=== PATIENT | female | born 1990 | race Caucasian/White ===

== ENCOUNTER 2021-06-17 15:57 | Emergency (ER) | payer MEDICAID, SELFPAY ==
[2021-06-17 15:58] VITALS: BP 136/87; PULSE 117; RESP 18; TEMP 36.1; O2SAT 97; BMI 37.1
--- NOTE | 2021-06-17 20:01 | RAD_ITS ---
EXAM: XR RIGHT FOOT COMPLETE, 3 OR MORE VIEWS CLINICAL INDICATION: Injury/Pain TECHNIQUE: Frontal, lateral and oblique views of the right foot. This report was created using [employer] report generation technology. COMPARISON: None. FINDINGS: BONES/JOINTS: Prominent plantar calcaneal enthesophyte. No significant degenerative joint effusion. No acute fracture. No subluxation. Normal alignment. No sclerotic or destructive changes observed. SOFT TISSUES: Soft tissue fullness along the lateral aspect of the forefoot centered at the metatarsophalangeal joint. No soft tissue gas identified. Soft tissue swelling is seen about the dorsal aspect of the forefoot. No radiopaque foreign body. RAD/Foot min 3 Views IMPRESSION: Soft tissue swelling along the lateral aspect of the forefoot. Differential includes cellulitis, phlegmon, abscess, swelling, and hematoma in the appropriate setting. Electronically Signed: Perico Olguin MD at 21:18 EST Tel , Service support ,
--- NOTE | 2021-06-17 20:02 | ED.VIS.LOWEX ---
HPI History of Present Illness HPI Narrative: Patient presents with redness and swelling to her right foot that began yesterday. Patient states it is getting worse. Patient states she's had an infection over this area in the past. Patient admits to some drainage coming from the area. Patient states the pain is constant. Patient describes it as burning. Patient states it is worse with ambulation and better with elevation and rest. Patient denies any trauma or injury. Patient denies any paresthesias or weakness. Chief Complaint: Wound Informant: patient Onset/Context/Timing Onset: Yesterday Context: Gradual Onset Timing: Continuous Quality of Pain: Burning Location: Right foot Worsened by: Ambulation Relieved by: Rest Associated Symptoms Associated Symptoms: Negative for Parasthesia, Weakness and Loss of Funtion PFSH PFSH Medical History Asthma Diabetes Home Medications albuterol sulfate 90 mcg/actuation aerosol inhaler 2 puff INHALATION Q6H PRN #8.5 g 04/15/21 [Rx Last Taken Unknown] amoxicillin-pot clavulanate 875 mg PO Q12H #20 tablet 06/17/21 [Rx Last Taken Unknown] sulfamethoxazole-trimethoprim 1 tab PO BID #20 tablet 06/17/21 [Rx Last Taken Unknown] Allergy/AdvReac Type Severity Reaction Status Date / Time No Known Allergies Allergy Unverified 06/17/21 16:00 Surgical History no surgical history Social History Smoking Status: Current some day smoker tobacco type: cigarettes ROS ROS ED Constitutional Constitutional ED: Denies chills or fever(s) Eyes Eyes: Denies blurry vision or change in vision ENT ENT ED: Denies rhinorrhea or sore throat Cardiovascular Cardiovascular: Denies chest pain or palpitations Respiratory/Chest Respiratory/Chest: Denies cough or dyspnea Gastrointestinal Gastrointestinal: Denies nausea or vomiting Genitourinary Genitourinary ED: Denies dysuria or hematuria Musculoskeletal Musculoskeletal: Denies back pain or neck pain Integumentary Denies abscess or rash Neurologic Neurologic: Denies headache(s) or weakness Allergic/Immunologic Allergic/Immunologic ED: Denies mouth swelling or urticaria EXAM Physical Exam Const Vital Signs: 06/17/21 15:58 06/17/21 20:52 06/17/21 20:53 Temperature 96.9 F L 96.9 F L Temperature Source Temporal Temporal Pulse Rate 117 H 89 89 Respiratory Rate 18 18 18 Blood Pressure 136/87 H 134/84 H 134/84 H Blood Pressure Mean 103 100 100 Pulse Ox 97 97 97 Oxygen Delivery Method Room Air Room Air Room Air Positive well nourished and well developed General Appearance ED: well developed HEENT Reports moist mucous membranes Neck supple and no JVD GI normal to inspection, nondistended, normoactive bowel sounds Extremity normal to inspection Extremity Narrative: There is edema, erythema, warmth over the lateral aspect of the right forefoot. There is some mild extension of the erythema over the anterior aspect of the ankle. There is an open blister formation noted over the lateral aspect of the right foot. There is some serous drainage noted. There is no purulent discharge or drainage. Sensation was intact to light touch in all digits. Capillary refill was less than 2 seconds in all digits. Pedal pulses were equal bilaterally. General Extremety ED: Yes edema; Negative for tenderness General Extremity: edema Neuro oriented x3, CN's II-XII intact bilaterally and no sensory deficits noted Sensorium / Orientation: alert Motor Exam: strength 5/5 throughout Psych mental status grossly normal Skin no rashes or lesions noted MDM MDM MDM Narrative Medical decision making narrative: Patient was given a dose of Unasyn here. CBC shows a leukocytosis of 18.9. Comprehensive metabolic profile was essentially within normal limits with the exception of an elevated glucose of 319. Lactate was normal at 1.4. X-rays of the right foot were obtained. There are 3 views. On my interpretation, there is no acute fracture. There is no evidence of osteomyelitis. There is soft tissue swelling noted. Radiologist also interpreted the x-rays and agrees. Lab Data Attestation: I reviewed the patient's lab results. Labs: Laboratory Results - last 24 hr 06/17/21 06/17/21 06/17/21 20:30 20:30 20:30 WBC 18.9 H RBC 5.07 Hgb 13.9 Hct 42.2 MCV 83.2 MCH 27.4 MCHC 32.9 RDW Std Deviation 38.6 RDW Coeff of John 12.8 Plt Count 329 MPV 9.9 Immature Gran % (Auto) 0.600 Neut % (Auto) 70.1 H Lymph % (Auto) 22.3 [place] % (Auto) 6.6 Eos % (Auto) 0.1 Baso % (Auto) 0.3 Absolute Neuts (auto) 13.3 H Absolute Lymphs (auto) 4.22 Nucleated RBC % 0 Sodium 134 L Potassium 3.4 L Chloride 96 L Carbon Dioxide 28.0 Anion Gap 10 BUN 9 Creatinine 0.78 Estim Creat Clear Calc 99.63 Est GFR (MDRD) Af Amer 113 Est GFR (MDRD) Non-Af 93 BUN/Creatinine Ratio 11.6 Glucose 319 H Lactic Acid 1.4 Calcium 9.3 Total Bilirubin 0.70 AST 7 L ALT 14 Alkaline Phosphatase 77 Total Protein 8.4 H Albumin 3.3 Globulin 5.1 H Albumin/Globulin Ratio 0.6 L Radiography Diagnostic Testing: Clinical Impression(s) from Imaging Studies Foot X-Ray 06/17/21 20:01 IMPRESSION: Soft tissue swelling along the lateral aspect of the forefoot. Differential includes cellulitis, phlegmon, abscess, swelling, and hematoma in the appropriate setting. Electronically Signed: Perico Olguin MD at 21:18 EST Tel , Service support , Discharge Plan Triage Chief Complaint: Wound ED Provider: Rickey Shepard Dx/Rx/DC Orders Clinical Impression: Unspecified open wound, right foot, initial encounter, Cellulitis of foot, right Instructions: ED Cellulitis Prescriptions: New sulfamethoxazole-trimethoprim [sulfamethoxazole-trimethoprim] 1 TABLET tablet 1 tab PO BID Qty: 20 RF: 0 amoxicillin-pot clavulanate [amoxicillin-pot clavulanate] 875 MG tablet 875 mg PO Q12H Qty: 20 RF: 0 No Action albuterol sulfate [ProAir HFA] 90 mcg/actuation HFA aerosol inhaler 2 puff inhalation Q6H PRN (Reason: shortness of breath or wheezing) Qty: 8.5 RF: 0 Primary Care Provider: Care Physician,No Primary Referrals: Lester Elliott MD [STAFF PHYSICIAN] - 3-5 Days Care Physician,No Primary [Primary Care Provider] - Disposition Disposition: Home, Self Care
[2021-06-17 20:44] LABS: Absolute Lymphocyte Count 4.22 X10^3/uL (0.83-4.51); Absolute Neutrophil Count 13.3 X10^3/uL (2.0-7.7); Basophil# 0.05 X10^3/uL; Basophil% 0.3 % (0-1); Eosinophil# 0.02 X10^3/uL; Eosinophils% 0.1 % (0-5); Hematocrit 42.2 % (37-47); Hemoglobin 13.9 g/dL (12.0-15.0); Lymphocyte # 4.22 X10^3/ul (0.83-4.51); Lymphocyte % 22.3 % (19-41); Mean Corp Hgb Conc 32.9 g/dL (32-36); Mean Corpuscular Hgb 27.4 pg (27.0-32.0); Mean Corpuscular Volume 83.2 fL (81-99); Mean Platelet Vol. 9.9 fl (6.2-12.0); Monocyte# 1.25 X10^3/uL; Monocyte% 6.6 % (0-10); NRBC Flagged by Analyzer 0 % (0-5); Neutrophil # 13.28 X10^3/uL (2.7-7.7); Neutrophil % 70.1 % (47-70); Platelet Count 329 K/mm3 (150-450); RBC Distribution Width CV 12.8 % (11.6-14.6); RBC Distribution Width SD 38.6 fl (35.1-43.9); Red Blood Count 5.07 M/mm3 (4.2-5.4); White Blood Count 18.9 K/mm3 (4.4-11.0)
[2021-06-17 20:52] VITALS: BP 134/84; PULSE 89; RESP 18; O2SAT 97
[2021-06-17 20:53] VITALS: BP 134/84; PULSE 89; RESP 18; TEMP 36.1; O2SAT 97
[2021-06-17 21:08] LABS: ALB/GLOB Ratio 0.6 RATIO (0.9-2.4); AST(SGOT) 7 U/L (15-37); Alanine Aminotransfer ALT/SGPT 14 U/L (13-56); Albumin, Serum 3.3 g/dL (3.2-5.0); Alkaline Phosphatase 77 U/L (45-117); Anion Gap 10 (5-15); BUN 9 mg/dL (7-18); BUN/Creat Ratio 11.6 RATIO (10-20); Calcium,Total 9.3 mg/dL (8.5-10.1); Chloride 96 mmol/L (98-107); Creatinine, Serum 0.78 mg/dL (0.55-1.02); EST Glomerular Filtration Rate 93 mL/min (>60); Est Glom Filt Rate - Afr Amer 113 mL/min (>60); Estimated Creatinine Clearance 99.63 ml/min; Globulin 5.1 g/dL (2.2-4.2); Glucose 319 mg/dL (74-106); Potassium 3.4 mmol/L (3.5-5.1); Protein, Total 8.4 g/dL (6.4-8.2); Sodium Level 134 mmol/L (136-145)
[2021-06-17 21:09] LABS: Lactic Acid 1.4 mmol/L (0.4-1.9)
[2021-06-17 23:11] VITALS: BP 130/80; PULSE 82; RESP 16; O2SAT 99
== END 2021-06-17 23:11 | disposition home or self-care (01) ==
PROVIDERS: Emergency Provider Emergency Medicine
DX: L03.115 Cellulitis of right lower limb (principal); J45.909 Unspecified asthma, uncomplicated; E11.9 Type 2 diabetes mellitus without complications; F17.210 Nicotine dependence, cigarettes, uncomplicated; Z79.51 Long term (current) use of inhaled steroids
CPT/HCPCS: 36415; 73630; 80053; 83605; 85025; 87040; 96365; 96366; 99283; A4216; J0295

== ENCOUNTER 2021-06-19 09:00 | Emergency (ER) | payer MEDICAID, SELFPAY ==
[2021-06-19 09:02] VITALS: BP 127/91; PULSE 103; RESP 16; TEMP 36.3; O2SAT 98; BMI 37.7
--- NOTE | 2021-06-19 09:38 | RAD_ITS ---
STUDY: X-RAY - RIGHT FOOT CLINICAL: Female, 31 years old. Swelling and possible infection along the lateral aspect of the foot. TECHNIQUE: 3 view(s) of the foot. COMPARISON: None. FINDINGS: There is a plantar calcaneal spur. Normal visualized subtalar, talonavicular, calcaneocuboid, tarsal and tarsometatarsal articulations. Normal metatarsi. Normal metatarsophalangeal joint of the great toe. Normal tibial and fibular sesamoid bones. Normal interphalangeal joint of the great toe. Normal phalanges of the great toe. Normal second through fifth metatarsophalangeal joints. Normal interphalangeal joints and phalanges of the lesser toes. Soft tissue swelling overlying the fifth metatarsophalangeal joint. Dorsal soft tissue swelling. RAD/Foot min 3 Views IMPRESSION: Soft tissue swelling overlying the fifth metatarsophalangeal joint. A small plantar spur. Electronically Signed: Bernard Sadler MD at 10:44 EST , Service support ,
[2021-06-19 10:44] LABS: Absolute Lymphocyte Count 3.52 X10^3/uL (0.83-4.51); Absolute Neutrophil Count 7.6 X10^3/uL (2.0-7.7); Basophil# 0.06 X10^3/uL; Basophil% 0.5 % (0-1); Eosinophil# 0.05 X10^3/uL; Eosinophils% 0.4 % (0-5); Hemoglobin 13.4 g/dL (12.0-15.0); Lymphocyte # 3.52 X10^3/ul (0.83-4.51); Lymphocyte % 29.4 % (19-41); Mean Corp Hgb Conc 33.5 g/dL (32-36); Mean Corpuscular Hgb 28.2 pg (27.0-32.0); Mean Platelet Vol. 9.6 fl (6.2-12.0); Monocyte# 0.69 X10^3/uL; Monocyte% 5.8 % (0-10); NRBC Flagged by Analyzer 0 % (0-5); Neutrophil # 7.56 X10^3/uL (2.7-7.7); Neutrophil % 63.1 % (47-70); Platelet Count 342 K/mm3 (150-450); RBC Distribution Width CV 12.8 % (11.6-14.6); RBC Distribution Width SD 39.2 fl (35.1-43.9); Red Blood Count 4.76 M/mm3 (4.2-5.4)
[2021-06-19 10:55] LABS: ALB/GLOB Ratio 0.5 RATIO (0.9-2.4); AST(SGOT) 7 U/L (15-37); Alanine Aminotransfer ALT/SGPT 14 U/L (13-56); Albumin, Serum 2.9 g/dL (3.2-5.0); Alkaline Phosphatase 84 U/L (45-117); Anion Gap 6 (5-15); BUN 6 mg/dL (7-18); BUN/Creat Ratio 7.7 RATIO (10-20); Calcium,Total 9.2 mg/dL (8.5-10.1); Chloride 101 mmol/L (98-107); Creatinine, Serum 0.78 mg/dL (0.55-1.02); EST Glomerular Filtration Rate 93 mL/min (>60); Est Glom Filt Rate - Afr Amer 113 mL/min (>60); Estimated Creatinine Clearance 99.63 ml/min; Globulin 5.4 g/dL (2.2-4.2); Glucose 326 mg/dL (74-106); Potassium 4.2 mmol/L (3.5-5.1); Protein, Total 8.3 g/dL (6.4-8.2); Sodium Level 134 mmol/L (136-145)
--- NOTE | 2021-06-19 11:39 | ED.VIS.LOWEX ---
HPI History of Present Illness HPI Narrative: Patient presents with increased redness and swelling to her right foot over the past 4 days. Patient was seen here 2 days ago and her erythema was localized to the foot. Patient states that she has since noted some redness going up her leg to her knee. Patient admits to subjective fevers and chills but states her temperature was only 99-100 at home. Patient describes her pain is dull. Patient admits to some persistent serous drainage from the wound. Patient states her pain is worse with palpation. Chief Complaint: Wound Check Informant: patient Onset/Context/Timing Onset: Days (4) Context: Gradual Onset Timing: Continuous Quality of Pain: Dull Worsened by: Palpation Relieved by: Nothing Associated Symptoms Associated Symptoms: Negative for Parasthesia, Weakness and Loss of Funtion PFSH PFS Medical History Asthma Diabetes Home Medications albuterol sulfate 90 mcg/actuation aerosol inhaler 2 puff INHALATION Q6H PRN #8.5 g 04/15/21 [Rx Last Taken Unknown] amoxicillin-pot clavulanate 875 mg PO Q12H #20 tablet 06/17/21 [Rx Last Taken Unknown] sulfamethoxazole-trimethoprim 1 tab PO BID #20 tablet 06/17/21 [Rx Last Taken Unknown] Allergy/AdvReac Type Severity Reaction Status Date / Time No Known Allergies Allergy Verified 06/19/21 09:03 Social History Smoking Status: Current some day smoker tobacco type: cigarettes ROS ROS ED Constitutional Constitutional ED: Reports chills, fever(s) and subjective Eyes Eyes: Denies blurry vision or change in vision ENT ENT ED: Denies rhinorrhea or sore throat Cardiovascular Cardiovascular: Denies chest pain or palpitations Respiratory/Chest Respiratory/Chest: Reports cough; Denies dyspnea Gastrointestinal Gastrointestinal: Reports nausea and vomiting Genitourinary Genitourinary ED: Denies dysuria or hematuria Musculoskeletal Musculoskeletal: Denies back pain or neck pain Integumentary Reports rash; Denies abscess Neurologic Neurologic: Denies headache(s) or weakness Allergic/Immunologic Allergic/Immunologic ED: Denies mouth swelling or urticaria EXAM Physical Exam Const Vital Signs: 06/19/21 09:02 Temperature 97.4 F L Temperature Source Temporal Pulse Rate 103 H Respiratory Rate 16 Blood Pressure 127/91 H Blood Pressure Mean 103 Pulse Ox 98 Oxygen Delivery Method Room Air Positive well nourished, well developed and obese General Appearance ED: well developed Nutritional Appearance: obese HEENT Reports moist mucous membranes Neck full ROM Resp normal respiratory effort and clear to auscultation bilaterally Cardio regular rate and regular rhythm GI non-tender Palpation: soft Extremity Extremity Narrative: There is large blister formation over the lateral aspect of the right foot over the distal fifth metatarsal area. There is some mild serous drainage from the area. There is erythema and warmth over the dorsum and lateral aspect of the right foot. There is erythematous streaking up the left lower leg to the distal thigh. There is no calf tenderness. There is good range of motion. Sensation was intact to light touch in all digits. Capillary refill was less than 2 seconds in all digits Neuro oriented x3, CN's II-XII intact bilaterally, moves all extremities and no sensory deficits noted Sensorium / Orientation: alert Motor Exam: strength 5/5 throughout Psych mental status grossly normal MDM MDM MDM Narrative Medical decision making narrative: Patient was given a dose of Unasyn here. CBC shows a slight leukocytosis of 12.0. This is actually improved from 2 days ago. Comprehensive metabolic profile was obtained. Glucose was 326. CO2 and anion gap are normal. X-rays of the right foot were repeated today. There are 3 views. On my interpretation, there is some soft tissue swelling. There is no fracture or evidence of osteomyelitis. Radiologist also interpreted the x-rays and agrees. Given the lymphangitic streaking, I recommended admission to the hospital. Patient states she does not want to stay in the hospital and needs to go out of town tonight. I advised the patient that her lymphangitic streaking may get worse and spread systemically. Patient was instructed to continue her antibiotics as previously prescribed. Patient was instructed to return if worse in any way. Patient understood and was agreeable with the plan. All questions were answered. Lab Data Attestation: I reviewed the patient's lab results. Labs: Laboratory Results - last 24 hr 06/19/21 06/19/21 10:30 10:30 WBC 12.0 H RBC 4.76 Hgb 13.4 Hct 40.0 MCV 84.0 MCH 28.2 MCHC 33.5 RDW Std Deviation 39.2 RDW Coeff of John 12.8 Plt Count 342 MPV 9.6 Immature Gran % (Auto) 0.800 Neut % (Auto) 63.1 Lymph % (Auto) 29.4 [place] % (Auto) 5.8 Eos % (Auto) 0.4 Baso % (Auto) 0.5 Absolute Neuts (auto) 7.6 Absolute Lymphs (auto) 3.52 Nucleated RBC % 0 Sodium 134 L Potassium 4.2 Chloride 101 Carbon Dioxide 27.0 Anion Gap 6 BUN 6 L Creatinine 0.78 Estim Creat Clear Calc 99.63 Est GFR (MDRD) Af Amer 113 Est GFR (MDRD) Non-Af 93 BUN/Creatinine Ratio 7.7 L Glucose 326 H Calcium 9.2 Total Bilirubin 0.50 AST 7 L ALT 14 Alkaline Phosphatase 84 Total Protein 8.3 H Albumin 2.9 L Globulin 5.4 H Albumin/Globulin Ratio 0.5 L Radiography Diagnostic Testing: Clinical Impression(s) from Imaging Studies Foot X-Ray 06/19/21 09:38 IMPRESSION: Soft tissue swelling overlying the fifth metatarsophalangeal joint. A small plantar spur. Electronically Signed: Bernard Sadler MD at 10:44 EST , Service support , Discharge Plan Triage Chief Complaint: Wound Check ED Provider: Rickey Shepard Dx/Rx/DC Orders Clinical Impression: Cellulitis of foot, right, Acute lymphangitis of right lower extremity Instructions: ED Cellulitis, ED Lymphangitis Prescriptions: No Action albuterol sulfate [ProAir HFA] 90 mcg/actuation HFA aerosol inhaler 2 puff inhalation Q6H PRN (Reason: shortness of breath or wheezing) Qty: 8.5 RF: 0 sulfamethoxazole-trimethoprim [sulfamethoxazole-trimethoprim] 1 TABLET tablet 1 tab PO BID Qty: 20 RF: 0 amoxicillin-pot clavulanate [amoxicillin-pot clavulanate] 875 MG tablet 875 mg PO Q12H Qty: 20 RF: 0 Primary Care Provider: Care Physician,No Primary Referrals: Care Physician,No Primary [Primary Care Provider] - Disposition Disposition: Against Medical Advice
--- NOTE | 2021-06-19 12:33 | ED.RN ---
Patient refusing admission to hospital, wanting to leave AMA.
[2021-06-19 12:37] VITALS: BP 129/85; PULSE 71; RESP 15; O2SAT 98
== END 2021-06-19 12:43 | disposition left against medical advice (07) ==
PROVIDERS: Emergency Provider Emergency Medicine
DX: L03.115 Cellulitis of right lower limb (principal); L03.125 Acute lymphangitis of right lower limb; J45.909 Unspecified asthma, uncomplicated; E11.9 Type 2 diabetes mellitus without complications; F17.210 Nicotine dependence, cigarettes, uncomplicated; E66.9 Obesity, unspecified; Z79.51 Long term (current) use of inhaled steroids
CPT/HCPCS: 73630; 80053; 85025; 96365; 99284; J7050; A4216; J0295

== ENCOUNTER 2021-08-10 22:31 | Emergency (ER) | payer MEDICAID, SELFPAY ==
[2021-08-10 22:32] VITALS: BP 121/92; PULSE 127; RESP 16; TEMP 36.4; O2SAT 98; BMI 35.5
[2021-08-10 23:04] LABS: Absolute Lymphocyte Count 0.86 X10^3/uL (0.83-4.51); Absolute Neutrophil Count 12.4 X10^3/uL (2.0-7.7); Basophil# 0.03 X10^3/uL; Basophil% 0.2 % (0-1); Eosinophil# 0.04 X10^3/uL; Eosinophils% 0.3 % (0-5); Hemoglobin 14.7 g/dL (12.0-15.0); Lymphocyte # 0.86 X10^3/ul (0.83-4.51); Lymphocyte % 6.1 % (19-41); Mean Corp Hgb Conc 33.4 g/dL (32-36); Mean Corpuscular Hgb 27.5 pg (27.0-32.0); Mean Corpuscular Volume 82.4 fL (81-99); Mean Platelet Vol. 9.6 fl (6.2-12.0); Monocyte# 0.56 X10^3/uL; NRBC Flagged by Analyzer 0 % (0-5); Neutrophil # 12.44 X10^3/uL (2.7-7.7); Platelet Count 343 K/mm3 (150-450); RBC Distribution Width CV 13.1 % (11.6-14.6); Red Blood Count 5.34 M/mm3 (4.2-5.4)
[2021-08-10] MEDS: 0.9% Normal Saline 1,000 ML 1000 ML IV (23:08)
[2021-08-10] MEDS: Dicyclomine 20 MG/2 ML Vial IM (23:09)
[2021-08-10] MEDS: Ondansetron 4 MG/2 ML Vial IV (23:09)
[2021-08-10 23:13] LABS: Mucous, Urine 0 SEEN /hpf (<or=2+)
[2021-08-10 23:14] LABS: Internal QC Validated? YES +Cl - CLEAR BKGD; Pregnancy, Serum, hCG Quali. NEGATIVE Negative
[2021-08-10 23:17] LABS: Anion Gap 11 (5-15); BUN 16 mg/dL (7-18); BUN/Creat Ratio 18.6 RATIO (10-20); Calcium,Total 8.8 mg/dL (8.5-10.1); Chloride 100 mmol/L (98-107); Creatinine, Serum 0.86 mg/dL (0.55-1.02); EST Glomerular Filtration Rate 83 mL/min (>60); Est Glom Filt Rate - Afr Amer 100 mL/min (>60); Estimated Creatinine Clearance 90.36 ml/min; Glucose 406 mg/dL (74-106); Potassium 4.2 mmol/L (3.5-5.1); Sodium Level 134 mmol/L (136-145)
[2021-08-10 23:23] LABS: Color, Urine Yellow (Yellow); Glucose, Dipstick 1000 mg/dl (Normal); Leukocyte Esterase-Dipstick 25 /ul (Negative); Nitrite-Dipstick Negative (Negative); Occult Blood-Urine 250 /ul (Negative); Protein-Dipstick 30 mg/dl (Negative); Specific Gravity, Urine 1.005 (1.002-1.030); Urine Bilirubin Dipstick Negative (Negative); Urine Clarity Cloudy (Clear); Urine Urobilinogen 1 mg/dl (Normal)
[2021-08-10 23:36] LABS: Ketone-Dipstick 150 mg/dl (Negative)
[2021-08-10 23:37] LABS: White Blood Cells 5-10 SEEN /hpf (0-5)
[2021-08-10 23:38] LABS: Bacteria 1+ /hpf (None Seen); Red Blood Cells-Urine > 100 SEEN /hpf (0-5); Squamous Epithelial Cells - UA 0-5 SEEN /hpf (5-10)
--- NOTE | 2021-08-10 23:44 | EDS_ITS ---
HPI History of Present Illness Chief Complaint: Nausea/Vomiting/Diarrhea Informant: patient Onset/Context/Timing Onset: Today Context: Gradual Onset Current Severity: Moderate Maximum Severity: Moderate Narrative Narrative: Patient presents secondary to nausea, vomiting, and diarrhea. Symptoms started earlier today and progressed. She denies URI symptoms. No fever or chills. 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 She is tested for Covid daily and had a negative rapid test today. [facility] Medical History Asthma Diabetes Home Medications dicyclomine 20 mg PO TID PRN #14 tab 08/10/21 [Rx Last Taken Unknown] ondansetron 4 mg PO Q8H PRN #10 tab 08/10/21 [Rx Last Taken Unknown] Allergy/AdvReac Type Severity Reaction Status Date / Time No Known Allergies Allergy Verified 08/10/21 22:33 Social History Smoking Status: Current some day smoker tobacco type: cigarettes ROS ROS ED Constitutional Constitutional ED: Denies chills or fever(s) Eyes Eyes: Denies change in vision ENT ENT ED: Denies sore throat Cardiovascular Cardiovascular: Denies chest pain Respiratory/Chest Respiratory/Chest: Denies cough or dyspnea Gastrointestinal Gastrointestinal: Reports abdominal pain, diarrhea, nausea and vomiting Genitourinary Genitourinary ED: Denies dysuria Musculoskeletal Musculoskeletal: Denies back pain Integumentary Denies rash Neurologic Neurologic: Denies headache(s) or weakness Allergic/Immunologic Allergic/Immunologic ED: Denies urticaria EXAM Physical Exam Const Vital Signs: 08/10/21 22:32 08/10/21 23:57 Temperature 97.6 F L Temperature Source Temporal Pulse Rate 127 H 109 H Respiratory Rate 16 16 Blood Pressure 121/92 H 125/88 H Blood Pressure Mean 101 100 Pulse Ox 98 97 Oxygen Delivery Method Room Air Room Air Positive well nourished and well developed General Appearance ED: well developed HEENT Reports moist mucous membranes Eyes PERRL and EOMs intact bilaterally Neck supple Chest Wall inspection of chest normal and palpation of chest normal Resp normal respiratory effort and clear to auscultation bilaterally Cardio regular rhythm Rate: tachycardic GI non-tender Auscultation: hypoactive bowel sounds Palpation: soft Neuro oriented x3 Sensorium / Orientation: alert Psych mental status grossly normal Skin no rashes or lesions noted MDM MDM MDM Narrative Medical decision making narrative: Patient was given IV fluids along with Zofran and Bentyl. Lab work obtained. Lab Data Attestation: I reviewed the patient's lab results. Labs: Laboratory Results - last 24 hr 08/10/21 08/10/21 08/10/21 22:45 22:45 22:45 WBC 14.0 H RBC 5.34 Hgb 14.7 Hct 44.0 MCV 82.4 MCH 27.5 MCHC 33.4 RDW Std Deviation 39.0 RDW Coeff of John 13.1 Plt Count 343 MPV 9.6 Immature Gran % (Auto) 0.400 Neut % (Auto) 89.0 H Lymph % (Auto) 6.1 L [place] % (Auto) 4.0 Eos % (Auto) 0.3 Baso % (Auto) 0.2 Absolute Neuts (auto) 12.4 H Absolute Lymphs (auto) 0.86 Nucleated RBC % 0 Sodium 134 L Potassium 4.2 Chloride 100 Carbon Dioxide 23.0 Anion Gap 11 BUN 16 Creatinine 0.86 Estim Creat Clear Calc 90.36 Est GFR (MDRD) Af Amer 100 Est GFR (MDRD) Non-Af 83 BUN/Creatinine Ratio 18.6 Glucose 406 H Calcium 8.8 Serum , Qual NEGATIVE Urine Color Urine Clarity Urine pH Ur Specific [place] Urine Protein Urine Glucose (UA) Urine Ketones Urine Occult Blood Urine Nitrite Urine Bilirubin Urine Urobilinogen Ur Leukocyte Esterase Urine RBC Urine WBC Ur Squamous Epith Cells Urine Bacteria Urine Mucus POC Glucose 08/10/21 08/10/21 23:07 23:47 WBC RBC Hgb Hct MCV MCH MCHC RDW Std Deviation RDW Coeff of John Plt Count MPV Immature Gran % (Auto) Neut % (Auto) Lymph % (Auto) [place] % (Auto) Eos % (Auto) Baso % (Auto) Absolute Neuts (auto) Absolute Lymphs (auto) Nucleated RBC % Sodium Potassium Chloride Carbon Dioxide Anion Gap BUN Creatinine Estim Creat Clear Calc Est GFR (MDRD) Af Amer Est GFR (MDRD) Non-Af BUN/Creatinine Ratio Glucose Calcium Serum , Qual Urine Color Yellow Urine Clarity Cloudy Urine pH 7.0 Ur Specific [place] 1.005 Urine Protein 30 H Urine Glucose (UA) 1000 H Urine Ketones 150 A* Urine Occult Blood 250 H Urine Nitrite Negative Urine Bilirubin Negative Urine Urobilinogen 1 H Ur Leukocyte Esterase 25 H Urine RBC > 100 SEEN Urine WBC 5-10 SEEN Ur Squamous Epith Cells 0-5 SEEN Urine Bacteria 1+ Urine Mucus 0 SEEN POC Glucose 377 H Treatment and Re-Evaluation Comments:: Repeat evaluation patient does feel significantly improved. Lab work reviewed. White count does reveal elevated white count at 14 with a left shift. I believe this is likely demargination from vomiting. Chemistry studies unremarkable other than a glucose of 406. test negative. Urinalysis shows significant glucose in the urine along with 150 ketones. Patient's anion gap and bicarb are normal. Heart rate is still 105 and blood sugar still 370. She will receive a second liter of IV fluid. After second liter of IV fluid heart rate is in the 90s. She currently denies being on any medication for diabetes and states she has not been for the past couple of years. I will give her the healthcare provider directory to help her find a local primary care physician and we discussed the importance of controlling her blood sugar. Discharge Plan Triage Chief Complaint: Nausea/Vomiting/Diarrhea ED Provider: Deann Guerrero Dx/Rx/DC Orders Clinical Impression: Viral gastroenteritis Instructions: ED Gastroenteritis, Viral (Adult) Prescriptions: New ondansetron 4 mg tablet,disintegrating 4 mg PO Q8H PRN (Reason: nausea and vomiting) Qty: 10 RF: 0 dicyclomine 20 mg tablet 20 mg PO TID PRN (Reason: abdominal cramping) Qty: 14 RF: 0 Primary Care Provider: Care Physician,No Primary Referrals: Barbara Choudhury MD [STAFF PHYSICIAN] - As soon as possible Care Physician,No Primary [Primary Care Provider] - Disposition Disposition: Home, Self Care
[2021-08-10] MEDS: 0.9% Normal Saline 1,000 ML 150 ML IV (23:48)
[2021-08-10] MEDS: 0.9% Normal Saline 1,000 ML 999 ML IV (23:56)
[2021-08-10 23:57] VITALS: BP 125/88; PULSE 109; RESP 16; O2SAT 97
[2021-08-11 00:06] LABS: Bedside Glucose 377 mg/dL (70-110)
[2021-08-11 00:58] VITALS: PULSE 107; RESP 18; O2SAT 100
--- NOTE | 2021-08-12 10:10 | CASEMGMT ---
RYNE LUJAN ED follow-up: RYNE LUJAN placed call to patient's telephone number listed on demographics, no answer. Voicemail has not been set up, unable to leave message. RYNE Morales CM
== END 2021-08-11 00:59 | disposition home or self-care (01) ==
PROVIDERS: Emergency Provider Emergency Medicine; Visit Provider Emergency Medicine
DX: A08.4 Viral intestinal infection, unspecified (principal); E11.9 Type 2 diabetes mellitus without complications; F17.210 Nicotine dependence, cigarettes, uncomplicated; J45.909 Unspecified asthma, uncomplicated; Z79.899 Other long term (current) drug therapy
CPT/HCPCS: 80048; 81001; 82962; 84703; 85025; 96361; 96372; 96374; 99284; J7030; A4216; J2405

== ENCOUNTER 2021-10-24 08:17 | Emergency (ER) | payer MEDICAID, SELFPAY ==
[2021-10-24 08:18] VITALS: BP 148/92; PULSE 98; RESP 16; TEMP 36.3; O2SAT 100; BMI 33.7
[2021-10-24 08:30] VITALS: BP 148/92; PULSE 98; RESP 16; TEMP 36.3; O2SAT 100
--- NOTE | 2021-10-24 08:37 | EX.ED.DYSGE1 ---
HPI History of Present Illness Chief Complaint: Abscess Informant: patient Narrative Narrative: 31-year-old female states that she believes she was bit by something on Wednesday. She began to have some itching in the left upper quadrant of her abdomen on Wednesday and noticed a infectious looking spot. She states it is progressively swollen and is now more painful. She has had a prior occurrence of this on her neck. She denies any fevers. No current antibiotics. She has noted some clear drainage from the wound when she squeezes it [facility] Medical History Asthma Diabetes Home Medications cephalexin 500 mg PO Q6 #40 capsule 10/24/21 [Rx Last Taken Unknown] hydrocodone-acetaminophen 1 tab PO Q6H PRN PRN 3 Days #10 tablet 10/24/21 [Rx Last Taken Unknown] sulfamethoxazole-trimethoprim 1 tab PO BID #20 tablet 10/24/21 [Rx Last Taken Unknown] Allergy/AdvReac Type Severity Reaction Status Date / Time No Known Allergies Allergy Verified 10/24/21 08:19 Social History Smoking Status: Current some day smoker tobacco type: cigarettes ROS ROS ED Constitutional Constitutional ED: Denies chills, fever(s) or weight loss Eyes Eyes: Denies change in vision or diplopia ENT ENT ED: Denies ear pain, rhinorrhea or sore throat Cardiovascular Cardiovascular: Denies chest pain, orthopnea, palpitations or racing heartbeat Respiratory/Chest Respiratory/Chest: Denies cough, dyspnea or orthopnea Gastrointestinal Gastrointestinal: Denies abdominal pain, diarrhea, nausea or vomiting Genitourinary Genitourinary ED: Denies dysuria, hematuria or urinary frequency Musculoskeletal Musculoskeletal: Denies arthralgias or myalgias Integumentary Reports abscess; Denies rash Neurologic Neurologic: Denies headache(s) or weakness Psychiatric Psychiatric: Denies anxiety, depression, suicidal ideation or suicidal thoughts Endocrine Endocrinology: Denies polydipsia, polyphagia or polyuria Allergic/Immunologic Allergic/Immunologic ED: Denies mouth swelling, tongue swelling or urticaria EXAM Physical Exam Const Vital Signs: 10/24/21 08:18 10/24/21 08:30 Temperature 97.3 F L 97.3 F L Temperature Source Temporal Temporal Pulse Rate 98 98 Respiratory Rate 16 16 Blood Pressure 148/92 H 148/92 H Blood Pressure Mean 110 110 Pulse Ox 100 100 Oxygen Delivery Method Room Air Room Air Positive well nourished, well developed and obese General Appearance ED: well developed Nutritional Appearance: obese HEENT Reports normocephalic, head/scalp atraumatic, TM's clear and moist mucous membranes Negative for trauma Tympanic Membrane ED: Yes TM's clear Eyes PERRL and EOMs intact bilaterally Neck no lymphadenopathy, supple and no JVD Resp normal respiratory effort and clear to auscultation bilaterally Cardio regular rate, regular rhythm and no murmurs GI normal to inspection, nondistended, normoactive bowel sounds and non-tender Palpation: soft Back/Spine no CVA tenderness and normal ROM Extremity normal to inspection General Extremety ED: Negative for edema General Extremity: Negative for edema Neuro oriented x3 and CN's II-XII intact bilaterally Sensorium / Orientation: alert Motor Exam: strength 5/5 throughout Psych mental status grossly normal Mood & Affect: Negative for depressed or tearful Skin Skin Narrative: Left upper quadrant the patient's abdomen shows a area of faint erythema of about 5 cm in circumference. The center of this is a hardened pustule with a black center. There is no fluctuance. MDM MDM MDM Narrative Medical decision making narrative: Clinically there is not appear to be anything to be drained from this wound at this time. She will be started on antibiotics and pain medication. Instructed on warm compresses. She was advised this may change clinically to require drainage but at this time I do not believe it would be of benefit. Patient is comfortable with this plan Discharge Plan Triage Chief Complaint: Abscess ED Provider: Tesfaye Mitchell Dx/Rx/DC Orders Clinical Impression: Cutaneous abscess of abdominal wall Instructions: ED Abscess Antibiotic Treatment Only Prescriptions: New hydrocodone-acetaminophen [hydrocodone-acetaminophen] 1 TABLET tablet 1 tab PO Q6H PRN PRN (Reason: Pain) 3 Days Qty: 10 RF: 0 sulfamethoxazole-trimethoprim [sulfamethoxazole-trimethoprim] 1 TABLET tablet 1 tab PO BID Qty: 20 RF: 0 cephalexin [cephalexin] 500 MG capsule 500 mg PO Q6 Qty: 40 RF: 0 Primary Care Provider: Care Physician,No Primary Referrals: Carlos Lopez MD [STAFF PHYSICIAN] - As Needed Care Physician,No Primary [Primary Care Provider] - Disposition Disposition: Home, Self Care
== END 2021-10-24 08:53 | disposition home or self-care (01) ==
LOC: ED 08:45
PROVIDERS: Emergency Provider Emergency Medicine; Visit Provider Emergency Medicine
DX: L02.211 Cutaneous abscess of abdominal wall (principal); E11.9 Type 2 diabetes mellitus without complications; F17.210 Nicotine dependence, cigarettes, uncomplicated; J45.909 Unspecified asthma, uncomplicated
CPT/HCPCS: 99282

== ENCOUNTER 2021-10-29 08:58 | Emergency (ER) | payer MEDICAID, SELFPAY ==
[2021-10-29 08:59] VITALS: BP 140/89; PULSE 105; RESP 17; TEMP 36.1; O2SAT 98; BMI 34.6
--- NOTE | 2021-10-29 09:13 | ED.VIS.GI ---
HPI HPI - GI History of Present Illness Chief Complaint: Constipation Informant: patient Abdominal Pain/Flank Pain Onset: Weeks (1) Context: Gradual Onset Timing: Continuous Quality: Aching Location: RLQ and LLQ Worsened by: Nothing Relieved by: Nothing Nausea/Vomiting/Emesis GI Symptom: Positive for Nausea and Vomiting Diarrhea/Melena/Hematochezia GI Symptom: Negative for Melena and Hematochezia Associated Symptoms Associated Symptoms: Negative for Dysuria, Frequency and Hematuria Narrative Narrative: Patient presents with abdominal pain and constipation that has been getting worse over the past week. Patient states it is gradually gotten worse. Patient states she has some aching pain over her lower abdomen. Patient states nothing makes it better nothing makes it worse. Patient states she has been using [id number] laxatives over the last week. Patient states that now she has liquid stool. Patient denies any melena or hematochezia. Patient admits to some nausea and vomiting today. Patient denies any urinary complaints. Patient denies any fevers or chills. PFSH PFS Medical History Asthma Diabetes Home Medications cephalexin 500 mg PO Q6 #40 capsule 10/24/21 [Rx Last Taken Unknown] sulfamethoxazole-trimethoprim 1 tab PO BID #20 tablet 10/24/21 [Rx Last Taken Unknown] docusate sodium [Colace] 100 mg PO DAILY #20 cap 10/29/21 [Rx Last Taken Unknown] Allergy/AdvReac Type Severity Reaction Status Date / Time No Known Allergies Allergy Verified 10/29/21 08:58 Social History Smoking Status: Current some day smoker tobacco type: cigarettes ROS ROS ED Constitutional Constitutional ED: Denies chills or fever(s) Eyes Eyes: Denies blurry vision or change in vision ENT ENT ED: Denies rhinorrhea or sore throat Cardiovascular Cardiovascular: Denies chest pain or palpitations Respiratory/Chest Respiratory/Chest: Denies cough or dyspnea Gastrointestinal Gastrointestinal: Reports abdominal pain, constipation, nausea and vomiting; Denies melena Genitourinary Genitourinary ED: Denies dysuria or hematuria Musculoskeletal Musculoskeletal: Denies back pain or neck pain Integumentary Denies abscess or rash Neurologic Neurologic: Denies headache(s) or weakness Allergic/Immunologic Allergic/Immunologic ED: Denies mouth swelling or urticaria EXAM Physical Exam Const Vital Signs: 10/29/21 08:59 Temperature 96.9 F L Temperature Source Temporal Pulse Rate 105 H Respiratory Rate 17 Blood Pressure 140/89 H Blood Pressure Mean 106 Pulse Ox 98 Oxygen Delivery Method Room Air Positive well nourished, well developed and obese General Appearance ED: well developed and NAD Nutritional Appearance: obese HEENT Reports moist mucous membranes normocephalic Neck supple and no JVD Resp normal respiratory effort and clear to auscultation bilaterally Cardio regular rate and regular rhythm GI non-distended Palpation: soft and tender LLQ, RLQ, LUQ, periumbilical and suprapubic; Negative for guarding or rebound tenderness present Neuro CN's II-XII intact bilaterally, moves all extremities and no sensory deficits noted Sensorium / Orientation: alert, oriented to person, oriented to place and oriented to time Motor Exam: strength 5/5 throughout Psych mental status grossly normal MDM MDM MDM Narrative Medical decision making narrative: Acute abdominal x-rays were obtained. There are 5 views. On my interpretation, there is no evidence of perforation or obstruction. There is nonspecific bowel gas pattern. There is stool throughout the colon. Radiologist also interpreted the x-rays and agrees. CBC shows a mild leukocytosis of 13.0. This is consistent with prior results. Comprehensive metabolic profile showed an elevated glucose of 387 and a sodium of 130. These are also consistent with prior results. Serum hCG was negative. Patient states she was able to move her bowels here in the emergency department prior to obtaining an enema. Patient does not want an enema at this time. Patient was given a prescription for Colace. Patient was instructed to drink plenty of fluids. Patient was instructed to follow-up with her primary care physician in 5 to 7 days. Patient understood and was agreeable with the plan. All questions were answered. Lab Data Attestation: I reviewed the patient's lab results. Labs: Laboratory Results - last 24 hr 10/29/21 10/29/21 10/29/21 09:35 09:35 09:35 WBC 13.0 H RBC 4.95 Hgb 13.3 Hct 39.6 MCV 80.0 L MCH 26.9 L MCHC 33.6 RDW Std Deviation 37.2 RDW Coeff of John 13.1 Plt Count 460 H MPV 9.0 Immature Gran % (Auto) 0.800 Neut % (Auto) 70.3 H Lymph % (Auto) 22.9 [place] % (Auto) 5.3 Eos % (Auto) 0.2 Baso % (Auto) 0.5 Absolute Neuts (auto) 9.2 H Absolute Lymphs (auto) 2.98 Nucleated RBC % 0 Sodium 130 L Potassium 4.4 Chloride 99 Carbon Dioxide 25.0 Anion Gap 6 BUN 12 Creatinine 0.87 Estim Creat Clear Calc 89.32 Est GFR (MDRD) Af Amer 99 Est GFR (MDRD) Non-Af 82 BUN/Creatinine Ratio 13.8 Glucose 387 H Calcium 9.0 Total Bilirubin 0.30 AST 13 L ALT 23 Alkaline Phosphatase 156 H Total Protein 9.0 H Albumin 3.1 L Globulin 5.9 H Albumin/Globulin Ratio 0.5 L HCG, Quant < 1 Radiography Diagnostic Testing: Clinical Impression(s) from Imaging Studies Acute Abdomen Series 10/29/21 09:17 IMPRESSION: Normal x-ray examination of the chest, abdomen, and pelvis. Electronically Signed: Paulo Smalls MD at 10:09 EDT , Discharge Plan Triage Chief Complaint: Constipation ED Provider: Rickey Shepard Dx/Rx/DC Orders Clinical Impression: Constipation, Abdominal pain in female Instructions: ED Constipation (Adult) Prescriptions: New docusate sodium [Colace] 100 mg capsule 100 mg PO DAILY Qty: 20 RF: 0 No Action sulfamethoxazole-trimethoprim [sulfamethoxazole-trimethoprim] 1 TABLET tablet 1 tab PO BID Qty: 20 RF: 0 cephalexin [cephalexin] 500 MG capsule 500 mg PO Q6 Qty: 40 RF: 0 Primary Care Provider: Care Physician,No Primary Referrals: Rosetta Hancock DO [STAFF PHYSICIAN] - 5-7 Days Care Physician,No Primary [Primary Care Provider] - Disposition Disposition: Home, Self Care
--- NOTE | 2021-10-29 09:17 | RAD_ITS ---
STUDY: X-RAY - ACUTE ABDOMINAL SERIES REASON FOR EXAM: Female, 31 years old. Abdominal pain TECHNIQUE: Single view of the chest. Supine, and erect view(s) of the abdomen were obtained. COMPARISON: None. FINDINGS: The lungs are clear and expanded. Normal size heart. Normal mediastinum and chey. Normal visualized pulmonary arteries. Normal visualized aortic arch and descending thoracic aorta. There is a non-specific bowel gas pattern. The soft tissue structures of the abdomen and pelvis are unremarkable. Normal visualized osseous structures. RAD/Acute Abdomen Inc Chest IMPRESSION: Normal x-ray examination of the chest, abdomen, and pelvis. Electronically Signed: Paulo Smalls MD at 10:09 EDT ,
[2021-10-29] MEDS: 0.9% Normal Saline 1,000 ML 1000 ML IV (09:36)
[2021-10-29] MEDS: Ondansetron 4 MG/2 ML Vial IV (09:36)
[2021-10-29 09:43] LABS: Absolute Lymphocyte Count 2.98 X10^3/uL (0.83-4.51); Absolute Neutrophil Count 9.2 X10^3/uL (2.0-7.7); Basophil# 0.06 X10^3/uL; Basophil% 0.5 % (0-1); Eosinophil# 0.03 X10^3/uL; Eosinophils% 0.2 % (0-5); Hematocrit 39.6 % (37-47); Hemoglobin 13.3 g/dL (12.0-15.0); Lymphocyte # 2.98 X10^3/ul (0.83-4.51); Lymphocyte % 22.9 % (19-41); Mean Corp Hgb Conc 33.6 g/dL (32-36); Mean Corpuscular Hgb 26.9 pg (27.0-32.0); Monocyte# 0.69 X10^3/uL; Monocyte% 5.3 % (0-10); NRBC Flagged by Analyzer 0 % (0-5); Neutrophil # 9.17 X10^3/uL (2.7-7.7); Neutrophil % 70.3 % (47-70); Platelet Count 460 K/mm3 (150-450); RBC Distribution Width CV 13.1 % (11.6-14.6); RBC Distribution Width SD 37.2 fl (35.1-43.9); Red Blood Count 4.95 M/mm3 (4.2-5.4)
[2021-10-29 09:57] LABS: ALB/GLOB Ratio 0.5 RATIO (0.9-2.4); AST(SGOT) 13 U/L (15-37); Alanine Aminotransfer ALT/SGPT 23 U/L (13-56); Albumin, Serum 3.1 g/dL (3.2-5.0); Alkaline Phosphatase 156 U/L (45-117); Anion Gap 6 (5-15); BUN 12 mg/dL (7-18); BUN/Creat Ratio 13.8 RATIO (10-20); Chloride 99 mmol/L (98-107); Creatinine, Serum 0.87 mg/dL (0.55-1.02); EST Glomerular Filtration Rate 82 mL/min (>60); Est Glom Filt Rate - Afr Amer 99 mL/min (>60); Estimated Creatinine Clearance 89.32 ml/min; Globulin 5.9 g/dL (2.2-4.2); Glucose 387 mg/dL (74-106); Potassium 4.4 mmol/L (3.5-5.1); Sodium Level 130 mmol/L (136-145)
[2021-10-29 10:32] LABS: hCG Titer Quant., Serum < 1 mIU/mL (1-3)
--- NOTE | 2021-10-29 11:24 | CM.ED ---
Social Work Consult: No PCP Referral source: Self-referral. Met with patient in room. Introduced self and nursing home social worker role. Patient agreeable to speak with this nursing home social worker. This nursing home social worker broached topic of no PCP. Patient confirms to not have a PCP. This nursing home social worker educated patient on importance of having a PCP. Patient voiced understanding and able to engage in conversation with this nursing home social worker about importance of having a PCP. Patient open to this nursing home social worker providing patient with list of in-network PCP's that are local to patient geographical region, this nursing home social worker provided list to patient. Patient denies any further needs/concerns. No further services requested or indicated. Sophy COLINDRES, NIA-S
--- NOTE | 2021-10-29 11:54 | ED.RN ---
PT. AWARE OF NEED FOR URINE. NURSE OFFERED STRAIGHT CATH. PT. REFUSED. ATTEMPTED TO URINATE BUT WAS UNABLE TO OBTAIN SPECIMEN.
[2021-10-29 12:09] VITALS: BP 124/69; PULSE 71; RESP 15; O2SAT 98
== END 2021-10-29 12:09 | disposition home or self-care (01) ==
PROVIDERS: Emergency Provider Emergency Medicine; Visit Provider Emergency Medicine
DX: K59.00 Constipation, unspecified (principal); E11.9 Type 2 diabetes mellitus without complications; J45.909 Unspecified asthma, uncomplicated; F17.210 Nicotine dependence, cigarettes, uncomplicated; E66.9 Obesity, unspecified; Z68.34 Body mass index [BMI] 34.0-34.9, adult
CPT/HCPCS: 74022; 80053; 84702; 85025; 96361; 96374; 99283; J7030; A4216; J2405

== ENCOUNTER 2021-11-16 08:37 | Emergency (ER) | payer MEDICAID, SELFPAY ==
[2021-11-16 08:39] VITALS: BP 139/94; PULSE 102; RESP 16; TEMP 35.9; O2SAT 96; BMI 34.9
--- NOTE | 2021-11-16 08:45 | EDS_ITS ---
HPI History of Present Illness HPI Narrative: Patient presents with redness and swelling to the right foot that has been getting worse over the past 3 days. Patient states it is gradually getting worse. Patient states it is constant. Patient states she has sharp pain in her right foot when ambulating. Patient states it goes away with rest. Patient denies any paresthesias or weakness. Patient denies any trauma or injury. Patient states she has a chronic open wound on the plantar aspect of the right foot over the fifth MTP joint. Patient states this has been open for the last 2 years. Chief Complaint: Lower Extremity Injury Informant: patient Onset/Context/Timing Onset: Days (3) Context: Gradual Onset Timing: Continuous Quality of Pain: Sharp Location: Right foot Worsened by: Ambulation Relieved by: Rest Associated Symptoms Associated Symptoms: Negative for Parasthesia, Weakness and Loss of Funtion PFSH PFS Medical History Asthma Diabetes Home Medications sulfamethoxazole-trimethoprim 1 tab PO BID #20 tablet 10/24/21 [Rx Last Taken Unknown] docusate sodium [Colace] 100 mg PO DAILY #20 cap 10/29/21 [Rx Last Taken Unknown] cephalexin 500 mg PO Q6 #40 capsule 11/16/21 [Rx Last Taken Unknown] Allergy/AdvReac Type Severity Reaction Status Date / Time No Known Allergies Allergy Verified 11/16/21 08:39 Surgical History no surgical history no surgical history Social History Smoking Status: Current some day smoker tobacco type: cigarettes ROS ROS ED Constitutional Constitutional ED: Denies chills or fever(s) Eyes Eyes: Denies blurry vision or change in vision ENT ENT ED: Denies rhinorrhea or sore throat Cardiovascular Cardiovascular: Denies chest pain or palpitations Respiratory/Chest Respiratory/Chest: Denies cough or dyspnea Gastrointestinal Gastrointestinal: Reports nausea; Denies vomiting Genitourinary Genitourinary ED: Denies dysuria or hematuria Musculoskeletal Musculoskeletal: Denies back pain or neck pain Integumentary Denies abscess or rash Neurologic Neurologic: Denies headache(s) or weakness Allergic/Immunologic Allergic/Immunologic ED: Denies mouth swelling or urticaria EXAM Physical Exam Const Vital Signs: 11/16/21 08:39 Temperature 96.6 F L Temperature Source Temporal Pulse Rate 102 H Respiratory Rate 16 Blood Pressure 139/94 H Blood Pressure Mean 109 Pulse Ox 96 Oxygen Delivery Method Room Air Positive well nourished, well developed and obese General Appearance ED: well developed and NAD Nutritional Appearance: obese HEENT Reports moist mucous membranes Extremity Extremity Narrative: There is mild tenderness over the dorsum of the right foot. There is erythema and warmth noted. There is an open wound over the plantar aspect of the right foot over the fifth MTP joint. There is no active discharge or drainage. The erythema does not extend past the ankle or into the toes. There are no petechia noted. Pedal pulses are equal bilaterally. Sensation was intact to light touch in all digits. Capillary refill was less than 2 seconds in all digits. Neuro oriented x3, CN's II-XII intact bilaterally, moves all extremities and no sensory deficits noted Sensorium / Orientation: alert Motor Exam: strength 5/5 throughout Psych mental status grossly normal MDM MDM MDM Narrative Medical decision making narrative: X-ray of the right foot was obtained. There are 3 views. On my interpretation, there is no acute fracture or dislocation. There is no evidence of osteomyelitis. Radiologist also interpreted the x-rays and agrees. CBC was within normal limits. Comprehensive metabolic profile was essentially within normal limits except for an elevated glucose of 331. Anion gap was normal. Patient was given a dose of Ancef here in the emergency department. Patient was given a prescription for Keflex. Patient was given a referral for primary care physician to follow-up with in 3 to 5 days. Patient was instructed to establish care with a primary care physician for further management of her sugars. Patient was instructed to return if worse in any way. Patient understood and was agreeable with the plan. All questions were answered. Lab Data Attestation: I reviewed the patient's lab results. Labs: Laboratory Results - last 24 hr 11/16/21 11/16/21 09:05 09:05 WBC 10.9 RBC 4.48 Hgb 11.9 L Hct 36.7 L MCV 81.9 MCH 26.6 L MCHC 32.4 RDW Std Deviation 38.0 RDW Coeff of John 12.7 Plt Count 471 H MPV 9.2 Immature Gran % (Auto) 0.800 Neut % (Auto) 68.0 Lymph % (Auto) 23.5 [place] % (Auto) 6.7 Eos % (Auto) 0.6 Baso % (Auto) 0.4 Absolute Neuts (auto) 7.4 Absolute Lymphs (auto) 2.57 Nucleated RBC % 0 Sodium 133 L Potassium 4.1 Chloride 99 Carbon Dioxide 27.0 Anion Gap 7 BUN 8 Creatinine 0.75 Estim Creat Clear Calc 103.61 Est GFR (MDRD) Af Amer 117 Est GFR (MDRD) Non-Af 96 BUN/Creatinine Ratio 10.7 Glucose 331 H Calcium 8.9 Total Bilirubin 0.50 AST 6 L ALT 12 L Alkaline Phosphatase 130 H Total Protein 8.7 H Albumin 2.7 L Globulin 6.0 H Albumin/Globulin Ratio 0.4 L Radiography Diagnostic Testing: Clinical Impression(s) from Imaging Studies Foot X-Ray 11/16/21 09:10 IMPRESSION: Suspect ulcer plantar to the fifth metatarsophalangeal joint. No radiographic evidence of osteomyelitis. Electronically Signed: Paulo Smalls MD at 9:27 EDT , Discharge Plan Triage Chief Complaint: Lower Extremity Injury ED Provider: Rickey Shepard Dx/Rx/DC Orders Clinical Impression: Cellulitis of right foot, Open wound of right foot Instructions: ED Cellulitis Prescriptions: Continued cephalexin 500 MG capsule 500 mg PO Q6 Qty: 40 RF: 0 No Action sulfamethoxazole-trimethoprim [sulfamethoxazole-trimethoprim] 1 TABLET tablet 1 tab PO BID Qty: 20 RF: 0 docusate sodium [Colace] 100 mg capsule 100 mg PO DAILY Qty: 20 RF: 0 Primary Care Provider: Care Physician,No Primary Referrals: Rosetta Hancock DO [STAFF PHYSICIAN] - 3-5 Days Care Physician,No Primary [Primary Care Provider] - Disposition Disposition: Home, Self Care
[2021-11-16] MEDS: Cefazolin 1 GM/50 ML BAG IV (09:10)
--- NOTE | 2021-11-16 09:10 | RAD_ITS ---
STUDY: X-RAY - RIGHT FOOT CLINICAL: Female, 31 years old. Injury/Pain TECHNIQUE: 3 view(s) of the foot. COMPARISON: 06/19/2021 FINDINGS: Normal talus, calcaneus, and tarsal bones. Small plantar calcaneal enthesophyte. Normal visualized subtalar, talonavicular, calcaneocuboid, tarsal and tarsometatarsal articulations. Normal metatarsi. Normal metatarsophalangeal joint of the great toe. Normal tibial and fibular sesamoid bones. Normal interphalangeal joint of the great toe. Normal phalanges of the great toe. Normal second through fifth metatarsophalangeal joints. Normal interphalangeal joints and phalanges of the lesser toes. Focal radiolucency plantar to the fifth metatarsophalangeal joint consistent with an air-filled ulcer. No bone destruction or periosteal reaction to suggest osteomyelitis. RAD/Foot min 3 Views IMPRESSION: Suspect ulcer plantar to the fifth metatarsophalangeal joint. No radiographic evidence of osteomyelitis. Electronically Signed: Paulo Smalls MD at 9:27 EDT ,
[2021-11-16 09:19] LABS: Absolute Lymphocyte Count 2.57 X10^3/uL (0.83-4.51); Absolute Neutrophil Count 7.4 X10^3/uL (2.0-7.7); Basophil# 0.04 X10^3/uL; Basophil% 0.4 % (0-1); Eosinophil# 0.07 X10^3/uL; Eosinophils% 0.6 % (0-5); Hematocrit 36.7 % (37-47); Hemoglobin 11.9 g/dL (12.0-15.0); Lymphocyte # 2.57 X10^3/ul (0.83-4.51); Lymphocyte % 23.5 % (19-41); Mean Corp Hgb Conc 32.4 g/dL (32-36); Mean Corpuscular Hgb 26.6 pg (27.0-32.0); Mean Corpuscular Volume 81.9 fL (81-99); Mean Platelet Vol. 9.2 fl (6.2-12.0); Monocyte# 0.73 X10^3/uL; Monocyte% 6.7 % (0-10); NRBC Flagged by Analyzer 0 % (0-5); Neutrophil # 7.42 X10^3/uL (2.7-7.7); Platelet Count 471 K/mm3 (150-450); RBC Distribution Width CV 12.7 % (11.6-14.6); Red Blood Count 4.48 M/mm3 (4.2-5.4); White Blood Count 10.9 K/mm3 (4.4-11.0)
[2021-11-16 09:31] LABS: ALB/GLOB Ratio 0.4 RATIO (0.9-2.4); AST(SGOT) 6 U/L (15-37); Alanine Aminotransfer ALT/SGPT 12 U/L (13-56); Albumin, Serum 2.7 g/dL (3.2-5.0); Alkaline Phosphatase 130 U/L (45-117); Anion Gap 7 (5-15); BUN 8 mg/dL (7-18); BUN/Creat Ratio 10.7 RATIO (10-20); Calcium,Total 8.9 mg/dL (8.5-10.1); Chloride 99 mmol/L (98-107); Creatinine, Serum 0.75 mg/dL (0.55-1.02); EST Glomerular Filtration Rate 96 mL/min (>60); Est Glom Filt Rate - Afr Amer 117 mL/min (>60); Estimated Creatinine Clearance 103.61 ml/min; Glucose 331 mg/dL (74-106); Potassium 4.1 mmol/L (3.5-5.1); Protein, Total 8.7 g/dL (6.4-8.2); Sodium Level 133 mmol/L (136-145)
[2021-11-16 10:09] VITALS: BP 138/82; PULSE 98; TEMP 36.8
== END 2021-11-16 10:10 | disposition home or self-care (01) ==
PROVIDERS: Emergency Provider Emergency Medicine; Visit Provider Emergency Medicine
DX: L03.115 Cellulitis of right lower limb (principal); E11.65 Type 2 diabetes mellitus with hyperglycemia; S91.301A Unspecified open wound, right foot, initial encounter; F17.210 Nicotine dependence, cigarettes, uncomplicated; J45.909 Unspecified asthma, uncomplicated; X58.XXXA Exposure to other specified factors, initial encounter; Y93.9 Activity, unspecified; Y99.9 Unspecified external cause status; Y92.9 Unspecified place or not applicable
CPT/HCPCS: 73630; 80053; 85025; 96365; 99283; J7030

== ENCOUNTER 2022-01-16 14:11 | Emergency (ER) | payer MEDICAID, SELFPAY ==
[2022-01-16 14:12] VITALS: BP 126/93; PULSE 130; RESP 18; TEMP 35.9; O2SAT 98; BMI 33.9
--- NOTE | 2022-01-16 14:48 | ED.RN ---
PT REPORTS TAKES METFORMIN BUT HAS NOT HAD PCP SO HAS BEEN OFF. HAS HAD INCREASED URINATION. KNOWS SUGAR IS HIGH.
--- NOTE | 2022-01-16 14:56 | EX.ED.DYSGE1 ---
HPI History of Present Illness Chief Complaint: Other, Pain/Inj Informant: patient Narrative Narrative: Patient states that she had what was either a bug bite or pimple on the right side of her face on Wednesday. She now has some erythema and swelling. It is sore. She has no dental pain. No drainage. No fevers or chills. She does have some polyuria and polydipsia and she knows her blood sugar is high. She has a history of diabetes and was on what she thinks was metformin 500 twice daily. She has been off of it for several months. When she has checked her sugar it runs about 250-350. She has no abdominal pain nausea vomiting. Nothing makes this better or worse but nothing is yet been tried. [facility] Medical History Asthma Diabetes Home Medications cephalexin 500 mg capsule 500 mg PO Q6 #40 caps 01/16/22 [Rx Last Taken Unknown] metformin 500 mg tablet 500 mg PO BID #60 tabs 01/16/22 [Rx Last Taken Unknown] sulfamethoxazole 800 mg-trimethoprim 160 mg tablet (Bactrim DS) 1 tab PO BID #20 tabs 01/16/22 [Rx Last Taken Unknown] Allergy/AdvReac Type Severity Reaction Status Date / Time No Known Allergies Allergy Verified 01/16/22 14:14 Social History Smoking Status: Current some day smoker tobacco type: cigarettes ROS ROS ED Constitutional Constitutional ED: Denies chills, fever(s) or subjective Eyes Eyes: Reports other Details: No pain with moving eyes. ; Denies blurry vision or change in vision ENT ENT ED: Reports other; Denies rhinorrhea or sore throat Cardiovascular Cardiovascular: Reports other Details: Patient's heart rate was recorded When she came in. However she does not feel that. ; Denies chest pain, palpitations or racing heartbeat Respiratory/Chest Respiratory/Chest: Denies cough or dyspnea Gastrointestinal Gastrointestinal: Denies nausea or vomiting Genitourinary Genitourinary ED: Reports urinary frequency; Denies dysuria or hematuria Musculoskeletal Musculoskeletal: Denies arthralgias or myalgias Integumentary Reports rash Endocrine Endocrinology: Reports polydipsia and polyuria Hematologic/Lymphatic Hematologic/Lymphatic: Denies easy bleeding or easy bruising EXAM Physical Exam Const Vital Signs: 01/16/22 14:12 Temperature 96.7 F L Temperature Source Temporal Pulse Rate 130 H Respiratory Rate 18 Blood Pressure 126/93 H Blood Pressure Mean 104 Pulse Ox 98 Oxygen Delivery Method Room Air Positive well nourished and well developed General Appearance ED: well developed and NAD HEENT HEENT Narrative: Patient does have erythema along the side of her nose cheek and lower lid. There is a crusted area on the face lateral to the nose. But there is no fluctuance. There is no sign of infection in the nose. No tenderness with motion of the nose. Teeth are nontender and I see no abscess in the mouth. Eyes EOMs intact bilaterally Eyes Narrative: Mild swelling of the lower lid with erythema but no pain of motion of the eyes. No injection. Neck no lymphadenopathy and no JVD Resp normal respiratory effort and clear to auscultation bilaterally Cardio regular rate and regular rhythm Rate: other Other Details: Heart rate is currently about 95-100. GI normal to inspection, nondistended, normoactive bowel sounds Back/Spine no CVA tenderness Extremity normal to inspection Neuro oriented x3 Skin Skin Narrative: Right-sided facial rash as above. MDM MDM MDM Narrative Medical decision making narrative: I discussed options with the patient. I stated she needs to be on antibiotics. We discussed unroofing of crust or making incision most area. She does not want this done. I think that is reasonable as I do not feel any fluctuant area. I was able to convince her to at least get the BG T checked today. This is pending. Patient's glucose is 440. I went to talk with the patient. She states she just had honey barbecue chicken and sweet and raspberry tea before she walked in. I talked with her about getting this down here. We discussed the options of IV fluids and subcu insulin. She does not want this done. I offered just subcu insulin. She states when she is off her meds it will oftentimes run 600. For her 440s in bed. I will write for metformin. I will write for antibiotics. Discussed reasons to return. Lab Data Labs: Laboratory Results - last 24 hr 01/16/22 15:17 POC Glucose 440 H Discharge Plan Triage Chief Complaint: Other, Pain/Inj ED Provider: Willie Dhillon Dx/Rx/DC Orders Clinical Impression: Cellulitis of face, Hyperglycemia Instructions: ED Cellulitis, Facial, ED Diabetic Hyperglycemia Prescriptions: New cephalexin [cephalexin] 500 mg capsule 500 mg PO Q6 Qty: 40 0RF sulfamethoxazole-trimethoprim [Bactrim DS] 800-160 mg tablet 1 tab PO BID Qty: 20 0RF metformin 500 mg tablet 500 mg PO BID Qty: 60 1RF Primary Care Provider: Care Physician,No Primary Referrals: Abhinav Andrade MD [STAFF PHYSICIAN] - 3-5 Days Care Physician,No Primary [Primary Care Provider] - Disposition Disposition: Home, Self Care
[2022-01-16 15:36] LABS: Bedside Glucose 440 mg/dL (74-106)
[2022-01-16] MEDS: Smz/Tmp Ds Tablet 1 TABLET PO (15:58)
[2022-01-16] MEDS: Cephalexin 250 MG Capsule 500 MG PO (15:58)
== END 2022-01-16 16:02 | disposition home or self-care (01) ==
PROVIDERS: Emergency Provider Emergency Medicine; Visit Provider Emergency Medicine
DX: L03.211 Cellulitis of face (principal); R73.9 Hyperglycemia, unspecified; F17.210 Nicotine dependence, cigarettes, uncomplicated
CPT/HCPCS: 82962; 99283

== ENCOUNTER 2022-01-22 21:25 | Emergency (ER) | payer MEDICAID, SELFPAY ==
[2022-01-22 21:26] VITALS: BP 140/97; PULSE 132; RESP 16; TEMP 36.6; O2SAT 100; BMI 33.9
--- NOTE | 2022-01-22 22:02 | RAD_ITS ---
INDICATION: constipation EXAMINATION/TECHNIQUE: X-RAY - supine, AP XR Abdomen 1 View COMPARISON: 10/29/2021 abdominal x-rays FINDINGS: BOWEL GAS PATTERN: No abnormally distended, air-filled small bowel or stool filled colon. No air-fluid levels. FREE AIR: Not assessed on a single supine view. ORGANOMEGALY: Not seen. CALCIFICATIONS: No abnormal calcifications observed. LOWER CHEST: No acute pathology. BONES AND SOFT TISSUES: No acute pathology. RAD/Abdomen Single View IMPRESSION: Stool load is within normal limits. Electronically Signed: Yordan Chaudhry DO at 22:45 EDT ,
--- NOTE | 2022-01-22 23:39 | ED.VIS.GI ---
HPI HPI - GI History of Present Illness Chief Complaint: Constipation Informant: patient Abdominal Pain/Flank Pain Onset: Days Context: Gradual Onset Timing: Continuous Current Severity: Mild Maximum Severity: Mild Nausea/Vomiting/Emesis GI Symptom: Positive for Nausea and Vomiting Severity: Mild Diarrhea/Melena/Hematochezia GI Symptom: Negative for Diarrhea, Melena or Hematochezia Associated Symptoms Associated Symptoms: Negative for Dysuria, Frequency, Hematuria or Urgency Narrative Narrative: 31-year-old female history of asthma and diabetes currently on metformin. Currently has no primary care physician. States she has had constipation for the last 9 days. Last significant bowel movement was January 13. She has had small bowel movements since that time. No dysuria. No fever. Feels full but denies significant abdominal pain. She has had episodes of constipation before. She denies any prior abdominal surgeries. Last menstrual period was about 2 weeks ago. Prior similar symptoms: Yes Recent Illness/Hospitalization: No PFSH PFSH Medical History Asthma Diabetes Home Medications cephalexin 500 mg capsule 500 mg PO Q6 #40 caps 01/16/22 [Rx Last Taken Unknown] metformin 500 mg tablet 500 mg PO BID #60 tabs 01/16/22 [Rx Last Taken Unknown] sulfamethoxazole 800 mg-trimethoprim 160 mg tablet (Bactrim DS) 1 tab PO BID #20 tabs 01/16/22 [Rx Last Taken Unknown] Allergy/AdvReac Type Severity Reaction Status Date / Time No Known Allergies Allergy Verified 01/22/22 21:29 Social History Smoking Status: Current some day smoker tobacco type: cigarettes ROS ROS ED ROS Narrative Constipation. Review of Systems ROS Unobtainable: Denies due to encephalopathy Constitutional Constitutional ED: Denies chills ENT ENT ED: Denies ear pain Cardiovascular Cardiovascular: Denies chest pain Respiratory/Chest Respiratory/Chest: Denies cough Gastrointestinal Gastrointestinal: Reports constipation, nausea and vomiting; Denies abdominal pain, diarrhea or melena Genitourinary Genitourinary ED: Denies dysuria Musculoskeletal Musculoskeletal: Denies arthralgias Integumentary Denies abscess Neurologic Neurologic: Denies headache(s) Psychiatric Psychiatric: Denies anxiety Endocrine Endocrinology: Denies polydipsia Hematologic/Lymphatic Hematologic/Lymphatic: Denies easy bleeding Allergic/Immunologic Allergic/Immunologic ED: Denies mouth swelling EXAM Physical Exam Narrative Exam Narrative: 31-year-old female no acute distress. Vital signs stable afebrile. H EENT exam unremarkable. Moist with membranes. Lungs clear to auscultation. Heart regular rhythm rate about 100 no murmur. Abdomen soft nondistended normal bowel sounds no peritoneal signs. Really no significant tenderness. No hernia or mass. No signs of obstruction. Soft. Moving all 4 extremities. Back nontender. Neurologically awake alert. Const Vital Signs: 01/22/22 21:26 Temperature 97.8 F Temperature Source Temporal Pulse Rate 132 H Respiratory Rate 16 Blood Pressure 140/97 H Blood Pressure Mean 111 Pulse Ox 100 Oxygen Delivery Method Room Air Positive well nourished, well developed and obese; Negative for cachectic, contractures or unkempt General Appearance ED: well developed; Negative for unkempt, cachectic, contractures or pallor Nutritional Appearance: obese; Negative for cachectic HEENT Reports moist mucous membranes normocephalic and atraumatic; Negative for trauma or tenderness Eyes PERRL and EOMs intact bilaterally General Eye ED: Negative for pale conjunctiva or scleral icterus Neck no lymphadenopathy, supple and no JVD General: Negative for tenderness Carotids: Negative for other Lymph Lymphatic: Negative for other Resp normal respiratory effort and clear to auscultation bilaterally Effort and Inspection: Negative for respiratory distress or retractions Auscultation: Negative for rales, rhonchi or wheezes Cardio regular rate, regular rhythm, S1 normal heart sound, S2 normal heart sound and no murmurs Rate: Negative for bradycardia Rhythm: Negative for abnormal rhythm GI non-tender, non-distended and no masses Inspection: Negative for abdominal distention Auscultation: normoactive bowel sounds; Negative for hyperactive bowel sounds or hypoactive bowel sounds Palpation: soft; Negative for tender, guarding, rigid, hernia or mass Back/Spine no CVA tenderness General Back: Negative for CVA tenderness Cervical Spine: Negative for cervical spine tenderness Thoracic Spine / Upper Back: Negative for thoracic spinal tenderness Lumbar Spine / Lower Back: Negative for lumbar spinal tenderness Extremity full ROM General Extremety ED: Negative for edema or tenderness General Extremity: Negative for edema Neuro moves all extremities Sensorium / Orientation: alert, oriented to person, oriented to place and oriented to time; Negative for orientation impaired, confused, lethargic or stuporous Motor Exam: strength 5/5 throughout Psych mental status grossly normal and thought process normal Appearance: Negative for unkempt Attitude: No agitated Mood & Affect: Negative for depressed Skin no wounds General Skin Exam: Negative for pallor Lesions: no lesions Rashes: no rashes Trauma: Negative for abrasion Nails: Negative for discolored MDM MDM MDM Narrative Medical decision making narrative: Diabetic female with constipation. KUB was obtained shows constipation but no obstruction. Clinically there is no signs of obstruction. Blood sugar was obtained was elevated at 320. Discussed with patient she will be discharged home with magnesium citrate. Watch her blood sugars closely. Follow-up with a local primary care physician. Return if feeling worse. Lab Data Attestation: I reviewed the patient's lab results. Lab results narrative: Blood sugar 320 per nursing. Radiography Diagnostic Testing: Clinical Impression(s) from Imaging Studies KUB X-Ray 01/22/22 22:02 IMPRESSION: Stool load is within normal limits. Electronically Signed: Yordan Chaudhry DO at 22:45 EDT , KUB single view abdomen showed increased stool in the ascending, transverse and descending colon and rectum. Consistent with constipation. No signs of obstruction. Interpreted by myself and the radiologist. Discharge Plan Triage Chief Complaint: Constipation ED Provider: Fabricio Guevara Dx/Rx/DC Orders Clinical Impression: Constipation, Diabetes mellitus with hyperglycemia Instructions: ED Constipation (Adult) Prescriptions: No Action cephalexin [cephalexin] 500 mg capsule 500 mg PO Q6 Qty: 40 0RF sulfamethoxazole-trimethoprim [Bactrim DS] 800-160 mg tablet 1 tab PO BID Qty: 20 0RF metformin 500 mg tablet 500 mg PO BID Qty: 60 1RF Primary Care Provider: Care Physician,No Primary Referrals: Kerry Horn MD [STAFF PHYSICIAN] - Lester Moya MD [STAFF PHYSICIAN] - 3-5 Days if not improving Care Physician,No Primary [Primary Care Provider] - Activity Restrictions/Additional Instructions: Plenty of fluids and fruits, vegetables and fiber to prevent constipation. Tomorrow morning drink the first entire bottle of magnesium citrate. Wait 4 hours if no bowel movement then drink the second. Follow-up if not improving. Return if feeling a lot worse. Your blood sugar tonight was 320 make sure you are taking your diabetic medications and watch your blood sugar closely. Disposition Disposition: Home, Self Care
[2022-01-22 23:41] LABS: Bedside Glucose 320 mg/dL (74-106)
[2022-01-22] MEDS: Magnesium Citrate 300 ML PO (23:42)
[2022-01-22 23:45] VITALS: PULSE 91; RESP 16; O2SAT 98
== END 2022-01-22 23:46 | disposition home or self-care (01) ==
PROVIDERS: Emergency Provider Emergency Medicine; Visit Provider Emergency Medicine
DX: K59.00 Constipation, unspecified (principal); E11.65 Type 2 diabetes mellitus with hyperglycemia; F17.210 Nicotine dependence, cigarettes, uncomplicated; E66.9 Obesity, unspecified; Z79.84 Long term (current) use of oral hypoglycemic drugs
CPT/HCPCS: 74018; 82962; 99282

== ENCOUNTER 2022-01-23 16:01 | Emergency (ER) | payer MEDICAID, SELFPAY ==
[2022-01-23 16:02] VITALS: BP 140/110; PULSE 99; RESP 20; TEMP 36.4; O2SAT 100; BMI 33.9
--- NOTE | 2022-01-23 16:21 | EDS_ITS ---
HPI <MIGUEL A Ward - Last Filed: 01/23/22 18:04> History of Present Illness Chief Complaint: Abd Pain Narrative Narrative: 31-year-old female with past medical history of type 2 diabetes presents with abdominal pain and constipation. She states she has not had any full bowel movement since January 12. She took occasional MiraLAX and tried a fleets enema but only watery stool came out. Yesterday she developed vomiting abdominal pain. She was seen here yesterday and had a KUB showing constipation but no obstructive findings. She was prescribed mag citrate. She took 1/2 of the bottle this morning but then vomited. She took the other half and thinks she kept some of it down. No history of obstruction or abdominal surgeries. PFSH <MIGUEL A Ward - Last Filed: 01/23/22 18:04> [facility] Medical History Asthma Diabetes Home Medications cephalexin 500 mg capsule 500 mg PO Q6 #40 caps 01/16/22 [Rx Last Taken Unknown] metformin 500 mg tablet 500 mg PO BID #60 tabs 01/16/22 [Rx Last Taken Unknown] sulfamethoxazole 800 mg-trimethoprim 160 mg tablet (Bactrim DS) 1 tab PO BID #20 tabs 01/16/22 [Rx Last Taken Unknown] ondansetron 4 mg disintegrating tablet 4 mg PO Q6H PRN nausea and vomiting #15 tabs 01/23/22 [Rx Last Taken Unknown] Allergy/AdvReac Type Severity Reaction Status Date / Time No Known Allergies Allergy Verified 01/22/22 21:29 Social History Smoking Status: Current some day smoker tobacco type: cigarettes ROS <MIGUEL A Ward - Last Filed: 01/23/22 18:04> ROS ED ROS Narrative Constitutional: Negative for fever, chills, malaise. Eyes: Negative for visual change. ENT: Negative for sore throat, ear pain, rhinorrhea. CVS: Negative for palpitations, chest pain, syncope. Respiratory: Negative for shortness of breath, cough, orthopnea. GI: Positive for abdominal pain, nausea, vomiting, constipation. Negative for diarrhea, melena, hematochezia. : Negative for dysuria, hematuria or frequency. Neuro: Negative for headache, motor/sensory dysfunction. Skin: Negative for rash, abscess, or wound. Musc: Negative for joint pain, swelling, trauma. Heme: Negative for easy bruising, bleeding, lymphadenopathy. EXAM <MIGUEL A Ward - Last Filed: 01/23/22 18:04> Physical Exam Narrative Exam Narrative: CONST: Patient sitting in no acute distress. EYES: Normal inspection. ENT: Normal inspection, moist mucous membranes. NECK: Normal inspection. RESP: No respiratory distress, CTAB. CVS: Regular rate and rhythm, no murmur, no gallop. ABD: Soft with minimal diffuse tenderness, no guarding or rebound, nondistended, normal bowel sounds x4. DEMETRICE: No stool in the rectal vault, no masses or tenderness. SKIN: Color normal, no rash, warm, dry, intact. EXTREMITIES: Normal appearance, no pedal edema. NEURO: Oriented x4. PSYCH: Normal affect. Const Vital Signs: 01/23/22 16:02 01/23/22 18:18 Temperature 97.6 F L Temperature Source Temporal Pulse Rate 99 Respiratory Rate 20 H 18 Blood Pressure 140/110 H 122/74 H Blood Pressure Mean 120 Pulse Ox 100 Oxygen Delivery Method Room Air <Drew Hinson MD - Last Filed: 01/24/22 00:25> Physical Exam Const Vital Signs: 01/23/22 16:02 01/23/22 18:18 Temperature 97.6 F L Temperature Source Temporal Pulse Rate 99 Respiratory Rate 20 H 18 Blood Pressure 140/110 H 122/74 H Blood Pressure Mean 120 Pulse Ox 100 Oxygen Delivery Method Room Air MDM <MIGUEL A Ward - Last Filed: 01/23/22 18:04> [facility] Narrative Medical decision making narrative: Patient presents with constipation and since yesterday vomiting abdominal pain. She appears uncomfortable but nontoxic. Her abdomen is soft with minimal diffuse tenderness and no peritoneal signs. Normal bowel signs. Rectum has no stool. CBC is within normal limits. Glucose is 362 consistent with her history of diabetes, sodium 131, no other abnormalities. She has a normal anion gap. Since she had a KUB yesterday, labs and CT will be obtained to rule out obstruction. CT shows moderate stool but no obstruction and no other abnormalities. I discussed treatment with her. She does not want GoLytely because it causes abdominal cramping. She is comfortable increasing her MiraLAX use and I will provide a prescription for Zofran. She was discharged in stable condition. 1. Abdominal pain 2. Constipation Lab Data Attestation: I reviewed the patient's lab results. Labs: Laboratory Results - last 24 hr 01/23/22 01/23/22 16:26 16:26 WBC 9.8 RBC 5.18 Hgb 13.4 Hct 40.5 MCV 78.2 L MCH 25.9 L MCHC 33.1 RDW Std Deviation 38.2 RDW Coeff of John 13.5 Plt Count 470 H MPV 9.2 Immature Gran % (Auto) 0.800 Neut % (Auto) 53.8 Lymph % (Auto) 38.3 [place] % (Auto) 6.3 Eos % (Auto) 0.4 Baso % (Auto) 0.4 Absolute Neuts (auto) 5.3 Absolute Lymphs (auto) 3.74 Nucleated RBC % 0 Sodium 131 L Potassium 4.0 Chloride 97 L Carbon Dioxide 24.0 Anion Gap 10 BUN 17 Creatinine 0.98 Estim Creat Clear Calc 79.29 Est GFR (MDRD) Af Amer 85 Est GFR (MDRD) Non-Af 70 BUN/Creatinine Ratio 17.3 Glucose 362 H Calcium 9.6 Radiography Diagnostic Testing: Clinical Impression(s) from Imaging Studies Abdomen/Pelvis CT 01/23/22 17:06 IMPRESSION: 1. No evidence of acute intra-abdominal process or focal inflammation. Normal appendix. No evidence of significant stool load or obstruction. 2. Chronic appearing nodular opacities overlie the bilateral lower lobes likely sequela of previous infection given appearance, clinically correlate. Electronically Signed: Missael Moran DO at 17:30 EDT , <Drew Hinson MD - Last Filed: 01/24/22 00:25> [facility] Narrative Medical decision making narrative: Patient presents with constipation and since yesterday vomiting abdominal pain. She appears uncomfortable but nontoxic. Her abdomen is soft with minimal diffuse tenderness and no peritoneal signs. Normal bowel signs. Rectum has no stool. CBC is within normal limits. Glucose is 362 consistent with her history of diabetes, sodium 131, no other abnormalities. She has a normal anion gap. Since she had a KUB yesterday, labs and CT will be obtained to rule out obstruction. CT shows moderate stool but no obstruction and no other abnormalities. I discussed treatment with her. She does not want GoLytely because it causes abdominal cramping. She is comfortable increasing her MiraLAX use and I will provide a prescription for Zofran. She was discharged in stable condition. 1. Abdominal pain 2. Constipation ATTENDING NOTE: Dr. Hinson: The patient was seen in conjunction with the PA-C/nurse practitioner. I performed a history and physical, and agree with the management of this patient. I agree with noted documentation and plan. I discussed the plan of care and final disposition with the physician associate/nurse practitioner. Constipation. Abdominal cramping. Seen in emergency department yesterday. Afebrile. Vital signs noted. Abdomen soft. Check labs. Check CT scan. Patient states she did not want any medication that would cause more cramping. She will continue her MiraLAX. Zofran for continued nausea. As there is no obstruction, I feel she can be discharged safely home with follow-up. I do feel it would be counterintuitive to give her Bentyl for her cramping which would cause more constipation. Lab Data Labs: Laboratory Results - last 24 hr 01/23/22 01/23/22 16:26 16:26 WBC 9.8 RBC 5.18 Hgb 13.4 Hct 40.5 MCV 78.2 L MCH 25.9 L MCHC 33.1 RDW Std Deviation 38.2 RDW Coeff of John 13.5 Plt Count 470 H MPV 9.2 Immature Gran % (Auto) 0.800 Neut % (Auto) 53.8 Lymph % (Auto) 38.3 [place] % (Auto) 6.3 Eos % (Auto) 0.4 Baso % (Auto) 0.4 Absolute Neuts (auto) 5.3 Absolute Lymphs (auto) 3.74 Nucleated RBC % 0 Sodium 131 L Potassium 4.0 Chloride 97 L Carbon Dioxide 24.0 Anion Gap 10 BUN 17 Creatinine 0.98 Estim Creat Clear Calc 79.29 Est GFR (MDRD) Af Amer 85 Est GFR (MDRD) Non-Af 70 BUN/Creatinine Ratio 17.3 Glucose 362 H Calcium 9.6 Radiography Diagnostic Testing: Clinical Impression(s) from Imaging Studies Abdomen/Pelvis CT 01/23/22 17:06 IMPRESSION: 1. No evidence of acute intra-abdominal process or focal inflammation. Normal appendix. No evidence of significant stool load or obstruction. 2. Chronic appearing nodular opacities overlie the bilateral lower lobes likely sequela of previous infection given appearance, clinically correlate. Electronically Signed: Missael MoranDO at 17:30 EDT , Discharge Plan Triage Chief Complaint: Abd Pain ED Midlevel Provider: Rosetta Amaya ED Provider: Drew Hinson Dx/Rx/DC Orders Clinical Impression: Constipation Instructions: ED Constipation (Adult) Prescriptions: New ondansetron 4 mg tablet,disintegrating 4 mg PO Q6H PRN (Reason: nausea and vomiting) Qty: 15 0RF No Action cephalexin [cephalexin] 500 mg capsule 500 mg PO Q6 Qty: 40 0RF sulfamethoxazole-trimethoprim [Bactrim DS] 800-160 mg tablet 1 tab PO BID Qty: 20 0RF metformin 500 mg tablet 500 mg PO BID Qty: 60 1RF Primary Care Provider: Care Physician,No Primary Referrals: Care Physician,No Primary [Primary Care Provider] - Activity Restrictions/Additional Instructions: Take 1-2 caps of miralax per day until you are having regular bowel movements. If 2 a day is not enough you can increase even higher. Follow up with your PCP. Disposition Disposition: Home, Self Care Discharge Date/Time: 01/23/22 18:20
[2022-01-23 16:44] LABS: Absolute Lymphocyte Count 3.74 X10^3/uL (0.83-4.51); Absolute Neutrophil Count 5.3 X10^3/uL (2.0-7.7); Basophil# 0.04 X10^3/uL; Basophil% 0.4 % (0-1); Eosinophil# 0.04 X10^3/uL; Eosinophils% 0.4 % (0-5); Hematocrit 40.5 % (37-47); Hemoglobin 13.4 g/dL (12.0-15.0); Lymphocyte # 3.74 X10^3/ul (0.83-4.51); Lymphocyte % 38.3 % (19-41); Mean Corp Hgb Conc 33.1 g/dL (32-36); Mean Corpuscular Hgb 25.9 pg (27.0-32.0); Mean Corpuscular Volume 78.2 fL (81-99); Mean Platelet Vol. 9.2 fl (6.2-12.0); Monocyte# 0.62 X10^3/uL; Monocyte% 6.3 % (0-10); NRBC Flagged by Analyzer 0 % (0-5); Neutrophil # 5.25 X10^3/uL (2.7-7.7); Neutrophil % 53.8 % (47-70); Platelet Count 470 K/mm3 (150-450); RBC Distribution Width CV 13.5 % (11.6-14.6); RBC Distribution Width SD 38.2 fl (35.1-43.9); Red Blood Count 5.18 M/mm3 (4.2-5.4); White Blood Count 9.8 K/mm3 (4.4-11.0)
[2022-01-23 16:56] LABS: Anion Gap 10 (5-15); BUN 17 mg/dL (7-18); BUN/Creat Ratio 17.3 RATIO (10-20); Calcium,Total 9.6 mg/dL (8.5-10.1); Chloride 97 mmol/L (98-107); Creatinine, Serum 0.98 mg/dL (0.55-1.02); EST Glomerular Filtration Rate 70 mL/min (>60); Est Glom Filt Rate - Afr Amer 85 mL/min (>60); Estimated Creatinine Clearance 79.29 ml/min; Glucose 362 mg/dL (74-106); Sodium Level 131 mmol/L (136-145)
--- NOTE | 2022-01-23 17:06 | CT_ITS ---
STUDY: CT ABDOMEN AND PELVIS WITH CONTRAST REASON FOR EXAM: Female, 31 years old. abdominal pain, constipation RADIATION DOSAGE (If Supplied By Facility): CTDIvol = ( 14.07 ) mGy, DLP = ( 1037.54 ) mGycm TECHNIQUE: Transaxial images were obtained from the dome of the diaphragm to the symphysis pubis without oral contrast. IV 100mL [id number]-300 was administered. Sagittal and coronal images were reconstructed. Individualized dose optimization techniques were used for this CT. COMPARISON: None. FINDINGS: Mild bilateral nodular airspace disease which appears chronic within the lower segments is noted. The visualized portions of the heart are within normal limits. Normal liver. Normal gallbladder and extrahepatic biliary system. Normal spleen. Normal pancreas. Normal bilateral adrenal glands. Normal right kidney. Normal left kidney. Normal visualized stomach. Normal small intestine. Normal colon. The appendix is visualized and appears normal. Normal abdominal aorta. Normal inferior vena cava. Normal retroperitoneum. Normal urinary bladder. Normal abdominal wall. Normal osseous structures. CT/Abdomen/Pelvis W IV Cont ONLY IMPRESSION: 1. No evidence of acute intra-abdominal process or focal inflammation. Normal appendix. No evidence of significant stool load or obstruction. 2. Chronic appearing nodular opacities overlie the bilateral lower lobes likely sequela of previous infection given appearance, clinically correlate. Electronically Signed: Missael Moran DO at 17:30 EDT ,
[2022-01-23] MEDS: Morphine 4 MG/ML Syringe IV (17:36)
[2022-01-23] MEDS: Ondansetron 4 MG/2 ML Vial IV (17:36)
[2022-01-23] MEDS: 0.9% Normal Saline 1,000 ML 999 ML IV (17:38)
[2022-01-23 18:18] VITALS: BP 122/74; RESP 18
== END 2022-01-23 18:20 | disposition home or self-care (01) ==
PROVIDERS: Physician Assistant; Emergency Provider Emergency Medicine; Visit Provider Emergency Medicine
DX: K59.00 Constipation, unspecified (principal); E11.9 Type 2 diabetes mellitus without complications; F17.210 Nicotine dependence, cigarettes, uncomplicated; Z79.84 Long term (current) use of oral hypoglycemic drugs
CPT/HCPCS: 74177; 80048; 85025; 96361; 96374; 96375; 99282; J7030; Q9967; A4216; J2405

== ENCOUNTER 2022-01-26 12:29 | Emergency (ER) | payer MEDICAID, SELFPAY ==
[2022-01-26 12:31] VITALS: BP 154/108; PULSE 94; RESP 22; TEMP 36.9; O2SAT 99; BMI 32.6
[2022-01-26] MEDS: DiphenhydrAMINE 50 MG/ML Syringe 25 MG IV (12:59)
[2022-01-26] MEDS: Ketorolac 15 MG/ML Vial IV (12:59)
[2022-01-26] MEDS: Metoclopramide 10 MG/2 ML Vial IV (13:00)
[2022-01-26] MEDS: 0.9% Normal Saline 1,000 ML 1000 ML IV (13:04)
[2022-01-26 13:10] LABS: Absolute Neutrophil Count 5.6 X10^3/uL (2.0-7.7); Basophil# 0.04 X10^3/uL; Basophil% 0.4 % (0-1); Eosinophil# 0.02 X10^3/uL; Eosinophils% 0.2 % (0-5); Hematocrit 38.8 % (37-47); Hemoglobin 12.9 g/dL (12.0-15.0); Lymphocyte % 42.2 % (19-41); Mean Corp Hgb Conc 33.2 g/dL (32-36); Mean Corpuscular Hgb 25.9 pg (27.0-32.0); Mean Corpuscular Volume 77.8 fL (81-99); Mean Platelet Vol. 9.5 fl (6.2-12.0); Monocyte# 0.66 X10^3/uL; Monocyte% 5.9 % (0-10); NRBC Flagged by Analyzer 0 % (0-5); Neutrophil # 5.64 X10^3/uL (2.7-7.7); Neutrophil % 50.6 % (47-70); Platelet Count 474 K/mm3 (150-450); RBC Distribution Width CV 13.8 % (11.6-14.6); RBC Distribution Width SD 37.9 fl (35.1-43.9); Red Blood Count 4.99 M/mm3 (4.2-5.4); White Blood Count 11.1 K/mm3 (4.4-11.0)
--- NOTE | 2022-01-26 13:10 | ED.VIS.GI ---
HPI HPI - GI History of Present Illness Chief Complaint: Abd Pain Narrative Narrative: 31-year-old female with history of diabetes and constipation presenting with constipation. Patient was seen 01/22/2022 and 01/23/2022 for similar constipation. She states has been constipated for about 6 days. She had a KUB which showed constipation and she had a CT scan which shows constipation. She states that she still has nausea and vomiting and cannot hold on her food or fluids and is having trouble taking medication for constipation. She states she was admitted to [facility] the day before yesterday and was discharged yesterday. She states that they gave her nausea medication and enemas as well as oral laxatives. She had a small bowel movement and was discharged. Not had fever, chills. No urinary complaints. Patient denies abdominal surgical history. Patient states that she has Grad[employer] and its not working. [facility] Medical History Asthma Diabetes Home Medications cephalexin 500 mg capsule 500 mg PO Q6 #40 caps 01/16/22 [Rx Last Taken Unknown] metformin 500 mg tablet 500 mg PO BID #60 tabs 01/16/22 [Rx Last Taken Unknown] sulfamethoxazole 800 mg-trimethoprim 160 mg tablet (Bactrim DS) 1 tab PO BID #20 tabs 01/16/22 [Rx Last Taken Unknown] ondansetron 4 mg disintegrating tablet 4 mg PO Q6H PRN nausea and vomiting #15 tabs 01/23/22 [Rx Last Taken Unknown] metoclopramide HCl 10 mg tablet (Reglan) 10 mg PO Q6H PRN nausea and vomiting #20 tabs 01/26/22 [Rx Last Taken Unknown] peg 3350-electrolytes 236 gram-22.74 gram-6.74 gram-5.86 gram solution (Golytely) 240 ml PO Q10M PRN #4,000 mL 01/26/22 [Rx Last Taken Unknown] Allergy/AdvReac Type Severity Reaction Status Date / Time No Known Allergies Allergy Verified 01/26/22 12:31 Social History Smoking Status: Current some day smoker tobacco type: cigarettes ROS ROS ED Constitutional Constitutional ED: Denies chills or fever(s) ENT ENT ED: Denies rhinorrhea or sore throat Cardiovascular Cardiovascular: Denies chest pain Respiratory/Chest Respiratory/Chest: Denies cough or dyspnea Gastrointestinal Gastrointestinal: Reports abdominal pain, constipation, nausea and vomiting; Denies diarrhea Genitourinary Genitourinary ED: Denies dysuria or hematuria Musculoskeletal Musculoskeletal: Denies arthralgias or back pain Integumentary Denies abscess Neurologic Neurologic: Denies headache(s) or paresthesias Psychiatric Psychiatric: Denies anxiety or depression Endocrine Endocrinology: Denies polydipsia or polyphagia EXAM Physical Exam Const Vital Signs: 01/26/22 12:31 Temperature 98.4 F Temperature Source Oral Pulse Rate 94 Respiratory Rate 22 H Blood Pressure 154/108 H Blood Pressure Mean 123 Pulse Ox 99 Oxygen Delivery Method Room Air Positive well nourished General Appearance ED: NAD; Negative for pallor HEENT Reports moist mucous membranes normocephalic and atraumatic Eyes PERRL and EOMs intact bilaterally General Eye ED: Negative for pale conjunctiva or scleral icterus Resp normal respiratory effort and clear to auscultation bilaterally Cardio regular rate and regular rhythm GI GI Narrative: Generalized abdominal tenderness. Abdomen nonperitoneal. Back/Spine no CVA tenderness Neuro CN's II-XII intact bilaterally Sensorium / Orientation: alert Motor Exam: strength 5/5 throughout Psych mental status grossly normal Skin no wounds General Skin Exam: Negative for jaundice or pallor MDM MDM MDM Narrative Medical decision making narrative: IV line was established. Patient given Reglan, Benadryl, Toradol. She had 2 CAT scans in the last week which were both indicated constipation. She had blood work done as well. I will order her a soapsuds enema and try to get her bowels moving. I did hold off on narcotics as this will make her constipation worse. Patient feeling improved. She was given a soapsuds enema and had a small bowel movement. She is resting comfortably on reevaluation. CBC is unremarkable. Renal function electrolytes are normal. Glucose slightly elevated 320 without anion gap. Patient will be given Reglan for nausea which may help her bowels move and also she will be given a prescription for GoLytely. She was given follow-up with Dr. Torres. Impression: 1. constipation 2. Nausea/vomiting Lab Data Attestation: I reviewed the patient's lab results. Labs: Laboratory Results - last 24 hr 01/26/22 01/26/22 13:05 13:05 WBC 11.1 H RBC 4.99 Hgb 12.9 Hct 38.8 MCV 77.8 L MCH 25.9 L MCHC 33.2 RDW Std Deviation 37.9 RDW Coeff of John 13.8 Plt Count 474 H MPV 9.5 Immature Gran % (Auto) 0.700 Neut % (Auto) 50.6 Lymph % (Auto) 42.2 H [place] % (Auto) 5.9 Eos % (Auto) 0.2 Baso % (Auto) 0.4 Absolute Neuts (auto) 5.6 Absolute Lymphs (auto) 4.70 H Nucleated RBC % 0 Sodium 136 Potassium 3.6 Chloride 101 Carbon Dioxide 26.0 Anion Gap 9 BUN 12 Creatinine 0.92 Estim Creat Clear Calc 84.46 Est GFR (MDRD) Af Amer 92 Est GFR (MDRD) Non-Af 76 BUN/Creatinine Ratio 13.1 Glucose 320 H Calcium 9.3 Total Bilirubin 0.40 AST 7 L ALT 14 Alkaline Phosphatase 85 Total Protein 8.5 H Albumin 3.2 Globulin 5.3 H Albumin/Globulin Ratio 0.6 L Lipase 179 Discharge Plan Triage Chief Complaint: Abd Pain ED Provider: Alex Christiansen Dx/Rx/DC Orders Clinical Impression: Constipation Instructions: ED Constipation (Adult) Prescriptions: New peg 3350-electrolytes [Golytely] 236-22.74-6.74 -5.86 gram recon soln 240 ml PO Q10M PRN Qty: 4000 0RF Rx Instructions: until fecal effluent is clear metoclopramide HCl [Reglan] 10 mg tablet 10 mg PO Q6H PRN (Reason: nausea and vomiting) Qty: 20 0RF No Action cephalexin [cephalexin] 500 mg capsule 500 mg PO Q6 Qty: 40 0RF sulfamethoxazole-trimethoprim [Bactrim DS] 800-160 mg tablet 1 tab PO BID Qty: 20 0RF metformin 500 mg tablet 500 mg PO BID Qty: 60 1RF ondansetron 4 mg tablet,disintegrating 4 mg PO Q6H PRN (Reason: nausea and vomiting) Qty: 15 0RF Primary Care Provider: Care Physician,No Primary Referrals: Friend,Venkatesh, DO [STAFF PHYSICIAN] - As soon as possible Care Physician,No Primary [Primary Care Provider] - Disposition Disposition: Home, Self Care
[2022-01-26 13:26] LABS: ALB/GLOB Ratio 0.6 RATIO (0.9-2.4); AST(SGOT) 7 U/L (15-37); Alanine Aminotransfer ALT/SGPT 14 U/L (13-56); Albumin, Serum 3.2 g/dL (3.2-5.0); Alkaline Phosphatase 85 U/L (45-117); Anion Gap 9 (5-15); BUN 12 mg/dL (7-18); BUN/Creat Ratio 13.1 RATIO (10-20); Calcium,Total 9.3 mg/dL (8.5-10.1); Chloride 101 mmol/L (98-107); Creatinine, Serum 0.92 mg/dL (0.55-1.02); EST Glomerular Filtration Rate 76 mL/min (>60); Est Glom Filt Rate - Afr Amer 92 mL/min (>60); Estimated Creatinine Clearance 84.46 ml/min; Globulin 5.3 g/dL (2.2-4.2); Glucose 320 mg/dL (74-106); Lipase 179 U/L (73-393); Potassium 3.6 mmol/L (3.5-5.1); Protein, Total 8.5 g/dL (6.4-8.2); Sodium Level 136 mmol/L (136-145)
[2022-01-26] MEDS: Ondansetron 4 MG/2 ML Vial IV (16:20)
== END 2022-01-26 16:31 | disposition home or self-care (01) ==
PROVIDERS: Emergency Provider Student in an Organized Health Care Education/Training Program; Visit Provider Student in an Organized Health Care Education/Training Program
DX: K59.00 Constipation, unspecified (principal); E11.9 Type 2 diabetes mellitus without complications; F17.210 Nicotine dependence, cigarettes, uncomplicated; J45.909 Unspecified asthma, uncomplicated; Z79.899 Other long term (current) drug therapy; Z79.84 Long term (current) use of oral hypoglycemic drugs
CPT/HCPCS: 80053; 83690; 85025; 96361; 96374; 96375; 99285; J7030; A4216; J2405

== ENCOUNTER → 2022-01-30 | Outpatient (CLI) | payer MEDICAID, SELFPAY ==
[2022-01-30 15:54] LABS: Absolute Lymphocyte Count 5.16 X10^3/uL (0.83-4.51); Absolute Neutrophil Count 8.8 X10^3/uL (2.0-7.7); Basophil# 0.05 X10^3/uL; Basophil% 0.3 % (0-1); Eosinophil# 0.07 X10^3/uL; Eosinophils% 0.5 % (0-5); Hematocrit 42.8 % (37-47); Hemoglobin 13.9 g/dL (12.0-15.0); Lymphocyte # 5.16 X10^3/ul (0.83-4.51); Lymphocyte % 33.7 % (19-41); Mean Corp Hgb Conc 32.5 g/dL (32-36); Mean Corpuscular Hgb 26.1 pg (27.0-32.0); Mean Corpuscular Volume 80.3 fL (81-99); Mean Platelet Vol. 9.5 fl (6.2-12.0); Monocyte% 7.2 % (0-10); NRBC Flagged by Analyzer 0 % (0-5); Neutrophil # 8.79 X10^3/uL (2.7-7.7); Neutrophil % 57.5 % (47-70); POSITIVE DIFFERENTIAL YES; Platelet Count 484 K/mm3 (150-450); Red Blood Count 5.33 M/mm3 (4.2-5.4); White Blood Count 15.3 K/mm3 (4.4-11.0)
[2022-01-30 16:05] LABS: Differential Indicated SCAN CRITERIA MET
[2022-01-30 16:46] LABS: Amylase 19 U/L (25-115); LDH 153 U/L (84-246); Lipase 150 U/L (73-393); Thyroid Stim Hormone (TSH) 2.21 uIU/mL (0.358-3.74)
[2022-01-30 16:48] LABS: Hemoglobin A1c 11.4 % (3.8-5.6)
[2022-01-30 16:49] LABS: Differential Comment SCANNED; Erythrocyte Sedimentation Rate 81 mm/hr (0-30)
[2022-02-02 08:06] LABS: Vitamin B12 318 pg/mL (211-911)
[2022-02-02 13:07] LABS: Anti-Centromere B Ab <0.2 AI (0.0-0.9); Anti-Chromatin <0.2 AI (0.0-0.9); Anti-Jo <0.2 AI (0.0-0.9); Anti-Scleroderma-70 AB <0.2 AI (0.0-0.9); RNP Ab <0.2 AI (0.0-0.9); SJOGREN'S Anti-SS-A test < 0.2 AI (0.0-0.9); SJOGREN'S Anti-SS-B test < 0.2 AI (0.0-0.9); Smith Ab <0.2 AI (0.0-0.9)
[2022-02-02 16:07] LABS: Anti-dsDNA Ab <1 IU/mL (0-9)
[2022-02-02 16:09] LABS: Endomysial Antibody IgA Negative (Negative)
[2022-02-02 16:25] LABS: Immunoglobulin A 467 mg/dL (87-352); t-Transglutaminase IgA <2 U/mL (0-3)
[2022-02-04 16:08] LABS: Albumin 3.6 g/dL (2.9-4.4); Alpha-1-Globulins 0.2 g/dL (0.0-0.4); Alpha-2-Globulins 1.6 g/dL (0.4-1.0); Gamma Globulin 1.9 g/dL (0.4-1.8); Immunoglobulin A 478 mg/dL (87-352); Immunoglobulin E 119 IU/mL (6-495); Immunoglobulin G 1630 mg/dL (586-1602); Immunoglobulin M 294 mg/dL (26-217); PROEL- TOTAL PROTEIN 8.4 g/dL (6.0-8.5)
[2022-02-04 17:36] LABS: Perinuclear Ab (P-ANCA) <1:20 titer (Neg:<1:20)
== END | disposition home or self-care (01) ==
LOC: LAB 14:39
PROVIDERS: Visit Provider Internal Medicine Gastroenterology
DX: K59.00 Constipation, unspecified (principal); R10.9 Unspecified abdominal pain
CPT/HCPCS: 36415; 82150; 82607; 82746; 82784; 82785; 83036; 83516; 83615; 83690; 84165; 84443; 85025; 85652; 86140; 86225; 86235; 86255; 86256; 86334

== ENCOUNTER 2022-02-01 12:41 | Emergency (ER) | payer MEDICAID, SELFPAY ==
[2022-02-01 12:42] VITALS: BP 124/79; PULSE 88; RESP 15; TEMP 35.7; O2SAT 98; BMI 32.3
--- NOTE | 2022-02-01 13:10 | ED.VIS.GI ---
HPI HPI - GI History of Present Illness Chief Complaint: Abd Pain Detail of Chief Complaint: Nausea vomiting x10 days Informant: patient Narrative Narrative: Patient presents to the emergency department complaint of nausea and vomiting for last 10 days. Patient states anytime she tries to eat or drink she throws up. Patient states that she is lost about 12 pounds in the last 2 weeks. Patient describes intermittent abdominal cramping. Patient states that she is also had constipation issues and has been seen in the ER for this several times. Patient denies any fevers. She denies urinary symptoms. She is a diabetic and is on metformin. No prior abdominal surgeries. Prior similar symptoms: Yes PFSH PFSH Medical History (Updated 02/01/22 @ 17:[address] Javy Doss, ) Asthma Constipation Diabetes Hypertension Home Medications metformin 500 mg tablet 500 mg PO BID #60 tabs 01/16/22 [Rx Last Taken Unknown] docusate sodium 100 mg capsule (Dulcolax Stool Softener (docusate)) 100 mg PO BID #60 caps 01/30/22 [Rx Last Taken Unknown] hyoscyamine sulfate 0.125 mg sublingual tablet 0.125 mg PO TID PRN dyspepsia 30 days #90 tabs 01/30/22 [Rx Last Taken Unknown] pantoprazole 40 mg tablet,delayed release 40 mg PO BID #60 tabs 01/30/22 [Rx Last Taken Unknown] pioglitazone 30 mg tablet 30 mg PO DAILY #30 tabs 01/30/22 [Rx Last Taken Unknown] prochlorperazine 25 mg rectal suppository 25 mg MS HS 1 month #30 ea 01/30/22 [Rx Last Taken Unknown] prochlorperazine maleate 10 mg tablet 10 mg PO TID PRN nausea and vomiting 30 days #90 tabs 01/30/22 [Rx Last Taken Unknown] scopolamine base 1 mg over 3 days transdermal patch 1 patch transdermal Q72H 1 month #10 ea 01/30/22 [Rx Last Taken Unknown] metoclopramide HCl 10 mg tablet (Reglan) 10 mg PO Q6H PRN nausea and vomiting #10 tabs 02/01/22 [Rx Last Taken Unknown] ondansetron 4 mg disintegrating tablet tab 02/01/22 [History Last Taken Unknown] ondansetron HCl 4 mg tablet tab 02/01/22 [History Last Taken Unknown] peg 3350-electrolytes 236 gram-22.74 gram-6.74 gram-5.86 gram solution (GaviLyte-G) ml 02/01/22 [History Last Taken Unknown] polyethylene glycol 3350 17 gram oral powder packet ea 02/01/22 [History Last Taken Unknown] Allergy/AdvReac Type Severity Reaction Status Date / Time No Known Allergies Allergy Verified 02/01/22 12:42 Family History (Updated 01/30/22 @ 13:47 by Radha Maradiaga) Other Bleeding disorder Cancer Hypertension Social History (Updated 01/30/22 @ 13:47 by Radha Maradiaga) Smoking Status: Current some day smoker tobacco type: cigarettes alcohol intake: never substance use type: does not use what type of physical activity do you participate in: none ROS ROS ED Review of Systems ROS Unobtainable: other Constitutional Constitutional ED: Reports lethargy; Denies chills, fever(s), sweats or weight loss Eyes Eyes: Denies blurry vision, change in vision or diplopia ENT ENT ED: Denies rhinorrhea or sore throat Cardiovascular Cardiovascular: Reports chest pain and racing heartbeat; Denies orthopnea Respiratory/Chest Respiratory/Chest: Reports dyspnea and dyspnea on exertion; Denies cough, orthopnea or sputum Gastrointestinal Gastrointestinal: Reports abdominal pain, constipation, nausea and vomiting; Denies diarrhea Genitourinary Genitourinary ED: Denies dysuria, hematuria or urinary frequency Musculoskeletal Musculoskeletal: Denies arthralgias, back pain, myalgias or neck pain Integumentary Denies abscess, Abrasions or rash Neurologic Neurologic: Denies headache(s) or weakness Psychiatric Psychiatric: Denies anxiety, depression or suicidal thoughts Endocrine Endocrinology: Denies polydipsia, polyphagia or polyuria Hematologic/Lymphatic Hematologic/Lymphatic: Denies easy bleeding, easy bruising or lymphadenopathy Allergic/Immunologic Allergic/Immunologic ED: Denies mouth swelling, tongue swelling or urticaria EXAM Physical Exam Const Vital Signs: 02/01/22 12:42 02/01/22 15:00 Temperature 96.3 F L Temperature Source Temporal Pulse Rate 88 76 Respiratory Rate 15 Blood Pressure 124/79 H 120/70 Blood Pressure Mean 94 86 Pulse Ox 98 Oxygen Delivery Method Room Air Positive well nourished and well developed General Appearance ED: well developed and NAD HEENT Reports TM's clear and moist mucous membranes normocephalic and atraumatic; Negative for trauma or tenderness Tympanic Membrane ED: Yes TM's clear Eyes PERRL and EOMs intact bilaterally General Eye ED: Negative for pale conjunctiva or scleral icterus Neck no lymphadenopathy, supple and no JVD General: Negative for tenderness Chest Wall inspection of chest normal and palpation of chest normal Chest: Negative for tenderness Resp normal respiratory effort and clear to auscultation bilaterally Effort and Inspection: Negative for respiratory distress or pain with movement Auscultation: Negative for rhonchi, wheezes or diminished lung sounds Cardio regular rate, regular rhythm, S1 normal heart sound, S2 normal heart sound and no murmurs Peripheral Pulses: pulses 2+ throughout GI normal to inspection, nondistended, normoactive bowel sounds, soft to palpation, non-distended and no masses GI Narrative: Abdomen is soft. She has diffuse tenderness on palpation. There is no rebound, rigidity, or peritoneal signs. Back/Spine no CVA tenderness and no thoracic nor lumbar tenderness Extremity normal to inspection General Extremety ED: Negative for edema General Extremity: Negative for edema Neuro oriented x3, CN's II-XII intact bilaterally, no sensory deficits noted and gait normal Sensorium / Orientation: awake, alert, oriented to person, oriented to place and oriented to time Motor Exam: strength 5/5 throughout and strength abnormal Psych mental status grossly normal Skin no rashes or lesions noted and no wounds MDM MDM MDM Narrative Medical decision making narrative: IV line established on arrival. Patient was given Zofran initially for nausea. Patient continued to complain of pain and was given Bentyl IM and she continued to have pain so she received a milligram of hydromorphone IV. Patient was given a second dose of Zofran. Lab work-up was normal. She did have a slight elevated lactate of 2.5. CT scan of the abdomen pelvis with IV and p.o. contrast was essentially unremarkable other than she had some findings in the lungs that could be consistent with pneumonitis versus pneumonia. Patient denies cough however or fever or pneumonialike symptoms. Patient has seen GI and was there 2 days ago. Plan is to have patient have an upper scope in April. At this point etiology of her abdominal pain is unclear. There are no surgical or emergent findings noted. 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 She is to return if fever, persistent vomiting, dehydration, or condition worsen anyway. Lab Data Attestation: I reviewed the patient's lab results. Labs: Laboratory Results - last 24 hr 02/01/22 02/01/22 02/01/22 13:05 13:05 13:05 WBC 10.1 RBC 4.45 Hgb 11.7 L Hct 35.7 L MCV 80.2 L MCH 26.3 L MCHC 32.8 RDW Std Deviation 39.5 RDW Coeff of John 13.7 Plt Count 368 MPV 9.7 Immature Gran % (Auto) 0.900 Neut % (Auto) 54.6 Lymph % (Auto) 35.9 [place] % (Auto) 7.8 Eos % (Auto) 0.5 Baso % (Auto) 0.3 Absolute Neuts (auto) 5.5 Absolute Lymphs (auto) 3.62 Nucleated RBC % 0 Sodium 131 L Potassium 3.2 L Chloride 98 Carbon Dioxide 24.0 Anion Gap 9 BUN 7 Creatinine 1.02 Estim Creat Clear Calc 75.50 Est GFR (MDRD) Af Amer 82 Est GFR (MDRD) Non-Af 68 BUN/Creatinine Ratio 6.9 L Glucose 334 H Lactic Acid 2.5 H* Calcium 8.7 Total Bilirubin 0.40 AST 8 L ALT 12 L Alkaline Phosphatase 79 Total Protein 7.2 Albumin 2.7 L Globulin 4.5 H Albumin/Globulin Ratio 0.6 L Lipase 154 Serum , Qual Urine Color Urine Clarity Urine pH Ur Specific [place] Urine Protein Urine Glucose (UA) Urine Ketones Urine Occult Blood Urine Nitrite Urine Bilirubin Urine Urobilinogen Ur Leukocyte Esterase Urine RBC Urine WBC Ur Squamous Epith Cells Urine Bacteria Urine Mucus 02/01/22 02/01/22 13:05 13:50 WBC RBC Hgb Hct MCV MCH MCHC RDW Std Deviation RDW Coeff of John Plt Count MPV Immature Gran % (Auto) Neut % (Auto) Lymph % (Auto) [place] % (Auto) Eos % (Auto) Baso % (Auto) Absolute Neuts (auto) Absolute Lymphs (auto) Nucleated RBC % Sodium Potassium Chloride Carbon Dioxide Anion Gap BUN Creatinine Estim Creat Clear Calc Est GFR (MDRD) Af Amer Est GFR (MDRD) Non-Af BUN/Creatinine Ratio Glucose Lactic Acid Calcium Total Bilirubin AST ALT Alkaline Phosphatase Total Protein Albumin Globulin Albumin/Globulin Ratio Lipase Serum , Qual NEGATIVE Urine Color Yellow Urine Clarity Clear Urine pH 5.0 Ur Specific [place] 1.020 Urine Protein 15 H Urine Glucose (UA) 1000 H Urine Ketones Negative Urine Occult Blood 50 H Urine Nitrite Negative Urine Bilirubin Negative Urine Urobilinogen Normal Ur Leukocyte Esterase 25 H Urine RBC 0-5 SEEN Urine WBC 0-5 SEEN Ur Squamous Epith Cells 0-5 SEEN Urine Bacteria 0 SEEN Urine Mucus 0 SEEN Radiography Diagnostic Testing: Clinical Impression(s) from Imaging Studies Abdomen/Pelvis CT 02/01/22 13:53 IMPRESSION: (NOT LISTED IN ORDER OF SIGNIFICANCE) There are bilateral tree in bud infiltrates in the periphery of the lung. This may suggest a pneumonia, pneumoconioses, or pneumonitis. Other findings as above. Electronically Signed: Jamshid Pruitt MD at 16:48 EDT Reading Location ID and State: [facility] / [place] , Service support , Discharge Plan Triage Chief Complaint: Abd Pain ED Provider: Javy Doss Dx/Rx/DC Orders Clinical Impression: Abdominal pain Instructions: ED Abdominal Pain Unkn Cause Fem Prescriptions: New metoclopramide HCl [Reglan] 10 mg tablet 10 mg PO Q6H PRN (Reason: nausea and vomiting) Qty: 10 0RF No Action scopolamine base 1 mg over 3 days patch 3 day 1 patch transdermal Q72H 30 Days Qty: 10 0RF prochlorperazine 25 mg suppository 25 mg MS HS 30 Days Qty: 30 0RF pioglitazone 30 mg tablet 30 mg PO DAILY Qty: 30 1RF prochlorperazine maleate 10 mg tablet 10 mg PO TID PRN (Reason: nausea and vomiting) 30 Days Qty: 90 0RF pantoprazole 40 mg tablet,delayed release (DR/EC) 40 mg PO BID Qty: 60 1RF docusate sodium [Dulcolax Stool Softener (dss)] 100 mg capsule 100 mg PO BID Qty: 60 0RF hyoscyamine sulfate 0.125 mg tablet, sublingual 0.125 mg PO TID PRN (Reason: dyspepsia) 30 Days Qty: 90 1RF metformin 500 mg tablet 500 mg PO BID Qty: 60 1RF polyethylene glycol 3350 17 gram powder in packet Label Comments: USE 1 PACKET BY MOUTH EVERY DAY NEEDED DAILY FOR CONSTIPATION ondansetron HCl 4 mg tablet Label Comments: TAKE 1 TABLET BY MOUTH EVERY 8 HOURS NEEDED FOR NAUSEA AND VOMITING ondansetron 4 mg tablet,disintegrating Label Comments: TAKE 1 TABLET BY MOUTH EVERY 6 HOURS NEEDED FOR NAUSEA AND VOMITING peg 3350-electrolytes [GaviLyte-G] 236-22.74-6.74 -5.86 gram recon soln Label Comments: TAKE 240 ML EVERY TEN MINUTES NEEDED UNTIL FECAL EFFLUENT IS BRANT R Primary Care Provider: Care Physician,No Primary Referrals: Friend,Venkatesh, [STAFF PHYSICIAN] - 3-5 Days Care Physician,No Primary [Primary Care Provider] - Disposition Disposition: Home, Self Care
[2022-02-01] MEDS: Ondansetron 4 MG/2 ML Vial IV ×3 (13:14→16:55)
[2022-02-01 13:22] LABS: Absolute Lymphocyte Count 3.62 X10^3/uL (0.83-4.51); Absolute Neutrophil Count 5.5 X10^3/uL (2.0-7.7); Basophil# 0.03 X10^3/uL; Basophil% 0.3 % (0-1); Eosinophil# 0.05 X10^3/uL; Eosinophils% 0.5 % (0-5); Hematocrit 35.7 % (37-47); Hemoglobin 11.7 g/dL (12.0-15.0); Lymphocyte # 3.62 X10^3/ul (0.83-4.51); Lymphocyte % 35.9 % (19-41); Mean Corp Hgb Conc 32.8 g/dL (32-36); Mean Corpuscular Hgb 26.3 pg (27.0-32.0); Mean Corpuscular Volume 80.2 fL (81-99); Mean Platelet Vol. 9.7 fl (6.2-12.0); Monocyte# 0.79 X10^3/uL; Monocyte% 7.8 % (0-10); NRBC Flagged by Analyzer 0 % (0-5); Neutrophil # 5.49 X10^3/uL (2.7-7.7); Neutrophil % 54.6 % (47-70); Platelet Count 368 K/mm3 (150-450); RBC Distribution Width CV 13.7 % (11.6-14.6); RBC Distribution Width SD 39.5 fl (35.1-43.9); Red Blood Count 4.45 M/mm3 (4.2-5.4); White Blood Count 10.1 K/mm3 (4.4-11.0)
[2022-02-01] MEDS: Dicyclomine 20 MG/2 ML Vial IM (13:22)
[2022-02-01] MEDS: 0.9% Normal Saline 1,000 ML 125 ML IV (13:22)
[2022-02-01 13:31] LABS: Internal QC Validated? YES +Cl - CLEAR BKGD; Pregnancy, Serum, hCG Quali. NEGATIVE Negative
[2022-02-01 13:38] LABS: ALB/GLOB Ratio 0.6 RATIO (0.9-2.4); AST(SGOT) 8 U/L (15-37); Alanine Aminotransfer ALT/SGPT 12 U/L (13-56); Albumin, Serum 2.7 g/dL (3.2-5.0); Alkaline Phosphatase 79 U/L (45-117); Anion Gap 9 (5-15); BUN 7 mg/dL (7-18); BUN/Creat Ratio 6.9 RATIO (10-20); Calcium,Total 8.7 mg/dL (8.5-10.1); Chloride 98 mmol/L (98-107); Creatinine, Serum 1.02 mg/dL (0.55-1.02); EST Glomerular Filtration Rate 68 mL/min (>60); Est Glom Filt Rate - Afr Amer 82 mL/min (>60); Globulin 4.5 g/dL (2.2-4.2); Glucose 334 mg/dL (74-106); Lipase 154 U/L (73-393); Potassium 3.2 mmol/L (3.5-5.1); Protein, Total 7.2 g/dL (6.4-8.2); Sodium Level 131 mmol/L (136-145)
[2022-02-01 13:47] LABS: Lactic Acid 2.5 mmol/L (0.4-1.9)
--- NOTE | 2022-02-01 13:53 | CT_ITS ---
STUDY: CT Abdomen And Pelvis W/ Contrast Injection 02/01/2022 4:45 PM REASON FOR EXAM: Female, 32 years old. ABDOMINAL PAIN Technologist Notes N/V X 1 WK, ABD PAIN, ELEV BS, ASTHMA, DB, HTN TECHNIQUE: Transaxial images were obtained with oral contrast, and with Oral and amp; IV Gastrografin and amp; 100mL Isovue-300 intravenous contrast. Individualized dose optimization techniques were used for this CT. COMPARISON: None. FINDINGS: There are bilateral tree in bud infiltrates in the periphery of the lung. This may suggest a pneumonia, pneumoconioses, or pneumonitis. The visualized portions of the heart are within normal limits. Unremarkable liver. Unremarkable gallbladder and extrahepatic biliary system. Unremarkable spleen. Unremarkable pancreas. Unremarkable bilateral adrenal glands. No acute findings of the right kidney. No acute findings of the left kidney. Unremarkable visualized stomach. Unremarkable small intestine. Unremarkable colon. The appendix is visualized and appears unremarkable. There are no acute findings of the abdominal aorta. Unremarkable inferior vena cava. Subcentimeter mesenteric lymph nodes. Unremarkable urinary bladder. There are physiologic follicles of both ovaries. This appears stable. Unremarkable abdominal wall. Unremarkable osseous structures. CT/Abdomen/Pelvis WITH Contrast IMPRESSION: (NOT LISTED IN ORDER OF SIGNIFICANCE) There are bilateral tree in bud infiltrates in the periphery of the lung. This may suggest a pneumonia, pneumoconioses, or pneumonitis. Other findings as above. Electronically Signed: Jamshid Pruitt MD at 16:48 EDT ,
[2022-02-01 13:58] LABS: Bacteria 0 SEEN /hpf (None Seen); Color, Urine Yellow (Yellow); Glucose, Dipstick 1000 mg/dl (Normal); Ketone-Dipstick Negative (Negative); Leukocyte Esterase-Dipstick 25 /ul (Negative); Mucous, Urine 0 SEEN /hpf (<or=2+); Nitrite-Dipstick Negative (Negative); Occult Blood-Urine 50 /ul (Negative); Protein-Dipstick 15 mg/dl (Negative); Urine Bilirubin Dipstick Negative (Negative); Urine Clarity Clear (Clear); Urine Urobilinogen Normal (Normal)
[2022-02-01] MEDS: HYDROmorphone 1 MG/ML Syringe IV (13:59)
[2022-02-01 14:04] LABS: Red Blood Cells-Urine 0-5 SEEN /hpf (0-5); Squamous Epithelial Cells - UA 0-5 SEEN /hpf (5-10); White Blood Cells 0-5 SEEN /hpf (0-5)
[2022-02-01 15:00] VITALS: BP 120/70; PULSE 76
[2022-02-01 17:17] LABS: Reflex Lactate? Y
[2022-02-01 17:18] VITALS: BP 145/100; PULSE 66; RESP 18; O2SAT 97
== END 2022-02-01 17:20 | disposition home or self-care (01) ==
PROVIDERS: Emergency Provider Emergency Medicine; Visit Provider Emergency Medicine
DX: R10.9 Unspecified abdominal pain (principal); E11.9 Type 2 diabetes mellitus without complications; R11.2 Nausea with vomiting, unspecified; I10 Essential (primary) hypertension; Z79.84 Long term (current) use of oral hypoglycemic drugs; Z79.899 Other long term (current) drug therapy
CPT/HCPCS: 74177; 80053; 81001; 83605; 83690; 84703; 85025; 96361; 96372; 96374; 96375; 99285; J7030; Q9967; A4216; J2405

== ENCOUNTER 2022-04-05 11:49 | Emergency (ER) | payer MEDICAID, SELFPAY ==
[2022-04-05 11:50] VITALS: BP 133/82; PULSE 124; RESP 17; TEMP 36.7; O2SAT 97; BMI 34.4
[2022-04-05 11:53] VITALS: BP 133/82; PULSE 124; RESP 17; TEMP 36.7; O2SAT 97
--- NOTE | 2022-04-05 12:01 | EDS_ITS ---
HPI History of Present Illness Chief Complaint: Cellulitis Detail of Chief Complaint: Redness and swelling to the right foot Informant: patient Narrative Narrative: Patient presents emergency department complaint of redness and swelling to the right foot. 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 Patient states sometimes her foot will get infected and it does typically respond to antibiotics. Patient denies any fevers. The swelling really seem to worsen yesterday. She is noticed increased redness. Patient denies any trauma to the foot. She does not see the wound center or a cradle placer. Prior similar symptoms: Yes [facility] Medical History (Updated 04/05/22 @ 13:[address] Javy Doss, DO) Asthma Constipation Diabetes Hypertension Home Medications metformin 500 mg tablet 500 mg PO BID #60 tabs 01/16/22 [Rx Last Taken Unknown] docusate sodium 100 mg capsule (Dulcolax Stool Softener (docusate)) 100 mg PO BID #60 caps 01/30/22 [Rx Last Taken Unknown] hyoscyamine sulfate 0.125 mg sublingual tablet 0.125 mg PO TID PRN dyspepsia 30 days #90 tabs 01/30/22 [Rx Last Taken Unknown] pantoprazole 40 mg tablet,delayed release 40 mg PO BID #60 tabs 01/30/22 [Rx Last Taken Unknown] pioglitazone 30 mg tablet 30 mg PO DAILY #30 tabs 01/30/22 [Rx Last Taken Unknown] metoclopramide HCl 10 mg tablet (Reglan) 10 mg PO Q6H PRN nausea and vomiting #10 tabs 02/01/22 [Rx Last Taken Unknown] ondansetron 4 mg disintegrating tablet tab 02/01/22 [History Last Taken Unknown] ondansetron HCl 4 mg tablet tab 02/01/22 [History Last Taken Unknown] peg 3350-electrolytes 236 gram-22.74 gram-6.74 gram-5.86 gram solution (GaviLyte-G) ml 02/01/22 [History Last Taken Unknown] polyethylene glycol 3350 17 gram oral powder packet ea 02/01/22 [History Last Taken Unknown] cephalexin 500 mg capsule 500 mg PO Q6 #40 CAPSULES 04/05/22 [Rx Last Taken Unknown] sulfamethoxazole 800 mg-trimethoprim 160 mg tablet 1 tab PO BID #20 TABLETS 04/05/22 [Rx Last Taken Unknown] Allergy/AdvReac Type Severity Reaction Status Date / Time No Known Allergies Allergy Verified 04/05/22 11:49 Family History Other Bleeding disorder Cancer Hypertension Social History (Updated 01/30/22 @ 13:47 by Radha Maradiaga) Smoking Status: Current some day smoker tobacco type: cigarettes alcohol intake: never substance use type: does not use what type of physical activity do you participate in: none ROS ROS ED Review of Systems ROS Unobtainable: other Constitutional Constitutional ED: Reports lethargy; Denies chills, fever(s), sweats or weight loss Eyes Eyes: Denies blurry vision, change in vision or diplopia ENT ENT ED: Denies rhinorrhea or sore throat Cardiovascular Cardiovascular: Denies chest pain, orthopnea or racing heartbeat Respiratory/Chest Respiratory/Chest: Denies cough, dyspnea, dyspnea on exertion, orthopnea or sputum Gastrointestinal Gastrointestinal: Denies abdominal pain, diarrhea, nausea or vomiting Genitourinary Genitourinary ED: Denies dysuria, hematuria or urinary frequency Musculoskeletal Musculoskeletal: Reports other Details: Right foot redness and swelling ; Denies arthralgias, back pain, myalgias or neck pain Integumentary Denies abscess, Abrasions or rash Neurologic Neurologic: Denies headache(s) or weakness Psychiatric Psychiatric: Denies anxiety, depression or suicidal thoughts Endocrine Endocrinology: Denies polydipsia, polyphagia or polyuria Hematologic/Lymphatic Hematologic/Lymphatic: Denies easy bleeding, easy bruising or lymphadenopathy Allergic/Immunologic Allergic/Immunologic ED: Denies mouth swelling, tongue swelling or urticaria EXAM Physical Exam Const Vital Signs: 04/05/22 11:50 04/05/22 11:53 Temperature 98.0 F 98.0 F Temperature Source Temporal Temporal Pulse Rate 124 H 124 H Respiratory Rate 17 17 Blood Pressure 133/82 H 133/82 H Blood Pressure Mean 99 99 Pulse Ox 97 97 Oxygen Delivery Method Room Air Room Air Positive well nourished and well developed General Appearance ED: well developed and NAD HEENT Reports TM's clear and moist mucous membranes normocephalic and atraumatic; Negative for trauma or tenderness Tympanic Membrane ED: Yes TM's clear Eyes PERRL and EOMs intact bilaterally General Eye ED: Negative for pale conjunctiva or scleral icterus Neck no lymphadenopathy, supple and no JVD General: Negative for tenderness Chest Wall inspection of chest normal and palpation of chest normal Chest: Negative for tenderness Resp normal respiratory effort and clear to auscultation bilaterally Effort and Inspection: Negative for respiratory distress or pain with movement Auscultation: Negative for rhonchi, wheezes or diminished lung sounds Cardio regular rate, regular rhythm, S1 normal heart sound, S2 normal heart sound and no murmurs Peripheral Pulses: pulses 2+ throughout GI normal to inspection, nondistended, normoactive bowel sounds, soft to palpation, non-tender, non-distended and no masses Back/Spine no CVA tenderness and no thoracic nor lumbar tenderness Extremity Extremity Narrative: Right foot-patient has diffuse edema especially to the distal portion of the foot. Over the area of the plantar aspect of the fifth MTP joint there is a chronic appearing wound with excoriation. There is no drainage noted. There are some crepitus palpated in the foot with some mild diffuse tenderness on exam. She is neurovascular intact. Patient has some faint erythema to the dorsum of the foot and the plantar aspect of the foot. General Extremety ED: Negative for edema General Extremity: Negative for edema Neuro oriented x3, CN's II-XII intact bilaterally, no sensory deficits noted and gait normal Sensorium / Orientation: awake, alert, oriented to person, oriented to place and oriented to time Motor Exam: strength 5/5 throughout and strength abnormal Psych mental status grossly normal Skin no rashes or lesions noted and no wounds MDM MDM MDM Narrative Medical decision making narrative: IV line established on arrival. Patient was treated with Unasyn as well as vancomycin IV. She has an elevated white count of 17.5. Chemistries were unremarkable. Her lactate was elevated 2.5. Blood cultures also were ordered. Patient had x-rays of her right foot which was essentially unremarkable. There is no evidence of osteomyelitis. At this point I am concerned about a deep space foot infection and a diabetic patient. I recommended admission for IV antibiotics and podiatry consult. Patient is refusing admission and states that she normally gets better with p.o. antibiotics. She understands that she risks severe infection and loss of her foot and possibly sepsis and . Patient has capacity and understands my concerns but states that she has an appointment tomorrow that if she does not go to it she is worried that her electricity will be turned off. Patient will return with worsening symptoms. Patient will sign out AGAINST MEDICAL ADVICE. Lab Data Attestation: I reviewed the patient's lab results. Labs: Laboratory Results - last 24 hr 04/05/22 04/05/22 04/05/22 12:45 12:45 12:45 WBC 17.5 H RBC 4.50 Hgb 12.7 Hct 37.0 MCV 82.2 MCH 28.2 MCHC 34.3 RDW Std Deviation 40.1 RDW Coeff of John 13.5 Plt Count 444 MPV 9.7 Immature Gran % (Auto) 0.800 Neut % (Auto) 78.3 H Lymph % (Auto) 14.2 L [place] % (Auto) 6.3 Eos % (Auto) 0.2 Baso % (Auto) 0.2 Absolute Neuts (auto) 13.7 H Absolute Lymphs (auto) 2.49 Nucleated RBC % 0 Sodium 132 L Potassium 4.0 Chloride 93 L Carbon Dioxide 28.0 Anion Gap 11 BUN 7 Creatinine 0.83 Estim Creat Clear Calc 92.78 Est GFR (MDRD) Af Amer 104 Est GFR (MDRD) Non-Af 86 BUN/Creatinine Ratio 8.5 L Glucose 389 H Lactic Acid 2.5 H* Calcium 9.2 Radiography Diagnostic Testing: Clinical Impression(s) from Imaging Studies Foot X-Ray 04/05/22 13:05 IMPRESSION: Calcaneal spur, otherwise unremarkable right foot Electronically Signed: Demarcus Walker MD at 13:35 EDT Reading Location ID and State: [address] [place] [address] , Service support , Three-view x-rays of the right foot obtained interpreted by myself as no acute fractures or evidence of osteomyelitis or gas gangrene. Radiology in agreement. Discharge Plan Triage Chief Complaint: Cellulitis ED Provider: Javy Doss Dx/Rx/DC Orders Clinical Impression: Cellulitis of foot, right, Diabetic foot infection Instructions: Diabetes Foot Infections Tx, ED Cellulitis Prescriptions: New sulfamethoxazole-trimethoprim [sulfamethoxazole-trimethoprim] 1 TABLET tablet 1 tab PO BID Qty: 20 0RF cephalexin [cephalexin] 500 MG capsule 500 mg PO Q6 Qty: 40 0RF No Action pioglitazone 30 mg tablet 30 mg PO DAILY Qty: 30 1RF pantoprazole 40 mg tablet,delayed release (DR/EC) 40 mg PO BID Qty: 60 1RF docusate sodium [Dulcolax Stool Softener (dss)] 100 mg capsule 100 mg PO BID Qty: 60 0RF hyoscyamine sulfate 0.125 mg tablet, sublingual 0.125 mg PO TID PRN (Reason: dyspepsia) 30 Days Qty: 90 1RF metformin 500 mg tablet 500 mg PO BID Qty: 60 1RF polyethylene glycol 3350 17 gram powder in packet Label Comments: USE 1 PACKET BY MOUTH EVERY DAY NEEDED DAILY FOR CONSTIPATION ondansetron HCl 4 mg tablet Label Comments: TAKE 1 TABLET BY MOUTH EVERY 8 HOURS NEEDED FOR NAUSEA AND VOMITING ondansetron 4 mg tablet,disintegrating Label Comments: TAKE 1 TABLET BY MOUTH EVERY 6 HOURS NEEDED FOR NAUSEA AND VOMITING peg 3350-electrolytes [GaviLyte-G] 236-22.74-6.74 -5.86 gram recon soln Label Comments: TAKE 240 ML EVERY TEN MINUTES NEEDED UNTIL FECAL EFFLUENT IS BARNT R metoclopramide HCl [Reglan] 10 mg tablet 10 mg PO Q6H PRN (Reason: nausea and vomiting) Qty: 10 0RF Primary Care Provider: Care Physician,No Primary Referrals: Andres Matias DPM [Med Staff - Active Staff] - 1 Day for another exam Care Physician,No Primary [Primary Care Provider] - Disposition Disposition: Against Medical Advice
[2022-04-05 13:00] LABS: Absolute Lymphocyte Count 2.49 X10^3/uL (0.83-4.51); Absolute Neutrophil Count 13.7 X10^3/uL (2.0-7.7); Basophil# 0.04 X10^3/uL; Basophil% 0.2 % (0-1); Eosinophil# 0.04 X10^3/uL; Eosinophils% 0.2 % (0-5); Hemoglobin 12.7 g/dL (12.0-15.0); Lymphocyte # 2.49 X10^3/ul (0.83-4.51); Lymphocyte % 14.2 % (19-41); Mean Corp Hgb Conc 34.3 g/dL (32-36); Mean Corpuscular Hgb 28.2 pg (27.0-32.0); Mean Corpuscular Volume 82.2 fL (81-99); Mean Platelet Vol. 9.7 fl (6.2-12.0); Monocyte% 6.3 % (0-10); NRBC Flagged by Analyzer 0 % (0-5); Neutrophil # 13.72 X10^3/uL (2.7-7.7); Neutrophil % 78.3 % (47-70); Platelet Count 444 K/mm3 (150-450); RBC Distribution Width CV 13.5 % (11.6-14.6); RBC Distribution Width SD 40.1 fl (35.1-43.9); White Blood Count 17.5 K/mm3 (4.4-11.0)
--- NOTE | 2022-04-05 13:05 | RAD_ITS ---
STUDY: X-RAY - RIGHT FOOT CLINICAL: Female, 32 years old. Infection, swelling TECHNIQUE: 3 view(s) of the foot. COMPARISON: None. FINDINGS: Normal talus and tarsal bones. Calcaneal spur Normal visualized subtalar, talonavicular, calcaneocuboid, tarsal and tarsometatarsal articulations. Normal metatarsi. Normal metatarsophalangeal joint of the great toe. Normal tibial and fibular sesamoid bones. Normal interphalangeal joint of the great toe. Normal phalanges of the great toe. Normal second through fifth metatarsophalangeal joints. Normal interphalangeal joints and phalanges of the lesser toes. The soft tissue structures are unremarkable. RAD/Foot min 3 Views IMPRESSION: Calcaneal spur, otherwise unremarkable right foot Electronically Signed: Demarcus Walker MD at 13:35 EDT ,
[2022-04-05 13:13] LABS: Anion Gap 11 (5-15); BUN 7 mg/dL (7-18); BUN/Creat Ratio 8.5 RATIO (10-20); Calcium,Total 9.2 mg/dL (8.5-10.1); Chloride 93 mmol/L (98-107); Creatinine, Serum 0.83 mg/dL (0.55-1.02); EST Glomerular Filtration Rate 86 mL/min (>60); Est Glom Filt Rate - Afr Amer 104 mL/min (>60); Estimated Creatinine Clearance 92.78 ml/min; Glucose 389 mg/dL (74-106); Sodium Level 132 mmol/L (136-145)
[2022-04-05 13:27] LABS: Lactic Acid 2.5 mmol/L (0.4-1.9)
[2022-04-05 16:06] VITALS: BP 127/95; PULSE 103; RESP 16; O2SAT 98
[2022-04-05 16:56] LABS: Reflex Lactate? Y
== END 2022-04-05 17:28 | disposition left against medical advice (07) ==
PROVIDERS: Emergency Provider Emergency Medicine; Visit Provider Emergency Medicine
DX: E11.628 Type 2 diabetes mellitus with other skin complications (principal); L03.115 Cellulitis of right lower limb; I10 Essential (primary) hypertension; J45.909 Unspecified asthma, uncomplicated; F17.210 Nicotine dependence, cigarettes, uncomplicated; M79.89 Other specified soft tissue disorders; Z79.84 Long term (current) use of oral hypoglycemic drugs
CPT/HCPCS: 73630; 80048; 83605; 85025; 87040; 96365; 96366; 96367; 99283; J0295; J7040; J7050; A4216

== ENCOUNTER 2022-04-06 12:44 | Inpatient (IN) | payer MEDICAID, SELFPAY ==
[2022-04-06] VITALS (15 sets, daily range): BP systolic 105–144; BP diastolic 54–92; PULSE 104–129; RESP 16–24; TEMP 36.9–38.7; O2SAT 92–100; BMI 34.7; BMI 34.3
--- NOTE | 2022-04-06 14:00 | ED.VIS.LOWEX ---
HPI History of Present Illness HPI Narrative: Right foot diabetic foot infection. Seen yesterday in emergency department left AMA. Chief Complaint: Wound Informant: patient Onset/Context/Timing Onset: Days Context: Gradual Onset Timing: Continuous Quality of Pain: Aching Current Severity: Mild Maximum Severity: Moderate Narrative Narrative: 32-year-old female history of diabetes and chronic right foot wound that gets intermittently infected she has had this in the last 4 years. She is actually seen in the emergency department yesterday they want admit her but she could not stay so they wrote her for antibiotics but she has been unable to get those filled as of yet. They did give her IV antibiotics yesterday and reportedly did blood cultures. Says today she feels worse its more red and swollen. She has had chills with nausea and vomiting. No documented fever. Prior similar symptoms: Yes Recent Illness/Hospitalization: No PFSH PFSH Medical History Asthma Constipation Diabetes Hypertension Home Medications metformin 500 mg tablet 500 mg PO BID #60 tabs 01/16/22 [Rx Last Taken 04/05/22] ondansetron HCl 4 mg tablet 4 mg PO Q8H PRN PRN Nausea 02/01/22 [History Last Taken 3 Months Ago ~01/04/22] cephalexin 500 mg capsule 500 mg PO Q6 #40 CAPSULES 04/05/22 [Rx Last Taken 04/06/22] sulfamethoxazole 800 mg-trimethoprim 160 mg tablet 1 tab PO BID #20 TABLETS 04/05/22 [Rx Last Taken 04/06/22] albuterol sulfate 90 mcg/actuation aerosol inhaler (Ventolin HFA) inh inhalation Q4H 04/06/22 [History Last Taken 04/06/22] docusate sodium 100 mg capsule (Dulcolax Stool Softener (docusate)) 100 mg PO BID PRN stool 04/06/22 [History Last Taken 3 Months Ago ~01/04/22] polyethylene glycol 3350 17 gram oral powder packet 17 g PO DAILY PRN stool 04/06/22 [History Last Taken 2 Months Ago ~02/03/22] sennosides 8.6 mg-docusate sodium 50 mg tablet (Stimulant Laxative Plus) 1 - 2 tab PO DAILY PRN stool 04/06/22 [History Last Taken 1 Month Ago ~03/06/22] Allergy/AdvReac Type Severity Reaction Status Date / Time No Known Allergies Allergy Verified 04/06/22 12:45 Family History Other Bleeding disorder Cancer Hypertension Social History Smoking Status: Current some day smoker tobacco type: cigarettes alcohol intake: never substance use type: does not use what type of physical activity do you participate in: none ROS ROS ED ROS Narrative Chills. Right foot redness and swelling. Nausea and vomiting. Review of Systems ROS Unobtainable: Denies due to encephalopathy Constitutional Constitutional ED: Reports chills; Denies fever(s) Eyes Eyes: Denies blurry vision ENT ENT ED: Denies ear pain Cardiovascular Cardiovascular: Denies chest pain or palpitations Respiratory/Chest Respiratory/Chest: Denies cough or dyspnea Gastrointestinal Gastrointestinal: Denies abdominal pain Genitourinary Genitourinary ED: Denies dysuria or hematuria Musculoskeletal Musculoskeletal: Denies arthralgias Integumentary Denies abscess or Abrasions Neurologic Neurologic: Denies headache(s) Psychiatric Psychiatric: Denies anxiety or depression Endocrine Endocrinology: Denies polydipsia Hematologic/Lymphatic Hematologic/Lymphatic: Denies easy bleeding Allergic/Immunologic Allergic/Immunologic ED: Denies mouth swelling or tongue swelling EXAM Physical Exam Narrative Exam Narrative: 32-year-old female vital signs stable afebrile. She is tachycardic at 129. H EENT exam unremarkable. Neck nontender. Lungs good auscultation bilaterally. Heart tachycardic rate about 130 no murmur. Chest wall nontender. Abdomen soft nontender. Moving all 4 extremities. Her right foot is red and significantly swollen consistent with a cellulitis. There is a wound on the bottom of her right foot on the pad of the fifth or small toe metatarsal. There is no pus or crepitance. She does have some redness in her right calf. There is no inguinal lymphadenopathy. Dorsi plantarflexion intact. Neurologically she is awake and alert with no focal motor deficits. Const Vital Signs: 04/06/22 12:45 04/06/22 13:04 04/06/22 14:17 Temperature 98.9 F 98.9 F Temperature Source Oral Oral Pulse Rate 129 H 129 H 118 H Respiratory Rate 16 16 21 H Blood Pressure 144/92 H 144/92 H 134/82 H Blood Pressure Mean 109 109 99 Pulse Ox 100 100 100 Oxygen Delivery Method Room Air Room Air Room Air 04/06/22 14:30 Temperature 99.9 F H Temperature Source Oral Pulse Rate 118 H Respiratory Rate 24 H Blood Pressure 134/82 H Blood Pressure Mean 99 Pulse Ox 98 Oxygen Delivery Method Room Air Positive well nourished, well developed and obese; Negative for cachectic, contractures or unkempt General Appearance ED: well developed and NAD; Negative for unkempt, cachectic or contractures Nutritional Appearance: obese; Negative for cachectic HEENT Reports moist mucous membranes; Denies other normocephalic and atraumatic; Negative for trauma, tenderness or other Eyes PERRL General Eye ED: Negative for other Neck full ROM and supple Thyroid: Negative for tender Chest Wall inspection of chest normal and palpation of chest normal Chest: Negative for other Resp normal respiratory effort, no retractions and clear to auscultation bilaterally Effort and Inspection: Negative for pain with movement Auscultation: Negative for rales Percussion: Negative for other Cardio regular rhythm, S1 normal heart sound, S2 normal heart sound and no murmurs; Negative for regular rate Rate: tachycardic GI non-tender, non-distended and no masses Inspection: Negative for abdominal distention Auscultation: normoactive bowel sounds Palpation: soft; Negative for tender Back/Spine no CVA tenderness General Back: Negative for CVA tenderness or swelling Cervical Spine: Negative for cervical spine tenderness Thoracic Spine / Upper Back: Negative for thoracic spinal tenderness Lumbar Spine / Lower Back: Negative for lumbar spinal tenderness Extremity normal to inspection and full ROM Extremity Narrative: Except right calcine furnace tender, swollen and cellulitic. There is a wound on the bottom of the right foot. Appears to be some redness in the right lower leg. There is no inguinal lymphadenopathy or tenderness. Dorsi and plantar flexion intact. No tender or swollen ankle or knee or hip joint. This appears to be an obvious infection of her right foot. General Extremety ED: Yes edema; Negative for cyanosis General Extremity: edema; Negative for cyanosis Neuro oriented x3 and moves all extremities Sensorium / Orientation: alert, oriented to person, oriented to place and oriented to time; Negative for orientation impaired or confused Motor Exam: strength 5/5 throughout Psych mental status grossly normal Appearance: Negative for unkempt Speech: No other Mood & Affect: Negative for anxious Skin no wounds Lesions: no lesions Rashes: no rashes Trauma: Negative for abrasion MDM MDM MDM Narrative Medical decision making narrative: Diabetic foot infection. Labs to be obtained. X-ray of the right foot to rule out tear. Started on IV Unasyn. Zofran for nausea. Repeat exam unchanged. Patient standing up in the hallway. I spoke to the hospitalist Mar evaluated for admission. Lab Data Attestation: I reviewed the patient's lab results. Lab results narrative: CBC shows a white count 22.4. H&H 12 and 36. Platelets 495. Electrolytes show sodium 130 gap 11. BUN and creatinine of 6 and 1. Glucose 396. C-reactive protein elevated 321. Acetone negative. X-ray shows soft tissue swelling with a small amount of gas that may be from the wound versus the infection. Sed rate elevated at 118. Labs: Laboratory Results - last 24 hr 04/06/22 04/06/22 04/06/22 13:55 13:55 13:55 WBC 22.4 H RBC 4.48 Hgb 12.0 Hct 36.8 L MCV 82.1 MCH 26.8 L MCHC 32.6 RDW Std Deviation 39.4 RDW Coeff of John 13.2 Plt Count 495 H MPV 9.5 Immature Gran % (Auto) 1.200 H Neut % (Auto) 80.1 H Lymph % (Auto) 11.4 L [place] % (Auto) 7.1 Eos % (Auto) 0.0 Baso % (Auto) 0.2 Absolute Neuts (auto) 18.0 H Absolute Lymphs (auto) 2.55 Nucleated RBC % 0 Diff Path Review November foll ESR 118 H Sodium 130 L Potassium 3.8 Chloride 94 L Carbon Dioxide 25.0 Anion Gap 11 BUN 6 L Creatinine 1.01 Estim Creat Clear Calc 76.25 Est GFR (MDRD) Af Amer 83 Est GFR (MDRD) Non-Af 68 BUN/Creatinine Ratio 5.9 L Glucose 396 H Calcium 9.7 C-React Prot Ext Range 321.00 H Acetone Level NEGATIVE Radiography Diagnostic Testing: Clinical Impression(s) from Imaging Studies Foot X-Ray 04/06/22 14:05 IMPRESSION: Soft tissue swelling. Small amount of gas is seen in the soft tissues along the plantar surface. Electronically Signed: Bernard Sadler MD at 14:21 EDT , Right foot x-ray, 3 views, interpreted by myself shows Discharge Plan Triage Chief Complaint: Wound ED Provider: Fabricio Guevara Dx/Rx/DC Orders Clinical Impression: Diabetic foot infection, Cellulitis of foot, right, Leukocytosis Prescriptions: No Action metformin 500 mg tablet 500 mg PO BID Qty: 60 1RF ondansetron HCl 4 mg tablet 4 mg PO Q8H PRN PRN (Reason: Nausea) Label Comments: TAKE 1 TABLET BY MOUTH EVERY 8 HOURS NEEDED FOR NAUSEA AND VOMITING sulfamethoxazole-trimethoprim [sulfamethoxazole-trimethoprim] 1 TABLET tablet 1 tab PO BID Qty: 20 0RF cephalexin [cephalexin] 500 MG capsule 500 mg PO Q6 Qty: 40 0RF polyethylene glycol 3350 17 gram powder in packet 17 g PO DAILY PRN (Reason: stool) Label Comments: USE 1 PACKET BY MOUTH EVERY DAY NEEDED DAILY FOR CONSTIPATION sennosides-docusate sodium [Stimulant Laxative Plus] 8.6-50 mg tablet 1 - 2 tab PO DAILY PRN (Reason: stool) Label Comments: TAKE 1 TO 2 TABLETS BY MOUTH EVERY 12 HOURS albuterol sulfate [Ventolin HFA] 90 mcg/actuation HFA aerosol inhaler INHALATION Q4H docusate sodium [Dulcolax Stool Softener (dss)] 100 mg capsule 100 mg PO BID PRN (Reason: stool) Primary Care Provider: Care Physician,No Primary Referrals: Care Physician,No Primary [Primary Care Provider] - Disposition Disposition: Acute Care Hospital [facility]
--- NOTE | 2022-04-06 14:05 | RAD_ITS ---
STUDY: X-RAY - RIGHT FOOT CLINICAL: Female, 32 years old. Diabetic foot infection TECHNIQUE: 3 view(s) of the foot. COMPARISON: Comparison is made with prior study dated 04/05/2022. FINDINGS: There is a plantar calcaneal spur. Normal visualized subtalar, talonavicular, calcaneocuboid, tarsal and tarsometatarsal articulations. Normal metatarsi. Normal metatarsophalangeal joint of the great toe. Normal tibial and fibular sesamoid bones. Normal interphalangeal joint of the great toe. Normal phalanges of the great toe. Normal second through fifth metatarsophalangeal joints. Normal interphalangeal joints and phalanges of the lesser toes. Diffuse soft tissue swelling. Small amount of gas is seen along the plantar surface. No bony destruction is seen. RAD/Foot min 3 Views IMPRESSION: Soft tissue swelling. Small amount of gas is seen in the soft tissues along the plantar surface. Electronically Signed: Bernard Sadler MD at 14:21 EDT ,
[2022-04-06 14:15] LABS: Absolute Lymphocyte Count 2.55 X10^3/uL (0.83-4.51); Basophil# 0.05 X10^3/uL; Basophil% 0.2 % (0-1); Hematocrit 36.8 % (37-47); Lymphocyte # 2.55 X10^3/ul (0.83-4.51); Lymphocyte % 11.4 % (19-41); Mean Corp Hgb Conc 32.6 g/dL (32-36); Mean Corpuscular Hgb 26.8 pg (27.0-32.0); Mean Corpuscular Volume 82.1 fL (81-99); Mean Platelet Vol. 9.5 fl (6.2-12.0); Monocyte# 1.59 X10^3/uL; Monocyte% 7.1 % (0-10); NRBC Flagged by Analyzer 0 % (0-5); Neutrophil # 17.98 X10^3/uL (2.7-7.7); Neutrophil % 80.1 % (47-70); POSITIVE DIFFERENTIAL YES; Platelet Count 495 K/mm3 (150-450); RBC Distribution Width CV 13.2 % (11.6-14.6); RBC Distribution Width SD 39.4 fl (35.1-43.9); Red Blood Count 4.48 M/mm3 (4.2-5.4); White Blood Count 22.4 K/mm3 (4.4-11.0)
[2022-04-06 14:17] LABS: Differential Indicated SCAN CRITERIA MET
[2022-04-06] MEDS: 0.9% Normal Saline 1,000 ML 999 ML IV (14:22)
[2022-04-06 14:27] LABS: Erythrocyte Sedimentation Rate 118 mm/hr (0-30)
[2022-04-06 15:01] LABS: Anion Gap 11 (5-15); BUN 6 mg/dL (7-18); BUN/Creat Ratio 5.9 RATIO (10-20); Calcium,Total 9.7 mg/dL (8.5-10.1); Chloride 94 mmol/L (98-107); Creatinine, Serum 1.01 mg/dL (0.55-1.02); EST Glomerular Filtration Rate 68 mL/min (>60); Est Glom Filt Rate - Afr Amer 83 mL/min (>60); Estimated Creatinine Clearance 76.25 ml/min; Glucose 396 mg/dL (74-106); Potassium 3.8 mmol/L (3.5-5.1); Sodium Level 130 mmol/L (136-145)
--- NOTE | 2022-04-06 15:53 | PCM.HP.STD ---
HPI - General General Date of Service: 04/06/22 Chief Complaint: Right foot cellulitis HPI Narrative SHOLA PATTON, is a 32 F who presents presents with infection of her right foot over the past couple days. Patient has a chronic ulcer over her fifth MTP that is been present there for years. Patient is a known type II diabetic, takes only metformin and does not check her blood sugar presents with worsening redness over her right foot and swelling. Was seen in the emergency room on the and had an x-ray that was unremarkable. Today, her foot got more swollen. Patient had an x-ray today that showed some small mount of air on the plantar aspect of her foot. Patient received Unasyn in the emergency room and the hospital service was contacted for admission. [facility] Medical History (Updated 04/06/22 @ 15:[address] Rickey Gifofrd, ) Asthma Constipation Diabetes Hypertension Home Medications metformin 500 mg tablet 500 mg PO BID #60 tabs 01/16/22 [Rx Last Taken 04/05/22] ondansetron HCl 4 mg tablet 4 mg PO Q8H PRN PRN Nausea 02/01/22 [History Last Taken 3 Months Ago ~01/04/22] cephalexin 500 mg capsule 500 mg PO Q6 #40 CAPSULES 04/05/22 [Rx Last Taken 04/06/22] sulfamethoxazole 800 mg-trimethoprim 160 mg tablet 1 tab PO BID #20 TABLETS 04/05/22 [Rx Last Taken 04/06/22] albuterol sulfate 90 mcg/actuation aerosol inhaler (Ventolin HFA) inh inhalation Q4H 04/06/22 [History Last Taken 04/06/22] docusate sodium 100 mg capsule (Dulcolax Stool Softener (docusate)) 100 mg PO BID PRN stool 04/06/22 [History Last Taken 3 Months Ago ~01/04/22] polyethylene glycol 3350 17 gram oral powder packet 17 g PO DAILY PRN stool 04/06/22 [History Last Taken 2 Months Ago ~02/03/22] sennosides 8.6 mg-docusate sodium 50 mg tablet (Stimulant Laxative Plus) 1 - 2 tab PO DAILY PRN stool 04/06/22 [History Last Taken 1 Month Ago ~03/06/22] Allergy/AdvReac Type Severity Reaction Status Date / Time No Known Allergies Allergy Verified 04/06/22 12:45 Family History (Updated 04/06/22 @ 15:[address] Rickey Gifford DO) Other Bleeding disorder Cancer Diabetes Hypertension Social History Smoking Status: Current some day smoker tobacco type: cigarettes alcohol intake: never substance use type: does not use what type of physical activity do you participate in: none ROS ROS Narrative Chronic dyspnea on exertion. Has not eaten over the past couple days. Nauseated. All review of systems were negative except as mentioned above in the history of present illness and the other review of systems. Vital Signs Vital Signs Vital Signs: 04/06/22 12:45 04/06/22 13:04 04/06/22 14:17 Temperature 37.2 C 37.2 C Temperature Source Oral Oral Pulse Rate 129 H 129 H 118 H Respiratory Rate 16 16 21 H Blood Pressure 144/92 H 144/92 H 134/82 H Blood Pressure Mean 109 109 99 Pulse Ox 100 100 100 Oxygen Delivery Method Room Air Room Air Room Air 04/06/22 14:30 04/06/22 15:39 Temperature 37.7 C H 37.8 C H Temperature Source Oral Oral Pulse Rate 118 H 114 H Respiratory Rate 24 H 20 H Blood Pressure 134/82 H 136/79 H Blood Pressure Mean 99 98 Pulse Ox 98 98 Oxygen Delivery Method Room Air Room Air Weight Weight: 97.5 kg Body Mass Index (BMI) 34.7 Physical Exam Const alert and no apparent distress HEENT normocephalic, head/scalp atraumatic, hearing grossly normal bilaterally and moist oral mucous membranes Resp normal respiratory effort, no retractions, no use of accessory muscles and clear to auscultation bilaterally Cardio regular rate, regular rhythm, S1 normal heart sound and S2 normal heart sound GI normal to inspection, nondistended, normoactive bowel sounds, soft to palpation, non-tender and non-distended Extremity Extremity Narrative: Swelling of the right foot. Ulceration over the fifth MTP on the right foot without any surrounding erythema. Fluctuance the the dorsum of her right foot with some slight tender to palpation. Does have a patch of erythema on her right han that is not confluent with the other erythema on her foot. Neuro oriented x3 Psych affect normal Results Lab / Micro Data Attestation: I reviewed the patient's lab results. Result Diagrams: 04/06/22 13:55 04/06/22 13:55 Labs: Laboratory Results - last 24 hr 04/06/22 13:55: WBC 22.4 H, RBC 4.48, Hgb 12.0, Hct 36.8 L, MCV 82.1, MCH 26.8 L, MCHC 32.6, RDW Std Deviation 39.4, RDW Coeff of John 13.2, Plt Count 495 H, MPV 9.5, Immature Gran % (Auto) 1.200 H, Neut % (Auto) 80.1 H, Lymph % (Auto) 11.4 L, [place] % (Auto) 7.1, Eos % (Auto) 0.0, Baso % (Auto) 0.2, Absolute Neuts (auto) 18.0 H, Absolute Lymphs (auto) 2.55, Nucleated RBC % 0, Diff Path Review November, ESR 118 H 04/06/22 13:55: Sodium 130 L, Potassium 3.8, Chloride 94 L, Carbon Dioxide 25.0, Anion Gap 11, BUN 6 L, Creatinine 1.01, Estim Creat Clear Calc 76.25, Est GFR (MDRD) Af Amer 83, Est GFR (MDRD) Non-Af 68, BUN/Creatinine Ratio 5.9 L, Glucose 396 H, Calcium 9.7, C-React Prot Ext Range 321.00 H 04/06/22 13:55: Acetone Level NEGATIVE Radiology Impression Foot X-Ray 04/06/22 14:05 IMPRESSION: Soft tissue swelling. Small amount of gas is seen in the soft tissues along the plantar surface. Electronically Signed: Bernard Sadler MD at 14:21 EDT , Assessment & Plan Assessment/Plan (1) Diabetic foot infection: PLAN: Very concerning for a deeper infection rather than a superficial cellulitis. No clinical evidence of necrotizing fasciitis. Some air was noted on the plantar aspect of her right foot. But the more worrisome is on the dorsal aspect of the foot. Is very concerned the patient may have osteomyelitis with her ESR being 118 and her CRP being 312. Plan: Antibiotics with vancomycin and piperacillin/tazobactam MRI of the foot Consult podiatry as I do anticipate the patient requiring surgical intervention. 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 Her current blood sugar is 396 Plan: Start insulin glargine at 20 and adjust accordingly Sliding scale insulin Check an A1c which I do expect to be very elevated May benefit from outpatient endocrinology follow-up PLAN: Plan VTE prophylaxis: High risk. Enoxaparin. Disposition: To be determined. Really depends on what needs to be done for her while she is in the hospital. Patient will need a primary care provider upon discharge. Charges/Coding Visit Charges Inpatient E&M: 20218 Init Hosp L3
--- NOTE | 2022-04-06 16:10 | DEB_PTH ---
PATIENT: SHOLA PATTON LOC: [facility]3 U#:[id number] AGE/SX: 32/F ROOM: [facility]314 RE04/06/[address]: Dr. Marc Nick MD : 1990 BED: 1 DIS: 04/09/2022 SPEC #: [id number] RECD: 04/07/22 11:52 STATUS: LISA BLACKMON #: [id number] NEISHA: 04/06/22 16:[address]: Andres Matias DEPT: SURGICAL PATHOLOGY RECD BY: Sierra Melchor ENTERED: 04/07/22 12:30 SP TYPE: OLEG TISS OTHR DR: DO Dr. Andres Hubbard, DPM MD Dr. Charles Garcia MD No Primary Care Phys Tissues: Soft tissues, NOS Procedures: Surgery Specimen Level IV Comments: @ Ordering doctor for SUIII edited from to @ by EZ at 04/07/22 1403 @ Submitting doctor edited from to @ by RGOOD at 04/07/22 1403 HEADER OPERATION: Incision, drainage abscess PRE-OP DIAGNOSIS: Right foot cellulitis TISSUE SUBMITTED: Debrided ulcer of right foot MICROSCOPIC DIAGNOSIS Skin and tissue of right foot ulcer, biopsy: Ulceration with acute and chronic inflammation and abscess formation. LAWANDA:enoc 04/08/2022 MICROSCOPIC DESCRIPTION Slides are reviewed. GROSS DESCRIPTION Received in fixative is one container labeled with the patient's name and designated debrided ulcer of right foot. The specimen consists of multiple pieces of skin with underlying tissue that in aggregate measure 7 x 4.5 x 2 cm. [employer] sections are submitted in two cassettes. / TERESITA:enoc 04/07/2022 TC:2 CPT: 67192
[2022-04-06 17:10] LABS: Bedside Glucose 379 mg/dL (74-106)
[2022-04-06] MEDS: Insulin Lispro 100 UNIT/ML INSULN.PEN SC (17:21)
[2022-04-06] MEDS: 0.9% Saline Lock 10 ML Syringe IV (17:23)
--- NOTE | 2022-04-06 17:23 | RAD_ITS ---
INDICATION: infection EXAMINATION/TECHNIQUE: X-RAY - RIGHT XR Tibia/Fibula 2 Views COMPARISON: None. FINDINGS: SOFT TISSUES: Right ankle and lower leg soft tissue swelling. No radiopaque foreign body or soft tissue gas detected. BONES/JOINTS: No acute fracture or subluxation. Normal alignment. Preservation of the joint space(s). No suspicious osseous lesion observed. RAD/Tibia & Fibula 2 Views IMPRESSION: Soft tissue swelling right lower leg and ankle. No radiographic evidence of osteomyelitis. Electronically Signed: Pranay Vega MD at 0:37 EDT ,
--- NOTE | 2022-04-06 17:24 | CON.PCM_ITS ---
Assessment & Plan Assessment/Plan (1) Diabetic foot infection: (2) Type 2 diabetes mellitus with foot ulcer: (3) Cellulitis and abscess of right lower extremity: (4) Non-pressure chronic ulcer of other part of right foot with necrosis of muscle: (5) Diabetes mellitus with diabetic polyneuropathy: PLAN: Plan Evaluation performed. Reviewed diagnostic data. WBC, ESR and CRP significantly elevated. Right foot xrays with concern for gas. There is visible abscess to the plantar right foot which from history is worsening. Discussed the options with patient. She has been started on IV antibiotics, but also discussed Incision, drainage and debridement of the right foot at this time. Reviewed the rationale of this with her in detail. Given the findings the I+D and debridement was recommended, she agreed. We will plan to proceed with this. Will obtained cultures. HPI Consult Data Date of Consult: 04/06/22 HPI Narrative Reason for Consultation: Right foot infection HPI Narrative: SHOLA PATTON, is a 32 F who presents with significant right foot infection. She relates she has had a wound on the bottom of her right foot since 2018, she relates it has not healed. She relates she has had bad infections in the past and aways healed with antibiotics. She relates she was seen in [place] and was told she would likely need an amputation. She relates at the time the foot did get better. However she relates the wound never healed and over the past couple of days her foot has become very painful, red and swollen. There is also redness and swelling patch to the right leg which she relates is also painful and about double the size compared to yesterday. She was in the ER yesterday and she refused being admitted. She returned today due to worsening of the foot. She has elevated WBC, ESR, and CRP. She has a fever. She relates she has not eaten in 2 days. She relates she tried to eat a popsicle but threw it up today. She has hx of diabetes. PFSH Medical History Anxiety Asthma Constipation Depression Diabetes Hypertension Smoker Home Medications metformin 500 mg tablet 500 mg PO BID #60 tabs 01/16/22 [Rx Last Taken 04/05/22] ondansetron HCl 4 mg tablet 4 mg PO Q8H PRN PRN Nausea 02/01/22 [History Last Taken 3 Months Ago ~01/04/22] cephalexin 500 mg capsule 500 mg PO Q6 #40 CAPSULES 04/05/22 [Rx Last Taken 04/06/22] sulfamethoxazole 800 mg-trimethoprim 160 mg tablet 1 tab PO BID #20 TABLETS 04/05/22 [Rx Last Taken 04/06/22] albuterol sulfate 90 mcg/actuation aerosol inhaler (Ventolin HFA) inh inhalation Q4H 04/06/22 [History Last Taken 04/06/22] docusate sodium 100 mg capsule (Dulcolax Stool Softener (docusate)) 100 mg PO BID PRN stool 04/06/22 [History Last Taken 3 Months Ago ~01/04/22] polyethylene glycol 3350 17 gram oral powder packet 17 g PO DAILY PRN stool 04/06/22 [History Last Taken 2 Months Ago ~02/03/22] sennosides 8.6 mg-docusate sodium 50 mg tablet (Stimulant Laxative Plus) 1 - 2 tab PO DAILY PRN stool 04/06/22 [History Last Taken 1 Month Ago ~03/06/22] Allergy/AdvReac Type Severity Reaction Status Date / Time No Known Allergies Allergy Verified 04/06/22 12:45 Family History (Updated 04/06/22 @ 15:[address] Rickey Gifford DO) Other Bleeding disorder Cancer Diabetes Hypertension Social History Smoking Status: Current some day smoker tobacco type: cigarettes alcohol intake: never substance use type: does not use what type of physical activity do you participate in: none Physical Exam Const alert, oriented x3 and no apparent distress Skin Skin Narrative: Right foot - The is dry necrotic ulceration to the plantar 5th metatarsal head, there is significant edema, erythema and increased temperature to the right foot c/w infection, there is visible abscess to the plantar forefoot, there is no drainage present, no maloder, there is noted to be circular patch of erythema, edema, and abscess c/w infection to the distal anterior leg with infection, CFT < 2 seconds to all toes, there is POP to the abscess sites. Patient relates she is able to feel light touch to the right foot. Pedal pulses intact. No open lesions to the left foot, ankle or leg. CFT < 2 seconds to the left foot toes. Lab / Micro Data Result Diagrams: 04/06/22 13:55 04/06/22 13:55 Labs: Laboratory Results - last 24 hr 04/06/22 13:55: WBC 22.4 H, RBC 4.48, Hgb 12.0, Hct 36.8 L, MCV 82.1, MCH 26.8 L , MCHC 32.6, RDW Std Deviation 39.4, RDW Coeff of John 13.2, Plt Count 495 H, MPV 9.5, Immature Gran % (Auto) 1.200 H, Neut % (Auto) 80.1 H, Lymph % (Auto) 11.4 L , [place] % (Auto) 7.1, Eos % (Auto) 0.0, Baso % (Auto) 0.2, Absolute Neuts (auto) 18.0 H, Absolute Lymphs (auto) 2.55, Nucleated RBC % 0, Diff Path Review November, ESR 118 H 04/06/22 13:55: Sodium 130 L, Potassium 3.8, Chloride 94 L, Carbon Dioxide 25.0, Anion Gap 11, BUN 6 L, Creatinine 1.01, Estim Creat Clear Calc 76.25, Est GFR (MDRD) Af Amer 83, Est GFR (MDRD) Non-Af 68, BUN/Creatinine Ratio 5.9 L, Glucose 396 H, Calcium 9.7, C-React Prot Ext Range 321.00 H 04/06/22 13:55: Acetone Level NEGATIVE 04/06/22 13:55: Hemoglobin A1c 10.0 H 04/06/22 16:46: POC Glucose 379 H Radiology Impression Foot X-Ray 04/06/22 14:05 IMPRESSION: Soft tissue swelling. Small amount of gas is seen in the soft tissues along the plantar surface. Electronically Signed: Bernard Sadler MD at 14:21 EDT ,
--- NOTE | 2022-04-06 17:33 | EKG12_ITS ---
Test Reason : PRE OP Blood Pressure : / mmHG Vent. Rate : 116 BPM Atrial Rate : 116 BPM P-R Int : 136 ms QRS Dur : 086 ms QT Int : 328 ms P-R-T Axes : 063 009 037 degrees QTc Int : 455 ms Sinus tachycardia Confirmed by CELSO BOYCE, ALLAN ([id number]), fan mail editor KAYLA PRATHER ([id number]) on 04/08/2022 9:13:06 AM Referred By: KASEY Confirmed By:ALLAN HOUSTON MD
--- NOTE | 2022-04-06 17:39 | RAD_ITS ---
STUDY: X-RAY - RIGHT ANKLE REASON FOR EXAM: Female, 32 years old. infection TECHNIQUE: 3 view(s) of the ankle. COMPARISON: None. FINDINGS: Normal visualized distal tibia and fibula. Normal medial and lateral malleoli. Normal tibiotalar articulation and ankle mortise. Normal visualized talus and calcaneus small plantar calcaneal spur. The visualized subtalar, talonavicular, calcaneocuboid and tarsal articulations are normal. Soft tissue swelling along the malleoli and inframalleolar low soft tissue. RAD/Ankle min 3 Views IMPRESSION: There is soft tissue swelling. No signs of advanced osteomyelitis detected. There is high clinical suspicion level follow-up examination three-phase bone scan or MRI recommended. Electronically Signed: Aura Sampson MD at 18:43 EDT Reading Location ID and State: , Service support ,
[2022-04-06 18:17] LABS: Internal QC Validated? YES +Cl - CLEAR BKGD; Pregnancy, Serum, hCG Quali. NEGATIVE Negative
--- NOTE | 2022-04-06 18:20 | PCM.OPRPT ---
Report of Operation Date of Procedure: 04/06/22 Pre-Operative Diagnosis: Abscess right foot Necrotic ulceration right foot down to fascia/muscle layer Abscess right leg Post-Operative Diagnosis: Same Surgery/Procedure Performed:: Incision and drainage right foot and leg abscess with debridement of all nonviable, necrotic and infected soft tissue right foot ulcer and abscess right foot Surgeon: Andres Matias avionics electronics technician: None Type of Anesthesia: General and Local Specimen's removed: 1. Deep wound/abscess culture right foot - sent to microbiology 2. Abscess culture right leg - sent to microbiology 3. Debrided ulceration/abcess right foot - sent to pathology Estimated Blood Loss (mL): 15mL Description of Procedure: Indications: This is a 32 year old female with history of diabetes who presents for significant right foot ulceration and infection, and abscess, and also right leg abscess. Discussed with patient the options - antibiotics, wound care, as well as incision and drainage and debridement of the abscess, ulceration and infections sites. This was discussed with her in detail, reviewed rationale of this, as well as the possible benefits vs risks, goals, expectations and estimated course. Alternative options discussed and reviewed - antibiotics with no surgery, wound care. Reviewed possible benefits vs risks of each. She elected to proceed with the procedure of incision and drainage with debridement of all nonviable, infected and necrotic tissue from the right foot and leg. Advised the patient the risks include but not limited to pain, need for further procedures, swelling, delayed healing, nonhealing, worsening infection, blood clots, deformity, weakness, loss of limb, loss of life. She is at high risk of limb loss. The consent form was reviewed with her and she freely signed it. Also of note patient relates she is suppose to start a new job in about 1 week - I advised patient it will likely taken months for her foot to heal - could be longer. I advised she will not be able to start a new job in which she will need to use her foot. No weightbearing until foot is healed. No guarantees were given nor implied. No warranties were given. Operative Procedure: The patient was brought back to the operating room and was placed on the operating room table in the supine position. A timeout was preformed and the patient was properly identified and the surgical plan was confirmed. The patient was secured to the operating room table with a safety belt around her waist as well. The patient was already on IV antibiotics. The patient received general anesthesia per the anesthesia team. A well padded right thigh pneumatic tourniquet was applied around the right thigh. A local anesthesia block consisting of 20mL of 0.25% Bupivacaine plain was given around the right foot and abscess site of the right leg after the overlying skin was cleanse with 70% Isopropyl alcohol. The patient's right foot/ankle and leg were scrubbed, prepped, and draped in the usual aseptic fashion. Further attention was directed to the patient's right foot, ankle and leg - where there was significant cellulitis, there was visible abscess to the plantar forefoot, there was necrotic ulceration sub 5th metatarsal head down to fascia and muscle layer, there was cellulitis to the leg with abscess as well. The right foot was elevated for 3 minutes and the right thigh pneumatic tourniquet was inflated to 300mmHg. Using a 15 blade the abscess sites were incised and there was purulence noted - this was cultured and sent to microbiology, there was significant purulence to the plantar forefoot and the infection was deep extending to the dorsal forefoot where another longitudinal linear skin incision was made to allow for further drainage. There was nonviable and necrotic infected soft tissue down to muscle layer plantar forefoot which was debrided and excised using a 15 blade, the necrotic ulceration sub 5th metatarsal head was debrided in excisional fashion down to muscle/fascia layer using a 15 blade, this was debrided down to healthy viable bleeding tissue. The debrided tissue was sent to pathology. The leg abscess was incised as noted above, there was some purulence localized to the area, this was cultured and sent to microbiology, the abscess was broken up using a hemostat, the abscess was localized to the site and to the subcutaneous tissues with tissue planes intact. The sites were flushed out with copious amounts of normal saline solution. There was no exposed bone and probe to bone. The remaining tissues appeared healthy and viable. Total area debrided was 13cm x 5.6cm and down to muscle/fascia layer. A betadine gauze wet to dry dressing was applied with overlying kerlix and shawna dressing. The pneumatic tourniquet was deflated- there was immediate return of perfusion to the right foot with CFT < 2 seconds to all toes. Total tourniquet time was 21 minutes. The patient was transported from the operating room to the recovery room with vital signs stable and in good condition. Post op orders placed. The patient will be followed as an inpatient. Grafts/Implants Used: None Complications None
[2022-04-06 19:46] LABS: Bedside Glucose 287 mg/dL (74-106)
--- NOTE | 2022-04-06 20:42 | PCM.RX.CS ---
Consult Pharmacy has been consulted to manage selected antiobiotic: Vancomycin Type of Consult: New start Suspected Infection: Skin/Soft tissue Prior Doses of Antibiotics Received/Current Regimen: Received 2000mg iv x 1 on 04.06.22. Labs: Sodium 130 mmol/L (136-145) L 04/06/22 13:55 Potassium 3.8 mmol/L (3.5-5.1) 04/06/22 13:55 Chloride 94 mmol/L (98-107) L 04/06/22 13:55 Carbon Dioxide 25.0 mmol/L (21.0-32.0) 04/06/22 13:55 Anion Gap 11 (5-15) 04/06/22 13:55 BUN 6 mg/dL (7-18) L 04/06/22 13:55 Creatinine 1.01 mg/dL (0.55-1.02) 04/06/22 13:55 Est GFR (MDRD) Af Amer 83 mL/min (>60) 04/06/22 13:55 Est GFR (MDRD) Non-Af 68 mL/min (>60) 04/06/22 13:55 BUN/Creatinine Ratio 5.9 RATIO (10-20) L 04/06/22 13:55 Glucose 396 mg/dL (74-106) H 04/06/22 13:55 Weight used for dosin.6 kg Estimated Creatinine Clearance: 76 ml/min Goal Trough: 15-20 mcg/mL Pharmacy Plan for Drug Dosing: Will begin 1500mg iv q12h per protocol. Trough level ordered before 4th cumulative dose. Pharmacy Service will continue to monitor and adjust dosing as required. Follow-Up Labs: Trough Vancomycin - 04.08.22 @0430 before 0500 dose
[2022-04-06] MEDS: Insulin Glargine-YFGN 100 UNIT/ML Pen 20 UNIT SC (22:14)
[2022-04-06 22:46] LABS: Bedside Glucose 271 mg/dL (74-106)
[2022-04-07] VITALS (7 sets, daily range): BP systolic 126–136; BP diastolic 63–88; PULSE 88–103; RESP 16–18; TEMP 36.4–37.3; O2SAT 97–99
[2022-04-07 04:58] LABS: Absolute Lymphocyte Count 3.15 X10^3/uL (0.83-4.51); Absolute Neutrophil Count 9.1 X10^3/uL (2.0-7.7); Basophil# 0.06 X10^3/uL; Basophil% 0.4 % (0-1); Eosinophil# 0.22 X10^3/uL; Eosinophils% 1.6 % (0-5); Hematocrit 32.2 % (37-47); Hemoglobin 10.6 g/dL (12.0-15.0); Lymphocyte # 3.15 X10^3/ul (0.83-4.51); Mean Corp Hgb Conc 32.9 g/dL (32-36); Mean Corpuscular Hgb 27.3 pg (27.0-32.0); Mean Platelet Vol. 9.3 fl (6.2-12.0); Monocyte# 1.02 X10^3/uL; Monocyte% 7.4 % (0-10); NRBC Flagged by Analyzer 0 % (0-5); Neutrophil # 9.14 X10^3/uL (2.7-7.7); Neutrophil % 66.7 % (47-70); Platelet Count 422 K/mm3 (150-450); RBC Distribution Width CV 13.2 % (11.6-14.6); RBC Distribution Width SD 40.1 fl (35.1-43.9); Red Blood Count 3.88 M/mm3 (4.2-5.4); White Blood Count 13.7 K/mm3 (4.4-11.0)
[2022-04-07 05:40] LABS: ALB/GLOB Ratio 0.4 RATIO (0.9-2.4); AST(SGOT) 6 U/L (15-37); Alanine Aminotransfer ALT/SGPT 9 U/L (13-56); Albumin, Serum 2.3 g/dL (3.2-5.0); Alkaline Phosphatase 121 U/L (45-117); Anion Gap 11 (5-15); BUN 5 mg/dL (7-18); BUN/Creat Ratio 5.7 RATIO (10-20); Calcium,Total 8.7 mg/dL (8.5-10.1); Chloride 100 mmol/L (98-107); Creatinine, Serum 0.87 mg/dL (0.55-1.02); EST Glomerular Filtration Rate 81 mL/min (>60); Est Glom Filt Rate - Afr Amer 98 mL/min (>60); Estimated Creatinine Clearance 88.51 ml/min; Globulin 5.4 g/dL (2.2-4.2); Glucose 258 mg/dL (74-106); Potassium 3.5 mmol/L (3.5-5.1); Protein, Total 7.7 g/dL (6.4-8.2); Sodium Level 135 mmol/L (136-145)
[2022-04-07] MEDS: Insulin Lispro 100 UNIT/ML INSULN.PEN SC ×3 (06:38→16:44)
--- NOTE | 2022-04-07 06:53 | PN_ITS ---
Subjective Subjective Patient was seen this morning for follow up on right foot and leg. She relates pain is not to bad. She is resting in bed. WBC trending down. She has no new complaints. Patient is afebrile at this time. Objective Data Objective Data Vital Signs: Vital Signs Temp Pulse Resp BP Pulse Ox O2 Del Method 97.6 F L 95 16 126/83 H 98 Room Air 04/07/22 06:30 04/07/22 06:30 04/07/22 06:30 04/07/22 06:30 04/07/22 06:30 04/07/22 06:30 Oxygen Delivery Method Room Air Weight: 96.6 kg Body Mass Index (BMI) 34.3 Intake & Output: Intake and Output for Last 24 Hours 04/05/22 04/06/22 04/07/22 23:59 23:59 23:59 Intake Total 2184 / 2184 50 / 50 Balance 2184 / 2184 50 / 50 Lab / Micro Data Result Diagrams: 04/07/22 04:25 04/07/22 04:25 Labs: Laboratory Results - last 24 hr 04/06/22 13:55: WBC 22.4 H, RBC 4.48, Hgb 12.0, Hct 36.8 L, MCV 82.1, MCH 26.8 L , MCHC 32.6, RDW Std Deviation 39.4, RDW Coeff of John 13.2, Plt Count 495 H, MPV 9.5, Immature Gran % (Auto) 1.200 H, Neut % (Auto) 80.1 H, Lymph % (Auto) 11.4 L , [place] % (Auto) 7.1, Eos % (Auto) 0.0, Baso % (Auto) 0.2, Absolute Neuts (auto) 18.0 H, Absolute Lymphs (auto) 2.55, Nucleated RBC % 0, Diff Path Review November, ESR 118 H 04/06/22 13:55: Sodium 130 L, Potassium 3.8, Chloride 94 L, Carbon Dioxide 25.0, Anion Gap 11, BUN 6 L, Creatinine 1.01, Estim Creat Clear Calc 76.25, Est GFR (MDRD) Af Amer 83, Est GFR (MDRD) Non-Af 68, BUN/Creatinine Ratio 5.9 L, Glucose 396 H, Calcium 9.7, C-React Prot Ext Range 321.00 H 04/06/22 13:55: Acetone Level NEGATIVE 04/06/22 13:55: Hemoglobin A1c 10.0 H 04/06/22 13:55: Serum , Qual NEGATIVE 04/06/22 16:46: POC Glucose 379 H 04/06/22 19:24: POC Glucose 287 H 04/06/22 22:13: POC Glucose 271 H 04/07/22 04:25: WBC 13.7 H, RBC 3.88 L, Hgb 10.6 L, Hct 32.2 L, MCV 83.0, MCH 27.3, MCHC 32.9, RDW Std Deviation 40.1, RDW Coeff of John 13.2, Plt Count 422, MPV 9.3, Immature Gran % (Auto) 0.900, Neut % (Auto) 66.7, Lymph % (Auto) 23.0, Cloud % (Auto) 7.4, Eos % (Auto) 1.6, Baso % (Auto) 0.4, Absolute Neuts (auto) 9.1 H, Absolute Lymphs (auto) 3.15, Nucleated RBC % 0 04/07/22 04:25: Sodium 135 L, Potassium 3.5, Chloride 100, Carbon Dioxide 24.0, Anion Gap 11, BUN 5 L, Creatinine 0.87, Estim Creat Clear Calc 88.51, Est GFR (MDRD) Af Amer 98, Est GFR (MDRD) Non-Af 81, BUN/Creatinine Ratio 5.7 L, Glucose 258 H, Calcium 8.7, Total Bilirubin 0.70, AST 6 L, ALT 9 L, Alkaline Phosphatase 121 H, Total Protein 7.7, Albumin 2.3 L, Globulin 5.4 H, Albumin/Globulin Ratio 0.4 L Radiography Diagnostic Testing: Radiology Impression Foot X-Ray 04/06/22 14:05 IMPRESSION: Soft tissue swelling. Small amount of gas is seen in the soft tissues along the plantar surface. Electronically Signed: Bernard Sadler MD at 14:21 EDT , Tibia/Fibula X-Ray 04/06/22 17:23 IMPRESSION: Soft tissue swelling right lower leg and ankle. No radiographic evidence of osteomyelitis. Electronically Signed: Pranay Vega MD at 0:37 EDT , Ankle X-Ray 04/06/22 17:39 IMPRESSION: There is soft tissue swelling. No signs of advanced osteomyelitis detected. There is high clinical suspicion level follow-up examination three-phase bone scan or MRI recommended. Electronically Signed: Aura Sampson MD at 18:43 EDT Reading Location ID and State: 9 / , Service support , Physical Exam Const alert, oriented x3 and no apparent distress Skin Skin Narrative: Right foot - s/p I+D and debridement - down to fascia/muscle layer, tissues healthy and viable, there is some serous drainage, erythema much improved, I+D anterior leg down to subcutaneous tissue with tissues healthy and viable and some serous drainage - tissues healthy and viable. Cellulitis much improved, less edema. Calf is soft and supple with no edema, right. No evidence of DVT l eft either. CFT < 2 seconds to all toes on the right foot with no necrosis, no maloder present. Assessment & Plan Assessment/Plan (1) Diabetic foot infection: (2) Type 2 diabetes mellitus with foot ulcer: (3) Cellulitis and abscess of right lower extremity: (4) Non-pressure chronic ulcer of other part of right foot with necrosis of muscle: (5) Diabetes mellitus with diabetic polyneuropathy: PLAN: Plan Re-evaluation performed. s/p I+D and debridement right foot on 04/06/2020. Reviewed diagnostic data. WBC trending down. Patient is afebrile at this time. Clinically foot and leg improved today. Patient is on IV antibiotic - Vanc/Zosyn - cultures have been obtained and results pending. Wound care: Dakin's gauze wet to dry BID. Likely wound vac in future. Reviewed pre op right foot, ankel and tib/fib xrays - no evidence of osseous involvement, also there did not appear to be evidence of osseous invovlement in the I+D / debridement procedure, however MRI has been ordered for further evaluation. No weightbearing right foot. Keep right foot elevated. Patient would benefit from nursing facility placement as patient relates she lives alone. Podiatry will continue to follow.
[2022-04-07 07:05] LABS: Bedside Glucose 297 mg/dL (74-106)
--- NOTE | 2022-04-07 07:25 | CPS ---
Pt takes asthma meds prn and would like the Albuterol aerosol prn also. R.T. will contact
--- NOTE | 2022-04-07 07:56 | WOUNDNOTE ---
wound photo: right plantar foot
--- NOTE | 2022-04-07 07:56 | WOUNDNOTE ---
wound photo: right dorsal foot
--- NOTE | 2022-04-07 07:58 | WOUNDNOTE ---
wound photo: right lower leg
[2022-04-07] MEDS: Juven (unflavored) Packet 1 PACKET PO ×2 (08:39→16:45)
[2022-04-07] MEDS: Enoxaparin 40 MG/0.4 ML Syringe SC (09:11)
[2022-04-07] MEDS: LORazepam 0.5 MG Tablet PO (09:20)
--- NOTE | 2022-04-07 09:30 | MRI_ITS ---
STUDY: MRI RIGHT MIDFOOT REASON FOR EXAM: Chronic infection of the right foot for 4 years, debridement 04/06/2022. TECHNIQUE: Standardized fat and water weighted pulse sequences were obtained in all 3 orthogonal planes. COMPARISON: Radiographs 04/06/2022. FINDINGS: Normal talonavicular articulation. Normal calcaneocuboid articulation. Normal navicular-cuneiform articulations. Normal intercuneiform articulations. Normal first tarsometatarsal articulation. Normal Lisfranc ligament. Normal second and third tarsometatarsal articulations. Normal cuboid fourth and cuboid fifth tarsometatarsal articulation. There is bone edema of the head of the fifth metatarsal and base of the fifth proximal phalanx (inversion recovery sagittal images 28, 29) with corresponding decreased T1 bone marrow signal (T1 sagittal images 28, 29) suggestive of osteomyelitis. There is no bone edema of the first through fifth metatarsals for visualized phalanges of the first and fourth toes. Normal tibialis anterior tendon. Normal extensor hallucis longus tendon. Normal extensor digitorum longus tendons. Normal peroneus longus tendon and distal insertion. Normal peroneus brevis tendon and distal insertion. There is atrophy with partial fat replacement of the intrinsic muscles of the foot (T1 sagittal images 14-26). There is edema in the subcutis adipose space and a wound at the plantar aspect of the forefoot. There is no focal fluid collection to indicate soft tissue abscess. MRI/Lower Ext/No Jt/w/o IMPRESSION: Bone edema of the head of the fifth metatarsal and base of the fifth proximal phalanx suggestive of osteomyelitis. Edema in the subcutis adipose space without demonstrated soft tissue abscess. Atrophy of the intrinsic muscles of the foot. Electronically Signed: Feroz Mcpherson MD at 11:33 EDT ,
--- NOTE | 2022-04-07 09:44 | PCM.PN.HOSP ---
Subjective Subjective Doing well, no issues overnight. She did have her wound debrided by podiatry yesterday. We will plan for an MRI today Objective Data Objective Data Vital Signs: Vital Signs Temp Pulse Resp BP Pulse Ox O2 Del Method 97.6 F L 95 16 126/83 H 98 Room Air 04/07/22 06:30 04/07/22 06:30 04/07/22 06:30 04/07/22 06:30 04/07/22 06:30 04/07/22 06:30 Oxygen Delivery Method Room Air Weight: 212 lb 15.465 oz Body Mass Index (BMI) 34.3 Intake & Output: Intake and Output for Last 24 Hours 04/06/22 04/07/22 04/08/22 03:59 03:59 03:59 Intake Total 2234 / 2234 530 / 530 Balance 2234 / 2234 530 / 530 Lab / Micro Data Result Diagrams: 04/07/22 04:25 04/07/22 04:25 Labs: Laboratory Results - last 24 hr 04/06/22 13:55: WBC 22.4 H, RBC 4.48, Hgb 12.0, Hct 36.8 L, MCV 82.1, MCH 26.8 L, MCHC 32.6, RDW Std Deviation 39.4, RDW Coeff of John 13.2, Plt Count 495 H, MPV 9.5, Immature Gran % (Auto) 1.200 H, Neut % (Auto) 80.1 H, Lymph % (Auto) 11.4 L, [place] % (Auto) 7.1, Eos % (Auto) 0.0, Baso % (Auto) 0.2, Absolute Neuts (auto) 18.0 H, Absolute Lymphs (auto) 2.55, Nucleated RBC % 0, Diff Path Review November, ESR 118 H 04/06/22 13:55: Sodium 130 L, Potassium 3.8, Chloride 94 L, Carbon Dioxide 25.0, Anion Gap 11, BUN 6 L, Creatinine 1.01, Estim Creat Clear Calc 76.25, Est GFR (MDRD) Af Amer 83, Est GFR (MDRD) Non-Af 68, BUN/Creatinine Ratio 5.9 L, Glucose 396 H, Calcium 9.7, C-React Prot Ext Range 321.00 H 04/06/22 13:55: Acetone Level NEGATIVE 04/06/22 13:55: Hemoglobin A1c 10.0 H 04/06/22 13:55: Serum , Qual NEGATIVE 04/06/22 16:46: POC Glucose 379 H 04/06/22 19:24: POC Glucose 287 H 04/06/22 22:13: POC Glucose 271 H 04/07/22 04:25: WBC 13.7 H, RBC 3.88 L, Hgb 10.6 L, Hct 32.2 L, MCV 83.0, MCH 27.3, MCHC 32.9, RDW Std Deviation 40.1, RDW Coeff of John 13.2, Plt Count 422, MPV 9.3, Immature Gran % (Auto) 0.900, Neut % (Auto) 66.7, Lymph % (Auto) 23.0, [place] % (Auto) 7.4, Eos % (Auto) 1.6, Baso % (Auto) 0.4, Absolute Neuts (auto) 9.1 H, Absolute Lymphs (auto) 3.15, Nucleated RBC % 0 04/07/22 04:25: Sodium 135 L, Potassium 3.5, Chloride 100, Carbon Dioxide 24.0, Anion Gap 11, BUN 5 L, Creatinine 0.87, Estim Creat Clear Calc 88.51, Est GFR (MDRD) Af Amer 98, Est GFR (MDRD) Non-Af 81, BUN/Creatinine Ratio 5.7 L, Glucose 258 H, Calcium 8.7, Total Bilirubin 0.70, AST 6 L, ALT 9 L, Alkaline Phosphatase 121 H, Total Protein 7.7, Albumin 2.3 L, Globulin 5.4 H, Albumin/Globulin Ratio 0.4 L 04/07/22 06:37: POC Glucose 297 H Radiography Diagnostic Testing: Radiology Impression Foot X-Ray 04/06/22 14:05 IMPRESSION: Soft tissue swelling. Small amount of gas is seen in the soft tissues along the plantar surface. Electronically Signed: Bernard Sadler MD at 14:21 EDT , Tibia/Fibula X-Ray 04/06/22 17:23 IMPRESSION: Soft tissue swelling right lower leg and ankle. No radiographic evidence of osteomyelitis. Electronically Signed: Pranay Vega MD at 0:37 EDT , Ankle X-Ray 04/06/22 17:39 IMPRESSION: There is soft tissue swelling. No signs of advanced osteomyelitis detected. There is high clinical suspicion level follow-up examination three-phase bone scan or MRI recommended. Electronically Signed: Aura Sampson MD at 18:43 EDT , Physical Exam Narrative General: Alert, Oriented x3, Cooperative, No apparent distress HEENT: Atraumatic, PERRLA, EOMI, Normocephalic Oral: Moist Mucosa Neck: Supple, No JVD Lungs: Clear to auscultation, Normal air movement, No rhonchi, No wheeze, No rales Cardiovascular: Regular rate, Regular Rhythm, Normal S1, Normal S2, No murmurs Abdomen: Soft, Non Tender, Non-Distended, No Hepato-splenomegaly Extremities: No edema, Capillary Refill Less than 3 Seconds Skin: Right foot is swollen and there is an ulceration over her fifth MTP on the right foot without any surrounding erythema and there is some fluctuance in the dorsal aspect of her foot. Currently wrapped and dressed Musculoskeletal: No Tenderness to Palpation of Joints or Extremities Neurological: Cranial nerves II-XII grossly intact, Motor Exam 5/5 strength throughout, Sensory exam intact to light touch and pain Psych/Mental Status: Normal Affect, Appropriate Assessment & Plan Assessment/Plan (1) Diabetic foot infection: PLAN: Very concerning for a deeper infection rather than a superficial cellulitis. No clinical evidence of necrotizing fasciitis. Some air was noted on the plantar aspect of her right foot. But the more worrisome is on the dorsal aspect of the foot. Is very concerned the patient may have osteomyelitis with her ESR being 118 and her CRP being 312. Plan: Antibiotics with vancomycin and piperacillin/tazobactam MRI of the foot today with further recommendations depending on results Consult podiatry as I do anticipate the patient requiring surgical intervention. (2) Diabetes: QUALIFIERS: Diabetes mellitus complication status: with neurologic complications Diabetes mellitus long distance billing operator insulin use: without long distance billing operator use Diabetes mellitus type: type 2 PLAN: Type II Patient only takes metformin and does not check her blood sugars so is unclear what her blood sugars are been. Her current blood sugar is 396 Plan: Start insulin glargine at 20 and adjust accordingly Sliding scale insulin Check an A1c which I do expect to be very elevated PLAN: Plan DVT: Lovenox Charges/Coding Visit Charges Inpatient E&M: 31421 Subs Hosp L2
[2022-04-07] MEDS: DAKIN'S SOL HALF STRENGTH (=0.25%) 1 APPLIC TOPICAL ×2 (11:04→23:20)
--- NOTE | 2022-04-07 11:43 | CASEMGMT ---
RYNE LUJAN Assessment: Face to Face with pt for initial transition planning/care coordination assessment. RYNE LUJAN introduced self and role at [facility], pt voices understanding and consents to assessment. Pt is A/O x4 and answers all questions appropriately at this time. Pt lying in bed in no distress. Care providers, pharmacy, and demographics verified/updated. Pt does not have any contacts listed and prefers not to. Admitting Dx: DM foot infection PCP:Pt denies. Provided pt with a local healthcare directory list. Also noted on directory chicken vaccinator. Instructed pt on importance of having a PCP. Specialists:Pt denies. Preferred Pharmacy: [facility] [place] Insurance: [employer] Prescription Benefit: yes LW/HPOA: Pt denies having a LW/DPOA and denies need for info regarding AD. LNOK: None listed although pt mentions a grandmother and a cousin. Living Arrangements: Pt lives alone in a upstairs apt with 15 steps to enter with a rail on one side. Pt reports she is I in ADL's and denies concerns at home. Transportation: Pt has a license but does not have a car. DME/HHC/SNF: Pt denies having any DME in the home. Pt denies having a BGM. She states she is supposed to check her blood sugar but has not gotten at BGM. Pt denies any HHC or SNF stays. Pt states that she has a grandmother who is caring for her cousin who just had foot surgery but there is not enough room in the home for the 3 of them. Pt states she has no other family/friends who can perform any wound care. Pt states she may need to go to a SNF. Discussed with C that she would need an able and willing cg to perform dressing changes even though a nurse would come see her. Due to the fact that pt does not have this nor is able to get into her home, she is agreeable to SNF. Stressed importance to pt when she leaves SNF to make sure she has a PCP appt set up as well as a BGM and importance of monitoring blood sugars. Updated SW on the above and these needs upon dc of SNF. Discussed with patient to watch what she is being served for meals for a diabetic diet and how her glucose is monitored. Pt verbalizes understanding. Pt states no further concerns/needs. CM to follow. Advised pt to ask CM if any further question/concerns/needs arise, voices understanding. Pt Goal: SNF Plan: SNF
--- NOTE | 2022-04-07 12:11 | CASEMGMT ---
Social Work Per RNCM Jazlyn, pt will need SNF. SW in to meet [facility] pt and introduced self and role at hospital. Pt agreeable to discussing discharge plan. A printed list of SNF providers including quality and resources use date that is consistent with patient's preferred geographical region, medical needs, and insurances network were provided via the [employer] Guide Link.? Pt reviewed list and gave first choice as [facility]. SW informed d/c personal injury legal assistant, Ana Maria Ly, of pt choice. Ana Maria to send referral to [facility]. Once pt has accepting facility SW will update SNF to inform that pt will need assistance to establish care with PCP as pt has not completed this task on own. PLAN: [facility], pending acceptance and precert ILDEFONSO Garcia
[2022-04-07 12:20] LABS: Bedside Glucose 280 mg/dL (74-106)
[2022-04-07 13:03] LABS: Pathologist Review Reviewed
--- NOTE | 2022-04-07 13:04 | CASEMGMT ---
Discharge Gear Cutting Machine Set Up Operator This specifications writer was at patients bedside. Ana Maria explained to patient that [facility] can not accept due to the facility age limit is 55+ and over. 2nd choice is [facility], 3rd [facility]. This specifications writer sent referral to [facility] via [employer]. Will follow up. Plan: [facility], Waiting Acceptance Ana Maria Ly Discharge Gear Cutting Machine Set Up Operator
--- NOTE | 2022-04-07 14:47 | CASEMGMT ---
Discharge Associate Chief Nurse Luzma from [facility] reached out. Patient has been accepted at [facility]. This sba underwriter told Luzma to hold off on pre-cert. Ana Maria spoke to LE Hobson and we are waiting for ID to see patient. Will follow up. Plan: [facility] Ana Maria Ly Discharge Associate Chief Nurse
[2022-04-07 17:11] LABS: Bedside Glucose 208 mg/dL (74-106)
--- NOTE | 2022-04-07 17:19 | NURSING ---
back to room per pt 2nd request for another iv site in my left arm current iv site in Right AC without redness/leaking/tenderness around site or above site towards axilla. pt states 'it just bothers me when i move it pointing to distal area just around the insertion site (without any signs/symptoms of redness/infiltration, + blood return). Vein finder utilized, looked at left arm first and then moved over to right arm, pt raises her voice to nurse and says i don't want it in this fucking arm, put it in my left arm on the inside. education/teachback on IV site assessment/preparation/procedure and pt yells again at nurse and says i just want to get the fuck out of here. just leave it alone in my right arm. I just want to leave and go smoke. inquired as to amount pt smokes- pt states 4-5 cigarettes a day. offered to notify Md for possible nicotine patch or gum to help with pt craving and pt states neither of those help i don't want anything reinforced smoking policy. pt again tells nurse my IV will be just fine then how it is.
[2022-04-07] MEDS: Insulin Glargine-YFGN 100 UNIT/ML Pen 20 UNIT SC (23:20)
[2022-04-07 23:55] LABS: Bedside Glucose 305 mg/dL (74-106)
[2022-04-08] VITALS: BP 132/88; PULSE 88; RESP 18; TEMP 36.7; O2SAT 99
[2022-04-08 05:49] LABS: Absolute Lymphocyte Count 2.74 X10^3/uL (0.83-4.51); Absolute Neutrophil Count 3.9 X10^3/uL (2.0-7.7); Basophil# 0.07 X10^3/uL; Basophil% 0.9 % (0-1); Eosinophils% 3.9 % (0-5); Hematocrit 33.7 % (37-47); Hemoglobin 10.7 g/dL (12.0-15.0); Lymphocyte # 2.74 X10^3/ul (0.83-4.51); Lymphocyte % 35.5 % (19-41); Mean Corp Hgb Conc 31.8 g/dL (32-36); Mean Corpuscular Hgb 26.4 pg (27.0-32.0); Mean Platelet Vol. 9.3 fl (6.2-12.0); Monocyte# 0.61 X10^3/uL; Monocyte% 7.9 % (0-10); NRBC Flagged by Analyzer 0 % (0-5); Neutrophil # 3.91 X10^3/uL (2.7-7.7); Neutrophil % 50.8 % (47-70); POSITIVE COUNT YES; Platelet Count 426 K/mm3 (150-450); RBC Distribution Width CV 13.2 % (11.6-14.6); RBC Distribution Width SD 39.9 fl (35.1-43.9); Red Blood Count 4.06 M/mm3 (4.2-5.4); White Blood Count 7.7 K/mm3 (4.4-11.0)
[2022-04-08 06:00] VITALS: BP 137/89; PULSE 86; RESP 18; TEMP 36.6; O2SAT 96
[2022-04-08 06:00] LABS: Differential Indicated SCAN CRITERIA MET
[2022-04-08 06:24] LABS: Vancomycin, Trough Level 10.2 ug/mL (5.0-15.0)
[2022-04-08 06:28] LABS: Anion Gap 11 (5-15); BUN 12 mg/dL (7-18); BUN/Creat Ratio 19.6 RATIO (10-20); Calcium,Total 8.4 mg/dL (8.5-10.1); Chloride 104 mmol/L (98-107); Creatinine, Serum 0.61 mg/dL (0.55-1.02); EST Glomerular Filtration Rate 122 mL/min (>60); Est Glom Filt Rate - Afr Amer 147 mL/min (>60); Estimated Creatinine Clearance 126.24 ml/min; Glucose 297 mg/dL (74-106); Potassium 4.4 mmol/L (3.5-5.1); Sodium Level 136 mmol/L (136-145)
[2022-04-08] MEDS: Insulin Lispro 100 UNIT/ML INSULN.PEN SC ×4 (06:33→23:22)
[2022-04-08 06:45] LABS: Differential Comment SCANNED; Platelet Estimate ADEQUATE (ADEQ)
--- NOTE | 2022-04-08 06:56 | PN_ITS ---
Subjective Subjective Patient was seen this morning for follow up on right foot and leg. Patient with no fever, and is afebrile, WBC now normal. Objective Data Objective Data Vital Signs: Vital Signs Temp Pulse Resp BP Pulse Ox O2 Del Method 97.9 F 86 18 137/89 H 96 Room Air 04/08/22 06:00 04/08/22 06:00 04/08/22 06:00 04/08/22 06:00 04/08/22 06:00 04/08/22 06:00 Oxygen Delivery Method Room Air Weight: 96.6 kg Body Mass Index (BMI) 34.3 Intake & Output: Intake and Output for Last 24 Hours 04/06/22 04/07/22 04/08/22 23:59 23:59 23:59 Intake Total 2184 / 2184 1202.92 / 1202.92 50 / 50 Balance 2184 / 2184 1202.92 / 1202.92 50 / 50 Lab / Micro Data Result Diagrams: 04/08/22 05:35 04/08/22 05:35 Labs: Laboratory Results - last 24 hr 04/06/22 13:55: Diff Path Review Reviewed 04/07/22 06:37: POC Glucose 297 H 04/07/22 11:58: POC Glucose 280 H 04/07/22 16:43: POC Glucose 208 H 04/07/22 23:15: POC Glucose 305 H 04/08/22 05:35: WBC 7.7, RBC 4.06 L, Hgb 10.7 L, Hct 33.7 L, MCV 83.0, MCH 26.4 L, MCHC 31.8 L, RDW Std Deviation 39.9, RDW Coeff of John 13.2, Plt Count 426, MPV 9.3, Immature Gran % (Auto) 1.000 H, Neut % (Auto) 50.8, Lymph % (Auto) 35.5, [place] % (Auto) 7.9, Eos % (Auto) 3.9, Baso % (Auto) 0.9, Absolute Neuts (auto) 3.9, Absolute Lymphs (auto) 2.74, Nucleated RBC % 0, Differential Comment SCANNED, Platelet Estimate ADEQUATE 04/08/22 05:35: Sodium 136, Potassium 4.4, Chloride 104, Carbon Dioxide 21.0, Anion Gap 11, BUN 12, Creatinine 0.61, Estim Creat Clear Calc 126.24, Est GFR (MDRD) Af Amer 147, Est GFR (MDRD) Non-Af 122, BUN/Creatinine Ratio 19.6, Glucose 297 H, Calcium 8.4 L 04/08/22 05:35: Vancomycin Trough 10.2 Micro: Microbiology 04/06/22 Unknown Incision/Surgical Site Gram Stain - Final 04/06/22 Unknown Incision/Surgical Site Wound Culture - Preliminary No growth-Final to follow 04/06/22 Unknown Incision/Surgical Site Gram Stain - Final 04/06/22 Unknown Incision/Surgical Site Wound Culture - Preliminary Staphylococcus species Radiography Diagnostic Testing: Radiology Impression Lower Extremity MRI 04/07/22 09:30 IMPRESSION: Bone edema of the head of the fifth metatarsal and base of the fifth proximal phalanx suggestive of osteomyelitis. Edema in the subcutis adipose space without demonstrated soft tissue abscess. Atrophy of the intrinsic muscles of the foot. Electronically Signed: Feroz Mcpherson MD at 11:33 EDT , Physical Exam Const alert, oriented x3 and no apparent distress Skin Skin Narrative: Right foot - s/p I+D and debridement - down to fascia/muscle layer, tissues healthy and viable, there is some serous drainage, erythema continues to improve, I+D anterior leg down to subcutaneous tissue with tissues healthy and viable and some serous drainage - tissues healthy and viable and erythema significantly improved. There is less edema. Calf is soft and supple with no edema, right. No evidence of DVT left either. CFT < 2 seconds to all toes on the right foot with no necrosis, no maloder present. Assessment & Plan Assessment/Plan (1) Diabetic foot infection: (2) Type 2 diabetes mellitus with foot ulcer: (3) Cellulitis and abscess of right lower extremity: (4) Non-pressure chronic ulcer of other part of right foot with necrosis of muscle: (5) Diabetes mellitus with diabetic polyneuropathy: PLAN: Plan Re-evaluation performed. s/p I+D and debridement right foot on 04/06/2020. Reviewed diagnostic data. WBC now normal. Patient is afebrile at this time. Clinically foot and leg again improved today. Patient is on IV antibiotic - Vanc/Zosyn - cultures have been obtained and results pending. So far growing staph. Wound care: Dakin's gauze wet to dry BID. Likely wound vac in future. Reviewed pre op right foot, ankel and tib/fib xrays - no evidence of osseous involvement, also there did not appear to be evidence of osseous involvement in the I+D / debridement procedure, however MRI has been ordered and obtained for further evaluation. It was noted there were osseous changes to the 5th metatarsal head and base of the proximal phalanx of the 5th toe c/w osteomyelitis. Recommend Infectious Disease consultation. No weightbearing right foot. Keep right foot elevated. Patient would benefit from nursing facility placement as patient relates she lives alone. Podiatry will continue to follow.
[2022-04-08 07:20] LABS: Bedside Glucose 293 mg/dL (74-106)
[2022-04-08] MEDS: DAKIN'S SOL HALF STRENGTH (=0.25%) 1 APPLIC TOPICAL ×2 (08:00→23:24)
[2022-04-08] MEDS: Juven (unflavored) Packet 1 PACKET PO ×2 (08:31→16:39)
[2022-04-08] MEDS: Enoxaparin 40 MG/0.4 ML Syringe SC (08:32)
--- NOTE | 2022-04-08 09:05 | PHA.PHARE_ITS ---
Consult Pharmacy has been consulted to manage selected antiobiotic: Vancomycin Type of Consult: Follow-up Suspected Infection: Skin/Soft tissue Prior Doses of Antibiotics Received/Current Regimen: current dose is vanc 1500mg IV q12h Labs: Sodium 136 mmol/L (136-145) 04/08/22 05:35 Potassium 4.4 mmol/L (3.5-5.1) 04/08/22 05:35 Chloride 104 mmol/L (98-107) 04/08/22 05:35 Carbon Dioxide 21.0 mmol/L (21.0-32.0) 04/08/22 05:35 Anion Gap 11 (5-15) 04/08/22 05:35 BUN 12 mg/dL (7-18) 04/08/22 05:35 Creatinine 0.61 mg/dL (0.55-1.02) 04/08/22 05:35 Est GFR (MDRD) Af Amer 147 mL/min (>60) 04/08/22 05:35 Est GFR (MDRD) Non-Af 122 mL/min (>60) 04/08/22 05:35 BUN/Creatinine Ratio 19.6 RATIO (10-20) 04/08/22 05:35 Glucose 297 mg/dL (74-106) H 04/08/22 05:35 Vancomycin Trough 10.2 ug/mL (5.0-15.0) 04/08/22 05:35 Microbiology: Microbiology 04/06/22 Unknown Incision/Surgical Site Gram Stain - Final 04/06/22 Unknown Incision/Surgical Site Wound Culture - Final Meth. resistant Staph. aureus 04/06/22 Unknown Incision/Surgical Site Gram Stain - Final 04/06/22 Unknown Incision/Surgical Site Wound Culture - Preliminary No growth-Final to follow Weight used for dosin.6 kg Estimated Creatinine Clearance: >100ml/min Goal Trough: 15-20 mcg/mL Pharmacy Plan for Drug Dosing: The vanc trough drawn at 05:35 today (approx 11 hours after the previous dose) was 10.2. This is below goal so will increase dose to 1750mg IV q12h, starting this morning since this morning's dose has not been given yet. Will check a nother trough before the 4th new dose tomorrow. Pharmacy Service will continue to monitor and adjust dosing as required. Follow-Up Labs: Trough Vancomycin Labs to be done on [date and time ordered]: 04/09/22 19:30
--- NOTE | 2022-04-08 10:18 | PN.HOSP_ITS ---
Subjective Subjective Doing well, no issues overnight. Seems little bit uninterested in her health care Objective Data Objective Data Vital Signs: Vital Signs Temp Pulse Resp BP Pulse Ox O2 Del Method 97.9 F 86 18 137/89 H 96 Room Air 04/08/22 06:00 04/08/22 06:00 04/08/22 06:00 04/08/22 06:00 04/08/22 06:00 04/08/22 06:00 Oxygen Delivery Method Room Air Weight: 212 lb 15.465 oz Body Mass Index (BMI) 34.3 Intake & Output: Intake and Output for Last 24 Hours 04/07/22 04/08/22 04/09/22 03:59 03:59 03:59 Intake Total 2234 / 2234 1202.92 / 1202.92 50 / 50 Balance 2234 / 2234 1202.92 / 1202.92 50 / 50 Lab / Micro Data Result Diagrams: 04/08/22 05:35 04/08/22 05:35 Labs: Laboratory Results - last 24 hr 04/06/22 13:55: Diff Path Review Reviewed 04/07/22 11:58: POC Glucose 280 H 04/07/22 16:43: POC Glucose 208 H 04/07/22 23:15: POC Glucose 305 H 04/08/22 05:35: WBC 7.7, RBC 4.06 L, Hgb 10.7 L, Hct 33.7 L, MCV 83.0, MCH 26.4 L, MCHC 31.8 L, RDW Std Deviation 39.9, RDW Coeff of John 13.2, Plt Count 426, MPV 9.3, Immature Gran % (Auto) 1.000 H, Neut % (Auto) 50.8, Lymph % (Auto) 35.5, [place] % (Auto) 7.9, Eos % (Auto) 3.9, Baso % (Auto) 0.9, Absolute Neuts (auto) 3.9, Absolute Lymphs (auto) 2.74, Nucleated RBC % 0, Differential Comment SCANNED, Platelet Estimate ADEQUATE 04/08/22 05:35: Sodium 136, Potassium 4.4, Chloride 104, Carbon Dioxide 21.0, Anion Gap 11, BUN 12, Creatinine 0.61, Estim Creat Clear Calc 126.24, Est GFR (MDRD) Af Amer 147, Est GFR (MDRD) Non-Af 122, BUN/Creatinine Ratio 19.6, G lucose 297 H, Calcium 8.4 L 04/08/22 05:35: Vancomycin Trough 10.2 04/08/22 06:32: POC Glucose 293 H Micro: Microbiology 04/06/22 Unknown Incision/Surgical Site Gram Stain - Final 04/06/22 Unknown Incision/Surgical Site Wound Culture - Final Meth. resistant Staph. aureus 04/06/22 Unknown Incision/Surgical Site Gram Stain - Final 04/06/22 Unknown Incision/Surgical Site Wound Culture - Preliminary No growth-Final to follow Radiography Diagnostic Testing: Radiology Impression Lower Extremity MRI 04/07/22 09:30 IMPRESSION: Bone edema of the head of the fifth metatarsal and base of the fifth proximal phalanx suggestive of osteomyelitis. Edema in the subcutis adipose space without demonstrated soft tissue abscess. Atrophy of the intrinsic muscles of the foot. Electronically Signed: Feroz Mcpherson MD at 11:33 EDT Reading Location ID and State: [address] [place] [address] Tel , Service support , Physical Exam Narrative General: Alert, Oriented x3, Cooperative, No apparent distress HEENT: Atraumatic, PERRLA, EOMI, Normocephalic Oral: Moist Mucosa Neck: Supple, No JVD Lungs: Clear to auscultation, Normal air movement, No rhonchi, No wheeze, No rales Cardiovascular: Regular rate, Regular Rhythm, Normal S1, Normal S2, No murmurs Abdomen: Soft, Non Tender, Non-Distended, No Hepato-splenomegaly Extremities: No edema, Capillary Refill Less than 3 Seconds Skin: Right foot is swollen and there is an ulceration over her fifth MTP on the right foot without any surrounding erythema and there is some fluctuance in the dorsal aspect of her foot. Currently wrapped and dressed Musculoskeletal: No Tenderness to Palpation of Joints or Extremities Neurological: Cranial nerves II-XII grossly intact, Motor Exam 5/5 strength throughout, Sensory exam intact to light touch and pain Psych/Mental Status: Normal Affect, Appropriate Assessment & Plan Assessment/Plan (1) Diabetic foot infection: PLAN: Very concerning for a deeper infection rather than a superficial cellulitis. No clinical evidence of necrotizing fasciitis. Some air was noted on the plantar aspect of her right foot. But the more worrisome is on the dorsal aspect of the foot. Is very concerned the patient may have osteomyelitis with her ESR being 118 and her CRP being 312. Plan: * Antibiotics with vancomycin and piperacillin/tazobactam * Given osseous changes in the fifth MTP on MRI, will consult infectious disease for antibiotic recommendations. 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 Her current blood sugar is 396 Plan: * Continue with long-acting and will make adjustments as necessary * Sliding scale insulin * A1c of 10 PLAN: Plan DVT: Lovenox Charges/Coding Visit Charges Inpatient E&M: 24508 Subs Hosp L2
[2022-04-08 11:25] LABS: Bedside Glucose 301 mg/dL (74-106)
[2022-04-08 11:26] VITALS: BP 135/77; PULSE 98; RESP 16; TEMP 36.7; O2SAT 97
[2022-04-08 12:00] VITALS: BP 135/77; PULSE 100; RESP 18; TEMP 36.8; O2SAT 99
--- NOTE | 2022-04-08 12:51 | PCM.CONS.GEN ---
Assessment & Plan Assessment/Plan (1) Diabetes mellitus with diabetic polyneuropathy: (2) Osteomyelitis: PLAN: Mrsa R foot osteo - now s/p I&D 04/06/[address] Matias. No bone involvement seen in OR. Surg cx with MRSA. Will order picc and 6 weeks iv vanc, stop date 05/18/22 with weekly labs. ID followup in 2 weeks. Will follow, thank you, d/w Dr. Nick and case coordinator. Wrote rx. HPI Consult Data Date of Consult: 04/08/22 HPI Narrative Reason for Consultation: osteo HPI Narrative: SHOLA PATTON, is a 32 F with uncontrolled T2DM, denies neuropathy, presented 04/06 with about a week of worsening R foot ulcer, c/o pain, redness, swelling, and warmth. Some associated chills. No drainage. No inciting event. Has had wound on R foot since 2018 with intermittent healing/worsening. No new joint pain/back pain. Came to ED, admitted on vanc/zosyn, seen by podiatry, taken to OR for I&D of abscess on 04/06. Surg cx with MRSA. Feeling better. Full ROS performed and neg except as noted above. PFSH Medical History Anxiety Asthma Constipation Depression Diabetes Hypertension Smoker Home Medications metformin 500 mg tablet 500 mg PO BID #60 tabs 01/16/22 [Rx Last Taken 04/05/22] ondansetron HCl 4 mg tablet 4 mg PO Q8H PRN PRN Nausea 02/01/22 [History Last Taken 3 Months Ago ~01/04/22] albuterol sulfate 90 mcg/actuation aerosol inhaler (Ventolin HFA) inh inhalation Q4H 04/06/22 [History Last Taken 04/06/22] docusate sodium 100 mg capsule (Dulcolax Stool Softener (docusate)) 100 mg PO BID PRN stool 04/06/22 [History Last Taken 3 Months Ago ~01/04/22] polyethylene glycol 3350 17 gram oral powder packet 17 g PO DAILY PRN stool 04/06/22 [History Last Taken 2 Months Ago ~02/03/22] sennosides 8.6 mg-docusate sodium 50 mg tablet (Stimulant Laxative Plus) 1 - 2 tab PO DAILY PRN stool 04/06/22 [History Last Taken 1 Month Ago ~03/06/22] vancomycin 1.75 gram/500 mL in 0.9 % sodium chloride intravenous 1.75 g (500 mL) IV Q12H 40 days #40,000 mL 04/08/22 [Rx Last Taken Unknown] Allergy/AdvReac Type Severity Reaction Status Date / Time No Known Allergies Allergy Verified 04/06/22 12:45 Family History (Updated 04/06/22 @ 15:[address] Rickey Gifford DO) Other Bleeding disorder Cancer Diabetes Hypertension Social History Smoking Status: Current some day smoker tobacco type: cigarettes alcohol intake: never substance use type: does not use what type of physical activity do you participate in: none Physical Exam Const alert, oriented x3 and no apparent distress HEENT normocephalic and head/scalp atraumatic Eyes PERRL and EOMs intact bilaterally Neck supple and No nodes Resp normal air movement and clear to auscultation bilaterally Cardio regular rate and regular rhythm GI soft to palpation, non-tender and non-distended Extremity General Extremity: Negative for edema Skin Skin Narrative: Reviewed photos RLE Neuro CN's II-XII intact bilaterally Lab / Micro Data Attestation: I reviewed the patient's lab results. Result Diagrams: 04/08/22 05:35 04/08/22 05:35 Labs: Laboratory Results - last 24 hr 04/06/22 13:55: Diff Path Review Reviewed 04/07/22 16:43: POC Glucose 208 H 04/07/22 23:15: POC Glucose 305 H 04/08/22 05:35: WBC 7.7, RBC 4.06 L, Hgb 10.7 L, Hct 33.7 L, MCV 83.0, MCH 26.4 L, MCHC 31.8 L, RDW Std Deviation 39.9, RDW Coeff of John 13.2, Plt Count 426, MPV 9.3, Immature Gran % (Auto) 1.000 H, Neut % (Auto) 50.8, Lymph % (Auto) 35.5, [place] % (Auto) 7.9, Eos % (Auto) 3.9, Baso % (Auto) 0.9, Absolute Neuts (auto) 3.9, Absolute Lymphs (auto) 2.74, Nucleated RBC % 0, Differential Comment SCANNED, Platelet Estimate ADEQUATE 04/08/22 05:35: Sodium 136, Potassium 4.4, Chloride 104, Carbon Dioxide 21.0, Anion Gap 11, BUN 12, Creatinine 0.61, Estim Creat Clear Calc 126.24, Est GFR (MDRD) Af Amer 147, Est GFR (MDRD) Non-Af 122, BUN/Creatinine Ratio 19.6, Glucose 297 H, Calcium 8.4 L 04/08/22 05:35: Vancomycin Trough 10.2 04/08/22 06:32: POC Glucose 293 H 04/08/22 11:06: POC Glucose 301 H Micro: Microbiology 04/06/22 Unknown Incision/Surgical Site Gram Stain - Final 04/06/22 Unknown Incision/Surgical Site Wound Culture - Final Meth. resistant Staph. aureus 04/06/22 Unknown Incision/Surgical Site Gram Stain - Final 04/06/22 Unknown Incision/Surgical Site Wound Culture - Preliminary No growth-Final to follow
--- NOTE | 2022-04-08 14:26 | CASEMGMT ---
Social Work SW faxed PT evaluation to [facility] via [employer]. Updated [facility] through this communication that pt will now be getting PICC line. ILDEFONSO Garcia
--- NOTE | 2022-04-08 14:50 | NURSING ---
Upon attempting to start IV ATB for 1400 dose, patient asked this nurse to please move IV. Patient states, It Fing hurts, they tried yesterday but could not get another IV. This nurse told patient that if they couldnt find one yesterday that we wouldnt have much luck today to find new spot. This nurse asked patient if she could tolerate current IV for 1/2 hr more to receive dose of ATB while we wait on PICC line to be placed. Patient became very angry and stated, I am not waiting another 1/2 hour, everyone always says 1/2 hour and its not. I will leave if you cannot move this IV. This nurse went and told charge nurse patient was stating she wanted to leave AMA. Charge nurse went and talked with patient and patient eventually agreed to wait a while for PICC line to be placed but still refused ATB at this time.
--- NOTE | 2022-04-08 14:50 | CASEMGMT ---
Social Work SW informed by Dr Nick that pt is upset and wanting to leave AMA. SW in to pt room to provide emotional support. Pt crying, visibly upset. SW attempted to speak with pt. Pt declined, stated I don't need to talk to anyone. SW informed pt SW can come back to room at anytime and encouraged pt to ask for SW if wants to talk. Pt then covered head under blanket. SW to follow and check on pt later. ILDEFONSO Garcia
--- NOTE | 2022-04-08 15:09 | CASEMGMT ---
Social Work SW faxed Infectious Disease consult and wound care notes from today. Requested precert be started. ILDEFONSO Garcia
[2022-04-08] MEDS: LORazepam 2 MG/ML Syringe 0.5 MG IV (15:11)
[2022-04-08 17:05] LABS: Bedside Glucose 265 mg/dL (74-106)
[2022-04-08 18:00] VITALS: BP 126/82; BP 128/86; PULSE 91; PULSE 94; RESP 16; TEMP 36.6; TEMP 36.7; O2SAT 100; O2SAT 99
[2022-04-08] MEDS: 0.9% Saline Lock 10 ML Syringe IV ×2 (20:55→23:58)
[2022-04-08] MEDS: Insulin Glargine-YFGN 100 UNIT/ML Pen 35 UNIT SC (23:23)
[2022-04-08 23:59] VITALS: BP 115/75; PULSE 86; RESP 18; TEMP 36.4; O2SAT 99
[2022-04-09] VITALS: BP 115/75; PULSE 86; RESP 18; TEMP 36.4; O2SAT 99
[2022-04-09] MEDS: Docusate Sodium 100 MG Capsule PO (00:05)
[2022-04-09 00:31] LABS: Bedside Glucose 276 mg/dL (74-106)
[2022-04-09 05:16] VITALS: BP 110/75; PULSE 92; RESP 18; TEMP 36.6; O2SAT 97
[2022-04-09 05:19] VITALS: BP 110/75; PULSE 92; RESP 18; TEMP 36.6; O2SAT 97
[2022-04-09] MEDS: 0.9% Saline Lock 10 ML Syringe IV ×2 (06:29→17:14)
[2022-04-09] MEDS: Insulin Lispro 100 UNIT/ML INSULN.PEN SC ×2 (06:36→11:14)
[2022-04-09 06:50] LABS: Absolute Lymphocyte Count 2.68 X10^3/uL (0.83-4.51); Absolute Neutrophil Count 3.7 X10^3/uL (2.0-7.7); Basophil# 0.06 X10^3/uL; Basophil% 0.8 % (0-1); Eosinophil# 0.24 X10^3/uL; Eosinophils% 3.2 % (0-5); Hematocrit 30.5 % (37-47); Hemoglobin 9.8 g/dL (12.0-15.0); Lymphocyte # 2.68 X10^3/ul (0.83-4.51); Lymphocyte % 35.8 % (19-41); Mean Corp Hgb Conc 32.1 g/dL (32-36); Mean Corpuscular Hgb 26.3 pg (27.0-32.0); Mean Corpuscular Volume 81.8 fL (81-99); Mean Platelet Vol. 8.8 fl (6.2-12.0); Monocyte# 0.69 X10^3/uL; Monocyte% 9.2 % (0-10); NRBC Flagged by Analyzer 0 % (0-5); Neutrophil # 3.68 X10^3/uL (2.7-7.7); Neutrophil % 49.3 % (47-70); Platelet Count 478 K/mm3 (150-450); RBC Distribution Width SD 38.9 fl (35.1-43.9); Red Blood Count 3.73 M/mm3 (4.2-5.4); White Blood Count 7.5 K/mm3 (4.4-11.0)
[2022-04-09 07:01] LABS: Bedside Glucose 185 mg/dL (74-106)
[2022-04-09 07:09] LABS: Anion Gap 8 (5-15); BUN 11 mg/dL (7-18); BUN/Creat Ratio 17.2 RATIO (10-20); Calcium,Total 8.7 mg/dL (8.5-10.1); Chloride 102 mmol/L (98-107); Creatinine, Serum 0.64 mg/dL (0.55-1.02); EST Glomerular Filtration Rate 116 mL/min (>60); Est Glom Filt Rate - Afr Amer 140 mL/min (>60); Estimated Creatinine Clearance 120.32 ml/min; Glucose 190 mg/dL (74-106); Potassium 3.6 mmol/L (3.5-5.1); Sodium Level 138 mmol/L (136-145)
[2022-04-09] MEDS: DAKIN'S SOL HALF STRENGTH (=0.25%) 1 APPLIC TOPICAL (07:59)
--- NOTE | 2022-04-09 08:02 | WOUNDNOTE ---
wound photo: right lower leg
--- NOTE | 2022-04-09 08:03 | WOUNDNOTE ---
wound photo: right dorsal foot
--- NOTE | 2022-04-09 08:03 | WOUNDNOTE ---
wound photo: right plantar foot
[2022-04-09] MEDS: Juven (unflavored) Packet 1 PACKET PO ×2 (08:15→16:36)
[2022-04-09] MEDS: Enoxaparin 40 MG/0.4 ML Syringe SC (08:15)
[2022-04-09] MEDS: Senna/Docusate Sodium 1 Tablet PO (08:32)
--- NOTE | 2022-04-09 09:45 | PN.ID_ITS ---
Physical Exam Narrative Feeling ok, picc in place, no fever, no n/v/d. Const alert and no apparent distress Resp normal air movement and clear to auscultation bilaterally Cardio regular rate and regular rhythm GI soft to palpation, non-tender and non-distended Skin Skin Narrative: foot wrapped ID ID: Route of nutrition/ use of supplements: [] Nutritional Intake: [] IV Site: [] [place] Catheter: [] Assessment & Plan Assessment/Plan (1) Diabetes mellitus with diabetic polyneuropathy: (2) Osteomyelitis: PLAN: Mrsa R foot osteo - now s/p I&D 04/06/[address] Matias. No bone involvement seen in OR. Surg cx with MRSA. Picc in place, plan is for 6 weeks iv vanc, stop date 05/18/22 with weekly labs. ID followup in 2 weeks. Will follow, d/w disease case manager rn
--- NOTE | 2022-04-09 10:21 | CASEMGMT ---
Social Work Phone call placed to Luzma at [facility]. Precert has been started and is pending. Luzma to notify when preauthorization determination has been made. Plan: [facility], pending precert ILDEFONSO Walker
--- NOTE | 2022-04-09 11:00 | PCM.PN.HOSP ---
Subjective Subjective Doing well today, she did have the PICC line placed yesterday and currently awaiting pre-CERT Objective Data Objective Data Vital Signs: Vital Signs Temp Pulse Resp BP Pulse Ox O2 Del Method 97.9 F 92 18 110/75 97 Room Air 04/09/22 05:19 04/09/22 05:19 04/09/22 05:19 04/09/22 05:19 04/09/22 05:19 04/09/22 05:19 Oxygen Delivery Method Room Air Weight: 212 lb 15.465 oz Body Mass Index (BMI) 34.3 Intake & Output: Intake and Output for Last 24 Hours 04/08/22 04/09/22 04/10/22 03:59 03:59 03:59 Intake Total 1202.92 / 1202.92 3270 / 3270 Balance 1202.92 / 1202.92 3270 / 3270 Lab / Micro Data Result Diagrams: 04/09/22 06:25 04/09/22 06:25 Labs: Laboratory Results - last 24 hr 04/08/22 11:06: POC Glucose 301 H 04/08/22 16:34: POC Glucose 265 H 04/08/22 23:19: POC Glucose 276 H 04/09/22 06:25: WBC 7.5, RBC 3.73 L, Hgb 9.8 L, Hct 30.5 L, MCV 81.8, MCH 26.3 L, MCHC 32.1, RDW Std Deviation 38.9, RDW Coeff of John 13.0, Plt Count 478 H, MPV 8.8, Immature Gran % (Auto) 1.700 H, Neut % (Auto) 49.3, Lymph % (Auto) 35.8, [place] % (Auto) 9.2, Eos % (Auto) 3.2, Baso % (Auto) 0.8, Absolute Neuts (auto) 3.7, Absolute Lymphs (auto) 2.68, Nucleated RBC % 0 04/09/22 06:25: Sodium 138, Potassium 3.6, Chloride 102, Carbon Dioxide 28.0, Anion Gap 8, BUN 11, Creatinine 0.64, Estim Creat Clear Calc 120.32, Est GFR (MDRD) Af Amer 140, Est GFR (MDRD) Non-Af 116, BUN/Creatinine Ratio 17.2, Glucose 190 H, Calcium 8.7 04/09/22 06:35: POC Glucose 185 H Micro: Microbiology 04/06/22 Unknown Incision/Surgical Site Gram Stain - Final 04/06/22 Unknown Incision/Surgical Site Wound Culture - Final Meth. resistant Staph. aureus 04/06/22 Unknown Incision/Surgical Site Anaerobic Culture - Final No anaerobic bacteria isolated. 04/06/22 Unknown Incision/Surgical Site Gram Stain - Final 04/06/22 Unknown Incision/Surgical Site Wound Culture - Preliminary No growth-Final to follow Physical Exam Narrative General: Alert, Oriented x3, Cooperative, No apparent distress HEENT: Atraumatic, PERRLA, EOMI, Normocephalic Oral: Moist Mucosa Neck: Supple, No JVD Lungs: Clear to auscultation, Normal air movement, No rhonchi, No wheeze, No rales Cardiovascular: Regular rate, Regular Rhythm, Normal S1, Normal S2, No murmurs Abdomen: Soft, Non Tender, Non-Distended, No Hepato-splenomegaly Extremities: No edema, Capillary Refill Less than 3 Seconds Skin: Right foot is swollen and there is an ulceration over her fifth MTP on the right foot without any surrounding erythema and there is some fluctuance in the dorsal aspect of her foot. Currently wrapped and dressed Musculoskeletal: No Tenderness to Palpation of Joints or Extremities Neurological: Cranial nerves II-XII grossly intact, Motor Exam 5/5 strength throughout, Sensory exam intact to light touch and pain Psych/Mental Status: Normal Affect, Appropriate Assessment & Plan Assessment/Plan (1) Diabetic foot infection: PLAN: Diabetic foot infection with osteomyelitis Plan: Antibiotics with vancomycin and piperacillin/tazobactam Given osseous changes in the fifth MTP on MRI, will consult infectious disease for antibiotic recommendations. 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 Her current blood sugar is 396 Plan: Continue with long-acting and will make adjustments as necessary Sliding scale insulin A1c of 10 PLAN: Plan DVT: Lovenox Charges/Coding Visit Charges Inpatient E&M: 07411 Subs Hosp L2
[2022-04-09 11:15] VITALS: BP 132/87; PULSE 92; RESP 18; TEMP 36.6; O2SAT 100
[2022-04-09 11:56] LABS: Bedside Glucose 281 mg/dL (74-106)
[2022-04-09 12:00] VITALS: BP 132/87; PULSE 92; RESP 18; TEMP 36.6; O2SAT 100
[2022-04-09] MEDS: DiphenhydrAMINE 25 MG Capsule PO (12:42)
--- NOTE | 2022-04-09 13:10 | CASEMGMT ---
Discharge Beet Worker Luzma reached out from [facility]. Pre-cert has been obtained. Sheila notified. Plan: [facility] Ana Maria Ly Discharge Beet Worker
--- NOTE | 2022-04-09 13:15 | TREXTCAR_ITS ---
Diet Diet Order/Speech Therapy: 04/08/22 11:40 Diet: Consistent Carb - Calorie Controlled Food consistency:: Regular Liquid Consistency:: Regular/Thin Is pt able to select menu?: Yes How many daily calories?: 1600 calorie Wound(s) right foot: Wound Type: Neuropathic/Diabetic Foot Ulcer Dressing Change: Dakins moistened gauze right dorsal foot: Wound Type: Open Surgical Wound Dressing Change: Dakins moistened gauze right lower leg: Wound Type: Open Surgical Wound Dressing Change: Dakins moistened gauze Therapies Weight Bearing: Non weight bearing Physical Therapy: Eval and Treat Occupational Therapy: Eval and Treat Problem/Diagnosis (1) Diabetic foot infection: Status: Acute Code(s): E11.628 - Type 2 diabetes mellitus with other skin complications; L08.9 - Local infection of the skin and subcutaneous tissue, unspecified Plan: Diabetic foot infection with osteomyelitis Plan: * Antibiotics with vancomycin and piperacillin/tazobactam * Given osseous changes in the fifth MTP on MRI, will consult infectious disease for antibiotic recommendations. * Wound culture so far within MRSA, blood cultures are negative * Consult podiatry, appreciate assistance * Consulted infectious disease, they will will recommend 6 weeks of IV vancomycin * Currently awaiting pre-CERT for placement secondary to poor support and needing IV antibiotics through PICC line as well as continued wound care and needing to be nonweightbearing (2) Diabetes: Status: Acute Code(s): E11.9 - Type 2 diabetes mellitus without complications Plan: Type II Patient only takes metformin and does not check her blood sugars so is unclear what her blood sugars are been. Her current blood sugar is 396 Plan: * Continue with long-acting and will make adjustments as necessary * Sliding scale insulin * A1c of 10 Plan DVT: Lovenox Allergies/Procedures Done in Hospital Allergies No Known Allergies Allergy (Verified 04/06/22 12:45) Type of Care/Length of Stay Estimated LOS: Convalescent Care Less Than 30 days Type of Care Needed: Skilled Rehab Potential: Good Prognosis: Good Additional Orders/Day of Discharge Day of Discharge: 04/09/22 Dietary and Speech Recommendations Dietitian Recommendations/Changes: Will change diet to 1600 calorie/consistent carbohydrate diet. Continue Yusuf BID for wound healing. Strongly encourage referral to [facility] for glycemic control/diabetes education and ongoing diet education/weight loss when patient ready for lifestyle change. Discharge Plan Admission Admit Date/Time: 04/06/22 15:40 Attending Provider: Marc Nick Primary Care Provider: Care Physician,No Primary Consulting Providers: Andres Matias ; Rickey Gifford ; Charles Green Instructions Patient Instructions: Journaling for Mental Health, Diabetic Retinopathy Risk Factors, Using a Blood Sugar Log, Long-Term Complications of Diabetes, High Blood Sugar (Hyperglycemia), Resources for People with Diabetes, Managing Type 2 Diabetes, How to Check Your Blood Sugar, Diabetes Foot Infections Tx, Diabetes Foot Injury Tx, Insulin How To Use Where Inject, Healthy Meals for Diabetes, Diabetes: Keeping Feet Healthy, Diabetes: Inspecting Your Feet, Diabetes: Caring for Your Body, Your Body's Response to Anxiety, Wound Infection Tx, Diabetes Manage Stress Discharge Orders/Prescriptions Prescriptions: New vancomycin in 0.9 % sodium chl 1.75 gram/500 mL solution 1.75 g IV Q12H 40 Days Qty: 42014 0RF Rx Instructions: stop date 05/18/22 dx: MRSA osteo weekly bmp, cbc, vanc trough, and esr. Fax to [phone] routine picc care per protocol HySept 0.25 % Solution 1 applic topical BID Qty: 0 0RF Protocol: *Topical Application Instructions APPLICATION INSTRUCTIONS: right foot/leg wounds insulin lispro [Humalog KwikPen Insulin] 100 unit/mL Insulin Pen See Protocol subcut ACHS Qty: 0 0RF Protocol: 5. Sliding Scale Insulin High Dosing Condition: 150-209 mg/dl = 3 units Condition: 210-259 mg/dl = 6 units Condition: 260-324 mg/dl = 9 units Condition: 325-374 mg/dl = 12 units Condition: 375-409 mg/dl = 14 units Condition: 410-449 mg/dl = 16 units Condition: Greater than 449 call physician Protocol Text: - Use for Total Daily Dose of Insulin 81-120 units - Very insulin resistant or septic patients HIGH DOSING ALGORITHM insulin glargine-yfgn 100 unit/mL (3 mL) Insulin Pen 35 unit subcut QHS Qty: 0 0RF Continued metformin 500 mg tablet 500 mg PO BID Qty: 60 1RF ondansetron HCl 4 mg tablet 4 mg PO Q8H PRN PRN (Reason: Nausea) Label Comments: TAKE 1 TABLET BY MOUTH EVERY 8 HOURS NEEDED FOR NAUSEA AND VOMITING polyethylene glycol 3350 17 gram powder in packet 17 g PO DAILY PRN (Reason: stool) Label Comments: USE 1 PACKET BY MOUTH EVERY DAY NEEDED DAILY FOR CONSTIPATION sennosides-docusate sodium [Stimulant Laxative Plus] 8.6-50 mg tablet 1 - 2 tab PO DAILY PRN (Reason: stool) Label Comments: TAKE 1 TO 2 TABLETS BY MOUTH EVERY 12 HOURS albuterol sulfate [Ventolin HFA] 90 mcg/actuation HFA aerosol inhaler INHALATION Q4H docusate sodium [Dulcolax Stool Softener (dss)] 100 mg capsule 100 mg PO BID PRN (Reason: stool) Discontinued sulfamethoxazole-trimethoprim [sulfamethoxazole-trimethoprim] 1 TABLET tablet 1 tab PO BID Qty: 20 0RF cephalexin [cephalexin] 500 MG capsule 500 mg PO Q6 Qty: 40 0RF Referrals / Follow Up: Care Physician,No Primary [Primary Care Provider] - Disposition Disposition (needs filled in before D/C Order can be placed): [facility] ([facility]) Diabetes Qualifiers: Diabetes mellitus type: type 2 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
--- NOTE | 2022-04-09 13:45 | CASEMGMT ---
Social Work SW in to notify pt of insurance authorization. Pt appreciative, asking about if family can transport to SNF vs. pt going by Ambulance so pt can smoke before arriving at SNF. It helps keep me calm. SW informed pt Dr. Nick would be consulted on this and SW will let pt know what recommends. SW also spoke to pt about follow up care and working with the SNF to find a PCP that pt likes and will feel comfortable with. Pt agreeable to have this discussion with SNF staff. SW provided emotional support for pt and checked with pt on experience from yesterday when pt was feeling high anxiety. Pt reports feels better today but is concerned about getting anxious upon discharge and transfer to SNF. SW validated pt feelings. Pt discussed getting medicine that helped yesterday and talking with Dr. Nick about pt anxiety to see if can help in anxiety management. Sheila Leiva, ILDEFONSO
--- NOTE | 2022-04-09 14:31 | CASEMGMT ---
Addendum entered by Sheila Leiva 04/09/22 15:12: ABIGAIL provided charge Nurse, Jonelle with transportation papers if pt family should not be able to transport. ABIGAIL explained only thing that would need done is a pc to physicians ambulance to set up the transportation, if needed. ABIGAIL informed Luzma at [facility] of plan for family to transport via [facility] and Luzma responded with understanding. ILDEFONSO Garcia Original Note: Social Work SW spoke to Dr. Nick to determine if pt able to be transported by family vs. ambulance. Dr. Nick stated pt is adult who makes her own decisions. Pt is aware of the risk. We cannot force her to go via ambulance although it is the best option. ABIGAIL spoke to pt, inform pt of Dr. Nick recomendation and pt stated would still be going home with grandma rather than ambulance. Pt stated wants to go to own apartment to gather clothing and hygiene supplies before going to SNF. SW discussed concern with pt ambulating 15 steps to enter apartment. Pt stated would use her arms to lift rather than put weight on foot. SW continued to encourage pt to go to SNF via Ambulance and have family gather belongings but pt adamant that would not work. ABIGAIL completed [facility] Convalescent form in [facility] system. Faxed discharge orders including script, signed med list, transfer to extended care form and negative covid result to [facility] via [facility]. Pt stated would call grandmother to set up time for transport as grandmother would be busy until later this afternoon. ABIGAIL update pt nurse of transportation plan. Disposition: [facility] for skilled, convalescent level of care ILDEFONSO Garcia
--- NOTE | 2022-04-09 14:50 | DS.PCM_ITS ---
Providers Date of Admission: 04/06/22 Primary Care Physician: Almita Primary Care Phys Consultations 04/06/22 16:18 Consult: Onc/Wound/security lead Routine Comment: Consult: Podiatry Routine Consulting Provider: Andres Matias Reason for Consult: diabetic foot infection EMERGENT Consult: No Notified: Yes Date Notified: 04/06/22 Time Notified: 15:50 Method of Notification: Text 04/07/22 12:02 Consult: Infectious Disease Routine Consulting Provider: Charles Green Reason for Consult: possilbe right foot/toe osteo EMERGENT Consult: No Notified: Yes Date Notified: 04/07/22 Time Notified: 12:02 Method of Notification: Text Reason For Visit: DIABETIC FOOT INFECTION Diagnosis Discharge Diagnosis (1) Diabetic foot infection: Status: Acute Code(s): E11.628 - Type 2 diabetes mellitus with other skin complications; L08.9 - Local infection of the skin and subcutaneous tissue, unspecified Plan: Diabetic foot infection with osteomyelitis Plan: * Antibiotics with vancomycin and piperacillin/tazobactam * Given osseous changes in the fifth MTP on MRI, will consult infectious disease for antibiotic recommendations. * Wound culture so far within MRSA, blood cultures are negative * Consult podiatry, appreciate assistance * Consulted infectious disease, they will will recommend 6 weeks of IV vancomycin * Currently awaiting pre-CERT for placement secondary to poor support and needing IV antibiotics through PICC line as well as continued wound care and needing to be nonweightbearing (2) Diabetes: Status: Acute Code(s): E11.9 - Type 2 diabetes mellitus without complications Qualifiers: Diabetes mellitus type: type 2 Diabetes mellitus fashion editor insulin use: without fashion editor use Diabetes mellitus complication status: with neurologic complications Plan: Type II Patient only takes metformin and does not check her blood sugars so is unclear what her blood sugars are been. Her current blood sugar is 396 Plan: * Continue with long-acting and will make adjustments as necessary * Sliding scale insulin * A1c of 10 Plan DVT: Lovenox Medications at Discharge Home Medications metformin 500 mg tablet 500 mg PO BID #60 tabs 01/16/22 ondansetron HCl 4 mg tablet 4 mg PO Q8H PRN PRN Nausea 02/01/22 albuterol sulfate 90 mcg/actuation aerosol inhaler (Ventolin HFA) inh inhalation Q4H 04/06/22 docusate sodium 100 mg capsule (Dulcolax Stool Softener (docusate)) 100 mg PO BID PRN stool 04/06/22 polyethylene glycol 3350 17 gram oral powder packet 17 g PO DAILY PRN stool 04/06/22 sennosides 8.6 mg-docusate sodium 50 mg tablet (Stimulant Laxative Plus) 1 - 2 tab PO DAILY PRN stool 04/06/22 vancomycin 1.75 gram/500 mL in 0.9 % sodium chloride intravenous 1.75 g (500 mL) IV Q12H 40 days #40,000 mL 04/08/22 insulin glargine-yfgn 100 unit/mL (3 mL) subcutaneous pen 35 unit (0.35 mL) subcut QHS #0 mL 04/09/22 insulin lispro 100 unit/mL subcutaneous pen (Humalog KwikPen (U-100) Insulin) See Protocol subcut ACHS #0 mL 04/09/22 sodium hypochlorite 0.25 % solution (HySept) 1 applic topical BID #0 mL 04/09/22 Hospital Course Operations - (I&D of right foot and leg abscess) Procedures PICC line placement Summary of Care Provided Minutes Spent on Discharge: 40 Hospital Course: Per HPI: SHOLA PATTON, is a 32 F who presents presents with infection of her right foot over the past couple days.? Patient has a chronic ulcer over her fifth MTP that is been present there for years.? Patient is a known type II diabetic, takes only metformin and does not check her blood sugar presents with worsening redness over her right foot and swelling.? Was seen in the emergency room on the and had an x-ray that was unremarkable.? Today, her foot got more swollen.? Patient had an x-ray today that showed some small mount of air on the plantar aspect of her foot.? Patient received Unasyn in the emergency room and the hospital service was contacted for admission. Hospital Course: 1. Diabetic neuropathy with a diabetic foot infection and osteomyelitis? 32-year-old female who does not seem to be very compliant with her health care present at all with the wound anatomy going on there is. She was taken to the OR and had a wound debridement and a washout. Wound cultures grew MRSA and so infectious disease was consulted. They recommended 6 weeks of IV vancomycin given that the MRI demonstrated an osteo-. Would recommend continuing her metformin however her blood sugars while in the hospital were also significantly elevated into the 2-300 range therefore we also discharged her on insulin. I do recommend aggressive monitoring and titration as I would expect that the blood sugar would improve as the infection improves. I discussed with her the plan for discharge today she expressed understanding of the risk and benefits of going to the skilled nursing and is okay with going today. I did remind her that she has nonweightbearing on her right foot. Weight / BMI Weight Weight: 212 lb 15.465 oz Body Mass Index (BMI) 34.3 ABG / Lab / Microbiology Data Result Diagrams: 04/09/22 06:25 04/09/22 06:25 Laboratory: Laboratory Results - last 24 hr 04/08/22 16:34: POC Glucose 265 H 04/08/22 23:19: POC Glucose 276 H 04/09/22 06:25: WBC 7.5, RBC 3.73 L, Hgb 9.8 L, Hct 30.5 L, MCV 81.8, MCH 26.3 L , MCHC 32.1, RDW Std Deviation 38.9, RDW Coeff of John 13.0, Plt Count 478 H, MPV 8.8, Immature Gran % (Auto) 1.700 H, Neut % (Auto) 49.3, Lymph % (Auto) 35.8, [place] % (Auto) 9.2, Eos % (Auto) 3.2, Baso % (Auto) 0.8, Absolute Neuts (auto) 3.7, Absolute Lymphs (auto) 2.68, Nucleated RBC % 0 04/09/22 06:25: Sodium 138, Potassium 3.6, Chloride 102, Carbon Dioxide 28.0, Anion Gap 8, BUN 11, Creatinine 0.64, Estim Creat Clear Calc 120.32, Est GFR (MDRD) Af Amer 140, Est GFR (MDRD) Non-Af 116, BUN/Creatinine Ratio 17.2, Glucose 190 H, Calcium 8.7 04/09/22 06:35: POC Glucose 185 H 04/09/22 11:13: POC Glucose 281 H Microbiology: Microbiology 04/09/22 13:55 Nasal Secretion SARS-CoV-2 Antigen (Rapid) - Final 04/06/22 Unknown Incision/Surgical Site Gram Stain - Final 04/06/22 Unknown Incision/Surgical Site Wound Culture - Final Meth. resistant Staph. aureus 04/06/22 Unknown Incision/Surgical Site Anaerobic Culture - Final No anaerobic bacteria isolated. 04/06/22 Unknown Incision/Surgical Site Gram Stain - Final 04/06/22 Unknown Incision/Surgical Site Wound Culture - Preliminary No growth-Final to follow Meaningful Use Info Meaningful Use Diagnoses (Choose all that apply): None applicable Discharge Plan Admission Admit Date/Time: 04/06/22 15:40 Attending Provider: Marc Nick Primary Care Provider: Care Physician,No Primary Consulting Providers: Andres Matias ; Rickey Gifford ; Charles Green Instructions Patient Instructions: Journaling for Mental Health, Diabetic Retinopathy Risk Factors, Using a Blood Sugar Log, Long-Term Complications of Diabetes, High Blood Sugar (Hyperglycemia), Resources for People with Diabetes, Managing Type 2 Diabetes, How to Check Your Blood Sugar, Diabetes Foot Infections Tx, Diabetes Foot Injury Tx, Insulin How To Use Where Inject, Healthy Meals for Diabetes, Diabetes: Keeping Feet Healthy, Diabetes: Inspecting Your Feet, Diabetes: Caring for Your Body, Your Body's Response to Anxiety, Wound Infection Tx, Diabetes Manage Stress Discharge Orders/Prescriptions Prescriptions: New vancomycin in 0.9 % sodium chl 1.75 gram/500 mL solution 1.75 g IV Q12H 40 Days Qty: 77951 0RF Rx Instructions: stop date 05/18/22 dx: MRSA osteo weekly bmp, cbc, vanc trough, and esr. Fax to [phone] routine picc care per protocol HySept 0.25 % Solution 1 applic topical BID Qty: 0 0RF Protocol: *Topical Application Instructions APPLICATION INSTRUCTIONS: right foot/leg wounds insulin lispro [Humalog KwikPen Insulin] 100 unit/mL Insulin Pen See Protocol subcut ACHS Qty: 0 0RF Protocol: 5. Sliding Scale Insulin High Dosing Condition: 150-209 mg/dl = 3 units Condition: 210-259 mg/dl = 6 units Condition: 260-324 mg/dl = 9 units Condition: 325-374 mg/dl = 12 units Condition: 375-409 mg/dl = 14 units Condition: 410-449 mg/dl = 16 units Condition: Greater than 449 call physician Protocol Text: - Use for Total Daily Dose of Insulin 81-120 units - Very insulin resistant or septic patients HIGH DOSING ALGORITHM insulin glargine-yfgn 100 unit/mL (3 mL) Insulin Pen 35 unit subcut QHS Qty: 0 0RF Continued metformin 500 mg tablet 500 mg PO BID Qty: 60 1RF ondansetron HCl 4 mg tablet 4 mg PO Q8H PRN PRN (Reason: Nausea) Label Comments: TAKE 1 TABLET BY MOUTH EVERY 8 HOURS NEEDED FOR NAUSEA AND VOMITING polyethylene glycol 3350 17 gram powder in packet 17 g PO DAILY PRN (Reason: stool) Label Comments: USE 1 PACKET BY MOUTH EVERY DAY NEEDED DAILY FOR CONSTIPATION sennosides-docusate sodium [Stimulant Laxative Plus] 8.6-50 mg tablet 1 - 2 tab PO DAILY PRN (Reason: stool) Label Comments: TAKE 1 TO 2 TABLETS BY MOUTH EVERY 12 HOURS albuterol sulfate [Ventolin HFA] 90 mcg/actuation HFA aerosol inhaler INHALATION Q4H docusate sodium [Dulcolax Stool Softener (dss)] 100 mg capsule 100 mg PO BID PRN (Reason: stool) Discontinued sulfamethoxazole-trimethoprim [sulfamethoxazole-trimethoprim] 1 TABLET tablet 1 tab PO BID Qty: 20 0RF cephalexin [cephalexin] 500 MG capsule 500 mg PO Q6 Qty: 40 0RF Referrals / Follow Up: Care Physician,No Primary [Primary Care Provider] - Disposition Disposition (needs filled in before D/C Order can be placed): [facility]way Facility Charges/Coding Visit Charges Inpatient E&M: 26288 Disch Hosp
--- NOTE | 2022-04-09 14:52 | PN_ITS ---
Subjective Subjective Patient was seen today for follow up on right foot and leg. She is planning to go to nursing facility today. WBC normal. She is afebrile. She relates very minimal to no pain. No complaints. Objective Data Objective Data Vital Signs: Vital Signs Temp Pulse Resp BP Pulse Ox O2 Del Method 98 F 92 18 132/87 H 100 Room Air 04/09/22 12:00 04/09/22 12:00 04/09/22 12:00 04/09/22 12:00 04/09/22 12:00 04/09/22 12:00 Oxygen Delivery Method Room Air Weight: 96.6 kg Body Mass Index (BMI) 34.3 Intake & Output: Intake and Output for Last 24 Hours 04/07/22 04/08/22 04/09/22 23:59 23:59 23:59 Intake Total 1202.92 / 1202.92 2470 / 3270 850 / 850 Balance 1202.92 / 1202.92 2470 / 3270 850 / 850 Lab / Micro Data Result Diagrams: 04/09/22 06:25 04/09/22 06:25 Labs: Laboratory Results - last 24 hr 04/08/22 16:34: POC Glucose 265 H 04/08/22 23:19: POC Glucose 276 H 04/09/22 06:25: WBC 7.5, RBC 3.73 L, Hgb 9.8 L, Hct 30.5 L, MCV 81.8, MCH 26.3 L , MCHC 32.1, RDW Std Deviation 38.9, RDW Coeff of John 13.0, Plt Count 478 H, MPV 8.8, Immature Gran % (Auto) 1.700 H, Neut % (Auto) 49.3, Lymph % (Auto) 35.8, [place] % (Auto) 9.2, Eos % (Auto) 3.2, Baso % (Auto) 0.8, Absolute Neuts (auto) 3.7, Absolute Lymphs (auto) 2.68, Nucleated RBC % 0 04/09/22 06:25: Sodium 138, Potassium 3.6, Chloride 102, Carbon Dioxide 28.0, Anion Gap 8, BUN 11, Creatinine 0.64, Estim Creat Clear Calc 120.32, Est GFR (MDRD) Af Amer 140, Est GFR (MDRD) Non-Af 116, BUN/Creatinine Ratio 17.2, Glucose 190 H, Calcium 8.7 04/09/22 06:35: POC Glucose 185 H 04/09/22 11:13: POC Glucose 281 H Micro: Microbiology 04/09/22 13:55 Nasal Secretion SARS-CoV-2 Antigen (Rapid) - Final 04/06/22 Unknown Incision/Surgical Site Gram Stain - Final 04/06/22 Unknown Incision/Surgical Site Wound Culture - Final Meth. resistant Staph. aureus 04/06/22 Unknown Incision/Surgical Site Anaerobic Culture - Final No anaerobic bacteria isolated. 04/06/22 Unknown Incision/Surgical Site Gram Stain - Final 04/06/22 Unknown Incision/Surgical Site Wound Culture - Preliminary No growth-Final to follow Physical Exam Const alert, oriented x3 and no apparent distress Skin Skin Narrative: Right foot - reviewed today's photos - s/p I+D and debridement - down to fascia/muscle layer, tissues healthy and viable, there is some serous drainage, erythema continues to improve, I+D anterior leg down to subcutaneous tissue with tissues healthy and viable and some serous drainage - tissues healthy and viable and erythema significantly improved. There is less edema. Assessment & Plan Assessment/Plan (1) Diabetic foot infection: (2) Type 2 diabetes mellitus with foot ulcer: (3) Cellulitis and abscess of right lower extremity: (4) Non-pressure chronic ulcer of other part of right foot with necrosis of muscle: (5) Diabetes mellitus with diabetic polyneuropathy: PLAN: Plan Re-evaluation performed. s/p I+D and debridement right foot on 04/06/2020. Reviewed diagnostic data. WBC normal. Patient is afebrile at this time. Clinically foot and leg again improved today. Patient is on IV antibiotic - cultures + for MRSA - patient on Vancomycin - Dr. Green on consult. Wound care: Dakin's gauze wet to dry BID. Likely wound vac in future. Reviewed pre op right foot, ankle and tib/fib xrays - no evidence of osseous involvement, also there did not appear to be evidence of osseous involvement in the I+D / debridement procedure, however MRI has been ordered and obtained for further evaluation. It was noted there were osseous changes to the 5th metatarsal head and base of the proximal phalanx of the 5th toe c/w osteomyelitis. No weightbearing right foot. Keep right foot elevated. Patient planning to go to nursing facility. Podiatry will continue to follow.
--- NOTE | 2022-04-09 16:03 | NURSING ---
aware pt verbalized unable to establish self transport, [facility] ambulance called and arranged transport with wheelchair to be picked up at 1700
[2022-04-09 16:15] VITALS: BP 136/87; PULSE 89; RESP 18; TEMP 36.8; O2SAT 99
[2022-04-09 18:00] LABS: Bedside Glucose 251 mg/dL (74-106)
== END 2022-04-09 17:52 | disposition skilled nursing facility (03) | DRG 317 ==
LOC: ED 15:31 → MS3 16:11
PROVIDERS: Anesthesiology; Podiatrist; Emergency Provider Emergency Medicine; Visit Provider Family Medicine
PROC: 0J9Q0ZZ Drainage of Right Foot Subcutaneous Tissue and Fascia, Open Approach (ICD-10-PCS; principal; 2022-04-06 16:00)
DX: E11.621 Type 2 diabetes mellitus with foot ulcer (principal); M86.171 Other acute osteomyelitis, right ankle and foot; L02.415 Cutaneous abscess of right lower limb; L97.513 Non-pressure chronic ulcer of other part of right foot with necrosis of muscle; E11.42 Type 2 diabetes mellitus with diabetic polyneuropathy; B95.62 Methicillin resistant Staphylococcus aureus infection as the cause of diseases classified elsewhere; Z79.4 Long term (current) use of insulin; E11.65 Type 2 diabetes mellitus with hyperglycemia; E11.69 Type 2 diabetes mellitus with other specified complication; I10 Essential (primary) hypertension; F17.210 Nicotine dependence, cigarettes, uncomplicated; L03.115 Cellulitis of right lower limb; Z91.19 Patient's noncompliance with other medical treatment and regimen; Z79.84 Long term (current) use of oral hypoglycemic drugs; Z79.899 Other long term (current) drug therapy
CPT/HCPCS: 36415; 36569; 73590; 73610; 73630; 73718; 80048; 80053; 80202; 82009; 82962; 83036; 83605; 84703; 85025; 85652; 86140; 87040; 87070; 87075; 87077; 87186; 87205; 87426; 88304; 88305; 93005; 96365; 96366; 96367; 97162; 97802; 97803; 99283; 99284; J7030; J7040; J7050; J7120; A4216; J0295; J2405

== ENCOUNTER → 2022-04-10 | Outpatient (REF) | payer MEDICAID, SELFPAY ==
[2022-04-10 08:15] LABS: Anion Gap 5 (5-15); BUN 14 mg/dL (7-18); BUN/Creat Ratio 22.7 RATIO (10-20); Calcium,Total 8.9 mg/dL (8.5-10.1); Chloride 100 mmol/L (98-107); Cholesterol 143 mg/dL (200); Creatinine, Serum 0.62 mg/dL (0.55-1.02); EST Glomerular Filtration Rate 120 mL/min (>60); Est Glom Filt Rate - Afr Amer 146 mL/min (>60); Glucose 217 mg/dL (74-106); High Density Lipoprotein 23 mg/dL; Potassium 3.7 mmol/L (3.5-5.1); Prealbumin 11.5 mg/dL (20.0-40.0); Sodium Level 137 mmol/L (136-145); Triglycerides 170 mg/dL; Very Low Density Lipoprotein 34 mg/dL (5-40)
[2022-04-10 08:16] LABS: Erythrocyte Sedimentation Rate 58 mm/hr (0-30)
[2022-04-10 08:17] LABS: Hematocrit 31.8 % (37-47); Hemoglobin 10.2 g/dL (12.0-15.0); Mean Corp Hgb Conc 32.1 g/dL (32-36); Mean Corpuscular Hgb 26.5 pg (27.0-32.0); Mean Corpuscular Volume 82.6 fL (81-99); Mean Platelet Vol. 9.1 fl (6.2-12.0); Platelet Count 540 K/mm3 (150-450); RBC Distribution Width CV 13.2 % (11.6-14.6); RBC Distribution Width SD 39.7 fl (35.1-43.9); Red Blood Count 3.85 M/mm3 (4.2-5.4); White Blood Count 9.1 K/mm3 (4.4-11.0)
[2022-04-10 08:18] LABS: Vitamin B12 216 pg/mL (211-911); Vitamin D,25 Hydroxy 18.5 ng/mL
== END | disposition home or self-care (01) ==
LOC: OLS.SW1020 06:20
PROVIDERS: Visit Provider Internal Medicine
DX: E11.9 Type 2 diabetes mellitus without complications (principal)
CPT/HCPCS: 80048; 80061; 82306; 82607; 84134; 85027; 85652

== ENCOUNTER → 2022-04-13 | Outpatient (REF) | payer MEDICAID, SELFPAY ==
[2022-04-13 10:19] LABS: Erythrocyte Sedimentation Rate 90 mm/hr (0-30)
[2022-04-13 10:21] LABS: Hematocrit 36.6 % (37-47); Hemoglobin 11.5 g/dL (12.0-15.0); Mean Corp Hgb Conc 31.4 g/dL (32-36); Mean Corpuscular Hgb 26.6 pg (27.0-32.0); Mean Corpuscular Volume 84.7 fL (81-99); Mean Platelet Vol. 9.2 fl (6.2-12.0); Platelet Count 609 K/mm3 (150-450); RBC Distribution Width CV 13.4 % (11.6-14.6); RBC Distribution Width SD 41.8 fl (35.1-43.9); Red Blood Count 4.32 M/mm3 (4.2-5.4)
[2022-04-13 11:14] LABS: Anion Gap 9 (5-15); BUN 13 mg/dL (7-18); BUN/Creat Ratio 18.8 RATIO (10-20); Calcium,Total 9.4 mg/dL (8.5-10.1); Chloride 103 mmol/L (98-107); Creatinine, Serum 0.69 mg/dL (0.55-1.02); EST Glomerular Filtration Rate 106 mL/min (>60); Est Glom Filt Rate - Afr Amer 128 mL/min (>60); Glucose 188 mg/dL (74-106); Potassium 4.3 mmol/L (3.5-5.1); Sodium Level 137 mmol/L (136-145)
[2022-04-13 11:18] LABS: Vancomycin, Trough Level 19.3 ug/mL (5.0-15.0)
== END | disposition home or self-care (01) ==
LOC: OLS.SW1020 04:00
PROVIDERS: Referring Provider Internal Medicine; Visit Provider Internal Medicine
DX: I10 Essential (primary) hypertension (principal); E11.628 Type 2 diabetes mellitus with other skin complications; M86.171 Other acute osteomyelitis, right ankle and foot; Z79.899 Other long term (current) drug therapy
CPT/HCPCS: 36415; 80048; 80202; 85027; 85652

== ENCOUNTER → 2022-04-20 | Outpatient (REF) | payer MEDICAID, SELFPAY ==
[2022-04-20 11:41] LABS: Erythrocyte Sedimentation Rate 60 mm/hr (0-30)
[2022-04-20 11:48] LABS: Hematocrit 32.9 % (37-47); Hemoglobin 10.4 g/dL (12.0-15.0); Mean Corp Hgb Conc 31.6 g/dL (32-36); Mean Corpuscular Hgb 26.5 pg (27.0-32.0); Mean Corpuscular Volume 83.7 fL (81-99); Mean Platelet Vol. 9.6 fl (6.2-12.0); Platelet Count 509 K/mm3 (150-450); RBC Distribution Width CV 13.5 % (11.6-14.6); RBC Distribution Width SD 41.4 fl (35.1-43.9); Red Blood Count 3.93 M/mm3 (4.2-5.4); White Blood Count 9.3 K/mm3 (4.4-11.0)
[2022-04-20 12:33] LABS: Anion Gap 7 (5-15); BUN 10 mg/dL (7-18); BUN/Creat Ratio 16.3 RATIO (10-20); Calcium,Total 8.5 mg/dL (8.5-10.1); Chloride 104 mmol/L (98-107); Creatinine, Serum 0.61 mg/dL (0.55-1.02); EST Glomerular Filtration Rate 122 mL/min (>60); Est Glom Filt Rate - Afr Amer 147 mL/min (>60); Glucose 224 mg/dL (74-106); Potassium 3.7 mmol/L (3.5-5.1); Sodium Level 139 mmol/L (136-145)
[2022-04-20 12:42] LABS: Vancomycin, Trough Level 7.2 ug/mL (5.0-15.0)
== END | disposition home or self-care (01) ==
LOC: OLS.SW1020 05:00
PROVIDERS: Visit Provider Internal Medicine
DX: Z79.899 Other long term (current) drug therapy (principal)
CPT/HCPCS: 80048; 80202; 85027; 85652

== ENCOUNTER 2022-05-07 12:43 | Outpatient (CLI) | payer MEDICAID, SELFPAY ==
[2022-05-07 13:36] LABS: Basophil# 0.07 X10^3/uL; Eosinophil# 0.41 X10^3/uL; Hematocrit 39.1 % (37-47); Mean Corp Hgb Conc 33.2 g/dL (32-36); Mean Corpuscular Volume 81.3 fL (81-99); Monocyte# 0.58 X10^3/uL; NRBC Flagged by Analyzer 0 % (0-5); POSITIVE DIFFERENTIAL YES; Platelet Count 369 K/mm3 (150-450); RBC Distribution Width SD 41.1 fl (35.1-43.9); Red Blood Count 4.81 M/mm3 (4.2-5.4); White Blood Count 11.1 K/mm3 (4.4-11.0)
[2022-05-07 13:42] LABS: Differential Indicated SCAN CRITERIA MET
[2022-05-07 13:51] LABS: ALB/GLOB Ratio 0.7 RATIO (0.9-2.4); AST(SGOT) 10 U/L (15-37); Alanine Aminotransfer ALT/SGPT 23 U/L (13-56); Albumin, Serum 3.4 g/dL (3.2-5.0); Alkaline Phosphatase 76 U/L (45-117); Anion Gap 8 (5-15); BUN 15 mg/dL (7-18); BUN/Creat Ratio 17.4 RATIO (10-20); Calcium,Total 8.7 mg/dL (8.5-10.1); Chloride 101 mmol/L (98-107); Creatinine, Serum 0.86 mg/dL (0.55-1.02); EST Glomerular Filtration Rate 82 mL/min (>60); Est Glom Filt Rate - Afr Amer 99 mL/min (>60); Glucose 207 mg/dL (74-106); Protein, Total 8.4 g/dL (6.4-8.2); Sodium Level 134 mmol/L (136-145)
[2022-05-07 14:30] LABS: Scan Smear per Review Criteria MANUAL DIFF
[2022-05-07 14:31] LABS: Lymphocyte 9 % (19-41); Monocyte 12 % (0-10); Neutrophil-Band 6 % (0-5); Neutrophil-Segmented 73 % (47-70)
[2022-05-07 14:32] LABS: Atypical Lymphocyte RARE %
[2022-05-07 14:33] LABS: Platelet Morphology LARGE; Red Cell Morphology NORM C+C NORMAL (NORM C&C)
[2022-05-07 14:36] LABS: Absolute Neutrophil Count 8.8 X10^3/uL (2.0-7.7); Neutrophil # 8.76 X10^3/uL (2.7-7.7)
[2022-05-07 14:37] LABS: Absolute Lymphocyte Count 0.99 X10^3/uL (0.83-4.51); Lymphocyte # 0.99 X10^3/ul (0.83-4.51)
[2022-05-08 15:53] LABS: Pathologist Review Reviewed
== END 2022-05-07 23:59 | disposition home or self-care (01) ==
LOC: LAB 12:46
PROVIDERS: Referring Provider Podiatrist; Visit Provider Podiatrist
DX: E11.621 Type 2 diabetes mellitus with foot ulcer (principal); L97.513 Non-pressure chronic ulcer of other part of right foot with necrosis of muscle; M86.171 Other acute osteomyelitis, right ankle and foot; E11.69 Type 2 diabetes mellitus with other specified complication; L03.115 Cellulitis of right lower limb
CPT/HCPCS: 36415; 80053; 85025

== ENCOUNTER → 2022-06-23 | Outpatient (CLI) | payer MEDICAID, SELFPAY ==
[2022-06-23 19:47] LABS: M R Staph aureus DNA By PCR POSITIVE (Negative); Probe Check PASS; Staph aureus DNA By PCR POSITIVE (Negative)
== END | disposition home or self-care (01) ==
PROVIDERS: Visit Provider Podiatrist
DX: L03.115 Cellulitis of right lower limb (principal)
CPT/HCPCS: 87640; 87205; 87077; 87070

== ENCOUNTER 2022-06-24 11:11 | Inpatient (IN) | payer MEDICAID, SELFPAY ==
[2022-06-24] VITALS (8 sets, daily range): BP systolic 137–160; BP diastolic 91–100; PULSE 90–118; RESP 15–26; TEMP 36.4–37.2; O2SAT 96–100; BMI 35.5; BMI 38.0
--- NOTE | 2022-06-24 12:11 | EKG12_ITS ---
Test Reason : SOB Blood Pressure : / mmHG Vent. Rate : 099 BPM Atrial Rate : 099 BPM P-R Int : 142 ms QRS Dur : 076 ms QT Int : 338 ms P-R-T Axes : 063 010 024 degrees QTc Int : 433 ms Normal sinus rhythm Normal ECG Confirmed by JUDSON BOYCE, VARSHA ([id number]), online editor KAYLA PRATHER ([id number]) on 06/26/2022 10:43:44 AM Referred By: Confirmed By:JUNI ROPER MD
[2022-06-24 12:49] LABS: Absolute Lymphocyte Count 3.15 X10^3/uL (0.83-4.51); Absolute Neutrophil Count 5.1 X10^3/uL (2.0-7.7); Basophil# 0.05 X10^3/uL; Basophil% 0.5 % (0-1); Eosinophil# 0.06 X10^3/uL; Eosinophils% 0.7 % (0-5); Hematocrit 38.4 % (37-47); Hemoglobin 12.8 g/dL (12.0-15.0); Lymphocyte # 3.15 X10^3/ul (0.83-4.51); Lymphocyte % 34.6 % (19-41); Mean Corp Hgb Conc 33.3 g/dL (32-36); Mean Corpuscular Hgb 27.1 pg (27.0-32.0); Mean Corpuscular Volume 81.2 fL (81-99); Mean Platelet Vol. 9.3 fl (6.2-12.0); Monocyte# 0.62 X10^3/uL; Monocyte% 6.8 % (0-10); NRBC Flagged by Analyzer 0 % (0-5); Neutrophil # 5.12 X10^3/uL (2.7-7.7); Neutrophil % 56.2 % (47-70); Platelet Count 345 K/mm3 (150-450); RBC Distribution Width CV 14.2 % (11.6-14.6); RBC Distribution Width SD 41.3 fl (35.1-43.9); Red Blood Count 4.73 M/mm3 (4.2-5.4); White Blood Count 9.1 K/mm3 (4.4-11.0)
[2022-06-24 13:04] LABS: ALB/GLOB Ratio 0.5 RATIO (0.9-2.4); AST(SGOT) 10 U/L (15-37); Alanine Aminotransfer ALT/SGPT 22 U/L (13-56); Albumin, Serum 2.8 g/dL (3.2-5.0); Alkaline Phosphatase 76 U/L (45-117); Anion Gap 6 (5-15); BUN 11 mg/dL (7-18); BUN/Creat Ratio 13.8 RATIO (10-20); Calcium,Total 9.1 mg/dL (8.5-10.1); Chloride 104 mmol/L (98-107); EST Glomerular Filtration Rate 90 mL/min (>60); Est Glom Filt Rate - Afr Amer 109 mL/min (>60); Estimated Creatinine Clearance 96.26 ml/min; Globulin 5.2 g/dL (2.2-4.2); Glucose 318 mg/dL (74-106); Potassium 3.9 mmol/L (3.5-5.1); Sodium Level 138 mmol/L (136-145)
--- NOTE | 2022-06-24 13:04 | RAD_ITS ---
STUDY: X-RAY - RIGHT FOOT CLINICAL: Female, 32 years old. Pain, ulcer TECHNIQUE: 3 view(s) of the foot. COMPARISON: None. FINDINGS: There is a plantar calcaneal spur. Normal visualized subtalar, talonavicular, calcaneocuboid, tarsal and tarsometatarsal articulations. Normal metatarsi. Normal metatarsophalangeal joint of the great toe. Normal tibial and fibular sesamoid bones. Normal interphalangeal joint of the great toe. Normal phalanges of the great toe. Normal second through fifth metatarsophalangeal joints. Normal interphalangeal joints and phalanges of the lesser toes. Soft tissue ulceration overlying the lateral aspect of the head of the fifth metatarsal. RAD/Foot min 3 Views IMPRESSION: Soft tissue ulceration overlying the lateral aspect of the distal head of the fifth metatarsal. Electronically Signed: Bernard Sadler MD at 13:29 EST ,
[2022-06-24 13:05] LABS: Lactic Acid 4.8 mmol/L (0.4-1.9)
--- NOTE | 2022-06-24 13:50 | EDS_ITS ---
HPI History of Present Illness Chief Complaint: Wound Narrative Narrative: 32-year-old female past medical history of diabetes, had surgery performed by Dr. Matias with podiatry where she states he opened up the plantar aspect of her midfoot because of infection. She has had an ulceration on the right side of her foot for years. She states that she had been admitted before and treated for her foot infection with vancomycin. She presents to the emergency department today at his advice. He had seen her in the office yesterday and was concerned about pain, swelling and redness on the lateral aspect of her right foot near the fifth metatarsal. He would like her to have x-rays and blood work performed and admitted to the hospital for possible surgery because of a diabetic foot ulcer and infection. He states that she was treated for 6 weeks for osteomyelitis additionally. She denies any fevers or chills. No nausea or vomiting. She does not have a large amount of pain as she has a diabetic foot neuropathy and has been walking on her right foot. PFSH PFSH Medical History Anxiety Asthma Constipation Depression Diabetes Hypertension Smoker Home Medications albuterol sulfate 90 mcg/actuation aerosol inhaler (Ventolin HFA) 1 inh inhalation Q4H 04/06/22 [History Last Taken 04/06/22] docusate sodium 100 mg capsule (Dulcolax Stool Softener (docusate)) 100 mg PO BID PRN stool 04/06/22 [History Last Taken 3 Months Ago ~01/04/22] sennosides 8.6 mg-docusate sodium 50 mg tablet (Stimulant Laxative Plus) 1 - 2 tab PO DAILY PRN stool 04/06/22 [History Last Taken 1 Month Ago ~03/06/22] insulin glargine-yfgn 100 unit/mL (3 mL) subcutaneous pen 35 unit (0.35 mL) subcut QHS #0 mL 04/09/22 [Rx Last Taken Unknown] insulin lispro 100 unit/mL subcutaneous pen (Humalog KwikPen (U-100) Insulin) See Protocol subcut ACHS #0 mL 04/09/22 [Rx Last Taken Unknown] metformin 500 mg tablet 1,000 mg PO BID 06/24/22 [History Last Taken Unknown] Allergy/AdvReac Type Severity Reaction Status Date / Time No Known Allergies Allergy Verified 06/24/22 11:13 Family History Other Bleeding disorder Cancer Diabetes Hypertension Social History Smoking Status: Current some day smoker tobacco type: cigarettes alcohol intake: never substance use type: does not use what type of physical activity do you participate in: none ROS ROS ED ROS Narrative Constitutional: No fever, no chills. HEENT: No sore throat. No neck pain. No loss of vision. No rhinorrhea. Cardiovascular: No chest pain. No palpitations. No pedal edema. Respiratory: No cough, no shortness of breath. Abdominal: No abdominal pain. No nausea. No vomiting. Genitourinary: No dysuria. No hematuria. Musculoskeletal: No myalgias. No arthralgias. Neurologic: No headaches. No dizziness. No lightheadedness. Skin: No rash. Positive diabetic foot ulceration right foot. Psychiatric: No depression. No anxiety. EXAM Physical Exam Narrative Exam Narrative: Afebrile. Vital signs noted. Nontoxic-appearing. HEENT: Normocephalic. Atraumatic. PERRL, EOMI. Neck soft and supple. No point tenderness or step off. Cardiovascular: Regular rate and rhythm. No murmurs, rubs, or gallops appreciated. Respiratory: No tachypnea. Lungs clear to auscultation bilaterally. Gastrointestinal: Abdomen soft, nontender, with normoactive bowel sounds. No rebound or guarding. Neurological: Awake. Alert. Nonfocal, nonlateralizing. Skin: No rash. Inspection of the right foot reveals mild swelling with erythema over the fifth metatarsal. There is a ulceration at the head of the fifth metatarsal noted without fluctuance or purulent drainage. Musculoskeletal: No pedal edema. Full range of motion extremities. Const Vital Signs: 06/24/22 11:12 06/24/22 13:26 06/24/22 13:27 Temperature 97.6 F L Temperature Source Temporal Pulse Rate 118 H 97 Respiratory Rate 16 26 H Blood Pressure 160/100 H 137/91 H Blood Pressure Mean 120 106 Pulse Ox 100 98 97 Oxygen Delivery Method Room Air Room Air Room Air 06/24/22 13:55 Temperature 98 F Temperature Source Temporal Pulse Rate 105 H Respiratory Rate 17 Blood Pressure 144/95 H Blood Pressure Mean 111 Pulse Ox 96 Oxygen Delivery Method Room Air MDM MDM MDM Narrative Medical decision making narrative: Sepsis work-up was pursued. She has normal white count at 9.1, hemoglobin normal at 12.8 with platelet count of 345. Electrolyte panel is grossly unremarkable with a normal BUN and creatinine. Glucose elevated at 318 consistent with her diabetes but she has a normal anion gap of 6. Lactic acid is elevated at 4.8. She will be bolused normal saline. Foot x-ray interpreted by myself does not reveal any evidence of bony destruction consistent with osteomyelitis. There is a noted foot ulceration/skin ulceration. No air in the tissue. At this point in time, she was started on vancomycin and Zosyn as requested by podiatry as she has a history of MRSA. Patient will be discussed with the hospitalist for admission. I discussed the patient with Dr. Rao. Patient is in stable condition. Lab Data Attestation: I reviewed the patient's lab results. Labs: Laboratory Results - last 24 hr 06/24/22 06/24/22 06/24/22 12:20 12:20 12:20 WBC 9.1 RBC 4.73 Hgb 12.8 Hct 38.4 MCV 81.2 MCH 27.1 MCHC 33.3 RDW Std Deviation 41.3 RDW Coeff of John 14.2 Plt Count 345 MPV 9.3 Immature Gran % (Auto) 1.200 H Neut % (Auto) 56.2 Lymph % (Auto) 34.6 [place] % (Auto) 6.8 Eos % (Auto) 0.7 Baso % (Auto) 0.5 Absolute Neuts (auto) 5.1 Absolute Lymphs (auto) 3.15 Nucleated RBC % 0 Sodium 138 Potassium 3.9 Chloride 104 Carbon Dioxide 28.0 Anion Gap 6 BUN 11 Creatinine 0.80 Estim Creat Clear Calc 96.26 Est GFR (MDRD) Af Amer 109 Est GFR (MDRD) Non-Af 90 BUN/Creatinine Ratio 13.8 Glucose 318 H Lactic Acid 4.8 H* Calcium 9.1 Total Bilirubin 0.30 AST 10 L ALT 22 Alkaline Phosphatase 76 Total Protein 8.0 Albumin 2.8 L Globulin 5.2 H Albumin/Globulin Ratio 0.5 L Radiography Diagnostic Testing: Clinical Impression(s) from Imaging Studies Foot X-Ray 06/24/22 13:04 IMPRESSION: Soft tissue ulceration overlying the lateral aspect of the distal head of the fifth metatarsal. Electronically Signed: Bernard Sadler MD at 13:29 EST , Discharge Plan Dx/Rx/DC Orders Clinical Impression: Diabetes mellitus with diabetic polyneuropathy, Diabetic foot infection, Osteomyelitis, Lactic acidosis Disposition Disposition: Acute Care Hospital [facility]
--- NOTE | 2022-06-24 14:02 | HP.PCM.HOS_ITS ---
HPI - General General Date of Admission: 06/24/22 Date of Service: 06/24/22 Chief Complaint: diabetic foot infection HPI Narrative SHOLA PATTON, is a 32 F with a PMH as outlined who presents via the ED with a complaint of wound on her right foot. She saw her mechatronics technician in the office one day before admission and he was concerned about the pain, redness and swelling on the lateral aspect of her right foot. She had surgery done on the right foot done recently and was placed on vancomycin. He reviewed her in the office the day before this presentation and recommended she comes to the ED for evaluation. She denied any fever, chills, cough, chest pain, palpitations, dizziness, nausea, vomiting or diarrhea. Review of systems is otherwise negative. Vitals in the ED were BP of 144/95, MD of 105, RR of 17 and temp of 98F, saturating at 96% on room air. CBC showed wbc of 9.1 but was otherwise unremarkable. CHemistry was also unremarkable; lactic acid was 4.8 and glucose was 318. Foot xray showed soft tissue ulceration overlying the lateral aspect of the distal head of the 5th metatarsal. She is being admitted to be managed for right diabetic foot ulceration, with concern for osteomyelitis. PFSH Medical History Anxiety Asthma Constipation Depression Diabetes Hypertension Smoker Home Medications albuterol sulfate 90 mcg/actuation aerosol inhaler (Ventolin HFA) 1 inh inhalation Q4H SOB 04/06/22 [History Last Taken 06/24/22] docusate sodium 100 mg capsule (Dulcolax Stool Softener (docusate)) 100 mg PO BID PRN stool 04/06/22 [History Last Taken 06/24/22] metformin 500 mg tablet 1,000 mg PO BID DM 06/24/22 [History Last Taken 06/11 10/31] Allergy/AdvReac Type Severity Reaction Status Date / Time No Known Allergies Allergy Verified 06/24/22 11:13 Family History Other Bleeding disorder Cancer Diabetes Hypertension Surgical History (Updated 06/24/22 @ 14:34 by Mindy Cuellar) Hx of foot surgery Social History Smoking Status: Current some day smoker tobacco type: cigarettes alcohol intake: never substance use type: does not use what type of physical activity do you participate in: none ROS Constitutional Constitutional: Denies anorexia, chills, fatigue, fever(s), malaise or weakness Eyes Eyes: Denies change in vision ENT HEENT: Denies dysphagia, headache(s) or sore throat Cardiovascular Cardiovascular: Denies chest pain, dyspnea on exertion, edema, lightheadedness, orthopnea or syncope Respiratory/Chest Respiratory/Chest: Denies cough, dyspnea, shortness of breath at rest or shortness of breath with exertion Gastrointestinal Gastrointestinal: Denies constipation, diarrhea, nausea or vomiting Genitourinary Genitourinary: Denies burning urination or dysuria Musculoskeletal Musculoskeletal: Denies arthralgias Neurologic Neurologic: Denies confusion, dizziness, focal weakness, headache(s) or syncope Psychiatric Psychiatric: Denies anxiety Endocrine Endocrinology: Denies change in body appearance Hematologic/Lymphatic Hematologic/Lymphatic: Denies anemia Vital Signs Vital Signs Vital Signs: 06/24/22 11:12 06/24/22 13:26 06/24/22 13:27 Temperature 97.6 F L Temperature Source Temporal Pulse Rate 118 H 97 Respiratory Rate 16 26 H Blood Pressure 160/100 H 137/91 H Blood Pressure Mean 120 106 Pulse Ox 100 98 97 Oxygen Delivery Method Room Air Room Air Room Air 06/24/22 13:55 Temperature 98 F Temperature Source Temporal Pulse Rate 105 H Respiratory Rate 17 Blood Pressure 144/95 H Blood Pressure Mean 111 Pulse Ox 96 Oxygen Delivery Method Room Air Weight Weight: 220 lb Body Mass Index (BMI) 35.5 Physical Exam Const alert, oriented x3 and no apparent distress General Appearance: cooperative HEENT normocephalic, head/scalp atraumatic, hearing grossly normal bilaterally and moist oral mucous membranes Mouth: oral and palatal mucosa normal Eyes PERRL, EOMs intact bilaterally and conjunctivae normal Neck no lymphadenopathy, supple and no JVD Resp normal respiratory effort, no retractions and clear to auscultation bilaterally Cardio regular rate, regular rhythm, S1 normal heart sound, S2 normal heart sound and no murmurs GI normal to inspection, nondistended, normoactive bowel sounds, soft to palpation, non-tender and non-distended Extremity Extremity Narrative: right foot wrapped in bandage Neuro oriented x3, CN's II-XII intact bilaterally, moves all extremities and no focal motor deficits Sensorium / Orientation: awake and alert Motor Exam: strength 5/5 throughout Psych affect normal Results Lab / Micro Data Result Diagrams: 06/24/22 12:20 06/24/22 12:20 Labs: Laboratory Results - last 24 hr 06/24/22 12:20: WBC 9.1, RBC 4.73, Hgb 12.8, Hct 38.4, MCV 81.2, MCH 27.1, MCHC 33.3, RDW Std Deviation 41.3, RDW Coeff of John 14.2, Plt Count 345, MPV 9.3, Immature Gran % (Auto) 1.200 H, Neut % (Auto) 56.2, Lymph % (Auto) 34.6, [place] % (Auto) 6.8, Eos % (Auto) 0.7, Baso % (Auto) 0.5, Absolute Neuts (auto) 5.1, Absolute Lymphs (auto) 3.15, Nucleated RBC % 0 06/24/22 12:20: Sodium 138, Potassium 3.9, Chloride 104, Carbon Dioxide 28.0, Anion Gap 6, BUN 11, Creatinine 0.80, Estim Creat Clear Calc 96.26, Est GFR (MDRD) Af Amer 109, Est GFR (MDRD) Non-Af 90, BUN/Creatinine Ratio 13.8, Glucose 318 H, Calcium 9.1, Total Bilirubin 0.30, AST 10 L, ALT 22, Alkaline Phosphatase 76, Total Protein 8.0, Albumin 2.8 L, Globulin 5.2 H, Albumin/Globulin Ratio 0.5 L 06/24/22 12:20: Lactic Acid 4.8 H* Radiology Impression Foot X-Ray 06/24/22 13:04 IMPRESSION: Soft tissue ulceration overlying the lateral aspect of the distal head of the fifth metatarsal. Electronically Signed: Bernard Sadler MD at 13:29 EST , Assessment & Plan Assessment/Plan (1) Lactic acidosis: (2) Cellulitis and abscess of right lower extremity: (3) Diabetes mellitus with diabetic polyneuropathy: PLAN: Plan #RIght diabetic foot ulcer * admit to med surg * had previously had surgery on right foot, and was on vancomycin. However, had worsening redness and pain, so there is concern for osteomyelitis * admit and start on IV vancomycin and zosyn * get MRI of the right foot to evaluate for osteomyelitis * consult podiatry * PT/OT consult * wound care consult * #TYpe 2 diabetes mellitus with peripheral neuropathy * on lantus 35 units; says she has not been taking it, and has only been taking her metformin. She says she was on it when she was in the assisted, but she didnt know she was supposed to continue using it. She has only been taking her metformin. * last A1C was 10 in March 2022 * A1C today is 10.6 * ISS. Accuchecks ACHS * hold metformin * DVT prophylaxis: lovenox Charges/Coding Visit Charges Inpatient E&M: 36635 Init Hosp L3
[2022-06-24] MEDS: 0.9% Normal Saline 1,000 ML 999 ML IV (14:04)
--- NOTE | 2022-06-24 14:07 | ED.RN ---
sepsis alert activated. ed dr feel this isn't sepsis. sepsis checklist canceled as ordered by ed dr. ana russo, rn [id number]
[2022-06-24 15:23] LABS: Mucous, Urine 0 SEEN /hpf (<or=2+); White Blood Cells 0 SEEN /hpf (0-5)
[2022-06-24 15:29] LABS: Color, Urine Yellow (Yellow); Glucose, Dipstick 1000 mg/dl (Normal); Ketone-Dipstick 15 mg/dl (Negative); Leukocyte Esterase-Dipstick Negative /ul (Negative); Nitrite-Dipstick Negative (Negative); Occult Blood-Urine 25 /ul (Negative); Protein-Dipstick 15 mg/dl (Negative); Specific Gravity, Urine 1.025 (1.002-1.030); Urine Bilirubin Dipstick Negative (Negative); Urine Clarity Sl. Cloudy (Clear); Urine Urobilinogen Normal (Normal)
[2022-06-24 15:44] LABS: Hemoglobin A1c 10.6 % (3.8-5.6)
[2022-06-24 16:32] LABS: Reflex Lactate? Y
[2022-06-24 17:14] LABS: Red Blood Cells-Urine 10-25 SEEN /hpf (0-5)
[2022-06-24 17:15] LABS: Bacteria RARE /hpf (None Seen); Squamous Epithelial Cells - UA 5-10 SEEN /hpf (5-10)
--- NOTE | 2022-06-24 17:29 | PCM.RX.CS ---
Consult Pharmacy has been consulted to manage selected antiobiotic: Vancomycin Type of Consult: New start Suspected Infection: Other - DIABETIC FOOT ULCER Labs: Sodium 138 mmol/L (136-145) 06/24/22 12:20 Potassium 3.9 mmol/L (3.5-5.1) 06/24/22 12:20 Chloride 104 mmol/L (98-107) 06/24/22 12:20 Carbon Dioxide 28.0 mmol/L (21.0-32.0) 06/24/22 12:20 Anion Gap 6 (5-15) 06/24/22 12:20 BUN 11 mg/dL (7-18) 06/24/22 12:20 Creatinine 0.80 mg/dL (0.55-1.02) 06/24/22 12:20 Est GFR (MDRD) Af Amer 109 mL/min (>60) 06/24/22 12:20 Est GFR (MDRD) Non-Af 90 mL/min (>60) 06/24/22 12:20 BUN/Creatinine Ratio 13.8 RATIO (10-20) 06/24/22 12:20 Glucose 318 mg/dL (74-106) H 06/24/22 12:20 Pharmacy Plan for Drug Dosing: NEW START IV VANCOMYCIN Consulting Physician: AARTI Indication: DIABETIC FOOT ULCER Goal Trough: 15-20 MG/DL SrCr: 0.8 MG/DL (06/24) CrCl: 96 ML/MIN Comments: PATIENT RECEIVED LOADING DOSE IN ER OF 2000MG @ 1507 Vancomycin Dose: WILL START 2000MG Q12H (STARTING 06/25 @ 0300) AND GET A TROUGH PRIOR TO 4TH DOSE OF REGIMEN PER POLICY. Pending Level: 06/26 @ 0230 Pharmacy Service will continue to monitor and adjust dosing as required.
[2022-06-24] MEDS: Insulin Lispro 100 UNIT/ML INSULN.PEN SC ×2 (17:31→21:59)
[2022-06-24 17:40] LABS: Bedside Glucose 200 mg/dL (74-106)
--- NOTE | 2022-06-24 17:45 | PCM.CONS.GEN ---
Assessment & Plan Assessment/Plan (1) Type 2 diabetes mellitus with foot ulcer: (2) Diabetic foot infection: (3) Cellulitis of foot, right: (4) Osteomyelitis: PLAN: Plan Evaluation performed. Reviewed diagnostic data. There is ulceration and concern for residual osteomyelitis of the right 5th metatarsal and to the toe. We discussed the options. Given findings with history of recurrent infections we will plan to proceed with right foot debridement with removal of 5th metatarsal head and possible 5th toe as well. New MRI was ordered for further evaluation. The OR was called and we were able to add this surgery on for Wednesday morning for 715am. A culture was obtained yesterday and it is positive for MRSA on PCR. Patient is on IV antibiotics - Vanc and Zosyn. Wound care for now: betadine, gauze, kerlix and shawna dressing. 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 Podiatry will continue to follow. Thank you for consultation. HPI Consult Data Date of Consult: 06/24/22 HPI Narrative Reason for Consultation: Right foot infection HPI Narrative: SHOLA PATTON, is a 32 F who presents with right foot infection. Patient had I+D debridement right foot Mar 2022, had MRSA, and was treated for osteomyelitis of the right 5th toe and 5th metatarsal head. site was healing well but she has been walking on foot and developed a new wound to the lateral right 5th metatarsal head, and now it is red, swollen, drainage with positive MRSA. Patient has uncontrolled diabetes - ha1c is 10.6. Patient has no pain as she has diabetic neuropathy. Patient presented for further management. She has been started on Vanc and Zosyn. [facility] Medical History Anxiety Asthma Constipation Depression Diabetes Hypertension Smoker Home Medications albuterol sulfate 90 mcg/actuation aerosol inhaler (Ventolin HFA) 1 inh inhalation Q4H SOB 04/06/22 [History Last Taken 06/24/22] docusate sodium 100 mg capsule (Dulcolax Stool Softener (docusate)) 100 mg PO BID PRN stool 04/06/22 [History Last Taken 06/24/22] metformin 500 mg tablet 1,000 mg PO BID DM 06/24/22 [History Last Taken 06/24/22] Allergy/AdvReac Type Severity Reaction Status Date / Time No Known Allergies Allergy Verified 06/24/22 11:13 Family History Other Bleeding disorder Cancer Diabetes Hypertension Surgical History (Updated 06/24/22 @ 14:34 by Mindy Cuellar) Hx of foot surgery Social History Smoking Status: Current some day smoker tobacco type: cigarettes alcohol intake: never substance use type: does not use what type of physical activity do you participate in: none Physical Exam Narrative Right foot with large ulceration to the lateral 5th metatarsal head/5th MTPJ probes close to bone and joint, there is combination of granular and nonviable tissue to the wound, there is some serosanguineous drainage, there is some localized erythema, and edema present, no visible abscess, no crepitus, no streaking, no maloder present. No other open lesions noted to the right foot. Sensation diminished c/w chronic peripheral neuropathy. CFT < 2 seconds to all toes on the right foot, and no evidence of ischemia to the foot. Const alert, oriented x3 and no apparent distress Lab / Micro Data Result Diagrams: 06/24/22 12:20 06/24/22 12:20 Labs: Laboratory Results - last 24 hr 06/24/22 12:20: WBC 9.1, RBC 4.73, Hgb 12.8, Hct 38.4, MCV 81.2, MCH 27.1, MCHC 33.3, RDW Std Deviation 41.3, RDW Coeff of John 14.2, Plt Count 345, MPV 9.3, Immature Gran % (Auto) 1.200 H, Neut % (Auto) 56.2, Lymph % (Auto) 34.6, [place] % (Auto) 6.8, Eos % (Auto) 0.7, Baso % (Auto) 0.5, Absolute Neuts (auto) 5.1, Absolute Lymphs (auto) 3.15, Nucleated RBC % 0 06/24/22 12:20: Sodium 138, Potassium 3.9, Chloride 104, Carbon Dioxide 28.0, Anion Gap 6, BUN 11, Creatinine 0.80, Estim Creat Clear Calc 96.26, Est GFR (MDRD) Af Amer 109, Est GFR (MDRD) Non-Af 90, BUN/Creatinine Ratio 13.8, Glucose 318 H, Calcium 9.1, Total Bilirubin 0.30, AST 10 L, ALT 22, Alkaline Phosphatase 76, Total Protein 8.0, Albumin 2.8 L, Globulin 5.2 H, Albumin/Globulin Ratio 0.5 L 06/24/22 12:20: Lactic Acid 4.8 H* 06/24/22 12:20: Hemoglobin A1c 10.6 H 06/24/22 15:15: Urine Color Yellow, Urine Clarity Sl. Cloudy, Urine pH 5.0, Ur Specific [place] 1.025, Urine Protein 15 H, Urine Glucose (UA) 1000 H, Urine Ketones 15 H, Urine Occult Blood 25 H, Urine Nitrite Negative, Urine Bilirubin Negative, Urine Urobilinogen Normal, Ur Leukocyte Esterase Negative, Urine RBC 10-25 SEEN, Urine WBC 0 SEEN, Ur Squamous Epith Cells 5-10 SEEN, Urine Bacteria RARE, Urine Mucus 0 SEEN 06/24/22 17:08: POC Glucose 200 H Radiology Impression Foot X-Ray 06/24/22 13:04 IMPRESSION: Soft tissue ulceration overlying the lateral aspect of the distal head of the fifth metatarsal. Electronically Signed: Bernard Sadler MD at 13:29 EST ,
--- NOTE | 2022-06-24 19:14 | MRI_ITS ---
EXAM: MR RIGHT LOWER EXTREMITY WITHOUT INTRAVENOUS CONTRAST, FOOT CLINICAL INDICATION: osteomyelitis TECHNIQUE: Multiplanar and multisequence MR images of the right foot without intravenous contrast. This report was created using FTBpro report generation technology. COMPARISON: X-ray 06/24/2022. FINDINGS: FLUID: Small effusion in the first metatarsophalangeal joint. BONES/JOINTS: Marrow edema in the fifth metatarsal head. Mild cortical thinning of the fifth metatarsal head. This is concerning for early osteomyelitis. Marrow signal is otherwise unremarkable. No fracture or dislocation. Soft tissue defect along the lateral aspect of the fifth metatarsal head consistent with ulceration. Moderate intermediate signal around the fifth metatarsal head consistent with inflammatory change. No joint effusion. OTHER SOFT TISSUES: Marked intermediate soft tissue signal in the plantar soft tissues at the level of the distal third metatarsal. Mild dorsal soft tissue edema. No organized collection. MRI/Lower Ext/No Jt/w/o IMPRESSION: 1. Findings concerning for osteomyelitis of the fifth metatarsal head. 2. Soft tissue abnormality at the fifth metatarsal head and plantar soft tissues at the third metatarsal. No obvious soft tissue collection. Postcontrast sequences may be helpful for increased specificity. Electronically Signed: Romana Lerma MD at 20:49 EST Reading Location ID and State: [id number] / Tel , Service support ,
[2022-06-24] MEDS: Insulin Glargine-YFGN 100 UNIT/ML Pen 35 UNIT SC (22:00)
[2022-06-24 23:35] LABS: Bedside Glucose 281 mg/dL (74-106)
[2022-06-25 03:57] VITALS: BP 134/99; PULSE 96; RESP 18; TEMP 36.7; O2SAT 97
[2022-06-25] MEDS: Insulin Lispro 100 UNIT/ML INSULN.PEN SC ×4 (06:37→21:26)
[2022-06-25 07:00] LABS: Bedside Glucose 263 mg/dL (74-106)
[2022-06-25 07:20] LABS: Absolute Lymphocyte Count 3.27 X10^3/uL (0.83-4.51); Absolute Neutrophil Count 4.8 X10^3/uL (2.0-7.7); Basophil# 0.06 X10^3/uL; Basophil% 0.7 % (0-1); Eosinophil# 0.11 X10^3/uL; Eosinophils% 1.2 % (0-5); Hematocrit 37.9 % (37-47); Hemoglobin 12.1 g/dL (12.0-15.0); Lymphocyte # 3.27 X10^3/ul (0.83-4.51); Lymphocyte % 36.4 % (19-41); Mean Corp Hgb Conc 31.9 g/dL (32-36); Mean Corpuscular Hgb 26.2 pg (27.0-32.0); Mean Platelet Vol. 9.5 fl (6.2-12.0); Monocyte# 0.63 X10^3/uL; NRBC Flagged by Analyzer 0 % (0-5); Neutrophil # 4.77 X10^3/uL (2.7-7.7); Neutrophil % 53.1 % (47-70); Platelet Count 353 K/mm3 (150-450); RBC Distribution Width CV 14.1 % (11.6-14.6); RBC Distribution Width SD 41.4 fl (35.1-43.9); Red Blood Count 4.62 M/mm3 (4.2-5.4)
[2022-06-25 07:42] LABS: Anion Gap 7 (5-15); BUN 10 mg/dL (7-18); BUN/Creat Ratio 13.1 RATIO (10-20); Calcium,Total 8.6 mg/dL (8.5-10.1); Chloride 104 mmol/L (98-107); Creatinine, Serum 0.76 mg/dL (0.55-1.02); EST Glomerular Filtration Rate 95 mL/min (>60); Est Glom Filt Rate - Afr Amer 114 mL/min (>60); Estimated Creatinine Clearance 101.33 ml/min; Glucose 261 mg/dL (74-106); Potassium 4.3 mmol/L (3.5-5.1); Sodium Level 135 mmol/L (136-145)
[2022-06-25] MEDS: Enoxaparin 40 MG/0.4 ML Syringe SC (07:56)
[2022-06-25 09:37] VITALS: BP 130/98; PULSE 83; RESP 16; TEMP 36.9; O2SAT 100
--- NOTE | 2022-06-25 09:49 | WOUNDNOTE ---
wound photo: right foot
--- NOTE | 2022-06-25 09:49 | WOUNDNOTE ---
wound photo: right foot
--- NOTE | 2022-06-25 09:50 | WOUNDNOTE ---
wound photo: right foot
--- NOTE | 2022-06-25 10:05 | CASEMGMT ---
RYNE LUJAN COMMUNITY HEALTH DIRECTOR CM to room to meet with patient for initial transition planning/care coordination assessment. RYNE LUJAN introduced self and role at [facility]. Pt voices understanding and consents to assessment at this time. Pt sitting up in bed in no distress at this time. Pt is A/O at this time and answers all questions appropriately. Care providers, pharmacy, and demographics verified/updated at this time. PCP: Sophy Chi Specialists: Dr Matias Preferred Pharmacy: [facility] Retail Insurance: [employer] Prescription Benefit: yes LW/HPOA: Pt denies having a LW/DPOA and denies need for info regarding AD. She is aware, if she would like to complete in the future that appt can be made as an OP w/SW and has been given rac card. LNOK: Grandmother, Rhona Givens. Living Arrangements: Pt lives alone in a upstairs apt with 15 steps to enter with a rail on one side. Pt reports she is I in ADL's and denies concerns at home. Pt states she has been doing her own wound care/dressing changes/packing and feels comfortable w/doing them when she returns home. Pt states she has also been able to navigate up the stairs well, but she has been able to bear weight. Pt aware that she may be NWB status when she discharges home. She states she still feels she will be able to navigate the stairs even w/being NWB. Transportation: Pt has a license but does not have a car. Pt's grandma will take her home @ d/c or she can take the public bus, which will drop her off right by her apt. DME: Pt has a walker and functioning glucometer w/supplies. She denies need for further DME. HHC/SNF: [facility] Mar 2022. Pt states she does not wish to return to [facility] or another SNF. She would like to return home. She is aware she may need IV atb's @ discharge and she is willing to learn/administer them @ home. She is interested in HHC. Jazlyn, MS3 RYNE LUJAN, made aware. Pt takes oral diabetic medication. She is not on insulin. Pt states the hospitalist informed her that she needs to be on insulin. She was made aware [facility] nurses would provide education on insulin administration and HHC can provide ongoing diabetic/insulin education once she returns home. RYNE Pierre, made aware of need of education. Pt states no further concerns/needs. CM to follow. Advised pt to ask CM if any further question/concerns/needs arise, voices understanding. Plan: Home w/HHC for diabetic/insulin education, wound care, and possible IV atb's Nikole ANTONIO RN CM
--- NOTE | 2022-06-25 11:26 | CASEMGMT ---
Addendum entered by Jazlyn Lo 06/25/22 13:10: Faxed referral to [facility] at this time as well. Addendum entered by Jazlyn Lo 06/25/22 12:59: RN LE back into pt room, pt has chosen [facility] as first choice and states if they cannot accept she has no further preference. Referral sent to [facility] via [facility] at this time. Original Note: RN CM in to pt room and provided a list of [facility] providers including quality and resource use data and consistent with the patient?s preferred geographic region, medical needs, and insurance network were [facility]. Pt to review and RYNE LUJAN to check back for choices.
[2022-06-25 12:06] LABS: Bedside Glucose 253 mg/dL (74-106)
--- NOTE | 2022-06-25 12:35 | PN.HOSP_ITS ---
Subjective Subjective Patient seen and examined. She has no complaints this morning. Pain in her foot is well controlled. Review of systems otherwise negative. Past made hemodynamically stable. Objective Data Objective Data Vital Signs: Vital Signs Temp Pulse Resp BP Pulse Ox O2 Del Method 98.5 F 83 16 130/98 H 100 Room Air 06/25/22 09:37 06/25/22 09:37 06/25/22 09:37 06/25/22 09:37 06/25/22 09:37 06/25/22 09:37 Oxygen Delivery Method Room Air Weight: 236 lb Body Mass Index (BMI) 38.0 Intake & Output: Intake and Output for Last 24 Hours 06/23/22 06/24/22 06/25/22 23:59 23:59 23:59 Intake Total 1640 / 1640 640 / 640 Balance 1640 / 1640 640 / 640 Lab / Micro Data Result Diagrams: 06/25/22 06:45 06/25/22 06:45 Labs: Laboratory Results - last 24 hr 06/24/22 12:20: WBC 9.1, RBC 4.73, Hgb 12.8, Hct 38.4, MCV 81.2, MCH 27.1, MCHC 33.3, RDW Std Deviation 41.3, RDW Coeff of John 14.2, Plt Count 345, MPV 9.3, Immature Gran % (Auto) 1.200 H, Neut % (Auto) 56.2, Lymph % (Auto) 34.6, [place] % (Auto) 6.8, Eos % (Auto) 0.7, Baso % (Auto) 0.5, Absolute Neuts (auto) 5.1, Absolute Lymphs (auto) 3.15, Nucleated RBC % 0 06/24/22 12:20: Sodium 138, Potassium 3.9, Chloride 104, Carbon Dioxide 28.0, Anion Gap 6, BUN 11, Creatinine 0.80, Estim Creat Clear Calc 96.26, Est GFR (MDRD) Af Amer 109, Est GFR (MDRD) Non-Af 90, BUN/Creatinine Ratio 13.8, Glucose 318 H, Calcium 9.1, Total Bilirubin 0.30, AST 10 L, ALT 22, Alkaline Phosphatase 76, Total Protein 8.0, Albumin 2.8 L, Globulin 5.2 H, Albumin/Globulin Ratio 0.5 L 06/24/22 12:20: Lactic Acid 4.8 H* 06/24/22 12:20: Hemoglobin A1c 10.6 H 06/24/22 15:15: Urine Color Yellow, Urine Clarity Sl. Cloudy, Urine pH 5.0, Ur Specific [place] 1.025, Urine Protein 15 H, Urine Glucose (UA) 1000 H, Urine Ketones 15 H, Urine Occult Blood 25 H, Urine Nitrite Negative, Urine Bilirubin Negative, Urine Urobilinogen Normal, Ur Leukocyte Esterase Negative, Urine RBC 10-25 SEEN, Urine WBC 0 SEEN, Ur Squamous Epith Cells 5-10 SEEN, Urine Bacteria RARE, Urine Mucus 0 SEEN 06/24/22 17:06: Lactic Acid 3.0 H* 06/24/22 17:08: POC Glucose 200 H 06/24/22 21:58: POC Glucose 281 H 06/25/22 06:36: POC Glucose 263 H 06/25/22 06:45: WBC 9.0, RBC 4.62, Hgb 12.1, Hct 37.9, MCV 82.0, MCH 26.2 L, MCHC 31.9 L, RDW Std Deviation 41.4, RDW Coeff of John 14.1, Plt Count 353, MPV 9.5, Immature Gran % (Auto) 1.600 H, Neut % (Auto) 53.1, Lymph % (Auto) 36.4, [place] % (Auto) 7.0, Eos % (Auto) 1.2, Baso % (Auto) 0.7, Absolute Neuts (auto) 4.8, Absolute Lymphs (auto) 3.27, Nucleated RBC % 0 06/25/22 06:45: Sodium 135 L, Potassium 4.3, Chloride 104, Carbon Dioxide 24.0, Anion Gap 7, BUN 10, Creatinine 0.76, Estim Creat Clear Calc 101.33, Est GFR (MDRD) Af Amer 114, Est GFR (MDRD) Non-Af 95, BUN/Creatinine Ratio 13.1, Glucose 261 H, Calcium 8.6 06/25/22 11:33: POC Glucose 253 H Radiography Diagnostic Testing: Radiology Impression Foot X-Ray 06/24/22 13:04 IMPRESSION: Soft tissue ulceration overlying the lateral aspect of the distal head of the fifth metatarsal. Electronically Signed: Bernard Sadler MD at 13:29 EST , Lower Extremity MRI 06/24/22 19:14 IMPRESSION: 1. Findings concerning for osteomyelitis of the fifth metatarsal head. 2. Soft tissue abnormality at the fifth metatarsal head and plantar soft tissues at the third metatarsal. No obvious soft tissue collection. Postcontrast sequences may be helpful for increased specificity. Electronically Signed: Romana Lerma MD at 20:49 EST Reading Location ID and State: [id number] / Tel , Service support , Physical Exam Const alert, oriented x3 and no apparent distress General Appearance: cooperative HEENT normocephalic, head/scalp atraumatic, hearing grossly normal bilaterally and moist oral mucous membranes Head and Scalp: normocephalic Mouth: oral and palatal mucosa normal Eyes PERRL, EOMs intact bilaterally and conjunctivae normal Neck no lymphadenopathy, supple and no JVD Resp normal respiratory effort, no retractions, no use of accessory muscles and clear to auscultation bilaterally Cardio regular rate, regular rhythm, S1 normal heart sound, S2 normal heart sound and no murmurs GI normal to inspection, nondistended, normoactive bowel sounds, soft to palpation, non-tender and non-distended Extremity Extremity Narrative: right foot wrapped in bandage Neuro oriented x3, CN's II-XII intact bilaterally, moves all extremities and no focal motor deficits Sensorium / Orientation: awake and alert Motor Exam: strength 5/5 throughout Psych affect normal Assessment & Plan Assessment/Plan (1) Lactic acidosis: (2) Cellulitis and abscess of right lower extremity: (3) Diabetes mellitus with diabetic polyneuropathy: PLAN: Plan #RIght diabetic foot ulcer * had previously had surgery on right foot, and was on vancomycin. However, had worsening redness and pain, so there is concern for osteomyelitis * on IV vancomycin and zosyn * Podiatry on board and concerned about residual osteomyelitis of the right fifth metatarsal and to the toe. * MRI of the foot ordered and pending. * For right foot debridement with removal of the fifth metatarsal head and possible fifth toe as well on [place], 06/26/2022. * Culture done on outpatient basis was positive for MRSA on PCR. * Wound care on board. * PT/OT on board * * #TYpe 2 diabetes mellitus with peripheral neuropathy * on lantus 35 units but had not been compliant with it. * A1C today is 10.6 * ISS. Accuchecks ACHS * hold metformin * will refer to endocrinology on outpatient basis * will benefit from endocrinology referral upon discharge * DVT prophylaxis: lovenox Charges/Coding Visit Charges Inpatient E&M: 40282 Subs Hosp L2
--- NOTE | 2022-06-25 13:46 | PCM.PROGNOTE ---
Subjective Subjective Patient was seen today for follow up on right foot. Pain is controlled. No f/c/n/v. No new complaints. Objective Data Objective Data Vital Signs: Vital Signs Temp Pulse Resp BP Pulse Ox O2 Del Method 98.5 F 83 16 130/98 H 100 Room Air 06/25/22 09:37 06/25/22 09:37 06/25/22 09:37 06/25/22 09:37 06/25/22 09:37 06/25/22 09:37 Oxygen Delivery Method Room Air Weight: 107.1 kg Body Mass Index (BMI) 38.0 Intake & Output: Intake and Output for Last 24 Hours 06/23/22 06/24/22 06/25/22 23:59 23:59 23:59 Intake Total 1640 / 1640 640 / 640 Balance 1640 / 1640 640 / 640 Lab / Micro Data Result Diagrams: 06/25/22 06:45 06/25/22 06:45 Labs: Laboratory Results - last 24 hr 06/24/22 12:20: Hemoglobin A1c 10.6 H 06/24/22 15:15: Urine Color Yellow, Urine Clarity Sl. Cloudy, Urine pH 5.0, Ur Specific [place] 1.025, Urine Protein 15 H, Urine Glucose (UA) 1000 H, Urine Ketones 15 H, Urine Occult Blood 25 H, Urine Nitrite Negative, Urine Bilirubin Negative, Urine Urobilinogen Normal, Ur Leukocyte Esterase Negative, Urine RBC 10-25 SEEN, Urine WBC 0 SEEN, Ur Squamous Epith Cells 5-10 SEEN, Urine Bacteria RARE, Urine Mucus 0 SEEN 06/24/22 17:06: Lactic Acid 3.0 H* 06/24/22 17:08: POC Glucose 200 H 06/24/22 21:58: POC Glucose 281 H 06/25/22 06:36: POC Glucose 263 H 06/25/22 06:45: WBC 9.0, RBC 4.62, Hgb 12.1, Hct 37.9, MCV 82.0, MCH 26.2 L, MCHC 31.9 L, RDW Std Deviation 41.4, RDW Coeff of John 14.1, Plt Count 353, MPV 9.5, Immature Gran % (Auto) 1.600 H, Neut % (Auto) 53.1, Lymph % (Auto) 36.4, [place] % (Auto) 7.0, Eos % (Auto) 1.2, Baso % (Auto) 0.7, Absolute Neuts (auto) 4.8, Absolute Lymphs (auto) 3.27, Nucleated RBC % 0 06/25/22 06:45: Sodium 135 L, Potassium 4.3, Chloride 104, Carbon Dioxide 24.0, Anion Gap 7, BUN 10, Creatinine 0.76, Estim Creat Clear Calc 101.33, Est GFR (MDRD) Af Amer 114, Est GFR (MDRD) Non-Af 95, BUN/Creatinine Ratio 13.1, Glucose 261 H, Calcium 8.6 06/25/22 11:33: POC Glucose 253 H Radiography Diagnostic Testing: Radiology Impression Lower Extremity MRI 06/24/22 19:14 IMPRESSION: 1. Findings concerning for osteomyelitis of the fifth metatarsal head. 2. Soft tissue abnormality at the fifth metatarsal head and plantar soft tissues at the third metatarsal. No obvious soft tissue collection. Postcontrast sequences may be helpful for increased specificity. Electronically Signed: Romana Lerma MD at 20:49 EST Reading Location ID and State: [id number] / Tel , Service support , Physical Exam Narrative Right foot with large ulceration to the lateral 5th metatarsal head/5th MTPJ probes close to bone and joint, there is combination of granular and nonviable tissue to the wound, there is some serosanguineous drainage, there is some localized erythema which is improved, and edema present, no visible abscess, no crepitus, no streaking, no maloder present. Healing plantar incision with no evidence of infection (central forefoot) - No other open lesions noted to the right foot. Sensation diminished c/w chronic peripheral neuropathy. CFT < 2 seconds to all toes on the right foot, and no evidence of ischemia to the foot. Const alert, oriented x3 and no apparent distress Assessment & Plan Assessment/Plan (1) Type 2 diabetes mellitus with foot ulcer: (2) Diabetic foot infection: (3) Cellulitis of foot, right: (4) Osteomyelitis: PLAN: Plan Evaluation performed. Reviewed diagnostic data. There is ulceration and evidence of osteomyelitis to the 5th ray. We discussed the options. Given findings with history of recurrent infections we will plan to proceed with right foot debridement with removal of 5th metatarsal head and possible 5th toe as well. MRI has been reviewed and discussed findings with patient. The OR was called and we were able to add this surgery on for Wednesday morning for 715am. A culture was obtained yesterday and it is positive for MRSA on PCR. Patient is on IV antibiotics - Vanc and Zosyn. Wound care for now: betadine, gauze, kerlix and shawna dressing. Reviewed with patient the importance of proper blood sugar control to cotton ginner helper healing and optimize foot/ankle health. No weightbearing right foot. Podiatry will continue to follow..
--- NOTE | 2022-06-25 14:09 | NURSING ---
in to attempt 2nd iv line d/t antibiotics. pt initially won't answer nurse, doesn't make eye contact. updated on rationale and acknowledged pt frustration/anger. pt states she is refusing another IV and i don't want a picc line either. will notify .
[2022-06-25 14:13] VITALS: BP 134/95; PULSE 88; RESP 18; TEMP 37.2; O2SAT 99
--- NOTE | 2022-06-25 14:52 | NURSING ---
Pharmacy called and asid that they would make the zoysn a 30min infusion and I could change this 1400 dose now to be a 30 min infusion so she will still be ok for her 1500 vanc dose.
[2022-06-25 16:51] LABS: Bedside Glucose 266 mg/dL (74-106)
[2022-06-25 21:00] VITALS: BP 136/96; PULSE 105; RESP 18; TEMP 36.6; O2SAT 98
[2022-06-25] MEDS: Insulin Glargine-YFGN 100 UNIT/ML Pen 35 UNIT SC (21:26)
[2022-06-25 23:00] LABS: Bedside Glucose 302 mg/dL (74-106)
[2022-06-26] VITALS (10 sets, daily range): BP systolic 114–140; BP diastolic 79–93; PULSE 80–93; RESP 16–18; TEMP 36.2–37.2; O2SAT 94–98; BMI 38.1
[2022-06-26 02:19] LABS: Absolute Lymphocyte Count 3.28 X10^3/uL (0.83-4.51); Absolute Neutrophil Count 4.3 X10^3/uL (2.0-7.7); Basophil# 0.05 X10^3/uL; Basophil% 0.6 % (0-1); Eosinophil# 0.09 X10^3/uL; Eosinophils% 1.1 % (0-5); Hemoglobin 11.9 g/dL (12.0-15.0); Lymphocyte # 3.28 X10^3/ul (0.83-4.51); Mean Corp Hgb Conc 32.2 g/dL (32-36); Mean Corpuscular Hgb 26.4 pg (27.0-32.0); Mean Corpuscular Volume 82.2 fL (81-99); Mean Platelet Vol. 9.2 fl (6.2-12.0); Monocyte% 7.1 % (0-10); NRBC Flagged by Analyzer 0 % (0-5); Neutrophil # 4.27 X10^3/uL (2.7-7.7); Neutrophil % 50.8 % (47-70); Platelet Count 330 K/mm3 (150-450); RBC Distribution Width CV 14.1 % (11.6-14.6); RBC Distribution Width SD 41.4 fl (35.1-43.9); White Blood Count 8.4 K/mm3 (4.4-11.0)
[2022-06-26 02:57] LABS: Anion Gap 4 (5-15); BUN 13 mg/dL (7-18); BUN/Creat Ratio 16.9 RATIO (10-20); Calcium,Total 8.7 mg/dL (8.5-10.1); Chloride 104 mmol/L (98-107); Creatinine, Serum 0.77 mg/dL (0.55-1.02); EST Glomerular Filtration Rate 93 mL/min (>60); Est Glom Filt Rate - Afr Amer 113 mL/min (>60); Estimated Creatinine Clearance 100.01 ml/min; Glucose 273 mg/dL (74-106); Potassium 3.8 mmol/L (3.5-5.1); Sodium Level 135 mmol/L (136-145)
[2022-06-26 02:58] LABS: Vancomycin, Trough Level 14.3 ug/mL (5.0-15.0)
--- NOTE | 2022-06-26 04:55 | PCM.RX.CS ---
Consult Pharmacy has been consulted to manage selected antiobiotic: Vancomycin Type of Consult: Follow-up Labs: Sodium 135 mmol/L (136-145) L 06/26/22 02:10 Potassium 3.8 mmol/L (3.5-5.1) 06/26/22 02:10 Chloride 104 mmol/L (98-107) 06/26/22 02:10 Carbon Dioxide 27.0 mmol/L (21.0-32.0) 06/26/22 02:10 Anion Gap 4 (5-15) L 06/26/22 02:10 BUN 13 mg/dL (7-18) 06/26/22 02:10 Creatinine 0.77 mg/dL (0.55-1.02) 06/26/22 02:10 Est GFR (MDRD) Af Amer 113 mL/min (>60) 06/26/22 02:10 Est GFR (MDRD) Non-Af 93 mL/min (>60) 06/26/22 02:10 BUN/Creatinine Ratio 16.9 RATIO (10-20) 06/26/22 02:10 Glucose 273 mg/dL (74-106) H 06/26/22 02:10 Vancomycin Trough 14.3 ug/mL (5.0-15.0) 06/26/22 02:10 Goal Trough: 15-20 mcg/mL Pharmacy Plan for Drug Dosing: Pharmacy Service will continue to monitor and adjust dosing as required. TROUGH 14.3 @ 11.5 HRS. NO CHANGES, FOLLOW UP TROUGH IN 2 DAYS Follow-Up Labs: Trough Vancomycin Labs to be done on [date and time ordered]: 06/28 @ 9391
[2022-06-26 06:35] LABS: Bedside Glucose 275 mg/dL (74-106)
--- NOTE | 2022-06-26 06:55 | WOUNDNOTE ---
Pt off unit at this time for surgery.
[2022-06-26] MEDS: Insulin Lispro 100 UNIT/ML INSULN.PEN SC ×4 (07:05→22:36)
--- NOTE | 2022-06-26 07:15 | BON_PTH ---
PATIENT: SHOLA PATTON LOC: [facility] U#:[id number] AGE/SX: 32/F ROOM: GA321 RE06/24/[address]: Dr. Gale Lr DO : 1990 BED: 1 DIS: 06/29/2022 SPEC #: [id number] RECD: 06/26/22 10:34 STATUS: LISA REQ #: [id number] NEISHA: 06/26/22 07:[address]: Andres Matias DEPT: SURGICAL PATHOLOGY RECD BY: Sierra Melchor ENTERED: 06/26/22 13:15 SP TYPE: Bone OTHR DR: Dr. Andres Matias, DPM MD Dr. Charles Patterson MD Dr. Viola Startzman Tissues: A - Toe, NOS B - Toe, NOS Procedures: Decalcification bone/plaque Surgery Specimen Level III Surgery Specimen Level IV Comments: @ Ordering doctor for DEC edited from to DR.[email or web address] Crystal HUI at 06/26/22 153 @ Ordering doctor for SUIV edited from to @ zachery HUI at 06/26/22 153 @ Submitting doctor edited from to @ zachery HUI at 06/26/22 1537 HEADER OPERATION: Bone debridement foot PRE-OP DIAGNOSIS: Diabetic foot infection, cellulitis, osteomyelitis TISSUE SUBMITTED: A ? Fifth metatarsal right, B ? Clearance fragment of fifth metatarsal right MICROSCOPIC DIAGNOSIS A. Fifth metatarsal right, amputation: Soft tissue with acute and chronic inflammation. Underlying bone with acute osteomyelitis. B. Clearance fragment fifth metatarsal right: Pieces of bone, negative for acute osteomyelitis. SJ:enoc 07/01/2022 MICROSCOPIC DESCRIPTION Slides are reviewed. GROSS DESCRIPTION A - Received in fixative is one container labeled with the patient's name and designated fifth metatarsal right foot. The specimen consists of two fragments. One fragment consists of a toe with attached skin, soft tissue and bone. The second fragment consists entirely of bone. The fragment consistent toe contains a nail that is grossly unremarkable. This fragment measures 7 cm in length and 2 cm in diameter. No gross lesions are identified. The fragment of bone without skin measures 3 cm in length and 1.5 cm in average dimeter. Banquet Server longitudinal sections are submitted from both fragments in two cassettes after decalcification. B - Received in fixative is one container labeled with the patient's name and designated clearance fragment. The specimen consists of two irregular fragments of arevalo bone measuring 0.8 x 0.3 x 0.2 cm. The specimen is totally submitted in one cassette after decalcification. / LAWANDA:enoc 06/26/2022 TC:2 CPT: 62109, 53551, 99299 x2
[2022-06-26 07:25] LABS: Internal QC Validated? YES +Cl - CLEAR BKGD; Pregnancy, Urine Negative Negative
[2022-06-26] MEDS: Bupivacaine 0.25% 30 ML Vial (07:37)
--- NOTE | 2022-06-26 08:18 | OP.PCM_ITS ---
Report of Operation Date of Procedure: 06/26/22 Pre-Operative Diagnosis: Ulceration down to necrotic bone right foot, osteomyel itis right 5th toe and 5th metatarsal Ulceration down to subcutaneous tissue right foot Post-Operative Diagnosis: Same Surgery/Procedure Performed:: Debridement of all nonviable, infected, and necrotic soft tissue and bone right foot with 5th toe and partial 5th metatarsal amputation Surgeon: Andres Matias health informatics instructor: Darlyn Type of Anesthesia: Local and MAC Specimen's removed: 1. Debrided lateral 5th metatarsal and 5th toe - soft tissue and bone - right foot - sent to pathology 2. Right 5th metatarsal head bone sent to microbiology 3. Clearance fragment of 5th metatarsal, right - sent to pathology and microbiology Estimated Blood Loss (mL): 15mL Description of Procedure: Indications: This is a 32 year old female with history of uncontrolled diabetes, as well as peripheral neuropathy with chronic on and off ulceration and infections to her right foot. She underwent OR debridement I+D of the right foot due to significant infection to the right foot in Mar 2022, and she was treated with IV antibiotics as well. She was doing well, but she has been nonadherent and walking on foot and also her diabetes has not been controlled. She developed another infection to the right foot - with deep wound to the lateral 5th metatarsal head. She was admitted for further management. MRI obtained this admission and there is continued evidence of osteomyelitis to the 5th metatarsal head and also appears there is some bone marrow edema to the 5th toe proximal phalanx. The ulceration has necrosis. Due to the findings we discussed the options and she elected to proceed with OR debridement and amputation of the 5th toe and 5th metatarsal. The procedures were discussed with her and the rationale of this was discussed with her in great detail, reviewed the possible benefits vs risks, goals, expectations and estimated healing time associated with this. She agreed to proceed with the procedure as noted above. We discussed alternative options - antibiotics, wound care, monitoring, or even no treatment. The consent form was reviewed with her, and she freely signed it. The risks were discussed with her and advised these include but not limited to pain, continued infected, need for further procedures/surgery, nonhealing, delayed healing, nerve damage, CRPS, charcot foot/ankle, blood clot, deformity, weakness, disability, loss of limb, loss of life. Patient expressed understanding and agreement. No guarantees were given nor implied. No warranties were given. Operative Procedure: The patient was brought back into the operating room and was placed on the operating room table in the supine position. He was secured to the operating room table with a safety belt around her waist. The patient was already on IV antibiotics Vancomycin and Zosyn. The patient received MAC ane sthesia per the anesthesia team. A total of 20mL of 0.25% Bupivacaine plain was given as a local block around the 5th ray of the right foot after the overlying skin was cleansed with 70% Isopropyl alcohol. A well padded right ankle pneumatic tourniquet was applied. The right foot was scrubbed, prepped, and draped using aseptic technique. Further attention was directed to the right foot and there is a over quarter sized ulceration down to bone, there is noted nonviable and some necrotic tissue present to the site. There is edema to the foot and some erythema around the ulceration site. There is some drainage as well consistent with infection. The right foot was elevated and the right ankle pneumatic tourniquet was inflated to 250mmHg. Using a 15 blade an incision was made around the ulceration and 5th toe and 5th metatarsal. The infection and nonviable/abscess tissue was down to the fascia and bone layer, and the site was debrided down to fascia and bone layer. The 5th metatarsal head and also the base of the 5th toe proximal phalanx were camacho, soft, and nonviable consistent with osteomyelitis. The total area debrided in excisional fashion measured: 9cm x 2.5cm and down to fascia and bone layer. Using a powered sagittal saw the distal 5th metatarsal was resected back to healthy viable hard white bone. The site was flushed out with copious amounts of normal saline solution. A deep culture was obtained of the 5th metatarsal head and sent to microbiology. The debrided tissue was sent to pathology. Using a bone cutting rongeur a piece of bone was obtained from the residual 5th metatarsal as a clearance fragment and sent to microbiology and pathology. The bone at this clearance fragment level was hard, white, and appeared infection free. The site was flushed out with copious amounts of normal saline solution. The skin was reapproximated but left open centrally to drain. There was also noted to be residual healing wound (from previous I+D debridement) to the plantar central forefoot down to subcutaneous tissue, measuring 2cm x 0.5cm and down to subcutaneous tissue. There was nonviable tissue present to the site. All nonviable tissue was debrided from this site in excisional fashion using a 15 blade. This was debrided down to healthy viable base and margins. Post debridement it measured cm x cm and down to subcutaneous tissue. A dressing of Betadine wet to dry gauze packing was applied with overlying Kerlix, abd pad and shawna bandage. The pneumatic tourniquet was deflated (total time of inflation was 15 minutes) - there was immediate return of CFT to the toes on right foot. Hemostasis was achieved. The patient tolerated the above procedure well and anesthesia well with no complications. She was transported from the operating room to the recovery room with vital signs stable and in good condition. Post operative orders were placed. No weightbearing right foot, keep right foot elevated. She will be continued to be followed as an inpatient. Grafts/Implants Used: None Complications None
--- NOTE | 2022-06-26 08:50 | RAD_ITS ---
STUDY: X-RAY - RIGHT FOOT CLINICAL: Female, 32 years old. Post op TECHNIQUE: 3 view(s) of the foot. COMPARISON: Comparison is made with prior examination dated 06/24/2020. FINDINGS: There is a plantar calcaneal spur. Normal visualized subtalar, talonavicular, calcaneocuboid, tarsal and tarsometatarsal articulations. The patient is status post amputation of the distal midportion of the fifth metatarsal as well as the fifth toe. Postoperative soft tissue changes are seen. Normal metatarsophalangeal joint of the great toe. Normal tibial and fibular sesamoid bones. Normal interphalangeal joint of the great toe. Normal phalanges of the great toe. Normal second through fifth metatarsophalangeal joints. Amputation of the fifth toe. RAD/Foot min 3 Views IMPRESSION: The patient is status post amputation of the distal half of the fifth metatarsal and fifth toe. Postoperative soft tissue changes are seen. Electronically Signed: Bernard Sadler MD at 15:13 EST ,
[2022-06-26 09:30] LABS: Bedside Glucose 225 mg/dL (74-106)
--- NOTE | 2022-06-26 10:54 | CASEMGMT ---
Addendum entered by Jazlyn Lo 06/26/22 13:48: Discussed pt status and non wt bearing with wound nurse. RN CM into pt room to see if going to her grandmother's home is still an option. Pt was talking to her on the phone. She states her grandma was just caring for pt cousin for 4 mos and she isn't going to bombard her with her being there. She states, Im not going to my grandmas, I'm not going to a detention and I'm not staying here. Pt states she is going home. She states knows her well enough to know she won't listen anyway. Encouraged pt to follow orders for wound healing. Pt states she will go home and then stay at home with having meals, groceries delivered. Spoke to Annie at [facility] regarding pt nursing needs. Addendum entered by Jazlyn Lo 06/26/22 11:40: Noted pt is to be non wt bearing to right foot and pt has 15 steps to enter the home. Pt states she can put weight on her heal and not at surgical site to get up the steps. She is aware that this is not technically non weightbearing, will discuss with wound nurse. Noted in ID note, pt refuses to leave the hospital with a picc line. Original Note: Received confirmation via vm from [facility] that pt was accepted for services. Pt aware.
--- NOTE | 2022-06-26 11:12 | CON.PCM.ID_ITS ---
Assessment & Plan Assessment/Plan (1) Diabetes mellitus with diabetic polyneuropathy: (2) Osteomyelitis: PLAN: R foot osteo - wound cx with GBS. 03/2022 had MRSA foot osteo. Taken to OR 06/26/[address] Matias for I&D. Surg cx pending. Cont empiric vanc/zosyn. Pt refuses to leave hospital with picc. Will follow, thank you HPI Consult Data Date of Consult: 06/26/22 HPI Narrative Reason for Consultation: osteo HPI Narrative: SHOLA PATTON, is a 32 F with DM neuropathy, admit 03/2022 with MRSA foot osteo, treated with 6 weeks iv vanc. Now back with 5-6 days of R lateral foot pain, redness, swelling, and drainage. Started after a shoe was rubbing. No fever or chills, no recent abx. Came to ED, admitted on vanc/zosyn, taken to OR this AM for I&D and partial resection of 5th metatarsal. Feeling ok, pain controlled. Full ROS performed and neg except as noted above. PFSH Medical History Anxiety Asthma Constipation Depression Diabetes Hypertension Smoker Home Medications albuterol sulfate 90 mcg/actuation aerosol inhaler (Ventolin HFA) 1 inh inhalat ion Q4H SOB 04/06/22 [History Last Taken 06/24/22] docusate sodium 100 mg capsule (Dulcolax Stool Softener (docusate)) 100 mg PO BID PRN stool 04/06/22 [History Last Taken 06/24/22] metformin 500 mg tablet 1,000 mg PO BID DM 06/24/22 [History Last Taken 06/24/22] Allergy/AdvReac Type Severity Reaction Status Date / Time No Known Allergies Allergy Verified 06/24/22 11:13 Family History Other Bleeding disorder Cancer Diabetes Hypertension Surgical History Hx of foot surgery Social History Smoking Status: Current some day smoker tobacco type: cigarettes alcohol intake: never substance use type: does not use what type of physical activity do you participate in: none Physical Exam Const alert, oriented x3 and no apparent distress General Appearance: cooperative HEENT normocephalic and head/scalp atraumatic Eyes PERRL and EOMs intact bilaterally Neck supple and No nodes Resp normal air movement and clear to auscultation bilaterally Cardio regular rate and regular rhythm Heart Sounds: Negative for murmur GI soft to palpation, non-tender and non-distended Extremity General Extremity: Negative for edema Skin Skin Narrative: R foot wrapped Neuro CN's II-XII intact bilaterally Lab / Micro Data Attestation: I reviewed the patient's lab results. Result Diagrams: 06/26/22 02:10 06/26/22 02:10 Labs: Laboratory Results - last 24 hr 06/25/22 11:33: POC Glucose 253 H 06/25/22 16:26: POC Glucose 266 H 06/25/22 21:25: POC Glucose 302 H 06/26/22 02:10: WBC 8.4, RBC 4.50, Hgb 11.9 L, Hct 37.0, MCV 82.2, MCH 26.4 L, MCHC 32.2, RDW Std Deviation 41.4, RDW Coeff of John 14.1, Plt Count 330, MPV 9.2, Immature Gran % (Auto) 1.400 H, Neut % (Auto) 50.8, Lymph % (Auto) 39.0, [place] % (Auto) 7.1, Eos % (Auto) 1.1, Baso % (Auto) 0.6, Absolute Neuts (auto) 4.3, Absolute Lymphs (auto) 3.28, Nucleated RBC % 0 06/26/22 02:10: Sodium 135 L, Potassium 3.8, Chloride 104, Carbon Dioxide 27.0, Anion Gap 4 L, BUN 13, Creatinine 0.77, Estim Creat Clear Calc 100.01, Est GFR (MDRD) Af Amer 113, Est GFR (MDRD) Non-Af 93, BUN/Creatinine Ratio 16.9, Glucose 273 H, Calcium 8.7 06/26/22 02:10: Vancomycin Trough 14.3 06/26/22 06:06: POC Glucose 275 H 06/26/22 07:00: Urine Test Negative 06/26/22 09:10: POC Glucose 225 H Micro: Microbiology 06/24/22 15:15 Urine, Clean Catch Urine Culture - Preliminary Culture exhibits no growth.
[2022-06-26 11:55] LABS: Bedside Glucose 365 mg/dL (74-106)
--- NOTE | 2022-06-26 13:32 | PN.HOSP_ITS ---
Subjective Subjective Patient seen and examined. Today POD 0 for surgery for osteomyelitis of right foot. She has remained hemodynamically stable. Objective Data Objective Data Vital Signs: Vital Signs Temp Pulse Resp BP Pulse Ox O2 Del Method 98.5 F 80 16 134/88 H 95 Room Air 06/26/22 09:55 06/26/22 09:57 06/26/22 09:55 06/26/22 09:55 06/26/22 09:55 06/26/22 09:55 Oxygen Delivery Method Room Air Weight: 236 lb 1.841 oz Body Mass Index (BMI) 38.1 Intake & Output: Intake and Output for Last 24 Hours 06/24/22 06/25/22 06/26/22 23:59 23:59 23:59 Intake Total 1640 / 1640 1280.00 / 1280.00 1590 / 1590 Balance 1640 / 1640 1280.00 / 1280.00 1590 / 1590 Lab / Micro Data Result Diagrams: 06/26/22 02:10 06/26/22 02:10 Labs: Laboratory Results - last 24 hr 06/25/22 16:26: POC Glucose 266 H 06/25/22 21:25: POC Glucose 302 H 06/26/22 02:10: WBC 8.4, RBC 4.50, Hgb 11.9 L, Hct 37.0, MCV 82.2, MCH 26.4 L, MCHC 32.2, RDW Std Deviation 41.4, RDW Coeff of John 14.1, Plt Count 330, MPV 9.2, Immature Gran % (Auto) 1.400 H, Neut % (Auto) 50.8, Lymph % (Auto) 39.0, [place] % (Auto) 7.1, Eos % (Auto) 1.1, Baso % (Auto) 0.6, Absolute Neuts (auto) 4.3, Absolute Lymphs (auto) 3.28, Nucleated RBC % 0 06/26/22 02:10: Sodium 135 L, Potassium 3.8, Chloride 104, Carbon Dioxide 27.0, Anion Gap 4 L, BUN 13, Creatinine 0.77, Estim Creat Clear Calc 100.01, Est GFR (MDRD) Af Amer 113, Est GFR (MDRD) Non-Af 93, BUN/Creatinine Ratio 16.9, Glucose 273 H, Calcium 8.7 06/26/22 02:10: Vancomycin Trough 14.3 06/26/22 06:06: POC Glucose 275 H 06/26/22 07:00: Urine Test Negative 06/26/22 09:10: POC Glucose 225 H 06/26/22 11:36: POC Glucose 365 H Micro: Microbiology 06/24/22 15:15 Urine, Clean Catch Urine Culture - Preliminary Culture exhibits no growth. Physical Exam Const alert, oriented x3 and no apparent distress HEENT head/scalp atraumatic, moist oral mucous membranes and oropharynx normal Head and Scalp: normocephalic Mouth: oral and palatal mucosa normal Eyes PERRL and EOMs intact bilaterally Neck no lymphadenopathy, supple and no JVD Resp normal respiratory effort, no retractions, no use of accessory muscles and clear to auscultation bilaterally Cardio regular rate, regular rhythm, S1 normal heart sound, S2 normal heart sound and no murmurs GI normal to inspection, nondistended, normoactive bowel sounds, soft to palpation, non-tender and non-distended Extremity Extremity Narrative: right foot wrapped in bandage Neuro oriented x3, CN's II-XII intact bilaterally, moves all extremities and no focal motor deficits Sensorium / Orientation: awake Motor Exam: strength 5/5 throughout Psych affect normal Assessment & Plan Assessment/Plan (1) Lactic acidosis: (2) Cellulitis and abscess of right lower extremity: (3) Diabetes mellitus with diabetic polyneuropathy: PLAN: Plan #RIght diabetic foot ulcer * had previously had surgery on right foot, and was on vancomycin. However, had worsening redness and pain, so there is concern for osteomyelitis * ?on IV vancomycin and zosyn * Podiatry on board and concerned about residual osteomyelitis of the right fifth metatarsal and to the toe. * MRI of the foot ordered and pending. * For right foot debridement with removal of the fifth metatarsal head and possible fifth toe as well on 06/26/2022. * Culture done on outpatient basis was positive for MRSA on PCR. * Wound care on board. * had debridement of the lateral 5th metatarsal and 5th toe. today is POD 0 * PT/OT on board * #TYpe 2 diabetes mellitus with peripheral neuropathy * on lantus 35 units but had not been compliant with it. * A1C today is 10.6 * ISS. Accuchecks ACHS * hold metformin * will refer to endocrinology on outpatient basis * will benefit from endocrinology referral upon discharge * DVT prophylaxis: lovenox Charges/Coding Visit Charges Inpatient E&M: 32465 Subs Hosp L2
[2022-06-26] MEDS: 0.9% Saline Lock 10 ML Syringe IV (13:59)
[2022-06-26 16:26] LABS: Bedside Glucose 360 mg/dL (74-106)
[2022-06-26] MEDS: Insulin Glargine-YFGN 100 UNIT/ML Pen 35 UNIT SC (22:35)
[2022-06-26 23:51] LABS: Bedside Glucose 249 mg/dL (74-106)
[2022-06-27 03:24] VITALS: BP 125/92; PULSE 78; RESP 18; TEMP 36.9; O2SAT 98
[2022-06-27] MEDS: Insulin Lispro 100 UNIT/ML INSULN.PEN SC ×4 (06:23→21:23)
[2022-06-27 06:26] LABS: Bedside Glucose 191 mg/dL (74-106)
[2022-06-27 07:48] LABS: Absolute Lymphocyte Count 4.06 X10^3/uL (0.83-4.51); Absolute Neutrophil Count 5.5 X10^3/uL (2.0-7.7); Basophil# 0.03 X10^3/uL; Basophil% 0.3 % (0-1); Eosinophil# 0.06 X10^3/uL; Eosinophils% 0.6 % (0-5); Hematocrit 33.5 % (37-47); Hemoglobin 10.7 g/dL (12.0-15.0); Lymphocyte # 4.06 X10^3/ul (0.83-4.51); Lymphocyte % 39.2 % (19-41); Mean Corp Hgb Conc 31.9 g/dL (32-36); Mean Corpuscular Hgb 26.2 pg (27.0-32.0); Mean Corpuscular Volume 82.1 fL (81-99); Mean Platelet Vol. 9.1 fl (6.2-12.0); Monocyte# 0.56 X10^3/uL; Monocyte% 5.4 % (0-10); NRBC Flagged by Analyzer 0 % (0-5); Neutrophil # 5.52 X10^3/uL (2.7-7.7); Neutrophil % 53.3 % (47-70); Platelet Count 337 K/mm3 (150-450); RBC Distribution Width CV 14.1 % (11.6-14.6); RBC Distribution Width SD 41.4 fl (35.1-43.9); Red Blood Count 4.08 M/mm3 (4.2-5.4); White Blood Count 10.4 K/mm3 (4.4-11.0)
[2022-06-27 08:06] LABS: Anion Gap 8 (5-15); BUN 14 mg/dL (7-18); BUN/Creat Ratio 21.5 RATIO (10-20); Calcium,Total 8.2 mg/dL (8.5-10.1); Chloride 106 mmol/L (98-107); Creatinine, Serum 0.65 mg/dL (0.55-1.02); EST Glomerular Filtration Rate 113 mL/min (>60); Est Glom Filt Rate - Afr Amer 137 mL/min (>60); Estimated Creatinine Clearance 118.47 ml/min; Glucose 169 mg/dL (74-106); Potassium 3.5 mmol/L (3.5-5.1); Sodium Level 139 mmol/L (136-145)
[2022-06-27 09:02] VITALS: BP 123/84; PULSE 94; RESP 18; TEMP 36.4; O2SAT 99
[2022-06-27] MEDS: Enoxaparin 40 MG/0.4 ML Syringe SC (09:06)
--- NOTE | 2022-06-27 09:19 | PCM.PROGNOTE ---
Subjective Subjective Patient was seen this morning for follow up on right foot. She relates there is no pain at this time. She is resting in bed comfortably, no complaints. No fever, chills, nausea or vomiting. Objective Data Objective Data Vital Signs: Vital Signs Temp Pulse Resp BP Pulse Ox O2 Del Method 97.6 F L 94 18 123/84 H 99 Room Air 06/27/22 09:02 06/27/22 09:02 06/27/22 09:02 06/27/22 09:02 06/27/22 09:02 06/27/22 09:02 Oxygen Delivery Method Room Air Weight: 107.1 kg Body Mass Index (BMI) 38.1 Intake & Output: Intake and Output for Last 24 Hours 06/25/22 06/26/22 06/27/22 23:59 23:59 23:59 Intake Total 1280.00 / 1280.00 2230 / 2230 590 / 590 Balance 1280.00 / 1280.00 2230 / 2230 590 / 590 Lab / Micro Data Result Diagrams: 06/27/22 07:20 06/27/22 07:20 Labs: Laboratory Results - last 24 hr 06/26/22 09:10: POC Glucose 225 H 06/26/22 11:36: POC Glucose 365 H 06/26/22 16:04: POC Glucose 360 H 06/26/22 22:35: POC Glucose 249 H 06/27/22 05:47: POC Glucose 191 H 06/27/22 07:20: Sodium 139, Potassium 3.5, Chloride 106, Carbon Dioxide 25.0, Anion Gap 8, BUN 14, Creatinine 0.65, Estim Creat Clear Calc 118.47, Est GFR (MDRD) Af Amer 137, Est GFR (MDRD) Non-Af 113, BUN/Creatinine Ratio 21.5 H, Glucose 169 H, Calcium 8.2 L 06/27/22 07:20: WBC 10.4, RBC 4.08 L, Hgb 10.7 L, Hct 33.5 L, MCV 82.1, MCH 26.2 L, MCHC 31.9 L, RDW Std Deviation 41.4, RDW Coeff of John 14.1, Plt Count 337, MPV 9.1, Immature Gran % (Auto) 1.200 H, Neut % (Auto) 53.3, Lymph % (Auto) 39.2, [place] % (Auto) 5.4, Eos % (Auto) 0.6, Baso % (Auto) 0.3, Absolute Neuts (auto) 5.5, Absolute Lymphs (auto) 4.06, Nucleated RBC % 0 Micro: Microbiology 06/26/22 08:50 Bone - 5th Toe Gram Stain - Final 06/26/22 08:50 Bone - 5th Toe Gram Stain - Final 06/24/22 15:15 Urine, Clean Catch Urine Culture - Final Culture exhibits no growth. Radiography Diagnostic Testing: Radiology Impression Foot X-Ray 06/26/22 08:50 IMPRESSION: The patient is status post amputation of the distal half of the fifth metatarsal and fifth toe. Postoperative soft tissue changes are seen. Electronically Signed: Bernard Sadler MD at 15:13 EST , Physical Exam Narrative Right foot s/p debridement partial 5th ray resection with wound with granular tissue and viable margins, healing well, no purulence, no visible abscess, no crepitus, no streaking, no maloder present. Healing plantar incision with no evidence of infection (central forefoot) with healthy viable base and margins down to subcutaneous tissue - No other open lesions noted to the right foot. Sensation diminished c/w chronic peripheral neuropathy. CFT < 2 seconds to all toes on the right foot, and no evidence of ischemia to the foot. Const alert, oriented x3 and no apparent distress Assessment & Plan Assessment/Plan (1) Type 2 diabetes mellitus with foot ulcer: (2) Diabetic foot infection: (3) Cellulitis of foot, right: (4) Osteomyelitis: PLAN: Plan Evaluation performed. Reviewed diagnostic data. s/p right foot debridement (5th toe/ray resection). Site is healthy and viable. Surgical culture results pending. Culture prior to surgery positive for MRSA on PCR, and growing strep. Patient is on IV antibiotics - Vanc and Zosyn. Wound care for now: dakins wet to dry gauze dressing with overlying kerlix and shawna dressing. Change daily. Patient is refusing wound vac. 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 No weightbearing right foot. Keep foot elevated. Podiatry will continue to follow.
[2022-06-27] MEDS: DAKIN'S SOL HALF STRENGTH (=0.25%) 1 APPLIC TOPICAL (11:35)
[2022-06-27 12:11] LABS: Bedside Glucose 236 mg/dL (74-106)
--- NOTE | 2022-06-27 12:35 | PN.HOSP_ITS ---
Subjective Subjective Patient seen and examined. She had no complaints and had an uneventful night. Review of systems is otherwise negative. She has remained hemodynamically stable. Pain is well controlled. Objective Data Objective Data Vital Signs: Vital Signs Temp Pulse Resp BP Pulse Ox O2 Del Method 97.6 F L 94 18 123/84 H 99 Room Air 06/27/22 09:02 06/27/22 09:02 06/27/22 09:02 06/27/22 09:02 06/27/22 09:02 06/27/22 09:02 Oxygen Delivery Method Room Air Weight: 236 lb 1.841 oz Body Mass Index (BMI) 38.1 Intake & Output: Intake and Output for Last 24 Hours 06/25/22 06/26/22 06/27/22 23:59 23:59 23:59 Intake Total 1280.00 / 1280.00 2230 / 2230 590 / 590 Balance 1280.00 / 1280.00 2230 / 2230 590 / 590 Lab / Micro Data Result Diagrams: 06/27/22 07:20 06/27/22 07:20 Labs: Laboratory Results - last 24 hr 06/26/22 16:04: POC Glucose 360 H 06/26/22 22:35: POC Glucose 249 H 06/27/22 05:47: POC Glucose 191 H 06/27/22 07:20: Sodium 139, Potassium 3.5, Chloride 106, Carbon Dioxide 25.0, Anion Gap 8, BUN 14, Creatinine 0.65, Estim Creat Clear Calc 118.47, Est GFR (MDRD) Af Amer 137, Est GFR (MDRD) Non-Af 113, BUN/Creatinine Ratio 21.5 H, Glucose 169 H, Calcium 8.2 L 06/27/22 07:20: WBC 10.4, RBC 4.08 L, Hgb 10.7 L, Hct 33.5 L, MCV 82.1, MCH 26.2 L, MCHC 31.9 L, RDW Std Deviation 41.4, RDW Coeff of John 14.1, Plt Count 337, MPV 9.1, Immature Gran % (Auto) 1.200 H, Neut % (Auto) 53.3, Lymph % (Auto) 39.2, [place] % (Auto) 5.4, Eos % (Auto) 0.6, Baso % (Auto) 0.3, Absolute Neuts (auto) 5.5, Absolute Lymphs (auto) 4.06, Nucleated RBC % 0 06/27/22 11:33: POC Glucose 236 H Micro: Microbiology 06/26/22 08:50 Bone - 5th Toe Gram Stain - Final 06/26/22 08:50 Bone - 5th Toe Wound Culture - Preliminary No growth-Final to follow 06/26/22 08:50 Bone - 5th Toe Gram Stain - Final 06/26/22 08:50 Bone - 5th Toe Wound Culture - Preliminary No growth-Final to follow 06/24/22 15:15 Urine, Clean Catch Urine Culture - Final Culture exhibits no growth. Radiography Diagnostic Testing: Radiology Impression Foot X-Ray 06/26/22 08:50 IMPRESSION: The patient is status post amputation of the distal half of the fifth metatarsal and fifth toe. Postoperative soft tissue changes are seen. Electronically Signed: Bernard Sadler MD at 15:13 EST , Physical Exam Const alert, oriented x3 and no apparent distress HEENT head/scalp atraumatic, moist oral mucous membranes and oropharynx normal Head and Scalp: normocephalic Mouth: oral and palatal mucosa normal Eyes PERRL and EOMs intact bilaterally Neck no lymphadenopathy, supple and no JVD Resp normal respiratory effort, no retractions, no use of accessory muscles and clear to auscultation bilaterally Cardio regular rate, regular rhythm, S1 normal heart sound, S2 normal heart sound and no murmurs GI normal to inspection, nondistended, normoactive bowel sounds, soft to palpation, non-tender and non-distended Extremity Extremity Narrative: right foot wrapped in bandage Neuro oriented x3, CN's II-XII intact bilaterally, moves all extremities and no focal motor deficits Sensorium / Orientation: awake Motor Exam: strength 5/5 throughout Psych affect normal Assessment & Plan Assessment/Plan (1) Lactic acidosis: (2) Cellulitis and abscess of right lower extremity: (3) Diabetes mellitus with diabetic polyneuropathy: PLAN: Plan #RIght diabetic foot ulcer with osteomyelitis of the right fifth toe * had previously had surgery on right foot, and was on vancomycin. However, had worsening redness and pain, so there is concern for osteomyelitis * ?on IV vancomycin and zosyn * Podiatry on board and concerned about residual osteomyelitis of the right fi fth metatarsal and to the toe. * MRI of the foot showed osteomyelitis of the right fifth toe * For right foot debridement with removal of the fifth metatarsal head and possible fifth toe as well on 06/26/2022. * Culture done on outpatient basis was positive for MRSA on PCR. * Wound care on board. * had debridement of the lateral 5th metatarsal and 5th toe. today is POD 1 * PT/OT on board * patient refusing PICC line at [facility] and wants to be discharged on oral antibiotics. Wound cultures from surgery pending #TYpe 2 diabetes mellitus with peripheral neuropathy * on lantus 35 units but had not been compliant with it. * A1C today is 10.6 * ISS. Accuchecks ACHS * hold metformin * will refer to endocrinology on outpatient basis * will benefit from endocrinology referral upon discharge * DVT prophylaxis: lovenox Charges/Coding Visit Charges Inpatient E&M: 15296 Subs Hosp L2
[2022-06-27 14:19] VITALS: BP 129/94; PULSE 85; RESP 18; TEMP 36.2; O2SAT 98
[2022-06-27 17:31] LABS: Bedside Glucose 238 mg/dL (74-106)
[2022-06-27 21:17] VITALS: BP 132/85; PULSE 80; RESP 18; TEMP 36.8; O2SAT 97
[2022-06-27] MEDS: Insulin Glargine-YFGN 100 UNIT/ML Pen 35 UNIT SC (21:22)
[2022-06-27 21:45] LABS: Bedside Glucose 272 mg/dL (74-106)
[2022-06-28 02:57] LABS: Absolute Neutrophil Count 4.1 X10^3/uL (2.0-7.7); Basophil# 0.05 X10^3/uL; Basophil% 0.6 % (0-1); Eosinophil# 0.11 X10^3/uL; Eosinophils% 1.2 % (0-5); Hematocrit 33.2 % (37-47); Lymphocyte % 44.1 % (19-41); Mean Corp Hgb Conc 33.1 g/dL (32-36); Mean Corpuscular Volume 81.6 fL (81-99); Mean Platelet Vol. 8.9 fl (6.2-12.0); Monocyte# 0.73 X10^3/uL; NRBC Flagged by Analyzer 0 % (0-5); Neutrophil # 4.05 X10^3/uL (2.7-7.7); Neutrophil % 44.6 % (47-70); Platelet Count 327 K/mm3 (150-450); RBC Distribution Width CV 14.1 % (11.6-14.6); RBC Distribution Width SD 41.3 fl (35.1-43.9); Red Blood Count 4.07 M/mm3 (4.2-5.4); White Blood Count 9.1 K/mm3 (4.4-11.0)
[2022-06-28 03:10] VITALS: BP 121/79; PULSE 77; RESP 18; TEMP 37.1; O2SAT 98
[2022-06-28 03:19] LABS: Anion Gap 8 (5-15); BUN 15 mg/dL (7-18); BUN/Creat Ratio 22.7 RATIO (10-20); Calcium,Total 8.3 mg/dL (8.5-10.1); Chloride 105 mmol/L (98-107); Creatinine, Serum 0.66 mg/dL (0.55-1.02); EST Glomerular Filtration Rate 112 mL/min (>60); Est Glom Filt Rate - Afr Amer 135 mL/min (>60); Estimated Creatinine Clearance 116.68 ml/min; Glucose 138 mg/dL (74-106); Potassium 3.6 mmol/L (3.5-5.1); Sodium Level 138 mmol/L (136-145)
[2022-06-28 03:21] LABS: Vancomycin, Trough Level 15.6 ug/mL (5.0-15.0)
--- NOTE | 2022-06-28 04:08 | PCM.RX.CS ---
Consult Pharmacy has been consulted to manage selected antiobiotic: Vancomycin Type of Consult: Follow-up Suspected Infection: Skin/Soft tissue Labs: Sodium 138 mmol/L (136-145) 06/28/22 02:39 Potassium 3.6 mmol/L (3.5-5.1) 06/28/22 02:39 Chloride 105 mmol/L (98-107) 06/28/22 02:39 Carbon Dioxide 25.0 mmol/L (21.0-32.0) 06/28/22 02:39 Anion Gap 8 (5-15) 06/28/22 02:39 BUN 15 mg/dL (7-18) 06/28/22 02:39 Creatinine 0.66 mg/dL (0.55-1.02) 06/28/22 02:39 Est GFR (MDRD) Af Amer 135 mL/min (>60) 06/28/22 02:39 Est GFR (MDRD) Non-Af 112 mL/min (>60) 06/28/22 02:39 BUN/Creatinine Ratio 22.7 RATIO (10-20) H 06/28/22 02:39 Glucose 138 mg/dL (74-106) H 06/28/22 02:39 Vancomycin Trough 15.6 ug/mL (5.0-15.0) H 06/28/22 02:39 Microbiology: Microbiology 06/26/22 08:50 Bone - 5th Toe Gram Stain - Final 06/26/22 08:50 Bone - 5th Toe Wound Culture - Preliminary No growth-Final to follow 06/26/22 08:50 Bone - 5th Toe Gram Stain - Final 06/26/22 08:50 Bone - 5th Toe Wound Culture - Preliminary No growth-Final to follow 06/24/22 15:15 Urine, Clean Catch Urine Culture - Final Culture exhibits no growth. Goal Trough: 15-20 mcg/mL Pharmacy Plan for Drug Dosing: Pharmacy Service will continue to monitor and adjust dosing as required. TROUGH 15.6 @ 11.5 HRS. NO CHANGES, FOLLOW UP TROUGH IN 2 DAYS Follow-Up Labs: Trough Vancomycin Labs to be done on [date and time ordered]: 06/30 @ 0902
[2022-06-28] MEDS: Insulin Lispro 100 UNIT/ML INSULN.PEN SC ×4 (06:23→21:24)
[2022-06-28 06:46] LABS: Bedside Glucose 165 mg/dL (74-106)
[2022-06-28 08:07] VITALS: BP 134/81; PULSE 81; RESP 16; TEMP 36.8; O2SAT 100
[2022-06-28] MEDS: Enoxaparin 40 MG/0.4 ML Syringe SC (10:15)
[2022-06-28] MEDS: DAKIN'S SOL HALF STRENGTH (=0.25%) 1 APPLIC TOPICAL (10:17)
--- NOTE | 2022-06-28 10:54 | PN_ITS ---
Subjective Subjective Patient is a 32-year-old female who is seen s/p fifth metatarsal bone debridement to treat underlying osteomyelitis. Patient is seen today resting comfortably in bed this a.m. with no complaints. She denies any nausea, vomiting, fever, chills, shortness of breath, calf pain. She cites minimal complaint of pain about the surgical site. States she has remained nonweightbearing to the right lower extremity as instructed. Objective Data Objective Data Vital Signs: Vital Signs Temp Pulse Resp BP Pulse Ox O2 Del Method 98.2 F 81 16 134/81 H 100 Room Air 06/28/22 08:07 06/28/22 08:07 06/28/22 08:07 06/28/22 08:07 06/28/22 08:07 06/28/22 08:07 Oxygen Delivery Method Room Air Weight: 107.1 kg Body Mass Index (BMI) 38.1 Intake & Output: Intake and Output for Last 24 Hours 06/26/22 06/27/22 06/28/22 23:59 23:59 23:59 Intake Total 2230 / 2230 1230 / 1230 590 / 590 Balance 2230 / 2230 1230 / 1230 590 / 590 Lab / Micro Data Result Diagrams: 06/28/22 02:39 06/28/22 02:39 Labs: Laboratory Results - last 24 hr 06/27/22 11:33: POC Glucose 236 H 06/27/22 17:07: POC Glucose 238 H 06/27/22 21:19: POC Glucose 272 H 06/28/22 02:39: Sodium 138, Potassium 3.6, Chloride 105, Carbon Dioxide 25.0, Anion Gap 8, BUN 15, Creatinine 0.66, Estim Creat Clear Calc 116.68, Est GFR (MDRD) Af Amer 135, Est GFR (MDRD) Non-Af 112, BUN/Creatinine Ratio 22.7 H, Glucose 138 H, Calcium 8.3 L 06/28/22 02:39: WBC 9.1, RBC 4.07 L, Hgb 11.0 L, Hct 33.2 L, MCV 81.6, MCH 27.0, MCHC 33.1, RDW Std Deviation 41.3, RDW Coeff of John 14.1, Plt Count 327, MPV 8.9, Immature Gran % (Auto) 1.500 H, Neut % (Auto) 44.6 L, Lymph % (Auto) 44.1 H , [place] % (Auto) 8.0, Eos % (Auto) 1.2, Baso % (Auto) 0.6, Absolute Neuts (auto) 4.1, Absolute Lymphs (auto) 4.00, Nucleated RBC % 0 06/28/22 02:39: Vancomycin Trough 15.6 H 06/28/22 06:19: POC Glucose 165 H Micro: Microbiology 06/26/22 08:50 Bone - 5th Toe Gram Stain - Final 06/26/22 08:50 Bone - 5th Toe Wound Culture - Final No growth aerobically. 06/26/22 08:50 Bone - 5th Toe Gram Stain - Final 06/26/22 08:50 Bone - 5th Toe Wound Culture - Preliminary No growth-Final to follow 06/24/22 15:15 Urine, Clean Catch Urine Culture - Final Culture exhibits no growth. Physical Exam Narrative Right foot s/p debridement partial 5th ray resection with wound with granular tissue and viable margins, healing well, no purulence, no visible abscess, no crepitus, no streaking, no maloder present. Healing plantar incision with no evidence of infection (central forefoot) with healthy viable base and margins down to subcutaneous tissue - No other open lesions noted to the right foot. Sensation diminished c/w chronic peripheral neuropathy. CFT < 2 seconds to all toes on the right foot, and no evidence of ischemia to the foot. Const alert, oriented x3 and no apparent distress Lymph Lymphatic: no lymphadenopathy noted and no lymphedema noted Skin no rashes or lesions noted, skin turgor normal and no jaundice Wound Narrative: Sutures intact to the lateral aspect of the right foot with fifth digit amputation noted. There is a small portion of the incision open with packing in place to the surgical site. Underlying tissue appears healthy and granular in nature with moderate serosanguineous drainage postsurgical intervention. There is no palpable fluctuance, no bogginess/abscess formation, no purulent drainage, no erythema, no malodor. There is moderate edema about the lateral foot consistent with postsurgical status. Assessment & Plan Assessment/Plan (1) Type 2 diabetes mellitus with foot ulcer: (2) Diabetic foot infection: (3) Cellulitis of foot, right: (4) Osteomyelitis: PLAN: Plan I personally saw the patient and evaluated patient Reviewed her diagnostic data. S/p debridement of right foot with partial fifth ray resection, DOS: 06/26/22, POD# 2. Site is healthy with granular viable tissue. No signs of infection. Packing noted to be in place to surgical site with sutures intact to the right foot. Dressings changed today consisting of Dakin's wet-to-dry packing to the surgical site with overlying Kerlix and Selvin wrap. Wound care/dressings: Dressing changes to consist of Dakin's wet to dry gauze dressing with overlying Kerlix and Selvin wrap. Nursing to change dressing daily. Patient continues to refuse wound VAC, discussed how this will continue to aid her healing and speed recovery. Patient states she will change dressings twice daily consisting of the Dakin's wet-to-dry once discharged home. I discussed expected healing time of her wound postsurgical intervention. All of her questions were answered to her satisfaction. WBC currently 9.1 and stable Cultures prior to surgery demonstrating positive MRSA on PCR and growing strep. Patient on IV antibiotics Vanco/Zosyn. Surgical cultures: Cultures from 06/26/2022 currently demonstrate no growth, final results pending. She is being followed by infectious disease for antibiotic management, their input is greatly appreciated. At this time patient continues to refuse discharge with PICC line placement. Likely will be discharged home on oral antibiotics with follow by ID. Edema: She was instructed to continue elevation of her right lower extremity at all times of rest She is to remain nonweightbearing to the right foot. I discussed the importance of her nonweightbearing status and compliance with her postoperative instructions. I reviewed the importance of proper blood sugar control to aid in healing. Encourage lifestyle changes to aid in management of weight and tight glucose control. Medicine team following for medical management, this is greatly appreciated. Podiatry will continue to follow while in house. Pending her discharge home she is to follow-up with Dr. Matias in office in 1 week. Please do not hesitate to call with any questions or concerns Jr. Candy Kessler.P.M. [facility] [phone] Note: [employer] speech recognition elementary special education teacher software was used to create portions of this document. Sound-alike and misspelled words, as well as other elementary special education teacher errors may be contained in the documentation.
[2022-06-28 12:06] LABS: Bedside Glucose 220 mg/dL (74-106)
[2022-06-28 14:00] VITALS: BP 132/92; PULSE 85; RESP 12; TEMP 37.3; O2SAT 96
--- NOTE | 2022-06-28 14:59 | PN.HOSP_ITS ---
Subjective Subjective Patient seen and examined. She has no complaints today. She had an uneventful night. Review of systems otherwise negative. Objective Data Objective Data Vital Signs: Vital Signs Temp Pulse Resp BP Pulse Ox O2 Del Method 98.2 F 81 16 134/81 H 100 Room Air 06/28/22 08:07 06/28/22 08:07 06/28/22 08:07 06/28/22 08:07 06/28/22 08:07 06/28/22 08:07 Oxygen Delivery Method Room Air Weight: 236 lb 1.841 oz Body Mass Index (BMI) 38.1 Intake & Output: Intake and Output for Last 24 Hours 06/26/22 06/27/22 06/28/22 23:59 23:59 23:59 Intake Total 2230 / 2230 1230 / 1230 1590 / 1590 Balance 2230 / 2230 1230 / 1230 1590 / 1590 Lab / Micro Data Result Diagrams: 06/28/22 02:39 06/28/22 02:39 Labs: Laboratory Results - last 24 hr 06/27/22 17:07: POC Glucose 238 H 06/27/22 21:19: POC Glucose 272 H 06/28/22 02:39: Sodium 138, Potassium 3.6, Chloride 105, Carbon Dioxide 25.0, Anion Gap 8, BUN 15, Creatinine 0.66, Estim Creat Clear Calc 116.68, Est GFR (MDRD) Af Amer 135, Est GFR (MDRD) Non-Af 112, BUN/Creatinine Ratio 22.7 H, Glucose 138 H, Calcium 8.3 L 06/28/22 02:39: WBC 9.1, RBC 4.07 L, Hgb 11.0 L, Hct 33.2 L, MCV 81.6, MCH 27.0, MCHC 33.1, RDW Std Deviation 41.3, RDW Coeff of John 14.1, Plt Count 327, MPV 8.9, Immature Gran % (Auto) 1.500 H, Neut % (Auto) 44.6 L, Lymph % (Auto) 44.1 H , [place] % (Auto) 8.0, Eos % (Auto) 1.2, Baso % (Auto) 0.6, Absolute Neuts (auto) 4.1, Absolute Lymphs (auto) 4.00, Nucleated RBC % 0 06/28/22 02:39: Vancomycin Trough 15.6 H 06/28/22 06:19: POC Glucose 165 H 06/28/22 11:32: POC Glucose 220 H Micro: Microbiology 06/26/22 08:50 Bone - 5th Toe Gram Stain - Final 06/26/22 08:50 Bone - 5th Toe Wound Culture - Final No growth aerobically. 06/26/22 08:50 Bone - 5th Toe Gram Stain - Final 06/26/22 08:50 Bone - 5th Toe Wound Culture - Final No growth aerobically. 06/24/22 15:15 Urine, Clean Catch Urine Culture - Final Culture exhibits no growth. Physical Exam Const alert, oriented x3 and no apparent distress HEENT head/scalp atraumatic, moist oral mucous membranes and oropharynx normal Head and Scalp: normocephalic Mouth: oral and palatal mucosa normal Eyes PERRL and EOMs intact bilaterally Neck no lymphadenopathy, supple and no JVD Resp normal respiratory effort, no retractions, no use of accessory muscles and clear to auscultation bilaterally Cardio regular rate, regular rhythm, S1 normal heart sound, S2 normal heart sound and no murmurs GI normal to inspection, nondistended, normoactive bowel sounds, soft to palpation, non-tender and non-distended Extremity Extremity Narrative: right foot wrapped in bandage Neuro oriented x3, CN's II-XII intact bilaterally, moves all extremities and no focal motor deficits Sensorium / Orientation: awake Motor Exam: strength 5/5 throughout Psych affect normal Assessment & Plan Assessment/Plan (1) Lactic acidosis: (2) Cellulitis and abscess of right lower extremity: (3) Diabetes mellitus with diabetic polyneuropathy: PLAN: Plan #RIght diabetic foot ulcer with osteomyelitis of the right fifth toe * had previously had surgery on right foot, and was on vancomycin. However, had worsening redness and pain * ?on IV vancomycin and zosyn * Podiatry on board and concerned about residual osteomyelitis of the right fifth metatarsal and to the toe. * MRI of the foot showed osteomyelitis of the right fifth toe * For right foot debridement with removal of the fifth metatarsal head and possible fifth toe as well on 06/26/2022. * Culture done on outpatient basis was positive for MRSA on PCR. * Wound care on board. * had debridement of the lateral 5th metatarsal and 5th toe. t * PT/OT on board * patient refusing PICC line at [facility] and wants to be discharged on oral an tibiotics. Wound cultures from surgery still pending #TYpe 2 diabetes mellitus with peripheral neuropathy * on lantus 35 units but had not been compliant with it. * A1C today is 10.6 * ISS. Accuchecks ACHS * hold metformin * will refer to endocrinology on outpatient basis * will benefit from endocrinology referral upon discharge * DVT prophylaxis: lovenox Disposition: * anticipate discharge over next 24-48 hours, once cultures result and ID can help determine oral antibiotic regimen and duration. Charges/Coding Visit Charges Inpatient E&M: 32872 Subs Hosp L2
[2022-06-28 16:46] LABS: Bedside Glucose 222 mg/dL (74-106)
[2022-06-28 21:18] VITALS: BP 126/87; PULSE 91; RESP 18; TEMP 36.6; O2SAT 98
[2022-06-28] MEDS: Insulin Glargine-YFGN 100 UNIT/ML Pen 35 UNIT SC (21:23)
[2022-06-28 23:10] LABS: Bedside Glucose 262 mg/dL (74-106)
[2022-06-29 04:15] VITALS: BP 130/96; PULSE 87; RESP 18; TEMP 36.8; O2SAT 100
[2022-06-29] MEDS: Insulin Lispro 100 UNIT/ML INSULN.PEN SC ×2 (05:29→11:32)
[2022-06-29 06:19] LABS: Absolute Lymphocyte Count 2.81 X10^3/uL (0.83-4.51); Absolute Neutrophil Count 4.2 X10^3/uL (2.0-7.7); Basophil# 0.06 X10^3/uL; Basophil% 0.7 % (0-1); Eosinophil# 0.11 X10^3/uL; Eosinophils% 1.3 % (0-5); Hematocrit 36.5 % (37-47); Hemoglobin 11.7 g/dL (12.0-15.0); Lymphocyte # 2.81 X10^3/ul (0.83-4.51); Lymphocyte % 34.3 % (19-41); Mean Corp Hgb Conc 32.1 g/dL (32-36); Mean Corpuscular Hgb 26.2 pg (27.0-32.0); Mean Corpuscular Volume 81.8 fL (81-99); Mean Platelet Vol. 9.1 fl (6.2-12.0); Monocyte# 0.81 X10^3/uL; Monocyte% 9.9 % (0-10); NRBC Flagged by Analyzer 0.2 % (0-5); Neutrophil # 4.19 X10^3/uL (2.7-7.7); Neutrophil % 51.1 % (47-70); Platelet Count 363 K/mm3 (150-450); RBC Distribution Width CV 14.1 % (11.6-14.6); RBC Distribution Width SD 41.2 fl (35.1-43.9); Red Blood Count 4.46 M/mm3 (4.2-5.4); White Blood Count 8.2 K/mm3 (4.4-11.0)
[2022-06-29 06:44] LABS: Anion Gap 7 (5-15); BUN 13 mg/dL (7-18); BUN/Creat Ratio 18.4 RATIO (10-20); Calcium,Total 8.4 mg/dL (8.5-10.1); Chloride 105 mmol/L (98-107); Creatinine, Serum 0.71 mg/dL (0.55-1.02); EST Glomerular Filtration Rate 103 mL/min (>60); Est Glom Filt Rate - Afr Amer 125 mL/min (>60); Estimated Creatinine Clearance 108.46 ml/min; Glucose 192 mg/dL (74-106); Potassium 3.9 mmol/L (3.5-5.1); Sodium Level 136 mmol/L (136-145)
[2022-06-29 06:45] LABS: Bedside Glucose 174 mg/dL (74-106)
[2022-06-29] MEDS: DAKIN'S SOL HALF STRENGTH (=0.25%) 1 APPLIC TOPICAL (07:43)
--- NOTE | 2022-06-29 08:13 | WOUNDNOTE ---
wound photo: right foot
--- NOTE | 2022-06-29 08:14 | WOUNDNOTE ---
wound photo: right foot
[2022-06-29 08:39] VITALS: BP 130/90; PULSE 81; RESP 16; TEMP 36.4; O2SAT 99
[2022-06-29] MEDS: Enoxaparin 40 MG/0.4 ML Syringe SC (08:45)
[2022-06-29 12:05] LABS: Bedside Glucose 251 mg/dL (74-106)
--- NOTE | 2022-06-29 12:39 | PCM.DC.SUM ---
Providers Date of Admission: 06/24/22 Date of Discharge: 06/29/22 Primary Care Physician: Dr. Sophy Chi Consultations 06/24/22 16:55 Consult: Onc/Wound/air director Routine Comment: Consult: Podiatry Routine Consulting Provider: Andres Matias Reason for Consult: right diabetic foot ulcer EMERGENT Consult: No Notified: Yes Date Notified: 06/24/22 Time Notified: 14:33 Method of Notification: Text 06/25/22 09:15 Consult: Infectious Disease Routine Consulting Provider: Charles Green Reason for Consult: antibiotic/PICC line recommendations, possible osteomylitis EMERGENT Consult: No MD Notified: Yes Date Notified: 06/25/22 Time Notified: 09:15 Method of Notification: Text Reason For Visit: DIABETIC FOOT ULCER Diagnosis Discharge Diagnosis (1) Lactic acidosis: Status: Acute Code(s): E87.20 - Acidosis, unspecified (2) Cellulitis and abscess of right lower extremity: Status: Acute Code(s): L03.115 - Cellulitis of right lower limb; L02.415 - Cutaneous abscess of right lower limb (3) Diabetes mellitus with diabetic polyneuropathy: Status: Acute Code(s): E11.42 - Type 2 diabetes mellitus with diabetic polyneuropathy Medications at Discharge Home Medications albuterol sulfate 90 mcg/actuation aerosol inhaler (Ventolin HFA) 1 inh inhalation Q4H SOB 04/06/22 docusate sodium 100 mg capsule (Dulcolax Stool Softener (docusate)) 100 mg PO BID PRN stool 04/06/22 metformin 500 mg tablet 1,000 mg PO BID DM 06/24/22 amoxicillin 875 mg-potassium clavulanate 125 mg tablet 1 tab PO BID #20 tabs 06/29/22 doxycycline hyclate 100 mg capsule 100 mg PO BID 10 days #20 caps 06/29/22 Hospital Course Operations - (Debridement of all nonviable, infected, and necrotic soft tissue and bone right foot with 5th toe and partial 5th metatarsal amputation) Procedures None Summary of Care Provided Minutes Spent on Discharge: 37 Hospital Course: Ms. Givens is a 32-year-old white female who presented to the emergency department was [facility] on 06/24/2022 secondary to a wound on her right foot. She evidently had seen the occupational therapy director in the office today prior to admission and he was concerned about the pain, redness, and swelling on the lateral aspect of her right foot. She evidently had recent right foot surgery done and was placed on vancomycin at that time. Her occupational therapy director from recommended at that time she present to the emergency department however she waited a day. Vitals in the ED were BP of 144/95, NV of 105, RR of 17 and temp of 98F, saturating at 96% on room air. CBC showed wbc of 9.1 but was otherwise unremarkable. Chemistry was also unremarkable; lactic acid was 4.8 and glucose was 318. Foot xray showed soft tissue ulceration overlying the lateral aspect of the distal head of the 5th metatarsal. She is being admitted to be managed for right diabetic foot ulceration, with concern for osteomyelitis. She was seen in consultation by podiatry and infectious disease during her hospital course. An MRI of her right lower extremities demonstrated findings consistent with osteomyelitis of the fifth metatarsal head and soft tissue abnormality of the fifth metatarsal head and plantar soft tissues at the third metatarsal space. Culture obtained on admission showed MRSA on PCR and she was maintained on vancomycin and Zosyn with antibiotics initially. She maintained nonweightbearing status throughout her hospital course and was taken the operating room on 06/26/2022 at which time debridement of all nonviable, infected, and necrotic soft tissue and bone of the right foot with 1/5 toe and partial fifth metatarsal amputation was performed. ID did see the patient as noted and recommended a PICC line be placed for IV outpatient antibiotics however the patient refused to leave the hospital with a PICC line and indicated she would only go on oral therapy. We did get a hemoglobin A1c during her hospital course and it was 10.6. We did advise her on the importance of good blood sugar control and she voiced understanding. Finalized cultures were pending at the time of discharge however per ID recommendations as the patient was demanding to be discharged on 06/29/2022 she was sent on oral doxycycline and Augmentin to complete 1 more week of therapy. She is to follow-up with podiatry in 1 week and to maintain nonweightbearing status until she is notified otherwise by Dr. Matias. She was informed that there is increased risk without IV antibiotics that this infection could get worse and she indicated she was willing to take that risk. Discharge diagnoses: Right foot osteomyelitis/cellulitis/soft tissue infection DM-2 uncontrolled Diabetic neuropathy Lactic acidosis-resolved Physical Exam Const alert, oriented x3 and no apparent distress Constitutional Narrative: Obese, younger middle-aged white female, extremely agitated, sitting up in bed, angry demanding she be discharged later today, nontoxic-appearing General Appearance: cooperative, comfortable, well kempt and well developed Orientation / Consciousness: awake, oriented to person, oriented to place and oriented to time Exam Limitations: no limitations Nutritional Appearance: obese HEENT normocephalic, head/scalp atraumatic, hearing grossly normal bilaterally and moist oral mucous membranes HEENT Narrative: Mallampati 3, no thrush Eyes PERRL, EOMs intact bilaterally and conjunctivae normal Eyes Narrative: No scleral icterus Neck supple Neck Narrative: Trachea midline, no thyroid enlargement, neck is short and thick Resp normal respiratory effort, no retractions, no use of accessory muscles and clear to auscultation bilaterally Auscultation: Negative for crackles, rales, rhonchi or wheezes Cardio regular rate, regular rhythm, S1 normal heart sound, S2 normal heart sound, no murmurs, no rub, no gallops and no clicks GI normal to inspection, nondistended, normoactive bowel sounds, soft to palpation, non-tender and non-distended Extremity no clubbing, cyanosis or edema Extremity Narrative: 2+ pedal pulses, right lower extremity dressing in place and wound was not able to be visualized Skin no jaundice Skin Narrative: Wound as noted above Neuro oriented x3, CN's II-XII intact bilaterally, moves all extremities and no focal motor deficits Neuro Narrative: Bilateral lower extremity neuropathy Speech: speech normal Psych Psych Narrative: Patient is very agitated and angry Weight / BMI Weight Weight: 107.1 kg Body Mass Index (BMI) 38.1 ABG / Lab / Microbiology Data Result Diagrams: 06/29/22 05:45 06/29/22 05:45 Laboratory: Laboratory Results - last 24 hr 06/28/22 16:18: POC Glucose 222 H 06/28/22 21:22: POC Glucose 262 H 06/29/22 05:29: POC Glucose 174 H 06/29/22 05:45: Sodium 136, Potassium 3.9, Chloride 105, Carbon Dioxide 24.0, Anion Gap 7, BUN 13, Creatinine 0.71, Estim Creat Clear Calc 108.46, Est GFR (MDRD) Af Amer 125, Est GFR (MDRD) Non-Af 103, BUN/Creatinine Ratio 18.4, Glucose 192 H, Calcium 8.4 L 06/29/22 05:45: WBC 8.2, RBC 4.46, Hgb 11.7 L, Hct 36.5 L, MCV 81.8, MCH 26.2 L, MCHC 32.1, RDW Std Deviation 41.2, RDW Coeff of John 14.1, Plt Count 363, MPV 9.1, Immature Gran % (Auto) 2.700 H, Neut % (Auto) 51.1, Lymph % (Auto) 34.3, [place] % (Auto) 9.9, Eos % (Auto) 1.3, Baso % (Auto) 0.7, Absolute Neuts (auto) 4.2, Absolute Lymphs (auto) 2.81, Nucleated RBC % 0.2 06/29/22 11:31: POC Glucose 251 H Microbiology: Microbiology 06/26/22 08:50 Bone - 5th Toe Gram Stain - Final 06/26/22 08:50 Bone - 5th Toe Wound Culture - Final No growth aerobically. 06/26/22 08:50 Bone - 5th Toe Anaerobic Culture - Final No anaerobic bacteria isolated. 06/26/22 08:50 Bone - 5th Toe Gram Stain - Final 06/26/22 08:50 Bone - 5th Toe Wound Culture - Final No growth aerobically. 06/26/22 08:50 Bone - 5th Toe Anaerobic Culture - Preliminary No growth in 48 hours. 06/24/22 15:15 Urine, Clean Catch Urine Culture - Final Culture exhibits no growth. D/C Instructions Discharge Diet: 1800 Calorie Control Diet Weight Bearing Status: No weight bearing (Right lower extremity until Dr. Matias otherwise notifies you) Change Dressing in: 1 day Additional Dressing/Incision Instructions: Dakin's wet to dry gauze dressing with overlying Curlex and Selvin bandage with daily dressing changes Additional Instructions: Keep foot elevated while not upright Meaningful Use Info Meaningful Use Diagnoses (Choose all that apply): None applicable Discharge Plan Admission Admit Date/Time: 06/24/22 14:19 Primary Reason for Your Visit: Right foot wound Attending Provider: Gale Lr Primary Care Provider: Sophy Chi Consulting Providers: Andres Matias ; Charles Green ; Brenda Rao Discharge Orders/Prescriptions Prescriptions: New doxycycline hyclate 100 mg capsule 100 mg PO BID 10 Days Qty: 20 0RF amoxicillin-pot clavulanate 875-125 mg tablet 1 tab PO BID Qty: 20 0RF Continued albuterol sulfate [Ventolin HFA] 90 mcg/actuation HFA aerosol inhaler 1 inh INHALATION Q4H docusate sodium [Dulcolax Stool Softener (dss)] 100 mg capsule 100 mg PO BID PRN (Reason: stool) metformin 500 mg tablet 1,000 mg PO BID Referrals / Follow Up: Andres Matias DPM [Med Staff - Active Staff] - In 1 Week (Call later today or tomorrow to make an appointment to be seen) Sophy Chi [Primary Care Provider] - Within 2 Weeks Disposition Disposition (needs filled in before D/C Order can be placed): Home, Self Care Charges/Coding Visit Charges Inpatient E&M: 74306 Disch Hosp
--- NOTE | 2022-06-29 13:00 | CASEMGMT ---
Addendum entered by Addie Santos 06/29/22 16:11: Call received from Drew @ [facility]. She states they were able to contact pt, but that she informed them she is at her grandmothers and she is not going home. Drew states she informed pt that [facility] could not see her @ her grandmothers location and pt stated she did not need them to come. Addendum entered by Addie Santos 06/29/22 14:32: Annie, nurse from [facility], called to inquire if pt going home to her house or to her grandmothers. Annie made aware pt will be @ her own home for [facility]. Addendum entered by Addie Santos 06/29/22 13:13: RYNE LUJAN to room. Pt resting in bed. She was made aware [facility] notified of her being discharged today. She declines wanting therapy. She inquired when [facility] would be. RYNE LUJAN informed her they would contact her to make arrangements for appt, but they usually try to see pt's w/in 24-48 hrs of discharge. RYNE LUJAN advised her, if she has not heard from them by tomorrow, to call them. [facility] contact information has been provided. Pt voices understanding and denies having further discharge concerns/needs. Original Note: RYNE LUJAN NOTE: TC to Drew @ [facility]. No answer. VM left for her to inform her pt is discharging home today on PO atb's. Discharge packet/instructions and summary sent to [facility] via [facility] at this time. Nikole ANTONIO RN, CM
--- NOTE | 2022-06-29 14:14 | PCM.PN.ID ---
Physical Exam Narrative Feeling better, no fever, no n/v/d. Const no apparent distress Resp normal air movement and clear to auscultation bilaterally Cardio regular rate and regular rhythm GI soft to palpation, non-tender and non-distended Skin Skin Narrative: reviewed photos ID ID: Route of nutrition/ use of supplements: [] Nutritional Intake: [] IV Site: [] [place] Catheter: [] Assessment & Plan Assessment/Plan (1) Diabetes mellitus with diabetic polyneuropathy: (2) Osteomyelitis: PLAN: R foot osteo - wound cx with GBS, pcr with mrsa. 03/2022 had MRSA foot osteo. Taken to OR 06/26/[address] Matias for I&D. Surg cx neg. On empiric vanc/zosyn. Pt refuses to leave hospital with picc. With clearance cxs neg so far, ok for d/c home with 10 days po doxy/augmentin. ID followup as needed. Will follow, d/w primary team
== END 2022-06-29 13:23 | disposition home health service (06) | DRG 314 ==
LOC: ED 14:42 → MS3 14:57
PROVIDERS: Anesthesiology; Podiatrist; Admitting Provider Student in an Organized Health Care Education/Training Program; Emergency Provider Emergency Medicine; Visit Provider Internal Medicine
PROC: 0Y6X0Z3 Detachment at Right 5th Toe, Low, Open Approach (ICD-10-PCS; principal; 2022-06-26 07:00)
DX: E11.628 Type 2 diabetes mellitus with other skin complications (principal); E87.20 Acidosis, unspecified; L02.415 Cutaneous abscess of right lower limb; L97.514 Non-pressure chronic ulcer of other part of right foot with necrosis of bone; L03.115 Cellulitis of right lower limb; E11.69 Type 2 diabetes mellitus with other specified complication; E11.621 Type 2 diabetes mellitus with foot ulcer; E11.65 Type 2 diabetes mellitus with hyperglycemia; E11.42 Type 2 diabetes mellitus with diabetic polyneuropathy; Z79.4 Long term (current) use of insulin; M86.8X7 Other osteomyelitis, ankle and foot; I10 Essential (primary) hypertension; F17.210 Nicotine dependence, cigarettes, uncomplicated; B95.62 Methicillin resistant Staphylococcus aureus infection as the cause of diseases classified elsewhere; Z79.84 Long term (current) use of oral hypoglycemic drugs; Z79.899 Other long term (current) drug therapy
CPT/HCPCS: 36415; 73630; 73718; 80048; 80053; 80202; 81001; 81025; 82962; 83036; 83605; 85025; 87015; 87040; 87070; 87075; 87077; 87086; 87102; 87116; 87176; 87186; 87205; 87206; 87640; 88304; 88305; 88311; 93005; 97161; 97165; 97530; 97802; 99285; 99406; J7030; J7040; A4216; J2405

== ENCOUNTER 2022-08-12 15:26 | Inpatient (IN) | payer MEDICAID, SELFPAY ==
[2022-08-12 15:27] VITALS: BP 129/86; PULSE 137; RESP 16; TEMP 36.4; O2SAT 98; BMI 37.9
--- NOTE | 2022-08-12 15:41 | EX.ED.DYSGE1 ---
HPI History of Present Illness Chief Complaint: Hyperglycemia Narrative Narrative: 32-year-old female presenting with hyperglycemia. She states that she was at [facility] and they were unable to check her blood sugar because they could not find a glucometer because she was tachycardic and sent her to the emergency room for fear that she might be hypoglycemic. Patient does report that she has had some elevated blood sugars in the 200s range in the last couple of days. He does feel little bit lightheaded and a little bit dizzy at times. She has had some abdominal cramping and nausea. She does not state this is on typical for her because she has a little bit of gastroparesis. Patient had a fever that she knows of. She states that previously she had cellulitis on her right foot which is completely healing and doing well. [facility] Medical History (Updated 08/12/22 @ 21:[address] Valencia Urbina MD) Anxiety Asthma Constipation Depression Diabetes Diabetes mellitus with diabetic polyneuropathy Hypertension Type 2 diabetes mellitus with foot ulcer Home Medications albuterol sulfate 90 mcg/actuation aerosol inhaler (Ventolin HFA) 1 inh inhalation Q4H SOB 04/06/22 [History Last Taken 06/24/22] docusate sodium 100 mg capsule (Dulcolax Stool Softener (docusate)) 100 mg PO BID PRN stool 04/06/22 [History Last Taken 06/24/22] metformin 500 mg tablet 1,000 mg PO BID DM 06/24/22 [History Last Taken 06/24/22] insulin glargine 100 unit/mL (3 mL) subcutaneous pen (Lantus Solostar U-100 Insulin) 15 unit subcut BID 08/12/22 [History Last Taken Unknown] Allergy/AdvReac Type Severity Reaction Status Date / Time No Known Allergies Allergy Verified 08/12/22 15:27 Family History Other Bleeding disorder Cancer Diabetes Hypertension Surgical History Hx of foot surgery Social History Smoking Status: Current some day smoker tobacco type: cigarettes alcohol intake: never substance use type: does not use what type of physical activity do you participate in: none ROS ROS ED Constitutional Constitutional ED: Denies chills or fever(s) Eyes Eyes: Denies change in vision or diplopia ENT ENT ED: Denies rhinorrhea or sore throat Cardiovascular Cardiovascular: Denies chest pain or palpitations Respiratory/Chest Respiratory/Chest: Denies cough or dyspnea Gastrointestinal Gastrointestinal: Reports abdominal pain, nausea and vomiting Genitourinary Genitourinary ED: Denies dysuria or hematuria Musculoskeletal Musculoskeletal: Denies arthralgias or back pain Integumentary Denies abscess or Abrasions Neurologic Neurologic: Denies headache(s) or paresthesias Psychiatric Psychiatric: Denies anxiety or depression Endocrine Endocrinology: Denies cold intolerance or heat intolerance EXAM Physical Exam Const Vital Signs: 08/12/22 15:27 08/12/22 17:34 Temperature 97.5 F L Temperature Source Temporal Pulse Rate 137 H Respiratory Rate 16 Respiratory Pattern Normal Blood Pressure 129/86 H Blood Pressure Mean 100 Pulse Ox 98 Oxygen Delivery Method Room Air Positive well nourished General Appearance ED: NAD HEENT Reports moist mucous membranes and dry mucous membranes trauma Mouth ED: Yes dry mucous membranes Mouth: dry mucous membranes Eyes PERRL and EOMs intact bilaterally Chest Wall inspection of chest normal and palpation of chest normal Resp normal respiratory effort and clear to auscultation bilaterally Auscultation: Negative for rales, rhonchi or wheezes Cardio regular rhythm Rate: tachycardic GI non-distended Palpation: tender LUQ and periumbilical Back/Spine no CVA tenderness Neuro oriented x3 and CN's II-XII intact bilaterally Sensorium / Orientation: alert Motor Exam: strength 5/5 throughout Psych mental status grossly normal Skin no rashes or lesions noted and no wounds General Skin Exam: Negative for jaundice MDM MDM MDM Narrative Medical decision making narrative: 32-year-old female presenting with hyperglycemia. She is significantly tachycardic when she arrives. This reason patient was given 2 L of IV fluids. I did obtain a CBC which shows a leukocytosis of 18.9. Hemoglobin 11 point platelets 453. CMP to assess liver enzymes, renal function, electrolytes. Sodium slightly low at 130 however patient is hyperglycemic at 230. Sodium slightly low at 95. Creatinine elevated 1.11. Again patient was given 2 L of IV fluids. Acetone level was negative patient does not have an anion gap so I do not believe she is in DKA. She was assessed due to tachycardia and on my interpretation this is sinus tachycardia with a ventricular rate of 113 bpm. Chest x-ray on my interpretation showed no acute cardiopulmonary process. Radiologist are present and agrees. Patient significant leukocytosis as well as nausea and abdominal pain I did obtain a CT of the abdomen pelvis with IV contrast which showed findings suggestive of inflammatory multifocal lobar nephronia of the right kidney. Multiple subcentimeter retroperitoneal nodes of uncertain etiology but stable since previous study most likely inflammatory. Case was discussed with Dr. Bronson and he did think the patient needed medical admission. He recommended treating it like pyelonephritis. I spoke with the hospitalist. Patient was given Rocephin IV. Her vital signs have normalized. Urine culture was sent. Impression: 1. Leukocytosis 2. Nausea 3. Abdominal pain 4. Right-sided nephronia Lab Data Attestation: I reviewed the patient's lab results. Labs: Laboratory Results - last 24 hr 08/12/22 08/12/22 08/12/22 16:22 16:22 16:22 WBC 18.9 H RBC 4.35 Hgb 11.4 L Hct 34.0 L MCV 78.2 L MCH 26.2 L MCHC 33.5 RDW Std Deviation 36.9 RDW Coeff of John 12.9 Plt Count 453 H MPV 9.3 Immature Gran % (Auto) 1.000 H Neut % (Auto) 69.8 Lymph % (Auto) 20.1 [place] % (Auto) 8.7 Eos % (Auto) 0.1 Baso % (Auto) 0.3 Absolute Neuts (auto) 13.2 H Absolute Lymphs (auto) 3.81 Nucleated RBC % 0 Differential Comment SCANNED Diff Path Review May foll Sodium 130 L Potassium 3.9 Chloride 95 L Carbon Dioxide 23.0 Anion Gap 12 BUN 8 Creatinine 1.11 H Estim Creat Clear Calc 69.38 Est GFR (MDRD) Af Amer 74 Est GFR (MDRD) Non-Af 61 BUN/Creatinine Ratio 7.2 L Glucose 230 H Calcium 9.6 Magnesium 1.6 Total Bilirubin 0.50 AST 20 ALT 13 Alkaline Phosphatase 136 H Troponin I High Sens 6 Total Protein 9.2 H Albumin 2.9 L Globulin 6.3 H Albumin/Globulin Ratio 0.5 L Urine Color Urine Clarity Urine pH Ur Specific [place] Urine Protein Urine Glucose (UA) Urine Ketones Urine Occult Blood Urine Nitrite Urine Bilirubin Urine Urobilinogen Ur Leukocyte Esterase Urine RBC Urine WBC Ur Squamous Epith Cells Urine Bacteria Urine Mucus Acetone Level NEGATIVE POC Glucose 08/12/22 08/12/22 08/12/22 16:22 16:30 17:32 WBC RBC Hgb Hct MCV MCH MCHC RDW Std Deviation RDW Coeff of John Plt Count MPV Immature Gran % (Auto) Neut % (Auto) Lymph % (Auto) [place] % (Auto) Eos % (Auto) Baso % (Auto) Absolute Neuts (auto) Absolute Lymphs (auto) Nucleated RBC % Differential Comment Diff Path Review Sodium Potassium Chloride Carbon Dioxide Anion Gap BUN Creatinine Estim Creat Clear Calc Est GFR (MDRD) Af Amer Est GFR (MDRD) Non-Af BUN/Creatinine Ratio Glucose Calcium Magnesium Total Bilirubin AST ALT Alkaline Phosphatase Troponin I High Sens Total Protein Albumin Globulin Albumin/Globulin Ratio Urine Color Yellow Urine Clarity Clear Urine pH 6.0 Ur Specific [place] 1.010 Urine Protein 100 H Urine Glucose (UA) 50 H Urine Ketones 15 H Urine Occult Blood 150 H Urine Nitrite Negative Urine Bilirubin Negative Urine Urobilinogen Normal Ur Leukocyte Esterase 100 H Urine RBC 0 SEEN Urine WBC 10-25 SEEN Ur Squamous Epith Cells 0-5 SEEN Urine Bacteria 0 SEEN Urine Mucus 0 SEEN Acetone Level POC Glucose 238 H 207 H 08/12/22 18:50 WBC RBC Hgb Hct MCV MCH MCHC RDW Std Deviation RDW Coeff of John Plt Count MPV Immature Gran % (Auto) Neut % (Auto) Lymph % (Auto) [place] % (Auto) Eos % (Auto) Baso % (Auto) Absolute Neuts (auto) Absolute Lymphs (auto) Nucleated RBC % Differential Comment Diff Path Review Sodium Potassium Chloride Carbon Dioxide Anion Gap BUN Creatinine Estim Creat Clear Calc Est GFR (MDRD) Af Amer Est GFR (MDRD) Non-Af BUN/Creatinine Ratio Glucose Calcium Magnesium Total Bilirubin AST ALT Alkaline Phosphatase Troponin I High Sens Total Protein Albumin Globulin Albumin/Globulin Ratio Urine Color Urine Clarity Urine pH Ur Specific [place] Urine Protein Urine Glucose (UA) Urine Ketones Urine Occult Blood Urine Nitrite Urine Bilirubin Urine Urobilinogen Ur Leukocyte Esterase Urine RBC Urine WBC Ur Squamous Epith Cells Urine Bacteria Urine Mucus Acetone Level POC Glucose 203 H Radiography Diagnostic Testing: Clinical Impression(s) from Imaging Studies Chest X-Ray 08/12/22 17:18 IMPRESSION: Normal x-ray examination of the chest. 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 Multiple subcentimeter retroperitoneal nodes of uncertain etiology but stable since previous study most likely inflammatory Electronically Signed: Andres Ramos MD at 18:42 EST , Discharge Plan Disposition Disposition: Acute Care Hospital [facility] Discharge Date/Time: 08/12/22 22:03
--- NOTE | 2022-08-12 15:47 | EKG12_ITS ---
Test Reason : HYPERGLYCEMIA Blood Pressure : / mmHG Vent. Rate : 113 BPM Atrial Rate : 113 BPM P-R Int : 132 ms QRS Dur : 078 ms QT Int : 316 ms P-R-T Axes : 036 000 030 degrees QTc Int : 433 ms Sinus tachycardia Minimal voltage criteria for LVH, may be normal variant ( R in aVL ) Borderline ECG Confirmed by JUDSON BOYCE, VARSHA ([id number]), metropolitan editor KAYLA PRATHER ([id number]) on 08/14/2022 8:58:12 AM Referred By: Confirmed By:JUNI ROPER MD
[2022-08-12] MEDS: 0.9% Normal Saline 1,000 ML 999 ML IV ×3 (16:33→22:00)
[2022-08-12 16:35] LABS: Bacteria 0 SEEN /hpf (None Seen); Mucous, Urine 0 SEEN /hpf (<or=2+); Red Blood Cells-Urine 0 SEEN /hpf (0-5)
[2022-08-12 16:40] LABS: Absolute Lymphocyte Count 3.81 X10^3/uL (0.83-4.51); Absolute Neutrophil Count 13.2 X10^3/uL (2.0-7.7); Basophil# 0.05 X10^3/uL; Basophil% 0.3 % (0-1); Eosinophil# 0.01 X10^3/uL; Eosinophils% 0.1 % (0-5); Hemoglobin 11.4 g/dL (12.0-15.0); Lymphocyte # 3.81 X10^3/ul (0.83-4.51); Lymphocyte % 20.1 % (19-41); Mean Corp Hgb Conc 33.5 g/dL (32-36); Mean Corpuscular Hgb 26.2 pg (27.0-32.0); Mean Corpuscular Volume 78.2 fL (81-99); Mean Platelet Vol. 9.3 fl (6.2-12.0); Monocyte# 1.65 X10^3/uL; Monocyte% 8.7 % (0-10); NRBC Flagged by Analyzer 0 % (0-5); Neutrophil # 13.23 X10^3/uL (2.7-7.7); Neutrophil % 69.8 % (47-70); POSITIVE DIFFERENTIAL YES; Platelet Count 453 K/mm3 (150-450); RBC Distribution Width CV 12.9 % (11.6-14.6); RBC Distribution Width SD 36.9 fl (35.1-43.9); Red Blood Count 4.35 M/mm3 (4.2-5.4); White Blood Count 18.9 K/mm3 (4.4-11.0)
[2022-08-12 16:43] LABS: Color, Urine Yellow (Yellow); Glucose, Dipstick 50 mg/dl (Normal); Ketone-Dipstick 15 mg/dl (Negative); Leukocyte Esterase-Dipstick 100 /ul (Negative); Nitrite-Dipstick Negative (Negative); Occult Blood-Urine 150 /ul (Negative); Protein-Dipstick 100 mg/dl (Negative); Urine Bilirubin Dipstick Negative (Negative); Urine Clarity Clear (Clear); Urine Urobilinogen Normal (Normal)
[2022-08-12 16:55] LABS: Bedside Glucose 238 mg/dL (74-106)
[2022-08-12 16:58] LABS: White Blood Cells 10-25 SEEN /hpf (0-5)
[2022-08-12 16:59] LABS: Squamous Epithelial Cells - UA 0-5 SEEN /hpf (5-10)
[2022-08-12 17:04] LABS: ALB/GLOB Ratio 0.5 RATIO (0.9-2.4); AST(SGOT) 20 U/L (15-37); Alanine Aminotransfer ALT/SGPT 13 U/L (13-56); Albumin, Serum 2.9 g/dL (3.2-5.0); Alkaline Phosphatase 136 U/L (45-117); Anion Gap 12 (5-15); BUN 8 mg/dL (7-18); BUN/Creat Ratio 7.2 RATIO (10-20); Calcium,Total 9.6 mg/dL (8.5-10.1); Chloride 95 mmol/L (98-107); Creatinine, Serum 1.11 mg/dL (0.55-1.02); EST Glomerular Filtration Rate 61 mL/min (>60); Est Glom Filt Rate - Afr Amer 74 mL/min (>60); Estimated Creatinine Clearance 69.38 ml/min; Globulin 6.3 g/dL (2.2-4.2); Glucose 230 mg/dL (74-106); Magnesium 1.6 mg/dL (1.6-2.6); Potassium 3.9 mmol/L (3.5-5.1); Protein, Total 9.2 g/dL (6.4-8.2); Sodium Level 130 mmol/L (136-145); Troponin-I HS 6 pg/mL (3.0-54.0)
--- NOTE | 2022-08-12 17:18 | RAD_ITS ---
STUDY: X-RAY CHEST REASON FOR EXAM: Female, 32 years old. tshcycardia TECHNIQUE: AP portable COMPARISON: None. FINDINGS: The lungs are clear and expanded. There is no demonstrated pleural abnormality. Normal size heart. Normal mediastinum and chey. Normal visualized pulmonary arteries. Normal visualized aortic arch and descending thoracic aorta. Normal visualized thoracic spine. Normal visualized ribs, clavicles, and shoulders. There is no demonstrated abnormality of the visualized soft tissue structures of the upper abdomen. RAD/Chest 1 View (Portable) IMPRESSION: Normal x-ray examination of the chest. Electronically Signed: Andres Raoms MD at 17:39 EST ,
[2022-08-12 17:19] LABS: Differential Indicated SCAN CRITERIA MET
[2022-08-12 17:24] LABS: Differential Comment SCANNED
--- NOTE | 2022-08-12 17:27 | CT_ITS ---
STUDY: CT ABDOMEN AND PELVIS WITH CONTRAST REASON FOR EXAM: Female, 32 years old. abdominal pain RADIATION DOSAGE (If Supplied By Facility): CTDIvol = ( 16.31 ) mGy, DLP = ( 1770.38 ) mGycm TECHNIQUE: Transaxial images were obtained from the dome of the diaphragm to the symphysis pubis without oral contrast. IV 100mL Isovue-370 was administered. Sagittal and coronal images were reconstructed. Individualized dose optimization techniques were used for this CT. COMPARISON: February 01, 2022 FINDINGS: The visualized lung bases are unremarkable. The visualized portions of the heart are within normal limits. Normal liver. Normal gallbladder and extrahepatic biliary system. Mild nonspecific elongation of the spleen.. Normal pancreas. Normal bilateral adrenal glands. No evidence for renal obstruction or focal mass however there is scarring of the right kidney as well as focal areas of diminished attenuation in the cortex with associated stranding in the fat possibly representing inflammatory lobar nephronia. Normal visualized stomach. Normal small intestine. Diffuse fecal retention noted within the colon.. No evidence for acute appendicitis. Normal abdominal aorta. Normal inferior vena cava. There are multiple small subcentimeter nodules in the retroperitoneal fat of uncertain etiology possibly representing benign zach enlargement.. Incompletely distended thick walled bladder of uncertain significance.. Small left adnexal cyst measuring approximately 1.8 x 2 cm likely ovarian and smaller cyst in the right ovary. Normal abdominal wall. Lumbar spine demonstrates mild degenerative change The changes of the right kidney are new since previous exam. The multiple nodular densities no acute appearing are not significantly changed.. 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 Multiple subcentimeter retroperitoneal nodes of uncertain etiology but stable since previous study most likely inflammatory Electronically Signed: Andres Ramos MD at 18:42 EST ,
[2022-08-12 17:56] LABS: Bedside Glucose 207 mg/dL (74-106)
[2022-08-12 19:11] LABS: Bedside Glucose 203 mg/dL (74-106)
[2022-08-12] MEDS: Ceftriaxone 1 GM/50 ML BAG IV (20:09)
--- NOTE | 2022-08-12 20:09 | PCM.HP.STD ---
HPI - General General Date of Admission: 08/12/22 Date of Service: 08/12/22 Chief Complaint: Hyperglycemia, tachycardia HPI Narrative SHOLA PATTON, is a 32 F who presents with the above. Patient has past medical history of type II DM, recent discharge from the hospital on 06/29/22 for right diabetic foot infection status post right toe amputation. Patient was referred to the emergency room from [facility] for hyperglycemia and tachycardia. Patient denies any fever or chills. Her wound in the right foot is healed. She stated that at home, her blood sugar was 240 in the morning. She denied any dizziness or palpitations or chest pain or shortness of breath. She admits to epigastric discomfort, nausea and an episode of vomiting in the emergency room. She denied any flank pain or dysuria or lower abdominal discomfort Vital in the ED showed blood pressure 129/86, heart rate 137, respiratory rate 16, temperature 97.5 F, oxygen sat 98% on room air. WBC 18.9, with neutrophilia, hemoglobin 11.4, platelet count 453, sodium 130 potassium 3.9, chloride 95, bicarbonate 23, BUN 8, creatinine 1.11, previous creatinine 0.71, blood sugar is 230, magnesium is 1.6. UA is clear, ketones positive, glucose positive, nitrate negative, leukocyte esterase 100, bacteria 0, WBC count 10-25. Acetone negative. Admitting chest x-ray is unremarkable. CT of the abdomen pelvis showed scarring in the right kidney, focal areas of diminished attenuation in the cortex associated with stranding in the fat possible represent inflammatory lobar nephronia [facility] Medical History (Updated 08/12/22 @ 21:[address] Valencia Urbina MD) Anxiety Asthma Constipation Depression Diabetes Diabetes mellitus with diabetic polyneuropathy Hypertension Type 2 diabetes mellitus with foot ulcer Home Medications albuterol sulfate 90 mcg/actuation aerosol inhaler (Ventolin HFA) 1 inh inhalation Q4H SOB 04/06/22 [History Last Taken 06/24/22] docusate sodium 100 mg capsule (Dulcolax Stool Softener (docusate)) 100 mg PO BID PRN stool 04/06/22 [History Last Taken 06/24/22] metformin 500 mg tablet 1,000 mg PO BID DM 06/24/22 [History Last Taken 06/24/22] insulin glargine 100 unit/mL (3 mL) subcutaneous pen (Lantus Solostar U-100 Insulin) 15 unit subcut BID 08/12/22 [History Last Taken Unknown] Allergy/AdvReac Type Severity Reaction Status Date / Time No Known Allergies Allergy Verified 08/12/22 15:27 Family History Other Bleeding disorder Cancer Diabetes Hypertension Surgical History Hx of foot surgery Social History Smoking Status: Current some day smoker tobacco type: cigarettes alcohol intake: never substance use type: does not use what type of physical activity do you participate in: none ROS ROS Narrative Constitutional:Denies: Anorexia, Chills, Fever, Night Sweats, Weight Change Eyes: Denies: Blurred vision, Cataracts, Conjunctivae Inflammation, Pain, Redness, Vision Change HEENT: Denies: Difficulty Hearing, Difficulty Swallowing, Head Aches, Hearing Changes, Sinus Congestion, Sinus Drainage Cardiovascular: Denies: Chest Pain, Orthopnea, Palpitations Respiratory: Denies: Cough, Shortness of breath at rest, Sputum production Gastrointestinal: See HPI Genitourinary: Denies: Dysuria Musculoskeletal: Denies: Joint Pain, Joint stiffness, Joint swelling, Joint Tenderness Skin: Denies: Rash, Wounds Neurological: Denies: Numbness, Tingling, Focal weakness Vital Signs Vital Signs Vital Signs: 08/12/22 15:27 08/12/22 17:34 Temperature 97.5 F L Temperature Source Temporal Pulse Rate 137 H Respiratory Rate 16 Respiratory Pattern Normal Blood Pressure 129/86 H Blood Pressure Mean 100 Pulse Ox 98 Oxygen Delivery Method Room Air Weight Weight: 106.594 kg Body Mass Index (BMI) 37.9 Physical Exam Narrative General: Alert, Oriented x3, Cooperative, No apparent distress HEENT: Atraumatic, PERRLA, EOMI, Normocephalic Oral: Moist Mucosa Neck: Supple Lungs: Normal air movement, Diminished Cardiovascular: Regular rate, Regular Rhythm, Normal S1, Normal S2, No murmurs Abdomen: Bowel Sounds Present, Soft, Non Tender, Non-Distended, No Hepato-splenomegaly Extremities: No edema Skin: No rashes Neurological: Cranial nerves II-XII grossly intact, Neuro grossly intact Psych/Mental Status: Normal Affect, Appropriate Results Lab / Micro Data Result Diagrams: 08/12/22 16:22 08/12/22 16:22 Labs: Laboratory Results - last 24 hr 08/12/22 16:22: WBC 18.9 H, RBC 4.35, Hgb 11.4 L, Hct 34.0 L, MCV 78.2 L, MCH 26.2 L, MCHC 33.5, RDW Std Deviation 36.9, RDW Coeff of John 12.9, Plt Count 453 H, MPV 9.3, Immature Gran % (Auto) 1.000 H, Neut % (Auto) 69.8, Lymph % (Auto) 20.1, [place] % (Auto) 8.7, Eos % (Auto) 0.1, Baso % (Auto) 0.3, Absolute Neuts (auto) 13.2 H, Absolute Lymphs (auto) 3.81, Nucleated RBC % 0, Differential Comment SCANNED, Diff Path Review November foll 08/12/22 16:22: Sodium 130 L, Potassium 3.9, Chloride 95 L, Carbon Dioxide 23.0, Anion Gap 12, BUN 8, Creatinine 1.11 H, Estim Creat Clear Calc 69.38, Est GFR (MDRD) Af Amer 74, Est GFR (MDRD) Non-Af 61, BUN/Creatinine Ratio 7.2 L, Glucose 230 H, Calcium 9.6, Magnesium 1.6, Total Bilirubin 0.50, AST 20, ALT 13, Alkaline Phosphatase 136 H, Troponin I High Sens 6, Total Protein 9.2 H, Albumin 2.9 L, Globulin 6.3 H, Albumin/Globulin Ratio 0.5 L 08/12/22 16:22: Acetone Level NEGATIVE 08/12/22 16:22: Urine Color Yellow, Urine Clarity Clear, Urine pH 6.0, Ur Specific [place] 1.010, Urine Protein 100 H, Urine Glucose (UA) 50 H, Urine Ketones 15 H, Urine Occult Blood 150 H, Urine Nitrite Negative, Urine Bilirubin Negative, Urine Urobilinogen Normal, Ur Leukocyte Esterase 100 H, Urine RBC 0 SEEN, Urine WBC 10-25 SEEN, Ur Squamous Epith Cells 0-5 SEEN, Urine Bacteria 0 SEEN, Urine Mucus 0 SEEN 08/12/22 16:30: POC Glucose 238 H 08/12/22 17:32: POC Glucose 207 H 08/12/22 18:50: POC Glucose 203 H Radiology Impression Chest X-Ray 08/12/22 17:18 IMPRESSION: Normal x-ray examination of the chest. 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 Multiple subcentimeter retroperitoneal nodes of uncertain etiology but stable since previous study most likely inflammatory Electronically Signed: Andres Ramos MD at 18:42 EST , Assessment & Plan Assessment/Plan (1) Acute pyelonephritis: PLAN: Plan 1. Sepsis secondary to Acute right pyelonephritis, Patient presented with tachycardia, heart rate in the 130s, leukocytosis, WBC count more than 18 Multilobular nephronia of the right kidney seen on CT of the abdomen and pelvis UA however is not too impressive for acute UTI and patient is asymptomatic Started on IV ceftriaxone, urine culture sent from the ED Admits to PCU, continue on IV fluids, IV ceftriaxone Will obtain kidney, bladder ultrasound 2. Hypomagnesemia, magnesium is 1.6, replace, recheck in a.m. 3. Type II DM, last HbA1c in June 2022 was 10.6, insulin-dependent Continue on Lantus, blood glucose checks with insulin sliding scale 4. Dehydration, admitting creatinine is 1.11, previous creatinine 0.71 Continue on IV fluids, recheck blood work in a.m. 5. Hyponatremia, likely related to dehydration, will recheck labs in a.m. 6. DVT PPx -low risk, early ambulation recommended Total time spent: 55 minutes of which a greater time was spent in reviewing patient's chart,laboratory investigations, imaging, taking of history and physical examining patient as well as discussing with emergency room physician. Charges/Coding Visit Charges Inpatient E&M: 05994 Init Hosp L2
[2022-08-12 20:10] VITALS: BP 124/81; PULSE 96; RESP 18; TEMP 37.3; O2SAT 99
[2022-08-12 20:36] LABS: Bedside Glucose 212 mg/dL (74-106)
[2022-08-12 22:03] VITALS: BP 118/74; PULSE 82; RESP 15; TEMP 36.7; O2SAT 99
[2022-08-12 22:05] LABS: Bedside Glucose 238 mg/dL (74-106)
--- NOTE | 2022-08-12 22:29 | US_ITS ---
EXAM: US renal. HISTORY: Right kidney nephronia TECHNIQUE: US Kidney(s) complete (eg, kidneys and bladder) COMPARISON: CT abdomen and pelvis from the same day. LIMITATIONS: None. RIGHT KIDNEY Size: 12.8 cm in length Echogenicity: Normal. Parenchymal thickness: Normal. Hydronephrosis: None. Calculi: None. Cysts/masses: None. LEFT KIDNEY Size: 12.3 cm in length Echogenicity: Normal. Parenchymal thickness: Normal. Hydronephrosis: None. Calculi: None. Cysts/masses: None. BLADDER: Normal. OTHER: None. CONCLUSION: Normal sonographic appearance of the kidneys. Pyelonephritis is identified on the prior CT. This is not well demonstrated under ultrasound which is a less sensitive modality. Electronically Signed: Dedrick Diana MD at 23:58 EST , US/Kidney and Bladder IMPRESSION: undefined
[2022-08-12 22:34] VITALS: BMI 37.9
[2022-08-12] MEDS: Acetaminophen 325 MG Tablet 650 MG PO (22:51)
[2022-08-12] MEDS: Ondansetron 4 MG/2 ML Vial IV (22:52)
[2022-08-12 22:56] VITALS: BP 125/85; PULSE 108; RESP 18; TEMP 36.5; O2SAT 100
[2022-08-12] MEDS: 0.9% Normal Saline 1,000 ML 150 ML IV (23:08)
[2022-08-12] MEDS: Insulin Lispro 100 UNIT/ML INSULN.PEN SC (23:15)
[2022-08-12] MEDS: Insulin Glargine-YFGN 100 UNIT/ML Pen 15 UNIT SC (23:15)
[2022-08-12] MEDS: oxyCODONE 5 MG Tablet PO (23:18)
[2022-08-12 23:55] LABS: Bedside Glucose 205 mg/dL (74-106)
[2022-08-13] VITALS (10 sets, daily range): BP systolic 116–146; BP diastolic 78–90; PULSE 78–120; RESP 16–20; TEMP 36.7–38.3; O2SAT 98–100
[2022-08-13] MEDS: Acetaminophen 325 MG Tablet 650 MG PO ×3 (06:32→21:01)
[2022-08-13] MEDS: oxyCODONE 5 MG Tablet PO ×2 (06:32→21:04)
[2022-08-13] MEDS: Insulin Lispro 100 UNIT/ML INSULN.PEN SC ×4 (06:33→21:01)
[2022-08-13 06:34] LABS: Absolute Lymphocyte Count 2.59 X10^3/uL (0.83-4.51); Absolute Neutrophil Count 10.6 X10^3/uL (2.0-7.7); Basophil# 0.07 X10^3/uL; Basophil% 0.5 % (0-1); Eosinophil# 0.03 X10^3/uL; Eosinophils% 0.2 % (0-5); Hematocrit 31.8 % (37-47); Hemoglobin 10.1 g/dL (12.0-15.0); Lymphocyte # 2.59 X10^3/ul (0.83-4.51); Lymphocyte % 17.3 % (19-41); Mean Corp Hgb Conc 31.8 g/dL (32-36); Mean Corpuscular Hgb 25.7 pg (27.0-32.0); Mean Corpuscular Volume 80.9 fL (81-99); Mean Platelet Vol. 9.1 fl (6.2-12.0); Monocyte# 1.45 X10^3/uL; Monocyte% 9.7 % (0-10); NRBC Flagged by Analyzer 0 % (0-5); Neutrophil # 10.64 X10^3/uL (2.7-7.7); Platelet Count 404 K/mm3 (150-450); RBC Distribution Width CV 12.9 % (11.6-14.6); RBC Distribution Width SD 37.9 fl (35.1-43.9); Red Blood Count 3.93 M/mm3 (4.2-5.4)
[2022-08-13 07:05] LABS: Bedside Glucose 205 mg/dL (74-106)
[2022-08-13 07:05] LABS: Bedside Glucose 237 mg/dL (74-106)
[2022-08-13 07:23] LABS: ALB/GLOB Ratio 0.4 RATIO (0.9-2.4); AST(SGOT) 8 U/L (15-37); Alanine Aminotransfer ALT/SGPT 11 U/L (13-56); Albumin, Serum 2.5 g/dL (3.2-5.0); Alkaline Phosphatase 99 U/L (45-117); Anion Gap 10 (5-15); BUN 7 mg/dL (7-18); BUN/Creat Ratio 8.1 RATIO (10-20); Calcium,Total 8.6 mg/dL (8.5-10.1); Chloride 102 mmol/L (98-107); Creatinine, Serum 0.86 mg/dL (0.55-1.02); EST Glomerular Filtration Rate 82 mL/min (>60); Est Glom Filt Rate - Afr Amer 99 mL/min (>60); Estimated Creatinine Clearance 89.54 ml/min; Globulin 5.6 g/dL (2.2-4.2); Glucose 224 mg/dL (74-106); Magnesium 2.2 mg/dL (1.6-2.6); Potassium 4.1 mmol/L (3.5-5.1); Protein, Total 8.1 g/dL (6.4-8.2); Sodium Level 134 mmol/L (136-145)
--- NOTE | 2022-08-13 08:32 | PN.HOSP_ITS ---
Subjective Subjective Reports slight cough which she thinks is her asthma, abdomen somewhat sore but she is feeling much better than she did on presentation Objective Data Objective Data Vital Signs: Vital Signs Temp Pulse Resp BP Pulse Ox O2 Del Method 98.3 F 106 H 18 141/86 H 100 Room Air 08/13/22 05:26 08/13/22 05:26 08/13/22 05:26 08/13/22 05:26 08/13/22 05:26 08/13/22 05:26 Oxygen Delivery Method Room Air Weight: 106.7 kg Body Mass Index (BMI) 37.9 Intake & Output: Intake and Output for Last 24 Hours 08/11/22 08/12/22 08/13/22 23:59 23:59 23:59 Intake Total 3057.5 / 3057.5 216.5 / 216.5 Output Total Balance 3037.5 / 3037.5 216.5 / 216.5 Lab / Micro Data Result Diagrams: 08/13/22 05:17 08/13/22 05:17 Labs: Laboratory Results - last 24 hr 08/12/22 16:22: WBC 18.9 H, RBC 4.35, Hgb 11.4 L, Hct 34.0 L, MCV 78.2 L, MCH 26.2 L, MCHC 33.5, RDW Std Deviation 36.9, RDW Coeff of John 12.9, Plt Count 453 H, MPV 9.3, Immature Gran % (Auto) 1.000 H, Neut % (Auto) 69.8, Lymph % (Auto) 20.1, [place] % (Auto) 8.7, Eos % (Auto) 0.1, Baso % (Auto) 0.3, Absolute Neuts (auto) 13.2 H, Absolute Lymphs (auto) 3.81, Nucleated RBC % 0, Differential Comment SCANNED, Diff Path Review November08/12/22 16:22: Sodium 130 L, Potassium 3.9, Chloride 95 L, Carbon Dioxide 23.0, Anion Gap 12, BUN 8, Creatinine 1.11 H, Estim Creat Clear Calc 69.38, Est GFR (MDRD) Af Amer 74, Est GFR (MDRD) Non-Af 61, BUN/Creatinine Ratio 7.2 L, Glucose 230 H, Calcium 9.6, Magnesium 1.6, Total Bilirubin 0.50, AST 20, ALT 13, Alkaline Phosphatase 136 H, Troponin I High Sens 6, Total Protein 9.2 H, Albumin 2.9 L, Globulin 6.3 H, Albumin/Globulin Ratio 0.5 L 08/12/22 16:22: Acetone Level NEGATIVE 08/12/22 16:22: Urine Color Yellow, Urine Clarity Clear, Urine pH 6.0, Ur Specific [place] 1.010, Urine Protein 100 H, Urine Glucose (UA) 50 H, Urine Ketones 15 H, Urine Occult Blood 150 H, Urine Nitrite Negative, Urine Bilirubin Negative, Urine Urobilinogen Normal, Ur Leukocyte Esterase 100 H, Urine RBC 0 SEEN, Urine WBC 10-25 SEEN, Ur Squamous Epith Cells 0-5 SEEN, Urine Bacteria 0 SEEN, Urine Mucus 0 SEEN 08/12/22 16:30: POC Glucose 238 H 08/12/22 17:32: POC Glucose 207 H 08/12/22 18:50: POC Glucose 203 H 08/12/22 20:13: POC Glucose 212 H 08/12/22 21:44: POC Glucose 238 H 08/12/22 22:33: POC Glucose 205 H 08/13/22 05:17: WBC 15.0 H, RBC 3.93 L, Hgb 10.1 L, Hct 31.8 L, MCV 80.9 L, MCH 25.7 L, MCHC 31.8 L D, RDW Std Deviation 37.9, RDW Coeff of John 12.9, Plt Count 404, MPV 9.1, Immature Gran % (Auto) 1.300 H, Neut % (Auto) 71.0 H, Lymph % (Auto) 17.3 L, [place] % (Auto) 9.7, Eos % (Auto) 0.2, Baso % (Auto) 0.5, Absolute Neuts (auto) 10.6 H, Absolute Lymphs (auto) 2.59, Nucleated RBC % 0 08/13/22 05:17: Sodium 134 L, Potassium 4.1, Chloride 102, Carbon Dioxide 22.0, Anion Gap 10, BUN 7, Creatinine 0.86, Estim Creat Clear Calc 89.54, Est GFR ( MDRD) Af Amer 99, Est GFR (MDRD) Non-Af 82, BUN/Creatinine Ratio 8.1 L, Glucose 224 H, Calcium 8.6, Magnesium 2.2, Total Bilirubin 0.50, AST 8 L, ALT 11 L, Alkaline Phosphatase 99, Total Protein 8.1, Albumin 2.5 L, Globulin 5.6 H, Albumin/Globulin Ratio 0.4 L 08/13/22 05:31: POC Glucose 205 H 08/13/22 06:29: POC Glucose 237 H Radiography Diagnostic Testing: Radiology Impression Chest X-Ray 08/12/22 17:18 IMPRESSION: Normal x-ray examination of the chest. 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 Multiple subcentimeter retroperitoneal nodes of uncertain etiology but stable since previous study most likely inflammatory Electronically Signed: Andres Ramos MD at 18:42 EST , Renal Ultrasound 08/12/22 22:29 IMPRESSION: undefined Physical Exam Narrative General: Alert, oriented, no apparent distress HEENT: Atraumatic, normocephalic Eyes: Anicteric, normal conjunctiva, extraocular movements grossly intact Neck: Supple Respiratory: Clear to auscultation bilaterally, normal respiratory effort Cardiovascular: Regular rate and rhythm GI: Soft, nontender, nondistended Extremities: No edema Musculoskeletal: Moving all extremities Neuro: No overt focal neurological deficits Skin: Slight rash on right lower extremity with erythematous small spots over do rsum of foot which she reports has been there since she took the dressing off after amputation Psych: Cooperative Assessment & Plan Assessment/Plan (1) Acute pyelonephritis: PLAN: Plan 32-year-old female with history of type 2 diabetes mellitus, hypertension, depression who presents to [facility] 08/12 with hyperglycemia and tachycardia. She was recently admitted on 06/29/2022 for right diabetic foot infection and is status post right toe amputation. Wound on the right foot is healed however blood sugar started elevating and morning of admission was 240. Did have some epigastric discomfort and nausea as well as an episode of emesis in the emergency room. In ED heart rate was 131 with a white count of 18.9, creatinine 1.11 with previous being 0.71. UA had positive ketones and glucose, leuk esterase 100, white count 10-25, nitrite negative and bacteria 0. Acetone negative. Chest x-ray unremarkable, CT of the abdomen and pelvis showed scarring of the right kidney, focal areas of diminished attenuation in the cortex associated with stranding in the fat possible representing inflammatory process in the kidney. #Acute right pyelonephritis Sepsis ruled out, had elevated white blood cell count and tachycardia which would meet SIRS criteria however did not have organ dysfunction noted but otherwise does not meet criteria Tachycardic, elevated blood blood cell count CT abdomen pelvis suggestive of right kidney Dieudonne UA not overly impressive for infection however Urine culture was sent from ED Started on IV Rocephin and fluids Kidney ultrasound 08/13: White blood cell count downtrending. Renal ultrasound reported normal appearance of the kidneys but did note that Dieudonne had been identified on prior CT and that it is not well demonstrated on her ultrasound as it is less sensitive. Urine is growing gram-negative rods and she has become tachycardic again and fe brile. We will get blood cultures, check ESR and CRP, and broaden to Zosyn. CT did not show perinephric abscess but if slow to respond can consider rescan to evaluate for development of perinephric abscess #Type 2 diabetes mellitus Insulin-dependent, continue Lantus as well as blood glucose checks and sliding scale insulin A1c June 2022 was 10.6 #Dehydration Admitting creatinine 1.11 from previous creatinine of 0.71 IV fluids 2/2: Creatinine improved to 0.86 with fluids #DVT ppx: Low risk early ambulation recommended Lexus Villatoro MD Time spent in the patient's overall evaluation,decision-making process, review of diagnostic data, adjustment of management, discussion with other providers, nursing nursing and ancillary staff involved in patient's care documentation, 40 Minutes Charges/Coding Visit Charges Inpatient E&M: 75778 Subs Hosp L2
--- NOTE | 2022-08-13 10:10 | CASEMGMT ---
RYNE LUJAN Face to Face with patient for initial transition planning/care coordination assessment. RN CM introduced self and role at [facility]. Patient lying in bed, alert and oriented. Patient willing to participate in assessment and is able to answer all questions appropriately. Care providers, pharmacy, and demographics verified. Patient wishes to discharge home, denies need for home health at this time. Patient states she has no further needs or concerns at this time. CM to follow for discharge planning needs that may arise. PCP: Arti Specialists: kojo Matias[facility]; [facility] Preferred Pharmacy: [facility] Insurance: [employer] Prescription Benefit: yes Living Will/HPOA: none LNOK: grandmother Living Arrangements: Patient lives alone in a 2nd floor apartment with 15 steps and railing to enter the home. Patient states she is independent at home and ambulate stairs. Transportation: grandmother, public DME/HHC: Patient has walker and glucometer at home. Patient states she has previously gone to [facility]. No previous [facility] Disposition Plan: Patient to discharge home with family support and follow-up plans in place. Saima ANTONIO, RN, CM
[2022-08-13] MEDS: Insulin Glargine-YFGN 100 UNIT/ML Pen 15 UNIT SC ×2 (10:24→21:00)
[2022-08-13 10:45] LABS: Bedside Glucose 239 mg/dL (74-106)
[2022-08-13] MEDS: Albuterol 2.5 MG/3 ML VIAL.NEB. INHALATION ×2 (13:09→20:34)
[2022-08-13] MEDS: 0.9% Normal Saline 1,000 ML 75 ML IV (13:58)
--- NOTE | 2022-08-13 14:22 | NURSING ---
co flower t 100.9 medicated as per order with tylenol
[2022-08-13 16:21] LABS: Bedside Glucose 277 mg/dL (74-106)
[2022-08-13 17:00] LABS: Erythrocyte Sedimentation Rate 43 mm/hr (0-30)
[2022-08-13] MEDS: Ondansetron 4 MG/2 ML Vial IV (19:39)
[2022-08-13] MEDS: BENZOCAINE/MENTHOL 1 LOZENGE MUCOUS MEM (21:02)
[2022-08-13] MEDS: Senna/Docusate Sodium 1 Tablet 2 TABLET PO (21:05)
[2022-08-14 01:31] LABS: Bedside Glucose 286 mg/dL (74-106)
[2022-08-14 03:15] VITALS: BP 99/69; PULSE 85; RESP 18; TEMP 36.6; O2SAT 100
[2022-08-14] MEDS: Ondansetron 4 MG/2 ML Vial IV ×2 (05:47→13:31)
[2022-08-14 05:57] LABS: Absolute Lymphocyte Count 2.84 X10^3/uL (0.83-4.51); Absolute Neutrophil Count 8.4 X10^3/uL (2.0-7.7); Basophil# 0.07 X10^3/uL; Basophil% 0.6 % (0-1); Eosinophil# 0.07 X10^3/uL; Eosinophils% 0.6 % (0-5); Hematocrit 28.9 % (37-47); Hemoglobin 9.1 g/dL (12.0-15.0); Lymphocyte # 2.84 X10^3/ul (0.83-4.51); Lymphocyte % 22.3 % (19-41); Mean Corp Hgb Conc 31.5 g/dL (32-36); Mean Corpuscular Hgb 25.9 pg (27.0-32.0); Mean Corpuscular Volume 82.1 fL (81-99); Monocyte# 1.09 X10^3/uL; Monocyte% 8.6 % (0-10); NRBC Flagged by Analyzer 0.2 % (0-5); Neutrophil # 8.37 X10^3/uL (2.7-7.7); Neutrophil % 65.7 % (47-70); Platelet Count 395 K/mm3 (150-450); RBC Distribution Width CV 12.9 % (11.6-14.6); RBC Distribution Width SD 38.6 fl (35.1-43.9); Red Blood Count 3.52 M/mm3 (4.2-5.4); White Blood Count 12.7 K/mm3 (4.4-11.0)
[2022-08-14 06:27] LABS: Anion Gap 8 (5-15); BUN 5 mg/dL (7-18); BUN/Creat Ratio 6.6 RATIO (10-20); Calcium,Total 8.4 mg/dL (8.5-10.1); Chloride 104 mmol/L (98-107); Creatinine, Serum 0.76 mg/dL (0.55-1.02); EST Glomerular Filtration Rate 95 mL/min (>60); Est Glom Filt Rate - Afr Amer 115 mL/min (>60); Estimated Creatinine Clearance 101.33 ml/min; Glucose 218 mg/dL (74-106); Potassium 3.9 mmol/L (3.5-5.1); Sodium Level 136 mmol/L (136-145)
[2022-08-14] MEDS: Insulin Lispro 100 UNIT/ML INSULN.PEN SC ×4 (06:31→21:20)
[2022-08-14 06:50] LABS: Bedside Glucose 250 mg/dL (74-106)
[2022-08-14 07:40] VITALS: PULSE 87; RESP 21; O2SAT 98
[2022-08-14] MEDS: Albuterol 2.5 MG/3 ML VIAL.NEB. INHALATION (07:40)
[2022-08-14] MEDS: oxyCODONE 5 MG Tablet PO ×2 (08:21→21:25)
[2022-08-14] MEDS: Acetaminophen 325 MG Tablet 650 MG PO ×2 (08:21→15:55)
--- NOTE | 2022-08-14 08:46 | PN.HOSP_ITS ---
Subjective Subjective Irritable this morning, reports her abdomen hurts all over, has not had a bowel movement since Wednesday, denies nausea. Reports she wants to leave today and then if she is not discharged tomorrow she will sign out AMA. Objective Data Objective Data Vital Signs: Vital Signs Temp Pulse Resp BP Pulse Ox O2 Del Method 97.8 F 87 21 H 99/69 98 Room Air 08/14/22 03:15 08/14/22 07:40 08/14/22 07:40 08/14/22 03:15 08/14/22 07:40 08/14/22 07:40 Oxygen Delivery Method Room Air Weight: 105.5 kg Body Mass Index (BMI) 37.9 Intake & Output: Intake and Output for Last 24 Hours 08/12/22 08/13/22 08/14/22 23:59 23:59 23:59 Intake Total 3057.5 / 3057.5 2124.0 / 2524.0 1375 / 1375 Output Total 20 / 20 Balance 3037.5 / 3037.5 2124.0 / 2524.0 1375 / 1375 Lab / Micro Data Result Diagrams: 08/14/22 05:01 08/14/22 05:01 Labs: Laboratory Results - last 24 hr 08/13/22 05:17: ESR 43 H 08/13/22 05:17: C-React Prot Ext Range 188.00 H 08/13/22 10:22: POC Glucose 239 H 08/13/22 15:51: POC Glucose 277 H 08/13/22 20:59: POC Glucose 286 H 08/14/22 05:01: WBC 12.7 H, RBC 3.52 L, Hgb 9.1 L, Hct 28.9 L, MCV 82.1, MCH 25.9 L, MCHC 31.5 L, RDW Std Deviation 38.6, RDW Coeff of John 12.9, Plt Count 395, MPV 9.0, Immature Gran % (Auto) 2.200 H, Neut % (Auto) 65.7, Lymph % (Auto) 22.3, [place] % (Auto) 8.6, Eos % (Auto) 0.6, Baso % (Auto) 0.6, Absolute Neuts (auto) 8.4 H, Absolute Lymphs (auto) 2.84, Nucleated RBC % 0.2 08/14/22 05:01: Sodium 136, Potassium 3.9, Chloride 104, Carbon Dioxide 24.0, Anion Gap 8, BUN 5 L, Creatinine 0.76, Estim Creat Clear Calc 101.33, Est GFR (MDRD) Af Amer 115, Est GFR (MDRD) Non-Af 95, BUN/Creatinine Ratio 6.6 L, Glucose 218 H, Calcium 8.4 L 08/14/22 06:30: POC Glucose 250 H Micro: Microbiology 08/12/22 16:22 Urine, Clean Catch Urine Culture - Final Escherichia coli Physical Exam Narrative General: Alert, oriented, standing up, irritable HEENT: Atraumatic, normocephalic Eyes: Anicteric, normal conjunctiva, extraocular movements grossly intact Neck: Supple Respiratory: Clear to auscultation bilaterally, normal respiratory effort Cardiovascular: Regular rate and rhythm GI: Soft, very minimal tenderness diffusely, no rebound, no guarding, no rigidity, nondistended Extremities: No edema Musculoskeletal: Moving all extremities Neuro: No overt focal neurological deficits Skin: Faint rash on foot appears to be improving Psych: Irritable Assessment & Plan Assessment/Plan (1) Acute pyelonephritis: PLAN: Plan 32-year-old female with history of type 2 diabetes mellitus, hypertension, depression who presents to [facility] 08/12 with hyperglycemia and tachycardia. She was recently admitted on 06/29/2022 for right diabetic foot infection and is status post right toe amputation. Wound on the right foot is healed however blood sugar started elevating and morning of admission was 240. Did have some epigastric discomfort and nausea as well as an episode of emesis in the emergency room. In ED heart rate was 131 with a white count of 18.9, creatinine 1.11 with previous being 0.71. UA had positive ketones and glucose, leuk esterase 100, white count 10-25, nitrite negative and bacteria 0. Acetone negative. Chest x-ray unremarkable, CT of the abdomen and pelvis showed scarring of the right kidney, focal areas of diminished attenuation in the cortex associated with stranding in the fat possible representing inflammatory process in the kidney. #Acute right pyelonephritis Sepsis ruled out, had elevated white blood cell count and tachycardia which would meet SIRS criteria however did not have organ dysfunction noted but otherwise does not meet criteria Tachycardic, elevated blood blood cell count CT abdomen pelvis suggestive of right kidney Dieudonne UA not overly impressive for infection however Urine culture was sent from ED Started on IV Rocephin and fluids Kidney ultrasound 2/2: White blood cell count downtrending. Renal ultrasound reported normal appearance of the kidneys but did note that Dieudonne had been identified on prior CT and that it is not well demonstrated on her ultrasound as it is less sensitive. Urine is growing gram-negative rods and she has become tachycardic again and febrile. We will get blood cultures, check ESR and CRP, and broaden to Zosyn. CT did not show perinephric abscess but if slow to respond can consider rescan to evaluate for development of perinephric abscess 2/3: White blood cell count is improving urine culture growing E. coli with resistance to Bactrim and ampicillin with intermediate sensitivity to Unasyn, is sensitive to Zosyn. We will continue that at this time pending blood cultures. Fever and tachycardia improving #Type 2 diabetes mellitus Insulin-dependent, continue Lantus as well as blood glucose checks and sliding scale insulin A1c June 2022 was 10.6 #Dehydration Admitting creatinine 1.11 from previous creatinine of 0.71 IV fluids 2/2: Creatinine improved to 0.86 with fluids #DVT ppx: Low risk early ambulation recommended Lexus Villatoro MD Time spent in the patient's overall evaluation,decision-making process, review of diagnostic data, adjustment of management, discussion with other providers, nursing nursing and ancillary staff involved in patient's care documentation, 30 Minutes Charges/Coding Visit Charges Inpatient E&M: 93994 [facility] Hosp L2
[2022-08-14 09:15] VITALS: BP 141/103; PULSE 97; RESP 20; TEMP 36.3; O2SAT 100
[2022-08-14 09:49] LABS: Pathologist Review Reviewed
[2022-08-14] MEDS: Polyethylene Glycol 3350 17 GM PACKET 34 GM PO (11:30)
[2022-08-14] MEDS: Insulin Glargine-YFGN 100 UNIT/ML Pen 15 UNIT SC ×2 (11:30→21:19)
[2022-08-14 11:51] LABS: Bedside Glucose 343 mg/dL (74-106)
[2022-08-14] MEDS: 0.9% Saline Lock 10 ML Syringe IV ×2 (13:32→21:20)
[2022-08-14 13:46] LABS: Bedside Glucose 202 mg/dL (74-106)
[2022-08-14 15:10] VITALS: BP 146/103; PULSE 116; RESP 20; TEMP 37.3; O2SAT 98
[2022-08-14 15:27] VITALS: BP 125/87; PULSE 105; RESP 20; TEMP 37.6; O2SAT 97
[2022-08-14 16:30] LABS: Bedside Glucose 238 mg/dL (74-106)
[2022-08-14 21:13] VITALS: BP 121/79; BP 125/87; PULSE 105; PULSE 97; RESP 18; RESP 20; TEMP 37.2; O2SAT 97; O2SAT 98
[2022-08-15 00:36] LABS: Bedside Glucose 295 mg/dL (74-106)
[2022-08-15 03:15] VITALS: BP 116/73; PULSE 88; RESP 16; TEMP 36.9; O2SAT 97
[2022-08-15] MEDS: 0.9% Saline Lock 10 ML Syringe IV (06:08)
[2022-08-15] MEDS: Ondansetron 4 MG/2 ML Vial IV (06:08)
[2022-08-15] MEDS: oxyCODONE 5 MG Tablet PO (06:11)
[2022-08-15] MEDS: Insulin Lispro 100 UNIT/ML INSULN.PEN SC ×2 (06:13→11:08)
[2022-08-15 06:35] LABS: Bedside Glucose 208 mg/dL (74-106)
[2022-08-15 06:50] LABS: Anion Gap 9 (5-15); BUN 5 mg/dL (7-18); BUN/Creat Ratio 7.1 RATIO (10-20); Calcium,Total 8.4 mg/dL (8.5-10.1); Chloride 104 mmol/L (98-107); EST Glomerular Filtration Rate 104 mL/min (>60); Est Glom Filt Rate - Afr Amer 125 mL/min (>60); Estimated Creatinine Clearance 110.01 ml/min; Glucose 215 mg/dL (74-106); Sodium Level 137 mmol/L (136-145)
[2022-08-15 09:31] VITALS: BP 141/96; PULSE 95; RESP 16; TEMP 36.8; O2SAT 99
[2022-08-15] MEDS: Insulin Glargine-YFGN 100 UNIT/ML Pen 15 UNIT SC (09:32)
[2022-08-15] MEDS: Polyethylene Glycol 3350 17 GM PACKET 34 GM PO (09:33)
--- NOTE | 2022-08-15 11:32 | DCINST_ITS ---
Discharge Instructions Diet Discharge Diet: - (Consistent carbohydrate diet) Activity Discharge Activity: Return to Normal Activity Follow Up Care Test Results: Test results from this visit will be discussed in further detail at your follow- up appointment, if applicable. Discharge Plan Admission Admit Date/Time: 08/12/22 20:05 Primary Reason for Your Visit: High heart rate and high blood glucose Attending Provider: Lexus Villatoro Primary Care Provider: Sophy Chi Consulting Providers: Valencia Urbina Instructions Patient Instructions: ED Pyelonephritis, Female (Adult) Additional Instructions / Restrictions: DISCHARGE INSTRUCTIONS PLEASE READ *Please take this with you to your next doctors appointment* ?You have an infection in your kidney and will need to continue a course of antibiotics. You will take ciprofloxacin 500 mg twice daily for 5 more days. This will be sent to your preferred pharmacy, [facility] ?Please continue all other home medications -Please call your primary care provider's office upon discharge to schedule a hospital follow up within 1 week. -For any concerning signs or symptoms please call 911 or proceed to the nearest emergency department Discharge Orders/Prescriptions Prescriptions: New ciprofloxacin HCl 500 mg tablet 500 mg PO Q12H 5 Days Qty: 10 0RF Continued albuterol sulfate [Ventolin HFA] 90 mcg/actuation HFA aerosol inhaler 1 inh INHALATION Q4H docusate sodium [Dulcolax Stool Softener (dss)] 100 mg capsule 100 mg PO BID PRN (Reason: stool) metformin 500 mg tablet 1,000 mg PO BID insulin glargine [Lantus Solostar U-100 Insulin] 100 unit/mL (3 mL) insulin pen 15 unit SUBCUT BID Label Comments: inject 10 units subcutaneous twice daily Referrals / Follow Up: Sophy Chi [Primary Care Provider] - Within 1 Week Disposition Disposition (needs filled in before D/C Order can be placed): Home, Self Care
[2022-08-15 11:35] LABS: Bedside Glucose 290 mg/dL (74-106)
--- NOTE | 2022-08-15 11:44 | DS.PCM_ITS ---
Providers Date of Admission: 08/12/22 Date of Discharge: 08/15/22 Primary Care Physician: Dr. Sophy Chi Reason For Visit: ACUTE PYELONEPHRITIS Diagnosis Discharge Diagnosis (1) Acute pyelonephritis: Status: Acute Code(s): N10 - Acute pyelonephritis Plan #Acute right pyelonephritis 2/2 ecoli #Type 2 diabetes mellitus #Dehydration Medications at Discharge Home Medications albuterol sulfate 90 mcg/actuation aerosol inhaler (Ventolin HFA) 1 inh inhalation Q4H SOB 04/06/22 docusate sodium 100 mg capsule (Dulcolax Stool Softener (docusate)) 100 mg PO BID PRN stool 04/06/22 metformin 500 mg tablet 1,000 mg PO BID DM 06/24/22 insulin glargine 100 unit/mL (3 mL) subcutaneous pen (Lantus Solostar U-100 Insulin) 15 unit subcut BID diabetes 08/12/22 ciprofloxacin HCl 500 mg tablet 500 mg PO Q12H 5 days #10 tabs 08/15/22 Hospital Course Summary of Care Provided Minutes Spent on Discharge: 31 Hospital Course: 32-year-old female with history of type 2 diabetes mellitus, hypertension, depression who presents to [facility] 08/12 with hyperglycemia and tachycardia. She was recently admitted on 06/29/2022 for right diabetic foot infection and is status post right toe amputation. Wound on the right foot is healed however blood sugar started elevating and morning of admission was 240. Did have some epigastric discomfort and nausea as well as an episode of emesis in the emergency room. In ED heart rate was 131 with a white count of 18.9, creatinine 1.11 with previous being 0.71. UA had positive ketones and glucose, leuk esterase 100, white count 10-25, nitrite negative and bacteria 0. Acetone negative. Chest x-ray unremarkable, CT of the abdomen and pelvis showed scarring of the right kidney, focal areas of diminished attenuation in the cortex associated with stranding in the fat possible representing inflammatory process in the kidney. Hospitalist consulted for admission. Patient diagnosed with acute pyelonephritis this and was on Zosyn IV fluids and improved. Urine grew gram-negative rods that resulted as E. coli. Blood cultures were no growth to date. She had a slightly elevated creatinine from baseline of 1.11 on admission but it down trended with fluids. On day of discharge she had no complaints aside from some constipation which she reported was chronic and that she had laxatives at home that helped. Discharge instructions as followed: ?You have an infection in your kidney and will need to continue a course of antibiotics.? You will take ciprofloxacin 500 mg twice daily for 5 more days.? This will be sent to your preferred pharmacy, [facility] ?Please continue all other home medications -Please call your primary care provider's office upon discharge to schedule a hospital follow up within 1 week. -For any concerning signs or symptoms please call 911 or proceed to the nearest emergency department Physical Exam Narrative General: Alert, oriented, no apparent distress HEENT: Atraumatic, normocephalic Eyes: Anicteric, normal conjunctiva, extraocular movements grossly intact Neck: Supple Respiratory: Clear to auscultation bilaterally, normal respiratory effort Cardiovascular: Regular rate and rhythm GI: Soft, nontender, nondistended Extremities: No edema Musculoskeletal: Moving all extremities Neuro: No overt focal neurological deficits Skin: Foot rash improving Psych: Cooperative Weight / BMI Weight Weight: 107.3 kg Body Mass Index (BMI) 37.9 ABG / Lab / Microbiology Data Result Diagrams: 08/15/22 06:03 08/15/22 06:03 Laboratory: Laboratory Results - last 24 hr 08/14/22 11:28: POC Glucose 343 H 08/14/22 13:26: POC Glucose 202 H 08/14/22 15:58: POC Glucose 238 H 08/14/22 21:18: POC Glucose 295 H 08/15/22 06:03: WBC 9.2, RBC 3.60 L, Hgb 9.2 L, Hct 29.3 L, MCV 81.4, MCH 25.6 L , MCHC 31.4 L, RDW Std Deviation 38.4, RDW Coeff of John 12.9, Plt Count 458 H, MPV 9.0, Immature Gran % (Auto) 1.100 H, Neut % (Auto) 62.3, Lymph % (Auto) 27.1, [place] % (Auto) 8.2, Eos % (Auto) 0.9, Baso % (Auto) 0.4, Absolute Neuts (auto) 5.7, Absolute Lymphs (auto) 2.49, Nucleated RBC % 0 08/15/22 06:03: Sodium 137, Potassium 4.0, Chloride 104, Carbon Dioxide 24.0, Anion Gap 9, BUN 5 L, Creatinine 0.70, Estim Creat Clear Calc 110.01, Est GFR (MDRD) Af Amer 125, Est GFR (MDRD) Non-Af 104, BUN/Creatinine Ratio 7.1 L, Glucose 215 H, Calcium 8.4 L, C-React Prot Ext Range 119.00 H 08/15/22 06:13: POC Glucose 208 H 08/15/22 11:07: POC Glucose 290 H Microbiology: Microbiology 08/12/22 16:22 Urine, Clean Catch Urine Culture - Final Escherichia coli D/C Instructions Discharge Diet: - (Consistent carbohydrate diet) Meaningful Use Info Meaningful Use Diagnoses (Choose all that apply): None applicable Discharge Plan Admission Admit Date/Time: 08/12/22 20:05 Primary Reason for Your Visit: High heart rate and high blood glucose Attending Provider: Lexus Villatoro Primary Care Provider: Sophy Chi Consulting Providers: Valencia Urbina Instructions Patient Instructions: ED Pyelonephritis, Female (Adult) Additional Instructions / Restrictions: DISCHARGE INSTRUCTIONS PLEASE READ *Please take this with you to your next doctors appointment* ?You have an infection in your kidney and will need to continue a course of antibiotics. You will take ciprofloxacin 500 mg twice daily for 5 more days. This will be sent to your preferred pharmacy, [facility] ?Please continue all other home medications -Please call your primary care provider's office upon discharge to schedule a hospital follow up within 1 week. -For any concerning signs or symptoms please call 911 or proceed to the nearest emergency department Discharge Orders/Prescriptions Prescriptions: New ciprofloxacin HCl 500 mg tablet 500 mg PO Q12H 5 Days Qty: 10 0RF Continued albuterol sulfate [Ventolin HFA] 90 mcg/actuation HFA aerosol inhaler 1 inh INHALATION Q4H docusate sodium [Dulcolax Stool Softener (dss)] 100 mg capsule 100 mg PO BID PRN (Reason: stool) metformin 500 mg tablet 1,000 mg PO BID insulin glargine [Lantus Solostar U-100 Insulin] 100 unit/mL (3 mL) insulin pen 15 unit SUBCUT BID Label Comments: inject 10 units subcutaneous twice daily Referrals / Follow Up: Sophy Chi [Primary Care Provider] - Within 1 Week Disposition Disposition (needs filled in before D/C Order can be placed): Home, Self Care Charges/Coding Visit Charges Inpatient E&M: 23023 Disch Hosp >30min
[2022-08-15 13:46] VITALS: BP 130/95; PULSE 87; RESP 16; TEMP 37; O2SAT 99
== END 2022-08-15 14:14 | disposition home or self-care (01) | DRG 463 ==
LOC: ED 16:07 → PCU 20:19
PROVIDERS: Admitting Provider Internal Medicine; Emergency Provider Student in an Organized Health Care Education/Training Program; Visit Provider Internal Medicine
DX: N10 Acute pyelonephritis (principal); E87.1 Hypo-osmolality and hyponatremia; E11.42 Type 2 diabetes mellitus with diabetic polyneuropathy; E11.65 Type 2 diabetes mellitus with hyperglycemia; E86.0 Dehydration; B96.20 Unspecified Escherichia coli [E. coli] as the cause of diseases classified elsewhere; Z79.4 Long term (current) use of insulin; Z89.421 Acquired absence of other right toe(s); I10 Essential (primary) hypertension; R11.0 Nausea; F17.210 Nicotine dependence, cigarettes, uncomplicated; R00.0 Tachycardia, unspecified; Z79.899 Other long term (current) drug therapy
CPT/HCPCS: 36415; 71045; 74177; 76770; 80048; 80053; 81001; 82009; 82962; 83735; 84484; 85025; 85652; 86140; 87040; 87077; 87086; 87088; 87186; 93005; 94640; 97802; 99285; 99406; J7030; Q9967; A4216; J2405

== ENCOUNTER 2022-11-19 09:23 | Emergency (ER) | payer MEDICAID, SELFPAY ==
[2022-11-19 09:24] VITALS: BP 131/81; PULSE 101; RESP 14; TEMP 37.1; O2SAT 99; BMI 39.3
[2022-11-19 09:26] VITALS: BP 131/81; PULSE 101; RESP 14; TEMP 37.1; O2SAT 99
--- NOTE | 2022-11-19 10:08 | EX.ED.DYSGE1 ---
HPI History of Present Illness Chief Complaint: Cellulitis [facility] Medical History (Updated 11/19/22 @ 10:[address] Tim Vidal DO) Anxiety Asthma Constipation Depression Diabetes Diabetes mellitus with diabetic polyneuropathy Hypertension Type 2 diabetes mellitus with foot ulcer Home Medications albuterol sulfate 90 mcg/actuation aerosol inhaler (Ventolin HFA) 1 inh inhalation Q4H SOB 04/06/22 [History Last Taken 06/24/22] metformin 500 mg tablet 1,000 mg PO BID DM 06/24/22 [History Last Taken 06/24/22] insulin glargine 100 unit/mL (3 mL) subcutaneous pen (Lantus Solostar U-100 Insulin) 15 unit subcut BID diabetes 08/12/22 [History Last Taken Unknown] cephalexin 500 mg capsule 500 mg PO TID 7 days #21 caps 11/19/22 [Rx Last Taken Unknown] sulfamethoxazole 800 mg-trimethoprim 160 mg tablet 1 tab PO BID 11/19/22 [History Last Taken Unknown] sulfamethoxazole 800 mg-trimethoprim 160 mg tablet (Bactrim DS) 1 tab PO BID 2 days #4 tabs 11/19/22 [Rx Last Taken Unknown] Allergy/AdvReac Type Severity Reaction Status Date / Time No Known Allergies Allergy Verified 11/19/22 09:24 Family History Other Bleeding disorder Cancer Diabetes Hypertension Surgical History Hx of foot surgery Social History Smoking Status: Current some day smoker tobacco type: cigarettes alcohol intake: never substance use type: does not use what type of physical activity do you participate in: none EXAM Physical Exam Const Vital Signs: 11/19/22 09:24 11/19/22 09:26 Temperature 98.7 F 98.7 F Temperature Source Temporal Temporal Pulse Rate 101 H 101 H Respiratory Rate 14 14 Blood Pressure 131/81 H 131/81 H Blood Pressure Mean 97 97 Pulse Ox 99 99 Oxygen Delivery Method Room Air Room Air MDM MDM MDM Narrative Medical decision making narrative: HISTORY OF PRESENT ILLNESS: 32-year-old female here with concern for facial infection. States she was evaluated by urgent care 2 days ago. She started antibiotics at that time. She is continue antibiotics for last 2 days and states she saw urgent care again today. They instructed patient to come to the emergency department for evaluation. The patient states she had several days of redness to her face. She notes this is gotten worse since starting antibiotics. She notes 3 doses of Bactrim. She denies any nausea fever double vision slurred speech or other cranial nerve deficit REVIEW OF SYSTEMS: Pertinent positives: Facial rash Pertinent negatives: Numbness, tingling, double vision PHYSICAL EXAM: Nursing triage notes reviewed, Vital signs reviewed Constitutional: please see mdm HENT: MMM, erythema noted with mild swelling to the forehead. No fluctuance, induration, crepitus or bullae. Small punctate lesion draining yellow fluid noted at the center of redness. Erythema is not raised. Eyes: Pupils equal round and reactive to light, Extraocular muscles intact, visual joy intact Neck: No stridor, no JVD, full neck ROM Skin: Cellulitic changes noted to facial skin MEDICAL DECISION MAKING: Chief Complaint: Facial infection External records reviewed: Last ED visit in August 2022 for pyelonephritis Seen for cellulitis and June and March 2022 [facility] Narrative: Exam consistent with facial cellulitis, no evidence of erysipelas. No cranial nerve deficits to suggest cavernous sinus thrombosis. Patient is only on day 2 of antibiotics. Encouraged to continue antibiotics for broader coverage with Keflex. Bactrim and Keflex should cover strep and staph species. There is no sign of facial abscess that would require incision and drainage. In fact the patient's site of redness was already draining. Strict return precautions were discussed. Factors affecting care: Type 2 diabetes on metformin and insulin Social determinants of health: Poor health literacy History obtained from others: None Shared decision making: I will have a discussion with the patient and or visitors regarding risk/benefits of further testing or admission. They will be made aware of of the risk/benefits inherent in this decision they will be given the opportunity to voice understanding. Consults: None Discharge Plan Triage Chief Complaint: Cellulitis ED Provider: Tim Vidal Dx/Rx/DC Orders Clinical Impression: Cellulitis of face, History of diabetes mellitus, type II Instructions: Cellulitis Dc Prescriptions: New sulfamethoxazole-trimethoprim [Bactrim DS] 800-160 mg tablet 1 tab PO BID 2 Days Qty: 4 0RF cephalexin 500 mg capsule 500 mg PO TID 7 Days Qty: 21 0RF No Action albuterol sulfate [Ventolin HFA] 90 mcg/actuation HFA aerosol inhaler 1 inh INHALATION Q4H metformin 500 mg tablet 1,000 mg PO BID insulin glargine [Lantus Solostar U-100 Insulin] 100 unit/mL (3 mL) insulin pen 15 unit SUBCUT BID Label Comments: inject 10 units subcutaneous twice daily sulfamethoxazole-trimethoprim 800-160 mg tablet 1 tab PO BID Stand Alone Forms: ED Work / School Excuse Primary Care Provider: Sophy Chi Referrals: Sophy Chi [Primary Care Provider] - Activity Restrictions/Additional Instructions: Thank you for trusting us with your care today! Please take Tylenol (2 pills, 650 mg), ibuprofen (2 pills, 400 mg) every 6 hours as needed for pain and fever control. Please take antibiotics until course is complete. Please return to the emergency department if your symptoms change or worsen. Specifically if develop nausea and vomiting and unable to tolerate your antibiotics. If you develop double vision, slurred speech, facial drooping, any neurologic complaints please return immediately. Please follow with your primary care physician for further outpatient evaluation and management. Disposition Disposition: Home, Self Care
[2022-11-19] MEDS: Cephalexin 250 MG Capsule 500 MG PO (11:32)
== END 2022-11-19 11:37 | disposition home or self-care (01) ==
PROVIDERS: Emergency Provider Emergency Medicine; Visit Provider Emergency Medicine
DX: L03.211 Cellulitis of face (principal); E11.40 Type 2 diabetes mellitus with diabetic neuropathy, unspecified; Z79.4 Long term (current) use of insulin; Z79.84 Long term (current) use of oral hypoglycemic drugs; I10 Essential (primary) hypertension; F17.210 Nicotine dependence, cigarettes, uncomplicated
CPT/HCPCS: 99283

== ENCOUNTER → 2022-11-25 | Outpatient (CLI) | payer MEDICAID, SELFPAY ==
[2022-11-25 10:27] LABS: Hemoglobin 12.5 g/dL (12.0-15.0); Mean Corp Hgb Conc 32.9 g/dL (32-36); Mean Corpuscular Hgb 26.4 pg (27.0-32.0); Mean Corpuscular Volume 80.2 fL (81-99); Mean Platelet Vol. 9.5 fl (6.2-12.0); Platelet Count 375 K/mm3 (150-450); RBC Distribution Width CV 13.9 % (11.6-14.6); RBC Distribution Width SD 40.1 fl (35.1-43.9); Red Blood Count 4.74 M/mm3 (4.2-5.4); White Blood Count 8.2 K/mm3 (4.4-11.0)
[2022-11-25 11:37] LABS: Microalbumin,Random Urine 6.1 mg/L (NO RANGE EST.)
[2022-11-25 11:39] LABS: ALB/GLOB Ratio 0.6 RATIO (0.9-2.4); AST(SGOT) 15 U/L (15-37); Alanine Aminotransfer ALT/SGPT 26 U/L (13-56); Alkaline Phosphatase 110 U/L (45-117); Anion Gap 12 (5-15); BUN 13 mg/dL (7-18); BUN/Creat Ratio 11.3 RATIO (10-20); Calcium,Total 8.2 mg/dL (8.5-10.1); Chloride 99 mmol/L (98-107); Creatinine, Serum 1.15 mg/dL (0.55-1.02); EST Glomerular Filtration Rate 59 mL/min (>60); Est Glom Filt Rate - Afr Amer 71 mL/min (>60); Glucose 493 mg/dL (74-106); Potassium 4.3 mmol/L (3.5-5.1); Sodium Level 130 mmol/L (136-145)
[2022-11-25 11:59] LABS: Hemoglobin A1c 12.1 % (3.8-5.6)
== END | disposition home or self-care (01) ==
LOC: LAB 09:13
PROVIDERS: Referring Provider Nurse Practitioner Family; Visit Provider Nurse Practitioner Family
DX: E11.8 Type 2 diabetes mellitus with unspecified complications (principal)
CPT/HCPCS: 36415; 80053; 82043; 83036; 85027

== ENCOUNTER 2023-01-07 08:37 | Emergency (ER) | payer MEDICAID, SELFPAY ==
[2023-01-07 08:38] VITALS: BP 161/105; PULSE 82; RESP 16; TEMP 37.1; O2SAT 99; BMI 34.5
--- NOTE | 2023-01-07 08:54 | ED.VIS.GI ---
HPI HPI - GI History of Present Illness Chief Complaint: Abd Pain Informant: patient and spouse/S.O. Narrative Narrative: Nausea vomiting since yesterday afternoon after smoking marijuana. Dry heaving. No diarrhea. No hematemesis. Reports does not typically use marijuana. Last menstrual period a week ago. No urinary symptoms. No abdominal surgeries. Denies any allergies. History of diabetes states sugars usually 250. She is on insulin. Prior similar symptoms: No PFSH PFSH Medical History Anxiety Asthma Constipation Depression Diabetes Diabetes mellitus with diabetic polyneuropathy Hypertension Type 2 diabetes mellitus with foot ulcer Home Medications albuterol sulfate 90 mcg/actuation aerosol inhaler (Ventolin HFA) 1 inh inhalation Q4H SOB 04/06/22 [History Last Taken 06/24/22] metformin 500 mg tablet 1,000 mg PO BID DM 06/24/22 [History Last Taken 06/24/22] insulin glargine 100 unit/mL (3 mL) subcutaneous pen (Lantus Solostar U-100 Insulin) 15 unit subcut BID diabetes 08/12/22 [History Last Taken Unknown] cephalexin 500 mg capsule 500 mg PO TID 7 days #21 caps 11/19/22 [Rx Last Taken Unknown] sulfamethoxazole 800 mg-trimethoprim 160 mg tablet 1 tab PO BID 11/19/22 [History Last Taken Unknown] sulfamethoxazole 800 mg-trimethoprim 160 mg tablet (Bactrim DS) 1 tab PO BID 2 days #4 tabs 11/19/22 [Rx Last Taken Unknown] hyoscyamine sulfate 0.125 mg sublingual tablet (Levsin/SL) 0.125 mg PO TID PRN abdominal pain #10 tabs 01/07/23 [Rx Last Taken Unknown] ondansetron 4 mg disintegrating tablet 4 mg PO Q8H PRN PRN Nausea #10 tabs 01/07/23 [Rx Last Taken Unknown] Allergy/AdvReac Type Severity Reaction Status Date / Time No Known Allergies Allergy Verified 11/19/22 09:24 Family History Other Bleeding disorder Cancer Diabetes Hypertension Surgical History Hx of foot surgery Social History Smoking Status: Current some day smoker tobacco type: cigarettes alcohol intake: never substance use type: does not use what type of physical activity do you participate in: none ROS ROS ED Constitutional Constitutional ED: Denies chills, fever(s) or sweats Eyes Eyes: Denies change in vision ENT ENT ED: Denies dysphagia or sore throat Cardiovascular Cardiovascular: Denies chest pain, leg edema, palpitations or racing heartbeat Respiratory/Chest Respiratory/Chest: Denies cough, dyspnea or dyspnea on exertion Gastrointestinal Gastrointestinal: Reports nausea and vomiting; Denies abdominal pain or diarrhea Genitourinary Genitourinary ED: Denies dysuria, hematuria or urinary frequency Musculoskeletal Musculoskeletal: Denies back pain, extremity pain or neck pain Integumentary Denies rash or wounds Neurologic Neurologic: Denies headache(s), paresthesias or weakness EXAM Physical Exam Const Vital Signs: 01/07/23 08:38 01/07/23 12:01 Temperature 98.7 F Temperature Source Temporal Pulse Rate 82 Respiratory Rate 16 18 Blood Pressure 161/105 H 154/99 H Blood Pressure Mean 123 117 Pulse Ox 99 Oxygen Delivery Method Room Air Positive well nourished and well developed Constitutional Narrative: Dry heaving in the room. Nontoxic no respiratory distress General Appearance ED: well developed HEENT Reports moist mucous membranes normocephalic and atraumatic Eyes PERRL, EOMs intact bilaterally and conjunctivae normal General Eye ED: Yes normal appearance of both eyes Neck no lymphadenopathy and supple General: Negative for tenderness Chest Wall Chest: Negative for tenderness Resp normal respiratory effort and normal air movement Effort and Inspection: symmetric chest movement; Negative for respiratory distress Cardio regular rate, regular rhythm and no murmurs Peripheral Pulses: pulses 2+ throughout GI normal to inspection, nondistended, normoactive bowel sounds and non-tender GI Narrative: Negative Morris's or McBurney's tenderness. Palpation: Negative for guarding or rebound tenderness present Back/Spine no CVA tenderness and no thoracic nor lumbar tenderness Extremity normal to inspection General Extremety ED: Negative for edema or tenderness General Extremity: Negative for edema Neuro oriented x3 and no sensory deficits noted Sensorium / Orientation: awake and alert Skin no rashes or lesions noted and no wounds MDM MDM MDM Narrative Medical decision making narrative: Interventions / MDM: Differential diagnosis: Cannabis hyperemesis syndrome, nausea and vomiting,DKA Diagnosis considered but do not suspect: No clinical bowel obstruction My EKG interpretation: N/A Imaging independently reviewed and interpreted by myself: N/A External documents reviewed: N/A Test considered but not ordered:N/A ED course: Patient reports THC use yesterday increasing vomiting today with retching. IV established, blood glucose was 206. Initially given Pepcid, Levsin and Zofran along with IV fluids. Labs are all stable her creatinine 1.12 BUN 10. Glucose is 202 gap is 9. No DKA on lab. hCG negative. Talk screen noted THC and ecstasy. Re-evaluation: Recurrent vomiting symptoms, she is treated with Haldol IV, additional IV fluids. Further discussion with significant other she uses THC on more occasions as long as he is known her. She denies having this episode in the past. Additional IV Reglan and capsaicin cream provided with improving symptoms. Consider admission for intractable vomiting, discussed p.o. challenge however patient declines this. She does not want to be admitted. She is provided prescription of Levsin, Zofran and sent home with a capsaicin cream. Outpatient follow-up with return precautions. Disposition discussed with patient/family/significant other: Patient and significant other Case discussed with consulting clinician: N/A This note was generated with e-[employer]ass[employer] dictation software. It may contain incorrect words, spelling, and punctuation that were not noted in checking the note before signing. Lab Data Attestation: I reviewed the patient's lab results. Labs: Laboratory Results - last 24 hr 01/07/23 01/07/23 01/07/23 09:10 09:16 10:35 WBC 9.0 RBC 4.92 Hgb 12.7 Hct 39.2 MCV 79.7 L MCH 25.8 L MCHC 32.4 RDW Std Deviation 38.9 RDW Coeff of John 13.5 Plt Count 380 MPV 9.1 Immature Gran % (Auto) 1.000 H Neut % (Auto) 53.2 Lymph % (Auto) 38.5 [place] % (Auto) 5.9 Eos % (Auto) 1.0 Baso % (Auto) 0.4 Absolute Neuts (auto) 4.8 Absolute Lymphs (auto) 3.48 Nucleated RBC % 0 Sodium 135 L Potassium 3.8 Chloride 102 Carbon Dioxide 24.0 Anion Gap 9 BUN 10 Creatinine 1.12 H Estim Creat Clear Calc 68.76 Est GFR (MDRD) Af Amer 73 Est GFR (MDRD) Non-Af 60 BUN/Creatinine Ratio 8.9 L Glucose 202 H Calcium 9.0 Urine Test Negative Urine Opiates Screen NEGATIVE Urine Methadone Screen NEGATIVE Ur Barbiturates Screen NEGATIVE Ur Phencyclidine Scrn NEGATIVE Ur Amphetamines Screen NEGATIVE MDMA (Ecstasy) Screen POSITIVE H U Benzodiazepines Scrn NEGATIVE Urine Cocaine Screen NEGATIVE U Cannabinoids Screen POSITIVE H Ur Drug Screen Comment POC Glucose 206 H Discharge Plan Triage Chief Complaint: Abd Pain ED Provider: Poli Barfield Dx/Rx/DC Orders Clinical Impression: Cannabis hyperemesis syndrome concurrent with and due to cannabis abuse, Diabetes, Nausea and vomiting Instructions: Cannabinoid Hyperemesis Syndrome, Diabetes: Caring for Your Body Prescriptions: New hyoscyamine sulfate [Levsin/SL] 0.125 mg tablet, sublingual 0.125 mg PO TID PRN (Reason: abdominal pain) Qty: 10 0RF ondansetron [ondansetron] 4 mg tablet,disintegrating 4 mg PO Q8H PRN PRN (Reason: Nausea) Qty: 10 0RF No Action albuterol sulfate [Ventolin HFA] 90 mcg/actuation HFA aerosol inhaler 1 inh INHALATION Q4H metformin 500 mg tablet 1,000 mg PO BID insulin glargine [Lantus Solostar U-100 Insulin] 100 unit/mL (3 mL) insulin pen 15 unit SUBCUT BID Patient Comments: inject 10 units subcutaneous twice daily sulfamethoxazole-trimethoprim 800-160 mg tablet 1 tab PO BID sulfamethoxazole-trimethoprim [Bactrim DS] 800-160 mg tablet 1 tab PO BID 2 Days Qty: 4 0RF cephalexin 500 mg capsule 500 mg PO TID 7 Days Qty: 21 0RF Primary Care Provider: [facility] Sophy Santiago Referrals: [facility] Sophy Santiago [Primary Care Provider] - 3-5 Days Activity Restrictions/Additional Instructions: Avoid marijuana use. Use the capsaicin cream every 6 hours as needed. Medication prescribed to use as needed. Continue oral fluids at home for hydration. Follow-up with your doctor. Disposition Disposition: Home, Self Care
[2023-01-07 09:14] LABS: Absolute Lymphocyte Count 3.48 X10^3/uL (0.83-4.51); Absolute Neutrophil Count 4.8 X10^3/uL (2.0-7.7); Basophil# 0.04 X10^3/uL; Basophil% 0.4 % (0-1); Eosinophil# 0.09 X10^3/uL; Hematocrit 39.2 % (37-47); Hemoglobin 12.7 g/dL (12.0-15.0); Lymphocyte # 3.48 X10^3/ul (0.83-4.51); Lymphocyte % 38.5 % (19-41); Mean Corp Hgb Conc 32.4 g/dL (32-36); Mean Corpuscular Hgb 25.8 pg (27.0-32.0); Mean Corpuscular Volume 79.7 fL (81-99); Mean Platelet Vol. 9.1 fl (6.2-12.0); Monocyte# 0.53 X10^3/uL; Monocyte% 5.9 % (0-10); NRBC Flagged by Analyzer 0 % (0-5); Neutrophil % 53.2 % (47-70); Platelet Count 380 K/mm3 (150-450); RBC Distribution Width CV 13.5 % (11.6-14.6); RBC Distribution Width SD 38.9 fl (35.1-43.9); Red Blood Count 4.92 M/mm3 (4.2-5.4)
[2023-01-07] MEDS: Ondansetron 4 MG/2 ML Vial IV (09:20)
[2023-01-07] MEDS: 0.9% Normal Saline 1,000 ML 1000 ML IV (09:20)
[2023-01-07] MEDS: Famotidine 200 MG/20 ML MDV 20 MG in 0.9% Normal Saline (Pres. free 8 ML 300 MG IV (09:20)
[2023-01-07 09:34] LABS: Bedside Glucose 206 mg/dL (74-106)
[2023-01-07 09:49] LABS: Anion Gap 9 (5-15); BUN 10 mg/dL (7-18); BUN/Creat Ratio 8.9 RATIO (10-20); Chloride 102 mmol/L (98-107); Creatinine, Serum 1.12 mg/dL (0.55-1.02); EST Glomerular Filtration Rate 60 mL/min (>60); Est Glom Filt Rate - Afr Amer 73 mL/min (>60); Estimated Creatinine Clearance 68.76 ml/min; Glucose 202 mg/dL (74-106); Potassium 3.8 mmol/L (3.5-5.1); Sodium Level 135 mmol/L (136-145)
[2023-01-07] MEDS: Hyoscyamine Sulfate 0.125 MG Tablet 0.25 MG SL (09:57)
[2023-01-07] MEDS: 0.9% Normal Saline 1,000 ML 999 ML IV (10:32)
[2023-01-07] MEDS: Haloperidol Lactate 5 MG/ML Vial 2 MG IV (10:33)
[2023-01-07 10:51] LABS: Internal QC Validated? YES +Cl - CLEAR BKGD; Pregnancy, Urine Negative Negative
[2023-01-07 11:04] LABS: Amphetamine Urine VISTA NEGATIVE (<1000 ng/mL); Barbiturate Urine VISTA NEGATIVE (< 200 ng/mL); Benzodiazepine Urine VISTA NEGATIVE (< 200 ng/mL); Cocaine Urine VISTA NEGATIVE (< 300 ng/mL); Ecstacy Urine VISTA POSITIVE (< 500 ng/mL); Methadone Urine VISTA NEGATIVE (< 300 ng/mL); PCP Urine VISTA NEGATIVE (< 25 ng/mL); THC Urine VISTA POSITIVE (< 50 ng/mL); Vista UDS pH Range 7
[2023-01-07 12:01] VITALS: BP 154/99; RESP 18
[2023-01-07] MEDS: Acetaminophen 500 MG Tablet 1000 MG PO (12:27)
[2023-01-07] MEDS: Metoclopramide 10 MG/2 ML Vial 5 MG IV (12:27)
[2023-01-07] MEDS: Capsaicin 0.025% 1 APPLIC Tube TOPICAL (13:11)
[2023-01-07 14:18] VITALS: RESP 14
== END 2023-01-07 14:19 | disposition home or self-care (01) ==
PROVIDERS: Emergency Provider Emergency Medicine; Visit Provider Emergency Medicine
DX: F12.188 Cannabis abuse with other cannabis-induced disorder (principal); E11.9 Type 2 diabetes mellitus without complications; R11.2 Nausea with vomiting, unspecified; I10 Essential (primary) hypertension; J45.909 Unspecified asthma, uncomplicated; F17.210 Nicotine dependence, cigarettes, uncomplicated
CPT/HCPCS: 80048; 80307; 81025; 82962; 85025; 96361; 96365; 96375; 99284; J7030; A4216; J2405; J3490

== ENCOUNTER 2023-01-09 11:52 | Emergency (ER) | payer MEDICAID, SELFPAY ==
[2023-01-09 11:53] VITALS: BP 160/94; PULSE 72; RESP 28; TEMP 36.8; O2SAT 99; BMI 41.1
[2023-01-09] MEDS: Dicyclomine 20 MG/2 ML Vial IM (12:18)
[2023-01-09] MEDS: Ketorolac 15 MG/ML Vial IV (12:18)
[2023-01-09] MEDS: Haloperidol Lactate 5 MG/ML Vial 2 MG IV (12:18)
[2023-01-09] MEDS: 0.9% Normal Saline 1,000 ML 1000 ML IV (12:18)
--- NOTE | 2023-01-09 12:30 | EDS_ITS ---
<Statement entered by Deann Guerrero MD - 01/09/23 17:31> Pt seen & evaluated w/ANGELES. I personally interviewed & exam the pt. I was involved in all aspects of pt's orders, interpretation of results & treatment Patient presents secondary to nausea and dry heaves. Patient was seen in the emergency room 2 days ago with similar symptoms secondary to marijuana use. She states she felt well yesterday but today has had dry heaves again. She complains of generalized abdominal pain. Patient sitting upright in bed no acute distress. I saw her after she was medicated and she is resting comfortably at this time. Heart is regular rate and rhythm. Lung sounds are clear. Abdomen is soft with mild diffuse tenderness to palpation. No guarding or rebound. CBC and chemistry studies largely unremarkable. At this time patient is able to tolerate p.o. She will be discharged home to continue her medications previously prescribed. HPI History of Present Illness Chief Complaint: Nausea/Vomiting Narrative Narrative: 32-year-old female with history of type 2 diabetes, on insulin, obesity, cannabis emesis who presents to the emergency department for ongoing nausea and vomiting. Patient was seen here on 06 January which was 3 days ago, she was seen for similar symptoms. At that time, she states that she did not smoke marijuana however her talk screen revealed marijuana as well as ecstasy. Patient states that she started developing the generalized abdominal pain as well as nausea and vomiting today. She was brought in by EMS, she did take a Zofran ODT prior to arrival has not helped. She denies any fever or chills. States she did not smoke marijuana yesterday. [facility] Medical History Anxiety Asthma Constipation Depression Diabetes Diabetes mellitus with diabetic polyneuropathy Hypertension Type 2 diabetes mellitus with foot ulcer Home Medications albuterol sulfate 90 mcg/actuation aerosol inhaler (Ventolin HFA) 1 inh inhalation Q4H SOB 04/06/22 [History Last Taken 06/24/22] metformin 500 mg tablet 1,000 mg PO BID DM 06/24/22 [History Last Taken 06/24/22] insulin glargine 100 unit/mL (3 mL) subcutaneous pen (Lantus Solostar U-100 Insulin) 15 unit subcut BID diabetes 08/12/22 [History Last Taken Unknown] cephalexin 500 mg capsule 500 mg PO TID 7 days #21 caps 11/19/22 [Rx Last Taken Unknown] sulfamethoxazole 800 mg-trimethoprim 160 mg tablet 1 tab PO BID 11/19/22 [History Last Taken Unknown] sulfamethoxazole 800 mg-trimethoprim 160 mg tablet (Bactrim DS) 1 tab PO BID 2 days #4 tabs 11/19/22 [Rx Last Taken Unknown] hyoscyamine sulfate 0.125 mg sublingual tablet (Levsin/SL) 0.125 mg PO TID PRN abdominal pain #10 tabs 01/07/23 [Rx Last Taken Unknown] ondansetron 4 mg disintegrating tablet 4 mg PO Q8H PRN PRN Nausea #10 tabs 01/07/23 [Rx Last Taken Unknown] dicyclomine 20 mg tablet 20 mg PO TID #14 tabs 01/09/23 [Rx Last Taken Unknown] promethazine 25 mg tablet 25 mg PO TID PRN nausea and vomiting #20 tabs 01/09/23 [Rx Last Taken Unknown] Allergy/AdvReac Type Severity Reaction Status Date / Time No Known Allergies Allergy Verified 01/09/23 12:02 Family History Other Bleeding disorder Cancer Diabetes Hypertension Surgical History Hx of foot surgery Social History Smoking Status: Current some day smoker tobacco type: cigarettes alcohol intake: never substance use type: does not use what type of physical activity do you participate in: none ROS ROS ED ROS Narrative Constitutional: Negative for fever, chills, weight loss, weakness Eyes: Negative for vision loss, vision change, double vision ENT: Negative for any sore throat, ear pain, congestion Cardiovascular: Negative for any chest pain, tightness, palpitations Respiratory: Negative for any cough, sputum production, hemoptysis, dyspnea, dyspnea on exertion, orthopnea Gastrointestinal: Negative for any diarrhea, constipation, blood in stool, blood in vomit. Positive for abdominal pain, nausea and vomiting : Negative for any urinary frequency, dysuria, retention, blood in urine Muscle skeletal: Negative for any muscle joint pain, stiffness, myalgias, arthralgias, neck pain, back pain Neurological: Negative for any headache, syncope, numbness or tingling, dizziness Skin: Negative for any rashes, lumps, itching, abrasions, lacerations Psychiatric: Negative for any depression, anxiety, stress, suicidal ideation, homicidal ideation Hematologic: Negative for any easy bruising, excessive bruising, easy bleeding Allergies: Negative for any eczema, hives, rash EXAM Physical Exam Narrative Exam Narrative: Vital signs reviewed. On initial arrival, patient was dry heaving. Patient complains of generalized abdominal pain and nonstop vomiting HEET: Head normocephalic atraumatic, TMs clear bilaterally. Posterior pharynx is clear, moist mucous membranes. Nares clear bilaterally. Neck: Supple with no lymphadenopathy or tenderness. No signs of meningismus, negative jolt sign. Cardiac: Regular rate and rhythm no murmurs gallops or rubs, equal peripheral pulses bilaterally. Respiratory: Lungs clear to auscultation bilaterally. No chest tenderness. Abdomen: Soft, nondistended. No abdominal bruit or pulsatile masses. No hepatosplenomegaly. Patient tenderness throughout the entire abdominal exam, some pain was out of proportion when barely touching the patient's abdomen. Extremities: No peripheral edema, no signs of gross trauma or deformity. Active full range of motion of all extremities. Neuro: Cranial nerves II through XII intact, no focal neurological deficits. Skin: Clean dry and intact with no rash, purpura, petechiae, vesicles or pustules. Backs/flank: No CVA tenderness, no midline spinal tenderness, no deformity. Psych: Normal mood and affect. No SI, HI or acute psychosis. Const Vital Signs: 01/09/23 11:53 Temperature 98.2 F Temperature Source Oral Pulse Rate 72 Respiratory Rate 28 H Blood Pressure 160/94 H Blood Pressure Mean 116 Pulse Ox 99 Oxygen Delivery Method Room Air Positive well nourished and well developed General Appearance ED: well developed MDM MDM Lab Data Labs: Laboratory Results - last 24 hr 01/09/23 01/09/23 01/09/23 12:10 12:26 12:40 WBC 10.7 RBC 5.01 Hgb 13.0 Hct 40.0 MCV 79.8 L MCH 25.9 L MCHC 32.5 RDW Std Deviation 38.3 RDW Coeff of John 13.4 Plt Count 397 MPV 9.5 Immature Gran % (Auto) 0.900 Neut % (Auto) 70.5 H Lymph % (Auto) 23.0 Rogers % (Auto) 4.9 Eos % (Auto) 0.2 Baso % (Auto) 0.5 Absolute Neuts (auto) 7.6 Absolute Lymphs (auto) 2.47 Nucleated RBC % 0 Sodium 134 L Potassium 4.0 Chloride 101 Carbon Dioxide 21.0 Anion Gap 12 BUN 9 Creatinine 1.14 H Estim Creat Clear Calc 67.55 Est GFR (MDRD) Af Amer 72 Est GFR (MDRD) Non-Af 59 L BUN/Creatinine Ratio 7.9 L Glucose 247 H Calcium 9.5 Total Bilirubin 0.60 AST 19 ALT 20 Alkaline Phosphatase 85 Total Protein 8.7 H Albumin 3.5 Globulin 5.2 H Albumin/Globulin Ratio 0.7 L Lipase 38 Urine Color Yellow Urine Clarity Clear Urine pH 8.0 Ur Specific [place] 1.015 Urine Protein 15 H Urine Glucose (UA) 1000 H Urine Ketones 50 H Urine Occult Blood 10 H Urine Nitrite Negative Urine Bilirubin Negative Urine Urobilinogen Normal Ur Leukocyte Esterase 25 H Urine RBC 0 SEEN Urine WBC 0 SEEN Ur Squamous Epith Cells 5-10 SEEN Urine Bacteria 0 SEEN Urine Mucus 0 SEEN Urine Test Negative POC Glucose 254 H Treatment and Re-Evaluation :: Patient arrives with nausea and vomiting, similar appearance from January 06, 2023. At that time, she was treated for hyperemesis cannabis. This is on the differential, as well as viral gastroenteritis, gastroparesis, DKA. Patient will receive basic laboratory values, she will be given IV fluids, Haldol, Toradol as well as IM Bentyl. On reevaluation, the patient was feeling much better, the patient states that she felt slightly sleepy was able to get some rest. Patient's laboratory values show old a normal CBC, patient's chemistries showed a creatinine of 1.14, this is baseline for the patient. Glucose was 247 however patient is usually in the 200s. BUN was normal patient showed no signs or symptoms of DKA, acute infection. Patient's labs are similar to when she was here 2 days ago. Patient's urinalysis was negative for any infection, patient is . On r eevaluation, patient was feeling better, she did request something for pain, she will receive an oral tramadol. She will be diagnosed with hyperemesis cannabinoid ism, possible gastroparesis. She will follow-up with GI. Instructed to maintain hydration, to take her medications as prescribed. All questions were answered, at this time, there is no evidence of any acute abdominal process. Patient will follow-up outpatient, all questions answered, patient stable for discharge Discharge Plan Triage Chief Complaint: Nausea/Vomiting Other Complaint: Abd Pain ED Midlevel Provider: Carlos Calvo ED Provider: Deann Guerrero Dx/Rx/DC Orders Clinical Impression: Cannabinoid hyperemesis syndrome, Nausea & vomiting Instructions: Self-Care for Vomiting and Diarrhea, ED Vomiting (Adult) Prescriptions: New promethazine 25 mg tablet 25 mg PO TID PRN (Reason: nausea and vomiting) Qty: 20 0RF dicyclomine 20 mg tablet 20 mg PO TID Qty: 14 0RF No Action albuterol sulfate [Ventolin HFA] 90 mcg/actuation HFA aerosol inhaler 1 inh INHALATION Q4H metformin 500 mg tablet 1,000 mg PO BID insulin glargine [Lantus Solostar U-100 Insulin] 100 unit/mL (3 mL) insulin pen 15 unit SUBCUT BID Patient Comments: inject 10 units subcutaneous twice daily sulfamethoxazole-trimethoprim 800-160 mg tablet 1 tab PO BID sulfamethoxazole-trimethoprim [Bactrim DS] 800-160 mg tablet 1 tab PO BID 2 Days Qty: 4 0RF cephalexin 500 mg capsule 500 mg PO TID 7 Days Qty: 21 0RF hyoscyamine sulfate [Levsin/SL] 0.125 mg tablet, sublingual 0.125 mg PO TID PRN (Reason: abdominal pain) Qty: 10 0RF ondansetron [ondansetron] 4 mg tablet,disintegrating 4 mg PO Q8H PRN PRN (Reason: Nausea) Qty: 10 0RF Primary Care Provider: [facility] Sophy Santiago Referrals: FriendVenkatesh DO [Med Staff - Active Staff] - [facility] [place] [Primary Care Provider] - Activity Restrictions/Additional Instructions: Please decrease your marijuana use. Please maintain hydration, use antinausea medicine as needed. Disposition Disposition: Home, Self Care
[2023-01-09 12:31] LABS: Absolute Lymphocyte Count 2.47 X10^3/uL (0.83-4.51); Absolute Neutrophil Count 7.6 X10^3/uL (2.0-7.7); Basophil# 0.05 X10^3/uL; Basophil% 0.5 % (0-1); Eosinophil# 0.02 X10^3/uL; Eosinophils% 0.2 % (0-5); Lymphocyte # 2.47 X10^3/ul (0.83-4.51); Mean Corp Hgb Conc 32.5 g/dL (32-36); Mean Corpuscular Hgb 25.9 pg (27.0-32.0); Mean Corpuscular Volume 79.8 fL (81-99); Mean Platelet Vol. 9.5 fl (6.2-12.0); Monocyte# 0.52 X10^3/uL; Monocyte% 4.9 % (0-10); NRBC Flagged by Analyzer 0 % (0-5); Neutrophil # 7.56 X10^3/uL (2.7-7.7); Neutrophil % 70.5 % (47-70); Platelet Count 397 K/mm3 (150-450); RBC Distribution Width CV 13.4 % (11.6-14.6); RBC Distribution Width SD 38.3 fl (35.1-43.9); Red Blood Count 5.01 M/mm3 (4.2-5.4); White Blood Count 10.7 K/mm3 (4.4-11.0)
[2023-01-09 12:45] LABS: ALB/GLOB Ratio 0.7 RATIO (0.9-2.4); AST(SGOT) 19 U/L (15-37); Alanine Aminotransfer ALT/SGPT 20 U/L (13-56); Albumin, Serum 3.5 g/dL (3.2-5.0); Alkaline Phosphatase 85 U/L (45-117); Anion Gap 12 (5-15); BUN 9 mg/dL (7-18); BUN/Creat Ratio 7.9 RATIO (10-20); Calcium,Total 9.5 mg/dL (8.5-10.1); Chloride 101 mmol/L (98-107); Creatinine, Serum 1.14 mg/dL (0.55-1.02); EST Glomerular Filtration Rate 59 mL/min (>60); Est Glom Filt Rate - Afr Amer 72 mL/min (>60); Estimated Creatinine Clearance 67.55 ml/min; Globulin 5.2 g/dL (2.2-4.2); Glucose 247 mg/dL (74-106); Lipase 38 U/L (13-75); Protein, Total 8.7 g/dL (6.4-8.2); Sodium Level 134 mmol/L (136-145)
[2023-01-09 12:45] LABS: Bedside Glucose 254 mg/dL (74-106)
[2023-01-09 12:46] LABS: Bacteria 0 SEEN /hpf (None Seen); Mucous, Urine 0 SEEN /hpf (<or=2+); Red Blood Cells-Urine 0 SEEN /hpf (0-5); White Blood Cells 0 SEEN /hpf (0-5)
[2023-01-09 13:03] LABS: Color, Urine Yellow (Yellow); Glucose, Dipstick 1000 mg/dl (Normal); Ketone-Dipstick 50 mg/dl (Negative); Leukocyte Esterase-Dipstick 25 /ul (Negative); Nitrite-Dipstick Negative (Negative); Occult Blood-Urine 10 /ul (Negative); Protein-Dipstick 15 mg/dl (Negative); Specific Gravity, Urine 1.015 (1.002-1.030); Urine Bilirubin Dipstick Negative (Negative); Urine Clarity Clear (Clear); Urine Urobilinogen Normal (Normal)
[2023-01-09 13:15] LABS: Internal QC Validated? YES +Cl - CLEAR BKGD; Pregnancy, Urine Negative Negative; Squamous Epithelial Cells - UA 5-10 SEEN /hpf (5-10)
[2023-01-09 15:21] VITALS: BP 139/70; PULSE 84; RESP 16; O2SAT 97
[2023-01-09] MEDS: traMADol 50 MG Tablet PO (15:30)
== END 2023-01-09 16:09 | disposition home or self-care (01) ==
PROVIDERS: Nurse Practitioner; Emergency Provider Emergency Medicine; Visit Provider Emergency Medicine
DX: O99.320 Drug use complicating pregnancy, unspecified trimester (principal); E11.42 Type 2 diabetes mellitus with diabetic polyneuropathy; Z79.4 Long term (current) use of insulin; R11.2 Nausea with vomiting, unspecified; E66.9 Obesity, unspecified; I10 Essential (primary) hypertension; F17.210 Nicotine dependence, cigarettes, uncomplicated; F12.90 Cannabis use, unspecified, uncomplicated; O99.280 Endocrine, nutritional and metabolic diseases complicating pregnancy, unspecified trimester; O99.210 Obesity complicating pregnancy, unspecified trimester; O99.330 Smoking (tobacco) complicating pregnancy, unspecified trimester; Z3A.00 Weeks of gestation of pregnancy not specified
CPT/HCPCS: 80053; 81001; 81025; 82962; 83690; 85025; 96361; 96372; 96374; 96375; 99285; J7030; A4216

== ENCOUNTER 2023-01-11 22:58 | Emergency (ER) | payer MEDICAID, SELFPAY ==
[2023-01-11 22:58] VITALS: BP 185/121; PULSE 86; RESP 18; TEMP 36; O2SAT 99; BMI 33.0
[2023-01-12] MEDS: Haloperidol Lactate 5 MG/ML Vial IV (00:37)
[2023-01-12] MEDS: 0.9% Normal Saline 1,000 ML 999 ML IV (00:37)
[2023-01-12 00:49] LABS: Absolute Neutrophil Count 9.9 X10^3/uL (2.0-7.7); Basophil# 0.04 X10^3/uL; Basophil% 0.3 % (0-1); Hematocrit 37.4 % (37-47); Hemoglobin 12.1 g/dL (12.0-15.0); Lymphocyte % 14.5 % (19-41); Mean Corp Hgb Conc 32.4 g/dL (32-36); Mean Corpuscular Hgb 26.2 pg (27.0-32.0); Monocyte# 0.62 X10^3/uL; NRBC Flagged by Analyzer 0 % (0-5); Neutrophil # 9.87 X10^3/uL (2.7-7.7); Neutrophil % 79.6 % (47-70); Platelet Count 352 K/mm3 (150-450); RBC Distribution Width CV 13.7 % (11.6-14.6); RBC Distribution Width SD 38.9 fl (35.1-43.9); Red Blood Count 4.62 M/mm3 (4.2-5.4); White Blood Count 12.4 K/mm3 (4.4-11.0)
[2023-01-12 01:05] LABS: AST(SGOT) 12 U/L (15-37); Alanine Aminotransfer ALT/SGPT 14 U/L (13-56); Albumin, Serum 3.3 g/dL (3.2-5.0); Alkaline Phosphatase 68 U/L (45-117); Anion Gap 9 (5-15); BUN 11 mg/dL (7-18); BUN/Creat Ratio 9.7 RATIO (10-20); Bilirubin, Direct 0.14 mg/dL (0.00-0.30); Chloride 101 mmol/L (98-107); Creatinine, Serum 1.13 mg/dL (0.55-1.02); EST Glomerular Filtration Rate 60 mL/min (>60); Est Glom Filt Rate - Afr Amer 72 mL/min (>60); Estimated Creatinine Clearance 68.15 ml/min; Globulin 4.5 g/dL (2.2-4.2); Glucose 267 mg/dL (74-106); Lipase 37 U/L (13-75); Potassium 3.4 mmol/L (3.5-5.1); Protein, Total 7.8 g/dL (6.4-8.2); Sodium Level 134 mmol/L (136-145)
[2023-01-12 01:55] VITALS: RESP 16
--- NOTE | 2023-01-12 01:56 | EX.ED.DYSGE1 ---
HPI History of Present Illness Chief Complaint: Nausea/Vomiting Informant: patient Narrative Narrative: Patient is a 32-year-old female who presents with nausea and vomiting. She has a past medical history of diabetes as well as marijuana use. She was seen recently in our ER secondary to cannabis hyperemesis syndrome. She was seen at an outside hospital yesterday where she had blood work and a CT scan obtained as well. She states she was prescribed medication for symptoms but she was not able to pick them up. She returns today for generalized abdominal discomfort with bouts of nausea and vomiting. She states she has not used marijuana since nor has she been around it but with her persistent symptoms and her inability to obtain her outpatient prescription she presents for evaluation [facility] Medical History Anxiety Asthma Constipation Depression Diabetes Diabetes mellitus with diabetic polyneuropathy Hypertension Type 2 diabetes mellitus with foot ulcer Home Medications albuterol sulfate 90 mcg/actuation aerosol inhaler (Ventolin HFA) 1 inh inhalation Q4H SOB 04/06/22 [History Last Taken 06/24/22] metformin 500 mg tablet 1,000 mg PO BID DM 06/24/22 [History Last Taken 06/24/22] insulin glargine 100 unit/mL (3 mL) subcutaneous pen (Lantus Solostar U-100 Insulin) 15 unit subcut BID diabetes 08/12/22 [History Last Taken Unknown] cephalexin 500 mg capsule 500 mg PO TID 7 days #21 caps 11/19/22 [Rx Last Taken Unknown] sulfamethoxazole 800 mg-trimethoprim 160 mg tablet 1 tab PO BID 11/19/22 [History Last Taken Unknown] sulfamethoxazole 800 mg-trimethoprim 160 mg tablet (Bactrim DS) 1 tab PO BID 2 days #4 tabs 11/19/22 [Rx Last Taken Unknown] hyoscyamine sulfate 0.125 mg sublingual tablet (Levsin/SL) 0.125 mg PO TID PRN abdominal pain #10 tabs 01/07/23 [Rx Last Taken Unknown] ondansetron 4 mg disintegrating tablet 4 mg PO Q8H PRN PRN Nausea #10 tabs 01/07/23 [Rx Last Taken Unknown] dicyclomine 20 mg tablet 20 mg PO TID #14 tabs 01/09/23 [Rx Last Taken Unknown] promethazine 25 mg tablet 25 mg PO TID PRN nausea and vomiting #20 tabs 01/09/23 [Rx Last Taken Unknown] trazodone 300 mg tablet 300 mg PO QHS 01/12/23 [History Last Taken Unknown] Allergy/AdvReac Type Severity Reaction Status Date / Time No Known Allergies Allergy Verified 01/11/23 23:00 Family History Other Bleeding disorder Cancer Diabetes Hypertension Surgical History Hx of foot surgery Social History Smoking Status: Current every day smoker tobacco type: cigarettes alcohol intake: never substance use type: does not use what type of physical activity do you participate in: none ROS ROS ED Constitutional Constitutional ED: Denies chills or fever(s) ENT ENT ED: Denies sore throat Cardiovascular Cardiovascular: Denies chest pain Respiratory/Chest Respiratory/Chest: Denies cough or dyspnea Gastrointestinal Gastrointestinal: Reports abdominal pain, nausea and vomiting; Denies diarrhea Genitourinary Genitourinary ED: Denies dysuria or hematuria Musculoskeletal Musculoskeletal: Denies myalgias Integumentary Denies rash Neurologic Neurologic: Denies headache(s) Hematologic/Lymphatic Hematologic/Lymphatic: Denies easy bleeding or easy bruising EXAM Physical Exam Const Vital Signs: 01/11/23 22:58 01/12/23 01:55 01/12/23 02:13 Temperature 96.8 F L Temperature Source Temporal Pulse Rate 86 84 Respiratory Rate 18 16 18 Blood Pressure 185/121 H 141/87 H Blood Pressure Mean 142 Pulse Ox 99 99 Oxygen Delivery Method Room Air Positive well nourished, well developed and obese General Appearance ED: well developed Nutritional Appearance: obese HEENT Reports moist mucous membranes Eyes PERRL and EOMs intact bilaterally General Eye ED: Negative for scleral icterus Neck supple Neck Narrative: No nuchal rigidity or meningeal signs present Resp normal respiratory effort and clear to auscultation bilaterally Cardio regular rate and regular rhythm Rate: other Other Details: Radial pulses are plus 2 out of 4 bilaterally are equal and symmetric GI non-distended GI Narrative: Abdomen is obese soft and nondistended with hyperactive bowel sounds. Patient has diffuse pain on palpation without voluntary guarding or rigidity. No pulsatile mass or fluid wave Auscultation: hyperactive bowel sounds Palpation: soft Back/Spine no CVA tenderness Extremity normal to inspection Neuro oriented x3 and CN's II-XII intact bilaterally Sensorium / Orientation: alert Psych mental status grossly normal Skin no rashes or lesions noted and skin turgor normal General Skin Exam: Negative for jaundice MDM MDM MDM Narrative Medical decision making narrative: Patient presented to the ER mildly hypertensive otherwise with stable vitals. Abdomen is soft and nonsurgical and she was just seen 24 hours ago at an outside hospital and had blood work and a CT scan obtained. Therefore I felt no need for repeat imaging studies. Differential diagnosis includes pancreatitis versus biliary colic versus gastritis versus cannabis hyperemesis syndrome versus viral gastroenteritis. Blood work showed mild leukocytosis but this is actually improved from the chart review of the previous day. Otherwise labs show no clinically significant finding. The outpatient records from the previous hospital visit were obtained and did show changes concerning for possible gallbladder dysfunction or swelling of the left fallopian tube. However based on the patient's generalized location of pain and not localized to the right upper quadrant or left lower quadrant I do not feel these clinically correlate with her presentation. After IV hydration and IV Haldol she had resolution of symptoms. Therefore at this time I feel she is safe for discharge but she will be given outpatient order form for ultrasounds of her gallbladder and pelvis secondary to the abnormal CT findings from the previous day. History & Record Review Discussion w/independent historian: Patient Lab Data Attestation: I reviewed the patient's lab results. Labs: Laboratory Results - last 24 hr 01/12/23 00:37 WBC 12.4 H RBC 4.62 Hgb 12.1 Hct 37.4 MCV 81.0 MCH 26.2 L MCHC 32.4 RDW Std Deviation 38.9 RDW Coeff of John 13.7 Plt Count 352 MPV 9.0 Immature Gran % (Auto) 0.600 Neut % (Auto) 79.6 H Lymph % (Auto) 14.5 L Gilmer % (Auto) 5.0 Eos % (Auto) 0.0 Baso % (Auto) 0.3 Absolute Neuts (auto) 9.9 H Absolute Lymphs (auto) 1.80 Nucleated RBC % 0 Sodium 134 L Potassium 3.4 L Chloride 101 Carbon Dioxide 24.0 Anion Gap 9 BUN 11 Creatinine 1.13 H Estim Creat Clear Calc 68.15 Est GFR (MDRD) Af Amer 72 Est GFR (MDRD) Non-Af 60 BUN/Creatinine Ratio 9.7 L Glucose 267 H Calcium 9.0 Total Bilirubin 0.40 Direct Bilirubin 0.14 AST 12 L ALT 14 Alkaline Phosphatase 68 Total Protein 7.8 Albumin 3.3 Globulin 4.5 H Lipase 37 Discharge Plan Triage Chief Complaint: Nausea/Vomiting ED Provider: Perico Norman Dx/Rx/DC Orders Clinical Impression: Nausea and vomiting, Diabetes, Cannabinoid hyperemesis syndrome Instructions: ED Vomiting (Adult) Prescriptions: No Action albuterol sulfate [Ventolin HFA] 90 mcg/actuation HFA aerosol inhaler 1 inh INHALATION Q4H metformin 500 mg tablet 1,000 mg PO BID insulin glargine [Lantus Solostar U-100 Insulin] 100 unit/mL (3 mL) insulin pen 15 unit SUBCUT BID Patient Comments: inject 10 units subcutaneous twice daily sulfamethoxazole-trimethoprim 800-160 mg tablet 1 tab PO BID sulfamethoxazole-trimethoprim [Bactrim DS] 800-160 mg tablet 1 tab PO BID 2 Days Qty: 4 0RF cephalexin 500 mg capsule 500 mg PO TID 7 Days Qty: 21 0RF hyoscyamine sulfate [Levsin/SL] 0.125 mg tablet, sublingual 0.125 mg PO TID PRN (Reason: abdominal pain) Qty: 10 0RF ondansetron [ondansetron] 4 mg tablet,disintegrating 4 mg PO Q8H PRN PRN (Reason: Nausea) Qty: 10 0RF promethazine 25 mg tablet 25 mg PO TID PRN (Reason: nausea and vomiting) Qty: 20 0RF dicyclomine 20 mg tablet 20 mg PO TID Qty: 14 0RF trazodone 300 mg tablet 300 mg PO QHS Patient Comments: take 1 tablets 30 minutes before bedtime Other Ambulatory Orders: Gallbladder (Routine) Facility: [facility] - Location: [facility] Ordered By: Dr. Perico Norman Transvaginal Non- (Routine) Facility: [facility] - Location: [facility] Ordered By: Dr. Perico Norman Primary Care Provider: [facility] Sophy Santiago Referrals: [facility] Sophy Santiago [Primary Care Provider] - Activity Restrictions/Additional Instructions: Please fill the prescriptions that were prescribed to you from [facility] to help control your nausea and vomiting. Based on their CAT scan showing potential gallbladder or fallopian tube issues please have the ultrasounds obtained that were ordered on an outpatient basis this evening. If you have any further concerns return to the ER for repeat evaluation Disposition Disposition: Home, Self Care Discharge Date/Time: 01/12/23 02:14
[2023-01-12 02:13] VITALS: BP 141/87; PULSE 84; RESP 18; O2SAT 99
== END 2023-01-12 02:14 | disposition home or self-care (01) ==
PROVIDERS: Emergency Provider Emergency Medicine; Visit Provider Emergency Medicine
DX: F12.988 Cannabis use, unspecified with other cannabis-induced disorder (principal); E11.42 Type 2 diabetes mellitus with diabetic polyneuropathy; I10 Essential (primary) hypertension; F17.210 Nicotine dependence, cigarettes, uncomplicated; J45.909 Unspecified asthma, uncomplicated; E66.9 Obesity, unspecified
CPT/HCPCS: 80048; 80076; 83690; 85025; 96361; 96374; 99283; J7030; A4216

== ENCOUNTER 2023-01-12 10:44 | Emergency (ER) | payer MEDICAID, SELFPAY ==
[2023-01-12 10:45] VITALS: BP 162/05; PULSE 85; RESP 16; TEMP 35.1; O2SAT 99; BMI 37.6
--- NOTE | 2023-01-12 10:54 | ED.VIS.GI ---
HPI HPI - GI History of Present Illness Chief Complaint: Nausea/Vomiting Informant: patient Nausea/Vomiting/Emesis GI Symptom: Positive for Nausea and Vomiting Onset: Days Severity: Moderate Diarrhea/Melena/Hematochezia GI Symptom: Negative for Diarrhea, Melena or Hematochezia Associated Symptoms Associated Symptoms: Negative for Dysuria, Frequency, Hematuria or Urgency Narrative Narrative: 32-year-old female history of marijuana use. History of hyperemesis syndrome. Had nausea and vomiting for 6 days. She has been seen here and other local emergency departments. States she has had continued nausea and vomiting. Denies any fever or chills. No diarrhea. No dysuria. Prior similar symptoms: Yes Recent Illness/Hospitalization: No PFSH PFSH Medical History Anxiety Asthma Constipation Depression Diabetes Diabetes mellitus with diabetic polyneuropathy Hypertension Type 2 diabetes mellitus with foot ulcer Home Medications albuterol sulfate 90 mcg/actuation aerosol inhaler (Ventolin HFA) 1 inh inhalation Q4H SOB 04/06/22 [History Last Taken 06/24/22] metformin 500 mg tablet 1,000 mg PO BID DM 06/24/22 [History Last Taken 06/24/22] insulin glargine 100 unit/mL (3 mL) subcutaneous pen (Lantus Solostar U-100 Insulin) 15 unit subcut BID diabetes 08/12/22 [History Last Taken Unknown] cephalexin 500 mg capsule 500 mg PO TID 7 days #21 caps 11/19/22 [Rx Last Taken Unknown] sulfamethoxazole 800 mg-trimethoprim 160 mg tablet 1 tab PO BID 11/19/22 [History Last Taken Unknown] sulfamethoxazole 800 mg-trimethoprim 160 mg tablet (Bactrim DS) 1 tab PO BID 2 days #4 tabs 11/19/22 [Rx Last Taken Unknown] hyoscyamine sulfate 0.125 mg sublingual tablet (Levsin/SL) 0.125 mg PO TID PRN abdominal pain #10 tabs 01/07/23 [Rx Last Taken Unknown] ondansetron 4 mg disintegrating tablet 4 mg PO Q8H PRN PRN Nausea #10 tabs 01/07/23 [Rx Last Taken Unknown] dicyclomine 20 mg tablet 20 mg PO TID #14 tabs 01/09/23 [Rx Last Taken Unknown] promethazine 25 mg tablet 25 mg PO TID PRN nausea and vomiting #20 tabs 01/09/23 [Rx Last Taken Unknown] ondansetron 4 mg disintegrating tablet 4 mg PO Q6H PRN nausea and vomiting #7 tabs 01/12/23 [Rx Last Taken Unknown] trazodone 300 mg tablet 300 mg PO QHS 01/12/23 [History Last Taken Unknown] Allergy/AdvReac Type Severity Reaction Status Date / Time No Known Allergies Allergy Verified 01/11/23 23:00 Family History Other Bleeding disorder Cancer Diabetes Hypertension Surgical History Hx of foot surgery Social History Smoking Status: Current every day smoker tobacco type: cigarettes alcohol intake: never substance use type: does not use what type of physical activity do you participate in: none ROS ROS ED ROS Narrative Nausea and vomiting. Review of Systems ROS Unobtainable: Denies due to encephalopathy Constitutional Constitutional ED: Denies chills or fever(s) ENT ENT ED: Denies ear pain Cardiovascular Cardiovascular: Denies chest pain Respiratory/Chest Respiratory/Chest: Denies cough or dyspnea Gastrointestinal Gastrointestinal: Reports nausea and vomiting; Denies constipation or diarrhea Genitourinary Genitourinary ED: Denies dysuria or hematuria Musculoskeletal Musculoskeletal: Denies arthralgias Integumentary Denies abscess Neurologic Neurologic: Denies headache(s) Psychiatric Psychiatric: Denies anxiety or depression Endocrine Endocrinology: Denies polydipsia Hematologic/Lymphatic Hematologic/Lymphatic: Denies easy bleeding Allergic/Immunologic Allergic/Immunologic ED: Denies mouth swelling or tongue swelling EXAM Physical Exam Narrative Exam Narrative: 32-year-old female retching. Vital signs stable afebrile. She does not look septic or toxic. H EENT exam dry mucous membranes. Neck nontender. Lungs clear to auscultation bilaterally. Heart regular rhythm rate about 85 no murmur. Abdomen soft nondistended normal bowel sounds no peritoneal signs. No localizing tenderness. No hernia or mass. No obstruction. Moving all 4 extremities. Nontender no edema. She is awake and alert. Answering questions following commands. Const Vital Signs: 01/12/23 10:45 Temperature 95.2 F L Temperature Source Temporal Pulse Rate 85 Respiratory Rate 16 Blood Pressure 162/05 H Blood Pressure Mean 57 Pulse Ox 99 Oxygen Delivery Method Room Air Positive well nourished and well developed; Negative for cachectic, contractures or unkempt General Appearance ED: well developed and NAD; Negative for unkempt, cachectic, contractures or pallor Nutritional Appearance: Negative for cachectic HEENT Reports dry mucous membranes; Denies moist mucous membranes normocephalic and atraumatic; Negative for trauma or tenderness Mouth ED: Yes dry mucous membranes Mouth: dry mucous membranes Eyes PERRL and EOMs intact bilaterally General Eye ED: Negative for pale conjunctiva or scleral icterus Neck no lymphadenopathy, supple and no JVD General: Negative for tenderness Carotids: Negative for other Lymph Lymphatic: Negative for other Resp normal respiratory effort and clear to auscultation bilaterally Effort and Inspection: Negative for respiratory distress Auscultation: Negative for rales, rhonchi or wheezes Cardio regular rate, regular rhythm, S1 normal heart sound, S2 normal heart sound and no murmurs Rate: Negative for bradycardia or tachycardic Rhythm: Negative for abnormal rhythm GI non-tender, non-distended and no masses Inspection: Negative for abdominal distention Auscultation: normoactive bowel sounds Palpation: soft; Negative for tender, guarding, rigid, hepatomegaly, splenomegaly, hernia, mass, pulsatile mass or rebound tenderness present Back/Spine no CVA tenderness General Back: Negative for CVA tenderness Cervical Spine: Negative for cervical spine tenderness Thoracic Spine / Upper Back: Negative for thoracic spinal tenderness Lumbar Spine / Lower Back: Negative for lumbar spinal tenderness Coccyx: Negative for other Extremity full ROM General Extremety ED: Negative for edema or tenderness General Extremity: Negative for edema Neuro CN's II-XII intact bilaterally and moves all extremities Sensorium / Orientation: alert, oriented to person, oriented to place and oriented to time; Negative for orientation impaired, confused, lethargic or stuporous Motor Exam: strength 5/5 throughout Psych mental status grossly normal and thought process normal Appearance: Negative for unkempt Attitude: No agitated Mood & Affect: Negative for depressed, anxious or tearful Skin no wounds General Skin Exam: Negative for jaundice or pallor Lesions: no lesions Rashes: no rashes Trauma: Negative for abrasion Nails: Negative for discolored MDM MDM MDM Narrative Medical decision making narrative: 32-year-old with nausea and vomiting history of hyperemesis syndrome from cannabis use. Her last cannabis use was within the last week. She denies any fever, chills or diarrhea. She will be treated with IV fluids, Zofran, Ativan and Benadryl. A liter normal saline. I am checking a chemistry panel because of her history of diabetes. Repeat exam patient is doing well at 1:15 PM. Abdomen is benign. Her nausea and vomiting is resolved. She will be discharged home with Zofran. Fluids and rest. I urged her to stop using smoking marijuana that her symptoms would continue as long as she continues to use it. History & Record Review Discussion w/independent historian: Patient Lab Data Attestation: I reviewed the patient's lab results. Lab results narrative: Chemistry shows a potassium of 3.0. Gap is 6. Normal BUN and creatinine of 7 and 1. Glucose is 208 she is diabetic. Labs: Laboratory Results - last 24 hr 01/12/23 11:20 Sodium 137 Potassium 3.0 L Chloride 105 Carbon Dioxide 26.0 Anion Gap 6 BUN 7 Creatinine 1.00 Estim Creat Clear Calc 77.01 Est GFR (MDRD) Af Amer 84 Est GFR (MDRD) Non-Af 69 BUN/Creatinine Ratio 7.0 L Glucose 208 H Calcium 8.7 Discharge Plan Triage Chief Complaint: Nausea/Vomiting ED Provider: Fabricio Gueavra Dx/Rx/DC Orders Clinical Impression: Cannabis hyperemesis syndrome concurrent with and due to cannabis abuse, Diabetes Instructions: ED Drug Abuse, ED Vomiting (Adult) Prescriptions: New ondansetron 4 mg tablet,disintegrating 4 mg PO Q6H PRN (Reason: nausea and vomiting) Qty: 7 0RF No Action albuterol sulfate [Ventolin HFA] 90 mcg/actuation HFA aerosol inhaler 1 inh INHALATION Q4H metformin 500 mg tablet 1,000 mg PO BID insulin glargine [Lantus Solostar U-100 Insulin] 100 unit/mL (3 mL) insulin pen 15 unit SUBCUT BID Patient Comments: inject 10 units subcutaneous twice daily sulfamethoxazole-trimethoprim 800-160 mg tablet 1 tab PO BID sulfamethoxazole-trimethoprim [Bactrim DS] 800-160 mg tablet 1 tab PO BID 2 Days Qty: 4 0RF cephalexin 500 mg capsule 500 mg PO TID 7 Days Qty: 21 0RF hyoscyamine sulfate [Levsin/SL] 0.125 mg tablet, sublingual 0.125 mg PO TID PRN (Reason: abdominal pain) Qty: 10 0RF ondansetron [ondansetron] 4 mg tablet,disintegrating 4 mg PO Q8H PRN PRN (Reason: Nausea) Qty: 10 0RF promethazine 25 mg tablet 25 mg PO TID PRN (Reason: nausea and vomiting) Qty: 20 0RF dicyclomine 20 mg tablet 20 mg PO TID Qty: 14 0RF trazodone 300 mg tablet 300 mg PO QHS Patient Comments: take 1 tablets 30 minutes before bedtime Primary Care Provider: [facility] Sophy Santiago Referrals: [facility] Sophy Santiago [Primary Care Provider] - 3-5 Days if not improving Activity Restrictions/Additional Instructions: Zofran as needed for nausea. Follow-up with your doctor as needed. Stop using marijuana. Disposition Disposition: Home, Self Care
[2023-01-12] MEDS: Famotidine 200 MG/20 ML MDV 20 MG in 0.9% Normal Saline (Pres. free 8 ML 300 MG IV (11:41)
[2023-01-12] MEDS: 0.9% Normal Saline 1,000 ML 999 ML IV (11:41)
[2023-01-12] MEDS: Ondansetron 4 MG/2 ML Vial IV (11:41)
[2023-01-12] MEDS: Capsaicin 0.025% 1 APPLIC Tube TOPICAL (11:42)
[2023-01-12 11:43] LABS: Anion Gap 6 (5-15); BUN 7 mg/dL (7-18); Calcium,Total 8.7 mg/dL (8.5-10.1); Chloride 105 mmol/L (98-107); EST Glomerular Filtration Rate 69 mL/min (>60); Est Glom Filt Rate - Afr Amer 84 mL/min (>60); Estimated Creatinine Clearance 77.01 ml/min; Glucose 208 mg/dL (74-106); Sodium Level 137 mmol/L (136-145)
[2023-01-12 13:20] VITALS: BP 143/101; PULSE 70; RESP 14; O2SAT 98
== END 2023-01-12 13:27 | disposition home or self-care (01) ==
PROVIDERS: Emergency Provider Emergency Medicine; Visit Provider Emergency Medicine
DX: F12.188 Cannabis abuse with other cannabis-induced disorder (principal); E11.9 Type 2 diabetes mellitus without complications; I10 Essential (primary) hypertension; J45.909 Unspecified asthma, uncomplicated; F17.210 Nicotine dependence, cigarettes, uncomplicated
CPT/HCPCS: 80048; 96365; 96375; 99283; J7030; J2405; J3490

== ENCOUNTER 2023-01-13 06:20 | Emergency (ER) | payer MEDICAID, SELFPAY ==
[2023-01-13 06:21] VITALS: BP 169/106; PULSE 99; RESP 18; TEMP 36.1; O2SAT 99; BMI 37.6
--- NOTE | 2023-01-13 07:12 | EDS_ITS ---
HPI History of Present Illness Chief Complaint: Nausea/Vomiting Informant: patient Onset/Context/Timing Onset: Days Context: Gradual Onset Timing: Intermittent Narrative Narrative: Patient presents with nearly 1 week history of nausea, vomiting, abdominal cramping. She states she is been told that she had hyperemesis from marijuana use. She is been seen in this ER multiple times as well as other area ERs. Patient states she tried Zofran ODT at 5:00 this morning but could not control her vomiting so presents via EMS. She has not noted a fever. [facility] Medical History Anxiety Asthma Constipation Depression Diabetes mellitus with diabetic polyneuropathy Hypertension Type 2 diabetes mellitus with foot ulcer Home Medications albuterol sulfate 90 mcg/actuation aerosol inhaler (Ventolin HFA) 1 inh inhalation Q4H SOB 04/06/22 [History Last Taken 06/24/22] metformin 500 mg tablet 1,000 mg PO BID DM 06/24/22 [History Last Taken 06/24/22] insulin glargine 100 unit/mL (3 mL) subcutaneous pen (Lantus Solostar U-100 Insulin) 15 unit subcut BID diabetes 08/12/22 [History Last Taken Unknown] cephalexin 500 mg capsule 500 mg PO TID 7 days #21 caps 11/19/22 [Rx Last Taken Unknown] sulfamethoxazole 800 mg-trimethoprim 160 mg tablet 1 tab PO BID 11/19/22 [History Last Taken Unknown] sulfamethoxazole 800 mg-trimethoprim 160 mg tablet (Bactrim DS) 1 tab PO BID 2 days #4 tabs 11/19/22 [Rx Last Taken Unknown] hyoscyamine sulfate 0.125 mg sublingual tablet (Levsin/SL) 0.125 mg PO TID PRN abdominal pain #10 tabs 01/07/23 [Rx Last Taken Unknown] ondansetron 4 mg disintegrating tablet 4 mg PO Q8H PRN PRN Nausea #10 tabs 01/07/23 [Rx Last Taken Unknown] dicyclomine 20 mg tablet 20 mg PO TID #14 tabs 01/09/23 [Rx Last Taken Unknown] promethazine 25 mg tablet 25 mg PO TID PRN nausea and vomiting #20 tabs 01/09/23 [Rx Last Taken Unknown] ondansetron 4 mg disintegrating tablet 4 mg PO Q6H PRN nausea and vomiting #7 tabs 01/12/23 [Rx Last Taken Unknown] trazodone 300 mg tablet 300 mg PO QHS 01/12/23 [History Last Taken Unknown] Allergy/AdvReac Type Severity Reaction Status Date / Time No Known Allergies Allergy Verified 01/13/23 06:21 Family History Other Bleeding disorder Cancer Diabetes Hypertension Surgical History Hx of foot surgery Social History Smoking Status: Current every day smoker tobacco type: cigarettes alcohol intake: never substance use type: does not use what type of physical activity do you participate in: none ROS ROS ED Constitutional Constitutional ED: Denies chills or fever(s) Eyes Eyes: Denies discharge from eye(s) ENT ENT ED: Denies discharge from eye(s), rhinorrhea or sore throat Cardiovascular Cardiovascular: Denies chest pain Respiratory/Chest Respiratory/Chest: Denies cough or dyspnea Gastrointestinal Gastrointestinal: Reports abdominal pain, nausea and vomiting Genitourinary Genitourinary ED: Denies dysuria Musculoskeletal Musculoskeletal: Denies back pain or extremity pain Integumentary Denies Abrasions or rash Neurologic Neurologic: Denies headache(s) or weakness Psychiatric Psychiatric: Denies anxiety or depression Allergic/Immunologic Allergic/Immunologic ED: Denies lip swelling or urticaria EXAM Physical Exam Const Vital Signs: 01/13/23 06:21 Temperature 97 F L Temperature Source Temporal Pulse Rate 99 Respiratory Rate 18 Blood Pressure 169/106 H Blood Pressure Mean 127 Pulse Ox 99 Positive well nourished and well developed General Appearance ED: well developed HEENT Reports normocephalic and head/scalp atraumatic Eyes PERRL and EOMs intact bilaterally Neck supple Chest Wall inspection of chest normal and palpation of chest normal Resp normal respiratory effort and clear to auscultation bilaterally Cardio regular rate and regular rhythm GI GI Narrative: Abdomen soft with mild diffuse tenderness. No guarding or rebound. Hypoactive but present bowel sounds are noted. Palpation: soft Extremity normal to inspection Neuro oriented x3 and no sensory deficits noted Sensorium / Orientation: alert Motor Exam: strength 5/5 throughout Psych mental status grossly normal Skin no rashes or lesions noted MDM MDM MDM Narrative Medical decision making narrative: Patient was in the ER twice yesterday. Those visit notes are reviewed. Patient is ordered a liter of IV fluids along with IM Phenergan and IM Bentyl. Chemistry studies obtained to evaluate for electrolyte status and her blood sugar given her diabetes history. Urinalysis and test obtained. Lab Data Attestation: I reviewed the patient's lab results. Labs: Laboratory Results - last 24 hr 01/13/23 06:40 Sodium 137 Potassium 3.2 L Chloride 107 Carbon Dioxide 23.0 Anion Gap 7 BUN 8 Creatinine 1.05 H Estim Creat Clear Calc 73.34 Est GFR (MDRD) Af Amer 79 Est GFR (MDRD) Non-Af 65 BUN/Creatinine Ratio 7.6 L Glucose 235 H Calcium 8.5 Serum , Qual NEGATIVE Urine Color Yellow Urine Clarity Sl. Cloudy Urine pH 6.0 Ur Specific [place] 1.020 Urine Protein 30 H Urine Glucose (UA) 250 H Urine Ketones 15 H Urine Occult Blood 10 H Urine Nitrite Negative Urine Bilirubin Negative Urine Urobilinogen 1 H Ur Leukocyte Esterase 500 H Urine RBC 0-5 SEEN Urine WBC 25-50 SEEN Ur Squamous Epith Cells 5-10 SEEN Urine Bacteria 1+ Urine Mucus 1+ Treatment and Re-Evaluation :: Chemistry studies reveal slightly low potassium at 3.2. This is actually imp roved when compared to yesterday's values. Creatinine 1.05. Urinalysis reveals glucose with 15 ketones. Nitrites are negative. Sample is not clean with 5-10 epithelial cells noted. On repeat evaluation patient has not had further vomiting in the emergency room. She is able to get up and go to the bathroom. She complains of continued abdominal pain, however I explained to her that with 6 days of vomiting there is nothing I can give her to make her completely pain-free. She voices understanding. She has prescriptions for Levsin, Phenergan, and Zofran at home. Addendum: As nursing staff went to discharge the patient she began retching again. She was given 2 mg of IV Haldol. At this time she is sleeping comfortably. When she awakens she will be discharged home to continue her medic ation regimen. Discharge Plan Triage Chief Complaint: Nausea/Vomiting ED Provider: Deann Guerrero Dx/Rx/DC Orders Clinical Impression: Nausea and vomiting Instructions: ED Vomiting (Adult) Prescriptions: No Action albuterol sulfate [Ventolin HFA] 90 mcg/actuation HFA aerosol inhaler 1 inh INHALATION Q4H metformin 500 mg tablet 1,000 mg PO BID insulin glargine [Lantus Solostar U-100 Insulin] 100 unit/mL (3 mL) insulin pen 15 unit SUBCUT BID Patient Comments: inject 10 units subcutaneous twice daily sulfamethoxazole-trimethoprim 800-160 mg tablet 1 tab PO BID sulfamethoxazole-trimethoprim [Bactrim DS] 800-160 mg tablet 1 tab PO BID 2 Days Qty: 4 0RF cephalexin 500 mg capsule 500 mg PO TID 7 Days Qty: 21 0RF hyoscyamine sulfate [Levsin/SL] 0.125 mg tablet, sublingual 0.125 mg PO TID PRN (Reason: abdominal pain) Qty: 10 0RF ondansetron [ondansetron] 4 mg tablet,disintegrating 4 mg PO Q8H PRN PRN (Reason: Nausea) Qty: 10 0RF promethazine 25 mg tablet 25 mg PO TID PRN (Reason: nausea and vomiting) Qty: 20 0RF dicyclomine 20 mg tablet 20 mg PO TID Qty: 14 0RF trazodone 300 mg tablet 300 mg PO QHS Patient Comments: take 1 tablets 30 minutes before bedtime ondansetron 4 mg tablet,disintegrating 4 mg PO Q6H PRN (Reason: nausea and vomiting) Qty: 7 0RF Primary Care Provider: Sophy Lam Referrals: [facility] Sophy Santiago [Primary Care Provider] - As Needed Disposition Disposition: Home, Self Care
[2023-01-13 07:18] LABS: Color, Urine Yellow (Yellow); Glucose, Dipstick 250 mg/dl (Normal); Ketone-Dipstick 15 mg/dl (Negative); Leukocyte Esterase-Dipstick 500 /ul (Negative); Nitrite-Dipstick Negative (Negative); Occult Blood-Urine 10 /ul (Negative); Protein-Dipstick 30 mg/dl (Negative); Urine Bilirubin Dipstick Negative (Negative); Urine Clarity Sl. Cloudy (Clear); Urine Urobilinogen 1 mg/dl (Normal)
[2023-01-13 07:29] LABS: Bacteria 1+ /hpf (None Seen); Mucous, Urine 1+ /hpf (<or=2+); Red Blood Cells-Urine 0-5 SEEN /hpf (0-5); Squamous Epithelial Cells - UA 5-10 SEEN /hpf (5-10); White Blood Cells 25-50 SEEN /hpf (0-5)
[2023-01-13 07:30] LABS: Anion Gap 7 (5-15); BUN 8 mg/dL (7-18); BUN/Creat Ratio 7.6 RATIO (10-20); Calcium,Total 8.5 mg/dL (8.5-10.1); Chloride 107 mmol/L (98-107); Creatinine, Serum 1.05 mg/dL (0.55-1.02); EST Glomerular Filtration Rate 65 mL/min (>60); Est Glom Filt Rate - Afr Amer 79 mL/min (>60); Estimated Creatinine Clearance 73.34 ml/min; Glucose 235 mg/dL (74-106); Potassium 3.2 mmol/L (3.5-5.1); Sodium Level 137 mmol/L (136-145)
[2023-01-13] MEDS: Dicyclomine 20 MG/2 ML Vial IM (07:38)
[2023-01-13] MEDS: 0.9% Normal Saline 1,000 ML 1000 ML IV (07:38)
[2023-01-13] MEDS: proMETHazine 25 MG/ML Syringe 12.5 MG IM (07:39)
[2023-01-13 07:45] LABS: Internal QC Validated? YES +Cl - CLEAR BKGD; Pregnancy, Serum, hCG Quali. NEGATIVE Negative
[2023-01-13 08:20] VITALS: RESP 14
[2023-01-13] MEDS: Haloperidol Lactate 5 MG/ML Vial 2 MG IV (09:01)
[2023-01-13 10:20] VITALS: RESP 16
== END 2023-01-13 10:38 | disposition home or self-care (01) ==
PROVIDERS: Emergency Provider Emergency Medicine; Visit Provider Emergency Medicine
DX: R11.2 Nausea with vomiting, unspecified (principal); E11.42 Type 2 diabetes mellitus with diabetic polyneuropathy; I10 Essential (primary) hypertension; J45.909 Unspecified asthma, uncomplicated; F17.210 Nicotine dependence, cigarettes, uncomplicated
CPT/HCPCS: 80048; 81001; 84703; 96361; 96372; 96374; 99285; J7030; A4216

== ENCOUNTER 2023-01-14 11:39 | Observation (INO) | payer MEDICAID, SELFPAY ==
[2023-01-14 11:39] VITALS: BP 157/97; PULSE 98; RESP 18; TEMP 36.7; O2SAT 99; BMI 37.1
--- NOTE | 2023-01-14 12:03 | CT_ITS ---
STUDY: CT ABDOMEN AND PELVIS WITH CONTRAST REASON FOR EXAM: Female, 32 years old. Painful nausea and vomiting. History of diabetes. RADIATION DOSAGE (If Supplied By Facility): CTDIvol = ( 32.52 ) mGy, DLP = ( 1193.79 ) mGycm TECHNIQUE: Transaxial images were obtained from the dome of the diaphragm to the symphysis pubis without oral contrast. IV 100mL Isovue-300 was administered. Sagittal and coronal images were reconstructed. Individualized dose optimization techniques were used for this CT. COMPARISON: Comparison is made with prior study dated August 12, 2022. FINDINGS: The visualized lung bases are unremarkable. The visualized portions of the heart are within normal limits. Normal liver. Normal gallbladder and extrahepatic biliary system. Normal spleen. Normal pancreas. Normal bilateral adrenal glands. Normal right kidney. Normal left kidney. There is a small hiatal hernia. Normal small intestine. Normal colon. The appendix is visualized and appears normal. Normal abdominal aorta. Normal inferior vena cava. Normal retroperitoneum. Normal urinary bladder. 2.1 cm left ovarian cyst. Normal abdominal wall. Normal osseous structures. CT/Abdomen/Pelvis W IV Cont ONLY IMPRESSION: 2.1 cm left ovarian cyst. Electronically Signed: Bernard Sadler MD at 13:57 EDT ,
--- NOTE | 2023-01-14 12:04 | EDS_ITS ---
HPI History of Present Illness Chief Complaint: Nausea/Vomiting Narrative Narrative: Patient represents with nausea vomiting abdominal cramping. Patient's had multiple visits here for the same. She initially got relief from Zofran and that stopped working. It sounds like she is also been prescribed Phenergan. She has been on Bentyl. I do not see Reglan. She denies any known history of gastroparesis but she has been diagnosed with diabetic neuropathy in the past. She was smoking marijuana but stopped about a week ago. She states she was not a heavy smoker prior to that. She does have a history of the same issue about a year ago but states that was due to constipation. She has not moved her bowels in almost a week but she also has not been eating. She is still taking some of her insulin and diabetic meds. She has not had fevers. She has allover abdominal soreness. She vomited a little blood last Wednesday but none since. Nothing seems to be helping. The last time she used the capsaicin cream was last evening. The last time she used Zofran was last evening. It sounds like she did try a Phenergan suppository right before she came in but prior to that she had not had any for a day or so. [facility] Medical History Anxiety Asthma Constipation Depression Diabetes mellitus with diabetic polyneuropathy Hypertension Type 2 diabetes mellitus with foot ulcer Home Medications albuterol sulfate 90 mcg/actuation aerosol inhaler (Ventolin HFA) 1 inh inhalation Q4H SOB 04/06/22 [History Last Taken 06/24/22] metformin 500 mg tablet 1,000 mg PO BID DM 06/24/22 [History Last Taken 06/24/22] insulin glargine 100 unit/mL (3 mL) subcutaneous pen (Lantus Solostar U-100 Insulin) 15 unit subcut BID diabetes 08/12/22 [History Last Taken Unknown] cephalexin 500 mg capsule 500 mg PO TID 7 days #21 caps 11/19/22 [Rx Last Taken Unknown] sulfamethoxazole 800 mg-trimethoprim 160 mg tablet 1 tab PO BID 11/19/22 [History Last Taken Unknown] sulfamethoxazole 800 mg-trimethoprim 160 mg tablet (Bactrim DS) 1 tab PO BID 2 days #4 tabs 11/19/22 [Rx Last Taken Unknown] hyoscyamine sulfate 0.125 mg sublingual tablet (Levsin/SL) 0.125 mg PO TID PRN abdominal pain #10 tabs 01/07/23 [Rx Last Taken Unknown] ondansetron 4 mg disintegrating tablet 4 mg PO Q8H PRN PRN Nausea #10 tabs 01/07/23 [Rx Last Taken Unknown] dicyclomine 20 mg tablet 20 mg PO TID #14 tabs 01/09/23 [Rx Last Taken Unknown] promethazine 25 mg tablet 25 mg PO TID PRN nausea and vomiting #20 tabs 01/09/23 [Rx Last Taken Unknown] ondansetron 4 mg disintegrating tablet 4 mg PO Q6H PRN nausea and vomiting #7 tabs 01/12/23 [Rx Last Taken Unknown] trazodone 300 mg tablet 300 mg PO QHS 01/12/23 [History Last Taken Unknown] Allergy/AdvReac Type Severity Reaction Status Date / Time No Known Allergies Allergy Verified 01/13/23 06:21 Family History Other Bleeding disorder Cancer Diabetes Hypertension Surgical History Hx of foot surgery Social History Smoking Status: Current every day smoker tobacco type: cigarettes alcohol intake: never substance use type: does not use what type of physical activity do you participate in: none ROS ROS ED ROS Narrative A complete review of systems was performed and is negative except as documented in the history of present illness. Some specific details below. Constitutional: No recent fevers or chills. EYE: No visual complaints or pain. No change in eye color ENT: No difficulty swallowing. No swelling. No pain. She does admit to acid taste but she has been vomiting frequently. CV: No chest pain or palpitations. Respiratory: No dyspnea. No hemoptysis. No difficulty taking breaths. GI: Please see history of present illness. : No frequency dysuria or hematuria. Last menstrual cycle was about 2 weeks ago and normal timing no discharge. Musculoskeletal: No recent trauma. No pains. Skin: No rash. Nondiaphoretic. Neuro: No weakness or numbness. Endocrine: No polyuria or polydipsia. EXAM Physical Exam Narrative Exam Narrative: CONSTITUTIONAL: Patient is nontoxic in appearance. She is holding an emesis bag. She occasionally will have some retching but no actual productivity of liquid or material at this time. HEENT: No notable trauma. Mucous membranes do still look moist. No sinus tenderness. No indication of pain with swallowing. EYES: No conjunctival injection. No icterus. CARDIOVASCULAR: Regular rate. Regular rhythm. No notable murmur. No JVD. RESPIRATORY: No respiratory distress. Breathing is unlabored. No wheezes. No rhonchi. No rales. No pain with a deep breath. GASTROINTESTINAL: Not distended. Bowel sounds are normal. When I first touched her abdomen she moves. But then I am able to firmly press in most quadrants and I am really not getting any notable tenderness. I feel no mass. Overall relatively benign abdomen. GENITOURINARY: No tenderness over the bladder. No CVA tenderness. MUSCULOSKELETAL: Atraumatic. No peripheral edema. No cord. No tenderness along the deep venous system. No asymmetry. NEUROLOGICAL: Patient is alert and appropriate. No focal deficit noted. SKIN: No noted rashes. No diaphoresis. PSYCHIATRIC: Patient is calm. Mood is appropriate. Const Vital Signs: 01/14/23 11:39 01/14/23 13:35 Temperature 98.1 F Temperature Source Temporal Pulse Rate 98 78 Respiratory Rate 18 16 Blood Pressure 157/97 H 168/111 H Blood Pressure Mean 117 130 Pulse Ox 99 98 Oxygen Delivery Method Room Air Room Air MDM MDM MDM Narrative Medical decision making narrative: Patient CBC shows no acute abnormalities. White count hemoglobin and platelets are normal. Patient's electrolytes does show a progressively worsening and lowering of her potassium is now down to 2.8. This is replaced with some IV potassium as she really cannot take oral. She also shows a progressively increasing creatinine at 1.2. Glucose is a bit high at 241 but her bicarb and gap are normal. I do not think this is DKA. Patient's lactate is mildly elevated. But this is likely due to to some dehydr ation and being on metformin. This should correct with IV fluids. Liver function test showed no acute process. Serum is negative. My independent interpretation of her CT scan of the abdomen pelvis with IV contrast shows no acute process. I do not see signs of constipation obstruction free air ileus or mass. Final reading was negative other than a 2.1 cm left ovarian cyst. But this does not justify her symptoms. Patient has been seen here multiple times recently. She has been tried on dicyclomine, Zofran, Phenergan as an outpatient. She has also been using capsaicin cream. She has progressively rising creatinine and progressively decreasing potassium. I think at this point we have failed outpatient therapy. She has intractable nausea and vomiting. I do not think we can get her potassium up as an outpatient as she is really not going to tolerate that orally. I discussed the case with hospitalist and we will keep her in the hospital. Although this patient has never been diagnosed with gastroparesis this may be a part of her illness as she does have a history of some diabetic neuropathy. Lab Data Attestation: I reviewed the patient's lab results. Labs: Laboratory Results - last 24 hr 01/14/23 01/14/23 12:20 13:32 WBC 10.4 RBC 4.70 Hgb 12.4 Hct 37.9 MCV 80.6 L MCH 26.4 L MCHC 32.7 RDW Std Deviation 39.6 RDW Coeff of John 13.7 Plt Count 409 MPV 9.3 Immature Gran % (Auto) 0.800 Neut % (Auto) 59.7 Lymph % (Auto) 31.2 Keith % (Auto) 7.7 Eos % (Auto) 0.2 Baso % (Auto) 0.4 Absolute Neuts (auto) 6.2 Absolute Lymphs (auto) 3.24 Nucleated RBC % 0 Sodium 135 L Potassium 2.8 L Chloride 101 Carbon Dioxide 25.0 Anion Gap 9 BUN 8 Creatinine 1.20 H Estim Creat Clear Calc 64.17 Est GFR (MDRD) Af Amer 67 Est GFR (MDRD) Non-Af 56 L BUN/Creatinine Ratio 6.7 L Glucose 241 H Lactic Acid 2.1 H* Calcium 9.3 Total Bilirubin 0.60 AST 12 L ALT 17 Alkaline Phosphatase 63 Total Protein 8.1 Albumin 3.4 Globulin 4.7 H Albumin/Globulin Ratio 0.7 L Serum , Qual NEGATIVE Urine Color Yellow Urine Clarity Clear Urine pH 8.0 Ur Specific [place] 1.015 Urine Protein 15 H Urine Glucose (UA) 250 H Urine Ketones 5 H Urine Occult Blood 10 H Urine Nitrite Negative Urine Bilirubin Negative Urine Urobilinogen Normal Ur Leukocyte Esterase 25 H Urine RBC 0-5 SEEN Urine WBC 0-5 SEEN Ur Squamous Epith Cells 0-5 SEEN Urine Bacteria RARE Urine Mucus 0 SEEN Radiography Diagnostic Testing: Clinical Impression(s) from Imaging Studies Abdomen/Pelvis CT 01/14/23 12:03 IMPRESSION: 2.1 cm left ovarian cyst. Electronically Signed: Bernard Sadler MD at 13:57 EDT , Discharge Plan Dx/Rx/DC Orders Clinical Impression: Failure of outpatient treatment, Elevated serum creatinine, Intractable nausea and vomiting, Acute hypokalemia Disposition Disposition: Acute Care Hospital [facility]
[2023-01-14] MEDS: 0.9% Normal Saline 1,000 ML 1000 ML IV (12:24)
[2023-01-14] MEDS: DiphenhydrAMINE 50 MG/ML Syringe 25 MG IV (12:25)
[2023-01-14] MEDS: Ondansetron 4 MG/2 ML Vial IV ×2 (12:25→20:06)
[2023-01-14] MEDS: Metoclopramide 10 MG/2 ML Vial 5 MG IV (12:25)
[2023-01-14 12:44] LABS: Absolute Lymphocyte Count 3.24 X10^3/uL (0.83-4.51); Absolute Neutrophil Count 6.2 X10^3/uL (2.0-7.7); Basophil# 0.04 X10^3/uL; Basophil% 0.4 % (0-1); Eosinophil# 0.02 X10^3/uL; Eosinophils% 0.2 % (0-5); Hematocrit 37.9 % (37-47); Hemoglobin 12.4 g/dL (12.0-15.0); Lymphocyte # 3.24 X10^3/ul (0.83-4.51); Lymphocyte % 31.2 % (19-41); Mean Corp Hgb Conc 32.7 g/dL (32-36); Mean Corpuscular Hgb 26.4 pg (27.0-32.0); Mean Corpuscular Volume 80.6 fL (81-99); Mean Platelet Vol. 9.3 fl (6.2-12.0); Monocyte% 7.7 % (0-10); NRBC Flagged by Analyzer 0 % (0-5); Neutrophil # 6.22 X10^3/uL (2.7-7.7); Neutrophil % 59.7 % (47-70); Platelet Count 409 K/mm3 (150-450); RBC Distribution Width CV 13.7 % (11.6-14.6); RBC Distribution Width SD 39.6 fl (35.1-43.9); White Blood Count 10.4 K/mm3 (4.4-11.0)
[2023-01-14 13:00] LABS: ALB/GLOB Ratio 0.7 RATIO (0.9-2.4); AST(SGOT) 12 U/L (15-37); Alanine Aminotransfer ALT/SGPT 17 U/L (13-56); Albumin, Serum 3.4 g/dL (3.2-5.0); Alkaline Phosphatase 63 U/L (45-117); Anion Gap 9 (5-15); BUN 8 mg/dL (7-18); BUN/Creat Ratio 6.7 RATIO (10-20); Calcium,Total 9.3 mg/dL (8.5-10.1); Chloride 101 mmol/L (98-107); EST Glomerular Filtration Rate 56 mL/min (>60); Est Glom Filt Rate - Afr Amer 67 mL/min (>60); Estimated Creatinine Clearance 64.17 ml/min; Globulin 4.7 g/dL (2.2-4.2); Glucose 241 mg/dL (74-106); Potassium 2.8 mmol/L (3.5-5.1); Protein, Total 8.1 g/dL (6.4-8.2); Sodium Level 135 mmol/L (136-145)
[2023-01-14 13:12] LABS: Lactic Acid 2.1 mmol/L (0.4-1.9)
[2023-01-14 13:29] LABS: Internal QC Validated? YES +Cl - CLEAR BKGD; Pregnancy, Serum, hCG Quali. NEGATIVE Negative
[2023-01-14 13:35] VITALS: BP 168/111; PULSE 78; RESP 16; O2SAT 98
[2023-01-14 13:50] LABS: Mucous, Urine 0 SEEN /hpf (<or=2+)
[2023-01-14 13:55] LABS: Color, Urine Yellow (Yellow); Glucose, Dipstick 250 mg/dl (Normal); Ketone-Dipstick 5 mg/dl (Negative); Leukocyte Esterase-Dipstick 25 /ul (Negative); Nitrite-Dipstick Negative (Negative); Occult Blood-Urine 10 /ul (Negative); Protein-Dipstick 15 mg/dl (Negative); Specific Gravity, Urine 1.015 (1.002-1.030); Urine Bilirubin Dipstick Negative (Negative); Urine Clarity Clear (Clear); Urine Urobilinogen Normal (Normal)
[2023-01-14 14:12] LABS: Bacteria RARE /hpf (None Seen); Red Blood Cells-Urine 0-5 SEEN /hpf (0-5); Squamous Epithelial Cells - UA 0-5 SEEN /hpf (5-10); White Blood Cells 0-5 SEEN /hpf (0-5)
--- NOTE | 2023-01-14 14:24 | ED.RN ---
Patient ambulatory to bathroom, gait steady. Requesting ice from TITO Mcneal instructed patient to refrain until nausea is under control. Patient returned to bed.
[2023-01-14] MEDS: proMETHazine 25 MG/ML Syringe 12.5 MG IM (14:35)
--- NOTE | 2023-01-14 15:21 | NURSING ---
DR DHARA SIMON
[2023-01-14] MEDS: Potassium Chloride 10mEq/100mL 10 MEQ/100 ML IV.SOLN. 100 MEQ IV BOLUS ×2 (15:27→16:50)
--- NOTE | 2023-01-14 15:37 | NURSING ---
MED SURG OBS JULES INTRACTABLE NAUSEA,VOMITING, HYPOKALEMIA, CREATININE ELEVATION
[2023-01-14 15:45] VITALS: BP 168/117; PULSE 79; RESP 16; RESP 23; TEMP 36.2; O2SAT 100
--- NOTE | 2023-01-14 15:52 | PCM.HP.STD ---
HPI - General General Date of Admission: 01/14/23 Date of Service: 01/14/23 Chief Complaint: Nausea HPI Narrative SHOLA PATTON, is a 32-year-old female with history of type 2 diabetes mellitus, hypertension, depression who presents to [facility] 01/14/2023 with 1 week of nausea, vomiting, difficulty tolerating p.o. Was initially thought that maybe she had cannabis hyperemesis syndrome as this is happened to her in the past reportedly but she reported she only smoked once a week ago and has not since. In the ED this visit she had presented to the ED several times over several days with the same symptoms with no underlying etiology identified and due to creatinine trending up, potassium low and intractable symptoms hospitalist consulted for admission. CT abdomen in ED overall unremarkable with only small hiatal hernia, normal urinary bladder and a 2.1 cm left ovarian cyst with no other acute abnormalities. Patient evaluated at bedside and reported that she has been nauseous and unable to keep anything down for a week and she does not remember the last time she had a bowel movement and notes that usually if she has not had a bowel movement in a while she will get symptoms like this. Has some general abdominal pain and cannot localize it at all. Reports urinating regularly. Denies any other specific complaints [facility] Medical History Anxiety Asthma Constipation Depression Diabetes mellitus with diabetic polyneuropathy Hypertension Type 2 diabetes mellitus with foot ulcer Home Medications albuterol sulfate 90 mcg/actuation aerosol inhaler (Ventolin HFA) 1 inh inhalation Q4H SOB 04/06/22 [History Last Taken 06/24/22] metformin 500 mg tablet 1,000 mg PO BID DM 06/24/22 [History Last Taken 06/24/22] insulin glargine 100 unit/mL (3 mL) subcutaneous pen (Lantus Solostar U-100 Insulin) 15 unit subcut BID diabetes 08/12/22 [History Last Taken Unknown] cephalexin 500 mg capsule 500 mg PO TID 7 days #21 caps 11/19/22 [Rx Last Taken Unknown] sulfamethoxazole 800 mg-trimethoprim 160 mg tablet 1 tab PO BID 11/19/22 [History Last Taken Unknown] sulfamethoxazole 800 mg-trimethoprim 160 mg tablet (Bactrim DS) 1 tab PO BID 2 days #4 tabs 11/19/22 [Rx Last Taken Unknown] hyoscyamine sulfate 0.125 mg sublingual tablet (Levsin/SL) 0.125 mg PO TID PRN abdominal pain #10 tabs 01/07/23 [Rx Last Taken Unknown] ondansetron 4 mg disintegrating tablet 4 mg PO Q8H PRN PRN Nausea #10 tabs 01/07/23 [Rx Last Taken Unknown] dicyclomine 20 mg tablet 20 mg PO TID #14 tabs 01/09/23 [Rx Last Taken Unknown] promethazine 25 mg tablet 25 mg PO TID PRN nausea and vomiting #20 tabs 01/09/23 [Rx Last Taken Unknown] ondansetron 4 mg disintegrating tablet 4 mg PO Q6H PRN nausea and vomiting #7 tabs 01/12/23 [Rx Last Taken Unknown] trazodone 300 mg tablet 300 mg PO QHS 01/12/23 [History Last Taken Unknown] Allergy/AdvReac Type Severity Reaction Status Date / Time No Known Allergies Allergy Verified 01/13/23 06:21 Family History Other Bleeding disorder Cancer Diabetes Hypertension Surgical History Hx of foot surgery Social History Smoking Status: Current every day smoker tobacco type: cigarettes alcohol intake: never substance use type: does not use what type of physical activity do you participate in: none ROS ROS Narrative General: Denies fever/chills HENT: Denies headache, denies stuffy nose, denies sore throat EYES: Denies changes in vision Resp: Denies cough, denies shortness of breath Cardiac: Denies chest pain GI: No BM in a couple weeks, generalized abdominal pain, nausea : Denies changes in urination Extremity: Denies swelling MSK: Denies weakness Neuro: Denies any numbness/tingling Heme: Denies any bleeding or bruising Skin: Denies rashes Psychiatric: Patient distressed over nausea Vital Signs Vital Signs Vital Signs: 01/14/23 11:39 01/14/23 13:35 01/14/23 15:45 Temperature 98.1 F Temperature Source Temporal Pulse Rate 98 78 79 Respiratory Rate 18 16 23 H Blood Pressure 157/97 H 168/111 H 168/117 H Blood Pressure Mean 117 130 134 Pulse Ox 99 98 100 Oxygen Delivery Method Room Air Room Air Room Air 01/14/23 15:45 Temperature 97.2 F L Temperature Source Oral Pulse Rate 79 Respiratory Rate 16 Blood Pressure 168/117 H Blood Pressure Mean 134 Pulse Ox 100 Oxygen Delivery Method Room Air Weight Weight: 104.326 kg Body Mass Index (BMI) 37.1 Physical Exam Narrative General: Alert, oriented, appears acutely distressed HEENT: Atraumatic, normocephalic Eyes: Anicteric, normal conjunctiva, extraocular movements grossly intact Neck: Supple Respiratory: Clear to auscultation bilaterally, normal respiratory effort Cardiovascular: Regular rate and rhythm GI: Soft, nondistended, patient reports pain on palpation but no rebound, guarding, rigidity, no localizing factors Extremities: No edema Musculoskeletal: Moving all extremities Neuro: No overt focal neurological deficits Skin: No rashes appreciated Psych: Tearful Results Lab / Micro Data 01/14/23 12:20 01/14/23 12:20 Labs: Laboratory Results - last 24 hr 01/14/23 12:20: WBC 10.4, RBC 4.70, Hgb 12.4, Hct 37.9, MCV 80.6 L, MCH 26.4 L, MCHC 32.7, RDW Std Deviation 39.6, RDW Coeff of John 13.7, Plt Count 409, MPV 9.3, Immature Gran % (Auto) 0.800, Neut % (Auto) 59.7, Lymph % (Auto) 31.2, [place] % (Auto) 7.7, Eos % (Auto) 0.2, Baso % (Auto) 0.4, Absolute Neuts (auto) 6.2, Absolute Lymphs (auto) 3.24, Nucleated RBC % 0, Sodium 135 L, Potassium 2.8 L, Chloride 101, Carbon Dioxide 25.0, Anion Gap 9, BUN 8, Creatinine 1.20 H, Estim Creat Clear Calc 64.17, Est GFR (MDRD) Af Amer 67, Est GFR (MDRD) Non-Af 56 L, BUN/Creatinine Ratio 6.7 L, Glucose 241 H, Lactic Acid 2.1 H*, Calcium 9.3, Total Bilirubin 0.60, AST 12 L, ALT 17, Alkaline Phosphatase 63, Total Protein 8.1, Albumin 3.4, Globulin 4.7 H, Albumin/Globulin Ratio 0.7 L, Serum , Qual NEGATIVE 01/14/23 13:32: Urine Color Yellow, Urine Clarity Clear, Urine pH 8.0, Ur Specific [place] 1.015, Urine Protein 15 H, Urine Glucose (UA) 250 H, Urine Ketones 5 H, Urine Occult Blood 10 H, Urine Nitrite Negative, Urine Bilirubin Negative, Urine Urobilinogen Normal, Ur Leukocyte Esterase 25 H, Urine RBC 0-5 SEEN, Urine WBC 0-5 SEEN, Ur Squamous Epith Cells 0-5 SEEN, Urine Bacteria RARE, Urine Mucus 0 SEEN Radiology Impression Abdomen/Pelvis CT 01/14/23 12:03 IMPRESSION: 2.1 cm left ovarian cyst. Electronically Signed: Bernard Sadler MD at 13:57 EDT Reading Location ID and State: [address] [place] [address] , Service support , Assessment & Plan Assessment/Plan (1) Intractable nausea and vomiting: (2) Elevated serum creatinine: (3) Acute hypokalemia: (4) Failure of outpatient treatment: PLAN: Plan #Intractable nausea vomiting associated with constipation -CT abdomen in ED largely unrevealing -Labs do not point to specific cause -Given her significant constipation with no bowel movement in a couple weeks with history of nausea and vomiting when this happens to her we will add suppository as she does not think she can take any oral medications to help with bowel movements -Has history of cannabis use, will obtain UA though denies use for 1 week -i's and O's -Daily weights -IVF -Clear liquids -If no improvement after bowel movement may need evaluation for gastroparesis or evaluated by GI for potential endoscopies -We will start PPI -Nausea control #CKDIIIb -Waxes and wanes, appears to be close to baseline, will receive IVF #Hypokalemia -Replace #Type 2 diabetes mellitus, on insulin, uncontrolled -A1c 12.1 in November, uncontrolled -Glucose checks and sliding scale insulin -Continue long-acting #Left ovarian cyst -2.1 cm left ovarian cyst seen on CT -Last CT demonstrated the left ovarian cyst at roughly 1.8 x 2 cm and a smaller cyst in the right ovary #DVT ppx: Lovenox subcu Lexus Villatoro MD Time spent in the patient's overall evaluation,decision-making process, review of diagnostic data, adjustment of management, discussion with other providers, nursing nursing and ancillary staff involved in patient's care documentation, 58 minutes Charges/Coding Visit Charges Inpatient E&M: 73974 Init Hosp L2
[2023-01-14 16:21] VITALS: BMI 37.0
[2023-01-14 16:39] LABS: Reflex Lactate? Y
[2023-01-14 16:42] VITALS: BP 158/93; PULSE 68; RESP 16; TEMP 36.9; O2SAT 100
[2023-01-14] MEDS: Bisacodyl 10 MG Suppository RC (17:25)
[2023-01-14] MEDS: Lactated Ringers 1,000 ML 100 ML IV (17:30)
[2023-01-14 17:31] LABS: Lactic Acid 1.3 mmol/L (0.4-1.9)
[2023-01-14] MEDS: Insulin Lispro 100 UNIT/ML INSULN.PEN SC (17:40)
[2023-01-14 17:53] LABS: Bedside Glucose 189 mg/dL (74-106)
[2023-01-14 18:47] LABS: Amphetamine Urine VISTA NEGATIVE (<1000 ng/mL); Barbiturate Urine VISTA NEGATIVE (< 200 ng/mL); Benzodiazepine Urine VISTA NEGATIVE (< 200 ng/mL); Cocaine Urine VISTA NEGATIVE (< 300 ng/mL); Ecstacy Urine VISTA NEGATIVE (< 500 ng/mL); Methadone Urine VISTA NEGATIVE (< 300 ng/mL); PCP Urine VISTA NEGATIVE (< 25 ng/mL); THC Urine VISTA POSITIVE (< 50 ng/mL); Vista UDS pH Range 6
[2023-01-14] MEDS: 0.9% Saline Lock 10 ML Syringe IV ×2 (20:06→22:46)
[2023-01-14] MEDS: Capsaicin 0.025% 1 APPLIC Tube TOPICAL (20:18)
[2023-01-14 20:31] VITALS: BP 169/99; PULSE 69; RESP 18; TEMP 36.7; O2SAT 100
[2023-01-14 22:00] VITALS: BP 128/78; PULSE 68; RESP 16; TEMP 36.7; O2SAT 100
[2023-01-14] MEDS: Insulin Glargine-YFGN 100 UNIT/ML Pen 10 UNIT SC (22:06)
[2023-01-14 22:38] LABS: Bedside Glucose 174 mg/dL (74-106)
[2023-01-14] MEDS: proCHLORPERazine 10 MG/2 ML Vial 5 MG IV (22:46)
[2023-01-15] MEDS: Ondansetron 4 MG/2 ML Vial IV (03:46)
[2023-01-15] MEDS: Lactated Ringers 1,000 ML 100 ML IV (03:46)
[2023-01-15] MEDS: 0.9% Saline Lock 10 ML Syringe IV (03:46)
[2023-01-15 04:25] VITALS: BP 155/76; PULSE 82; RESP 18; TEMP 36.6; O2SAT 100
[2023-01-15] MEDS: Insulin Lispro 100 UNIT/ML INSULN.PEN SC ×2 (06:13→11:54)
[2023-01-15 06:34] LABS: Bedside Glucose 182 mg/dL (74-106)
[2023-01-15 06:49] LABS: Absolute Neutrophil Count 5.3 X10^3/uL (2.0-7.7); Basophil# 0.03 X10^3/uL; Basophil% 0.3 % (0-1); Eosinophil# 0.03 X10^3/uL; Eosinophils% 0.3 % (0-5); Hematocrit 35.6 % (37-47); Hemoglobin 11.7 g/dL (12.0-15.0); Lymphocyte % 34.2 % (19-41); Mean Corp Hgb Conc 32.9 g/dL (32-36); Mean Corpuscular Hgb 26.4 pg (27.0-32.0); Mean Corpuscular Volume 80.4 fL (81-99); Mean Platelet Vol. 9.3 fl (6.2-12.0); Monocyte# 0.77 X10^3/uL; Monocyte% 8.2 % (0-10); NRBC Flagged by Analyzer 0 % (0-5); Neutrophil # 5.28 X10^3/uL (2.7-7.7); Neutrophil % 56.4 % (47-70); Platelet Count 361 K/mm3 (150-450); RBC Distribution Width CV 13.8 % (11.6-14.6); RBC Distribution Width SD 40.1 fl (35.1-43.9); Red Blood Count 4.43 M/mm3 (4.2-5.4); White Blood Count 9.4 K/mm3 (4.4-11.0)
--- NOTE | 2023-01-15 07:34 | PN.HOSP_ITS ---
Reason for Visit Reason for Visit: Diagnoses Hypokalemia (01/14/23) Nausea with vomiting, unspecified (01/14/23) Other specified abnormal findings of blood chemistry (01/14/23) Other specified health status (01/14/23) Objective Data Objective Data Vital Signs: Vital Signs Temp Pulse Resp BP Pulse Ox O2 Del Method 97.8 F 82 18 155/76 H 100 Room Air 01/15/23 04:25 01/15/23 04:25 01/15/23 04:25 01/15/23 04:25 01/15/23 04:25 01/15/23 04:25 Oxygen Delivery Method Room Air Weight: 104 kg Body Mass Index (BMI) 37.0 Intake & Output: Intake and Output for Last 24 Hours 01/13/23 01/14/23 01/15/23 23:59 23:59 23:59 Intake Total 1571.67 / 1571.67 1071.67 / 1071.67 Balance 1571.67 / 1571.67 1071.67 / 1071.67 Lab / Micro Data 01/15/23 05:40 01/14/23 12:20 Labs: Laboratory Results - last 24 hr 01/14/23 12:20: WBC 10.4, RBC 4.70, Hgb 12.4, Hct 37.9, MCV 80.6 L, MCH 26.4 L, MCHC 32.7, RDW Std Deviation 39.6, RDW Coeff of John 13.7, Plt Count 409, MPV 9.3, Immature Gran % (Auto) 0.800, Neut % (Auto) 59.7, Lymph % (Auto) 31.2, [place] % (Auto) 7.7, Eos % (Auto) 0.2, Baso % (Auto) 0.4, Absolute Neuts (auto) 6.2, Absolute Lymphs (auto) 3.24, Nucleated RBC % 0, Sodium 135 L, Potassium 2.8 L, Chloride 101, Carbon Dioxide 25.0, Anion Gap 9, BUN 8, Creatinine 1.20 H, Estim Creat Clear Calc 64.17, Est GFR (MDRD) Af Amer 67, Est GFR (MDRD) Non-Af 56 L, BUN/Creatinine Ratio 6.7 L, Glucose 241 H, Lactic Acid 2.1 H*, Calcium 9.3, Total Bilirubin 0.60, AST 12 L, ALT 17, Alkaline Phosphatase 63, Total Protein 8.1, Albumin 3.4, Globulin 4.7 H, Albumin/Globulin Ratio 0.7 L, Serum , Qual NEGATIVE 01/14/23 13:32: Urine Color Yellow, Urine Clarity Clear, Urine pH 8.0, Ur Specific [place] 1.015, Urine Protein 15 H, Urine Glucose (UA) 250 H, Urine Ketones 5 H, Urine Occult Blood 10 H, Urine Nitrite Negative, Urine Bilirubin Negative, Urine Urobilinogen Normal, Ur Leukocyte Esterase 25 H, Urine RBC 0-5 SEEN, Urine WBC 0-5 SEEN, Ur Squamous Epith Cells 0-5 SEEN, Urine Bacteria RARE, Urine Mucus 0 SEEN 01/14/23 13:33: Urine Opiates Screen NEGATIVE, Urine Methadone Screen NEGATIVE, Ur Barbiturates Screen NEGATIVE, Ur Phencyclidine Scrn NEGATIVE, Ur Amphetamines Screen NEGATIVE, MDMA (Ecstasy) Screen NEGATIVE, U Benzodiazepines Scrn NEGATIVE, Urine Cocaine Screen NEGATIVE, U Cannabinoids Screen POSITIVE H, Ur Drug Screen Comment 01/14/23 16:55: Lactic Acid 1.3 01/14/23 17:34: POC Glucose 189 H 01/14/23 22:04: POC Glucose 174 H 01/15/23 05:40: WBC 9.4, RBC 4.43, Hgb 11.7 L, Hct 35.6 L, MCV 80.4 L, MCH 26.4 L, MCHC 32.9, RDW Std Deviation 40.1, RDW Coeff of John 13.8, Plt Count 361, MPV 9.3, Immature Gran % (Auto) 0.600, Neut % (Auto) 56.4, Lymph % (Auto) 34.2, [place] % (Auto) 8.2, Eos % (Auto) 0.3, Baso % (Auto) 0.3, Absolute Neuts (auto) 5.3, Absolute Lymphs (auto) 3.20, Nucleated RBC % 0 01/15/23 06:11: POC Glucose 182 H Radiography Diagnostic Testing: Radiology Impression Abdomen/Pelvis CT 01/14/23 12:03 IMPRESSION: 2.1 cm left ovarian cyst. Electronically Signed: Bernard Sadler MD at 13:57 EDT , Assessment & Plan Assessment/Plan (1) Intractable nausea and vomiting: (2) Elevated serum creatinine: (3) Acute hypokalemia: (4) Failure of outpatient treatment: PLAN: Plan #Intractable nausea vomiting associated with constipation -CT abdomen in ED largely unrevealing -Labs do not point to specific cause -Given her significant constipation with no bowel movement in a couple weeks with history of nausea and vomiting when this happens to her we will add suppository as she does not think she can take any oral medications to help with bowel movements -Has history of cannabis use, will obtain UA though denies use for 1 week -i's and O's -Daily weights -IVF -Clear liquids -If no improvement after bowel movement may need evaluation for gastroparesis or evaluated by GI for potential endoscopies -We will start PPI -Nausea control -01/15: UDS positive for cannabinoids, continue Dulcolax suppositories and can administer enema if no improvement throughout the day, advance diet as tolerated, nausea control #CKDIIIb -Waxes and wanes, appears to be close to baseline, will receive IVF -01/15: #Hypokalemia -Replace #Type 2 diabetes mellitus, on insulin, uncontrolled -A1c 12.1 in November, uncontrolled -Glucose checks and sliding scale insulin -Continue long-acting -01/15: Continue present regimen, will continue to adjust as patient may need high er doses once p.o. intake improves #Left ovarian cyst -2.1 cm left ovarian cyst seen on CT -Last CT demonstrated the left ovarian cyst at roughly 1.8 x 2 cm and a smaller cyst in the right ovary #DVT ppx: Lovenox subcu Lexus Villatoro MD Time spent in the patient's overall evaluation,decision-making process, review of diagnostic data, adjustment of management, discussion with other providers, n angelicaing nursing and ancillary staff involved in patient's care documentation, 36 minutes
[2023-01-15 07:50] LABS: ALB/GLOB Ratio 0.7 RATIO (0.9-2.4); AST(SGOT) 13 U/L (15-37); Alanine Aminotransfer ALT/SGPT 14 U/L (13-56); Alkaline Phosphatase 54 U/L (45-117); Anion Gap 5 (5-15); BUN 6 mg/dL (7-18); BUN/Creat Ratio 6.6 RATIO (10-20); Calcium,Total 8.2 mg/dL (8.5-10.1); Chloride 105 mmol/L (98-107); Creatinine, Serum 0.91 mg/dL (0.55-1.02); EST Glomerular Filtration Rate 77 mL/min (>60); Est Glom Filt Rate - Afr Amer 93 mL/min (>60); Estimated Creatinine Clearance 84.62 ml/min; Globulin 4.1 g/dL (2.2-4.2); Glucose 154 mg/dL (74-106); Potassium 3.1 mmol/L (3.5-5.1); Protein, Total 7.1 g/dL (6.4-8.2); Sodium Level 136 mmol/L (136-145)
[2023-01-15 09:44] VITALS: BP 146/103; PULSE 80; RESP 16; TEMP 36.6; O2SAT 98
[2023-01-15] MEDS: Enoxaparin 40 MG/0.4 ML Syringe SC (09:58)
[2023-01-15] MEDS: Insulin Glargine-YFGN 100 UNIT/ML Pen 10 UNIT SC (09:58)
[2023-01-15] MEDS: Potassium Chloride Oral Tablet 20 MEQ 60 MEQ PO (11:54)
[2023-01-15 12:01] LABS: Bedside Glucose 247 mg/dL (74-106)
--- NOTE | 2023-01-15 14:11 | PCM.DC.SUM ---
Providers Date of Admission: 01/14/23 Date of Discharge: 01/15/23 Primary Care Physician: [facility] Reason For Visit: INTRACTABLE NAUSEA VOMITING, HYPOKALEMIA Diagnosis Discharge Diagnosis (1) Intractable nausea and vomiting: Status: Acute Code(s): R11.2 - Nausea with vomiting, unspecified (2) Elevated serum creatinine: Status: Acute Code(s): R79.89 - Other specified abnormal findings of blood chemistry (3) Acute hypokalemia: Status: Acute Code(s): E87.6 - Hypokalemia (4) Failure of outpatient treatment: Status: Acute Code(s): Z78.9 - Other specified health status (5) Cannabis abuse: Status: Acute Code(s): F12.10 - Cannabis abuse, uncomplicated (6) Diabetes: Status: Acute Code(s): E11.9 - Type 2 diabetes mellitus without complications Qualifiers: Diabetes mellitus complication status: with neurologic complications Diabetes mellitus continuous churn buttermaker insulin use: without continuous churn buttermaker use Diabetes mellitus type: type 2 Plan #Intractable nausea vomiting associated with constipation #Cannabis use #CKDIIIb #Hypokalemia #Type 2 diabetes mellitus, on insulin, uncontrolled #Left ovarian cyst Medications at Discharge Home Medications albuterol sulfate 90 mcg/actuation aerosol inhaler (Ventolin HFA) 1 inh inhalation Q4H SOB 04/06/22 metformin 500 mg tablet 1,000 mg PO BID DM 06/24/22 insulin glargine 100 unit/mL (3 mL) subcutaneous pen (Lantus Solostar U-100 Insulin) 15 unit subcut BID diabetes 08/12/22 hyoscyamine sulfate 0.125 mg sublingual tablet (Levsin/SL) 0.125 mg PO TID PRN abdominal pain #10 tabs 01/07/23 ondansetron 4 mg disintegrating tablet 4 mg PO Q8H PRN PRN Nausea #10 tabs 01/07/23 promethazine 25 mg tablet 25 mg PO TID PRN nausea and vomiting #20 tabs 01/09/23 trazodone 300 mg tablet 300 mg PO QHS 01/12/23 bisacodyl 10 mg rectal suppository (Dulcolax (bisacodyl)) 10 mg CA DAILY 3 days #12 ea 01/15/23 scopolamine base 1 mg over 3 days transdermal patch 1 patch transdermal Q3D PRN nausea and vomiting #4 ea 01/15/23 Hospital Course Summary of Care Provided Minutes Spent on Discharge: 31 Hospital Course: SHOLA PATTON, is a 32-year-old female with history of type 2 diabetes mellitus, hypertension, depression who presents to [facility] 01/14/2023 with 1 week of nausea, vomiting, difficulty tolerating p.o. Was initially thought that maybe she had cannabis hyperemesis syndrome as this is happened to her in the past reportedly but she reported she only smoked once a week ago and has not since. In the ED this visit she had presented to the ED several times over several days with the same symptoms with no underlying etiology identified and due to creatinine trending up, potassium low and intractable symptoms hospitalist consulted for admission. CT abdomen in ED overall unremarkable with only small hiatal hernia, normal urinary bladder and a 2.1 cm left ovarian cyst with no other acute abnormalities. Patient admitted and hypokalemia treated and she was given IV fluids and medications for nausea as well as suppository. In the a.m. patient reports she wants to go home, has not had a bowel movement and refused her Dulcolax suppository in the morning and said that her abdominal pain and nausea are slightly better. Discussed that she still has the constipation in about her hypokalemia and potential for dehydration and she verbalized her understanding and still would like to leave and manage this on an outpatient basis. She reports in past scopolamine patches have helped her and she is willing to do suppositories at home and drink liquids with electrolytes and slowly advance her diet. Patient has capacity make this decision. I suspect this is multifactorial with constipation being contributing factor but additionally think that cannabis may play a role as she said the capsaicin helps and she said the most helpful thing for her are showers which is consistent with cannabis induced. Patient verbalized her understanding of rationale for the recommendation that she stay and has capacity make this decision at this time. She is also informed of the low potassium and she reports she will try to adjust her diet for this, strongly recommend lab work as below. D/c instructions as follows: -Would recommend lab work (BMP) to check your potassium in 2 to 3 days through your primary care physician's office. Please call their office upon discharge to obtain order for lab work. -You will be sent in prescription for scopolamine patch for nausea and suppository, it is very important that you begin a bowel regimen and that you keep your bowel movements regular -Recommend holding your metformin until your oral intake improves and you are able to tolerate liquids and have improved eating -It is highly advised you refrain from any cannabis use -You were noted to have a small ovarian cyst, this was seen previous on a scan of your abdomen as well. Please follow up with your PCP or ob/remedial teacher for further management and monitoring -Please call your primary care provider's office upon discharge to schedule a hospital follow up within 1 week. -For any concerning signs or symptoms please call 911 or proceed to the nearest emergency department Physical Exam Narrative General: Alert, oriented, appears upset HEENT: Atraumatic, normocephalic Eyes: Anicteric, normal conjunctiva, extraocular movements grossly intact Neck: Supple Respiratory: Clear to auscultation bilaterally, normal respiratory effort Cardiovascular: Regular rate and rhythm GI: Soft, nondistended, diffusely complains of not feeling well with no localizing symptoms Extremities: No edema Musculoskeletal: Moving all extremities Neuro: No overt focal neurological deficits Skin: No rashes appreciated Psych: Tearful Weight / BMI Weight Weight: 104 kg Body Mass Index (BMI) 37.0 ABG / Lab / Microbiology Data 01/15/23 05:40 01/15/23 05:40 Laboratory: Laboratory Results - last 24 hr 01/14/23 13:32: Urine RBC 0-5 SEEN, Urine WBC 0-5 SEEN, Ur Squamous Epith Cells 0-5 SEEN, Urine Bacteria RARE, Urine Mucus 0 SEEN 01/14/23 13:33: Urine Opiates Screen NEGATIVE, Urine Methadone Screen NEGATIVE, Ur Barbiturates Screen NEGATIVE, Ur Phencyclidine Scrn NEGATIVE, Ur Amphetamines Screen NEGATIVE, MDMA (Ecstasy) Screen NEGATIVE, U Benzodiazepines Scrn NEGATIVE, Urine Cocaine Screen NEGATIVE, U Cannabinoids Screen POSITIVE H, Ur Drug Screen Comment 01/14/23 16:55: Lactic Acid 1.3 01/14/23 17:34: POC Glucose 189 H 01/14/23 22:04: POC Glucose 174 H 01/15/23 05:40: WBC 9.4, RBC 4.43, Hgb 11.7 L, Hct 35.6 L, MCV 80.4 L, MCH 26.4 L, MCHC 32.9, RDW Std Deviation 40.1, RDW Coeff of John 13.8, Plt Count 361, MPV 9.3, Immature Gran % (Auto) 0.600, Neut % (Auto) 56.4, Lymph % (Auto) 34.2, [place] % (Auto) 8.2, Eos % (Auto) 0.3, Baso % (Auto) 0.3, Absolute Neuts (auto) 5.3, Absolute Lymphs (auto) 3.20, Nucleated RBC % 0, Sodium 136, Potassium 3.1 L, Chloride 105, Carbon Dioxide 26.0, Anion Gap 5, BUN 6 L, Creatinine 0.91, Estim Creat Clear Calc 84.62, Est GFR (MDRD) Af Amer 93, Est GFR (MDRD) Non-Af 77, BUN/Creatinine Ratio 6.6 L, Glucose 154 H, Calcium 8.2 L, Magnesium 2.0, Total Bilirubin 0.60, AST 13 L, ALT 14, Alkaline Phosphatase 54, Total Protein 7.1, Albumin 3.0 L, Globulin 4.1, Albumin/Globulin Ratio 0.7 L, TSH 2.30 01/15/23 06:11: POC Glucose 182 H 01/15/23 11:20: POC Glucose 247 H Microbiology: Microbiology 01/14/23 13:32 Urine, Clean Catch Urine Culture - Final Mixed Gram Positive Organisms D/C Instructions Discharge Diet: Light diet - advance as tolerated Meaningful Use Info Meaningful Use Diagnoses (Choose all that apply): None applicable Discharge Plan Admission Admit Date/Time: 01/14/23 15:52 Primary Reason for Your Visit: Nausea and abdominal pain Attending Provider: Lexus Villatoro [facility] Inst[facility] Patient Instructions: Cannabinoid Hyperemesis Syndrome, ED Constipation (Adult), ED Diet Vomiting Diarrhea, ED Vomiting (Adult) Additional Instructions / Restrictions: DISCHARGE INSTRUCTIONS PLEASE READ *Please take this with you to your next doctors appointment* -Would recommend lab work (BMP) to check your potassium in 2 to 3 days through your primary care physician's office. Please call their office upon discharge to obtain order for lab work. -You will be sent in prescription for scopolamine patch for nausea and suppository, it is very important that you begin a bowel regimen and that you keep your bowel movements regular -Recommend holding your metformin until your oral intake improves and you are able to tolerate liquids and have improved eating -It is highly advised you refrain from any cannabis use -You were noted to have a small ovarian cyst, this was seen previous on a scan of your abdomen as well. Please follow up with your PCP or ob/remedial teacher for further management and monitoring -Please call your primary care provider's office upon discharge to schedule a hospital follow up within 1 week. -For any concerning signs or symptoms please call 911 or proceed to the nearest emergency department Discharge Orders/Prescriptions Prescriptions: New scopolamine base 1 mg over 3 days patch 3 day 1 patch transdermal Q3D PRN (Reason: nausea and vomiting) Qty: 4 0RF bisacodyl [Dulcolax (bisacodyl)] 10 mg suppository 10 mg CA DAILY 3 Days Qty: 12 0RF Rx Instructions: Hold for diarrhea Continued albuterol sulfate [Ventolin HFA] 90 mcg/actuation HFA aerosol inhaler 1 inh INHALATION Q4H insulin glargine [Lantus Solostar U-100 Insulin] 100 unit/mL (3 mL) insulin pen 15 unit SUBCUT BID Patient Comments: inject 20 units subcutaneous twice daily hyoscyamine sulfate [Levsin/SL] 0.125 mg tablet, sublingual 0.125 mg PO TID PRN (Reason: abdominal pain) Qty: 10 0RF ondansetron 4 mg tablet,disintegrating 4 mg PO Q8H PRN PRN (Reason: Nausea) Qty: 10 0RF promethazine 25 mg tablet 25 mg PO TID PRN (Reason: nausea and vomiting) Qty: 20 0RF trazodone 300 mg tablet 300 mg PO QHS Patient Comments: take 1 tablets 30 minutes before bedtime Held metformin 500 mg tablet 1,000 mg PO BID Hold Instructions: Resume on 01/20/23. Hold until nausea, vomiting, oral intake improve Discontinued sulfamethoxazole-trimethoprim 800-160 mg tablet 1 tab PO BID sulfamethoxazole-trimethoprim [Bactrim DS] 800-160 mg tablet 1 tab PO BID 2 Days Qty: 4 0RF cephalexin 500 mg capsule 500 mg PO TID 7 Days Qty: 21 0RF dicyclomine 20 mg tablet 20 mg PO TID Qty: 14 0RF ondansetron 4 mg tablet,disintegrating 4 mg PO Q6H PRN (Reason: nausea and vomiting) Qty: 7 0RF Referrals [facility]Primary [facility] - Within 1 Week Disposition Disposition (needs filled in before D/C Order can be placed): Home, Self Care Charges/Coding Visit Charges Inpatient E&M: 52839 Disch Hosp >30min
[2023-01-15 15:08] VITALS: BP 168/102; PULSE 73; RESP 16; TEMP 36.6; O2SAT 97
== END 2023-01-15 16:19 | disposition home or self-care (01) ==
LOC: ED 15:33 → MS3 16:05
PROVIDERS: Admitting Provider Internal Medicine; Emergency Provider Emergency Medicine; Visit Provider Internal Medicine
DX: R11.2 Nausea with vomiting, unspecified (principal); E11.22 Type 2 diabetes mellitus with diabetic chronic kidney disease; E11.42 Type 2 diabetes mellitus with diabetic polyneuropathy; Z79.4 Long term (current) use of insulin; N18.32 Chronic kidney disease, stage 3b; E87.6 Hypokalemia; F12.10 Cannabis abuse, uncomplicated; K44.9 Diaphragmatic hernia without obstruction or gangrene; I10 Essential (primary) hypertension; J45.909 Unspecified asthma, uncomplicated; Z79.899 Other long term (current) drug therapy; Z79.84 Long term (current) use of oral hypoglycemic drugs; F17.210 Nicotine dependence, cigarettes, uncomplicated; N83.201 Unspecified ovarian cyst, right side; N83.202 Unspecified ovarian cyst, left side
CPT/HCPCS: 36415; 74177; 80053; 80307; 81001; 82962; 83605; 83735; 84443; 84703; 85025; 87086; 87088; 96361; 96365; 96366; 96367; 96372; 96375; 96376; 97802; 99221; 99285; 99406; J7030; J7120; Q9967; A4216; G0378; J2405

== ENCOUNTER 2023-01-25 11:33 | Emergency (ER) | payer MEDICAID, SELFPAY ==
[2023-01-25 11:35] VITALS: BP 123/87; PULSE 86; RESP 14; TEMP 35.5; O2SAT 100; BMI 35.2
--- NOTE | 2023-01-25 12:06 | EDS_ITS ---
HPI History of Present Illness Chief Complaint: Nausea/Vomiting Informant: patient and PCP Narrative Narrative: Patient presents secondary to continued nausea, vomiting, weakness. Patient has been seen in this emergency room several times as well as other local ERs over the past 3 weeks with nausea and vomiting. She was admitted to the hospital a week ago but left the following day. She reportedly has had constipation. Most recent CT scan showed some thickening of the bowel in the sigmoid region. She went to see the nurse practitioner at [facility] today. She called me seeing the patient did not look well and per her documentation the patient has lost 19 pounds. [facility] Medical History Anxiety Asthma Constipation Depression Diabetes mellitus with diabetic polyneuropathy Elevated serum creatinine Failure of outpatient treatment Hypertension Type 2 diabetes mellitus with foot ulcer Home Medications albuterol sulfate 90 mcg/actuation aerosol inhaler (Ventolin HFA) 1 inh inhalation Q4H SOB 04/06/22 [History Last Taken 06/24/22] metformin 500 mg tablet 1,000 mg PO BID DM 06/24/22 [History Last Taken 06/24/22] insulin glargine 100 unit/mL (3 mL) subcutaneous pen (Lantus Solostar U-100 Insulin) 15 unit subcut BID diabetes 08/12/22 [History Last Taken Unknown] hyoscyamine sulfate 0.125 mg sublingual tablet (Levsin/SL) 0.125 mg PO TID PRN abdominal pain #10 tabs 01/07/23 [Rx Last Taken Unknown] ondansetron 4 mg disintegrating tablet 4 mg PO Q8H PRN PRN Nausea #10 tabs 01/07/23 [Rx Last Taken Unknown] promethazine 25 mg tablet 25 mg PO TID PRN nausea and vomiting #20 tabs 01/09/23 [Rx Last Taken Unknown] trazodone 300 mg tablet 300 mg PO QHS 01/12/23 [History Last Taken Unknown] bisacodyl 10 mg rectal suppository (Dulcolax (bisacodyl)) 10 mg MA DAILY 3 days #12 ea 01/15/23 [Rx Last Taken Unknown] scopolamine base 1 mg over 3 days transdermal patch 1 patch transdermal Q3D PRN nausea and vomiting #4 ea 01/15/23 [Rx Last Taken Unknown] omeprazole 40 mg capsule,delayed release 40 mg PO BID #60 caps 01/19/23 [Rx Last Taken Unknown] Allergy/AdvReac Type Severity Reaction Status Date / Time No Known Allergies Allergy Verified 01/25/23 11:35 Family History Other Bleeding disorder Cancer Diabetes Hypertension Surgical History Hx of foot surgery Social History Smoking Status: Current every day smoker tobacco type: cigarettes alcohol intake: never substance use type: does not use what type of physical activity do you participate in: none ROS ROS ED Constitutional Constitutional ED: Denies chills or fever(s) Eyes Eyes: Denies change in vision or discharge from eye(s) ENT ENT ED: Denies discharge from eye(s), rhinorrhea or sore throat Cardiovascular Cardiovascular: Denies chest pain or palpitations Respiratory/Chest Respiratory/Chest: Denies cough or dyspnea Gastrointestinal Gastrointestinal: Reports abdominal pain, constipation, nausea and vomiting; Denies diarrhea Genitourinary Genitourinary ED: Denies difficulty urinating or dysuria Musculoskeletal Musculoskeletal: Denies back pain or extremity pain Integumentary Denies Abrasions or rash Neurologic Neurologic: Reports weakness; Denies headache(s) Psychiatric Psychiatric: Denies anxiety or depression Allergic/Immunologic Allergic/Immunologic ED: Denies lip swelling or urticaria EXAM Physical Exam Const Vital Signs: 01/25/23 11:35 Temperature 96 F L Temperature Source Temporal Pulse Rate 86 Respiratory Rate 14 Blood Pressure 123/87 H Blood Pressure Mean 99 Pulse Ox 100 Oxygen Delivery Method Room Air Positive well nourished and well developed General Appearance ED: well developed HEENT Reports normocephalic and head/scalp atraumatic HEENT Narrative: Ill-appearing, but nontoxic. Eyes PERRL and EOMs intact bilaterally Neck supple Chest Wall inspection of chest normal and palpation of chest normal Resp normal respiratory effort and clear to auscultation bilaterally Cardio regular rate and regular rhythm GI GI Narrative: Abdomen soft with mild diffuse tenderness. No guarding or rebound. Hypoactive bowel sounds. Palpation: soft Extremity normal to inspection Neuro oriented x3 and no sensory deficits noted Sensorium / Orientation: alert Motor Exam: strength 5/5 throughout Psych mental status grossly normal Skin no rashes or lesions noted MDM MDM MDM Narrative Medical decision making narrative: Labwork obtained to evaluate for leukocytosis, anemia, and electrolyte derangement. EKG obtained to evaluate for cardiac arrhythmia/ischemia. IV fluids ordered. I wanted to evaluate her QTc prior to initiating antiemetics. EKG Initial EKG: Attestation: I personally reviewed and interpreted this EKG as follows: Interpretation: Sinus Rhythm (Sinus 83 with no acute ischemia. QTc is 42 3.) Treatment and Re-Evaluation :: Nursing staff had difficulty getting an IV line. Patient refused any further IV attempts and eloped from the emergency department. She stated that she had antiemetics at home to use I did not want any further work-up in the ER at this time. Discharge Plan Triage Chief Complaint: Nausea/Vomiting ED Provider: Deann Guerrero Dx/Rx/DC Orders Clinical Impression: Vomiting Prescriptions: No Action albuterol sulfate [Ventolin HFA] 90 mcg/actuation HFA aerosol inhaler 1 inh INHALATION Q4H metformin 500 mg tablet 1,000 mg PO BID Hold Instructions: Resume on 01/20/23. Hold until nausea, vomiting, oral intake improve insulin glargine [Lantus Solostar U-100 Insulin] 100 unit/mL (3 mL) insulin pen 15 unit SUBCUT BID Patient Comments: inject 20 units subcutaneous twice daily scopolamine base 1 mg over 3 days patch 3 day 1 patch transdermal Q3D PRN (Reason: nausea and vomiting) Qty: 4 0RF bisacodyl [Dulcolax (bisacodyl)] 10 mg suppository 10 mg MA DAILY 3 Days Qty: 12 0RF Rx Instructions: Hold for diarrhea hyoscyamine sulfate [Levsin/SL] 0.125 mg tablet, sublingual 0.125 mg PO TID PRN (Reason: abdominal pain) Qty: 10 0RF ondansetron 4 mg tablet,disintegrating 4 mg PO Q8H PRN PRN (Reason: Nausea) Qty: 10 0RF promethazine 25 mg tablet 25 mg PO TID PRN (Reason: nausea and vomiting) Qty: 20 0RF trazodone 300 mg tablet 300 mg PO QHS Patient Comments: take 1 tablets 30 minutes before bedtime omeprazole 40 mg capsule,delayed release(DR/EC) 40 mg PO BID Qty: 60 2RF Rx Instructions: take two times a day for 8 weeks then once a day Primary Care Provider: [facility] Sophy Santiago Referrals: [facility] Sophy Santiago [Primary Care Provider] - Disposition Disposition: Elopement
== END 2023-01-25 12:35 | disposition left against medical advice (07) ==
PROVIDERS: Emergency Provider Emergency Medicine; Visit Provider Emergency Medicine
DX: R11.2 Nausea with vomiting, unspecified (principal); E11.42 Type 2 diabetes mellitus with diabetic polyneuropathy; I10 Essential (primary) hypertension; F17.210 Nicotine dependence, cigarettes, uncomplicated; Z53.29 Procedure and treatment not carried out because of patient's decision for other reasons
CPT/HCPCS: 36415; 93005; 96361; 96374; 96375; 99284; J7030; A4216

== ENCOUNTER 2023-02-04 02:30 | Emergency (ER) | payer MEDICAID, SELFPAY ==
--- NOTE | 2023-02-04 06:09 | EDS_ITS ---
HPI HPI - GI History of Present Illness Chief Complaint: Nausea/Vomiting Detail of Chief Complaint: Nausea and vomiting Informant: patient Abdominal Pain/Flank Pain Onset: Weeks Context: Gradual Onset Timing: Intermittent Quality: Cramping Location: Diffuse Current Severity: Mild Maximum Severity: Mild Worsened by: Nothing Relieved by: Nothing Nausea/Vomiting/Emesis GI Symptom: Positive for Nausea and Vomiting Onset: Weeks Quality: Negative for Blood streaks, Coffee ground or Hematemesis Severity: Moderate Diarrhea/Melena/Hematochezia GI Symptom: Negative for Diarrhea, Melena or Hematochezia Narrative Narrative: 33-year-old female past medical history of insulin dependent diabetes. Complaining of 1 month history of recurrent nausea and vomiting. States she used to use marijuana but has quit. She denies any fever. She denies any hematemesis. No black or bloody stools. Last menstrual period was 2 weeks ago. She has been seen and evaluated for this before. Prior work-ups have been neg ative. Was thought to potentially be cannabis induced hyperemesis. Patient is emotionally upset and tearful. Prior similar symptoms: Yes Recent Illness/Hospitalization: No PFSH PFSH Medical History Anxiety Asthma Constipation Depression Diabetes mellitus with diabetic polyneuropathy Elevated serum creatinine Failure of outpatient treatment Hypertension Type 2 diabetes mellitus with foot ulcer Home Medications albuterol sulfate 90 mcg/actuation aerosol inhaler (Ventolin HFA) 1 inh inhalation Q4H SOB 04/06/22 [History Last Taken 06/24/22] metformin 500 mg tablet 1,000 mg PO BID DM 06/24/22 [History Last Taken 06/24/22] insulin glargine 100 unit/mL (3 mL) subcutaneous pen (Lantus Solostar U-100 Insulin) 15 unit subcut BID diabetes 08/12/22 [History Last Taken Unknown] hyoscyamine sulfate 0.125 mg sublingual tablet (Levsin/SL) 0.125 mg PO TID PRN abdominal pain #10 tabs 01/07/23 [Rx Last Taken Unknown] ondansetron 4 mg disintegrating tablet 4 mg PO Q8H PRN PRN Nausea #10 tabs 01/07/23 [Rx Last Taken Unknown] promethazine 25 mg tablet 25 mg PO TID PRN nausea and vomiting #20 tabs 01/09/23 [Rx Last Taken Unknown] trazodone 300 mg tablet 300 mg PO QHS 01/12/23 [History Last Taken Unknown] bisacodyl 10 mg rectal suppository (Dulcolax (bisacodyl)) 10 mg GA DAILY 3 days #12 ea 01/15/23 [Rx Last Taken Unknown] scopolamine base 1 mg over 3 days transdermal patch 1 patch transdermal Q3D PRN nausea and vomiting #4 ea 01/15/23 [Rx Last Taken Unknown] omeprazole 40 mg capsule,delayed release 40 mg PO BID #60 caps 01/19/23 [Rx Last Taken Unknown] Allergy/AdvReac Type Severity Reaction Status Date / Time No Known Allergies Allergy Verified 01/25/23 11:35 Family History Other Bleeding disorder Cancer Diabetes Hypertension Surgical History Hx of foot surgery Social History Smoking Status: Current every day smoker tobacco type: cigarettes alcohol intake: never substance use type: does not use what type of physical activity do you participate in: none ROS ROS ED ROS Narrative Nausea and vomiting. Abdominal cramping. Review of Systems ROS Unobtainable: Denies due to encephalopathy Constitutional Constitutional ED: Denies chills or fever(s) ENT ENT ED: Denies ear pain Cardiovascular Cardiovascular: Denies chest pain Respiratory/Chest Respiratory/Chest: Denies cough or dyspnea Gastrointestinal Gastrointestinal: Reports abdominal pain, nausea and vomiting; Denies constipation, diarrhea or melena Genitourinary Genitourinary ED: Denies dysuria or hematuria Musculoskeletal Musculoskeletal: Denies arthralgias Integumentary Denies abscess Neurologic Neurologic: Denies headache(s) Psychiatric Psychiatric: Denies anxiety Endocrine Endocrinology: Denies polydipsia Hematologic/Lymphatic Hematologic/Lymphatic: Denies easy bleeding Allergic/Immunologic Allergic/Immunologic ED: Denies mouth swelling EXAM Physical Exam Narrative Exam Narrative: 33-year-old female emotionally upset tearful. Actively nausea and vomiting into an emesis bag. Vital signs are stable and afebrile. She does not look septic or toxic. H EENT exam unremarkable. Neck nontender. Lungs clear to auscultation bilaterally. Heart regular rhythm rate about 80 no murmur. Abdomen soft nondistended normal bowel sounds no peritoneal signs. No signs of obstruction. No localizing right upper or right lower quadrant tenderness. No hernia or mass. Positive bowel sounds. Moving all 4 extremities. Nontender. No edema. Neurologically she is awake and alert with no focal motor deficits. Const Positive well nourished and well developed; Negative for cachectic, contractures or unkempt General Appearance ED: well developed and NAD; Negative for unkempt, cachectic, contractures or pallor Nutritional Appearance: Negative for cachectic HEENT Reports moist mucous membranes normocephalic and atraumatic; Negative for trauma or tenderness Eyes PERRL and EOMs intact bilaterally General Eye ED: Negative for pale conjunctiva or scleral icterus Neck no lymphadenopathy, supple and no JVD General: Negative for tenderness Lymph Lymphatic: Negative for other Resp normal respiratory effort and clear to auscultation bilaterally Effort and Inspection: Negative for respiratory distress Auscultation: Negative for rales, rhonchi or wheezes Cardio regular rate, regular rhythm, S1 normal heart sound, S2 normal heart sound and no murmurs GI non-tender, non-distended and no masses Inspection: Negative for abdominal distention Auscultation: normoactive bowel sounds Palpation: soft; Negative for tender, guarding, rigid, hernia, mass, pulsatile mass or rebound tenderness present Back/Spine no CVA tenderness General Back: Negative for CVA tenderness Cervical Spine: Negative for cervical spine tenderness Thoracic Spine / Upper Back: Negative for thoracic spinal tenderness Lumbar Spine / Lower Back: Negative for lumbar spinal tenderness Coccyx: Negative for other Extremity full ROM General Extremety ED: Negative for edema or tenderness General Extremity: Negative for edema Neuro CN's II-XII intact bilaterally and moves all extremities Sensorium / Orientation: alert, oriented to person, oriented to place and oriented to time; Negative for orientation impaired, confused or lethargic Motor Exam: strength 5/5 throughout Psych mental status grossly normal and thought process normal Appearance: Negative for unkempt Attitude: No agitated Mood & Affect: anxious and tearful; Negative for depressed Skin no wounds General Skin Exam: Negative for jaundice or pallor Lesions: no lesions Rashes: no rashes Trauma: Negative for abrasion Nails: Negative for discolored MDM MDM MDM Narrative Medical decision making narrative: 33-year-old female with nausea vomiting. Benign exam. I do not think she needs any imaging. This may be cannabis induced hyperemesis. Screening labs to be obtained. She will be treated with IV fluids Toradol and Zofran. Reassessed. Multiple repeat exams. Patient was given a second dose of Zofran due to her nausea. She and I went over her test results. There is no reason for additional studies. She and I talked that this may be cannabis induced hyperemesis. She will be discharged home with a prescription for Zofran. We were on computer downtime. Orders and prescription were handwritten. History & Record Review Discussion w/independent historian: Patient Lab Data Attestation: I reviewed the patient's lab results. Lab results narrative: CBC was unremarkable. White count 8. H&H 12 and 37. Platelets 358. CMP showed anion gap of 8. Glucose of 259 she is diabetic. Liver enzymes unremarkable. Lipase normal at 51. Discharge Plan Triage Chief Complaint: Nausea/Vomiting ED Provider: Fabricio Guevara Dx/Rx/DC Orders Clinical Impression: Diabetes, Cannabis abuse, Nausea and vomiting Instructions: ED Vomiting (Adult) Prescriptions: No Action albuterol sulfate [Ventolin HFA] 90 mcg/actuation HFA aerosol inhaler 1 inh INHALATION Q4H metformin 500 mg tablet 1,000 mg PO BID Hold Instructions: Resume on 01/20/23. Hold until nausea, vomiting, oral intake improve insulin glargine [Lantus Solostar U-100 Insulin] 100 unit/mL (3 mL) insulin pen 15 unit SUBCUT BID Patient Comments: inject 20 units subcutaneous twice daily scopolamine base 1 mg over 3 days patch 3 day 1 patch transdermal Q3D PRN (Reason: nausea and vomiting) Qty: 4 0RF bisacodyl [Dulcolax (bisacodyl)] 10 mg suppository 10 mg GA DAILY 3 Days Qty: 12 0RF Rx Instructions: Hold for diarrhea hyoscyamine sulfate [Levsin/SL] 0.125 mg tablet, sublingual 0.125 mg PO TID PRN (Reason: abdominal pain) Qty: 10 0RF ondansetron 4 mg tablet,disintegrating 4 mg PO Q8H PRN PRN (Reason: Nausea) Qty: 10 0RF promethazine 25 mg tablet 25 mg PO TID PRN (Reason: nausea and vomiting) Qty: 20 0RF trazodone 300 mg tablet 300 mg PO QHS Patient Comments: take 1 tablets 30 minutes before bedtime omeprazole 40 mg capsule,delayed release(DR/EC) 40 mg PO BID Qty: 60 2RF Rx Instructions: take two times a day for 8 weeks then once a day [facility] Restrictions/Additional Instructions: Plenty of fluids and rest. Slowly increase your diet as tolerated. Follow-up if not improving. Zofran as needed for nausea. Disposition Disposition: Home, Self Care Discharge Date/Time: 02/04/23 04:00
[2023-02-04 07:33] LABS: ALB/GLOB Ratio 0.7 RATIO (0.9-2.4); AST(SGOT) 18 U/L (15-37); Alanine Aminotransfer ALT/SGPT 29 U/L (13-56); Albumin, Serum 3.4 g/dL (3.2-5.0); Alkaline Phosphatase 94 U/L (45-117); Anion Gap 10 (5-15); BUN 7 mg/dL (7-18); Calcium,Total 9.2 mg/dL (8.5-10.1); Chloride 103 mmol/L (98-107); EST Glomerular Filtration Rate 69 mL/min (>60); Est Glom Filt Rate - Afr Amer 84 mL/min (>60); Globulin 4.7 g/dL (2.2-4.2); Glucose 259 mg/dL (74-106); Lipase 51 U/L (13-75); Potassium 3.5 mmol/L (3.5-5.1); Protein, Total 8.1 g/dL (6.4-8.2); Sodium Level 138 mmol/L (136-145)
[2023-02-04 07:55] LABS: Absolute Lymphocyte Count 3.25 X10^3/uL (0.83-4.51); Absolute Neutrophil Count 4.9 X10^3/uL (2.0-7.7); Basophil# 0.03 X10^3/uL; Basophil% 0.3 % (0-1); Eosinophil# 0.04 X10^3/uL; Eosinophils% 0.5 % (0-5); Hematocrit 37.2 % (37-47); Hemoglobin 12.5 g/dL (12.0-15.0); Lymphocyte # 3.25 X10^3/ul (0.83-4.51); Mean Corp Hgb Conc 33.6 g/dL (32-36); Mean Corpuscular Hgb 26.9 pg (27.0-32.0); Mean Platelet Vol. 9.4 fl (6.2-12.0); Monocyte# 0.51 X10^3/uL; Monocyte% 5.8 % (0-10); NRBC Flagged by Analyzer 0 % (0-5); Neutrophil % 55.7 % (47-70); Platelet Count 358 K/mm3 (150-450); RBC Distribution Width CV 13.6 % (11.6-14.6); RBC Distribution Width SD 39.2 fl (35.1-43.9); Red Blood Count 4.65 M/mm3 (4.2-5.4); White Blood Count 8.8 K/mm3 (4.4-11.0)
== END 2023-02-04 04:00 | disposition home or self-care (01) ==
LOC: ED 05:54
PROVIDERS: Emergency Provider Emergency Medicine; Visit Provider Emergency Medicine
DX: E11.9 Type 2 diabetes mellitus without complications (principal); R11.2 Nausea with vomiting, unspecified; I10 Essential (primary) hypertension; F12.10 Cannabis abuse, uncomplicated; F17.210 Nicotine dependence, cigarettes, uncomplicated
CPT/HCPCS: 36415; 80053; 83690; 85025; 96374; 96375; 99285; J7030; A4216; J2405

== ENCOUNTER 2023-02-08 11:05 | Emergency (ER) | payer MEDICAID, SELFPAY ==
[2023-02-08 11:06] VITALS: BP 149/90; PULSE 83; RESP 20; TEMP 35.5; O2SAT 100; BMI 34.0
--- NOTE | 2023-02-08 11:09 | EKG12_ITS ---
Test Reason : CP Blood Pressure : / mmHG Vent. Rate : 076 BPM Atrial Rate : 076 BPM P-R Int : 126 ms QRS Dur : 080 ms QT Int : 392 ms P-R-T Axes : 019 008 037 degrees QTc Int : 441 ms Normal sinus rhythm Normal ECG Confirmed by KIYA BOYCE, DESTINY ([id number]), editor & co founder KAYLA PRATHER ([id number]) on 02/09/2023 11:01:15 AM Referred By: MARCOS/SHANE Confirmed By:DESTINY HUERTAS MD
--- NOTE | 2023-02-08 12:16 | CT_ITS ---
STUDY: CT ABDOMEN AND PELVIS WITH CONTRAST REASON FOR EXAM: Female, 33 years old. Epigastric pain with nausea. RADIATION DOSAGE (If Supplied By Facility): CTDIvol = ( 15.89 ) mGy, DLP = ( 1228.47 ) mGycm TECHNIQUE: Transaxial images were obtained from the dome of the diaphragm to the symphysis pubis with oral contrast. Oral and amp; IV Gastrografin and amp; 100mL Isovue-300 was administered. Sagittal and coronal images were reconstructed. Individualized dose optimization techniques were used for this CT. COMPARISON: Comparison is made with prior study dated January 14, 2023. FINDINGS: The visualized lung bases are unremarkable. The visualized portions of the heart are within normal limits. Normal liver. Normal gallbladder and extrahepatic biliary system. Normal spleen. Normal pancreas. Normal bilateral adrenal glands. Normal right kidney. Normal left kidney. Normal visualized stomach. Normal small intestine. There are scattered colonic diverticula consistent with diverticulosis. The appendix is visualized and appears normal. Normal abdominal aorta. Normal inferior vena cava. Normal retroperitoneum. Normal urinary bladder. Previously seen left ovarian cyst is essentially unchanged. Normal abdominal wall. Normal osseous structures. CT/Abdomen/Pelvis WITH Contrast IMPRESSION: Small left ovarian cyst. Sigmoid diverticulosis. Electronically Signed: Bernard Sadler MD at 14:47 EDT ,
--- NOTE | 2023-02-08 12:18 | EDS_ITS ---
HPI HPI - GI History of Present Illness Chief Complaint: Abd Pain Detail of Chief Complaint: Abdominal pain Informant: patient Narrative Narrative: Patient presents to the emergency department with complaint of abdominal pain and vomiting that she has had for 1 month. Patient has been seen for this recently in the emergency department and was thought some of her symptoms may be due to hyperemesis due to THC abuse. Patient tells me she has not smoked marijuana in over a month. Patient started having discomfort into her upper chest today. Patient tells me that she passed out in the shower today. Patient does not think she is . I am told by family welfare social work professor that patient has multiple frequent visits to the emergency department is currently in the process of having a care plan for possible narcotic seeking behavior. Patient denies urinary symptoms. She denies fever. She has had no blood in her stool or black tarry stool. PFSH [facility] Medical History Anxiety Asthma Constipation Depression Diabetes mellitus with diabetic polyneuropathy Elevated serum creatinine Failure of outpatient treatment Hypertension Type 2 diabetes mellitus with foot ulcer Home Medications albuterol sulfate 90 mcg/actuation aerosol inhaler (Ventolin HFA) 1 inh inhalation Q4H SOB 04/06/22 [History Last Taken 06/24/22] metformin 500 mg tablet 1,000 mg PO BID DM 06/24/22 [History Last Taken 06/24/22] insulin glargine 100 unit/mL (3 mL) subcutaneous pen (Lantus Solostar U-100 Insulin) 15 unit subcut BID diabetes 08/12/22 [History Last Taken Unknown] hyoscyamine sulfate 0.125 mg sublingual tablet (Levsin/SL) 0.125 mg PO TID PRN abdominal pain #10 tabs 01/07/23 [Rx Last Taken Unknown] ondansetron 4 mg disintegrating tablet 4 mg PO Q8H PRN PRN Nausea #10 tabs 01/07/23 [Rx Last Taken Unknown] promethazine 25 mg tablet 25 mg PO TID PRN nausea and vomiting #20 tabs 01/09/23 [Rx Last Taken Unknown] trazodone 300 mg tablet 300 mg PO QHS 01/12/23 [History Last Taken Unknown] bisacodyl 10 mg rectal suppository (Dulcolax (bisacodyl)) 10 mg NE DAILY 3 days #12 ea 01/15/23 [Rx Last Taken Unknown] scopolamine base 1 mg over 3 days transdermal patch 1 patch transdermal Q3D PRN nausea and vomiting #4 ea 01/15/23 [Rx Last Taken Unknown] omeprazole 40 mg capsule,delayed release 40 mg PO BID #60 caps 01/19/23 [Rx Last Taken Unknown] dicyclomine 10 mg capsule 20 mg (2 x 10 mg) PO TIDAC #20 CAPSULES 02/08/23 [Rx Last Taken Unknown] lansoprazole 30 mg capsule,delayed release (Prevacid) 30 mg PO DAILY #14 caps 02/08/23 [Rx Last Taken Unknown] ondansetron 4 mg disintegrating tablet 4 mg PO Q8H PRN PRN Nausea #10 tabs 02/08/23 [Rx Last Taken Unknown] Allergy/AdvReac Type Severity Reaction Status Date / Time No Known Allergies Allergy Verified 02/08/23 11:05 Family History Other Bleeding disorder Cancer Diabetes Hypertension Surgical History Hx of foot surgery Social History Smoking Status: Current every day smoker tobacco type: cigarettes alcohol intake: never substance use type: does not use what type of physical activity do you participate in: none ROS ROS ED Review of Systems ROS Unobtainable: other Constitutional Constitutional ED: Reports lethargy; Denies chills, fever(s), sweats or weight loss Eyes Eyes: Denies blurry vision, change in vision or diplopia ENT ENT ED: Denies rhinorrhea or sore throat Cardiovascular Cardiovascular: Reports chest pain; Denies orthopnea or racing heartbeat Respiratory/Chest Respiratory/Chest: Denies cough, dyspnea, dyspnea on exertion, orthopnea or sputum Gastrointestinal Gastrointestinal: Reports abdominal pain and nausea; Denies diarrhea or vomiting Genitourinary Genitourinary ED: Denies dysuria, hematuria or urinary frequency Musculoskeletal Musculoskeletal: Denies arthralgias, back pain, myalgias or neck pain Integumentary Denies abscess, Abrasions or rash Neurologic Neurologic: Denies headache(s) or weakness Psychiatric Psychiatric: Denies anxiety, depression or suicidal thoughts Endocrine Endocrinology: Denies polydipsia, polyphagia or polyuria Hematologic/Lymphatic Hematologic/Lymphatic: Denies easy bleeding, easy bruising or lymphadenopathy Allergic/Immunologic Allergic/Immunologic ED: Denies mouth swelling, tongue swelling or urticaria EXAM Physical Exam Const Vital Signs: 02/08/23 11:06 Temperature 96 F L Temperature Source Temporal Pulse Rate 83 Respiratory Rate 20 H Blood Pressure 149/90 H Blood Pressure Mean 109 Pulse Ox 100 Oxygen Delivery Method Room Air Positive well nourished and well developed General Appearance ED: well developed and NAD HEENT Reports TM's clear and moist mucous membranes normocephalic and atraumatic; Negative for trauma or tenderness Tympanic Membrane ED: Yes TM's clear Eyes PERRL and EOMs intact bilaterally General Eye ED: Negative for pale conjunctiva or scleral icterus Neck no lymphadenopathy, supple and no JVD General: Negative for tenderness Chest Wall inspection of chest normal and palpation of chest normal Chest: Negative for tenderness Resp normal respiratory effort and clear to auscultation bilaterally Effort and Inspection: Negative for respiratory distress or pain with movement Auscultation: Negative for rhonchi, wheezes or diminished lung sounds Cardio regular rate, regular rhythm, S1 normal heart sound, S2 normal heart sound and no murmurs Peripheral Pulses: pulses 2+ throughout GI normal to inspection, nondistended, normoactive bowel sounds, soft to palpation, non-distended and no masses GI Narrative: Patient with diffuse tenderness to the abdomen. There is guarding. She really does not allow deep palpation of the abdomen. Patient exam difficult due to body habitus. No masses palpated. Back/Spine no CVA tenderness and no thoracic nor lumbar tenderness Extremity normal to inspection General Extremety ED: Negative for edema General Extremity: Negative for edema Neuro oriented x3, CN's II-XII intact bilaterally, no sensory deficits noted and gait normal Sensorium / Orientation: awake, alert, oriented to person, oriented to place and oriented to time Motor Exam: strength 5/5 throughout and strength abnormal Psych mental status grossly normal Skin no rashes or lesions noted and no wounds MDM MDM MDM Narrative Medical decision making narrative: Patient presents with vomiting and abdominal pain for over a month. Patient's had prior evaluation in the emergency department for this. Apparently had a CT scan of the abdomen pelvis 3 weeks ago that was essentially unremarkable. IV line will be established. Patient will be medicated with Zofran and Bentyl and I did explain that I would not be giving her narcotics for an unverifiable pain. BC with differential that was normal. Chemistries unremarkable. LFTs were normal. Lipase normal. Urinalysis normal. hCG was negative. Patient was given initially Zofran and Bentyl. She continued to complain of nausea and was given Reglan and Pepcid. At this point etiology of her abdominal pain and nausea and vomiting unclear. Patient will be referred to gastroenterology for follow-up. She wanted something for constipation for home and I advised her to take MiraLAX. CT scan of her abdomen pelvis was essentially unremarkable. Lab Data Attestation: I reviewed the patient's lab results. Labs: Laboratory Results - last 24 hr 02/08/23 02/08/23 12:30 14:35 WBC 9.1 RBC 5.27 Hgb 13.9 Hct 42.8 MCV 81.2 MCH 26.4 L MCHC 32.5 RDW Std Deviation 39.1 RDW Coeff of John 13.3 Plt Count 394 MPV 9.3 Immature Gran % (Auto) 0.800 Neut % (Auto) 77.0 H Lymph % (Auto) 18.[address] % (Auto) 3.6 Eos % (Auto) 0.0 Baso % (Auto) 0.2 Absolute Neuts (auto) 7.0 Absolute Lymphs (auto) 1.67 Nucleated RBC % 0 Sodium 134 L Potassium 3.7 Chloride 96 L Carbon Dioxide 30.0 Anion Gap 8 BUN 9 Creatinine 1.22 H Estim Creat Clear Calc 62.55 Est GFR (MDRD) Af Amer 66 Est GFR (MDRD) Non-Af 55 L BUN/Creatinine Ratio 7.4 L Glucose 325 H Calcium 9.7 Total Bilirubin 0.70 AST 15 ALT 24 Alkaline Phosphatase 105 Total Protein 9.2 H Albumin 3.8 Globulin 5.4 H Albumin/Globulin Ratio 0.7 L Lipase 38 Serum , Qual NEGATIVE Urine Color Yellow Urine Clarity Sl. Cloudy Urine pH 8.0 Ur Specific [place] 1.010 Urine Protein 30 H Urine Glucose (UA) 1000 H Urine Ketones 50 H Urine Occult Blood Negative Urine Nitrite Negative Urine Bilirubin Negative Urine Urobilinogen Normal Ur Leukocyte Esterase 25 H Urine RBC 0 SEEN Urine WBC 0-5 SEEN Ur Squamous Epith Cells 0-5 SEEN Amorphous Sediment 3+ PHOS Urine Bacteria 0 SEEN Urine Mucus 0 SEEN Radiography Diagnostic Testing: Clinical Impression(s) from Imaging Studies Abdomen/Pelvis CT 02/08/23 12:16 IMPRESSION: Small left ovarian cyst. Sigmoid diverticulosis. Electronically Signed: Bernard Sadler MD at 14:47 EDT , EKG Initial EKG: Attestation: I personally reviewed and interpreted this EKG as follows: Comments: Sinus rhythm with a rate of 76 bpm with no acute ST segment changes Discharge Plan Triage Chief Complaint: Abd Pain ED Provider: Javy Doss Dx/Rx/DC Orders Clinical Impression: Abdominal pain, Vomiting Instructions: ED Abdominal Pain Unkn Cause Fem, ED Vomiting (Adult) Prescriptions: New lansoprazole [Prevacid] 30 mg capsule,delayed release(DR/EC) 30 mg PO DAILY Qty: 14 0RF ondansetron 4 mg tablet,disintegrating 4 mg PO Q8H PRN PRN (Reason: Nausea) Qty: 10 0RF dicyclomine 10 mg capsule 20 mg PO TIDAC Qty: 20 0RF No Action albuterol sulfate [Ventolin HFA] 90 mcg/actuation HFA aerosol inhaler 1 inh INHALATION Q4H metformin 500 mg tablet 1,000 mg PO BID Hold Instructions: Resume on 01/20/23. Hold until nausea, vomiting, oral intake improve insulin glargine [Lantus Solostar U-100 Insulin] 100 unit/mL (3 mL) insulin pen 15 unit SUBCUT BID Patient Comments: inject 20 units subcutaneous twice daily scopolamine base 1 mg over 3 days patch 3 day 1 patch transdermal Q3D PRN (Reason: nausea and vomiting) Qty: 4 0RF bisacodyl [Dulcolax (bisacodyl)] 10 mg suppository 10 mg NE DAILY 3 Days Qty: 12 0RF Rx Instructions: Hold for diarrhea hyoscyamine sulfate [Levsin/SL] 0.125 mg tablet, sublingual 0.125 mg PO TID PRN (Reason: abdominal pain) Qty: 10 0RF ondansetron 4 mg tablet,disintegrating 4 mg PO Q8H PRN PRN (Reason: Nausea) Qty: 10 0RF promethazine 25 mg tablet 25 mg PO TID PRN (Reason: nausea and vomiting) Qty: 20 0RF trazodone 300 mg tablet 300 mg PO QHS Patient Comments: take 1 tablets 30 minutes before bedtime omeprazole 40 mg capsule,delayed release(DR/EC) 40 mg PO BID Qty: 60 2RF Rx Instructions: take two times a day for 8 weeks then once a day [facility] Referrals: Venkatesh Torres DO [Med Staff - Active Staff] - 3-5 Days [facility] [Primary Care Provider] - Disposition Disposition: Home, Self Care
[2023-02-08] MEDS: 0.9% Normal Saline 1,000 ML 1000 ML IV (12:31)
[2023-02-08] MEDS: Ondansetron 4 MG/2 ML Vial IV (12:31)
[2023-02-08] MEDS: Dicyclomine 20 MG/2 ML Vial IM (12:32)
[2023-02-08 12:43] LABS: Absolute Lymphocyte Count 1.67 X10^3/uL (0.83-4.51); Basophil# 0.02 X10^3/uL; Basophil% 0.2 % (0-1); Hematocrit 42.8 % (37-47); Hemoglobin 13.9 g/dL (12.0-15.0); Lymphocyte # 1.67 X10^3/ul (0.83-4.51); Lymphocyte % 18.4 % (19-41); Mean Corp Hgb Conc 32.5 g/dL (32-36); Mean Corpuscular Hgb 26.4 pg (27.0-32.0); Mean Corpuscular Volume 81.2 fL (81-99); Mean Platelet Vol. 9.3 fl (6.2-12.0); Monocyte# 0.33 X10^3/uL; Monocyte% 3.6 % (0-10); NRBC Flagged by Analyzer 0 % (0-5); Neutrophil # 7.01 X10^3/uL (2.7-7.7); Platelet Count 394 K/mm3 (150-450); RBC Distribution Width CV 13.3 % (11.6-14.6); RBC Distribution Width SD 39.1 fl (35.1-43.9); Red Blood Count 5.27 M/mm3 (4.2-5.4); White Blood Count 9.1 K/mm3 (4.4-11.0)
[2023-02-08 13:01] LABS: Internal QC Validated? YES +Cl - CLEAR BKGD; Pregnancy, Serum, hCG Quali. NEGATIVE Negative
[2023-02-08 13:14] LABS: ALB/GLOB Ratio 0.7 RATIO (0.9-2.4); AST(SGOT) 15 U/L (15-37); Alanine Aminotransfer ALT/SGPT 24 U/L (13-56); Albumin, Serum 3.8 g/dL (3.2-5.0); Alkaline Phosphatase 105 U/L (45-117); Anion Gap 8 (5-15); BUN 9 mg/dL (7-18); BUN/Creat Ratio 7.4 RATIO (10-20); Calcium,Total 9.7 mg/dL (8.5-10.1); Chloride 96 mmol/L (98-107); Creatinine, Serum 1.22 mg/dL (0.55-1.02); EST Glomerular Filtration Rate 55 mL/min (>60); Est Glom Filt Rate - Afr Amer 66 mL/min (>60); Estimated Creatinine Clearance 62.55 ml/min; Globulin 5.4 g/dL (2.2-4.2); Glucose 325 mg/dL (74-106); Lipase 38 U/L (13-75); Potassium 3.7 mmol/L (3.5-5.1); Protein, Total 9.2 g/dL (6.4-8.2); Sodium Level 134 mmol/L (136-145)
[2023-02-08 14:50] LABS: Bacteria 0 SEEN /hpf (None Seen); Mucous, Urine 0 SEEN /hpf (<or=2+); Red Blood Cells-Urine 0 SEEN /hpf (0-5)
[2023-02-08 15:05] LABS: Color, Urine Yellow (Yellow); Glucose, Dipstick 1000 mg/dl (Normal); Ketone-Dipstick 50 mg/dl (Negative); Leukocyte Esterase-Dipstick 25 /ul (Negative); Nitrite-Dipstick Negative (Negative); Occult Blood-Urine Negative /ul (Negative); Protein-Dipstick 30 mg/dl (Negative); Urine Bilirubin Dipstick Negative (Negative); Urine Clarity Sl. Cloudy (Clear); Urine Urobilinogen Normal (Normal)
[2023-02-08 15:22] LABS: Amorphous Sediment 3+ PHOS; Squamous Epithelial Cells - UA 0-5 SEEN /hpf (5-10); White Blood Cells 0-5 SEEN /hpf (0-5)
[2023-02-08] MEDS: Metoclopramide 10 MG/2 ML Vial IV (15:40)
[2023-02-08] MEDS: Famotidine 200 MG/20 ML MDV 20 MG in 0.9% Normal Saline (Pres. free 8 ML 300 MG IV (15:41)
[2023-02-08 15:46] VITALS: PULSE 97; RESP 21; O2SAT 96
== END 2023-02-08 15:48 | disposition home or self-care (01) ==
PROVIDERS: Emergency Provider Emergency Medicine; Visit Provider Emergency Medicine
DX: R10.9 Unspecified abdominal pain (principal); E11.42 Type 2 diabetes mellitus with diabetic polyneuropathy; Z79.4 Long term (current) use of insulin; R11.2 Nausea with vomiting, unspecified; I10 Essential (primary) hypertension; J45.909 Unspecified asthma, uncomplicated; Z79.899 Other long term (current) drug therapy; Z79.84 Long term (current) use of oral hypoglycemic drugs; F17.210 Nicotine dependence, cigarettes, uncomplicated
CPT/HCPCS: 74177; 80053; 81001; 83690; 84703; 85025; 93005; 96361; 96374; 96375; 99283; J7030; Q9967; A4216; J2405; J3490

== ENCOUNTER 2023-02-24 11:31 | Emergency (ER) | payer MEDICAID, SELFPAY ==
[2023-02-24 11:32] VITALS: BP 140/98; PULSE 117; RESP 18; TEMP 36.6; O2SAT 100; BMI 32.4
--- NOTE | 2023-02-24 11:41 | EDS_ITS ---
HPI History of Present Illness Chief Complaint: Abscess [facility] Medical History Anxiety Asthma Constipation Depression Diabetes mellitus with diabetic polyneuropathy Elevated serum creatinine Failure of outpatient treatment Hypertension Type 2 diabetes mellitus with foot ulcer Home Medications albuterol sulfate 90 mcg/actuation aerosol inhaler (Ventolin HFA) 1 inh inhalation Q4H SOB 04/06/22 [History Last Taken 06/24/22] metformin 500 mg tablet 1,000 mg PO BID DM 06/24/22 [History Last Taken 06/24/22] insulin glargine 100 unit/mL (3 mL) subcutaneous pen (Lantus Solostar U-100 Insulin) 15 unit subcut BID diabetes 08/12/22 [History Last Taken Unknown] hyoscyamine sulfate 0.125 mg sublingual tablet (Levsin/SL) 0.125 mg PO TID PRN abdominal pain #10 tabs 01/07/23 [Rx Last Taken Unknown] ondansetron 4 mg disintegrating tablet 4 mg PO Q8H PRN PRN Nausea #10 tabs 01/07/23 [Rx Last Taken Unknown] promethazine 25 mg tablet 25 mg PO TID PRN nausea and vomiting #20 tabs 01/09/23 [Rx Last Taken Unknown] trazodone 300 mg tablet 300 mg PO QHS 01/12/23 [History Last Taken Unknown] bisacodyl 10 mg rectal suppository (Dulcolax (bisacodyl)) 10 mg [place] DAILY 3 days #12 ea 01/15/23 [Rx Last Taken Unknown] scopolamine base 1 mg over 3 days transdermal patch 1 patch transdermal Q3D PRN nausea and vomiting #4 ea 01/15/23 [Rx Last Taken Unknown] omeprazole 40 mg capsule,delayed release 40 mg PO BID #60 caps 01/19/23 [Rx Last Taken Unknown] dicyclomine 10 mg capsule 20 mg (2 x 10 mg) PO TIDAC #20 CAPSULES 02/08/23 [Rx Last Taken Unknown] lansoprazole 30 mg capsule,delayed release (Prevacid) 30 mg PO DAILY #14 caps 02/08/23 [Rx Last Taken Unknown] ondansetron 4 mg disintegrating tablet 4 mg PO Q8H PRN PRN Nausea #10 tabs 02/08/23 [Rx Last Taken Unknown] sulfamethoxazole 800 mg-trimethoprim 160 mg tablet (Bactrim DS) 1 tab PO BID 7 days #14 tabs 02/24/23 [Rx Last Taken Unknown] Allergy/AdvReac Type Severity Reaction Status Date / Time No Known Allergies Allergy Verified 02/24/23 11:34 Family History Other Bleeding disorder Cancer Diabetes Hypertension Surgical History Hx of foot surgery Social History Smoking Status: Current every day smoker tobacco type: cigarettes alcohol intake: never substance use type: does not use what type of physical activity do you participate in: none EXAM Physical Exam Const Vital Signs: 02/24/23 11:32 02/24/23 12:55 Temperature 97.8 F Temperature Source Temporal Pulse Rate 117 H 85 Respiratory Rate 18 18 Blood Pressure 140/98 H 124/93 H Blood Pressure Mean 112 103 Pulse Ox 100 96 Oxygen Delivery Method Room Air Room Air MDM MDM MDM Narrative Medical decision making narrative: HISTORY OF PRESENT ILLNESS: 33-year-old female here with concern for foot infection. Notes she has a history of diabetes. Notes history of amputation. States she has severe pain. NOtes no trauma. no fever. notes chronic nausea/vomiting. Patient notes she was recent prescribed Bactrim for similar issues however she is been having nausea vomiting cannot tolerate antibiotics by mouth. REVIEW OF SYSTEMS: Pertinent positives: Toe pain, nausea vomiting Pertinent negatives: Fever, decreased sensation PHYSICAL EXAM: Nursing triage notes reviewed, Vital signs reviewed Constitutional: please see mdm HENT: MMM Eyes: Pupils equal round and reactive to light, Extraocular muscles intact Neck: No stridor, no JVD, full neck ROM Lungs: Clear to auscultation, No wheezing or rales. No increased work of breathing, no conversational dyspnea, no accessory muscle use, no nasal flaring. No respiratory distress noted Heart: Regular rate and rhythm, No murmurs, No rubs and No gallops, 2+ distal pulses (radial, femoral, posterior tibial) in all extremities : No CVAT Extremities: No edema Neuro: Intact sensation L1-S1 dermatomal distributions. Intact 5/5 strength in hip flexion (T12-L3). Knee extension (L2-L4). Ankle dorsiflexion (L4-L5). Ankle plantar flexion (S1). Great toe extension (L5). 2+ patellar and Achilles DTRs. Skin: Erythema noted over the distal fourth digit of the right foot, no crepitus or bullae, toenail is intact is not ingrown, MEDICAL DECISION MAKING: Chief Complaint: Toe pain, toe infection External records reviewed: Prior ED record reviewed: Seen for abdominal pain on 02/08/2023 Factors affecting care: Type 2 diabetes Social determinants of health: Current everyday smoker History obtained from others: none Consults: none ALL IMAGES (IF OBTAINED) HAVE BEEN PERSONALLY REVIEWED AND INTERPRETED BY MYSELF. Please see below MDM Narrative: Patient was initially tachycardic otherwise hemodynamically stable afebrile and nontoxic-appearing. I considered the following differential diagnosis: Osteomyelitis, arterial occlusion, fracture dislocation, paronychia, ingrown toenail, cellulitis, necrotizing fasciitis Patient was initially tachycardic otherwise hemodynamically stable afebrile and nontoxic-appearing. Exam without crepitus bullae or signs of necrotizing fasciitis. No evidence of paronychia. Exam with redness over the distal tip of the right fourth digit, prior amputation site was clean dry intact no crepitus bullae fluctuance or induration. Toe nail was intact and not signs of an ingrown toenail. There is no obvious paronychia noted. Obtain an x-ray to rule out any bony abnormality such as fracture dislocation or signs of osteomyelitic changes. Gave IM Phenergan, IM Toradol and attempt control her nausea vomiting so she could tolerate p.o. antibiotics. Gave p.o. antibiotics here. X-ray without evidence of osteomyelitis. X-ray was negative. Patient is able to tolerate p.o.'s appropriate for discharge home. The patient and/or family, caregivers express understanding. The patient and/or family, caregivers agrees with the plan. Shared decision making: I will have a discussion with the patient and or visitors regarding risk/benefits of further testing or admission. They will be made aware of of the risk/benefits inherent in this decision they will be given the opportunity to voice understanding. Total critical care time today provided was at least 0 minutes. This excludes separately billable procedures. Critical care time (if documented) is secondary to the patient having high probability of clinically significant/life threatening deterioration in the patient's condition which required my urgent intervention. Radiography Chest X-Ray - ED: Read by ED Physician Diagnostic Testing: Clinical Impression(s) from Imaging Studies Toe X-Ray 02/24/23 12:11 IMPRESSION: Soft tissue swelling and air seen within the soft tissues as described. No bony destruction is seen. 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 Electronically Signed: Bernard Sadler MD at 12:39 EDT , X-ray was read interpreted by myself. No obvious evidence of bony abnormalities noted. No fracture, no dislocation no signs of bony destruction suggestive of osteomyelitis by my read. Discharge Plan Triage Chief Complaint: Abscess ED Provider: Tim Vidal Dx/Rx/DC Orders Clinical Impression: History of diabetes mellitus, type II, Cellulitis of fourth toe of right foot Instructions: Cellulitis Dc Prescriptions: New sulfamethoxazole-trimethoprim [Bactrim DS] 800-160 mg tablet 1 tab PO BID 7 Days Qty: 14 0RF No Action albuterol sulfate [Ventolin HFA] 90 mcg/actuation HFA aerosol inhaler 1 inh INHALATION Q4H metformin 500 mg tablet 1,000 mg PO BID Hold Instructions: Resume on 01/20/23. Hold until nausea, vomiting, oral intake improve insulin glargine [Lantus Solostar U-100 Insulin] 100 unit/mL (3 mL) insulin pen 15 unit SUBCUT BID Patient Comments: inject 20 units subcutaneous twice daily scopolamine base 1 mg over 3 days patch 3 day 1 patch transdermal Q3D PRN (Reason: nausea and vomiting) Qty: 4 0RF bisacodyl [Dulcolax (bisacodyl)] 10 mg suppository 10 mg [place] DAILY 3 Days Qty: 12 0RF Rx Instructions: Hold for diarrhea hyoscyamine sulfate [Levsin/SL] 0.125 mg tablet, sublingual 0.125 mg PO TID PRN (Reason: abdominal pain) Qty: 10 0RF ondansetron 4 mg tablet,disintegrating 4 mg PO Q8H PRN PRN (Reason: Nausea) Qty: 10 0RF promethazine 25 mg tablet 25 mg PO TID PRN (Reason: nausea and vomiting) Qty: 20 0RF trazodone 300 mg tablet 300 mg PO QHS Patient Comments: take 1 tablets 30 minutes before bedtime lansoprazole [Prevacid] 30 mg capsule,delayed release(DR/EC) 30 mg PO DAILY Qty: 14 0RF ondansetron 4 mg tablet,disintegrating 4 mg PO Q8H PRN PRN (Reason: Nausea) Qty: 10 0RF dicyclomine 10 mg capsule 20 mg PO TIDAC Qty: 20 0RF omeprazole 40 mg capsule,delayed release(DR/EC) 40 mg PO BID Qty: 60 2RF Rx Instructions: take two times a day for 8 weeks then once a day Primary Care Provider: [facility] Referrals: Yordan Meadows DPM [Med Staff - Active Staff] - [facility] [Primary Care Provider] - Activity Restrictions/Additional Instructions: Thank you for trusting us with your care today! Please take Tylenol (2 pills, 650 mg), ibuprofen (2 pills, 400 mg) every 6 hours as needed for pain and fever control. Please take antibiotics as prescribed. Please complete entire course. Please return to the emergency department if your symptoms change or worsen. Specifically develop vomiting antibiotics by mouth. Develop worsening redness, pain, blisters. If you develop fever chills or feel more ill in any way. Please follow with your primary care physician, podiatry for further outpatient evaluation and management. Disposition Disposition: Home, Self Care Discharge Date/Time: 02/24/23 13:23
[2023-02-24] MEDS: proMETHazine 25 MG/ML Syringe IM (12:04)
[2023-02-24] MEDS: Ketorolac 15 MG/ML Vial IM (12:04)
--- NOTE | 2023-02-24 12:11 | RAD_ITS ---
STUDY: X-RAY RIGHT FOOT, FOURTH TOE REASON FOR EXAM: Female, 33 years old. 4th digit infection r/o osteomyelitis TECHNIQUE: 3 view(s) of the toe were obtained. COMPARISON: Comparison is made with prior study dated June 26, 2022. FINDINGS: The patient is status post partial amputation of the fifth metatarsal and fifth toe. Normal metatarsophalangeal (M.T.P) joint. Normal interphalangeal joints. Normal phalanges and interphalangeal joints. Soft tissue swelling. Small amount of gas is seen within the plantar soft tissues overlying the distal portion of the second metatarsal as well as between the third and fourth proximal phalanges. RAD/Toe(s) Min 2 Views IMPRESSION: Soft tissue swelling and air seen within the soft tissues as described. No bony destruction is seen. 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 Electronically Signed: Bernard Sadler MD at 12:39 EDT ,
[2023-02-24 12:55] VITALS: BP 124/93; PULSE 85; RESP 18; O2SAT 96
[2023-02-24] MEDS: Smz/Tmp Ds Tablet 1 TABLET PO (13:19)
== END 2023-02-24 13:23 | disposition home or self-care (01) ==
PROVIDERS: Emergency Provider Emergency Medicine; Visit Provider Emergency Medicine
DX: L03.031 Cellulitis of right toe (principal); E11.40 Type 2 diabetes mellitus with diabetic neuropathy, unspecified; F17.210 Nicotine dependence, cigarettes, uncomplicated; I10 Essential (primary) hypertension; R11.2 Nausea with vomiting, unspecified; J45.909 Unspecified asthma, uncomplicated
CPT/HCPCS: 73660; 96372; 99283

== ENCOUNTER 2023-02-25 23:58 | Emergency (ER) | payer MEDICAID, SELFPAY ==
[2023-02-25 23:59] VITALS: BP 124/101; PULSE 118; RESP 22; TEMP 36.6; O2SAT 97; BMI 31.8
[2023-02-26] MEDS: Morphine 4 MG/ML Syringe IV (01:10)
[2023-02-26] MEDS: 0.9% Normal Saline 1,000 ML 999 ML IV (01:10)
[2023-02-26] MEDS: Ondansetron 4 MG/2 ML Vial IV (01:10)
[2023-02-26 01:16] LABS: Absolute Lymphocyte Count 2.45 X10^3/uL (0.83-4.51); Absolute Neutrophil Count 12.3 X10^3/uL (2.0-7.7); Basophil# 0.06 X10^3/uL; Basophil% 0.4 % (0-1); Eosinophil# 0.02 X10^3/uL; Eosinophils% 0.1 % (0-5); Hematocrit 40.2 % (37-47); Hemoglobin 13.3 g/dL (12.0-15.0); Lymphocyte # 2.45 X10^3/ul (0.83-4.51); Lymphocyte % 15.1 % (19-41); Mean Corp Hgb Conc 33.1 g/dL (32-36); Mean Corpuscular Hgb 26.8 pg (27.0-32.0); Mean Corpuscular Volume 80.9 fL (81-99); Mean Platelet Vol. 9.1 fl (6.2-12.0); NRBC Flagged by Analyzer 0 % (0-5); Neutrophil # 12.32 X10^3/uL (2.7-7.7); Neutrophil % 75.8 % (47-70); Platelet Count 483 K/mm3 (150-450); RBC Distribution Width CV 13.2 % (11.6-14.6); RBC Distribution Width SD 38.7 fl (35.1-43.9); Red Blood Count 4.97 M/mm3 (4.2-5.4); White Blood Count 16.2 K/mm3 (4.4-11.0)
[2023-02-26 01:27] LABS: Internal QC Validated? YES +Cl - CLEAR BKGD; Pregnancy, Serum, hCG Quali. NEGATIVE Negative
--- NOTE | 2023-02-26 01:31 | CT_ITS ---
EXAM: CT ABDOMEN AND PELVIS WITH INTRAVENOUS CONTRAST CLINICAL INDICATION: abd pain TECHNIQUE: Helically acquired images were obtained of the abdomen and pelvis with intravenous contrast. This CT exam was performed using one or more of the following dose reduction techniques: automated exposure control, adjustment of the mA and/or kV according to patient size, and/or use of iterative reconstruction technique. CONTRAST: IV 100mL Isovue-300 RADIATION DOSE: CTDIvol = 14.99 mGy, DLP = 1126.53 mGy-cm COMPARISON: CT abdomen pelvis 02/08/2023 and 01/23/2022 FINDINGS: LOWER THORAX: Unremarkable. Lung bases are clear. No cardiomegaly. No significant pericardial effusion. ABDOMEN: LIVER: Unremarkable. Homogeneous. No focal mass. GALLBLADDER AND BILE DUCTS: Unremarkable. No calcified gallstones. No gallbladder distention or wall edema. No intra- or extrahepatic biliary ductal dilation. PANCREAS: Unremarkable. No focal cystic or solid mass. SPLEEN: Unremarkable. Normal size without focal cystic or solid mass. ADRENALS: Unremarkable. No nodules. KIDNEYS AND URETERS: Unremarkable. Normal renal size and position. No hydronephrosis. STOMACH AND BOWEL: Some mild wall thickening and inflammation of the rectum with a moderate amount of stool in the distal sigmoid colon. No stomach or bowel distention. PELVIS: APPENDIX: The appendix is normal. BLADDER: Unremarkable. REPRODUCTIVE: Tubular fluid containing structure in the left adnexa consistent with hydrosalpinx, unchanged compared with multiple prior exams. ABDOMEN and PELVIS: INTRAPERITONEAL SPACE: Unremarkable. No ascites or other fluid collection. No free air. BONES/JOINTS: Unremarkable. No suspicious lytic or blastic abnormality. SOFT TISSUES: Unremarkable. No discrete abdominal or pelvic wall hernia. VASCULATURE: Unremarkable. Abdominal aorta is non-dilated. LYMPH NODES: Unremarkable. No enlarged lymph nodes. CT/Abdomen/Pelvis W IV Cont ONLY IMPRESSION: Some mild wall thickening and inflammation of the rectum with a moderate amount of stool in the distal sigmoid colon. Findings may indicate an infectious or inflammatory proctitis. Follow-up is recommended to ensure resolution. Electronically Signed: Jamshid Mccormick MD at 2:42 EDT ,
[2023-02-26 01:34] LABS: AST(SGOT) 12 U/L (15-37); Alanine Aminotransfer ALT/SGPT 17 U/L (13-56); Albumin, Serum 3.6 g/dL (3.2-5.0); Alkaline Phosphatase 108 U/L (45-117); Anion Gap 11 (5-15); BUN 20 mg/dL (7-18); BUN/Creat Ratio 13.2 RATIO (10-20); Bilirubin, Direct 0.22 mg/dL (0.00-0.30); Calcium,Total 9.8 mg/dL (8.5-10.1); Chloride 98 mmol/L (98-107); Creatinine, Serum 1.52 mg/dL (0.55-1.02); EST Glomerular Filtration Rate 42 mL/min (>60); Est Glom Filt Rate - Afr Amer 51 mL/min (>60); Globulin 5.7 g/dL (2.2-4.2); Glucose 271 mg/dL (74-106); Lipase 64 U/L (13-75); Potassium 3.4 mmol/L (3.5-5.1); Protein, Total 9.3 g/dL (6.4-8.2); Sodium Level 131 mmol/L (136-145)
[2023-02-26 02:00] VITALS: BP 139/8; PULSE 85; RESP 16; O2SAT 100
[2023-02-26 02:38] LABS: Mucous, Urine 0 SEEN /hpf (<or=2+); Red Blood Cells-Urine 0 SEEN /hpf (0-5)
[2023-02-26 02:41] LABS: Color, Urine Yellow (Yellow); Glucose, Dipstick 100 mg/dl (Normal); Ketone-Dipstick 15 mg/dl (Negative); Leukocyte Esterase-Dipstick 25 /ul (Negative); Nitrite-Dipstick Negative (Negative); Occult Blood-Urine 10 /ul (Negative); Protein-Dipstick 30 mg/dl (Negative); Urine Bilirubin Dipstick Negative (Negative); Urine Clarity Clear (Clear); Urine Urobilinogen Normal (Normal)
[2023-02-26 02:48] LABS: Bacteria RARE /hpf (None Seen); Squamous Epithelial Cells - UA 0-5 SEEN /hpf (5-10); Transitional Epithelial - Ur 0-5 SEEN /hpf (0-5); White Blood Cells 0-5 SEEN /hpf (0-5)
[2023-02-26] MEDS: Haloperidol Lactate 5 MG/ML Vial IV (02:52)
--- NOTE | 2023-02-26 03:20 | EDS_ITS ---
HPI History of Present Illness Chief Complaint: Abd Pain Informant: patient and spouse/S.O. Narrative Narrative: Patient is a 33-year-old female who has been seen in the ER multiple times secondary to chronic abdominal pain. Her most recent visit was approximately 2 weeks ago where she had a CT scan of her abdomen pelvis which revealed no acute findings. Patient states that her pain has been chronic for approximately 3 months and has persisted despite stopping marijuana use. She states in the last 1 to 2 days the pain is worsened and she has developed bouts of nausea with vomiting and secondary to the worsening pain comes in for evaluation. [facility] Medical History Anxiety Asthma Constipation Depression Diabetes mellitus with diabetic polyneuropathy Elevated serum creatinine Failure of outpatient treatment Hypertension Type 2 diabetes mellitus with foot ulcer Home Medications albuterol sulfate 90 mcg/actuation aerosol inhaler (Ventolin HFA) 1 inh inhalation Q4H SOB 04/06/22 [History Last Taken 06/24/22] metformin 500 mg tablet 1,000 mg PO BID DM 06/24/22 [History Last Taken 06/24/22] insulin glargine 100 unit/mL (3 mL) subcutaneous pen (Lantus Solostar U-100 Insulin) 15 unit subcut BID diabetes 08/12/22 [History Last Taken Unknown] hyoscyamine sulfate 0.125 mg sublingual tablet (Levsin/SL) 0.125 mg PO TID PRN abdominal pain #10 tabs 01/07/23 [Rx Last Taken Unknown] ondansetron 4 mg disintegrating tablet 4 mg PO Q8H PRN PRN Nausea #10 tabs 01/07/23 [Rx Last Taken Unknown] promethazine 25 mg tablet 25 mg PO TID PRN nausea and vomiting #20 tabs 01/09/23 [Rx Last Taken Unknown] trazodone 300 mg tablet 300 mg PO QHS 01/12/23 [History Last Taken Unknown] bisacodyl 10 mg rectal suppository (Dulcolax (bisacodyl)) 10 mg VA DAILY 3 days #12 ea 01/15/23 [Rx Last Taken Unknown] scopolamine base 1 mg over 3 days transdermal patch 1 patch transdermal Q3D PRN nausea and vomiting #4 ea 01/15/23 [Rx Last Taken Unknown] omeprazole 40 mg capsule,delayed release 40 mg PO BID #60 caps 01/19/23 [Rx Last Taken Unknown] dicyclomine 10 mg capsule 20 mg (2 x 10 mg) PO TIDAC #20 CAPSULES 02/08/23 [Rx Last Taken Unknown] lansoprazole 30 mg capsule,delayed release (Prevacid) 30 mg PO DAILY #14 caps 02/08/23 [Rx Last Taken Unknown] ondansetron 4 mg disintegrating tablet 4 mg PO Q8H PRN PRN Nausea #10 tabs 02/08/23 [Rx Last Taken Unknown] sulfamethoxazole 800 mg-trimethoprim 160 mg tablet (Bactrim DS) 1 tab PO BID 7 days #14 tabs 02/24/23 [Rx Last Taken Unknown] amoxicillin 875 mg-potassium clavulanate 125 mg tablet 1 tab PO BID 7 days #14 tabs 02/26/23 [Rx Last Taken Unknown] hydrocodone-acetaminophen 5-325mg 5mg-325mg 1 tab PO Q6H PRN PRN Pain 3 days #12 TABLETS 02/26/23 [Rx Last Taken Unknown] ondansetron 4 mg disintegrating tablet 4 mg PO TID PRN nausea and vomiting #21 tabs 02/26/23 [Rx Last Taken Unknown] polyethylene glycol 3350 17 gram/dose oral powder (Miralax) 17 g PO DAILY PRN constipation #510 grams 02/26/23 [Rx Last Taken Unknown] Allergy/AdvReac Type Severity Reaction Status Date / Time No Known Allergies Allergy Verified 02/25/23 23:58 Family History Other Bleeding disorder Cancer Diabetes Hypertension Surgical History Hx of foot surgery Social History Smoking Status: Current every day smoker tobacco type: cigarettes alcohol intake: never substance use type: does not use what type of physical activity do you participate in: none ROS ROS ED Constitutional Constitutional ED: Denies chills or fever(s) Eyes Eyes: Denies change in vision ENT ENT ED: Denies sore throat Cardiovascular Cardiovascular: Denies chest pain Respiratory/Chest Respiratory/Chest: Denies cough or dyspnea Gastrointestinal Gastrointestinal: Reports abdominal pain, constipation, nausea and vomiting; Denies diarrhea Genitourinary Genitourinary ED: Denies dysuria or hematuria Musculoskeletal Musculoskeletal: Denies back pain or myalgias Integumentary Denies rash Neurologic Neurologic: Denies headache(s) Hematologic/Lymphatic Hematologic/Lymphatic: Denies easy bleeding or easy bruising EXAM Physical Exam Const Vital Signs: 02/25/23 23:59 02/26/23 02:00 02/26/23 03:54 Temperature 98 F Temperature Source Temporal Pulse Rate 118 H 85 68 Respiratory Rate 22 H 16 15 Blood Pressure 124/101 H 139/8 H 107/63 Blood Pressure Mean 108 51 Pulse Ox 97 100 97 Oxygen Delivery Method Room Air Room Air Positive well nourished, well developed and obese General Appearance ED: well developed Nutritional Appearance: obese HEENT Reports moist mucous membranes HEENT Narrative: No signs of infection noted in the posterior pharynx Eyes PERRL and EOMs intact bilaterally General Eye ED: Negative for scleral icterus Neck supple Neck Narrative: No nuchal rigidity or meningeal signs Resp normal respiratory effort and clear to auscultation bilaterally Cardio regular rate and regular rhythm Rate: other Other Details: Radial and carotid pulses are equal and symmetric GI non-distended GI Narrative: Abdomen is soft and nondistended with hypoactive bowel sounds. There is mild diffuse pain with palpation. No voluntary guarding or rigidity. No pulsatile mass Auscultation: hypoactive bowel sounds Palpation: soft Extremity normal to inspection Neuro oriented x3, CN's II-XII intact bilaterally and no sensory deficits noted Sensorium / Orientation: alert Motor Exam: strength 5/5 throughout Psych Psych Narrative: Patient has a nervous/anxious affect Skin no rashes or lesions noted General Skin Exam: Negative for jaundice MDM MDM MDM Narrative Medical decision making narrative: Patient presented to the ER afebrile with a soft nonsurgical abdomen. Chart review revealed that her CT scan from approximately 2 weeks ago revealed diverticulosis without diverticulitis and a small ovarian cyst but otherwise no clinically significant change. Differential diagnosis is acute exacerbation of chronic abdominal pain versus pancreatitis versus biliary colic versus colitis or urinary tract infection. Patient blood work was obtained as well as urine sample. Urine showed no sign of infection and lab work revealed hyperglycemia consistent with diabetes but no signs of DKA. Her white count is elevated however at 16.2 and while I feel this is most likely stress response from her bouts of vomiting at her last visit roughly 2 weeks ago her white count was normal. Therefore I did elect to repeat a CT scan of her abdomen pelvis. This showed constipation which she reports but also proctitis. As this could be infectious or inflammatory and the patient is a diabetic I do feel this is infection until proven otherwise and therefore I will start the patient on antibiotic. However if she does not have signs of DKA or septicemia or acute kidney injury she can be discharged home. History & Record Review Discussion w/independent historian: Patient and Significant other Lab Data Attestation: I reviewed the patient's lab results. Labs: Laboratory Results - last 24 hr 02/26/23 02/26/23 01:11 02:33 WBC 16.2 H RBC 4.97 Hgb 13.3 Hct 40.2 MCV 80.9 L MCH 26.8 L MCHC 33.1 RDW Std Deviation 38.7 RDW Coeff of John 13.2 Plt Count 483 H MPV 9.1 Immature Gran % (Auto) 0.600 Neut % (Auto) 75.8 H Lymph % (Auto) 15.1 L [place] % (Auto) 8.0 Eos % (Auto) 0.1 Baso % (Auto) 0.4 Absolute Neuts (auto) 12.3 H Absolute Lymphs (auto) 2.45 Nucleated RBC % 0 Sodium 131 L Potassium 3.4 L Chloride 98 Carbon Dioxide 22.0 Anion Gap 11 BUN 20 H Creatinine 1.52 H Estim Creat Clear Calc 50.20 Est GFR (MDRD) Af Amer 51 L Est GFR (MDRD) Non-Af 42 L BUN/Creatinine Ratio 13.2 Glucose 271 H Calcium 9.8 Magnesium 2.0 Total Bilirubin 0.80 Direct Bilirubin 0.22 AST 12 L ALT 17 Alkaline Phosphatase 108 Total Protein 9.3 H Albumin 3.6 Globulin 5.7 H Lipase 64 Serum , Qual NEGATIVE Urine Color Yellow Urine Clarity Clear Urine pH 5.0 Ur Specific [place] 1.020 Urine Protein 30 H Urine Glucose (UA) 100 H Urine Ketones 15 H Urine Occult Blood 10 H Urine Nitrite Negative Urine Bilirubin Negative Urine Urobilinogen Normal Ur Leukocyte Esterase 25 H Urine RBC 0 SEEN Urine WBC 0-5 SEEN Ur Squamous Epith Cells 0-5 SEEN Ur Transition Epith Cell 0-5 SEEN Urine Bacteria RARE Urine Mucus 0 SEEN Radiography Diagnostic Testing: Clinical Impression(s) from Imaging Studies Abdomen/Pelvis CT 02/26/23 01:31 IMPRESSION: Some mild wall thickening and inflammation of the rectum with a moderate amount of stool in the distal sigmoid colon. Findings may indicate an infectious or inflammatory proctitis. Follow-up is recommended to ensure resolution. Electronically Signed: Jamshid Mccormick MD at 2:42 EDT , Discharge Plan Triage Chief Complaint: Abd Pain ED Provider: Perico Norman Dx/Rx/DC Orders Clinical Impression: Acute proctitis, Constipation, Insulin dependent diabetes mellitus Instructions: Anatomy of the Digestive System, ED Constipation (Adult) Prescriptions: New amoxicillin-pot clavulanate 875-125 mg tablet 1 tab PO BID 7 Days Qty: 14 0RF hydrocodone-acetaminophen 5-325 mg tablet 1 tab PO Q6H PRN PRN (Reason: Pain) 3 Days Qty: 12 0RF ondansetron 4 mg tablet,disintegrating 4 mg PO TID PRN (Reason: nausea and vomiting) Qty: 21 0RF polyethylene glycol 3350 [Miralax] 17 gram/dose powder 17 g PO DAILY PRN (Reason: constipation) Qty: 510 0RF No Action albuterol sulfate [Ventolin HFA] 90 mcg/actuation HFA aerosol inhaler 1 inh INHALATION Q4H metformin 500 mg tablet 1,000 mg PO BID Hold Instructions: Resume on 01/20/23. Hold until nausea, vomiting, oral intake improve insulin glargine [Lantus Solostar U-100 Insulin] 100 unit/mL (3 mL) insulin pen 15 unit SUBCUT BID Patient Comments: inject 20 units subcutaneous twice daily scopolamine base 1 mg over 3 days patch 3 day 1 patch transdermal Q3D PRN (Reason: nausea and vomiting) Qty: 4 0RF bisacodyl [Dulcolax (bisacodyl)] 10 mg suppository 10 mg VA DAILY 3 Days Qty: 12 0RF Rx Instructions: Hold for diarrhea hyoscyamine sulfate [Levsin/SL] 0.125 mg tablet, sublingual 0.125 mg PO TID PRN (Reason: abdominal pain) Qty: 10 0RF ondansetron 4 mg tablet,disintegrating 4 mg PO Q8H PRN PRN (Reason: Nausea) Qty: 10 0RF promethazine 25 mg tablet 25 mg PO TID PRN (Reason: nausea and vomiting) Qty: 20 0RF trazodone 300 mg tablet 300 mg PO QHS Patient Comments: take 1 tablets 30 minutes before bedtime lansoprazole [Prevacid] 30 mg capsule,delayed release(DR/EC) 30 mg PO DAILY Qty: 14 0RF ondansetron 4 mg tablet,disintegrating 4 mg PO Q8H PRN PRN (Reason: Nausea) Qty: 10 0RF dicyclomine 10 mg capsule 20 mg PO TIDAC Qty: 20 0RF sulfamethoxazole-trimethoprim [Bactrim DS] 800-160 mg tablet 1 tab PO BID 7 Days Qty: 14 0RF omeprazole 40 mg capsule,delayed release(DR/EC) 40 mg PO BID Qty: 60 2RF Rx Instructions: take two times a day for 8 weeks then once a day Primary Care Provider: [facility] Sophy Santiago Referrals: [facility] Sophy Santiago [Primary Care Provider] - Activity Restrictions/Additional Instructions: Your CT scan showed inflammation of the rectum consistent with acute proctitis. This can be secondary to infection or just inflammation but because of your diabetes and elevation of your white count take the antibiotic to resolve an infectious cause. If you have any further concerns please return for repeat evaluation Disposition Disposition: Home, Self Care Discharge Date/Time: 02/26/23 03:55
[2023-02-26] MEDS: Amox/Clavulanate 875 MG Tablet PO (03:50)
[2023-02-26 03:54] VITALS: BP 107/63; PULSE 68; RESP 15; O2SAT 97
== END 2023-02-26 03:55 | disposition home or self-care (01) ==
PROVIDERS: Emergency Provider Emergency Medicine; Visit Provider Emergency Medicine
DX: K62.89 Other specified diseases of anus and rectum (principal); E11.65 Type 2 diabetes mellitus with hyperglycemia; I10 Essential (primary) hypertension; K59.00 Constipation, unspecified; R11.2 Nausea with vomiting, unspecified; J45.909 Unspecified asthma, uncomplicated; F17.210 Nicotine dependence, cigarettes, uncomplicated
CPT/HCPCS: 74177; 80048; 80076; 81001; 83690; 83735; 84703; 85025; 96361; 96374; 96375; 99283; J7030; Q9967; A4216; J2405

== ENCOUNTER 2023-03-06 08:15 | Emergency (ER) | payer MEDICAID, SELFPAY ==
[2023-03-06 08:15] VITALS: BP 153/113; PULSE 100; RESP 14; TEMP 36.1; O2SAT 100; BMI 32.5
--- NOTE | 2023-03-06 08:41 | ED.VIS.GI ---
HPI HPI - GI History of Present Illness Chief Complaint: Abd Pain Informant: patient Abdominal Pain/Flank Pain Onset: Month(s) Context: Gradual Onset Timing: Continuous Quality: Cramping and Stabbing Location: Diffuse Worsened by: Nothing Relieved by: Nothing Nausea/Vomiting/Emesis GI Symptom: Positive for Nausea and Vomiting Quality: Positive for Nonbilious; Negative for Blood streaks, Coffee ground or Hematemesis Diarrhea/Melena/Hematochezia GI Symptom: Negative for Diarrhea, Melena or Hematochezia Associated Symptoms Associated Symptoms: Positive for Frequency; Negative for Dysuria or Hematuria Narrative Narrative: Patient presents with abdominal pain, nausea, and vomiting that has been constant for the past few months. Patient states that she is not vomiting anything that looks like blood or coffee grounds. Patient states her pain is diffuse across her abdomen. Patient describes it as cramping and stabbing. Patient states nothing makes it better nothing makes it worse. Patient states she was admitted to hospital in [place] recently for nausea and vomiting. Patient states she is on an antibiotic for a foot infection. Patient states she is unable to keep any of her antibiotics down. Patient does not know what the name of her antibiotic is however. [facility] Medical History Anxiety Asthma Constipation Depression Diabetes mellitus with diabetic polyneuropathy Elevated serum creatinine Failure of outpatient treatment Hypertension Type 2 diabetes mellitus with foot ulcer Home Medications albuterol sulfate 90 mcg/actuation aerosol inhaler (Ventolin HFA) 1 inh inhalation Q4H SOB 04/06/22 [History Last Taken 06/24/22] metformin 500 mg tablet 1,000 mg PO BID DM 06/24/22 [History Last Taken 06/24/22] insulin glargine 100 unit/mL (3 mL) subcutaneous pen (Lantus Solostar U-100 Insulin) 15 unit subcut BID diabetes 08/12/22 [History Last Taken Unknown] hyoscyamine sulfate 0.125 mg sublingual tablet (Levsin/SL) 0.125 mg PO TID PRN abdominal pain #10 tabs 01/07/23 [Rx Last Taken Unknown] ondansetron 4 mg disintegrating tablet 4 mg PO Q8H PRN PRN Nausea #10 tabs 01/07/23 [Rx Last Taken Unknown] promethazine 25 mg tablet 25 mg PO TID PRN nausea and vomiting #20 tabs 01/09/23 [Rx Last Taken Unknown] trazodone 300 mg tablet 300 mg PO QHS 01/12/23 [History Last Taken Unknown] bisacodyl 10 mg rectal suppository (Dulcolax (bisacodyl)) 10 mg FL DAILY 3 days #12 ea 01/15/23 [Rx Last Taken Unknown] scopolamine base 1 mg over 3 days transdermal patch 1 patch transdermal Q3D PRN nausea and vomiting #4 ea 01/15/23 [Rx Last Taken Unknown] omeprazole 40 mg capsule,delayed release 40 mg PO BID #60 caps 01/19/23 [Rx Last Taken Unknown] dicyclomine 10 mg capsule 20 mg (2 x 10 mg) PO TIDAC #20 CAPSULES 02/08/23 [Rx Last Taken Unknown] lansoprazole 30 mg capsule,delayed release (Prevacid) 30 mg PO DAILY #14 caps 02/08/23 [Rx Last Taken Unknown] ondansetron 4 mg disintegrating tablet 4 mg PO Q8H PRN PRN Nausea #10 tabs 02/08/23 [Rx Last Taken Unknown] sulfamethoxazole 800 mg-trimethoprim 160 mg tablet (Bactrim DS) 1 tab PO BID 7 days #14 tabs 02/24/23 [Rx Last Taken Unknown] amoxicillin 875 mg-potassium clavulanate 125 mg tablet 1 tab PO BID 7 days #14 tabs 02/26/23 [Rx Last Taken Unknown] hydrocodone-acetaminophen 5-325mg 5mg-325mg 1 tab PO Q6H PRN PRN Pain 3 days #12 TABLETS 02/26/23 [Rx Last Taken Unknown] ondansetron 4 mg disintegrating tablet 4 mg PO TID PRN nausea and vomiting #21 tabs 02/26/23 [Rx Last Taken Unknown] polyethylene glycol 3350 17 gram/dose oral powder (Miralax) 17 g PO DAILY PRN constipation #510 grams 02/26/23 [Rx Last Taken Unknown] Allergy/AdvReac Type Severity Reaction Status Date / Time No Known Allergies Allergy Verified 03/06/23 08:17 Family History Other Bleeding disorder Cancer Diabetes Hypertension Surgical History Hx of foot surgery Social History Smoking Status: Former smoker alcohol intake: never substance use type: does not use what type of physical activity do you participate in: none ROS ROS ED Constitutional Constitutional ED: Denies chills or fever(s) Eyes Eyes: Denies blurry vision or change in vision ENT ENT ED: Denies rhinorrhea or sore throat Cardiovascular Cardiovascular: Denies chest pain or palpitations Respiratory/Chest Respiratory/Chest: Denies cough or dyspnea Gastrointestinal Gastrointestinal: Reports abdominal pain, nausea and vomiting; Denies diarrhea or melena Genitourinary Genitourinary ED: Reports urinary frequency; Denies dysuria or hematuria Musculoskeletal Musculoskeletal: Denies back pain or neck pain Integumentary Reports rash; Denies abscess Neurologic Neurologic: Denies headache(s) or weakness Allergic/Immunologic Allergic/Immunologic ED: Denies mouth swelling or urticaria EXAM Physical Exam Const Vital Signs: 03/06/23 08:15 Temperature 97 F L Temperature Source Temporal Pulse Rate 100 Respiratory Rate 14 Blood Pressure 153/113 H Blood Pressure Mean 126 Pulse Ox 100 Oxygen Delivery Method Room Air Positive well nourished, well developed and obese General Appearance ED: well developed and NAD Nutritional Appearance: obese HEENT Reports moist mucous membranes Neck supple and no JVD Resp normal respiratory effort and clear to auscultation bilaterally Cardio regular rate and regular rhythm GI non-distended Auscultation: normoactive bowel sounds Palpation: soft and tender epigastric, LLQ, RLQ, LUQ, RUQ, periumbilical and suprapubic; Negative for guarding or rebound tenderness present Extremity Extremity Narrative: There is erythema and warmth over the dorsal aspect of the right foot extending into the fourth toe. There is no fluctuance. There is no discharge or drainage noted. Pedal pulses are equal bilaterally. Sensation was intact to light touch in all digits. Capillary refill was less than 2 seconds in all digits. Neuro CN's II-XII intact bilaterally, moves all extremities, no sensory deficits noted and gait normal Sensorium / Orientation: alert Motor Exam: strength 5/5 throughout Psych mental status grossly normal MDM MDM MDM Narrative Medical decision making narrative: Differential diagnosis includes bowel obstruction, gastroenteritis, pancreatitis, peptic ulcer disease, duodenal ulcer, pyelonephritis, ureteral calculus, urinary tract infection, sepsis, right foot cellulitis, right foot osteomyelitis, diabetic ketoacidosis. CBC will be obtained to assess for leukocytosis and anemia. Comprehensive metabolic profile will be obtained to assess for hepatic function, renal function, and electrolyte abnormality. Lipase will be obtained to assess for pancreatitis. Serum lactate will be obtained to assess for sepsis. Serum acetone level will be obtained to assess for diabetic ketoacidosis. Urinalysis will be obtained to assess for urinary tract infection, hematuria, and glycosuria. CT scan of the abdomen pelvis will be obtained to assess for bowel obstruction, perforation, ureteral calculus. X-rays of the right foot will be obtained to assess for osteomyelitis. Lab Data Attestation: I reviewed the patient's lab results. Lab results narrative: CBC was reviewed. There is a mild anemia with a hemoglobin of 11.5 and hematocrit 35.8. This is stable compared to previous results. Comprehensive metabolic profile was reviewed. Glucose was slightly elevated at 215. Anion gap was normal. Potassium was slightly low at 3.1. The remainder was within normal limits. Lipase was reviewed and was normal at 59. Lactate was reviewed and was slightly elevated at 2.2. Urinalysis was reviewed. There is no evidence of urinary tract infection or hematuria. Serum acetone level was reviewed and was negative. Labs: Laboratory Results - last 24 hr 03/06/23 03/06/23 08:30 09:10 WBC 10.9 RBC 4.33 Hgb 11.5 L Hct 35.8 L MCV 82.7 MCH 26.6 L MCHC 32.1 RDW Std Deviation 41.1 RDW Coeff of John 13.6 Plt Count 412 MPV 9.2 Immature Gran % (Auto) 0.600 Neut % (Auto) 62.8 Lymph % (Auto) 28.8 Winn % (Auto) 7.2 Eos % (Auto) 0.2 Baso % (Auto) 0.4 Absolute Neuts (auto) 6.9 Absolute Lymphs (auto) 3.14 Nucleated RBC % 0 PT 14.8 INR 1.2 APTT 28.8 Sodium 134 L Potassium 3.1 L Chloride 101 Carbon Dioxide 25.0 Anion Gap 8 BUN 4 L Creatinine 1.01 Estim Creat Clear Calc 75.55 Est GFR (MDRD) Af Amer 82 Est GFR (MDRD) Non-Af 68 BUN/Creatinine Ratio 4.0 L Glucose 215 H Lactic Acid 2.2 H* Calcium 9.3 Total Bilirubin 0.50 AST 7 L ALT 13 Alkaline Phosphatase 109 Total Protein 8.4 H Albumin 3.2 Globulin 5.2 H Albumin/Globulin Ratio 0.6 L Lipase 59 Urine Color Yellow Urine Clarity Clear Urine pH 7.0 Ur Specific Wendell 1.010 Urine Protein 30 H Urine Glucose (UA) 100 H Urine Ketones Negative Urine Occult Blood 10 H Urine Nitrite Negative Urine Bilirubin Negative Urine Urobilinogen Normal Ur Leukocyte Esterase 25 H Urine RBC 0 SEEN Urine WBC 0 SEEN Ur Squamous Epith Cells 0-5 SEEN Urine Bacteria RARE Urine Mucus 0 SEEN Acetone Level NEGATIVE Radiography Diagnostic Testing: Clinical Impression(s) from Imaging Studies Abdomen/Pelvis CT 03/06/23 08:52 IMPRESSION: Enlarged right external iliac and prominent right inguinal lymph nodes, may be reactive. Electronically Signed: Ellen Kevin MD at 12:07 EDT , Foot X-Ray 03/06/23 08:52 IMPRESSION: No acute fracture. Persistent plantar soft tissue swelling within the forefoot with an interval partial resolution of air within the soft tissues since prior examination. Electronically Signed: Ellen Kevin MD at 11:10 EDT , CT scan of the abdomen pelvis was obtained. There is no evidence of bowel obstruction or perforation. There is enlarged right iliac and right inguinal lymph nodes. These are likely reactive to the cellulitis in her right foot. This was interpreted by the radiologist was also independently reviewed by myself. X-rays of the right foot were obtained. There are 3 views. On my independent interpretation, there is no acute fracture. There is no dislocation. There is some soft tissue swelling. There is soft tissue air which is improved from previous result. There is previous resection of the distal fifth metatarsal and phalanges. Radiologist also interpreted the x-rays and agrees. Treatment and Re-Evaluation :: Patient was given IV fluids. Patient was given morphine and Zofran initially. Patient was given a dose of Zosyn. Patient had persistent abdominal pain and nausea. Patient was given a dose of Bentyl and Reglan. Patient was also given a dose of potassium for her hypokalemia. Patient was advised of her findings. Patient was instructed to drink plenty of fluids. Patient was instructed to continue her antibiotics as previously prescribed. 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 Patient understood and was agreeable with the plan. All questions were answered. Discharge Plan Triage Chief Complaint: Abd Pain ED Provider: Rickey Shepard Dx/Rx/DC Orders Clinical Impression: Nausea and vomiting, Abdominal pain, Cellulitis of foot, right Instructions: ED Cellulitis, ED Vomiting (Adult) Prescriptions: No Action albuterol sulfate [Ventolin HFA] 90 mcg/actuation HFA aerosol inhaler 1 inh INHALATION Q4H metformin 500 mg tablet 1,000 mg PO BID Hold Instructions: Resume on 01/20/23. Hold until nausea, vomiting, oral intake improve insulin glargine [Lantus Solostar U-100 Insulin] 100 unit/mL (3 mL) insulin pen 15 unit SUBCUT BID Patient Comments: inject 20 units subcutaneous twice daily scopolamine base 1 mg over 3 days patch 3 day 1 patch transdermal Q3D PRN (Reason: nausea and vomiting) Qty: 4 0RF bisacodyl [Dulcolax (bisacodyl)] 10 mg suppository 10 mg FL DAILY 3 Days Qty: 12 0RF Rx Instructions: Hold for diarrhea hyoscyamine sulfate [Levsin/SL] 0.125 mg tablet, sublingual 0.125 mg PO TID PRN (Reason: abdominal pain) Qty: 10 0RF ondansetron 4 mg tablet,disintegrating 4 mg PO Q8H PRN PRN (Reason: Nausea) Qty: 10 0RF promethazine 25 mg tablet 25 mg PO TID PRN (Reason: nausea and vomiting) Qty: 20 0RF trazodone 300 mg tablet 300 mg PO QHS Patient Comments: take 1 tablets 30 minutes before bedtime lansoprazole [Prevacid] 30 mg capsule,delayed release(DR/EC) 30 mg PO DAILY Qty: 14 0RF ondansetron 4 mg tablet,disintegrating 4 mg PO Q8H PRN PRN (Reason: Nausea) Qty: 10 0RF dicyclomine 10 mg capsule 20 mg PO TIDAC Qty: 20 0RF sulfamethoxazole-trimethoprim [Bactrim DS] 800-160 mg tablet 1 tab PO BID 7 Days Qty: 14 0RF amoxicillin-pot clavulanate 875-125 mg tablet 1 tab PO BID 7 Days Qty: 14 0RF hydrocodone-acetaminophen 5-325 mg tablet 1 tab PO Q6H PRN PRN (Reason: Pain) 3 Days Qty: 12 0RF ondansetron 4 mg tablet,disintegrating 4 mg PO TID PRN (Reason: nausea and vomiting) Qty: 21 0RF polyethylene glycol 3350 [Miralax] 17 gram/dose powder 17 g PO DAILY PRN (Reason: constipation) Qty: 510 0RF omeprazole 40 mg capsule,delayed release(DR/EC) 40 mg PO BID Qty: 60 2RF Rx Instructions: take two times a day for 8 weeks then once a day Primary Care Provider: Sophy Lam Referrals: [facility] Sophy Santiago [Primary Care Provider] - 3-5 Days Disposition Disposition: Home, Self Care
--- NOTE | 2023-03-06 08:52 | CT_ITS ---
STUDY: CT ABDOMEN AND PELVIS WITH CONTRAST - URINARY TRACT REASON FOR EXAM: Female, 33 years old. Abdominal pain -- IV PO Contrast RADIATION DOSAGE (If Supplied By Facility): CTDIvol = ( 15.97 ) mGy, DLP = ( 1387.72 ) mGycm TECHNIQUE: Oral Gastrografin and intravenous 100mL Isovue-300 were administered. Transaxial images were obtained from the dome of the diaphragm to the symphysis pubis subsequent to intravenous contrast administration. Multiplanar coronal and sagittal images were reformatted. Individualized Dose Optimization Techniques Were Used For This CT. COMPARISON: Prior study dated: February 26, 2023 FINDINGS: The visualized lung bases are unremarkable. The visualized portions of the heart are within normal limits. There is a stable low-attenuation focus within the left hepatic lobe adjacent to the falciform ligament consistent with focal fat. Normal gallbladder and extrahepatic biliary system. Normal spleen. Normal pancreas. Normal bilateral adrenal glands. Normal visualized stomach. Normal small intestine. Normal colon. The appendix is visualized and appears normal. Normal abdominal aorta. No retroperitoneal adenopathy. Normal right kidney. Normal left kidney. Normal urinary bladder. There are enlarged right external iliac lymph nodes associated with prominent right inguinal lymph nodes. There are degenerative changes of the visualized thoracic and lumbar spine. CT/Abdomen/Pelvis WITH Contrast IMPRESSION: Enlarged right external iliac and prominent right inguinal lymph nodes, may be reactive. Electronically Signed: Ellen Kevin MD at 12:07 EDT ,
--- NOTE | 2023-03-06 08:52 | RAD_ITS ---
INDICATION: Injury/Pain EXAMINATION/TECHNIQUE: X-RAY - RIGHT XR Foot Min 3 Views 3 VIEWS COMPARISON: Prior study dated: February 24, 2023 FINDINGS: SOFT TISSUES: There is persistent diffuse soft tissue swelling of the forefoot most pronounced along the plantar aspect of the foot. There are foci of air within the plantar soft tissues between the third and fourth proximal phalanges, less pronounced than the prior examination. No radiopaque foreign body. 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 Normal alignment. Preservation of the joint space.. No sclerotic or destructive changes observed. RAD/Foot min 3 Views IMPRESSION: No acute fracture. Persistent plantar soft tissue swelling within the forefoot with an interval partial resolution of air within the soft tissues since prior examination. Electronically Signed: Ellen Kevin MD at 11:10 EDT ,
[2023-03-06 09:01] LABS: Mucous, Urine 0 SEEN /hpf (<or=2+); Red Blood Cells-Urine 0 SEEN /hpf (0-5); White Blood Cells 0 SEEN /hpf (0-5)
[2023-03-06 09:10] LABS: Color, Urine Yellow (Yellow); Glucose, Dipstick 100 mg/dl (Normal); Ketone-Dipstick Negative (Negative); Leukocyte Esterase-Dipstick 25 /ul (Negative); Nitrite-Dipstick Negative (Negative); Occult Blood-Urine 10 /ul (Negative); Protein-Dipstick 30 mg/dl (Negative); Urine Bilirubin Dipstick Negative (Negative); Urine Clarity Clear (Clear); Urine Urobilinogen Normal (Normal)
[2023-03-06] MEDS: Morphine 4 MG/ML Syringe IV (09:17)
[2023-03-06] MEDS: 0.9% Normal Saline 1,000 ML 1000 ML IV ×2 (09:17→12:01)
[2023-03-06] MEDS: Ondansetron 4 MG/2 ML Vial IV (09:17)
[2023-03-06 09:56] LABS: Absolute Lymphocyte Count 3.14 X10^3/uL (0.83-4.51); Absolute Neutrophil Count 6.9 X10^3/uL (2.0-7.7); Basophil# 0.04 X10^3/uL; Basophil% 0.4 % (0-1); Eosinophil# 0.02 X10^3/uL; Eosinophils% 0.2 % (0-5); Hematocrit 35.8 % (37-47); Hemoglobin 11.5 g/dL (12.0-15.0); Lymphocyte # 3.14 X10^3/ul (0.83-4.51); Lymphocyte % 28.8 % (19-41); Mean Corp Hgb Conc 32.1 g/dL (32-36); Mean Corpuscular Hgb 26.6 pg (27.0-32.0); Mean Corpuscular Volume 82.7 fL (81-99); Mean Platelet Vol. 9.2 fl (6.2-12.0); Monocyte# 0.78 X10^3/uL; Monocyte% 7.2 % (0-10); NRBC Flagged by Analyzer 0 % (0-5); Neutrophil # 6.85 X10^3/uL (2.7-7.7); Neutrophil % 62.8 % (47-70); Platelet Count 412 K/mm3 (150-450); RBC Distribution Width CV 13.6 % (11.6-14.6); RBC Distribution Width SD 41.1 fl (35.1-43.9); Red Blood Count 4.33 M/mm3 (4.2-5.4); White Blood Count 10.9 K/mm3 (4.4-11.0)
[2023-03-06 09:59] LABS: Lactic Acid 2.2 mmol/L (0.4-1.9)
[2023-03-06 10:03] LABS: ALB/GLOB Ratio 0.6 RATIO (0.9-2.4); AST(SGOT) 7 U/L (15-37); Alanine Aminotransfer ALT/SGPT 13 U/L (13-56); Albumin, Serum 3.2 g/dL (3.2-5.0); Alkaline Phosphatase 109 U/L (45-117); Anion Gap 8 (5-15); BUN 4 mg/dL (7-18); Calcium,Total 9.3 mg/dL (8.5-10.1); Chloride 101 mmol/L (98-107); Creatinine, Serum 1.01 mg/dL (0.55-1.02); EST Glomerular Filtration Rate 68 mL/min (>60); Est Glom Filt Rate - Afr Amer 82 mL/min (>60); Estimated Creatinine Clearance 75.55 ml/min; Globulin 5.2 g/dL (2.2-4.2); Glucose 215 mg/dL (74-106); Lipase 59 U/L (13-75); Potassium 3.1 mmol/L (3.5-5.1); Protein, Total 8.4 g/dL (6.4-8.2); Sodium Level 134 mmol/L (136-145)
[2023-03-06 10:22] LABS: International Normalized Ratio 1.2; Partial Thromboplast Time 28.8 Seconds (24.1-36.2); Prothrombin Time (Protime)PT. 14.8 SECONDS (11.7-14.9)
[2023-03-06 10:31] LABS: Bacteria RARE /hpf (None Seen); Squamous Epithelial Cells - UA 0-5 SEEN /hpf (5-10)
[2023-03-06] MEDS: Metoclopramide 10 MG/2 ML Vial IV (10:58)
[2023-03-06] MEDS: Dicyclomine 20 MG/2 ML Vial IM (11:15)
[2023-03-06] MEDS: Potassium Chloride Oral Tablet 20 MEQ 40 MEQ PO (11:16)
[2023-03-06 13:28] LABS: Reflex Lactate? Y
== END 2023-03-06 13:37 | disposition home or self-care (01) ==
PROVIDERS: Emergency Provider Emergency Medicine; Visit Provider Emergency Medicine
DX: L03.115 Cellulitis of right lower limb (principal); E11.42 Type 2 diabetes mellitus with diabetic polyneuropathy; R11.2 Nausea with vomiting, unspecified; I10 Essential (primary) hypertension; Z87.891 Personal history of nicotine dependence; J45.909 Unspecified asthma, uncomplicated; R35.0 Frequency of micturition; E66.9 Obesity, unspecified; R10.9 Unspecified abdominal pain
CPT/HCPCS: 73630; 74177; 80053; 81001; 82009; 83605; 83690; 85025; 85610; 85730; 96361; 96365; 96375; 99285; J7030; Q9967; A4216; J2405

== ENCOUNTER 2023-04-13 08:58 | Emergency (ER) | payer MEDICAID, SELFPAY ==
[2023-04-13 08:59] VITALS: BP 115/87; PULSE 113; RESP 24; TEMP 35.5; O2SAT 100; BMI 32.3
--- NOTE | 2023-04-13 09:09 | EX.ED.DYSGE1 ---
HPI History of Present Illness Chief Complaint: Abd Pain Informant: patient Narrative Narrative: Reports generalized abdominal pain for past few days with vomiting. States pain causes vomiting. Denies any diarrhea. No abdominal surgeries. Cannot recall her last menstrual period this time. Denies any allergies. History of similar stating last time cannabis hyperemesis syndrome. Discussed usage, she states she is around secondhand. Last time was less than a week ago. No urinary symptoms. No fevers. She states has no hot water at home, therefore has not tried hot showers. Denies alcohol use. Prior similar symptoms: Yes PFSH PFSH Medical History Anxiety Asthma Constipation Depression Diabetes mellitus with diabetic polyneuropathy Elevated serum creatinine Failure of outpatient treatment Hypertension Type 2 diabetes mellitus with foot ulcer Home Medications albuterol sulfate 90 mcg/actuation aerosol inhaler (Ventolin HFA) 1 inh inhalation Q4H SOB 04/06/22 [History Last Taken 06/24/22] metformin 500 mg tablet 1,000 mg PO BID DM 06/24/22 [History Last Taken 06/24/22] insulin glargine 100 unit/mL (3 mL) subcutaneous pen (Lantus Solostar U-100 Insulin) 15 unit subcut BID diabetes 08/12/22 [History Last Taken Unknown] hyoscyamine sulfate 0.125 mg sublingual tablet (Levsin/SL) 0.125 mg PO TID PRN abdominal pain #10 tabs 01/07/23 [Rx Last Taken Unknown] ondansetron 4 mg disintegrating tablet 4 mg PO Q8H PRN PRN Nausea #10 tabs 01/07/23 [Rx Last Taken Unknown] promethazine 25 mg tablet 25 mg PO TID PRN nausea and vomiting #20 tabs 01/09/23 [Rx Last Taken Unknown] trazodone 300 mg tablet 300 mg PO QHS 01/12/23 [History Last Taken Unknown] bisacodyl 10 mg rectal suppository (Dulcolax (bisacodyl)) 10 mg MD DAILY 3 days #12 ea 01/15/23 [Rx Last Taken Unknown] scopolamine base 1 mg over 3 days transdermal patch 1 patch transdermal Q3D PRN nausea and vomiting #4 ea 01/15/23 [Rx Last Taken Unknown] omeprazole 40 mg capsule,delayed release 40 mg PO BID #60 caps 01/19/23 [Rx Last Taken Unknown] dicyclomine 10 mg capsule 20 mg (2 x 10 mg) PO TIDAC #20 CAPSULES 02/08/23 [Rx Last Taken Unknown] lansoprazole 30 mg capsule,delayed release (Prevacid) 30 mg PO DAILY #14 caps 02/08/23 [Rx Last Taken Unknown] sulfamethoxazole 800 mg-trimethoprim 160 mg tablet (Bactrim DS) 1 tab PO BID 7 days #14 tabs 02/24/23 [Rx Last Taken Unknown] amoxicillin 875 mg-potassium clavulanate 125 mg tablet 1 tab PO BID 7 days #14 tabs 02/26/23 [Rx Last Taken Unknown] hydrocodone-acetaminophen 5-325mg 5mg-325mg 1 tab PO Q6H PRN PRN Pain 3 days #12 TABLETS 02/26/23 [Rx Last Taken Unknown] ondansetron 4 mg disintegrating tablet 4 mg PO TID PRN nausea and vomiting #21 tabs 02/26/23 [Rx Last Taken Unknown] polyethylene glycol 3350 17 gram/dose oral powder (Miralax) 17 g PO DAILY PRN constipation #510 grams 02/26/23 [Rx Last Taken Unknown] ondansetron 4 mg disintegrating tablet 4 mg PO Q8H PRN PRN Nausea #10 tabs 03/06/23 [Rx Last Taken Unknown] promethazine 25 mg rectal suppository (Promethegan) 25 mg MD Q6H PRN PRN Nausea #6 supp 04/13/23 [Rx Last Taken Unknown] promethazine 25 mg tablet 25 mg PO Q6H PRN PRN Nausea #10 TABLETS 04/13/23 [Rx Last Taken Unknown] Allergy/AdvReac Type Severity Reaction Status Date / Time No Known Allergies Allergy Verified 04/13/23 08:59 Family History Other Bleeding disorder Cancer Diabetes Hypertension Surgical History Hx of foot surgery Social History Smoking Status: Former smoker alcohol intake: never substance use type: does not use what type of physical activity do you participate in: none ROS ROS ED Constitutional Constitutional ED: Denies chills, fever(s) or sweats Eyes Eyes: Denies change in vision ENT ENT ED: Denies dysphagia or sore throat Cardiovascular Cardiovascular: Denies chest pain, leg edema, palpitations or racing heartbeat Respiratory/Chest Respiratory/Chest: Denies cough, dyspnea or dyspnea on exertion Gastrointestinal Gastrointestinal: Reports abdominal pain, nausea and vomiting; Denies diarrhea Genitourinary Genitourinary ED: Denies dysuria, hematuria or urinary frequency Musculoskeletal Musculoskeletal: Denies back pain, extremity pain or neck pain Integumentary Denies rash or wounds Neurologic Neurologic: Denies headache(s), paresthesias or weakness EXAM Physical Exam Const Vital Signs: 04/13/23 08:59 04/13/23 10:36 Temperature 95.9 F L Temperature Source Temporal Pulse Rate 113 H 64 Respiratory Rate 24 H 14 Blood Pressure 115/87 H 108/78 Blood Pressure Mean 96 88 Pulse Ox 100 98 Oxygen Delivery Method Room Air Room Air Positive well nourished and well developed Constitutional Narrative: Nontoxic, tearful during exam General Appearance ED: well developed HEENT HEENT Narrative: Mild dry mucosal membranes normocephalic and atraumatic Eyes PERRL, EOMs intact bilaterally and conjunctivae normal General Eye ED: Yes normal appearance of both eyes Neck no lymphadenopathy and supple General: Negative for tenderness Chest Wall Chest: Negative for tenderness Resp normal respiratory effort and normal air movement Effort and Inspection: symmetric chest movement; Negative for respiratory distress Cardio regular rhythm and no murmurs Rate: tachycardic Peripheral Pulses: pulses 2+ throughout GI normal to inspection, nondistended, normoactive bowel sounds GI Narrative: Soft abdomen, mild mid abdominal tenderness. No guarding or rebound. Negative Morris's or McBurney's 10. Palpation: Negative for guarding or rebound tenderness present Back/Spine no CVA tenderness and no thoracic nor lumbar tenderness Extremity normal to inspection General Extremety ED: Negative for edema or tenderness General Extremity: Negative for edema Neuro oriented x3 and no sensory deficits noted Sensorium / Orientation: awake and alert Skin no rashes or lesions noted and no wounds MDM MDM MDM Narrative Medical decision making narrative: Interventions / MDM: Differential diagnosis: Cannabis hyperemesis syndrome, gastroparesis, electrolyte abnormalities, dehydration Diagnosis considered but do not suspect: Nonsurgical abdomen, no clear concerns for cholecystitis or appendicitis. Pancreatitis, slightly elevated lipase secondary to vomiting, My EKG interpretation: N/A Imaging independently reviewed and interpreted by myself: N/A External documents reviewed: GI evaluation in the office January 2022, recommended upper endoscopy with her diabetes discussion with possible gastroparesis. No noted marijuana use from the note at that time. Multiple ED visits evaluated including one for myself with confirmed marijuana intake. Test considered but not ordered:N/A ED course: Patient clinically hydrated tachycardia. Nonsurgical abdomen. History of marijuana exposure similar symptoms in the past. She has diabetes history, abdominal labs ordered, fluids Zofran and capsaicin topical which helped her in the past. Labs with glucose 280 anion gap was normal 8. Therefore no objective DKA. Creatinine 1.28 she was given a liter of fluids. Lipase slightly up at 98 not 2 or 3 times normal concern for pancreatitis likely secondary to her vomiting. Reevaluation she states symptoms are improving. Abdomen remains soft. P.o. challenged able to keep it down reporting slight queasiness. However there is no emesis. Patient discharged with a capsaicin cream, she states Phenergan works better for her at home. Oral and suppositories were written and sent to her pharmacy. Discussed her evaluation from GI last year she reported upper endoscopy at outside hospital she cannot recall where since then reported normal. Discussed with her diabetes, she has not had ruled out gastroparesis. She is referred back to GI. Return precautions. All questions were answered. Re-evaluation: stable Disposition discussed with patient/family/significant other: Patient Case discussed with consulting clinician: N/A This note was generated with Recorded Future dictation software. It may contain incorrect words, spelling, and punctuation that were not noted in checking the note before signing. Lab Data Attestation: I reviewed the patient's lab results. Labs: Laboratory Results - last 24 hr 04/13/23 09:21 WBC 8.7 RBC 4.42 Hgb 12.6 Hct 38.6 MCV 87.3 MCH 28.5 MCHC 32.6 RDW Std Deviation 47.7 H RDW Coeff of John 16.6 H Plt Count 542 H MPV 8.3 Immature Gran % (Auto) 0.800 Neut % (Auto) 58.8 Lymph % (Auto) 35.1 [place] % (Auto) 4.6 Eos % (Auto) 0.1 Baso % (Auto) 0.6 Absolute Neuts (auto) 5.1 Absolute Lymphs (auto) 3.04 Nucleated RBC % 0 Sodium 132 L Potassium 4.0 Chloride 100 Carbon Dioxide 24.0 Anion Gap 8 BUN 12 Creatinine 1.28 H Estim Creat Clear Calc 59.62 Est GFR (MDRD) Af Amer 63 Est GFR (MDRD) Non-Af 52 L BUN/Creatinine Ratio 9.4 L Glucose 280 H Calcium 9.5 Total Bilirubin 0.60 AST 17 ALT 23 Alkaline Phosphatase 114 Total Protein 7.8 Albumin 3.0 L Globulin 4.8 H Albumin/Globulin Ratio 0.6 L Lipase 98 H Serum , Qual NEGATIVE Discharge Plan Triage Chief Complaint: Abd Pain Other Complaint: Nausea/Vomiting ED Provider: Poli Barfield Dx/Rx/DC Orders Clinical Impression: Diabetes, Nausea & vomiting, Cannabis hyperemesis syndrome concurrent with and due to cannabis dependence, Dehydration Instructions: Cannabinoid Hyperemesis Syndrome, Dehydration Prescriptions: New promethazine 25 mg tablet 25 mg PO Q6H PRN PRN (Reason: Nausea) Qty: 10 0RF promethazine [Promethegan] 25 mg suppository 25 mg MD Q6H PRN PRN (Reason: Nausea) Qty: 6 0RF No Action albuterol sulfate [Ventolin HFA] 90 mcg/actuation HFA aerosol inhaler 1 inh INHALATION Q4H metformin 500 mg tablet 1,000 mg PO BID Hold Instructions: Resume on 01/20/23. Hold until nausea, vomiting, oral intake improve insulin glargine [Lantus Solostar U-100 Insulin] 100 unit/mL (3 mL) insulin pen 15 unit SUBCUT BID Patient Comments: inject 20 units subcutaneous twice daily scopolamine base 1 mg over 3 days patch 3 day 1 patch transdermal Q3D PRN (Reason: nausea and vomiting) Qty: 4 0RF bisacodyl [Dulcolax (bisacodyl)] 10 mg suppository 10 mg MD DAILY 3 Days Qty: 12 0RF Rx Instructions: Hold for diarrhea hyoscyamine sulfate [Levsin/SL] 0.125 mg tablet, sublingual 0.125 mg PO TID PRN (Reason: abdominal pain) Qty: 10 0RF ondansetron 4 mg tablet,disintegrating 4 mg PO Q8H PRN PRN (Reason: Nausea) Qty: 10 0RF promethazine 25 mg tablet 25 mg PO TID PRN (Reason: nausea and vomiting) Qty: 20 0RF trazodone 300 mg tablet 300 mg PO QHS Patient Comments: take 1 tablets 30 minutes before bedtime lansoprazole [Prevacid] 30 mg capsule,delayed release(DR/EC) 30 mg PO DAILY Qty: 14 0RF dicyclomine 10 mg capsule 20 mg PO TIDAC Qty: 20 0RF sulfamethoxazole-trimethoprim [Bactrim DS] 800-160 mg tablet 1 tab PO BID 7 Days Qty: 14 0RF amoxicillin-pot clavulanate 875-125 mg tablet 1 tab PO BID 7 Days Qty: 14 0RF hydrocodone-acetaminophen 5-325 mg tablet 1 tab PO Q6H PRN PRN (Reason: Pain) 3 Days Qty: 12 0RF ondansetron 4 mg tablet,disintegrating 4 mg PO TID PRN (Reason: nausea and vomiting) Qty: 21 0RF polyethylene glycol 3350 [Miralax] 17 gram/dose powder 17 g PO DAILY PRN (Reason: constipation) Qty: 510 0RF ondansetron 4 mg tablet,disintegrating 4 mg PO Q8H PRN PRN (Reason: Nausea) Qty: 10 0RF omeprazole 40 mg capsule,delayed release(DR/EC) 40 mg PO BID Qty: 60 2RF Rx Instructions: take two times a day for 8 weeks then once a day Primary Care Provider: Care Physician,No Primary Referrals: Venkatesh Torres DO [Med Staff - Active Staff] - 1-2 Weeks Medical [place],Sophy Chi [Non-Staff] - Activity Restrictions/Additional Instructions: You have seen Dr. Torres a year ago. Reported upper endoscopy in outside hospital. Avoid marijuana use. Follow-up with Dr. Torres. Disposition Disposition: Home, Self Care
[2023-04-13] MEDS: 0.9% Normal Saline (1000mL) 1,000 ML 1000 ML IV (09:19)
[2023-04-13] MEDS: Ondansetron 4 MG/2 ML Vial IV (09:19)
[2023-04-13 09:33] LABS: Absolute Lymphocyte Count 3.04 X10^3/uL (0.83-4.51); Absolute Neutrophil Count 5.1 X10^3/uL (2.0-7.7); Basophil# 0.05 X10^3/uL; Basophil% 0.6 % (0-1); Eosinophil# 0.01 X10^3/uL; Eosinophils% 0.1 % (0-5); Hematocrit 38.6 % (37-47); Hemoglobin 12.6 g/dL (12.0-15.0); Lymphocyte # 3.04 X10^3/ul (0.83-4.51); Lymphocyte % 35.1 % (19-41); Mean Corp Hgb Conc 32.6 g/dL (32-36); Mean Corpuscular Hgb 28.5 pg (27.0-32.0); Mean Corpuscular Volume 87.3 fL (81-99); Mean Platelet Vol. 8.3 fl (6.2-12.0); Monocyte% 4.6 % (0-10); NRBC Flagged by Analyzer 0 % (0-5); Neutrophil % 58.8 % (47-70); Platelet Count 542 K/mm3 (150-450); RBC Distribution Width CV 16.6 % (11.6-14.6); RBC Distribution Width SD 47.7 fl (35.1-43.9); Red Blood Count 4.42 M/mm3 (4.2-5.4); White Blood Count 8.7 K/mm3 (4.4-11.0)
[2023-04-13] MEDS: Capsaicin 0.025% 1 APPLIC Tube TOPICAL (09:43)
[2023-04-13 09:45] LABS: Internal QC Validated? YES +Cl - CLEAR BKGD; Pregnancy, Serum, hCG Quali. NEGATIVE Negative
[2023-04-13 09:51] LABS: ALB/GLOB Ratio 0.6 RATIO (0.9-2.4); AST(SGOT) 17 U/L (15-37); Alanine Aminotransfer ALT/SGPT 23 U/L (13-56); Alkaline Phosphatase 114 U/L (45-117); Anion Gap 8 (5-15); BUN 12 mg/dL (7-18); BUN/Creat Ratio 9.4 RATIO (10-20); Calcium,Total 9.5 mg/dL (8.5-10.1); Chloride 100 mmol/L (98-107); Creatinine, Serum 1.28 mg/dL (0.55-1.02); EST Glomerular Filtration Rate 52 mL/min (>60); Est Glom Filt Rate - Afr Amer 63 mL/min (>60); Estimated Creatinine Clearance 59.62 ml/min; Globulin 4.8 g/dL (2.2-4.2); Glucose 280 mg/dL (74-106); Lipase 98 U/L (13-75); Protein, Total 7.8 g/dL (6.4-8.2); Sodium Level 132 mmol/L (136-145)
[2023-04-13 10:36] VITALS: BP 108/78; PULSE 64; RESP 14; O2SAT 98
== END 2023-04-13 10:51 | disposition home or self-care (01) ==
PROVIDERS: Emergency Provider Emergency Medicine; Visit Provider Emergency Medicine
DX: R11.2 Nausea with vomiting, unspecified (principal); F12.20 Cannabis dependence, uncomplicated; E11.9 Type 2 diabetes mellitus without complications; Z87.891 Personal history of nicotine dependence; E86.0 Dehydration; I10 Essential (primary) hypertension; J45.909 Unspecified asthma, uncomplicated
CPT/HCPCS: 80053; 83690; 84703; 85025; 96361; 96374; 99284; J7030; A4216; J2405

== ENCOUNTER 2023-04-14 11:50 | Emergency (ER) | payer MEDICAID, SELFPAY ==
[2023-04-14 11:51] VITALS: BP 131/92; PULSE 102; RESP 24; TEMP 36.2; O2SAT 100; BMI 32.3
--- NOTE | 2023-04-14 12:26 | EX.ED.DYSGE1 ---
HPI History of Present Illness Chief Complaint: Abd Pain Informant: patient Narrative Narrative: To the emergency room secondary to abdominal pain. She was seen in the emergency room yesterday and discharged with a prescription for Phenergan. Work-up was unremarkable. Patient states that she has pain today and is unable to stand up straight. Her nausea and vomiting do seem to be somewhat improved. She picked up her Phenergan from the pharmacy but cannot remember if she took it this morning. [facility] Medical History Anxiety Asthma Constipation Depression Diabetes mellitus with diabetic polyneuropathy Elevated serum creatinine Failure of outpatient treatment Hypertension Type 2 diabetes mellitus with foot ulcer Home Medications albuterol sulfate 90 mcg/actuation aerosol inhaler (Ventolin HFA) 1 inh inhalation Q4H SOB 04/06/22 [History Last Taken 06/24/22] metformin 500 mg tablet 1,000 mg PO BID DM 06/24/22 [History Last Taken 06/24/22] insulin glargine 100 unit/mL (3 mL) subcutaneous pen (Lantus Solostar U-100 Insulin) 15 unit subcut BID diabetes 08/12/22 [History Last Taken Unknown] hyoscyamine sulfate 0.125 mg sublingual tablet (Levsin/SL) 0.125 mg PO TID PRN abdominal pain #10 tabs 01/07/23 [Rx Last Taken Unknown] ondansetron 4 mg disintegrating tablet 4 mg PO Q8H PRN PRN Nausea #10 tabs 01/07/23 [Rx Last Taken Unknown] promethazine 25 mg tablet 25 mg PO TID PRN nausea and vomiting #20 tabs 01/09/23 [Rx Last Taken Unknown] trazodone 300 mg tablet 300 mg PO QHS 01/12/23 [History Last Taken Unknown] bisacodyl 10 mg rectal suppository (Dulcolax (bisacodyl)) 10 mg DC DAILY 3 days #12 ea 01/15/23 [Rx Last Taken Unknown] scopolamine base 1 mg over 3 days transdermal patch 1 patch transdermal Q3D PRN nausea and vomiting #4 ea 01/15/23 [Rx Last Taken Unknown] omeprazole 40 mg capsule,delayed release 40 mg PO BID #60 caps 01/19/23 [Rx Last Taken Unknown] dicyclomine 10 mg capsule 20 mg (2 x 10 mg) PO TIDAC #20 CAPSULES 02/08/23 [Rx Last Taken Unknown] lansoprazole 30 mg capsule,delayed release (Prevacid) 30 mg PO DAILY #14 caps 02/08/23 [Rx Last Taken Unknown] sulfamethoxazole 800 mg-trimethoprim 160 mg tablet (Bactrim DS) 1 tab PO BID 7 days #14 tabs 02/24/23 [Rx Last Taken Unknown] amoxicillin 875 mg-potassium clavulanate 125 mg tablet 1 tab PO BID 7 days #14 tabs 02/26/23 [Rx Last Taken Unknown] hydrocodone-acetaminophen 5-325mg 5mg-325mg 1 tab PO Q6H PRN PRN Pain 3 days #12 TABLETS 02/26/23 [Rx Last Taken Unknown] ondansetron 4 mg disintegrating tablet 4 mg PO TID PRN nausea and vomiting #21 tabs 02/26/23 [Rx Last Taken Unknown] polyethylene glycol 3350 17 gram/dose oral powder (Miralax) 17 g PO DAILY PRN constipation #510 grams 02/26/23 [Rx Last Taken Unknown] ondansetron 4 mg disintegrating tablet 4 mg PO Q8H PRN PRN Nausea #10 tabs 03/06/23 [Rx Last Taken Unknown] promethazine 25 mg rectal suppository (Promethegan) 25 mg DC Q6H PRN PRN Nausea #6 supp 04/13/23 [Rx Last Taken Unknown] promethazine 25 mg tablet 25 mg PO Q6H PRN PRN Nausea #10 TABLETS 04/13/23 [Rx Last Taken Unknown] dicyclomine 20 mg tablet 20 mg PO TID PRN abdominal pain #30 tabs 04/14/23 [Rx Last Taken Unknown] Allergy/AdvReac Type Severity Reaction Status Date / Time No Known Allergies Allergy Verified 04/13/23 08:59 Family History Other Bleeding disorder Cancer Diabetes Hypertension Surgical History Hx of foot surgery Social History Smoking Status: Former smoker alcohol intake: never substance use type: does not use what type of physical activity do you participate in: none ROS ROS ED Constitutional Constitutional ED: Denies chills or fever(s) Eyes Eyes: Denies discharge from eye(s) ENT ENT ED: Denies discharge from eye(s), rhinorrhea or sore throat Cardiovascular Cardiovascular: Denies chest pain or palpitations Respiratory/Chest Respiratory/Chest: Denies cough or dyspnea Gastrointestinal Gastrointestinal: Reports abdominal pain and nausea; Denies diarrhea or vomiting Genitourinary Genitourinary ED: Denies dysuria Musculoskeletal Musculoskeletal: Denies back pain or extremity pain Integumentary Denies Abrasions or rash Neurologic Neurologic: Denies headache(s) or weakness Psychiatric Psychiatric: Denies anxiety or depression Allergic/Immunologic Allergic/Immunologic ED: Denies lip swelling or urticaria EXAM Physical Exam Const Vital Signs: 04/14/23 11:51 Temperature 97.2 F L Temperature Source Temporal Pulse Rate 102 H Respiratory Rate 24 H Blood Pressure 131/92 H Blood Pressure Mean 105 Pulse Ox 100 Oxygen Delivery Method Room Air Positive well nourished and well developed General Appearance ED: well developed HEENT Reports normocephalic and head/scalp atraumatic Eyes PERRL and EOMs intact bilaterally Neck supple Chest Wall inspection of chest normal and palpation of chest normal Resp normal respiratory effort and clear to auscultation bilaterally Cardio regular rate and regular rhythm GI GI Narrative: Soft with diffuse tenderness elevation. No guarding or rebound. Hypoactive bowel sounds. Palpation: soft Back/Spine no CVA tenderness Extremity normal to inspection Neuro oriented x3 and no sensory deficits noted Sensorium / Orientation: alert Motor Exam: strength 5/5 throughout Psych mental status grossly normal Skin no rashes or lesions noted MDM MDM MDM Narrative Medical decision making narrative: Patient's work-up yesterday was reviewed. IV line established. Patient given IV Toradol along with Bentyl and Phenergan for pain and nausea. Labwork obtained to evaluate for leukocytosis, anemia, and electrolyte derangement. Lab Data Attestation: I reviewed the patient's lab results. Labs: Laboratory Results - last 24 hr 04/14/23 12:45 WBC 7.8 RBC 4.57 Hgb 12.8 Hct 40.1 MCV 87.7 MCH 28.0 MCHC 31.9 L RDW Std Deviation 48.6 H RDW Coeff of John 16.4 H Plt Count 565 H MPV 8.3 Immature Gran % (Auto) 1.000 H Neut % (Auto) 52.8 Lymph % (Auto) 39.3 [place] % (Auto) 6.1 Eos % (Auto) 0.3 Baso % (Auto) 0.5 Absolute Neuts (auto) 4.1 Absolute Lymphs (auto) 3.05 Nucleated RBC % 0 Sodium 135 L Potassium 3.6 Chloride 103 Carbon Dioxide 25.0 Anion Gap 7 BUN 10 Creatinine 1.04 H Estim Creat Clear Calc 73.37 Est GFR (MDRD) Af Amer 79 Est GFR (MDRD) Non-Af 66 BUN/Creatinine Ratio 9.6 L Glucose 179 H Calcium 9.5 Total Bilirubin 0.60 Direct Bilirubin 0.16 AST 13 L ALT 23 Alkaline Phosphatase 111 Total Protein 8.2 Albumin 3.2 Globulin 5.0 H Lipase 80 H Treatment and Re-Evaluation :: [place], white count 7.8 with a hemoglobin of 12.8. Normal differential. Chemistry studies significant only for sodium of 135. Creatinine is 1.04. LFTs are unremarkable. Lipase is today is 88 yesterday was 95. On repeat evaluation patient resting much more comfortably. She is lying prone on her stomach and states that she does feel improved. I will write her prescription for Bentyl and she just picked up Phenergan at the pharmacy last night. Return instructions given. Discharge Plan Triage Chief Complaint: Abd Pain ED Provider: Deann Guerrero Dx/Rx/DC Orders Clinical Impression: Abdominal pain Instructions: ED Abdominal Pain Unkn Cause Fem Prescriptions: New dicyclomine 20 mg tablet 20 mg PO TID PRN (Reason: abdominal pain) Qty: 30 0RF No Action albuterol sulfate [Ventolin HFA] 90 mcg/actuation HFA aerosol inhaler 1 inh INHALATION Q4H metformin 500 mg tablet 1,000 mg PO BID Hold Instructions: Resume on 01/20/23. Hold until nausea, vomiting, oral intake improve insulin glargine [Lantus Solostar U-100 Insulin] 100 unit/mL (3 mL) insulin pen 15 unit SUBCUT BID Patient Comments: inject 20 units subcutaneous twice daily scopolamine base 1 mg over 3 days patch 3 day 1 patch transdermal Q3D PRN (Reason: nausea and vomiting) Qty: 4 0RF bisacodyl [Dulcolax (bisacodyl)] 10 mg suppository 10 mg DC DAILY 3 Days Qty: 12 0RF Rx Instructions: Hold for diarrhea hyoscyamine sulfate [Levsin/SL] 0.125 mg tablet, sublingual 0.125 mg PO TID PRN (Reason: abdominal pain) Qty: 10 0RF ondansetron 4 mg tablet,disintegrating 4 mg PO Q8H PRN PRN (Reason: Nausea) Qty: 10 0RF promethazine 25 mg tablet 25 mg PO TID PRN (Reason: nausea and vomiting) Qty: 20 0RF trazodone 300 mg tablet 300 mg PO QHS Patient Comments: take 1 tablets 30 minutes before bedtime lansoprazole [Prevacid] 30 mg capsule,delayed release(DR/EC) 30 mg PO DAILY Qty: 14 0RF dicyclomine 10 mg capsule 20 mg PO TIDAC Qty: 20 0RF sulfamethoxazole-trimethoprim [Bactrim DS] 800-160 mg tablet 1 tab PO BID 7 Days Qty: 14 0RF amoxicillin-pot clavulanate 875-125 mg tablet 1 tab PO BID 7 Days Qty: 14 0RF hydrocodone-acetaminophen 5-325 mg tablet 1 tab PO Q6H PRN PRN (Reason: Pain) 3 Days Qty: 12 0RF ondansetron 4 mg tablet,disintegrating 4 mg PO TID PRN (Reason: nausea and vomiting) Qty: 21 0RF polyethylene glycol 3350 [Miralax] 17 gram/dose powder 17 g PO DAILY PRN (Reason: constipation) Qty: 510 0RF ondansetron 4 mg tablet,disintegrating 4 mg PO Q8H PRN PRN (Reason: Nausea) Qty: 10 0RF promethazine 25 mg tablet 25 mg PO Q6H PRN PRN (Reason: Nausea) Qty: 10 0RF promethazine [Promethegan] 25 mg suppository 25 mg DC Q6H PRN PRN (Reason: Nausea) Qty: 6 0RF omeprazole 40 mg capsule,delayed release(DR/EC) 40 mg PO BID Qty: 60 2RF Rx Instructions: take two times a day for 8 weeks then once a day Primary Care Provider: Care Physician,No Primary Referrals: Sophy Chi [Non-Staff] - 1-2 Weeks Care Physician,No Primary [Primary Care Provider] - Disposition Disposition: Home, Self Care
[2023-04-14 13:00] LABS: Absolute Lymphocyte Count 3.05 X10^3/uL (0.83-4.51); Absolute Neutrophil Count 4.1 X10^3/uL (2.0-7.7); Basophil# 0.04 X10^3/uL; Basophil% 0.5 % (0-1); Eosinophil# 0.02 X10^3/uL; Eosinophils% 0.3 % (0-5); Hematocrit 40.1 % (37-47); Hemoglobin 12.8 g/dL (12.0-15.0); Lymphocyte # 3.05 X10^3/ul (0.83-4.51); Lymphocyte % 39.3 % (19-41); Mean Corp Hgb Conc 31.9 g/dL (32-36); Mean Corpuscular Volume 87.7 fL (81-99); Mean Platelet Vol. 8.3 fl (6.2-12.0); Monocyte# 0.47 X10^3/uL; Monocyte% 6.1 % (0-10); NRBC Flagged by Analyzer 0 % (0-5); Neutrophil % 52.8 % (47-70); Platelet Count 565 K/mm3 (150-450); RBC Distribution Width CV 16.4 % (11.6-14.6); RBC Distribution Width SD 48.6 fl (35.1-43.9); Red Blood Count 4.57 M/mm3 (4.2-5.4); White Blood Count 7.8 K/mm3 (4.4-11.0)
[2023-04-14] MEDS: 0.9% Normal Saline (1000mL) 1,000 ML 150 ML IV (13:00)
[2023-04-14] MEDS: Dicyclomine 20 MG/2 ML Vial IM (13:01)
[2023-04-14] MEDS: proMETHazine 25 MG/ML Syringe IM (13:02)
[2023-04-14] MEDS: Ketorolac 30 MG/ML Syringe IV (13:02)
[2023-04-14 13:11] LABS: AST(SGOT) 13 U/L (15-37); Alanine Aminotransfer ALT/SGPT 23 U/L (13-56); Albumin, Serum 3.2 g/dL (3.2-5.0); Alkaline Phosphatase 111 U/L (45-117); Anion Gap 7 (5-15); BUN 10 mg/dL (7-18); BUN/Creat Ratio 9.6 RATIO (10-20); Bilirubin, Direct 0.16 mg/dL (0.00-0.30); Calcium,Total 9.5 mg/dL (8.5-10.1); Chloride 103 mmol/L (98-107); Creatinine, Serum 1.04 mg/dL (0.55-1.02); EST Glomerular Filtration Rate 66 mL/min (>60); Est Glom Filt Rate - Afr Amer 79 mL/min (>60); Estimated Creatinine Clearance 73.37 ml/min; Glucose 179 mg/dL (74-106); Lipase 80 U/L (13-75); Potassium 3.6 mmol/L (3.5-5.1); Protein, Total 8.2 g/dL (6.4-8.2); Sodium Level 135 mmol/L (136-145)
== END 2023-04-14 13:55 | disposition home or self-care (01) ==
PROVIDERS: Emergency Provider Emergency Medicine; Visit Provider Emergency Medicine
DX: R10.9 Unspecified abdominal pain (principal); E11.42 Type 2 diabetes mellitus with diabetic polyneuropathy; R11.2 Nausea with vomiting, unspecified; Z87.891 Personal history of nicotine dependence; I10 Essential (primary) hypertension
CPT/HCPCS: 80048; 80076; 83690; 85025; 96361; 96372; 99284; J7030

== ENCOUNTER 2023-04-15 11:16 | Emergency (ER) | payer MEDICAID, SELFPAY ==
[2023-04-15 11:17] VITALS: BP 123/93; PULSE 105; RESP 16; TEMP 36.1; O2SAT 100; BMI 29.3
[2023-04-15 11:33] VITALS: BP 128/99; PULSE 95; RESP 16; O2SAT 99
--- NOTE | 2023-04-15 12:03 | EDS_ITS ---
HPI History of Present Illness Chief Complaint: Shortness of Breath Detail of Chief Complaint: History of anxiety. Informant: patient Onset/Context/Timing Onset: Today Context: sudden Timing: Continuous Current Severity: Moderate Maximum Severity: Moderate Worsened by: Nothing Relieved by: Nothing Associated Symptoms Negative for cough Chest Pain: Positive for None Narrative Narrative: 33-year-old female history of anxiety, diabetes and asthma. Says she feels short of breath. This is her third visit in the last 3 days. She denies any chest pain. No fever. No cough. Her recent work-ups have been negative. She is very anxious and tearful. She also has chronic abdominal pain. Patient's had 2 CAT scans of her abdomen in February that were basically unremarkable. PE Risk Factors: Negative for Cancer, OCP + Smoking + > 35, Prior DVT or PE, Recent immobilization, Recent surgery or Recent travel Prior similar symptoms: Yes Recent Illness/Hospitalization: No PFSH PFSH Medical History Anxiety Asthma Constipation Depression Diabetes mellitus with diabetic polyneuropathy Elevated serum creatinine Failure of outpatient treatment Hypertension Type 2 diabetes mellitus with foot ulcer Home Medications albuterol sulfate 90 mcg/actuation aerosol inhaler (Ventolin HFA) 1 inh inhalation Q4H SOB 04/06/22 [History Last Taken 06/24/22] metformin 500 mg tablet 1,000 mg PO BID DM 06/24/22 [History Last Taken 06/24/22] insulin glargine 100 unit/mL (3 mL) subcutaneous pen (Lantus Solostar U-100 Insulin) 15 unit subcut BID diabetes 08/12/22 [History Last Taken Unknown] hyoscyamine sulfate 0.125 mg sublingual tablet (Levsin/SL) 0.125 mg PO TID PRN abdominal pain #10 tabs 01/07/23 [Rx Last Taken Unknown] ondansetron 4 mg disintegrating tablet 4 mg PO Q8H PRN PRN Nausea #10 tabs 01/07/23 [Rx Last Taken Unknown] promethazine 25 mg tablet 25 mg PO TID PRN nausea and vomiting #20 tabs 01/09/23 [Rx Last Taken Unknown] trazodone 300 mg tablet 300 mg PO QHS 01/12/23 [History Last Taken Unknown] bisacodyl 10 mg rectal suppository (Dulcolax (bisacodyl)) 10 mg WA DAILY 3 days #12 ea 01/15/23 [Rx Last Taken Unknown] scopolamine base 1 mg over 3 days transdermal patch 1 patch transdermal Q3D PRN nausea and vomiting #4 ea 01/15/23 [Rx Last Taken Unknown] omeprazole 40 mg capsule,delayed release 40 mg PO BID #60 caps 01/19/23 [Rx Last Taken Unknown] dicyclomine 10 mg capsule 20 mg (2 x 10 mg) PO TIDAC #20 CAPSULES 02/08/23 [Rx Last Taken Unknown] lansoprazole 30 mg capsule,delayed release (Prevacid) 30 mg PO DAILY #14 caps 02/08/23 [Rx Last Taken Unknown] sulfamethoxazole 800 mg-trimethoprim 160 mg tablet (Bactrim DS) 1 tab PO BID 7 days #14 tabs 02/24/23 [Rx Last Taken Unknown] amoxicillin 875 mg-potassium clavulanate 125 mg tablet 1 tab PO BID 7 days #14 tabs 02/26/23 [Rx Last Taken Unknown] hydrocodone-acetaminophen 5-325mg 5mg-325mg 1 tab PO Q6H PRN PRN Pain 3 days #12 TABLETS 02/26/23 [Rx Last Taken Unknown] ondansetron 4 mg disintegrating tablet 4 mg PO TID PRN nausea and vomiting #21 tabs 02/26/23 [Rx Last Taken Unknown] polyethylene glycol 3350 17 gram/dose oral powder (Miralax) 17 g PO DAILY PRN constipation #510 grams 02/26/23 [Rx Last Taken Unknown] ondansetron 4 mg disintegrating tablet 4 mg PO Q8H PRN PRN Nausea #10 tabs 03/06/23 [Rx Last Taken Unknown] promethazine 25 mg rectal suppository (Promethegan) 25 mg WA Q6H PRN PRN Nausea #6 supp 04/13/23 [Rx Last Taken Unknown] promethazine 25 mg tablet 25 mg PO Q6H PRN PRN Nausea #10 TABLETS 04/13/23 [Rx Last Taken Unknown] dicyclomine 20 mg tablet 20 mg PO TID PRN abdominal pain #30 tabs 04/14/23 [Rx Last Taken Unknown] Allergy/AdvReac Type Severity Reaction Status Date / Time No Known Allergies Allergy Verified 04/15/23 11:16 Family History Other Bleeding disorder Cancer Diabetes Hypertension Surgical History Hx of foot surgery Social History Smoking Status: Current every day smoker tobacco type: cigarettes alcohol intake: never substance use type: does not use what type of physical activity do you participate in: none ROS ROS ED ROS Narrative Shortness of breath. Anxious. Review of Systems ROS Unobtainable: Denies due to encephalopathy Constitutional Constitutional ED: Denies chills or fever(s) Eyes Eyes: Denies blurry vision ENT ENT ED: Denies ear pain Cardiovascular Cardiovascular: Denies chest pain or palpitations Respiratory/Chest Respiratory/Chest: Reports dyspnea Gastrointestinal Gastrointestinal: Denies abdominal pain Genitourinary Genitourinary ED: Denies dysuria or hematuria Integumentary Denies abscess Neurologic Neurologic: Denies headache(s) Psychiatric Psychiatric: Reports anxiety Endocrine Endocrinology: Denies cold intolerance Hematologic/Lymphatic Hematologic/Lymphatic: Denies easy bleeding, easy bruising or lymphadenopathy Allergic/Immunologic Allergic/Immunologic ED: Denies mouth swelling, tongue swelling or urticaria EXAM Physical Exam Narrative Exam Narrative: 33-year-old female tearful and anxious. Vital signs stable afebrile. Pulse ox 9% on room air no signs hypoxia. No one else present in room. H EENT exam unremarkable. Neck nontender no JVD. No lymphadenopathy. No meningismus. Lungs clear to auscultation bilaterally. Heart regular rhythm rate about 95 no murmur. Chest wall nontender. Abdomen soft nondistended normal bowel sounds no peritoneal signs. She is complains of abdominal pain but has no reproducible abdominal pain. There is no hernia or mass. Moving all 4 extremities. Calves are nontender that edema or cords. Neurologically she is awake and alert with no focal motor deficits. Benign exam other than her anxiety. Const Vital Signs: 04/15/23 11:17 04/15/23 11:33 04/15/23 11:33 Temperature 97 F L Temperature Source Temporal Pulse Rate 105 H 95 Respiratory Rate 16 16 Respiratory Effort Short of Breath Respiratory Depth Shallow Respiratory Pattern Irregular Blood Pressure 123/93 H 128/99 H Blood Pressure Mean 103 108 Pulse Ox 100 99 Oxygen Delivery Method Room Air Room Air Room Air Positive well nourished and well developed; Negative for cachectic, contractures or unkempt General Appearance ED: well developed and NAD; Negative for unkempt, cachectic, contractures or pallor Nutritional Appearance: Negative for cachectic HEENT Reports moist mucous membranes atraumatic; Negative for trauma or tenderness Eyes PERRL and EOMs intact bilaterally General Eye ED: Negative for pale conjunctiva or scleral icterus Neck no lymphadenopathy, supple, no meningeal signs and no JVD General: Negative for tenderness Lymph Lymphatic: Negative for other Chest Wall Chest: Negative for other Resp normal respiratory effort Effort and Inspection: Negative for pain with movement Auscultation: Negative for rales, rhonchi or wheezes Cardio regular rate, regular rhythm, S1 normal heart sound, S2 normal heart sound and no murmurs Rate: Negative for bradycardia or tachycardic GI non-tender, non-distended and no masses Inspection: Negative for other Auscultation: normoactive bowel sounds Palpation: soft; Negative for tender or guarding Bladder / Kidney Exam: No other Back/Spine no CVA tenderness and normal to inspection General Back: Negative for CVA tenderness Extremity normal to inspection General Extremety ED: Negative for edema or tenderness General Extremity: Negative for edema Neuro oriented x3 and CN's II-XII intact bilaterally Sensorium / Orientation: alert, oriented to person, oriented to place and oriented to time; Negative for orientation impaired, confused, lethargic or stuporous Speech: speech normal Motor Exam: strength 5/5 throughout Psych mental status grossly normal Appearance: Negative for unkempt Attitude: No agitated Mood & Affect: anxious Thought Process: normal thought process Skin no wounds General Skin Exam: Negative for jaundice or pallor Lesions: no lesions Rashes: no rashes Trauma: Negative for abrasion MDM MDM MDM Narrative Medical decision making narrative: 33-year-old short of breath. Clinically benign exam. She has had recent work- ups even in the last several days are unremarkable. I think this is all from anxiety. She will be given a milligram of Ativan and reassessed. Repeat exam patient is doing well. Much more calm and relaxed at 1:35 PM. I do not think she needs any further evaluation. She has had prior work-ups for this numerous times. I do think this was all secondary to anxiety. She will be discharged home. Discharge Plan Triage Chief Complaint: Shortness of Breath ED Provider: Fabricio Guevara Dx/Rx/DC Orders Clinical Impression: History of asthma, Anxiety attack, History of diabetes mellitus Instructions: ED Panic Attack Prescriptions: No Action albuterol sulfate [Ventolin HFA] 90 mcg/actuation HFA aerosol inhaler 1 inh INHALATION Q4H metformin 500 mg tablet 1,000 mg PO BID Hold Instructions: Resume on 01/20/23. Hold until nausea, vomiting, oral intake improve insulin glargine [Lantus Solostar U-100 Insulin] 100 unit/mL (3 mL) insulin pen 15 unit SUBCUT BID Patient Comments: inject 20 units subcutaneous twice daily scopolamine base 1 mg over 3 days patch 3 day 1 patch transdermal Q3D PRN (Reason: nausea and vomiting) Qty: 4 0RF bisacodyl [Dulcolax (bisacodyl)] 10 mg suppository 10 mg WA DAILY 3 Days Qty: 12 0RF Rx Instructions: Hold for diarrhea dicyclomine 20 mg tablet 20 mg PO TID PRN (Reason: abdominal pain) Qty: 30 0RF hyoscyamine sulfate [Levsin/SL] 0.125 mg tablet, sublingual 0.125 mg PO TID PRN (Reason: abdominal pain) Qty: 10 0RF ondansetron 4 mg tablet,disintegrating 4 mg PO Q8H PRN PRN (Reason: Nausea) Qty: 10 0RF promethazine 25 mg tablet 25 mg PO TID PRN (Reason: nausea and vomiting) Qty: 20 0RF trazodone 300 mg tablet 300 mg PO QHS Patient Comments: take 1 tablets 30 minutes before bedtime lansoprazole [Prevacid] 30 mg capsule,delayed release(DR/EC) 30 mg PO DAILY Qty: 14 0RF dicyclomine 10 mg capsule 20 mg PO TIDAC Qty: 20 0RF sulfamethoxazole-trimethoprim [Bactrim DS] 800-160 mg tablet 1 tab PO BID 7 Days Qty: 14 0RF amoxicillin-pot clavulanate 875-125 mg tablet 1 tab PO BID 7 Days Qty: 14 0RF hydrocodone-acetaminophen 5-325 mg tablet 1 tab PO Q6H PRN PRN (Reason: Pain) 3 Days Qty: 12 0RF ondansetron 4 mg tablet,disintegrating 4 mg PO TID PRN (Reason: nausea and vomiting) Qty: 21 0RF polyethylene glycol 3350 [Miralax] 17 gram/dose powder 17 g PO DAILY PRN (Reason: constipation) Qty: 510 0RF ondansetron 4 mg tablet,disintegrating 4 mg PO Q8H PRN PRN (Reason: Nausea) Qty: 10 0RF promethazine 25 mg tablet 25 mg PO Q6H PRN PRN (Reason: Nausea) Qty: 10 0RF promethazine [Promethegan] 25 mg suppository 25 mg WA Q6H PRN PRN (Reason: Nausea) Qty: 6 0RF omeprazole 40 mg capsule,delayed release(DR/EC) 40 mg PO BID Qty: 60 2RF Rx Instructions: take two times a day for 8 weeks then once a day Primary Care Provider: Care Physician,No Primary Referrals: Counseling,Center [Group of Physicians] - As soon as possible Care Physician,No Primary [Primary Care Provider] - Activity Restrictions/Additional Instructions: I think this was all secondary to anxiety. Call and follow-up with the counseling center soon as possible. They can get you on medications to help you with anxiety. Disposition Disposition: Home, Self Care
[2023-04-15] MEDS: LORazepam 1 MG Tablet PO (12:07)
[2023-04-15 13:43] VITALS: BP 122/58; PULSE 72; RESP 16; O2SAT 99
== END 2023-04-15 13:51 | disposition home or self-care (01) ==
PROVIDERS: Emergency Provider Emergency Medicine; Visit Provider Emergency Medicine
DX: F41.9 Anxiety disorder, unspecified (principal); E11.42 Type 2 diabetes mellitus with diabetic polyneuropathy; I10 Essential (primary) hypertension; J45.909 Unspecified asthma, uncomplicated; F17.210 Nicotine dependence, cigarettes, uncomplicated
CPT/HCPCS: 99282

== ENCOUNTER 2023-05-04 09:58 | Inpatient (IN) | payer MEDICAID, SELFPAY ==
[2023-05-04] VITALS (11 sets, daily range): BP systolic 82–136; BP diastolic 57–89; PULSE 72–123; RESP 14–18; TEMP 36.3–37.2; O2SAT 95–100; BMI 33.5
--- NOTE | 2023-05-04 10:54 | EDS_ITS ---
HPI History of Present Illness Chief Complaint: Wound Detail of Chief Complaint: Redness and swelling to right foot with chronic wound Informant: patient Narrative Narrative: Patient presents with redness and swelling to the right foot. She states she noticed the redness and swelling last evening. Patient states that about a year ago she had a debridement of her foot by Dr. Matias whom she has not been able to see recently because he owes them money. Patient states that she has a chronic wound to the bottom of her foot that never has healed. She started having some drainage from the wound last evening. She had sweats last night but she denies any fever. Patient is a diabetic. [facility] Medical History (Updated 05/04/23 @ 13:[address] Rickey Gifford, DO) Anxiety Asthma Constipation Depression Diabetes mellitus with diabetic polyneuropathy Elevated serum creatinine Failure of outpatient treatment Hypertension Neuropathy, diabetic Type 2 diabetes mellitus with foot ulcer Home Medications albuterol sulfate 90 mcg/actuation aerosol inhaler (Ventolin HFA) 1 inh inhalation Q4H SOB 04/06/22 [History Last Taken 06/24/22] metformin 500 mg tablet 1,000 mg PO BID DM 06/24/22 [History Last Taken 06/24/22] insulin glargine 100 unit/mL (3 mL) subcutaneous pen (Lantus Solostar U-100 Insulin) 15 unit subcut BID diabetes 08/12/22 [History Last Taken Unknown] hyoscyamine sulfate 0.125 mg sublingual tablet (Levsin/SL) 0.125 mg PO TID PRN abdominal pain #10 tabs 01/07/23 [Rx Last Taken Unknown] ondansetron 4 mg disintegrating tablet 4 mg PO Q8H PRN PRN Nausea #10 tabs 01/07/23 [Rx Last Taken Unknown] promethazine 25 mg tablet 25 mg PO TID PRN nausea and vomiting #20 tabs 01/09/23 [Rx Last Taken Unknown] trazodone 300 mg tablet 300 mg PO QHS 01/12/23 [History Last Taken Unknown] bisacodyl 10 mg rectal suppository (Dulcolax (bisacodyl)) 10 mg OR DAILY 3 days #12 ea 01/15/23 [Rx Last Taken Unknown] scopolamine base 1 mg over 3 days transdermal patch 1 patch transdermal Q3D PRN nausea and vomiting #4 ea 01/15/23 [Rx Last Taken Unknown] omeprazole 40 mg capsule,delayed release 40 mg PO BID #60 caps 01/19/23 [Rx Last Taken Unknown] lansoprazole 30 mg capsule,delayed release (Prevacid) 30 mg PO DAILY #14 caps 02/08/23 [Rx Last Taken Unknown] sulfamethoxazole 800 mg-trimethoprim 160 mg tablet (Bactrim DS) 1 tab PO BID 7 days #14 tabs 02/24/23 [Rx Last Taken Unknown] ondansetron 4 mg disintegrating tablet 4 mg PO TID PRN nausea and vomiting #21 tabs 02/26/23 [Rx Last Taken Unknown] polyethylene glycol 3350 17 gram/dose oral powder (Miralax) 17 g PO DAILY PRN constipation #510 grams 02/26/23 [Rx Last Taken Unknown] ondansetron 4 mg disintegrating tablet 4 mg PO Q8H PRN PRN Nausea #10 tabs 03/06/23 [Rx Last Taken Unknown] promethazine 25 mg rectal suppository (Promethegan) 25 mg OR Q6H PRN PRN Nausea #6 supp 04/13/23 [Rx Last Taken Unknown] promethazine 25 mg tablet 25 mg PO Q6H PRN PRN Nausea #10 TABLETS 04/13/23 [Rx Last Taken Unknown] dicyclomine 20 mg tablet 20 mg PO TID PRN abdominal pain #30 tabs 04/14/23 [Rx Last Taken Unknown] Allergy/AdvReac Type Severity Reaction Status Date / Time No Known Allergies Allergy Verified 05/04/23 10:01 Family History Other Bleeding disorder Cancer Diabetes Hypertension Surgical History Hx of foot surgery Social History Smoking Status: Current every day smoker tobacco type: cigarettes alcohol intake: never substance use type: does not use what type of physical activity do you participate in: none ROS ROS ED Review of Systems ROS Unobtainable: other Constitutional Constitutional ED: Reports lethargy; Denies chills, fever(s), sweats or weight loss Eyes Eyes: Denies blurry vision, change in vision or diplopia ENT ENT ED: Denies rhinorrhea or sore throat Cardiovascular Cardiovascular: Denies chest pain, orthopnea or racing heartbeat Respiratory/Chest Respiratory/Chest: Denies cough, dyspnea, dyspnea on exertion, orthopnea or sputum Gastrointestinal Gastrointestinal: Denies abdominal pain, diarrhea, nausea or vomiting Genitourinary Genitourinary ED: Denies dysuria, hematuria or urinary frequency Musculoskeletal Musculoskeletal: Reports other Details: Redness and swelling to the right foot with chronic wound ; Denies arthralgias, back pain, myalgias or neck pain Integumentary Denies abscess, Abrasions or rash Neurologic Neurologic: Denies headache(s) or weakness Psychiatric Psychiatric: Denies anxiety, depression or suicidal thoughts Endocrine Endocrinology: Denies polydipsia, polyphagia or polyuria Hematologic/Lymphatic Hematologic/Lymphatic: Denies easy bleeding, easy bruising or lymphadenopathy Allergic/Immunologic Allergic/Immunologic ED: Denies mouth swelling, tongue swelling or urticaria EXAM Physical Exam Const Vital Signs: 05/04/23 09:59 05/04/23 12:21 05/04/23 13:28 Temperature 98 F 98.9 F 98.9 F Temperature Source Temporal Oral Temporal Pulse Rate 123 H 116 H 106 H Respiratory Rate 18 18 14 Blood Pressure 122/66 H 122/66 H 129/89 H Blood Pressure Mean 84 84 102 Blood Pressure Source Blood Pressure Position Blood Pressure Location Pulse Ox 100 96 100 Oxygen Delivery Method Room Air Room Air Room Air Oxygen Flow Rate (L/min) 05/04/23 13:28 05/04/23 14:51 05/04/23 15:23 Temperature 97.4 F L 97.4 F L Temperature Source Oral Oral Pulse Rate 106 H 72 84 Respiratory Rate 14 16 16 Blood Pressure 129/89 H 136/71 H 134/69 H Blood Pressure Mean 102 92 90 Blood Pressure Source Monitor Blood Pressure Position Supine Blood Pressure Location Right Arm Pulse Ox 100 97 Oxygen Delivery Method Room Air Room Air Room Air Oxygen Flow Rate (L/min) 96 Positive well nourished and well developed General Appearance ED: well developed and NAD HEENT Reports TM's clear and moist mucous membranes normocephalic and atraumatic; Negative for trauma or tenderness Tympanic Membrane ED: Yes TM's clear Eyes PERRL and EOMs intact bilaterally General Eye ED: Negative for pale conjunctiva or scleral icterus Neck no lymphadenopathy, supple and no JVD General: Negative for tenderness Chest Wall inspection of chest normal and palpation of chest normal Chest: Negative for tenderness Resp normal respiratory effort and clear to auscultation bilaterally Effort and Inspection: Negative for respiratory distress or pain with movement Auscultation: Negative for rhonchi, wheezes or diminished lung sounds Cardio regular rate, regular rhythm, S1 normal heart sound, S2 normal heart sound and no murmurs Peripheral Pulses: pulses 2+ throughout GI normal to inspection, nondistended, normoactive bowel sounds, soft to palpation, non-tender, non-distended and no masses Back/Spine no CVA tenderness and no thoracic nor lumbar tenderness Extremity Extremity Narrative: Right foot-patient has diffuse soft tissue swelling of the foot. There is erythema and cellulitic changes noted. Patient has a wound to the plantar aspect over the area of the fourth M TP joint that has small amount of purulent drainage from it. General Extremety ED: Negative for edema General Extremity: Negative for edema Neuro oriented x3, CN's II-XII intact bilaterally, no sensory deficits noted and gait normal Sensorium / Orientation: awake, alert, oriented to person, oriented to place and oriented to time Motor Exam: strength 5/5 throughout and strength abnormal Psych mental status grossly normal Skin no rashes or lesions noted and no wounds MDM MDM MDM Narrative Medical decision making narrative: Patient presents with a diabetic foot infection. IV line established. Patient started on Unasyn and vancomycin IV. CBC with differential showed an elevated white count 11.1 with unremarkable chemistries. Lactate was normal. Blood cultures ordered. I ordered a wound culture. X-ray of the foot shows gas with in the soft tissues with no evidence of osteomyelitis. Discussed case with podiatry on-call Dr. Forrest who presented to the emergency department to evaluate patient. Discussed case with hospitalist will evaluate patient for admission. Lab Data Attestation: I reviewed the patient's lab results. Labs: Laboratory Results - last 24 hr 05/04/23 11:40 WBC 11.1 H RBC 3.68 L Hgb 10.5 L Hct 32.8 L MCV 89.1 MCH 28.5 MCHC 32.0 RDW Std Deviation 52.3 H RDW Coeff of John 15.9 H Plt Count 333 MPV 9.2 Immature Gran % (Auto) 1.300 H Neut % (Auto) 73.2 H Lymph % (Auto) 14.9 L [place] % (Auto) 10.2 H Eos % (Auto) 0.0 Baso % (Auto) 0.4 Absolute Neuts (auto) 8.1 H Absolute Lymphs (auto) 1.65 Nucleated RBC % 0 Sodium 133 L Potassium 3.8 Chloride 102 Carbon Dioxide 27.0 Anion Gap 4 L BUN 9 Creatinine 0.72 Estim Creat Clear Calc 105.98 Est GFR (MDRD) Af Amer 121 Est GFR (MDRD) Non-Af 100 BUN/Creatinine Ratio 12.5 Glucose 207 H Lactic Acid 1.9 Calcium 8.7 Radiography Diagnostic Testing: Clinical Impression(s) from Imaging Studies Foot X-Ray 05/04/23 11:34 IMPRESSION: 1. Small amounts of soft tissue air is present between the fourth and fifth proximal phalanges and in the amputation bed of the fifth digit with diffuse swelling and increased density of the soft tissues in this region. Soft tissue ulcer/open wound is suspected in these regions. Gas gangrene can also present in this manner. There is no demonstrated evidence of osteomyelitis. Electronically Signed: Sam Hendrickson MD at 11:59 EDT Reading Location ID and State: [facility] / [place] , Service support , Three-view x-rays of the right foot obtained interpreted by myself as soft tissue swelling with gas in the soft tissues. Radiology in agreement. There is no evidence of osteomyelitis. Discharge Plan Dx/Rx/DC Orders Clinical Impression: Diabetic foot infection, Diabetes, Leukocytosis Disposition Disposition: Acute Care Hospital [facility] Discharge Date/Time: 05/04/23 15:25
--- NOTE | 2023-05-04 11:34 | RAD_ITS ---
STUDY: X-RAY - RIGHT FOOT CLINICAL: Female, 33 years old. infection TECHNIQUE: 3 view(s) of the foot. 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 Small amounts of soft tissue air is present between the fourth and fifth proximal phalanges and in the amputation bed of the fifth digit with diffuse swelling and increased density of the soft tissues in this region. Soft tissue ulcer/open wound is suspected in these regions. Gas gangrene can also present in this manner. There is no demonstrated evidence of osteomyelitis. Normal talus, calcaneus, and tarsal bones. Normal visualized subtalar, talonavicular, calcaneocuboid, tarsal and tarsometatarsal articulations. Normal remaining metatarsi. Normal first through fourth phalanges. RAD/Foot min 3 Views IMPRESSION: 1. Small amounts of soft tissue air is present between the fourth and fifth proximal phalanges and in the amputation bed of the fifth digit with diffuse swelling and increased density of the soft tissues in this region. Soft tissue ulcer/open wound is suspected in these regions. Gas gangrene can also present in this manner. There is no demonstrated evidence of osteomyelitis. Electronically Signed: Sam Hendrickson MD at 11:59 EDT ,
[2023-05-04 12:03] LABS: Absolute Lymphocyte Count 1.65 X10^3/uL (0.83-4.51); Absolute Neutrophil Count 8.1 X10^3/uL (2.0-7.7); Basophil# 0.04 X10^3/uL; Basophil% 0.4 % (0-1); Hematocrit 32.8 % (37-47); Hemoglobin 10.5 g/dL (12.0-15.0); Lymphocyte # 1.65 X10^3/ul (0.83-4.51); Lymphocyte % 14.9 % (19-41); Mean Corpuscular Hgb 28.5 pg (27.0-32.0); Mean Corpuscular Volume 89.1 fL (81-99); Mean Platelet Vol. 9.2 fl (6.2-12.0); Monocyte# 1.13 X10^3/uL; Monocyte% 10.2 % (0-10); NRBC Flagged by Analyzer 0 % (0-5); Neutrophil # 8.09 X10^3/uL (2.7-7.7); Neutrophil % 73.2 % (47-70); Platelet Count 333 K/mm3 (150-450); RBC Distribution Width CV 15.9 % (11.6-14.6); RBC Distribution Width SD 52.3 fl (35.1-43.9); Red Blood Count 3.68 M/mm3 (4.2-5.4); White Blood Count 11.1 K/mm3 (4.4-11.0)
[2023-05-04] MEDS: Ampicillin/Sulbactam 3 GM in 0.9% Normal Saline (100mL MB+) 100 ML IV (12:13)
[2023-05-04 12:16] LABS: Anion Gap 4 (5-15); BUN 9 mg/dL (7-18); BUN/Creat Ratio 12.5 RATIO (10-20); Calcium,Total 8.7 mg/dL (8.5-10.1); Chloride 102 mmol/L (98-107); Creatinine, Serum 0.72 mg/dL (0.55-1.02); EST Glomerular Filtration Rate 100 mL/min (>60); Est Glom Filt Rate - Afr Amer 121 mL/min (>60); Estimated Creatinine Clearance 105.98 ml/min; Glucose 207 mg/dL (74-106); Potassium 3.8 mmol/L (3.5-5.1); Sodium Level 133 mmol/L (136-145)
[2023-05-04 12:22] LABS: Lactic Acid 1.9 mmol/L (0.4-1.9)
--- NOTE | 2023-05-04 13:09 | HP.PCM.HOS_ITS ---
[facility] - General General Date of Service: 05/04/23 Chief Complaint: right foot infection. [facility] Narrative SHOLA PATTON, is a 33 F who presents with worsening redness and pain in her right foot. Patient has had a chronic wound of her right foot that has waxed and waned but last night, became much more red, warm associated with fever and chills. She was concerned and presented to the emergency room. Patient had an x-ray of her foot that show small amounts of soft tissue air between the fourth and fifth toes. Patient was seen in consultation by Dr. Forrest, podiatry, explained to take the patient to surgery today. Patient received vancomycin in the emergency room. [facility] Medical History (Updated 05/04/23 @ 13:[address] Rickey Gifford, ) Anxiety Asthma Constipation Depression Diabetes mellitus with diabetic polyneuropathy Elevated serum creatinine Failure of outpatient treatment Hypertension Neuropathy, diabetic Type 2 diabetes mellitus with foot ulcer Home Medications albuterol sulfate 90 mcg/actuation aerosol inhaler (Ventolin HFA) 1 inh inhalation Q4H SOB 04/06/22 [History Last Taken 06/24/22] metformin 500 mg tablet 1,000 mg PO BID DM 06/24/22 [History Last Taken 06/24/22] insulin glargine 100 unit/mL (3 mL) subcutaneous pen (Lantus Solostar U-100 Insulin) 15 unit subcut BID diabetes 08/12/22 [History Last Taken Unknown] hyoscyamine sulfate 0.125 mg sublingual tablet (Levsin/SL) 0.125 mg PO TID PRN abdominal pain #10 tabs 01/07/23 [Rx Last Taken Unknown] ondansetron 4 mg disintegrating tablet 4 mg PO Q8H PRN PRN Nausea #10 tabs 01/07/23 [Rx Last Taken Unknown] promethazine 25 mg tablet 25 mg PO TID PRN nausea and vomiting #20 tabs 01/09/23 [Rx Last Taken Unknown] trazodone 300 mg tablet 300 mg PO QHS 01/12/23 [History Last Taken Unknown] bisacodyl 10 mg rectal suppository (Dulcolax (bisacodyl)) 10 mg UT DAILY 3 days #12 ea 01/15/23 [Rx Last Taken Unknown] scopolamine base 1 mg over 3 days transdermal patch 1 patch transdermal Q3D PRN nausea and vomiting #4 ea 01/15/23 [Rx Last Taken Unknown] omeprazole 40 mg capsule,delayed release 40 mg PO BID #60 caps 01/19/23 [Rx Last Taken Unknown] dicyclomine 10 mg capsule 20 mg (2 x 10 mg) PO TIDAC #20 CAPSULES 02/08/23 [Rx Last Taken Unknown] lansoprazole 30 mg capsule,delayed release (Prevacid) 30 mg PO DAILY #14 caps 02/08/23 [Rx Last Taken Unknown] sulfamethoxazole 800 mg-trimethoprim 160 mg tablet (Bactrim DS) 1 tab PO BID 7 days #14 tabs 02/24/23 [Rx Last Taken Unknown] amoxicillin 875 mg-potassium clavulanate 125 mg tablet 1 tab PO BID 7 days #14 tabs 02/26/23 [Rx Last Taken Unknown] hydrocodone-acetaminophen 5-325mg 5mg-325mg 1 tab PO Q6H PRN PRN Pain 3 days #12 TABLETS 02/26/23 [Rx Last Taken Unknown] ondansetron 4 mg disintegrating tablet 4 mg PO TID PRN nausea and vomiting #21 tabs 02/26/23 [Rx Last Taken Unknown] polyethylene glycol 3350 17 gram/dose oral powder (Miralax) 17 g PO DAILY PRN constipation #510 grams 02/26/23 [Rx Last Taken Unknown] ondansetron 4 mg disintegrating tablet 4 mg PO Q8H PRN PRN Nausea #10 tabs 03/06/23 [Rx Last Taken Unknown] promethazine 25 mg rectal suppository (Promethegan) 25 mg UT Q6H PRN PRN Nausea #6 supp 04/13/23 [Rx Last Taken Unknown] promethazine 25 mg tablet 25 mg PO Q6H PRN PRN Nausea #10 TABLETS 04/13/23 [Rx Last Taken Unknown] dicyclomine 20 mg tablet 20 mg PO TID PRN abdominal pain #30 tabs 04/14/23 [Rx Last Taken Unknown] Allergy/AdvReac Type Severity Reaction Status Date / Time No Known Allergies Allergy Verified 05/04/23 10:01 Family History Other Bleeding disorder Cancer Diabetes Hypertension Surgical History Hx of foot surgery Social History Smoking Status: Current every day smoker tobacco type: cigarettes alcohol intake: never substance use type: does not use what type of physical activity do you participate in: none ROS ROS Narrative All review of systems were negative except as mentioned above in the history of present illness and the other review of systems. Vital Signs Vital Signs Vital Signs: 05/04/23 09:59 05/04/23 12:21 Temperature 36.6 C 37.2 C Temperature Source Temporal Oral Pulse Rate 123 H 116 H Respiratory Rate 18 18 Blood Pressure 122/66 H 122/66 H Blood Pressure Mean 84 84 Pulse Ox 100 96 Oxygen Delivery Method Room Air Room Air Weight Weight: 94.2 kg Body Mass Index (BMI) 33.5 Physical Exam Const alert and no apparent distress HEENT normocephalic and head/scalp atraumatic Resp normal respiratory effort, no retractions, no use of accessory muscles and clear to auscultation bilaterally Cardio regular rate, regular rhythm, S1 normal heart sound and S2 normal heart sound GI normal to inspection, nondistended, normoactive bowel sounds, soft to palpation, non-tender and non-distended Extremity full ROM Extremity Narrative: Swelling on the dorsum of her right foot. Absent the fourth toe on the right foot. Neuro oriented x3 and CN's II-XII intact bilaterally Results Lab / Micro Data 05/04/23 11:40 05/04/23 11:40 Labs: Laboratory Results - last 24 hr 05/04/23 11:40: WBC 11.1 H, RBC 3.68 L, Hgb 10.5 L, Hct 32.8 L, MCV 89.1, MCH 28.5, MCHC 32.0, RDW Std Deviation 52.3 H, RDW Coeff of John 15.9 H, Plt Count 333, MPV 9.2, Immature Gran % (Auto) 1.300 H, Neut % (Auto) 73.2 H, Lymph % (Auto) 14.9 L, [place] % (Auto) 10.2 H, Eos % (Auto) 0.0, Baso % (Auto) 0.4, Absolute Neuts (auto) 8.1 H, Absolute Lymphs (auto) 1.65, Nucleated RBC % 0, Sodium 133 L, Potassium 3.8, Chloride 102, Carbon Dioxide 27.0, Anion Gap 4 L, BUN 9, Creatinine 0.72, Estim Creat Clear Calc 105.98, Est GFR (MDRD) Af Amer 121, Est GFR (MDRD) Non-Af 100, BUN/Creatinine Ratio 12.5, Glucose 207 H, Lactic Acid 1.9, Calcium 8.7 Radiology Impression Foot X-Ray 05/04/23 11:34 IMPRESSION: 1. Small amounts of soft tissue air is present between the fourth and fifth proximal phalanges and in the amputation bed of the fifth digit with diffuse swelling and increased density of the soft tissues in this region. Soft tissue ulcer/open wound is suspected in these regions. Gas gangrene can also present in this manner. There is no demonstrated evidence of osteomyelitis. Electronically Signed: Sam Hendrickson MD at 11:59 EDT Reading Location ID and State: [address] [place] [address] , Service support , Assessment & Plan Assessment/Plan (1) Diabetic foot infection: PLAN: With what appears to be gas on the x-ray. Patient has been medically cleared to proceed with surgery. Patient seen by Dr. Forrest of podiatry and plan taken the patient to surgery today. We will continue with antibiotics with vancomycin and also add piperacillin /tazobactam Follow-up cultures Nonweightbearing on right lower extremity until okayed by podiatry. PLAN: Plan Chronic conditions * Diabetes mellitus type 2: Continue with glargine. Hold metformin for the time being. Add sliding scale insulin. * Diabetic neuropathy VTE prophylaxis with enoxaparin. Charges/Coding Visit Charges Inpatient E&M: 58042 Init Hosp L2
[2023-05-04] MEDS: Vancomycin HCl 2,000 MG in 0.9% Normal Saline (500mL Bag) 500 ML 250 MG IV (13:15)
--- NOTE | 2023-05-04 13:23 | NURSING ---
MED SURG KASEY DIABETIC FOOT INFECTION, LEUKOCYTOSIS
[2023-05-04] MEDS: Ondansetron 4 MG/2 ML Vial IV (15:15)
[2023-05-04] MEDS: Morphine 4 MG/ML Syringe IV (15:15)
[2023-05-04 16:32] LABS: Bedside Glucose 140 mg/dL (74-106)
--- NOTE | 2023-05-04 16:42 | CON.PCM_ITS ---
Assessment & Plan Assessment/Plan (1) Type 2 diabetes mellitus with peripheral neuropathy: PLAN: Patient was examined evaluated. All findings were discussed with the patient. All questions were answered to the patient's satisfaction. Patient shows evidence of worsening diabetic foot infection to the right foot. There is concern for gas gangrene which is confirmed on plain film radiographs. Will take the patient to the operating room to perform incision and drainage of the right foot get deep cultures and leave the wound open with packing to plan the more definitive procedure in the next 48 to 72 hours. We will get an MRI to rule out osteomyelitis of the right foot after surgery today. Recommend for the patient to have strict glycemic control while on the floor. Educated the patient in great detail that she is at risk for transmetatarsal amputation due to the nature of her current status. Again the patient was understanding. Patient will be admitted under medicine and Dr. Forrest will follow with podiatry service. HbA1c: Pending CRP: Pending ESR: Pending Wound cultures: Pending Blood cultures: Pending Medicine: On board, medical management Podiatry will continue to follow with dressing changes with the patient is in house. Please reach out to Dr. Forrest with any questions or concerns. Thank you for the consultation! (2) Non-pressure chronic ulcer of other part of right foot with fat layer e xposed: (3) Gas gangrene: HPI Consult Data Date of Consult: 05/04/23 HPI Narrative Reason for Consultation: Gas gangrene right foot HPI Narrative: SHOLA PATTON, is a 33 F who presented to [facility] emergency department for concerns for worsening redness, pain and drainage to the right foot. Patient is a diabetic who admits to having a chronic ulceration to the plantar aspect of her right foot. The pain to the right foot is what initially brought the patient to the emergency department. Radiographs showed evidence of emphysema and concern for gas infection. Podiatry was ultimately consulted for concern of a diabetic infection as well as the need for surgical intervention. The patient denies any trauma. Denies constitutional symptoms. No other pedal complaints at this time. [facility] Medical History Anxiety Asthma Constipation Depression Diabetes mellitus with diabetic polyneuropathy Elevated serum creatinine Failure of outpatient treatment Hypertension Neuropathy, diabetic Type 2 diabetes mellitus with foot ulcer Home Medications albuterol sulfate 90 mcg/actuation aerosol inhaler (Ventolin HFA) 1 inh inhalation Q4H SOB 04/06/22 [History Last Taken 06/24/22] metformin 500 mg tablet 1,000 mg PO BID DM 06/24/22 [History Last Taken 06/24/22] insulin glargine 100 unit/mL (3 mL) subcutaneous pen (Lantus Solostar U-100 Insulin) 15 unit subcut BID diabetes 08/12/22 [History Last Taken Unknown] hyoscyamine sulfate 0.125 mg sublingual tablet (Levsin/SL) 0.125 mg PO TID PRN abdominal pain #10 tabs 01/07/23 [Rx Last Taken Unknown] ondansetron 4 mg disintegrating tablet 4 mg PO Q8H PRN PRN Nausea #10 tabs 01/07/23 [Rx Last Taken Unknown] promethazine 25 mg tablet 25 mg PO TID PRN nausea and vomiting #20 tabs 01/09/23 [Rx Last Taken Unknown] trazodone 300 mg tablet 300 mg PO QHS 01/12/23 [History Last Taken Unknown] bisacodyl 10 mg rectal suppository (Dulcolax (bisacodyl)) 10 mg MI DAILY 3 days #12 ea 01/15/23 [Rx Last Taken Unknown] scopolamine base 1 mg over 3 days transdermal patch 1 patch transdermal Q3D PRN nausea and vomiting #4 ea 01/15/23 [Rx Last Taken Unknown] omeprazole 40 mg capsule,delayed release 40 mg PO BID #60 caps 01/19/23 [Rx Last Taken Unknown] lansoprazole 30 mg capsule,delayed release (Prevacid) 30 mg PO DAILY #14 caps 02/08/23 [Rx Last Taken Unknown] sulfamethoxazole 800 mg-trimethoprim 160 mg tablet (Bactrim DS) 1 tab PO BID 7 days #14 tabs 02/24/23 [Rx Last Taken Unknown] ondansetron 4 mg disintegrating tablet 4 mg PO TID PRN nausea and vomiting #21 tabs 02/26/23 [Rx Last Taken Unknown] polyethylene glycol 3350 17 gram/dose oral powder (Miralax) 17 g PO DAILY PRN constipation #510 grams 02/26/23 [Rx Last Taken Unknown] ondansetron 4 mg disintegrating tablet 4 mg PO Q8H PRN PRN Nausea #10 tabs 02/10 01/01 [Rx Last Taken Unknown] promethazine 25 mg rectal suppository (Promethegan) 25 mg MI Q6H PRN PRN Nausea #6 supp 04/13/23 [Rx Last Taken Unknown] promethazine 25 mg tablet 25 mg PO Q6H PRN PRN Nausea #10 TABLETS 04/13/23 [Rx Last Taken Unknown] dicyclomine 20 mg tablet 20 mg PO TID PRN abdominal pain #30 tabs 04/14/23 [Rx Last Taken Unknown] Allergy/AdvReac Type Severity Reaction Status Date / Time No Known Allergies Allergy Verified 05/04/23 10:01 Family History Other Bleeding disorder Cancer Diabetes Hypertension Surgical History Hx of foot surgery Social History Smoking Status: Current every day smoker tobacco type: cigarettes alcohol intake: never substance use type: does not use what type of physical activity do you participate in: none Physical Exam Narrative Vascular: DP and PT pulses are palpable. CFT is brisk. Skin temperature gradient is warm to warm from proximal ankle to distal digits to right lower extremity. Evidence of erythema with proximal streaking. Nonpitting edema is also appreciated to the right foot. Neurological: Light touch intact. Protective sensation is absent. Patient does not respond to painful stimuli. Dermatological: Evidence of full-thickness ulceration with draining purulence to the plantar aspect of the right foot. No dorsal wounds are appreciated. Musculoskeletal: Muscle strength is 5 out of 5 in all quadrants bilateral. Palpable bogginess and flocculence. No evidence of palpable crepitus. No pain on palpation to the full-thickness ulceration of the plantar aspect of the right foot. Evidence of right fifth digit amputation. No pain with calf compression. Const alert, oriented x3 and no apparent distress Lab / Micro Data 05/04/23 11:40 05/04/23 11:40 Labs: Laboratory Results - last 24 hr 05/04/23 11:40: WBC 11.1 H, RBC 3.68 L, Hgb 10.5 L, Hct 32.8 L, MCV 89.1, MCH 28.5, MCHC 32.0, RDW Std Deviation 52.3 H, RDW Coeff of John 15.9 H, Plt Count 333, MPV 9.2, Immature Gran % (Auto) 1.300 H, Neut % (Auto) 73.2 H, Lymph % (Auto) 14.9 L, [place] % (Auto) 10.2 H, Eos % (Auto) 0.0, Baso % (Auto) 0.4, Absolute Neuts (auto) 8.1 H, Absolute Lymphs (auto) 1.65, Nucleated RBC % 0, Sodium 133 L, Potassium 3.8, Chloride 102, Carbon Dioxide 27.0, Anion Gap 4 L, BUN 9, Creatinine 0.72, Estim Creat Clear Calc 105.98, Est GFR (MDRD) Af Amer 121, Est GFR (MDRD) Non-Af 100, BUN/Creatinine Ratio 12.5, Glucose 207 H, Lactic Acid 1.9, Calcium 8.7 05/04/23 16:14: POC Glucose 140 H Radiology Impression Foot X-Ray 05/04/23 11:34 IMPRESSION: 1. Small amounts of soft tissue air is present between the fourth and fifth proximal phalanges and in the amputation bed of the fifth digit with diffuse swelling and increased density of the soft tissues in this region. Soft tissue ulcer/open wound is suspected in these regions. Gas gangrene can also present in this manner. There is no demonstrated evidence of osteomyelitis. Electronically Signed: Sam Hendrickson MD at 11:59 EDT ,
[2023-05-04 16:54] LABS: Internal QC Validated? YES +Cl - CLEAR BKGD; Pregnancy, Urine Negative Negative
--- NOTE | 2023-05-04 17:00 | MRI_ITS ---
STUDY: MRI RIGHT FOOT REASON FOR EXAM: Female, 33 years old. Rule out osteomyelitis, right foot, worsening diabetic infection, plantar ulcer, I and D 05/04/23, previous amputation 5th digit. TECHNIQUE: Standardized fat and water weighted pulse sequences were obtained in all 3 orthogonal planes. COMPARISON: Right foot radiographs dated 05/04/2023. FINDINGS: There is amputation of the fifth digit through the midshaft of the fifth metatarsal. There is an ulcer at the plantar aspect of the forefoot with suspected adjacent abscess in the plantar subcutaneous fat extending into the third intermetatarsal space, with tiny air bubbles (axial STIR series 9 image 30). Preserved T1 bone marrow signal of the metatarsals, phalanges and visualized distal tarsal row, without osteomyelitis, fracture, periostitis, erosions or reactive bone edema. Normal sesamoids without sesamoiditis, fracture or avascular necrosis. Normal joint spaces, without effusions. Normal visualized Chopart and Lisfranc joints and normal Lisfranc ligament. Normal visualized flexor and extensor tendons. Normal visualized plantar fascia without fasciitis, fibromatosis or tear. There is atrophy, fatty infiltration, and edema of the intrinsic muscles of the foot. There is moderate subcutaneous soft tissue edema along the dorsum of the foot. MRI/Lower Ext/No Jt/w/o IMPRESSION: Amputation of the fifth digit through the midshaft of the fifth metatarsal. Ulcer at the plantar aspect of the forefoot with suspected adjacent abscess in the plantar subcutaneous fat extending into the third intermetatarsal space, with tiny air bubbles. No osteomyelitis. Atrophy, fatty infiltration, and edema of the intrinsic muscles of the foot. Moderate subcutaneous soft tissue edema along the dorsum of the foot. Electronically Signed: Naga Lr MD at 11:07 EDT ,
[2023-05-04] MEDS: Bupivacaine 0.5% PF 10 ML VIAL (17:48)
--- NOTE | 2023-05-04 18:00 | OP.PCM_ITS ---
Problems Associated Problem List Diagnoses (1) Gas gangrene: (2) Non-pressure chronic ulcer of other part of right foot with fat layer exposed: (3) Type 2 diabetes mellitus with peripheral neuropathy: Report of Operation Date of Procedure: 05/04/23 Pre-Operative Diagnosis: 1. Abscess, right foot 2. Gas gangrene, right foot 3. Full-thickness ulceration with fat exposed, right foot 4. Diabetes mellitus type 2 with peripheral neuropathy history of amputation, right foot Post-Operative Diagnosis: 1. Abscess, right foot 2. Gas gangrene, right foot 3. Full-thickness ulceration with fat exposed, right foot 4. Diabetes mellitus type 2 with peripheral neuropathy history of amputation, right foot Surgery/Procedure Performed:: 1. Incision and drainage, right foot Description of Surgical Findings:: 1. 5 to 10 cc of purulent drainage noted prior to incision. 2. After 9000 mL of pulse lavage showed evidence of healthy granular tissue to the dorsal and plantar incision of the right foot. Surgeon: Stephan Forrest web applications programmer: None Type of Anesthesia: Local and MAC Anesthesiologist: Abdirahman Morton Special Medications: None Specimen's removed: 1. Soft tissue, right foot to be sent off to microbiology culture and sensitivity 2. Prelavage cultures, right foot 3. Post lavage cultures, right foot Drains: None Estimated Blood Loss (mL): 20 mL Fluids Replaced: Per anesthesia Description of Procedure: Indications For Operation: Ms. Givens is a 33-year-old diabetic female who was admitted to [facility] for worsening infection to the right foot. Patient originally presented to the emergency department [facility] for increased swelling, redness and drainage to the right foot. Ultimately the pain to the right foot brought the patient to the emergency department for evaluation. Patient is a diabetic and has peripheral neuropathy. She admits that the increase in swelling as well as drainage has gotten worse over the past week. Plain film radiographs show concern for emphysema to the right plantar vault. Due to concern for gas gangrene, worsening infection as well as proximal streaking it had deemed necessary at this time to take the patient to the operating room to perform incision and drainage of the right foot with deep cultures and washout with pulse lavage.. The nature of the problem, anticipated procedures, postop recovery/convalences and risk/complications include but not limited to infection, wound healing complications, hypertrophic scarring, numbness, tingling, chronic pain, CRPS, over and under correction, recurrence of deformity, DVT and or PE and the need for further surgery have been discussed in great detail with the patient. All questions have been answered to the patient's satisfaction. There are no guarantees given as to the outcome of the procedure. Description of Procedure: Under mild sedation, the patient was brought into the operating room and placed on the operating table in supine position. Once the patient was under monitored anesthesia care anesthesia, the right lower extremity was blocked using approximately 20 cc 0.5% Marcaine plain. No tourniquet was used. The right lower extremity was prepped and draped in normal aseptic manner. Next, a timeout was then undertaken verifying the correct patient, extremity, visibility of preoperative markings, availability of the equipment. Next, attention was directed to the plantar aspect of the right foot full- thickness ulceration. Using a #15 blade a full-thickness incision down to subcutaneous tissue was performed. Expression of approximately 5 to 10 cc of purulence were noted. Continued blunt dissection was carried down to the plantar vault to the medial lateral aspect of the fourth metatarsal ray. Next attention was directed to the dorsal aspect of the right foot. Using a #15 blade a full-thickness incision down to bone along the fourth metatarsal was performed. Blunt dissection was carried down to the medial lateral aspects of the fourth metatarsal of the right foot. It was noted that there was tunneling and connecting of both incisions. Next, prelavage cultures were taken from both incisions, passed the back table to be sent off for microbiology culture and sensitivity. Next, deep soft tissue cultures were taken via rongeur and passed the back table to be sent off to microbiology for culture and sensitivity. Next, using the pulse lavage 3000 mL mechanically debrided was performed in the plantar incision. Next, attention was directed to the dorsal incision where an additional 3000 mL were mechanically debridement was performed in the dorsal incision. Next, using a combo combination of 1500 mL (x2) the dorsal and plantar incisions were further flushed out via pulse lavage for mechanical debridement. After completion of the pulse lavage there showed evidence of healthy granular tissue to the dorsal and plantar incision. Next, post lavage cultures were taken from both incisions, passed to the back table to be sent off for microbiology culture and sensitivity. The right lower extremity was wiped clean and patted dry. Both incisions were packed with quarter inch iodoform, 4 x 4's, Kerlix wrap and a double layer Eldridge compression bandage was applied to the right lower extremity. The patient tolerated the procedure and anesthesia well and apparent satisfactory condition and was transported to the PACU for further monitoring prior to discharge [home / back to the floor]. Vital signs stable and vascular status intact to all digits bilateral. Post Operative Plan: Weightbearing: Partial weightbearing to heel only to the right foot. Full weightbearing to left lower extremity Antibiotics: IV antibiotics consisting of vancomycin and Unasyn in the emergency department DVT Prophylaxis: Per medicine [place]: None Dressing: Iodoform, dry sterile dressing and a double layer Eldridge compression bandage. X-Rays: None Pain Medication: Percocet 5/325, 1 mg morphine Grafts/Implants Used: None Complications None Admit VTE Documentation VTE Present on Admission: Yes VTE Mechan Device Prophylaxis: SCD's VTE Pharm Prophylaxis ordered?: No
[2023-05-04 18:14] LABS: Erythrocyte Sedimentation Rate 88 mm/hr (0-30)
[2023-05-04 20:04] LABS: Hemoglobin A1c 7.2 % (3.8-5.6)
--- NOTE | 2023-05-04 20:27 | PHA.PHARE_ITS ---
Consult Antibiotic Management Pharmacy has been consulted to manage selected antiobiotic: Vancomycin Type of Intervention Type of Consult: New start Suspected Infection Suspected Infection: Skin/Soft tissue Prior Doses of Antibiotics Prior Doses of Antibiotics Received/Current Regimen: received vanc 2000mg IV x1 in E.R. starting at 13:15 today Labs Labs: Sodium 133 mmol/L (136-145) L 05/04/23 11:40 Potassium 3.8 mmol/L (3.5-5.1) 05/04/23 11:40 Chloride 102 mmol/L (98-107) 05/04/23 11:40 Carbon Dioxide 27.0 mmol/L (21.0-32.0) 05/04/23 11:40 Anion Gap 4 (5-15) L 05/04/23 11:40 BUN 9 mg/dL (7-18) 05/04/23 11:40 Creatinine 0.72 mg/dL (0.55-1.02) 05/04/23 11:40 Est GFR (MDRD) Af Amer 121 mL/min (>60) 05/04/23 11:40 Est GFR (MDRD) Non-Af 100 mL/min (>60) 05/04/23 11:40 BUN/Creatinine Ratio 12.5 RATIO (10-20) 05/04/23 11:40 Glucose 207 mg/dL (74-106) H 05/04/23 11:40 Dosing Weight Weight used for dosin.2 kg Estimated Creatinine Clearance Estimated Creatinine Clearance: >100ml/min Goal Trough Goal Trough: 15-20 mcg/mL Pharmacy Plan for Drug Dosing Pharmacy Plan for Drug Dosing: Starting 8 hours after the E.R. dose, will continue with 1000mg IV q8h per [facility] dosing protocol. Will check a trough before the 4th total dose tomorrow. Pharmacy Service will continue to monitor and adjust dosing as required. Follow-Up Labs Follow-Up Labs: Trough: Vancomycin Date/Time Labs Ordered Labs to be done on [date and time ordered]: 05/05/23 12:30
[2023-05-04] MEDS: Piperacil/Tazobactam 3.375 GM in 0.9% Normal Saline (50mL MB+) 50 ML IV (20:35)
[2023-05-04] MEDS: Morphine 2 MG/ML Syringe 1 MG IV (20:38)
[2023-05-04] MEDS: 0.9% Normal Saline (1000mL) 1,000 ML 125 ML IV (20:38)
[2023-05-04] MEDS: 0.9% Saline Lock 10 ML Syringe IV (20:39)
[2023-05-04 20:44] LABS: Bedside Glucose 127 mg/dL (74-106)
[2023-05-04] MEDS: Vancomycin IV 1,000 MG/200 ML BAG 200 MG IV (22:42)
[2023-05-04] MEDS: Insulin Glargine-YFGN 100 UNIT/ML Pen 15 UNIT SC (23:12)
[2023-05-05 02:54] LABS: Bedside Glucose 183 mg/dL (74-106)
[2023-05-05 03:00] VITALS: BP 132/92; PULSE 102; RESP 16; TEMP 37.9; O2SAT 100
[2023-05-05] MEDS: 0.9% Saline Lock 10 ML Syringe IV ×2 (03:34→13:06)
[2023-05-05] MEDS: Morphine 2 MG/ML Syringe 1 MG IV (03:34)
[2023-05-05] MEDS: Vancomycin IV 1,000 MG/200 ML BAG 200 MG IV ×3 (04:43→20:48)
[2023-05-05] MEDS: Piperacil/Tazobactam 3.375 GM in 0.9% Normal Saline (50mL MB+) 50 ML IV ×3 (06:13→22:28)
[2023-05-05] MEDS: 0.9% Normal Saline (250mL Bag) 250 ML 15 ML IV (06:16)
[2023-05-05 06:35] LABS: Bedside Glucose 148 mg/dL (74-106)
[2023-05-05 07:03] LABS: Absolute Lymphocyte Count 2.73 X10^3/uL (0.83-4.51); Basophil# 0.04 X10^3/uL; Basophil% 0.5 % (0-1); Hemoglobin 9.6 g/dL (12.0-15.0); Lymphocyte # 2.73 X10^3/ul (0.83-4.51); Lymphocyte % 30.9 % (19-41); Mean Corpuscular Hgb 28.3 pg (27.0-32.0); Mean Corpuscular Volume 91.4 fL (81-99); Mean Platelet Vol. 9.4 fl (6.2-12.0); Monocyte# 0.98 X10^3/uL; Monocyte% 11.1 % (0-10); NRBC Flagged by Analyzer 0 % (0-5); Neutrophil # 5.04 X10^3/uL (2.7-7.7); Neutrophil % 56.9 % (47-70); Platelet Count 305 K/mm3 (150-450); RBC Distribution Width CV 15.9 % (11.6-14.6); RBC Distribution Width SD 53.1 fl (35.1-43.9); Red Blood Count 3.39 M/mm3 (4.2-5.4); White Blood Count 8.8 K/mm3 (4.4-11.0)
[2023-05-05 07:24] LABS: Anion Gap 6 (5-15); BUN 9 mg/dL (7-18); BUN/Creat Ratio 13.4 RATIO (10-20); Calcium,Total 8.2 mg/dL (8.5-10.1); Chloride 105 mmol/L (98-107); Creatinine, Serum 0.67 mg/dL (0.55-1.02); EST Glomerular Filtration Rate 109 mL/min (>60); Est Glom Filt Rate - Afr Amer 131 mL/min (>60); Estimated Creatinine Clearance 113.89 ml/min; Glucose 157 mg/dL (74-106); Sodium Level 132 mmol/L (136-145)
--- NOTE | 2023-05-05 07:45 | PN.HOSP_ITS ---
Reason for Visit Reason for Visit: Diagnoses Gas gangrene (05/04/23) Type 2 diabetes mellitus with diabetic polyneuropathy (05/04/23) Type 2 diabetes mellitus with other skin complications (05/04/23) Local infection of the skin and subcutaneous tissue, unspecified (05/04/23) Non-pressure chronic ulcer of other part of right foot with fat layer exposed (05/04/23) Subjective Subjective No events overnight. Objective Data Objective Data Vital Signs: Vital Signs Temp Pulse Resp BP Pulse Ox O2 Del Method O2 Flow Rate 37.9 C H 102 H 16 132/92 H 100 Room Air 96 05/05/23 03:00 05/05/23 03:00 05/05/23 03:00 05/05/23 03:00 05/05/23 03:00 05/05/23 03:30 05/04/23 15:23 Oxygen Flow Rate (L/min) 96 Oxygen Delivery Method Room Air Weight: 94.2 kg Body Mass Index (BMI) 33.5 Intake & Output: Intake and Output for Last 24 Hours 05/03/23 05/04/23 05/05/23 23:59 23:59 23:59 Intake Total 1182 / 1182 1450.25 / 1450.25 Balance 1182 / 1182 1450.25 / 1450.25 Lab / Micro Data 05/05/23 06:20 05/05/23 06:20 Labs: Laboratory Results - last 24 hr 05/04/23 11:40: WBC 11.1 H, RBC 3.68 L, Hgb 10.5 L, Hct 32.8 L, MCV 89.1, MCH 28.5, MCHC 32.0, RDW Std Deviation 52.3 H, RDW Coeff of John 15.9 H, Plt Count 333, MPV 9.2, Immature Gran % (Auto) 1.300 H, Neut % (Auto) 73.2 H, Lymph % (Auto) 14.9 L, [place] % (Auto) 10.2 H, Eos % (Auto) 0.0, Baso % (Auto) 0.4, Absolute Neuts (auto) 8.1 H, Absolute Lymphs (auto) 1.65, Nucleated RBC % 0, ESR 88 H, Sodium 133 L, Potassium 3.8, Chloride 102, Carbon Dioxide 27.0, Anion Gap 4 L, BUN 9, Creatinine 0.72, Estim Creat Clear Calc 105.98, Est GFR (MDRD) Af Amer 121, Est GFR (MDRD) Non-Af 100, BUN/Creatinine Ratio 12.5, Glucose 207 H, Hemoglobin A1c 7.2 H, Lactic Acid 1.9, Calcium 8.7, C-React Prot Ext Range 117.00 H 05/04/23 16:14: POC Glucose 140 H 05/04/23 16:35: Urine Test Negative 05/04/23 20:05: POC Glucose 127 H 05/04/23 23:11: POC Glucose 183 H 05/05/23 06:15: POC Glucose 148 H 05/05/23 06:20: WBC 8.8, RBC 3.39 L, Hgb 9.6 L, Hct 31.0 L, MCV 91.4, MCH 28.3, MCHC 31.0 L, RDW Std Deviation 53.1 H, RDW Coeff of John 15.9 H, Plt Count 305, MPV 9.4, Immature Gran % (Auto) 0.600, Neut % (Auto) 56.9, Lymph % (Auto) 30.9, [place] % (Auto) 11.1 H, Eos % (Auto) 0.0, Baso % (Auto) 0.5, Absolute Neuts (auto) 5.0, Absolute Lymphs (auto) 2.73, Nucleated RBC % 0, Sodium 132 L, Potassium 4.0, Chloride 105, Carbon Dioxide 21.0, Anion Gap 6, BUN 9, Creatinine 0.67, Estim Creat Clear Calc 113.89, Est GFR (MDRD) Af Amer 131, Est GFR (MDRD) Non-Af 109, BUN/Creatinine Ratio 13.4, Glucose 157 H, Calcium 8.2 L Radiography Diagnostic Testing: Radiology Impression Foot X-Ray 05/04/23 11:34 IMPRESSION: 1. Small amounts of soft tissue air is present between the fourth and fifth proximal phalanges and in the amputation bed of the fifth digit with diffuse swelling and increased density of the soft tissues in this region. Soft tissue ulcer/open wound is suspected in these regions. Gas gangrene can also present in this manner. There is no demonstrated evidence of osteomyelitis. Electronically Signed: Sam Hendrickson MD at 11:59 EDT , Physical Exam Const alert and no apparent distress HEENT head/scalp atraumatic and moist oral mucous membranes Resp normal respiratory effort, no retractions, no use of accessory muscles and clear to auscultation bilaterally Cardio regular rate, regular rhythm, S1 normal heart sound and S2 normal heart sound GI normal to inspection, nondistended, normoactive bowel sounds Assessment & Plan Assessment/Plan (1) Diabetic foot infection: PLAN: With gas gangrene, abscess, ful thickness ulceration with fat exposed. Pt underwent incision and drainage right foot on 05/04. Antibiotics with vancomycin and also add piperacillin/tazobactam Follow-up cultures Nonweightbearing on right lower extremity until okayed by podiatry. MRI showed ulcer at the plantar aspect of the forefoot with suspected adjacent abscess Further mgmt per podiatry. PLAN: Plan Chronic conditions * Diabetes mellitus type 2: Continue with glargine. Hold metformin for the time being. Add sliding scale insulin. * Diabetic neuropathy VTE prophylaxis with enoxaparin. Charges/Coding Visit Charges Inpatient E&M: 58165 Subs Hosp L2
[2023-05-05 08:23] VITALS: BP 121/81; PULSE 106; RESP 18; TEMP 36.9; O2SAT 98
--- NOTE | 2023-05-05 08:29 | PCM.PN.SRG ---
Subjective Subjective Ms. Givens is a 33-year-old diabetic female status post emergent incision and drainage secondary to gas gangrene to the right foot. Date of surgery was 05/04/2023. Patient has kept her postoperative dressing clean dry and intact. There was some evidence of strikethrough appreciated to the plantar incision. Patient is denying any pain at the time of interview today. Her blood sugar has been controlled while in the hospital. Will perform dressing change today at bedside. Plan for MRI to rule out osteomyelitis to the right foot to be performed today. She denies trauma. Denies constitutional symptoms. No other pedal complaints at this time. Objective Data Objective Data Vital Signs: Vital Signs Temp Pulse Resp BP Pulse Ox O2 Del Method O2 Flow Rate 98.5 F 106 H 18 121/81 H 98 Room Air 96 05/05/23 08:23 05/05/23 08:23 05/05/23 08:23 05/05/23 08:23 05/05/23 08:23 05/05/23 08:24 05/04/23 15:23 Oxygen Flow Rate (L/min) 96 Oxygen Delivery Method Room Air Weight: 94.2 kg Body Mass Index (BMI) 33.5 Intake & Output: Intake and Output for Last 24 Hours 05/03/23 05/04/23 05/05/23 23:59 23:59 23:59 Intake Total 1182 / 1182 1450.25 / 1450.25 Balance 1182 / 1182 1450.25 / 1450.25 Lab / Micro Data Attestation: I reviewed the patient's lab results. 05/05/23 06:20 05/05/23 06:20 Labs: Laboratory Results - last 24 hr 05/04/23 11:40: WBC 11.1 H, RBC 3.68 L, Hgb 10.5 L, Hct 32.8 L, MCV 89.1, MCH 28.5, MCHC 32.0, RDW Std Deviation 52.3 H, RDW Coeff of John 15.9 H, Plt Count 333, MPV 9.2, Immature Gran % (Auto) 1.300 H, Neut % (Auto) 73.2 H, Lymph % (Auto) 14.9 L, [place] % (Auto) 10.2 H, Eos % (Auto) 0.0, Baso % (Auto) 0.4, Absolute Neuts (auto) 8.1 H, Absolute Lymphs (auto) 1.65, Nucleated RBC % 0, ESR 88 H, Sodium 133 L, Potassium 3.8, Chloride 102, Carbon Dioxide 27.0, Anion Gap 4 L, BUN 9, Creatinine 0.72, Estim Creat Clear Calc 105.98, Est GFR (MDRD) Af Amer 121, Est GFR (MDRD) Non-Af 100, BUN/Creatinine Ratio 12.5, Glucose 207 H, Hemoglobin A1c 7.2 H, Lactic Acid 1.9, Calcium 8.7, C-React Prot Ext Range 117.00 H 05/04/23 16:14: POC Glucose 140 H 05/04/23 16:35: Urine Test Negative 05/04/23 20:05: POC Glucose 127 H 05/04/23 23:11: POC Glucose 183 H 05/05/23 06:15: POC Glucose 148 H 05/05/23 06:20: WBC 8.8, RBC 3.39 L, Hgb 9.6 L, Hct 31.0 L, MCV 91.4, MCH 28.3, MCHC 31.0 L, RDW Std Deviation 53.1 H, RDW Coeff of John 15.9 H, Plt Count 305, MPV 9.4, Immature Gran % (Auto) 0.600, Neut % (Auto) 56.9, Lymph % (Auto) 30.9, [place] % (Auto) 11.1 H, Eos % (Auto) 0.0, Baso % (Auto) 0.5, Absolute Neuts (auto) 5.0, Absolute Lymphs (auto) 2.73, Nucleated RBC % 0, Sodium 132 L, Potassium 4.0, Chloride 105, Carbon Dioxide 21.0, Anion Gap 6, BUN 9, Creatinine 0.67, Estim Creat Clear Calc 113.89, Est GFR (MDRD) Af Amer 131, Est GFR (MDRD) Non-Af 109, BUN/Creatinine Ratio 13.4, Glucose 157 H, Calcium 8.2 L Radiography Diagnostic Testing: Radiology Impression Foot X-Ray 05/04/23 11:34 IMPRESSION: 1. Small amounts of soft tissue air is present between the fourth and fifth proximal phalanges and in the amputation bed of the fifth digit with diffuse swelling and increased density of the soft tissues in this region. Soft tissue ulcer/open wound is suspected in these regions. Gas gangrene can also present in this manner. There is no demonstrated evidence of osteomyelitis. Electronically Signed: Sam Hendrickson MD at 11:59 EDT , Physical Exam Narrative Neurovascular is unchanged. Nonpitting edema appreciated the plantar aspect of the right foot. 2 incisions are appreciated dorsal and plantarly with 100% granular tissue. No evidence of drainage at this time. No malodor. Evidence of probe to bone secondary to surgical incisions. No pain on palpation to both incisions. No pain with calf compression. Const oriented x3 and no apparent distress Assessment & Plan Assessment/Plan (1) Gas gangrene: PLAN: Patient was examined evaluated. All findings were discussed with the patient. All questions were answered to the patient satisfaction. The patient's right lower extremity dressing was changed today packing was removed. The patient's incisions are healthy with no evidence of purulence or drainage at the time of dressing change. The packing will not be replaced secondary to MRI today of the right foot. Both incision were dressed with Betadine soaked gauze, dry sterile dressing and a double layer Eldridge compression bandage was applied. Patient is to continue nonweightbearing to right lower extremity. She can be full weightbearing to the left lower extremity. Based on the MRI results we will plan for definitive procedure either incision of bone cortex of the fourth ray, delayed primary closure and advancement flap versus washout and delayed primary closure with advancement flap of the right foot. WBC: 11.1 -> 8.8 ESR: 88 CRP: 117 HbA1c: 7.2 Medicine: On board, medical management, IV antibiotics vancomycin and Zosyn Podiatry will continue to follow with the patient his house. Please reach out to Dr. Forrest with any questions or concerns. (2) Non-pressure chronic ulcer of other part of right foot with fat layer exposed: (3) Type 2 diabetes mellitus with peripheral neuropathy:
[2023-05-05] MEDS: Insulin Glargine-YFGN 100 UNIT/ML Pen 15 UNIT SC ×2 (08:30→22:30)
--- NOTE | 2023-05-05 08:53 | WOUNDNOTE ---
Dr Forrest in to change dressing this am to the R foot.
[2023-05-05] MEDS: Insulin Lispro 100 UNIT/ML INSULN.PEN SC ×2 (11:32→16:18)
[2023-05-05 12:01] LABS: Bedside Glucose 183 mg/dL (74-106)
[2023-05-05] MEDS: oxyCODONE 5 MG Tablet PO ×2 (13:22→22:29)
[2023-05-05] MEDS: Acetaminophen 325 MG Tablet 650 MG PO ×2 (13:23→22:30)
[2023-05-05 13:58] LABS: Vancomycin, Trough Level 15.1 ug/mL (5.0-15.0)
[2023-05-05 14:00] VITALS: BP 128/83; PULSE 101; RESP 18; TEMP 36.8; O2SAT 100
--- NOTE | 2023-05-05 14:04 | PCM.RX.CS ---
Consult Antibiotic Management Pharmacy has been consulted to manage selected antiobiotic: Vancomycin Type of Intervention Type of Consult: Follow-up Suspected Infection Suspected Infection: Skin/Soft tissue Prior Doses of Antibiotics Prior Doses of Antibiotics Received/Current Regimen: Vancomycin 1000 mg given 05/04 @ 2032, and 05/05 @ 8413 Labs Labs: Sodium 132 mmol/L (136-145) L 05/05/23 06:20 Potassium 4.0 mmol/L (3.5-5.1) 05/05/23 06:20 Chloride 105 mmol/L (98-107) 05/05/23 06:20 Carbon Dioxide 21.0 mmol/L (21.0-32.0) 05/05/23 06:20 Anion Gap 6 (5-15) 05/05/23 06:20 BUN 9 mg/dL (7-18) 05/05/23 06:20 Creatinine 0.67 mg/dL (0.55-1.02) 05/05/23 06:20 Est GFR (MDRD) Af Amer 131 mL/min (>60) 05/05/23 06:20 Est GFR (MDRD) Non-Af 109 mL/min (>60) 05/05/23 06:20 BUN/Creatinine Ratio 13.4 RATIO (10-20) 05/05/23 06:20 Glucose 157 mg/dL (74-106) H 05/05/23 06:20 Vancomycin Trough 15.1 ug/mL (5.0-15.0) H 05/05/23 12:50 Microbiology Microbiology: Microbiology 05/04/23 17:40 Tissue - Right Foot Wound Culture - Preliminary Streptococcus group C 05/04/23 12:10 Wound - Right Foot Wound Culture - Preliminary Streptococcus group C Dosing Weight Weight used for dosin.2 kg Estimated Creatinine Clearance Estimated Creatinine Clearance: 114 Goal Trough Goal Trough: 15-20 mcg/mL Pharmacy Plan for Drug Dosing Pharmacy Plan for Drug Dosing: Vancomycin trough came back at 15.1. Continue vancomycin 1000 mg Q8H with a trough in 2 days. Pharmacy Service will continue to monitor and adjust dosing as required. Follow-Up Labs Follow-Up Labs: Trough: Vancomycin Date/Time Labs Ordered Labs to be done on [date and time ordered]: 05/07/23 @ 1230
--- NOTE | 2023-05-05 16:32 | CASEMGMT ---
Addendum entered by Corrie Campos 05/05/23 16:48: Living Will/HCPOA: Pt. states she does not have either a LW or HCPOA and declines to receive information about ADs. Pt. informed she can schedule an appt. with [facility] to establish these if desired. Original Note: RYNE LUJAN Assessment: Face to Face with pt for initial transition planning/care coordination assessment. RYNE LUJAN introduced self and role at [facility], pt voices understanding and consents to assessment. Pt is A&O x4 and answers all questions appropriately at this time. Care providers, pharmacy, and demographics verified/updated. Admitting Dx: Diabetic Foot Infection PCP: States she does not have one. RYNE LUJAN will follow up tomorrow with providing list of PCPs to pt. 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 unsure of who it is) Preferred Pharmacy: [facility] ([place]) Insurance: [employer] Prescription Benefit: yes LNOK: Rhona Givens (Grandmother) Living Arrangements: Pt lives with her boyfriend and a few friends in a 2 story home, not [facility]. 3 steps w/railing to enter and 12 steps w/railing to second floor. States prior t this admisison, she had been sick and felt weak so she had to take the stairs slowly. States she is I in all ADLs and IADLs. Transportation: Pt states she can drive but does not have a car. States her boyfriend drives. DME: None. Denies need for DME at this time. HHC/SNF: [facility] in 2021. Denies previous HHC. Pt states no concerns with going home at time of dc. Pt states no further concerns/needs. CM to follow. Advised pt to ask CM if any further question/concerns/needs arise, voices understanding. Pt Goal: Home with support of boyfriend who was a former EMT. Pt. states last time she had this procedure, she took care of her own surgical wounds and plans to do the same this time. Plan: Home with no needs. Will follow cultures.
[2023-05-05 16:38] LABS: Bedside Glucose 160 mg/dL (74-106)
[2023-05-05 20:40] VITALS: BP 126/79; PULSE 99; RESP 16; TEMP 36.8; O2SAT 98
[2023-05-05] MEDS: traZODone 100 MG Tablet 300 MG PO (22:29)
[2023-05-06 00:18] LABS: Bedside Glucose 205 mg/dL (74-106)
[2023-05-06 02:46] VITALS: BP 95/64; PULSE 72; RESP 16; TEMP 36.6; O2SAT 98
[2023-05-06] MEDS: 0.9% Saline Lock 10 ML Syringe IV (05:31)
[2023-05-06] MEDS: Vancomycin IV 1,000 MG/200 ML BAG 200 MG IV ×2 (05:31→12:46)
[2023-05-06] MEDS: Piperacil/Tazobactam 3.375 GM in 0.9% Normal Saline (50mL MB+) 50 ML IV ×3 (06:59→21:46)
[2023-05-06] MEDS: oxyCODONE 5 MG Tablet PO ×2 (07:00→13:03)
[2023-05-06] MEDS: Acetaminophen 325 MG Tablet 650 MG PO (07:00)
[2023-05-06] MEDS: Insulin Lispro 100 UNIT/ML INSULN.PEN SC ×3 (07:01→16:14)
[2023-05-06 07:02] LABS: Absolute Lymphocyte Count 2.89 X10^3/uL (0.83-4.51); Absolute Neutrophil Count 2.4 X10^3/uL (2.0-7.7); Basophil# 0.03 X10^3/uL; Basophil% 0.5 % (0-1); Eosinophil# 0.02 X10^3/uL; Eosinophils% 0.3 % (0-5); Hematocrit 32.8 % (37-47); Hemoglobin 10.1 g/dL (12.0-15.0); Lymphocyte # 2.89 X10^3/ul (0.83-4.51); Lymphocyte % 49.6 % (19-41); Mean Corp Hgb Conc 30.8 g/dL (32-36); Mean Corpuscular Hgb 28.5 pg (27.0-32.0); Mean Corpuscular Volume 92.7 fL (81-99); Mean Platelet Vol. 9.4 fl (6.2-12.0); Monocyte# 0.49 X10^3/uL; Monocyte% 8.4 % (0-10); NRBC Flagged by Analyzer 0 % (0-5); Neutrophil # 2.36 X10^3/uL (2.7-7.7); Neutrophil % 40.5 % (47-70); Platelet Count 317 K/mm3 (150-450); RBC Distribution Width CV 15.9 % (11.6-14.6); RBC Distribution Width SD 54.6 fl (35.1-43.9); Red Blood Count 3.54 M/mm3 (4.2-5.4); White Blood Count 5.8 K/mm3 (4.4-11.0)
[2023-05-06 07:30] LABS: Anion Gap 7 (5-15); BUN 13 mg/dL (7-18); BUN/Creat Ratio 18.9 RATIO (10-20); Calcium,Total 8.7 mg/dL (8.5-10.1); Chloride 108 mmol/L (98-107); Creatinine, Serum 0.69 mg/dL (0.55-1.02); EST Glomerular Filtration Rate 106 mL/min (>60); Est Glom Filt Rate - Afr Amer 128 mL/min (>60); Estimated Creatinine Clearance 110.59 ml/min; Glucose 207 mg/dL (74-106); Sodium Level 139 mmol/L (136-145)
--- NOTE | 2023-05-06 08:02 | PN.SURG_ITS ---
Subjective Subjective Ms. Givens is a 33-year-old diabetic female seen at bedside today for dressing changes to the right lower extremity. Patient is status post incision and drainage to the right foot with concerns of gas gangrene. Patient denies any pain to the right lower extremity. MRI was taken with concerns of abscess to the third interspace of the right foot. Area of concern was explored today with bedside I&D. There was evidence of 5 cc of scant purulent sanguinous drainage appreciated. The area was flushed with 20 cc of sterile normal saline. Area was packed with sterile gauze. A single layer Eldridge compression bandage was donned. We will plan for a excisional debridement of both incision and washout with a CRISTY to the right lower extremity this Wednesday. She denies constitutional symptoms. No other pedal complaints at this time. Objective Data Objective Data Vital Signs: Vital Signs Temp Pulse Resp BP Pulse Ox O2 Del Method O2 Flow Rate 98 F 72 16 95/64 98 Room Air 96 05/06/23 02:46 05/06/23 02:46 05/06/23 02:46 05/06/23 02:46 05/06/23 02:46 05/06/23 02:46 05/04/23 15:23 Oxygen Flow Rate (L/min) 96 Oxygen Delivery Method Room Air Weight: 94.2 kg Body Mass Index (BMI) 33.5 Intake & Output: Intake and Output for Last 24 Hours 05/04/23 05/05/23 05/06/23 23:59 23:59 23:59 Intake Total 1182 / 1182 1150 / 1150 Balance 1182 / 1182 1150 / 1150 Lab / Micro Data Attestation: I reviewed the patient's lab results. 05/06/23 06:05 05/06/23 06:05 Labs: Laboratory Results - last 24 hr 05/05/23 11:27: POC Glucose 183 H 05/05/23 12:50: Vancomycin Trough 15.1 H 05/05/23 16:17: POC Glucose 160 H 05/05/23 22:28: POC Glucose 205 H 05/06/23 06:05: WBC 5.8, RBC 3.54 L, Hgb 10.1 L, Hct 32.8 L, MCV 92.7, MCH 28.5, MCHC 30.8 L, RDW Std Deviation 54.6 H, RDW Coeff of John 15.9 H, Plt Count 317, MPV 9.4, Immature Gran % (Auto) 0.700, Neut % (Auto) 40.5 L, Lymph % (Auto) 49.6 H, [place] % (Auto) 8.4, Eos % (Auto) 0.3, Baso % (Auto) 0.5, Absolute Neuts (auto) 2.4, Absolute Lymphs (auto) 2.89, Nucleated RBC % 0, Sodium 139, Potassium 4.0, Chloride 108 H, Carbon Dioxide 24.0, Anion Gap 7, BUN 13, Creatinine 0.69, Estim Creat Clear Calc 110.59, Est GFR (MDRD) Af Amer 128, Est GFR (MDRD) Non-Af 106, BUN/Creatinine Ratio 18.9, Glucose 207 H, Calcium 8.7 Micro: Microbiology 05/04/23 12:00 Blood Culture (Wb) - Anticubital Left Blood Culture - Preliminary No growth in 48 hours. 05/04/23 11:40 Blood Culture (Wb) - Anticubital Left Blood Culture - Preliminary No growth in 48 hours. 05/04/23 17:40 Wound - Right Foot Gram Stain - Final 05/04/23 17:40 Tissue - Right Foot Gram Stain - Final 05/04/23 17:40 Tissue - Right Foot Wound Culture - Preliminary Streptococcus group C 05/04/23 17:40 Wound - Right Foot Gram Stain - Final 05/04/23 12:10 Wound - Right Foot Gram Stain - Final 05/04/23 12:10 Wound - Right Foot Wound Culture - Preliminary Streptococcus group C Radiography Diagnostic Testing: Radiology Impression Lower Extremity MRI 05/04/23 17:00 IMPRESSION: Amputation of the fifth digit through the midshaft of the fifth metatarsal. Ulcer at the plantar aspect of the forefoot with suspected adjacent abscess in the plantar subcutaneous fat extending into the third intermetatarsal space, with tiny air bubbles. No osteomyelitis. Atrophy, fatty infiltration, and edema of the intrinsic muscles of the foot. Moderate subcutaneous soft tissue edema along the dorsum of the foot. Electronically Signed: Naga Lr MD at 11:07 EDT , Physical Exam Narrative Neurovascular status unchanged. Nonpitting edema appreciated to the right foot. No active drainage. Erythema has improved. Wound base is granular nature with no active drainage. No pain with calf compression. Bedside I&D was performed to the right foot. The right foot was prepped and draped in normal aseptic manner. Using a sterile hemostat, dilation of the deep plantar follow-up was continued into the third interspace of the right foot. There was noted to be 5 cc of scant purulent sanguinous drainage which was appreciated. The plantar incision was flushed with 20 cc of normal saline. The right foot was white clean and patted dry. The area was packed with sterile gauze to allow for additional drainage. The right foot was dressed with dry sterile dressing and a single layer Eldridge compression bandage. Const alert, oriented x3 and no apparent distress Assessment & Plan Assessment/Plan (1) Gas gangrene: PLAN: Patient was examined and evaluated. All findings were discussed with the patient. All questions were answered to the patient's satisfaction. Bedside I&D was performed to the right foot. The right foot was prepped and draped in normal aseptic manner. Using a sterile hemostat, dilation of the deep plantar follow-up was continued into the third interspace of the right foot. There was noted to be 5 cc of scant purulent sanguinous drainage which was appreciated. The plantar incision was flushed with 20 cc of normal saline. The right foot was white clean and patted dry. The area was packed with sterile gauze to allow for additional drainage. The right foot was dressed with dry sterile dressing and a single layer Eldridge compression bandage. Surgical cultures: Streptococcus group C WBC: 11.1 -> 8.8 -> 5.8 Glu: 207 Medicine: On board, medical management, IV antibiotics Podiatry will continue to follow while the patient is in house. We will plan for definitive procedure on Wednesday, excisional debridement with washout, delayed primary closure with CRISTY all of the right lower extremity. Reach out to Dr. Forrest with any questions or concerns. (2) Non-pressure chronic ulcer of other part of right foot with fat layer exposed: (3) Type 2 diabetes mellitus with peripheral neuropathy: PLAN: Alejandrina strict glycemic control while the patient is in house to optimize h ealing.
--- NOTE | 2023-05-06 08:18 | WOUNDNOTE ---
wound photo: right foot
--- NOTE | 2023-05-06 08:19 | WOUNDNOTE ---
wound photo: right foot
[2023-05-06] MEDS: 0.9% Normal Saline (250mL Bag) 250 ML 15 ML IV (08:37)
[2023-05-06 08:40] VITALS: BP 108/79; PULSE 74; RESP 16; TEMP 36.8; O2SAT 94
--- NOTE | 2023-05-06 08:44 | PCM.PN.HOSP ---
Reason for Visit Reason for Visit: Diagnoses Gas gangrene (05/04/23) Type 2 diabetes mellitus with diabetic polyneuropathy (05/04/23) Type 2 diabetes mellitus with other skin complications (05/04/23) Local infection of the skin and subcutaneous tissue, unspecified (05/04/23) Non-pressure chronic ulcer of other part of right foot with fat layer exposed (05/04/23) Subjective Subjective No new events. Objective Data Objective Data Vital Signs: Vital Signs Temp Pulse Resp BP Pulse Ox O2 Del Method O2 Flow Rate 36.8 C 74 16 108/79 94 Room Air 96 05/06/23 08:40 05/06/23 08:40 05/06/23 08:40 05/06/23 08:40 05/06/23 08:40 05/06/23 08:40 05/04/23 15:23 Oxygen Flow Rate (L/min) 96 Oxygen Delivery Method Room Air Weight: 94.2 kg Body Mass Index (BMI) 33.5 Intake & Output: Intake and Output for Last 24 Hours 05/04/23 05/05/23 05/06/23 23:59 23:59 23:59 Intake Total 1182 / 1182 1361.75 / 1361.75 Balance 1182 / 1182 1361.75 / 1361.75 Lab / Micro Data 05/06/23 06:05 05/06/23 06:05 Labs: Laboratory Results - last 24 hr 05/05/23 11:27: POC Glucose 183 H 05/05/23 12:50: Vancomycin Trough 15.1 H 05/05/23 16:17: POC Glucose 160 H 05/05/23 22:28: POC Glucose 205 H 05/06/23 06:05: WBC 5.8, RBC 3.54 L, Hgb 10.1 L, Hct 32.8 L, MCV 92.7, MCH 28.5, MCHC 30.8 L, RDW Std Deviation 54.6 H, RDW Coeff of John 15.9 H, Plt Count 317, MPV 9.4, Immature Gran % (Auto) 0.700, Neut % (Auto) 40.5 L, Lymph % (Auto) 49.6 H, [place] % (Auto) 8.4, Eos % (Auto) 0.3, Baso % (Auto) 0.5, Absolute Neuts (auto) 2.4, Absolute Lymphs (auto) 2.89, Nucleated RBC % 0, Sodium 139, Potassium 4.0, Chloride 108 H, Carbon Dioxide 24.0, Anion Gap 7, BUN 13, Creatinine 0.69, Estim Creat Clear Calc 110.59, Est GFR (MDRD) Af Amer 128, Est GFR (MDRD) Non-Af 106, BUN/Creatinine Ratio 18.9, Glucose 207 H, Calcium 8.7 Micro: Microbiology 05/04/23 12:00 Blood Culture (Wb) - Anticubital Left Blood Culture - Preliminary No growth in 48 hours. 05/04/23 11:40 Blood Culture (Wb) - Anticubital Left Blood Culture - Preliminary No growth in 48 hours. 05/04/23 17:40 Wound - Right Foot Gram Stain - Final 05/04/23 17:40 Tissue - Right Foot Gram Stain - Final 05/04/23 17:40 Tissue - Right Foot Wound Culture - Preliminary Streptococcus group C 05/04/23 17:40 Wound - Right Foot Gram Stain - Final 05/04/23 12:10 Wound - Right Foot Gram Stain - Final 05/04/23 12:10 Wound - Right Foot Wound Culture - Preliminary Streptococcus group C Radiography Diagnostic Testing: Radiology Impression Lower Extremity MRI 05/04/23 17:00 IMPRESSION: Amputation of the fifth digit through the midshaft of the fifth metatarsal. Ulcer at the plantar aspect of the forefoot with suspected adjacent abscess in the plantar subcutaneous fat extending into the third intermetatarsal space, with tiny air bubbles. No osteomyelitis. Atrophy, fatty infiltration, and edema of the intrinsic muscles of the foot. Moderate subcutaneous soft tissue edema along the dorsum of the foot. Electronically Signed: Naga Lr MD at 11:07 EDT , Physical Exam Const alert and no apparent distress HEENT head/scalp atraumatic and moist oral mucous membranes Neuro Sensorium / Orientation: awake and alert Psych affect normal Assessment & Plan Assessment/Plan (1) Diabetic foot infection: PLAN: With gas gangrene, abscess, full thickness ulceration with fat exposed. Pt underwent incision and drainage right foot on 05/04. Antibiotics with vancomycin and also add piperacillin/tazobactam. Follow-up cultures. Thus far showing Group C Strep, will vancomycin for now. Nonweightbearing on right lower extremity until okayed by podiatry. MRI showed ulcer at the plantar aspect of the forefoot with suspected adjacent abscess Further mgmt per podiatry. Pt had bedside I+D that showed scant purulent drainage. Definite procedure planned for 05/07 with excisional debridement w washout, delay primary closure. PLAN: Plan Chronic conditions Diabetes mellitus type 2: fair control. Continue with glargine. Hold metformin for the time being. Add sliding scale insulin. Diabetic neuropathy VTE prophylaxis with enoxaparin. Charges/Coding Visit Charges Inpatient E&M: [address] [facility] Hosp L1
--- NOTE | 2023-05-06 09:30 | CASEMGMT ---
RN CM in to pt. room and provided pt. with list of PCPs for her to call to see if they are accepting patients. Pt. denies having any additional questions or concerns at this time.
[2023-05-06] MEDS: Insulin Glargine-YFGN 100 UNIT/ML Pen 15 UNIT SC ×2 (10:50→21:46)
[2023-05-06 11:03] LABS: Bedside Glucose 208 mg/dL (74-106)
[2023-05-06 11:09] LABS: Bedside Glucose 197 mg/dL (74-106)
--- NOTE | 2023-05-06 14:41 | CASEMGMT ---
RYNE CM in to pt. room to verify if she has a glucometer/supplies. Pt. states she is a diabetic and does have a glucometer and all of the supplies she needs to check her blood glucose and administer her insulin except for lancets. Pt. states because she does not have a PCP, she has been reusing the pen needle to prick her finger in order to check her BG. I informed pt. that we will get a script for her for lancets. Pt. also states she is interested in an insulin pump. I encouraged pt. to establish with a PCP from the list we provided to her today and then to ave this conversation with her PCP for further information on an insulin pump. Pt. voices understanding and denies having further questions/concerns.
[2023-05-06 14:50] VITALS: BP 126/88; PULSE 83; RESP 18; TEMP 36.7; O2SAT 69
[2023-05-06 16:33] LABS: Bedside Glucose 203 mg/dL (74-106)
[2023-05-06] MEDS: Ondansetron 4 MG/2 ML Vial IV (17:28)
[2023-05-06 21:36] VITALS: BP 108/74; PULSE 84; RESP 16; TEMP 36.3; O2SAT 97
[2023-05-06] MEDS: traZODone 100 MG Tablet 300 MG PO (21:47)
[2023-05-06 23:57] LABS: Bedside Glucose 179 mg/dL (74-106)
[2023-05-07] VITALS (10 sets, daily range): BP systolic 97–136; BP diastolic 67–95; PULSE 78–85; RESP 16–20; TEMP 36.3–36.8; O2SAT 97–100; BMI 33.5
[2023-05-07] MEDS: Piperacil/Tazobactam 3.375 GM in 0.9% Normal Saline (50mL MB+) 50 ML IV ×3 (05:52→22:36)
[2023-05-07] MEDS: Insulin Lispro 100 UNIT/ML INSULN.PEN SC (06:05)
[2023-05-07] MEDS: Morphine 2 MG/ML Syringe 1 MG IV ×2 (06:34→17:18)
[2023-05-07 07:01] LABS: Anion Gap 4 (5-15); BUN 10 mg/dL (7-18); BUN/Creat Ratio 17.1 RATIO (10-20); Calcium,Total 8.4 mg/dL (8.5-10.1); Chloride 108 mmol/L (98-107); Creatinine, Serum 0.58 mg/dL (0.55-1.02); EST Glomerular Filtration Rate 127 mL/min (>60); Est Glom Filt Rate - Afr Amer 154 mL/min (>60); Estimated Creatinine Clearance 131.56 ml/min; Glucose 161 mg/dL (74-106); Sodium Level 138 mmol/L (136-145)
[2023-05-07 07:41] LABS: Bedside Glucose 160 mg/dL (74-106)
--- NOTE | 2023-05-07 08:39 | WOUNDNOTE ---
Pt going down for surgery this am. will leave dressing in place.
[2023-05-07 11:33] LABS: Bedside Glucose 125 mg/dL (74-106)
--- NOTE | 2023-05-07 12:29 | PN.HOSP_ITS ---
Reason for Visit Reason for Visit: Diagnoses Gas gangrene (05/04/23) Type 2 diabetes mellitus with diabetic polyneuropathy (05/04/23) Type 2 diabetes mellitus with other skin complications (05/04/23) Local infection of the skin and subcutaneous tissue, unspecified (05/04/23) Non-pressure chronic ulcer of other part of right foot with fat layer exposed (05/04/23) Subjective Subjective Still with nausea that has been going on for months. Objective Data Objective Data Vital Signs: Vital Signs Temp Pulse Resp BP Pulse Ox O2 Del Method O2 Flow Rate 36.3 C L 85 18 110/80 100 Room Air 96 05/07/23 11:35 05/07/23 11:35 05/07/23 11:35 05/07/23 11:35 05/07/23 11:35 05/07/23 11:35 05/04/23 15:23 Oxygen Flow Rate (L/min) 96 Oxygen Delivery Method Room Air Weight: 94.2 kg Body Mass Index (BMI) 33.5 Intake & Output: Intake and Output for Last 24 Hours 05/05/23 05/06/23 05/07/23 23:59 23:59 23:59 Intake Total 2659.00 / 2859.00 250 / 250 Output Total 1300 / 1300 Balance 1359.00 / 1559.00 250 / 250 Lab / Micro Data 05/06/23 06:05 05/07/23 06:00 Labs: Laboratory Results - last 24 hr 05/06/23 16:13: POC Glucose 203 H 05/06/23 21:45: POC Glucose 179 H 05/07/23 06:00: Sodium 138, Potassium 4.0, Chloride 108 H, Carbon Dioxide 26.0, Anion Gap 4 L, BUN 10, Creatinine 0.58, Estim Creat Clear Calc 131.56, Est GFR (MDRD) Af Amer 154, Est GFR (MDRD) Non-Af 127, BUN/Creatinine Ratio 17.1, Glucose 161 H, Calcium 8.4 L 05/07/23 06:03: POC Glucose 160 H 05/07/23 11:16: POC Glucose 125 H Micro: Microbiology 05/04/23 17:40 Wound - Right Foot Gram Stain - Final 05/04/23 17:40 Wound - Right Foot Wound Culture - Preliminary Beta streptococcus Gram positive organism 05/04/23 17:40 Tissue - Right Foot Gram Stain - Final 05/04/23 17:40 Tissue - Right Foot Wound Culture - Preliminary Streptococcus group C Gram positive organism Gram positive organism#2 05/04/23 12:10 Wound - Right Foot Gram Stain - Final 05/04/23 12:10 Wound - Right Foot Wound Culture - Preliminary Beta streptococcus Coag Negative Staph Gram positive organism 05/04/23 17:40 Wound - Right Foot Gram Stain - Final 05/04/23 17:40 Wound - Right Foot Wound Culture - Preliminary Streptococcus dysgalactiae equ Staphylococcus species 05/04/23 17:40 Wound - Right Foot Anaerobic Culture - Preliminary 05/04/23 12:00 Blood Culture (Wb) - Anticubital Left Blood Culture - Preliminary No growth in 48 hours. 05/04/23 11:40 Blood Culture (Wb) - Anticubital Left Blood Culture - Preliminary No growth in 48 hours. Physical Exam Const alert and no apparent distress HEENT head/scalp atraumatic and moist oral mucous membranes Psych affect normal Assessment & Plan Assessment/Plan (1) Diabetic foot infection: PLAN: With gas gangrene, abscess, full thickness ulceration with fat exposed. Pt underwent incision and drainage right foot on 05/04. Antibiotics with vancomycin and also add piperacillin/tazobactam. Follow-up cultures. Thus far showing Group C Strep, will vancomycin for now. Nonweightbearing on right lower extremity until okayed by podiatry. MRI showed ulcer at the plantar aspect of the forefoot with suspected adjacent abscess Further mgmt per podiatry. Pt had bedside I+D that showed scant purulent drainage. Definite procedure planned for 05/07 with excisional debridement w washout, delay primary closure. Cx showing Strep dysgalactiae and staph sp. Follow up cultures. (2) Nausea and vomiting: PLAN: Chronic Has had a GES that was reportedly negative. I told he and her significant other that it is unclear what it could be. It could be gastroparesis v other. It may be reasonable to be on a gluten-free diet to see that would help. The significant other is aware of the diet because he has family members who are on a gluten-free diet. PLAN: Plan Chronic conditions * Diabetes mellitus type 2: fair control. Continue with glargine. Hold metformin for the time being. Add sliding scale insulin. * Diabetic neuropathy VTE prophylaxis with enoxaparin. Greater than 35 minutes of which greater than 50% of the time was discussing with the patient and her about the potential for discharge today pending surgery but also cultures and also addressing her chronic nausea vomiting as to what that could be. Did discuss with him about following gluten-free diet to see if that may help her symptoms. Told him that it may not be celiac disease b ut it may be reasonable to try that to see if that seems to help her symptoms. Charges/Coding Visit Charges Inpatient E&M: 78364 Subs Hosp L2
--- NOTE | 2023-05-07 14:21 | PCM.OPRPT ---
Problems Associated Problem List Diagnoses (1) Gas gangrene: (2) Non-pressure chronic ulcer of other part of right foot with fat layer exposed: (3) Type 2 diabetes mellitus with peripheral neuropathy: Report of Operation Date of Procedure: 05/07/23 Pre-Operative Diagnosis: 1. Gas gangrene, resolved, right foot 2. Abscess, resolved, right foot 3. Equinus, right lower extremity Post-Operative Diagnosis: 1. Gas gangrene, resolved, right foot 2. Abscess, resolved, right foot 3. Equinus, right lower extremity Surgery/Procedure Performed:: 1. Tendo Achillis lengthening, right lower extremity 2. Delayed primary closure, right foot Description of Surgical Findings:: 1. Dorsiflexion greater than 90 degrees after CRISTY to the right lower extremity 2. Complete closure of the dorsal and plantar wound, right foot Surgeon: Stephan Forrest music researcher: None Type of Anesthesia: Local and MAC Anesthesiologist: David José Special Medications: None Specimen's removed: None Drains: None Estimated Blood Loss (mL): 10 mL Fluids Replaced: 800 mL Description of Procedure: Indications For Operation: Ms. Givens is a 33-year-old diabetic female who was admitted to [facility] for gas gangrene to the right foot. Due to the nature of the gas gangrene to the right lower extremity the patient was taken emergently for incision and drainage and deep cultures the right lower extremity. Date of surgery 05/04/2023. Since then the patient has been getting IV antibiotics and dressing changes on the floor. The patient's redness and erythema has resolved. Due to resolution of the deep tissue infection to the right foot at the [facility] at this time to perform tendo Achilles lengthening secondary to equinus as well as delayed primary closure of the both dorsal and plantar incisions. The nature of the problem, anticipated procedures, postop recovery/convalences and risk/complications include but not limited to infection, wound healing complications, hypertrophic scarring, numbness, tingling, chronic pain, CRPS, over and under correction, recurrence of deformity, DVT and or PE and the need for further surgery have been discussed in great detail with the patient. All questions have been answered to the patient's satisfaction. There are no guarantees given as to the outcome of the procedure. Description of Procedure: Under mild sedation, the patient was brought into the operating room and placed on the operating table in supine position. Once the patient was under monitored anesthesia care, the right lower extremity was blocked using approximately 20 cc 0.5% Marcaine plain. No tourniquet was used at this time. Next, the right lower extremity was prepped and draped in normal septic manner. Next, a timeout was then undertaken verifying the correct patient, extremity, visibility of preoperative markings, availability of the equipment. Next, attention was directed to the right lower extremity at the level of the Achilles tendon. Using a skin marker and ruler percutaneous tendo Achilles lengthening incision were marked out of the 5 cm, 8 cm and 11 cm stoddard. Using a #11 blade, percutaneous incisions were made in the medial direction of the 5 cm naya, lateral direction at the 8 cm naya and medial direction at the 11 cm naya. Light dorsiflexion was applied to the right foot which showed release/lengthening of the Achilles tendon. The right ankle was put through range of motion and the patient was able to get greater than 90 degrees on the operating table. All 3 incisions were flushed with copious normal saline. The percutaneous skin incisions were closed with 3-0 nylon in simple interrupted suture technique. Next, attention was directed to the incisions, dorsal and plantarly of the right foot. Using a rongeur, excisional debridement was carried down to the level of subcutaneous tissue to remove any extra tissue that looked nonviable. After debridement of both incision the wound base was 100% granular in nature. Both incisions were flushed with copious months normal saline. The plantar incision was reapproximated and closed using 2-0 nylon in vertical and horizontal mattress suture technique. Next, attention was directed to the dorsal incision, the deep layer was closed with 3-0 Vicryl in running suture technique. The skin was reapproximated and closed with 2-0 nylon in horizontal mattress suture technique. The right lower extremity was wiped clean and patted dry. All incisions were dressed with Betadine soaked Adaptic, dry sterile dressing and a 2 layer Eldridge AO splint was applied to the right lower extremity to allow and keep the ankle at 90 degrees. The patient tolerated the procedure and anesthesia well and apparent satisfactory condition and was transported to the PACU for further monitoring prior to discharge back to the floor. Vital signs stable and vascular status intact to all digits bilateral. Post Operative Plan: Weightbearing: Nonweightbearing to the right lower extremity, full weightbearing to the left lower extremity Antibiotics: Vancomycin DVT Prophylaxis: Enoxaparin. [place]: None Dressing: Betadine soaked Adaptic, dry sterile dressing, 2 layer Eldridge compression AO splint X-Rays: None Pain Medication: Per medicine team Follow-up: Patient is to follow-up 1 week postop at the wound care center [facility]. Please call the wound care center for appointment and time. Grafts/Implants Used: None Complications None Admit VTE Documentation VTE Present on Admission: Yes VTE Mechan Device Prophylaxis: SCD's VTE Pharm Prophylaxis ordered?: Yes
[2023-05-07] MEDS: Bupivacaine Mpf 0.5% 30 ML VIAL (15:10)
[2023-05-07 16:15] LABS: Bedside Glucose 102 mg/dL (74-106)
[2023-05-07] MEDS: Pantoprazole Sodium 40 MG Tablet PO (16:51)
[2023-05-07 17:09] LABS: Bedside Glucose 102 mg/dL (74-106)
[2023-05-07] MEDS: Ondansetron ODT 4 MG Tablet PO (17:18)
[2023-05-07] MEDS: 0.9% Saline Lock 10 ML Syringe IV (20:36)
[2023-05-07] MEDS: Insulin Glargine-YFGN 100 UNIT/ML Pen 15 UNIT SC (20:36)
[2023-05-07 21:11] LABS: Bedside Glucose 189 mg/dL (74-106)
[2023-05-07] MEDS: Ondansetron 4 MG/2 ML Vial IV (22:11)
[2023-05-07] MEDS: traZODone 100 MG Tablet 300 MG PO (22:35)
[2023-05-07] MEDS: Acetaminophen 325 MG Tablet 650 MG PO (22:36)
[2023-05-07] MEDS: oxyCODONE 5 MG Tablet PO (22:36)
[2023-05-08 03:49] VITALS: BP 140/102; PULSE 83; RESP 20; TEMP 36.7; O2SAT 99
[2023-05-08] MEDS: Bisacodyl 10 MG Suppository RC ×2 (04:02→15:01)
[2023-05-08] MEDS: oxyCODONE 5 MG Tablet PO (05:07)
[2023-05-08] MEDS: Dicyclomine 10 MG Capsule 20 MG PO (05:07)
[2023-05-08] MEDS: Piperacil/Tazobactam 3.375 GM in 0.9% Normal Saline (50mL MB+) 50 ML IV ×2 (05:17→13:33)
[2023-05-08] MEDS: 0.9% Normal Saline (250mL Bag) 250 ML 15 ML IV (05:20)
[2023-05-08] MEDS: Insulin Lispro 100 UNIT/ML INSULN.PEN SC (05:21)
[2023-05-08 06:16] LABS: Bedside Glucose 158 mg/dL (74-106)
--- NOTE | 2023-05-08 07:49 | PN.HOSP_ITS ---
Reason for Visit Reason for Visit: Diagnoses Gas gangrene (05/04/23) Type 2 diabetes mellitus with diabetic polyneuropathy (05/04/23) Type 2 diabetes mellitus with other skin complications (05/04/23) Local infection of the skin and subcutaneous tissue, unspecified (05/04/23) Non-pressure chronic ulcer of other part of right foot with fat layer exposed (05/04/23) Nausea with vomiting, unspecified (05/04/23) Subjective Subjective Complains of severe abdominal pain and retching. Objective Data Objective Data Vital Signs: Vital Signs Temp Pulse Resp BP Pulse Ox O2 Del Method O2 Flow Rate 36.7 C 83 20 H 140/102 H 99 Room Air 96 05/08/23 03:49 05/08/23 03:49 05/08/23 03:49 05/08/23 03:49 05/08/23 03:49 05/08/23 03:49 05/04/23 15:23 Oxygen Flow Rate (L/min) 96 Oxygen Delivery Method Room Air Weight: 94.2 kg Body Mass Index (BMI) 33.5 Intake & Output: Intake and Output for Last 24 Hours 05/06/23 05/07/23 05/08/23 23:59 23:59 23:59 Intake Total 2659.00 / 2859.00 950 / 950 50 / 50 Output Total 1300 / 1300 400 / 400 Balance 1359.00 / 1559.00 950 / 750 -350 / -350 Lab / Micro Data 05/06/23 06:05 05/07/23 06:00 Labs: Laboratory Results - last 24 hr 05/07/23 11:16: POC Glucose 125 H 05/07/23 15:57: POC Glucose 102 05/07/23 16:38: POC Glucose 102 05/07/23 20:30: POC Glucose 189 H 05/08/23 05:18: POC Glucose 158 H Micro: Microbiology 05/04/23 12:10 Wound - Right Foot Gram Stain - Final 05/04/23 12:10 Wound - Right Foot Wound Culture - Preliminary Beta streptococcus Coag Negative Staph Gram positive organism 05/04/23 17:40 Tissue - Right Foot Gram Stain - Final 05/04/23 17:40 Tissue - Right Foot Wound Culture - Preliminary Beta streptococcus Coag Negative Staph Coag Negative Staph#2 05/04/23 17:40 Wound - Right Foot Gram Stain - Final 05/04/23 17:40 Wound - Right Foot Wound Culture - Preliminary Beta streptococcus Gram positive organism 05/04/23 17:40 Wound - Right Foot Gram Stain - Final 05/04/23 17:40 Wound - Right Foot Wound Culture - Preliminary Streptococcus dysgalactiae equ Staphylococcus species 05/04/23 17:40 Wound - Right Foot Anaerobic Culture - Preliminary 05/04/23 12:00 Blood Culture (Wb) - Anticubital Left Blood Culture - Preliminary No growth in 48 hours. 05/04/23 11:40 Blood Culture (Wb) - Anticubital Left Blood Culture - Preliminary No growth in 48 hours. Physical Exam Const Constitutional Narrative: Crying. Was able to turn on her back. Resp normal respiratory effort, no retractions, no use of accessory muscles and clear to auscultation bilaterally Cardio regular rate, regular rhythm, S1 normal heart sound and S2 normal heart sound GI normal to inspection, nondistended, normoactive bowel sounds, soft to palpation and non-distended GI Narrative: Abdomen is soft but exquisitely tender just to the mild palpation of her skin. Neuro Sensorium / Orientation: awake and alert Psych Mood & Affect: anxious Assessment & Plan Assessment/Plan (1) Diabetic foot infection: PLAN: With gas gangrene, abscess, full thickness ulceration with fat exposed. Pt underwent incision and drainage right foot on 05/04. Antibiotics with vancomycin and also add piperacillin/tazobactam. Follow-up cult ures. Thus far showing Group C Strep, will vancomycin for now. Nonweightbearing on right lower extremity until okayed by podiatry. MRI showed ulcer at the plantar aspect of the forefoot with suspected adjacent abscess Further mgmt per podiatry. Pt had bedside I+D that showed scant purulent drainage. Definite procedure planned for 05/07 with excisional debridement w washout, delay primary closure. Cx showing Strep dysgalactiae and staph sp. Follow up cultures. (2) Nausea and vomiting: PLAN: Chronic Has had a GES that was reportedly negative. I told he and her significant other that it is unclear what it could be. It could be gastroparesis v other. It may be reasonable to be on a gluten-free diet to see that would help. The significant other is aware of the diet because he has family members who are on a gluten-free diet. 05/08: Abdominal pain is worse. Exam is pretty unremarkable. Will check an abdominal x-ray. Patient reportedly has had an extensive work-up. We will see how she does if this can improve or not. PLAN: Plan Chronic conditions * Diabetes mellitus type 2: fair control. Continue with glargine. Hold metformin for the time being. Add sliding scale insulin. * Diabetic neuropathy VTE prophylaxis with enoxaparin. Charges/Coding Visit Charges Inpatient E&M: 94406 Subs Hosp L2
[2023-05-08] MEDS: Ondansetron ODT 4 MG Tablet PO (08:43)
[2023-05-08 08:48] VITALS: BP 134/100; PULSE 78; RESP 20; TEMP 37.2; O2SAT 98
--- NOTE | 2023-05-08 09:17 | PCM.PN.SRG ---
Subjective Subjective Mrs. Givens is a 33-year-old diabetic female seen at bedside in a for day 1 postop. Patient is status post delayed primary closure with tendo Achilles lengthening and application of AO splint to the right lower extremity. Patient is to having some pain to the posterior aspect of her right ankle. This is most likely from the tendo Achilles lengthening. Patient does admit to having some discomfort to her stomach and has vomited since surgery. She relates this to a past illness that she was dealing with the same symptoms that lasted for approximately 3 to 5 months. She was never fully diagnosed for the condition and is unable to give details except for she is having the same feeling as she did last time. She denies any constitutional symptoms except for nausea and vomiting. She has kept her AO splint clean dry and intact. No other pedal complaints at this time. Objective Data Objective Data Vital Signs: Vital Signs Temp Pulse Resp BP Pulse Ox O2 Del Method O2 Flow Rate 98.9 F 78 20 H 134/100 H 98 Room Air 96 05/08/23 08:48 05/08/23 08:48 05/08/23 08:48 05/08/23 08:48 05/08/23 08:48 05/08/23 08:53 05/04/23 15:23 Oxygen Flow Rate (L/min) 96 Oxygen Delivery Method Room Air Weight: 94.2 kg Body Mass Index (BMI) 33.5 Intake & Output: Intake and Output for Last 24 Hours 05/06/23 05/07/23 05/08/23 23:59 23:59 23:59 Intake Total 2659.00 / 2859.00 950 / 950 50 / 50 Output Total 1300 / 1300 400 / 400 Balance 1359.00 / 1559.00 950 / 750 -350 / -350 Lab / Micro Data Attestation: I reviewed the patient's lab results. 05/06/23 06:05 05/07/23 06:00 Labs: Laboratory Results - last 24 hr 05/07/23 11:16: POC Glucose 125 H 05/07/23 15:57: POC Glucose 102 05/07/23 16:38: POC Glucose 102 05/07/23 20:30: POC Glucose 189 H 05/08/23 05:18: POC Glucose 158 H Micro: Microbiology 05/04/23 17:40 Wound - Right Foot Gram Stain - Final 05/04/23 17:40 Wound - Right Foot Wound Culture - Final Streptococcus dysgalactiae dys 05/04/23 17:40 Tissue - Right Foot Gram Stain - Final 05/04/23 17:40 Tissue - Right Foot Wound Culture - Final Streptococcus dysgalactiae equ Staphylococcus epidermidis Staphylococcus hominis hominis 05/04/23 17:40 Wound - Right Foot Gram Stain - Final 05/04/23 17:40 Wound - Right Foot Wound Culture - Final Streptococcus dysgalactiae equ Staphylococcus warneri 05/04/23 12:10 Wound - Right Foot Gram Stain - Final 05/04/23 12:10 Wound - Right Foot Wound Culture - Final Streptococcus dysgalactiae equ Coag Negative Staph Staphylococcus simulans 05/04/23 12:00 Blood Culture (Wb) - Anticubital Left Blood Culture - Preliminary No growth in 48 hours. 05/04/23 11:40 Blood Culture (Wb) - Anticubital Left Blood Culture - Preliminary No growth in 48 hours. Physical Exam Narrative Neurovascular is unchanged. Nonpitting edema appreciated to the distal and proximal aspect of the right AO splint. The AO splint to the right lower extremity. Active and passive range of motion to the digits is pain-free. No pain with calf compression. He stated to the subfifth metatarsal of the left foot. Elongated toenails 1 through 5 bilateral. Assessment & Plan Assessment/Plan (1) Gas gangrene: PLAN: Patient was examined and evaluated. All findings were discussed with the patient. All questions were answered to the patient satisfaction. Right lower extremity AO splint was left clean dry and intact. Patient is to be nonweightbearing to the right foot. Full weightbearing to left lower extremity with assistance of walker or crutches. Sx Cx: Pre-Lavage Cx: S. dygalactiae, S epidermidis, S hominis mominis Post-Lavage Cx: S. dygalactiae Medicine: On board, medical management, IV antibiotics Vancomycin and Zosyn. Patient is cleared from a podiatry perspective for discharge once cleared by medicine team. Recommend 2 weeks of oral antibiotics based on final cultures and sensitivity. Patient is to follow-up with Dr. Forrest as an outpatient 1 week postdischarge in private office. Thank you for letting me be involved in the patient's care. (2) Non-pressure chronic ulcer of other part of right foot with fat layer exposed: (3) Tightness of right heel cord: (4) Type 2 diabetes mellitus with peripheral neuropathy:
[2023-05-08] MEDS: proCHLORPERazine 10 MG/2 ML Vial 5 MG IV (09:38)
--- NOTE | 2023-05-08 10:50 | RAD_ITS ---
INDICATION: abdominal pain EXAMINATION/TECHNIQUE: X-RAY - XR Abdomen 1 View COMPARISON: FINDINGS: BOWEL GAS PATTERN: Moderate stool throughout the colon. Main of bowel gas pattern normal. FREE AIR: Not assessed on a single supine view. ORGANOMEGALY: Not seen. CALCIFICATIONS: No abnormal calcifications observed. LOWER CHEST: No acute pathology. BONES AND SOFT TISSUES: No acute pathology. RAD/Abdomen Single View (Portable) IMPRESSION: Fecal stasis. Electronically Signed: Pranay Maynard MD at 11:22 EDT ,
[2023-05-08] MEDS: Insulin Glargine-YFGN 100 UNIT/ML Pen 15 UNIT SC ×2 (11:05→22:54)
[2023-05-08] MEDS: Enoxaparin 40 MG/0.4 ML Syringe SC (11:05)
[2023-05-08] MEDS: Pantoprazole Sodium 40 MG Tablet PO (11:05)
[2023-05-08 11:58] LABS: Bedside Glucose 164 mg/dL (74-106)
[2023-05-08] MEDS: Dicyclomine 20 MG/2 ML Vial IM ×3 (13:34→22:45)
[2023-05-08] MEDS: Polyethylene Glycol 3350 17 GM PACKET PO (14:49)
[2023-05-08 16:15] VITALS: BP 112/77; PULSE 70; RESP 18; TEMP 36.7; O2SAT 98
[2023-05-08 16:23] LABS: Bedside Glucose 148 mg/dL (74-106)
[2023-05-08] MEDS: Ampicillin 2 GM in 0.9% Normal Saline (100mL MB+) 100 ML IV ×2 (18:19→23:05)
[2023-05-08 22:44] VITALS: BP 138/85; PULSE 92; RESP 16; TEMP 36.4; O2SAT 100
[2023-05-08] MEDS: traZODone 100 MG Tablet 300 MG PO (22:48)
[2023-05-08] MEDS: Ondansetron 4 MG/2 ML Vial IV (22:50)
[2023-05-08 23:19] LABS: Bedside Glucose 135 mg/dL (74-106)
[2023-05-09] MEDS: Metoclopramide 10 MG/2 ML Vial 5 MG IV (03:38)
[2023-05-09 03:43] VITALS: BP 138/106; PULSE 95; RESP 18; TEMP 36.5; O2SAT 98
[2023-05-09] MEDS: Ampicillin 2 GM in 0.9% Normal Saline (100mL MB+) 100 ML IV ×2 (06:30→13:06)
[2023-05-09] MEDS: Insulin Lispro 100 UNIT/ML INSULN.PEN SC ×2 (06:35→10:54)
[2023-05-09 06:54] LABS: Bedside Glucose 162 mg/dL (74-106)
[2023-05-09 07:37] VITALS: BP 149/107; PULSE 77; RESP 18; TEMP 36.7; O2SAT 100
[2023-05-09] MEDS: Dicyclomine 20 MG/2 ML Vial IM (07:41)
[2023-05-09] MEDS: Bisacodyl 10 MG Suppository RC (07:47)
--- NOTE | 2023-05-09 07:52 | PN.HOSP_ITS ---
Reason for Visit Reason for Visit: Diagnoses Gas gangrene (05/04/23) Type 2 diabetes mellitus with diabetic polyneuropathy (05/04/23) Type 2 diabetes mellitus with other skin complications (05/04/23) Local infection of the skin and subcutaneous tissue, unspecified (05/04/23) Non-pressure chronic ulcer of other part of right foot with fat layer exposed (05/04/23) Short Achilles tendon (acquired), right ankle (05/04/23) Nausea with vomiting, unspecified (05/04/23) Subjective Subjective Still with severe abdominal pain. Objective Data Objective Data Vital Signs: Vital Signs Temp Pulse Resp BP Pulse Ox O2 Del Method O2 Flow Rate 36.7 C 77 18 149/107 H 100 Room Air 96 05/09/23 07:37 05/09/23 07:37 05/09/23 07:37 05/09/23 07:37 05/09/23 07:37 05/09/23 07:37 05/04/23 15:23 Oxygen Flow Rate (L/min) 96 Oxygen Delivery Method Room Air Weight: 94.2 kg Body Mass Index (BMI) 33.5 Intake & Output: Intake and Output for Last 24 Hours 05/07/23 05/08/23 05/09/23 23:59 23:59 23:59 Intake Total 950 / 950 1517.29 / 1717.29 400 / 400 Output Total 600 / 600 Balance 950 / 750 917.29 / 1117.29 400 / 400 Lab / Micro Data 05/06/23 06:05 05/07/23 06:00 Labs: Laboratory Results - last 24 hr 05/08/23 11:40: POC Glucose 164 H 05/08/23 16:04: POC Glucose 148 H 05/08/23 22:54: POC Glucose 135 H 05/09/23 06:34: POC Glucose 162 H Micro: Microbiology 05/04/23 17:40 Wound - Right Foot Gram Stain - Final 05/04/23 17:40 Wound - Right Foot Wound Culture - Final Streptococcus dysgalactiae dys 05/04/23 17:40 Tissue - Right Foot Gram Stain - Final 05/04/23 17:40 Tissue - Right Foot Wound Culture - Final Streptococcus dysgalactiae equ Staphylococcus epidermidis Staphylococcus hominis hominis 05/04/23 17:40 Wound - Right Foot Gram Stain - Final 05/04/23 17:40 Wound - Right Foot Wound Culture - Final Streptococcus dysgalactiae equ Staphylococcus warneri 05/04/23 12:10 Wound - Right Foot Gram Stain - Final 05/04/23 12:10 Wound - Right Foot Wound Culture - Final Streptococcus dysgalactiae equ Coag Negative Staph Staphylococcus simulans 05/04/23 12:00 Blood Culture (Wb) - Anticubital Left Blood Culture - Preliminary No growth in 48 hours. 05/04/23 11:40 Blood Culture (Wb) - Anticubital Left Blood Culture - Preliminary No growth in 48 hours. Radiography Diagnostic Testing: Radiology Impression KUB X-Ray 05/08/23 10:50 IMPRESSION: Fecal stasis. Electronically Signed: Pranay Maynard MD at 11:22 EDT , Physical Exam Const alert Constitutional Narrative: tearful. sitting up in bed. HEENT head/scalp atraumatic and moist oral mucous membranes GI GI Narrative: soft, ND, no masses. exquisitely TTP even with distraction. Assessment & Plan Assessment/Plan (1) Diabetic foot infection: PLAN: With gas gangrene, abscess, full thickness ulceration with fat exposed. Pt underwent incision and drainage right foot on 05/04. Antibiotics with vancomycin and also add piperacillin/tazobactam. Follow-up cultures. Thus far showing Group C Strep, will vancomycin for now. Nonweightbearing on right lower extremity until okayed by podiatry. MRI showed ulcer at the plantar aspect of the forefoot with suspected adjacent abscess Further mgmt per podiatry. Pt had bedside I+D that showed scant purulent drainage. Definite procedure planned for 05/07 with excisional debridement w washout, delay primary closure. Cx showing Strep dysgalactiae, S. epi, Staph hominis. Can discharge with amoxicillin/CA and levofloxacin. (2) Nausea and vomiting: PLAN: Chronic Has had a GES that was reportedly negative. I told he and her significant other that it is unclear what it could be. It could be gastroparesis v other. It may be reasonable to be on a gluten-free diet to see that would help. The significant other is aware of the diet because he has family members who are on a gluten-free diet. 05/08: Abdominal pain is worse. Exam is pretty unremarkable. Patient reportedly has had an extensive work-up. We will see how she does if this can improve or not. Abdominal xray showed constipation. Pt had Miralax and dulcolax already ordered, but was not taking. 05/09: exam benign except for the pain. Data for OSH review through [facility]: * CT A/P on 03/03/23: Unremarkable. * Abdominal Xray 03/02/23: No acute findings. * EGD 02/19/23: esophageal ulcer. mild gastritis. normal duodenum. * Pelvic US 02/11/23: Normal * Abdominal US 02/11/23: fatty liver. No acute findings. * Gastric emptying study 02/11/23: Initially rapid gastric emptying, but remainder of ananya examination is normal w/o evidence of gastroparesis. * CT A/P 01/10/23: left hydrosalpinx. Mildly dilated CBD. PLAN: Plan Chronic conditions * Diabetes mellitus type 2: fair control. Continue with glargine. Hold metformin for the time being. Add sliding scale insulin. * Diabetic neuropathy VTE prophylaxis with enoxaparin. Greater than 55 minutes of which greater than for present time was discussing case with the patient at bedside in regards to her benign exam and negative work-up here but also that she does have constipation. Also reviewing records through [facility]. Charges/Coding Visit Charges Inpatient E&M: 24347 Subs Hosp L3
--- NOTE | 2023-05-09 10:18 | PCM.PN.SRG ---
Subjective Subjective Ms. Givens is a 33-year-old diabetic female seen at bedside today for postop evaluation. Patient admits she is having no pain to the right lower extremity to the level of the Achilles tendon. She has kept her AO splint clean dry and intact. She is nonweightbearing to the right lower extremity with walker. She denies trauma. Denies constitutional symptoms. No other pedal complaints at this time. Objective Data Objective Data Vital Signs: Vital Signs Temp Pulse Resp BP Pulse Ox O2 Del Method O2 Flow Rate 98.1 F 77 18 149/107 H 100 Room Air 96 05/09/23 07:37 05/09/23 07:37 05/09/23 07:37 05/09/23 07:37 05/09/23 07:37 05/09/23 07:37 05/04/23 15:23 Oxygen Flow Rate (L/min) 96 Oxygen Delivery Method Room Air Weight: 94.2 kg Body Mass Index (BMI) 33.5 Intake & Output: Intake and Output for Last 24 Hours 05/07/23 05/08/23 05/09/23 23:59 23:59 23:59 Intake Total 950 / 950 1517.29 / 1717.29 400 / 400 Output Total 600 / 600 Balance 950 / 750 917.29 / 1117.29 400 / 400 Lab / Micro Data Attestation: I reviewed the patient's lab results. 05/06/23 06:05 05/07/23 06:00 Labs: Laboratory Results - last 24 hr 05/08/23 11:40: POC Glucose 164 H 05/08/23 16:04: POC Glucose 148 H 05/08/23 22:54: POC Glucose 135 H 05/09/23 06:34: POC Glucose 162 H Micro: Microbiology 05/04/23 17:40 Wound - Right Foot Gram Stain - Final 05/04/23 17:40 Wound - Right Foot Wound Culture - Final Streptococcus dysgalactiae dys 05/04/23 17:40 Tissue - Right Foot Gram Stain - Final 05/04/23 17:40 Tissue - Right Foot Wound Culture - Final Streptococcus dysgalactiae equ Staphylococcus epidermidis Staphylococcus hominis hominis 05/04/23 17:40 Wound - Right Foot Gram Stain - Final 05/04/23 17:40 Wound - Right Foot Wound Culture - Final Streptococcus dysgalactiae equ Staphylococcus warneri 05/04/23 12:10 Wound - Right Foot Gram Stain - Final 05/04/23 12:10 Wound - Right Foot Wound Culture - Final Streptococcus dysgalactiae equ Coag Negative Staph Staphylococcus simulans 05/04/23 12:00 Blood Culture (Wb) - Anticubital Left Blood Culture - Preliminary No growth in 48 hours. 05/04/23 11:40 Blood Culture (Wb) - Anticubital Left Blood Culture - Preliminary No growth in 48 hours. Radiography Diagnostic Testing: Radiology Impression KUB X-Ray 05/08/23 10:50 IMPRESSION: Fecal stasis. Electronically Signed: Pranay Maynard MD at 11:22 EDT , Physical Exam Narrative Neurovascular is unchanged. Nonpitting edema appreciated to the distal and proximal aspect of the right AO splint. The AO splint to the right lower extremity. Active and passive range of motion to the digits is pain-free. No pain with calf compression. He stated to the subfifth metatarsal of the left foot. Elongated toenails 1 through 5 bilateral. Assessment & Plan Assessment/Plan (1) Gas gangrene: PLAN: Patient was examined and evaluated. All findings were discussed with the patient. All questions were answered to the patient satisfaction. Right lower extremity AO splint was left clean dry and intact. Patient is to be nonweightbearing to the right foot. Full weightbearing to left lower extremity with assistance of walker or crutches. Sx Cx: Pre-Lavage Cx: S. dygalactiae, S epidermidis, S hominis mominis Post-Lavage Cx: S. dygalactiae Medicine: On board, medical management, IV antibiotics Vancomycin and Zosyn. Patient is cleared from a podiatry perspective for discharge once cleared by medicine team. Recommend 2 weeks of oral antibiotics based on final cultures and sensitivity. Podiatry to sign off and follow from a distance. Please reconsult with any questions or concerns. Patient will follow-up 1 week postdischarge in private office. Thank you for letting me be involved in the patient's care! (2) Non-pressure chronic ulcer of other part of right foot with fat layer exposed: (3) Tightness of right heel cord: (4) Type 2 diabetes mellitus with peripheral neuropathy:
[2023-05-09] MEDS: levoFLOXacin IV 750 MG/150 ML BAG 100 MG IV (10:46)
[2023-05-09] MEDS: Polyethylene Glycol 3350 17 GM PACKET PO (10:46)
[2023-05-09] MEDS: Magnesium Citrate 300 ML 150 ML PO (10:49)
[2023-05-09] MEDS: Insulin Glargine-YFGN 100 UNIT/ML Pen 15 UNIT SC (10:54)
[2023-05-09] MEDS: Enoxaparin 40 MG/0.4 ML Syringe SC (10:56)
[2023-05-09] MEDS: Pantoprazole Sodium 40 MG Tablet PO (10:57)
[2023-05-09 11:20] LABS: Bedside Glucose 157 mg/dL (74-106)
[2023-05-09 13:32] VITALS: BP 177/121; PULSE 74; RESP 18; TEMP 36.9; O2SAT 100
--- NOTE | 2023-05-09 13:54 | DS.PCM_ITS ---
Providers Date of Admission: 05/04/23 Primary Care Physician: No Primary Care Phys Consultations 05/04/23 19:30 Consult: Onc/Wound/wire roller Routine Comment: Reason For Visit: RIGHT FOOT WOUND Diagnosis Discharge Diagnosis (1) Diabetic foot infection: Status: Acute Code(s): E11.628 - Type 2 diabetes mellitus with other skin complications; L08.9 - Local infection of the skin and subcutaneous tissue, unspecified Plan: With gas gangrene, abscess, full thickness ulceration with fat exposed. Pt underwent incision and drainage right foot on 05/04. Antibiotics with vancomycin and also add piperacillin/tazobactam. Follow-up cultures. Thus far showing Group C Strep, will vancomycin for now. Nonweightbearing on right lower extremity until okayed by podiatry. MRI showed ulcer at the plantar aspect of the forefoot with suspected adjacent abscess Further mgmt per podiatry. Pt had bedside I+D that showed scant purulent drainage. Definite procedure planned for 05/07 with excisional debridement w washout, delay primary closure. Cx showing Strep dysgalactiae, S. epi, Staph hominis. Can discharge with amoxicillin/CA and levofloxacin. (2) Nausea and vomiting: Status: Acute Code(s): R11.2 - Nausea with vomiting, unspecified Plan: Chronic Has had a GES that was reportedly negative. I told he and her significant other that it is unclear what it could be. It could be gastroparesis v other. It may be reasonable to be on a gluten-free diet to see that would help. The significant other is aware of the diet because he has family members who are on a gluten-free diet. 05/08: Abdominal pain is worse. Exam is pretty unremarkable. Patient reportedly has had an extensive work-up. We will see how she does if this can improve or not. Abdominal xray showed constipation. Pt had Miralax and dulcolax already ordered, but was not taking. 05/09: exam benign except for the pain. Data for OSH review through [facility]: * CT A/P on 03/03/23: Unremarkable. * Abdominal Xray 03/02/23: No acute findings. * EGD 02/19/23: esophageal ulcer. mild gastritis. normal duodenum. * Pelvic US 02/11/23: Normal * Abdominal US 02/11/23: fatty liver. No acute findings. * Gastric emptying study 02/11/23: Initially rapid gastric emptying, but remainder of ananya examination is normal w/o evidence of gastroparesis. * CT A/P 01/10/23: left hydrosalpinx. Mildly dilated CBD. Plan Chronic conditions * Diabetes mellitus type 2: fair control. Continue with glargine. Hold metformin for the time being. Add sliding scale insulin. * Diabetic neuropathy VTE prophylaxis with enoxaparin. Greater than 55 minutes of which greater than for present time was discussing case with the patient at bedside in regards to her benign exam and negative work-up here but also that she does have constipation. Also reviewing records through [facility]. Medications at Discharge Home Medications albuterol sulfate 90 mcg/actuation aerosol inhaler (Ventolin HFA) 1 inh inhalation Q4H SOB 04/06/22 insulin glargine 100 unit/mL (3 mL) subcutaneous pen (Lantus Solostar U-100 Insulin) 15 unit subcut BID diabetes 08/12/22 hyoscyamine sulfate 0.125 mg sublingual tablet (Levsin/SL) 0.125 mg PO TID PRN abdominal pain #10 tabs 01/07/23 bisacodyl 10 mg rectal suppository (Dulcolax (bisacodyl)) 10 mg MA DAILY 3 days #12 ea 01/15/23 acetaminophen 325 mg tablet 650 mg (2 x 325 mg) PO Q6H PRN PRN Pain 1-10 Or Fever >100.7 #0 tabs 05/09/23 amoxicillin 875 mg-potassium clavulanate 125 mg tablet 1 tab PO Q12H #24 tabs 05/09/23 dicyclomine 20 mg tablet 20 mg PO TID PRN abdominal pain #30 tabs 05/09/23 levofloxacin 750 mg tablet 750 mg PO DAILY #12 tabs 05/09/23 metoclopramide HCl 5 mg tablet (Reglan) 5 mg PO Q6H PRN nausea and vomiting 3 days #20 tabs 05/09/23 ondansetron HCl 8 mg tablet 8 mg PO Q8H 5 days #15 tabs 05/09/23 Hospital Course Operations - (1. Incision and drainage, right foot then 1. Tendo Achillis lengthening, right lower extremity 2. 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 Patient underwent an I&D of her right foot on the that showed abscess and gas gangrene. Patient had bedside I&D because the MRI was concerning for abscess but did show just a pos toperative hematoma. Patient went back on the and she underwent tendo Achilles lengthening, right lower extremity delayed primary closure. Patient's course was rather uncomplicated as we are just waiting on culture results come back. Patient had noted, when she was comfortable, that she had some issues regards to nausea and vomiting. Explained that she has had extensive work-up for this including gastric emptying study EGD and so forth. Later on that evening, patient started having intractable abdominal pain as well as nausea and vomiting. Went and saw the patient the next day and she was actually laying on her abdomen I had her turn onto her back and then as I was just not even having the chance to actually palpate but just grazed her skin she was screaming out in pain. We did do an x-ray that showed constipation. But no other acute process. I was able to review data from outside hospitals including [facility] in [place] as well as [facility] and [place], [place]. Patient has had CAT scans, EGDs, ultrasounds. Also was able to review some notes and the work-up has been unremarkable. Patient had previously been seen by psychiatry one of the institutions. It seems that this is more psychosomatic whether or not this may be conversion disorder, malingering, is unclear. Patient was able to shows that she had a bag full of liquid emesis. It was clear liquid and patient just explained that she is having pain when she was sitting up and that she was able to lay herself down. Stated the pain was so intense that she could not bear it. Likely unbeknownst to her, patient was observed via camera shortly afterwards and as she was sitting upright on her phone in no distress. Patient was able to turn to her bedside table on her left and with her right hand was able to get what appeared to be either a Kleenex or towel to wipe her face. I did discuss case with the patient's primary care provider, Amy Dasilva, and she notes concern for some drug-seeking behavior as patient has been to numerous hospitals in the past. I have reviewed patient's prior drug screens and that they have been negative for cannabinoids. Patient has been consistent in saying that she is not smoking any marijuana. This does appear to be psychiatric. That has been a concern in some the other institutions as well. Reassurance was provided to the patient and you the patient has not had a direct fluid challenge her inconsistent exam and the fact that she will go from 1 extreme to an being completely comfortable within mere moments indicates to me that there needs not be any additional work-up done while she was here. Patient will be discharged with Augmentin as well as Levaquin. Patient to complete a 2-week course of antibiotics. Patient to follow-up with podiatry. Weight / BMI Weight Weight: 94.2 kg Body Mass Index (BMI) 33.5 ABG / Lab / Microbiology Data 05/06/23 06:05 05/07/23 06:00 Laboratory: Laboratory Results - last 24 hr 05/08/23 16:04: POC Glucose 148 H 05/08/23 22:54: POC Glucose 135 H 05/09/23 06:34: POC Glucose 162 H 05/09/23 10:53: POC Glucose 157 H Microbiology: Microbiology 05/04/23 12:00 Blood Culture (Wb) - Anticubital Left Blood Culture - Final No growth in 5 days. 05/04/23 11:40 Blood Culture (Wb) - Anticubital Left Blood Culture - Final No growth in 5 days. 05/04/23 17:40 Wound - Right Foot Gram Stain - Final 05/04/23 17:40 Wound - Right Foot Wound Culture - Final Streptococcus dysgalactiae dys 05/04/23 17:40 Tissue - Right Foot Gram Stain - Final 05/04/23 17:40 Tissue - Right Foot Wound Culture - Final Streptococcus dysgalactiae equ Staphylococcus epidermidis Staphylococcus hominis hominis 05/04/23 17:40 Wound - Right Foot Gram Stain - Final 05/04/23 17:40 Wound - Right Foot Wound Culture - Final Streptococcus dysgalactiae equ Staphylococcus warneri 05/04/23 12:10 Wound - Right Foot Gram Stain - Final 05/04/23 12:10 Wound - Right Foot Wound Culture - Final Streptococcus dysgalactiae equ Coag Negative Staph Staphylococcus simulans D/C Instructions Discharge Diet: 2000 Calorie Control Diet and - (try to avoid gluten free foods for 2weeks to see if that helps your symptoms. ) Meaningful Use Info Meaningful Use Diagnoses (Choose all that apply): None applicable Discharge Plan Admission Admit Date/Time: 05/04/23 17:57 Primary Reason for Your Visit: gas gangrene right foot. Attending Provider: Rickey Gifford Primary Care Provider: Care Physician,No Primary Consulting Providers: Stephan Forrest Instructions Additional Instructions / Restrictions: Non-weight bearing Right leg. Follow-up with podiatry. Given extensive work-up for your abdominal pain. The work-up included CAT scans, ultrasound, EGDs, gastric emptying studies. These have all been unremarkable. It is my feeling as well as other providers that is [facility] is that this is certainly exacerbated by some anxiety. Do recommend follow-up with your primary care provider. To be beneficial for you to see psychiatry as you have seen psychiatry at other institutions. No marijuana. No narcotics. Discharge Orders/Prescriptions Prescriptions: New acetaminophen 325 mg Tablet 650 mg PO Q6H PRN PRN (Reason: Pain 1-10 Or Fever >100.7) Qty: 0 0RF ondansetron HCl 8 mg tablet 8 mg PO Q8H 5 Days Qty: 15 0RF Rx Instructions: 1st dose 1-2 hr before radiation metoclopramide HCl [Reglan] 5 mg tablet 5 mg PO Q6H PRN (Reason: nausea and vomiting) 3 Days Qty: 20 0RF levofloxacin 750 mg tablet 750 mg PO DAILY Qty: 12 0RF amoxicillin-pot clavulanate 875-125 mg tablet 1 tab PO Q12H Qty: 24 0RF Continued albuterol sulfate [Ventolin HFA] 90 mcg/actuation HFA aerosol inhaler 1 inh INHALATION Q4H insulin glargine [Lantus Solostar U-100 Insulin] 100 unit/mL (3 mL) insulin pen 15 unit SUBCUT BID Patient Comments: inject 20 units subcutaneous twice daily bisacodyl [Dulcolax (bisacodyl)] 10 mg suppository 10 mg MA DAILY 3 Days Qty: 12 0RF Rx Instructions: Hold for diarrhea dicyclomine 20 mg tablet 20 mg PO TID PRN (Reason: abdominal pain) Qty: 30 0RF hyoscyamine sulfate [Levsin/SL] 0.125 mg tablet, sublingual 0.125 mg PO TID PRN (Reason: abdominal pain) Qty: 10 0RF Discontinued omeprazole 40 mg capsule,delayed release(DR/EC) 40 mg PO BID Qty: 60 2RF Rx Instructions: take two times a day for 8 weeks then once a day Referrals / Follow Up: Stephan Forrest DPM [Med Staff - Active Staff] - (Follow-up with Dr. Forrest in private office 1 week postdischarge. Call office for appointment date and time.) Care Physician,No Primary [Primary Care Provider] - Amy Dasilva [employer], [employer] [Non-Staff -Ordering Privileges] - Within 2 Weeks Disposition Disposition (needs filled in before D/C Order can be placed): Home, Self Care Charges/Coding Visit Charges Inpatient E&M: 63431 Disch Hosp >30min
[2023-05-09 14:02] VITALS: BP 177/102; PULSE 74; RESP 18; TEMP 36.9; O2SAT 100
== END 2023-05-09 14:29 | disposition home or self-care (01) | DRG 951 ==
LOC: ED 13:04 → SDC 15:12 → ACINP 15:13 → MS3 21:11 → SDC 21:24 → MS3 21:24
PROVIDERS: Anesthesiology; Podiatrist Foot & Ankle Surgery; Emergency Provider Emergency Medicine
PROC: 0L8N3ZZ Division of Right Lower Leg Tendon, Percutaneous Approach (ICD-10-PCS; principal; 2023-05-07 13:20)
DX: E11.628 Type 2 diabetes mellitus with other skin complications (principal); L97.512 Non-pressure chronic ulcer of other part of right foot with fat layer exposed; A48.0 Gas gangrene; E11.52 Type 2 diabetes mellitus with diabetic peripheral angiopathy with gangrene; K22.10 Ulcer of esophagus without bleeding; E11.42 Type 2 diabetes mellitus with diabetic polyneuropathy; L02.611 Cutaneous abscess of right foot; E11.621 Type 2 diabetes mellitus with foot ulcer; Z79.4 Long term (current) use of insulin; K76.0 Fatty (change of) liver, not elsewhere classified; J45.909 Unspecified asthma, uncomplicated; I10 Essential (primary) hypertension; K83.8 Other specified diseases of biliary tract; K29.70 Gastritis, unspecified, without bleeding; F17.210 Nicotine dependence, cigarettes, uncomplicated; M21.6X1 Other acquired deformities of right foot; Z79.84 Long term (current) use of oral hypoglycemic drugs; Z79.899 Other long term (current) drug therapy
CPT/HCPCS: 36415; 73630; 73718; 74018; 80048; 80202; 81025; 82962; 83036; 83605; 85025; 85652; 86140; 87040; 87070; 87075; 87077; 87102; 87186; 87205; 87206; 97802; 99285; 99406; J7030; J7040; J7050; J7120; A4216; J0295; J2405

== ENCOUNTER → 2023-05-18 | Outpatient (CLI) | payer MEDICAID, SELFPAY | END | disposition home or self-care (01) | PROVIDERS: Visit Provider Podiatrist Foot & Ankle Surgery | DX: L02.611 Cutaneous abscess of right foot (principal) | CPT/HCPCS: 87070; 87075; 87077; 87101; 87186; 87205 ==

== ENCOUNTER 2023-06-25 09:26 | Emergency (ER) | payer MEDICAID, SELFPAY ==
[2023-06-25 09:27] VITALS: BP 158/104; PULSE 100; RESP 16; TEMP 35.8; O2SAT 96; BMI 32.1
--- NOTE | 2023-06-25 09:55 | EDS_ITS ---
HPI History of Present Illness Chief Complaint: Nausea/Vomiting Informant: patient Narrative Narrative: 33-year-old female presenting to the emergency room with abdominal pain and vomiting. Patient states this is a recurrent issue. She had an appointment to see gastroenterology but canceled it because she was going to have a surgery on her foot. She missed her presurgical clearance appointment and had to cancel the surgery and is now waiting to see gastroenterology again. She has a history of type 2 diabetes and takes insulin. She sees [facility] for primary care. She notes constipation for 5 days. She is having flatus. She states that since yesterday she has not been able to keep anything down. She denies abdominal distention. Describes the pain as unrelenting and generalized cramping. No reported fevers. Prior visits have suggested cannabis hyperemesis syndrome. [facility] Medical History Anxiety Asthma Constipation Depression Diabetes Diabetes mellitus with diabetic polyneuropathy Elevated serum creatinine Failure of outpatient treatment Hypertension Nausea and vomiting Neuropathy, diabetic Type 2 diabetes mellitus with foot ulcer Type 2 diabetes mellitus with peripheral neuropathy Home Medications albuterol sulfate 90 mcg/actuation aerosol inhaler (Ventolin HFA) 1 inh inhalation Q4H SOB 04/06/22 [History Last Taken 06/24/22] insulin glargine 100 unit/mL (3 mL) subcutaneous pen (Lantus Solostar U-100 Insulin) 15 unit subcut BID diabetes 08/12/22 [History Last Taken 06/25/23] hyoscyamine sulfate 0.125 mg sublingual tablet (Levsin/SL) 0.125 mg PO TID PRN abdominal pain #10 tabs 01/07/23 [Rx Last Taken Unknown] bisacodyl 10 mg rectal suppository (Dulcolax (bisacodyl)) 10 mg ID DAILY 3 days #12 ea 01/15/23 [Rx Last Taken Unknown] acetaminophen 325 mg tablet 650 mg (2 x 325 mg) PO Q6H PRN PRN Pain 1-10 Or Fever >100.7 #0 tabs 05/09/23 [Rx Last Taken Unknown] dicyclomine 20 mg tablet 20 mg PO TID PRN abdominal pain #30 tabs 05/09/23 [Rx Last Taken Unknown] levofloxacin 750 mg tablet 750 mg PO DAILY #12 tabs 05/09/23 [Rx Last Taken Unknown] metoclopramide HCl 5 mg tablet (Reglan) 5 mg PO Q6H PRN nausea and vomiting 3 days #20 tabs 05/09/23 [Rx Last Taken Unknown] ondansetron HCl 8 mg tablet 8 mg PO Q8H 5 days #15 tabs 05/09/23 [Rx Last Taken Unknown] promethazine 25 mg tablet 25 mg PO TID PRN nausea and vomiting #15 tabs 06/25/23 [Rx Last Taken Unknown] Allergy/AdvReac Type Severity Reaction Status Date / Time No Known Allergies Allergy Verified 06/25/23 09:35 Family History Other Bleeding disorder Cancer Diabetes Hypertension Surgical History Hx of foot surgery Social History Smoking Status: Current every day smoker tobacco type: cigarettes alcohol intake: never substance use type: does not use what type of physical activity do you participate in: none ROS ROS ED Constitutional Constitutional ED: Reports sweats; Denies chills, fever(s) or weight loss Eyes Eyes: Denies change in vision or diplopia ENT ENT ED: Denies ear pain, rhinorrhea or sore throat Cardiovascular Cardiovascular: Denies chest pain, orthopnea, palpitations or racing heartbeat Respiratory/Chest Respiratory/Chest: Denies cough, dyspnea or orthopnea Gastrointestinal Gastrointestinal: Reports abdominal pain, constipation, nausea and vomiting; Denies diarrhea Genitourinary Genitourinary ED: Denies dysuria, hematuria or urinary frequency Musculoskeletal Musculoskeletal: Denies arthralgias or myalgias Integumentary Denies abscess or rash Neurologic Neurologic: Denies headache(s) or weakness Psychiatric Psychiatric: Denies anxiety, depression, suicidal ideation or suicidal thoughts Endocrine Endocrinology: Denies polydipsia, polyphagia or polyuria Allergic/Immunologic Allergic/Immunologic ED: Denies mouth swelling, tongue swelling or urticaria EXAM Physical Exam Narrative Exam Narrative: Patient is hyperventilating pacing around the room. Const Vital Signs: 06/25/23 09:27 Temperature 96.5 F L Temperature Source Temporal Pulse Rate 100 Respiratory Rate 16 Blood Pressure 158/104 H Blood Pressure Mean 122 Pulse Ox 96 Oxygen Delivery Method Room Air Positive well nourished, well developed and obese General Appearance ED: well developed Nutritional Appearance: obese HEENT Reports normocephalic, head/scalp atraumatic and moist mucous membranes Eyes PERRL and EOMs intact bilaterally Neck no lymphadenopathy, supple and no JVD Resp normal respiratory effort and clear to auscultation bilaterally Cardio regular rate, regular rhythm and no murmurs Rate: tachycardic GI GI Narrative: Diffusely tender to palpation Inspection: Negative for abdominal distention Auscultation: normoactive bowel sounds Palpation: soft; Negative for guarding or rebound tenderness present Back/Spine no CVA tenderness and normal ROM Extremity normal to inspection General Extremety ED: Negative for edema General Extremity: Negative for edema Neuro oriented x3 and CN's II-XII intact bilaterally Sensorium / Orientation: alert Motor Exam: strength 5/5 throughout Psych mental status grossly normal Mood & Affect: Negative for depressed or tearful Skin no rashes or lesions noted and no wounds MDM MDM MDM Narrative Medical decision making narrative: Basic blood work shows a nonspecific leukocytosis 11.7. Normal hemoglobin at 12 and platelet count of 497 BMP showed a creatinine 0.83 BUN of 13. Normal anion gap at 10 and a CO2 of 24. Sodium potassium within normal limits. Lipase is normal. Alk phos 156. No obstructive pattern noted. Urinalysis shows no overt infection. No cannabis noted on urine toxicology. Patient received Ativan and Zofran Pepcid and a liter of fluids. She has been resting comfortably laying on her abdomen. No further vomiting. I will write for Phenergan. Would encourage her to follow up as previously directed History & Record Review Discussion w/independent historian: Patient Additional record(s) reviewed:: Prior ED visit and Prior labs Lab Data Attestation: I reviewed the patient's lab results. Labs: Laboratory Results - last 24 hr 06/25/23 06/25/23 09:51 10:01 WBC 11.7 H RBC 4.53 Hgb 12.0 Hct 38.2 MCV 84.3 MCH 26.5 L MCHC 31.4 L RDW Std Deviation 42.4 RDW Coeff of John 13.7 Plt Count 497 H MPV 9.1 Immature Gran % (Auto) 0.600 Neut % (Auto) 72.6 H Lymph % (Auto) 23.5 [place] % (Auto) 2.9 Eos % (Auto) 0.0 Baso % (Auto) 0.4 Absolute Neuts (auto) 8.5 H Absolute Lymphs (auto) 2.74 Nucleated RBC % 0 Sodium 137 Potassium 4.0 Chloride 103 Carbon Dioxide 24.0 Anion Gap 10 BUN 13 Creatinine 0.83 Estim Creat Clear Calc 91.94 Est GFR (MDRD) Af Amer 103 Est GFR (MDRD) Non-Af 85 BUN/Creatinine Ratio 15.7 Glucose 259 H Calcium 9.6 Total Bilirubin 0.40 AST 14 L ALT 15 Alkaline Phosphatase 156 H Total Protein 8.7 H Albumin 3.3 Globulin 5.4 H Albumin/Globulin Ratio 0.6 L Lipase 32 Urine Color Yellow Urine Clarity Sl. Cloudy Urine pH 7.0 Ur Specific [place] 1.010 Urine Protein 30 H Urine Glucose (UA) 250 H Urine Ketones 15 H Urine Occult Blood 250 H Urine Nitrite Negative Urine Bilirubin Negative Urine Urobilinogen Normal Ur Leukocyte Esterase 25 H Urine RBC > 100 SEEN Urine WBC 0-5 SEEN Ur Squamous Epith Cells 5-10 SEEN Urine Bacteria 0 SEEN Urine Mucus 0 SEEN Urine Opiates Screen NEGATIVE Urine Methadone Screen NEGATIVE Ur Barbiturates Screen NEGATIVE Ur Phencyclidine Scrn NEGATIVE Ur Amphetamines Screen NEGATIVE MDMA (Ecstasy) Screen POSITIVE H U Benzodiazepines Scrn NEGATIVE Urine Cocaine Screen NEGATIVE U Cannabinoids Screen NEGATIVE Ur Drug Screen Comment Discharge Plan Triage Chief Complaint: Nausea/Vomiting ED Provider: Tesfaye Mitchell Dx/Rx/DC Orders Clinical Impression: Type 2 diabetes mellitus, Abdominal pain, Vomiting Instructions: ED Vomiting (Adult) Prescriptions: New promethazine 25 mg tablet 25 mg PO TID PRN (Reason: nausea and vomiting) Qty: 15 0RF No Action albuterol sulfate [Ventolin HFA] 90 mcg/actuation HFA aerosol inhaler 1 inh INHALATION Q4H insulin glargine [Lantus Solostar U-100 Insulin] 100 unit/mL (3 mL) insulin pen 15 unit SUBCUT BID Patient Comments: inject 20 units subcutaneous twice daily bisacodyl [Dulcolax (bisacodyl)] 10 mg suppository 10 mg ID DAILY 3 Days Qty: 12 0RF Rx Instructions: Hold for diarrhea acetaminophen 325 mg Tablet 650 mg PO Q6H PRN PRN (Reason: Pain 1-10 Or Fever >100.7) Qty: 0 0RF ondansetron HCl 8 mg tablet 8 mg PO Q8H 5 Days Qty: 15 0RF Rx Instructions: 1st dose 1-2 hr before radiation metoclopramide HCl [Reglan] 5 mg tablet 5 mg PO Q6H PRN (Reason: nausea and vomiting) 3 Days Qty: 20 0RF dicyclomine 20 mg tablet 20 mg PO TID PRN (Reason: abdominal pain) Qty: 30 0RF levofloxacin 750 mg tablet 750 mg PO DAILY Qty: 12 0RF hyoscyamine sulfate [Levsin/SL] 0.125 mg tablet, sublingual 0.125 mg PO TID PRN (Reason: abdominal pain) Qty: 10 0RF Primary Care Provider: Sophy Chi Referrals: Amy Dasilva [employer] WRAPPING MACHINE TENDER, TOBAC[employer] WRAPPING MACHINE TENDER-C [Non-Staff -Ordering Privileges] - As soon as possible Disposition Disposition: Home, Self Care
[2023-06-25 10:00] LABS: Bacteria 0 SEEN /hpf (None Seen); Mucous, Urine 0 SEEN /hpf (<or=2+)
[2023-06-25] MEDS: 0.9% Normal Saline (1000mL) 1,000 ML 1000 ML IV (10:04)
[2023-06-25] MEDS: LORazepam 2 MG/ML Syringe 1 MG IV (10:05)
[2023-06-25] MEDS: Ondansetron 4 MG/2 ML Vial IV (10:05)
[2023-06-25 10:06] LABS: Color, Urine Yellow (Yellow); Glucose, Dipstick 250 mg/dl (Normal); Ketone-Dipstick 15 mg/dl (Negative); Leukocyte Esterase-Dipstick 25 /ul (Negative); Nitrite-Dipstick Negative (Negative); Occult Blood-Urine 250 /ul (Negative); Protein-Dipstick 30 mg/dl (Negative); Urine Bilirubin Dipstick Negative (Negative); Urine Clarity Sl. Cloudy (Clear); Urine Urobilinogen Normal (Normal)
[2023-06-25 10:20] LABS: Absolute Lymphocyte Count 2.74 X10^3/uL (0.83-4.51); Absolute Neutrophil Count 8.5 X10^3/uL (2.0-7.7); Basophil# 0.05 X10^3/uL; Basophil% 0.4 % (0-1); Hematocrit 38.2 % (37-47); Lymphocyte # 2.74 X10^3/ul (0.83-4.51); Lymphocyte % 23.5 % (19-41); Mean Corp Hgb Conc 31.4 g/dL (32-36); Mean Corpuscular Hgb 26.5 pg (27.0-32.0); Mean Corpuscular Volume 84.3 fL (81-99); Mean Platelet Vol. 9.1 fl (6.2-12.0); Monocyte# 0.34 X10^3/uL; Monocyte% 2.9 % (0-10); NRBC Flagged by Analyzer 0 % (0-5); Neutrophil # 8.45 X10^3/uL (2.7-7.7); Neutrophil % 72.6 % (47-70); Platelet Count 497 K/mm3 (150-450); RBC Distribution Width CV 13.7 % (11.6-14.6); RBC Distribution Width SD 42.4 fl (35.1-43.9); Red Blood Count 4.53 M/mm3 (4.2-5.4); White Blood Count 11.7 K/mm3 (4.4-11.0)
[2023-06-25 10:21] LABS: Red Blood Cells-Urine > 100 SEEN /hpf (0-5); Squamous Epithelial Cells - UA 5-10 SEEN /hpf (5-10)
[2023-06-25 10:22] LABS: White Blood Cells 0-5 SEEN /hpf (0-5)
[2023-06-25 10:25] LABS: Amphetamine Urine VISTA NEGATIVE (<1000 ng/mL); Barbiturate Urine VISTA NEGATIVE (< 200 ng/mL); Benzodiazepine Urine VISTA NEGATIVE (< 200 ng/mL); Cocaine Urine VISTA NEGATIVE (< 300 ng/mL); Ecstacy Urine VISTA POSITIVE (< 500 ng/mL); Methadone Urine VISTA NEGATIVE (< 300 ng/mL); PCP Urine VISTA NEGATIVE (< 25 ng/mL); THC Urine VISTA NEGATIVE (< 50 ng/mL); Vista UDS pH Range 7
[2023-06-25 10:28] LABS: ALB/GLOB Ratio 0.6 RATIO (0.9-2.4); AST(SGOT) 14 U/L (15-37); Alanine Aminotransfer ALT/SGPT 15 U/L (13-56); Albumin, Serum 3.3 g/dL (3.2-5.0); Alkaline Phosphatase 156 U/L (45-117); Anion Gap 10 (5-15); BUN 13 mg/dL (7-18); BUN/Creat Ratio 15.7 RATIO (10-20); Calcium,Total 9.6 mg/dL (8.5-10.1); Chloride 103 mmol/L (98-107); Creatinine, Serum 0.83 mg/dL (0.55-1.02); EST Glomerular Filtration Rate 85 mL/min (>60); Est Glom Filt Rate - Afr Amer 103 mL/min (>60); Estimated Creatinine Clearance 91.94 ml/min; Globulin 5.4 g/dL (2.2-4.2); Glucose 259 mg/dL (74-106); Lipase 32 U/L (13-75); Protein, Total 8.7 g/dL (6.4-8.2); Sodium Level 137 mmol/L (136-145)
[2023-06-25] MEDS: Famotidine 200 MG/20 ML MDV 20 MG in 0.9% Normal Saline (Pres. free 8 ML 300 MG IV (10:40)
[2023-06-25 12:33] VITALS: BP 124/69; PULSE 82; RESP 16; O2SAT 100
== END 2023-06-25 12:35 | disposition home or self-care (01) ==
PROVIDERS: Emergency Provider Emergency Medicine; Visit Provider Emergency Medicine
DX: R11.2 Nausea with vomiting, unspecified (principal); E11.40 Type 2 diabetes mellitus with diabetic neuropathy, unspecified; Z79.4 Long term (current) use of insulin; I10 Essential (primary) hypertension; J45.909 Unspecified asthma, uncomplicated; F17.210 Nicotine dependence, cigarettes, uncomplicated; E66.9 Obesity, unspecified; R10.9 Unspecified abdominal pain
CPT/HCPCS: 80053; 80307; 81001; 83690; 85025; 90471; 96361; 96374; 96375; 99283; J7030; J2405; J3490

== ENCOUNTER 2023-06-26 11:28 | Emergency (ER) | payer MEDICAID, SELFPAY ==
[2023-06-26 11:30] VITALS: BP 135/120; PULSE 95; RESP 20; TEMP 36.1; O2SAT 99; BMI 34.1
--- NOTE | 2023-06-26 12:01 | CT_ITS ---
STUDY: CT ABDOMEN AND PELVIS WITH CONTRAST - URINARY TRACT REASON FOR EXAM: Female, 33 years old. Diffuse pain, intractable vomiting RADIATION DOSAGE (If Supplied By Facility): CTDIvol = ( 18.14 ) mGy, DLP = ( 1141.16 ) mGycm TECHNIQUE: IV 100mL Isovue-370 was administered. Transaxial images were obtained from the dome of the diaphragm to the symphysis pubis subsequent to intravenous contrast administration. Multiplanar coronal and sagittal images were reformatted. Individualized Dose Optimization Techniques Were Used For This CT. COMPARISON: March 06, 2023 FINDINGS: The visualized lung bases are unremarkable. There are some stable tree-in-bud opacities within the lower lobes Normal liver. Normal gallbladder and extrahepatic biliary system. There is stable borderline splenomegaly. Normal pancreas. Normal bilateral adrenal glands. Normal visualized stomach. Normal small intestine. Normal colon. The appendix is visualized and appears normal. Normal abdominal aorta. No retroperitoneal adenopathy. Normal right kidney. There is a stable too small to characterize low-attenuation focus within the left kidney. Normal urinary bladder. Normal abdominal wall. Normal osseous structures. CT/Abdomen/Pelvis W IV Cont ONLY IMPRESSION: No acute intra-abdominal process. Electronically Signed: Ellen Kevin MD at 13:36 EST ,
--- NOTE | 2023-06-26 12:03 | ED.VIS.GI ---
HPI HPI - GI History of Present Illness Chief Complaint: Abd Pain Informant: patient Abdominal Pain/Flank Pain Onset: Days (Several) Context: Gradual Onset Timing: Continuous Quality: Aching Location: Diffuse Current Severity: Severe Maximum Severity: Severe Worsened by: Nothing Relieved by: Nothing Nausea/Vomiting/Emesis GI Symptom: Positive for Nausea and Vomiting Onset: Days (Several) Quality: Positive for Nonbilious and Blood streaks; Negative for Coffee ground Severity: Severe Diarrhea/Melena/Hematochezia GI Symptom: Negative for Diarrhea, Melena or Hematochezia Associated Symptoms Associated Symptoms: Negative for Dysuria, Frequency, Hematuria or Urgency Narrative Narrative: Patient presents 24 hours after her last visit here for the same thing, diffuse abdominal pain and intractable vomiting. Now, with bits of blood. She states I hope I do not have to deal with this for months like I did last time. Was trying to get in to see gastroenterology, but has not been seen yet. She states the pain started everywhere and continues to be everywhere. She was doing better apparently at discharge from the ER yesterday but states since being at home she has continued to vomit and have severe pain despite the prescription for oral promethazine, which she admits she did not attempt to obtain from the pharmacy. She denies any other new symptoms. [facility] Medical History Anxiety Asthma Constipation Depression Diabetes Diabetes mellitus with diabetic polyneuropathy Elevated serum creatinine Failure of outpatient treatment Hypertension Nausea and vomiting Neuropathy, diabetic Type 2 diabetes mellitus with foot ulcer Type 2 diabetes mellitus with peripheral neuropathy Home Medications albuterol sulfate 90 mcg/actuation aerosol inhaler (Ventolin HFA) 1 inh inhalation Q4H SOB 04/06/22 [History Last Taken 06/24/22] insulin glargine 100 unit/mL (3 mL) subcutaneous pen (Lantus Solostar U-100 Insulin) 15 unit subcut BID diabetes 08/12/22 [History Last Taken 06/25/23] hyoscyamine sulfate 0.125 mg sublingual tablet (Levsin/SL) 0.125 mg PO TID PRN abdominal pain #10 tabs 01/07/23 [Rx Last Taken Unknown] bisacodyl 10 mg rectal suppository (Dulcolax (bisacodyl)) 10 mg [place] DAILY 3 days #12 ea 01/15/23 [Rx Last Taken Unknown] acetaminophen 325 mg tablet 650 mg (2 x 325 mg) PO Q6H PRN PRN Pain 1-10 Or Fever >100.7 #0 tabs 05/09/23 [Rx Last Taken Unknown] dicyclomine 20 mg tablet 20 mg PO TID PRN abdominal pain #30 tabs 05/09/23 [Rx Last Taken Unknown] levofloxacin 750 mg tablet 750 mg PO DAILY #12 tabs 05/09/23 [Rx Last Taken Unknown] metoclopramide HCl 5 mg tablet (Reglan) 5 mg PO Q6H PRN nausea and vomiting 3 days #20 tabs 05/09/23 [Rx Last Taken Unknown] ondansetron HCl 8 mg tablet 8 mg PO Q8H 5 days #15 tabs 05/09/23 [Rx Last Taken Unknown] promethazine 25 mg tablet 25 mg PO TID PRN nausea and vomiting #15 tabs 06/25/23 [Rx Last Taken Unknown] Allergy/AdvReac Type Severity Reaction Status Date / Time No Known Allergies Allergy Verified 06/26/23 11:33 Family History Other Bleeding disorder Cancer Diabetes Hypertension Surgical History Hx of foot surgery Social History Smoking Status: Current every day smoker tobacco type: cigarettes alcohol intake: never substance use type: does not use what type of physical activity do you participate in: none ROS ROS ED Constitutional Constitutional ED: Denies chills or fever(s) Eyes Eyes: Denies change in vision or diplopia ENT ENT ED: Denies rhinorrhea or sore throat Cardiovascular Cardiovascular: Denies chest pain or palpitations Respiratory/Chest Respiratory/Chest: Denies cough or dyspnea Gastrointestinal Gastrointestinal: Reports abdominal pain, constipation, hematemesis, nausea and vomiting; Denies diarrhea or hematochezia Genitourinary Genitourinary ED: Denies dysuria or hematuria Musculoskeletal Musculoskeletal: Denies back pain or neck pain Integumentary Denies abscess or rash Neurologic Neurologic: Denies headache(s), paresthesias or weakness Psychiatric Psychiatric: Reports anxiety; Denies suicidal thoughts EXAM Physical Exam Const Vital Signs: 06/26/23 11:30 06/26/23 15:48 Temperature 97 F L Temperature Source Temporal Pulse Rate 95 Respiratory Rate 20 H 18 Blood Pressure 135/120 H Blood Pressure Mean 125 Pulse Ox 99 Oxygen Delivery Method Room Air Room Air Positive well nourished, well developed and obese General Appearance ED: well developed and NAD Nutritional Appearance: obese HEENT Reports moist mucous membranes normocephalic and atraumatic Eyes PERRL and EOMs intact bilaterally Neck full ROM and supple Resp normal respiratory effort and clear to auscultation bilaterally Cardio regular rate, regular rhythm and no murmurs GI non-distended GI Narrative: Diffuse tenderness and voluntary guarding no rebound tenderness Auscultation: hypoactive bowel sounds Palpation: soft Back/Spine no CVA tenderness General Back: other FROM Extremity normal to inspection General Extremety ED: Negative for edema, pulses abnormal or tenderness General Extremity: Negative for edema or pulses abnormal Neuro oriented x3, CN's II-XII intact bilaterally and no sensory deficits noted Sensorium / Orientation: awake and alert Motor Exam: strength 5/5 throughout Psych Attitude: agitated Mood & Affect: anxious Skin no rashes or lesions noted and no wounds MDM MDM MDM Narrative Medical decision making narrative: I did review the patient's ER visit from yesterday. I repeated some of his labs which look good, there is no leukocytosis, and obtained a CT which is completely normal I reviewed the images and the interpretation which I agree with. Despite giving the patient Zofran and morphine for her pain, she was still rolling around nauseated and very agitated. It is thought that Thorazine may help all of this including the nausea so she was given that next, in addition to alternative analgesics since morphine did not appear to help. I discussed with the patient that her workup is negative, but that does not mean that nothing is wrong and she may have some type of functional GI disorder, it is also possible this could be psychogenic or cyclic vomiting syndrome although I am not able to rule any of this in or out here in the emergency department. In looking at old records it seems that she has had this while in the hospital before, had a gastric emptying study that was unremarkable. Yesterday urine drug screen was obtained and was negative for cannabis (although positive for MDMA), given her history of use and other physicians that have discussed cannabis hyperemesis syndrome being in the differential diagnosis for her at prior encounters, so that does not need to be repeated at this time. Before getting the Thorazine, she was still continuing to vomit profusely, although most of it was dry heaving. After the Thorazine infusion was completed she was reevaluated, she is sleeping and difficult to arouse. Therefore at this time she will continue to be observed until she is alert enough to perform a p.o. challenge and to reevaluate. Checked out to the oncoming ED physician at shift change for reevaluation. History & Record Review Additional record(s) reviewed:: Prior inpatient record and Prior ED visit Lab Data Attestation: I reviewed the patient's lab results. Labs: Laboratory Results - last 24 hr 06/26/23 12:15 WBC 8.6 RBC 4.31 Hgb 11.6 L Hct 36.5 L MCV 84.7 MCH 26.9 L MCHC 31.8 L RDW Std Deviation 42.7 RDW Coeff of John 13.7 Plt Count 464 H MPV 9.3 Immature Gran % (Auto) 0.700 Neut % (Auto) 63.6 Lymph % (Auto) 30.6 [place] % (Auto) 4.3 Eos % (Auto) 0.2 Baso % (Auto) 0.6 Absolute Neuts (auto) 5.5 Absolute Lymphs (auto) 2.63 Nucleated RBC % 0 Sodium 136 Potassium 3.8 Chloride 102 Carbon Dioxide 26.0 Anion Gap 8 BUN 10 Creatinine 0.88 Estim Creat Clear Calc 86.71 Est GFR (MDRD) Af Amer 97 Est GFR (MDRD) Non-Af 80 BUN/Creatinine Ratio 11.4 Glucose 228 H Calcium 9.5 Total Bilirubin 0.30 AST 8 L ALT 15 Alkaline Phosphatase 135 H Total Protein 8.4 H Albumin 3.4 Globulin 5.0 H Albumin/Globulin Ratio 0.7 L Radiography Diagnostic Testing: Clinical Impression(s) from Imaging Studies Abdomen/Pelvis CT 06/26/23 12:01 IMPRESSION: No acute intra-abdominal process. Electronically Signed: Ellen Kevin MD at 13:36 EST , Discharge Plan Triage Chief Complaint: Abd Pain ED Provider: Taiwo Chen Dx/Rx/DC Orders Clinical Impression: Diffuse abdominal pain, Intractable nausea and vomiting Instructions: ED Vomiting (Adult) Prescriptions: No Action albuterol sulfate [Ventolin HFA] 90 mcg/actuation HFA aerosol inhaler 1 inh INHALATION Q4H insulin glargine [Lantus Solostar U-100 Insulin] 100 unit/mL (3 mL) insulin pen 15 unit SUBCUT BID Patient Comments: inject 20 units subcutaneous twice daily bisacodyl [Dulcolax (bisacodyl)] 10 mg suppository 10 mg [place] DAILY 3 Days Qty: 12 0RF Rx Instructions: Hold for diarrhea acetaminophen 325 mg Tablet 650 mg PO Q6H PRN PRN (Reason: Pain 1-10 Or Fever >100.7) Qty: 0 0RF ondansetron HCl 8 mg tablet 8 mg PO Q8H 5 Days Qty: 15 0RF Rx Instructions: 1st dose 1-2 hr before radiation metoclopramide HCl [Reglan] 5 mg tablet 5 mg PO Q6H PRN (Reason: nausea and vomiting) 3 Days Qty: 20 0RF dicyclomine 20 mg tablet 20 mg PO TID PRN (Reason: abdominal pain) Qty: 30 0RF levofloxacin 750 mg tablet 750 mg PO DAILY Qty: 12 0RF hyoscyamine sulfate [Levsin/SL] 0.125 mg tablet, sublingual 0.125 mg PO TID PRN (Reason: abdominal pain) Qty: 10 0RF promethazine 25 mg tablet 25 mg PO TID PRN (Reason: nausea and vomiting) Qty: 15 0RF Primary Care Provider: Sophy Chi Referrals: Sophy Chi [Primary Care Provider] -
[2023-06-26] MEDS: 0.9% Normal Saline (1000mL) 1,000 ML 1000 ML IV (12:14)
[2023-06-26] MEDS: Ondansetron 4 MG/2 ML Vial IV (12:15)
[2023-06-26] MEDS: Morphine 4 MG/ML Syringe IV (12:15)
[2023-06-26 12:42] LABS: Absolute Lymphocyte Count 2.63 X10^3/uL (0.83-4.51); Absolute Neutrophil Count 5.5 X10^3/uL (2.0-7.7); Basophil# 0.05 X10^3/uL; Basophil% 0.6 % (0-1); Eosinophil# 0.02 X10^3/uL; Eosinophils% 0.2 % (0-5); Hematocrit 36.5 % (37-47); Hemoglobin 11.6 g/dL (12.0-15.0); Lymphocyte # 2.63 X10^3/ul (0.83-4.51); Lymphocyte % 30.6 % (19-41); Mean Corp Hgb Conc 31.8 g/dL (32-36); Mean Corpuscular Hgb 26.9 pg (27.0-32.0); Mean Corpuscular Volume 84.7 fL (81-99); Mean Platelet Vol. 9.3 fl (6.2-12.0); Monocyte# 0.37 X10^3/uL; Monocyte% 4.3 % (0-10); NRBC Flagged by Analyzer 0 % (0-5); Neutrophil # 5.47 X10^3/uL (2.7-7.7); Neutrophil % 63.6 % (47-70); Platelet Count 464 K/mm3 (150-450); RBC Distribution Width CV 13.7 % (11.6-14.6); RBC Distribution Width SD 42.7 fl (35.1-43.9); Red Blood Count 4.31 M/mm3 (4.2-5.4); White Blood Count 8.6 K/mm3 (4.4-11.0)
[2023-06-26 12:45] LABS: ALB/GLOB Ratio 0.7 RATIO (0.9-2.4); AST(SGOT) 8 U/L (15-37); Alanine Aminotransfer ALT/SGPT 15 U/L (13-56); Albumin, Serum 3.4 g/dL (3.2-5.0); Alkaline Phosphatase 135 U/L (45-117); Anion Gap 8 (5-15); BUN 10 mg/dL (7-18); BUN/Creat Ratio 11.4 RATIO (10-20); Calcium,Total 9.5 mg/dL (8.5-10.1); Chloride 102 mmol/L (98-107); Creatinine, Serum 0.88 mg/dL (0.55-1.02); EST Glomerular Filtration Rate 80 mL/min (>60); Est Glom Filt Rate - Afr Amer 97 mL/min (>60); Estimated Creatinine Clearance 86.71 ml/min; Glucose 228 mg/dL (74-106); Potassium 3.8 mmol/L (3.5-5.1); Protein, Total 8.4 g/dL (6.4-8.2); Sodium Level 136 mmol/L (136-145)
[2023-06-26] MEDS: Pantoprazole Sodium 40 MG in 0.9% Normal Saline (100mL MB+) 100 ML 330 MG IV (13:00)
[2023-06-26] MEDS: Dicyclomine 20 MG/2 ML Vial IM (14:09)
[2023-06-26] MEDS: Ketorolac 30 MG/ML Syringe IV (14:09)
[2023-06-26] MEDS: NORMAL SALINE 0.9% IV (15:25)
[2023-06-26] MEDS: CHLORPROMAZINE IV (15:25)
[2023-06-26 15:48] VITALS: RESP 18
[2023-06-26 17:04] VITALS: PULSE 74; RESP 18; O2SAT 97
== END 2023-06-26 18:46 | disposition home or self-care (01) ==
PROVIDERS: Emergency Medicine; Emergency Provider Student in an Organized Health Care Education/Training Program; Visit Provider Student in an Organized Health Care Education/Training Program
DX: R10.84 Generalized abdominal pain (principal); E11.42 Type 2 diabetes mellitus with diabetic polyneuropathy; R11.2 Nausea with vomiting, unspecified; I10 Essential (primary) hypertension; F17.210 Nicotine dependence, cigarettes, uncomplicated; F41.9 Anxiety disorder, unspecified; E66.9 Obesity, unspecified
CPT/HCPCS: 74177; 80053; 85025; 96361; 96365; 96367; 96372; 96375; 99285; J7030; Q9967; A4216; J2405; J3490

== ENCOUNTER 2023-06-27 05:48 | Emergency (ER) | payer MEDICAID, SELFPAY ==
[2023-06-27 05:50] VITALS: BP 163/98; PULSE 85; RESP 16; TEMP 37; O2SAT 99; BMI 34.0
--- NOTE | 2023-06-27 06:41 | ED.RN ---
While in room, staff observed pt sticking fingers down her throat. Physician alerted staff that she has history of gulping large amounts of water and making self vomit. Curtain opened to monitor pt for same. Pt continuously looking up at staff and attempting to stick fingers down throat without staff seeing. While waiting for orders to be entered, pt ambulated out of department on her own without difficulty.
--- NOTE | 2023-06-27 06:42 | EDS_ITS ---
HPI History of Present Illness Chief Complaint: Nausea/Vomiting Informant: patient and EMS Narrative Narrative: 33-year-old female arriving to the emergency department by EMS for with her third ED visit in 3 days. Patient was seen by this physician on Wednesday and again yesterday and now this morning. Patient has a history of what sounds like cyclic vomiting. On Wednesday she had blood work and received medications which improved her symptoms while here. She states that she was unable to get her Phenergan from the pharmacy and returned here yesterday. Yesterday she had a repeat of her white count which was normal and a CT of the pelvis which was normal. Patient again received medications and her symptoms improved and she was discharged home. She states that since arriving at home her symptoms are back. She states that she cannot keep going on with the pain in her abdomen and the vomiting. She has not developed any fever. The pain is unchanged and she describes it as generalized. The prior to ED visits were reviewed. [facility] Medical History Anxiety Asthma Constipation Depression Diabetes Diabetes mellitus with diabetic polyneuropathy Elevated serum creatinine Failure of outpatient treatment Hypertension Nausea and vomiting Neuropathy, diabetic Type 2 diabetes mellitus with foot ulcer Type 2 diabetes mellitus with peripheral neuropathy Home Medications insulin glargine 100 unit/mL (3 mL) subcutaneous pen (Lantus Solostar U-100 Insulin) 15 unit subcut BID diabetes 08/12/22 [History Last Taken 06/25/23] promethazine 25 mg tablet 25 mg PO TID PRN nausea and vomiting #15 tabs 06/25/23 [Rx Last Taken Unknown] Allergy/AdvReac Type Severity Reaction Status Date / Time No Known Allergies Allergy Verified 06/27/23 05:51 Family History Other Bleeding disorder Cancer Diabetes Hypertension Surgical History Hx of foot surgery Social History Smoking Status: Current every day smoker tobacco type: cigarettes alcohol intake: never substance use type: does not use what type of physical activity do you participate in: none ROS ROS ED Constitutional Constitutional ED: Denies chills, fever(s) or weight loss Eyes Eyes: Denies change in vision or diplopia ENT ENT ED: Denies ear pain, rhinorrhea or sore throat Cardiovascular Cardiovascular: Denies chest pain, orthopnea, palpitations or racing heartbeat Respiratory/Chest Respiratory/Chest: Denies cough, dyspnea or orthopnea Gastrointestinal Gastrointestinal: Reports abdominal pain, nausea and vomiting; Denies diarrhea Genitourinary Genitourinary ED: Denies dysuria, hematuria or urinary frequency Musculoskeletal Musculoskeletal: Denies arthralgias or myalgias Integumentary Denies abscess or rash Neurologic Neurologic: Denies headache(s) or weakness Psychiatric Psychiatric: Denies anxiety, depression, suicidal ideation or suicidal thoughts Endocrine Endocrinology: Denies polydipsia, polyphagia or polyuria Allergic/Immunologic Allergic/Immunologic ED: Denies mouth swelling, tongue swelling or urticaria EXAM Physical Exam Const Vital Signs: 06/27/23 05:50 Temperature 98.6 F Temperature Source Oral Pulse Rate 85 Respiratory Rate 16 Blood Pressure 163/98 H Blood Pressure Mean 119 Pulse Ox 99 Positive well nourished, well developed and obese General Appearance ED: well developed Nutritional Appearance: obese HEENT Reports normocephalic, head/scalp atraumatic and moist mucous membranes Eyes PERRL and EOMs intact bilaterally Neck no lymphadenopathy, supple and no JVD Resp normal respiratory effort and clear to auscultation bilaterally Cardio regular rate, regular rhythm and no murmurs GI normal to inspection, nondistended, normoactive bowel sounds and non-tender Palpation: soft Back/Spine no CVA tenderness and normal ROM Extremity normal to inspection General Extremety ED: Negative for edema General Extremity: Negative for edema Neuro oriented x3 and CN's II-XII intact bilaterally Sensorium / Orientation: alert Motor Exam: strength 5/5 throughout Psych mental status grossly normal Mood & Affect: Negative for depressed or tearful Skin no rashes or lesions noted and no wounds MDM MDM MDM Narrative Medical decision making narrative: I personally observed the patient with her finger in her throat attempting to make herself vomit. She states that she was doing this in an effort to help relieve the nausea. We were going to repeat her BMP and white count. I ordered fluids Ativan and Zofran which seemed to help her on Wednesday. Patient has decided that she does not wish to be here in the emergency department. She subsequently eloped. Discharge Plan Triage Chief Complaint: Nausea/Vomiting ED Provider: Tesfaye Mitchell Dx/Rx/DC Orders Clinical Impression: Abdominal pain, Vomiting Prescriptions: No Action insulin glargine [Lantus Solostar U-100 Insulin] 100 unit/mL (3 mL) insulin pen 15 unit SUBCUT BID Patient Comments: inject 20 units subcutaneous twice daily promethazine 25 mg tablet 25 mg PO TID PRN (Reason: nausea and vomiting) Qty: 15 0RF Primary Care Provider: Sophy Chi Referrals: Sophy Chi [Primary Care Provider] - Disposition Disposition: Elopement
== END 2023-06-27 06:53 | disposition left against medical advice (07) ==
LOC: ED 06:49
PROVIDERS: Emergency Provider Emergency Medicine; Visit Provider Emergency Medicine
DX: R11.2 Nausea with vomiting, unspecified (principal); E11.42 Type 2 diabetes mellitus with diabetic polyneuropathy; Z79.4 Long term (current) use of insulin; I10 Essential (primary) hypertension; F17.210 Nicotine dependence, cigarettes, uncomplicated; R10.9 Unspecified abdominal pain
CPT/HCPCS: 99282

== ENCOUNTER 2023-06-28 09:15 | Emergency (ER) | payer MEDICAID, SELFPAY ==
[2023-06-28 09:17] VITALS: BP 154/105; PULSE 82; RESP 14; TEMP 36.8; O2SAT 99; BMI 33.6
[2023-06-28 09:49] LABS: Absolute Lymphocyte Count 2.31 X10^3/uL (0.83-4.51); Absolute Neutrophil Count 6.4 X10^3/uL (2.0-7.7); Basophil# 0.05 X10^3/uL; Basophil% 0.5 % (0-1); Eosinophil# 0.01 X10^3/uL; Eosinophils% 0.1 % (0-5); Hematocrit 40.6 % (37-47); Lymphocyte # 2.31 X10^3/ul (0.83-4.51); Lymphocyte % 25.1 % (19-41); Mean Corpuscular Hgb 26.8 pg (27.0-32.0); Mean Corpuscular Volume 83.7 fL (81-99); Mean Platelet Vol. 8.9 fl (6.2-12.0); Monocyte# 0.44 X10^3/uL; Monocyte% 4.8 % (0-10); NRBC Flagged by Analyzer 0 % (0-5); Neutrophil # 6.35 X10^3/uL (2.7-7.7); Neutrophil % 69.1 % (47-70); Platelet Count 491 K/mm3 (150-450); RBC Distribution Width CV 13.6 % (11.6-14.6); RBC Distribution Width SD 41.7 fl (35.1-43.9); Red Blood Count 4.85 M/mm3 (4.2-5.4); White Blood Count 9.2 K/mm3 (4.4-11.0)
--- NOTE | 2023-06-28 09:52 | EDS_ITS ---
HPI HPI - GI History of Present Illness Chief Complaint: Abd Pain Nausea/Vomiting/Emesis GI Symptom: Positive for Nausea and Vomiting Onset: Days (5) Narrative Narrative: 33-year-old female presents with nausea and vomiting that she has had for the last 5 days. She has past medical history of diabetes, but states that she has been checking her sugars because she is unable to function. She has been seen in the emergency department a few times over the last few days. She denies any fevers or chills, but states that she had multiple episodes of nonbloody emesis with diffuse abdominal cramping. No exacerbating or alleviating factors. PFSH PFS Medical History Anxiety Asthma Constipation Depression Diabetes Diabetes mellitus with diabetic polyneuropathy Elevated serum creatinine Failure of outpatient treatment Hypertension Nausea and vomiting Neuropathy, diabetic Type 2 diabetes mellitus with foot ulcer Type 2 diabetes mellitus with peripheral neuropathy Home Medications insulin glargine 100 unit/mL (3 mL) subcutaneous pen (Lantus Solostar U-100 Insulin) 15 unit subcut BID diabetes 08/12/22 [History Last Taken 06/25/23] promethazine 25 mg tablet 25 mg PO TID PRN nausea and vomiting #15 tabs 06/25/23 [Rx Last Taken Unknown] metoclopramide HCl 10 mg tablet (Reglan) 10 mg PO Q6H PRN nausea and vomiting #15 tabs 06/28/23 [Rx Last Taken Unknown] Allergy/AdvReac Type Severity Reaction Status Date / Time No Known Allergies Allergy Verified 06/28/23 09:16 Family History Other Bleeding disorder Cancer Diabetes Hypertension Surgical History Hx of foot surgery Social History Smoking Status: Current every day smoker tobacco type: cigarettes alcohol intake: never substance use type: does not use what type of physical activity do you participate in: none ROS ROS ED ROS Narrative Constitutional: No fever, no chills. HEENT: No sore throat. No neck pain. No loss of vision. No rhinorrhea. Cardiovascular: No chest pain. No palpitations. No pedal edema. Respiratory: No cough, no shortness of breath. Abdominal: Fuhs, crampy abdominal pain. Positive nausea and vomiting. Genitourinary: No dysuria. No hematuria. Musculoskeletal: No myalgias. No arthralgias. Neurologic: No headaches. No dizziness. No lightheadedness. Skin: No rash. No change in color. Psychiatric: No depression. No anxiety. EXAM Physical Exam Narrative Exam Narrative: Afebrile. Vital signs noted. HEENT: Normocephalic. Atraumatic. PERRL, EOMI. Neck soft and supple. No point tenderness or step off. Cardiovascular: Regular rate and rhythm. No murmurs, rubs, or gallops appreciated. Respiratory: No tachypnea. Lungs clear to auscultation bilaterally. Gastrointestinal: Abdomen soft, nontender, with normoactive bowel sounds. No rebound or guarding. Neurological: Awake. Alert. Nonfocal, nonlateralizing. Skin: No rash. Normal color. No pallor. Musculoskeletal: No pedal edema. Full range of motion extremities. Nikolas: Tearful on examination. Const Vital Signs: 06/28/23 09:17 Temperature 98.2 F Temperature Source Temporal Pulse Rate 82 Respiratory Rate 14 Blood Pressure 154/105 H Blood Pressure Mean 121 Pulse Ox 99 Oxygen Delivery Method Room Air MDM MDM MDM Narrative Medical decision making narrative: The patient's prior records. It is reported that she has had problems with cyclic vomiting and cannabis abuse in the past. Given her history of diabetes, concern would be for diabetic ketoacidosis as she states he takes insulin, versus gastroenteritis versus cyclic vomiting syndrome. I reviewed her prior records. Yesterday, she was seen in the emergency department but eloped. When asked about this, she had stated that she just wanted to leave yesterday. She states that while she is followed up in the [facility] clinic, they can never find anything acute with her abdominal pain and vomiting. Additionally, she has had CT imaging recently. Check her laboratory work today and give her symptomatic treatment for cyclic vomiting. Yesterday, she was going to receive Ativan which has helped her in the past, but she eloped prior to this. I did order Ativan 0.5 mg along with Pepcid and Zofran as the initial part of the cyclic vomiting protocol. She will be bolused normal saline 1 L intravenously. Her laboratory work from today and she has a normal white count of 9.2, hemoglobin 13.0, hematocrit 40.6, platelet count slightly elevated at 491 which may be more of an acute phase reactant. Her potassium is low at 3.2, she was given 20 mill equivalents orally which she reportedly tolerated. Glucose is elevated at 221 but she has a normal anion gap of 9. I have low suspicion for diabetic ketoacidosis. BUN is normal at 11 with creatinine 0.94. Lipase is normal, AST slightly low at 11 with ALT 13. Analysis is negative for infection and is a contaminated specimen anyway with 5-10 squamous epithelial cells. She did have ketones in her urine indicative more of dehydration, I do not feel serum acetone is needed as she has a normal anion gap. Upon repeat examination, she states she is feeling improved and is laying on her stomach. I discussed with her antiemetics for her at home, she states Zofran usually does not work. She states that she think she has been on Reglan previously. I wrote her a prescription for Reglan. She was also given an IM shot of Bentyl prior to discharge. At this point in time, I feel she can be discharged safely home with follow-up. She will start a clear liquid diet and advance as tolerated. Return instructions to the emergency department were reviewed. Disposition is discharged home in stable condition. History & Record Review Discussion w/independent historian: Patient Additional record(s) reviewed:: Prior ED visit and Prior labs Lab Data Attestation: I reviewed the patient's lab results. Labs: Laboratory Results - last 24 hr 06/28/23 06/28/23 09:35 09:52 WBC 9.2 RBC 4.85 Hgb 13.0 Hct 40.6 MCV 83.7 MCH 26.8 L MCHC 32.0 RDW Std Deviation 41.7 RDW Coeff of John 13.6 Plt Count 491 H MPV 8.9 Immature Gran % (Auto) 0.400 Neut % (Auto) 69.1 Lymph % (Auto) 25.1 [place] % (Auto) 4.8 Eos % (Auto) 0.1 Baso % (Auto) 0.5 Absolute Neuts (auto) 6.4 Absolute Lymphs (auto) 2.31 Nucleated RBC % 0 Sodium 136 Potassium 3.2 L Chloride 102 Carbon Dioxide 25.0 Anion Gap 9 BUN 11 Creatinine 0.94 Estim Creat Clear Calc 81.18 Est GFR (MDRD) Af Amer 89 Est GFR (MDRD) Non-Af 74 BUN/Creatinine Ratio 11.7 Glucose 221 H Calcium 9.6 Total Bilirubin 0.60 AST 11 L ALT 13 Alkaline Phosphatase 128 H Total Protein 9.3 H Albumin 3.9 Globulin 5.4 H Albumin/Globulin Ratio 0.7 L Lipase 28 Urine Color Yellow Urine Clarity Cloudy Urine pH 6.0 Ur Specific [place] 1.020 Urine Protein 30 H Urine Glucose (UA) 50 H Urine Ketones 50 H Urine Occult Blood 25 H Urine Nitrite Negative Urine Bilirubin 1 H Urine Urobilinogen 1 H Ur Leukocyte Esterase 25 H Urine RBC 0-5 SEEN Urine WBC 0-5 SEEN Ur Squamous Epith Cells 5-10 SEEN Urine Bacteria 2+ Urine Mucus 1+ Discharge Plan Triage Chief Complaint: Abd Pain ED Provider: Drew Hinson Dx/Rx/DC Orders Clinical Impression: Nausea and vomiting, Abdominal pain Instructions: ED Abdominal Pain Unkn Cause Fem, ED Vomiting (Adult) Prescriptions: New metoclopramide HCl [Reglan] 10 mg tablet 10 mg PO Q6H PRN (Reason: nausea and vomiting) Qty: 15 0RF No Action insulin glargine [Lantus Solostar U-100 Insulin] 100 unit/mL (3 mL) insulin pen 15 unit SUBCUT BID Patient Comments: inject 20 units subcutaneous twice daily promethazine 25 mg tablet 25 mg PO TID PRN (Reason: nausea and vomiting) Qty: 15 0RF Primary Care Provider: Sophy Chi Referrals: Sophy Chi [Primary Care Provider] - 3-5 Days if not improving Disposition Disposition: Home, Self Care Discharge Date/Time: 06/28/23 10:54
[2023-06-28] MEDS: Ondansetron 4 MG/2 ML Vial IV (09:56)
[2023-06-28] MEDS: 0.9% Normal Saline (1000mL) 1,000 ML 1000 ML IV (09:56)
[2023-06-28] MEDS: LORazepam 2 MG/ML Syringe 0.5 MG IV (09:56)
[2023-06-28 10:02] LABS: Color, Urine Yellow (Yellow); Glucose, Dipstick 50 mg/dl (Normal); Ketone-Dipstick 50 mg/dl (Negative); Leukocyte Esterase-Dipstick 25 /ul (Negative); Nitrite-Dipstick Negative (Negative); Occult Blood-Urine 25 /ul (Negative); Protein-Dipstick 30 mg/dl (Negative); Urine Clarity Cloudy (Clear); Urine Urobilinogen 1 mg/dl (Normal)
[2023-06-28 10:08] LABS: Bacteria 2+ /hpf (None Seen); Mucous, Urine 1+ /hpf (<or=2+); Red Blood Cells-Urine 0-5 SEEN /hpf (0-5); Squamous Epithelial Cells - UA 5-10 SEEN /hpf (5-10); Urine Bilirubin Dipstick 1 mg/dL (Negative); White Blood Cells 0-5 SEEN /hpf (0-5)
[2023-06-28 10:12] LABS: ALB/GLOB Ratio 0.7 RATIO (0.9-2.4); AST(SGOT) 11 U/L (15-37); Alanine Aminotransfer ALT/SGPT 13 U/L (13-56); Albumin, Serum 3.9 g/dL (3.2-5.0); Alkaline Phosphatase 128 U/L (45-117); Anion Gap 9 (5-15); BUN 11 mg/dL (7-18); BUN/Creat Ratio 11.7 RATIO (10-20); Calcium,Total 9.6 mg/dL (8.5-10.1); Chloride 102 mmol/L (98-107); Creatinine, Serum 0.94 mg/dL (0.55-1.02); EST Glomerular Filtration Rate 74 mL/min (>60); Est Glom Filt Rate - Afr Amer 89 mL/min (>60); Estimated Creatinine Clearance 81.18 ml/min; Globulin 5.4 g/dL (2.2-4.2); Glucose 221 mg/dL (74-106); Lipase 28 U/L (13-75); Potassium 3.2 mmol/L (3.5-5.1); Protein, Total 9.3 g/dL (6.4-8.2); Sodium Level 136 mmol/L (136-145)
[2023-06-28] MEDS: Famotidine 200 MG/20 ML MDV 20 MG in 0.9% Normal Saline (Pres. free 8 ML 300 MG IV (10:19)
== END 2023-06-28 10:54 | disposition home or self-care (01) ==
PROVIDERS: Emergency Provider Emergency Medicine; Visit Provider Emergency Medicine
DX: R11.2 Nausea with vomiting, unspecified (principal); E11.42 Type 2 diabetes mellitus with diabetic polyneuropathy; Z79.4 Long term (current) use of insulin; I10 Essential (primary) hypertension; E86.0 Dehydration; F17.210 Nicotine dependence, cigarettes, uncomplicated; E87.6 Hypokalemia; R10.9 Unspecified abdominal pain
CPT/HCPCS: 80053; 81001; 83690; 85025; 96365; 96375; 99283; J7030; A4216; J2405; J3490

== ENCOUNTER 2023-06-30 08:21 | Emergency (ER) | payer MEDICAID, SELFPAY ==
[2023-06-30 08:22] VITALS: BP 170/110; PULSE 98; RESP 14; TEMP 36.6; O2SAT 100
[2023-06-30 09:24] VITALS: BMI 34.0
--- NOTE | 2023-06-30 09:31 | EDS_ITS ---
HPI HPI - GI History of Present Illness Chief Complaint: Abd Pain Narrative Narrative: 33-year-old female with history of chronic abdominal pain, type 2 diabetes, cannabis use, UTIs, pyelonephritis presenting with abdominal pain. She states he been constipated for about a week and a half. She states she tried MiraLAX without relief. I inquired about her diet she is eating high-fiber foods and she states I am eating what ever. Patient states she does not have any money right now to buy any kind of other laxative. She states she has had magnesium citrate in the past which did not work. She states she has tried GoLytely and this did not work. Patient had a follow-up previously with Dr. Torres but missed the appointment for surgery on her foot apparently. She has not been able to establish. She has chronic abdominal pain which is no different today. No fevers or chills. She does have nausea. Patient states that her last visit she had significant relief of her nausea. Patient denies any abdominal surgery history. [facility] Medical History Anxiety Asthma Constipation Depression Diabetes Diabetes mellitus with diabetic polyneuropathy Elevated serum creatinine Failure of outpatient treatment Hypertension Nausea and vomiting Neuropathy, diabetic Type 2 diabetes mellitus with foot ulcer Type 2 diabetes mellitus with peripheral neuropathy Home Medications insulin glargine 100 unit/mL (3 mL) subcutaneous pen (Lantus Solostar U-100 Insulin) 15 unit subcut BID diabetes 08/12/22 [History Last Taken 06/25/23] promethazine 25 mg tablet 25 mg PO TID PRN nausea and vomiting #15 tabs 06/25/23 [Rx Last Taken Unknown] metoclopramide HCl 10 mg tablet (Reglan) 10 mg PO Q6H PRN nausea and vomiting #15 tabs 06/28/23 [Rx Last Taken Unknown] lactulose 20 gram/30 mL oral solution 20 g (30 mL) PO DAILY constipation #1,200 mL 06/30/23 [Rx Last Taken Unknown] metoclopramide HCl 10 mg tablet (Reglan) 10 mg PO Q6H PRN nausea and vomiting #14 tabs 06/30/23 [Rx Last Taken Unknown] promethazine 25 mg tablet 25 mg PO TID PRN nausea and vomiting #14 tabs 06/30/23 [Rx Last Taken Unknown] Allergy/AdvReac Type Severity Reaction Status Date / Time No Known Allergies Allergy Verified 06/30/23 08:22 Family History Other Bleeding disorder Cancer Diabetes Hypertension Surgical History Hx of foot surgery Social History Smoking Status: Current every day smoker tobacco type: cigarettes alcohol intake: never substance use type: does not use what type of physical activity do you participate in: none ROS ROS ED Constitutional Constitutional ED: Denies chills or fever(s) ENT ENT ED: Denies rhinorrhea or sore throat Cardiovascular Cardiovascular: Denies chest pain or palpitations Respiratory/Chest Respiratory/Chest: Denies cough or dyspnea Gastrointestinal Gastrointestinal: Reports abdominal pain, constipation and nausea Genitourinary Genitourinary ED: Denies dysuria or hematuria Musculoskeletal Musculoskeletal: Denies arthralgias Integumentary Denies abscess Neurologic Neurologic: Denies headache(s) or paresthesias Psychiatric Psychiatric: Denies anxiety or depression Endocrine Endocrinology: Denies polydipsia or polyphagia EXAM Physical Exam Const Vital Signs: 06/30/23 08:22 06/30/23 13:41 Temperature 98 F Temperature Source Temporal Pulse Rate 98 72 Respiratory Rate 14 16 Blood Pressure 170/110 H Blood Pressure Mean 130 Pulse Ox 100 98 Oxygen Delivery Method Room Air Positive well nourished General Appearance ED: NAD HEENT Reports moist mucous membranes and dry mucous membranes normocephalic Mouth ED: Yes dry mucous membranes Mouth: dry mucous membranes Eyes PERRL and EOMs intact bilaterally Resp normal respiratory effort Cardio regular rate and regular rhythm GI Palpation: soft; Negative for guarding, rigid, hepatomegaly or hernia Back/Spine no CVA tenderness Neuro CN's II-XII intact bilaterally Sensorium / Orientation: alert Psych mental status grossly normal and thought process normal MDM MDM MDM Narrative Medical decision making narrative: Patient with chronic pain presenting with constipation. Differential includes constipation, dehydration, electro abnormalities, cannabis hyperemesis syndrome as the patient does use marijuana. Denies urinary symptoms or flank pain. She states that she tried multiple things in the past without relief of her constipation. She states that she was treated as cyclic vomiting syndrome last time and her nausea was well-controlled. We will give her this today and see if she can tolerate p.o. Since she is never tried lactulose we will try this for constipation if she can tolerate p.o. Patient amenable to this plan. She was ordered to assess white blood cell count, hemoglobin, platelets. CMP to assess liver function, renal function, electrolytes, glucose. CBC shows normal white blood cell count 9.9. Hemoglobin stable at 12.2. Platelets normal at 437. Renal function, electrolytes all within normal limits. LFTs are normal. Lipase is normal. On reevaluation the patient is feeling improved she is resting comfortably. She was given a dose of lactulose and tolerated this. I will give her some of this for home to use for constipation. She was given refills of Phenergan and Reglan. Return precautions were discussed. Impression: 1. Abdominal pain 2. Nausea 3. Constipation Lab Data Attestation: I reviewed the patient's lab results. Labs: Laboratory Results - last 24 hr 06/30/23 10:01 WBC 9.9 RBC 4.56 Hgb 12.2 Hct 38.3 MCV 84.0 MCH 26.8 L MCHC 31.9 L RDW Std Deviation 41.9 RDW Coeff of John 13.6 Plt Count 437 MPV 9.0 Immature Gran % (Auto) 0.400 Neut % (Auto) 62.9 Lymph % (Auto) 30.0 [place] % (Auto) 6.1 Eos % (Auto) 0.1 Baso % (Auto) 0.5 Absolute Neuts (auto) 6.2 Absolute Lymphs (auto) 2.97 Nucleated RBC % 0 Sodium 137 Potassium 3.3 L Chloride 103 Carbon Dioxide 26.0 Anion Gap 8 BUN 9 Creatinine 0.86 Estim Creat Clear Calc 88.73 Est GFR (MDRD) Af Amer 98 Est GFR (MDRD) Non-Af 81 BUN/Creatinine Ratio 10.4 Glucose 201 H Calcium 9.4 Total Bilirubin 0.50 AST 7 L ALT 11 L Alkaline Phosphatase 114 Total Protein 8.0 Albumin 3.4 Globulin 4.6 H Albumin/Globulin Ratio 0.7 L Lipase 22 Discharge Plan Triage Chief Complaint: Abd Pain ED Provider: Alex Christiansen Dx/Rx/DC Orders Instructions: ED Abdominal Pain Unkn Cause Fem, ED Constipation (Adult) Prescriptions: New lactulose 20 gram/30 mL solution 20 g PO DAILY Qty: 1200 0RF metoclopramide HCl [Reglan] 10 mg tablet 10 mg PO Q6H PRN (Reason: nausea and vomiting) Qty: 14 0RF promethazine 25 mg tablet 25 mg PO TID PRN (Reason: nausea and vomiting) Qty: 14 0RF No Action insulin glargine [Lantus Solostar U-100 Insulin] 100 unit/mL (3 mL) insulin pen 15 unit SUBCUT BID Patient Comments: inject 20 units subcutaneous twice daily metoclopramide HCl [Reglan] 10 mg tablet 10 mg PO Q6H PRN (Reason: nausea and vomiting) Qty: 15 0RF promethazine 25 mg tablet 25 mg PO TID PRN (Reason: nausea and vomiting) Qty: 15 0RF Primary Care Provider: Sophy Chi Referrals: Sophy Chi [Primary Care Provider] - Disposition Disposition: Home, Self Care Discharge Date/Time: 06/30/23 13:42
[2023-06-30 10:07] LABS: Absolute Lymphocyte Count 2.97 X10^3/uL (0.83-4.51); Absolute Neutrophil Count 6.2 X10^3/uL (2.0-7.7); Basophil# 0.05 X10^3/uL; Basophil% 0.5 % (0-1); Eosinophil# 0.01 X10^3/uL; Eosinophils% 0.1 % (0-5); Hematocrit 38.3 % (37-47); Hemoglobin 12.2 g/dL (12.0-15.0); Lymphocyte # 2.97 X10^3/ul (0.83-4.51); Mean Corp Hgb Conc 31.9 g/dL (32-36); Mean Corpuscular Hgb 26.8 pg (27.0-32.0); Monocyte% 6.1 % (0-10); NRBC Flagged by Analyzer 0 % (0-5); Neutrophil # 6.24 X10^3/uL (2.7-7.7); Neutrophil % 62.9 % (47-70); Platelet Count 437 K/mm3 (150-450); RBC Distribution Width CV 13.6 % (11.6-14.6); RBC Distribution Width SD 41.9 fl (35.1-43.9); Red Blood Count 4.56 M/mm3 (4.2-5.4); White Blood Count 9.9 K/mm3 (4.4-11.0)
[2023-06-30 10:23] LABS: ALB/GLOB Ratio 0.7 RATIO (0.9-2.4); AST(SGOT) 7 U/L (15-37); Alanine Aminotransfer ALT/SGPT 11 U/L (13-56); Albumin, Serum 3.4 g/dL (3.2-5.0); Alkaline Phosphatase 114 U/L (45-117); Anion Gap 8 (5-15); BUN 9 mg/dL (7-18); BUN/Creat Ratio 10.4 RATIO (10-20); Calcium,Total 9.4 mg/dL (8.5-10.1); Chloride 103 mmol/L (98-107); Creatinine, Serum 0.86 mg/dL (0.55-1.02); EST Glomerular Filtration Rate 81 mL/min (>60); Est Glom Filt Rate - Afr Amer 98 mL/min (>60); Estimated Creatinine Clearance 88.73 ml/min; Globulin 4.6 g/dL (2.2-4.2); Glucose 201 mg/dL (74-106); Lipase 22 U/L (13-75); Potassium 3.3 mmol/L (3.5-5.1); Sodium Level 137 mmol/L (136-145)
[2023-06-30] MEDS: DiphenhydrAMINE 25 MG, ChlorproMAZINE IM 50 MG in 0.9% Normal Saline (250mL Bag) 250 ML 252.5 MG IV (10:25)
[2023-06-30] MEDS: 0.9% Normal Saline (1000mL) 1,000 ML 999 ML IV (10:25)
[2023-06-30] MEDS: Famotidine 200 MG/20 ML MDV 20 MG in 0.9% Normal Saline (Pres. free 8 ML 300 MG IV (10:25)
[2023-06-30] MEDS: LORazepam 2 MG/ML Syringe 0.5 MG IV (10:25)
[2023-06-30] MEDS: Ondansetron 4 MG/2 ML Vial IV (10:25)
[2023-06-30] MEDS: Morphine 4 MG/ML Syringe IV (10:26)
[2023-06-30] MEDS: Lactulose 20 GM/30 ML UDC PO (12:46)
[2023-06-30 13:41] VITALS: PULSE 72; RESP 16; O2SAT 98
== END 2023-06-30 13:42 | disposition home or self-care (01) ==
PROVIDERS: Emergency Provider Student in an Organized Health Care Education/Training Program; Visit Provider Student in an Organized Health Care Education/Training Program
DX: R10.9 Unspecified abdominal pain (principal); E11.42 Type 2 diabetes mellitus with diabetic polyneuropathy; K59.00 Constipation, unspecified; I10 Essential (primary) hypertension; R11.0 Nausea; G89.29 Other chronic pain; J45.909 Unspecified asthma, uncomplicated; F17.210 Nicotine dependence, cigarettes, uncomplicated
CPT/HCPCS: 36415; 80053; 83690; 85025; 96365; 96366; 96368; 96375; 99283; J7030; J7050; A4216; J2405; J3490

== ENCOUNTER 2023-07-02 09:14 | Emergency (ER) | payer MEDICAID, SELFPAY ==
[2023-07-02 09:14] VITALS: PULSE 100; RESP 16; TEMP 35.8; O2SAT 100
[2023-07-02 09:17] VITALS: BP 142/94
--- NOTE | 2023-07-02 09:28 | EX.ED.VIS.EY ---
HPI History of Present Illness Chief Complaint: Eye Problem Informant: patient Narrative Narrative: 33-year-old female who is a diabetic presenting to the emergency department with right periorbital redness and eye tearing. Patient states that several days ago she began to have a bump over the medial inferior aspect of the eyelid. She states subsequently she developed hearing and redness over the inferior part of the eye. She went to urgent care yesterday and was referred to ophthalmology. She could not go to that appointment. Patient denies any fevers. She has had multiple emergency departments recently for vomiting. She states that this is not the first time this is happened with her eye. No significant visual changes. She does not wear contacts. [facility] Medical History Anxiety Asthma Constipation Depression Diabetes Diabetes mellitus with diabetic polyneuropathy Elevated serum creatinine Failure of outpatient treatment Hypertension Nausea and vomiting Neuropathy, diabetic Type 2 diabetes mellitus with foot ulcer Type 2 diabetes mellitus with peripheral neuropathy Home Medications insulin glargine 100 unit/mL (3 mL) subcutaneous pen (Lantus Solostar U-100 Insulin) 15 unit subcut BID diabetes 08/12/22 [History Last Taken 06/25/23] promethazine 25 mg tablet 25 mg PO TID PRN nausea and vomiting #15 tabs 06/25/23 [Rx Last Taken Unknown] metoclopramide HCl 10 mg tablet (Reglan) 10 mg PO Q6H PRN nausea and vomiting #15 tabs 06/28/23 [Rx Last Taken Unknown] lactulose 20 gram/30 mL oral solution 20 g (30 mL) PO DAILY constipation #1,200 mL 06/30/23 [Rx Last Taken Unknown] metoclopramide HCl 10 mg tablet (Reglan) 10 mg PO Q6H PRN nausea and vomiting #14 tabs 06/30/23 [Rx Last Taken Unknown] promethazine 25 mg tablet 25 mg PO TID PRN nausea and vomiting #14 tabs 06/30/23 [Rx Last Taken Unknown] amoxicillin 875 mg-potassium clavulanate 125 mg tablet 875 mg (0.875 x 875-125 mg) PO Q12H #14 TABLETS 07/02/23 [Rx Last Taken Unknown] bacitracin-polymyxin B 500 unit-10,000 unit/gram eye ointment 1 applic RIGHT EYE Q6H 7 days #3.5 grams 07/02/23 [Rx Last Taken Unknown] clindamycin HCl 300 mg capsule (Cleocin HCl) 300 mg PO Q6H #28 CAPSULES 07/02/23 [Rx Last Taken Unknown] Allergy/AdvReac Type Severity Reaction Status Date / Time No Known Allergies Allergy Verified 06/30/23 08:22 Family History Other Bleeding disorder Cancer Diabetes Hypertension Surgical History Hx of foot surgery Social History Smoking Status: Current every day smoker tobacco type: cigarettes alcohol intake: never substance use type: does not use what type of physical activity do you participate in: none ROS ROS ED Constitutional Constitutional ED: Denies chills, fever(s) or weight loss Eyes Eyes: Reports other Details: Periorbital redness. Eye tearing. Eyelid bump. ; Denies blurry vision, change in vision or diplopia ENT ENT ED: Denies ear pain, rhinorrhea or sore throat Cardiovascular Cardiovascular: Denies chest pain, orthopnea, palpitations or racing heartbeat Respiratory/Chest Respiratory/Chest: Denies cough, dyspnea or orthopnea Gastrointestinal Gastrointestinal: Reports nausea and vomiting; Denies abdominal pain or diarrhea Genitourinary Genitourinary ED: Denies dysuria, hematuria or urinary frequency Musculoskeletal Musculoskeletal: Denies arthralgias or myalgias Integumentary Denies abscess or rash Neurologic Neurologic: Denies headache(s) or weakness Psychiatric Psychiatric: Denies anxiety, depression, suicidal ideation or suicidal thoughts Endocrine Endocrinology: Denies polydipsia, polyphagia or polyuria Allergic/Immunologic Allergic/Immunologic ED: Denies mouth swelling, tongue swelling or urticaria EXAM Physical Exam Const Vital Signs: 07/02/23 09:14 07/02/23 09:17 Temperature 96.4 F L Temperature Source Temporal Pulse Rate 100 Respiratory Rate 16 Blood Pressure 142/94 H Blood Pressure Mean 110 Pulse Ox 100 Oxygen Delivery Method Room Air Positive well nourished and well developed General Appearance ED: well developed HEENT Reports normocephalic, head/scalp atraumatic and moist mucous membranes Eyes PERRL and EOMs intact bilaterally Eyes Narrative: No conjunctival or scleral redness. On fluorescein staining there is no dye uptake of the cornea. Anterior chambers deep and quiet. Inferiorly on the periorbital skin is erythema. Located medially at the level of the tear duct is some localized swelling and yellowish crusting. There is no significant swelling. That precludes opening the eye. There is no ptosis. Neck no lymphadenopathy, supple and no JVD Resp normal respiratory effort and clear to auscultation bilaterally Cardio regular rate, regular rhythm and no murmurs GI normal to inspection, nondistended, normoactive bowel sounds and non-tender Palpation: soft Back/Spine no CVA tenderness and normal ROM Extremity normal to inspection General Extremety ED: Negative for edema General Extremity: Negative for edema Neuro oriented x3 and CN's II-XII intact bilaterally Sensorium / Orientation: alert Motor Exam: strength 5/5 throughout Psych mental status grossly normal Mood & Affect: Negative for depressed or tearful Skin no rashes or lesions noted and no wounds MDM MDM MDM Narrative Medical decision making narrative: The bump seems to be away from any eyelash. It is at the level of the tear duct which may represent a acutely occluded tear ducts. There is erythema of the inferior skin. Concerned about a periorbital cellulitis will treat with oral antibiotics. Will also write for a topical eye ointment. Do gentle massage and warm compresses. Would recommend ophthalmologic follow-up early next week or return if worsening. Given the holiday weekend I would not expect the patient to be able to have follow-up within 24 to 48 hours. She is also uncertain if she would be able to make a follow-up appointment tomorrow. Discharge Plan Triage Chief Complaint: Eye Problem ED Provider: Tesfaye Mitchell Dx/Rx/DC Orders Clinical Impression: Blocked tear duct, Periorbital cellulitis of right eye Instructions: ED Periorbital Cellulitis Prescriptions: New clindamycin HCl [Cleocin HCl] 300 mg capsule 300 mg PO Q6H Qty: 28 0RF amoxicillin-pot clavulanate [amoxicillin-pot clavulanate] 875-125 mg tablet 875 mg PO Q12H Qty: 14 0RF bacitracin-polymyxin B 500-10,000 unit/gram ointment 1 applic RIGHT EYE Q6H 7 Days Qty: 3.5 0RF No Action insulin glargine [Lantus Solostar U-100 Insulin] 100 unit/mL (3 mL) insulin pen 15 unit SUBCUT BID Patient Comments: inject 20 units subcutaneous twice daily metoclopramide HCl [Reglan] 10 mg tablet 10 mg PO Q6H PRN (Reason: nausea and vomiting) Qty: 15 0RF promethazine 25 mg tablet 25 mg PO TID PRN (Reason: nausea and vomiting) Qty: 15 0RF lactulose 20 gram/30 mL solution 20 g PO DAILY Qty: 1200 0RF metoclopramide HCl [Reglan] 10 mg tablet 10 mg PO Q6H PRN (Reason: nausea and vomiting) Qty: 14 0RF promethazine 25 mg tablet 25 mg PO TID PRN (Reason: nausea and vomiting) Qty: 14 0RF [facility]: Otto Collier MD [Med Staff - Active Staff] - 3-5 Days Sophy Chi [Non-Staff] - Activity Restrictions/Additional Instructions: I would recommend gentle massage of the tear duct. Warm compresses as discussed. I would highly encourage ophthalmologic follow-up. Monitor for worsening symptoms return if needed. Disposition Disposition: Home, Self Care
[2023-07-02] MEDS: Tetracaine 0.5% Ophthalmic Bottle 1 DRP EACH EYE (09:34)
== END 2023-07-02 09:43 | disposition home or self-care (01) ==
PROVIDERS: Emergency Provider Emergency Medicine; Visit Provider Emergency Medicine
DX: L03.213 Periorbital cellulitis (principal); E11.42 Type 2 diabetes mellitus with diabetic polyneuropathy; Z79.4 Long term (current) use of insulin; I10 Essential (primary) hypertension
CPT/HCPCS: 99282

== ENCOUNTER 2023-07-12 10:08 | Emergency (ER) | payer MEDICAID, SELFPAY ==
[2023-07-12 10:13] VITALS: BP 124/90; PULSE 98; RESP 14; TEMP 36.8; O2SAT 100; BMI 32.1
--- NOTE | 2023-07-12 10:29 | EDS_ITS ---
HPI HPI - GI History of Present Illness Chief Complaint: Abd Pain Informant: patient and EMS Narrative Narrative: Patient presents by EMS with nausea vomiting and abdominal pain. She states she has been having this problem for a year. She has symptoms almost every single day of her life. She has seen director phone but it is not helping. She is trying to get into see Dr. Torres but ointments are 6 months out. She has been seen here. She has had multiple scans and workup. There have been some questions of hyperemesis from cannabis. But she states she does not smoke marijuana at all anymore. Her last screen was negative. She does smoke cigarettes and was counseled to quit. She has diabetes type 2 but does use insulin. But she states her sugars have been running about 150. She oftentimes has problems with constipation but states she is moving her bowels pretty normally now. She cannot think of anything that caused at this time. No blood in the stool or vomitus. No fevers or chills. She states the abdomen hu rts kind of all over and it moves to different spots all the time. She tried some Zofran at home and it did not help. [facility] Medical History Anxiety Asthma Constipation Depression Diabetes Diabetes mellitus with diabetic polyneuropathy Elevated serum creatinine Failure of outpatient treatment Hypertension Nausea and vomiting Neuropathy, diabetic Type 2 diabetes mellitus with foot ulcer Type 2 diabetes mellitus with peripheral neuropathy Home Medications insulin glargine 100 unit/mL (3 mL) subcutaneous pen (Lantus Solostar U-100 Insulin) 15 unit subcut BID diabetes 08/12/22 [History Last Taken 06/25/23] promethazine 25 mg tablet 25 mg PO TID PRN nausea and vomiting #15 tabs 06/25/23 [Rx Last Taken Unknown] metoclopramide HCl 10 mg tablet (Reglan) 10 mg PO Q6H PRN nausea and vomiting #15 tabs 06/28/23 [Rx Last Taken Unknown] lactulose 20 gram/30 mL oral solution 20 g (30 mL) PO DAILY constipation #1,200 mL 06/30/23 [Rx Last Taken Unknown] metoclopramide HCl 10 mg tablet (Reglan) 10 mg PO Q6H PRN nausea and vomiting #14 tabs 06/30/23 [Rx Last Taken Unknown] promethazine 25 mg tablet 25 mg PO TID PRN nausea and vomiting #14 tabs 06/30/23 [Rx Last Taken Unknown] amoxicillin 875 mg-potassium clavulanate 125 mg tablet 875 mg (0.875 x 875-125 mg) PO Q12H #14 TABLETS 07/02/23 [Rx Last Taken Unknown] bacitracin-polymyxin B 500 unit-10,000 unit/gram eye ointment 1 applic RIGHT EYE Q6H 7 days #3.5 grams 07/02/23 [Rx Last Taken Unknown] clindamycin HCl 300 mg capsule (Cleocin HCl) 300 mg PO Q6H #28 CAPSULES 07/02/23 [Rx Last Taken Unknown] metoclopramide HCl 10 mg tablet 10 mg PO 4X/DAY PRN nausea and vomiting #20 tabs 07/12/23 [Rx Last Taken Unknown] promethazine 25 mg tablet 25 mg PO Q6H PRN PRN Nausea #10 TABLETS 07/12/23 [Rx Last Taken Unknown] Allergy/AdvReac Type Severity Reaction Status Date / Time No Known Allergies Allergy Verified 06/30/23 08:22 Family History Other Bleeding disorder Cancer Diabetes Hypertension Surgical History Hx of foot surgery Social History Smoking Status: Current every day smoker tobacco type: cigarettes alcohol intake: never substance use type: does not use what type of physical activity do you participate in: none ROS ROS ED Constitutional Constitutional ED: Denies chills, fever(s) or subjective ENT ENT ED: Denies rhinorrhea or sore throat Cardiovascular Cardiovascular: Denies chest pain or palpitations Respiratory/Chest Respiratory/Chest: Denies cough or dyspnea Gastrointestinal Gastrointestinal: Reports abdominal pain, nausea and vomiting; Denies constipation, diarrhea or melena Genitourinary Genitourinary ED: Denies dysuria, hematuria or urinary frequency Musculoskeletal Musculoskeletal: Denies myalgias Integumentary Denies rash Neurologic Neurologic: Denies headache(s) Psychiatric Psychiatric: Reports anxiety Endocrine Endocrinology: Denies polydipsia or polyuria Hematologic/Lymphatic Hematologic/Lymphatic: Denies easy bleeding or easy bruising Allergic/Immunologic Allergic/Immunologic ED: Denies urticaria EXAM Physical Exam Narrative Exam Narrative: CONSTITUTIONAL: Patient is crying while we talk. She does look somewhat uncomfortable. HEENT: No notable trauma. Mucous membranes are still moist. No sinus tenderness. No indication of pain with swallowing. No erythema or exudate. EYES: No conjunctival injection. No icterus. CARDIOVASCULAR: Regular rate. Regular rhythm. No notable murmur. No JVD. RESPIRATORY: No respiratory distress. Breathing is unlabored. No wheezes. No rhonchi. No rales. No pain with a deep breath. Saturations are normal at 100% on room air showing no hypoxia. GASTROINTESTINAL: Not distended. Bowel sounds are normal. She has some mild left upper quadrant tenderness but not significant. No guarding or rebound. GENITOURINARY: No tenderness over the bladder. No CVA tenderness. MUSCULOSKELETAL: Atraumatic. No peripheral edema. No cord. No tenderness along the deep venous system. No asymmetry. She does have surgical removal of the single toe from prior diabetic infection. But no sign of infection now NEUROLOGICAL: Patient is alert and appropriate. No focal deficit noted. SKIN: No noted rashes. No diaphoresis. PSYCHIATRIC: Patient is calm. Mood is appropriate. Const Vital Signs: 07/12/23 10:13 Temperature 98.2 F Temperature Source Temporal Pulse Rate 98 Respiratory Rate 14 Blood Pressure 124/90 H Blood Pressure Mean 101 Pulse Ox 100 Oxygen Delivery Method Room Air MDM MDM MDM Narrative Medical decision making narrative: Patient CBC is normal. Platelets are just minimally high. Patient's lecture lites show no marked abnormalities. Glucose is reasonably well-controlled at 177 and close to what she said it has been doing. Patient's liver function test show no marked abnormalities. Patient's lipase is normal at 30. Patient's urine is not indicative of a UTI and is not a clean-catch and she has no symptoms of UTI Patient's urine toxicology screen is positive for MDMA again. But there are multiple meds that can cross-react with this. Cannabis is negative. Patient's recheck. She is actually feeling better. Nausea is almost completely gone. She has not vomited here. She has Zofran ODT's at home. She does not have Reglan and Phenergan. She thinks Reglan actually helped the most. She may have a component of gastroparesis also. She has had 2 negative urine test for cannabinoids and still having symptoms of this is decreasing the likelihood of cannabis hyperemesis as her primary issue. We discussed reasons to return. Since she is improving, has a relatively benign abdomen, and has had 6 CAT scans in the last year I do not think it is appropriate to redo this at this time. Lab Data Attestation: I reviewed the patient's lab results. Labs: Laboratory Results - last 24 hr 07/12/23 11:10 WBC 10.5 RBC 5.20 Hgb 13.6 Hct 43.0 MCV 82.7 MCH 26.2 L MCHC 31.6 L RDW Std Deviation 39.8 RDW Coeff of John 13.3 Plt Count 459 H MPV 9.2 Immature Gran % (Auto) 0.200 Neut % (Auto) 51.3 Lymph % (Auto) 42.6 H [place] % (Auto) 5.2 Eos % (Auto) 0.3 Baso % (Auto) 0.4 Absolute Neuts (auto) 5.4 Absolute Lymphs (auto) 4.46 Nucleated RBC % 0 Sodium 136 Potassium 4.2 Chloride 100 Carbon Dioxide 28.0 Anion Gap 8 BUN 13 Creatinine 1.01 Estim Creat Clear Calc 75.55 Est GFR (MDRD) Af Amer 82 Est GFR (MDRD) Non-Af 68 BUN/Creatinine Ratio 12.9 Glucose 177 H Calcium 9.3 Total Bilirubin 0.60 AST 21 ALT 12 L Alkaline Phosphatase 112 Total Protein 9.0 H Albumin 3.6 Globulin 5.4 H Albumin/Globulin Ratio 0.7 L Lipase 30 Serum , Qual NEGATIVE Urine Color Yellow Urine Clarity Cloudy Urine pH 7.0 Ur Specific [place] 1.010 Urine Protein 30 H Urine Glucose (UA) Normal Urine Ketones 5 H Urine Occult Blood 10 H Urine Nitrite Negative Urine Bilirubin 1 H Urine Urobilinogen 1 H Ur Leukocyte Esterase 100 H Urine RBC 0-5 SEEN Urine WBC 5-10 SEEN Ur Squamous Epith Cells 10-25 SEEN Urine Bacteria 2+ Urine Mucus 0 SEEN Urine Opiates Screen NEGATIVE Urine Methadone Screen NEGATIVE Ur Barbiturates Screen NEGATIVE Ur Phencyclidine Scrn NEGATIVE Ur Amphetamines Screen NEGATIVE MDMA (Ecstasy) Screen POSITIVE H U Benzodiazepines Scrn NEGATIVE Urine Cocaine Screen NEGATIVE U Cannabinoids Screen NEGATIVE Ur Drug Screen Comment Discharge Plan Triage Chief Complaint: Abd Pain ED Provider: Willie Dhillon Dx/Rx/DC Orders Clinical Impression: History of diabetes mellitus, type II, Nausea & vomiting Instructions: ED Vomiting (Adult) Prescriptions: New metoclopramide HCl [metoclopramide HCl] 10 mg tablet 10 mg PO 4X/DAY PRN (Reason: nausea and vomiting) Qty: 20 0RF promethazine [promethazine] 25 mg tablet 25 mg PO Q6H PRN PRN (Reason: Nausea) Qty: 10 0RF No Action insulin glargine [Lantus Solostar U-100 Insulin] 100 unit/mL (3 mL) insulin pen 15 unit SUBCUT BID Patient Comments: inject 20 units subcutaneous twice daily metoclopramide HCl [Reglan] 10 mg tablet 10 mg PO Q6H PRN (Reason: nausea and vomiting) Qty: 15 0RF promethazine 25 mg tablet 25 mg PO TID PRN (Reason: nausea and vomiting) Qty: 15 0RF lactulose 20 gram/30 mL solution 20 g PO DAILY Qty: 1200 0RF metoclopramide HCl [Reglan] 10 mg tablet 10 mg PO Q6H PRN (Reason: nausea and vomiting) Qty: 14 0RF promethazine 25 mg tablet 25 mg PO TID PRN (Reason: nausea and vomiting) Qty: 14 0RF clindamycin HCl [Cleocin HCl] 300 mg capsule 300 mg PO Q6H Qty: 28 0RF amoxicillin-pot clavulanate [amoxicillin-pot clavulanate] 875-125 mg tablet 875 mg PO Q12H Qty: 14 0RF bacitracin-polymyxin B 500-10,000 unit/gram ointment 1 applic RIGHT EYE Q6H 7 Days Qty: 3.5 0RF Primary Care Provider: [facility] Santiago [facility] - As soon as possible Disposition Disposition: Home, Self Care
[2023-07-12] MEDS: Ondansetron 4 MG/2 ML Vial IV (11:12)
[2023-07-12] MEDS: 0.9% Normal Saline (1000mL) 1,000 ML 1000 ML IV (11:12)
[2023-07-12] MEDS: Dicyclomine 20 MG/2 ML Vial IM (11:13)
[2023-07-12 11:22] LABS: Mucous, Urine 0 SEEN /hpf (<or=2+)
[2023-07-12 11:25] LABS: Color, Urine Yellow (Yellow); Glucose, Dipstick Normal (Normal); Ketone-Dipstick 5 mg/dl (Negative); Leukocyte Esterase-Dipstick 100 /ul (Negative); Nitrite-Dipstick Negative (Negative); Occult Blood-Urine 10 /ul (Negative); Protein-Dipstick 30 mg/dl (Negative); Urine Bilirubin Dipstick 1 mg/dL (Negative); Urine Clarity Cloudy (Clear); Urine Urobilinogen 1 mg/dl (Normal)
[2023-07-12 11:26] LABS: Absolute Lymphocyte Count 4.46 X10^3/uL (0.83-4.51); Absolute Neutrophil Count 5.4 X10^3/uL (2.0-7.7); Basophil# 0.04 X10^3/uL; Basophil% 0.4 % (0-1); Eosinophil# 0.03 X10^3/uL; Eosinophils% 0.3 % (0-5); Hemoglobin 13.6 g/dL (12.0-15.0); Lymphocyte # 4.46 X10^3/ul (0.83-4.51); Lymphocyte % 42.6 % (19-41); Mean Corp Hgb Conc 31.6 g/dL (32-36); Mean Corpuscular Hgb 26.2 pg (27.0-32.0); Mean Corpuscular Volume 82.7 fL (81-99); Mean Platelet Vol. 9.2 fl (6.2-12.0); Monocyte# 0.54 X10^3/uL; Monocyte% 5.2 % (0-10); NRBC Flagged by Analyzer 0 % (0-5); Neutrophil # 5.37 X10^3/uL (2.7-7.7); Neutrophil % 51.3 % (47-70); Platelet Count 459 K/mm3 (150-450); RBC Distribution Width CV 13.3 % (11.6-14.6); RBC Distribution Width SD 39.8 fl (35.1-43.9); White Blood Count 10.5 K/mm3 (4.4-11.0)
[2023-07-12 11:30] LABS: Bacteria 2+ /hpf (None Seen); Red Blood Cells-Urine 0-5 SEEN /hpf (0-5); Squamous Epithelial Cells - UA 10-25 SEEN /hpf (5-10); White Blood Cells 5-10 SEEN /hpf (0-5)
[2023-07-12 11:37] LABS: Internal QC Validated? YES +Cl - CLEAR BKGD; Pregnancy, Serum, hCG Quali. NEGATIVE Negative
[2023-07-12 11:41] LABS: Amphetamine Urine VISTA NEGATIVE (<1000 ng/mL); Barbiturate Urine VISTA NEGATIVE (< 200 ng/mL); Benzodiazepine Urine VISTA NEGATIVE (< 200 ng/mL); Cocaine Urine VISTA NEGATIVE (< 300 ng/mL); Ecstacy Urine VISTA POSITIVE (< 500 ng/mL); Methadone Urine VISTA NEGATIVE (< 300 ng/mL); PCP Urine VISTA NEGATIVE (< 25 ng/mL); THC Urine VISTA NEGATIVE (< 50 ng/mL); Vista UDS pH Range 7
[2023-07-12 11:42] LABS: ALB/GLOB Ratio 0.7 RATIO (0.9-2.4); AST(SGOT) 21 U/L (15-37); Alanine Aminotransfer ALT/SGPT 12 U/L (13-56); Albumin, Serum 3.6 g/dL (3.2-5.0); Alkaline Phosphatase 112 U/L (45-117); Anion Gap 8 (5-15); BUN 13 mg/dL (7-18); BUN/Creat Ratio 12.9 RATIO (10-20); Calcium,Total 9.3 mg/dL (8.5-10.1); Chloride 100 mmol/L (98-107); Creatinine, Serum 1.01 mg/dL (0.55-1.02); EST Glomerular Filtration Rate 68 mL/min (>60); Est Glom Filt Rate - Afr Amer 82 mL/min (>60); Estimated Creatinine Clearance 75.55 ml/min; Globulin 5.4 g/dL (2.2-4.2); Glucose 177 mg/dL (74-106); Lipase 30 U/L (13-75); Potassium 4.2 mmol/L (3.5-5.1); Sodium Level 136 mmol/L (136-145)
== END 2023-07-12 12:36 | disposition home or self-care (01) ==
PROVIDERS: Emergency Provider Emergency Medicine; Visit Provider Emergency Medicine
DX: R11.2 Nausea with vomiting, unspecified (principal); E11.40 Type 2 diabetes mellitus with diabetic neuropathy, unspecified; Z79.4 Long term (current) use of insulin; F17.210 Nicotine dependence, cigarettes, uncomplicated; J45.909 Unspecified asthma, uncomplicated; F41.9 Anxiety disorder, unspecified
CPT/HCPCS: 80053; 80307; 81001; 83690; 84703; 85025; 96361; 96372; 96374; 99283; J7030; A4216; J2405

== ENCOUNTER 2023-07-23 08:12 | Day surgery (SDC) | payer MEDICAID, SELFPAY ==
--- NOTE | 2023-07-23 08:00 | RAD_ITS ---
STUDY: X-RAY - RIGHT FOOT CLINICAL: Female, 33 years old. FOOT TRASNMETATARSAL AMPUTATION TECHNIQUE: 2 C-arm view(s) of the foot. 14 seconds fluoroscopy time. COMPARISON: 05/04/2023. 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 Correlate with procedure note. Electronically Signed: Olu Baker MD at 21:23 EST , RAD/Foot min 3 Views IMPRESSION: undefined
[2023-07-23 08:34] VITALS: BP 116/87; PULSE 88; RESP 18; TEMP 36.1; O2SAT 100; BMI 32.5
[2023-07-23] MEDS: Acetaminophen 500 MG Tablet 1000 MG PO (08:43)
[2023-07-23] MEDS: Lactated Ringers 1,000 ML 15 ML IV (08:43)
[2023-07-23 08:44] LABS: Internal QC Validated? YES +Cl - CLEAR BKGD; Pregnancy, Urine Negative Negative; Record Kit Lot#,Urine Preg HCG0000667200
[2023-07-23] MEDS: Magnesium 1 GM over 15 mins IV (08:44)
[2023-07-23] MEDS: Gabapentin 600 MG Tablet PO (08:44)
--- NOTE | 2023-07-23 08:51 | PCM.OPRPT ---
Problems Associated Problem List Diagnoses (1) Non-pressure chronic ulcer of other part of right foot with fat layer exposed: (2) Acute painful diabetic polyneuropathy: (3) Other acute osteomyelitis, right ankle and foot: Report of Operation Date of Procedure: 07/23/23 Pre-Operative Diagnosis: 1. Full-thickness ulceration plantar aspect right foot 2. Chronic osteomyelitis, right foot 3. Diabetes mellitus type 2 with peripheral neuropathy Post-Operative Diagnosis: 1. Full-thickness ulceration plantar aspect right foot 2. Chronic osteomyelitis, right foot 3. Diabetes mellitus type 2 with peripheral neuropathy Surgery/Procedure Performed:: 1. Transmetatarsal amputation, right foot 2. Musculocutaneous flap closure, right foot Description of Surgical Findings:: 1. Successful removal of metatarsals for transmetatarsal amputation, right foot 2. Closure via musculocutaneous flap, right foot 3. Evidence of soft remaining fifth metatarsal which was removed, half sent to microbiology and have sent to pathology. 4. Application of antibiotic cement, vancomycin, metatarsals, right foot 5. Application of vancomycin powder, right foot Surgeon: Stephan Forrest mechanical engineering officer: Fabricio Gonzalez Type of Anesthesia: General and Local Anesthesiologist: Charity Gan Special Medications: None Specimen's removed: Fifth metatarsal, right foot, half to pathology half to microbiology Drains: None Estimated Blood Loss (mL): 80 mL Fluids Replaced: Per anesthesia Description of Procedure: Indications For Operation: Ms. Givens is a 33-year-old diabetic female who was admitted to [facility] for for elective transmetatarsal amputation with musculocutaneous flap closure. Patient is well-known to my office and had surgical consultation regarding the procedure that will be done today. Patient has a past history of gas gangrene, osteomyelitis to the fifth metatarsal, reoccurrence of gas gangrene with incision and drainage and delayed primary closure to the right foot. Due to chronicity of the patient's full-thickness ulceration which has healed to the bottom of the right foot the patient elected to move forward with transmetatarsal amputation since she has a history of recurrent infection to the distal foot. Patient has already undergone delayed primary closure from a previous wound with tendo Achilles lengthening to the right lower extremity. Again, due to the nature of her recurrent infection as well as gas gangrene she would like to electively move forward with transmetatarsal amputation and musculocutaneous flap closure of the right lower extremity to help prevent any further breakdown of her right foot. The nature of the problem, anticipated procedures, postop recovery/convalences and risk/complications include but not limited to infection, wound healing complications, hypertrophic scarring, numbness, tingling, chronic pain, CRPS, over and under correction, recurrence of deformity, DVT and or PE and the need for further surgery have been discussed in great detail with the patient. All questions have been answered to the patient's satisfaction. There are no guarantees given as to the outcome of the procedure. Description of Procedure: Under mild sedation, the patient was brought into the operating room and placed on the operating table in supine position. Once the patient was under general anesthesia with laryngeal mask airway, the right lower extremity was blocked using approximately 20 cc 0.5% Marcaine plain. Next, a well-padded thigh tourniquet was applied to the right lower extremity. Next, the right lower extremity was prepped and draped in normal aseptic manner. Next, a timeout was then undertaken verifying the correct patient, extremity, visibility of preoperative markings, availability of the equipment. Next, using a 4 inch Esmarch the right lower extremity was exsanguinated and elevated to 60 degrees for approximately 1 minute with inflation of the thigh tourniquet to the right lower extremity to 275 mmHg. Procedure #1, transmetatarsal amputation, right foot Next, using a mini C arm fluoroscopy, attention was directed to the right foot for incision placement. Using the mini C-arm fluoroscopy and a Bentley the incisions were marked out at approximately mid diaphysis to the first metatarsal and remaining diaphysis of the fifth metatarsal of the right foot. Using a sterile skin marker a trapdoor type incision was marked out. Next, using a 10 blade, a full-thickness incision down to bone via trapdoor type incision was carried out from lateral to medial dorsally, and down and around the plantar aspect of the remaining digits. Continue sharp dissection was carried down distally across the metatarsals until the metatarsophalangeal joints were identified. Next, using a 15 blade continued dissection was carried down through the metatarsals until the remaining digits were all removed in 1 piece. The specimen was sent to the back table to be sent off for pathology for gross identification. Using a saucedo elevator, blunt dissection was carried along the remaining metatarsals to free up the periosteum. Using a sagittal saw and #111 blade, the metatarsal parabola was reconstructed. The length of the metatarsals were fine-tuned using careful clinical judgment as well as mini C arm fluoroscopy. After removal of some of the remaining fifth metatarsal there showed evidence of possible periosteal reaction, which the fifth metatarsal bone was removed and half was sent to pathology and half was sent to microbiology for culture and sensitivity. Next, the medullary canals of the metatarsals were cored out using a small curette. Next, all remaining tendons were identified stretched and removed and passed the back table to be discarded. Undermining was done dorsally across the metatarsals to allow for advancement closure of this tissue. The trapdoor type incision/transmetatarsal amputation was flushed with copious sabina of warm saline. The right thigh tourniquet was deflated and reperfusion was noted to the right lower extremity. All bleeders were ligated, cauterized and hand tied as needed. Using PinkelStar vancomycin cement, the medullary canals of metatarsals 1 through 5 were backfilled. Once the cement dried, the incision was flushed with copious amount of warm normal saline. The remaining vancomycin powder was sprinkled throughout the musculocutaneous flap and remaining metatarsals. Procedure #2, musculocutaneous advancement flap, right foot Once the musculocutaneous flap was meticulously prepared with removal of all exposed tendons and subcutaneous tissue, the inferior aspect of the metatarsals was bluntly dissected to allow for further advancement of the musculotendinous flap. The right lower extremity musculotendinous flap was advanced from inferior to superior, and showed to be coapting well with the dorsal skin. The subcutaneous layer on the flap and dorsal subcutaneous tissue was reapproximated using 2-0 Vicryl in buried suture technique. The dermis of the musculotendinous flap and dorsal skin was reapproximated using 2-0 Vicryl in buried suture technique. The skin was advanced and reapproximated and closed using jessica. The right lower extremity was wiped clean and patted dry. Skin-Prep was applied to the dorsum and plantar skin, followed by half-inch Steri-Strips to allow for a more robust closure across the skin. The incision was dressed with Betadine soaked Adaptic, 4 x 4's, Kerlix and a single layer Eldridge posterior splint was applied at 90 degrees to the right lower extremity. The patient tolerated the procedure and anesthesia well and apparent satisfactory condition and was transported to the PACU for further monitoring prior to discharge home. Vital signs stable and vascular status intact to all digits bilateral. Post Operative Plan: Weightbearing: Nonweightbearing right lower extremity. Full weightbearing left lower extremity. Antibiotics: 2 g Ancef through the IV DVT Prophylaxis: Aspirin 81 mg twice daily [place]: None Dressing: Half-inch Steri-Strips, Betadine soaked Adaptic, dry sterile dressing single layer Eldridge compression splint at 90 degrees. X-Rays: Post-operative films taken on the operating room. Pain Medication: Percocet 5/325. Flexeril 10 mg 3 times daily Follow-up: Follow-up with Dr. Forrest 1 week postop in private office. Grafts/Implants Used: Vancomycin antibiotic cement Complications None Admit VTE Documentation VTE Present on Admission: No VTE Mechan Device Prophylaxis: SCD's VTE Pharm Prophylaxis ordered?: No
[2023-07-23] MEDS: Cefazolin 2 GM in 0.9% Normal Saline (100mL Bag) 100 ML IV (09:06)
[2023-07-23] MEDS: Bupivacaine Mpf 0.5% 30 ML VIAL (09:24)
[2023-07-23 09:43] LABS: Bedside Glucose 174 mg/dL (74-106)
[2023-07-23] MEDS: Vancomycin IV 1,000 MG/20 ML Vial 1000 MG OPERA.SITE (09:43)
[2023-07-23 10:57] VITALS: BP 116/87; BP 122/86; PULSE 82; RESP 18; TEMP 36.2; O2SAT 100
[2023-07-23 11:00] VITALS: BP 116/87; BP 122/86; PULSE 80; RESP 14; O2SAT 99
[2023-07-23 11:05] VITALS: BP 116/87; BP 120/82; PULSE 82; RESP 12; O2SAT 99
[2023-07-23] MEDS: Insulin Lispro 100 UNIT/ML INSULN.PEN SC (11:15)
[2023-07-23 11:20] LABS: Bedside Glucose 204 mg/dL (74-106)
[2023-07-23 11:30] VITALS: BP 116/87; BP 117/82; PULSE 80; RESP 16; TEMP 36.1; O2SAT 99
[2023-07-23 12:14] VITALS: BP 116/87
== END 2023-07-23 13:27 | disposition home or self-care (01) ==
LOC: SDC 08:13 → AC 08:14
PROVIDERS: Anesthesiology; Referring Provider Podiatrist Foot & Ankle Surgery; Visit Provider Podiatrist Foot & Ankle Surgery
PROC: (CPT 28805; principal; 2023-07-23 08:45)
DX: E11.69 Type 2 diabetes mellitus with other specified complication (principal); E11.621 Type 2 diabetes mellitus with foot ulcer; L97.412 Non-pressure chronic ulcer of right heel and midfoot with fat layer exposed; M86.171 Other acute osteomyelitis, right ankle and foot; M86.671 Other chronic osteomyelitis, right ankle and foot; E11.42 Type 2 diabetes mellitus with diabetic polyneuropathy; F17.200 Nicotine dependence, unspecified, uncomplicated; E55.9 Vitamin D deficiency, unspecified; J45.909 Unspecified asthma, uncomplicated
CPT/HCPCS: 28805; 15738; 64445; 01480; 87205; 36415; 73630; 76000; 81025; 82962; 83735; 87015; 87070; 87075; 87077; 87081; 87102; 87116; 87206; 88305; 88307; 88311; C1713; J7120; J2405; J3475

== ENCOUNTER → 2023-11-08 | Outpatient (CLI) | payer MEDICAID, SELFPAY ==
--- NOTE | 2023-11-08 12:30 | MRI_ITS ---
EXAM: MR RIGHT LOWER EXTREMITY WITHOUT INTRAVENOUS CONTRAST, ANKLE CLINICAL INDICATION: ACHILLES TENDON TEAR TECHNIQUE: Multiplanar and multisequence MR images of the right ankle without intravenous contrast. COMPARISON: No relevant prior studies available. FINDINGS: LIGAMENTS: ANTERIOR TALOFIBULAR: Not seen and therefore is probably a chronically disrupted. POSTERIOR TALOFIBULAR: Unremarkable. Intact. ANTERIOR TIBIOFIBULAR: Unremarkable. Intact. POSTERIOR TIBIOFIBULAR: Unremarkable. Intact. CALCANEOFIBULAR: Unremarkable. Intact. DELTOID: Unremarkable. Intact. SPRING: Unremarkable. Intact. LISFRANC: Unremarkable. Intact. TENDONS: ACHILLES: Disrupted Achilles tendon with retraction of the proximal aspect resulting in a gap of approximately 5 cm with failure occurring approximately 5.9 cm proximal to the most distal calcaneal attachment of Achilles tendon. The distal and proximal ends are of the torn tendon are thickened. FLEXOR: Unremarkable. Intact. EXTENSOR: Unremarkable. Intact. PERONEAL: Unremarkable. Intact. TIBIALIS ANTERIOR: Unremarkable. Intact. TIBIALIS POSTERIOR: Unremarkable. Intact. MUSCLES: Unremarkable. Normal bulk and signal. FLUID: Small posterior subtalar joint effusion. SINUS TARSI: Unremarkable. Normal fat in the sinus tarsi. TARSAL TUNNEL: Unremarkable. PLANTAR FASCIA: Thickened central cord of the plantar aponeurosis with areas of adjacent fluid signal, potentially representing active plantar fasciitis. Correlate for clinical significance. CARTILAGE: Unremarkable. No osteochondral lesion. Articular cartilage intact. BONES/JOINTS: Evidence of prior amputation at the level of the metatarsal bases. Nonfused os trigonum. Several tarsometatarsal articulations show up to moderate degenerative changes. Talar dome intact. No fracture or marrow edema. OTHER SOFT TISSUES: Unremarkable. MRI/Lower Ext Joint Only (Routine) IMPRESSION: 1. Disruption of the Achilles tendon. 2. Possible plantar fasciitis involving the central cord. 3. 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 Electronically Signed: Perico Olguin MD at 22:18 EDT ,
== END | disposition home or self-care (01) ==
LOC: MRI 11:57
PROVIDERS: Referring Provider Podiatrist Foot & Ankle Surgery; Visit Provider Podiatrist Foot & Ankle Surgery
DX: S86.001A Unspecified injury of right Achilles tendon, initial encounter (principal); X58.XXXA Exposure to other specified factors, initial encounter
CPT/HCPCS: 73721

== ENCOUNTER → 2023-12-16 | Outpatient (CLI) | payer MEDICAID, SELFPAY ==
[2023-12-16 17:21] LABS: Absolute Lymphocyte Count 4.16 X10^3/uL (0.83-4.51); Absolute Neutrophil Count 6.6 X10^3/uL (2.0-7.7); Basophil# 0.09 X10^3/uL; Basophil% 0.8 % (0-1); Eosinophil# 0.11 X10^3/uL; Eosinophils% 0.9 % (0-5); Hematocrit 41.4 % (37-47); Hemoglobin 13.1 g/dL (12.0-15.0); Lymphocyte # 4.16 X10^3/ul (0.83-4.51); Lymphocyte % 35.7 % (19-41); Mean Corp Hgb Conc 31.6 g/dL (32-36); Mean Corpuscular Hgb 25.9 pg (27.0-32.0); Mean Platelet Vol. 9.9 fl (6.2-12.0); Monocyte# 0.62 X10^3/uL; Monocyte% 5.3 % (0-10); NRBC Flagged by Analyzer 0 % (0-5); Neutrophil # 6.56 X10^3/uL (2.7-7.7); Neutrophil % 56.4 % (47-70); Platelet Count 392 K/mm3 (150-450); RBC Distribution Width CV 14.3 % (11.6-14.6); RBC Distribution Width SD 41.8 fl (35.1-43.9); Red Blood Count 5.05 M/mm3 (4.2-5.4); White Blood Count 11.7 K/mm3 (4.4-11.0)
[2023-12-16 17:26] LABS: Vitamin D,25 Hydroxy 8.5 ng/mL
[2023-12-16 17:27] LABS: ALB/GLOB Ratio 0.7 RATIO (0.9-2.4); AST(SGOT) 17 U/L (15-37); Alanine Aminotransfer ALT/SGPT 21 U/L (13-56); Albumin, Serum 3.5 g/dL (3.2-5.0); Alkaline Phosphatase 93 U/L (45-117); Anion Gap 7 (5-15); BUN 11 mg/dL (7-18); BUN/Creat Ratio 12.1 RATIO (10-20); Calcium,Total 9.2 mg/dL (8.5-10.1); Chloride 106 mmol/L (98-107); Creatinine, Serum 0.91 mg/dL (0.55-1.02); EST Glomerular Filtration Rate 76 mL/min (>60); Est Glom Filt Rate - Afr Amer 92 mL/min (>60); Glucose 131 mg/dL (74-106); Potassium 4.2 mmol/L (3.5-5.1); Protein, Total 8.5 g/dL (6.4-8.2); Sodium Level 135 mmol/L (136-145)
[2023-12-17 16:39] LABS: Hemoglobin A1c 8.3 % (3.8-5.6)
[2023-12-23 01:07] LABS: Cotinine Screen Blood 41.2 ng/mL (.); Nicotine Blood <1.0 ng/mL (.)
== END | disposition home or self-care (01) ==
LOC: LABSPEC 13:57
PROVIDERS: Podiatrist Foot & Ankle Surgery; Visit Provider Nurse Practitioner Family
DX: E11.8 Type 2 diabetes mellitus with unspecified complications (principal); E55.9 Vitamin D deficiency, unspecified; F17.210 Nicotine dependence, cigarettes, uncomplicated
CPT/HCPCS: 80323; 36415; 80053; 82306; 83036; 85025; G0480

== ENCOUNTER 2023-12-24 05:45 | Day surgery (SDC) | payer MEDICAID, SELFPAY ==
[2023-12-24] VITALS (8 sets, daily range): BP systolic 94–129; BP diastolic 63–83; PULSE 87–105; RESP 16; TEMP 36.4–36.6; O2SAT 94–100; BMI 39.1
[2023-12-24 06:23] LABS: Internal QC Validated? YES +Cl - CLEAR BKGD; Pregnancy, Urine Negative Negative
[2023-12-24] MEDS: Lactated Ringers 1,000 ML 15 ML IV (06:36)
[2023-12-24 06:55] LABS: Bedside Glucose 167 mg/dL (74-106)
--- NOTE | 2023-12-24 07:21 | PRE.ANES_ITS ---
ASA Classification* ASA Classification ASA Classification: 3 Assessment & Plan Anesthesia* Anesthesia Assessment Anesthesia Assessment: Discussed sedation and/or anesthesia options, risks, benefits, and alternatives with patient/parents/legal guardian/POA. Questions invited. The patient/parents/legal guardian/POA seems to understand and agrees to proceed with anesthesia plan. Reviewed the physical assessment, medical history, allergy history and patient home medications list prior to surgery/procedure/anesthetic and documented any changes. Performed airway and anesthesia risk assessments. 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 When Was Last Pacemaker Check QUESTION #4 FULL TEXT: You/Your Family Experience fever (hyperthermia) with Anesthesia Last Oral Intake Last Oral intake: Last Oral Intake NPO since 19:00 12/24/23 06:14 Meds taken in AM with sips of No 12/24/23 06:14 water? Meds patient instructed to take am of surgery PONV PONV - metal building assembler: PONV - metal building assembler Female Yes 12/20/23 14:07 HX of Motion Sickness No 12/20/23 14:07 HX of N/V After Surgery No 12/20/23 14:07 Non-Smoker No 12/20/23 14:07 Duration of Surgery greater Yes 12/20/23 14:07 than 60 minutes Number of Risk Factors 2 12/20/23 14:07 PONV Score Moderate Risk 12/20/23 14:07 Height & Weight Height & Weight: Anesthesia: Height & Weight Height 5 ft 6 in 12/24/23 06:14 Weight: 109.951 kg 12/24/23 06:14 Body Mass Index (BMI) 39.1 12/24/23 06:14 Respiratory Assessment Respiratory Assessment - metal building assembler: Respiratory Tract Infection Hx - metal building assembler Hx Respiratory Tract Infection No 12/20/23 14:07 STOP Sleep Apnea STOP Sleep Apnea - metal building assembler: STOP Sleep Apnea - metal building assembler Hx Hypertension No 12/20/23 14:07 Hx Sleep Apnea No 12/20/23 14:07 CPAP BIPAP Do you snore loudly (louder No 12/20/23 14:07 than talking or can be heard Do you often feel tired/ No 12/20/23 14:07 fatigued/ sleepy during daytime? Has anyone observed you stop No 12/20/23 14:07 breathing during sleep? STOP Results Negative 12/20/23 14:07 QUESTION #5 FULL TEXT : Do you snore loudly (louder than talking or can be heard through closed doors)? Tobacco Use History Tobacco Use History - metal building assembler: Tobacco Use History - metal building assembler Tobacco Use Smoking Status Current every day smoker 12/20/23 14:07 Hx Tobacco Use Yes 12/20/23 14:07 Years Smoking Packs Smoked per Day Smoking Cessation Date was within the last 15 years Hx Smoking Cessation Date Hx Smoking Cessation No 12/20/23 14:07 Counseling Hematologic Medial History Hematologic Hx - metal building assembler: Hematologic Medical Hx - imaging system administrator Hx of Blood Transfusion No 12/20/23 14:07 Hx of Transfusion in last 3 No 12/20/23 14:07 Months Date of Last Transfusion (if within last 3 months) Ever experience any problems No 12/20/23 14:07 with transfusion(s)? Specify any problems Hx of Preganancy in last 3 No 12/20/23 14:07 Months Nurse Filling Out Transfusion MGRIFFITH 12/20/23 14:07 & Questions: Date: 12/20/23 12/20/23 14:07 Time: 14:09 12/20/23 14:07 Patient unable to answer at this time (ie. confused, unrespo /Reproduction History /Reproductive History - metal building assembler: /Reproductive Hx- metal building assembler Hx Now No 12/20/23 14:07 Gestational Age (in weeks): EDC: Hx Hx Para Hx Section SAB No 12/20/23 14:07 Active Medications Active Medications: Current Medications Generic Name Dose Route Start Last Admin Trade Name Freq PRN Reason Stop Dose Admin Cefazolin Sodium 2 gm/ Sodium 110 mls @ 150 mls/hr 12/24/23 07:30 Chloride IV 12/24/23 08:13 PREOP ONE Lactated Ringer's 1,000 mls @ 15 mls/hr 12/24/23 06:15 12/24/23 06:36 IV 15 mls/hr .Q48H SKYLER Administration Anesthesia Focused Assessment* Temperature: 97.5 F Pulse Rate: 105 Blood Pressure: 129/83 Respiratory Rate: 16 Pulse Ox: 100 Airway Assessment Mouth opens: >3 cm Mallampati Score: III Focused Labs Anesthesia Preop lab: CBC WBC 11.7 K/mm3 (4.4-11.0) H 12/16/23 13:59 RBC 5.05 M/mm3 (4.2-5.4) 12/16/23 13:59 Hgb 13.1 g/dL (12.0-15.0) 12/16/23 13:59 Hct 41.4 % (37-47) 12/16/23 13:59 Plt Count 392 K/mm3 (150-450) 12/16/23 13:59 CHEMISTRY Potassium 4.2 mmol/L (3.5-5.1) 12/16/23 13:59 Sodium 135 mmol/L (136-145) L 12/16/23 13:59 Magnesium 2.0 mg/dL (1.6-2.6) 07/16/23 09:35 BUN 11 mg/dL (7-18) 12/16/23 13:59 Creatinine 0.91 mg/dL (0.55-1.02) 12/16/23 13:59 Glucose 131 mg/dL (74-106) H 12/16/23 13:59 TSH 2.30 uIU/mL (0.358-3.74) 01/15/23 05:40 COAG PT 14.8 SECONDS (11.7-14.9) 03/06/23 09:10 HCG, Quant < 1 mIU/mL (1-3) 10/29/21 09:35 Urine Test Negative Negative 12/24/23 06:10 Review of Systems (Anesthesia) ROS Narrative System reviewed and no additional complaints, except as documented. [facility] Medical History Wears glasses History of MRSA infection Borderline personality disorder Alcohol use Insulin dependent diabetes mellitus Dietary restriction Heartburn Smoker Shortness of breath on exertion Leg cramps Type 2 diabetes mellitus with peripheral neuropathy Neuropathy, diabetic Elevated serum creatinine Failure of outpatient treatment Nausea and vomiting Diabetes mellitus with diabetic polyneuropathy Type 2 diabetes mellitus with foot ulcer Anxiety Depression Constipation Asthma Diabetes Home Medications ?Medication ?Instructions ?Recorded ?Last Taken ?Type insulin glargine 100 unit/mL (3 20 unit subcut BID diabetes 08/12/22 06/25/23 History mL) subcutaneous pen (Lantus Solostar U-100 Insulin) fiber 1 tab PO DAILY 07/16/23 Unknown History trazodone 300 mg tablet 200 mg PO QHS PRN insomnia 07/16/23 Unknown History ascorbic acid (vitamin C) 1,000 mg 1 g PO DAILY 90 days #90 tabs 07/23/23 Unknown Rx tablet (Vitamin C) calcium carbonate 500 mg-vitamin 1 tab PO DAILY 90 days #90 tabs 07/23/23 Unkn own Rx D3 15 mcg (600 unit) tablet (Os-[place] 500 + D3) cyclobenzaprine 10 mg tablet 10 mg PO TID 7 days #21 tabs 07/23/23 Unknown Rx aspirin 81 mg tablet,delayed 81 mg PO DAILY PRN 12/20/23 Unknown History release docusate sodium 100 mg capsule 100 mg PO DAILY PRN constipation 12/20/23 Unknown History (Colace) dulaglutide 1.5 mg/0.5 mL 1.5 mg subcut WE DIABETES 12/20/23 Unknown History subcutaneous pen injector (Trulicity) Allergy/AdvReac Type Severity Reaction Status Date / Time No Known Allergies Allergy Verified 12/20/23 14:00 Family History Other Bleeding disorder Cancer Diabetes Hypertension Surgical History Hx of foot surgery Hx of foot surgery Social History Smoking Status: Current every day smoker tobacco type: cigarettes alcohol intake: never substance use type: does not use what type of physical activity do you participate in: none
--- NOTE | 2023-12-24 07:23 | PCM.OPRPT ---
Problems Associated Problem List Diagnoses (1) Injury of right Achilles tendon: (2) Non-pressure chronic ulcer of other part of right foot with fat layer exposed: (3) Acute painful diabetic polyneuropathy: Report of Operation Date of Procedure: 12/24/23 Pre-Operative Diagnosis: 1. Achilles tendon rupture, right lower extremity 2. Nonpressure ulcer, right foot 3. Diabetes type 2 with peripheral neuropathy Post-Operative Diagnosis: 1. Achilles tendon rupture, right lower extremity 2. Nonpressure ulcer, right foot 3. Diabetes type 2 with peripheral neuropathy Surgery/Procedure Performed:: 1. Acute Achilles tendon debridement and repair, right lower extremity 2. Flexor hallucis longus tendon transfer, right lower extremity 3. Surgical skin graft site prep, right foot 4. Application of skin graft substitute, right foot Description of Surgical Findings:: 1. Evidence of 5 cm rupture along the right Achilles tendon 2. Successful flexor hallucis longus tendon transfer 3. End-to-end anastomosis of ruptured Achilles tendon right lower extremity. 4. Prior to surgical case positive Carl test. After repair of Achilles tendon negative Carl test. Surgeon: Stephan Forrest mid level game designer: Orlando Muñoz Type of Anesthesia: Block,Regional and General Anesthesiologist: Rickey Mo Special Medications: Per anesthesia Specimen's removed: 1. Drains: None Estimated Blood Loss (mL): 30 mL Fluids Replaced: Per anesthesia Description of Procedure: Indications For Operation: Ms. Givens is a 33-year-old diabetic female who was admitted to [facility] for repair of Achilles tendon rupture of the right lower extremity. Patient was seen in the office for surgical consultation with chart review and consent signed. All risk and benefits were discussed with the patient great detail. Patient did have an MRI prior to the procedure that showed evidence of a 5 cm Achilles tendon tear of the right lower extremity. Due to the nature of the rupture it was educated with the patient that she will need either conservative versus surgical repair, patient elected for surgical repair of her right lower extremity. Due to size of the rupture and the need for surgery it had been deemed necessary at this time to take the patient to the operating room to perform the above procedure to help heal her rupture tendon and help heal her wound to the plantar aspect of her right calcaneus 2/2 calcaneal git. The nature of the problem, anticipated procedures, postop recovery/convalences and risk/complications include but not limited to infection, wound healing complications, digital amputation, hypertrophic scarring, numbness, tingling, chronic pain, CRPS, over and under correction, recurrence of deformity, DVT and or PE and the need for further surgery have been discussed in great detail with the patient. All questions have been answered to the patient's satisfaction. There are no guarantees given as to the outcome of the procedure. Description of Procedure: Under mild sedation, the patient was brought into the operating room and placed on the operating table in supine position. Once the patient was under general anesthesia with laryngeal mask airway, the right lower extremity was blocked via popliteal block per anesthesia followed by 10 cc of 0.5% Marcaine plain to the saphenous nerve, right lower extremity. Next, a well-padded thigh tourniquet was applied to the right lower extremity. Next, the right lower extremity was prepped and draped in normal aseptic manner. Next, a timeout was then undertaken verifying the correct patient, extremity, visibility of preoperative markings, availability of the equipment. Next, attention was directed to the right lower extremity. Using a 6 inch Esmarch, right lower extremity was exsanguinated and elevated to 60 degrees for 1 minute. Procedure #1: Acute Achilles tendon debridement and repair, right lower extremity (CPT code: 29784) Next, attention was directed to the posterior aspect of the right lower extremity at the level of the Achilles tendon. There was evidence of a palpable dell as well as a positive Carl test on the operating room table. Using a sterile skin marker a posterior medial incision was marked out encompassing the palpable dell. Next, using a #15 blade, a full-thickness incision down to subcutaneous tissue was performed. Continued blunt dissection was carried down to the peritenon. The peritenon was identified and incised and marked for later for closure. Continued blunt dissection was carried down and around the Achilles tendon as well as around the rupture. There showed evidence of approximately 5 cm rupture proximal to the Achilles tendon insertion. A section of the Achilles tendon was taken and passed the back table to be sent off for pathology for identification. The rupture was identified and debrided. Using Arthrex fiber tape a modified Bennell stitch was applied to the proximal and distal ends of the Achilles tendon and will be saved for later for repair after the FHL tendon transfer. The area was flushed with copious amounts normal saline. Procedure #2: Flexor hallucis longus tendon transfer, right lower extremity (CPT code: 36379) Next, continue blunt dissection was carried down through Kagers triangle to the posterior ankle. The FHL tendon was identified and transected with the foot in a plantarflexion fashion. The tendon was whipstitched and sized for a 6.0 x 15 mm citrelock anchor. The guidewire was placed from the superior to inferior aspect of the calcaneus. The depth of the anchor was reamed to approximately 20 to 25 mm. Using the guide hole on the guidewire the FHL tendon was passed through the guide hole through the calcaneus. The FHL was tensioned and held in place with Gabby hemostat. Range of motion of the ankle was performed and there showed to be good tension. Using a mallet with the anchor the anchor was malleted in place and fixated per the special services coordinator's recommendation. Next the 2 portions of the Achilles tendon were reapproximated and hand tied in place. There showed evidence of plantarflexion of the right lower extremity on the operating room table with great tension with range of motion of the ankle. The area was flushed with copious sabina normal saline. The tendon was repaired with additional fiber wire. Two 3.5 x 15.5 mm citrelock anchors were placed on the medial and lateral sides of the posterior calcaneus and placed per the special services coordinator's recommendation. Using a free needle the free ends of the bookshelf Achilles tendon were secured with fiber tape and anchors. The free ends of the Achilles tendon were then hand tied and held in place over the 2 citrelock anchors. The area was flushed with copious amounts of normal saline. At this time the tourniquet was deflated and reperfusion was noted to the right lower extremity. All bleeders were ligated and cauterized as necessary. The peritenon was reapproximated and closed with 4-0 Monocryl and running locking suture technique. The subcutaneous layer was reapproximated and closed with 3-0 Monocryl in running suture technique. The skin was reapproximated and closed with 4-0 Stravix suture in running suture technique. The incision was wiped clean and patted dry. Quarter inch Steri-Strips were applied for additional skin closure. Procedure #3: Surgical skin graft site prep, right foot (CPT code: 24642) Next, attention was directed to the full-thickness ulceration to the plantar heel. Surgical skin graft site prep via excisional debridement down to and including subcutaneous tissue with a rongeur was done without incident. Predebridement measurement was callus. Postdebridement measurement was 0.5 x 0.5 x 0.3 cm. After debridement the wound base was 100% granular in nature. The full-thickness ulceration was wiped clean and patted dry. Procedure #4: Application of skin graft substitute, right foot (CPT code: 46984) Next, application of 2 x 4 cm BioSkin skin graft substitute was applied to the full-thickness ulceration to the plantar heel. The right lower extremity was wiped clean and patted dry. The skin graft substitute was held in place with Adaptic Steri-Strips and dry sterile dressing. A 2 layer Eldridge AO splint was applied to the right lower extremity in plantarflexion fashion. The patient tolerated the procedure and anesthesia well and apparent satisfactory condition and was transported to the PACU for further monitoring prior to discharge home. Vital signs stable and vascular status intact to all digits bilateral. Post Operative Plan: Weightbearing: No weightbearing to right lower extremity. Full weightbearing to left lower extremity. Antibiotics: 2 g Ancef through the IV DVT Prophylaxis: 81 mg aspirin daily De La Rosa: None Dressing: Adaptic, Steri-Strips, Betadine soaked Adaptic to the incision, dry sterile dressing 2 layer AO splint right lower extremity in plantarflexion. X-Rays: Post-operative films taken on the operating room. Pain Medication: 5/325 Percocet Follow-up: Patient will follow-up in [address] Forrest in private office for evaluation. Grafts/Implants Used: 1. 6 x 15 mm citrelock anchor, 2. (x2) 3.5 x 15.5 mm citrelock anchor Complications None Admit VTE Documentation VTE Present on Admission: No VTE Mechan Device Prophylaxis: SCD's VTE Pharm Prophylaxis ordered?: Yes
--- NOTE | 2023-12-24 07:30 | TESH_PTH ---
PATIENT: SHOLA PATTON LOC: [facility] U#:[id number] AGE/SX: 33/F ROOM: RE12/24/[address]: Dr. Stephan Forrest DPM : 1990 BED: DIS: 12/24/2023 SPEC #: [id number] RECD: 12/24/23 10:50 STATUS: LISA LORRI #: [id number] NEISHA: 12/24/23 07:[address]: Stephan Forrest DEPT: SURGICAL PATHOLOGY RECD BY: Romanie Calvillo ENTERED: 12/24/23 12:34 SP TYPE: TENDON OTHR DR: Sophy [facility] Tissues: Tendon and tendon sheath, NOS Procedures: Surgery Specimen Level III HEADER OPERATION: Achilles tendon debridment/repair with flexor hallucis PRE-OP DIAGNOSIS: Injury of right achilles tendon, osteomyelitis of right foot and ankle TISSUE SUBMITTED: Tenosynovitis right achilles MICROSCOPIC DIAGNOSIS Right Achilles tendon, excison: Fibrotendionis and fibrofatty tissue with chronic inflammation. LAWANDA/ 12/27/2023 MICROSCOPIC DESCRIPTION Slides are reviewed. GROSS DESCRIPTION Received in fixative is one container labeled with the patient's name and designated tenosynovitis right achilles. The specimen consists of multiple fragments of arevalo indurated tendinous tissue mixed with soft tissue measuring in aggregate 5.5 x 2.5 x 1.0cm. No mass lesion is identified. Shake Maker sections are submitted in one cassette. TERESITA/ 12/24/2023 TC:3 CPT:26928
[2023-12-24] MEDS: Cefazolin 2 GM in 0.9% Normal Saline (100mL Bag) 100 ML IV (07:32)
--- NOTE | 2023-12-24 07:53 | RAD_ITS ---
STUDY: X-RAY - RIGHT ANKLE REASON FOR EXAM: Female, 33 years old. Intraoperative Achilles tendon debridement and repair. TECHNIQUE: 1 view(s) of the ankle. COMPARISON: None. FINDINGS: Intraoperative imaging provided for debridement and repair of the Achilles tendon. RAD/Ankle 2 Views IMPRESSION: Intraoperative imaging provided for debridement and repair of the Achilles tendon. Electronically Signed: Bernard Sadler MD at 13:44 EDT ,
[2023-12-24] MEDS: Bupivacaine Mpf 0.5% 30 ML VIAL (09:38)
--- NOTE | 2023-12-24 09:57 | PCM.POST.ANE ---
Anesthesia: Postop Eval I Current Vital Signs Temperature: 97.6 F Pulse Rate: 97 Blood Pressure: 102/78 Respiratory Rate: 16 Pulse Ox: 94 Oxygen Delivery Method: Room Air Assessment Airway patent: Yes Spontaneous unlabored respirations: Yes Mental status: Awake and Calm nausea: No Vomiting: No Anesthesia Complication: No Fluid Hydration Crystalloid volume administer (ml): 800 Total IV fluid infused: 800 Progress Note Anesthesia document: Postop Eval 1 completed: Yes
--- NOTE | 2023-12-24 10:29 | POSTOPAN2_ITS ---
Anesthesia Postop Eval I Sum Postop Eval Completion status Anesthesia document: Postop Eval 1 completed: Yes Anesthesia Postop Eval I Summary Anesthesia Postop Eval I Summary: Anesthesia Postop Eval I: Assessment Summary Airway patent Yes 12/24/23 09:58 FLOAT OPERATOR.[email or web address] Spontaneous unlabored Yes 12/24/23 09:58 FLOAT OPERATOR.VERAU respirations Mental status Awake,Calm 12/24/23 09:58 FLOAT OPERATOR.GALDINOLOU nausea No 12/24/23 09:58 FLOAT OPERATOR.GALDINOLOU Vomiting No 12/24/23 09:58 FLOAT OPERATOR.GALDINOLOU Anesthesia Postop Eval I: Fluid Summary Crystalloid volume administer 800 12/24/23 09:58 FLOAT OPERATOR.[email or web address] (ml) Colloids volume administered ( ml) Blood Product volume administered (ml) Total IV fluid infused 800 12/24/23 09:58 FLOAT OPERATOR.GALDINOLOU Anesthesia Postop Eval I: Summary Notes Anesthesia Complication No 12/24/23 09:58 FLOAT OPERATOR.KAROLINA Anesthesia Complication Comment: Post-operative progress note Anesthesia: Postop Eval II Evaluation Mental status: Awake Pain Level: 0 nausea: No Vomiting: No Complications Anesthesia Complication: No
--- NOTE | 2023-12-24 10:29 | PCM.POSTANE2 ---
Anesthesia Postop Eval I Sum Postop Eval Completion status Anesthesia document: Postop Eval 1 completed: Yes Anesthesia Postop Eval I Summary Anesthesia Postop Eval I Summary: Anesthesia Postop Eval I: Assessment Summary Airway patent Yes 12/24/23 09:58 BIOMETRICS SPECIALIST.[email or web address] Spontaneous unlabored Yes 12/24/23 09:58 BIOMETRICS SPECIALIST.VERAU respirations Mental status Awake,Calm 12/24/23 09:58 BIOMETRICS SPECIALIST.GALDINOLOU nausea No 12/24/23 09:58 BIOMETRICS SPECIALIST.GALDINOLOU Vomiting No 12/24/23 09:58 BIOMETRICS SPECIALIST.GALDINOLOU Anesthesia Postop Eval I: Fluid Summary Crystalloid volume administer 800 12/24/23 09:58 BIOMETRICS SPECIALIST.JBLOU (ml) Colloids volume administered ( ml) Blood Product volume administered (ml) Total IV fluid infused 800 12/24/23 09:58 BIOMETRICS SPECIALIST.GALDINOLOU Anesthesia Postop Eval I: Summary Notes Anesthesia Complication No 12/24/23 09:58 BIOMETRICS SPECIALIST.KAROLINA Anesthesia Complication Comment: Post-operative progress note Anesthesia: Postop Eval II Evaluation Mental status: Awake Pain Level: 0 nausea: No Vomiting: No Complications Anesthesia Complication: No
== END 2023-12-24 10:59 | disposition home or self-care (01) ==
LOC: SDC 05:45 → AC 05:46
PROVIDERS: Anesthesiology; Referring Provider Podiatrist Foot & Ankle Surgery; Visit Provider Podiatrist Foot & Ankle Surgery
PROC: (CPT 27650; principal; 2023-12-24 07:15)
DX: S86.011A Strain of right Achilles tendon, initial encounter (principal); E11.621 Type 2 diabetes mellitus with foot ulcer; L97.412 Non-pressure chronic ulcer of right heel and midfoot with fat layer exposed; E11.42 Type 2 diabetes mellitus with diabetic polyneuropathy; Z79.4 Long term (current) use of insulin; X58.XXXA Exposure to other specified factors, initial encounter; E55.9 Vitamin D deficiency, unspecified; F17.210 Nicotine dependence, cigarettes, uncomplicated; Z79.85 Long-term (current) use of injectable non-insulin antidiabetic drugs; Z79.82 Long term (current) use of aspirin
CPT/HCPCS: 27652; 27691; 15271; 15002; 01472; 73600; 76000; 81025; 82962; 88304; C1713; J7120; J2405

== ENCOUNTER → 2024-04-25 | Outpatient (CLI) | payer MEDICAID, SELFPAY ==
[2024-04-25 17:11] LABS: Absolute Lymphocyte Count 4.36 X10^3/uL (0.83-4.51); Absolute Neutrophil Count 7.1 X10^3/uL (2.0-7.7); Basophil# 0.07 X10^3/uL; Basophil% 0.6 % (0-1); Eosinophil# 0.16 X10^3/uL; Eosinophils% 1.3 % (0-5); Hematocrit 41.6 % (37-47); Hemoglobin 13.1 g/dL (12.0-15.0); Lymphocyte # 4.36 X10^3/ul (0.83-4.51); Lymphocyte % 34.7 % (19-41); Mean Corp Hgb Conc 31.5 g/dL (32-36); Mean Corpuscular Hgb 26.3 pg (27.0-32.0); Mean Corpuscular Volume 83.5 fL (81-99); Mean Platelet Vol. 9.4 fl (6.2-12.0); Monocyte# 0.68 X10^3/uL; Monocyte% 5.4 % (0-10); NRBC Flagged by Analyzer 0 % (0-5); Neutrophil # 7.13 X10^3/uL (2.7-7.7); Neutrophil % 56.7 % (47-70); Platelet Count 368 K/mm3 (150-450); RBC Distribution Width CV 13.6 % (11.6-14.6); RBC Distribution Width SD 41.3 fl (35.1-43.9); Red Blood Count 4.98 M/mm3 (4.2-5.4); White Blood Count 12.6 K/mm3 (4.4-11.0)
[2024-04-25 17:35] LABS: ALB/GLOB Ratio 0.6 RATIO (0.9-2.4); AST(SGOT) 9 U/L (15-37); Alanine Aminotransfer ALT/SGPT 24 U/L (13-56); Albumin, Serum 3.3 g/dL (3.2-5.0); Alkaline Phosphatase 89 U/L (45-117); Anion Gap 7 (5-15); BUN 12 mg/dL (7-18); BUN/Creat Ratio 13.5 RATIO (10-20); Calcium,Total 9.1 mg/dL (8.5-10.1); Chloride 108 mmol/L (98-107); Cholesterol 209 mg/dL (200); Creatinine, Serum 0.89 mg/dL (0.55-1.02); EST Glomerular Filtration Rate 78 mL/min (>60); Est Glom Filt Rate - Afr Amer 95 mL/min (>60); Globulin 5.2 g/dL (2.2-4.2); Glucose 177 mg/dL (74-106); High Density Lipoprotein 37 mg/dL; Potassium 4.2 mmol/L (3.5-5.1); Protein, Total 8.5 g/dL (6.4-8.2); Sodium Level 137 mmol/L (136-145); Thyroid Stim Hormone (TSH) 0.825 uIU/mL (0.358-3.740); Triglycerides 227 mg/dL; Very Low Density Lipoprotein 45 mg/dL (5-40)
== END | disposition home or self-care (01) ==
PROVIDERS: PCP Nurse Practitioner Family; Visit Provider Nurse Practitioner Family
DX: E11.8 Type 2 diabetes mellitus with unspecified complications (principal)
CPT/HCPCS: 36415; 80053; 80061; 82043; 84443; 85025

== ENCOUNTER → 2024-10-17 | Outpatient (CLI) | payer MEDICAID, SELFPAY ==
[2024-10-17 12:59] LABS: Absolute Lymphocyte Count 3.16 X10^3/uL (0.83-4.51); Absolute Neutrophil Count 6.6 X10^3/uL (2.0-7.7); Basophil# 0.04 X10^3/uL; Basophil% 0.4 % (0-1); Eosinophil# 0.07 X10^3/uL; Eosinophils% 0.7 % (0-5); Hematocrit 39.5 % (37-47); Hemoglobin 12.8 g/dL (12.0-15.0); Lymphocyte # 3.16 X10^3/ul (0.83-4.51); Lymphocyte % 29.7 % (19-41); Mean Corp Hgb Conc 32.4 g/dL (32-36); Mean Corpuscular Hgb 26.6 pg (27.0-32.0); Mean Corpuscular Volume 82.1 fL (81-99); Mean Platelet Vol. 9.7 fl (6.2-12.0); Monocyte# 0.64 X10^3/uL; NRBC Flagged by Analyzer 0 % (0-5); Neutrophil # 6.62 X10^3/uL (2.7-7.7); Neutrophil % 62.2 % (47-70); Platelet Count 332 K/mm3 (150-450); RBC Distribution Width CV 14.1 % (11.6-14.6); RBC Distribution Width SD 41.9 fl (35.1-43.9); Red Blood Count 4.81 M/mm3 (4.2-5.4); White Blood Count 10.6 K/mm3 (4.4-11.0)
[2024-10-17 13:11] LABS: Microalbumin,Random Urine < 12.0 mg/L (NO RANGE EST.)
[2024-10-17 13:45] LABS: ALB/GLOB Ratio 0.9 RATIO (0.9-2.4); AST(SGOT) 18 U/L (<=31); Alanine Aminotransfer ALT/SGPT 12 U/L (<=34); Albumin, Serum 3.7 g/dL (3.5-5.0); Alkaline Phosphatase 93 U/L (35-104); Anion Gap 14 (5-15); BUN 12 mg/dL (4-19); BUN/Creat Ratio 14.4 RATIO (10-20); Calcium,Total 9.2 mg/dL (7.6-11.0); Carbon Dioxide 21.8 mmol/L (21.0-32.0); Chloride 99 mmol/L (98-108); Cholesterol 164 mg/dL (<=200); Creatinine, Serum 0.84 mg/dL (0.70-1.20); EST Glomerular Filtration Rate 95 (>60); Globulin 3.9 g/dL (2.2-4.2); Glucose 233 mg/dL (70-99); High Density Lipoprotein 37 mg/dL; Low Density Lipoprotein Calc. 70 mg/dL; Potassium 4.6 mmol/L (3.3-5.1); Protein, Total 7.5 g/dL (5.9-8.4); Sodium Level 135 mmol/L (133-145); Total Bilirubin 0.21 mg/dL (0.00-1.30); Triglycerides 287 mg/dL; Very Low Density Lipoprotein 57 mg/dL (5-40); Vitamin D,25 Hydroxy 10.7 ng/mL (30-100); cholesterol:hdl ratio screen 4.44
== END | disposition home or self-care (01) ==
LOC: VSLAB 09:11
PROVIDERS: PCP Nurse Practitioner Family; Visit Provider Nurse Practitioner Family
DX: E11.8 Type 2 diabetes mellitus with unspecified complications (principal); E55.9 Vitamin D deficiency, unspecified
CPT/HCPCS: 36415; 80053; 80061; 82043; 82306; 84443; 85025

== ENCOUNTER → 2024-10-25 | Outpatient (CLI) | payer MEDICAID, SELFPAY ==
--- NOTE | 2024-10-25 07:41 | VDLE_ITS ---
Reason For Study Reason For Study: Pain in legs RIGHT LEFT CFV is compressible, spontaneous, phasic, competent CFV is compressible, spontaneous, phasic, competent, and demonstrates normal augmentation. and demonstrates normal augmentation. FV is compressible, spontaneous, phasic, competent FV is compressible, spontaneous, phasic, competent and demonstrates normal augmentation. and demonstrates normal augmentation. POP V is compressible, spontaneous, phasic, competent POP V is compressible, spontaneous, phasic, competent and demonstrates normal augmentation. and demonstrates normal augmentation. T/P Trunk is compressible. T/P Trunk is compressible. PTV is compressible. PTV is compressible. RT PerV is compressible. LT PerV is compressible. SFJ is competent and measures 0.58 cm. SFJ is INCOMPETENT and measures 0.70 cm. GSV proximal thigh measures 0.49 x 0.48 cm. GSV proximal thigh measures 0.63 x 0.59 cm. GSV above knee is competent. GSV at knee measures 0.65 x 0.65 cm. GSV at knee measures 0.71 x 0.71 cm. GSV INCOMPETENT throughout for greater than 0.5 GSV below knee is INCOMPETENT for greater than 0.5 seconds. seconds. SSV mid calf is competent and measures 0.21 x 0.23 INCOMPETENT health safety specialist noted 8 cm above medial cm. maleolus. ASV proximal calf is INCOMPETENT for greater than 0.5 seconds and measures 0.34 x 0.30 cm. SSV mid calf is competent and measures 0.35 x 0.35 cm. Procedure This is a venous duplex using B-mode, color flow and spectral Doppler. Exam performed in department. Patient was scanned in reverse Trendelenburg position during reflux assessment. VL/Venous Duplex US - Tayo Extrem Interpretation Summary Deep veins of the lower extremities are bilaterally patent and compressible seg mentally. There is no evidence of deep vein thrombosis on either side. Valvular competence appears intact within the p roximal deep venous systems bilaterally. The great saphenous veins appear bilaterally patent and compressible segmentall y. The right sapheno-femoral junction is competent . The left sapheno-femoral junction is incompetent . The right great saphenous vein appears competent above the knee. The right great saphenous vein appears incompetent below the knee. Th e left great saphenous vein appears segmentally incompetent. Small saphenous veins are patent and competent bilater ally. The accessory saphenous vein in the right proximal calf is incompetent. An incompetent health safety specialist vein is noted in the right calf, located 8 centimeters proximal to the right medial malleolus. Ordering Physician: Stephan Forrest Referring Physician: Amy Dasilva Performed By: Saima De La Torre RVT
--- NOTE | 2024-10-25 08:46 | ART_ITS ---
Reason For Study Reason For Study: Carotid stenosis Procedure A bilateral lower extremity continuous wave Doppler with analog waveform analysis,segmental pressures,and ankle brachial indexes without exercise. Left Segmental Pressures Left brachial= 137mmHg. Left posterior tibial artery = 172mmHg. Left dorsalis pedis artery = 153mmHg. Left digit = 156 mmHg. The left dorsalis pedis waveforms are triphasic. The left posterior tibial artery waveforms are triphasic. Right Segmental Pressures Right brachial= 134mmHg. Right posterior tibial artery = 144mmHg. Right dorsalis pedis artery = 156mmHg. The right dorsalis pedis waveforms are triphasic. The right posterior tibial artery waveforms are triphasic. Indices The right ankle brachial index by the dorsalis pedis is 1.14. The right ankle brachial index by the posterior tibial artery is 1.05. The left ankle brachial index by the dorsalis pedis is 1.12. The left ankle brachial index by the posterior tibial artery is 1.26. The left digital-brachial index is 1.14. VL/Lower Ext Art Exam w/o Exercis Interpretation Summary Triphasic Doppler waveforms are noted at ankle level bilaterally. Pulse-volume recordings appear satisfactory at all levels bilaterally. Resting ankle-brachial indices are normal bilaterally. The left digital-brachial index is normal. Arterial status at digital level on the right was not assessed due to a partial foot amputation. There is no evidence of significant arterial occlusive disease in the lower ext remities bilaterally. Ordering Physician: Stephan Forrest Referring Physician: Amy Dasilva Performed By: Saima De La Torre RVT
== END | disposition home or self-care (01) ==
LOC: CVS 07:37
PROVIDERS: PCP Nurse Practitioner Family; Referring Provider Podiatrist Foot & Ankle Surgery; Visit Provider Podiatrist Foot & Ankle Surgery
DX: I73.89 Other specified peripheral vascular diseases (principal); M79.604 Pain in right leg; M79.605 Pain in left leg
CPT/HCPCS: 93923; 93970

== ENCOUNTER 2024-11-25 08:47 | Inpatient (IN) | payer MEDICAID, SELFPAY ==
[2024-11-25] VITALS (8 sets, daily range): BP systolic 109–130; BP diastolic 69–91; PULSE 85–112; RESP 16–20; TEMP 36–36.7; O2SAT 92–99; BMI 40.9; BMI 39.4
--- NOTE | 2024-11-25 09:27 | ED.VIS.GI ---
HPI HPI - GI History of Present Illness Chief Complaint: Constipation Narrative Narrative: 34-year-old female past medical history of diabetes states that she gets constipation frequently for years presents with abdominal pain and cramping as well as constipation that she has had for the last few days. She relates history that 3 days prior to her taking a laxative, she was having problems with not having a bowel movement. It was , 2 days ago when she took 4 Ex-Lax in the morning, and then that evening began having abdominal cramping. She states that she still feels like there is stool stuck but she is having multiple episodes of diarrhea and watery stool. She states that when she gets cramping, it still feels like she may have a fecal impaction. She is experienced nausea and vomiting over the last 24 hours multiple times but no hematemesis. Currently, she is only dry heaving. She did not take her insulin today because she took her blood sugar and it was only 190. Additionally, she has not been able to eat today because of the dry heaving. Her cramping in the abdomen is intermittent. She denies any previous abdominal surgeries, no reason to be obstructed. While she thinks she may have IBS-see, she has been unable to see gastroenterology to confirm this diagnosis. No exacerbating or alleviating factors. [facility] Medical History Wears glasses History of MRSA infection Borderline personality disorder Alcohol use Insulin dependent diabetes mellitus Dietary restriction Heartburn Smoker Shortness of breath on exertion Leg cramps Type 2 diabetes mellitus with peripheral neuropathy Neuropathy, diabetic Elevated serum creatinine Failure of outpatient treatment Nausea and vomiting Diabetes mellitus with diabetic polyneuropathy Type 2 diabetes mellitus with foot ulcer Anxiety Depression Constipation Asthma Diabetes Home Medications ?Medication ?Instructions ?Recorded ?Last Taken ?Type insulin glargine 100 unit/mL (3 20 unit subcut BID diabetes 08/12/22 11/25/24 History mL) subcutaneous pen (Lantus Solostar U-100 Insulin) trazodone 300 mg tablet 200 mg PO QHS PRN insomnia 07/16/23 Unknown History albuterol sulfate 90 mcg/actuation 2 puff inhalation Q4H PRN 11/25/24 Unknown History aerosol inhaler shortness of breath or wheezing dulaglutide 4.5 mg/0.5 mL 4.5 mg subcut SA 11/25/24 11/18/24 History subcutaneous pen injector (Trulicity) Allergy/AdvReac Type Severity Reaction Status Date / Time No Known Allergies Allergy Verified 11/25/24 08:58 Family History Other Bleeding disorder Cancer Diabetes Hypertension Surgical History Hx of foot surgery Hx of foot surgery Social History Smoking Status: Current every day smoker tobacco type: cigarettes alcohol intake: never substance use type: does not use what type of physical activity do you participate in: none ROS ROS ED ROS Narrative Review of systems positive for diffuse, crampy abdominal pain, constipation with no bowel movement for the last 5 to 6 days although she is having diarrhea from taking a laxative. Positive nausea and vomiting, and dry heaving. No fevers or chills. No exacerbating or alleviating factors. EXAM Physical Exam Narrative Exam Narrative: Afebrile. Vital signs noted. Nontoxic-appearing. Cardiovascular examination reveals mild tachycardia. Lungs are clear to auscultation bilaterally. The abdomen is soft, nontender, without guarding or rebound. Positive bowel sounds. Neurological examination is nonfocal and nonlateralizing. Patient was previously tearful prior to examination. Const Vital Signs: 11/25/24 08:48 11/25/24 09:50 11/25/24 10:00 Temperature 96.8 F L 98.0 F 97.9 F Temperature Source Temporal Oral Temporal Pulse Rate 112 H 103 H 94 Respiratory Rate 20 H 19 H 17 Blood Pressure 121/91 H 130/91 H 122/91 H Blood Pressure Mean 101 104 101 Pulse Ox 99 96 92 Oxygen Delivery Method Room Air Room Air Room Air 11/25/24 11:00 11/25/24 12:00 Temperature 97.6 F L Temperature Source Temporal Pulse Rate 85 91 Respiratory Rate 16 Blood Pressure 124/90 H 123/85 H Blood Pressure Mean 101 97 Pulse Ox 94 95 Oxygen Delivery Method Room Air MDM MDM MDM Narrative Medical decision making narrative: The differential diagnosis includes but not limited to diabetic gastroparesis versus nonspecific abdominal pain versus obstruction versus constipation versus undiagnosed irritable bowel syndrome with constipation. Comprehensive workup was pursued. Patient states her last menstrual period was approximately a week ago. I will obtain basic laboratory work including CBC and BMP to look for dehydration or other electrolyte imbalance given her stooling. I reviewed her prior ED visits and outpatient record and she has had multiple CTs in the past. I will obtain abdominal x-rays. She was given a bolus of normal saline and ondansetron. Regarding her abdominal pain and cramping, I discussed with her the use of an antispasmodic which could cause more constipation however. We will wait until further workup is pursued before administering any further analgesics. I do not feel narcotics are indicated currently which can cause constipation as well. I reviewed her laboratory work and she has a leukocytosis of 27,000. When compared to other laboratories, she has been elevated just above 11 in the past, but not this high. Hemoglobin 14.1, hematocrit 42.3, platelet count 400. Her electrolyte panel shows a BUN of 19 with creatinine 1.2, glucose is slightly elevated 203. Given her leukocytosis, I added blood cultures and a lactic acid. Lactic acid is normal at 1.5. Urinalysis negative for infection with WBC count of 0-5. 0 bacteria. I do not feel she has a urinary tract infection. On my interpretation of the x-rays of the abdomen, she has a large fecal burden with air dilation. I reviewed the radiology report which confirms my independent interpretation and comments on constipation and the fecal burden/retention. Given her leukocytosis and continued pain, she was administered morphine, and CT was obtained. I reviewed the radiology report of the CT of the abdomen and pelvis and she does have a fecal impaction with inflammation and thickening of the colon wall consistent with proctitis and colitis. At this point in time, I did perform digital rectal exam but was not going to perform fecal disimpaction as patient did not tolerated and I did not want to risk perforation. She was started on IV antibiotics in the form of Zosyn for her colitis and proctitis, and patient discussed with the hospitalist for admission. I discussed patient with Dr. Garrett who requested that I discussed patient with Dr. Welch with general surgery. She requested that the patient be started on enemas and agrees with admission to medicine. Patient is in stable condition. History & Record Review Discussion w/independent historian: Patient Lab Data Attestation: I reviewed the patient's lab results. Labs: Laboratory Results - last 24 hr 11/25/24 11/25/24 11/25/24 09:40 11:20 12:16 WBC 27.0 H RBC 5.21 Hgb 14.1 Hct 42.3 MCV 81.2 MCH 27.1 MCHC 33.3 RDW Std Deviation 41.1 RDW Coeff of John 14.2 Plt Count 400 MPV 9.4 Immature Gran % (Auto) 0.700 Neut % (Auto) 79.5 H Lymph % (Auto) 11.4 L [place] % (Auto) 8.0 Eos % (Auto) 0.1 Baso % (Auto) 0.3 Absolute Neuts (auto) 21.5 H Absolute Lymphs (auto) 3.09 Nucleated RBC % 0 Platelet Estimate A Sodium 135 Potassium 4.0 Chloride 97 L Carbon Dioxide 21.3 Anion Gap 17 H BUN 19 Creatinine 1.20 Estim Creat Clear Calc 86.69 Est GFR (MDRD) Non-Af 62 BUN/Creatinine Ratio 15.9 Glucose 203 H Lactic Acid 1.5 Calcium 9.6 Serum , Qual NEGATIVE Urine Color Yellow Urine Clarity Cloudy Urine pH 6.0 Ur Specific [place] 1.025 Urine Protein 30 H Urine Glucose (UA) Normal Urine Ketones 5 H Urine Occult Blood 25 H Urine Nitrite Negative Urine Bilirubin 1 H Urine Urobilinogen 1 H Ur Leukocyte Esterase Negative Urine RBC 0-5 SEEN Urine WBC 0-5 SEEN Ur Squamous Epith Cells 0-5 SEEN Amorphous Sediment 2+ URATE Urine Bacteria 0 SEEN Hyaline Casts 0-5 SEEN Urine Mucus 0 SEEN Radiography X-Ray: Read by ED Physician, Read by Radiologist and - (Constipation, large amount of stool in colon) Diagnostic Testing: Clinical Impression(s) from Imaging Studies Acute Abdomen Series 11/25/24 09:55 IMPRESSION: Fecal retention in the colon consistent with constipation. Reading Location: [facility] Abdomen/Pelvis CT 11/25/24 11:32 IMPRESSION: 1. Fecal impaction with apparent wall thickening of the distal colon and rectum suggesting proctitis and colitis. Clinical correlation is recommended. 2. Hepatomegaly with fatty infiltration. Reading Location: [facility] Management Discussion w/another healthcare provider: Hospitalist (Dr. Rao) and [employer] (Dr. Welch) Discharge Plan Dx/Rx/DC Orders Clinical Impression: Fecal impaction, Acute proctitis, Colitis Disposition Disposition: Acute Care Hospital [facility]
[2024-11-25] MEDS: Ondansetron 4 MG/2 ML Vial IV ×2 (09:43→21:18)
[2024-11-25] MEDS: 0.9% Normal Saline (1000mL) 1,000 ML 999 ML IV (09:43)
[2024-11-25 09:52] LABS: Absolute Lymphocyte Count 3.09 X10^3/uL (0.83-4.51); Absolute Neutrophil Count 21.5 X10^3/uL (2.0-7.7); Basophil# 0.09 X10^3/uL; Basophil% 0.3 % (0-1); Eosinophil# 0.02 X10^3/uL; Eosinophils% 0.1 % (0-5); Hematocrit 42.3 % (37-47); Hemoglobin 14.1 g/dL (12.0-15.0); Lymphocyte # 3.09 X10^3/ul (0.83-4.51); Lymphocyte % 11.4 % (19-41); Mean Corp Hgb Conc 33.3 g/dL (32-36); Mean Corpuscular Hgb 27.1 pg (27.0-32.0); Mean Corpuscular Volume 81.2 fL (81-99); Mean Platelet Vol. 9.4 fl (6.2-12.0); Monocyte# 2.16 X10^3/uL; NRBC Flagged by Analyzer 0 % (0-5); Neutrophil # 21.47 X10^3/uL (2.7-7.7); Neutrophil % 79.5 % (47-70); POSITIVE DIFFERENTIAL YES; Platelet Count 400 K/mm3 (150-450); RBC Distribution Width CV 14.2 % (11.6-14.6); RBC Distribution Width SD 41.1 fl (35.1-43.9); Red Blood Count 5.21 M/mm3 (4.2-5.4)
--- NOTE | 2024-11-25 09:55 | RAD_ITS ---
EXAM: XR Abdomen, 2 Views and XR Chest, 1 View CLINICAL INDICATION: PAIN TECHNIQUE: Frontal view of the chest, frontal view of the abdomen/pelvis and upright or decubitus view of the abdomen. COMPARISON: No relevant prior studies available. FINDINGS: LUNGS AND PLEURAL SPACES: Unremarkable. No consolidation. No pneumothorax. HEART: Unremarkable. No cardiomegaly. MEDIASTINUM: Unremarkable. Normal mediastinal contour. INTRAPERITONEAL SPACE: No free air. GASTROINTESTINAL TRACT: Fecal retention in the colon consistent with constipation. No dilation. BONES/JOINTS: Unremarkable. No acute fracture. RAD/Acute Abdomen Inc Chest IMPRESSION: Fecal retention in the colon consistent with constipation. Reading Location: [id number]
[2024-11-25 09:58] LABS: Differential Indicated SCAN CRITERIA MET
[2024-11-25 10:21] LABS: Anion Gap 17 (5-15); BUN 19 mg/dL (4-19); BUN/Creat Ratio 15.9 RATIO (10-20); Calcium,Total 9.6 mg/dL (7.6-11.0); Carbon Dioxide 21.3 mmol/L (21.0-32.0); Chloride 97 mmol/L (98-108); EST Glomerular Filtration Rate 62 (>60); Estimated Creatinine Clearance 86.69 ml/min (50-250); Glucose 203 mg/dL (70-99); Sodium Level 135 mmol/L (133-145)
[2024-11-25 10:28] LABS: Internal QC Validated? YES +Cl - CLEAR BKGD; Pregnancy, Serum, hCG Quali. NEGATIVE Negative
[2024-11-25 10:36] LABS: Platelet Estimate A (ADEQ)
[2024-11-25 11:23] LABS: Bacteria 0 SEEN /hpf (None Seen); Mucous, Urine 0 SEEN /hpf (<or=2+)
[2024-11-25 11:30] LABS: Color, Urine Yellow (Yellow); Glucose, Dipstick Normal (Normal); Ketone-Dipstick 5 mg/dl (Negative); Leukocyte Esterase-Dipstick Negative /ul (Negative); Nitrite-Dipstick Negative (Negative); Occult Blood-Urine 25 /ul (Negative); Protein-Dipstick 30 mg/dl (Negative); Specific Gravity, Urine 1.025 (1.002-1.030); Urine Bilirubin Dipstick 1 mg/dL (Negative); Urine Clarity Cloudy (Clear); Urine Urobilinogen 1 mg/dl (Normal)
[2024-11-25 11:32] LABS: Amorphous Sediment 2+ URATE; Red Blood Cells-Urine 0-5 SEEN /hpf (0-5); Squamous Epithelial Cells - UA 0-5 SEEN /hpf (5-10); White Blood Cells 0-5 SEEN /hpf (0-5)
--- NOTE | 2024-11-25 11:32 | CT_ITS ---
EXAM: CT Abdomen and Pelvis With Intravenous Contrast CLINICAL INDICATION: DIARRHEA, PAIN TECHNIQUE: Axial computed tomography images of the abdomen and pelvis with intravenous contrast. This CT exam was performed using one or more of the following dose reduction techniques: automated exposure control, adjustment of the mA and/or kV according to patient size, and/or use of iterative reconstruction technique. COMPARISON: CT Abdomen Pelvis dated 06/26/2023 FINDINGS: LUNG BASES: Unremarkable. No mass. No consolidation. ABDOMEN: LIVER: Hepatomegaly with fatty infiltration. GALLBLADDER AND BILE DUCTS: Unremarkable. No calcified stones. No ductal dilation. PANCREAS: Unremarkable. No mass. No ductal dilation. SPLEEN: Unremarkable. No splenomegaly. ADRENALS: Unremarkable. No mass. KIDNEYS AND URETERS: Unremarkable. No solid mass. No hydronephrosis. STOMACH AND BOWEL: Fecal impaction with apparent wall thickening of the distal colon and rectum suggesting proctitis and colitis. Clinical correlation is recommended. No obstruction. PELVIS: APPENDIX: No findings to suggest acute appendicitis. BLADDER: Unremarkable. No mass. REPRODUCTIVE: Unremarkable as visualized. ABDOMEN and PELVIS: INTRAPERITONEAL SPACE: Unremarkable. No free air. No significant fluid collection. BONES/JOINTS: No acute fracture. No dislocation. SOFT TISSUES: Unremarkable. VASCULATURE: Unremarkable. No abdominal aortic aneurysm. LYMPH NODES: Unremarkable. No enlarged lymph nodes. CT/Abdomen/Pelvis W IV Cont ONLY IMPRESSION: 1. Fecal impaction with apparent wall thickening of the distal colon and rectu m suggesting proctitis and colitis. Clinical correlation is recommended. 2. Hepatomegaly with fatty infiltration. Reading Location: [id number]
[2024-11-25 11:33] LABS: Hyaline Cast 0-5 SEEN /lpf (0-5)
[2024-11-25] MEDS: Morphine 4 MG/ML Syringe IV (12:50)
[2024-11-25 13:05] LABS: Lactic Acid 1.5 mmol/L (0.0-2.0)
--- NOTE | 2024-11-25 13:24 | HP.PCM.HOS_ITS ---
HPI - General General Date of Admission: 11/25/24 Date of Service: 11/25/24 Chief Complaint: abdominal pain, constipation HPI Narrative SHOLA PATTON, is a 34 F with a PMH as outlined including diabetes who presents via the ED on 11/25/2024 with a complaint of constipation. She has struggled with constipation over the years and takes laxatives. She says 3 days prior to admission, she took her laxative due to constipation. She subsequently started having diarrhea. She also had cramping and was worried that she may have fecal impaction. SHe also complained of nausea and vomiting. She had no other complaints. Review of symptoms otherwise negative. Vitals in the ED were blood pressure of 123/85, pulse rate of 91 and respiratory rate of 16. Pulse ox was 95% on room air. CBC showed hemoglobin of 14.1 with WBC of 27 and platelets of 400. Chemistry was largely unremarkable. Lactic acid was 1.5. Urinalysis showed 0 bacteria and negative leukocyte esterase. She initially had an abdominal series x-ray which showed fecal retention in the colon consistent with constipation. She then had CT of the abdomen and pelvis which showed fecal impaction with apparent wall thickening of the distal colon and rectum suggesting proctitis and colitis as well as hepatomegaly with fatty infiltration. She has been admitted to be managed for proctocolitis, likely stercoral colitis in the setting of severe constipation with likely overflow diarrhea. [facility] Medical History (Updated 11/25/24 @ 15:05 by Alejandrina Mayorga) GERD (gastroesophageal reflux disease) Wears glasses History of MRSA infection Borderline personality disorder Alcohol use Insulin dependent diabetes mellitus Dietary restriction Heartburn Smoker Shortness of breath on exertion Leg cramps Type 2 diabetes mellitus with peripheral neuropathy Neuropathy, diabetic Elevated serum creatinine Failure of outpatient treatment Nausea and vomiting Diabetes mellitus with diabetic polyneuropathy Type 2 diabetes mellitus with foot ulcer Anxiety Depression Constipation Asthma Diabetes Home Medications ?Medication ?Instructions ?Recorded ?Last Taken ?Type insulin glargine 100 unit/mL (3 20 unit subcut BID doreen betes 08/12/22 11/25/24 History mL) subcutaneous pen (Lantus Solostar U-100 Insulin) trazodone 300 mg tablet 200 mg PO QHS PRN insomnia 0 07/16/23 Unknown History albuterol sulfate 90 mcg/actuation 2 puff inhalation Q 4H PRN 11/25/24 Unknown History aerosol inhaler shortness of breath or [place] ing dulaglutide 4.5 mg/0.5 mL 4.5 mg subcut SA 11/25/24 History subcutaneous pen injector (Trulicity) Allergy/AdvReac Type Severity Reaction Status Date / Time No Known Allergies Allergy Verified 11/25/24 08:58 Family History Other Bleeding disorder Cancer Diabetes Hypertension Surgical History Hx of foot surgery Hx of foot surgery Social History Smoking Status: Current every day smoker tobacco type: cigarettes alcohol intake: never substance use type: does not use what type of physical activity do you participate in: none ROS Constitutional Constitutional: Reports fatigue, malaise and weakness; Denies anorexia, chills or fever(s) Eyes Eyes: Denies change in vision ENT HEENT: Denies dysphagia, headache(s) or sore throat Cardiovascular Cardiovascular: Denies chest pain, dyspnea on exertion, edema, lightheadedness, orthopnea or palpitations Respiratory/Chest Respiratory/Chest: Denies cough, dyspnea, productive cough, shortness of breath at rest or shortness of breath with exertion Gastrointestinal Gastrointestinal: Reports abdominal pain, constipation, diarrhea, nausea and vomiting; Denies dyspepsia, hematemesis, hematochezia, loose stools or melena Genitourinary Genitourinary: Denies burning urination or dysuria Musculoskeletal Musculoskeletal: Denies arthralgias Neurologic Neurologic: Denies confusion, dizziness, focal weakness or headache(s) Psychiatric Psychiatric: Denies anxiety or depression Vital Signs Vital Signs Vital Signs: 11/25/24 08:48 11/25/24 09:50 11/25/24 10:00 Temperature 96.8 F L 98.0 F 97.9 F Temperature Source Temporal Oral Temporal Pulse Rate 112 H 103 H 94 Respiratory Rate 20 H 19 H 17 Blood Pressure 121/91 H 130/91 H 122/91 H Blood Pressure Mean 101 104 101 Pulse Ox 99 96 92 Oxygen Delivery Method Room Air Room Air Room Air 11/25/24 11:00 11/25/24 12:00 Temperature 97.6 F L Temperature Source Temporal Pulse Rate 85 91 Respiratory Rate 16 Blood Pressure 124/90 H 123/85 H Blood Pressure Mean 101 97 Pulse Ox 94 95 Oxygen Delivery Method Room Air Weight Weight: 253 lb 9.6 oz Body Mass Index (BMI) 40.9 Physical Exam Const alert, oriented x3 and no apparent distress Constitutional Narrative: Class III obesity General Appearance: cooperative HEENT normocephalic, head/scalp atraumatic, hearing grossly normal bilaterally, moist oral mucous membranes and oropharynx normal Mouth: oral and palatal mucosa normal Eyes PERRL, EOMs intact bilaterally and conjunctivae normal Neck no lymphadenopathy, supple and no JVD Resp normal respiratory effort, no retractions, no use of accessory muscles and clear to auscultation bilaterally Cardio regular rate, regular rhythm, S1 normal heart sound, S2 normal heart sound and no murmurs GI normal to inspection, nondistended, normoactive bowel sounds GI Narrative: Moderate generalized abdominal tenderness with no guarding or rebound tenderness. Extremity normal to inspection, full ROM and no clubbing, cyanosis or edema Neuro oriented x3, CN's II-XII intact bilaterally, moves all extremities and no focal motor deficits Sensorium / Orientation: awake and alert Motor Exam: strength 5/5 throughout Psych affect normal Results Lab / Micro Data 11/26/24 04:24 11/26/24 04:24 Labs: Laboratory Results - last 24 hr 11/25/24 09:40: WBC 27.0 H, RBC 5.21, Hgb 14.1, Hct 42.3, MCV 81.2, MCH 27.1, MCHC 33.3, RDW Std Deviation 41.1, RDW Coeff of John 14.2, Plt Count 400, MPV 9.4, Immature Gran % (Auto) 0.700, Neut % (Auto) 79.5 H, Lymph % (Auto) 11.4 L, [place] % (Auto) 8.0, Eos % (Auto) 0.1, Baso % (Auto) 0.3, Absolute Neuts (auto) 21.5 H, Absolute Lymphs (auto) 3.09, Nucleated RBC % 0, Platelet Estimate A, Sodium 135, Potassium 4.0, Chloride 97 L, Carbon Dioxide 21.3, Anion Gap 17 H, BUN 19, Creatinine 1.20, Estim Creat Clear Calc 86.69, Est GFR (MDRD) Non-Af 62, BUN/Creatinine Ratio 15.9, Glucose 203 H, Calcium 9.6, Serum , Qual NEGATIVE 11/25/24 11:20: Urine Color Yellow, Urine Clarity Cloudy, Urine pH 6.0, Ur Specific [place] 1.025, Urine Protein 30 H, Urine Glucose (UA) Normal, Urine Ketones 5 H, Urine Occult Blood 25 H, Urine Nitrite Negative, Urine Bilirubin 1 H, Urine Urobilinogen 1 H, Ur Leukocyte Esterase Negative, Urine RBC 0-5 SEEN, Urine WBC 0-5 SEEN, Ur Squamous Epith Cells 0-5 SEEN, Amorphous Sediment 2+ URATE, Urine Bacteria 0 SEEN, Hyaline Casts 0-5 SEEN, Urine Mucus 0 SEEN 11/25/24 12:16: Lactic Acid 1.5 Imaging Radiology Impression Acute Abdomen Series 11/25/24 09:55 IMPRESSION: Fecal retention in the colon consistent with constipation. Reading Location: [facility] Abdomen/Pelvis CT 11/25/24 11:32 IMPRESSION: 1. Fecal impaction with apparent wall thickening of the distal colon and rectum suggesting proctitis and colitis. Clinical correlation is recommended. 2. Hepatomegaly with fatty infiltration. Reading Location: [facility] Assessment & Plan Assessment/Plan (1) Colitis: (2) Acute proctitis: (3) Fecal impaction: PLAN: Plan # Stercoral proctocolitis with overflow diarrhea in the setting of severe constipation with fecal impaction * Admit to [facility]. Admitted with a complaint of abdominal pain. She does have a history of severe constipation. She took her laxatives but subsequently started having diarrhea. * Abdominal series x-ray showed fecal retention in the colon consistent with constipation. * CT of the abdomen and pelvis showed fecal impaction with apparent wall thickening of the distal colon and rectum suggesting proctitis and colitis. It also showed hepatomegaly with fatty infiltration * Keep n.p.o. for now. Consult general surgery * Placed on lactulose and Dulcolax to help with constipation. May also need enema if all these do not work. * #Type 2 diabetes mellitus * On dulaglutide and Lantus 20 units twice daily. Hold Lantus and dulaglutide. Insulin sliding scale. Accu-Cheks ACHS. * #Class II obesity: BMi is 39.4. Complicates acute care, expected recovery and prognosis. DVT prophylaxis: Lovenox CODE STATUS: Full code Charges/Coding Visit Charges Inpatient E&M: 70259 Init Hosp L2
[2024-11-25] MEDS: Piperacil/Tazobactam 3.375 GM in 0.9% Normal Saline (50mL MB+) 50 ML IV ×2 (13:52→21:37)
[2024-11-25] MEDS: 0.9% Normal Saline (1000mL) 1,000 ML 125 ML IV (15:24)
[2024-11-25] MEDS: Ketorolac 30 MG/ML Syringe IV (15:24)
[2024-11-25 18:10] LABS: Bedside Glucose 139 mg/dL (74-106)
--- NOTE | 2024-11-25 20:51 | CON.PCM.SX_ITS ---
Assessment & Plan Assessment/Plan (1) Fecal impaction: (2) Acute proctitis: PLAN: Plan Discussed with patient would recommend additional enema to help soften the bowel of stool in the rectum. Along with additional ones after that. Continue IV Zosyn Discussed with patient plan to DC with laxatives. Annalise Welch M.D. Pager: [phone] [facility] [address] [place] [address], Outpatient [facility]ilion, [address] [place] [address] Office: [phone] HPI Consult Data Date of Consult: 11/26/24 HPI Narrative Reason for Consultation: Fecal impaction, acute proctitis HPI Narrative: SHOLA PATTON, is a 34 F who presents to the ER due to constipation. Patient has had issues with constipation for years. Patient states that she did take her laxative for constipation 3 days prior to coming in however she was only having diarrhea and felt that there were some harder stool she was unable to get out. Also complained of some nausea and vomiting. CT abdomen pelvis showed fecal impaction with wall thickening of the distal colon and rectum suggesting proctitis/colitis. Patient white blood count was 27 patient was started on Zosyn IV. Patient did have an enema in the ER and did have some results with it. ON LICENSE OF [facility] Medical History (Updated 11/25/24 @ 15:05 by Alejandrina Mayorga) GERD (gastroesophageal reflux disease) Wears glasses History of MRSA infection Borderline personality disorder Alcohol use Insulin dependent diabetes mellitus Dietary restriction Heartburn Smoker Shortness of breath on exertion Leg cramps Type 2 diabetes mellitus with peripheral neuropathy Neuropathy, diabetic Elevated serum creatinine Failure of outpatient treatment Nausea and vomiting Diabetes mellitus with diabetic polyneuropathy Type 2 diabetes mellitus with foot ulcer Anxiety Depression Constipation Asthma Diabetes Home Medications ?Medication ?Instructions ?Recorded ?Last Taken ?Type insulin glargine 100 unit/mL (3 20 unit subcut BID doreen betes 08/12/22 11/25/24 History mL) subcutaneous pen (Lantus Solostar U-100 Insulin) trazodone 300 mg tablet 200 mg PO QHS PRN insomnia 0 07/16/23 Unknown History albuterol sulfate 90 mcg/actuation 2 puff inhalation Q 4H PRN 11/25/24 Unknown History aerosol inhaler shortness of breath or wheez ing dulaglutide 4.5 mg/0.5 mL 4.5 mg subcut SA 11/25/24 History subcutaneous pen injector (Trulicity) Allergy/AdvReac Type Severity Reaction Status Date / Time No Known Allergies Allergy Verified 11/25/24 08:58 Family History Other Bleeding disorder Cancer Diabetes Hypertension Surgical History Hx of foot surgery Hx of foot surgery Social History Smoking Status: Current every day smoker tobacco type: cigarettes alcohol intake: never substance use type: does not use what type of physical activity do you participate in: none ROS Constitutional Constitutional: Denies fever(s) Eyes Eyes: Reports blurry vision ENT HEENT: Denies dysphagia Cardiovascular Cardiovascular: Denies chest pain Respiratory/Chest Respiratory/Chest: Denies cough Gastrointestinal Gastrointestinal: Reports constipation, diarrhea, nausea and vomiting; Denies abdominal pain or hematochezia Genitourinary Genitourinary: Denies dysuria Musculoskeletal Musculoskeletal: Denies joint swelling Integumentary Integumentary: Denies jaundice Neurologic Neurologic: Denies focal weakness Hematologic/Lymphatic Hematologic/Lymphatic: Denies easy bleeding Physical Exam Const alert, oriented x3 and no apparent distress HEENT normocephalic and head/scalp atraumatic Resp normal respiratory effort Cardio regular rate GI soft to palpation, non-tender and non-distended GI Narrative: DEMETRICE hard stool with tip finger, no gross blood Palpation: Negative for guarding Extremity no clubbing, cyanosis or edema Neuro CN's II-XII intact bilaterally Psych mental status grossly normal Lab / Micro Data 11/26/24 04:24 11/26/24 04:24 Labs: Laboratory Results - last 24 hr 11/25/24 09:40: WBC 27.0 H, RBC 5.21, Hgb 14.1, Hct 42.3, MCV 81.2, MCH 27.1, MCHC 33.3, RDW Std Deviation 41.1, RDW Coeff of John 14.2, Plt Count 400, MPV 9.4, Immature Gran % (Auto) 0.700, Neut % (Auto) 79.5 H, Lymph % (Auto) 11.4 L, [place] % (Auto) 8.0, Eos % (Auto) 0.1, Baso % (Auto) 0.3, Absolute Neuts (auto) 21.5 H, Absolute Lymphs (auto) 3.09, Nucleated RBC % 0, Platelet Estimate A, Sodium 135, Potassium 4.0, Chloride 97 L, Carbon Dioxide 21.3, Anion Gap 17 H, BUN 19, Creatinine 1.20, Estim Creat Clear Calc 86.69, Est GFR (MDRD) Non-Af 62, BUN/Creatinine Ratio 15.9, Glucose 203 H, Calcium 9.6, Serum , Qual NEGATIVE 11/25/24 11:20: Urine Color Yellow, Urine Clarity Cloudy, Urine pH 6.0, Ur Specific [place] 1.025, Urine Protein 30 H, Urine Glucose (UA) Normal, Urine Ketones 5 H, Urine Occult Blood 25 H, Urine Nitrite Negative, Urine Bilirubin 1 H, Urine Urobilinogen 1 H, Ur Leukocyte Esterase Negative, Urine RBC 0-5 SEEN, Urine WBC 0-5 SEEN, Ur Squamous Epith Cells 0-5 SEEN, Amorphous Sediment 2+ URATE, Urine Bacteria 0 SEEN, Hyaline Casts 0-5 SEEN, Urine Mucus 0 SEEN 11/25/24 12:16: Lactic Acid 1.5 11/25/24 17:53: POC Glucose 139 H Imaging Radiology Impression Acute Abdomen Series 11/25/24 09:55 IMPRESSION: Fecal retention in the colon consistent with constipation. Reading Location: [facility] Abdomen/Pelvis CT 11/25/24 11:32 IMPRESSION: 1. Fecal impaction with apparent wall thickening of the distal colon and rectum suggesting proctitis and colitis. Clinical correlation is recommended. 2. Hepatomegaly with fatty infiltration. Reading Location: [facility] Charges/Coding Visit Charges Inpatient E&M: 34656 Init Hosp L3
[2024-11-26] MEDS: Metoclopramide 10 MG/2 ML Vial 5 MG IV (00:06)
[2024-11-26] MEDS: 0.9% Normal Saline (1000mL) 1,000 ML 125 ML IV (00:07)
[2024-11-26 00:24] LABS: Bedside Glucose 166 mg/dL (74-106)
[2024-11-26 03:48] VITALS: BP 106/73; PULSE 72; RESP 18; TEMP 36.4; O2SAT 99
[2024-11-26 05:37] LABS: Absolute Lymphocyte Count 3.42 X10^3/uL (0.83-4.51); Absolute Neutrophil Count 12.9 X10^3/uL (2.0-7.7); Basophil# 0.04 X10^3/uL; Basophil% 0.2 % (0-1); Eosinophil# 0.03 X10^3/uL; Eosinophils% 0.2 % (0-5); Hematocrit 34.2 % (37-47); Lymphocyte # 3.42 X10^3/ul (0.83-4.51); Lymphocyte % 19.4 % (19-41); Mean Corp Hgb Conc 32.2 g/dL (32-36); Mean Corpuscular Volume 83.8 fL (81-99); Mean Platelet Vol. 9.8 fl (6.2-12.0); Monocyte# 1.09 X10^3/uL; Monocyte% 6.2 % (0-10); NRBC Flagged by Analyzer 0 % (0-5); Neutrophil # 12.93 X10^3/uL (2.7-7.7); Neutrophil % 73.4 % (47-70); Platelet Count 308 K/mm3 (150-450); RBC Distribution Width CV 13.9 % (11.6-14.6); Red Blood Count 4.08 M/mm3 (4.2-5.4); White Blood Count 17.6 K/mm3 (4.4-11.0)
[2024-11-26] MEDS: Piperacil/Tazobactam 3.375 GM in 0.9% Normal Saline (50mL MB+) 50 ML IV ×3 (06:05→21:31)
[2024-11-26 06:16] LABS: Anion Gap 11 (5-15); BUN 17 mg/dL (4-19); Calcium,Total 7.8 mg/dL (7.6-11.0); Carbon Dioxide 22.6 mmol/L (21.0-32.0); Chloride 104 mmol/L (98-108); Creatinine, Serum 1.16 mg/dL (0.70-1.20); EST Glomerular Filtration Rate 64 (>60); Estimated Creatinine Clearance 87.78 ml/min (50-250); Glucose 148 mg/dL (70-99); Sodium Level 137 mmol/L (133-145)
[2024-11-26 06:23] LABS: Bedside Glucose 160 mg/dL (74-106)
--- NOTE | 2024-11-26 07:41 | PCM.PN.SRG ---
Subjective Subjective Patient states she did have results with the enema did refuse additional enemas last night. Patient does states she has some bleeding with her stool. Patient white blood count is down to 17 from 27 Objective Data Objective Data Vital Signs: Vital Signs Temp Pulse Resp BP Pulse Ox O2 Del Method 97.6 F L 72 18 106/73 99 Room Air 11/26/24 03:48 11/26/24 03:48 11/26/24 03:48 11/26/24 03:48 11/26/24 03:48 11/26/24 03:48 Oxygen Delivery Method Room Air Weight: 244 lb 1 oz Body Mass Index (BMI) 39.4 Intake & Output: Intake and Output for Last 24 Hours 11/24/24 11/25/24 11/26/24 23:59 23:59 23:59 Intake Total 2049 50 / 50 Balance 2049 50 / 50 Lab / Micro Data 11/26/24 04:24 11/26/24 04:24 Labs: Laboratory Results - last 24 hr 11/25/24 09:40: WBC 27.0 H, RBC 5.21, Hgb 14.1, Hct 42.3, MCV 81.2, MCH 27.1, MCHC 33.3, RDW Std Deviation 41.1, RDW Coeff of John 14.2, Plt Count 400, MPV 9.4, Immature Gran % (Auto) 0.700, Neut % (Auto) 79.5 H, Lymph % (Auto) 11.4 L, [place] % (Auto) 8.0, Eos % (Auto) 0.1, Baso % (Auto) 0.3, Absolute Neuts (auto) 21.5 H, Absolute Lymphs (auto) 3.09, Nucleated RBC % 0, Platelet Estimate A, Sodium 135, Potassium 4.0, Chloride 97 L, Carbon Dioxide 21.3, Anion Gap 17 H, BUN 19, Creatinine 1.20, Estim Creat Clear Calc 86.69, Est GFR (MDRD) Non-Af 62, BUN/Creatinine Ratio 15.9, Glucose 203 H, Calcium 9.6, Serum , Qual NEGATIVE 11/25/24 11:20: Urine Color Yellow, Urine Clarity Cloudy, Urine pH 6.0, Ur Specific [place] 1.025, Urine Protein 30 H, Urine Glucose (UA) Normal, Urine Ketones 5 H, Urine Occult Blood 25 H, Urine Nitrite Negative, Urine Bilirubin 1 H, Urine Urobilinogen 1 H, Ur Leukocyte Esterase Negative, Urine RBC 0-5 SEEN, Urine WBC 0-5 SEEN, Ur Squamous Epith Cells 0-5 SEEN, Amorphous Sediment 2+ URATE, Urine Bacteria 0 SEEN, Hyaline Casts 0-5 SEEN, Urine Mucus 0 SEEN 11/25/24 12:16: Lactic Acid 1.5 11/25/24 17:53: POC Glucose 139 H 11/26/24 00:02: POC Glucose 166 H 11/26/24 04:24: WBC 17.6 H, RBC 4.08 L, Hgb 11.0 L, Hct 34.2 L, MCV 83.8, MCH 27.0, MCHC 32.2, RDW Std Deviation 43.0, RDW Coeff of John 13.9, Plt Count 308, MPV 9.8, Immature Gran % (Auto) 0.600, Neut % (Auto) 73.4 H, Lymph % (Auto) 19.4, [place] % (Auto) 6.2, Eos % (Auto) 0.2, Baso % (Auto) 0.2, Absolute Neuts (auto) 12.9 H, Absolute Lymphs (auto) 3.42, Nucleated RBC % 0, Sodium 137, Potassium 4.0, Chloride 104, Carbon Dioxide 22.6, Anion Gap 11, BUN 17, Creatinine 1.16, Estim Creat Clear Calc 87.78, Est GFR (MDRD) Non-Af 64, BUN/Creatinine Ratio 15.0, Glucose 148 H, Calcium 7.8 11/26/24 06:02: POC Glucose 160 H Radiography Diagnostic Testing: Radiology Impression Acute Abdomen Series 11/25/24 09:55 IMPRESSION: Fecal retention in the colon consistent with constipation. Reading Location: [facility] Abdomen/Pelvis CT 11/25/24 11:32 IMPRESSION: 1. Fecal impaction with apparent wall thickening of the distal colon and rectum suggesting proctitis and colitis. Clinical correlation is recommended. 2. Hepatomegaly with fatty infiltration. Reading Location: [facility] Physical Exam Const oriented x3 and no apparent distress Resp normal respiratory effort Cardio regular rate GI soft to palpation and non-tender GI Narrative: DEMETRICE no obvious stool felt on exam, no gross blood. Assessment & Plan Assessment/Plan (1) Acute proctitis: (2) Fecal impaction: PLAN: Plan Will plan to check KUB unable to feel any stool this morning on DMEETRICE. Oral laxatives ordered. If stool seen on KUB will plan for additional enema. Continue IV Zosyn white blood count improved from 27-17. Annalise Welch M.D. Pager: [phone] [facility] [address] [place] [address], [facility], [address] [place] [address] Office: [phone] Charges/Coding Multi Select Codes Visit Charges Visit Charges: 13352 Subs Hosp L2
--- NOTE | 2024-11-26 08:10 | RAD_ITS ---
EXAM: XR Abdomen, 1 View CLINICAL INDICATION: FECAL IMPACTION-RECTUM TECHNIQUE: Frontal supine view of the abdomen/pelvis. COMPARISON: No relevant prior studies available. FINDINGS: GASTROINTESTINAL TRACT: Constipation with suggestion of fecal impaction of the rectum. No dilation. BONES/JOINTS: Unremarkable. No acute fracture. RAD/Abdomen Single View IMPRESSION: Constipation with suggestion of fecal impaction of the rectum. Reading Location: [facility]
[2024-11-26 09:00] VITALS: BP 138/81; PULSE 94; RESP 18; TEMP 36.8; O2SAT 98
--- NOTE | 2024-11-26 09:09 | PN_ITS ---
Subjective Subjective Patient seen and examined. She still complains of nausea and vomiting. She had several bowel movements overnight. Review of systems otherwise negative. She has remained hemodynamically stable. Objective Data Objective Data Vital Signs: Vital Signs Temp Pulse Resp BP Pulse Ox O2 Del Method 97.6 F L 72 18 106/73 99 Room Air 11/26/24 03:48 11/26/24 03:48 11/26/24 03:48 11/26/24 03:48 11/26/24 03:48 11/26/24 03:48 Oxygen Delivery Method Room Air Weight: 244 lb 1 oz Body Mass Index (BMI) 39.4 Intake & Output: Intake and Output for Last 24 Hours 11/24/24 11/25/24 11/26/24 23:59 23:59 23:59 Intake Total 2049 1050 / 1050 Balance 2049 1050 / 1050 Lab / Micro Data 11/26/24 04:24 11/26/24 04:24 Labs: Laboratory Results - last 24 hr 11/25/24 09:40: WBC 27.0 H, RBC 5.21, Hgb 14.1, Hct 42.3, MCV 81.2, MCH 27.1, MCHC 33.3, RDW Std Deviation 41.1, RDW Coeff of John 14.2, Plt Count 400, MPV 9.4, Immature Gran % (Auto) 0.700, Neut % (Auto) 79.5 H, Lymph % (Auto) 11.4 L, [place] % (Auto) 8.0, Eos % (Auto) 0.1, Baso % (Auto) 0.3, Absolute Neuts (auto) 21.5 H, Absolute Lymphs (auto) 3.09, Nucleated RBC % 0, Platelet Estimate A, Sodium 135, Potassium 4.0, Chloride 97 L, Carbon Dioxide 21.3, Anion Gap 17 H, BUN 19, Creatinine 1.20, Estim Creat Clear Calc 86.69, Est GFR (MDRD) Non-Af 62, BUN/Creatinine Ratio 15.9, Glucose 203 H, Calcium 9.6, Serum , Qual NEGATIVE 11/25/24 11:20: Urine Color Yellow, Urine Clarity Cloudy, Urine pH 6.0, Ur Specific [place] 1.025, Urine Protein 30 H, Urine Glucose (UA) Normal, Urine Ketones 5 H, Urine Occult Blood 25 H, Urine Nitrite Negative, Urine Bilirubin 1 H, Urine Urobilinogen 1 H, Ur Leukocyte Esterase Negative, Urine RBC 0-5 SEEN, Urine WBC 0-5 SEEN, Ur Squamous Epith Cells 0-5 SEEN, Amorphous Sediment 2+ URATE, Urine Bacteria 0 SEEN, Hyaline Casts 0-5 SEEN, Urine Mucus 0 SEEN 11/25/24 12:16: Lactic Acid 1.5 11/25/24 17:53: POC Glucose 139 H 11/26/24 00:02: POC Glucose 166 H 11/26/24 04:24: WBC 17.6 H, RBC 4.08 L, Hgb 11.0 L, Hct 34.2 L, MCV 83.8, MCH 27.0, MCHC 32.2, RDW Std Deviation 43.0, RDW Coeff of John 13.9, Plt Count 308, MPV 9.8, Immature Gran % (Auto) 0.600, Neut % (Auto) 73.4 H, Lymph % (Auto) 19.4, [place] % (Auto) 6.2, Eos % (Auto) 0.2, Baso % (Auto) 0.2, Absolute Neuts (auto) 12.9 H, Absolute Lymphs (auto) 3.42, Nucleated RBC % 0, Sodium 137, Potassium 4.0, Chloride 104, Carbon Dioxide 22.6, Anion Gap 11, BUN 17, Creatinine 1.16, Estim Creat Clear Calc 87.78, Est GFR (MDRD) Non-Af 64, BUN/Creatinine Ratio 15.0, Glucose 148 H, Calcium 7.8 11/26/24 06:02: POC Glucose 160 H Radiography Diagnostic Testing: Radiology Impression Acute Abdomen Series 11/25/24 09:55 IMPRESSION: Fecal retention in the colon consistent with constipation. Reading Location: [facility] Abdomen/Pelvis CT 11/25/24 11:32 IMPRESSION: 1. Fecal impaction with apparent wall thickening of the distal colon and rectum suggesting proctitis and colitis. Clinical correlation is recommended. 2. Hepatomegaly with fatty infiltration. Reading Location: [facility] KUB X-Ray 11/26/24 08:10 IMPRESSION: Constipation with suggestion of fecal impaction of the rectum. Reading Location: [facility] Physical Exam Const alert and oriented x3 Constitutional Narrative: Class II obesity. Uncomfortable due to the nausea and vomiting General Appearance: cooperative HEENT normocephalic, head/scalp atraumatic, hearing grossly normal bilaterally, moist oral mucous membranes and oropharynx normal Eyes PERRL, EOMs intact bilaterally and conjunctivae normal Neck no lymphadenopathy, supple and no JVD Resp normal respiratory effort, normal air movement, no retractions, no use of accessory muscles and clear to auscultation bilaterally Cardio regular rate, regular rhythm, S1 normal heart sound, S2 normal heart sound and no murmurs GI normal to inspection, nondistended, normoactive bowel sounds, soft to palpation and non-tender Extremity normal to inspection, full ROM and no clubbing, cyanosis or edema Neuro oriented x3, CN's II-XII intact bilaterally, moves all extremities and no focal motor deficits Sensorium / Orientation: awake and alert Motor Exam: strength 5/5 throughout Psych thought process normal, cooperative and affect normal Appearance: appropriate Assessment & Plan Assessment/Plan (1) Colitis: (2) Acute proctitis: (3) Fecal impaction: PLAN: Plan # Stercoral proctocolitis with overflow diarrhea in the setting of severe constipation with fecal impaction * Had enemas with laxative yesterday. She had several bowel movements. * Complaining of nausea and vomiting today. At time of my review patient was having incessant retching. * General surgery on board. Had KUB this morning which showed constipation with suggestion of fecal impaction of the rectum. * Continue keeping n.p.o. perform ice chips. * On IV Zosyn for the colitis. General surgery on board. * WBC today 17.6 down from 27 yesterday. * #Type 2 diabetes mellitus * On dulaglutide and Lantus 20 units twice daily. Hold Lantus and dulaglutide. Insulin sliding scale. * Accu-Cheks every 6 hourly as patient is NPO. * #Class II obesity: BMi is 39.4. Complicates acute care, expected recovery and prognosis. DVT prophylaxis: Lovenox CODE STATUS: Full code Charges/Coding Visit Charges Inpatient E&M: 10620 Subs Hosp L2
[2024-11-26] MEDS: Enoxaparin 40 MG/0.4 ML Syringe SC (09:47)
[2024-11-26] MEDS: Ondansetron 4 MG/2 ML Vial IV ×2 (09:48→20:49)
[2024-11-26] MEDS: Ketorolac 30 MG/ML Syringe IV ×2 (09:52→18:49)
[2024-11-26 12:11] LABS: Bedside Glucose 202 mg/dL (74-106)
[2024-11-26 15:12] VITALS: BP 124/82; PULSE 96; RESP 18; TEMP 36.8; O2SAT 100
[2024-11-26 17:13] VITALS: PULSE 95; RESP 20
[2024-11-26] MEDS: Albuterol 2.5 MG/3 ML VIAL.NEB. INHALATION (17:13)
[2024-11-26] MEDS: Insulin Lispro 100 UNIT/ML INSULN.PEN SC (18:01)
[2024-11-26 18:08] LABS: Bedside Glucose 218 mg/dL (74-106)
[2024-11-26] MEDS: 0.9% Saline Lock 10 ML Syringe IV (20:49)
[2024-11-26 21:28] VITALS: BP 123/94; PULSE 78; RESP 18; TEMP 36.4; O2SAT 98
[2024-11-26] MEDS: traZODone 100 MG Tablet 200 MG PO (21:32)
[2024-11-26] MEDS: Pantoprazole Sodium 40 MG in 0.9% Normal Saline (100mL MB+) 100 ML 330 MG IV (22:16)
[2024-11-26 22:30] LABS: Bedside Glucose 185 mg/dL (74-106)
[2024-11-26] MEDS: proMETHazine 25 MG/ML Syringe IM (23:44)
[2024-11-27 05:00] VITALS: BP 134/86; PULSE 98; RESP 14; TEMP 36.4; O2SAT 100
[2024-11-27 05:17] LABS: Absolute Lymphocyte Count 2.31 X10^3/uL (0.83-4.51); Absolute Neutrophil Count 9.7 X10^3/uL (2.0-7.7); Basophil# 0.03 X10^3/uL; Basophil% 0.2 % (0-1); Hematocrit 34.7 % (37-47); Hemoglobin 11.3 g/dL (12.0-15.0); Lymphocyte # 2.31 X10^3/ul (0.83-4.51); Lymphocyte % 18.1 % (19-41); Mean Corp Hgb Conc 32.6 g/dL (32-36); Mean Platelet Vol. 9.6 fl (6.2-12.0); Monocyte# 0.66 X10^3/uL; Monocyte% 5.2 % (0-10); NRBC Flagged by Analyzer 0 % (0-5); Neutrophil # 9.71 X10^3/uL (2.7-7.7); Neutrophil % 75.9 % (47-70); Platelet Count 354 K/mm3 (150-450); RBC Distribution Width CV 13.8 % (11.6-14.6); RBC Distribution Width SD 42.2 fl (35.1-43.9); Red Blood Count 4.18 M/mm3 (4.2-5.4); White Blood Count 12.8 K/mm3 (4.4-11.0)
[2024-11-27 05:36] LABS: Anion Gap 13 (5-15); BUN 16 mg/dL (4-19); Calcium,Total 7.9 mg/dL (7.6-11.0); Carbon Dioxide 24.2 mmol/L (21.0-32.0); Chloride 102 mmol/L (98-108); Creatinine, Serum 1.07 mg/dL (0.70-1.20); EST Glomerular Filtration Rate 71 (>60); Estimated Creatinine Clearance 95.16 ml/min (50-250); Glucose 217 mg/dL (70-99); Potassium 4.1 mmol/L (3.3-5.1); Sodium Level 139 mmol/L (133-145)
[2024-11-27] MEDS: Piperacil/Tazobactam 3.375 GM in 0.9% Normal Saline (50mL MB+) 50 ML IV ×3 (06:45→22:37)
[2024-11-27] MEDS: Insulin Lispro 100 UNIT/ML INSULN.PEN SC ×2 (06:47→12:28)
[2024-11-27 07:09] LABS: Bedside Glucose 185 mg/dL (74-106)
--- NOTE | 2024-11-27 07:59 | PCM.PN.HOSP ---
Reason for Visit Reason for Visit: Abdominal pain/constipation Subjective Subjective Patient reports she is having terrible abdominal pain today. States she had it yesterday. States she feels better in the shower. Does admit to marijuana use but states her last use was last Wednesday. She has had 2 CAT scans now. They both show proctitis. Repeat CAT scan today shows mild improvement and no further fecal impaction. Given this and the need to avoid recurrent constipation will discontinue morphine. Patient also with significant anxiety and has been on something for anxiety previously but unable to remember what this might be. Will start scheduled hydroxyzine. Recommend outpatient psychiatry follow-up after discharge. Objective Data Objective Data Vital Signs: Vital Signs Temp Pulse Resp BP Pulse Ox O2 Del Method 97.5 F L 98 14 134/86 H 100 Room Air 11/27/24 05:00 11/27/24 05:00 11/27/24 05:00 11/27/24 05:00 11/27/24 05:00 11/27/24 05:00 Oxygen Delivery Method Room Air Weight: 110.705 kg Body Mass Index (BMI) 39.4 Intake & Output: Intake and Output for Last 24 Hours 11/25/24 11/26/24 11/27/24 23:59 23:59 23:59 Intake Total 2049 1810 / 1950 330 / 330 Output Total 100 / 100 Balance 2049 1710 / 1850 330 / 330 Lab / Micro Data 11/27/24 04:16 11/27/24 04:16 Labs: Laboratory Results - last 24 hr 11/26/24 11:51: POC Glucose 202 H 11/26/24 17:49: POC Glucose 218 H 11/26/24 21:33: POC Glucose 185 H 11/27/24 04:16: WBC 12.8 H, RBC 4.18 L, Hgb 11.3 L, Hct 34.7 L, MCV 83.0, MCH 27.0, MCHC 32.6, RDW Std Deviation 42.2, RDW Coeff of John 13.8, Plt Count 354, MPV 9.6, Immature Gran % (Auto) 0.600, Neut % (Auto) 75.9 H, Lymph % (Auto) 18.1 L, [place] % (Auto) 5.2, Eos % (Auto) 0.0, Baso % (Auto) 0.2, Absolute Neuts (auto) 9.7 H, Absolute Lymphs (auto) 2.31, Nucleated RBC % 0, Sodium 139, Potassium 4.1, Chloride 102, Carbon Dioxide 24.2, Anion Gap 13, BUN 16, Creatinine 1.07, Estim Creat Clear Calc 95.16, Est GFR (MDRD) Non-Af 71, BUN/Creatinine Ratio 15.0, Glucose 217 H, Calcium 7.9 11/27/24 06:47: POC Glucose 185 H Radiography Diagnostic Testing: Radiology Impression KUB X-Ray 11/26/24 08:10 IMPRESSION: Constipation with suggestion of fecal impaction of the rectum. Reading Location: [facility] Physical Exam Const alert, oriented x3 and well nourished; Negative for no apparent distress, average body habitus or healthy appearing Constitutional Narrative: Obese, young middle-aged, white female, lying in bed appears markedly uncomfortable but not toxic HEENT head/scalp atraumatic and moist oral mucous membranes Head and Scalp: normocephalic Resp normal respiratory effort, no retractions, no use of accessory muscles and clear to auscultation bilaterally Auscultation: Negative for rales, rhonchi or wheezes Cardio regular rate, regular rhythm, S1 normal heart sound, S2 normal heart sound, no murmurs, no rub, no gallops and no clicks GI normal to inspection, nondistended, normoactive bowel sounds and soft to palpation GI Narrative: Diffusely tender Extremity no clubbing, cyanosis or edema Extremity Narrative: 2+ pedal and radial pulses Neuro oriented x3, moves all extremities and no focal motor deficits Psych Psych Narrative: Affect is flat, markedly anxious Assessment & Plan Assessment/Plan (1) Colitis: (2) Acute proctitis: (3) Fecal impaction: (4) Nausea & vomiting: PLAN: Plan Abdominal pain/nausea vomiting - Given severe abdominal pain repeat CT was performed today and is unremarkable compared to previous - Start scopolamine patch - Continue as needed Zofran and Phenergan - Discontinue IV morphine and Toradol - Continue oxycodone but would like to avoid to avoid further constipation - General Surgery is following-appreciate assistance - Patient does report marijuana use and that her symptoms get better when she is in a hot shower -may have cyclic vomiting syndrome related to marijuana use--> highly recommend cessation discussed with patient Acute proctitis/colitis - [place] to be stercoral colitis from severe constipation - Fecal impaction has been resolved - Continue Zosyn - Repeat CT shows improvement in colitis but not resolution - Will need total 14-day antibiotic regimen Fecal impaction - Resolved Leukocytosis - Trending down nicely - 27,000 on admission and now down to 12.8 - Continue IV antibiotics as ordered - Complete total 14-day antibiotic course as noted above DM-2 with hyperglycemia - Her home insulin was held - patient is on basal insulin 20 units twice daily - Restart basal insulin 20 units daily -Reduced dosing due to the fact that it is unclear whether or not she will tolerate p.o. diet much - Continue to hold Trulicity - Continue SSI - Carb controlled diet as ordered and patient tolerates Anxiety - I do feel it may be contributing some to her symptoms then her for her need of self-medicating with THC - Start scheduled hydroxyzine Insomnia - Continue home trazodone Asthma - Continue on as needed albuterol Obesity - BMI 39.4 - Recommend weight loss - Complicates treatment, prognosis, outcomes DVT prophylaxis - Continue home enoxaparin CODE STATUS - Full code Charges/Coding Visit Charges Inpatient E&M: 26357 Subs Hosp L2
--- NOTE | 2024-11-27 08:08 | CT_ITS ---
PROCEDURE: ABDOMEN/PELVIS WITH CONTRAST 11/27/2024 REASON FOR EXAM: ABDOMINAL PAIN Constipation TECHNIQUE: Abdomen and pelvis CT with intravenous contrast. Coronal and Sagittal reconstruction series were provided. PATIENT PREPARATION: Per protocol ORAL CONTRAST TYPE: Given AMOUNT: 200 mL CONTRAST: Isovue-300 VOLUME: 100 mL One or more dose reduction techniques were used (e.g., Automated exposure control, adjustment of the mA and/or kV according to patient size, use of iterative reconstruction technique. RADIATION DOSE SUMMARY: CTDlvol: 12 mGy DLP: 1384.33 mGycm COMPARISON: Prior study dated November 25, 2024.1 FINDINGS: Lung bases: Unremarkable Liver: Diffuse fatty infiltration. Borderline hepatomegaly. Gallbladder: Density seen within the gallbladder suggestive of possible sludge versus tiny gallstones. Spleen: Normal size. Pancreas: Normal size without evidence of mass surrounding inflammation or ductal dilation. Adrenals: Unremarkable Kidneys: Normal renal sizes. No hydronephrosis. Bladder: The bladder is empty. Reproductive Organs: Normal uterine size and contour. Ovaries are unremarkable. Small follicle is seen in the left ovary. Bowel: There is evidence of circumferential wall thickening and pericolonic inflammatory change in the rectosigmoid colon suggestive of colitis. Increased markings in the surrounding perirectal fat. Appendix: Unremarkable Lymph nodes: Unremarkable. Vasculature: The abdominal aorta and IVC are normal. Peritoneum / Retroperitoneum: Unremarkable Bones: Unremarkable CT/Abdomen/Pelvis WITH Contrast IMPRESSION: Fatty infiltration of the liver. Sludge is seen in the gallbladder lumen. Findings suggestive of colitis involving the rectosigmoid colon. There has bee n mild improvement as compared to prior study. Reading Location: [place] [id number]
[2024-11-27 08:45] LABS: AST(SGOT) 21 U/L (<=31); Alanine Aminotransfer ALT/SGPT 12 U/L (<=34); Albumin, Serum 3.5 g/dL (3.5-5.0); Alkaline Phosphatase 88 U/L (35-104); Bilirubin, Direct 0.14 mg/dL (0.00-0.30); Globulin 3.6 g/dL (2.2-4.2); Protein, Total 7.1 g/dL (5.9-8.4); Total Bilirubin 0.35 mg/dL (0.00-1.30)
--- NOTE | 2024-11-27 08:45 | PCM.PN.SRG ---
Subjective Subjective Patient evaluated rolling restlessly in the bed with abdominal pain. She notes increased abdominal pain over night. She states every time she is awake she is nasueated. She notes spitting up clear fluid. She notes small amount of loose stools over night. Objective Data Objective Data Vital Signs: Vital Signs Temp Pulse Resp BP Pulse Ox O2 Del Method 97.5 F L 98 14 134/86 H 100 Room Air 11/27/24 05:00 11/27/24 05:00 11/27/24 05:00 11/27/24 05:00 11/27/24 05:00 11/27/24 05:00 Oxygen Delivery Method Room Air Weight: 244 lb 1 oz Body Mass Index (BMI) 39.4 Intake & Output: Intake and Output for Last 24 Hours 11/25/24 11/26/24 11/27/24 23:59 23:59 23:59 Intake Total 2049 1810 / 1950 330 / 330 Output Total 100 / 100 Balance 2049 1710 / 1850 330 / 330 Lab / Micro Data 11/27/24 04:16 11/27/24 04:16 Labs: Laboratory Results - last 24 hr 11/26/24 11:51: POC Glucose 202 H 11/26/24 17:49: POC Glucose 218 H 11/26/24 21:33: POC Glucose 185 H 11/27/24 04:16: WBC 12.8 H, RBC 4.18 L, Hgb 11.3 L, Hct 34.7 L, MCV 83.0, MCH 27.0, MCHC 32.6, RDW Std Deviation 42.2, RDW Coeff of John 13.8, Plt Count 354, MPV 9.6, Immature Gran % (Auto) 0.600, Neut % (Auto) 75.9 H, Lymph % (Auto) 18.1 L, [place] % (Auto) 5.2, Eos % (Auto) 0.0, Baso % (Auto) 0.2, Absolute Neuts (auto) 9.7 H, Absolute Lymphs (auto) 2.31, Nucleated RBC % 0, Sodium 139, Potassium 4.1, Chloride 102, Carbon Dioxide 24.2, Anion Gap 13, BUN 16, Creatinine 1.07, Estim Creat Clear Calc 95.16, Est GFR (MDRD) Non-Af 71, BUN/Creatinine Ratio 15.0, Glucose 217 H, Calcium 7.9 11/27/24 06:47: POC Glucose 185 H Physical Exam GI GI Narrative: Abdomen- soft, generalized abdominal pain with palpation. Patient unable to stay still long enough to obtain bowel sounds Assessment & Plan Assessment/Plan (1) Acute proctitis: (2) Fecal impaction: (3) Abdominal pain: PLAN: Plan I am following this patient in conjunction with Dr. Welch. She will independently evaluate this patient. Labs reviewed. WBC is trending down. Today 12.8 Continue IV antibiotics Order urgent CT scan of ab/pel Keep patient NPO until after review Increase Protonix to IV BID We will continue to monitor this patient Charges/Coding Visit Charges Inpatient E&M: 94209 Subs Hosp L2
[2024-11-27] MEDS: Ketorolac 30 MG/ML Syringe IV (08:47)
[2024-11-27] MEDS: proMETHazine 25 MG/ML Syringe IM ×2 (08:47→14:31)
[2024-11-27] MEDS: 0.9% Saline Lock 10 ML Syringe IV ×3 (08:47→22:10)
[2024-11-27 08:52] VITALS: BP 126/78; PULSE 80; RESP 20; TEMP 36.1; O2SAT 100
[2024-11-27] MEDS: Insulin Glargine-YFGN 100 UNIT/ML Pen 20 UNIT SC (10:23)
--- NOTE | 2024-11-27 10:42 | NURSING ---
Addendum entered by Jonelle Rodriguez 11/27/24 11:20: CT staff also aware of need for IV placment by spike machine operator Original Note: talked with Amy mental health aides teacher about having Ankita RN placing powerglide IV. aware Doreen RN to call w/ time available. Primary RN and fish house worker aWaRe. Aware per Fernanda MICHELE if unable to place may place midline per Dr. Lr
[2024-11-27] MEDS: Scopolamine 1mg/72hr Patch 1 PATCH TD (10:45)
--- NOTE | 2024-11-27 11:18 | NURSING ---
talked with director sterile processing about IV placement, pt leaving unit for CT now, primary RN and director sterile processing aware- they will do IV placement in radiology department while down there
--- NOTE | 2024-11-27 12:30 | NURSING ---
pt resting in bed, laying on her stomach. male at bedside states he is pt significant other. pt calm, no grimmacing or wincing. pt states what about morphine, the Md said i could have it for pain. informed pt that she said she wasn't having any pain pt states yes, but i will when he leaves informed pt that said nurse is not going to medicate pt just in case and because her significant other leaves, it is for when she is having pain as per md ordered. pt nods head and significant other nods head in agreeance with medication safety.
[2024-11-27 12:56] LABS: Bedside Glucose 197 mg/dL (74-106)
[2024-11-27 13:58] VITALS: BP 120/90; PULSE 90; RESP 18; TEMP 36.7; O2SAT 100
[2024-11-27] MEDS: Pantoprazole Sodium 40 MG in 0.9% Normal Saline (100mL MB+) 100 ML 330 MG IV ×2 (14:00→22:11)
--- NOTE | 2024-11-27 14:27 | CASEMGMT ---
RYNE LUJNA into pt room for assessment, pt crying out stating she is in pain. She declines assessment at this time. Updated pt nurse of pain. RYNE LUJAN to check back.
[2024-11-27] MEDS: Morphine 4 MG/ML Syringe IV (14:31)
[2024-11-27] MEDS: Acetaminophen 325 MG Tablet 650 MG PO (16:08)
[2024-11-27] MEDS: hydrOXYzine PAM 25 MG Capsule PO ×2 (16:08→23:05)
[2024-11-27] MEDS: Dicyclomine 20 MG/2 ML Vial IM ×2 (16:09→23:05)
[2024-11-27 18:06] LABS: Bedside Glucose 147 mg/dL (74-106)
[2024-11-27 19:50] VITALS: BP 133/84; PULSE 74; RESP 16; TEMP 36.6; O2SAT 98
[2024-11-27 23:28] LABS: Bedside Glucose 175 mg/dL (74-106)
[2024-11-28 02:05] VITALS: BP 133/94; PULSE 83; RESP 16; TEMP 36.6; O2SAT 100
[2024-11-28] MEDS: proMETHazine 25 MG/ML Syringe IM (05:03)
[2024-11-28] MEDS: hydrOXYzine PAM 25 MG Capsule PO (05:03)
[2024-11-28 05:06] LABS: Absolute Lymphocyte Count 5.24 X10^3/uL (0.83-4.51); Absolute Neutrophil Count 6.1 X10^3/uL (2.0-7.7); Basophil# 0.07 X10^3/uL; Basophil% 0.6 % (0-1); Eosinophil# 0.06 X10^3/uL; Eosinophils% 0.5 % (0-5); Hemoglobin 12.1 g/dL (12.0-15.0); Lymphocyte # 5.24 X10^3/ul (0.83-4.51); Mean Corp Hgb Conc 32.7 g/dL (32-36); Mean Corpuscular Hgb 27.3 pg (27.0-32.0); Mean Corpuscular Volume 83.3 fL (81-99); Mean Platelet Vol. 9.3 fl (6.2-12.0); Monocyte# 0.65 X10^3/uL; Monocyte% 5.3 % (0-10); NRBC Flagged by Analyzer 0 % (0-5); Neutrophil # 6.08 X10^3/uL (2.7-7.7); Neutrophil % 49.8 % (47-70); POSITIVE DIFFERENTIAL YES; Platelet Count 400 K/mm3 (150-450); RBC Distribution Width CV 13.7 % (11.6-14.6); RBC Distribution Width SD 41.8 fl (35.1-43.9); Red Blood Count 4.44 M/mm3 (4.2-5.4); White Blood Count 12.2 K/mm3 (4.4-11.0)
[2024-11-28] MEDS: oxyCODONE 5 MG Tablet PO ×2 (05:06→09:58)
[2024-11-28] MEDS: Piperacil/Tazobactam 3.375 GM in 0.9% Normal Saline (50mL MB+) 50 ML IV (05:07)
[2024-11-28 05:29] LABS: Bedside Glucose 127 mg/dL (74-106)
[2024-11-28 05:47] LABS: Anion Gap 12 (5-15); BUN 12 mg/dL (4-19); BUN/Creat Ratio 12.2 RATIO (10-20); Calcium,Total 7.9 mg/dL (7.6-11.0); Carbon Dioxide 24.7 mmol/L (21.0-32.0); Chloride 104 mmol/L (98-108); Creatinine, Serum 1.02 mg/dL (0.70-1.20); EST Glomerular Filtration Rate 75 (>60); Estimated Creatinine Clearance 99.83 ml/min (50-250); Glucose 134 mg/dL (70-99); Potassium 3.5 mmol/L (3.3-5.1); Sodium Level 141 mmol/L (133-145)
--- NOTE | 2024-11-28 07:57 | PCM.PN.SRG ---
Subjective Subjective Patient was walking the hallway this morning. She started to cry and complain of abdominal pain in the epigastric region once I approached her. Once we returned to patient room, she notes that her pain is all over and unable to describe the type of pain she is having. She notes not eating because of nausea. She states she has not had a bowel movement since 11/26. Objective Data Objective Data Vital Signs: Vital Signs Temp Pulse Resp BP Pulse Ox O2 Del Method 98 F 83 16 133/94 H 100 Room Air 11/28/24 02:05 11/28/24 02:05 11/28/24 02:05 11/28/24 02:05 11/28/24 02:05 11/28/24 02:05 Oxygen Delivery Method Room Air Weight: 244 lb 1 oz Body Mass Index (BMI) 39.4 Intake & Output: Intake and Output for Last 24 Hours 11/26/24 11/27/24 11/28/24 23:59 23:59 23:59 Intake Total 1810 / 1950 647.51 / 647.51 50 / 50 Output Total 100 / 100 Balance 1710 / 1850 647.51 / 647.51 50 / 50 Lab / Micro Data 11/28/24 04:50 11/28/24 04:50 Labs: Laboratory Results - last 24 hr 11/27/24 04:16: Total Bilirubin 0.35, Direct Bilirubin 0.14, AST 21, ALT 12, Alkaline Phosphatase 88, Total Protein 7.1, Albumin 3.5, Globulin 3.6 11/27/24 12:22: POC Glucose 197 H 11/27/24 16:50: POC Glucose 147 H 11/27/24 23:02: POC Glucose 175 H 11/28/24 04:50: WBC 12.2 H, RBC 4.44, Hgb 12.1, Hct 37.0, MCV 83.3, MCH 27.3, MCHC 32.7, RDW Std Deviation 41.8, RDW Coeff of John 13.7, Plt Count 400, MPV 9.3, Immature Gran % (Auto) 0.800, Neut % (Auto) 49.8, Lymph % (Auto) 43.0 H, [place] % (Auto) 5.3, Eos % (Auto) 0.5, Baso % (Auto) 0.6, Absolute Neuts (auto) 6.1, Absolute Lymphs (auto) 5.24 H, Nucleated RBC % 0, Sodium 141, Potassium 3.5, Chloride 104, Carbon Dioxide 24.7, Anion Gap 12, BUN 12, Creatinine 1.02, Estim Creat Clear Calc 99.83, Est GFR (MDRD) Non-Af 75, BUN/Creatinine Ratio 12.2, Glucose 134 H, Calcium 7.9 11/28/24 05:10: POC Glucose 127 H Micro: Microbiology 11/25/24 13:15 Blood Culture (Wb) - Anticubital Left Blood Culture - Preliminary No growth in 48 hours. 11/25/24 12:16 Blood Culture (Wb) - Anticubital Left Blood Culture - Preliminary No growth in 48 hours. Radiography Diagnostic Testing: Radiology Impression Abdomen/Pelvis CT 11/27/24 08:08 IMPRESSION: Fatty infiltration of the liver. Sludge is seen in the gallbladder lumen. Findings suggestive of colitis involving the rectosigmoid colon. There has been mild improvement as compared to prior study. Reading Location: [facility] Physical Exam GI GI Narrative: Abdomen- soft, nondistended. Pain out of proportion with palpation of abdomen Assessment & Plan Assessment/Plan (1) Colitis: (2) Acute proctitis: (3) Fecal impaction: PLAN: Plan I am following this patient in conjunction with Dr. Welch. Labs reviewed. Recommend daily Miralax Continue oral antibiotics for 7 more days No surgical intervention being recommended Fecal impaction has resolved Most recent CT ab/pel on 11/27 showed rectosigmoid colitis Recommend follow-up with PCP as an outpatient in 1 week Charges/Coding Visit Charges Inpatient E&M: 40199 Subs Hosp L2
[2024-11-28 08:25] VITALS: BP 154/84; PULSE 75; RESP 18; TEMP 36.7; O2SAT 97
--- NOTE | 2024-11-28 09:20 | CASEMGMT ---
RYNE LUJAN Assessment: Face to Face with pt for initial transition planning/care coordination assessment. RN LE introduced self and role at [facility], pt voices understanding and consents to assessment. Pt is A&O x4 and answers all questions appropriately at this time. Pt sitting up in bed moaning in pain. Pt states her nurse is aware. Care providers, pharmacy, and demographics verified/updated. Admitting Dx: stercoral proctocolitis due to severe constipation Strata Score: 3 PCP:Amy Dasilva Specialists:Denies Preferred Pharmacy:[facility] Insurance: [employer] Prescription Benefit: yes LNOK: Manuel Gutierrez, sig other; Rhona Givens, grandmother Living Arrangements: Pt lives with sig other in a single story apt with no steps to enter. Pt reports she is I in ADL/ IADLs and denies concerns at home. Transportation: Pt drives self and denies concerns with transportation. DME:[facility] with sufficient supplies and insulin as well as needles HHC/SNF: Denies hx of HHC, has been to [facility] in the past. Pt states no concerns with going home at time of dc. Pt states no further concerns/needs. CM to follow. Advised pt to ask CM if any further questions/concerns/needs arise, voices understanding. Pt Goal: Home Plan: Home Naima MICHELE CM
[2024-11-28] MEDS: Dicyclomine 20 MG/2 ML Vial IM (09:57)
[2024-11-28] MEDS: 0.9% Saline Lock 10 ML Syringe IV (09:57)
[2024-11-28] MEDS: Acetaminophen 325 MG Tablet 650 MG PO (09:58)
--- NOTE | 2024-11-28 12:03 | PCM.DC.SUM ---
Providers Date of Admission: 11/25/24 Date of Discharge: 11/28/24 Primary Care Physician: BROOKLYN Warren, [employer]-C Consultations 11/25/24 15:14 Consult: General Surgery Routine Consulting Provider: Annalise Welch Reason for Consult: severe constipation, stercoral colitis EMERGENT Consult: No MD Notified: Yes Date Notified: 11/25/24 Time Notified: 13:41 Method of Notification: Text Reason For Visit: STERCORAL PROCTOCOLITIS DUE TO SEVERE CONSTIPATION Diagnosis Discharge Diagnosis (1) Colitis: Status: Acute Code(s): K52.9 - Noninfective gastroenteritis and colitis, unspecified (2) Acute proctitis: Status: Acute Code(s): K62.89 - Other specified diseases of anus and rectum (3) Fecal impaction: Status: Acute Code(s): K56.41 - Fecal impaction Medications at Discharge Home Medications insulin glargine 100 unit/mL (3 mL) subcutaneous pen (Lantus Solostar U-100 Insulin) 20 unit subcut BID diabetes 08/12/22 trazodone 300 mg tablet 200 mg PO QHS PRN insomnia 07/16/23 albuterol sulfate 90 mcg/actuation aerosol inhaler 2 puff inhalation Q4H PRN shortness of breath or wheezing 11/25/24 dulaglutide 4.5 mg/0.5 mL subcutaneous pen injector (Trulicity) 4.5 mg subcut SA 11/25/24 amoxicillin 875 mg-potassium clavulanate 125 mg tablet 1 tab PO BIDCM 7 days #14 tabs 11/28/24 dicyclomine 10 mg/mL intramuscular solution 20 mg (2 mL) IM 4X/DAY #0 mL 11/28/24 polyethylene glycol 3350 17 gram/dose oral powder (ClearLax) 17 g PO DAILY #119 grams 11/28/24 scopolamine base 1 mg over 3 days transdermal patch 1 patch transdermal Q3D #4 ea 11/28/24 tramadol 50 mg tablet 50 mg PO Q8H PRN pain #9 tabs 11/28/24 Hospital Course Operations None Procedures - (CT scan abdomen pelvis x 2) Summary of Care Provided Minutes Spent on Discharge: 37 Hospital Course: Patient is a 34-year-old white female who presented to the emergency department at [facility] on 11/25/2024 with a chief complaint of abdominal pain and constipation. Patient does have a history of diabetes. She stated that she had struggled with constipation over the years and takes laxatives. 3 days prior to presentation she took a laxative due to constipation and subsequently started having diarrhea. She also complained of cramping and was worried that she may have fecal impaction. She also complained of nausea and vomiting. She reported that her abdominal pain was helped by taking walks and getting in the hot shower. She did admit to a history of cannabis use and reported that her last use was probably on Wednesday however she would not 100% certain. Vital signs on presentation showed temperature 96.8, heart rate 112, respiratory 20, blood pressure is 121/91 pulse ox was 99% room air. She had leukocytosis white count of 17.6 hemoglobin was 11 platelets were normal. Chemistry panel was overall unremarkable. UA was not consistent with infection. Acute abdominal series was performed and was consistent with fecal retention in the colon consistent with constipation and CT of the abdomen pelvis showed fecal impaction with wall thickening of the distal colon and rectum suggestive of colitis as well as hepatomegaly with fatty infiltration. The patient was admitted to the medical floor with stercoral proctocolitis and overflow diarrhea in the setting of severe constipation. General surgery was consulted. She was placed on antibiotics with Zosyn and maintained on this course through the hospitalization. She was also placed on laxative and stool softeners, made n.p.o. and given IV fluids. She had several bowel movements with utilization of the stool softener and laxative overnight from 11/26/2024 through 11/27/2024 but was still complaining of nausea and vomiting. This is when I questioned her more about her marijuana use and she admitted the above. She was still complaining of severe abdominal pain so a repeat CT of the abdomen pelvis was performed. 48 hours after admission on 11/27/2024 and showed slight interval improvement in her colitis and fatty infiltration liver with sludge in the gallbladder. No real acute abnormality was noted and her constipation had resolved. Patient took frequent showers when she was hospitalized and walked the hallways without difficulty. On 11/28/2024 I went in to reevaluate her and she appeared comfortable and sleeping when I walked in the room however when she realized I was there she seemed more uncomfortable started writhing around in bed complaining of severe abdominal pain. We discussed the overall plan of care with antibiotics, as needed pain medication and as needed scopolamine patch for discharge and general surgery follow-up to close she should be able to be discharged home with the patient reports she was not able to take p.o. I left the room and the monitor was observed. The patient was then identified sticking her fingers down her throat making herself vomit. She was confronted about this and denied it. When we told her we can see her on the monitor she said I will just fucking leave then. We have advised her to stop smoking marijuana as there is probably a component of cyclic vomiting syndrome. She is to take MiraLAX daily and was written a prescription for antibiotics and all were sent to the pharmacy prior to discharge. She was also given a scopolamine patch to use as needed for nausea and vomiting. She is to call Dr. Torres's office to get outpatient evaluation due to her history of constipation but there is no acute need for colonoscopy while hospitalized. Patient did report some rectal bleeding. Hemoglobin was stable throughout her entire hospital stay and this was never witnessed by nursing. She is also to follow-up with her primary care physician and prior to discharge I was able to discuss the case with her primary nurse practitioner Amy Dasilva. Discharge diagnoses: Acute stercoral colitis Self-induced nausea and vomiting Abdominal pain Fecal impaction-resolved Marijuana induced cyclic vomiting syndrome Leukocytosis DM-2 with hyperglycemia Anxiety Insomnia Asthma Obesity Physical Exam Const alert, oriented x3, no limitations and well nourished; Negative for no apparent distress, average body habitus or healthy appearing Constitutional Narrative: Obese, young middle-aged, white female, lying in bed sleeping when I walk in however after my arrival starts rolling around in bed complaining of severe abdominal pain. Appeared to be comfortable until she realized I was in the room General Appearance: cooperative, comfortable, well kempt and well developed HEENT normocephalic, head/scalp atraumatic, hearing grossly normal bilaterally and moist oral mucous membranes Neck supple Neck Narrative: Neck is short and thick, trachea midline Resp normal respiratory effort, normal air movement, no retractions, no use of accessory muscles and clear to auscultation bilaterally Auscultation: Negative for rales, rhonchi or wheezes Cardio regular rate, regular rhythm, S1 normal heart sound, S2 normal heart sound, no murmurs, no rub, no gallops and no clicks GI normal to inspection, nondistended, normoactive bowel sounds and soft to palpation GI Narrative: Diffusely tender, pain seems out of proportion to clinical exam Extremity no clubbing, cyanosis or edema Extremity Narrative: 2+ pedal and radial pulses Neuro oriented x3, moves all extremities and no focal motor deficits Psych Psych Narrative: Affect is flat, markedly anxious Weight / BMI Weight Weight: 110.705 kg Body Mass Index (BMI) 39.4 ABG / Lab / Microbiology Data 11/28/24 04:50 11/28/24 04:50 Laboratory: Laboratory Results - last 24 hr 11/27/24 12:22: POC Glucose 197 H 11/27/24 16:50: POC Glucose 147 H 11/27/24 23:02: POC Glucose 175 H 11/28/24 04:50: WBC 12.2 H, RBC 4.44, Hgb 12.1, Hct 37.0, MCV 83.3, MCH 27.3, MCHC 32.7, RDW Std Deviation 41.8, RDW Coeff of John 13.7, Plt Count 400, MPV 9.3, Immature Gran % (Auto) 0.800, Neut % (Auto) 49.8, Lymph % (Auto) 43.0 H, [place] % (Auto) 5.3, Eos % (Auto) 0.5, Baso % (Auto) 0.6, Absolute Neuts (auto) 6.1, Absolute Lymphs (auto) 5.24 H, Nucleated RBC % 0, Sodium 141, Potassium 3.5, Chloride 104, Carbon Dioxide 24.7, Anion Gap 12, BUN 12, Creatinine 1.02, Estim Creat Clear Calc 99.83, Est GFR (MDRD) Non-Af 75, BUN/Creatinine Ratio 12.2, Glucose 134 H, Calcium 7.9 11/28/24 05:10: POC Glucose 127 H Microbiology: Microbiology 11/25/24 13:15 Blood Culture (Wb) - Anticubital Left Blood Culture - Preliminary No growth in 48 hours. 11/25/24 12:16 Blood Culture (Wb) - Anticubital Left Blood Culture - Preliminary No growth in 48 hours. Radiography Diagnostic Testing: Radiology Impression Abdomen/Pelvis CT 11/27/24 08:08 IMPRESSION: Fatty infiltration of the liver. Sludge is seen in the gallbladder lumen. Findings suggestive of colitis involving the rectosigmoid colon. There has been mild improvement as compared to prior study. Reading Location: [place] [address] D/C Instructions Discharge Diet: 1800 Calorie Control Diet Discharge Activity: Return to Normal Activity Return to work on: 11/29/24 DC O2, CPAP, BIPAP Needs Home O2 Discharge instructions: No Meaningful Use Info Meaningful Use Meaningful Use Diagnoses (Choose all that apply): None applicable Ischemic Stroke Statin Dosing Therapy Reference: STATIN DOSE THERAPY REFERENCE: * Patients > 75 years receive moderate or high dose statin therapy. * Patients 75 years or YOUNGER should receive HIGH intensity statin dose unless contraindicated. You will be required to document reason for non-treatment if statin daily dose does not meet guidelines. HIGH DOSE STATIN THERAPY DAILY Atorvastatin > than or = to 40 mg Rosuvastatin > than or = to 20 mg Amlodipine + Atorvastatin > than or = to 2.5/40 mg Ezetimibe + Simvastatin 10/80 mg Simvastatin 80mg Discharge Plan Admission Admit Date/Time: 11/25/24 13:38 Primary Reason for Your Visit: Abdominal pain/nausea Attending Provider: Gale Lr Primary Care Provider: Amy Dasilva [facility] Consulting Providers: Annalise Welch; Brenda Rao Instructions Additional Instructions / Restrictions: 1. Recommend complete abstinence from marijuana 2. Complete entire course of antibiotics as prescribed 3. Call Dr. Torres's office and get an appointment to be seen as directed Discharge Orders/Prescriptions Prescriptions: New amoxicillin-pot clavulanate 875-125 mg Tablet 1 tab PO BIDCM 7 Days Qty: 14 0RF scopolamine base 1 mg over 3 days Patch 3 Day 1 patch transdermal Q3D Qty: 4 0RF dicyclomine 10 mg/mL Solution 20 mg IM 4X/DAY Qty: 0 0RF polyethylene glycol 3350 [ClearLax] 17 gram/dose powder 17 g PO DAILY Qty: 119 0RF tramadol 50 mg tablet 50 mg PO Q8H PRN (Reason: pain) Qty: 9 0RF Continued insulin glargine [Lantus Solostar U-100 Insulin] 100 unit/mL (3 mL) insulin pen 20 unit SUBCUT BID Patient Comments: PT HAS BEEN TAKING 35-40 UNITS TWICE DAILY trazodone 300 mg tablet 200 mg PO QHS PRN (Reason: insomnia) albuterol sulfate 90 mcg/actuation HFA aerosol inhaler 2 puff INHALATION Q4H PRN (Reason: shortness of breath or wheezing) Trulicity 4.5 mg/0.5 mL pen injector 4.5 mg subcut SA Referrals / Follow Up: Venkatesh Torres DO [Med Staff - Active Staff] - Within 2 Weeks (Please call today or tomorrow to set up appointment) Amy Dasilva, ST[employer] MARKER-C [Primary Care Provider] - In 1 Week Disposition Disposition (needs filled in before D/C Order can be placed): Home, Self Care Charges/Coding Visit Charges Inpatient E&M: 82948 Disch Hosp >30min
[2024-11-28 13:00] VITALS: BP 156/96; PULSE 60; RESP 18; TEMP 36.6; O2SAT 99
--- NOTE | 2024-11-28 13:05 | NURSING ---
Pt reports that her ride will not be able to pick her up until 190 on 11/28/24
== END 2024-11-28 13:32 | disposition home or self-care (01) | DRG 249 ==
LOC: ED 13:21 → MS3 14:04
PROVIDERS: Admitting Provider Student in an Organized Health Care Education/Training Program; Emergency Provider Emergency Medicine; PCP Nurse Practitioner Family; Visit Provider Internal Medicine
DX: K52.89 Other specified noninfective gastroenteritis and colitis (principal); D72.829 Elevated white blood cell count, unspecified; E11.42 Type 2 diabetes mellitus with diabetic polyneuropathy; E66.812 Obesity, class 2; E11.65 Type 2 diabetes mellitus with hyperglycemia; F12.288 Cannabis dependence with other cannabis-induced disorder; J45.909 Unspecified asthma, uncomplicated; K76.0 Fatty (change of) liver, not elsewhere classified; F60.3 Borderline personality disorder; K56.41 Fecal impaction; Z79.4 Long term (current) use of insulin; K62.89 Other specified diseases of anus and rectum; F41.9 Anxiety disorder, unspecified; R11.15 Cyclical vomiting syndrome unrelated to migraine; K82.8 Other specified diseases of gallbladder; Z68.39 Body mass index [BMI] 39.0-39.9, adult; Z83.3 Family history of diabetes mellitus; G47.00 Insomnia, unspecified
CPT/HCPCS: 36415; 74018; 74022; 74177; 80048; 80076; 81001; 82962; 83605; 84703; 85025; 87040; 94640; 99285; Q9967; A4216; J2405

== ENCOUNTER → 2024-12-13 | Outpatient (CLI) | payer MEDICAID, SELFPAY ==
[2024-12-13 10:05] LABS: Absolute Lymphocyte Count 3.52 X10^3/uL (0.83-4.51); Basophil# 0.08 X10^3/uL; Basophil% 0.8 % (0-1); Eosinophil# 0.19 X10^3/uL; Hematocrit 40.5 % (37-47); Hemoglobin 13.2 g/dL (12.0-15.0); Lymphocyte # 3.52 X10^3/ul (0.83-4.51); Lymphocyte % 36.7 % (19-41); Mean Corp Hgb Conc 32.6 g/dL (32-36); Mean Corpuscular Hgb 27.1 pg (27.0-32.0); Mean Corpuscular Volume 83.2 fL (81-99); Mean Platelet Vol. 10.1 fl (6.2-12.0); Monocyte# 0.72 X10^3/uL; Monocyte% 7.5 % (0-10); NRBC Flagged by Analyzer 0 % (0-5); Neutrophil # 5.01 X10^3/uL (2.7-7.7); Neutrophil % 52.2 % (47-70); Platelet Count 367 K/mm3 (150-450); RBC Distribution Width SD 42.3 fl (35.1-43.9); Red Blood Count 4.87 M/mm3 (4.2-5.4); White Blood Count 9.6 K/mm3 (4.4-11.0)
[2024-12-13 10:36] LABS: ALB/GLOB Ratio 1.2 RATIO (0.9-2.4); AST(SGOT) 37 U/L (<=31); Alanine Aminotransfer ALT/SGPT 36 U/L (<=34); Albumin, Serum 3.8 g/dL (3.5-5.0); Alkaline Phosphatase 100 U/L (35-104); Anion Gap 13 (5-15); BUN 5 mg/dL (4-19); BUN/Creat Ratio 6.2 RATIO (10-20); Calcium,Total 8.8 mg/dL (7.6-11.0); Carbon Dioxide 26.2 mmol/L (21.0-32.0); Chloride 99 mmol/L (98-108); Creatinine, Serum 0.86 mg/dL (0.70-1.20); EST Glomerular Filtration Rate 92 (>60); Globulin 3.3 g/dL (2.2-4.2); Glucose 251 mg/dL (70-99); Protein, Total 7.2 g/dL (5.9-8.4); Sodium Level 139 mmol/L (133-145)
== END | disposition home or self-care (01) ==
LOC: LAB 09:12
PROVIDERS: PCP Nurse Practitioner Family; Referring Provider Student in an Organized Health Care Education/Training Program; Visit Provider Student in an Organized Health Care Education/Training Program
DX: K52.9 Noninfective gastroenteritis and colitis, unspecified (principal); R11.2 Nausea with vomiting, unspecified
CPT/HCPCS: 36415; 80053; 85025

== ENCOUNTER → 2024-12-25 | Outpatient (CLI) | payer MEDICAID, SELFPAY ==
--- NOTE | 2024-12-25 07:26 | US_ITS ---
PROCEDURE: ABDOMEN LIMITED 12/25/2024 REASON FOR EXAM: ELEVATED LFTS TECHNIQUE: Complete abdominal ultrasound garcia-scale images with color doppler. PATIENT PREPARATION: Per protocol COMPARISON: CT scan on 11/27/2024. FINDINGS: The liver measures 16.1 cm. Increased hepatic echogenicity suggestive of hepatic steatosis. Mildly heterogeneous hepatic echotexture. Unremarkable flow in the main portal vein. Mildly distended gallbladder measuring 10.3 cm. No evidence of pericholecystic free fluid. Negative sonographic Morris. No evidence of cholelithiasis. Normal gallbladder wall thickness measuring 3 mm. Nondilated common bile duct measuring 6 mm. Unremarkable visualized pancreas. Unremarkable right kidney measuring 12.5 x 6.5 x 5 cm. Normal right renal cortical thickness measuring 1.5 cm. No evidence of hydronephrosis or calculi. US/Abdomen Limited IMPRESSION: Hepatic steatosis. Mildly heterogeneous hepatic echotexture. No evidence of cholelithiasis or acute cholecystitis. Reading [facility]
== END | disposition home or self-care (01) ==
LOC: US 07:24
PROVIDERS: PCP Nurse Practitioner Family; Visit Provider Student in an Organized Health Care Education/Training Program
DX: R79.89 Other specified abnormal findings of blood chemistry (principal)
CPT/HCPCS: 76705

== ENCOUNTER 2024-12-30 10:22 | Inpatient (IN) | payer MEDICAID, SELFPAY ==
[2024-12-30] VITALS (16 sets, daily range): BP systolic 95–157; BP diastolic 32–111; PULSE 78–97; RESP 15–23; TEMP 36.3–36.7; O2SAT 95–100; BMI 37.7; BMI 38.4
--- NOTE | 2024-12-30 10:39 | EDS_ITS ---
HPI History of Present Illness Chief Complaint: Nausea/Vomiting Informant: patient Narrative Narrative: Presents recurrent vomiting last 2 days. Yesterday states mild dark blood. Today none. History of cyclic vomiting. History of marijuana use however states last use was a month ago. 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 She has follow-up with GI couple weeks ago upper and lower endoscopy next month along with repeat gastric emptying test. She is a diabetic. She is put on the Linzess due to constipation. She has been having bowel movements up 2 days ago states started using some chocolate Ex-Lax and had some loose stools today. She started hot showers with no relief. She is currently not on a PPI, denies any allergies. Large emesis in the emergency department of 600 cc per nursing that was clear. Prior similar symptoms: Yes PFSH PFSH Medical History Diabetes GERD (gastroesophageal reflux disease) Wears glasses History of MRSA infection Borderline personality disorder Alcohol use Insulin dependent diabetes mellitus Dietary restriction Heartburn Smoker Shortness of breath on exertion Leg cramps Type 2 diabetes mellitus with peripheral neuropathy Neuropathy, diabetic Elevated serum creatinine Failure of outpatient treatment Nausea and vomiting Diabetes mellitus with diabetic polyneuropathy Type 2 diabetes mellitus with foot ulcer Anxiety Depression Constipation Asthma Diabetes Home Medications ?Medication ?Instructions ?Recorded ?Last Taken ?Type insulin glargine 100 unit/mL (3 20 unit subcut BID doreen betes 08/12/22 12/29/24 History mL) subcutaneous pen (Lantus Solostar U-100 Insulin) albuterol sulfate 90 mcg/actuation 2 puff inhalation Q 4H PRN 11/25/24 Unknown History aerosol inhaler shortness of breath or wheez ing dulaglutide 4.5 mg/0.5 mL 4.5 mg subcut SA 11/25/24 History subcutaneous pen injector (Trulicity) linaclotide 145 mcg capsule 145 mcg PO QAM #30 caps 12/29/24 Rx (Linzess) Allergy/AdvReac Type Severity Reaction Status Date / Time No Known Allergies Allergy Verified 12/30/24 10:23 Family History Other Bleeding disorder Cancer Diabetes Hypertension Surgical History Hx of foot surgery Hx of foot surgery Social History Smoking Status: Former smoker alcohol intake: never substance use type: does not use what type of physical activity do you participate in: none ROS ROS ED Constitutional Constitutional ED: Denies chills, fever(s) or sweats ENT ENT ED: Denies sore throat Cardiovascular Cardiovascular: Denies chest pain, leg edema, palpitations or racing heartbeat Respiratory/Chest Respiratory/Chest: Denies cough, dyspnea or dyspnea on exertion Gastrointestinal Gastrointestinal: Reports nausea and vomiting; Denies abdominal pain or diarrhea Genitourinary Genitourinary ED: Denies dysuria, hematuria or urinary frequency Musculoskeletal Musculoskeletal: Denies back pain, extremity pain or neck pain Integumentary Denies rash or wounds Neurologic Neurologic: Denies headache(s), paresthesias or weakness EXAM Physical Exam Const Vital Signs: 12/30/24 10:25 12/30/24 12:26 Temperature 97.4 F L Temperature Source Oral Pulse Rate 97 94 Respiratory Rate 18 Blood Pressure 133/96 H 126/93 H Blood Pressure Mean 108 104 Pulse Ox 96 Oxygen Delivery Method Room Air Positive well nourished and well developed General Appearance ED: well developed and NAD HEENT Reports moist mucous membranes normocephalic and atraumatic Eyes General Eye ED: Yes normal appearance of both eyes Neck full ROM Chest Wall Chest: Negative for tenderness Resp normal respiratory effort and normal air movement Effort and Inspection: symmetric chest movement; Negative for respiratory distress Cardio regular rate, regular rhythm and no murmurs Peripheral Pulses: pulses 2+ throughout GI normal to inspection, nondistended, normoactive bowel sounds and non-tender Palpation: Negative for guarding or rebound tenderness present Extremity normal to inspection General Extremety ED: Negative for edema or tenderness General Extremity: Negative for edema Neuro oriented x3 and no sensory deficits noted Sensorium / Orientation: awake and alert Skin no rashes or lesions noted and no wounds MDM MDM MDM Narrative Medical decision making narrative: Interventions / MDM: Differential diagnosis: Cyclic vomiting, diabetic ketoacidosis Diagnosis considered but do not suspect: Nonsurgical abdomen. My EKG interpretation: N/A Imaging independently reviewed and interpreted by myself: N/A External documents reviewed: N/A Test considered but not ordered:N/A ED course: History of cyclic vomiting reported last use of marijuana a month ago. Will check abdominal labs, check toxicology screen. Nonsurgical abdomen at this time. Reported bowel movement today with Ex-Lax. Denies bloody stools. No bloody emesis per nursing today. IV fluids cyclic vomiting orders use with Ativan Zofran and Pepcid. Patient did agree to try capsaicin topical. 1155: Labs white count 13.3 creatinine 1.22. Creatinine 17 days ago 0.86. Glucose 359 in the lab with gap acidosis of 20. Beta hydroxybutyrate added. Lipase normal. Clinically feeling better with the cocktail. She has no urine symptoms no cough or concerns for infectious causes. She states since her last admission she was taken off Trulicity only on Lantus therefore likely suboptimal treatment with her glucose at home. Ordered for additional fluids for concerns for DKA, insulin drip started. Abdomen remains soft, I do not feel images are necessary. I will speak to hospitalist service for admission. 1228: I spoke with hospitalist Dr. Bain for admission to ICU. 1230: Nursing reporting requesting nausea and pain medicines. Will order for Levsin and Reglan. Re-evaluation: stable Disposition discussed with patient/family/significant other: Patient Case discussed with consulting clinician: Hospitalist This note was generated with [employer] dictation software. It may contain incorrect words, spelling, and punctuation that were not noted in checking the note before signing. Lab Data Attestation: I reviewed the patient's lab results. Labs: Laboratory Results - last 24 hr 12/30/24 12/30/24 10:50 11:32 WBC 13.3 H RBC 4.79 Hgb 13.2 Hct 39.2 MCV 81.8 MCH 27.6 MCHC 33.7 RDW Std Deviation 41.4 RDW Coeff of John 14.3 Plt Count 430 MPV 9.7 Immature Gran % (Auto) 0.600 Neut % (Auto) 70.7 H Lymph % (Auto) 23.6 [place] % (Auto) 4.8 Eos % (Auto) 0.0 Baso % (Auto) 0.3 Absolute Neuts (auto) 9.4 H Absolute Lymphs (auto) 3.14 Nucleated RBC % 0 Sodium 137 Potassium 3.4 Chloride 97 L Carbon Dioxide 19.2 L Anion Gap 20 H BUN 14 Creatinine 1.22 H Estim Creat Clear Calc 81.50 Est GFR (MDRD) Non-Af 60 BUN/Creatinine Ratio 11.1 Glucose 359 H Serum Osmolality 302 H Calcium 9.7 Phosphorus 1.5 L Magnesium 1.8 Total Bilirubin 0.65 AST 16 ALT 12 Alkaline Phosphatase 91 Total Protein 8.6 H Albumin 4.2 Globulin 4.4 H Albumin/Globulin Ratio 0.9 Lipase 25 b-Hydroxybutyric mmol/L 0.3 Serum , Qual NEGATIVE Urine Color Yellow Urine Clarity Sl. Cloudy Urine pH 5.0 Ur Specific [place] 1.025 Urine Protein 30 H Urine Glucose (UA) 1000 H Urine Ketones 50 H Urine Occult Blood 10 H Urine Nitrite Negative Urine Bilirubin 3 H Urine Urobilinogen 1 H Ur Leukocyte Esterase 500 H Urine RBC 0 SEEN Urine WBC 5-10 SEEN Ur Squamous Epith Cells 10-25 SEEN Urine Bacteria 0 SEEN Urine Mucus 0 SEEN Urine Opiates Screen NEGATIVE U Buprenorphine Qual NEGATIVE Ur Oxycodone Screen NEGATIVE Urine Methadone Screen NEGATIVE Urine Fentanyl Screen NEGATIVE Ur Barbiturates Screen NEGATIVE Ur Phencyclidine Scrn NEGATIVE Ur Amphetamines Screen NEGATIVE U Benzodiazepines Scrn NEGATIVE Urine Cocaine Screen NEGATIVE U Cannabinoids Screen PRESUMPTIVE POSITIVE Critical Care Time Critical Care Time: Yes Critical care time (excluding procedures): 30-74 minutes, Discussing w/Patient &/or Family/Personal Injury Specialist, Arranging Admission or Transfer, Performing Direct Patient Care at Bedside and - (35 minutes) Discharge Plan Dx/Rx/DC Orders Clinical Impression: Diabetic ketoacidosis, Cyclic vomiting syndrome, History of diabetes mellitus, NAI (acute kidney injury) Disposition Disposition: Acute Care Hospital [facility] Discharge Date/Time: 12/30/24 13:08
[2024-12-30] MEDS: 0.9% Normal Saline (1000mL) 1,000 ML 1000 ML IV (10:50)
[2024-12-30] MEDS: Lorazepam 2 MG/ML WCH Syringe 0.5 MG IV (10:50)
[2024-12-30] MEDS: Ondansetron 4 MG/2 ML Vial IV (10:50)
[2024-12-30] MEDS: Famotidine 200 MG/20 ML MDV 20 MG in 0.9% Normal Saline (Pres. free 8 ML 300 MG IV (10:56)
[2024-12-30] MEDS: Capsaicin 0.025% 1 APPLIC Tube TOPICAL (10:56)
[2024-12-30 10:59] LABS: Absolute Lymphocyte Count 3.14 X10^3/uL (0.83-4.51); Absolute Neutrophil Count 9.4 X10^3/uL (2.0-7.7); Basophil# 0.04 X10^3/uL; Basophil% 0.3 % (0-1); Hematocrit 39.2 % (37-47); Hemoglobin 13.2 g/dL (12.0-15.0); Lymphocyte # 3.14 X10^3/ul (0.83-4.51); Lymphocyte % 23.6 % (19-41); Mean Corp Hgb Conc 33.7 g/dL (32-36); Mean Corpuscular Hgb 27.6 pg (27.0-32.0); Mean Corpuscular Volume 81.8 fL (81-99); Mean Platelet Vol. 9.7 fl (6.2-12.0); Monocyte# 0.64 X10^3/uL; Monocyte% 4.8 % (0-10); NRBC Flagged by Analyzer 0 % (0-5); Neutrophil # 9.42 X10^3/uL (2.7-7.7); Neutrophil % 70.7 % (47-70); Platelet Count 430 K/mm3 (150-450); RBC Distribution Width CV 14.3 % (11.6-14.6); RBC Distribution Width SD 41.4 fl (35.1-43.9); Red Blood Count 4.79 M/mm3 (4.2-5.4); White Blood Count 13.3 K/mm3 (4.4-11.0)
--- OUTSIDE RECORDS SUMMARY | 2024-12-30 11:02 | XMS RPT_ITS | CCD ---
Author Organization [facility] Care Team Providers Care Home Manager Name Role Phone Care Physician, No Primary Primary Care Provider Unavailable Care Physician, No Primary Referring Provider Un available Friend, Dr. Riddle Attending Provider Unavailable Primary Care Provider MIGUEL A Kraus Attending Provider Dr. Fabricio Guevara Emergency Provider Dr. Rickey Gifford Attending Provider Dr. Rickey Gifford Admit Provider Dr. Rickey Gifford Other Provider Dr. Andres Matias Other Provider Dr. Marc Nick Attending Provider Dr. Marc Nick Other Provider Dr. Charles Green Other Provider Care Physician, No Primary Primary Care Provider Unavailable Dr. Fabricio Guevara Emergency Provider Dr. Rickey Gifford Attending Provider Dr. Rickey Gifford Admit Provider Dr. Rickey Gifford Other Provider Dr. Andres Matias Other Provider Dr. Marc Nick Attending Provider Dr. Marc Nick Other Provider Dr. Charles Green Other Provider [phone] Dr. Sophy Gibbons Primary Care Provider MD Drew Hinson Emergency Provider Maira, Dr. Brenda Ng Admit Provider Maira, Dr. Brenda Ng Attending Provider Maira, Dr. Brenda Ng Other Provider Dr. Gale Lr Attending Provider Dr. Gale Lr Other Provider Dr. Andres Matias Other Provider Norma, Dr. Soto Other Provider Dr. Alex Christiansen Emergency Provider Trishhaysjuventino, Dr. [place] Admit Provider Trishhaysjuventino, Dr. [place] Attending Provider Carlitos, Dr. [place] Other Provider Dr. Lexus Villatoro Attending Provider Dr. Lexus Villatoro Other Provider Unavailable Primary Care Provider Unavailarpita e Rashad SHIPFITTERS SUPERVISOR, Amy Primary Care Provider [facility] Pro vider Dr. Willie Dhillon Emergency Provider Dr. Lexus Villatoro Admit Provider Dr. Lexus Villatoro Attending Provider Dr. Lexus Villatoro Other Provider ABDIRIZAK RAMIREZ Attending Unavailable RASHAD AMY Primary Care Unavailable Rashad Amy Primary Care Provider RASHAD DIAMOND SORTER-AVIONIC TECHNICIAN, [facility] Primary Care Physicia n DEWAYNE CHACON DO Attending Unavailable DEWAYNE CHACON DO Primary Care Unavailable DEWAYNE CHACON DO Admitting Unavailable ASUNCIONGERALDINE Admitting Unavailable ASUNCIONGERALDINE PENN Attending Unavailable ASUNCIONGERALDINE MAURICE Primary Care Unavailable [facility] Care Pro vider Dr. Willie Dhillon Emergency Provider Dr. Lexus Villatoro Admit Provider Dr. Lexus Villatoro Attending Provider Dr. Lexus Villatoro Other Provider BUCKYTed ESSIE Attending Unavailable RICARDO GERALDINE Referring Unavailable RASHAD DIAMOND SORTER-AVIONIC TECHNICIAN, AMY Primary Care Unava fanny WEBB DIAMOND SORTER-AVIONIC TECHNICIAN, MARTI Matthews Attending HELENA Villa Admitting Unavailable Care Physician, No Primary Primary Care Provider Unavailable Dr. Javy Doss Emergency Provider Dr. Rickey Gifford Attending Provider Dr. Abdirizak Forrest Other Provider Dr. Rickey Gifford Admit Provider Dr. Rickey Gifford Other Provider Dr. Rickey Gifford Referring Provider Care Physician, No Primary Primary Care Provider Unavailable Dr. Javy Doss Emergency Provider Dr. Rickey Gifford Attending Provider Dr. Abdirizak Forrest Other Provider Dr. Rickey Gifford Admit Provider Dr. Rickey Gifford Other Provider Rashad SHIPFITTERS SUPERVISOR, Amy Primary Care Provider Care Physician, No Primary Primary Care Provider Unavailable Dr. Javy Doss Emergency Provider Dr. Rickey Gifford Attending Provider Dr. Abdirizak Forrest Other Provider Dr. Rickey Gifford Admit Provider Dr. Rickey Gifford Other Provider Rashad SHIPFITTERS SUPERVISOR, [facility] Primary Care Provider SRIRAM KAMKATIA Admitting Unavailable KELLEY LOPEZ Attending Unavailable AMY SOLORZANO Primary Care Unavailable CAYETANO TAI Unavailable Unavailable Primary Care Provider Unavailabl e RASHAD, AMY Primary Care Unavailable IRAIS HANNA Referring Unavailable RASHAD, AMY Primary Care Unavailable RASHAD, AMY Primary Care Unavailable Rashad SHIPFITTERS SUPERVISOR-C, Amy Primary Care Provider Rashad SHIPFITTERS SUPERVISOR-C, Amy Attending Provider Lon DPM, Dr. Rothman Attending Provider Lon DPM, Dr. Rothman Referring Provider Sravan BOYCE, Drew Emergency Provider Maira BOYCE, Dr. Brenda Ng Admit Provider Maira BOYCE, Dr. Brenda Ng Attending Provider Maira BOYCE, Dr. Brenda Ng Other Provider Yuri BOYCE, Dr. Woody Other Provider Be KIM, Dr. Beasley Attending Provider Yuri BOYCE, Dr. Woody Attending Provider Maira BOYCE, Dr. Brenda Ng Attending Provider Be KIM, Dr. Beasley Other Provider Clare Loo PA-C Attending Provider [phone] Yuliya BOYCE, Dr. Tony Peterson Attending Provider [phone] Be KIM, Dr. Beasley Referring Provider Clare Loo PA-C Attending Provider Rashad SHIPFITTERS SUPERVISOR-C, Amy Referring Provider Nayana Grigsby Attending Provider Nayana Grigsby Referring Provider Kalee Peter Referring Provider Unavailable [facility], Amy Referring Unavailabl e Nayana Peter Attending Unavailable Rashad [facility], Amy Primary Care Unavailabl e Maira, Brenda Berenice Admitting Unavailable Annalise Welch Consulting Unavailable Gale Lr Attending Unavailable [facility], Amy Primary Care Unavailabl e Maira, Brenda Berenice Consulting Unavailable Gale Lr Consulting Unavailable Annalise Welch Attending Unavailable Gale Lr Referring Unavailable Clare Steve Attending Unavailable Brenda Rao Attending Unavailable [facility], [facility] Unavailabl Nayana Dangelo Attending Unavailable Kalee Peter Referring Unavailable [facility] Unavailabl e [facility], Amy Attending UnavailAbdirizak Ayala Referring Unavailable Abdirizak Forrest Attending Unavailable [facility] Unavailabl e [facility] Unavailabl e [facility], Amy Attending Unavailabl e Maira Brenda Berenice Admitting Unavailable RobotAnnalise stone Consulting Unavailable Gale Lr Attending Unavailable [facility] Unavailabl e Maira, Brenda Berenice Consulting Unavailable [facility] Unavailarpita e Nayana Peter Attending Unavailable Nayana Peter Referring Unavailable Abdirizak Forrest Referring Unavailable Abdirizak Forrest Attending Unavailable [facility] Unavailabl e [facility] Unavailabl e Venkatesh Torres Attending Unavailable Nayana Peter Attending Unavailable Nayana Peter Referring Unavailable [facility] Unavailabl e Allergies Allergy Classification Reported Allergen(s) Allergy Type Date of Onset Reaction(s) Facility (2 sources) Cephalexin Drug Allergy 10-31-2013 Other: See Comments [facility] Work Phone: Medications Current Medications Medication Drug Class(es) Dates Sig (Normalized) Sig (Original) [id number] 200 actuat albuterol 0.09 mg/actuat metered dose inhaler (20 sources) beta2-Adrenergic Agonist Start: 11-25-2024 Albuterol Sulfate 90 mcg/actuation HFA aerosol inhaler Active 2 NMA INHALATION Q4H as needed for shortness of breath or wheezing November 25, 2024 12:00am Start: 04-06-2022 End: 06-27-2023 Albuterol Sulfate (Ventolin Hfa) 90 mcg/actuation HFA aerosol inhaler Discontinued 1 NMA INHALATION Q4H April 06, 2022 12:00am June 27, 2023 6:51am Start: 04-06-2022 End: 06-27-2023 Albuterol Sulfate (Ventolin Hfa) 90 mcg/actuation HFA aerosol inhaler Discontinued 1 INH INHALATION Q4H April 06, 2022 12:00am June 27, 2023 6:51am Start: 04-06-2022 End: 06-27-2023 Start: 03-23-2022 End: 02-20-2023 take 2 puff(s) by inhalation every four hours as needed albuterol HFA (PROAIR HFA) 90 mcg/actuation inhaler Indications: Mild intermittent asthmatic bronchitis without complication Inhale 2 Puffs as instructed every 4 hours as needed. 18 g 02/20/2023 Active Start: 03-10-2019 End: 03-23-2022 take 2 puff(s) by inhalation every four hours as needed albuterol HFA (PROAIR HFA) 90 mcg/actuation inhaler Indications: Mild intermittent asthmatic bronchitis without complication Inhale 2 Puffs as instructed every 4 hours as needed. 1 Inhaler 03/10/2019 03/23/2022 Discontinued Comment on above: Inhale 2 Puffs as in structed every 4 hours as needed. amoxicillin 875 mg / clavulanate 125 mg oral tablet (20 sources) Penicillin-class Antibacterial Start: 11-28-2024 Amoxicillin-Pot Clavulanate 875-125 mg Tablet Active 1 {tbl} PO TWICE DAILY WITH MEALS 22 01November 28, 2024 12:00am Start: 07-02-2023 Start: 05-09-2023 End: 06-25-2023 Amoxicillin-Pot Clavulanate 875-125 mg tablet Discontinued 1 {tbl} PO Q12H May 09, 2023 12:00am June 25, 2023 10:35am Start: 05-09-2023 End: 06-25-2023 take 1 tablet by mouth every twelve hours Amoxicillin-Pot Clavulanate Discontinued 1 TABLET PO Q12H May 09, 2023 12:00am June 25, 2023 10:35am Start: 05-09-2023 End: 06-25-2023 Start: 02-26-2023 End: 05-04-2023 Amoxicillin-Pot Clavulanate 875-125 mg tablet Discontinued 1 {tbl} PO TWICE A DAY 22 01February 26, 2023 12:00am May 04, 2023 1:23pm Start: 02-26-2023 End: 05-04-2023 take 1 tablet by mouth twice daily Amoxicillin-Pot Clavulanate Discontinued 1 TABLET PO TWICE A DAY 14 February 26, 2023 12:00am May 04, 2023 1:23pm Start: 02-26-2023 End: 05-04-2023 Start: 06-29-2022 take 1 tablet by balbir twice daily Amoxicillin-Pot Clavulanate Active 1 TABLET PO TWICE A DAY June 29, 2022 12:00am azithromycin 250 mg oral tablet (3 sources) Macrolide Antimicrobial Start: 06-26-2024 azithromycin (ZITHRO MAX Z-QUITA) 250 mg tablet Indications: Bronchopneumonia Take 2 tablets (500 mg) by mouth on day 1, then take 1 tablet (250 mg) by mouth for 4 days. 6 tablet 06/26/2024 Active bacitracin 0.5 unt/mg topical ointment (13 sources) Start: 02-20-2023 bacitracin 500 unit/gram ointment Apply to affected area twice daily. 02/20/2023 Active Comment on above: Apply to affected ar ea twice daily. bacitracin 0.5 unt/mg / polymyxin b 10 unt/mg ophthalmic ointment (1 source) Polymyxin-class Antibacterial Start: 07-02-2023 cephalexin 500 mg oral capsule (20 sources) Cephalosporin Antibacterial Start: 02-11-2023 End: 02-18-2023 cephalexin 500 mg oral capsule Dose : 500 mg = 1 cap(s), Oral, QID, X 7 day(s), # 28 cap(s), 0 Refill(s), 02/18/23 5:07:00 PM EDT, Pharmacy: [id number], 169.9, cm, 02/11/23 1:49:00 EDT, Height, 94.4, kg, 02/11/23 1:49:00 EDT, Dosing Weight Start Date: 02/11/23 Stop Date: 02/18/23 Status: Ordered Start: 01-24-2023 End: 2023 take 1 capsule by mouth twice daily cephalexin (Keflex) 500 MG capsule Take 1 capsule (500 mg) by mouth 2 times daily for 5 days. 10 capsule 0 01/24/2023 2023 Active Start: 11-19-2022 End: 01-15-2023 take 1 capsule by mouth three times daily Cephalexin 500 mg capsule Discontinued 500 mg PO THREE TIMES A DAY 21 November 19, 2022 12:00am January 15, 2023 2:08pm Start: 11-19-2022 End: 01-15-2023 Start: 10-08-2022 End: 10-15-2022 take 1 capsule by mouth three times daily cephALEXin (KEFLEX) 500 mg capsule Take 1 capsule by mouth three times daily for 7 days. 21 capsule 0 10/08/2022 10/15/2022 Active Start: 04-05-2022 End: 04-08-2022 take 1 capsule by mouth every six hours Cephalexin 500 MG capsule Discontinued 500 mg PO EVERY 6 HOURS 40 April 05, 2022 12:00am April 08, 2022 12:26pm Start: 04-05-2022 End: 04-08-2022 Start: 01-16-2022 End: 01-30-2022 take 1 capsule by mouth every six hours Cephalexin 500 mg capsule Discontinued 500 mg PO EVERY 6 HOURS 40 January 16, 2022 12:00am January 30, 2022 1:44pm Start: 01-16-2022 End: 01-30-2022 Start: 10-24-2021 End: 11-16-2021 take 1 capsule by mouth every six hours Cephalexin 500 MG capsule Discontinued 500 mg PO EVERY 6 HOURS 40 October 24, 2021 12:00am November 16, 2021 9:58am Start: 10-24-2021 End: 11-16-2021 Comment on above: Take 1 capsule by mo [facility] three times daily for 7 days. ciprofloxacin 500 mg oral tablet (1 source) Quinolone Antimicrobial Start: 2022 take 500 mg by mouth every twelve hours Ciprofloxacin Hcl Active 500 MG PO Q12H 10 5 August 15, 2022 12:00am clindamycin 300 mg oral capsule (1 source) Lincosamide Antibacterial Start: 2022 12 hr dextromethorphan hydrobromide 30 mg / guaiFENesin 600 mg extended release oral tablet (1 source) Uncompetitive B-npgiiv-J-aspartate Receptor Antagonist, Sigma-1 Agonist Start: 2023 End: 2023 take 1 tablet by mouth every twelve hours as needed dextromethorphan-g uaiFENesin (MUCINEX DM) 30-600 mg per tablet Take 1 tablet by mouth two times a day as needed for cough for up to 7 days. 14 tablet 07/03/2024 07/10/2024 Active 2 ml dicyclomine hydrochloride 10 mg/ml injection (20 sources) Anticholinergic Start: 2024 inject 20 mg by intramuscular injection four times daily Dicyclomine 10 mg/mL Solution Active 20 mg IM 4 TIMES DAILY November 28, 2024 12:00am Start: 04-14-2023 End: 06-27-2023 take 1 tablet by mouth three times daily as needed for pain Dicyclomine 20 mg tablet Discontinued 20 mg PO THREE TIMES A DAY as needed for abdominal pain May 09, 2023 1:38pm June 27, 2023 6:52am Start: 02-08-2023 End: 05-04-2023 take 2 capsules by mouth three times daily before mealtime Dicyclomine 10 mg capsule Discontinued 20 mg PO THREE TIMES DAILY BEFORE MEALS February 08, 2023 12:00am May 04, 2023 1:23pm Start: 02-08-2023 End: 05-04-2023 take 20 mg by mouth three times daily before mealtime Dicyclomine Discontinued 20 MG PO THREE TIMES DAILY BEFORE MEALS February 08, 2023 12:00am May 04, 2023 1:23pm Start: 01-24-2023 End: 01-24-2023 dicyclomine (Bentyl) injecti on 20 mg Start: 01-09-2023 End: 01-15-2023 take 1 tablet by mouth three times daily Dicyclomine 20 mg tablet Discontinued 20 mg PO THREE TIMES A DAY January 09, 2023 12:00am January 15, 2023 2:07pm docusate sodium 50 mg / sennosides, [facility] 8.6 mg oral tablet (6 sources) Start: 04-06-2022 take 1 tablet by mouth once daily Sennosides-Docusate Sodium (Stimulant Laxative Plus) 8.6-50 mg tablet Active 1 - 2 TABLET PO DAILY April 06, 2022 12:00am Dulaglutide (12 sources) GLP-1 Receptor Agonist Start: 11-25-2024 Dulaglutide (Trulicity) 4.5 mg/0.5 mL pen injector Active 4.5 mg SC SA November 25, 2024 12:00am Start: 12-20-2023 End: 11-25-2024 Dulaglutide (Trulicity) 1.5 mg/0.5 mL pen injector Discontinued 1.5 mg SC WE December 20, 2023 12:00am November 25, 2024 1:31pm sodium hypochlorite 2.5 mg/ml topical solution (5 sources) Start: 04-09-2022 Sodium Hypochlorite (Hysept) 0.25 % Solution Active 1 APPLIC TOPICAL TWICE A DAY 0 April 09, 2022 12:00am 3 ml insulin glargine 100 unt/ml pen injector (20 sources) Insulin Analog Start: 02-20-2023 inject 10 [IU] by subcutaneous injection twice daily insulin glargine 100 unit/mL (3 mL) Inject 10 Units subcutaneously twice daily. 1 Each 3 02/20/2023 Active Start: 11-15-2022 LANTUS SOLOSTA R U-100 INSULIN 100 unit/mL (3 mL) Start: 08-12-2022 Insulin Glargi ne (Lantus Solostar U-100 Insulin) 100 unit/mL (3 mL) insulin pen Active 20 U SC TWICE A DAY August 12, 2022 1:00am Start: 08-12-2022 inject 10 [IU] by miller bcutaneous injection twice daily insulin glargine 100 unit/mL (3 mL) Inject 10 Units subcutaneously twice daily. 1 Each 3 02/20/2023 Active Start: 08-12-2022 Insulin Glargi ne (Lantus Solostar U-100 Insulin) 100 unit/mL (3 mL) insulin pen Active 15 UNIT SC TWICE A DAY August 12, 2022 1:00am Comment on above: Inject 10 Units subc utaneously twice daily. Insulin Glargine-Yfgn (5 sources) Start: 04-09-20 Insulin Glargine-Yfgn Active 35 UNIT SC AT BEDTIME 0 April 09, 2022 12:00am 3 ml insulin lispro 100 unt/ml pen injector (5 sources) Insulin Analog Start: 04-09-20 Insulin Lispro (Humalog Kwikpen Insulin) 100 unit/mL Insulin Pen Active 0 UNIT SC BEFORE MEALS AND AT BEDTIME April 09, 2022 12:00am lactulose 667 mg/ml oral solution (1 source) Osmotic Laxative Start: 06-30-20 linaclotide 0.145 mg oral capsule (3 sources) Guanylate Cyclase-C Agonist Start: 12-14-19 take 1 capsule by mouth once daily in the morning Linaclotide (Linzess) 145 mcg capsule Active 145 ug PO EVERY MORNING December 13, 2024 12:00am losartan potassium 50 mg oral tablet (10 sources) Angiotensin 2 Receptor Keisha Start: 03-05-20 take 1 tablet by mouth once daily losartan (COZAAR) 50 mg tablet Take 1 tablet by mouth once daily. 30 tablet 03/05/2023 Active Comment on above: Take 1 tablet by balbir th once daily. metoclopramide 10 mg oral tablet (20 sources) Dopamine-2 Receptor Antagonist Start: 06-28-20 Start: 05-09-2023 End: 06-27-2023 take 1 tablet by mouth every six hours as needed for nausea and vomiting Metoclopramide Hcl (Reglan) 5 mg tablet Discontinued 5 mg PO EVERY 6 HOURS as needed for nausea and vomiting 28 09May 09, 2023 1:37pm June 27, 2023 6:52am Start: 01-24-2023 End: 01-31-2023 take 1 tablet by mouth every six hours metoclopramide (Reglan) 10 MG tablet Take 1 tablet (10 mg) by mouth in the morning and 1 tablet (10 mg) at noon and 1 tablet (10 mg) in the evening and 1 tablet (10 mg) before bedtime. Do all this for 7 days. 28 tablet 0 01/24/2023 01/31/2023 Active Start: 01-24-2023 metoclopramide (Reglan) injection 10 mg Start: 02-01-2022 take 1 tablet by balbir th every six hours Metoclopramide Hcl (Reglan) 10 mg tablet Active 10 MG PO EVERY 6 HOURS February 01, 2022 12:00am Start: 01-26-2022 End: 01-30-2022 take 1 tablet by mouth every six hours as needed for nausea and vomiting Metoclopramide Hcl (Reglan) 10 mg tablet Discontinued 10 mg PO EVERY 6 HOURS as needed for nausea and vomiting January 26, 2022 12:00am January 30, 2022 1:45pm mupirocin 0.02 mg/mg topical ointment (1 source) RNA Synthetase Inhibitor Antibacterial Start: 11-17-2022 End: 11-22-2022 mupirocin (BACTROBAN) 2 % ointment Apply to affected area twice daily for 5 days. 30 g 0 11/17/2022 11/22/2022 Active Comment on above: Apply to affected ar ea twice daily for 5 days. pantoprazole 40 mg delayed release oral tablet (18 sources) Proton Pump Inhibitor Start: 02-20-2023 End: 03-22-2023 take 1 tablet by mouth twice daily before mealtime pantoprazole DR (PROTONIX) 40 mg tablet Take 1 tablet by mouth twice daily before meals (0600/1600). 60 tablet 3 02/20/2023 Active Start: 01-30-2022 End: 03-23-2022 take 40 mg by mouth twice daily Pantoprazole Active 40 MG PO TWICE A DAY 60 January 30, 2022 12:00am Comment on above: Take 40 mg by mouth twice daily. Take 1 tablet by balbir th twice daily before meals (0600/1600). pioglitazone 30 mg oral tablet (3 sources) Peroxisome Proliferator Receptor alpha Agonist, Peroxisome Proliferator Receptor gamma Agonist, Thiazolidinedione Start: 01-31-20 take 30 mg by mouth once daily Pioglitazone Active 30 MG PO DAILY January 30, 2022 12:00am polyethylene glycol 3350 04920 mg powder for oral solution (20 sources) Osmotic Laxative Start: 11-29-19 Polyethylene Glycol 3350 (Clearlax) 17 gram/dose powder Active 17 g PO DAILY November 28, 2024 12:00am Start: 04-06-2022 End: 05-04-2023 Polyethylene Glycol 3350 (Mi ralax) 17 gram/dose powder Discontinued 17 g PO DAILY as needed for constipation February 26, 2023 3:22am May 04, 2023 6:58pm Start: 06-06-2021 End: 02-18-2023 polyethylene glycol 3350 (ID RALAX, GLYCOLAX) 17 gram/dose powder Take 17 g by mouth once daily. Dissolve dose in 4 - 8 ounces of liquid and take as directed. 116 g 06/06/2021 02/18/2023 Discontinued Comment on above: Take 17 g by mouth o nce daily. Dissolve dose in 4 - 8 ounces of liquid and take as directed. Take 17 g by mouth o nce daily. Dissolve dose in 4 - 8 ounces of liquid and take as directed. Patient not started yet. polyethylene glycol 3350 769490 mg / potassium chloride 2970 mg / sodium bicarbonate 6740 mg / sodium chloride 5860 mg / sodium sulfate 56227 mg powder for oral solution (20 sources) Osmotic Laxative Start: 02-01-2022 Peg 3350-Electrolytes (Gavilyte-G) 236-22.74-6.74 -5.86 gram recon soln Active ML February 01, 2022 12:00am Start: 01-26-2022 End: 01-30-2022 Peg 3350-Electrolytes (Golyt susan) 236-22.74-6.74 -5.86 gram recon soln Discontinued 240 mL PO EVERY 10 MINUTES NEEDED 3999January 26, 2022 12:00am January 30, 2022 1:45pm until fecal effluent is clear Start: 01-26-2022 End: 01-30-2022 Peg 3350-Electrolytes (Golyt susan) 236-22.74-6.74 -5.86 gram recon soln Discontinued 240 ML PO EVERY 10 MINUTES NEEDED 3999January 26, 2022 12:00am January 30, 2022 1:45pm until fecal effluent is clear Start: 01-26-2022 End: 01-30-2022 prochlorperazine 5 mg oral tablet (20 sources) Phenothiazine Start: 03-04-2023 take 2 tablets by mouth every six hours as needed prochlorperazine (COMPAZINE) 5 mg tablet Take 2 tablets by mouth every 6 hours as needed. 15 tablet 03/04/2023 Active Start: 01-10-2023 End: 01-13-2023 take 1 capsule by mouth three times daily Compazine use prochlorperazine Dose : 10 mg =, Oral, TID, # 12 cap(s), 0 Refill(s), Cannabis hyperemesis syndrome co-occurrent and due to cannabis abuse Start Date: 01/10/23 Stop Date: 01/13/23 Status: Ordered Start: 01-30-2022 End: 03-01-2022 Prochlorperazine 25 mg suppo sitory Discontinued 25 mg RC BEDTIME January 30, 2022 12:00am February 28, 2022 12:00am March 01, 2022 12:03am Start: 01-30-2022 End: 03-01-2022 take 1 tablet by mouth three times daily as needed for nausea and vomiting Prochlorperazine Maleate 10 mg tablet Discontinued 10 mg PO THREE TIMES A DAY as needed for nausea and vomiting January 30, 2022 12:00am February 28, 2022 12:00am March 01, 2022 12:03am Start: 01-30-2022 End: 03-01-2022 Prochlorperazine Discontinue d 25 MG RC BEDTIME January 30, 2022 12:00am March 01, 2022 12:03am Start: 01-30-2022 End: 03-01-2022 Comment on above: Take 2 tablets by mo uth every 6 hours as needed. 72 hr scopolamine 0.0139 mg/hr transdermal system (20 sources) Anticholinergic Start: 11-28-2024 Scopolamine Base 1 mg over 3 days Patch 3 Day Active 1 NMA TD Every 3 Days November 28, 2024 12:00am Start: 01-15-2023 End: 05-04-2023 Scopolamine Base 1 mg over 3 days patch 3 day Discontinued 1 NMA TD Every 3 Days as needed for nausea and vomiting January 15, 2023 12:00am May 04, 2023 6:58pm Start: 01-15-2023 End: 05-04-2023 Scopolamine Base Discontinue d 1 PATCH TD Every 3 Days January 15, 2023 12:00am May 04, 2023 6:58pm Start: 01-15-2023 End: 05-04-2023 Start: 01-30-2022 End: 03-01-2022 Scopolamine Base 1 mg over 3 days patch 3 day Discontinued 1 NMA TD Q72H 10 January 30, 2022 12:00am February 28, 2022 12:00am March 01, 2022 12:03am Start: 01-30-2022 End: 03-01-2022 Scopolamine Base Discontinue d 1 PATCH TD Q72H 10 January 30, 2022 12:00am March 01, 2022 12:03am Start: 01-30-2022 End: 03-01-2022 traMADol hydrochloride 50 mg oral tablet (4 sources) Opioid Agonist Start: 11-28-2024 take 1 tablet by mouth every eight hours as needed for pain Tramadol 50 mg tablet Active 50 mg PO Q8H as needed for pain November 28, 2024 12:00am traZODone hydrochloride 300 mg oral tablet (20 sources) Serotonin Reuptake Inhibitor Start: 07-16-2023 Trazodone 300 mg tablet Active 200 mg PO AT BEDTIME as needed for insomnia July 16, 2023 1:00am Start: 07-16-2023 take 200 mg by mouth at bedtim e Trazodone Active 200 MG PO AT BEDTIME July 16, 2023 1:00am Start: 01-12-2023 End: 05-04-2023 take 1 tablet by mouth at bedtime Trazodone 300 mg tablet Discontinued 300 mg PO AT BEDTIME January 12, 2023 12:00am May 04, 2023 6:58pm Comment on above: Take 300 mg by mouth daily at bedtime. Vancomycin In 0.9 % Sodium Chl (5 sources) Start: 04-08-2022 Vancomycin In 0.9 % Sodium Chl Active 1.75 GM IV Q12H 49424 40 April 08, 2022 12:00am stop date 05/18/22 dx: MRSA osteo weekly bmp, cbc, vanc trough, and esr. Fax to [phone] routine picc care per protocol (2 sources) Start: 07-23-2023 Start: 07-16-2023 Completed/Discontinued Medications Medication Drug Class(es) Dates Sig (Normalized) Sig (Original) acetaminophen 325 mg oral tablet (20 sources) Start: 05-09-2023 End: 06-27-2023 Acetaminophen 325 mg Tablet Discontinued 650 mg PO EVERY 6 HOURS NEEDED as needed for Pain 1-10 Or Fever >100.7 0 May 09, 2023 12:00am June 27, 2023 6:51am Start: 05-09-2023 End: 06-27-2023 take 650 mg by mouth every six hours as needed Acetaminophen Discontinued 650 MG PO EVERY 6 HOURS NEEDED 0 May 09, 2023 12:00am June 27, 2023 6:51am Start: 03-04-2023 take 2 tablets by mo [facility] every six hours as needed acetaminophen (TYLENOL EXTRA STRENGTH) 500 mg tablet Take 2 tablets by mouth every 6 hours as needed for pain. 30 tablet 03/04/2023 Active Comment on above: Take 2 tablets by mo [facility] every 6 hours as needed for pain. acetaminophen 325 mg / HYDROcodone bitartrate 5 mg oral tablet (20 sources) Opioid Agonist Start: 02-26-2023 End: 05-04-2023 Hydrocodone-Acetaminophe n 5-325 mg tablet Discontinued 1 {tbl} PO EVERY 6 HOURS NEEDED as needed for Pain 12 February 26, 2023 May 04, 2023 1:24pm Start: 02-26-2023 End: 05-04-2023 take 1 tablet by mouth every six hours as needed Hydrocodone-Acetaminophen Discontinued 1 TABLET PO EVERY 6 HOURS NEEDED 12 February 26, 2023 May 04, 2023 1:24pm Start: 02-26-2023 End: 05-04-2023 Start: 10-24-2021 take 1 tablet by [facility] every six hours as needed Hydrocodone-Acetaminophen Active 1 TABLE T PO EVERY 6 HOURS NEEDED 04 13October 24, 2021 8:40am acetaminophen 325 mg / oxyCODONE hydrochloride 5 mg oral tablet (20 sources) Opioid Agonist Start: 12-24-2023 End: 11-25-2024 Oxycodone-Acetaminophen (Percocet) 5-325 mg tablet Discontinued 1 {tbl} PO EVERY 6 HOURS as needed for pain 05 02December 24, 2023 November 25, 2024 1:29pm Start: 07-23-2023 End: 12-20-2023 Oxycodone-Acetaminophen (Per cocet) 5-325 mg tablet Discontinued 1 {tbl} PO EVERY 6 HOURS as needed for pain 05 02July 29, 2023 December 20, 2023 2:03pm Start: 07-23-2023 ascorbic acid 1000 mg oral tablet (15 sources) Vitamin C Start: 07-23-2023 End: 11-25-2024 take 1 g by mouth once daily Ascorbic Acid (Vitamin C) (Vitamin C) 1,000 mg tablet Discontinued 1 g PO DAILY 90 90 December 24, 2023 12:00November 25, 2024 1:28pm aspirin 81 mg delayed release oral tablet (20 sources) Platelet Aggregation Inhibitor, Nonsteroidal Anti-inflammatory Drug Start: 12-20-2023 End: 11-25-2024 take 1 tablet by mouth once daily Aspirin 81 mg tablet,delayed release (DR/EC) Discontinued 81 mg PO DAILY 30 December 24, 2023 12:00am November 25, 2024 1:28pm Start: 07-23-2023 End: 12-20-2023 take 1 tablet by mouth twice daily Aspirin 81 mg tablet,delayed release (DR/EC) Discontinued 81 mg PO TWICE A DAY 60 30 July 23, 2023 1:00am December 20, 2023 2:06pm benzonatate 100 mg oral capsule (5 sources) Non-narcotic Antitussive Start: 06-26-2024 End: 07-03-2024 take 1 capsule by mouth three times daily as needed for cough benzonatate (TESSALON PERLE) 100 mg capsule Indications: Bronchopneumonia Take 1 capsule by mouth three times a day as needed for cough for up to 7 days. 21 capsule 06/26/2024 07/03/2024 Start: 05-15-2021 End: 03-23-2022 take 1 capsule by mouth every eight hours as needed benzonatate (TESSALON PERLES) 100 mg capsule Take 1 capsule by mouth three times daily as needed for cough. 12 capsule 0 05/15/2021 03/23/2022 Discontinued Comment on above: Take 1 capsule by [facility] three times daily as needed for cough. betamethasone 0.5 mg/ml / clotrimazole 10 mg/ml topical cream (3 sources) Azole Antifungal, Corticosteroid Start: 03-15-2019 End: 03-23-2022 clotrimazole-betametha sone (LOTRISONE) cream Apply 1 application to affected area twice daily. 15 g 03/15/2019 03/23/2022 Discontinued Comment on above: Apply 1 application to affected area twice daily. bisacodyl 10 mg rectal suppository (20 sources) Stimulant Laxative Start: 01-15-2023 End: 06-27-2023 Bisacodyl (Dulcolax (Bisacodyl)) 10 mg suppository Discontinued 10 mg RC DAILY 12 January 15, 2023 12:00am June 27, 2023 6:51am Hold for diarrhea calcium carbonate 1250 mg / cholecalciferol 600 unt oral tablet (16 sources) Vitamin D Start: 07-23-2023 End: 11-25-2024 Calcium Carbonate-Vitamin D3 (Os-[place] 500 + D3) 500 mg-15 mcg (600 unit) tablet Discontinued 1 {tbl} PO DAILY 90 90 December 24, 2023 12:00am November 25, 2024 1:28pm Start: 07-23-2023 Calcium Carbonate / vitamin D3 (3 sources) End: 03-23-2022 CALCIUM CARBONATE/VITAMIN D3 (CALCIUM + D ORAL) Take by mouth. 03/23/2022 Discontinued End: 03-23-2022 CALCIUM CARBONATE/VITAMIN D3 (CALCIUM + D ORAL) Take by mouth. 0 03/23/2022 Discontinued CALCIUM CARBONAT E/VITAMIN D3 (CALCIUM + D ORAL) Take by mouth. 0 Active Comment on above: Take by mouth. cefTRIAXone (Rocephin) 1,000 mg in sodium chloride 0.9 % 50 mL IVPB Mini-Bag Plus (2 sources) Start: 01-25-20 End: 01-25-20 cefTRIAXone (Rocephin) 1,000 mg in sodium chloride 0.9 % 50 mL IVPB Mini-Bag Plus cyclobenzaprine hydrochloride 10 mg oral tablet (16 sources) Muscle Relaxant Start: 07-23-19 End: 11-26-19 take 1 tablet by mouth three times daily Cyclobenzaprine 10 mg tablet Discontinued 10 mg PO THREE TIMES A DAY 29 01December 24, 2023 12:00am November 25, 2024 1:28pm 1 ml diphenhydrAMINE hydrochloride 50 mg/ml cartridge (2 sources) Histamine-1 Receptor Antagonist Start: 01-25-20 End: 01-25-20 diphenhydrAMINE (BENADryl) injection 25 mg docusate sodium 100 mg oral capsule (20 sources) Start: 07-23-19 End: 11-26-19 take 1 capsule by mouth once daily Docusate Sodium (Colace) 100 mg capsule Discontinued 100 mg PO DAILY 04 20December 24, 2023 12:00am November 25, 2024 1:28pm Start: 01-30-2022 End: 04-06-2022 take 1 capsule by mouth twice daily Docusate Sodium (Dulcolax Stool Softener (Dss)) 100 mg capsule Discontinued 100 mg PO TWICE A DAY January 30, 2022 12:00am April 06, 2022 3:13pm Start: 10-29-2021 take 1 capsule by mo [facility] once daily Docusate Sodium (Colace) 100 mg capsule Active 100 MG PO DAILY October 29, 2021 12:01pm doxycycline hyclate 100 mg oral capsule (11 sources) Tetracycline-class Drug Start: 07-29-2023 End: 12-20-2023 take 1 capsule by mouth twice daily Doxycycline Hyclate 100 mg capsule Discontinued 100 mg PO TWICE A DAY July 29, 2023 1:00am December 20, 2023 2:02pm Start: 10-08-2022 End: 10-15-2022 take 1 tablet by mouth twice daily doxycycline (VIBRA-TABS) 100 mg tablet Take 1 tablet by mouth twice daily for 7 days. 14 tablet 0 10/08/2022 10/15/2022 Active Start: 06-29-2022 take 100 mg by mouth twice daily Doxycycline Hyclate Active 100 MG PO TWICE A DAY 30 04June 29, 2022 12:00am Comment on above: Take 1 tablet [facility] twice daily for 7 days. Fiber (8 sources) Start: 07-16-2023 End: 11-25-2024 take 1 tablet by mouth once daily Fiber tablet,chewable Discontinued 1 {tbl} PO DAILY July 16, 2023 1:00am November 25, 2024 1:29pm Start: 07-16-2023 take 1 tablet by bal[facility] once daily Fiber tablet,chewable Active 1 {tbl} PO DAILY July 16, 2023 1:00am Start: 07-16-2023 take 1 tablet by [facility] once daily Fiber Active 1 TABLET PO DAILY July 16, 2023 1:00am glimepiride 2 mg oral tablet (3 sources) Sulfonylurea Start: 03-10-2019 End: 03-23-2022 take 1 tablet by mouth once daily at breakfast glimepiride (AMARYL) 2 mg tablet Indications: Type II or unspecified type diabetes mellitus without mention of complication, uncontrolled Take 1 tablet by mouth daily with breakfast. 30 tablet 3 03/10/2019 03/23/2022 Discontinued Comment on above: Take 1 tablet by balbir th daily with breakfast. hyoscyamine sulfate 0.125 mg sublingual tablet (20 sources) Start: 01-07-2023 End: 06-27-2023 take 1 tablet by mouth three times daily as needed for pain Hyoscyamine Sulfate (Levsin/Sl) 0.125 mg tablet, sublingual Discontinued 0.125 mg PO THREE TIMES A DAY as needed for abdominal pain January 07, 2023 12:00am June 27, 2023 6:52am Start: 01-30-2022 take 0.125 mg by balbir th three times daily Hyoscyamine Sulfate Active 0.125 MG PO THREE TIMES A DAY 90 January 30, 2022 12:00am lansoprazole 30 mg delayed release oral capsule (20 sources) Proton Pump Inhibitor Start: 02-08-2023 End: 05-04-2023 take 1 capsule by mouth once daily Lansoprazole (Prevacid) 30 mg capsule,delayed release(DR/EC) Discontinued 30 mg PO DAILY February 08, 2023 12:00am May 04, 2023 6:57pm levoFLOXacin 750 mg oral tablet (16 sources) Quinolone Antimicrobial Start: 05-09-2023 End: 06-27-2023 take 1 tablet by mouth once daily Levofloxacin 750 mg tablet Discontinued 750 mg PO DAILY May 09, 2023 12:00am June 27, 2023 6:52am metFORMIN hydrochloride 500 mg oral tablet (20 sources) Biguanide Start: 06-24-2022 End: 05-04-2023 take 2 tablets by mouth twice daily Metformin 500 mg tablet Discontinued 1000 mg PO TWICE A DAY June 24, 2022 12:45pm May 04, 2023 6:57pm On Hold: Resume on 01/20/23. Hold until nausea, vomiting, oral intake improve Start: 01-16-2022 End: 10-24-2023 take 1 tablet by mouth twice daily Metformin 500 mg tablet Discontinued 500 mg PO TWICE A DAY 60 January 16, 2022 12:00am June 24, 2022 12:45pm Start: 01-16-2022 End: 05-04-2023 take 1000 mg by mouth twice daily Metformin Discontinued 1000 MG PO TWICE A DAY June 24, 2022 11:45am May 04, 2023 5:57pm Start: 03-10-2019 End: 02-20-2023 metFORMIN (GLUCOPHAGE) 500 m g tablet Indications: Type II or unspecified type diabetes mellitus without mention of complication, uncontrolled One pill by mouth daily w/ breakfast X 1 week; then increase to twice daily w/ meals. 60 tablet 3 03/10/2019 02/20/2023 Discontinued Comment on above: One pill by mouth da heather w/ breakfast X 1 week; then increase to twice daily w/ meals. Take 1 tablet by bal[facility] twice daily with meals. MULTIVITAMIN ORAL (3 sources) End: 03-23-2022 MULTIVITAMIN ORAL Take by mouth. 03/23/2022 Discontinued End: 03-23-2022 MULTIVITAMIN ORAL Take by mo [facility]. 0 03/23/2022 Discontinued MULTIVITAMIN ORA L Take by mouth. 0 Active Comment on above: Take by mouth. omeprazole 40 mg delayed release oral capsule (20 sources) Proton Pump Inhibitor Start: 3 End: 3 Omeprazole 40 mg capsule,delayed release(DR/EC) Discontinued 40 mg PO TWICE A DAY 60 January 19, 2023 12:00am May 09, 2023 1:35pm take two times a day for 8 weeks then once a day ondansetron 8 mg oral tablet (20 sources) Serotonin-3 Receptor Antagonist Start: 3 End: 3 take 1 tablet by mouth every eight hours Ondansetron Hcl 8 mg tablet Discontinued 8 mg PO Q8H 15 5 May 09, 2023 12:00am June 27, 2023 6:52am 1st dose 1-2 hr before radiation Start: 01-24-2023 End: 01-24-2023 ondansetron (Zofran) injecti on 4 mg Start: 01-07-2023 End: 05-04-2023 take 1 tablet by mouth every eight hours as needed for nausea Ondansetron 4 mg tablet,disintegrating Discontinued 4 mg PO EVERY 8 HOURS NEEDED as needed for Nausea March 06, 2023 1:17pm May 04, 2023 6:58pm Start: 01-07-2023 End: 05-04-2023 take 1 tablet by mouth three times daily as needed for nausea and vomiting Ondansetron 4 mg tablet,disintegrating Discontinued 4 mg PO THREE TIMES A DAY as needed for nausea and vomiting February 26, 2023 3:21am May 04, 2023 6:58pm Start: 02-01-2022 take 4 mg by mouth e very eight hours as needed Ondansetron Hcl Active 4 MG PO EVERY 8 HOURS NEEDED February 01, 2022 12:00am Start: 01-23-2022 End: 02-18-2023 take 1 tablet by mouth every six hours as needed for nausea and vomiting Ondansetron 4 mg tablet,disintegrating Discontinued 4 mg PO EVERY 6 HOURS as needed for nausea and vomiting January 12, 2023 12:00am January 15, 2023 2:08pm Start: 01-23-2022 End: 01-30-2022 Comment on above: Take 4 mg by mouth e very 6 hours as needed. promethazine hydrochloride 25 mg oral tablet (20 sources) Phenothiazine Start: 07-12-19 End: 12-20-19 take 1 tablet by mouth every six hours as needed for nausea Promethazine 25 mg tablet Discontinued 25 mg PO EVERY 6 HOURS NEEDED as needed for Nausea July 12, 2023 1:00am December 20, 2023 2:03pm Start: 06-25-2023 Start: 04-13-2023 End: 05-04-2023 take 1 tablet by mouth every six hours as needed for nausea Promethazine 25 mg tablet Discontinued 25 mg PO EVERY 6 HOURS NEEDED as needed for Nausea April 13, 2023 12:00am May 04, 2023 6:58pm Start: 04-13-2023 End: 05-04-2023 Promethazine (Promethegan) 2 5 mg suppository Discontinued 25 mg RC EVERY 6 HOURS NEEDED as needed for Nausea April 13, 2023 12:00am May 04, 2023 6:58pm Start: 01-10-2023 promethazine 2 5 mg rectal suppository Dose : 25 mg = 1 supp, Rectal, q6h, PRN for nausea/vomiting, # 10 supp, 0 Refill(s), Cannabis hyperemesis syndrome co-occurrent and due to cannabis abuse Start Date: 01/10/23 Status: Ordered Start: 01-09-2023 End: 05-04-2023 take 1 tablet by mouth three times daily as needed for nausea and vomiting Promethazine 25 mg tablet Discontinued 25 mg PO THREE TIMES A DAY as needed for nausea and vomiting January 09, 2023 12:00am May 04, 2023 6:58pm psyllium husk (METAMUCIL ORA L) (2 sources) End: 03-23-2022 psyllium husk (METAMUCIL ORA L) Take by mouth. 0 03/23/2022 Discontinued psyllium husk (M ETAMUCIL ORAL) Take by mouth. 0 Active Comment on above: Take by mouth. 50 ml sodium chloride 9 mg/ml injection (2 sources) Start: 01-24-2023 End: 01-24-2023 sodium chloride 0.9 % bolus 1,000 mL sulfamethoxazole 800 mg / trimethoprim 160 mg oral tablet (20 sources) Dihydrofolate Reductase Inhibitor Antibacterial, Sulfonamide Antimicrobial Start: 02-24-2023 End: 05-04-2023 Sulfamethoxazole-Trime thoprim (Bactrim Ds) 800-160 mg tablet Discontinued 1 {tbl} PO TWICE A DAY 14 February 24, 2023 12:00am May 04, 2023 6:58pm Start: 02-24-2023 End: 05-04-2023 Start: 11-19-2022 End: 01-15-2023 take 1 tablet by mouth twice daily Sulfamethoxazole-Trimethoprim Discontinued 1 TABLET PO TWICE A DAY November 19, 2022 12:00am January 15, 2023 2:08pm Start: 11-19-2022 End: 01-15-2023 Start: 11-17-2022 End: 01-15-2023 Sulfamethoxazole-Trimethopri m (Bactrim Ds) 800-160 mg tablet Discontinued 1 {tbl} PO TWICE A DAY 4 November 19, 2022 12:00am January 15, 2023 2:08pm Start: 04-05-2022 End: 04-08-2022 Sulfamethoxazole-Trimethopri m 1 TABLET tablet Discontinued 1 {tbl} PO TWICE A DAY April 05, 2022 12:00am April 08, 2022 12:26pm Start: 04-05-2022 End: 04-08-2022 take 1 tablet by mouth twice daily Sulfamethoxazole-Trimethoprim Discontinued 1 TABLET PO TWICE A DAY April 05, 2022 12:00am April 08, 2022 12:26pm Start: 04-05-2022 End: 04-08-2022 Start: 01-16-2022 End: 01-30-2022 Sulfamethoxazole-Trimethopri m (Bactrim Ds) 800-160 mg tablet Discontinued 1 {tbl} PO TWICE A DAY January 16, 2022 12:00am January 30, 2022 1:45pm Start: 01-16-2022 End: 01-30-2022 Start: 10-24-2021 take 1 tablet by bal[facility] th twice daily Sulfamethoxazole-Trimethoprim Active 1 TABLET PO TWICE A DAY October 24, 2021 8:40am Comment on above: Take 1 tablet by bal[facility] th twice daily for 5 days. Problems Active Problems Problem Classification Problem Date Documented Da te Episodic/Chronic Abdominal pain (20 sources) Abdominal pain; Translations: [Unspecified abdominal pain] Onset: 02-11-2023 Episodic Administrative/social admission (20 sources) Patient encounter status; Translations: [Encounter for pre-employment examination] Episodic Anal and rectal conditions (20 sources) Acute proctitis; Translations: [Other specified diseases of anus and rectum] Onset: 12-14-2024 02-26-2023 Episodic Anxiety disorders (20 sources) Mixed anxiety and depressive disorder; Translations: [Anxiety disorder, unspecified] Onset: 03-02-2023 03-02-2023 Chronic Asthma (20 sources) Asthma; Translations: [Unspecified asthma, uncomplicated] Chronic Bacterial infection; unspecified site (20 sources) History of methicillin resistant Staphylococcus aureus infection; Translations: [Personal history of Methicillin resistant Staphylococcus aureus infection] Episodic Chronic ulcer of skin (20 sources) Chronic ulcer of foot; Translations: [Non-pressure chronic ulcer of other part of right foot with necrosis of muscle] Chronic Diabetes mellitus with complications (20 sources) Diabetes mellitus; Translations: [Type 2 diabetes mellitus with hyperglycemia] Onset: 03-16-2013 06-13-2013 Chronic Diabetes mellitus without complication (20 sources) Type 2 diabetes mellitus without complications; Translations: [Diabetes mellitus without mention of complication, type II or unspecified type, not stated as uncontrolled] Onset: 03-16-2013 Chronic Diabetes mellitus without complication (20 sources) Hyperglycemia; Translations: [Hyperglycemia, unspecified] 01-24-2022 Episodic Diseases of white blood cells (20 sources) Leukocytosis; Translations: [Elevated white blood cell count, unspecified] Chronic Disorders of lipid metabolism (20 sources) Hyperlipidemia; Translations: [Hyperlipidemia, unspecified] Onset: 11-27-2013 11-27-2013 Chronic Fluid and electrolyte disorders (20 sources) Lactic acidosis; Translations: [Lactic acidosis] Onset: 02-11-2023 Episodic Infective arthritis and osteomyelitis (except that caused by tuberculosis or sexually transmitted disease) (20 sources) Osteomyelitis; Translations: [Osteomyelitis, unspecified] Chronic Intestinal infection (20 sources) Viral gastroenteritis; Translations: [Viral intestinal infection, unspecified] 08-19-2021 Episodic Intestinal obstruction without hernia (11 sources) Fecal impaction; Translations: [Fecal impaction] Onset: 12-14-2024 11-25-2024 Episodic Malaise and fatigue (1 source) Asthenia; Translations: [Weakness] Onset: 02-11-2023 Episodic Nausea and vomiting (20 sources) Nausea and vomiting; Translations: [Nausea with vomiting, unspecified] Onset: 01-24-2023 Episodic Noninfectious gastroenteritis (15 sources) Colitis; Translations: [Noninfective gastroenteritis and colitis, unspecified] Onset: 12-14-2024 11-25-2024 Episodic Nutritional deficiencies (13 sources) Deficiency of macronutrients; Translations: [Unspecified severe protein-calorie malnutrition] Onset: 02-19-2023 02-20-2023 Chronic Open wounds of extremities (20 sources) Open wound of right foot; Translations: [Unspecified open wound, right foot, initial encounter] 11-24-2021 Episodic Other circulatory disease (2 sources) Other specified peripheral vascular diseases; Translations: [Other specified peripheral vascular diseases] Onset: 10-25-2024 Chronic Other connective tissue disease (16 sources) Contracture of Achilles tendon; Translations: [Short Achilles tendon (acquired), right ankle] 05-08-2023 Episodic Other connective tissue disease (8 sources) Short Achilles tendon (acquired), right ankle; Translations: [Contracture of tendon (sheath)] 05-09-2023 Episodic Other eye disorders (1 source) Pain of right eye; Translations: [Ocular pain, right eye] 07-01-2023 Episodic Other eye disorders (10 sources) Complete obstruction of lacrimal canaliculus ; Translations: [Blocked tear duct] 07-02-2023 Episodic Other gastrointestinal disorders (20 sources) Constipation; Translations: [Constipation, unspecified] Onset: 03-02-2023 11-06-2021 Episodic Other gastrointestinal disorders (2 sources) Constipation, unspecified; Translations: [Constipation, unspecified] Onset: 02-11-2023 Episodic Other injuries and conditions due to external causes (7 sources) Unspecified injury of right Achilles tendon, initial encounter; Translations: [Injury of right Achilles tendon] 12-24-2023 Episodic Other liver diseases (2 sources) Elevated liver enzymes level; Translations: [Abnormal levels of other serum enzymes] 12-13-2024 Episodic Other lower respiratory disease (2 sources) Cough; Translations: [Acute cough] Episodic Other lower respiratory disease (1 source) Dyspnea; Translations: [Shortness of breath] 04-15-2023 Episodic Other lower respiratory disease (17 sources) H/O: asthma; Translations: [Personal history of other diseases of the respiratory system] 04-23-2023 Episodic Other lower respiratory disease (3 sources) Cough; Translations: [Acute cough] 03-23-2022 Episodic Other nervous system disorders (1 source) Other chronic pain; Translations: [Chronic abdominal pain] Onset: 03-01-2023 Chronic Other nervous system disorders (9 sources) Acute postoperative pain; Translations: [Other acute postprocedural pain] 07-23-2023 Episodic Other nutritional; endocrine; and metabolic disorders (8 sources) Body mass index 40+ - severely obese; Translations: [Morbid (severe) obesity due to excess calories] Onset: 06-13-2013 06-13-2013 Chronic Other nutritional; endocrine; and metabolic disorders (13 sources) Obese class I; Translations: [Obesity, unspecified] Onset: 02-18-2023 02-20-2023 Chronic Other nutritional; endocrine; and metabolic disorders (20 sources) History of diabetes mellitus type 2; Translations: [Personal history of other endocrine, nutritional and metabolic disease] 11-27-2022 Episodic Other nutritional; endocrine; and metabolic disorders (17 sources) H/O: diabetes mellitus; Translations: [Personal history of other endocrine, nutritional and metabolic disease] 04-23-2023 Episodic Other screening for suspected conditions (not mental disorders or infectious disease) (20 sources) Imaging of lung abnormal ; Translations: [Abnormal results of pulmonary function studies] Onset: 12-28-2024 Episodic Personality disorders (11 sources) Borderline personality disorder; Translations: [Borderline personality disorder] Onset: 03-02-2023 03-02-2023 Chronic Pneumonia (except that caused by tuberculosis or sexually transmitted disease) (1 source) Bronchopneumonia; Translations: [Bronchopneumonia, unspecified organism] 06-26-2024 Episodic Residual codes; unclassified (20 sources) Other specified health status; Translations: [Failure of outpatient treatment] 01-14-2023 Episodic Skin and subcutaneous tissue infections (20 sources) Abscess of abdominal wall; Translations: [Cutaneous abscess of abdominal wall] Onset: 02-11-2023 Episodic Substance-related disorders (20 sources) Tobacco user; Translations: [Nicotine dependence, unspecified, uncomplicated] Onset: 11-27-2013 11-27-2013 Chronic Syncope (4 sources) Syncope and collapse; Translations: [Syncope and collapse] Onset: 01-24-2023 Episodic Unclassified (1 source) Acute cough; Translations: [Acute cough] Onset: 07-03-2024 Unclassified (4 sources) Please call today or tomorrow to set up appointment. physician office secretary called to schedule appointment. I had to leave a message so Dr. Martinez office should be calling the patient within 48 hours. Urinary tract infections (20 sources) Acute pyelonephritis; Translations: [Acute pyelonephritis] 08-12-2022 Episodic Past or Other Problems Problem Classification Problem Date Documented Da te Episodic/Chronic Other disorders of stomach and duodenum (1 source) Gastroparesis; Translations: [Gastroparesis] Onset: 03-01-2023 Episodic Unclassified (6 sources) Elevated blood pressure; Translations: [Elevated BP] Onset: 04-28-2013 Resolved: 11-27-2013 11-27-2013 Results Test Name Value Interpretation Reference Range Facility Abdomen Limitedon 12-25-2024 Abdomen Limited [facility] [address] [place], [place] [address] Abdomen Limited MR#: [id number] Acct: [id number] Name: GHISLAINE GIVENS Rep #: [id number] : 1990 F 34 From: Amy merrill MD PCP: Amy Solorzano 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 PATIENT PREPARATION: Per protocol COMPARISON: CT scan on 11/27/2024. FINDINGS: The liver measures 16.1 cm. Increased hepatic echogenicity suggestive of hepatic steatosis. Mildly heterogeneous hepatic echotexture. Unremarkable flow in the main portal vein. Mildly distended gallbladder measuring 10.3 cm. No evidence of pericholecystic free fluid. Negative sonographic Morris. No evidence of cholelithiasis. Normal gallbladder wall thickness measuring 3 mm. Nondilated common bile duct measuring 6 mm. Unremarkable visualized pancreas. Unremarkable right kidney measuring 12.5 x 6.5 x 5 cm. Normal right renal cortical thickness measuring 1.5 cm. No evidence of hydronephrosis or calculi. US/Abdomen Limited IMPRESSION: Hepatic steatosis. Mildly heterogeneous hepatic echotexture. No evidence of cholelithiasis or acute cholecystitis. [facility] CC: [facility] [employer] SUPERVISOR-C Amy Solorzano; MIGUEL A [place] [facility] Assistant: Signed Normal [facility] Absolute lymphocyte countOrd ered By: Nayana Peter on 12-13-2024 Lymphocytes Auto (Unsp spec) [#/Vol] 3.52 10*3/uL 0.83-4.51 [facility] Absolute neutrophil countOrd ered By: Nayana Peter on 12-13-2024 Neutrophils (Bld) [#/Vol] 5.0 10*3/uL 2.0-7.7 [facility] Anion gap in Serum or Plasma Ordered By: Nayana Peter on 12-13-2024 Anion gap [Moles/Vol] 13 mmol/L 5-15 [facility] Automated lymphocyte count a s percentage of total leukocytesOrdered By: Nayana Peter on 12-13-2024 Lymphocytes/100 WBC Auto (Unsp spec) 36.7 % 19-41 [facility] BUN/creatinine ratioOrdered By: Nayana Peter on 12-13-2024 Urea nitrogen/Creatinine [Mass ratio] 6.2 mg/mg Low 10-20 [facility] Basophil percentageOrdered B y: Nayana Peter on 12-13-2024 Basophils/100 WBC (Bld) 0.8 % 0-1 [facility] Bilirubin, totalOrdered By: Nayana Peter on 12-13-2024 Bilirubin [Mass/Vol] 0.30 mg/dL 0.00-1.30 [facility] CBC W/Diff, Automatedon Absolute Lymph 3.52 X10 3/uL Normal 0.83-4.51 [facility] Comment on above: Performed By: #### L 700.6800, L100.0100, L500.2500 #### [facility] [address] [place], [address] Absolute Neut 5.0 X10 3/uL Normal 2.0-7.7 [facility] Comment on above: Performed By: #### L 700.6800, L100.0100, L500.2500 #### [facility] [address] [place], [address] Basophils/100 WBC (Bld) 0.8 % Normal 0-1 [facility] Comment on above: Performed By: #### L 700.6800, L100.0100, L500.2500 #### [facility] [address] [place], [address] Eosinophils/100 WBC (Bld) 2.0 % Normal 0-5 [facility] Comment on above: Performed By: #### L 700.6800, L100.0100, L500.2500 #### [facility] [address] [place], [address] Erythrocyte distribution width (RBC) [Ratio] 14.0 % Normal 11.6-14.6 [facility] Comment on above: Performed By: #### L 700.6800, L100.0100, L500.2500 #### [facility] [address] [place], [address] Hematocrit (Bld) [Volume fraction] 40.5 % Normal 37-47 [facility] Comment on above: Performed By: #### L 700.6800, L100.0100, L500.2500 #### [facility] [address] [place], [address] Hemoglobin (Bld) [Mass/Vol] 13.2 g/dL Normal 12.0-15.0 [facility] Comment on above: Performed By: #### L 700.6800, L100.0100, L500.2500 #### [facility] [address] [place], [address] IG% 0.800 Normal 0.0-0.9 [facility] Comment on above: Result Comment: IG% - Immature Granulocytes (promyelocytes, myelocytes and metamyelocytes) > 1% indicates that a LEFT SHIFT is Present. Performed By: #### L 700.6800, L100.0100, L500.2500 #### [facility] [address] [place], [address] Lymphocytes/100 WBC (Bld) 36.7 % Normal 19-41 [facility] Comment on above: Performed By: #### L 700.6800, L100.0100, L500.2500 #### [facility] [address] [place], [address] MCH (RBC) [Entitic mass] 27.1 pg Normal 27.0-32.0 [facility] Comment on above: Performed By: #### L 700.6800, L100.0100, L500.2500 #### [facility] [address] [place], [address] MCHC (RBC) [Mass/Vol] 32.6 g/dL Normal 32-36 [facility] Comment on above: Performed By: #### L 700.6800, L100.0100, L500.2500 #### [facility] [address] [place], [address] MCV (RBC) [Entitic vol] 83.2 fL Normal 81-99 [facility] Comment on above: Performed By: #### L 700.6800, L100.0100, L500.2500 #### [facility] [address] [place], [address] Monocytes/100 WBC (Bld) 7.5 % Normal 0-10 [facility] Comment on above: Performed By: #### L 700.6800, L100.0100, L500.2500 #### [facility] [address] [place], [address] Neutrophils/100 WBC (Bld) 52.2 % Normal 47-70 [facility] Comment on above: Performed By: #### L 700.6800, L100.0100, L500.2500 #### [facility] [address] [place], [address] Nucleated RBC (Bld) [#/Vol] 0 10*3/uL Normal 0-5 [facility] Comment on above: Performed By: #### L 700.6800, L100.0100, L500.2500 #### [facility] [address] [place], [address] Platelet mean volume (Bld) [Entitic vol] 10.1 fL Normal 6.2-12.0 [facility] Comment on above: Performed By: #### L 700.6800, L100.0100, L500.2500 #### [facility] [address] [place], [address] Platelets (Bld) [#/Vol] 367 10*3/uL Normal 150-450 [facility] Comment on above: Performed By: #### L 700.6800, L100.0100, L500.2500 #### [facility] [address] [place], [address] RBC (Bld) [#/Vol] 4.87 10*6/uL Normal 4.2-5.4 [facility] Comment on above: Performed By: #### L 700.6800, L100.0100, L500.2500 #### [facility] [address] [place], [address] RDW SD 42.3 fl Normal 35.1-43.9 [facility] Comment on above: Performed By: #### L 700.6800, L100.0100, L500.2500 #### [facility] [address] [place], [address] WBC (Bld) [#/Vol] 9.6 10*3/uL Normal 4.4-11.0 [facility] Comment on above: Performed By: #### L 700.6800, L100.0100, L500.2500 #### [facility] [address] [place], [address] Carbon dioxide, total [Moles /volume] in Central venous bloodOrdered By: Nayana Peter on 12-13-2024 CO2 [Moles/Vol] 26.2 mmol/L 21.0-32.0 [facility] Chloride assayOrdered By: Tiffanie Peter on 12-13-2024 Chloride [Moles/Vol] 99 mmol/L 98-108 [facility] Comprehensive Metabolic Prof ilon 12-13-2024 Albumin [Mass/Vol] 3.8 g/dL Normal 3.5-5.0 [facility] Comment on above: Performed By: #### L 700.6800, L100.0100, L500.2500 #### [facility] [address] [place], [address] Albumin/Globulin [Mass ratio] 1.2 {ratio} Normal 0.9-2.4 [facility] Comment on above: Performed By: #### L 700.6800, L100.0100, L500.2500 #### [facility] [address] [place], [address] ALK PHOS 100 U/L Normal 35-104 [facility] Comment on above: Performed By: #### L 700.6800, L100.0100, L500.2500 #### [facility] [address] [place], [address] ALT [Catalytic activity/Vol] 36 U/L High <=34 [facility] Comment on above: Performed By: #### L 700.6800, L100.0100, L500.2500 #### [facility] [address] [place], [address] AST [Catalytic activity/Vol] 37 U/L High <=31 [facility] Comment on above: Performed By: #### L 700.6800, L100.0100, L500.2500 #### [facility] [address] [place], [address] Bilirubin [Mass/Vol] 0.30 mg/dL Normal 0.00-1.30 [facility] Comment on above: Performed By: #### L 700.6800, L100.0100, L500.2500 #### [facility] [address] [place], [address] BUN/CRE 6.2 RATIO Low 10-20 [facility] Comment on above: Performed By: #### L 700.6800, L100.0100, L500.2500 #### [facility] [address] [place], [address] Calcium [Mass/Vol] 8.8 mg/dL Normal 7.6-11.0 [facility] Comment on above: Performed By: #### L 700.6800, L100.0100, L500.2500 #### [facility] [address] [place], [address] Chloride [Moles/Vol] 99 mmol/L Normal 98-108 [facility] Comment on above: Performed By: #### L 700.6800, L100.0100, L500.2500 #### [facility] [address] [place], [address] CO2 [Moles/Vol] 26.2 mmol/L Normal 21.0-32.0 [facility] Comment on above: Performed By: #### L 700.6800, L100.0100, L500.2500 #### [facility] [address] [place], [address] Creatinine [Mass/Vol] 0.86 mg/dL Normal 0.70-1.20 [facility] Comment on above: Performed By: #### L 700.6800, L100.0100, L500.2500 #### [facility] [address] [place], [address] GAP 13 Normal 5-15 [facility] Comment on above: Performed By: #### L 700.6800, L100.0100, L500.2500 #### [facility] [address] [place], [address] GFR/1.73 sq M.predicted among non-blacks MDRD (S/P/Bld) [Vol rate/Area] 92 mL/min/{1.73_m2} Normal >60 [facility] Comment on above: Result Comment: mL/m in/1.73m2 CKD-EPI Creatinine Equation (2020) Performed By: #### L 700.6800, L100.0100, L500.2500 #### [facility] [address] [place], [address] Globulin (S) [Mass/Vol] 3.3 g/dL Normal 2.2-4.2 [facility] Comment on above: Performed By: #### L 700.6800, L100.0100, L500.2500 #### [facility] [address] [place], [address] Glucose [Mass/Vol] 251 mg/dL High 70-99 [facility] Comment on above: Performed By: #### L 700.6800, L100.0100, L500.2500 #### [facility] [address] [place], [address] Potassium [Moles/Vol] 4.0 mmol/L Normal 3.3-5.1 [facility] Comment on above: Performed By: #### L 700.6800, L100.0100, L500.2500 #### [facility] [address] [place], [address] Sodium [Moles/Vol] 139 mmol/L Normal 133-145 [facility] Comment on above: Performed By: #### L 700.6800, L100.0100, L500.2500 #### [facility] [address] [place], [address] T PROT 7.2 g/dL Normal 5.9-8.4 [facility] Comment on above: Performed By: #### L 700.6800, L100.0100, L500.2500 #### [facility] [address] [place], [address] Urea nitrogen [Mass/Vol] 5 mg/dL Normal 4-19 [facility] Comment on above: Performed By: #### L 700.6800, L100.0100, L500.2500 #### [facility] [address] [place], [address] Eosinophil percentageOrdered By: Nayana Peter on 12-13-2024 Eosinophils/100 WBC (Bld) 2.0 % 0-5 [facility] Erythrocyte distribution wid th ratioOrdered By: Nayana Peter on 12-13-2024 Erythrocyte distribution width (RBC) [Ratio] 14.0 % 11.6-14.6 [facility] Erythrocyte distribution wid th standard deviationOrdered By: Nayanamarco Peter on 12-13-2024 Erythrocyte distribution width (RBC) [Ratio] 42.3 fl 35.1-43.9 [facility] Gastroenterology Visit Repor ton 12-13-2024 Gastroenterology Visit Report [facility] Gastroenterology [address] [place] [address] OFFICE VISIT Date of Service: 12/13/24 MR#: [id number] Acct: [id number] Name: GHISLAINE GIVENS Rep #: [id number] : 1990 Provider: MIGUEL A South Age/Sex: 34/F Location: [facility] [place].[facility] Status: Signed Intake Vital Signs 11/27/24 13:47 12/13/24 08:30 Height 5 ft 6 in 5 ft 6 in Weight: 243 lb BMI 39.2 BP 138/97 H Blood Pressure Location Lt brachial Position Sitting Respiration 19 H Pulse 93 Pulse Source Monitor Pulse Oximetry (%) 97 Oxygen Delivery Method room air Intake Visit Reasons: Constipation Chief Complaint: n/v Accompanied by: Significant Other Is patient in pain?: Yes Allergies No Known Allergies Allergy (Verified 11/25/24 08:58) Patient : No Nurse's Note: OV 12/13/24 Pt here for hospital f/u and reports n/v/c/d, abdominal pain, gas and bloating. Pt states she has been experiencing constipation and loose stools. Pt reports prior hx of EGD in 2022 and no prior hx of colonoscopy. [facility] Medical History (Updated 12/06/24 @ 00:00 by Background Daemon) Diabetes GERD (gastroesophageal reflux disease) Wears glasses History of MRSA infection Borderline personality disorder Alcohol use Insulin dependent diabetes mellitus Dietary restriction Heartburn Smoker Shortness of breath on exertion Leg cramps Type 2 diabetes mellitus with peripheral neuropathy Neuropathy, diabetic Elevated serum creatinine Failure of outpatient treatment Nausea and vomiting Diabetes mellitus with diabetic polyneuropathy Type 2 diabetes mellitus with foot ulcer Anxiety Depression Constipation Asthma Diabetes Surgical History Hx of foot surgery Hx of foot surgery Family History Other Bleeding disorder Cancer Diabetes Hypertension Social History Smoking Status: Current every day smoker tobacco type: cigarettes alcohol intake: never substance use type: does not use what type of physical activity do you participate in: none HPI HPI Chief Complaint: n/v Details: GHISLAINE GIVENS, is a 34 F who presents to the office today for establishment with [facility] with constipation and abd pain for a few days. Pt took laxative and has watery loose stool but felt she still had stool stuck. Biochemical work up significant for leukocytosis 27, hgb 14.1, lactic acid 1.5. X ray showing large fecal burden with air dilation. CT showing fecal impaction with inflammation and thickening of the colon wall consistent with proctitis and colitis. Started on IV atb and admitted. Pt had enemas and laxatives which produced BM. She endorses marijuana use and n/v. She was caught in her room inducing vomiting. Pt here today for continued issues with n/v and constipation. She does feel the nausea has improved since the hospital. She is able to eat foods but cannot keep water down. She was unable to finish course of antibiotics due to vomiting them up. Sopalamine patch does not help much. She endorses having nausea for some time. She has been on Trulicity for about a month for her diabetes. She has not smoked marijuana in 2-3 weeks. Prior to starting marijuana use a few years ago she endorses having GI issues. She has never had a colonoscopy but did have an EGD in 2022. She also notes having a GES at another facility a few years back. ROS Const Constitutional: Positive for fatigue and fever(s); No weight change ENT ENT: No difficulty swallowing Gastro GI: Positive for abdominal pain, bloating, change in bowel habits, constipation, diarrhea, heartburn, excessive flatus, loose stools, nausea/dyspepsia and vomiting; No belching, change in stool character, coffee ground emesis, cramping, difficulty swallowing, feeling full early, incontinent of stools, Vomiting blood/hematemesis, Blood in stool, Black,tarry stools, pain with swallowing or other Musc Musculoskeletal: No joint pain Skin Skin: No yellowing of the eye or itchy eyes Psych Psychiatric: Positive for anxiety and Positive for depression Endo Endocrine: Positive for fatigue; No weight change Aller/Imm Allergy/Immunologic: No itchy eyes Rodrick/Lymp Hematologic/Lymphatic: No easy bleeding or easy bruising Exam Const General: cooperative and anxious Resp Effort Inspection: normal respiratory effort Cardio Rate: regular rate Rhythm: regular rhythm GI Inspection: normal to inspection Auscultation: normal bowel sounds Palpation: soft and nontender Assessment and Plan Assessment and Plan (1) Constipation: Plan: Ghislaine is a 34 yo female pt here today for f/u after [facility] admission. Pt was hospitalize (more content not included)... Normal [facility] Glomerular filtration rate ( GFR) estimation/1.73 sq m using serum, plasma, or whole bOrdered By: Nayana Peter on 12-13-2024 GFR/1.73 sq M.predicted among non-blacks MDRD (S/P/Bld) [Vol rate/Area] 92 mL/min/{1.73_m2} >60 [facility] Comment on above: mL/min/1.73m2 CKD-EP I Creatinine Equation (2020) Hematocrit Auto (Bld) [Volum e fraction]Ordered By: Nayana Peter on 12-13-2024 Hematocrit (Bld) [Volume fraction] 40.5 % 37-47 [facility] Hemoglobin measurementOrdere d By: Nayana Peter on 12-13-2024 Hemoglobin (Bld) [Mass/Vol] 13.2 g/dL 12.0-15.0 [facility] Immature granulocytes/100 WB C Auto (Bld)Ordered By: Nayana Peter on 12-13-2024 Immature granulocytes/100 WBC (Bld) 0.800 % 0.0-0.9 [facility] Comment on above: IG% - Immature Granu locytes (promyelocytes, myelocytes and metamyelocytes) > 1% indicates that a LEFT SHIFT is Present. Laboratory - Chemistry and C hemistry - challengeOrdered By: Nayana Peter on 12-13-2024 AST [Catalytic activity/Vol] 37 U/L High <32 [facility] MCV (mean corpuscular volume ) determinationOrdered By: Nayana Peter on 12-13-2024 MCV (RBC) [Entitic vol] 83.2 fL 81-99 [facility] Mean corpuscular hemoglobin (MCH) determinationOrdered By: Nayana Peter on 12-13-2024 MCH (RBC) [Entitic mass] 27.1 pg 27.0-32.0 [facility] Mean corpuscular hemoglobin concentration (MCHC) determinationOrdered By: Nayana Peter on 12-13-2024 MCHC (RBC) [Mass/Vol] 32.6 g/dL 32-36 [facility] Mean platelet volume determi nationOrdered By: Nayana Peter on 12-13-2024 Platelet mean volume (Bld) [Entitic vol] 10.1 fL 6.2-12.0 [facility] Monocyte percentageOrdered B y: Nayana Peter on 12-13-2024 Monocytes/100 WBC (Bld) 7.5 % 0-10 [facility] Neutrophil percentageOrdered By: Nayana Peter on 12-13-2024 Neutrophils/100 WBC (Bld) 52.2 % 47-70 [facility] Nucleated red blood cell per centageOrdered By: Nayana Peter on 12-13-2024 Nucleated RBC/100 WBC (Bld) [Ratio] 0 % 0-5 [facility] Platelet countOrdered By: Tiffanie Peter on 12-13-2024 Platelets (Bld) [#/Vol] 367 10*3/uL 150-450 [facility] Potassium measurement (mass/ volume)Ordered By: Nayana Peter on 12-13-2024 Potassium (Unsp spec) [Mass/Vol] 4.0 mmol/L 3.3-5.1 [facility] RBC Auto (Bld) [#/Vol]Ordere d By: Nayana Peter on 12-13-2024 RBC (Bld) [#/Vol] 4.87 10*6/uL 4.2-5.4 [facility] Serum creatinine measurement (mass/volume)Ordered By: Nayana Peter on 12-13-2024 Creatinine [Mass/Vol] 0.86 mg/dL 0.70-1.20 [facility] Serum globulin measurementOr dered By: Nayana Peter on 12-13-2024 Globulin (S) [Mass/Vol] 3.3 g/dL 2.2-4.2 [facility] Serum glucose measurement (m ass/volume)Ordered By: Nayana Peter on 12-13-2024 Glucose [Mass/Vol] 251 mg/dL High 70-99 [facility] Serum or plasma alanine jordan otransferase (ALT) measurementOrdered By: Nayana Peter on 12-13-2024 ALT [Catalytic activity/Vol] 36 U/L High <35 [facility] Serum or plasma albumin hussein urement (mass/volume)Ordered By: Nayana Peter on 12-13-2024 Albumin [Mass/Vol] 3.8 g/dL 3.5-5.0 [facility] Serum or plasma albumin/glob ulin mass ratioOrdered By: Nayana Peter on 12-13-2024 Albumin/Globulin [Mass ratio] 1.2 {ratio} 0.9-2.4 [facility] Serum or plasma alkaline bradley sphatase measurementOrdered By: Nayana Peter on 12-13-2024 ALP [Catalytic activity/Vol] 100 U/L 35-104 [facility] Serum or plasma calcium hussein urement (mass/volume)Ordered By: Nayana Peter on 12-13-2024 Calcium [Mass/Vol] 8.8 mg/dL 7.6-11.0 [facility] Serum or plasma urea nitroge n measurement (mass/volume)Ordered By: Nayana Peter on 12-13-2024 Urea nitrogen [Mass/Vol] 5 mg/dL 4-19 [facility] Sodium levelOrdered By: Oh Peter on 12-13-2024 Sodium [Moles/Vol] 139 mmol/L 133-145 [facility] Total proteinOrdered By: Candie Peter on 12-13-2024 Protein [Mass/Vol] 7.2 g/dL 5.9-8.4 [facility] White blood cell (WBC) count Ordered By: Nayana Peter on 12-13-2024 WBC (Bld) [#/Vol] 9.6 10*3/uL 4.4-11.0 [facility] Culture, Blood (WB)on 2024 CUB Blood cultures x2, f rom two different sites No growth in [address] [facility] Comment on above: Performed By: #### M 200.1000, L503.6005 #### [facility] [address] [place], [address] CUB Blood cultures x2, f rom two different sites No growth in [address] [facility] Comment on above: Performed By: #### L 700.6800, L100.0100, L500.2500 #### [facility] [address] [place], [address] Absolute lymphocyte countOrd ered By: Gale Lr on 11-28-2024 Lymphocytes Auto (Unsp spec) [#/Vol] 5.24 10*3/uL High 0.83-4.51 [facility] Absolute neutrophil countOrd ered By: Gale Lr on 11-28-2024 Neutrophils (Bld) [#/Vol] 6.1 10*3/uL 2.0-7.7 [facility] Anion gap in Serum or Plasma Ordered By: Gale Lr on 11-28-2024 Anion gap [Moles/Vol] 12 mmol/L - [facility] Automated lymphocyte count a s percentage of total leukocytesOrdered By: Gale Lr on 11-28-2024 Lymphocytes/100 WBC Auto (Unsp spec) 43.0 % High - [facility] BUN/creatinine ratioOrdered By: Gale Lr on 11-28-2024 Urea nitrogen/Creatinine [Mass ratio] 12.2 mg/mg 10- [facility] Basic Metabolic Profile (BMP )on 11-28-2024 BUN Normal 4- [facility] Comment on above: Result Comment: DUPL ICATE Performed By: #### L 500.2500, L100.0100 #### [facility] [address] [place], [address] BUN/CRE Normal 10-20 [facility] Comment on above: Result Comment: DUPL ICATE Performed By: #### L 500.2500, L100.0100 #### [facility] [address] [place], [address] Calcium Normal 7.6-11.0 [facility] Comment on above: Result Comment: DUPL ICATE Performed By: #### L 500.2500, L100.0100 #### [facility] [address] [place], [address] CL Normal 98-108 [facility] Comment on above: Result Comment: DUPL ICATE Performed By: #### L 500.2500, L100.0100 #### [facility] [address] [place], [address] CO2 Normal 21.0-32.0 [facility] Comment on above: Result Comment: DUPL ICATE Performed By: #### L 500.2500, L100.0100 #### [facility] [address] [place], [address] CREAT,SERUM Normal 0.70-1.20 [facility] Comment on above: Result Comment: DUPL ICATE Performed By: #### L 500.2500, L100.0100 #### [facility] [address] [place], [address] eGFR Normal >60 [facility] Comment on above: Result Comment: DUPL ICATE Performed By: #### L 500.2500, L100.0100 #### [facility] [address] [place], [address] GAP Normal 5-15 [facility] Comment on above: Result Comment: DUPL ICATE Performed By: #### L 500.2500, L100.0100 #### [facility] [address] [place], [address] GLU Normal 70-99 [facility] Comment on above: Result Comment: DUPL ICATE Performed By: #### L 500.2500, L100.0100 #### [facility] [address] [place], [address] Potassium Normal 3.3-5.1 [facility] Comment on above: Result Comment: DUPL ICATE Performed By: #### L 500.2500, L100.0100 #### [facility] [address] [place], [address] Basic Metabolic Profile (BMP) Normal 133-145 [facility] Comment on above: Result Comment: DUPL ICATE Performed By: #### L 500.2500, L100.0100 #### [facility] [address] [place], [address] BUN/CRE 12.2 RATIO Normal 10-20 [facility] Comment on above: Performed By: #### L 700.6800, L100.0100, L500.2500 #### [facility] [address] [place], [address] Calcium [Mass/Vol] 7.9 mg/dL Normal 7.6-11.0 [facility] Comment on above: Performed By: #### L 700.6800, L100.0100, L500.2500 #### [facility] [address] [place], [address] Chloride [Moles/Vol] 104 mmol/L Normal 98-108 [facility] Comment on above: Performed By: #### L 700.6800, L100.0100, L500.2500 #### [facility] [address] [place], [address] CO2 [Moles/Vol] 24.7 mmol/L Normal 21.0-32.0 [facility] Comment on above: Performed By: #### L 700.6800, L100.0100, L500.2500 #### [facility] [address] [place], [address] Creatinine [Mass/Vol] 1.02 mg/dL Normal 0.70-1.20 [facility] Comment on above: Performed By: #### L 700.6800, L100.0100, L500.2500 #### [facility] [address] [place], [address] ECRCL 99.83 ml/min Normal 50-250 [facility] Comment on above: Performed By: #### L 700.6800, L100.0100, L500.2500 #### [facility] [address] [place], [address] GAP 12 Normal 5-15 [facility] Comment on above: Performed By: #### L 700.6800, L100.0100, L500.2500 #### [facility] [address] [place], [address] GFR/1.73 sq M.predicted among non-blacks MDRD (S/P/Bld) [Vol rate/Area] 75 mL/min/{1.73_m2} Normal >60 [facility] Comment on above: Result Comment: mL/m in/1.73m2 CKD-EPI Creatinine Equation (2020) Performed By: #### L 700.6800, L100.0100, L500.2500 #### [facility] [address] [place], [address] Glucose [Mass/Vol] 134 mg/dL High 70-99 [facility] Comment on above: Performed By: #### L 700.6800, L100.0100, L500.2500 #### [facility] [address] [place], [address] Potassium [Moles/Vol] 3.5 mmol/L Normal 3.3-5.1 [facility] Comment on above: Performed By: #### L 700.6800, L100.0100, L500.2500 #### [facility] [address] [place], [address] Sodium [Moles/Vol] 141 mmol/L Normal 133-145 [facility] Comment on above: Performed By: #### L 700.6800, L100.0100, L500.2500 #### [facility] [address] [place], [address] Urea nitrogen [Mass/Vol] 12 mg/dL Normal 4-19 [facility] Comment on above: Performed By: #### L 700.6800, L100.0100, L500.2500 #### [facility] [address] [place], [address] Basophil percentageOrdered B y: Gale Be on 11-28-2024 Basophils/100 WBC (Bld) 0.6 % 0-1 [facility] Bedside Glucoseon 11-28-2024 FINGERSTICK GLU 127 mg/dL High 74-106 [facility] Comment on above: Result Comment: BULL SAMAYOA OF PATIENT CARE PER NURSING PROTOCOL Performed By: #### L 501.080 #### [facility] [address] [place], [address] CBC W/Diff, Automatedon 11-10 Absolute Neut Normal 2.0-7.7 [facility] Comment on above: Result Comment: DUPL ICATE Performed By: #### L 500.2500, L100.0100 #### [facility] [address] [place], [address] HCT Normal 37-47 [facility] Comment on above: Result Comment: DUPL ICATE Performed By: #### L 500.2500, L100.0100 #### [facility] [address] [place], [address] HGB Normal 12.0-15.0 [facility] Comment on above: Result Comment: DUPL ICATE Performed By: #### L 500.2500, L100.0100 #### [facility] [address] [place], [address] MCH Normal 27.0-32.0 [facility] Comment on above: Result Comment: DUPL ICATE Performed By: #### L 500.2500, L100.0100 #### [facility] [address] [place], [address] MCHC Normal 32-36 [facility] Comment on above: Result Comment: DUPL ICATE Performed By: #### L 500.2500, L100.0100 #### [facility] [address] [place], [address] MCV Normal 81-99 [facility] Comment on above: Result Comment: DUPL ICATE Performed By: #### L 500.2500, L100.0100 #### [facility] [address] [place], [address] NEUT% Normal 47-70 [facility] Comment on above: Result Comment: DUPL ICATE Performed By: #### L 500.2500, L100.0100 #### [facility] [address] [place], [address] PLT Normal 150-450 [facility] Comment on above: Result Comment: DUPL ICATE Performed By: #### L 500.2500, L100.0100 #### [facility] [address] [place], [address] RBC Normal 4.2-5.4 [facility] Comment on above: Result Comment: DUPL ICATE Performed By: #### L 500.2500, L100.0100 #### [facility] [address] [place], [address] RDW CV Normal 11.6-14.6 [facility] Comment on above: Result Comment: DUPL ICATE Performed By: #### L 500.2500, L100.0100 #### [facility] [address] [place], [address] RDW SD Normal 35.1-43.9 [facility] Comment on above: Result Comment: DUPL ICATE Performed By: #### L 500.2500, L100.0100 #### [facility] [address] [place], [address] WBC Normal 4.4-11.0 [facility] Comment on above: Result Comment: DUPL ICATE Performed By: #### L 500.2500, L100.0100 #### [facility] [address] [place], [address] Absolute Lymph 5.24 X10 3/uL High 0.83-4.51 [facility] Comment on above: Performed By: #### L 700.6800, L100.0100, L500.2500 #### [facility] [address] [place], [address] Absolute Neut 6.1 X10 3/uL Normal 2.0-7.7 [facility] Comment on above: Performed By: #### L 700.6800, L100.0100, L500.2500 #### [facility] [address] [place], [address] Basophils/100 WBC (Bld) 0.6 % Normal 0-1 [facility] Comment on above: Performed By: #### L 700.6800, L100.0100, L500.2500 #### [facility] [address] [place], [address] Eosinophils/100 WBC (Bld) 0.5 % Normal 0-5 [facility] Comment on above: Performed By: #### L 700.6800, L100.0100, L500.2500 #### [facility] [address] [place], [address] Erythrocyte distribution width (RBC) [Ratio] 13.7 % Normal 11.6-14.6 [facility] Comment on above: Performed By: #### L 700.6800, L100.0100, L500.2500 #### [facility] [address] [place], [address] Hematocrit (Bld) [Volume fraction] 37.0 % Normal 37-47 [facility] Comment on above: Performed By: #### L 700.6800, L100.0100, L500.2500 #### [facility] [address] [place], [address] Hemoglobin (Bld) [Mass/Vol] 12.1 g/dL Normal 12.0-15.0 [facility] Comment on above: Performed By: #### L 700.6800, L100.0100, L500.2500 #### [facility] [address] [place], [address] IG% 0.800 Normal 0.0-0.9 [facility] Comment on above: Result Comment: IG% - Immature Granulocytes (promyelocytes, myelocytes and metamyelocytes) > 1% indicates that a LEFT SHIFT is Present. Performed By: #### L 700.6800, L100.0100, L500.2500 #### [facility] [address] [place], [address] Lymphocytes/100 WBC (Bld) 43.0 % High 19-41 [facility] Comment on above: Performed By: #### L 700.6800, L100.0100, L500.2500 #### [facility] [address] [place], [address] MCH (RBC) [Entitic mass] 27.3 pg Normal 27.0-32.0 [facility] Comment on above: Performed By: #### L 700.6800, L100.0100, L500.2500 #### [facility] [address] [place], [address] MCHC (RBC) [Mass/Vol] 32.7 g/dL Normal 32-36 [facility] Comment on above: Performed By: #### L 700.6800, L100.0100, L500.2500 #### [facility] [address] [place], [address] MCV (RBC) [Entitic vol] 83.3 fL Normal 81-99 [facility] Comment on above: Performed By: #### L 700.6800, L100.0100, L500.2500 #### [facility] [address] [place], [address] Monocytes/100 WBC (Bld) 5.3 % Normal 0-10 [facility] Comment on above: Performed By: #### L 700.6800, L100.0100, L500.2500 #### [facility] [address] [place], [address] Neutrophils/100 WBC (Bld) 49.8 % Normal 47-70 [facility] Comment on above: Performed By: #### L 700.6800, L100.0100, L500.2500 #### [facility] [address] [place], [address] Nucleated RBC (Bld) [#/Vol] 0 10*3/uL Normal 0-5 [facility] Comment on above: Performed By: #### L 700.6800, L100.0100, L500.2500 #### [facility] [address] [place], [address] Platelet mean volume (Bld) [Entitic vol] 9.3 fL Normal 6.2-12.0 [facility] Comment on above: Performed By: #### L 700.6800, L100.0100, L500.2500 #### [facility] [address] [place], [address] Platelets (Bld) [#/Vol] 400 10*3/uL Normal 150-450 [facility] Comment on above: Performed By: #### L 700.6800, L100.0100, L500.2500 #### [facility] [address] [place], [address] RBC (Bld) [#/Vol] 4.44 10*6/uL Normal 4.2-5.4 [facility] Comment on above: Performed By: #### L 700.6800, L100.0100, L500.2500 #### [facility] [address] [place], [address] RDW SD 41.8 fl Normal 35.1-43.9 [facility] Comment on above: Performed By: #### L 700.6800, L100.0100, L500.2500 #### [facility] [address] [place], [address] WBC (Bld) [#/Vol] 12.2 10*3/uL High 4.4-11.0 [facility] Comment on above: Performed By: #### L 700.6800, L100.0100, L500.2500 #### [facility] [address] [place], [address] Carbon dioxide, total [Moles /volume] in Central venous bloodOrdered By: Gale Lr on 11-28-2024 CO2 [Moles/Vol] 24.7 mmol/L 21.0-32.0 [facility] Chloride assayOrdered By: Sun Lr on 11-28-2024 Chloride [Moles/Vol] 104 mmol/L 98-108 [facility] Eosinophil percentageOrdered By: Gale Lr on 11-28-2024 Eosinophils/100 WBC (Bld) 0.5 % 0-5 [facility] Erythrocyte distribution wid th ratioOrdered By: Gale Lr on 11-28-2024 Erythrocyte distribution width (RBC) [Ratio] 13.7 % 11.6-14.6 [facility] Erythrocyte distribution wid th standard deviationOrdered By: Gale Lr on 11-28-2024 Erythrocyte distribution width (RBC) [Ratio] 41.8 fl 35.1-43.9 [facility] Glomerular filtration rate ( GFR) estimation/1.73 sq m using serum, plasma, or whole bOrdered By: Gale Lr on 11-28-2024 GFR/1.73 sq M.predicted among non-blacks MDRD (S/P/Bld) [Vol rate/Area] 75 mL/min/{1.73_m2} >60 [facility] Comment on above: mL/min/1.73m2 CKD-EP I Creatinine Equation (2020) [facility] at [facility] deOrdered By: Gale Lr on 11-28-2024 Glucose [Mass/Vol] 127 mg/dL High 74-106 [facility] Comment on above: MANAGEMENT OF PATIEN T CARE PER NURSING PROTOCOL Hematocrit Auto (Bld) [Volum e fraction]Ordered By: Gale Lr on 11-28-2024 Hematocrit (Bld) [Volume fraction] 37.0 % 37-47 [facility] Hemoglobin measurementOrdere d By: Gale Lr on 11-28-2024 Hemoglobin (Bld) [Mass/Vol] 12.1 g/dL 12.0-15.0 [facility] Immature granulocytes/100 WB C Auto (Bld)Ordered By: Gale Lr on 11-28-2024 Immature granulocytes/100 WBC (Bld) 0.800 % 0.0-0.9 [facility] Comment on above: IG% - Immature Granu locytes (promyelocytes, myelocytes and metamyelocytes) > 1% indicates that a LEFT SHIFT is Present. MCV (mean corpuscular volume ) determinationOrdered By: Gale Lr on 11-28-2024 MCV (RBC) [Entitic vol] 83.3 fL 81-99 [facility] Mean corpuscular hemoglobin (MCH) determinationOrdered By: Gale Lr on 11-28-2024 MCH (RBC) [Entitic mass] 27.3 pg 27.0-32.0 [facility] Mean corpuscular hemoglobin concentration (MCHC) determinationOrdered By: Gale Lr on 11-28-2024 MCHC (RBC) [Mass/Vol] 32.7 g/dL 32-36 [facility] Mean platelet volume determi nationOrdered By: Gale Lr on 11-28-2024 Platelet mean volume (Bld) [Entitic vol] 9.3 fL 6.2-12.0 [facility] Monocyte percentageOrdered B y: Gale Lr on 11-28-2024 Monocytes/100 WBC (Bld) 5.3 % 0-10 [facility] Neutrophil percentageOrdered By: Gale Lr on 11-28-2024 Neutrophils/100 WBC (Bld) 49.8 % 47-70 [facility] Nucleated red blood cell per centageOrdered By: Gale Lr on 11-28-2024 Nucleated RBC/100 WBC (Bld) [Ratio] 0 % 0-5 [facility] Platelet countOrdered By: Sun Lr on 11-28-2024 Platelets (Bld) [#/Vol] 400 10*3/uL 150-450 [facility] Potassium measurement (mass/ volume)Ordered By: Gale Lr on 11-28-2024 Potassium (Unsp spec) [Mass/Vol] 3.5 mmol/L 3.3-5.1 [facility] RBC Auto (Bld) [#/Vol]Ordere d By: Gale Lr on 11-28-2024 RBC (Bld) [#/Vol] 4.44 10*6/uL 4.2-5.4 [facility] Serum creatinine measurement (mass/volume)Ordered By: Gale Lr on 11-28-2024 Creatinine [Mass/Vol] 1.02 mg/dL 0.70-1.20 [facility] Serum glucose measurement (m ass/volume)Ordered By: Gale Lr on 11-28-2024 Glucose [Mass/Vol] 134 mg/dL High 70-99 [facility] Serum or plasma calcium hussein urement (mass/volume)Ordered By: Gale Lr on 11-28-2024 Calcium [Mass/Vol] 7.9 mg/dL 7.6-11.0 [facility] Serum or plasma urea nitroge n measurement (mass/volume)Ordered By: Gale Lr on 11-28-2024 Urea nitrogen [Mass/Vol] 12 mg/dL 4-19 [facility] Sodium levelOrdered By: Argelia Lr on 11-28-2024 Sodium [Moles/Vol] 141 mmol/L 133-145 [facility] White blood cell (WBC) count Ordered By: Gale Lr on 11-28-2024 WBC (Bld) [#/Vol] 12.2 10*3/uL High 4.4-11.0 [facility] Abdomen/Pelvis WITH Contrast on 11-27-2024 Abdomen/Pelvis WITH Contrast [facility] [address] [place], [place] [address] Abdomen/Pelvis WITH Contrast MR#: [id number] Acct: [id number] Name: GHISLAINE GIVENS Rep #: [id number] : 1990 F 34 From: Bernard ruelas MD PCP: BROOKLYN Warren, [employer] SUPERVISOR-C Status: ADM IN Study: Abdomen/Pelvis WITH Contrast Date of Exam: Exam# [id number] Ordering Dr: Clare Loo A-C PROCEDURE: ABDOMEN/PELVIS WITH CONTRAST 11/27/2024 REASON FOR EXAM: ABDOMINAL PAIN Constipation TECHNIQUE: Abdomen and pelvis CT with intravenous contrast. Coronal and Sagittal reconstruction series were provided. PATIENT PREPARATION: Per protocol ORAL CONTRAST TYPE: Given AMOUNT: 200 mL CONTRAST: Isovue-300 VOLUME: 100 mL One or more dose reduction techniques were used (e.g., Automated exposure control, adjustment of the mA and/or kV according to patient size, use of iterative reconstruction technique. RADIATION DOSE SUMMARY: CTDlvol: 12 mGy DLP: 1384.33 mGycm COMPARISON: Prior study dated November 25, 2024.1 FINDINGS: Lung bases: Unremarkable Liver: Diffuse fatty infiltration. Borderline hepatomegaly. Gallbladder: Density seen within the gallbladder suggestive of possible sludge versus tiny gallstones. Spleen: Normal size. Pancreas: Normal size without evidence of mass surrounding inflammation or ductal dilation. Adrenals: Unremarkable Kidneys: Normal renal sizes. No hydronephrosis. Bladder: The bladder is empty. Reproductive Organs: Normal uterine size and contour. Ovaries are unremarkable. Small follicle is seen in the left ovary. Bowel: There is evidence of circumferential wall thickening and pericolonic inflammatory change in the rectosigmoid colon suggestive of colitis. Increased markings in the surrounding perirectal fat. Appendix: Unremarkable Lymph nodes: Unremarkable. Vasculature: The abdominal aorta and IVC are normal. Peritoneum / Retroperitoneum: Unremarkable Bones: Unremarkable CT/Abdomen/Pelvis WITH Contrast IMPRESSION: Fatty infiltration of the liver. Sludge is seen in the gallbladder lumen. Findings suggestive of colitis involving the rectosigmoid colon. There has been mild improvement as compared to prior study. Reading Location: [place] [address] CC: ESCOBAR Loo; [facility] PATRICE Solorzano Hearing Aid Assistant: Signed Normal [facility] Basic Metabolic Profile (BMP )on 11-27-2024 BUN/CRE 15.0 RATIO Normal 10-20 [facility] Comment on above: Performed By: #### L 500.2500, L100.0100 #### [facility] [address] [place], [address] Calcium [Mass/Vol] 7.9 mg/dL Normal 7.6-11.0 [facility] Comment on above: Performed By: #### L 500.2500, L100.0100 #### [facility] [address] [place], [address] Chloride [Moles/Vol] 102 mmol/L Normal 98-108 [facility] Comment on above: Performed By: #### L 500.2500, L100.0100 #### [facility] [address] [place], [address] CO2 [Moles/Vol] 24.2 mmol/L Normal 21.0-32.0 [facility] Comment on above: Performed By: #### L 500.2500, L100.0100 #### [facility] [address] [place], [address] Creatinine [Mass/Vol] 1.07 mg/dL Normal 0.70-1.20 [facility] Comment on above: Performed By: #### L 500.2500, L100.0100 #### [facility] [address] [place], [address] ECRCL 95.16 ml/min Normal 50-250 [facility] Comment on above: Performed By: #### L 500.2500, L100.0100 #### [facility] [address] [place], [address] GAP 13 Normal 5-15 [facility] Comment on above: Performed By: #### L 500.2500, L100.0100 #### [facility] [address] [place], [address] GFR/1.73 sq M.predicted among non-blacks MDRD (S/P/Bld) [Vol rate/Area] 71 mL/min/{1.73_m2} Normal >60 [facility] Comment on above: Result Comment: mL/m in/1.73m2 CKD-EPI Creatinine Equation (2020) Performed By: #### L 500.2500, L100.0100 #### [facility] [address] [place], [address] Glucose [Mass/Vol] 217 mg/dL High 70-99 [facility] Comment on above: Performed By: #### L 500.2500, L100.0100 #### [facility] [address] [place], [address] Potassium [Moles/Vol] 4.1 mmol/L Normal 3.3-5.1 [facility] Comment on above: Performed By: #### L 500.2500, L100.0100 #### [facility] [address] [place], [address] Sodium [Moles/Vol] 139 mmol/L Normal 133-145 [facility] Comment on above: Performed By: #### L 500.2500, L100.0100 #### [facility] [address] [place], [address] Urea nitrogen [Mass/Vol] 16 mg/dL Normal 4-19 [facility] Comment on above: Performed By: #### L 500.2500, L100.0100 #### [facility] [address] [place], [address] Bedside Glucoseon 11-27-2024 FINGERSTICK GLU 175 mg/dL High -106 [facility] Comment on above: Result Comment: BULL GEMENT OF PATIENT CARE PER NURSING PROTOCOL Performed By: #### L 500.2500, L100.0100 #### [facility] [address] [place], [address] FINGERSTICK GLU 147 mg/dL High 74-106 [facility] Comment on above: Result Comment: BULL GEMENT OF PATIENT CARE PER NURSING PROTOCOL Performed By: #### L 500.2500, L100.0100 #### [facility] [address] [place], [address] FINGERSTICK GLU 197 mg/dL High -106 [facility] Comment on above: Result Comment: BULL GEMENT OF PATIENT CARE PER NURSING PROTOCOL Performed By: #### L 500.2500, L100.0100 #### [facility] [address] [place], [address] FINGERSTICK GLU 185 mg/dL High -106 [facility] Comment on above: Result Comment: BULL GEMENT OF PATIENT CARE PER NURSING PROTOCOL Performed By: #### L 500.2500, L100.0100 #### [facility] [address] [place], [address] Bilirubin directOrdered By: Gale Lr on 11-27-2024 Bilirubin.direct [Mass/Vol] 0.14 mg/dL 0.00-0.30 [facility] Bilirubin, totalOrdered By: Gale Lr on 11-27-2024 Bilirubin [Mass/Vol] 0.35 mg/dL 0.00-1.30 [facility] CBC W/Diff, Automatedon 11-09 Absolute Lymph 2.31 X10 3/uL Normal 0.83-4.51 [facility] Comment on above: Performed By: #### L 500.2500, L100.0100 #### [facility] [address] [place], [address] Absolute Neut 9.7 X10 3/uL High 2.0-7.7 [facility] Comment on above: Performed By: #### L 500.2500, L100.0100 #### [facility] [address] [place], [address] Basophils/100 WBC (Bld) 0.2 % Normal 0-1 [facility] Comment on above: Performed By: #### L 500.2500, L100.0100 #### [facility] [address] [place], [address] Eosinophils/100 WBC (Bld) 0.0 % Normal 0-5 [facility] Comment on above: Performed By: #### L 500.2500, L100.0100 #### [facility] [address] [place], [address] Erythrocyte distribution width (RBC) [Ratio] 13.8 % Normal 11.6-14.6 [facility] Comment on above: Performed By: #### L 500.2500, L100.0100 #### [facility] [address] [place], [address] Hematocrit (Bld) [Volume fraction] 34.7 % Low 37-47 [facility] Comment on above: Performed By: #### L 500.2500, L100.0100 #### [facility] [address] [place], [address] Hemoglobin (Bld) [Mass/Vol] 11.3 g/dL Low 12.0-15.0 [facility] Comment on above: Performed By: #### L 500.2500, L100.0100 #### [facility] [address] [place], [address] IG% 0.600 Normal 0.0-0.9 [facility] Comment on above: Result Comment: IG% - Immature Granulocytes (promyelocytes, myelocytes and metamyelocytes) > 1% indicates that a LEFT SHIFT is Present. Performed By: #### L 500.2500, L100.0100 #### [facility] [address] [place], [address] Lymphocytes/100 WBC (Bld) 18.1 % Low 19-41 [facility] Comment on above: Performed By: #### L 500.2500, L100.0100 #### [facility] [address] [place], [address] MCH (RBC) [Entitic mass] 27.0 pg Normal 27.0-32.0 [facility] Comment on above: Performed By: #### L 500.2500, L100.0100 #### [facility] [address] [place], [address] MCHC (RBC) [Mass/Vol] 32.6 g/dL Normal 32-36 [facility] Comment on above: Performed By: #### L 500.2500, L100.0100 #### [facility] [address] [place], [address] MCV (RBC) [Entitic vol] 83.0 fL Normal 81-99 [facility] Comment on above: Performed By: #### L 500.2500, L100.0100 #### [facility] [address] [place], [address] Monocytes/100 WBC (Bld) 5.2 % Normal 0-10 [facility] Comment on above: Performed By: #### L 500.2500, L100.0100 #### [facility] [address] [place], [address] Neutrophils/100 WBC (Bld) 75.9 % High 47-70 [facility] Comment on above: Performed By: #### L 500.2500, L100.0100 #### [facility] [address] [place], [address] Nucleated RBC (Bld) [#/Vol] 0 10*3/uL Normal 0-5 [facility] Comment on above: Performed By: #### L 500.2500, L100.0100 #### [facility] [address] [place], [address] Platelet mean volume (Bld) [Entitic vol] 9.6 fL Normal 6.2-12.0 [facility] Comment on above: Performed By: #### L 500.2500, L100.0100 #### [facility] [address] [place], [address] Platelets (Bld) [#/Vol] 354 10*3/uL Normal 150-450 [facility] Comment on above: Performed By: #### L 500.2500, L100.0100 #### [facility] [address] [place], [address] RBC (Bld) [#/Vol] 4.18 10*6/uL Low 4.2-5.4 [facility] Comment on above: Performed By: #### L 500.2500, L100.0100 #### [facility] [address] [place], [address] RDW SD 42.2 fl Normal 35.1-43.9 [facility] Comment on above: Performed By: #### L 500.2500, L100.0100 #### [facility] [address] [place], [address] WBC (Bld) [#/Vol] 12.8 10*3/uL High 4.4-11.0 [facility] Comment on above: Performed By: #### L 500.2500, L100.0100 #### [facility] [address] [place], [address] Laboratory - Chemistry and C hemistry - challengeOrdered By: Gale Lr on 11-27-2024 AST [Catalytic activity/Vol] 21 U/L <32 [facility] Liver Profileon 11-27-2024 Albumin [Mass/Vol] 3.5 g/dL Normal 3.5-5.0 [facility] Comment on above: Performed By: #### L 500.3400 #### [facility] [address] [place], [address] ALK PHOS 88 U/L Normal 35-104 [facility] Comment on above: Performed By: #### L 500.3400 #### [facility] [address] [place], [address] ALT [Catalytic activity/Vol] 12 U/L Normal <=34 [facility] Comment on above: Performed By: #### L 500.3400 #### [facility] [address] [place], [address] AST [Catalytic activity/Vol] 21 U/L Normal <=31 [facility] Comment on above: Performed By: #### L 500.3400 #### [facility] [address] [place], [address] Bilirubin [Mass/Vol] 0.35 mg/dL Normal 0.00-1.30 [facility] Comment on above: Performed By: #### L 500.3400 #### [facility] [address] [place], [place], [address] Bilirubin.direct [Mass/Vol] 0.14 mg/dL Normal 0.00-0.30 [facility] Comment on above: Performed By: #### L 500.3400 #### [facility] [address] [place], [place], [address] Globulin (S) [Mass/Vol] 3.6 g/dL Normal 2.2-4.2 [facility] Comment on above: Performed By: #### L 500.3400 #### [facility] [address] [place], [place], [id number] (474) T PROT 7.1 g/dL Normal 5.9-8.4 [facility] Comment on above: Performed By: #### L 500.3400 #### [facility] [address] [place], [place], [id number] Serum globulin measurementOr dered By: Gale Lr on 11-27-2024 Globulin (S) [Mass/Vol] 3.6 g/dL 2.2-4.2 [facility] Serum or plasma alanine jordan otransferase (ALT) measurementOrdered By: Gale Lr on 11-27-2024 ALT [Catalytic activity/Vol] 12 U/L <35 [facility] Serum or plasma albumin hussein urement (mass/volume)Ordered By: Gale Lr on 11-27-2024 Albumin [Mass/Vol] 3.5 g/dL 3.5-5.0 [facility] Serum or plasma alkaline bradley sphatase measurementOrdered By: Gale Lr on 11-27-2024 ALP [Catalytic activity/Vol] 88 U/L 35-104 [facility] Total proteinOrdered By: Sugar Lr on 11-27-2024 Protein [Mass/Vol] 7.1 g/dL 5.9-8.4 [facility] Abdomen Single Viewon 2024 Abdomen Single View [facility] Imaging Services [address] [place], [place] [address] [phone] Abdomen Single View MR#: [id number] Acct: [id number] Name: GHISLAINE GIVENS Rep #: [id number] : 1990 F 34 From: Frantz Barfield MD PCP: Amy Solorzano, [facility], [employer] SUPERVISOR-C Status: ADM IN Study: Abdomen Single View Date of Exam: 11/26/24 Exam# [id number] Ordering Dr: Annalise Welch MD EXAM: XR Abdomen, 1 View CLINICAL INDICATION: FECAL IMPACTION-RECTUM TECHNIQUE: Frontal supine view of the abdomen/pelvis. COMPARISON: No relevant prior studies available. FINDINGS: GASTROINTESTINAL TRACT: Constipation with suggestion of fecal impaction of the rectum. No dilation. BONES/JOINTS: Unremarkable. No acute fracture. RAD/Abdomen Single View IMPRESSION: Constipation with suggestion of fecal impaction of the rectum. Reading Location: [id number] CC: [facility] SH[employer]ITTERS SUPERVISOR-C Amy Solorzano; Dr. Annalise Welch MD Hearing Aid Assistant: Signed Normal [facility] Basic Metabolic Profile (BMP )on 11-26-2024 BUN/CRE 15.0 RATIO Normal 10-20 [facility] Comment on above: Performed By: #### L 500.3400 #### [facility] [address] [place], [address] Calcium [Mass/Vol] 7.8 mg/dL Normal 7.6-11.0 [facility] Comment on above: Performed By: #### L 500.3400 #### [facility] [address] [place], [address] Chloride [Moles/Vol] 104 mmol/L Normal 98-108 [facility] Comment on above: Performed By: #### L 500.3400 #### [facility] [address] [facility] [address] CO2 [Moles/Vol] 22.6 mmol/L Normal 21.0-32.0 [facility] Comment on above: Performed By: #### L 500.3400 #### [facility] [address] [place], [address] Creatinine [Mass/Vol] 1.16 mg/dL Normal 0.70-1.20 [facility] Comment on above: Performed By: #### L 500.3400 #### [facility] [address] [place], [address] ECRCL 87.78 ml/min Normal 50-250 [facility] Comment on above: Performed By: #### L 500.3400 #### [facility] [address] [place], [address] GAP 11 Normal 5-15 [facility] Comment on above: Performed By: #### L 500.3400 #### [facility] [address] [place], [address] GFR/1.73 sq M.predicted among non-blacks MDRD (S/P/Bld) [Vol rate/Area] 64 mL/min/{1.73_m2} Normal >60 [facility] Comment on above: Result Comment: mL/m in/1.73m2 CKD-EPI Creatinine Equation (2020) Performed By: #### L 500.3400 #### [facility] [address] [place], [address] Glucose [Mass/Vol] 148 mg/dL High 70-99 [facility] Comment on above: Performed By: #### L 500.3400 #### [facility] [address] [place], [address] Potassium [Moles/Vol] 4.0 mmol/L Normal 3.3-5.1 [facility] Comment on above: Performed By: #### L 500.3400 #### [facility] [address] [place], [address] Sodium [Moles/Vol] 137 mmol/L Normal 133-145 [facility] Comment on above: Performed By: #### L 500.3400 #### [facility] [address] [place], [address] Urea nitrogen [Mass/Vol] 17 mg/dL Normal 4-19 [facility] Comment on above: Performed By: #### L 500.3400 #### [facility] [address] [place], [address] Bedside Glucoseon 11-26-2024 FINGERSTICK GLU 185 mg/dL High 74-106 [facility] Comment on above: Result Comment: BULL GEMENT OF PATIENT CARE PER NURSING PROTOCOL Performed By: #### L 501.080 #### [facility] [address] [place], [address] FINGERSTICK GLU 218 mg/dL High 74-106 [facility] Comment on above: Result Comment: BULL GEMENT OF PATIENT CARE PER NURSING PROTOCOL Performed By: #### L 700.6800, L100.0100, L500.2500 #### [facility] [address] [place], [address] FINGERSTICK GLU 202 mg/dL High -106 [facility] Comment on above: Result Comment: BULL GEMENT OF PATIENT CARE PER NURSING PROTOCOL Performed By: #### L 500.2500, L100.0100 #### [facility] [address] [place], [address] FINGERSTICK GLU 160 mg/dL High 74-106 [facility] Comment on above: Result Comment: BULL GEMENT OF PATIENT CARE PER NURSING PROTOCOL Performed By: #### L 700.6800, L100.0100, L500.2500 #### [facility] [address] [place], [address] FINGERSTICK GLU 166 mg/dL High -106 [facility] Comment on above: Result Comment: BULL GEMENT OF PATIENT CARE PER NURSING PROTOCOL Performed By: #### L 500.2500, L100.0100 #### [facility] [address] [place], [address] CBC W/Diff, Automatedon 05-1 -2024 Absolute Lymph 3.42 X10 3/uL Normal 0.83-4.51 [facility] Comment on above: Performed By: #### L 500.2500, L100.0100 #### [facility] [address] [place], [address] Absolute Neut 12.9 X10 3/uL High 2.0-7.7 [facility] Comment on above: Performed By: #### L 500.2500, L100.0100 #### [facility] [address] [place], [address] Basophils/100 WBC (Bld) 0.2 % Normal 0-1 [facility] Comment on above: Performed By: #### L 500.2500, L100.0100 #### [facility] [address] [place], [address] Eosinophils/100 WBC (Bld) 0.2 % Normal 0-5 [facility] Comment on above: Performed By: #### L 500.2500, L100.0100 #### [facility] [address] [place], [address] Erythrocyte distribution width (RBC) [Ratio] 13.9 % Normal 11.6-14.6 [facility] Comment on above: Performed By: #### L 500.2500, L100.0100 #### [facility] [address] [place], [address] Hematocrit (Bld) [Volume fraction] 34.2 % Low 37-47 [facility] Comment on above: Performed By: #### L 500.2500, L100.0100 #### [facility] [address] [place], [address] Hemoglobin (Bld) [Mass/Vol] 11.0 g/dL Low 12.0-15.0 [facility] Comment on above: Performed By: #### L 500.2500, L100.0100 #### [facility] [address] [place], [address] IG% 0.600 Normal 0.0-0.9 [facility] Comment on above: Result Comment: IG% - Immature Granulocytes (promyelocytes, myelocytes and metamyelocytes) > 1% indicates that a LEFT SHIFT is Present. Performed By: #### L 500.2500, L100.0100 #### [facility] [address] [place], [address] Lymphocytes/100 WBC (Bld) 19.4 % Normal 19-41 [facility] Comment on above: Performed By: #### L 500.2500, L100.0100 #### [facility] [address] [place], [address] MCH (RBC) [Entitic mass] 27.0 pg Normal 27.0-32.0 [facility] Comment on above: Performed By: #### L 500.2500, L100.0100 #### [facility] [address] [place], [address] MCHC (RBC) [Mass/Vol] 32.2 g/dL Normal 32-36 [facility] Comment on above: Performed By: #### L 500.2500, L100.0100 #### [facility] [address] [place], [address] MCV (RBC) [Entitic vol] 83.8 fL Normal 81-99 [facility] Comment on above: Performed By: #### L 500.2500, L100.0100 #### [facility] [address] [place], [address] Monocytes/100 WBC (Bld) 6.2 % Normal 0-10 [facility] Comment on above: Performed By: #### L 500.2500, L100.0100 #### [facility] [address] [place], [address] Neutrophils/100 WBC (Bld) 73.4 % High 47-70 [facility] Comment on above: Performed By: #### L 500.2500, L100.0100 #### [facility] [address] [place], [address] Nucleated RBC (Bld) [#/Vol] 0 10*3/uL Normal 0-5 [facility] Comment on above: Performed By: #### L 500.2500, L100.0100 #### [facility] [address] [place], [address] Platelet mean volume (Bld) [Entitic vol] 9.8 fL Normal 6.2-12.0 [facility] Comment on above: Performed By: #### L 500.2500, L100.0100 #### [facility] [address] [place], [address] Platelets (Bld) [#/Vol] 308 10*3/uL Normal 150-450 [facility] Comment on above: Performed By: #### L 500.2500, L100.0100 #### [facility] [address] [place], [address] RBC (Bld) [#/Vol] 4.08 10*6/uL Low 4.2-5.4 [facility] Comment on above: Performed By: #### L 500.2500, L100.0100 #### [facility] [address] [place], [address] RDW SD 43.0 fl Normal 35.1-43.9 [facility] Comment on above: Performed By: #### L 500.2500, L100.0100 #### [facility] [address] [place], [address] WBC (Bld) [#/Vol] 17.6 10*3/uL High 4.4-11.0 [facility] Comment on above: Performed By: #### L 500.2500, L100.0100 #### [facility] [address] [place], [place], [address] Abdomen/Pelvis W IV Cont ONL Yon 11-25-2024 Abdomen/Pelvis W IV Cont ONLY [facility] Imaging Services [address] [place] [address] Abdomen/Pelvis W IV Cont ONLY MR#: [id number] Acct: [id number] Name: GHISLAINE GIVENS Rep #: [id number] : 1990 F 34 From: Frantz Barfield MD PCP: BROOKLYN Warren, [employer] SUPERVISOR-C Status: [facility] ER Study: Abdomen/Pelvis W IV Cont ONLY Date of Exam: Exam# [id number] Ordering Dr: Drew Hinson MD EXAM: CT Abdomen and Pelvis With Intravenous Contrast CLINICAL INDICATION: DIARRHEA, PAIN TECHNIQUE: Axial computed tomography images of the abdomen and pelvis with intravenous contrast. This CT exam was performed using one or more of the following dose reduction techniques: automated exposure control, adjustment of the mA and/or kV according to patient size, and/or use of iterative reconstruction technique. COMPARISON: CT Abdomen Pelvis dated 06/26/2023 FINDINGS: LUNG BASES: Unremarkable. No mass. No consolidation. ABDOMEN: LIVER: Hepatomegaly with fatty infiltration. GALLBLADDER AND BILE DUCTS: Unremarkable. No calcified stones. No ductal dilation. PANCREAS: Unremarkable. No mass. No ductal dilation. SPLEEN: Unremarkable. No splenomegaly. ADRENALS: Unremarkable. No mass. KIDNEYS AND URETERS: Unremarkable. No solid mass. No hydronephrosis. STOMACH AND BOWEL: Fecal impaction with apparent wall thickening of the distal colon and rectum suggesting proctitis and colitis. Clinical correlation is recommended. No obstruction. PELVIS: APPENDIX: No findings to suggest acute appendicitis. BLADDER: Unremarkable. No mass. REPRODUCTIVE: Unremarkable as visualized. ABDOMEN and PELVIS: INTRAPERITONEAL SPACE: Unremarkable. No free air. No significant fluid collection. BONES/JOINTS: No acute fracture. No dislocation. SOFT TISSUES: Unremarkable. VASCULATURE: Unremarkable. No abdominal aortic aneurysm. LYMPH NODES: Unremarkable. No enlarged lymph nodes. CT/Abdomen/Pelvis W IV Cont ONLY IMPRESSION: 1. Fecal impaction with apparent wall thickening of the distal colon and rectum suggesting proctitis and colitis. Clinical correlation is recommended. 2. Hepatomegaly with fatty infiltration. Reading Location: [facility] CC: [facility] SH[employer]TERS SUPERVISOR-C Amy Solorzano; Dr. Drew Hinson MD Hearing Aid Assistant: Signed Normal [facility] Absolute lymphocyte countOrd ered By: Drew Hinson on 11-25-2024 Lymphocytes Auto (Unsp spec) [#/Vol] 3.09 10*3/uL 0.83-4.51 [facility] Absolute neutrophil countOrd ered By: Drew Hinson on 11-25-2024 Neutrophils (Bld) [#/Vol] 21.5 10*3/uL High 2.0-7.7 [facility] Acute Abdomen Inc Cheston Acute Abdomen Inc Chest [facility] Imaging Services [address] [place], [place] [id number] Acute Abdomen Inc Chest MR#: [id number] Acct: [id number] Name: GHISLAINE GIVENS Rep #: [id number] : 1990 F 34 From: Frantz Barfield MD PCP: Amy Solorzano [facility], [employer] SUPERVISOR-C Status: REG ER Study: Acute Abdomen Inc Chest Date of Exam: 11/25/24 Exam# [id number] Ordering Dr: Drew Hinson MD EXAM: XR Abdomen, 2 Views and XR Chest, 1 View CLINICAL INDICATION: PAIN TECHNIQUE: Frontal view of the chest, frontal view of the abdomen/pelvis and upright or decubitus view of the abdomen. COMPARISON: No relevant prior studies available. FINDINGS: LUNGS AND PLEURAL SPACES: Unremarkable. No consolidation. No pneumothorax. HEART: Unremarkable. No cardiomegaly. MEDIASTINUM: Unremarkable. Normal mediastinal contour. INTRAPERITONEAL SPACE: No free air. GASTROINTESTINAL TRACT: Fecal retention in the colon consistent with constipation. No dilation. BONES/JOINTS: Unremarkable. No acute fracture. RAD/Acute Abdomen Inc Chest IMPRESSION: Fecal retention in the colon consistent with constipation. Reading Location: [facility] CC: [facility] SH[employer]TERS SUPERVISORPanC Amy Solorzano; Dr. Drew Hinson MD Hearing Aid Assistant: Signed Normal [facility] Amorphous sediment detection in urine sediment by light microscopyOrdered By: Drew Hinson on 11-25-2024 Amorphous sediment LM Ql (Urine sed) 2+ URATE [facility] Anion gap in Serum or Plasma Ordered By: Drew Hinson on 11-25-2024 Anion gap [Moles/Vol] 17 mmol/L High 5-15 [facility] Automated lymphocyte count a s percentage of total leukocytesOrdered By: Drew Hinson on 11-25-2024 Lymphocytes/100 WBC Auto (Unsp spec) 11.4 % Low 19-41 [facility] BUN/creatinine ratioOrdered By: Drew Hinson on 11-25-2024 Urea nitrogen/Creatinine [Mass ratio] 15.9 mg/mg 04-30 [facility] Basic Metabolic Profile (BMP )on 11-25-2024 BUN/CRE 15.9 RATIO Normal 04-30 [facility] Comment on above: Performed By: #### L 700.6800, L100.0100, L500.2500 #### [facility] [address] [place], [address] Calcium [Mass/Vol] 9.6 mg/dL Normal 7.6-11.0 [facility] Comment on above: Performed By: #### L 700.6800, L100.0100, L500.2500 #### [facility] [address] [place], [address] Chloride [Moles/Vol] 97 mmol/L Low 98-108 [facility] Comment on above: Performed By: #### L 700.6800, L100.0100, L500.2500 #### [facility] [address] [place], [address] CO2 [Moles/Vol] 21.3 mmol/L Normal 21.0-32.0 [facility] Comment on above: Performed By: #### L 700.6800, L100.0100, L500.2500 #### [facility] [address] [place], [address] Creatinine [Mass/Vol] 1.20 mg/dL Normal 0.70-1.20 [facility] Comment on above: Performed By: #### L 700.6800, L100.0100, L500.2500 #### [facility] [address] [place], [address] ECRCL 86.69 ml/min Normal 50-250 [facility] Comment on above: Performed By: #### L 700.6800, L100.0100, L500.2500 #### [facility] [address] [place], [address] GAP 17 High 5-15 [facility] Comment on above: Performed By: #### L 700.6800, L100.0100, L500.2500 #### [facility] [address] [place], [address] GFR/1.73 sq M.predicted among non-blacks MDRD (S/P/Bld) [Vol rate/Area] 62 mL/min/{1.73_m2} Normal >60 [facility] Comment on above: Result Comment: mL/m in/1.73m2 CKD-EPI Creatinine Equation (2020) Performed By: #### L 700.6800, L100.0100, L500.2500 #### [facility] [address] [place], [address] Glucose [Mass/Vol] 203 mg/dL High 70-99 [facility] Comment on above: Performed By: #### L 700.6800, L100.0100, L500.2500 #### [facility] [address] [place], [address] Potassium [Moles/Vol] 4.0 mmol/L Normal 3.3-5.1 [facility] Comment on above: Performed By: #### L 700.6800, L100.0100, L500.2500 #### [facility] [address] [place], [address] Sodium [Moles/Vol] 135 mmol/L Normal 133-145 [facility] Comment on above: Performed By: #### L 700.6800, L100.0100, L500.2500 #### [facility] [address] [place], [address] Urea nitrogen [Mass/Vol] 19 mg/dL Normal 4-19 [facility] Comment on above: Performed By: #### L 700.6800, L100.0100, L500.2500 #### [facility] [address] [place], [address] Basophil percentageOrdered B y: Drew Hinson on 11-25-2024 Basophils/100 WBC (Bld) 0.3 % 0-1 [facility] Bedside Glucoseon 11-25-2024 FINGERSTICK GLU 139 mg/dL High 74-106 [facility] Comment on above: Result Comment: BULL [place]AYOA OF PATIENT CARE PER NURSING PROTOCOL Performed By: #### L 500.3400 #### [facility] [address] [place], [address] Bilirubin Test strip Ql (U)O rdered By: Drew Hinson on 11-25-2024 Bilirubin Ql (U) 1 mg/dL High Negative [facility] Comment on above: COLOR OF URINE MAY A FFECT DIPSTICK RESULTS. Blood cultureOrdered By: Dwight Hinson on 11-25-2024 Bacteria identified Cx Nom (Bld) No growth in [address] [facility] Bacteria identified Cx Nom (Bld) No growth in [address] [facility] CBC W/Diff, Automatedon 11-09 PLT EST A Normal ADEQ [facility] Comment on above: Performed By: #### L 700.6800, L100.0100, L500.2500 #### [facility] [address] [place], [address] Carbon dioxide, total [Moles /volume] in Central venous bloodOrdered By: Drew Sravan on 11-25-2024 CO2 [Moles/Vol] 21.3 mmol/L 21.0-32.0 [facility] Chloride assayOrdered By: Katia Hinson on 11-25-2024 Chloride [Moles/Vol] 97 mmol/L Low 98-108 [facility] Consultation - Surgicalon Consultation - Surgical [facility] Medical Records Department [address] [place] [address] Consultation - Surgical 11/25/242050 MR#: [id number] Acct: [id number] Name: GHISLAINE GIVENS Rep #: [id number] : 1990 34 From: Annalise Welch MD PCP: BROOKLYN Warren, [employer] SUPERVISOR-C Status:ADM IN Location: [place] [address]-1 Assessment Plan Assessment/Plan (1) Fecal impaction: (2) Acute proctitis: PLAN: Plan Discussed with patient would recommend additional enema to help soften the bowel of stool in the rectum. Along with additional ones after that. Continue IV Zosyn Discussed with patient plan to DC with laxatives. Annalise Welch M.D. Pager: [phone] [facility] [address] [place] [address], [facility], [address] [place] [address] Office: [phone] HPI Consult Data Date of Consult: 11/26/24 HPI Narrative Reason for Consultation: Fecal impaction, acute proctitis HPI Narrative: GHISLAINE GIVENS, is a 34 F who presents to the ER due to constipation. Patient has had issues with constipation for years. Patient states that she did take her laxative for constipation 3 days prior to coming in however she was only having diarrhea and felt that there were some harder stool she was unable to get out. Also complained of some nausea and vomiting. CT abdomen pelvis showed fecal impaction with wall thickening of the distal colon and rectum suggesting proctitis/colitis. Patient white blood count was 27 patient was started on Zosyn IV. Patient did have an enema in the ER and did have some results with it. [facility] Medical History (Updated 11/25/24 @ 15:05 by Alejandrina Mayorga) GERD (gastroesophageal reflux disease) Wears glasses History of MRSA infection Borderline personality disorder Alcohol use Insulin dependent diabetes mellitus Dietary restriction Heartburn Smoker Shortness of breath on exertion Leg cramps Type 2 diabetes mellitus with peripheral neuropathy Neuropathy, diabetic Elevated serum creatinine Failure of outpatient treatment Nausea and vomiting Diabetes mellitus with diabetic polyneuropathy Type 2 diabetes mellitus with foot ulcer Anxiety Depression Constipation Asthma Diabetes Home Medications ???Medication ???Instructions ???Recorded ???Last Taken ???Type insulin glargine 100 unit/mL (3 20 unit subcut BID diabetes 11/25/24 History mL) subcutaneous pen (Lantus Solostar U-100 Insulin) trazodone 300 mg tablet 200 mg PO QHS PRN insomnia 4 Unknown History albuterol sulfate 90 mcg/actuation 2 puff inhalation Q4H PRN Unknown History aerosol inhaler shortness of breath or wheezing dulaglutide 4.5 mg/0.5 mL 4.5 mg subcut SA 11/25/24 11/18/24 History subcutaneous pen injector (Trulicity) Allergy/AdvReac Type Severity Reaction Status Date / Time No Known Allergies Allergy Verified 11/25/24 08:58 Family History Other Bleeding disorder Cancer Diabetes Hypertension Surgical History Hx of foot surgery Hx of foot surgery Social History Smoking Status: Current every day smoker tobacco type: cigarettes alcohol intake: never substance use type: does not use what type of physical activity do you participate in: none ROS Constitutional Constitutional: Denies fever(s) Eyes Eyes: Reports blurry vision ENT HEENT: Denies dysphagia Cardiovascular Cardiovascular: Denies chest pain Respiratory/Chest Respiratory/Chest: Denies cough Gastrointestinal Gastrointestinal: Reports constipation, diarrhea, nausea and vomiting; Denies abdominal pain or hematochezia Genitourinary Genitourinary: Denies dysuria Musculoskeletal Musculoskeletal: Denies joint swelling Integumentary Integumentary: Denies jaundice Neurologic Neurologic: Denies focal weakness Hematologic/Lymphatic Hematologic/Lymphatic: Denies easy bleeding Physical Exam Const alert, oriented x3 and no apparent distress HEENT normocephalic and head/scalp atraumatic Resp normal respiratory effort Cardio regular rate GI soft to palpation, non-tender and non-distended GI Narrative: DEMETRICE hard stool with tip finger, no gross blood Palpation: Negative for guarding Extremity no clubbing, cyanosis or edema Neuro CN's II-XII intact bilaterally Psych mental status grossly normal Lab / Micro Data 11/26/24 04:24 11/26/24 04:24 Labs: Laboratory Results - last 24 hr 11/25/24 09:40: WBC 27.0 H, RBC 5.21, Hgb 14.1, Hct 42.3, MCV 81.2, MCH 27.1, MCHC 33.3, RDW Std Deviation 41.1, RDW Coeff of John 14.2, Plt Count 400, MPV 9.4, Immature Gran % (Auto) 0.700, Neut % (Auto) 79.5 H, Lymph % (Auto) 11.4 L, Bacon (more content not included)... Normal [facility] Emergency Department Summary on 11-25-2024 Emergency Department Summary [facility] Medical Records Department [address] [place] [address] Emergency Department Summary 11/25/24 MR#: [id number] Acct: [id number] Name: GHISLAINE GIVENS Rep #: [id number] : 1990 34 From: Drew Hinson MD PCP: Amy Solorzano [facility], [employer] SUPERVISOR-C Status:REG ER Location: ED HPI HPI - GI History of Present Illness Chief Complaint: Constipation Narrative Narrative: 34-year-old female past medical history of diabetes states that she gets constipation frequently for years presents with abdominal pain and cramping as well as constipation that she has had for the last few days. She relates history that 3 days prior to her taking a laxative, she was having problems with not having a bowel movement. It was , 2 days ago when she took 4 Ex-Lax in the morning, and then that evening began having abdominal cramping. She states that she still feels like there is stool stuck but she is having multiple episodes of diarrhea and watery stool. She states that when she gets cramping, it still feels like she may have a fecal impaction. She is experienced nausea and vomiting over the last 24 hours multiple times but no hematemesis. Currently, she is only dry heaving. She did not take her insulin today because she took her blood sugar and it was only 190. Additionally, she has not been able to eat today because of the dry heaving. Her cramping in the abdomen is intermittent. She denies any previous abdominal surgeries, no reason to be obstructed. While she thinks she may have IBS-see, she has been unable to see gastroenterology to confirm this diagnosis. No exacerbating or alleviating factors. [facility] Medical History Wears glasses History of MRSA infection Borderline personality disorder Alcohol use Insulin dependent diabetes mellitus Dietary restriction Heartburn Smoker Shortness of breath on exertion Leg cramps Type 2 diabetes mellitus with peripheral neuropathy Neuropathy, diabetic Elevated serum creatinine Failure of outpatient treatment Nausea and vomiting Diabetes mellitus with diabetic polyneuropathy Type 2 diabetes mellitus with foot ulcer Anxiety Depression Constipation Asthma Diabetes Home Medications ???Medication ???Instructions ???Recorded ???Last Taken ???Type insulin glargine 100 unit/mL (3 20 unit subcut BID diabetes 11/25/24 History mL) subcutaneous pen (Lantus Solostar U-100 Insulin) trazodone 300 mg tablet 200 mg PO QHS PRN insomnia 4 Unknown History albuterol sulfate 90 mcg/actuation 2 puff inhalation Q4H PRN Unknown History aerosol inhaler shortness of breath or wheezing dulaglutide 4.5 mg/0.5 mL 4.5 mg subcut SA 11/25/24 11/18/24 History subcutaneous pen injector (Trulicity) Allergy/AdvReac Type Severity Reaction Status Date / Time No Known Allergies Allergy Verified 11/25/24 08:58 Family History Other Bleeding disorder Cancer Diabetes Hypertension Surgical History Hx of foot surgery Hx of foot surgery Social History Smoking Status: Current every day smoker tobacco type: cigarettes alcohol intake: never substance use type: does not use what type of physical activity do you participate in: none ROS ROS ED ROS Narrative Review of systems positive for diffuse, crampy abdominal pain, constipation with no bowel movement for the last 5 to 6 days although she is having diarrhea from taking a laxative. Positive nausea and vomiting, and dry heaving. No fevers or chills. No exacerbating or alleviating factors. EXAM Physical Exam Narrative Exam Narrative: Afebrile. Vital signs noted. Nontoxic-appearing. Cardiovascular examination reveals mild tachycardia. Lungs are clear to auscultation bilaterally. The abdomen is soft, nontender, without guarding or rebound. Positive bowel sounds. Neurological examination is nonfocal and nonlateralizing. Patient was previously tearful prior to examination. Const Vital Signs: 11/25/24 08:48 11/25/24 09:50 11/25/24 10:00 Temperature 96.8 F L 98.0 F 97.9 F Temperature Source Temporal Oral Temporal Pulse Rate 112 H 103 H 94 Respiratory Rate 20 H 19 H 17 Blood Pressure 121/91 H 130/91 H 122/91 H Blood Pressure Mean 101 104 101 Pulse Ox 99 96 92 Oxygen Delivery Method Room Air Room Air Room Air 11/25/24 11:00 11/25/24 12:00 Temperature 97.6 F L Temperature Source Temporal Pulse Rate 85 91 Respiratory Rate 16 Blood Pressure 124/90 H 123/85 H Blood Pressure Mean 101 97 Pulse Ox 94 95 Oxygen Delivery Method Room Air MDM MDM MDM N (more content not included)... Normal [facility] Eosinophil percentageOrdered By: Drew Hinson on 11-25-2024 Eosinophils/100 WBC (Bld) 0.1 % 0-5 [facility] Erythrocyte distribution wid th ratioOrdered By: Drew Hinson on 11-25-2024 Erythrocyte distribution width (RBC) [Ratio] 14.2 % 11.6-14.6 [facility] Erythrocyte distribution wid th standard deviationOrdered By: Drew Hinson on 11-25-2024 Erythrocyte distribution width (RBC) [Ratio] 41.1 fl 35.1-43.9 [facility] Glomerular filtration rate ( GFR) estimation/1.73 sq m using serum, plasma, or whole bOrdered By: Drew Hinson on 11-25-2024 GFR/1.73 sq M.predicted among non-blacks MDRD (S/P/Bld) [Vol rate/Area] 62 mL/min/{1.73_m2} >60 [facility] Comment on above: mL/min/1.73m2 CKD-EP I Creatinine Equation (2020) H AND P Exam - [facility] 11-25-2024 H&P Exam - Hospitalist [facility] Medical Records Department [address] [place] [address] H P Exam - Hospitalist 11/25/24 1324 MR#: [id number] Acct: [id number] Name: GHISLAINE GIVENS Rep #: [id number] : 1990 34 From: Brenda Rao MD PCP: BROOKLYN Warren, [employer] SUPERVISOR-C Status:ADM IN Location: [facility] NA150-6 HPI - General General Date of Admission: 11/25/24 Date of Service: 11/25/24 Chief Complaint: abdominal pain, constipation HPI Narrative GHISLAINE GIVENS, is a 34 F with a PMH as outlined including diabetes who presents via the ED on 11/25/2024 with a complaint of constipation. She has struggled with constipation over the years and takes laxatives. She says 3 days prior to admission, she took her laxative due to constipation. She subsequently started having diarrhea. She also had cramping and was worried that she may have fecal impaction. SHe also complained of nausea and vomiting. She had no other complaints. Review of symptoms otherwise negative. Vitals in the ED were blood pressure of 123/85, pulse rate of 91 and respiratory rate of 16. Pulse ox was 95% on room air. CBC showed hemoglobin of 14.1 with WBC of 27 and platelets of 400. Chemistry was largely unremarkable. Lactic acid was 1.5. Urinalysis showed 0 bacteria and negative leukocyte esterase. She initially had an abdominal series x-ray which showed fecal retention in the colon consistent with constipation. She then had CT of the abdomen and pelvis which showed fecal impaction with apparent wall thickening of the distal colon and rectum suggesting proctitis and colitis as well as hepatomegaly with fatty infiltration. She has been admitted to be managed for proctocolitis, likely stercoral colitis in the setting of severe constipation with likely overflow diarrhea. [facility] Medical History (Updated 11/25/24 @ 15:05 by Alejandrina Mayorga) GERD (gastroesophageal reflux disease) Wears glasses History of MRSA infection Borderline personality disorder Alcohol use Insulin dependent diabetes mellitus Dietary restriction Heartburn Smoker Shortness of breath on exertion Leg cramps Type 2 diabetes mellitus with peripheral neuropathy Neuropathy, diabetic Elevated serum creatinine Failure of outpatient treatment Nausea and vomiting Diabetes mellitus with diabetic polyneuropathy Type 2 diabetes mellitus with foot ulcer Anxiety Depression Constipation Asthma Diabetes Home Medications ???Medication ???Instructions ???Recorded ???Last Taken ???Type insulin glargine 100 unit/mL (3 20 unit subcut BID diabetes 11/25/24 History mL) subcutaneous pen (Lantus Solostar U-100 Insulin) trazodone 300 mg tablet 200 mg PO QHS PRN insomnia 4 Unknown History albuterol sulfate 90 mcg/actuation 2 puff inhalation Q4H PRN Unknown History aerosol inhaler shortness of breath or wheezing dulaglutide 4.5 mg/0.5 mL 4.5 mg subcut SA 11/25/24 11/18/24 History subcutaneous pen injector (Trulicity) Allergy/AdvReac Type Severity Reaction Status Date / Time No Known Allergies Allergy Verified 11/25/24 08:58 Family History Other Bleeding disorder Cancer Diabetes Hypertension Surgical History Hx of foot surgery Hx of foot surgery Social History Smoking Status: Current every day smoker tobacco type: cigarettes alcohol intake: never substance use type: does not use what type of physical activity do you participate in: none ROS Constitutional Constitutional: Reports fatigue, malaise and weakness; Denies anorexia, chills or fever(s) Eyes Eyes: Denies change in vision ENT HEENT: Denies dysphagia, headache(s) or sore throat Cardiovascular Cardiovascular: Denies chest pain, dyspnea on exertion, edema, lightheadedness, orthopnea or palpitations Respiratory/Chest Respiratory/Chest: Denies cough, dyspnea, productive cough, shortness of breath at rest or shortness of breath with exertion Gastrointestinal Gastrointestinal: Reports abdominal pain, constipation, diarrhea, nausea and vomiting; Denies dyspepsia, hematemesis, hematochezia, loose stools or melena Genitourinary Genitourinary: Denies burning urination or dysuria Musculoskeletal Musculoskeletal: Denies arthralgias Neurologic Neurologic: Denies confusion, dizziness, focal weakness or headache(s) Psychiatric Psychiatric: Denies anxiety or depression Vital Signs Vital Signs Vital Signs: 11/25/24 08:48 11/25/24 09:50 11/25/24 10:00 Temperature 96.8 F L 98.0 F 97.9 F Temperature Source Temporal Oral Temporal Pulse Rate 112 H 103 H 94 Respiratory Rate 20 H 19 H 17 Blood Pressure 121/91 H 130/91 H 122/91 H Blood Pressure Hina (more content not included)... Normal [facility] Hematocrit Auto (Bld) [Volum e fraction]Ordered By: Drew Hinson on 11-25-2024 Hematocrit (Bld) [Volume fraction] 42.3 % 37-47 [facility] Hemoglobin measurementOrdere d By: Drew Hinson on 11-25-2024 Hemoglobin (Bld) [Mass/Vol] 14.1 g/dL 12.0-15.0 [facility] Hyaline casts LM.LPF (Urine sed) [#/Area]Ordered By: Drew Hinson on 11-25-2024 Hyaline casts (Urine sed) [#/Area] 0 /[LPF] 0-5 [facility] Immature granulocytes/100 WB C Auto (Bld)Ordered By: Drew Hinson on 11-25-2024 Immature granulocytes/100 WBC (Bld) 0.700 % 0.0-0.9 [facility] Comment on above: IG% - Immature Granu locytes (promyelocytes, myelocytes and metamyelocytes) > 1% indicates that a LEFT SHIFT is Present. Ketones Test strip Ql (U)Ord ered By: Drew Hinson on 11-25-2024 Ketones Ql (U) 5 mg/dl High Negative [facility] Lactic Acidon 11-25-2024 Lactate [Moles/Vol] 1.5 mmol/L Normal 0.0-2.0 [facility] Comment on above: Order Comment: Y Performed By: #### M 200.1000, L503.6005 #### [facility] [address] [place], [address] Lactic acid measurementOrder ed By: Drew Hinson on 11-25-2024 Lactate [Moles/Vol] 1.5 mmol/L 0.0-2.0 [facility] MCV (mean corpuscular volume ) determinationOrdered By: Drew Hinson on 11-25-2024 MCV (RBC) [Entitic vol] 81.2 fL 81-99 [facility] Mean corpuscular hemoglobin (MCH) determinationOrdered By: Drew Hinson on 11-25-2024 MCH (RBC) [Entitic mass] 27.1 pg 27.0-32.0 [facility] Mean corpuscular hemoglobin concentration (MCHC) determinationOrdered By: Drew Hinson on 11-25-2024 MCHC (RBC) [Mass/Vol] 33.3 g/dL 32-36 [facility] Mean platelet volume determi nationOrdered By: Drew Hinson on 11-25-2024 Platelet mean volume (Bld) [Entitic vol] 9.4 fL 6.2-12.0 [facility] Microscopic analysis of urin e for red blood cells (RBC)Ordered By: Drew Hinson on 11-25-2024 Microscopic analysis of urine for red blood cells (RBC) 0-5 SEEN /hpf 0-5 [facility] Monocyte percentageOrdered B y: Drew Hinson on 11-25-2024 Monocytes/100 WBC (Bld) 8.0 % 0-10 [facility] Mucus LM Ql (Urine sed)Order ed By: Drew Hinson on 11-25-2024 Mucus Ql (Urine sed) 0 SEEN /hpf [facility] Neutrophil percentageOrdered By: Drew Hinson on 11-25-2024 Neutrophils/100 WBC (Bld) 79.5 % High 47-70 [facility] Nitrite Test strip Ql (U)Ord ered By: Drew Hinson on 11-25-2024 Nitrite Ql (U) Negative Negative [facility] Nucleated red blood cell per centageOrdered By: Drew Hinson on 11-25-2024 Nucleated RBC/100 WBC (Bld) [Ratio] 0 % 0-5 [facility] Platelet countOrdered By: Katia Hinson on 11-25-2024 Platelets (Bld) [#/Vol] 400 10*3/uL 150-450 [facility] Platelet estimateOrdered By: Drew Hinson on 11-25-2024 Platelets LM Ql (Bld) A ADEQ [facility] Potassium measurement (mass/ volume)Ordered By: Drew Hinson on 11-25-2024 Potassium (Unsp spec) [Mass/Vol] 4.0 mmol/L 3.3-5.1 [facility] ,Serum,hCG Quali.on 11-25-2024 HCG, SERUM QUAL Negative Normal [facility] Comment on above: Performed By: #### L 700.6800, L100.0100, L500.2500 #### [facility] [address] [place] [address], [address] Protein Test strip Ql (U)Ord ered By: Drew Hinson on 11-25-2024 Protein Ql (U) 30 mg/dl High Negative [facility] RBC Auto (Bld) [#/Vol]Ordere d By: Drew Hinson on 11-25-2024 RBC (Bld) [#/Vol] 5.21 10*6/uL 4.2-5.4 [facility] Serum beta-hCG test, qualita tiveOrdered By: Drew Hinson on 11-25-2024 Beta HCG ( test) Ql Negative [facility] Serum creatinine measurement (mass/volume)Ordered By: Drew Hinson on 11-25-2024 Creatinine [Mass/Vol] 1.20 mg/dL 0.70-1.20 [facility] Serum glucose measurement (m ass/volume)Ordered By: Drew Hinson on 11-25-2024 Glucose [Mass/Vol] 203 mg/dL High 70-99 [facility] Serum or plasma calcium hussein urement (mass/volume)Ordered By: Drew Hinson on 11-25-2024 Calcium [Mass/Vol] 9.6 mg/dL 7.6-11.0 [facility] Serum or plasma urea nitroge n measurement (mass/volume)Ordered By: Drew Hinson on 11-25-2024 Urea nitrogen [Mass/Vol] 19 mg/dL 4-19 [facility] Sodium levelOrdered By: Drew Hinson on 11-25-2024 Sodium [Moles/Vol] 135 mmol/L 133-145 [facility] Squamous epithelial cells de tection in urine sediment by light microscopyOrdered By: Drew Hinson on 11-25-2024 Epithelial cells.squamous LM Ql (Urine sed) 0-5 SEEN /hpf 5-10 [facility] Urinalysis, Completeon 11-25 CAST,HYALINE 0-5 SEEN Normal 0-5 [facility] Comment on above: Order Comment: CLEAN CATCH Performed By: #### L 500.2500, L100.0100 #### [facility] [address] [place], [address] AMORPHOUS 2+ URATE Normal [facility] Comment on above: Order Comment: CLEAN CATCH Performed By: #### L 500.2500, L100.0100 #### [facility] [address] [place], [address] EPI,SQUAMOUS 0-5 SEEN Normal 5-10 [facility] Comment on above: Order Comment: CLEAN CATCH Performed By: #### L 500.2500, L100.0100 #### [facility] [address] [place], [address] RBC 0-5 SEEN Normal 0-5 [facility] Comment on above: Order Comment: CLEAN CATCH Performed By: #### L 500.2500, L100.0100 #### [facility] [address] [place], [address] WBC 0-5 SEEN Normal 0-5 [facility] Comment on above: Order Comment: CLEAN CATCH Performed By: #### L 500.2500, L100.0100 #### [facility] [address] [place], [address] BACTERIA 0 SEEN Normal None Seen [facility] Comment on above: Order Comment: CLEAN CATCH Performed By: #### L 500.2500, L100.0100 #### [facility] [address] [place], [address] Mucus Ql (Urine sed) 0 SEEN Normal [facility] Comment on above: Order Comment: CLEAN CATCH Performed By: #### L 500.2500, L100.0100 #### [facility] [address] [place], [address] Urine clarityOrdered By: Dwight Hinson on 11-25-2024 Clarity (U) Cloudy Clear [facility] Urine color determinationOrd ered By: Drew Hinson on 11-25-2024 Color (U) Yellow Yellow [facility] Urine glucose detectionOrder ed By: Drew Hinson on 11-25-2024 Glucose Ql (U) Normal mg/dl Normal [facility] Urine leukocyte esterase det ection by dipstickOrdered By: Drew Hinson on 11-25-2024 Leukocyte esterase Test strip Ql (U) Negative Negative [facility] Urine pHOrdered By: Drew castellanos on 11-25-2024 pH (U) 6.0 [pH] 5.0 - 8.0 [facility] Urine sediment bacteria coun t by microscopy (number/high power field)Ordered By: Drew Hinson on 11-25-2024 Bacteria LM.HPF (Urine sed) [#/Area] 0 /[HPF] None Seen [facility] Urine specific gravity measu rementOrdered By: Drew Hinson on 11-25-2024 Specific gravity (U) [Rel density] 1.025 1.002-1.030 [facility] Urine urobilinogen measureme ntOrdered By: Drew Hinson on 11-25-2024 Urobilinogen Ql (U) 1 mg/dl High Normal [facility] White blood cell (WBC) count Ordered By: Drew Hinson on 11-25-2024 WBC (Bld) [#/Vol] 27.0 10*3/uL High 4.4-11.0 [facility] White blood cell countOrdere d By: Drew Hinson on 11-25-2024 White blood cell count 0-5 SEEN /hpf 0-5 [facility] Arterial study reportOrdered By: Tony Dwyer on 10-25-2024 Noninvasive arteriosclerosis study report [facility] Cardiovascular Services [address] [place] [address] Lower Ext Art Exam w/o Exercis 10/25/24 0847 MR#: [id number] Acct: [id number] Name: GHISLAINE GIVENS Rep #:[id number] : 1990 34 From: Tony Dwyer MD Attending Dr: Dr. Abdirizak Forrest, DPM Status: REG CLI Ordering Dr: Abdirizak Forrest DPPrisca Date: 10/25/24 Location: [facility] Sex: F C Admitted: Reason For Study Reason For Study: Carotid stenosis Procedure A bilateral lower extremity continuous wave Doppler with analog waveform analysis,segmental pressures,and ankle brachial indexes without exercise. Left Segmental Pressures Left brachial= 137mmHg. Left posterior tibial artery = 172mmHg. Left dorsalis pedis artery = 153mmHg. Left digit = 156 mmHg. The left dorsalis pedis waveforms are triphasic. The left posterior tibialartery waveforms are triphasic. Right Segmental Pressures Right brachial= 134mmHg. Right posterior tibial artery = 144mmHg. Right dorsalispedis artery = 156mmHg. The right dorsalis pedis waveforms are triphasic. The right posterior tibial artery waveforms are triphasic. Indices The right ankle brachial index by the dorsalis pedis is 1.14. The right ankle brachial index by the posterior tibial artery is 1.05. The left ankle brachial index by the dorsalis pedis is 1.12. Theleft ankle brachial index by the posterior tibial artery is 1.26. The left digital-brachial index is 1.14. VL/Lower Ext Art Exam w/o Exercis Interpretation Summary Triphasic Doppler waveforms are noted at ankle level bilaterally. Pulse-volume recordings appear satisfactory at all levels bilaterally. Resting ankle-brachial indices are normal bilaterally. The left digital-brachial index is normal. Arterial status at digital level on the right was not assessed due to a partial foot amputation. There is no evidence of significant arterial occlusive disease in the lower extremities bilaterally. Ordering Physician: Abdirizak Forrest Referring Physician: Amy Solorzano Performed By: Saima De La Torre T 10/25/242211 Date _ Tony Dwyer MD CC: DPM Dr. Abdirizak Forrest; [facility] [employer]PER[employer] Amy Solorzano ~ Date Dictated: 10/25/24846 Date Transcribed: 10/25/242211 Hearing Aid Assistant: Signed [facility] Other Phone: Lower Ext Art Exam w/o Exerc rudy 10-25-2024 Lower Ext Art Exam w/o Exercis [facility] Cardiovascular Services [address] [place] [address] Lower Ext Art Exam w/o Exercis 10/25/2447 MR#: [id number] Acct: [id number] Name: GHISLAINE GIVENS Rep #: [id number] : 1990 34 From: Tony Dwyer MD Attending Dr: Dr. Abdirizak Forrest DPM Status: RE G CLI Ordering Dr: Abdirizak Forrest DPM Date: 10/25/24 Location: [facility] Sex: F C Admitted: Reason For Study Reason For Study: Carotid stenosis Procedure A bilateral lower extremity continuous wave Doppler with analog waveform analysis,segmental pressures,and ankle brachial indexes without exercise. Left Segmental Pressures Left brachial= 137mmHg. Left posterior tibial artery = 172mmHg. Left dorsalis pedis artery = 153mmHg. Left digit = 156 mmHg. The left dorsalis pedis waveforms are triphasic. The left posterior tibial artery waveforms are triphasic. Right Segmental Pressures Right brachial= 134mmHg. Right posterior tibial artery = 144mmHg. Right dorsalis pedis artery = 156mmHg. The right dorsalis pedis waveforms are triphasic. The right posterior tibial artery waveforms are triphasic. Indices The right ankle brachial index by the dorsalis pedis is 1.14. The right ankle brachial index by the posterior tibial artery is 1.05. The left ankle brachial index by the dorsalis pedis is 1.12. The left ankle brachial index by the posterior tibial artery is 1.26. The left digital-brachial index is 1.14. VL/Lower Ext Art Exam w/o Exercis Interpretation Summary Triphasic Doppler waveforms are noted at ankle level bilaterally. Pulse-volume recordings appear satisfactory at all levels bilaterally. Resting ankle-brachial indices are normal bilaterally. The left digital-brachial index is normal. Arterial status at digital level on the right was not assessed due to a partial foot amputation. There is no evidence of significant arterial occlusive disease in the lower extremities bilaterally. Ordering Physician: Abdirizak Forrest Referring Physician: Amy Solorzano Performed By: Saima De La Torre RVT 10/25/242211 Date Tony Dwyer MD CC: DPPrisca Forrest; [facility] [employer] SU[employer] Amy Solorzano Date Dictated: 10/25/24 0847 Date Transcribed: 10/25/242211 Hearing Aid Assistant: Signed Normal [facility] Venous Duplex US - Tayo Extre [facility] 10-25-2024 Venous Duplex US - Tayo Extrem [facility] Cardiovascular Services [address] [place] [address] Venous Duplex US - Tayo Extrem 10/25/24 0806 MR#: [id number] Acct: [id number] Name: GHISLAINE GIVENS Rep #: [id number] : 1990 34 From: Tony Dwyer MD Attending Dr: Dr. Abdirizak Forrest, DPM Status: RE G CLI Ordering Dr: Abdirizak Forrest DPM Date: 10/25/24 Location: [facility] Sex: F C Admitted: Reason For Study Reason For Study: Pain in legs RIGHT LEFT CFV is compressible, spontaneous, phasic, competent CFV is compressible, spontaneous, phasic, competent, and demonstrates normal augmentation. and demonstrates normal augmentation. FV is compressible, spontaneous, phasic, competent FV is compressible, spontaneous, phasic, competent and demonstrates normal augmentation. and demonstrates normal augmentation. POP V is compressible, spontaneous, phasic, competent POP V is compressible, spontaneous, phasic, competent and demonstrates normal augmentation. and demonstrates normal augmentation. T/P Trunk is compressible. T/P Trunk is compressible. PTV is compressible. PTV is compressible. RT PerV is compressible. LT PerV is compressible. SFJ is competent and measures 0.58 cm. SFJ is INCOMPETENT and measures 0.70 cm. GSV proximal thigh measures 0.49 x 0.48 cm. GSV proximal thigh measures 0.63 x 0.59 cm. GSV above knee is competent. GSV at knee measures 0.65 x 0.65 cm. GSV at knee measures 0.71 x 0.71 cm. GSV INCOMPETENT throughout for greater than 0.5 GSV below knee is INCOMPETENT for greater than 0.5 seconds. seconds. SSV mid calf is competent and measures 0.21 x 0.23 INCOMPETENT chairman emeritus noted 8 cm above medial cm. maleolus. ASV proximal calf is INCOMPETENT for greater than 0.5 seconds and measures 0.34 x 0.30 cm. SSV mid calf is competent and measures 0.35 x 0.35 cm. Procedure This is a venous duplex using B-mode, color flow and spectral Doppler. Exam performed in department. Patient was scanned in reverse Trendelenburg position during reflux assessment. VL/Venous Duplex US - Tayo Extrem Interpretation Summary Deep veins of the lower extremities are bilaterally patent and compressible segmentally. There is no evidence of deep vein thrombosis on either side. Valvular competence appears intact within the proximal deep venous systems bilaterally. The great saphenous veins appear bilaterally patent and compressible segmentally. The right sapheno- femoral junction is competent . The left sapheno-femoral junction is incompetent . The right great saphenous vein appears competent above the knee. The right great saphenous vein appears incompetent below the knee. The left great saphenous vein appears segmentally incompetent. Small saphenous veins are patent and competent bilaterally. The accessory saphenous vein in the right proximal calf is incompetent. An incompetent chairman emeritus vein is noted in the right calf, located 8 centimeters proximal to the right medial malleolus. Ordering Physician: Abdirizak Forrest Referring Physician: Amy Solorzano Performed By: Saima De La Torre, RVTed 10/25/242200 Date Tony Dwyer MD CC: DPM Dr. Abdirizak Forrest; [facility] [employer] SUPERVISOR-C Amy Solorzano Date Dictated: 10/25/24805 Date Transcribed: 10/25/242200 Hearing Aid Assistant: Signed Normal [facility] Venous duplex ultrasound rep ortOrdered By: Tony Dwyer on 10-25-2024 US Vein [facility] [address] [place] [address] Venous Duplex US - Tayo Extrem 10/25/24805 MR#: [id number] Acct: [id number] Name: GHISLAINE GIVENS Rep #:[id number] 1990 34 From: Tony Dwyer MD Attending Dr: Dr. Abdirizak Forrest, DPM Status: REG CLI Ordering Dr: Abdirizak Forrest DPM Date: 10/25/24 Location: [facility]S Sex: F C Admitted: Reason For Study Reason For Study: Pain in legs RIGHT LEFT CFV is compressible, spontaneous, phasic, competent CFV is compressible, spontaneous, phasic, competent, and demonstrates normal augmentation. and demonstrates normal augmentation. FV is compressible, spontaneous, phasic, competent FV is compressible, spontaneous, phasic, competent and demonstrates normal augmentation. and demonstrates normal augmentation. POP V is compressible, spontaneous, phasic, competent POP V is compressible, spontaneous, phasic, competent and demonstrates normal augmentation. and demonstrates normal augmentation. T/P Trunk is compressible. T/P Trunk is compressible. PTV is compressible. PTV is compressible. RT PerV is compressible. LT PerV is compressible. SFJ is competent and measures 0.58 cm. SFJ is INCOMPETENT and measures 0.70 cm. GSV proximal thigh measures 0.49 x 0.48 cm. GSV proximal thigh measures 0.63 x 0.59 cm. GSV above knee is competent. GSV at knee measures 0.65 x 0.65 cm. GSV at knee measures 0.71 x 0.71 cm. GSV INCOMPETENT throughout for greater than 0.5 GSV below knee is INCOMPETENT for greater than 0.5 seconds. seconds. SSV mid calf is competent and measures 0.21 x 0.23 INCOMPETENT chairman emeritus noted 8 cm above medial cm. maleolus. ASV proximal calf is INCOMPETENT for greater than 0.5 seconds and measures 0.34 x 0.30 cm. SSV mid calf is competent and measures 0.35 x 0.35 cm. Procedure This is a venous duplex using B-mode, color flow and spectral Doppler. Exam performed in department. Patient was scanned in reverse Trendelenburg position during reflux assessment. VL/Venous Duplex US - Tayo Extrem Interpretation Summary Deep veins of the lower extremities are bilaterally patent and compressible segmentally. There is no evidence of deep vein thrombosis on either side. Valvular competence appears intact within the proximal deep venous systems bilaterally. The great saphenous veins appear bilaterally patent and compressible segmentally. The right sapheno-femoral junction is competent . The left sapheno-femoral junction is incompetent . The right great saphenous vein appears competent above the knee. The right great saphenous vein appears incompetent below the knee. Theleft great saphenous vein appears segmentally incompetent. Small saphenous veins are patent and competent bilaterally. The accessory saphenous vein in the right proximal calf is incompetent. An incompetent chairman emeritus vein is noted in the right calf, located 8 centimeters proximal to the right medial malleolus. Ordering Physician: Abdirizak Forrest Referring Physician: Amy Solorzano Performed By: Saima De La Torre RVT 10/25/242200 Date _ Tony Dwyer MD CC: DPPrisca Forrest; [facility] [employer] SUPERVISOR-[employer] Amy Solorzano ~ Date Dictated: 10/25/24805 Date Transcribed: 10/25/242200 Hearing Aid Assistant: Signed [facility] Other Phone: Absolute lymphocyte countOrd ered By: [facility] Amy Solorzano on 10-17-2024 Lymphocytes Auto (Unsp spec) [#/Vol] 3.16 10*3/uL 0.83-4.51 [facility] Absolute neutrophil countOrd ered By: [facility] Amy Solorzano on 10-17-2024 Neutrophils (Bld) [#/Vol] 6.6 10*3/uL 2.0-7.7 [facility] Albumin DL <= 20 mg/L (U) [M ass/Vol]Ordered By: [facility] Amy Solorzano on 10-17-2024 Urine Random Microalbumin < 12.0 mg/L NO RANGE EST. [facility] Anion gap in Serum or Plasma Ordered By: [facility] Amy Solorzano on 04-08-2025 Anion gap [Moles/Vol] 14 mmol/L 5-15 [facility] Automated lymphocyte count a s percentage of total leukocytesOrdered By: [facility] Amy Solorzano on 10-17-2024 Lymphocytes/100 WBC Auto (Unsp spec) 29.7 % 19- [facility] BUN/creatinine ratioOrdered By: [facility] Amy Solorzano on 10-17-2024 Urea nitrogen/Creatinine [Mass ratio] 14.4 mg/mg 10- [facility] Basophil percentageOrdered B y: [facility] Amy Solorzano on 10-17-2024 Basophils/100 WBC (Bld) 0.4 % 0-1 [facility] Bilirubin, totalOrdered By: [facility] Amy Solorzano on 10-17-2024 Bilirubin [Mass/Vol] 0.21 mg/dL 0.00-1.30 [facility] CBC W/Diff, Automatedon 04- Absolute Lymph 3.16 X10 3/uL Normal 0.83-4.51 [facility] Comment on above: Performed By: #### L 700.6800, L100.0100, L500.2500 #### [facility] [address] [place], [address] Absolute Neut 6.6 X10 3/uL Normal 2.0-7.7 [facility] Comment on above: Performed By: #### L 700.6800, L100.0100, L500.2500 #### [facility] [address] [place], [address] Basophils/100 WBC (Bld) 0.4 % Normal 0-1 [facility] Comment on above: Performed By: #### L 700.6800, L100.0100, L500.2500 #### [facility] [address] [place], [address] Eosinophils/100 WBC (Bld) 0.7 % Normal 0-5 [facility] Comment on above: Performed By: #### L 700.6800, L100.0100, L500.2500 #### [facility] [address] [place], [address] Erythrocyte distribution width (RBC) [Ratio] 14.1 % Normal 11.6-14.6 [facility] Comment on above: Performed By: #### L 700.6800, L100.0100, L500.2500 #### [facility] [address] [place], [address] Hematocrit (Bld) [Volume fraction] 39.5 % Normal 37-47 [facility] Comment on above: Performed By: #### L 700.6800, L100.0100, L500.2500 #### [facility] [address] [facility] [place], [address] Hemoglobin (Bld) [Mass/Vol] 12.8 g/dL Normal 12.0-15.0 [facility] Comment on above: Performed By: #### L 700.6800, L100.0100, L500.2500 #### [facility] [address] [place], [address] IG% 1.000 High 0.0-0.9 [facility] Comment on above: Result Comment: IG% - Immature Granulocytes (promyelocytes, myelocytes and metamyelocytes) > 1% indicates that a LEFT SHIFT is Present. Performed By: #### L 700.6800, L100.0100, L500.2500 #### [facility] [address] [place], [address] Lymphocytes/100 WBC (Bld) 29.7 % Normal 19-41 [facility] Comment on above: Performed By: #### L 700.6800, L100.0100, L500.2500 #### [facility] [address] [place], [address] MCH (RBC) [Entitic mass] 26.6 pg Low 27.0-32.0 [facility] Comment on above: Performed By: #### L 700.6800, L100.0100, L500.2500 #### [facility] [address] [place], [address] MCHC (RBC) [Mass/Vol] 32.4 g/dL Normal 32-36 [facility] Comment on above: Performed By: #### L 700.6800, L100.0100, L500.2500 #### [facility] [address] [place], [address] MCV (RBC) [Entitic vol] 82.1 fL Normal 81-99 [facility] Comment on above: Performed By: #### L 700.6800, L100.0100, L500.2500 #### [facility] [address] [place], [address] Monocytes/100 WBC (Bld) 6.0 % Normal 0-10 [facility] Comment on above: Performed By: #### L 700.6800, L100.0100, L500.2500 #### [facility] [address] [place], [address] Neutrophils/100 WBC (Bld) 62.2 % Normal 47-70 [facility] Comment on above: Performed By: #### L 700.6800, L100.0100, L500.2500 #### [facility] [address] [place], [address] Nucleated RBC (Bld) [#/Vol] 0 10*3/uL Normal 0-5 [facility] Comment on above: Performed By: #### L 700.6800, L100.0100, L500.2500 #### [facility] [address] [place], [address] Platelet mean volume (Bld) [Entitic vol] 9.7 fL Normal 6.2-12.0 [facility] Comment on above: Performed By: #### L 700.6800, L100.0100, L500.2500 #### [facility] [address] [place], [address] Platelets (Bld) [#/Vol] 332 10*3/uL Normal 150-450 [facility] Comment on above: Performed By: #### L 700.6800, L100.0100, L500.2500 #### [facility] [address] [place], [address] RBC (Bld) [#/Vol] 4.81 10*6/uL Normal 4.2-5.4 [facility] Comment on above: Performed By: #### L 700.6800, L100.0100, L500.2500 #### [facility] [address] [place], [address] RDW SD 41.9 fl Normal 35.1-43.9 [facility] Comment on above: Performed By: #### L 700.6800, L100.0100, L500.2500 #### [facility] [address] [place], [address] WBC (Bld) [#/Vol] 10.6 10*3/uL Normal 4.4-11.0 [facility] Comment on above: Performed By: #### L 700.6800, L100.0100, L500.2500 #### [facility] [address] [place], [address] Calculated very low density lipoprotein (VLDL) cholesterol measurementOrdered By: [facility] Amy Solorzaon on 10-17-2024 Calculated very low density lipoprotein (VLDL) cholesterol measurement 57 mg/dL High 5-40 [facility] VLDL Cholesterol 57 mg/dL [facility] 5-40 [facility] Carbon dioxide, total [Moles /volume] in Central venous bloodOrdered By: [facility] Amy Solorzano on 10-17-2024 CO2 [Moles/Vol] 21.8 mmol/L 21.0-32.0 [facility] Chloride assayOrdered By: [facility] Amy Solorzano on 10-17-2024 Chloride [Moles/Vol] 99 mmol/L 98-108 [facility] Comprehensive Metabolic Prof ilon 10-17-2024 Albumin [Mass/Vol] 3.7 g/dL Normal 3.5-5.0 [facility] Comment on above: Performed By: #### L 700.6800, L100.0100, L500.2500 #### [facility] [address] [place], [address] Albumin/Globulin [Mass ratio] 0.9 {ratio} Normal 0.9-2.4 [facility] Comment on above: Performed By: #### L 700.6800, L100.0100, L500.2500 #### [facility] [address] [place], [address] ALK PHOS 93 U/L Normal 35-104 [facility] Comment on above: Performed By: #### L 700.6800, L100.0100, L500.2500 #### [facility] [address] [place], [address] ALT [Catalytic activity/Vol] 12 U/L Normal <=34 [facility] Comment on above: Performed By: #### L 700.6800, L100.0100, L500.2500 #### [facility] [address] [place], [address] AST [Catalytic activity/Vol] 18 U/L Normal <=31 [facility] Comment on above: Performed By: #### L 700.6800, L100.0100, L500.2500 #### [facility] [address] [place], [address] Bilirubin [Mass/Vol] 0.21 mg/dL Normal 0.00-1.30 [facility] Comment on above: Performed By: #### L 700.6800, L100.0100, L500.2500 #### [facility] [address] [place], [address] BUN/CRE 14.4 RATIO Normal 10-20 [facility] Comment on above: Performed By: #### L 700.6800, L100.0100, L500.2500 #### [facility] [address] [place], [address] Calcium [Mass/Vol] 9.2 mg/dL Normal 7.6-11.0 [facility] Comment on above: Performed By: #### L 700.6800, L100.0100, L500.2500 #### [facility] [address] [place], [address] Chloride [Moles/Vol] 99 mmol/L Normal 98-108 [facility] Comment on above: Performed By: #### L 700.6800, L100.0100, L500.2500 #### [facility] [address] [place], [address] CO2 [Moles/Vol] 21.8 mmol/L Normal 21.0-32.0 [facility] Comment on above: Performed By: #### L 700.6800, L100.0100, L500.2500 #### [facility] [address] [place], [address] Creatinine [Mass/Vol] 0.84 mg/dL Normal 0.70-1.20 [facility] Comment on above: Performed By: #### L 700.6800, L100.0100, L500.2500 #### [facility] [address] [place], [address] GAP 14 Normal 5-15 [facility] Comment on above: Performed By: #### L 700.6800, L100.0100, L500.2500 #### [facility] [address] [place], [address] GFR/1.73 sq M.predicted among non-blacks MDRD (S/P/Bld) [Vol rate/Area] 95 mL/min/{1.73_m2} Normal >60 [facility] Comment on above: Result Comment: mL/m in/1.73m2 CKD-EPI Creatinine Equation (2020) Performed By: #### L 700.6800, L100.0100, L500.2500 #### [facility] [address] [place], [address] Globulin (S) [Mass/Vol] 3.9 g/dL Normal 2.2-4.2 [facility] Comment on above: Performed By: #### L 700.6800, L100.0100, L500.2500 #### [facility] [address] [place], [address] Glucose [Mass/Vol] 233 mg/dL High 70-99 [facility] Comment on above: Performed By: #### L 700.6800, L100.0100, L500.2500 #### [facility] [address] [place], [address] Potassium [Moles/Vol] 4.6 mmol/L Normal 3.3-5.1 [facility] Comment on above: Performed By: #### L 700.6800, L100.0100, L500.2500 #### [facility] [address] [place], [address] Sodium [Moles/Vol] 135 mmol/L Normal 133-145 [facility] Comment on above: Performed By: #### L 700.6800, L100.0100, L500.2500 #### [facility] [address] [place], [address] T PROT 7.5 g/dL Normal 5.9-8.4 [facility] Comment on above: Performed By: #### L 700.6800, L100.0100, L500.2500 #### [facility] [address] [place], [address] Urea nitrogen [Mass/Vol] 12 mg/dL Normal 4-19 [facility] Comment on above: Performed By: #### L 700.6800, L100.0100, L500.2500 #### [facility] [address] [place], [address] Eosinophil percentageOrdered By: [facility] Amy Solorzano on 10-17-2024 Eosinophils/100 WBC (Bld) 0.7 % 0-5 [facility] Erythrocyte distribution wid th (RBC) [Ratio]Ordered By: [facility] Amy Solorzano on 10-17-2024 Erythrocyte distribution width (RBC) [Entitic vol] 41.9 fL 35.1-43.9 [facility] Erythrocyte distribution wid th ratioOrdered By: [facility] Amy Solorzano on 10-17-2024 Erythrocyte distribution width (RBC) [Ratio] 14.1 % 11.6-14.6 [facility] Erythrocyte distribution wid th standard deviationOrdered By: [facility] Amy Solorzano on 10-17-2024 Erythrocyte distribution width (RBC) [Ratio] 41.9 fl 35.1-43.9 [facility] GFR/1.73 sq M.predicted taryn g non-blacks MDRD (S/P/Bld) [Vol rate/Area]Ordered By: [facility] Amy Solorzano on 10-17-2024 Estimated GFR (MDRD) Non-Af Amer [address] [facility] Comment on above: mL/min/1.73m2 CKD-EP I Creatinine Equation (2020) Glomerular filtration rate ( GFR) estimation/1.73 sq m using serum, plasma, or whole bOrdered By: [facility] Amy Solorzano on 10-17-2024 GFR/1.73 sq M.predicted among non-blacks MDRD (S/P/Bld) [Vol rate/Area] 95 mL/min/{1.73_m2} >60 [facility] Comment on above: mL/min/1.73m2 CKD-EP I Creatinine Equation (2020) Hematocrit Auto (Bld) [Volum e fraction]Ordered By: [facility] Amy Solorzano on 10-17-2024 Hematocrit (Bld) [Volume fraction] 39.5 % 37-47 [facility] Hemoglobin measurementOrdere d By: [facility] Amy Rashad on 10-17-2024 Hemoglobin (Bld) [Mass/Vol] 12.8 g/dL 12.0-15.0 [facility] Immature granulocytes/100 WB C Auto (Bld)Ordered By: [facility] Amy Rashad on 10-17-2024 Immature granulocytes/100 WBC (Bld) 1.000 % High 0.0-0.9 [facility] Comment on above: IG% - Immature Granu locytes (promyelocytes, myelocytes and metamyelocytes) > 1% indicates that a LEFT SHIFT is Present. LDL calc ser/plasOrdered By: [facility] Amy Rashad on 10-17-2024 Cholesterol in LDL [Mass/Vol] 70 mg/dL [facility] Comment on above: Tykmubvxzt=302-764 m g/dL & Higher Hdok=371 mg/dL or greater LDL Cholesterol, Calculated 70 mg/dL [facility] Comment on above: Mgbnsizeth=711-926 m g/dL & Higher Sbsu=564 mg/dL or greater Laboratory - Chemistry and C hemistry - challengeOrdered By: [facility] Amy Rashad on 10-17-2024 AST [Catalytic activity/Vol] 18 U/L <32 [facility] Lipid Profileon 10-17-2024 CHOL:HDL 4.[address] [facility] Comment on above: Performed By: #### L 700.6800, L100.0100, L500.2500 #### [facility] [address] [place], [address] Cholesterol [Mass/Vol] 164 mg/dL Normal <=[address] [facility] Comment on above: Result Comment: Chol esterol level, Desirable <200 mg/dL Borderline high cholesterol 200-239 mg/dL High cholesterol >=240 mg/dL Recommendations of the NCEP Adult Treatment Panel for the following risk-cutoff thresholds for the [place] population. Performed By: #### L 700.6800, L100.0100, L500.2500 #### [facility] [address] [place], [address] Cholesterol in HDL [Mass/Vol] 37 mg/dL Low [facility] Comment on above: Result Comment: Lupe onal Cholesterol Education Program (NCEP) guidelines: <40 mg/dL: Low HDL-cholesterol (major risk factor for CHD) >= 60 mg/dL: High HDL-cholesterol (negative risk factor for CHD) HDL-cholesterol is affected by a number of factors, e.g. smoking, exercise, hormones, sex and age. Performed By: #### L 700.6800, L100.0100, L500.2500 #### [facility] [address] [place], [address] Cholesterol in LDL [Mass/Vol] 70 mg/dL Normal [facility] Comment on above: Result Comment: Bord dghnqh=815-183 mg/dL Higher Fbrk=886 mg/dL or greater Performed By: #### L 700.6800, L100.0100, L500.2500 #### [facility] [address] [place], [address] Cholesterol in VLDL [Mass/Vol] 57 mg/dL High 5-40 [facility] Comment on above: Performed By: #### L 700.6800, L100.0100, L500.2500 #### [facility] [address] [place], [address] Triglyceride [Mass/Vol] 287 mg/dL High [facility] Comment on above: Result Comment: The drugs N-Acetylcysteine and Metamizole may falsely depress this assay. Normal range: <150 mg/dL Borderline High: 150-199 mg/dL High: 200-499 mg/dL Very High: >500 mg/dL Performed By: #### L 700.6800, L100.0100, L500.2500 #### [facility] [address] [place], [address] Lymphocytes Auto (Unsp spec) [#/Vol]Ordered By: [facility] Amy Solorzano on 10-17-2024 Lymphocytes (Bld) [#/Vol] 3.16 10*3/uL 0.83-4.51 [facility] Lymphocytes/100 WBC Auto (Un sp spec)Ordered By: [facility] Amykeiko Solorzano on 10-17-2024 Lymphocytes/100 WBC (Bld) 29.7 % 19-41 [facility] MCV (mean corpuscular volume ) determinationOrdered By: [facility] Amy Solorzano on 10-17-2024 MCV (RBC) [Entitic vol] 82.1 fL 81-99 [facility] Mean corpuscular hemoglobin (MCH) determinationOrdered By: [facility] on 10-17-2024 MCH (RBC) [Entitic mass] 26.6 pg Low 27.0-32.0 [facility] Mean corpuscular hemoglobin concentration (MCHC) determinationOrdered By: [facility] Amy Solorzano on 10-17-2024 MCHC (RBC) [Mass/Vol] 32.4 g/dL 32-36 [facility] Mean platelet volume determi nationOrdered By: [facility] Sol[facility] on 10-17-2024 Platelet mean volume (Bld) [Entitic vol] 9.7 fL 6.2-12.0 [facility] Microalbumin,Random Urineon 10-17-2024 MICROALBUMIN,UR < 12.0 Normal NO RANGE EST. [facility] Comment on above: Performed By: #### L 700.6800, L100.0100, L500.2500 #### [facility] [address] [facility] [place], [address] Monocyte percentageOrdered B y: [facility] Amy Solorzano on 10-17-2024 Monocytes/100 WBC (Bld) 6.0 % 0-10 [facility] Neutrophil percentageOrdered By: [facility] Amy Solorzano on 10-17-2024 Neutrophils/100 WBC (Bld) 62.2 % 47-70 [facility] Nucleated red blood cell per centageOrdered By: [facility] Amy Solorzano on 10-17-2024 Nucleated RBC/100 WBC (Bld) [Ratio] 0 % 0-5 [facility] Platelet countOrdered By: [facility] Amy Solorzano on 10-17-2024 Platelets (Bld) [#/Vol] 332 10*3/uL 150-450 [facility] Potassium (Unsp spec) [Mass/ Vol]Ordered By: [facility] Amy Solorzano on 10-17-2024 Potassium [Moles/Vol] 4.6 mmol/L 3.3-5.1 [facility] Potassium measurement (mass/ volume)Ordered By: [facility] Amy Solorzano on 10-17-2024 Potassium (Unsp spec) [Mass/Vol] 4.6 mmol/L 3.3-5.1 [facility] RBC Auto (Bld) [#/Vol]Ordere d By: [facility] Amy Solorzano on 10-17-2024 RBC (Bld) [#/Vol] 4.81 10*6/uL 4.2-5.4 [facility] Screening total cholesterol/ high density lipoprotein (HDL) cholesterol ratioOrdered By: [facility] Amy Solorzano on 10-17-2024 Cholesterol.total/Breonna sterol in HDL [Mass ratio] 4.44 {ratio} [facility] Serum creatinine measurement (mass/volume)Ordered By: [facility] Amy Solorzaon on 10-17-2024 Creatinine [Mass/Vol] 0.84 mg/dL 0.70-1.20 [facility] Serum globulin measurementOr dered By: [facility] Amy Solorzano on 10-17-2024 Globulin (S) [Mass/Vol] 3.9 g/dL 2.2-4.2 [facility] Serum glucose measurement (m ass/volume)Ordered By: [facility] Amy Solorzano on 10-17-2024 Glucose [Mass/Vol] 233 mg/dL High 70-99 [facility] Serum or plasma alanine jordan otransferase (ALT) measurementOrdered By: [facility] Amy Solorzano on 10-17-2024 ALT [Catalytic activity/Vol] 12 U/L <35 [facility] Serum or plasma albumin hussein urement (mass/volume)Ordered By: [facility] Amy Solorzano on 10-17-2024 Albumin [Mass/Vol] 3.7 g/dL 3.5-5.0 [facility] Serum or plasma albumin/glob ulin mass ratioOrdered By: [facility] Amy Solorzano on 10-17-2024 Albumin/Globulin [Mass ratio] 0.9 {ratio} 0.9-2.4 [facility] Serum or plasma alkaline bradley sphatase measurementOrdered By: [facility] on 10-17-2024 ALP [Catalytic activity/Vol] 93 U/L 35-104 [facility] Serum or plasma calcium hussein urement (mass/volume)Ordered By: [facility] on 10-17-2024 Calcium [Mass/Vol] 9.2 mg/dL 7.6-11.0 [facility] Serum or plasma cholesterol in HDL measurement (mass/volume)Ordered By: [facility] on 10-17-2024 Cholesterol in HDL [Mass/Vol] 37 mg/dL Low >40 [facility] Comment on above: National Cholesterol Education Program (NCEP) guidelines:<40 mg/dL: Low HDL-cholesterol (major risk factor for CHD)>= 60 mg/dL: High HDL-cholesterol (negative risk factor for CHD)HDL-cholesterol is affected by a number of factors, e.g. smoking, exercise, hormones, sex and age. Serum or plasma cholesterol measurement (mass/volume)[facility] Rashad on 10-17-2024 Cholesterol [Mass/Vol] 164 mg/dL <[address] [facility] Comment on above: Cholesterol level, D esirable <200 mg/dLBorderline high cholesterol 200-239 mg/dLHigh cholesterol >=240 mg/dLRecommendations of the NCEP Adult Treatment Panel for the following risk-cutoff thresholds for the [place] population. Serum or plasma urea nitroge n measurement (mass/volume)Ordered By: [facility]sAmypalma Solorzano on 10-17-2024 Urea nitrogen [Mass/Vol] 12 mg/dL 4-19 [facility] Sodium levelOrdered By: [facility] Rashad on 10-17-2024 Sodium [Moles/Vol] 135 mmol/L 133-145 [facility] TSH DL <= 0.005 mIU/L QnOrde red By: [facility]mypalma Solorzano on 10-17-2024 Thyroid Stimulating Hormone (TSH) 1.180 uIU/mL 0.300-4.200 [facility] TSH Qn 1.180 uIU/mL 0.300-4.200 [facility] Thyroid Stim Hormone (TSH)on 10-17-2024 TSH 1.180 uIU/mL Normal 0.300-4.200 [facility] Comment on above: Performed By: #### L 700.6800, L100.0100, L500.2500 #### [facility] [address] [place], [address] Total proteinOrdered By: [facility] Amy Solorzano on 10-17-2024 Protein [Mass/Vol] 7.5 g/dL 5.9-8.4 [facility] Triglycerides measurementOrd ered By: [facility] Amy Solorzano on 10-17-2024 Triglyceride [Mass/Vol] 287 mg/dL High <[address] [facility] Comment on above: The drugs N-Acetylcy steine and Metamizole may falsely depress this assay. Normal range: <150 mg/dLBorderline High: 150-199 mg/dLHigh: 200-499 mg/dLVery High: >500 mg/dL Urine albumin measurement [facility] detection limit of 20 mg/L or less (mass/volume)Ordered By: [facility] Amy Solorzano on 10-17-2024 Albumin DL <= 20 mg/L (U) [Mass/Vol] < 12.0 mg/L NO RANGE EST. [facility] Vitamin D, 25-hydroxyOrdered By: [facility] Amy Solorzano on 10-17-2024 Vitamin D 25-Hydroxy 10.7 ng/mL Low 30-100 [facility] Comment on above: Vitamin D StatusDefi ciency: <20 ng/mL (50nmol/L)Insufficiency: 20-30 ng/mL (50-75 nmol/L)Sufficiency: 30-100 ng/mL (75-250 nmol/L)Toxicity: >100 ng/mL (>250 nmol/L) Vitamin D,25 Hydroxyon 10-17 Vitamin D 25-OH 10.7 ng/mL Low 30-100 [facility] Comment on above: Result Comment: Claudia min D Status Deficiency: <20 ng/mL (50nmol/L) Insufficiency: 20-30 ng/mL (50-75 nmol/L) Sufficiency: 30-100 ng/mL (75-250 nmol/L) Toxicity: >100 ng/mL (>250 nmol/L) Performed By: #### L 700.6800, L100.0100, L500.2500 #### [facility] [place], [address] White blood cell (WBC) count Ordered By: [facility] Amy Rashad on 10-17-2024 WBC (Bld) [#/Vol] 10.6 10*3/uL 4.4-11.0 [facility] 07-03-2024 [facility] Office Visit (UCWSTR ) GHISLAINE GIVENS ([id number]) 1990 F UPA Date Time Provider Department 07/03/24 1:[address] [facility] During your visit today, we recorded the following information about you: Temperature Pulse Respiration Blood pressure 97 degrees 104/minute 16/minute 122/90 Weight Last Period 115.9 kg 06/20/24 Irais Hanna PA 07/03/2024 1:13 PM Signed This note was created using [employer]. Subjective Ghislaine Givens is a 34 year old female. HPI 34-year-old female presents for cough. Patient states she has had a cough for about a week. She was seen here a week ago and diagnosed with bronchopneumonia based on exam. Patient was treated with azithromycin and Tessalon Perles. Patient states cough resolved and then yesterday returned again. She denies any chest pain or shortness of breath. She does not really feel like she is wheezing. She does have history of asthma and has been using her inhaler. She states she has not had increase inhaler use. No vomiting or diarrhea. She denies any fevers. No nasal congestion. No other complaint. 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 MEDICATIONS benzonatate (TESSALON PERLE) 100 mg capsule Take 1 capsule by mouth three times a day as needed for cough for up to 7 days. acetaminophen (TYLENOL EXTRA STRENGTH) 500 mg tablet Take 2 tablets by mouth every 6 hours as needed for pain. metFORMIN (GLUCOPHAGE) 500 mg tablet Take 1 tablet by mouth twice daily with meals. losartan (COZAAR) 50 mg tablet Take 1 tablet by mouth once daily. prochlorperazine (COMPAZINE) 5 mg tablet Take 2 tablets by mouth every 6 hours as needed. polyethylene glycol 3350 (MIRALAX) 17 gram/dose powder Take 17 g by mouth once daily. Dissolve dose in 4 - 8 ounces of liquid and take as directed. Patient not started yet. traZODone HCl (DESYREL) 300 mg tablet Take 300 mg by mouth daily at bedtime. albuterol HFA (PROAIR HFA) 90 mcg/actuation inhaler Inhale 2 Puffs as instructed every 4 hours as needed. insulin glargine 100 unit/mL (3 mL) Inject 10 Units subcutaneously twice daily. bacitracin 500 unit/gram ointment Apply to affected area twice daily. dextromethorphan-guaiFE Nesin (MUCINEX DM) 30-600 mg per tablet Take 1 tablet by mouth two times a day as needed for cough for up to 7 days. azithromycin (ZITHROMAX Z-QUITA) 250 mg tablet Take 2 tablets (500 mg) by mouth on day 1, then take 1 tablet (250 mg) by mouth for 4 days. (Patient not taking: Reported on 07/03/2024) pantoprazole DR (PROTONIX) 40 mg tablet Take 1 tablet by mouth twice daily before meals (0600/1600). FAMILY HISTORY Problem Relation Age of Onset Diabetes Mother Hypertension Mother Heart Maternal Grandmother Heart Maternal Grandfather other (bipolar [Other]) Mother Heart Paternal Grandmother Hypertension Paternal Grandmother Diabetes Paternal Grandmother Diabetes Paternal Aunt Cancer Mother Lung Arthritis Paternal Aunt Social History Tobacco Use Smoking status: Every Day Current packs/day: 1.50 Average packs/day: 1.5 packs/day for 3.0 years (4.5 ttl pk-yrs) Types: Cigarettes Smokeless tobacco: Never Substance Use Topics Alcohol use: Not Currently Comment: rare Drug use: Not Currently Types: Marijuana Comment: Last 2 months ago Review of Systems Constitutional: Negative for chills and fever. HENT: Negative for congestion, ear pain and sore throat. Respiratory: Positive for cough. Negative for shortness of breath. Cardiovascular: Negative for chest pain. Gastrointestinal: Negative for diarrhea and vomiting. Objective BP 122/90 Pulse 104 Temp 36.1 ?C (97 ?F) (Left Tympanic) Resp 16 Wt 115.9 kg (255 lb 8.2 oz) LMP 06/20/2024 (Approximate) SpO2 100% BMI 40.02 kg/m? Physical Exam Vitals and nursing note reviewed. Constitutional: General: She is not in acute distress. Appearance: Normal appearance. She is not toxic-appearing. HENT: Right Ear: Tympanic membrane and ear canal normal. Left Ear: Tympanic membrane and ear canal normal. Nose: Nose normal. Mouth/Throat: Mouth: Mucous membranes are moist. Eyes: Conjunctiva/sclera: Conjunctivae normal. Cardiovascular: Rate and Rhythm: Normal rate and regular rhythm. Pulmonary: Effort: Pulmonary effort is normal. Breath sounds: Normal breath sounds. No wheezing, rhonchi or rales. Skin: General: Skin is warm and dry. Neurological: Mental Status: She is alert. Assessment and Plan ASSESSMENT/PLAN: 1. Acute cough - ICD9: 786.2, ICD10: R05.1 - XR CHEST 2V FRONTAL/LAT-low lung volumes. No acute radiographic abnormality. -Patient is a diabeti (more content not included)... Normal [facility] XR CHEST 2V FRONTAL/LATon XR CHEST 2V FRONTAL/LAT * * *Final Repor t* * * DATE OF EXAM: Jul 03 2024 1:04PM WOX [id number] - XR CHEST 2V FRONTAL/LAT / PROCEDURE REASON: Acute cough * * * * Physician Interpretation * * * * EXAMINATION: CHEST RADIOGRAPH (2 VIEW FRONTAL and LATERAL) PATIENT/TECHNOLOGIST PROVIDED HISTORY: was seen last week and given zpak and cough became worse yesterday CLINICAL HISTORY: 34 years old Female with Acute cough MQ: XC2_6 EXAM DATE/TIME: 07/03/2024 1:04 PM COMPARISON: Chest radiograph(s) dated 03/23/2022 RESULT: Lines, tubes, and devices: None. Lungs and pleura: Low lung volumes with crowding of the bronchovascular markings. No consolidation. No pleural effusion or pneumothorax. Cardiomediastinal silhouette: Normal cardiomediastinal silhouette. Bones and soft tissues: Unremarkable. IMPRESSION: Low lung volumes. No acute radiographic abnormality. Hearing Aid Assistant: OLGA Transcribe Date/Time: Jul 03 2024 1:07P Dictated by : THANIA ROSS DO This examination was interpreted and the report reviewed and electronically signed by: THANIA ROSS DO on Jul 03 2024 1:08PM EST [id number] Normal [facility] XR Chest PA and Lateralon IMPRESSION: Low lung volumes. No acute radiographic abnormality. Hearing Aid Assistant: OLGA Transcribe Date/Time: Jul 03 2024 1:07P Dictated by : THANIA ROSS DO This examination was interpreted and the report reviewed and electronically signed by: THANIA ROSS DO on Jul 03 2024 1:08PM EST DIVISION OF RADIOLOGY * * *Final Report* * * DATE OF EXAM: Jul 03 2024 1:04PM WOX [id number] - XR CHEST 2V FRONTAL/LAT / PROCEDURE REASON: Acute cough * * * * Physician Interpretation * * * * EXAMINATION: CHEST RADIOGRAPH (2 VIEW FRONTAL & LATERAL) PATIENT/TECHNOLOGIST PROVIDED HISTORY: was seen last week and given zpak and cough became worse yesterday CLINICAL HISTORY: 34 years old Female with Acute cough MQ: XC2_6 EXAM DATE/TIME: 07/03/2024 1:04 PM COMPARISON: Chest radiograph(s) dated 03/23/2022 RESULT: Lines, tubes, and devices: None. Lungs and pleura: Low lung volumes with crowding of the bronchovascular markings. No consolidation. No pleural effusion or pneumothorax. Cardiomediastinal silhouette: Normal cardiomediastinal silhouette. Bones and soft tissues: Unremarkable. DIVISION OF RADIOLOGY Provider, [facility] - 07/03/2024 * * *Final Report* * * DATE OF EXAM: Jul 03 2024 1:04PM WOX [id number] - XR CHEST 2V FRONTAL/LAT / PROCEDURE REASON: Acute cough * * * * Physician Interpretation * * * * EXAMINATION: CHEST RADIOGRAPH (2 VIEW FRONTAL & LATERAL) PATIENT/TECHNOLOGIST PROVIDED HISTORY: was seen last week and given zpak and cough became worse yesterday CLINICAL HISTORY: 34 years old Female with Acute cough MQ: XC2_6 EXAM DATE/TIME: 07/03/2024 1:04 PM COMPARISON: Chest radiograph(s) dated 03/23/2022 RESULT: Lines, tubes, and devices: None. Lungs and pleura: Low lung volumes with crowding of the bronchovascular markings. No consolidation. No pleural effusion or pneumothorax. Cardiomediastinal silhouette: Normal cardiomediastinal silhouette. Bones and soft tissues: Unremarkable. IMPRESSION IMPRESSION: Low lung volumes. No acute radiographic abnormality. Hearing Aid Assistant: PSCTarik Transcribe Date/Time: Jul 03 2024 1:07P Dictated by : THANIA ROSS DO This examination was interpreted and the report reviewed and electronically signed by: THANIA ROSS DO on Jul 03 2024 1:08PM [facility] Radiology Study observation (narrative) Melissa gupta [facility] XR Chest PA and LateralOrder ed By: [facility] Provider on 07-03-2024 [facility] CNOVon 06-26-2024 CNOV Office Visit (UCWSTR ) GHISLAINE GIVENS ([id number]) 1990 F U[place] Date Time Provider Department 06/26/24 10:[address] [facility] During your visit today, we recorded the following information about you: Temperature Pulse Respiration Blood pressure 97.4 degrees 117/minute 18/minute 122/78 Weight 115.7 kg Frantz Arevalo PA-C 06/26/2024 11:03 AM Signed This note was created using [employer]. Subjective Ghislaine Givens is a 34 year old female. Patient is a 34-year-old female who complains of worsening loose, productive cough that she has been experiencing for the past 10 days. Patient states that her symptoms initially presented with congestion, sinus pressure and sore throat, but she reports that the symptoms have largely resolved. Patient states that she has subsequently developed a worsening coarse cough. Patient does have asthma and states she is using her albuterol MDI as directed. Patient reports that her albuterol MDI is current and she does not require a refill of same. Patient reports no increased episodes of wheezing and denies dyspnea or shortness of breath. Patient has no history of COPD and does not smoke. Cough Review of Systems Respiratory: Positive for cough. All other systems reviewed and are negative. Objective BP 122/78 Pulse 117 Temp 36.3 ?C (97.4 ?F) (Tympanic) Resp 18 Wt 115.7 kg (255 lb 1.2 oz) LMP 06/14/2023 (Approximate) SpO2 97% BMI 39.95 kg/m? Physical Exam Vitals and nursing note reviewed. Constitutional: Appearance: Normal appearance. She is normal weight. HENT: Head: Normocephalic and atraumatic. Right Ear: Tympanic membrane, ear canal and external ear normal. Left Ear: Tympanic membrane, ear canal and external ear normal. Nose: Nose normal. Mouth/Throat: Mouth: Mucous membranes are moist. Pharynx: Oropharynx is clear. Eyes: Extraocular Movements: Extraocular movements intact. Conjunctiva/sclera: Conjunctivae normal. Pupils: Pupils are equal, round, and reactive to light. Cardiovascular: Rate and Rhythm: Normal rate and regular rhythm. Pulses: Normal pulses. Heart sounds: Normal heart sounds. Pulmonary: Effort: Pulmonary effort is normal. No respiratory distress. Breath sounds: No stridor. Rhonchi present. No wheezing or rales. Chest: Chest wall: No tenderness. Musculoskeletal: Cervical back: Normal range of motion and neck supple. Skin: General: Skin is warm and dry. Capillary Refill: Capillary refill takes less than 2 seconds. Neurological: General: No focal deficit present. Mental Status: She is alert and oriented to person, place, and time. Psychiatric: Mood and Affect: Mood normal. Behavior: Behavior normal. Thought Content: Thought content normal. Judgment: Judgment normal. Assessment and Plan Physical exam findings as noted above. Patient was provided with prescriptions for Zithromax 250 mg and Tessalon 100 mg. Patient is an insulin-dependent diabetic and a prescription for prednisone was withheld. Patient was very clearly instructed to report to an emergency department if she notes any acute worsening of her symptoms. Patient verbalizes excellent understanding of the instructions. CLINICAL IMPRESSION: Bronchopneumonia; Asthma ASSESSMENT/PLAN: 1. Bronchopneumonia - ICD9: 485, ICD10: J18.0 (primary diagnosis) - AZITHROMYCIN 250 MG TABLET - BENZONATATE 100 MG CAPSULE 2. Mild intermittent asthma, uncomplicated - ICD9: 493.90, ICD10: J45.20 Frantz Arevalo PA-C Allergies As of Date: 06/26/2024 (No Known Allergies) Date Reviewed: 06/26/2024 Reviewed by: Ara Lopez LPN - Fully Assessed Reason for Visit: Cough [28] Cmt: Cough x 1 week Primary Visit Diagnosis:Bronchopneumo sharlene [J18.0] Other Visit Diagnosis:Mild intermittent asthma, uncomplicated [J45.20] Order(s):azithromycin (ZITHROMAX Z-QUITA) 250 mg tabletTake 2 tablets (500 mg) by mouth on day 1, then take 1 tablet (250 mg) by mouth for 4 days.Disp: 6 tabletRfl: 0 benzonatate (TESSALON PERLE) 100 mg capsuleTake 1 capsule by mouth three times a day as needed for cough for up to 7 days.Disp: 21 capsuleRfl: 0 Prescriptions as of 06/26/2024 - azithromycin (ZITHROMAX Z-QUITA) 250 mg tablet Take 2 tablets (500 mg) by mouth on day 1, then take 1 tablet (250 mg) by mouth for 4 days. - benzonatate (TESSALON PERLE) 100 mg capsule Take 1 capsule by mouth three times a day as needed for cough for up to 7 days. - acetaminophen (TYLENOL EXTRA STRENGTH) 500 mg tablet Take 2 tablets by mouth every 6 hours as needed for pain. - metFORMIN (GLUCOPHAGE) 500 mg tablet Take 1 tablet by mouth twice daily with meals. - losartan (COZAAR) 50 mg tablet Take 1 tablet by mouth once daily. - prochlorperazine (COMPAZINE) 5 mg tablet Take 2 tablets by mouth every 6 hours as needed. - polyethylene glycol 3350 (MIRALAX) 17 gram/dose powder T (more content not included)... Normal [facility] CBC W/Diff, Automatedon 10-1 5-2024 Absolute Lymph 4.36 X10 3/uL Normal 0.83-4.51 [facility] Comment on above: Performed By: #### L 500.2500, L100.0100 #### [facility] [address] [place], [address] Absolute Neut 7.1 X10 3/uL Normal 2.0-7.7 [facility] Comment on above: Performed By: #### L 500.2500, L100.0100 #### [facility] [address] [place], [address] Basophils/100 WBC (Bld) 0.6 % Normal 0-1 [facility] Comment on above: Performed By: #### L 500.2500, L100.0100 #### [facility] [address] [place], [address] Eosinophils/100 WBC (Bld) 1.3 % Normal 0-5 [facility] Comment on above: Performed By: #### L 500.2500, L100.0100 #### [facility] [address] [place], [address] Erythrocyte distribution width (RBC) [Ratio] 13.6 % Normal 11.6-14.6 [facility] Comment on above: Performed By: #### L 500.2500, L100.0100 #### [facility] [address] [place], [address] Hematocrit (Bld) [Volume fraction] 41.6 % Normal 37-47 [facility] Comment on above: Performed By: #### L 500.2500, L100.0100 #### [facility] [address] [place], [address] Hemoglobin (Bld) [Mass/Vol] 13.1 g/dL Normal 12.0-15.0 [facility] Comment on above: Performed By: #### L 500.2500, L100.0100 #### [facility] [address] [place], [address] IG% 1.300 High 0.0-0.9 [facility] Comment on above: Result Comment: IG% - Immature Granulocytes (promyelocytes, myelocytes and metamyelocytes) > 1% indicates that a LEFT SHIFT is Present. Performed By: #### L 500.2500, L100.0100 #### [facility] [address] [place], [address] Lymphocytes/100 WBC (Bld) 34.7 % Normal 19-41 [facility] Comment on above: Performed By: #### L 500.2500, L100.0100 #### [facility] [address] [place], [address] MCH (RBC) [Entitic mass] 26.3 pg Low 27.0-32.0 [facility] Comment on above: Performed By: #### L 500.2500, L100.0100 #### [facility] [address] [place], [address] MCHC (RBC) [Mass/Vol] 31.5 g/dL Low 32-36 [facility] Comment on above: Performed By: #### L 500.2500, L100.0100 #### [facility] [address] [place], [address] MCV (RBC) [Entitic vol] 83.5 fL Normal 81-99 [facility] Comment on above: Performed By: #### L 500.2500, L100.0100 #### [facility] [address] [place], [address] Monocytes/100 WBC (Bld) 5.4 % Normal 0-10 [facility] Comment on above: Performed By: #### L 500.2500, L100.0100 #### [facility] [address] [place], [address] Neutrophils/100 WBC (Bld) 56.7 % Normal 47-70 [facility] Comment on above: Performed By: #### L 500.2500, L100.0100 #### [facility] [address] [place], [address] Nucleated RBC (Bld) [#/Vol] 0 10*3/uL Normal 0-5 [facility] Comment on above: Performed By: #### L 500.2500, L100.0100 #### [facility] [address] [place], [address] Platelet mean volume (Bld) [Entitic vol] 9.4 fL Normal 6.2-12.0 [facility] Comment on above: Performed By: #### L 500.2500, L100.0100 #### [facility] [address] [place], [address] Platelets (Bld) [#/Vol] 368 10*3/uL Normal 150-450 [facility] Comment on above: Performed By: #### L 500.2500, L100.0100 #### [facility] [address] [place], [address] RBC (Bld) [#/Vol] 4.98 10*6/uL Normal 4.2-5.4 [facility] Comment on above: Performed By: #### L 500.2500, L100.0100 #### [facility] [address] [place], [address] RDW SD 41.3 fl Normal 35.1-43.9 [facility] Comment on above: Performed By: #### L 500.2500, L100.0100 #### [facility] [address] [place], [address] WBC (Bld) [#/Vol] 12.6 10*3/uL High 4.4-11.0 [facility] Comment on above: Performed By: #### L 500.2500, L100.0100 #### [facility] [address] [place], [address] Comprehensive Metabolic Prof ilon 04-25-2024 Albumin [Mass/Vol] 3.3 g/dL Normal 3.2-5.0 [facility] Comment on above: Performed By: #### L 500.2500, L100.0100 #### [facility] [address] [place], [address] Albumin/Globulin [Mass ratio] 0.6 {ratio} Low 0.9-2.4 [facility] Comment on above: Performed By: #### L 500.2500, L100.0100 #### [facility] [address] [place], [address] ALK P 89 U/L Normal 45-117 [facility] Comment on above: Performed By: #### L 500.2500, L100.0100 #### [facility] [address] [place], [address] ALT [Catalytic activity/Vol] 24 U/L Normal 13-56 [facility] Comment on above: Performed By: #### L 500.2500, L100.0100 #### [facility] [address] [place], [address] AST [Catalytic activity/Vol] 9 U/L Low 15-37 [facility] Comment on above: Performed By: #### L 500.2500, L100.0100 #### [facility] [address] [place], [address] Bilirubin [Mass/Vol] 0.30 mg/dL Normal 0.20-1.00 [facility] Comment on above: Result Comment: For patients on eltrombopag therapy, use of [facility] TBIL is not recommended. Performed By: #### L 500.2500, L100.0100 #### [facility] [address] [place], [address] BUN/CRE 13.5 RATIO Normal 10-20 [facility] Comment on above: Performed By: #### L 500.2500, L100.0100 #### [facility] [address] [place], [address] CA,Total 9.1 mg/dL Normal 8.5-10.1 [facility] Comment on above: Performed By: #### L 500.2500, L100.0100 #### [facility] [address] [place], [address] Chloride [Moles/Vol] 108 mmol/L High 98-107 [facility] Comment on above: Performed By: #### L 500.2500, L100.0100 #### [facility] [address] [place], [address] CO2 [Moles/Vol] 23.0 mmol/L Normal 21.0-32.0 [facility] Comment on above: Performed By: #### L 500.2500, L100.0100 #### [facility] [address] [place], [address] Creatinine [Mass/Vol] 0.89 mg/dL Normal 0.55-1.02 [facility] Comment on above: Result Comment: The validity of the calculated GFR GFRAA in patients over 70 years has not been determined. Clinical correlation is essential. Performed By: #### L 500.2500, L100.0100 #### [facility] [address] [place], [address] EST GFR - AA 95 mL/min Normal >60 [facility] Comment on above: Result Comment: Afri can [place] GFR Calc Performed By: #### L 500.2500, L100.0100 #### [facility] [address] [place], [address] GAP 7 Normal 5-15 [facility] Comment on above: Performed By: #### L 500.2500, L100.0100 #### [facility] [address] [place], [address] GFR/1.73 sq M.predicted among non-blacks MDRD (S/P/Bld) [Vol rate/Area] 78 mL/min/{1.73_m2} Normal >60 [facility] Comment on above: Result Comment: Non- GFR Calc Performed By: #### L 500.2500, L100.0100 #### [facility] [address] [place], [address] Globulin (S) [Mass/Vol] 5.2 g/dL High 2.2-4.2 [facility] Comment on above: Performed By: #### L 500.2500, L100.0100 #### [facility] [address] [place], [address] Glucose [Mass/Vol] 177 mg/dL High 74-106 [facility] Comment on above: Result Comment: Fast ing Glucose result greater than or equal to 126 mg/dL suggests DIABETES MELLITUS per A.D.A. criteria. Performed By: #### L 500.2500, L100.0100 #### [facility] [address] [place], [address] Potassium [Moles/Vol] 4.2 mmol/L Normal 3.5-5.1 [facility] Comment on above: Performed By: #### L 500.2500, L100.0100 #### [facility] [address] [place], [address] Sodium [Moles/Vol] 137 mmol/L Normal 136-145 [facility] Comment on above: Performed By: #### L 500.2500, L100.0100 #### [facility] [address] [place], [address] T PROT 8.5 g/dL High 6.4-8.2 [facility] Comment on above: Performed By: #### L 500.2500, L100.0100 #### [facility] [address] [place], [address] Urea nitrogen [Mass/Vol] 12 mg/dL Normal 7-18 [facility] Comment on above: Performed By: #### L 500.2500, L100.0100 #### [facility] [address] [place], [address] Lipid Profileon 04-25-2024 Cholesterol [Mass/Vol] 209 mg/dL High [address] [facility] Comment on above: Result Comment: <200 mg/dL Desirable 200-240 mg/dL Borderline >240 mg/dL High Risk Performed By: #### L 500.2500, L100.0100 #### [facility] [address] [place], [address] Cholesterol in HDL [Mass/Vol] 37 mg/dL Low [facility] Comment on above: Result Comment: The drugs N-Acetylcysteine and Metamizole may falsely depress this assay. Reference Range HDL <40 mg/dL Low HDL Cholesterol HDL >or= 60 mg/dL High HDL Cholesterol Performed By: #### L 500.2500, L100.0100 #### [facility] [address] [place], [address] Cholesterol in LDL [Mass/Vol] 127 mg/dL Normal 0-130 [facility] Comment on above: Performed By: #### L 500.2500, L100.0100 #### [facility] [address] [place], [address] Cholesterol in VLDL [Mass/Vol] 45 mg/dL High 5-40 [facility] Comment on above: Performed By: #### L 500.2500, L100.0100 #### [facility] [address] [place], [address] Triglyceride [Mass/Vol] 227 mg/dL High [facility] Comment on above: Result Comment: The drugs N-Acetylcysteine and Metamizole may falsely depress this assay. Serum Triglycerides Reference Interval Normal <150 mg/dL Borderline high 150 - 199 mg/dL High 200 - 499 mg/dL Very High > or = 500 mg/dL Performed By: #### L 500.2500, L100.0100 #### [facility] [address] [place], [address] Microalbumin,Random Urineon 04-25-2024 MICROALBUMIN,UR 147.0 mg/L Normal NO RANGE EST. [facility] Comment on above: Performed By: #### L 500.2500, L100.0100 #### [facility] [address] [place], [address] Thyroid Stim Hormone (TSH)on 04-25-2024 TSH 0.825 uIU/mL Normal 0.358-3.740 [facility] Comment on above: Performed By: #### L 500.2500, L100.0100 #### [facility] [address] [place], [address] Fungus cultureOrdered By: Neav Forrest on 07-23-2023 Fungus identified Cx Nom (Unsp spec) [facility] Fungus stainOrdered By: Jonas Forrest on 07-23-2023 Fungus identified Fungus stain Nom (Unsp spec) [facility] Glucose Glucometer (BldC) [M ass/Vol]Ordered By: Abdirizak Forrest on 07-23-2023 Glucose [Mass/Vol] 204 mg/dL 74-106 [facility] Comment on above: MANAGEMENT OF PATIEN T CARE PER NURSING PROTOCOL Laboratory - Chemistry and C hemistry - challengeOrdered By: Abdirahman Morton on 07-23-2023 HCG ( test) Ql (U) Negative [facility] Comment on above: Very dilute urine sp ecimens, as indicated by a low specificgravity, may not contain business representative levels of hCG. If is still suspected, a first morning urinespecimen should be collected 48 hours later and tested. No Panel InformationOrdered By: Abdirahman Morton on 07-23-[address] [facility] - Chemistry and C hemistry - challengeOrdered By: Abdirahman Morton on 07-16-2023 Magnesium [Mass/Vol] 2.0 mg/dL 1.6-2.6 [facility] No Panel InformationOrdered By: Abdirahman Morton on 07-16-2023 2.0 mg/dL 1.6-2.6 [facility] 25(OH)D3 SerPl-mCncon 2023 25-hydroxyvitamin D3 [Mass/Vol] 9.5 ng/mL Low 31.0-80.0 [facility] Comment on above: Order Comment: Speci men Type: BLOOD SPECIMEN Ordering Facility: [facility] Address: [address] [place] [address], [place] [address] Result Comment: Clas sification of 25 [place] Vitamin D status: Deficiency/Insufficiency: < or = 30 ng/ml. Sufficiency/Optimal Levels: 31-80 ng/mL Toxicity: > 100 ng/mL. Test performed by chemiluminescent immunoassay. Performed By: #### 1 989-3 #### [facility] CLIA [id number] [address] [place] [address] [place] CBC panel Auto (Bld)on 07-14 Erythrocyte distribution width (RBC) [Ratio] 13.2 % Normal 11.5-15.0 [facility] Comment on above: Order Comment: Speci men Type: BLOOD SPECIMEN Ordering Facility: [facility] Address: [address] [place] [address], [place] [address] Performed By: #### 5 8410-2 #### [facility] CLIA [id number] [address] [place] [address] [place] Hematocrit (Bld) [Volume fraction] 41.9 % Normal 36.0-46.0 [facility] Comment on above: Order Comment: Timuri men Type: BLOOD SPECIMEN Ordering Facility: [facility] Address: [address] [place] [address] Performed By: #### 5 8410-2 #### [facility] CLIA [id number] [address] [place] [address] [place] Hemoglobin (Bld) [Mass/Vol] 12.8 g/dL Normal 11.5-15.5 [facility] Comment on above: Order Comment: Speci men Type: BLOOD SPECIMEN Ordering Facility: [facility] Address: [address] [place] [address] Performed By: #### 5 8410-2 #### [facility] CLIA [id number] [address] [place] [address] [place] MCH (RBC) [Entitic mass] 26.1 pg Normal 26.0-34.0 [facility] Comment on above: Order Comment: Speci men Type: BLOOD SPECIMEN Ordering Facility: [facility] Address: [address] [place] [address] Performed By: #### 5 8410-2 #### [facility] CLIA [id number] [address] [place] [address] [place] MCHC (RBC) [Mass/Vol] 30.5 g/dL Normal 30.5-36.0 [facility] Comment on above: Order Comment: Speci men Type: BLOOD SPECIMEN Ordering Facility: [facility] Address: [address] [place] [address] Performed By: #### 5 8410-2 #### [facility] CLIA [id number] [address] [place] [address] [place] MCV (RBC) [Entitic vol] 85.3 fL Normal 80.0-100.0 [facility] Comment on above: Order Comment: Speci men Type: BLOOD SPECIMEN Ordering Facility: [facility] Address: [address] [place] [address] Performed By: #### 5 8410-2 #### [facility] CLIA [id number] [address] [place] [address] [place] Nucleated RBC (Bld) [#/Vol] 10*3/uL Normal <0.01 [facility] Comment on above: Order Comment: Speci men Type: BLOOD SPECIMEN Ordering Facility: [facility] Address: [address] [place] [address] Performed By: #### 5 8410-2 #### [facility] CLIA [id number] [address] [place] [address] [place] Platelet mean volume (Bld) [Entitic vol] 10.0 fL Normal 9.0-12.7 [facility] Comment on above: Order Comment: Speci men Type: BLOOD SPECIMEN Ordering Facility: [facility] Address: [address] [place] [address] Performed By: #### 5 8410-2 #### [facility] CLIA [id number] [address] [place] [address] [place] Platelets (Bld) [#/Vol] 417 10*3/uL High 150-400 [facility] Comment on above: Order Comment: Speci men Type: BLOOD SPECIMEN Ordering Facility: [facility] Address: [address] [place] [address] Performed By: #### 5 8410-2 #### [facility] CLIA [id number] [address] [place] [address] [place] RBC (Bld) [#/Vol] 4.91 10*6/uL Normal 3.90-5.[address] [facility] Comment on above: Order Comment: Speci men Type: BLOOD SPECIMEN Ordering Facility: [facility] Address: [address] [place] [address] Performed By: #### 5 8410-2 #### [facility] CLIA [id number] [address] [place] [address] [place] WBC (Bld) [#/Vol] 7.59 10*3/uL Normal 3.70-11.[address] [facility] Comment on above: Order Comment: Speci men Type: BLOOD SPECIMEN Ordering Facility: [facility] Address: [address], [place] [address] Performed By: #### 5 8410-2 #### [facility] CLIA [id number] [address] [place] [address] [place] Comprehensive metabolic 2000 panelon 07-14-2023 Albumin [Mass/Vol] 4.0 g/dL Normal 3.9-4.9 [facility] Comment on above: Order Comment: Speci men Type: BLOOD SPECIMEN Ordering Facility: [facility] Address: [address] [place] [address], [place] [address] Performed By: #### 3 016-3, 96438-3 #### [facility] CLIA [id number] [address] [place] [address] [place] ALP [Catalytic activity/Vol] 106 U/L Normal 34-123 [facility] Comment on above: Order Comment: Speci men Type: BLOOD SPECIMEN Ordering Facility: [facility] Address: [address] [place] [address], [place] [address] Performed By: #### 3 016-3, 58294-2 #### [facility] CLIA [id number] [address] [place] [address] [place] ALT [Catalytic activity/Vol] 11 U/L Normal 7-38 [facility] Comment on above: Order Comment: Speci men Type: BLOOD SPECIMEN Ordering Facility: [facility] Address: [address], [place] [address] Performed By: #### 3 016-3, 04211-9 #### [facility] CLIA [id number] [address] [place], [place] [address] [place] Anion gap [Moles/Vol] 14 mmol/L Normal 9-18 [facility] Comment on above: Order Comment: Speci men Type: BLOOD SPECIMEN Ordering Facility: [facility] Address: [address] [place] [address] RD, [place] [address] Performed By: #### 3 -3, #### [facility] CLIA [id number] [address] [place] [address] [place] AST [Catalytic activity/Vol] 13 U/L Normal 13-35 [facility] Comment on above: Order Comment: Speci men Type: BLOOD SPECIMEN Ordering Facility: [facility] Address: [address] [place] [address], [place] [address] Performed By: #### 3 -3, #### [facility] CLIA [id number] [address] [place] [address] [place] Bilirubin [Mass/Vol] 0.3 mg/dL Normal 0.2-1.3 [facility] Comment on above: Order Comment: Speci men Type: BLOOD SPECIMEN Ordering Facility: [facility] Address: [address] [place] [address], [place] [address] Performed By: #### 3 , #### [facility] CLIA [id number] [address] [place] [address] [place] Calcium [Mass/Vol] 9.6 mg/dL Normal 8.5-10.2 [facility] Comment on above: Order Comment: Speci men Type: BLOOD SPECIMEN Ordering Facility: [facility] Address: [address] [place] [address], [place] [address] Performed By: #### 3 3, #### [facility] CLIA [id number] [address] [place] [address] [place] Chloride [Moles/Vol] 101 mmol/L Normal 97-105 [facility] Comment on above: Order Comment: Speci men Type: BLOOD SPECIMEN Ordering Facility: [facility] Address: [address] [place] [address], [place] [address] Performed By: #### 3 016-3, 32396-0 #### [facility] CLIA [id number] [address] [place] [address] [place] CO2 [Moles/Vol] 23 mmol/L Normal 22-30 [facility] Comment on above: Order Comment: Speci men Type: BLOOD SPECIMEN Ordering Facility: [facility] Address: [address] [place] [address] Performed By: #### 3 016-3, 64828-7 #### [facility] CLIA [id number] [address] [place] [address] [place] Creatinine [Mass/Vol] 0.69 mg/dL Normal 0.58-0.96 [facility] Comment on above: Order Comment: Speci men Type: BLOOD SPECIMEN Ordering Facility: [facility] Address: [address] [place] [address] Performed By: #### 3 016-3, 79653-9 #### [facility] CLIA [id number] [address] [place] [address] [place] Creatinine and Glomerular filtration rate.predicted panel (S/P/Bld) 119 mL/min/1.73m??? Normal >=60 [facility] Comment on above: Order Comment: Mahogany vargas Type: BLOOD SPECIMEN Ordering Facility: [facility] Address: [address] [place] [address] Result Comment: Samreen mated Glomerular Filtration Rate (eGFR) is calculated using the 2020 CKD-EPI creatinine equation. This equation utilizes serum creatinine, sex, and age as parameters. The creatinine assay has traceable calibration to isotope dilution-mass spectrometry. Refer to KDIGO guidelines for clinical interpretation. In patients with unstable renal function, e.g. those with acute kidney injury, the eGFR may not accurately reflect actual GFR. Performed By: #### 3 016-3, 93130-2 #### [facility] CLIA [id number] [address] [place] [address] [place] Glucose [Mass/Vol] 158 mg/dL High 74-99 [facility] Comment on above: Order Comment: Speci men Type: BLOOD SPECIMEN Ordering Facility: [facility] Address: [address] [place] [address], [place] [address] Result Comment: The [place] Diabetes Association (ADA) provides guidance for cutoff values for fasting glucose and random glucose. The ADA defines fasting as no caloric intake for at least 8 hours. Fasting plasma glucose results between 100 to 125 mg/dL indicate increased risk for diabetes (prediabetes). Fasting plasma glucose results greater than or equal to 126 mg/dL meet the criteria for diagnosis of diabetes. In the absence of unequivocal hyperglycemia, results should be confirmed by repeat testing. In a patient with classic symptoms of hyperglycemia or hyperglycemic crisis, random plasma glucose results greater than or equal to 200 mg/dL meet the criteria for diagnosis of diabetes. Reference: Standards of Medical Care in Diabetes 2016, [place] [employer] Association. Diabetes Care. 2016.39(Suppl 1). Performed By: #### 3 016-3, 90437-2 #### [facility] CLIA [id number] [address] [place] [address] [place] Potassium [Moles/Vol] 4.4 mmol/L Normal 3.7-5.1 [facility] Comment on above: Order Comment: Mahogany alicia Type: BLOOD SPECIMEN Ordering Facility: [facility] Address: [address] [place] [address] Performed By: #### 3 016-3, 19619-9 #### [facility] CLIA [id number] [address] [place] [address] [place] Protein [Mass/Vol] 7.5 g/dL Normal 6.3-8.0 [facility] Comment on above: Order Comment: Speci men Type: BLOOD SPECIMEN Ordering Facility: [facility] Address: [address] [place] [address] Performed By: #### 3 016-3, 05018-7 #### [facility] CLIA [id number] [address] [place] [id number] [place] Sodium [Moles/Vol] 138 mmol/L Normal 136-144 [facility] Comment on above: Order Comment: Speci men Type: BLOOD SPECIMEN Ordering Facility: [facility] Address: [address] [place] [address], [place] [address] Performed By: #### 3 016-3, 38574-1 #### [facility] CLIA [id number] [address] [place] [address] [place] Urea nitrogen [Mass/Vol] 9 mg/dL Normal 7-21 [facility] Comment on above: Order Comment: Speci men Type: BLOOD SPECIMEN Ordering Facility: [facility] Address: [address] [place] [address], [place] [address] Performed By: #### 3 016-3, 67836-6 #### [facility] CLIA [id number] [address] [place] [address] [place] HbA1c (Bld)on 07-14-2023 Average glucose Estimated from glycated hemoglobin (Bld) [Mass/Vol] 163 mg/dL Normal [facility] Comment on above: Order Comment: [facility] Type: BLOOD SPECIMEN Ordering Facility: [facility] Address: [address] [place] [address] Result Comment: eAG: (Estimated average glucose) is a calculated value from HgbA1c and is business representative of the average blood glucose level in the last 2-3 month period. Performed By: #### 5 5454-3 #### [facility] CLIA [id number] [address] [place] [address] [place] HbA1c (Bld) [Mass fraction] 7.3 % High 4.3-5.6 [facility] Comment on above: Order Comment: [facility] Type: BLOOD SPECIMEN Ordering Facility: [facility] Address: [address] [place] [address] Result Comment: [place] Diabetes Association guidelines indicate that patients with HgbA1c in the range 5.7-6.4% are at increased risk for development of diabetes, and intervention by lifestyle modification may be beneficial. HgbA1c greater or equal to 6.5% is considered diagnostic of diabetes. Performed By: #### 5 5454-3 #### [facility] CLIA [id number] [facility] [place] [address] [place] TSH SerPl-aCncon 07-14-2023 TSH Qn 0.660 m[IU]/L Normal 0.270-4.200 [facility] Comment on above: Order Comment: Speci men Type: BLOOD SPECIMEN Ordering Facility: [facility] Address: [address] [facility], [place] [address] Result Comment: If t he patient is , TSH reference range varies by gestational period: First Trimester (weeks 9-12): 0.180-2.990 mIU/L Second Trimester: 0.110-3.980 mIU/L Third Trimester: 0.480-4.710 mIU/L Francois Matthews et al. A Practical Approach for the Verifications and Determination of Site- and Trimester-Specific Reference Intervals for Thyroid Function tests in . Thyroid, 2019:29:3:412-420. Emeka Farrar, et al. 2017 Guidelines of the [place] Thyroid Association for the Diagnosis and Management of Thyroid Disease during and the . Thyroid, 2017:27:3:315-389. Performed By: #### 3 016-3, 51172-3 #### [facility] CLIA [id number] [address] [place] [address] [place] Absolute lymphocyte countOrd ered By: Willie Dhillon on 07-12-2023 Lymphocytes Auto (Unsp spec) [#/Vol] 4.46 10*3/uL 0.83-4.51 [facility] Basophil percentageOrdered B y: Willie Dhillon on 07-12-2023 Basophil percentage 5-10 SEEN /hpf 0-5 [facility] Basophil percentage 177 mg/dL 74-106 [facility] Basophil percentage 9.0 g/dL 6.4-8.2 [facility] Basophil percentage 0.60 mg/dL 0.20-1.00 [facility] Basophil percentage 136 mmol/L 136-145 [facility] Basophil percentage 4.2 mmol/L 3.5-5.1 [facility] Basophil percentage 100 mmol/L 98-107 [facility] Basophils (Bld) [#/Vol] 10.5 10*3/uL 4.4-11.0 [facility] Basophils (Bld) [#/Vol] 5.4 10*3/uL 2.0-7.7 [facility] Basophils/100 WBC (Bld) 51.3 % 47-70 [facility] Basophils/100 WBC (Bld) 0.3 % 0-5 [facility] Basophils/100 WBC (Bld) 0.4 % 0-1 [facility] Beta hCG serum qualOrdered B y: Willie Dhillon on 07-12-2023 Beta HCG ( test) Ql Negative [facility] Bilirubin Test strip Ql (U)O rdered By: Willie Dhillon on 07-12-2023 Bilirubin Ql (U) 1 mg/dL Negative [facility] Blood erythrocytes count (nu mber/volume)Ordered By: Willie Dhillon on 07-12-2023 RBC (Bld) [#/Vol] 5.20 10*6/uL 4.2-5.4 [facility] Blood hemoglobin measurement (mass/volume)Ordered By: Willie Dhillon on 07-12-2023 Hemoglobin (Bld) [Mass/Vol] 13.6 g/dL 12.0-15.0 [facility] Blood lymphocytes/100 leukoc ytesOrdered By: Willie Dhillon on 07-12-2023 Lymphocytes/100 WBC (Bld) 42.6 % 19-41 [facility] Blood monocytes/100 leukocyt esOrdered By: Willie Dhillon on 07-12-2023 Monocytes/100 WBC (Bld) 5.2 % 0-10 [facility] Blood platelet mean volumeOr dered By: Willie Dhillon on 07-12-2023 Platelet mean volume (Bld) [Entitic vol] 9.2 fL 6.2-12.0 [facility] Determination of erythrocyte mean corpuscular volume (MCV)Ordered By: Willie Dhillon on 07-12-2023 MCV (RBC) [Entitic vol] 82.7 fL 81-99 [facility] Hematocrit Auto (Bld) [Volum e fraction]Ordered By: Willie Dhillon on 07-12-2023 Hematocrit (Bld) [Volume fraction] 43.0 % 37-47 [facility] Ketones Test strip Ql (U)Ord ered By: Willie Dhillon on 07-12-2023 Ketones Ql (U) 5 mg/dl Negative [facility] MCHC Auto (RBC) [Mass/Vol]Or dered By: Willie Dhillon on 07-12-2023 MCHC (RBC) [Mass/Vol] 31.6 g/dL 32-36 [facility] Mucus LM Ql (Urine sed)Order ed By: Willie Dhillon on 07-12-2023 Mucus Ql (Urine sed) 0 SEEN /hpf [facility] Nitrite Test strip Ql (U)Ord ered By: Willie Dhillon on 07-12-2023 Nitrite Ql (U) Negative Negative [facility] No Panel InformationOrdered By: Willie Dhillon on 07-12-2023 26.2 pg 27.0-32.0 [facility] 13.3 % 11.6-14.6 [facility] 39.8 fl 35.1-43.9 [facility] 0.200 % 0.0-0.9 [facility] 0 % 0-5 [facility] 68 mL/min >60 [facility] 82 mL/min >60 [facility] 75.55 ml/min [facility] 12.9 RATIO 10-20 [facility] 5.4 g/dL 2.2-4.2 [facility] 30 U/L 13-75 [facility] 112 U/L 45-117 [facility] 12 U/L 13-56 [facility] 28.0 mmol/L 21.0-32.[facility] Negative < 50 ng/mL [facility] Positive < 500 ng/mL [facility] Platelets bldOrdered By: Heath Dhillon on 07-12-2023 Platelets (Bld) [#/Vol] 459 10*3/uL 150-450 [facility] Protein Test strip Ql (U)Ord ered By: Willie Dhillon on 07-12-2023 Protein Ql (U) 30 mg/dl Negative [facility] Serum or plasma albumin hussein urement (mass/volume)Ordered By: Willie Dhillon on 07-12-2023 Albumin [Mass/Vol] 3.6 g/dL 3.2-5.0 [facility] Serum or plasma albumin/glob ulin mass ratioOrdered By: Willie Dhillon on 07-12-2023 Albumin/Globulin [Mass ratio] 0.7 {ratio} 0.9-2.4 [facility] Serum or plasma calcium hussein urement (mass/volume)Ordered By: Willie Dhillon on 07-12-2023 Calcium [Mass/Vol] 9.3 mg/dL 8.5-10.1 [facility] Serum or plasma creatinine m easurement (mass/volume)Ordered By: Willie Dhillon on 07-12-2023 Creatinine [Mass/Vol] 1.01 mg/dL 0.55-1.02 [facility] Serum or plasma urea nitroge n measurement (mass/volume)Ordered By: Willie Dhillon on 07-12-2023 Urea nitrogen [Mass/Vol] 13 mg/dL 7-18 [facility] Squamous epithelial cells de tection in urine sediment by light microscopyOrdered By: Willie Dhillon on 07-12-2023 Epithelial cells.squamous LM Ql (Urine sed) 10-25 SEEN /hpf 5-10 [facility] Thin prep Papanicolaou smear with manual screeningOrdered By: Willie Dhillon on 07-12-2023 Thin prep Papanicolaou smear with manual screening 21 U/L 15-37 [facility] Thin prep Papanicolaou smear with manual screening 8 5-15 [facility] Urine blood detectionOrdered By: Willie Dhillon on 07-12-2023 RBC Ql (U) 10 /ul Negative [facility] RBC Ql (U) 0-5 SEEN /hpf 0-5 [facility] Urine clarityOrdered By: Heath Dhillon on 07-12-2023 Clarity (U) Cloudy Clear [facility] Urine color determinationOrd ered By: Willie Dhillon on 07-12-2023 Color (U) Yellow Yellow [facility] Urine glucose detectionOrder ed By: Willie Dhillon on 07-12-2023 Glucose Ql (U) Normal mg/dl Normal [facility] Urine leukocyte esterase det ection by dipstickOrdered By: Willie Dhillon on 07-12-2023 Leukocyte esterase Test strip Ql (U) 100 /ul Negative [facility] Urine pHOrdered By: Willie mo on 07-12-2023 pH (U) 7.0 [pH] 5.0 - 8.0 [facility] Urine phencyclidine (PCP) de tectionOrdered By: Willie Dhillon on 07-12-2023 Phencyclidine Ql (U) Negative < 25 ng/mL [facility] Urine sediment bacteria coun t by microscopy (number/high power field)Ordered By: Willie Dhillon on 07-12-2023 Bacteria LM.HPF (Urine sed) [#/Area] 2 /[HPF] None Seen [facility] Urine specific gravity measu rementOrdered By: Willie Dhillon on 07-12-2023 Specific gravity (U) [Rel density] 1.010 1.002-1.030 [facility] Urobilinogen Auto test strip Ql (U)Ordered By: Willie Dhillon on 07-12-2023 Urobilinogen Ql (U) 1 mg/dl Normal [facility] Absolute lymphocyte countOrd ered By: Alex Christiansen on 06-30-2023 Lymphocytes Auto (Unsp spec) [#/Vol] 2.97 10*3/uL 0.83-4.51 [facility] Basophil percentageOrdered B y: Alex Christiansen on 06-30-2023 Basophil percentage 201 mg/dL 74-106 [facility] Basophil percentage 8.0 g/dL 6.4-8.2 [facility] Basophil percentage 0.50 mg/dL 0.20-1.00 [facility] Basophil percentage 137 mmol/L 136-145 [facility] Basophil percentage 3.3 mmol/L 3.5-5.1 [facility] Basophil percentage 103 mmol/L 98-107 [facility] Basophils (Bld) [#/Vol] 9.9 10*3/uL 4.4-11.0 [facility] Basophils (Bld) [#/Vol] 6.2 10*3/uL 2.0-7.7 [facility] Basophils/100 WBC (Bld) 62.9 % 47-70 [facility] Basophils/100 WBC (Bld) 0.1 % 0-5 [facility] Basophils/100 WBC (Bld) 0.5 % 0-1 [facility] Blood erythrocytes count (nu mber/volume)Ordered By: Alex Christiansen on 06-30-2023 RBC (Bld) [#/Vol] 4.56 10*6/uL 4.2-5.4 [facility] Blood hemoglobin measurement (mass/volume)Ordered By: Alex Christiansen on 06-30-2023 Hemoglobin (Bld) [Mass/Vol] 12.2 g/dL 12.0-15.0 [facility] Blood lymphocytes/100 leukoc ytesOrdered By: Alex Christiansen on 06-30-2023 Lymphocytes/100 WBC (Bld) 30.0 % 19-41 [facility] Blood monocytes/100 leukocyt esOrdered By: Alex Christiansen on 06-30-2023 Monocytes/100 WBC (Bld) 6.1 % 0-10 [facility] Blood platelet mean volumeOr dered By: Alex Christiansen on 06-30-2023 Platelet mean volume (Bld) [Entitic vol] 9.0 fL 6.2-12.0 [facility] Determination of erythrocyte mean corpuscular volume (MCV)Ordered By: Alex Christiansen on 06-30-2023 MCV (RBC) [Entitic vol] 84.0 fL 81-99 [facility] Hematocrit Auto (Bld) [Volum e fraction]Ordered By: Alex Christiansen on 06-30-2023 Hematocrit (Bld) [Volume fraction] 38.3 % 37-47 [facility] MCHC Auto (RBC) [Mass/Vol]Or dered By: Alex Christiansen on 06-30-2023 MCHC (RBC) [Mass/Vol] 31.9 g/dL 32-36 [facility] No Panel InformationOrdered By: Alex Christiansen on 06-30-2023 26.8 pg 27.0-32.0 [facility] 13.6 % 11.6-14.6 [facility] 41.9 fl 35.1-43.9 [facility] 0.400 % 0.0-0.9 [facility] 0 % 0-5 [facility] 81 mL/min >60 [facility] 98 mL/min >60 [facility] 88.73 ml/min [facility] 10.4 RATIO 10-20 [facility] 4.6 g/dL 2.2-4.2 [facility] 22 U/L 13-75 [facility] 114 U/L 45-117 [facility] 11 U/L 13-56 [facility] 26.0 mmol/L 21.0-32.0 [facility] Platelets bldOrdered By: Milton Christiansen on 06-30-2023 Platelets (Bld) [#/Vol] 437 10*3/uL 150-450 [facility] Serum or plasma albumin hussein urement (mass/volume)Ordered By: Alex Christiansen on 06-30-2023 Albumin [Mass/Vol] 3.4 g/dL 3.2-5.0 [facility] Serum or plasma albumin/glob ulin mass ratioOrdered By: Alex Christiansen on 06-30-2023 Albumin/Globulin [Mass ratio] 0.7 {ratio} 0.9-2.4 [facility] Serum or plasma calcium hussein urement (mass/volume)Ordered By: Alex Christiansen on 06-30-2023 Calcium [Mass/Vol] 9.4 mg/dL 8.5-10.1 [facility] Serum or plasma creatinine m easurement (mass/volume)Ordered By: Alex Christiansen on 06-30-2023 Creatinine [Mass/Vol] 0.86 mg/dL 0.55-1.02 [facility] Serum or plasma urea nitroge n measurement (mass/volume)Ordered By: Alex Christiansen on 06-30-2023 Urea nitrogen [Mass/Vol] 9 mg/dL 7-18 [facility] Thin prep Papanicolaou smear with manual screeningOrdered By: Alex Christiansen on 06-30-2023 Thin prep Papanicolaou smear with manual screening 7 U/L 15-37 [facility] Thin prep Papanicolaou smear with manual screening 8 5-15 [facility] Absolute lymphocyte countOrd ered By: Drew Hinson on 06-28-2023 Lymphocytes Auto (Unsp spec) [#/Vol] 2.31 10*3/uL 0.83-4.51 [facility] Basophil percentageOrdered B y: Drew Hinson on 06-28-2023 Basophil percentage 0-5 SEEN /hpf 0-[address] [facility] Basophil percentage 221 mg/dL 74-106 [facility] Basophil percentage 9.3 g/dL 6.4-8.2 [facility] Basophil percentage 0.60 mg/dL 0.20-1.00 [facility] Basophil percentage 136 mmol/L 136-145 [facility] Basophil percentage 3.2 mmol/L 3.5-5.1 [facility] Basophil percentage 102 mmol/L 98-107 [facility] Basophils (Bld) [#/Vol] 9.2 10*3/uL 4.4-11.0 [facility] Basophils (Bld) [#/Vol] 6.4 10*3/uL 2.0-7.7 [facility] Basophils/100 WBC (Bld) 0.5 % 0-1 [facility] Basophils/100 WBC (Bld) 69.1 % 47-70 [facility] Basophils/100 WBC (Bld) 0.1 % 0-5 [facility] Bilirubin [Mass/Vol] 0.60 mg/dL 0.20-1.00 [facility] Comment on above: For patients on eltr ombopag therapy, use of [employer] TBIL is not recommended. Chloride [Moles/Vol] 102 mmol/L 98-107 [facility] Eosinophils/100 WBC (Bld) 0.1 % 0-5 [facility] Glucose [Mass/Vol] 221 mg/dL 74-106 [facility] Comment on above: Glucose result great er than or equal to 200 mg/dLsuggests DIABETES MELLITUS per A.D.A. criteria. Neutrophils (Bld) [#/Vol] 6.4 10*3/uL 2.0-7.7 [facility] Neutrophils/100 WBC (Bld) 69.1 % 47-70 [facility] Potassium [Moles/Vol] 3.2 mmol/L 3.5-5.1 [facility] Protein [Mass/Vol] 9.3 g/dL 6.4-8.2 [facility] Sodium [Moles/Vol] 136 mmol/L 136-145 [facility] WBC (Bld) [#/Vol] 9.2 10*3/uL 4.4-11.0 [facility] Bilirubin Test strip Ql (U)O rdered By: Drew Hinson on 06-28-2023 Bilirubin Ql (U) 1 mg/dL Negative [facility] Comment on above: COLOR OF URINE MAY A FFECT DIPSTICK RESULTS. Blood erythrocytes count (nu mber/volume)Ordered By: Drew Hinson on 06-28-2023 RBC (Bld) [#/Vol] 4.85 10*6/uL 4.2-5.4 [facility] Blood hemoglobin measurement (mass/volume)Ordered By: Drew Hinson on 06-28-2023 Hemoglobin (Bld) [Mass/Vol] 13.0 g/dL 12.0-15.0 [facility] Blood lymphocytes/100 leukoc ytesOrdered By: Drew Hinson on 06-28-2023 Lymphocytes/100 WBC (Bld) 25.1 % 19-41 [facility] Blood monocytes/100 leukocyt esOrdered By: Drew Hinson on 06-28-2023 Monocytes/100 WBC (Bld) 4.8 % 0-10 [facility] Blood platelet mean volumeOr dered By: Drew Hinson on 06-28-2023 Platelet mean volume (Bld) [Entitic vol] 8.9 fL 6.2-12.0 [facility] Determination of erythrocyte mean corpuscular volume (MCV)Ordered By: Drew Hinson on 06-28-2023 MCV (RBC) [Entitic vol] 83.7 fL 81-99 [facility] Hematocrit Auto (Bld) [Volum e fraction]Ordered By: Drew Hinson on 06-28-2023 Hematocrit (Bld) [Volume fraction] 40.6 % 37-47 [facility] Ketones Test strip Ql (U)Ord ered By: Drew Hinson on 06-28-2023 Ketones Ql (U) 50 mg/dl Negative [facility] Laboratory - Chemistry and C hemistry - challengeOrdered By: Drew Hinson on 06-28-2023 ALP [Catalytic activity/Vol] 128 U/L 45-117 [facility] ALT [Catalytic activity/Vol] 13 U/L 13-56 [facility] CO2 [Moles/Vol] 25.0 mmol/L 21.0-32.0 [facility] Globulin (S) [Mass/Vol] 5.4 g/dL 2.2-4.2 [facility] Lipase [Catalytic activity/Vol] 28 U/L 13-75 [facility] Comment on above: Please note:LIPASE r evised reference range effective 22. New Lipase methodology. Expected to produce lower values than the previous assay method. NEW Reference Range: 13 - 75 U/L Urea nitrogen/Creatinine [Mass ratio] 11.7 mg/mg 10-20 [facility] Laboratory - Hematology and Cell countsOrdered By: Drew Hinson on 06-28-2023 Erythrocyte distribution width (RBC) [Entitic vol] 41.7 fL 35.1-43.9 [facility] Erythrocyte distribution width (RBC) [Ratio] 13.6 % 11.6-14.6 [facility] Immature granulocytes/100 WBC (Bld) 0.400 % 0.0-0.9 [facility] Comment on above: IG% - Immature Granu locytes (promyelocytes, myelocytes and metamyelocytes) > 1% indicates that a LEFT SHIFT is Present. MCH (RBC) [Entitic mass] 26.8 pg 27.0-32.0 [facility] Nucleated RBC/100 WBC (Bld) [Ratio] 0 % 0-5 [facility] MCHC Auto (RBC) [Mass/Vol]Or dered By: Drew Hinson on 06-28-2023 MCHC (RBC) [Mass/Vol] 32.0 g/dL 32-36 [facility] Mucus LM Ql (Urine sed)Order ed By: Drew Hinson on 06-28-2023 Mucus Ql (Urine sed) 1+ /hpf [facility] Nitrite Test strip Ql (U)Ord ered By: Drew Hinson on 06-28-2023 Nitrite Ql (U) Negative Negative [facility] No Panel InformationOrdered By: Drew Hinson on 06-28-2023 Estimated Creatinine Clearance Calc 81.18 ml/min [facility] Estimated GFR (MDRD) Amer 89 mL/min >60 [facility] Comment on above: GFR Calc Estimated GFR (MDRD) Non-Af Amer 74 mL/min >60 [facility] Comment on above: Non- GFR Calc 26.8 pg 27.0-32.0 [facility] 13.6 % 11.6-14.6 [facility] 41.7 fl 35.1-43.9 [facility] 0.400 % 0.0-0.9 [facility] 0 % 0-5 [facility] 74 mL/min >60 [facility] 89 mL/min >60 [facility] 81.18 ml/min [facility] 11.7 RATIO 10-20 [facility] 5.4 g/dL 2.2-4.2 [facility] 28 U/L 13-75 [facility] 128 U/L 45-117 [facility] 13 U/L 13-56 [facility] 25.0 mmol/L 21.0-32.0 [facility] Platelets bldOrdered By: Dwight Hinson on 06-28-2023 Platelets (Bld) [#/Vol] 491 10*3/uL 150-450 [facility] Protein Test strip Ql (U)Ord ered By: Drew Hinson on 06-28-2023 Protein Ql (U) 30 mg/dl Negative [facility] Serum or plasma albumin hussein urement (mass/volume)Ordered By: Drew Hinson on 06-28-2023 Albumin [Mass/Vol] 3.9 g/dL 3.2-5.0 [facility] Serum or plasma albumin/glob ulin mass ratioOrdered By: Drew Hinson on 06-28-2023 Albumin/Globulin [Mass ratio] 0.7 {ratio} 0.9-2.4 [facility] Serum or plasma calcium hussein urement (mass/volume)Ordered By: Drew Hinson on 06-28-2023 Calcium [Mass/Vol] 9.6 mg/dL 8.5-10.1 [facility] Serum or plasma creatinine m easurement (mass/volume)Ordered By: Drew Hinson on 06-28-2023 Creatinine [Mass/Vol] 0.94 mg/dL 0.55-1.02 [facility] Comment on above: The validity of the calculated GFR & GFRAA in patients over 70 years has not been determined. Clinical correlation is essential. Serum or plasma urea nitroge n measurement (mass/volume)Ordered By: Drew Hinson on 06-28-2023 Urea nitrogen [Mass/Vol] 11 mg/dL 7-18 [facility] Squamous epithelial cells de tection in urine sediment by light microscopyOrdered By: Drew Hinson on 06-28-2023 Epithelial cells.squamous LM Ql (Urine sed) 5-10 SEEN /hpf 5-10 [facility] Thin prep Papanicolaou smear with manual screeningOrdered By: Drew Hinson on 06-28-2023 Thin prep Papanicolaou smear with manual screening 11 U/L 15-37 [facility] Thin prep Papanicolaou smear with manual screening 9 5-15 [facility] Urine blood detectionOrdered By: Drew Hinson on 06-28-2023 RBC Ql (U) 25 /ul Negative [facility] RBC Ql (U) 0-5 SEEN /hpf 0-5 [facility] Urine clarityOrdered By: Dwight Hinson on 06-28-2023 Clarity (U) Cloudy Clear [facility] Urine color determinationOrd ered By: Drew Hinson on 06-28-2023 Color (U) Yellow Yellow [facility] Urine glucose detectionOrder ed By: Drew Hinson on 06-28-2023 Glucose Ql (U) 50 mg/dl Normal [facility] Urine leukocyte esterase det ection by dipstickOrdered By: Drew Hinson on 06-28-2023 Leukocyte esterase Test strip Ql (U) 25 /ul Negative [facility] Urine pHOrdered By: Drew castellanos on 06-28-2023 pH (U) 6.0 [pH] 5.0 - 8.0 [facility] Urine sediment bacteria coun t by microscopy (number/high power field)Ordered By: Drew Hinson on 06-28-2023 Bacteria LM.HPF (Urine sed) [#/Area] 2 /[HPF] None Seen [facility] Urine specific gravity measu rementOrdered By: Drew Hinson on 06-28-2023 Specific gravity (U) [Rel density] 1.020 1.002-1.030 [facility] Urobilinogen Auto test strip Ql (U)Ordered By: Drew Hinson on 06-28-2023 Urobilinogen Ql (U) 1 mg/dl Normal [facility] Absolute lymphocyte countOrd ered By: Taiwo Chen on 06-26-2023 Lymphocytes Auto (Unsp spec) [#/Vol] 2.63 10*3/uL 0.83-4.51 [facility] Basophil percentageOrdered B y: Taiwo Chen on 06-26-2023 Basophil percentage 228 mg/dL 74-106 [facility] Basophil percentage 8.4 g/dL 6.4-8.2 [facility] Basophil percentage 0.30 mg/dL 0.20-1.00 [facility] Basophil percentage 136 mmol/L 136-145 [facility] Basophil percentage 3.8 mmol/L 3.5-5.1 [facility] Basophil percentage 102 mmol/L 98-107 [facility] Basophils (Bld) [#/Vol] 8.6 10*3/uL 4.4-11.0 [facility] Basophils (Bld) [#/Vol] 5.5 10*3/uL 2.0-7.7 [facility] Basophils/100 WBC (Bld) 0.6 % 0-1 [facility] Basophils/100 WBC (Bld) 63.6 % 47-70 [facility] Basophils/100 WBC (Bld) 0.2 % 0-5 [facility] Bilirubin [Mass/Vol] 0.30 mg/dL 0.20-1.00 [facility] Comment on above: For patients on eltr ombopag therapy, use of [employer] TBIL is not recommended. Chloride [Moles/Vol] 102 mmol/L 98-107 [facility] Eosinophils/100 WBC (Bld) 0.2 % 0-5 [facility] Glucose [Mass/Vol] 228 mg/dL 74-106 [facility] Comment on above: Glucose result great er than or equal to 200 mg/dLsuggests DIABETES MELLITUS per A.D.A. criteria. Neutrophils (Bld) [#/Vol] 5.5 10*3/uL 2.0-7.7 [facility] Neutrophils/100 WBC (Bld) 63.6 % 47-70 [facility] Potassium [Moles/Vol] 3.8 mmol/L 3.5-5.1 [facility] Protein [Mass/Vol] 8.4 g/dL 6.4-8.2 [facility] Sodium [Moles/Vol] 136 mmol/L 136-145 [facility] WBC (Bld) [#/Vol] 8.6 10*3/uL 4.4-11.0 [facility] Blood erythrocytes count (nu mber/volume)Ordered By: Taiwo Chen on 06-26-2023 RBC (Bld) [#/Vol] 4.31 10*6/uL 4.2-5.4 [facility] Blood hemoglobin measurement (mass/volume)Ordered By: Taiwo Chen on 06-26-2023 Hemoglobin (Bld) [Mass/Vol] 11.6 g/dL 12.0-15.0 [facility] Blood lymphocytes/100 leukoc ytesOrdered By: Taiwo Chen on 06-26-2023 Lymphocytes/100 WBC (Bld) 30.6 % 19-41 [facility] Blood monocytes/100 leukocyt esOrdered By: Taiwo Chen on 06-26-2023 Monocytes/100 WBC (Bld) 4.3 % 0-10 [facility] Blood platelet mean volumeOr dered By: Taiwo Chen on 06-26-2023 Platelet mean volume (Bld) [Entitic vol] 9.3 fL 6.2-12.0 [facility] Determination of erythrocyte mean corpuscular volume (MCV)Ordered By: Taiwo Chen on 06-26-2023 MCV (RBC) [Entitic vol] 84.7 fL 81-99 [facility] Hematocrit Auto (Bld) [Volum e fraction]Ordered By: Taiwo Chen on 06-26-2023 Hematocrit (Bld) [Volume fraction] 36.5 % 37-47 [facility] Laboratory - Chemistry and C hemistry - challengeOrdered By: Taiwo Chen on 06-26-2023 ALP [Catalytic activity/Vol] 135 U/L 45-117 [facility] ALT [Catalytic activity/Vol] 15 U/L 13-56 [facility] CO2 [Moles/Vol] 26.0 mmol/L 21.0-32.0 [facility] Globulin (S) [Mass/Vol] 5.0 g/dL 2.2-4.2 [facility] Urea nitrogen/Creatinine [Mass ratio] 11.4 mg/mg 10- [facility] - Hematology and Cell countsOrdered By: Taiwo Chen on 06-26-2023 Erythrocyte distribution width (RBC) [Entitic vol] 42.7 fL 35.1-43.9 [facility] Erythrocyte distribution width (RBC) [Ratio] 13.7 % 11.6-14.6 [facility] Immature granulocytes/100 WBC (Bld) 0.700 % 0.0-0.9 [facility] Comment on above: IG% - Immature Granu locytes (promyelocytes, myelocytes and metamyelocytes) > 1% indicates that a LEFT SHIFT is Present. MCH (RBC) [Entitic mass] 26.9 pg 27.0-32.0 [facility] Nucleated RBC/100 WBC (Bld) [Ratio] 0 % 0-5 [facility] MCHC Auto (RBC) [Mass/Vol]Or dered By: Taiwo Chen on 06-26-2023 MCHC (RBC) [Mass/Vol] 31.8 g/dL 32-36 [facility] No Panel InformationOrdered By: Taiwo Chen on 06-26-2023 Estimated Creatinine Clearance Calc 86.71 ml/min [facility] Estimated GFR (MDRD) Amer 97 mL/min >60 [facility] Comment on above: GFR Calc Estimated GFR (MDRD) Non-Af Amer 80 mL/min >60 [facility] Comment on above: Non- GFR Calc 26.9 pg 27.0-32.0 [facility] 13.7 % 11.6-14.6 [facility] 42.7 fl 35.1-43.9 [facility] 0.700 % 0.0-0.9 [facility] 0 % 0-5 [facility] 80 mL/min >60 [facility] 97 mL/min >60 [facility] 86.71 ml/min [facility] 11.4 RATIO 10- [facility] 5.0 g/dL 2.2-4.2 [facility] 135 U/L 45-117 [facility] 15 U/L 13-56 [facility] 26.0 mmol/L 21.0-32.0 [facility] Platelets bldOrdered By: Liss goldberg April on 06-26-2023 Platelets (Bld) [#/Vol] 464 10*3/uL 150-450 [facility] Serum or plasma albumin hussein urement (mass/volume)Ordered By: Taiwo Chen on 06-26-2023 Albumin [Mass/Vol] 3.4 g/dL 3.2-5.0 [facility] Serum or plasma albumin/glob ulin mass ratioOrdered By: Taiwo Chen on 06-26-2023 Albumin/Globulin [Mass ratio] 0.7 {ratio} 0.9-2.4 [facility] Serum or plasma calcium hussein urement (mass/volume)Ordered By: Taiwo Chen on 06-26-2023 Calcium [Mass/Vol] 9.5 mg/dL 8.5-10.1 [facility] Serum or plasma creatinine m easurement (mass/volume)Ordered By: Taiwo Chen on 06-26-2023 Creatinine [Mass/Vol] 0.88 mg/dL 0.55-1.02 [facility] Comment on above: The validity of the calculated GFR & GFRAA in patients over 70 years has not been determined. Clinical correlation is essential. Serum or plasma urea nitroge n measurement (mass/volume)Ordered By: Taiwo Chen on 06-26-2023 Urea nitrogen [Mass/Vol] 10 mg/dL 7-18 [facility] Thin prep Papanicolaou smear with manual screeningOrdered By: Taiwo Chen on 06-26-2023 Thin prep Papanicolaou smear with manual screening 8 U/L 15-37 [facility] Thin prep Papanicolaou smear with manual screening 8 5-15 [facility] Absolute lymphocyte countOrd ered By: Tesfaye Mitchell on 06-25-2023 Lymphocytes Auto (Unsp spec) [#/Vol] 2.74 10*3/uL 0.83-4.51 [facility] Basophil percentageOrdered B y: Tesafye Mitchell on 06-25-2023 Basophil percentage 259 mg/dL 74-106 [facility] Basophil percentage 8.7 g/dL 6.4-8.2 [facility] Basophil percentage 0.40 mg/dL 0.20-1.00 [facility] Basophil percentage 137 mmol/L 136-145 [facility] Basophil percentage 4.0 mmol/L 3.5-5.1 [facility] Basophil percentage 103 mmol/L 98-107 [facility] Basophils (Bld) [#/Vol] 11.7 10*3/uL 4.4-11.0 [facility] Basophils (Bld) [#/Vol] 8.5 10*3/uL 2.0-7.7 [facility] Basophils/100 WBC (Bld) 0.4 % 0-1 [facility] Basophils/100 WBC (Bld) 72.6 % 47-70 [facility] Basophils/100 WBC (Bld) 0.0 % 0-5 [facility] Bilirubin [Mass/Vol] 0.40 mg/dL 0.20-1.00 [facility] Comment on above: For patients on eltr ombopag therapy, use of [employer] TBIL is not recommended. Chloride [Moles/Vol] 103 mmol/L 98-107 [facility] Eosinophils/100 WBC (Bld) 0.0 % 0-5 [facility] Glucose [Mass/Vol] 259 mg/dL 74-106 [facility] Comment on above: Glucose result great er than or equal to 200 mg/dLsuggests DIABETES MELLITUS per A.D.A. criteria. Neutrophils (Bld) [#/Vol] 8.5 10*3/uL 2.0-7.7 [facility] Neutrophils/100 WBC (Bld) 72.6 % 47-70 [facility] Potassium [Moles/Vol] 4.0 mmol/L 3.5-5.1 [facility] Protein [Mass/Vol] 8.7 g/dL 6.4-8.2 [facility] Sodium [Moles/Vol] 137 mmol/L 136-145 [facility] WBC (Bld) [#/Vol] 11.7 10*3/uL 4.4-11.0 [facility] Basophil percentage 0-5 SEEN /hpf 0-[address] [facility] Bilirubin Test strip Ql (U)O rdered By: Tesfaye Mitchell on 06-25-2023 Bilirubin Ql (U) Negative Negative [facility] Blood erythrocytes count (nu mber/volume)Ordered By: Tesfaye Mitchell on 06-25-2023 RBC (Bld) [#/Vol] 4.53 10*6/uL 4.2-5.4 [facility] Blood hemoglobin measurement (mass/volume)Ordered By: Tesfaye Mitchell on 06-25-2023 Hemoglobin (Bld) [Mass/Vol] 12.0 g/dL 12.0-15.0 [facility] Blood lymphocytes/100 leukoc ytesOrdered By: Tesfaye Mitchell on 06-25-2023 Lymphocytes/100 WBC (Bld) 23.5 % 19-41 [facility] Blood monocytes/100 leukocyt esOrdered By: Tesfaye Mitchell on 06-25-2023 Monocytes/100 WBC (Bld) 2.9 % 0-10 [facility] Blood platelet mean volumeOr dered By: Tesfaye Mitchell on 06-25-2023 Platelet mean volume (Bld) [Entitic vol] 9.1 fL 6.2-12.0 [facility] Determination of erythrocyte mean corpuscular volume (MCV)Ordered By: Tesfaye Mitchell on 06-25-2023 MCV (RBC) [Entitic vol] 84.3 fL 81-99 [facility] Hematocrit Auto (Bld) [Volum e fraction]Ordered By: Tesfaye Mitchell on 06-25-2023 Hematocrit (Bld) [Volume fraction] 38.2 % 37-47 [facility] Ketones Test strip Ql (U)Ord ered By: Tesfaye Mitchell on 06-25-2023 Ketones Ql (U) 15 mg/dl Negative [facility] Laboratory - Chemistry and C hemistry - challengeOrdered By: Tesfaye Mitchell on 06-25-2023 ALP [Catalytic activity/Vol] 156 U/L 45-117 [facility] ALT [Catalytic activity/Vol] 15 U/L -56 [facility] CO2 [Moles/Vol] 24.0 mmol/L 21.0-32.0 [facility] Globulin (S) [Mass/Vol] 5.4 g/dL 2.2-4.2 [facility] Lipase [Catalytic activity/Vol] 32 U/L -75 [facility] Comment on above: Please note:LIPASE r evised reference range effective 22. New Lipase methodology. Expected to produce lower values than the previous assay method. NEW Reference Range: 13 - 75 U/L Urea nitrogen/Creatinine [Mass ratio] 15.7 mg/mg 10-20 [facility] Laboratory - Drug toxicology Ordered By: Tesfaye Mitchell on 06-25-2023 Amphetamines Ql (U) Negative <1000 ng/mL [facility] Benzodiazepines Ql (U) Negative < 200 ng/mL [facility] Cannabinoids Screen Ql (U) Negative < 50 ng/mL [facility] Cocaine Ql (U) Negative < 300 ng/mL [facility] Opiates Ql (U) Negative < 300 ng/mL [facility] [facility] - Hematology and Cell countsOrdered By: Tesfaye Mitchell on 06-25-2023 Erythrocyte distribution width (RBC) [Entitic vol] 42.4 fL 35.1-43.9 [facility] Erythrocyte distribution width (RBC) [Ratio] 13.7 % 11.6-14.6 [facility] Immature granulocytes/100 WBC (Bld) 0.600 % 0.0-0.9 [facility] Comment on above: IG% - Immature Granu locytes (promyelocytes, myelocytes and metamyelocytes) > 1% indicates that a LEFT SHIFT is Present. MCH (RBC) [Entitic mass] 26.5 pg 27.0-32.0 [facility] Nucleated RBC/100 WBC (Bld) [Ratio] 0 % 0-5 [facility] MCHC Auto (RBC) [Mass/Vol]Or dered By: Tesfaye Mitchell on 06-25-2023 MCHC (RBC) [Mass/Vol] 31.4 g/dL 32-36 [facility] Mucus LM Ql (Urine sed)Order ed By: Tesfaye Mitchell on 06-25-2023 Mucus Ql (Urine sed) 0 SEEN /hpf [facility] Nitrite Test strip Ql (U)Ord ered By: Tesfaye Mitchell on 06-25-2023 Nitrite Ql (U) Negative Negative [facility] No Panel InformationOrdered By: Tesfaye Mitchell on 06-25-2023 Estimated Creatinine Clearance Calc 91.94 ml/min [facility] Estimated GFR (MDRD) Amer 103 mL/min >60 [facility] Comment on above: GFR Calc Estimated GFR (MDRD) Non-Af Amer 85 mL/min >60 [facility] Comment on above: Non- GFR Calc 26.5 pg 27.0-32.0 [facility] 13.7 % 11.6-14.6 [facility] 42.4 fl 35.1-43.9 [facility] 0.600 % 0.0-0.9 [facility] 0 % 0-5 [facility] 85 mL/min >60 [facility] 103 mL/min >60 [facility] 91.94 ml/min [facility] 15.7 RATIO 10-20 [facility] 5.4 g/dL 2.2-4.2 [facility] 32 U/L 13-75 [facility] 156 U/L 45-117 [facility] 15 U/L 13-56 [facility] 24.0 mmol/L 21.0-32.0 [facility] MDMA (Ecstasy) Screen Positive < 500 ng/mL [facility] Urine Barbiturates Screen Negative < 200 ng/mL [facility] Urine Drug Screen Comment [facility] Comment on above: CONFIRMATORY TESTING FOR ALL POSITIVE URINE DRUG SCREENRESULTS WILL ONLY BE SENT OUT UPON PHYSICIAN ORDER. VISTA Urine Drug Screen methods provide only preliminaryanalytical test results. A more specific alternate chemicalmethod must be used in order to obtain a confirmedanalytical result. Gas chromatography/mass spectrometery(GC/MS) is the preferred confirmatory method. Clinicalconsideration and professional judgement should be appliedto any drug of abuse test result, particularly whenpreliminary positive results are used. URINE TCA TESTING MUST BE ORDERED SEPARATELY. USE TESTMNEMONIC: [facility] Urine Methadone Screen Negative < 300 ng/mL [facility] Negative < 50 ng/mL [facility] Positive < 500 ng/mL [facility] Platelets bldOrdered By: Mauro Mitchell on 06-25-2023 Platelets (Bld) [#/Vol] 497 10*3/uL 150-450 [facility] Protein Test strip Ql (U)Ord ered By: Tesfaye Mitchell on 06-25-2023 Protein Ql (U) 30 mg/dl Negative [facility] Serum or plasma albumin hussein urement (mass/volume)Ordered By: Tesfaye Mitchell on 06-25-2023 Albumin [Mass/Vol] 3.3 g/dL 3.2-5.0 [facility] Serum or plasma albumin/glob ulin mass ratioOrdered By: Tesfaye Mitchell on 06-25-2023 Albumin/Globulin [Mass ratio] 0.6 {ratio} 0.9-2.4 [facility] Serum or plasma calcium hussein urement (mass/volume)Ordered By: Tesfaye Mitchell on 06-25-2023 Calcium [Mass/Vol] 9.6 mg/dL 8.5-10.1 [facility] Serum or plasma creatinine m easurement (mass/volume)Ordered By: Tesfaye Mitchell on 06-25-2023 Creatinine [Mass/Vol] 0.83 mg/dL 0.55-1.02 [facility] Comment on above: The validity of the calculated GFR & GFRAA in patients over 70 years has not been determined. Clinical correlation is essential. Serum or plasma urea nitroge n measurement (mass/volume)Ordered By: Tesfaye Mitchell on 06-25-2023 Urea nitrogen [Mass/Vol] 13 mg/dL 7-18 [facility] Squamous epithelial cells de tection in urine sediment by light microscopyOrdered By: Tesfaye Mitchell on 06-25-2023 Epithelial cells.squamous LM Ql (Urine sed) 5-10 SEEN /hpf 5-10 [facility] Thin prep Papanicolaou smear with manual screeningOrdered By: Tesfaye Mitchell on 06-25-2023 Thin prep Papanicolaou smear with manual screening 14 U/L 15-37 [facility] Thin prep Papanicolaou smear with manual screening 10 5-15 [facility] Urine blood detectionOrdered By: Tesfaye Mitchell on 06-25-2023 RBC Ql (U) 250 /ul Negative [facility] RBC Ql (U) > 100 SEEN /hpf 0-5 [facility] Urine clarityOrdered By: Mauro Mitchell on 06-25-2023 Clarity (U) Sl. Cloudy Clear [facility] Urine color determinationOrd ered By: Tesfaye Mitchell on 06-25-2023 Color (U) Yellow Yellow [facility] Urine glucose detectionOrder ed By: Tesfaye Mitchell on 06-25-2023 Glucose Ql (U) 250 mg/dl Normal [facility] Urine leukocyte esterase det ection by dipstickOrdered By: Tesfaye Mitchell on 06-25-2023 Leukocyte esterase Test strip Ql (U) 25 /ul Negative [facility] Urine pHOrdered By: Tesfaye figueroa on 06-25-2023 pH (U) 7.0 [pH] 5.0 - 8.0 [facility] Urine phencyclidine (PCP) de tectionOrdered By: Tesfaye Mitchell on 06-25-2023 Phencyclidine Ql (U) Negative < 25 ng/mL [facility] Urine sediment bacteria coun t by microscopy (number/high power field)Ordered By: Tesfaye Mitchell on 06-25-2023 Bacteria LM.HPF (Urine sed) [#/Area] 0 /[HPF] None Seen [facility] Urine specific gravity measu rementOrdered By: Tesfaye Mitchell on 06-25-2023 Specific gravity (U) [Rel density] 1.010 1.002-1.030 [facility] Urobilinogen Auto test strip Ql (U)Ordered By: Tesfaye Mitchell on 06-25-2023 Urobilinogen Ql (U) Normal mg/dl Normal [facility] Anaerobic cultureOrdered By: Abdirizak Forrest on 05-18-2023 Bacteria identified Anaer cx Nom (Unsp spec) No anaerobic bacteria isolated. [facility] Bacteria identified Cx Nom ( Wound)Ordered By: Abdirizak Forrest on 05-18-2023 Wound Culture Meth. resistant Stap h. aureus [facility] Routine wound culture Meth. resistant St aph. aureus [facility] Fungus cultureOrdered By: Neva [facility] on 05-18-2023 Fungus identified Cx Nom (Unsp spec) [facility] Gram stain for investigation of transfusion reactionOrdered By: Abdirizak Forrest on 05-18-2023 Microscopic observation Gram stain Nom (Unsp spec) [facility] Glucose Glucometer (BldC) [M ass/Vol]Ordered By: Rickey Gifford on 05-09-2023 Glucose [Mass/Vol] 157 mg/dL 74-106 [facility] Comment on above: MANAGEMENT OF PATIEN T CARE PER NURSING PROTOCOL Basophil percentageOrdered B y: Rickey Gifford on 05-07-2023 Basophil percentage 161 mg/dL 74-106 [facility] Basophil percentage 138 mmol/L 136-145 [facility] Basophil percentage 4.0 mmol/L 3.5-5.1 [facility] Basophil percentage 108 mmol/L 98-107 [facility] Chloride [Moles/Vol] 108 mmol/L 98-107 [facility] Glucose [Mass/Vol] 161 mg/dL 74-106 [facility] Comment on above: Fasting Glucose resu lt greater than or equal to 126 mg/dL suggests DIABETES MELLITUS per A.D.A. criteria. Potassium [Moles/Vol] 4.0 mmol/L 3.5-5.1 [facility] Sodium [Moles/Vol] 138 mmol/L 136-145 [facility] - Chemistry and C hemistry - challengeOrdered By: Rickey Gifford on 05-07-2023 CO2 [Moles/Vol] 26.0 mmol/L 21.0-32.0 [facility] Urea nitrogen/Creatinine [Mass ratio] 17.1 mg/mg 04-30 [facility] No Panel InformationOrdered By: Rickey Gifford on 05-07-2023 Estimated Creatinine Clearance Calc 131.56 ml/min [facility] Estimated GFR (MDRD) Amer 154 mL/min >60 [facility] Comment on above: GFR Calc Estimated GFR (MDRD) Non-Af Amer 127 mL/min >60 [facility] Comment on above: Non- GFR Calc 127 mL/min >60 [facility] 154 mL/min >60 [facility] 131.56 ml/min [facility] 17.1 RATIO 04-30 [facility] 26.0 mmol/L 21.0-32.0 [facility] Serum or plasma calcium hussein urement (mass/volume)Ordered By: Rickey Gifford on 05-07-2023 Calcium [Mass/Vol] 8.4 mg/dL 8.5-10.1 [facility] Serum or plasma creatinine m easurement (mass/volume)Ordered By: Rickey Gifford on 05-07-2023 Creatinine [Mass/Vol] 0.58 mg/dL 0.55-1.02 [facility] Comment on above: The validity of the calculated GFR & GFRAA in patients over 70 years has not been determined. Clinical correlation is essential. Serum or plasma urea nitroge n measurement (mass/volume)Ordered By: Rickey Gifford on 05-07-2023 Urea nitrogen [Mass/Vol] 10 mg/dL 7-18 [facility] Thin prep Papanicolaou smear with manual screeningOrdered By: Rickeyronal Gifford on 05-07-2023 Thin prep Papanicolaou smear with manual screening 4 5-15 [facility] Absolute lymphocyte countOrd ered By: Rickey Gifford on 05-06-2023 Lymphocytes Auto (Unsp spec) [#/Vol] 2.89 10*3/uL 0.83-4.51 [facility] Basophil percentageOrdered B y: Rickey Gifford on 05-06-2023 Basophils (Bld) [#/Vol] 5.8 10*3/uL 4.4-11.0 [facility] Basophils (Bld) [#/Vol] 2.4 10*3/uL 2.0-7.7 [facility] Basophils/100 WBC (Bld) 40.5 % 47-70 [facility] Basophils/100 WBC (Bld) 0.3 % 0-5 [facility] Basophils/100 WBC (Bld) 0.5 % 0-1 [facility] Eosinophils/100 WBC (Bld) 0.3 % 0-5 [facility] Neutrophils (Bld) [#/Vol] 2.4 10*3/uL 2.0-7.7 [facility] Neutrophils/100 WBC (Bld) 40.5 % 47-70 [facility] WBC (Bld) [#/Vol] 5.8 10*3/uL 4.4-11.0 [facility] Blood erythrocytes count (nu mber/volume)Ordered By: Rickey Gifford on 05-06-2023 RBC (Bld) [#/Vol] 3.54 10*6/uL 4.2-5.4 [facility] Blood hemoglobin measurement (mass/volume)Ordered By: Rickey Gifford on 05-06-2023 Hemoglobin (Bld) [Mass/Vol] 10.1 g/dL 12.0-15.0 [facility] Blood lymphocytes/100 leukoc ytesOrdered By: Rickey Gifford on 05-06-2023 Lymphocytes/100 WBC (Bld) 49.6 % 19-41 [facility] Blood monocytes/100 leukocyt esOrdered By: Rickey Gifford on 05-06-2023 Monocytes/100 WBC (Bld) 8.4 % 0-10 [facility] Blood platelet mean volumeOr dered By: Rickey Gifford on 05-06-2023 Platelet mean volume (Bld) [Entitic vol] 9.4 fL 6.2-12.0 [facility] Determination of erythrocyte mean corpuscular volume (MCV)Ordered By: Rickey Gifford on 05-06-2023 MCV (RBC) [Entitic vol] 92.7 fL 81-99 [facility] Hematocrit Auto (Bld) [Volum e fraction]Ordered By: Rickey Gifford on 05-06-2023 Hematocrit (Bld) [Volume fraction] 32.8 % 37-47 [facility] - Hematology and Cell countsOrdered By: Rickey Gifford on 05-06-2023 Erythrocyte distribution width (RBC) [Entitic vol] 54.6 fL 35.1-43.9 [facility] Erythrocyte distribution width (RBC) [Ratio] 15.9 % 11.6-14.6 [facility] Immature granulocytes/100 WBC (Bld) 0.700 % 0.0-0.9 [facility] Comment on above: IG% - Immature Granu locytes (promyelocytes, myelocytes and metamyelocytes) > 1% indicates that a LEFT SHIFT is Present. MCH (RBC) [Entitic mass] 28.5 pg 27.0-32.0 [facility] Nucleated RBC/100 WBC (Bld) [Ratio] 0 % 0-5 [facility] MCHC Auto (RBC) [Mass/Vol]Or dered By: Rickey Gifford on 05-06-2023 MCHC (RBC) [Mass/Vol] 30.8 g/dL 32-36 [facility] No Panel InformationOrdered By: Rickey Gifford on 05-06-2023 28.5 pg 27.0-32.0 [facility] 15.9 % 11.6-14.6 [facility] 54.6 fl 35.1-43.9 [facility] 0.700 % 0.0-0.9 [facility] 0 % 0-5 [facility] Platelets bldOrdered By: Ivy Gifford on 05-06-2023 Platelets (Bld) [#/Vol] 317 10*3/uL 150-450 [facility] Serum or plasma trough vanco mycin levelOrdered By: Rickey Gifford on 05-05-2023 Vancomycin trough [Mass/Vol] 15.1 ug/mL 5.0-15.0 [facility] Comment on above: VANCOMYCIN STANDARED DRUG THERAPY TROUGH LEVEL: 5.0 - 15.0 mg/L VANCOMYCIN HIGH INTENSITY THERAPY TROUGH LEVEL: 15.0 - 20.0 mg/L High Intensity therapy recommended for serious lifethreatening infections include:- Eliftorzoc-Khrmbdnmmcib-Rytfhpayd (Ventilator/Healtcare Associated)-Sepsis PLEASE CONTACT PHARMACY SERVICES (#5301) FOR INTERPRETATIONOF RESULTS. Absolute lymphocyte countOrd ered By: Javy Doss on 05-04-2023 Lymphocytes Auto (Unsp spec) [#/Vol] 1.65 10*3/uL 0.83-4.51 [facility] Bacteria identified Anaer cx Nom (Unsp spec)Ordered By: Abdirizak Forrest on 05-04-2023 Anaerobic Culture Bacteroides fragilis [facility] Bacteria identified Cx Nom ( Wound)Ordered By: Abdirizak Forrest on 05-04-2023 Wound Culture Streptococcus dysgalactiae dys [facility] Routine wound culture Streptococcus dysgalactiae dys [facility] Basophil percentageOrdered B y: Javy Doss on 05-04-2023 Basophil percentage 207 mg/dL 74-106 [facility] Basophil percentage 133 mmol/L 136-145 [facility] Basophil percentage 3.8 mmol/L 3.5-5.1 [facility] Basophil percentage 102 mmol/L 98-107 [facility] Basophil percentage 1.9 mmol/L 0.4-2.0 [facility] Basophils (Bld) [#/Vol] 11.1 10*3/uL 4.4-11.0 [facility] Basophils (Bld) [#/Vol] 8.1 10*3/uL 2.0-7.7 [facility] Basophils/100 WBC (Bld) 73.2 % 47-70 [facility] Basophils/100 WBC (Bld) 0.0 % 0-5 [facility] Basophils/100 WBC (Bld) 0.4 % 0-1 [facility] Lactate [Moles/Vol] 1.9 mmol/L 0.4-2.0 [facility] Blood erythrocytes count (nu mber/volume)Ordered By: Javy Doss on 05-04-2023 RBC (Bld) [#/Vol] 3.68 10*6/uL 4.2-5.4 [facility] Blood hemoglobin measurement (mass/volume)Ordered By: Javy Doss on 05-04-2023 Hemoglobin (Bld) [Mass/Vol] 10.5 g/dL 12.0-15.0 [facility] Blood lymphocytes/100 leukoc ytesOrdered By: Javy Doss on 05-04-2023 Lymphocytes/100 WBC (Bld) 14.9 % 19-41 [facility] Blood monocytes/100 leukocyt esOrdered By: Javy Doss on 05-04-2023 Monocytes/100 WBC (Bld) 10.2 % 0-10 [facility] Blood platelet mean volumeOr dered By: Javy Doss on 05-04-2023 Platelet mean volume (Bld) [Entitic vol] 9.2 fL 6.2-12.0 [facility] Determination of erythrocyte mean corpuscular volume (MCV)Ordered By: Javy Doss on 05-04-2023 MCV (RBC) [Entitic vol] 89.1 fL 81-99 [facility] Erythrocyte sedimentation ra teOrdered By: Abdirizak Forrest on 05-04-2023 ESR (Bld) [Velocity] 88 mm/h 0-30 [facility] Fungus cultureOrdered By: Neva Forrest on 05-04-2023 Fungus identified Cx Nom (Unsp spec) [facility] Fungus stainOrdered By: Jonas Forrest on 05-04-2023 Fungus identified Fungus stain Nom (Unsp spec) [facility] Gram stain for investigation of transfusion reactionOrdered By: Abdirizak Forrest on 05-04-2023 Microscopic observation Gram stain Nom (Unsp spec) [facility] Microscopic observation Gram stain Nom (Unsp spec) [facility] Hematocrit Auto (Bld) [Volum e fraction]Ordered By: Javy Doss on 05-04-2023 Hematocrit (Bld) [Volume fraction] 32.8 % 37-47 [facility] - Chemistry and C hemistry - challengeOrdered By: Ronald Hilario on 05-04-2023 HCG ( test) Ql (U) Negative [facility] Comment on above: Very dilute urine sp ecimens, as indicated by a low specificgravity, may not contain business representative levels of hCG. If is still suspected, a first morning urinespecimen should be collected 48 hours later and tested. Laboratory - Microbiology an d Antimicrobial susceptibilityOrdered By: Javy Doss on 05-04-2023 Bacteria identified Cx Nom (Bld) No growth in [address] [facility] MCHC Auto (RBC) [Mass/Vol]Or dered By: Javy Doss on 05-04-2023 MCHC (RBC) [Mass/Vol] 32.0 g/dL 32-36 [facility] No Panel InformationOrdered By: Ronald Hilario on 05-04-[address] [facility] No Panel InformationOrdered By: Javy Doss on 05-04-2023 No growth in 5 days. [facility] 28.5 pg 27.0-32.0 [facility] 15.9 % 11.6-14.6 [facility] 52.3 fl 35.1-43.9 [facility] 1.300 % 0.0-0.9 [facility] 0 % 0-5 [facility] 100 mL/min >60 [facility] 121 mL/min >60 [facility] 105.98 ml/min [facility] 12.5 RATIO 10-20 [facility] 27.0 mmol/L 21.0-32.0 [facility] Platelets bldOrdered By: Haylee Doss on 05-04-2023 Platelets (Bld) [#/Vol] 333 10*3/uL 150-450 [facility] Serum or plasma C reactive p rotein measurement (mass/volume)Ordered By: Abdirizak Forrest on 05-04-2023 CRP [Mass/Vol] 117.00 mg/L 0.0-3.0 [facility] Comment on above: C-Reactive Protein ( CRP) provides useful information for thediagnosis, therapy and monitoring of inflammatory processesand associated diseases. For the evaluation of Relative Riskfor Cardiovascular Disease, a High Sensitivity CRP (HSCRP)should be ordered. Serum or plasma calcium hussein urement (mass/volume)Ordered By: Javy Romario on 05-04-2023 Calcium [Mass/Vol] 8.7 mg/dL 8.5-10.1 [facility] Serum or plasma creatinine m easurement (mass/volume)Ordered By: [facility] Romario on 05-04-2023 Creatinine [Mass/Vol] 0.72 mg/dL 0.55-1.02 [facility] Serum or plasma urea nitroge n measurement (mass/volume)Ordered By: Javy Zamudiomeño on 05-04-2023 Urea nitrogen [Mass/Vol] 9 mg/dL 7-18 [facility] Thin prep Papanicolaou smear with manual screeningOrdered By: Javy Zamudiomeño on 05-04-2023 Thin prep Papanicolaou smear with manual screening 4 5-15 [facility] Whole blood hemoglobin A1c/t otal hemoglobin ratio (mass fraction)Ordered By: Abdirizak Forrest on 05-04-2023 HbA1c (Bld) [Mass fraction] 7.2 % 3.8-5.6 [facility] Comment on above: Normal < 5.7 % Predi abetic 5.7 - 6.4 % Diabetic >or= 6.5 % Please note range changes. Absolute lymphocyte countOrd ered By: Deann Guerrero on 04-14-2023 Lymphocytes Auto (Unsp spec) [#/Vol] 3.05 10*3/uL 0.83-4.51 [facility] Basophil percentageOrdered B y: Deann Guerrero on 04-14-2023 Basophil percentage 179 mg/dL 74-106 [facility] Basophil percentage 8.2 g/dL 6.4-8.2 [facility] Basophil percentage 0.60 mg/dL 0.20-1.00 [facility] Basophil percentage 135 mmol/L 136-145 [facility] Basophil percentage 3.6 mmol/L 3.5-5.1 [facility] Basophil percentage 103 mmol/L 98-107 [facility] Basophils (Bld) [#/Vol] 7.8 10*3/uL 4.4-11.0 [facility] Basophils (Bld) [#/Vol] 4.1 10*3/uL 2.0-7.7 [facility] Basophils/100 WBC (Bld) 52.8 % 47-70 [facility] Basophils/100 WBC (Bld) 0.3 % 0-5 [facility] Basophils/100 WBC (Bld) 0.5 % 0-1 [facility] Bilirubin [Mass/Vol] 0.60 mg/dL 0.20-1.00 [facility] Comment on above: For patients on eltr ombopag therapy, use of [employer] TBIL is not recommended. Chloride [Moles/Vol] 103 mmol/L 98-107 [facility] Eosinophils/100 WBC (Bld) 0.3 % 0-5 [facility] Glucose [Mass/Vol] 179 mg/dL 74-106 [facility] Comment on above: Fasting Glucose resu lt greater than or equal to 126 mg/dL suggests DIABETES MELLITUS per A.D.A. criteria. Neutrophils (Bld) [#/Vol] 4.1 10*3/uL 2.0-7.7 [facility] Neutrophils/100 WBC (Bld) 52.8 % 47-70 [facility] Potassium [Moles/Vol] 3.6 mmol/L 3.5-5.1 [facility] Protein [Mass/Vol] 8.2 g/dL 6.4-8.2 [facility] Sodium [Moles/Vol] 135 mmol/L 136-145 [facility] WBC (Bld) [#/Vol] 7.8 10*3/uL 4.4-11.0 [facility] Blood erythrocytes count (nu mber/volume)Ordered By: Deann Guerrero on 04-14-2023 RBC (Bld) [#/Vol] 4.57 10*6/uL 4.2-5.4 [facility] Blood hemoglobin measurement (mass/volume)Ordered By: Deann Guerrero on 04-14-2023 Hemoglobin (Bld) [Mass/Vol] 12.8 g/dL 12.0-15.0 [facility] Blood lymphocytes/100 leukoc ytesOrdered By: Deann Guerrero on 04-14-2023 Lymphocytes/100 WBC (Bld) 39.3 % 19-41 [facility] Blood monocytes/100 leukocyt esOrdered By: Deann Guerrero on 04-14-2023 Monocytes/100 WBC (Bld) 6.1 % 0-10 [facility] Blood platelet mean volumeOr dered By: Deann Guerrero on 04-14-2023 Platelet mean volume (Bld) [Entitic vol] 8.3 fL 6.2-12.0 [facility] Determination of erythrocyte mean corpuscular volume (MCV)Ordered By: Deann Guerrero on 04-14-2023 MCV (RBC) [Entitic vol] 87.7 fL 81-99 [facility] Direct bilirubinOrdered By: Deann Guerrero on 04-14-2023 Bilirubin.direct [Mass/Vol] 0.16 mg/dL 0.00-0.30 [facility] Hematocrit Auto (Bld) [Volum e fraction]Ordered By: Deann Guerrero on 04-14-2023 Hematocrit (Bld) [Volume fraction] 40.1 % 37-47 [facility] - Chemistry and C hemistry - challengeOrdered By: Deann Guerrero on 04-14-2023 ALP [Catalytic activity/Vol] 111 U/L 45-117 [facility] ALT [Catalytic activity/Vol] 23 U/L 13-56 [facility] CO2 [Moles/Vol] 25.0 mmol/L 21.0-32.0 [facility] Globulin (S) [Mass/Vol] 5.0 g/dL 2.2-4.2 [facility] Lipase [Catalytic activity/Vol] 80 U/L 13-75 [facility] Comment on above: Please note:LIPASE r evised reference range effective 22. New Lipase methodology. Expected to produce lower values than the previous assay method. NEW Reference Range: 13 - 75 U/L Urea nitrogen/Creatinine [Mass ratio] 9.6 mg/mg - [facility] - Hematology and Cell countsOrdered By: Deann Guerrero on 04-14-2023 Erythrocyte distribution width (RBC) [Entitic vol] 48.6 fL 35.1-43.9 [facility] Erythrocyte distribution width (RBC) [Ratio] 16.4 % 11.6-14.6 [facility] Immature granulocytes/100 WBC (Bld) 1.000 % 0.0-0.9 [facility] Comment on above: IG% - Immature Granu locytes (promyelocytes, myelocytes and metamyelocytes) > 1% indicates that a LEFT SHIFT is Present. MCH (RBC) [Entitic mass] 28.0 pg 27.0-32.0 [facility] Nucleated RBC/100 WBC (Bld) [Ratio] 0 % 0-5 [facility] MCHC Auto (RBC) [Mass/Vol]Or dered By: Deann Guerrero on 04-14-2023 MCHC (RBC) [Mass/Vol] 31.9 g/dL 32-36 [facility] No Panel InformationOrdered By: Deann Guerrero on 04-14-2023 Estimated Creatinine Clearance Calc 73.37 ml/min [facility] Estimated GFR (MDRD) Amer 79 mL/min >60 [facility] Comment on above: GFR Calc Estimated GFR (MDRD) Non-Af Amer 66 mL/min >60 [facility] Comment on above: Non- GFR Calc 28.0 pg 27.0-32.0 [facility] 16.4 % 11.6-14.6 [facility] 48.6 fl 35.1-43.9 [facility] 1.000 % 0.0-0.9 [facility] 0 % 0-5 [facility] 66 mL/min >60 [facility] 79 mL/min >60 [facility] 73.37 ml/min [facility] 9.6 RATIO - [facility] 5.0 g/dL 2.2-4.2 [facility] 80 U/L 13-75 [facility] 111 U/L 45-117 [facility] 23 U/L 13-56 [facility] 25.0 mmol/L 21.0-32.0 [facility] Platelets bldOrdered By: Sulema Guerreor on 04-14-2023 Platelets (Bld) [#/Vol] 565 10*3/uL 150-450 [facility] Serum or plasma albumin hussein urement (mass/volume)Ordered By: Deann Guerrero on 04-14-2023 Albumin [Mass/Vol] 3.2 g/dL 3.2-5.0 [facility] Serum or plasma calcium hussein urement (mass/volume)Ordered By: Deann Guerrero on 04-14-2023 Calcium [Mass/Vol] 9.5 mg/dL 8.5-10.1 [facility] Serum or plasma creatinine m easurement (mass/volume)Ordered By: Deann Guerrero on 04-14-2023 Creatinine [Mass/Vol] 1.04 mg/dL 0.55-1.02 [facility] Comment on above: The validity of the calculated GFR & GFRAA in patients over 70 years has not been determined. Clinical correlation is essential. Serum or plasma urea nitroge n measurement (mass/volume)Ordered By: Deann Guerrero on 04-14-2023 Urea nitrogen [Mass/Vol] 10 mg/dL 7-18 [facility] Thin prep Papanicolaou smear with manual screeningOrdered By: Deann Guerrero on 04-14-2023 Thin prep Papanicolaou smear with manual screening 13 U/L 15-37 [facility] Thin prep Papanicolaou smear with manual screening 7 5-15 [facility] Absolute lymphocyte countOrd ered By: Poli Barfield on 04-13-2023 Lymphocytes Auto (Unsp spec) [#/Vol] 3.04 10*3/uL 0.83-4.51 [facility] Basophil percentageOrdered B y: Poli Barfield on 04-13-2023 Basophil percentage 280 mg/dL 74-106 [facility] Basophil percentage 7.8 g/dL 6.4-8.2 [facility] Basophil percentage 0.60 mg/dL 0.20-1.00 [facility] Basophil percentage 132 mmol/L 136-145 [facility] Basophil percentage 4.0 mmol/L 3.5-5.1 [facility] Basophil percentage 100 mmol/L 98-107 [facility] Basophils (Bld) [#/Vol] 8.7 10*3/uL 4.4-11.0 [facility] Basophils (Bld) [#/Vol] 5.1 10*3/uL 2.0-7.7 [facility] Basophils/100 WBC (Bld) 58.8 % 47-70 [facility] Basophils/100 WBC (Bld) 0.1 % 0-5 [facility] Basophils/100 WBC (Bld) 0.6 % 0-1 [facility] Bilirubin [Mass/Vol] 0.60 mg/dL 0.20-1.00 [facility] Comment on above: For patients on eltr ombopag therapy, use of [employer] TBIL is not recommended. Chloride [Moles/Vol] 100 mmol/L 98-107 [facility] Eosinophils/100 WBC (Bld) 0.1 % 0-5 [facility] Glucose [Mass/Vol] 280 mg/dL 74-106 [facility] Comment on above: Glucose result great er than or equal to 200 mg/dLsuggests DIABETES MELLITUS per A.D.A. criteria. Neutrophils (Bld) [#/Vol] 5.1 10*3/uL 2.0-7.7 [facility] Neutrophils/100 WBC (Bld) 58.8 % 47-70 [facility] Potassium [Moles/Vol] 4.0 mmol/L 3.5-5.1 [facility] Protein [Mass/Vol] 7.8 g/dL 6.4-8.2 [facility] Sodium [Moles/Vol] 132 mmol/L 136-145 [facility] WBC (Bld) [#/Vol] 8.7 10*3/uL 4.4-11.0 [facility] Beta hCG serum qualOrdered B y: Poli Barfield on 04-13-2023 Beta HCG ( test) Ql Negative [facility] Blood erythrocytes count (nu mber/volume)Ordered By: Poli Barfield on 04-13-2023 RBC (Bld) [#/Vol] 4.42 10*6/uL 4.2-5.4 [facility] Blood hemoglobin measurement (mass/volume)Ordered By: Poli Barfield on 04-13-2023 Hemoglobin (Bld) [Mass/Vol] 12.6 g/dL 12.0-15.0 [facility] Blood lymphocytes/100 leukoc ytesOrdered By: Poli Barfield on 04-13-2023 Lymphocytes/100 WBC (Bld) 35.1 % 19-41 [facility] Blood monocytes/100 leukocyt esOrdered By: Poli Barfield on 04-13-2023 Monocytes/100 WBC (Bld) 4.6 % 0-10 [facility] Blood platelet mean volumeOr dered By: Poli Barfield on 04-13-2023 Platelet mean volume (Bld) [Entitic vol] 8.3 fL 6.2-12.0 [facility] Determination of erythrocyte mean corpuscular volume (MCV)Ordered By: Poli Barfield on 04-13-2023 MCV (RBC) [Entitic vol] 87.3 fL 81-99 [facility] Hematocrit Auto (Bld) [Volum e fraction]Ordered By: Poli Barfield on 04-13-2023 Hematocrit (Bld) [Volume fraction] 38.6 % 37-47 [facility] Laboratory - Chemistry and C hemistry - challengeOrdered By: Poli Barfield on 04-13-2023 ALP [Catalytic activity/Vol] 114 U/L 45-117 [facility] ALT [Catalytic activity/Vol] 23 U/L 13-56 [facility] CO2 [Moles/Vol] 24.0 mmol/L 21.0-32.0 [facility] Globulin (S) [Mass/Vol] 4.8 g/dL 2.2-4.2 [facility] Lipase [Catalytic activity/Vol] 98 U/L 13-75 [facility] Comment on above: Please note:LIPASE r evised reference range effective 22. New Lipase methodology. Expected to produce lower values than the previous assay method. NEW Reference Range: 13 - 75 U/L Urea nitrogen/Creatinine [Mass ratio] 9.4 mg/mg 10-20 [facility] Laboratory - Hematology and Cell countsOrdered By: Poli Barfield on 04-13-2023 Erythrocyte distribution width (RBC) [Entitic vol] 47.7 fL 35.1-43.9 [facility] Erythrocyte distribution width (RBC) [Ratio] 16.6 % 11.6-14.6 [facility] Immature granulocytes/100 WBC (Bld) 0.800 % 0.0-0.9 [facility] Comment on above: IG% - Immature Granu locytes (promyelocytes, myelocytes and metamyelocytes) > 1% indicates that a LEFT SHIFT is Present. MCH (RBC) [Entitic mass] 28.5 pg 27.0-32.0 [facility] Nucleated RBC/100 WBC (Bld) [Ratio] 0 % 0-5 [facility] MCHC Auto (RBC) [Mass/Vol]Or dered By: Poli Barfield on 04-13-2023 MCHC (RBC) [Mass/Vol] 32.6 g/dL 32-36 [facility] No Panel InformationOrdered By: Poli Barfield on 04-13-2023 Estimated Creatinine Clearance Calc 59.62 ml/min [facility] Estimated GFR (MDRD) Amer 63 mL/min >60 [facility] Comment on above: GFR Calc Estimated GFR (MDRD) Non-Af Amer 52 mL/min >60 [facility] Comment on above: Non- GFR Calc 28.5 pg 27.0-32.0 [facility] 16.6 % 11.6-14.6 [facility] 47.7 fl 35.1-43.9 [facility] 0.800 % 0.0-0.9 [facility] 0 % 0-5 [facility] 52 mL/min >60 [facility] 63 mL/min >60 [facility] 59.62 ml/min [facility] 9.4 RATIO 10-20 [facility] 4.8 g/dL 2.2-4.2 [facility] 98 U/L 13-75 [facility] 114 U/L 45-117 [facility] 23 U/L 13-56 [facility] 24.0 mmol/L 21.0-32.0 [facility] Platelets bldOrdered By: Devon Barfield on 04-13-2023 Platelets (Bld) [#/Vol] 542 10*3/uL 150-450 [facility] Serum or plasma albumin hussein urement (mass/volume)Ordered By: Poli Barfield on 04-13-2023 Albumin [Mass/Vol] 3.0 g/dL 3.2-5.0 [facility] Serum or plasma albumin/glob ulin mass ratioOrdered By: Poli Barfield on 04-13-2023 Albumin/Globulin [Mass ratio] 0.6 {ratio} 0.9-2.4 [facility] Serum or plasma calcium hussein urement (mass/volume)Ordered By: Poli Barfield on 04-13-2023 Calcium [Mass/Vol] 9.5 mg/dL 8.5-10.1 [facility] Serum or plasma creatinine m easurement (mass/volume)Ordered By: Poli Barfield on 04-13-2023 Creatinine [Mass/Vol] 1.28 mg/dL 0.55-1.02 [facility] Comment on above: The validity of the calculated GFR & GFRAA in patients over 70 years has not been determined. Clinical correlation is essential. Serum or plasma urea nitroge n measurement (mass/volume)Ordered By: Poli Barfield on 04-13-2023 Urea nitrogen [Mass/Vol] 12 mg/dL 7-18 [facility] Thin prep Papanicolaou smear with manual screeningOrdered By: Poli Barfield on 04-13-2023 Thin prep Papanicolaou smear with manual screening 17 U/L 15-37 [facility] Thin prep Papanicolaou smear with manual screening 8 5-15 [facility] Absolute lymphocyte countOrd ered By: Rickey Shepard on 03-06-2023 Lymphocytes Auto (Unsp spec) [#/Vol] 3.14 10*3/uL 0.83-4.51 [facility] Basophil percentageOrdered B y: Rickey Shepard on 03-06-2023 Basophil percentage 215 mg/dL 74-106 [facility] Basophil percentage 8.4 g/dL 6.4-8.2 [facility] Basophil percentage 0.50 mg/dL 0.20-1.00 [facility] Basophil percentage 134 mmol/L 136-145 [facility] Basophil percentage 3.1 mmol/L 3.5-5.1 [facility] Basophil percentage 101 mmol/L 98-107 [facility] Basophil percentage 2.2 mmol/L 0.4-2.0 [facility] Basophils (Bld) [#/Vol] 10.9 10*3/uL 4.4-11.0 [facility] Basophils (Bld) [#/Vol] 6.9 10*3/uL 2.0-7.7 [facility] Basophils/100 WBC (Bld) 62.8 % 47-70 [facility] Basophils/100 WBC (Bld) 0.2 % 0-5 [facility] Basophils/100 WBC (Bld) 0.4 % 0-1 [facility] Bilirubin [Mass/Vol] 0.50 mg/dL 0.20-1.00 [facility] Comment on above: For patients on eltr ombopag therapy, use of [employer] TBIL is not recommended. Chloride [Moles/Vol] 101 mmol/L 98-107 [facility] Eosinophils/100 WBC (Bld) 0.2 % 0-5 [facility] Glucose [Mass/Vol] 215 mg/dL 74-106 [facility] Comment on above: Glucose result great er than or equal to 200 mg/dLsuggests DIABETES MELLITUS per A.D.A. criteria. Lactate [Moles/Vol] 2.2 mmol/L 0.4-2.0 [facility] Comment on above: Critical Result(s) C alled at: 09:58:40 03/06/2023 by: Gayathri Wilhelm. Results read back by same. Neutrophils (Bld) [#/Vol] 6.9 10*3/uL 2.0-7.7 [facility] Neutrophils/100 WBC (Bld) 62.8 % 47-70 [facility] Potassium [Moles/Vol] 3.1 mmol/L 3.5-5.1 [facility] Protein [Mass/Vol] 8.4 g/dL 6.4-8.2 [facility] Sodium [Moles/Vol] 134 mmol/L 136-145 [facility] WBC (Bld) [#/Vol] 10.9 10*3/uL 4.4-11.0 [facility] Basophil percentage 0 SEEN /hpf 0-5 [facility] Bilirubin Test strip Ql (U)O rdered By: Rickey Shepard on 03-06-2023 Bilirubin Ql (U) Negative Negative [facility] Blood erythrocytes count (nu mber/volume)Ordered By: Rickey Shepard on 03-06-2023 RBC (Bld) [#/Vol] 4.33 10*6/uL 4.2-5.4 [facility] Blood hemoglobin measurement (mass/volume)Ordered By: Rickey Shepard on 03-06-2023 Hemoglobin (Bld) [Mass/Vol] 11.5 g/dL 12.0-15.0 [facility] Blood lymphocytes/100 leukoc ytesOrdered By: Rickey Shepard on 03-06-2023 Lymphocytes/100 WBC (Bld) 28.8 % 19-41 [facility] Blood monocytes/100 leukocyt esOrdered By: Rickey Shepard on 03-06-2023 Monocytes/100 WBC (Bld) 7.2 % 0-10 [facility] Blood platelet mean volumeOr dered By: Rickey Shepard on 03-06-2023 Platelet mean volume (Bld) [Entitic vol] 9.2 fL 6.2-12.0 [facility] Determination of erythrocyte mean corpuscular volume (MCV)Ordered By: Rickey Shepard on 03-06-2023 MCV (RBC) [Entitic vol] 82.7 fL 81-99 [facility] Hematocrit Auto (Bld) [Volum e fraction]Ordered By: Rickey Shepard on 03-06-2023 Hematocrit (Bld) [Volume fraction] 35.8 % 37-47 [facility] INR in Blood by Coagulation assayOrdered By: Rickey Shepard on 03-06-2023 INR Coag (Bld) [Relative time] 1.2 {INR} [facility] Ketones Test strip Ql (U)Ord ered By: Rickey Shepard on 03-06-2023 Ketones Ql (U) Negative Negative [facility] Laboratory - Chemistry and C hemistry - challengeOrdered By: Rickey Shepard on 03-06-2023 ALP [Catalytic activity/Vol] 109 U/L 45-117 [facility] ALT [Catalytic activity/Vol] 13 U/L 13-56 [facility] CO2 [Moles/Vol] 25.0 mmol/L 21.0-32.0 [facility] Globulin (S) [Mass/Vol] 5.2 g/dL 2.2-4.2 [facility] Lipase [Catalytic activity/Vol] 59 U/L 13-75 [facility] Comment on above: Please note:LIPASE r evised reference range effective 22. New Lipase methodology. Expected to produce lower values than the previous assay method. NEW Reference Range: 13 - 75 U/L Urea nitrogen/Creatinine [Mass ratio] 4.0 mg/mg 10-20 [facility] Laboratory - CoagulationOrde red By: Rickey Shepard on 03-06-2023 aPTT Coag (Bld) [Time] 28.8 s 24.1-36.[address] [facility] PT Coag (PPP) [Time] 14.8 s 11.7-14.9 [facility] Laboratory - Hematology and Cell countsOrdered By: Rickey Shepard on 03-06-2023 Erythrocyte distribution width (RBC) [Entitic vol] 41.1 fL 35.1-43.9 [facility] Erythrocyte distribution width (RBC) [Ratio] 13.6 % 11.6-14.6 [facility] Immature granulocytes/100 WBC (Bld) 0.600 % 0.0-0.9 [facility] Comment on above: IG% - Immature Granu locytes (promyelocytes, myelocytes and metamyelocytes) > 1% indicates that a LEFT SHIFT is Present. MCH (RBC) [Entitic mass] 26.6 pg 27.0-32.0 [facility] Nucleated RBC/100 WBC (Bld) [Ratio] 0 % 0-5 [facility] MCHC Auto (RBC) [Mass/Vol]Or dered By: Rickey Shepard on 03-06-2023 MCHC (RBC) [Mass/Vol] 32.1 g/dL 32-36 [facility] Mucus LM Ql (Urine sed)Order ed By: Rickey Shepard on 03-06-2023 Mucus Ql (Urine sed) 0 SEEN /hpf [facility] Nitrite Test strip Ql (U)Ord ered By: Rickey Shepard on 03-06-2023 Nitrite Ql (U) Negative Negative [facility] No Panel InformationOrdered By: Rickey Shepard on 03-06-2023 Estimated Creatinine Clearance Calc 75.55 ml/min [facility] Estimated GFR (MDRD) Amer 82 mL/min >60 [facility] Comment on above: GFR Calc Estimated GFR (MDRD) Non-Af Amer 68 mL/min >60 [facility] Comment on above: Non- GFR Calc 26.6 pg 27.0-32.0 [facility] 13.6 % 11.6-14.6 [facility] 41.1 fl 35.1-43.9 [facility] 0.600 % 0.0-0.9 [facility] 0 % 0-5 [facility] 14.8 SECONDS 11.7-14.9 [facility] 28.8 Seconds 24.1-36.2 [facility] 68 mL/min >60 [facility] 82 mL/min >60 [facility] 75.55 ml/min [facility] 4.0 RATIO 10-20 [facility] 5.2 g/dL 2.2-4.2 [facility] 59 U/L 13-75 [facility] 109 U/L 45-117 [facility] 13 U/L 13-56 [facility] 25.0 mmol/L 21.0-32.0 [facility] Platelets bldOrdered By: Ivy Shepard on 03-06-2023 Platelets (Bld) [#/Vol] 412 10*3/uL 150-450 [facility] Protein Test strip Ql (U)Ord ered By: Rickey Shepard on 03-06-2023 Protein Ql (U) 30 mg/dl Negative [facility] Serum or plasma acetone hussein urement (mass/volume)Ordered By: Rickey Shepard on 03-06-2023 Acetone [Mass/Vol] Negative NEG [facility] Serum or plasma albumin hussein urement (mass/volume)Ordered By: Rickey Shepard on 03-06-2023 Albumin [Mass/Vol] 3.2 g/dL 3.2-5.0 [facility] Serum or plasma albumin/glob ulin mass ratioOrdered By: Rickey Shepard on 03-06-2023 Albumin/Globulin [Mass ratio] 0.6 {ratio} 0.9-2.4 [facility] Serum or plasma calcium hussein urement (mass/volume)Ordered By: Rickey Shepard on 03-06-2023 Calcium [Mass/Vol] 9.3 mg/dL 8.5-10.1 [facility] Serum or plasma creatinine m easurement (mass/volume)Ordered By: Rickey Shepard on 03-06-2023 Creatinine [Mass/Vol] 1.01 mg/dL 0.55-1.02 [facility] Comment on above: The validity of the calculated GFR & GFRAA in patients over 70 years has not been determined. Clinical correlation is essential. Serum or plasma urea nitroge n measurement (mass/volume)Ordered By: Rickey Shepard on 03-06-2023 Urea nitrogen [Mass/Vol] 4 mg/dL 7-18 [facility] Squamous epithelial cells de tection in urine sediment by light microscopyOrdered By: Rickey Shepard on 03-06-2023 Epithelial cells.squamous LM Ql (Urine sed) 0-5 SEEN /hpf 5-10 [facility] Thin prep Papanicolaou smear with manual screeningOrdered By: Rickey Shepard on 03-06-2023 Thin prep Papanicolaou smear with manual screening 7 U/L 15-37 [facility] Thin prep Papanicolaou smear with manual screening 8 5-15 [facility] Urine blood detectionOrdered By: Rickey Shepard on 03-06-2023 RBC Ql (U) 10 /ul Negative [facility] RBC Ql (U) 0 SEEN /hpf 0-5 [facility] Urine clarityOrdered By: Ivy Shepard on 03-06-2023 Clarity (U) Clear Clear [facility] Urine color determinationOrd ered By: Rickey Shepard on 03-06-2023 Color (U) Yellow Yellow [facility] Urine glucose detectionOrder ed By: Rickey Shepard on 03-06-2023 Glucose Ql (U) 100 mg/dl Normal [facility] Urine leukocyte esterase det ection by dipstickOrdered By: Rickey Shepard on 03-06-2023 Leukocyte esterase Test strip Ql (U) 25 /ul Negative [facility] Urine pHOrdered By: Rickey webb on 03-06-2023 pH (U) 7.0 [pH] 5.0 - 8.0 [facility] Urine sediment bacteria coun t by microscopy (number/high power field)Ordered By: Rickey Shepard on 03-06-2023 Bacteria LM.HPF (Urine sed) [#/Area] RARE /hpf None Seen [facility] Urine specific gravity measu rementOrdered By: Rickey Shepard on 03-06-2023 Specific gravity (U) [Rel density] 1.010 1.002-1.030 [facility] Urobilinogen Auto test strip Ql (U)Ordered By: Rickey Shepard on 03-06-2023 Urobilinogen Ql (U) Normal mg/dl Normal [facility] Basic metabolic 2000 panelon 03-04-2023 Anion gap [Moles/Vol] 14 mmol/L Normal 9-18 [facility] Comment on above: Order Comment: Speci men Type: BLOOD SPECIMENOrdering Facility: [facility] Address: [address] [address] Performed By: #### 2 4321-2 ####[facility] LABORATORYCLIA [id number] [place] [address] [place] Calcium [Mass/Vol] 8.9 mg/dL Normal 8.5-10.2 [facility] Comment on above: Order Comment: Speci men Type: BLOOD SPECIMENOrdering Facility: [facility] Address: [address] [place] [address] Performed By: #### 2 4321-2 ####[facility] LABORATORYCLIA [id number] [place] [address] [place] Chloride [Moles/Vol] 102 mmol/L Normal 97-105 [facility] Comment on above: Order Comment: Speci men Type: BLOOD SPECIMENOrdering Facility: [facility] Address: [address] [address] Performed By: #### 2 4321-2 ####[facility] LABORATORYCLIA [id number] [place] [address] [place] CO2 [Moles/Vol] 21 mmol/L Low 22-30 [facility] Comment on above: Order Comment: Mahogany vargas Type: BLOOD SPECIMENOrdering Facility: [facility] Address: [address] [address] Performed By: #### 2 4321-2 ####[facility] LABORATORYCLIA [id number] [place] [address] [place] Creatinine [Mass/Vol] 0.78 mg/dL Normal 0.58-0.96 [facility] Comment on above: Order Comment: Mahogany men Type: BLOOD SPECIMENOrdering Facility: [facility] Address: [address] [address] Performed By: #### 2 4321-2 ####[facility] LABORATORYCLIA [id number] [place] [address] [place] Creatinine and Glomerular filtration rate.predicted panel (S/P/Bld) 104 mL/min/1.73m??? Normal >=60 [facility] Comment on above: Order Comment: Mahogany vargas Type: BLOOD SPECIMENOrdering Facility: [facility] Address: [address] [place] [address] Result Comment: Samreen mated Glomerular Filtration Rate (eGFR) is calculated using the 2020 CKD-EPI creatinine equation. This equation utilizes serum creatinine, sex, and age as parameters. The creatinine assay has traceable calibration to isotope dilution-mass spectrometry. Refer to KDIGO guidelines for clinical interpretation. In patients with unstable renal function, e.g. those with acute kidney injury, the eGFR may not accurately reflect actual GFR. Performed By: #### 2 4321-2 ####[facility] LABORATORYCLIA [id number] [place] [address] [place] Glucose [Mass/Vol] 158 mg/dL High 74-99 [facility] Comment on above: Order Comment: Mahogany vargas Type: BLOOD SPECIMENOrdering Facility: [facility] Address: [address] [address] Result Comment: The [place] [employer] (ADA) provides guidance for cutoff values for fasting glucose and random glucose. The ADA defines fasting as no caloric intake for at least 8 hours. Fasting plasma glucose results between 100 to 125 mg/dL indicate increased risk for diabetes (prediabetes). Fasting plasma glucose results greater than or equal to 126 mg/dL meet the criteria for diagnosis of diabetes. In the absence of unequivocal hyperglycemia, results should be confirmed by repeat testing. In a patient with classic symptoms of hyperglycemia or hyperglycemic crisis, random plasma glucose results greater than or equal to 200 mg/dL meet the criteria for diagnosis of diabetes. Reference: Standards of Medical Care in Diabetes 2016, [place] [employer]. Diabetes Care. 2016.39(Suppl 1). Performed By: #### 2 4321-2 ####[facility] LABORATORYCLIA [id number] [place] [address] [place] Potassium [Moles/Vol] 3.3 mmol/L Low 3.7-5.1 [facility] Comment on above: Order Comment: Timuri alicia Type: BLOOD SPECIMENOrdering Facility: [facility] Address: [address] [address] Performed By: #### 2 4321-2 ####[facility] LABORATORYCLIA [id number] [place] [address] [place] Sodium [Moles/Vol] 137 mmol/L Normal 136-144 [facility] Comment on above: Order Comment: Mahogany vargas Type: BLOOD SPECIMENOrdering Facility: [facility] Address: [address] [address] Performed By: #### 2 4321-2 ####[facility]ORATORYCLIA [id number] [place] [address] [place] Urea nitrogen [Mass/Vol] 4 mg/dL Low 7-21 [facility] Comment on above: Order Comment: Mahogany vargas Type: BLOOD SPECIMENOrdering Facility: [facility] Address: [address] [address] Performed By: #### 2 4321-2 ####[facility] LABORATORYCLIA [id number] [place] [address] [place] CBC panel Auto (Bld)on 03-04 Erythrocyte distribution width (RBC) [Ratio] 13.5 % Normal 11.5-15.0 [facility] Comment on above: Order Comment: Speci men Type: BLOOD SPECIMENOrdering Facility: [facility] Address: [address] [place] [address] Performed By: #### 5 8410-2 ####[facility] LABORATORYCLIA [id number] [place] [address] [place] Hematocrit (Bld) [Volume fraction] 34.2 % Low 36.0-46.0 [facility] Comment on above: Order Comment: Speci men Type: BLOOD SPECIMENOrdering Facility: [facility] Address: [address] [place] [address] Performed By: #### 5 8410-2 ####[facility] LABORATORYCLIA [id number] [place] [address] [place] Hemoglobin (Bld) [Mass/Vol] 11.5 g/dL Normal 11.5-15.5 [facility] Comment on above: Order Comment: Speci men Type: BLOOD SPECIMENOrdering Facility: [facility] Address: [address] [place] [address] Performed By: #### 5 8410-2 ####[facility] LABORATORYCLIA [id number] [place] [address] [place] MCH (RBC) [Entitic mass] 27.4 pg Normal 26.0-34.0 [facility] Comment on above: Order Comment: Speci men Type: BLOOD SPECIMENOrdering Facility: [facility] Address: [address] [place] [address] Performed By: #### 5 8410-2 ####[facility] LABORATORYCLIA [id number] [place] [address] [place] MCHC (RBC) [Mass/Vol] 33.6 g/dL Normal 30.5-36.0 [facility] Comment on above: Order Comment: Speci men Type: BLOOD SPECIMENOrdering Facility: [facility] Address: [address] [place] [address] Performed By: #### 5 8410-2 ####[facility] LABORATORYCLIA [id number] [place] [address] [place] MCV (RBC) [Entitic vol] 81.6 fL Normal 80.0-100.0 [facility] Comment on above: Order Comment: Speci men Type: BLOOD SPECIMENOrdering Facility: [facility] Address: [address] [place] [address] Performed By: #### 5 8410-2 ####[facility] LABORATORYCLIA [id number] [place] [address] [place] Nucleated RBC (Bld) [#/Vol] 10*3/uL Normal <0.01 [facility] Comment on above: Order Comment: Speci men Type: BLOOD SPECIMENOrdering Facility: [facility] Address: [address] [place] [address] Performed By: #### 5 8410-2 ####[facility] LABORATORYCLIA [id number] [place] [address] [place] Platelet mean volume (Bld) [Entitic vol] 9.3 fL Normal 9.0-12.7 [facility] Comment on above: Order Comment: Speci men Type: BLOOD SPECIMENOrdering Facility: [facility] Address: [address] [place] [address] Performed By: #### 5 8410-2 ####[facility] LABORATORYCLIA [id number] [place] [address] [place] Platelets (Bld) [#/Vol] 362 10*3/uL Normal 150-400 [facility] Comment on above: Order Comment: Speci men Type: BLOOD SPECIMENOrdering Facility: [facility] Address: [address] [place] [address] Performed By: #### 5 8410-2 ####[facility] LABORATORYCLIA [id number] [place] [address] [place] RBC (Bld) [#/Vol] 4.19 10*6/uL Normal 3.90-5.20 [facility] Comment on above: Order Comment: Speci men Type: BLOOD SPECIMENOrdering Facility: [facility] Address: [place] [id number] Performed By: #### 5 8410-2 ####[facility] LABORATORYCLIA [id number] [place] [id number] [facility] WBC (Bld) [#/Vol] 10.19 10*3/uL Normal 3.70-11.00 [facility] Comment on above: Order Comment: Speci men Type: BLOOD SPECIMENOrdering Facility: [facility] Address: [place] [address] Performed By: #### 5 8410-2 ####[facility] LABORATORYCLIA [id number] [place] [id number] [facility] CNDSon 03-04-2023 CNDS HNO ID: [id number] Author: Kelley Lopez MD Service: ? Author Type: Physician Type: Discharge Summary Filed: 03/05/2023 12:41 PM Note Text: DISCHARGE SUMMARY PATIENT NAME: Ghislaine Givens Code Status: Prior Admission Information Admission Information ADMIT DATE: 03/01/2023 DISCHARGE DATE: 03/04/2023 MY DOCTORS AND MEDICAL TEAM: [facility] Doctor: Kelley Lopez MD Primary Care Provider: Amy Solorzano NP My Medical Team Members: Treatment Team: Attending Provider: Kelley Lopez MD Consulting: Cayetano Tai MD MY CONDITION AT DISCHARGE: Stable REASON I WAS IN THE HOSPITAL: Nausea, Vomiting, Abdominal Pain SUMMARY OF WHAT HAPPENED WHILE I WAS IN THE HOSPITAL: Patient was admitted for Nausea, Vomiting, Abdominal Pain. 33-year-old female with past medical history of intractable nausea and vomiting, uncontrolled insulin-dependent diabetes mellitus, previous marijuana and tobacco abuse, depression and anxiety, severe protein calorie malnutrition presents with complaint of 3 months of nausea, vomiting and abdominal pain. Patient was at gastroenterology appointment this morning, but was tearful and persistently vomiting so directed to come down to emergency department instead of office evaluation. 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 Vomiting too frequent to count and constant for 3 months. 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 She complaints of abdominal pain which is generalized and unchanged for 3 months. No fever or chills, hematemesis, diarrhea, melena, BRBPR, urinary symptoms. She does endorse constipation for 2 weeks. She is passing gas without problem. She states she was prescribed stool softeners and laxatives during [facility] stay however she refuses to take them because she feels they worsen abdominal pain. She was also prescribed narcotic pain medication for home which she states she has been taking. Plan 03/02/23: Patient Active Hospital Problem List: 1. Intractable nausea and vomiting GI was consulted. Gastric emptying studies as outpatient. Symptom control. Continue with IVF. Monitor weights and IANDO. Monitor electrolytes and correct as needed. 2. Abdominal pain POA: Yes No narcotics. Physical examination is benign. 3. Obesity, Class I, BMI 30-34.9 POA: Yes Management as outpatient. 4. DM2 (diabetes mellitus, type 2) (HCC) POA: Yes Monitor blood sugars closely. Use ISS as needed. Continue with diabetic medications. Continue with carb-controlled diet. 5. HLD (hyperlipidemia) POA: Yes Continue with the same medications. 6. Constipation POA: Yes Laxatives. GI on case. 7. Anxiety and depression POA: Yes Psychiatry consult. 8. Borderline personality disorder (HCC) POA: Yes Psychiatry consult. 9. History of THC use 10. History of gastritis with recent EGD: PPI BID. PLAN 03/03/24: GI has signed off. CT abdomen is OK. Physical examination is benign. Soft and non tender. Seen by psychiatrist too. Signed off. Patient clearly has psychiatric problems. She told me has seen psychiatrist in the past and was told has depression, anxiety, bipolar and borderline personality disorder. She told psychiatrist totally different history, that she has never seen a psychiatrist in the past. Hemodynamically is stable. Medically not much more can be done. Plan to discharge in AM. Discussed with manager social services/case operator. Advance diet. PLAN 03/04/23: Hemodynamically is stable. Has been walking a lot. Gets anxious. Seen by psych and GI. Discussed with manager social services/case operator. OK to discharge the patient. Rest of management as outpatient. I personally spent more than 30 minutes for discharge of this patient. Discussed with unit PA/AVIONIC TECHNICIAN about care plans. Recommended to see her psychiatrist as outpatient. Has had high BP readings. Will add Losartan. Is diabetic too.. Vitals and labs were closely monitored and evaluated while hospitalized. Electrolytes were replaced as needed. Patient is stable for discharge home today. Patient should follow up with primary care physician (Amy Solorzano: [phone]) in 7-10 days for hospital follow up. Attending physician to follow up with full discharge summary. OTHER PROBLEMS/DIAGNOSIS: Principal Problem: Intractable nausea and vomiting Active Problems: DM2 (diabetes mellitus, type 2) ([facility]) HLD (hyperlipidemia) Obesity, Class I, BMI 30-34.9 Abdominal pain Constipation Anxiety and depression Borderline personality disorder ([facility]) Resolved Problems: * No resolved hospital problems. * OPERATIONS PERFORMED WHILE IN THE HOSPITAL: None IMPORTANT TEST/PROCEDURES: CT Scan EKG Xray, Gastric Emptying Study TEST RESULTS NOT AVAILABLE AT THIS TIME: No pending results Discharge Disposition Home/Self Care A (more content not included)... [facility] NURSING PROGon 03-04-2023 NURSING PROG HNO ID: [id number] Author: Shiloh Carl RN Service: Nursing Author Type: Registered Nurse Type: Nursing Progress Note Filed: 03/04/2023 9:09 PM Note Text: Received pt in obvious distress crying for pain states that she wants to be left alone nothing works for her . Pt refuse medication and vital signs check. She was educated on the importance of having these done. But still refuse. Pt for discharge left accompanied by transport via a wheelchair. DC documents given IV access removed. Education given. Pt left stable. Due care given. [facility] NURSING PROG HNO ID: [id number] Author: Hilda Dunlap RN Service: ? Author Type: Registered Nurse Type: Nursing Progress Note Filed: 03/04/2023 3:31 PM Note Text: 0725: Assumed patient care at this time. Safety maintained. 1600: Discharge instructions completed at this time. IV removed. Safety maintained. Belongings with patient. Patient has no needs at this time. [facility] Basic metabolic 2000 panelon 03-03-2023 Anion gap [Moles/Vol] 12 mmol/L Normal 9-18 [facility] Comment on above: Order Comment: Speci men Type: BLOOD SPECIMENOrdering Facility: [facility] Address: [address] [place] [address] Performed By: #### 2 4321-2 ####[facility] LABORATORYCLIA [id number] [place] [address] [place] Calcium [Mass/Vol] 9.3 mg/dL Normal 8.5-10.2 [facility] Comment on above: Order Comment: Speci men Type: BLOOD SPECIMENOrdering Facility: [facility] Address: [address] [place] [address] Performed By: #### 2 4321-2 ####[facility] LABORATORYCLIA [id number] [place] [address] [place] Chloride [Moles/Vol] 103 mmol/L Normal 97-105 [facility] Comment on above: Order Comment: Speci men Type: BLOOD SPECIMENOrdering Facility: [facility] Address: [address] [place] [address] Performed By: #### 2 4321-2 ####[facility] LABORATORYCLIA [id number] [place] [address] [place] CO2 [Moles/Vol] 24 mmol/L Normal 22-30 [facility] Comment on above: Order Comment: Speci men Type: BLOOD SPECIMENOrdering Facility: [facility] Address: [address] [place] [address] Performed By: #### 2 4321-2 ####[facility] LABORATORYCLIA [id number] [place] [address] [place] Creatinine [Mass/Vol] 0.87 mg/dL Normal 0.58-0.96 [facility] Comment on above: Order Comment: Speci men Type: BLOOD SPECIMENOrdering Facility: [facility] Address: [address] [place] [address] Performed By: #### 2 4321-2 ####[facility] LABORATORYCLIA [id number] [place] [address] [place] Creatinine and Glomerular filtration rate.predicted panel (S/P/Bld) 91 mL/min/1.73m??? Normal >=60 [facility] Comment on above: Order Comment: Mahogany vargas Type: BLOOD SPECIMENOrdering Facility: [facility] Address: [address] [place] [address] Result Comment: Samreen mated Glomerular Filtration Rate (eGFR) is calculated using the 2020 CKD-EPI creatinine equation. This equation utilizes serum creatinine, sex, and age as parameters. The creatinine assay has traceable calibration to isotope dilution-mass spectrometry. Refer to KDIGO guidelines for clinical interpretation. In patients with unstable renal function, e.g. those with acute kidney injury, the eGFR may not accurately reflect actual GFR. Performed By: #### 2 4321-2 ####[facility] LABORATORYCLIA [id number] [place] [address] [place] Glucose [Mass/Vol] 137 mg/dL High 74-99 [facility] Comment on above: Order Comment: Mahogany vargas Type: BLOOD SPECIMENOrdering Facility: [facility] Address: [address] [place] [address] Result Comment: The [place] [employer] Association (ADA) provides guidance for cutoff values for fasting glucose and random glucose. The ADA defines fasting as no caloric intake for at least 8 hours. Fasting plasma glucose results between 100 to 125 mg/dL indicate increased risk for diabetes (prediabetes). Fasting plasma glucose results greater than or equal to 126 mg/dL meet the criteria for diagnosis of diabetes. In the absence of unequivocal hyperglycemia, results should be confirmed by repeat testing. In a patient with classic symptoms of hyperglycemia or hyperglycemic crisis, random plasma glucose results greater than or equal to 200 mg/dL meet the criteria for diagnosis of diabetes. Reference: Standards of Medical Care in Diabetes 2016, [place] [employer]. Diabetes Care. 2016.39(Suppl 1). Performed By: #### 2 4321-2 ####[facility] LABORATORYCLIA [id number] [place] [id number] [place] Potassium [Moles/Vol] 3.5 mmol/L Low 3.7-5.1 [facility] Comment on above: Order Comment: Speci men Type: BLOOD SPECIMENOrdering Facility: [facility] Address: [address] [place] [address] Performed By: #### 2 4321-2 ####[facility] LABORATORYCLIA [id number] [place] [address] [place] Sodium [Moles/Vol] 139 mmol/L Normal 136-144 [facility] Comment on above: Order Comment: Speci men Type: BLOOD SPECIMENOrdering Facility: [facility] Address: [address] [place] [address] Performed By: #### 2 4321-2 ####[facility] LABORATORYCLIA [id number] [place] [address] [place] Urea nitrogen [Mass/Vol] 6 mg/dL Low 7-21 [facility] Comment on above: Order Comment: Speci men Type: BLOOD SPECIMENOrdering Facility: [facility] Address: [address] [place] [address] Performed By: #### 2 4321-2 ####[facility] LABORATORYCLIA [id number] [place] [address] [place] CBC panel Auto (Bld)on 03-03 Erythrocyte distribution width (RBC) [Ratio] 13.2 % Normal 11.5-15.0 [facility] Comment on above: Order Comment: Speci men Type: BLOOD SPECIMENOrdering Facility: [facility] Address: [address] [place] [address] Performed By: #### 5 8410-2 ####[facility] LABORATORYCLIA [id number] [place] [address] [place] Hematocrit (Bld) [Volume fraction] 36.1 % Normal 36.0-46.0 [facility] Comment on above: Order Comment: Speci men Type: BLOOD SPECIMENOrdering Facility: [facility] Address: [address] [place] [address] Performed By: #### 5 8410-2 ####[facility] LABORATORYCLIA [id number] [place] [address] [place] Hemoglobin (Bld) [Mass/Vol] 12.2 g/dL Normal 11.5-15.5 [facility] Comment on above: Order Comment: Speci men Type: BLOOD SPECIMENOrdering Facility: [facility] Address: [address] [place] [address] Performed By: #### 5 8410-2 ####[facility] LABORATORYCLIA [id number] [place] [address] [place] MCH (RBC) [Entitic mass] 27.4 pg Normal 26.0-34.0 [facility] Comment on above: Order Comment: Speci men Type: BLOOD SPECIMENOrdering Facility: [facility] Address: [address] [place] [address] Performed By: #### 5 8410-2 ####[facility] LABORATORYCLIA [id number] [address] [place] MCHC (RBC) [Mass/Vol] 33.8 g/dL Normal 30.5-36.0 [facility] Comment on above: Order Comment: Speci men Type: BLOOD SPECIMENOrdering Facility: [facility] Address: [address] [place] [address] Performed By: #### 5 8410-2 ####[facility] LABORATORYCLIA [id number] [place] [address] [place] MCV (RBC) [Entitic vol] 81.1 fL Normal 80.0-100.0 [facility] Comment on above: Order Comment: Speci men Type: BLOOD SPECIMENOrdering Facility: [facility] Address: [address] [place] [address] Performed By: #### 5 8410-2 ####[facility] LABORATORYCLIA [id number] [place] [address] [place] Nucleated RBC (Bld) [#/Vol] 10*3/uL Normal <0.01 [facility] Comment on above: Order Comment: Speci men Type: BLOOD SPECIMENOrdering Facility: [facility] Address: [address] [place] [address] Performed By: #### 5 8410-2 ####[facility] LABORATORYCLIA [id number] [place] [address] [place] Platelet mean volume (Bld) [Entitic vol] 9.0 fL Normal 9.0-12.7 [facility] Comment on above: Order Comment: Speci men Type: BLOOD SPECIMENOrdering Facility: [facility] Address: [address] [place] [address] Performed By: #### 5 8410-2 ####[facility] LABORATORYCLIA [id number] [place] [address] [place] Platelets (Bld) [#/Vol] 397 10*3/uL Normal 150-400 [facility] Comment on above: Order Comment: Speci men Type: BLOOD SPECIMENOrdering Facility: [facility] Address: [address] [place] [address] Performed By: #### 5 8410-2 ####[facility] LABORATORYCLIA [id number] [place] [address] [place] RBC (Bld) [#/Vol] 4.45 10*6/uL Normal 3.90-5.20 [facility] Comment on above: Order Comment: Speci men Type: BLOOD SPECIMENOrdering Facility: [facility] Address: [address] [place] [address] Performed By: #### 5 8410-2 ####[facility] LABORATORYCLIA [id number] [place] [id number] [place] WBC (Bld) [#/Vol] 13.15 10*3/uL High 3.70-11.00 [facility] Comment on above: Order Comment: Speci men Type: BLOOD SPECIMENOrdering Facility: [facility] Address: [address] [place] [address] Performed By: #### 5 8410-2 ####[facility] [id number] [address] [place] CONSULTon 03-03-2023 CONSULT HNO ID: [id number] Author: Caeytano Tai MD Service: Psychiatry Author Type: Physician Type: Consults Filed: 03/03/2023 3:12 PM Note Text: CONSULT PROGRESS NOTES PATIENT NAME: Ghislaine Givens SERVICE DATE: 03/03/2023 SERVICE TIME: 3:03 PM CONSULTING SERVICE: Psychiatry ASSESSMENT AND PLAN Principal Problem: Active Problems: Anxiety and depression (POA: Yes) Assessment AND Plan: has never seen a psychiatrist that she knows. Primary upset is her medical condition. Resolved Problems: * No resolved hospital problems. * SUBJECTIVE INTERVAL HPI: Consulted to see this 33 year old female for depression after she was admitted with intractable vomiting. She is from [place], [place] and was in [place] for a GI appointment and was sent to the ED from there because she was in such distress. She says she has not smoked marijuana for 3 moths but still has vomiting. She says GI does not help as they tell her there is nothing wrong with her. She does not believe she has ever seen a psychiatrist but gets medication from someone in my doctor's office, she is prescribed trazodone 300 mg at bedtime. I do not feel that any acute psychiatric intervention is going to help this patient as she is focused on her GI symptoms and as long as these are unresolved she will be depressed. She is psychiatrically clear for discharge. ---- Patient is alert O x 3 ---- Grooming and hygiene are good ---- Affect is constricted ---- Mood is dysphoric ---- Denies hallucinations ---- Denies delusions ---- Thought processes are disorganized ---- Cognition is intact ---- Memory is intact ---- Denies suicide ideation or intent ---- Denies homicide ideation or intent ---- Concentration is impaired ---- Speech is clear and distinct with an irregular rate and rhythm ---- Judgment and insight are limited MEDICATIONS: Current Facility-Administered Medications Medication Dose Route Frequency NaCl 0.9% iv flush bag 20 mL INTRAVENOUS PRN albuterol 2.5 mg /3 mL (0.083 %) 2.5 mg (PROVENTIL) 2.5 mg INHALATION q 4 H PRN insulin glargine 10 Units pen (long acting) 10 Units SUBCUTANEOUS BID 8A/BEDTIME bacitracin 500 unit/gram topical ointment TOPICAL BID pantoprazole DR 40 mg tab(s) (PROTONIX) 40 mg ORAL BID AC (0600/1600) polyethylene glycol 3350 17 g packet 17 g ORAL DAILY insulin lispro injection (rapid acting) (HumaLOG) SUBCUTANEOUS AT BEDTIME dextrose 40 % 15 g 15 g ORAL PRN Or glucagon 1 mg injection 1 mg INTRAMUSCULAR PRN Or dextrose 10% iv bolus 12.5 g INTRAVENOUS PRN heparin 5,000 Units injection 5,000 Units SUBCUTANEOUS q 12 H NaCl 0.9% iv infusion 100 mL/hr INTRAVENOUS CONTINUOUS ondansetron 4 mg tab(s) (ZOFRAN) 4 mg ORAL q 6 H PRN Or ondansetron (PF) 4 mg injection (ZOFRAN) 4 mg INTRAVENOUS q 6 H PRN prochlorperazine 5 mg injection (COMPAZINE) 5 mg INTRAVENOUS q 6 H PRN acetaminophen 650 mg tab(s) (TYLENOL) 650 mg ORAL q 6 H PRN insulin lispro injection (rapid acting) (HumaLOG) SUBCUTANEOUS w MEALS metFORMIN 500 mg tab(s) (GLUCOPHAGE) 500 mg ORAL BID w MEALS iv contrast (radiology procedure) INTRAVENOUS DIRECTED PRN enteric contrast (radiology procedure) ORAL DIRECTED PRN OBJECTIVE PHYSICAL EXAM: Patient Vitals for the past 24 hrs: BP Temp Temp src Pulse Resp SpO2 03/03/23 0825 131/85 36.6 ?C (97.9 ?F) Oral 72 16 98 % 03/03/23 0506 135/82 -- -- 67 -- -- 03/03/23 0454 135/109 36.4 ?C (97.5 ?F) Axillary 87 18 99 % 03/03/23 0056 143/92 36.7 ?C (98.1 ?F) Oral 74 20 99 % 03/02/23 1942 124/72 36.9 ?C (98.4 ?F) Oral 72 18 97 % 03/02/23 1703 145/113 36.5 ?C (97.7 ?F) Oral 91 18 100 % Body mass index is 31.32 kg/m?. DATA: Diagnostic tests reviewed for today's visit: Most recent labs SIGNATURE: Cayetano Tai MD DATE: March 03, 2023 TIME: 3:03 PM Normal [facility] CT ABD/PEL W IVCONon 023 CT ABD/PEL W IVCON * * *Final Report* * * DATE OF EXAM: Mar 03 2023 11:01AM [facility] 0530 - CT ABD/PEL W IVCON / PROCEDURE REASON: Nausea/vomiting * * * * Physician Interpretation * * * * RESULT: EXAMINATION: CT ABDOMEN AND PELVIS WITH IV CONTRAST CLINICAL HISTORY: Nausea and vomiting TECHNIQUE: CT of the abdomen and pelvis was performed using standard technique, scanning from just above the dome of the diaphragm to the symphysis pubis. MQ: CTAP_3 Contrast: IV: 100 ml of Omnipaque 300 Oral: None CT Radiation dose: Integrated Dose-length product (DLP) for this visit = 1052 mGy*cm. CT Dose Reduction Employed: Automated exposure control(AEC) and iterative recon RESULT: Liver: The liver is of low-density, when compared to the spleen, suggesting fatty infiltration of liver. More focal fatty change is seen within the liver, adjacent to the falciform ligament. Biliary: There is no biliary dilation. The gallbladder is grossly unremarkable. Spleen: No mass. No splenomegaly. Pancreas: There is no obvious focal discrete pancreatic mass or pancreatic ductal dilation. Adrenals: No mass. Kidneys: There is no hydronephrosis or perinephric fluid collection. There is a subcentimeter, low-attenuation lesion seen within left kidney, which is too small to characterize but statistically relates to a subcentimeter cyst (series 201, image #80). GI tract: There are no dilated loops of bowel to suggest obstruction. The appendix is seen in the right lower quadrant and is within normal limits. Lymph nodes: There is nonspecific abdominal lymphadenopathy. For example, a periportal lymph node measures approximately 1.1 cm in short axis dimension (series 201, image #44). There is also pelvic lymphadenopathy. For example, a right external iliac lymph node measures approximately 1 cm in short axis dimension (series 201, image #129). A second right external iliac lymph node measures approximately 1.4 cm in short axis dimension (series 201, image #132). Mesentery/Peritoneum: No abdominal ascites. Retroperitoneum: No mass. Vasculature: No abdominal aortic aneurysm. Pelvis: Pelvic lymphadenopathy. Phleboliths are seen within the right pelvis. There is no pelvic mass or pelvic ascites. Bones/Soft Tissues: A few presumed bone islands are seen within the osseous structures. There is sclerosis involving the sacroiliac joint spaces, bilaterally. No destructive bony lesion. Lower thorax: Tree-in-bud type pulmonary nodules are seen within the lower lobes, bilaterally, likely infectious or inflammatory in etiology. Consider prior aspiration is a diagnostic possibility. IMPRESSION: No acute abdominal or pelvic process is identified. No evidence for bowel obstruction. Normal appendix. Nonspecific abdominal and pelvic lymphadenopathy. Tree-in-bud type nodular opacities within the lower lobes, bilaterally, likely infectious or inflammatory in etiology. Consider prior aspiration as a diagnostic possibility. Transcribed Using Voice Recognition Transcribe Date/Time: Mar 03 2023 11:03A Dictated by: NEL THOMAS MD This examination was interpreted and the report reviewed and electronically signed by: NEL THOMAS MD on Mar 03 2023 11:11AM EST [id number] [facility] NURSING PROGon 03-03-2023 NURSING PROG HNO ID: [id number] Author: Anayeli Blue RN Service: PICC Team Author Type: Registered Nurse Type: Nursing Progress Note Filed: 03/03/2023 10:47 AM Note Text: PICC/VASCULAR ACCESS PROGRESS NOTE SERVICE DATE: 03/03/2023 SERVICE TIME: 10:45 10:46 AM Requested to see patient who has had unsuccessful IV attempts, needs new IV. Using ultrasound guidance, A peripheral IV was started in the Right forearm with a Angio cath: 20 gauge. 2 inches in length, on first attempt. Brisk blood return and flushed without difficulty with 10 mL saline. No symptoms of complications. SIGNATURE: Anayeli Blue RN PATIENT NAME: Ghislaine Givens DATE: March 03, 2023 TIME: 10:46 AM PAGER/CONTACT #: [phone] [facility] NURSING PROG HNO ID: [id number] Author: Hilda Dunlap RN Service: ? Author Type: Registered Nurse Type: Nursing Progress Note Filed: 03/03/2023 11:24 AM Note Text: 0750: Assumed patient care at this time. Safety maintained. 0925: K+ = 3.5. Text page to SUZANNE Rosales. 0938: CT called regarding contrast. Text page to SUZANNE Rosales if okay for CT to give the PRN IV contrast order. Awaiting orders and will call CT with response. 0943: Ok for IV contrast per Dr. Lopez. Updated CT. 1015: Patient transport to CT at this time. 1120: Updated GI patient refusing IVF and miralax. CT results avail. GI to come assess patient at bedside. [facility] ALLIED HEALTHon 03-02-2023 ALLIED HEALTH HNO ID: [id number] Author: Omari Juan RT(R) Service: Radiology Author Type: Technologist Type: Allied Health Filed: 03/02/2023 5:13 PM Note Text: Radiology Service Progress Note PATIENT NAME: Ghislaine Givens DATE OF SERVICE: March 02, 2023 TIME: 5:12 PM PATIENT IDENTITY VERIFICATION COMPLETED USING TWO (2) IDENTIFIERS: Name and Date of confirmed by patient verbally and Name and Date of confirmed by identification band. FALL SCREENING: Has the patient had 2 falls in the last year or 1 fall with injury or currently using an Ambulatory Assistive Device (Walker, Cane, Wheelchair, Crutches, etc.)? No PATIENT GENDER DATA: Female. status: : No status: N/A PATIENT RELEVANT IMPLANT DATA REVIEWED: Not Applicable RADIOLOGY DEPARTMENT: General X-ray: Exam(s) Completed: Abdomen X-Ray: Abdomen PERIPHERAL IV DATA: Not applicable SIGNED BY: RT Marleni(R) March 02, 2023 5:12 PM [facility] Basic metabolic 2000 panelon 03-02-2023 Anion gap [Moles/Vol] 12 mmol/L Normal 9-18 [facility] Comment on above: Order Comment: Speci men Type: BLOOD SPECIMENOrdering Facility: [facility] Address: [address] [place] [id number] Performed By: #### 2 4321-2 ####[facility] LABORATORYCLIA [id number] [place] [address] [place] Calcium [Mass/Vol] 8.9 mg/dL Normal 8.5-10.2 [facility] Comment on above: Order Comment: Speci men Type: BLOOD SPECIMENOrdering Facility: [facility] Address: [address] [address] Performed By: #### 2 4321-2 ####[facility] LABORATORYCLIA [id number] [place] [address] [place] Chloride [Moles/Vol] 102 mmol/L Normal 97-105 [facility] Comment on above: Order Comment: Speci men Type: BLOOD SPECIMENOrdering Facility: [facility] Address: [address] [address] Performed By: #### 2 4321-2 ####[facility] LABORATORYCLIA [id number] [place] [address] [place] CO2 [Moles/Vol] 26 mmol/L Normal 22-30 [facility] Comment on above: Order Comment: Speci men Type: BLOOD SPECIMENOrdering Facility: [facility] Address: [address] [place] [address] Performed By: #### 2 4321-2 ####[facility] LABORATORYCLIA [id number] [place] [address] [place] Creatinine [Mass/Vol] 0.92 mg/dL Normal 0.58-0.96 [facility] Comment on above: Order Comment: Speci men Type: BLOOD SPECIMENOrdering Facility: [facility] Address: [address] [place] [address] Performed By: #### 2 4321-2 ####[facility] LABORATORYCLIA [id number] [place] [address] [place] Creatinine and Glomerular filtration rate.predicted panel (S/P/Bld) 86 mL/min/1.73m??? Normal >=60 [facility] Comment on above: Order Comment: Speci men Type: BLOOD SPECIMENOrdering Facility: [facility] Address: [address] [place] [address] Result Comment: Samreen mated Glomerular Filtration Rate (eGFR) is calculated using the 2021 CKD-EPI creatinine equation. This equation utilizes serum creatinine, sex, and age as parameters. The creatinine assay has traceable calibration to isotope dilution-mass spectrometry. Refer to KDIGO guidelines for clinical interpretation. In patients with unstable renal function, e.g. those with acute kidney injury, the eGFR may not accurately reflect actual GFR. Performed By: #### 2 4321-2 ####[facility] LABORATORYCLIA [id number] [place] [address] [place] Glucose [Mass/Vol] 162 mg/dL High 74-99 [facility] Comment on above: Order Comment: Mahogany vargas Type: BLOOD SPECIMENOrdering Facility: [facility] Address: [address] [place] [address] Result Comment: The [place] [employer] (ADA) provides guidance for cutoff values for fasting glucose and random glucose. The ADA defines fasting as no caloric intake for at least 8 hours. Fasting plasma glucose results between 100 to 125 mg/dL indicate increased risk for diabetes (prediabetes). Fasting plasma glucose results greater than or equal to 126 mg/dL meet the criteria for diagnosis of diabetes. In the absence of unequivocal hyperglycemia, results should be confirmed by repeat testing. In a patient with classic symptoms of hyperglycemia or hyperglycemic crisis, random plasma glucose results greater than or equal to 200 mg/dL meet the criteria for diagnosis of diabetes. Reference: Standards of Medical Care in Diabetes 2016, [place] [employer]. Diabetes Care. 2016.39(Suppl 1). Performed By: #### 2 4321-2 ####[facility] LABORATORYCLIA [id number] [place] [id number] [place] Potassium [Moles/Vol] 3.7 mmol/L Normal 3.7-5.1 [facility] Comment on above: Order Comment: Mahogany vargas Type: BLOOD SPECIMENOrdering Facility: [facility] Address: [address] [id number] Performed By: #### 2 4321-2 ####[facility] LABORATORYCLIA [id number] [place] [address] [place] Sodium [Moles/Vol] 140 mmol/L Normal 136-144 [facility] Comment on above: Order Comment: Speci men Type: BLOOD SPECIMENOrdering Facility: [facility] Address: [address] [place] [address] Performed By: #### 2 4321-2 ####[facility] LABORATORYCLIA [id number] [place] [address] [place] Urea nitrogen [Mass/Vol] 8 mg/dL Normal 7-21 [facility] Comment on above: Order Comment: Speci men Type: BLOOD SPECIMENOrdering Facility: [facility] Address: [address] [address] Performed By: #### 2 4321-2 ####[facility] LABORATORYCLIA [id number] [place] [address] [place] CBC panel Auto (Bld)on 03-02 Erythrocyte distribution width (RBC) [Ratio] 13.4 % Normal 11.5-15.0 [facility] Comment on above: Order Comment: Speci men Type: BLOOD SPECIMENOrdering Facility: [facility] Address: [address] [address] Performed By: #### 5 8410-2 ####[facility] LABORATORYCLIA [id number] [place] [address] [place] Hematocrit (Bld) [Volume fraction] 34.1 % Low 36.0-46.0 [facility] Comment on above: Order Comment: Speci men Type: BLOOD SPECIMENOrdering Facility: [facility] Address: [address] [place] [address] Performed By: #### 5 8410-2 ####[facility] LABORATORYCLIA [id number] [place] [address] [place] Hemoglobin (Bld) [Mass/Vol] 11.3 g/dL Low 11.5-15.5 [facility] Comment on above: Order Comment: Speci men Type: BLOOD SPECIMENOrdering Facility: [facility] Address: [address] [address] Performed By: #### 5 8410-2 ####[facility] LABORATORYCLIA [id number] [address] [place] MCH (RBC) [Entitic mass] 27.2 pg Normal 26.0-34.0 [facility] Comment on above: Order Comment: Speci men Type: BLOOD SPECIMENOrdering Facility: [facility] Address: [address] [place] [address] Performed By: #### 5 8410-2 ####[facility] LABORATORYCLIA [id number] [address] [place] MCHC (RBC) [Mass/Vol] 33.1 g/dL Normal 30.5-36.0 [facility] Comment on above: Order Comment: Speci men Type: BLOOD SPECIMENOrdering Facility: [facility] Address: [address] [place] [address] Performed By: #### 5 8410-2 ####[facility] LABORATORYCLIA [id number] [address] MCV (RBC) [Entitic vol] 82.2 fL Normal 80.0-100.0 [facility] Comment on above: Order Comment: Speci men Type: BLOOD SPECIMENOrdering Facility: [facility] Address: [address] [place] [address] Performed By: #### 5 8410-2 ####[facility] LABORATORYCLIA [id number] [place] [address] [place] Nucleated RBC (Bld) [#/Vol] 10*3/uL Normal <0.01 [facility] Comment on above: Order Comment: Speci men Type: BLOOD SPECIMENOrdering Facility: [facility] Address: [address] [place] [address] Performed By: #### 5 8410-2 ####[facility] LABORATORYCLIA [id number] [address] [place] Platelet mean volume (Bld) [Entitic vol] 9.4 fL Normal 9.0-12.7 [facility] Comment on above: Order Comment: Speci men Type: BLOOD SPECIMENOrdering Facility: [facility] Address: [address] [place] [place] [address] Performed By: #### 5 8410-2 ####[facility] LABORATORYCLIA [id number] [place] [id number] [facility] [place] Platelets (Bld) [#/Vol] 374 10*3/uL Normal 150-400 [facility] Comment on above: Order Comment: Speci men Type: BLOOD SPECIMENOrdering Facility: [facility] Address: [address] [place] [place] [address] Performed By: #### 5 8410-2 ####[facility] LABORATORYCLIA [id number] [place] [address] [place] [facility] RBC (Bld) [#/Vol] 4.15 10*6/uL Normal 3.90-5.20 [facility] Comment on above: Order Comment: Speci men Type: BLOOD SPECIMENOrdering Facility: [facility] Address: [address] [place] [place] [address] Performed By: #### 5 8410-2 ####[facility] LABORATORYCLIA [id number] [address] [place] WBC (Bld) [#/Vol] 9.29 10*3/uL Normal 3.70-11.00 [facility] Comment on above: Order Comment: Speci men Type: BLOOD SPECIMENOrdering Facility: [facility] Address: [address] [place] [address] Performed By: #### 5 8410-2 ####[facility] LABORATORYCLIA [id number] [place] [id number] [facility] Neha 03-02-2023 HELGA Telephone (GARRY) GHISLAINE GIVENS ([id number]) 1990 F [place] Date Time Provider Department 03/02/23 ALMITA KELLY During your visit today, we recorded the following information about you: Almita Kelly PA-C 03/02/2023 2:33 PM Signed Hi, The patient needs outpatient GES for persistent nausea and vomiting once optimized. Orders placed. The patient is a Dr. Doran patient and should follow-up with him. Thanks! Almita Kelly PA-C Gastroenterology and Hepatology Allergies As of Date: 03/02/2023 (No Known Allergies) Date Reviewed: 03/02/2023 Reviewed by: Ghislaine Mancilla RN - Fully Assessed Reason for Visit: Appointment [186] Primary Visit Diagnosis:Nausea [R11.0] Order(s):NM GASTRIC EMPTYING SOLID [[id number]] Order #: [id number] FUTURE Prescriptions as of 01/31/2024 - acetaminophen (TYLENOL EXTRA STRENGTH) 500 mg tablet Take 2 tablets by mouth every 6 hours as needed for pain. - metFORMIN (GLUCOPHAGE) 500 mg tablet Take 1 tablet by mouth twice daily with meals. - losartan (COZAAR) 50 mg tablet Take 1 tablet by mouth once daily. - prochlorperazine (COMPAZINE) 5 mg tablet Take 2 tablets by mouth every 6 hours as needed. - polyethylene glycol 3350 (MIRALAX) 17 gram/dose powder Take 17 g by mouth once daily. Dissolve dose in 4 - 8 ounces of liquid and take as directed. Patient not started yet. - traZODone HCl (DESYREL) 300 mg tablet Take 300 mg by mouth daily at bedtime. - albuterol HFA (PROAIR HFA) 90 mcg/actuation inhaler Inhale 2 Puffs as instructed every 4 hours as needed. - insulin glargine 100 unit/mL (3 mL) Inject 10 Units subcutaneously twice daily. - pantoprazole DR (PROTONIX) 40 mg tablet Take 1 tablet by mouth twice daily before meals (0600/1600). - bacitracin 500 unit/gram ointment Apply to affected area twice daily. Problem List As Of Date 03/02/2023 Noted Resolved DM2 (diabetes mellitus, type 2) (HCC) [E11.9] 03/16/2013 Elevated BP [KDZ8743] 04/28/2013 11/27/2013 HLD (hyperlipidemia) [E78.5] 11/27/2013 Tobacco use disorder [F17.200] 11/27/2013 Obesity, Class I, BMI 30-34.9 [E66.9] 02/18/2023 Intractable nausea and vomiting [R11.2] 02/18/2023 Severe protein-calorie malnutrition (HCC) [E43] 02/19/2023 Abdominal pain [R10.9] 03/01/2023 Constipation [K59.00] 03/02/2023 Anxiety and depression [F41.9, F32.A] 03/02/2023 Borderline personality disorder (HCC) [F60.3] 03/02/2023 Encounter Status:Closed by ALMITA KELLY on 01/31/24 [facility] CONSULTon 03-02-2023 CONSULT HNO ID: [id number] Author: Gen Bradford MD Service: Gastroenterology Author Type: Physician Type: Consults Filed: 03/02/2023 5:20 PM Note Text: [facility] STAFF PHYSICIAN NOTE OF PERSONAL INVOLVEMENT IN CARE I have reviewed the history and physical obtained and documented by my colleague and personally interviewed, examined and reviewed records/data/labs/radio graphs. I personally participated in the saucedo components and I agree with the history/physical examination, data assessment, diagnosis and plan as outlined except where differences are stated below. I have discussed the case and management of the patient's care. IMPRESSION: # Chronic N/V # Chronic Constipation # Hyperglycemia Likely multifactorial N/V due to constipation and hyperglycemia. Possible GP, although GES not recommended acutely given active reglan and probable obstipation. Recent EGD showed gastritis and esophagitis. No abdominal imaging performed. --KUB --Bowel cleanse --Supportive measures as noted Updated KUB changed to CTAP given worsening abdominal pain, and persistent NV. Gen Bradford MD Staff, Gastroenterology Gastroenterology Consult Service Date of Service March 02, 2023 Patient: Ghislaine Givens Medical Record: [id number] Reason for Consult: Abdominal pain, vomiting Requesting Service: GIM Consultation requested by Dr. Kelley Lopez for an opinion regarding abdominal pain, vomiting. My final recommendations will be communicated back to the requesting physician by way of shared medical record. CC: Abdominal pain, vomiting History of Present Illness: Ghislaine Givens is a 33 year old with a past medical history of bipolar 1 disorder, depression, diabetes mellitus, insomnia and chronic abdominal pain/nausea/vomiting who presents for long standing history of nausea, vomiting and abdominal pain. She had recent EGD on 02/19/2023 showing mild gastritis and an esophageal ulcer at [facility]. She was escorted down from Dr. Doran's office by nursing staff due to appearing in acute distress while vomiting. She states too many episodes to count for vomiting and maybe a little when asked about hematemesis by ED staff. Per ED nursing note, the patient has not smoked in the last 3 months. GI was consulted for abdominal pain, vomiting. The patient was very tearful throughout history and exam. She notes symptoms started about 3 months ago and during this time she quit marijuana use. She states nausea with vomiting daily worse with PO intake with the colors ranging from green to yellow to intermittent blood. She states nausea and vomiting improves with pain meds and hot showers. She notes generalized abdominal pain improves with pain meds. The pain is 8-10/10 normally and unable to describe the pain. She notes the pain is constant. Other associated symptoms are heart burn, regurgitation, loss of appetite, early satiety and intermittent chest pain with shortness of breath. She notes tums does not relieve her reflux symptom. She states last bowel movement was 2 weeks ago and is constipated. She is passing flatus. She is unable to state how often she had a bowel movement at this time. She notes unintentional weight loss, however unable to say how much she has lost. She denies dysphagia, odynophagia, fevers, chills, night sweats, diarrhea, melena or hematochezia. She quit tobacco several weeks ago. Last use of marijuana was 3 months prior and denies other illicit drug use. She denies ETOH use. She denies any family history of GI cancers. She denies blood thinners or NSAIDs. She had prior EGD but never had a colonoscopy. She is willing for scopes if recommended. 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 Family History: FAMILY HISTORY Problem Relation Age of Onset Diabetes Mother Hypertension Mother Heart Maternal Grandmother Heart Maternal Grandfather other (bipolar [Other]) Mother Heart Paternal Grandmother Hypertension Paternal Grandmother Diabetes Paternal Grandmother Diabetes Paternal Aunt Cancer Mother Lung Arthritis Paternal Aunt Social History: Social History Tobacco Use Smoking status: Every Day Packs/day: 1.50 Years: 3.00 Additional pack years: 0.00 Total pack years: 4.50 Types: Cigarettes Smokeless tobacco: Never Substance Use Topics Alcohol use: Not Currently Comment: rare Drug use: Not Currently Types: Marijuana Comment: Last 2 months ago Allergies: ALLERGIES No Known Allergies Medications: Prior to Admission Medications: polyethylene glycol 3350 (MIRALAX) 17 gram/dose powderTake 17 g by mouth once daily. Dissolve dose in 4 - 8 ounces of liquid and take as directed. Patient (more content not included)... [facility] HISTORY PHYSICALon HISTORY PHYSICAL HNO ID: [id number] Author: Kelley Lopez MD Service: ? Author Type: Physician Type: HANDP Filed: 03/02/2023 4:08 PM Note Text: HISTORY AND PHYSICAL EXAMINATION SERVICE DATE: 03/02/2023 SERVICE TIME: 4:03 PM PRIMARY CARE PHYSICIAN: Amy Solorzano NP ASSESSMENT AND PLAN Patient Active Hospital Problem List: Intractable nausea and vomiting (02/18/2023) DM2 (diabetes mellitus, type 2) (HCC) (03/16/2013) HLD (hyperlipidemia) (11/27/2013) Obesity, Class I, BMI 30-34.9 (02/18/2023) Abdominal pain (03/01/2023) Constipation (03/02/2023) Anxiety and depression (03/02/2023) Borderline personality disorder (HCC) (03/02/2023) Plan: Patient Active Hospital Problem List: 1. Intractable nausea and vomiting GI was consulted. Gastric emptying studies as outpatient. Symptom control. Continue with IVF. Monitor weights and IANDO. Monitor electrolytes and correct as needed. 2. Abdominal pain POA: Yes No narcotics. Physical examination is benign. 3. Obesity, Class I, BMI 30-34.9 POA: Yes Management as outpatient. 4. DM2 (diabetes mellitus, type 2) ([facility]) POA: Yes Monitor blood sugars closely. Use ISS as needed. Continue with diabetic medications. Continue with carb-controlled diet. 5. HLD (hyperlipidemia) POA: Yes Continue with the same medications. 6. Constipation POA: Yes Laxatives. GI on case. 7. Anxiety and depression POA: Yes Psychiatry consult. 8. Borderline personality disorder (HCC) POA: Yes Psychiatry consult. 9. History of THC use 10. History of gastritis with recent EGD: PPI BID. Discussed with ER physician in details. SUBJECTIVE CHIEF COMPLAINT: Nausea and vomiting. HPI: 33-year-old female with past medical history of intractable nausea and vomiting, uncontrolled insulin-dependent diabetes mellitus, previous marijuana and tobacco abuse, depression and anxiety, severe protein calorie malnutrition presents with complaint of 3 months of nausea, vomiting and abdominal pain. Patient was at gastroenterology appointment this morning, but was tearful and persistently vomiting so directed to come down to emergency department instead of office evaluation. 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 Vomiting too frequent to count and constant for 3 months. 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 She complaints of abdominal pain which is generalized and unchanged for 3 months. No fever or chills, hematemesis, diarrhea, melena, BRBPR, urinary symptoms. She does endorse constipation for 2 weeks. She is passing gas without problem. She states she was prescribed stool softeners and laxatives during [facility] stay however she refuses to take them because she feels they worsen abdominal pain. She was also prescribed narcotic pain medication for home which she states she has been taking. PAST MEDICAL HISTORY: PAST MEDICAL HISTORY Diagnosis Date Bipolar 1 disorder ([facility]) 2007 Depression Diabetes mellitus (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 FAMILY HISTORY: FAMILY HISTORY Problem Relation Age of Onset Diabetes Mother Hypertension Mother Heart Maternal Grandmother Heart Maternal Grandfather other (bipolar [Other]) Mother Heart Paternal Grandmother Hypertension Paternal Grandmother Diabetes Paternal Grandmother Diabetes Paternal Aunt Cancer Mother Lung Arthritis Paternal Aunt SOCIAL HISTORY: Social History Tobacco Use Smoking status: Every Day Packs/day: 1.50 Years: 3.00 Additional pack years: 0.00 Total pack years: 4.50 Types: Cigarettes Smokeless tobacco: Never Substance Use Topics Alcohol use: Not Currently Comment: rare Drug use: Not Currently Types: Marijuana Comment: Last 2 months ago MEDICATIONS: Prior to Admission Medications polyethylene glycol 3350 (MIRALAX) 17 gram/dose powder, Take 17 g by mouth once daily. Dissolve dose in 4 - 8 ounces of liquid and take as directed. Patient not started yet., Disp: , Rfl: , Unknown traZODone HCl (DESYREL) 300 mg tablet, Take 300 mg by mouth daily at bedtime., Disp: , Rfl: metFORMIN (GLUCOPHAGE) 500 mg tablet, One pill by mouth daily w/ breakfast X 1 week; then increase to twice daily w/ meals. (Patient taking differently: Take 500 mg by mouth twice daily with meals.), Disp: 60 tablet, Rfl: 3, Unknown albuterol HFA (PROAIR HFA) 90 mcg/actuation inhaler, Inhale 2 Puffs as instructed every 4 hours as needed., Disp: 18 g, Rfl: 0, Unknown insulin glargine 100 unit/mL (3 mL), Inject 10 Units subcutaneously twice daily., Disp: 1 Each, Rfl: 3, Unknown pantoprazole DR (PROTONIX) 40 mg tablet, Take 1 tablet by mouth twice daily before meals (0600/1600). (Patient taking differently: Take 40 mg by mouth twice daily bef (more content not included)... Normal [facility] XR ABDOMEN 1V SUPINEon 03-02 XR ABDOMEN 1V SUPINE * * *Final Report* * * DATE OF EXAM: Mar 02 2023 5:16PM SPX [id number] - XR ABDOMEN 1V SUPINE / PROCEDURE REASON: Nausea/vomiting * * * * Physician Interpretation * * * * RESULT: XR ABDOMEN 1V SUPINE HISTORY: Nausea/vomiting COMPARISON: No FINDINGS: Scattered intraluminal gas and stool within nondistended colon No small bowel dilatation, fluid levels or extraluminal gas. Osseous structures are unremarkable. _ IMPRESSION: Normal intestinal gas pattern. No acute findings. Transcribed Using Voice Recognition Transcribe Date/Time: Mar 02 2023 5:24P Dictated by: JAY AGUERO MD This examination was interpreted and the report reviewed and electronically signed by: JAY AGUERO MD on Mar 02 2023 5:24PM EST [id number] Normal [facility] CBC W Auto Differential pane l (Bld)on 03-01-2023 Basophils (Bld) [#/Vol] 0.04 10*3/uL Normal <0.11 [facility] Comment on above: Order Comment: Speci men Type: BLOOD SPECIMENOrdering Facility: [facility] Address: [address] [place] [address] Performed By: #### 5 7021-8 ####[facility] LABORATORYCLIA [id number] [place] [address] [place] Basophils/100 WBC (Bld) 0.3 % Normal [facility] Comment on above: Order Comment: Speci men Type: BLOOD SPECIMENOrdering Facility: [facility] Address: [address] [place] [address] Performed By: #### 5 7021-8 ####[facility] LABORATORYCLIA [id number] [place] [address] [place] Differential cell count method Nom (Bld) Auto Normal [facility] Comment on above: Order Comment: Speci men Type: BLOOD SPECIMENOrdering Facility: [facility] Address: [address] [place] [address] Performed By: #### 5 7021-8 ####[facility] LABORATORYCLIA [id number] [place] [address] [place] Eosinophils (Bld) [#/Vol] 0.03 10*3/uL Normal <0.46 [facility] Comment on above: Order Comment: Speci men Type: BLOOD SPECIMENOrdering Facility: [facility] Address: [address] [place] [address] Performed By: #### 5 7021-8 ####[facility] LABORATORYCLIA [id number] [place] [address] [place] Eosinophils/100 WBC (Bld) 0.2 % Normal [facility] Comment on above: Order Comment: Speci men Type: BLOOD SPECIMENOrdering Facility: [facility] Address: [address] [address] Performed By: #### 5 7021-8 ####[facility] LABORATORYCLIA [id number] [place] [address] [place] Erythrocyte distribution width (RBC) [Ratio] 13.6 % Normal 11.5-15.0 [facility] Comment on above: Order Comment: Speci men Type: BLOOD SPECIMENOrdering Facility: [facility] Address: [address] [address] Performed By: #### 5 7021-8 ####[facility] LABORATORYCLIA [id number] [place] [address] [place] Hematocrit (Bld) [Volume fraction] 41.4 % Normal 36.0-46.0 [facility] Comment on above: Order Comment: Speci men Type: BLOOD SPECIMENOrdering Facility: [facility] Address: [address] [place] [address] Performed By: #### 5 7021-8 ####[facility] LABORATORYCLIA [id number] [place] [address] [place] Hemoglobin (Bld) [Mass/Vol] 13.6 g/dL Normal 11.5-15.5 [facility] Comment on above: Order Comment: Speci men Type: BLOOD SPECIMENOrdering Facility: [facility] Address: [address] [place] [address] Performed By: #### 5 7021-8 ####[facility] LABORATORYCLIA [id number] [place] [address] [place] Immature granulocytes (Bld) [#/Vol] 0.08 10*3/uL Normal <0.10 [facility] Comment on above: Order Comment: Speci men Type: BLOOD SPECIMENOrdering Facility: [facility] Address: [address] [place] [address] Performed By: #### 5 7021-8 ####[facility] LABORATORYCLIA [id number] [place] [address] [place] Immature granulocytes/100 WBC (Bld) 0.6 % Normal [facility] Comment on above: Order Comment: Speci men Type: BLOOD SPECIMENOrdering Facility: [facility] Address: [address] [place] [address] Performed By: #### 5 7021-8 ####[facility] LABORATORYCLIA [id number] [place] [address] [place] Lymphocytes (Bld) [#/Vol] 3.86 10*3/uL Normal 1.00-4.00 [facility] Comment on above: Order Comment: Speci men Type: BLOOD SPECIMENOrdering Facility: [facility] Address: [address] [address] Performed By: #### 5 7021-8 ####[facility] LABORATORYCLIA [id number] [address] [place] Lymphocytes/100 WBC (Bld) 28.3 % Normal [facility] Comment on above: Order Comment: Speci men Type: BLOOD SPECIMENOrdering Facility: [facility] Address: [address] [place] [address] Performed By: #### 5 7021-8 ####[facility] LABORATORYCLIA [id number] [place] [address] [place] MCH (RBC) [Entitic mass] 26.8 pg Normal 26.0-34.0 [facility] Comment on above: Order Comment: Speci men Type: BLOOD SPECIMENOrdering Facility: [facility] Address: [address] [place] [address] Performed By: #### 5 7021-8 ####[facility] LABORATORYCLIA [id number] [place] [address] [place] MCHC (RBC) [Mass/Vol] 32.9 g/dL Normal 30.5-36.0 [facility] Comment on above: Order Comment: Speci men Type: BLOOD SPECIMENOrdering Facility: [facility] Address: [address] [place] [address] Performed By: #### 5 7021-8 ####[facility] LABORATORYCLIA [id number] [place] [address] [place] MCV (RBC) [Entitic vol] 81.7 fL Normal 80.0-100.0 [facility] Comment on above: Order Comment: Speci men Type: BLOOD SPECIMENOrdering Facility: [facility] Address: [address] [place] [address] Performed By: #### 5 7021-8 ####[facility] LABORATORYCLIA [id number] [place] [address] [place] Monocytes (Bld) [#/Vol] 0.80 10*3/uL Normal <0.87 [facility] Comment on above: Order Comment: Speci men Type: BLOOD SPECIMENOrdering Facility: [facility] Address: [address] [place] [address] Performed By: #### 5 7021-8 ####[facility] LABORATORYCLIA [id number] [place] [address] [place] Monocytes/100 WBC (Bld) 5.9 % Normal [facility] Comment on above: Order Comment: Speci men Type: BLOOD SPECIMENOrdering Facility: [facility] Address: [address] [place] [address] Performed By: #### 5 7021-8 ####[facility] LABORATORYCLIA [id number] [place] [address] [place] Neutrophils (Bld) [#/Vol] 8.85 10*3/uL High 1.45-7.50 [facility] Comment on above: Order Comment: Speci men Type: BLOOD SPECIMENOrdering Facility: [facility] Address: [address] [place] [address] Performed By: #### 5 7021-8 ####[facility] LABORATORYCLIA [id number] [address] [place] Neutrophils/100 WBC (Bld) 64.7 % Normal [facility] Comment on above: Order Comment: Speci men Type: BLOOD SPECIMENOrdering Facility: [facility] Address: [address] [address] Performed By: #### 5 7021-8 ####[facility] LABORATORYCLIA [id number] [place] [address] [place] Nucleated RBC (Bld) [#/Vol] 10*3/uL Normal <0.01 [facility] Comment on above: Order Comment: Speci men Type: BLOOD SPECIMENOrdering Facility: [facility] Address: [address] [address] Performed By: #### 5 7021-8 ####[facility] LABORATORYCLIA [id number] [place] [address] [place] Nucleated RBC/100 WBC (Bld) [Ratio] 0.0 /100 WBC Normal [facility] Comment on above: Order Comment: Speci men Type: BLOOD SPECIMENOrdering Facility: [facility] Address: [address] [address] Performed By: #### 5 7021-8 ####[facility] LABORATORYCLIA [id number] [place] [address] [place] Platelet mean volume (Bld) [Entitic vol] 9.3 fL Normal 9.0-12.7 [facility] Comment on above: Order Comment: Speci men Type: BLOOD SPECIMENOrdering Facility: [facility] Address: [address] [place] [address] Performed By: #### 5 7021-8 ####[facility] LABORATORYCLIA [id number] [place] [address] [place] Platelets (Bld) [#/Vol] 495 10*3/uL High 150-400 [facility] Comment on above: Order Comment: Speci men Type: BLOOD SPECIMENOrdering Facility: [facility] Address: [address] [place] [address] Performed By: #### 5 7021-8 ####[facility] LABORATORYCLIA [id number] [place] [address] [place] RBC (Bld) [#/Vol] 5.07 10*6/uL Normal 3.90-5.20 [facility] Comment on above: Order Comment: Speci men Type: BLOOD SPECIMENOrdering Facility: [facility] Address: [address] [place] [address] Performed By: #### 5 7021-8 ####[facility] LABORATORYCLIA [id number] [place] [id number] [place] [facility] WBC (Bld) [#/Vol] 13.66 10*3/uL High 3.70-11.00 [facility] Comment on above: Order Comment: Speci men Type: BLOOD SPECIMENOrdering Facility: [facility] Address: [address] [place] [address] Performed By: #### 5 7021-8 ####[facility] LABORATORYCLIA [id number] [place] [id number] [place] [facility] Comprehensive metabolic 2000 panelon 03-01-2023 Albumin [Mass/Vol] 4.1 g/dL Normal 3.9-4.9 [facility] Comment on above: Order Comment: Speci men Type: BLOOD SPECIMENOrdering Facility: [facility] Address: [address] [place] [address] Performed By: #### B HB, 35137-1, 3040-3, 58794-3 ####[facility] LABORATORYCLIA [id number] [place] [address] [place] ALP [Catalytic activity/Vol] 102 U/L Normal 34-123 [facility] Comment on above: Order Comment: Speci men Type: BLOOD SPECIMENOrdering Facility: [facility] Address: [address] [place] [address] Performed By: #### B HB, 26993-5, 3040-3, 77814-4 ####[facility] LABORATORYCLIA [id number] [address] ALT [Catalytic activity/Vol] 10 U/L Normal 7-38 [facility] Comment on above: Order Comment: Speci men Type: BLOOD SPECIMENOrdering Facility: [facility] Address: [address] [address] Performed By: #### [place], 80327-3, 0-3, 67507-1 ####[facility] LABORATORYCLIA [id number] [place] [id number] [place] Anion gap [Moles/Vol] 15 mmol/L Normal 9-18 [facility] Comment on above: Order Comment: Speci men Type: BLOOD SPECIMENOrdering Facility: [facility] Address: [address] [place] [address] Performed By: #### B HB, 67366-1, 0-3, 97794-5 ####[facility] LABORATORYCLIA [id number] [place] [address] [place] AST [Catalytic activity/Vol] 12 U/L Low 13-35 [facility] Comment on above: Order Comment: Speci men Type: BLOOD SPECIMENOrdering Facility: [facility] Address: [address] [place] [address] Performed By: #### B HB, , 3039-3, 15768-6 ####[facility] LABORATORYCLIA [id number] [place] [address] [place] Bilirubin [Mass/Vol] 0.4 mg/dL Normal 0.2-1.3 [facility] Comment on above: Order Comment: Speci men Type: BLOOD SPECIMENOrdering Facility: [facility] Address: [address] [place] [address] Performed By: #### B HB, 42983-9, 0-3, 71479-1 ####[facility] TIFFANYCharan LABORATORYCLIA [id number] [place] [address] [place] Calcium [Mass/Vol] 9.8 mg/dL Normal 8.5-10.2 [facility] Comment on above: Order Comment: Speci men Type: BLOOD SPECIMENOrdering Facility: [facility] Address: [address] [place] [address] Performed By: #### B HB, 52146-2, 3040-3, 62247-8 ####[facility] LABORATORYCLIA [id number] [place] [address] [place] Chloride [Moles/Vol] 95 mmol/L Low 97-105 [facility] Comment on above: Order Comment: Speci men Type: BLOOD SPECIMENOrdering Facility: [facility] Address: [address] [place] [address] Performed By: #### B HB, 30540-4, 3040-3, 65069-1 ####[facility] LABORATORYCLIA [id number] [place] [address] [place] CO2 [Moles/Vol] 23 mmol/L Normal 22-30 [facility] Comment on above: Order Comment: Speci men Type: BLOOD SPECIMENOrdering Facility: [facility] Address: [address] [place] [address] Performed By: #### B HB, 66332-7, 3040-3, 13003-4 ####[facility] LABORATORYCLIA [id number] [place] [address] [place] Creatinine [Mass/Vol] 1.02 mg/dL High 0.58-0.96 [facility] Comment on above: Order Comment: Speci men Type: BLOOD SPECIMENOrdering Facility: [facility] Address: [address] [place] [address] Performed By: #### B HB, 92981-7, 3040-3, 92502-2 ####[facility] LABORATORYCLIA [id number] [place] [address] [place] Creatinine and Glomerular filtration rate.predicted panel (S/P/Bld) 76 mL/min/1.73m??? Normal >=60 [facility] Comment on above: Order Comment: Speci men Type: BLOOD SPECIMENOrdering Facility: [facility] Address: [address] [place] [address] Result Comment: Samreen mated Glomerular Filtration Rate (eGFR) is calculated using the 2021 CKD-EPI creatinine equation. This equation utilizes serum creatinine, sex, and age as parameters. The creatinine assay has traceable calibration to isotope dilution-mass spectrometry. Refer to KDIGO guidelines for clinical interpretation. In patients with unstable renal function, e.g. those with acute kidney injury, the eGFR may not accurately reflect actual GFR. Performed By: #### B HB, , 0-3, 32178-6 ####[facility] LABORATORYCLIA [id number] [place] [address] [place] Glucose [Mass/Vol] 258 mg/dL High 74-99 [facility] Comment on above: Order Comment: Mahogany vargas Type: BLOOD SPECIMENOrdering Facility: [facility] Address: [address] [place] [address] Result Comment: The [place] [employer] (ADA) provides guidance for cutoff values for fasting glucose and random glucose. The ADA defines fasting as no caloric intake for at least 8 hours. Fasting plasma glucose results between 100 to 125 mg/dL indicate increased risk for diabetes (prediabetes). Fasting plasma glucose results greater than or equal to 126 mg/dL meet the criteria for diagnosis of diabetes. In the absence of unequivocal hyperglycemia, results should be confirmed by repeat testing. In a patient with classic symptoms of hyperglycemia or hyperglycemic crisis, random plasma glucose results greater than or equal to 200 mg/dL meet the criteria for diagnosis of diabetes. Reference: Standards of Medical Care in Diabetes 2016, [place] [employer]. Diabetes Care. 2016.39(Suppl 1). Performed By: #### B HB, , 3039-09, ####[facility] LABORATORYCLIA [id number] [place] [address] [place] Potassium [Moles/Vol] 3.5 mmol/L Low 3.7-5.1 [facility] Comment on above: Order Comment: Mahogany vargas Type: BLOOD SPECIMENOrdering Facility: [facility] Address: [address] [place], [place] [id number] Performed By: #### B HB, , 3039-3, 07964-4 ####[facility] LABORATORYCLIA [id number] [place] [address] [place] Protein [Mass/Vol] 8.5 g/dL High 6.3-8.0 [facility] Comment on above: Order Comment: Speci men Type: BLOOD SPECIMENOrdering Facility: [facility] Address: [address] [place] [address] Performed By: #### B HB, 98176-1, 3040-3, 97581-2 ####[facility] LABORATORYCLIA [id number] [address] [place] [facility] Sodium [Moles/Vol] 133 mmol/L Low 136-144 [facility] Comment on above: Order Comment: Speci men Type: BLOOD SPECIMENOrdering Facility: [facility] Address: [address] [place] [address] Performed By: #### B HB, 63268-7, 3040-3, 24756-4 ####[facility] LABORATORYCLIA [id number] [place] [address] [place] Urea nitrogen [Mass/Vol] 11 mg/dL Normal - [facility] Comment on above: Order Comment: Speci men Type: BLOOD SPECIMENOrdering Facility: [facility] Address: [address] [place] [address] Performed By: #### B HB, 42877-9, 3040-3, 48720-7 ####[facility] LABORATORYCLIA [id number] [place] [address] [place] ECG COMPLETEon 03-01-2023 ECG COMPLETE Ventricular Rate : 8 3 BPM Atrial Rate : 83 BPM P-R Interval : 126 ms QRS Duration : 90 ms Q-T Interval : 358 ms QTC Calculation(Bazett) : 420 ms Calculated P Ruso : 5 degrees Calculated R Ruso : 1 degrees Calculated T Ruso : 13 degrees NORMAL SINUS RHYTHM MINIMAL VOLTAGE CRITERIA FOR LVH, MAY BE NORMAL VARIANT ( R in aVL ) NONSPECIFIC T WAVE ABNORMALITY ABNORMAL ECG NO PREVIOUS ECGS AVAILABLE Confirmed by ARABELLA SARMIENTO DO ([id number]), primer expeditor and drier RAFIQ GARVEY ([id number]) on 03/02/2023 7:20:55 AM NAME : GHISLAINE GIVENS PID : [id number] : 1990 Gender : Female Race : ORD : [id number] Procedure Date : Mar 01 2023 11:58:01 Edit Date : Mar 02 2023 07:20:56 Diagnosis: NORMAL SINUS RHYTHM MINIMAL VOLTAGE CRITERIA FOR LVH, MAY BE NORMAL VARIANT ( R in aVL ) NONSPECIFIC T WAVE ABNORMALITY ABNORMAL ECG NO PREVIOUS ECGS AVAILABLE Confirmed by ARABELLA SARMIENTO DO ([id number]), primer expeditor and drier RAFIQ GARVEY ([id number]) on 03/02/2023 7:20:55 AM Test Reason : Chest Pain Location : 1 : 1 ED Overread By : ARABELLA SARMIENTO DO Edited By : RAFIQ GARVEY Referred By : , Acquired by : , [facility] ED NOTEon 03-01-2023 ED NOTE HNO ID: [id number] Author: Gayathri Bruno RN Service: ? Author Type: Registered Nurse Type: ED Notes Filed: 03/01/2023 5:12 PM Note Text: NG tube removed without complications. [facility] ED NOTE HNO ID: [id number] Author: Luzma Sen RN Service: Emergency Medicine Author Type: Registered Nurse Type: ED Notes Filed: 03/01/2023 5:05 PM Note Text: Patient crying and yelling in room to take out her NG tube. Provider aware. [facility] ED NOTE HNO ID: [id number] Author: Dewayne Gallagher RN Service: ? Author Type: Registered Nurse Type: ED Notes Filed: 03/01/2023 11:20 AM Note Text: Pt has longstanding pmh abd pain with n/v, had upper gi scope done at [facility] 02/19/23 that showed mild gastritis. Pt was in [facility] office for first visit, escorted down here by nursing staff. Pt denies diarrhea, sts too many episodes of vomiting to count, sts maybe a little when asked about hematemesis. Pt sts she hasnt smoked thc in 3 mos since all this started, sts ongoing issue for past 3 mos. [facility] ED PROV NOTEon 03-01-2023 ED PROV NOTE HNO ID: [id number] Author: Arabella Sarmiento DO Service: Emergency Medicine Author Type: Physician Type: ED Provider Notes Filed: 03/03/2023 3:15 PM Note Text: ED Provider Note Patient Name: Ghislaine Givens : 1990 SERVICE DATE: 03/01/23 History Patient presents with: abd pain with n/v 33-year-old female with past medical history of intractable nausea and vomiting, uncontrolled insulin-dependent diabetes mellitus, previous marijuana and tobacco abuse, depression and anxiety, severe protein calorie malnutrition presents with complaint of 3 months of nausea, vomiting and abdominal pain. Patient was at gastroenterology appointment this morning, but was tearful and persistently vomiting so directed to come down to emergency department instead of office evaluation. 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 Vomiting too frequent to count and constant for 3 months. 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 She complaints of abdominal pain which is generalized and unchanged for 3 months. No fever or chills, hematemesis, diarrhea, melena, BRBPR, urinary symptoms. She does endorse constipation for 2 weeks. She is passing gas without problem. She states she was prescribed stool softeners and laxatives during [facility] stay however she refuses to take them because she feels they worsen abdominal pain. She was also prescribed narcotic pain medication for home which she states she has been taking. 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 FAMILY HISTORY Problem Relation Age of Onset Diabetes Mother Hypertension Mother Heart Maternal Grandmother Heart Maternal Grandfather other (bipolar [Other]) Mother Heart Paternal Grandmother Hypertension Paternal Grandmother Diabetes Paternal Grandmother Diabetes Paternal Aunt Cancer Mother Lung Arthritis Paternal Aunt Social History Tobacco Use Smoking status: Every Day Packs/day: 1.50 Years: 3.00 Additional pack years: 0.00 Total pack years: 4.50 Types: Cigarettes Smokeless tobacco: Never Substance and Sexual Activity Alcohol use: Not Currently Comment: rare Drug use: Not Currently Types: Marijuana Comment: Last 2 months ago Sexual activity: Not Currently Partners: Male ALLERGIES No Known Allergies Review of Systems Constitutional: Negative for chills, fatigue and fever. HENT: Negative for congestion, ear pain, rhinorrhea, sneezing, sore throat and voice change. Eyes: Negative for discharge and redness. Respiratory: Negative for cough, chest tightness, shortness of breath, wheezing and stridor. Cardiovascular: Negative for chest pain, palpitations and leg swelling. Gastrointestinal: Positive for abdominal pain, constipation and nausea. Negative for abdominal distention, anal bleeding, blood in stool, diarrhea, rectal pain and vomiting. Endocrine: Negative. Negative for polydipsia, polyphagia and polyuria. Genitourinary: Negative for difficulty urinating, dysuria, flank pain, frequency, hematuria and urgency. Musculoskeletal: Negative for arthralgias, back pain and myalgias. Skin: Negative for rash. Neurological: Negative for dizziness, syncope, light-headedness, numbness and headaches. Psychiatric/Behavioral: Negative for agitation, behavioral problems and confusion. Physical Exam Vitals [03/01/23 1117] BP Pulse Temp Temp src Resp SpO2 Weight Height 126/72 (!) 97 36.4 ?C (97.5 ?F) Temporal 18 100 % 90.7 kg (200 lb) 1.702 m (5' 7) Physical Exam Vitals and nursing note reviewed. Constitutional: General: She is not in acute distress. Appearance: Normal appearance. She is obese. She is not ill-appearing, toxic-appearing or diaphoretic. Comments: Vomiting on arrival, non toxic. Tearful. HENT: Head: Normocephalic and atraumatic. Mouth/Throat: Mouth: Mucous membranes are moist. Eyes: General: No scleral icterus. Right eye: No discharge. Left eye: No discharge. Extraocular Movements: Extraocular movements intact. Conjunctiva/sclera: Conjunctivae normal. Pupils: Pupils are equal, round, and reactive to light. Cardiovascular: Rate and Rhythm: Normal rate and regular rhythm. Pulses: Normal pulses. Heart sounds: Normal heart sounds. No murmur heard. No friction rub. No gallop. Pulmonary: Effort: Pulmonary effort is normal. No respiratory distress. Breath sounds: Normal breath sounds. No stridor. No wheezing, rhonchi or rales. Abdominal: General: There is no distension. Palpations: Abdomen is soft. There is no mass. Tenderness: There is no abdomin (more content not included)... Normal [facility] KETONES/ACETONE/BHBon 2022 Beta hydroxybutyrate [Moles/Vol] 0.70 mmol/L High <0.28 [facility] Comment on above: Order Comment: Speci men Type: BLOOD SPECIMENOrdering Facility: [facility] Address: [address] [place] [address] Performed By: #### B [place], 90106-7, 3040-3, 88298-0 ####[facility] LABORATORYCLIA [id number] [place] [id number] [place] Lipase SerPl-cCncon 03-01-20 23 Lipase [Catalytic activity/Vol] 57 U/L Normal 16-61 [facility] Comment on above: Order Comment: Speci men Type: BLOOD SPECIMENOrdering Facility: [facility] Address: [address] [place] [address] Performed By: #### B GARDENIA, 75624-6, 0-3, 14873-1 ####[facility] LABORATORYCLIA [id number] [place] [address] [place] Magnesium SerPl-mCncon 03-01 Magnesium [Mass/Vol] 1.7 mg/dL Normal 1.7-2.3 [facility] Comment on above: Order Comment: Speci men Type: BLOOD SPECIMENOrdering Facility: [facility] Address: [address] [place] [address] Performed By: #### B HB, 97676-2, 0-3, 84914-6 ####[facility] LABORATORYCLIA [id number] [place] [address] [place] TOX SCREEN ROUT URon 023 Amphetamines Confirm (U) [Mass/Vol] Negative Normal Negative [facility] Comment on above: Order Comment: Speci men Type: URINE SPECIMENOrdering Facility: [facility] Address: [address] [place] [address] Result Comment: Cuto ff threshold at 1000 ng/mL. Performed By: #### U TOX2 ####[facility] LABORATORYCLIA [id number] [place] [address] [place] BARBITURATES, URINE Negative Normal Negative [facility] Comment on above: Order Comment: Speci men Type: URINE SPECIMENOrdering Facility: [facility] Address: [address] [place] [address] Result Comment: Cuto ff threshold at 200 ng/mL. Performed By: #### U TOX2 ####[facility] LABORATORYCLIA [id number] [place] [address] [place] BENZODIAZEPINES, UR Negative Normal Negative [facility] Comment on above: Order Comment: Speci men Type: URINE SPECIMENOrdering Facility: [facility] Address: [address] [place] [address] Result Comment: Cuto ff threshold at 200 ng/mL. Performed By: #### U TOX2 ####[facility] LABORATORYCLIA [id number] [place] [address] [place] Cannabinoids Screen Ql (U) Negative Normal Negative [facility] Comment on above: Order Comment: Speci men Type: URINE SPECIMENOrdering Facility: [facility] Address: [address] [place] [address] Result Comment: Cuto ff threshold at 50 ng/mL. Performed By: #### U TOX2 ####[facility] LABORATORYCLIA [id number] [place] [address] [place] Cocaine Ql (U) Negative Normal Negative [facility] Comment on above: Order Comment: Speci men Type: URINE SPECIMENOrdering Facility: [facility] Address: [address] [place] [address] Result Comment: Cuto ff threshold at 300 ng/mL. Performed By: #### U TOX2 ####[facility] LABORATORYCLIA [id number] [place] [address] [place] Ethanol (U) [Mass/Vol] <11 Normal <[address] [facility] Comment on above: Order Comment: Speci men Type: URINE SPECIMENOrdering Facility: [facility] Address: [address] [place] [address] Performed By: #### U TOX2 ####[facility] LABORATORYCLIA [id number] [address] [place] Opiates Screen Ql (U) Positive Abnormal Negative [facility] Comment on above: Order Comment: Speci men Type: URINE SPECIMENOrdering Facility: [facility] Address: [address] [place] [address] Result Comment: Cuto ff threshold at 300 ng/mL. Performed By: #### U TOX2 ####[facility] LABORATORYCLIA [id number] [address] [place] oxyCODONE cutoff Screen (U) [Mass/Vol] Negative Normal Negative [facility] Comment on above: Order Comment: Speci men Type: URINE SPECIMENOrdering Facility: [facility] Address: [address] [place] [address] Result Comment: Cuto ff threshold at 100 ng/mL. Performed By: #### U TOX2 ####[facility] LABORATORYCLIA [id number] [address] STATES [facility] Phencyclidine Ql (U) Negative Normal Negative [facility] Comment on above: Order Comment: Speci men Type: URINE SPECIMENOrdering Facility: [facility] Address: [address] [place] [address] Result Comment: Cuto ff threshold at 25 ng/mL. Performed By: #### U TOX2 ####[facility] LABORATORYCLIA [id number] [address] [place] Urinalysis complete panel (U )on 03-01-2023 Bacteria LM.HPF (Urine sed) [#/Area] Moderate Abnormal None Seen [facility] Comment on above: Order Comment: Speci men Type: URINE SPECIMENOrdering Facility: [facility] Address: [address] [place] [address] Performed By: #### 2 4356-8 ####[facility] LABORATORYCLIA [id number] [place] [address] [place] Bilirubin Ql (U) 1+ Abnormal Negative [facility] Comment on above: Order Comment: Speci men Type: URINE SPECIMENOrdering Facility: [facility] Address: [address] [place] [address] Result Comment: Sugg est correlation with clinical findings and serum bilirubin if clinically indicated. Performed By: #### 2 4356-8 ####[facility] LABORATORYCLIA [id number] [place] [address] [place] Clarity (Unsp spec) Cloudy Abnormal Clear [facility] Comment on above: Order Comment: Speci men Type: URINE SPECIMENOrdering Facility: [facility] Address: [address] [place] [address] Performed By: #### 2 4356-8 ####[facility] LABORATORYCLIA [id number] [address] [place] Color (U) Yellow Normal Yellow [facility] Comment on above: Order Comment: Speci men Type: URINE SPECIMENOrdering Facility: [facility] Address: [address] [place] [address] Performed By: #### 2 4356-8 ####[facility] LABORATORYCLIA [id number] [place] [address] [place] Epithelial cells LM.HPF (Urine sed) [#/Area] Many Normal [facility] Comment on above: Order Comment: Speci men Type: URINE SPECIMENOrdering Facility: [facility] Address: [address] [place] [address] Result Comment: Few Performed By: #### 2 4356-8 ####[facility] LABORATORYCLIA [id number] [place] [address] [place] Glucose Test strip (U) [Mass/Vol] Trace Abnormal Negative [facility] Comment on above: Order Comment: Speci men Type: URINE SPECIMENOrdering Facility: [facility] Address: [address] [place] [address] Performed By: #### 2 4356-8 ####[facility] LABORATORYCLIA [id number] [address] [place] Hemoglobin Ql (U) Negative Normal Negative, Trace [facility] Comment on above: Order Comment: Speci men Type: URINE SPECIMENOrdering Facility: [facility] Address: [address] [place] [address] Performed By: #### 2 4356-8 ####[facility] LABORATORYCLIA [id number] [place] [address] [place] Hyaline casts (Urine sed) [#/Area] 1-3 /LPF Abnormal 0 /LPF [facility] Comment on above: Order Comment: Speci men Type: URINE SPECIMENOrdering Facility: [facility] Address: [address] [place] [address] Performed By: #### 2 4356-8 ####[facility] LABORATORYCLIA [id number] [address] [place] Ketones Ql (U) Trace Abnormal Negative [facility] Comment on above: Order Comment: Speci men Type: URINE SPECIMENOrdering Facility: [facility] Address: [address] [place] [address] Performed By: #### 2 4356-8 ####[facility] LABORATORYCLIA [id number] [address] Leukocyte esterase Test strip Ql (U) Negative Normal Negative [facility] Comment on above: Order Comment: Speci men Type: URINE SPECIMENOrdering Facility: [facility] Address: [address] [place] [address] Performed By: #### 2 4356-8 ####[facility] LABORATORYCLIA [id number] [place] [address] [place] Nitrite Ql (U) Negative Normal Negative [facility] Comment on above: Order Comment: Speci men Type: URINE SPECIMENOrdering Facility: [facility] Address: [address] [place] [address] Performed By: #### 2 4356-8 ####[facility] LABORATORYCLIA [id number] [address] [place] pH (U) 5.5 [pH] Normal 5.0-8.0 [facility] Comment on above: Order Comment: Speci men Type: URINE SPECIMENOrdering Facility: [facility] Address: [address] [place] [address] Performed By: #### 2 4356-8 ####[facility] LABORATORYCLIA [id number] [place] [address] [place] Protein (U) [Mass/Vol] 2+ Abnormal Negative So [facility] Comment on above: Order Comment: Speci men Type: URINE SPECIMENOrdering Facility: [facility] Address: [address] [place] [address] Performed By: #### 2 4356-8 ####[facility] LABORATORYCLIA [id number] [place] [address] [place] RBC LM.HPF (Urine sed) [#/Area] 0-3 /HPF Normal 0-3 /HPF [facility] Comment on above: Order Comment: Speci men Type: URINE SPECIMENOrdering Facility: [facility] Address: [address] [place] [address] Performed By: #### 2 4356-8 ####[facility] LABORATORYCLIA [id number] [address] [place] Specific gravity (U) [Rel density] >=1.030 High 1.005-1.030 [facility] Comment on above: Order Comment: Speci men Type: URINE SPECIMENOrdering Facility: [facility] Address: [address] [place] [address] Performed By: #### 2 4356-8 ####[facility] LABORATORYCLIA [id number] [address] [place] Urobilinogen Ql (U) 1.0 EU/dL Normal 0.2-1.0 EU/dL [facility] Comment on above: Order Comment: Speci men Type: URINE SPECIMENOrdering Facility: [facility] Address: [address] [place] [address] Performed By: #### 2 4356-8 ####[facility] LABORATORYCLIA [id number] [place] [address] [place] WBC LM.HPF (Urine sed) [#/Area] 0-5 /HPF Normal 0-5 /HPF [facility] Comment on above: Order Comment: Speci men Type: URINE SPECIMENOrdering Facility: [facility] Address: [place] [address] Performed By: #### 2 4356-8 ####[facility] LABORATORYCLIA [id number] [address] [place] Absolute lymphocyte countOrd ered By: Perico Norman on 02-26-2023 Lymphocytes Auto (Unsp spec) [#/Vol] 2.45 10*3/uL 0.83-4.51 [facility] Basophil percentageOrdered B y: Perico Norman on 02-26-2023 Basophil percentage 0-5 SEEN /hpf 0-[address] [facility] Basophil percentage 271 mg/dL 74-106 [facility] Basophil percentage 9.3 g/dL 6.4-8.2 [facility] Basophil percentage 0.80 mg/dL 0.20-1.00 [facility] Basophil percentage 131 mmol/L 136-145 [facility] Basophil percentage 3.4 mmol/L 3.5-5.1 [facility] Basophil percentage 98 mmol/L 98-107 [facility] Basophils (Bld) [#/Vol] 16.2 10*3/uL 4.4-11.0 [facility] Basophils (Bld) [#/Vol] 12.3 10*3/uL 2.0-7.7 [facility] Basophils/100 WBC (Bld) 75.8 % 47-70 [facility] Basophils/100 WBC (Bld) 0.1 % 0-5 [facility] Basophils/100 WBC (Bld) 0.4 % 0-1 [facility] Bilirubin [Mass/Vol] 0.80 mg/dL 0.20-1.00 [facility] Comment on above: For patients on eltr ombopag therapy, use of [facility] TBIL is not recommended. Chloride [Moles/Vol] 98 mmol/L 98-107 [facility] Eosinophils/100 WBC (Bld) 0.1 % 0-5 [facility] Glucose [Mass/Vol] 271 mg/dL 74-106 [facility] Comment on above: Glucose result great er than or equal to 200 mg/dLsuggests DIABETES MELLITUS per A.D.A. criteria. Neutrophils (Bld) [#/Vol] 12.3 10*3/uL 2.0-7.7 [facility] Neutrophils/100 WBC (Bld) 75.8 % 47-70 [facility] Potassium [Moles/Vol] 3.4 mmol/L 3.5-5.1 [facility] Protein [Mass/Vol] 9.3 g/dL 6.4-8.2 [facility] Sodium [Moles/Vol] 131 mmol/L 136-145 [facility] WBC (Bld) [#/Vol] 16.2 10*3/uL 4.4-11.0 [facility] Beta hCG serum qualOrdered B y: Perico Norman on 02-26-2023 Beta HCG ( test) Ql Negative [facility] Bilirubin Test strip Ql (U)O rdered By: Perico Norman on 02-26-2023 Bilirubin Ql (U) Negative Negative [facility] Blood erythrocytes count (nu mber/volume)Ordered By: Perico Norman on 02-26-2023 RBC (Bld) [#/Vol] 4.97 10*6/uL 4.2-5.4 [facility] Blood hemoglobin measurement (mass/volume)Ordered By: Perico Norman on 02-26-2023 Hemoglobin (Bld) [Mass/Vol] 13.3 g/dL 12.0-15.0 [facility] Blood lymphocytes/100 leukoc ytesOrdered By: Perico Norman on 02-26-2023 Lymphocytes/100 WBC (Bld) 15.1 % 19-41 [facility] Blood monocytes/100 leukocyt esOrdered By: Perico Norman on 02-26-2023 Monocytes/100 WBC (Bld) 8.0 % 0-10 [facility] Blood platelet mean volumeOr dered By: Perico Norman on 02-26-2023 Platelet mean volume (Bld) [Entitic vol] 9.1 fL 6.2-12.0 [facility] Determination of erythrocyte mean corpuscular volume (MCV)Ordered By: Perico Norman on 02-26-2023 MCV (RBC) [Entitic vol] 80.9 fL 81-99 [facility] Direct bilirubinOrdered By: Perico Norman on 02-26-2023 Bilirubin.direct [Mass/Vol] 0.22 mg/dL 0.00-0.30 [facility] Hematocrit Auto (Bld) [Volum e fraction]Ordered By: Perico Norman on 02-26-2023 Hematocrit (Bld) [Volume fraction] 40.2 % 37-47 [facility] Ketones Test strip Ql (U)Ord ered By: Perico Norman on 02-26-2023 Ketones Ql (U) 15 mg/dl Negative [facility] Laboratory - Chemistry and C hemistry - challengeOrdered By: Perico Norman on 02-26-2023 ALP [Catalytic activity/Vol] 108 U/L 45-117 [facility] ALT [Catalytic activity/Vol] 17 U/L 13-56 [facility] CO2 [Moles/Vol] 22.0 mmol/L 21.0-32.0 [facility] Globulin (S) [Mass/Vol] 5.7 g/dL 2.2-4.2 [facility] Lipase [Catalytic activity/Vol] 64 U/L 13-75 [facility] Comment on above: Please note:LIPASE r evised reference range effective 22. New Lipase methodology. Expected to produce lower values than the previous assay method. NEW Reference Range: 13 - 75 U/L Magnesium [Mass/Vol] 2.0 mg/dL 1.6-2.6 [facility] Urea nitrogen/Creatinine [Mass ratio] 13.2 mg/mg 10-20 [facility] Laboratory - Hematology and Cell countsOrdered By: Perico Norman on 02-26-2023 Erythrocyte distribution width (RBC) [Entitic vol] 38.7 fL 35.1-43.9 [facility] Erythrocyte distribution width (RBC) [Ratio] 13.2 % 11.6-14.6 [facility] Immature granulocytes/100 WBC (Bld) 0.600 % 0.0-0.9 [facility] Comment on above: IG% - Immature Granu locytes (promyelocytes, myelocytes and metamyelocytes) > 1% indicates that a LEFT SHIFT is Present. MCH (RBC) [Entitic mass] 26.8 pg 27.0-32.0 [facility] Nucleated RBC/100 WBC (Bld) [Ratio] 0 % 0-5 [facility] MCHC Auto (RBC) [Mass/Vol]Or dered By: Perico Norman on 02-26-2023 MCHC (RBC) [Mass/Vol] 33.1 g/dL 32-36 [facility] Mucus LM Ql (Urine sed)Order ed By: Perico Norman on 02-26-2023 Mucus Ql (Urine sed) 0 SEEN /hpf [facility] Nitrite Test strip Ql (U)Ord ered By: Perico Norman on 02-26-2023 Nitrite Ql (U) Negative Negative [facility] No Panel InformationOrdered By: Perico Norman on 02-26-2023 Urine Transitional Epithelial Cells 0-5 SEEN /hpf 0-5 [facility] 0-5 SEEN /hpf 0-5 [facility] Estimated Creatinine Clearance Calc 50.20 ml/min [facility] Estimated GFR (MDRD) Amer 51 mL/min >60 [facility] Comment on above: GFR Calc Estimated GFR (MDRD) Non-Af Amer 42 mL/min >60 [facility] Comment on above: Non- GFR Calc 26.8 pg 27.0-32.0 [facility] 13.2 % 11.6-14.6 [facility] 38.7 fl 35.1-43.9 [facility] 0.600 % 0.0-0.9 [facility] 0 % 0-5 [facility] 42 mL/min >60 [facility] 51 mL/min >60 [facility] 50.20 ml/min [facility] 13.2 RATIO 10-20 [facility] 5.7 g/dL 2.2-4.2 [facility] 64 U/L 13-75 [facility] 108 U/L 45-117 [facility] 17 U/L 13-56 [facility] 2.0 mg/dL 1.6-2.6 [facility] 22.0 mmol/L 21.0-32.0 [facility] Platelets bldOrdered By: Bakari Norman on 02-26-2023 Platelets (Bld) [#/Vol] 483 10*3/uL 150-450 [facility] Protein Test strip Ql (U)Ord ered By: Perico Norman on 02-26-2023 Protein Ql (U) 30 mg/dl Negative [facility] Serum or plasma albumin hussein urement (mass/volume)Ordered By: Perico Norman on 02-26-2023 Albumin [Mass/Vol] 3.6 g/dL 3.2-5.0 [facility] Serum or plasma calcium hussein urement (mass/volume)Ordered By: Perico Norman on 02-26-2023 Calcium [Mass/Vol] 9.8 mg/dL 8.5-10.1 [facility] Serum or plasma creatinine m easurement (mass/volume)Ordered By: Perico Norman on 02-26-2023 Creatinine [Mass/Vol] 1.52 mg/dL 0.55-1.02 [facility] Comment on above: The validity of the calculated GFR & GFRAA in patients over 70 years has not been determined. Clinical correlation is essential. Serum or plasma urea nitroge n measurement (mass/volume)Ordered By: Perico Norman on 02-26-2023 Urea nitrogen [Mass/Vol] 20 mg/dL 7-18 [facility] Squamous epithelial cells de tection in urine sediment by light microscopyOrdered By: Perico Norman on 02-26-2023 Epithelial cells.squamous LM Ql (Urine sed) 0-5 SEEN /hpf 5-10 [facility] Thin prep Papanicolaou smear with manual screeningOrdered By: Perico Norman on 02-26-2023 Thin prep Papanicolaou smear with manual screening 12 U/L 15-37 [facility] Thin prep Papanicolaou smear with manual screening 11 5-15 [facility] Urine blood detectionOrdered By: Perico Norman on 02-26-2023 RBC Ql (U) 10 /ul Negative [facility] RBC Ql (U) 0 SEEN /hpf 0-5 [facility] Urine clarityOrdered By: Bakari Norman on 02-26-2023 Clarity (U) Clear Clear [facility] Urine color determinationOrd ered By: Perico Norman on 02-26-2023 Color (U) Yellow Yellow [facility] Urine glucose detectionOrder ed By: Perico Norman on 02-26-2023 Glucose Ql (U) 100 mg/dl Normal [facility] Urine leukocyte esterase det ection by dipstickOrdered By: Perico Norman on 02-26-2023 Leukocyte esterase Test strip Ql (U) 25 /ul Negative [facility] Urine pHOrdered By: Perico hernandez on 02-26-2023 pH (U) 5.0 [pH] 5.0 - 8.0 [facility] Urine sediment bacteria coun t by microscopy (number/high power field)Ordered By: Perico Norman on 02-26-2023 Bacteria LM.HPF (Urine sed) [#/Area] RARE /hpf None Seen [facility] Urine specific gravity measu rementOrdered By: Perico Norman on 02-26-2023 Specific gravity (U) [Rel density] 1.020 1.002-1.030 [facility] Urobilinogen Auto test strip Ql (U)Ordered By: Perico Norman on 02-26-2023 Urobilinogen Ql (U) Normal mg/dl Normal [facility] CBC + DIFFon 02-17-2023 Baso # 0.00 x10EE3/UL Normal 0.00 - 0.10 [facility] Comment on above: Performed By: #### 2 [id number] #### [facility],[address] [place] [address] Basophils/100 WBC (Bld) 0.4 % Normal 0.0 - 2.0 [facility] Comment on above: Performed By: #### 2 68161 #### [facility],[address] [place] [address] CBC + DIFF Normal [facility] Comment on above: Result Comment: CBC- COMPLETE BLOOD COUNT Performed By: #### 2 51190 #### [facility],[address] [place] [address] EO # 0.00 x10EE3/UL Normal 0.00 - 0.50 [facility] Comment on above: Performed By: #### 2 [id number] #### [facility],[address] [place] [address] Eosinophils/100 WBC (Bld) 0.2 % Normal 0.0 - 7.0 [facility] Comment on above: Performed By: #### 2 19534 #### [facility],[address] [place] [address] Erythrocyte distribution width (RBC) [Ratio] 15.1 % Normal 12.0 - 15.6 [facility] Comment on above: Performed By: #### 2 10168 #### [facility],[address] [place] [address] Hematocrit (Bld) [Volume fraction] 39.7 % Normal 34.0 - 46.0 [facility] Comment on above: Performed By: #### 2 99809 #### [facility] [facility] [place],[address] [place] [address] Hemoglobin (Bld) [Mass/Vol] 13.3 g/dL Normal 12.0 - 16.0 [facility] [place] Comment on above: Performed By: #### 2 40282 #### [facility] [place],[address] [place] [address] 71599 Lymph # 3.30 x10EE3/UL High 0.80 - 2.80 [facility] [place] Comment on above: Performed By: #### 2 03005 #### [facility] [place],[address] [place] [address] 93657 Lymphocytes/100 WBC (Bld) 30.5 % Normal 20.0 - 45.0 [facility] [place] Comment on above: Performed By: #### 2 22996 #### [facility] [place],[address] [place], [place] [id number] MANUAL DIFF N/A Normal [facility] [place] Comment on above: Performed By: #### 2 14461 #### [facility] [place],[address] [place] [address] MCH (RBC) [Entitic mass] 27 pg Normal 27 - 33 [facility] [place] Comment on above: Performed By: #### 2 94631 #### [facility] [place],[address] [place] [address] MCHC 33 X10 3 Normal 32 - 36 [facility] [place] Comment on above: Performed By: #### 2 31387 #### [facility] [place],[address] [place] [address] MCV (RBC) [Entitic vol] 80 fL Normal 80 - 99 [facility] Comment on above: Performed By: #### 2 13337 #### [facility] [place],[address] [place] [address] Bacon # 0.60 x10EE3/UL Normal 0.20 - 1.00 [facility] [place] Comment on above: Performed By: #### 2 62018 #### [facility] [place],[address] [place] [address] MONOS % 5.9 % Normal 0.0 - 10.0 [facility] [place] Comment on above: Performed By: #### 2 75301 #### [facility] [place],[address] [place] [address] Morphology Franky (Bld) [Interp] N/A Normal [facility] [place] Comment on above: Result Comment: {CD] Performed By: #### 2 87316 #### [facility] [place],[address] [place] [address] Neut # 6.90 x10EE3/UL Normal 1.50 - 7.10 [facility] [place] Comment on above: Performed By: #### 2 92710 #### [facility] [place],[address] [place] [address] Neutrophils/100 WBC (Bld) 63.0 % Normal 46.0 - 76.0 [facility] [place] Comment on above: Performed By: #### 2 36234 #### [facility] [place],[address] [place] [address] 03434 PLATELET 561 x10EE3/UL High 150 - 450 [facility] [place] Comment on above: Performed By: #### 2 94715 #### [facility] [place],[address] [place] [address] 66685 Platelet mean volume (Bld) [Entitic vol] 7.6 fL Normal 6.6 - 10.5 [facility] [place] Comment on above: Result Comment: AUTO MATED DIFFERENTIAL Performed By: #### 2 99524 #### [facility] [place],[address] [place] [address] 64562 RBC 4.95 x 10EE6/UL Normal 4.10 - 5.30 [facility] [place] Comment on above: Performed By: #### 2 16503 #### [facility] [place],[address] [place] [address] 04760 WBC 10.9 x 10EE3/UL High 4.5 - 10.8 [facility] [place] Comment on above: Performed By: #### 2 73369 #### [facility] [place],[address] [place] [address] 73777 CMP with eGFRon 02-17-2023 AGE 33 years Normal [facility] [place] Comment on above: Performed By: #### 2 98812 #### [facility] [place],[address] [place] [address] 51156 Albumin [Mass/Vol] 3.5 g/dL Normal 3.4 - 5.0 [facility] [place] Comment on above: Performed By: #### 2 14308 #### [facility] [place],[address] [place] [address] 29807 Albumin/Globulin [Mass ratio] 0.6 {ratio} Low 0.9 - 1.6 [facility] [place] Comment on above: Performed By: #### 2 78130 #### [facility] [place],[address] [place] [address] 24288 ALK PHOS 112 U/L Normal 46 - 116 [facility] [place] Comment on above: Performed By: #### 2 48119 #### [facility] [place],[address] [place] [address] 59390 ALT [Catalytic activity/Vol] 28 U/L Normal 14 - 59 [facility] [place] Comment on above: Performed By: #### 2 16270 #### [facility] [place],[address] [place] [address] 52634 Anion gap [Moles/Vol] 21 mmol/L High 10 - 20 [facility] Comment on above: Performed By: #### 2 90365 #### [facility] [place],[address] [place] [address] 54473 AST [Catalytic activity/Vol] 13 U/L Normal 13 - 39 [facility] [place] Comment on above: Performed By: #### 2 20608 #### [facility] [place],[address] [place] [address] 13879 B/C RATIO 12 ratio Normal 0 - 30 [facility] [place] Comment on above: Performed By: #### 2 18988 #### [facility] [place],[address] [place] [address] 39236 Bilirubin [Mass/Vol] 0.6 mg/dL Normal 0.2 - 1.0 [facility] [place] Comment on above: Performed By: #### 2 11492 #### [facility] [place],[address] [place] [address] 75825 Calcium [Mass/Vol] 9.6 mg/dL Normal 8.5 - 10.1 [facility] [place] Comment on above: Performed By: #### 2 38608 #### [facility] [place],[address] [place] [address] 62836 Chloride [Moles/Vol] 94 mmol/L Low 98 - 107 [facility] [place] Comment on above: Performed By: #### 2 83720 #### [facility] [place],[address] [place] [address] 88699 CMP with eGFR Normal [facility] [place] Comment on above: Result Comment: COMP REHENSIVE METABOLIC PANEL Performed By: #### 2 83087 #### [facility] [place],[address] [place] [address] 23393 CO2 [Moles/Vol] 23.7 mmol/L Normal 21.0 - 32.0 [facility] [place] Comment on above: Performed By: #### 2 08414 #### [facility] [place],[address] [place] [address] 94623 Creatinine [Mass/Vol] 1.18 mg/dL High 0.55 - 1.02 [facility] Comment on above: Performed By: #### 2 68315 #### [facility] [place],[address] [place] [address] 21662 eGFR 53 ML/MINUTE Low 60 - 999 [facility] [place] Comment on above: Performed By: #### 2 91694 #### [facility] [place],[address] [place] [address] 04831 GFR/1.73 sq M.predicted among non-blacks MDRD (S/P/Bld) [Vol rate/Area] mL/min/{1.73_m2} Normal 60 - 999 [facility] [place] Comment on above: Result Comment: ACCO RDING TO THE NATIONAL KIDNEY DISEASE EDUCATION PROGRAM(NKDE), A NORMAL eGFR IS A VALUE GREATER THAN OR EQUAL TO 60 ML/MIN/1.73 SQ METERS. CHRONIC KIDNEY DISEASE: <60mL/MIN/1.73 SQ METERS KIDNEY FAILURE: <15mL/MIN/1.73 SQ METERS THIS TEST SHOULD ONLY BE USED FOR PATIENTS 18 YEARS OF AGE AND OLDER. Performed By: #### 2 49686 #### [facility] [place],[address] [place] [address] 95918 Globulin (S) [Mass/Vol] 5.4 g/dL High 1.5 - 3.8 [facility] Comment on above: Performed By: #### 2 67113 #### [facility] [place],[address] [place] [address] 94567 Glucose [Mass/Vol] 306 mg/dL High 74 - 106 [facility] [place] Comment on above: Performed By: #### 2 99114 #### [facility] [place],[address] [place] [address] 42325 Potassium [Moles/Vol] 3.9 mmol/L Normal 3.5 - 5.1 [facility] Comment on above: Performed By: #### 2 99755 #### [facility] [place],[address] [place] [address] 38487 Protein [Mass/Vol] 8.9 g/dL High 6.4 - 8.2 [facility] [place] Comment on above: Performed By: #### 2 21312 #### [facility] [place],[address] [place] [address] 83352 Sodium [Moles/Vol] 135 mmol/L Low 136 - 145 [facility] [place] Comment on above: Performed By: #### 2 92523 #### [facility] [place],[address] [place] [address] 34527 Urea nitrogen [Mass/Vol] 14 mg/dL Normal 7 - 18 [facility] [place] Comment on above: Performed By: #### 2 69166 #### [facility] [place],[address] [place] [address] 87604 DRUG SCREEN URINE MEDICon AMPHETAMINES Negative Normal [facility] [place] Comment on above: Performed By: #### 2 00633 #### [facility] [place],[address] [place] [address] 19461 B-DIAZEPINES Negative Normal [facility] [place] Comment on above: Performed By: #### 2 86235 #### [facility] [place],[address] [place] [address] 57223 BARBITURATES Negative Normal [facility] [place] Comment on above: Performed By: #### 2 55770 #### [facility] [place],[address] [place] [address] 04082 COCAINE Negative Normal [facility] [place] Comment on above: Performed By: #### 2 36436 #### [facility] [place],[address] [place] [address] 27218 DRUG SCREEN URINE MEDIC Normal [facility] Comment on above: Result Comment: DRUG SCREEN - URINE Performed By: #### 2 00528 #### [facility] [place],[address] [place] [address] METHADONE Negative Normal [facility] [place] Comment on above: Performed By: #### 2 97660 #### [facility] [place],[address] [place] [address] OPIATES Negative Normal [facility] [place] Comment on above: Performed By: #### 2 01703 #### [facility] [place],[address] [place] [address] PCP Negative Normal [facility] [place] Comment on above: Performed By: #### 2 71588 #### [facility] [place],[address] [place] [address] THC Negative Normal [facility] [place] Comment on above: Result Comment: ERASTO ENTS RECEIVING PROTON PUMP INHIBITORS MAY DEMONSTRATE FALSE POSITIVE THC/CANNABINOID RESULTS. AN ALTERNATIVE CONFIRMATORY METHOD SHOULD BE CONSIDERED TO VERIFY POSITIVE RESULTS. Performed By: #### 2 71025 #### [facility] [place],[address] [place] [address] LIPASEon 02-17-2023 Lipase [Catalytic activity/Vol] 103.0 U/L Normal 73.0 - 393 [facility] [place] Comment on above: Performed By: #### 2 52841 #### [facility] [place],[address] [place] [address] URINEon 02-17-2023 Beta HCG ( test) Ql (U) Negative Normal NEGATIVE [facility] [place] Comment on above: Performed By: #### 2 77074 #### [facility] [place],[address] [place] [address] EXTERNAL QC DONE? YES Normal [facility] [place] Comment on above: Performed By: #### 2 38578 #### [facility] [place],[address] [place] [address] INTERNAL QC PASS Normal [facility] [place] Comment on above: Performed By: #### 2 70962 #### [facility] [place],[address] [place] [address] 10735 URINALYSISon 02-17-2023 Amorphous NONE Normal [facility] [place] Comment on above: Performed By: #### 2 02396 #### [facility] [place],[address] [place] [address] 62248 Bacteria TRACE Normal [facility] [place] Comment on above: Performed By: #### 2 63556 #### [facility] [place],[address] [place] [address] 25992 Bilirubin Ql (U) Negative Normal NORMAL: NEGATIVE [facility] [place] Comment on above: Performed By: #### 2 95767 #### [facility] [place],[address] [place] [address] 64308 Casts NONE Normal [facility] [place] Comment on above: Performed By: #### 2 78822 #### [facility] [place],[address] [place], [place] [id number] Clarity (U) sl.cloudy Normal NORMAL: CLEAR [facility] [place] Comment on above: Performed By: #### 2 79813 #### [facility] [place],[address] [place] [address] 83113 Color (U) jaqui Normal NORMAL: YELLOW [facility] [place] Comment on above: Performed By: #### 2 96550 #### [facility] [place],[address] [place] [address] 24381 Crystals LM Nom (Urine sed) NONE Normal [facility] [place] Comment on above: Performed By: #### 2 60458 #### [facility] [place],[address] [place] [address] 51465 Epi Cells FEW Normal [facility] [place] Comment on above: Performed By: #### 2 13974 #### [facility] [place],[address] [place] [address] 13115 Glucose Ql (U) 250 Abnormal NORMAL: NORMAL [facility] [place] Comment on above: Performed By: #### 2 38526 #### [facility] [place],[address] [place] [address] 13244 Hemoglobin Ql (U) Negative Normal NORMAL: NEGATIVE [facility] [place] Comment on above: Performed By: #### 2 58899 #### [facility] [place],[address] [place] [address] 09779 Ketone 150 Abnormal NORMAL: NEGATIVE [facility] [place] Comment on above: Performed By: #### 2 58355 #### [facility] [place],[address] [place] [address] 85400 Leukocytes 25 Abnormal NORMAL: NEGATIVE [facility] [place] Comment on above: Performed By: #### 2 80389 #### [facility] [place],[address] [place] [address] 86497 Mucous NONE Normal [facility] [place] Comment on above: Performed By: #### 2 12231 #### [facility] [place],[address] [place] [address] 87390 Nitrite Ql (U) Negative Normal NORMAL: NEGATIVE [facility] [place] Comment on above: Performed By: #### 2 64861 #### [facility] [place],[address] [place] [address] 69506 pH (U) 8 [pH] Normal NORMAL: 5.0-8.0 [facility] [place] Comment on above: Performed By: #### 2 85531 #### [facility] [place],[address] [place] [address] 84121 Protein Ql (U) 30 Abnormal NORMAL: NEGATIVE [facility] [place] Comment on above: Performed By: #### 2 80239 #### [facility] [place],[address] [place] [address] 29328 Rbc NONE Normal 0-3/hpf [facility] [place] Comment on above: Performed By: #### 2 93306 #### [facility] [place],[address] [place] [address] 61127 Sp [place] 1.010 Normal NORMAL: 1.010-1.030 [facility] [place] Comment on above: Performed By: #### 2 79650 #### [facility] [place],[address] [place] [address] Specimen Type UNSPECIFIED Normal [facility] [place] Comment on above: Performed By: #### 2 08999 #### [facility] [place],[address] [place] [address] Urinalysis dipstick W Reflex Microscopic panel (U) SEE BELOW Normal [facility] [place] Comment on above: Result Comment: MICR OSCOPIC Performed By: #### 2 17988 #### [facility] [place],[address] [place] [address] Urobilinog NORM Normal NORMAL: NORMAL [facility] [place] Comment on above: Performed By: #### 2 30447 #### [facility] [place],[address] [place] [address] Wbc 1-5 Normal 0-5/hpf [facility] [place] Comment on above: Performed By: #### 2 85387 #### [facility] [place],[address] [place] [address] Yeast NONE Normal [facility] [place] Comment on above: Performed By: #### 2 75906 #### [facility] [place],[address] [place] [address] .Auto Diffon 02-11-2023 Basophil, Absolute 0.1 10 3/mcL Normal 0.0-0.2 [facility] ([place]) Comment on above: Performed By: #### A DIFF, GFR, MDW, CMP, ANEU, CBC, LIP #### [address] [address] Basophils/100 WBC (Bld) 0.5 % Normal 0.0-2.5 A [facility] ([place]) Comment on above: Performed By: #### A DIFF, GFR, MDW, CMP, ANEU, CBC, LIP #### [address] [address] Eosinophil, Absolute 0.0 10 3/mcL Normal 0.0-0.4 [facility] ([place]) Comment on above: Performed By: #### A DIFF, GFR, MDW, CMP, ANEU, CBC, LIP #### [address] [address] Eosinophils/100 WBC (Bld) 0.2 % Normal 0.0-7.0 [facility] ([place]) Comment on above: Performed By: #### A DIFF, GFR, MDW, CMP, ANEU, CBC, LIP #### [address] [address] Lymphocyte, Absolute 4.2 10 3/mcL High 0.8-3.9 [facility] ([place]) Comment on above: Performed By: #### A DIFF, GFR, MDW, CMP, ANEU, CBC, LIP #### [address] [address] Lymphocytes/100 WBC (Bld) 32.7 % Normal 10.0-50.0 [facility] ([place]) Comment on above: Performed By: #### A DIFF, GFR, MDW, CMP, ANEU, CBC, LIP #### [address] [address] Monocyte, Absolute 0.9 10 3/mcL Normal 0.2-1.0 [facility] ([place]) Comment on above: Performed By: #### A DIFF, GFR, MDW, CMP, ANEU, CBC, LIP #### [address] [address] Monocytes/100 WBC (Bld) 7.0 % Normal 1.7-13.0 [facility] ([place]) Comment on above: Performed By: #### A DIFF, GFR, MDW, CMP, ANEU, CBC, LIP #### [address] [address] Neutrophils/100 WBC (Bld) 59.6 % Normal 37.0-80.0 [facility] ([place]) Comment on above: Performed By: #### A DIFF, GFR, MDW, CMP, ANEU, CBC, LIP #### [address] [address] Basophil, Absolute 0.1 10 3/mcL Normal 0.0-0.2 [facility] ([place]) Comment on above: Performed By: #### C MP, GFR, CBC, LIP, ADIFF, ANEUMDW #### [address] [address] Basophils/100 WBC (Bld) 0.6 % Normal 0.0-2.5 A [facility] ([place]) Comment on above: Performed By: #### C MP, GFR, CBC, LIP, ADIFF, ANEU, W #### [address] [address] Eosinophil, Absolute 0.0 10 3/mcL Normal 0.0-0.4 [facility] ([place]) Comment on above: Performed By: #### C MP, GFR, CBC, LIP, ADIFF, ANEUMDW #### [address] [address] Eosinophils/100 WBC (Bld) 0.1 % Normal 0.0-7.0 [facility] ([place]) Comment on above: Performed By: #### C MP, GFR, CBC, LIP, ADIFF, ANEUALDAIR #### [address] [address] Lymphocyte, Absolute 4.2 10 3/mcL High 0.8-3.9 [facility] ([place]) Comment on above: Performed By: #### C MP, GFR, CBC, LIP, ADIFF, ANEU, W #### [address] [address] Lymphocytes/100 WBC (Bld) 26.5 % Normal 10.0-50.0 [facility] ([place]) Comment on above: Performed By: #### C MP, GFR, CBC, LIP, ADIFF, ANEUMDW #### [address] [address] Monocyte, Absolute 1.0 10 3/mcL Normal 0.2-1.0 [facility] ([place]) Comment on above: Performed By: #### C MP, GFR, CBC, LIP, ADIFF, ANEUMDW #### [address] [address] Monocytes/100 WBC (Bld) 6.1 % Normal 1.7-13.0 A [facility] ([place]) Comment on above: Performed By: #### C MP, GFR, CBC, LIP, DESIRAE TORRES MDW #### [address] [address] Neutrophils/100 WBC (Bld) 66.7 % Normal 37.0-80.0 [facility] ([place]) Comment on above: Performed By: #### C MP, GFR, CBC, LIP, DESIRAE TORRES MDW #### [address] [address] .GFRon 02-11-2023 GFR 63 ml/min/1.73sqm Normal [facility] ([place]) Comment on above: Result Comment: GFR Population mean for , Non- Americans Ages 20-29 = 116 mL/min/1.73 sq.m. Ages 30-39 = 107 mL/min/1.73 sq.m. Ages 40-49 = 99 mL/min/1.73 sq.m. Ages 50-59 = 93 mL/min/1.73 sq.m. Ages 60-69 = 85 mL/min/1.73 sq.m. Ages 70+ = 75 mL/min/1.73 sq.m. Chronic Kidney Disease: Less than 60 mL/min/1.73 square meters End Stage Renal Disease: Less than 15 mL/min/1.73 square meters Performed By: #### A DIFF, GFR, MDW, CMP, ANEU, CBC, LIP #### [place] [id number] [place], [place] [address] GFR Non- 52 ml/min/1.73sqm Normal [facility] ([place]) Comment on above: Result Comment: GFR Population mean for , Non- Americans Ages 20-29 = 116 mL/min/1.73 sq.m. Ages 30-39 = 107 mL/min/1.73 sq.m. Ages 40-49 = 99 mL/min/1.73 sq.m. Ages 50-59 = 93 mL/min/1.73 sq.m. Ages 60-69 = 85 mL/min/1.73 sq.m. Ages 70+ = 75 mL/min/1.73 sq.m. Chronic Kidney Disease: Less than 60 mL/min/1.73 square meters End Stage Renal Disease: Less than 15 mL/min/1.73 square meters Performed By: #### A DIFF, GFR, MDW, CMP, ANEU, CBC, LIP #### [address] [address] GFR Non- 42 ml/min/1.73sqm Normal [facility] ([place]) Comment on above: Result Comment: GFR Population mean for , Non- Americans Ages 20-29 = 116 mL/min/1.73 sq.m. Ages 30-39 = 107 mL/min/1.73 sq.m. Ages 40-49 = 99 mL/min/1.73 sq.m. Ages 50-59 = 93 mL/min/1.73 sq.m. Ages 60-69 = 85 mL/min/1.73 sq.m. Ages 70+ = 75 mL/min/1.73 sq.m. Chronic Kidney Disease: Less than 60 mL/min/1.73 square meters End Stage Renal Disease: Less than 15 mL/min/1.73 square meters Performed By: #### A DIFF, GFR, MDW, CMP, ANEU, CBC, LIP #### [address] [address] GFR 51 ml/min/1.73sqm Normal [facility] ([place]) Comment on above: Result Comment: GFR Population mean for , Non- Americans Ages 20-29 = 116 mL/min/1.73 sq.m. Ages 30-39 = 107 mL/min/1.73 sq.m. Ages 40-49 = 99 mL/min/1.73 sq.m. Ages 50-59 = 93 mL/min/1.73 sq.m. Ages 60-69 = 85 mL/min/1.73 sq.m. Ages 70+ = 75 mL/min/1.73 sq.m. Chronic Kidney Disease: Less than 60 mL/min/1.73 square meters End Stage Renal Disease: Less than 15 mL/min/1.73 square meters Performed By: #### A DIFF, GFR, MDW, CMP, ANEU, CBC, LIP #### [place] [address] .MDWon 02-11-2023 Monocyte Distribution Width 19.69 Normal 0.00-20.00 [facility] ([place]) Comment on above: Result Comment: For ED adult patients suspected of sepsis, MDW<=20.0 does not rule out sepsis or risk of sepsis Performed By: #### A DIFF, GFR, MDW, CMP, ANEU, CBC, LIP #### [place] [address] .NEUABSon 02-11-2023 Neutrophil, Absolute 7.6 10 3/mcL High 2.9-6.2 [facility] ([place]) Comment on above: Performed By: #### A DIFF, GFR, MDW, CMP, ANEU, CBC, LIP #### [place] [address] Neutrophil, Absolute 10.5 10 3/mcL High 2.9-6.2 [facility] ([place]) Comment on above: Performed By: #### C MP, GFR, CBC, LIP, ADIFF, ANEU, MDW #### [place] [address] .Urinalysis Microscopic (AO) on 02-11-2023 UA Bacteria Trace Abnormal [facility] ([place]) Comment on above: Performed By: #### A DIFF, GFR, MDW, CMP, ANEU, CBC, LIP #### [place] [address] UA RBC None Seen Normal None Seen [facility] ([place] Comment on above: Performed By: #### A DIFF, GFR, MDW, CMP, ANEU, CBC, LIP #### [place] [address] UA Squam Epithelial 0-5 Abnormal None Seen [facility] ([place]) Comment on above: Performed By: #### A DIFF, GFR, MDW, CMP, ANEU, CBC, LIP #### [place] [id number] UA WBC 0-5 Abnormal None Seen [facility] ([place]) Comment on above: Performed By: #### A DIFF, GFR, MDW, CMP, ANEU, CBC, LIP #### [address] [address] A1Con 02-11-2023 HbA1c (Bld) [Mass fraction] 9.0 % High 4.3-6.4 [facility] ([place]) Comment on above: Performed By: #### A DIFF, GFR, MDW, CMP, ANEU, CBC, LIP #### [place] [address] CBCon 02-11-2023 Erythrocyte distribution width (RBC) [Ratio] 14.8 % High 11.5-14.5 [facility] ([place] Comment on above: Performed By: #### A DIFF, GFR, MDW, CMP, ANEU, CBC, LIP #### [place] [address] Hematocrit (Bld) [Volume fraction] 34.6 % Low 37.0-47.0 [facility] ([place] Comment on above: Performed By: #### A DIFF, GFR, MDW, CMP, ANEU, CBC, LIP #### [address] [address] Hgb 11.5 G/dL Low 12.0-16.0 [facility] ([place] Comment on above: Performed By: #### A DIFF, GFR, MDW, CMP, ANEU, CBC, LIP #### [address] [address] MCH (RBC) [Entitic mass] 26.6 pg Low 27.0-31.2 [facility] ([place] Comment on above: Performed By: #### A DIFF, GFR, MDW, CMP, ANEU, CBC, LIP #### [address] [address] MCHC 33.3 G/dL Normal 33.0-37.0 [facility] ([place] Comment on above: Performed By: #### A DIFF, GFR, MDW, CMP, ANEU, CBC, LIP #### [address] [address] MCV (RBC) [Entitic vol] 80.0 fL Normal 80.0-94.0 A [facility] ([place]) Comment on above: Performed By: #### A DIFF, GFR, MDW, CMP, ANEU, CBC, LIP #### [address] [address] Platelet 332 10 3/mcL Normal 130-400 [facility] ([place]) Comment on above: Performed By: #### A DIFF, GFR, MDW, CMP, ANEU, CBC, LIP #### [address] [address] Platelet mean volume (Bld) [Entitic vol] 7.5 fL Normal 7.4-10.4 [facility] ([place] Comment on above: Performed By: #### A DIFF, GFR, MDW, CMP, ANEU, CBC, LIP #### [address] [address] RBC 4.33 10 6/mcL Normal 4.20-5.40 [facility] ([place] Comment on above: Performed By: #### A DIFF, GFR, MDW, CMP, ANEU, CBC, LIP #### [address] [address] WBC 12.7 10 3/mcL High 4.6-10.8 [facility] ([place] Comment on above: Performed By: #### A DIFF, GFR, MDW, CMP, ANEU, CBC, LIP #### [address] [address] Erythrocyte distribution width (RBC) [Ratio] 14.9 % High 11.5-14.5 [facility] ([place]) Comment on above: Performed By: #### C MP, GFR, CBC, LIP, ADIFF, ANEU, MDW #### [address] [address] Hematocrit (Bld) [Volume fraction] 38.8 % Normal 37.0-47.0 [facility] ([place] Comment on above: Performed By: #### C MP, GFR, CBC, LIP, ADIFF, ANEU, MDW #### [address] [address] Hgb 12.7 G/dL Normal 12.0-16.0 [facility] ([place] Comment on above: Performed By: #### C MP, GFR, CBC, LIP, ADIFF, ANEU, MDW #### [address] [address] MCH (RBC) [Entitic mass] 26.6 pg Low 27.0-31.2 [facility] ([place] Comment on above: Performed By: #### C MP, GFR, CBC, LIP, ADIFF, ANEU, MDW #### [address] [address] MCHC 32.8 G/dL Low 33.0-37.0 [facility] ([place] Comment on above: Performed By: #### C MP, GFR, CBC, LIP, ADIFF, ANEU, MDW #### [address] [address] MCV (RBC) [Entitic vol] 81.2 fL Normal 80.0-94.0 A [facility] ([place]) Comment on above: Performed By: #### C MP, GFR, CBC, LIP, ADIFF, ANEU, MDW #### [address] [address] Platelet 385 10 3/mcL Normal 130-400 [facility] ([place] Comment on above: Performed By: #### C MP, GFR, CBC, LIP, ADIFF, ANEU, MDW #### [address] [address] Platelet mean volume (Bld) [Entitic vol] 7.6 fL Normal 7.4-10.4 [facility] ([place]) Comment on above: Performed By: #### C MP, GFR, CBC, LIP, ADIFF, ANEU, MDW #### [address] [address] RBC 4.78 10 6/mcL Normal 4.20-5.40 [facility] ([place]) Comment on above: Performed By: #### C MP, GFR, CBC, LIP, ADIFF, ANEU, MDW #### [address] [address] WBC 15.8 10 3/mcL High 4.6-10.8 [facility] ([place] Comment on above: Performed By: #### C MP, GFR, CBC, LIP, ADIFF, ANEU, MDW #### [address] [address] CMPon 02-11-2023 ALT [Catalytic activity/Vol] 15 U/L Normal 14-59 [facility] ([place]) Comment on above: Performed By: #### A DIFF, GFR, MDW, CMP, ANEU, CBC, LIP #### [address] [address] Albumin Level 3.0 G/dL Low 3.5-5.0 [facility] ([place]) Comment on above: Performed By: #### A DIFF, GFR, MDW, CMP, ANEU, CBC, LIP #### [address] [address] Albumin/Globulin [Mass ratio] 0.8 {ratio} Low 1.1-2.5 [facility] ([place]) Comment on above: Performed By: #### A DIFF, GFR, MDW, CMP, ANEU, CBC, LIP #### [address] [address] ALP [Catalytic activity/Vol] 78 U/L Normal 40-135 [facility] ([place]) Comment on above: Performed By: #### A DIFF, GFR, MDW, CMP, ANEU, CBC, LIP #### [address] [address] AST [Catalytic activity/Vol] 17 U/L Normal 10-40 [facility] ([place]) Comment on above: Performed By: #### A DIFF, GFR, MDW, CMP, ANEU, CBC, LIP #### [address] [address] Bili Total 0.6 mg/dL Normal 0.2-1.0 [facility] ([place]) Comment on above: Result Comment: Use of this assay is not recommended for patients undergoing treatment with eltrombopag due to the potential for falsely elevated results. Performed By: #### A DIFF, GFR, MDW, CMP, ANEU, CBC, LIP #### [address] [address] BUN/Creatinine Ratio 6 ratio Low 7-27 [facility] ([place]) Comment on above: Performed By: #### A DIFF, GFR, MDW, CMP, ANEU, CBC, LIP #### [address] [address] Calcium [Mass/Vol] 8.5 mg/dL Normal 8.4-10.2 [facility] ([place] Comment on above: Performed By: #### A DIFF, GFR, MDW, CMP, ANEU, CBC, LIP #### [address] [address] Chloride [Moles/Vol] 96 mmol/L Low 98-107 [facility] ([place]) Comment on above: Performed By: #### A DIFF, GFR, MDW, CMP, ANEU, CBC, LIP #### [address] [address] CO2 [Moles/Vol] 29 mmol/L Normal 22-29 [facility] ([place]) Comment on above: Performed By: #### A DIFF, GFR, MDW, CMP, ANEU, CBC, LIP #### [address] [address] Creatinine [Mass/Vol] 1.21 mg/dL High 0.55-1.02 [facility] ([place] Comment on above: Performed By: #### A DIFF, GFR, MDW, CMP, ANEU, CBC, LIP #### [address] [address] Electrolyte Balance 11.0 mEq/L Normal 4.0-15.0 [facility] ([place] Comment on above: Performed By: #### A DIFF, GFR, MDW, CMP, ANEU, CBC, LIP #### [address] [address] Globulin 3.7 G/dL Normal [facility] ([place]) Comment on above: Performed By: #### A DIFF, GFR, MDW, CMP, ANEU, CBC, LIP #### [address] [address] Glucose [Mass/Vol] 246 mg/dL High 70-105 [facility] ([place] Comment on above: Performed By: #### A DIFF, GFR, MDW, CMP, ANEU, CBC, LIP #### [address] [address] Potassium [Moles/Vol] 3.5 mmol/L Normal 3.5-5.1 [facility] ([place]) Comment on above: Performed By: #### A DIFF, GFR, MDW, CMP, ANEU, CBC, LIP #### [address] [address] Sodium [Moles/Vol] 136 mmol/L Normal 136-145 [facility] ([place] Comment on above: Performed By: #### A DIFF, GFR, MDW, CMP, ANEU, CBC, LIP #### [address] [address] Total Protein 6.7 G/dL Normal 6.4-8.2 [facility] ([place] Comment on above: Performed By: #### A DIFF, GFR, MDW, CMP, ANEU, CBC, LIP #### [address] [address] Urea nitrogen [Mass/Vol] 7 mg/dL Normal 7-18 [facility] ([place] Comment on above: Performed By: #### A DIFF, GFR, MDW, CMP, ANEU, CBC, LIP #### [address] [address] Albumin Level 3.7 G/dL Normal 3.5-5.0 [facility] ([place] Comment on above: Performed By: #### A DIFF, GFR, MDW, CMP, ANEU, CBC, LIP #### [address] [address] Albumin/Globulin [Mass ratio] 0.8 {ratio} Low 1.1-2.5 [facility] ([place] Comment on above: Performed By: #### A DIFF, GFR, MDW, CMP, ANEU, CBC, LIP #### [place] [address] [place], [place] [address] ALP [Catalytic activity/Vol] 88 U/L Normal 40-135 [facility] ([place]) Comment on above: Performed By: #### A DIFF, GFR, MDW, CMP, ANEU, CBC, LIP #### [address] [address] ALT [Catalytic activity/Vol] 16 U/L Normal 14-59 [facility] ([place] Comment on above: Performed By: #### A DIFF, GFR, MDW, CMP, ANEU, CBC, LIP #### [address] [address] AST [Catalytic activity/Vol] 10 U/L Normal 10-40 [facility] ([place] Comment on above: Performed By: #### A DIFF, GFR, MDW, CMP, ANEU, CBC, LIP #### [address] [address] Bili Total 0.9 mg/dL Normal 0.2-1.0 [facility] ([place]) Comment on above: Result Comment: Use of this assay is not recommended for patients undergoing treatment with eltrombopag due to the potential for falsely elevated results. Performed By: #### A DIFF, GFR, MDW, CMP, ANEU, CBC, LIP #### [address] [address] BUN/Creatinine Ratio 6 ratio Low 7-27 [facility] ([place] Comment on above: Performed By: #### A DIFF, GFR, MDW, CMP, ANEU, CBC, LIP #### [address] [address] Calcium [Mass/Vol] 9.4 mg/dL Normal 8.4-10.2 [facility] ([place] Comment on above: Performed By: #### A DIFF, GFR, MDW, CMP, ANEU, CBC, LIP #### [address] [address] Chloride [Moles/Vol] 90 mmol/L Low 98-107 [facility] ([place] Comment on above: Performed By: #### A DIFF, GFR, MDW, CMP, ANEU, CBC, LIP #### [address] [address] CO2 [Moles/Vol] 30 mmol/L High 22-29 [facility] ([place] Comment on above: Performed By: #### A DIFF, GFR, MDW, CMP, ANEU, CBC, LIP #### [address] [address] Creatinine [Mass/Vol] 1.45 mg/dL High 0.55-1.02 [facility] ([place] Comment on above: Performed By: #### A DIFF, GFR, MDW, CMP, ANEU, CBC, LIP #### [address] [address] Electrolyte Balance 7.0 mEq/L Normal 4.0-15.0 [facility] ([place] Comment on above: Performed By: #### A DIFF, GFR, MDW, CMP, ANEU, CBC, LIP #### [address] [address] Globulin 4.4 G/dL Normal [facility] ([place] Comment on above: Performed By: #### A DIFF, GFR, MDW, CMP, ANEU, CBC, LIP #### [address] [address] Glucose [Mass/Vol] 307 mg/dL High 70-105 [facility] ([place] Comment on above: Performed By: #### A DIFF, GFR, MDW, CMP, ANEU, CBC, LIP #### [address] [address] Potassium [Moles/Vol] 3.5 mmol/L Normal 3.5-5.1 [facility] ([place] Comment on above: Performed By: #### A DIFF, GFR, MDW, CMP, ANEU, CBC, LIP #### [place] [address] [place], [place] [address] Sodium [Moles/Vol] 127 mmol/L Low 136-145 [facility] ([place] Comment on above: Performed By: #### A DIFF, GFR, MDW, CMP, ANEU, CBC, LIP #### [place] [address] [place], [place] [address] Total Protein 8.1 G/dL Normal 6.4-8.2 [facility] ([place] Comment on above: Performed By: #### A DIFF, GFR, MDW, CMP, ANEU, CBC, LIP #### [place] [address] [place], [place] [address] Urea nitrogen [Mass/Vol] 8 mg/dL Normal 7-18 [facility] ([place] Comment on above: Performed By: #### A DIFF, GFR, MDW, CMP, ANEU, CBC, LIP #### [place] [address] [place], [place] [address] LABORATORYOrdered By: Harriet logan on 02-11-2023 Blood Glucose Testing Reason Routine (02/11/23 4:15 PM) [facility] Work Phone: Glucose [Mass/Vol] 203 mg/dL Invalid Interpretation Code 70 - 110 mg/dL [facility] Work Phone: Blood Glucose Testing Reason Routine (02/11/23 7:15 AM) [facility] Work Phone: Glucose [Mass/Vol] 237 mg/dL Invalid Interpretation Code 70 - 110 mg/dL [facility] Work Phone: LABORATORYOrdered By: Manjinder Boogie on 02-11-2023 Blood Glucose Testing Reason Routine (02/11/23 12:04 PM) [facility] Work Phone: Glucose [Mass/Vol] 220 mg/dL Invalid Interpretation Code 70 - 110 mg/dL [facility] Work Phone: LABORATORYOrdered By: SYSTEM SYSTEM on 02-11-2023 HbA1c (Bld) [Mass fraction] 9.0 % Invalid Interpretation Code 4.3 - 6.4 % AO ADM SS Albumin BCP dye [Mass/Vol] 3.0 G/dL Invalid Interpretation Code 3.5 - 5.0 G/dL AO ADM SS Albumin/Globulin [Mass ratio] 0.8 {ratio} Invalid Interpretation Code 1.1 - 2.5 ratio AO ADM SS ALP [Catalytic activity/Vol] 78 U/L Invalid Interpretation Code 40 - 135 U/L AO ADM SS ALT With P-5'-P [Catalytic activity/Vol] 15 U/L Invalid Interpretation Code 14 - 59 U/L AO Chemistry S AST With P-5'-P [Catalytic activity/Vol] 17 U/L Invalid Interpretation Code 10 - 40 U/L AO ADM SS Basophil, Absolute 0.1 103/mcL Invalid Interpretation Code 0.0 - 0.2 10^3/mcL AO Workflow SS Basophils/100 WBC (Bld) 0.5 % Invalid Interpretation Code 0.0 - 2.5 % AO Workflow SS Bilirubin [Mass/Vol] 0.6 mg/dL Invalid Interpretation Code 0.2 - 1.0 mg/dL AO ADM SS Comment on above: Interpretive Data: U se of this assay is not recommended for patients undergoing treatment with eltrombopag due to the potential for falsely elevated results. Calcium [Mass/Vol] 8.5 mg/dL Invalid Interpretation Code 8.4 - 10.2 mg/dL AO ADM SS Chloride [Moles/Vol] 96 mmol/L Invalid Interpretation Code 98 - 107 mmol/L AO ADM SS CO2 [Moles/Vol] 29 mmol/L Invalid Interpretation Code 22 - 29 mmol/L AO ADM SS Creatinine [Mass/Vol] 1.21 mg/dL Invalid Interpretation Code 0.55 - 1.02 mg/dL AO ADM SS Electrolyte Balance 11.0 mEq/L Invalid Interpretation Code 4.0 - 15.0 mEq/L AO ADM SS Eosinophil, Absolute 0.0 103/mcL Invalid Interpretation Code 0.0 - 0.4 10^3/mcL AO Workflow SS Eosinophils/100 WBC (Bld) 0.2 % Invalid Interpretation Code 0.0 - 7.0 % AO Workflow SS Erythrocyte distribution width (RBC) [Ratio] 14.8 % Invalid Interpretation Code 11.5 - 14.5 % AO Workflow SS GFR/1.73 sq M.predicted among blacks MDRD (S/P/Bld) [Vol rate/Area] 63 ml/min/1.73sqm Invalid Interpretation Code AO Chemistry S Comment on above: Interpretive Data: GFR Population mean for , Non- Americans Ages 20-29 = 116 mL/min/1.73 sq.m. Ages 30-39 = 107 mL/min/1.73 sq.m. Ages 40-49 = 99 mL/min/1.73 sq.m. Ages 50-59 = 93 mL/min/1.73 sq.m. Ages 60-69 = 85 mL/min/1.73 sq.m. Ages 70+ = 75 mL/min/1.73 sq.m. Chronic Kidney Disease: Less than 60 mL/min/1.73 square meters End Stage Renal Disease: Less than 15 mL/min/1.73 square meters GFR/1.73 sq M.predicted among non-blacks MDRD (S/P/Bld) [Vol rate/Area] 52 ml/min/1.73sqm Invalid Interpretation Code AO Chemistry S Comment on above: Interpretive Data: GFR Population mean for , Non- Americans Ages 20-29 = 116 mL/min/1.73 sq.m. Ages 30-39 = 107 mL/min/1.73 sq.m. Ages 40-49 = 99 mL/min/1.73 sq.m. Ages 50-59 = 93 mL/min/1.73 sq.m. Ages 60-69 = 85 mL/min/1.73 sq.m. Ages 70+ = 75 mL/min/1.73 sq.m. Chronic Kidney Disease: Less than 60 mL/min/1.73 square meters End Stage Renal Disease: Less than 15 mL/min/1.73 square meters Globulin 3.7 G/dL Invalid Interpretation Code AO ADM SS Glucose [Mass/Vol] 246 mg/dL Invalid Interpretation Code 70 - 105 mg/dL AO ADM SS Hematocrit (Bld) [Volume fraction] 34.6 % Invalid Interpretation Code 37.0 - 47.0 % AO Workflow SS Hemoglobin (Bld) [Mass/Vol] 11.5 G/dL Invalid Interpretation Code 12.0 - 16.0 G/dL AO Workflow SS Lactate [Moles/Vol] 1.7 mmol/L Invalid Interpretation Code 0.4 - 2.0 mmol/L AO ADM SS Lymphocyte, Absolute 4.2 103/mcL Invalid Interpretation Code 0.8 - 3.9 10^3/mcL AO Workflow SS Lymphocytes/100 WBC (Bld) 32.7 % Invalid Interpretation Code 10.0 - 50.0 % AO Workflow SS Magnesium [Mass/Vol] 2.1 mg/dL Invalid Interpretation Code 1.8 - 2.4 mg/dL AO ADM SS MCH (RBC) [Entitic mass] 26.6 pg Invalid Interpretation Code 27.0 - 31.2 pg AO Workflow SS MCHC 33.3 G/dL Invalid Interpretation Code 33.0 - 37.0 G/dL AO Workflow SS MCV (RBC) [Entitic vol] 80.0 fL Invalid Interpretation Code 80.0 - 94.0 fL AO Workflow SS Monocyte, Absolute 0.9 103/mcL Invalid Interpretation Code 0.2 - 1.0 10^3/mcL AO Workflow SS Monocytes/100 WBC (Bld) 7.0 % Invalid Interpretation Code 1.7 - 13.0 % AO Workflow SS Neutrophil, Absolute 7.6 103/mcL Invalid Interpretation Code 2.9 - 6.2 10^3/mcL AO Workflow SS Neutrophils/100 WBC (Bld) 59.6 % Invalid Interpretation Code 37.0 - 80.0 % AO Workflow SS Platelet mean volume (Bld) [Entitic vol] 7.5 fL Invalid Interpretation Code 7.4 - 10.4 fL AO Workflow SS Platelets (Bld) [#/Vol] 332 103/mcL Invalid Interpretation Code 130 - 400 10^3/mcL AO Workflow SS Potassium [Moles/Vol] 3.5 mmol/L Invalid Interpretation Code 3.5 - 5.1 mmol/L AO ADM SS Protein [Mass/Vol] 6.7 G/dL Invalid Interpretation Code 6.4 - 8.2 G/dL AO ADM SS RBC (Bld) [#/Vol] 4.33 106/mcL Invalid Interpretation Code 4.20 - 5.40 10^6/mcL AO Workflow SS Sodium [Moles/Vol] 136 mmol/L Invalid Interpretation Code 136 - 145 mmol/L AO ADM SS Urea nitrogen [Mass/Vol] 7 mg/dL Invalid Interpretation Code 7 - 18 mg/dL AO ADM SS Urea nitrogen/Creatinine [Mass ratio] 6 ratio Invalid Interpretation Code 7 - 27 ratio AO ADM SS WBC (Bld) [#/Vol] 12.7 103/mcL Invalid Interpretation Code 4.6 - 10.8 10^3/mcL AO Workflow SS LABORATORYOrdered By: Laura Hodge on 02-11-2023 Amphetamines Screen Ql (U) Negative (02/11/23 3:43 AM) Invalid Interpretation Code AO Manual Urine SS Barbiturates Screen Ql (U) Negative (02/11/23 3:43 AM) Invalid Interpretation Code AO Manual Urine SS Benzodiazepines Ql (U) Negative (02/11/23 3:43 AM) Invalid Interpretation Code AO Manual Urine SS Benzoylecgonine Screen Ql (U) Negative (02/11/23 3:43 AM) Invalid Interpretation Code AO Manual Urine SS Cannabinoids tested Screen Nom (U) Positive (02/11/23 3:43 AM) Invalid Interpretation Code AO Manual Urine SS Methadone Screen Ql (U) Negative (02/11/23 3:43 AM) Invalid Interpretation Code AO Manual Urine SS Opiates Screen Ql (U) Positive (02/11/23 3:43 AM) Invalid Interpretation Code AO Manual Urine SS Phencyclidine Ql (U) Negative (02/11/23 3:43 AM) Invalid Interpretation Code AO Manual Urine SS Tricyclic antidepressants Screen Ql (U) Negative (02/11/23 3:43 AM) Invalid Interpretation Code AO Manual Urine SS LABORATORYOrdered By: Mary Toney on 02-11-2023 Appearance (U) Clear (02/11/23 3:43 AM) Invalid Interpretation Code Clear AO Auto Urine SS Bilirubin Ql (U) Negative (02/11/23 3:43 AM) Invalid Interpretation Code Negative AO Auto Urine SS Color (U) Yellow (02/11/23 3:43 AM) Invalid Interpretation Code AO Auto Urine SS Glucose Test strip (U) [Mass/Vol] 100 mg/dL Invalid Interpretation Code Negative AO Auto Urine SS Hemoglobin Auto test strip (U) [Mass/Vol] Trace *ABN* (02/11/23 3:43 AM) Invalid Interpretation Code Negative AO Auto Urine SS Ketones Ql (U) Negative Invalid Interpretation Code Negative AO Auto Urine SS UA Leuk Est Negative (02/11/23 3:43 AM) Invalid Interpretation Code Negative AO Auto Urine SS UA Nitrite Negative (02/11/23 3:43 AM) Invalid Interpretation Code Negative AO Auto Urine SS UA pH 7.0 (02/11/23 3:43 AM) Invalid Interpretation Code 5.0 - 8.0 AO Auto Urine SS UA Protein Negative Invalid Interpretation Code Negative AO Auto Urine SS UA Spec Grav 1.015 (02/11/23 3:43 AM) Invalid Interpretation Code 1.015-1.025 AO Auto Urine SS UA Specimen Type Void (02/11/23 3:43 AM) Invalid Interpretation Code AO Auto Urine SS UA Urobilinogen 0.2 E.U./dL Invalid Interpretation Code 0.2-1.0 AO Auto Urine SS LACon 02-11-2023 Lactic Acid Lvl 1.7 mmol/L Normal 0.4-2.0 [facility] ([place]) Comment on above: Performed By: #### A DIFF, GFR, MDW, CMP, ANEU, CBC, LIP #### [address] [address] LIPon 02-11-2023 Lipase Level 39 U/L Normal 16-77 [facility] ([place]) Comment on above: Performed By: #### A DIFF, GFR, MDW, CMP, ANEU, CBC, LIP #### [address] [address] MGon 02-11-2023 Magnesium [Mass/Vol] 2.1 mg/dL Normal 1.8-2.4 [facility]) Comment on above: Performed By: #### A DIFF, GFR, MDW, CMP, ANEU, CBC, LIP #### [address] [address] NM GASTRIC EMPTYING STUDYon 02-11-2023 NM GASTRIC EMPTYING STUDY ORIGINAL EXAMINATION: GASTRIC EMPTYING STUDY02/11/2023 2:37 pm TECHNIQUE: The patient received an oral radiolabeled solid-phase meal utilizing 2.0 mCi of Tc-99m sulfur colloid in cooked egg. Sequential anterior and posterior images of the abdomen were then acquired over the next 3 hours. Computer quantification of gastric emptying (using geometric mean activity) was performed. COMPARISON: 02/11/2023. 01/10/2023. HISTORY: ORDERING SYSTEM PROVIDED HISTORY: Reason for Exam: persistant N/V, DM FINDINGS: Sequential static images demonstrates radiotracer within the gastric lumen, progressively emptying into small bowel. Computer quantification demonstrates gastric retention as follows: 57 % at 0.5 hr (normal min 70%) 49 % at 1 hr (normal 30%-90%) 11 % at 2 hr (normal max 60%) 2 % at 3 hr (normal max 30%) IMPRESSION: Initially rapid gastric emptying, but remainder of the examination is normal without evidence of gastroparesis. I have personally reviewed the images of this examination and agree with the resident's findings and interpretation. Interpreted by: Rose Mary Preciado Preliminary Report By: Say Zelaya Electronically signed By Rose Mary Preciado Dictated Date: 02/11/2023 2:45:02 PM Prelim Date: 02/11/2023 3:41:00 PM Sign Date: 02/11/2023 3:41:00 PM Ordering Provider: MARTI WEBB [facility] ([place]) No Panel Informationon 02-11 Microscopic examination of blood, culture Culture has been received in lab and is no growth to date. Routine cultures are held for 5 days. [facility] Work Phone: PREGUon 02-11-2023 HCG ( test) Ql (U) Negative Normal [facility] ([place]) Comment on above: Performed By: #### A DIFF, GFR, MDW, CMP, ANEU, CBC, LIP #### [address] [address] test (u) int Not detected Invalid Interpretation Code [facility] ([place]) Comment on above: Performed By: #### A DIFF, GFR, MDW, CMP, ANEU, CBC, LIP #### [address] [address] TOXSCon 02-11-2023 U Ampheta (AO) Negative Normal [facility] ([place]) Comment on above: Performed By: #### A DIFF, GFR, MDW, CMP, ANEU, CBC, LIP #### [place] [id number] [place], [place] [address] U Marifer (AO) Negative Normal [facility] ([place] Comment on above: Performed By: #### A DIFF, GFR, MDW, CMP, ANEU, CBC, LIP #### [address] [address] U Ayan (AO) Negative [facility] ([place]) Comment on above: Performed By: #### A DIFF, GFR, MDW, CMP, ANEU, CBC, LIP #### [address] [address] U Cannab (AO) Positive [facility] ([place] Comment on above: Performed By: #### A DIFF, GFR, MDW, CMP, ANEU, CBC, LIP #### [address] [address] U Cocaine (AO) Negative [facility] ([place] Comment on above: Performed By: #### A DIFF, GFR, MDW, CMP, ANEU, CBC, LIP #### [address] [address] U Methadone (AO) Negative [facility] ([place] Comment on above: Performed By: #### A DIFF, GFR, MDW, CMP, ANEU, CBC, LIP #### [address] [address] U PCP (AO) Negative [facility] ([place] Comment on above: Performed By: #### A DIFF, GFR, MDW, CMP, ANEU, CBC, LIP #### [address] [address] U TCA (AO) Negative [facility] ([place] Comment on above: Performed By: #### A DIFF, GFR, MDW, CMP, ANEU, CBC, LIP #### [address] [address] Urine Opiates (AO) Positive [facility] ([place]) Comment on above: Performed By: #### A DIFF, GFR, MDW, CMP, ANEU, CBC, LIP #### [address] [address] UAon 02-11-2023 Color (U) Yellow [facility] ([place] Comment on above: Performed By: #### A DIFF, GFR, MDW, CMP, ANEU, CBC, LIP #### [address] [address] Glucose (U) [Mass/Vol] 100 mg/dL Abnormal Negative [facility] ([place]) Comment on above: Performed By: #### A DIFF, GFR, MDW, CMP, ANEU, CBC, LIP #### [address] [address] Ketones Ql (U) Negative Normal Negative [facility] ([place] Comment on above: Performed By: #### A DIFF, GFR, MDW, CMP, ANEU, CBC, LIP #### [address] [address] UA Appear Clear Normal Clear [facility] ([place] Comment on above: Performed By: #### A DIFF, GFR, MDW, CMP, ANEU, CBC, LIP #### [address] [address] UA Blood Trace Abnormal Negative [facility] ([place] Comment on above: Performed By: #### A DIFF, GFR, MDW, CMP, ANEU, CBC, LIP #### [address] [address] UA Leuk Est Negative Normal Negative [facility] ([place] Comment on above: Performed By: #### A DIFF, GFR, MDW, CMP, ANEU, CBC, LIP #### [address] [address] UA Nitrite Negative Normal Negative [facility] ([place] Comment on above: Performed By: #### A DIFF, GFR, MDW, CMP, ANEU, CBC, LIP #### [address] [address] UA pH 7.0 Normal 5.0 - 8.0 [facility] ([place] Comment on above: Performed By: #### A DIFF, GFR, MDW, CMP, ANEU, CBC, LIP #### [address] [address] UA Protein Negative Normal Negative [facility] ([place] Comment on above: Performed By: #### A DIFF, GFR, MDW, CMP, ANEU, CBC, LIP #### [address] [address] UA Spec Grav 1.015 Normal 1.015-1.025 [facility] ([place]) Comment on above: Performed By: #### A DIFF, GFR, MDW, CMP, ANEU, CBC, LIP #### [place] [address] UA Specimen Type Void Normal [facility] ([place] Comment on above: Performed By: #### A DIFF, GFR, MDW, CMP, ANEU, CBC, LIP #### [place] [address] UA Urobilinogen 0.2 E.U./dL Normal 0.2-1.0 [facility] ([place]) Comment on above: Performed By: #### A DIFF, GFR, MDW, CMP, ANEU, CBC, LIP #### [place] [address] Urobilinogen (U) [Mass/Vol] Negative Normal Negative [facility] ([place] Comment on above: Performed By: #### A DIFF, GFR, MDW, CMP, ANEU, CBC, LIP #### [address] [address] Color (U) Yellow Normal [facility] ([place] Comment on above: Performed By: #### A DIFF, GFR, MDW, CMP, ANEU, CBC, LIP #### [address] [address] Glucose (U) [Mass/Vol] 100 mg/dL Abnormal Negative [facility] ([place]) Comment on above: Performed By: #### A DIFF, GFR, MDW, CMP, ANEU, CBC, LIP #### [place] [address] Ketones Ql (U) 15 mg/dL Abnormal Negative [facility] ([place] Comment on above: Performed By: #### A DIFF, GFR, MDW, CMP, ANEU, CBC, LIP #### [address] [address] UA Appear Clear Normal Clear [facility] ([place] Comment on above: Performed By: #### A DIFF, GFR, MDW, CMP, ANEU, CBC, LIP #### [address] [address] UA Blood Trace Abnormal Negative [facility] ([place] Comment on above: Performed By: #### A DIFF, GFR, MDW, CMP, ANEU, CBC, LIP #### [address] [address] UA Leuk Est Trace Abnormal Negative [facility] ([place] Comment on above: Performed By: #### A DIFF, GFR, MDW, CMP, ANEU, CBC, LIP #### [address] [address] UA Nitrite Negative Normal Negative [facility] ([place] Comment on above: Performed By: #### A DIFF, GFR, MDW, CMP, ANEU, CBC, LIP #### [address] [address] UA pH 5.5 Normal 5.0 - 8.0 [facility] ([place] Comment on above: Performed By: #### A DIFF, GFR, MDW, CMP, ANEU, CBC, LIP #### [address] [address] UA Protein Negative Normal Negative [facility] ([place] Comment on above: Performed By: #### A DIFF, GFR, MDW, CMP, ANEU, CBC, LIP #### [address] [address] UA Spec Grav <=1.005 Abnormal 1.015-1.025 [facility] ([place] Comment on above: Performed By: #### A DIFF, GFR, MDW, CMP, ANEU, CBC, LIP #### [address] [address] UA Specimen Type Clean Catch Normal [facility] ([place] Comment on above: Performed By: #### A DIFF, GFR, MDW, CMP, ANEU, CBC, LIP #### [facility] [address] [place], [place] [address] UA Urobilinogen 0.2 E.U./dL Normal 0.2-1.0 [facility] ([place] Comment on above: Performed By: #### A DIFF, GFR, MDW, CMP, ANEU, CBC, LIP #### [facility] [address] [place], [place] [address] Urobilinogen (U) [Mass/Vol] Negative Normal Negative [facility] ([place]) Comment on above: Performed By: #### A DIFF, GFR, MDW, CMP, ANEU, CBC, LIP #### [facility] [address] [place], [place] [address] US ABDOMEN COMPLETEon 2022 US ABDOMEN COMPLETE ORIGINAL EXAMINATION: COMPLETE ABDOMINAL ULTRASOUND 02/11/2023 8:58 am COMPARISON: CT abdomen pelvis dated January 10, 2023. HISTORY: ORDERING SYSTEM PROVIDED HISTORY: Reason for Exam: Abd pain, hydrosalpinx, mild CBD dilation FINDINGS: LIVER: The liver measures 16.4 cm in craniocaudal span, demonstrates diffusely increased hepatic echogenicity but periportal and diaphragmatic echogenicity is still appreciable without evidence of intrahepatic biliary ductal dilatation. No obvious focal lesions seen BILIARY SYSTEM: Gallbladder is unremarkable without evidence of pericholecystic fluid, wall thickening or stones. Negative sonographic Morris's sign. Common bile duct is within normal limits measuring 2.1 mm. KIDNEYS: The kidneys are unremarkable in appearance without evidence of hydronephrosis. PANCREAS: Visualized portions of the pancreas are unremarkable. SPLEEN: The spleen is unremarkable in appearance. Spleen is within normal limits in size. IVC: The visualized IVC is patent. AORTA: Visualized aorta is patent without aneurysm. OTHER: No evidence of ascites. IMPRESSION: Fatty liver or other diffuse hepatocellular disease. No acute findings. I have personally reviewed the images of this examination and agree with the resident's findings and interpretation. Interpreted by: Kermit Morris MD Preliminary Report By: Tigre Espinal Electronically signed By Kermit Morris MD Dictated Date: 02/11/2023 9:15:59 AM Prelim Date: 02/11/2023 1:29:01 PM Sign Date: 02/11/2023 1:29:01 PM Ordering Provider: MARTI Maldonado [facility] ([place]) US PELVIS NON-OB W/TRANSVAGI NALon 02-11-2023 US PELVIS NON-OB W/TRANSVAGINAL ORIGINAL EXAMINATION: TRANSVAGINAL PELVIC ULTRASOUND02/11/2023 11:49 am Ultrasound Pelvis: Transabdominal and transvaginal study COMPARISON: CT 01/10/2023 HISTORY: ORDERING SYSTEM PROVIDED HISTORY: Reason for Exam: ABd pain, hydrosalpinx, left lower quadrant pain FINDINGS: The uterus is 6.6 x 3.1 x 3.8 cms. There is mild nonspecific heterogeneity of the myometrium. No myometrial mass lesion is seen. The endometrial double wall thickness is 4.1 mm. Right ovary: Only seen transabdominally 3.3 x 2.1 x 1.9 cm.. Left ovary: Less than optimally visualized due to bowel gas artifacts in the pelvis and adnexa. It is 2.3 x 1.7 x 2.0 cm. No suspicious ovarian lesion is seen.. There is a tubular structure of 5-6 mm diameter in the left adnexal region without blood flow corresponding to the hydrosalpinx seen on CT. This is less than optimally visualized due to bowel gas artifacts, better seen transabdominally.. No concerning ovarian cyst or mass is seen. There is blood flow to both ovaries. No other pelvic or adnexal masses or significant free fluid is seen. IMPRESSION: Normal uterus and ovaries. There is again demonstration of a left-sided hydrosalpinx although this was better seen on CT due to bowel gas artifacts on the ultrasound. Interpreted by: Kermit Morris MD Preliminary Report By: Kerimt Morris MD Electronically signed By Kermit Morris MD Dictated Date: 02/11/2023 12:07:34 PM Prelim Date: 02/11/2023 12:11:13 PM Sign Date: 02/11/2023 12:11:13 PM Ordering Provider: MARTI WEBB [facility] ([place]) XR ABDOMEN APon 02-11-2023 XR ABDOMEN AP ORIGINAL EXAMINATION: ONE SUPINE XRAY VIEW(S) OF THE ABDOMEN02/11/2023 9:05 am COMPARISON: None HISTORY: ORDERING SYSTEM PROVIDED HISTORY: Reason for Exam: abd pain, constipation FINDINGS: Bowel gas pattern is nonobstructive and unremarkable. No dilated small bowel loops. No significant fecal loading of the colon. No visible calculi. No supine evidence of free air. The included lung bases are clear. No acute skeletal abnormality. IMPRESSION: Negative abdominal radiograph. Interpreted by: Kermit Morris MD Preliminary Report By: Kermit Morris MD Electronically signed By Kermit Morris MD Dictated Date: 02/11/2023 9:28:23 AM Prelim Date: 02/11/2023 9:28:54 AM Sign Date: 02/11/2023 9:28:54 AM Ordering Provider: MARTI WEBB [facility] ([place]) LABORATORYOrdered By: SYSTEM SYSTEM on 02-10-2023 Albumin BCP dye [Mass/Vol] 3.7 G/dL Invalid Interpretation Code 3.5 - 5.0 G/dL AO ADM SS Albumin/Globulin [Mass ratio] 0.8 {ratio} Invalid Interpretation Code 1.1 - 2.5 ratio AO ADM SS ALP [Catalytic activity/Vol] 88 U/L Invalid Interpretation Code 40 - 135 U/L AO ADM SS ALT With P-5'-P [Catalytic activity/Vol] 16 U/L Invalid Interpretation Code 14 - 59 U/L AO ADM SS AST With P-5'-P [Catalytic activity/Vol] 10 U/L Invalid Interpretation Code 10 - 40 U/L AO ADM SS Basophil, Absolute 0.1 103/mcL Invalid Interpretation Code 0.0 - 0.2 10^3/mcL AO Workflow SS Basophils/100 WBC (Bld) 0.6 % Invalid Interpretation Code 0.0 - 2.5 % AO Workflow SS Bilirubin [Mass/Vol] 0.9 mg/dL Invalid Interpretation Code 0.2 - 1.0 mg/dL AO ADM SS Comment on above: Interpretive Data: U se of this assay is not recommended for patients undergoing treatment with eltrombopag due to the potential for falsely elevated results. Calcium [Mass/Vol] 9.4 mg/dL Invalid Interpretation Code 8.4 - 10.2 mg/dL AO ADM SS Chloride [Moles/Vol] 90 mmol/L Invalid Interpretation Code 98 - 107 mmol/L AO ADM SS CO2 [Moles/Vol] 30 mmol/L Invalid Interpretation Code 22 - 29 mmol/L AO ADM SS Creatinine [Mass/Vol] 1.45 mg/dL Invalid Interpretation Code 0.55 - 1.02 mg/dL AO ADM SS Electrolyte Balance 7.0 mEq/L Invalid Interpretation Code 4.0 - 15.0 mEq/L AO ADM SS Eosinophil, Absolute 0.0 103/mcL Invalid Interpretation Code 0.0 - 0.4 10^3/mcL AO Workflow SS Eosinophils/100 WBC (Bld) 0.1 % Invalid Interpretation Code 0.0 - 7.0 % AO Workflow SS Erythrocyte distribution width (RBC) [Ratio] 14.9 % Invalid Interpretation Code 11.5 - 14.5 % AO Workflow SS GFR/1.73 sq M.predicted among blacks MDRD (S/P/Bld) [Vol rate/Area] 51 ml/min/1.73sqm Invalid Interpretation Code AO Chemistry S Comment on above: Interpretive Data: GFR Population mean for , Non- Americans Ages 20-29 = 116 mL/min/1.73 sq.m. Ages 30-39 = 107 mL/min/1.73 sq.m. Ages 40-49 = 99 mL/min/1.73 sq.m. Ages 50-59 = 93 mL/min/1.73 sq.m. Ages 60-69 = 85 mL/min/1.73 sq.m. Ages 70+ = 75 mL/min/1.73 sq.m. Chronic Kidney Disease: Less than 60 mL/min/1.73 square meters End Stage Renal Disease: Less than 15 mL/min/1.73 square meters GFR/1.73 sq M.predicted among non-blacks MDRD (S/P/Bld) [Vol rate/Area] 42 ml/min/1.73sqm Invalid Interpretation Code AO Chemistry S Comment on above: Interpretive Data: GFR Population mean for , Non- Americans Ages 20-29 = 116 mL/min/1.73 sq.m. Ages 30-39 = 107 mL/min/1.73 sq.m. Ages 40-49 = 99 mL/min/1.73 sq.m. Ages 50-59 = 93 mL/min/1.73 sq.m. Ages 60-69 = 85 mL/min/1.73 sq.m. Ages 70+ = 75 mL/min/1.73 sq.m. Chronic Kidney Disease: Less than 60 mL/min/1.73 square meters End Stage Renal Disease: Less than 15 mL/min/1.73 square meters Globulin 4.4 G/dL Invalid Interpretation Code AO ADM SS Glucose [Mass/Vol] 307 mg/dL Invalid Interpretation Code 70 - 105 mg/dL AO ADM SS Hematocrit (Bld) [Volume fraction] 38.8 % Invalid Interpretation Code 37.0 - 47.0 % AO Workflow SS Hemoglobin (Bld) [Mass/Vol] 12.7 G/dL Invalid Interpretation Code 12.0 - 16.0 G/dL AO Workflow SS Lipase [Catalytic activity/Vol] 39 U/L Invalid Interpretation Code 16 - 77 U/L AO ADM SS Lymphocyte, Absolute 4.2 103/mcL Invalid Interpretation Code 0.8 - 3.9 10^3/mcL AO Workflow SS Lymphocytes/100 WBC (Bld) 26.5 % Invalid Interpretation Code 10.0 - 50.0 % AO Workflow SS MCH (RBC) [Entitic mass] 26.6 pg Invalid Interpretation Code 27.0 - 31.2 pg AO Workflow SS MCHC 32.8 G/dL Invalid Interpretation Code 33.0 - 37.0 G/dL AO Workflow SS MCV (RBC) [Entitic vol] 81.2 fL Invalid Interpretation Code 80.0 - 94.0 fL AO Workflow SS Monocyte distribution width Auto (Bld) [Entitic vol] 19.69 1 Invalid Interpretation Code 0.00 - 20.00 AO Workflow SS Comment on above: Result Comment: For ED adult patients suspected of sepsis, MDW<=20.0 does not rule out sepsis or risk of sepsis Monocyte, Absolute 1.0 103/mcL Invalid Interpretation Code 0.2 - 1.0 10^3/mcL AO Workflow SS Monocytes/100 WBC (Bld) 6.1 % Invalid Interpretation Code 1.7 - 13.0 % AO Workflow SS Neutrophil, Absolute 10.5 103/mcL Invalid Interpretation Code 2.9 - 6.2 10^3/mcL AO Workflow SS Neutrophils/100 WBC (Bld) 66.7 % Invalid Interpretation Code 37.0 - 80.0 % AO Workflow SS Platelet mean volume (Bld) [Entitic vol] 7.6 fL Invalid Interpretation Code 7.4 - 10.4 fL AO Workflow SS Platelets (Bld) [#/Vol] 385 103/mcL Invalid Interpretation Code 130 - 400 10^3/mcL AO Workflow SS Potassium [Moles/Vol] 3.5 mmol/L Invalid Interpretation Code 3.5 - 5.1 mmol/L AO ADM SS Protein [Mass/Vol] 8.1 G/dL Invalid Interpretation Code 6.4 - 8.2 G/dL AO ADM SS RBC (Bld) [#/Vol] 4.78 106/mcL Invalid Interpretation Code 4.20 - 5.40 10^6/mcL AO Workflow SS Sodium [Moles/Vol] 127 mmol/L Invalid Interpretation Code 136 - 145 mmol/L AO ADM SS Urea nitrogen [Mass/Vol] 8 mg/dL Invalid Interpretation Code 7 - 18 mg/dL AO ADM SS Urea nitrogen/Creatinine [Mass ratio] 6 ratio Invalid Interpretation Code 7 - 27 ratio AO ADM SS WBC (Bld) [#/Vol] 15.8 103/mcL Invalid Interpretation Code 4.6 - 10.8 10^3/mcL AO Workflow SS LABORATORYOrdered By: Mary Toney on 02-10-2023 Appearance (U) Clear (02/10/23 11:45 PM) Invalid Interpretation Code Clear AO Auto Urine SS Bacteria LM.HPF (Urine sed) [#/Area] Trace /HPF Invalid Interpretation Code AO Auto Urine SS Bilirubin Ql (U) Negative (02/10/23 11:45 PM) Invalid Interpretation Code Negative AO Auto Urine SS Color (U) Yellow (02/10/23 11:45 PM) Invalid Interpretation Code AO Auto Urine SS Glucose Test strip (U) [Mass/Vol] 100 mg/dL Invalid Interpretation Code Negative AO Auto Urine SS HCG ( test) Ql Negative (02/10/23 11:45 PM) Invalid Interpretation Code AO Manual Urine SS Hemoglobin Auto test strip (U) [Mass/Vol] Trace *ABN* (02/10/23 11:45 PM) Invalid Interpretation Code Negative AO Auto Urine SS Ketones Ql (U) 15 mg/dL Invalid Interpretation Code Negative AO Auto Urine SS test (u) int Not detected Invalid Interpretation Code AO Manual Urine SS UA Leuk Est Trace *ABN* (02/10/23 11:45 PM) Invalid Interpretation Code Negative AO Auto Urine SS UA Nitrite Negative (02/10/23 11:45 PM) Invalid Interpretation Code Negative AO Auto Urine SS UA pH 5.5 (02/10/23 11:45 PM) Invalid Interpretation Code 5.0 - 8.0 AO Auto Urine SS UA Protein Negative Invalid Interpretation Code Negative AO Auto Urine SS UA RBC None Seen /HPF Invalid Interpretation Code None Seen AO Auto Urine SS UA Spec Grav <=1.005 *ABN* (02/10/23 11:45 PM) Invalid Interpretation Code 1.015-1.025 AO Auto Urine SS UA Specimen Type Clean Catch (02/10/23 11:45 PM) Invalid Interpretation Code AO Auto Urine SS UA Squam Epithelial 0-5 /HPF Invalid Interpretation Code None Seen AO Auto Urine SS UA Urobilinogen 0.2 E.U./dL Invalid Interpretation Code 0.2-1.0 AO Auto Urine SS WBC LM.HPF (Urine sed) [#/Area] 0-5 /HPF Invalid Interpretation Code None Seen AO Auto Urine SS Absolute lymphocyte countOrd ered By: Javy Doss on 02-08-2023 Lymphocytes Auto (Unsp spec) [#/Vol] 1.67 10*3/uL 0.83-4.51 [facility] Amorphous sediment detection in urine sediment by light microscopyOrdered By: Javy Doss on 02-08-2023 Amorphous sediment LM Ql (Urine sed) 3+ PHOS [facility] Basophil percentageOrdered B y: Javy Doss on 02-08-2023 Basophil percentage 0-5 SEEN /hpf 0-[address] [facility] Basophil percentage 325 mg/dL 74-106 [facility] Basophil percentage 9.2 g/dL 6.4-8.2 [facility] Basophil percentage 0.70 mg/dL 0.20-1.00 [facility] Basophil percentage 134 mmol/L 136-145 [facility] Basophil percentage 3.7 mmol/L 3.5-5.1 [facility] Basophil percentage 96 mmol/L 98-107 [facility] Basophils (Bld) [#/Vol] 9.1 10*3/uL 4.4-11.0 [facility] Basophils (Bld) [#/Vol] 7.0 10*3/uL 2.0-7.7 [facility] Basophils/100 WBC (Bld) 0.2 % 0-1 [facility] Basophils/100 WBC (Bld) 77.0 % 47-70 [facility] Basophils/100 WBC (Bld) 0.0 % 0-5 [facility] Bilirubin [Mass/Vol] 0.70 mg/dL 0.20-1.00 [facility] Comment on above: For patients on eltr ombopag therapy, use of [facility] TBIL is not recommended. Chloride [Moles/Vol] 96 mmol/L 98-107 [facility] Eosinophils/100 WBC (Bld) 0.0 % 0-5 [facility] Glucose [Mass/Vol] 325 mg/dL 74-106 [facility] Comment on above: Glucose result great er than or equal to 200 mg/dLsuggests DIABETES MELLITUS per A.D.A. criteria. Neutrophils (Bld) [#/Vol] 7.0 10*3/uL 2.0-7.7 [facility] Neutrophils/100 WBC (Bld) 77.0 % 47-70 [facility] Potassium [Moles/Vol] 3.7 mmol/L 3.5-5.1 [facility] Protein [Mass/Vol] 9.2 g/dL 6.4-8.2 [facility] Sodium [Moles/Vol] 134 mmol/L 136-145 [facility] WBC (Bld) [#/Vol] 9.1 10*3/uL 4.4-11.0 [facility] Beta hCG serum qualOrdered B y: Javy Doss on 02-08-2023 Beta HCG ( test) Ql Negative [facility] Bilirubin Test strip Ql (U)O rdered By: Javy Doss on 02-08-2023 Bilirubin Ql (U) Negative Negative [facility] Blood erythrocytes count (nu mber/volume)Ordered By: Javy Doss on 02-08-2023 RBC (Bld) [#/Vol] 5.27 10*6/uL 4.2-5.4 [facility] Blood hemoglobin measurement (mass/volume)Ordered By: Javy Doss on 02-08-2023 Hemoglobin (Bld) [Mass/Vol] 13.9 g/dL 12.0-15.0 [facility] Blood lymphocytes/100 leukoc ytesOrdered By: Javy Doss on 02-08-2023 Lymphocytes/100 WBC (Bld) 18.4 % 19-41 [facility] Blood monocytes/100 leukocyt esOrdered By: Javy Doss on 02-08-2023 Monocytes/100 WBC (Bld) 3.6 % 0-10 [facility] Blood platelet mean volumeOr dered By: Javy Doss on 02-08-2023 Platelet mean volume (Bld) [Entitic vol] 9.3 fL 6.2-12.0 [facility] Determination of erythrocyte mean corpuscular volume (MCV)Ordered By: Javy Doss on 02-08-2023 MCV (RBC) [Entitic vol] 81.2 fL 81-99 [facility] Hematocrit Auto (Bld) [Volum e fraction]Ordered By: Javy Doss on 02-08-2023 Hematocrit (Bld) [Volume fraction] 42.8 % 37-47 [facility] Ketones Test strip Ql (U)Ord ered By: [facility] Doss on 02-08-2023 Ketones Ql (U) 50 mg/dl Negative [facility] Laboratory - Chemistry and C hemistry - challengeOrdered By: [facility]-08[facility]2023 ALP [Catalytic activity/Vol] 105 U/L 45-117 [facility] ALT [Catalytic activity/Vol] 24 U/L 13-56 [facility] CO2 [Moles/Vol] 30.0 mmol/L 21.0-32.0 [facility] Globulin (S) [Mass/Vol] 5.4 g/dL 2.2-4.2 [facility] Lipase [Catalytic activity/Vol] 38 U/L 13-75 [facility] Comment on above: Please note:LIPASE r evised reference range effective 22. New Lipase methodology. Expected to produce lower values than the previous assay method. NEW Reference Range: 13 - 75 U/L Urea nitrogen/Creatinine [Mass ratio] 7.4 mg/mg 10-20 [facility] Laboratory - Hematology and Cell countsOrdered By: Schertz Romario on 02-08-2023 Erythrocyte distribution width (RBC) [Entitic vol] 39.1 fL 35.1-43.9 [facility] Erythrocyte distribution width (RBC) [Ratio] 13.3 % 11.6-14.6 [facility] Immature granulocytes/100 WBC (Bld) 0.800 % 0.0-0.9 [facility] Comment on above: IG% - Immature Granu locytes (promyelocytes, myelocytes and metamyelocytes) > 1% indicates that a LEFT SHIFT is Present. MCH (RBC) [Entitic mass] 26.4 pg 27.0-32.0 [facility] Nucleated RBC/100 WBC (Bld) [Ratio] 0 % 0-5 [facility] MCHC Auto (RBC) [Mass/Vol]Or dered By: Javy Doss on 02-08-2023 MCHC (RBC) [Mass/Vol] 32.5 g/dL 32-36 [facility] Mucus LM Ql (Urine sed)Order ed By: Javy Doss on 02-08-2023 Mucus Ql (Urine sed) 0 SEEN /hpf [facility] Nitrite Test strip Ql (U)Ord ered By: Javy Doss on 02-08-2023 Nitrite Ql (U) Negative Negative [facility] No Panel InformationOrdered By: Javy Doss on 02-08-2023 Estimated Creatinine Clearance Calc 62.55 ml/min [facility] Estimated GFR (MDRD) Amer 66 mL/min >60 [facility] Comment on above: GFR Calc Estimated GFR (MDRD) Non-Af Amer 55 mL/min >60 [facility] Comment on above: Non- GFR Calc 26.4 pg 27.0-32.0 [facility] 13.3 % 11.6-14.6 [facility] 39.1 fl 35.1-43.9 [facility] 0.800 % 0.0-0.9 [facility] 0 % 0-5 [facility] 55 mL/min >60 [facility] 66 mL/min >60 [facility] 62.55 ml/min [facility] 7.4 RATIO 10-20 [facility] 5.4 g/dL 2.2-4.2 [facility] 38 U/L 13-75 [facility] 105 U/L 45-117 [facility] 24 U/L 13-56 [facility] 30.0 mmol/L 21.0-32.0 [facility] Platelets bldOrdered By: Haylee Doss on 02-08-2023 Platelets (Bld) [#/Vol] 394 10*3/uL 150-450 [facility] Protein Test strip Ql (U)Ord ered By: Remus Doss on 02-08-2023 Protein Ql (U) 30 mg/dl Negative [facility] Serum or plasma albumin hussein urement (mass/volume)Ordered By: Remus Doss on 02-08-2023 Albumin [Mass/Vol] 3.8 g/dL 3.2-5.0 [facility] Serum or plasma albumin/glob ulin mass ratioOrdered By: Rem Ungmeño on 02-08-2023 Albumin/Globulin [Mass ratio] 0.7 {ratio} 0.9-2.4 [facility] Serum or plasma calcium hussein urement (mass/volume)Ordered By: Rem Ungmeño on 02-08-2023 Calcium [Mass/Vol] 9.7 mg/dL 8.5-10.1 [facility] Serum or plasma creatinine m easurement (mass/volume)Ordered By: Remus Doss on 02-08-2023 Creatinine [Mass/Vol] 1.22 mg/dL 0.55-1.02 [facility] Comment on above: The validity of the calculated GFR & GFRAA in patients over 70 years has not been determined. Clinical correlation is essential. Serum or plasma urea nitroge n measurement (mass/volume)Ordered By: Remus Doss on 02-08-2023 Urea nitrogen [Mass/Vol] 9 mg/dL 7-18 [facility] Squamous epithelial cells de tection in urine sediment by light microscopyOrdered By: Javy Doss on 02-08-2023 Epithelial cells.squamous LM Ql (Urine sed) 0-5 SEEN /hpf 5-10 [facility] Thin prep Papanicolaou smear with manual screeningOrdered By: Remus Doss on 02-08-2023 Thin prep Papanicolaou smear with manual screening 15 U/L 15-37 [facility] Thin prep Papanicolaou smear with manual screening 8 5-15 [facility] Urine blood detectionOrdered By: Rem Ungmeño on 02-08-2023 RBC Ql (U) Negative Negative [facility] RBC Ql (U) 0 SEEN /hpf 0-5 [facility] Urine clarityOrdered By: Rem us Doss on 02-08-2023 Clarity (U) Sl. Cloudy Clear [facility] Urine color determinationOrd ered By: Remus Doss on 02-08-2023 Color (U) Yellow Yellow [facility] Urine glucose detectionOrder ed By: Javy Doss on 02-08-2023 Glucose Ql (U) 1000 mg/dl Normal [facility] Urine leukocyte esterase det ection by dipstickOrdered By: Javy Doss on 02-08-2023 Leukocyte esterase Test strip Ql (U) 25 /ul Negative [facility] Urine pHOrdered By: Javy Tee gur on 02-08-2023 pH (U) 8.0 [pH] 5.0 - 8.0 [facility] Urine sediment bacteria coun t by microscopy (number/high power field)Ordered By: Javy Doss on 02-08-2023 Bacteria LM.HPF (Urine sed) [#/Area] 0 /[HPF] None Seen [facility] Urine specific gravity measu rementOrdered By: Javy Doss on 02-08-2023 Specific gravity (U) [Rel density] 1.010 1.002-1.030 [facility] Urobilinogen Auto test strip Ql (U)Ordered By: Javy Doss on 02-08-2023 Urobilinogen Ql (U) Normal mg/dl Normal [facility] Absolute lymphocyte countOrd ered By: Fabricio Guevara on 02-04-2023 Lymphocytes Auto (Unsp spec) [#/Vol] 3.25 10*3/uL 0.83-4.51 [facility] Basophil percentageOrdered B y: Fabricio Guevara on 02-04-2023 Basophil percentage 259 mg/dL 74-106 [facility] Basophil percentage 8.1 g/dL 6.4-8.2 [facility] Basophil percentage 0.40 mg/dL 0.20-1.00 [facility] Basophil percentage 138 mmol/L 136-145 [facility] Basophil percentage 3.5 mmol/L 3.5-5.1 [facility] Basophil percentage 103 mmol/L 98-107 [facility] Basophils (Bld) [#/Vol] 8.8 10*3/uL 4.4-11.0 [facility] Basophils (Bld) [#/Vol] 4.9 10*3/uL 2.0-7.7 [facility] Basophils/100 WBC (Bld) 0.3 % 0-1 [facility] Basophils/100 WBC (Bld) 55.7 % 47-70 [facility] Basophils/100 WBC (Bld) 0.5 % 0-5 [facility] Bilirubin [Mass/Vol] 0.40 mg/dL 0.20-1.00 [facility] Comment on above: For patients on eltr ombopag therapy, use of [facility] [facility] TBIL is not recommended. Chloride [Moles/Vol] 103 mmol/L 98-107 [facility] Eosinophils/100 WBC (Bld) 0.5 % 0-5 [facility] Glucose [Mass/Vol] 259 mg/dL 74-106 [facility] Comment on above: Glucose result great er than or equal to 200 mg/dLsuggests DIABETES MELLITUS per A.D.A. criteria. Neutrophils (Bld) [#/Vol] 4.9 10*3/uL 2.0-7.7 [facility] Neutrophils/100 WBC (Bld) 55.7 % 47-70 [facility] Potassium [Moles/Vol] 3.5 mmol/L 3.5-5.1 [facility] Protein [Mass/Vol] 8.1 g/dL 6.4-8.2 [facility] Sodium [Moles/Vol] 138 mmol/L 136-145 [facility] WBC (Bld) [#/Vol] 8.8 10*3/uL 4.4-11.0 [facility] Blood erythrocytes count (nu mber/volume)Ordered By: Fabricio Guevara on 02-04-2023 RBC (Bld) [#/Vol] 4.65 10*6/uL 4.2-5.4 [facility] Blood hemoglobin measurement (mass/volume)Ordered By: Fabricio Guevara on 02-04-2023 Hemoglobin (Bld) [Mass/Vol] 12.5 g/dL 12.0-15.0 [facility] Blood lymphocytes/100 leukoc ytesOrdered By: Fabricio Guevara on 02-04-2023 Lymphocytes/100 WBC (Bld) 37.0 % 19-41 [facility] Blood monocytes/100 leukocyt esOrdered By: Fabricio Guevara on 07-27-2023 Monocytes/100 WBC (Bld) 5.8 % 0-10 [facility] Blood platelet mean volumeOr dered By: Fabricio Guevara on 02-04-2023 Platelet mean volume (Bld) [Entitic vol] 9.4 fL 6.2-12.0 [facility] Determination of erythrocyte mean corpuscular volume (MCV)Ordered By: Fabricio Guevara on 02-04-2023 MCV (RBC) [Entitic vol] 80.0 fL 81-99 [facility] Hematocrit Auto (Bld) [Volum e fraction]Ordered By: Fabricio Guevara on 02-04-2023 Hematocrit (Bld) [Volume fraction] 37.2 % 37-47 [facility] Laboratory - Chemistry and C hemistry - challengeOrdered By: Fabricio Guevara on 02-04-2023 ALP [Catalytic activity/Vol] 94 U/L 45-117 [facility] ALT [Catalytic activity/Vol] 29 U/L 13-56 [facility] CO2 [Moles/Vol] 25.0 mmol/L 21.0-32.0 [facility] Globulin (S) [Mass/Vol] 4.7 g/dL 2.2-4.2 [facility] Lipase [Catalytic activity/Vol] 51 U/L 13-75 [facility] Comment on above: Please note:LIPASE r evised reference range effective 22. New Lipase methodology. Expected to produce lower values than the previous assay method. NEW Reference Range: 13 - 75 U/L Urea nitrogen/Creatinine [Mass ratio] 7.0 mg/mg 10-20 [facility] Laboratory - Hematology and Cell countsOrdered By: Fabricio Guevara on 02-04-2023 Erythrocyte distribution width (RBC) [Entitic vol] 39.2 fL 35.1-43.9 [facility] Erythrocyte distribution width (RBC) [Ratio] 13.6 % 11.6-14.6 [facility] Immature granulocytes/100 WBC (Bld) 0.700 % 0.0-0.9 [facility] Comment on above: IG% - Immature Granu locytes (promyelocytes, myelocytes and metamyelocytes) > 1% indicates that a LEFT SHIFT is Present. MCH (RBC) [Entitic mass] 26.9 pg 27.0-32.0 [facility] Nucleated RBC/100 WBC (Bld) [Ratio] 0 % 0-5 [facility] MCHC Auto (RBC) [Mass/Vol]Or dered By: Fabricio Guevara on 02-04-2023 MCHC (RBC) [Mass/Vol] 33.6 g/dL 32-36 [facility] No Panel InformationOrdered By: Fabricio Guevara on 02-04-2023 Estimated GFR (MDRD) Amer 84 mL/min >60 [facility] Estimated GFR (MDRD) Non-Af Amer 69 mL/min >60 [facility] 26.9 pg 27.0-32.0 [facility] 13.6 % 11.6-14.6 [facility] 39.2 fl 35.1-43.9 [facility] 0.700 % 0.0-0.9 [facility] 0 % 0-5 [facility] 69 mL/min >60 [facility] 84 mL/min >60 [facility] 7.0 RATIO 10-20 [facility] 4.7 g/dL 2.2-4.2 [facility] 51 U/L 13-75 [facility] 94 U/L 45-117 [facility] 29 U/L 13-56 [facility] 25.0 mmol/L 21.0-32.0 [facility] Platelets bldOrdered By: Chidi Guevara on 02-04-2023 Platelets (Bld) [#/Vol] 358 10*3/uL 150-450 [facility] Serum or plasma albumin hussein urement (mass/volume)Ordered By: Fabricio Guevara on 02-04-2023 Albumin [Mass/Vol] 3.4 g/dL 3.2-5.0 [facility] Serum or plasma albumin/glob ulin mass ratioOrdered By: Fabricio Guevara on 02-04-2023 Albumin/Globulin [Mass ratio] 0.7 {ratio} 0.9-2.4 [facility] Serum or plasma calcium hussein urement (mass/volume)Ordered By: Fabricio Guevara on 02-04-2023 Calcium [Mass/Vol] 9.2 mg/dL 8.5-10.1 [facility] Serum or plasma creatinine m easurement (mass/volume)Ordered By: Fabricio Guevara on 07-27-2023 Creatinine [Mass/Vol] 1.00 mg/dL 0.55-1.02 [facility] Comment on above: The validity of the calculated GFR & GFRAA in patients over 70 years has not been determined. Clinical correlation is essential. Serum or plasma urea nitroge n measurement (mass/volume)Ordered By: Fabricio Guevara on 02-04-2023 Urea nitrogen [Mass/Vol] 7 mg/dL 7-18 [facility] Thin prep Papanicolaou smear with manual screeningOrdered By: Fabricio Guevara on 02-04-2023 Thin prep Papanicolaou smear with manual screening 18 U/L 15-37 [facility] Thin prep Papanicolaou smear with manual screening 10 5-15 [facility] CBC W Auto Differential pane l (Bld)Ordered By: Yashira Cleaning on 01-24-2023 Basophils (Bld) [#/Vol] 0.0 10*3/uL 0.0 - 0.2 10*3/uL [facility] [employer] Basophils/100 WBC (Bld) 0.3 % 0.0 - 2.0 % [facility] [employer] Eosinophils (Bld) [#/Vol] 0.0 10*3/uL 0.0 - 0.5 10*3/uL [facility] [employer] Eosinophils/100 WBC (Bld) 0.3 % Low 1.0 - 6.0 % [employer] Erythrocyte distribution width (RBC) [Ratio] 13.9 % 11.5 - 14.5 % [employer] Hematocrit (Bld) [Volume fraction] 37.2 % 35.0 - 47.0 % [employer] Hemoglobin (Bld) [Mass/Vol] 12.4 g/dL 11.7 - 16.0 g/dL [facility] [employer] Immature granulocytes (Bld) [#/Vol] 0.1 10*3/uL High NINF - 0.0 10*3/uL [employer] Immature granulocytes/100 WBC (Bld) 0.6 % High NINF - 0.0 % [employer] Interpretation and review of laboratory results Abnormal [facility] [employer] Lymphocytes (Bld) [#/Vol] 2.6 10*3/uL 1.0 - 4.3 10*3/uL [facility] Lymphocytes/100 WBC (Bld) 33.6 % 20.0 - 40.0 % [employer] MCH (RBC) [Entitic mass] 26.3 pg 26.0 - 34.0 pg [facility] MCHC (RBC) [Mass/Vol] 33.3 % 32.0 - 36.0 % [facility] MCV (RBC) [Entitic vol] 79.0 fL Low 80.0 - 98.0 fL [facility] Monocytes (Bld) [#/Vol] 0.5 10*3/uL 0.0 - 0.8 10*3/uL [facility] Monocytes/100 WBC (Bld) 5.9 % 2.0 - 10.0 % [facility] Neutrophils (Bld) [#/Vol] 4.6 10*3/uL 1.8 - 7.0 10*3/uL [facility] Neutrophils/100 WBC (Bld) 59.3 % 40.0 - 80.0 % [facility] Platelet mean volume (Bld) [Entitic vol] 9.1 fL 7.4 - 12.4 fL [facility] Comment on above: MPV is a calculated measurement using platelet volume ratio Platelets (Bld) [#/Vol] 342 10*3/uL 140 - 440 10*3/uL [facility] RBC (Bld) [#/Vol] 4.71 10*6/uL 3.8 - 5.20 10*6/uL [facility] WBC (Bld) [#/Vol] 7.8 10*3/uL 3.6 - 10.7 10*3/uL [facility] Comprehensive metabolic 1998 panelon 01-24-2023 Albumin [Mass/Vol] 4.2 g/dL 3.5 - 5.0 g/dL [facility] ALP [Catalytic activity/Vol] 74 U/L 38 - 126 U/L [facility] ALT [Catalytic activity/Vol] 20 U/L 0 - 34 U/L [facility] Anion gap [Moles/Vol] 10 mmol/L 3 - 13 mmol/L [facility] AST [Catalytic activity/Vol] 28 U/L 15 - 46 U/L [facility] Bilirubin [Mass/Vol] 0.7 mg/dL 0.2 - 1 .3 mg/dL [facility] Calcium [Mass/Vol] 9.4 mg/dL 8.4 - 10. 4 mg/dL [facility] Chloride [Moles/Vol] 100 mmol/L 98 - 10 7 mmol/L [facility] CO2 [Moles/Vol] 25 mmol/L 22 - 30 mmol/L [facility] Creatinine [Mass/Vol] 0.78 mg/dL 0.52 - 1.04 mg/dL [facility] GFR/1.73 sq M.predicted MDRD (S/P/Bld) [Vol rate/Area] - PINF [facility] Comment on above: Calculation based on the Chronic Kidney Disease Epidemiology Collaboration (CKD-EPI) equation refit without adjustment for race Glucose [Mass/Vol] 220 mg/dL High 70 - 100 mg/dL [facility] Interpretation and review of laboratory results Abnormal [facility] Potassium [Moles/Vol] 3.6 mmol/L 3.5 - 5.1 mmol/L [facility] Protein [Mass/Vol] 8.1 g/dL 6.3 - 8.2 g/dL [facility] Sodium [Moles/Vol] 135 mmol/L 135 - 145 mmol/L [facility] Urea nitrogen [Mass/Vol] 9 mg/dL 7 - 17 mg/dL [facility] ECG 12-LEADon 01-24-2023 ECG 12-LEAD IMPRESSION: SINUS RHYTHM VENTRICULAR PREMATURE COMPLEX CONSIDER LEFT VENTRICULAR HYPERTROPHY No previous ECG available for comparison Electronically Signed On 01-24-2023 11:21:48 EDT by Abdirizak Ramirez [facility] ED Nursing Noteon 01-24-2023 ED Nursing Note Patient to room 15 w ith c/o vomiting for 3 weeks. Patient reports being at [facility] and being told it was [facility], and there was nothing more they could do for her. Patient reports having Zofran at home that she doesn't take, because it has not relieved her symptoms. V/S obtained, call light within reach. Normal [facility] ED Provider Noteon ED Provider Note [facility] ED EMERGENCY DEPARTMENT ENCOUNTER Pt Name: Ghislaine Givens Birthdate 1990 Date of evaluation: 01/24/2023 Provider: Abdirizak Ramirez MD CHIEF COMPLAINT Chief Complaint Patient presents with Vomiting Syncope HISTORY OF PRESENT ILLNESS I wore proper PPE for the entirety of this encounter. Ghislaine Givens is a 32 y.o. female who presents to the emergency department with nausea, vomiting, diffuse abdominal pain and also syncopal episode 3 days ago while in the shower. Patient notes her symptoms have been present for 3 weeks. She has been seen at an outside ER and been prescribed stomach acid medications. She has a history of diabetes on insulin. She denies prior surgical history. Nursing Notes were reviewed. Limitations to history: None Outside historians: Significant other REVIEW OF SYSTEMS (2+ for level 4; 10+ for level 5) Constitutional: as noted in HPI, and negative for fever/chills Eyes: as noted in HPI, and negative for vision changes ENT: as noted in HPI, and negative for cough CV: as noted in HPI, and negative for chest pain, negative for palpitations Resp: as noted in HPI, and negative for shortness of breath GI: as noted in HPI : as noted in HPI, and negative for urinary symptoms MSK: as noted in HPI, and negative for muscle pain Skin: as noted in HPI, and negative for rash Neuro: as noted in HPI, and negative for headaches, negative for acute focal weakness/numbness PAST MEDICAL HISTORY Past Medical History: Diagnosis Date Cannabinoid hyperemesis syndrome Cannabis abuse SURGICAL HISTORY History reviewed. No pertinent surgical history. CURRENT MEDICATIONS Previous Medications BISACODYL (DULCOLAX) 10 MG SUPPOSITORY 10 mg. INSULIN GLARGINE (LANTUS) 100 UNIT/ML PEN Insulin Glargine (Lantus Solostar U-100 Insulin) 100 unit/mL (3 mL) insulin pen Active 15 UNIT SC TWICE A DAY August 12, 2022 1:00am OMEPRAZOLE (PRILOSEC) [address] CAPSULE Take 40 mg by mouth. TRAZODONE (DESYREL) 300 MG TABLET Take 300 mg by mouth. ALLERGIES Patient has no known allergies. FAMILY HISTORY No family history on file. SOCIAL HISTORY Social History Socioeconomic History Marital status: Tobacco Use Smoking status: Every Day Packs/day: 0.50 Types: Cigarettes Substance and Sexual Activity Alcohol use: Yes Comment: occ. Drug use: Yes Types: Marijuana Comment: +cannabinoid hyperemesis SCREENINGS PHYSICAL EXAM (up to 7 for level 4, 8 or more for level 5) ED Triage Vitals [01/24/23 1028] Temp Heart Rate Resp BP 36.3 ?C (97.3 ?F) 87 16 (!) 141/102 SpO2 Temp Source Heart Rate Source Patient Position 96 % Oral Monitor -- BP Location FiO2 (%) -- -- Constitutional: No acute distress HEENT:Head: Atraumatic/normocephali c Eyes: Conjunctivae normal. ENT: Mucous membranes moist. CV: RRR RESP: CTAB, good respiratory effort, no increased wob GI: Abdomen soft, mild diffuse tenderness, non-distended, +BS, no guarding or rebound tenderness MSK: Normal bulk and tone, no gross deformity EXTR: Warm and well perfused, no edema SKIN: No rash/bruising/erythema PSYCH: Appropriate affect, cooperative behavior NEURO: Alert and oriented x 3, face symmetric, no slurred speech DIAGNOSTIC RESULTS Procedures/EKG: EKG was reviewed by myself. Physician EKG interpretation can be found in [employer] RADIOLOGY (Per Emergency Physician): Interpretation per the Radiologist below, if available at the time of this note: No orders to display LABS: Labs Reviewed CBC WITH AUTO DIFFERENTIAL - Abnormal Result Value Auto WBC 7.8 RBC 4.71 Hemoglobin 12.4 Hematocrit 37.2 MCV 79.0 (*) MCH 26.3 MCHC 33.3 RDW 13.9 Platelets 342 MPV 9.1 Neutrophils Relative 59.3 Lymphocytes Relative 33.6 Monocytes Relative 5.9 Eosinophils Relative 0.3 (*) Basophils Relative 0.3 Immature Grans % 0.6 (*) Neutrophils Absolute 4.6 Lymphocytes Absolute 2.6 Monocytes Absolute 0.5 Eosinophils Absolute 0.0 Basophils Absolute 0.0 Immature Grans Absolute 0.1 (*) COMPREHENSIVE METABOLIC PANEL - Abnormal SODIUM 135 POTASSIUM 3.6 CHLORIDE 100 CARBON DIOXIDE 25 ANION GAP 10 UREA NITROGEN 9 CREATININE 0.78 GLUCOSE 220 (*) CALCIUM 9.4 AST (SGOT) 28 ALT 20 ALKALINE PHOSPHATASE 74 ALBUMIN 4.2 BILIRUBIN, TOTAL 0.7 TOTAL PROTEIN 8.1 eGFR >90.0 COMPLETE URINALYSIS - Abnormal Color, Urine Yellow Clarity, Urine Turbid (*) pH, Urine 6.5 Leukocytes, Urine 250 (*) Nitrite, Urine Negative Protein, Urine 20 (*) Glucose, Urine 500 (*) Bilirubin, Urine Negative Ketones, Urine 20 (*) Urobilinogen, Urine Normal Blood, Urine Negative Volume, Urine 12 mL RBC, Urine 0-2 WBC, Urine 6-10 (*) Squamous Epithelial, Urine 11-25 (*) Bacteria, Urine Few (*) Mucus, Urine Few Amorphous Crystals, Urine Few (*) SPECIFIC GRAVITY OF URINE (NUMERIC) 1.016 LIPASE - Normal LIPASE 130 MAGNESIUM - Normal (more content not included)... Normal [facility] Laboratory - Chemistry and C hemistry - challengeon 01-24-2023 Troponin I.cardiac [Mass/Vol] ng/mL 0.000 - 0.034 ng/mL [facility] Lipase [Catalytic activity/Vol] 130 U/L 23 - 300 U/L [facility] Magnesium [Mass/Vol] 1.8 mg/dL 1.6 - 2 .3 mg/dL [facility] Beta HCG ( test) Ql Negative Negative [facility] Comment on above: Please note: Very di lute urine specimens, as indicated by a low specific gravity, may not contain business representative levels of hCG. If is still suspected, a first morning urine specimen should be collected 48 hours later and tested. Beta HCG ( test) Ql (U) is the most common reason for HCG in urine, although choriocarcinoma, hydatidiform mole, and certain nontrophoblastic malignancies also result in detectable urinary HCG levels. Sensitivity = 20mIU/mL. [facility] No Panel Informationon 01-24 P Ruso -3 degrees [facility] [place] Interval 128 ms [facility] QRS Ruso -11 degrees [facility] QRSD [facility]val [facility] Inter[facility] 396 ms [facility] QTC Interval 425 ms [facility] T Wave Ruso 8 degrees [facility] SINUS RHYTHM VENTRICULAR PREMATURE COMPLEX CONSIDER LEFT VENTRICULAR HYPERTROPHY No previous ECG available for comparison Electronically Signed On 01-24-2023 11:21:48 EDT by Abdirizak Ramirez CV Abdirizak Camacho MD - 01/24/2023 IMPRESSION: SINUS RHYTHM VENTRICULAR PREMATURE COMPLEX CONSIDER LEFT VENTRICULAR HYPERTROPHY No previous ECG available for comparison Electronically Signed On 01-24-2023 11:21:48 EDT by Abdirizak Ramirez [facility] Interpretation and review of laboratory results Normal [facility] Troponin I.cardiac [Mass/Vol ]on 01-24-2023 Interpretation and review of laboratory results Normal [facility] Patients with high levels of Biotin oral intake (ie >5 mg/day) may have falsely decreased Troponin levels. [facility] Urinalysis complete panel (U )on 01-24-2023 Amorphous Crystals, Urine Few Abnormal Negative /HPF [facility] Bacteria LM.HPF (Urine sed) [#/Area] Few Abnormal Negative /HPF [facility] Bilirubin Ql (U) Negative Negative mg/dL [facility] Clarity (U) Turbid Abnormal Clear [facility] Color (U) Yellow Lt. Yellow [facility] Epithelial cells.squamous LM.HPF (Urine sed) [#/Area] 11-25 [facility] Glucose Ql (U) 500 mg/dL Abnormal Normal (<70) [facility] Hemoglobin Ql (U) Negative Negative mg/dL [facility] Interpretation and review of laboratory results Abnormal [facility] Ketones (U) [Mass/Vol] 20 mg/dL Abnormal Negative [facility] Leukocyte esterase Test strip Ql (U) 250 Abnormal Negative [place]/uL [facility] Mucus LM.HPF (Urine sed) [#/Area] Few Negative /LPF [facility] Nitrite Ql (U) Negative Negative [facility] th pH (U) 6.5 [pH] 5.0 - 8.0 pH [facility] Protein (U) [Mass/Vol] 20 mg/dL Abnormal Negative [facility] RBC LM.HPF (Urine sed) [#/Area] 0-2 [facility] Specific gravity (U) [Rel density] 1.016 1.005 - 1.030 [facility] Urobilinogen (U) [Mass/Vol] Normal Normal (0-1) mg/dL [facility] Volume, Urine 12 mL [facility] WBC LM.HPF (Urine sed) [#/Area] 6-10 Abnormal [facility] Vital signson 01-24-2023 Heart rate 69 /min bpm [facility] CBC + DIFFon 01-17-2023 Baso # 0.00 x10EE3/UL Normal 0.00 - 0.10 [facility] Comment on above: Performed By: #### [id number] #### [address] [address] Basophils/100 WBC (Bld) 0.4 % Normal 0.0 - 2.0 J oel [facility] Comment on above: Performed By: #### [id number] #### [facility],[address] [place] [address] CBC + DIFF Normal [facility] Comment on above: Result Comment: CBC- COMPLETE BLOOD COUNT Performed By: #### [id number] #### [facility],[address] [place] [address] EO # 0.00 x10EE3/UL Normal 0.00 - 0.50 [facility] Comment on above: Performed By: #### 2 [id number] #### [facility],[address] [place] [address] Eosinophils/100 WBC (Bld) 0.3 % Normal 0.0 - 7.0 [facility] Comment on above: Performed By: #### [id number] #### [facility],[address] [place] [address] Erythrocyte distribution width (RBC) [Ratio] 15.2 % Normal 12.0 - 15.6 [facility] Comment on above: Performed By: #### [id number] #### [facility],[address] [place] [address] Hematocrit (Bld) [Volume fraction] 40.9 % Normal 34.0 - 46.0 [facility] [place] Comment on above: Performed By: #### 2 [id number] #### [facility] [place],[address] [place] [address] Hemoglobin (Bld) [Mass/Vol] 13.6 g/dL Normal 12.0 - 16.0 [facility] [place] Comment on above: Performed By: #### 2 10462 #### [facility] [place],[address] [place] [address] 19451 Lymph # 3.30 x10EE3/UL High 0.80 - 2.80 [facility] [place] Comment on above: Performed By: #### 2 41528 #### [facility] [place],[address] [place], [place] [id number] Lymphocytes/100 WBC (Bld) 30.0 % Normal 20.0 - 45.0 [facility] [place] Comment on above: Performed By: #### 2 30440 #### [facility] [place],[address] [place] [address] MANUAL DIFF N/A Normal [facility] [place] Comment on above: Performed By: #### 2 12570 #### [facility] [place],[address] [place] [address] MCH (RBC) [Entitic mass] 27 pg Normal 27 - 33 [facility] [place] Comment on above: Performed By: #### 2 55744 #### [facility] [place],[address] [place] [address] MCHC 33 X10 3 Normal 32 - 36 [facility] [place] Comment on above: Performed By: #### 2 18571 #### [facility] [place],[address] [place] [address] MCV (RBC) [Entitic vol] 80 fL Normal 80 - 99 [facility] Comment on above: Performed By: #### 2 72663 #### [facility] [place],[address] [place] [address] Bacon # 0.80 x10EE3/UL Normal 0.20 - 1.00 [facility] [place] Comment on above: Performed By: #### 2 64044 #### [facility] [place],[address] [place] [address] MONOS % 7.6 % Normal 0.0 - 10.0 [facility] [place] Comment on above: Performed By: #### 2 30354 #### [facility] [place],[address] [place] [address] Morphology Franky (Bld) [Interp] N/A Normal [facility] [place] Comment on above: Performed By: #### 2 64784 #### [facility] [place],[address] [place] [address] Neut # 6.80 x10EE3/UL Normal 1.50 - 7.10 [facility] [place] Comment on above: Performed By: #### 2 75829 #### [facility] [place],[address] [place] [address] 71969 Neutrophils/100 WBC (Bld) 61.7 % Normal 46.0 - 76.0 [facility] [place] Comment on above: Performed By: #### 2 11352 #### [facility] [place],[address] [place] [address] 11742 PLATELET 504 x10EE3/UL High 150 - 450 [facility] [place] Comment on above: Performed By: #### 2 89855 #### [facility] [place],[address] [place] [address] 04416 Platelet mean volume (Bld) [Entitic vol] 7.2 fL Normal 6.6 - 10.5 [facility] [place] Comment on above: Result Comment: AUTO MATED DIFFERENTIAL Performed By: #### 2 73708 #### [facility] [place],[address] [place] [address] 56265 RBC 5.14 x 10EE6/UL Normal 4.10 - 5.30 [facility] [place] Comment on above: Performed By: #### 2 22321 #### [facility] [place],[address] [place] [address] 46722 WBC 11.1 x 10EE3/UL High 4.5 - 10.8 [facility] [place] Comment on above: Performed By: #### 2 81444 #### [facility] [place],[address] [place] [address] 12170 CMP with eGFRon 01-17-2023 AGE 32 years Normal [facility] [place] Comment on above: Performed By: #### 2 33278 #### [facility] [place],[address] [place] [address] 00391 Albumin [Mass/Vol] 3.6 g/dL Normal 3.4 - 5.0 [facility] [place] Comment on above: Performed By: #### 2 42672 #### [facility] [place],[address] [place] [address] 03859 Albumin/Globulin [Mass ratio] 0.7 {ratio} Low 0.9 - 1.6 [facility] [place] Comment on above: Performed By: #### 2 52933 #### [facility] [place],[address] [place] [address] 09390 ALK PHOS 73 U/L Normal 46 - 116 [facility] [place] Comment on above: Performed By: #### 2 20787 #### [facility] [place],[address] [place] [address] 55256 ALT [Catalytic activity/Vol] 21 U/L Normal 14 - 59 [facility] [place] Comment on above: Performed By: #### 2 12583 #### [facility] [place],[address] [place] [address] 19588 Anion gap [Moles/Vol] 17 mmol/L Normal 10 - 20 [facility] Comment on above: Performed By: #### 2 41086 #### [facility] [place],[address] [place] [address] 65651 AST [Catalytic activity/Vol] 12 U/L Low 13 - 39 [facility] [place] Comment on above: Performed By: #### 2 05707 #### [facility] [place],[address] [place] [address] 13859 B/C RATIO 9 ratio Normal 0 - 30 [facility] [place] Comment on above: Performed By: #### 2 92321 #### [facility] [place],[address] [place] [address] 23335 Bilirubin [Mass/Vol] 0.7 mg/dL Normal 0.2 - 1.0 [facility] [place] Comment on above: Performed By: #### 2 15733 #### [facility] [place],[address] [place] [address] 35870 Calcium [Mass/Vol] 9.1 mg/dL Normal 8.5 - 10.1 [facility] [place] Comment on above: Performed By: #### 2 99064 #### [facility] [place],[address] [place] [address] 01278 Chloride [Moles/Vol] 98 mmol/L Normal 98 - 107 [facility] [place] Comment on above: Performed By: #### 2 03407 #### [facility] [place],[address] [place] [address] 41788 CMP with eGFR Normal [facility] [place] Comment on above: Result Comment: COMP REHENSIVE METABOLIC PANEL Performed By: #### 2 18027 #### [facility] [place],[address] [place] [address] 22723 CO2 [Moles/Vol] 23.6 mmol/L Normal 21.0 - 32.0 [facility] [place] Comment on above: Performed By: #### 2 91187 #### [facility] [place],[address] [place] [address] 94078 Creatinine [Mass/Vol] 1.10 mg/dL High 0.55 - 1.02 [facility] Comment on above: Performed By: #### 2 62031 #### [facility] [place],[address] [place] [address] 22169 eGFR 58 ML/MINUTE Low 60 - 999 [facility] [place] Comment on above: Performed By: #### 2 67066 #### [facility] [place],[address] [place] [address] 78460 GFR/1.73 sq M.predicted among non-blacks MDRD (S/P/Bld) [Vol rate/Area] mL/min/{1.73_m2} Normal 60 - 999 [facility] [place] Comment on above: Result Comment: ACCO RDING TO THE NATIONAL KIDNEY DISEASE EDUCATION PROGRAM(NKDE), A NORMAL eGFR IS A VALUE GREATER THAN OR EQUAL TO 60 ML/MIN/1.73 SQ METERS. CHRONIC KIDNEY DISEASE: <60mL/MIN/1.73 SQ METERS KIDNEY FAILURE: <15mL/MIN/1.73 SQ METERS THIS TEST SHOULD ONLY BE USED FOR PATIENTS 18 YEARS OF AGE AND OLDER. Performed By: #### 2 94900 #### [facility] [place],[address] [place] [address] 21620 Globulin (S) [Mass/Vol] 5.1 g/dL High 1.5 - 3.8 [facility] Comment on above: Performed By: #### 2 99469 #### [facility] [place],[address] [place] [address] 19523 Glucose [Mass/Vol] 191 mg/dL High 74 - 106 [facility] [place] Comment on above: Performed By: #### 2 91537 #### [facility] [place],[address] [place] [address] 87040 Potassium [Moles/Vol] 3.7 mmol/L Normal 3.5 - 5.1 [facility] Comment on above: Performed By: #### 2 98597 #### [facility] [place],[address] [place] [address] 22540 Protein [Mass/Vol] 8.7 g/dL High 6.4 - 8.2 [facility] [place] Comment on above: Performed By: #### 2 59508 #### [facility] [place],[address] [place] [address] 99443 Sodium [Moles/Vol] 135 mmol/L Low 136 - 145 [facility] [place] Comment on above: Performed By: #### 2 68015 #### [facility] [place],[address] [place] [address] 39301 Urea nitrogen [Mass/Vol] 10 mg/dL Normal 7 - 18 [facility] [place] Comment on above: Performed By: #### 2 00085 #### [facility] [place],[address] [place] [address] ABDOMEN/PELVIS [facility] 2022 CT ABDOMEN/PELVIS [place] [address] Patient: GHISLAINE GIVENS Phone#: : 1990 Age: 32 Gender: F Pt. Type: ER Account: [id number] Location: [facility] Ordering: GERALDINE ROLAND Exam Date: 01/17/2023/8:31 Family Phys: Charge Code: [id number] Physician: [place] Order #: [id number] Dose#: PROCEDURE: CT ABDOMEN/PELVIS WITH CONTRAST COMPARISON: [facility], CT, ABDOMEN/PELVIS W CON, 01/24/2022, 18:58. INDICATIONS: Abdominal pain. TECHNIQUE: After obtaining the patient's consent, CT images were created with non-ionic intravenous contrast material. All CT scans at this facility use dose modulation, iterative reconstruction, and/or weight based dosing when appropriate to reduce radiation dose to as low as reasonably achievable. IV CONTRAST: Omnipaque 350,80ml TOTAL DOSE: 27.10 CTDIvol(mGy) FINDINGS: LIVER: Normal. No enlargement, atrophy, abnormal density, or significant focal lesion. BILIARY: Normal. No visible dilatation or calcification. PANCREAS: Normal. No lesion, fluid collection, ductal dilatation, or atrophy. SPLEEN: Normal. No enlargement or focal lesion. KIDNEYS: Normal. No mass, obstruction, or calcification. ADRENALS: Normal. No mass or enlargement. AORTA/VASCULAR: Normal. No aneurysm or dissection. RETROPERITONEUM: Normal. No mass or adenopathy. BOWEL/MESENTERY: THERE IS UNDERFILLING VERSUS MUCOSAL EDEMA AT THE RECTOSIGMOID COLON. THERE IS MODERATE STOOL RETENTION PROXIMALLY. ABDOMINAL WALL: Normal. No mass or hernia. URINARY BLADDER: Normal. No visible focal wall thickening, lesion, or calculus. PELVIC NODES: Normal. No adenopathy. PELVIC ORGANS: Normal. No visible mass. Pelvic organs appropriate for patient age. BONES: Normal. No bony lesion or fracture. LUNG BASES: Normal. No visible pulmonary or pleural disease. Continued Report - Page 2 of 2 Patient: GHISLAINE GIVENS Phone#: : 1990 Age: 32 Gender: F Pt. Type: ER Account: [id number] Location: 052 Ordering: GERALDINE ROLAND Exam Date: 01/17/2023/8:31 Family Phys: Charge Code: [id number] Physician: [place] Order #: [id number] Dose#: OTHER: Negative. CONCLUSION: 1. UNDER FILLING VERSUS MUCOSAL THICKENING AT THE RECTOSIGMOID COLON. Dictated by: Cristy Penaloza MD on 01/17/2023 at 9:14 Approved by: Cristy Penaloza MD on 01/17/2023 at 9:19 Normal [facility] [place] DRUG SCREEN URINE MEDICon AMPHETAMINES Negative Normal [facility] [place] Comment on above: Performed By: #### 2 41854 #### [facility] [place],[address] [place] [address],[facility] [address] B-DIAZEPINES Negative Normal [facility] [place] Comment on above: Performed By: #### 2 18121 #### [facility] [place],[address] [place] [address],[place] [facility] [address] BARBITURATES Negative Normal [facility] [place] Comment on above: Performed By: #### 2 90646 #### [facility] [place],[address] [place] [address],[place] [facility] [address] COCAINE Negative Normal [facility] [place] Comment on above: Performed By: #### 2 55576 #### [facility] [place],[address] [place] [address] 80586 DRUG SCREEN URINE MEDIC Normal [facility] Comment on above: Result Comment: DRUG SCREEN - URINE Performed By: #### 2 31566 #### [facility] [place],[address] [facility] [address] METHADONE Negative Normal [facility] [place] Comment on above: Performed By: #### 2 38325 #### [facility] [place],[address] [place] [address] 44334 OPIATES Negative Normal [facility] [place] Comment on above: Performed By: #### 2 41648 #### [facility] [place],[address] [place] [address] 13190 PCP Negative Normal [facility] [place] Comment on above: Performed By: #### 2 98568 #### [facility] [place],[address] [place] [address] 64009 THC Positive Normal [facility] [place] Comment on above: Result Comment: ERASTO ENTS RECEIVING PROTON PUMP INHIBITORS MAY DEMONSTRATE FALSE POSITIVE THC/CANNABINOID RESULTS. AN ALTERNATIVE CONFIRMATORY METHOD SHOULD BE CONSIDERED TO VERIFY POSITIVE RESULTS. Performed By: #### 2 08500 #### [facility] [place],[address] [place], [place] [address] [id number] LIPASEon 01-17-2023 Lipase [Catalytic activity/Vol] 143.0 U/L Normal 73.0 - 393 [facility] [place] Comment on above: Performed By: #### 2 76401 #### [facility] [place],[address] [place], [place] [phone] SERUM QUALon 01-17 EXTERNAL QC DONE? YES Normal [facility] [place] Comment on above: Performed By: #### 2 68290 #### [facility] [place],[address] [place] [address] INTERNAL QC PASS Normal [facility] [place] Comment on above: Performed By: #### 2 48053 #### [facility] [place],[address] [place] [address] SER Negative Normal NEGATIVE [facility] [place] Comment on above: Performed By: #### 2 49684 #### [facility] [place],[address] [place], [place] [phone] URINALYSISon 01-17-2023 Amorphous NONE Normal [facility] [place] Comment on above: Performed By: #### 2 55323 #### [facility] [place],[address] [place] [address] Bacteria 1+ Normal [facility] [place] Comment on above: Performed By: #### 2 25380 #### [facility] [place],[address] [place] [address] 53019 Bilirubin Ql (U) Negative Normal NORMAL: NEGATIVE [facility] [place] Comment on above: Performed By: #### 2 25031 #### [facility] [place],[address] [place], [place] [phone] Casts NONE Normal [facility] [place] Comment on above: Performed By: #### 2 64579 #### [facility] [place],[address] [place], [place] [phone] Clarity (U) clear Normal NORMAL: CLEAR [facility] [place] Comment on above: Performed By: #### 2 51191 #### [facility] [place],[address] [place] [address] Color (U) p.yel Normal NORMAL: YELLOW [facility] [place] Comment on above: Performed By: #### 2 59122 #### [facility] [place],[address] [place] [address] Crystals LM Nom (Urine sed) NONE Normal [facility] [place] Comment on above: Performed By: #### 2 14978 #### [facility] [place],[address] [place], [place] [phone] Epi Cells MODERATE Normal [facility] [place] Comment on above: Performed By: #### 2 54863 #### [facility] [place],[address] [place] [address] Glucose Ql (U) 50 Abnormal NORMAL: NORMAL [facility] [place] Comment on above: Performed By: #### 2 04043 #### [facility] [place],[address] [place] [address] Hemoglobin Ql (U) Negative Normal NORMAL: NEGATIVE [facility] [place] Comment on above: Performed By: #### 2 73459 #### [facility] [place],[address] [place] [address] Ketone 15 Abnormal NORMAL: NEGATIVE [facility] [place] Comment on above: Performed By: #### 2 53049 #### [facility] [place],[address] [place] [address] 46125 Leukocytes 100 Abnormal NORMAL: NEGATIVE [facility] [place] Comment on above: Performed By: #### 2 82928 #### [facility] [place],[address] [place] [address] Mucous NONE Normal [facility] [place] Comment on above: Performed By: #### 2 51156 #### [facility] [place],[address] [place] [address] 28779 Nitrite Ql (U) Negative Normal NORMAL: NEGATIVE [facility] [place] Comment on above: Performed By: #### 2 41641 #### [facility] [place],[address] [place] [address] pH (U) 7 [pH] Normal NORMAL: 5.0-8.0 [facility] [place] Comment on above: Performed By: #### 2 19285 #### [facility] [place],[address] [place] [address] Protein Ql (U) Negative Normal NORMAL: NEGATIVE [facility] [place] Comment on above: Performed By: #### 2 02344 #### [facility] [place],[address] [place] [address] Rbc NONE Normal 0-3/hpf [facility] [place] Comment on above: Performed By: #### 2 34444 #### [facility] [place],[address] [place] [address] Sp [place] 1.005 Low NORMAL: 1.010-1.030 [facility] [place] Comment on above: Performed By: #### 2 00951 #### [facility] [place],[address] [place] [address] Specimen Type UNSPECIFIED Normal [facility] [place] Comment on above: Performed By: #### 2 55764 #### [facility] [place],[address] [place] [address] Urinalysis dipstick W Reflex Microscopic panel (U) SEE BELOW Normal [facility] [place] Comment on above: Result Comment: MICR OSCOPIC Performed By: #### 2 75409 #### [facility] [place],[address] [place] [address] Urobilinog NORM Normal NORMAL: NORMAL [facility] [place] Comment on above: Performed By: #### 2 17967 #### [facility] [place],[address] [place] [address] Wbc 1-5 Normal 0-5/hpf [facility] [place] Comment on above: Performed By: #### 2 61671 #### [facility] [place],[address] [place] [address] Yeast NONE Normal [facility] [place] Comment on above: Performed By: #### 2 58044 #### [facility] [place],[address] [place] [address] 08874 Absolute lymphocyte countOrd ered By: Lexus Villatoro on 01-15-2023 Lymphocytes Auto (Unsp spec) [#/Vol] 3.20 10*3/uL 0.83-4.51 [facility] Basophil percentageOrdered B y: Lexus Villatoro on 01-15-2023 Basophil percentage 154 mg/dL 74-106 [facility] Basophil percentage 7.1 g/dL 6.4-8.2 [facility] Basophil percentage 0.60 mg/dL 0.20-1.00 [facility] Basophil percentage 136 mmol/L 136-145 [facility] Basophil percentage 3.1 mmol/L 3.5-5.1 [facility] Basophil percentage 105 mmol/L 98-107 [facility] Basophils (Bld) [#/Vol] 9.4 10*3/uL 4.4-11.0 [facility] Basophils (Bld) [#/Vol] 5.3 10*3/uL 2.0-7.7 [facility] Basophils/100 WBC (Bld) 0.3 % 0-1 [facility] Basophils/100 WBC (Bld) 56.4 % 47-70 [facility] Bilirubin [Mass/Vol] 0.60 mg/dL 0.20-1.00 [facility] Comment on above: For patients on eltr ombopag therapy, use of [facility] TBIL is not recommended. Chloride [Moles/Vol] 105 mmol/L 98-107 [facility] Eosinophils/100 WBC (Bld) 0.3 % 0-5 [facility] Glucose [Mass/Vol] 154 mg/dL 74-106 [facility] Comment on above: Fasting Glucose resu lt greater than or equal to 126 mg/dL suggests DIABETES MELLITUS per A.D.A. criteria. Neutrophils (Bld) [#/Vol] 5.3 10*3/uL 2.0-7.7 [facility] Neutrophils/100 WBC (Bld) 56.4 % 47-70 [facility] Potassium [Moles/Vol] 3.1 mmol/L 3.5-5.1 [facility] Protein [Mass/Vol] 7.1 g/dL 6.4-8.2 [facility] Sodium [Moles/Vol] 136 mmol/L 136-145 [facility] WBC (Bld) [#/Vol] 9.4 10*3/uL 4.4-11.0 [facility] Blood erythrocytes count (nu mber/volume)Ordered By: Lexus Villatoro on 01-15-2023 RBC (Bld) [#/Vol] 4.43 10*6/uL 4.2-5.4 [facility] Blood hemoglobin measurement (mass/volume)Ordered By: Lexus Villatoro on 01-15-2023 Hemoglobin (Bld) [Mass/Vol] 11.7 g/dL 12.0-15.0 [facility] Blood lymphocytes/100 leukoc ytesOrdered By: Lexus Villatoro on 01-15-2023 Lymphocytes/100 WBC (Bld) 34.2 % 19-41 [facility] Blood monocytes/100 leukocyt esOrdered By: Lexus Villatoro on 01-15-2023 Monocytes/100 WBC (Bld) 8.2 % 0-10 [facility] Blood platelet mean volumeOr dered By: Lexus Villatoro on 01-15-2023 Platelet mean volume (Bld) [Entitic vol] 9.3 fL 6.2-12.0 [facility] Determination of erythrocyte mean corpuscular volume (MCV)Ordered By: Lexus Villatoro on 01-15-2023 MCV (RBC) [Entitic vol] 80.4 fL 81-99 [facility] Glucose Glucometer (BldC) [M ass/Vol]Ordered By: Lexus Villatoro on 01-15-2023 Glucose [Mass/Vol] 247 mg/dL 74-106 [facility] Comment on above: MANAGEMENT OF PATIEN T CARE PER NURSING PROTOCOL Hematocrit Auto (Bld) [Volum e fraction]Ordered By: Lexus Villatoro on 01-15-2023 Hematocrit (Bld) [Volume fraction] 35.6 % 37-47 [facility] Laboratory - Chemistry and C hemistry - challengeOrdered By: Lexus Villatoro on 01-15-2023 ALP [Catalytic activity/Vol] 54 U/L 45-117 [facility] ALT [Catalytic activity/Vol] 14 U/L 13-56 [facility] CO2 [Moles/Vol] 26.0 mmol/L 21.0-32.0 [facility] Globulin (S) [Mass/Vol] 4.1 g/dL 2.2-4.2 [facility] Magnesium [Mass/Vol] 2.0 mg/dL 1.6-2.6 [facility] Urea nitrogen/Creatinine [Mass ratio] 6.6 mg/mg 10-20 [facility] Laboratory - Hematology and Cell countsOrdered By: Lexus Villatoro on 01-15-2023 Erythrocyte distribution width (RBC) [Entitic vol] 40.1 fL 35.1-43.9 [facility] Erythrocyte distribution width (RBC) [Ratio] 13.8 % 11.6-14.6 [facility] Immature granulocytes/100 WBC (Bld) 0.600 % 0.0-0.9 [facility] Comment on above: IG% - Immature Granu locytes (promyelocytes, myelocytes and metamyelocytes) > 1% indicates that a LEFT SHIFT is Present. MCH (RBC) [Entitic mass] 26.4 pg 27.0-32.0 [facility] Nucleated RBC/100 WBC (Bld) [Ratio] 0 % 0-5 [facility] MCHC Auto (RBC) [Mass/Vol]Or dered By: Lexus Villatoro on 01-15-2023 MCHC (RBC) [Mass/Vol] 32.9 g/dL 32-36 [facility] No Panel InformationOrdered By: Lexus Villatoro on 01-15-2023 Estimated Creatinine Clearance Calc 84.62 ml/min [facility] Estimated GFR (MDRD) Amer 93 mL/min >60 [facility] Comment on above: GFR Calc Estimated GFR (MDRD) Non-Af Amer 77 mL/min >60 [facility] Comment on above: Non- GFR Calc Thyroid Stimulating Hormone (TSH) 2.30 uIU/mL 0.358-3.74 [facility] 26.4 pg 27.0-32.0 [facility] 13.8 % 11.6-14.6 [facility] 40.1 fl 35.1-43.9 [facility] 0.600 % 0.0-0.9 [facility] 0 % 0-5 [facility] 77 mL/min >60 [facility] 93 mL/min >60 [facility] 84.62 ml/min [facility] 6.6 RATIO 10-20 [facility] 4.1 g/dL 2.2-4.2 [facility] 54 U/L 45-117 [facility] 14 U/L 13-56 [facility] 2.0 mg/dL 1.6-2.6 [facility] 26.0 mmol/L 21.0-32.0 [facility] 2.30 uIU/mL 0.358-3.74 [facility] Platelets bldOrdered By: Porsche Villatoro on 01-15-2023 Platelets (Bld) [#/Vol] 361 10*3/uL 150-450 [facility] Serum or plasma albumin hussein urement (mass/volume)Ordered By: Lexus Villatoro on 01-15-2023 Albumin [Mass/Vol] 3.0 g/dL 3.2-5.0 [facility] Serum or plasma albumin/glob ulin mass ratioOrdered By: Lexus Villatoro on 01-15-2023 Albumin/Globulin [Mass ratio] 0.7 {ratio} 0.9-2.4 [facility] Serum or plasma calcium hussein urement (mass/volume)Ordered By: Lexus Villatoro on 01-15-2023 Calcium [Mass/Vol] 8.2 mg/dL 8.5-10.1 [facility] Serum or plasma creatinine m easurement (mass/volume)Ordered By: Lexus Villatoro on 01-15-2023 Creatinine [Mass/Vol] 0.91 mg/dL 0.55-1.02 [facility] Comment on above: The validity of the calculated GFR & GFRAA in patients over 70 years has not been determined. Clinical correlation is essential. Serum or plasma urea nitroge n measurement (mass/volume)Ordered By: Lexus Villatoro on 01-15-2023 Urea nitrogen [Mass/Vol] 6 mg/dL 7-18 [facility] Thin prep Papanicolaou smear with manual screeningOrdered By: Lexus Villatoro on 01-15-2023 Thin prep Papanicolaou smear with manual screening 13 U/L 15-37 [facility] Thin prep Papanicolaou smear with manual screening 5 5-15 [facility] Bacteria identified Cx Nom ( U)Ordered By: Willie Dhillon on 01-14-2023 Culture, urine Positive [facility] Basophil percentageOrdered B y: Willie Dhillon on 01-14-2023 Basophil percentage 1.3 mmol/L 0.4-2.0 [facility] Lactate [Moles/Vol] 1.3 mmol/L 0.4-2.0 [facility] Basophil percentage 0-5 SEEN /hpf 0-[address] [facility] Beta hCG serum qualOrdered B y: Willie Dhillon on 01-14-2023 Beta HCG ( test) Ql Negative [facility] Bilirubin Test strip Ql (U)O rdered By: Willie Dhillon on 01-14-2023 Bilirubin Ql (U) Negative Negative [facility] Culture, urineOrdered By: Reji March on 01-14-2023 Bacteria identified Cx Nom (U) Positive [facility] Ketones Test strip Ql (U)Ord ered By: Willie Dhillon on 01-14-2023 Ketones Ql (U) 5 mg/dl Negative [facility] Laboratory - Drug toxicology Ordered By: Lexus Villatoro on 01-14-2023 Amphetamines Ql (U) Negative <1000 ng/mL [facility] Benzodiazepines Ql (U) Negative < 200 ng/mL [facility] Cannabinoids Screen Ql (U) Positive < 50 ng/mL [facility] Cocaine Ql (U) Negative < 300 ng/mL [facility] Opiates Ql (U) Negative < 300 ng/mL [facility] Mucus LM Ql (Urine sed)Order ed By: Willie Dhillon on 01-14-2023 Mucus Ql (Urine sed) 0 SEEN /hpf [facility] Nitrite Test strip Ql (U)Ord ered By: Willie Dhillon on 01-14-2023 Nitrite Ql (U) Negative Negative [facility] No Panel InformationOrdered By: Lexus Villatoro on 01-14-2023 MDMA (Ecstasy) Screen Negative < 500 ng/mL [facility] Urine Barbiturates Screen Negative < 200 ng/mL [facility] Urine Drug Screen Comment [facility] Comment on above: CONFIRMATORY TESTING FOR ALL POSITIVE URINE DRUG SCREENRESULTS WILL ONLY BE SENT OUT UPON PHYSICIAN ORDER. VISTA Urine Drug Screen methods provide only preliminaryanalytical test results. A more specific alternate chemicalmethod must be used in order to obtain a confirmedanalytical result. Gas chromatography/mass spectrometery(GC/MS) is the preferred confirmatory method. Clinicalconsideration and professional judgement should be appliedto any drug of abuse test result, particularly whenpreliminary positive results are used. URINE TCA TESTING MUST BE ORDERED SEPARATELY. USE TESTMNEMONIC: [facility] Urine Methadone Screen Negative < 300 ng/mL [facility] Negative < 300 ng/mL [facility] Positive < 50 ng/mL [facility] Protein Test strip Ql (U)Ord ered By: Willie Dhillon on 01-14-2023 Protein Ql (U) 15 mg/dl Negative [facility] Squamous epithelial cells de tection in urine sediment by light microscopyOrdered By: Willie Dhillon on 01-14-2023 Epithelial cells.squamous LM Ql (Urine sed) 0-5 SEEN /hpf 5-10 [facility] Urine blood detectionOrdered By: Willie Dhillon on 01-14-2023 RBC Ql (U) 10 /ul Negative [facility] RBC Ql (U) 0-5 SEEN /hpf 0-5 [facility] Urine clarityOrdered By: Heath Dhillon on 01-14-2023 Clarity (U) Clear Clear [facility] Urine color determinationOrd ered By: Willie Dhillon on 01-14-2023 Color (U) Yellow Yellow [facility] Urine glucose detectionOrder ed By: Willie Dhillon on 01-14-2023 Glucose Ql (U) 250 mg/dl Normal [facility] Urine leukocyte esterase det ection by dipstickOrdered By: Willie Dhillon on 01-14-2023 Leukocyte esterase Test strip Ql (U) 25 /ul Negative [facility] Urine pHOrdered By: Willie mo on 01-14-2023 pH (U) 8.0 [pH] 5.0 - 8.0 [facility] Urine phencyclidine (PCP) de tectionOrdered By: Lexus Villatoro on 01-14-2023 Phencyclidine Ql (U) Negative < 25 ng/mL [facility] Urine sediment bacteria coun t by microscopy (number/high power field)Ordered By: Willie Dhillon on 01-14-2023 Bacteria LM.HPF (Urine sed) [#/Area] RARE /hpf None Seen [facility] Urine specific gravity measu rementOrdered By: Willie Dhillon on 01-14-2023 Specific gravity (U) [Rel density] 1.015 1.002-1.030 [facility] Urobilinogen Auto test strip Ql (U)Ordered By: Willie Dhillon on 01-14-2023 Urobilinogen Ql (U) Normal mg/dl Normal [facility] Basophil percentageOrdered B y: Deann Guerrero on 01-13-2023 Basophil percentage 25-50 SEEN /hpf 0-5 [facility] Basophil percentage 235 mg/dL 74-106 [facility] Basophil percentage 137 mmol/L 136-145 [facility] Basophil percentage 3.2 mmol/L 3.5-5.1 [facility] Basophil percentage 107 mmol/L 98-107 [facility] Chloride [Moles/Vol] 107 mmol/L 98-107 [facility] Glucose [Mass/Vol] 235 mg/dL 74-106 [facility] Comment on above: Glucose result great er than or equal to 200 mg/dLsuggests DIABETES MELLITUS per A.D.A. criteria. Potassium [Moles/Vol] 3.2 mmol/L 3.5-5.1 [facility] Sodium [Moles/Vol] 137 mmol/L 136-145 [facility] Beta hCG serum qualOrdered B y: Deann Guerrero on 01-13-2023 Beta HCG ( test) Ql Negative [facility] Bilirubin Test strip Ql (U)O rdered By: Deann Guerrero on 01-13-2023 Bilirubin Ql (U) Negative Negative [facility] Ketones Test strip Ql (U)Ord ered By: Deann Guerrero on 01-13-2023 Ketones Ql (U) 15 mg/dl Negative [facility] Laboratory - Chemistry and C hemistry - challengeOrdered By: Deann Guerrero on 01-13-2023 CO2 [Moles/Vol] 23.0 mmol/L 21.0-32.0 [facility] Urea nitrogen/Creatinine [Mass ratio] 7.6 mg/mg 10-20 [facility] Mucus LM Ql (Urine sed)Order ed By: Deann Guerrero on 01-13-2023 Mucus Ql (Urine sed) 1+ /hpf [facility] Nitrite Test strip Ql (U)Ord ered By: Deann Guerrero on 01-13-2023 Nitrite Ql (U) Negative Negative [facility] No Panel InformationOrdered By: Deann Guerrero on 01-13-2023 Estimated Creatinine Clearance Calc 73.34 ml/min [facility] Estimated GFR (MDRD) Amer 79 mL/min >60 [facility] Comment on above: GFR Calc Estimated GFR (MDRD) Non-Af Amer 65 mL/min >60 [facility] Comment on above: Non- GFR Calc 65 mL/min >60 [facility] 79 mL/min >60 [facility] 73.34 ml/min [facility] 7.6 RATIO 10-20 [facility] 23.0 mmol/L 21.0-32.0 [facility] Protein Test strip Ql (U)Ord ered By: Deann Guerrero on 01-13-2023 Protein Ql (U) 30 mg/dl Negative [facility] Serum or plasma calcium hussein urement (mass/volume)Ordered By: Deann Guerrero on 01-13-2023 Calcium [Mass/Vol] 8.5 mg/dL 8.5-10.1 [facility] Serum or plasma creatinine m easurement (mass/volume)Ordered By: Deann Guerrero on 01-13-2023 Creatinine [Mass/Vol] 1.05 mg/dL 0.55-1.02 [facility] Comment on above: The validity of the calculated GFR & GFRAA in patients over 70 years has not been determined. Clinical correlation is essential. Serum or plasma urea nitroge n measurement (mass/volume)Ordered By: Deann Guerrero on 01-13-2023 Urea nitrogen [Mass/Vol] 8 mg/dL 7-18 [facility] Squamous epithelial cells de tection in urine sediment by light microscopyOrdered By: Deann Guerrero on 01-13-2023 Epithelial cells.squamous LM Ql (Urine sed) 5-10 SEEN /hpf 5-10 [facility] Thin prep Papanicolaou smear with manual screeningOrdered By: Deann Guerrero on 07-05-2023 Thin prep Papanicolaou smear with manual screening 7 5-15 [facility] Urine blood detectionOrdered By: Deann Guerrero on 01-13-2023 RBC Ql (U) 10 /ul Negative [facility] RBC Ql (U) 0-5 SEEN /hpf 0-5 [facility] Urine clarityOrdered By: Sulema Guerrero on 01-13-2023 Clarity (U) Sl. Cloudy Clear [facility] Urine color determinationOrd ered By: Deann Guerrero on 01-13-2023 Color (U) Yellow Yellow [facility] Urine glucose detectionOrder ed By: Deann Guerrero on 01-13-2023 Glucose Ql (U) 250 mg/dl Normal [facility] Urine leukocyte esterase det ection by dipstickOrdered By: Deann Guerrero on 01-13-2023 Leukocyte esterase Test strip Ql (U) 500 /ul Negative [facility] Urine pHOrdered By: Deann Guerrero on 01-13-2023 pH (U) 6.0 [pH] 5.0 - 8.0 [facility] Urine sediment bacteria coun t by microscopy (number/high power field)Ordered By: Deann Guerrero on 01-13-2023 Bacteria LM.HPF (Urine sed) [#/Area] 1 /[HPF] None Seen [facility] Urine specific gravity measu rementOrdered By: Deann Guerrero on 01-13-2023 Specific gravity (U) [Rel density] 1.020 1.002-1.030 [facility] Urobilinogen Auto test strip Ql (U)Ordered By: Deann Guerrero on 01-13-2023 Urobilinogen Ql (U) 1 mg/dl Normal [facility] Absolute lymphocyte countOrd ered By: Perico Norman on 01-12-2023 Lymphocytes Auto (Unsp spec) [#/Vol] 1.80 10*3/uL 0.83-4.51 [facility] Basophil percentageOrdered B y: Fabricio Guevara on 01-12-2023 Basophil percentage 208 mg/dL 74-106 [facility] Basophil percentage 137 mmol/L 136-145 [facility] Basophil percentage 3.0 mmol/L 3.5-5.1 [facility] Basophil percentage 105 mmol/L 98-107 [facility] Chloride [Moles/Vol] 105 mmol/L 98-107 [facility] Glucose [Mass/Vol] 208 mg/dL 74-106 [facility] Comment on above: Glucose result great er than or equal to 200 mg/dLsuggests DIABETES MELLITUS per A.D.A. criteria. Potassium [Moles/Vol] 3.0 mmol/L 3.5-5.1 [facility] Sodium [Moles/Vol] 137 mmol/L 136-145 [facility] Basophil percentageOrdered B y: Perico Norman on 01-12-2023 Basophil percentage 267 mg/dL 74-106 [facility] Basophil percentage 7.8 g/dL 6.4-8.2 [facility] Basophil percentage 0.40 mg/dL 0.20-1.00 [facility] Basophil percentage 134 mmol/L 136-145 [facility] Basophil percentage 3.4 mmol/L 3.5-5.1 [facility] Basophil percentage 101 mmol/L 98-107 [facility] Basophils (Bld) [#/Vol] 12.4 10*3/uL 4.4-11.0 [facility] Basophils (Bld) [#/Vol] 9.9 10*3/uL 2.0-7.7 [facility] Basophils/100 WBC (Bld) 0.3 % 0-1 [facility] Basophils/100 WBC (Bld) 79.6 % 47-70 [facility] Basophils/100 WBC (Bld) 0.0 % 0-5 [facility] Bilirubin [Mass/Vol] 0.40 mg/dL 0.20-1.00 [facility] Comment on above: For patients on eltr ombopag therapy, use of [employer] [facility] TBIL is not recommended. Chloride [Moles/Vol] 101 mmol/L 98-107 [facility] Eosinophils/100 WBC (Bld) 0.0 % 0-5 [facility] Glucose [Mass/Vol] 267 mg/dL 74-106 [facility] Comment on above: Glucose result great er than or equal to 200 mg/dLsuggests DIABETES MELLITUS per A.D.A. criteria. Neutrophils (Bld) [#/Vol] 9.9 10*3/uL 2.0-7.7 [facility] Neutrophils/100 WBC (Bld) 79.6 % 47-70 [facility] Potassium [Moles/Vol] 3.4 mmol/L 3.5-5.1 [facility] Protein [Mass/Vol] 7.8 g/dL 6.4-8.2 [facility] Sodium [Moles/Vol] 134 mmol/L 136-145 [facility] WBC (Bld) [#/Vol] 12.4 10*3/uL 4.4-11.0 [facility] Blood erythrocytes count (nu mber/volume)Ordered By: Perico Norman on 01-12-2023 RBC (Bld) [#/Vol] 4.62 10*6/uL 4.2-5.4 [facility] Blood hemoglobin measurement (mass/volume)Ordered By: Perico Norman on 01-12-2023 Hemoglobin (Bld) [Mass/Vol] 12.1 g/dL 12.0-15.0 [facility] Blood lymphocytes/100 leukoc ytesOrdered By: Perico Norman on 01-12-2023 Lymphocytes/100 WBC (Bld) 14.5 % 19-41 [facility] Blood monocytes/100 leukocyt esOrdered By: Perico Norman on 01-12-2023 Monocytes/100 WBC (Bld) 5.0 % 0-10 [facility] Blood platelet mean volumeOr dered By: Perico Norman on 01-12-2023 Platelet mean volume (Bld) [Entitic vol] 9.0 fL 6.2-12.0 [facility] Determination of erythrocyte mean corpuscular volume (MCV)Ordered By: Perico Norman on 01-12-2023 MCV (RBC) [Entitic vol] 81.0 fL 81-99 [facility] Direct bilirubinOrdered By: Perico Norman on 01-12-2023 Bilirubin.direct [Mass/Vol] 0.14 mg/dL 0.00-0.30 [facility] Hematocrit Auto (Bld) [Volum e fraction]Ordered By: Perico Norman on 01-12-2023 Hematocrit (Bld) [Volume fraction] 37.4 % 37-47 [facility] Laboratory - Chemistry and C hemistry - challengeOrdered By: Fabricio Guevara on 01-12-2023 CO2 [Moles/Vol] 26.0 mmol/L 21.0-32.0 [facility] Urea nitrogen/Creatinine [Mass ratio] 7.0 mg/mg 10- [facility] Laboratory - Chemistry and C hemistry - challengeOrdered By: Perico Norman on 01-12-2023 ALP [Catalytic activity/Vol] 68 U/L 45-117 [facility] ALT [Catalytic activity/Vol] 14 U/L 13-56 [facility] CO2 [Moles/Vol] 24.0 mmol/L 21.0-32.0 [facility] Globulin (S) [Mass/Vol] 4.5 g/dL 2.2-4.2 [facility] Lipase [Catalytic activity/Vol] 37 U/L 13-75 [facility] Comment on above: Please note:LIPASE r evised reference range effective 22. New Lipase methodology. Expected to produce lower values than the previous assay method. NEW Reference Range: 13 - 75 U/L Urea nitrogen/Creatinine [Mass ratio] 9.7 mg/mg 10-20 [facility] Laboratory - Hematology and Cell countsOrdered By: Perico Norman on 01-12-2023 Erythrocyte distribution width (RBC) [Entitic vol] 38.9 fL 35.1-43.9 [facility] Erythrocyte distribution width (RBC) [Ratio] 13.7 % 11.6-14.6 [facility] Immature granulocytes/100 WBC (Bld) 0.600 % 0.0-0.9 [facility] Comment on above: IG% - Immature Granu locytes (promyelocytes, myelocytes and metamyelocytes) > 1% indicates that a LEFT SHIFT is Present. MCH (RBC) [Entitic mass] 26.2 pg 27.0-32.0 [facility] Nucleated RBC/100 WBC (Bld) [Ratio] 0 % 0-5 [facility] MCHC Auto (RBC) [Mass/Vol]Or dered By: Perico Norman on 01-12-2023 MCHC (RBC) [Mass/Vol] 32.4 g/dL 32-36 [facility] No Panel InformationOrdered By: Fabricio Guevara on 01-12-2023 Estimated Creatinine Clearance Calc 77.01 ml/min [facility] Estimated GFR (MDRD) Amer 84 mL/min >60 [facility] Comment on above: GFR Calc Estimated GFR (MDRD) Non-Af Amer 69 mL/min >60 [facility] Comment on above: Non- GFR Calc 69 mL/min >60 [facility] 84 mL/min >60 [facility] 77.01 ml/min [facility] 7.0 RATIO 10-20 [facility] 26.0 mmol/L 21.0-32.0 [facility] No Panel InformationOrdered By: Perico Norman on 01-12-2023 Estimated Creatinine Clearance Calc 68.15 ml/min [facility] Estimated GFR (MDRD) Amer 72 mL/min >60 [facility] Comment on above: GFR Calc Estimated GFR (MDRD) Non-Af Amer 60 mL/min >60 [facility] Comment on above: Non- GFR Calc 26.2 pg 27.0-32.0 [facility] 13.7 % 11.6-14.6 [facility] 38.9 fl 35.1-43.9 [facility] 0.600 % 0.0-0.9 [facility] 0 % 0-5 [facility] 60 mL/min >60 [facility] 72 mL/min >60 [facility] 68.15 ml/min [facility] 9.7 RATIO 10-20 [facility] 4.5 g/dL 2.2-4.2 [facility] 37 U/L 13-75 [facility] 68 U/L 45-117 [facility] 14 U/L 13-56 [facility] 24.0 mmol/L 21.0-32.0 [facility] Platelets bldOrdered By: Bakari Norman on 01-12-2023 Platelets (Bld) [#/Vol] 352 10*3/uL 150-450 [facility] Serum or plasma albumin hussein urement (mass/volume)Ordered By: Perico Norman on 01-12-2023 Albumin [Mass/Vol] 3.3 g/dL 3.2-5.0 [facility] Serum or plasma calcium hussein urement (mass/volume)Ordered By: Fabricio Guevara on 01-12-2023 Calcium [Mass/Vol] 8.7 mg/dL 8.5-10.1 [facility] Serum or plasma calcium hussein urement (mass/volume)Ordered By: Perico Norman on 01-12-2023 Calcium [Mass/Vol] 9.0 mg/dL 8.5-10.1 [facility] Serum or plasma creatinine m easurement (mass/volume)Ordered By: Fabricio Guevara on 01-12-2023 Creatinine [Mass/Vol] 1.00 mg/dL 0.55-1.02 [facility] Comment on above: The validity of the calculated GFR & GFRAA in patients over 70 years has not been determined. Clinical correlation is essential. Serum or plasma creatinine m easurement (mass/volume)Ordered By: Perico Norman on 01-12-2023 Creatinine [Mass/Vol] 1.13 mg/dL 0.55-1.02 [facility] Comment on above: The validity of the calculated GFR & GFRAA in patients over 70 years has not been determined. Clinical correlation is essential. Serum or plasma urea nitroge n measurement (mass/volume)Ordered By: Fabricio Guevara on 01-12-2023 Urea nitrogen [Mass/Vol] 7 mg/dL 01-26 [facility] Serum or plasma urea nitroge n measurement (mass/volume)Ordered By: Perico Norman on 01-12-2023 Urea nitrogen [Mass/Vol] 11 mg/dL 01-26 [facility] Thin prep Papanicolaou smear with manual screeningOrdered By: Fabricio Guevara on 01-12-2023 Thin prep Papanicolaou smear with manual screening 6 11-23 [facility] Thin prep Papanicolaou smear with manual screeningOrdered By: Perico Norman on 01-12-2023 Thin prep Papanicolaou smear with manual screening 12 U/L 15-37 [facility] Thin prep Papanicolaou smear with manual screening 9 - [facility] .Auto Diffon 01-10-2023 Basophil, Absolute 0.0 10 3/mcL Normal 0.0-0.2 [facility] [place] ([place]) Comment on above: Performed By: #### A DIFF, GFR, MDW, CMP, ANEU, CBC, LIP #### [address] [address] Basophils/100 WBC (Bld) 0.2 % Normal 0.0-2.5 A [facility] ([place]) Comment on above: Performed By: #### A DIFF, GFR, MDW, CMP, ANEU, CBC, LIP #### [address] [address] Eosinophil, Absolute 0.0 10 3/mcL Normal 0.0-0.4 [facility] ([place]) Comment on above: Performed By: #### A DIFF, GFR, MDW, CMP, ANEU, CBC, LIP #### [address] [address] Eosinophils/100 WBC (Bld) 0.1 % Normal 0.0-7.0 [facility] ([place]) Comment on above: Performed By: #### A DIFF, GFR, MDW, CMP, ANEU, CBC, LIP #### [address] [address] Lymphocyte, Absolute 2.7 10 3/mcL Normal 0.8-3.9 [facility] ([place]) Comment on above: Performed By: #### A DIFF, GFR, MDW, CMP, ANEU, CBC, LIP #### [address] [address] Lymphocytes/100 WBC (Bld) 17.3 % Normal 10.0-50.0 [facility] ([place]) Comment on above: Performed By: #### A DIFF, GFR, MDW, CMP, ANEU, CBC, LIP #### [address] [address] Monocyte, Absolute 0.9 10 3/mcL Normal 0.2-1.0 [facility] ([place]) Comment on above: Performed By: #### A DIFF, GFR, MDW, CMP, ANEU, CBC, LIP #### [address] [address] Monocytes/100 WBC (Bld) 5.7 % Normal 1.7-13.0 A [facility] ([place]) Comment on above: Performed By: #### A DIFF, GFR, MDW, CMP, ANEU, CBC, LIP #### [address] [address] Neutrophils/100 WBC (Bld) 76.7 % Normal 37.0-80.0 [facility] ([place]) Comment on above: Performed By: #### A DIFF, GFR, MDW, CMP, ANEU, CBC, LIP #### [address] [address] .GFRon 01-10-2023 GFR 64 ml/min/1.73sqm Normal [facility] ([place]) Comment on above: Result Comment: GFR Population mean for , Non- Americans Ages 20-29 = 116 mL/min/1.73 sq.m. Ages 30-39 = 107 mL/min/1.73 sq.m. Ages 40-49 = 99 mL/min/1.73 sq.m. Ages 50-59 = 93 mL/min/1.73 sq.m. Ages 60-69 = 85 mL/min/1.73 sq.m. Ages 70+ = 75 mL/min/1.73 sq.m. Chronic Kidney Disease: Less than 60 mL/min/1.73 square meters End Stage Renal Disease: Less than 15 mL/min/1.73 square meters Performed By: #### A DIFF, GFR, MDW, CMP, ANEU, CBC, LIP #### [address] [address] GFR Non- 53 ml/min/1.73sqm Normal [facility] ([place]) Comment on above: Result Comment: GFR Population mean for , Non- Americans Ages 20-29 = 116 mL/min/1.73 sq.m. Ages 30-39 = 107 mL/min/1.73 sq.m. Ages 40-49 = 99 mL/min/1.73 sq.m. Ages 50-59 = 93 mL/min/1.73 sq.m. Ages 60-69 = 85 mL/min/1.73 sq.m. Ages 70+ = 75 mL/min/1.73 sq.m. Chronic Kidney Disease: Less than 60 mL/min/1.73 square meters End Stage Renal Disease: Less than 15 mL/min/1.73 square meters Performed By: #### A DIFF, GFR, MDW, CMP, ANEU, CBC, LIP #### [place] [address] .MDWon 01-10-2023 Monocyte Distribution Width 14.44 Normal 0.00-20.00 [facility] ([place]) Comment on above: Result Comment: For ED adult patients suspected of sepsis, MDW<=20.0 does not rule out sepsis or risk of sepsis Performed By: #### A DIFF, GFR, MDW, CMP, ANEU, CBC, LIP #### [place] [address] .NEUABSon 01-10-2023 Neutrophil, Absolute 11.9 10 3/mcL High 2.9-6.2 A [facility] ([place]) Comment on above: Performed By: #### A DIFF, GFR, MDW, CMP, ANEU, CBC, LIP #### [place] [address] .Urinalysis Microscopic (AO) on 01-10-2023 UA Bacteria Trace Abnormal [facility] ([place]) Comment on above: Performed By: #### A DIFF, GFR, MDW, CMP, ANEU, CBC, LIP #### [place] [address] UA RBC 0-5 Abnormal None Seen [facility] ([place]) Comment on above: Performed By: #### A DIFF, GFR, MDW, CMP, ANEU, CBC, LIP #### [address] [address] UA Squam Epithelial LOADED Abnormal None Seen [facility] ([place]) Comment on above: Performed By: #### A DIFF, GFR, MDW, CMP, ANEU, CBC, LIP #### [place] [address] UA WBC 0-5 Abnormal None Seen [facility] ([place] Comment on above: Performed By: #### A DIFF, GFR, MDW, CMP, ANEU, CBC, LIP #### [address] [address] UA Yeast Trace Abnormal [facility] ([place]) Comment on above: Performed By: #### A DIFF, GFR, MDW, CMP, ANEU, CBC, LIP #### [address] [address] CBCon 01-10-2023 Erythrocyte distribution width (RBC) [Ratio] 14.7 % High 11.5-14.5 [facility] ([place]) Comment on above: Performed By: #### A DIFF, GFR, MDW, CMP, ANEU, CBC, LIP #### [place] [address] Hematocrit (Bld) [Volume fraction] 38.7 % Normal 37.0-47.0 [facility] ([place]) Comment on above: Performed By: #### A DIFF, GFR, MDW, CMP, ANEU, CBC, LIP #### [place] [address] Hgb 12.9 G/dL Normal 12.0-16.0 [facility] ([place] Comment on above: Performed By: #### A DIFF, GFR, MDW, CMP, ANEU, CBC, LIP #### [address] [address] MCH (RBC) [Entitic mass] 25.7 pg Low 27.0-31.2 [facility] ([place] Comment on above: Performed By: #### A DIFF, GFR, MDW, CMP, ANEU, CBC, LIP #### [address] [address] MCHC 33.3 G/dL Normal 33.0-37.0 [facility] ([place] Comment on above: Performed By: #### A DIFF, GFR, MDW, CMP, ANEU, CBC, LIP #### [address] [address] MCV (RBC) [Entitic vol] 77.4 fL Low 80.0-94.0 A [facility] ([place]) Comment on above: Performed By: #### A DIFF, GFR, MDW, CMP, ANEU, CBC, LIP #### [address] [address] Platelet 438 10 3/mcL High 130-400 [facility] ([place]) Comment on above: Performed By: #### A DIFF, GFR, MDW, CMP, ANEU, CBC, LIP #### [address] [address] Platelet mean volume (Bld) [Entitic vol] 7.2 fL Low 7.4-10.4 [facility] ([place] Comment on above: Performed By: #### A DIFF, GFR, MDW, CMP, ANEU, CBC, LIP #### [address] [address] RBC 5.01 10 6/mcL Normal 4.20-5.40 [facility] ([place]) Comment on above: Performed By: #### A DIFF, GFR, MDW, CMP, ANEU, CBC, LIP #### [address] [address] WBC 15.5 10 3/mcL High 4.6-10.8 [facility] ([place]) Comment on above: Performed By: #### A DIFF, GFR, MDW, CMP, ANEU, CBC, LIP #### [address] [address] CMPon 01-10-2023 Albumin Level 3.9 G/dL Normal 3.5-5.0 [facility] ([place]) Comment on above: Performed By: #### A DIFF, GFR, MDW, CMP, ANEU, CBC, LIP #### [address] [address] Albumin/Globulin [Mass ratio] 0.9 {ratio} Low 1.1-2.5 [facility] ([place]) Comment on above: Performed By: #### A DIFF, GFR, MDW, CMP, ANEU, CBC, LIP #### [address] [address] ALP [Catalytic activity/Vol] 84 U/L Normal 40-135 [facility] ([place]) Comment on above: Performed By: #### A DIFF, GFR, MDW, CMP, ANEU, CBC, LIP #### [address] [address] ALT [Catalytic activity/Vol] 17 U/L Normal 14-59 [facility] ([place]) Comment on above: Performed By: #### A DIFF, GFR, MDW, CMP, ANEU, CBC, LIP #### [address] [address] AST [Catalytic activity/Vol] 13 U/L Normal 10-40 [facility] ([place]) Comment on above: Performed By: #### A DIFF, GFR, MDW, CMP, ANEU, CBC, LIP #### [address] [address] Bili Total 0.6 mg/dL Normal 0.2-1.0 [facility] ([place]) Comment on above: Result Comment: Use of this assay is not recommended for patients undergoing treatment with eltrombopag due to the potential for falsely elevated results. Performed By: #### A DIFF, GFR, MDW, CMP, ANEU, CBC, LIP #### [address] [address] BUN/Creatinine Ratio 11 ratio Normal 7-27 [facility] ([place]) Comment on above: Performed By: #### A DIFF, GFR, MDW, CMP, ANEU, CBC, LIP #### [address] [address] Calcium [Mass/Vol] 9.4 mg/dL Normal 8.4-10.2 [facility] ([place]) Comment on above: Performed By: #### A DIFF, GFR, MDW, CMP, ANEU, CBC, LIP #### [address] [address] Chloride [Moles/Vol] 99 mmol/L Normal 98-107 [facility] ([place]) Comment on above: Performed By: #### A DIFF, GFR, MDW, CMP, ANEU, CBC, LIP #### [address] [address] CO2 [Moles/Vol] 22 mmol/L Normal 22-29 [facility] ([place]) Comment on above: Performed By: #### A DIFF, GFR, MDW, CMP, ANEU, CBC, LIP #### [address] [address] Creatinine [Mass/Vol] 1.20 mg/dL High 0.55-1.02 [facility] ([place]) Comment on above: Performed By: #### A DIFF, GFR, MDW, CMP, ANEU, CBC, LIP #### [address] [address] Electrolyte Balance 17.0 mEq/L High 4.0-15.0 [facility] ([place]) Comment on above: Performed By: #### A DIFF, GFR, MDW, CMP, ANEU, CBC, LIP #### [address] [address] Globulin 4.4 G/dL Normal [facility] ([place]) Comment on above: Performed By: #### A DIFF, GFR, MDW, CMP, ANEU, CBC, LIP #### [address] [address] Glucose [Mass/Vol] 270 mg/dL High 70-105 [facility] ([place]) Comment on above: Performed By: #### A DIFF, GFR, MDW, CMP, ANEU, CBC, LIP #### [address] [address] Potassium [Moles/Vol] 3.4 mmol/L Low 3.5-5.1 [facility] ([place]) Comment on above: Performed By: #### A DIFF, GFR, MDW, CMP, ANEU, CBC, LIP #### [address] [address] Sodium [Moles/Vol] 138 mmol/L Normal 136-145 [facility] ([place]) Comment on above: Performed By: #### A DIFF, GFR, MDW, CMP, ANEU, CBC, LIP #### [address] [address] Total Protein 8.3 G/dL High 6.4-8.2 [facility] ([place]) Comment on above: Performed By: #### A DIFF, GFR, MDW, CMP, ANEU, CBC, LIP #### [place] [address] [place], [place] [address] Urea nitrogen [Mass/Vol] 13 mg/dL Normal 7-18 [facility] ([place]) Comment on above: Performed By: #### A DIFF, GFR, MDW, CMP, ANEU, CBC, LIP #### [place] [address] [place], [place] [address] CT ABD/PELVIS W/ IV CONTRAST ONLYon 01-10-2023 CT ABD/PELVIS W/ IV CONTRAST ONLY ORIGINAL EXAMINATION: CT OF THE ABDOMEN AND PELVIS WITH CONTRAST 01/10/2023 3:43 pm TECHNIQUE: CT of the abdomen and pelvis was performed with the administration of intravenous contrast. Multiplanar reformatted images are provided for review. Automated exposure control, iterative reconstruction, and/or weight based adjustment of the mA/kV was utilized to reduce the radiation dose to as low as reasonably achievable. COMPARISON: None. HISTORY: ORDERING SYSTEM PROVIDED HISTORY: Reason for Exam: abdominal pain FINDINGS: The heart is normal in size. No pericardial thickening or effusion. Scattered atelectasis. The aorta is nonaneurysmal. More than expected khurram hepatis, aortocaval and duodenum caval adenopathy. Prominent iliac chain adenopathy, greater on the right. These are nonspecific. The gallbladder, spleen, pancreas, and bilateral adrenal glands are unremarkable. The liver is borderline enlarged. The common bile duct appears to be mildly dilated. The kidneys are symmetric in size and attenuation. No hydronephrosis or renal calculi. The bladder is unremarkable. The uterus is unremarkable. Hydrosalpinx is noted on the left. Simple appearing left adnexal cysts measuring approximately 2.5 cm. No pneumoperitoneum or free fluid. The large and small bowel are normal in caliber. The appendix is unremarkable. Small sclerotic foci in the right iliac bone and left femoral proximal shaft, likely bone islands. No acute osseous abnormalities. IMPRESSION: Left hydrosalpinx and could possibly represent an infectious etiology. Follow-up ultrasound is advised. Mildly dilated common bile duct with adjacent more than expected khurram hepatis adenopathy which may be reactive. Follow-up right upper quadrant ultrasound is advised for further evaluation. I have personally reviewed the images of this examination and agree with the resident's findings and interpretation. Interpreted by: Krishna Ramírez MD Preliminary Report By: Josh West Electronically signed By Krishna Ramírez MD Dictated Date: 01/10/2023 4:35:53 PM Prelim Date: 01/10/2023 4:57:49 PM Sign Date: 01/10/2023 4:59:31 PM Ordering Provider: ESSIE DOWNS [facility] ([place]) LABORATORYOrdered By: SYSTEM SYSTEM on 01-10-2023 Albumin BCP dye [Mass/Vol] 3.9 G/dL Invalid Interpretation Code 3.5 - 5.0 G/dL AO ADM SS Albumin/Globulin [Mass ratio] 0.9 {ratio} Invalid Interpretation Code 1.1 - 2.5 ratio AO ADM SS ALP [Catalytic activity/Vol] 84 U/L Invalid Interpretation Code 40 - 135 U/L AO ADM SS ALT With P-5'-P [Catalytic activity/Vol] 17 U/L Invalid Interpretation Code 14 - 59 U/L AO ADM SS AST With P-5'-P [Catalytic activity/Vol] 13 U/L Invalid Interpretation Code 10 - 40 U/L AO ADM SS Basophil, Absolute 0.0 103/mcL Invalid Interpretation Code 0.0 - 0.2 10^3/mcL AO Workflow SS Basophils/100 WBC (Bld) 0.2 % Invalid Interpretation Code 0.0 - 2.5 % AO Workflow SS Bilirubin [Mass/Vol] 0.6 mg/dL Invalid Interpretation Code 0.2 - 1.0 mg/dL AO ADM SS Calcium [Mass/Vol] 9.4 mg/dL Invalid Interpretation Code 8.4 - 10.2 mg/dL AO ADM SS Chloride [Moles/Vol] 99 mmol/L Invalid Interpretation Code 98 - 107 mmol/L AO ADM SS CO2 [Moles/Vol] 22 mmol/L Invalid Interpretation Code 22 - 29 mmol/L AO ADM SS Creatinine [Mass/Vol] 1.20 mg/dL Invalid Interpretation Code 0.55 - 1.02 mg/dL AO ADM SS Electrolyte Balance 17.0 mEq/L Invalid Interpretation Code 4.0 - 15.0 mEq/L AO ADM SS Eosinophil, Absolute 0.0 103/mcL Invalid Interpretation Code 0.0 - 0.4 10^3/mcL AO Workflow SS Eosinophils/100 WBC (Bld) 0.1 % Invalid Interpretation Code 0.0 - 7.0 % AO Workflow SS Erythrocyte distribution width (RBC) [Ratio] 14.7 % Invalid Interpretation Code 11.5 - 14.5 % AO Workflow SS GFR/1.73 sq M.predicted among blacks MDRD (S/P/Bld) [Vol rate/Area] 64 ml/min/1.73sqm Invalid Interpretation Code AO Chemistry S GFR/1.73 sq M.predicted among non-blacks MDRD (S/P/Bld) [Vol rate/Area] 53 ml/min/1.73sqm Invalid Interpretation Code AO Chemistry S Globulin 4.4 G/dL Invalid Interpretation Code AO ADM SS Glucose [Mass/Vol] 270 mg/dL Invalid Interpretation Code 70 - 105 mg/dL AO ADM SS Hematocrit (Bld) [Volume fraction] 38.7 % Invalid Interpretation Code 37.0 - 47.0 % AO Workflow SS Hemoglobin (Bld) [Mass/Vol] 12.9 G/dL Invalid Interpretation Code 12.0 - 16.0 G/dL AO Workflow SS Lipase [Catalytic activity/Vol] 39 U/L Invalid Interpretation Code 16 - 77 U/L AO ADM SS Lymphocyte, Absolute 2.7 103/mcL Invalid Interpretation Code 0.8 - 3.9 10^3/mcL AO Workflow SS Lymphocytes/100 WBC (Bld) 17.3 % Invalid Interpretation Code 10.0 - 50.0 % AO Workflow SS MCH (RBC) [Entitic mass] 25.7 pg Invalid Interpretation Code 27.0 - 31.2 pg AO Workflow SS MCHC 33.3 G/dL Invalid Interpretation Code 33.0 - 37.0 G/dL AO Workflow SS MCV (RBC) [Entitic vol] 77.4 fL Invalid Interpretation Code 80.0 - 94.0 fL AO Workflow SS Monocyte distribution width Auto (Bld) [Entitic vol] 14.44 Invalid Interpretation Code 0.00 - 20.00 AO Workflow SS Comment on above: Result Comment: For ED adult patients suspected of sepsis, MDW<=20.0 does not rule out sepsis or risk of sepsis Monocyte, Absolute 0.9 103/mcL Invalid Interpretation Code 0.2 - 1.0 10^3/mcL AO Workflow SS Monocytes/100 WBC (Bld) 5.7 % Invalid Interpretation Code 1.7 - 13.0 % AO Workflow SS Neutrophil, Absolute 11.9 103/mcL Invalid Interpretation Code 2.9 - 6.2 10^3/mcL AO Workflow SS Neutrophils/100 WBC (Bld) 76.7 % Invalid Interpretation Code 37.0 - 80.0 % AO Workflow SS Platelet mean volume (Bld) [Entitic vol] 7.2 fL Invalid Interpretation Code 7.4 - 10.4 fL AO Workflow SS Platelets (Bld) [#/Vol] 438 103/mcL Invalid Interpretation Code 130 - 400 10^3/mcL AO Workflow SS Potassium [Moles/Vol] 3.4 mmol/L Invalid Interpretation Code 3.5 - 5.1 mmol/L AO ADM SS Protein [Mass/Vol] 8.3 G/dL Invalid Interpretation Code 6.4 - 8.2 G/dL AO ADM SS RBC (Bld) [#/Vol] 5.01 106/mcL Invalid Interpretation Code 4.20 - 5.40 10^6/mcL AO Workflow SS Sodium [Moles/Vol] 138 mmol/L Invalid Interpretation Code 136 - 145 mmol/L AO ADM SS Urea nitrogen [Mass/Vol] 13 mg/dL Invalid Interpretation Code 7 - 18 mg/dL AO ADM SS Urea nitrogen/Creatinine [Mass ratio] 11 ratio Invalid Interpretation Code 7 - 27 ratio AO ADM SS WBC (Bld) [#/Vol] 15.5 103/mcL Invalid Interpretation Code 4.6 - 10.8 10^3/mcL AO Workflow SS LABORATORYOrdered By: Eric Ordaz on 01-10-2023 Appearance (U) Slightly Cloudy *ABN* (01/10/23 2:11 PM) Invalid Interpretation Code Clear AO Auto Urine SS Bacteria LM.HPF (Urine sed) [#/Area] Trace /HPF Invalid Interpretation Code AO Auto Urine SS Bilirubin Ql (U) Negative (01/10/23 2:11 PM) Invalid Interpretation Code Negative AO Auto Urine SS Color (U) Yellow (01/10/23 2:11 PM) Invalid Interpretation Code AO Auto Urine SS Glucose Test strip (U) [Mass/Vol] 500 mg/dL Invalid Interpretation Code Negativemg/ dL AO Auto Urine SS HCG ( test) Ql Negative (01/10/23 2:11 PM) Invalid Interpretation Code AO Manual Urine SS Hemoglobin Auto test strip (U) [Mass/Vol] Negative (01/10/23 2:11 PM) Invalid Interpretation Code Negative AO Auto Urine SS Ketones Ql (U) >=160 mg/dL Invalid Interpretation Code Negativemg/ dL AO Auto Urine SS test (u) int Not detected Invalid Interpretation Code AO Manual Urine SS UA Leuk Est Negative (01/10/23 2:11 PM) Invalid Interpretation Code Negative AO Auto Urine SS UA Nitrite Negative (01/10/23 2:11 PM) Invalid Interpretation Code Negative AO Auto Urine SS UA pH 8.5 *ABN* (01/10/23 2:11 PM) Invalid Interpretation Code 5.0 - 8.0 AO Auto Urine SS UA Protein 100 mg/dL Invalid Interpretation Code Negativemg/ dL AO Auto Urine SS UA RBC 0-5 /HPF Invalid Interpretation Code None Seen/HPF AO Auto Urine SS UA Spec Grav 1.020 (01/10/23 2:11 PM) Invalid Interpretation Code 1.015-1.025 AO Auto Urine SS UA Specimen Type Clean Catch (01/10/23 2:11 PM) Invalid Interpretation Code AO Auto Urine SS UA Squam Epithelial LOADED /HPF Invalid Interpretation Code None Seen/HPF AO Auto Urine SS UA Urobilinogen 0.2 E.U./dL Invalid Interpretation Code 0.2-1.0E.U. /dL AO Auto Urine SS WBC LM.HPF (Urine sed) [#/Area] 0-5 /HPF Invalid Interpretation Code None Seen/HPF AO Auto Urine SS Yeast LM.HPF (Urine sed) [#/Area] Trace /HPF Invalid Interpretation Code AO Auto Urine SS LIPon 01-10-2023 Lipase Level 39 U/L Normal 16-77 [facility] ([place]) Comment on above: Performed By: #### A DIFF, GFR, MDW, CMP, ANEU, CBC, LIP #### [address] [address] PREGUon 01-10-2023 HCG ( test) Ql (U) Negative Normal [facility] ([place]) Comment on above: Performed By: #### A DIFF, GFR, MDW, CMP, ANEU, CBC, LIP #### [place] [address] [place], [place] [address] test (u) int Not detected Invalid Interpretation Code [facility] ([place]) Comment on above: Performed By: #### A DIFF, GFR, MDW, CMP, ANEU, CBC, LIP #### [address] [address] UAon 01-10-2023 Color (U) Yellow Normal [facility] ([place]) Comment on above: Performed By: #### A DIFF, GFR, MDW, CMP, ANEU, CBC, LIP #### [place] [address] Glucose (U) [Mass/Vol] 500 mg/dL Abnormal Negative [facility] ([place]) Comment on above: Performed By: #### A DIFF, GFR, MDW, CMP, ANEU, CBC, LIP #### [address] [address] Ketones Ql (U) >=160 Abnormal Negative [facility] ([place]) Comment on above: Performed By: #### A DIFF, GFR, MDW, CMP, ANEU, CBC, LIP #### [address] [address] UA Appear Slightly Cloudy Abnormal Clear [facility] ([place]) Comment on above: Performed By: #### A DIFF, GFR, MDW, CMP, ANEU, CBC, LIP #### [address] [address] UA Blood Negative Normal Negative [facility] ([place]) Comment on above: Performed By: #### A DIFF, GFR, MDW, CMP, ANEU, CBC, LIP #### [address] [address] UA Leuk Est Negative Normal Negative [facility] ([place]) Comment on above: Performed By: #### A DIFF, GFR, MDW, CMP, ANEU, CBC, LIP #### [address] [address] UA Nitrite Negative Normal Negative [facility] ([place]) Comment on above: Performed By: #### A DIFF, GFR, MDW, CMP, ANEU, CBC, LIP #### [address] [address] UA pH 8.5 Abnormal 5.0 - 8.0 [facility] ([place]) Comment on above: Performed By: #### A DIFF, GFR, MDW, CMP, ANEU, CBC, LIP #### [place] [address] [place], [place] [address] UA Protein 100 mg/dL Abnormal Negative [facility] ([place]) Comment on above: Performed By: #### A DIFF, GFR, MDW, CMP, ANEU, CBC, LIP #### [address] [address] UA Spec Grav 1.020 Normal 1.015-1.025 [facility] ([place]) Comment on above: Performed By: #### A DIFF, GFR, MDW, CMP, ANEU, CBC, LIP #### [place] [address] [place], [place] [address] UA Specimen Type Clean Catch Normal [facility] ([place]) Comment on above: Performed By: #### A DIFF, GFR, MDW, CMP, ANEU, CBC, LIP #### [address] [address] UA Urobilinogen 0.2 E.U./dL Normal 0.2-1.0 [facility] ([place]) Comment on above: Performed By: #### A DIFF, GFR, MDW, CMP, ANEU, CBC, LIP #### [address] [address] Urobilinogen (U) [Mass/Vol] Negative Normal Negative [facility] ([place]) Comment on above: Performed By: #### A DIFF, GFR, MDW, CMP, ANEU, CBC, LIP #### [address] [address] Absolute lymphocyte countOrd ered By: Carlos Calvo on 01-09-2023 Lymphocytes Auto (Unsp spec) [#/Vol] 2.47 10*3/uL 0.83-4.51 [facility] Basophil percentageOrdered B y: Carlos Calvo on 01-09-2023 Basophil percentage 0 SEEN /hpf 0-5 [facility] Basophil percentage 247 mg/dL 74-106 [facility] Basophil percentage 8.7 g/dL 6.4-8.2 [facility] Basophil percentage 0.60 mg/dL 0.20-1.00 [facility] Basophil percentage 134 mmol/L 136-145 [facility] Basophil percentage 4.0 mmol/L 3.5-5.1 [facility] Basophil percentage 101 mmol/L 98-107 [facility] Basophils (Bld) [#/Vol] 10.7 10*3/uL 4.4-11.0 [facility] Basophils (Bld) [#/Vol] 7.6 10*3/uL 2.0-7.7 [facility] Basophils/100 WBC (Bld) 0.5 % 0-1 [facility] Basophils/100 WBC (Bld) 70.5 % 47-70 [facility] Basophils/100 WBC (Bld) 0.2 % 0-5 [facility] Bilirubin [Mass/Vol] 0.60 mg/dL 0.20-1.00 [facility] Comment on above: For patients on eltr ombopag therapy, use of [employer] [facility] TBIL is not recommended. Chloride [Moles/Vol] 101 mmol/L 98-107 [facility] Eosinophils/100 WBC (Bld) 0.2 % 0-5 [facility] Glucose [Mass/Vol] 247 mg/dL 74-106 [facility] Comment on above: Glucose result great er than or equal to 200 mg/dLsuggests DIABETES MELLITUS per A.D.A. criteria. Neutrophils (Bld) [#/Vol] 7.6 10*3/uL 2.0-7.7 [facility] Neutrophils/100 WBC (Bld) 70.5 % 47-70 [facility] Potassium [Moles/Vol] 4.0 mmol/L 3.5-5.1 [facility] Comment on above: Slight Hemolysis, Re sult may be falsely increased. Protein [Mass/Vol] 8.7 g/dL 6.4-8.2 [facility] Sodium [Moles/Vol] 134 mmol/L 136-145 [facility] WBC (Bld) [#/Vol] 10.7 10*3/uL 4.4-11.0 [facility] Bilirubin Test strip Ql (U)O rdered By: Carlos Calvo on 01-09-2023 Bilirubin Ql (U) Negative Negative [facility] Blood erythrocytes count (nu mber/volume)Ordered By: Carlos Calvo on 01-09-2023 RBC (Bld) [#/Vol] 5.01 10*6/uL 4.2-5.4 [facility] Blood hemoglobin measurement (mass/volume)Ordered By: Carlos Calvo on 01-09-2023 Hemoglobin (Bld) [Mass/Vol] 13.0 g/dL 12.0-15.0 [facility] Blood lymphocytes/100 leukoc ytesOrdered By: Carlos Calvo on 01-09-2023 Lymphocytes/100 WBC (Bld) 23.0 % 19-41 [facility] Blood monocytes/100 leukocyt esOrdered By: Carlos Cavlo on 01-09-2023 Monocytes/100 WBC (Bld) 4.9 % 0-10 [facility] Blood platelet mean volumeOr dered By: Carlos Calvo on 01-09-2023 Platelet mean volume (Bld) [Entitic vol] 9.5 fL 6.2-12.0 [facility] Determination of erythrocyte mean corpuscular volume (MCV)Ordered By: Carlos Calvo on 01-09-2023 MCV (RBC) [Entitic vol] 79.8 fL 81-99 [facility] Glucose Glucometer (BldC) [M ass/Vol]Ordered By: Deann Guerrero on 01-09-2023 Glucose [Mass/Vol] 254 mg/dL 74-106 [facility] Comment on above: MANAGEMENT OF PATIEN T CARE PER NURSING PROTOCOL Hematocrit Auto (Bld) [Volum e fraction]Ordered By: Carlos Calvo on 01-09-2023 Hematocrit (Bld) [Volume fraction] 40.0 % 37-47 [facility] Ketones Test strip Ql (U)Ord ered By: Carlos Calvo on 01-09-2023 Ketones Ql (U) 50 mg/dl Negative [facility] Laboratory - Chemistry and C hemistry - challengeOrdered By: Carlos Calvo on 01-09-2023 HCG ( test) Ql (U) Negative [facility] Comment on above: Very dilute urine sp ecimens, as indicated by a low specificgravity, may not contain business representative levels of hCG. If is still suspected, a first morning urinespecimen should be collected 48 hours later and tested. ALP [Catalytic activity/Vol] 85 U/L 45-117 [facility] ALT [Catalytic activity/Vol] 20 U/L 13-56 [facility] CO2 [Moles/Vol] 21.0 mmol/L 21.0-32.0 [facility] Globulin (S) [Mass/Vol] 5.2 g/dL 2.2-4.2 [facility] Lipase [Catalytic activity/Vol] 38 U/L 13-75 [facility] Comment on above: Please note:LIPASE r evised reference range effective 22. New Lipase methodology. Expected to produce lower values than the previous assay method. NEW Reference Range: 13 - 75 U/L Urea nitrogen/Creatinine [Mass ratio] 7.9 mg/mg 10-20 [facility] Laboratory - Hematology and Cell countsOrdered By: Carlos Calvo on 01-09-2023 Erythrocyte distribution width (RBC) [Entitic vol] 38.3 fL 35.1-43.9 [facility] Erythrocyte distribution width (RBC) [Ratio] 13.4 % 11.6-14.6 [facility] Immature granulocytes/100 WBC (Bld) 0.900 % 0.0-0.9 [facility] Comment on above: IG% - Immature Granu locytes (promyelocytes, myelocytes and metamyelocytes) > 1% indicates that a LEFT SHIFT is Present. MCH (RBC) [Entitic mass] 25.9 pg 27.0-32.0 [facility] Nucleated RBC/100 WBC (Bld) [Ratio] 0 % 0-5 [facility] MCHC Auto (RBC) [Mass/Vol]Or dered By: Carlos Calvo on 01-09-2023 MCHC (RBC) [Mass/Vol] 32.5 g/dL 32-36 [facility] Mucus LM Ql (Urine sed)Order ed By: Carlos Calvo on 01-09-2023 Mucus Ql (Urine sed) 0 SEEN /hpf [facility] Nitrite Test strip Ql (U)Ord ered By: Carlos Calvo on 01-09-2023 Nitrite Ql (U) Negative Negative [facility] No Panel InformationOrdered By: Carlos Calvo on 01-09-[address] [facility] Estimated Creatinine Clearance Calc 67.55 ml/min [facility] Estimated GFR (MDRD) Amer 72 mL/min >60 [facility] Comment on above: GFR Calc Estimated GFR (MDRD) Non-Af Amer 59 mL/min >60 [facility] Comment on above: Non- GFR Calc 25.9 pg 27.0-32.0 [facility] 13.4 % 11.6-14.6 [facility] 38.3 fl 35.1-43.9 [facility] 0.900 % 0.0-0.9 [facility] 0 % 0-5 [facility] 59 mL/min >60 [facility] 72 mL/min >60 [facility] 67.55 ml/min [facility] 7.9 RATIO 10-20 [facility] 5.2 g/dL 2.2-4.2 [facility] 38 U/L 13-75 [facility] 85 U/L 45-117 [facility] 20 U/L 13-56 [facility] 21.0 mmol/L 21.0-32.0 [facility] Platelets bldOrdered By: Analia Calvo on 01-09-2023 Platelets (Bld) [#/Vol] 397 10*3/uL 150-450 [facility] Protein Test strip Ql (U)Ord ered By: Carlos Calvo on 01-09-2023 Protein Ql (U) 15 mg/dl Negative [facility] Serum or plasma albumin hussein urement (mass/volume)Ordered By: Carlos Calvo on 01-09-2023 Albumin [Mass/Vol] 3.5 g/dL 3.2-5.0 [facility] Serum or plasma albumin/glob ulin mass ratioOrdered By: Carlos Calvo on 01-09-2023 Albumin/Globulin [Mass ratio] 0.7 {ratio} 0.9-2.4 [facility] Serum or plasma calcium hussein urement (mass/volume)Ordered By: Carlos Calvo on 01-09-2023 Calcium [Mass/Vol] 9.5 mg/dL 8.5-10.1 [facility] Serum or plasma creatinine m easurement (mass/volume)Ordered By: Carlos Calvo on 01-09-2023 Creatinine [Mass/Vol] 1.14 mg/dL 0.55-1.02 [facility] Comment on above: The validity of the calculated GFR & GFRAA in patients over 70 years has not been determined. Clinical correlation is essential. Serum or plasma urea nitroge n measurement (mass/volume)Ordered By: Carlos Calvo on 01-09-2023 Urea nitrogen [Mass/Vol] 9 mg/dL 7-18 [facility] Squamous epithelial cells de tection in urine sediment by light microscopyOrdered By: Carlos Calvo on 01-09-2023 Epithelial cells.squamous LM Ql (Urine sed) 5-10 SEEN /hpf 5-10 [facility] Thin prep Papanicolaou smear with manual screeningOrdered By: Carlos Calvo on 01-09-2023 Thin prep Papanicolaou smear with manual screening 19 U/L 15-37 [facility] Comment on above: Slight Hemolysis, Re sult may be falsely increased. Thin prep Papanicolaou smear with manual screening 12 5-15 [facility] Urine blood detectionOrdered By: Carlos Calvo on 01-09-2023 RBC Ql (U) 10 /ul Negative [facility] RBC Ql (U) 0 SEEN /hpf 0-5 [facility] Urine clarityOrdered By: Analia Calvo on 01-09-2023 Clarity (U) Clear Clear [facility] Urine color determinationOrd ered By: Carlos Calvo on 01-09-2023 Color (U) Yellow Yellow [facility] Urine glucose detectionOrder ed By: Carlos Calvo on 01-09-2023 Glucose Ql (U) 1000 mg/dl Normal [facility] Urine leukocyte esterase det ection by dipstickOrdered By: Carlos Calvo on 01-09-2023 Leukocyte esterase Test strip Ql (U) 25 /ul Negative [facility] Urine pHOrdered By: Carlos mclain on 01-09-2023 pH (U) 8.0 [pH] 5.0 - 8.0 [facility] Urine sediment bacteria coun t by microscopy (number/high power field)Ordered By: Carlos Calvo on 01-09-2023 Bacteria LM.HPF (Urine sed) [#/Area] 0 /[HPF] None Seen [facility] Urine specific gravity measu rementOrdered By: Carlos Calvo on 01-09-2023 Specific gravity (U) [Rel density] 1.015 1.002-1.030 [facility] Urobilinogen Auto test strip Ql (U)Ordered By: Carlos Calvo on 01-09-2023 Urobilinogen Ql (U) Normal mg/dl Normal [facility] Absolute lymphocyte countOrd ered By: Poli Barfield on 01-07-2023 Lymphocytes Auto (Unsp spec) [#/Vol] 3.48 10*3/uL 0.83-4.51 [facility] Basophil percentageOrdered B y: Poli Barfield on 01-07-2023 Basophil percentage 202 mg/dL 74-106 [facility] Basophil percentage 135 mmol/L 136-145 [facility] Basophil percentage 3.8 mmol/L 3.5-5.1 [facility] Basophil percentage 102 mmol/L 98-107 [facility] Basophils (Bld) [#/Vol] 9.0 10*3/uL 4.4-11.0 [facility] Basophils (Bld) [#/Vol] 4.8 10*3/uL 2.0-7.7 [facility] Basophils/100 WBC (Bld) 0.4 % 0-1 [facility] Basophils/100 WBC (Bld) 53.2 % 47-70 [facility] Basophils/100 WBC (Bld) 1.0 % 0-5 [facility] Chloride [Moles/Vol] 102 mmol/L 98-107 [facility] Eosinophils/100 WBC (Bld) 1.0 % 0-5 [facility] Glucose [Mass/Vol] 202 mg/dL 74-106 [facility] Comment on above: Glucose result great er than or equal to 200 mg/dLsuggests DIABETES MELLITUS per A.D.A. criteria. Neutrophils (Bld) [#/Vol] 4.8 10*3/uL 2.0-7.7 [facility] Neutrophils/100 WBC (Bld) 53.2 % 47-70 [facility] Potassium [Moles/Vol] 3.8 mmol/L 3.5-5.1 [facility] Sodium [Moles/Vol] 135 mmol/L 136-145 [facility] WBC (Bld) [#/Vol] 9.0 10*3/uL 4.4-11.0 [facility] Blood erythrocytes count (nu mber/volume)Ordered By: Poli Barfield on 01-07-2023 RBC (Bld) [#/Vol] 4.92 10*6/uL 4.2-5.4 [facility] Blood hemoglobin measurement (mass/volume)Ordered By: Poli Barfield on 01-07-2023 Hemoglobin (Bld) [Mass/Vol] 12.7 g/dL 12.0-15.0 [facility] Blood lymphocytes/100 leukoc ytesOrdered By: Poli Barfield on 01-07-2023 Lymphocytes/100 WBC (Bld) 38.5 % 19-41 [facility] Blood monocytes/100 leukocyt esOrdered By: Poli Barfield on 01-07-2023 Monocytes/100 WBC (Bld) 5.9 % 0-10 [facility] Blood platelet mean volumeOr dered By: Poli Barfield on 01-07-2023 Platelet mean volume (Bld) [Entitic vol] 9.1 fL 6.2-12.0 [facility] Determination of erythrocyte mean corpuscular volume (MCV)Ordered By: Poli Barfield on 01-07-2023 MCV (RBC) [Entitic vol] 79.7 fL 81-99 [facility] Glucose Glucometer (dC) [M ass/Vol]Ordered By: Poli Barfield on 01-07-2023 Glucose [Mass/Vol] 206 mg/dL 74-106 [facility] Comment on above: MANAGEMENT OF PATIEN T CARE PER NURSING PROTOCOL Hematocrit Auto (Bld) [Volum e fraction]Ordered By: Poli Barfield on 01-07-2023 Hematocrit (Bld) [Volume fraction] 39.2 % 37-47 [facility] Laboratory - Chemistry and C hemistry - challengeOrdered By: Poli Barfield on 01-07-2023 HCG ( test) Ql (U) Negative [facility] Comment on above: Very dilute urine sp ecimens, as indicated by a low specificgravity, may not contain business representative levels of hCG. If is still suspected, a first morning urinespecimen should be collected 48 hours later and tested. CO2 [Moles/Vol] 24.0 mmol/L 21.0-32.0 [facility] Urea nitrogen/Creatinine [Mass ratio] 8.9 mg/mg 10-20 [facility] Laboratory - Drug toxicology Ordered By: Poli Barfield on 01-07-2023 Amphetamines Ql (U) Negative <1000 ng/mL [facility] Benzodiazepines Ql (U) Negative < 200 ng/mL [facility] Cannabinoids Screen Ql (U) Positive < 50 ng/mL [facility] Cocaine Ql (U) Negative < 300 ng/mL [facility] Opiates Ql (U) Negative < 300 ng/mL [facility] Laboratory - Hematology and Cell countsOrdered By: Poli Barfield on 01-07-2023 Erythrocyte distribution width (RBC) [Entitic vol] 38.9 fL 35.1-43.9 [facility] Erythrocyte distribution width (RBC) [Ratio] 13.5 % 11.6-14.6 [facility] Immature granulocytes/100 WBC (Bld) 1.000 % 0.0-0.9 [facility] Comment on above: IG% - Immature Granu locytes (promyelocytes, myelocytes and metamyelocytes) > 1% indicates that a LEFT SHIFT is Present. MCH (RBC) [Entitic mass] 25.8 pg 27.0-32.0 [facility] Nucleated RBC/100 WBC (Bld) [Ratio] 0 % 0-5 [facility] MCHC Auto (RBC) [Mass/Vol]Or dered By: Poli Barfield on 01-07-2023 MCHC (RBC) [Mass/Vol] 32.4 g/dL 32-36 [facility] No Panel InformationOrdered By: Poli Barfield on 01-07-2023 MDMA (Ecstasy) Screen Positive < 500 ng/mL [facility] Urine Barbiturates Screen Negative < 200 ng/mL [facility] Urine Drug Screen Comment [facility] Comment on above: CONFIRMATORY TESTING FOR ALL POSITIVE URINE DRUG SCREENRESULTS WILL ONLY BE SENT OUT UPON PHYSICIAN ORDER. VISTA Urine Drug Screen methods provide only preliminaryanalytical test results. A more specific alternate chemicalmethod must be used in order to obtain a confirmedanalytical result. Gas chromatography/mass spectrometery(GC/MS) is the preferred confirmatory method. Clinicalconsideration and professional judgement should be appliedto any drug of abuse test result, particularly whenpreliminary positive results are used. URINE TCA TESTING MUST BE ORDERED SEPARATELY. USE TESTMNEMONIC: [facility] Urine Methadone Screen Negative < 300 ng/mL [facility] Negative < 300 ng/mL [facility] Positive < 50 ng/mL [facility] Estimated Creatinine Clearance Calc 68.76 ml/min [facility] Estimated GFR (MDRD) Amer 73 mL/min >60 [facility] Comment on above: GFR Calc Estimated GFR (MDRD) Non-Af Amer 60 mL/min >60 [facility] Comment on above: Non- GFR Calc 25.8 pg 27.0-32.0 [facility] 13.5 % 11.6-14.6 [facility] 38.9 fl 35.1-43.9 [facility] 1.000 % 0.0-0.9 [facility] 0 % 0-5 [facility] 60 mL/min >60 [facility] 73 mL/min >60 [facility] 68.76 ml/min [facility] 8.9 RATIO 10-20 [facility] 24.0 mmol/L 21.0-32.0 [facility] Platelets bldOrdered By: Devon Barfield on 01-07-2023 Platelets (Bld) [#/Vol] 380 10*3/uL 150-450 [facility] Serum or plasma calcium hussein urement (mass/volume)Ordered By: Poli Barfield on 01-07-2023 Calcium [Mass/Vol] 9.0 mg/dL 8.5-10.1 [facility] Serum or plasma creatinine m easurement (mass/volume)Ordered By: Poli Barfield on 01-07-2023 Creatinine [Mass/Vol] 1.12 mg/dL 0.55-1.02 [facility] Comment on above: The validity of the calculated GFR & GFRAA in patients over 70 years has not been determined. Clinical correlation is essential. Serum or plasma urea nitroge n measurement (mass/volume)Ordered By: Poli Barfield on 01-07-2023 Urea nitrogen [Mass/Vol] 10 mg/dL 7-18 [facility] Thin prep Papanicolaou smear with manual screeningOrdered By: Poli Barfield on 01-07-2023 Thin prep Papanicolaou smear with manual screening 9 5-15 [facility] Urine phencyclidine (PCP) de tectionOrdered By: Poli Barfield on 01-07-2023 Phencyclidine Ql (U) Negative < 25 ng/mL [facility] Basophil percentageOrdered B y: Amy Solorzano on 11-25-2022 Basophil percentage 493 mg/dL 74-106 [facility] Basophil percentage 8.0 g/dL 6.4-8.2 [facility] Basophil percentage 0.20 mg/dL 0.20-1.00 [facility] Basophil percentage 130 mmol/L 136-145 [facility] Basophil percentage 4.3 mmol/L 3.5-5.1 [facility] Basophil percentage 99 mmol/L 98-107 [facility] Basophils (Bld) [#/Vol] 8.2 10*3/uL 4.4-11.0 [facility] Bilirubin [Mass/Vol] 0.20 mg/dL 0.20-1.00 [facility] Comment on above: For patients on eltr ombopag therapy, use of [employer] TBIL is not recommended. Chloride [Moles/Vol] 99 mmol/L 98-107 [facility] Glucose [Mass/Vol] 493 mg/dL 74-106 [facility] Comment on above: Critical Result(s) C alled at: 11:44:33 11/25/2022 by: NICOLE PATE TO GHISLAINE MCQUEEN. Results read back by same.Glucose result greater than or equal to 200 mg/dLsuggests DIABETES MELLITUS per A.D.A. criteria. Potassium [Moles/Vol] 4.3 mmol/L 3.5-5.1 [facility] Protein [Mass/Vol] 8.0 g/dL 6.4-8.2 [facility] Sodium [Moles/Vol] 130 mmol/L 136-145 [facility] WBC (Bld) [#/Vol] 8.2 10*3/uL 4.4-11.0 [facility] Blood erythrocytes count (nu mber/volume)Ordered By: Amy Solorzano on 11-25-2022 RBC (Bld) [#/Vol] 4.74 10*6/uL 4.2-5.4 [facility] Blood hemoglobin measurement (mass/volume)Ordered By: Amy Solorzano on 11-25-2022 Hemoglobin (Bld) [Mass/Vol] 12.5 g/dL 12.0-15.0 [facility] Blood platelet mean volumeOr dered By: Amy Solorzano on 11-25-2022 Platelet mean volume (Bld) [Entitic vol] 9.5 fL 6.2-12.0 [facility] Determination of erythrocyte mean corpuscular volume (MCV)Ordered By: Amy Solorzano on 11-25-2022 MCV (RBC) [Entitic vol] 80.2 fL 81-99 [facility] Hematocrit Auto (Bld) [Volum e fraction]Ordered By: Amy Solorzano on 11-25-2022 Hematocrit (Bld) [Volume fraction] 38.0 % 37-47 [facility] Laboratory - Chemistry and C hemistry - challengeOrdered By: Amy Solorzano on 11-25-2022 ALP [Catalytic activity/Vol] 110 U/L 45-117 [facility] ALT [Catalytic activity/Vol] 26 U/L 13-56 [facility] CO2 [Moles/Vol] 19.0 mmol/L 21.0-32.0 [facility] Globulin (S) [Mass/Vol] 5.0 g/dL 2.2-4.2 [facility] Urea nitrogen/Creatinine [Mass ratio] 11.3 mg/mg 10-20 [facility] Laboratory - Hematology and Cell countsOrdered By: Amy Solorzano on 11-25-2022 Erythrocyte distribution width (RBC) [Entitic vol] 40.1 fL 35.1-43.9 [facility] Erythrocyte distribution width (RBC) [Ratio] 13.9 % 11.6-14.6 [facility] MCH (RBC) [Entitic mass] 26.4 pg 27.0-32.0 [facility] Auto (RBC) [Mass/Vol]Or dered By: Amy Solorzano on 11-25-2022 MCHC (RBC) [Mass/Vol] 32.9 g/dL 32-36 [facility] No Panel InformationOrdered By: Amy Solorzano on 11-25-2022 Estimated GFR (MDRD) Amer 71 mL/min >60 [facility] Comment on above: GFR Calc Estimated GFR (MDRD) Non-Af Amer 59 mL/min >60 [facility] Comment on above: Non- GFR Calc 26.4 pg 27.0-32.0 [facility] 13.9 % 11.6-14.6 [facility] 40.1 fl 35.1-43.9 [facility] 59 mL/min >60 [facility] 71 mL/min >60 [facility] 11.3 RATIO 10-20 [facility] 5.0 g/dL 2.2-4.2 [facility] 110 U/L 45-117 [facility] 26 U/L 13-56 [facility] 19.0 mmol/L 21.0-32.0 [facility] Platelets bldOrdered By: Glendy Solorzano on 11-25-2022 Platelets (Bld) [#/Vol] 375 10*3/uL 150-450 [facility] Serum or plasma albumin hussein urement (mass/volume)Ordered By: Amy Solorzano on 11-25-2022 Albumin [Mass/Vol] 3.0 g/dL 3.2-5.0 [facility] Serum or plasma albumin/glob ulin mass ratioOrdered By: Amy Solorzano on 11-25-2022 Albumin/Globulin [Mass ratio] 0.6 {ratio} 0.9-2.4 [facility] Serum or plasma calcium hussein urement (mass/volume)Ordered By: Amy Solorzano on 11-25-2022 Calcium [Mass/Vol] 8.2 mg/dL 8.5-10.1 [facility] Serum or plasma creatinine m easurement (mass/volume)Ordered By: Amy Solorzano on 11-25-2022 Creatinine [Mass/Vol] 1.15 mg/dL 0.55-1.02 [facility] Comment on above: The validity of the calculated GFR & GFRAA in patients over 70 years has not been determined. Clinical correlation is essential. Serum or plasma urea nitroge n measurement (mass/volume)Ordered By: Amy Solorzano on 11-25-2022 Urea nitrogen [Mass/Vol] 13 mg/dL 7-18 [facility] Thin prep Papanicolaou smear with manual screeningOrdered By: Amy Solorzano on 11-25-2022 Thin prep Papanicolaou smear with manual screening 15 U/L 15-37 [facility] Thin prep Papanicolaou smear with manual screening 12 5-15 [facility] Thin prep Papanicolaou smear with manual screening 6.1 mg/L NO RANGE EST. [facility] Whole blood hemoglobin A1c/t otal hemoglobin ratio (mass fraction)Ordered By: Amy Solorzano on 11-25-2022 HbA1c (Bld) [Mass fraction] 12.1 % 3.8-5.6 [facility] Comment on above: Normal < 5.7 % Predi abetic 5.7 - 6.4 % Diabetic >or= 6.5 % Please note range changes. Absolute lymphocyte countOrd ered By: Dr. Villatoro on 08-15-2022 Lymphocytes Auto (Unsp spec) [#/Vol] 2.49 10*3/uL 0.83-4.51 [facility] Basophil percentageOrdered B y: Dr. Villatoro on 08-15-2022 Basophils/100 WBC (Bld) 0.4 % 0-1 [facility] Chloride [Moles/Vol] 104 mmol/L 98-107 [facility] Eosinophils/100 WBC (Bld) 0.9 % 0-5 [facility] Glucose [Mass/Vol] 215 mg/dL 74-106 [facility] Comment on above: Glucose result great er than or equal to 200 mg/dLsuggests DIABETES MELLITUS per A.D.A. criteria. Neutrophils (Bld) [#/Vol] 5.7 10*3/uL 2.0-7.7 [facility] Neutrophils/100 WBC (Bld) 62.3 % 47-70 [facility] Potassium [Moles/Vol] 4.0 mmol/L 3.5-5.1 [facility] Sodium [Moles/Vol] 137 mmol/L 136-145 [facility] WBC (Bld) [#/Vol] 9.2 10*3/uL 4.4-11.0 [facility] Blood erythrocytes count (nu mber/volume)Ordered By: Dr. Villatoro on 08-15-2022 RBC (Bld) [#/Vol] 3.60 10*6/uL 4.2-5.4 [facility] Blood hemoglobin measurement (mass/volume)Ordered By: Dr. Villatoro on 08-15-2022 Hemoglobin (Bld) [Mass/Vol] 9.2 g/dL 12.0-15.0 [facility] Blood lymphocytes/100 leukoc ytesOrdered By: Dr. Villatoro on 08-15-2022 Lymphocytes/100 WBC (Bld) 27.1 % 19-41 [facility] Blood monocytes/100 leukocyt esOrdered By: Dr. Villatoro on 08-15-2022 Monocytes/100 WBC (Bld) 8.2 % 0-10 [facility] Blood platelet mean volumeOr dered By: Dr. Villatoro on 08-15-2022 Platelet mean volume (Bld) [Entitic vol] 9.0 fL 6.2-12.0 [facility] Determination of erythrocyte mean corpuscular volume (MCV)Ordered By: Dr. Villatoro on 08-15-2022 MCV (RBC) [Entitic vol] 81.4 fL 81-99 [facility] Glucose Glucometer (BldC) [M ass/Vol]Ordered By: Dr. Villatoro on 08-15-2022 Glucose [Mass/Vol] 290 mg/dL 74-106 [facility] Comment on above: MANAGEMENT OF PATIEN T CARE PER NURSING PROTOCOL Hematocrit Auto (Bld) [Volum e fraction]Ordered By: Dr. Villatoro on 08-15-2022 Hematocrit (Bld) [Volume fraction] 29.3 % 37-47 [facility] Laboratory - Chemistry and C hemistry - challengeOrdered By: Dr. Villatoro on 08-15-2022 CO2 [Moles/Vol] 24.0 mmol/L 21.0-32.0 [facility] Urea nitrogen/Creatinine [Mass ratio] 7.1 mg/mg 10-20 [facility] Laboratory - Hematology and Cell countsOrdered By: Dr. Villatoro on 08-15-2022 Erythrocyte distribution width (RBC) [Entitic vol] 38.4 fL 35.1-43.9 [facility] Erythrocyte distribution width (RBC) [Ratio] 12.9 % 11.6-14.6 [facility] Immature granulocytes/100 WBC (Bld) 1.100 % 0.0-0.9 [facility] Comment on above: IG% - Immature Granu locytes (promyelocytes, myelocytes and metamyelocytes) > 1% indicates that a LEFT SHIFT is Present. MCH (RBC) [Entitic mass] 25.6 pg 27.0-32.0 [facility] Nucleated RBC/100 WBC (Bld) [Ratio] 0 % 0-5 [facility] MCHC Auto (RBC) [Mass/Vol]Or dered By: Dr. Villatoro on 08-15-2022 MCHC (RBC) [Mass/Vol] 31.4 g/dL 32-36 [facility] No Panel InformationOrdered By: Dr. Villatoro on 08-15-2022 Estimated Creatinine Clearance Calc 110.01 ml/min [facility] Estimated GFR (MDRD) Amer 125 mL/min >60 [facility] Comment on above: GFR Calc Estimated GFR (MDRD) Non-Af Amer 104 mL/min >60 [facility] Comment on above: Non- GFR Calc Platelets bldOrdered By: Dr. Villatoro on 08-15-2022 Platelets (Bld) [#/Vol] 458 10*3/uL 150-450 [facility] Serum or plasma C reactive p rotein measurement (mass/volume)Ordered By: Dr. Villatoro on 08-15-2022 CRP [Mass/Vol] 119.00 mg/L 0.0-3.0 [facility] Comment on above: C-Reactive Protein ( CRP) provides useful information for thediagnosis, therapy and monitoring of inflammatory processesand associated diseases. For the evaluation of Relative Riskfor Cardiovascular Disease, a High Sensitivity CRP (HSCRP)should be ordered. Serum or plasma calcium hussein urement (mass/volume)Ordered By: Dr. Villatoro on 08-15-2022 Calcium [Mass/Vol] 8.4 mg/dL 8.5-10.1 [facility] Serum or plasma creatinine m easurement (mass/volume)Ordered By: Dr. Villatoro on 08-15-2022 Creatinine [Mass/Vol] 0.70 mg/dL 0.55-1.02 [facility] Comment on above: The validity of the calculated GFR & GFRAA in patients over 70 years has not been determined. Clinical correlation is essential. Serum or plasma urea nitroge n measurement (mass/volume)Ordered By: Dr. Villatoro on 08-15-2022 Urea nitrogen [Mass/Vol] 5 mg/dL 7-18 [facility] Thin prep Papanicolaou smear with manual screeningOrdered By: Dr. Villatoro on 08-15-2022 Thin prep Papanicolaou smear with manual screening 9 5-15 [facility] Culture, urineOrdered By: Dr Marine Christiansen on 08-14-2022 Bacteria identified Cx Nom (U) Escherichia coli [facility] Basophil percentageOrdered B y: Dr. Urbina on 08-13-2022 Bilirubin [Mass/Vol] 0.50 mg/dL 0.20-1.00 [facility] Comment on above: For patients on eltr ombopag therapy, use of [employer] TBIL is not recommended. Protein [Mass/Vol] 8.1 g/dL 6.4-8.2 [facility] Erythrocyte sedimentation ra teOrdered By: Dr. Villatoro on 08-13-2022 ESR (Bld) [Velocity] 43 mm/h 0-30 [facility] Laboratory - Chemistry and C hemistry - challengeOrdered By: Dr. Urbina on 08-13-2022 ALP [Catalytic activity/Vol] 99 U/L 45-117 [facility] ALT [Catalytic activity/Vol] 11 U/L 13-56 [facility] Globulin (S) [Mass/Vol] 5.6 g/dL 2.2-4.2 [facility] Magnesium [Mass/Vol] 2.2 mg/dL 1.6-2.6 [facility] Serum or plasma albumin hussein urement (mass/volume)Ordered By: Dr. Urbina on 08-13-2022 Albumin [Mass/Vol] 2.5 g/dL 3.2-5.0 [facility] Serum or plasma albumin/glob ulin mass ratioOrdered By: Dr. Urbina on 08-13-2022 Albumin/Globulin [Mass ratio] 0.4 {ratio} 0.9-2.4 [facility] Thin prep Papanicolaou smear with manual screeningOrdered By: Dr. Urbina on 08-13-2022 Thin prep Papanicolaou smear with manual screening 8 U/L 15-37 [facility] Absolute lymphocyte countOrd ered By: Dr. Christiansen on 08-12-2022 Lymphocytes Auto (Unsp spec) [#/Vol] 3.81 10*3/uL 0.83-4.51 [facility] Basophil percentageOrdered B y: Dr. Christiansen on 08-12-2022 Basophil percentage 10-25 SEEN /hpf 0-5 [facility] Basophils/100 WBC (Bld) 0.3 % 0-1 [facility] Bilirubin [Mass/Vol] 0.50 mg/dL 0.20-1.00 [facility] Comment on above: For patients on eltr ombopag therapy, use of [employer] TBIL is not recommended. Chloride [Moles/Vol] 95 mmol/L 98-107 [facility] Eosinophils/100 WBC (Bld) 0.1 % 0-5 [facility] Glucose [Mass/Vol] 230 mg/dL 74-106 [facility] Comment on above: Glucose result great er than or equal to 200 mg/dLsuggests DIABETES MELLITUS per A.D.A. criteria. Neutrophils (Bld) [#/Vol] 13.2 10*3/uL 2.0-7.7 [facility] Neutrophils/100 WBC (Bld) 69.8 % 47-70 [facility] Potassium [Moles/Vol] 3.9 mmol/L 3.5-5.1 [facility] Comment on above: Slight Hemolysis, Re sult may be falsely increased. Protein [Mass/Vol] 9.2 g/dL 6.4-8.2 [facility] Sodium [Moles/Vol] 130 mmol/L 136-145 [facility] WBC (Bld) [#/Vol] 18.9 10*3/uL 4.4-11.0 [facility] Bilirubin Test strip Ql (U)O rdered By: Dr. Christiansen on 08-12-2022 Bilirubin Ql (U) Negative Negative [facility] Blood erythrocytes count (nu mber/volume)Ordered By: Dr. Christiansen on 08-12-2022 RBC (Bld) [#/Vol] 4.35 10*6/uL 4.2-5.4 [facility] Blood hemoglobin measurement (mass/volume)Ordered By: Dr. Christiansen on 08-12-2022 Hemoglobin (Bld) [Mass/Vol] 11.4 g/dL 12.0-15.0 [facility] Blood lymphocytes/100 leukoc ytesOrdered By: Dr. Christiansen on 08-12-2022 Lymphocytes/100 WBC (Bld) 20.1 % 19-41 [facility] Blood manual differential co mment interpretation (narrative result)Ordered By: Dr. Christiansen on 08-12-2022 Manual differential comment Franky (Bld) [Interp] SCANNED [facility] Comment on above: MONOCYTOSIS NOTED Blood monocytes/100 leukocyt esOrdered By: Dr. Christiansen on 08-12-2022 Monocytes/100 WBC (Bld) 8.7 % 0-10 [facility] Blood platelet mean volumeOr dered By: Dr. Christiansen on 08-12-2022 Platelet mean volume (Bld) [Entitic vol] 9.3 fL 6.2-12.0 [facility] Determination of erythrocyte mean corpuscular volume (MCV)Ordered By: Dr. Christiansen on 08-12-2022 MCV (RBC) [Entitic vol] 78.2 fL 81-99 [facility] Glucose Glucometer (BldC) [M ass/Vol]Ordered By: Dr. Urbina on 08-12-2022 Glucose [Mass/Vol] 212 mg/dL 74-106 [facility] Comment on above: MANAGEMENT OF PATIEN T CARE PER NURSING PROTOCOL Hematocrit Auto (Bld) [Volum e fraction]Ordered By: Dr. Christiansen on 08-12-2022 Hematocrit (Bld) [Volume fraction] 34.0 % 37-47 [facility] Ketones Test strip Ql (U)Ord ered By: Dr. Christiansen on 08-12-2022 Ketones Ql (U) 15 mg/dl Negative [facility] Laboratory - Chemistry and C hemistry - challengeOrdered By: Dr. Christiansen on 08-12-2022 ALP [Catalytic activity/Vol] 136 U/L 45-117 [facility] ALT [Catalytic activity/Vol] 13 U/L 13-56 [facility] CO2 [Moles/Vol] 23.0 mmol/L 21.0-32.0 [facility] Globulin (S) [Mass/Vol] 6.3 g/dL 2.2-4.2 [facility] Magnesium [Mass/Vol] 1.6 mg/dL 1.6-2.6 [facility] Comment on above: Slight Hemolysis, Re sult may be falsely increased. Urea nitrogen/Creatinine [Mass ratio] 7.2 mg/mg 10-20 [facility] Laboratory - Hematology and Cell countsOrdered By: Dr. Christiansen on 08-12-2022 Erythrocyte distribution width (RBC) [Entitic vol] 36.9 fL 35.1-43.9 [facility] Erythrocyte distribution width (RBC) [Ratio] 12.9 % 11.6-14.6 [facility] Immature granulocytes/100 WBC (Bld) 1.000 % 0.0-0.9 [facility] Comment on above: IG% - Immature Granu locytes (promyelocytes, myelocytes and metamyelocytes) > 1% indicates that a LEFT SHIFT is Present. MCH (RBC) [Entitic mass] 26.2 pg 27.0-32.0 [facility] Nucleated RBC/100 WBC (Bld) [Ratio] 0 % 0-5 [facility] MCHC Auto (RBC) [Mass/Vol]Or dered By: Dr. Christiansen on 08-12-2022 MCHC (RBC) [Mass/Vol] 33.5 g/dL 32-36 [facility] Mucus LM Ql (Urine sed)Order ed By: Dr. Christiansen on 08-12-2022 Mucus Ql (Urine sed) 0 SEEN /hpf [facility] Nitrite Test strip Ql (U)Ord ered By: Dr. Christiansen on 08-12-2022 Nitrite Ql (U) Negative Negative [facility] No Panel InformationOrdered By: Dr. Christiansen on 08-12-2022 Estimated Creatinine Clearance Calc 69.38 ml/min [facility] Estimated GFR (MDRD) Amer 74 mL/min >60 [facility] Comment on above: GFR Calc Estimated GFR (MDRD) Non-Af Amer 61 mL/min >60 [facility] Comment on above: Non- GFR Calc Troponin I High Sensitivity 6 pg/mL 3.0-54.0 [facility] Comment on above: Please Note: New Catherine t Units and Gender Specific Reference Ranges. For more information see Policy [employer] [facility] High Sensitivity Troponin (TNIH) and attachments. Platelets bldOrdered By: Dr. Christiansen on 08-12-2022 Platelets (Bld) [#/Vol] 453 10*3/uL 150-450 [facility] Protein Test strip Ql (U)Ord ered By: Dr. Christiansen on 08-12-2022 Protein Ql (U) 100 mg/dl Negative [facility] Review by pathologistOrdered By: Dr. Christiansen on 08-12-2022 Pathologist review Franky (Unsp spec) [Interp] Zahraa waite [facility] Pathologist review Franky (Unsp spec) [Interp] Reviewed [facility] Comment on above: Previous reported re sult: Zahraa waite Edited by: RGOHEIDI on 08/14/22:0949Neutrophilic leukocytosis.Microcytic RBCs.Clinical correlation suggested.Franki Glez D.O. 08/14/22 AMENDED REPORT 08/14/22 0949 PATH REV previously reported as: Zahraa waite Serum or plasma acetone hussein urement (mass/volume)Ordered By: Dr. Christiansen on 08-12-2022 Acetone [Mass/Vol] Negative NEG [facility] Serum or plasma albumin hussein urement (mass/volume)Ordered By: Dr. Christiansen on 08-12-2022 Albumin [Mass/Vol] 2.9 g/dL 3.2-5.0 [facility] Serum or plasma albumin/glob ulin mass ratioOrdered By: Dr. Christiansen on 08-12-2022 Albumin/Globulin [Mass ratio] 0.5 {ratio} 0.9-2.4 [facility] Serum or plasma calcium hussein urement (mass/volume)Ordered By: Dr. Christiansen on 08-12-2022 Calcium [Mass/Vol] 9.6 mg/dL 8.5-10.1 [facility] Serum or plasma creatinine m easurement (mass/volume)Ordered By: Dr. Christiansen on 08-12-2022 Creatinine [Mass/Vol] 1.11 mg/dL 0.55-1.02 [facility] Comment on above: The validity of the calculated GFR & GFRAA in patients over 70 years has not been determined. Clinical correlation is essential. Serum or plasma urea nitroge n measurement (mass/volume)Ordered By: Dr. Christiansen on 08-12-2022 Urea nitrogen [Mass/Vol] 8 mg/dL 7-18 [facility] Squamous epithelial cells de tection in urine sediment by light microscopyOrdered By: Dr. Christiansen on 08-12-2022 Epithelial cells.squamous LM Ql (Urine sed) 0-5 SEEN /hpf 5-10 [facility] Thin prep Papanicolaou smear with manual screeningOrdered By: Dr. Christiansen on 08-12-2022 Thin prep Papanicolaou smear with manual screening 20 U/L 15-37 [facility] Comment on above: Slight Hemolysis, Re sult may be falsely increased. Thin prep Papanicolaou smear with manual screening 12 5-15 [facility] Urine blood detectionOrdered By: Dr. Christiansen on 08-12-2022 RBC Ql (U) 150 /ul Negative [facility] RBC Ql (U) 0 SEEN /hpf 0-5 [facility] Urine clarityOrdered By: Dr. Christiansen on 08-12-2022 Clarity (U) Clear Clear [facility] Urine color determinationOrd ered By: Dr. Christiansen on 08-12-2022 Color (U) Yellow Yellow [facility] Urine glucose detectionOrder ed By: Dr. Christiansen on 08-12-2022 Glucose Ql (U) 50 mg/dl Normal [facility] Urine leukocyte esterase det ection by dipstickOrdered By: Dr. Christiansen on 08-12-2022 Leukocyte esterase Test strip Ql (U) 100 /ul Negative [facility] Urine pHOrdered By: Dr. Ethan arriola on 08-12-2022 pH (U) 6.0 [pH] 5.0 - 8.0 [facility] Urine sediment bacteria coun t by microscopy (number/high power field)Ordered By: Dr. Christiansen on 08-12-2022 Bacteria LM.HPF (Urine sed) [#/Area] 0 /[HPF] None Seen [facility] Urine specific gravity measu rementOrdered By: Dr. Christiansen on 08-12-2022 Specific gravity (U) [Rel density] 1.010 1.002-1.030 [facility] Urobilinogen Auto test strip Ql (U)Ordered By: Dr. Christiansen on 08-12-2022 Urobilinogen Ql (U) Normal mg/dl Normal [facility] Acid fast bacilli (AFB) cult ureOrdered By: Dr. Matias on 08-09-2022 Mycobacterium sp identified Org specific cx Nom (Unsp spec) [facility] Thin prep Papanicolaou smear with manual screeningOrdered By: Dr. Matias on 08-09-2022 Thin prep Papanicolaou smear with manual screening [facility] Absolute lymphocyte countOrd ered By: Dr. Rao on 06-29-2022 Lymphocytes Auto (Unsp spec) [#/Vol] 2.81 10*3/uL 0.83-4.51 [facility] Basophil percentageOrdered B y: Dr. Rao on 06-29-2022 Basophils/100 WBC (Bld) 0.7 % 0-1 [facility] Chloride [Moles/Vol] 105 mmol/L 98-107 [facility] Eosinophils/100 WBC (Bld) 1.3 % 0-5 [facility] Glucose [Mass/Vol] 192 mg/dL 74-106 [facility] Comment on above: Fasting Glucose resu lt greater than or equal to 126 mg/dL suggests DIABETES MELLITUS per A.D.A. criteria. Neutrophils (Bld) [#/Vol] 4.2 10*3/uL 2.0-7.7 [facility] Neutrophils/100 WBC (Bld) 51.1 % 47-70 [facility] Potassium [Moles/Vol] 3.9 mmol/L 3.5-5.1 [facility] Sodium [Moles/Vol] 136 mmol/L 136-145 [facility] WBC (Bld) [#/Vol] 8.2 10*3/uL 4.4-11.0 [facility] Blood erythrocytes count (nu mber/volume)Ordered By: Dr. Rao on 06-29-2022 RBC (Bld) [#/Vol] 4.46 10*6/uL 4.2-5.4 [facility] Blood hemoglobin measurement (mass/volume)Ordered By: Dr. Rao on 06-29-2022 Hemoglobin (Bld) [Mass/Vol] 11.7 g/dL 12.0-15.0 [facility] Blood lymphocytes/100 leukoc ytesOrdered By: Dr. Rao on 06-29-2022 Lymphocytes/100 WBC (Bld) 34.3 % 19-41 [facility] Blood monocytes/100 leukocyt esOrdered By: Dr. Rao on 06-29-2022 Monocytes/100 WBC (Bld) 9.9 % 0-10 [facility] Blood platelet mean volumeOr dered By: Dr. Rao on 06-29-2022 Platelet mean volume (Bld) [Entitic vol] 9.1 fL 6.2-12.0 [facility] Determination of erythrocyte mean corpuscular volume (MCV)Ordered By: Dr. Rao on 06-29-2022 MCV (RBC) [Entitic vol] 81.8 fL 81-99 [facility] Glucose Glucometer (BldC) [M ass/Vol]Ordered By: Dr. Lr on 06-29-2022 Glucose [Mass/Vol] 251 mg/dL 74-106 [facility] Comment on above: MANAGEMENT OF PATIEN T CARE PER NURSING PROTOCOL Hematocrit Auto (Bld) [Volum e fraction]Ordered By: Dr. Rao on 06-29-2022 Hematocrit (Bld) [Volume fraction] 36.5 % 37-47 [facility] Laboratory - Chemistry and C hemistry - challengeOrdered By: Dr. Rao on 06-29-2022 CO2 [Moles/Vol] 24.0 mmol/L 21.0-32.0 [facility] Urea nitrogen/Creatinine [Mass ratio] 18.4 mg/mg 10-20 [facility] Laboratory - Hematology and Cell countsOrdered By: Dr. Rao on 06-29-2022 Erythrocyte distribution width (RBC) [Entitic vol] 41.2 fL 35.1-43.9 [facility] Erythrocyte distribution width (RBC) [Ratio] 14.1 % 11.6-14.6 [facility] Immature granulocytes/100 WBC (Bld) 2.700 % 0.0-0.9 [facility] Comment on above: IG% - Immature Granu locytes (promyelocytes, myelocytes and metamyelocytes) > 1% indicates that a LEFT SHIFT is Present. MCH (RBC) [Entitic mass] 26.2 pg 27.0-32.0 [facility] Nucleated RBC/100 WBC (Bld) [Ratio] 0.2 % 0-5 [facility] Laboratory - Microbiology an d Antimicrobial susceptibilityOrdered By: Dr. Hinson on 06-29-2022 Bacteria identified Cx Nom (Bld) No growth in [address] [facility] MCHC Auto (RBC) [Mass/Vol]Or dered By: Dr. Rao on 06-29-2022 MCHC (RBC) [Mass/Vol] 32.1 g/dL 32-36 [facility] No Panel InformationOrdered By: Dr. Rao on 06-29-2022 Estimated Creatinine Clearance Calc 108.46 ml/min [facility] Estimated GFR (MDRD) Amer 125 mL/min >60 [facility] Comment on above: GFR Calc Estimated GFR (MDRD) Non-Af Amer 103 mL/min >60 [facility] Comment on above: Non- GFR Calc Platelets bldOrdered By: Dr. Rao on 06-29-2022 Platelets (Bld) [#/Vol] 363 10*3/uL 150-450 [facility] Serum or plasma calcium hussein urement (mass/volume)Ordered By: Dr. Rao on 06-29-2022 Calcium [Mass/Vol] 8.4 mg/dL 8.5-10.1 [facility] Serum or plasma creatinine m easurement (mass/volume)Ordered By: Dr. Rao on 06-29-2022 Creatinine [Mass/Vol] 0.71 mg/dL 0.55-1.02 [facility] Comment on above: The validity of the calculated GFR & GFRAA in patients over 70 years has not been determined. Clinical correlation is essential. Serum or plasma urea nitroge n measurement (mass/volume)Ordered By: Dr. Rao on 06-29-2022 Urea nitrogen [Mass/Vol] 13 mg/dL 7-18 [facility] Thin prep Papanicolaou smear with manual screeningOrdered By: Dr. Rao on 06-29-2022 Thin prep Papanicolaou smear with manual screening 7 5-15 [facility] Vancomycin troughOrdered By: Dr. Rao on 06-28-2022 Vancomycin trough [Mass/Vol] 15.6 ug/mL 5.0-15.0 [facility] Comment on above: VANCOMYCIN STANDARED DRUG THERAPY TROUGH LEVEL: 5.0 - 15.0 mg/L VANCOMYCIN HIGH INTENSITY THERAPY TROUGH LEVEL: 15.0 - 20.0 mg/L High Intensity therapy recommended for serious lifethreatening infections include:- Fxjrlkufkq-Cbadvjfhgcwx-Brkdzyhhk (Ventilator/Healtcare Associated)-Sepsis PLEASE CONTACT PHARMACY SERVICES (#[id number]) FOR INTERPRETATIONOF RESULTS. Bacteria identified Cx Nom ( Wound)Ordered By: Dr. Matias on 06-26-2022 Wound Culture Streptococcus agalactiae (B) [facility] Culture, urineOrdered By: Dr Marine Hinson on 06-26-2022 Bacteria identified Cx Nom (U) Culture exhibits no growth. [facility] Laboratory - Chemistry and C hemistry - challengeOrdered By: Dr. Morton on 06-26-2022 HCG ( test) Ql (U) Negative [facility] Comment on above: Very dilute urine sp ecimens, as indicated by a low specificgravity, may not contain business representative levels of hCG. If is still suspected, a first morning urinespecimen should be collected 48 hours later and tested. Absolute lymphocyte counton 06-25-2022 Lymphocytes Auto (Unsp spec) [#/Vol] 3.27 10*3/uL 0.83-4.51 [facility] Work Phone: Basophil percentageon 2021 Basophils/100 WBC (Bld) 0.7 % 0-1 [facility] Work Phone: Chloride [Moles/Vol] 104 mmol/L 98-107 [facility] Work Phone: Eosinophils/100 WBC (Bld) 1.2 % 0-5 [facility] Work Phone: Glucose [Mass/Vol] 261 mg/dL 74-106 [facility] Work Phone: Comment on above: Glucose result great er than or equal to 200 mg/dLsuggests DIABETES MELLITUS per A.D.A. criteria. Neutrophils (Bld) [#/Vol] 4.8 10*3/uL 2.0-7.7 [facility] Work Phone: Neutrophils/100 WBC (Bld) 53.1 % 47-70 [facility] Work Phone: Potassium [Moles/Vol] 4.3 mmol/L 3.5-5.1 [facility] Work Phone: [phone] Sodium [Moles/Vol] 135 mmol/L 136-145 [facility] Work Phone: WBC (Bld) [#/Vol] 9.0 10*3/uL 4.4-11.0 [facility] Work Phone: Blood erythrocytes count (nu mber/volume)on 06-25-2022 RBC (Bld) [#/Vol] 4.62 10*6/uL 4.2-5.4 [facility]: Blood hemoglobin measurement (mass/volume)on 06-25-2022 Hemoglobin (Bld) [Mass/Vol] 12.1 g/dL 12.0-15.0 [facility] Work Phone: Blood lymphocytes/100 leukoc yteson 06-25-2022 Lymphocytes/100 WBC (Bld) 36.4 % 19-41 [facility] Work Phone: Blood monocytes/100 leukocyt eson 06-25-2022 Monocytes/100 WBC (Bld) 7.0 % 0-10 [facility] Work Phone: Blood platelet mean volumeon 06-25-2022 Platelet mean volume (Bld) [Entitic vol] 9.5 fL 6.2-12.0 [facility] Work Phone: Determination of erythrocyte mean corpuscular volume (MCV)on 06-25-2022 MCV (RBC) [Entitic vol] 82.0 fL 81-99 [facility] Work Phone: Glucose Glucometer (BldC) [M ass/Vol]on 06-25-2022 Glucose [Mass/Vol] 263 mg/dL 74-106 [facility] Work Phone: [phone] Comment on above: MANAGEMENT OF PATIEN T CARE PER NURSING PROTOCOL Hematocrit Auto (Bld) [Volum e fraction]on 06-25-2022 Hematocrit (Bld) [Volume fraction] 37.9 % 37-47 [facility] Work Phone: [phone] Laboratory - Chemistry and C hemistry - challengeon 06-25-2022 CO2 [Moles/Vol] 24.0 mmol/L 21.0-32.0 [facility] Work Phone: [phone] Urea nitrogen/Creatinine [Mass ratio] 13.1 mg/mg 10-20 [facility] Work Phone: [phone] Laboratory - Hematology and Cell countson 06-25-2022 Erythrocyte distribution width (RBC) [Entitic vol] 41.4 fL 35.1-43.9 [facility] Work Phone: [phone] Erythrocyte distribution width (RBC) [Ratio] 14.1 % 11.6-14.6 [facility] Work Phone: [phone] Immature granulocytes/100 WBC (Bld) 1.600 % 0.0-0.9 [facility] Work Phone: [phone] Comment on above: IG% - Immature Granu locytes (promyelocytes, myelocytes and metamyelocytes) > 1% indicates that a LEFT SHIFT is Present. MCH (RBC) [Entitic mass] 26.2 pg 27.0-32.0 [facility] Work Phone: [phone] Nucleated RBC/100 WBC (Bld) [Ratio] 0 % 0-5 [facility] Work Phone: [phone] MCHC Auto (RBC) [Mass/Vol]on 06-25-2022 MCHC (RBC) [Mass/Vol] 31.9 g/dL 32-36 [facility] Work Phone: [phone] No Panel Informationon 06-25 Estimated Creatinine Clearance Calc 101.33 ml/min [facility] Work Phone: [phone] Estimated GFR (MDRD) Amer 114 mL/min >60 [facility] Work Phone: Comment on above: GFR Calc Estimated GFR (MDRD) Non-Af Amer 95 mL/min >60 [facility] Work Phone: Comment on above: Non- GFR Calc Platelets bldon 06-25-2022 Platelets (Bld) [#/Vol] 353 10*3/uL 150-450 [facility] Work Phone: Serum or plasma calcium hussein urement (mass/volume)on 06-25-2022 Calcium [Mass/Vol] 8.6 mg/dL 8.5-10.1 [facility] Work Phone: Serum or plasma creatinine m easurement (mass/volume)on 06-25-2022 Creatinine [Mass/Vol] 0.76 mg/dL 0.55-1.02 [facility] Work Phone: Comment on above: The validity of the calculated GFR & GFRAA in patients over 70 years has not been determined. Clinical correlation is essential. Serum or plasma urea nitroge n measurement (mass/volume)on 06-25-2022 Urea nitrogen [Mass/Vol] 10 mg/dL 7-18 [facility] Work Phone: Thin prep Papanicolaou smear with manual screeningon 06-25-2022 Thin prep Papanicolaou smear with manual screening 7 -15 [facility] Work Phone: Absolute lymphocyte counton 06-24-2022 Lymphocytes Auto (Unsp spec) [#/Vol] 3.15 10*3/uL 0.83-4.51 [facility] Work Phone: Basophil percentageOrdered B y: Dr. Hinson on 06-24-2022 Lactate [Moles/Vol] 3.0 mmol/L 0.4-2.0 [facility] Comment on above: Critical Result(s) C alled at: 18:06:09 06/24/2022 by: LUIS E VALENZUELA.TO SIVA JANG4 RN MS-3 Results read back by same. Basophil percentage 0 SEEN /hpf 0-5 [facility] Bilirubin [Mass/Vol] 0.30 mg/dL 0.20-1.00 [facility] Comment on above: For patients on eltr ombopag therapy, use of [employer] TBIL is not recommended. Protein [Mass/Vol] 8.0 g/dL 6.4-8.2 [facility] Basophil percentageon 2021 Basophils/100 WBC (Bld) 0.5 % 0-1 [facility] Work Phone: Chloride [Moles/Vol] 104 mmol/L 98-107 [facility] Work Phone: [phone] Eosinophils/100 WBC (Bld) 0.7 % 0-5 [facility] Work Phone: Glucose [Mass/Vol] 318 mg/dL 74-106 [facility] Work Phone: Comment on above: Glucose result great er than or equal to 200 mg/dLsuggests DIABETES MELLITUS per A.D.A. criteria. Lactate [Moles/Vol] 4.8 mmol/L 0.4-2.0 [facility] Work Phone: Comment on above: Critical Result(s) C alled at: 13:11:31 06/24/2022 by: Gayathri Edmond. Results read back by same. Neutrophils (Bld) [#/Vol] 5.1 10*3/uL 2.0-7.7 [facility] Work Phone: Neutrophils/100 WBC (Bld) 56.2 % 47-70 [facility] Work Phone: Potassium [Moles/Vol] 3.9 mmol/L 3.5-5.1 [facility] Work Phone: Sodium [Moles/Vol] 138 mmol/L 136-145 [facility] Work Phone: [phone] WBC (Bld) [#/Vol] 9.1 10*3/uL 4.4-11.0 [facility] Work Phone: Bilirubin Test strip Ql (U)O rdered By: Dr. Hinson on 06-24-2022 Bilirubin Ql (U) Negative Negative [facility] Blood erythrocytes count (nu mber/volume)on 06-24-2022 RBC (Bld) [#/Vol] 4.73 10*6/uL 4.2-5.4 [facility] Work Phone: Blood hemoglobin measurement (mass/volume)on 06-24-2022 Hemoglobin (Bld) [Mass/Vol] 12.8 g/dL 12.0-15.0 [facility] Work Phone: Blood lymphocytes/100 leukoc yteson 06-24-2022 Lymphocytes/100 WBC (Bld) 34.6 % 19-41 [facility] Work Phone: Blood monocytes/100 leukocyt eson 06-24-2022 Monocytes/100 WBC (Bld) 6.8 % 0-10 [facility] Work Phone: Blood platelet mean volumeon 06-24-2022 Platelet mean volume (Bld) [Entitic vol] 9.3 fL 6.2-12.0 [facility] Work Phone: Determination of erythrocyte mean corpuscular volume (MCV)on 06-24-2022 MCV (RBC) [Entitic vol] 81.2 fL 81-99 [facility] Work Phone: Gram stain for investigation of transfusion reactionOrdered By: Dr. Matias on 06-24-2022 Microscopic observation Gram stain Nom (Unsp spec) [facility] Hematocrit Auto (Bld) [Volum e fraction]on 06-24-2022 Hematocrit (Bld) [Volume fraction] 38.4 % 37-47 [facility] Work Phone: Ketones Test strip Ql (U)Ord ered By: Dr. Hinson on 06-24-2022 Ketones Ql (U) 15 mg/dl Negative [facility] Laboratory - Chemistry and C hemistry - challengeOrdered By: Dr. Hinson on 06-24-2022 ALP [Catalytic activity/Vol] 76 U/L 45-117 [facility] ALT [Catalytic activity/Vol] 22 U/L 13-56 [facility] Globulin (S) [Mass/Vol] 5.2 g/dL 2.2-4.2 [facility] Laboratory - Chemistry and C hemistry - challengeon 06-24-2022 CO2 [Moles/Vol] 28.0 mmol/L 21.0-32.0 [facility] Work Phone: Urea nitrogen/Creatinine [Mass ratio] 13.8 mg/mg 10-20 [facility] Work Phone: Laboratory - Hematology and Cell countson 06-24-2022 Erythrocyte distribution width (RBC) [Entitic vol] 41.3 fL 35.1-43.9 [facility] Work Phone: Erythrocyte distribution width (RBC) [Ratio] 14.2 % 11.6-14.6 [facility] Work Phone: Immature granulocytes/100 WBC (Bld) 1.200 % 0.0-0.9 [facility] Work Phone: Comment on above: IG% - Immature Granu locytes (promyelocytes, myelocytes and metamyelocytes) > 1% indicates that a LEFT SHIFT is Present. MCH (RBC) [Entitic mass] 27.1 pg 27.0-32.0 [facility] Work Phone: Nucleated RBC/100 WBC (Bld) [Ratio] 0 % 0-5 [facility] Work Phone: MCHC Auto (RBC) [Mass/Vol]on 06-24-2022 MCHC (RBC) [Mass/Vol] 33.3 g/dL 32-36 [facility] Work Phone: Mucus LM Ql (Urine sed)Order ed By: Dr. Hinson on 06-24-2022 Mucus Ql (Urine sed) 0 SEEN /hpf [facility] Nitrite Test strip Ql (U)Ord ered By: Dr. Hinson on 06-24-2022 Nitrite Ql (U) Negative Negative [facility] No Panel Informationon 06-24 Estimated Creatinine Clearance Calc 96.26 ml/min [facility] Work Phone: Estimated GFR (MDRD) Amer 109 mL/min >60 [facility] Work Phone: Comment on above: GFR Calc Estimated GFR (MDRD) Non-Af Amer 90 mL/min >60 [facility] Work Phone: Comment on above: Non- GFR Calc Platelets bldon 06-24-2022 Platelets (Bld) [#/Vol] 345 10*3/uL 150-450 [facility] Work Phone: Protein Test strip Ql (U)Ord ered By: Dr. Hinson on 06-24-2022 Protein Ql (U) 15 mg/dl Negative [facility] Serum or plasma albumin hussein urement (mass/volume)Ordered By: Dr. Hinson on 06-24-2022 Albumin [Mass/Vol] 2.8 g/dL 3.2-5.0 [facility] Serum or plasma albumin/glob ulin mass ratioOrdered By: Dr. Hinson on 06-24-2022 Albumin/Globulin [Mass ratio] 0.5 {ratio} 0.9-2.4 [facility] Serum or plasma calcium hussein urement (mass/volume)on 06-24-2022 Calcium [Mass/Vol] 9.1 mg/dL 8.5-10.1 [facility] Work Phone: Serum or plasma creatinine m easurement (mass/volume)on 06-24-2022 Creatinine [Mass/Vol] 0.80 mg/dL 0.55-1.02 [facility] Work Phone: Comment on above: The validity of the calculated GFR & GFRAA in patients over 72 years has not been determined. Clinical correlation is essential. Serum or plasma urea nitroge n measurement (mass/volume)on 06-24-2022 Urea nitrogen [Mass/Vol] 11 mg/dL 7-18 [facility] Work Phone: Squamous epithelial cells de tection in urine sediment by light microscopyOrdered By: Dr. Hinson on 06-24-2022 Epithelial cells.squamous LM Ql (Urine sed) 5-10 SEEN /hpf 5-10 [facility] Thin prep Papanicolaou smear with manual screeningOrdered By: Dr. Hinson on 06-24-2022 Thin prep Papanicolaou smear with manual screening 10 U/L 15-37 [facility] Thin prep Papanicolaou smear with manual screeningon 06-24-2022 Thin prep Papanicolaou smear with manual screening 6 5-15 [facility] Work Phone: Urine blood detectionOrdered By: Dr. Hinson on 06-24-2022 RBC Ql (U) 25 /ul Negative [facility] RBC Ql (U) 10-25 SEEN /hpf 0-5 [facility] Urine clarityOrdered By: Dr. Hinson on 06-24-2022 Clarity (U) Sl. Cloudy Clear [facility] Urine color determinationOrd ered By: Dr. Hinson on 06-24-2022 Color (U) Yellow Yellow [facility] Urine glucose detectionOrder ed By: Dr. Hinson on 06-24-2022 Glucose Ql (U) 1000 mg/dl Normal [facility] Urine leukocyte esterase det ection by dipstickOrdered By: Dr. Hinson on 06-24-2022 Leukocyte esterase Test strip Ql (U) Negative Negative [facility] Urine pHOrdered By: Dr. Vonda aden on 06-24-2022 pH (U) 5.0 [pH] 5.0 - 8.0 [facility] Urine sediment bacteria coun t by microscopy (number/high power field)Ordered By: Dr. Hinson on 06-24-2022 Bacteria LM.HPF (Urine sed) [#/Area] RARE /hpf None Seen [facility] Urine specific gravity measu rementOrdered By: Dr. Hinson on 06-24-2022 Specific gravity (U) [Rel density] 1.025 1.002-1.030 [facility] Urobilinogen Auto test strip Ql (U)Ordered By: Dr. Hinson on 06-24-2022 Urobilinogen Ql (U) Normal mg/dl Normal [facility] Whole blood hemoglobin A1c/t otal hemoglobin ratio (mass fraction)Ordered By: Dr. Rao on 06-24-2022 HbA1c (Bld) [Mass fraction] 10.6 % 3.8-5.6 [facility] Comment on above: Normal < 5.7 % Predi abetic 5.7 - 6.4 % Diabetic >or= 6.5 % Please note range changes. No Panel InformationOrdered By: Dr. Matias on 06-23-2022 Methicillin-Resist S.aureus DNA PCR Positive Negative [facility] Staphylococcus aureus DNA de tection by probe and target amplification methodOrdered By: Dr. Matias on 06-23-2022 S. aureus DNA REBECCA+probe Ql (Unsp spec) Positive Negative [facility] Absolute lymphocyte countOrd ered By: Dr. Matias on 05-07-2022 Lymphocytes Auto (Unsp spec) [#/Vol] 0.99 10*3/uL 0.83-4.51 [facility] Comment on above: Previous reported re sult: 5.07 X10^3/uLEdited by: BHUPINDER on 05/07/22:1437 AMENDED REPORT 05/07/221436 Absolute Lymph previously reported as: 5.07 H X10^3/uL Basophil percentageOrdered B y: Dr. Matias on 05-07-2022 Basophil percentage [employer] [facility] Comment on above: Previous reported re sult: 43.3 %Edited by: BHUPINDER on 05/07/22:1430 AMENDED REPORT 05/07/221429 NEUT% previously reported as: 43.3 L % Previous reported re sult: 3.7 %Edited by: BHUPINDER on 05/07/22:1430 AMENDED REPORT 05/07/22 143 EO% previously reported as: 3.7 % Previous reported re sult: 0.6 %Edited by: BHUPINDER on 05/07/22:1430 AMENDED REPORT 05/07/221429 BASO% previously reported as: 0.6 % Bilirubin [Mass/Vol] 0.20 mg/dL 0.20-1.00 [facility] Comment on above: For patients on eltr ombopag therapy, use of [employer] TBIL is not recommended. Chloride [Moles/Vol] 101 mmol/L 98-107 [facility] Glucose [Mass/Vol] 207 mg/dL 74-106 [facility] Comment on above: Glucose result great er than or equal to 200 mg/dLsuggests DIABETES MELLITUS per A.D.A. criteria. Neutrophils (Bld) [#/Vol] 8.8 10*3/uL 2.0-7.7 [facility] Comment on above: Previous reported re sult: 4.8 X10^3/uLEdited by: BHUPINDER on 05/07/22:1436 AMENDED REPORT 05/07/22 143 Absolute Neut previously reported as: 4.8 X10^3/uL Potassium [Moles/Vol] 4.0 mmol/L 3.5-5.1 [facility] Protein [Mass/Vol] 8.4 g/dL 6.4-8.2 [facility] Sodium [Moles/Vol] 134 mmol/L 136-145 [facility] WBC (Bld) [#/Vol] 11.1 10*3/uL 4.4-11.0 [facility] Blood band neutrophil count as percentage of total leukocytesOrdered By: Dr. Matisa on 05-07-2022 Band form neutrophils/100 WBC (Bld) 6 % 0-5 [facility] Blood erythrocytes count (nu mber/volume)Ordered By: Dr. Matias on 05-07-2022 RBC (Bld) [#/Vol] 4.81 10*6/uL 4.2-5.4 [facility] Blood hemoglobin measurement (mass/volume)Ordered By: Dr. Matias on 05-07-2022 Hemoglobin (Bld) [Mass/Vol] 13.0 g/dL 12.0-15.0 [facility] Blood lymphocytes/100 leukoc ytesOrdered By: Dr. Matias on 05-07-2022 Lymphocytes/100 WBC (Bld) [employer] [facility] Comment on above: Previous reported re sult: 45.7 %Edited by: BHUPINDER on 05/07/22:1430 AMENDED REPORT 05/07/221429 LY% previously reported as: 45.7 H % Lymphocytes/100 WBC (Bld) 9 % 19-41 [facility] Blood monocytes/100 leukocyt esOrdered By: Dr. Matias on 05-07-2022 Monocytes/100 WBC (Bld) [employer] [facility] Comment on above: Previous reported re sult: 5.2 %Edited by: BHUPINDER on 05/07/22:1430 AMENDED REPORT 05/07/22 1430 MONO% previously reported as: 5.2 % Monocytes/100 WBC (Bld) 12 % 0-10 [facility] Blood platelet mean volumeOr dered By: Dr. Matias on 05-07-2022 Platelet mean volume (Bld) [Entitic vol] 9.0 fL 6.2-12.0 [facility] Blood platelet morphology de termination (nominal result)Ordered By: Dr. Matias on 05-07-2022 Platelet morphology finding Nom (Bld) LARGE [facility] Blood segmented neutrophils/ [address]: [address] Matias on 05-07-2022 Segmented neutrophils/100 WBC (Bld) 73 % 47-70 [facility] Determination of erythrocyte mean corpuscular volume (MCV)Ordered By: Dr. Matias on 05-07-2022 MCV (RBC) [Entitic vol] 81.3 fL 81-99 [facility] Hematocrit Auto (Bld) [Volum e fraction]Ordered By: Dr. Mtaias on 05-07-2022 Hematocrit (Bld) [Volume fraction] 39.1 % 37-47 [facility] Laboratory - Chemistry and C hemistry - challengeOrdered By: Dr. Matias on 05-07-2022 ALP [Catalytic activity/Vol] 76 U/L 45-117 [facility] ALT [Catalytic activity/Vol] 23 U/L 13-56 [facility] CO2 [Moles/Vol] 25.0 mmol/L 21.0-32.0 [facility] Globulin (S) [Mass/Vol] 5.0 g/dL 2.2-4.2 [facility] Urea nitrogen/Creatinine [Mass ratio] 17.4 mg/mg 10-20 [facility] Laboratory - Hematology and Cell countsOrdered By: Dr. Matias on 05-07-2022 Erythrocyte distribution width (RBC) [Entitic vol] 41.1 fL 35.1-43.9 [facility] Erythrocyte distribution width (RBC) [Ratio] 14.0 % 11.6-14.6 [facility] MCH (RBC) [Entitic mass] 27.0 pg 27.0-32.0 [facility] Nucleated RBC/100 WBC (Bld) [Ratio] 0 % 0-5 [facility] MCHC Auto (RBC) [Mass/Vol]Or dered By: Dr. Matias on 05-07-2022 MCHC (RBC) [Mass/Vol] 33.2 g/dL 32-36 [facility] No Panel InformationOrdered By: Dr. Matias on 05-07-2022 Atypical Lymphocytes RARE % [facility] Estimated GFR (MDRD) Amer 99 mL/min >60 [facility] Comment on above: GFR Calc Estimated GFR (MDRD) Non-Af Amer 82 mL/min >60 [facility] Comment on above: Non- GFR Calc Immature Granulocyte % (Auto) [employer] [facility] Comment on above: Previous reported re sult: 1.500 %Edited by: BHUPINDER on 05/07/22:1431 AMENDED REPORT 05/07/22 1431 IM GRAN % previously reported as: 1.500 H % IG% - Immature Granulocytes (promyelocytes, myelocytes and metamyelocytes) > 1% indicates that a LEFT SHIFT is Present. Platelets bldOrdered By: Dr. Matias on 05-07-2022 Platelets (Bld) [#/Vol] 369 10*3/uL 150-450 [facility] RBC morphologyOrdered By: Dr Marine Matias on 05-07-2022 RBC morphology finding Nom (Bld) NORM C+C NORMAL NORM C&C [facility] Review by pathologiston 04-12 Pathologist review Franky (Unsp spec) [Interp] Zahraa waite [facility] Work Phone: Review by pathologistOrdered By: Dr. Matias on 05-07-2022 Pathologist review Franky (Unsp spec) [Interp] Reviewed [facility] Comment on above: Previous reported re sult: Zahraa waite Edited by: EZ on 05/08/22:1553Neutrophilic leukocytosis.Clinical correlation suggested.Franki Glez D.O. 05/08/22 AMENDED REPORT 05/08/22 1553 PATH REV previously reported as: November foll Serum or plasma albumin hussein urement (mass/volume)Ordered By: Dr. Matias on 05-07-2022 Albumin [Mass/Vol] 3.4 g/dL 3.2-5.0 [facility] Serum or plasma albumin/glob ulin mass ratioOrdered By: Dr. Matias on 05-07-2022 Albumin/Globulin [Mass ratio] 0.7 {ratio} 0.9-2.4 [facility] Serum or plasma calcium hussein urement (mass/volume)Ordered By: Dr. Matias on 05-07-2022 Calcium [Mass/Vol] 8.7 mg/dL 8.5-10.1 [facility] Serum or plasma creatinine m easurement (mass/volume)Ordered By: Dr. Matias on 05-07-2022 Creatinine [Mass/Vol] 0.86 mg/dL 0.55-1.02 [facility] Comment on above: The validity of the calculated GFR & GFRAA in patients over 70 years has not been determined. Clinical correlation is essential. Serum or plasma urea nitroge n measurement (mass/volume)Ordered By: Dr. Matias on 05-07-2022 Urea nitrogen [Mass/Vol] 15 mg/dL 7-18 [facility] Thin prep Papanicolaou smear with manual screeningOrdered By: Dr. Matias on 05-07-2022 Thin prep Papanicolaou smear with manual screening 10 U/L 15-37 [facility] Thin prep Papanicolaou smear with manual screening 8 5-15 [facility] Basophil percentageOrdered B y: [facility] on 04-20-2022 Chloride [Moles/Vol] 104 mmol/L 98-107 [facility] Glucose [Mass/Vol] 224 mg/dL 74-106 [facility] Comment on above: Glucose result great er than or equal to 200 mg/dLsuggests DIABETES MELLITUS per A.D.A. criteria. Potassium [Moles/Vol] 3.7 mmol/L 3.5-5.1 [facility] Sodium [Moles/Vol] 139 mmol/L 136-145 [facility] WBC (Bld) [#/Vol] 9.3 10*3/uL 4.4-11.0 [facility] Blood erythrocytes count (nu mber/volume)Ordered By: [facility] on 04-20-2022 RBC (Bld) [#/Vol] 3.93 10*6/uL 4.2-5.4 [facility] Blood hemoglobin measurement (mass/volume)Ordered By: [facility] on 04-20-2022 Hemoglobin (Bld) [Mass/Vol] 10.4 g/dL 12.0-15.0 [facility] Blood platelet mean volumeOr dered By: [facility] on 04-20-2022 Platelet mean volume (Bld) [Entitic vol] 9.6 fL 6.2-12.0 [facility] Determination of erythrocyte mean corpuscular volume (MCV)Ordered By: [facility] on 04-20-2022 MCV (RBC) [Entitic vol] 83.7 fL 81-99 [facility] Erythrocyte sedimentation ra teOrdered By: [facility] on 04-20-2022 ESR (Bld) [Velocity] 60 mm/h 0-30 [facility] Hematocrit Auto (Bld) [Volum e fraction]Ordered By: [facility] on 04-20-2022 Hematocrit (Bld) [Volume fraction] 32.9 % 37-47 [facility] Laboratory - Chemistry and C hemistry - challengeOrdered By: [facility] on 04-20-2022 CO2 [Moles/Vol] 28.0 mmol/L 21.0-32.0 [facility] Urea nitrogen/Creatinine [Mass ratio] 16.3 mg/mg 10-20 [facility] Laboratory - Hematology and Cell countsOrdered By: [facility] on 04-20-2022 Erythrocyte distribution width (RBC) [Entitic vol] 41.4 fL 35.1-43.9 [facility] Erythrocyte distribution width (RBC) [Ratio] 13.5 % 11.6-14.6 [facility] MCH (RBC) [Entitic mass] 26.5 pg 27.0-32.0 [facility] MCHC Auto (RBC) [Mass/Vol]Or dered By: [facility] on 04-20-2022 MCHC (RBC) [Mass/Vol] 31.6 g/dL 32-36 [facility] No Panel InformationOrdered By: [facility] on 04-20-2022 Estimated GFR (MDRD) Amer 147 mL/min >60 [facility] Comment on above: GFR Calc Estimated GFR (MDRD) Non-Af Amer 122 mL/min >60 [facility] Comment on above: Non- GFR Calc Platelets bldOrdered By: [facility] on 04-20-2022 Platelets (Bld) [#/Vol] 509 10*3/uL 150-450 [facility] Serum or plasma calcium hussein urement (mass/volume)Ordered By: [facility] on 04-20-2022 Calcium [Mass/Vol] 8.5 mg/dL 8.5-10.1 [facility] Serum or plasma creatinine m easurement (mass/volume)Ordered By: [facility] on 04-20-2022 Creatinine [Mass/Vol] 0.61 mg/dL 0.55-1.02 [facility] Comment on above: The validity of the calculated GFR & GFRAA in patients over 70 years has not been determined. Clinical correlation is essential. Serum or plasma urea nitroge n measurement (mass/volume)Ordered By: [facility] on 04-20-2022 Urea nitrogen [Mass/Vol] 10 mg/dL 7-18 [facility] Thin prep Papanicolaou smear with manual screeningOrdered By: [facility] on 04-20-2022 Thin prep Papanicolaou smear with manual screening 7 5-15 [facility] Vancomycin troughOrdered By: [facility] on 04-20-2022 Vancomycin trough [Mass/Vol] 7.2 ug/mL 5.0-15.0 [facility] Comment on above: VANCOMYCIN STANDARED DRUG THERAPY TROUGH LEVEL: 5.0 - 15.0 mg/L VANCOMYCIN HIGH INTENSITY THERAPY TROUGH LEVEL: 15.0 - 20.0 mg/L High Intensity therapy recommended for serious lifethreatening infections include:- Anlwsfugae-Mmsrmwupawjq-Seyrwexjv (Ventilator/Healtcare Associated)-Sepsis PLEASE CONTACT PHARMACY SERVICES (#[id number]) FOR INTERPRETATIONOF RESULTS. Basophil percentageon 2021 Chloride [Moles/Vol] 103 mmol/L 98-107 [facility] Work Phone: [phone] Glucose [Mass/Vol] 188 mg/dL 74-106 [facility] Work Phone: [phone] Comment on above: Fasting Glucose resu lt greater than or equal to 126 mg/dL suggests DIABETES MELLITUS per A.D.A. criteria. Potassium [Moles/Vol] 4.3 mmol/L 3.5-5.1 [facility] Work Phone: [phone] Sodium [Moles/Vol] 137 mmol/L 136-145 [facility] Work Phone: [phone] WBC (Bld) [#/Vol] 10.0 10*3/uL 4.4-11.0 [facility] Work Phone: [phone] Blood erythrocytes count (nu mber/volume)on 04-13-2022 RBC (Bld) [#/Vol] 4.32 10*6/uL 4.2-5.4 [facility] Work Phone: [phone] Blood hemoglobin measurement (mass/volume)on 04-13-2022 Hemoglobin (Bld) [Mass/Vol] 11.5 g/dL 12.0-15.0 [facility] Work Phone: [phone] Blood platelet mean volumeon 04-13-2022 Platelet mean volume (Bld) [Entitic vol] 9.2 fL 6.2-12.0 [facility] Work Phone: [phone] Determination of erythrocyte mean corpuscular volume (MCV)on 04-13-2022 MCV (RBC) [Entitic vol] 84.7 fL 81-99 [facility] Work Phone: [phone] Erythrocyte sedimentation ra abeba 04-13-2022 ESR (Bld) [Velocity] 90 mm/h 0-30 [facility] Work Phone: [phone] Hematocrit Auto (Bld) [Volum e fraction]on 04-13-2022 Hematocrit (Bld) [Volume fraction] 36.6 % 37-47 [facility] Work Phone: [phone] Laboratory - Chemistry and C hemistry - challengeon 04-13-2022 CO2 [Moles/Vol] 25.0 mmol/L 21.0-32.0 [facility] Work Phone: [phone] Urea nitrogen/Creatinine [Mass ratio] 18.8 mg/mg 10-20 [facility] Work Phone: [phone] Laboratory - Hematology and Cell countson 04-13-2022 Erythrocyte distribution width (RBC) [Entitic vol] 41.8 fL 35.1-43.9 [facility] Work Phone: [phone] Erythrocyte distribution width (RBC) [Ratio] 13.4 % 11.6-14.6 [facility] Work Phone: [phone] MCH (RBC) [Entitic mass] 26.6 pg 27.0-32.0 [facility] Work Phone: [phone] MCHC Auto (RBC) [Mass/Vol]on 04-13-2022 MCHC (RBC) [Mass/Vol] 31.4 g/dL 32-36 [facility] Work Phone: No Panel Informationon 04-13 Estimated GFR (MDRD) Amer 128 mL/min >60 [facility] Work Phone: Comment on above: GFR Calc Estimated GFR (MDRD) Non-Af Amer 106 mL/min >60 [facility] Work Phone: Comment on above: Non- GFR Calc Platelets bldon 04-13-2022 Platelets (Bld) [#/Vol] 609 10*3/uL 150-450 [facility] Work Phone: [phone] Serum or plasma calcium hussein urement (mass/volume)on 04-13-2022 Calcium [Mass/Vol] 9.4 mg/dL 8.5-10.1 [facility] Work Phone: [phone] Serum or plasma creatinine m easurement (mass/volume)on 04-13-2022 Creatinine [Mass/Vol] 0.69 mg/dL 0.55-1.02 [facility] Work Phone: [phone] Comment on above: The validity of the calculated GFR & GFRAA in patients over 70 years has not been determined. Clinical correlation is essential. Serum or plasma urea nitroge n measurement (mass/volume)on 04-13-2022 Urea nitrogen [Mass/Vol] 13 mg/dL 7-18 [facility] Work Phone: [phone] Thin prep Papanicolaou smear with manual screeningon 04-13-2022 Thin prep Papanicolaou smear with manual screening 9 5-15 [facility] Work Phone: [phone] Vancomycin troughon 04-13-20 Vancomycin trough [Mass/Vol] 19.3 ug/mL 5.0-15.0 [facility] Work Phone: Comment on above: VANCOMYCIN STANDARED DRUG THERAPY TROUGH LEVEL: 5.0 - 15.0 mg/L VANCOMYCIN HIGH INTENSITY THERAPY TROUGH LEVEL: 15.0 - 20.0 mg/L High Intensity therapy recommended for serious lifethreatening infections include:- Bsaqtsmxuq-Dfjrpfmqfihs-Cyostqegb (Ventilator/Healtcare Associated)-Sepsis PLEASE CONTACT PHARMACY SERVICES (#[id number]) FOR INTERPRETATIONOF RESULTS. Basophil percentageon 2021 Chloride [Moles/Vol] 100 mmol/L 98-107 [facility] Work Phone: Cholesterol [Mass/Vol] 143 mg/dL <200 [facility] Work Phone: Comment on above: <200 mg/dL Desirable 200-240 mg/dL Borderline >240 mg/dL High Risk Glucose [Mass/Vol] 217 mg/dL 74-106 [facility] Work Phone: Comment on above: Glucose result great er than or equal to 200 mg/dLsuggests DIABETES MELLITUS per A.D.A. criteria. Potassium [Moles/Vol] 3.7 mmol/L 3.5-5.1 [facility] Work Phone: [phone] Sodium [Moles/Vol] 137 mmol/L 136-145 [facility] Work Phone: [phone] Triglyceride [Mass/Vol] 170 mg/dL <199 [facility] Work Phone: [phone] Comment on above: The drugs N-Acetylcy steine and Metamizole may falsely depress this assay.Serum Triglycerides Reference Interval Normal <150 mg/dL Borderline high 150 - 199 mg/dL High 200 - 499 mg/dL Very High > or = 500 mg/dL WBC (Bld) [#/Vol] 9.1 10*3/uL 4.4-11.0 [facility] Work Phone: [phone] Blood erythrocytes count (nu mber/volume)on 04-10-2022 RBC (Bld) [#/Vol] 3.85 10*6/uL 4.2-5.4 [facility] Work Phone: [phone] Blood hemoglobin measurement (mass/volume)on 04-10-2022 Hemoglobin (Bld) [Mass/Vol] 10.2 g/dL 12.0-15.0 [facility] Work Phone: [phone] Blood platelet mean volumeon 04-10-2022 Platelet mean volume (Bld) [Entitic vol] 9.1 fL 6.2-12.0 [facility] Work Phone: [phone] Determination of erythrocyte mean corpuscular volume (MCV)on 04-10-2022 MCV (RBC) [Entitic vol] 82.6 fL 81-99 [facility] Work Phone: [phone] Erythrocyte sedimentation ra abeba 04-10-2022 ESR (Bld) [Velocity] 58 mm/h 0-30 [facility] Work Phone: [phone] Hematocrit Auto (Bld) [Volum e fraction]on 04-10-2022 Hematocrit (Bld) [Volume fraction] 31.8 % 37-47 [facility] Work Phone: [phone] Laboratory - Chemistry and C hemistry - challengeon 04-10-2022 CO2 [Moles/Vol] 32.0 mmol/L 21.0-32.0 [facility] Work Phone: [phone] Cobalamin (Vitamin B12) [Mass/Vol] 216 pg/mL 211-911 [facility] Work Phone: [phone] Urea nitrogen/Creatinine [Mass ratio] 22.7 mg/mg 10-20 [facility] Work Phone: [phone] Laboratory - Hematology and Cell countson 04-10-2022 Erythrocyte distribution width (RBC) [Entitic vol] 39.7 fL 35.1-43.9 [facility] Work Phone: [phone] Erythrocyte distribution width (RBC) [Ratio] 13.2 % 11.6-14.6 [facility] Work Phone: [phone] MCH (RBC) [Entitic mass] 26.5 pg 27.0-32.0 [facility] Work Phone: [phone] MCHC Auto (RBC) [Mass/Vol]on 04-10-2022 MCHC (RBC) [Mass/Vol] 32.1 g/dL 32-36 [facility] Work Phone: [phone] No Panel Informationon 04-10 Estimated GFR (MDRD) Amer 146 mL/min >60 [facility] Work Phone: [phone] Comment on above: GFR Calc Estimated GFR (MDRD) Non-Af Amer 120 mL/min >60 [facility] Work Phone: [phone] Comment on above: Non- GFR Calc Vitamin D 25-Hydroxy 18.5 ng/mL [facility] Work Phone: Comment on above: Vitamin D 25(OH) Sta tus Range Deficiency <20 ng/mL (50nmol/L) Insufficiency 20 - 30 ng/mL (50 - 75 nmol/L) Sufficiency 30 - 100 ng/mL (75 - 250 nmol/L) Toxicity >100 ng/mL (>250 nmol/L) Platelets bldon 04-10-2022 Platelets (Bld) [#/Vol] 540 10*3/uL 150-450 [facility] Work Phone: [phone] Serum or plasma calcium hussein urement (mass/volume)on 04-10-2022 Calcium [Mass/Vol] 8.9 mg/dL 8.5-10.1 [facility] Work Phone: [phone] Serum or plasma cholesterol in HDL measurement (mass/volume)on 04-10-2022 Cholesterol in HDL [Mass/Vol] 23 mg/dL >40 [facility] Work Phone: Comment on above: The drugs N-Acetylcy steine and Metamizole may falsely depress this assay. Reference Range HDL <40 mg/dL Low HDL Cholesterol HDL >or= 60 mg/dL High HDL Cholesterol Serum or plasma cholesterol in VLDL measurement (mass/volume)on 04-10-2022 Cholesterol in VLDL [Mass/Vol] 34 mg/dL 5-40 [facility] Work Phone: Serum or plasma creatinine m easurement (mass/volume)on 04-10-2022 Creatinine [Mass/Vol] 0.62 mg/dL 0.55-1.02 [facility] Work Phone: Comment on above: The validity of the calculated GFR & GFRAA in patients over 70 years has not been determined. Clinical correlation is essential. Serum or plasma low density lipoprotein (LDL) cholesterol measurement (mass/volume)on 04-10-2022 Cholesterol in LDL [Mass/Vol] 86 mg/dL 0-130 [facility] Work Phone: Serum or plasma transthyreti n measurement (mass/volume)on 04-10-2022 Prealbumin [Mass/Vol] 11.5 mg/dL 20.0-40.0 [facility] Work Phone: Serum or plasma urea nitroge n measurement (mass/volume)on 04-10-2022 Urea nitrogen [Mass/Vol] 14 mg/dL 7-18 [facility] Work Phone: Thin prep Papanicolaou smear with manual screeningon 04-10-2022 Thin prep Papanicolaou smear with manual screening 5 5-15 [facility] Work Phone: [phone] Absolute lymphocyte counton 04-09-2022 Lymphocytes Auto (Unsp spec) [#/Vol] 2.68 10*3/uL 0.83-4.51 [facility] Work Phone: [phone] Basophil percentageon 2021 Basophils/100 WBC (Bld) 0.8 % 0-1 [facility] Work Phone: Chloride [Moles/Vol] 102 mmol/L 98-107 [facility] Work Phone: Eosinophils/100 WBC (Bld) 3.2 % 0-5 [facility] Work Phone: Glucose [Mass/Vol] 190 mg/dL 74-106 [facility] Work Phone: Comment on above: Fasting Glucose resu lt greater than or equal to 126 mg/dL suggests DIABETES MELLITUS per A.D.A. criteria. Neutrophils (Bld) [#/Vol] 3.7 10*3/uL 2.0-7.7 [facility] Work Phone: Neutrophils/100 WBC (Bld) 49.3 % 47-70 [facility] Work Phone: Potassium [Moles/Vol] 3.6 mmol/L 3.5-5.1 [facility] Work Phone: Sodium [Moles/Vol] 138 mmol/L 136-145 [facility] Work Phone: WBC (Bld) [#/Vol] 7.5 10*3/uL 4.4-11.0 [facility] Work Phone: Blood erythrocytes count (nu mber/volume)on 04-09-2022 RBC (Bld) [#/Vol] 3.73 10*6/uL 4.2-5.4 [facility] Work Phone: Blood hemoglobin measurement (mass/volume)on 04-09-2022 Hemoglobin (Bld) [Mass/Vol] 9.8 g/dL 12.0-15.0 [facility] Work Phone: Blood lymphocytes/100 leukoc yteson 04-09-2022 Lymphocytes/100 WBC (Bld) 35.8 % 19-41 [facility] Work Phone: Blood monocytes/100 leukocyt eson 04-09-2022 Monocytes/100 WBC (Bld) 9.2 % 0-10 [facility] Work Phone: Blood platelet mean volumeon 04-09-2022 Platelet mean volume (Bld) [Entitic vol] 8.8 fL 6.2-12.0 [facility] Work Phone: [phone] Determination of erythrocyte mean corpuscular volume (MCV)on 04-09-2022 MCV (RBC) [Entitic vol] 81.8 fL 81-99 [facility] Work Phone: [phone] Glucose Glucometer (BldC) [M ass/Vol]on 04-09-2022 Glucose [Mass/Vol] 251 mg/dL 74-106 [facility] Work Phone: [phone] Comment on above: MANAGEMENT OF PATIEN T CARE PER NURSING PROTOCOL Glucose [Mass/Vol] 281 mg/dL 74-106 [facility] Work Phone: [phone] Comment on above: MANAGEMENT OF PATIEN T CARE PER NURSING PROTOCOL Hematocrit Auto (Bld) [Volum e fraction]on 04-09-2022 Hematocrit (Bld) [Volume fraction] 30.5 % 37-47 [facility] Work Phone: [phone] Laboratory - Chemistry and C hemistry - challengeon 04-09-2022 CO2 [Moles/Vol] 28.0 mmol/L 21.0-32.0 [facility] Work Phone: [phone] Urea nitrogen/Creatinine [Mass ratio] 17.2 mg/mg 10-20 [facility] Work Phone: [phone] Laboratory - Hematology and Cell countson 04-09-2022 Erythrocyte distribution width (RBC) [Entitic vol] 38.9 fL 35.1-43.9 [facility] Work Phone: [phone] Erythrocyte distribution width (RBC) [Ratio] 13.0 % 11.6-14.6 [facility] Work Phone: [phone] Immature granulocytes/100 WBC (Bld) 1.700 % 0.0-0.9 [facility] Work Phone: [phone] Comment on above: IG% - Immature Granu locytes (promyelocytes, myelocytes and metamyelocytes) > 1% indicates that a LEFT SHIFT is Present. MCH (RBC) [Entitic mass] 26.3 pg 27.0-32.0 [facility] Work Phone: Nucleated RBC/100 WBC (Bld) [Ratio] 0 % 0-5 [facility] Work Phone: MCHC Auto (RBC) [Mass/Vol]on 04-09-2022 MCHC (RBC) [Mass/Vol] 32.1 g/dL 32-36 [facility] Work Phone: No Panel Informationon 04-09 Estimated Creatinine Clearance Calc 120.32 ml/min [facility] Work Phone: [phone] Estimated GFR (MDRD) Amer 140 mL/min >60 [facility] Work Phone: [phone] Comment on above: GFR Calc Estimated GFR (MDRD) Non-Af Amer 116 mL/min >60 [facility] Work Phone: Comment on above: Non- GFR Calc Platelets bldon 04-09-2022 Platelets (Bld) [#/Vol] 478 10*3/uL 150-450 [facility] Work Phone: Serum or plasma calcium hussein urement (mass/volume)on 04-09-2022 Calcium [Mass/Vol] 8.7 mg/dL 8.5-10.1 [facility] Work Phone: Serum or plasma creatinine m easurement (mass/volume)on 04-09-2022 Creatinine [Mass/Vol] 0.64 mg/dL 0.55-1.02 [facility] Work Phone: Comment on above: The validity of the calculated GFR & GFRAA in patients over 70 years has not been determined. Clinical correlation is essential. Serum or plasma urea nitroge n measurement (mass/volume)on 04-09-2022 Urea nitrogen [Mass/Vol] 11 mg/dL 7-18 [facility] Work Phone: [phone] Thin prep Papanicolaou smear with manual screeningon 04-09-2022 Thin prep Papanicolaou smear with manual screening 8 5-15 [facility] Work Phone: [phone] Blood manual differential co mment interpretation (narrative result)on 04-08-2022 Manual differential comment Franky (Bld) [Interp] SCANNED [facility] Work Phone: Blood platelet adequacy dete ction by light microscopyon 04-08-2022 Platelets LM Ql (Bld) ADEQUATE ADEQ [facility] Work Phone: Vancomycin troughon 04-08-20 Vancomycin trough [Mass/Vol] 10.2 ug/mL 5.0-15.0 [facility] Work Phone: Comment on above: VANCOMYCIN STANDARED DRUG THERAPY TROUGH LEVEL: 5.0 - 15.0 mg/L VANCOMYCIN HIGH INTENSITY THERAPY TROUGH LEVEL: 15.0 - 20.0 mg/L High Intensity therapy recommended for serious lifethreatening infections include:- Pgylijhcls-Lotujyqehybx-Yzxtdmzab (Ventilator/Healtcare Associated)-Sepsis PLEASE CONTACT PHARMACY SERVICES (#[id number]) FOR INTERPRETATIONOF RESULTS. Basophil percentageon 2021 Bilirubin [Mass/Vol] 0.70 mg/dL 0.20-1.00 [facility] Work Phone: Comment on above: For patients on eltr ombopag therapy, use of [employer] TBIL is not recommended. Protein [Mass/Vol] 7.7 g/dL 6.4-8.2 [facility] Work Phone: [phone] Laboratory - Chemistry and C hemistry - challengeon 04-07-2022 ALP [Catalytic activity/Vol] 121 U/L 45-117 [facility] Work Phone: [phone] ALT [Catalytic activity/Vol] 9 U/L 13-56 [facility] Work Phone: [phone] Globulin (S) [Mass/Vol] 5.4 g/dL 2.2-4.2 [facility] Work Phone: [phone] Serum or plasma albumin hussein urement (mass/volume)on 04-07-2022 Albumin [Mass/Vol] 2.3 g/dL 3.2-5.0 [facility] Work Phone: [phone] Serum or plasma albumin/glob ulin mass ratioon 04-07-2022 Albumin/Globulin [Mass ratio] 0.4 {ratio} 0.9-2.4 [facility] Work Phone: Thin prep Papanicolaou smear with manual screeningon 04-07-2022 Thin prep Papanicolaou smear with manual screening 6 U/L 15-37 [facility] Work Phone: Absolute lymphocyte counton 04-06-2022 Lymphocytes Auto (Unsp spec) [#/Vol] 2.55 10*3/uL 0.83-4.51 [facility] Work Phone: Basophil percentageon 2021 Basophils/100 WBC (Bld) 0.2 % 0-1 [facility] Work Phone: Chloride [Moles/Vol] 94 mmol/L 98-107 [facility] Work Phone: Eosinophils/100 WBC (Bld) 0.0 % 0-5 [facility] Work Phone: Glucose [Mass/Vol] 396 mg/dL 74-106 [facility] Work Phone: Comment on above: Glucose result great er than or equal to 200 mg/dLsuggests DIABETES MELLITUS per A.D.A. criteria. Neutrophils (Bld) [#/Vol] 18.0 10*3/uL 2.0-7.7 [facility] Work Phone: Neutrophils/100 WBC (Bld) 80.1 % 47-70 [facility] Work Phone: Potassium [Moles/Vol] 3.8 mmol/L 3.5-5.1 [facility] Work Phone: Sodium [Moles/Vol] 130 mmol/L 136-145 [facility] Work Phone: WBC (Bld) [#/Vol] 22.4 10*3/uL 4.4-11.0 [facility] Work Phone: Beta hCG serum qualon 2021 Beta HCG ( test) Ql Negative [facility] Work Phone: Blood erythrocytes count (nu mber/volume)on 04-06-2022 RBC (Bld) [#/Vol] 4.48 10*6/uL 4.2-5.4 [facility] Work Phone: Blood hemoglobin measurement (mass/volume)on 04-06-2022 Hemoglobin (Bld) [Mass/Vol] 12.0 g/dL 12.0-15.0 [facility] Work Phone: Blood lymphocytes/100 leukoc yteson 04-06-2022 Lymphocytes/100 WBC (Bld) 11.4 % 19-41 [facility] Work Phone: Blood monocytes/100 leukocyt eson 04-06-2022 Monocytes/100 WBC (Bld) 7.1 % 0-10 [facility] Work Phone: Blood platelet mean volumeon 04-06-2022 Platelet mean volume (Bld) [Entitic vol] 9.5 fL 6.2-12.0 [facility] Work Phone: Determination of erythrocyte mean corpuscular volume (MCV)on 04-06-2022 MCV (RBC) [Entitic vol] 82.1 fL 81-99 [facility] Work Phone: Erythrocyte sedimentation ra abeba 04-06-2022 ESR (Bld) [Velocity] 118 mm[facility]h 0-30 [facility]: Hematocrit Auto (Bld) [Volum e fraction]on 04-06-2022 Hematocrit (Bld) [Volume fraction] 36.8 % 37-47 [facility] Work Phone: Laboratory - Chemistry and C hemistry - challengeon 04-06-2022 CO2 [Moles/Vol] 25.0 mmol/L 21.0-32.0 [facility] Work Phone: Urea nitrogen/Creatinine [Mass ratio] 5.9 mg/mg 10-20 [facility] Work Phone: Laboratory - Hematology and Cell countson 04-06-2022 Erythrocyte distribution width (RBC) [Entitic vol] 39.4 fL 35.1-43.9 [facility] Work Phone: Erythrocyte distribution width (RBC) [Ratio] 13.2 % 11.6-14.6 [facility] Work Phone: [phone] Immature granulocytes/100 WBC (Bld) 1.200 % 0.0-0.9 [facility] Work Phone: Comment on above: IG% - Immature Granu locytes (promyelocytes, myelocytes and metamyelocytes) > 1% indicates that a LEFT SHIFT is Present. MCH (RBC) [Entitic mass] 26.8 pg 27.0-32.0 [facility] Work Phone: Nucleated RBC/100 WBC (Bld) [Ratio] 0 % 0-5 [facility] Work Phone: MCHC Auto (RBC) [Mass/Vol]on 04-06-2022 MCHC (RBC) [Mass/Vol] 32.6 g/dL 32-36 [facility] Work Phone: No Panel Informationon 04-06 Estimated Creatinine Clearance Calc 76.25 ml/min [facility] Work Phone: Estimated GFR (MDRD) Amer 83 mL/min >60 [facility] Work Phone: Comment on above: GFR Calc Estimated GFR (MDRD) Non-Af Amer 68 mL/min >60 [facility] Work Phone: Comment on above: Non- GFR Calc Platelets bldon 04-06-2022 Platelets (Bld) [#/Vol] 495 10*3/uL 150-450 [facility] Work Phone: Review by pathologiston 03-13 Pathologist review Franky (Unsp spec) [Interp] November ravindra [facility] Work Phone: Pathologist review Franky (Unsp spec) [Interp] Reviewed [facility] Work Phone: Comment on above: Previous reported re sult: November ravindra Edited by: CALEOD on 04/07/22:1303Neutrophilic leukocytosis with left shift. Thrombocytosis.Clinical correlation necessary.Patrick Castellon M.D. 04/07/22 AMENDED REPORT 04/07/22 1303 PATH REV previously reported as: November Serum or plasma C reactive p rotein measurement (mass/volume)on 04-06-2022 CRP [Mass/Vol] 321.00 mg/L 0.0-3.0 [facility] Work Phone: Comment on above: C-Reactive Protein ( CRP) provides useful information for thediagnosis, therapy and monitoring of inflammatory processesand associated diseases. For the evaluation of Relative Riskfor Cardiovascular Disease, a High Sensitivity CRP (HSCRP)should be ordered. Serum or plasma acetone hussein urement (mass/volume)on 04-06-2022 Acetone [Mass/Vol] Negative NEG [facility] Work Phone: Serum or plasma calcium hussein urement (mass/volume)on 04-06-2022 Calcium [Mass/Vol] 9.7 mg/dL 8.5-10.1 [facility] Work Phone: Serum or plasma creatinine m easurement (mass/volume)on 04-06-2022 Creatinine [Mass/Vol] 1.01 mg/dL 0.55-1.02 [facility] Work Phone: Comment on above: The validity of the calculated GFR & GFRAA in patients over 70 years has not been determined. Clinical correlation is essential. Serum or plasma urea nitroge n measurement (mass/volume)on 04-06-2022 Urea nitrogen [Mass/Vol] 6 mg/dL 7-18 [facility] Work Phone: Thin prep Papanicolaou smear with manual screeningon 04-06-2022 Thin prep Papanicolaou smear with manual screening 11 5-15 [facility] Work Phone: Whole blood hemoglobin A1c/t otal hemoglobin ratio (mass fraction)on 04-06-2022 HbA1c (Bld) [Mass fraction] 10.0 % 3.8-5.6 [facility] Work Phone: Comment on above: Normal < 5.7 % Predi abetic 5.7 - 6.4 % Diabetic >or= 6.5 % Please note range changes. Absolute lymphocyte counton 04-05-2022 Lymphocytes Auto (Unsp spec) [#/Vol] 2.49 10*3/uL 0.83-4.51 [facility] Work Phone: Basophil percentageon 2021 Basophils/100 WBC (Bld) 0.2 % 0-1 [facility] Work Phone: Chloride [Moles/Vol] 93 mmol/L 98-107 [facility] Work [facility]: Eosinophils/100 WBC (Bld) 0.2 % 0-5 [facility] Work Phone: [phone] Glucose [Mass/Vol] 389 mg/dL 74-106 [facility] Work Phone: [phone] Comment on above: Glucose result great er than or equal to 200 mg/dLsuggests DIABETES MELLITUS per A.D.A. criteria. Lactate [Moles/Vol] 2.5 mmol/L 0.4-2.0 [facility] Work [facility]: [phone] Comment on above: Critical Result(s) C alled at: 13:33:37 04/05/2022 by: Gayathri Torres. Results read back by same. Neutrophils (Bld) [#/Vol] 13.7 10*3/uL 2.0-7.7 [facility] Work Phone: [phone] Neutrophils/100 WBC (Bld) 78.3 % 47-70 [facility] Work Phone: Potassium [Moles/Vol] 4.0 mmol/L 3.5-5.1 [facility] Work [facility]: Sodium [Moles/Vol] 132 mmol/L 136-145 [facility] Work Phone: WBC (Bld) [#/Vol] 17.5 10*3/uL 4.4-11.0 [facility] Work Phone: [phone] Blood erythrocytes count (nu mber/volume)on 04-05-2022 RBC (Bld) [#/Vol] 4.50 10*6/uL 4.2-5.4 [facility] Work Phone: Blood hemoglobin measurement (mass/volume)on 04-05-2022 Hemoglobin (Bld) [Mass/Vol] 12.7 g/dL 12.0-15.0 [facility] Work Phone: [phone] Blood lymphocytes/100 leukoc yteson 04-05-2022 Lymphocytes/100 WBC (Bld) 14.2 % 19-41 [facility] Work Phone: [phone] Blood monocytes/100 leukocyt eson 04-05-2022 Monocytes/100 WBC (Bld) 6.3 % 0-10 [facility] Work Phone: Blood platelet mean volumeon 04-05-2022 Platelet mean volume (Bld) [Entitic vol] 9.7 fL 6.2-12.0 [facility] Work Phone: Determination of erythrocyte mean corpuscular volume (MCV)on 04-05-2022 MCV (RBC) [Entitic vol] 82.2 fL 81-99 [facility] Work Phone: Hematocrit Auto (Bld) [Volum e fraction]on 04-05-2022 Hematocrit (Bld) [Volume fraction] 37.0 % 37-47 [facility] Work Phone: Laboratory - Chemistry and C hemistry - challengeon 04-05-2022 CO2 [Moles/Vol] 28.0 mmol/L 21.0-32.0 [facility] Work Phone: Urea nitrogen/Creatinine [Mass ratio] 8.5 mg/mg 10-20 [facility] Work Phone: [phone] Laboratory - Hematology and Cell countson 04-05-2022 Erythrocyte distribution width (RBC) [Entitic vol] 40.1 fL 35.1-43.9 [facility] Work Phone: [phone] Erythrocyte distribution width (RBC) [Ratio] 13.5 % 11.6-14.6 [facility] Work Phone: Immature granulocytes/100 WBC (Bld) 0.800 % 0.0-0.9 [facility] Work Phone: [phone] Comment on above: IG% - Immature Granu locytes (promyelocytes, myelocytes and metamyelocytes) > 1% indicates that a LEFT SHIFT is Present. MCH (RBC) [Entitic mass] 28.2 pg 27.0-32.0 [facility] Work Phone: [phone] Nucleated RBC/100 WBC (Bld) [Ratio] 0 % 0-5 [facility] Work Phone: [phone] MCHC Auto (RBC) [Mass/Vol]on 04-05-2022 MCHC (RBC) [Mass/Vol] 34.3 g/dL 32-36 [facility] Work Phone: No Panel Informationon 04-05 Estimated Creatinine Clearance Calc 92.78 ml/min [facility] Work Phone: [phone] Estimated GFR (MDRD) Amer 104 mL/min >60 [facility] Work Phone: [phone] Comment on above: GFR Calc Estimated GFR (MDRD) Non-Af Amer 86 mL/min >60 [facility] Work Phone: [phone] Comment on above: Non- GFR Calc Platelets bldon 04-05-2022 Platelets (Bld) [#/Vol] 444 10*3/uL 150-450 [facility] Work Phone: [phone] Serum or plasma calcium hussein urement (mass/volume)on 04-05-2022 Calcium [Mass/Vol] 9.2 mg/dL 8.5-10.1 [facility] Work Phone: [phone] Serum or plasma creatinine m easurement (mass/volume)on 04-05-2022 Creatinine [Mass/Vol] 0.83 mg/dL 0.55-1.02 [facility] Work Phone: [phone] Comment on above: The validity of the calculated GFR & GFRAA in patients over 70 years has not been determined. Clinical correlation is essential. Serum or plasma urea nitroge n measurement (mass/volume)on 04-05-2022 Urea nitrogen [Mass/Vol] 7 mg/dL 7-18 [facility] Work Phone: Thin prep Papanicolaou smear with manual screeningon 04-05-2022 Thin prep Papanicolaou smear with manual screening 11 5-15 [facility] Work Phone: XR CHEST 2V FRONTAL/LATon [facility] XR Chest PA and Lateralon IMPRESSION: Within normal limits. No acute radiographic abnormality. Hearing Aid Assistant: PSCB Transcribe Date/Time: Mar 23 2022 1:11P Dictated by : CINDY OBRIEN MD This examination was interpreted and the report reviewed and electronically signed by: CINDY OBRIEN MD on Mar 23 2022 1:14PM [facility] DIVISION OF RADIOLOGY * * *Final Report* * * DATE OF EXAM: Mar 23 2022 1:09PM WOX 5291 - XR CHEST 2V FRONTAL/LAT / PROCEDURE REASON: multiple diagnoses * * * * Physician Interpretation * * * * EXAMINATION: CHEST RADIOGRAPH (2 VIEW FRONTAL & LATERAL), 03/23/2022 CLINICAL HISTORY: Acute cough Mild intermittent asthmatic bronchitis without complication MQ: XC2_6 EXAM DATE/TIME: 03/23/2022 1:09 PM COMPARISON: 05/15/2021 RESULT: Lines, tubes, and devices: None. Lungs and pleura: The lungs are clear. No pleural effusion. No pneumothorax. Cardiomediastinal silhouette: Normal cardiomediastinal silhouette. Bones and soft tissues: Unremarkable. DIVISION OF RADIOLOGY [facility] * * *Final Report* * * DATE OF EXAM: Mar 23 2022 1:09PM WOX 5291 - XR CHEST 2V FRONTAL/LAT / PROCEDURE REASON: multiple diagnoses * * * * Physician Interpretation * * * * EXAMINATION: CHEST RADIOGRAPH (2 VIEW FRONTAL & LATERAL), 03/23/2022 CLINICAL HISTORY: Acute cough Mild intermittent asthmatic bronchitis without complication MQ: XC2_6 EXAM DATE/TIME: 03/23/2022 1:09 PM COMPARISON: 05/15/2021 RESULT: Lines, tubes, and devices: None. Lungs and pleura: The lungs are clear. No pleural effusion. No pneumothorax. Cardiomediastinal silhouette: Normal cardiomediastinal silhouette. Bones and soft tissues: Unremarkable. IMPRESSION IMPRESSION: Within normal limits. No acute radiographic abnormality. Hearing Aid Assistant: OLGA Transcribe Date/Time: Mar 23 2022 1:11P Dictated by : CINDY OBRIEN MD This examination was interpreted and the report reviewed and electronically signed by: CINDY OBRIEN MD on Mar 23 2022 1:14PM EST [facility] Radiology Study observation (narrative) Melissa gupta [facility] XR Chest PA and LateralOrder ed By: Ccf Provider on 03-23-2022 [facility] Absolute lymphocyte counton 02-01-2022 Lymphocytes Auto (Unsp spec) [#/Vol] 3.62 10*3/uL 0.83-4.51 [facility] Work Phone: Basophil percentageon 2021 Basophil percentage 0-5 SEEN /hpf 0-5 [facility] Work Phone: Basophils/100 WBC (Bld) 0.3 % 0-1 [facility] Work Phone: Bilirubin [Mass/Vol] 0.40 mg/dL 0.20-1.00 [facility] Work Phone: Comment on above: For patients on eltr ombopag therapy, use of [employer] TBIL is not recommended. Chloride [Moles/Vol] 98 mmol/L 98-107 [facility] Work Phone: Eosinophils/100 WBC (Bld) 0.5 % 0-5 [facility] Work Phone: Glucose [Mass/Vol] 334 mg/dL 74-106 [facility] Work Phone: Comment on above: Glucose result great er than or equal to 200 mg/dLsuggests DIABETES MELLITUS per A.D.A. criteria. Lactate [Moles/Vol] 2.5 mmol/L 0.4-2.0 [facility] Work Phone: Comment on above: Critical Result(s) C alled at: 13:53:33 02/01/2022 by: Gayathri wayne Sabine. Results read back by same. Neutrophils (Bld) [#/Vol] 5.5 10*3/uL 2.0-7.7 [facility] Work Phone: Neutrophils/100 WBC (Bld) 54.6 % 47-70 [facility] Work Phone: Potassium [Moles/Vol] 3.2 mmol/L 3.5-5.1 [facility] Work Phone: Protein [Mass/Vol] 7.2 g/dL 6.4-8.2 [facility] Work Phone: Sodium [Moles/Vol] 131 mmol/L 136-145 [facility] Work Phone: WBC (Bld) [#/Vol] 10.1 10*3/uL 4.4-11.0 [facility] Work Phone: Beta hCG serum qualon 2021 Beta HCG ( test) Ql Negative [facility] Work Phone: Bilirubin Test strip Ql (U)o n 02-01-2022 Bilirubin Ql (U) Negative Negative [facility] Work Phone: Blood erythrocytes count (nu mber/volume)on 02-01-2022 RBC (Bld) [#/Vol] 4.45 10*6/uL 4.2-5.4 [facility] Work Phone: Blood hemoglobin measurement (mass/volume)on 02-01-2022 Hemoglobin (Bld) [Mass/Vol] 11.7 g/dL 12.0-15.0 [facility] Work Phone: Blood lymphocytes/100 leukoc yteson 02-01-2022 Lymphocytes/100 WBC (Bld) 35.9 % 19-41 [facility] Work Phone: Blood monocytes/100 leukocyt eson 02-01-2022 Monocytes/100 WBC (Bld) 7.8 % 0-10 [facility] Work Phone: Blood platelet mean volumeon 02-01-2022 Platelet mean volume (Bld) [Entitic vol] 9.7 fL 6.2-12.0 [facility] Work Phone: [phone] Determination of erythrocyte mean corpuscular volume (MCV)on 02-01-2022 MCV (RBC) [Entitic vol] 80.2 fL 81-99 [facility] Work Phone: [phone] Hematocrit Auto (Bld) [Volum e fraction]on 02-01-2022 Hematocrit (Bld) [Volume fraction] 35.7 % 37-47 [facility] Work Phone: [phone] Ketones Test strip Ql (U)on 02-01-2022 Ketones Ql (U) Negative Negative [facility] Work Phone: [phone] Laboratory - Chemistry and C hemistry - challengeon 02-01-2022 ALP [Catalytic activity/Vol] 79 U/L 45-117 [facility] Work Phone: [phone] ALT [Catalytic activity/Vol] 12 U/L 13-56 [facility] Work Phone: [phone] CO2 [Moles/Vol] 24.0 mmol/L 21.0-32.0 [facility] Work Phone: [phone] Globulin (S) [Mass/Vol] 4.5 g/dL 2.2-4.2 [facility] Work Phone: [phone] Lipase [Catalytic activity/Vol] 154 U/L 73-393 [facility] Work Phone: [phone] Urea nitrogen/Creatinine [Mass ratio] 6.9 mg/mg 10-20 [facility] Work Phone: [phone] Laboratory - Hematology and Cell countson 02-01-2022 Erythrocyte distribution width (RBC) [Entitic vol] 39.5 fL 35.1-43.9 [facility] Work Phone: [phone] Erythrocyte distribution width (RBC) [Ratio] 13.7 % 11.6-14.6 [facility] Work Phone: [phone] Immature granulocytes/100 WBC (Bld) 0.900 % 0.0-0.9 [facility] Work Phone: Comment on above: IG% - Immature Granu locytes (promyelocytes, myelocytes and metamyelocytes) > 1% indicates that a LEFT SHIFT is Present. MCH (RBC) [Entitic mass] 26.3 pg 27.0-32.0 [facility] Work Phone: Nucleated RBC/100 WBC (Bld) [Ratio] 0 % 0-5 [facility] Work Phone: [phone] MCHC Auto (RBC) [Mass/Vol]on 02-01-2022 MCHC (RBC) [Mass/Vol] 32.8 g/dL 32-36 [facility] Work Phone: Mucus LM Ql (Urine sed)on Mucus Ql (Urine sed) 0 SEEN /hpf [facility] Work Phone: [phone] Nitrite Test strip Ql (U)on 02-01-2022 Nitrite Ql (U) Negative Negative [facility] Work Phone: No Panel Informationon 02-01 Estimated Creatinine Clearance Calc 75.50 ml/min [facility] Work Phone: [phone] Estimated GFR (MDRD) Amer 82 mL/min >60 [facility] Work Phone: Comment on above: GFR Calc Estimated GFR (MDRD) Non-Af Amer 68 mL/min >60 [facility] Work Phone: Comment on above: Non- GFR Calc Platelets bldon 02-01-2022 Platelets (Bld) [#/Vol] 368 10*3/uL 150-450 [facility] Work Phone: [phone] Protein Test strip Ql (U)on 02-01-2022 Protein Ql (U) 15 mg/dl Negative [facility] Work Phone: [phone] Serum or plasma albumin hussein urement (mass/volume)on 02-01-2022 Albumin [Mass/Vol] 2.7 g/dL 3.2-5.0 [facility] Work Phone: [phone] Serum or plasma albumin/glob ulin mass ratioon 02-01-2022 Albumin/Globulin [Mass ratio] 0.6 {ratio} 0.9-2.4 [facility] Work Phone: Serum or plasma calcium hussein urement (mass/volume)on 02-01-2022 Calcium [Mass/Vol] 8.7 mg/dL 8.5-10.1 [facility] Work Phone: [phone] Serum or plasma creatinine m easurement (mass/volume)on 02-01-2022 Creatinine [Mass/Vol] 1.02 mg/dL 0.55-1.02 [facility] Work Phone: Comment on above: The validity of the calculated GFR & GFRAA in patients over 70 years has not been determined. Clinical correlation is essential. Serum or plasma urea nitroge n measurement (mass/volume)on 02-01-2022 Urea nitrogen [Mass/Vol] 7 mg/dL 7-18 [facility] Work Phone: Squamous epithelial cells de tection in urine sediment by light microscopyon 02-01-2022 Epithelial cells.squamous LM Ql (Urine sed) 0-5 SEEN /hpf 5-10 [facility] Work Phone: Thin prep Papanicolaou smear with manual screeningon 02-01-2022 Thin prep Papanicolaou smear with manual screening 8 U/L 15-37 [facility] Work Phone: Thin prep Papanicolaou smear with manual screening 9 5-15 [facility] Work Phone: Urine blood detectionon 01-10 RBC Ql (U) 50 /ul Negative [facility] Work Phone: RBC Ql (U) 0-5 SEEN /hpf 0-5 [facility] Work Phone: [phone] Urine clarityon 02-01-2022 Clarity (U) Clear Clear [facility] Work Phone: Urine color determinationon 02-01-2022 Color (U) Yellow Yellow [facility] Work Phone: [phone] Urine glucose detectionon Glucose Ql (U) 1000 mg/dl Normal [facility] Work Phone: Urine leukocyte esterase det ection by dipstickon 02-01-2022 Leukocyte esterase Test strip Ql (U) 25 /ul Negative [facility] Work Phone: Urine pHon 02-01-2022 pH (U) 5.0 [pH] 5.0 - 8.0 [facility] Work Phone: Urine sediment bacteria coun t by microscopy (number/high power field)on 02-01-2022 Bacteria LM.HPF (Urine sed) [#/Area] 0 /[HPF] None Seen [facility] Work Phone: Urine specific gravity measu rementon 02-01-2022 Specific gravity (U) [Rel density] 1.020 1.002-1.030 [facility] Work Phone: Urobilinogen Auto test strip Ql (U)on 02-01-2022 Urobilinogen Ql (U) Normal mg/dl Normal [facility] Work Phone: Absolute lymphocyte counton 01-30-2022 Lymphocytes Auto (Unsp spec) [#/Vol] 5.16 10*3/uL 0.83-4.51 [facility] Work Phone: Albumin Elph [Mass/Vol]on Albumin [Mass/Vol] 3.6 g/dL 2.9-4.4 [facility] Work Phone: Atypical perinuclear antineu trophil cytoplasmic antibodies measurementon 01-30-2022 Neutrophil cytoplasmic Ab.perinuclear.atypical IF (S) [Titer] <1:20 titer Neg:<1:20 [facility] Work Phone: Comment on above: The atypical pANCA p attern has been observed in asignificant percentage of patients with ulcerative colitis,primary sclerosing cholangitis and autoimmune hepatitis.Performed at: [address] [id number] Director: Wade Lazo PhD, Phone: [phone] at: [id number] [place], [place] [id number] Director: Philip Robles MD, Phone: [phone] Basophil percentageon 2021 Amylase [Catalytic activity/Vol] 19 U/L 25-115 [facility] Work Phone: Basophil percentage < 0.2 AI 0.0-0.9 [facility] Work Phone: [phone] Basophils/100 WBC (Bld) 0.3 % 0-1 [facility] Work Phone: [phone] Eosinophils/100 WBC (Bld) 0.5 % 0-5 [facility] Work Phone: [phone] Neutrophils (Bld) [#/Vol] 8.8 10*3/uL 2.0-7.7 [facility] Work Phone: [phone] Neutrophils/100 WBC (Bld) 57.5 % 47-70 [facility] Work Phone: [phone] WBC (Bld) [#/Vol] 15.3 10*3/uL 4.4-11.0 [facility] Work Phone: [phone] Blood erythrocytes count (nu mber/volume)on 01-30-2022 RBC (Bld) [#/Vol] 5.33 10*6/uL 4.2-5.4 [facility] Work Phone: [phone] Blood hemoglobin measurement (mass/volume)on 01-30-2022 Hemoglobin (Bld) [Mass/Vol] 13.9 g/dL 12.0-15.0 [facility] Work Phone: [phone] Blood lymphocytes/100 leukoc yteson 01-30-2022 Lymphocytes/100 WBC (Bld) 33.7 % 19-41 [facility] Work Phone: [phone] Blood manual differential co mment interpretation (narrative result)on 01-30-2022 Manual differential comment Franky (Bld) [Interp] SCANNED [facility] Work Phone: Comment on above: LYMPHOCYTOSIS NOTED Blood monocytes/100 leukocyt eson 01-30-2022 Monocytes/100 WBC (Bld) 7.2 % 0-10 [facility] Work Phone: Blood platelet mean volumeon 01-30-2022 Platelet mean volume (Bld) [Entitic vol] 9.5 fL 6.2-12.0 [facility] Work Phone: Determination of erythrocyte mean corpuscular volume (MCV)on 01-30-2022 MCV (RBC) [Entitic vol] 80.3 fL 81-99 [facility] Work Phone: Erythrocyte sedimentation ra abeba 01-30-2022 ESR (Bld) [Velocity] 81 mm/h 0-30 [facility]: [phone] Hematocrit Auto (Bld) [Volum e fraction]on 01-30-2022 Hematocrit (Bld) [Volume fraction] 42.8 % 37-47 [facility] Work Phone: Interpretation of serum or p lasma protein pattern by immunofixation (narrative resulton 01-30-2022 Protein Fractions Immunofixation Franky [Interp] See comment [facility] Work Phone: Comment on above: NOT OBSERVED Laboratory - Chemistry and C hemistry - challengeon 01-30-2022 Cobalamin (Vitamin B12) [Mass/Vol] 318 pg/mL 211-911 [facility] Work Phone: Lipase [Catalytic activity/Vol] 150 U/L 73-393 [facility] Work Phone: Laboratory - Hematology and Cell countson 01-30-2022 Erythrocyte distribution width (RBC) [Entitic vol] 40.0 fL 35.1-43.9 [facility] Work Phone: [phone] Erythrocyte distribution width (RBC) [Ratio] 14.0 % 11.6-14.6 [facility] Work Phone: Immature granulocytes/100 WBC (Bld) 0.800 % 0.0-0.9 [facility] Work Phone: [phone] Comment on above: IG% - Immature Granu locytes (promyelocytes, myelocytes and metamyelocytes) > 1% indicates that a LEFT SHIFT is Present. MCH (RBC) [Entitic mass] 26.1 pg 27.0-32.0 [facility] Work Phone: Nucleated RBC/100 WBC (Bld) [Ratio] 0 % 0-5 [facility] Work Phone: [phone] MCHC Auto (RBC) [Mass/Vol]on 01-30-2022 MCHC (RBC) [Mass/Vol] 32.5 g/dL 32-36 [facility] Work Phone: [phone] Panel Informationon 01-30 Addendum Document Comment . [facility] Work Phone: [phone] Comment on above: Protein electrophore sis scan will follow via computer,mail, or kapok machine operator delivery. Centromere B Antibody <0.2 AI 0.0-0.9 [facility] Work Phone: [phone] Endomysial IgA Antibody Negative Negative [facility] Work Phone: Immunoglobulin E 119 IU/mL 6-495 [facility] Work Phone: [phone] WASH TUB MACHINE OPERATOR Antibody <0.2 AI 0.0-0.9 [facility] Work Phone: [phone] Thyroid Stimulating Hormone (TSH) 2.21 uIU/mL 0.358-3.74 [facility] Work Phone: [phone] Platelets bldon 01-30-2022 Platelets (Bld) [#/Vol] 484 10*3/uL 150-450 [facility] Work Phone: [phone] Serum DNA double strand anti body assay (units/volume)on 01-30-2022 DNA double strand Ab Qn (S) [IU]/mL 0-9 [facility] Work Phone: [phone] Comment on above: Negative <5 Equivoca l 5 - 9 Positive >9 Serum Neva-1 antibody assay (u nits/volume)on 01-30-2022 Neva-1 extractable nuclear Ab Qn (S) <0.2 AI 0.0-0.9 [facility] Work Phone: Serum Scl-70 extractable nuc lear antibody assay (units/volume)on 01-30-2022 SCL-70 extractable nuclear Ab Qn (S) <0.2 AI 0.0-0.9 [facility] Work Phone: Serum Jang extractable nucl ear antibody detectionon 01-30-2022 Jang extractable nuclear Ab Ql (S) <0.2 AI 0.0-0.9 [facility] Work Phone: Serum agvzu-0-febgfcog measu rement by electrophoresison 01-30-2022 Alpha 1 globulin Elph [Mass/Vol] 0.2 g/dL 0.0-0.4 [facility] Work Phone: Alpha 1 globulin Elph [Mass/Vol] 1.6 g/dL 0.4-1.0 [facility] Work Phone: Serum classic neutrophil cyt oplasmic antibody assay (units/volume)on 01-30-2022 Neutrophil cytoplasmic Ab.classic Qn (S) 1:80 titer Neg:<1:20 [facility] Work Phone: Serum globulin measurement ( mass/volume)on 01-30-2022 Globulin (S) [Mass/Vol] 4.8 g/dL 2.2-3.9 [facility] Work Phone: Serum or plasma C reactive p rotein measurement (mass/volume)on 01-30-2022 CRP [Mass/Vol] 53.10 mg/L 0.0-3.0 [facility] Work Phone: Comment on above: C-Reactive Protein ( CRP) provides useful information for thediagnosis, therapy and monitoring of inflammatory processesand associated diseases. For the evaluation of Relative Riskfor Cardiovascular Disease, a High Sensitivity CRP (HSCRP)should be ordered. Serum or plasma IgA measurem ent (mass/volume)on 01-30-2022 IgA [Mass/Vol] 478 mg/dL 87-352 [facility] Work Phone: Serum or plasma IgG measurem ent (mass/volume)on 01-30-2022 IgG [Mass/Vol] 1630 mg/dL [phone] [facility] Work Phone: Serum or plasma IgM measurem ent (mass/volume)on 01-30-2022 IgM [Mass/Vol] 294 mg/dL 26-217 [facility] Work Phone: Serum or plasma beta globuli n measurement by electrophoresis (mass/volume)on 01-30-2022 Beta globulin Elph [Mass/Vol] 1.0 g/dL 0.7-1.3 [facility] Work Phone: Serum or plasma folate measu rement (mass/volume)on 01-30-2022 Folate [Mass/Vol] 13.50 ng/mL 3.1-55.4 [facility] Work Phone: Serum or plasma gamma globul in measurement by electrophoresis (mass/volume)on 01-30-2022 Gamma globulin Elph [Mass/Vol] 1.9 g/dL 0.4-1.8 [facility] Work Phone: Serum or plasma immunoelectr ophoresis interpretation (nominal result)on 01-30-2022 Interpretation IEP [Interp] Comment . [facility] Work Phone: Comment on above: No monoclonality det ected. Serum perinuclear neutrophil cytoplasmic antibody titer by immunofluorescenceon 01-30-2022 Neutrophil cytoplasmic Ab.perinuclear IF (S) [Titer] <1:20 titer Neg:<1:20 [facility] Work Phone: Comment on above: The presence of posi tive fluorescence exhibiting P-ANCA orC-ANCA patterns alone is not specific for the diagnosis ofWegener's Granulomatosis (WG) or microscopic polyangiitis.Decisions about treatment should not be based solely onANCA IFA results. The [employer] ANCA [employer] Consensusrecommends follow up testing of positive sera with both AZ-3 and MPO-ANCA enzyme immunoassays. As many as 5% serumsamples are positive only by EIA. Ref. AM J Clin [place]z2670;111:507-513. Serum tissue transglutaminas e IgA antibody assay (units/volume)on 01-30-2022 tTG IgA Qn (S) <2 U/mL 0-3 [facility] Work Phone: Comment on above: Negative 0 - 3 Weak Positive 4 - 10 Positive >10 Tissue Transglutaminase (tTG) has been identified as the endomysial antigen. Studies have demonstr- ated that endomysial IgA antibodies have over 99% specificity for gluten sensitive enteropathy. Thin prep Papanicolaou smear with manual screeningon 01-30-2022 Thin prep Papanicolaou smear with manual screening 153 U/L 84-246 [facility] Work Phone: Thin prep Papanicolaou smear with manual screening 0.8 0.7-1.7 [facility] Work Phone: [phone] Total protein bloodon 2021 Protein [Mass/Vol] 8.4 g/dL 6.0-8.5 [facility] Work Phone: [phone] Whole blood hemoglobin A1c/t otal hemoglobin ratio (mass fraction)on 01-30-2022 HbA1c (Bld) [Mass fraction] 11.4 % 3.8-5.6 [facility] Work Phone: Comment on above: Normal < 5.7 % Predi abetic 5.7 - 6.4 % Diabetic >or= 6.5 % Please note range changes. Absolute lymphocyte counton 01-26-2022 Lymphocytes Auto (Unsp spec) [#/Vol] 4.70 10*3/uL 0.83-4.51 [facility] Work Phone: Basophil percentageon 2021 Basophils/100 WBC (Bld) 0.4 % 0-1 [facility] Work Phone: Bilirubin [Mass/Vol] 0.40 mg/dL 0.20-1.00 [facility] Work Phone: [phone] Comment on above: For patients on eltr ombopag therapy, use of [employer] TBIL is not recommended. Chloride [Moles/Vol] 101 mmol/L 98-107 [facility] Work Phone: Eosinophils/100 WBC (Bld) 0.2 % 0-5 [facility] Work Phone: Glucose [Mass/Vol] 320 mg/dL 74-106 [facility] Work Phone: Comment on above: Glucose result great er than or equal to 200 mg/dLsuggests DIABETES MELLITUS per A.D.A. criteria. Neutrophils (Bld) [#/Vol] 5.6 10*3/uL 2.0-7.7 [facility] Work Phone: Neutrophils/100 WBC (Bld) 50.6 % 47-70 [facility] Work Phone: Potassium [Moles/Vol] 3.6 mmol/L 3.5-5.1 [facility]: Protein [Mass/Vol] 8.5 g/dL 6.4-8.2 [facility] Work Phone: Sodium [Moles/Vol] 136 mmol/L 136-145 [facility] Work Phone: WBC (Bld) [#/Vol] 11.1 10*3/uL 4.4-11.0 [facility]: Blood erythrocytes count (nu mber/volume)on 01-26-2022 RBC (Bld) [#/Vol] 4.99 10*6/uL 4.2-5.4 [facility] Work Phone: Blood hemoglobin measurement (mass/volume)on 01-26-2022 Hemoglobin (Bld) [Mass/Vol] 12.9 g/dL 12.0-15.0 [facility] Work Phone: Blood lymphocytes/100 leukoc yteson 01-26-2022 Lymphocytes/100 WBC (Bld) 42.2 % 19-41 [facility] Work Phone: Blood monocytes/100 leukocyt eson 01-26-2022 Monocytes/100 WBC (Bld) 5.9 % 0-10 [facility] Work Phone: Blood platelet mean volumeon 01-26-2022 Platelet mean volume (Bld) [Entitic vol] 9.5 fL 6.2-12.0 [facility] Work Phone: [phone] Determination of erythrocyte mean corpuscular volume (MCV)on 01-26-2022 MCV (RBC) [Entitic vol] 77.8 fL 81-99 [facility] Work Phone: [phone] Hematocrit Auto (Bld) [Volum e fraction]on 01-26-2022 Hematocrit (Bld) [Volume fraction] 38.8 % 37-47 [facility] Work Phone: [phone] Laboratory - Chemistry and C hemistry - challengeon 01-26-2022 ALP [Catalytic activity/Vol] 85 U/L 45-117 [facility] Work Phone: [phone] ALT [Catalytic activity/Vol] 14 U/L 13-56 [facility] Work Phone: [phone] CO2 [Moles/Vol] 26.0 mmol/L 21.0-32.0 [facility] Work Phone: [phone] Globulin (S) [Mass/Vol] 5.3 g/dL 2.2-4.2 [facility] Work Phone: [phone] Lipase [Catalytic activity/Vol] 179 U/L 73-393 [facility] Work Phone: [phone] Urea nitrogen/Creatinine [Mass ratio] 13.1 mg/mg 10-20 [facility] Work Phone: [phone] Laboratory - Hematology and Cell countson 01-26-2022 Erythrocyte distribution width (RBC) [Entitic vol] 37.9 fL 35.1-43.9 [facility] Work Phone: [phone] Erythrocyte distribution width (RBC) [Ratio] 13.8 % 11.6-14.6 [facility] Work Phone: [phone] Immature granulocytes/100 WBC (Bld) 0.700 % 0.0-0.9 [facility] Work Phone: [phone] Comment on above: IG% - Immature Granu locytes (promyelocytes, myelocytes and metamyelocytes) > 1% indicates that a LEFT SHIFT is Present. MCH (RBC) [Entitic mass] 25.9 pg 27.0-32.0 [facility] Work Phone: [phone] Nucleated RBC/100 WBC (Bld) [Ratio] 0 % 0-5 [facility] Work Phone: [phone] MCHC Auto (RBC) [Mass/Vol]on 01-26-2022 MCHC (RBC) [Mass/Vol] 33.2 g/dL 32-36 [facility] Work Phone: No Panel Informationon 01-26 Estimated Creatinine Clearance Calc 84.46 ml/min [facility] Work Phone: [phone] Estimated GFR (MDRD) Amer 92 mL/min >60 [facility] Work Phone: [phone] Comment on above: GFR Calc Estimated GFR (MDRD) Non-Af Amer 76 mL/min >60 [facility] Work Phone: Comment on above: Non- GFR Calc Platelets bldon 01-26-2022 Platelets (Bld) [#/Vol] 474 10*3/uL 150-450 [facility] Work Phone: Serum or plasma albumin hussein urement (mass/volume)on 01-26-2022 Albumin [Mass/Vol] 3.2 g/dL 3.2-5.0 [facility] Work Phone: Serum or plasma albumin/glob ulin mass ratioon 01-26-2022 Albumin/Globulin [Mass ratio] 0.6 {ratio} 0.9-2.4 [facility] Work Phone: [phone] Serum or plasma calcium hussein urement (mass/volume)on 01-26-2022 Calcium [Mass/Vol] 9.3 mg/dL 8.5-10.1 [facility] Work Phone: [phone] Serum or plasma creatinine m easurement (mass/volume)on 01-26-2022 Creatinine [Mass/Vol] 0.92 mg/dL 0.55-1.02 [facility] Work Phone: [phone] Comment on above: The validity of the calculated GFR & GFRAA in patients over 70 years has not been determined. Clinical correlation is essential. Serum or plasma urea nitroge n measurement (mass/volume)on 01-26-2022 Urea nitrogen [Mass/Vol] 12 mg/dL 7-18 [facility] Work Phone: Thin prep Papanicolaou smear with manual screeningon 01-26-2022 Thin prep Papanicolaou smear with manual screening 7 U/L 15-37 [facility] Work Phone: Thin prep Papanicolaou smear with manual screening 9 5-15 [facility] Work Phone: Absolute lymphocyte counton 01-23-2022 Lymphocytes Auto (Unsp spec) [#/Vol] 3.74 10*3/uL 0.83-4.51 [facility] Work Phone: Basophil percentageon 2021 Basophils/100 WBC (Bld) 0.4 % 0-1 [facility] Work Phone: Chloride [Moles/Vol] 97 mmol/L 98-107 [facility] Work Phone: Eosinophils/100 WBC (Bld) 0.4 % 0-5 [facility] Work Phone: Glucose [Mass/Vol] 362 mg/dL 74-106 [facility] Work Phone: Comment on above: Glucose result great er than or equal to 200 mg/dLsuggests DIABETES MELLITUS per A.D.A. criteria. Neutrophils (Bld) [#/Vol] 5.3 10*3/uL 2.0-7.7 [facility] Work Phone: Neutrophils/100 WBC (Bld) 53.8 % 47-70 [facility] Work Phone: Potassium [Moles/Vol] 4.0 mmol/L 3.5-5.1 [facility] Work Phone: Sodium [Moles/Vol] 131 mmol/L 136-145 [facility] Work Phone: WBC (Bld) [#/Vol] 9.8 10*3/uL 4.4-11.0 [facility] Work [facility]: Blood erythrocytes count (nu mber/volume)on 01-23-2022 RBC (Bld) [#/Vol] 5.18 10*6/uL 4.2-5.4 [facility] Work Phone: Blood hemoglobin measurement (mass/volume)on 01-23-2022 Hemoglobin (Bld) [Mass/Vol] 13.4 g/dL 12.0-15.0 [facility] Work Phone: Blood lymphocytes/100 leukoc yteson 01-23-2022 Lymphocytes/100 WBC (Bld) 38.3 % 19-41 [facility] Work Phone: Blood monocytes/100 leukocyt eson 01-23-2022 Monocytes/100 WBC (Bld) 6.3 % 0-10 [facility] Work Phone: Blood platelet mean volumeon 01-23-2022 Platelet mean volume (Bld) [Entitic vol] 9.2 fL 6.2-12.0 [facility] Work Phone: Determination of erythrocyte mean corpuscular volume (MCV)on 01-23-2022 MCV (RBC) [Entitic vol] 78.2 fL 81-99 [facility] Work Phone: Hematocrit Auto (Bld) [Volum e fraction]on 01-23-2022 Hematocrit (Bld) [Volume fraction] 40.5 % 37-47 [facility] Work Phone: Laboratory - Chemistry and C hemistry - challengeon 01-23-2022 CO2 [Moles/Vol] 24.0 mmol/L 21.0-32.0 [facility] Work Phone: Urea nitrogen/Creatinine [Mass ratio] 17.3 mg/mg 10-20 [facility] Work Phone: Laboratory - Hematology and Cell countson 01-23-2022 Erythrocyte distribution width (RBC) [Entitic vol] 38.2 fL 35.1-43.9 [facility] Work Phone: [phone] Erythrocyte distribution width (RBC) [Ratio] 13.5 % 11.6-14.6 [facility] Work Phone: [phone] Immature granulocytes/100 WBC (Bld) 0.800 % 0.0-0.9 [facility] Work Phone: [phone] Comment on above: IG% - Immature Granu locytes (promyelocytes, myelocytes and metamyelocytes) > 1% indicates that a LEFT SHIFT is Present. MCH (RBC) [Entitic mass] 25.9 pg 27.0-32.0 [facility] Work Phone: [phone] Nucleated RBC/100 WBC (Bld) [Ratio] 0 % 0-5 [facility] Work Phone: [phone] MCHC Auto (RBC) [Mass/Vol]on 01-23-2022 MCHC (RBC) [Mass/Vol] 33.1 g/dL 32-36 [facility] Work Phone: No Panel Informationon 01-23 Estimated Creatinine Clearance Calc 79.29 ml/min [facility] Work Phone: [phone] Estimated GFR (MDRD) Amer 85 mL/min >60 [facility] Work Phone: [phone] Comment on above: GFR Calc Estimated GFR (MDRD) Non-Af Amer 70 mL/min >60 [facility] Work Phone: [phone] Comment on above: Non- GFR Calc Platelets bldon 01-23-2022 Platelets (Bld) [#/Vol] 470 10*3/uL 150-450 [facility] Work Phone: [phone] Serum or plasma calcium hussein urement (mass/volume)on 01-23-2022 Calcium [Mass/Vol] 9.6 mg/dL 8.5-10.1 [facility] Work Phone: [phone] Serum or plasma creatinine m easurement (mass/volume)on 01-23-2022 Creatinine [Mass/Vol] 0.98 mg/dL 0.55-1.02 [facility] Work Phone: [phone] Comment on above: The validity of the calculated GFR & GFRAA in patients over 70 years has not been determined. Clinical correlation is essential. Serum or plasma urea nitroge n measurement (mass/volume)on 01-23-2022 Urea nitrogen [Mass/Vol] 17 mg/dL 7-18 [facility] Work Phone: [phone] Thin prep Papanicolaou smear with manual screeningon 01-23-2022 Thin prep Papanicolaou smear with manual screening 10 -15 [facility] Work Phone: [phone] Glucose Glucometer (BldC) [M ass/Vol]on 01-22-2022 Glucose [Mass/Vol] 320 mg/dL 74-106 [facility] Work Phone: Comment on above: MANAGEMENT OF PATIEN T CARE PER NURSING PROTOCOL Glucose Glucometer (BldC) [M ass/Vol]on 01-16-2022 Glucose [Mass/Vol] 440 mg/dL 74-106 [facility] Work Phone: [phone] Comment on above: MANAGEMENT OF PATIEN T CARE PER NURSING PROTOCOL Absolute lymphocyte counton 11-16-2021 Lymphocytes Auto (Unsp spec) [#/Vol] 2.57 10*3/uL 0.83-4.51 [facility] Work Phone: Basophil percentageon 2021 Basophils/100 WBC (Bld) 0.4 % 0-1 [facility] Work Phone: [phone] Bilirubin [Mass/Vol] 0.50 mg/dL 0.20-1.00 [facility] Work Phone: [phone] Comment on above: For patients on eltr ombopag therapy, use of [employer] TBIL is not recommended. Chloride [Moles/Vol] 99 mmol/L 98-107 [facility] Work Phone: [phone] Eosinophils/100 WBC (Bld) 0.6 % 0-5 [facility] Work Phone: [phone] Glucose [Mass/Vol] 331 mg/dL 74-106 [facility] Work Phone: [phone] Comment on above: Glucose result great er than or equal to 200 mg/dLsuggests DIABETES MELLITUS per A.D.A. criteria. Neutrophils (Bld) [#/Vol] 7.4 10*3/uL 2.0-7.7 [facility] Work Phone: [phone] Neutrophils/100 WBC (Bld) 68.0 % 47-70 [facility] Work Phone: [phone] Potassium [Moles/Vol] 4.1 mmol/L 3.5-5.1 [facility] Work Phone: [phone] Protein [Mass/Vol] 8.7 g/dL 6.4-8.2 [facility] Work Phone: [phone] Sodium [Moles/Vol] 133 mmol/L 136-145 [facility] Work Phone: [phone] WBC (Bld) [#/Vol] 10.9 10*3/uL 4.4-11.0 [facility] Work Phone: [phone] Blood erythrocytes count (nu mber/volume)on 11-16-2021 RBC (Bld) [#/Vol] 4.48 10*6/uL 4.2-5.4 [facility] Work Phone: [phone] Blood hemoglobin measurement (mass/volume)on 11-16-2021 Hemoglobin (Bld) [Mass/Vol] 11.9 g/dL 12.0-15.0 [facility] Work Phone: Blood lymphocytes/100 leukoc yteson 11-16-2021 Lymphocytes/100 WBC (Bld) 23.5 % 19-41 [facility] Work Phone: Blood monocytes/100 leukocyt eson 11-16-2021 Monocytes/100 WBC (Bld) 6.7 % 0-10 [facility] Work Phone: Blood platelet mean volumeon 11-16-2021 Platelet mean volume (Bld) [Entitic vol] 9.2 fL 6.2-12.0 [facility] Work Phone: [phone] Determination of erythrocyte mean corpuscular volume (MCV)on 11-16-2021 MCV (RBC) [Entitic vol] 81.9 fL 81-99 [facility] Work Phone: [phone] Hematocrit Auto (Bld) [Volum e fraction]on 11-16-2021 Hematocrit (Bld) [Volume fraction] 36.7 % 37-47 [facility] Work Phone: [phone] Laboratory - Chemistry and C hemistry - challengeon 11-16-2021 ALP [Catalytic activity/Vol] 130 U/L 45-117 [facility] Work Phone: [phone] ALT [Catalytic activity/Vol] 12 U/L 13-56 [facility] Work Phone: [phone] CO2 [Moles/Vol] 27.0 mmol/L 21.0-32.0 [facility] Work Phone: [phone] Globulin (S) [Mass/Vol] 6.0 g/dL 2.2-4.2 [facility] Work Phone: [phone] Urea nitrogen/Creatinine [Mass ratio] 10.7 mg/mg 10-20 [facility] Work Phone: [phone] Laboratory - Hematology and Cell countson 11-16-2021 Erythrocyte distribution width (RBC) [Entitic vol] 38.0 fL 35.1-43.9 [facility] Work Phone: [phone] Erythrocyte distribution width (RBC) [Ratio] 12.7 % 11.6-14.6 [facility] Work Phone: [phone] Immature granulocytes/100 WBC (Bld) 0.800 % 0.0-0.9 [facility] Work Phone: [phone] Comment on above: IG% - Immature Granu locytes (promyelocytes, myelocytes and metamyelocytes) > 1% indicates that a LEFT SHIFT is Present. MCH (RBC) [Entitic mass] 26.6 pg 27.0-32.0 [facility] Work Phone: [phone] Nucleated RBC/100 WBC (Bld) [Ratio] 0 % 0-5 [facility] Work Phone: [phone] MCHC Auto (RBC) [Mass/Vol]on 11-16-2021 MCHC (RBC) [Mass/Vol] 32.4 g/dL 32-36 [facility] Work Phone: No Panel Informationon 11-16 Estimated Creatinine Clearance Calc 103.61 ml/min [facility] Work Phone: Estimated GFR (MDRD) Amer 117 mL/min >60 [facility] Work Phone: Comment on above: GFR Calc Estimated GFR (MDRD) Non-Af Amer 96 mL/min >60 [facility] Work Phone: Comment on above: Non- GFR Calc Platelets bldon 11-16-2021 Platelets (Bld) [#/Vol] 471 10*3/uL 150-450 [facility] Work Phone: Serum or plasma albumin hussein urement (mass/volume)on 11-16-2021 Albumin [Mass/Vol] 2.7 g/dL 3.2-5.0 [facility] Work Phone: Serum or plasma albumin/glob ulin mass ratioon 11-16-2021 Albumin/Globulin [Mass ratio] 0.4 {ratio} 0.9-2.4 [facility] Work Phone: Serum or plasma calcium hussein urement (mass/volume)on 11-16-2021 Calcium [Mass/Vol] 8.9 mg/dL 8.5-10.1 [facility] Work Phone: [phone] Serum or plasma creatinine m easurement (mass/volume)on 11-16-2021 Creatinine [Mass/Vol] 0.75 mg/dL 0.55-1.02 [facility] Work Phone: Comment on above: The validity of the calculated GFR & GFRAA in patients over 70 years has not been determined. Clinical correlation is essential. Serum or plasma urea nitroge n measurement (mass/volume)on 11-16-2021 Urea nitrogen [Mass/Vol] 8 mg/dL 7-18 [facility] Work Phone: Thin prep Papanicolaou smear with manual screeningon 11-16-2021 Thin prep Papanicolaou smear with manual screening 6 U/L 15-37 [facility] Work Phone: Thin prep Papanicolaou smear with manual screening 7 5-15 [facility] Work Phone: Absolute lymphocyte counton 10-29-2021 Lymphocytes Auto (Unsp spec) [#/Vol] 2.98 10*3/uL 0.83-4.51 [facility] Work Phone: Basophil percentageon 2021 Basophils/100 WBC (Bld) 0.5 % 0-1 [facility] Work Phone: Bilirubin [Mass/Vol] 0.30 mg/dL 0.20-1.00 [facility] Work Phone: Comment on above: For patients on eltr ombopag therapy, use of [facility] TBIL is not recommended. Chloride [Moles/Vol] 99 mmol/L 98-107 [facility] Work Phone: Eosinophils/100 WBC (Bld) 0.2 % 0-5 [facility] Work Phone: [phone] Glucose [Mass/Vol] 387 mg/dL 74-106 [facility] Work Phone: Comment on above: Glucose result great er than or equal to 200 mg/dLsuggests DIABETES MELLITUS per A.D.A. criteria. Neutrophils (Bld) [#/Vol] 9.2 10*3/uL 2.0-7.7 [facility] Work Phone: Neutrophils/100 WBC (Bld) 70.3 % 47-70 [facility] Work Phone: Potassium [Moles/Vol] 4.4 mmol/L 3.5-5.1 [facility] Work Phone: Protein [Mass/Vol] 9.0 g/dL 6.4-8.2 [facility] Work Phone: [phone] Sodium [Moles/Vol] 130 mmol/L 136-145 [facility] Work Phone: WBC (Bld) [#/Vol] 13.0 10*3/uL 4.4-11.0 [facility] Work Phone: Blood erythrocytes count (nu mber/volume)on 10-29-2021 RBC (Bld) [#/Vol] 4.95 10*6/uL 4.2-5.4 [facility] Work Phone: [phone] Blood hemoglobin measurement (mass/volume)on 10-29-2021 Hemoglobin (Bld) [Mass/Vol] 13.3 g/dL 12.0-15.0 [facility] Work Phone: [phone] Blood lymphocytes/100 leukoc yteson 10-29-2021 Lymphocytes/100 WBC (Bld) 22.9 % 19-41 [facility] Work Phone: [phone] Blood monocytes/100 leukocyt eson 10-29-2021 Monocytes/100 WBC (Bld) 5.3 % 0-10 [facility] Work Phone: Blood platelet mean volumeon 10-29-2021 Platelet mean volume (Bld) [Entitic vol] 9.0 fL 6.2-12.0 [facility] Work Phone: Determination of erythrocyte mean corpuscular volume (MCV)on 10-29-2021 MCV (RBC) [Entitic vol] 80.0 fL 81-99 [facility] Work Phone: Hematocrit Auto (Bld) [Volum e fraction]on 10-29-2021 Hematocrit (Bld) [Volume fraction] 39.6 % 37-47 [facility] Work Phone: [phone] Laboratory - Chemistry and C hemistry - challengeon 10-29-2021 ALP [Catalytic activity/Vol] 156 U/L 45-117 [facility] Work Phone: [phone] ALT [Catalytic activity/Vol] 23 U/L 13-56 [facility] Work Phone: [phone] CO2 [Moles/Vol] 25.0 mmol/L 21.0-32.0 [facility] Work Phone: [phone] Globulin (S) [Mass/Vol] 5.9 g/dL 2.2-4.2 [facility] Work Phone: [phone] Urea nitrogen/Creatinine [Mass ratio] 13.8 mg/mg 10-20 [facility] Work Phone: [phone] Laboratory - Hematology and Cell countson 10-29-2021 Erythrocyte distribution width (RBC) [Entitic vol] 37.2 fL 35.1-43.9 [facility] Work Phone: [phone] Erythrocyte distribution width (RBC) [Ratio] 13.1 % 11.6-14.6 [facility] Work Phone: [phone] Immature granulocytes/100 WBC (Bld) 0.800 % 0.0-0.9 [facility] Work Phone: [phone] Comment on above: IG% - Immature Granu locytes (promyelocytes, myelocytes and metamyelocytes) > 1% indicates that a LEFT SHIFT is Present. MCH (RBC) [Entitic mass] 26.9 pg 27.0-32.0 [facility] Work Phone: [phone] Nucleated RBC/100 WBC (Bld) [Ratio] 0 % 0-5 [facility] Work Phone: [phone] MCHC Auto (RBC) [Mass/Vol]on 10-29-2021 MCHC (RBC) [Mass/Vol] 33.6 g/dL 32-36 [facility] Work Phone: [phone] Panel Informationon 10-29 Estimated Creatinine Clearance Calc 89.32 ml/min [facility] Work Phone: [phone] Estimated GFR (MDRD) Amer 99 mL/min >60 [facility] Work Phone: [phone] Comment on above: GFR Calc Estimated GFR (MDRD) Non-Af Amer 82 mL/min >60 [facility] Work Phone: [phone] Comment on above: Non- GFR Calc Platelets bldon 10-29-2021 Platelets (Bld) [#/Vol] 460 10*3/uL 150-450 [facility] Work Phone: Serum or plasma albumin hussein urement (mass/volume)on 10-29-2021 Albumin [Mass/Vol] 3.1 g/dL 3.2-5.0 [facility] Work Phone: Serum or plasma albumin/glob ulin mass ratioon 10-29-2021 Albumin/Globulin [Mass ratio] 0.5 {ratio} 0.9-2.4 [facility] Work Phone: Serum or plasma calcium hussein urement (mass/volume)on 10-29-2021 Calcium [Mass/Vol] 9.0 mg/dL 8.5-10.1 [facility] Work Phone: Serum or plasma choriogonado tropin detectionon 10-29-2021 HCG ( test) Ql < 1 mIU/mL <4 [facility] Work Phone: Comment on above: hCG levels with Gest ational AgeGestational Age hCG mIU/mL (IU/L)0.2 - 1 week 5 - 501-2 weeks 50 - 5002-3 weeks 100 - 83820-6 weeks 500 - 052705-7 weeks 1000 - 029795-2 weeks 10458 - 100,0006-8 weeks 66715 - 200,0002-3 months 10493 - 100,000 Serum or plasma creatinine m easurement (mass/volume)on 10-29-2021 Creatinine [Mass/Vol] 0.87 mg/dL 0.55-1.02 [facility] Work Phone: Comment on above: The validity of the calculated GFR & GFRAA in patients over 70 years has not been determined. Clinical correlation is essential. Serum or plasma urea nitroge n measurement (mass/volume)on 10-29-2021 Urea nitrogen [Mass/Vol] 12 mg/dL 7-18 [facility] Work Phone: Thin prep Papanicolaou smear with manual screeningon 10-29-2021 Thin prep Papanicolaou smear with manual screening 13 U/L 15-37 [facility] Work Phone: [phone] Thin prep Papanicolaou smear with manual screening 6 5-15 [facility] Work Phone: Absolute lymphocyte counton 08-10-2021 Lymphocytes Auto (Unsp spec) [#/Vol] 0.86 10*3/uL 0.83-4.51 [facility] Work Phone: Basophil percentageon 2021 Basophil percentage 5-10 SEEN /hpf [facility] Work Phone: Basophils/100 WBC (Bld) 0.2 % 0-1 [facility] Work Phone: Chloride [Moles/Vol] 100 mmol/L 98-107 [facility]: Eosinophils/100 WBC (Bld) 0.3 % 0-5 [facility] Work Phone: Glucose [Mass/Vol] 406 mg/dL 74-106 [facility] Work Phone: Comment on above: Glucose result great er than or equal to 200 mg/dLsuggests DIABETES MELLITUS per A.D.A. criteria. Neutrophils (Bld) [#/Vol] 12.4 10*3/uL 2.0-7.7 [facility] Work Phone: Neutrophils/100 WBC (Bld) 89.0 % 47-70 [facility] Work Phone: Potassium [Moles/Vol] 4.2 mmol/L 3.5-5.1 [facility] Work Phone: Sodium [Moles/Vol] 134 mmol/L 136-145 [facility] Work Phone: WBC (Bld) [#/Vol] 14.0 10*3/uL 4.4-11.0 [facility]: Beta hCG serum qualon 2021 Beta HCG ( test) Ql Negative [facility] Work Phone: Bilirubin Test strip Ql (U)o n 08-10-2021 Bilirubin Ql (U) Negative Negative [facility] Work Phone: Blood erythrocytes count (nu mber/volume)on 08-10-2021 RBC (Bld) [#/Vol] 5.34 10*6/uL 4.2-5.4 [facility] Work Phone: Blood hemoglobin measurement (mass/volume)on 08-10-2021 Hemoglobin (Bld) [Mass/Vol] 14.7 g/dL 12.0-15.0 [facility] Work Phone: [phone] Blood lymphocytes/100 leukoc yteson 08-10-2021 Lymphocytes/100 WBC (Bld) 6.1 % 19-41 [facility] Work Phone: [phone] Blood monocytes/100 leukocyt eson 08-10-2021 Monocytes/100 WBC (Bld) 4.0 % 0-10 [facility] Work Phone: [phone] Blood platelet mean volumeon 08-10-2021 Platelet mean volume (Bld) [Entitic vol] 9.6 fL 6.2-12.0 [facility] Work Phone: Determination of erythrocyte mean corpuscular volume (MCV)on 08-10-2021 MCV (RBC) [Entitic vol] 82.4 fL 81-99 [facility] Work Phone: Glucose Glucometer (BldC) [M ass/Vol]on 08-10-2021 Glucose [Mass/Vol] 377 mg/dL 70-110 [facility] Work Phone: Comment on above: MANAGEMENT OF PATIEN T CARE PER NURSING PROTOCOL Hematocrit Auto (Bld) [Volum e fraction]on 08-10-2021 Hematocrit (Bld) [Volume fraction] 44.0 % 37-47 [facility] Work Phone: [phone] Ketones Test strip Ql (U)on 08-10-2021 Ketones Ql (U) 150 mg/dl Negative [facility] Work Phone: Comment on above: CRITICAL VALUE *HCRI TICAL VALUE VERIFIED. CALLED TO Rafa PERAZA RN (ED)08/10/21 Manas Rebolledo.RESULTS READ BACK BY SAME . Laboratory - Chemistry and C hemistry - challengeon 08-10-2021 CO2 [Moles/Vol] 23.0 mmol/L 21.0-32.0 [facility] Work Phone: [phone] Urea nitrogen/Creatinine [Mass ratio] 18.6 mg/mg 10-20 [facility] Work Phone: [phone] Laboratory - Hematology and Cell countson 08-10-2021 Erythrocyte distribution width (RBC) [Entitic vol] 39.0 fL 35.1-43.9 [facility] Work Phone: [phone] Erythrocyte distribution width (RBC) [Ratio] 13.1 % 11.6-14.6 [facility] Work Phone: [phone] Immature granulocytes/100 WBC (Bld) 0.400 % 0.0-0.9 [facility] Work Phone: [phone] Comment on above: IG% - Immature Granu locytes (promyelocytes, myelocytes and metamyelocytes) > 1% indicates that a LEFT SHIFT is Present. MCH (RBC) [Entitic mass] 27.5 pg 27.0-32.0 [facility] Work Phone: [phone] Nucleated RBC/100 WBC (Bld) [Ratio] 0 % 0-5 [facility] Work Phone: [phone] MCHC Auto (RBC) [Mass/Vol]on 08-10-2021 MCHC (RBC) [Mass/Vol] 33.4 g/dL 32-36 [facility] Work Phone: [phone] Mucus LM Ql (Urine sed)on Mucus Ql (Urine sed) 0 SEEN /hpf [facility] Work Phone: [phone] Nitrite Test strip Ql (U)on 08-10-2021 Nitrite Ql (U) Negative Negative [facility] Work Phone: [phone] Panel Informationon 08-10 Estimated Creatinine Clearance Calc 90.36 ml/min [facility] Work Phone: [phone] Estimated GFR (MDRD) Amer 100 mL/min >60 [facility] Work Phone: [phone] Comment on above: GFR Calc Estimated GFR (MDRD) Non-Af Amer 83 mL/min >60 [facility] Work Phone: Comment on above: Non- GFR Calc Platelets bldon 08-10-2021 Platelets (Bld) [#/Vol] 343 10*3/uL 150-450 [facility] Work Phone: Protein Test strip Ql (U)on 08-10-2021 Protein Ql (U) 30 mg/dl Negative [facility] Work Phone: Serum or plasma calcium hussein urement (mass/volume)on 08-10-2021 Calcium [Mass/Vol] 8.8 mg/dL 8.5-10.1 [facility] Work Phone: Serum or plasma creatinine m easurement (mass/volume)on 08-10-2021 Creatinine [Mass/Vol] 0.86 mg/dL 0.55-1.02 [facility] Work Phone: Comment on above: The validity of the calculated GFR & GFRAA in patients over 70 years has not been determined. Clinical correlation is essential. Serum or plasma urea nitroge n measurement (mass/volume)on 08-10-2021 Urea nitrogen [Mass/Vol] 16 mg/dL 7-18 [facility] Work Phone: Squamous epithelial cells de tection in urine sediment by light microscopyon 08-10-2021 Epithelial cells.squamous LM Ql (Urine sed) 0-5 SEEN /hpf [facility] Work Phone: Thin prep Papanicolaou smear with manual screeningon 08-10-2021 Thin prep Papanicolaou smear with manual screening 11 5-15 [facility] Work Phone: Urine blood detectionon 07-14 0 RBC Ql (U) 250 /ul Negative [facility] Work Phone: RBC Ql (U) > 100 SEEN /hpf [facility] Work Phone: Urine clarityon 08-10-2021 Clarity (U) Cloudy Clear [facility] Work Phone: [phone] Urine color determinationon 08-10-2021 Color (U) Yellow Yellow [facility] Work Phone: Urine glucose detectionon Glucose Ql (U) 1000 mg/dl Normal [facility] Work Phone: Urine leukocyte esterase det ection by dipstickon 08-10-2021 Leukocyte esterase Test strip Ql (U) 25 /ul Negative [facility] Work Phone: Urine pHon 08-10-2021 pH (U) 7.0 [pH] [facility] Work Phone: Urine sediment bacteria coun t by microscopy (number/high power field)on 08-10-2021 Bacteria LM.HPF (Urine sed) [#/Area] 1 /[HPF] None Seen [facility] Work Phone: Urine specific gravity measu rementon 08-10-2021 Specific gravity (U) [Rel density] 1.005 [facility] Work Phone: Urobilinogen Auto test strip Ql (U)on 08-10-2021 Urobilinogen Ql (U) 1 mg/dl Normal [facility] Work Phone: XR Chest PA and Lateralon IMPRESSION: No acute radiographic abnormality. Hearing Aid Assistant: OLGA Transcribe Date/Time: May 15 2021 10:07A Dictated by : ELISEO LYON MD This examination was interpreted and the report reviewed and electronically signed by: ELISEO LYON MD on May 15 2021 10:08AM [facility] DIVISION OF RADIOLOGY * * *Final Report* * * DATE OF EXAM: May 15 2021 10:05AM WOX 5291 - XR CHEST 2V FRONTAL/LAT / PROCEDURE REASON: Cough * * * * Physician Interpretation * * * * EXAMINATION: CHEST RADIOGRAPH (2 VIEW FRONTAL & LATERAL) CLINICAL HISTORY: Cough MQ: XC2_6 EXAM DATE/TIME: 05/15/2021 10:05 AM COMPARISON: November 2018 RESULT: Lines, tubes, and devices: None. Lungs and pleura: No consolidation. No lung mass. No pleural effusion. No pneumothorax. Cardiomediastinal silhouette: Normal cardiomediastinal silhouette. Bones and soft tissues: Unremarkable. DIVISION OF RADIOLOGY Provider, Susana enamorado Brandon - 05/15/2021 * * *Final Report* * * DATE OF EXAM: May 15 2021 10:05AM WOX 5291 - XR CHEST 2V FRONTAL/LAT / PROCEDURE REASON: Cough * * * * Physician Interpretation * * * * EXAMINATION: CHEST RADIOGRAPH (2 VIEW FRONTAL & LATERAL) CLINICAL HISTORY: Cough MQ: XC2_6 EXAM DATE/TIME: 05/15/2021 10:05 AM COMPARISON: November 2018 RESULT: Lines, tubes, and devices: None. Lungs and pleura: No consolidation. No lung mass. No pleural effusion. No pneumothorax. Cardiomediastinal silhouette: Normal cardiomediastinal silhouette. Bones and soft tissues: Unremarkable. IMPRESSION IMPRESSION: No acute radiographic abnormality. Hearing Aid Assistant: PSCB Transcribe Date/Time: May 15 2021 10:07A Dictated by : ELISEO LYON MD This examination was interpreted and the report reviewed and electronically signed by: ELISEO LYON MD on May 15 2021 10:08AM EST [facility] Radiology Study observation (narrative) [facility] XR Chest PA and LateralOrder ed By: [facility] Provider on 05-15-2021 [facility] Anaerobic culture Bacteria identified Anaer cx Nom (Unsp spec) No anaerobic bacteria isolated. [facility] Work Phone: [phone] Bacteria identified Anaer cx Nom (Unsp spec) Anaerobic microbial culture No anaerobic bacteria isolated. [facility] Work Phone: Bacteria identified Cx Nom ( Wound) Wound Culture Meth. resistant Stap h. aureus [facility] Work Phone: Wound Culture Streptococcus agalactiae (B) [facility] Work Phone: COVID-19 virus antigen assay SARS-CoV-2 (COVID-19) Ag IA.rapid Ql (Resp) [facility] Work Phone: Culture, urine Bacteria identified Cx Nom (U) Culture exhibits no growth. [facility] Work Phone: [phone] Gram stain for investigation of transfusion reaction Microscopic observation Gram stain Nom (Unsp spec) [facility] Work Phone: Laboratory - Microbiology an d Antimicrobial susceptibility Bacteria identified Cx Nom (Bld) No growth in [address] [facility] Work Phone: Routine wound culture Bacteria identified Cx Nom (Wound) No growth aerobically. [facility] Work Phone: Vital Signs Date Time Vital Sign Value Performing Clinician Facility 12-13-2024 08:30-0400 Body height 167.64 cm Amy Solorzano [employer] Work Phone: [facility] 12-13-2024 08:30-0400 Body mass index (BMI) [Ratio] 39.2 kg/m2 Amy Solorzano [employer] Work Phone: [phone] [place] [address] 12-13-2024 08:30-0400 Body weight 110.22 kg Amy Solorzano [employer] Work Phone: [phone] [place] [address] 12-13-2024 08:30-0400 Diastolic blood pressure 97 mm[Hg] Amy Solorzano [employer] Work Phone: [phone] [place] [address] 12-13-2024 08:30-0400 Heart rate 93 /min Amy Solorzano [employer] Work Phone: [phone] [place] [address] 12-13-2024 08:30-0400 Respiratory rate 19 /min Amy Solorzano [employer] Work Phone: [phone] [place] [address] 12-13-2024 08:30-0400 SaO2% (BldA) [Mass fraction] 97 % Amy Solorzano [employer] Work Phone: [facility] 12-13-2024 08:30-0400 Systolic blood pressure 138 mm[Hg] Amy Solorzano [employer] Work Phone: [facility] 11-28-2024 13:00-0400 Body temperature 98 [degF] Amy Solorzano [employer] Work Phone: [facility] 11-28-2024 13:00-0400 Diastolic blood pressure 96 mm[Hg] Amy Solorzano [employer] Work Phone: [phone] [place] [address] 11-28-2024 13:00-0400 Heart rate 60 /min Amy Solorzano [employer] Work Phone: [phone] [place] [address] 11-28-2024 13:00-0400 SaO2% (BldA) [Mass fraction] 99 % Amy Solorzano [employer] Work Phone: [phone] [place] [address] 11-28-2024 13:00-0400 Systolic blood pressure 156 mm[Hg] Amy Solorzano [employer] SU[employer] Work Phone: [phone] [place] [address] 11-28-2024 08:25-0400 Body temperature 98.1 [degF] Amy Solorzano [employer] SUPER[employer] Work Phone: [phone] [place] [address] 11-28-2024 08:25-0400 Diastolic blood pressure 84 mm[Hg] Amy Solorzano [employer] SUPER[employer] Work Phone: [phone] [place] [address] 11-28-2024 08:25-0400 Heart rate 75 /min Amy Solorzano [employer] Work Phone: [phone] [place] [address] 11-28-2024 08:25-0400 Respiratory rate 18 /min Amy Solorzano [employer] Work Phone: [phone] [place] [address] 11-28-2024 08:25-0400 SaO2% (BldA) [Mass fraction] 97 % Amy Solorzano [employer] Work Phone: [phone] [place] [address] 11-28-2024 08:25-0400 Systolic blood pressure 154 mm[Hg] Amy Solorzano [employer] SUPER[employer] Work Phone: [phone] [place] [address] 11-27-2024 13:47-0400 Body height 167.64 cm Amy Solorzano [employer]PER[employer] Work Phone: [phone] [place] [address] 11-27-2024 13:47-0400 Body weight 110.7 kg Amy Solorzano [employer] Work Phone: [phone] [place] [address] 11-25-2024 14:54-0400 Body mass index (BMI) [Ratio] 39.4 kg/m2 Amy Solorzano [employer] Work Phone: [phone] [place] [address] 11-25-2024 14:00-0400 Diastolic blood pressure 91 mm[Hg] Amykeiko Solorzano [employer] SUPER[employer]C Work Phone: [facility] 11-25-2024 14:00-0400 Heart rate 91 /min Amy Rashad [employer] Work Phone: [facility] 11-25-2024 14:00-0400 Respiratory rate 18 /min Amykeiko Solorzano [employer] SUPER[employer] Work Phone: [facility] 11-25-2024 14:00-0400 SaO2% (BldA) [Mass fraction] 95 % Amy Rashad [employer] SUPER[employer] Work Phone: [phone] [place] [address] 11-25-2024 14:00-0400 Systolic blood pressure 129 mm[Hg] Amykeiko Solorzano [employer] SUPER[employer]C Work Phone: [facility] 11-25-2024 11:00-0400 Body temperature 97.6 [degF] Amy Solorzano [employer] SUPER[employer] Work Phone: [phone] [place] [address] 11-25-2024 08:48-0400 Body height 167.64 cm Amykeiko Solorzano [employer] SUPER[employer] Work Phone: [phone] [place] [address] 11-25-2024 08:48-0400 Body mass index (BMI) [Ratio] 40.9 kg/m2 Amykeiko Solorzano [employer] SUPER[employer] Work Phone: [phone] [place] [address] 11-25-2024 08:48-0400 Body weight 115.03 kg Amy Solorzano [employer] SUPER[employer] Work Phone: [phone] [place] [address] 07-03-2024 12:26-0500 Body mass index (BMI) [Ratio] 40.02 kg/m2 Vinnielydesirae Aberegg PA Work Phone: [facility] 07-03-2024 12:26-0500 Body temperature 97 [degF] Krislyn Aberegg PA Work Phone: [facility] 07-03-2024 12:26-0500 Body weight 115.9 kg Krislyn Aberegg PA Work Phone: [facility] 07-03-2024 12:26-0500 Diastolic blood pressure 90 mm[Hg] Krislyn Aberegg PA Work Phone: [facility] 07-03-2024 12:26-0500 Heart rate 104 /min Krislyn Aberegg PA Work Phone: [facility] 07-03-2024 12:26-0500 Respiratory rate 16 /min Krislyn Aberegg PA Work Phone: [facility] 07-03-2024 12:26-0500 SaO2% (BldA) [Mass fraction] 100 % Krislyn Aberegg PA Work Phone: [facility] 07-03-2024 12:26-0500 Systolic blood pressure 122 mm[Hg] Krislyn Aberegg PA Work Phone: [facility] 06-26-2024 10:36-0500 Body mass index (BMI) [Ratio] 39.95 kg/m2 Frantz Clutter PA-C Work Phone: [facility] 06-26-2024 10:36-0500 Body temperature 97.39 [degF] Frantz Clutter PA-C Work Phone: [facility] 06-26-2024 10:36-0500 Body weight 115.7 kg Frantz Clutter PA-C Work Phone: [facility] 06-26-2024 10:36-0500 Diastolic blood pressure 78 mm[Hg] Frantz Clutter PA-C Work Phone: [facility] 06-26-2024 10:36-0500 Heart rate 117 /min Frantz Clutter PA-C Work Phone: [facility] 06-26-2024 10:36-0500 Respiratory rate 18 /min Frantz Clutter PA-C Work Phone: [facility] 06-26-2024 10:36-0500 SaO2% (BldA) [Mass fraction] 97 % Frantz Clutter PA-C Work Phone: [facility] 06-26-2024 10:36-0500 Systolic blood pressure 122 mm[Hg] Frantz Arevalo PA-C Work Phone: [facility] 07-23-2023 11:30-0500 Body temperature 96.9 [degF] No Primary Care Physician [facility] 07-23-2023 11:30-0500 Diastolic blood pressure 82 mm[Hg] No Primary Care Physician [facility] 07-23-2023 11:30-0500 Heart rate 80 /min No Primary Care Physician [facility] 07-23-2023 11:30-0500 Respiratory rate 16 /min No Primary Care Physician [facility] 07-23-2023 11:30-0500 SaO2% (BldA) [Mass fraction] 99 % No Primary Care Physician [facility] 07-23-2023 11:30-0500 Systolic blood pressure 117 mm[Hg] No Primary Care Physician [facility] [facility] 07-23-2023 11:05-0500 Inhaled oxygen flow rate 4 L/min No Primary Care Physician [facility] 07-23-2023 08:34-0500 Body height 167.64 cm No Primary Care Physician [facility] 07-23-2023 08:34-0500 Body mass index (BMI) [Ratio] 32.5 kg/m2 No Primary Care Physician [facility] 07-23-2023 08:34-0500 Body weight 91.62 kg No Primary Care Physician [facility] 07-12-2023 10:13-0500 Body mass index (BMI) [Ratio] 32.1 kg/m2 No Primary Care Physician [facility] 07-12-2023 10:13-0500 Body temperature 98.2 [degF] No Primary Care Physician [facility] 07-12-2023 10:13-0500 Body weight 90.4 kg No Primary Care Physician [facility] 07-12-2023 10:13-0500 Diastolic blood pressure 90 mm[Hg] No Primary Care Physician [facility] 07-12-2023 10:13-0500 Heart rate 98 /min No Primary Care Physician [facility] 07-12-2023 10:13-0500 Respiratory rate 14 /min No Primary Care Physician [facility] 07-12-2023 10:13-0500 SaO2% (BldA) [Mass fraction] 100 % No Primary Care Physician [facility] 07-12-2023 10:13-0500 Systolic blood pressure 124 mm[Hg] No Primary Care Physician [facility] 07-02-2023 09:17-0500 Diastolic blood pressure 94 mm[Hg] No Primary Care Physician [facility] 07-02-2023 09:17-0500 Systolic blood pressure 142 mm[Hg] No Primary Care Physician [facility] 07-02-2023 09:14-0500 Body height 167.64 cm No Primary Care Physician [facility] 07-02-2023 09:14-0500 Body temperature 96.4 [degF] No Primary Care Physician [facility] 07-02-2023 09:14-0500 Heart rate 100 /min No Primary Care Physician [facility] 07-02-2023 09:14-0500 Respiratory rate 16 /min No Primary Care Physician [facility] 07-02-2023 09:14-0500 SaO2% (BldA) [Mass fraction] 100 % No Primary Care Physician [facility] 07-01-2023 10:07-0500 Body temperature 97 [degF] Andres Galaviz DIAMOND SORTER.AVIONIC TECHNICIAN Work Phone: [facility] 07-01-2023 10:07-0500 Body weight 93.44 kg Andres Galaviz DIAMOND SORTER.AVIONIC TECHNICIAN Work Phone: [facility] 07-01-2023 10:07-0500 Diastolic blood pressure 82 mm[Hg] Andres Galaviz DIAMOND SORTER.AVIONIC TECHNICIAN Work Phone: [facility] 07-01-2023 10:07-0500 Heart rate 91 /min Andres Galaviz DIAMOND SORTER.AVIONIC TECHNICIAN Work Phone: [facility] 07-01-2023 10:07-0500 Respiratory rate 18 /min Andres Galaviz DIAMOND SORTER.AVIONIC TECHNICIAN Work Phone: [facility] 07-01-2023 10:07-0500 SaO2% (BldA) [Mass fraction] 100 % Andres Galaviz DIAMOND SORTER.AVIONIC TECHNICIAN Work Phone: [facility] 07-01-2023 10:07-0500 Systolic blood pressure 117 mm[Hg] Andres Lopezjosé luis MARTINEZAVIONIC TECHNICIAN Work Phone: [facility] 06-30-2023 13:41-0500 Heart rate 72 /min No Primary Care Physician [facility] 06-30-2023 13:41-0500 Respiratory rate 16 /min No Primary Care Physician [facility] 06-30-2023 13:41-0500 SaO2% (BldA) [Mass fraction] 98 % No Primary Care Physician [facility] 06-30-2023 09:24-0500 Body mass index (BMI) [Ratio] 34 kg/m2 No Primary Care Physician [facility] 06-30-2023 09:24-0500 Body weight 95.7 kg No Primary Care Physician [facility] 06-30-2023 08:22-0500 Body temperature 98 [degF] No Primary Care Physician [facility] 06-30-2023 08:22-0500 Diastolic blood pressure 110 mm[Hg] No Primary Care Physician [facility] 06-30-2023 08:22-0500 Systolic blood pressure 170 mm[Hg] No Primary Care Physician [facility] 06-28-2023 09:17-0500 Body height 167.64 cm No Primary Care Physician [facility] 06-28-2023 09:17-0500 Body mass index (BMI) [Ratio] 33.6 kg/m2 No Primary Care Physician [facility] 06-28-2023 09:17-0500 Body temperature 98.2 [degF] No Primary Care Physician [facility] 06-28-2023 09:17-0500 Body weight 94.5 kg No Primary Care Physician [facility] 06-28-2023 09:17-0500 Diastolic blood pressure 105 mm[Hg] No Primary Care Physician [facility] 06-28-2023 09:17-0500 Heart rate 82 /min No Primary Care Physician [facility] 06-28-2023 09:17-0500 Respiratory rate 14 /min No Primary Care Physician [facility] 06-28-2023 09:17-0500 SaO2% (BldA) [Mass fraction] 99 % No Primary Care Physician [facility] 06-28-2023 09:17-0500 Systolic blood pressure 154 mm[Hg] No Primary Care Physician [facility] 06-27-2023 05:50-0500 Body height 167.64 cm No Primary Care Physician [facility] 06-27-2023 05:50-0500 Body mass index (BMI) [Ratio] 34 kg/m2 No Primary Care Physician [facility] 06-27-2023 05:50-0500 Body temperature 98.6 [degF] No Primary Care Physician [facility] 06-27-2023 05:50-0500 Body weight 95.7 kg No Primary Care Physician [facility] 06-27-2023 05:50-0500 Diastolic blood pressure 98 mm[Hg] No Primary Care Physician [facility] 06-27-2023 05:50-0500 Heart rate 85 /min No Primary Care Physician [facility] 06-27-2023 05:50-0500 Respiratory rate 16 /min No Primary Care Physician [facility] 06-27-2023 05:50-0500 SaO2% (BldA) [Mass fraction] 99 % No Primary Care Physician [facility] 06-27-2023 05:50-0500 Systolic blood pressure 163 mm[Hg] No Primary Care Physician [facility] 06-26-2023 17:04-0500 Heart rate 74 /min No Primary Care Physician [facility] 06-26-2023 17:04-0500 Respiratory rate 18 /min No Primary Care Physician [facility] 06-26-2023 17:04-0500 SaO2% (BldA) [Mass fraction] 97 % No Primary Care Physician [facility] 06-26-2023 11:30-0500 Body height 167.64 cm No Primary Care Physician [facility] 06-26-2023 11:30-0500 Body mass index (BMI) [Ratio] 34.1 kg/m2 No Primary Care Physician [facility] 06-26-2023 11:30-0500 Body temperature 97 [degF] No Primary Care Physician [facility] 06-26-2023 11:30-0500 Body weight 95.98 kg No Primary Care Physician [facility] 06-26-2023 11:30-0500 Diastolic blood pressure 120 mm[Hg] No Primary Care Physician [facility] 06-26-2023 11:30-0500 Systolic blood pressure 135 mm[Hg] No Primary Care Physician [facility] 06-25-2023 12:33-0500 Diastolic blood pressure 69 mm[Hg] No Primary Care Physician [facility] 06-25-2023 12:33-0500 Heart rate 82 /min No Primary Care Physician [facility] 06-25-2023 12:33-0500 Respiratory rate 16 /min No Primary Care Physician [facility] 06-25-2023 12:33-0500 SaO2% (BldA) [Mass fraction] 100 % No Primary Care Physician [facility] 06-25-2023 12:33-0500 Systolic blood pressure 124 mm[Hg] No Primary Care Physician [facility] 06-25-2023 09:27-0500 Body height 168 cm No Primary Care Physician [facility] 06-25-2023 09:27-0500 Body mass index (BMI) [Ratio] 32.1 kg/m2 No Primary Care Physician [facility] 06-25-2023 09:27-0500 Body temperature 96.5 [degF] No Primary Care Physician [facility] 06-25-2023 09:27-0500 Body weight 90.71 kg No Primary Care Physician [facility] 05-09-2023 14:02-0400 Body temperature 98.4 [degF] No Primary Care Physician [facility] 05-09-2023 14:02-0400 Diastolic blood pressure 102 mm[Hg] No Primary Care Physician [facility] 05-09-2023 14:02-0400 Heart rate 74 /min No Primary Care Physician [facility] 05-09-2023 14:02-0400 Respiratory rate 18 /min No Primary Care Physician [facility] 05-09-2023 14:02-0400 SaO2% (BldA) [Mass fraction] 100 % No Primary Care Physician [facility] 05-09-2023 14:02-0400 Systolic blood pressure 177 mm[Hg] No Primary Care Physician [facility] 05-09-2023 13:32-0400 Body temperature 98.4 [degF] [facility] Work Phone: [facility] 05-09-2023 13:32-0400 Diastolic blood pressure 121 mm[Hg] [facility] Work Phone: 2(547)313-578248 [place] [address] 05-09-2023 13:32-0400 Heart rate 74 /min [facility] Work Phone: 2(774)552-539848 [place] [address] 05-09-2023 13:32-0400 Respiratory rate 18 /min [facility] Work Phone: 9(637)333-312348 [place] [address] 05-09-2023 13:32-0400 SaO2% (BldA) [Mass fraction] 100 % [facility] Work Phone: 1(566)824-735348 [place] [address] 05-09-2023 13:32-0400 Systolic blood pressure 177 mm[Hg] [facility] Work Phone: 3(716)289-137948 [place] [address] 05-07-2023 11:35-0400 Body height 167.64 cm [facility] Work Phone: 0(511)986-050748 [place] [address] 05-07-2023 11:35-0400 Body mass index (BMI) [Ratio] 33.5 kg/m2 [facility] Work Phone: 5(862)209-269348 [place] [address] 05-07-2023 11:35-0400 Body weight 94.2 kg [facility] Work Phone: 9(497)229-107348 [place] [address] 05-04-2023 15:23-0400 Body height 167.64 cm [facility] Work Phone: 9(751)173-099448 [place] [address] 05-04-2023 15:23-0400 Body mass index (BMI) [Ratio] 33.5 kg/m2 [facility] Work Phone: 8(660)508-177548 [place] [address] 05-04-2023 15:23-0400 Body temperature 97.4 [degF] [facility] Work Phone: 2(086)777-736048 [place] [address] 05-04-2023 15:23-0400 Body weight 94.2 kg [facility] Work Phone: 2(757)523-793448 [place] [address] 05-04-2023 15:23-0400 Diastolic blood pressure 69 mm[Hg] [facility] Work Phone: 2(715)234-688048 [place] [address] 05-04-2023 15:23-0400 Heart rate 84 /min [facility] Work Phone: 6(677)259-756948 [place] [address] 05-04-2023 15:23-0400 Inhaled oxygen flow rate 96 L/min [facility] Work Phone: 7(995)471-993348 [place] [address] 05-04-2023 15:23-0400 Respiratory rate 16 /min [facility] Work Phone: 3(599)087-552848 [place] [address] 05-04-2023 15:23-0400 Systolic blood pressure 134 mm[Hg] [facility] Work Phone: 9(758)798-041448 [place] [address] 05-04-2023 14:51-0400 SaO2% (BldA) [Mass fraction] 97 % [facility] Work Phone: 1(498)621-535548 [place] [address] 04-15-2023 13:43-0400 Diastolic blood pressure 58 mm[Hg] [facility] Work Phone: 5(042)191-974348 [place] [address] 04-15-2023 13:43-0400 Heart rate 72 /min [facility] Work Phone: 7(945)508-835248 [place] [address] 04-15-2023 13:43-0400 Respiratory rate 16 /min [facility] Work Phone: 3(060)135-961848 [place] [address] 04-15-2023 13:43-0400 SaO2% (BldA) [Mass fraction] 99 % [facility] Work Phone: 7(725)927-461448 [place] [address] 04-15-2023 13:43-0400 Systolic blood pressure 122 mm[Hg] [facility] Work Phone: 4(467)555-391848 [place] [address] 04-15-2023 11:17-0400 Body mass index (BMI) [Ratio] 29.3 kg/m2 [facility] Work Phone: 8(417)812-132148 [place] [address] 04-15-2023 11:17-0400 Body temperature 97 [degF] [facility] Work Phone: 1(057)930-318248 [place] [address] 04-15-2023 11:17-0400 Body weight 82.4 kg [facility] Work Phone: 2(667)432-547148 [place] [address] 04-14-2023 11:51-0400 Body mass index (BMI) [Ratio] 32.3 kg/m2 [facility] Work Phone: 4(743)493-482648 [place] [address] 04-14-2023 11:51-0400 Body temperature 97.2 [degF] [facility] Work Phone: 6(459)796-765348 [place] [address] 04-14-2023 11:51-0400 Body weight 90.71 kg [facility] Work Phone: 6(632)172-946448 [place] [address] 04-14-2023 11:51-0400 Diastolic blood pressure 92 mm[Hg] [facility] Work Phone: 3(299)710-154048 [place] [address] 04-14-2023 11:51-0400 Heart rate 102 /min [facility] Work Phone: 0(174)364-330448 [place] [address] 04-14-2023 11:51-0400 Respiratory rate 24 /min [facility] Work Phone: 5(260)314-936048 [place] [address] 04-14-2023 11:51-0400 SaO2% (BldA) [Mass fraction] 100 % [facility] Work Phone: 6(207)544-107348 [place] [address] 04-14-2023 11:51-0400 Systolic blood pressure 131 mm[Hg] [facility] Work Phone: 8(426)398-075748 [place] [address] 04-13-2023 10:36-0400 Diastolic blood pressure 78 mm[Hg] [facility] Work Phone: 6(678)110-783348 [place] [address] 04-13-2023 10:36-0400 Heart rate 64 /min [facility] Work Phone: 3(259)448-854848 [place] [address] 04-13-2023 10:36-0400 Respiratory rate 14 /min [facility] Work Phone: 0(869)280-285848 [place] [address] 04-13-2023 10:36-0400 SaO2% (BldA) [Mass fraction] 98 % [facility] Work Phone: 3(543)898-717748 [place] [address] 04-13-2023 10:36-0400 Systolic blood pressure 108 mm[Hg] [facility] Work Phone: 3(766)642-696448 [place] [address] 04-13-2023 08:59-0400 Body mass index (BMI) [Ratio] 32.3 kg/m2 [facility] Work Phone: 5(388)346-259948 [place] [address] 04-13-2023 08:59-0400 Body temperature 95.9 [degF] [facility] Work Phone: 5(194)540-992948 [place] [address] 04-13-2023 08:59-0400 Body weight 90.71 kg [facility] Work Phone: 6(763)440-823648 [place] [address] 03-06-2023 08:15-0400 Body height 167.64 cm [facility] Work Phone: 5(109)079-785948 [place] [address] 03-06-2023 08:15-0400 Body mass index (BMI) [Ratio] 32.5 kg/m2 [facility] Work Phone: 4(468)499-243648 [place] [address] 03-06-2023 08:15-0400 Body temperature 97 [degF] [facility] Work Phone: 9(939)371-726748 [place] [address] 03-06-2023 08:15-0400 Body weight 91.3 kg [facility] Work Phone: 3(717)570-689048 [place] [address] 03-06-2023 08:15-0400 Diastolic blood pressure 113 mm[Hg] [facility] Work Phone: 1(307)843-795548 [place] [address] 03-06-2023 08:15-0400 Heart rate 100 /min [facility] Work Phone: 8(205)360-664748 [place] [address] 03-06-2023 08:15-0400 Respiratory rate 14 /min [facility] Work Phone: 2(235)853-844048 [place] [address] 03-06-2023 08:15-0400 SaO2% (BldA) [Mass fraction] 100 % [facility] Work Phone: 0(033)788-107248 [place] [address] 03-06-2023 08:15-0400 Systolic blood pressure 153 mm[Hg] [facility] Work Phone: 3(302)548-920248 [place] [address] 03-01-2023 10:40-0400 Body height 170.2 cm Dewayne Doran MD Work Phone: [facility] 03-01-2023 10:40-0400 Body temperature 98.2 [degF] Dewayne Doran MD Work Phone: [facility] 03-01-2023 10:40-0400 Body weight 90.1 kg Dewayne Doran MD Work Phone: [facility] 03-01-2023 10:40-0400 Diastolic blood pressure 87 mm[Hg] Dewayne Doran MD Work Phone: [facility] 03-01-2023 10:40-0400 Heart rate 109 /min Dewayne Doran MD Work Phone: [facility] 03-01-2023 10:40-0400 SaO2% (BldA) [Mass fraction] 97 % Dewayne Doran MD Work Phone: [facility] 03-01-2023 10:40-0400 Systolic blood pressure 119 mm[Hg] Dewayne Doran MD Work Phone: [facility] 02-26-2023 03:54-0400 Diastolic blood pressure 63 mm[Hg] [facility] Work Phone: 1(909)227-314048 [place] [address] 02-26-2023 03:54-0400 Heart rate 68 /min [facility] Work Phone: 9(975)271-661303 [address] 02-26-2023 03:54-0400 Respiratory rate 15 /min [facility] Work Phone: 2(570)973-533848 [place] [address] 02-26-2023 03:54-0400 SaO2% (BldA) [Mass fraction] 97 % [facility] Work Phone: 6(424)443-406148 [place] [address] 02-26-2023 03:54-0400 Systolic blood pressure 107 mm[Hg] [facility] Work Phone: 5(897)233-212448 [place] [address] 02-25-2023 23:59-0400 Body height 167.64 cm [facility] Work Phone: 1(415)414-824703 [address] 02-25-2023 23:59-0400 Body mass index (BMI) [Ratio] 31.8 kg/m2 [facility] Work Phone: 9(255)967-476848 [place] [address] 02-25-2023 23:59-0400 Body temperature 98 [degF] [facility] Work Phone: 5(513)341-026648 [place] [address] 02-25-2023 23:59-0400 Body weight 89.44 kg [facility] Work Phone: 9(614)011-574048 [place] [address] 02-24-2023 12:55-0400 Diastolic blood pressure 93 mm[Hg] [facility] Work Phone: 3(891)378-200248 [place] [address] 02-24-2023 12:55-0400 Heart rate 85 /min [facility] Work Phone: 8(628)245-479648 [place] [address] 02-24-2023 12:55-0400 Respiratory rate 18 /min [facility] Work Phone: 7(033)805-550748 [place] [address] 02-24-2023 12:55-0400 SaO2% (BldA) [Mass fraction] 96 % [facility] Work Phone: 5(089)530-596248 [place] [address] 02-24-2023 12:55-0400 Systolic blood pressure 124 mm[Hg] [facility] Work Phone: 2(601)803-186048 [place] [address] 02-24-2023 11:32-0400 Body mass index (BMI) [Ratio] 32.4 kg/m2 [facility] Work Phone: 8(078)005-626348 [place] [address] 02-24-2023 11:32-0400 Body temperature 97.8 [degF] [facility] Work Phone: 8(855)708-352448 [place] [address] 02-24-2023 11:32-0400 Body weight 91.22 kg [facility] Work Phone: 0(597)001-235348 [place] [address] 02-23-2023 09:59-0400 Body temperature 97.11 [degF] Pilar Magdaleno APRN.AVIONIC TECHNICIAN Work Phone: [facility] 02-23-2023 09:59-0400 Body weight 91.17 kg Pilar Magdaleno APRN.AVIONIC TECHNICIAN Work Phone: [facility] 02-23-2023 09:59-0400 Diastolic blood pressure 74 mm[Hg] Pilar Magdaleno APRN.CNP Work Phone: [facility] 02-23-2023 09:59-0400 Heart rate 88 /min Pilar Magdaleno APRN.AVIONIC TECHNICIAN Work Phone: [facility] 02-23-2023 09:59-0400 Respiratory rate 16 /min Pilar Rasta DIAMOND SORTER.AVIONIC TECHNICIAN Work Phone: [facility] 02-23-2023 09:59-0400 Systolic blood pressure 118 mm[Hg] Pilar Rasta ADRLINGN.AVIONIC TECHNICIAN Work Phone: [facility] 02-11-2023 15:17-0400 Body temperature 97.88 [degF] HELENA SILVERMAN DIAMOND SORTER-AVIONIC TECHNICIAN [facility] 02-11-2023 15:17-0400 Diastolic Blood Pressure Non-Invasive 86 1 HELENA SILVERMAN DIAMOND SORTER-AVIONIC TECHNICIAN [facility] 02-11-2023 15:17-0400 Heart rate 67 /min HELENA SILVERMAN DIAMOND SORTER-AVIONIC TECHNICIAN [facility] 02-11-2023 15:17-0400 Reason For Taking VItal Signs HELENA SILVERMAN DIAMOND SORTER-AVIONIC TECHNICIAN [facility] 02-11-2023 15:17-0400 Systolic Blood Pressure Non-Invasive 137 1 HELENA SILVERMAN DIAMOND SORTER-AVIONIC TECHNICIAN [facility] 02-11-2023 11:58-0400 Body temperature 97.7 [degF] HELENA SILVERMAN DIAMOND SORTER-AVIONIC TECHNICIAN [facility] 02-11-2023 11:58-0400 Diastolic Blood Pressure Non-Invasive 94 1 HELENA SILVERMAN DIAMOND SORTER-AVIONIC TECHNICIAN [facility] 02-11-2023 11:58-0400 Heart rate 68 /min HELENA SILVERMAN DIAMOND SORTER-AVIONIC TECHNICIAN [facility] 02-11-2023 11:58-0400 Reason For Taking VItal Signs HELENA FOITH DIAMOND SORTER-AVIONIC TECHNICIAN [facility] 02-11-2023 11:58-0400 Respiratory rate 18 /min HELENA SILVERMAN DIAMOND SORTER-AVIONIC TECHNICIAN [facility] 02-11-2023 11:58-0400 Systolic Blood Pressure Non-Invasive 138 1 HELENA SILVERMAN DIAMOND SORTER-AVIONIC TECHNICIAN [facility] 02-11-2023 07:52-0400 Body temperature 98.06 [degF] HELENA HERRERA DIAMOND SORTER-AVIONIC TECHNICIAN [facility] 02-11-2023 07:52-0400 Diastolic Blood Pressure Non-Invasive 82 1 HELENA SILVERMAN DIAMOND SORTER-AVIONIC TECHNICIAN [facility] 02-11-2023 07:52-0400 Heart rate 75 /min HELENA SILVERMAN DIAMOND SORTER-AVIONIC TECHNICIAN [facility] 02-11-2023 07:52-0400 Reason For Taking VItal Signs HELENA SILVERMAN DIAMOND SORTER-AVIONIC TECHNICIAN [facility] 02-11-2023 07:52-0400 Respiratory rate 18 /min HELENA SILVERMAN DIAMOND SORTER-AVIONIC TECHNICIAN [facility] 02-11-2023 07:52-0400 Systolic Blood Pressure Non-Invasive 127 1 HELENA HERRERA DIAMOND SORTER-AVIONIC TECHNICIAN [facility] 02-11-2023 05:25-0400 Respiratory rate 18 /min HELENA SILVERMAN DIAMOND SORTER-AVIONIC TECHNICIAN [facility] 02-11-2023 01:49-0400 Body height 169.9 cm HELENA SILVERMAN DIAMOND SORTER-AVIONIC TECHNICIAN [facility] 08-03-2023 01:49-0400 Body weight 94.4 kg HELENA HERRERA DIAMOND SORTER-AVIONIC TECHNICIAN [facility] 02-11-2023 01:49-0400 Body weight 32.7 kg/m2 HELENA HERRERA DIAMOND SORTER-AVIONIC TECHNICIAN [facility] 02-10-2023 23:34-0400 Blood Pressure Cuff Size HELENA HERRERA DARLINGN-AVIONIC TECHNICIAN [facility] 02-10-2023 23:34-0400 Blood Pressure Location HELENA HERRERA DIAMOND SORTER-AVIONIC TECHNICIAN [facility] 02-10-2023 23:34-0400 Blood Pressure Method HELENA HERRERA DARLINGN-AVIONIC TECHNICIAN [facility] 02-10-2023 23:34-0400 Body height 167.6 cm HELENA HERRERA DIAMOND SORTER-AVIONIC TECHNICIAN [facility] 02-10-2023 23:34-0400 Body temperature 98.24 [degF] HELENA HERRERA DIAMOND SORTER-AVIONIC TECHNICIAN [facility] 02-10-2023 23:34-0400 Body weight 97.7 kg HELENA HERRERA DIAMOND SORTER-AVIONIC TECHNICIAN [facility] 02-10-2023 23:34-0400 Heart rate 90 /min HELENA HERRERA DIAMOND SORTER-AVIONIC TECHNICIAN [facility] 02-08-2023 15:46-0400 Heart rate 97 /min [facility] Work Phone: [facility] 02-08-2023 15:46-0400 Respiratory rate 21 /min [facility] Work Phone: [facility] 02-08-2023 15:46-0400 SaO2% (BldA) [Mass fraction] 96 % [facility] Work Phone: 7(357)155-402848 [place] [address] 02-08-2023 11:06-0400 Body height 167.64 cm [facility] Work Phone: 2(934)432-418348 [place] [address] 02-08-2023 11:06-0400 Body mass index (BMI) [Ratio] 34 kg/m2 [facility] Work Phone: 7(709)372-205548 [place] [address] 02-08-2023 11:06-0400 Body temperature 96 [degF] [facility] Work Phone: 2(713)776-982148 [place] [address] 02-08-2023 11:06-0400 Body weight 95.52 kg [facility] Work Phone: 5(001)739-630748 [place] [address] 02-08-2023 11:06-0400 Diastolic blood pressure 90 mm[Hg] [facility] Work Phone: 7(264)195-440448 [place] [address] 02-08-2023 11:06-0400 Systolic blood pressure 149 mm[Hg] [facility] Work Phone: 2(249)629-417748 [place] [address] 01-25-2023 11:35-0400 Body height 167.64 cm [facility] Work Phone: 6(939)825-009948 [place] [address] 01-25-2023 11:35-0400 Body mass index (BMI) [Ratio] 35.2 kg/m2 [facility] Work Phone: 7(300)413-500248 [place] [address] 01-25-2023 11:35-0400 Body temperature 96 [degF] [facility] Work Phone: 9(240)869-082148 [place] [address] 01-25-2023 11:35-0400 Body weight 98.8 kg [facility] Work Phone: 8(740)669-549748 [place] [address] 01-25-2023 11:35-0400 Diastolic blood pressure 87 mm[Hg] [facility] Work Phone: 4(634)189-563148 [place] [address] 01-25-2023 11:35-0400 Heart rate 86 /min [facility] Work Phone: 4(705)[phone] [place] [address] 01-25-2023 11:35-0400 Respiratory rate 14 /min [facility] Work Phone: 3(097)381-823448 [place] [address] 01-25-2023 11:35-0400 SaO2% (BldA) [Mass fraction] 100 % [facility] Work Phone: [facility] 01-25-2023 11:35-0400 Systolic blood pressure 123 mm[Hg] [facility] Work Phone: [facility] 01-24-2023 12:38-0400 Diastolic blood pressure 74 mm[Hg] Abdirizak Ramirez MD Work Phone: [facility] 01-24-2023 12:38-0400 Heart rate 70 /min Abdirizak Ramirez MD Work Phone: [facility] 01-24-2023 12:38-0400 SaO2% (BldA) [Mass fraction] 98 % Abdirizak Ramirez MD Work Phone: [facility] 01-24-2023 12:38-0400 Systolic blood pressure 129 mm[Hg] Abdirizak Ramirez MD Work Phone: [facility] 01-24-2023 12:09-0400 Respiratory rate 15 /min Abdirizak Ramirez MD Work Phone: [facility] 01-24-2023 10:28-0400 Body height 167.6 cm Abdirizak Ramirez MD Work Phone: [facility] 01-24-2023 10:28-0400 Body mass index (BMI) [Ratio] 37.12 kg/m2 Abdirizak Ramirez MD Work Phone: [facility] 01-24-2023 10:28-0400 Body temperature 97.3 [degF] Abdirizak Ramirez MD Work Phone: [facility] 01-24-2023 10:28-0400 Body weight 104.33 kg Abdirizak Ramirez MD Work Phone: [facility] 01-15-2023 15:08-0400 Body temperature 97.9 [degF] [facility] Work Phone: 8(813)747-306248 [place] [address] 01-15-2023 15:08-0400 Diastolic blood pressure 102 mm[Hg] [facility] Work Phone: 8(618)287-768348 [place] [address] 01-15-2023 15:08-0400 Heart rate 73 /min [facility] Work Phone: 5(667)450-503348 [place] [address] 01-15-2023 15:08-0400 Respiratory rate 16 /min [facility] Work Phone: 8(528)[phone] [place] [address] 01-15-2023 15:08-0400 SaO2% (BldA) [Mass fraction] 97 % [facility] Work Phone: 9(009)876-732148 [place] [address] 01-15-2023 15:08-0400 Systolic blood pressure 168 mm[Hg] [facility] Work Phone: 4(029)656-994748 [place] [address] 01-15-2023 12:58-0400 Body height 167.64 cm [facility] Work Phone: 5(524)499-233548 [place] [address] 01-15-2023 12:58-0400 Body weight 104 kg [facility] Work Phone: 3(247)377-039848 [place] [address] 01-14-2023 16:21-0400 Body mass index (BMI) [Ratio] 37 kg/m2 [facility] Work Phone: 9(988)391-944848 [place] [address] 01-13-2023 10:20-0400 Respiratory rate 16 /min [facility] Work Phone: 0(266)039-776148 [place] [address] 01-13-2023 06:21-0400 Body mass index (BMI) [Ratio] 37.6 kg/m2 [facility] Work Phone: 4(461)239-507948 [place] [address] 01-13-2023 06:21-0400 Body temperature 97 [degF] [facility] Work Phone: 0(972)457-394648 [place] [address] 01-13-2023 06:21-0400 Body weight 105.9 kg [facility] Work Phone: 2(883)587-864248 [place] [address] 01-13-2023 06:21-0400 Diastolic blood pressure 106 mm[Hg] [facility] Work Phone: 4(036)200-001448 [place] [address] 01-13-2023 06:21-0400 Heart rate 99 /min [facility] Work Phone: [facility] 01-13-2023 06:21-0400 SaO2% (BldA) [Mass fraction] 99 % [facility] Work Phone: [facility] 01-13-2023 06:21-0400 Systolic blood pressure 169 mm[Hg] [facility] Work Phone: [facility] 01-12-2023 13:20-0400 Diastolic blood pressure 101 mm[Hg] [facility] 01-12-2023 13:20-0400 Heart rate 70 /min [facility] 01-12-2023 13:20-0400 Respiratory rate 14 /min [facility] 01-12-2023 13:20-0400 SaO2% (BldA) [Mass fraction] 98 % [facility] 01-12-2023 13:20-0400 Systolic blood pressure 143 mm[Hg] [facility] 01-12-2023 10:45-0400 Body height 167.64 cm [facility] 01-12-2023 10:45-0400 Body mass index (BMI) [Ratio] 37.6 kg/m2 [facility] 01-12-2023 10:45-0400 Body temperature 95.2 [degF] [facility] 01-12-2023 10:45-0400 Body weight 105.8 kg [facility] 01-12-2023 02:13-0400 Diastolic blood pressure 87 mm[Hg] [facility] 01-12-2023 02:13-0400 Heart rate 84 /min [facility] 01-12-2023 02:13-0400 Respiratory rate 18 /min [facility] 01-12-2023 02:13-0400 SaO2% (BldA) [Mass fraction] 99 % [facility] 01-12-2023 02:13-0400 Systolic blood pressure 141 mm[Hg] [facility] 01-11-2023 22:58-0400 Body height 167.64 cm [facility] 01-11-2023 22:58-0400 Body mass index (BMI) [Ratio] 33 kg/m2 [facility] 01-11-2023 22:58-0400 Body temperature 96.8 [degF] [facility] 01-11-2023 22:58-0400 Body weight 92.98 kg [facility] 01-10-2023 17:27-0400 Body temperature 98.78 [degF] ESSIE [facility] DO [facility] 01-10-2023 17:27-0400 Diastolic Blood Pressure Non-Invasive 80 1 [facility]SSIE [facility] 01-10-2023 17:27-0400 Heart rate 78 /min ESSIE FROMMELT DO [facility] 01-10-2023 17:27-0400 Respiratory rate 16 /min [facility]IE [facility] 01-10-2023 17:27-0400 Systolic Blood Pressure Non-Invasive 148 1 ESSIE WASHINGTONMELT DO [facility] 01-10-2023 16:16-0400 Body temperature 98.78 [degF] ESSIE FROMMELT DO [facility] 01-10-2023 15:43-0400 Diastolic Blood Pressure Non-Invasive 89 1 [facility]SSIE [facility] 01-10-2023 15:43-0400 Heart rate 77 /min [facility] 01-10-2023 15:43-0400 Respiratory rate 16 /min [facility]IE [facility] 01-10-2023 15:43-0400 Systolic Blood Pressure Non-Invasive 144 1 [facility]SSIE [facility] 01-10-2023 15:09-0400 Heart rate 74 /min ESSIE LAWLERADMETA [facility] 01-10-2023 14:32-0400 Respiratory rate 12 /min ESSIE LAWLERADMETA [facility] 01-10-2023 13:47-0400 Body temperature 98.78 [degF] [facility] 01-10-2023 13:47-0400 Diastolic Blood Pressure Non-Invasive 92 1 [facility] 01-10-2023 13:47-0400 Systolic Blood Pressure Non-Invasive 158 1 [facility] 01-09-2023 15:21-0400 Diastolic blood pressure 70 mm[Hg] [facility] 01-09-2023 15:21-0400 Heart rate 84 /min [facility] 01-09-2023 15:21-0400 Respiratory rate 16 /min [facility] 01-09-2023 15:21-0400 SaO2% (BldA) [Mass fraction] 97 % [facility] 01-09-2023 15:21-0400 Systolic blood pressure 139 mm[Hg] [facility] 01-09-2023 11:53-0400 Body height 167.64 cm [facility] 01-09-2023 11:53-0400 Body mass index (BMI) [Ratio] 41.1 kg/m2 [facility] 01-09-2023 11:53-0400 Body temperature 98.2 [degF] [facility] 01-09-2023 11:53-0400 Body weight 115.4 kg [facility] 01-07-2023 14:18-0400 Respiratory rate 14 /min [facility] 01-07-2023 12:01-0400 Diastolic blood pressure 99 mm[Hg] [facility] 01-07-2023 12:01-0400 Systolic blood pressure 154 mm[Hg] [facility] 01-07-2023 08:38-0400 Body height 167.64 cm [facility] 01-07-2023 08:38-0400 Body mass index (BMI) [Ratio] 34.5 kg/m2 [facility] 01-07-2023 08:38-0400 Body temperature 98.7 [degF] [facility] 01-07-2023 08:38-0400 Body weight 97.06 kg [facility] 01-07-2023 08:38-0400 Heart rate 82 /min [facility] 01-07-2023 08:38-0400 SaO2% (BldA) [Mass fraction] 99 % [facility] 11-19-2022 09:26-0400 Body temperature 98.7 [degF] [facility] 11-19-2022 09:26-0400 Diastolic blood pressure 81 mm[Hg] [facility] 11-19-2022 09:26-0400 Heart rate 101 /min [facility] 11-19-2022 09:26-0400 Respiratory rate 14 /min [facility] 11-19-2022 09:26-0400 SaO2% (BldA) [Mass fraction] 99 % [facility] 11-19-2022 09:26-0400 Systolic blood pressure 131 mm[Hg] [facility] 11-19-2022 09:24-0400 Body mass index (BMI) [Ratio] 39.3 kg/m2 [facility] 11-19-2022 09:24-0400 Body weight 110.5 kg [facility] 11-17-2022 08:43-0400 Body temperature 97.5 [degF] Andres Galaviz APRN.AVIONIC TECHNICIAN Work Phone: [facility] 11-17-2022 08:43-0400 Body weight 110.22 kg Andres Galaviz APRN.AVIONIC TECHNICIAN Work Phone: [facility] 11-17-2022 08:43-0400 Diastolic blood pressure 72 mm[Hg] Andres Galaviz APRN.AVIONIC TECHNICIAN Work Phone: [facility] 11-17-2022 08:43-0400 Heart rate 108 /min [facility] DIAMOND SORTER.AVIONIC TECHNICIAN Work Phone: [facility] 11-17-2022 08:43-0400 Respiratory rate 16 /min [facility] DIAMOND SORTER.AVIONIC TECHNICIAN Work Phone: [facility] 11-17-2022 08:43-0400 SaO2% (BldA) [Mass fraction] 97 % [facility] DIAMOND SORTER.AVIONIC TECHNICIAN Work Phone: [facility] 11-17-2022 08:43-0400 Systolic blood pressure 120 mm[Hg] [facility] DIAMOND SORTER.AVIONIC TECHNICIAN Work Phone: [facility] 10-08-2022 08:44-0400 Body temperature 97 [degF] Shamika Athy PA-C Work Phone: [facility] 10-08-2022 08:44-0400 Body weight 109.14 kg Shamika Athy PA-C Work Phone: [facility] 10-08-2022 08:44-0400 Diastolic blood pressure 82 mm[Hg] Shamika Athy PA-C Work Phone: [facility] 10-08-2022 08:44-0400 Heart rate 94 /min Shamika Athy PA-C Work Phone: [facility] 10-08-2022 08:44-0400 Respiratory rate 16 /min Shamika Athy PA-C Work Phone: [facility] 10-08-2022 08:44-0400 SaO2% (BldA) [Mass fraction] 100 % Shamika Athy PA-C Work Phone: [facility] 10-08-2022 08:44-0400 Systolic blood pressure 112 mm[Hg] Shamika Athy PA-C Work Phone: [facility] 08-15-2022 13:46-0500 Body temperature 98.6 [degF] Dr. Sophy Gibbons Work Phone: 1(881)502-867303 [address] 08-15-2022 13:46-0500 Diastolic blood pressure 95 mm[Hg] Dr. Sophy Gibbons Work Phone: 7(016)133-927548 [place] [address] 08-15-2022 13:46-0500 Heart rate 87 /min Dr. Sophy Gibbons Work Phone: 1(209)396-041048 [place] [address] 08-15-2022 13:46-0500 Respiratory rate 16 /min Dr. Sophy Gibbons Work Phone: 1(338)958-034648 [place] [address] 08-15-2022 13:46-0500 SaO2% (BldA) [Mass fraction] 99 % Dr. Sophy Gibbons Work Phone: 7(049)824-595148 [place] [address] 08-15-2022 13:46-0500 Systolic blood pressure 130 mm[Hg] Dr. Sophy Gibbons Work Phone: 4(771)863-588748 [place] [address] 08-15-2022 05:43-0500 Body weight 107.[address] Sophy Gibbons Work Phone: 3(633)704-279348 [place] [address] 08-13-2022 10:58-0500 Body height 167.[address] Sophy Gibbons Work Phone: 4(646)743-269748 [place] [address] 08-12-2022 22:34-0500 Body mass index (BMI) [Ratio] 37.9 kg/m2 Dr. Sophy Gibbons Work Phone: 4(803)190-693648 [place] [address] 08-12-2022 22:03-0500 Body temperature 98 [degF] Dr. Sophy Gibbons Work Phone: 1(839)116-574648 [place] [address] 08-12-2022 22:03-0500 Diastolic blood pressure 74 mm[Hg] Dr. Sophy Gibbons Work Phone: 2(307)348-952048 [place] [address] 08-12-2022 22:03-0500 Heart rate 82 /min Dr. Sophy Gibbons Work Phone: 9(182)961-011748 [place] [address] 08-12-2022 22:03-0500 Respiratory rate 15 /min Dr. Sophy Gibbons Work Phone: 1(178)974-672348 [place] [address] 08-12-2022 22:03-0500 SaO2% (BldA) [Mass fraction] 99 % Dr. Sophy Gibbons Work Phone: [facility] 08-12-2022 22:03-0500 Systolic blood pressure 118 mm[Hg] Dr. Sophy Gibbons Work Phone: [facility] 08-12-2022 15:27-0500 Body height 167.[address] Sophy Gibbons Work Phone: [facility] 08-12-2022 15:27-0500 Body mass index (BMI) [Ratio] 37.9 kg/m2 Dr. Sophy Gibbons Work Phone: [facility] 08-12-2022 15:27-0500 Body weight 106.[address] Sophy Gibbons Work Phone: [facility] 06-29-2022 08:39-0500 Body temperature 97.6 [degF] No Primary Care Physician [facility] 06-29-2022 08:39-0500 Diastolic blood pressure 90 mm[Hg] No Primary Care Physician [facility] 06-29-2022 08:39-0500 Heart rate 81 /min No Primary Care Physician [facility] 06-29-2022 08:39-0500 Respiratory rate 16 /min No Primary Care Physician [facility] 06-29-2022 08:39-0500 SaO2% (BldA) [Mass fraction] 99 % No Primary Care Physician [facility] 06-29-2022 08:39-0500 Systolic blood pressure 130 mm[Hg] No Primary Care Physician [facility] 06-26-2022 06:09-0500 Body height 167.64 cm No Primary Care Physician [facility] Work Phone: 06-26-2022 06:09-0500 Body mass index (BMI) [Ratio] 38.1 kg/m2 No Primary Care Physician [facility] 06-26-2022 06:09-0500 Body weight 107.1 kg No Primary Care Physician [facility] 06-25-2022 03:57-0500 Body temperature 98.1 [degF] No Primary Care Physician [facility] Work Phone: 06-25-2022 03:57-0500 Diastolic blood pressure 99 mm[Hg] No Primary Care Physician [facility] Work Phone: 06-25-2022 03:57-0500 Heart rate 96 /min No Primary Care Physician [facility] Work Phone: 06-25-2022 03:57-0500 Respiratory rate 18 /min No Primary Care Physician [facility] Work Phone: 06-25-2022 03:57-0500 SaO2% (BldA) [Mass fraction] 97 % No Primary Care Physician [facility] Work Phone: 06-25-2022 03:57-0500 Systolic blood pressure 134 mm[Hg] No Primary Care Physician [facility] Work Phone: 06-24-2022 16:48-0500 Body height 167.64 cm No Primary Care Physician [facility] Work Phone: 06-24-2022 16:48-0500 Body mass index (BMI) [Ratio] 38 kg/m2 No Primary Care Physician [facility] Work Phone: 06-24-2022 16:48-0500 Body weight 107.04 kg No Primary Care Physician [facility] Work Phone: 06-24-2022 15:30-0500 Body temperature 98.9 [degF] No Primary Care Physician [facility] Work Phone: 06-24-2022 15:30-0500 Diastolic blood pressure 99 mm[Hg] No Primary Care Physician [facility] Work Phone: 06-24-2022 15:30-0500 Heart rate 97 /min No Primary Care Physician [facility] Work Phone: 06-24-2022 15:30-0500 Respiratory rate 15 /min No Primary Care Physician [facility] Work Phone: 06-24-2022 15:30-0500 SaO2% (BldA) [Mass fraction] 100 % No Primary Care Physician [facility] Work Phone: 06-24-2022 15:30-0500 Systolic blood pressure 137 mm[Hg] No Primary Care Physician [facility] Work Phone: 06-24-2022 11:12-0500 Body height 167.64 cm No Primary Care Physician [facility] Work Phone: 06-24-2022 11:12-0500 Body mass index (BMI) [Ratio] 35.5 kg/m2 No Primary Care Physician [facility] Work Phone: 06-24-2022 11:12-0500 Body weight 99.79 kg No Primary Care Physician [facility] Work Phone: 04-09-2022 16:15-0400 Body temperature 98.2 [degF] No Primary Care Physician [facility] Work Phone: 04-09-2022 16:15-0400 Diastolic blood pressure 87 mm[Hg] No Primary Care Physician [facility] Work Phone: 04-09-2022 16:15-0400 Heart rate 89 /min No Primary Care Physician [facility] Work Phone: 04-09-2022 16:15-0400 Respiratory rate 18 /min No Primary Care Physician [facility] Work Phone: 04-09-2022 16:15-0400 SaO2% (BldA) [Mass fraction] 99 % No Primary Care Physician [facility] Work Phone: 04-09-2022 16:15-0400 Systolic blood pressure 136 mm[Hg] No Primary Care Physician [facility] Work Phone: 04-08-2022 11:30-0400 Body height 167.64 cm No Primary Care Physician [facility] Work Phone: 04-08-2022 11:30-0400 Body weight 96.6 kg No Primary Care Physician [facility] Work Phone: 04-06-2022 17:48-0400 Body mass index (BMI) [Ratio] 34.3 kg/m2 No Primary Care Physician [facility] Work Phone: 04-06-2022 15:39-0400 Body temperature 100.1 [degF] No Primary Care Physician [facility] Work Phone: 04-06-2022 15:39-0400 Diastolic blood pressure 79 mm[Hg] No Primary Care Physician [facility] Work Phone: 04-06-2022 15:39-0400 Heart rate 114 /min No Primary Care Physician [facility] Work Phone: 04-06-2022 15:39-0400 Respiratory rate 20 /min No Primary Care Physician [facility] Work Phone: 04-06-2022 15:39-0400 SaO2% (BldA) [Mass fraction] 98 % No Primary Care Physician [facility] Work Phone: 04-06-2022 15:39-0400 Systolic blood pressure 136 mm[Hg] No Primary Care Physician [facility] Work Phone: 04-06-2022 12:45-0400 Body height 167.64 cm No Primary Care Physician [facility] Work Phone: 04-06-2022 12:45-0400 Body mass index (BMI) [Ratio] 34.7 kg/m2 No Primary Care Physician [facility] Work Phone: 04-06-2022 12:45-0400 Body weight 97.5 kg No Primary Care Physician [facility] Work Phone: 04-05-2022 16:06-0400 Diastolic blood pressure 95 mm[Hg] No Primary Care Physician [facility] Work Phone: 04-05-2022 16:06-0400 Heart rate 103 /min No Primary Care Physician [facility] Work Phone: 04-05-2022 16:06-0400 Respiratory rate 16 /min No Primary Care Physician [facility] Work Phone: 04-05-2022 16:06-0400 SaO2% (BldA) [Mass fraction] 98 % No Primary Care Physician [facility] Work Phone: 04-05-2022 16:06-0400 Systolic blood pressure 127 mm[Hg] No Primary Care Physician [facility] Work Phone: 04-05-2022 11:53-0400 Body temperature 98 [degF] No Primary Care Physician [facility] Work Phone: 04-05-2022 11:50-0400 Body height 167.64 cm No Primary Care Physician [facility] Work Phone: 04-05-2022 11:50-0400 Body mass index (BMI) [Ratio] 34.4 kg/m2 No Primary Care Physician [facility] Work Phone: 04-05-2022 11:50-0400 Body weight 96.8 kg No Primary Care Physician [facility] Work Phone: 03-23-2022 12:28-0400 Body temperature 97 [degF] Sid Bravo MD Work Phone: [facility] 03-23-2022 12:28-0400 Body weight 97.07 kg Sid Bravo MD Work Phone: [facility] 03-23-2022 12:28-0400 Diastolic blood pressure 98 mm[Hg] Sid Bravo MD Work Phone: [facility] 03-23-2022 12:28-0400 Heart rate 105 /min Sid Bravo MD Work Phone: [facility] 03-23-2022 12:28-0400 Respiratory rate 20 /min Sid Bravo MD Work Phone: [facility] 03-23-2022 12:28-0400 SaO2% (BldA) [Mass fraction] 93 % Sid Bravo MD Work Phone: [facility] 03-23-2022 12:28-0400 Systolic blood pressure 130 mm[Hg] Sid Bravo MD Work Phone: [facility] 02-02-2022 09:33-0400 Body temperature 97.2 [degF] Alyssa Yeni DIAMOND SORTER.AVIONIC TECHNICIAN Work Phone: [facility] 02-02-2022 09:33-0400 Body weight 92.53 kg Alyssa Yeni DIAMOND SORTER.AVIONIC TECHNICIAN Work Phone: [facility] 02-02-2022 09:33-0400 Diastolic blood pressure 72 mm[Hg] Alyssa Yeni DIAMOND SORTER.AVIONIC TECHNICIAN Work Phone: [facility] 02-02-2022 09:33-0400 Heart rate 74 /min Alyssa Yeni DIAMOND SORTER.AVIONIC TECHNICIAN Work Phone: [facility] 02-02-2022 09:33-0400 Respiratory rate 16 /min Alyssa Yeni DIAMOND SORTER.AVIONIC TECHNICIAN Work Phone: [facility] 02-02-2022 09:33-0400 SaO2% (BldA) [Mass fraction] 99 % Alyssa Yeni DIAMOND SORTER.AVIONIC TECHNICIAN Work Phone: [facility] 02-02-2022 09:33-0400 Systolic blood pressure 120 mm[Hg] Alyssa Yeni DIAMOND SORTER.AVIONIC TECHNICIAN Work Phone: [facility] 02-01-2022 17:18-0400 Diastolic blood pressure 100 mm[Hg] No Primary Care Physician [facility] Work Phone: 02-01-2022 17:18-0400 Heart rate 66 /min No Primary Care Physician [facility] Work Phone: 02-01-2022 17:18-0400 Respiratory rate 18 /min No Primary Care Physician [facility] Work Phone: 02-01-2022 17:18-0400 SaO2% (BldA) [Mass fraction] 97 % No Primary Care Physician [facility] Work Phone: 02-01-2022 17:18-0400 Systolic blood pressure 145 mm[Hg] No Primary Care Physician [facility] Work Phone: 02-01-2022 12:42-0400 Body height 167.64 cm No Primary Care Physician [facility] Work Phone: 02-01-2022 12:42-0400 Body mass index (BMI) [Ratio] 32.3 kg/m2 No Primary Care Physician [facility] Work Phone: 02-01-2022 12:42-0400 Body temperature 96.3 [degF] No Primary Care Physician [facility] Work Phone: 02-01-2022 12:42-0400 Body weight 90.71 kg No Primary Care Physician [facility] Work Phone: 01-26-2022 12:31-0400 Body height 167.64 cm [facility] Work Phone: 01-26-2022 12:31-0400 Body mass index (BMI) [Ratio] 32.6 kg/m2 [facility] Work Phone: 01-26-2022 12:31-0400 Body temperature 98.4 [degF] [facility] Work Phone: 01-26-2022 12:31-0400 Body weight 91.71 kg [facility] Work Phone: 01-26-2022 12:31-0400 Diastolic blood pressure 108 mm[Hg] [facility] Work Phone: 01-26-2022 12:31-0400 Heart rate 94 /min [facility] Work Phone: 01-26-2022 12:31-0400 Respiratory rate 22 /min [facility] Work Phone: 01-26-2022 12:31-0400 SaO2% (BldA) [Mass fraction] 99 % [facility] Work Phone: 01-26-2022 12:31-0400 Systolic blood pressure 154 mm[Hg] [facility] Work Phone: 01-23-2022 18:18-0400 Diastolic blood pressure 74 mm[Hg] [facility] Work Phone: 01-23-2022 18:18-0400 Respiratory rate 18 /min [facility] Work Phone: 01-23-2022 18:18-0400 Systolic blood pressure 122 mm[Hg] [facility] Work Phone: 01-23-2022 16:02-0400 Body height 167.64 cm [facility] Work Phone: 01-23-2022 16:02-0400 Body mass index (BMI) [Ratio] 33.9 kg/m2 [facility] Work Phone: 01-23-2022 16:02-0400 Body temperature 97.6 [degF] [facility] Work Phone: 01-23-2022 16:02-0400 Body weight 95.25 kg [facility] Work Phone: 01-23-2022 16:02-0400 Heart rate 99 /min [facility] Work Phone: 01-23-2022 16:02-0400 SaO2% (BldA) [Mass fraction] 100 % [facility] Work Phone: 01-22-2022 23:45-0400 Heart rate 91 /min [facility] Work Phone: 01-22-2022 23:45-0400 Respiratory rate 16 /min [facility] Work Phone: 01-22-2022 23:45-0400 SaO2% (BldA) [Mass fraction] 98 % [facility] Work Phone: 01-22-2022 21:26-0400 Body height 167.64 cm [facility] Work Phone: 01-22-2022 21:26-0400 Body mass index (BMI) [Ratio] 33.9 kg/m2 [facility] Work Phone: 01-22-2022 21:26-0400 Body temperature 97.8 [degF] [facility] Work Phone: 01-22-2022 21:26-0400 Body weight 95.25 kg [facility] Work Phone: 01-22-2022 21:26-0400 Diastolic blood pressure 97 mm[Hg] [facility] Work Phone: 01-22-2022 21:26-0400 Systolic blood pressure 140 mm[Hg] [facility] Work Phone: 01-16-2022 14:12-0400 Body height 167.64 cm [facility] Work Phone: 01-16-2022 14:12-0400 Body mass index (BMI) [Ratio] 33.9 kg/m2 [facility] Work Phone: 01-16-2022 14:12-0400 Body temperature 96.7 [degF] [facility] Work Phone: 01-16-2022 14:12-0400 Body weight 95.3 kg [facility] Work Phone: 01-16-2022 14:12-0400 Diastolic blood pressure 93 mm[Hg] [facility] Work Phone: 01-16-2022 14:12-0400 Heart rate 130 /min [facility] Work Phone: 01-16-2022 14:12-0400 Respiratory rate 18 /min [facility] Work Phone: 01-16-2022 14:12-0400 SaO2% (BldA) [Mass fraction] 98 % [facility] Work Phone: 01-16-2022 14:12-0400 Systolic blood pressure 126 mm[Hg] [facility] Work Phone: 11-16-2021 10:09-0400 Body temperature 98.3 [degF] [facility] Work Phone: 11-16-2021 10:09-0400 Diastolic blood pressure 82 mm[Hg] [facility] Work Phone: 11-16-2021 10:09-0400 Heart rate 98 /min [facility] Work Phone: 11-16-2021 10:09-0400 Systolic blood pressure 138 mm[Hg] [facility] Work Phone: 11-16-2021 08:39-0400 Body height 167.64 cm [facility] Work Phone: 11-16-2021 08:39-0400 Body mass index (BMI) [Ratio] 34.9 kg/m2 [facility] Work Phone: 11-16-2021 08:39-0400 Body weight 98.33 kg [facility] Work Phone: 11-16-2021 08:39-0400 Respiratory rate 16 /min [facility] Work Phone: 11-16-2021 08:39-0400 SaO2% (BldA) [Mass fraction] 96 % [facility] Work Phone: 10-29-2021 12:09-0400 Diastolic blood pressure 69 mm[Hg] [facility] Work Phone: 10-29-2021 12:09-0400 Heart rate 71 /min [facility] Work Phone: 10-29-2021 12:09-0400 Respiratory rate 15 /min [facility] Work Phone: 10-29-2021 12:09-0400 SaO2% (BldA) [Mass fraction] 98 % [facility] Work Phone: 10-29-2021 12:09-0400 Systolic blood pressure 124 mm[Hg] [facility] Work Phone: 10-29-2021 08:59-0400 Body height 167.64 cm [facility] Work Phone: 10-29-2021 08:59-0400 Body mass index (BMI) [Ratio] 34.6 kg/m2 [facility] Work Phone: 10-29-2021 08:59-0400 Body temperature 96.9 [degF] [facility] Work Phone: 10-29-2021 08:59-0400 Body weight 97.4 kg [facility] Work Phone: 10-24-2021 08:30-0400 Body temperature 97.3 [degF] [facility] Work Phone: 10-24-2021 08:30-0400 Diastolic blood pressure 92 mm[Hg] [facility] Work Phone: 10-24-2021 08:30-0400 Heart rate 98 /min [facility] Work Phone: 10-24-2021 08:30-0400 Respiratory rate 16 /min [facility] Work Phone: 10-24-2021 08:30-0400 SaO2% (BldA) [Mass fraction] 100 % [facility] Work Phone: 10-24-2021 08:30-0400 Systolic blood pressure 148 mm[Hg] [facility] Work Phone: 10-24-2021 08:18-0400 Body height 167.64 cm [facility] Work Phone: 10-24-2021 08:18-0400 Body mass index (BMI) [Ratio] 33.7 kg/m2 [facility] Work Phone: 10-24-2021 08:18-0400 Body weight 95 kg [facility] Work Phone: 08-10-2021 23:58-0500 Heart rate 107 /min [facility] Work Phone: 08-10-2021 23:58-0500 Respiratory rate 18 /min [facility] Work Phone: 08-10-2021 23:58-0500 SaO2% (BldA) [Mass fraction] 100 % [facility] Work Phone: 08-10-2021 22:57-0500 Diastolic blood pressure 88 mm[Hg] [facility] Work Phone: 08-10-2021 22:57-0500 Systolic blood pressure 125 mm[Hg] [facility] Work Phone: 08-10-2021 21:32-0500 Body mass index (BMI) [Ratio] 35.5 kg/m2 [facility] Work Phone: 08-10-2021 21:32-0500 Body temperature 97.6 [degF] [facility] Work Phone: 08-10-2021 21:32-0500 Body weight 99.79 kg [facility] Work Phone: Encounters Encounter Date Encounter Type Care Provider Facility Start: 02-15-2025 ambulatory [address] Radford in [facility] Facility:[facility] Start: 01-11-2025 ambulatory Amy Radford in [facility] Facility:[facility] Start: 12-25-2024 End: 12-25-2024 ambulatory Amy Solorzano [employer]PER[employer]-C Work Phone: [facility] Work Phone: Start: 12-25-2024 End: 12-25-2024 Patient encounter procedure Nayana GRADY -Ultrasound [facility] Work Phone: Start: 12-25-2024 End: 12-25-[address] [facility] Facility:[facility] Start: 12-13-2024 End: 12-13-2024 ambulatory Amy Solorzano [employer] SUPERVISOR-C Work Phone: [facility] Work Phone: Start: 12-13-2024 End: 12-13-2024 Patient encounter procedure Nayana GRADY -Laboratory Work Phone: Start: 12-13-2024 End: 12-13-2024 Patient encounter procedure Nayana GRADY [facility] Work Phone: Start: 12-13-2024 End: 12-13-2024 ambulatory Amy Solorzano [employer] SUPERVISOR-C Work Phone: [facility] Work Phone: Start: 12-13-2024 End: 12-13-2024 ambulatory Nayana Peter Facility:[facility] Start: 11-28-2024 Non-patient / Non-visit Dr. Gale Lr DO -[facility] Work Phone: Start: 11-28-2024 Non-patient / Non-visit Clare Loo PA-C [facility] Start: 11-27-2024 Non-patient / Non-visit Clare Loo PA-C [facility] Start: 11-26-2024 Non-patient / Non-visit Dr. Clair Rao MD -[facility] Work Phone: Start: 11-26-2024 Non-patient / Non-visit Dr. Fahad Welch MD -[facility] Start: 11-25-2024 Non-patient / Non-visit Dr. Fahad Welch MD -[facility] Start: 11-25-2024 ambulatory Brenda Rao Facility :[facility] Start: 11-25-2024 End: 11-28-2024 Evaluation and management of inpatient Dr. Brenda Rao MD -Medical Surgical 3 Work Phone: Start: 10-26-2024 ambulatory Abdirizak B[place]en Facility: [facility] Start: 10-25-2024 End: 10-25-2024 ambulatory Amy Solorzano [employer] SUPERVISOR-C Work Phone: [facility] Work Phone: Start: 10-25-2024 End: 10-25-[address] Abdirizak Forrest DPM -Cardiovascular Services Work Phone: Start: 10-25-2024 End: 10-25-2024 ambulatory [facility] Start: 10-17-2024 End: 10-17-2024 ambulatory Amy Scio [employer]FITTERS SUPERVISOR-C Work Phone: [facility] Work Phone: Start: 10-17-2024 End: 10-17-[address] [facility] Amy Rashad [employer]FITTERS SUPERVISOR-C -Singh, Sophy Gibbons Start: 10-17-2024 End: 10-17-2024 ambulatory [facility] Facility:[facility] Start: 07-03-2024 End: 07-03-2024 Patient encounter procedure Irais GRADY Work Phone: [facility] Comment on above: Acute cough (Primary Dx) Start: 07-03-2024 End: 07-03-2024 ambulatory [facility] Facility:[facility] Start: 07-03-2024 End: 07-03-2024 Subsequent hospital visit by physician Santiago [facility] Work Phone: Radiology Comment on above: Acute cough [R05.1] Start: 06-26-2024 End: 06-26-2024 ambulatory [facility] Facility:[facility] Start: 06-26-2024 End: 06-26-2024 Office outpatient visit 25 minutes Frantz Arevalo PA-C Work Phone: [facility] Comment on above: Bronchopneumonia (Pr imary Dx); Mild intermittent asthma, uncomplicated Start: 04-25-2024 End: 04-25-2024 ambulatory [facility] Facility:[facility] Start: 11-08-2023 End: 11-08-[address] [facility] Work Phone: Start: 11-08-2023 End: 11-08-[address] [facility] Work Phone: Start: 07-23-2023 End: 07-23-2023 Admission to same day surgery center [facility] Start: 07-23-2023 End: 07-23-2023 ambulatory No Primary Care Physician [facility] Work Phone: Start: 07-23-2023 End: 07-23-2023 No Primary Care Physician [facility] Start: 07-12-2023 End: 07-12-2023 No Primary Care Physician [facility]Emergency Department Work Phone: Start: 07-02-2023 End: 07-02-2023 Emergency department patient visit No Primary Care Physician [facility] Work Phone: Start: 07-02-2023 End: 07-02-2023 No Primary Care Physician [facility] Work Phone: Start: 07-01-2023 End: 07-01-2023 Office outpatient visit 15 minutes Andres Galaviz APRN.[facility] Work Phone: [facility] Comment on above: Pain of right eye (P rimary Dx) Start: 06-30-2023 End: 06-30-2023 No Primary Care Physician [facility] Work Phone: Start: 06-28-2023 End: 06-28-2023 Emergency department patient visit No Primary Care Physician [facility] Work Phone: Start: 06-28-2023 End: 06-28-2023 No Primary Care Physician [facility] Work Phone: Start: 06-27-2023 End: 06-27-2023 Emergency department patient visit No Primary Care Physician [facility] Work Phone: Start: 06-27-2023 End: 06-27-2023 No Primary Care Physician [facility] Work Phone: Start: 06-26-2023 End: 06-26-2023 Emergency department patient visit No Primary Care Physician [facility] Work Phone: Start: 06-26-2023 End: 06-26-2023 No Primary Care Physician [facility] Work Phone: Start: 06-25-2023 End: 06-25-2023 Emergency department patient visit No Primary Care Physician [facility]Emer[facility] Work Phone: Start: 06-25-2023 End: 06-25-2023 No Primary Care Physician [facility] Work Phone: Start: 05-18-2023 End: 05-18-2023 ambulatory No Primary Care Physician [facility] Work Phone: Start: 05-18-2023 End: 05-18-2023 Patient encounter procedure No Primary Care Physician [facility]-Laboratory, Specimen Work Phone: Start: 05-18-2023 End: 05-18-2023 No Primary Care Physician [facility]Laboratory, Specimen Work Phone: Start: 05-09-2023 Non-patient / Non-visit No Kristina cormier Care Physician [facility] Work Phone: Start: 05-09-2023 [facility] Work Phone: [facility] Work Phone: Start: 05-08-2023 Non-patient / Non-visit No Kristina cormier Care Physician [facility] Work Phone: Start: 05-08-2023 [facility] Work Phone: [facility] Work Phone: Start: 05-07-2023 Non-patient / Non-visit No Kristina cormier Care Physician [facility] Work Phone: Start: 05-07-2023 [facility] Work Phone: [facility] Work Phone: Start: 05-06-2023 Non-patient / Non-visit No Kristina cormier Care Physician [facility] Work Phone: Start: 05-06-2023 [facility] Work Phone: [facility] Work Phone: Start: 05-05-2023 Non-patient / Non-visit No Kristina cormier Care Physician [facility] Work Phone: Start: 05-05-2023 [facility] Work Phone: [facility] Work Phone: Start: 05-04-2023 End: 05-09-2023 Evaluation and management of inpatient [facility] Work Phone: [facility] Work Phone: Start: 05-04-2023 End: 05-09-2023 [facility] Work Phone: [facility]-Medical Surgical 3 Work Phone: Start: 05-04-2023 ambulatory [facility] Work Phone: [facility] Work Phone: Start: 05-04-2023 [facility] Work Phone: [facility]-Medical Technologist Generalist Inpatients Work Phone: Start: 05-04-2023 Non-patient / Non-visit No Kristina Woo Physician [facility] Work Phone: Start: 05-04-2023 [facility] Work Phone: [facility] Work Phone: Start: 04-15-2023 End: 04-15-2023 Emergency department patient visit No Primary Care Physician [facility] Work Phone: Start: 04-15-2023 End: 04-15-2023 [facility] Work Phone: [facility]Emergency Department Work Phone: Start: 04-15-2023 End: 04-15-2023 Patient encounter procedure Abdirizak Peña APRN.AVIONIC TECHNICIAN Work Phone: [facility] Comment on above: SOB (shortness of br eath) (Primary Dx); Abdominal pain, unspecified abdominal location Start: 04-14-2023 End: 04-14-2023 Emergency department patient visit No Primary Care Physician [facility]Emer[facility] Work Phone: Start: 04-14-2023 End: 04-14-2023 [facility] Work Phone: [facility]Emergency [facility] Work Phone: Start: 04-13-2023 End: 04-13-2023 Emergency department [facility] Start: 04-13-2023 End: 04-13-2023 [facility] Work Phone: [facility]Emergency Department Work Phone: Start: 03-26-2023 ambulatory No Pcp DIAMOND SORTER [id number] Start: 03-12-2023 Orders Only Pilar farrar APRN.AVIONIC TECHNICIAN Work Phone: [facility] Comment on above: Chronic abdominal pa in (Primary Dx) Start: 03-10-2023 Telephone encounter Amy redding NP Work Phone: NOC Comment on above: Follow Up (Post Disc harge F/U - 1st attempt made. No answer./) Start: 03-09-2023 Telephone encounter Pilar barrios APRN.AVIONIC TECHNICIAN Work Phone: [facility] Comment on above: Consult Start: 03-06-2023 End: 03-06-2023 Emergency department patient visit [facility] Work Phone: [facility] Work Phone: Start: 03-06-2023 End: 03-06-2023 [facility] Work Phone: [facility]-Emergency Department Work Phone: Start: 03-02-2023 ambulatory No Pcp DIAMOND SORTER [employer] Start: 03-02-2023 Telephone encounter Almita lara PA-C Work Phone: [facility] Provider Adult Comment on above: Appointment Start: 03-01-2023 End: 03-04-2023 Evaluation and management of inpatient [facility] Start: 03-01-2023 End: 03-01-2023 Patient encounter procedure Dewayne Doran MD Work Phone: Gastroenterology Comment on above: Vomiting, unspecifie d vomiting type, unspecified whether nausea present (Primary Dx); Chronic nausea Start: 02-25-2023 End: 02-26-2023 Emergency department patient visit [facility] Work Phone: [facility] Work Phone: Start: 02-25-2023 End: 02-26-2023 [facility] Start: 02-24-2023 End: 02-24-2023 Emergency department patient visit No [facility] Start: 02-24-2023 End: 02-24-2023 [facility] Work Phone: [facility]Emergency Department Work Phone: Start: 02-23-2023 End: 02-23-2023 Patient encounter procedure Pilar Magdaleno APRN.AVIONIC TECHNICIAN Work Phone: [facility] [place] Comment on above: Chronic nausea (Prim crystal Dx); Chronic abdominal pain Start: 02-17-2023 End: 02-18-2023 Emergency department patient visit DEWAYNE BRAGA [facility] Start: 02-11-2023 End: 02-11-2023 ambulatory GERALDINE SILVA DO Facility:B Start: 02-10-2023 End: 02-11-2023 Observation HELENA SILVERMAN APRN-AVIONIC TECHNICIAN [facility] Start: 02-08-2023 End: 02-08-2023 Emergency department patient visit [facility] Work Phone: [facility]Emergency Department Work Phone: Start: 02-08-2023 End: 02-08-2023 [facility] Work Phone: [facility]Emergency [facility] Work Phone: Start: 02-04-2023 End: 02-04-2023 Patient encounter procedure Irais GRADY Work Phone: [facility] Comment on above: Generalized abdomina l pain (Primary Dx) Start: 02-04-2023 End: 02-04-2023 Emergency department patient visit [facility] Work Phone: [facility]Emergency Department Work Phone: Start: 02-04-2023 End: 02-04-2023 [facility] Work Phone: [facility]Emer[facility] Work Phone: Start: 01-25-2023 End: 01-25-2023 Emergency department [facility] Start: 01-25-2023 End: 01-25-2023 [facility] Work Phone: [facility]Emergency Department Work Phone: Start: 01-24-2023 End: 01-24-2023 Emergency department patient visit ABDIRIZAK RAMIREZ [facility] Start: 01-24-2023 End: 01-24-2023 Emergency department patient visit Abdirizak Ramirez MD Work Phone: [facility] Comment on above: Nausea and vomiting, unspecified vomiting type (Primary Dx); Syncope and collapse Start: 01-17-2023 End: 01-17-2023 Emergency department patient visit GERALDINE ROLAND [facility] Start: 01-15-2023 Non-patient / Non-visit [facility] Work Phone: [facility] Work Phone: Start: 01-15-2023 [facility] Work Phone: [facility] Work Phone: Start: 01-14-2023 End: 01-15-2023 Evaluation and management of inpatient [facility] Work Phone: [facility] Surgical 3 Work Phone: Start: 01-14-2023 End: 01-15-2023 observation encounter [facility] Work Phone: [facility] Work Phone: Start: 01-14-2023 End: 01-15-2023 [facility] Work Phone: [facility] Surgical 3 Work Phone: Start: 01-13-2023 End: 01-13-2023 Emergency department patient visit [facility] Work Phone: [facility]-Emergency Department Work Phone: Start: 01-13-2023 End: 01-13-2023 [facility] Work Phone: [facility]Emergency [facility] Work Phone: Start: 01-12-2023 End: 01-12-2023 Emergency department patient visit [facility] Work Phone: Start: 01-12-2023 End: 01-12-2023 [facility] Work Phone: [facility]Emergency [facility] Work Phone: Start: 01-11-2023 End: 01-12-2023 Emergency department patient visit [facility] Work Phone: Start: 01-11-2023 End: 01-12-2023 [facility] Work Phone: [facility]Emergency [facility] Work Phone: Start: 01-10-2023 End: 01-10-2023 Emergency department patient visit ESSIE DOWNS DO Facility:B Start: 01-10-2023 End: 01-10-2023 Emergency department patient visit ESSIE DOWNS DO [facility] Start: 01-09-2023 End: 01-09-2023 Emergency department patient visit [facility] Work Phone: Start: 01-09-2023 End: 01-09-2023 [facility] Work Phone: [facility] Work Phone: Start: 01-07-2023 End: 01-07-2023 Emergency department patient visit [facility] Work Phone: Start: 01-07-2023 End: 01-07-2023 [facility] Work Phone: [facility]Emergency [facility] Work Phone: Start: 11-25-2022 End: 11-25-2022 ambulatory [facility] Work Phone: [facility] Work Phone: Start: 11-25-2022 End: 11-25-[address] [facility]Labor[facility] Work Phone: Start: 11-25-2022 End: 11-25-2022 [facility] Start: 11-19-2022 End: 11-19-2022 Emergency department patient visit [facility] Work Phone: Start: 11-19-2022 End: 11-19-2022 [facility] Work Phone: [facility]Emer[facility] Work Phone: Start: 11-17-2022 End: 11-17-2022 Office outpatient visit 25 minutes Andres Galaviz APRN.AVIONIC TECHNICIAN Work Phone: [facility] Comment on above: Facial infection (Pr imary Dx) Start: 10-11-2022 Telephone encounter Irais GRADY Work Phone: [facility] Comment on above: Results Start: 10-08-2022 End: 10-08-2022 Patient encounter procedure Shamika Goins PA-C Work Phone: [facility] Comment on above: Toe infection (Prima ry Dx); Facial infection; History of MRSA infection Start: 08-14-2022 Non-patient / Non-visit Dr. Jessica Gibbons Work Phone: [facility] Start: 08-13-2022 Non-patient / Non-visit Dr. Jessica Gibbons Work Phone: [facility] Start: 08-12-2022 Non-patient / Non-visit Dr. Jessica Gibbons Work Phone: [facility] Start: 08-12-2022 End: 08-15-2022 Evaluation and management of inpatient Dr. Sophy Gibbons Work Phone: [facility]-Progressive Care Unit Start: 06-29-2022 Non-patient / Non-visit No Kristina cormier Care Physician [facility] Start: 06-28-2022 Non-patient / Non-visit No Kristina casa Care Physician [facility] Start: 06-27-2022 Non-patient / Non-visit No Kristina cormier Care Physician [facility] Start: 06-26-2022 Non-patient / Non-visit No Kristina casa Care Physician [facility] Start: 06-25-2022 Non-patient / Non-visit No Kristina casa Care Physician [facility] Start: 06-24-2022 End: 06-29-2022 Evaluation and management of inpatient No Primary Care Physician [facility]-Medical Surgical 3 Start: 06-23-2022 End: 06-23-2022 ambulatory No Primary Care Physician [facility] Work Phone: Start: 06-23-2022 End: 06-23-2022 Patient encounter procedure No Primary Care Physician [facility]Laboratory, Specimen Start: 05-07-2022 End: 05-07-2022 ambulatory No Primary Care Physician [facility] Work Phone: Start: 05-07-2022 End: 05-07-2022 Patient encounter procedure No Primary Care Physician [facility]Labor[facility] Start: 04-20-2022 End: 04-20-2022 ambulatory No Primary Care Physician [facility] Work Phone: Start: 04-20-2022 End: 04-20-2022 Departed Referred No Primary Care Physician [facility] 100/200 Start: 04-20-2022 Registered Referred No Primary Care Physician [facility] 100/200 Start: 04-13-2022 End: 04-13-2022 ambulatory No Primary Care Physician [facility] Work Phone: Start: 04-13-2022 End: 04-13-2022 Departed Referred No Primary Care Physician [facility] 100/200 Start: 04-13-2022 Registered Referred No Primary Care Physician [facility] 100/200 Start: 04-10-2022 End: 04-10-2022 ambulatory No Primary Care Physician [facility] Work Phone: Start: 04-10-2022 End: 04-10-2022 Departed Referred No Primary Care Physician [facility] 100/200 Start: 04-09-2022 Non-patient / Non-visit No Kristina cormier Care Physician [facility] Start: 04-08-2022 Non-patient / Non-visit No Kristina casa Care Physician [facility] Start: 04-07-2022 Non-patient / Non-visit No Kristina casa Care Physician [facility] Start: 04-06-2022 Non-patient / Non-visit No Kristina casa Care Physician [facility] Start: 04-06-2022 End: 04-09-2022 Evaluation and management of inpatient No Primary Care Physician [facility] Surgical 3 Start: 04-05-2022 End: 04-05-2022 Emergency department patient visit No Primary Care Physician [facility]Emergency [facility] Start: 03-23-2022 End: 03-23-2022 Subsequent hospital visit by physician Santiago [facility] [place] Work Phone: Radiology Comment on above: Acute cough [R05.1] Start: 03-23-2022 End: 03-23-2022 Patient encounter procedure Sid Bravo MD Work Phone: [facility] Comment on above: Acute cough (Primary Dx); Mild intermittent asthmatic bronchitis without complication Start: 02-16-2022 End: 02-16-2022 Patient encounter procedure No Primary Care Physician [facility] Start: 02-02-2022 End: 02-02-2022 Patient encounter procedure Alyssa Yeni JANG Work Phone: [facility] Comment on above: Abnormal lung scan ( Primary Dx); Nausea and vomiting, unspecified vomiting type Start: 02-01-2022 End: 02-01-2022 Emergency department patient visit No Primary Care Physician [facility] Start: 01-30-2022 End: 01-30-2022 Patient encounter procedure No Primary Care Physician [facility] Start: 01-30-2022 End: 01-30-2022 Patient encounter procedure No Primary Care Physician [facility] Start: 01-26-2022 End: 01-26-2022 Emergency department patient visit [facility] Start: 01-23-2022 End: 01-23-2022 Emergency department patient visit [facility] Start: 01-22-2022 End: 01-22-2022 Emergency department patient visit [facility] Start: 01-16-2022 End: 01-16-2022 Emergency department patient visit [facility] Start: 11-16-2021 End: 11-16-2021 Emergency department patient visit [facility] Start: 10-29-2021 End: 10-29-2021 Emergency department patient visit [facility] Start: 10-24-2021 End: 10-24-2021 Emergency department patient visit [facility] Start: 08-10-2021 End: 08-11-2021 Emergency department patient visit [facility] Start: 05-15-2021 End: 05-15-2021 Subsequent hospital visit by physician [facility] Work Phone: Radiology Comment on above: Cough [R05.9] Procedures Date Procedure Procedure Detail Performing Clinician Start: 12-25-2024 Ultrasonography of abdomen Amy Solorzano [employer] Work Phone: Start: 11-28-2024 Estimated creatinine clearance Amy Solorzano [employer] Work Phone: Start: 11-27-2024 Computed tomography of abdomen and pelvis with contrast Amy Solorzano [employer] Work Phone: Start: 11-26-2024 Plain X-ray abdomen Glendy Solorzano [employer]PER[employer] Work Phone: Start: 11-25-2024 Blood culture Amy kim [employer] Work Phone: Start: 11-25-2024 Computed tomography of abdomen and pelvis with intravenous contrast Amy Solorzano [employer] Work Phone: Start: 11-25-2024 Urnls dip stick/tabl et reagent auto microscopy Amy Solorzano [employer]PER[employer] Work Phone: Start: 11-25-2024 Plain X-ray abdomen Glendy Solorzano [employer] Work Phone: Start: 11-25-2024 Estimated creatinine clearance Amy Solorzano [employer]PER[employer] Work Phone: Start: 10-17-2024 Vitamin D, 25-hydrox y measurement Amy Solorzano [employer] Work Phone: Comment on above: Vitamin D StatusDefi ciency: <20 ng/mL (50nmol/L)Insufficiency: 20-30 ng/mL (50-75 nmol/L)Sufficiency: 30-100 ng/mL (75-250 nmol/L)Toxicity: >100 ng/mL (>250 nmol/L) Start: 07-03-2024 Radiologic exam ches t 2 views Irais GRADY Work Phone: Start: 11-08-2023 MRI of joint of lowe r extremity Start: 07-23-2023 Fungus stain method Start: 07-23-2023 Mycology culture Start: 07-23-2023 Incision and drainag e of abscess No Primary Care Physician Start: 07-23-2023 Fluoroscopic guidance N o Primary Care Physician Start: 07-23-2023 X-ray of both feet Start: 06-26-2023 Computed tomography of abdomen and pelvis with intravenous contrast No Primary Care Physician Start: 05-18-2023 Anaerobic microbial culture No Primary Care Physician Start: 05-18-2023 Investigation of tra nsfusion reaction No Primary Care Physician Start: 05-18-2023 Microbial culture, routine No Primary Care Physician Start: 05-18-2023 Mycology culture No [facility] Physician Start: 05-08-2023 Plain X-ray abdomen [facility] Work Phone: Start: 05-07-2023 Incision and drainag e of abscess [facility] Work Phone: Start: 05-04-2023 MRI of lower extremity [facility] Work Phone: Start: 05-04-2023 Incision and drainag e of abscess [facility] Work Phone: Start: 05-04-2023 Anaerobic microbial culture No Primary Care Physician Start: 05-04-2023 Bacteria identified in Blood by Culture No Primary Care Physician Start: 05-04-2023 Fungus stain method No Primary Care Physician Start: 05-04-2023 Investigation of tra nsfusion reaction [facility] Work Phone: Start: 05-04-2023 Microbial culture, routine [facility] Work Phone: Start: 05-04-2023 Mycology culture No [facility] Physician Start: 05-04-2023 [facility] Work Phone: Start: 05-04-2023 X-ray of both feet [facility] Work Phone: Start: 03-06-2023 Computed tomography of abdomen and pelvis with contrast [facility] Work Phone: Start: 03-06-2023 X-ray of both feet [facility] Work Phone: Start: 02-26-2023 Computed tomography of abdomen and pelvis with intravenous contrast [facility] Work Phone: Start: 02-24-2023 Plain X-ray of toe [facility] Work Phone: Start: 02-17-2023 Urinalysis DEWAYNE Mendoza Comment on above: Result Comment: URIN ALYSIS Performed By: #### [id number] #### [facility] [place],[address] [place] [id number] Start: 02-08-2023 Computed tomography of abdomen and pelvis with contrast [facility] Work Phone: Start: 01-24-2023 Ecg routine ecg w/le ast 12 lds trcg only w/o i&r Abdirizak Ramirez MD Work Phone: Start: 01-24-2023 Comprehensive metabo lic panel Abdirizak Ramirez MD Work Phone: Start: 01-24-2023 Urinalysis complete panel - Urine Abdirizak Ramirez MD Work Phone: Start: 01-24-2023 Urine test visual color cmprsn meths Abdirizak Ramirez MD Work Phone: Start: 01-24-2023 Urnls dip stick/tabl et reagent auto microscopy Abdirizak Ramirez MD Work Phone: Start: 01-17-2023 Urinalysis DEWAYNE Mendoza Comment on above: Result Comment: URIN ALYSIS Performed By: #### [id number] #### [facility] [place],[address] [place] [id number] Start: 01-14-2023 Urine culture [facility] Work Phone: Start: 01-14-2023 Computed tomography of abdomen and pelvis with intravenous contrast [facility] Work Phone: Start: 08-12-[address] Jessica Gibbons Work Phone: Start: 08-12-2022 Computed tomography of abdomen and pelvis with intravenous contrast Dr. Sophy Gibbons Work Phone: Start: 08-12-2022 Plain chest X-ray Dr. Sandi Gibbons Work Phone: Start: 06-26-2022 X-ray of both feet No P rimary Care Physician Start: 06-26-2022 Debridement No Primary Care Physician Start: 06-24-2022 MRI of lower extremity No Primary Care Physician Start: 06-24-2022 X-ray of both feet No P rimary Care Physician Start: 04-07-2022 MRI of lower extremity No Primary Care Physician Start: 04-06-2022 Radiography of ankle No Primary Care Physician Start: 04-06-2022 Plain X-ray of tibia and fibula No Primary Care Physician Start: 04-06-2022 Incision and drainag e of abscess No Primary Care Physician Start: 04-06-2022 X-ray of both feet No P rimary Care Physician Start: 04-05-2022 X-ray of both feet No P rimary Care Physician Start: 03-23-2022 Radiologic exam ches t 2 views Sid Bravo MD Work Phone: Start: 02-01-2022 Computed tomography of abdomen and pelvis with contrast No Primary Care Physician Start: 01-23-2022 Computed tomography of abdomen and pelvis with intravenous contrast Start: 01-22-2022 Diagnostic radiograp hy of abdomen Start: 11-16-2021 X-ray of both feet Start: 10-29-2021 Diagnostic radiograp hy of abdomen Start: 05-15-2021 Radiologic exam ches t 2 views Andres Galaviz APRN.[facility] Work Phone: Acid fast bacilli culture Dr Marine Gibbons Work Phone: Anaerobic microbial culture No Primary Care Physician Bacteria identified in Blood by Culture No Primary Care Physician Bacteria identified in Blood by Culture Dr. Sophy Gibbons Work Phone: Cytopathology proced ure, preparation of smear, genital source Dr. Sophy Gibbons Work Phone: Investigation of tra nsfusion reaction No Primary Care Physician Investigation of tra nsfusion reaction Dr. Sophy Gibbons Work Phone: Microbial culture, routine N o Primary Care Physician Microbial culture, routine D yaneth Gibbons Work Phone: Urine culture No Primary Car e Physician Urine culture Dr. Sophy leyva Work Phone: Urine culture Dr. Sophy leyva Work Phone: Viral antigen assay No Prima ry Care Physician Plan of Treatment Date Care Activity Detail Author Start: 01-28-2042 Zoster Vaccines (1 of 2) Zoster Vaccines (1 of 2) [facility] Start: 11-28-[address] [facility] Start: 11-28-2024 [facility] Start: 11-26-2024 End: 11-27-2024 [facility] Start: 11-26-2024 Inhalation therapy procedure [facility] Start: 11-25-2024 Following clinical pathway protocol [facility] Start: 11-25-2024 Assessment of risk of venous thromboembolism [facility] Start: 11-25-2024 Care regimes management [facility] Start: 11-25-2024 Insertion of catheter into peripheral vein [facility] Start: 11-25-2024 Notification of physician [facility] Start: 11-25-2024 Providing care according to standard [facility] Start: 11-25-2024 Provision of activity privileges [facility] Start: 11-25-2024 Referral to general surgeon [facility] Start: 11-25-2024 Referral to occupational therapist [facility] Start: 11-25-[address] [facility] Start: 11-25-2024 End: 11-25-2024 [facility] Start: 11-25-2024 Hospital admission, emergency, from emergency room, medical nature [facility] Start: 11-25-2024 Bacteria identified in Blood by Culture Blood Culture [facility] Start: 11-25-2024 Blood culture Blood Culture [facility] Start: 11-25-[address] [facility] Start: 11-25-[address] [facility] Start: 11-25-2024 [facility] Start: 03-12-2024 Covid-19 Vaccine ( season) Covid-19 Vaccine ( season) [facility] Start: 03-12-2024 Influenza vaccination Influenza Vaccine (#1) [facility] Start: 02-24-2024 ANNUAL PCP TEAM CHRONIC DISEASE VISIT ANNUAL PCP TEAM CHRONIC DISEASE VISIT [facility] Start: 01-12-2024 Hemoglobin A1c measurement HbA1C [facility] Start: 07-23-2023 Amputation foot transmetarsal AMPUTATION THRU METATARSAL [facility] Start: 07-23-2023 Anes open proc bones lower leg/ankle/foot nos ANESTH LOWER LEG BONE SURG [facility] Start: 07-23-2023 Injection aa&/strd sciatic nerve NJX AA&/STRD SCIATIC NRV IMG [facility] Start: 07-23-2023 Musc myocutaneous/fasciocutaneous flap lxtr MUSCLE-SKIN GRAFT LEG [facility] Start: 07-23-2023 Smr prim src gram/giemsa stain bct fungi/cell SMEAR GRAM STAIN [facility] Start: 07-23-2023 [facility] Start: 07-23-[address] [facility] Start: 07-23-2023 X-ray of both feet [facility] Start: 07-23-2023 XR Foot GE [address] [facility] Start: 07-12-2023 [facility] Start: 06-28-2023 [facility] Start: 06-27-2023 [facility] Start: 06-27-[address] [facility] Start: 06-26-2023 [facility] Start: 06-25-2023 [facility] Start: 05-21-2023 Hemoglobin A1c measurement HbA1C [facility] Start: 05-21-2023 Hemoglobin A1c/Hemoglobin.total in Blood HBA1C [facility] Start: 05-18-2023 Anaerobic microbial culture Anaerobic Culture [facility] Start: 05-18-2023 [facility] Start: 05-09-[address] [facility] Start: 05-08-2023 Inhalation therapy procedure [facility] Start: 05-07-2023 [facility] Start: 05-04-2023 [facility] Start: 05-04-2023 Ambulation without limitation [facility] Start: 05-04-2023 Assessment of risk of venous thromboembolism [facility] Start: 05-04-2023 Care regimes management [facility] Start: 05-04-2023 Consultation for treatment [facility] Start: 05-04-2023 Insertion of catheter into peripheral vein [facility] Start: 05-04-2023 Notification of physician [facility] Start: 05-04-2023 Patient referral to dietitian [facility] Start: 05-04-2023 Providing care according to standard [facility] Start: 05-04-2023 [facility] Start: 05-04-2023 Following clinical pathway protocol [facility] Start: 05-04-2023 Incision and drainage of abscess [facility] Start: 05-04-[address] [facility] Start: 05-04-2023 Hospital admission, emergency, from emergency room, medical nature [facility] Start: 05-04-2023 End: 05-04-[address] [facility] Start: 05-04-2023 End: 05-04-2023 [facility] Start: 05-04-2023 [facility] Start: 04-15-2023 [facility] Start: 03-12-2023 Covid-19 Vaccine ( season) Covid-19 Vaccine ( season) [facility] Start: 03-12-2023 Influenza vaccination [facility] Start: 01-25-[address] [facility] Start: 01-25-2023 Computed tomography of abdomen and pelvis with intravenous contrast Abdomen/Pelvis W IV Cont ONLY [facility] Start: 01-25-[address] [facility] Start: 01-25-[address] [facility] Start: 01-25-2023 [facility] Start: 01-19-2023 [facility] Start: 01-18-2023 [facility] Start: 01-17-2023 [facility] Start: 01-16-2023 [facility] Start: 01-15-[address] [facility] Start: 01-14-[address] [facility] Start: 01-14-2023 Assessment of risk of venous thromboembolism [facility] Start: 01-14-2023 Care regimes management [facility] Start: 01-14-2023 Insertion of catheter into peripheral vein [facility] Start: 01-14-2023 Measuring intake and output [facility] Start: 01-14-2023 Patient referral to dietitian [facility] Start: 01-14-2023 Providing care according to standard [facility] Start: 01-14-2023 Provision of activity privileges [facility] Start: 01-14-2023 [facility] Start: 01-14-2023 Following clinical pathway protocol [facility] Start: 01-14-[address] [facility] Start: 01-14-[address] [facility] Start: 01-12-[address] [facility] Start: 01-12-[address] [facility] Start: 10-08-2022 End: 12-08-2022 Bacteria identified in Wound by Culture ABSCESS AND WOUND CULTURE WITH GRAM STAIN Microbiology Routine Toe infection Expected: 10/08/2022, Expires: 12/08/2022 [facility] Work Phone: Comment on above: Expected: 10/08/2022, Expires: Start: 08-15-[address] [facility] Start: 08-14-2022 Provision of activity privileges [facility] Start: 08-13-2022 End: 08-13-[address] [facility] Start: 08-13-2022 [facility] Start: 08-13-2022 Inhalation therapy procedure [facility] Start: 08-12-2022 Following clinical pathway protocol [facility] Start: 08-12-2022 Assessment of risk of venous thromboembolism [facility] Start: 08-12-2022 Care regimes management [facility] Start: 08-12-2022 Insertion of catheter into peripheral vein [facility] Start: 08-12-2022 Measuring intake and output [facility] Start: 08-12-2022 Notification of physician [facility] Start: 08-12-2022 Providing care according to standard [facility] Start: 08-12-2022 Provision of activity privileges [facility] Start: 08-12-2022 [facility] Start: 08-12-[address] [facility] Start: 08-12-2022 [facility] Start: 08-12-2022 Patient referral to dietitian [facility] Start: 07-12-2022 DEPRESSION ASSESSMENT DEPRESSION ASSESSMENT [facility] Start: 06-30-[address] [facility] Work Phone: Start: 06-29-[address] [facility] Start: 06-29-[address] [facility] Work Phone: Start: 06-28-[address] [facility] Work Phone: Start: 06-27-[address] [facility] Work Phone: Start: 06-26-[address] [facility] Start: 06-26-2022 Elevation of affected extremity [facility] Start: 06-26-2022 [facility] Start: 06-26-2022 Debridement Debridement Wound (Right) [facility] Work Phone: Start: 06-26-[address] [facility] Work Phone: Start: 06-25-[address] [facility] Start: 06-25-[address] [facility] Start: 06-24-2022 Assessment of risk of venous thromboembolism [facility] Start: 06-24-2022 Care regimes management [facility] Start: 06-24-2022 Consultation for treatment [facility] Start: 06-24-2022 Insertion of catheter into peripheral vein [facility] Start: 06-24-2022 Providing care according to standard [facility] Start: 06-24-2022 Provision of activity privileges [facility] Start: 06-24-2022 Referral to occupational therapist [facility] Start: 06-24-2022 Referral to office technology instructor [facility] Start: 06-24-[address] [facility] Start: 06-24-2022 [facility] Start: 06-24-2022 Following clinical pathway protocol [facility] Start: 06-24-2022 End: 06-25-2022 [facility] Start: 06-24-[address] [facility] Work Phone: Start: 06-24-[address] [facility] Start: 06-24-2022 End: 06-24-[address] [facility] Work Phone: Start: 06-24-2022 Patient referral to dietitian [facility] Start: 06-23-2022 Cul bact aerobic addl meths definitive ea isol CULTURE AEROBIC IDENTIFY [facility] Start: 06-23-2022 Cul bact xcpt urine blood/stool aerobic isol CULTURE OTHR SPECIMN AEROBIC [facility] Start: 06-23-2022 Iadna s aureus amplified probe tq STAPH A DNA AMP PROBE [facility] Start: 06-23-2022 Smr prim src gram/giemsa stain bct fungi/cell SMEAR GRAM STAIN [facility] Start: 06-23-2022 [facility] Work Phone: Start: 04-27-2022 Hemoglobin A1c/Hemoglobin.total in Blood HBA1C [facility] Start: 04-09-[address] [facility] Work Phone: Start: 04-07-[address] [facility] Work Phone: Start: 04-07-2022 End: 04-07-[address] [facility] Work Phone: Start: 04-06-2022 Elevation of affected extremity [facility] Work Phone: Start: 04-06-2022 [facility] Work Phone: Start: 04-06-2022 End: 04-06-2022 Following clinical pathway protocol [facility] Work Phone: Start: 04-06-2022 Ambulation without limitation [facility] Work Phone: Start: 04-06-2022 Assessment of risk of venous thromboembolism [facility] Work Phone: Start: 04-06-2022 Care regimes management [facility] Work Phone: Start: 04-06-2022 Consultation for treatment [facility] Work Phone: Start: 04-06-2022 Elevation of affected extremity [facility] Work Phone: Start: 04-06-2022 Insertion of catheter into peripheral vein [facility] Work Phone: Start: 04-06-2022 Notification of physician [facility] Work Phone: Start: 04-06-2022 Patient referral to dietitian [facility] Work Phone: Start: 04-06-2022 Providing care according to standard [facility] Work Phone: Start: 04-06-2022 Referral to office technology instructor [facility] Work Phone: Start: 04-06-[address] [facility] Work Phone: Start: 04-06-2022 [facility] Work Phone: Start: 04-06-[address] [facility] Work Phone: Start: 04-06-[address] [facility] Work Phone: Start: 04-06-2022 End: 04-07-2022 [facility] Work Phone: Start: 04-06-2022 Patient referral to dietitian [facility] Work Phone: Start: 04-05-2022 Assay of lactate ASSAY OF LACTIC ACID [facility] Work Phone: Start: 04-05-2022 Basic metabolic panel calcium total METABOLIC PANEL TOTAL CA [facility] Work Phone: Start: 04-05-2022 Blood count complete auto&auto difrntl wbc COMPLETE CBC W/AUTO DIFF WBC [facility] Work Phone: Start: 04-05-2022 Culture bacterial blood aerobic w/id isolates BLOOD CULTURE FOR BACTERIA [facility] Work Phone: Start: 04-05-2022 Emergency department visit moderate severity EMERGENCY DEPT VISIT [facility] Work Phone: Start: 04-05-2022 Iv infusion ther proph addl sequential to 1 hr TX/PROPH/DG ADDL SEQ IV INF [facility] Work Phone: Start: 04-05-2022 Iv infusion therapy prophylaxis/dx ea hour THER/PROPH/DIAG IV INF ADDON [facility] Work Phone: Start: 04-05-2022 Iv infusion therapy/prophylaxis /dx 1st to 1 hr [facility] Start: 04-05-2022 Radex foot complete minimum 3 views X-RAY EXAM OF FOOT [facility] Work Phone: Start: 04-05-2022 End: 04-05-[address] [facility] Work Phone: Start: 03-23-2022 End: 04-06-2022 SARS-CoV-2 (COVID-19) RNA [Presence] in Respiratory specimen by REBECCA with probe detection 2019 CORONAVIRUS Microbiology Routine Acute cough Mild intermittent asthmatic bronchitis without complication Expected: 03/23/2022, Expires: 04/06/2022 [facility] Work Phone: Comment on above: Expected: 03/23/2022, Expires: Start: 03-12-2022 Influenza vaccination INFLUENZA (#1) [facility] Start: 01-30-[address] [facility] Work Phone: Start: 01-30-2022 Immunoglobulin measurement [facility] Work Phone: Start: 01-30-[address] [facility] Work Phone: Start: 01-30-2022 Vitamin B12 measurement [facility] Work Phone: Start: 01-30-2022 [facility] Work Phone: Start: 01-28-2022 HPV TESTING HPV TESTING [facility] Start: 01-28-2022 Screening for malignant neoplasm of cervix [facility] Start: 08-25-2021 COVID-19 VACCINE (2 - Moderna series) COVID-19 VACCINE (2 - Moderna series) [facility] Start: 03-10-2020 3 comp foot exam completed DIABETIC FOOT EXAM [facility] Start: 03-10-2020 ANNUAL PCP TEAM CHRONIC DISEASE VISIT ANNUAL PCP TEAM CHRONIC DISEASE VISIT [facility] Start: 03-10-2020 Diabetic foot examination Diabetic Foot Exam [facility] Start: 05-03-2018 PAP TESTING PAP TESTING [facility] Start: 05-03-2018 Screening for malignant neoplasm of cervix Pap Testing [facility] Start: 05-03-2016 Screening for malignant neoplasm of cervix Cervical Cancer Screening [facility] Start: 06-07-2014 Hepatitis B surface antibody level LDL CHOLESTEROL [facility] Start: 04-12-2014 Hepatitis B screening URINE ALBUMIN:CREATININE RATIO [facility] Start: 03-31-2014 Glaucoma screening Dilated Retinal Exam [facility] Start: 03-31-2014 Hepatitis C antibody, confirmatory test DILATED RETINAL EXAM [facility] Start: 03-06-2014 PNEUMOCOCCAL (2 - PCV) PNEUMOCOCCAL (2 - PCV) [facility] [facility] Start: 03-06-[address] [facility] Start: 03-06-2014 Pneumococcal Vaccine: Pediatrics (0 to 5 Years) and At-Risk Patients (6 to 64 Years) (2 - PCV) Pneumococcal Vaccine: Pediatrics (0 to 5 Years) and At-Risk Patients (6 to 64 Years) (2 - PCV) [facility] Start: 01-28-2013 Screening for malignant neoplasm of cervix Pap Smear [facility] Start: 01-28-2011 DTaP/Tdap/Td Vaccines (1 - Tdap) DTaP/Tdap/Td Vaccines (1 - Tdap) [facility] Start: 01-28-2011 HEPATITIS B (1 of 3 - Risk 3-dose series) HEPATITIS B (1 of 3 - Risk 3-dose series) [facility] Start: 01-28-2011 Hepatitis B Vaccine (1 of 3 - 19+ 3-dose series) Hepatitis B Vaccine (1 of 3 - 19+ 3-dose series) [facility] Start: 01-28-2011 Urine microalbumin profile [facility] Start: 01-28-2010 HEPATITIS C SCREENING HEPATITIS C SCREENING [facility] Start: 01-28-2010 Hepatitis C screening Hepatitis C Screening [facility] Start: 01-28-2010 HIV SCREENING HIV SCREENING [facility] Start: 01-28-2010 HIV screening HIV Screening [facility] Start: 2004 Adult depression screening assessment DEPRESSION SCREENING [facility] Start: 01-28-2002 Diabetic foot examination Diabetes: Foot Exam [facility] Start: 01-28-2002 Glaucoma screening Diabetes: Retinopathy Screening [facility] Start: 01-28-2002 Preventive dental service Diabetes: Dental Exam [facility] Start: 01-28-1993 MMR Vaccines (1 of 1 - Standard series) MMR Vaccines (1 of 1 - Standard series) [facility] Start: 01-28-1993 Varicella vaccination Varicella Vaccines (1 of 2 - 2-dose childhood series) [facility] Start: 1992 COVID-19 VACCINE (#1) COVID-19 VACCINE (#1) [facility] Start: 1992 Hemoglobin A1c measurement Diabetes: Hemoglobin A1C [facility] Start: 1992 HEPATITIS B (1 of 3 - 3-dose series) HEPATITIS B (1 of 3 - 3-dose series) [facility] Start: 1992 Hepatitis B Vaccine (1 of 3 - 3-dose series) Hepatitis B Vaccine (1 of 3 - 3-dose series) [facility] Start: 1992 Hepatitis B Vaccines (1 of 3 - 3-dose series) Hepatitis B Vaccines (1 of 3 - 3-dose series) [facility] Start: 1992 HIV screening HIV Screening [facility] Start: 1992 Lipid panel Lipid Panel [facility] Acetone [Presence] i n Serum or Plasma [facility] Acid fast bacilli culture [facility] Work Phone: Acid fast bacilli culture [facility] Alanine aminotransfe rase [Enzymatic activity/volume] in Serum or Plasma [facility] Alanine aminotransfe rase [Enzymatic activity/volume] in Serum or Plasma [facility] Alanine aminotransfe rase [Enzymatic activity/volume] in Serum or Plasma [facility] Alanine aminotransfe rase [Enzymatic activity/volume] in Serum or Plasma [facility] Alanine aminotransfe rase [Enzymatic activity/volume] in Serum or Plasma [facility] Albumin [Mass/volume ] in Serum or Plasma [facility] Albumin [Mass/volume ] in Serum or Plasma [facility] Albumin [Mass/volume ] in Serum or Plasma [facility] Albumin [Mass/volume ] in Serum or Plasma [facility] Albumin [Mass/volume ] in Serum or Plasma [facility] Albumin [Moles/volum e] in Serum or Plasma [facility] Work Phone: Albumin/Globulin ratio [facility] Work Phone: Alkaline phosphatase [Enzymatic activity/volume] in Serum or Plasma [facility] Alkaline phosphatase [Enzymatic activity/volume] in Serum or Plasma [facility] Alkaline phosphatase [Enzymatic activity/volume] in Serum or Plasma [facility] Alkaline phosphatase [Enzymatic activity/volume] in Serum or Plasma [facility] Alkaline phosphatase [Enzymatic activity/volume] in Serum or Plasma [facility] Anion gap measurement [facility] Work Phone: Anion gap measurement [facility] Anion gap measurement [facility] Anion gap measurement [facility] Anion gap measurement [facility] Anion gap measurement [facility] Anion gap measurement [facility] Antibody to lupus La protein measurement [facility] Work Phone: Antibody to SS-A measurement [facility] Work Phone: Aspartate aminotrans ferase [Enzymatic activity/volume] in Serum or Plasma [facility] Aspartate aminotrans ferase [Enzymatic activity/volume] in Serum or Plasma [facility] Aspartate aminotrans ferase [Enzymatic activity/volume] in Serum or Plasma [facility] Aspartate aminotrans ferase [Enzymatic activity/volume] in Serum or Plasma [facility] Aspartate aminotrans ferase [Enzymatic activity/volume] in Serum or Plasma [facility] Bacteria identified in Blood by Culture Blood Culture [facility] Bacteria identified in Unspecified specimen by Anaerobe culture [facility] Work Phone: Bacteria identified in Unspecified specimen by Anaerobe culture [facility] Bacteria identified in Urine by Culture Urine Culture [facility] Bilirubin measurement, urine [facility] Bilirubin measurement, urine [facility] Bilirubin, total measurement [facility] Bilirubin, total measurement [facility] Bilirubin, total measurement [facility] Bilirubin, total measurement [facility] Bilirubin, total measurement [facility] Bilirubin.direct [Mass/volume] in Serum or Plasma [facility] Blood culture [facility] Work Phone: BUN/Creatinine ratio [facility] Work Phone: BUN/Creatinine ratio [facility] BUN/Creatinine ratio [facility] BUN/Creatinine ratio [facility] BUN/Creatinine ratio [facility] BUN/Creatinine ratio [facility] BUN/Creatinine ratio [facility] Calcium [Mass/volume ] in Serum or Plasma [facility] Work Phone: Calcium [Mass/volume ] in Serum or Plasma [facility] Calcium [Mass/volume ] in Serum or Plasma [facility] Calcium [Mass/volume ] in Serum or Plasma [facility] Calcium [Mass/volume ] in Serum or Plasma [facility] Calcium [Mass/volume ] in Serum or Plasma [facility] Calcium [Mass/volume ] in Serum or Plasma [facility] Carbon dioxide, tota l [Moles/volume] in Serum or Plasma [facility] Work Phone: Carbon dioxide, tota l [Moles/volume] in Serum or Plasma [facility] Carbon dioxide, tota l [Moles/volume] in Serum or Plasma [facility] Carbon dioxide, tota l [Moles/volume] in Serum or Plasma [facility] Carbon dioxide, tota l [Moles/volume] in Serum or Plasma [facility] Carbon dioxide, tota l [Moles/volume] in Serum or Plasma [facility] Carbon dioxide, tota l [Moles/volume] in Serum or Plasma [facility] CBC W Auto Different ial panel - Blood [facility] Centromere protein B Ab [Units/volume] in Serum [facility] Work Phone: Chloride [Moles/volu me] in Serum or Plasma [facility] Work Phone: Chloride [Moles/volu me] in Serum or Plasma [facility] Chloride [Moles/volu me] in Serum or Plasma [facility] Chloride [Moles/volu me] in Serum or Plasma [facility] Chloride [Moles/volu me] in Serum or Plasma [facility] Chloride [Moles/volu me] in Serum or Plasma [facility] Chloride [Moles/volu me] in Serum or Plasma [facility] Choriogonadotropin.b eta subunit ( test) [Presence] in Serum or Plasma [facility] Chromatin Ab [Units/ volume] in Serum or Plasma [facility] - Serum or Plasma [facility] Creatinine [Moles/vo lume] in Serum or Plasma [facility] Work Phone: Creatinine [Moles/vo lume] in Serum or Plasma [facility] Creatinine [Moles/vo lume] in Serum or Plasma [facility] Creatinine [Moles/vo lume] in Serum or Plasma [facility] Creatinine [Moles/vo lume] in Serum or Plasma [facility] Creatinine [Moles/vo lume] in Serum or Plasma [facility] Creatinine [Moles/vo lume] in Serum or Plasma [facility] DNA double strand Ab [Units/volume] in Serum [facility] Work Phone: Electrophoresis: [id number] [facility] Work Phone: Electrophoresis: gabriella ma globulin [facility] Work Phone: Erythrocyte sediment ation rate [facility] Globulin measurement [facility] Work Phone: Glucose [Mass/volume ] in Serum or Plasma [facility] Work Phone: Glucose [Mass/volume ] in Serum or Plasma [facility] Glucose [Mass/volume ] in Serum or Plasma [facility] Glucose [Mass/volume ] in Serum or Plasma [facility] Glucose [Mass/volume ] in Serum or Plasma [facility] Glucose [Mass/volume ] in Serum or Plasma [facility] Glucose [Mass/volume ] in Serum or Plasma [facility] Hematocrit [Volume F raction] of Blood [facility] Work Phone: Hematocrit [Volume F raction] of Blood [facility] Hematocrit [Volume F raction] of Blood [facility] Hematocrit [Volume F raction] of Blood [facility] Hematocrit [Volume F raction] of Blood [facility] Hematocrit [Volume F raction] of Blood [facility] Hemoglobin [Mass/vol ume] in Blood [facility] Work Phone: Hemoglobin [Mass/vol ume] in Blood [facility] Hemoglobin [Mass/vol ume] in Blood [facility] Hemoglobin [Mass/vol ume] in Blood [facility] Hemoglobin [Mass/vol ume] in Blood [facility] Hemoglobin [Mass/vol ume] in Blood [facility] Hemoglobin [Presence ] in Urine [facility] Hemoglobin [Presence ] in Urine [facility] IgA [Mass/volume] in Serum or Plasma [facility] Work Phone: IgE [Units/volume] i n Serum or Plasma [facility] Work Phone: IgG [Mass/volume] in Serum or Plasma [facility] Work Phone: IgM [Mass/volume] in Serum or Plasma [facility] Work Phone: Neva-1 extractable nuc lear Ab [Units/volume] in Serum [facility] Work Phone: Lactic acid measurement [facility] Work Phone: Leukocytes [#/volume ] in Blood [facility] Work Phone: Leukocytes [#/volume ] in Blood [facility] Leukocytes [#/volume ] in Blood [facility] Leukocytes [#/volume ] in Blood [facility] Leukocytes [#/volume ] in Blood [facility] Leukocytes [#/volume ] in Blood [facility] Mean corpuscular hem oglobin concentration determination [facility] Work Phone: Mean corpuscular hem oglobin concentration determination [facility] Mean corpuscular hem oglobin concentration determination [facility] Mean corpuscular hem oglobin concentration determination [facility] Mean corpuscular hem oglobin concentration determination [facility] Mean corpuscular hem oglobin concentration determination [facility] Mean corpuscular hem oglobin determination [facility] Work Phone: Mean corpuscular hem oglobin determination [facility] Mean corpuscular hem oglobin determination [facility] Mean corpuscular hem oglobin determination [facility] Mean corpuscular hem oglobin determination [facility] Mean corpuscular hem oglobin determination [facility] Measurement of immun oglobulin A in serum specimen [facility] Work Phone: Measurement of keton es in urine using dipstick [facility] Measurement of keton es in urine using dipstick [facility] Measurement of renal function [facility] Work Phone: Measurement of renal function [facility] Measurement of renal function [facility] Measurement of renal function [facility] Measurement of renal function [facility] Measurement of renal function [facility] Measurement of renal function [facility] Microbial culture, routine Wound Culture [facility] Work Phone: Microscopic urinalysis [facility] Work Phone: Microscopic urinalysis [facility] Microscopic urinalysis [facility] Mycobacterium sp marko ntified in Unspecified specimen by Organism specific culture [facility] Work Phone: Mycobacterium sp marko ntified in Unspecified specimen by Organism specific culture [facility] Neutrophil count [facility] Work Phone: Neutrophil count [facility] Neutrophil count [facility] Neutrophil count [facility] Neutrophil count [facility] Neutrophil count [facility] Neutrophil cytoplasm ic Ab.classic [Units/volume] in Serum [facility] Work Phone: Neutrophil percent differential count [facility] Work Phone: Neutrophil percent differential count [facility] Neutrophil percent differential count [facility] Neutrophil percent differential count [facility] Neutrophil percent differential count [facility] Neutrophil percent differential count [facility] End: 03-31-2024 NM Stomach Views for gastric emptying solid phase W radionuclide PO NM GASTRIC EMPTYING SOLID Radiology Routine Nausea 1 Occurrences starting 03/02/2023 until 03/31/2024 [facility] Work Phone: Comment on above: 1 Occurrences starting 03/02/2023 until 03/31/2024 Organism count, micr oscopic method [facility] Work Phone: P-ANCA measurement [facility] Work Phone: Patient Education [facility] Work Phone: Patient referral [facility] Work Phone: pH of Urine [facility] pH of Urine [facility] Platelets [#/volume] in Blood [facility] Work Phone: Platelets [#/volume] in Blood [facility] Platelets [#/volume] in Blood [facility] Platelets [#/volume] in Blood [facility] Platelets [#/volume] in Blood [facility] Platelets [#/volume] in Blood [facility] Potassium [Moles/vol ume] in Serum or Plasma [facility] Work Phone: Potassium [Moles/vol ume] in Serum or Plasma [facility] Potassium [Moles/vol ume] in Serum or Plasma [facility] Potassium [Moles/vol ume] in Serum or Plasma [facility] Potassium [Moles/vol ume] in Serum or Plasma [facility] Potassium [Moles/vol ume] in Serum or Plasma [facility] Potassium [Moles/vol ume] in Serum or Plasma [facility] Protein electrophore sis panel - Serum or Plasma [facility] Work Phone: Radionuclide gastric emptying study [facility] Red blood cell count [facility] Work Phone: Red blood cell count [facility] Red blood cell count [facility] Red blood cell count [facility] Red blood cell count [facility] Red blood cell count [facility] Red cell distributio n width determination [facility] Work Phone: Red cell distributio n width determination [facility] Red cell distributio n width determination [facility] Red cell distributio n width determination [facility] Red cell distributio n width determination [facility] Red cell distributio n width determination [facility] SCL-70 extractable n uclear Ab [Units/volume] in Serum by Immunoassay [facility] Work Phone: Serum protein electrophoresis [facility] Work Phone: Jang extractable nu clear Ab [Presence] in Serum [facility] Work Phone: Sodium [Moles/volume ] in Serum or Plasma [facility] Work Phone: Sodium [Moles/volume ] in Serum or Plasma [facility] Sodium [Moles/volume ] in Serum or Plasma [facility] Sodium [Moles/volume ] in Serum or Plasma [facility] Sodium [Moles/volume ] in Serum or Plasma [facility] Sodium [Moles/volume ] in Serum or Plasma [facility] Sodium [Moles/volume ] in Serum or Plasma [facility] Specific gravity of Urine [facility] Specific gravity of Urine [facility] Tissue transglutamin ase IgA Ab [Units/volume] in Serum [facility] Work Phone: Total protein measurement [facility] Total protein measurement [facility] Total protein measurement [facility] Total protein measurement [facility] Total protein measurement [facility] Urea nitrogen [Mass/ volume] in Serum or Plasma [facility] Work Phone: Urea nitrogen [Mass/ volume] in Serum or Plasma [facility] Urea nitrogen [Mass/ volume] in Serum or Plasma [facility] Urea nitrogen [Mass/ volume] in Serum or Plasma [facility] Urea nitrogen [Mass/ volume] in Serum or Plasma [facility] Urea nitrogen [Mass/ volume] in Serum or Plasma [facility] Urea nitrogen [Mass/ volume] in Serum or [facility] Urinalysis, blood, qualitative [facility] Work Phone: Urinalysis, blood, qualitative [facility] Urinalysis, blood, qualitative [facility] Urine dipstick for glucose [facility] Urine dipstick for glucose [facility] Urine dipstick for l eukocyte esterase [facility] Urine dipstick for l eukocyte esterase [facility] Urine dipstick for nitrite [facility] Urine dipstick for nitrite W [facility] Urine dipstick for protein [facility] Urine dipstick for protein [facility] Urine examination [facility] Urine examination [facility] Urine microscopy: ep ithelial cells [facility] Work Phone: Urine microscopy: ep ithelial cells [facility] Urine microscopy: ep ithelial cells [facility] Urine Microscopy: white cells [facility] Urine Microscopy: white cells [facility] Urobilinogen [Presen ce] in Urine [facility] Urobilinogen [Presen ce] in Urine [facility] Vancomycin [Mass/vol ume] in Serum or Plasma --trough [facility] Work Phone: White blood cell count [facility] Work Phone: [facility] Immunizations Immunization Date Immunization Notes Care Provider Gabi perrin 06-30-2021 Covid (Moderna) [facility] Work Phone: [facility] 04-13-2013 influenza virus vacc ine, unspecified formulation Alyssa Jaime [employer] Work Phone: [facility] 03-06-2013 pneumococcal polysaccharide vaccine, 23 valent Alyssa Jaime [facility]TER[facility] Work Phone: [facility] Work Phone: Payers Date Payer Category Payer Self-pay [id number] 2021 Medicaid [id number] 2021 Medicaid [place] [facility] [place] [id number] 2021-[facility] [phone] [address] [address] [place] [address] Medicaid [id number] 2021 Medicaid [id number] 1992 Unknown [id number] 1992 Unknown [id number] 1992 Unknown [id number] [id number] 1992 Unknown [id number] [id number] Unknown [id number] [id number] Unknown [id number] [id number] Unknown [id number] [id number] Unknown [id number] [id number] Unknown [id number] [id number] Unknown [id number] [id number] Unknown [id number] [id number] Unknown [id number] [id number] Unknown [id number] [id number] Unknown [id number] [id number] Unknown [id number] [id number] Unknown [id number] [id number] Unknown [id number] [id number] Unknown [id number] [id number] Unknown [id number] [id number] Unknown [id number] [id number] Unknown [id number] [id number] Unknown [id number] Social History Date Type Detail Facility [facility] Work Phone: Start: 10-24-2021 End: 06-27-2023 Tobacco smoking status NYIS Unknown if ever smoked [facility] Start: 1990 Sex Assigned At Female W [facility] Start: 03-03-2013 End: 11-25-2024 Tobacco smoking status NHIS Smokes tobacco daily [facility] Work Phone: History of tobacco use Cigarette Smoker [facility] Start: 05-15-2021 End: 02-02-2022 Alcohol intake Current drinker of alcohol (finding) [facility] Start: 05-03-2013 History SDOH Alcohol Comment Seldom [facility] Start: 1990 Sex Assigned At Not on file [facility] Start: 04-15-2021 End: 01-24-2023 Exposure to SARS-CoV-2 (event) Not sure [facility] Work Phone: Start: 03-03-2013 End: 02-10-2023 Cigarettes smoked current (pack per day) - Reported 0.5 [facility] Start: 03-03-2013 End: 06-26-2024 Tobacco use and exposure Smokeless tobacco non-user [facility] Start: 01-10-2023 Tobacco smoking status Smoker (humberto caban) [facility] Start: 01-24-2023 End: 02-10-2023 Alcohol Use Disorder Identification Test - Consumption [AUDIT-C] [facility] How often to you hav e a drink containing alcohol? Monthly or less [facility] How many standard dr inks containing alcohol do you have on a typical day? 1 or 2 [facility] How often do you hav e 6 or more drinks on 1 occasion? Less than monthly [facility] Start: 01-24-2023 Alcohol Comment occ. [facility] National Score (1-10 0), lower number is lower risk 92 [facility] Work Phone: Start: 02-19-2023 End: 07-03-2024 Alcohol intake Ex-drinker (finding) [facility] Start: 02-18-2023 Alcohol Comment rare [facility] (I/We) worried wheana er (my/our) food would run out before (I/we) got money to buy more. Never true [facility] Work Phone: In the past 12 month s, was there a time when you were not able to pay the mortgage or rent on time? No [facility] Work Phone: Start: 10-19-2024 End: 11-01-2024 Sex Female (finding) [facility] NEGATED: Highlighted row [facility] Medical Equipment Procedure Code Equipment Code Equipment Origin al Text Equipment Identifier Dates Repair, tendon, Achilles BIOSKIN, 2 X 4 FDA Start: 12-24-2023 Repair, tendon, Achilles FIBERTAPE FDA Start: 12-24-2023 Repair, tendon, Achilles SUTURETAPE,FIBER LOOP FDA Start: 12-24-2023 Repair, tendon, Achilles Aria Citrefix Xpress System FDA Start: 12-24-2023 Repair, tendon, Achilles Dupont Citrefix Xpress System FDA Start: 12-24-2023 Repair, tendon, Achilles VIAFLOW, 1CC FDA Start: 12-24-2023 Repair, tendon, Achilles Guevara Graft Jacket Now Standard FDA Start: 12-24-2023 Repair, tendon, Achilles [id number] FDA Start: 12-24-2023 Repair, tendon, Achilles BIOSKIN, 2 X 4 FDA Start: 12-24-2023 Repair, tendon, Achilles FIBERTAPE FDA Start: 12-24-2023 Repair, tendon, Achilles SUTURETAPE,FIBER LOOP FDA Start: 12-24-2023 Repair, tendon, Achilles Dupont Citrefix Xpress System FDA Start: 12-24-2023 Repair, tendon, Achilles Aria Citrefix Xpress System FDA Start: 12-24-2023 Repair, tendon, Achilles VIAFLOW, 1CC FDA Start: 12-24-2023 Repair, tendon, Achilles Guevara Graft Jacket Now Standard FDA Start: 12-24-2023 Repair, tendon, Achilles BIOSKIN, 2 X 4 FDA Start: 12-24-2023 Repair, tendon, Achilles FIBERTAPE FDA Start: 12-24-2023 Repair, tendon, Achilles SUTURETAPE,FIBER LOOP FDA Start: 12-24-2023 Repair, tendon, Achilles Dupont Citrefix Xpress System FDA Start: 12-24-2023 Repair, tendon, Achilles Aria Citrefix Xpress System FDA Start: 12-24-2023 Repair, tendon, Achilles VIAFLOW, 1CC FDA Start: 12-24-2023 Repair, tendon, Achilles Guevara Graft Jacket Now Standard FDA Start: 12-24-2023 Repair, tendon, Achilles BIOSKIN, 2 X 4 FDA Start: 12-24-2023 Repair, tendon, Achilles FIBERTAPE FDA Start: 12-24-2023 Repair, tendon, Achilles SUTURETAPE,FIBER LOOP FDA Start: 12-24-2023 Repair, tendon, Achilles Dupont Citrefix Xpress System FDA Start: 12-24-2023 Repair, tendon, Achilles Dupont Citrefix Xpress System FDA Start: 12-24-2023 Repair, tendon, Achilles VIAFLOW, 1CC FDA Start: 12-24-2023 Repair, tendon, Achilles Guevara Graft Jacket Now Standard FDA Start: 12-24-2023 Repair, tendon, Achilles BIOSKIN, 2 X 4 FDA Start: 12-24-2023 Repair, tendon, Achilles FIBERTAPE FDA Start: 12-24-2023 Repair, tendon, Achilles SUTURETAPE,FIBER LOOP FDA Start: 12-24-2023 Repair, tendon, Achilles Aria Citrefix Xpress System FDA Start: 12-24-2023 Repair, tendon, Achilles Aria Citrefix Xpress System FDA Start: 12-24-2023 Repair, tendon, Achilles VIAFLOW, 1CC FDA Start: 12-24-2023 Repair, tendon, Achilles Guevara Graft Jacket Now Standard FDA Start: 12-24-2023 Repair, tendon, Achilles BIOSKIN, 2 X 4 FDA Start: 12-24-2023 Repair, tendon, Achilles FIBERTAPE FDA Start: 12-24-2023 Repair, tendon, Achilles SUTURETAPE,FIBER LOOP FDA Start: 12-24-2023 Repair, tendon, Achilles Aria Citrefix Xpress System FDA Start: 12-24-2023 Repair, tendon, Achilles Dupont Citrefix Xpress System FDA Start: 12-24-2023 Repair, tendon, Achilles VIAFLOW, 1CC FDA Start: 12-24-2023 Repair, tendon, Achilles Guevara Graft Jacket Now Standard FDA Start: 12-24-2023 Repair, tendon, Achilles BIOSKIN, 2 X 4 FDA Start: 12-24-2023 Repair, tendon, Achilles FIBERTAPE FDA Start: 12-24-2023 Repair, tendon, Achilles SUTURETAPE,FIBER LOOP FDA Start: 12-24-2023 Repair, tendon, Achilles Aria Citrefix Xpress System FDA Start: 12-24-2023 Repair, tendon, Achilles Dupont Citrefix Xpress System FDA Start: 12-24-2023 Repair, tendon, Achilles VIAFLOW, 1CC FDA Start: 12-24-2023 Repair, tendon, Achilles Guevara Graft Jacket Now Standard FDA Start: 12-24-2023 Incision and drainage, abscess DRESSING,SURGICEL 4x8 FDA Start: 07-23-2023 Incision and drainage, abscess Bone grafting [facility] [phone] [phone] FDA Start: 07-23-2023 Incision and drainage, abscess DRESSING,SURGICEL 4x8 FDA Start: 07-23-2023 Incision and drainage, abscess DRESSING,SURGICEL 4x8 FDA Start: 07-23-2023 Incision and drainage, abscess DRESSING,SURGICEL 4x8 FDA Start: 07-23-2023 Incision and drainage, abscess DRESSING,SURGICEL 4x8 FDA Start: 07-23-2023 Incision and drainage, abscess DRESSING,SURGICEL 4x8 FDA Start: 07-23-2023 Incision and drainage, abscess DRESSING,SURGICEL 4x8 FDA Start: 07-23-2023 Incision and drainage, abscess DRESSING,SURGICEL 4x8 FDA Start: 07-23-2023 [id number] Start: 11-27-2013 End: 02-18-2023 Comment on above: Test blood sugar(s) 1 times daily. Dx: 250.02. Insulin: No Test blood sugar(s) 1 daily. Dx: 250.02. 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, Laundry, Meal preparation, Personal ADL, Shopping [facility] 02-11-2023 Functional Status Identified as high risk, Fall ID band on, Door open, Room check performed [facility] 02-11-2023 Functional Status [facility] 02-11-2023 Functional Status [facility] 02-11-2023 Functional Status Patient refused [facility] 02-10-2023 Functional Status [facility] 01-15-2023 Functional status Up ad nella [facility] Work Phone: 01-10-2023 Functional Status Independent [facility] 01-10-2023 Functional Status Standard Safet y Call device within reach, Bed in low position, Wheels locked, Safety level maintained [facility] 08-15-2022 Functional status Ambulates [facility] Work Phone: 06-29-2022 Functional status Ambulates;Up a d nella;Bedside Commode [facility] Work Phone: 06-25-2022 Functional status Ambulates;Up a d nella;Bathroom Privilege [facility] Work Phone: 04-09-[address] [facility] Work Phone: Mental Status Date Assessment Result Facility 11-28-2024 Cognitive function Voice/Name [facility] Work Phone: 07-23-2023 Cognitive function Voice/Name [facility] Work Phone: 05-08-2023 Cognitive function Voice/Name [facility] Work Phone: 02-11-2023 Mental Status Oriented x 4 [facility] 02-11-2023 Mental Status [facility] 02-10-2023 Mental Status [facility] 01-14-2023 Cognitive function Appropriate;Cooperativ e [facility] Work Phone: 01-10-2023 Mental Status Orientation Oriented x 4 [facility] 08-15-2022 Cognitive function Voice/Name [facility] Work Phone: 08-12-2022 Cognitive function Level Of Cons ciousness Awake;Alert;Appropriate [facility] Work Phone: 06-29-2022 Cognitive function Voice/Name [facility] Work Phone: 06-25-2022 Cognitive function Voice/Name [facility] Work Phone: 04-09-2022 Cognitive function Voice/Name [facility] Work Phone: Clinical Notes 04-28-2013 to 12-25-2024 Note Date & Type Note Facility 12-25-2024 Radiology Diagnostic study note [facility] Imaging Services [address] [place] [address] Abdomen Limited MR#: [id number] Acct: [id number] Name: GIVENSGHISLAINE Rep #: [id number] : 1990 F 34 From: Yamila Mcginnis MD PCP: BROOKLYN Warren NP-C Status: REG CLI Study:Abdomen Limited Date of Exam: 12/10 01/03 Exam# [id number] Ordering Dr: Nayana Peter PROCEDURE: ABDOMEN LIMITED 12/25/2024 REASON FOR EXAM: ELEVATED LFTS TECHNIQUE: Complete abdominal ultrasound garcia-scale images with color doppler. PATIENT PREPARATION: Per protocol COMPARISON: CT scan on 11/27/2024. FINDINGS: The liver measures 16.1 cm. Increased hepatic echogenicity suggestive of hepatic steatosis. Mildly heterogeneous hepatic echotexture. Unremarkable flow in the main portal vein. Mildly distended gallbladder measuring 10.3 cm. No evidence of pericholecystic free fluid. Negative sonographic Morris. No evidence of cholelithiasis. Normal gallbladder wall thickness measuring 3 mm. Nondilated common bile duct measuring 6 mm. Unremarkable visualized pancreas. Unremarkable right kidney measuring 12.5 x 6.5 x 5 cm. Normal right renal cortical thickness measuring 1.5 cm. No evidence of hydronephrosis or calculi. US/Abdomen Limited IMPRESSION: Hepatic steatosis. Mildly heterogeneous hepatic echotexture. No evidence of cholelithiasis or acute cholecystitis. [facility] CC: BROOKLYN Solorzano; MIGUEL A South ~ Hearing Aid Assistant: Signed [facility] 11-28-[address] [facility] 11-28-2024 Note [facility] Medical Records Department [address] [place] [id number] Discharge Summary 11/28/24 1203 MR#: [id number] Acct: [id number] Name: GHISLAINE GIVENS Rep #: [id number] : 1990 34 From: Gale Lr DO PCP: BROOKLYN Warren NP-C Status:ADM IN Location: CA3 OF514-9 Providers Date of Admission: 11/25/24 Date of Discharge: 11/28/24 Primary Care Physician: BROOKLYN Warren NP-C Consultations 11/25/24 15:14 Consult: General Surgery Routine Consulting Provider: Annalise Welch Reason for Consult: severe constipation, stercoral colitis EMERGENT Consult: No MD Notified: Yes Date Notified: 11/25/24 Time Notified: 13:41 Method of Notification: Text Reason For Visit: STERCORAL PROCTOCOLITIS DUE TO SEVERE CONSTIPATION Diagnosis Discharge Diagnosis (1) Colitis: Status: Acute Code(s): K52.9 - Noninfective gastroenteritis and colitis, unspecified (2) Acute proctitis: Status: Acute Code(s): K62.89 - Other specified diseases of anus and rectum (3) Fecal impaction: Status: Acute Code(s): K56.41 - Fecal impaction Medications at Discharge Home Medications insulin glargine 100 unit/mL (3 mL) subcutaneous pen (Lantus Solostar U-100 Insulin) 20 unit subcut BID diabetes 08/12/22 trazodone 300 mg tablet 200 mg PO QHS PRN insomnia 07/16/23 albuterol sulfate 90 mcg/actuation aerosol inhaler 2 puff inhalation Q4H PRN shortness of breath or wheezing 11/25/24 dulaglutide 4.5 mg/0.5 mL subcutaneous pen injector (Trulicity) 4.5 mg subcut SA 11/25/24 amoxicillin 875 mg-potassium clavulanate 125 mg tablet 1 tab PO BIDCM 7 days #14 tabs 11/28/24 dicyclomine 10 mg/mL intramuscular solution 20 mg (2 mL) IM 4X/DAY #0 mL 11/28/24 polyethylene glycol 3350 17 gram/dose oral powder (ClearLax) 17 g PO DAILY #119 grams 11/28/24 scopolamine base 1 mg over 3 days transdermal patch 1 patch transdermal Q3D #4 ea 11/28/24 tramadol 50 mg tablet 50 mg PO Q8H PRN pain #9 tabs 11/28/24 Hospital Course Operations None Procedures - (CT scan abdomen pelvis x 2) Summary of Care Provided Minutes Spent on Discharge: 37 Hospital Course: Patient is a 34-year-old white female who presented to the emergency department at [facility] on 11/25/2024 with a chief complaint of abdominal pain and constipation. Patient does have a history of diabetes. She stated that she had struggled with constipation over the years and takes laxatives. 3 days prior to presentation she took a laxative due to constipation and subsequently started having diarrhea. She also complained of cramping and was worried that she may have fecal impaction. She also complained of nausea and vomiting. She reported that her abdominal pain was helped by taking walks and getting in the hot shower. She did admit to a history of cannabis use and reported that her last use was probably on Wednesday however she would not 100% certain. Vital signs on presentation showed temperature 96.8, heart rate 112, respiratory 20, blood pressure is 121/91 pulse ox was 99% room air. She had leukocytosis white count of 17.6 hemoglobin was 11 platelets were normal. Chemistry panel was overall unremarkable. UA was not consistent with infection. Acute abdominal series was performed and was consistent with fecal retention in the colon consistent with constipation and CT of the abdomen pelvis showed fecal impaction with wall thickening of the distal colon and rectum suggestive of colitis as well as hepatomegaly with fatty infiltration. The patient was admitted to the medical floor with stercoral proctocolitis and overflow diarrhea in the setting of severe constipation. General surgery was consulted. She was placed on antibiotics with Zosyn and maintained on this course through the hospitalization. She was also placed on laxative and stool softeners, made n.p.o. and given IV fluids. She had several bowel movements with utilization of the stool softener and laxative overnight from 11/26/2024 through 11/27/2024 but was still complaining of nausea and vomiting. This is when I questioned her more about her marijuana use and she admitted the above. She was still complaining of severe abdominal pain so a repeat CT of the abdomen pelvis was performed. 48 hours after admission on 11/27/2024 and showed slight interval improvement in her colitis and fatty infiltration liver with sludge in the gallbladder. No real acute abnormality was noted and her constipation had resolved. Patient took frequent showers when she was hospitalized and walked the hallways without difficulty. On 11/28/2024 I went in to reevaluate her and she appeared comfortable and sleeping when I walked in the room however when she realized I was there she seemed more uncomfortable started writhing around in bed complaining of severe abdominal pain. We discussed the overall plan of care with a (more content not included)... [facility] 11-28-2024 Progress note Note Date/Time November 28, 2024 8:41a [facility] Medical Records Department [address] [place] [address] Progress Note - Surgery 11/28/24756 MR#: [id number] Acct: [id number] Name: GHISLAINE GIVENS Rep #:[id number] : 1990 34 From: Clare SIMONC PCP: BROOKLYN Warren, SHIPFITTERS SUPERVISOR-C Statu s:ADM IN Location: MS3 HS700-4 Subjective Subjective Patient was walking the hallway this morning. She started to cry and complain ofabdominal pain in the epigastric region once I approached her. Once we returned to patient room, she notes that her pain is all over and unable to describe the type of pain she is having. She notes not eating because of nausea. She states she has not had a bowel movement since 11/26. Objective Data Objective Data Vital Signs: Vital Signs Temp Pulse Resp BP Pulse Ox O2 Del Method 98 F 83 16 133/94 H 100 Room Air 11/28/24 02:05 11/28/24 02:05 11/28/24 02:05 11/28/24 02:05 11/28/24 02:05 11/28/24 02:05 Oxygen Delivery Method Room Air Weight: 244 lb 1 oz Body Mass Index (BMI) 39.4 Intake & Output: Intake and Output for Last 24 Hours 11/26/24 11/27/24 11/28/24 23:59 23:59 23:59 Intake Total 1810 / 1950 647.51 / 647.51 50 / 50 Output Total 100 / 100 Balance 1710 / 1850 647.51 / 647.51 50 / 50 Lab / Micro Data 11/28/24 04:50 11/28/24 04:50 Labs: Laboratory Results - last 24 hr 11/27/24 04:16: Total Bilirubin 0.35, Direct Bilirubin 0.14, AST 21, ALT 12, Alkaline Phosphatase 88, Total Protein 7.1, Albumin 3.5, Globulin 3.6 11/27/24 12:22: POC Glucose 197 H 11/27/24 16:50: POC Glucose 147 H 11/27/24 23:02: POC Glucose 175 H 11/28/24 04:50: WBC 12.2 H, RBC 4.44, Hgb 12.1, Hct 37.0, MCV 83.3, MCH 27.3, MCHC 32.7, RDW Std Deviation 41.8, RDW Coeff of John 13.7, Plt Count 400, MPV 9.3, Immature Gran % (Auto) 0.800, Neut % (Auto) 49.8, Lymph % (Auto) 43.0 H, Bacon % (Auto) 5.3, Eos % (Auto) 0.5, Baso % (Auto) 0.6, Absolute Neuts (auto) 6.1, Absolute Lymphs (auto) 5.24 H, Nucleated RBC % 0, Sodium 141, Potassium 3.5, Chloride 104, Carbon Dioxide 24.7, Anion Gap 12, BUN 12, Creatinine 1.02, Estim Creat Clear Calc 99.83, Est GFR (MDRD) Non-Af 75, BUN/Creatinine Ratio 12.2, Glucose 134 H, Calcium 7.9 11/28/24 05:10: POC Glucose 127 H Micro: Microbiology 11/25/24 13:15 Blood Culture (Wb) - Anticubital Left Blood Culture - Preliminary No growth in 48 hours. 11/25/24 12:16 Blood Culture (Wb) - Anticubital Left Blood Culture - Preliminary No growth in 48 hours. Radiography Diagnostic Testing: Radiology Impression Abdomen/Pelvis CT 11/27/24 08:08 IMPRESSION: Fatty infiltration of the liver. Sludge is seen in the gallbladder lumen. Findings suggestive of colitis involving the rectosigmoid colon. There has beenmild improvement as compared to prior study. Reading Location: [facility] Physical Exam GI GI Narrative: Abdomen- soft, nondistended. Pain out of proportion with palpation of abdomen Assessment & Plan Assessment/Plan (1) Colitis: (2) Acute proctitis: (3) Fecal impaction: PLAN: Plan I am following this patient in conjunction with Dr. Welch. Labs reviewed. Recommend daily Miralax Continue oral antibiotics for 7 more days No surgical intervention being recommended Fecal impaction has resolved Most recent CT ab/pel on 11/27 showed rectosigmoid colitis Recommend follow-up with PCP as an outpatient in 1 week Charges/Coding Visit Charges Inpatient E&M: 39804 Subs Hosp L2 11/28/24 0841 <Electronically signed by Clare GRADY PA-C> Cosigner Signature (if applicable): CC: ~ Signed [facility] Work Phone: 1(519) 964-347205-20-2025 Progress note [facility] Medical Records Department [address] [place] [address] Progress Note - Surgery 11/28/24756 MR#: [id number] Acct: [id number] Name: GHISLAINE GIVENS Rep #:[id number] : 1990 34 From: Clare GRADY PA-C PCP: BROOKLYN Warren, SHIPFITTERS SUPERVISOR-C Statu s:ADM IN Location: CA3 [id number] Subjective Subjective Patient was walking the hallway this morning. She started to cry and complain ofabdominal pain in the epigastric region once I approached her. Once we returned to patient room, she notes that her pain is all over and unable to describe the type of pain she is having. She notes not eating because ofnausea. She states she has not had a bowel movement since 11/26. Objective Data Objective Data Vital Signs: Vital Signs Temp Pulse Resp BP Pulse Ox O2 Del Method 98 F 83 16 133/94 H 100 Room Air 11/28/24 02:05 11/28/24 02:05 11/28/24 02:05 11/28/24 02:05 11/28/24 02:05 11/28/24 02:05 Oxygen Delivery Method Room Air Weight: 244 lb 1 oz Body Mass Index (BMI) 39.4 Intake & Output: Intake and Output for Last 24 Hours 11/26/24 11/27/24 11/28/24 23:59 23:59 23:59 Intake Total 1810 / 1950 647.51 / 647.51 50 / 50 Output Total 100 / 100 Balance 1710 / 1850 647.51 / 647.51 50 / 50 Lab / Micro Data 11/28/24 04:50 11/28/24 04:50 Labs: Laboratory Results - last 24 hr 11/27/24 04:16: Total Bilirubin 0.35, Direct Bilirubin 0.14, AST 21, ALT 12, Alkaline Phosphatase 88, Total Protein 7.1, Albumin 3.5, Globulin 3.6 11/27/24 12:22: POC Glucose 197 H 11/27/24 16:50: POC Glucose 147 H 11/27/24 23:02: POC Glucose 175 H 11/28/24 04:50: WBC 12.2 H, RBC 4.44, Hgb 12.1, Hct 37.0, MCV 83.3, MCH 27.3, MCHC 32.7, RDW Std Deviation 41.8, RDW Coeff of John 13.7, Plt Count 400, MPV 9.3, Immature Gran % (Auto) 0.800, Neut % (Auto) 49.8, Lymph % (Auto) 43.0 H, Bacon % (Auto) 5.3, Eos % (Auto) 0.5, Baso % (Auto) 0.6, Absolute Neuts (auto) 6.1, Absolute Lymphs (auto) 5.24 H, Nucleated RBC % 0, Sodium 141, Potassium 3.5, Chloride 104, Carbon Dioxide 24.7, Anion Gap 12, BUN 12, Creatinine 1.02, Estim Creat Clear Calc 99.83, Est GFR (MDRD) Non-Af 75, BUN/Creatinine Ratio 12.2, Glucose 134 H, Calcium 7.9 11/28/24 05:10: POC Glucose 127 H Micro: Microbiology 11/25/24 13:15 Blood Culture (Wb) - Anticubital Left Blood Culture - Preliminary No growth in 48 hours. 11/25/24 12:16 Blood Culture (Wb) - Anticubital Left Blood Culture - Preliminary No growth in 48 hours. Radiography Diagnostic Testing: Radiology Impression Abdomen/Pelvis CT 11/27/24 08:08 IMPRESSION: Fatty infiltration of the liver. Sludge is seen in the gallbladder lumen. Findings suggestive of colitis involving the rectosigmoid colon. There has beenmild improvement as compared to prior study. Reading Location: [facility] Physical Exam GI GI Narrative: Abdomen- soft, nondistended. Pain out of proportion with palpation of abdomen Assessment & Plan Assessment/Plan (1) Colitis: (2) Acute proctitis: (3) Fecal impaction: PLAN: Plan I am following this patient in conjunction with Dr. Welch. Labs reviewed. Recommend daily Miralax Continue oral antibiotics for 7 more days No surgical intervention being recommended Fecal impaction has resolved Most recent CT ab/pel on 11/27 showed rectosigmoid colitis Recommend follow-up with PCP as an outpatient in 1 week Charges/Coding Visit Charges Inpatient E&M: 72755 Subs Hosp L2 11/28/24 0841 Cosigner Signature (if applicable): CC: ~ Signed [facility]05-19-2025 Progress note Author Gale Lr [facility] Note Date/Time November 27, 2024 3:45p m [facility] Medical Records Department [address] [place] [address] Progress Note - Hospitalist 11/27/24 0759 MR#: [id number] Acct: [id number] Name: GHISLAINE GIVENS Rep #:[id number] : 1990 34 From: Gale Lr DO PCP: BROOKLYN Warren, SHIPFITTERS SUPERVISOR-C Statu s:ADM IN Location: [place] [address] Reason for Visit Reason for Visit: Abdominal pain/constipation Subjective Subjective Patient reports she is having terrible abdominal pain today. States she had it yesterday. States she feels better in the shower. Does admit to marijuana use but states her last use was last Wednesday. She has had 2 CAT scans now. They both show proctitis. Repeat CAT scan today shows mild improvement and no further fecal impaction. Given this and the need to avoid recurrent constipation will discontinue morphine. Patient also with significant anxiety and has been on something for anxiety previously but unable to remember what this might be. Will start scheduled hydroxyzine. Recommend outpatient psychiatry follow-up after discharge. Objective Data Objective Data Vital Signs: Vital Signs Temp Pulse Resp BP Pulse Ox O2 Del Method 97.5 F L 98 14 134/86 H 100 Room Air 11/27/24 05:00 11/27/24 05:00 11/27/24 05:00 11/27/24 05:00 11/27/24 05:00 11/27/24 05:00 Oxygen Delivery Method Room Air Weight: 110.705 kg Body Mass Index (BMI) 39.4 Intake & Output: Intake and Output for Last 24 Hours 11/25/24 11/26/24 11/27/24 23:59 23:59 23:59 Intake Total 2052049 330 / 330 Output Total 100 / 100 Balance 2049 1710 / 1850 330 / 330 Lab / Micro Data 11/27/24 04:16 11/27/24 04:16 Labs: Laboratory Results - last 24 hr 11/26/24 11:51: POC Glucose 202 H 11/26/24 17:49: POC Glucose 218 H 11/26/24 21:33: POC Glucose 185 H 11/27/24 04:16: WBC 12.8 H, RBC 4.18 L, Hgb 11.3 L, Hct 34.7 L, MCV 83.0, MCH 27.0, MCHC 32.6, RDW Std Deviation 42.2, RDW Coeff of John 13.8, Plt Count 354, MPV 9.6, Immature Gran % (Auto) 0.600, Neut % (Auto) 75.9 H, Lymph % (Auto) 18.1L, Bacon % (Auto) 5.2, Eos % (Auto) 0.0, Baso % (Auto) 0.2, Absolute Neuts (auto)9.7 H, Absolute Lymphs (auto) 2.31, Nucleated RBC % 0, Sodium 139, Potassium 4.1, Chloride 102, Carbon Dioxide 24.2, Anion Gap 13, BUN 16, Creatinine 1.07, Estim Creat Clear Calc 95.16, Est GFR (MDRD) Non-Af 71, BUN/Creatinine Ratio 15.0, Glucose 217 H, Calcium 7.9 11/27/24 06:47: POC Glucose 185 H Radiography Diagnostic Testing: Radiology Impression KUB X-Ray 11/26/24 08:10 IMPRESSION: Constipation with suggestion of fecal impaction of the rectum. Reading Location: [facility] Physical Exam Const alert, oriented x3 and well nourished; Negative for no apparent distress, average body habitus or healthy appearing Constitutional Narrative: Obese, young middle-aged, white female, lying in bed appears markedly uncomfortable but not toxic HEENT head/scalp atraumatic and moist oral mucous membranes Head and Scalp: normocephalic Resp normal respiratory effort, no retractions, no use of accessory muscles and clearto auscultation bilaterally Auscultation: Negative for rales, rhonchi or wheezes Cardio regular rate, regular rhythm, S1 normal heart sound, S2 normal heart sound, no murmurs, no rub, no gallops and no clicks GI normal to inspection, nondistended, normoactive bowel sounds and soft to palpation GI Narrative: Diffusely tender Extremity no clubbing, cyanosis or edema Extremity Narrative: 2+ pedal and radial pulses Neuro oriented x3, moves all extremities and no focal motor deficits Psych Psych Narrative: Affect is flat, markedly anxious Assessment & Plan Assessment/Plan (1) Colitis: (2) Acute proctitis: (3) Fecal impaction: (4) Nausea & vomiting: PLAN: Plan Abdominal pain/nausea vomiting - Given severe abdominal pain repeat CT was performed today and is unremarkable compared to previous - Start scopolamine patch - Continue as needed Zofran and Phenergan - Discontinue IV morphine and Toradol - Continue oxycodone but would like to avoid to avoid further constipation - General Surgery is following-appreciate assistance - Patient does report marijuana use and that her symptoms get better when she isin a hot shower -may have cyclic vomiting syndrome related to marijuana use--> highly recommend cessation discussed with patient Acute proctitis/colitis - [place] to be stercoral colitis from severe constipation - Fecal impaction has been resolved - Continue Zosyn - Repeat CT shows improvement in colitis but not resolution - Will need total 14-day antibiotic regimen Fecal impaction - Resolved Leukocytosis - Trending down nicely - 27,000 on admission and now down to 12.8 - Continue IV antibiotics as ordered - Complete total 14-day antibiotic course as noted above DM-2 with hyperglycemia - Her home insulin was held - patient is on basal insulin 20 units twice daily - Restart basal insulin 20 units daily -Reduced dosing due to the fact that it is unclear whether or not she will tolerate p.o. diet much - Continue to hold Trulicity - Continue SSI - Carb controlled diet as ordered and patient tolerates Anxiety - I do feel it may be contributing some to her symptoms then her for her need ofself-medicating with THC - Start scheduled hydroxyzine Insomnia - Continue home trazodone Asthma - Continue on as needed albuterol Obesity - BMI 39.4 - Recommend weight loss - Complicates treatment, prognosis, outcomes DVT prophylaxis - Continue home enoxaparin CODE STATUS - Full code Charges/Coding Visit Charges Inpatient E&M: 65404 Subs Hosp L2 11/27/24 1545 <Electronically signed by Gale Lr DO> Cosigner Signature (if applicable): CC: ~ Signed [facility] Work Phone: 1(106) 840-607905-19-2025 Progress note Author Clare Loo [facility] Note Date/Time November 27, 2024 2:35p m [facility] Medical Records Department [address] [place] [address] Progress Note - Surgery 11/27/24 0845 MR#: [id number] Acct: [id number] Name: GHISLAINE GIVENS Rep #:[id number] : 1990 34 From: Clare GRADY PA-C PCP: BROOKLYN Warren, [employer] SUPERVISOR-C Statu s:ADM IN Location: [place] [address] Subjective Subjective Patient evaluated rolling restlessly in the bed with abdominal pain. She notes increased abdominal pain over night. She states every time she is awake she is nasueated. She notes spitting up clear fluid. She notes small amount of loose stools over night. Objective Data Objective Data Vital Signs: Vital Signs Temp Pulse Resp BP Pulse Ox O2 Del Method 97.5 F L 98 14 134/86 H 100 Room Air 11/27/24 05:00 11/27/24 05:00 11/27/24 05:00 11/27/24 05:00 11/27/24 05:00 11/27/24 05:00 Oxygen Delivery Method Room Air Weight: 244 lb 1 oz Body Mass Index (BMI) 39.4 Intake & Output: Intake and Output for Last 24 Hours 11/25/24 11/26/24 11/27/24 23:59 23:59 23:59 Intake Total 2049 1810 / 1950 330 / 330 Output Total 100 / 100 Balance 2049 1710 / 1850 330 / 330 Lab / Micro Data 11/27/24 04:16 11/27/24 04:16 Labs: Laboratory Results - last 24 hr 11/26/24 11:51: POC Glucose 202 H 11/26/24 17:49: POC Glucose 218 H 11/26/24 21:33: POC Glucose 185 H 11/27/24 04:16: WBC 12.8 H, RBC 4.18 L, Hgb 11.3 L, Hct 34.7 L, MCV 83.0, MCH 27.0, MCHC 32.6, RDW Std Deviation 42.2, RDW Coeff of John 13.8, Plt Count 354, MPV 9.6, Immature Gran % (Auto) 0.600, Neut % (Auto) 75.9 H, Lymph % (Auto) 18.1L, Bacon % (Auto) 5.2, Eos % (Auto) 0.0, Baso % (Auto) 0.2, Absolute Neuts (auto)9.7 H, Absolute Lymphs (auto) 2.31, Nucleated RBC % 0, Sodium 139, Potassium 4.1, Chloride 102, Carbon Dioxide 24.2, Anion Gap 13, BUN 16, Creatinine 1.07, Estim Creat Clear Calc 95.16, Est GFR (MDRD) Non-Af 71, BUN/Creatinine Ratio 15.0, Glucose 217 H, Calcium 7.9 11/27/24 06:47: POC Glucose 185 H Physical Exam GI GI Narrative: Abdomen- soft, generalized abdominal pain with palpation. Patient unable to staystill long enough to obtain bowel sounds Assessment & Plan Assessment/Plan (1) Acute proctitis: (2) Fecal impaction: (3) Abdominal pain: PLAN: Plan I am following this patient in conjunction with Dr. Welch. She will independently evaluate this patient. Labs reviewed. WBC is trending down. Today 12.8 Continue IV antibiotics Order urgent CT scan of ab/pel Keep patient NPO until after review Increase Protonix to IV BID We will continue to monitor this patient Charges/Coding Visit Charges Inpatient E&M: 24615 Subs Hosp L2 11/27/24 0853 <Electronically signed by Clare GRADY PA-C> Cosigner Signature (if applicable): CC: ~ Signed ADDENDUM by ESCOBAR Loo on 11/27/24 at [address] scan with Dr. Welch. CT ab/pel demonstrated possible sludge in the gallbladder, fatty liver, and circumferential wall thickening and inflammatory changes of the rectosigmoid suggestive of colitis. No stool burden is noted. Patient was placed back on regular diet. No CT findings to suggest surgical intervention at this time. Would recommend continued Miralax daily to assist with bowel movements. 11/27/24 1435<Electronically signed by Clare GRADY PA-C> Cosigner Signature (if applicable): cc: ~* Signed [facility] Work Phone: 1(739) 853-238605-19-2025 Progress note [facility] Medical Records Department [address] [place] [address] Progress Note - Hospitalist 11/27/24 0759 MR#: [id number] Acct: [id number] Name: GHISLAINE GIVENS Rep #:[id number] : 1990 34 From: Gale Lr DO PCP: Amy Solorzano Sara, [employer] SUPERVISOR-C Statu s:ADM IN Location: MS3 [id number] Reason for Visit Reason for Visit: Abdominal pain/constipation Subjective Subjective Patient reports she is having terrible abdominal pain today. States she had it yesterday. States she feels better in the shower. Does admit to marijuana use but states her last use was last Wednesday. She has had 2 CAT scans now. They both show proctitis. Repeat CAT scan today shows mild improvement and no further fecal impaction. Given this and the need to avoid recurrent constipation will discontinue morphine. Patient also with significant anxiety and has been on something for anxiety previouslybut unable to remember what this might be. Will start scheduled hydroxyzine. Recommend outpatient psychiatry follow-up after discharge. Objective Data Objective Data Vital Signs: Vital Signs Temp Pulse Resp BP Pulse Ox O2 Del Method 97.5 F L 98 14 134/86 H 100 Room Air 11/27/24 05:00 11/27/24 05:00 11/27/24 05:00 11/27/24 05:00 11/27/24 05:00 11/27/24 05:00 Oxygen Delivery Method Room Air Weight: 110.705 kg Body Mass Index (BMI) 39.4 Intake & Output: Intake and Output for Last 24 Hours 11/25/24 11/26/24 11/27/24 23:59 23:59 23:59 Intake Total 2049 1810 / 1950 330 / 330 Output Total 100 / 100 Balance 2049 1710 / 1850 330 / 330 Lab / Micro Data 11/27/24 04:16 11/27/24 04:16 Labs: Laboratory Results - last 24 hr 11/26/24 11:51: POC Glucose 202 H 11/26/24 17:49: POC Glucose 218 H 11/26/24 21:33: POC Glucose 185 H 11/27/24 04:16: WBC 12.8 H, RBC 4.18 L, Hgb 11.3 L, Hct 34.7 L, MCV 83.0, MCH 27.0, MCHC 32.6, RDW Std Deviation 42.2, RDW Coeff of John 13.8, Plt Count 354, MPV 9.6, Immature Gran % (Auto) 0.600, Neut % (Auto) 75.9 H, Lymph % (Auto) 18.1L, Bacon % (Auto) 5.2, Eos % (Auto) 0.0, Baso % (Auto) 0.2, Absolute Neuts (auto)9.7 H, Absolute Lymphs (auto) 2.31, Nucleated RBC % 0, Sodium 139, Potassium 4.1, Chloride 102, Carbon Dioxide 24.2, Anion Gap 13, BUN 16, Creatinine 1.07, Estim Creat Clear Calc 95.16, Est GFR (MDRD) Non-Af 71, BUN/Creatinine Ratio 15.0, Glucose 217 H, Calcium 7.9 11/27/24 06:47: POC Glucose 185 H Radiography Diagnostic Testing: Radiology Impression KUB X-Ray 11/26/24 08:10 IMPRESSION: Constipation with suggestion of fecal impaction of the rectum. Reading Location: [facility] Physical Exam Const alert, oriented x3 and well nourished; Negative for no apparent distress, average body habitus or healthy appearing Constitutional Narrative: Obese, young middle-aged, white female, lying in bed appears markedly uncomfortable but not toxic HEENT head/scalp atraumatic and moist oral mucous membranes Head and Scalp: normocephalic Resp normal respiratory effort, no retractions, no use of accessory muscles and clearto auscultation bilaterally Auscultation: Negative for rales, rhonchi or wheezes Cardio regular rate, regular rhythm, S1 normal heart sound, S2 normal heart sound, no murmurs, no rub, no gallops and no clicks GI normal to inspection, nondistended, normoactive bowel sounds and soft to palpation GI Narrative: Diffusely tender Extremity no clubbing, cyanosis or edema Extremity Narrative: 2+ pedal and radial pulses Neuro oriented x3, moves all extremities and no focal motor deficits Psych Psych Narrative: Affect is flat, markedly anxious Assessment & Plan Assessment/Plan (1) Colitis: (2) Acute proctitis: (3) Fecal impaction: (4) Nausea & vomiting: PLAN: Plan Abdominal pain/nausea vomiting - Given severe abdominal pain repeat CT was performed today and is unremarkable compared to previous - Start scopolamine patch - Continue as needed Zofran and Phenergan - Discontinue IV morphine and Toradol - Continue oxycodone but would like to avoid to avoid further constipation - General Surgery is following-appreciate assistance - Patient does report marijuana use and that her symptoms get better when she isin a hot shower -may have cyclic vomiting syndrome related to marijuana use--> highly recommend cessation discussed with patient Acute proctitis/colitis - [place] to be stercoral colitis from severe constipation - Fecal impaction has been resolved - Continue Zosyn - Repeat CT shows improvement in colitis but not resolution - Will need total 14-day antibiotic regimen Fecal impaction - Resolved Leukocytosis - Trending down nicely - 27,000 on admission and now down to 12.8 - Continue IV antibiotics as ordered - Complete total 14-day antibiotic course as noted above DM-2 with hyperglycemia - Her home insulin was held - patient is on basal insulin 20 units twice daily - Restart basal insulin 20 units daily -Reduced dosing due to the fact that it is unclear whether or not she will tolerate p.o. diet much - Continue to hold Trulicity - Continue SSI - Carb controlled diet as ordered and patient tolerates Anxiety - I do feel it may be contributing some to her symptoms then her for her need ofself-medicating with THC - Start scheduled hydroxyzine Insomnia - Continue home trazodone Asthma - Continue on as needed albuterol Obesity - BMI 39.4 - Recommend weight loss - Complicates treatment, prognosis, outcomes DVT prophylaxis - Continue home enoxaparin CODE STATUS - Full code Charges/Coding Visit Charges Inpatient E&M: 84470 Subs Hosp L2 11/27/24 4219 Cosigner Signature (if applicable): CC: ~ Signed [facility]05-19-2025 Progress note [facility] Medical Records Department [address] [place] [address] Progress Note - Surgery 11/27/24 0845 MR#: [id number] Acct: [id number] Name: GHISLAINE GIVENS Rep #:[id number] : 1990 34 From: Clare GRADY PA-C PCP: BROOKLYN Warren, [employer] SUPERVISOR-C Statu s:ADM IN Location: [facility] [id number] Subjective Subjective Patient evaluated rolling restlessly in the bed with abdominal pain. She notes increased abdominal pain over night. She states every time she is awake she is nasueated. She notes spitting up clear fluid. She notes small amount of loose stools over night. Objective Data Objective Data Vital Signs: Vital Signs Temp Pulse Resp BP Pulse Ox O2 Del Method 97.5 F L 98 14 134/86 H 100 Room Air 11/27/24 05:00 11/27/24 05:00 11/27/24 05:00 11/27/24 05:00 11/27/24 05:00 11/27/24 05:00 Oxygen Delivery Method Room Air Weight: 244 lb 1 oz Body Mass Index (BMI) 39.4 Intake & Output: Intake and Output for Last 24 Hours 11/25/24 11/26/24 11/27/24 23:59 23:59 23:59 Intake Total 2049 1810 / 1950 330 / 330 Output Total 100 / 100 Balance 2049 1710 / 1850 330 / 330 Lab / Micro Data 11/27/24 04:16 11/27/24 04:16 Labs: Laboratory Results - last 24 hr 11/26/24 11:51: POC Glucose 202 H 11/26/24 17:49: POC Glucose 218 H 11/26/24 21:33: POC Glucose 185 H 11/27/24 04:16: WBC 12.8 H, RBC 4.18 L, Hgb 11.3 L, Hct 34.7 L, MCV 83.0, MCH 27.0, MCHC 32.6, RDW Std Deviation 42.2, RDW Coeff of John 13.8, Plt Count 354, MPV 9.6, Immature Gran % (Auto) 0.600, Neut % (Auto) 75.9 H, Lymph % (Auto) 18.1L, Bacon % (Auto) 5.2, Eos % (Auto) 0.0, Baso % (Auto) 0.2, Absolute Neuts (auto)9.7 H, Absolute Lymphs (auto) 2.31, Nucleated RBC % 0, Sodium 139, Potassium 4.1, Chloride 102, Carbon Dioxide 24.2, Anion Gap 13, BUN 16, Creatinine 1.07, Estim Creat Clear Calc 95.16, Est GFR (MDRD) Non-Af 71, BUN/Creatinine Ratio 15.0, Glucose 217 H, Calcium 7.9 11/27/24 06:47: POC Glucose 185 H Physical Exam GI GI Narrative: Abdomen- soft, generalized abdominal pain with palpation. Patient unable to staystill long enough to obtain bowel sounds Assessment & Plan Assessment/Plan (1) Acute proctitis: (2) Fecal impaction: (3) Abdominal pain: PLAN: Plan I am following this patient in conjunction with Dr. Welch. She will independently evaluate this patient. Labs reviewed. WBC is trending down. Today 12.8 Continue IV antibiotics Order urgent CT scan of ab/pel Keep patient NPO until after review Increase Protonix to IV BID We will continue to monitor this patient Charges/Coding Visit Charges Inpatient E&M: 16588 Subs Hosp L2 11/27/24 0853 Cosigner Signature (if applicable): CC: ~ Signed ADDENDUM by ESCOBAR Loo on 11/27/24 at [address] scan with Dr. Welch. CT ab/pel demonstrated possible sludge in the gallbladder, fatty liver, and circumferential wall thickening and inflammatory changes of the rectosigmoid suggestiveof colitis. No stool burden is noted. Patient was placed back on regular diet. No CT findings to suggest surgical intervention at this time. Would recommend continued Miralax daily to assist with bowel movements. 11/27/24 1435 Cosigner Signature (if applicable): cc: ~* Signed [facility]05-19-2025 Radiology Diagnostic study note [facility] Imaging Services [address] [place] [address] Abdomen/Pelvis WITH Contrast MR#: [id number] Acct: [id number] Name: GHISLAINE GIVENS Rep #: [id number] : 1990 F 34 From: Fortino Sadler MD PCP: Amy Solorzano, BROOKLYN, [employer] SUPERVISOR-C Status: ADM IN Study:Abdomen/Pelvis WITH Contrast Date of Ex am: 11/27/24 Exam# [id number] Ordering Dr: Clare Loo PA-C PROCEDURE: ABDOMEN/PELVIS WITH CONTRAST 11/27/2024 REASON FOR EXAM: ABDOMINAL PAIN Constipation TECHNIQUE: Abdomen and pelvis CT with intravenous contrast. Coronal and Sagittal reconstruction series were provided. PATIENT PREPARATION: Per protocol ORAL CONTRAST TYPE: Given AMOUNT: 200 mL CONTRAST: Isovue-300 VOLUME: 100 mL One or more dose reduction techniques were used (e.g., Automated exposure control, adjustment of the mA and/or kV according to patient size, use of iterative reconstruction technique. RADIATION DOSE SUMMARY: CTDlvol: 12 mGy DLP: 1384.33 mGycm COMPARISON: Prior study dated November 25, 2024.1 FINDINGS: Lung bases: Unremarkable Liver: Diffuse fatty infiltration. Borderline hepatomegaly. Gallbladder: Density seen within the gallbladder suggestive of possible sludge versus tiny gallstones. Spleen: Normal size. Pancreas: Normal size without evidence of mass surrounding inflammation or ductal dilation. Adrenals: Unremarkable Kidneys: Normal renal sizes. No hydronephrosis. Bladder: The bladder is empty. Reproductive Organs: Normal uterine size and contour. Ovaries are unremarkable. Small follicle is seen in the left ovary. Bowel: There is evidence of circumferential wall thickening and pericolonic inflammatory change in the rectosigmoid colon suggestive of colitis. Increased markings in the surrounding perirectal fat. Appendix: Unremarkable Lymph nodes: Unremarkable. Vasculature: The abdominal aorta and IVC are normal. Peritoneum / Retroperitoneum: Unremarkable Bones: Unremarkable CT/Abdomen/Pelvis WITH Contrast IMPRESSION: Fatty infiltration of the liver. Sludge is seen in the gallbladder lumen. Findings suggestive of colitis involving the rectosigmoid colon. There has beenmild improvement as compared to prior study. Reading Location: [facility] CC: ESCOBAR Loo; Sara Solorzano ~ Hearing Aid Assistant: Signed [facility]05-18-2025 Progress note Author Brenda Rao [facility] Note Date/Time November 26, 2024 9:20a m [facility] Medical Records Department [address] [place] [address] Progress Note 11/26/24 0909 MR#: [id number] Acct: [id number] Name: GHISLAINE GIVENS Rep #:[id number] : 1990 34 From: Brenda Rao MD PCP: Amy Solorzano, Sara, [employer] SUPERVISOR-C Statu s:ADM IN Location: [facility]3 [id number] Subjective Subjective Patient seen and examined. She still complains of nausea and vomiting. She hadseveral bowel movements overnight. Review of systems otherwise negative. She has remained hemodynamically stable. Objective Data Objective Data Vital Signs: Vital Signs Temp Pulse Resp BP Pulse Ox O2 Del Method 97.6 F L 72 18 106/73 99 Room Air 11/26/24 03:48 11/26/24 03:48 11/26/24 03:48 11/26/24 03:48 11/26/24 03:48 11/26/24 03:48 Oxygen Delivery Method Room Air Weight: 244 lb 1 oz Body Mass Index (BMI) 39.4 Intake & Output: Intake and Output for Last 24 Hours 11/24/24 11/25/24 11/26/24 23:59 23:59 23:59 Intake Total 2049 1050 / 1050 Balance 2049 1050 / 1050 Lab / Micro Data 11/26/24 04:24 11/26/24 04:24 Labs: Laboratory Results - last 24 hr 11/25/24 09:40: WBC 27.0 H, RBC 5.21, Hgb 14.1, Hct 42.3, MCV 81.2, MCH 27.1, MCHC 33.3, RDW Std Deviation 41.1, RDW Coeff of John 14.2, Plt Count 400, MPV 9.4, Immature Gran % (Auto) 0.700, Neut % (Auto) 79.5 H, Lymph % (Auto) 11.4 L, Bacon % (Auto) 8.0, Eos % (Auto) 0.1, Baso % (Auto) 0.3, Absolute Neuts (auto) 21.5 H, Absolute Lymphs (auto) 3.09, Nucleated RBC % 0, Platelet Estimate A, Sodium 135, Potassium 4.0, Chloride 97 L, Carbon Dioxide 21.3, Anion Gap 17 H, BUN 19, Creatinine 1.20, Estim Creat Clear Calc 86.69, Est GFR (MDRD) Non-Af 62,BUN/Creatinine Ratio 15.9, Glucose 203 H, Calcium 9.6, Serum , Qual NEGATIVE 11/25/24 11:20: Urine Color Yellow, Urine Clarity Cloudy, Urine pH 6.0, Ur Specific [place] 1.025, Urine Protein 30 H, Urine Glucose (UA) Normal, Urine Ketones 5 H, Urine Occult Blood 25 H, Urine Nitrite Negative, Urine Bilirubin 1 H, Urine Urobilinogen 1 H, Ur Leukocyte Esterase Negative, Urine RBC 0-5 SEEN, Urine WBC 0-5 SEEN, Ur Squamous Epith Cells 0-5 SEEN, Amorphous Sediment 2+ URATE, Urine Bacteria 0 SEEN, Hyaline Casts 0-5 SEEN, Urine Mucus 0 SEEN 11/25/24 12:16: Lactic Acid 1.5 11/25/24 17:53: POC Glucose 139 H 11/26/24 00:02: POC Glucose 166 H 11/26/24 04:24: WBC 17.6 H, RBC 4.08 L, Hgb 11.0 L, Hct 34.2 L, MCV 83.8, MCH 27.0, MCHC 32.2, RDW Std Deviation 43.0, RDW Coeff of John 13.9, Plt Count 308, MPV 9.8, Immature Gran % (Auto) 0.600, Neut % (Auto) 73.4 H, Lymph % (Auto) 19.4, Bacon % (Auto) 6.2, Eos % (Auto) 0.2, Baso % (Auto) 0.2, Absolute Neuts (auto) 12.9 H, Absolute Lymphs (auto) 3.42, Nucleated RBC % 0, Sodium 137, Potassium 4.0, Chloride 104, Carbon Dioxide 22.6, Anion Gap 11, BUN 17, Creatinine 1.16, Estim Creat Clear Calc 87.78, Est GFR (MDRD) Non-Af 64, BUN/Creatinine Ratio 15.0, Glucose 148 H, Calcium 7.8 11/26/24 06:02: POC Glucose 160 H Radiography Diagnostic Testing: Radiology Impression Acute Abdomen Series 11/25/24 09:55 IMPRESSION: Fecal retention in the colon consistent with constipation. Reading Location: [facility] Abdomen/Pelvis CT 11/25/24 11:32 IMPRESSION: 1. Fecal impaction with apparent wall thickening of the distal colon and rectumsuggesting proctitis and colitis. Clinical correlation is recommended. 2. Hepatomegaly with fatty infiltration. Reading Location: [facility] KUB X-Ray 11/26/24 08:10 IMPRESSION: Constipation with suggestion of fecal impaction of the rectum. Reading Location: [facility] Physical Exam Const alert and oriented x3 Constitutional Narrative: Class II obesity. Uncomfortable due to the nausea and vomiting General Appearance: cooperative HEENT normocephalic, head/scalp atraumatic, hearing grossly normal bilaterally, moist oral mucous membranes and oropharynx normal Eyes PERRL, EOMs intact bilaterally and conjunctivae normal Neck no lymphadenopathy, supple and no JVD Resp normal respiratory effort, normal air movement, no retractions, no use of accessory muscles and clear to auscultation bilaterally Cardio regular rate, regular rhythm, S1 normal heart sound, S2 normal heart sound and no murmurs GI normal to inspection, nondistended, normoactive bowel sounds, soft to palpation and non-tender Extremity normal to inspection, full ROM and no clubbing, cyanosis or edema Neuro oriented x3, CN's II-XII intact bilaterally, moves all extremities and no focal motor deficits Sensorium / Orientation: awake and alert Motor Exam: strength 5/5 throughout Psych thought process normal, cooperative and affect normal Appearance: appropriate Assessment & Plan Assessment/Plan (1) Colitis: (2) Acute proctitis: (3) Fecal impaction: PLAN: Plan # Stercoral proctocolitis with overflow diarrhea in the setting of severe constipation with fecal impaction * Had enemas with laxative yesterday. She had several bowel movements. * Complaining of nausea and vomiting today. At time of my review patient was having incessant retching. * General surgery on board. Had KUB this morning which showed constipation with suggestion of fecal impaction of the rectum. * Continue keeping n.p.o. perform ice chips. * On IV Zosyn for the colitis. General surgery on board. * WBC today 17.6 down from 27 yesterday. * #Type 2 diabetes mellitus * On dulaglutide and Lantus 20 units twice daily. Hold Lantus and dulaglutide. Insulin sliding scale. * Accu-Cheks every 6 hourly as patient is NPO. * #Class II obesity: BMi is 39.4. Complicates acute care, expected recovery and prognosis. DVT prophylaxis: Lovenox CODE STATUS: Full code Charges/Coding Visit Charges Inpatient E&M: 40835 Subs Hosp L2 11/26/24 0920 <Electronically signed by Brenda Rao MD> Brenda Rao MD Cosigner Signature (if applicable): CC: ~ Signed [facility] Work Phone: 1(909) 716-188305-18-2025 History and physical note Author Brenda [facility] Note Date/Time November 26, 2024 7:54a m [facility] Medical Records Department [address] [place] [address] H&P Exam - Hospitalist 11/25/24 1324 MR#: [id number] Acct: [id number] Name: GHISLAINE GIVENS Rep #:[id number] : 1990 34 From: Brenda Rao MD PCP: BROOKLYN Warren, [employer] SUPERVISOR-C Statu s:ADM IN Location: [place] [address] HPI - General General Date of Admission: 11/25/24 Date of Service: 11/25/24 Chief Complaint: abdominal pain, constipation HPI Narrative GHISLAINE GIVENS, is a 34 F with a PMH as outlined including diabetes who presentsvia the ED on 11/25/2024 with a complaint of constipation. She has struggled withconstipation over the years and takes laxatives. She says 3 days prior to admission, she took her laxative due to constipation. She subsequently started having diarrhea. She also had cramping and was worried that she may have fecal impaction. SHe also complained of nausea and vomiting. She had no other complaints. Review of symptoms otherwise negative. Vitals in the ED were blood pressure of 123/85, pulse rate of 91 and respiratoryrate of 16. Pulse ox was 95% on room air. CBC showed hemoglobin of 14.1 with WBC of 27 and platelets of 400. Chemistry was largely unremarkable. Lactic acid was 1.5. Urinalysis showed 0 bacteria and negative leukocyte esterase. She initially had an abdominal series x-ray which showed fecal retention in the colon consistent with constipation. She then had CT of the abdomen and pelvis which showed fecal impaction with apparent wall thickening of the distal colon and rectum suggesting proctitis and colitis as well as hepatomegaly with fatty infiltration. She has been admitted to be managed for proctocolitis, likely stercoral colitis in the setting of severe constipation with likely overflow diarrhea. [facility] Medical History (Updated 11/25/24 @ 15:05 by Alejandrina Mayorga) GERD (gastroesophageal reflux disease) Wears glasses History of MRSA infection Borderline personality disorder Alcohol use Insulin dependent diabetes mellitus Dietary restriction Heartburn Smoker Shortness of breath on exertion Leg cramps Type 2 diabetes mellitus with peripheral neuropathy Neuropathy, diabetic Elevated serum creatinine Failure of outpatient treatment Nausea and vomiting Diabetes mellitus with diabetic polyneuropathy Type 2 diabetes mellitus with foot ulcer Anxiety Depression Constipation Asthma Diabetes Home Medications ?Medication ?Instructions ?Recorded ?Last Taken ?Type insulin glargine 100 unit/mL (3 20 unit subcut BID doreen betes 08/12/22 11/25/24 History mL) subcutaneous pen (Lantus Solostar U-100 Insulin) trazodone 300 mg tablet 200 mg PO QHS PRN insomnia 0 07/16/23 Unknown History albuterol sulfate 90 mcg/actuation 2 puff inhalation Q 4H PRN 11/25/24 Unknown History aerosol inhaler shortness of breath or wheez ing dulaglutide 4.5 mg/0.5 mL 4.5 mg subcut SA 11/25/24 History subcutaneous pen injector (Trulicity) Allergy/AdvReac Type Severity Reaction Status Date / Time No Known Allergies Allergy Verified 11/25/24 08:58 Family History Other Bleeding disorder Cancer Diabetes Hypertension Surgical History Hx of foot surgery Hx of foot surgery Social History Smoking Status: Current every day smoker tobacco type: cigarettes alcohol intake: never substance use type: does not use what type of physical activity do you participate in: none ROS Constitutional Constitutional: Reports fatigue, malaise and weakness; Denies anorexia, chills or fever(s) Eyes Eyes: Denies change in vision ENT HEENT: Denies dysphagia, headache(s) or sore throat Cardiovascular Cardiovascular: Denies chest pain, dyspnea on exertion, edema, lightheadedness, orthopnea or palpitations Respiratory/Chest Respiratory/Chest: Denies cough, dyspnea, productive cough, shortness of breath at rest or shortness of breath with exertion Gastrointestinal Gastrointestinal: Reports abdominal pain, constipation, diarrhea, nausea and vomiting; Denies dyspepsia, hematemesis, hematochezia, loose stools or melena Genitourinary Genitourinary: Denies burning urination or dysuria Musculoskeletal Musculoskeletal: Denies arthralgias Neurologic Neurologic: Denies confusion, dizziness, focal weakness or headache(s) Psychiatric Psychiatric: Denies anxiety or depression Vital Signs Vital Signs Vital Signs: 11/25/24 08:48 11/25/24 09:50 11/25/24 10:00 Temperature 96.8 F L 98.0 F 97.9 F Temperature Source Temporal Oral Temporal Pulse Rate 112 H 103 H 94 Respiratory Rate 20 H 19 H 17 Blood Pressure 121/91 H 130/91 H 122/91 H Blood Pressure Mean 101 104 101 Pulse Ox 99 96 92 Oxygen Delivery Method Room Air Room Air Room Air 11/25/24 11:00 11/25/24 12:00 Temperature 97.6 F L Temperature Source Temporal Pulse Rate 85 91 Respiratory Rate 16 Blood Pressure 124/90 H 123/85 H Blood Pressure Mean 101 97 Pulse Ox 94 95 Oxygen Delivery Method Room Air Weight Weight: 253 lb 9.6 oz Body Mass Index (BMI) 40.9 Physical Exam Const alert, oriented x3 and no apparent distress Constitutional Narrative: Class III obesity General Appearance: cooperative HEENT normocephalic, head/scalp atraumatic, hearing grossly normal bilaterally, moist oral mucous membranes and oropharynx normal Mouth: oral and palatal mucosa normal Eyes PERRL, EOMs intact bilaterally and conjunctivae normal Neck no lymphadenopathy, supple and no JVD Resp normal respiratory effort, no retractions, no use of accessory muscles and clearto auscultation bilaterally Cardio regular rate, regular rhythm, S1 normal heart sound, S2 normal heart sound and no murmurs GI normal to inspection, nondistended, normoactive bowel sounds GI Narrative: Moderate generalized abdominal tenderness with no guarding or rebound tenderness. Extremity normal to inspection, full ROM and no clubbing, cyanosis or edema Neuro oriented x3, CN's II-XII intact bilaterally, moves all extremities and no focal motor deficits Sensorium / Orientation: awake and alert Motor Exam: strength 5/5 throughout Psych affect normal Results Lab / Micro Data 11/26/24 04:24 11/26/24 04:24 Labs: Laboratory Results - last 24 hr 11/25/24 09:40: WBC 27.0 H, RBC 5.21, Hgb 14.1, Hct 42.3, MCV 81.2, MCH 27.1, MCHC 33.3, RDW Std Deviation 41.1, RDW Coeff of John 14.2, Plt Count 400, MPV 9.4, Immature Gran % (Auto) 0.700, Neut % (Auto) 79.5 H, Lymph % (Auto) 11.4 L, Bacon % (Auto) 8.0, Eos % (Auto) 0.1, Baso % (Auto) 0.3, Absolute Neuts (auto) 21.5 H, Absolute Lymphs (auto) 3.09, Nucleated RBC % 0, Platelet Estimate A, Sodium 135, Potassium 4.0, Chloride 97 L, Carbon Dioxide 21.3, Anion Gap 17 H, BUN 19, Creatinine 1.20, Estim Creat Clear Calc 86.69, Est GFR (MDRD) Non-Af 62,BUN/Creatinine Ratio 15.9, Glucose 203 H, Calcium 9.6, Serum , Qual NEGATIVE 11/25/24 11:20: Urine Color Yellow, Urine Clarity Cloudy, Urine pH 6.0, Ur Specific [place] 1.025, Urine Protein 30 H, Urine Glucose (UA) Normal, Urine Ketones 5 H, Urine Occult Blood 25 H, Urine Nitrite Negative, Urine Bilirubin 1 H, Urine Urobilinogen 1 H, Ur Leukocyte Esterase Negative, Urine RBC 0-5 SEEN, Urine WBC 0-5 SEEN, Ur Squamous Epith Cells 0-5 SEEN, Amorphous Sediment 2+ URATE, Urine Bacteria 0 SEEN, Hyaline Casts 0-5 SEEN, Urine Mucus 0 SEEN 11/25/24 12:16: Lactic Acid 1.5 Imaging Radiology Impression Acute Abdomen Series 11/25/24 09:55 IMPRESSION: Fecal retention in the colon consistent with constipation. Reading Location: [facility] Abdomen/Pelvis CT 11/25/24 11:32 IMPRESSION: 1. Fecal impaction with apparent wall thickening of the distal colon and rectumsuggesting proctitis and colitis. Clinical correlation is recommended. 2. Hepatomegaly with fatty infiltration. Reading Location: [facility] Assessment & Plan Assessment/Plan (1) Colitis: (2) Acute proctitis: (3) Fecal impaction: PLAN: Plan # Stercoral proctocolitis with overflow diarrhea in the setting of severe constipation with fecal impaction * Admit to [facility]. Admitted with a complaint of abdominal pain. She does have a history of severe constipation. She took her laxatives but subsequently started having diarrhea. * Abdominal series x-ray showed fecal retention in the colon consistent with constipation. * CT of the abdomen and pelvis showed fecal impaction with apparent wall thickening of the distal colon and rectum suggesting proctitis and colitis. It also showed hepatomegaly with fatty infiltration * Keep n.p.o. for now. Consult general surgery * Placed on lactulose and Dulcolax to help with constipation. May also need enema if all these do not work. * #Type 2 diabetes mellitus * On dulaglutide and Lantus 20 units twice daily. Hold Lantus and dulaglutide. Insulin sliding scale. Accu-Cheks ACHS. * #Class II obesity: BMi is 39.4. Complicates acute care, expected recovery and prognosis. DVT prophylaxis: Lovenox CODE STATUS: Full code Charges/Coding Visit Charges Inpatient E&M: 44509 Init Hosp L2 11/26/24 0754 <Electronically signed by Brenda Rao MD> Cosigner Signature (if applicable): CC: VSSara SHIPFITTERS SUPERVISORKaykay Solorzano; Dr. Brenda Rao MD~ Signed [facility] Work Phone: [phone] Consult note Author Annalise Welch [facility] Note Date/Time November 26, 2024 7:47a m [facility] Medical Records Department [address] [place] [address] Consultation - Surgical 11/25/242050 MR#: [id number] Acct: [id number] Name: GHISLAINE GIVENS Rep #:[id number] : 1990 34 From: Annalise Welch MD PCP: Amy Solorzano, Sara, [employer]TER[employer] SUPERVISOR-C Statu s:ADM IN Location: [place] [id number] Assessment & Plan Assessment/Plan (1) Fecal impaction: (2) Acute proctitis: PLAN: Plan Discussed with patient would recommend additional enema to help soften the bowelof stool in the rectum. Along with additional ones after that. Continue IV Zosyn Discussed with patient plan to DC with laxatives. Annalise Welch M.D. Pager: [phone] [facility] [address] [place] [address], [facility], [address] [place] [address] Office: [phone] HPI Consult Data Date of Consult: 11/26/24 HPI Narrative Reason for Consultation: Fecal impaction, acute proctitis HPI Narrative: GHISLAINE GIVENS, is a 34 F who presents to the ER due to constipation. Patient has had issues with constipation for years. Patient states that she did take her laxative for constipation 3 days prior to coming in however she was only having diarrhea and felt that there were some harder stool she was unable to getout. Also complained of some nausea and vomiting. CT abdomen pelvis showed fecal impaction with wall thickening of the distal colon and rectum suggesting proctitis/colitis. Patient white blood count was 27 patient was started on Zosyn IV. Patient did have an enema in the ER and did have some results with it. [facility] Medical History (Updated 11/25/24 @ 15:05 by Alejandrina Mayorga) GERD (gastroesophageal reflux disease) Wears glasses History of MRSA infection Borderline personality disorder Alcohol use Insulin dependent diabetes mellitus Dietary restriction Heartburn Smoker Shortness of breath on exertion Leg cramps Type 2 diabetes mellitus with peripheral neuropathy Neuropathy, diabetic Elevated serum creatinine Failure of outpatient treatment Nausea and vomiting Diabetes mellitus with diabetic polyneuropathy Type 2 diabetes mellitus with foot ulcer Anxiety Depression Constipation Asthma Diabetes Home Medications ?Medication ?Instructions ?Recorded ?Last Taken ?Type insulin glargine 100 unit/mL (3 20 unit subcut BID doreen betes 08/12/22 11/25/24 History mL) subcutaneous pen (Lantus Solostar U-100 Insulin) trazodone 300 mg tablet 200 mg PO QHS PRN insomnia 0 07/16/23 Unknown History albuterol sulfate 90 mcg/actuation 2 puff inhalation Q 4H PRN 11/25/24 Unknown History aerosol inhaler shortness of breath or wheez ing dulaglutide 4.5 mg/0.5 mL 4.5 mg subcut SA 11/25/24 History subcutaneous pen injector (Trulicity) Allergy/AdvReac Type Severity Reaction Status Date / Time No Known Allergies Allergy Verified 11/25/24 08:58 Family History Other Bleeding disorder Cancer Diabetes Hypertension Surgical History Hx of foot surgery Hx of foot surgery Social History Smoking Status: Current every day smoker tobacco type: cigarettes alcohol intake: never substance use type: does not use what type of physical activity do you participate in: none ROS Constitutional Constitutional: Denies fever(s) Eyes Eyes: Reports blurry vision ENT HEENT: Denies dysphagia Cardiovascular Cardiovascular: Denies chest pain Respiratory/Chest Respiratory/Chest: Denies cough Gastrointestinal Gastrointestinal: Reports constipation, diarrhea, nausea and vomiting; Denies abdominal pain or hematochezia Genitourinary Genitourinary: Denies dysuria Musculoskeletal Musculoskeletal: Denies joint swelling Integumentary Integumentary: Denies jaundice Neurologic Neurologic: Denies focal weakness Hematologic/Lymphatic Hematologic/Lymphatic: Denies easy bleeding Physical Exam Const alert, oriented x3 and no apparent distress HEENT normocephalic and head/scalp atraumatic Resp normal respiratory effort Cardio regular rate GI soft to palpation, non-tender and non-distended GI Narrative: DEMETRICE hard stool with tip finger, no gross blood Palpation: Negative for guarding Extremity no clubbing, cyanosis or edema Neuro CN's II-XII intact bilaterally Psych mental status grossly normal Lab / Micro Data 11/26/24 04:24 11/26/24 04:24 Labs: Laboratory Results - last 24 hr 11/25/24 09:40: WBC 27.0 H, RBC 5.21, Hgb 14.1, Hct 42.3, MCV 81.2, MCH 27.1, MCHC 33.3, RDW Std Deviation 41.1, RDW Coeff of John 14.2, Plt Count 400, MPV 9.4, Immature Gran % (Auto) 0.700, Neut % (Auto) 79.5 H, Lymph % (Auto) 11.4 L, Bacon % (Auto) 8.0, Eos % (Auto) 0.1, Baso % (Auto) 0.3, Absolute Neuts (auto) 21.5 H, Absolute Lymphs (auto) 3.09, Nucleated RBC % 0, Platelet Estimate A, Sodium 135, Potassium 4.0, Chloride 97 L, Carbon Dioxide 21.3, Anion Gap 17 H, BUN 19, Creatinine 1.20, Estim Creat Clear Calc 86.69, Est GFR (MDRD) Non-Af 62,BUN/Creatinine Ratio 15.9, Glucose 203 H, Calcium 9.6, Serum , Qual NEGATIVE 11/25/24 11:20: Urine Color Yellow, Urine Clarity Cloudy, Urine pH 6.0, Ur Specific [place] 1.025, Urine Protein 30 H, Urine Glucose (UA) Normal, Urine Ketones 5 H, Urine Occult Blood 25 H, Urine Nitrite Negative, Urine Bilirubin 1 H, Urine Urobilinogen 1 H, Ur Leukocyte Esterase Negative, Urine RBC 0-5 SEEN, Urine WBC 0-5 SEEN, Ur Squamous Epith Cells 0-5 SEEN, Amorphous Sediment 2+ URATE, Urine Bacteria 0 SEEN, Hyaline Casts 0-5 SEEN, Urine Mucus 0 SEEN 11/25/24 12:16: Lactic Acid 1.5 11/25/24 17:53: POC Glucose 139 H Imaging Radiology Impression Acute Abdomen Series 11/25/24 09:55 IMPRESSION: Fecal retention in the colon consistent with constipation. Reading Location: [facility] Abdomen/Pelvis CT 11/25/24 11:32 IMPRESSION: 1. Fecal impaction with apparent wall thickening of the distal colon and rectumsuggesting proctitis and colitis. Clinical correlation is recommended. 2. Hepatomegaly with fatty infiltration. Reading Location: [facility] Charges/Coding Visit Charges Inpatient E&M: 66203 Init Hosp L3 11/26/24 0747 <Electronically signed by Annalise Welch MD> Cosigner Signature (if applicable): CC: BROOKLYN [employer]FITTER[employer] SUPERVISOR-C Amy Solorzano~ Signed [facility] Work Phone: [phone]) [phone] Progress note Author Annalise [facility] Note Date/Time November 26, 2024 7:47a m [facility] Medical Records Department [address] [facility] [place] [address] Progress Note - Surgery 11/26/24 0741 MR#: [id number] Acct: [id number] Name: GHISLAINE GIVENS Rep #:[id number] : 1990 34 From: Annalise Welch MD PCP: BROOKLYN Warren, SHIPFITTERS SUPERVISORKaykay Statu s:ADM IN Location: MS3 [id number] Subjective Subjective Patient states she did have results with the enema did refuse additional enemas last night. Patient does states she has some bleeding with her stool. Patient white blood count is down to 17 from 27 Objective Data Objective Data Vital Signs: Vital Signs Temp Pulse Resp BP Pulse Ox O2 Del Method 97.6 F L 72 18 106/73 99 Room Air 11/26/24 03:48 11/26/24 03:48 11/26/24 03:48 11/26/24 03:48 11/26/24 03:48 11/26/24 03:48 Oxygen Delivery Method Room Air Weight: 244 lb 1 oz Body Mass Index (BMI) 39.4 Intake & Output: Intake and Output for Last 24 Hours 11/24/24 11/25/24 11/26/24 23:59 23:59 23:59 Intake Total 2049 50 / 50 Balance 2049 50 / 50 Lab / Micro Data 11/26/24 04:24 11/26/24 04:24 Labs: Laboratory Results - last 24 hr 11/25/24 09:40: WBC 27.0 H, RBC 5.21, Hgb 14.1, Hct 42.3, MCV 81.2, MCH 27.1, MCHC 33.3, RDW Std Deviation 41.1, RDW Coeff of John 14.2, Plt Count 400, MPV 9.4, Immature Gran % (Auto) 0.700, Neut % (Auto) 79.5 H, Lymph % (Auto) 11.4 L, Bacon % (Auto) 8.0, Eos % (Auto) 0.1, Baso % (Auto) 0.3, Absolute Neuts (auto) 21.5 H, Absolute Lymphs (auto) 3.09, Nucleated RBC % 0, Platelet Estimate A, Sodium 135, Potassium 4.0, Chloride 97 L, Carbon Dioxide 21.3, Anion Gap 17 H, BUN 19, Creatinine 1.20, Estim Creat Clear Calc 86.69, Est GFR (MDRD) Non-Af 62,BUN/Creatinine Ratio 15.9, Glucose 203 H, Calcium 9.6, Serum , Qual NEGATIVE 11/25/24 11:20: Urine Color Yellow, Urine Clarity Cloudy, Urine pH 6.0, Ur Specific [place] 1.025, Urine Protein 30 H, Urine Glucose (UA) Normal, Urine Ketones 5 H, Urine Occult Blood 25 H, Urine Nitrite Negative, Urine Bilirubin 1 H, Urine Urobilinogen 1 H, Ur Leukocyte Esterase Negative, Urine RBC 0-5 SEEN, Urine WBC 0-5 SEEN, Ur Squamous Epith Cells 0-5 SEEN, Amorphous Sediment 2+ URATE, Urine Bacteria 0 SEEN, Hyaline Casts 0-5 SEEN, Urine Mucus 0 SEEN 11/25/24 12:16: Lactic Acid 1.5 11/25/24 17:53: POC Glucose 139 H 11/26/24 00:02: POC Glucose 166 H 11/26/24 04:24: WBC 17.6 H, RBC 4.08 L, Hgb 11.0 L, Hct 34.2 L, MCV 83.8, MCH 27.0, MCHC 32.2, RDW Std Deviation 43.0, RDW Coeff of John 13.9, Plt Count 308, MPV 9.8, Immature Gran % (Auto) 0.600, Neut % (Auto) 73.4 H, Lymph % (Auto) 19.4, Bacon % (Auto) 6.2, Eos % (Auto) 0.2, Baso % (Auto) 0.2, Absolute Neuts (auto) 12.9 H, Absolute Lymphs (auto) 3.42, Nucleated RBC % 0, Sodium 137, Potassium 4.0, Chloride 104, Carbon Dioxide 22.6, Anion Gap 11, BUN 17, Creatinine 1.16, Estim Creat Clear Calc 87.78, Est GFR (MDRD) Non-Af 64, BUN/Creatinine Ratio 15.0, Glucose 148 H, Calcium 7.8 11/26/24 06:02: POC Glucose 160 H Radiography Diagnostic Testing: Radiology Impression Acute Abdomen Series 11/25/24 09:55 IMPRESSION: Fecal retention in the colon consistent with constipation. Reading Location: [facility] Abdomen/Pelvis CT 11/25/24 11:32 IMPRESSION: 1. Fecal impaction with apparent wall thickening of the distal colon and rectumsuggesting proctitis and colitis. Clinical correlation is recommended. 2. Hepatomegaly with fatty infiltration. Reading Location: [facility] Physical Exam Const oriented x3 and no apparent distress Resp normal respiratory effort Cardio regular rate GI soft to palpation and non-tender GI Narrative: DEMETRICE no obvious stool felt on exam, no gross blood. Assessment & Plan Assessment/Plan (1) Acute proctitis: (2) Fecal impaction: PLAN: Plan Will plan to check KUB unable to feel any stool this morning on DEMETRICE. Oral laxatives ordered. If stool seen on KUB will plan for additional enema. Continue IV Zosyn white blood count improved from 27-17. Annalise Welch M.D. Pager: [phone] [facility] [address] [place] [address], [address] [place] [address] Office: [phone] Charges/Coding Multi Select Codes Visit Charges Visit Charges: 11532 Subs Hosp L2 11/26/24 0720 <Electronically signed by Annalise Welch MD> Cosigner Signature (if applicable): CC: ~ Signed [facility] Work Phone: [phone] Progress note [facility] Medical Records Department [address] [place] [address] Progress Note 11/26/24 0909 MR#: [id number] Acct: [id number] Name: GHISLAINE GIVENS Rep #:[id number] : 1990 34 From: Brenda Rao MD PCP: Amy Solorzano, Sara, SH[employer]FITTER[employer] SUPERVISOR-C Statu s:ADM IN Location: [facility] [id number] Subjective Subjective Patient seen and examined. She still complains of nausea and vomiting. She hadseveral bowel movements overnight. Review of systems otherwise negative. She has remained hemodynamically stable. Objective Data Objective Data Vital Signs: Vital Signs Temp Pulse Resp BP Pulse Ox O2 Del Method 97.6 F L 72 18 106/73 99 Room Air 11/26/24 03:48 11/26/24 03:48 11/26/24 03:48 11/26/24 03:48 11/26/24 03:48 11/26/24 03:48 Oxygen Delivery Method Room Air Weight: 244 lb 1 oz Body Mass Index (BMI) 39.4 Intake & Output: Intake and Output for Last 24 Hours 11/24/24 11/25/24 11/26/24 23:59 23:59 23:59 Intake Total 2049 1050 / 1050 Balance 2049 1050 / 1050 Lab / Micro Data 11/26/24 04:24 11/26/24 04:24 Labs: Laboratory Results - last 24 hr 11/25/24 09:40: WBC 27.0 H, RBC 5.21, Hgb 14.1, Hct 42.3, MCV 81.2, MCH 27.1, MCHC 33.3, RDW Std Deviation 41.1, RDW Coeff of John 14.2, Plt Count 400, MPV 9.4, Immature Gran % (Auto) 0.700, Neut % (Auto) 79.5 H, Lymph % (Auto) 11.4 L, Bacon % (Auto) 8.0, Eos % (Auto) 0.1, Baso % (Auto) 0.3, AbsoluteNeuts (auto) 21.5 H, Absolute Lymphs (auto) 3.09, Nucleated RBC % 0, Platelet Estimate A, Sodium 135, Potassium 4.0, Chloride 97 L, Carbon Dioxide 21.3, Anion Gap 17 H, BUN 19, Creatinine 1.20, EstimCreat Clear Calc 86.69, Est GFR (MDRD) Non-Af 62,BUN/Creatinine Ratio 15.9, Glucose 203 H, Calcium 9.6, Serum , Qual NEGATIVE 11/25/24 11:20: Urine Color Yellow, Urine Clarity Cloudy, Urine pH 6.0, Ur Specific [place] 1.025, Urine Protein 30 H, Urine Glucose (UA) Normal, Urine Ketones 5 H, Urine Occult Blood 25 H, Urine Nitrite Negative, Urine Bilirubin 1 H, Urine Urobilinogen 1 H, Ur Leukocyte Esterase Negative, Urine RBC 0-5 SEEN, Urine WBC 0-5 SEEN, Ur Squamous Epith Cells 0-5 SEEN, Amorphous Sediment 2+ URATE, UrineBacteria 0 SEEN, Hyaline Casts 0-5 SEEN, Urine Mucus 0 SEEN 11/25/24 12:16: Lactic Acid 1.5 11/25/24 17:53: POC Glucose 139 H 11/26/24 00:02: POC Glucose 166 H 11/26/24 04:24: WBC 17.6 H, RBC 4.08 L, Hgb 11.0 L, Hct 34.2 L, MCV 83.8, MCH 27.0, MCHC 32.2, RDW Std Deviation 43.0, RDW Coeff of John 13.9, Plt Count 308, MPV 9.8, Immature Gran % (Auto) 0.600, Neut % (Auto) 73.4 H, Lymph % (Auto) 19.4, Bacon % (Auto) 6.2, Eos % (Auto) 0.2, Baso % (Auto) 0.2, Absolute Neuts (auto) 12.9 H, Absolute Lymphs (auto) 3.42, Nucleated RBC % 0, Sodium 137, Potassium 4.0,Chloride 104, Carbon Dioxide 22.6, Anion Gap 11, BUN 17, Creatinine 1.16, Estim Creat Clear Calc 87.78, Est GFR (MDRD) Non-Af 64, BUN/Creatinine Ratio 15.0, Glucose 148 H, Calcium 7.8 11/26/24 06:02: POC Glucose 160 H Radiography Diagnostic Testing: Radiology Impression Acute Abdomen Series 11/25/24 09:55 IMPRESSION: Fecal retention in the colon consistent with constipation. Reading Location: [facility] Abdomen/Pelvis CT 11/25/24 11:32 IMPRESSION: 1. Fecal impaction with apparent wall thickening of the distal colon and rectumsuggesting proctitisand colitis. Clinical correlation is recommended. 2. Hepatomegaly with fatty infiltration. Reading Location: [facility] KUB X-Ray 11/26/24 08:10 IMPRESSION: Constipation with suggestion of fecal impaction of the rectum. Reading Location: [facility] Physical Exam Const alert and oriented x3 Constitutional Narrative: Class II obesity. Uncomfortable due to the nausea and vomiting General Appearance: cooperative HEENT normocephalic, head/scalp atraumatic, hearing grossly normal bilaterally, moist oral mucous membranes and oropharynx normal Eyes PERRL, EOMs intact bilaterally and conjunctivae normal Neck no lymphadenopathy, supple and no JVD Resp normal respiratory effort, normal air movement, no retractions, no use of accessory muscles and clear to auscultation bilaterally Cardio regular rate, regular rhythm, S1 normal heart sound, S2 normal heart sound and no murmurs GI normal to inspection, nondistended, normoactive bowel sounds, soft to palpation and non-tender Extremity normal to inspection, full ROM and no clubbing, cyanosis or edema Neuro oriented x3, CN's II-XII intact bilaterally, moves all extremities and no focal motor deficits Sensorium / Orientation: awake and alert Motor Exam: strength 5/5 throughout Psych thought process normal, cooperative and affect normal Appearance: appropriate Assessment & Plan Assessment/Plan (1) Colitis: (2) Acute proctitis: (3) Fecal impaction: PLAN: Plan # Stercoral proctocolitis with overflow diarrhea in the setting of severe constipation with fecal impaction * Had enemas with laxative yesterday. She had several bowel movements. * Complaining of nausea and vomiting today. At time of my review patient was having incessant retching. * General surgery on board. Had KUB this morning which showed constipation with suggestion of fecalimpaction of the rectum. * Continue keeping n.p.o. perform ice chips. * On IV Zosyn for the colitis. General surgery on board. * WBC today 17.6 down from 27 yesterday. * #Type 2 diabetes mellitus * On dulaglutide and Lantus 20 units twice daily. Hold Lantus and dulaglutide. Insulin sliding scale. * Accu-Cheks every 6 hourly as patient is NPO. * #Class II obesity: BMi is 39.4. Complicates acute care, expected recovery and prognosis. DVT prophylaxis: Lovenox CODE STATUS: Full code Charges/Coding Visit Charges Inpatient E&M: 15509 Subs Hosp L2 11/26/24 0920 Brenda Rao MD Cosigner Signature (if applicable): CC: ~ Signed [facility]05-18-2025 Radiology Diagnostic study note [facility] Services [address] [place], [place] [id number] Abdomen Single View MR#: [id number] Acct: [id number] Name: GHISLAINE GIVENSREBA Rep #: [id number] : 1990 F 34 From: Alicja Barfield MD PCP: BROOKLYN Warren, [employer]ITTER[employer] SUPERVISOR-C Status: ADM IN Study:Abdomen Single View Date of Exam: 11/26/24 Exam# [id number] Ordering Dr: Annalise Welch MD EXAM: XR Abdomen, 1 View CLINICAL INDICATION: FECAL IMPACTION-RECTUM TECHNIQUE: Frontal supine view of the abdomen/pelvis. COMPARISON: No relevant prior studies available. FINDINGS: GASTROINTESTINAL TRACT: Constipation with suggestion of fecal impaction of the rectum. No dilation. BONES/JOINTS: Unremarkable. No acute fracture. RAD/Abdomen Single View IMPRESSION: Constipation with suggestion of fecal impaction of the rectum. Reading Location: [id number] CC: [facility] [employer]TER[employer] SUPERVISOR-C Amy Solorzano; Dr. Annalise Welch MD ~ Hearing Aid Assistant: Signed [facility]05-18-2025 History and physical note [facility] Medical Records Department [address] [place] [address] H&P Exam - Hospitalist 11/25/24 1324 MR#: [id number] Acct: [id number] Name: GHISLAINE GIVENS VERENICE Rep #:[id number] : 1990 34 From: Brenda Rao MD PCP: Amy Solorzano, [facility], [employer] SUPERVISOR-C Statu s:ADM IN Location: MS3 [id number] HPI - General General Date of Admission: 11/25/24 Date of Service: 11/25/24 Chief Complaint: abdominal pain, constipation HPI Narrative GHISLAINE GIVENS, is a 34 F with a PMH as outlined including diabetes who presentsvia the ED on 11/25/2024 with a complaint of constipation. She has struggled withconstipation over the years and takes laxatives. She says 3 days prior to admission, she took her laxative due to constipation. She subsequently started having diarrhea. She also had cramping and was worried that she may have fecal impaction. SHe also complained of nausea and vomiting. She had no other complaints. Review of symptoms otherwise negative. Vitals in the ED were blood pressure of 123/85, pulse rate of 91 and respiratoryrate of 16. Pulse ox was 95% on room air. CBC showed hemoglobin of 14.1 with WBC of 27 and platelets of 400. Chemistry was largely unremarkable. Lactic acid was 1.5. Urinalysis showed 0 bacteria and negative leukocyte es terase. She initially had an abdominal series x-ray which showed fecal retention in the colon consistent with constipation. She then had CT of the abdomen and pelvis which showed fecal impaction withapparent wall thickening of the distal colon and rectum suggesting proctitis and colitis as well ashepatomegaly with fatty infiltration. She has been admitted to be managed for proctocolitis, likelystercoral colitis in the setting of severe constipation with likely overflow diarrhea. [facility] Medical History (Updated 11/25/24 @ 15:05 by Alejandrina Mayorga) GERD (gastroesophageal reflux disease) Wears glasses History of MRSA infection Borderline personality disorder Alcohol use Insulin dependent diabetes mellitus Dietary restriction Heartburn Smoker Shortness of breath on exertion Leg cramps Type 2 diabetes mellitus with peripheral neuropathy Neuropathy, diabetic Elevated serum creatinine Failure of outpatient treatment Nausea and vomiting Diabetes mellitus with diabetic polyneuropathy Type 2 diabetes mellitus with foot ulcer Anxiety Depression Constipation Asthma Diabetes Home Medications ?Medication ?Instructions ?Recorded ?Last Taken ?Type insulin glargine 100 unit/mL (3 20 unit subcut BID doreen oniel 08/12/22 11/25/24 History mL) subcutaneous pen (Lantus Solostar U-100 Insulin) trazodone 300 mg tablet 200 mg PO QHS PRN insomnia 0 07/16/23 Unknown History albuterol sulfate 90 mcg/actuation 2 puff inhalation Q 4H PRN 11/25/24 Unknown History aerosol inhaler shortness of breath or wheez ing dulaglutide 4.5 mg/0.5 mL 4.5 mg subcut SA 11/25/24 History subcutaneous pen injector (Trulicity) Allergy/AdvReac Type Severity Reaction Status Date / Time No Known Allergies Allergy Verified 11/25/24 08:58 Family History Other Bleeding disorder Cancer Diabetes Hypertension Surgical History Hx of foot surgery Hx of foot surgery Social History Smoking Status: Current every day smoker tobacco type: cigarettes alcohol intake: never substance use type: does not use what type of physical activity do you participate in: none ROS Constitutional Constitutional: Reports fatigue, malaise and weakness; Denies anorexia, chills or fever(s) Eyes Eyes: Denies change in vision ENT HEENT: Denies dysphagia, headache(s) or sore throat Cardiovascular Cardiovascular: Denies chest pain, dyspnea on exertion, edema, lightheadedness, orthopnea or palpitations Respiratory/Chest Respiratory/Chest: Denies cough, dyspnea, productive cough, shortness of breath at rest or shortness of breath with exertion Gastrointestinal Gastrointestinal: Reports abdominal pain, constipation, diarrhea, nausea and vomiting; Denies dyspepsia, hematemesis, hematochezia, loose stools or melena Genitourinary Genitourinary: Denies burning urination or dysuria Musculoskeletal Musculoskeletal: Denies arthralgias Neurologic Neurologic: Denies confusion, dizziness, focal weakness or headache(s) Psychiatric Psychiatric: Denies anxiety or depression Vital Signs Vital Signs Vital Signs: 11/25/24 08:48 11/25/24 09:50 11/25/24 10:00 Temperature 96.8 F L 98.0 F 97.9 F Temperature Source Temporal Oral Temporal Pulse Rate 112 H 103 H 94 Respiratory Rate 20 H 19 H 17 Blood Pressure 121/91 H 130/91 H 122/91 H Blood Pressure Mean 101 104 101 Pulse Ox 99 96 92 Oxygen Delivery Method Room Air Room Air Room Air 11/25/24 11:00 11/25/24 12:00 Temperature 97.6 F L Temperature Source Temporal Pulse Rate 85 91 Respiratory Rate 16 Blood Pressure 124/90 H 123/85 H Blood Pressure Mean 101 97 Pulse Ox 94 95 Oxygen Delivery Method Room Air Weight Weight: 253 lb 9.6 oz Body Mass Index (BMI) 40.9 Physical Exam Const alert, oriented x3 and no apparent distress Constitutional Narrative: Class III obesity General Appearance: cooperative HEENT normocephalic, head/scalp atraumatic, hearing grossly normal bilaterally, moist oral mucous membranes and oropharynx normal Mouth: oral and palatal mucosa normal Eyes PERRL, EOMs intact bilaterally and conjunctivae normal Neck no lymphadenopathy, supple and no JVD Resp normal respiratory effort, no retractions, no use of accessory muscles and clearto auscultation bilaterally Cardio regular rate, regular rhythm, S1 normal heart sound, S2 normal heart sound and no murmurs GI normal to inspection, nondistended, normoactive bowel sounds GI Narrative: Moderate generalized abdominal tenderness with no guarding or rebound tenderness. Extremity normal to inspection, full ROM and no clubbing, cyanosis or edema Neuro oriented x3, CN's II-XII intact bilaterally, moves all extremities and no focal motor deficits Sensorium / Orientation: awake and alert Motor Exam: strength 5/5 throughout Psych affect normal Results Lab / Micro Data 11/26/24 04:24 11/26/24 04:24 Labs: Laboratory Results - last 24 hr 11/25/24 09:40: WBC 27.0 H, RBC 5.21, Hgb 14.1, Hct 42.3, MCV 81.2, MCH 27.1, MCHC 33.3, RDW Std Deviation 41.1, RDW Coeff of John 14.2, Plt Count 400, MPV 9.4, Immature Gran % (Auto) 0.700, Neut % (Auto) 79.5 H, Lymph % (Auto) 11.4 L, Bacon % (Auto) 8.0, Eos % (Auto) 0.1, Baso % (Auto) 0.3, AbsoluteNeuts (auto) 21.5 H, Absolute Lymphs (auto) 3.09, Nucleated RBC % 0, Platelet Estimate A, Sodium 135, Potassium 4.0, Chloride 97 L, Carbon Dioxide 21.3, Anion Gap 17 H, BUN 19, Creatinine 1.20, EstimCreat Clear Calc 86.69, Est GFR (MDRD) Non-Af 62,BUN/Creatinine Ratio 15.9, Glucose 203 H, Calcium 9.6, Serum , Qual NEGATIVE 11/25/24 11:20: Urine Color Yellow, Urine Clarity Cloudy, Urine pH 6.0, Ur Specific [place] 1.025, Urine Protein 30 H, Urine Glucose (UA) Normal, Urine Ketones 5 H, Urine Occult Blood 25 H, Urine Nitrite Negative, Urine Bilirubin 1 H, Urine Urobilinogen 1 H, Ur Leukocyte Esterase Negative, Urine RBC 0-5 SEEN, Urine WBC 0-5 SEEN, Ur Squamous Epith Cells 0-5 SEEN, Amorphous Sediment 2+ URATE, UrineBacteria 0 SEEN, Hyaline Casts 0-5 SEEN, Urine Mucus 0 SEEN 11/25/24 12:16: Lactic Acid 1.5 Imaging Radiology Impression Acute Abdomen Series 11/25/24 09:55 IMPRESSION: Fecal retention in the colon consistent with constipation. Reading Location: [facility] Abdomen/Pelvis CT 11/25/24 11:32 IMPRESSION: 1. Fecal impaction with apparent wall thickening of the distal colon and rectumsuggesting proctitisand colitis. Clinical correlation is recommended. 2. Hepatomegaly with fatty infiltration. Reading Location: [facility] Assessment & Plan Assessment/Plan (1) Colitis: (2) Acute proctitis: (3) Fecal impaction: PLAN: Plan # Stercoral proctocolitis with overflow diarrhea in the setting of severe constipation with fecal impaction * Admit to [facility]. Admitted with a complaint of abdominal pain. She does have a history of severe constipation. She took her laxatives but subsequently started having diarrhea. * Abdominal series x-ray showed fecal retention in the colon consistent with constipation. * CT of the abdomen and pelvis showed fecal impaction with apparent wall thickening of the distal colon and rectum suggesting proctitis and colitis. It also showed hepatomegaly with fatty infiltration * Keep n.p.o. for now. Consult general surgery * Placed on lactulose and Dulcolax to help with constipation. May also need enema if all these do not work. * #Type 2 diabetes mellitus * On dulaglutide and Lantus 20 units twice daily. Hold Lantus and dulaglutide. Insulin sliding scale. Accu-Cheks ACHS. * #Class II obesity: BMi is 39.4. Complicates acute care, expected recovery and prognosis. DVT prophylaxis: Lovenox CODE STATUS: Full code Charges/Coding Visit Charges Inpatient E&M: 08900 Init Hosp L2 11/26/24 5017 Cosigner Signature (if applicable): CC: [facility] [employer] SUPER[employer]OR-[employer] Amy Solorzano; Dr. Brenda Rao MD~ Signed [facility]05-18-2025 Consult note [facility] Medical Records Department [address] [place] [address] Consultation - Surgical 11/25/242050 MR#: [id number] Acct: [id number] Name: GHISLAINE GIVENS Rep #:[id number] : 1990 34 From: Annalise Welch MD PCP: [facility]OOK[place] Warren, [employer] SUPERVISOR-C Statu s:ADM IN Location: [place] [id number] Assessment & Plan Assessment/Plan (1) Fecal impaction: (2) Acute proctitis: PLAN: Plan Discussed with patient would recommend additional enema to help soften the bowelof stool in the rectum. Along with additional ones after that. Continue IV Zosyn Discussed with patient plan to DC with laxatives. Annalise Welch M.D. Pager: [phone] [facility] [address] [place] [address], [facility], [address] [place] [address] Office: [phone] HPI Consult Data Date of Consult: 11/26/24 HPI Narrative Reason for Consultation: Fecal impaction, acute proctitis HPI Narrative: GHISLAINE GIVENS, is a 34 F who presents to the ER due to constipation. Patient has had issues with constipation for years. Patient states that she did take her laxative for constipation 3 days prior to coming in however she was only having diarrhea and felt that there were some harder stool she was unable to getout. Also complained of some nausea and vomiting. CT abdomen pelvis showed fecal impaction with wall thickening of the distal colon and rectum suggesting proctitis/colitis. Patient white blood count was 27 patient was started on Zosyn IV. Patient did have an enema in the ER and did havesome results with it. [facility] Medical History (Updated 11/25/24 @ 15:05 by Alejandrina Mayorga) GERD (gastroesophageal reflux disease) Wears glasses History of MRSA infection Borderline personality disorder Alcohol use Insulin dependent diabetes mellitus Dietary restriction Heartburn Smoker Shortness of breath on exertion Leg cramps Type 2 diabetes mellitus with peripheral neuropathy Neuropathy, diabetic Elevated serum creatinine Failure of outpatient treatment Nausea and vomiting Diabetes mellitus with diabetic polyneuropathy Type 2 diabetes mellitus with foot ulcer Anxiety Depression Constipation Asthma Diabetes Home Medications ?Medication ?Instructions ?Recorded ?Last Taken ?Type insulin glargine 100 unit/mL (3 20 unit subcut BID doreen betes 08/12/22 11/25/24 History mL) subcutaneous pen (Lantus Solostar U-100 Insulin) trazodone 300 mg tablet 200 mg PO QHS PRN insomnia 0 07/16/23 Unknown History albuterol sulfate 90 mcg/actuation 2 puff inhalation Q 4H PRN 11/25/24 Unknown History aerosol inhaler shortness of breath or wheez ing dulaglutide 4.5 mg/0.5 mL 4.5 mg subcut SA 11/25/24 History subcutaneous pen injector (Trulicity) Allergy/AdvReac Type Severity Reaction Status Date / Time No Known Allergies Allergy Verified 11/25/24 08:58 Family History Other Bleeding disorder Cancer Diabetes Hypertension Surgical History Hx of foot surgery Hx of foot surgery Social History Smoking Status: Current every day smoker tobacco type: cigarettes alcohol intake: never substance use type: does not use what type of physical activity do you participate in: none ROS Constitutional Constitutional: Denies fever(s) Eyes Eyes: Reports blurry vision ENT HEENT: Denies dysphagia Cardiovascular Cardiovascular: Denies chest pain Respiratory/Chest Respiratory/Chest: Denies cough Gastrointestinal Gastrointestinal: Reports constipation, diarrhea, nausea and vomiting; Denies abdominal pain or hematochezia Genitourinary Genitourinary: Denies dysuria Musculoskeletal Musculoskeletal: Denies joint swelling Integumentary Integumentary: Denies jaundice Neurologic Neurologic: Denies focal weakness Hematologic/Lymphatic Hematologic/Lymphatic: Denies easy bleeding Physical Exam Const alert, oriented x3 and no apparent distress HEENT normocephalic and head/scalp atraumatic Resp normal respiratory effort Cardio regular rate GI soft to palpation, non-tender and non-distended GI Narrative: DEMETRICE hard stool with tip finger, no gross blood Palpation: Negative for guarding Extremity no clubbing, cyanosis or edema Neuro CN's II-XII intact bilaterally Psych mental status grossly normal Lab / Micro Data 11/26/24 04:24 11/26/24 04:24 Labs: Laboratory Results - last 24 hr 11/25/24 09:40: WBC 27.0 H, RBC 5.21, Hgb 14.1, Hct 42.3, MCV 81.2, MCH 27.1, MCHC 33.3, RDW Std Deviation 41.1, RDW Coeff of John 14.2, Plt Count 400, MPV 9.4, Immature Gran % (Auto) 0.700, Neut % (Auto) 79.5 H, Lymph % (Auto) 11.4 L, Bacon % (Auto) 8.0, Eos % (Auto) 0.1, Baso % (Auto) 0.3, AbsoluteNeuts (auto) 21.5 H, Absolute Lymphs (auto) 3.09, Nucleated RBC % 0, Platelet Estimate A, Sodium 135, Potassium 4.0, Chloride 97 L, Carbon Dioxide 21.3, Anion Gap 17 H, BUN 19, Creatinine 1.20, EstimCreat Clear Calc 86.69, Est GFR (MDRD) Non-Af 62,BUN/Creatinine Ratio 15.9, Glucose 203 H, Calcium 9.6, Serum , Qual NEGATIVE 11/25/24 11:20: Urine Color Yellow, Urine Clarity Cloudy, Urine pH 6.0, Ur Specific [place] 1.025, Urine Protein 30 H, Urine Glucose (UA) Normal, Urine Ketones 5 H, Urine Occult Blood 25 H, Urine Nitrite Negative, Urine Bilirubin 1 H, Urine Urobilinogen 1 H, Ur Leukocyte Esterase Negative, Urine RBC 0-5 SEEN, Urine WBC 0-5 SEEN, Ur Squamous Epith Cells 0-5 SEEN, Amorphous Sediment 2+ URATE, UrineBacteria 0 SEEN, Hyaline Casts 0-5 SEEN, Urine Mucus 0 SEEN 11/25/24 12:16: Lactic Acid 1.5 11/25/24 17:53: POC Glucose 139 H Imaging Radiology Impression Acute Abdomen Series 11/25/24 09:55 IMPRESSION: Fecal retention in the colon consistent with constipation. Reading Location: [facility] Abdomen/Pelvis CT 11/25/24 11:32 IMPRESSION: 1. Fecal impaction with apparent wall thickening of the distal colon and rectumsuggesting proctitisand colitis. Clinical correlation is recommended. 2. Hepatomegaly with fatty infiltration. Reading Location: [facility] Charges/Coding Visit Charges Inpatient E&M: 31309 Init Hosp L3 11/26/24 0747 Cosigner Signature (if applicable): CC: [facility] [employer] SUPER[employer]OR-[employer] Amy Solorzano~ Signed [facility]05-18-2025 Progress note [facility] Medical Records Department [address] [place] [address] Progress Note - Surgery 11/26/24 0741 MR#: [id number] Acct: [id number] Name: GHISLAINE GIVENS Rep #:[id number] : 1990 34 From: Annalise Welch MD PCP: BROOK[place]N Warren, [employer] SUPERVISOR-C Statu s:ADM IN Location: MS3 [id number] Subjective Subjective Patient states she did have results with the enema did refuse additional enemas last night. Patientdoes states she has some bleeding with her stool. Patient white blood count is down to 17 from 27 Objective Data Objective Data Vital Signs: Vital Signs Temp Pulse Resp BP Pulse Ox O2 Del Method 97.6 F L 72 18 106/73 99 Room Air 11/26/24 03:48 11/26/24 03:48 11/26/24 03:48 11/26/24 03:48 11/26/24 03:48 11/26/24 03:48 Oxygen Delivery Method Room Air Weight: 244 lb 1 oz Body Mass Index (BMI) 39.4 Intake & Output: Intake and Output for Last 24 Hours 11/24/24 11/25/24 11/26/24 23:59 23:59 23:59 Intake Total 2049 50 / 50 Balance 2049 50 / 50 Lab / Micro Data 11/26/24 04:24 11/26/24 04:24 Labs: Laboratory Results - last 24 hr 11/25/24 09:40: WBC 27.0 H, RBC 5.21, Hgb 14.1, Hct 42.3, MCV 81.2, MCH 27.1, MCHC 33.3, RDW Std Deviation 41.1, RDW Coeff of John 14.2, Plt Count 400, MPV 9.4, Immature Gran % (Auto) 0.700, Neut % (Auto) 79.5 H, Lymph % (Auto) 11.4 L, Bacon % (Auto) 8.0, Eos % (Auto) 0.1, Baso % (Auto) 0.3, AbsoluteNeuts (auto) 21.5 H, Absolute Lymphs (auto) 3.09, Nucleated RBC % 0, Platelet Estimate A, Sodium 135, Potassium 4.0, Chloride 97 L, Carbon Dioxide 21.3, Anion Gap 17 H, BUN 19, Creatinine 1.20, EstimCreat Clear Calc 86.69, Est GFR (MDRD) Non-Af 62,BUN/Creatinine Ratio 15.9, Glucose 203 H, Calcium 9.6, Serum , Qual NEGATIVE 11/25/24 11:20: Urine Color Yellow, Urine Clarity Cloudy, Urine pH 6.0, Ur Specific [place] 1.025, Urine Protein 30 H, Urine Glucose (UA) Normal, Urine Ketones 5 H, Urine Occult Blood 25 H, Urine Nitrite Negative, Urine Bilirubin 1 H, Urine Urobilinogen 1 H, Ur Leukocyte Esterase Negative, Urine RBC 0-5 SEEN, Urine WBC 0-5 SEEN, Ur Squamous Epith Cells 0-5 SEEN, Amorphous Sediment 2+ URATE, UrineBacteria 0 SEEN, Hyaline Casts 0-5 SEEN, Urine Mucus 0 SEEN 11/25/24 12:16: Lactic Acid 1.5 11/25/24 17:53: POC Glucose 139 H 11/26/24 00:02: POC Glucose 166 H 11/26/24 04:24: WBC 17.6 H, RBC 4.08 L, Hgb 11.0 L, Hct 34.2 L, MCV 83.8, MCH 27.0, MCHC 32.2, RDW Std Deviation 43.0, RDW Coeff of John 13.9, Plt Count 308, MPV 9.8, Immature Gran % (Auto) 0.600, Neut % (Auto) 73.4 H, Lymph % (Auto) 19.4, Bacon % (Auto) 6.2, Eos % (Auto) 0.2, Baso % (Auto) 0.2, Absolute Neuts (auto) 12.9 H, Absolute Lymphs (auto) 3.42, Nucleated RBC % 0, Sodium 137, Potassium 4.0,Chloride 104, Carbon Dioxide 22.6, Anion Gap 11, BUN 17, Creatinine 1.16, Estim Creat Clear Calc 87.78, Est GFR (MDRD) Non-Af 64, BUN/Creatinine Ratio 15.0, Glucose 148 H, Calcium 7.8 11/26/24 06:02: POC Glucose 160 H Radiography Diagnostic Testing: Radiology Impression Acute Abdomen Series 11/25/24 09:55 IMPRESSION: Fecal retention in the colon consistent with constipation. Reading Location: [facility] Abdomen/Pelvis CT 11/25/24 11:32 IMPRESSION: 1. Fecal impaction with apparent wall thickening of the distal colon and rectumsuggesting proctitisand colitis. Clinical correlation is recommended. 2. Hepatomegaly with fatty infiltration. Reading Location: [facility] Physical Exam Const oriented x3 and no apparent distress Resp normal respiratory effort Cardio regular rate GI soft to palpation and non-tender GI Narrative: DEMETRICE no obvious stool felt on exam, no gross blood. Assessment & Plan Assessment/Plan (1) Acute proctitis: (2) Fecal impaction: PLAN: Plan Will plan to check KUB unable to feel any stool this morning on DEMETRICE. Oral laxatives ordered. If stool seen on KUB will plan for additional enema. Continue IV Zosyn white blood count improved from 27-17. Annalise Welch M.D. Pager: [phone] [facility] [address] [place] [address], [facility], [address] [place] [address] Office: [phone] Charges/Coding Multi Select Codes Visit Charges Visit Charges: 60662 Subs Hosp L2 11/26/24 0747 Cosigner Signature (if applicable): CC: ~ Signed [facility]05-17-2025 Discharge summary Author Drew Hinson [facility] Note Date/Time November 25, 2024 1:45p m [facility] Medical Records Department [address] [place] [address] Emergency Department Summary 11/25/24 MR#: [id number] Acct: [id number] Name: GHISLAINE GIVENS Rep #:[id number] : 1990 34 From: Drew Hinson MD PCP: BROOKLYN Warren, [employer] SUPERVISOR-C Statu s:REG ER Location: ED HPI HPI - GI History of Present Illness Chief Complaint: Constipation Narrative Narrative: 34-year-old female past medical history of diabetes states that she gets constipation frequently for years presents with abdominal pain and cramping as well as constipation that she has had for the last few days. She relates history that 3 days prior to her taking a laxative, she was having problems withnot having a bowel movement. It was , 2 days ago when she took 4 Ex-Laxin the morning, and then that evening began having abdominal cramping. She states that she still feels like there is stool stuck but she is having multipleepisodes of diarrhea and watery stool. She states that when she gets cramping, it still feels like she may have a fecal impaction. She is experienced nausea and vomiting over the last 24 hours multiple times but no hematemesis. Currently, she is only dry heaving. She did not take her insulin today because she took her blood sugar and it was only 190. Additionally, she has not been able to eat today because of the dry heaving. Her cramping in the abdomen is intermittent. She denies any previous abdominal surgeries, no reason to be obstructed. While she thinks she may have IBS-see, she has been unable to see gastroenterology to confirm this diagnosis. No exacerbating or alleviating factors. PFSH PFSH Medical History Wears glasses History of MRSA infection Borderline personality disorder Alcohol use Insulin dependent diabetes mellitus Dietary restriction Heartburn Smoker Shortness of breath on exertion Leg cramps Type 2 diabetes mellitus with peripheral neuropathy Neuropathy, diabetic Elevated serum creatinine Failure of outpatient treatment Nausea and vomiting Diabetes mellitus with diabetic polyneuropathy Type 2 diabetes mellitus with foot ulcer Anxiety Depression Constipation Asthma Diabetes Home Medications ?Medication ?Instructions ?Recorded ?Last Taken ?Type insulin glargine 100 unit/mL (3 20 unit subcut BID doreen betes 08/12/22 11/25/24 History mL) subcutaneous pen (Lantus Solostar U-100 Insulin) trazodone 300 mg tablet 200 mg PO QHS PRN insomnia 0 07/16/23 Unknown History albuterol sulfate 90 mcg/actuation 2 puff inhalation Q 4H PRN 11/25/24 Unknown History aerosol inhaler shortness of breath or wheez ing dulaglutide 4.5 mg/0.5 mL 4.5 mg subcut SA 11/25/24 History subcutaneous pen injector (Trulicity) Allergy/AdvReac Type Severity Reaction Status Date / Time No Known Allergies Allergy Verified 11/25/24 08:58 Family History Other Bleeding disorder Cancer Diabetes Hypertension Surgical History Hx of foot surgery Hx of foot surgery Social History Smoking Status: Current every day smoker tobacco type: cigarettes alcohol intake: never substance use type: does not use what type of physical activity do you participate in: none ROS ROS ED ROS Narrative Review of systems positive for diffuse, crampy abdominal pain, constipation withno bowel movement for the last 5 to 6 days although she is having diarrhea from taking a laxative. Positive nausea and vomiting, and dry heaving. No fevers orchills. No exacerbating or alleviating factors. EXAM Physical Exam Narrative Exam Narrative: Afebrile. Vital signs noted. Nontoxic-appearing. Cardiovascular examination reveals mild tachycardia. Lungs are clear to auscultation bilaterally. The abdomen is soft, nontender, without guarding or rebound. Positive bowel sounds. Neurological examination is nonfocal and nonlateralizing. Patient was previously tearful prior to examination. Const Vital Signs: 11/25/24 08:48 11/25/24 09:50 11/25/24 10:00 Temperature 96.8 F L 98.0 F 97.9 F Temperature Source Temporal Oral Temporal Pulse Rate 112 H 103 H 94 Respiratory Rate 20 H 19 H 17 Blood Pressure 121/91 H 130/91 H 122/91 H Blood Pressure Mean 101 104 101 Pulse Ox 99 96 92 Oxygen Delivery Method Room Air Room Air Room Air 11/25/24 11:00 11/25/24 12:00 Temperature 97.6 F L Temperature Source Temporal Pulse Rate 85 91 Respiratory Rate 16 Blood Pressure 124/90 H 123/85 H Blood Pressure Mean 101 97 Pulse Ox 94 95 Oxygen Delivery Method Room Air MDM MDM MDM Narrative Medical decision making narrative: The differential diagnosis includes but not limited to diabetic gastroparesis versus nonspecific abdominal pain versus obstruction versus constipation versus undiagnosed irritable bowel syndrome with constipation. Comprehensive workup was pursued. Patient states her last menstrual period was approximately a week ago. I will obtain basic laboratory work including CBC and BMP to look for dehydration or other electrolyte imbalance given her stooling. I reviewed her prior ED visits and outpatient record and she has had multiple CTs in the past. I will obtain abdominal x-rays. She was given a bolus of normal saline and ondansetron. Regarding her abdominal pain and cramping, I discussed with her the use of an antispasmodic which could cause more constipation however. We will wait until further workup is pursued before administering any further analgesics. I do not feel narcotics are indicated currently which can cause constipation as well. I reviewed her laboratory work and she has a leukocytosis of 27,000. When compared to other laboratories, she has been elevated just above 11 in the past,but not this high. Hemoglobin 14.1, hematocrit 42.3, platelet count 400. Her electrolyte panel shows a BUN of 19 with creatinine 1.2, glucose is slightly elevated 203. Given her leukocytosis, I added blood cultures and a lactic acid. Lactic acid is normal at 1.5. Urinalysis negative for infection with WBC countof 0-5. 0 bacteria. I do not feel she has a urinary tract infection. On my interpretation of the x-rays of the abdomen, she has a large fecal burden with air dilation. I reviewed the radiology report which confirms my independent interpretation and comments on constipation and the fecal burden/retention. Given her leukocytosis and continued pain, she was administered morphine, and CT was obtained. I reviewed the radiology report of the CT of theabdomen and pelvis and she does have a fecal impaction with inflammation and thickening of the colon wall consistent with proctitis and colitis. At this point in time, I did perform digital rectal exam but was not going to perform fecal disimpaction as patient did not tolerated and I did not want to risk perforation. She was started on IV antibiotics in the form of Zosyn for her colitis and proctitis, and patient discussed with the hospitalist for admission. I discussed patient with Dr. Garrett who requested that I discussed patient withDr. Welch with general surgery. She requested that the patient be started onenemas and agrees with admission to medicine. Patient is in stable condition. History & Record Review Discussion w/independent historian: Patient Lab Data Attestation: I reviewed the patient's lab results. Labs: Laboratory Results - last 24 hr 11/25/24 11/25/24 11/25/24 09:40 11:20 12:16 WBC 27.0 H RBC 5.21 Hgb 14.1 Hct 42.3 MCV 81.2 MCH 27.1 MCHC 33.3 RDW Std Deviation 41.1 RDW Coeff of John 14.2 Plt Count 400 MPV 9.4 Immature Gran % (Auto) 0.700 Neut % (Auto) 79.5 H Lymph % (Auto) 11.4 L Bacon % (Auto) 8.0 Eos % (Auto) 0.1 Baso % (Auto) 0.3 Absolute Neuts (auto) 21.5 H Absolute Lymphs (auto) 3.09 Nucleated RBC % 0 Platelet Estimate A Sodium 135 Potassium 4.0 Chloride 97 L Carbon Dioxide 21.3 Anion Gap 17 H BUN 19 Creatinine 1.20 Estim Creat Clear Calc 86.69 Est GFR (MDRD) Non-Af 62 BUN/Creatinine Ratio 15.9 Glucose 203 H Lactic Acid 1.5 Calcium 9.6 Serum , Qual NEGATIVE Urine Color Yellow Urine Clarity Cloudy Urine pH 6.0 Ur Specific [place] 1.025 Urine Protein 30 H Urine Glucose (UA) Normal Urine Ketones 5 H Urine Occult Blood 25 H Urine Nitrite Negative Urine Bilirubin 1 H Urine Urobilinogen 1 H Ur Leukocyte Esterase Negative Urine RBC 0-5 SEEN Urine WBC 0-5 SEEN Ur Squamous Epith Cells 0-5 SEEN Amorphous Sediment 2+ URATE Urine Bacteria 0 SEEN Hyaline Casts 0-5 SEEN Urine Mucus 0 SEEN Radiography X-Ray: Read by ED Physician, Read by Radiologist and - (Constipation, large amount of stool in colon) Diagnostic Testing: Clinical Impression(s) from Imaging Studies Acute Abdomen Series 11/25/24 09:55 IMPRESSION: Fecal retention in the colon consistent with constipation. Reading Location: [facility] Abdomen/Pelvis CT 11/25/24 11:32 IMPRESSION: 1. Fecal impaction with apparent wall thickening of the distal colon and rectumsuggesting proctitis and colitis. Clinical correlation is recommended. 2. Hepatomegaly with fatty infiltration. Reading Location: [facility] Management Discussion w/another healthcare provider: Hospitalist (Dr. Rao) and Zoology Professor(Dr. Welch) Discharge Plan Dx/Rx/DC Orders Clinical Impression: Fecal impaction, Acute proctitis, Colitis Disposition Disposition: Acute Care Hospital [facility] What to do if you have Problems For any increased pain, shortness of breath, bleeding, nausea or vomiting, chestpain, or any unexpected problems, contact your Primary Care Provider. Call [facility] ([phone]) or report to the closest Emergency Room. Call 911 if necessary. 11/25/24 1345 <Electronically signed by Drew Hinson MD> Cosigner Signature (if applicable): CC: BROOKLYN [employer] Amy Solorzano ~ Signed [facility] Work Phone: 1(492) 128-344105-17-2025 Evaluation note* Diagnosis Onset Date Resolution Status Admit Date Abdominal pain acute November 25, 2024 1:38pm Acute proctitis acute November 25, 2024 1:38pm Colitis acute November 25, 2024 1:38pm Diabetes acute November 25, 2024 1:38pm Fecal impaction acute November 25, 2024 1:38pm Nausea & vomiting acute November 1:38pm [facility] Work Phone: 1(408) 441-494705-17-2025 Evaluation note* Diagnosis Onset Date Resolution Status Admit Date Abdominal pain acute November 25, 2024 1:38pm Acute proctitis acute November 25, 2024 1:38pm Colitis acute November 25, 2024 1:38pm Nausea & vomiting acute November 1:38pm Fecal impaction resolved November 25, 2024 1:38pm Diabetes inactive November 25, 2024 1:38pm Colitis acute December 13, 2024 7:52am Nausea & vomiting acute December 7:52am Constipation noneactive December 13 7:52am [employer] Work Phone: 1(582) 574-565805-17-2025 Discharge summary Author Drew Hinson [facility] Note Date/Time November 25, 2024 1:45p m [facility] Medical Records Department [address] [place] [address] Emergency Department Summary 11/25/24 MR#: [id number] Acct: [id number] Name: GHISLAINE GIVENS Rep #:[id number] : 1990 34 From: Drew Hinson MD PCP: BROOKLYN Warren, [employer] Statu s:REG ER Location: ED HPI HPI - GI History of Present Illness Chief Complaint: Constipation Narrative Narrative: 34-year-old female past medical history of diabetes states that she gets constipation frequently for years presents with abdominal pain and cramping as well as constipation that she has had for the last few days. She relates history that 3 days prior to her taking a laxative, she was having problems withnot having a bowel movement. It was , 2 days ago when she took 4 Ex-Laxin the morning, and then that evening began having abdominal cramping. She states that she still feels like there is stool stuck but she is having multipleepisodes of diarrhea and watery stool. She states that when she gets cramping, it still feels like she may have a fecal impaction. She is experienced nausea and vomiting over the last 24 hours multiple times but no hematemesis. Currently, she is only dry heaving. She did not take her insulin today because she took her blood sugar and it was only 190. Additionally, she has not been able to eat today because of the dry heaving. Her cramping in the abdomen is intermittent. She denies any previous abdominal surgeries, no reason to be obstructed. While she thinks she may have IBS-see, she has been unable to see gastroenterology to confirm this diagnosis. No exacerbating or alleviating factors. [facility] Medical History Wears glasses History of MRSA infection Borderline personality disorder Alcohol use Insulin dependent diabetes mellitus Dietary restriction Heartburn Smoker Shortness of breath on exertion Leg cramps Type 2 diabetes mellitus with peripheral neuropathy Neuropathy, diabetic Elevated serum creatinine Failure of outpatient treatment Nausea and vomiting Diabetes mellitus with diabetic polyneuropathy Type 2 diabetes mellitus with foot ulcer Anxiety Depression Constipation Asthma Diabetes Home Medications ?Medication ?Instructions ?Recorded ?Last Taken ?Type insulin glargine 100 unit/mL (3 20 unit subcut BID doreen betes 08/12/22 11/25/24 History mL) subcutaneous pen (Lantus Solostar U-100 Insulin) trazodone 300 mg tablet 200 mg PO QHS PRN insomnia 0 07/16/23 Unknown History albuterol sulfate 90 mcg/actuation 2 puff inhalation Q 4H PRN 11/25/24 Unknown History aerosol inhaler shortness of breath or wheez ing dulaglutide 4.5 mg/0.5 mL 4.5 mg subcut SA 11/25/24 History subcutaneous pen injector (Trulicity) Allergy/AdvReac Type Severity Reaction Status Date / Time No Known Allergies Allergy Verified 11/25/24 08:58 Family History Other Bleeding disorder Cancer Diabetes Hypertension Surgical History Hx of foot surgery Hx of foot surgery Social History Smoking Status: Current every day smoker tobacco type: cigarettes alcohol intake: never substance use type: does not use what type of physical activity do you participate in: none ROS ROS ED ROS Narrative Review of systems positive for diffuse, crampy abdominal pain, constipation withno bowel movement for the last 5 to 6 days although she is having diarrhea from taking a laxative. Positive nausea and vomiting, and dry heaving. No fevers orchills. No exacerbating or alleviating factors. EXAM Physical Exam Narrative Exam Narrative: Afebrile. Vital signs noted. Nontoxic-appearing. Cardiovascular examination reveals mild tachycardia. Lungs are clear to auscultation bilaterally. The abdomen is soft, nontender, without guarding or rebound. Positive bowel sounds. Neurological examination is nonfocal and nonlateralizing. Patient was previously tearful prior to examination. Const Vital Signs: 11/25/24 08:48 11/25/24 09:50 11/25/24 10:00 Temperature 96.8 F L 98.0 F 97.9 F Temperature Source Temporal Oral Temporal Pulse Rate 112 H 103 H 94 Respiratory Rate 20 H 19 H 17 Blood Pressure 121/91 H 130/91 H 122/91 H Blood Pressure Mean 101 104 101 Pulse Ox 99 96 92 Oxygen Delivery Method Room Air Room Air Room Air 11/25/24 11:00 11/25/24 12:00 Temperature 97.6 F L Temperature Source Temporal Pulse Rate 85 91 Respiratory Rate 16 Blood Pressure 124/90 H 123/85 H Blood Pressure Mean 101 97 Pulse Ox 94 95 Oxygen Delivery Method Room Air MDM MDM MDM Narrative Medical decision making narrative: The differential diagnosis includes but not limited to diabetic gastroparesis versus nonspecific abdominal pain versus obstruction versus constipation versus undiagnosed irritable bowel syndrome with constipation. Comprehensive workup was pursued. Patient states her last menstrual period was approximately a week ago. I will obtain basic laboratory work including CBC and BMP to look for dehydration or other electrolyte imbalance given her stooling. I reviewed her prior ED visits and outpatient record and she has had multiple CTs in the past. I will obtain abdominal x-rays. She was given a bolus of normal saline and ondansetron. Regarding her abdominal pain and cramping, I discussed with her the use of an antispasmodic which could cause more constipation however. We will wait until further workup is pursued before administering any further analgesics. I do not feel narcotics are indicated currently which can cause constipation as well. I reviewed her laboratory work and she has a leukocytosis of 27,000. When compared to other laboratories, she has been elevated just above 11 in the past,but not this high. Hemoglobin 14.1, hematocrit 42.3, platelet count 400. Her electrolyte panel shows a BUN of 19 with creatinine 1.2, glucose is slightly elevated 203. Given her leukocytosis, I added blood cultures and a lactic acid. Lactic acid is normal at 1.5. Urinalysis negative for infection with WBC countof 0-5. 0 bacteria. I do not feel she has a urinary tract infection. On my interpretation of the x-rays of the abdomen, she has a large fecal burden with air dilation. I reviewed the radiology report which confirms my independent interpretation and comments on constipation and the fecal burden/retention. Given her leukocytosis and continued pain, she was administered morphine, and CT was obtained. I reviewed the radiology report of the CT of theabdomen and pelvis and she does have a fecal impaction with inflammation and thickening of the colon wall consistent with proctitis and colitis. At this point in time, I did perform digital rectal exam but was not going to perform fecal disimpaction as patient did not tolerated and I did not want to risk perforation. She was started on IV antibiotics in the form of Zosyn for her colitis and proctitis, and patient discussed with the hospitalist for admission. I discussed patient with Dr. Garrett who requested that I discussed patient withDr. Welch with general surgery. She requested that the patient be started onenemas and agrees with admission to medicine. Patient is in stable condition. History & Record Review Discussion w/independent historian: Patient Lab Data Attestation: I reviewed the patient's lab results. Labs: Laboratory Results - last 24 hr 11/25/24 11/25/24 11/25/24 09:40 11:20 12:16 WBC 27.0 H RBC 5.21 Hgb 14.1 Hct 42.3 MCV 81.2 MCH 27.1 MCHC 33.3 RDW Std Deviation 41.1 RDW Coeff of John 14.2 Plt Count 400 MPV 9.4 Immature Gran % (Auto) 0.700 Neut % (Auto) 79.5 H Lymph % (Auto) 11.4 L Bacon % (Auto) 8.0 Eos % (Auto) 0.1 Baso % (Auto) 0.3 Absolute Neuts (auto) 21.5 H Absolute Lymphs (auto) 3.09 Nucleated RBC % 0 Platelet Estimate A Sodium 135 Potassium 4.0 Chloride 97 L Carbon Dioxide 21.3 Anion Gap 17 H BUN 19 Creatinine 1.20 Estim Creat Clear Calc 86.69 Est GFR (MDRD) Non-Af 62 BUN/Creatinine Ratio 15.9 Glucose 203 H Lactic Acid 1.5 Calcium 9.6 Serum , Qual NEGATIVE Urine Color Yellow Urine Clarity Cloudy Urine pH 6.0 Ur Specific [place] 1.025 Urine Protein 30 H Urine Glucose (UA) Normal Urine Ketones 5 H Urine Occult Blood 25 H Urine Nitrite Negative Urine Bilirubin 1 H Urine Urobilinogen 1 H Ur Leukocyte Esterase Negative Urine RBC 0-5 SEEN Urine WBC 0-5 SEEN Ur Squamous Epith Cells 0-5 SEEN Amorphous Sediment 2+ URATE Urine Bacteria 0 SEEN Hyaline Casts 0-5 SEEN Urine Mucus 0 SEEN Radiography X-Ray: Read by ED Physician, Read by Radiologist and - (Constipation, large amount of stool in colon) Diagnostic Testing: Clinical Impression(s) from Imaging Studies Acute Abdomen Series 11/25/24 09:55 IMPRESSION: Fecal retention in the colon consistent with constipation. Reading Location: [facility] Abdomen/Pelvis CT 11/25/24 11:32 IMPRESSION: 1. Fecal impaction with apparent wall thickening of the distal colon and rectumsuggesting proctitis and colitis. Clinical correlation is recommended. 2. Hepatomegaly with fatty infiltration. Reading Location: [facility] Management Discussion w/another healthcare provider: Hospitalist (Dr. Rao) and Zoology Professor(Dr. Welch) Discharge Plan Dx/Rx/DC Orders Clinical Impression: Fecal impaction, Acute proctitis, Colitis Disposition Disposition: Acute Care Hospital [facility] What to do if you have Problems For any increased pain, shortness of breath, bleeding, nausea or vomiting, chestpain, or any unexpected problems, contact your Primary Care Provider. Call [facility] ([phone]) or report to the closest Emergency Room. Call 911 if necessary. 11/25/24 1345 <Electronically signed by Drew Hinson MD> Cosigner Signature (if applicable): CC: BROOKLYN Solorzano ~ Signed [facility] Work Phone: 1(873) 255-324305-17-2025 Discharge summary [facility] Medical Records Department [address] [place] [address] Emergency Department Summary 11/25/24 MR#: [id number] Acct: [id number] Name: GHISLAINE GIVENS Rep #:[id number] : 1990 34 From: Drew Hinson MD PCP: Amy Solorzano, [facility], [employer] SUPER[employer]OR[employer] Statu s:REG ER Location: ED HPI HPI - GI History of Present Illness Chief Complaint: Constipation Narrative Narrative: 34-year-old female past medical history of diabetes states that she gets constipation frequently for years presents with abdominal pain and cramping as well as constipation that she has had for the last few days. She relates history that 3 days prior to her taking a laxative, she was having problems withnot having a bowel movement. It was , 2 days ago when she took 4 Ex-Laxin the morning,and then that evening began having abdominal cramping. She states that she still feels like there is stool stuck but she is having multipleepisodes of diarrhea and watery stool. She states that when she gets cramping, it still feels like she may have a fecal impaction. She is experienced nausea andvomiting over the last 24 hours multiple times but no hematemesis. Currently, she is only dry heaving. She did not take her insulin today because she took her blood sugar and it was only 190. Additionally, she has not been able to eat today because of the dry heaving. Her cramping in the abdomen is intermittent. She denies any previous abdominal surgeries, no reason to be obstructed. While she thinks she may have IBS-see, she has been unable to see gastroenterology to confirm this diagnosis. Noexacerbating or alleviating factors. [facility] Medical History Wears glasses History of MRSA infection Borderline personality disorder Alcohol use Insulin dependent diabetes mellitus Dietary restriction Heartburn Smoker Shortness of breath on exertion Leg cramps Type 2 diabetes mellitus with peripheral neuropathy Neuropathy, diabetic Elevated serum creatinine Failure of outpatient treatment Nausea and vomiting Diabetes mellitus with diabetic polyneuropathy Type 2 diabetes mellitus with foot ulcer Anxiety Depression Constipation Asthma Diabetes Home Medications ?Medication ?Instructions ?Recorded ?Last Taken ?Type insulin glargine 100 unit/mL (3 20 unit subcut BID doreen betes 08/12/22 11/25/24 History mL) subcutaneous pen (Lantus Solostar U-100 Insulin) trazodone 300 mg tablet 200 mg PO QHS PRN insomnia 0 1/05/24 Unknown History albuterol sulfate 90 mcg/actuation 2 puff inhalation Q 4H PRN 11/25/24 Unknown History aerosol inhaler shortness of breath or wheez ing dulaglutide 4.5 mg/0.5 mL 4.5 mg subcut SA 11/25/24 History subcutaneous pen injector (Trulicity) Allergy/AdvReac Type Severity Reaction Status Date / Time No Known Allergies Allergy Verified 11/25/24 08:58 Family History Other Bleeding disorder Cancer Diabetes Hypertension Surgical History Hx of foot surgery Hx of foot surgery Social History Smoking Status: Current every day smoker tobacco type: cigarettes alcohol intake: never substance use type: does not use what type of physical activity do you participate in: none ROS ROS ED ROS Narrative Review of systems positive for diffuse, crampy abdominal pain, constipation withno bowel movement for the last 5 to 6 days although she is having diarrhea from taking a laxative. Positive nausea and vomiting, and dry heaving. No fevers orchills. No exacerbating or alleviating factors. EXAM Physical Exam Narrative Exam Narrative: Afebrile. Vital signs noted. Nontoxic-appearing. Cardiovascular examination reveals mild tachycardia. Lungs are clear to auscultation bilaterally. The abdomen is soft, nontender, without guarding or rebound. Positive bowel sounds. Neurological examination is nonfocal and nonlateralizing. Patient was previously tearful prior to examination. Const Vital Signs: 11/25/24 08:48 11/25/24 09:50 11/25/24 10:00 Temperature 96.8 F L 98.0 F 97.9 F Temperature Source Temporal Oral Temporal Pulse Rate 112 H 103 H 94 Respiratory Rate 20 H 19 H 17 Blood Pressure 121/91 H 130/91 H 122/91 H Blood Pressure Mean 101 104 101 Pulse Ox 99 96 92 Oxygen Delivery Method Room Air Room Air Room Air 11/25/24 11:00 11/25/24 12:00 Temperature 97.6 F L Temperature Source Temporal Pulse Rate 85 91 Respiratory Rate 16 Blood Pressure 124/90 H 123/85 H Blood Pressure Mean 101 97 Pulse Ox 94 95 Oxygen Delivery Method Room Air MDM MDM MDM Narrative Medical decision making narrative: The differential diagnosis includes but not limited to diabetic gastroparesis versus nonspecific abdominal pain versus obstruction versus constipation versus undiagnosed irritable bowel syndrome withconstipation. Comprehensive workup was pursued. Patient states her last menstrual period was approximately a week ago. I will obtain basic laboratory work including CBC and BMP to look for dehydration or other electrolyte imbalance given her stooling. I reviewed her prior ED visits and outpatient record and she has had multiple CTs in the past. I will obtain abdominal x-rays. She was given a bolus of normal saline and ondansetron. Regarding her abdominal pain and cramping, I discussed with her the use of an antispasmodic which could cause more constipation however. We will wait until further workup is pursued before administering any further analgesics. I do not feel narcotics are indicatedcurrently which can cause constipation as well. I reviewed her laboratory work and she has a leukocytosis of 27,000. When compared to other laboratories, she has been elevated just above 11 in the past,but not this high. Hemoglobin 14.1, hematocrit 42.3, platelet count 400. Her electrolyte panel shows a BUN of 19 with creatinine 1.2, glucose is slightly elevated 203. Given her leukocytosis, I added blood cultures and a lactic acid. Lactic acidis normal at 1.5. Urinalysis negative for infection with WBC countof 0-5. 0 bacteria. I do not feelshe has a urinary tract infection. On my interpretation of the x-rays of the abdomen, she has a large fecal burden with air dilation. I reviewed the radiology report which confirms my independent interpretation and comments on constipation and the fecal burden/retention. Given her leukocytosis and continued pain, she was administered morphine, and CT was obtained. I reviewed the radiology report of the CT of theabdomen and pelvis and she does have a fecal impaction with inflammation and thickening of the colon wall consistent with proctitis and colitis. At this point in time, I did perform digital rectal exam but was not goingto perform fecal disimpaction as patient did not tolerated and I did not want to risk perforation. She was started on IV antibiotics in the form of Zosyn for her colitis and proctitis, and patient discussed with the hospitalist for admission. I discussed patient with Dr. Garrett who requested that I discussed patient withDr. Welch with general surgery. She requested that the patient be started onenemas and agrees with admission to medicine. Patient is in stable condition. History & Record Review Discussion w/independent historian: Patient Lab Data Attestation: I reviewed the patient's lab results. Labs: Laboratory Results - last 24 hr 11/25/24 11/25/24 11/25/24 09:40 11:20 12:16 WBC 27.0 H RBC 5.21 Hgb 14.1 Hct 42.3 MCV 81.2 MCH 27.1 MCHC 33.3 RDW Std Deviation 41.1 RDW Coeff of John 14.2 Plt Count 400 MPV 9.4 Immature Gran % (Auto) 0.700 Neut % (Auto) 79.5 H Lymph % (Auto) 11.4 L Bacon % (Auto) 8.0 Eos % (Auto) 0.1 Baso % (Auto) 0.3 Absolute Neuts (auto) 21.5 H Absolute Lymphs (auto) 3.09 Nucleated RBC % 0 Platelet Estimate A Sodium 135 Potassium 4.0 Chloride 97 L Carbon Dioxide 21.3 Anion Gap 17 H BUN 19 Creatinine 1.20 Estim Creat Clear Calc 86.69 Est GFR (MDRD) Non-Af 62 BUN/Creatinine Ratio 15.9 Glucose 203 H Lactic Acid 1.5 Calcium 9.6 Serum , Qual NEGATIVE Urine Color Yellow Urine Clarity Cloudy Urine pH 6.0 Ur Specific [place] 1.025 Urine Protein 30 H Urine Glucose (UA) Normal Urine Ketones 5 H Urine Occult Blood 25 H Urine Nitrite Negative Urine Bilirubin 1 H Urine Urobilinogen 1 H Ur Leukocyte Esterase Negative Urine RBC 0-5 SEEN Urine WBC 0-5 SEEN Ur Squamous Epith Cells 0-5 SEEN Amorphous Sediment 2+ URATE Urine Bacteria 0 SEEN Hyaline Casts 0-5 SEEN Urine Mucus 0 SEEN Radiography X-Ray: Read by ED Physician, Read by Radiologist and - (Constipation, large amount of stool in colon) Diagnostic Testing: Clinical Impression(s) from Imaging Studies Acute Abdomen Series 11/25/24 09:55 IMPRESSION: Fecal retention in the colon consistent with constipation. Reading Location: [facility] Abdomen/Pelvis CT 11/25/24 11:32 IMPRESSION: 1. Fecal impaction with apparent wall thickening of the distal colon and rectumsuggesting proctitisand colitis. Clinical correlation is recommended. 2. Hepatomegaly with fatty infiltration. Reading Location: [facility] Management Discussion w/another healthcare provider: Hospitalist (Dr. Rao) and Zoology Professor(Dr. Welch) Discharge Plan Dx/Rx/DC Orders Clinical Impression: Fecal impaction, Acute proctitis, Colitis Disposition Disposition: Acute Care Hospital [facility] What to do if you have Problems For any increased pain, shortness of breath, bleeding, nausea or vomiting, chestpain, or any unexpected problems, contact your Primary Care Provider. Call [facility] ([phone]) or report tothe closest Emergency Room. Call 911 if necessary. 11/25/24 1345 Cosigner Signature (if applicable): CC: [place] [employer] SUPERVISOR-C Amy Solorzano ~ Signed [facility]05-17-2025 Radiology Diagnostic study note [facility] Imaging Services [address] [place] [address] Abdomen/Pelvis W IV Cont ONLY MR#: [id number] Acct: [id number] Name: GHISLAINE GIVENS Rep #: [id number] : 1990 F 34 From: Alicja Barfield MD PCP: [facility] Warren, SHIPFITTERS SUPERVISOR-C Status: REG ER Study:Abdomen/Pelvis W IV Cont ONLY Date of E xam: 11/25/24 Exam# [id number] Ordering Dr: Drew Hinson MD EXAM: CT Abdomen and Pelvis With Intravenous Contrast CLINICAL INDICATION: DIARRHEA, PAIN TECHNIQUE: Axial computed tomography images of the abdomen and pelvis with intravenous contrast. This CT exam was performed using one or more of the following dose reduction techniques: automated exposure control, adjustment of the mA and/or kV according to patient size, and/or use of iterative reconstruction technique. COMPARISON: CT Abdomen Pelvis dated 06/26/2023 FINDINGS: LUNG BASES: Unremarkable. No mass. No consolidation. ABDOMEN: LIVER: Hepatomegaly with fatty infiltration. GALLBLADDER AND BILE DUCTS: Unremarkable. No calcified stones. No ductal dilation. PANCREAS: Unremarkable. No mass. No ductal dilation. SPLEEN: Unremarkable. No splenomegaly. ADRENALS: Unremarkable. No mass. KIDNEYS AND URETERS: Unremarkable. No solid mass. No hydronephrosis. STOMACH AND BOWEL: Fecal impaction with apparent wall thickening of the distal colon and rectum suggesting proctitis and colitis. Clinical correlation is recommended. No obstruction. PELVIS: APPENDIX: No findings to suggest acute appendicitis. BLADDER: Unremarkable. No mass. REPRODUCTIVE: Unremarkable as visualized. ABDOMEN and PELVIS: INTRAPERITONEAL SPACE: Unremarkable. No free air. No significant fluid collection. BONES/JOINTS: No acute fracture. No dislocation. SOFT TISSUES: Unremarkable. VASCULATURE: Unremarkable. No abdominal aortic aneurysm. LYMPH NODES: Unremarkable. No enlarged lymph nodes. CT/Abdomen/Pelvis W IV Cont ONLY IMPRESSION: 1. Fecal impaction with apparent wall thickening of the distal colon and rectumsuggesting proctitisand colitis. Clinical correlation is recommended. 2. Hepatomegaly with fatty infiltration. Reading Location: [facility] CC: [facility] SH[employer]TER[employer] SUPERVISOR-C Amy Solorzano; Dr. Drew Hinson MD ~ Hearing Aid Assistant: Signed [facility]05-17-2025 Radiology Diagnostic study note [facility] Imaging Services [address], [place] [address] Acute Abdomen Inc Chest MR#: [id number] Acct: [id number] Name: GHISLAINE GIVENS Rep #: [id number] : 1990 F 34 From: Alicja Barfield MD PCP: Amy Solorzano [facility], [employer] SUPERVISOR-C Status: REG ER Study:Acute Abdomen Inc Chest Date of Exam: 11/25/24 Exam# [id number] Ordering Dr: Drew Hinson MD EXAM: XR Abdomen, 2 Views and XR Chest, 1 View CLINICAL INDICATION: PAIN TECHNIQUE: Frontal view of the chest, frontal view of the abdomen/pelvis and upright or decubitus view of the abdomen. COMPARISON: No relevant prior studies available. FINDINGS: LUNGS AND PLEURAL SPACES: Unremarkable. No consolidation. No pneumothorax. HEART: Unremarkable. No cardiomegaly. MEDIASTINUM: Unremarkable. Normal mediastinal contour. INTRAPERITONEAL SPACE: No free air. GASTROINTESTINAL TRACT: Fecal retention in the colon consistent with constipation. No dilation. BONES/JOINTS: Unremarkable. No acute fracture. RAD/Acute Abdomen Inc Chest IMPRESSION: Fecal retention in the colon consistent with constipation. Reading Location: [facility] CC: [facility] PATRICE Solorzano; Dr. Drew Hinson MD ~ Hearing Aid Assistant: Signed [facility]12-23-2024 NoteHNO ID: [id number] Author: IRAIS HANNA PA Service: ? Author Type: Physician Cardiovascular Disease Specialist Type: Progress Notes Filed: 07/03/2024 13:13 Note Text: This note was created using [employer]. Subjective Ghislaine Givens is a 34 year old female. HPI 34-year-old female presents for cough. Patient states she has had a cough for about a week. She was seen here a week ago and diagnosed with bronchopneumonia based on exam. Patient was treated with azithromycin and Tessalon Perles. Patient states cough resolved and then yesterday returned again. She denies any chest pain or shortness of breath. She does not really feel like she is wheezing. She does have history of asthma and has been using her inhaler. She states she has not had increase inhaler use. No vomiting or diarrhea. She denies any fevers. No nasal congestion. No other complaint. 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 MEDICATIONS benzonatate (TESSALON PERLE) 100 mg capsule Take 1 capsule by mouth three times a day as needed for cough for up to 7 days. acetaminophen (TYLENOL EXTRA STRENGTH) 500 mg tablet Take 2 tablets by mouth every 6 hours as needed for pain. metFORMIN (GLUCOPHAGE) 500 mg tablet Take 1 tablet by mouth twice daily with meals. losartan (COZAAR) 50 mg tablet Take 1 tablet by mouth once daily. prochlorperazine (COMPAZINE) 5 mg tablet Take 2 tablets by mouth every 6 hours as needed. polyethylene glycol 3350 (MIRALAX) 17 gram/dose powder Take 17 g by mouth once daily. Dissolve dose in 4 - 8 ounces of liquid and take as directed. Patient not started yet. traZODone HCl (DESYREL) 300 mg tablet Take 300 mg by mouth daily at bedtime. albuterol HFA (PROAIR HFA) 90 mcg/actuation inhaler Inhale 2 Puffs as instructed every 4 hours as needed. insulin glargine 100 unit/mL (3 mL) Inject 10 Units subcutaneously twice daily. bacitracin 500 unit/gram ointment Apply to affected area twice daily. dextromethorphan-guaiFENesin (MUCINEX DM) 30-600 mg per tablet Take 1 tablet by mouth two times a day as needed for cough for up to 7 days. azithromycin (ZITHROMAX Z-QUITA) 250 mg tablet Take 2 tablets (500 mg) by mouth on day 1, then take 1 tablet (250 mg) by mouth for 4 days. (Patient not taking: Reported on 07/03/2024) pantoprazole DR (PROTONIX) 40 mg tablet Take 1 tablet by mouth twice daily before meals (0600/1600). FAMILY HISTORY Problem Relation Age of Onset Diabetes Mother Hypertension Mother Heart Maternal Grandmother Heart Maternal Grandfather other (bipolar [Other]) Mother Heart Paternal Grandmother Hypertension Paternal Grandmother Diabetes Paternal Grandmother Diabetes Paternal Aunt Cancer Mother Lung Arthritis Paternal Aunt Social History Tobacco Use Smoking status: Every Day Current packs/day: 1.50 Average packs/day: 1.5 packs/day for 3.0 years (4.5 ttl pk-yrs) Types: Cigarettes Smokeless tobacco: Never Substance Use Topics Alcohol use: Not Currently Comment: rare Drug use: Not Currently Types: Marijuana Comment: Last 2 months ago Review of Systems Constitutional: Negative for chills and fever. HENT: Negative for congestion, ear pain and sore throat. Respiratory: Positive for cough. Negative for shortness of breath. Cardiovascular: Negative for chest pain. Gastrointestinal: Negative for diarrhea and vomiting. Objective BP 122/90 Pulse 104 Temp 36.1 ?C (97 ?F) (Left Tympanic) Resp 16 Wt 115.9 kg (255 lb 8.2 oz) LMP 06/20/2024 (Approximate) SpO2 100% BMI 40.02 kg/m? Physical Exam Vitals and nursing note reviewed. Constitutional: General: She is not in acute distress. Appearance: Normal appearance. She is not toxic-appearing. HENT: Right Ear: Tympanic membrane and ear canal normal. Left Ear: Tympanic membrane and ear canal normal. Nose: Nose normal. Mouth/Throat: Mouth: Mucous membranes are moist. Eyes: Conjunctiva/sclera: Conjunctivae normal. Cardiovascular: Rate and Rhythm: Normal rate and regular rhythm. Pulmonary: Effort: Pulmonary effort is normal. Breath sounds: Normal breath sounds. No wheezing, rhonchi or rales. Skin: General: Skin is warm and dry. Neurological: Mental Status: She is alert. Assessment and Plan ASSESSMENT/PLAN: 1. Acute cough - ICD9: 786.2, ICD10: R05.1 - XR CHEST 2V FRONTAL/LAT-low lung volumes. No acute radiographic abnormality. -Patient is a diabetic, unsure however sugars have been at home, but does take insulin regularly. No wheezing on exam today. Will hold off on prednisone at this time. -Reports feeling congested in chest. Rx for Mucinex given. -Recently finished azithromycin -Follow-up with PCP if no improvement.' Diagnosis and treatment plan were d (more content not included)...[facility]12-23-2024 History of Present illness Narrative* Irais Hanna PA - 07/03/2024 1:11 PM EST This note was created using [employer]. Subjective Ghislaine Givens is a 34 year old female. HPI 34-year-old female presents for cough. Patient states she has had a cough for about a week. Shewas seen here a week ago and diagnosed with bronchopneumonia based on exam. Patient was treated with azithromycin and Tessalon Perles. Patient states cough resolved and then yesterday returned again.She denies any chest pain or shortness of breath. She does not really feel like she is wheezing. She does have history of asthma and has been using her inhaler. She states she has not had increase inhaler use. No vomiting or diarrhea. She denies any fevers. No nasal congestion. No other complaint. 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 MEDICATIONS benzonatate (TESSALON PERLE) 100 mg capsule Take 1 capsule by mouth three times a day as needed forcough for up to 7 days. acetaminophen (TYLENOL EXTRA STRENGTH) 500 mg tablet Take 2 tablets by mouth every 6 hours as needed for pain. metFORMIN (GLUCOPHAGE) 500 mg tablet Take 1 tablet by mouth twice daily with meals. losartan (COZAAR) 50 mg tablet Take 1 tablet by mouth once daily. prochlorperazine (COMPAZINE) 5 mg tablet Take 2 tablets by mouth every 6 hours as needed. polyethylene glycol 3350 (MIRALAX) 17 gram/dose powder Take 17 g by mouth once daily. Dissolve dosein 4 - 8 ounces of liquid and take as directed. Patient not started yet. traZODone HCl (DESYREL) 300 mg tablet Take 300 mg by mouth daily at bedtime. albuterol HFA (PROAIR HFA) 90 mcg/actuation inhaler Inhale 2 Puffs as instructed every 4 hours as needed. insulin glargine 100 unit/mL (3 mL) Inject 10 Units subcutaneously twice daily. bacitracin 500 unit/gram ointment Apply to affected area twice daily. dextromethorphan-guaiFENesin (MUCINEX DM) 30-600 mg per tablet Take 1 tablet by mouth two times a day as needed for cough for up to 7 days. azithromycin (ZITHROMAX Z-QUITA) 250 mg tablet Take 2 tablets (500 mg) by mouth on day 1, then take 1tablet (250 mg) by mouth for 4 days. (Patient not taking: Reported on 07/03/2024) pantoprazole DR (PROTONIX) 40 mg tablet Take 1 tablet by mouth twice daily before meals (0600/1600). FAMILY HISTORY Problem Relation Age of Onset Diabetes Mother Hypertension Mother Heart Maternal Grandmother Heart Maternal Grandfather other (bipolar [Other]) Mother Heart Paternal Grandmother Hypertension Paternal Grandmother Diabetes Paternal Grandmother Diabetes Paternal Aunt Cancer Mother Lung Arthritis Paternal Aunt Social History Tobacco Use Smoking status: Every Day Current packs/day: 1.50 Average packs/day: 1.5 packs/day for 3.0 years (4.5 ttl pk-yrs) Types: Cigarettes Smokeless tobacco: Never Substance Use Topics Alcohol use: Not Currently Comment: rare Drug use: Not Currently Types: Marijuana Comment: Last 2 months ago Review of Systems Constitutional: Negative for chills and fever. HENT: Negative for congestion, ear pain and sore throat. Respiratory: Positive for cough. Negative for shortness of breath. Cardiovascular: Negative for chest pain. Gastrointestinal: Negative for diarrhea and vomiting. Objective BP 122/90 Pulse 104 Temp 36.1 C (97 F) (Left Tympanic) Resp 16 Wt 115.9 kg (255 lb 8.2 oz) LMP 06/20/2024 (Approximate) SpO2 100% BMI 40.02 kg/m Physical Exam Vitals and nursing note reviewed. Constitutional: General: She is not in acute distress. Appearance: Normal appearance. She is not toxic-appearing. HENT: Right Ear: Tympanic membrane and ear canal normal. Left Ear: Tympanic membrane and ear canal normal. Nose: Nose normal. Mouth/Throat: Mouth: Mucous membranes are moist. Eyes: Conjunctiva/sclera: Conjunctivae normal. Cardiovascular: Rate and Rhythm: Normal rate and regular rhythm. Pulmonary: Effort: Pulmonary effort is normal. Breath sounds: Normal breath sounds. No wheezing, rhonchi or rales. Skin: General: Skin is warm and dry. Neurological: Mental Status: She is alert. Assessment and Plan ASSESSMENT/PLAN: 1. Acute cough - ICD9: 786.2, ICD10: R05.1 - XR CHEST 2V FRONTAL/LAT-low lung volumes. No acute radiographic abnormality. -Patient is a diabetic, unsure however sugars have been at home, but does take insulin regularly. No wheezing on exam today. Will hold off on prednisone at this time. -Reports feeling congested in chest. Rx for Mucinex given. -Recently finished azithromycin -Follow-up with PCP if no improvement.' Diagnosis and treatment plan were discussed and questions were answered to the patient's satisfaction. Pt acknowledged understanding of concepts and follow up plan. Specific signs and symptoms that would indicate the need for higher level of care were discussed in detail warranting prompt ER evaluation. MIGUEL A Goldman documented in this encounterChildren[facility] History of Present illness Narrative* Luis Mayes, RT(R) - 07/03/2024 12:40 PM EST Radiology Service Progress Note PATIENT NAME: Ghislaine Givens DATE OF SERVICE: July 03, 2024 TIME: 12:58 PM PATIENT IDENTITY VERIFICATION COMPLETED USING TWO (2) IDENTIFIERS: Name and Date of confirmedby patient verbally. FALL SCREENING: Has the patient had 2 falls in the last year or 1 fall with injury or currently using an Ambulatory Assistive Device (Walker, Cane, Wheelchair, Crutches, etc.)? No PATIENT GENDER DATA: Female. status: : No status: NO. PATIENT RELEVANT IMPLANT DATA REVIEWED: Not Applicable PATIENT PRESENTS WITH AN IMPLANTABLE OR ATTACHED POLYMER SPECIALIST: No RADIOLOGY DEPARTMENT: General X-ray: Exam(s) Completed: Chest X-Ray PERIPHERAL IV DATA: Not applicable SIGNED BY: RT Los(R) July 03, 2024 12:58 PM documented in this encounterChildren'S [facility]12-23-2024 NoteHNO ID: [id number] Author: LUIS MAYES RT(Reji) Service: Radiology Author Type: Technologist Type: Progress Notes Filed: 07/03/2024 13:05 Note Text: Radiology Service Progress Note PATIENT NAME: Ghislaine Givens DATE OF SERVICE: July 03, 2024 TIME: 12:58 PM PATIENT IDENTITY VERIFICATION COMPLETED USING TWO (2) IDENTIFIERS: Name and Date of confirmed by patient verbally. FALL SCREENING: Has the patient had 2 falls in the last year or 1 fall with injury or currently using an Ambulatory Assistive Device (Walker, Cane, Wheelchair, Crutches, etc.)? No PATIENT GENDER DATA: Female. status: : No status: NO. PATIENT RELEVANT IMPLANT DATA REVIEWED: Not Applicable PATIENT PRESENTS WITH AN IMPLANTABLE OR ATTACHED POLYMER SPECIALIST: No RADIOLOGY DEPARTMENT: General X-ray: Exam(s) Completed: Chest X-Ray PERIPHERAL IV DATA: Not applicable SIGNED BY: RT Los(R) July 03, 2024 12:58 [facility]12-16-2024 NoteHNO ID: [id number] Author: FRANTZ AREVALO PA-C Service: ? Author Type: Physician Cardiovascular Disease Specialist Type: Progress Notes Filed: 06/26/2024 11:03 Note Text: This note was created using [employer]. Subjective Ghislaine Givens is a 34 year old female. Patient is a 34-year-old female who complains of worsening loose, productive cough that she has been experiencing for the past 10 days. Patient states that her symptoms initially presented with congestion, sinus pressure and sore throat, but she reports that the symptoms have largely resolved. Patient states that she has subsequently developed a worsening coarse cough. Patient does have asthma and states she is using her albuterol MDI as directed. Patient reports that her albuterol MDI is current and she does not require a refill of same. Patient reports no increased episodes of wheezing and denies dyspnea or shortness of breath. Patient has no history of COPD and does not smoke. Cough Review of Systems Respiratory: Positive for cough. All other systems reviewed and are negative. Objective BP 122/78 Pulse 117 Temp 36.3 ?C (97.4 ?F) (Tympanic) Resp 18 Wt 115.7 kg (255 lb 1.2 oz) LMP 06/14/2023 (Approximate) SpO2 97% BMI 39.95 kg/m? Physical Exam Vitals and nursing note reviewed. Constitutional: Appearance: Normal appearance. She is normal weight. HENT: Head: Normocephalic and atraumatic. Right Ear: Tympanic membrane, ear canal and external ear normal. Left Ear: Tympanic membrane, ear canal and external ear normal. Nose: Nose normal. Mouth/Throat: Mouth: Mucous membranes are moist. Pharynx: Oropharynx is clear. Eyes: Extraocular Movements: Extraocular movements intact. Conjunctiva/sclera: Conjunctivae normal. Pupils: Pupils are equal, round, and reactive to light. Cardiovascular: Rate and Rhythm: Normal rate and regular rhythm. Pulses: Normal pulses. Heart sounds: Normal heart sounds. Pulmonary: Effort: Pulmonary effort is normal. No respiratory distress. Breath sounds: No stridor. Rhonchi present. No wheezing or rales. Chest: Chest wall: No tenderness. Musculoskeletal: Cervical back: Normal range of motion and neck supple. Skin: General: Skin is warm and dry. Capillary Refill: Capillary refill takes less than 2 seconds. Neurological: General: No focal deficit present. Mental Status: She is alert and oriented to person, place, and time. Psychiatric: Mood and Affect: Mood normal. Behavior: Behavior normal. Thought Content: Thought content normal. Judgment: Judgment normal. Assessment and Plan Physical exam findings as noted above. Patient was provided with prescriptions for Zithromax 250 mg and Tessalon 100 mg. Patient is an insulin-dependent diabetic and a prescription for prednisone was withheld. Patient was very clearly instructed to report to an emergency department if she notes any acute worsening of her symptoms. Patient verbalizes excellent understanding of the instructions. CLINICAL IMPRESSION: Bronchopneumonia; Asthma ASSESSMENT/PLAN: 1. Bronchopneumonia - ICD9: 485, ICD10: J18.0 (primary diagnosis) - AZITHROMYCIN 250 MG TABLET - BENZONATATE 100 MG CAPSULE 2. Mild intermittent asthma, uncomplicated - ICD9: 493.90, ICD10: J45.20 MIGUEL A [facility]12-16-2024 History of Present illness Narrative* Frantz Arevalo PA-C - 06/26/2024 10:55 AM EST This note was created using [employer]. Subjective Ghislaine Givens is a 34 year old female. Patient is a 34-year-old female who complains of worsening loose, productive cough that she has been experiencing for the past 10 days. Patient states that her symptoms initially presented with congestion, sinus pressure and sore throat, but she reports that the symptoms have largely resolved. Patient states that she has subsequently developed a worsening coarse cough. Patient does have asthma and states she is using her albuterol MDI as directed. Patient reports that her albuterol MDI is current and she does not require a refill of same. Patient reports no increased episodes of wheezing and denies dyspnea or shortness of breath. Patient has no history of COPD and does not smoke. Cough Review of Systems Respiratory: Positive for cough. All other systems reviewed and are negative. Objective BP 122/78 Pulse 117 Temp 36.3 C (97.4 F) (Tympanic) Resp 18 Wt 115.7 kg (255 lb 1.2 oz) LMP 06/14/2023 (Approximate) SpO2 97% BMI 39.95 kg/m Physical Exam Vitals and nursing note reviewed. Constitutional: Appearance: Normal appearance. She is normal weight. HENT: Head: Normocephalic and atraumatic. Right Ear: Tympanic membrane, ear canal and external ear normal. Left Ear: Tympanic membrane, ear canal and external ear normal. Nose: Nose normal. Mouth/Throat: Mouth: Mucous membranes are moist. Pharynx: Oropharynx is clear. Eyes: Extraocular Movements: Extraocular movements intact. Conjunctiva/sclera: Conjunctivae normal. Pupils: Pupils are equal, round, and reactive to light. Cardiovascular: Rate and Rhythm: Normal rate and regular rhythm. Pulses: Normal pulses. Heart sounds: Normal heart sounds. Pulmonary: Effort: Pulmonary effort is normal. No respiratory distress. Breath sounds: No stridor. Rhonchi present. No wheezing or rales. Chest: Chest wall: No tenderness. Musculoskeletal: Cervical back: Normal range of motion and neck supple. Skin: General: Skin is warm and dry. Capillary Refill: Capillary refill takes less than 2 seconds. Neurological: General: No focal deficit present. Mental Status: She is alert and oriented to person, place, and time. Psychiatric: Mood and Affect: Mood normal. Behavior: Behavior normal. Thought Content: Thought content normal. Judgment: Judgment normal. Assessment and Plan Physical exam findings as noted above. Patient was provided with prescriptions for Zithromax 250 mgand Tessalon 100 mg. Patient is an insulin-dependent diabetic and a prescription for prednisone waswithheld. Patient was very clearly instructed to report to an emergency department if she notes anyacute worsening of her symptoms. Patient verbalizes excellent understanding of the instructions. CLINICAL IMPRESSION: Bronchopneumonia; Asthma ASSESSMENT/PLAN: 1. Bronchopneumonia - ICD9: 485, ICD10: J18.0 (primary diagnosis) - AZITHROMYCIN 250 MG TABLET - BENZONATATE 100 MG CAPSULE 2. Mild intermittent asthma, uncomplicated - ICD9: 493.90, ICD10: J45.20 Frantz Arevalo PA-C documented in this encounterChildren'S [facility]01-12-2024 Procedure [facility]12-21-2023 History of Present illness Narrative* Andres Galaviz APRN.[facility] - 07/01/2023 10:42 AM EST Images from the original note were not included. Subjective HPI Nontoxic-appearing female presents urgent care chief complaint eye pain. Duration of symptoms 1 day. Associated symptoms right eye pain and swelling redness. States does have some visual issues this morning. Has not use any OTC medications. No trauma. No flashes of light or floaters. Overall feels well. Past medical history prescription medication use allergies reviewed. 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 MEDICATIONS acetaminophen (TYLENOL EXTRA STRENGTH) 500 mg tablet Take 2 tablets by mouth every 6 hours as needed for pain. metFORMIN (GLUCOPHAGE) 500 mg tablet Take 1 tablet by mouth twice daily with meals. losartan (COZAAR) 50 mg tablet Take 1 tablet by mouth once daily. prochlorperazine (COMPAZINE) 5 mg tablet Take 2 tablets by mouth every 6 hours as needed. polyethylene glycol 3350 (MIRALAX) 17 gram/dose powder Take 17 g by mouth once daily. Dissolve dosein 4 - 8 ounces of liquid and take as directed. Patient not started yet. traZODone HCl (DESYREL) 300 mg tablet Take 300 mg by mouth daily at bedtime. albuterol HFA (PROAIR HFA) 90 mcg/actuation inhaler Inhale 2 Puffs as instructed every 4 hours as needed. insulin glargine 100 unit/mL (3 mL) Inject 10 Units subcutaneously twice daily. bacitracin 500 unit/gram ointment Apply to affected area twice daily. pantoprazole DR (PROTONIX) 40 mg tablet Take 1 tablet by mouth twice daily before meals (0600/1600). FAMILY HISTORY Problem Relation Age of Onset Diabetes Mother Hypertension Mother Heart Maternal Grandmother Heart Maternal Grandfather other (bipolar [Other]) Mother Heart Paternal Grandmother Hypertension Paternal Grandmother Diabetes Paternal Grandmother Diabetes Paternal Aunt Cancer Mother Lung Arthritis Paternal Aunt Social History Tobacco Use Smoking status: Every Day Packs/day: 1.50 Years: 3.00 Additional pack years: 0.00 Total pack years: 4.50 Types: Cigarettes Smokeless tobacco: Never Substance Use Topics Alcohol use: Not Currently Comment: rare Drug use: Not Currently Types: Marijuana Comment: Last 2 months ago BP 117/82 Pulse 91 Temp 36.1 C (97 F) Resp 18 Wt 93.4 kg (206 lb) LMP 06/14/2023 (Approximate) SpO2 100% BMI 32.26 kg/m Review of Systems Constitutional: Negative for chills, fever and malaise/fatigue. HENT: Negative for congestion, ear discharge, ear pain, sinus pain and sore throat. Eyes: Positive for pain and redness. Negative for blurred vision, double vision, photophobia and discharge. Respiratory: Negative for cough, hemoptysis, sputum production, shortness of breath, wheezing and stridor. Cardiovascular: Negative for chest pain. Gastrointestinal: Negative for abdominal pain, diarrhea, nausea and vomiting. Musculoskeletal: Negative for myalgias. Skin: Negative for itching and rash. Neurological: Negative for dizziness and headaches. Objective Physical Exam Constitutional: General: She is not in acute distress. Appearance: She is not toxic-appearing. HENT: Head: Normocephalic. Comments: Erythema edema noted highlighted area. Pain with palpation highlighted area. Nose: Nose normal. Eyes: Pupils: Pupils are equal, round, and reactive to light. Cardiovascular: Rate and Rhythm: Normal rate. Pulmonary: Effort: Pulmonary effort is normal. No respiratory distress. Musculoskeletal: Cervical back: Normal range of motion. Skin: General: Skin is warm and dry. Neurological: General: No focal deficit present. Mental Status: She is alert. ASSESSMENT/PLAN: 1. Pain of right eye - ICD9: 379.91, ICD10: H57.11 Risk factors diabetes and MRSA. Suspicious of blocked tear duct. With level of discomfort and visual issues recommended patient be seen by ophthalmology. Appointment scheduled today 115. Andres Galaviz APRN.AVIONIC TECHNICIAN [facility] Discharge summary Author Alex Christiansen [facility] June 26, 2023 6:14pm Note Date/Time June 26, 2023 12:09pm [facility] Medical Records Department [address] [place] [address] Emergency Department Summary 06/26/23 MR#: [id number] Acct: [id number] Name: GHISLAINE GIVENSREBA Rep #:[id number] : 1990 33 From: Taiwo Chen MD PCP: Dr. Sophy Gibbons Status:REG ER Location: ED HPI HPI - GI History of Present Illness Chief Complaint: Abd Pain Informant: patient Abdominal Pain/Flank Pain Onset: Days (Several) Context: Gradual Onset Timing: Continuous Quality: Aching Location: Diffuse Current Severity: Severe Maximum Severity: Severe Worsened by: Nothing Relieved by: Nothing Nausea/Vomiting/Emesis GI Symptom: Positive for Nausea and Vomiting Onset: Days (Several) Quality: Positive for Nonbilious and Blood streaks; Negative for Coffee ground Severity: Severe Diarrhea/Melena/Hematochezia GI Symptom: Negative for Diarrhea, Melena or Hematochezia Associated Symptoms Associated Symptoms: Negative for Dysuria, Frequency, Hematuria or Urgency Narrative Narrative: Patient presents 24 hours after her last visit here for the same thing, diffuse abdominal pain and intractable vomiting. Now, with bits of blood. She states I hope I do not have to deal with this for months like I did last time. Was trying to get in to see gastroenterology, but has not been seen yet. She statesthe pain started everywhere and continues to be everywhere. She was doing better apparently at discharge from the ER yesterday but states since being at home she has continued to vomit and have severe pain despite the prescription for oral promethazine, which she admits she did not attempt to obtain from the pharmacy. She denies any other new symptoms. [facility] Medical History Anxiety Asthma Constipation Depression Diabetes Diabetes mellitus with diabetic polyneuropathy Elevated serum creatinine Failure of outpatient treatment Hypertension Nausea and vomiting Neuropathy, diabetic Type 2 diabetes mellitus with foot ulcer Type 2 diabetes mellitus with peripheral neuropathy Home Medications albuterol sulfate 90 mcg/actuation aerosol inhaler (Ventolin HFA) 1 inh inhalation Q4H SOB 04/06/22 [History Last Taken 06/24/22] insulin glargine 100 unit/mL (3 mL) subcutaneous pen (Lantus Solostar U-100 Insulin) 15 unit subcut BID diabetes 08/12/22 [History Last Taken 06/25/23] hyoscyamine sulfate 0.125 mg sublingual tablet (Levsin/SL) 0.125 mg PO TID PRN abdominal pain #10 tabs 01/07/23 [Rx Last Taken Unknown] bisacodyl 10 mg rectal suppository (Dulcolax (bisacodyl)) 10 mg AZ DAILY 3 days #12 ea 01/15/23 [Rx Last Taken Unknown] acetaminophen 325 mg tablet 650 mg (2 x 325 mg) PO Q6H PRN PRN Pain 1-10 Or Fever >100.7 #0 tabs 05/09/23 [Rx Last Taken Unknown] dicyclomine 20 mg tablet 20 mg PO TID PRN abdominal pain #30 tabs 05/09/23 [Rx Last Taken Unknown] levofloxacin 750 mg tablet 750 mg PO DAILY #12 tabs 05/09/23 [Rx Last Taken Unknown] metoclopramide HCl 5 mg tablet (Reglan) 5 mg PO Q6H PRN nausea and vomiting 3 days #20 tabs 05/09/23 [Rx Last Taken Unknown] ondansetron HCl 8 mg tablet 8 mg PO Q8H 5 days #15 tabs 05/09/23 [Rx Last Taken Unknown] promethazine 25 mg tablet 25 mg PO TID PRN nausea and vomiting #15 tabs 06/25/23[Rx Last Taken Unknown] Allergy/AdvReac Type Severity Reaction Status Date / Time No Known Allergies Allergy Verified 06/26/23 11:33 Family History Other Bleeding disorder Cancer Diabetes Hypertension Surgical History Hx of foot surgery Social History Smoking Status: Current every day smoker tobacco type: cigarettes alcohol intake: never substance use type: does not use what type of physical activity do you participate in: none ROS ROS ED Constitutional Constitutional ED: Denies chills or fever(s) Eyes Eyes: Denies change in vision or diplopia ENT ENT ED: Denies rhinorrhea or sore throat Cardiovascular Cardiovascular: Denies chest pain or palpitations Respiratory/Chest Respiratory/Chest: Denies cough or dyspnea Gastrointestinal Gastrointestinal: Reports abdominal pain, constipation, hematemesis, nausea and vomiting; Denies diarrhea or hematochezia Genitourinary Genitourinary ED: Denies dysuria or hematuria Musculoskeletal Musculoskeletal: Denies back pain or neck pain Integumentary Denies abscess or rash Neurologic Neurologic: Denies headache(s), paresthesias or weakness Psychiatric Psychiatric: Reports anxiety; Denies suicidal thoughts EXAM Physical Exam Const Vital Signs: 06/26/23 11:30 06/26/23 15:48 Temperature 97 F L Temperature Source Temporal Pulse Rate 95 Respiratory Rate 20 H 18 Blood Pressure 135/120 H Blood Pressure Mean 125 Pulse Ox 99 Oxygen Delivery Method Room Air Room Air Positive well nourished, well developed and obese General Appearance ED: well developed and NAD Nutritional Appearance: obese HEENT Reports moist mucous membranes normocephalic and atraumatic Eyes PERRL and EOMs intact bilaterally Neck full ROM and supple Resp normal respiratory effort and clear to auscultation bilaterally Cardio regular rate, regular rhythm and no murmurs GI non-distended GI Narrative: Diffuse tenderness and voluntary guarding no rebound tenderness Auscultation: hypoactive bowel sounds Palpation: soft Back/Spine no CVA tenderness General Back: other FROM Extremity normal to inspection General Extremety ED: Negative for edema, pulses abnormal or tenderness General Extremity: Negative for edema or pulses abnormal Neuro oriented x3, CN's II-XII intact bilaterally and no sensory deficits noted Sensorium / Orientation: awake and alert Motor Exam: strength 5/5 throughout Psych Attitude: agitated Mood & Affect: anxious Skin no rashes or lesions noted and no wounds MDM MDM MDM Narrative Medical decision making narrative: I did review the patient's ER visit from yesterday. I repeated some of his labswhich look good, there is no leukocytosis, and obtained a CT which is completelynormal I reviewed the images and the interpretation which I agree with. Despitegiving the patient Zofran and morphine for her pain, she was still rolling around nauseated and very agitated. It is thought that Thorazine may help all of this including the nausea so she was given that next, in addition to alternative analgesics since morphine did not appear to help. I discussed with the patient that her workup is negative, but that does not meanthat nothing is wrong and she may have some type of functional GI disorder, it is also possible this could be psychogenic or cyclic vomiting syndrome although I am not able to rule any of this in or out here in the emergency department. In looking at old records it seems that she has had this while in the hospital before, had a gastric emptying study that was unremarkable. Yesterday urine drug screen was obtained and was negative for cannabis (although positive for MDMA), given her history of use and other physicians that have discussed cannabis hyperemesis syndrome being in the differential diagnosis for her at prior encounters, so that does not need to be repeated at this time. Before getting the Thorazine, she was still continuing to vomit profusely, although most of it was dry heaving. After the Thorazine infusion was completedshe was reevaluated, she is sleeping and difficult to arouse. Therefore at thistime she will continue to be observed until she is alert enough to perform a p.o. challenge and to reevaluate. Checked out to the oncoming ED physician at shift change for reevaluation. History & Record Review Additional record(s) reviewed:: Prior inpatient record and Prior ED visit Lab Data Attestation: I reviewed the patient's lab results. Labs: Laboratory Results - last 24 hr 06/26/23 12:15 WBC 8.6 RBC 4.31 Hgb 11.6 L Hct 36.5 L MCV 84.7 MCH 26.9 L MCHC 31.8 L RDW Std Deviation 42.7 RDW Coeff of John 13.7 Plt Count 464 H MPV 9.3 Immature Gran % (Auto) 0.700 Neut % (Auto) 63.6 Lymph % (Auto) 30.6 Bacon % (Auto) 4.3 Eos % (Auto) 0.2 Baso % (Auto) 0.6 Absolute Neuts (auto) 5.5 Absolute Lymphs (auto) 2.63 Nucleated RBC % 0 Sodium 136 Potassium 3.8 Chloride 102 Carbon Dioxide 26.0 Anion Gap 8 BUN 10 Creatinine 0.88 Estim Creat Clear Calc 86.71 Est GFR (MDRD) Af Amer 97 Est GFR (MDRD) Non-Af 80 BUN/Creatinine Ratio 11.4 Glucose 228 H Calcium 9.5 Total Bilirubin 0.30 AST 8 L ALT 15 Alkaline Phosphatase 135 H Total Protein 8.4 H Albumin 3.4 Globulin 5.0 H Albumin/Globulin Ratio 0.7 L Radiography Diagnostic Testing: Clinical Impression(s) from Imaging Studies Abdomen/Pelvis CT 06/26/23 12:01 IMPRESSION: No acute intra-abdominal process. Electronically Signed: Ellen Kevin MD at 13:36 EST , Discharge Plan Triage Chief Complaint: Abd Pain ED Provider: Taiwo Chen Dx/Rx/DC Orders Clinical Impression: Diffuse abdominal pain, Intractable nausea and vomiting Instructions: ED Vomiting (Adult) Prescriptions: No Action albuterol sulfate [Ventolin HFA] 90 mcg/actuation HFA aerosol inhaler 1 inh INHALATION Q4H insulin glargine [Lantus Solostar U-100 Insulin] 100 unit/mL (3 mL) insulin pen 15 unit SUBCUT BID Patient Comments: inject 20 units subcutaneous twice daily bisacodyl [Dulcolax (bisacodyl)] 10 mg suppository 10 mg AZ DAILY 3 Days Qty: 12 0RF Rx Instructions: Hold for diarrhea acetaminophen 325 mg Tablet 650 mg PO Q6H PRN PRN (Reason: Pain 1-10 Or Fever >100.7) Qty: 0 0RF ondansetron HCl 8 mg tablet 8 mg PO Q8H 5 Days Qty: 15 0RF Rx Instructions: 1st dose 1-2 hr before radiation metoclopramide HCl [Reglan] 5 mg tablet 5 mg PO Q6H PRN (Reason: nausea and vomiting) 3 Days Qty: 20 0RF dicyclomine 20 mg tablet 20 mg PO TID PRN (Reason: abdominal pain) Qty: 30 0RF levofloxacin 750 mg tablet 750 mg PO DAILY Qty: 12 0RF hyoscyamine sulfate [Levsin/SL] 0.125 mg tablet, sublingual 0.125 mg PO TID PRN (Reason: abdominal pain) Qty: 10 0RF promethazine 25 mg tablet 25 mg PO TID PRN (Reason: nausea and vomiting) Qty: 15 0RF Primary Care Provider: Sophy Gibbons Referrals: Sophy Gibbons [Primary Care Provider] - What to do if you have Problems For any increased pain, shortness of breath, bleeding, nausea or vomiting, chestpain, or any unexpected problems, contact your Primary Care Provider. Call [facility] ([phone]) or report to the closest Emergency Room. Call 911 if necessary. 06/26/23 1641 <Electronically signed by Taiwo Chen MD> Cosigner Signature (if applicable): CC: Dr. Sophy Gibbons ~ Signed ADDENDUM by Dr. Alex Christiansen DO on 06/26/23 at 1814 Patient signed out to me for follow-up. She is here for nausea and vomiting. She was very sleepy after getting treated for this. She was reevaluated at 6:14PM and had tolerated crackers and giuseppe dwight. Since she is doing better she will be discharged home. She is a previous prescription for Phenergan which hasbeen prescribed to her previously. She was instructed to fill this. Patient discharged stable condition. 06/26/231813<Electronically signed by Alex Christiansen DO> Cosigner Signature (if applicable): cc: Dr. Sophy Gibbons ~* Signed [facility] Work Phone: 1(221) 389-831710-29-2023 Progress note Author Rickey Gifford [facility] May 09, 2023 11:46am Note Date/Time May 09, 2023 7 :55am [facility] Medical Records Department [address] [place] [id number] Progress Note - Hospitalist 05/09/23 0752 MR#: [id number] Acct: [id number] Name: GHISLAINE GIVENS Rep #:[id number] : 1990 33 From: Rickey Gifford DO PCP: Care Physician,No Primary Status :ADM IN Location: [place] [address] Reason for Visit Reason for Visit: Diagnoses Gas gangrene (05/04/23) Type 2 diabetes mellitus with diabetic polyneuropathy (05/04/23) Type 2 diabetes mellitus with other skin complications (05/04/23) Local infection of the skin and subcutaneous tissue, unspecified (05/04/23) Non-pressure chronic ulcer of other part of right foot with fat layer exposed (05/04/23) Short Achilles tendon (acquired), right ankle (05/04/23) Nausea with vomiting, unspecified (05/04/23) Subjective Subjective Still with severe abdominal pain. Objective Data Objective Data Vital Signs: Vital Signs Temp Pulse Resp BP Pulse Ox O2 Del Method O2 Flow Rate 36.7 C 77 18 149/107 H 100 Room Air 96 05/09/23 07:37 05/09/23 07:37 05/09/23 07:37 05/09/23 07:37 05/09/23 07:37 05/09/23 07:37 05/04/23 15:23 Oxygen Flow Rate (L/min) 96 Oxygen Delivery Method Room Air Weight: 94.2 kg Body Mass Index (BMI) 33.5 Intake & Output: Intake and Output for Last 24 Hours 05/07/23 05/08/23 05/09/23 23:59 23:59 23:59 Intake Total 950 / 950 1517.29 / 1717.29 400 / 400 Output Total 600 / 600 Balance 950 / 750 917.29 / 1117.29 400 / 400 Lab / Micro Data 05/06/23 06:05 05/07/23 06:00 Labs: Laboratory Results - last 24 hr 05/08/23 11:40: POC Glucose 164 H 05/08/23 16:04: POC Glucose 148 H 05/08/23 22:54: POC Glucose 135 H 05/09/23 06:34: POC Glucose 162 H Micro: Microbiology 05/04/23 17:40 Wound - Right Foot Gram Stain - Final 05/04/23 17:40 Wound - Right Foot Wound Culture - Final Streptococcus dysgalactiae dys 05/04/23 17:40 Tissue - Right Foot Gram Stain - Final 05/04/23 17:40 Tissue - Right Foot Wound Culture - Final Streptococcus dysgalactiae equ Staphylococcus epidermidis Staphylococcus hominis hominis 05/04/23 17:40 Wound - Right Foot Gram Stain - Final 05/04/23 17:40 Wound - Right Foot Wound Culture - Final Streptococcus dysgalactiae equ Staphylococcus warneri 05/04/23 12:10 Wound - Right Foot Gram Stain - Final 05/04/23 12:10 Wound - Right Foot Wound Culture - Final Streptococcus dysgalactiae equ Coag Negative Staph Staphylococcus simulans 05/04/23 12:00 Blood Culture (Wb) - Anticubital Left Blood Culture - Preliminary No growth in 48 hours. 05/04/23 11:40 Blood Culture (Wb) - Anticubital Left Blood Culture - Preliminary No growth in 48 hours. Radiography Diagnostic Testing: Radiology Impression KUB X-Ray 05/08/23 10:50 IMPRESSION: Fecal stasis. Electronically Signed: Frantz Maynard MD at 11:22 EDT , Physical Exam Const alert Constitutional Narrative: tearful. sitting up in bed. HEENT head/scalp atraumatic and moist oral mucous membranes GI GI Narrative: soft, ND, no masses. exquisitely TTP even with distraction. Assessment & Plan Assessment/Plan (1) Diabetic foot infection: PLAN: With gas gangrene, abscess, full thickness ulceration with fat exposed. Pt underwent incision and drainage right foot on 05/04. Antibiotics with vancomycin and also add piperacillin/tazobactam. Follow-up cultures. Thus far showing Group C Strep, will vancomycin for now. Nonweightbearing on right lower extremity until okayed by podiatry. MRI showed ulcer at the plantar aspect of the forefoot with suspected adjacent abscess Further mgmt per podiatry. Pt had bedside I+D that showed scant purulent drainage. Definite procedure planned for 05/07 with excisional debridement w washout, delay primary closure. Cx showing Strep dysgalactiae, S. epi, Staph hominis. Can discharge with amoxicillin/CA and levofloxacin. (2) Nausea and vomiting: PLAN: Chronic Has had a GES that was reportedly negative. I told he and her significant other that it is unclear what it could be. It could be gastroparesis v other. It may be reasonable to be on a gluten-free diet to see that would help. The significant other is aware of the diet because he has family members who are on a gluten-free diet. 05/08: Abdominal pain is worse. Exam is pretty unremarkable. Patient reportedly has had an extensive work-up. We will see how she does if this can improve or not. Abdominal xray showed constipation. Pt had Miralax and dulcolax already ordered, but was not taking. 05/09: exam benign except for the pain. Data for OSH review through [facility]: * CT A/P on 03/03/23: Unremarkable. * Abdominal Xray 03/02/23: No acute findings. * EGD 02/19/23: esophageal ulcer. mild gastritis. normal duodenum. * Pelvic US 02/11/23: Normal * Abdominal US 02/11/23: fatty liver. No acute findings. * Gastric emptying study 02/11/23: Initially rapid gastric emptying, but remainder of ananya examination is normal w/o evidence of gastroparesis. * CT A/P 01/10/23: left hydrosalpinx. Mildly dilated CBD. PLAN: Plan Chronic conditions * Diabetes mellitus type 2: fair control. Continue with glargine. Hold metformin for the time being. Add sliding scale insulin. * Diabetic neuropathy VTE prophylaxis with enoxaparin. Greater than 55 minutes of which greater than for present time was discussing case with the patient at bedside in regards to her benign exam and negative work-up here but also that she does have constipation. Also reviewing records through [employer]. Charges/Coding Visit Charges Inpatient E&M: 47213 Subs Hosp L3 05/09/23 1146 <Electronically signed by Rickey Gifford DO> Cosigner Signature (if applicable): CC: ~ Signed [facility] Work Phone: [phone] 110-182610-29-2023 Progress note Author Abdirizak Forrest [facility] May 09, 2023 10:47am Note Date/Time May 09, 2023 1 0:19am [facility] Medical Records Department [address] [place] [address] Progress Note - Surgery 05/09/23 1018 MR#: [id number] Acct: [id number] Name: GHISLAINE GIVENS Rep #:[id number] : 1990 33 From: Abdirizak Gupta PM PCP: Care Physician,No Primary Status :ADM IN Location: [facility] [id number] Subjective Subjective Ms. Givens is a 33-year-old diabetic female seen at bedside today for postop evaluation. Patient admits she is having no pain to the right lower extremity to the level of the Achilles tendon. She has kept her AO splint clean dry and intact. She is nonweightbearing to the right lower extremity with walker. She denies trauma. Denies constitutional symptoms. No other pedal complaints at this time. Objective Data Objective Data Vital Signs: Vital Signs Temp Pulse Resp BP Pulse Ox O2 Del Method O2 Flow Rate 98.1 F 77 18 149/107 H 100 Room Air 96 05/09/23 07:37 05/09/23 07:37 05/09/23 07:37 05/09/23 07:37 05/09/23 07:37 05/09/23 07:37 05/04/23 15:23 Oxygen Flow Rate (L/min) 96 Oxygen Delivery Method Room Air Weight: 94.2 kg Body Mass Index (BMI) 33.5 Intake & Output: Intake and Output for Last 24 Hours 05/07/23 05/08/23 05/09/23 23:59 23:59 23:59 Intake Total 950 / 950 1517.29 / 1717.29 400 / 400 Output Total 600 / 600 Balance 950 / 750 917.29 / 1117.29 400 / 400 Lab / Micro Data Attestation: I reviewed the patient's lab results. 05/06/23 06:05 05/07/23 06:00 Labs: Laboratory Results - last 24 hr 05/08/23 11:40: POC Glucose 164 H 05/08/23 16:04: POC Glucose 148 H 05/08/23 22:54: POC Glucose 135 H 05/09/23 06:34: POC Glucose 162 H Micro: Microbiology 05/04/23 17:40 Wound - Right Foot Gram Stain - Final 05/04/23 17:40 Wound - Right Foot Wound Culture - Final Streptococcus dysgalactiae dys 05/04/23 17:40 Tissue - Right Foot Gram Stain - Final 05/04/23 17:40 Tissue - Right Foot Wound Culture - Final Streptococcus dysgalactiae equ Staphylococcus epidermidis Staphylococcus hominis hominis 05/04/23 17:40 Wound - Right Foot Gram Stain - Final 05/04/23 17:40 Wound - Right Foot Wound Culture - Final Streptococcus dysgalactiae equ Staphylococcus warneri 05/04/23 12:10 Wound - Right Foot Gram Stain - Final 05/04/23 12:10 Wound - Right Foot Wound Culture - Final Streptococcus dysgalactiae equ Coag Negative Staph Staphylococcus simulans 05/04/23 12:00 Blood Culture (Wb) - Anticubital Left Blood Culture - Preliminary No growth in 48 hours. 05/04/23 11:40 Blood Culture (Wb) - Anticubital Left Blood Culture - Preliminary No growth in 48 hours. Radiography Diagnostic Testing: Radiology Impression KUB X-Ray 05/08/23 10:50 IMPRESSION: Fecal stasis. Electronically Signed: Frantz Maynard MD at 11:22 EDT , Physical Exam Narrative Neurovascular is unchanged. Nonpitting edema appreciated to the distal and proximal aspect of the right AO splint. The AO splint to the right lower extremity. Active and passive range of motion to the digits is pain-free. No pain with calf compression. He stated to the subfifth metatarsal of the left foot. Elongated toenails 1 through 5 bilateral. Assessment & Plan Assessment/Plan (1) Gas gangrene: PLAN: Patient was examined and evaluated. All findings were discussed with the patient. All questions were answered to the patient satisfaction. Right lower extremity AO splint was left clean dry and intact. Patient is to benonweightbearing to the right foot. Full weightbearing to left lower extremity with assistance of walker or crutches. Sx Cx: Pre-Lavage Cx: S. dygalactiae, S epidermidis, S hominis mominis Post-Lavage Cx: S. dygalactiae Medicine: On board, medical management, IV antibiotics Vancomycin and Zosyn. Patient is cleared from a podiatry perspective for discharge once cleared by medicine team. Recommend 2 weeks of oral antibiotics based on final cultures and sensitivity. Podiatry to sign off and follow from a distance. Please reconsult with any questions or concerns. Patient will follow-up 1 week postdischarge in private office. Thank you for letting me be involved in the patient's care! (2) Non-pressure chronic ulcer of other part of right foot with fat layer exposed: (3) Tightness of right heel cord: (4) Type 2 diabetes mellitus with peripheral neuropathy: 05/09/23 1047 <Electronically signed by Abdirizak Forrest DPM> Cosigner Signature (if applicable): CC: ~ Signed [facility] Work Phone: [phone] 149-333910-28-2023 Progress note Author Rickey Gifford [facility] May 08, 2023 10:48am Note Date/Time May 08, 2023 7 :51am [facility] Medical Records Department [address] [place] [address] [place] [address] Progress Note - Hospitalist 05/08/23 0749 MR#: [id number] Acct: [id number] Name: GHISLAINE GIVENS Rep #:[id number] : 1990 33 From: Rickey Gifford DO PCP: Care Physician,No Primary Status :ADM IN Location: [facility] [id number] Reason for Visit Reason for Visit: Diagnoses Gas gangrene (05/04/23) Type 2 diabetes mellitus with diabetic polyneuropathy (05/04/23) Type 2 diabetes mellitus with other skin complications (05/04/23) Local infection of the skin and subcutaneous tissue, unspecified (05/04/23) Non-pressure chronic ulcer of other part of right foot with fat layer exposed (05/04/23) Nausea with vomiting, unspecified (05/04/23) Subjective Subjective Complains of severe abdominal pain and retching. Objective Data Objective Data Vital Signs: Vital Signs Temp Pulse Resp BP Pulse Ox O2 Del Method O2 Flow Rate 36.7 C 83 20 H 140/102 H 99 Room Air 96 05/08/23 03:49 05/08/23 03:49 05/08/23 03:49 05/08/23 03:49 05/08/23 03:49 05/08/23 03:49 05/04/23 15:23 Oxygen Flow Rate (L/min) 96 Oxygen Delivery Method Room Air Weight: 94.2 kg Body Mass Index (BMI) 33.5 Intake & Output: Intake and Output for Last 24 Hours 05/06/23 05/07/23 05/08/23 23:59 23:59 23:59 Intake Total 2659.00 / 2859.00 950 / 950 50 / 50 Output Total 1300 / 1300 400 / 400 Balance 1359.00 / 1559.00 950 / 750 -350 / -350 Lab / Micro Data 05/06/23 06:05 05/07/23 06:00 Labs: Laboratory Results - last 24 hr 05/07/23 11:16: POC Glucose 125 H 05/07/23 15:57: POC Glucose 102 05/07/23 16:38: POC Glucose 102 05/07/23 20:30: POC Glucose 189 H 05/08/23 05:18: POC Glucose 158 H Micro: Microbiology 05/04/23 12:10 Wound - Right Foot Gram Stain - Final 05/04/23 12:10 Wound - Right Foot Wound Culture - Preliminary Beta streptococcus Coag Negative Staph Gram positive organism 05/04/23 17:40 Tissue - Right Foot Gram Stain - Final 05/04/23 17:40 Tissue - Right Foot Wound Culture - Preliminary Beta streptococcus Coag Negative Staph Coag Negative Staph#2 05/04/23 17:40 Wound - Right Foot Gram Stain - Final 05/04/23 17:40 Wound - Right Foot Wound Culture - Preliminary Beta streptococcus Gram positive organism 05/04/23 17:40 Wound - Right Foot Gram Stain - Final 05/04/23 17:40 Wound - Right Foot Wound Culture - Preliminary Streptococcus dysgalactiae equ Staphylococcus species 05/04/23 17:40 Wound - Right Foot Anaerobic Culture - Preliminary 05/04/23 12:00 Blood Culture (Wb) - Anticubital Left Blood Culture - Preliminary No growth in 48 hours. 05/04/23 11:40 Blood Culture (Wb) - Anticubital Left Blood Culture - Preliminary No growth in 48 hours. Physical Exam Const Constitutional Narrative: Crying. Was able to turn on her back. Resp normal respiratory effort, no retractions, no use of accessory muscles and clearto auscultation bilaterally Cardio regular rate, regular rhythm, S1 normal heart sound and S2 normal heart sound GI normal to inspection, nondistended, normoactive bowel sounds, soft to palpation and non-distended GI Narrative: Abdomen is soft but exquisitely tender just to the mild palpation of her skin. Neuro Sensorium / Orientation: awake and alert Psych Mood & Affect: anxious Assessment & Plan Assessment/Plan (1) Diabetic foot infection: PLAN: With gas gangrene, abscess, full thickness ulceration with fat exposed. Pt underwent incision and drainage right foot on 05/04. Antibiotics with vancomycin and also add piperacillin/tazobactam. Follow-up cultures. Thus far showing Group C Strep, will vancomycin for now. Nonweightbearing on right lower extremity until okayed by podiatry. MRI showed ulcer at the plantar aspect of the forefoot with suspected adjacent abscess Further mgmt per podiatry. Pt had bedside I+D that showed scant purulent drainage. Definite procedure planned for 05/07 with excisional debridement w washout, delay primary closure. Cx showing Strep dysgalactiae and staph sp. Follow up cultures. (2) Nausea and vomiting: PLAN: Chronic Has had a GES that was reportedly negative. I told he and her significant other that it is unclear what it could be. It could be gastroparesis v other. It may be reasonable to be on a gluten-free diet to see that would help. The significant other is aware of the diet because he has family members who are on a gluten-free diet. 05/08: Abdominal pain is worse. Exam is pretty unremarkable. Will check an abdominal x-ray. Patient reportedly has had an extensive work-up. We will see how she does if this can improve or not. PLAN: Plan Chronic conditions * Diabetes mellitus type 2: fair control. Continue with glargine. Hold metformin for the time being. Add sliding scale insulin. * Diabetic neuropathy VTE prophylaxis with enoxaparin. Charges/Coding Visit Charges Inpatient E&M: 36801 Subs Hosp L2 05/08/23 1048 <Electronically signed by Rickey Gifford DO> Cosigner Signature (if applicable): CC: ~ Signed [facility] Work Phone: 1([phone]) 349-874710-28-2023 Progress note Author Abdirizak Forrest [facility] May 08, 2023 10:31am Note Date/Time May 08, 2023 9 :18am [facility] Medical Records Department [address] [place] [address] Progress Note - Surgery 05/08/23916 MR#: [id number] Acct: [id number] Name: GHISLAINE GIVENS Rep #:[id number] : 1990 33 From: Abdirizak Gupta PM PCP: Care Physician,No Primary Status :ADM IN Location: MS3 [id number] Subjective Subjective Mrs. Givens is a 33-year-old diabetic female seen at bedside in a for day 1 postop. Patient is status post delayed primary closure with tendo Achilles lengthening and application of AO splint to the right lower extremity. Patient is to having some pain to the posterior aspect of her right ankle. This is mostlikely from the tendo Achilles lengthening. Patient does admit to having some discomfort to her stomach and has vomited since surgery. She relates this to a past illness that she was dealing with the same symptoms that lasted for approximately 3 to 5 months. She was never fully diagnosed for the condition and is unable to give details except for she is having the same feeling as she did last time. She denies any constitutional symptoms except for nausea and vomiting. She has kept her AO splint clean dry and intact. No other pedal complaints at this time. Objective Data Objective Data Vital Signs: Vital Signs Temp Pulse Resp BP Pulse Ox O2 Del Method O2 Flow Rate 98.9 F 78 20 H 134/100 H 98 Room Air 96 05/08/23 08:48 05/08/23 08:48 05/08/23 08:48 05/08/23 08:48 05/08/23 08:48 05/08/23 08:53 05/04/23 15:23 Oxygen Flow Rate (L/min) 96 Oxygen Delivery Method Room Air Weight: 94.2 kg Body Mass Index (BMI) 33.5 Intake & Output: Intake and Output for Last 24 Hours 05/06/23 05/07/23 05/08/23 23:59 23:59 23:59 Intake Total 2659.00 / 2859.00 950 / 950 50 / 50 Output Total 1300 / 1300 400 / 400 Balance 1359.00 / 1559.00 950 / 750 -350 / -350 Lab / Micro Data Attestation: I reviewed the patient's lab results. 05/06/23 06:05 05/07/23 06:00 Labs: Laboratory Results - last 24 hr 05/07/23 11:16: POC Glucose 125 H 05/07/23 15:57: POC Glucose 102 05/07/23 16:38: POC Glucose 102 05/07/23 20:30: POC Glucose 189 H 05/08/23 05:18: POC Glucose 158 H Micro: Microbiology 05/04/23 17:40 Wound - Right Foot Gram Stain - Final 05/04/23 17:40 Wound - Right Foot Wound Culture - Final Streptococcus dysgalactiae dys 05/04/23 17:40 Tissue - Right Foot Gram Stain - Final 05/04/23 17:40 Tissue - Right Foot Wound Culture - Final Streptococcus dysgalactiae equ Staphylococcus epidermidis Staphylococcus hominis hominis 05/04/23 17:40 Wound - Right Foot Gram Stain - Final 05/04/23 17:40 Wound - Right Foot Wound Culture - Final Streptococcus dysgalactiae equ Staphylococcus warneri 05/04/23 12:10 Wound - Right Foot Gram Stain - Final 05/04/23 12:10 Wound - Right Foot Wound Culture - Final Streptococcus dysgalactiae equ Coag Negative Staph Staphylococcus simulans 05/04/23 12:00 Blood Culture (Wb) - Anticubital Left Blood Culture - Preliminary No growth in 48 hours. 05/04/23 11:40 Blood Culture (Wb) - Anticubital Left Blood Culture - Preliminary No growth in 48 hours. Physical Exam Narrative Neurovascular is unchanged. Nonpitting edema appreciated to the distal and proximal aspect of the right AO splint. The AO splint to the right lower extremity. Active and passive range of motion to the digits is pain-free. No pain with calf compression. He stated to the subfifth metatarsal of the left foot. Elongated toenails 1 through 5 bilateral. Assessment & Plan Assessment/Plan (1) Gas gangrene: PLAN: Patient was examined and evaluated. All findings were discussed with the patient. All questions were answered to the patient satisfaction. Right lower extremity AO splint was left clean dry and intact. Patient is to benonweightbearing to the right foot. Full weightbearing to left lower extremity with assistance of walker or crutches. Sx Cx: Pre-Lavage Cx: S. dygalactiae, S epidermidis, S hominis mominis Post-Lavage Cx: S. dygalactiae Medicine: On board, medical management, IV antibiotics Vancomycin and Zosyn. Patient is cleared from a podiatry perspective for discharge once cleared by medicine team. Recommend 2 weeks of oral antibiotics based on final cultures and sensitivity. Patient is to follow-up with Dr. Forrest as an outpatient 1 week postdischarge in private office. Thank you for letting me be involved in the patient's care. (2) Non-pressure chronic ulcer of other part of right foot with fat layer exposed: (3) Tightness of right heel cord: (4) Type 2 diabetes mellitus with peripheral neuropathy: 05/08/23 1031 <Electronically signed by Abdirizak Forrest DPM> Cosigner Signature (if applicable): CC: ~ Signed [facility] Work Phone: 1([phone]) 340-728910-27-2023 Procedure [facility] 05-07-2023 Progress note Author Rickey Gifford [facility] May 07, 2023 12:40pm Note Date/Time May 07, 2023 1 2:36pm [facility] Medical Records Department [address] [place] [address] Progress Note - Hospitalist 05/07/23 1229 MR#: [id number] Acct: [id number] Name: GHISLAINE GIVENS Rep #:[id number] : 1990 33 From: Rickey Gifford DO PCP: Care Physician,No Primary Status :ADM IN Location: [place] [address] Reason for Visit Reason for Visit: Diagnoses Gas gangrene (05/04/23) Type 2 diabetes mellitus with diabetic polyneuropathy (05/04/23) Type 2 diabetes mellitus with other skin complications (05/04/23) Local infection of the skin and subcutaneous tissue, unspecified (05/04/23) Non-pressure chronic ulcer of other part of right foot with fat layer exposed (05/04/23) Subjective Subjective Still with nausea that has been going on for months. Objective Data Objective Data Vital Signs: Vital Signs Temp Pulse Resp BP Pulse Ox O2 Del Method O2 Flow Rate 36.3 C L 85 18 110/80 100 Room Air 96 05/07/23 11:35 05/07/23 11:35 05/07/23 11:35 05/07/23 11:35 05/07/23 11:35 05/07/23 11:35 05/04/23 15:23 Oxygen Flow Rate (L/min) 96 Oxygen Delivery Method Room Air Weight: 94.2 kg Body Mass Index (BMI) 33.5 Intake & Output: Intake and Output for Last 24 Hours 05/05/23 05/06/23 05/07/23 23:59 23:59 23:59 Intake Total 2659.00 / 2859.00 250 / 250 Output Total 1300 / 1300 Balance 1359.00 / 1559.00 250 / 250 Lab / Micro Data 05/06/23 06:05 05/07/23 06:00 Labs: Laboratory Results - last 24 hr 05/06/23 16:13: POC Glucose 203 H 05/06/23 21:45: POC Glucose 179 H 05/07/23 06:00: Sodium 138, Potassium 4.0, Chloride 108 H, Carbon Dioxide 26.0, Anion Gap 4 L, BUN 10, Creatinine 0.58, Estim Creat Clear Calc 131.56, Est GFR (MDRD) Af Amer 154, Est GFR (MDRD) Non-Af 127, BUN/Creatinine Ratio 17.1, Glucose 161 H, Calcium 8.4 L 05/07/23 06:03: POC Glucose 160 H 05/07/23 11:16: POC Glucose 125 H Micro: Microbiology 05/04/23 17:40 Wound - Right Foot Gram Stain - Final 05/04/23 17:40 Wound - Right Foot Wound Culture - Preliminary Beta streptococcus Gram positive organism 05/04/23 17:40 Tissue - Right Foot Gram Stain - Final 05/04/23 17:40 Tissue - Right Foot Wound Culture - Preliminary Streptococcus group C Gram positive organism Gram positive organism#2 05/04/23 12:10 Wound - Right Foot Gram Stain - Final 05/04/23 12:10 Wound - Right Foot Wound Culture - Preliminary Beta streptococcus Coag Negative Staph Gram positive organism 05/04/23 17:40 Wound - Right Foot Gram Stain - Final 05/04/23 17:40 Wound - Right Foot Wound Culture - Preliminary Streptococcus dysgalactiae equ Staphylococcus species 05/04/23 17:40 Wound - Right Foot Anaerobic Culture - Preliminary 05/04/23 12:00 Blood Culture (Wb) - Anticubital Left Blood Culture - Preliminary No growth in 48 hours. 05/04/23 11:40 Blood Culture (Wb) - Anticubital Left Blood Culture - Preliminary No growth in 48 hours. Physical Exam Const alert and no apparent distress HEENT head/scalp atraumatic and moist oral mucous membranes Psych affect normal Assessment & Plan Assessment/Plan (1) Diabetic foot infection: PLAN: With gas gangrene, abscess, full thickness ulceration with fat exposed. Pt underwent incision and drainage right foot on 05/04. Antibiotics with vancomycin and also add piperacillin/tazobactam. Follow-up cultures. Thus far showing Group C Strep, will vancomycin for now. Nonweightbearing on right lower extremity until okayed by podiatry. MRI showed ulcer at the plantar aspect of the forefoot with suspected adjacent abscess Further mgmt per podiatry. Pt had bedside I+D that showed scant purulent drainage. Definite procedure planned for 05/07 with excisional debridement w washout, delay primary closure. Cx showing Strep dysgalactiae and staph sp. Follow up cultures. (2) Nausea and vomiting: PLAN: Chronic Has had a GES that was reportedly negative. I told he and her significant other that it is unclear what it could be. It could be gastroparesis v other. It may be reasonable to be on a gluten-free diet to see that would help. The significant other is aware of the diet because he has family members who are on a gluten-free diet. PLAN: Plan Chronic conditions * Diabetes mellitus type 2: fair control. Continue with glargine. Hold metformin for the time being. Add sliding scale insulin. * Diabetic neuropathy VTE prophylaxis with enoxaparin. Greater than 35 minutes of which greater than 50% of the time was discussing with the patient and her about the potential for discharge today pendingsurgery but also cultures and also addressing her chronic nausea vomiting as to what that could be. Did discuss with him about following gluten-free diet to see if that may help her symptoms. Told him that it may not be celiac disease but it may be reasonable to try that to see if that seems to help her symptoms. Charges/Coding Visit Charges Inpatient E&M: 67549 Subs Hosp L2 05/07/23 1240 <Electronically signed by Rickey Gifford DO> Cosigner Signature (if applicable): CC: ~ Signed [facility] Work Phone: 1(925) 439-480510-26-2023 Consult note Author Rickey Gifford [facility] May 06, 2023 4:46pm Note Date/Time May 04, 2023 8 :30pm [facility] Medical Records Department [address] [place] [address] Pharmacokinetic/Renal -Consult 05/04/232026 MR#: [id number] Acct: [id number] Name: GHISLAINE GIVENS Rep #:[id number] : 1990 33 From: Otto enamorado PCP: Care Physician,No Primary Status :ADM IN Y Location: MS3 YW196-6 Consult Antibiotic Management Pharmacy has been consulted to manage selected antiobiotic: Vancomycin Type of Intervention Type of Consult: New start Suspected Infection Suspected Infection: Skin/Soft tissue Prior Doses of Antibiotics Prior Doses of Antibiotics Received/Current Regimen: received vanc 2000mg IV x1 in E.R. starting at 13:15 today Labs Labs: Sodium 133 mmol/L (136-145) L 05/04/23 11:40 Potassium 3.8 mmol/L (3.5-5.1) 05/04/23 11:40 Chloride 102 mmol/L (98-107) 05/04/23 11:40 Carbon Dioxide 27.0 mmol/L (21.0-32.0) 05/04/23 11:40 Anion Gap 4 (5-15) L 05/04/23 11:40 BUN 9 mg/dL (7-18) 05/04/23 11:40 Creatinine 0.72 mg/dL (0.55-1.02) 05/04/23 11:40 Est GFR (MDRD) Af Amer 121 mL/min (>60) 05/04/23 11:40 Est GFR (MDRD) Non-Af 100 mL/min (>60) 05/04/23 11:40 BUN/Creatinine Ratio 12.5 RATIO (10-20) 05/04/23 11:40 Glucose 207 mg/dL (74-106) H 05/04/23 11:40 Dosing Weight Weight used for dosin.2 kg Estimated Creatinine Clearance Estimated Creatinine Clearance: >100ml/min Goal Trough Goal Trough: 15-20 mcg/mL Pharmacy Plan for Drug Dosing Pharmacy Plan for Drug Dosing: Starting 8 hours after the E.R. dose, will continue with 1000mg IV q8h per [facility] dosing protocol. Will check a trough before the 4th total dose tomorrow. Pharmacy Service will continue to monitor and adjust dosing as required. Follow-Up Labs Follow-Up Labs: Trough: Vancomycin Date/Time Labs Ordered Labs to be done on [date and time ordered]: 05/05/23 12:30 05/04/232030 <Electronically signed by Otto Zapata erg> Date _ Otto Nolan 05/06/236 <Electronically signed by Rickey Gifford DO> Cosigner Signature (if applicable): Date Rickey Gifford DO CC: ~ Signed [facility] Work Phone: 1(349) 200-603010-26-2023 Consult note Author Rickey Gifford [facility] May 06, 2023 4:46pm Note Date/Time May 05, 2023 2 :05pm [facility] Medical Records Department [address] [place] [address] Pharmacokinetic/Renal -Consult 05/05/23 1404 MR#: [id number] Acct: [id number] Name: GHISLAINE GIVENS Rep #:[id number] : 1990 33 From: Gage Trejo PCP: Care Physician,No Primary Status :ADM IN Y Location: [place] [address]-1 Consult Antibiotic Management Pharmacy has been consulted to manage selected antiobiotic: Vancomycin Type of Intervention Type of Consult: Follow-up Suspected Infection Suspected Infection: Skin/Soft tissue Prior Doses of Antibiotics Prior Doses of Antibiotics Received/Current Regimen: Vancomycin 1000 mg given 05/04 @ 2242, and 05/05 @ 4613 Labs Labs: Sodium 132 mmol/L (136-145) L 05/05/23 06:20 Potassium 4.0 mmol/L (3.5-5.1) 05/05/23 06:20 Chloride 105 mmol/L (98-107) 05/05/23 06:20 Carbon Dioxide 21.0 mmol/L (21.0-32.0) 05/05/23 06:20 Anion Gap 6 (5-15) 05/05/23 06:20 BUN 9 mg/dL (7-18) 05/05/23 06:20 Creatinine 0.67 mg/dL (0.55-1.02) 05/05/23 06:20 Est GFR (MDRD) Af Amer 131 mL/min (>60) 05/05/23 06:20 Est GFR (MDRD) Non-Af 109 mL/min (>60) 05/05/23 06:20 BUN/Creatinine Ratio 13.4 RATIO (10-20) 05/05/23 06:20 Glucose 157 mg/dL (74-106) H 05/05/23 06:20 Vancomycin Trough 15.1 ug/mL (5.0-15.0) H 05/05/23 12:50 Microbiology Microbiology: Microbiology 05/04/23 17:40 Tissue - Right Foot Wound Culture - Preliminary Streptococcus group C 05/04/23 12:10 Wound - Right Foot Wound Culture - Preliminary Streptococcus group C Dosing Weight Weight used for dosin.2 kg Estimated Creatinine Clearance Estimated Creatinine Clearance: 114 Goal Trough Goal Trough: 15-20 mcg/mL Pharmacy Plan for Drug Dosing Pharmacy Plan for Drug Dosing: Vancomycin trough came back at 15.1. Continue vancomycin 1000 mg Q8H with a trough in 2 days. Pharmacy Service will continue to monitor and adjust dosing as required. Follow-Up Labs Follow-Up Labs: Trough: Vancomycin Date/Time Labs Ordered Labs to be done on [date and time ordered]: 05/07/23 @ 1230 05/05/23 1406 <Electronically signed by Gage mendoza> Date _ Gage Trejo 05/06/23 1646 <Electronically signed by Rickey Gifford DO> Cosigner Signature (if applicable): Date Rickey Gifford DO CC: ~ Signed [facility] Work Phone: [phone]) 818-381710-26-2023 Progress note Author Rickey Gifford [facility] May 06, 2023 2:03pm Note Date/Time May 06, 2023 8 :47am [facility] Medical Records Department [address] [place] [address] Progress Note - Hospitalist 05/06/23 0844 MR#: [id number] Acct: [id number] Name: GHISLAINE GIVENS Rep #:[id number] : 1990 33 From: Rickey Gifford DO PCP: Care Physician,No Primary Status :ADM IN Location: [place] [address] Reason for Visit Reason for Visit: Diagnoses Gas gangrene (05/04/23) Type 2 diabetes mellitus with diabetic polyneuropathy (05/04/23) Type 2 diabetes mellitus with other skin complications (05/04/23) Local infection of the skin and subcutaneous tissue, unspecified (05/04/23) Non-pressure chronic ulcer of other part of right foot with fat layer exposed (05/04/23) Subjective Subjective No new events. Objective Data Objective Data Vital Signs: Vital Signs Temp Pulse Resp BP Pulse Ox O2 Del Method O2 Flow Rate 36.8 C 74 16 108/79 94 Room Air 96 05/06/23 08:40 05/06/23 08:40 05/06/23 08:40 05/06/23 08:40 05/06/23 08:40 05/06/23 08:40 05/04/23 15:23 Oxygen Flow Rate (L/min) 96 Oxygen Delivery Method Room Air Weight: 94.2 kg Body Mass Index (BMI) 33.5 Intake & Output: Intake and Output for Last 24 Hours 05/04/23 05/05/23 05/06/23 23:59 23:59 23:59 Intake Total 1182 / 1182 1361.75 / 1361.75 Balance 1182 / 1182 1361.75 / 1361.75 Lab / Micro Data 05/06/23 06:05 05/06/23 06:05 Labs: Laboratory Results - last 24 hr 05/05/23 11:27: POC Glucose 183 H 05/05/23 12:50: Vancomycin Trough 15.1 H 05/05/23 16:17: POC Glucose 160 H 05/05/23 22:28: POC Glucose 205 H 05/06/23 06:05: WBC 5.8, RBC 3.54 L, Hgb 10.1 L, Hct 32.8 L, MCV 92.7, MCH 28.5,MCHC 30.8 L, RDW Std Deviation 54.6 H, RDW Coeff of John 15.9 H, Plt Count 317, MPV 9.4, Immature Gran % (Auto) 0.700, Neut % (Auto) 40.5 L, Lymph % (Auto) 49.6H, Bacon % (Auto) 8.4, Eos % (Auto) 0.3, Baso % (Auto) 0.5, Absolute Neuts (auto)2.4, Absolute Lymphs (auto) 2.89, Nucleated RBC % 0, Sodium 139, Potassium 4.0, Chloride 108 H, Carbon Dioxide 24.0, Anion Gap 7, BUN 13, Creatinine 0.69, EstimCreat Clear Calc 110.59, Est GFR (MDRD) Af Amer 128, Est GFR (MDRD) Non-Af 106, BUN/Creatinine Ratio 18.9, Glucose 207 H, Calcium 8.7 Micro: Microbiology 05/04/23 12:00 Blood Culture (Wb) - Anticubital Left Blood Culture - Preliminary No growth in 48 hours. 05/04/23 11:40 Blood Culture (Wb) - Anticubital Left Blood Culture - Preliminary No growth in 48 hours. 05/04/23 17:40 Wound - Right Foot Gram Stain - Final 05/04/23 17:40 Tissue - Right Foot Gram Stain - Final 05/04/23 17:40 Tissue - Right Foot Wound Culture - Preliminary Streptococcus group C 05/04/23 17:40 Wound - Right Foot Gram Stain - Final 05/04/23 12:10 Wound - Right Foot Gram Stain - Final 05/04/23 12:10 Wound - Right Foot Wound Culture - Preliminary Streptococcus group C Radiography Diagnostic Testing: Radiology Impression Lower Extremity MRI 05/04/23 17:00 IMPRESSION: Amputation of the fifth digit through the midshaft of the fifth metatarsal. Ulcer at the plantar aspect of the forefoot with suspected adjacent abscess in the plantar subcutaneous fat extending into the third intermetatarsal space, with tiny air bubbles. No osteomyelitis. Atrophy, fatty infiltration, and edema of the intrinsic muscles of the foot. Moderate subcutaneous soft tissue edema along the dorsum of the foot. Electronically Signed: Naga Lr MD at 11:07 EDT , Physical Exam Const alert and no apparent distress HEENT head/scalp atraumatic and moist oral mucous membranes Neuro Sensorium / Orientation: awake and alert Psych affect normal Assessment & Plan Assessment/Plan (1) Diabetic foot infection: PLAN: With gas gangrene, abscess, full thickness ulceration with fat exposed. Pt underwent incision and drainage right foot on 05/04. Antibiotics with vancomycin and also add piperacillin/tazobactam. Follow-up cultures. Thus far showing Group C Strep, will vancomycin for now. Nonweightbearing on right lower extremity until okayed by podiatry. MRI showed ulcer at the plantar aspect of the forefoot with suspected adjacent abscess Further mgmt per podiatry. Pt had bedside I+D that showed scant purulent drainage. Definite procedure planned for 05/07 with excisional debridement w washout, delay primary closure. PLAN: Plan Chronic conditions * Diabetes mellitus type 2: fair control. Continue with glargine. Hold metformin for the time being. Add sliding scale insulin. * Diabetic neuropathy VTE prophylaxis with enoxaparin. Charges/Coding Visit Charges Inpatient E&M: 68224 Subs Hosp L1 05/06/23 1403 <Electronically signed by Rickey Gifford DO> Cosigner Signature (if applicable): CC: ~ Signed [facility] Work Phone: 1(520) 506-357710-26-2023 Progress note Author Abdirizak Forrest [facility] May 06, 2023 8:10am Note Date/Time May 06, 2023 8 :10am [facility] Medical Records Department [address] [place] [id number] Progress Note - Surgery 05/06/23 0802 MR#: [id number] Acct: [id number] Name: GHISLAINE GIVENS Rep #:[id number] : 1990 33 From: Abdirizak Gupta PM PCP: Care Physician,No Primary Status :ADM IN Location: CA3 [id number] Subjective Subjective Ms. Givens is a 33-year-old diabetic female seen at bedside today for dressing changes to the right lower extremity. Patient is status post incision and drainage to the right foot with concerns of gas gangrene. Patient denies any pain to the right lower extremity. MRI was taken with concerns of abscess to the third interspace of the right foot. Area of concern was explored today withbedside I&D. There was evidence of 5 cc of scant purulent sanguinous drainage appreciated. The area was flushed with 20 cc of sterile normal saline. Area was packed with sterile gauze. A single layer Aguero compression bandage was donned. We will plan for a excisional debridement of both incision and washout with a CRISTY to the right lower extremity this Wednesday. She denies constitutional symptoms. No other pedal complaints at this time. Objective Data Objective Data Vital Signs: Vital Signs Temp Pulse Resp BP Pulse Ox O2 Del Method O2 Flow Rate 98 F 72 16 95/64 98 Room Air 96 05/06/23 02:46 05/06/23 02:46 05/06/23 02:46 05/06/23 02:46 05/06/23 02:46 05/06/23 02:46 05/04/23 15:23 Oxygen Flow Rate (L/min) 96 Oxygen Delivery Method Room Air Weight: 94.2 kg Body Mass Index (BMI) 33.5 Intake & Output: Intake and Output for Last 24 Hours 05/04/23 05/05/23 05/06/23 23:59 23:59 23:59 Intake Total 1182 / 1182 1150 / 1150 Balance 1182 / 1182 1150 / 1150 Lab / Micro Data Attestation: I reviewed the patient's lab results. 05/06/23 06:05 05/06/23 06:05 Labs: Laboratory Results - last 24 hr 05/05/23 11:27: POC Glucose 183 H 05/05/23 12:50: Vancomycin Trough 15.1 H 05/05/23 16:17: POC Glucose 160 H 05/05/23 22:28: POC Glucose 205 H 05/06/23 06:05: WBC 5.8, RBC 3.54 L, Hgb 10.1 L, Hct 32.8 L, MCV 92.7, MCH 28.5,MCHC 30.8 L, RDW Std Deviation 54.6 H, RDW Coeff of John 15.9 H, Plt Count 317, MPV 9.4, Immature Gran % (Auto) 0.700, Neut % (Auto) 40.5 L, Lymph % (Auto) 49.6H, Bacon % (Auto) 8.4, Eos % (Auto) 0.3, Baso % (Auto) 0.5, Absolute Neuts (auto)2.4, Absolute Lymphs (auto) 2.89, Nucleated RBC % 0, Sodium 139, Potassium 4.0, Chloride 108 H, Carbon Dioxide 24.0, Anion Gap 7, BUN 13, Creatinine 0.69, EstimCreat Clear Calc 110.59, Est GFR (MDRD) Af Amer 128, Est GFR (MDRD) Non-Af 106, BUN/Creatinine Ratio 18.9, Glucose 207 H, Calcium 8.7 Micro: Microbiology 05/04/23 12:00 Blood Culture (Wb) - Anticubital Left Blood Culture - Preliminary No growth in 48 hours. 05/04/23 11:40 Blood Culture (Wb) - Anticubital Left Blood Culture - Preliminary No growth in 48 hours. 05/04/23 17:40 Wound - Right Foot Gram Stain - Final 05/04/23 17:40 Tissue - Right Foot Gram Stain - Final 05/04/23 17:40 Tissue - Right Foot Wound Culture - Preliminary Streptococcus group C 05/04/23 17:40 Wound - Right Foot Gram Stain - Final 05/04/23 12:10 Wound - Right Foot Gram Stain - Final 05/04/23 12:10 Wound - Right Foot Wound Culture - Preliminary Streptococcus group C Radiography Diagnostic Testing: Radiology Impression Lower Extremity MRI 05/04/23 17:00 IMPRESSION: Amputation of the fifth digit through the midshaft of the fifth metatarsal. Ulcer at the plantar aspect of the forefoot with suspected adjacent abscess in the plantar subcutaneous fat extending into the third intermetatarsal space, with tiny air bubbles. No osteomyelitis. Atrophy, fatty infiltration, and edema of the intrinsic muscles of the foot. Moderate subcutaneous soft tissue edema along the dorsum of the foot. Electronically Signed: Naga Lr MD at 11:07 EDT Reading Location ID and State: [address] [place] [address] , Service support , Physical Exam Narrative Neurovascular status unchanged. Nonpitting edema appreciated to the right foot. No active drainage. Erythema has improved. Wound base is granular nature withno active drainage. No pain with calf compression. Bedside I&D was performed to the right foot. The right foot was prepped and draped in normal aseptic manner. Using a sterile hemostat, dilation of the deepplantar follow-up was continued into the third interspace of the right foot. There was noted to be 5 cc of scant purulent sanguinous drainage which was appreciated. The plantar incision was flushed with 20 cc of normal saline. Theright foot was white clean and patted dry. The area was packed with sterile gauze to allow for additional drainage. The right foot was dressed with dry sterile dressing and a single layer Aguero compression bandage. Const alert, oriented x3 and no apparent distress Assessment & Plan Assessment/Plan (1) Gas gangrene: PLAN: Patient was examined and evaluated. All findings were discussed with the patient. All questions were answered to the patient's satisfaction. Bedside I&D was performed to the right foot. The right foot was prepped and draped in normal aseptic manner. Using a sterile hemostat, dilation of the deepplantar follow-up was continued into the third interspace of the right foot. There was noted to be 5 cc of scant purulent sanguinous drainage which was appreciated. The plantar incision was flushed with 20 cc of normal saline. Theright foot was white clean and patted dry. The area was packed with sterile gauze to allow for additional drainage. The right foot was dressed with dry sterile dressing and a single layer Aguero compression bandage. Surgical cultures: Streptococcus group C WBC: 11.1 -> 8.8 -> 5.8 Glu: 207 Medicine: On board, medical management, IV antibiotics Podiatry will continue to follow while the patient is in house. We will plan for definitive procedure on Wednesday, excisional debridement with washout, delayedprimary closure with CRISTY all of the right lower extremity. Reach out to Dr. Forrest with any questions or concerns. (2) Non-pressure chronic ulcer of other part of right foot with fat layer exposed: (3) Type 2 diabetes mellitus with peripheral neuropathy: PLAN: Alejandrina strict glycemic control while the patient is in house to optimize healing. 05/06/23 0810 <Electronically signed by Abdirizak Forrest DPM> Cosigner Signature (if applicable): CC: ~ Signed [facility] Work Phone: 1(461) 755-605310-25-2023 Progress note Author Rickey Gifford [facility] May 05, 2023 1:09pm Note Date/Time May 05, 2023 7 :49am [facility] Medical Records Department [address] [place] [address] Progress Note - Hospitalist 05/05/23 0745 MR#: [id number] Acct: [id number] Name: GIVENSGHISLAINE BARBOURREBA Rep #:[id number] : 1990 33 From: Rickey Gifford DO PCP: Care Physician,No Primary Status :ADM IN Location: MS3 [id number] Reason for Visit Reason for Visit: Diagnoses Gas gangrene (05/04/23) Type 2 diabetes mellitus with diabetic polyneuropathy (05/04/23) Type 2 diabetes mellitus with other skin complications (05/04/23) Local infection of the skin and subcutaneous tissue, unspecified (05/04/23) Non-pressure chronic ulcer of other part of right foot with fat layer exposed (05/04/23) Subjective Subjective No events overnight. Objective Data Objective Data Vital Signs: Vital Signs Temp Pulse Resp BP Pulse Ox O2 Del Method O2 Flow Rate 37.9 C H 102 H 16 132/92 H 100 Room Air 96 05/05/23 03:00 05/05/23 03:00 05/05/23 03:00 05/05/23 03:00 05/05/23 03:00 05/05/23 03:30 05/04/23 15:23 Oxygen Flow Rate (L/min) 96 Oxygen Delivery Method Room Air Weight: 94.2 kg Body Mass Index (BMI) 33.5 Intake & Output: Intake and Output for Last 24 Hours 05/03/23 05/04/23 05/05/23 23:59 23:59 23:59 Intake Total 1182 / 1182 1450.25 / 1450.25 Balance 1182 / 1182 1450.25 / 1450.25 Lab / Micro Data 05/05/23 06:20 05/05/23 06:20 Labs: Laboratory Results - last 24 hr 05/04/23 11:40: WBC 11.1 H, RBC 3.68 L, Hgb 10.5 L, Hct 32.8 L, MCV 89.1, MCH 28.5, MCHC 32.0, RDW Std Deviation 52.3 H, RDW Coeff of John 15.9 H, Plt Count 333, MPV 9.2, Immature Gran % (Auto) 1.300 H, Neut % (Auto) 73.2 H, Lymph % (Auto) 14.9 L, Bacon % (Auto) 10.2 H, Eos % (Auto) 0.0, Baso % (Auto) 0.4, Absolute Neuts (auto) 8.1 H, Absolute Lymphs (auto) 1.65, Nucleated RBC % 0, ESR88 H, Sodium 133 L, Potassium 3.8, Chloride 102, Carbon Dioxide 27.0, Anion Gap 4 L, BUN 9, Creatinine 0.72, Estim Creat Clear Calc 105.98, Est GFR (MDRD) Af Amer 121, Est GFR (MDRD) Non-Af 100, BUN/Creatinine Ratio 12.5, Glucose 207 H, Hemoglobin A1c 7.2 H, Lactic Acid 1.9, Calcium 8.7, C-React Prot Ext Range 117.00 H 05/04/23 16:14: POC Glucose 140 H 05/04/23 16:35: Urine Test Negative 05/04/23 20:05: POC Glucose 127 H 05/04/23 23:11: POC Glucose 183 H 05/05/23 06:15: POC Glucose 148 H 05/05/23 06:20: WBC 8.8, RBC 3.39 L, Hgb 9.6 L, Hct 31.0 L, MCV 91.4, MCH 28.3, MCHC 31.0 L, RDW Std Deviation 53.1 H, RDW Coeff of John 15.9 H, Plt Count 305, MPV 9.4, Immature Gran % (Auto) 0.600, Neut % (Auto) 56.9, Lymph % (Auto) 30.9, Bacon % (Auto) 11.1 H, Eos % (Auto) 0.0, Baso % (Auto) 0.5, Absolute Neuts (auto)5.0, Absolute Lymphs (auto) 2.73, Nucleated RBC % 0, Sodium 132 L, Potassium 4.0, Chloride 105, Carbon Dioxide 21.0, Anion Gap 6, BUN 9, Creatinine 0.67, Estim Creat Clear Calc 113.89, Est GFR (MDRD) Af Amer 131, Est GFR (MDRD) Non-Af109, BUN/Creatinine Ratio 13.4, Glucose 157 H, Calcium 8.2 L Radiography Diagnostic Testing: Radiology Impression Foot X-Ray 05/04/23 11:34 IMPRESSION: 1. Small amounts of soft tissue air is present between the fourth and fifth proximal phalanges and in the amputation bed of the fifth digit with diffuse swelling and increased density of the soft tissues in this region. Soft tissue ulcer/open wound is suspected in these regions. Gas gangrene can also present in this manner. There is no demonstrated evidence of osteomyelitis. Electronically Signed: Sam Hendrickson MD at 11:59 EDT Reading Location ID and State: [facility] / [place] , Service support , Physical Exam Const alert and no apparent distress HEENT head/scalp atraumatic and moist oral mucous membranes Resp normal respiratory effort, no retractions, no use of accessory muscles and clearto auscultation bilaterally Cardio regular rate, regular rhythm, S1 normal heart sound and S2 normal heart sound GI normal to inspection, nondistended, normoactive bowel sounds Assessment & Plan Assessment/Plan (1) Diabetic foot infection: PLAN: With gas gangrene, abscess, ful thickness ulceration with fat exposed. Pt underwent incision and drainage right foot on 05/04. Antibiotics with vancomycin and also add piperacillin/tazobactam Follow-up cultures Nonweightbearing on right lower extremity until okayed by podiatry. MRI showed ulcer at the plantar aspect of the forefoot with suspected adjacent abscess Further mgmt per podiatry. PLAN: Plan Chronic conditions * Diabetes mellitus type 2: Continue with glargine. Hold metformin for the time being. Add sliding scale insulin. * Diabetic neuropathy VTE prophylaxis with enoxaparin. Charges/Coding Visit Charges Inpatient E&M: 89086 Subs Hosp L2 05/05/23 1309 <Electronically signed by Rickey Gifford DO> Cosigner Signature (if applicable): CC: ~ Signed [facility] Work Phone: 1([phone]) 129-771810-25-2023 Progress note Author Abdirizak Forrest [facility] May 05, 2023 10:17am Note Date/Time May 05, 2023 8 :29am [facility] Medical Records Department [address] [facility] [place] [address] Progress Note - Surgery 05/05/23828 MR#: [id number] Acct: [id number] Name: GHISLAINE GIVENS Rep #:[id number] : 1990 33 From: Abdirizak Gupta PM PCP: Care Physician,No Primary Status :ADM IN Location: MS3 CU883-0 Subjective Subjective Ms. Givens is a 33-year-old diabetic female status post emergent incision and drainage secondary to gas gangrene to the right foot. Date of surgery was 05/04/2023. Patient has kept her postoperative dressing clean dry and intact. There was some evidence of strikethrough appreciated to the plantar incision. Patient is denying any pain at the time of interview today. Her blood sugar hasbeen controlled while in the hospital. Will perform dressing change today at bedside. Plan for MRI to rule out osteomyelitis to the right foot to be performed today. She denies trauma. Denies constitutional symptoms. No other pedal complaints at this time. Objective Data Objective Data Vital Signs: Vital Signs Temp Pulse Resp BP Pulse Ox O2 Del Method O2 Flow Rate 98.5 F 106 H 18 121/81 H 98 Room Air 96 05/05/23 08:23 05/05/23 08:23 05/05/23 08:23 05/05/23 08:23 05/05/23 08:23 05/05/23 08:24 05/04/23 15:23 Oxygen Flow Rate (L/min) 96 Oxygen Delivery Method Room Air Weight: 94.2 kg Body Mass Index (BMI) 33.5 Intake & Output: Intake and Output for Last 24 Hours 05/03/23 05/04/23 05/05/23 23:59 23:59 23:59 Intake Total 1182 / 1182 1450.25 / 1450.25 Balance 1182 / 1182 1450.25 / 1450.25 Lab / Micro Data Attestation: I reviewed the patient's lab results. 05/05/23 06:20 05/05/23 06:20 Labs: Laboratory Results - last 24 hr 05/04/23 11:40: WBC 11.1 H, RBC 3.68 L, Hgb 10.5 L, Hct 32.8 L, MCV 89.1, MCH 28.5, MCHC 32.0, RDW Std Deviation 52.3 H, RDW Coeff of John 15.9 H, Plt Count 333, MPV 9.2, Immature Gran % (Auto) 1.300 H, Neut % (Auto) 73.2 H, Lymph % (Auto) 14.9 L, Bacon % (Auto) 10.2 H, Eos % (Auto) 0.0, Baso % (Auto) 0.4, Absolute Neuts (auto) 8.1 H, Absolute Lymphs (auto) 1.65, Nucleated RBC % 0, ESR88 H, Sodium 133 L, Potassium 3.8, Chloride 102, Carbon Dioxide 27.0, Anion Gap 4 L, BUN 9, Creatinine 0.72, Estim Creat Clear Calc 105.98, Est GFR (MDRD) Af Amer 121, Est GFR (MDRD) Non-Af 100, BUN/Creatinine Ratio 12.5, Glucose 207 H, Hemoglobin A1c 7.2 H, Lactic Acid 1.9, Calcium 8.7, C-React Prot Ext Range 117.00 H 05/04/23 16:14: POC Glucose 140 H 05/04/23 16:35: Urine Test Negative 05/04/23 20:05: POC Glucose 127 H 05/04/23 23:11: POC Glucose 183 H 05/05/23 06:15: POC Glucose 148 H 05/05/23 06:20: WBC 8.8, RBC 3.39 L, Hgb 9.6 L, Hct 31.0 L, MCV 91.4, MCH 28.3, MCHC 31.0 L, RDW Std Deviation 53.1 H, RDW Coeff of John 15.9 H, Plt Count 305, MPV 9.4, Immature Gran % (Auto) 0.600, Neut % (Auto) 56.9, Lymph % (Auto) 30.9, Bacon % (Auto) 11.1 H, Eos % (Auto) 0.0, Baso % (Auto) 0.5, Absolute Neuts (auto)5.0, Absolute Lymphs (auto) 2.73, Nucleated RBC % 0, Sodium 132 L, Potassium 4.0, Chloride 105, Carbon Dioxide 21.0, Anion Gap 6, BUN 9, Creatinine 0.67, Estim Creat Clear Calc 113.89, Est GFR (MDRD) Af Amer 131, Est GFR (MDRD) Non-Af109, BUN/Creatinine Ratio 13.4, Glucose 157 H, Calcium 8.2 L Radiography Diagnostic Testing: Radiology Impression Foot X-Ray 05/04/23 11:34 IMPRESSION: 1. Small amounts of soft tissue air is present between the fourth and fifth proximal phalanges and in the amputation bed of the fifth digit with diffuse swelling and increased density of the soft tissues in this region. Soft tissue ulcer/open wound is suspected in these regions. Gas gangrene can also present in this manner. There is no demonstrated evidence of osteomyelitis. Electronically Signed: Sam Hendrickson MD at 11:59 EDT , Physical Exam Narrative Neurovascular is unchanged. Nonpitting edema appreciated the plantar aspect of the right foot. 2 incisions are appreciated dorsal and plantarly with 100% granular tissue. No evidence of drainage at this time. No malodor. Evidence of probe to bone secondary to surgical incisions. No pain on palpation to both incisions. No pain with calf compression. Const oriented x3 and no apparent distress Assessment & Plan Assessment/Plan (1) Gas gangrene: PLAN: Patient was examined evaluated. All findings were discussed with the patient. All questions were answered to the patient satisfaction. The patient's right lower extremity dressing was changed today packing was removed. The patient's incisions are healthy with no evidence of purulence or drainage at the time of dressing change. The packing will not be replaced secondary to MRI today of the right foot. Both incision were dressed with Betadine soaked gauze, dry sterile dressing and a double layer Aguero compressionbandage was applied. Patient is to continue nonweightbearing to right lower extremity. She can be full weightbearing to the left lower extremity. Based on the MRI results we will plan for definitive procedure either incision of bone cortex of the fourth ray, delayed primary closure and advancement flap versus washout and delayed primary closure with advancement flap of the right foot. WBC: 11.1 -> 8.8 ESR: 88 CRP: 117 HbA1c: 7.2 Medicine: On board, medical management, IV antibiotics vancomycin and Zosyn Podiatry will continue to follow with the patient his house. Please reach out to Dr. Forrest with any questions or concerns. (2) Non-pressure chronic ulcer of other part of right foot with fat layer exposed: (3) Type 2 diabetes mellitus with peripheral neuropathy: 05/05/23 1017 <Electronically signed by Abdirizak Forrest DPM> Cosigner Signature (if applicable): CC: ~ Signed [facility] Work Phone: 1(770) 790-564110-24-2023 Consult note Author Abdirizak Forrest [facility] May 04, 2023 5:02pm Note Date/Time May 04, 2023 4 :48pm [facility] Medical Records Department [address] [place] [address] Consultation 05/04/23 1642 MR#: [id number] Acct: [id number] Name: GHISLAINE GIVENS Rep #:[id number] : 1990 33 From: Abdirizak Gupta PM PCP: Care Physician,No Primary Status :[facility] Location: [facility] A-1 Assessment & Plan Assessment/Plan (1) Type 2 diabetes mellitus with peripheral neuropathy: PLAN: Patient was examined evaluated. All findings were discussed with the patient. All questions were answered to the patient's satisfaction. Patient shows evidence of worsening diabetic foot infection to the right foot. There is concern for gas gangrene which is confirmed on plain film radiographs. Will take the patient to the operating room to perform incision and drainage of the right foot get deep cultures and leave the wound open with packing to plan the more definitive procedure in the next 48 to 72 hours. We will get an MRI torule out osteomyelitis of the right foot after surgery today. Recommend for thepatient to have strict glycemic control while on the floor. Educated the patient in great detail that she is at risk for transmetatarsal amputation due to the nature of her current status. Again the patient was understanding. Patient will be admitted under medicine and Dr. Forrest will follow with podiatry service. HbA1c: Pending CRP: Pending ESR: Pending Wound cultures: Pending Blood cultures: Pending Medicine: On board, medical management Podiatry will continue to follow with dressing changes with the patient is in house. Please reach out to Dr. Forrest with any questions or concerns. Thank you for the consultation! (2) Non-pressure chronic ulcer of other part of right foot with fat layer exposed: (3) Gas gangrene: HPI Consult Data Date of Consult: 05/04/23 HPI Narrative Reason for Consultation: Gas gangrene right foot HPI Narrative: GHISLAINE GIVENS, is a 33 [address] to [facility] emergency department for concerns for worsening redness, pain and drainage to the right foot. Patient is a diabetic who admits to having a chronic ulceration to the plantar aspect of her right foot. The pain to the right foot is what initially brought the patient to the emergency department. Radiographs showed evidence ofemphysema and concern for gas infection. Podiatry was ultimately consulted for concern of a diabetic infection as well as the need for surgical intervention. The patient denies any trauma. Denies constitutional symptoms. No other pedal complaints at this time. [facility] Medical History Anxiety Asthma Constipation Depression Diabetes mellitus with diabetic polyneuropathy Elevated serum creatinine Failure of outpatient treatment Hypertension Neuropathy, diabetic Type 2 diabetes mellitus with foot ulcer Home Medications albuterol sulfate 90 mcg/actuation aerosol inhaler (Ventolin HFA) 1 inh inhalation Q4H SOB 04/06/22 [History Last Taken 06/24/22] metformin 500 mg tablet 1,000 mg PO BID DM 06/24/22 [History Last Taken 06/24/22] insulin glargine 100 unit/mL (3 mL) subcutaneous pen (Lantus Solostar U-100 Insulin) 15 unit subcut BID diabetes 08/12/22 [History Last Taken Unknown] hyoscyamine sulfate 0.125 mg sublingual tablet (Levsin/SL) 0.125 mg PO TID PRN abdominal pain #10 tabs 01/07/23 [Rx Last Taken Unknown] ondansetron 4 mg disintegrating tablet 4 mg PO Q8H PRN PRN Nausea #10 tabs 01/07/23 [Rx Last Taken Unknown] promethazine 25 mg tablet 25 mg PO TID PRN nausea and vomiting #20 tabs 01/09/23[Rx Last Taken Unknown] trazodone 300 mg tablet 300 mg PO QHS 01/12/23 [History Last Taken Unknown] bisacodyl 10 mg rectal suppository (Dulcolax (bisacodyl)) 10 mg AZ DAILY 3 days #12 ea 01/15/23 [Rx Last Taken Unknown] scopolamine base 1 mg over 3 days transdermal patch 1 patch transdermal Q3D PRN nausea and vomiting #4 ea 01/15/23 [Rx Last Taken Unknown] omeprazole 40 mg capsule,delayed release 40 mg PO BID #60 caps 01/19/23 [Rx Last Taken Unknown] lansoprazole 30 mg capsule,delayed release (Prevacid) 30 mg PO DAILY #14 caps 02/08/23 [Rx Last Taken Unknown] sulfamethoxazole 800 mg-trimethoprim 160 mg tablet (Bactrim DS) 1 tab PO BID 7 days #14 tabs 02/24/23 [Rx Last Taken Unknown] ondansetron 4 mg disintegrating tablet 4 mg PO TID PRN nausea and vomiting #21 tabs 02/26/23 [Rx Last Taken Unknown] polyethylene glycol 3350 17 gram/dose oral powder (Miralax) 17 g PO DAILY PRN constipation #510 grams 02/26/23 [Rx Last Taken Unknown] ondansetron 4 mg disintegrating tablet 4 mg PO Q8H PRN PRN Nausea #10 tabs 03/06/23 [Rx Last Taken Unknown] promethazine 25 mg rectal suppository (Promethegan) 25 mg [place] Q6H PRN PRN Nausea #6 supp 04/13/23 [Rx Last Taken Unknown] promethazine 25 mg tablet 25 mg PO Q6H PRN PRN Nausea #10 TABLETS 04/13/23 [Rx Last Taken Unknown] dicyclomine 20 mg tablet 20 mg PO TID PRN abdominal pain #30 tabs 04/14/23 [Rx Last Taken Unknown] Allergy/AdvReac Type Severity Reaction Status Date / Time No Known Allergies Allergy Verified 05/04/23 10:01 Family History Other Bleeding disorder Cancer Diabetes Hypertension Surgical History Hx of foot surgery Social History Smoking Status: Current every day smoker tobacco type: cigarettes alcohol intake: never substance use type: does not use what type of physical activity do you participate in: none Physical Exam Narrative Vascular: DP and PT pulses are palpable. CFT is brisk. Skin temperature gradient is warm to warm from proximal ankle to distal digits to right lower extremity. Evidence of erythema with proximal streaking. Nonpitting edema is also appreciated to the right foot. Neurological: Light touch intact. Protective sensation is absent. Patient doesnot respond to painful stimuli. Dermatological: Evidence of full-thickness ulceration with draining purulence tothe plantar aspect of the right foot. No dorsal wounds are appreciated. Musculoskeletal: Muscle strength is 5 out of 5 in all quadrants bilateral. Palpable bogginess and flocculence. No evidence of palpable crepitus. No pain on palpation to the full-thickness ulceration of the plantar aspect of the rightfoot. Evidence of right fifth digit amputation. No pain with calf compression. Const alert, oriented x3 and no apparent distress Lab / Micro Data 05/04/23 11:40 05/04/23 11:40 Labs: Laboratory Results - last 24 hr 05/04/23 11:40: WBC 11.1 H, RBC 3.68 L, Hgb 10.5 L, Hct 32.8 L, MCV 89.1, MCH 28.5, MCHC 32.0, RDW Std Deviation 52.3 H, RDW Coeff of John 15.9 H, Plt Count 333, MPV 9.2, Immature Gran % (Auto) 1.300 H, Neut % (Auto) 73.2 H, Lymph % (Auto) 14.9 L, Bacon % (Auto) 10.2 H, Eos % (Auto) 0.0, Baso % (Auto) 0.4, Absolute Neuts (auto) 8.1 H, Absolute Lymphs (auto) 1.65, Nucleated RBC % 0, Sodium 133 L, Potassium 3.8, Chloride 102, Carbon Dioxide 27.0, Anion Gap 4 L, BUN 9, Creatinine 0.72, Estim Creat Clear Calc 105.98, Est GFR (MDRD) Af Amer 121, Est GFR (MDRD) Non-Af 100, BUN/Creatinine Ratio 12.5, Glucose 207 H, LacticAcid 1.9, Calcium 8.7 05/04/23 16:14: POC Glucose 140 H Radiology Impression Foot X-Ray 05/04/23 11:34 IMPRESSION: 1. Small amounts of soft tissue air is present between the fourth and fifth proximal phalanges and in the amputation bed of the fifth digit with diffuse swelling and increased density of the soft tissues in this region. Soft tissue ulcer/open wound is suspected in these regions. Gas gangrene can also present in this manner. There is no demonstrated evidence of osteomyelitis. Electronically Signed: Sam Hendrickson MD at 11:59 EDT , 05/04/23 1702 <Electronically signed by Abdirizak Forrest DPM> Cosigner Signature (if applicable): CC: No Primary Care Physician~ Signed [facility] Work Phone: 1(674) 555-993810-24-2023 Procedure [facility] 05-04-2023 Discharge summary Author Javy Romario [facility] May 04, 2023 3:49pm Note Date/Time May 04, 2023 1 0:56am [facility] Medical Records Department [address] [place] [address] Emergency Department Summary 05/04/23 MR#: [id number] Acct: [id number] Name: GHISLAINE GIVENS Rep #:[id number] : 1990 33 From: Javy Doss DO PCP: Care Physician,No Primary Status :[facility] Location: [facility] A-1 HPI History of Present Illness Chief Complaint: Wound Detail of Chief Complaint: Redness and swelling to right foot with chronic wound Informant: patient Narrative Narrative: Patient presents with redness and swelling to the right foot. She states she noticed the redness and swelling last evening. Patient states that about a yearago she had a debridement of her foot by Dr. Matias whom she has not been able to see recently because he owes them money. Patient states that she has a chronic wound to the bottom of her foot that never has healed. She started having some drainage from the wound last evening. She had sweats last night butshe denies any fever. Patient is a diabetic. [facility] Medical History (Updated 05/04/23 @ 13:[address] Rickey Gifford, ) Anxiety Asthma Constipation Depression Diabetes mellitus with diabetic polyneuropathy Elevated serum creatinine Failure of outpatient treatment Hypertension Neuropathy, diabetic Type 2 diabetes mellitus with foot ulcer Home Medications albuterol sulfate 90 mcg/actuation aerosol inhaler (Ventolin HFA) 1 inh inhalation Q4H SOB 04/06/22 [History Last Taken 06/24/22] metformin 500 mg tablet 1,000 mg PO BID DM 06/24/22 [History Last Taken 06/24/22] insulin glargine 100 unit/mL (3 mL) subcutaneous pen (Lantus Solostar U-100 Insulin) 15 unit subcut BID diabetes 08/12/22 [History Last Taken Unknown] hyoscyamine sulfate 0.125 mg sublingual tablet (Levsin/SL) 0.125 mg PO TID PRN abdominal pain #10 tabs 01/07/23 [Rx Last Taken Unknown] ondansetron 4 mg disintegrating tablet 4 mg PO Q8H PRN PRN Nausea #10 tabs 01/07/23 [Rx Last Taken Unknown] promethazine 25 mg tablet 25 mg PO TID PRN nausea and vomiting #20 tabs 01/09/23[Rx Last Taken Unknown] trazodone 300 mg tablet 300 mg PO QHS 01/12/23 [History Last Taken Unknown] bisacodyl 10 mg rectal suppository (Dulcolax (bisacodyl)) 10 mg AZ DAILY 3 days #12 ea 01/15/23 [Rx Last Taken Unknown] scopolamine base 1 mg over 3 days transdermal patch 1 patch transdermal Q3D PRN nausea and vomiting #4 ea 01/15/23 [Rx Last Taken Unknown] omeprazole 40 mg capsule,delayed release 40 mg PO BID #60 caps 01/19/23 [Rx Last Taken Unknown] lansoprazole 30 mg capsule,delayed release (Prevacid) 30 mg PO DAILY #14 caps 02/08/23 [Rx Last Taken Unknown] sulfamethoxazole 800 mg-trimethoprim 160 mg tablet (Bactrim DS) 1 tab PO BID 7 days #14 tabs 02/24/23 [Rx Last Taken Unknown] ondansetron 4 mg disintegrating tablet 4 mg PO TID PRN nausea and vomiting #21 tabs 02/26/23 [Rx Last Taken Unknown] polyethylene glycol 3350 17 gram/dose oral powder (Miralax) 17 g PO DAILY PRN constipation #510 grams 02/26/23 [Rx Last Taken Unknown] ondansetron 4 mg disintegrating tablet 4 mg PO Q8H PRN PRN Nausea #10 tabs 03/06/23 [Rx Last Taken Unknown] promethazine 25 mg rectal suppository (Promethegan) 25 mg AZ Q6H PRN PRN Nausea #6 supp 04/13/23 [Rx Last Taken Unknown] promethazine 25 mg tablet 25 mg PO Q6H PRN PRN Nausea #10 TABLETS 04/13/23 [Rx Last Taken Unknown] dicyclomine 20 mg tablet 20 mg PO TID PRN abdominal pain #30 tabs 04/14/23 [Rx Last Taken Unknown] Allergy/AdvReac Type Severity Reaction Status Date / Time No Known Allergies Allergy Verified 05/04/23 10:01 Family History Other Bleeding disorder Cancer Diabetes Hypertension Surgical History Hx of foot surgery Social History Smoking Status: Current every day smoker tobacco type: cigarettes alcohol intake: never substance use type: does not use what type of physical activity do you participate in: none ROS ROS ED Review of Systems ROS Unobtainable: other Constitutional Constitutional ED: Reports lethargy; Denies chills, fever(s), sweats or weight loss Eyes Eyes: Denies blurry vision, change in vision or diplopia ENT ENT ED: Denies rhinorrhea or sore throat Cardiovascular Cardiovascular: Denies chest pain, orthopnea or racing heartbeat Respiratory/Chest Respiratory/Chest: Denies cough, dyspnea, dyspnea on exertion, orthopnea or sputum Gastrointestinal Gastrointestinal: Denies abdominal pain, diarrhea, nausea or vomiting Genitourinary Genitourinary ED: Denies dysuria, hematuria or urinary frequency Musculoskeletal Musculoskeletal: Reports other Details: Redness and swelling to the right foot with chronic wound ; Denies arthralgias, back pain, myalgias or neck pain Integumentary Denies abscess, Abrasions or rash Neurologic Neurologic: Denies headache(s) or weakness Psychiatric Psychiatric: Denies anxiety, depression or suicidal thoughts Endocrine Endocrinology: Denies polydipsia, polyphagia or polyuria Hematologic/Lymphatic Hematologic/Lymphatic: Denies easy bleeding, easy bruising or lymphadenopathy Allergic/Immunologic Allergic/Immunologic ED: Denies mouth swelling, tongue swelling or urticaria EXAM Physical Exam Const Vital Signs: 05/04/23 09:59 05/04/23 12:21 05/04/23 13:28 Temperature 98 F 98.9 F 98.9 F Temperature Source Temporal Oral Temporal Pulse Rate 123 H 116 H 106 H Respiratory Rate 18 18 14 Blood Pressure 122/66 H 122/66 H 129/89 H Blood Pressure Mean 84 84 102 Blood Pressure Source Blood Pressure Position Blood Pressure Location Pulse Ox 100 96 100 Oxygen Delivery Method Room Air Room Air Room Air Oxygen Flow Rate (L/min) 05/04/23 13:28 05/04/23 14:51 05/04/23 15:23 Temperature 97.4 F L 97.4 F L Temperature Source Oral Oral Pulse Rate 106 H 72 84 Respiratory Rate 14 16 16 Blood Pressure 129/89 H 136/71 H 134/69 H Blood Pressure Mean 102 92 90 Blood Pressure Source Monitor Blood Pressure Position Supine Blood Pressure Location Right Arm Pulse Ox 100 97 Oxygen Delivery Method Room Air Room Air Room Air Oxygen Flow Rate (L/min) 96 Positive well nourished and well developed General Appearance ED: well developed and NAD HEENT Reports TM's clear and moist mucous membranes normocephalic and atraumatic; Negative for trauma or tenderness Tympanic Membrane ED: Yes TM's clear Eyes PERRL and EOMs intact bilaterally General Eye ED: Negative for pale conjunctiva or scleral icterus Neck no lymphadenopathy, supple and no JVD General: Negative for tenderness Chest Wall inspection of chest normal and palpation of chest normal Chest: Negative for tenderness Resp normal respiratory effort and clear to auscultation bilaterally Effort and Inspection: Negative for respiratory distress or pain with movement Auscultation: Negative for rhonchi, wheezes or diminished lung sounds Cardio regular rate, regular rhythm, S1 normal heart sound, S2 normal heart sound and no murmurs Peripheral Pulses: pulses 2+ throughout GI normal to inspection, nondistended, normoactive bowel sounds, soft to palpation,non-tender, non-distended and no masses Back/Spine no CVA tenderness and no thoracic nor lumbar tenderness Extremity Extremity Narrative: Right foot-patient has diffuse soft tissue swelling of the foot. There is erythema and cellulitic changes noted. Patient has a wound to the plantar aspect over the area of the fourth M TP joint that has small amount of purulent drainage from it. General Extremety ED: Negative for edema General Extremity: Negative for edema Neuro oriented x3, CN's II-XII intact bilaterally, no sensory deficits noted and gait normal Sensorium / Orientation: awake, alert, oriented to person, oriented to place andoriented to time Motor Exam: strength 5/5 throughout and strength abnormal Psych mental status grossly normal Skin no rashes or lesions noted and no wounds MDM MDM MDM Narrative Medical decision making narrative: Patient presents with a diabetic foot infection. IV line established. Patient started on Unasyn and vancomycin IV. CBC with differential showed an elevated white count 11.1 with unremarkable chemistries. Lactate was normal. Blood cultures ordered. I ordered a wound culture. X-ray of the foot shows gas within the soft tissues with no evidence of osteomyelitis. Discussed case with podiatry on-call Dr. Forrest who presented to the emergency department to evaluate patient. Discussed case with hospitalist will evaluate patient for admission. Lab Data Attestation: I reviewed the patient's lab results. Labs: Laboratory Results - last 24 hr 05/04/23 11:40 WBC 11.1 H RBC 3.68 L Hgb 10.5 L Hct 32.8 L MCV 89.1 MCH 28.5 MCHC 32.0 RDW Std Deviation 52.3 H RDW Coeff of John 15.9 H Plt Count 333 MPV 9.2 Immature Gran % (Auto) 1.300 H Neut % (Auto) 73.2 H Lymph % (Auto) 14.9 L Bacon % (Auto) 10.2 H Eos % (Auto) 0.0 Baso % (Auto) 0.4 Absolute Neuts (auto) 8.1 H Absolute Lymphs (auto) 1.65 Nucleated RBC % 0 Sodium 133 L Potassium 3.8 Chloride 102 Carbon Dioxide 27.0 Anion Gap 4 L BUN 9 Creatinine 0.72 Estim Creat Clear Calc 105.98 Est GFR (MDRD) Af Amer 121 Est GFR (MDRD) Non-Af 100 BUN/Creatinine Ratio 12.5 Glucose 207 H Lactic Acid 1.9 Calcium 8.7 Radiography Diagnostic Testing: Clinical Impression(s) from Imaging Studies Foot X-Ray 05/04/23 11:34 IMPRESSION: 1. Small amounts of soft tissue air is present between the fourth and fifth proximal phalanges and in the amputation bed of the fifth digit with diffuse swelling and increased density of the soft tissues in this region. Soft tissue ulcer/open wound is suspected in these regions. Gas gangrene can also present in this manner. There is no demonstrated evidence of osteomyelitis. Electronically Signed: Sam Hendrickson MD at 11:59 EDT , Three-view x-rays of the right foot obtained interpreted by myself as soft tissue swelling with gas in the soft tissues. Radiology in agreement. There isno evidence of osteomyelitis. Discharge Plan Dx/Rx/DC Orders Clinical Impression: Diabetic foot infection, Diabetes, Leukocytosis Disposition Disposition: Acute Care Hospital [facility] Discharge Date/Time: 05/04/23 15:25 What to do if you have Problems For any increased pain, shortness of breath, bleeding, nausea or vomiting, chestpain, or any unexpected problems, contact your Primary Care Provider. Call [facility] ([phone]) or report to the closest Emergency Room. Call 911 if necessary. 05/04/23 1548 <Electronically signed by Javy Doss DO> Cosigner Signature (if applicable): CC: No Primary Care Physician ~ Signed [facility] Work Phone: 1(770) 437-848510-24-2023 History and physical note Author Rickey Giffodr [facility] May 04, 2023 1:14pm Note Date/Time May 04, 2023 1 :13pm [facility] Medical Records Department [address] [place] [id number] H&P Exam - Hospitalist 05/04/23 1309 MR#: [id number] Acct: [id number] Name: GHISLAINE GIVENS Rep #:[id number] : 1990 33 From: Rickey Gifford DO PCP: Care Physician,No Primary Status :REG ER Location: ED HPI - General General Date of Service: 05/04/23 Chief Complaint: right foot infection. HPI Narrative GHISLAINE GIVENS, is a 33 F who presents with worsening redness and pain in her right foot. Patient has had a chronic wound of her right foot that has waxed and waned but last night, became much more red, warm associated with fever and chills. She was concerned and presented to the emergency room. Patient had an x-ray of her foot that show small amounts of soft tissue air between the fourth and fifth toes. Patient was seen in consultation by Dr. Forrest, podiatry, explained to take the patient to surgery today. Patient received vancomycin in the emergency room. [facility] Medical History (Updated 05/04/23 @ 13:[address] Rickey Gifford, DO) Anxiety Asthma Constipation Depression Diabetes mellitus with diabetic polyneuropathy Elevated serum creatinine Failure of outpatient treatment Hypertension Neuropathy, diabetic Type 2 diabetes mellitus with foot ulcer Home Medications albuterol sulfate 90 mcg/actuation aerosol inhaler (Ventolin HFA) 1 inh inhalation Q4H SOB 04/06/22 [History Last Taken 06/24/22] metformin 500 mg tablet 1,000 mg PO BID DM 06/24/22 [History Last Taken 06/24/22] insulin glargine 100 unit/mL (3 mL) subcutaneous pen (Lantus Solostar U-100 Insulin) 15 unit subcut BID diabetes 08/12/22 [History Last Taken Unknown] hyoscyamine sulfate 0.125 mg sublingual tablet (Levsin/SL) 0.125 mg PO TID PRN abdominal pain #10 tabs 01/07/23 [Rx Last Taken Unknown] ondansetron 4 mg disintegrating tablet 4 mg PO Q8H PRN PRN Nausea #10 tabs 01/07/23 [Rx Last Taken Unknown] promethazine 25 mg tablet 25 mg PO TID PRN nausea and vomiting #20 tabs 01/09/23[Rx Last Taken Unknown] trazodone 300 mg tablet 300 mg PO QHS 01/12/23 [History Last Taken Unknown] bisacodyl 10 mg rectal suppository (Dulcolax (bisacodyl)) 10 mg AZ DAILY 3 days #12 ea 01/15/23 [Rx Last Taken Unknown] scopolamine base 1 mg over 3 days transdermal patch 1 patch transdermal Q3D PRN nausea and vomiting #4 ea 01/15/23 [Rx Last Taken Unknown] omeprazole 40 mg capsule,delayed release 40 mg PO BID #60 caps 01/19/23 [Rx Last Taken Unknown] dicyclomine 10 mg capsule 20 mg (2 x 10 mg) PO TIDAC #20 CAPSULES 02/08/23 [Rx Last Taken Unknown] lansoprazole 30 mg capsule,delayed release (Prevacid) 30 mg PO DAILY #14 caps 02/08/23 [Rx Last Taken Unknown] sulfamethoxazole 800 mg-trimethoprim 160 mg tablet (Bactrim DS) 1 tab PO BID 7 days #14 tabs 02/24/23 [Rx Last Taken Unknown] amoxicillin 875 mg-potassium clavulanate 125 mg tablet 1 tab PO BID 7 days #14 tabs 02/26/23 [Rx Last Taken Unknown] hydrocodone-acetaminophen 5-325mg 5mg-325mg 1 tab PO Q6H PRN PRN Pain 3 days #12TABLETS 02/26/23 [Rx Last Taken Unknown] ondansetron 4 mg disintegrating tablet 4 mg PO TID PRN nausea and vomiting #21 tabs 02/26/23 [Rx Last Taken Unknown] polyethylene glycol 3350 17 gram/dose oral powder (Miralax) 17 g PO DAILY PRN constipation #510 grams 02/26/23 [Rx Last Taken Unknown] ondansetron 4 mg disintegrating tablet 4 mg PO Q8H PRN PRN Nausea #10 tabs 03/06/23 [Rx Last Taken Unknown] promethazine 25 mg rectal suppository (Promethegan) 25 mg AZ Q6H PRN PRN Nausea #6 supp 04/13/23 [Rx Last Taken Unknown] promethazine 25 mg tablet 25 mg PO Q6H PRN PRN Nausea #10 TABLETS 04/13/23 [Rx Last Taken Unknown] dicyclomine 20 mg tablet 20 mg PO TID PRN abdominal pain #30 tabs 04/14/23 [Rx Last Taken Unknown] Allergy/AdvReac Type Severity Reaction Status Date / Time No Known Allergies Allergy Verified 05/04/23 10:01 Family History Other Bleeding disorder Cancer Diabetes Hypertension Surgical History Hx of foot surgery Social History Smoking Status: Current every day smoker tobacco type: cigarettes alcohol intake: never substance use type: does not use what type of physical activity do you participate in: none ROS ROS Narrative All review of systems were negative except as mentioned above in the history of present illness and the other review of systems. Vital Signs Vital Signs Vital Signs: 05/04/23 09:59 05/04/23 12:21 Temperature 36.6 C 37.2 C Temperature Source Temporal Oral Pulse Rate 123 H 116 H Respiratory Rate 18 18 Blood Pressure 122/66 H 122/66 H Blood Pressure Mean 84 84 Pulse Ox 100 96 Oxygen Delivery Method Room Air Room Air Weight Weight: 94.2 kg Body Mass Index (BMI) 33.5 Physical Exam Const alert and no apparent distress HEENT normocephalic and head/scalp atraumatic Resp normal respiratory effort, no retractions, no use of accessory muscles and clearto auscultation bilaterally Cardio regular rate, regular rhythm, S1 normal heart sound and S2 normal heart sound GI normal to inspection, nondistended, normoactive bowel sounds, soft to palpation,non-tender and non-distended Extremity full ROM Extremity Narrative: Swelling on the dorsum of her right foot. Absent the fourth toe on the right foot. Neuro oriented x3 and CN's II-XII intact bilaterally Results Lab / Micro Data 05/04/23 11:40 05/04/23 11:40 Labs: Laboratory Results - last 24 hr 05/04/23 11:40: WBC 11.1 H, RBC 3.68 L, Hgb 10.5 L, Hct 32.8 L, MCV 89.1, MCH 28.5, MCHC 32.0, RDW Std Deviation 52.3 H, RDW Coeff of John 15.9 H, Plt Count 333, MPV 9.2, Immature Gran % (Auto) 1.300 H, Neut % (Auto) 73.2 H, Lymph % (Auto) 14.9 L, Bacon % (Auto) 10.2 H, Eos % (Auto) 0.0, Baso % (Auto) 0.4, Absolute Neuts (auto) 8.1 H, Absolute Lymphs (auto) 1.65, Nucleated RBC % 0, Sodium 133 L, Potassium 3.8, Chloride 102, Carbon Dioxide 27.0, Anion Gap 4 L, BUN 9, Creatinine 0.72, Estim Creat Clear Calc 105.98, Est GFR (MDRD) Af Amer 121, Est GFR (MDRD) Non-Af 100, BUN/Creatinine Ratio 12.5, Glucose 207 H, LacticAcid 1.9, Calcium 8.7 Radiology Impression Foot X-Ray 05/04/23 11:34 IMPRESSION: 1. Small amounts of soft tissue air is present between the fourth and fifth proximal phalanges and in the amputation bed of the fifth digit with diffuse swelling and increased density of the soft tissues in this region. Soft tissue ulcer/open wound is suspected in these regions. Gas gangrene can also present in this manner. There is no demonstrated evidence of osteomyelitis. Electronically Signed: Sam Hendrickson MD at 11:59 EDT Reading Location ID and State: [facility] / [place] , Service support , Assessment & Plan Assessment/Plan (1) Diabetic foot infection: PLAN: With what appears to be gas on the x-ray. Patient has been medically cleared to proceed with surgery. Patient seen by Dr. Forrest of podiatry and plan taken the patient to surgery today. We will continue with antibiotics with vancomycin and also add piperacillin/tazobactam Follow-up cultures Nonweightbearing on right lower extremity until okayed by podiatry. PLAN: Plan Chronic conditions * Diabetes mellitus type 2: Continue with glargine. Hold metformin for the time being. Add sliding scale insulin. * Diabetic neuropathy VTE prophylaxis with enoxaparin. Charges/Coding Visit Charges Inpatient E&M: 84259 Init Hosp L2 05/04/23 1314 <Electronically signed by Rickey Gifford DO> Cosigner Signature (if applicable): CC: Dr. Rickey Gifford DO; No Primary Care Physician~ Signed [facility] Work Phone: 1(704) 112-904610-24-2023 History and physical note Author Rickey Gifford [facility] May 04, 2023 1:14pm Note Date/Time May 04, 2023 1 :13pm [facility] Medical Records Department [address] [place] [id number] H&P Exam - Hospitalist 05/04/23 1309 MR#: [id number] Acct: [id number] Name: GHISLAINE GIVENS Rep #:[id number] : 1990 33 From: Rickey Gifford DO PCP: Care Physician,No Primary Status :REG ER Location: ED HPI - General General Date of Service: 05/04/23 Chief Complaint: right foot infection. HPI Narrative GHISLAINE GIVENS, is a 33 F who presents with worsening redness and pain in her right foot. Patient has had a chronic wound of her right foot that has waxed and waned but last night, became much more red, warm associated with fever and chills. She was concerned and presented to the emergency room. Patient had an x-ray of her foot that show small amounts of soft tissue air between the fourth and fifth toes. Patient was seen in consultation by Dr. Forrest, podiatry, explained to take the patient to surgery today. Patient received vancomycin in the emergency room. [facility] Medical History (Updated 05/04/23 @ 13:[address] Rickey Gifford, DO) Anxiety Asthma Constipation Depression Diabetes mellitus with diabetic polyneuropathy Elevated serum creatinine Failure of outpatient treatment Hypertension Neuropathy, diabetic Type 2 diabetes mellitus with foot ulcer Home Medications albuterol sulfate 90 mcg/actuation aerosol inhaler (Ventolin HFA) 1 inh inhalation Q4H SOB 04/06/22 [History Last Taken 06/24/22] metformin 500 mg tablet 1,000 mg PO BID DM 06/24/22 [History Last Taken 06/24/22] insulin glargine 100 unit/mL (3 mL) subcutaneous pen (Lantus Solostar U-100 Insulin) 15 unit subcut BID diabetes 08/12/22 [History Last Taken Unknown] hyoscyamine sulfate 0.125 mg sublingual tablet (Levsin/SL) 0.125 mg PO TID PRN abdominal pain #10 tabs 01/07/23 [Rx Last Taken Unknown] ondansetron 4 mg disintegrating tablet 4 mg PO Q8H PRN PRN Nausea #10 tabs 01/07/23 [Rx Last Taken Unknown] promethazine 25 mg tablet 25 mg PO TID PRN nausea and vomiting #20 tabs 01/09/23[Rx Last Taken Unknown] trazodone 300 mg tablet 300 mg PO QHS 01/12/23 [History Last Taken Unknown] bisacodyl 10 mg rectal suppository (Dulcolax (bisacodyl)) 10 mg AZ DAILY 3 days #12 ea 01/15/23 [Rx Last Taken Unknown] scopolamine base 1 mg over 3 days transdermal patch 1 patch transdermal Q3D PRN nausea and vomiting #4 ea 01/15/23 [Rx Last Taken Unknown] omeprazole 40 mg capsule,delayed release 40 mg PO BID #60 caps 01/19/23 [Rx Last Taken Unknown] dicyclomine 10 mg capsule 20 mg (2 x 10 mg) PO TIDAC #20 CAPSULES 02/08/23 [Rx Last Taken Unknown] lansoprazole 30 mg capsule,delayed release (Prevacid) 30 mg PO DAILY #14 caps 02/08/23 [Rx Last Taken Unknown] sulfamethoxazole 800 mg-trimethoprim 160 mg tablet (Bactrim DS) 1 tab PO BID 7 days #14 tabs 02/24/23 [Rx Last Taken Unknown] amoxicillin 875 mg-potassium clavulanate 125 mg tablet 1 tab PO BID 7 days #14 tabs 02/26/23 [Rx Last Taken Unknown] hydrocodone-acetaminophen 5-325mg 5mg-325mg 1 tab PO Q6H PRN PRN Pain 3 days #12TABLETS 02/26/23 [Rx Last Taken Unknown] ondansetron 4 mg disintegrating tablet 4 mg PO TID PRN nausea and vomiting #21 tabs 02/26/23 [Rx Last Taken Unknown] polyethylene glycol 3350 17 gram/dose oral powder (Miralax) 17 g PO DAILY PRN constipation #510 grams 02/26/23 [Rx Last Taken Unknown] ondansetron 4 mg disintegrating tablet 4 mg PO Q8H PRN PRN Nausea #10 tabs 03/06/23 [Rx Last Taken Unknown] promethazine 25 mg rectal suppository (Promethegan) 25 mg AZ Q6H PRN PRN Nausea #6 supp 04/13/23 [Rx Last Taken Unknown] promethazine 25 mg tablet 25 mg PO Q6H PRN PRN Nausea #10 TABLETS 04/13/23 [Rx Last Taken Unknown] dicyclomine 20 mg tablet 20 mg PO TID PRN abdominal pain #30 tabs 04/14/23 [Rx Last Taken Unknown] Allergy/AdvReac Type Severity Reaction Status Date / Time No Known Allergies Allergy Verified 05/04/23 10:01 Family History Other Bleeding disorder Cancer Diabetes Hypertension Surgical History Hx of foot surgery Social History Smoking Status: Current every day smoker tobacco type: cigarettes alcohol intake: never substance use type: does not use what type of physical activity do you participate in: none ROS ROS Narrative All review of systems were negative except as mentioned above in the history of present illness and the other review of systems. Vital Signs Vital Signs Vital Signs: 05/04/23 09:59 05/04/23 12:21 Temperature 36.6 C 37.2 C Temperature Source Temporal Oral Pulse Rate 123 H 116 H Respiratory Rate 18 18 Blood Pressure 122/66 H 122/66 H Blood Pressure Mean 84 84 Pulse Ox 100 96 Oxygen Delivery Method Room Air Room Air Weight Weight: 94.2 kg Body Mass Index (BMI) 33.5 Physical Exam Const alert and no apparent distress HEENT normocephalic and head/scalp atraumatic Resp normal respiratory effort, no retractions, no use of accessory muscles and clearto auscultation bilaterally Cardio regular rate, regular rhythm, S1 normal heart sound and S2 normal heart sound GI normal to inspection, nondistended, normoactive bowel sounds, soft to palpation,non-tender and non-distended Extremity full ROM Extremity Narrative: Swelling on the dorsum of her right foot. Absent the fourth toe on the right foot. Neuro oriented x3 and CN's II-XII intact bilaterally Results Lab / Micro Data 05/04/23 11:40 05/04/23 11:40 Labs: Laboratory Results - last 24 hr 05/04/23 11:40: WBC 11.1 H, RBC 3.68 L, Hgb 10.5 L, Hct 32.8 L, MCV 89.1, MCH 28.5, MCHC 32.0, RDW Std Deviation 52.3 H, RDW Coeff of John 15.9 H, Plt Count 333, MPV 9.2, Immature Gran % (Auto) 1.300 H, Neut % (Auto) 73.2 H, Lymph % (Auto) 14.9 L, Bacon % (Auto) 10.2 H, Eos % (Auto) 0.0, Baso % (Auto) 0.4, Absolute Neuts (auto) 8.1 H, Absolute Lymphs (auto) 1.65, Nucleated RBC % 0, Sodium 133 L, Potassium 3.8, Chloride 102, Carbon Dioxide 27.0, Anion Gap 4 L, BUN 9, Creatinine 0.72, Estim Creat Clear Calc 105.98, Est GFR (MDRD) Af Amer 121, Est GFR (MDRD) Non-Af 100, BUN/Creatinine Ratio 12.5, Glucose 207 H, LacticAcid 1.9, Calcium 8.7 Radiology Impression Foot X-Ray 05/04/23 11:34 IMPRESSION: 1. Small amounts of soft tissue air is present between the fourth and fifth proximal phalanges and in the amputation bed of the fifth digit with diffuse swelling and increased density of the soft tissues in this region. Soft tissue ulcer/open wound is suspected in these regions. Gas gangrene can also present in this manner. There is no demonstrated evidence of osteomyelitis. Electronically Signed: Sam Hendrickson MD at 11:59 EDT , Assessment & Plan Assessment/Plan (1) Diabetic foot infection: PLAN: With what appears to be gas on the x-ray. Patient has been medically cleared to proceed with surgery. Patient seen by Dr. Forrest of podiatry and plan taken the patient to surgery today. We will continue with antibiotics with vancomycin and also add piperacillin/tazobactam Follow-up cultures Nonweightbearing on right lower extremity until okayed by podiatry. PLAN: Plan Chronic conditions * Diabetes mellitus type 2: Continue with glargine. Hold metformin for the time being. Add sliding scale insulin. * Diabetic neuropathy VTE prophylaxis with enoxaparin. Charges/Coding Visit Charges Inpatient E&M: 07849 Init Hosp L2 05/04/23 1314 <Electronically signed by Rickey Gifford DO> Cosigner Signature (if applicable): CC: Dr. Rickey Gifford DO; No Primary Care Physician~ Signed [facility] Work Phone: 1(236) 744-767810-05-2023 History of Present illness Narrative* Abdirizak Peña APRN.AVIONIC TECHNICIAN - 04/15/2023 11:13 AM EDT Patient triaged at [facility]. Here today with abd pain and sob, patients crying. Breathing easy but appears in pain. O2 100% on RA. Will refer to ER, declines squad, friend to drive to ER. documented in this encounterChildren'S [facility]09-15-2023 History of Present illness Narrative* Claritza Sierra - 03/26/2023 2:21 PM EDT POPULATION HEALTH NAVIGATION OUTREACH Action/[facility] Support: Called pt to schedule an appt in Pain Management. Lvm for pt to call [phone] for scheduling. Patient Identified by Name and : NO Outreach Outcome/Action Unable to reach patient: Left message Did you use a PCP flex slot to schedule this appointment? No Reason for Outreach Care Gap or Scheduling/Wellness visits Payer: Payor: [place] [employer] / Plan: [employer] MEDICAID [facility] / Product Type: Medicaid / Care Gap Reviewed:: Specialty Scheduling Reminder: Reminder note to check Health Maintenance for items below Health Maintenance items due: Hepatitis B Vaccine(1 of 3 - 3-dose series) Never done Hepatitis C Screening Never done HIV Screening Never done DTaP,Tdap,Td Vaccine(1 - Tdap) Never done Pneumococcal Vaccine(2 - PCV) due on 03/06/2014 Dilated Retinal Exam due on 03/31/2014 Urine Albumin:Creatinine Ratio due on 04/12/2014 LDL Cholesterol due on 06/07/2014 Pap Testing due on 05/03/2018 Diabetic Foot Exam due on 03/10/2020 Covid-19 Vaccine(2 - Moderna series) due on 08/25/2021 HPV Testing Never done Influenza Vaccine(1) due on 03/12/2023 Navigation Signature: Claritza Sierra March 26, 2023 2:22 PM documented in this encounterChildren'S [facility]09-01-2023 History of Present illness Narrative* Pilar Magdaleno APRN.CNP - 03/12/2023 12:12 PM EDT Please let patient know Dr. Sun is not in network. I have placed an order for pain management through the [facility]. documented in this encounterChildren'S Hospital For [facility]08-29-2023 Miscellaneous Notes* Telephone Encounter - Milagros Cloud RN - 03/09/2023 12:35 PM EDT Boyfriend calls and not listed on chart. Requested to speak to patient. Patient requesting pain management referral be faxed to Dr. Lr. Faxed per request to [phone]. Milagros Cloud RN documented in this encounterChildren'S Hospital For Rehabilitation08-24-2023 NoteHNO ID: [id number] Author: Kelley Lopez MD Service: ? Author Type: Physician Type: Progress Notes Filed: 03/11/2023 7:18 AM Note Text: Documentation Query Based on your medical judgment of the clinical indicators outlined below, please clarify the condition: (Please type X next to your response and sign) Clinical indicators: 03.03.23 Gastroenterology note AVIONIC TECHNICIAN: Plan: Nausea with vomiting Generalized abdominal pain Constipation Symptoms likely multifactorial including hyperglycemia vs constipation vs gastritis see on EGD on 02/19/2023.Continue PPI 40 mg BID on discharge Continue supportive care with anti-emetics and pain control as needed per primary team. Given recent EGD on 02/19/2023, will hold off on repeat EGD at this time. Diet as tolerated... 03.03.23 Provider Progress note: Plan: GI has signed off. CT abdomen is OK.Physical examination is benign.Soft and non tender... 03.04.23 Discharge summary note: past medical history of intractable nausea and vomiting, uncontrolled insulin-dependent diabetes mellitus, previous marijuana and tobacco abuse, depression and anxiety, severe protein calorie malnutrition presents with complaint of 3 months of nausea, vomiting and abdominal pain....was diagnosed with cannabis cyclical vomiting however ... stopped smoking marijuana 3 months ago ... symptoms persist... Problem List: ...Intractable nausea and vomiting...GI was consulted.Gastric emptying studies as outpatient.Symptom control.,..Abdominal pain POA: Yes No narcotics. Physical examination is benign...has psychiatric problems.... Please clarify the diagnosis associated with the following clinical indicators Abdominal Pain due to DM with Hyperglycemia Abdominal pain due to constipation Abdominal pain due to gastritis Intractable nausea and vomiting X Other, please specify___due to psychiatric problems [facility]08-24-2023 NoteHNO ID: [id number] Author: Kelley Lopez MD Service: ? Author Type: Physician Type: Progress Notes Filed: 03/04/2023 11:59 AM Note Text: PROGRESS NOTE - INTERNAL MEDICINE PATIENT NAME: Ghislaine Givens Patient Active Hospital Problem List: Intractable nausea and vomiting (02/18/2023) DM2 (diabetes mellitus, type 2) (HCC) (03/16/2013) HLD (hyperlipidemia) (11/27/2013) Obesity, Class I, BMI 30-34.9 (02/18/2023) Abdominal pain (03/01/2023) Constipation (03/02/2023) Anxiety and depression (03/02/2023) Borderline personality disorder (HCC) (03/02/2023) HTN PLAN: Hemodynamically is stable. Has been walking a lot. Gets anxious. Seen by psych and GI. Discussed with manager social services/case operator. OK to discharge the patient. Rest of management as outpatient. I personally spent more than 30 minutes for discharge of this patient. Discussed with unit PA/AVIONIC TECHNICIAN about care plans. Recommended to see her psychiatrist as outpatient. Has had high BP readings. Will add Losartan. Is diabetic too.. Physical Examination: GENERAL: alert, no distress, crying non stop. SKIN: See nurse's assessment. NECK: no jugulovenous distention, no carotid bruits, carotid pulse normal contour, supple LUNGS: Lungs clear to auscultation. Good diaphragmatic excursion. CARDIAC: Normal S1 and S2; no rubs, murmurs, or gallops ABDOMEN: Abdomen soft, non-tender. BS normal. No masses or organomegaly. Morbidly obese EXTREMETIES: Extremities normal. No deformities, edema, clubbing or skin discoloration. NEURO: No gross neurological deficit. INTERVAL HISTORY OF PRESENT ILLNESS: Patient does not feel good. Complains of abdominal pain and nausea. No fever or chills. No dysuria,frequency or urgency, no hematuria. Patient Vitals for the past 24 hrs: BP Temp Temp src Pulse Resp SpO2 03/04/23 0902 149/107 36.7 ?C (98.1 ?F) Oral 70 17 98 % 03/04/23 0423 149/110 36.2 ?C (97.2 ?F) Oral 77 14 100 % 03/03/232010 139/101 -- Axillary 90 16 100 % 03/03/23 1711 136/99 36.5 ?C (97.7 ?F) Oral 85 18 100 % Body mass index is 31.32 kg/m?. Last 2 Encounter Wt Readings: Date: Wt: 03/01/2023 90.7 kg (200 lb) 03/01/2023 90.1 kg (198 lb 10.2 oz) DATA: Diagnostic tests reviewed for today's visit: Most recent labs Most recent imaging Current Facility-Administered Medications Medication Dose Route Frequency NaCl 0.9% iv flush bag 20 mL INTRAVENOUS PRN albuterol 2.5 mg /3 mL (0.083 %) 2.5 mg (PROVENTIL) 2.5 mg INHALATION q 4 H PRN insulin glargine 10 Units pen (long acting) 10 Units SUBCUTANEOUS BID 8A/BEDTIME bacitracin 500 unit/gram topical ointment TOPICAL BID pantoprazole DR 40 mg tab(s) (PROTONIX) 40 mg ORAL BID AC (0600/1600) polyethylene glycol 3350 17 g packet 17 g ORAL DAILY insulin lispro injection (rapid acting) (HumaLOG) SUBCUTANEOUS AT BEDTIME dextrose 40 % 15 g 15 g ORAL PRN Or glucagon 1 mg injection 1 mg INTRAMUSCULAR PRN Or dextrose 10% iv bolus 12.5 g INTRAVENOUS PRN heparin 5,000 Units injection 5,000 Units SUBCUTANEOUS q 12 H ondansetron 4 mg tab(s) (ZOFRAN) 4 mg ORAL q 6 H PRN Or ondansetron (PF) 4 mg injection (ZOFRAN) 4 mg INTRAVENOUS q 6 H PRN prochlorperazine 5 mg injection (COMPAZINE) 5 mg INTRAVENOUS q 6 H PRN acetaminophen 650 mg tab(s) (TYLENOL) 650 mg ORAL q 6 H PRN insulin lispro injection (rapid acting) (HumaLOG) SUBCUTANEOUS w MEALS metFORMIN 500 mg tab(s) (GLUCOPHAGE) 500 mg ORAL BID w MEALS iv contrast (radiology procedure) INTRAVENOUS DIRECTED PRN traZODone (DESYREL) tab(s) 150 mg 150 mg ORAL AT BEDTIME NaCl 0.9% with 20 mEq/L KCl iv infusion 75 mL/hr INTRAVENOUS CONTINUOUS potassium chloride ER 40 mEq tab(s) (KLOR-CON) 40 mEq ORAL q 4 H losartan 50 mg tab(s) (COZAAR) 50 mg ORAL DAILY SIGNATURE: Kelley Lopez MD DATE: March 04, 2023 TIME: 11:57 [facility]08-24-2023 NoteHNO ID: [id number] Author: Cary Pino RN Service: Care Management Author Type: Registered Nurse Type: Care Mgt Progress Note Filed: 03/04/2023 11:40 AM Note Text: CARE MANAGEMENT DISCHARGE NOTE SERVICE DATE: March 04, 2023 SERVICE TIME: 11:26 AM Admission Date: 03/01/2023 LOS: 3 days Discharge Arrangement Discharge Arrangement: Home with Self Care Services Arranged Medical Services: Other: See Comment (No skilled needs identfied) Caregiver Assessment Caregiver is ready, willing and able to meet the patient's needs as recommended by the inter-professional team: No Caregiver needed Transportation Arrangements Transportation Arrangements: [employer] Agency and Phone #:: [employer] [phone] Date of Trip: 03/04/23 Time of Trip: 1730 Type of Service: Wheelchair Is Patient Medicaid Pending?: No Was transportation financial coverage discussed with family?: Patient Paper Stripper Location: [facility] Destination: Home Financial Care Management Responsibility: None Handoff Communication: Handoff to: Primary Care Physician Primary Care Physician Name/Phone: Dr. Solorzano Patient stable for discharge to home self-care with outpatient follow-up with PCP. The discharge instructions to be reviewed with the patient prior to discharge by bedside nursing. The discharge plan was discussed with the physician and during our care coordination rounds. Notes summary of care and discharge summary to be routed to next provider. Discharge order and medical clearance needed prior to discharge Discharge Information Row Name ED to Hosp-Admission (Current) from 03/01/2023 in [facility] Observation Unit Medical Follow-Up Appointment Specialty Psychaitry Behavior Health/Jose L cMcarthy Provider Name [facility] Address [address], [place] [address] Additional Instructions Please call for appointment to establish physician for mental health SIGNATURE: Cary Pino RN PATIENT NAME: Ghislaine Givens DATE: March 04, 2023 TIME: 11:26 AM CONTACT #: [phone] NoteHNO ID: [id number] Author: Cary Pino RN Service: Care Management Author Type: Registered Nurse Type: Care Mgt Progress Note Filed: 03/04/2023 11:26 AM Note Text: CARE MANAGEMENT PROGRESS NOTE SERVICE DATE: 03/04/2023 SERVICE TIME: 11:25 AM LOS: 3 days IMM Follow Up Copy Given: No Reason: Other: See Comment ([place] Medicaid) SIGNATURE: Cary Pino RN PATIENT NAME: Ghislaine Givens DATE: March 04, 2023 TIME: 11:25 AM PAGER/CONTACT #: [phone] Note HNO ID: [id number] Author: Kelley Lopez MD Service: ? Author Type: Physician Type: Progress Notes Filed: 03/03/2023 3:19 PM Note Text: PROGRESS NOTE - INTERNAL MEDICINE PATIENT NAME: Ghislaine Givens Patient Active Hospital Problem List: Intractable nausea and vomiting (02/18/2023) DM2 (diabetes mellitus, type 2) (HCC) (03/16/2013) HLD (hyperlipidemia) (11/27/2013) Obesity, Class I, BMI 30-34.9 (02/18/2023) Abdominal pain (03/01/2023) Constipation (03/02/2023) Anxiety and depression (03/02/2023) Borderline personality disorder (HCC) (03/02/2023) PLAN: GI has signed off. CT abdomen is OK. Physical examination is benign. Soft and non tender. Seen by psychiatrist too. Signed off. Patient clearly has psychiatric problems. She told me has seen psychiatrist in the past and was told has depression, anxiety, bipolar and borderline personality disorder. She told psychiatrist totally different history, that she has never seen a psychiatrist in the past. Hemodynamically is stable. Medically not much more can be done. Plan to discharge in AM. Discussed with manager social services/case operator. Advance diet. Physical Examination: GENERAL: alert, no distress, crying non stop. SKIN: See nurse's assessment. NECK: no jugulovenous distention, no carotid bruits, carotid pulse normal contour, supple LUNGS: Lungs clear to auscultation. Good diaphragmatic excursion. CARDIAC: Normal S1 and S2; no rubs, murmurs, or gallops ABDOMEN: Abdomen soft, non-tender. BS normal. No masses or organomegaly. Morbidly obese EXTREMETIES: Extremities normal. No deformities, edema, clubbing or skin discoloration. NEURO: No gross neurological deficit. INTERVAL HISTORY OF PRESENT ILLNESS: Patient does not feel good. Complains of abdominal pain and nausea. No fever or chills. No dysuria,frequency or urgency, no hematuria. Patient Vitals for the past 24 hrs: BP Temp Temp src Pulse Resp SpO2 03/03/23 0825 131/85 36.6 ?C (97.9 ?F) Oral 72 16 98 % 03/03/23 0506 135/82 -- -- 67 -- -- 03/03/23 0454 135/109 36.4 ?C (97.5 ?F) Axillary 87 18 99 % 03/03/23 0056 143/92 36.7 ?C (98.1 ?F) Oral 74 20 99 % 03/02/23 1942 124/72 36.9 ?C (98.4 ?F) Oral 72 18 97 % 03/02/23 1703 145/113 36.5 ?C (97.7 ?F) Oral 91 18 100 % Body mass index is 31.32 kg/m?. Last 2 Encounter Wt Readings: Date: Wt: 03/01/2023 90.7 kg (200 lb) 03/01/2023 90.1 kg (198 lb 10.2 oz) DATA: Diagnostic tests reviewed for today's visit: Most recent labs Most recent imaging Current Facility-Administered Medications Medication Dose Route Frequency NaCl 0.9% iv flush bag 20 mL INTRAVENOUS PRN albuterol 2.5 mg /3 mL (0.083 %) 2.5 mg (PROVENTIL) 2.5 mg INHALATION q 4 H PRN insulin glargine 10 Units pen (long acting) 10 Units SUBCUTANEOUS BID 8A/BEDTIME bacitracin 500 unit/gram topical ointment TOPICAL BID pantoprazole DR 40 mg tab(s) (PROTONIX) 40 mg ORAL BID AC (0600/1600) polyethylene glycol 3350 17 g packet 17 g ORAL DAILY insulin lispro injection (rapid acting) (HumaLOG) SUBCUTANEOUS AT BEDTIME dextrose 40 % 15 g 15 g ORAL PRN Or glucagon 1 mg injection 1 mg INTRAMUSCULAR PRN Or dextrose 10% iv bolus 12.5 g INTRAVENOUS PRN heparin 5,000 Units injection 5,000 Units SUBCUTANEOUS q 12 H ondansetron 4 mg tab(s) (ZOFRAN) 4 mg ORAL q 6 H PRN Or ondansetron (PF) 4 mg injection (ZOFRAN) 4 mg INTRAVENOUS q 6 H PRN prochlorperazine 5 mg injection (COMPAZINE) 5 mg INTRAVENOUS q 6 H PRN acetaminophen 650 mg tab(s) (TYLENOL) 650 mg ORAL q 6 H PRN insulin lispro injection (rapid acting) (HumaLOG) SUBCUTANEOUS w MEALS metFORMIN 500 mg tab(s) (GLUCOPHAGE) 500 mg ORAL BID w MEALS iv contrast (radiology procedure) INTRAVENOUS DIRECTED PRN enteric contrast (radiology procedure) ORAL DIRECTED PRN traZODone (DESYREL) tab(s) 150 mg 150 mg ORAL AT BEDTIME SIGNATURE: Kelley Lopez MD DATE: March 03, 2023 TIME: 3:15 [facility]08-23-2023 NoteHNO ID: [id number] Author: Frida Scott APRN.AVIONIC TECHNICIAN Service: Gastroenterology Author Type: Nurse Practitioner Type: Plan of Care Filed: 03/03/2023 11:30 AM Note Text: DEPARTMENT OF GASTROENTEROLOGY AND HEPATOLOGY [facility] INPATIENT VISIT DATE AND TIME 03/03/23 11:16 AM PLAN OF CARE PATIENT NAME: Ghislaine Givens Interval History: No acute events overnight, patient c/o nausea but ambulating in halls and wants to go home. Patient refusing IVF and miralax per RN CTAP completed: IMPRESSION: No acute abdominal or pelvic process is identified. No evidence for bowel obstruction. Normal appendix. Nonspecific abdominal and pelvic lymphadenopathy. Tree-in-bud type nodular opacities within the lower lobes, bilaterally, likely infectious or inflammatory in etiology. Consider prior aspiration as a diagnostic possibility. (Some elements copied from my colleague's note, dated 03/02, which have been reviewed and updated where appropriate. All reflect current medical decision making from today, 03/03.) Impression: 33 yo female GI consulted for abdominal pain wit nausea and vomiting. Pmhx includes bipolar 1 disorder, depression, DMII, insomnia and chronic abdominal pain/nausea/vomiting. She had recent EGD on 02/19/2023 showing mild gastritis and an esophageal ulcer at [facility]. Patient presented from outpatient GI clinic in apparent acute distress with vomiting to ED. Reported possible blood in emesis and unable to quantify number of times she vomited. Reported 8/10 abdominal pain with concurrent heart burn, intermittent CP with SOB. She denied dysphagia, fevers, chills, night sweats, diarrhea, melena or hematochezia. Plan: Nausea with vomiting Generalized abdominal pain Constipation -Symptoms likely multifactorial including hyperglycemia vs constipation vs gastritis see on EGD on 02/19/2023. -Continue PPI 40 mg BID on discharge -Continue supportive care with anti-emetics and pain control as needed per primary team. -Given recent EGD on 02/19/2023, will hold off on repeat EGD at this time. -Diet as tolerated GI will sign off at this time. Thank you for consult and re-consult as needed. SIGNATURE: Frida Scott APRN.AVIONIC TECHNICIAN PAGER/CONTACT #: For concerns during days 7a-5p, contact SHIPFITTERS SUPERVISOR directly [phone] Please page [phone] for covering attending concernsCedar County [facility]08-22-2023 Telephone encounter Note* Telephone Encounter - Almita Kelly PA-C - 03/02/2023 2:30 PM EDT Hi, The patient needs outpatient GES for persistent nausea and vomiting once optimized. Orders placed. The patient is a Dr. Doran patient and should follow- up with him. Thanks! Almita Kelly PA-C Gastroenterology and Hepatology [facility]08-[facility] Miscellaneous Notes* Telephone Encounter - Almita Kelly PA-C - 03/02/2023 2:30 PM EDT Hi, The patient needs outpatient GES for persistent nausea and vomiting once optimized. Orders placed. The patient is a Dr. Doran patient and should follow- up with him. Thanks! Almita Kelly PA-C Gastroenterology and Hepatology documented in this encounterChildren'S Hospital For Rehabilitation08-22-2023 History of Present illness Narrative* Claritza Sierra - 03/02/2023 1:27 PM EDT POPULATION HEALTH NAVIGATION OUTREACH Action/[place] Support: Called pt to schedule an appt in Pain Management. No voicemail, unable to lvm Patient Identified by Name and : NO Outreach Outcome/Action Unable to reach patient: Phone number not valid / voicemail full Did you use a PCP flex slot to schedule this appointment? No Reason for Outreach Care Gap or Scheduling/Wellness visits Payer: Payor: [place] [employer] / Plan: [employer] MEDICAID [facility] / Product Type: Medicaid / Care Gap Reviewed:: Specialty Scheduling Reminder: Reminder note to check Health Maintenance for items below Health Maintenance items due: HEPATITIS B(1 of 3 - 3-dose series) Never done HEPATITIS C SCREENING Never done HIV SCREENING Never done DTAP,TDAP,TD(1 - Tdap) Never done PNEUMOCOCCAL(2 - PCV) due on 03/06/2014 DILATED RETINAL EXAM due on 03/31/2014 URINE ALBUMIN:CREATININE RATIO due on 04/12/2014 LDL CHOLESTEROL due on 06/07/2014 PAP TESTING due on 05/03/2018 DIABETIC FOOT EXAM due on 03/10/2020 COVID-19 VACCINE(2 - Moderna series) due on 08/25/2021 HPV TESTING Never done DEPRESSION ASSESSMENT Never done Navigation Signature: Claritza Sierra March 02, 2023 1:27 PM documented in this encounterChildren'S Hospital [facility]08-22-2023 NoteHNO ID: [id number] Author: Ghislaine Mancilla RN Service: ? Author Type: Registered Nurse Type: Progress Notes Filed: 03/02/2023 5:47 PM Note Text: IV access lost. X2 RN attempted to get new access with no success. AMET and NOM notified and states will come and attempt soon. SHIPFITTERS SUPERVISOR notified via secure chat. Patient also complains of pain for second time this shift and SHIPFITTERS SUPERVISOR notified for second time as well. States tylenol did not work when given during morning medication rounds. Patient now walking halls as she states movement helps with pain at times. Informed SHIPFITTERS SUPERVISOR of patient calus/wound to right foot as well as toe nail to fourth digit causing pain, swelling, discolored. Asked for podiatry consult. No order placed. Primary at bedside this morning did talk with patient about toe and foot as well. 1400 Patient sitting up at side of bed drinking miralax mixed in powerade as well as coffee and tolerating well. No pain reported at this time and tolerating liquids without emesis. No BM reported. Instructed patient to call when she has a BM so RN is informed and can document. 1645 Patient having large emesis in bed in emesis bag. Emesis brown and bile colored. Patient did recently have two cups of coffee which seems to be what has come back up. Unable to tolerate MOVIPREP at this time due to emesis. Zofran given as compazine was given earlier for nausea. Patient refusing IVF at this time. Walking halls when not having emesis. 1710 Patient having another emesis on while going to with transport. GI doctor made aware and MOVIPREP will be moved to shift commander to attempt at a later time. As patient states she cannot tolerate drinking. 1730 Patient ordered oral contrast dye with CT. field map technician states patient refusing to drink oral contrast. GI made aware via secure chat but no changes to orders made at this time. Patient will be sent to room with contrast dye per field map technician. If pt drinks contrast and can keep in her body CT asked to be called and patient will then have the scan.[facility] 03-02-2023 NoteHNO ID: [id number] Author: Cary Pino, RYNE Service: Care Management Author Type: Registered Nurse Type: Care Mgt Initial Assessment Filed: 03/02/2023 10:24 AM Note Text: CARE MANAGEMENT: ASSESSMENT AND DISCHARGE PLAN SERVICE DATE: March 02, 2023 SERVICE TIME: 8:46 AM PCP: Amy Solorzano NP Primary Contact: Extended Emergency Contact Information Primary Emergency Contact: Jessie Givens Relation: Aunt Secondary Emergency Contact: GivensRhona forbes Relation: Grandparent Admission Status: Inpatient Insurance Provider: [employer] MEDICA[employer] OF [place] Discharge Planning requested by: Per Department Practice Potential Transition Plans Home Advance Directives Current Advance Directive: None 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 Attempted to Assist with AD Completion: Yes Action: Patient Unwilling Current Living Arrangements and Support Lives with: Type of Residence: Private Residence (House) Does the patient have to climb stairs at home?: Yes;stairs outside the home Support: How do you manage to accomplish the following: Independent: Ambulation;Bathe/Shower;Dress;Meals/Meal Prep;Going to the bathroom;Medication Management;Transportation to appointments/community Current Services/Equipment Current Post-Acute Service(s): None Discharge Planning Patient Goal(s): General wellness, Be able to go home [place] of Choice Explained: [place] of Choice Given: No Reason Not Given: No placements necessary Are you interested in bedside delivery of your medications? No Discharge Planning Participant(s): Patient Patient/Family Comments: Caregiver Assessment: Caregiver is ready, willing and able to meet the patient's needs as recommended by the inter-professional team: No Caregiver needed Transport at Discharge: [employer] transport Needs Prior to Discharge: Needs Prior to Discharge: Ready for Discharge;Other: See Comment (medical clearance) Post-Acute Discharge Plan: Home self care with outpatient follow-up with PCp Ms Givens admitted from the ED for complaints of nausea and vomiting. Seen at Dr Reyna's office for 1st visit and sent to ED. Home independent PCP Dr Sophy Gibbons. Patient lives with boyfriend. Uses insurance for transport to appointment. Does not see anyone for mental health. No care management needs identified. This patient has been screened for Care Management Transitional Planning Services. At this time, it does not appear this patient will require transition planning services. Should this change, and the patient require transition planning services during this admission, please contact Case Management. [phone]. [employer] transport will be needed once stable for discharge. HX Depression Bipolar disorder DM SIGNATURE: Cary Pino RN PATIENT NAME: Ghislaine Givens DATE: March 02, 2023 TIME: 8:46 AM CONTACT #: [phone] History of Present illness Narrative* Dewayne Doran MD - 03/01/2023 10:40 AM EDT NAME: Ghislaine Givens AGE: [age] year old Referred by: Pilar Magdaleno [address] [address] Referred for: an opinion regarding nausea and vomitting GENERAL ROS: Colon polyps: No Colon cancer: No Other cancer: No Radiation / Chemotherapy: No Crohn's disease / Ulcerative colitis: No High cholesterol or triglycerides: No Ulcers: patient is unsure Gallstones: No Hepatitis / jaundice: No Heart Disease: No Lung Disease: No Liver problems:No Thyroid disease: No Kidney stones: No Pancreatitis: No Diabetes: Yes Arthritis: No Rheumatic fever:No Gastrointestinal bleeding: No Depression or other mental illness:Yes Other personal illness:No FAMILY HISTORY: Liver problems: No Colitis: No Colon cancer:No Other cancers: Yes, lung PAST SURGICAL HISTORY Procedure Laterality Date AMPUTATION TOE,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 GI SPECIFIC ROS: Difficulty swallowing / foods sticking in throat:No Heartburn:Yes Hoarseness: No Chronic cough: No Regurgitation: No Chest pain: {yes Filling up quickly at meals: patient unable to eat Loss of appetite:Yes Nausea: Yes Vomiting: Yes Abdominal pain:Yes Recent change in bowel movements: No Bloody or black, bowel movements: No Constipation: Yes Diarrhea: {No Loss of control of bowel movements: No Night sweats, fever, chills: No Thought or memory problems: Yes Fluid in abdomen (ascites):No Prominent leg swelling:No Vomiting blood: Yes Recent change in weight: Yes CURRENT MEDICATIONS: Current Outpatient Medications Medication Sig metFORMIN (GLUCOPHAGE) 500 mg tablet One pill by mouth daily w/ breakfast X 1 week; then increase to twice daily w/ meals. albuterol HFA (PROAIR HFA) 90 mcg/actuation inhaler Inhale 2 Puffs as instructed every 4 hours as needed. insulin glargine 100 unit/mL (3 mL) Inject 10 Units subcutaneously twice daily. pantoprazole DR (PROTONIX) 40 mg tablet Take 1 tablet by mouth twice daily before meals (0600/1600). bacitracin 500 unit/gram ointment Apply to affected area twice daily. traZODone HCl (DESYREL) 300 mg tablet Take 300 mg by mouth daily at bedtime. No current facility-administered medications for this visit. ALLERGIES: Patient has no known allergies. PERSONAL HABITS: Tobacco: No patient quit Alcohol: No Coffee: No The above documentation completed by Brissa Acosta LPN I agree with the Chief Complaint, ROS, and Past Histories independently gathered by the clinical system support developer and the remaining scribed note accurately describes my personal service to the patient. Dewayne Doran MD ------ PRESENTING COMPLAINT & HISTORY: Patient presents with: New Patient: Nausea and vomiting History: Patient presents to office with acute nausea vomiting abdominal pain rated least 8/10. When I walked into the exam room she was having an episode of emesis. In view of the fact that she appeared to be in acute distress to be took her to the emergency room for further evaluation. PHYSICAL EXAMINATION: General Appearance: Cooperative, in acute distress, alert. Eyes: Conjunctivas/corneas clear. Extremities: Normal, with no deformities or edema. Joints: No deformity. Good range of motion. IMPRESSION: History of nausea vomiting with acute symptoms of nausea and vomiting and abdominal pain PLAN: Patient referred to ER for further evaluation STAFF PHYSICIAN Dewayne Doran MD documented in this encounterChildren[facility] History of Present illness Narrative* Pilar Magdaleno APRN.[facility] - 02/23/2023 10:11 AM EDT Chief Complaint Patient presents with: [facility] F/U [facility] Ghislaine Givens is a 33 year old female who presents here today for Above Complaints.. Patient presents for ER follow up. Patient has been seen multiple times in multiple ER's for abdominal pain and vomiting. Patient underwent EGD and was shown to have ulcers and started on pantoprazole. Patient reports she continues to have abdominal pain and vomiting and can not keep medications down. Reports zofran, phenergan, and reglan are not effective. Patient is requesting pain medication as that is the only thing that helps. Past medical history, appointments, medications, allergies reviewed. 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 albuterol HFA (PROAIR HFA) 90 mcg/actuation inhaler Inhale 2 Puffs as instructed every 4 hours as needed. insulin glargine 100 unit/mL (3 mL) Inject 10 Units subcutaneously twice daily. pantoprazole DR (PROTONIX) 40 mg tablet Take 1 tablet by mouth twice daily before meals (0600/1600). bacitracin 500 unit/gram ointment Apply to affected area twice daily. traZODone HCl (DESYREL) 300 mg tablet Take 300 mg by mouth daily at bedtime. No current facility-administered medications on file prior to visit. Social History Social History Tobacco Use Smoking status: Every Day Packs/day: 1.50 Years: 3.00 Additional pack years: 0.00 Total pack years: 4.50 Types: Cigarettes Smokeless tobacco: Never Substance Use Topics Alcohol use: Not Currently Comment: rare Drug use: Not Currently Types: Marijuana Comment: Last 2 months ago Review of Symptoms REVIEW OF SYSTEMS SEE HPI EXAM: BP 118/74 Pulse 88 Temp 36.2 C (97.1 F) Resp 16 Wt 91.2 kg (201 lb) LMP 05/18/2021 BMI 32.44 kg/m General Appearance: Patient crying and doubled over. Abdomen: Positive findings: tenderness moderate generalized Health Maintenance List HEPATITIS B(1 of 3 - 3-dose series) Never done HEPATITIS C SCREENING Never done HIV SCREENING Never done DTAP,TDAP,TD(1 - Tdap) Never done PNEUMOCOCCAL(2 - PCV) due on 03/06/2014 DILATED RETINAL EXAM due on 03/31/2014 URINE ALBUMIN:CREATININE RATIO due on 04/12/2014 LDL CHOLESTEROL due on 06/07/2014 PAP TESTING due on 05/03/2018 DIABETIC FOOT EXAM due on 03/10/2020 ANNUAL PCP TEAM CHRONIC DISEASE VISIT due on 03/10/2020 COVID-19 VACCINE(2 - Moderna series) due on 08/25/2021 HPV TESTING Never done DEPRESSION ASSESSMENT Never done INFLUENZA(1) due on 03/12/2023 HBA1C due on 05/21/2023 HPV VACCINE Aged Out ASSESSMENT/PLAN: 1. Chronic nausea - ICD9: 787.02, ICD10: R11.0 (primary diagnosis) - CONSULT TO GASTROENTEROLOGY 2. Chronic abdominal pain - ICD9: 789.00, 338.29, ICD10: R10.9, G89.29 - Referral to Gastroenterology - CONSULT TO PAIN MGT Pilar Magdaleno APRN.AVIONIC TECHNICIAN documented in this encounterChildren'S [facility]08-08-2023 Note. MICRO - Microbiology PROCEDURE: Blood Culture (bacterial) [*1] SOURCE: Blood BODY SITE: COLLECTED DATE/TIME: 02/11/2023 03:43 EDT RECEIVED DATE/TIME: 02/11/2023 14:35 EDT START DATE/TIME: 02/11/2023 14:35 EDT FREE TEXT SOURCE: FINAL REPORTS Final Report [] Verified Date/Time/Personnel: 02/16/2023 14:59 EDT Blood Culture: No Growth at 5 days. PRELIMINARY REPORTS Preliminary Report [] Verified Date/Time/Personnel: 02/11/2023 15:59 EDT Culture has been received in lab and is no growth to date. Routine cultures are held for 5 days. Performing Locations *1: This test was performed at: [facility], [address] [place] [address], [id number] , [facility] hospital ([place])02-16-2023 Note. MICRO - Microbiology PROCEDURE: Blood Culture (bacterial) [*1] SOURCE: Blood BODY SITE: COLLECTED DATE/TIME: 02/11/2023 03:43 EDT RECEIVED DATE/TIME: 02/11/2023 14:35 EDT START DATE/TIME: 02/11/2023 14:35 EDT FREE TEXT SOURCE: FINAL REPORTS Final Report [] Verified Date/Time/Personnel: 02/16/2023 14:59 EDT Blood Culture: No Growth at 5 days. PRELIMINARY REPORTS Preliminary Report [] Verified Date/Time/Personnel: 02/11/2023 15:59 EDT Culture has been received in lab and is no growth to date. Routine cultures are held for 5 days. Performing Locations *1: This test was performed at: [facility], [address] [place] [address], [id number] , [facility] hospital ([place])02-11-2023 Hospital Discharge instructions Patient Education 02/11/2023 17:15:56 Cannabinoid Hyperemesis Syndrome Cannabinoid Hyperemesis Syndrome Cannabinoid hyperemesis syndrome (CHS) is a condition that causes repeated nausea, vomiting, and abdominal pain after long-term (chronic) use of marijuana (cannabis). People with CHS typically use marijuana 3 5 times a day for many years before they have symptoms, although it is possible to developCHS with as little as 1 use per day. Symptoms of CHS may be mild at first but can get worse and more frequent. In some cases, CHS may cause vomiting many times a day, which can lead to weight loss and dehydration. CHS may go away and come back many times (recur). People may not have symptoms or may otherwise be healthy in between CHS attacks. What are the causes? The exact cause of this condition is not known. Long-term use of marijuana may over-stimulate certain proteins in the brain that react with chemicals in marijuana (cannabinoid receptors). This over-stimulation may cause CHS. What are the signs or symptoms? Symptoms of this condition are often mild during the first few attacks, but they can get worse overtime. Symptoms may include: Frequent nausea, especially early in the morning. Vomiting. Abdominal pain. Taking several hot showers throughout the day can also be a sign of this condition. People with CHSmay do this because it relieves symptoms. How is this diagnosed? This condition may be diagnosed based on: Your symptoms and medical history, including any drug use. A physical exam. You may have tests done to rule out other problems. These tests may include: Blood tests. Urine tests. Imaging tests, such as an X-ray or CT scan. How is this treated? Treatment for this condition involves stopping marijuana use. Your health care provider may recommend: A drug rehabilitation program, if you have trouble stopping marijuana use. Medicines for nausea. Hot showers to help relieve symptoms. Certain creams that contain a substance called capsaicin may improve symptoms when applied to the abdomen. Ask your health care provider before starting any medicines or other treatments. Severe nausea and vomiting may require you to stay at the hospital. You may need IV fluids to prevent or treat dehydration. You may also need certain medicines that must be given at the hospital. Follow these instructions at home: During an attack Stay in bed and rest in a dark, quiet room. Take anti-nausea medicine as told by your health care provider. Try taking hot showers to relieve your symptoms. After an attack Drink small amounts of clear fluids slowly. Gradually add more. Once you are able to eat without vomiting, eat soft foods in small amounts every 3 4 hours. General instructions Do not use any products that contain marijuana.If you need help quitting, ask your health care provider for resources and treatment options. Drink enough fluid to keep your urine pale yellow. Avoid drinking fluids that have a lot of sugar or caffeine, such as coffee and soda. Take and apply iiev-rkc-ahcjajr and prescription medicines only as told by your health care provider. Ask your health care provider before starting any new medicines or treatments. Keep all follow-up visits as told by your health care provider. This is important. Contact a health care provider if: Your symptoms get worse. You cannot drink fluids without vomiting. You have pain and trouble swallowing after an attack. Get help right away if: You cannot stop vomiting. You have blood in your vomit or your vomit looks like coffee grounds. You have severe abdominal pain. You have stools that are bloody or black, or stools that look like tar. You have symptoms of dehydration, such as: ?Sunken eyes. ?Inability to make tears. ?Cracked lips. ?Dry mouth. ?Decreased urine production. ?Weakness. ?Sleepiness. ?Fainting. Summary Cannabinoid hyperemesis syndrome (CHS) is a condition that causes repeated nausea, vomiting, and abdominal pain after long-term use of marijuana. People with CHS typically use marijuana 3 5 times a day for many years before they have symptoms, although it is possible to develop CHS with as little as 1 use per day. Treatment for this condition involves stopping marijuana use. Hot showers and capsaicin creams may also help relieve symptoms. Ask your health care provider before starting any medicines or other treatments. Your health care provider may prescribe medicines to help with nausea. Get help right away if you have signs of dehydration, such as dry mouth, decreased urine production, or weakness. This information is not intended to replace advice given to you by your health care provider. Make sure you discuss any questions you have with your health care provider. Document Released: 10/06/2017 Document Revised: 11/04/2018 Document Reviewed: 10/06/2017 [employer] Patient Education 2020 [employer]. 02/11/2023 17:15:45 Nausea, Adult, Bkvl-rp-Lnbg Nausea, Adult Nausea is feeling sick to your stomach or feeling that you are about to throw up (vomit). Feeling sick to your stomach is usually not serious, but it may be an early sign of a more serious medical problem. As you feel sicker to your stomach, you may throw up. If you throw up, or if you are not able to drink enough fluids, there is a risk that you may lose too much water in your body (get dehydrated). If you lose too much water in your body, you may: Feel tired. Feel thirsty. Have a dry mouth. Have cracked lips. Go pee (urinate) less often. Older adults and people who have other diseases or a weak body defense system (immune system) have a higher risk of losing too much water in the body. The main goals of treating this condition are: To relieve your nausea. To ensure your nausea occurs less often. To prevent throwing up and losing too much fluid. Follow these instructions at home: Watch your symptoms for any changes. Tell your doctor about them. Follow these instructions as toldby your doctor. Eating and drinking Take an ORS (oral rehydration solution). This is a drink that is sold at pharmacies and stores. Drink clear fluids in small amounts as you are able. These include: ?Water. ?Ice chips. ?Fruit juice that has water added (diluted fruit juice). ?Low-calorie sports drinks. Eat bland, wnug-el-oewuec foods in small amounts as you are able, such as: ?Bananas. ?Applesauce. ?Rice. ?Low-fat (lean) meats. ?[place]. ?Crackers. Avoid drinking fluids that have a lot of sugar or caffeine in them. This includes energy drinks, sports drinks, and soda. Avoid alcohol. Avoid spicy or fatty foods. General instructions Take rbpw-qmr-dentxig and prescription medicines only as told by your doctor. Rest at home while you get better. Drink enough fluid to keep your pee (urine) pale yellow. Take slow and deep breaths when you feel sick to your stomach. Avoid food or things that have strong smells. Wash your hands often with soap and water. If you cannot use soap and water, use hand film crew member. Make sure that all people in your home wash their hands well and often. Keep all follow-up visits as told by your doctor. This is important. Contact a doctor if: You feel sicker to your stomach. You feel sick to your stomach for more than 2 days. You throw up. You are not able to drink fluids without throwing up. You have new symptoms. You have a fever. You have a headache. You have muscle cramps. You have a rash. You have pain while peeing. You feel light-headed or dizzy. Get help right away if: You have pain in your chest, neck, arm, or jaw. You feel very weak or you pass out (faint). You have throw up that is bright red or looks like coffee grounds. You have bloody or black poop (stools) or poop that looks like tar. You have a very bad headache, a stiff neck, or both. You have very bad pain, cramping, or bloating in your belly (abdomen). You have trouble breathing or you are breathing very quickly. Your heart is beating very quickly. Your skin feels cold and clammy. You feel confused. You have signs of losing too much water in your body, such as: ?Dark pee, very little pee, or no pee. ?Cracked lips. ?Dry mouth. ?Sunken eyes. ?Sleepiness. ?Weakness. These symptoms may be an emergency. Do not wait to see if the symptoms will go away. Get medical help right away. Call your local emergency services (911 in the [place] Do not drive yourself to the hospital. Summary Nausea is feeling sick to your stomach or feeling that you are about to throw up (vomit). If you throw up, or if you are not able to drink enough fluids, there is a risk that you may lose too much water in your body (get dehydrated). Eat and drink what your doctor tells you. Take hart-hre-gmqbnws and prescription medicines only as told by your doctor. Contact a doctor right away if your symptoms get worse or you have new symptoms. Keep all follow-up visits as told by your doctor. This is important. This information is not intended to replace advice given to you by your health care provider. Make sure you discuss any questions you have with your health care provider. Document Released: 06/16/2012 Document Revised: 12/06/2018 Document Reviewed: 12/06/2018 [employer] Patient Education 2020 [employer]. Follow Up Care 02/10/2023 23:24:03 With:AMY SOLORZANO APRN-AVIONIC TECHNICIAN Address: [address] [place] [address] [phone] When:3-5 days Comments:Please call to schedule your post-hospital follow-up appointment. [facility] 08-03-2023 Note Date of Service 02/11/2023 Chief Complaint C/o generalized ABD pain, N/V, multiple recent falls. States she has not been checking her blood sugar either. States she is supposed to be using insulin for DM. History of Present Illness 33-year-old female with past medical history significant for HTN, type 2 diabetes mellitus, neuropathy, depression/anxiety, asthma, cannabis use. Patient presented to [facility] emergency department on 02/10/2023 with a 1 month history of diffuse abdominal pain and vomiting. In the emergency department she was afebrile and hemodynamically stable with adequate oxygen saturations on room air. White blood cell count 15,000. Trace leukocyte e sterase. Glucose elevated to 307. Sodium level 127. Creatinine 1.45 with a GFR of 42. No imaging was done due to recent imaging that has all been essentially the same over the past month. She was treated with IV fluids and antiemetics and subsequently admitted for observation. Patient has had eleven emergency department visits over the past month for THC induced nausea and vomiting. She has had 4 CT's of abdomen and pelvis with contrast. 01/07/2023 and 01/09/2023 [facility] ED visit 01/10/[address] [facility] [address] CT abdomen and pelvis with contrast that showed left hydrosalpinx, mildly dilated CBD with adjacent more than expected khurram hepatis adenopathy which may be reactive. She was treated with IV fluids and antiemetics and discharged. 01/12/2023 and 01/13/2023 [facility] ED visit treated with IV fluids and antiemetics, haldol and discharged. 01/14/2023 [facility] emergency department visit. IV fluids and antiemetics given. Admitted for hypokalemia. CT abdomen and pelvis with bilateral small ovarian cysts. 01/17/2023 [facility] ED visit. CT abdomen and pelvis with contrast showed underfilling versus mucosal thickening at rectosigmoid colon. Otherwise unremarkable. 01/24 [facility] emergency department visit. Discharged with a prescription for Keflex and Reglan. No imaging done. 01/25 [facility] emergency department treated with IV fluids and antiemetics. 727: She was seen in urgent care and advised to go to the emergency department. [facility] ED visit treated with IV fluids and antiemetics and discharged. She was seen at [facility] on 02/08. She had CT of abdomen and pelvis with contrast that showed small left ovarian cyst and sigmoid diverticulosis. Otherwise, nothing acute. She was discharged with lansoprazole, Zofran, dicyclomine. Overnight patient has remained afebrile and hemodynamically stable with adequate oxygen saturationson room air. She is having abdominal pain still. White blood cell count this morning is 12,000. Urinalysis was negative. Urine tox screen positive for cannabis. Pt adamantly refuses cannabis use. States she lives with her boyfriend. She states they smoke alot but I haven't smoked since I first gotsick and it was only 2 hits. Review of Systems See HPI for specific ROS. All other systems reviewed and negative. Physical Exam Vitals and Measurements T: 36.6 C (Oral) TMIN: 36.5 C (Oral) TMAX: 36.8 C (Temporal Artery) HR: 67(Monitored) RR: 18 BP: 137/86 SpO2: 96% HT: 169.9 cm WT: 94.4 kg BMI: 32.7 Weight Dosing Weight: 94.4 kg (02/11/23) Dosing Weight: 97.7 kg (02/10/23) GEN: Appears chronically ill EYES: No conjunctival erythema, drainage. EOMI EARS: Hearing grossly intact. NOSE: No nasal discharge. THROAT: Oral cavity and pharynx pink and moist. CHEST: Normal S1 and S2. Rhythm is regular. Clear to auscultation, without rales, rhonchi, wheezing. ABD: Positive bowel sounds x 4 quads. Soft, nondistended, nontender. EXT: No significant deformity or joint abnormality. No edema. Peripheral pulses intact. NEURO: Sensation grossly intact SKIN: PSYCH: The mental examination revealed the patient was alert and oriented x 4 Lab Results 02/11 03:43 WBC: 12.7 H Hgb: 11.5 L Hct: 34.6 L Platelet: 332 Neutrophil %: 59.6 Glucose Level: 246 H Sodium Level: 136 Potassium Level: 3.5 BUN: 7 Creatinine Lvl (s): 1.21 H 02/10 23:45 WBC: 15.8 H Hgb: 12.7 Hct: 38.8 Platelet: 385 Neutrophil %: 66.7 Glucose Level: 307 H Sodium Level: 127 L Potassium Level: 3.5 BUN: 8 Creatinine Lvl (s): 1.45 H Imaging Results and Diagnostics US Pelvis Non-OB W/Transvaginal Result Date: February 11, 2023 Verified By: KERMIT MORRIS MD CLINICAL STATEMENT: IMPRESSION: Normal uterus and ovaries. There is again demonstration of a left- sidedhydrosalpinx although this was better seen on CT due to bowel gas artifactson the ultrasound. NM Gastric Emptying Study Result Date: February 11, 2023 Verified By: ROSE MARY PRECIADO DO CLINICAL STATEMENT: IMPRESSION: Initially rapid gastric emptying, but remainder of the examination is normalwithout evidence of gastroparesis. I have personally reviewed the images of this examination and agree with theresident's findings and interpretation. XR Abdomen AP Result Date: February 11, 2023 Verified By: KERMIT MORRIS MD CLINICAL STATEMENT: IMPRESSION: Negative abdominal radiograph. US Abdomen Complete Result Date: February 11, 2023 Verified By: KERMIT MORRIS MD CLINICAL STATEMENT: IMPRESSION: Fatty liver or other diffuse hepatocellular disease. No acute findings. I have personally reviewed the images of this examination and agree with theresident's findings and interpretation. Assessment/Plan 1. Abdominal pain 2. Hyponatremia 3. Vomiting 4. Cellulitis 5. Constipation Abdominal pain with vomiting patient has had 12 emergency department visits in the past month with diagnosis of cannabis hyperemesis syndrome. Her urine was positive for cannabis. She adamantly denies smoking since the end of December. States she is surrounded by people who smoke constantly. Abdominal ultrasound was ordered and unremarkable. Transvaginal ultrasound was done and showed similar findings from CT. Gastric emptying study done due to poorly controlled diabetes. This was also negative. Hyponatremia resolved from admission Cellulitis patient was initiated on Unasyn for cellulitis to right foot. Constipation magnesium citrate 1 bottle. DVT prophylaxis: Heparin Labs, diagnostics, and progress notes reviewed as noted in HPI Code Status: Full code Plan of care discussed with patient. All questions answered. Patient verbalizes understanding is agreeable to plan of care. This dictation was performed using voice recognition software and may include grammatical and/or spelling errors. Problem List/Past Medical History Ongoing No qualifying data Historical No qualifying data Procedure/Surgical History No qualifying data available. Medications Home Medications (2) Active cephalexin 500 mg oral capsule 500 mg = 1 cap(s), Oral, QID promethazine 25 mg rectal suppository 25 mg = 1 supp, PRN, Rectal, q6h Allergies NKA Social History Tobacco Nicotine Use: Smoker, current status unknown. Type: Cigarettes., 01/10/2023 Family History Unknown Immunizations No qualifying data available. Code Status Full code Digitally Signed by MARTI WEBB on 02/11/2023 07:14 PM [facility]08-03-2023 Note Discharge Instructions Thank you for allowing [facility] to assist you with your healthcare needs. The following is importantdischarge information regarding your hospital visit. Your Care Team [facility] Your Diagnosis Abdominal pain Hyponatremia Vomiting Weakness What to do next Instructions From Your Doctor You are admitted for electrolyte disturbance. Your electrolytes were corrected. You have had 12 emergency department visits and 2 hospitalizations. You have had 4 CT scans that have been mostly unremarkable with the exception of ovarian cysts that are small. You had a gastric emptying study that was normal. You had an abdominal ultrasound and a vaginal ultrasound that were also unremarkable. You state that your symptoms are improved with a hot shower. This is most consistent with cannabis hyperemesis syndrome. I would recommend changing her living situations. Your urine did test positive for cannabis. You are being discharged with a prescription for cephalexin to be taken 4 times daily for cellulitis of your foot. Please take the complete course of medication. Follow Up Appointments Follow Up with AMY SOLORZANO When Within 3-5 days Why: Please call to schedule your post-hospital follow-up appointment. Where: [address] [place] [phone] The Following Activity and Diet Have Been Ordered for You Discharge Activity - Ordered -- Resume your pre-hospitalization activity, 02/11/23 17:10:00 EDT Discharge Diet - Ordered -- No changes were made to your diet during your hospital stay. Please resume your pre hospitalization diet on discharge., 02/11/23 17:10:00 EDT Allergies NKA Medications Please ask your primary doctor or pharmacist before taking any other medication not listed, including over the counter drugs, herbal medications, vitamins and or supplements as they may interact withyour home medications. What How Much When Why Instructions Last Dose New cephalexin (cephalexin 500 mg oral capsule) 1 cap by mouth Four (4) times a day Duration: 7 Days Pickup at [email or web address] Unchanged promethazine (promethazine 25 mg rectal suppository) 1 suppository(ies) in the rectum Every 6 hours as needed for for nausea/vomiting Cannabis hyperemesis syndrome co-occurrent and due to cannabis abuse Pharmacy Information [email or web address]: [address] [place] [id number] [phone] What How Much When Why Comments Stop Taking prochlorperazine (Compazine use prochlorperazine ) 10 Milligram by mouth Three (3) times a day Cannabis hyperemesis syndrome co-occurrent and due to cannabis abuse Duration: 3 Days Please take this list to your next doctor s visit. Bring all medications you take, including over the counter medications, herbals and other supplements with you to your doctor s visit. Patients and families are reminded to discard old lists and to update any records with all medication providers or retail pharmacies. Education Materials Cannabinoid Hyperemesis Syndrome Cannabinoid hyperemesis syndrome (CHS) is a condition that causes repeated nausea, vomiting, and abdominal pain after long-term (chronic) use of marijuana (cannabis). People with CHS typically use marijuana 3 5 times a day for many years before they have symptoms, although it is possible to developCHS with as little as 1 use per day. Symptoms of CHS may be mild at first but can get worse and more frequent. In some cases, CHS may cause vomiting many times a day, which can lead to weight loss and dehydration. CHS may go away and come back many times (recur). People may not have symptoms or may otherwise be healthy in between CHS attacks. What are the causes? The exact cause of this condition is not known. Long-term use of marijuana may over-stimulate certain proteins in the brain that react with chemicals in marijuana (cannabinoid receptors). This over-stimulation may cause CHS. What are the signs or symptoms? Symptoms of this condition are often mild during the first few attacks, but they can get worse overtime. Symptoms may include: Frequent nausea, especially early in the morning. Vomiting. Abdominal pain. Taking several hot showers throughout the day can also be a sign of this condition. People with CHSmay do this because it relieves symptoms. How is this diagnosed? This condition may be diagnosed based on: Your symptoms and medical history, including any drug use. A physical exam. You may have tests done to rule out other problems. These tests may include: Blood tests. Urine tests. Imaging tests, such as an X-ray or CT scan. How is this treated? Treatment for this condition involves stopping marijuana use. Your health care provider may recommend: A drug rehabilitation program, if you have trouble stopping marijuana use. Medicines for nausea. Hot showers to help relieve symptoms. Certain creams that contain a substance called capsaicin may improve symptoms when applied to the abdomen. Ask your health care provider before starting any medicines or other treatments. Severe nausea and vomiting may require you to stay at the hospital. You may need IV fluids to prevent or treat dehydration. You may also need certain medicines that must be given at the hospital. Follow these instructions at home: During an attack Stay in bed and rest in a dark, quiet room. Take anti-nausea medicine as told by your health care provider. Try taking hot showers to relieve your symptoms. After an attack Drink small amounts of clear fluids slowly. Gradually add more. Once you are able to eat without vomiting, eat soft foods in small amounts every 3 4 hours. General instructions Do not use any products that contain marijuana.If you need help quitting, ask your health care provider for resources and treatment options. Drink enough fluid to keep your urine pale yellow. Avoid drinking fluids that have a lot of sugar or caffeine, such as coffee and soda. Take and apply htya-nce-igmexva and prescription medicines only as told by your health care provider. Ask your health care provider before starting any new medicines or treatments. Keep all follow-up visits as told by your health care provider. This is important. Contact a health care provider if: Your symptoms get worse. You cannot drink fluids without vomiting. You have pain and trouble swallowing after an attack. Get help right away if: You cannot stop vomiting. You have blood in your vomit or your vomit looks like coffee grounds. You have severe abdominal pain. You have stools that are bloody or black, or stools that look like tar. You have symptoms of dehydration, such as: ? Sunken eyes. ? Inability to make tears. ? Cracked lips. ? Dry mouth. ? Decreased urine production. ? Weakness. ? Sleepiness. ? Fainting. Summary Cannabinoid hyperemesis syndrome (CHS) is a condition that causes repeated nausea, vomiting, and abdominal pain after long-term use of marijuana. People with CHS typically use marijuana 3 5 times a day for many years before they have symptoms, although it is possible to develop CHS with as little as 1 use per day. Treatment for this condition involves stopping marijuana use. Hot showers and capsaicin creams may also help relieve symptoms. Ask your health care provider before starting any medicines or other treatments. Your health care provider may prescribe medicines to help with nausea. Get help right away if you have signs of dehydration, such as dry mouth, decreased urine production, or weakness. This information is not intended to replace advice given to you by your health care provider. Make sure you discuss any questions you have with your health care provider. Document Released: 10/06/2017 Document Revised: 11/04/2018 Document Reviewed: 10/06/2017 [employer] Patient Education 2020 [employer] Nausea, Adult Nausea is feeling sick to your stomach or feeling that you are about to throw up (vomit). Feeling sick to your stomach is usually not serious, but it may be an early sign of a more serious medical problem. As you feel sicker to your stomach, you may throw up. If you throw up, or if you are not able to drink enough fluids, there is a risk that you may lose too much water in your body (get dehydrated). If you lose too much water in your body, you may: Feel tired. Feel thirsty. Have a dry mouth. Have cracked lips. Go pee (urinate) less often. Older adults and people who have other diseases or a weak body defense system (immune system) have a higher risk of losing too much water in the body. The main goals of treating this condition are: To relieve your nausea. To ensure your nausea occurs less often. To prevent throwing up and losing too much fluid. Follow these instructions at home: Watch your symptoms for any changes. Tell your doctor about them. Follow these instructions as toldby your doctor. Eating and drinking Take an ORS (oral rehydration solution). This is a drink that is sold at pharmacies and stores. Drink clear fluids in small amounts as you are able. These include: ? Water. ? Ice chips. ? Fruit juice that has water added (diluted fruit juice). ? Low-calorie sports drinks. Eat bland, bipg-dt-rxncdq foods in small amounts as you are able, such as: ? Bananas. ? Applesauce. ? Rice. ? Low-fat (lean) meats. ? [place]. ? Crackers. Avoid drinking fluids that have a lot of sugar or caffeine in them. This includes energy drinks, sports drinks, and soda. Avoid alcohol. Avoid spicy or fatty foods. General instructions Take xhyd-ejj-iwkbftv and prescription medicines only as told by your doctor. Rest at home while you get better. Drink enough fluid to keep your pee (urine) pale yellow. Take slow and deep breaths when you feel sick to your stomach. Avoid food or things that have strong smells. Wash your hands often with soap and water. If you cannot use soap and water, use hand film crew member. Make sure that all people in your home wash their hands well and often. Keep all follow-up visits as told by your doctor. This is important. Contact a doctor if: You feel sicker to your stomach. You feel sick to your stomach for more than 2 days. You throw up. You are not able to drink fluids without throwing up. You have new symptoms. You have a fever. You have a headache. You have muscle cramps. You have a rash. You have pain while peeing. You feel light-headed or dizzy. Get help right away if: You have pain in your chest, neck, arm, or jaw. You feel very weak or you pass out (faint). You have throw up that is bright red or looks like coffee grounds. You have bloody or black poop (stools) or poop that looks like tar. You have a very bad headache, a stiff neck, or both. You have very bad pain, cramping, or bloating in your belly (abdomen). You have trouble breathing or you are breathing very quickly. Your heart is beating very quickly. Your skin feels cold and clammy. You feel confused. You have signs of losing too much water in your body, such as: ? Dark pee, very little pee, or no pee. ? Cracked lips. ? Dry mouth. ? Sunken eyes. ? Sleepiness. ? Weakness. These symptoms may be an emergency. Do not wait to see if the symptoms will go away. Get medical help right away. Call your local emergency services (911 in the [place] Do not drive yourself to the hospital. Summary Nausea is feeling sick to your stomach or feeling that you are about to throw up (vomit). If you throw up, or if you are not able to drink enough fluids, there is a risk that you may lose too much water in your body (get dehydrated). Eat and drink what your doctor tells you. Take uyaw-oux-zpistsg and prescription medicines only as told by your doctor. Contact a doctor right away if your symptoms get worse or you have new symptoms. Keep all follow-up visits as told by your doctor. This is important. This information is not intended to replace advice given to you by your health care provider. Make sure you discuss any questions you have with your health care provider. Document Released: 06/16/2012 Document Revised: 12/06/2018 Document Reviewed: 12/06/2018 [employer] Patient Education 2020 [employer] Additional Information VACCINATE! IT SAVES LIVES! Members of the community who have not yet received the COVID-19 vaccine and would like to receive it can visit one of [facility] vaccine clinics. There are many vaccine clinic locations within the [facility]. For locations and available times, please visit https://[email or web address].[place].gov/. It is important to note that some COVID mobile vaccine clinics are held outdoors and may be canceled in rainy or stormy conditions. To learn more about pediatric vaccinations (ages 5-11), we invite you to visit the [facility] webpage. [email or web address] learn more about the COVID-19 vaccine, we invite you to visit the CDC website for a list of frequently asked questions.https://www.cdc.gov/coronavirus/2019-ncov/vaccines/faq.html [employer] Patient Portal Access Instructions: Stay connected with your healthcare team and access your personal medical information anytime with the [employer] Patient Portal. Please follow the directions below to create your [employer] account: 1.Access the email account you provided upon registration to the hospital/physician office.2.Look for an invitation email from [facility].3.Open the email and access the invitation link: AcceptInvitation to [employer].4.Fill in the required joy to create your account. To access your account, visit [facility]. Click the blue button labeled Access Patient Portal and then log in with the username and password that you created in the steps above. You will be able to view your test results, lab results, a summary of your visits, upcoming appointments and more. There is also a convenient messaging option where you can send secure messages to your p rovider. In addition, you will have the ability to download any documents or summaries to your computer and/or send the information securely to a physician. Remember that your healthcare information is confidential, so carefully consider who you will allowto register on the [employer] Patient Portal for access to your information. You can also access the [facility] Patient Portal on the [employer]. Simply click on Patient Portal and then log into your account. If you would like to receive a full copy of your medical records, please contact the [facility] Medical Records Department by calling [phone], Wednesday through Wednesday between 8 a.m. and 4:30 p.m. HOW TO SAFELY DISPOSE OF PRESCRIPTION MEDICATIONS Please use one of the following methods to safely dispose of your unused medications. 1.Use a drug disposal kit: the drug disposal pouch allows you to safely discard your old and unuseddrugs. Ask your nurse to give you one when you are discharged.2.Visit a local take-back location: Many local pharmacies and police departments have programs that collect old and unwanted prescriptiondrugs. Call your local pharmacy or go to http://GuidePal.[facility]/0Z0Fu6j to find one close to you.3.Make use of household items: Use cat litter or old coffee grounds to dispose medications if other options arenot available. Mix your drugs with these household products, seal them in an airtight container andthrow it into the garbage. Call [facility]: [phone] to be sure your drugs can be disposed of in this way. Some medicines may require a different approach.4.Never flush your medications down the toilet. IF YOU HAVE BEEN PRESCRIBED AN OPIOID FOR PAIN If you have been prescribed an opioid (such as hydrocodone, oxycodone or morphine), it is critical to understand the possible side effects and risks of opioid pain medications. Even when taken as directed, opioids can have several side effects including: Tolerance, meaning you might need to take more of a medication for the same pain relief. Nausea, vomiting and/or constipation. Sleepiness, dizziness, dry mouth, confusion, depression or itching. Physical dependence, meaning you have withdrawal symptoms when a medication is stopped, can develop within a few days. KNOW YOUR RESPONSIBILITIES It is important to know exactly how much and how often to take the opioid pain medications you are prescribed. Never take opioids in higher amounts or more often than prescribed. Do not combine opioids with alcohol or other drugs that cause drowsiness, such as benzodiazepines, also known as benzos, including diazepam and alprazolam, muscle relaxants or sleep aids. Never sell or share prescription opioids. This is illegal. Store opioids in a secure place and out of reach of others (including children, family, friends and visitors). The last page of this document has been signed and retained as a CHART COPY. Signatures Patient Education Materials Cannabinoid Hyperemesis Syndrome Nausea, Adult, [facility] Medication Leaflets My discharge plan and instructions have been reviewed and explained to me and I,GHISLAINE GIVENS understand my current condition and have read and understand these discharge instructions. I have received a written copy of the plan/instructions. If I have questions, I am aware that I should contact my doctor. Patient/Jelly Maker Signature: Date/Time: Relationship to Patient: Witness Name/Signature: Date/Time: [facility]08-03-2023 Note ORIGINAL EXAMINATION: GASTRIC EMPTYING STUDY02/11/2023 2:37 pm TECHNIQUE: The patient received an oral radiolabeled solid-phase meal utilizing 2.0 mCi of Tc-99m sulfur colloid in cooked egg. Sequential anterior and posterior images of the abdomen were then acquired over the next 3 hours. Computer quantification of gastric emptying (using geometric mean activity) was performed. COMPARISON: 02/11/2023. 01/10/2023. HISTORY: ORDERING SYSTEM PROVIDED HISTORY: Reason for Exam: persistant N/V, DM FINDINGS: Sequential static images demonstrates radiotracer within the gastric lumen, progressively emptying into small bowel. Computer quantification demonstrates gastric retention as follows: 57 % at 0.5 hr (normal min 70%) 49 % at 1 hr (normal 30%-90%) 11 % at 2 hr (normal max 60%) 2 % at 3 hr (normal max 30%) IMPRESSION: Initially rapid gastric emptying, but remainder of the examination is normal without evidence of gastroparesis. I have personally reviewed the images of this examination and agree with the resident's findings and interpretation. Interpreted by: Rose Mary Preciado Preliminary Report By: Say Zelaya Electronically signed By Rose Mary Preciado Dictated Date: 02/11/2023 2:45:02 PM Prelim Date: 02/11/2023 3:41:00 PM Sign Date: 02/11/2023 3:41:00 PM [facility] Evaluation + Plan noteExtracted from: Title:History and Physical Author:MARTI WEBB DIAMOND SORTER-AVIONIC TECHNICIAN Date:02/11/23 1. Abdominal pain 2. Hyponatremia 3. Vomiting 4. Cellulitis 5. Constipation Abdominal pain with vomiting patient has had 12 emergency department visits in the past month with diagnosis of cannabis hyperemesis syndrome. Her urine was positive for cannabis. She adamantly denies smoking since the end of December. States she is surrounded by people who smoke constantly. Abdominal ultrasound was ordered and unremarkable. Transvaginal ultrasound was done and showed similar findings from CT. Gastric emptying study done due to poorly controlled diabetes. This was also negative. Hyponatremia resolved from admission Cellulitis patient was initiated on Unasyn for cellulitis to right foot. Constipation magnesium citrate 1 bottle. DVT prophylaxis: Heparin Labs, diagnostics, and progress notes reviewed as noted in HPI Code Status: Full code Plan of care discussed with patient. All questions answered. Patient verbalizes understanding is agreeable to plan of care. This dictation was performed using voice recognition software and may include grammatical and/or spelling errors. [facility] 08-03-2023 Note ORIGINAL EXAMINATION: TRANSVAGINAL PELVIC ULTRASOUND02/11/2023 11:49 am Ultrasound Pelvis: Transabdominal and transvaginal study COMPARISON: CT 01/10/2023 HISTORY: ORDERING SYSTEM PROVIDED HISTORY: Reason for Exam: ABd pain, hydrosalpinx, left lower quadrant pain FINDINGS: The uterus is 6.6 x 3.1 x 3.8 cms. There is mild nonspecific heterogeneity of the myometrium. No myometrial mass lesion is seen. The endometrial double wall thickness is 4.1 mm. Right ovary: Only seen transabdominally 3.3 x 2.1 x 1.9 cm.. Left ovary: Less than optimally visualized due to bowel gas artifacts in the pelvis and adnexa. It is 2.3 x 1.7 x 2.0 cm. No suspicious ovarian lesion is seen.. There is a tubular structure of 5-6 mm diameter in the left adnexal region without blood flow corresponding to the hydrosalpinx seen on CT. This is less than optimally visualized due to bowel gas artifacts, better seen transabdominally.. No concerning ovarian cyst or mass is seen. There is blood flow to both ovaries. No other pelvic or adnexal masses or significant free fluid is seen. IMPRESSION: Normal uterus and ovaries. There is again demonstration of a left-sided hydrosalpinx although this was better seen on CT due to bowel gas artifacts on the ultrasound. Interpreted by: Kermit Morris MD Preliminary Report By: Kermit Morris MD Electronically signed By Kermit Morris MD Dictated Date: 02/11/2023 12:07:34 PM Prelim Date: 02/11/2023 12:11:13 PM Sign Date: 02/11/2023 12:11:13 PM Ordering Provider: [address]03-2023 Note ORIGINAL EXAMINATION: ONE SUPINE XRAY VIEW(S) OF THE ABDOMEN02/11/2023 9:05 am COMPARISON: None HISTORY: ORDERING SYSTEM PROVIDED HISTORY: Reason for Exam: abd pain, constipation FINDINGS: Bowel gas pattern is nonobstructive and unremarkable. No dilated small bowel loops. No significant fecal loading of the colon. No visible calculi. No supine evidence of free air. The included lung bases are clear. No acute skeletal abnormality. IMPRESSION: Negative abdominal radiograph. Interpreted by: Kermit Morris MD Preliminary Report By: Kermit Morris MD Electronically signed By Kermit Morris MD Dictated Date: 02/11/2023 9:28:23 AM Prelim Date: 02/11/2023 9:28:54 AM Sign Date: 02/11/2023 9:28:54 AM Ordering Provider: [place] [id number] Note ORIGINAL EXAMINATION: COMPLETE ABDOMINAL ULTRASOUND 02/11/2023 8:58 am COMPARISON: CT abdomen pelvis dated January 10, 2023. HISTORY: ORDERING SYSTEM PROVIDED HISTORY: Reason for Exam: Abd pain, hydrosalpinx, mild CBD dilation FINDINGS: LIVER: The liver measures 16.4 cm in craniocaudal span, demonstrates diffusely increased hepatic echogenicity but periportal and diaphragmatic echogenicity is still appreciable without evidence of intrahepatic biliary ductal dilatation. No obvious focal lesions seen BILIARY SYSTEM: Gallbladder is unremarkable without evidence of pericholecystic fluid, wall thickening or stones. Negative sonographic Morris's sign. Common bile duct is within normal limits measuring 2.1 mm. KIDNEYS: The kidneys are unremarkable in appearance without evidence of hydronephrosis. PANCREAS: Visualized portions of the pancreas are unremarkable. SPLEEN: The spleen is unremarkable in appearance. Spleen is within normal limits in size. IVC: The visualized IVC is patent. AORTA: Visualized aorta is patent without aneurysm. OTHER: No evidence of ascites. IMPRESSION: Fatty liver or other diffuse hepatocellular disease. No acute findings. I have personally reviewed the images of this examination and agree with the resident's findings and interpretation. Interpreted by: Kermit Morris MD Preliminary Report By: Tigre Espinal Electronically signed By Kermit Morris MD Dictated Date: 02/11/2023 9:15:59 AM Prelim Date: 02/11/2023 1:29:01 PM Sign Date: 02/11/2023 1:29:01 PM Ordering Provider: [facility] operated by [facility]07-27-2023 History of Present illness Narrative* Irais Hanna PA - 02/04/2023 2:18 PM EDT 33-year-old female presents for vomiting and abdominal pain. Patient states she has been having vomiting abdominal pain for a month. She has been seen at the ER multiple times. She states that they give her fluids and sent her home. She has had lab work and CT scans. Today patient presents crying due to pain and inability to keep down fluids. Advised patient that due to limited diagnostic capabilities in [facility], I recommend she go back to the ER since she is having pain and unable to keep down fluids. She understands. She does have a PCP, but would like a new one. I had our operations scheduler help with scheduling a PCP appointment for the future, but still advise she go to the ER today. [facility] Discharge instructions* Discharge Instructions* Abdirizak Ramirez MD - 01/24/2023 12:32 PM EDT You were seen in the ED for vomiting. 1. It is important for you to stay hydrated 2. The best thing for them to drink is either a sportsdrink like gatorade or water or juice 3. Please follow the ORT (oral rehydration therapy) instructions you were given by your nurse in the ER- drinking small sips at a time; avoid dairy or large meals until you are feeling better 4. Remember the general idea is lots of small sips spread out over time until you know that you cantolerate larger amounts 5. Return for inability to keep down liquids, urinating less than 2 times in a day, severe pain, blood in vomit or diarrhea, or other concern. 6. Take reglan for nausea or vomiting; Take tylenol or motrin for body aches Please sign up for MyChart and review all results from your visit today. Please follow up with yourprimary care provider with any questions or concerns about your results today. Thank you for choosing [facility] for your care. Sincerely, Abdirizak Ramirez MD documented in this [facility]07-16-2023 Emergency department Note* Abdirizak Ramirez MD - 01/24/2023 10:[address] [facility] ED EMERGENCY DEPARTMENT ENCOUNTER Pt Name: Ghislaine Givens Birthdate 1990 Date of evaluation: 01/24/2023 Provider: Abdirizak Ramirez MD CHIEF COMPLAINT Chief Complaint Patient presents with Vomiting Syncope HISTORY OF PRESENT ILLNESS I wore proper PPE for the entirety of this encounter. Ghislaine Givens is a 32 y.o. female who presents to the emergency department with nausea, vomiting, diffuse abdominal pain and also syncopal episode 3 days ago while in the shower. Patient notes her symptoms have been present for 3 weeks. She has been seen at an outside ER and been prescribed stomach acid medications. She has a history of diabetes on insulin. She denies prior surgical history. Nursing Notes were reviewed. Limitations to history: None Outside historians: Significant other REVIEW OF SYSTEMS (2+ for level 4; 10+ for level 5) Constitutional: as noted in HPI, and negative for fever/chills Eyes: as noted in HPI, and negative for vision changes ENT: as noted in HPI, and negative for cough CV: as noted in HPI, and negative for chest pain, negative for palpitations Resp: as noted in HPI, and negative for shortness of breath GI: as noted in HPI : as noted in HPI, and negative for urinary symptoms MSK: as noted in HPI, and negative for muscle pain Skin: as noted in HPI, and negative for rash Neuro: as noted in HPI, and negative for headaches, negative for acute focal weakness/numbness PAST MEDICAL HISTORY Past Medical History: Diagnosis Date Cannabinoid hyperemesis syndrome Cannabis abuse SURGICAL HISTORY History reviewed. No pertinent surgical history. CURRENT MEDICATIONS Previous Medications BISACODYL (DULCOLAX) 10 MG SUPPOSITORY 10 mg. INSULIN GLARGINE (LANTUS) 100 UNIT/ML PEN Insulin Glargine (Lantus Solostar U- 100 Insulin) 100 unit/mL (3 mL) insulin pen Active 15 UNIT SC TWICE A DAY August 12, 2022 1:00am OMEPRAZOLE (PRILOSEC) [address] CAPSULE Take 40 mg by mouth. TRAZODONE (DESYREL) 300 MG TABLET Take 300 mg by mouth. ALLERGIES Patient has no known allergies. FAMILY HISTORY No family history on file. SOCIAL HISTORY Social History Socioeconomic History Marital status: Tobacco Use Smoking status: Every Day Packs/day: 0.50 Types: Cigarettes Substance and Sexual Activity Alcohol use: Yes Comment: occ. Drug use: Yes Types: Marijuana Comment: +cannabinoid hyperemesis SCREENINGS PHYSICAL EXAM (up to 7 for level 4, 8 or more for level 5) ED Triage Vitals [01/24/23 1028] Temp Heart Rate Resp BP 36.3 C (97.3 F) 87 16 (!) 141/102 SpO2 Temp Source Heart Rate Source Patient Position 96 % Oral Monitor -- BP Location FiO2 (%) -- -- Constitutional: No acute distress HEENT:Head: Atraumatic/normocephalic Eyes: Conjunctivae normal. ENT: Mucous membranes moist. CV: RRR RESP: CTAB, good respiratory effort, no increased wob GI: Abdomen soft, mild diffuse tenderness, non-distended, +BS, no guarding or rebound tenderness MSK: Normal bulk and tone, no gross deformity EXTR: Warm and well perfused, no edema SKIN: No rash/bruising/erythema PSYCH: Appropriate affect, cooperative behavior NEURO: Alert and oriented x 3, face symmetric, no slurred speech DIAGNOSTIC RESULTS Procedures/EKG: EKG was reviewed by myself. Physician EKG interpretation can be found in [facility] RADIOLOGY (Per Emergency Physician): Interpretation per the Radiologist below, if available at the time of this note: No orders to display LABS: Labs Reviewed CBC WITH AUTO DIFFERENTIAL - Abnormal Result Value Auto WBC 7.8 RBC 4.71 Hemoglobin 12.4 Hematocrit 37.2 MCV 79.0 (*) MCH 26.3 MCHC 33.3 RDW 13.9 Platelets 342 MPV 9.1 Neutrophils Relative 59.3 Lymphocytes Relative 33.6 Monocytes Relative 5.9 Eosinophils Relative 0.3 (*) Basophils Relative 0.3 Immature Grans % 0.6 (*) Neutrophils Absolute 4.6 Lymphocytes Absolute 2.6 Monocytes Absolute 0.5 Eosinophils Absolute 0.0 Basophils Absolute 0.0 Immature Grans Absolute 0.1 (*) COMPREHENSIVE METABOLIC PANEL - Abnormal SODIUM 135 POTASSIUM 3.6 CHLORIDE 100 CARBON DIOXIDE 25 ANION GAP 10 UREA NITROGEN 9 CREATININE 0.78 GLUCOSE 220 (*) CALCIUM 9.4 AST (SGOT) 28 ALT 20 ALKALINE PHOSPHATASE 74 ALBUMIN 4.2 BILIRUBIN, TOTAL 0.7 TOTAL PROTEIN 8.1 eGFR >90.0 COMPLETE URINALYSIS - Abnormal Color, Urine Yellow Clarity, Urine Turbid (*) pH, Urine 6.5 Leukocytes, Urine 250 (*) Nitrite, Urine Negative Protein, Urine 20 (*) Glucose, Urine 500 (*) Bilirubin, Urine Negative Ketones, Urine 20 (*) Urobilinogen, Urine Normal Blood, Urine Negative Volume, Urine 12 mL RBC, Urine 0-2 WBC, Urine 6-10 (*) Squamous Epithelial, Urine 11-25 (*) Bacteria, Urine Few (*) Mucus, Urine Few Amorphous Crystals, Urine Few (*) SPECIFIC GRAVITY OF URINE (NUMERIC) 1.016 LIPASE - Normal LIPASE 130 MAGNESIUM - Normal MAGNESIUM 1.8 TROPONIN I - Normal TROPONIN I <0.012 Narrative: Patients with high levels of Biotin oral intake (ie >5 mg/day) may have falsely decreased Troponin levels. COMPLETE URINALYSIS WITH REFLEX TO CULTURE Narrative: The following orders were created for panel order Urinalysis Complete with reflex to Culture. Procedure Abnormality Status --------- ------ Complete Urinalysis[[id number]] Abnormal Final result Please view results for these tests on the individual orders. HCG QUALITATIVE URINE HCG,URINE QUAL Negative Narrative: is the most common reason for HCG in urine, although choriocarcinoma, hydatidiform mole, and certain nontrophoblastic malignancies also result in detectable urinary HCG levels. Sensitivity = 20mIU/mL. EMERGENCY DEPARTMENT COURSE and DIFFERENTIAL DIAGNOSIS/MDM: Vitals: Vitals: 01/24/23 1109 01/24/23 1138 01/24/23 1209 01/24/23 1238 BP: (!) 146/83 (!) 152/91 126/75 129/74 Pulse: 65 71 71 70 Resp: 20 18 15 Temp: TempSrc: SpO2: 100% 95% 97% 98% Weight: Height: Medications sodium chloride 0.9 % bolus 1,000 mL (0 mL IntraVENous Stopped 01/24/23 1140) ondansetron (Zofran) injection 4 mg (4 mg IntraVENous Given 01/24/23 1051) dicyclomine (Bentyl) injection 20 mg (20 mg IntraMUSCular Given 01/24/23 1054) cefTRIAXone (Rocephin) 1,000 mg in sodium chloride 0.9 % 50 mL IVPB Mini-Bag Plus (0 mg IntraVENousStopped 01/24/23 1209) metoclopramide (Reglan) injection 10 mg (10 mg IntraVENous Given 01/24/23 1135) diphenhydrAMINE (BENADryl) injection 25 mg (25 mg IntraVENous Given 01/24/23 1131) I personally saw the patient and performed a substantive portion of the visit including all aspectsof the medical decision making. Patient appears nontoxic however mildly uncomfortable. She is mildly hypertensive and this is likely secondary to discomfort. Other vital signs are normal. She has mild diffuse abdominal tenderness. I ordered Bentyl IM for pain, Zofran IV for nausea, 1 L of IV fluids for dehydration. Abdominal exam without peritoneal signs. No evidence of acute abdomen at this time. Well appearing.Given work up, low suspicion for acute hepatobiliary disease (including acute cholecystitis or cholangitis), acute pancreatitis (neg lipase), PUD (including gastric perforation), acute infectious processes (pneumonia, hepatitis, pyelonephritis), acute appendicitis, vascular catastrophe, bowel obstruction, viscus perforation, ovarian torsion (pain is diffuse and bilateral), or diverticulitis. Presentation not consistent with other acute, emergent causes of abdominal pain at this time. I completed a structured, evidence-based clinical evaluation to screen for cardiac and other potentially dangerous causes of syncope in this patient. The evidence indicates that the patient is very low risk for a cardiac or other dangerous cause of syncope and this is consistent with my clinical intuition. The risk of further workup or hospitalization for cardiac or other dangerous cause is likely higherthan the risk of the patient having a cardiac or other dangerous cause of syncope. It is, therefore, in the patient s best interest not to do additional emergent testing or hospitalize the patient for syncope at this time. Given history, exam and workup, low suspicion for heart failure, ICH (no trauma, headache), seizure(no witnessed seizure like activity, no postictal period, tongue laceration, bladder incontinence),stroke (no focal neuro deficits), HOCM (no murmur, family history of sudden ), ACS (neg troponin, no anginal pain), aortic dissection (no chest pain), malignant arrhythmia on ekg or any family history of sudden , or GI bleed (stable hgb). Low suspicion for PE given normal vital signs, absence of chest pain or dyspnea, no evidence of DVT, no recent surgery/immobilization. Based on azerbaijani syncope rule (see below), patient is low risk and well appearing here, plan to discharge the patient home with PMD follow up. [place] syncope rule: predisposition to vasovagal symptoms/consistent with vasovagal (-1), heart disease history (+1), SBP <90 or >180 on any reading (+2), elevated troponin (+2), abnormal QRSaxis < 30 or >100 degrees (+1), QRS duration > 130 ms (+1), cQT interval >480 ms (+2), ED dx of vasovagal (-2) or cardiac syncope (+2) --> <2 points = low risk of 30 day serious even (<3%), 2-3 points = medium risk (~5-8%), 4 or more points = high risk (12.9%). Details work-up below. Patient felt improved after she was additionally given Reglan and Benadryl IV. Discharged home with Reglan prescription and Keflex prescription for urinary tract infection. ED Course as of 01/24/23 1303 Sun Jan 24, 2023 1103 CBC auto differential(!) Normal [NEVA] 1103 HCG,URINE QUAL: Negative Negative [NEVA] 1103 EKG showed sinus rhythm, rate 69, no ST elevations or depressions on my interpretation. [NEVA] 1111 Comprehensive metabolic panel(!) Mild hyperglycemia with no evidence of DKA [NEVA] 1119 Urinalysis Complete with reflex to Culture(!) Possible UTI. Ceftriaxone ordered. [NEVA] 1121 TROPONIN I: <0.012 Normal [NEVA] 1121 MAGNESIUM: 1.8 Normal [NEVA] 1140 I reassessed the patient about 20 minutes ago. She said that she was still feeling nauseous soI ordered Reglan and Benadryl IV. [NEVA] 1221 About 10 minutes ago, give the patient some ice water as a p.o. challenge because she said sheis starting to feel better. [NEVA] 1300 Patient is tolerating p.o. Will discharge. [NEVA] ED Course User Index [NEVA] Abdirizak Ramirez MD Diagnoses as of 01/24/23 1303 Nausea and vomiting, unspecified vomiting type Syncope and collapse Diagnostic tests considered but not performed: I considered a CT scan of the head however the patient fell from standing and is not on anticoagulation so it is very low risk for cranial fracture or intracranial bleed. Diagnostics interpreted by me: As above Discussions with other clinicians: As above Chronic conditions impacting care: Diabetes CONSULTS: None CRITICAL CARE TIME I personally saw the patient and independently provided 0 minutes of non- concurrent critical care out of the total shared critical care time provided. PROCEDURES: Unless otherwise noted below, none Procedures Patients symptoms are consistent with sepsis, severe sepsis, or septic shock (If yes use .sepsiscoremeasure): no FINAL IMPRESSION 1. Nausea and vomiting, unspecified vomiting type 2. Syncope and collapse DISPOSITION/PLAN Discharge 01/24/2023 01:00:46 PM PATIENT REFERRED TO: Amy Solorzano [address] [place] [id number] Schedule an appointment as soon as possible for a visit DISCHARGE MEDICATIONS: New Prescriptions CEPHALEXIN (KEFLEX) 500 MG CAPSULE Take 1 capsule (500 mg) by mouth 2 times daily for 5 days. METOCLOPRAMIDE (REGLAN) 10 MG TABLET Take 1 tablet (10 mg) by mouth in the morning and 1 tablet (10mg) at noon and 1 tablet (10 mg) in the evening and 1 tablet (10 mg) before bedtime. Do all this for 7 days. (Please note: Portions of this note were completed with a voice recognition program. Efforts were made to edit the dictations but occasionally words and phrases are mis-transcribed.) Abdirizak Ramirez MD [facility] Emergency Medicine Physician [facility] Abdirizak Ramirez MD 01/24/23 1303 * Tamica Penaloza RN - 01/24/2023 10:03 AM EDT Patient to room 15 with c/o vomiting for 3 weeks. Patient reports being at [facility] and being told it was [facility], and there was nothing more they could do for her. Patient reports having Zofran at home that she doesn't take, because it has not relieved her symptoms. V/S obtained, call light within reach. documented in this encounterSMer[facility] [id number] Emergency department Triage note* Tamica Penaloza RN - 01/24/2023 10:03 AM EDT Patient to room 15 with c/o vomiting for 3 weeks. Patient reports being at [facility] and being told it was [facility], and there was nothing more they could do for her. Patient reports having Zofran at home that she doesn't take, because it has not relieved her symptoms. V/S obtained, call light within reach. [id number] Phys[facility] Emergency department Note* Abdirizak Ramirez MD - 01/24/2023 10:[address] [facility] ED EMERGENCY DEPARTMENT ENCOUNTER Pt Name: Ghislaine Givens Birthdate 1990 Date of evaluation: 01/24/2023 Provider: Abdirizak Ramirez MD CHIEF COMPLAINT Chief Complaint Patient presents with Vomiting Syncope HISTORY OF PRESENT ILLNESS I wore proper PPE for the entirety of this encounter. Ghislaine Givens is a 32 y.o. female who presents to the emergency department with nausea, vomiting, diffuse abdominal pain and also syncopal episode 3 days ago while in the shower. Patient notes her symptoms have been present for 3 weeks. She has been seen at an outside ER and been prescribed stomach acid medications. She has a history of diabetes on insulin. She denies prior surgical history. Nursing Notes were reviewed. Limitations to history: None Outside historians: Significant other REVIEW OF SYSTEMS (2+ for level 4; 10+ for level 5) Constitutional: as noted in HPI, and negative for fever/chills Eyes: as noted in HPI, and negative for vision changes ENT: as noted in HPI, and negative for cough CV: as noted in HPI, and negative for chest pain, negative for palpitations Resp: as noted in HPI, and negative for shortness of breath GI: as noted in HPI : as noted in HPI, and negative for urinary symptoms MSK: as noted in HPI, and negative for muscle pain Skin: as noted in HPI, and negative for rash Neuro: as noted in HPI, and negative for headaches, negative for acute focal weakness/numbness PAST MEDICAL HISTORY Past Medical History: Diagnosis Date Cannabinoid hyperemesis syndrome Cannabis abuse SURGICAL HISTORY History reviewed. No pertinent surgical history. CURRENT MEDICATIONS Previous Medications BISACODYL (DULCOLAX) 10 MG SUPPOSITORY 10 mg. INSULIN GLARGINE (LANTUS) 100 UNIT/ML PEN Insulin Glargine (Lantus Solostar U- 100 Insulin) 100 unit/mL (3 mL) insulin pen Active 15 UNIT SC TWICE A DAY August 12, 2022 1:00am OMEPRAZOLE (PRILOSEC) [address] CAPSULE Take 40 mg by mouth. TRAZODONE (DESYREL) 300 MG TABLET Take 300 mg by mouth. ALLERGIES Patient has no known allergies. FAMILY HISTORY No family history on file. SOCIAL HISTORY Social History Socioeconomic History Marital status: Tobacco Use Smoking status: Every Day Packs/day: 0.50 Types: Cigarettes Substance and Sexual Activity Alcohol use: Yes Comment: occ. Drug use: Yes Types: Marijuana Comment: +cannabinoid hyperemesis SCREENINGS PHYSICAL EXAM (up to 7 for level 4, 8 or more for level 5) ED Triage Vitals [01/24/23 1028] Temp Heart Rate Resp BP 36.3 C (97.3 F) 87 16 (!) 141/102 SpO2 Temp Source Heart Rate Source Patient Position 96 % Oral Monitor -- BP Location FiO2 (%) -- -- Constitutional: No acute distress HEENT:Head: Atraumatic/normocephalic Eyes: Conjunctivae normal. ENT: Mucous membranes moist. CV: RRR RESP: CTAB, good respiratory effort, no increased wob GI: Abdomen soft, mild diffuse tenderness, non-distended, +BS, no guarding or rebound tenderness MSK: Normal bulk and tone, no gross deformity EXTR: Warm and well perfused, no edema SKIN: No rash/bruising/erythema PSYCH: Appropriate affect, cooperative behavior NEURO: Alert and oriented x 3, face symmetric, no slurred speech DIAGNOSTIC RESULTS Procedures/EKG: EKG was reviewed by myself. Physician EKG interpretation can be found in [facility] RADIOLOGY (Per Emergency Physician): Interpretation per the Radiologist below, if available at the time of this note: No orders to display LABS: Labs Reviewed CBC WITH AUTO DIFFERENTIAL - Abnormal Result Value Auto WBC 7.8 RBC 4.71 Hemoglobin 12.4 Hematocrit 37.2 MCV 79.0 (*) MCH 26.3 MCHC 33.3 RDW 13.9 Platelets 342 MPV 9.1 Neutrophils Relative 59.3 Lymphocytes Relative 33.6 Monocytes Relative 5.9 Eosinophils Relative 0.3 (*) Basophils Relative 0.3 Immature Grans % 0.6 (*) Neutrophils Absolute 4.6 Lymphocytes Absolute 2.6 Monocytes Absolute 0.5 Eosinophils Absolute 0.0 Basophils Absolute 0.0 Immature Grans Absolute 0.1 (*) COMPREHENSIVE METABOLIC PANEL - Abnormal SODIUM 135 POTASSIUM 3.6 CHLORIDE 100 CARBON DIOXIDE 25 ANION GAP 10 UREA NITROGEN 9 CREATININE 0.78 GLUCOSE 220 (*) CALCIUM 9.4 AST (SGOT) 28 ALT 20 ALKALINE PHOSPHATASE 74 ALBUMIN 4.2 BILIRUBIN, TOTAL 0.7 TOTAL PROTEIN 8.1 eGFR >90.0 COMPLETE URINALYSIS - Abnormal Color, Urine Yellow Clarity, Urine Turbid (*) pH, Urine 6.5 Leukocytes, Urine 250 (*) Nitrite, Urine Negative Protein, Urine 20 (*) Glucose, Urine 500 (*) Bilirubin, Urine Negative Ketones, Urine 20 (*) Urobilinogen, Urine Normal Blood, Urine Negative Volume, Urine 12 mL RBC, Urine 0-2 WBC, Urine 6-10 (*) Squamous Epithelial, Urine 11-25 (*) Bacteria, Urine Few (*) Mucus, Urine Few Amorphous Crystals, Urine Few (*) SPECIFIC GRAVITY OF URINE (NUMERIC) 1.016 LIPASE - Normal LIPASE 130 MAGNESIUM - Normal MAGNESIUM 1.8 TROPONIN I - Normal TROPONIN I <0.012 Narrative: Patients with high levels of Biotin oral intake (ie >5 mg/day) may have falsely decreased Troponin levels. COMPLETE URINALYSIS WITH REFLEX TO CULTURE Narrative: The following orders were created for panel order Urinalysis Complete with reflex to Culture. Procedure Abnormality Status --------- ------ Complete Urinalysis[[id number]] Abnormal Final result Please view results for these tests on the individual orders. HCG QUALITATIVE URINE HCG,URINE QUAL Negative Narrative: is the most common reason for HCG in urine, although choriocarcinoma, hydatidiform mole, and certain nontrophoblastic malignancies also result in detectable urinary HCG levels. Sensitivity = 20mIU/mL. EMERGENCY DEPARTMENT COURSE and DIFFERENTIAL DIAGNOSIS/MDM: Vitals: Vitals: 01/24/23 1109 01/24/23 1138 01/24/23 1209 01/24/23 1238 BP: (!) 146/83 (!) 152/91 126/75 129/74 Pulse: 65 71 71 70 Resp: 20 18 15 Temp: TempSrc: SpO2: 100% 95% 97% 98% Weight: Height: Medications sodium chloride 0.9 % bolus 1,000 mL (0 mL IntraVENous Stopped 01/24/23 1140) ondansetron (Zofran) injection 4 mg (4 mg IntraVENous Given 01/24/23 1051) dicyclomine (Bentyl) injection 20 mg (20 mg IntraMUSCular Given 01/24/23 1054) cefTRIAXone (Rocephin) 1,000 mg in sodium chloride 0.9 % 50 mL IVPB Mini-Bag Plus (0 mg IntraVENousStopped 01/24/23 1209) metoclopramide (Reglan) injection 10 mg (10 mg IntraVENous Given 01/24/23 1135) diphenhydrAMINE (BENADryl) injection 25 mg (25 mg IntraVENous Given 01/24/23 1131) I personally saw the patient and performed a substantive portion of the visit including all aspectsof the medical decision making. Patient appears nontoxic however mildly uncomfortable. She is mildly hypertensive and this is likely secondary to discomfort. Other vital signs are normal. She has mild diffuse abdominal tenderness. I ordered Bentyl IM for pain, Zofran IV for nausea, 1 L of IV fluids for dehydration. Abdominal exam without peritoneal signs. No evidence of acute abdomen at this time. Well appearing.Given work up, low suspicion for acute hepatobiliary disease (including acute cholecystitis or cholangitis), acute pancreatitis (neg lipase), PUD (including gastric perforation), acute infectious processes (pneumonia, hepatitis, pyelonephritis), acute appendicitis, vascular catastrophe, bowel obstruction, viscus perforation, ovarian torsion (pain is diffuse and bilateral), or diverticulitis. Presentation not consistent with other acute, emergent causes of abdominal pain at this time. I completed a structured, evidence-based clinical evaluation to screen for cardiac and other potentially dangerous causes of syncope in this patient. The evidence indicates that the patient is very low risk for a cardiac or other dangerous cause of syncope and this is consistent with my clinical intuition. The risk of further workup or hospitalization for cardiac or other dangerous cause is likely higherthan the risk of the patient having a cardiac or other dangerous cause of syncope. It is, therefore, in the patient s best interest not to do additional emergent testing or hospitalize the patient for syncope at this time. Given history, exam and workup, low suspicion for heart failure, ICH (no trauma, headache), seizure(no witnessed seizure like activity, no postictal period, tongue laceration, bladder incontinence),stroke (no focal neuro deficits), HOCM (no murmur, family history of sudden ), ACS (neg troponin, no anginal pain), aortic dissection (no chest pain), malignant arrhythmia on ekg or any family history of sudden , or GI bleed (stable hgb). Low suspicion for PE given normal vital signs, absence of chest pain or dyspnea, no evidence of DVT, no recent surgery/immobilization. Based on azerbaijani syncope rule (see below), patient is low risk and well appearing here, plan to discharge the patient home with PMD follow up. [place] syncope rule: predisposition to vasovagal symptoms/consistent with vasovagal (-1), heart disease history (+1), SBP <90 or >180 on any reading (+2), elevated troponin (+2), abnormal QRSaxis < 30 or >100 degrees (+1), QRS duration > 130 ms (+1), cQT interval >480 ms (+2), ED dx of vasovagal (-2) or cardiac syncope (+2) --> <2 points = low risk of 30 day serious even (<3%), 2-3 points = medium risk (~5-8%), 4 or more points = high risk (12.9%). Details work-up below. Patient felt improved after she was additionally given Reglan and Benadryl IV. Discharged home with Reglan prescription and Keflex prescription for urinary tract infection. ED Course as of 01/24/23 1303 Sun Jan 24, 2023 1103 CBC auto differential(!) Normal [NEVA] 1103 HCG,URINE QUAL: Negative Negative [NEVA] 1103 EKG showed sinus rhythm, rate 69, no ST elevations or depressions on my interpretation. [NEVA] 1111 Comprehensive metabolic panel(!) Mild hyperglycemia with no evidence of DKA [NEVA] 1119 Urinalysis Complete with reflex to Culture(!) Possible UTI. Ceftriaxone ordered. [NEVA] 1121 TROPONIN I: <0.012 Normal [NEVA] 1121 MAGNESIUM: 1.8 Normal [NEVA] 1140 I reassessed the patient about 20 minutes ago. She said that she was still feeling nauseous soI ordered Reglan and Benadryl IV. [NEVA] 1221 About 10 minutes ago, give the patient some ice water as a p.o. challenge because she said sheis starting to feel better. [NEVA] 1300 Patient is tolerating p.o. Will discharge. [NEVA] ED Course User Index [NEVA] Abdirizak Ramirez MD Diagnoses as of 01/24/23 1303 Nausea and vomiting, unspecified vomiting type Syncope and collapse Diagnostic tests considered but not performed: I considered a CT scan of the head however the patient fell from standing and is not on anticoagulation so it is very low risk for cranial fracture or intracranial bleed. Diagnostics interpreted by me: As above Discussions with other clinicians: As above Chronic conditions impacting care: Diabetes CONSULTS: None CRITICAL CARE TIME I personally saw the patient and independently provided 0 minutes of non- concurrent critical care out of the total shared critical care time provided. PROCEDURES: Unless otherwise noted below, none Procedures Patients symptoms are consistent with sepsis, severe sepsis, or septic shock (If yes use .sepsiscoremeasure): no FINAL IMPRESSION 1. Nausea and vomiting, unspecified vomiting type 2. Syncope and collapse DISPOSITION/PLAN Discharge 01/24/2023 01:00:46 PM PATIENT REFERRED TO: Amykeiko Solorzano [address] [facility] [id number] Schedule an appointment as soon as possible for a visit DISCHARGE MEDICATIONS: New Prescriptions CEPHALEXIN (KEFLEX) 500 MG CAPSULE Take 1 capsule (500 mg) by mouth 2 times daily for 5 days. METOCLOPRAMIDE (REGLAN) 10 MG TABLET Take 1 tablet (10 mg) by mouth in the morning and 1 tablet (10mg) at noon and 1 tablet (10 mg) in the evening and 1 tablet (10 mg) before bedtime. Do all this for 7 days. (Please note: Portions of this note were completed with a voice recognition program. Efforts were made to edit the dictations but occasionally words and phrases are mis-transcribed.) Abdirizak Ramirez MD [facility] Emergency Medicine Physician [facility] Abdirizak Ramirez MD 01/24/23 1303 [id number] Discharge summary Author Lexus Villatoro [facility] January 15, 2023 2:12pm Note Date/Time January 15, 2023 2:11p m [facility] Medical Records Department [address] [place] [address] Instructions for Home/Discharge Instructions 01/15/23 1411 MR#: [id number] Acct: [id number] Name: GIVENSGHISLAINE VERENICE Rep #:[id number] : 1990 32 From: Lexus Villatoro MD PCP: [facility] St atus:ADM BOB Discharge Instructions Diet Discharge Diet: Light diet - advance as tolerated Activity Discharge Activity: Return to Normal Activity Follow Up Care Test Results: Test results from this visit will be discussed in further detail at your follow- up appointment, if applicable. Discharge Plan Admission Admit Date/Time: 01/14/23 15:52 Primary Reason for Your Visit: Nausea and abdominal pain Attending Provider: Lexus Villatoro [facility] Inst[facility] Patient Instructions: Cannabinoid Hyperemesis Syndrome, ED Constipation (Adult), ED Diet Vomiting Diarrhea, ED Vomiting (Adult) Additional Instructions / Restrictions: DISCHARGE INSTRUCTIONS PLEASE READ *Please take this with you to your next doctors appointment* -Would recommend lab work (BMP) to check your potassium in 2 to 3 days through your primary care physician's office. Please call their office upon discharge to obtain order for lab work. -You will be sent in prescription for scopolamine patch for nausea and suppository, it is very important that you begin a bowel regimen and that you keep your bowel movements regular -Recommend holding your metformin until your oral intake improves and you are able to tolerate liquids and have improved eating -It is highly advised you refrain from any cannabis use -Please call your primary care provider's office upon discharge to schedule a hospital follow up within 1 week. -For any concerning signs or symptoms please call 911 or proceed to the nearest emergency department Discharge Orders/Prescriptions Prescriptions: New scopolamine base 1 mg over 3 days patch 3 day 1 patch transdermal Q3D PRN (Reason: nausea and vomiting) Qty: 4 0RF bisacodyl [Dulcolax (bisacodyl)] 10 mg suppository 10 mg [place] DAILY 3 Days Qty: 12 0RF Rx Instructions: Hold for diarrhea Continued albuterol sulfate [Ventolin HFA] 90 mcg/actuation HFA aerosol inhaler 1 inh INHALATION Q4H insulin glargine [Lantus Solostar U-100 Insulin] 100 unit/mL (3 mL) insulin pen 15 unit SUBCUT BID Patient Comments: inject 20 units subcutaneous twice daily hyoscyamine sulfate [Levsin/SL] 0.125 mg tablet, sublingual 0.125 mg PO TID PRN (Reason: abdominal pain) Qty: 10 0RF ondansetron 4 mg tablet,disintegrating 4 mg PO Q8H PRN PRN (Reason: Nausea) Qty: 10 0RF promethazine 25 mg tablet 25 mg PO TID PRN (Reason: nausea and vomiting) Qty: 20 0RF trazodone 300 mg tablet 300 mg PO QHS Patient Comments: take 1 tablets 30 minutes before bedtime Held metformin 500 mg tablet 1,000 mg PO BID Hold Instructions: Resume on 01/20/23. Hold until nausea, vomiting, oral intake improve Discontinued sulfamethoxazole-trimethoprim 800-160 mg tablet 1 tab PO BID sulfamethoxazole-trimethoprim [Bactrim DS] 800-160 mg tablet 1 tab PO BID 2 Days Qty: 4 0RF cephalexin 500 mg capsule 500 mg PO TID 7 Days Qty: 21 0RF dicyclomine 20 mg tablet 20 mg PO TID Qty: 14 0RF ondansetron 4 mg tablet,disintegrating 4 mg PO Q6H PRN (Reason: nausea and vomiting) Qty: 7 0RF [facility] - Within 1 Week Disposition Disposition (needs filled in before D/C Order can be placed): Home, Self Care 01/15/231410<Electronically signed by Lexus Villatoro MD>Lexus Villatoro MD CC: [facility] ~ Signed ADDENDUM by Dr. Lexus Villatoro MD on 01/15/23 at 1412 You were noted to have a small ovarian cyst, this was seen previous on a scan ofyour abdomen as well. Please follow up with your PCP or ob/sight effects specialist for further management and monitoring 01/15/23 141<Electronically signed by Lexus Villatoro MD>Lexus Villatoro MD cc: [facility] ~* Signed [facility] Work Phone: 1(697) 633-640107-07-2023 Discharge summary Author Lexus Villatoro [facility] January 15, 2023 2:23pm Note Date/Time January 15, 2023 2:12p m [facility] Medical Records Department [address] [place] [address] Discharge Summary 01/15/23 141 MR#: [id number] Acct: [id number] Name: GHISLAINE GIVENS Rep #:[id number] : 1990 32 From: Lexus Villatoro MD PCP: [facility] St atus:ADM BOB Location: [place] [address] Providers Date of Admission: 01/14/23 Date of Discharge: 01/15/23 Primary Care Physician: [facility] Reason For Visit: INTRACTABLE NAUSEA VOMITING, HYPOKALEMIA Diagnosis Discharge Diagnosis (1) Intractable nausea and vomiting: Status: Acute Code(s): R11.2 - Nausea with vomiting, unspecified (2) Elevated serum creatinine: Status: Acute Code(s): R79.89 - Other specified abnormal findings of blood chemistry (3) Acute hypokalemia: Status: Acute Code(s): E87.6 - Hypokalemia (4) Failure of outpatient treatment: Status: Acute Code(s): Z78.9 - Other specified health status (5) Cannabis abuse: Status: Acute Code(s): F12.10 - Cannabis abuse, uncomplicated (6) Diabetes: Status: Acute Code(s): E11.9 - Type 2 diabetes mellitus without complications Qualifiers: Diabetes mellitus complication status: with neurologic complications Diabetes mellitus intermediate insulin use: without intermediate use Diabetes mellitus type: type 2 Plan #Intractable nausea vomiting associated with constipation #Cannabis use #CKDIIIb #Hypokalemia #Type 2 diabetes mellitus, on insulin, uncontrolled #Left ovarian cyst Medications at Discharge Home Medications albuterol sulfate 90 mcg/actuation aerosol inhaler (Ventolin HFA) 1 inh inhalation Q4H SOB 04/06/22 metformin 500 mg tablet 1,000 mg PO BID DM 06/24/22 insulin glargine 100 unit/mL (3 mL) subcutaneous pen (Lantus Solostar U-100 Insulin) 15 unit subcut BID diabetes 08/12/22 hyoscyamine sulfate 0.125 mg sublingual tablet (Levsin/SL) 0.125 mg PO TID PRN abdominal pain #10 tabs 01/07/23 ondansetron 4 mg disintegrating tablet 4 mg PO Q8H PRN PRN Nausea #10 tabs 01/07/23 promethazine 25 mg tablet 25 mg PO TID PRN nausea and vomiting #20 tabs 01/09/23 trazodone 300 mg tablet 300 mg PO QHS 01/12/23 bisacodyl 10 mg rectal suppository (Dulcolax (bisacodyl)) 10 mg AZ DAILY 3 days #12 ea 01/15/23 scopolamine base 1 mg over 3 days transdermal patch 1 patch transdermal Q3D PRN nausea and vomiting #4 ea 01/15/23 Hospital Course Summary of Care Provided Minutes Spent on Discharge: 31 Hospital Course: GHISLAINE GIVENS, is a 32-year-old female with history of type 2 diabetes mellitus, hypertension, depression who presents to [facility] 01/14/2023 with 1 week of nausea, vomiting, difficulty tolerating p.o. Was initially thought that maybe she had cannabis hyperemesis syndrome as this is happened to her in the past reportedly but she reported she only smoked once a week ago and has not since. In the ED this visit she had presented to the ED several times over several days with the same symptoms with no underlying etiology identified and due to creatinine trending up, potassium low and intractable symptoms hospitalist consulted for admission. CT abdomen in ED overall unremarkable with only small hiatal hernia, normal urinary bladder and a2.1 cm left ovarian cyst with no other acute abnormalities. Patient admitted and hypokalemia treated and she was given IV fluids and medications for nausea as well as suppository. In the a.m. patient reports she wants to go home, has not had a bowel movement and refused her Dulcolax suppository in the morning andsaid that her abdominal pain and nausea are slightly better. Discussed that shestill has the constipation in about her hypokalemia and potential for dehydration and she verbalized her understanding and still would like to leave and manage this on an outpatient basis. She reports in past scopolamine patcheshave helped her and she is willing to do suppositories at home and drink liquidswith electrolytes and slowly advance her diet. Patient has capacity make this decision. I suspect this is multifactorial with constipation being contributingfactor but additionally think that cannabis may play a role as she said the capsaicin helps and she said the most helpful thing for her are showers which isconsistent with cannabis induced. Patient verbalized her understanding of rationale for the recommendation that she stay and has capacity make this decision at this time. She is also informed of the low potassium and she reports she will try to adjust her diet for this, strongly recommend lab work asbelow. D/c instructions as follows: -Would recommend lab work (BMP) to check your potassium in 2 to 3 days through your primary care physician's office. Please call their office upon discharge to obtain order for lab work. -You will be sent in prescription for scopolamine patch for nausea and suppository, it is very important that you begin a bowel regimen and that you keep your bowel movements regular -Recommend holding your metformin until your oral intake improves and you are able to tolerate liquids and have improved eating -It is highly advised you refrain from any cannabis use -You were noted to have a small ovarian cyst, this was seen previous on a scan of your abdomen as well. Please follow up with your PCP or ob/sight effects specialist for further management and monitoring -Please call your primary care provider's office upon discharge to schedule a hospital follow up within 1 week. -For any concerning signs or symptoms please call 911 or proceed to the nearest emergency department Physical Exam Narrative General: Alert, oriented, appears upset HEENT: Atraumatic, normocephalic Eyes: Anicteric, normal conjunctiva, extraocular movements grossly intact Neck: Supple Respiratory: Clear to auscultation bilaterally, normal respiratory effort Cardiovascular: Regular rate and rhythm GI: Soft, nondistended, diffusely complains of not feeling well with no localizing symptoms Extremities: No edema Musculoskeletal: Moving all extremities Neuro: No overt focal neurological deficits Skin: No rashes appreciated Psych: Tearful Weight / BMI Weight Weight: 104 kg Body Mass Index (BMI) 37.0 ABG / Lab / Microbiology Data 01/15/23 05:40 01/15/23 05:40 Laboratory: Laboratory Results - last 24 hr 01/14/23 13:32: Urine RBC 0-5 SEEN, Urine WBC 0-5 SEEN, Ur Squamous Epith Cells 0-5 SEEN, Urine Bacteria RARE, Urine Mucus 0 SEEN 01/14/23 13:33: Urine Opiates Screen NEGATIVE, Urine Methadone Screen NEGATIVE, Ur Barbiturates Screen NEGATIVE, Ur Phencyclidine Scrn NEGATIVE, Ur AmphetaminesScreen NEGATIVE, MDMA (Ecstasy) Screen NEGATIVE, U Benzodiazepines Scrn NEGATIVE, Urine Cocaine Screen NEGATIVE, U Cannabinoids Screen POSITIVE H, Ur Drug Screen Comment 01/14/23 16:55: Lactic Acid 1.3 01/14/23 17:34: POC Glucose 189 H 01/14/23 22:04: POC Glucose 174 H 01/15/23 05:40: WBC 9.4, RBC 4.43, Hgb 11.7 L, Hct 35.6 L, MCV 80.4 L, MCH 26.4 L, MCHC 32.9, RDW Std Deviation 40.1, RDW Coeff of John 13.8, Plt Count 361, MPV 9.3, Immature Gran % (Auto) 0.600, Neut % (Auto) 56.4, Lymph % (Auto) 34.2, Bacon% (Auto) 8.2, Eos % (Auto) 0.3, Baso % (Auto) 0.3, Absolute Neuts (auto) 5.3, Absolute Lymphs (auto) 3.20, Nucleated RBC % 0, Sodium 136, Potassium 3.1 L, Chloride 105, Carbon Dioxide 26.0, Anion Gap 5, BUN 6 L, Creatinine 0.91, Estim Creat Clear Calc 84.62, Est GFR (MDRD) Af Amer 93, Est GFR (MDRD) Non-Af 77, BUN/Creatinine Ratio 6.6 L, Glucose 154 H, Calcium 8.2 L, Magnesium 2.0, Total Bilirubin 0.60, AST 13 L, ALT 14, Alkaline Phosphatase 54, Total Protein 7.1, Albumin 3.0 L, Globulin 4.1, Albumin/Globulin Ratio 0.7 L, TSH 2.30 01/15/23 06:11: POC Glucose 182 H 01/15/23 11:20: POC Glucose 247 H Microbiology: Microbiology 01/14/23 13:32 Urine, Clean Catch Urine Culture - Final Mixed Gram Positive Organisms D/C Instructions Discharge Diet: Light diet - advance as tolerated Meaningful Use Info Meaningful Use Diagnoses (Choose all that apply): None applicable Discharge Plan Admission Admit Date/Time: 01/14/23 15:52 Primary Reason for Your Visit: Nausea and abdominal pain Attending Provider: Lexus Villatoro [facility] Inst[facility] Patient Instructions: Cannabinoid Hyperemesis Syndrome, ED Constipation (Adult), ED Diet Vomiting Diarrhea, ED Vomiting (Adult) Additional Instructions / Restrictions: DISCHARGE INSTRUCTIONS PLEASE READ *Please take this with you to your next doctors appointment* -Would recommend lab work (BMP) to check your potassium in 2 to 3 days through your primary care physician's office. Please call their office upon discharge to obtain order for lab work. -You will be sent in prescription for scopolamine patch for nausea and suppository, it is very important that you begin a bowel regimen and that you keep your bowel movements regular -Recommend holding your metformin until your oral intake improves and you are able to tolerate liquids and have improved eating -It is highly advised you refrain from any cannabis use -You were noted to have a small ovarian cyst, this was seen previous on a scan of your abdomen as well. Please follow up with your PCP or ob/sight effects specialist for further management and monitoring -Please call your primary care provider's office upon discharge to schedule a hospital follow up within 1 week. -For any concerning signs or symptoms please call 911 or proceed to the nearest emergency department Discharge Orders/Prescriptions Prescriptions: New scopolamine base 1 mg over 3 days patch 3 day 1 patch transdermal Q3D PRN (Reason: nausea and vomiting) Qty: 4 0RF bisacodyl [Dulcolax (bisacodyl)] 10 mg suppository 10 mg [place] DAILY 3 Days Qty: 12 0RF Rx Instructions: Hold for diarrhea Continued albuterol sulfate [Ventolin HFA] 90 mcg/actuation HFA aerosol inhaler 1 inh INHALATION Q4H insulin glargine [Lantus Solostar U-100 Insulin] 100 unit/mL (3 mL) insulin pen 15 unit SUBCUT BID Patient Comments: inject 20 units subcutaneous twice daily hyoscyamine sulfate [Levsin/SL] 0.125 mg tablet, sublingual 0.125 mg PO TID PRN (Reason: abdominal pain) Qty: 10 0RF ondansetron 4 mg tablet,disintegrating 4 mg PO Q8H PRN PRN (Reason: Nausea) Qty: 10 0RF promethazine 25 mg tablet 25 mg PO TID PRN (Reason: nausea and vomiting) Qty: 20 0RF trazodone 300 mg tablet 300 mg PO QHS Patient Comments: take 1 tablets 30 minutes before bedtime Held metformin 500 mg tablet 1,000 mg PO BID Hold Instructions: Resume on 01/20/23. Hold until nausea, vomiting, oral intake improve Discontinued sulfamethoxazole-trimethoprim 800-160 mg tablet 1 tab PO BID sulfamethoxazole-trimethoprim [Bactrim DS] 800-160 mg tablet 1 tab PO BID 2 Days Qty: 4 0RF cephalexin 500 mg capsule 500 mg PO TID 7 Days Qty: 21 0RF dicyclomine 20 mg tablet 20 mg PO TID Qty: 14 0RF ondansetron 4 mg tablet,disintegrating 4 mg PO Q6H PRN (Reason: nausea and vomiting) Qty: 7 0RF Referrals / Follow Up[facility] [Primary Care Provider] - Within 1 Week Disposition Disposition (needs filled in before D/C Order can be placed): Home, Self Care Charges/Coding Visit Charges Inpatient E&M: 15589 Disch Hosp >30min 01/15/23 1423 <Electronically signed by Lexus Villatoro MD> Cosigner Signature (if applicable): CC: Dr. Lexus Villatoro MD; [facility]~ Signed [facility] Work Phone: 1(540) 693-204207-06-2023 History and physical note Author Lexus Villatoro [facility] January 14, 2023 6:10pm Note Date/Time January 14, 2023 3:59p m [facility] Medical Records Department [address] [place] [address] H&P Exam - Hospitalist 01/14/23 1552 MR#: [id number] Acct: [id number] Name: GHISLAINE GIVENS Rep #:[id number] : 1990 32 From: Lexus Villatoro MD PCP: [facility] St atus:ADM BOB Location: [facility] [id number] HPI - General General Date of Admission: 01/14/23 Date of Service: 01/14/23 Chief Complaint: Nausea HPI Narrative GHISLAINE GIVENS, is a 32-year-old female with history of type 2 diabetes mellitus, hypertension, depression who presents to [facility] 01/14/2023 with 1 week of nausea, vomiting, difficulty tolerating p.o. Was initially thought that maybe she had cannabis hyperemesis syndrome as this is happened to her in the past reportedly but she reported she only smoked once a week ago and has not since. In the ED this visit she had presented to the ED several times over several days with the same symptoms with no underlying etiology identified and due to creatinine trending up, potassium low and intractable symptoms hospitalist consulted for admission. CT abdomen in ED overall unremarkable with only small hiatal hernia, normal urinary bladder and a2.1 cm left ovarian cyst with no other acute abnormalities. Patient evaluated at bedside and reported that she has been nauseous and unable to keep anything down for a week and she does not remember the last time she had a bowel movementand notes that usually if she has not had a bowel movement in a while she will get symptoms like this. Has some general abdominal pain and cannot localize it at all. Reports urinating regularly. Denies any other specific complaints [facility] Medical History Anxiety Asthma Constipation Depression Diabetes mellitus with diabetic polyneuropathy Hypertension Type 2 diabetes mellitus with foot ulcer Home Medications albuterol sulfate 90 mcg/actuation aerosol inhaler (Ventolin HFA) 1 inh inhalation Q4H SOB 04/06/22 [History Last Taken 06/24/22] metformin 500 mg tablet 1,000 mg PO BID DM 06/24/22 [History Last Taken 06/24/22] insulin glargine 100 unit/mL (3 mL) subcutaneous pen (Lantus Solostar U-100 Insulin) 15 unit subcut BID diabetes 08/12/22 [History Last Taken Unknown] cephalexin 500 mg capsule 500 mg PO TID 7 days #21 caps 11/19/22 [Rx Last Taken Unknown] sulfamethoxazole 800 mg-trimethoprim 160 mg tablet 1 tab PO BID 11/19/22 [History Last Taken Unknown] sulfamethoxazole 800 mg-trimethoprim 160 mg tablet (Bactrim DS) 1 tab PO BID 2 days #4 tabs 11/19/22 [Rx Last Taken Unknown] hyoscyamine sulfate 0.125 mg sublingual tablet (Levsin/SL) 0.125 mg PO TID PRN abdominal pain #10 tabs 01/07/23 [Rx Last Taken Unknown] ondansetron 4 mg disintegrating tablet 4 mg PO Q8H PRN PRN Nausea #10 tabs 01/07/23 [Rx Last Taken Unknown] dicyclomine 20 mg tablet 20 mg PO TID #14 tabs 01/09/23 [Rx Last Taken Unknown] promethazine 25 mg tablet 25 mg PO TID PRN nausea and vomiting #20 tabs 01/09/23[Rx Last Taken Unknown] ondansetron 4 mg disintegrating tablet 4 mg PO Q6H PRN nausea and vomiting #7 tabs 01/12/23 [Rx Last Taken Unknown] trazodone 300 mg tablet 300 mg PO QHS 01/12/23 [History Last Taken Unknown] Allergy/AdvReac Type Severity Reaction Status Date / Time No Known Allergies Allergy Verified 01/13/23 06:21 Family History Other Bleeding disorder Cancer Diabetes Hypertension Surgical History Hx of foot surgery Social History Smoking Status: Current every day smoker tobacco type: cigarettes alcohol intake: never substance use type: does not use what type of physical activity do you participate in: none ROS ROS Narrative General: Denies fever/chills HENT: Denies headache, denies stuffy nose, denies sore throat EYES: Denies changes in vision Resp: Denies cough, denies shortness of breath Cardiac: Denies chest pain GI: No BM in a couple weeks, generalized abdominal pain, nausea : Denies changes in urination Extremity: Denies swelling MSK: Denies weakness Neuro: Denies any numbness/tingling Heme: Denies any bleeding or bruising Skin: Denies rashes Psychiatric: Patient distressed over nausea Vital Signs Vital Signs Vital Signs: 01/14/23 11:39 01/14/23 13:35 01/14/23 15:45 Temperature 98.1 F Temperature Source Temporal Pulse Rate 98 78 79 Respiratory Rate 18 16 23 H Blood Pressure 157/97 H 168/111 H 168/117 H Blood Pressure Mean 117 130 134 Pulse Ox 99 98 100 Oxygen Delivery Method Room Air Room Air Room Air 01/14/23 15:45 Temperature 97.2 F L Temperature Source Oral Pulse Rate 79 Respiratory Rate 16 Blood Pressure 168/117 H Blood Pressure Mean 134 Pulse Ox 100 Oxygen Delivery Method Room Air Weight Weight: 104.326 kg Body Mass Index (BMI) 37.1 Physical Exam Narrative General: Alert, oriented, appears acutely distressed HEENT: Atraumatic, normocephalic Eyes: Anicteric, normal conjunctiva, extraocular movements grossly intact Neck: Supple Respiratory: Clear to auscultation bilaterally, normal respiratory effort Cardiovascular: Regular rate and rhythm GI: Soft, nondistended, patient reports pain on palpation but no rebound, guarding, rigidity, no localizing factors Extremities: No edema Musculoskeletal: Moving all extremities Neuro: No overt focal neurological deficits Skin: No rashes appreciated Psych: Tearful Results Lab / Micro Data 01/14/23 12:20 01/14/23 12:20 Labs: Laboratory Results - last 24 hr 01/14/23 12:20: WBC 10.4, RBC 4.70, Hgb 12.4, Hct 37.9, MCV 80.6 L, MCH 26.4 L, MCHC 32.7, RDW Std Deviation 39.6, RDW Coeff of John 13.7, Plt Count 409, MPV 9.3, Immature Gran % (Auto) 0.800, Neut % (Auto) 59.7, Lymph % (Auto) 31.2, Bacon% (Auto) 7.7, Eos % (Auto) 0.2, Baso % (Auto) 0.4, Absolute Neuts (auto) 6.2, Absolute Lymphs (auto) 3.24, Nucleated RBC % 0, Sodium 135 L, Potassium 2.8 L, Chloride 101, Carbon Dioxide 25.0, Anion Gap 9, BUN 8, Creatinine 1.20 H, Estim Creat Clear Calc 64.17, Est GFR (MDRD) Af Amer 67, Est GFR (MDRD) Non-Af 56 L, BUN/Creatinine Ratio 6.7 L, Glucose 241 H, Lactic Acid 2.1 H*, Calcium 9.3, Total Bilirubin 0.60, AST 12 L, ALT 17, Alkaline Phosphatase 63, Total Protein 8.1, Albumin 3.4, Globulin 4.7 H, Albumin/Globulin Ratio 0.7 L, Serum ,Qual NEGATIVE 01/14/23 13:32: Urine Color Yellow, Urine Clarity Clear, Urine pH 8.0, Ur Specific [place] 1.015, Urine Protein 15 H, Urine Glucose (UA) 250 H, Urine Ketones 5 H, Urine Occult Blood 10 H, Urine Nitrite Negative, Urine Bilirubin Negative, Urine Urobilinogen Normal, Ur Leukocyte Esterase 25 H, Urine RBC 0-5 SEEN, Urine WBC 0-5 SEEN, Ur Squamous Epith Cells 0-5 SEEN, Urine Bacteria RARE,Urine Mucus 0 SEEN Radiology Impression Abdomen/Pelvis CT 01/14/23 12:03 IMPRESSION: 2.1 cm left ovarian cyst. Electronically Signed: Bernard Sadler MD at 13:57 EDT , Assessment & Plan Assessment/Plan (1) Intractable nausea and vomiting: (2) Elevated serum creatinine: (3) Acute hypokalemia: (4) Failure of outpatient treatment: PLAN: Plan #Intractable nausea vomiting associated with constipation -CT abdomen in ED largely unrevealing -Labs do not point to specific cause -Given her significant constipation with no bowel movement in a couple weeks with history of nausea and vomiting when this happens to her we will add suppository as she does not think she can take any oral medications to help withbowel movements -Has history of cannabis use, will obtain UA though denies use for 1 week -i's and O's -Daily weights -IVF -Clear liquids -If no improvement after bowel movement may need evaluation for gastroparesis orevaluated by GI for potential endoscopies -We will start PPI -Nausea control #CKDIIIb -Waxes and wanes, appears to be close to baseline, will receive IVF #Hypokalemia -Replace #Type 2 diabetes mellitus, on insulin, uncontrolled -A1c 12.1 in November, uncontrolled -Glucose checks and sliding scale insulin -Continue long-acting #Left ovarian cyst -2.1 cm left ovarian cyst seen on CT -Last CT demonstrated the left ovarian cyst at roughly 1.8 x 2 cm and a smaller cyst in the right ovary #DVT ppx: Lovenox subcu Lexus Villatoro MD Time spent in the patient's overall evaluation,decision-making process, review of diagnostic data, adjustment of management, discussion with other providers, nursing nursing and ancillary staff involved in patient's care documentation, 58minutes Charges/Coding Visit Charges Inpatient E&M: 63391 Init Hosp L2 01/14/23 1810 <Electronically signed by Lexus Villatoro MD> Cosigner Signature (if applicable): CC: Dr. Lexus Villatoro MD; [facility]~ Signed [facility] Work Phone: 1(825) 551-553407-06-2023 Discharge summary Author Willie Dhillon [facility] January 14, 2023 3:33pm Note Date/Time January 14, 2023 12:[address] [facility] Medical Records Department [address] [place] [address] Emergency Department Summary 01/14/23 MR#: [id number] Acct: [id number] Name: GHISLAINE GIVENS Rep #:[id number] : 1990 32 From: Willie Dhillon MD PCP: [facility] at:[facility] Location: ED HPI History of Present Illness Chief Complaint: Nausea/Vomiting Narrative Narrative: Patient represents with nausea vomiting abdominal cramping. Patient's had multiple visits here for the same. She initially got relief from Zofran and that stopped working. It sounds like she is also been prescribed Phenergan. She has been on Bentyl. I do not see Reglan. She denies any known history of gastroparesis but she has been diagnosed with diabetic neuropathy in the past. She was smoking marijuana but stopped about a week ago. She states she was not a heavy smoker prior to that. She does have a history of the same issue about a year ago but states that was due to constipation. She has not moved her bowels in almost a week but she also has not been eating. She is still taking some of her insulin and diabetic meds. She has not had fevers. She has allover abdominal soreness. She vomited a little blood last Wednesday but none since. Nothing seems to be helping. The last time she used the capsaicin cream was last evening. The last time she used Zofran was last evening. It sounds like she did try a Phenergan suppository right before she came in but prior to that she had not had any for a day or so. [facility] Medical History Anxiety Asthma Constipation Depression Diabetes mellitus with diabetic polyneuropathy Hypertension Type 2 diabetes mellitus with foot ulcer Home Medications albuterol sulfate 90 mcg/actuation aerosol inhaler (Ventolin HFA) 1 inh inhalation Q4H SOB 04/06/22 [History Last Taken 06/24/22] metformin 500 mg tablet 1,000 mg PO BID DM 06/24/22 [History Last Taken 06/24/22] insulin glargine 100 unit/mL (3 mL) subcutaneous pen (Lantus Solostar U-100 Insulin) 15 unit subcut BID diabetes 08/12/22 [History Last Taken Unknown] cephalexin 500 mg capsule 500 mg PO TID 7 days #21 caps 11/19/22 [Rx Last Taken Unknown] sulfamethoxazole 800 mg-trimethoprim 160 mg tablet 1 tab PO BID 11/19/22 [History Last Taken Unknown] sulfamethoxazole 800 mg-trimethoprim 160 mg tablet (Bactrim DS) 1 tab PO BID 2 days #4 tabs 11/19/22 [Rx Last Taken Unknown] hyoscyamine sulfate 0.125 mg sublingual tablet (Levsin/SL) 0.125 mg PO TID PRN abdominal pain #10 tabs 01/07/23 [Rx Last Taken Unknown] ondansetron 4 mg disintegrating tablet 4 mg PO Q8H PRN PRN Nausea #10 tabs 01/07/23 [Rx Last Taken Unknown] dicyclomine 20 mg tablet 20 mg PO TID #14 tabs 01/09/23 [Rx Last Taken Unknown] promethazine 25 mg tablet 25 mg PO TID PRN nausea and vomiting #20 tabs 01/09/23[Rx Last Taken Unknown] ondansetron 4 mg disintegrating tablet 4 mg PO Q6H PRN nausea and vomiting #7 tabs 01/12/23 [Rx Last Taken Unknown] trazodone 300 mg tablet 300 mg PO QHS 01/12/23 [History Last Taken Unknown] Allergy/AdvReac Type Severity Reaction Status Date / Time No Known Allergies Allergy Verified 01/13/23 06:21 Family History Other Bleeding disorder Cancer Diabetes Hypertension Surgical History Hx of foot surgery Social History Smoking Status: Current every day smoker tobacco type: cigarettes alcohol intake: never substance use type: does not use what type of physical activity do you participate in: none ROS ROS ED ROS Narrative A complete review of systems was performed and is negative except as documented in the history of present illness. Some specific details below. Constitutional: No recent fevers or chills. EYE: No visual complaints or pain. No change in eye color ENT: No difficulty swallowing. No swelling. No pain. She does admit to acid taste but she has been vomiting frequently. CV: No chest pain or palpitations. Respiratory: No dyspnea. No hemoptysis. No difficulty taking breaths. GI: Please see history of present illness. : No frequency dysuria or hematuria. Last menstrual cycle was about 2 weeks ago and normal timing no discharge. Musculoskeletal: No recent trauma. No pains. Skin: No rash. Nondiaphoretic. Neuro: No weakness or numbness. Endocrine: No polyuria or polydipsia. EXAM Physical Exam Narrative Exam Narrative: CONSTITUTIONAL: Patient is nontoxic in appearance. She is holding an emesis bag. She occasionally will have some retching but no actual productivity of liquid or material at this time. HEENT: No notable trauma. Mucous membranes do still look moist. No sinus tenderness. No indication of pain with swallowing. EYES: No conjunctival injection. No icterus. CARDIOVASCULAR: Regular rate. Regular rhythm. No notable murmur. No JVD. RESPIRATORY: No respiratory distress. Breathing is unlabored. No wheezes. No rhonchi. No rales. No pain with a deep breath. GASTROINTESTINAL: Not distended. Bowel sounds are normal. When I first touched her abdomen she moves. But then I am able to firmly press in most quadrants [place] am really not getting any notable tenderness. I feel no mass. Overall relatively benign abdomen. GENITOURINARY: No tenderness over the bladder. No CVA tenderness. MUSCULOSKELETAL: Atraumatic. No peripheral edema. No cord. No tenderness along the deep venous system. No asymmetry. NEUROLOGICAL: Patient is alert and appropriate. No focal deficit noted. SKIN: No noted rashes. No diaphoresis. PSYCHIATRIC: Patient is calm. Mood is appropriate. Const Vital Signs: 01/14/23 11:39 01/14/23 13:35 Temperature 98.1 F Temperature Source Temporal Pulse Rate 98 78 Respiratory Rate 18 16 Blood Pressure 157/97 H 168/111 H Blood Pressure Mean 117 130 Pulse Ox 99 98 Oxygen Delivery Method Room Air Room Air MDM MDM MDM Narrative Medical decision making narrative: Patient CBC shows no acute abnormalities. White count hemoglobin and platelets are normal. Patient's electrolytes does show a progressively worsening and lowering of her potassium is now down to 2.8. This is replaced with some IV potassium as she really cannot take oral. She also shows a progressively increasing creatinine at 1.2. Glucose is a bit high at 241 but her bicarb and gap are normal. I do not think this is DKA. Patient's lactate is mildly elevated. But this is likely due to to some dehydration and being on metformin. This should correct with IV fluids. Liver function test showed no acute process. Serum is negative. My independent interpretation of her CT scan of the abdomen pelvis with IV contrast shows no acute process. I do not see signs of constipation obstructionfree air ileus or mass. Final reading was negative other than a 2.1 cm left ovarian cyst. But this does not justify her symptoms. Patient has been seen here multiple times recently. She has been tried on dicyclomine, Zofran, Phenergan as an outpatient. She has also been using capsaicin cream. She has progressively rising creatinine and progressively decreasing potassium. I think at this point we have failed outpatient therapy. She has intractable nausea and vomiting. I do not think we can get her potassium up as an outpatient as she is really not going to tolerate that orally. I discussed the case with hospitalist and we will keep her in the hospital. Although this patient has never been diagnosed with gastroparesis this may be a part of her illness as she does have a history of some diabetic neuropathy. Lab Data Attestation: I reviewed the patient's lab results. Labs: Laboratory Results - last 24 hr 01/14/23 01/14/23 12:20 13:32 WBC 10.4 RBC 4.70 Hgb 12.4 Hct 37.9 MCV 80.6 L MCH 26.4 L MCHC 32.7 RDW Std Deviation 39.6 RDW Coeff of John 13.7 Plt Count 409 MPV 9.3 Immature Gran % (Auto) 0.800 Neut % (Auto) 59.7 Lymph % (Auto) 31.2 Bacon % (Auto) 7.7 Eos % (Auto) 0.2 Baso % (Auto) 0.4 Absolute Neuts (auto) 6.2 Absolute Lymphs (auto) 3.24 Nucleated RBC % 0 Sodium 135 L Potassium 2.8 L Chloride 101 Carbon Dioxide 25.0 Anion Gap 9 BUN 8 Creatinine 1.20 H Estim Creat Clear Calc 64.17 Est GFR (MDRD) Af Amer 67 Est GFR (MDRD) Non-Af 56 L BUN/Creatinine Ratio 6.7 L Glucose 241 H Lactic Acid 2.1 H* Calcium 9.3 Total Bilirubin 0.60 AST 12 L ALT 17 Alkaline Phosphatase 63 Total Protein 8.1 Albumin 3.4 Globulin 4.7 H Albumin/Globulin Ratio 0.7 L Serum , Qual NEGATIVE Urine Color Yellow Urine Clarity Clear Urine pH 8.0 Ur Specific [place] 1.015 Urine Protein 15 H Urine Glucose (UA) 250 H Urine Ketones 5 H Urine Occult Blood 10 H Urine Nitrite Negative Urine Bilirubin Negative Urine Urobilinogen Normal Ur Leukocyte Esterase 25 H Urine RBC 0-5 SEEN Urine WBC 0-5 SEEN Ur Squamous Epith Cells 0-5 SEEN Urine Bacteria RARE Urine Mucus 0 SEEN Radiography Diagnostic Testing: Clinical Impression(s) from Imaging Studies Abdomen/Pelvis CT 01/14/23 12:03 IMPRESSION: 2.1 cm left ovarian cyst. Electronically Signed: Bernard Sadler MD at 13:57 EDT , Discharge Plan Dx/Rx/DC Orders Clinical Impression: Failure of outpatient treatment, Elevated serum creatinine, Intractable nausea and vomiting, Acute hypokalemia Disposition Disposition: Acute Care Hospital [facility] What to do if you have Problems For any increased pain, shortness of breath, bleeding, nausea or vomiting, chestpain, or any unexpected problems, contact your Primary Care Provider. Call [facility] ([phone]) or report to the closest Emergency Room. Call 911 if necessary. 01/14/233 <Electronically signed by Willie Dhillon MD> Cosigner Signature (if applicable): CC: [facility] ~ Signed [facility] Work Phone: [phone]) 656-346307-04-2023 Discharge summary Author Fabricio Guevara [facility] January 12, 2023 1:18pm Note Date/Time January 12, 2023 10:[address] [facility] Medical Records Department [address] [place] [address] Emergency Department Summary 01/12/23 MR#: [id number] Acct: [id number] Name: GHISLAINE GIVENS Rep #:[id number] : 1990 32 From: Fabricio Guevara MD PCP: [facility] Location: ED HPI HPI - GI History of Present Illness Chief Complaint: Nausea/Vomiting Informant: patient Nausea/Vomiting/Emesis GI Symptom: Positive for Nausea and Vomiting Onset: Days Severity: Moderate Diarrhea/Melena/Hematochezia GI Symptom: Negative for Diarrhea, Melena or Hematochezia Associated Symptoms Associated Symptoms: Negative for Dysuria, Frequency, Hematuria or Urgency Narrative Narrative: 32-year-old female history of marijuana use. History of hyperemesis syndrome. Had nausea and vomiting for 6 days. She has been seen here and other local emergency departments. States she has had continued nausea and vomiting. Denies any fever or chills. No diarrhea. No dysuria. Prior similar symptoms: Yes Recent Illness/Hospitalization: No [facility] Medical History Anxiety Asthma Constipation Depression Diabetes Diabetes mellitus with diabetic polyneuropathy Hypertension Type 2 diabetes mellitus with foot ulcer Home Medications albuterol sulfate 90 mcg/actuation aerosol inhaler (Ventolin HFA) 1 inh inhalation Q4H SOB 04/06/22 [History Last Taken 06/24/22] metformin 500 mg tablet 1,000 mg PO BID DM 06/24/22 [History Last Taken 06/24/22] insulin glargine 100 unit/mL (3 mL) subcutaneous pen (Lantus Solostar U-100 Insulin) 15 unit subcut BID diabetes 08/12/22 [History Last Taken Unknown] cephalexin 500 mg capsule 500 mg PO TID 7 days #21 caps 11/19/22 [Rx Last Taken Unknown] sulfamethoxazole 800 mg-trimethoprim 160 mg tablet 1 tab PO BID 11/19/22 [History Last Taken Unknown] sulfamethoxazole 800 mg-trimethoprim 160 mg tablet (Bactrim DS) 1 tab PO BID 2 days #4 tabs 11/19/22 [Rx Last Taken Unknown] hyoscyamine sulfate 0.125 mg sublingual tablet (Levsin/SL) 0.125 mg PO TID PRN abdominal pain #10 tabs 01/07/23 [Rx Last Taken Unknown] ondansetron 4 mg disintegrating tablet 4 mg PO Q8H PRN PRN Nausea #10 tabs 01/07/23 [Rx Last Taken Unknown] dicyclomine 20 mg tablet 20 mg PO TID #14 tabs 01/09/23 [Rx Last Taken Unknown] promethazine 25 mg tablet 25 mg PO TID PRN nausea and vomiting #20 tabs 01/09/23[Rx Last Taken Unknown] ondansetron 4 mg disintegrating tablet 4 mg PO Q6H PRN nausea and vomiting #7 tabs 01/12/23 [Rx Last Taken Unknown] trazodone 300 mg tablet 300 mg PO QHS 01/12/23 [History Last Taken Unknown] Allergy/AdvReac Type Severity Reaction Status Date / Time No Known Allergies Allergy Verified 01/11/23 23:00 Family History Other Bleeding disorder Cancer Diabetes Hypertension Surgical History Hx of foot surgery Social History Smoking Status: Current every day smoker tobacco type: cigarettes alcohol intake: never substance use type: does not use what type of physical activity do you participate in: none ROS ROS ED ROS Narrative Nausea and vomiting. Review of Systems ROS Unobtainable: Denies due to encephalopathy Constitutional Constitutional ED: Denies chills or fever(s) ENT ENT ED: Denies ear pain Cardiovascular Cardiovascular: Denies chest pain Respiratory/Chest Respiratory/Chest: Denies cough or dyspnea Gastrointestinal Gastrointestinal: Reports nausea and vomiting; Denies constipation or diarrhea Genitourinary Genitourinary ED: Denies dysuria or hematuria Musculoskeletal Musculoskeletal: Denies arthralgias Integumentary Denies abscess Neurologic Neurologic: Denies headache(s) Psychiatric Psychiatric: Denies anxiety or depression Endocrine Endocrinology: Denies polydipsia Hematologic/Lymphatic Hematologic/Lymphatic: Denies easy bleeding Allergic/Immunologic Allergic/Immunologic ED: Denies mouth swelling or tongue swelling EXAM Physical Exam Narrative Exam Narrative: 32-year-old female retching. Vital signs stable afebrile. She does not look septic or toxic. H EENT exam dry mucous membranes. Neck nontender. Lungs clear to auscultation bilaterally. Heart regular rhythm rate about 85 no murmur. Abdomen soft nondistended normal bowel sounds no peritoneal signs. No localizing tenderness. No hernia or mass. No obstruction. Moving all 4 extremities. Nontender no edema. She is awake and alert. Answering questions following commands. Const Vital Signs: 01/12/23 10:45 Temperature 95.2 F L Temperature Source Temporal Pulse Rate 85 Respiratory Rate 16 Blood Pressure 162/05 H Blood Pressure Mean 57 Pulse Ox 99 Oxygen Delivery Method Room Air Positive well nourished and well developed; Negative for cachectic, contracturesor unkempt General Appearance ED: well developed and NAD; Negative for unkempt, cachectic, contractures or pallor Nutritional Appearance: Negative for cachectic HEENT Reports dry mucous membranes; Denies moist mucous membranes normocephalic and atraumatic; Negative for trauma or tenderness Mouth ED: Yes dry mucous membranes Mouth: dry mucous membranes Eyes PERRL and EOMs intact bilaterally General Eye ED: Negative for pale conjunctiva or scleral icterus Neck no lymphadenopathy, supple and no JVD General: Negative for tenderness Carotids: Negative for other Lymph Lymphatic: Negative for other Resp normal respiratory effort and clear to auscultation bilaterally Effort and Inspection: Negative for respiratory distress Auscultation: Negative for rales, rhonchi or wheezes Cardio regular rate, regular rhythm, S1 normal heart sound, S2 normal heart sound and no murmurs Rate: Negative for bradycardia or tachycardic Rhythm: Negative for abnormal rhythm GI non-tender, non-distended and no masses Inspection: Negative for abdominal distention Auscultation: normoactive bowel sounds Palpation: soft; Negative for tender, guarding, rigid, hepatomegaly, splenomegaly, hernia, mass, pulsatile mass or rebound tenderness present Back/Spine no CVA tenderness General Back: Negative for CVA tenderness Cervical Spine: Negative for cervical spine tenderness Thoracic Spine / Upper Back: Negative for thoracic spinal tenderness Lumbar Spine / Lower Back: Negative for lumbar spinal tenderness Coccyx: Negative for other Extremity full ROM General Extremety ED: Negative for edema or tenderness General Extremity: Negative for edema Neuro CN's II-XII intact bilaterally and moves all extremities Sensorium / Orientation: alert, oriented to person, oriented to place and oriented to time; Negative for orientation impaired, confused, lethargic or stuporous Motor Exam: strength 5/5 throughout Psych mental status grossly normal and thought process normal Appearance: Negative for unkempt Attitude: No agitated Mood & Affect: Negative for depressed, anxious or tearful Skin no wounds General Skin Exam: Negative for jaundice or pallor Lesions: no lesions Rashes: no rashes Trauma: Negative for abrasion Nails: Negative for discolored MDM MDM MDM Narrative Medical decision making narrative: 32-year-old with nausea and vomiting history of hyperemesis syndrome from cannabis use. Her last cannabis use was within the last week. She denies any fever, chills or diarrhea. She will be treated with IV fluids, Zofran, Ativan and Benadryl. A liter normal saline. I am checking a chemistry panel because of her history of diabetes. Repeat exam patient is doing well at 1:15 PM. Abdomen is benign. Her nausea and vomiting is resolved. She will be discharged home with Zofran. Fluids and rest. I urged her to stop using smoking marijuana that her symptoms would continue as long as she continues to use it. History & Record Review Discussion w/independent historian: Patient Lab Data Attestation: I reviewed the patient's lab results. Lab results narrative: Chemistry shows a potassium of 3.0. Gap is 6. Normal BUN and creatinine of 7 and 1. Glucose is 208 she is diabetic. Labs: Laboratory Results - last 24 hr 01/12/23 11:20 Sodium 137 Potassium 3.0 L Chloride 105 Carbon Dioxide 26.0 Anion Gap 6 BUN 7 Creatinine 1.00 Estim Creat Clear Calc 77.01 Est GFR (MDRD) Af Amer 84 Est GFR (MDRD) Non-Af 69 BUN/Creatinine Ratio 7.0 L Glucose 208 H Calcium 8.7 Discharge Plan Triage Chief Complaint: Nausea/Vomiting ED Provider: Fabricio Guevara Dx/Rx/DC Orders Clinical Impression: Cannabis hyperemesis syndrome concurrent with and due to cannabis abuse, Diabetes Instructions: ED Drug Abuse, ED Vomiting (Adult) Prescriptions: New ondansetron 4 mg tablet,disintegrating 4 mg PO Q6H PRN (Reason: nausea and vomiting) Qty: 7 0RF No Action albuterol sulfate [Ventolin HFA] 90 mcg/actuation HFA aerosol inhaler 1 inh INHALATION Q4H metformin 500 mg tablet 1,000 mg PO BID insulin glargine [Lantus Solostar U-100 Insulin] 100 unit/mL (3 mL) insulin pen 15 unit SUBCUT BID Patient Comments: inject 10 units subcutaneous twice daily sulfamethoxazole-trimethoprim 800-160 mg tablet 1 tab PO BID sulfamethoxazole-trimethoprim [Bactrim DS] 800-160 mg tablet 1 tab PO BID 2 Days Qty: 4 0RF cephalexin 500 mg capsule 500 mg PO TID 7 Days Qty: 21 0RF hyoscyamine sulfate [Levsin/SL] 0.125 mg tablet, sublingual 0.125 mg PO TID PRN (Reason: abdominal pain) Qty: 10 0RF ondansetron [ondansetron] 4 mg tablet,disintegrating 4 mg PO Q8H PRN PRN (Reason: Nausea) Qty: 10 0RF promethazine 25 mg tablet 25 mg PO TID PRN (Reason: nausea and vomiting) Qty: 20 0RF dicyclomine 20 mg tablet 20 mg PO TID Qty: 14 0RF trazodone 300 mg tablet 300 mg PO QHS Patient Comments: take 1 tablets 30 minutes before bedtime [facility] [Primary Care Provider] - 3-5 Days if not improving Activity Restrictions/Additional Instructions: Zofran as needed for nausea. Follow-up with your doctor as needed. Stop using marijuana. Disposition Disposition: Home, Self Care What to do if you have Problems For any increased pain, shortness of breath, bleeding, nausea or vomiting, chestpain, or any unexpected problems, contact your Primary Care Provider. Call [facility] ([phone]) or report to the closest Emergency Room. Call 911 if necessary. 01/12/23 1318 <Electronically signed by Fabricio Guevara MD> Cosigner Signature (if applicable): CC: [facility] ~ Signed [facility] Work Phone: [phone] 720-300507-04-2023 Note. MICRO - Microbiology PROCEDURE: Urine Culture [*1] SOURCE: Urine BODY SITE: COLLECTED DATE/TIME: 01/10/2023 14:51 EDT RECEIVED DATE/TIME: 01/10/2023 22:02 EDT START DATE/TIME: 01/10/2023 22:02 EDT FREE TEXT SOURCE: FINAL REPORTS Final Report [] Verified Date/Time/Personnel: 01/12/2023 07:57 EDT 10,000 - 50,000 cfu/ml Multiple bacterial morphotypes present. Probable Contamination. Suggest recollection if clinically indicated. PRELIMINARY REPORTS Preliminary Report [] Verified Date/Time/Personnel: 01/11/2023 15:00 EDT Culture results pending. Performing Locations *1: This test was performed at: [facility], [address] [place] [address], [id number] , [facility] hospital ([place])01-10-2023 Hospital Discharge instructions Patient Education 01/10/2023 17:43:53 Vomiting (Adult) Vomiting (Adult) Vomiting is a common symptom that may be due to different causes. These include gastroenteritis (stomach flu), food poisoning and gastritis. There are other more serious causes of vomiting which may be hard to diagnose early in the illness. Therefore, it is important to watch for the warning signs listed below. The main danger from repeated vomiting is dehydration. This is due to excess loss of water and minerals from the body. When this occurs, your body fluids must be replaced. Home care If symptoms are severe, rest at home for the next 24 hours. Because your symptoms may be from an infection, wash your hands often and well. If soap and water are not available, use alcohol-based film crew member to keep from spreading the infection to others. Wash your hands for at least 20 seconds. Humming the happy birthday song twice while you wash is aneasy way to make sure you've washed for 20 seconds. Wash your hands after using the toilet, before and after preparing food, before eating food, after changing a diaper, cleaning a wound, caring for a sick person, and blowing your nose, coughing, or sneezing. You should also wash your hands after caring for someone who is sick, touching pet food, ortreats, and touching an animal, or animal waste. You may use acetaminophen or NSAID medicines like ibuprofen or naproxen to control fever, unless another medicine was prescribed. If you have chronic liver or kidney disease or ever had a stomach ulcer or gastrointestinal bleeding, talk with your doctor before using these medicines. Aspirin should never be used in anyone under 18 years of age who is ill with a fever. It may cause severe liver damage. Don't use NSAID medicines if you are already taking one for another condition (like arthritis) or are on aspirin (such as for heart disease, or after a stroke) Don't use tobacco and or drink alcohol, which may worsen your symptoms. If medicines for vomiting were prescribed, take as directed. Once vomiting stops, then follow these guidelines: During the first 12 to 24 hours follow the diet below: Fruit juices. Apple, grape juice, clear fruit drinks, and electrolyte replacement drinks. Beverages. Soft drinks without caffeine; mineral water (plain or flavored), decaffeinated tea and coffee. Soups. Clear broth and bouillon Desserts. Plain gelatin, ice pops, and fruit juice bars. As you feel better, you may add 6 to 8 ounces of yogurt per day. During the next 24 hours you may add the following to the above: Hot cereal, plain toast, bread, rolls, crackers Plain noodles, rice, mashed potatoes, chicken noodle or rice soup Unsweetened canned fruit such as applesauce, bananas (avoid pineapple and citrus) Limit caffeine and chocolate. No spices or seasonings except salt. During the next 24 hours: Gradually resume a normal diet, as you feel better and your symptoms lessen. Follow-up care Follow up with your healthcare provider, or as advised. When to seek medical advice Call your healthcare provider right away if any of these occur: Constant right-sided lower belly pain or increasing general belly pain Continued vomiting (unable to keep liquids down) for 24 hours Vomiting blood or coffee grounds Swollen belly Frequent diarrhea (more than 5 times a day); blood (red or black color) or mucus in diarrhea Reduced urine output or extreme thirst Weakness, dizziness or fainting Unusually drowsy or confused Fever of 100.4 F (38 C) oral or higher, or as directed Yellow color of the eyes or skin [id number] [employer]. [address] [place] [address]. All rights reserved. This information is not intended as a substitute for professional medical care. Always follow [facility] professional's instructions. 01/10/2023 17:43:45 Marijuana Abuse Marijuana Abuse Marijuana is the most widely used illegal drug in the [place]. It is called by various names such as pot, weed, blunts, grass, reefer, ganja, hash, or hashish. It is usually smoked but can be mixed with foods, or brewed as a tea. It is sometimes sold with PCP (dylan dust) or amphetamine mixedin it. These drugs can cause other harmful side effects. Marijuana can cause the following effects: Changes in mood (stimulated, happy, drowsy, depressed, paranoid) Hallucinations Increased heart rate and blood pressure Increased appetite Time distortion, difficulty concentrating, impaired memory Lung damage (similar to cigarettes with chronic cough, wheezing, frequent colds, and bronchitis) Decreased sperm count Dizziness, vertigo You can become psychologically dependent on marijuana. That means the craving to use the drug is emotional or psychological rather than due to physical withdrawal. Is marijuana running your life? Here are some of the signs: Relying on marijuana to feel good, forget problems, deal with stress or to relax Wanting to be alone most of the time or only with others who use drugs Losing interest in things that used to be important Changes in school or job performance or attendance Spending a lot of time thinking about how to get marijuana Stealing or selling your things so you can buy marijuana Unable to stop using even though you may want to quit Increasing anxiety, anger, or depression Sleeping too much, changes in eating habits (weight loss or gain) Needing to use more to get the same effect Home care The following suggestions will help you manage marijuana abuse: Once you have become addicted to any drug, quitting is hard to do. Most people find they can't quitwithout help. So, don t try to do this alone. Talk to someone you trust who can support you. Seek professional help. Avoid people and places where drugs are used. That only increases the temptation to use. Follow-up care Follow up with your healthcare provider, or as advised. For more information or a referral to a treatment center in your area, contact: Your local mental health center or the National Alcohol and Substance Abuse Information Center (267)-925-7498 www.addictioncareEduoraions.com National [place] on Alcoholism and Drug Dependence 284-528-5907 www.ncadd.org Marijuana Anonymous 230-305-6575 www.marijuana-anonymous.org When to seek medical advice Call your healthcare provider right away if any of these occur: You feel extreme depression, fear, anxiety, or anger toward yourself or others. You feel out of control. You feel that you may try to harm yourself or another. You experience chest pain or shortness of breath. [phone] [employer]. [address] [place] [address], [place] [id number]. All rights reserved. This information is not intended as a substitute for professional medical care. Always follow yourhealthcare professional's instructions. Follow Up Care 01/10/2023 13:44:57 With:Call Physician Referral Address:Unknown [facility] Discharge Instructions Thank you for allowing [facility] to assist you with your healthcare needs. The following is importantdischarge information regarding your hospital visit. Diagnosis from Today's Visit Cannabis hyperemesis syndrome co-occurrent and due to cannabis abuse Abdominal pain Chest pain Vomiting/Vomiting Blood What to Do Next Instructions from Your Care Team No qualifying data available. Post Acute Orders No qualifying data available. You Need to Schedule the Following Appointments Follow Up with Call Physician Referral When Within 2-4 days Allergies NKA Medications Please ask your primary doctor or pharmacist before taking any other medication not listed, including over the counter drugs, herbal medications, vitamins and or supplements as they may interact withyour home medications. What How Much When Why Instructions Last Dose New prochlorperazine (Compazine use prochlorperazine ) 10 Milligram by mouth Three (3) times a day Cannabis hyperemesis syndrome co-occurrent and due to cannabis abuse Duration: 3 Days Printed Prescription New promethazine (promethazine 25 mg rectal suppository) 1 suppository(ies) in the rectum Every 6 hours as needed for for nausea/vomiting Cannabis hyperemesis syndrome co-occurrent and due to cannabis abuse Printed Prescription Please take this list to your next doctor s visit. Bring all medications you take, including over the counter medications, herbals and other supplements with you to your doctor s visit. Patients and families are reminded to discard old lists and to update any records with all medication providers or retail pharmacies. Medication Leaflets promethazine (oral) (pro METH a zeen) Phenergan What is the most important information I should know about promethazine? Promethazine should not be given to a child younger than 2 years old. Promethazine can cause severebreathing problems or in very young children. What is promethazine? Promethazine is used to treat allergy symptoms such as itching, runny nose, sneezing, itchy or watery eyes, hives, and itchy skin rashes. Promethazine also prevents motion sickness, and treats nausea and vomiting or pain after surgery. It is also used as a sedative or sleep aid. Promethazine is not for use in treating symptoms of asthma, pneumonia, or other lower respiratory tract infections. Promethazine may also be used for purposes not listed in this medication guide. What should I discuss with my healthcare provider before taking promethazine? Promethazine should not be given to a child younger than 2 years old. Promethazine can cause severebreathing problems or in very young children. Carefully follow your doctor's instructions when giving this medicine to a child of any age. You should not take this medicine if you are allergic to promethazine or to similar medicines such as chlorpromazine, fluphenazine, mesoridazine, perphenazine, prochlorperazine, thioridazine, or trifluoperazine. Tell your doctor if you have ever had: asthma, chronic obstructive pulmonary disease (COPD), sleep apnea, or other breathing disorder; a history of seizures; a weak immune system (bone marrow depression); glaucoma; enlarged prostate or problems with urination; stomach ulcer or obstruction; heart disease or high blood pressure; liver disease; or if you have ever had a serious side effect while using promethazine or any other phenothiazine. Tell your doctor if you are or . How should I take promethazine? Follow all directions on your prescription label and read all medication guides or instruction sheets. Your doctor may occasionally change your dose. Use the medicine exactly as directed. Promethazine is often taken at bedtime or before meals. For motion sickness, promethazine is usually started within 1 hour before traveling. When used for surgery, promethazine is usually taken the night before the surgery. How often you take this medicine and the timing of your dose will depend on the condition being treated. Measure liquid medicine with the dosing syringe provided, or with a special dose-measuring spoon ormedicine cup. If you do not have a dose-measuring device, ask your pharmacist for one. If a child is using this medicine, tell your doctor if the child has any changes in weight. Promethazine doses are based on weight in children, and any changes may affect your child's dose. Call your doctor if your symptoms do not improve, or if they get worse while using promethazine. This medicine can cause unusual results with certain medical tests. Tell any doctor who treats you that you are using promethazine. Store at room temperature away from moisture, heat, and light. What happens if I miss a dose? Take the medicine as soon as you can, but skip the missed dose if it is almost time for your next dose. Do not take two doses at one time. What happens if I overdose? Seek emergency medical attention or call the Poison Help line at . Overdose symptoms may include overactive reflexes, loss of coordination, severe drowsiness or weakness, fainting, dilated pupils, weak or shallow breathing, or seizure (convulsions). What should I avoid while taking promethazine? This medicine may impair your thinking or reactions. Be careful if you drive or do anything that requires you to be alert. Avoid getting up too fast from a sitting or lying position, or you may feel dizzy. Get up slowly and steady yourself to prevent a fall. Drinking alcohol can increase certain side effects of promethazine. Avoid exposure to sunlight or tanning beds. Promethazine can make you sunburn more easily. Wear protective clothing and use sunscreen (SPF 30 or higher) when you are outdoors. What are the possible side effects of promethazine? Get emergency medical help if you have signs of an allergic reaction: hives; difficult breathing; swelling of your face, lips, tongue, or throat. Call your doctor at once if you have: severe drowsiness, weak or shallow breathing; a light-headed feeling, like you might pass out; confusion, agitation, hallucinations, nightmares; seizure (convulsions); fast or slow heartbeats; jaundice (yellowing of the skin or eyes); uncontrolled muscle movements in your face (chewing, lip smacking, frowning, tongue movement, blinking or eye movement); easy bruising or bleeding (nosebleeds, bleeding gums); sudden weakness or ill feeling, fever, chills, sore throat, mouth sores, red or swollen gums, trouble swallowing; or severe nervous system reaction--very stiff (rigid) muscles, high fever, sweating, confusion, fast or uneven heartbeats, tremors, feeling like you might pass out. Common side effects may include: drowsiness, dizziness; ringing in your ears; double vision; feeling nervous; dry mouth; or tiredness, sleep problems (insomnia). This is not a complete list of side effects and others may occur. Call your doctor for medical advice about side effects. You may report side effects to FDA at 0-698-ASD-3393. What other drugs will affect promethazine? Using promethazine with other drugs that make you drowsy can worsen this effect. Ask your doctor before using opioid medication, a sleeping pill, a muscle relaxer, or medicine for anxiety or seizures. Other drugs may affect promethazine, including prescription and utfw-ofi-ofasrgc medicines, vitamins, and herbal products. Tell your doctor about all other medicines you use. Where can I get more information? Your doctor or pharmacist can provide more information about promethazine. Remember, keep this and all other medicines out of the reach of children, never share your medicines with others, and use this medication only for the indication prescribed. Every effort has been made to ensure that the information provided by [employer]. ('[employer]') is accurate, up-to-date, and complete, but no guarantee is made to that effect. Drug information contained herein may be time sensitive. [employer] information has been compiled for use by healthcare practitioners and consumers in the [place] and therefore [employer] does not warrant that uses outside of the [place] are appropriate, unless specifically indicated otherwise. [employer] drug information does not endorse drugs, diagnose patients or recommend therapy. [employer] drug information isan informational resource designed to assist licensed healthcare practitioners in caring for their p atients and/or to serve consumers viewing this service as a supplement to, and not a substitute for, the expertise, skill, knowledge and judgment of healthcare practitioners. The absence of a warningfor a given drug or drug combination in no way should be construed to indicate that the drug or drug combination is safe, effective or appropriate for any given patient. [employer] does not assume any responsibility for any aspect of healthcare administered with the aid of information [employer] provides. The information contained herein is not intended to cover all possible uses, directions, precautions, warnings, drug interactions, allergic reactions, or adverse effects. If you have questions about the drugs you are taking, check with your doctor, nurse or pharmacist. Copyright [employer]. Version: 8.01. Revision Date: 08/06/2021. prochlorperazine (oral/injection) (pro klor PER a varsha) What is the most important information I should know about prochlorperazine? You should not use prochlorperazine if you have recently used alcohol, sedatives, tranquilizers, ornarcotic medications. Prochlorperazine is not approved for use by anyone younger than 2 years old or weighing less than 20 pounds. Do not give this medicine to a child before or after a surgery. Prochlorperazine is not approved for use in older adults with dementia-related psychosis. Call your doctor at once if you have uncontrollable movements of your eyes, lips, tongue, face, arms, or legs. These could be early signs of dangerous side effects. What is prochlorperazine? Prochlorperazine is a phenothiazine ([id number]) antipsychotic medicine that is used to treat anxiety or schizophrenia. Prochlorperazine is also used to control severe nausea and vomiting. Prochlorperazine may also be used for purposes not listed in this medication guide. What should I discuss with my healthcare provider before using prochlorperazine? You should not use this medicine if you are allergic to prochlorperazine or other phenothiazines (such as chlorpromazine, fluphenazine, perphenazine, promethazine, thioridazine, or trifluoperazine). Do not use prochlorperazine if you have recently used large amounts of alcohol or medicine that makes you sleepy. Prochlorperazine is not approved for use by anyone younger than 2 years old or weighing less than 20 pounds. Talk with your doctor before giving prochlorperazine to a child or teenager with a fever, flu symptoms, vomiting, or diarrhea. Do not give this medicine to a child before or after a surgery. Prochlorperazine may increase the risk of in older adults with dementia- related psychosis andis not approved for this use. Tell your doctor if you have ever had: heart disease; seizures, or a brain tumor; low white blood cell (WBC) counts; glaucoma; pheochromocytoma (tumor of the adrenal gland); low blood pressure; breast cancer; or chemotherapy. Tell your doctor if you will be exposed to extreme heat or cold, or to insecticide poisons while you are using prochlorperazine. Tell your doctor if you are or you get . Taking antipsychotic medication during the last 3 months of may cause breathing problems, feeding problems, or withdrawal symptoms in the . It may not be safe to breastfeed while using this medicine. Ask your doctor about any risk. How should I use prochlorperazine? Follow all directions on your prescription label and read all medication guides or instruction sheets. Your doctor may occasionally change your dose. Use the medicine exactly as directed. Prochlorperazine oral is taken by mouth. Prochlorperazine doses are based on weight in children. Your child's dose needs may change if the child gains or loses weight. Prochlorperazine injection is injected into a muscle or as an infusion into a vein. A healthcare provider will give you this injection. After receiving a prochlorperazine injection, you may need to remain lying down for at least 30 minutes. You may feel light-headed when you first stand up. If you use prochlorperazine long-term, you may need frequent medical tests. Do not stop using prochlorperazine suddenly after long-term use, or you could have unpleasant symptoms such as nausea, vomiting, dizziness, or tremors. Ask your doctor how to safely stop using this medicine. Store at room temperature away from moisture, heat, and light. What happens if I miss a dose? Use the medicine as soon as you can, but skip the missed dose if it is almost time for your next dose. Do not use two doses at one time. What happens if I overdose? Seek emergency medical attention or call the Poison Help line at . Overdose can cause severe drowsiness, irregular heartbeats, agitation, seizure, or fainting. What should I avoid while using prochlorperazine? Drinking alcohol with this medicine can cause side effects. Avoid driving or hazardous activity until you know how this medicine will affect you. This medicinemay cause dizziness or blurred vision and may impair your reactions. Dizziness can cause falls, accidents, or severe injuries. Avoid getting up too fast from a sitting or lying position, or you may feel dizzy. Prochlorperazine could make you sunburn more easily. Avoid sunlight or tanning beds. Wear protective clothing and use sunscreen (SPF 30 or higher) when you are outdoors. What are the possible side effects of prochlorperazine? Get emergency medical help if you have signs of an allergic reaction: hives; difficult breathing; swelling of your face, lips, tongue, or throat. High doses or long-term use of prochlorperazine can cause a serious movement disorder that may not be reversible. The longer you use prochlorperazine, the more likely you are to develop this disorder, especially if you are a woman or an older adult. Call your doctor at once if you have: uncontrolled muscle movements in your arms and legs, or your face (chewing, lip smacking, frowning,tongue movement, blinking or eye movement); trouble speaking or swallowing, stiffness or muscle spasms in your neck; tremors, or any new or unusual muscle movements you cannot control; extreme drowsiness or light-headed feeling (like you might pass out); little or no urination; agitation, restlessness; severe constipation, stomach pain, bloating; jaundice (yellowing of the skin or eyes); low blood cell counts--fever, chills, sore throat, cough, trouble breathing, mouth sores, skin sores, pale skin, easy bruising or bleeding; lupus-like symptoms--muscle or joint pain, flu symptoms, chest pain, and a rash or patchy skin color that worsens in sunlight; or severe nervous system reaction--very stiff (rigid) muscles, high fever, sweating, confusion, fast or uneven heartbeats. Side effects such as dry mouth, constipation, confusion, and tremors may be more likely in older adults. Common side effects may include: headache, dizziness, drowsiness; dry mouth, stuffy nose; nausea, constipation; increased appetite, weight gain; blurred vision; agitation, feeling jittery, trouble sleeping; skin redness, itching, or rash; missed menstrual periods; or impotence, abnormal ejaculation. This is not a complete list of side effects and others may occur. Call your doctor for medical advice about side effects. You may report side effects to FDA at 4-442-KXB-8874. What other drugs will affect prochlorperazine? Using prochlorperazine with other drugs that make you sleepy or slow your breathing can cause dangerous side effects. Ask your doctor before using opioid medication, a sleeping pill, a muscle relaxer, or medicine for anxiety or seizures. Tell your doctor about all your current medicines. Many drugs can affect prochlorperazine, especially: lithium; propranolol; a diuretic or 'water pill'; a blood thinner (warfarin, Coumadin, Jantoven); or seizure medication. This list is not complete and many other drugs may affect prochlorperazine. This includes prescription and vfys-rlm-wlrqivx medicines, vitamins, and herbal products. Not all possible drug interactions are listed here. Where can I get more information? Your pharmacist can provide more information about oral prochlorperazine. Remember, keep this and all other medicines out of the reach of children, never share your medicines with others, and use this medication only for the indication prescribed. Every effort has been made to ensure that the information provided by [employer]. ('[employer]') is accurate, up-to-date, and complete, but no guarantee is made to that effect. Drug information contained herein may be time sensitive. [employer] information has been compiled for use by healthcare practitioners and consumers in the [place] and therefore [employer] does not warrant that uses outside of the [place] are appropriate, unless specifically indicated otherwise. [employer]'s drug information does not endorse drugs, diagnose patients or recommend therapy. [employer] drug information isan informational resource designed to assist licensed healthcare practitioners in caring for their p atients and/or to serve consumers viewing this service as a supplement to, and not a substitute for, the expertise, skill, knowledge and judgment of healthcare practitioners. The absence of a warningfor a given drug or drug combination in no way should be construed to indicate that the drug or drug combination is safe, effective or appropriate for any given patient. [employer] does not assume any responsibility for any aspect of healthcare administered with the aid of information [employer] provides. The information contained herein is not intended to cover all possible uses, directions, precautions, warnings, drug interactions, allergic reactions, or adverse effects. If you have questions about the drugs you are taking, check with your doctor, nurse or pharmacist. Copyright 4376-7633 [employer]. Version: 12.. Revision Date: 11/03/2019. Education Materials Vomiting (Adult) Vomiting is a common symptom that may be due to different causes. These include gastroenteritis (stomach flu), food poisoning and gastritis. There are other more serious causes of vomiting which may be hard to diagnose early in the illness. Therefore, it is important to watch for the warning signs listed below. The main danger from repeated vomiting is dehydration. This is due to excess loss of water and minerals from the body. When this occurs, your body fluids must be replaced. Home care If symptoms are severe, rest at home for the next 24 hours. Because your symptoms may be from an infection, wash your hands often and well. If soap and water are not available, use alcohol-based film crew member to keep from spreading the infection to others. Wash your hands for at least 20 seconds. Humming the happy birthday song twice while you wash is aneasy way to make sure you've washed for 20 seconds. Wash your hands after using the toilet, before and after preparing food, before eating food, after changing a diaper, cleaning a wound, caring for a sick person, and blowing your nose, coughing, or sneezing. You should also wash your hands after caring for someone who is sick, touching pet food, ortreats, and touching an animal, or animal waste. You may use acetaminophen or NSAID medicines like ibuprofen or naproxen to control fever, unless another medicine was prescribed. If you have chronic liver or kidney disease or ever had a stomach ulcer or gastrointestinal bleeding, talk with your doctor before using these medicines. Aspirin should never be used in anyone under 18 years of age who is ill with a fever. It may cause severe liver damage. Don't use NSAID medicines if you are already taking one for another condition (like arthritis) or are on aspirin (such as for heart disease, or after a stroke) Don't use tobacco and or drink alcohol, which may worsen your symptoms. If medicines for vomiting were prescribed, take as directed. Once vomiting stops, then follow these guidelines: During the first 12 to 24 hours follow the diet below: Fruit juices. Apple, grape juice, clear fruit drinks, and electrolyte replacement drinks. Beverages. Soft drinks without caffeine; mineral water (plain or flavored), decaffeinated tea and coffee. Soups. Clear broth and bouillon Desserts. Plain gelatin, ice pops, and fruit juice bars. As you feel better, you may add 6 to 8 ounces of yogurt per day. During the next 24 hours you may add the following to the above: Hot cereal, plain toast, bread, rolls, crackers Plain noodles, rice, mashed potatoes, chicken noodle or rice soup Unsweetened canned fruit such as applesauce, bananas (avoid pineapple and citrus) Limit caffeine and chocolate. No spices or seasonings except salt. During the next 24 hours: Gradually resume a normal diet, as you feel better and your symptoms lessen. Follow-up care Follow up with your healthcare provider, or as advised. When to seek medical advice Call your healthcare provider right away if any of these occur: Constant right-sided lower belly pain or increasing general belly pain Continued vomiting (unable to keep liquids down) for 24 hours Vomiting blood or coffee grounds Swollen belly Frequent diarrhea (more than 5 times a day); blood (red or black color) or mucus in diarrhea Reduced urine output or extreme thirst Weakness, dizziness or fainting Unusually drowsy or confused Fever of 100.4 F (38 C) oral or higher, or as directed Yellow color of the eyes or skin [id number] [employer]. [address] [place] [address]. All rights reserved. This information is not intended as a substitute for professional medical care. Always follow yourhealthcare professional's instructions. Marijuana Abuse Marijuana is the most widely used illegal drug in the [place]. It is called by various names such as pot, weed, blunts, grass, reefer, ganja, hash, or hashish. It is usually smoked but can be mixed with foods, or brewed as a tea. It is sometimes sold with PCP (dylan dust) or amphetamine mixedin it. These drugs can cause other harmful side effects. Marijuana can cause the following effects: Changes in mood (stimulated, happy, drowsy, depressed, paranoid) Hallucinations Increased heart rate and blood pressure Increased appetite Time distortion, difficulty concentrating, impaired memory Lung damage (similar to cigarettes with chronic cough, wheezing, frequent colds, and bronchitis) Decreased sperm count Dizziness, vertigo You can become psychologically dependent on marijuana. That means the craving to use the drug is emotional or psychological rather than due to physical withdrawal. Is marijuana running your life? Here are some of the signs: Relying on marijuana to feel good, forget problems, deal with stress or to relax Wanting to be alone most of the time or only with others who use drugs Losing interest in things that used to be important Changes in school or job performance or attendance Spending a lot of time thinking about how to get marijuana Stealing or selling your things so you can buy marijuana Unable to stop using even though you may want to quit Increasing anxiety, anger, or depression Sleeping too much, changes in eating habits (weight loss or gain) Needing to use more to get the same effect Home care The following suggestions will help you manage marijuana abuse: Once you have become addicted to any drug, quitting is hard to do. Most people find they can't quitwithout help. So, don t try to do this alone. Talk to someone you trust who can support you. Seek professional help. Avoid people and places where drugs are used. That only increases the temptation to use. Follow-up care Follow up with your healthcare provider, or as advised. For more information or a referral to a treatment center in your area, contact: Your local mental health center or the National Alcohol and Substance Abuse Information Center (459)-422-9789 www.addictioncareoptions.com National [place] on Alcoholism and Drug Dependence 319-104-7582 www.ncadd.org Marijuana Anonymous 149-181-2790 www.marijuana-anonymous.org When to seek medical advice Call your healthcare provider right away if any of these occur: You feel extreme depression, fear, anxiety, or anger toward yourself or others. You feel out of control. You feel that you may try to harm yourself or another. You experience chest pain or shortness of breath. [phone] [employer]. [address] [place] [address], [place] [address]. All rights reserved. This information is not intended as a substitute for professional medical care. Always follow yourhealthcare professional's instructions. Additional Information VACCINATE! IT SAVES LIVES! Members of the community who have not yet received the COVID-19 vaccine and would like to receive it can visit one of [facility] vaccine clinics. There are many vaccine clinic locations within the [facility]. For locations and available times, please visit www.gettheshot.coronavirus.[place].gov/. It is important to note that some COVID mobile vaccine clinics are held outdoors and may be canceled in rainy or stormy conditions. To learn more about pediatric vaccinations (ages 5-11), we invite you to visit the [facility] webpage. https://www.[employer].org/pages/5332-Kiipm-Sokcxflydbo-Wngppitilu-Pubvj-Zrc stions.htmlTo learn more about the COVID-19 vaccine, we invite you to visit the CDC website for a list of frequently asked questions. https://www.cdc.gov/coronavirus/2019-ncov/vaccines/faq.html [employer] Patient Portal Access Instructions: Stay connected with your healthcare team and access your personal medical information anytime with the [facility] Patient Portal. If you would like a full copy of your medical records please contact the [facility] Medical Records Department Wednesday through Wednesday between 8a.m. and 4:30p.m. Please follow the directions below to access the portal: 1.Access the email account you provided upon registration to the hospital.2.Look for an invitation email from [facility].3.Open the email and access the invitation link: Accept Invitation to [facility].Fill in the required joy to create your account. Sign into [email or web address] with your username and password that you created in the above steps to stay up to date. You can then view a summary of results, a summary of your visits, and the ability to download your summaries to your computer or send the information securely to a physician. Remember that your healthcare information is confidential, so carefully consider who you will allow to register on the [facility] Patient Portal for access to your information. You can also access the [employer] Patient Portal on the [employer] della. Simply click on Health Records under [employer] and then click on the [employer] logo. HOW TO SAFELY DISPOSE OF PRESCRIPTION MEDICATIONS Please use one of the following methods to safely dispose of your unused medications. 1.Use a drug disposal kit: the drug disposal pouch allows you to safely discard your old and unuseddrugs. Ask your nurse to give you one when you are discharged.2.Visit a local take-back location: Many local pharmacies and police departments have programs that collect old and unwanted prescriptiondrugs. Call your local pharmacy or go to http://GuidePal.[facility]/4V6Pq9z to find one close to you.3.Make use of household items: Use cat litter or old coffee grounds to dispose medications if other options arenot available. Mix your drugs with these household products, seal them in an airtight container andthrow it into the garbage. Call [facility]: [phone] to be sure your drugs can be disposed of in this way. Some medicines may require a different approach.4.Never flush your medications down the toilet. IF YOU HAVE BEEN PRESCRIBED AN OPIOIDS FOR PAIN If you have been prescribed an opioid (such as hydrocodone, oxycodone or morphine), it is critical to understand the possible side effects and risks of opioid pain medications. Even when taken as directed, opioids can have several side effects including: Tolerance, meaning you might need to take more of a medication for the same pain relief. Nausea, vomiting and/or constipation. Sleepiness, dizziness, dry mouth, confusion, depression or itching. Physical dependence, meaning you have withdrawal symptoms when a medication is stopped ? this can develop within a few days. KNOW YOUR RESPONSIBILITIES It is important to know exactly how much and how often to take the opioid pain medications you are prescribed. Never take opioids in higher amounts or more often than prescribed. Do not combine opioids with alcohol or other drugs that cause drowsiness, such as benzodiazepines, also known as benzos,including diazepam and alprazolam, muscle relaxants or sleep aids. Never sell or share prescriptionopioids. This is illegal. Store opioids in a secure place and out of reach of others (including children, family, friends and visitors). The last page(s) of this document has been signed and retained as a CHART COPY Signatures Patient Education Materials Vomiting (Adult) Marijuana Abuse Medication Leaflets promethazine (oral), prochlorperazine (oral/injection) My discharge plan and instructions have been reviewed and explained to me and I,GHISLAINE GIVENS understand my current condition and have read and understand these discharge instructions. I have received a written copy of the plan/instructions. If I have questions, I am aware that I should contact my doctor. 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 Multiplanar reformatted images are provided for review. Automated exposure control, iterative reconstruction, and/or weight based adjustment of the mA/kV was utilized to reduce the radiation dose to as low as reasonably achievable. COMPARISON: None. HISTORY: ORDERING SYSTEM PROVIDED HISTORY: Reason for Exam: abdominal pain FINDINGS: The heart is normal in size. No pericardial thickening or effusion. Scattered atelectasis. The aorta is nonaneurysmal. More than expected khurram hepatis, aortocaval and duodenum caval adenopathy. Prominent iliac chain adenopathy, greater on the right. These are nonspecific. The gallbladder, spleen, pancreas, and bilateral adrenal glands are unremarkable. The liver is borderline enlarged. The common bile duct appears to be mildly dilated. The kidneys are symmetric in size and attenuation. No hydronephrosis or renal calculi. The bladder is unremarkable. The uterus is unremarkable. Hydrosalpinx is noted on the left. Simple appearing left adnexal cysts measuring approximately 2.5 cm. No pneumoperitoneum or free fluid. The large and small bowel are normal in caliber. The appendix is unremarkable. Small sclerotic foci in the right iliac bone and left femoral proximal shaft, likely bone islands. No acute osseous abnormalities. IMPRESSION: Left hydrosalpinx and could possibly represent an infectious etiology. Follow-up ultrasound is advised. Mildly dilated common bile duct with adjacent more than expected khurram hepatis adenopathy which may be reactive. Follow-up right upper quadrant ultrasound is advised for further evaluation. I have personally reviewed the images of this examination and agree with the resident's findings and interpretation. Interpreted by: Krishna Ramírez MD Preliminary Report By: Josh West Electronically signed By Krishna Ramírez MD Dictated Date: 01/10/2023 4:35:53 PM Prelim Date: 01/10/2023 4:57:49 PM Sign Date: 01/10/2023 4:59:31 PM [facility] Note ORIGINAL EXAMINATION: CT OF THE ABDOMEN AND PELVIS WITH CONTRAST 01/10/2023 3:43 pm TECHNIQUE: CT of the abdomen and pelvis was performed with the administration of intravenous contrast. Multiplanar reformatted images are provided for review. Automated exposure control, iterative reconstruction, and/or weight based adjustment of the mA/kV was utilized to reduce the radiation dose to as low as reasonably achievable. COMPARISON: None. HISTORY: ORDERING SYSTEM PROVIDED HISTORY: Reason for Exam: abdominal pain FINDINGS: The heart is normal in size. No pericardial thickening or effusion. Scattered atelectasis. The aorta is nonaneurysmal. More than expected khurram hepatis, aortocaval and duodenum caval adenopathy. Prominent iliac chain adenopathy, greater on the right. These are nonspecific. The gallbladder, spleen, pancreas, and bilateral adrenal glands are unremarkable. The liver is borderline enlarged. The common bile duct appears to be mildly dilated. The kidneys are symmetric in size and attenuation. No hydronephrosis or renal calculi. The bladder is unremarkable. The uterus is unremarkable. Hydrosalpinx is noted on the left. Simple appearing left adnexal cysts measuring approximately 2.5 cm. No pneumoperitoneum or free fluid. The large and small bowel are normal in caliber. The appendix is unremarkable. Small sclerotic foci in the right iliac bone and left femoral proximal shaft, likely bone islands. No acute osseous abnormalities. IMPRESSION: Left hydrosalpinx and could possibly represent an infectious etiology. Follow-up ultrasound is advised. Mildly dilated common bile duct with adjacent more than expected khurram hepatis adenopathy which may be reactive. Follow-up right upper quadrant ultrasound is advised for further evaluation. I have personally reviewed the images of this examination and agree with the resident's findings and interpretation. Interpreted by: Krishna Ramírez MD Preliminary Report By: Josh eWst Electronically signed By Krishna Ramírez MD Dictated Date: 01/10/2023 4:35:53 PM Prelim Date: 01/10/2023 4:57:49 PM Sign Date: 01/10/2023 4:59:31 PM Ordering Provider: ESSIE [facility]07-02-2023 Evaluation + Plan note Diagnostic Tests Pending * Urine Culture 01/10/23 [facility] 06-29-2023 Discharge summary Author Poli [facility] January 07, 2023 2:08pm Note Date/Time January 07, 2023 8:55 am [facility] Medical Records Department [address] [place] [address] [place] [address] Emergency Department Summary 01/07/23 MR#: [id number] Acct: [id number] Name: GHISLAINE GIVENS Rep #:[id number] : 1990 32 From: Poli Farah PCP: [facility] at[facility]:REG ER Location: ED HPI HPI - GI History of Present Illness Chief Complaint: Abd Pain Informant: patient and spouse/S.O. Narrative Narrative: Nausea vomiting since yesterday afternoon after smoking marijuana. Dry heaving. No diarrhea. No hematemesis. Reports does not typically use marijuana. Last menstrual period a week ago. No urinary symptoms. No abdominal surgeries. Denies any allergies. History of diabetes states sugars usually 250. She is oninsulin. Prior similar symptoms: No PFSH PFSH Medical History Anxiety Asthma Constipation Depression Diabetes Diabetes mellitus with diabetic polyneuropathy Hypertension Type 2 diabetes mellitus with foot ulcer Home Medications albuterol sulfate 90 mcg/actuation aerosol inhaler (Ventolin HFA) 1 inh inhalation Q4H SOB 04/06/22 [History Last Taken 06/24/22] metformin 500 mg tablet 1,000 mg PO BID DM 06/24/22 [History Last Taken 06/24/22] insulin glargine 100 unit/mL (3 mL) subcutaneous pen (Lantus Solostar U-100 Insulin) 15 unit subcut BID diabetes 08/12/22 [History Last Taken Unknown] cephalexin 500 mg capsule 500 mg PO TID 7 days #21 caps 11/19/22 [Rx Last Taken Unknown] sulfamethoxazole 800 mg-trimethoprim 160 mg tablet 1 tab PO BID 11/19/22 [History Last Taken Unknown] sulfamethoxazole 800 mg-trimethoprim 160 mg tablet (Bactrim DS) 1 tab PO BID 2 days #4 tabs 11/19/22 [Rx Last Taken Unknown] hyoscyamine sulfate 0.125 mg sublingual tablet (Levsin/SL) 0.125 mg PO TID PRN abdominal pain #10 tabs 01/07/23 [Rx Last Taken Unknown] ondansetron 4 mg disintegrating tablet 4 mg PO Q8H PRN PRN Nausea #10 tabs 01/07/23 [Rx Last Taken Unknown] Allergy/AdvReac Type Severity Reaction Status Date / Time No Known Allergies Allergy Verified 11/19/22 09:24 Family History Other Bleeding disorder Cancer Diabetes Hypertension Surgical History Hx of foot surgery Social History Smoking Status: Current some day smoker tobacco type: cigarettes alcohol intake: never substance use type: does not use what type of physical activity do you participate in: none ROS ROS ED Constitutional Constitutional ED: Denies chills, fever(s) or sweats Eyes Eyes: Denies change in vision ENT ENT ED: Denies dysphagia or sore throat Cardiovascular Cardiovascular: Denies chest pain, leg edema, palpitations or racing heartbeat Respiratory/Chest Respiratory/Chest: Denies cough, dyspnea or dyspnea on exertion Gastrointestinal Gastrointestinal: Reports nausea and vomiting; Denies abdominal pain or diarrhea Genitourinary Genitourinary ED: Denies dysuria, hematuria or urinary frequency Musculoskeletal Musculoskeletal: Denies back pain, extremity pain or neck pain Integumentary Denies rash or wounds Neurologic Neurologic: Denies headache(s), paresthesias or weakness EXAM Physical Exam Const Vital Signs: 01/07/23 08:38 01/07/23 12:01 Temperature 98.7 F Temperature Source Temporal Pulse Rate 82 Respiratory Rate 16 18 Blood Pressure 161/105 H 154/99 H Blood Pressure Mean 123 117 Pulse Ox 99 Oxygen Delivery Method Room Air Positive well nourished and well developed Constitutional Narrative: Dry heaving in the room. Nontoxic no respiratory distress General Appearance ED: well developed HEENT Reports moist mucous membranes normocephalic and atraumatic Eyes PERRL, EOMs intact bilaterally and conjunctivae normal General Eye ED: Yes normal appearance of both eyes Neck no lymphadenopathy and supple General: Negative for tenderness Chest Wall Chest: Negative for tenderness Resp normal respiratory effort and normal air movement Effort and Inspection: symmetric chest movement; Negative for respiratory distress Cardio regular rate, regular rhythm and no murmurs Peripheral Pulses: pulses 2+ throughout GI normal to inspection, nondistended, normoactive bowel sounds and non-tender GI Narrative: Negative Morris's or McBurney's tenderness. Palpation: Negative for guarding or rebound tenderness present Back/Spine no CVA tenderness and no thoracic nor lumbar tenderness Extremity normal to inspection General Extremety ED: Negative for edema or tenderness General Extremity: Negative for edema Neuro oriented x3 and no sensory deficits noted Sensorium / Orientation: awake and alert Skin no rashes or lesions noted and no wounds MDM MDM MDM Narrative Medical decision making narrative: Interventions / MDM: Differential diagnosis: Cannabis hyperemesis syndrome, nausea and vomiting,DKA Diagnosis considered but do not suspect: No clinical bowel obstruction My EKG interpretation: N/A Imaging independently reviewed and interpreted by myself: N/A External documents reviewed: N/A Test considered but not ordered:N/A ED course: Patient reports THC use yesterday increasing vomiting today with retching. IV established, blood glucose was 206. Initially given Pepcid, Levsin and Zofran along with IV fluids. Labs are all stable her creatinine 1.12BUN 10. Glucose is 202 gap is 9. No DKA on lab. hCG negative. Talk screen noted THC and ecstasy. Re-evaluation: Recurrent vomiting symptoms, she is treated with Haldol IV, additional IV fluids. Further discussion with significant other she uses THC onmore occasions as long as he is known her. She denies having this episode in the past. Additional IV Reglan and capsaicin cream provided with improving symptoms. Consider admission for intractable vomiting, discussed p.o. challengehowever patient declines this. She does not want to be admitted. She is provided prescription of Levsin, Zofran and sent home with a capsaicin cream. Outpatient follow-up with return precautions. Disposition discussed with patient/family/significant other: Patient and significant other Case discussed with consulting clinician: N/A This note was generated with onlinetours dictation software. It may contain incorrectwords, spelling, and punctuation that were not noted in checking the note beforesigning. Lab Data Attestation: I reviewed the patient's lab results. Labs: Laboratory Results - last 24 hr 01/07/23 01/07/23 01/07/23 09:10 09:16 10:35 WBC 9.0 RBC 4.92 Hgb 12.7 Hct 39.2 MCV 79.7 L MCH 25.8 L MCHC 32.4 RDW Std Deviation 38.9 RDW Coeff of John 13.5 Plt Count 380 MPV 9.1 Immature Gran % (Auto) 1.000 H Neut % (Auto) 53.2 Lymph % (Auto) 38.5 Bacon % (Auto) 5.9 Eos % (Auto) 1.0 Baso % (Auto) 0.4 Absolute Neuts (auto) 4.8 Absolute Lymphs (auto) 3.48 Nucleated RBC % 0 Sodium 135 L Potassium 3.8 Chloride 102 Carbon Dioxide 24.0 Anion Gap 9 BUN 10 Creatinine 1.12 H Estim Creat Clear Calc 68.76 Est GFR (MDRD) Af Amer 73 Est GFR (MDRD) Non-Af 60 BUN/Creatinine Ratio 8.9 L Glucose 202 H Calcium 9.0 Urine Test Negative Urine Opiates Screen NEGATIVE Urine Methadone Screen NEGATIVE Ur Barbiturates Screen NEGATIVE Ur Phencyclidine Scrn NEGATIVE Ur Amphetamines Screen NEGATIVE MDMA (Ecstasy) Screen POSITIVE H U Benzodiazepines Scrn NEGATIVE Urine Cocaine Screen NEGATIVE U Cannabinoids Screen POSITIVE H Ur Drug Screen Comment POC Glucose 206 H Discharge Plan Triage Chief Complaint: Abd Pain ED Provider: Poli Barfield Dx/Rx/DC Orders Clinical Impression: Cannabis hyperemesis syndrome concurrent with and due to cannabis abuse, Diabetes, Nausea and vomiting Instructions: Cannabinoid Hyperemesis Syndrome, Diabetes: Caring for Your Body Prescriptions: New hyoscyamine sulfate [Levsin/SL] 0.125 mg tablet, sublingual 0.125 mg PO TID PRN (Reason: abdominal pain) Qty: 10 0RF ondansetron [ondansetron] 4 mg tablet,disintegrating 4 mg PO Q8H PRN PRN (Reason: Nausea) Qty: 10 0RF No Action albuterol sulfate [Ventolin HFA] 90 mcg/actuation HFA aerosol inhaler 1 inh INHALATION Q4H metformin 500 mg tablet 1,000 mg PO BID insulin glargine [Lantus Solostar U-100 Insulin] 100 unit/mL (3 mL) insulin pen 15 unit SUBCUT BID Patient Comments: inject 10 units subcutaneous twice daily sulfamethoxazole-trimethoprim 800-160 mg tablet 1 tab PO BID sulfamethoxazole-trimethoprim [Bactrim DS] 800-160 mg tablet 1 tab PO BID 2 Days Qty: 4 0RF cephalexin 500 mg capsule 500 mg PO TID 7 Days Qty: 21 0RF [facility] - 3-5 Days Activity Restrictions/Additional Instructions: Avoid marijuana use. Use the capsaicin cream every 6 hours as needed. Medication prescribed to use as needed. Continue oral fluids at home for hydration. Follow- up with your doctor. Disposition Disposition: Home, Self Care What to do if you have Problems For any increased pain, shortness of breath, bleeding, nausea or vomiting, chestpain, or any unexpected problems, contact your Primary Care Provider. Call [facility] ([phone]) or report to the closest Emergency Room. Call 911 if necessary. 01/07/23 1408 <Electronically signed by Poli Farah> Cosigner Signature (if applicable): CC: [facility] ~ Signed [facility] Work Phone: [phone]) 258-881405-09-2023 History of Present illness Narrative* Andres Galaviz APRN.AVIONIC TECHNICIAN - 11/17/2022 8:45 AM EDT Images from the original note were not included. Subjective HPI Nontoxic-appearing female presents urgent care chief complaint sore on face. Duration of symptoms 3days. Associated symptoms redness swelling and pain. Patient states history of abscesses on her face this feels similar. Has had MRSA in the past. Has not used any OTC medications. Denies any significant swelling. Denies any visual changes. No eye pain. No pain with EOMs. Denies any fever body aches chills productive cough chest pain shortness of breath pleuritic pain hemoptysis nausea vomiting abdominal pain change in bowel or bladder habits. Past medical history prescription medication use and allergies reviewed. Denies chance of . Is not breast-feeding. .Patient presents with: Derm Problem: sore on bridge of nose x 3 days PAST MEDICAL HISTORY Diagnosis Date Bipolar 1 disorder (HCC) 2007 Depression Elevated BP 04/28/2013 Insomnia PAST SURGICAL HISTORY Procedure Laterality Date NONE ALLERGIES Patient has no known allergies. MEDICATIONS albuterol HFA (PROAIR HFA) 90 mcg/actuation inhaler Inhale 2 Puffs as instructed every 4 hours as needed. metFORMIN (GLUCOPHAGE) 500 mg tablet One pill by mouth daily w/ breakfast X 1 week; then increase to twice daily w/ meals. LANTUS SOLOSTAR U-100 INSULIN 100 unit/mL (3 mL) ondansetron orally disintegrating (ZOFRAN ODT) 4 mg disintegrating tablet Take 4 mg by mouth every 6 hours as needed. (Patient not taking: Reported on 03/23/2022) polyethylene glycol 3350 (MIRALAX, GLYCOLAX) 17 gram/dose powder Take 17 g by mouth once daily. Dissolve dose in 4 - 8 ounces of liquid and take as directed. (Patient not taking: Reported on 03/23/2022) blood sugar diagnostic (FREESTYLE LITE STRIPS) test strip Test blood sugar(s) 1 times daily. Dx: 250.02. Insulin: No (Patient not taking: Reported on 11/16/2018 ) Lancets (FREESTYLE LANCETS) lancets Test blood sugar(s) 1 daily. Dx: 250.02. Insulin: No (Patient not taking: Reported on 11/16/2018 ) FAMILY HISTORY Problem Relation Age of Onset Diabetes Mother Hypertension Mother Heart Maternal Grandmother Heart Maternal Grandfather other (bipolar [Other]) Mother Heart Paternal Grandmother Hypertension Paternal Grandmother Diabetes Paternal Grandmother Diabetes Paternal Aunt Cancer Mother Lung Arthritis Paternal Aunt Social History Tobacco Use Smoking status: Every Day Packs/day: 0.50 Years: 3.00 Pack years: 1.50 Types: Cigarettes Smokeless tobacco: Never Substance Use Topics Alcohol use: Yes Comment: Seldom Drug use: No BP 120/72 Pulse 108 Temp 36.4 C (97.5 F) Resp 16 Wt 110.2 kg (243 lb) [facility] 05/18/2021 SpO2 97% BMI 39.22 kg/m Hr 96 Review of Systems Constitutional: Negative for chills, fever and malaise/fatigue. HENT: Negative for congestion, ear discharge, ear pain, sinus pain and sore throat. Eyes: Negative for blurred vision, double vision, photophobia, pain, discharge and redness. Respiratory: Negative for cough, hemoptysis, sputum production, shortness of breath, wheezing and stridor. Cardiovascular: Negative for chest pain. Gastrointestinal: Negative for abdominal pain, diarrhea, nausea and vomiting. Musculoskeletal: Negative for myalgias. Skin: Negative for itching and rash. Neurological: Negative for dizziness and headaches. Objective Physical Exam Constitutional: General: She is not in acute distress. Appearance: She is not diaphoretic. HENT: Head: Normocephalic. Comments: A 1 cm x 1 cm area of induration noted. Small pustule in center of induration noted. No fluctuance. No preseptal swelling or erythema. No remote redness. No drainage. No pain with EOMs. Mouth/Throat: Mouth: Mucous membranes are moist. Pharynx: Oropharynx is clear. No oropharyngeal exudate or posterior oropharyngeal erythema. Eyes: Conjunctiva/sclera: Conjunctivae normal. Pupils: Pupils are equal, round, and reactive to light. Cardiovascular: Rate and Rhythm: Normal rate and regular rhythm. Heart sounds: Normal heart sounds. Pulmonary: Effort: Pulmonary effort is normal. No tachypnea, accessory muscle usage or respiratory distress. Breath sounds: Normal breath sounds. No stridor. No wheezing, rhonchi or rales. Abdominal: Palpations: Abdomen is soft. Tenderness: There is no abdominal tenderness. There is no guarding or rebound. Musculoskeletal: Cervical back: Normal range of motion and neck supple. No rigidity or tenderness. Lymphadenopathy: Cervical: No cervical adenopathy. Skin: General: Skin is warm and dry. Neurological: Mental Status: She is alert and oriented to person, place, and time. ASSESSMENT/PLAN: 1. Facial infection - ICD9: 136.8, ICD10: L08.9 Diagnosed with facial infection. We will treat with Bactrim due to history of MRSA. Will use mupirocin as prescribed. Follow-up with PCP 2 to 3 days reevaluation. Patient was educated on supportive therapies. Patient was instructed to immediately proceed to emergency room for any new, worsening, or symptoms lasting longer than anticipated. The patient's clinical presentation is otherwise unremarkable at this time. Based on exam and clinical finding, the patient is stable for discharge. Plan of care was discussed with patient. Patient verbalizes understanding and agrees to plan of care. This note was generated using [employer]lin[employer] software. It may contain errors in wording, punctuation, or spelling. Andres Galaviz APRN.SUZANNE documented in this encounterChildren'[facility]04-03-2023 Miscellaneous Notes* Telephone Encounter - Romana Garcia LPN - 10/12/2022 8:06 AM EDT Spoke with pt and information listed below given. Pt verbalizes understanding. Romana Garcia LPN * Telephone Encounter - Brea Guevara LPN - 10/11/2022 12:30 PM EDT Left message to return call * Telephone Encounter - MIGULE A Goldman - 10/11/2022 9:29 AM EDT Please call patient know that wound culture revealed MRSA. She needs to continue doxycycline and Keflex as prescribed. Follow-up with PCP for wound recheck this week. Go to ER if symptoms worsen. documented in this encounterChildren'S [facility]03-30-2023 History of Present illness Narrative* Shamika Goins PA-C - 10/08/2022 9:08 AM EDT Images from the original note were not included. This note was created using [employer]. Subjective Ghislaine Givens is a 32 year old female. HPI Presents with swelling on the right side of her face for 2 days. She states she had a pimple about a month ago that went away but 2 days ago started to swell in the same spot. She has a history of MRSA. 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 She is an uncontrolled diabetic. Last A1c was 12 in our records. No fever. No drainage out of her face. She is alsonoticed she has had a blister on her fourth toe on the right foot for 2 weeks. Its been warm and red the past day. She has had some drainage. She states she does have neuropathy. Review of Systems HENT: Positive for facial swelling. Musculoskeletal: Right fourth toe blister All other systems reviewed and are negative. PAST MEDICAL HISTORY Diagnosis Date Bipolar 1 disorder (HCC) 2007 Depression Elevated BP 04/28/2013 Insomnia Current Outpatient Medications Medication Sig Dispense Refill albuterol HFA (PROAIR HFA) 90 mcg/actuation inhaler Inhale 2 Puffs as instructed every 4 hours as needed. 18 g 0 metFORMIN (GLUCOPHAGE) 500 mg tablet One pill by mouth daily w/ breakfast X 1 week; then increase to twice daily w/ meals. 60 tablet 3 doxycycline (VIBRA-TABS) 100 mg tablet Take 1 tablet by mouth twice daily for 7 days. 14 tablet 0 cephALEXin (KEFLEX) 500 mg capsule Take 1 capsule by mouth three times daily for 7 days. 21 capsule0 ondansetron orally disintegrating (ZOFRAN ODT) 4 mg disintegrating tablet Take 4 mg by mouth every 6 hours as needed. (Patient not taking: Reported on 03/23/2022) polyethylene glycol 3350 (MIRALAX, GLYCOLAX) 17 gram/dose powder Take 17 g by mouth once daily. Dissolve dose in 4 - 8 ounces of liquid and take as directed. (Patient not taking: Reported on 03/23/2022) 116 g 0 blood sugar diagnostic (FREESTYLE LITE STRIPS) test strip Test blood sugar(s) 1 times daily. Dx: 250.02. Insulin: No (Patient not taking: Reported on 11/16/2018 ) 50 Strip 0 Lancets (FREESTYLE LANCETS) lancets Test blood sugar(s) 1 daily. Dx: 250.02. Insulin: No (Patient not taking: Reported on 11/16/2018 ) 100 Each 11 No current facility-administered medications for this visit. PAST SURGICAL HISTORY Procedure Laterality Date NONE FAMILY HISTORY Problem Relation Age of Onset Diabetes Mother Hypertension Mother Heart Maternal Grandmother Heart Maternal Grandfather other (bipolar [Other]) Mother Heart Paternal Grandmother Hypertension Paternal Grandmother Diabetes Paternal Grandmother Diabetes Paternal Aunt Cancer Mother Lung Arthritis Paternal Aunt Social History Tobacco Use Smoking status: Every Day Packs/day: 0.50 Years: 3.00 Pack years: 1.50 Types: Cigarettes Smokeless tobacco: Never Substance Use Topics Alcohol use: Yes Comment: Seldom Drug use: No Objective BP 112/82 Pulse 94 Temp 36.1 C (97 F) (Tympanic) Resp 16 Wt 109.1 kg (240 lb 9.6 oz) LMP 05/18/2021 SpO2 100% BMI 38.83 kg/m Physical Exam Vitals reviewed. Constitutional: Appearance: Normal appearance. HENT: Head: Atraumatic. Comments: Patient has erythema with some mild swelling and induration to the right face next to thenose. No drainage . No fluctuance. Feet: Comments: Right fifth toe surgically absent. The fourth toe has an open wound with drainage and erythema about the distal phalanx. No lymphangitic streaking. Neurological: Mental Status: She is alert. Assessment and Plan ASSESSMENT/PLAN: 1. Toe infection - ICD9: 686.9, ICD10: L08.9 (primary diagnosis) Prescription for doxycycline and Keflex. Patient had Keflex listed as an allergy from 2013 however was prescribed it in 2021 and did not have any reaction, has tolerated it fine. Recommend she call her office technology instructor today to be seen. Likely MRSA with her history, wound culture obtained. - ABSCESS AND WOUND CULTURE WITH GRAM STAIN 2. Facial infection - ICD9: 136.8, ICD10: L08.9 -We will double cover with doxycycline and Keflex. History of MRSA. Discussed red flags to be seen in the hospital. Patient agreeable. 3. History of MRSA infection - ICD9: V12.04, ICD10: Z86.14 Shamika Goins PA-C documented in this encounterChildren'S [facility]02-04-[address] Villatoro [facility] August 15, 2022 11:44am Note Date/Time August 15, 2022 1 1:38am [facility] Medical Records Department [address] [place] [address] Instructions for Home/Discharge Instructions 08/15/22 1132 MR#: [id number] Acct: [id number] Name: GHISLAINE GIVENS Rep #:[id number] : 1990 32 From: Lexus Villatoro MD PCP: Dr. Sophy Gibbons Status:ADM IN Discharge Instructions Diet Discharge Diet: - (Consistent carbohydrate diet) Activity Discharge Activity: Return to Normal Activity Follow Up Care Test Results: Test results from this visit will be discussed in further detail at your follow- up appointment, if applicable. Discharge Plan Admission Admit Date/Time: 08/12/22 20:05 Primary Reason for Your Visit: High heart rate and high blood glucose Attending Provider: Lexus Villatoro Primary Care Provider: Sophy Gibbons Consulting Providers: Valencia Urbina Instructions Patient Instructions: ED Pyelonephritis, Female (Adult) Additional Instructions / Restrictions: DISCHARGE INSTRUCTIONS PLEASE READ *Please take this with you to your next doctors appointment* ?You have an infection in your kidney and will need to continue a course of antibiotics. You will take ciprofloxacin 500 mg twice daily for 5 more days. This will be sent to your preferred pharmacy, [facility] ?Please continue all other home medications -Please call your primary care provider's office upon discharge to schedule a hospital follow up within 1 week. -For any concerning signs or symptoms please call 911 or proceed to the nearest emergency department Discharge Orders/Prescriptions Prescriptions: New ciprofloxacin HCl 500 mg tablet 500 mg PO Q12H 5 Days Qty: 10 0RF Continued albuterol sulfate [Ventolin HFA] 90 mcg/actuation HFA aerosol inhaler 1 inh INHALATION Q4H docusate sodium [Dulcolax Stool Softener (dss)] 100 mg capsule 100 mg PO BID PRN (Reason: stool) metformin 500 mg tablet 1,000 mg PO BID insulin glargine [Lantus Solostar U-100 Insulin] 100 unit/mL (3 mL) insulin pen 15 unit SUBCUT BID Label Comments: inject 10 units subcutaneous twice daily Referrals / Follow Up: Startzman,Magness [Primary Care Provider] - Within 1 Week Disposition Disposition (needs filled in before D/C Order can be placed): Home, Self Care 08/15/22 1144<Electronically signed by Lexus Villatoro MD>Lexus Villatoro MD CC: Dr. Valencia Urbina MD; Dr. Sophy Gibbons ~ Signed [facility] Work Phone: 1(901) 952-488402-03-[address]o [facility] August 14, 2022 8:50am Note Date/Time August 14, 2022 8 :50am [facility] Medical Records Department [address] [place] [address] Progress Note - Hospitalist 08/14/22 0846 MR#: [id number] Acct: [id number] Name: GHISLAINE GIVENS Rep #:[id number] : 1990 32 From: Lexus Villatoro MD PCP: Dr. Sophy Gibbons Status:ADM IN Location: [place] [address] Subjective Subjective Irritable this morning, reports her abdomen hurts all over, has not had a bowel movement since Wednesday, denies nausea. Reports she wants to leave today and then if she is not discharged tomorrow she will sign out AMA. Objective Data Objective Data Vital Signs: Vital Signs Temp Pulse Resp BP Pulse Ox O2 Del Method 97.8 F 87 21 H 99/69 98 Room Air 08/14/22 03:15 08/14/22 07:40 08/14/22 07:40 08/14/22 03:15 08/14/22 07:40 08/14/22 07:40 Oxygen Delivery Method Room Air Weight: 105.5 kg Body Mass Index (BMI) 37.9 Intake & Output: Intake and Output for Last 24 Hours 08/12/22 08/13/22 08/14/22 23:59 23:59 23:59 Intake Total 3057.5 / 3057.5 2124.0 / 2524.0 1375 / 1375 Output Total Balance 3037.5 / 3037.5 2124.0 / 2524.0 1375 / 1375 Lab / Micro Data Result Diagrams: 08/14/22 05:01 08/14/22 05:01 Labs: Laboratory Results - last 24 hr 08/13/22 05:17: ESR 43 H 08/13/22 05:17: C-React Prot Ext Range 188.00 H 08/13/22 10:22: POC Glucose 239 H 08/13/22 15:51: POC Glucose 277 H 08/13/22 20:59: POC Glucose 286 H 08/14/22 05:01: WBC 12.7 H, RBC 3.52 L, Hgb 9.1 L, Hct 28.9 L, MCV 82.1, MCH 25.9 L, MCHC 31.5 L, RDW Std Deviation 38.6, RDW Coeff of John 12.9, Plt Count 395, MPV 9.0, Immature Gran % (Auto) 2.200 H, Neut % (Auto) 65.7, Lymph % (Auto)22.3, Bacon % (Auto) 8.6, Eos % (Auto) 0.6, Baso % (Auto) 0.6, Absolute Neuts (auto) 8.4 H, Absolute Lymphs (auto) 2.84, Nucleated RBC % 0.2 08/14/22 05:01: Sodium 136, Potassium 3.9, Chloride 104, Carbon Dioxide 24.0, Anion Gap 8, BUN 5 L, Creatinine 0.76, Estim Creat Clear Calc 101.33, Est GFR (MDRD) Af Amer 115, Est GFR (MDRD) Non-Af 95, BUN/Creatinine Ratio 6.6 L, Glucose 218 H, Calcium 8.4 L 08/14/22 06:30: POC Glucose 250 H Micro: Microbiology 08/12/22 16:22 Urine, Clean Catch Urine Culture - Final Escherichia coli Physical Exam Narrative General: Alert, oriented, standing up, irritable HEENT: Atraumatic, normocephalic Eyes: Anicteric, normal conjunctiva, extraocular movements grossly intact Neck: Supple Respiratory: Clear to auscultation bilaterally, normal respiratory effort Cardiovascular: Regular rate and rhythm GI: Soft, very minimal tenderness diffusely, no rebound, no guarding, no rigidity, nondistended Extremities: No edema Musculoskeletal: Moving all extremities Neuro: No overt focal neurological deficits Skin: Faint rash on foot appears to be improving Psych: Irritable Assessment & Plan Assessment/Plan (1) Acute pyelonephritis: PLAN: Plan 32-year-old female with history of type 2 diabetes mellitus, hypertension, depression who presents to [facility] 08/12 with hyperglycemia andtachycardia. She was recently admitted on 06/29/2022 for right diabetic foot infection and is status post right toe amputation. Wound on the right foot is healed however blood sugar started elevating and morning of admission was 240. Did have some epigastric discomfort and nausea as well as an episode of emesis in the emergency room. In ED heart rate was 131 with a white count of 18.9, creatinine 1.11 with previous being 0.71. UA had positive ketones and glucose, leuk esterase 100, white count 10-25, nitrite negative and bacteria 0. Acetone negative. Chest x-ray unremarkable, CT of the abdomen and pelvis showed scarring of the right kidney, focal areas of diminished attenuation in the cortex associated with stranding in the fat possible representing inflammatory process in the kidney. #Acute right pyelonephritis Sepsis ruled out, had elevated white blood cell count and tachycardia which would meet SIRS criteria however did not have organ dysfunction noted but otherwise does not meet criteria Tachycardic, elevated blood blood cell count CT abdomen pelvis suggestive of right kidney Dieudonne UA not overly impressive for infection however Urine culture was sent from ED Started on IV Rocephin and fluids Kidney ultrasound 2/2: White blood cell count downtrending. Renal ultrasound reported normal appearance of the kidneys but did note that Dieudonne had been identified on prior CTand that it is not well demonstrated on her ultrasound as it is less sensitive. Urine is growing gram-negative rods and she has become tachycardic again and febrile. We will get blood cultures, check ESR and CRP, and broaden to Zosyn. CT did not show perinephric abscess but if slow to respond can consider rescan to evaluate for development of perinephric abscess 2/3: White blood cell count is improving urine culture growing E. coli with resistance to Bactrim and ampicillin with intermediate sensitivity to Unasyn, issensitive to Zosyn. We will continue that at this time pending blood cultures. Fever and tachycardia improving #Type 2 diabetes mellitus Insulin-dependent, continue Lantus as well as blood glucose checks and sliding scale insulin A1c June 2022 was 10.6 #Dehydration Admitting creatinine 1.11 from previous creatinine of 0.71 IV fluids 2/2: Creatinine improved to 0.86 with fluids #DVT ppx: Low risk early ambulation recommended Lexus Villatoro MD Time spent in the patient's overall evaluation,decision-making process, review of diagnostic data, adjustment of management, discussion with other providers, nursing nursing and ancillary staff involved in patient's care documentation, 30Minutes Charges/Coding Visit Charges Inpatient E&M: 37927 Subs Hosp L2 08/14/22 0850 <Electronically signed by Lexus Villatoro MD> Cosigner Signature (if applicable): CC: ~ Signed [facility] Work Phone: 1(367) 446-558402-02-[address]o [facility] August 13, 2022 4:34pm Note Date/Time August 13, 2022 8 :40am [facility] Medical Records Department [address] [place] [address] Progress Note - Hospitalist 08/13/22831 MR#: [id number] Acct: [id number] Name: GHISLAINE GIVENS Rep #:[id number] : 1990 32 From: Lexus Villatoro MD PCP: Dr. Sophy Gibbons Status:ADM IN Location: [place] [id number] Subjective Subjective Reports slight cough which she thinks is her asthma, abdomen somewhat sore but she is feeling much better than she did on presentation Objective Data Objective Data Vital Signs: Vital Signs Temp Pulse Resp BP Pulse Ox O2 Del Method 98.3 F 106 H 18 141/86 H 100 Room Air 08/13/22 05:26 08/13/22 05:26 08/13/22 05:26 08/13/22 05:26 08/13/22 05:26 08/13/22 05:26 Oxygen Delivery Method Room Air Weight: 106.7 kg Body Mass Index (BMI) 37.9 Intake & Output: Intake and Output for Last 24 Hours 08/11/22 08/12/22 08/13/22 23:59 23:59 23:59 Intake Total 3057.5 / 3057.5 216.5 / 216.5 Output Total Balance 3037.5 / 3037.5 216.5 / 216.5 Lab / Micro Data Result Diagrams: 08/13/22 05:17 08/13/22 05:17 Labs: Laboratory Results - last 24 hr 08/12/22 16:22: WBC 18.9 H, RBC 4.35, Hgb 11.4 L, Hct 34.0 L, MCV 78.2 L, MCH 26.2 L, MCHC 33.5, RDW Std Deviation 36.9, RDW Coeff of John 12.9, Plt Count 453 H, MPV 9.3, Immature Gran % (Auto) 1.000 H, Neut % (Auto) 69.8, Lymph % (Auto) 20.1, Bacon % (Auto) 8.7, Eos % (Auto) 0.1, Baso % (Auto) 0.3, Absolute Neuts (auto) 13.2 H, Absolute Lymphs (auto) 3.81, Nucleated RBC % 0, Differential Comment SCANNED, Diff Path Review November08/12/22 16:22: Sodium 130 L, Potassium 3.9, Chloride 95 L, Carbon Dioxide 23.0,Anion Gap 12, BUN 8, Creatinine 1.11 H, Estim Creat Clear Calc 69.38, Est GFR (MDRD) Af Amer 74, Est GFR (MDRD) Non-Af 61, BUN/Creatinine Ratio 7.2 L, [id number] H, Calcium 9.6, Magnesium 1.6, Total Bilirubin 0.50, AST 20, ALT 13, Alkaline Phosphatase 136 H, Troponin I High Sens 6, Total Protein 9.2 H, Albumin2.9 L, Globulin 6.3 H, Albumin/Globulin Ratio 0.5 L 08/12/22 16:22: Acetone Level NEGATIVE 08/12/22 16:22: Urine Color Yellow, Urine Clarity Clear, Urine pH 6.0, Ur Specific [place] 1.010, Urine Protein 100 H, Urine Glucose (UA) 50 H, Urine Ketones 15 H, Urine Occult Blood 150 H, Urine Nitrite Negative, Urine Bilirubin Negative, Urine Urobilinogen Normal, Ur Leukocyte Esterase 100 H, Urine RBC 0 SEEN, Urine WBC 10-25 SEEN, Ur Squamous Epith Cells 0-5 SEEN, Urine Bacteria 0 SEEN, Urine Mucus 0 SEEN 08/12/22 16:30: POC Glucose 238 H 08/12/22 17:32: POC Glucose 207 H 08/12/22 18:50: POC Glucose 203 H 08/12/22 20:13: POC Glucose 212 H 08/12/22 21:44: POC Glucose 238 H 08/12/22 22:33: POC Glucose 205 H 08/13/22 05:17: WBC 15.0 H, RBC 3.93 L, Hgb 10.1 L, Hct 31.8 L, MCV 80.9 L, MCH 25.7 L, MCHC 31.8 L D, RDW Std Deviation 37.9, RDW Coeff of John 12.9, Plt Count 404, MPV 9.1, Immature Gran % (Auto) 1.300 H, Neut % (Auto) 71.0 H, Lymph % (Auto) 17.3 L, Bacon % (Auto) 9.7, Eos % (Auto) 0.2, Baso % (Auto) 0.5, Absolute Neuts (auto) 10.6 H, Absolute Lymphs (auto) 2.59, Nucleated RBC % 0 08/13/22 05:17: Sodium 134 L, Potassium 4.1, Chloride 102, Carbon Dioxide 22.0, Anion Gap 10, BUN 7, Creatinine 0.86, Estim Creat Clear Calc 89.54, Est GFR (MDRD) Af Amer 99, Est GFR (MDRD) Non-Af 82, BUN/Creatinine Ratio 8.1 L, [id number] H, Calcium 8.6, Magnesium 2.2, Total Bilirubin 0.50, AST 8 L, ALT 11 L, Alkaline Phosphatase 99, Total Protein 8.1, Albumin 2.5 L, Globulin 5.6 H, Albumin/Globulin Ratio 0.4 L 08/13/22 05:31: POC Glucose 205 H 08/13/22 06:29: POC Glucose 237 H Radiography Diagnostic Testing: Radiology Impression Chest X-Ray 08/12/22 17:18 IMPRESSION: Normal x-ray examination of the chest. 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 Multiple subcentimeter retroperitoneal nodes of uncertain etiology but stable since previous study most likely inflammatory Electronically Signed: Andres Ramos MD at 18:42 EST , Renal Ultrasound 08/12/22 22:29 IMPRESSION: undefined Physical Exam Narrative General: Alert, oriented, no apparent distress HEENT: Atraumatic, normocephalic Eyes: Anicteric, normal conjunctiva, extraocular movements grossly intact Neck: Supple Respiratory: Clear to auscultation bilaterally, normal respiratory effort Cardiovascular: Regular rate and rhythm GI: Soft, nontender, nondistended Extremities: No edema Musculoskeletal: Moving all extremities Neuro: No overt focal neurological deficits Skin: Slight rash on right lower extremity with erythematous small spots over dorsum of foot which she reports has been there since she took the dressing off after amputation Psych: Cooperative Assessment & Plan Assessment/Plan (1) Acute pyelonephritis: PLAN: Plan 32-year-old female with history of type 2 diabetes mellitus, hypertension, depression who presents to [facility] 08/12 with hyperglycemia andtachycardia. She was recently admitted on 06/29/2022 for right diabetic foot infection and is status post right toe amputation. Wound on the right foot is healed however blood sugar started elevating and morning of admission was 240. Did have some epigastric discomfort and nausea as well as an episode of emesis in the emergency room. In ED heart rate was 131 with a white count of 18.9, creatinine 1.11 with previous being 0.71. UA had positive ketones and glucose, leuk esterase 100, white count 10-25, nitrite negative and bacteria 0. Acetone negative. Chest x-ray unremarkable, CT of the abdomen and pelvis showed scarring of the right kidney, focal areas of diminished attenuation in the cortex associated with stranding in the fat possible representing inflammatory process in the kidney. #Acute right pyelonephritis Sepsis ruled out, had elevated white blood cell count and tachycardia which would meet SIRS criteria however did not have organ dysfunction noted but otherwise does not meet criteria Tachycardic, elevated blood blood cell count CT abdomen pelvis suggestive of right kidney Dieudonne UA not overly impressive for infection however Urine culture was sent from ED Started on IV Rocephin and fluids Kidney ultrasound 08/13: White blood cell count downtrending. Renal ultrasound reported normal appearance of the kidneys but did note that Dieudonne had been identified on prior CTand that it is not well demonstrated on her ultrasound as it is less sensitive. Urine is growing gram-negative rods and she has become tachycardic again and febrile. We will get blood cultures, check ESR and CRP, and broaden to Zosyn. CT did not show perinephric abscess but if slow to respond can consider rescan to evaluate for development of perinephric abscess #Type 2 diabetes mellitus Insulin-dependent, continue Lantus as well as blood glucose checks and sliding scale insulin A1c June 2022 was 10.6 #Dehydration Admitting creatinine 1.11 from previous creatinine of 0.71 IV fluids 08/13: Creatinine improved to 0.86 with fluids #DVT ppx: Low risk early ambulation recommended Lexus Villatoro MD Time spent in the patient's overall evaluation,decision-making process, review of diagnostic data, adjustment of management, discussion with other providers, nursing nursing and ancillary staff involved in patient's care documentation, 40Minutes Charges/Coding Visit Charges Inpatient E&M: 51127 Subs Hosp L2 08/13/22 1634 <Electronically signed by Lexus Villatoro MD> Cosigner Signature (if applicable): CC: ~ Signed [facility] Work Phone: 1(130) 327-714302-02-[address]en [facility] August 12, 2022 10:42pm Note Date/Time August 12, 2022 3 :41pm [facility] Medical Records Department [address] [place] [address] Emergency Department Summary 08/12/22 MR#: [id number] Acct: [id number] Name: GHISLAINE GIVENS Rep #:[id number] : 1990 32 From: Alex Christiansen DO PCP: Dr. [facility] Status:ADM [id number] History of Present Illness Chief Complaint: Hyperglycemia Narrative Narrative: 32-year-old female presenting with hyperglycemia. She states that [facility] was [facility] and they were unable to check her blood sugar because they could not find a glucometer because she was tachycardic and sent her to theemergency room for fear that she might be hypoglycemic. Patient does report that she has had some elevated blood sugars in the 200s range in the last coupleof days. He does feel little bit lightheaded and a little bit dizzy at times. She has had some abdominal cramping and nausea. She does not state this is on typical for her because she has a little bit of gastroparesis. Patient had a fever that she knows of. She states that previously she had cellulitis on her right foot which is completely healing and doing well. [facility] Medical History (Updated 08/12/22 @ 21:[address] Valencia Urbina MD) Anxiety Asthma Constipation Depression Diabetes Diabetes mellitus with diabetic polyneuropathy Hypertension Type 2 diabetes mellitus with foot ulcer Home Medications albuterol sulfate 90 mcg/actuation aerosol inhaler (Ventolin HFA) 1 inh inhalation Q4H SOB 04/06/22 [History Last Taken 06/24/22] docusate sodium 100 mg capsule (Dulcolax Stool Softener (docusate)) 100 mg PO BID PRN stool 04/06/22 [History Last Taken 06/24/22] metformin 500 mg tablet 1,000 mg PO BID DM 06/24/22 [History Last Taken 06/24/22] insulin glargine 100 unit/mL (3 mL) subcutaneous pen (Lantus Solostar U-100 Insulin) 15 unit subcut BID 08/12/22 [History Last Taken Unknown] Allergy/AdvReac Type Severity Reaction Status Date / Time No Known Allergies Allergy Verified 08/12/22 15:27 Family History Other Bleeding disorder Cancer Diabetes Hypertension Surgical History Hx of foot surgery Social History Smoking Status: Current some day smoker tobacco type: cigarettes alcohol intake: never substance use type: does not use what type of physical activity do you participate in: none ROS ROS ED Constitutional Constitutional ED: Denies chills or fever(s) Eyes Eyes: Denies change in vision or diplopia ENT ENT ED: Denies rhinorrhea or sore throat Cardiovascular Cardiovascular: Denies chest pain or palpitations Respiratory/Chest Respiratory/Chest: Denies cough or dyspnea Gastrointestinal Gastrointestinal: Reports abdominal pain, nausea and vomiting Genitourinary Genitourinary ED: Denies dysuria or hematuria Musculoskeletal Musculoskeletal: Denies arthralgias or back pain Integumentary Denies abscess or Abrasions Neurologic Neurologic: Denies headache(s) or paresthesias Psychiatric Psychiatric: Denies anxiety or depression Endocrine Endocrinology: Denies cold intolerance or heat intolerance EXAM Physical Exam Const Vital Signs: 08/12/22 15:27 08/12/22 17:34 Temperature 97.5 F L Temperature Source Temporal Pulse Rate 137 H Respiratory Rate 16 Respiratory Pattern Normal Blood Pressure 129/86 H Blood Pressure Mean 100 Pulse Ox 98 Oxygen Delivery Method Room Air Positive well nourished General Appearance ED: NAD HEENT Reports moist mucous membranes and dry mucous membranes trauma Mouth ED: Yes dry mucous membranes Mouth: dry mucous membranes Eyes PERRL and EOMs intact bilaterally Chest Wall inspection of chest normal and palpation of chest normal Resp normal respiratory effort and clear to auscultation bilaterally Auscultation: Negative for rales, rhonchi or wheezes Cardio regular rhythm Rate: tachycardic GI non-distended Palpation: tender LUQ and periumbilical Back/Spine no CVA tenderness Neuro oriented x3 and CN's II-XII intact bilaterally Sensorium / Orientation: alert Motor Exam: strength 5/5 throughout Psych mental status grossly normal Skin no rashes or lesions noted and no wounds General Skin Exam: Negative for jaundice MDM MDM MDM Narrative Medical decision making narrative: 32-year-old female presenting with hyperglycemia. She is significantly tachycardic when she arrives. This reason patient was given 2 L of IV fluids. I did obtain a CBC which shows a leukocytosis of 18.9. Hemoglobin 11 point platelets 453. CMP to assess liver enzymes, renal function, electrolytes. Sodium slightly low at 130 however patient is hyperglycemic at 230. Sodium slightly low at 95. Creatinine elevated 1.11. Again patient was given 2 L of IV fluids. Acetone level was negative patient does not have an anion gap so I do not believe she is in DKA. She was assessed due to tachycardia and on my interpretation this is sinus tachycardia with a ventricular rate of 113 bpm. Chest x-ray on my interpretation showed no acute cardiopulmonary process. Radiologist are present and agrees. Patient significant leukocytosis as well asnausea and abdominal pain I did obtain a CT of the abdomen pelvis with IV contrast which showed findings suggestive of inflammatory multifocal lobar nephronia of the right kidney. Multiple subcentimeter retroperitoneal nodes of uncertain etiology but stable since previous study most likely inflammatory. Case was discussed with Dr. Bronson and he did think the patient needed medical admission. He recommended treating it like pyelonephritis. I spoke with the hospitalist. Patient was given Rocephin IV. Her vital signs have normalized. Urine culture was sent. Impression: 1. Leukocytosis 2. Nausea 3. Abdominal pain 4. Right-sided nephronia Lab Data Attestation: I reviewed the patient's lab results. Labs: Laboratory Results - last 24 hr 08/12/22 08/12/22 08/12/22 16:22 16:22 16:22 WBC 18.9 H RBC 4.35 Hgb 11.4 L Hct 34.0 L MCV 78.2 L MCH 26.2 L MCHC 33.5 RDW Std Deviation 36.9 RDW Coeff of John 12.9 Plt Count 453 H MPV 9.3 Immature Gran % (Auto) 1.000 H Neut % (Auto) 69.8 Lymph % (Auto) 20.1 Bacon % (Auto) 8.7 Eos % (Auto) 0.1 Baso % (Auto) 0.3 Absolute Neuts (auto) 13.2 H Absolute Lymphs (auto) 3.81 Nucleated RBC % 0 Differential Comment SCANNED Diff Path Review May foll Sodium 130 L Potassium 3.9 Chloride 95 L Carbon Dioxide 23.0 Anion Gap 12 BUN 8 Creatinine 1.11 H Estim Creat Clear Calc 69.38 Est GFR (MDRD) Af Amer 74 Est GFR (MDRD) Non-Af 61 BUN/Creatinine Ratio 7.2 L Glucose 230 H Calcium 9.6 Magnesium 1.6 Total Bilirubin 0.50 AST 20 ALT 13 Alkaline Phosphatase 136 H Troponin I High Sens 6 Total Protein 9.2 H Albumin 2.9 L Globulin 6.3 H Albumin/Globulin Ratio 0.5 L Urine Color Urine Clarity Urine pH Ur Specific [place] Urine Protein Urine Glucose (UA) Urine Ketones Urine Occult Blood Urine Nitrite Urine Bilirubin Urine Urobilinogen Ur Leukocyte Esterase Urine RBC Urine WBC Ur Squamous Epith Cells Urine Bacteria Urine Mucus Acetone Level NEGATIVE POC Glucose 08/12/22 08/12/22 08/12/22 16:22 16:30 17:32 WBC RBC Hgb Hct MCV MCH MCHC RDW Std Deviation RDW Coeff of John Plt Count MPV Immature Gran % (Auto) Neut % (Auto) Lymph % (Auto) Bacon % (Auto) Eos % (Auto) Baso % (Auto) Absolute Neuts (auto) Absolute Lymphs (auto) Nucleated RBC % Differential Comment Diff Path Review Sodium Potassium Chloride Carbon Dioxide Anion Gap BUN Creatinine Estim Creat Clear Calc Est GFR (MDRD) Af Amer Est GFR (MDRD) Non-Af BUN/Creatinine Ratio Glucose Calcium Magnesium Total Bilirubin AST ALT Alkaline Phosphatase Troponin I High Sens Total Protein Albumin Globulin Albumin/Globulin Ratio Urine Color Yellow Urine Clarity Clear Urine pH 6.0 Ur Specific [place] 1.010 Urine Protein 100 H Urine Glucose (UA) 50 H Urine Ketones 15 H Urine Occult Blood 150 H Urine Nitrite Negative Urine Bilirubin Negative Urine Urobilinogen Normal Ur Leukocyte Esterase 100 H Urine RBC 0 SEEN Urine WBC 10-25 SEEN Ur Squamous Epith Cells 0-5 SEEN Urine Bacteria 0 SEEN Urine Mucus 0 SEEN Acetone Level POC Glucose 238 H 207 H 08/12/22 18:50 WBC RBC Hgb Hct MCV MCH MCHC RDW Std Deviation RDW Coeff of John Plt Count MPV Immature Gran % (Auto) Neut % (Auto) Lymph % (Auto) Bacon % (Auto) Eos % (Auto) Baso % (Auto) Absolute Neuts (auto) Absolute Lymphs (auto) Nucleated RBC % Differential Comment Diff Path Review Sodium Potassium Chloride Carbon Dioxide Anion Gap BUN Creatinine Estim Creat Clear Calc Est GFR (MDRD) Af Amer Est GFR (MDRD) Non-Af BUN/Creatinine Ratio Glucose Calcium Magnesium Total Bilirubin AST ALT Alkaline Phosphatase Troponin I High Sens Total Protein Albumin Globulin Albumin/Globulin Ratio Urine Color Urine Clarity Urine pH Ur Specific [place] Urine Protein Urine Glucose (UA) Urine Ketones Urine Occult Blood Urine Nitrite Urine Bilirubin Urine Urobilinogen Ur Leukocyte Esterase Urine RBC Urine WBC Ur Squamous Epith Cells Urine Bacteria Urine Mucus Acetone Level POC Glucose 203 H Radiography Diagnostic Testing: Clinical Impression(s) from Imaging Studies Chest X-Ray 08/12/22 17:18 IMPRESSION: Normal x-ray examination of the chest. 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 Multiple subcentimeter retroperitoneal nodes of uncertain etiology but stable since previous study most likely inflammatory Electronically Signed: Andres Ramos MD at 18:42 EST Reading Location ID and State: [facility] / [place] , Service support , Discharge Plan Disposition Disposition: Acute Care Hospital [facility] Discharge Date/Time: 08/12/22 22:03 What to do if you have Problems For any increased pain, shortness of breath, bleeding, nausea or vomiting, chestpain, or any unexpected problems, contact your Primary Care Provider. Call [facility] ([phone]) or report to the closest Emergency Room. Call 911 if necessary. 08/12/222241 <Electronically signed by Alex Christiansen DO> Cosigner Signature (if applicable): CC: Dr. Sophy Gibbons ~ Signed [facility] Work Phone: 1(422) 217-437102-01-2023 History and physical note Author Dr. Urbina [facility] August 12, 2022 9:20pm Note Date/Time August 12, 2022 8 :09pm [facility] Medical Records Department [address] [place] [address] H&P Exam - Hospitalist 08/12/222008 MR#: [id number] Acct: [id number] Name: GHISLAINE GIVENS Rep #:[id number] : 1990 32 From: Valencia Urbina MD PCP: Dr. Sophy Gibbons Status:ADM IN Location: [facility] [id number] HPI - General General Date of Admission: 08/12/22 Date of Service: 08/12/22 Chief Complaint: Hyperglycemia, tachycardia HPI Narrative GHISLAINE GIVENS, is a 32 F who presents with the above. Patient has past medicalhistory of type II DM, recent discharge from the hospital on 06/29/22 for right diabetic foot infection status post right toe amputation. Patient was referred to the emergency room from [facility] for hyperglycemia and tachycardia. Patient denies any fever or chills. Her wound in the right foot is healed. She stated that at home, her blood sugar was 240 in the morning. She denied any dizziness or palpitations or chest pain or shortness of breath. She admits to epigastric discomfort, nausea and an episode of vomiting in the emergency room. She denied any flank pain or dysuria or lower abdominal discomfort Vital in the ED showed blood pressure 129/86, heart rate 137, respiratory rate 16, temperature 97.5 F, oxygen sat 98% on room air. WBC 18.9, with neutrophilia, hemoglobin 11.4, platelet count 453, sodium 130 potassium 3.9, chloride 95, bicarbonate 23, BUN 8, creatinine 1.11, previous creatinine 0.71, blood sugar is 230, magnesium is 1.6. UA is clear, ketones positive, glucose positive, nitrate negative, leukocyte esterase 100, bacteria 0, WBC count 10-25.Acetone negative. Admitting chest x-ray is unremarkable. 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 Valencia Urbina MD) Anxiety Asthma Constipation Depression Diabetes Diabetes mellitus with diabetic polyneuropathy Hypertension Type 2 diabetes mellitus with foot ulcer Home Medications albuterol sulfate 90 mcg/actuation aerosol inhaler (Ventolin HFA) 1 inh inhalation Q4H SOB 04/06/22 [History Last Taken 06/24/22] docusate sodium 100 mg capsule (Dulcolax Stool Softener (docusate)) 100 mg PO BID PRN stool 04/06/22 [History Last Taken 06/24/22] metformin 500 mg tablet 1,000 mg PO BID DM 06/24/22 [History Last Taken 06/24/22] insulin glargine 100 unit/mL (3 mL) subcutaneous pen (Lantus Solostar U-100 Insulin) 15 unit subcut BID 08/12/22 [History Last Taken Unknown] Allergy/AdvReac Type Severity Reaction Status Date / Time No Known Allergies Allergy Verified 08/12/22 15:27 Family History Other Bleeding disorder Cancer Diabetes Hypertension Surgical History Hx of foot surgery Social History Smoking Status: Current some day smoker tobacco type: cigarettes alcohol intake: never substance use type: does not use what type of physical activity do you participate in: none ROS ROS Narrative Constitutional:Denies: Anorexia, Chills, Fever, Night Sweats, Weight Change Eyes: Denies: Blurred vision, Cataracts, Conjunctivae Inflammation, Pain, Redness, Vision Change HEENT: Denies: Difficulty Hearing, Difficulty Swallowing, Head Aches, Hearing Changes, Sinus Congestion, Sinus Drainage Cardiovascular: Denies: Chest Pain, Orthopnea, Palpitations Respiratory: Denies: Cough, Shortness of breath at rest, Sputum production Gastrointestinal: See HPI Genitourinary: Denies: Dysuria Musculoskeletal: Denies: Joint Pain, Joint stiffness, Joint swelling, Joint Tenderness Skin: Denies: Rash, Wounds Neurological: Denies: Numbness, Tingling, Focal weakness Vital Signs Vital Signs Vital Signs: 08/12/22 15:27 08/12/22 17:34 Temperature 97.5 F L Temperature Source Temporal Pulse Rate 137 H Respiratory Rate 16 Respiratory Pattern Normal Blood Pressure 129/86 H Blood Pressure Mean 100 Pulse Ox 98 Oxygen Delivery Method Room Air Weight Weight: 106.594 kg Body Mass Index (BMI) 37.9 Physical Exam Narrative General: Alert, Oriented x3, Cooperative, No apparent distress HEENT: Atraumatic, PERRLA, EOMI, Normocephalic Oral: Moist Mucosa Neck: Supple Lungs: Normal air movement, Diminished Cardiovascular: Regular rate, Regular Rhythm, Normal S1, Normal S2, No murmurs Abdomen: Bowel Sounds Present, Soft, Non Tender, Non-Distended, No Hepato-splenomegaly Extremities: No edema Skin: No rashes Neurological: Cranial nerves II-XII grossly intact, Neuro grossly intact Psych/Mental Status: Normal Affect, Appropriate Results Lab / Micro Data Result Diagrams: 08/12/22 16:22 08/12/22 16:22 Labs: Laboratory Results - last 24 hr 08/12/22 16:22: WBC 18.9 H, RBC 4.35, Hgb 11.4 L, Hct 34.0 L, MCV 78.2 L, MCH 26.2 L, MCHC 33.5, RDW Std Deviation 36.9, RDW Coeff of John 12.9, Plt Count 453 H, MPV 9.3, Immature Gran % (Auto) 1.000 H, Neut % (Auto) 69.8, Lymph % (Auto) 20.1, Bacon % (Auto) 8.7, Eos % (Auto) 0.1, Baso % (Auto) 0.3, Absolute Neuts (auto) 13.2 H, Absolute Lymphs (auto) 3.81, Nucleated RBC % 0, Differential Comment SCANNED, Diff Path Review November foll 08/12/22 16:22: Sodium 130 L, Potassium 3.9, Chloride 95 L, Carbon Dioxide 23.0,Anion Gap 12, BUN 8, Creatinine 1.11 H, Estim Creat Clear Calc 69.38, Est GFR (MDRD) Af Amer 74, Est GFR (MDRD) Non-Af 61, BUN/Creatinine Ratio 7.2 L, [id number] H, Calcium 9.6, Magnesium 1.6, Total Bilirubin 0.50, AST 20, ALT 13, Alkaline Phosphatase 136 H, Troponin I High Sens 6, Total Protein 9.2 H, Albumin2.9 L, Globulin 6.3 H, Albumin/Globulin Ratio 0.5 L 08/12/22 16:22: Acetone Level NEGATIVE 08/12/22 16:22: Urine Color Yellow, Urine Clarity Clear, Urine pH 6.0, Ur Specific [place] 1.010, Urine Protein 100 H, Urine Glucose (UA) 50 H, Urine Ketones 15 H, Urine Occult Blood 150 H, Urine Nitrite Negative, Urine Bilirubin Negative, Urine Urobilinogen Normal, Ur Leukocyte Esterase 100 H, Urine RBC 0 SEEN, Urine WBC 10-25 SEEN, Ur Squamous Epith Cells 0-5 SEEN, Urine Bacteria 0 SEEN, Urine Mucus 0 SEEN 08/12/22 16:30: POC Glucose 238 H 08/12/22 17:32: POC Glucose 207 H 08/12/22 18:50: POC Glucose 203 H Radiology Impression Chest X-Ray 08/12/22 17:18 IMPRESSION: Normal x-ray examination of the chest. 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 Multiple subcentimeter retroperitoneal nodes of uncertain etiology but stable since previous study most likely inflammatory Electronically Signed: Andres Ramos MD at 18:42 EST Reading Location ID and State: [facility] / [place] , Service support , Assessment & Plan Assessment/Plan (1) Acute pyelonephritis: PLAN: Plan 1. Sepsis secondary to Acute right pyelonephritis, Patient presented with tachycardia, heart rate in the 130s, leukocytosis, WBC count more than 18 Multilobular nephronia of the right kidney seen on CT of the abdomen and pelvis UA however is not too impressive for acute UTI and patient is asymptomatic Started on IV ceftriaxone, urine culture sent from the ED Admits to PCU, continue on IV fluids, IV ceftriaxone Will obtain kidney, bladder ultrasound 2. Hypomagnesemia, magnesium is 1.6, replace, recheck in a.m. 3. Type II DM, last HbA1c in June 2022 was 10.6, insulin-dependent Continue on Lantus, blood glucose checks with insulin sliding scale 4. Dehydration, admitting creatinine is 1.11, previous creatinine 0.71 Continue on IV fluids, recheck blood work in a.m. 5. Hyponatremia, likely related to dehydration, will recheck labs in a.m. 6. DVT PPx -low risk, early ambulation recommended Total time spent: 55 minutes of which a greater time was spent in reviewing patient's chart,laboratory investigations, imaging, taking of history and physical examining patient as well as discussing with emergency room physician. Charges/Coding Visit Charges Inpatient E&M: 99857 Init Hosp L2 08/12/222119 <Electronically signed by Valencia Urbina MD> Cosigner Signature (if applicable): CC: Dr. Valencia Urbina MD; Dr. Sophy Gibbons~ Signed [facility] Work Phone: [phone]) 474-951509-12-2022 History of Present illness Narrative* Luis Mayes, RT(R) - 03/23/2022 12:50 PM EDT Radiology Service Progress Note PATIENT NAME: Ghislaine Givens DATE OF SERVICE: March 23, 2022 TIME: 1:00 PM PATIENT IDENTITY VERIFICATION COMPLETED USING TWO (2) IDENTIFIERS: Name and Date of confirmedby patient verbally. FALL SCREENING: Has the patient had 2 falls in the last year or 1 fall with injury or currently using an Ambulatory Assistive Device (Walker, Cane, Wheelchair, Crutches, etc.)? No PATIENT GENDER DATA: Female. status: : No status: NO. PATIENT RELEVANT IMPLANT DATA REVIEWED: Not Applicable RADIOLOGY DEPARTMENT: General X-ray: Exam(s) Completed: Chest X-Ray PERIPHERAL IV DATA: Not applicable SIGNED BY: RT Los(R) March 23, 2022 1:00 PM documented in this encounterChildren'[facility]09-12-2022 History of Present illness Narrative* Sid Bravo MD - 03/23/2022 12:37 PM EDT Patient presents with: Cough: Chest congestion x4 days HPI: Coughing for 5 days. Positive symptoms: non-productive cough, slow exhale, improved Nasal Congestion, slight Sore throat, Negative symptoms: Chest pain, Fever, Malaise, Nausea, Vomiting, Diarrhea, OTC: Robitussin, albuterol helps but is missing and needs a refill Has a consult with pulmonology 04/07/[address] in January. Had COVID illness in April. Negative COVID test last week. PAST MEDICAL HISTORY Diagnosis Date Bipolar 1 disorder (HCC) 2007 Depression Elevated BP 04/28/2013 Insomnia MEDICATIONS: Current Outpatient Medications Medication Sig albuterol HFA (PROAIR HFA) 90 mcg/actuation inhaler Inhale 2 Puffs as instructed every 4 hours as needed. metFORMIN (GLUCOPHAGE) 500 mg tablet One pill by mouth daily w/ breakfast X 1 week; then increase to twice daily w/ meals. ondansetron orally disintegrating (ZOFRAN ODT) 4 mg disintegrating tablet Take 4 mg by mouth every 6 hours as needed. (Patient not taking: Reported on 03/23/2022) polyethylene glycol 3350 (MIRALAX, GLYCOLAX) 17 gram/dose powder Take 17 g by mouth once daily. Dissolve dose in 4 - 8 ounces of liquid and take as directed. (Patient not taking: Reported on 03/23/2022) blood sugar diagnostic (FREESTYLE LITE STRIPS) test strip Test blood sugar(s) 1 times daily. Dx: 250.02. Insulin: No (Patient not taking: Reported on 11/16/2018 ) Lancets (FREESTYLE LANCETS) lancets Test blood sugar(s) 1 daily. Dx: 250.02. Insulin: No (Patient not taking: Reported on 11/16/2018 ) No current facility-administered medications for this visit. ALLERGIES: ALLERGIES Allergen Reactions Cephalexin Other: See Comments Spots on hands VITALS: BP 130/98 Pulse 105 Temp 36.1 C (97 F) Resp 20 Wt 97.1 kg (214 lb) LMP 05/18/2021 SpO2 93% BMI 34.54 kg/m PHYSICAL EXAM: GEN: mildly ill appearing HEENT: PERRL, EOMI, conjunctiva clear Ears: canals clear. TMs without erythema, bulge, or effusion Sinuses: non-tender frontal sinus, non-tender maxillary sinuses Throat: moist mucous membranes, no erythema, no exudate Neck: supple, no thyromegaly, no lymphadenopathy HEART: regular rate and rhythm, no murmurs LUNGS: mild right sided wheezes and crackles, no increased WOB; intermittent non-productive cough ASSESSMENT/PLAN: 1. Acute cough - ICD9: 786.2, ICD10: R05.1 (primary diagnosis) 2. Mild intermittent asthmatic bronchitis without complication - ICD9: 493.90, ICD10: J45.20 - suspect viral URI triggering reactive airway disease, differential includes COVID-19. - Discussed supportive care treatment. - Red flags to seek further treatment include chest pain, shortness of breath, and lethargy; in theER if severe. - ALBUTEROL SULFATE HFA 90 MCG/ACTUATION AEROSOL INHALER - XR CHEST 2V FRONTAL/LAT -compared to May 2021, no acute abnormalities. - 2019 CORONAVIRUS Sid Bravo MD documented in this encounterChildren'S [facility]07-25-2022 History of Present illness Narrative* Alyssa Jaime APRN.[facility] - 02/02/2022 9:56 AM EDT Subjective The history is provided by the patient. No english language learner teacher was used. HPI Ghislaine Givens is a 32 year old female who presents today for CC of concerns that she was in ERyeerday and was not treated for a pneumonia seen on CAT scan. Patient over the past month has been seen in ED for vomiting and abdominal pain. She is seeing GI at [facility], was seen on Wednesday and call them this morning. She is scheduled for a scope. Multiple CT scans that are negative, however yesterday's revealed possible pneumonia, pneumonitis. She was concerned she was not treated. She denies fever, chills, back pain or cough. BP 120/72 Pulse 74 Temp 36.2 C (97.2 F) Resp 16 Wt 92.5 kg (204 lb) LMP 05/18/2021 HjV147% BMI 32.93 kg/m Social History Tobacco Use Smoking status: Current Every Day Smoker Packs/day: 0.50 Years: 3.00 Pack years: 1.50 Types: Cigarettes Smokeless tobacco: Never Used Substance Use Topics Alcohol use: Yes Comment: Seldom Drug use: No PAST MEDICAL HISTORY Diagnosis Date Bipolar 1 disorder (HCC) 2008 Depression Elevated BP 04/28/2013 Insomnia I have confirmed and edited as necessary, the [facility] Review of Systems Constitutional: Negative for chills, fever and malaise/fatigue. Respiratory: Negative for cough, sputum production, shortness of breath and wheezing. Gastrointestinal: Positive for abdominal pain and vomiting. Negative for diarrhea and nausea. Genitourinary: Negative for dysuria, flank pain, frequency, hematuria and urgency. Musculoskeletal: Negative for myalgias. Objective Physical Exam Vitals and nursing note reviewed. Constitutional: Appearance: Normal appearance. Cardiovascular: Rate and Rhythm: Normal rate and regular rhythm. Heart sounds: Normal heart sounds. Pulmonary: Effort: Pulmonary effort is normal. Breath sounds: Normal breath sounds. Abdominal: General: Bowel sounds are normal. There is no abdominal bruit. Palpations: Abdomen is not rigid. There is no mass or pulsatile mass. Tenderness: There is no abdominal tenderness. There is no guarding or rebound. Negative signs include Morris's sign and McBurney's sign. Neurological: Mental Status: She is alert and oriented to person, place, and time. Psychiatric: Mood and Affect: Affect normal. ASSESSMENT/PLAN: 1. Abnormal lung scan - ICD9: 794.2, ICD10: R94.2 (primary diagnosis) Scheduled follow up with PCP and pulmonology for further evaluation and treatment Patient is going to try sophy gibbons for primary care, unable to get in [place] until May. - CONSULT TO PULM/CRITICAL CARE 2. Nausea and vomiting, unspecified vomiting type - ICD9: 787.01, ICD10: R11.2 Continue follow up with GI doctor Diagnosis and treatment plan were discussed and questions were answered to the patient's satisfaction. Pt acknowledged understanding of concepts and follow up plan. Specific signs and symptoms that would indicate the need for higher level of care were discussed indetail warranting prompt ER evaluation. Alyssa Jaime APRN.CNP Medical Decision Making: Problems: Moderate: New problem with uncertain prognosis Data: Assessment requiring an independent historian(s) Risk: Low: Low risk from testing/treatment Medical Decision Making Level: 3 - Low documented in this encounterChildren'S [facility]07-25-2022 Instructions* Patient Instructions* Alyssa Jaime APRN.CNP - 02/02/2022 9:52 AM EDT Will set up follow for primary care and pulmonology To ER for worsening symptoms, increased pain, fevers, vomiting, decreased urine output, blood in her urine blood in her stools or dark tarry stools. documented in this encounterChildren'S [facility]11-04-2021 History of Present illness Narrative* Luis Mayes RT(R) - 05/15/2021 10:00 AM EDT Radiology Service Progress Note PATIENT NAME: Ghislaine Givens DATE OF SERVICE: May 15, 2021 TIME: 9:57 AM PATIENT IDENTITY VERIFICATION COMPLETED USING TWO (2) IDENTIFIERS: Name and Date of confirmedby patient verbally. FALL SCREENING: Has the patient had 2 falls in the last year or 1 fall with injury or currently using an Ambulatory Assistive Device (Walker, Cane, Wheelchair, Crutches, etc.)? No PATIENT GENDER DATA: Female. status: : No status: NO. PATIENT RELEVANT IMPLANT DATA REVIEWED: Not Applicable RADIOLOGY DEPARTMENT: General X-ray: Exam(s) Completed: Chest X-Ray PERIPHERAL IV DATA: Not applicable SIGNED BY: RT Los(R) May 15, 2021 9:57 AM documented in this encounterChildren'S [facility] Rehabilitation10-18-2013 History of Past illness Narrative* Problem Noted Date Resolved Date Elevated BP 04/28/2013 11/27/2013 Last Assessment & Plan: She is going to keep a log of her blood pressures and call me with them. I think she might need some medication especially because she is morbidly obese. If she looses weight, she will probably not be hypertensive. documented as of this encounter (statuses as of 02/02/2022) [facility] History of Past illness Narrative* Problem Noted Date Resolved Date Elevated BP 04/28/2013 11/27/2013 Last Assessment & Plan: She is going to keep a log of her blood pressures and call me with them. I think she might need some medication especially because she is morbidly obese. If she looses weight, she will probably not be hypertensive. documented as of this encounter (statuses as of 03/23/2022) [facility] History of Past illness Narrative* Problem Noted Date Resolved Date Elevated BP 04/28/2013 11/27/2013 Last Assessment & Plan: She is going to keep a log of her blood pressures and call me with them. I think she might need some medication especially because she is morbidly obese. If she looses weight, she will probably not be hypertensive. documented as of this encounter (statuses as of 10/08/2022) [facility] History of Past illness Narrative* Problem Noted Date Resolved Date Elevated BP 04/28/2013 11/27/2013 Last Assessment & Plan: She is going to keep a log of her blood pressures and call me with them. I think she might need some medication especially because she is morbidly obese. If she looses weight, she will probably not be hypertensive. documented as of this encounter (statuses as of 10/12/2022) [facility] History of Past illness Narrative* Problem Noted Date Resolved Date Elevated BP 04/28/2013 11/27/2013 Last Assessment & Plan: She is going to keep a log of her blood pressures and call me with them. I think she might need some medication especially because she is morbidly obese. If she looses weight, she will probably not be hypertensive. documented as of this encounter (statuses as of 11/17/2022) [facility] History of Past illness Narrative* Problem Noted Date Diagnosed Date Resolved Date Elevated BP 04/28/2013 11/27/2013 Last Assessment & Plan: She is going to keep a log of her blood pressures and call me with them. I think she might need some medication especially because she is morbidly obese. If she looses weight, she will probably not be hypertensive. documented as of this encounter (statuses as of 02/04/2023) [facility] History of Past illness Narrative* Problem Noted Date Diagnosed Date Resolved Date Elevated BP 04/28/2013 11/27/2013 Last Assessment & Plan: She is going to keep a log of her blood pressures and call me with them. I think she might need some medication especially because she is morbidly obese. If she looses weight, she will probably not be hypertensive. documented as of this encounter (statuses as of 02/24/2023) [facility] History of Past illness Narrative* Problem Noted Date Diagnosed Date Resolved Date Elevated BP 04/28/2013 11/27/2013 Last Assessment & Plan: She is going to keep a log of her blood pressures and call me with them. I think she might need some medication especially because she is morbidly obese. If she looses weight, she will probably not be hypertensive. documented as of this encounter (statuses as of 03/02/2023) [facility] of Past illness Narrative* Problem Noted Date Diagnosed Date Resolved Date Elevated BP 04/28/2013 11/27/2013 Last Assessment & Plan: She is going to keep a log of her blood pressures and call me with them. I think she might need some medication especially because she is morbidly obese. If she looses weight, she will probably not be hypertensive. documented as of this encounter (statuses as of 03/02/2023) [facility] of Past illness Narrative* Problem Noted Date Diagnosed Date Resolved Date Elevated BP 04/28/2013 11/27/2013 Last Assessment & Plan: She is going to keep a log of her blood pressures and call me with them. I think she might need some medication especially because she is morbidly obese. If she looses weight, she will probably not be hypertensive. documented as of this encounter (statuses as of 03/09/2023) [facility] of Past illness Narrative* Problem Noted Date Diagnosed Date Resolved Date Elevated BP 04/28/2013 11/27/2013 Last Assessment & Plan: She is going to keep a log of her blood pressures and call me with them. I think she might need some medication especially because she is morbidly obese. If she looses weight, she will probably not be hypertensive. documented as of this encounter (statuses as of 03/10/2023) [facility] of Past illness Narrative* Problem Noted Date Diagnosed Date Resolved Date Elevated BP 04/28/2013 11/27/2013 Last Assessment & Plan: She is going to keep a log of her blood pressures and call me with them. I think she might need some medication especially because she is morbidly obese. If she looses weight, she will probably not be hypertensive. documented as of this encounter (statuses as of 03/12/2023) [facility] of Past illness Narrative* Problem Noted Date Diagnosed Date Resolved Date Elevated BP 04/28/2013 11/27/2013 Last Assessment & Plan: She is going to keep a log of her blood pressures and call me with them. I think she might need some medication especially because she is morbidly obese. If she looses weight, she will probably not be hypertensive. documented as of this encounter (statuses as of 03/26/2023) [facility] of Past illness Narrative* Problem Noted Date Diagnosed Date Resolved Date Elevated BP 04/28/2013 11/27/2013 Last Assessment & Plan: She is going to keep a log of her blood pressures and call me with them. I think she might need some medication especially because she is morbidly obese. If she looses weight, she will probably not be hypertensive. documented as of this encounter (statuses as of 04/16/2023) [facility] of Past illness Narrative* Problem Noted Date Diagnosed Date Resolved Date Elevated BP 04/28/2013 11/27/2013 Last Assessment & Plan: She is going to keep a log of her blood pressures and call me with them. I think she might need some medication especially because she is morbidly obese. If she looses weight, she will probably not be hypertensive. documented as of this encounter (statuses as of 07/02/2023) [facility] RehabilitationDis[facility] summary Author Rickey Gifford [facility] May 09, 2023 2:02pm Note Date/Time May 09, 2023 2 :02pm [facility] Medical Records Department [address] [place] [id number] Discharge Summary 05/09/23 1354 MR#: [id number] Acct: [id number] Name: GHISLAINE GIVENS Rep #:[id number] : 1990 33 From: Rickey Gifford DO PCP: Care Physician,No Primary Status :ADM IN Location: [facility] SC911-0 Providers Date of Admission: 05/04/23 Primary Care Physician: No Primary Care Phys Consultations 05/04/23 19:30 Consult: Onc/Wound/cloth beamer Routine Comment: Reason For Visit: RIGHT FOOT WOUND Diagnosis Discharge Diagnosis (1) Diabetic foot infection: Status: Acute Code(s): E11.628 - Type 2 diabetes mellitus with other skin complications; L08.9 - Local infection of the skin and subcutaneous tissue, unspecified Plan: With gas gangrene, abscess, full thickness ulceration with fat exposed. Pt underwent incision and drainage right foot on 05/04. Antibiotics with vancomycin and also add piperacillin/tazobactam. Follow-up cultures. Thus far showing Group C Strep, will vancomycin for now. Nonweightbearing on right lower extremity until okayed by podiatry. MRI showed ulcer at the plantar aspect of the forefoot with suspected adjacent abscess Further mgmt per podiatry. Pt had bedside I+D that showed scant purulent drainage. Definite procedure planned for 05/07 with excisional debridement w washout, delay primary closure. Cx showing Strep dysgalactiae, S. epi, Staph hominis. Can discharge with amoxicillin/CA and levofloxacin. (2) Nausea and vomiting: Status: Acute Code(s): R11.2 - Nausea with vomiting, unspecified Plan: Chronic Has had a GES that was reportedly negative. I told he and her significant other that it is unclear what it could be. It could be gastroparesis v other. It may be reasonable to be on a gluten-free diet to see that would help. The significant other is aware of the diet because he has family members who are on a gluten-free diet. 05/08: Abdominal pain is worse. Exam is pretty unremarkable. Patient reportedly has had an extensive work-up. We will see how she does if this can improve or not. Abdominal xray showed constipation. Pt had Miralax and dulcolax already ordered, but was not taking. 05/09: exam benign except for the pain. Data for OSH review through [facility]: * CT A/P on 03/03/23: Unremarkable. * Abdominal Xray 03/02/23: No acute findings. * EGD 02/19/23: esophageal ulcer. mild gastritis. normal duodenum. * Pelvic US 02/11/23: Normal * Abdominal US 02/11/23: fatty liver. No acute findings. * Gastric emptying study 02/11/23: Initially rapid gastric emptying, but remainder of ananya examination is normal w/o evidence of gastroparesis. * CT A/P 7/2/23: left hydrosalpinx. Mildly dilated CBD. Plan Chronic conditions * Diabetes mellitus type 2: fair control. Continue with glargine. Hold metformin for the time being. Add sliding scale insulin. * Diabetic neuropathy VTE prophylaxis with enoxaparin. Greater than 55 minutes of which greater than for present time was discussing case with the patient at bedside in regards to her benign exam and negative work-up here but also that she does have constipation. Also reviewing records through [facility]. Medications at Discharge Home Medications albuterol sulfate 90 mcg/actuation aerosol inhaler (Ventolin HFA) 1 inh inhalation Q4H SOB 04/06/22 insulin glargine 100 unit/mL (3 mL) subcutaneous pen (Lantus Solostar U-100 Insulin) 15 unit subcut BID diabetes 08/12/22 hyoscyamine sulfate 0.125 mg sublingual tablet (Levsin/SL) 0.125 mg PO TID PRN abdominal pain #10 tabs 01/07/23 bisacodyl 10 mg rectal suppository (Dulcolax (bisacodyl)) 10 mg [place] DAILY 3 days #12 ea 01/15/23 acetaminophen 325 mg tablet 650 mg (2 x 325 mg) PO Q6H PRN PRN Pain 1-10 Or Fever >100.7 #0 tabs 05/09/23 amoxicillin 875 mg-potassium clavulanate 125 mg tablet 1 tab PO Q12H #24 tabs 05/09/23 dicyclomine 20 mg tablet 20 mg PO TID PRN abdominal pain #30 tabs 05/09/23 levofloxacin 750 mg tablet 750 mg PO DAILY #12 tabs 05/09/23 metoclopramide HCl 5 mg tablet (Reglan) 5 mg PO Q6H PRN nausea and vomiting 3 days #20 tabs 05/09/23 ondansetron HCl 8 mg tablet 8 mg PO Q8H 5 days #15 tabs 05/09/23 Hospital Course Operations - (1. Incision and drainage, right foot then 1. Tendo Achillis lengthening, right lower extremity 2. 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 Patient underwent an I&D of herright foot on the that showed abscess and gas gangrene. Patient had bedside I&D because the MRI was concerning for abscess but did show just a postoperative hematoma. Patient went back on the and she underwent tendo Achilles lengthening, right lower extremity delayed primary closure. Patient's course was rather uncomplicated as we are just waiting on culture results come back. Patient had noted, when she was comfortable, that she had some issues regards to nausea and vomiting. Explained that she has had extensive work-up for this including gastric emptying study EGD and so forth. Later on that evening, patient started having intractable abdominal pain as well as nausea andvomiting. Went and saw the patient the next day and she was actually laying on her abdomen I had her turn onto her back and then as I was just not even having the chance to actually palpate but just grazed her skin she was screaming out inpain. We did do an x-ray that showed constipation. But no other acute process. I was able to review data from outside hospitals [facility] [facility] as well as [facility] and [place], [place]. Patient has had CAT scans, EGDs, ultrasounds. Also was able to review some notes and the work-up has been unremarkable. Patient had previously been seen by psychiatry one of the institutions. It seems that this is more psychosomatic whether or not this may be conversion disorder, malingering, is unclear. Patient was able to shows that she had a bag full of liquid emesis. It was clear liquid and patient just explained that she is having pain when she was sitting up and that she was able to lay herself down. Stated the pain was so intense that she could not bear it. Likely unbeknownst to her, patient was observed via camera shortly afterwards and as she was sitting upright on her phone in no distress. Patient was able to turn to her bedside table on her leftand with her right hand was able to get what appeared to be either a Kleenex or towel to wipe her face. I did discuss case with the patient's primary care provider, Amy Solorzano, and she notes concern for some drug-seeking behavioras patient has been to numerous hospitals in the past. I have reviewed patient's prior drug screens and that they have been negative for cannabinoids. Patient has been consistent in saying that she is not smoking any marijuana. This does appear to be psychiatric. That has been a concern in some the other institutions as well. Reassurance was provided to the patient and you the patient has not had a direct fluid challenge her inconsistent exam and the fact that she will go from 1 extreme to an being completely comfortable within mere moments indicates to me that there needs not be any additional work-up done while she was here. Patient will be discharged with Augmentin as well as Levaquin. Patient to complete a 2-week course of antibiotics. Patient to follow-up with podiatry. Weight / BMI Weight Weight: 94.2 kg Body Mass Index (BMI) 33.5 ABG / Lab / Microbiology Data 05/06/23 06:05 05/07/23 06:00 Laboratory: Laboratory Results - last 24 hr 05/08/23 16:04: POC Glucose 148 H 05/08/23 22:54: POC Glucose 135 H 05/09/23 06:34: POC Glucose 162 H 05/09/23 10:53: POC Glucose 157 H Microbiology: Microbiology 05/04/23 12:00 Blood Culture (Wb) - Anticubital Left Blood Culture - Final No growth in 5 days. 05/04/23 11:40 Blood Culture (Wb) - Anticubital Left Blood Culture - Final No growth in 5 days. 05/04/23 17:40 Wound - Right Foot Gram Stain - Final 05/04/23 17:40 Wound - Right Foot Wound Culture - Final Streptococcus dysgalactiae dys 05/04/23 17:40 Tissue - Right Foot Gram Stain - Final 05/04/23 17:40 Tissue - Right Foot Wound Culture - Final Streptococcus dysgalactiae equ Staphylococcus epidermidis Staphylococcus hominis hominis 05/04/23 17:40 Wound - Right Foot Gram Stain - Final 05/04/23 17:40 Wound - Right Foot Wound Culture - Final Streptococcus dysgalactiae equ Staphylococcus warneri 05/04/23 12:10 Wound - Right Foot Gram Stain - Final 05/04/23 12:10 Wound - Right Foot Wound Culture - Final Streptococcus dysgalactiae equ Coag Negative Staph Staphylococcus simulans D/C Instructions Discharge Diet: 2000 Calorie Control Diet and - (try to avoid gluten free foods for 2weeks to see if that helps your symptoms. ) Meaningful Use Info Meaningful Use Diagnoses (Choose all that apply): None applicable Discharge Plan Admission Admit Date/Time: 05/04/23 17:57 Primary Reason for Your Visit: gas gangrene right foot. Attending Provider: Rickey Gifford Primary Care Provider: Care Physician,No Primary Consulting Providers: Abdirizak Forrest Instructions Additional Instructions / Restrictions: Non-weight bearing Right leg. Follow-up with podiatry. Given extensive work-up for your abdominal pain. The work-up included CAT scans, ultrasound, EGDs, gastric emptying studies. These have all been unremarkable. It is my feeling as well as other providers that is [facility] is thatthis is certainly exacerbated by some anxiety. [facility] To be beneficial for you to see psychiatry as you have seen psychiatry at other institutions. No marijuana. No narcotics. Discharge Orders/Prescriptions Prescriptions: New acetaminophen 325 mg Tablet 650 mg PO Q6H PRN PRN (Reason: Pain 1-10 Or Fever >100.7) Qty: 0 0RF ondansetron HCl 8 mg tablet 8 mg PO Q8H 5 Days Qty: 15 0RF Rx Instructions: 1st dose 1-2 hr before radiation metoclopramide HCl [Reglan] 5 mg tablet 5 mg PO Q6H PRN (Reason: nausea and vomiting) 3 Days Qty: 20 0RF levofloxacin 750 mg tablet 750 mg PO DAILY Qty: 12 0RF amoxicillin-pot clavulanate 875-125 mg tablet 1 tab PO Q12H Qty: 24 0RF Continued albuterol sulfate [Ventolin HFA] 90 mcg/actuation HFA aerosol inhaler 1 inh INHALATION Q4H insulin glargine [Lantus Solostar U-100 Insulin] 100 unit/mL (3 mL) insulin pen 15 unit SUBCUT BID Patient Comments: inject 20 units subcutaneous twice daily bisacodyl [Dulcolax (bisacodyl)] 10 mg suppository 10 mg [place] DAILY 3 Days Qty: 12 0RF Rx Instructions: Hold for diarrhea dicyclomine 20 mg tablet 20 mg PO TID PRN (Reason: abdominal pain) Qty: 30 0RF hyoscyamine sulfate [Levsin/SL] 0.125 mg tablet, sublingual 0.125 mg PO TID PRN (Reason: abdominal pain) Qty: 10 0RF Discontinued omeprazole 40 mg capsule,delayed release(DR/EC) 40 mg PO BID Qty: 60 2RF Rx Instructions: take two times a day for 8 weeks then once a day Referrals / Follow Up: Abdirizak Forrest DPM [Med Staff - Active Staff] - (Follow-up with Dr. Forrest in private office 1 week postdischarge. Call office for appointment date and time.) Care Physician,No Primary [Primary Care Provider] - Amy Solorzano NP, NP-C [Non-Staff -Ordering Privileges] - Within 2 Weeks Disposition Disposition (needs filled in before D/C Order can be placed): Home, Self Care Charges/Coding Visit Charges Inpatient E&M: 12132 Disch Hosp >30min 05/09/23 1402 <Electronically signed by Rickey Gifford DO> Cosigner Signature (if applicable): CC: YESY Forrest; PATRICE Solorzano; Dr. Rickey Gifford DO; No Primary Care Physician~ Signed [facility] Work Phone: Discharge summary Author Gale Lr [facility] Note Date/Time November 28, 2024 12:31 pm [facility] Medical Records Department [address] [place] [address] Discharge Summary 11/28/24 1203 MR#: [id number] Acct: [id number] Name: GHISLAINE GIVENS Rep #:[id number] : 1990 34 From: Gale Lr DO PCP: BROOKLYN Warren NP-C Statu s:ADM IN Location: [place] [address] Providers Date of Admission: 11/25/24 Date of Discharge: 11/28/24 Primary Care Physician: BROOKLYN Warren NP-C Consultations 11/25/24 15:14 Consult: General Surgery Routine Consulting Provider: Annalise Welch Reason for Consult: severe constipation, stercoral colitis EMERGENT Consult: No MD Notified: Yes Date Notified: 11/25/24 Time Notified: 13:41 Method of Notification: Text Reason For Visit: STERCORAL PROCTOCOLITIS DUE TO SEVERE CONSTIPATION Diagnosis Discharge Diagnosis (1) Colitis: Status: Acute Code(s): K52.9 - Noninfective gastroenteritis and colitis, unspecified (2) Acute proctitis: Status: Acute Code(s): K62.89 - Other specified diseases of anus and rectum (3) Fecal impaction: Status: Acute Code(s): K56.41 - Fecal impaction Medications at Discharge Home Medications insulin glargine 100 unit/mL (3 mL) subcutaneous pen (Lantus Solostar U-100 Insulin) 20 unit subcut BID diabetes 08/12/22 trazodone 300 mg tablet 200 mg PO QHS PRN insomnia 07/16/23 albuterol sulfate 90 mcg/actuation aerosol inhaler 2 puff inhalation Q4H PRN shortness of breath or wheezing 11/25/24 dulaglutide 4.5 mg/0.5 mL subcutaneous pen injector (Trulicity) 4.5 mg subcut SA11/25/24 amoxicillin 875 mg-potassium clavulanate 125 mg tablet 1 tab PO BIDCM 7 days #14tabs 11/28/24 dicyclomine 10 mg/mL intramuscular solution 20 mg (2 mL) IM 4X/DAY #0 mL 11/28/24 polyethylene glycol 3350 17 gram/dose oral powder (ClearLax) 17 g PO DAILY #119 grams 11/28/24 scopolamine base 1 mg over 3 days transdermal patch 1 patch transdermal Q3D #4 ea 11/28/24 tramadol 50 mg tablet 50 mg PO Q8H PRN pain #9 tabs 11/28/24 Hospital Course Operations None Procedures - (CT scan abdomen pelvis x 2) Summary of Care Provided Minutes Spent on Discharge: 37 Hospital Course: Patient is a 34-year-old white female who presented to the emergency department at [facility] on 11/25/2024 with a chief complaint of abdominal pain and constipation. Patient does have a history of diabetes. She stated that she had struggled with constipation over the years and takes laxatives. 3 days prior to presentation she took a laxative due to constipation and subsequently started having diarrhea. She also complained of cramping and was worried that she may have fecal impaction. She also complained of nausea and vomiting. She reported that her abdominal pain was helped by taking walks and getting in the hot shower. She did admit to a history of cannabis use and reported that her last use was probably on Wednesday however she would not 100% certain. Vital signs on presentation showed temperature 96.8, heart rate 112, respiratory 20, blood pressure is 121/91 pulse ox was 99% room air. She had leukocytosis white count of 17.6 hemoglobin was 11 platelets were normal. Chemistry panel was overall unremarkable. UA was not consistent with infection. Acute abdominal series was performed and was consistent with fecal retention inthe colon consistent with constipation and CT of the abdomen pelvis showed fecalimpaction with wall thickening of the distal colon and rectum suggestive of colitis as well as hepatomegaly with fatty infiltration. The patient was admitted to the medical floor with stercoral proctocolitis and overflow diarrheain the setting of severe constipation. General surgery was consulted. She was placed on antibiotics with Zosyn and maintained on this course through the hospitalization. She was also placed on laxative and stool softeners, made n.p.o. and given IV fluids. She had several bowel movements with utilization ofthe stool softener and laxative overnight from 11/26/2024 through 11/27/2024 but was still complaining of nausea and vomiting. This is when I questioned her more about her marijuana use and she admitted the above. She was still complaining of severe abdominal pain so a repeat CT of the abdomen pelvis was performed. 48 hours after admission on 11/27/2024 and showed slight interval improvement in her colitis and fatty infiltration liver with sludge in the gallbladder. No real acute abnormality was noted and her constipation had resolved. Patient took frequent showers when she was hospitalized and walked the hallways without difficulty. On 11/28/2024 I went in to reevaluate her and she appeared comfortable and sleeping when I walked in the room however when sherealized I was there she seemed more uncomfortable started writhing around in bed complaining of severe abdominal pain. We discussed the overall plan of carewith antibiotics, as needed pain medication and as needed scopolamine patch for discharge and general surgery follow-up to close she should be able to be discharged home with the patient reports she was not able to take p.o. I left the room and the monitor was observed. The patient was then identified stickingher fingers down her throat making herself vomit. She was confronted about thisand denied it. When we told her we can see her on the monitor she said I will just fucking leave then. We have advised her to stop smoking marijuana as there is probably a component of cyclic vomiting syndrome. She is to take MiraLAX daily and was written a prescription for antibiotics and all were sent to the pharmacy prior to discharge. She was also given a scopolamine patch to use as needed for nausea and vomiting. She is to call Dr. Torres's office to get outpatient evaluation due to her history of constipation but there is no acute need for colonoscopy while hospitalized. Patient did report some rectal bleeding. Hemoglobin was stable throughout her entire hospital stay and this was never witnessed by nursing. She is also to follow-up with her primary care physician and prior to discharge I was able to discuss the case with her primarynurse practitioner Amy Solorzano. Discharge diagnoses: Acute stercoral colitis Self-induced nausea and vomiting Abdominal pain Fecal impaction-resolved Marijuana induced cyclic vomiting syndrome Leukocytosis DM-2 with hyperglycemia Anxiety Insomnia Asthma Obesity Physical Exam Const alert, oriented x3, no limitations and well nourished; Negative for no apparent distress, average body habitus or healthy appearing Constitutional Narrative: Obese, young middle-aged, white female, lying in bed sleeping when I walk in however after my arrival starts rolling around in bed complaining of severe abdominal pain. Appeared to be comfortable until she realized I was in the room General Appearance: cooperative, comfortable, well kempt and well developed HEENT normocephalic, head/scalp atraumatic, hearing grossly normal bilaterally and moist oral mucous membranes Neck supple Neck Narrative: Neck is short and thick, trachea midline Resp normal respiratory effort, normal air movement, no retractions, no use of accessory muscles and clear to auscultation bilaterally Auscultation: Negative for rales, rhonchi or wheezes Cardio regular rate, regular rhythm, S1 normal heart sound, S2 normal heart sound, no murmurs, no rub, no gallops and no clicks GI normal to inspection, nondistended, normoactive bowel sounds and soft to palpation GI Narrative: Diffusely tender, pain seems out of proportion to clinical exam Extremity no clubbing, cyanosis or edema Extremity Narrative: 2+ pedal and radial pulses Neuro oriented x3, moves all extremities and no focal motor deficits Psych Psych Narrative: Affect is flat, markedly anxious Weight / BMI Weight Weight: 110.705 kg Body Mass Index (BMI) 39.4 ABG / Lab / Microbiology Data 11/28/24 04:50 11/28/24 04:50 Laboratory: Laboratory Results - last 24 hr 11/27/24 12:22: POC Glucose 197 H 11/27/24 16:50: POC Glucose 147 H 11/27/24 23:02: POC Glucose 175 H 11/28/24 04:50: WBC 12.2 H, RBC 4.44, Hgb 12.1, Hct 37.0, MCV 83.3, MCH 27.3, MCHC 32.7, RDW Std Deviation 41.8, RDW Coeff of John 13.7, Plt Count 400, MPV 9.3, Immature Gran % (Auto) 0.800, Neut % (Auto) 49.8, Lymph % (Auto) 43.0 H, Bacon % (Auto) 5.3, Eos % (Auto) 0.5, Baso % (Auto) 0.6, Absolute Neuts (auto) 6.1, Absolute Lymphs (auto) 5.24 H, Nucleated RBC % 0, Sodium 141, Potassium 3.5, Chloride 104, Carbon Dioxide 24.7, Anion Gap 12, BUN 12, Creatinine 1.02, Estim Creat Clear Calc 99.83, Est GFR (MDRD) Non-Af 75, BUN/Creatinine Ratio 12.2, Glucose 134 H, Calcium 7.9 11/28/24 05:10: POC Glucose 127 H Microbiology: Microbiology 11/25/24 13:15 Blood Culture (Wb) - Anticubital Left Blood Culture - Preliminary No growth in 48 hours. 11/25/24 12:16 Blood Culture (Wb) - Anticubital Left Blood Culture - Preliminary No growth in 48 hours. Radiography Diagnostic Testing: Radiology Impression Abdomen/Pelvis CT 11/27/24 08:08 IMPRESSION: Fatty infiltration of the liver. Sludge is seen in the gallbladder lumen. Findings suggestive of colitis involving the rectosigmoid colon. There has beenmild improvement as compared to prior study. Reading Location: [facility] D/C Instructions Discharge Diet: 1800 Calorie Control Diet Discharge Activity: Return to Normal Activity Return to work on: 11/29/24 DC O2, CPAP, BIPAP Needs Home O2 Discharge instructions: No Meaningful Use Info Meaningful Use Meaningful Use Diagnoses (Choose all that apply): None applicable Ischemic Stroke Statin Dosing Therapy Reference: STATIN DOSE THERAPY REFERENCE: * Patients > 75 years receive moderate or high dose statin therapy. * Patients 75 years or YOUNGER should receive HIGH intensity statin dose unless contraindicated. You will be required to document reason for non-treatment if statin daily dose does not meet guidelines. HIGH DOSE STATIN THERAPY DAILY Atorvastatin > than or = to 40 mg Rosuvastatin > than or = to 20 mg Amlodipine + Atorvastatin > than or = to 2.5/40 mg Ezetimibe + Simvastatin 10/80 mg Simvastatin 80mg Discharge Plan Admission Admit Date/Time: 11/25/24 13:38 Primary Reason for Your Visit: Abdominal pain/nausea Attending Provider: Gale Lr Primary Care Provider: Amy Solorzano Consulting Providers: Annalise Welch; Brenda Rao Instructions Additional Instructions / Restrictions: 1. Recommend complete abstinence from marijuana 2. Complete entire course of antibiotics as prescribed 3. Call Dr. Torres's office and get an appointment to be seen as directed Discharge Orders/Prescriptions Prescriptions: New amoxicillin-pot clavulanate 875-125 mg Tablet 1 tab PO BIDCM 7 Days Qty: 14 0RF scopolamine base 1 mg over 3 days Patch 3 Day 1 patch transdermal Q3D Qty: 4 0RF dicyclomine 10 mg/mL Solution 20 mg IM 4X/DAY Qty: 0 0RF polyethylene glycol 3350 [ClearLax] 17 gram/dose powder 17 g PO DAILY Qty: 119 0RF tramadol 50 mg tablet 50 mg PO Q8H PRN (Reason: pain) Qty: 9 0RF Continued insulin glargine [Lantus Solostar U-100 Insulin] 100 unit/mL (3 mL) insulin pen 20 unit SUBCUT BID Patient Comments: PT HAS BEEN TAKING 35-40 UNITS TWICE DAILY trazodone 300 mg tablet 200 mg PO QHS PRN (Reason: insomnia) albuterol sulfate 90 mcg/actuation HFA aerosol inhaler 2 puff INHALATION Q4H PRN (Reason: shortness of breath or wheezing) Trulicity 4.5 mg/0.5 mL pen injector 4.5 mg subcut SA Referrals / Follow Up: Venkatesh Torres DO [Med Staff - Active Staff] - Within 2 Weeks (Please call today or tomorrow to set up appointment) Amy Solorzano, [employer]PER[employer]-C [Primary Care Provider] - In 1 Week Disposition Disposition (needs filled in before D/C Order can be placed): Home, Self Care Charges/Coding Visit Charges Inpatient E&M: 14950 Disch Hosp >30min 11/28/24 1231 <Electronically signed by Gale Lr DO> Cosigner Signature (if applicable): CC: Sara [employer] SUPERVISOR-C Amy Solorzano; Dr. Gale Lr DO~ Signed [facility] Work Phone: evaluation noteNo assessment information available [facility] Work Phone: evaluation note* Diagnosis Onset Date Resolution Status Abdominal pain acute [facility] Work Phone: Evaluation note* Diagnosis Abnormal lung scan- Primary Nonspecific abnormal results of pulmonary system function study Nausea and vomiting, unspecified vomiting type documented in this encounter [facility] note* Diagnosis Acute cough- Primary Mild intermittent asthmatic bronchitis without complication documented in this encounter [facility] note* Diagnosis Onset Date Resolution Status Abdominal pain acute Encounter for pre-employment health screening examination acute [facility] Work Phone: evaluation note* Diagnosis Onset Date Resolution Status Abdominal pain acute Encounter for pre-employment health screening examination acute Cellulitis of foot, right [place] Diabetes acute Diabetic foot infection acut e Leukocytosis acute 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 Work Phone: Evaluation note* Diagnosis Onset Date Resolution Status Cellulitis and abscess of right lower extremity acute Cellulitis of foot, right [place] Diabetic foot infection acut e Osteomyelitis acute Lactic acidosis resolved Acute pyelonephritis acute [facility] Work Phone: Evaluation note* Diagnosis Toe infection- Primary Unspecified local infection of skin and subcutaneous tissue Facial infection Other specified infectious and parasitic diseases History of MRSA infection Personal history of Methicillin resistant Staphylococcus aureus documented in this encounter [facility] note* Diagnosis Facial infection- Primary Other specified infectious and parasitic diseases documented in this encounter [facility] note* Diagnosis Onset Date Resolution Status Acute hypokalemia acute Cannabis abuse acute Diabetes acute Elevated serum creatinine [place] Failure of outpatient treatment acute Intractable nausea and vomiting acute [facility] Work Phone: Evaluation note* Diagnosis Onset Date Resolution Status Acute hypokalemia acute Cannabis abuse acute Diabetes acute Intractable nausea and vomiting acute [facility] Work Phone: Evaluation note* Diagnosis Nausea and vomiting, unspecified vomiting type- Primary Syncope and collapse documented in this encounter [facility] note* Diagnosis Generalized abdominal pain- Primary Abdominal pain, generalized documented in this encounter [facility] note* Diagnosis Chronic nausea- Primary Nausea alone Chronic abdominal pain Abdominal pain, unspecified site documented in this encounter [facility] note* Diagnosis Vomiting, unspecified vomiting type, unspecified whether nausea present- Primary Chronic nausea Nausea alone documented in this encounter [facility] note* Diagnosis Chronic abdominal pain- Primary Abdominal pain, unspecified [facility] SOB (shortness of breath)- Primary Shortness of breath Abdominal pain, unspecified abdominal location [facility] Diagnosis Onset Date Resolution Status Acute hypokalemia acute Cannabis abuse acute Diabetes acute Intractable nausea and vomiting acute Diabetes acute Diabetic foot infection acut e Leukocytosis acute [facility] Work Phone: Evaluation note* Diagnosis Onset Date Resolution Status Acute hypokalemia acute Cannabis abuse acute Diabetes acute Intractable nausea and vomiting acute Diabetes acute Diabetic foot infection acut e Gas gangrene acute Leukocytosis acute Nausea and vomiting acute Tightness of right heel cord acute Type 2 diabetes mellitus with peripheral neuropathy acute Non-pressure chronic ulcer o f other part of right foot with fat layer exposed chronic [facility] Work Phone: Evaluation note* Diagnosis Onset Date Resolution Status Diabetic foot infection reso lved Gas gangrene resolved Leukocytosis resolved Non-pressure chronic ulcer o f other part of right foot with fat layer exposed resolved Tightness of right heel cord resolved [facility] Work Phone: Evaluation note* Diagnosis Pain of right eye- Primary Pain in or around eye [facility] Diagnosis Onset Date Resolution Status Diabetic foot infection reso lved Gas gangrene resolved Leukocytosis resolved Non-pressure chronic ulcer o f other part of right foot with fat layer exposed resolved Tightness of right heel cord resolved Acute painful diabetic polyneuropathy acute Other acute osteomyelitis, right ankle and foot acute Non-pressure chronic ulcer o f other part of right foot with fat layer exposed resolved [facility] Work Phone: Evaluation note* Diagnosis Onset Date Resolution Status Acute painful diabetic polyneuropathy acute Other acute osteomyelitis, right ankle and foot acute Non-pressure chronic ulcer o f other part of right foot with fat layer exposed resolved [facility] Work Phone: Evaluation note* Diagnosis Nausea- Primary Nausea alone documented in this encounter [facility]* Diagnosis Type II or unspecified type diabetes mellitus without mention of complication, uncontrolled- Primary Morbid obesity with BMI of 40.0-44.9, adult (HCC) Morbid obesity Elevated BP Elevated blood pressure reading without diagnosis of hypertension Acute cough Mild intermittent asthmatic bronchitis without complication documented in this encounter [facility] note* Diagnosis Type II or unspecified type diabetes mellitus without mention of complication, uncontrolled- Primary Morbid obesity with BMI of 40.0-44.9, adult (HCC) Morbid obesity Elevated BP Elevated blood pressure reading without diagnosis of hypertension Cough documented in this [facility]* Diagnosis Type II or unspecified type diabetes mellitus without mention of complication, uncontrolled- Primary Morbid obesity with BMI of 40.0-44.9, adult (HCC) Morbid obesity Elevated BP Elevated blood pressure reading without diagnosis of hypertension Bronchopneumonia- Primary Bronchopneumonia, organism unspecified Mild intermittent asthma, uncomplicated Unspecified asthma documented in this encounter [facility] note* Diagnosis Type II or unspecified type diabetes mellitus without mention of complication, uncontrolled- Primary Morbid obesity with BMI of 40.0-44.9, adult (HCC) Morbid obesity Elevated BP Elevated blood pressure reading without diagnosis of hypertension Acute cough- Primary Acute cough documented in this encounter [facility] note* Diagnosis Type II or unspecified type diabetes mellitus without mention of complication, uncontrolled- Primary Morbid obesity with BMI of 40.0-44.9, adult (HCC) Morbid obesity Elevated BP Elevated blood pressure reading without diagnosis of hypertension Acute cough documented in this encounter [facility] note* Diagnosis Onset Date Resolution Status Admit Date Acute proctitis acute November 25, 2024 1:38pm Colitis acute November 25, 2024 1:38pm Fecal impaction acute November 25, 2024 1:38pm [facility] Work Phone: History and physical note Author Dr. Urbina [facility] August 12, 2022 9:20pm Note Date/Time August 12, 2022 8 :09pm [facility] Medical Records Department [address] [place] [address] H&P Exam - Hospitalist 08/12/222008 MR#: [id number] Acct: [id number] Name: GHISLAINE GIVENS Rep #:[id number] : 1990 32 From: Valencia Urbina MD PCP: Dr. Sophy Gibbons Status:ADM IN Location: [facility] [id number] HPI - General General Date of Admission: 08/12/22 Date of Service: 08/12/22 Chief Complaint: Hyperglycemia, tachycardia HPI Narrative GHISLAINE GIVENS, is a 32 F who presents with the above. Patient has past medicalhistory of type II DM, recent discharge from the hospital on 06/29/22 for right diabetic foot infection status post right toe amputation. Patient was referred to the emergency room from [facility] for hyperglycemia and tachycardia. Patient denies any fever or chills. Her wound in the right foot is healed. She stated that at home, her blood sugar was 240 in the morning. She denied any dizziness or palpitations or chest pain or shortness of breath. She admits to epigastric discomfort, nausea and an episode of vomiting in the emergency room. She denied any flank pain or dysuria or lower abdominal discomfort Vital in the ED showed blood pressure 129/86, heart rate 137, respiratory rate 16, temperature 97.5 F, oxygen sat 98% on room air. WBC 18.9, with neutrophilia, hemoglobin 11.4, platelet count 453, sodium 130 potassium 3.9, chloride 95, bicarbonate 23, BUN 8, creatinine 1.11, previous creatinine 0.71, blood sugar is 230, magnesium is 1.6. UA is clear, ketones positive, glucose positive, nitrate negative, leukocyte esterase 100, bacteria 0, WBC count 10-25.Acetone negative. Admitting chest x-ray is unremarkable. 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 Valencia Urbina MD) Anxiety Asthma Constipation Depression Diabetes Diabetes mellitus with diabetic polyneuropathy Hypertension Type 2 diabetes mellitus with foot ulcer Home Medications albuterol sulfate 90 mcg/actuation aerosol inhaler (Ventolin HFA) 1 inh inhalation Q4H SOB 04/06/22 [History Last Taken 06/24/22] docusate sodium 100 mg capsule (Dulcolax Stool Softener (docusate)) 100 mg PO BID PRN stool 04/06/22 [History Last Taken 06/24/22] metformin 500 mg tablet 1,000 mg PO BID DM 06/24/22 [History Last Taken 06/24/22] insulin glargine 100 unit/mL (3 mL) subcutaneous pen (Lantus Solostar U-100 Insulin) 15 unit subcut BID 08/12/22 [History Last Taken Unknown] Allergy/AdvReac Type Severity Reaction Status Date / Time No Known Allergies Allergy Verified 08/12/22 15:27 Family History Other Bleeding disorder Cancer Diabetes Hypertension Surgical History Hx of foot surgery Social History Smoking Status: Current some day smoker tobacco type: cigarettes alcohol intake: never substance use type: does not use what type of physical activity do you participate in: none ROS ROS Narrative Constitutional:Denies: Anorexia, Chills, Fever, Night Sweats, Weight Change Eyes: Denies: Blurred vision, Cataracts, Conjunctivae Inflammation, Pain, Redness, Vision Change HEENT: Denies: Difficulty Hearing, Difficulty Swallowing, Head Aches, Hearing Changes, Sinus Congestion, Sinus Drainage Cardiovascular: Denies: Chest Pain, Orthopnea, Palpitations Respiratory: Denies: Cough, Shortness of breath at rest, Sputum production Gastrointestinal: See HPI Genitourinary: Denies: Dysuria Musculoskeletal: Denies: Joint Pain, Joint stiffness, Joint swelling, Joint Tenderness Skin: Denies: Rash, Wounds Neurological: Denies: Numbness, Tingling, Focal weakness Vital Signs Vital Signs Vital Signs: 08/12/22 15:27 08/12/22 17:34 Temperature 97.5 F L Temperature Source Temporal Pulse Rate 137 H Respiratory Rate 16 Respiratory Pattern Normal Blood Pressure 129/86 H Blood Pressure Mean 100 Pulse Ox 98 Oxygen Delivery Method Room Air Weight Weight: 106.594 kg Body Mass Index (BMI) 37.9 Physical Exam Narrative General: Alert, Oriented x3, Cooperative, No apparent distress HEENT: Atraumatic, PERRLA, EOMI, Normocephalic Oral: Moist Mucosa Neck: Supple Lungs: Normal air movement, Diminished Cardiovascular: Regular rate, Regular Rhythm, Normal S1, Normal S2, No murmurs Abdomen: Bowel Sounds Present, Soft, Non Tender, Non-Distended, No Hepato-splenomegaly Extremities: No edema Skin: No rashes Neurological: Cranial nerves II-XII grossly intact, Neuro grossly intact Psych/Mental Status: Normal Affect, Appropriate Results Lab / Micro Data Result Diagrams: 08/12/22 16:22 08/12/22 16:22 Labs: Laboratory Results - last 24 hr 08/12/22 16:22: WBC 18.9 H, RBC 4.35, Hgb 11.4 L, Hct 34.0 L, MCV 78.2 L, MCH 26.2 L, MCHC 33.5, RDW Std Deviation 36.9, RDW Coeff of John 12.9, Plt Count 453 H, MPV 9.3, Immature Gran % (Auto) 1.000 H, Neut % (Auto) 69.8, Lymph % (Auto) 20.1, Bacon % (Auto) 8.7, Eos % (Auto) 0.1, Baso % (Auto) 0.3, Absolute Neuts (auto) 13.2 H, Absolute Lymphs (auto) 3.81, Nucleated RBC % 0, Differential Comment SCANNED, Diff Path Review November foll 08/12/22 16:22: Sodium 130 L, Potassium 3.9, Chloride 95 L, Carbon Dioxide 23.0,Anion Gap 12, BUN 8, Creatinine 1.11 H, Estim Creat Clear Calc 69.38, Est GFR (MDRD) Af Amer 74, Est GFR (MDRD) Non-Af 61, BUN/Creatinine Ratio 7.2 L, [id number] H, Calcium 9.6, Magnesium 1.6, Total Bilirubin 0.50, AST 20, ALT 13, Alkaline Phosphatase 136 H, Troponin I High Sens 6, Total Protein 9.2 H, Albumin2.9 L, Globulin 6.3 H, Albumin/Globulin Ratio 0.5 L 08/12/22 16:22: Acetone Level NEGATIVE 08/12/22 16:22: Urine Color Yellow, Urine Clarity Clear, Urine pH 6.0, Ur Specific [place] 1.010, Urine Protein 100 H, Urine Glucose (UA) 50 H, Urine Ketones 15 H, Urine Occult Blood 150 H, Urine Nitrite Negative, Urine Bilirubin Negative, Urine Urobilinogen Normal, Ur Leukocyte Esterase 100 H, Urine RBC 0 SEEN, Urine WBC 10-25 SEEN, Ur Squamous Epith Cells 0-5 SEEN, Urine Bacteria 0 SEEN, Urine Mucus 0 SEEN 08/12/22 16:30: POC Glucose 238 H 08/12/22 17:32: POC Glucose 207 H 08/12/22 18:50: POC Glucose 203 H Radiology Impression Chest X-Ray 08/12/22 17:18 IMPRESSION: Normal x-ray examination of the chest. 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 Multiple subcentimeter retroperitoneal nodes of uncertain etiology but stable since previous study most likely inflammatory Electronically Signed: Andres Ramos MD at 18:42 EST , Assessment & Plan Assessment/Plan (1) Acute pyelonephritis: PLAN: Plan 1. Sepsis secondary to Acute right pyelonephritis, Patient presented with tachycardia, heart rate in the 130s, leukocytosis, WBC count more than 18 Multilobular nephronia of the right kidney seen on CT of the abdomen and pelvis UA however is not too impressive for acute UTI and patient is asymptomatic Started on IV ceftriaxone, urine culture sent from the ED Admits to PCU, continue on IV fluids, IV ceftriaxone Will obtain kidney, bladder ultrasound 2. Hypomagnesemia, magnesium is 1.6, replace, recheck in a.m. 3. Type II DM, last HbA1c in June 2022 was 10.6, insulin-dependent Continue on Lantus, blood glucose checks with insulin sliding scale 4. Dehydration, admitting creatinine is 1.11, previous creatinine 0.71 Continue on IV fluids, recheck blood work in a.m. 5. Hyponatremia, likely related to dehydration, will recheck labs in a.m. 6. DVT PPx -low risk, early ambulation recommended Total time spent: 55 minutes of which a greater time was spent in reviewing patient's chart,laboratory investigations, imaging, taking of history and physical examining patient as well as discussing with emergency room physician. Charges/Coding Visit Charges Inpatient E&M: 71217 Init Hosp L2 08/12/222119 <Electronically signed by Valencia Urbina MD> Cosigner Signature (if applicable): CC: Dr. Valencia Urbina MD; Dr. Sophy Gibbons~ Signed [facility] Work Phone: Hospital course Narrative No data available for this section [facility] Hospital Discharge instructions Additional Instructions Avoid marijuana use. Use the capsaicin cream every 6 hours as needed. Medication prescribed to use as needed. Continue oral fluids at home for hydration. Follow-up with your doctor.[facility] Work Phone: Hospital Discharge instructions Additional Instructions Please decrease your marijuana use. Please maintain hydration, use antinausea medicine as needed.[facility] Work Phone: Hospital Discharge instructions Additional Instructions Please fill the prescriptions that were prescribed to you from [facility] to help control your nausea and vomiting. Based on their CAT scan showing potential gallbladder or fallopian tube issues please have the ultrasounds obtained that were ordered on an outpatient basis this evening. If you have any further concerns [facility] Work Phone: Hospital Discharge instructions Additional Instructions Your CT scan showed inflammation of the rectum consistent with acute proctitis. This can be secondary to infection or just inflammation but because of your diabetes and elevation of your white count take the antibiotic to resolve an infectious cause. If you have any further concerns please [facility] Work Phone: Hospital Discharge instructions Additional Instructions I would recommend gentle massage of the tear duct. Warm compresses as discussed. I would highly encourage ophthalmologic follow-up. Monitor for worsening symptoms return if needed.[facility] Work Phone: Hospital Discharge instructions Additional Instructions 1. Please keep your surgical dressing clean dry and intact. Do not remove. Do not get it wet. 2. Continue rest ice and elevate per your postoperative instructions that were given to you at the day of your surgical consultation while in office. 3. Please take all pain medication and prescriptions as written. 4. If you are a diabetic patient please continue tight glucose control while in the postoperative phase. 5. Please continue to follow-up with all your doctors visits prior and after surgery. 6. Please reach out to Dr. Forrest, through the paging system in the hospital or private office with any questions or concerns. 7. Thank you for letting me be involved in your surgical care![facility] Work Phone: Reason for referral (narrative)* Diagnostic Procedure Only (Routine) - New Request Specialty Diagnoses / Procedures Referred By Contac t Referred To Contact MOLECULAR [facility] FUNCTIONAL IMAGING Diagnoses Nausea Procedures NM GASTRIC EMPTYING SOLID GASTRIC EMPTYING STUDY Almita Kelly PA-C [address] [place] [address] Molecular & Functional Imaging [address] [place] [address] Referral ID Status Reason Start Date Expiration Date Visits Requested Visits Authorized [id number] New Request Auto-Generat ed Referral 03/02/2023 03/31/2024 1 1 [facility] for referral (narrative)No reason for referral information availableWMercy [facility] Work Phone: Chief Complaint and Reason for Visit Chief Complaint N/V/D abscess Chief Complaint N/V/D abscess constipation, no bm x1 week Chief Complaint N/V/D abscess constipation, no bm x1 week Rt foot infection Chief Complaint abscess constipation, no bm x1 week Rt foot infection RIGHT FACIAL EDEMA Chief Complaint abscess constipation, no bm x1 week Rt foot infection RIGHT FACIAL EDEMA CONSTIPATION Chief Complaint abscess constipation, no bm x1 week Rt foot infection RIGHT FACIAL EDEMA CONSTIPATION ABD PAIN Chief Complaint abscess constipation, no bm x1 week Rt foot infection RIGHT FACIAL EDEMA CONSTIPATION ABD PAIN abd Chief Complaint abscess constipation, no bm x1 week Rt foot infection RIGHT FACIAL EDEMA CONSTIPATION ABD PAIN abd H FU E ORDER abd pain Reason for Visit Abdominal pain Chief Complaint RIGHT FACIAL EDEMA CONSTIPATION ABD PAIN abd H FU E ORDER abd pain PE PHYSICAL/[place] cellulitis Reason for Visit Abdominal pain Encounter for pre-employment health screening examination Chief Complaint RIGHT FACIAL EDEMA CONSTIPATION ABD PAIN abd H FU E ORDER abd pain PE PHYSICAL/[place] cellulitis Rt foot infection DIABETIC FOOT INFECTION, CELLULITIS Reason for Visit Abdominal pain Encounter for pre-employment health screening examination Cellulitis of foot, right Diabetes Diabetic foot infection Leukocytosis Chief Complaint RIGHT FACIAL EDEMA CONSTIPATION ABD PAIN abd H FU E ORDER abd pain PE PHYSICAL/[place] cellulitis DIABETIC FOOT INFECTION Rt foot infection DIABETIC FOOT INFECTION DIABETIC FOOT INFECTION DIABETIC FOOT INFECTION Reason for Visit Abdominal pain Encounter for pre-employment health screening examination Cellulitis and abscess of right lower extremity Cellulitis of foot, right Diabetes Diabetes mellitus with diabetic polyneuropathy Diabetic foot infection Leukocytosis Osteomyelitis Type 2 diabetes mellitus with foot ulcer Non-pressure chronic ulcer of other part of right foot with necrosis of muscle Chief Complaint RIGHT FACIAL EDEMA CONSTIPATION ABD PAIN abd H FU E ORDER abd pain PE PHYSICAL/[place] cellulitis DIABETIC FOOT INFECTION Rt foot infection DIABETIC FOOT INFECTION DIABETIC FOOT INFECTION DIABETIC FOOT INFECTION HALF-WAY LABWORK Reason for Visit Abdominal pain Encounter for pre-employment health screening examination Cellulitis and abscess of right lower extremity Cellulitis of foot, right Diabetes Diabetes mellitus with diabetic polyneuropathy Diabetic foot infection Leukocytosis Osteomyelitis Type 2 diabetes mellitus with foot ulcer Non-pressure chronic ulcer of other part of right foot with necrosis of muscle Chief Complaint RIGHT FACIAL EDEMA CONSTIPATION ABD PAIN abd H FU E ORDER abd pain PE PHYSICAL/[place] cellulitis DIABETIC FOOT INFECTION Rt foot infection DIABETIC FOOT INFECTION DIABETIC FOOT INFECTION DIABETIC FOOT INFECTION HALF-WAY LABWORK HALF-WAY LAB WORK Reason for Visit Abdominal pain Encounter for pre-employment health screening examination Cellulitis and abscess of right lower extremity Cellulitis of foot, right Diabetes Diabetes mellitus with diabetic polyneuropathy Diabetic foot infection Leukocytosis Osteomyelitis Type 2 diabetes mellitus with foot ulcer Non-pressure chronic ulcer of other part of right foot with necrosis of muscle Chief Complaint RIGHT FACIAL EDEMA CONSTIPATION ABD PAIN abd H FU E ORDER abd pain PE PHYSICAL/[place] cellulitis DIABETIC FOOT INFECTION Rt foot infection DIABETIC FOOT INFECTION DIABETIC FOOT INFECTION DIABETIC FOOT INFECTION HALF-WAY [employer]WORK HALF-WAY LAB WORK HALF-WAY LABWORK CMP/CBC Reason for Visit Abdominal pain Encounter for pre-employment health screening examination Cellulitis and abscess of right lower extremity Cellulitis of foot, right Diabetes Diabetes mellitus with diabetic polyneuropathy Diabetic foot infection Leukocytosis Osteomyelitis Type 2 diabetes mellitus with foot ulcer Non-pressure chronic ulcer of other part of right foot with necrosis of muscle Chief Complaint cellulitis DIABETIC FOOT INFECTION Rt foot infection DIABETIC FOOT INFECTION DIABETIC FOOT INFECTION DIABETIC FOOT INFECTION HALF-WAY [employer]WORK HALF-WAY LAB WORK HALF-WAY LABWORK CMP/CBC DIABETIC FOOT ULCER Reason for Visit Cellulitis and absce ss of right lower extremity Cellulitis of foot, right Diabetes Diabetes mellitus with diabetic polyneuropathy Diabetic foot infection Leukocytosis Osteomyelitis Type 2 diabetes mellitus with foot ulcer Non-pressure chronic ulcer of other part of right foot with necrosis of muscle Cellulitis and abscess of right lower extremity Diabetes mellitus with diabetic polyneuropathy Diabetic foot infection Lactic acidosis Osteomyelitis Chief Complaint cellulitis DIABETIC FOOT INFECTION Rt foot infection DIABETIC FOOT INFECTION DIABETIC FOOT INFECTION DIABETIC FOOT INFECTION HALF-WAY LABWORK HALF-WAY LAB WORK HALF-WAY LABWORK CMP/CBC DIABETIC FOOT ULCER Reason for Visit Cellulitis and absce ss of right lower extremity Cellulitis of foot, right Diabetes Diabetes mellitus with diabetic polyneuropathy Diabetic foot infection Leukocytosis Osteomyelitis Type 2 diabetes mellitus with foot ulcer Non-pressure chronic ulcer of other part of right foot with necrosis of muscle Cellulitis and abscess of right lower extremity Cellulitis of foot, right Diabetes mellitus with diabetic polyneuropathy Diabetic foot infection Lactic acidosis Osteomyelitis Type 2 diabetes mellitus with foot ulcer Chief Complaint cellulitis DIABETIC FOOT INFECTION Rt foot infection DIABETIC FOOT INFECTION DIABETIC FOOT INFECTION DIABETIC FOOT INFECTION HALF-WAY LABWORK HALF-WAY LAB WORK HALF-WAY LABWORK CMP/CBC DIABETIC FOOT ULCER DIAULCER DIAULCER DIAULCER DIAULCER DIAULCER Reason for Visit Cellulitis and absce ss of right lower extremity Cellulitis of foot, right Diabetes Diabetes mellitus with diabetic polyneuropathy Diabetic foot infection Leukocytosis Osteomyelitis Type 2 diabetes mellitus with foot ulcer Non-pressure chronic ulcer of other part of right foot with necrosis of muscle Cellulitis and abscess of right lower extremity Cellulitis of foot, right Diabetes mellitus with diabetic polyneuropathy Diabetic foot infection Lactic acidosis Osteomyelitis Type 2 diabetes mellitus with foot ulcer Chief Complaint HALF-WAY LABWORK CMP/CBC DIABETIC FOOT ULCER DIAULCER DIAULCER DIAULCER DIAULCER DIAULCER ACUTE PYELONEPHRITIS ACUTE PYELONEPHRITIS Reason for Visit Cellulitis and absce ss of right lower extremity Cellulitis of foot, right Diabetic foot infection Osteomyelitis Lactic acidosis Acute pyelonephritis Chief Complaint HALF-WAY LABWORK CMP/CBC DIABETIC FOOT ULCER DIAULCER DIAULCER DIAULCER DIAULCER DIAULCER ACUTE PYELONEPHRITIS ACUTE PYELONEPHRITIS ACUTE PYELONEPHRITIS ACUTE PYELONEPHRITIS Reason for Visit Cellulitis and absce ss of right lower extremity Cellulitis of foot, right Diabetic foot infection Osteomyelitis Lactic acidosis Acute pyelonephritis Chief Complaint INFECTION abd pain Chief Complaint INFECTION abd pain N/V, ABD PAIN Chief Complaint INFECTION abd pain N/V, ABD PAIN NAUSEA/VOMITING Chief Complaint INFECTION abd pain N/V, ABD PAIN NAUSEA/VOMITING N/V Chief Complaint INFECTION abd pain N/V, ABD PAIN NAUSEA/VOMITING N/V NV INTRACTABLE NAUSEA VOMITING, HYPOKALEMIA INTRACTABLE NAUSEA VOMITING, HYPOKALEMIA Reason for Visit Acute hypokalemia Cannabis abuse Diabetes Elevated serum creatinine Failure of outpatient treatment Intractable nausea and vomiting Chief Complaint INFECTION abd pain N/V, ABD PAIN NAUSEA/VOMITING N/V NV INTRACTABLE NAUSEA VOMITING, HYPOKALEMIA INTRACTABLE NAUSEA VOMITING, HYPOKALEMIA Reason for Visit Acute hypokalemia Cannabis abuse Diabetes Intractable nausea and vomiting Chief Complaint INFECTION abd pain N/V, ABD PAIN NAUSEA/VOMITING N/V NV INTRACTABLE NAUSEA VOMITING, HYPOKALEMIA INTRACTABLE NAUSEA VOMITING, HYPOKALEMIA N/V Reason for Visit Acute hypokalemia Cannabis abuse Diabetes Intractable nausea and vomiting Chief Complaint INFECTION abd pain N/V, ABD PAIN NAUSEA/VOMITING N/V NV INTRACTABLE NAUSEA VOMITING, HYPOKALEMIA INTRACTABLE NAUSEA VOMITING, HYPOKALEMIA N/V ABD PAIN Reason for Visit Acute hypokalemia Cannabis abuse Diabetes Intractable nausea and vomiting Chief Complaint INFECTION abd pain N/V, ABD PAIN NAUSEA/VOMITING N/V NV INTRACTABLE NAUSEA VOMITING, HYPOKALEMIA INTRACTABLE NAUSEA VOMITING, HYPOKALEMIA N/V ABD PAIN WOUND Abdominal pain Reason for Visit Acute hypokalemia Cannabis abuse Diabetes Intractable nausea and vomiting Chief Complaint INFECTION abd pain N/V, ABD PAIN NAUSEA/VOMITING N/V NV INTRACTABLE NAUSEA VOMITING, HYPOKALEMIA INTRACTABLE NAUSEA VOMITING, HYPOKALEMIA N/V ABD PAIN WOUND Abdominal pain ABD Reason for Visit Acute hypokalemia Cannabis abuse Diabetes Intractable nausea and vomiting Chief Complaint abd pain N/V, ABD PAIN NAUSEA/VOMITING N/V NV INTRACTABLE NAUSEA VOMITING, HYPOKALEMIA INTRACTABLE NAUSEA VOMITING, HYPOKALEMIA N/V ABD PAIN WOUND Abdominal pain ABD ABD PAIN abd pain SOB WOUND DIABETIC FOOT INFECTION Reason for Visit Acute hypokalemia Cannabis abuse Diabetes Intractable nausea and vomiting Diabetes Diabetic foot infection Leukocytosis Chief Complaint N/V, ABD PAIN NAUSEA/VOMITING N/V NV INTRACTABLE NAUSEA VOMITING, HYPOKALEMIA INTRACTABLE NAUSEA VOMITING, HYPOKALEMIA N/V ABD PAIN WOUND Abdominal pain ABD ABD PAIN abd pain SOB WOUND RIGHT FOOT WOUND RIGHT FOOT WOUND RIGHT FOOT WOUND RIGHT FOOT WOUND RIGHT FOOT WOUND RIGHT FOOT WOUND Reason for Visit Acute hypokalemia Cannabis abuse Diabetes Intractable nausea and vomiting Diabetes Diabetic foot infection Gas gangrene Leukocytosis Nausea and vomiting Tightness of right heel cord Type 2 diabetes mellitus with peripheral neuropathy Non-pressure chronic ulcer of other part of right foot with fat layer exposed Chief Complaint N/V ABD PAIN WOUND Abdominal pain ABD ABD PAIN abd pain SOB WOUND RIGHT FOOT WOUND RIGHT FOOT WOUND RIGHT FOOT WOUND RIGHT FOOT WOUND RIGHT FOOT WOUND RIGHT FOOT WOUND Reason for Visit Diabetic foot infect ion Gas gangrene Leukocytosis Non-pressure chronic ulcer of other part of right foot with fat layer exposed Tightness of right heel cord Chief Complaint ABD ABD PAIN abd pain SOB WOUND RIGHT FOOT WOUND RIGHT FOOT WOUND RIGHT FOOT WOUND RIGHT FOOT WOUND RIGHT FOOT WOUND RIGHT FOOT WOUND NAUSEA/VOMITING ABD PAIN NV ABD Reason for Visit Diabetic foot infect ion Gas gangrene Leukocytosis Non-pressure chronic ulcer of other part of right foot with fat layer exposed Tightness of right heel cord Chief Complaint ABD ABD PAIN abd pain SOB WOUND RIGHT FOOT WOUND RIGHT FOOT WOUND RIGHT FOOT WOUND RIGHT FOOT WOUND RIGHT FOOT WOUND RIGHT FOOT WOUND NAUSEA/VOMITING ABD PAIN NV ABD ABD eye Reason for Visit Diabetic foot infect ion Gas gangrene Leukocytosis Non-pressure chronic ulcer of other part of right foot with fat layer exposed Tightness of right heel cord Chief Complaint ABD PAIN abd pain SOB WOUND RIGHT FOOT WOUND RIGHT FOOT WOUND RIGHT FOOT WOUND RIGHT FOOT WOUND RIGHT FOOT WOUND RIGHT FOOT WOUND NAUSEA/VOMITING ABD PAIN NV ABD ABD eye ABD Right foot transmetatarsal amputati Reason for Visit Diabetic foot infect ion Gas gangrene Leukocytosis Non-pressure chronic ulcer of other part of right foot with fat layer exposed Tightness of right heel cord Acute painful diabetic polyneuropathy Other acute osteomyelitis, right ankle and foot Non-pressure chronic ulcer of other part of right foot with fat layer exposed Chief Complaint Right foot transmeta tarsal amputati Unspecified injury of right Achilles tendon, initi Reason for Visit Acute painful diabet ic polyneuropathy Other acute osteomyelitis, right ankle and foot Non-pressure chronic ulcer of other part of right foot with fat layer exposed Chief Complaint Abdominal pain ABD ABD PAIN abd pain SOB WOUND RIGHT FOOT WOUND RIGHT FOOT WOUND RIGHT FOOT WOUND RIGHT FOOT WOUND RIGHT FOOT WOUND RIGHT FOOT WOUND NAUSEA/VOMITING Reason for Visit Diabetic foot infect ion Gas gangrene Leukocytosis Non-pressure chronic ulcer of other part of right foot with fat layer exposed Tightness of right heel cord Chief Complaint ABD ABD PAIN abd pain SOB WOUND RIGHT FOOT WOUND RIGHT FOOT WOUND RIGHT FOOT WOUND RIGHT FOOT WOUND RIGHT FOOT WOUND RIGHT FOOT WOUND NAUSEA/VOMITING ABD PAIN Reason for Visit Diabetic foot infect ion Gas gangrene Leukocytosis Non-pressure chronic ulcer of other part of right foot with fat layer exposed Tightness of right heel cord Chief Complaint ABD ABD PAIN abd pain SOB WOUND RIGHT FOOT WOUND RIGHT FOOT WOUND RIGHT FOOT WOUND RIGHT FOOT WOUND RIGHT FOOT WOUND RIGHT FOOT WOUND NAUSEA/VOMITING ABD PAIN NV Reason for Visit Diabetic foot infect ion Gas gangrene Leukocytosis Non-pressure chronic ulcer of other part of right foot with fat layer exposed Tightness of right heel cord Chief Complaint Admit Date PVD, BILAT LEG PAIN *WC PROTOCOL* October 25, 2024 7:34am Chief Complaint Admit Date PVD, BILAT LEG PAIN *WC PROTOCOL* October 25, 2024 7:34am STERCORAL PROCTOCOLITIS DUE TO SEVERE CO NSTIPATION November 25, 2024 1:38pm Reason for Visit Admit Date Acute proctitis November 25, 2024 1:38p m Colitis November 25, 2024 1:38p m Fecal impaction November 25, 2024 1:38p m Chief Complaint Admit Date PVD, BILAT LEG PAIN *WC PROTOCOL* October 25, 2024 7:34am STERCORAL PROCTOCOLITIS DUE TO SEVERE CO NSTIPATION November 25, 2024 1:38pm STERCORAL PROCTOCOLITIS DUE TO SEVERE CO NSTIPATION November 25, 2024 8:51pm STERCORAL PROCTOCOLITIS DUE TO SEVERE CO NSTIPATION November 26, 2024 7:41am STERCORAL PROCTOCOLITIS DUE TO SEVERE CO NSTIPATION November 26, 2024 9:09am STERCORAL PROCTOCOLITIS DUE TO SEVERE CO NSTIPATION November 27, 2024 7:59am STERCORAL PROCTOCOLITIS DUE TO SEVERE CO NSTIPATION November 27, 2024 8:45am STERCORAL PROCTOCOLITIS DUE TO SEVERE CO NSTIPATION November 28, 2024 7:57am STERCORAL PROCTOCOLITIS DUE TO SEVERE CO NSTIPATION November 28, 2024 12:03pm Reason for Visit Admit Date Abdominal pain November 25, 2024 1:38p m Acute proctitis November 25, 2024 1:38p m Colitis November 25, 2024 1:38p m Diabetes November 25, 2024 1:38p m Fecal impaction November 25, 2024 1:38p m Nausea & vomiting November 25, 2024 1:38p m Chief Complaint Admit Date PVD, BILAT LEG PAIN *WC PROTOCOL* October 25, 2024 7:34am PAIN IN LEGS October 25, 2024 8:0 6am STERCORAL PROCTOCOLITIS DUE TO SEVERE CO NSTIPATION November 25, 2024 1:38pm STERCORAL PROCTOCOLITIS DUE TO SEVERE CO NSTIPATION November 25, 2024 8:51pm STERCORAL PROCTOCOLITIS DUE TO SEVERE CO NSTIPATION November 26, 2024 7:41am STERCORAL PROCTOCOLITIS DUE TO SEVERE CO NSTIPATION November 26, 2024 9:09am STERCORAL PROCTOCOLITIS DUE TO SEVERE CO NSTIPATION November 27, 2024 7:59am STERCORAL PROCTOCOLITIS DUE TO SEVERE CO NSTIPATION November 27, 2024 8:45am STERCORAL PROCTOCOLITIS DUE TO SEVERE CO NSTIPATION November 28, 2024 7:57am STERCORAL PROCTOCOLITIS DUE TO SEVERE CO NSTIPATION November 28, 2024 12:03pm Constipation December 13, 2024 7:52a m E-ORDER December 13, 2024 9:10a m Reason for Visit Admit Date Abdominal pain November 25, 2024 1:38p m Acute proctitis November 25, 2024 1:38p m Colitis November 25, 2024 1:38p m Nausea & vomiting November 25, 2024 1:38p m Fecal impaction November 25, 2024 1:38p m Diabetes November 25, 2024 1:38p m Colitis December 13, 2024 7:52a m Nausea & vomiting December 13, 2024 7:52a m Constipation December 13, 2024 7:52a m Chief Complaint Admit Date PVD, BILAT LEG PAIN *WC PROTOCOL* October 25, 2024 7:34am PAIN IN LEGS October 25, 2024 8:0 6am STERCORAL PROCTOCOLITIS DUE TO SEVERE CO NSTIPATION November 25, 2024 1:38pm STERCORAL PROCTOCOLITIS DUE TO SEVERE CO NSTIPATION November 25, 2024 8:51pm STERCORAL PROCTOCOLITIS DUE TO SEVERE CO NSTIPATION November 26, 2024 7:41am STERCORAL PROCTOCOLITIS DUE TO SEVERE CO NSTIPATION November 26, 2024 9:09am STERCORAL PROCTOCOLITIS DUE TO SEVERE CO NSTIPATION November 27, 2024 7:59am STERCORAL PROCTOCOLITIS DUE TO SEVERE CO NSTIPATION November 27, 2024 8:45am STERCORAL PROCTOCOLITIS DUE TO SEVERE CO NSTIPATION November 28, 2024 7:57am STERCORAL PROCTOCOLITIS DUE TO SEVERE CO NSTIPATION November 28, 2024 12:03pm Constipation December 13, 2024 7:52a m Chief Complaint Admit Date PVD, BILAT LEG PAIN *WC PROTOCOL* October 25, 2024 7:34am PAIN IN LEGS October 25, 2024 8:0 6am STERCORAL PROCTOCOLITIS DUE TO SEVERE CO NSTIPATION November 25, 2024 1:38pm STERCORAL PROCTOCOLITIS DUE TO SEVERE CO NSTIPATION November 25, 2024 8:51pm STERCORAL PROCTOCOLITIS DUE TO SEVERE CO NSTIPATION November 26, 2024 7:41am STERCORAL PROCTOCOLITIS DUE TO SEVERE CO NSTIPATION November 26, 2024 9:09am STERCORAL PROCTOCOLITIS DUE TO SEVERE CO NSTIPATION November 27, 2024 7:59am STERCORAL PROCTOCOLITIS DUE TO SEVERE CO NSTIPATION November 27, 2024 8:45am STERCORAL PROCTOCOLITIS DUE TO SEVERE CO NSTIPATION November 28, 2024 7:57am STERCORAL PROCTOCOLITIS DUE TO SEVERE CO NSTIPATION November 28, 2024 12:03pm Constipation December 13, 2024 7:52a m E-ORDER December 13, 2024 9:10a m ELEVATED LFT'S December 25, 2024 7:23 am Advance Directives No Advanced Directives Records Found Advance Directive Response Recorded Date/ Time Living Will No October 24, 2021 8:30am Power of Pesticide Chemist No October 24 8:30am Advance Directive Response Recorded Date/ Time Living Will No October 29, 2021 9:39am Power of Pesticide Chemist No October 29 9:39am Advance Directive Response Recorded Date/ Time Living Will No November 16, 2021 8: 50am Power of Pesticide Chemist No November 16, 2021 8:50am Advance Directive Response Recorded Date/ Time Living Will No January 16, 2022 2 :46pm Power of Pesticide Chemist No January 16, 2022 2:46pm Advance Directive Response Recorded Date/ Time Living Will No January 22, 2022 9:41pm Power of Pesticide Chemist No January 22 9:41pm Advance Directive Response Recorded Date/ Time Living Will No January 23, 2022 4:29pm Power of Pesticide Chemist No January 23 4:29pm Advance Directive Response Recorded Date/ Time Living Will No January 26, 2022 12:34pm Power of Pesticide Chemist No January 26 12:34pm Advance Directive Response Recorded Date/ Time Living Will No February 01, 2022 1:07pm Power of Pesticide Chemist No February 01 1:07pm Advance Directive Response Recorded Date/ Time Living Will No April 05, 2022 11:53am Power of Pesticide Chemist No March 11:53am Advance Directive Response Recorded Date/ Time Living Will No April 06, 2022 12:58pm Power of Pesticide Chemist No March 12:58pm Advance Directive Response Recorded Date/ Time Living Will No April 06, 2022 4:07pm Power of Pesticide Chemist No March 4:07pm Advance Directive Response Recorded Date/ Time Living Will No June 24, 2 022 3:40pm Power of Pesticide Chemist No June 24, 2022 3:40pm Advance Directive Response Recorded Date/ Time Living Will No August 12 5:35pm Power of Pesticide Chemist No August 12, 2022 5:35pm Advance Directive Response Recorded Date/ Time Living Will No August 12 10:55pm Power of Pesticide Chemist No August 12, 2022 10:55pm Advance Directive Response Recorded Date/ Time Living Will No January 07, 2023 8:51am Power of Pesticide Chemist No January 07 8:51am Advance Directive Response Recorded Date/ Time Living Will No January 09, 2023 1 2:00pm Power of Pesticide Chemist No January 09, 2023 12:00pm Advance Directive Response Recorded Date/ Time Living Will No January 12, 2023 1 2:39am Power of Pesticide Chemist No January 12, 2023 12:39am Advance Directive Response Recorded Date/ Time Living Will No January 12, 2023 1 2:53pm Power of Pesticide Chemist No January 12, 2023 12:53pm Advance Directive Response Recorded Date/ Time Living Will No January 14, 2023 4 :21pm Power of Pesticide Chemist No January 14, 2023 4:21pm Advance Directive Response Recorded Date/ Time Living Will No January 25, 2023 11:41am Power of Pesticide Chemist No January 25 11:41am Advance Directive Response Recorded Date/ Time Living Will No February 08, 2023 12:35pm Power of Pesticide Chemist No February 08 12:35pm Latest Code Status on File Code Status Date Activated Date Inactivated Comments Full Code 02/18/2023 1:58 AM 02/20/2023 4:13 PM Question Answer Comments Full Code Order Discussed With: Patient Advance Directive Response Recorded Date/ Time Living Will No February 26 12:10am Power of Pesticide Chemist No February 26, 2 023 12:10am Latest Code Status on File Code Status Date Activated Date Inactivated Comments Full Code 02/18/2023 1:58 AM 02/20/2023 4:13 PM Question Answer Comments Full Code Order Discussed With: Patient Latest Code Status on File Code Status Date Activated Date Inactivated Comments Full Code 03/02/2023 4:00 PM Question Answer Comments Full Code Order Discussed With: Patient Code Status History Code Status Date Activated Date Inactivated Comments Full Code 02/18/2023 1:58 AM 02/20/2023 4:13 PM Question Answer Comments Full Code Order Discussed With: Patient Advance Directive Response Recorded Date/ Time Living Will No March 06 8:38am Power of Pesticide Chemist No March 06, 2 023 8:38am Latest Code Status on File Code Status Date Activated Date Inactivated Comments Full Code 03/02/2023 4:00 PM 03/05/2023 12:11 AM Question Answer Comments Full Code Order Discussed With: Patient Latest Code Status on File Code Status Date Activated Date Inactivated Comments Full Code 03/02/2023 4:00 PM 03/05/2023 12:11 AM Question Answer Comments Full Code Order Discussed With: Patient Code Status History Code Status Date Activated Date Inactivated Comments Full Code 02/18/2023 1:58 AM 02/20/2023 4:13 PM Question Answer Comments Full Code Order Discussed With: Patient Advance Directive Response Recorded Date/ Time Living Will No May 04 12:14pm Power of Pesticide Chemist No May 04, 2023 12:14pm Advance Directive Response Recorded Date/ Time Living Will No May 04 6:42pm Power of Pesticide Chemist No May 04, 2023 6:42pm Advance Directive Response Recorded Date/ Time Living Will No May 04 5:42pm Power of Pesticide Chemist No May 04, 2023 5:42pm Advance Directive Response Recorded Date/ Time Living Will No June 28, 2 023 9:27am Power of Pesticide Chemist No June 28, 2023 9:27am Advance Directive Response Recorded Date/ Time Living Will No July 02, 2 023 9:33am Power of Pesticide Chemist No July 02, 2023 9:33am Advance Directive Response Recorded Date/ Time Living Will No July 16 9:15am Power of Pesticide Chemist No July 16 024 9:15am Advance Directive Response Recorded Date/ Time Living Will No July 16 10:15am Power of Pesticide Chemist No July 16, 2 024 10:15am Date Activated Date Inactivated Comments 03/02/2023 4:00 PM 03/05/2023 12:11 AM Question Answer Comments Full Code Order Discussed With: Patient Date Activated Date Inactivated Comments 02/18/2023 1:58 AM 02/20/2023 4:13 PM Question Answer Comments Full Code Order Discussed With: Patient Date Activated Date Inactivated Comments 03/02/2023 4:00 PM 03/05/2023 12:11 AM Question Answer Comments Full Code Order Discussed With: Patient Date Activated Date Inactivated Comments 02/18/2023 1:58 AM 02/20/2023 4:13 PM Question Answer Comments Full Code Order Discussed With: Patient Advance Directive Response Recorded Date/ Time Living Will No June 25, 023 9:33am Power of Pesticide Chemist No June 25, 2023 9:33am Advance Directive Response Recorded Date/ Time Living Will No June 26, 2 023 12:21pm Power of Pesticide Chemist No June 26, 2023 12:21pm Advance Directive Response Recorded Date/ Time Living Will No June 27 023 5:53am Power of Pesticide Chemist No June 27, 2023 5:53am Advance Directive Response Recorded Date/ Time Do you have a Healthcare Power of Pesticide Chemist? No November 25, 2024 8:56am Advance Directive Response Recorded Date/ Time Do you have a Healthcare Power of Pesticide Chemist? No November 25, 2024 2:54pm Family History No Family History Records Found Relationship Condition Age at Onset Recorded Date/T jose Not Specified Hemorrhagic disorder Unknown Malignant neoplasm Unknown Hypertension Unknown Relationship Condition Age at Onset Recorded Date/T jose Not Specified Diabetes mellitus Unknown Hemorrhagic disorder Unknown Malignant neoplasm Unknown Hypertension Unknown Reason for Referral Specialty Diagnoses / Procedures Referred By Contac t Referred To Contact Pulmonary and Critical Care Medicine Diagnoses Abnormal lung scan Procedures CONSULT TO PULM/CRITICAL CARE OFFICE/OUTPATIENT [facility] 60-74 MINUTES Alyssa Jaime, ROSA.AVIONIC TECHNICIAN [id number] [place] [address] Referral ID Status Reason Start Date Expiration Date Visits Requested Visits Authorized [id number] Authorized PCP Requested Referral 02/02/2022 02/02/2023 1 1 Specialty Diagnoses / Procedures Referred By Contac t Referred To Contact Pain Management Diagnoses Chronic abdominal pain Procedures CONSULT TO PAIN MGT OFFICE/OUTPATIENT [facility] 60-74 MINUTES Pilar Magdaleno APRN.AVIONIC TECHNICIAN [address] [place] [address] Referral ID Status Reason Start Date Expiration Date Visits Requested Visits Authorized [id number] Authorized PCP Requested Referral 02/23/2023 02/23/2024 1 1 Specialty Diagnoses / Procedures Referred By Contac t Referred To Contact Gastroenterology Diagnoses Chronic nausea Procedures CONSULT TO GASTROENTEROLOGY OFFICE/OUTPATIENT [facility] 60-74 MINUTES Pilar Magdaleno, ROSA.AVIONIC TECHNICIAN [address] [place] [address] Referral ID Status Reason Start Date Expiration Date Visits Requested Visits Authorized [id number] Authorized PCP Requested Referral 02/23/2023 02/23/2024 1 1 Referral ID Status Reason Start Date Expiration Date Visits Requested Visits Authorized [id number] Authorized PCP Requested Referral 03/12/2023 03/11/2024 1 1 Health Concerns Infection Onset Date Last Indicated Resolved Time COVID-19 Rule-Out 03/23/2022 03/23/2022 Summary Purpose Additional Source Comments Goals (unrecognized section and content) Goals may be documented in a n alternate sectionGoals may be documented in an alternate sectionGoals may be documented in an alternate sectionGoals may be documented in an alternate sectionGoals may be documented in an alternate sectionGoals may be documented in an alternate sectionGoals may be documented in an alternate sectionGoals may be documented in an alternate sectionGoals may be documented in an alternate sectionGoals may be documented in an alternate sectionGoals may be documented in an alternate sectionGoals may be documented in an alternate sectionGoals may be documented in an alternate section No data available for this sectionGoals may be documented in an alternate sectionGoals may be documented in an alternate section No data available for this sectionGoals may be documented in an alternate sectionGoals may be documented in an alternate sectionGoals may be documented in an alternate section Source Comments (unrecognize d section and content) In the event this informatio n is protected by the Federal Confidentiality of Alcohol and Drug Abuse Patient Records regulations: The Federal rules restrict any use of the information to criminally investigate or prosecute any alcohol or drug abuse patient.[facility] RehabilitationIn the event this information is protected by the Federal Confidentiality of Alcohol and Drug Abuse Patient Records regulations: The Federal rules restrict any use of the information to criminally investigate or prosecute any alcohol or drug abuse patient.[facility] RehabilitationIn the event this information is protected by the Federal Confidentiality of Alcohol and Drug Abuse Patient Records regulations: The Federal rules restrict any use of the information to criminally investigate or prosecute any alcohol or drug abuse patient.[facility] RehabilitationIn the event this information is protected by the Federal Confidentiality of Alcohol and Drug Abuse Patient Records regulations: The Federal rules restrict any use of the information to criminally investigate or prosecute any alcohol or drug abuse patient.[facility] RehabilitationIn the event this information is protected by the Federal Confidentiality of Alcohol and Drug Abuse Patient Records regulations: The Federal rules restrict any use of the information to criminally investigate or prosecute any alcohol or drug abuse patient.[facility] RehabilitationIn the event this information is protected by the Federal Confidentiality of Alcohol and Drug Abuse Patient Records regulations: The Federal rules restrict any use of the information to criminally investigate or prosecute any alcohol or drug abuse patient.[facility] RehabilitationIn the event this information is protected by the Federal Confidentiality of Alcohol and Drug Abuse Patient Records regulations: The Federal rules restrict any use of the information to criminally investigate or prosecute any alcohol or drug abuse patient.[facility] RehabilitationIn the event this information is protected by the Federal Confidentiality of Alcohol and Drug Abuse Patient Records regulations: The Federal rules restrict any use of the information to criminally investigate or prosecute any alcohol or drug abuse patient.[facility] RehabilitationIn the event this information is protected by the Federal Confidentiality of Alcohol and Drug Abuse Patient Records regulations: The Federal rules restrict any use of the information to criminally investigate or prosecute any alcohol or drug abuse patient.[facility] RehabilitationIn the event this information is protected by the Federal Confidentiality of Alcohol and Drug Abuse Patient Records regulations: The Federal rules restrict any use of the information to criminally investigate or prosecute any alcohol or drug abuse patient.[facility] RehabilitationIn the event this information is protected by the Federal Confidentiality of Alcohol and Drug Abuse Patient Records regulations: The Federal rules restrict any use of the information to criminally investigate or prosecute any alcohol or drug abuse patient.[facility] RehabilitationIn the event this information is protected by the Federal Confidentiality of Alcohol and Drug Abuse Patient Records regulations: The Federal rules restrict any use of the information to criminally investigate or prosecute any alcohol or drug abuse patient.[facility] RehabilitationIn the event this information is protected by the Federal Confidentiality of Alcohol and Drug Abuse Patient Records regulations: The Federal rules restrict any use of the information to criminally investigate or prosecute any alcohol or drug abuse patient.[facility] RehabilitationIn the event this information is protected by the Federal Confidentiality of Alcohol and Drug Abuse Patient Records regulations: The Federal rules restrict any use of the information to criminally investigate or prosecute any alcohol or drug abuse patient.[facility] RehabilitationIn the event this information is protected by the Federal Confidentiality of Alcohol and Drug Abuse Patient Records regulations: The Federal rules restrict any use of the information to criminally investigate or prosecute any alcohol or drug abuse patient.[facility] RehabilitationIn the event this information is protected by the Federal Confidentiality of Alcohol and Drug Abuse Patient Records regulations: The Federal rules restrict any use of the information to criminally investigate or prosecute any alcohol or drug abuse patient.[facility] RehabilitationIn the event this information is protected by the Federal Confidentiality of Alcohol and Drug Abuse Patient Records regulations: The Federal rules restrict any use of the information to criminally investigate or prosecute any alcohol or drug abuse patient.[facility] RehabilitationIn the event this information is protected by the Federal Confidentiality of Alcohol and Drug Abuse Patient Records regulations: The Federal rules restrict any use of the information to criminally investigate or prosecute any alcohol or drug abuse patient.[facility] RehabilitationIn the event this information is protected by the Federal Confidentiality of Alcohol and Drug Abuse Patient Records regulations: The Federal rules restrict any use of the information to criminally investigate or prosecute any alcohol or drug abuse patient.[facility] RehabilitationIn the event this information is protected by the Federal Confidentiality of Alcohol and Drug Abuse Patient Records regulations: The Federal rules restrict any use of the information to criminally investigate or prosecute any alcohol or drug abuse patient.[facility] RehabilitationIn the event this information is protected by the Federal Confidentiality of Alcohol and Drug Abuse Patient Records regulations: The Federal rules restrict any use of the information to criminally investigate or prosecute any alcohol or drug abuse patient.[facility] Reason for Visit (unrecogniz ed section and content) Reason Comments Abdominal Pain x january 12, seen in ed 4-5 times, stated pneumonia but no meds given Reason Comments Cough Chest congestion x4 days Reason Comments lump on right side of nose X 2 days Reason Comments Results Reason Comments Derm Problem sore on bridge of no se x 3 days Reason Comments Vomiting Syncope Reason Comments Hospital F/U Reason Comments New Patient Nausea and vomiting Specialty Diagnoses / Procedures Referred By Ubaldo t Referred To Contact Gastroenterology Diagnoses Chronic nausea Procedures CONSULT TO GASTROENTEROLOGY OFFICE/OUTPATIENT NEW HIGH MDM 60-74 MINUTES Pilar Magdaleno APRN.AVIONIC TECHNICIAN [address] [place] [address] Referral ID Status Reason Start Date Expiration Date V isits Requested Visits Authorized [id number] Closed PCP Requested Referral 02/23/2023 02/23/2024 1 1 Reason Comments Consult Reason Comments Follow Up Post Discharge F/U - 1st attempt made. No answer. Reason Comments Eye Problem Swelling, pain, righ t eye x day Reason Onset Date Comments Appointment 03/02/2023 Reason Comments Cough Cough x 1 week Reason Comments Cough Persistent & worse x 1 week with intermittent wheeze & SOB; DX Bronchopneumonia 06/26/24 Care Teams (unrecognized sec tion and content) Team Status: Active Member Role Status Dates Dr. Esther Cooney MD Family Provider Active Dr. Sophy Gibbons Primary Care Provider Active Team Status: Active Member Role Status Dates Dr. Sophy Gibbons Primary Care Provider Active Drew Hinson MD Emergency Provider Active Dr. Brenda Rao MD Admit Provider, Attending Provider, Other Provider Active Dr. Andres Matias DPM Other Provider Active Dr. Charles Green MD Other Provider Active Team Status: Active Member Role Status Dates Dr. Sophy Gibbons Primary Care Provider Active Drew Hinson MD Emergency Provider Active Dr. Brenda Rao MD Admit Provider, Other Provider Active Dr. Andres Matias DPM Other Provider Active Dr. Charles Green MD Other Provider Active Dr. Gale Lr DO Attending Provider, Other Provide r Active Team Status: Active Member Role Status Dates Dr. Sophy Gibbons Primary Care Provider Active Dr. Alex Christiansen DO Emergency Provider Active Dr. Valencia Urbina MD Admit Provider, Atte nding Provider, Other Provider Active Team Status: Inactive Member Role Status Dates No Primary Care Physician Primary Care Provider Active Dr. Abril Rhodes MD Attending Provider Active Team Status: Inactive Member Role Status Dates No Primary Care Physician Primary Care Provider Active Dr. Andres Matias DPM Attending Provider, Referrin g Provider Active Team Status: Inactive Member Role Status Dates No Primary Care Physician Primary Care Provider Active Dr. Andres Matias DPM Attending Provider Active Team Status: Inactive Member Role Status Dates Dr. Sophy Gibbons Primary Care Provider Active Drew Hinson MD Emergency Provider Active Dr. Brenda Rao MD Admit Provider, Other Provider Active Dr. Andres Matias DPM Other Provider Active Dr. Charles Green MD Other Provider Active Dr. Gale Lr DO Attending Provider Active Team Status: Active Member Role Status Dates Dr. Sophy Gibbons Primary Care Provider Active Dr. Alex Christiansen DO Emergency Provider Active Dr. Valencia Urbina MD Admit Provider, Attending Provider Active Team Status: Active Member Role Status Dates Dr. Sophy Gibbons Primary Care Provider Active Dr. Alex Christiansen DO Emergency Provider Active Dr. Valencia Urbina MD Admit Provider, Other Provider Act jim Dr. Lexus Villatoro MD Attending Provider, Other Provid er Active Team Status: Inactive Member Role Status Dates Dr. Sophy Gibbons Primary Care Provider Active Dr. Alex Christiansen DO Emergency Provider Active Dr. Valencia Urbina MD Admit Provider, Other Provider Act jim Dr. Lexus Villatoro MD Attending Provider Active Home Manager Relationship Specialty Start Date End Date Amy Solorzano, MARIA G [address] [place] [address] PCP - General Family Medicine 11/17/22 Team Status: Active Member Role Status Dates Dr. Esther Cooney MD Family Provider Active [facility] Primary Care Provider A ctive Team Status: Inactive Member Role Status Dates Dr. Sophy Gibbons Primary Care Provider Active Dr. Tim Vidal DO Attending Provider, Emergency P tala Active Team Status: Active Member Role Status Dates [facility] Primary Care Provider A ctive Amy Solorzano SHIPFITTERS SUPERVISOR, SHIPFITTERS SUPERVISOR-C Attending Provider, Referrin g Provider Active Team Status: Inactive Member Role Status Dates [facility] Primary Care Provider A ctive Dr. Poli Barfield DO Emergency Provider Active Team Status: Inactive Member Role Status Dates [facility] Primary Care Provider A ctive Dr. Deann Guerrero MD Emergency Provider Active Team Status: Inactive Member Role Status Dates [facility] Primary Care Provider A ctive Dr. Perico Norman DO Emergency Provider Active Team Status: Inactive Member Role Status Dates [facility] Primary Care Provider A ctive Dr. Fabricio Guevara MD Emergency Provider Active Team Status: Active Member Role Status Dates [facility] Primary Care Provider A ctive Dr. Willie Dhillon MD Emergency Provider Active Dr. Lexus Villatoro MD Admit Provider, At tending Provider, Other Provider Active Team Status: Inactive Member Role Status Dates [facility] Primary Care Provider A ctive Dr. Willie Dhillon MD Emergency Provider Active Dr. Lexus Villatoro MD Admit Provider, Attending Provid er Active Team Status: Inactive Member Role Status Dates [facility] Primary Care Provider A ctive Dr. Poli Barfield DO Attending Provider, Emergency Provide r Active Team Status: Inactive Member Role Status Dates [facility] Primary Care Provider A ctive Dr. Deann Guerrero MD Attending Provider, Emergency Provider Active Team Status: Inactive Member Role Status Dates [facility] Primary Care Provider A ctive Amy Solorzano SHIPFITTERS SUPERVISOR, SHIPFITTERS SUPERVISOR-C Attending Provider, Referrin g Provider Active Team Status: Inactive Member Role Status [facility] Primary Care Provider A ctive Dr. Perico Norman DO Attending Provider, Emergency Pr ovider Active Team Status: Inactive Member Role Status Dates [facility] Primary Care Provider A ctive Dr. Fabricio Guevara MD Attending Provider, Emergency Pro vider Active Home Manager Relationship Specialty Start Date End Date Amy Solorzano [address] [place] [id number] PCP - General 01/24/23 Home Manager Relationship Specialty Start Date End Date Amy Solorzano NP [address] [place] [address] PCP - General Family Medicine 11/17/22 Team Status: Inactive Member Role Status Dates [facility] Primary Care Provider A ctive Dr. Javy Doss , DO Emergency Provider Active Home Manager Relationship Specialty Start Date End Date Amy Solorzano NP [address] [place] [address] PCP - General Family Medicine 11/17/22 Team Status: Inactive Member Role Status Dates [facility] Primary Care Provider A ctive Dr. Javy Doss , DO Attending Provider, Emergency Pro vider Active Team Status: Inactive Member Role Status Dates [facility] Primary Care Provider A ctive Dr. Tim Vidal , DO Emergency Provider Active Home Manager Relationship Specialty Start Date End Date Amy Solorzano NP [address] [place] [address] PCP - General Family Medicine 11/17/22 Home Manager Relationship Specialty Start Date End Date Amy Solorzano NP [address] [place] [address] PCP - General Family Medicine 11/17/22 Team Status: Inactive Member Role Status Dates [facility] Primary Care Provider A ctive Dr. Tim Vidal , DO Attending Provider, Emergency P rovider Active Team Status: Inactive Member Role Status Dates [facility] Primary Care Provider A ctive Dr. Rickey Shepard , DO Emergency Provider Active Home Manager Relationship Specialty Start Date End Date Amy Solorzano NP [address] [place] [address] PCP - General Family Medicine 11/17/22 Home Manager Relationship Specialty Start Date End Date Amy Solorzano NP [address] [place] [address] PCP - General Family Medicine 11/17/22 Home Manager Relationship Specialty Start Date End Date Amy Solorzano NP [address] [place] [address] PCP - General Family Medicine 11/17/22 Home Manager Relationship Specialty Start Date End Date Amy SolorzanoMARIA G [address] [place] [address] PCP - General Family Medicine 11/17/22 Team Status: Active Member Role Status Dates Dr. Esther Cooney MD Family Provider Active No Primary Care Physician Primary Care Provider Active Team Status: Active Member Role Status Dates No Primary Care Physician Primary Care Provider Active Dr. Javy Doss DO Emergency Provider Active Dr. Rickey Gifford DO Attending Provider Active Team Status: Inactive Member Role Status Dates No Primary Care Physician Primary Care Provider Active Dr. Deann Guerrero MD Attending Provider, Emergency Provider Active Team Status: Inactive Member Role Status Dates No Primary Care Physician Primary Care Provider Active Dr. Fabricio Guevara MD Attending Provider, Emergency Pro vider Active Team Status: Active Member Role Status Dates No Primary Care Physician Primary Care Provider Active Dr. Javy Doss DO Emergency Provider Active Dr. Abdirizak Forrest DPM Attending Provider Active Team Status: Inactive Member Role Status Dates [facility] Primary Care Provider A ctive Dr. Rickey Shepard , DO Attending Provider, Emergency P ropatricia Active Team Status: Inactive Member Role Status Dates Dr. Poli Barfield DO Attending Provider, Emergency Provide r Active No Primary Care Physician Primary Care Provider Active Team Status: Active Member Role Status Dates No Primary Care Physician Primary Care Provider Active Dr. Javy Doss DO Emergency Provider Active Dr. Abdirizak Forrest DPM Other Provider Active Dr. Rickey Gifford DO Admit Provider, At tending Provider, Other Provider Active Team Status: Active Member Role Status Dates No Primary Care Physician Primary Care Provider Active Dr. Javy Doss DO Emergency Provider Active Dr. Abdirizak Forrest DPM Other Provider Active Dr. Rickey Gifford DO Admit Provider, At tending Provider, Referring Provider, Other Provider Active Team Status: Inactive Member Role Status Dates No Primary Care Physician Primary Care Provider Active Dr. Javy Doss DO Emergency Provider Active Dr. Abdirizak Forrest DPM Other Provider Active Dr. Rickey Gifford DO Admit Provider, At tending Provider, Referring Provider Active Team Status: Inactive Member Role Status Dates No Primary Care Physician Primary Care Provider Active Dr. Abdirizak Forrest DPM Attending Provider Active Team Status: Inactive Member Role Status Dates Dr. Sophy Gibbons Primary Care Provider Active Dr. Tesfaye Mitchell DO Emergency Provider Active Team Status: Inactive Member Role Status Dates Dr. Sophy Gibbons Primary Care Provider Active Drew Hinson MD Emergency Provider Active Team Status: Inactive Member Role Status Dates Dr. Tesfaye Mitchell DO Emergency Provider Active Dr. Sophy Gibbons Primary Care Provider Active Team Status: Inactive Member Role Status Dates Dr. Sophy Gibbons Primary Care Provider Active Dr. Alex Christiansen DO Emergency Provider Active Home Manager Relationship Specialty Start Date End Date Amy Solorzano NP [address] [place] [id number] PCP - General Family Medicine 11/17/22 Team Status: Inactive Member Role Status Dates Dr. Sophy Gibbons Primary Care Provider Active Dr. Tesfaye Mitchell DO Attending Provider, Emergency P rovider Active Team Status: Inactive Member Role Status Dates Dr. Tesfaye Mitchell DO Attending Provider, Emergency P rovider Active Dr. Sophy Gibbons Primary Care Provider Active Team Status: Inactive Member Role Status Dates Dr. Sophy Gibbons Primary Care Provider Active Dr. Alex Christiansen DO Attending Provider, Emergency Provider Active Team Status: Inactive Member Role Status Dates Dr. Tesfaye Mitchell DO Emergency Provider Active [facility] Primary Care Provider A ctive Team Status: Inactive Member Role Status Dates Dr. Abdirizak Forrest DPM Attending Provider, Referring Provider Active [facility] Primary Care Provider A ctive Team Status: Inactive Member Role Status Dates Dr. Sophy Gibbons Primary Care Provider Active Drew Hinson MD Attending Provider, Emergency Provid er Active Team Status: Inactive Member Role Status Dates Dr. Tesfaye Mitchell DO Attending Provider, Emergency P rovider Active [facility] Primary Care Provider A ctive Team Status: Inactive Member Role Status Dates [facility] Primary Care Provider A ctive Dr. Willie Dhillon MD Attending Provider, Emergency Provider Active Team Status: Inactive Member Role Status Dates [facility] Primary Care Provider A ctive Dr. Abdirizak Forrest DPM Attending Provider, Referring Provider Active Home Manager Relationship Specialty Start Date End Date Amy Solorzano SHIPFITTERS SUPERVISOR [address] [facility] [place] [phone] PCP - General Family Medicine 11/17/22 Home Manager Relationship Specialty Start Date End Date Amy Solorzano, SHIPFITTERS SUPERVISOR [address] [facility] [place] [phone] PCP - General Family Medicine 11/17/22 Home Manager Relationship Specialty Start Date End Date Amy Solorzano, SHIPFITTERS SUPERVISOR [address] [facility] [place] [phone] PCP - General Family Medicine 11/17/22 Home Manager Relationship Specialty Start Date End Date Amy Solorzano SHIPFITTERS SUPERVISOR [address] [facility] [place] [phone] PCP - General Family Medicine 11/17/22 Team Status: Active Member Role Status Dates Amy Solorzano VSC, SHIPFITTERS SUPERVISOR-C Primary Care Provider Activ e Team Status: Inactive Member Role Status Dates Amy Solorzano VSC, SHIPFITTERS SUPERVISOR-C Primary Care Provider Activ e Start: October 17, 2024 End: October 17, 2024 Amy EDWARDSC, SHIPFITTERS SUPERVISOR-C Attending Provider Active Start: October 17, 2024 End: October 17, 2024 Team Status: Inactive Member Role Status Dates Amy EDWARDSC, SHIPFITTERS SUPERVISOR-C Primary Care Provider Activ e Start: October 25, 2024 End: October 25, 2024 Dr. Abdirizak Forrest DPM Attending Provider Active Start: October 25, 2024 End: October 25, 2024 Dr. Abdirizak Forrest DPM Referring Provider Active Start: October 25, 2024 End: October 25, 2024 Team Status: Active Member Role Status Dates Amy BARAHONA, SHIPFITTERS SUPERVISOR-C Primary Care Provider Activ e Start: November 25, 2024 Drew Hinson MD Emergency Provider Active Star t: November 25, 2024 Dr. Brenda Rao MD Admit Provider Active St art: November 25, 2024 Dr. Brenda Rao MD Attending Provider Active Start: November 25, 2024 Team Status: Inactive Member Role Status Dates Amy BARAHONA, SHIPFITTERS SUPERVISOR-C Primary Care Provider Activ e Start: November 25, 2024 End: November 28, 2024 Drew Hinson MD Emergency Provider Active Star t: November 25, 2024 End: November 28, 2024 Dr. Brenda Rao MD Admit Provider Active St art: November 25, 2024 End: November 28, 2024 Dr. Brenda Rao MD Other Provider Active St art: November 25, 2024 End: November 28, 2024 Dr. Annalise Welch MD Other Provider Active S tart: November 25, 2024 End: November 28, 2024 Dr. Gale Lr DO Attending Provider Active S tart: November 25, 2024 End: November 28, 2024 Team Status: Active Member Role Status Dates Amy BARAHONA, SHIPFITTERS SUPERVISOR-C Primary Care Provider Activ e Start: November 25, 2024 Drew Hinson MD Emergency Provider Active Star t: November 25, 2024 Dr. Brenda Rao MD Admit Provider Active St art: November 25, 2024 Dr. Brenda Rao MD Other Provider Active St art: November 25, 2024 Dr. Annalise Welch MD Attending Provider Active Start: November 25, 2024 Dr. Annalise Welch MD Other Provider Active S tart: November 25, 2024 Team Status: Active Member Role Status Dates Amy BARAHONA, SHIPFITTERS SUPERVISOR-C Primary Care Provider Activ e Start: November 26, 2024 Drew Hinson MD Emergency Provider Active Star t: November 26, 2024 Dr. Brenda Rao MD Admit Provider Active St art: November 26, 2024 Dr. Brenda Rao MD Other Provider Active St art: November 26, 2024 Dr. Annalise Welch MD Attending Provider Active Start: November 26, 2024 Dr. Annalise Welch MD Other Provider Active S tart: November 26, 2024 Team Status: Active Member Role Status Dates Amy BARAHONA, SHIPFITTERS SUPERVISOR-C Primary Care Provider Activ e Start: November 26, 2024 Drew Hinson MD Emergency Provider Active Star t: November 26, 2024 Dr. Brenda Rao MD Admit Provider Active St art: November 26, 2024 Dr. Brenda Rao MD Attending Provider Active Start: November 26, 2024 Dr. Brenda Rao MD Other Provider Active St art: November 26, 2024 Dr. Annalise Welch MD Other Provider Active S tart: November 26, 2024 Team Status: Active Member Role Status Dates Amy BARAHONA, SHIPFITTERS SUPERVISOR-C Primary Care Provider Activ e Start: November 27, 2024 Drew Hinson MD Emergency Provider Active Star t: November 27, 2024 Dr. Brenda Rao MD Admit Provider Active St art: November 27, 2024 Dr. Brenda Rao MD Other Provider Active St art: November 27, 2024 Dr. Annalise Welch MD Other Provider Active S tart: November 27, 2024 Dr. Gale Lr DO Attending Provider Active S tart: November 27, 2024 Dr. Gale Lr DO Other Provider Active Start : November 27, 2024 Team Status: Active Member Role Status Dates Amy BARAHONA, SHIPFITTERS SUPERVISOR-C Primary Care Provider Activ e Start: November 27, 2024 Drew Hinson MD Emergency Provider Active Star t: November 27, 2024 Dr. Brenda Rao MD Admit Provider Active St art: November 27, 2024 Dr. Brenda Rao MD Other Provider Active St art: November 27, 2024 Dr. Annalise Welch MD Other Provider Active S tart: November 27, 2024 Dr. Gale Lr DO Other Provider Active Start : November 27, 2024 Clare GRADY PA-C Attending Provider Active Start: November 27, 2024 Team Status: Active Member Role Status Dates Amy Rashad VSC, SHIPFITTERS SUPERVISOR-C Primary Care Provider Activ e Start: November 28, 2024 Drew Hinson MD Emergency Provider Active Star t: November 28, 2024 Dr. Brenda Rao MD Admit Provider Active St art: November 28, 2024 Dr. Brenda Rao MD Other Provider Active St art: November 28, 2024 Dr. Annalise Welch MD Other Provider Active S tart: November 28, 2024 Dr. Gale Lr , Other Provider Active Start : November 28, 2024 Clare GRADY PA-C Attending Provider Active Start: November 28, 2024 Team Status: Active Member Role Status Dates Amy BARAHONA, SHIPFITTERS SUPERVISOR-C Primary Care Provider Activ e Start: November 28, 2024 Drew Hinson MD Emergency Provider Active Star t: November 28, 2024 Dr. Brenda Rao MD Admit Provider Active St art: November 28, 2024 Dr. Brenda Rao MD Other Provider Active St art: November 28, 2024 Dr. Annalise Welch MD Other Provider Active S tart: November 28, 2024 Dr. Gale Lr DO Attending Provider Active S tart: November 28, 2024 Dr. Gale Lr , Other Provider Active Start : November 28, 2024 Team Status: Active Member Role Status Dates Dr. Tony Dwyer MD Attending Provider Active Start: October 25, 2024 Dr. Abdirizak Forrest DPM Referring Provider Active Start: October 25, 2024 Team Status: Active Member Role Status Dates Amy BARAHONA, SHIPFITTERS SUPERVISOR-C Primary Care Provider Activ e Start: November 25, 2024 Drew Hinson MD Emergency Provider Active Star t: November 25, 2024 Dr. Brenda Rao MD Admit Provider Active St art: November 25, 2024 Dr. Brenda Rao MD Other Provider Active St art: November 25, 2024 Dr. Annalise Welch MD Attending Provider Active Start: November 25, 2024 Dr. Annalise Welch MD Other Provider Active S tart: November 25, 2024 Dr. Gale Lr , Referring Provider Active S tart: November 25, 2024 Team Status: Inactive Member Role Status Dates Amy BARAHONA, SHIPFITTERS SUPERVISOR-C Primary Care Provider Activ e Start: December 13, 2024 End: December 13, 2024 Amykeiko BARAHONA, SHIPFITTERS SUPERVISOR-C Referring Provider Active Start: December 13, 2024 End: December 13, 2024 MIGUEL A South Attending Provider Active Start: December 13, 2024 End: December 13, 2024 Team Status: Inactive Member Role Status Dates Amy Rashad BARAHONA, SHIPFITTERS SUPERVISOR-C Primary Care Provider Activ e Start: December 13, 2024 End: December 13, 2024 MIGUEL A South Attending Provider Active Start: December 13, 2024 End: December 13, 2024 MIGUEL A South Referring Provider Active Start: December 13, 2024 End: December 13, 2024 Team Status: Inactive Member Role Status Dates Amy Rashad BARAHONA, SHIPFITTERS SUPERVISOR-C Primary Care Provider Activ e Start: December 25, 2024 End: December 25, 2024 MIGUEL A South Attending Provider Active Start: December 25, 2024 End: December 25, 2024 Kalee Peter Referring Provider Active Start: December 25, 2024 End: December 25, 2024 INFORMATION SOURCE (unrecogn ized section and content) DATE CREATED AUTHOR 01/24/2023 [facility] DATE CREATED AUTHOR AUTHOR'S ORGANIZ ATION 02/18/2023 [facility] DATE CREATED AUTHOR AUTHOR'S ORGANIZ ATION 04/19/2023 [facility] ([place]) DATE CREATED AUTHOR AUTHOR'S ORGANIZ ATION 02/02/2024 [facility] DATE CREATED AUTHOR AUTHOR'S ORGANIZ ATION 07/05/2024 [facility] DATE CREATED AUTHOR AUTHOR'S ORGANIZ ATION 12/28/2024 [facility] Scheduled Active and Recently Administ ered Medications (unrecognized section and content) Medication Order 01/22/2023 01/23/2023 01/24/2023 cefTRIAXone (Rocephin) 1,000 mg in sodium chloride 0.9 % 50 mL IVPB Mini-Bag Plus (COMPLETED) 1,000 mg, IntraVENous, at 100 mL/hr, Administer over 30 Minutes, Once, On 01/24/23 at 1125, For 1 dose, Mini-Bag Plus bag, Suspected Indication (Select all that apply): Urinary Tract Infection 1139 (New Bag - Prov ider: Tamica Penaloza RN)1209 (Stopped - Provider: Tamica Penaloza RN) dicyclomine (Bentyl) injection 20 mg (COMPLETED) 20 mg, IntraMUSCular, Once, On 01/24/23 at 1035, For 1 dose 1054 (Given - Provid er: Tamica ePnaloza RN) diphenhydrAMINE (BENADryl) injection 25 mg (COMPLETED) 25 mg, IntraVENous, Once, On 01/24/23 at 1130, For 1 dose 1131 (Given - Provid er: Tamica Penaloza RN) metoclopramide (Reglan) injection 10 mg (COMPLETED) 10 mg, IntraVENous, Once, On 01/24/23 at 1130, For 1 dose 1135 (Given - Provid er: Tamica Penaloza RN) ondansetron (Zofran) injection 4 mg (COMPLETED) 4 mg, IntraVENous, Once, On 01/24/23 at 1035, For 1 dose 1051 (Given - Provid er: Tamica Penaloza RN) sodium chloride 0.9 % bolus 1,000 mL (COMPLETED) 1,000 mL, IntraVENous, at 1,000 mL/hr, Administer over 1 Hours, Once, On 01/24/23 at 1035, For 1 dose 1046 (New Bag - Prov ider: Amy Mercado)1140 (Stopped - Provider: Tamica Penaloza RN) FOR RECORDS PERTAINING TO PATIENTS WHO ARE OR HAVE BEEN ENROLLED IN A CHEMICAL DEPENDENCY/SUBSTANCEABUSE PROGRAM, SOME INFORMATION MAY BE OMITTED. This clinical summary was aggregated from multiple sources. Caution should be exercised in using it in the provision of clinical care. This summary normalizes information from multiple sources, and as a consequence, information in this document may materially change the coding, format and clinical context of patient data. In addition, data may be omitted in some cases. CLINICAL DECISIONS SHOULD BE BASED ON THE PRIMARY CLINICAL RECORDS. [facility]. provides no warranty or guarantee of the accuracy or completeness of information in this document.
[2024-12-30 11:38] LABS: Internal QC Validated? YES +Cl - CLEAR BKGD; Pregnancy, Serum, hCG Quali. NEGATIVE Negative
[2024-12-30 11:39] LABS: ALB/GLOB Ratio 0.9 RATIO (0.9-2.4); AST(SGOT) 16 U/L (<=31); Alanine Aminotransfer ALT/SGPT 12 U/L (<=34); Albumin, Serum 4.2 g/dL (3.5-5.0); Alkaline Phosphatase 91 U/L (35-104); Anion Gap 20 (5-15); BUN 14 mg/dL (4-19); BUN/Creat Ratio 11.1 RATIO (10-20); Calcium,Total 9.7 mg/dL (7.6-11.0); Carbon Dioxide 19.2 mmol/L (21.0-32.0); Chloride 97 mmol/L (98-108); Creatinine, Serum 1.22 mg/dL (0.70-1.20); EST Glomerular Filtration Rate 60 (>60); Globulin 4.4 g/dL (2.2-4.2); Glucose 359 mg/dL (70-99); Lipase 25 U/L (13-75); Potassium 3.4 mmol/L (3.3-5.1); Protein, Total 8.6 g/dL (5.9-8.4); Sodium Level 137 mmol/L (133-145); Total Bilirubin 0.65 mg/dL (0.00-1.30)
[2024-12-30 12:08] LABS: Bacteria 0 SEEN /hpf (None Seen); Mucous, Urine 0 SEEN /hpf (<or=2+); Red Blood Cells-Urine 0 SEEN /hpf (0-5)
[2024-12-30] MEDS: 0.9% Normal Saline (1000mL) 1,000 ML 999 ML IV (12:18)
[2024-12-30] MEDS: Insulin Lispro 100 UNIT in 0.9% Normal Saline (100mL Bag) 99 ML 10.6 UNIT CONT INF (12:18)
--- NOTE | 2024-12-30 12:20 | CASEMGMT ---
Care Management Face to Face with patient for initial transition planning/care coordination assessment in the ED.? This software writer introduced self and role at [facility]. Patient alert and oriented. Patient willing to participate in assessment and is able to answer all questions appropriately.? Care providers, pharmacy, and demographics verified. Admitting Diagnosis: Acute Kidney Injury Other diagnosis history: Including but not limited to: Insulin dependent Diabetes Mellitus, Gastroesophageal Reflex Disease (GERD), Type 2 Diabetes with Diabetic Polyneuropathy, and asthma. PCP: Dr. Amy Dasilva Specialists: Denied. Patient likely to benefit from a referral to an Care Nurse Rn and Sewing Machine Adjuster. [facility]acy: [facility] Insurance: Medicaid/[place] Prescription Benefit: Yes Living Will/HPOA: No and not interested. LNOK: ?Patient identified her family member as her grandmother, Rhona Givens, of [place]. ?Patient denied having any children. Living Arrangements: Patient is currently residing in a [id number] with her ex-partner.? Patient stated she is in the middle of a break-up and is in the process of trying to secure her own housing so she can move out. Patient denied any stairs leading in/out of the apartment and denied any current environmental barriers. Transportation: Barriers identified. 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 Patient stated she is in need of resources for transportation which Health Service Worker later provided. DME: Blood Glucose Monitor with all supplies and diabetic shoes with block due to patient giving history of missing right toes due to amputation. C: Denied SNF/Rehab: [facility] in 2021 (patient believes) following a right foot surgery (not involving amputation). Patient stated she was there for a few weeks and then demanded to be discharged. Community Resources: Denied however expressed a desire/need for mental health resources which Health Service Worker later provided. Behavioral Health History: Patient endorsed a history of Depression, Anxiety and Borderline Personality Disorder. Patient stated she used to be treated with medications however denied any current medications or previous/current mental health treatment/therapy. Health Service Worker provided verbal and written resources for mental health treatment. Patient goals: Patient wishes to discharge home when medically ready, denies need for home health care at this time. Patient denied any other needs/concerns at this time. Disposition Plan: Admission to acute; RN CM/SW to follow for discharge planning needs that may arise. Deann Smith, SENIOR MECHANICAL PROJECT ENGINEER, ASSISTANT ATHLETIC TRAINER
[2024-12-30 12:26] LABS: Color, Urine Yellow (Yellow); Glucose, Dipstick 1000 mg/dl (Normal); Ketone-Dipstick 50 mg/dl (Negative); Leukocyte Esterase-Dipstick 500 /ul (Negative); Nitrite-Dipstick Negative (Negative); Occult Blood-Urine 10 /ul (Negative); Protein-Dipstick 30 mg/dl (Negative); Specific Gravity, Urine 1.025 (1.002-1.030); Urine Bilirubin Dipstick 3 mg/dL (Negative); Urine Clarity Sl. Cloudy (Clear); Urine Urobilinogen 1 mg/dl (Normal)
[2024-12-30 12:27] LABS: Squamous Epithelial Cells - UA 10-25 SEEN /hpf (5-10); White Blood Cells 5-10 SEEN /hpf (0-5)
[2024-12-30] MEDS: Metoclopramide 10 MG/2 ML Vial 5 MG IV (12:34)
--- NOTE | 2024-12-30 12:48 | HP.PCM.HOS_ITS ---
HPI - General General Date of Admission: 12/30/24 Date of Service: 12/30/24 Chief Complaint: Patient has been vomiting, nausea and diffuse abdominal pain intermittently going on for 1 month but persistent for last 2 days HPI Narrative SHOLA PATTON, is a 34 F who was recently admitted in November 2024 for stercoral colitis and abdominal pain, nausea vomiting for about a month and was treated with antibiotics and then was seen in GI office on 12/13 came back with worsening of symptoms including nausea vomiting and diffuse abdominal pain for last 2 days. She states she had some bright red streaks of blood in vomiting but was mainly bilious. She has type 2 diabetes mellitus with peripheral neuropathy and right foot ulcer that required transmetatarsal amputation. She she is on insulin and Trulicity but not taking Trulicity for last 2 to 3 weeks She describes her abdominal pain as generalized nonspecific. Denies acute lower urinary tract symptoms. No fever. She is moving her bowel. In ED, labs were consistent with DKA therefore admitted. Vitals in normal limit. [facility] Medical History Diabetes GERD (gastroesophageal reflux disease) Wears glasses History of MRSA infection Borderline personality disorder Alcohol use Insulin dependent diabetes mellitus Dietary restriction Heartburn Smoker Shortness of breath on exertion Leg cramps Type 2 diabetes mellitus with peripheral neuropathy Neuropathy, diabetic Elevated serum creatinine Failure of outpatient treatment Nausea and vomiting Diabetes mellitus with diabetic polyneuropathy Type 2 diabetes mellitus with foot ulcer Anxiety Depression Constipation Asthma Diabetes Home Medications ?Medication ?Instructions ?Recorded ?Last Taken ?Type insulin glargine 100 unit/mL (3 20 unit subcut BID doreen betes 08/12/22 12/29/24 History mL) subcutaneous pen (Lantus Solostar U-100 Insulin) albuterol sulfate 90 mcg/actuation 2 puff inhalation Q 4H PRN 11/25/24 Unknown History aerosol inhaler shortness of breath or wheez ing dulaglutide 4.5 mg/0.5 mL 4.5 mg subcut SA 11/25/24 History subcutaneous pen injector (Trulicity) linaclotide 145 mcg capsule 145 mcg PO QAM #30 caps 12/29/24 Rx (Linzess) Allergy/AdvReac Type Severity Reaction Status Date / Time No Known Allergies Allergy Verified 12/30/24 10:23 Family History Other Bleeding disorder Cancer Diabetes Hypertension Surgical History Hx of foot surgery Hx of foot surgery Social History Smoking Status: Former smoker alcohol intake: never substance use type: does not use what type of physical activity do you participate in: none ROS ROS Narrative Constitutional: Reports acute onset of fatigue and weakness. No fever. HEENT: Reports systems reviewed and no addt'l complaints, except as documented Respiratory/Chest: No acute shortness of breath or respiratory distress or wheezing. CVS: No chest pain/pressure. No history of cardiac disease Gastrointestinal: As described in HPI. History of cyclical vomiting. Genitourinary: Denies burning urination or new urinary tract symptoms Musculoskeletal: Denies acute joint pain or limited range of motion. No acute injury Neurologic: Denies seizure-like symptoms. Psychiatric: Anxiety and depression. History of substance use in the past including marijuana and ecstasy skin: No ulcer. No rash Endocrinology: Reports systems reviewed and no addt'l complaints, except as documented Hematologic/Lymphatic: Reports systems reviewed and no addt'l complaints, except as documented Rest 14 ROS are negative except as mentioned in HPI Vital Signs Vital Signs Vital Signs: 12/30/24 10:25 12/30/24 12:26 12/30/24 12:35 Temperature 97.4 F L 97.4 F L Temperature Source Oral Pulse Rate 97 94 94 Respiratory Rate 18 18 Blood Pressure 133/96 H 126/93 H 126/93 H Blood Pressure Mean 108 104 104 Pulse Ox 96 96 Oxygen Delivery Method Room Air Weight Weight: 233 lb 11.04 oz Body Mass Index (BMI) 37.7 Physical Exam Narrative General: Alert, Oriented x3, Cooperative HEENT: Atraumatic, PERRLA, EOMI, Normocephalic. Oral: Oral mucosa dry. No Gingival or Mucosal Lesions/ Ulcerations Neck: Supple, No JVD, Negative Carotid Bruits Chest wall/Lungs: Air entry equal in bilateral lung bases. No crepitation/rhonchi Cardiovascular: Regular rate and rhythm, Normal S1,S2, No M/G/R Abdomen: Bowel Sounds Present, Soft, mild diffuse tenderness. Non-Distended : No dysuria. No renal angle tenderness. No suprapubic tenderness. Extremities: No edema, Capillary Refill Less than 3 Seconds Skin: No rashes, No breakdown Musculoskeletal: No Tenderness to Palpation of Joints or Extremities. Status post right TMA Neurological: Cranial nerves II-XII grossly intact, DTR 2+/4. No acute focal neurological deficit. Psych/Mental Status: Flat affect, crying Results Lab / Micro Data 12/30/24 10:50 12/30/24 10:50 Labs: Laboratory Results - last 24 hr 12/30/24 10:50: WBC 13.3 H, RBC 4.79, Hgb 13.2, Hct 39.2, MCV 81.8, MCH 27.6, MCHC 33.7, RDW Std Deviation 41.4, RDW Coeff of John 14.3, Plt Count 430, MPV 9.7, Immature Gran % (Auto) 0.600, Neut % (Auto) 70.7 H, Lymph % (Auto) 23.6, Pine % (Auto) 4.8, Eos % (Auto) 0.0, Baso % (Auto) 0.3, Absolute Neuts (auto) 9.4 H, Absolute Lymphs (auto) 3.14, Nucleated RBC % 0, Sodium 137, Potassium 3.4, Chloride 97 L, Carbon Dioxide 19.2 L, Anion Gap 20 H, BUN 14, Creatinine 1.22 H, Estim Creat Clear Calc 81.50, Est GFR (MDRD) Non-Af 60, BUN/Creatinine Ratio 11.1, Glucose 359 H, Calcium 9.7, Total Bilirubin 0.65, AST 16, ALT 12, Alkaline Phosphatase 91, Total Protein 8.6 H, Albumin 4.2, Globulin 4.4 H, Albumin/Globulin Ratio 0.9, Lipase 25, Serum , Qual NEGATIVE 12/30/24 11:32: Urine Color Yellow, Urine Clarity Sl. Cloudy, Urine pH 5.0, Ur Specific [place] 1.025, Urine Protein 30 H, Urine Glucose (UA) 1000 H, Urine Ketones 50 H, Urine Occult Blood 10 H, Urine Nitrite Negative, Urine Bilirubin 3 H, Urine Urobilinogen 1 H, Ur Leukocyte Esterase 500 H, Urine RBC 0 SEEN, Urine WBC 5-10 SEEN, Ur Squamous Epith Cells 10-25 SEEN, Urine Bacteria 0 SEEN, Urine Mucus 0 SEEN Assessment & Plan Assessment/Plan (1) Diabetic ketoacidosis: QUALIFIERS: Diabetes mellitus type: type 2 Diabetes mellitus complication detail: without coma Qualified Code(s): E11.10 - Type 2 diabetes mellitus with ketoacidosis without coma (2) NAI (acute kidney injury): PLAN: Plan This is a 34-year-old female being admitted for nausea vomiting and generalized nonspecific abdominal pain consistent with DKA. 1. DKA with history of DM type II, complicated with peripheral neuropathy, diabetic ulcer in the past right foot status post TMA: Patient is being admitted in ICU. Labs shows bicarb 19, AG 20, K3.4. Serum magnesium and phosphorus and ABG ordered. No ABG. Glucose 359 in BMP. Patient had 2 L of IV fluid normal saline bolus in ED and then started on IV fluid and insulin drip as per DKA protocol. 2. Nausea/vomiting/generalized abdominal pain probably due to DKA: She has history of cyclical vomiting disorder and was admitted for stercoral colitis in December 03. Completed antibiotic. Mild leukocytosis but no fever probably due to DKA. History of constipation but moving her bowels. Continue stool softener 3. Chronic asthma, exact classification unclear probably intermittent asthma: Continue as needed albuterol. Not clinic asthma exacerbation 4. Anxiety, insomnia and depression and history of substance use disorder: Xanax 0.25 mg 3 times daily as needed ordered. Previous U tox was positive of marijuana and ecstasy. U tox is ordered. 5. Obesity grade 3: BMI is 37.7 with comorbidities as mentioned above. Patient not taking Trulicity for 2 weeks. Weight loss counseling done. Laundry Route Driver consult DVT prophylaxis, low risk: Early ambulation encouraged Living will/advanced directive/end of life care: Patient does not have living will or advanced directive. She does not have the year power of instrumentation manager for health. After discussion of benefits/risks procedures involved with full code, DNR CC arrest and DNR CC, the patient opted for full code. Patient does want artificial life support including intubation, tube feed, ventilator and/chest compression, central venous catheter, vasopressor and DC shock if needed Total time spent in [id number] encounter in discussion of advanced directive 17 minutes. Charges/Coding Visit Charges Inpatient E&M: 11494 Init Hosp L3 Procedures Hospitalists Procedures: 85052 Advncd Care Plan 30 Min
[2024-12-30 12:50] LABS: Amphetamine Urine NEGATIVE (<1000 ng/mL); Barbiturate Urine NEGATIVE (< 200 ng/mL); Benzodiazepine Urine NEGATIVE (< 200 ng/mL); Buprenorphine Urine NEGATIVE (< 200 ng/mL); Cocaine Urine NEGATIVE (< 300 ng/mL); Fentanyl, Urine NEGATIVE; Methadone Urine NEGATIVE (< 300 ng/mL); Opiates Urine NEGATIVE (< 300 ng/mL); Oxycodone, Urine NEGATIVE (< 100 ng/mL); PCP Urine NEGATIVE (< 25 ng/mL); THC Urine PRESUMPTIVE POSITIVE (< 50 ng/mL)
--- NOTE | 2024-12-30 13:02 | ED.RN ---
called report to Chidi in ICU
--- OUTSIDE RECORDS SUMMARY | 2024-12-30 13:03 | XMS RPT_ITS | CCD ---
Author Organization [facility] Care Team Providers Care Doctor Of Naprapathic Medicine Name Role Phone Care Physician, No Primary [...] Other Provider Dr. Charles Green Other Provider Dr. Sophy Gibbons Primary Care Provider MD Drew Hinson Emergency Provider Maira, Dr. Brenda Ng Admit Provider Maira, Dr. Brenda Ng Attending Provider Maira, Dr. Brenda Ng Other Provider Dr. Gale Lr Attending Provider Dr. Gale Lr Other Provider Dr. Andres Matias Other Provider Norma, Dr. Soto Other Provider Dr. Alex Christiansen Emergency Provider Trishchapmansborojuventino, Dr. [place] Admit Provider Trish[place]juventino, Dr. [place] Attending Provider Carlitos, Dr. [place] Other Provider Dr. Lexus Villatoro Attending Provider Dr. Lexus Villatoro Other Provider Unavailable Primary Care Provider Unavailarpita e Rashad SURFACE GRINDER TENDER, Amy Primary Care Provider [facility] Pro vider Dr. Willie Dhillon Emergency Provider Dr. Lexus Villatoro Admit Provider Dr. Lexus Villatoro Attending Provider Dr. Lexus Villatoro Other Provider ABDIRIZAK RAMIREZ Attending Unavailable RASHAD AMY Primary Care Unavailable Rashad Amy Primary Care Provider RASHAD RESIDENTIAL GLAZIER-PUBLIC TRANSPORTATION INSPECTOR, [facility] Primary Care Physicia n DEWAYNE CHACON DO Attending Unavailable DEWAYNE CHACON DO Primary Care Unavailable DEWAYNE CHACON DO Admitting Unavailable ASUNCIONGERALDINE Admitting Unavailable ASUNCIONGERALDINE PENN Attending Unavailable ASUNCIONGERALDINE MAURICE Primary Care Unavailable [facility] Primary Care Pro vider Dr. Willie Dhillon Emergency Provider Dr. Lexus Villatoro Admit Provider Dr. Lexus Villatoro Attending Provider Dr. Lexus Villatoro Other Provider BUCKYTed ESSIE Attending Unavailable RICARDO GERALDINE Referring Unavailable RASHAD RESIDENTIAL GLAZIER-PUBLIC TRANSPORTATION INSPECTOR, AMY Primary Care Unava fanny WEBB RESIDENTIAL GLAZIER-PUBLIC TRANSPORTATION INSPECTOR, MARTI Matthews Attending HELENA Villa Admitting Unavailable [...] Provider Dr. Rickey Gifford Other Provider Rashad SURFACE GRINDER TENDER, Amy Primary Care Provider Care Physician, No Primary Primary Care Provider Unavailable Dr. Javy Doss Emergency Provider Dr. Rickey Gifford Attending Provider Dr. Abdirizak Forrest Other Provider Dr. Rickey Gifford Admit Provider Dr. Rickey Gifford Other Provider Rashad SURFACE GRINDER TENDER, [facility] Primary Care Provider SRIRAM KAMKATIA Admitting Unavailable KELLEY LOPEZ Attending Unavailable AMY SOLORZANO Primary Care Unavailable CAYETANO TAI Unavailable Unavailable Primary Care Provider Unavailabl e RASHAD, AMY Primary Care Unavailable IRAIS HANNA Referring Unavailable RASHAD, AMY Primary Care Unavailable RASHAD, AMY Primary Care Unavailable Rashad SURFACE GRINDER TENDER-C, Amy Primary Care Provider Rashad SURFACE GRINDER TENDER-C, Amy Attending Provider Lon DPM, Dr. Rothman Attending Provider Lon DPM, Dr. Rothman Referring Provider Sravan BOYCE, Derw Emergency Provider Maira BOYCE, Dr. Brenda gN Admit Provider Maira BOYCE, Dr. Brenda Ng Attending Provider Maira BOYCE, Dr. Brenda Ng Other Provider Yuri BOYCE, Dr. Woody Other Provider Be KIM, Dr. Beasley Attending Provider Yuri BOYCE, Dr. Woody Attending Provider Maira BOYCE, Dr. Brenda Ng Attending Provider Be KIM, Dr. Beasley Other Provider Clare Loo PA-C Attending Provider [phone] Yuliya BOYCE, Dr. Tony Peterson Attending Provider Be KIM, Dr. Beasley Referring Provider Clare Loo PA-C Attending Provider Rashad SURFACE GRINDER TENDER-C, Amy Referring Provider Nayana Grigsby Attending Provider Nayana Grigsby Referring Provider Kalee Peter Referring Provider Unavailable [facility], Amy Referring Unavailabl e Nayana Peter Attending Unavailable Rashad [facility], Amy Primary Care Unavailabl e Maira, Brenda Berenice Admitting Unavailable Annalise Welch Consulting Unavailable Gale Lr Attending Unavailable [facility], Amy Primary Care Unavailabl e Maira, Brenda Berenice Consulting Unavailable Gale Lr Consulting Unavailable Annalise Welch Attending Unavailable Gale Lr Referring Unavailable Clare Steve Attending Unavailable Brenda Rao Attending Unavailable [facility], [facility] Unavailabl Nayana Dangelo Attending Unavailable Kalee Peter Referring Unavailable [facility], [facility] Unavailabl e [facility], Amy Attending UnavailAbdirizak Ayala Referring Unavailable Abdirizak Forrest Attending Unavailable [facility], [facility] Unavailabl e [facility], [facility] Unavailabl e [facility], Amy Attending Unavailabl e Maira Brenda Berenice Admitting Unavailable RobotAnnalise stone Consulting Unavailable Gale Lr Attending Unavailable [facility], [facility] Unavailabl e Maira, Brenda Berenice Consulting Unavailable [facility], [facility] Unavailarpita e Nayana Peter Attending Unavailable Nayana Peter Referring Unavailable Abdirizak Forrest Referring Unavailable Abdirizak Forrest Attending Unavailable [facility], [facility] Unavailabl e [facility], [facility] Unavailabl e Venkatesh Torres Attending Unavailable Nayana Peter Attending Unavailable Nayana Peter Referring Unavailable [facility], [facility] Unavailabl e Allergies Allergy Classification Reported Allergen(s) Allergy Type Date of Onset Reaction(s) Facility (2 sources) Cephalexin Drug Allergy 10-31-2013 Other: See Comments [facility] Work Phone: Medications Current Medications Medication Drug Class(es) Dates Sig (Normalized) Sig (Original) [id number] 200 actuat albuterol 0.09 mg/actuat metered dose [...] 0 Refill(s), 02/18/23 5:07:00 PM EDT, Pharmacy: [id number], 169.9, cm, 02/11/23 1:49:00 EDT, Height, [...] on above: Take [address] [facility] three times daily for 7 days. ciprofloxacin [...] extended release oral tablet (1 source) Uncompetitive H-ixbyaq-H-aspartate Receptor Antagonist, Sigma-1 Agonist Start: 2023 End: [...] 2:07pm docusate sodium 50 mg / sennosides, custodial 8.6 mg oral tablet (6 sources) Start: [...] January 30, 2022 12:00am polyethylene glycol 3350 49400 mg powder for oral solution (20 sources) Osmotic Laxative Start: 11-29-19 Polyethylene Glycol 3350 (Clearlax) 17 gram/dose powder Active 17 g PO DAILY November 28, 2024 12:00am Start: 04-06-2022 End: 05-04-2023 Polyethylene Glycol 3350 (Mi ralax) 17 gram/dose powder Discontinued 17 g PO DAILY as needed for constipation February 26, 2023 3:22am May 04, 2023 6:58pm Start: 06-06-2021 End: 02-18-2023 polyethylene glycol 3350 (UT RALAX, GLYCOLAX) 17 gram/dose powder Take 17 [...] Patient not started yet. 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 Fax to [phone] routine picc care per protocol (2 sources) [...] Start: 03-04-2023 take [address] [facility] every six hours as needed acetaminophen (TYLENOL EXTRA STRENGTH) 500 mg tablet Take 2 tablets by mouth every 6 hours as needed for pain. 30 tablet 03/04/2023 Active Comment on above: Take [address] [facility] every 6 hours as needed for pain. [...] 05-04-2023 Start: 10-24-2021 take [address] [facility] every six hours as needed Hydrocodone-Acetaminophen Active [...] Comment on above: Take 1 capsule by [facility] three times daily as needed for [...] Start: 10-29-2021 take [address] [facility] once daily Docusate Sodium (Colace) 100 mg [...] Comment on above: [facility]. Fiber (8 [...] End: 03-23-2022 MULTIVITAMIN ORAL Take by mo [facility]. 0 03/23/2022 Discontinued MULTIVITAMIN ORA L Take [...] today or tomorrow to set up appointment. certified legal secretary specialist called to schedule appointment. I had to [...] Range Facility Abdomen Limitedon 12-25-2024 Abdomen Limited [facility] Imaging Services [address] [place], [place] [address] Abdomen Limited MR#: [id number] Acct: [id number] Name: GHISLAINE GIVENS Rep #: [id number] : 1990 F 34 From: Amy merrill MD PCP: Amy Solorzano [facility], SURFACE GRINDER TENDER-C Status: REG CLI Study: Abdomen Limited Date of Exam: 12/25/24 Exam# [id number] Ordering Dr: Nayana Peter PROCEDURE: ABDOMEN LIMITED [...] of cholelithiasis or acute cholecystitis. [id number] CC: [facility] SURFACE GRINDER TENDER-C Amy Solorzano; MIGUEL A [place] Bath Operator: Signed Normal [facility] Absolute lymphocyte countOrd ered By: Nayana Peter on 12-13-2024 Lymphocytes Auto (Unsp spec) [#/Vol] 3.52 10*3/uL 0.83-4.51 [facility] Absolute neutrophil countOrd ered By: Nayana Peter on 12-13-2024 Neutrophils (Bld) [#/Vol] 5.0 10*3/uL 2.0-7.7 [facility] Anion gap in Serum or Plasma Ordered By: Nayana Peter on 12-13-2024 Anion gap [Moles/Vol] 13 mmol/L 5-15 [facility] Automated lymphocyte count a s percentage of total leukocytesOrdered By: Nayana Peter on 12-13-2024 Lymphocytes/100 WBC Auto (Unsp spec) 36.7 % 19-41 [facility] BUN/creatinine ratioOrdered By: Nayana Peter on 12-13-2024 Urea nitrogen/Creatinine [Mass ratio] 6.2 mg/mg Low 10-20 [facility] Basophil percentageOrdered B y: Nayana Peter on 12-13-2024 Basophils/100 WBC (Bld) 0.8 % 0-1 [facility] Bilirubin, totalOrdered By: Nayana Peter on 12-13-2024 Bilirubin [Mass/Vol] 0.30 mg/dL 0.00-1.30 [facility] CBC W/Diff, Automatedon Absolute Lymph 3.52 X10 3/uL Normal 0.83-4.51 [facility] Comment on above: Performed By: #### L 700.6800, L100.0100, L500.2500 #### [facility] [address] [place], [address] Absolute Neut 5.0 X10 3/uL Normal 2.0-7.7 [facility] Comment on above: Performed By: #### L 700.6800, L100.0100, L500.2500 #### [facility] [address] [place], [address] Basophils/100 WBC (Bld) 0.8 % Normal 0-1 [facility] Comment on above: Performed By: #### L 700.6800, L100.0100, L500.2500 #### [facility] [address] [place], [address] Eosinophils/100 WBC (Bld) 2.0 % Normal 0-5 [facility] Comment on above: Performed By: #### L 700.6800, L100.0100, L500.2500 #### [facility] [address] [place], [address] Erythrocyte distribution width (RBC) [Ratio] 14.0 % Normal 11.6-14.6 [facility] Comment on above: Performed By: #### L 700.6800, L100.0100, L500.2500 #### [facility] [address] [place], [address] Hematocrit (Bld) [Volume fraction] 40.5 % Normal 37-47 [facility] Comment on above: Performed By: #### L 700.6800, L100.0100, L500.2500 #### [facility] [address] [place], [address] Hemoglobin (Bld) [Mass/Vol] 13.2 g/dL Normal 12.0-15.0 [facility] Comment on above: Performed By: #### L 700.6800, L100.0100, L500.2500 #### [facility] [address] [place], [address] IG% 0.800 Normal 0.0-0.9 [facility] Comment on above: Result Comment: IG% - Immature Granulocytes (promyelocytes, myelocytes and metamyelocytes) > 1% indicates that a LEFT SHIFT is Present. Performed By: #### L 700.6800, L100.0100, L500.2500 #### [facility] [address] [place], [address] Lymphocytes/100 WBC (Bld) 36.7 % Normal 19-41 [facility] Comment on above: Performed By: #### L 700.6800, L100.0100, L500.2500 #### [facility] [address] [place], [address] MCH (RBC) [Entitic mass] 27.1 pg Normal 27.0-32.0 [facility] Comment on above: Performed By: #### L 700.6800, L100.0100, L500.2500 #### [facility] [address] [place], [address] MCHC (RBC) [Mass/Vol] 32.6 g/dL Normal 32-36 [facility] Comment on above: Performed By: #### L 700.6800, L100.0100, L500.2500 #### [facility] [address] [place], [address] MCV (RBC) [Entitic vol] 83.2 fL Normal 81-99 [facility] Comment on above: Performed By: #### L 700.6800, L100.0100, L500.2500 #### [facility] [address] [place], [address] Monocytes/100 WBC (Bld) 7.5 % Normal 0-10 [facility] Comment on above: Performed By: #### L 700.6800, L100.0100, L500.2500 #### [facility] [address] [place], [address] Neutrophils/100 WBC (Bld) 52.2 % Normal 47-70 [facility] Comment on above: Performed By: #### L 700.6800, L100.0100, L500.2500 #### [facility] [address] [place], [address] Nucleated RBC (Bld) [#/Vol] 0 10*3/uL Normal 0-5 [facility] Comment on above: Performed By: #### L 700.6800, L100.0100, L500.2500 #### [facility] [address] [place], [address] Platelet mean volume (Bld) [Entitic vol] 10.1 fL Normal 6.2-12.0 [facility] Comment on above: Performed By: #### L 700.6800, L100.0100, L500.2500 #### [facility] [address] [place], [address] Platelets (Bld) [#/Vol] 367 10*3/uL Normal 150-450 [facility] Comment on above: Performed By: #### L 700.6800, L100.0100, L500.2500 #### [facility] [address] [place], [address] RBC (Bld) [#/Vol] 4.87 10*6/uL Normal 4.2-5.4 [facility] Comment on above: Performed By: #### L 700.6800, L100.0100, L500.2500 #### [facility] [address] [place], [address] RDW SD 42.3 fl Normal 35.1-43.9 [facility] Comment on above: Performed By: #### L 700.6800, L100.0100, L500.2500 #### [facility] [address] [place], [address] WBC (Bld) [#/Vol] 9.6 10*3/uL Normal 4.4-11.0 [facility] Comment on above: Performed By: #### L 700.6800, L100.0100, L500.2500 #### [facility] [address] [place], [address] Carbon dioxide, total [Moles /volume] in Central venous bloodOrdered By: Nayana Peter on 12-13-2024 CO2 [Moles/Vol] 26.2 mmol/L 21.0-32.0 [facility] Chloride assayOrdered By: Tiffanie Peter on 12-13-2024 Chloride [Moles/Vol] 99 mmol/L 98-108 [facility] Comprehensive Metabolic Prof ilon 12-13-2024 Albumin [Mass/Vol] 3.8 g/dL Normal 3.5-5.0 [facility] Comment on above: Performed By: #### L 700.6800, L100.0100, L500.2500 #### [facility] [address] [place], [address] Albumin/Globulin [Mass ratio] 1.2 {ratio} Normal 0.9-2.4 [facility] Comment on above: Performed By: #### L 700.6800, L100.0100, L500.2500 #### [facility] [address] [place], [address] ALK PHOS 100 U/L Normal 35-104 [facility] Comment on above: Performed By: #### L 700.6800, L100.0100, L500.2500 #### [facility] [address] [place], [address] ALT [Catalytic activity/Vol] 36 U/L High <=34 [facility] Comment on above: Performed By: #### L 700.6800, L100.0100, L500.2500 #### [facility] [address] [place], [address] AST [Catalytic activity/Vol] 37 U/L High <=31 [facility] Comment on above: Performed By: #### L 700.6800, L100.0100, L500.2500 #### [facility] [address] [place], [address] Bilirubin [Mass/Vol] 0.30 mg/dL Normal 0.00-1.30 [facility] Comment on above: Performed By: #### L 700.6800, L100.0100, L500.2500 #### [facility] [address] [place], [address] BUN/CRE 6.2 RATIO Low 10-20 [facility] Comment on above: Performed By: #### L 700.6800, L100.0100, L500.2500 #### [facility] [address] [place], [address] Calcium [Mass/Vol] 8.8 mg/dL Normal 7.6-11.0 [facility] Comment on above: Performed By: #### L 700.6800, L100.0100, L500.2500 #### [facility] [address] [place], [address] Chloride [Moles/Vol] 99 mmol/L Normal 98-108 [facility] Comment on above: Performed By: #### L 700.6800, L100.0100, L500.2500 #### [facility] [address] [place], [address] CO2 [Moles/Vol] 26.2 mmol/L Normal 21.0-32.0 [facility] Comment on above: Performed By: #### L 700.6800, L100.0100, L500.2500 #### [facility] [address] [place], [address] Creatinine [Mass/Vol] 0.86 mg/dL Normal 0.70-1.20 [facility] Comment on above: Performed By: #### L 700.6800, L100.0100, L500.2500 #### [facility] [address] [place], [address] GAP 13 Normal 5-15 [facility] Comment on above: Performed By: #### L 700.6800, L100.0100, L500.2500 #### [facility] [address] [place], [address] GFR/1.73 sq M.predicted among non-blacks MDRD (S/P/Bld) [Vol rate/Area] 92 mL/min/{1.73_m2} Normal >60 [facility] Comment on above: Result Comment: mL/m in/1.73m2 CKD-EPI Creatinine Equation (2020) Performed By: #### L 700.6800, L100.0100, L500.2500 #### [facility] [address] [place], [address] Globulin (S) [Mass/Vol] 3.3 g/dL Normal 2.2-4.2 [facility] Comment on above: Performed By: #### L 700.6800, L100.0100, L500.2500 #### [facility] [address] [place], [address] Glucose [Mass/Vol] 251 mg/dL High 70-99 [facility] Comment on above: Performed By: #### L 700.6800, L100.0100, L500.2500 #### [facility] [address] [place], [address] Potassium [Moles/Vol] 4.0 mmol/L Normal 3.3-5.1 [facility] Comment on above: Performed By: #### L 700.6800, L100.0100, L500.2500 #### [facility] [address] [place], [address] Sodium [Moles/Vol] 139 mmol/L Normal 133-145 [facility] Comment on above: Performed By: #### L 700.6800, L100.0100, L500.2500 #### [facility] [address] [place], [address] T PROT 7.2 g/dL Normal 5.9-8.4 [facility] Comment on above: Performed By: #### L 700.6800, L100.0100, L500.2500 #### [facility] [address] [place], [address] Urea nitrogen [Mass/Vol] 5 mg/dL Normal 4-19 [facility] Comment on above: Performed By: #### L 700.6800, L100.0100, L500.2500 #### [facility] [address] [place], [address] Eosinophil percentageOrdered By: Nayana Peter on 12-13-2024 Eosinophils/100 WBC (Bld) 2.0 % 0-5 [facility] Erythrocyte distribution wid th ratioOrdered By: Nayana Peter on 12-13-2024 Erythrocyte distribution width (RBC) [Ratio] 14.0 % 11.6-14.6 [facility] Erythrocyte distribution wid th standard deviationOrdered By: Nayanamarco Peter on 12-13-2024 Erythrocyte distribution width (RBC) [Ratio] 42.3 fl 35.1-43.9 [facility] Gastroenterology Visit Repor ton 12-13-2024 Gastroenterology Visit Report [facility]astroenterology [address] [place] [address] OFFICE VISIT Date of Service: 12/13/24 MR#: [id number] Acct: [id number] Name: GHISLAINE GIVENS Rep #: [id number] : 1990 Provider: MIGUEL A [place] Age/Sex: 34/F Location: [email or web address] Status: Signed Intake Vital Signs 11/27/24 13:47 [...] 2022 and no prior hx of colonoscopy. [facility] Medical History (Updated 12/06/24 @ 00:00 by [...] to the office today for establishment with [facility] 5 with constipation and abd pain [...] female pt here today for f/u after [facility] admission. Pt was hospitalize (more content not included)... Normal [facility] Glomerular filtration rate ( GFR) estimation/1.73 sq m using serum, plasma, or whole bOrdered By: Nayana Peter on 12-13-2024 GFR/1.73 sq M.predicted among non-blacks MDRD (S/P/Bld) [Vol rate/Area] 92 mL/min/{1.73_m2} >60 [facility] Comment on above: mL/min/1.73m2 CKD-EP I Creatinine Equation (2020) Hematocrit Auto (Bld) [Volum e fraction]Ordered By: Nayana Peter on 12-13-2024 Hematocrit (Bld) [Volume fraction] 40.5 % 37-47 [facility] Hemoglobin measurementOrdere d By: Nayana Peter on 12-13-2024 Hemoglobin (Bld) [Mass/Vol] 13.2 g/dL 12.0-15.0 [facility] Immature granulocytes/100 WB C Auto (Bld)Ordered By: Nayana Peter on 12-13-2024 Immature granulocytes/100 WBC (Bld) 0.800 % 0.0-0.9 [facility] Comment on above: IG% - Immature Granu locytes (promyelocytes, myelocytes and metamyelocytes) > 1% indicates that a LEFT SHIFT is Present. Laboratory - Chemistry and C hemistry - challengeOrdered By: Nayana Peter on 12-13-2024 AST [Catalytic activity/Vol] 37 U/L High <32 [facility] MCV (mean corpuscular volume ) determinationOrdered By: Nayana Peter on 12-13-2024 MCV (RBC) [Entitic vol] 83.2 fL 81-99 [facility] Mean corpuscular hemoglobin (MCH) determinationOrdered By: Nayana Peter on 12-13-2024 MCH (RBC) [Entitic mass] 27.1 pg 27.0-32.0 [facility] Mean corpuscular hemoglobin concentration (MCHC) determinationOrdered By: Nayana Peter on 12-13-2024 MCHC (RBC) [Mass/Vol] 32.6 g/dL 32-36 [facility] Mean platelet volume determi nationOrdered By: Nayana Peter on 12-13-2024 Platelet mean volume (Bld) [Entitic vol] 10.1 fL 6.2-12.0 [facility] Monocyte percentageOrdered B y: Nayana Peter on 12-13-2024 Monocytes/100 WBC (Bld) 7.5 % 0-10 [facility] Neutrophil percentageOrdered By: Nayana Peter on 12-13-2024 Neutrophils/100 WBC (Bld) 52.2 % 47-70 [facility] Nucleated red blood cell per centageOrdered By: Nayana Peter on 12-13-2024 Nucleated RBC/100 WBC (Bld) [Ratio] 0 % 0-5 [facility] Platelet countOrdered By: Tiffanie Peter on 12-13-2024 Platelets (Bld) [#/Vol] 367 10*3/uL 150-450 [facility] Potassium measurement (mass/ volume)Ordered By: Nayana Peter on 12-13-2024 Potassium (Unsp spec) [Mass/Vol] 4.0 mmol/L 3.3-5.1 [facility] RBC Auto (Bld) [#/Vol]Ordere d By: Nayana Peter on 12-13-2024 RBC (Bld) [#/Vol] 4.87 10*6/uL 4.2-5.4 [facility] Serum creatinine measurement (mass/volume)Ordered By: Nayana Peter on 12-13-2024 Creatinine [Mass/Vol] 0.86 mg/dL 0.70-1.20 [facility] Serum globulin measurementOr dered By: Nayana Peter on 12-13-2024 Globulin (S) [Mass/Vol] 3.3 g/dL 2.2-4.2 [facility] Serum glucose measurement (m ass/volume)Ordered By: Nayana Peter on 12-13-2024 Glucose [Mass/Vol] 251 mg/dL High 70-99 [facility] Serum or plasma alanine jordan otransferase (ALT) measurementOrdered By: Nayana Peter on 12-13-2024 ALT [Catalytic activity/Vol] 36 U/L High <35 [facility] Serum or plasma albumin hussein urement (mass/volume)Ordered By: Nayana Peter on 12-13-2024 Albumin [Mass/Vol] 3.8 g/dL 3.5-5.0 [facility] Serum or plasma albumin/glob ulin mass ratioOrdered By: Nayana Peter on 12-13-2024 Albumin/Globulin [Mass ratio] 1.2 {ratio} 0.9-2.4 [facility] Serum or plasma alkaline bradley sphatase measurementOrdered By: Nayana Peter on 12-13-2024 ALP [Catalytic activity/Vol] 100 U/L 35-104 [facility] Serum or plasma calcium hussein urement (mass/volume)Ordered By: Nayana Peter on 12-13-2024 Calcium [Mass/Vol] 8.8 mg/dL 7.6-11.0 [facility] Serum or plasma urea nitroge n measurement (mass/volume)Ordered By: Nayana Peter on 12-13-2024 Urea nitrogen [Mass/Vol] 5 mg/dL 4-19 [facility] Sodium levelOrdered By: Oh Peter on 12-13-2024 Sodium [Moles/Vol] 139 mmol/L 133-145 [facility] Total proteinOrdered By: Candie Peter on 12-13-2024 Protein [Mass/Vol] 7.2 g/dL 5.9-8.4 [facility] White blood cell (WBC) count Ordered By: Nayana Peter on 12-13-2024 WBC (Bld) [#/Vol] 9.6 10*3/uL 4.4-11.0 [facility] Culture, Blood (WB)on 2024 CUB Blood cultures x2, f rom two different sites No growth in 5 days. Normal [facility] Comment on above: Performed By: #### M 200.1000, L503.6005 #### [facility] [address] [place], [address] CUB Blood cultures x2, f rom two different sites No growth in 5 days. Normal [facility] Comment on above: Performed By: #### L 700.6800, L100.0100, L500.2500 #### [facility] [address] [place], [address] Absolute lymphocyte countOrd ered By: Gale Lr on 11-28-2024 Lymphocytes Auto (Unsp spec) [#/Vol] 5.24 10*3/uL High 0.83-4.51 [facility] Absolute neutrophil countOrd ered By: Gale Lr on 11-28-2024 Neutrophils (Bld) [#/Vol] 6.1 10*3/uL 2.0-7.7 [facility] Anion gap in Serum or Plasma Ordered By: Gale rL on 11-28-2024 Anion gap [Moles/Vol] 12 mmol/L - [facility] Automated lymphocyte count a s percentage of total leukocytesOrdered By: Gale Lr on 11-28-2024 Lymphocytes/100 WBC Auto (Unsp spec) 43.0 % High - [facility] BUN/creatinine ratioOrdered By: Gale Lr on 11-28-2024 Urea nitrogen/Creatinine [Mass ratio] 12.2 mg/mg 10- [facility] Basic Metabolic Profile (BMP )on 11-28-2024 BUN Normal 4- [facility] Comment on above: Result Comment: DUPL ICATE Performed By: #### L 500.2500, L100.0100 #### [facility] [address] [place], [address] BUN/CRE Normal 10-20 [facility] Comment on above: Result Comment: DUPL ICATE Performed By: #### L 500.2500, L100.0100 #### [facility] [address] [place], [address] Calcium Normal 7.6-11.0 [facility] Comment on above: Result Comment: DUPL ICATE Performed By: #### L 500.2500, L100.0100 #### [facility] [address] [place], [address] CL Normal 98-108 [facility] Comment on above: Result Comment: DUPL ICATE Performed By: #### L 500.2500, L100.0100 #### [facility] [address] [place], [address] CO2 Normal 21.0-32.0 [facility] Comment on above: Result Comment: DUPL ICATE Performed By: #### L 500.2500, L100.0100 #### [facility] [address] [place], [address] CREAT,SERUM Normal 0.70-1.20 [facility] Comment on above: Result Comment: DUPL ICATE Performed By: #### L 500.2500, L100.0100 #### [facility] [address] [place], [address] eGFR Normal >60 [facility] Comment on above: Result Comment: DUPL ICATE Performed By: #### L 500.2500, L100.0100 #### [facility] [address] [place], [address] GAP Normal 5-15 [facility] Comment on above: Result Comment: DUPL ICATE Performed By: #### L 500.2500, L100.0100 #### [facility] [address] [place], [address] GLU Normal 70-99 [facility] Comment on above: Result Comment: DUPL ICATE Performed By: #### L 500.2500, L100.0100 #### [facility] [address] [place], [address] Potassium Normal 3.3-5.1 [facility] Comment on above: Result Comment: DUPL ICATE Performed By: #### L 500.2500, L100.0100 #### [facility] [address] [place], [address] Basic Metabolic Profile (BMP) Normal 133-145 [facility] Comment on above: Result Comment: DUPL ICATE Performed By: #### L 500.2500, L100.0100 #### [facility] [address] [place], [address] BUN/CRE 12.2 RATIO Normal 10-20 [facility] Comment on above: Performed By: #### L 700.6800, L100.0100, L500.2500 #### [facility] [address] [place], [address] Calcium [Mass/Vol] 7.9 mg/dL Normal 7.6-11.0 [facility] Comment on above: Performed By: #### L 700.6800, L100.0100, L500.2500 #### [facility] [address] [place], [address] Chloride [Moles/Vol] 104 mmol/L Normal 98-108 [facility] Comment on above: Performed By: #### L 700.6800, L100.0100, L500.2500 #### [facility] [address] [place], [address] CO2 [Moles/Vol] 24.7 mmol/L Normal 21.0-32.0 [facility] Comment on above: Performed By: #### L 700.6800, L100.0100, L500.2500 #### [facility] [address] [place], [address] Creatinine [Mass/Vol] 1.02 mg/dL Normal 0.70-1.20 [facility] Comment on above: Performed By: #### L 700.6800, L100.0100, L500.2500 #### [facility] [address] [place], [address] ECRCL 99.83 ml/min Normal 50-250 [facility] Comment on above: Performed By: #### L 700.6800, L100.0100, L500.2500 #### [facility] [address] [place], [address] GAP 12 Normal 5-15 [facility] Comment on above: Performed By: #### L 700.6800, L100.0100, L500.2500 #### [facility] [address] [place], [address] GFR/1.73 sq M.predicted among non-blacks MDRD (S/P/Bld) [Vol rate/Area] 75 mL/min/{1.73_m2} Normal >60 [facility] Comment on above: Result Comment: mL/m in/1.73m2 CKD-EPI Creatinine Equation (2020) Performed By: #### L 700.6800, L100.0100, L500.2500 #### [facility] [address] [place], [address] Glucose [Mass/Vol] 134 mg/dL High 70-99 [facility] Comment on above: Performed By: #### L 700.6800, L100.0100, L500.2500 #### [facility] [address] [place], [address] Potassium [Moles/Vol] 3.5 mmol/L Normal 3.3-5.1 [facility] Comment on above: Performed By: #### L 700.6800, L100.0100, L500.2500 #### [facility] [address] [place], [address] Sodium [Moles/Vol] 141 mmol/L Normal 133-145 [facility] Comment on above: Performed By: #### L 700.6800, L100.0100, L500.2500 #### [facility] [address] [place], [address] Urea nitrogen [Mass/Vol] 12 mg/dL Normal 4-19 [facility] Comment on above: Performed By: #### L 700.6800, L100.0100, L500.2500 #### [facility] [address] [place], [address] Basophil percentageOrdered B y: Gale Be on 11-28-2024 Basophils/100 WBC (Bld) 0.6 % 0-1 [facility] Bedside Glucoseon 11-28-2024 FINGERSTICK GLU 127 mg/dL High 74-106 [facility] Comment on above: Result Comment: BULL [place]AYOA OF PATIENT CARE PER NURSING PROTOCOL Performed By: #### L 501.080 #### [facility] [address] [place], [address] CBC W/Diff, Automatedon 11-10 Absolute Neut Normal 2.0-7.7 [facility] Comment on above: Result Comment: DUPL ICATE Performed By: #### L 500.2500, L100.0100 #### [facility] [address] [place], [address] HCT Normal 37-47 [facility] Comment on above: Result Comment: DUPL ICATE Performed By: #### L 500.2500, L100.0100 #### [facility] [address] [place], [address] HGB Normal 12.0-15.0 [facility] Comment on above: Result Comment: DUPL ICATE Performed By: #### L 500.2500, L100.0100 #### [facility] [address] [place], [address] MCH Normal 27.0-32.0 [facility] Comment on above: Result Comment: DUPL ICATE Performed By: #### L 500.2500, L100.0100 #### [facility] [address] [place], [address] MCHC Normal 32-36 [facility] Comment on above: Result Comment: DUPL ICATE Performed By: #### L 500.2500, L100.0100 #### [facility] [address] [place], [address] MCV Normal 81-99 [facility] Comment on above: Result Comment: DUPL ICATE Performed By: #### L 500.2500, L100.0100 #### [facility] [address] [place], [address] NEUT% Normal 47-70 [facility] Comment on above: Result Comment: DUPL ICATE Performed By: #### L 500.2500, L100.0100 #### [facility] [address] [place], [address] PLT Normal 150-450 [facility] Comment on above: Result Comment: DUPL ICATE Performed By: #### L 500.2500, L100.0100 #### [facility] [address] [place], [address] RBC Normal 4.2-5.4 [facility] Comment on above: Result Comment: DUPL ICATE Performed By: #### L 500.2500, L100.0100 #### [facility] [address] [place], [address] RDW CV Normal 11.6-14.6 [facility] Comment on above: Result Comment: DUPL ICATE Performed By: #### L 500.2500, L100.0100 #### [facility] [address] [place], [address] RDW SD Normal 35.1-43.9 [facility] Comment on above: Result Comment: DUPL ICATE Performed By: #### L 500.2500, L100.0100 #### [facility] [address] [place], [address] WBC Normal 4.4-11.0 [facility] Comment on above: Result Comment: DUPL ICATE Performed By: #### L 500.2500, L100.0100 #### [facility] [address] [place], [address] Absolute Lymph 5.24 X10 3/uL High 0.83-4.51 [facility] Comment on above: Performed By: #### L 700.6800, L100.0100, L500.2500 #### [facility] [address] [place], [address] Absolute Neut 6.1 X10 3/uL Normal 2.0-7.7 [facility] Comment on above: Performed By: #### L 700.6800, L100.0100, L500.2500 #### [facility] [address] [place], [address] Basophils/100 WBC (Bld) 0.6 % Normal 0-1 [facility] Comment on above: Performed By: #### L 700.6800, L100.0100, L500.2500 #### [facility] [address] [place], [address] Eosinophils/100 WBC (Bld) 0.5 % Normal 0-5 [facility] Comment on above: Performed By: #### L 700.6800, L100.0100, L500.2500 #### [facility] [address] [place], [address] Erythrocyte distribution width (RBC) [Ratio] 13.7 % Normal 11.6-14.6 [facility] Comment on above: Performed By: #### L 700.6800, L100.0100, L500.2500 #### [facility] [address] [place], [address] Hematocrit (Bld) [Volume fraction] 37.0 % Normal 37-47 [facility] Comment on above: Performed By: #### L 700.6800, L100.0100, L500.2500 #### [facility] [address] [place], [address] Hemoglobin (Bld) [Mass/Vol] 12.1 g/dL Normal 12.0-15.0 [facility] Comment on above: Performed By: #### L 700.6800, L100.0100, L500.2500 #### [facility] [address] [place], [address] IG% 0.800 Normal 0.0-0.9 [facility] Comment on above: Result Comment: IG% - Immature Granulocytes (promyelocytes, myelocytes and metamyelocytes) > 1% indicates that a LEFT SHIFT is Present. Performed By: #### L 700.6800, L100.0100, L500.2500 #### [facility] [address] [place], [address] Lymphocytes/100 WBC (Bld) 43.0 % High 19-41 [facility] Comment on above: Performed By: #### L 700.6800, L100.0100, L500.2500 #### [facility] [address] [place], [address] MCH (RBC) [Entitic mass] 27.3 pg Normal 27.0-32.0 [facility] Comment on above: Performed By: #### L 700.6800, L100.0100, L500.2500 #### [facility] [address] [place], [address] MCHC (RBC) [Mass/Vol] 32.7 g/dL Normal 32-36 [facility] Comment on above: Performed By: #### L 700.6800, L100.0100, L500.2500 #### [facility] [address] [place], [address] MCV (RBC) [Entitic vol] 83.3 fL Normal 81-99 [facility] Comment on above: Performed By: #### L 700.6800, L100.0100, L500.2500 #### [facility] [address] [place], [address] Monocytes/100 WBC (Bld) 5.3 % Normal 0-10 [facility] Comment on above: Performed By: #### L 700.6800, L100.0100, L500.2500 #### [facility] [address] [place], [address] Neutrophils/100 WBC (Bld) 49.8 % Normal 47-70 [facility] Comment on above: Performed By: #### L 700.6800, L100.0100, L500.2500 #### [facility] [address] [place], [address] Nucleated RBC (Bld) [#/Vol] 0 10*3/uL Normal 0-5 [facility] Comment on above: Performed By: #### L 700.6800, L100.0100, L500.2500 #### [facility] [address] [place], [address] Platelet mean volume (Bld) [Entitic vol] 9.3 fL Normal 6.2-12.0 [facility] Comment on above: Performed By: #### L 700.6800, L100.0100, L500.2500 #### [facility] [address] [place], [address] Platelets (Bld) [#/Vol] 400 10*3/uL Normal 150-450 [facility] Comment on above: Performed By: #### L 700.6800, L100.0100, L500.2500 #### [facility] [address] [place], [address] RBC (Bld) [#/Vol] 4.44 10*6/uL Normal 4.2-5.4 [facility] Comment on above: Performed By: #### L 700.6800, L100.0100, L500.2500 #### [facility] [address] [place], [address] RDW SD 41.8 fl Normal 35.1-43.9 [facility] Comment on above: Performed By: #### L 700.6800, L100.0100, L500.2500 #### [facility] [address] [place], [address] WBC (Bld) [#/Vol] 12.2 10*3/uL High 4.4-11.0 [facility] Comment on above: Performed By: #### L 700.6800, L100.0100, L500.2500 #### [facility] [address] [place], [address] Carbon dioxide, total [Moles /volume] in Central venous bloodOrdered By: Gale Lr on 11-28-2024 CO2 [Moles/Vol] 24.7 mmol/L 21.0-32.0 [facility] Chloride assayOrdered By: Sun Lr on 11-28-2024 Chloride [Moles/Vol] 104 mmol/L 98-108 [facility] Eosinophil percentageOrdered By: Gale Lr on 11-28-2024 Eosinophils/100 WBC (Bld) 0.5 % 0-5 [facility] Erythrocyte distribution wid th ratioOrdered By: Gale Lr on 11-28-2024 Erythrocyte distribution width (RBC) [Ratio] 13.7 % 11.6-14.6 [facility] Erythrocyte distribution wid th standard deviationOrdered By: Gale Lr on 11-28-2024 Erythrocyte distribution width (RBC) [Ratio] 41.8 fl 35.1-43.9 [facility] Glomerular filtration rate ( GFR) estimation/1.73 sq m using serum, plasma, or whole bOrdered By: Gale Lr on 11-28-2024 GFR/1.73 sq M.predicted among non-blacks MDRD (S/P/Bld) [Vol rate/Area] 75 mL/min/{1.73_m2} >60 [facility] Comment on above: mL/min/1.73m2 CKD-EP I Creatinine Equation (2020) [facility] deOrdered By: Gale Lr on 11-28-2024 Glucose [Mass/Vol] 127 mg/dL High 74-106 [facility] Comment on above: MANAGEMENT OF PATIEN T CARE PER NURSING PROTOCOL Hematocrit Auto (Bld) [Volum e fraction]Ordered By: Gale Lr on 11-28-2024 Hematocrit (Bld) [Volume fraction] 37.0 % 37-47 [facility] Hemoglobin measurementOrdere d By: Gale Lr on 11-28-2024 Hemoglobin (Bld) [Mass/Vol] 12.1 g/dL 12.0-15.0 [facility] Immature granulocytes/100 WB C Auto (Bld)Ordered By: Gale Lr on 11-28-2024 Immature granulocytes/100 WBC (Bld) 0.800 % 0.0-0.9 [facility] Comment on above: IG% - Immature Granu locytes (promyelocytes, myelocytes and metamyelocytes) > 1% indicates that a LEFT SHIFT is Present. MCV (mean corpuscular volume ) determinationOrdered By: Gale Lr on 11-28-2024 MCV (RBC) [Entitic vol] 83.3 fL 81-99 [facility] Mean corpuscular hemoglobin (MCH) determinationOrdered By: Gale Lr on 11-28-2024 MCH (RBC) [Entitic mass] 27.3 pg 27.0-32.0 [facility] Mean corpuscular hemoglobin concentration (MCHC) determinationOrdered By: Gale Lr on 11-28-2024 MCHC (RBC) [Mass/Vol] 32.7 g/dL 32-36 [facility] Mean platelet volume determi nationOrdered By: Gale Lr on 11-28-2024 Platelet mean volume (Bld) [Entitic vol] 9.3 fL 6.2-12.0 [facility] Monocyte percentageOrdered B y: Gale Lr on 11-28-2024 Monocytes/100 WBC (Bld) 5.3 % 0-10 [facility] Neutrophil percentageOrdered By: Gale Lr on 11-28-2024 Neutrophils/100 WBC (Bld) 49.8 % 47-70 [facility] Nucleated red blood cell per centageOrdered By: Gale Lr on 11-28-2024 Nucleated RBC/100 WBC (Bld) [Ratio] 0 % 0-5 [facility] Platelet countOrdered By: Sun Lr on 11-28-2024 Platelets (Bld) [#/Vol] 400 10*3/uL 150-450 [facility] Potassium measurement (mass/ volume)Ordered By: Gale Lr on 11-28-2024 Potassium (Unsp spec) [Mass/Vol] 3.5 mmol/L 3.3-5.1 [facility] RBC Auto (Bld) [#/Vol]Ordere d By: Gale Lr on 11-28-2024 RBC (Bld) [#/Vol] 4.44 10*6/uL 4.2-5.4 [facility] Serum creatinine measurement (mass/volume)Ordered By: Gale Lr on 11-28-2024 Creatinine [Mass/Vol] 1.02 mg/dL 0.70-1.20 [facility] Serum glucose measurement (m ass/volume)Ordered By: Gale Lr on 11-28-2024 Glucose [Mass/Vol] 134 mg/dL High 70-99 [facility] Serum or plasma calcium hussein urement (mass/volume)Ordered By: Gale Lr on 11-28-2024 Calcium [Mass/Vol] 7.9 mg/dL 7.6-11.0 [facility] Serum or plasma urea nitroge n measurement (mass/volume)Ordered By: Gale Lr on 11-28-2024 Urea nitrogen [Mass/Vol] 12 mg/dL 4-19 [facility] Sodium levelOrdered By: Argelia Lr on 11-28-2024 Sodium [Moles/Vol] 141 mmol/L 133-145 [facility] White blood cell (WBC) count Ordered By: Gale Lr on 11-28-2024 WBC (Bld) [#/Vol] 12.2 10*3/uL High 4.4-11.0 [facility] Abdomen/Pelvis WITH Contrast on 11-27-2024 Abdomen/Pelvis WITH Contrast [facility] [address] [place], [place] [address] Abdomen/Pelvis WITH Contrast MR#: [id number] Acct: [id number] Name: GHISLAINE GIVENS Rep #: [id number] : 1990 F 34 From: Bernard ruelas MD PCP: BROOKLYN Warren, SURFACE GRINDER TENDER-C Status: ADM IN Study: Abdomen/Pelvis WITH Contrast Date of Exam: Exam# [id number] Ordering Dr: Clare Loo A-C PROCEDURE: ABDOMEN/PELVIS [...] as compared to prior study. Reading Location: [place] [address] CC: ESCOBAR Loo; [facility] PATRICE Solorzano Lye Bath Operator: Signed Normal [facility] Basic Metabolic Profile (BMP )on 11-27-2024 BUN/CRE 15.0 RATIO Normal 10-20 [facility] Comment on above: Performed By: #### L 500.2500, L100.0100 #### [facility] [address] [place], [address] Calcium [Mass/Vol] 7.9 mg/dL Normal 7.6-11.0 [facility] Comment on above: Performed By: #### L 500.2500, L100.0100 #### [facility] [address] [place], [address] Chloride [Moles/Vol] 102 mmol/L Normal 98-108 [facility] Comment on above: Performed By: #### L 500.2500, L100.0100 #### [facility] [address] [place], [address] CO2 [Moles/Vol] 24.2 mmol/L Normal 21.0-32.0 [facility] Comment on above: Performed By: #### L 500.2500, L100.0100 #### [facility] [address] [place], [address] Creatinine [Mass/Vol] 1.07 mg/dL Normal 0.70-1.20 [facility] Comment on above: Performed By: #### L 500.2500, L100.0100 #### [facility] [address] [place], [address] ECRCL 95.16 ml/min Normal 50-250 [facility] Comment on above: Performed By: #### L 500.2500, L100.0100 #### [facility] [address] [place], [address] GAP 13 Normal 5-15 [facility] Comment on above: Performed By: #### L 500.2500, L100.0100 #### [facility] [address] [place], [address] GFR/1.73 sq M.predicted among non-blacks MDRD (S/P/Bld) [Vol rate/Area] 71 mL/min/{1.73_m2} Normal >60 [facility] Comment on above: Result Comment: mL/m in/1.73m2 CKD-EPI Creatinine Equation (2020) Performed By: #### L 500.2500, L100.0100 #### [facility] [address] [place], [address] Glucose [Mass/Vol] 217 mg/dL High 70-99 [facility] Comment on above: Performed By: #### L 500.2500, L100.0100 #### [facility] [address] [place], [address] Potassium [Moles/Vol] 4.1 mmol/L Normal 3.3-5.1 [facility] Comment on above: Performed By: #### L 500.2500, L100.0100 #### [facility] [address] [place], [address] Sodium [Moles/Vol] 139 mmol/L Normal 133-145 [facility] Comment on above: Performed By: #### L 500.2500, L100.0100 #### [facility] [address] [place], [address] Urea nitrogen [Mass/Vol] 16 mg/dL Normal 4-19 [facility] Comment on above: Performed By: #### L 500.2500, L100.0100 #### [facility] [address] [place], [address] Bedside Glucoseon 11-27-2024 FINGERSTICK GLU 175 mg/dL High -106 [facility] Comment on above: Result Comment: BULL GEMENT OF PATIENT CARE PER NURSING PROTOCOL Performed By: #### L 500.2500, L100.0100 #### [facility] [address] [place], [place], [address] FINGERSTICK GLU 147 mg/dL High 74-106 [facility] Comment on above: Result Comment: BULL GEMENT OF PATIENT CARE PER NURSING PROTOCOL Performed By: #### L 500.2500, L100.0100 #### [facility] [address] [place], [address] FINGERSTICK GLU 197 mg/dL High -106 [facility] Comment on above: Result Comment: BULL GEMENT OF PATIENT CARE PER NURSING PROTOCOL Performed By: #### L 500.2500, L100.0100 #### [facility] [address] [place], [address] FINGERSTICK GLU 185 mg/dL High -106 [facility] Comment on above: Result Comment: BULL GEMENT OF PATIENT CARE PER NURSING PROTOCOL Performed By: #### L 500.2500, L100.0100 #### [facility] [address] [place], [address] Bilirubin directOrdered By: Gale Lr on 11-27-2024 Bilirubin.direct [Mass/Vol] 0.14 mg/dL 0.00-0.30 [facility] Bilirubin, totalOrdered By: Gale Lr on 11-27-2024 Bilirubin [Mass/Vol] 0.35 mg/dL 0.00-1.30 [facility] CBC W/Diff, Automatedon 11-09 Absolute Lymph 2.31 X10 3/uL Normal 0.83-4.51 [facility] Comment on above: Performed By: #### L 500.2500, L100.0100 #### [facility] [address] [place], [address] Absolute Neut 9.7 X10 3/uL High 2.0-7.7 [facility] Comment on above: Performed By: #### L 500.2500, L100.0100 #### [facility] [address] [place], [address] Basophils/100 WBC (Bld) 0.2 % Normal 0-1 [facility] Comment on above: Performed By: #### L 500.2500, L100.0100 #### [facility] [address] [place], [address] Eosinophils/100 WBC (Bld) 0.0 % Normal 0-5 [facility] Comment on above: Performed By: #### L 500.2500, L100.0100 #### [facility] [address] [place], [address] Erythrocyte distribution width (RBC) [Ratio] 13.8 % Normal 11.6-14.6 [facility] Comment on above: Performed By: #### L 500.2500, L100.0100 #### [facility] [address] [place], [address] Hematocrit (Bld) [Volume fraction] 34.7 % Low 37-47 [facility] Comment on above: Performed By: #### L 500.2500, L100.0100 #### [facility] [address] [place], [address] Hemoglobin (Bld) [Mass/Vol] 11.3 g/dL Low 12.0-15.0 [facility] Comment on above: Performed By: #### L 500.2500, L100.0100 #### [facility] [address] [place], [address] IG% 0.600 Normal 0.0-0.9 [facility] Comment on above: Result Comment: IG% - Immature Granulocytes (promyelocytes, myelocytes and metamyelocytes) > 1% indicates that a LEFT SHIFT is Present. Performed By: #### L 500.2500, L100.0100 #### [facility] [address] [place], [address] Lymphocytes/100 WBC (Bld) 18.1 % Low 19-41 [facility] Comment on above: Performed By: #### L 500.2500, L100.0100 #### [facility] [address] [place], [address] MCH (RBC) [Entitic mass] 27.0 pg Normal 27.0-32.0 [facility] Comment on above: Performed By: #### L 500.2500, L100.0100 #### [facility] [address] [place], [address] MCHC (RBC) [Mass/Vol] 32.6 g/dL Normal 32-36 [facility] Comment on above: Performed By: #### L 500.2500, L100.0100 #### [facility] [address] [place], [address] MCV (RBC) [Entitic vol] 83.0 fL Normal 81-99 [facility] Comment on above: Performed By: #### L 500.2500, L100.0100 #### [facility] [address] [place], [address] Monocytes/100 WBC (Bld) 5.2 % Normal 0-10 [facility] Comment on above: Performed By: #### L 500.2500, L100.0100 #### [facility] [address] [place], [address] Neutrophils/100 WBC (Bld) 75.9 % High 47-70 [facility] Comment on above: Performed By: #### L 500.2500, L100.0100 #### [facility] [address] [place], [address] Nucleated RBC (Bld) [#/Vol] 0 10*3/uL Normal 0-5 [facility] Comment on above: Performed By: #### L 500.2500, L100.0100 #### [facility] [address] [place], [address] Platelet mean volume (Bld) [Entitic vol] 9.6 fL Normal 6.2-12.0 [facility] Comment on above: Performed By: #### L 500.2500, L100.0100 #### [facility] [address] [place], [address] Platelets (Bld) [#/Vol] 354 10*3/uL Normal 150-450 [facility] Comment on above: Performed By: #### L 500.2500, L100.0100 #### [facility] [address] [place], [address] RBC (Bld) [#/Vol] 4.18 10*6/uL Low 4.2-5.4 [facility] Comment on above: Performed By: #### L 500.2500, L100.0100 #### [facility] [address] [place], [address] RDW SD 42.2 fl Normal 35.1-43.9 [facility] Comment on above: Performed By: #### L 500.2500, L100.0100 #### [facility] [address] [place], [address] WBC (Bld) [#/Vol] 12.8 10*3/uL High 4.4-11.0 [facility] Comment on above: Performed By: #### L 500.2500, L100.0100 #### [facility] [address] [place], [address] Laboratory - Chemistry and C hemistry - challengeOrdered By: Gale Lr on 11-27-2024 AST [Catalytic activity/Vol] 21 U/L <32 [facility] Liver Profileon 11-27-2024 Albumin [Mass/Vol] 3.5 g/dL Normal 3.5-5.0 [facility] Comment on above: Performed By: #### L 500.3400 #### [facility] [address] [place], [address] ALK PHOS 88 U/L Normal 35-104 [facility] Comment on above: Performed By: #### L 500.3400 #### [facility] [address] [place], [address] ALT [Catalytic activity/Vol] 12 U/L Normal <=34 [facility] Comment on above: Performed By: #### L 500.3400 #### [facility] [address] [place], [address] AST [Catalytic activity/Vol] 21 U/L Normal <=31 [facility] Comment on above: Performed By: #### L 500.3400 #### [facility] [address] [place], [address] Bilirubin [Mass/Vol] 0.35 mg/dL Normal 0.00-1.30 [facility] Comment on above: Performed By: #### L 500.3400 #### [facility] [address] [place], [place], [address] Bilirubin.direct [Mass/Vol] 0.14 mg/dL Normal 0.00-0.30 [facility] Comment on above: Performed By: #### L 500.3400 #### [facility] [address] [place], [place], [id number] Globulin (S) [Mass/Vol] 3.6 g/dL Normal 2.2-4.2 [facility] Comment on above: Performed By: #### L 500.3400 #### [facility] [address] [place], [place], [id number] (042) T PROT 7.1 g/dL Normal 5.9-8.4 [facility] Comment on above: Performed By: #### L 500.3400 #### [facility] [address] [place], [place], [id number] Serum globulin measurementOr dered By: Gale Lr on 11-27-2024 Globulin (S) [Mass/Vol] 3.6 g/dL 2.2-4.2 [facility] Serum or plasma alanine jordan otransferase (ALT) measurementOrdered By: Gale Lr on 11-27-2024 ALT [Catalytic activity/Vol] 12 U/L <35 [facility] Serum or plasma albumin hussein urement (mass/volume)Ordered By: Gale Lr on 11-27-2024 Albumin [Mass/Vol] 3.5 g/dL 3.5-5.0 [facility] Serum or plasma alkaline bradley sphatase measurementOrdered By: Gale Lr on 11-27-2024 ALP [Catalytic activity/Vol] 88 U/L 35-104 [facility] Total proteinOrdered By: Sugar Lr on 11-27-2024 Protein [Mass/Vol] 7.1 g/dL 5.9-8.4 [facility] Abdomen Single Viewon 2024 Abdomen Single View [facility] Imaging Services [address] [place], [place] [address] [phone] Abdomen Single View MR#: [id number] Acct: [id number] Name: GHISLAINE GIVENS Rep #: [id number] : 1990 F 34 From: Frantz Barfield MD PCP: Amy Solorzano, [facility], SURFACE GRINDER TENDER-C Status: ADM IN Study: Abdomen Single View Date of Exam: 11/26/24 Exam# [id number] Ordering Dr: Annalise Welch MD EXAM: XR Abdomen, 1 View CLINICAL INDICATION: FECAL IMPACTION-RECTUM TECHNIQUE: Frontal supine view of the abdomen/pelvis. COMPARISON: No relevant prior studies available. FINDINGS: GASTROINTESTINAL TRACT: Constipation with suggestion of fecal impaction of the rectum. No dilation. BONES/JOINTS: Unremarkable. No acute fracture. RAD/Abdomen Single View IMPRESSION: Constipation with suggestion of fecal impaction of the rectum. Reading Location: [id number] CC: [facility] SURFACE GRINDER TENDER-C Amy Solorzano; Dr. Annalise Welch MD Lye Bath Operator: Signed Normal [facility] Basic Metabolic Profile (BMP )on 11-26-2024 BUN/CRE 15.0 RATIO Normal 10-20 [facility] Comment on above: Performed By: #### L 500.3400 #### [facility] [address] [place], [address] Calcium [Mass/Vol] 7.8 mg/dL Normal 7.6-11.0 [facility] Comment on above: Performed By: #### L 500.3400 #### [facility] [address] [place], [address] Chloride [Moles/Vol] 104 mmol/L Normal 98-108 [facility] Comment on above: Performed By: #### L 500.3400 #### [facility] [address] [facility] [address] CO2 [Moles/Vol] 22.6 mmol/L Normal 21.0-32.0 [facility] Comment on above: Performed By: #### L 500.3400 #### [facility] [address] [place], [address] Creatinine [Mass/Vol] 1.16 mg/dL Normal 0.70-1.20 [facility] Comment on above: Performed By: #### L 500.3400 #### [facility] [address] [place], [address] ECRCL 87.78 ml/min Normal 50-250 [facility] Comment on above: Performed By: #### L 500.3400 #### [facility] [address] [place], [address] GAP 11 Normal 5-15 [facility] Comment on above: Performed By: #### L 500.3400 #### [facility] [address] [place], [address] GFR/1.73 sq M.predicted among non-blacks MDRD (S/P/Bld) [Vol rate/Area] 64 mL/min/{1.73_m2} Normal >60 [facility] Comment on above: Result Comment: mL/m in/1.73m2 CKD-EPI Creatinine Equation (2020) Performed By: #### L 500.3400 #### [facility] [address] [place], [address] Glucose [Mass/Vol] 148 mg/dL High 70-99 [facility] Comment on above: Performed By: #### L 500.3400 #### [facility] [address] [place], [address] Potassium [Moles/Vol] 4.0 mmol/L Normal 3.3-5.1 [facility] Comment on above: Performed By: #### L 500.3400 #### [facility] [address] [place], [address] Sodium [Moles/Vol] 137 mmol/L Normal 133-145 [facility] Comment on above: Performed By: #### L 500.3400 #### [facility] [address] [place], [address] Urea nitrogen [Mass/Vol] 17 mg/dL Normal 4-19 [facility] Comment on above: Performed By: #### L 500.3400 #### [facility] [address] [place], [address] Bedside Glucoseon 11-26-2024 FINGERSTICK GLU 185 mg/dL High 74-106 [facility] Comment on above: Result Comment: BULL GEMENT OF PATIENT CARE PER NURSING PROTOCOL Performed By: #### L 501.080 #### [facility] [address] [place], [address] FINGERSTICK GLU 218 mg/dL High 74-106 [facility] Comment on above: Result Comment: BULL GEMENT OF PATIENT CARE PER NURSING PROTOCOL Performed By: #### L 700.6800, L100.0100, L500.2500 #### [facility] [address] [place], [address] FINGERSTICK GLU 202 mg/dL High -106 [facility] Comment on above: Result Comment: BULL GEMENT OF PATIENT CARE PER NURSING PROTOCOL Performed By: #### L 500.2500, L100.0100 #### [facility] [address] [place], [address] FINGERSTICK GLU 160 mg/dL High 74-106 [facility] Comment on above: Result Comment: BULL GEMENT OF PATIENT CARE PER NURSING PROTOCOL Performed By: #### L 700.6800, L100.0100, L500.2500 #### [facility] [address] [place], [address] FINGERSTICK GLU 166 mg/dL High -106 [facility] Comment on above: Result Comment: BULL GEMENT OF PATIENT CARE PER NURSING PROTOCOL Performed By: #### L 500.2500, L100.0100 #### [facility] [address] [place], [address] CBC W/Diff, Automatedon 05-1 -2024 Absolute Lymph 3.42 X10 3/uL Normal 0.83-4.51 [facility] Comment on above: Performed By: #### L 500.2500, L100.0100 #### [facility] [address] [place], [address] Absolute Neut 12.9 X10 3/uL High 2.0-7.7 [facility] Comment on above: Performed By: #### L 500.2500, L100.0100 #### [facility] [address] [place], [address] Basophils/100 WBC (Bld) 0.2 % Normal 0-1 [facility] Comment on above: Performed By: #### L 500.2500, L100.0100 #### [facility] [address] [place], [address] Eosinophils/100 WBC (Bld) 0.2 % Normal 0-5 [facility] Comment on above: Performed By: #### L 500.2500, L100.0100 #### [facility] [address] [place], [address] Erythrocyte distribution width (RBC) [Ratio] 13.9 % Normal 11.6-14.6 [facility] Comment on above: Performed By: #### L 500.2500, L100.0100 #### [facility] [address] [place], [address] Hematocrit (Bld) [Volume fraction] 34.2 % Low 37-47 [facility] Comment on above: Performed By: #### L 500.2500, L100.0100 #### [facility] [address] [place], [address] Hemoglobin (Bld) [Mass/Vol] 11.0 g/dL Low 12.0-15.0 [facility] Comment on above: Performed By: #### L 500.2500, L100.0100 #### [facility] [address] [place], [address] IG% 0.600 Normal 0.0-0.9 [facility] Comment on above: Result Comment: IG% - Immature Granulocytes (promyelocytes, myelocytes and metamyelocytes) > 1% indicates that a LEFT SHIFT is Present. Performed By: #### L 500.2500, L100.0100 #### [facility] [address] [place], [address] Lymphocytes/100 WBC (Bld) 19.4 % Normal 19-41 [facility] Comment on above: Performed By: #### L 500.2500, L100.0100 #### [facility] [address] [place], [address] MCH (RBC) [Entitic mass] 27.0 pg Normal 27.0-32.0 [facility] Comment on above: Performed By: #### L 500.2500, L100.0100 #### [facility] [address] [place], [address] MCHC (RBC) [Mass/Vol] 32.2 g/dL Normal 32-36 [facility] Comment on above: Performed By: #### L 500.2500, L100.0100 #### [facility] [address] [place], [address] MCV (RBC) [Entitic vol] 83.8 fL Normal 81-99 [facility] Comment on above: Performed By: #### L 500.2500, L100.0100 #### [facility] [address] [place], [address] Monocytes/100 WBC (Bld) 6.2 % Normal 0-10 [facility] Comment on above: Performed By: #### L 500.2500, L100.0100 #### [facility] [address] [place], [address] Neutrophils/100 WBC (Bld) 73.4 % High 47-70 [facility] Comment on above: Performed By: #### L 500.2500, L100.0100 #### [facility] [address] [place], [address] Nucleated RBC (Bld) [#/Vol] 0 10*3/uL Normal 0-5 [facility] Comment on above: Performed By: #### L 500.2500, L100.0100 #### [facility] [address] [place], [address] Platelet mean volume (Bld) [Entitic vol] 9.8 fL Normal 6.2-12.0 [facility] Comment on above: Performed By: #### L 500.2500, L100.0100 #### [facility] [address] [place], [address] Platelets (Bld) [#/Vol] 308 10*3/uL Normal 150-450 [facility] Comment on above: Performed By: #### L 500.2500, L100.0100 #### [facility] [address] [place], [address] RBC (Bld) [#/Vol] 4.08 10*6/uL Low 4.2-5.4 [facility] Comment on above: Performed By: #### L 500.2500, L100.0100 #### [facility] [address] [place], [address] RDW SD 43.0 fl Normal 35.1-43.9 [facility] Comment on above: Performed By: #### L 500.2500, L100.0100 #### [facility] [address] [place], [address] WBC (Bld) [#/Vol] 17.6 10*3/uL High 4.4-11.0 [facility] Comment on above: Performed By: #### L 500.2500, L100.0100 #### [facility] [address] [place], [place], [address] Abdomen/Pelvis W IV Cont ONL Yon 11-25-2024 Abdomen/Pelvis W IV Cont ONLY [facility] Imaging Services [address] [place] [address] Abdomen/Pelvis W IV Cont ONLY MR#: [id number] Acct: [id number] Name: GHISLAINE GIVENS Rep #: [id number] : 1990 F 34 From: Frantz Barfield MD PCP: [place], SURFACE GRINDER TENDER-C Status: [facility] ER Study: Abdomen/Pelvis W IV Cont ONLY Date of Exam: Exam# [id number] Ordering Dr: Drew Hinson MD EXAM: CT [...] 2. Hepatomegaly with fatty infiltration. Reading Location: [facility] CC: [facility] SURFACE GRINDER TENDER-C Amy Solorzano; Dr. Drew Hinson MD Lye Bath Operator: Signed Normal [facility] Absolute lymphocyte countOrd ered By: Drew Hinson on 11-25-2024 Lymphocytes Auto (Unsp spec) [#/Vol] 3.09 10*3/uL 0.83-4.51 [facility] Absolute neutrophil countOrd ered By: Drew Hinson on 11-25-2024 Neutrophils (Bld) [#/Vol] 21.5 10*3/uL High 2.0-7.7 [facility] Acute Abdomen Inc Cheston Acute Abdomen Inc Chest [facility] Imaging Services [address] [place], [place] [id number] Acute Abdomen Inc Chest MR#: [id number] Acct: [id number] Name: GHISLAINE GIVENS Rep #: [id number] : 1990 F 34 From: Frantz Barfield MD PCP: Amy Solorzano [facility], SURFACE GRINDER TENDER-C Status: REG ER Study: Acute Abdomen Inc Chest Date of Exam: 11/25/24 Exam# [id number] Ordering Dr: Drew Hinson MD EXAM: XR [...] the colon consistent with constipation. Reading Location: [facility] CC: [facility] SURFACE GRINDER TENDERPanC Amy Solorzano; Dr. Drew Hinson MD Lye Bath Operator: Signed Normal [facility] Amorphous sediment detection in urine sediment by light microscopyOrdered By: Drew Hinson on 11-25-2024 Amorphous sediment LM Ql (Urine sed) 2+ URATE [facility] Anion gap in Serum or Plasma Ordered By: Drew Hinson on 11-25-2024 Anion gap [Moles/Vol] 17 mmol/L High 5-15 [facility] Automated lymphocyte count a s percentage of total leukocytesOrdered By: Drew Hinson on 11-25-2024 Lymphocytes/100 WBC Auto (Unsp spec) 11.4 % Low 19-41 [facility] BUN/creatinine ratioOrdered By: Drew Hinson on 11-25-2024 Urea nitrogen/Creatinine [Mass ratio] 15.9 mg/mg 04-30 [facility] Basic Metabolic Profile (BMP )on 11-25-2024 BUN/CRE 15.9 RATIO Normal 04-30 [facility] Comment on above: Performed By: #### L 700.6800, L100.0100, L500.2500 #### [facility] [address] [place], [address] Calcium [Mass/Vol] 9.6 mg/dL Normal 7.6-11.0 [facility] Comment on above: Performed By: #### L 700.6800, L100.0100, L500.2500 #### [facility] [address] [place], [address] Chloride [Moles/Vol] 97 mmol/L Low 98-108 [facility] Comment on above: Performed By: #### L 700.6800, L100.0100, L500.2500 #### [facility] [address] [place], [address] CO2 [Moles/Vol] 21.3 mmol/L Normal 21.0-32.0 [facility] Comment on above: Performed By: #### L 700.6800, L100.0100, L500.2500 #### [facility] [address] [place], [address] Creatinine [Mass/Vol] 1.20 mg/dL Normal 0.70-1.20 [facility] Comment on above: Performed By: #### L 700.6800, L100.0100, L500.2500 #### [facility] [address] [place], [address] ECRCL 86.69 ml/min Normal 50-250 [facility] Comment on above: Performed By: #### L 700.6800, L100.0100, L500.2500 #### [facility] [address] [place], [address] GAP 17 High 5-15 [facility] Comment on above: Performed By: #### L 700.6800, L100.0100, L500.2500 #### [facility] [address] [place], [address] GFR/1.73 sq M.predicted among non-blacks MDRD (S/P/Bld) [Vol rate/Area] 62 mL/min/{1.73_m2} Normal >60 [facility] Comment on above: Result Comment: mL/m in/1.73m2 CKD-EPI Creatinine Equation (2020) Performed By: #### L 700.6800, L100.0100, L500.2500 #### [facility] [address] [place], [address] Glucose [Mass/Vol] 203 mg/dL High 70-99 [facility] Comment on above: Performed By: #### L 700.6800, L100.0100, L500.2500 #### [facility] [address] [place], [address] Potassium [Moles/Vol] 4.0 mmol/L Normal 3.3-5.1 [facility] Comment on above: Performed By: #### L 700.6800, L100.0100, L500.2500 #### [facility] [address] [place], [address] Sodium [Moles/Vol] 135 mmol/L Normal 133-145 [facility] Comment on above: Performed By: #### L 700.6800, L100.0100, L500.2500 #### [facility] [address] [place], [address] Urea nitrogen [Mass/Vol] 19 mg/dL Normal 4-19 [facility] Comment on above: Performed By: #### L 700.6800, L100.0100, L500.2500 #### [facility] [address] [place], [address] Basophil percentageOrdered B y: Drew Hinson on 11-25-2024 Basophils/100 WBC (Bld) 0.3 % 0-1 [facility] Bedside Glucoseon 11-25-2024 FINGERSTICK GLU 139 mg/dL High 74-106 [facility] Comment on above: Result Comment: BULL [place]AY[place] OF PATIENT CARE PER NURSING PROTOCOL Performed By: #### L 500.3400 #### [facility] [address] [place], [address] Bilirubin Test strip Ql (U)O rdered By: Drew Hinson on 11-25-2024 Bilirubin Ql (U) 1 mg/dL High Negative [facility] Comment on above: COLOR OF URINE MAY A FFECT DIPSTICK RESULTS. Blood cultureOrdered By: Dwight Hinson on 11-25-2024 Bacteria identified Cx Nom (Bld) No growth in 5 days. [facility] Bacteria identified Cx Nom (Bld) No growth in 5 days. [facility] CBC W/Diff, Automatedon 11-09 PLT EST A Normal ADEQ [facility] Comment on above: Performed By: #### L 700.6800, L100.0100, L500.2500 #### [facility] Laboratory [address] [place], [address] Carbon dioxide, total [Moles /volume] in Central venous bloodOrdered By: Drew Sravan on 11-25-2024 CO2 [Moles/Vol] 21.3 mmol/L 21.0-32.0 [facility] Chloride assayOrdered By: Katia Hinson on 11-25-2024 Chloride [Moles/Vol] 97 mmol/L Low 98-108 [facility] Consultation - Surgicalon Consultation - Surgical [facility] Medical Records Department [address] [place] [address] Consultation - Surgical 11/25/242050 MR#: [id number] Acct: [id number] Name: GHISLAINE GIVENS Rep #: [id number] : 1990 34 From: Annalise Welch MD PCP: BROOKLYN Warren, SURFACE GRINDER TENDER-C Status:ADM IN Location: [place] [id number] Assessment Plan Assessment/Plan (1) Fecal impaction: (2) Acute proctitis: PLAN: Plan Discussed with patient would recommend additional enema to help soften the bowel of stool in the rectum. Along with additional ones after that. Continue IV Zosyn Discussed with patient plan to DC with laxatives. Annalise Welch M.D. Pager: [phone] [facility] [address] [place] [address], [facility], [address] [place] [address] Office: [phone] HPI Consult Data Date of Consult: 11/26/24 [...] and did have some results with it. [facility] [place] Medical History (Updated 11/25/24 @ 15:05 by [...] 79.5 H, Lymph % (Auto) 11.4 L, [place] (more content not included)... Normal [facility] Emergency Department Summary on 11-25-2024 Emergency Department Summary [facility] Medical Records Department [address] [place] [address] Emergency Department Summary 11/25/24 MR#: [id number] Acct: [id number] Name: GHISLAINE GIVENS Rep #: [id number] : 1990 34 From: Drew Hinson MD PCP: Amy Solorzano [facility], SURFACE GRINDER TENDER-C Status:REG ER Location: ED HPI HPI - [...] this diagnosis. No exacerbating or alleviating factors. [facility] Medical History Wears glasses History of [...] MDM N (more content not included)... Normal [facility] Eosinophil percentageOrdered By: Drew Hinson on 11-25-2024 Eosinophils/100 WBC (Bld) 0.1 % 0-5 [facility] Erythrocyte distribution wid th ratioOrdered By: Drew Hinson on 11-25-2024 Erythrocyte distribution width (RBC) [Ratio] 14.2 % 11.6-14.6 [facility] Erythrocyte distribution wid th standard deviationOrdered By: Drew Hinson on 11-25-2024 Erythrocyte distribution width (RBC) [Ratio] 41.1 fl 35.1-43.9 [facility] Glomerular filtration rate ( GFR) estimation/1.73 sq m using serum, plasma, or whole bOrdered By: Drew Hinson on 11-25-2024 GFR/1.73 sq M.predicted among non-blacks MDRD (S/P/Bld) [Vol rate/Area] 62 mL/min/{1.73_m2} >60 [facility] Comment on above: mL/min/1.73m2 CKD-EP I Creatinine Equation (2020) H AND P Exam - Hospitaliston 11-25-2024 H&P Exam - Hospitalist [facility] Medical Records Department [address] [place] [address] H P Exam - Hospitalist 11/25/24 1324 MR#: [id number] Acct: [id number] Name: GHISLAINE GIVENS Rep #: [id number] : 1990 34 From: Brenda Rao MD PCP: BROOKLYN Warren, SURFACE GRINDER TENDER-C Status:ADM IN Location: [facility] [id number] HPI - General General Date of Admission: [...] of severe constipation with likely overflow diarrhea. [facility] Medical History (Updated 11/25/24 @ 15:05 by [...] Pressure Hina (more content not included)... Normal [facility] Hematocrit Auto (Bld) [Volum e fraction]Ordered By: Drew Hinson on 11-25-2024 Hematocrit (Bld) [Volume fraction] 42.3 % 37-47 [facility] Hemoglobin measurementOrdere d By: Drew Hinson on 11-25-2024 Hemoglobin (Bld) [Mass/Vol] 14.1 g/dL 12.0-15.0 [facility] Hyaline casts LM.LPF (Urine sed) [#/Area]Ordered By: Drew Hinson on 11-25-2024 Hyaline casts (Urine sed) [#/Area] 0 /[LPF] 0-5 [facility] Immature granulocytes/100 WB C Auto (Bld)Ordered By: Drew Hinson on 11-25-2024 Immature granulocytes/100 WBC (Bld) 0.700 % 0.0-0.9 [facility] Comment on above: IG% - Immature Granu locytes (promyelocytes, myelocytes and metamyelocytes) > 1% indicates that a LEFT SHIFT is Present. Ketones Test strip Ql (U)Ord ered By: Drew Hinson on 11-25-2024 Ketones Ql (U) 5 mg/dl High Negative [facility] Lactic Acidon 11-25-2024 Lactate [Moles/Vol] 1.5 mmol/L Normal 0.0-2.0 [facility] Comment on above: Order Comment: Y Performed By: #### M 200.1000, L503.6005 #### [facility] [address] [place], [address] Lactic acid measurementOrder ed By: Drew Hinson on 11-25-2024 Lactate [Moles/Vol] 1.5 mmol/L 0.0-2.0 [facility] MCV (mean corpuscular volume ) determinationOrdered By: Drew Hinson on 11-25-2024 MCV (RBC) [Entitic vol] 81.2 fL 81-99 [facility] Mean corpuscular hemoglobin (MCH) determinationOrdered By: Drew Hinson on 11-25-2024 MCH (RBC) [Entitic mass] 27.1 pg 27.0-32.0 [facility] Mean corpuscular hemoglobin concentration (MCHC) determinationOrdered By: Drew Hinson on 11-25-2024 MCHC (RBC) [Mass/Vol] 33.3 g/dL 32-36 [facility] Mean platelet volume determi nationOrdered By: Drew Hinson on 11-25-2024 Platelet mean volume (Bld) [Entitic vol] 9.4 fL 6.2-12.0 [facility] Microscopic analysis of urin e for red blood cells (RBC)Ordered By: Drew Hinson on 11-25-2024 Microscopic analysis of urine for red blood cells (RBC) 0-5 SEEN /hpf 0-5 [facility] Monocyte percentageOrdered B y: Drew Hinson on 11-25-2024 Monocytes/100 WBC (Bld) 8.0 % 0-10 [facility] Mucus LM Ql (Urine sed)Order ed By: Drew Hinson on 11-25-2024 Mucus Ql (Urine sed) 0 SEEN /hpf [facility] Neutrophil percentageOrdered By: Drew Hinson on 11-25-2024 Neutrophils/100 WBC (Bld) 79.5 % High 47-70 [facility] Nitrite Test strip Ql (U)Ord ered By: Drew Hinson on 11-25-2024 Nitrite Ql (U) Negative Negative [facility] Nucleated red blood cell per centageOrdered By: Drew Hinson on 11-25-2024 Nucleated RBC/100 WBC (Bld) [Ratio] 0 % 0-5 [facility] Platelet countOrdered By: Katia Hinson on 11-25-2024 Platelets (Bld) [#/Vol] 400 10*3/uL 150-450 [facility] Platelet estimateOrdered By: Drew Hinson on 11-25-2024 Platelets LM Ql (Bld) A ADEQ [facility] Potassium measurement (mass/ volume)Ordered By: Drew Hinson on 11-25-2024 Potassium (Unsp spec) [Mass/Vol] 4.0 mmol/L 3.3-5.1 [facility] ,Serum,hCG Quali.on 11-25-2024 HCG, SERUM QUAL Negative Normal [facility] Comment on above: Performed By: #### L 700.6800, L100.0100, L500.2500 #### [facility] [address] [place] [address], [address] Protein Test strip Ql (U)Ord ered By: Drew Hinson on 11-25-2024 Protein Ql (U) 30 mg/dl High Negative [facility] RBC Auto (Bld) [#/Vol]Ordere d By: Drew Hinson on 11-25-2024 RBC (Bld) [#/Vol] 5.21 10*6/uL 4.2-5.4 [facility] Serum beta-hCG test, qualita tiveOrdered By: Drew Hinson on 11-25-2024 Beta HCG ( test) Ql Negative [facility] Serum creatinine measurement (mass/volume)Ordered By: Drew Hinson on 11-25-2024 Creatinine [Mass/Vol] 1.20 mg/dL 0.70-1.20 [facility] Serum glucose measurement (m ass/volume)Ordered By: Drew Hinson on 11-25-2024 Glucose [Mass/Vol] 203 mg/dL High 70-99 [facility] Serum or plasma calcium hussein urement (mass/volume)Ordered By: Drew Hinson on 11-25-2024 Calcium [Mass/Vol] 9.6 mg/dL 7.6-11.0 [facility] Serum or plasma urea nitroge n measurement (mass/volume)Ordered By: Drew Hinson on 11-25-2024 Urea nitrogen [Mass/Vol] 19 mg/dL 4-19 [facility] Sodium levelOrdered By: Drew Hinson on 11-25-2024 Sodium [Moles/Vol] 135 mmol/L 133-145 [facility] Squamous epithelial cells de tection in urine sediment by light microscopyOrdered By: Drew Hinson on 11-25-2024 Epithelial cells.squamous LM Ql (Urine sed) 0-5 SEEN /hpf 5-10 [facility] Urinalysis, Completeon 11-25 CAST,HYALINE 0-5 SEEN Normal 0-5 [facility] Comment on above: Order Comment: CLEAN CATCH Performed By: #### L 500.2500, L100.0100 #### [facility] [address] [place], [address] AMORPHOUS 2+ URATE Normal [facility] Comment on above: Order Comment: CLEAN CATCH Performed By: #### L 500.2500, L100.0100 #### [facility] [address] [place], [address] EPI,SQUAMOUS 0-5 SEEN Normal 5-10 [facility] Comment on above: Order Comment: CLEAN CATCH Performed By: #### L 500.2500, L100.0100 #### [facility] [address] [place], [address] RBC 0-5 SEEN Normal 0-5 [facility] Comment on above: Order Comment: CLEAN CATCH Performed By: #### L 500.2500, L100.0100 #### [facility] [address] [place], [address] WBC 0-5 SEEN Normal 0-5 [facility] Comment on above: Order Comment: CLEAN CATCH Performed By: #### L 500.2500, L100.0100 #### [facility] [address] [place], [address] BACTERIA 0 SEEN Normal None Seen [facility] Comment on above: Order Comment: CLEAN CATCH Performed By: #### L 500.2500, L100.0100 #### [facility] [address] [place], [address] Mucus Ql (Urine sed) 0 SEEN Normal [facility] Comment on above: Order Comment: CLEAN CATCH Performed By: #### L 500.2500, L100.0100 #### [facility] [address] [place], [address] Urine clarityOrdered By: Dwight Hinson on 11-25-2024 Clarity (U) Cloudy Clear [facility] Urine color determinationOrd ered By: Drew Hinson on 11-25-2024 Color (U) Yellow Yellow [facility] Urine glucose detectionOrder ed By: Drew Hinson on 11-25-2024 Glucose Ql (U) Normal mg/dl Normal [facility] Urine leukocyte esterase det ection by dipstickOrdered By: rDew Hinson on 11-25-2024 Leukocyte esterase Test strip Ql (U) Negative Negative [facility] Urine pHOrdered By: Drew castellanos on 11-25-2024 pH (U) 6.0 [pH] 5.0 - 8.0 [facility] Urine sediment bacteria coun t by microscopy (number/high power field)Ordered By: Drew Hinson on 11-25-2024 Bacteria LM.HPF (Urine sed) [#/Area] 0 /[HPF] None Seen [facility] Urine specific gravity measu rementOrdered By: Drew Hinson on 11-25-2024 Specific gravity (U) [Rel density] 1.025 1.002-1.030 [facility] Urine urobilinogen measureme ntOrdered By: Drew Hinson on 11-25-2024 Urobilinogen Ql (U) 1 mg/dl High Normal [facility] White blood cell (WBC) count Ordered By: Drew Hinson on 11-25-2024 WBC (Bld) [#/Vol] 27.0 10*3/uL High 4.4-11.0 [facility] White blood cell countOrdere d By: Drew Hinson on 11-25-2024 White blood cell count 0-5 SEEN /hpf 0-5 [facility] Arterial study reportOrdered By: Tony Dwyer on 10-25-2024 Noninvasive arteriosclerosis study report [facility] Cardiovascular Services [address] [place] [address] Lower Ext Art Exam w/o Exercis 10/25/24 0847 MR#: [id number] Acct: [id number] Name: GHISLAINE GIVENS Rep #:[id number] : 1990 34 From: Tony Dwyer MD Attending Dr: Dr. Abdirizak Forrest, DPM Status: REG CLI Ordering Dr: Abdirizak Forrest DPPrisca Date: 10/25/24 Location: [facility] Sex: F C Admitted: Reason For Study [...] MD CC: DPM Dr. Abdirizak Forrest; [facility] SURFACE GRINDER TENDER-C Amy Solorzano ~ Date Dictated: 10/25/24846 Date Transcribed: 10/25/242211 Lye Bath Operator: Signed [facility] Other Phone: Lower Ext Art Exam w/o Exerc rudy 10-25-2024 Lower Ext Art Exam w/o Exercis [facility] Cardi[facility] Services [address] [place] [address] Lower Ext Art Exam w/o Exercis 10/25/2447 MR#: [id number] Acct: [id number] Name: GHISLAINE GIVENS Rep #: [id number] : 1990 34 From: Tony Dwyer MD [...] Tony Dwyer MD CC: DPPrisca Forrest; [facility] SURFACE GR[employer]ER TENDER-C Amy Solorzano Date Dictated: 10/25/24 0847 Date Transcribed: 10/25/242211 Lye Bath Operator: Signed Normal [facility] Venous Duplex US - Tayo Extre [facility] 10-25-2024 Venous Duplex US - Tayo Extrem [facility] Cardiovascular Services [address] 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 [...] right proximal calf is incompetent. 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 Ordering Physician: Abdirizak Forrest Referring Physician: Amy Solorzano Performed By: Saima De La Torre, RVTed 10/25/242200 Date Tony Dwyer MD CC: DPM Dr. Abdirizak Forrest; [facility] SURFACE GR[employer] T[employer]ER-[employer] Amy Solorzano Date Dictated: 10/25/24805 Date Transcribed: 10/25/242200 Lye Bath Operator: Signed Normal [facility] Venous duplex ultrasound rep ortOrdered By: Tony Dwyer on 10-25-2024 US Vein [facility] [address] 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 [...] right proximal calf is incompetent. 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 Ordering Physician: Abdirizak Forrest Referring Physician: Amy Solorzano Performed By: Saima De La Torre RVT 10/25/242200 Date _ Tony Dwyer MD CC: DPPrisca Forrest; [facility] SURFACE GR[employer]ER TENDER-C Amy Solorzano ~ Date Dictated: 10/25/24805 Date Transcribed: 10/25/242200 Lye Bath Operator: Signed [facility] Other Phone: Absolute lymphocyte countOrd ered By: [facility] Amy Solorzano on 10-17-2024 Lymphocytes Auto (Unsp spec) [#/Vol] 3.16 10*3/uL 0.83-4.51 [facility] Absolute neutrophil countOrd ered By: [facility] Amy Solorzano on 10-17-2024 Neutrophils (Bld) [#/Vol] 6.6 10*3/uL 2.0-7.7 [facility] Albumin DL <= 20 mg/L (U) [M ass/Vol]Ordered By: [facility] Amy Solorzano on 10-17-2024 Urine Random Microalbumin < 12.0 mg/L NO RANGE EST. [facility] Anion gap in Serum or Plasma Ordered By: [facility] Amy Solorzano on 04-08-2025 Anion gap [Moles/Vol] 14 mmol/L 5-15 [facility] Automated lymphocyte count a s percentage of total leukocytesOrdered By: [facility] Amy Solorzano on 10-17-2024 Lymphocytes/100 WBC Auto (Unsp spec) 29.7 % 19- [facility] BUN/creatinine ratioOrdered By: [facility] Amy Solorzano on 10-17-2024 Urea nitrogen/Creatinine [Mass ratio] 14.4 mg/mg 10- [facility] Basophil percentageOrdered B y: [facility] Amy Solorzano on 10-17-2024 Basophils/100 WBC (Bld) 0.4 % 0-1 [facility] Bilirubin, totalOrdered By: [facility] Amy Solorzano on 10-17-2024 Bilirubin [Mass/Vol] 0.21 mg/dL 0.00-1.30 [facility] CBC W/Diff, Automatedon 04- Absolute Lymph 3.16 X10 3/uL Normal 0.83-4.51 [facility] Comment on above: Performed By: #### L 700.6800, L100.0100, L500.2500 #### [facility] [address] [place], [address] Absolute Neut 6.6 X10 3/uL Normal 2.0-7.7 [facility] Comment on above: Performed By: #### L 700.6800, L100.0100, L500.2500 #### [facility] [address] [place], [address] Basophils/100 WBC (Bld) 0.4 % Normal 0-1 [facility] Comment on above: Performed By: #### L 700.6800, L100.0100, L500.2500 #### [facility] [address] [place], [address] Eosinophils/100 WBC (Bld) 0.7 % Normal 0-5 [facility] Comment on above: Performed By: #### L 700.6800, L100.0100, L500.2500 #### [facility] [address] [place], [address] Erythrocyte distribution width (RBC) [Ratio] 14.1 % Normal 11.6-14.6 [facility] Comment on above: Performed By: #### L 700.6800, L100.0100, L500.2500 #### [facility] [address] [place], [address] Hematocrit (Bld) [Volume fraction] 39.5 % Normal 37-47 [facility] Comment on above: Performed By: #### L 700.6800, L100.0100, L500.2500 #### [facility] [address] [facility] [place], [address] Hemoglobin (Bld) [Mass/Vol] 12.8 g/dL Normal 12.0-15.0 [facility] Comment on above: Performed By: #### L 700.6800, L100.0100, L500.2500 #### [facility] [address] [place], [address] IG% 1.000 High 0.0-0.9 [facility] Comment on above: Result Comment: IG% - Immature Granulocytes (promyelocytes, myelocytes and metamyelocytes) > 1% indicates that a LEFT SHIFT is Present. Performed By: #### L 700.6800, L100.0100, L500.2500 #### [facility] [address] [place], [address] Lymphocytes/100 WBC (Bld) 29.7 % Normal 19-41 [facility] Comment on above: Performed By: #### L 700.6800, L100.0100, L500.2500 #### [facility] [address] [place], [address] MCH (RBC) [Entitic mass] 26.6 pg Low 27.0-32.0 [facility] Comment on above: Performed By: #### L 700.6800, L100.0100, L500.2500 #### [facility] [address] [place], [address] MCHC (RBC) [Mass/Vol] 32.4 g/dL Normal 32-36 [facility] Comment on above: Performed By: #### L 700.6800, L100.0100, L500.2500 #### [facility] [address] [place], [address] MCV (RBC) [Entitic vol] 82.1 fL Normal 81-99 [facility] Comment on above: Performed By: #### L 700.6800, L100.0100, L500.2500 #### [facility] [address] [place], [address] Monocytes/100 WBC (Bld) 6.0 % Normal 0-10 [facility] Comment on above: Performed By: #### L 700.6800, L100.0100, L500.2500 #### [facility] [address] [place], [address] Neutrophils/100 WBC (Bld) 62.2 % Normal 47-70 [facility] Comment on above: Performed By: #### L 700.6800, L100.0100, L500.2500 #### [facility] [address] [place], [address] Nucleated RBC (Bld) [#/Vol] 0 10*3/uL Normal 0-5 [facility] Comment on above: Performed By: #### L 700.6800, L100.0100, L500.2500 #### [facility] [address] [place], [address] Platelet mean volume (Bld) [Entitic vol] 9.7 fL Normal 6.2-12.0 [facility] Comment on above: Performed By: #### L 700.6800, L100.0100, L500.2500 #### [facility] [address] [place], [address] Platelets (Bld) [#/Vol] 332 10*3/uL Normal 150-450 [facility] Comment on above: Performed By: #### L 700.6800, L100.0100, L500.2500 #### [facility] [address] [place], [address] RBC (Bld) [#/Vol] 4.81 10*6/uL Normal 4.2-5.4 [facility] Comment on above: Performed By: #### L 700.6800, L100.0100, L500.2500 #### [facility] [address] [place], [address] RDW SD 41.9 fl Normal 35.1-43.9 [facility] Comment on above: Performed By: #### L 700.6800, L100.0100, L500.2500 #### [facility] [address] [place], [address] WBC (Bld) [#/Vol] 10.6 10*3/uL Normal 4.4-11.0 [facility] Comment on above: Performed By: #### L 700.6800, L100.0100, L500.2500 #### [facility] [address] [place], [address] Calculated very low density lipoprotein (VLDL) cholesterol measurementOrdered By: [facility] Amy Solorzano on 10-17-2024 Calculated very low density lipoprotein (VLDL) cholesterol measurement 57 mg/dL High 5-40 [facility] VLDL Cholesterol 57 mg/dL [facility] 5-40 [facility] Carbon dioxide, total [Moles /volume] in Central venous bloodOrdered By: [facility] Amy Solorzano on 10-17-2024 CO2 [Moles/Vol] 21.8 mmol/L 21.0-32.0 [facility] Chloride assayOrdered By: [facility] Amy Solorzano on 10-17-2024 Chloride [Moles/Vol] 99 mmol/L 98-108 [facility] Comprehensive Metabolic Prof ilon 10-17-2024 Albumin [Mass/Vol] 3.7 g/dL Normal 3.5-5.0 [facility] Comment on above: Performed By: #### L 700.6800, L100.0100, L500.2500 #### [facility] [address] [place], [address] Albumin/Globulin [Mass ratio] 0.9 {ratio} Normal 0.9-2.4 [facility] Comment on above: Performed By: #### L 700.6800, L100.0100, L500.2500 #### [facility] [address] [place], [address] ALK PHOS 93 U/L Normal 35-104 [facility] Comment on above: Performed By: #### L 700.6800, L100.0100, L500.2500 #### [facility] [address] [place], [address] ALT [Catalytic activity/Vol] 12 U/L Normal <=34 [facility] Comment on above: Performed By: #### L 700.6800, L100.0100, L500.2500 #### [facility] [address] [place], [address] AST [Catalytic activity/Vol] 18 U/L Normal <=31 [facility] Comment on above: Performed By: #### L 700.6800, L100.0100, L500.2500 #### [facility] [address] [place], [address] Bilirubin [Mass/Vol] 0.21 mg/dL Normal 0.00-1.30 [facility] Comment on above: Performed By: #### L 700.6800, L100.0100, L500.2500 #### [facility] [address] [place], [address] BUN/CRE 14.4 RATIO Normal 10-20 [facility] Comment on above: Performed By: #### L 700.6800, L100.0100, L500.2500 #### [facility] [address] [place], [address] Calcium [Mass/Vol] 9.2 mg/dL Normal 7.6-11.0 [facility] Comment on above: Performed By: #### L 700.6800, L100.0100, L500.2500 #### [facility] [address] [place], [address] Chloride [Moles/Vol] 99 mmol/L Normal 98-108 [facility] Comment on above: Performed By: #### L 700.6800, L100.0100, L500.2500 #### [facility] [address] [place], [address] CO2 [Moles/Vol] 21.8 mmol/L Normal 21.0-32.0 [facility] Comment on above: Performed By: #### L 700.6800, L100.0100, L500.2500 #### [facility] [address] [place], [address] Creatinine [Mass/Vol] 0.84 mg/dL Normal 0.70-1.20 [facility] Comment on above: Performed By: #### L 700.6800, L100.0100, L500.2500 #### [facility] [address] [place], [address] GAP 14 Normal 5-15 [facility] Comment on above: Performed By: #### L 700.6800, L100.0100, L500.2500 #### [facility] [address] [place], [address] GFR/1.73 sq M.predicted among non-blacks MDRD (S/P/Bld) [Vol rate/Area] 95 mL/min/{1.73_m2} Normal >60 [facility] Comment on above: Result Comment: mL/m in/1.73m2 CKD-EPI Creatinine Equation (2020) Performed By: #### L 700.6800, L100.0100, L500.2500 #### [facility] [address] [place], [address] Globulin (S) [Mass/Vol] 3.9 g/dL Normal 2.2-4.2 [facility] Comment on above: Performed By: #### L 700.6800, L100.0100, L500.2500 #### [facility] [address] [place], [address] Glucose [Mass/Vol] 233 mg/dL High 70-99 [facility] Comment on above: Performed By: #### L 700.6800, L100.0100, L500.2500 #### [facility] [address] [place], [address] Potassium [Moles/Vol] 4.6 mmol/L Normal 3.3-5.1 [facility] Comment on above: Performed By: #### L 700.6800, L100.0100, L500.2500 #### [facility] [address] [place], [address] Sodium [Moles/Vol] 135 mmol/L Normal 133-145 [facility] Comment on above: Performed By: #### L 700.6800, L100.0100, L500.2500 #### [facility] [address] [place], [address] T PROT 7.5 g/dL Normal 5.9-8.4 [facility] Comment on above: Performed By: #### L 700.6800, L100.0100, L500.2500 #### [facility] [address] [place], [address] Urea nitrogen [Mass/Vol] 12 mg/dL Normal 4-19 [facility] Comment on above: Performed By: #### L 700.6800, L100.0100, L500.2500 #### [facility] [address] [place], [address] Eosinophil percentageOrdered By: [facility] Amy Solorzano on 10-17-2024 Eosinophils/100 WBC (Bld) 0.7 % 0-5 [facility] Erythrocyte distribution wid th (RBC) [Ratio]Ordered By: [facility] Amy Solorzano on 10-17-2024 Erythrocyte distribution width (RBC) [Entitic vol] 41.9 fL 35.1-43.9 [facility] Erythrocyte distribution wid th ratioOrdered By: [facility] Amy Solorzano on 10-17-2024 Erythrocyte distribution width (RBC) [Ratio] 14.1 % 11.6-14.6 [facility] Erythrocyte distribution wid th standard deviationOrdered By: [facility] Amy Solorzano on 10-17-2024 Erythrocyte distribution width (RBC) [Ratio] 41.9 fl 35.1-43.9 [facility] GFR/1.73 sq M.predicted taryn g non-blacks MDRD (S/P/Bld) [Vol rate/Area]Ordered By: [facility] Amy Solorzano on 10-17-2024 Estimated GFR (MDRD) Non-Af Amer 95 >60 [facility] Comment on above: mL/min/1.73m2 CKD-EP I Creatinine Equation (2020) Glomerular filtration rate ( GFR) estimation/1.73 sq m using serum, plasma, or whole bOrdered By: [facility] Amy Solorzano on 10-17-2024 GFR/1.73 sq M.predicted among non-blacks MDRD (S/P/Bld) [Vol rate/Area] 95 mL/min/{1.73_m2} >60 [facility] Comment on above: mL/min/1.73m2 CKD-EP I Creatinine Equation (2020) Hematocrit Auto (Bld) [Volum e fraction]Ordered By: [facility] Amy Solorzano on 10-17-2024 Hematocrit (Bld) [Volume fraction] 39.5 % 37-47 [facility] Hemoglobin measurementOrdere d By: [facility] Amy Rashad on 10-17-2024 Hemoglobin (Bld) [Mass/Vol] 12.8 g/dL 12.0-15.0 [facility] Immature granulocytes/100 WB C Auto (Bld)Ordered By: [facility] Amy Rashad on 10-17-2024 Immature granulocytes/100 WBC (Bld) 1.000 % High 0.0-0.9 [facility] Comment on above: IG% - Immature Granu locytes (promyelocytes, myelocytes and metamyelocytes) > 1% indicates that a LEFT SHIFT is Present. LDL calc ser/plasOrdered By: [facility] Amy Rashad on 10-17-2024 Cholesterol in LDL [Mass/Vol] 70 mg/dL [facility] Comment on above: Zwzcquorsm=833-620 m g/dL & Higher Gcza=027 mg/dL or greater LDL Cholesterol, Calculated 70 mg/dL [facility] Comment on above: Shznygfdis=779-629 m g/dL & Higher Udvi=692 mg/dL or greater Laboratory - Chemistry and C hemistry - challengeOrdered By: [facility] Amy Rashad on 10-17-2024 AST [Catalytic activity/Vol] 18 U/L <32 [facility] Lipid Profileon 10-17-2024 CHOL:HDL 4.44 Normal [facility] Comment on above: Performed By: #### L 700.6800, L100.0100, L500.2500 #### [facility] [address] [place], [address] Cholesterol [Mass/Vol] 164 mg/dL Normal <=200 [facility] Comment on above: Result Comment: Chol esterol level, Desirable <200 mg/dL Borderline high cholesterol 200-239 mg/dL High cholesterol >=240 mg/dL Recommendations of the NCEP Adult Treatment Panel for the following risk-cutoff thresholds for the [place] population. Performed By: #### L 700.6800, L100.0100, L500.2500 #### [facility] [address] [place], [address] Cholesterol in HDL [Mass/Vol] 37 mg/dL Low [facility] Comment on above: Result Comment: Lupe onal Cholesterol Education Program (NCEP) guidelines: <40 mg/dL: Low HDL-cholesterol (major risk factor for CHD) >= 60 mg/dL: High HDL-cholesterol (negative risk factor for CHD) HDL-cholesterol is affected by a number of factors, e.g. smoking, exercise, hormones, sex and age. Performed By: #### L 700.6800, L100.0100, L500.2500 #### [facility] [address] [place], [address] Cholesterol in LDL [Mass/Vol] 70 mg/dL Normal [facility] Comment on above: Result Comment: Bord nrbtiy=411-109 mg/dL Higher Iexr=986 mg/dL or greater Performed By: #### L 700.6800, L100.0100, L500.2500 #### [facility] [address] [place], [address] Cholesterol in VLDL [Mass/Vol] 57 mg/dL High 5-40 [facility] Comment on above: Performed By: #### L 700.6800, L100.0100, L500.2500 #### [facility] [address] [place], [address] Triglyceride [Mass/Vol] 287 mg/dL High [facility] Comment on above: Result Comment: The drugs N-Acetylcysteine and Metamizole may falsely depress this assay. Normal range: <150 mg/dL Borderline High: 150-199 mg/dL High: 200-499 mg/dL Very High: >500 mg/dL Performed By: #### L 700.6800, L100.0100, L500.2500 #### [facility] [address] [place], [address] Lymphocytes Auto (Unsp spec) [#/Vol]Ordered By: [facility] Amy Solorzano on 10-17-2024 Lymphocytes (Bld) [#/Vol] 3.16 10*3/uL 0.83-4.51 [facility] Lymphocytes/100 WBC Auto (Un sp spec)Ordered By: [facility] Amykeiko Solorzano on 10-17-2024 Lymphocytes/100 WBC (Bld) 29.7 % 19-41 [facility] MCV (mean corpuscular volume ) determinationOrdered By: [facility] Amy Solorzano on 10-17-2024 MCV (RBC) [Entitic vol] 82.1 fL 81-99 [facility] Mean corpuscular hemoglobin (MCH) determinationOrdered By: [facility] 10-17-2024 MCH (RBC) [Entitic mass] 26.6 pg Low 27.0-32.0 [facility] Mean corpuscular hemoglobin concentration (MCHC) determinationOrdered By: [facility] Amy Solorzano on 10-17-2024 MCHC (RBC) [Mass/Vol] 32.4 g/dL 32-36 [facility] Mean platelet volume determi nationOrdered By: [facility] on 10-17-2024 Platelet mean volume (Bld) [Entitic vol] 9.7 fL 6.2-12.0 [facility] Microalbumin,Random Urineon 10-17-2024 MICROALBUMIN,UR < 12.0 Normal NO RANGE EST. [facility] Comment on above: Performed By: #### L 700.6800, L100.0100, L500.2500 #### [facility] [address] [facility] [place], [address] Monocyte percentageOrdered B y: [facility] Amy Solorzano on 10-17-2024 Monocytes/100 WBC (Bld) 6.0 % 0-10 [facility] Neutrophil percentageOrdered By: [facility] Amy Solorzano on 10-17-2024 Neutrophils/100 WBC (Bld) 62.2 % 47-70 [facility] Nucleated red blood cell per centageOrdered By: [facility] Amy Solorzano on 10-17-2024 Nucleated RBC/100 WBC (Bld) [Ratio] 0 % 0-5 [facility] Platelet countOrdered By: [facility] Amy Solorzano on 10-17-2024 Platelets (Bld) [#/Vol] 332 10*3/uL 150-450 [facility] Potassium (Unsp spec) [Mass/ Vol]Ordered By: [facility] Amy Solorzano on 10-17-2024 Potassium [Moles/Vol] 4.6 mmol/L 3.3-5.1 [facility] Potassium measurement (mass/ volume)Ordered By: [facility] Amy Solorzano on 10-17-2024 Potassium (Unsp spec) [Mass/Vol] 4.6 mmol/L 3.3-5.1 [facility] RBC Auto (Bld) [#/Vol]Ordere d By: [facility] Amy Solorzano on 10-17-2024 RBC (Bld) [#/Vol] 4.81 10*6/uL 4.2-5.4 [facility] Screening total cholesterol/ high density lipoprotein (HDL) cholesterol ratioOrdered By: [facility] Amy Solorzano on 10-17-2024 Cholesterol.total/Breonna sterol in HDL [Mass ratio] 4.44 {ratio} [facility] Serum creatinine measurement (mass/volume)Ordered By: [facility] Amy Solorzano on 10-17-2024 Creatinine [Mass/Vol] 0.84 mg/dL 0.70-1.20 [facility] Serum globulin measurementOr dered By: [facility] Amy Solorzano on 10-17-2024 Globulin (S) [Mass/Vol] 3.9 g/dL 2.2-4.2 [facility] Serum glucose measurement (m ass/volume)Ordered By: [facility] Amy Solorzano on 10-17-2024 Glucose [Mass/Vol] 233 mg/dL High 70-99 [facility] Serum or plasma alanine jordan otransferase (ALT) measurementOrdered By: [facility] Amy Solorzano on 10-17-2024 ALT [Catalytic activity/Vol] 12 U/L <35 [facility] Serum or plasma albumin hussein urement (mass/volume)Ordered By: [facility] Amy Solorzano on 10-17-2024 Albumin [Mass/Vol] 3.7 g/dL 3.5-5.0 [facility] Serum or plasma albumin/glob ulin mass ratioOrdered By: [facility] Amy Solorzano on 10-17-2024 Albumin/Globulin [Mass ratio] 0.9 {ratio} 0.9-2.4 [facility] Serum or plasma alkaline bradley sphatase measurementOrdered By: [facility] on 10-17-2024 ALP [Catalytic activity/Vol] 93 U/L 35-104 [facility] Serum or plasma calcium hussein urement (mass/volume)Ordered By: [facility] on 10-17-2024 Calcium [Mass/Vol] 9.2 mg/dL 7.6-11.0 [facility] Serum or plasma cholesterol in HDL measurement (mass/volume)Ordered By: [facility] on 10-17-2024 Cholesterol in HDL [Mass/Vol] 37 mg/dL Low >40 [facility] Comment on above: National Cholesterol Education Program (NCEP) guidelines:<40 mg/dL: Low HDL-cholesterol (major risk factor for CHD)>= 60 mg/dL: High HDL-cholesterol (negative risk factor for CHD)HDL-cholesterol is affected by a number of factors, e.g. smoking, exercise, hormones, sex and age. Serum or plasma cholesterol measurement (mass/volume)Ordered By: [facility] on 10-17-2024 Cholesterol [Mass/Vol] 164 mg/dL <201 [facility] Comment on above: Cholesterol level, D esirable <200 mg/dLBorderline high cholesterol 200-239 mg/dLHigh cholesterol >=240 mg/dLRecommendations of the NCEP Adult Treatment Panel for the following risk-cutoff thresholds for the [place] population. Serum or plasma urea nitroge n measurement (mass/volume)Ordered By: [facility] on 10-17-2024 Urea nitrogen [Mass/Vol] 12 mg/dL 4-19 [facility] Sodium levelOrdered By: [facility] Rashad on 10-17-2024 Sodium [Moles/Vol] 135 mmol/L 133-145 [facility] TSH DL <= 0.005 mIU/L QnOrde red By: [facility] on 10-17-2024 Thyroid Stimulating Hormone (TSH) 1.180 uIU/mL 0.300-4.200 [facility] TSH Qn 1.180 uIU/mL 0.300-4.200 [facility] Thyroid Stim Hormone (TSH)on 10-17-2024 TSH 1.180 uIU/mL Normal 0.300-4.200 [facility] Comment on above: Performed By: #### L 700.6800, L100.0100, L500.2500 #### [facility] [address] [place], [address] Total proteinOrdered By: [facility] Amy Solorzano on 10-17-2024 Protein [Mass/Vol] 7.5 g/dL 5.9-8.4 [facility] Triglycerides measurementOrd ered By: [facility] Amy Solorzano on 10-17-2024 Triglyceride [Mass/Vol] 287 mg/dL High <199 [facility] Comment on above: The drugs N-Acetylcy steine and Metamizole may falsely depress this assay. Normal range: <150 mg/dLBorderline High: 150-199 mg/dLHigh: 200-499 mg/dLVery High: >500 mg/dL Urine albumin measurement [facility] detection limit of 20 mg/L or less (mass/volume)Ordered By: [facility] Amy Solorzano on 10-17-2024 Albumin DL <= 20 mg/L (U) [Mass/Vol] < 12.0 mg/L NO RANGE EST. [facility] Vitamin D, 25-hydroxyOrdered By: [facility] Amy Solorzano on 10-17-2024 Vitamin D 25-Hydroxy 10.7 ng/mL Low 30-100 [facility] Comment on above: Vitamin D StatusDefi ciency: <20 ng/mL (50nmol/L)Insufficiency: 20-30 ng/mL (50-75 nmol/L)Sufficiency: 30-100 ng/mL (75-250 nmol/L)Toxicity: >100 ng/mL (>250 nmol/L) Vitamin D,25 Hydroxyon 10-17 Vitamin D 25-OH 10.7 ng/mL Low 30-100 [facility] Comment on above: Result Comment: Claudia min D Status Deficiency: <20 ng/mL (50nmol/L) Insufficiency: 20-30 ng/mL (50-75 nmol/L) Sufficiency: 30-100 ng/mL (75-250 nmol/L) Toxicity: >100 ng/mL (>250 nmol/L) Performed By: #### L 700.6800, L100.0100, L500.2500 #### [facility] [place], [address] White blood cell (WBC) count Ordered By: [facility] Amy Rashad on 10-17-2024 WBC (Bld) [#/Vol] 10.6 10*3/uL 4.4-11.0 [facility] 07-03-2024 [facility] Office Visit ([facility] ) GHISLAINE GIVENS ([id number]) 1990 F [place] Date Time Provider Department 07/03/24 1:00 PM IRAIS HANNA [facility] During your visit today, we recorded the following information about you: Temperature Pulse Respiration Blood pressure 97 degrees 104/minute 16/minute 122/90 Weight Last Period 115.9 kg 06/20/24 Irais Hanna PA 07/03/2024 1:13 PM Signed This note was created using [employer]. Subjective Ghislaine Givens is a 34 year [...] a diabeti (more content not included)... Normal [facility] XR CHEST 2V FRONTAL/LATon XR CHEST 2V [...] Low lung volumes. No acute radiographic abnormality. Lye Bath Operator: OLGA Transcribe Date/Time: Jul 03 2024 1:07P Dictated by : THANIA ROSS DO This examination was interpreted and the report reviewed and electronically signed by: THANIA ROSS DO on Jul 03 2024 1:08PM EST [id number] Normal [facility] XR Chest PA and Lateralon IMPRESSION: Low lung volumes. No acute radiographic abnormality. Lye Bath Operator: OLGA Transcribe Date/Time: Jul 03 2024 1:07P [...] soft tissues: Unremarkable. DIVISION OF RADIOLOGY Provider, [facility] Fabienne [facility] - 07/03/2024 * * *Final Report* * [...] Low lung volumes. No acute radiographic abnormality. Lye Bath Operator: [email or web address] Transcribe Date/Time: Jul 03 2024 1:07P Dictated by : THANIA ROSS DO This examination was interpreted and the report reviewed and electronically signed by: THANIA ROSS DO on Jul 03 2024 1:08PM [facility] Radiology Study observation (narrative) Melissa gupta [facility] XR Chest PA and LateralOrder ed By: [facility] Provider on 07-03-2024 [facility] CNOVon 06-26-2024 [facility] Office Visit ([facility]WSTR ) GHISLAINE GIVENS ([id number]) 1990 F [place] Date Time Provider Department 06/26/24 10:30 AM FRANTZ AREVALO [facility] During your visit today, we recorded the following information about you: Temperature Pulse Respiration Blood pressure 97.4 degrees 117/minute 18/minute 122/78 Weight 115.7 kg Frantz Arevalo PA-C 06/26/2024 11:03 AM Signed This note was created using [employer]. Subjective Ghislaine Givens is a 34 year [...] powder T (more content not included)... Normal [facility] CBC W/Diff, Automatedon 10-1 5-2024 Absolute Lymph 4.36 X10 3/uL Normal 0.83-4.51 [facility] Comment on above: Performed By: #### L 500.2500, L100.0100 #### [facility] [address] [place], [address] Absolute Neut 7.1 X10 3/uL Normal 2.0-7.7 [facility] Comment on above: Performed By: #### L 500.2500, L100.0100 #### [facility] [address] [place], [address] Basophils/100 WBC (Bld) 0.6 % Normal 0-1 [facility] Comment on above: Performed By: #### L 500.2500, L100.0100 #### [facility] [address] [place], [address] Eosinophils/100 WBC (Bld) 1.3 % Normal 0-5 [facility] Comment on above: Performed By: #### L 500.2500, L100.0100 #### [facility] [address] [place], [address] Erythrocyte distribution width (RBC) [Ratio] 13.6 % Normal 11.6-14.6 [facility] Comment on above: Performed By: #### L 500.2500, L100.0100 #### [facility] [address] [place], [address] Hematocrit (Bld) [Volume fraction] 41.6 % Normal 37-47 [facility] Comment on above: Performed By: #### L 500.2500, L100.0100 #### [facility] [address] [place], [address] Hemoglobin (Bld) [Mass/Vol] 13.1 g/dL Normal 12.0-15.0 [facility] Comment on above: Performed By: #### L 500.2500, L100.0100 #### [facility] [address], [address] IG% 1.300 High 0.0-0.9 [facility] Comment on above: Result Comment: IG% - Immature Granulocytes (promyelocytes, myelocytes and metamyelocytes) > 1% indicates that a LEFT SHIFT is Present. Performed By: #### L 500.2500, L100.0100 #### [facility] [address] [place], [address] Lymphocytes/100 WBC (Bld) 34.7 % Normal 19-41 [facility] Comment on above: Performed By: #### L 500.2500, L100.0100 #### [facility] [address] [place], [address] MCH (RBC) [Entitic mass] 26.3 pg Low 27.0-32.0 [facility] Comment on above: Performed By: #### L 500.2500, L100.0100 #### [facility] [address] [place], [address] MCHC (RBC) [Mass/Vol] 31.5 g/dL Low 32-36 [facility] Comment on above: Performed By: #### L 500.2500, L100.0100 #### [facility] [address] [place], [address] MCV (RBC) [Entitic vol] 83.5 fL Normal 81-99 [facility] Comment on above: Performed By: #### L 500.2500, L100.0100 #### [facility] [address] [place], [address] Monocytes/100 WBC (Bld) 5.4 % Normal 0-10 [facility] Comment on above: Performed By: #### L 500.2500, L100.0100 #### [facility] [address] [place], [address] Neutrophils/100 WBC (Bld) 56.7 % Normal 47-70 [facility] Comment on above: Performed By: #### L 500.2500, L100.0100 #### [facility] [address] [place], [address] Nucleated RBC (Bld) [#/Vol] 0 10*3/uL Normal 0-5 [facility] Comment on above: Performed By: #### L 500.2500, L100.0100 #### [facility] [address], [address] Platelet mean volume (Bld) [Entitic vol] 9.4 fL Normal 6.2-12.0 [facility] Comment on above: Performed By: #### L 500.2500, L100.0100 #### [facility] [address] [place], [address] Platelets (Bld) [#/Vol] 368 10*3/uL Normal 150-450 [facility] Comment on above: Performed By: #### L 500.2500, L100.0100 #### [facility] [address] [place], [address] RBC (Bld) [#/Vol] 4.98 10*6/uL Normal 4.2-5.4 [facility] Comment on above: Performed By: #### L 500.2500, L100.0100 #### [facility] [address] [place], [address] RDW SD 41.3 fl Normal 35.1-43.9 [facility] Comment on above: Performed By: #### L 500.2500, L100.0100 #### [facility] [address], [address] WBC (Bld) [#/Vol] 12.6 10*3/uL High 4.4-11.0 [facility] Comment on above: Performed By: #### L 500.2500, L100.0100 #### [facility] [address] [place], [address] Comprehensive Metabolic Prof ilon 04-25-2024 Albumin [Mass/Vol] 3.3 g/dL Normal 3.2-5.0 [facility] Comment on above: Performed By: #### L 500.2500, L100.0100 #### [facility] [address] [place], [address] Albumin/Globulin [Mass ratio] 0.6 {ratio} Low 0.9-2.4 [facility] Comment on above: Performed By: #### L 500.2500, L100.0100 #### [facility] [address] [place], [address] ALK P 89 U/L Normal 45-117 [facility] Comment on above: Performed By: #### L 500.2500, L100.0100 #### [facility] [address] [place], [address] ALT [Catalytic activity/Vol] 24 U/L Normal 13-56 [facility] Comment on above: Performed By: #### L 500.2500, L100.0100 #### [facility] [address] [place], [address] AST [Catalytic activity/Vol] 9 U/L Low 15-37 [facility] Comment on above: Performed By: #### L 500.2500, L100.0100 #### [facility] [address] [place], [address] Bilirubin [Mass/Vol] 0.30 mg/dL Normal 0.20-1.00 [facility] Comment on above: Result Comment: For patients on eltrombopag therapy, use of [employer] [place] TBIL is not recommended. Performed By: #### L 500.2500, L100.0100 #### [facility] [address], [address] BUN/CRE 13.5 RATIO Normal 10-20 [facility] Comment on above: Performed By: #### L 500.2500, L100.0100 #### [facility] [address] [place], [address] CA,Total 9.1 mg/dL Normal 8.5-10.1 [facility] [facility] Comment on above: Performed By: #### L 500.2500, L100.0100 #### [facility] [address] [place], [address] Chloride [Moles/Vol] 108 mmol/L High 98-107 [facility] Comment on above: Performed By: #### L 500.2500, L100.0100 #### [facility] [address] [place], [address] CO2 [Moles/Vol] 23.0 mmol/L Normal 21.0-32.0 [facility] Comment on above: Performed By: #### L 500.2500, L100.0100 #### [facility] [address] [place], [address] Creatinine [Mass/Vol] 0.89 mg/dL Normal 0.55-1.02 [facility] Comment on above: Result Comment: The validity of the calculated GFR GFRAA in patients over 70 years has not been determined. Clinical correlation is essential. Performed By: #### L 500.2500, L100.0100 #### [facility] [address] [place], [address] EST GFR - AA 95 mL/min Normal >60 [facility] Comment on above: Result Comment: Afri can Citizen [place] GFR Calc Performed By: #### L 500.2500, L100.0100 #### [facility] [address] [place], [address] GAP 7 Normal 5-15 [facility] Comment on above: Performed By: #### L 500.2500, L100.0100 #### [facility] [address] [place], [address] GFR/1.73 sq M.predicted among non-blacks MDRD (S/P/Bld) [Vol rate/Area] 78 mL/min/{1.73_m2} Normal >60 [facility] Comment on above: Result Comment: Non- GFR Calc Performed By: #### L 500.2500, L100.0100 #### [facility] [address] [place], [address] Globulin (S) [Mass/Vol] 5.2 g/dL High 2.2-4.2 [facility] Comment on above: Performed By: #### L 500.2500, L100.0100 #### [facility] [address] [place], [address] Glucose [Mass/Vol] 177 mg/dL High 74-106 [facility] Comment on above: Result Comment: Fast ing Glucose result greater than or equal to 126 mg/dL suggests DIABETES MELLITUS per A.D.A. criteria. Performed By: #### L 500.2500, L100.0100 #### [facility] [address] [place], [address] Potassium [Moles/Vol] 4.2 mmol/L Normal 3.5-5.1 [facility] Comment on above: Performed By: #### L 500.2500, L100.0100 #### [facility] [address] [place], [address] Sodium [Moles/Vol] 137 mmol/L Normal 136-145 [facility] Comment on above: Performed By: #### L 500.2500, L100.0100 #### [facility] [address] [place], [address] T PROT 8.5 g/dL High 6.4-8.2 [facility] Comment on above: Performed By: #### L 500.2500, L100.0100 #### [facility] [address] [place], [address] Urea nitrogen [Mass/Vol] 12 mg/dL Normal 7-18 [facility] Comment on above: Performed By: #### L 500.2500, L100.0100 #### [facility] [address] [place], [address] Lipid Profileon 04-25-2024 Cholesterol [Mass/Vol] 209 mg/dL High 200 [facility] Comment on above: Result Comment: <200 mg/dL Desirable 200-240 mg/dL Borderline >240 mg/dL High Risk Performed By: #### L 500.2500, L100.0100 #### [facility] [address] [place], [address] Cholesterol in HDL [Mass/Vol] 37 mg/dL Low [facility] Comment on above: Result Comment: The drugs N-Acetylcysteine and Metamizole may falsely depress this assay. Reference Range HDL <40 mg/dL Low HDL Cholesterol HDL >or= 60 mg/dL High HDL Cholesterol Performed By: #### L 500.2500, L100.0100 #### [facility] [address] [place], [address] Cholesterol in LDL [Mass/Vol] 127 mg/dL Normal 0-130 [facility] Comment on above: Performed By: #### L 500.2500, L100.0100 #### [facility] [address] [place], [address] Cholesterol in VLDL [Mass/Vol] 45 mg/dL High 5-40 [facility] Comment on above: Performed By: #### L 500.2500, L100.0100 #### [facility] [address] [place], [address] Triglyceride [Mass/Vol] 227 mg/dL High [facility] Comment on above: Result Comment: The drugs N-Acetylcysteine and Metamizole may falsely depress this assay. Serum Triglycerides Reference Interval Normal <150 mg/dL Borderline high 150 - 199 mg/dL High 200 - 499 mg/dL Very High > or = 500 mg/dL Performed By: #### L 500.2500, L100.0100 #### [facility] [address] [place], [address] Microalbumin,Random Urineon 04-25-2024 MICROALBUMIN,UR 147.0 mg/L Normal NO RANGE EST. [facility] Comment on above: Performed By: #### L 500.2500, L100.0100 #### [facility] [address] [place], [address] Thyroid Stim Hormone (TSH)on 04-25-2024 TSH 0.825 uIU/mL Normal 0.358-3.740 [facility] Comment on above: Performed By: #### L 500.2500, L100.0100 #### [facility] [address] [place], [address] Fungus cultureOrdered By: Neva Forrest on 07-23-2023 Fungus identified Cx Nom (Unsp spec) [facility] Fungus stainOrdered By: Jonas Forrest on 07-23-2023 Fungus identified Fungus stain Nom (Unsp spec) [facility] Glucose Glucometer (BldC) [M ass/Vol]Ordered By: Abdirizak Forrest on 07-23-2023 Glucose [Mass/Vol] 204 mg/dL 74-106 [facility] Comment on above: MANAGEMENT OF PATIEN T CARE PER NURSING PROTOCOL Laboratory - Chemistry and C hemistry - challengeOrdered By: Abdirahman Morton on 07-23-2023 HCG ( test) Ql (U) Negative [facility] Comment on above: Very dilute urine sp ecimens, as indicated by a low specificgravity, may not contain sales representative metals levels of hCG. If is still suspected, a first morning urinespecimen should be collected 48 hours later and tested. No Panel InformationOrdered By: Abdirahman Morton on 07-23-2023 Negative [facility] - Chemistry and C hemistry - challengeOrdered By: Abdirahman Morton on 07-16-2023 Magnesium [Mass/Vol] 2.0 mg/dL 1.6-2.6 [facility] No Panel InformationOrdered By: Abdirahman Morton on 07-16-2023 2.0 mg/dL 1.6-2.6 [facility] 25(OH)D3 SerPl-mCncon 2023 25-hydroxyvitamin D3 [Mass/Vol] 9.5 ng/mL Low 31.0-80.0 [facility] Comment on above: Order Comment: Speci men Type: BLOOD SPECIMEN Ordering Facility: [facility] Address: [address] [place] [address], [place] [address] Result Comment: Clas sification of 25 [place] Vitamin D status: Deficiency/Insufficiency: < or = 30 ng/ml. Sufficiency/Optimal Levels: 31-80 ng/mL Toxicity: > 100 ng/mL. Test performed by chemiluminescent immunoassay. Performed By: #### 1 989-3 #### [facility] CLIA [id number] [address] [place] [address] [place] CBC panel Auto (Bld)on 07-14 Erythrocyte distribution width (RBC) [Ratio] 13.2 % Normal 11.5-15.0 [facility] Comment on above: Order Comment: Speci men Type: BLOOD SPECIMEN Ordering Facility: [facility] Address: [address] [place] [address], [place] [address] Performed By: #### 5 8410-2 #### [facility] CLIA [id number] [address] [place] [address] [place] Hematocrit (Bld) [Volume fraction] 41.9 % Normal 36.0-46.0 [facility] Comment on above: Order Comment: Timuri men Type: BLOOD SPECIMEN Ordering Facility: [facility] Address: [address] [place] [address] Performed By: #### 5 8410-2 #### [facility] CLIA [id number] [address] [place] [address] [place] Hemoglobin (Bld) [Mass/Vol] 12.8 g/dL Normal 11.5-15.5 [facility] Comment on above: Order Comment: Speci men Type: BLOOD SPECIMEN Ordering Facility: [facility] Address: [address] [place] [address] Performed By: #### 5 8410-2 #### [facility] CLIA [id number] [address] [place] [address] [place] MCH (RBC) [Entitic mass] 26.1 pg Normal 26.0-34.0 [facility] Comment on above: Order Comment: Speci men Type: BLOOD SPECIMEN Ordering Facility: [facility] Address: [address] [place] [address] Performed By: #### 5 8410-2 #### [facility] CLIA [id number] [address] [place] [address] [place] MCHC (RBC) [Mass/Vol] 30.5 g/dL Normal 30.5-36.0 [facility] Comment on above: Order Comment: Speci men Type: BLOOD SPECIMEN Ordering Facility: [facility] Address: [address] [place] [address] Performed By: #### 5 8410-2 #### [facility] CLIA [id number] [address] [place] [address] [place] MCV (RBC) [Entitic vol] 85.3 fL Normal 80.0-100.0 [facility] Comment on above: Order Comment: Speci men Type: BLOOD SPECIMEN Ordering Facility: [facility] Address: [address] [place] [address] Performed By: #### 5 8410-2 #### [facility] CLIA [id number] [address] [place] [address] [place] Nucleated RBC (Bld) [#/Vol] 10*3/uL Normal <0.01 [facility] Comment on above: Order Comment: Speci men Type: BLOOD SPECIMEN Ordering Facility: [facility] Address: [address] [place] [address] Performed By: #### 5 8410-2 #### [facility] CLIA [id number] [address] [place] [address] [place] Platelet mean volume (Bld) [Entitic vol] 10.0 fL Normal 9.0-12.7 [facility] Comment on above: Order Comment: Speci men Type: BLOOD SPECIMEN Ordering Facility: [facility] Address: [address] [place] [address] Performed By: #### 5 8410-2 #### [facility] CLIA [id number] [address] [place] [address] [place] Platelets (Bld) [#/Vol] 417 10*3/uL High 150-400 [facility] Comment on above: Order Comment: Speci men Type: BLOOD SPECIMEN Ordering Facility: [facility] Address: [address] [place] [address] Performed By: #### 5 8410-2 #### [facility] CLIA [id number] [address] [place] [address] [place] RBC (Bld) [#/Vol] 4.91 10*6/uL Normal 3.90-5.20 [facility] Comment on above: Order Comment: Speci men Type: BLOOD SPECIMEN Ordering Facility: [facility] Address: [address] [place] [address] Performed By: #### 5 8410-2 #### [facility] CLIA [id number] [address] [place] [address] [place] WBC (Bld) [#/Vol] 7.59 10*3/uL Normal 3.70-11.00 [facility] Comment on above: Order Comment: Speci men Type: BLOOD SPECIMEN Ordering Facility: [facility] Address: [address], [place] [address] Performed By: #### 5 8410-2 #### [facility] CLIA [id number] [address] [place] [address] [place] Comprehensive metabolic 2000 panelon 07-14-2023 Albumin [Mass/Vol] 4.0 g/dL Normal 3.9-4.9 [facility] Comment on above: Order Comment: Speci men Type: BLOOD SPECIMEN Ordering Facility: [facility] Address: [address] [place] [address], [place] [address] Performed By: #### 3 016-3, 03148-2 #### [facility] CLIA [id number] [address] [place] [address] [place] ALP [Catalytic activity/Vol] 106 U/L Normal 34-123 [facility] Comment on above: Order Comment: Speci men Type: BLOOD SPECIMEN Ordering Facility: [facility] Address: [address] [place] [address], [place] [address] Performed By: #### 3 016-3, 17708-0 #### [facility] CLIA [id number] [address] [place] [address] [place] ALT [Catalytic activity/Vol] 11 U/L Normal 7-38 [facility] Comment on above: Order Comment: Speci men Type: BLOOD SPECIMEN Ordering Facility: [facility] Address: [address], [place] [address] Performed By: #### 3 016-3, 82429-3 #### [facility] CLIA [id number] [address] [place], [place] [id number] [place] Anion gap [Moles/Vol] 14 mmol/L Normal 9-18 [facility] Comment on above: Order Comment: Speci men Type: BLOOD SPECIMEN Ordering Facility: [facility] Address: [address] [place] [address] RD, [place] [address] Performed By: #### 3 -3, #### [facility] CLIA [id number] [address] [place] [address] [place] AST [Catalytic activity/Vol] 13 U/L Normal 13-35 [facility] Comment on above: Order Comment: Speci men Type: BLOOD SPECIMEN Ordering Facility: [facility] Address: [address] [place] [address], [place] [address] Performed By: #### 3 -3, #### [facility] CLIA [id number] [address] [place] [address] [place] Bilirubin [Mass/Vol] 0.3 mg/dL Normal 0.2-1.3 [facility] Comment on above: Order Comment: Speci men Type: BLOOD SPECIMEN Ordering Facility: [facility] Address: [address] [place] [address], [place] [address] Performed By: #### 3 , #### [facility] CLIA [id number] [address] [place] [address] [place] Calcium [Mass/Vol] 9.6 mg/dL Normal 8.5-10.2 [facility] Comment on above: Order Comment: Speci men Type: BLOOD SPECIMEN Ordering Facility: [facility] Address: [address] [place] [address], [place] [address] Performed By: #### 3 3, #### [facility] CLIA [id number] [address] [place] [address] [place] Chloride [Moles/Vol] 101 mmol/L Normal 97-105 [facility] Comment on above: Order Comment: Speci men Type: BLOOD SPECIMEN Ordering Facility: [facility] Address: [address] [place] [address], [place] [address] Performed By: #### 3 016-3, 87482-9 #### [facility] CLIA [id number] [address] [place] [address] [place] CO2 [Moles/Vol] 23 mmol/L Normal 22-30 [facility] Comment on above: Order Comment: Speci men Type: BLOOD SPECIMEN Ordering Facility: [facility] Address: [address] [place] [address] Performed By: #### 3 016-3, 55806-4 #### [facility] CLIA [id number] [address] [place] [address] [place] Creatinine [Mass/Vol] 0.69 mg/dL Normal 0.58-0.96 [facility] Comment on above: Order Comment: Speci men Type: BLOOD SPECIMEN Ordering Facility: [facility] Address: [address] [place] [address] Performed By: #### 3 016-3, 82190-8 #### [facility] CLIA [id number] [address] [place] [address] [place] Creatinine and Glomerular filtration rate.predicted panel (S/P/Bld) 119 mL/min/1.73m??? Normal >=60 [facility] Comment on above: Order Comment: Mahogany vargas Type: BLOOD SPECIMEN Ordering Facility: [facility] Address: [address] [place] [address] Result Comment: Samreen mated Glomerular Filtration Rate [...] actual GFR. Performed By: #### 3 016-3, 69676-2 #### [facility] CLIA [id number] [address] [place] [address] [place] Glucose [Mass/Vol] 158 mg/dL High 74-99 [facility] Comment on above: Order Comment: Speci men Type: BLOOD SPECIMEN Ordering Facility: [facility] Address: [address] [place] [address], [place] [address] Result Comment: The [place] Diabetes Association (ADA) provides guidance for cutoff [...] Standards of Medical Care in Diabetes 2016, [place] Diabetes Association. Diabetes Care. 2016.39(Suppl 1). Performed By: #### 3 016-3, 78726-9 #### [facility] CLIA [id number] [address] [place] [address] [place] Potassium [Moles/Vol] 4.4 mmol/L Normal 3.7-5.1 [facility] Comment on above: Order Comment: Mahogany alicia Type: BLOOD SPECIMEN Ordering Facility: [facility] Address: [address] [place] [address] Performed By: #### 3 016-3, 65992-2 #### [facility] CLIA [id number] [address] [place] [address] [place] Protein [Mass/Vol] 7.5 g/dL Normal 6.3-8.0 [facility] Comment on above: Order Comment: Speci men Type: BLOOD SPECIMEN Ordering Facility: [facility] Address: [address] [place] [address] Performed By: #### 3 016-3, 14210-4 #### [facility] CLIA [id number] [address] [place] [id number] [place] Sodium [Moles/Vol] 138 mmol/L Normal 136-144 [facility] Comment on above: Order Comment: Speci men Type: BLOOD SPECIMEN Ordering Facility: [facility] Address: [address] [place] [address], [place] [address] Performed By: #### 3 016-3, 91319-0 #### [facility] CLIA [id number] [address] [place] [address] [place] Urea nitrogen [Mass/Vol] 9 mg/dL Normal 7-21 [facility] Comment on above: Order Comment: Speci men Type: BLOOD SPECIMEN Ordering Facility: [facility] Address: [address] [place] [address], [place] [address] Performed By: #### 3 016-3, 80887-8 #### [facility] CLIA [id number] [address] [place] [address] [place] HbA1c (Bld)on 07-14-2023 Average glucose Estimated from glycated hemoglobin (Bld) [Mass/Vol] 163 mg/dL Normal [facility] Comment on above: Order Comment: [facility] Type: BLOOD SPECIMEN Ordering Facility: [facility] Address: [address] [place] [address] Result Comment: eAG: (Estimated average glucose) is a calculated value from HgbA1c and is sales representative metals of the average blood glucose level in the last 2-3 month period. Performed By: #### 5 5454-3 #### [facility] CLIA [id number] [address] [place] [address] [place] HbA1c (Bld) [Mass fraction] 7.3 % High 4.3-5.6 [facility] Comment on above: Order Comment: [facility] Type: BLOOD SPECIMEN Ordering Facility: [facility] Address: [address] [place] [address] Result Comment: [place] Diabetes Association guidelines indicate that patients with HgbA1c in the range 5.7-6.4% are at increased risk for development of diabetes, and intervention by lifestyle modification may be beneficial. HgbA1c greater or equal to 6.5% is considered diagnostic of diabetes. Performed By: #### 5 5454-3 #### [facility] CLIA [id number] [facility] [place] [address] [place] TSH SerPl-aCncon 07-14-2023 TSH Qn 0.660 m[IU]/L Normal 0.270-4.200 [facility] Comment on above: Order Comment: Speci men Type: BLOOD SPECIMEN Ordering Facility: [facility] Address: [address] [facility], [place] [address] Result Comment: If t he patient is , TSH reference range varies by gestational period: First Trimester (weeks 9-12): 0.180-2.990 mIU/L Second Trimester: 0.110-3.980 mIU/L Third Trimester: 0.480-4.710 mIU/L Francois Matthews et al. A Practical Approach for the Verifications and Determination of Site- and Trimester-Specific Reference Intervals for Thyroid Function tests in . Thyroid, 2019:29:3:412-420. Emeka Farrar, et al. 2017 Guidelines of the [place] Thyroid Association for the Diagnosis and Management of Thyroid Disease during and the . Thyroid, 2017:27:3:315-389. Performed By: #### 3 016-3, 36099-1 #### [facility] CLIA [id number] [address] [place] [address] [place] Absolute lymphocyte countOrd ered By: Willie Dhillon on 07-12-2023 Lymphocytes Auto (Unsp spec) [#/Vol] 4.46 10*3/uL 0.83-4.51 [facility] Basophil percentageOrdered B y: Willie Dhillon on 07-12-2023 Basophil percentage 5-10 SEEN /hpf 0-5 [facility] Basophil percentage 177 mg/dL 74-106 [facility] Basophil percentage 9.0 g/dL 6.4-8.2 [facility] Basophil percentage 0.60 mg/dL 0.20-1.00 [facility] Basophil percentage 136 mmol/L 136-145 [facility] Basophil percentage 4.2 mmol/L 3.5-5.1 [facility] Basophil percentage 100 mmol/L 98-107 [facility] Basophils (Bld) [#/Vol] 10.5 10*3/uL 4.4-11.0 [facility] Basophils (Bld) [#/Vol] 5.4 10*3/uL 2.0-7.7 [facility] Basophils/100 WBC (Bld) 51.3 % 47-70 [facility] Basophils/100 WBC (Bld) 0.3 % 0-5 [facility] Basophils/100 WBC (Bld) 0.4 % 0-1 [facility] Beta hCG serum qualOrdered B y: Willie Dhillon on 07-12-2023 Beta HCG ( test) Ql Negative [facility] Bilirubin Test strip Ql (U)O rdered By: Willie Dhillon on 07-12-2023 Bilirubin Ql (U) 1 mg/dL Negative [facility] Blood erythrocytes count (nu mber/volume)Ordered By: Willie Dhillon on 07-12-2023 RBC (Bld) [#/Vol] 5.20 10*6/uL 4.2-5.4 [facility] Blood hemoglobin measurement (mass/volume)Ordered By: Willie Dhillon on 07-12-2023 Hemoglobin (Bld) [Mass/Vol] 13.6 g/dL 12.0-15.0 [facility] Blood lymphocytes/100 leukoc ytesOrdered By: Willie Dhillon on 07-12-2023 Lymphocytes/100 WBC (Bld) 42.6 % 19-41 [facility] Blood monocytes/100 leukocyt esOrdered By: Willie Dhillon on 07-12-2023 Monocytes/100 WBC (Bld) 5.2 % 0-10 [facility] Blood platelet mean volumeOr dered By: Willie Dhillon on 07-12-2023 Platelet mean volume (Bld) [Entitic vol] 9.2 fL 6.2-12.0 [facility] Determination of erythrocyte mean corpuscular volume (MCV)Ordered By: Willie Dhillon on 07-12-2023 MCV (RBC) [Entitic vol] 82.7 fL 81-99 [facility] Hematocrit Auto (Bld) [Volum e fraction]Ordered By: Willie Dhillon on 07-12-2023 Hematocrit (Bld) [Volume fraction] 43.0 % 37-47 [facility] Ketones Test strip Ql (U)Ord ered By: Willie Dhillon on 07-12-2023 Ketones Ql (U) 5 mg/dl Negative [facility] MCHC Auto (RBC) [Mass/Vol]Or dered By: Willie Dhillon on 07-12-2023 MCHC (RBC) [Mass/Vol] 31.6 g/dL 32-36 [facility] Mucus LM Ql (Urine sed)Order ed By: Willie Dhillon on 07-12-2023 Mucus Ql (Urine sed) 0 SEEN /hpf [facility] Nitrite Test strip Ql (U)Ord ered By: Willie Dhillon on 07-12-2023 Nitrite Ql (U) Negative Negative [facility] No Panel InformationOrdered By: Willie Dihllon on 07-12-2023 26.2 pg 27.0-32.0 [facility] 13.3 % 11.6-14.6 [facility] 39.8 fl 35.1-43.9 [facility] 0.200 % 0.0-0.9 [facility] 0 % 0-5 [facility] 68 mL/min >60 [facility] 82 mL/min >60 [facility] 75.55 ml/min [facility] 12.9 RATIO 10-20 [facility] 5.4 g/dL 2.2-4.2 [facility] 30 U/L 13-75 [facility] 112 U/L 45-117 [facility] 12 U/L 13-56 [facility] 28.0 mmol/L 21.0-32.0 [facility] Negative < 50 ng/mL [facility] Positive < 500 ng/mL [facility] Platelets bldOrdered By: Heath Dhillon on 07-12-2023 Platelets (Bld) [#/Vol] 459 10*3/uL 150-450 [facility] Protein Test strip Ql (U)Ord ered By: Willie Dhillon on 07-12-2023 Protein Ql (U) 30 mg/dl Negative [facility] Serum or plasma albumin hussein urement (mass/volume)Ordered By: Willie Dhillon on 07-12-2023 Albumin [Mass/Vol] 3.6 g/dL 3.2-5.0 [facility] Serum or plasma albumin/glob ulin mass ratioOrdered By: Willie Dhillon on 07-12-2023 Albumin/Globulin [Mass ratio] 0.7 {ratio} 0.9-2.4 [facility] Serum or plasma calcium hussein urement (mass/volume)Ordered By: Willie Dhillon on 07-12-2023 Calcium [Mass/Vol] 9.3 mg/dL 8.5-10.1 [facility] Serum or plasma creatinine m easurement (mass/volume)Ordered By: Willie Dhillon on 07-12-2023 Creatinine [Mass/Vol] 1.01 mg/dL 0.55-1.02 [facility] Serum or plasma urea nitroge n measurement (mass/volume)Ordered By: Willie Dhillon on 07-12-2023 Urea nitrogen [Mass/Vol] 13 mg/dL 7-18 [facility] Squamous epithelial cells de tection in urine sediment by light microscopyOrdered By: Willie Dhillon on 07-12-2023 Epithelial cells.squamous LM Ql (Urine sed) 10-25 SEEN /hpf 5-10 [facility] Thin prep Papanicolaou smear with manual screeningOrdered By: Willie Dhillon on 07-12-2023 Thin prep Papanicolaou smear with manual screening 21 U/L 15-37 [facility] Thin prep Papanicolaou smear with manual screening 8 5-15 [facility] Urine blood detectionOrdered By: Willie Dhillon on 07-12-2023 RBC Ql (U) 10 /ul Negative [facility] RBC Ql (U) 0-5 SEEN /hpf 0-5 [facility] Urine clarityOrdered By: Heath Dhillon on 07-12-2023 Clarity (U) Cloudy Clear [facility] Urine color determinationOrd ered By: Willie Dhillon on 07-12-2023 Color (U) Yellow Yellow [facility] Urine glucose detectionOrder ed By: Willie Dhillon on 07-12-2023 Glucose Ql (U) Normal mg/dl Normal [facility] Urine leukocyte esterase det ection by dipstickOrdered By: Willie Dhillon on 07-12-2023 Leukocyte esterase Test strip Ql (U) 100 /ul Negative [facility] Urine pHOrdered By: Willie mo on 07-12-2023 pH (U) 7.0 [pH] 5.0 - 8.0 [facility] Urine phencyclidine (PCP) de tectionOrdered By: Willie Dhillon on 07-12-2023 Phencyclidine Ql (U) Negative < 25 ng/mL [facility] Urine sediment bacteria coun t by microscopy (number/high power field)Ordered By: Willie Dhillon on 07-12-2023 Bacteria LM.HPF (Urine sed) [#/Area] 2 /[HPF] None Seen [facility] Urine specific gravity measu rementOrdered By: Willie Dhillon on 07-12-2023 Specific gravity (U) [Rel density] 1.010 1.002-1.030 [facility] Urobilinogen Auto test strip Ql (U)Ordered By: Willie Dhillon on 07-12-2023 Urobilinogen Ql (U) 1 mg/dl Normal [facility] Absolute lymphocyte countOrd ered By: Alex Christiansen on 06-30-2023 Lymphocytes Auto (Unsp spec) [#/Vol] 2.97 10*3/uL 0.83-4.51 [facility] Basophil percentageOrdered B y: Alex Christiansen on 06-30-2023 Basophil percentage 201 mg/dL 74-106 [facility] Basophil percentage 8.0 g/dL 6.4-8.2 [facility] Basophil percentage 0.50 mg/dL 0.20-1.00 [facility] Basophil percentage 137 mmol/L 136-145 [facility] Basophil percentage 3.3 mmol/L 3.5-5.1 [facility] Basophil percentage 103 mmol/L 98-107 [facility] Basophils (Bld) [#/Vol] 9.9 10*3/uL 4.4-11.0 [facility] Basophils (Bld) [#/Vol] 6.2 10*3/uL 2.0-7.7 [facility] Basophils/100 WBC (Bld) 62.9 % 47-70 [facility] Basophils/100 WBC (Bld) 0.1 % 0-5 [facility] Basophils/100 WBC (Bld) 0.5 % 0-1 [facility] Blood erythrocytes count (nu mber/volume)Ordered By: Alex Christiansen on 06-30-2023 RBC (Bld) [#/Vol] 4.56 10*6/uL 4.2-5.4 [facility] Blood hemoglobin measurement (mass/volume)Ordered By: Alex Christiansen on 06-30-2023 Hemoglobin (Bld) [Mass/Vol] 12.2 g/dL 12.0-15.0 [facility] Blood lymphocytes/100 leukoc ytesOrdered By: Alex Christiansen on 06-30-2023 Lymphocytes/100 WBC (Bld) 30.0 % 19-41 [facility] Blood monocytes/100 leukocyt esOrdered By: Alex Christiansen on 06-30-2023 Monocytes/100 WBC (Bld) 6.1 % 0-10 [facility] Blood platelet mean volumeOr dered By: Alex Christiansen on 06-30-2023 Platelet mean volume (Bld) [Entitic vol] 9.0 fL 6.2-12.0 [facility] Determination of erythrocyte mean corpuscular volume (MCV)Ordered By: Alex Christiansen on 06-30-2023 MCV (RBC) [Entitic vol] 84.0 fL 81-99 [facility] Hematocrit Auto (Bld) [Volum e fraction]Ordered By: Alex Christiansen on 06-30-2023 Hematocrit (Bld) [Volume fraction] 38.3 % 37-47 [facility] MCHC Auto (RBC) [Mass/Vol]Or dered By: Alex Christiansen on 06-30-2023 MCHC (RBC) [Mass/Vol] 31.9 g/dL 32-36 [facility] No Panel InformationOrdered By: Alex Christiansen on 06-30-2023 26.8 pg 27.0-32.0 [facility] 13.6 % 11.6-14.6 [facility] 41.9 fl 35.1-43.9 [facility] 0.400 % 0.0-0.9 [facility] 0 % 0-5 [facility] 81 mL/min >60 [facility] 98 mL/min >60 [facility] 88.73 ml/min [facility] 10.4 RATIO 10-20 [facility] 4.6 g/dL 2.2-4.2 [facility] 22 U/L 13-75 [facility] 114 U/L 45-117 [facility] 11 U/L 13-56 [facility] 26.0 mmol/L 21.0-32.0 [facility] Platelets bldOrdered By: Milton Christiansen on 06-30-2023 Platelets (Bld) [#/Vol] 437 10*3/uL 150-450 [facility] Serum or plasma albumin hussein urement (mass/volume)Ordered By: Alex Christiansen on 06-30-2023 Albumin [Mass/Vol] 3.4 g/dL 3.2-5.0 [facility] Serum or plasma albumin/glob ulin mass ratioOrdered By: Alex Christiansen on 06-30-2023 Albumin/Globulin [Mass ratio] 0.7 {ratio} 0.9-2.4 [facility] Serum or plasma calcium hussein urement (mass/volume)Ordered By: Alex Christiansen on 06-30-2023 Calcium [Mass/Vol] 9.4 mg/dL 8.5-10.1 [facility] Serum or plasma creatinine m easurement (mass/volume)Ordered By: Alex Christiansen on 06-30-2023 Creatinine [Mass/Vol] 0.86 mg/dL 0.55-1.02 [facility] Serum or plasma urea nitroge n measurement (mass/volume)Ordered By: Alex Christiansen on 06-30-2023 Urea nitrogen [Mass/Vol] 9 mg/dL 7-18 [facility] Thin prep Papanicolaou smear with manual screeningOrdered By: Alex Christiansen on 06-30-2023 Thin prep Papanicolaou smear with manual screening 7 U/L 15-37 [facility] Thin prep Papanicolaou smear with manual screening 8 5-15 [facility] Absolute lymphocyte countOrd ered By: Drew Hinson on 06-28-2023 Lymphocytes Auto (Unsp spec) [#/Vol] 2.31 10*3/uL 0.83-4.51 [facility] Basophil percentageOrdered B y: Drew Hinson on 06-28-2023 Basophil percentage 0-5 SEEN /hpf 0-5 [facility] Basophil percentage 221 mg/dL 74-106 [facility] Basophil percentage 9.3 g/dL 6.4-8.2 [facility] Basophil percentage 0.60 mg/dL 0.20-1.00 [facility] Basophil percentage 136 mmol/L 136-145 [facility] Basophil percentage 3.2 mmol/L 3.5-5.1 [facility] Basophil percentage 102 mmol/L 98-107 [facility] Basophils (Bld) [#/Vol] 9.2 10*3/uL 4.4-11.0 [facility] Basophils (Bld) [#/Vol] 6.4 10*3/uL 2.0-7.7 [facility] Basophils/100 WBC (Bld) 0.5 % 0-1 [facility] Basophils/100 WBC (Bld) 69.1 % 47-70 [facility] Basophils/100 WBC (Bld) 0.1 % 0-5 [facility] Bilirubin [Mass/Vol] 0.60 mg/dL 0.20-1.00 [facility] Comment on above: For patients on eltr ombopag therapy, use of Dimension [place] TBIL is not recommended. Chloride [Moles/Vol] 102 mmol/L 98-107 [facility] Eosinophils/100 WBC (Bld) 0.1 % 0-5 [facility] Glucose [Mass/Vol] 221 mg/dL 74-106 [facility] Comment on above: Glucose result great er than or equal to 200 mg/dLsuggests DIABETES MELLITUS per A.D.A. criteria. Neutrophils (Bld) [#/Vol] 6.4 10*3/uL 2.0-7.7 [facility] Neutrophils/100 WBC (Bld) 69.1 % 47-70 [facility] Potassium [Moles/Vol] 3.2 mmol/L 3.5-5.1 [facility] Protein [Mass/Vol] 9.3 g/dL 6.4-8.2 [facility] Sodium [Moles/Vol] 136 mmol/L 136-145 [facility] WBC (Bld) [#/Vol] 9.2 10*3/uL 4.4-11.0 [facility] Bilirubin Test strip Ql (U)O rdered By: Drew Hinson on 06-28-2023 Bilirubin Ql (U) 1 mg/dL Negative [facility] Comment on above: COLOR OF URINE MAY A FFECT DIPSTICK RESULTS. Blood erythrocytes count (nu mber/volume)Ordered By: Drew Hinson on 06-28-2023 RBC (Bld) [#/Vol] 4.85 10*6/uL 4.2-5.4 [facility] Blood hemoglobin measurement (mass/volume)Ordered By: Drew Hinson on 06-28-2023 Hemoglobin (Bld) [Mass/Vol] 13.0 g/dL 12.0-15.0 [facility] Blood lymphocytes/100 leukoc ytesOrdered By: Drew Hinson on 06-28-2023 Lymphocytes/100 WBC (Bld) 25.1 % 19-41 [facility] Blood monocytes/100 leukocyt esOrdered By: Drew Hinson on 06-28-2023 Monocytes/100 WBC (Bld) 4.8 % 0-10 [facility] Blood platelet mean volumeOr dered By: Drew Hinson on 06-28-2023 Platelet mean volume (Bld) [Entitic vol] 8.9 fL 6.2-12.0 [facility] Determination of erythrocyte mean corpuscular volume (MCV)Ordered By: Drew Hinson on 06-28-2023 MCV (RBC) [Entitic vol] 83.7 fL 81-99 [facility] Hematocrit Auto (Bld) [Volum e fraction]Ordered By: Drew Hinson on 06-28-2023 Hematocrit (Bld) [Volume fraction] 40.6 % 37-47 [facility] Ketones Test strip Ql (U)Ord ered By: Drew Hinson on 06-28-2023 Ketones Ql (U) 50 mg/dl Negative [facility] Laboratory - Chemistry and C hemistry - challengeOrdered By: Drew Hinson on 06-28-2023 ALP [Catalytic activity/Vol] 128 U/L 45-117 [facility] ALT [Catalytic activity/Vol] 13 U/L 13-56 [facility] CO2 [Moles/Vol] 25.0 mmol/L 21.0-32.0 [facility] Globulin (S) [Mass/Vol] 5.4 g/dL 2.2-4.2 [facility] Lipase [Catalytic activity/Vol] 28 U/L 13-75 [facility] Comment on above: Please note:LIPASE r evised reference range effective 22. New Lipase methodology. Expected to produce lower values than the previous assay method. NEW Reference Range: 13 - 75 U/L Urea nitrogen/Creatinine [Mass ratio] 11.7 mg/mg 10-20 [facility] Laboratory - Hematology and Cell countsOrdered By: Drew Hinson on 06-28-2023 Erythrocyte distribution width (RBC) [Entitic vol] 41.7 fL 35.1-43.9 [facility] Erythrocyte distribution width (RBC) [Ratio] 13.6 % 11.6-14.6 [facility] Immature granulocytes/100 WBC (Bld) 0.400 % 0.0-0.9 [facility] Comment on above: IG% - Immature Granu locytes (promyelocytes, myelocytes and metamyelocytes) > 1% indicates that a LEFT SHIFT is Present. MCH (RBC) [Entitic mass] 26.8 pg 27.0-32.0 [facility] Nucleated RBC/100 WBC (Bld) [Ratio] 0 % 0-5 [facility] MCHC Auto (RBC) [Mass/Vol]Or dered By: Drew Hinson on 06-28-2023 MCHC (RBC) [Mass/Vol] 32.0 g/dL 32-36 [facility] Mucus LM Ql (Urine sed)Order ed By: Drew Hinson on 06-28-2023 Mucus Ql (Urine sed) 1+ /hpf [facility] Nitrite Test strip Ql (U)Ord ered By: Drew Hinson on 06-28-2023 Nitrite Ql (U) Negative Negative [facility] No Panel InformationOrdered By: Drew Hinson on 06-28-2023 Estimated Creatinine Clearance Calc 81.18 ml/min [facility] Estimated GFR (MDRD) Amer 89 mL/min >60 [facility] Comment on above: GFR Calc Estimated GFR (MDRD) Non-Af Amer 74 mL/min >60 [facility] Comment on above: Non- GFR Calc 26.8 pg 27.0-32.0 [facility] 13.6 % 11.6-14.6 [facility] 41.7 fl 35.1-43.9 [facility] 0.400 % 0.0-0.9 [facility] 0 % 0-5 [facility] 74 mL/min >60 [facility] 89 mL/min >60 [facility] 81.18 ml/min [facility] 11.7 RATIO 10-20 [facility] 5.4 g/dL 2.2-4.2 [facility] 28 U/L 13-75 [facility] 128 U/L 45-117 [facility] 13 U/L 13-56 [facility] 25.0 mmol/L 21.0-32.0 [facility] Platelets bldOrdered By: Dwight Hinson on 06-28-2023 Platelets (Bld) [#/Vol] 491 10*3/uL 150-450 [facility] Protein Test strip Ql (U)Ord ered By: Drew Hinson on 06-28-2023 Protein Ql (U) 30 mg/dl Negative [facility] Serum or plasma albumin hussein urement (mass/volume)Ordered By: Drew Hinson on 06-28-2023 Albumin [Mass/Vol] 3.9 g/dL 3.2-5.0 [facility] Serum or plasma albumin/glob ulin mass ratioOrdered By: Drew Hinson on 06-28-2023 Albumin/Globulin [Mass ratio] 0.7 {ratio} 0.9-2.4 [facility] Serum or plasma calcium hussein urement (mass/volume)Ordered By: Drew Hinson on 06-28-2023 Calcium [Mass/Vol] 9.6 mg/dL 8.5-10.1 [facility] Serum or plasma creatinine m easurement (mass/volume)Ordered By: Drew Hinson on 06-28-2023 Creatinine [Mass/Vol] 0.94 mg/dL 0.55-1.02 [facility] Comment on above: The validity of the calculated GFR & GFRAA in patients over 70 years has not been determined. Clinical correlation is essential. Serum or plasma urea nitroge n measurement (mass/volume)Ordered By: Drew Hinson on 06-28-2023 Urea nitrogen [Mass/Vol] 11 mg/dL 7-18 [facility] Squamous epithelial cells de tection in urine sediment by light microscopyOrdered By: Drew Hinson on 06-28-2023 Epithelial cells.squamous LM Ql (Urine sed) 5-10 SEEN /hpf 5-10 [facility] Thin prep Papanicolaou smear with manual screeningOrdered By: Drew Hinson on 06-28-2023 Thin prep Papanicolaou smear with manual screening 11 U/L 15-37 [facility] Thin prep Papanicolaou smear with manual screening 9 5-15 [facility] Urine blood detectionOrdered By: Drew Hinson on 06-28-2023 RBC Ql (U) 25 /ul Negative [facility] RBC Ql (U) 0-5 SEEN /hpf 0-5 [facility] Urine clarityOrdered By: Dwight Hinson on 06-28-2023 Clarity (U) Cloudy Clear [facility] Urine color determinationOrd ered By: Drew Hinson on 06-28-2023 Color (U) Yellow Yellow [facility] Urine glucose detectionOrder ed By: Drew Hinson on 06-28-2023 Glucose Ql (U) 50 mg/dl Normal [facility] Urine leukocyte esterase det ection by dipstickOrdered By: Drew Hinson on 06-28-2023 Leukocyte esterase Test strip Ql (U) 25 /ul Negative [facility] Urine pHOrdered By: Drew castellanos on 06-28-2023 pH (U) 6.0 [pH] 5.0 - 8.0 [facility] Urine sediment bacteria coun t by microscopy (number/high power field)Ordered By: Drew Hinson on 06-28-2023 Bacteria LM.HPF (Urine sed) [#/Area] 2 /[HPF] None Seen [facility] Urine specific gravity measu rementOrdered By: Drew Hinson on 06-28-2023 Specific gravity (U) [Rel density] 1.020 1.002-1.030 [facility] Urobilinogen Auto test strip Ql (U)Ordered By: Drew Hinson on 06-28-2023 Urobilinogen Ql (U) 1 mg/dl Normal [facility] Absolute lymphocyte countOrd ered By: Taiwo Chen on 06-26-2023 Lymphocytes Auto (Unsp spec) [#/Vol] 2.63 10*3/uL 0.83-4.51 [facility] Basophil percentageOrdered B y: Taiwo Chen on 06-26-2023 Basophil percentage 228 mg/dL 74-106 [facility] Basophil percentage 8.4 g/dL 6.4-8.2 [facility] Basophil percentage 0.30 mg/dL 0.20-1.00 [facility] Basophil percentage 136 mmol/L 136-145 [facility] Basophil percentage 3.8 mmol/L 3.5-5.1 [facility] Basophil percentage 102 mmol/L 98-107 [facility] Basophils (Bld) [#/Vol] 8.6 10*3/uL 4.4-11.0 [facility] Basophils (Bld) [#/Vol] 5.5 10*3/uL 2.0-7.7 [facility] Basophils/100 WBC (Bld) 0.6 % 0-1 [facility] Basophils/100 WBC (Bld) 63.6 % 47-70 [facility] Basophils/100 WBC (Bld) 0.2 % 0-5 [facility] Bilirubin [Mass/Vol] 0.30 mg/dL 0.20-1.00 [facility] Comment on above: For patients on eltr ombopag therapy, use of Dimension [place] TBIL is not recommended. Chloride [Moles/Vol] 102 mmol/L 98-107 [facility] Eosinophils/100 WBC (Bld) 0.2 % 0-5 [facility] Glucose [Mass/Vol] 228 mg/dL 74-106 [facility] Comment on above: Glucose result great er than or equal to 200 mg/dLsuggests DIABETES MELLITUS per A.D.A. criteria. Neutrophils (Bld) [#/Vol] 5.5 10*3/uL 2.0-7.7 [facility] Neutrophils/100 WBC (Bld) 63.6 % 47-70 [facility] Potassium [Moles/Vol] 3.8 mmol/L 3.5-5.1 [facility] Protein [Mass/Vol] 8.4 g/dL 6.4-8.2 [facility] Sodium [Moles/Vol] 136 mmol/L 136-145 [facility] WBC (Bld) [#/Vol] 8.6 10*3/uL 4.4-11.0 [facility] Blood erythrocytes count (nu mber/volume)Ordered By: Taiwo Chen on 06-26-2023 RBC (Bld) [#/Vol] 4.31 10*6/uL 4.2-5.4 [facility] Blood hemoglobin measurement (mass/volume)Ordered By: Taiwo Chen on 06-26-2023 Hemoglobin (Bld) [Mass/Vol] 11.6 g/dL 12.0-15.0 [facility] Blood lymphocytes/100 leukoc ytesOrdered By: Taiwo Chen on 06-26-2023 Lymphocytes/100 WBC (Bld) 30.6 % 19-41 [facility] Blood monocytes/100 leukocyt esOrdered By: Taiwo Chen on 06-26-2023 Monocytes/100 WBC (Bld) 4.3 % 0-10 [facility] Blood platelet mean volumeOr dered By: Taiwo Chen on 06-26-2023 Platelet mean volume (Bld) [Entitic vol] 9.3 fL 6.2-12.0 [facility] Determination of erythrocyte mean corpuscular volume (MCV)Ordered By: Taiwo Chen on 06-26-2023 MCV (RBC) [Entitic vol] 84.7 fL 81-99 [facility] Hematocrit Auto (Bld) [Volum e fraction]Ordered By: Taiwo Cehn on 06-26-2023 Hematocrit (Bld) [Volume fraction] 36.5 % 37-47 [facility] Laboratory - Chemistry and C hemistry - challengeOrdered By: Taiwo Chen on 06-26-2023 ALP [Catalytic activity/Vol] 135 U/L 45-117 [facility] ALT [Catalytic activity/Vol] 15 U/L 13-56 [facility] CO2 [Moles/Vol] 26.0 mmol/L 21.0-32.0 [facility] Globulin (S) [Mass/Vol] 5.0 g/dL 2.2-4.2 [facility] Urea nitrogen/Creatinine [Mass ratio] 11.4 mg/mg 10- [facility] Laboratory - Hematology and Cell countsOrdered By: Taiwo Chen on 06-26-2023 Erythrocyte distribution width (RBC) [Entitic vol] 42.7 fL 35.1-43.9 [facility] Erythrocyte distribution width (RBC) [Ratio] 13.7 % 11.6-14.6 [facility] Immature granulocytes/100 WBC (Bld) 0.700 % 0.0-0.9 [facility] Comment on above: IG% - Immature Granu locytes (promyelocytes, myelocytes and metamyelocytes) > 1% indicates that a LEFT SHIFT is Present. MCH (RBC) [Entitic mass] 26.9 pg 27.0-32.0 [facility] Nucleated RBC/100 WBC (Bld) [Ratio] 0 % 0-5 [facility] MCHC Auto (RBC) [Mass/Vol]Or dered By: Taiwo Chen on 06-26-2023 MCHC (RBC) [Mass/Vol] 31.8 g/dL 32-36 [facility] No Panel InformationOrdered By: Taiwo Chen on 06-26-2023 Estimated Creatinine Clearance Calc 86.71 ml/min [facility] Estimated GFR (MDRD) Amer 97 mL/min >60 [facility] Comment on above: GFR Calc Estimated GFR (MDRD) Non-Af Amer 80 mL/min >60 [facility] Comment on above: Non- GFR Calc 26.9 pg 27.0-32.0 [facility] 13.7 % 11.6-14.6 [facility] 42.7 fl 35.1-43.9 [facility] 0.700 % 0.0-0.9 [facility] 0 % 0-5 [facility] 80 mL/min >60 [facility] 97 mL/min >60 [facility] 86.71 ml/min [facility] 11.4 RATIO 10- [facility] 5.0 g/dL 2.2-4.2 [facility] 135 U/L 45-117 [facility] 15 U/L 13-56 [facility] 26.0 mmol/L 21.0-32.0 [facility] Platelets bldOrdered By: Liss goldberg April on 06-26-2023 Platelets (Bld) [#/Vol] 464 10*3/uL 150-450 [facility] Serum or plasma albumin hussein urement (mass/volume)Ordered By: Taiwo Chen on 06-26-2023 Albumin [Mass/Vol] 3.4 g/dL 3.2-5.0 [facility] Serum or plasma albumin/glob ulin mass ratioOrdered By: Taiwo Chen on 06-26-2023 Albumin/Globulin [Mass ratio] 0.7 {ratio} 0.9-2.4 [facility] Serum or plasma calcium hussein urement (mass/volume)Ordered By: Taiwo Chen on 06-26-2023 Calcium [Mass/Vol] 9.5 mg/dL 8.5-10.1 [facility] Serum or plasma creatinine m easurement (mass/volume)Ordered By: Taiwo Chen on 06-26-2023 Creatinine [Mass/Vol] 0.88 mg/dL 0.55-1.02 [facility] Comment on above: The validity of the calculated GFR & GFRAA in patients over 70 years has not been determined. Clinical correlation is essential. Serum or plasma urea nitroge n measurement (mass/volume)Ordered By: Taiwo Chen on 06-26-2023 Urea nitrogen [Mass/Vol] 10 mg/dL 7-18 [facility] Thin prep Papanicolaou smear with manual screeningOrdered By: Taiwo Chen on 06-26-2023 Thin prep Papanicolaou smear with manual screening 8 U/L 15-37 [facility] Thin prep Papanicolaou smear with manual screening 8 5-15 [facility] Absolute lymphocyte countOrd ered By: Tesfaye Mitchell on 06-25-2023 Lymphocytes Auto (Unsp spec) [#/Vol] 2.74 10*3/uL 0.83-4.51 [facility] Basophil percentageOrdered B y: Tesfaye Mitchell on 06-25-2023 Basophil percentage 259 mg/dL 74-106 [facility] Basophil percentage 8.7 g/dL 6.4-8.2 [facility] Basophil percentage 0.40 mg/dL 0.20-1.00 [facility] Basophil percentage 137 mmol/L 136-145 [facility] Basophil percentage 4.0 mmol/L 3.5-5.1 [facility] Basophil percentage 103 mmol/L 98-107 [facility] Basophils (Bld) [#/Vol] 11.7 10*3/uL 4.4-11.0 [facility] Basophils (Bld) [#/Vol] 8.5 10*3/uL 2.0-7.7 [facility] Basophils/100 WBC (Bld) 0.4 % 0-1 [facility] Basophils/100 WBC (Bld) 72.6 % 47-70 [facility] Basophils/100 WBC (Bld) 0.0 % 0-5 [facility] Bilirubin [Mass/Vol] 0.40 mg/dL 0.20-1.00 [facility] Comment on above: For patients on eltr ombopag therapy, use of Dim[employer] [place] TBIL is not recommended. Chloride [Moles/Vol] 103 mmol/L 98-107 [facility] Eosinophils/100 WBC (Bld) 0.0 % 0-5 [facility] Glucose [Mass/Vol] 259 mg/dL 74-106 [facility] Comment on above: Glucose result great er than or equal to 200 mg/dLsuggests DIABETES MELLITUS per A.D.A. criteria. Neutrophils (Bld) [#/Vol] 8.5 10*3/uL 2.0-7.7 [facility] Neutrophils/100 WBC (Bld) 72.6 % 47-70 [facility] Potassium [Moles/Vol] 4.0 mmol/L 3.5-5.1 [facility] Protein [Mass/Vol] 8.7 g/dL 6.4-8.2 [facility] Sodium [Moles/Vol] 137 mmol/L 136-145 [facility] WBC (Bld) [#/Vol] 11.7 10*3/uL 4.4-11.0 [facility] Basophil percentage 0-5 SEEN /hpf 0-5 [facility] Bilirubin Test strip Ql (U)O rdered By: Tesfaye Mitchell on 06-25-2023 Bilirubin Ql (U) Negative Negative [facility] Blood erythrocytes count (nu mber/volume)Ordered By: Tesfaye Mitchell on 06-25-2023 RBC (Bld) [#/Vol] 4.53 10*6/uL 4.2-5.4 [facility] Blood hemoglobin measurement (mass/volume)Ordered By: Tesfaye Mitchell on 06-25-2023 Hemoglobin (Bld) [Mass/Vol] 12.0 g/dL 12.0-15.0 [facility] Blood lymphocytes/100 leukoc ytesOrdered By: Tesfaye Mitchlel on 06-25-2023 Lymphocytes/100 WBC (Bld) 23.5 % 19-41 [facility] Blood monocytes/100 leukocyt esOrdered By: Tesfaye Mitchell on 06-25-2023 Monocytes/100 WBC (Bld) 2.9 % 0-10 [facility] Blood platelet mean volumeOr dered By: Tesfaye Mitchell on 06-25-2023 Platelet mean volume (Bld) [Entitic vol] 9.1 fL 6.2-12.0 [facility] Determination of erythrocyte mean corpuscular volume (MCV)Ordered By: Tesfaye Mitchell on 06-25-2023 MCV (RBC) [Entitic vol] 84.3 fL 81-99 [facility] Hematocrit Auto (Bld) [Volum e fraction]Ordered By: Tesfaye Mitchell on 06-25-2023 Hematocrit (Bld) [Volume fraction] 38.2 % 37-47 [facility] Ketones Test strip Ql (U)Ord ered By: Tesfaye Mitchell on 06-25-2023 Ketones Ql (U) 15 mg/dl Negative [facility] Laboratory - Chemistry and C hemistry - challengeOrdered By: Tesfaye Mitchell on 06-25-2023 ALP [Catalytic activity/Vol] 156 U/L 45-117 [facility] ALT [Catalytic activity/Vol] 15 U/L -56 [facility] CO2 [Moles/Vol] 24.0 mmol/L 21.0-32.0 [facility] Globulin (S) [Mass/Vol] 5.4 g/dL 2.2-4.2 [facility] Lipase [Catalytic activity/Vol] 32 U/L -75 [facility] Comment on above: Please note:LIPASE r evised reference range effective 22. New Lipase methodology. Expected to produce lower values than the previous assay method. NEW Reference Range: 13 - 75 U/L Urea nitrogen/Creatinine [Mass ratio] 15.7 mg/mg 10-20 [facility] Laboratory - Drug toxicology Ordered By: Tesfaye Mitchell on 06-25-2023 Amphetamines Ql (U) Negative <1000 ng/mL [facility] Benzodiazepines Ql (U) Negative < 200 ng/mL [facility] Cannabinoids Screen Ql (U) Negative < 50 ng/mL [facility] Cocaine Ql (U) Negative < 300 ng/mL [facility] Opiates Ql (U) Negative < 300 ng/mL [facility] Laboratory - Hematology and Cell countsOrdered By: Tesfaye Mitchell on 06-25-2023 Erythrocyte distribution width (RBC) [Entitic vol] 42.4 fL 35.1-43.9 [facility] Erythrocyte distribution width (RBC) [Ratio] 13.7 % 11.6-14.6 [facility] Immature granulocytes/100 WBC (Bld) 0.600 % 0.0-0.9 [facility] Comment on above: IG% - Immature Granu locytes (promyelocytes, myelocytes and metamyelocytes) > 1% indicates that a LEFT SHIFT is Present. MCH (RBC) [Entitic mass] 26.5 pg 27.0-32.0 [facility] Nucleated RBC/100 WBC (Bld) [Ratio] 0 % 0-5 [facility] MCHC Auto (RBC) [Mass/Vol]Or dered By: Tesfaye Mitchell on 06-25-2023 MCHC (RBC) [Mass/Vol] 31.4 g/dL 32-36 [facility] Mucus LM Ql (Urine sed)Order ed By: Tesfaye Mitchell on 06-25-2023 Mucus Ql (Urine sed) 0 SEEN /hpf [facility] Nitrite Test strip Ql (U)Ord ered By: Tesfaye Mitchell on 06-25-2023 Nitrite Ql (U) Negative Negative [facility] No Panel InformationOrdered By: Tesfaye Mitchell on 06-25-2023 Estimated Creatinine Clearance Calc 91.94 ml/min [facility] Estimated GFR (MDRD) Amer 103 mL/min >60 [facility] Comment on above: GFR Calc Estimated GFR (MDRD) Non-Af Amer 85 mL/min >60 [facility] Comment on above: Non- GFR Calc 26.5 pg 27.0-32.0 [facility] 13.7 % 11.6-14.6 [facility] 42.4 fl 35.1-43.9 [facility] 0.600 % 0.0-0.9 [facility] 0 % 0-5 [facility] 85 mL/min >60 [facility] 103 mL/min >60 [facility] 91.94 ml/min [facility] 15.7 RATIO 10-20 [facility] 5.4 g/dL 2.2-4.2 [facility] 32 U/L 13-75 [facility] 156 U/L 45-117 [facility] 15 U/L 13-56 [facility] 24.0 mmol/L 21.0-32.0 [facility] MDMA (Ecstasy) Screen Positive < 500 ng/mL [facility] Urine Barbiturates Screen Negative < 200 ng/mL [facility] Urine Drug Screen Comment [facility] Comment on above: CONFIRMATORY TESTING FOR [...] Urine Methadone Screen Negative < 300 ng/mL [facility] Negative < 50 ng/mL [facility] Positive < 500 ng/mL [facility] Platelets bldOrdered By: Mauro Mitchell on 06-25-2023 Platelets (Bld) [#/Vol] 497 10*3/uL 150-450 [facility] Protein Test strip Ql (U)Ord ered By: Tesfaye Mitchell on 06-25-2023 Protein Ql (U) 30 mg/dl Negative [facility] Serum or plasma albumin hussein urement (mass/volume)Ordered By: Tesfyae Mitchell on 06-25-2023 Albumin [Mass/Vol] 3.3 g/dL 3.2-5.0 [facility] Serum or plasma albumin/glob ulin mass ratioOrdered By: Tesfaye Mitchell on 06-25-2023 Albumin/Globulin [Mass ratio] 0.6 {ratio} 0.9-2.4 [facility] Serum or plasma calcium hussein urement (mass/volume)Ordered By: Tesfaye Mitchell on 06-25-2023 Calcium [Mass/Vol] 9.6 mg/dL 8.5-10.1 [facility] Serum or plasma creatinine m easurement (mass/volume)Ordered By: Tesfaye Mitchell on 06-25-2023 Creatinine [Mass/Vol] 0.83 mg/dL 0.55-1.02 [facility] Comment on above: The validity of the calculated GFR & GFRAA in patients over 70 years has not been determined. Clinical correlation is essential. Serum or plasma urea nitroge n measurement (mass/volume)Ordered By: Tesfaye Mitchell on 06-25-2023 Urea nitrogen [Mass/Vol] 13 mg/dL 7-18 [facility] Squamous epithelial cells de tection in urine sediment by light microscopyOrdered By: Tesfaye Mitchell on 06-25-2023 Epithelial cells.squamous LM Ql (Urine sed) 5-10 SEEN /hpf 5-10 [facility] Thin prep Papanicolaou smear with manual screeningOrdered By: Tesfaye Mitchell on 06-25-2023 Thin prep Papanicolaou smear with manual screening 14 U/L 15-37 [facility] Thin prep Papanicolaou smear with manual screening 10 5-15 [facility] Urine blood detectionOrdered By: Tesfaye Mitchell on 06-25-2023 RBC Ql (U) 250 /ul Negative [facility] RBC Ql (U) > 100 SEEN /hpf 0-5 [facility] Urine clarityOrdered By: Mauro Mitchell on 06-25-2023 Clarity (U) Sl. Cloudy Clear [facility] Urine color determinationOrd ered By: Tesfaye Mitchell on 06-25-2023 Color (U) Yellow Yellow [facility] Urine glucose detectionOrder ed By: Tesfaye Mitchell on 06-25-2023 Glucose Ql (U) 250 mg/dl Normal [facility] Urine leukocyte esterase det ection by dipstickOrdered By: Tesfaye Mitchell on 06-25-2023 Leukocyte esterase Test strip Ql (U) 25 /ul Negative [facility] Urine pHOrdered By: Tesfaye figueroa on 06-25-2023 pH (U) 7.0 [pH] 5.0 - 8.0 [facility] Urine phencyclidine (PCP) de tectionOrdered By: Tesfaye Mitchell on 06-25-2023 Phencyclidine Ql (U) Negative < 25 ng/mL [facility] Urine sediment bacteria coun t by microscopy (number/high power field)Ordered By: Tesfaye Mitchell on 06-25-2023 Bacteria LM.HPF (Urine sed) [#/Area] 0 /[HPF] None Seen [facility] Urine specific gravity measu rementOrdered By: Tesfaye Mitchell on 06-25-2023 Specific gravity (U) [Rel density] 1.010 1.002-1.030 [facility] Urobilinogen Auto test strip Ql (U)Ordered By: Tesfaye Mitchell on 06-25-2023 Urobilinogen Ql (U) Normal mg/dl Normal [facility] Anaerobic cultureOrdered By: Abdirizak Forrest on 05-18-2023 Bacteria identified Anaer cx Nom (Unsp spec) No anaerobic bacteria isolated. [facility] Bacteria identified Cx Nom ( Wound)Ordered By: Abdirizak Forrest on 05-18-2023 Wound Culture Meth. resistant Stap h. aureus [facility] Routine wound culture Meth. resistant St aph. aureus [facility] Fungus cultureOrdered By: Neva Forrest on 05-18-2023 Fungus identified Cx Nom (Unsp spec) [facility] Gram stain for investigation of transfusion reactionOrdered By: Abdirizak Forrest on 05-18-2023 Microscopic observation Gram stain Nom (Unsp spec) [facility] Glucose Glucometer (BldC) [M ass/Vol]Ordered By: Rickey Gifford on 05-09-2023 Glucose [Mass/Vol] 157 mg/dL 74-106 [facility] Comment on above: MANAGEMENT OF PATIEN T CARE PER NURSING PROTOCOL Basophil percentageOrdered B y: Rickey Gifford on 05-07-2023 Basophil percentage 161 mg/dL 74-106 [facility] Basophil percentage 138 mmol/L 136-145 [facility] Basophil percentage 4.0 mmol/L 3.5-5.1 [facility] Basophil percentage 108 mmol/L 98-107 [facility] Chloride [Moles/Vol] 108 mmol/L 98-107 [facility] Glucose [Mass/Vol] 161 mg/dL 74-106 [facility] Comment on above: Fasting Glucose resu lt greater than or equal to 126 mg/dL suggests DIABETES MELLITUS per A.D.A. criteria. Potassium [Moles/Vol] 4.0 mmol/L 3.5-5.1 [facility] Sodium [Moles/Vol] 138 mmol/L 136-145 [facility] Laboratory - Chemistry and C hemistry - challengeOrdered By: Rickey Gifford on 05-07-2023 CO2 [Moles/Vol] 26.0 mmol/L 21.0-32.0 [facility] Urea nitrogen/Creatinine [Mass ratio] 17.1 mg/mg 04-30 [facility] No Panel InformationOrdered By: Rickey Gifford on 05-07-2023 Estimated Creatinine Clearance Calc 131.56 ml/min [facility] Estimated GFR (MDRD) Amer 154 mL/min >60 [facility] Comment on above: GFR Calc Estimated GFR (MDRD) Non-Af Amer 127 mL/min >60 [facility] Comment on above: Non- GFR Calc 127 mL/min >60 [facility] 154 mL/min >60 [facility] 131.56 ml/min [facility] 17.1 RATIO 04-30 [facility] 26.0 mmol/L 21.0-32.0 [facility] Serum or plasma calcium hussein urement (mass/volume)Ordered By: Rickey Gifford on 05-07-2023 Calcium [Mass/Vol] 8.4 mg/dL 8.5-10.1 [facility] Serum or plasma creatinine m easurement (mass/volume)Ordered By: Rickey Gifford on 05-07-2023 Creatinine [Mass/Vol] 0.58 mg/dL 0.55-1.02 [facility] Comment on above: The validity of the calculated GFR & GFRAA in patients over 70 years has not been determined. Clinical correlation is essential. Serum or plasma urea nitroge n measurement (mass/volume)Ordered By: Rickey Gifford on 05-07-2023 Urea nitrogen [Mass/Vol] 10 mg/dL 7-18 [facility] Thin prep Papanicolaou smear with manual screeningOrdered By: Rickeyronal Gifford on 05-07-2023 Thin prep Papanicolaou smear with manual screening 4 5-15 [facility] Absolute lymphocyte countOrd ered By: Rickey Gifford on 05-06-2023 Lymphocytes Auto (Unsp spec) [#/Vol] 2.89 10*3/uL 0.83-4.51 [facility] Basophil percentageOrdered B y: Rickey Gifford on 05-06-2023 Basophils (Bld) [#/Vol] 5.8 10*3/uL 4.4-11.0 [facility] Basophils (Bld) [#/Vol] 2.4 10*3/uL 2.0-7.7 [facility] Basophils/100 WBC (Bld) 40.5 % 47-70 [facility] Basophils/100 WBC (Bld) 0.3 % 0-5 [facility] Basophils/100 WBC (Bld) 0.5 % 0-1 [facility] Eosinophils/100 WBC (Bld) 0.3 % 0-5 [facility] Neutrophils (Bld) [#/Vol] 2.4 10*3/uL 2.0-7.7 [facility] Neutrophils/100 WBC (Bld) 40.5 % 47-70 [facility] WBC (Bld) [#/Vol] 5.8 10*3/uL 4.4-11.0 [facility] Blood erythrocytes count (nu mber/volume)Ordered By: Rickey Gifford on 05-06-2023 RBC (Bld) [#/Vol] 3.54 10*6/uL 4.2-5.4 [facility] Blood hemoglobin measurement (mass/volume)Ordered By: Rickey Gifford on 05-06-2023 Hemoglobin (Bld) [Mass/Vol] 10.1 g/dL 12.0-15.0 [facility] Blood lymphocytes/100 leukoc ytesOrdered By: Rickey Gifford on 05-06-2023 Lymphocytes/100 WBC (Bld) 49.6 % 19-41 [facility] Blood monocytes/100 leukocyt esOrdered By: Rickey Gifford on 05-06-2023 Monocytes/100 WBC (Bld) 8.4 % 0-10 [facility] Blood platelet mean volumeOr dered By: Rickey Gifford on 05-06-2023 Platelet mean volume (Bld) [Entitic vol] 9.4 fL 6.2-12.0 [facility] Determination of erythrocyte mean corpuscular volume (MCV)Ordered By: Rickey Gifford on 05-06-2023 MCV (RBC) [Entitic vol] 92.7 fL 81-99 [facility] Hematocrit Auto (Bld) [Volum e fraction]Ordered By: Rickey Gifford on 05-06-2023 Hematocrit (Bld) [Volume fraction] 32.8 % 37-47 [facility] Laboratory - Hematology and Cell countsOrdered By: Rickey Gifford on 05-06-2023 Erythrocyte distribution width (RBC) [Entitic vol] 54.6 fL 35.1-43.9 [facility] Erythrocyte distribution width (RBC) [Ratio] 15.9 % 11.6-14.6 [facility] Immature granulocytes/100 WBC (Bld) 0.700 % 0.0-0.9 [facility] Comment on above: IG% - Immature Granu locytes (promyelocytes, myelocytes and metamyelocytes) > 1% indicates that a LEFT SHIFT is Present. MCH (RBC) [Entitic mass] 28.5 pg 27.0-32.0 [facility] Nucleated RBC/100 WBC (Bld) [Ratio] 0 % 0-5 [facility] MCHC Auto (RBC) [Mass/Vol]Or dered By: Rickey Gifford on 05-06-2023 MCHC (RBC) [Mass/Vol] 30.8 g/dL 32-36 [facility] No Panel InformationOrdered By: Rickey Gifford on 05-06-2023 28.5 pg 27.0-32.0 [facility] 15.9 % 11.6-14.6 [facility] 54.6 fl 35.1-43.9 [facility] 0.700 % 0.0-0.9 [facility] 0 % 0-5 [facility] Platelets bldOrdered By: Ivy Gifford on 05-06-2023 Platelets (Bld) [#/Vol] 317 10*3/uL 150-450 [facility] Serum or plasma trough vanco mycin levelOrdered By: Rickey Gifford on 05-05-2023 Vancomycin trough [Mass/Vol] 15.1 ug/mL 5.0-15.0 [facility] Comment on above: VANCOMYCIN STANDARED DRUG THERAPY TROUGH LEVEL: 5.0 - 15.0 mg/L VANCOMYCIN HIGH INTENSITY THERAPY TROUGH LEVEL: 15.0 - 20.0 mg/L High Intensity therapy recommended for serious lifethreatening infections include:- Mrbofglhnw-Cjzarzyymqzx-Pwvnyxsun (Ventilator/Healtcare Associated)-Sepsis PLEASE CONTACT PHARMACY SERVICES (#[id number]) FOR INTERPRETATIONOF RESULTS. Absolute lymphocyte countOrd ered By: Javy Doss on 05-04-2023 Lymphocytes Auto (Unsp spec) [#/Vol] 1.65 10*3/uL 0.83-4.51 [facility] Bacteria identified Anaer cx Nom (Unsp spec)Ordered By: Abdirizak Forrest on 05-04-2023 Anaerobic Culture Bacteroides fragilis [facility] Bacteria identified Cx Nom ( Wound)Ordered By: Abdirizak Forrest on 05-04-2023 Wound Culture Streptococcus dysgalactiae dys [facility] Routine wound culture Streptococcus dysgalactiae dys [facility] Basophil percentageOrdered B y: Javy Doss on 05-04-2023 Basophil percentage 207 mg/dL 74-106 [facility] Basophil percentage 133 mmol/L 136-145 [facility] Basophil percentage 3.8 mmol/L 3.5-5.1 [facility] Basophil percentage 102 mmol/L 98-107 [facility] Basophil percentage 1.9 mmol/L 0.4-2.0 [facility] Basophils (Bld) [#/Vol] 11.1 10*3/uL 4.4-11.0 [facility] Basophils (Bld) [#/Vol] 8.1 10*3/uL 2.0-7.7 [facility] Basophils/100 WBC (Bld) 73.2 % 47-70 [facility] Basophils/100 WBC (Bld) 0.0 % 0-5 [facility] Basophils/100 WBC (Bld) 0.4 % 0-1 [facility] Lactate [Moles/Vol] 1.9 mmol/L 0.4-2.0 [facility] Blood erythrocytes count (nu mber/volume)Ordered By: Javy Doss on 05-04-2023 RBC (Bld) [#/Vol] 3.68 10*6/uL 4.2-5.4 [facility] Blood hemoglobin measurement (mass/volume)Ordered By: Javy Doss on 05-04-2023 Hemoglobin (Bld) [Mass/Vol] 10.5 g/dL 12.0-15.0 [facility] Blood lymphocytes/100 leukoc ytesOrdered By: Javy Doss on 05-04-2023 Lymphocytes/100 WBC (Bld) 14.9 % 19-41 [facility] Blood monocytes/100 leukocyt esOrdered By: Javy Doss on 05-04-2023 Monocytes/100 WBC (Bld) 10.2 % 0-10 [facility] Blood platelet mean volumeOr dered By: Javy Doss on 05-04-2023 Platelet mean volume (Bld) [Entitic vol] 9.2 fL 6.2-12.0 [facility] Determination of erythrocyte mean corpuscular volume (MCV)Ordered By: Javy Doss on 05-04-2023 MCV (RBC) [Entitic vol] 89.1 fL 81-99 [facility] Erythrocyte sedimentation ra teOrdered By: Abdirizak Forrest on 05-04-2023 ESR (Bld) [Velocity] 88 mm/h 0-30 [facility] Fungus cultureOrdered By: Neva Forrest on 05-04-2023 Fungus identified Cx Nom (Unsp spec) [facility] Fungus stainOrdered By: Jonas Forrest on 05-04-2023 Fungus identified Fungus stain Nom (Unsp spec) [facility] Gram stain for investigation of transfusion reactionOrdered By: Abdirizak Forrest on 05-04-2023 Microscopic observation Gram stain Nom (Unsp spec) [facility] Microscopic observation Gram stain Nom (Unsp spec) [facility] Hematocrit Auto (Bld) [Volum e fraction]Ordered By: Javy Doss on 05-04-2023 Hematocrit (Bld) [Volume fraction] 32.8 % 37-47 [facility] Laboratory - Chemistry and C hemistry - challengeOrdered By: Ronald Hilario on 05-04-2023 HCG ( test) Ql (U) Negative [facility] Comment on above: Very dilute urine sp ecimens, as indicated by a low specificgravity, may not contain sales representative metals levels of hCG. If is still suspected, a first morning urinespecimen should be collected 48 hours later and tested. Laboratory - Microbiology an d Antimicrobial susceptibilityOrdered By: Javy Doss on 05-04-2023 Bacteria identified Cx Nom (Bld) No growth in 5 days. [facility] MCHC Auto (RBC) [Mass/Vol]Or dered By: Javy Doss on 05-04-2023 MCHC (RBC) [Mass/Vol] 32.0 g/dL 32-36 [facility] No Panel InformationOrdered By: Ronald Hilario on 05-04-2023 Negative [facility] No Panel InformationOrdered By: Javy Doss on 05-04-2023 No growth in 5 days. [facility] 28.5 pg 27.0-32.0 [facility] 15.9 % 11.6-14.6 [facility] 52.3 fl 35.1-43.9 [facility] 1.300 % 0.0-0.9 [facility] 0 % 0-5 [facility] 100 mL/min >60 [facility] 121 mL/min >60 [facility] 105.98 ml/min [facility] 12.5 RATIO 10-20 [facility] 27.0 mmol/L 21.0-32.0 [facility] Platelets bldOrdered By: Haylee Doss on 05-04-2023 Platelets (Bld) [#/Vol] 333 10*3/uL 150-450 [facility] Serum or plasma C reactive p rotein measurement (mass/volume)Ordered By: Abdirizak Forrest on 05-04-2023 CRP [Mass/Vol] 117.00 mg/L 0.0-3.0 [facility] Comment on above: C-Reactive Protein ( CRP) provides useful information for thediagnosis, therapy and monitoring of inflammatory processesand associated diseases. For the evaluation of Relative Riskfor Cardiovascular Disease, a High Sensitivity CRP (HSCRP)should be ordered. Serum or plasma calcium hussein urement (mass/volume)Ordered By: Javy Romario on 05-04-2023 Calcium [Mass/Vol] 8.7 mg/dL 8.5-10.1 [facility] Serum or plasma creatinine m easurement (mass/volume)Ordered By: [facility] Romario on 05-04-2023 Creatinine [Mass/Vol] 0.72 mg/dL 0.55-1.02 [facility] Serum or plasma urea nitroge n measurement (mass/volume)Ordered By: Javy Zamudiomeño on 05-04-2023 Urea nitrogen [Mass/Vol] 9 mg/dL 7-18 [facility] Thin prep Papanicolaou smear with manual screeningOrdered By: Javy Zamudiomeño on 05-04-2023 Thin prep Papanicolaou smear with manual screening 4 5-15 [facility] Whole blood hemoglobin A1c/t otal hemoglobin ratio (mass fraction)Ordered By: Abdirizak Forrest on 05-04-2023 HbA1c (Bld) [Mass fraction] 7.2 % 3.8-5.6 [facility] Comment on above: Normal < 5.7 % Predi abetic 5.7 - 6.4 % Diabetic >or= 6.5 % Please note range changes. Absolute lymphocyte countOrd ered By: Deann Guerrero on 04-14-2023 Lymphocytes Auto (Unsp spec) [#/Vol] 3.05 10*3/uL 0.83-4.51 [facility] Basophil percentageOrdered B y: Deann Guerrero on 04-14-2023 Basophil percentage 179 mg/dL 74-106 [facility] Basophil percentage 8.2 g/dL 6.4-8.2 [facility] Basophil percentage 0.60 mg/dL 0.20-1.00 [facility] Basophil percentage 135 mmol/L 136-145 [facility] Basophil percentage 3.6 mmol/L 3.5-5.1 [facility] Basophil percentage 103 mmol/L 98-107 [facility] Basophils (Bld) [#/Vol] 7.8 10*3/uL 4.4-11.0 [facility] Basophils (Bld) [#/Vol] 4.1 10*3/uL 2.0-7.7 [facility] Basophils/100 WBC (Bld) 52.8 % 47-70 [facility] Basophils/100 WBC (Bld) 0.3 % 0-5 [facility] Basophils/100 WBC (Bld) 0.5 % 0-1 [facility] Bilirubin [Mass/Vol] 0.60 mg/dL 0.20-1.00 [facility] Comment on above: For patients on eltr ombopag therapy, use of [employer] [place] TBIL is not recommended. Chloride [Moles/Vol] 103 mmol/L 98-107 [facility] Eosinophils/100 WBC (Bld) 0.3 % 0-5 [facility] Glucose [Mass/Vol] 179 mg/dL 74-106 [facility] Comment on above: Fasting Glucose resu lt greater than or equal to 126 mg/dL suggests DIABETES MELLITUS per A.D.A. criteria. Neutrophils (Bld) [#/Vol] 4.1 10*3/uL 2.0-7.7 [facility] Neutrophils/100 WBC (Bld) 52.8 % 47-70 [facility] Potassium [Moles/Vol] 3.6 mmol/L 3.5-5.1 [facility] Protein [Mass/Vol] 8.2 g/dL 6.4-8.2 [facility] Sodium [Moles/Vol] 135 mmol/L 136-145 [facility] WBC (Bld) [#/Vol] 7.8 10*3/uL 4.4-11.0 [facility] Blood erythrocytes count (nu mber/volume)Ordered By: Deann Guerrero on 04-14-2023 RBC (Bld) [#/Vol] 4.57 10*6/uL 4.2-5.4 [facility] Blood hemoglobin measurement (mass/volume)Ordered By: Deann Guerrero on 04-14-2023 Hemoglobin (Bld) [Mass/Vol] 12.8 g/dL 12.0-15.0 [facility] Blood lymphocytes/100 leukoc ytesOrdered By: Deann Guerrero on 04-14-2023 Lymphocytes/100 WBC (Bld) 39.3 % 19-41 [facility] Blood monocytes/100 leukocyt esOrdered By: Deann Guerrero on 04-14-2023 Monocytes/100 WBC (Bld) 6.1 % 0-10 [facility] Blood platelet mean volumeOr dered By: Deann Guerrero on 04-14-2023 Platelet mean volume (Bld) [Entitic vol] 8.3 fL 6.2-12.0 [facility] Determination of erythrocyte mean corpuscular volume (MCV)Ordered By: Deann Guerrero on 04-14-2023 MCV (RBC) [Entitic vol] 87.7 fL 81-99 [facility] Direct bilirubinOrdered By: Deann Guerrero on 04-14-2023 Bilirubin.direct [Mass/Vol] 0.16 mg/dL 0.00-0.30 [facility] Hematocrit Auto (Bld) [Volum e fraction]Ordered By: Deann Guerrero on 04-14-2023 Hematocrit (Bld) [Volume fraction] 40.1 % 37-47 [facility] Laboratory - Chemistry and C hemistry - challengeOrdered By: Deann Guerrero on 04-14-2023 ALP [Catalytic activity/Vol] 111 U/L 45-117 [facility] ALT [Catalytic activity/Vol] 23 U/L 13-56 [facility] CO2 [Moles/Vol] 25.0 mmol/L 21.0-32.0 [facility] Globulin (S) [Mass/Vol] 5.0 g/dL 2.2-4.2 [facility] Lipase [Catalytic activity/Vol] 80 U/L 13-75 [facility] Comment on above: Please note:LIPASE r evised reference range effective 22. New Lipase methodology. Expected to produce lower values than the previous assay method. NEW Reference Range: 13 - 75 U/L Urea nitrogen/Creatinine [Mass ratio] 9.6 mg/mg - [facility] Laboratory - Hematology and Cell countsOrdered By: Deann Guerrero on 04-14-2023 Erythrocyte distribution width (RBC) [Entitic vol] 48.6 fL 35.1-43.9 [facility] Erythrocyte distribution width (RBC) [Ratio] 16.4 % 11.6-14.6 [facility] Immature granulocytes/100 WBC (Bld) 1.000 % 0.0-0.9 [facility] Comment on above: IG% - Immature Granu locytes (promyelocytes, myelocytes and metamyelocytes) > 1% indicates that a LEFT SHIFT is Present. MCH (RBC) [Entitic mass] 28.0 pg 27.0-32.0 [facility] Nucleated RBC/100 WBC (Bld) [Ratio] 0 % 0-5 [facility] MCHC Auto (RBC) [Mass/Vol]Or dered By: Deann Guerrero on 04-14-2023 MCHC (RBC) [Mass/Vol] 31.9 g/dL 32-36 [facility] No Panel InformationOrdered By: Deann Guerrero on 04-14-2023 Estimated Creatinine Clearance Calc 73.37 ml/min [facility] Estimated GFR (MDRD) Amer 79 mL/min >60 [facility] Comment on above: GFR Calc Estimated GFR (MDRD) Non-Af Amer 66 mL/min >60 [facility] Comment on above: Non- GFR Calc 28.0 pg 27.0-32.0 [facility] 16.4 % 11.6-14.6 [facility] 48.6 fl 35.1-43.9 [facility] 1.000 % 0.0-0.9 [facility] 0 % 0-5 [facility] 66 mL/min >60 [facility] 79 mL/min >60 [facility] 73.37 ml/min [facility] 9.6 RATIO - [facility] 5.0 g/dL 2.2-4.2 [facility] 80 U/L 13-75 [facility] 111 U/L 45-117 [facility] 23 U/L 13-56 [facility] 25.0 mmol/L 21.0-32.0 [facility] Platelets bldOrdered By: Sulema Guerrero on 04-14-2023 Platelets (Bld) [#/Vol] 565 10*3/uL 150-450 [facility] Serum or plasma albumin hussein urement (mass/volume)Ordered By: Deann Guerrero on 04-14-2023 Albumin [Mass/Vol] 3.2 g/dL 3.2-5.0 [facility] Serum or plasma calcium hussein urement (mass/volume)Ordered By: Deann Guerrero on 04-14-2023 Calcium [Mass/Vol] 9.5 mg/dL 8.5-10.1 [facility] Serum or plasma creatinine m easurement (mass/volume)Ordered By: Deann Guerrero on 04-14-2023 Creatinine [Mass/Vol] 1.04 mg/dL 0.55-1.02 [facility] Comment on above: The validity of the calculated GFR & GFRAA in patients over 70 years has not been determined. Clinical correlation is essential. Serum or plasma urea nitroge n measurement (mass/volume)Ordered By: Deann Guerrero on 04-14-2023 Urea nitrogen [Mass/Vol] 10 mg/dL 7-18 [facility] Thin prep Papanicolaou smear with manual screeningOrdered By: Deann Guerrero on 04-14-2023 Thin prep Papanicolaou smear with manual screening 13 U/L 15-37 [facility] Thin prep Papanicolaou smear with manual screening 7 5-15 [facility] Absolute lymphocyte countOrd ered By: Poli Barfield on 04-13-2023 Lymphocytes Auto (Unsp spec) [#/Vol] 3.04 10*3/uL 0.83-4.51 [facility] Basophil percentageOrdered B y: Poli Barfield on 04-13-2023 Basophil percentage 280 mg/dL 74-106 [facility] Basophil percentage 7.8 g/dL 6.4-8.2 [facility] Basophil percentage 0.60 mg/dL 0.20-1.00 [facility] Basophil percentage 132 mmol/L 136-145 [facility] Basophil percentage 4.0 mmol/L 3.5-5.1 [facility] Basophil percentage 100 mmol/L 98-107 [facility] Basophils (Bld) [#/Vol] 8.7 10*3/uL 4.4-11.0 [facility] Basophils (Bld) [#/Vol] 5.1 10*3/uL 2.0-7.7 [facility] Basophils/100 WBC (Bld) 58.8 % 47-70 [facility] Basophils/100 WBC (Bld) 0.1 % 0-5 [facility] Basophils/100 WBC (Bld) 0.6 % 0-1 [facility] Bilirubin [Mass/Vol] 0.60 mg/dL 0.20-1.00 [facility] Comment on above: For patients on eltr ombopag therapy, use of Dim[place] TBIL is not recommended. Chloride [Moles/Vol] 100 mmol/L 98-107 [facility] Eosinophils/100 WBC (Bld) 0.1 % 0-5 [facility] Glucose [Mass/Vol] 280 mg/dL 74-106 [facility] Comment on above: Glucose result great er than or equal to 200 mg/dLsuggests DIABETES MELLITUS per A.D.A. criteria. Neutrophils (Bld) [#/Vol] 5.1 10*3/uL 2.0-7.7 [facility] Neutrophils/100 WBC (Bld) 58.8 % 47-70 [facility] Potassium [Moles/Vol] 4.0 mmol/L 3.5-5.1 [facility] Protein [Mass/Vol] 7.8 g/dL 6.4-8.2 [facility] Sodium [Moles/Vol] 132 mmol/L 136-145 [facility] WBC (Bld) [#/Vol] 8.7 10*3/uL 4.4-11.0 [facility] Beta hCG serum qualOrdered B y: Poli Barfield on 04-13-2023 Beta HCG ( test) Ql Negative [facility] Blood erythrocytes count (nu mber/volume)Ordered By: Poli Barfield on 04-13-2023 RBC (Bld) [#/Vol] 4.42 10*6/uL 4.2-5.4 [facility] Blood hemoglobin measurement (mass/volume)Ordered By: Poli Barfeild on 04-13-2023 Hemoglobin (Bld) [Mass/Vol] 12.6 g/dL 12.0-15.0 [facility] Blood lymphocytes/100 leukoc ytesOrdered By: Poli Barfield on 04-13-2023 Lymphocytes/100 WBC (Bld) 35.1 % 19-41 [facility] Blood monocytes/100 leukocyt esOrdered By: Poli Barfield on 04-13-2023 Monocytes/100 WBC (Bld) 4.6 % 0-10 [facility] Blood platelet mean volumeOr dered By: Poli Barfield on 04-13-2023 Platelet mean volume (Bld) [Entitic vol] 8.3 fL 6.2-12.0 [facility] Determination of erythrocyte mean corpuscular volume (MCV)Ordered By: Poli Barfield on 04-13-2023 MCV (RBC) [Entitic vol] 87.3 fL 81-99 [facility] Hematocrit Auto (Bld) [Volum e fraction]Ordered By: Poli Barfield on 04-13-2023 Hematocrit (Bld) [Volume fraction] 38.6 % 37-47 [facility] Laboratory - Chemistry and C hemistry - challengeOrdered By: Poli Barfield on 04-13-2023 ALP [Catalytic activity/Vol] 114 U/L 45-117 [facility] ALT [Catalytic activity/Vol] 23 U/L 13-56 [facility] CO2 [Moles/Vol] 24.0 mmol/L 21.0-32.0 [facility] Globulin (S) [Mass/Vol] 4.8 g/dL 2.2-4.2 [facility] Lipase [Catalytic activity/Vol] 98 U/L 13-75 [facility] Comment on above: Please note:LIPASE r evised reference range effective 22. New Lipase methodology. Expected to produce lower values than the previous assay method. NEW Reference Range: 13 - 75 U/L Urea nitrogen/Creatinine [Mass ratio] 9.4 mg/mg 10-20 [facility] Laboratory - Hematology and Cell countsOrdered By: Poli Barfield on 04-13-2023 Erythrocyte distribution width (RBC) [Entitic vol] 47.7 fL 35.1-43.9 [facility] Erythrocyte distribution width (RBC) [Ratio] 16.6 % 11.6-14.6 [facility] Immature granulocytes/100 WBC (Bld) 0.800 % 0.0-0.9 [facility] Comment on above: IG% - Immature Granu locytes (promyelocytes, myelocytes and metamyelocytes) > 1% indicates that a LEFT SHIFT is Present. MCH (RBC) [Entitic mass] 28.5 pg 27.0-32.0 [facility] Nucleated RBC/100 WBC (Bld) [Ratio] 0 % 0-5 [facility] MCHC Auto (RBC) [Mass/Vol]Or dered By: Poli Barfield on 04-13-2023 MCHC (RBC) [Mass/Vol] 32.6 g/dL 32-36 [facility] No Panel InformationOrdered By: Poli Barfield on 04-13-2023 Estimated Creatinine Clearance Calc 59.62 ml/min [facility] Estimated GFR (MDRD) Amer 63 mL/min >60 [facility] Comment on above: GFR Calc Estimated GFR (MDRD) Non-Af Amer 52 mL/min >60 [facility] Comment on above: Non- GFR Calc 28.5 pg 27.0-32.0 [facility] 16.6 % 11.6-14.6 [facility] 47.7 fl 35.1-43.9 [facility] 0.800 % 0.0-0.9 [facility] 0 % 0-5 [facility] 52 mL/min >60 [facility] 63 mL/min >60 [facility] 59.62 ml/min [facility] 9.4 RATIO 10-20 [facility] 4.8 g/dL 2.2-4.2 [facility] 98 U/L 13-75 [facility] 114 U/L 45-117 [facility] 23 U/L 13-56 [facility] 24.0 mmol/L 21.0-32.0 [facility] Platelets bldOrdered By: Devon Barfield on 04-13-2023 Platelets (Bld) [#/Vol] 542 10*3/uL 150-450 [facility] Serum or plasma albumin hussein urement (mass/volume)Ordered By: Poli Barfield on 04-13-2023 Albumin [Mass/Vol] 3.0 g/dL 3.2-5.0 [facility] Serum or plasma albumin/glob ulin mass ratioOrdered By: Poli Barfield on 04-13-2023 Albumin/Globulin [Mass ratio] 0.6 {ratio} 0.9-2.4 [facility] Serum or plasma calcium hussein urement (mass/volume)Ordered By: Poli Barfield on 04-13-2023 Calcium [Mass/Vol] 9.5 mg/dL 8.5-10.1 [facility] Serum or plasma creatinine m easurement (mass/volume)Ordered By: Poli Barfield on 04-13-2023 Creatinine [Mass/Vol] 1.28 mg/dL 0.55-1.02 [facility] Comment on above: The validity of the calculated GFR & GFRAA in patients over 70 years has not been determined. Clinical correlation is essential. Serum or plasma urea nitroge n measurement (mass/volume)Ordered By: Poli Barfield on 04-13-2023 Urea nitrogen [Mass/Vol] 12 mg/dL 7-18 [facility] Thin prep Papanicolaou smear with manual screeningOrdered By: Poli Barfield on 04-13-2023 Thin prep Papanicolaou smear with manual screening 17 U/L 15-37 [facility] Thin prep Papanicolaou smear with manual screening 8 5-15 [facility] Absolute lymphocyte countOrd ered By: Rickey Shepard on 03-06-2023 Lymphocytes Auto (Unsp spec) [#/Vol] 3.14 10*3/uL 0.83-4.51 [facility] Basophil percentageOrdered B y: Rickey Shepard on 03-06-2023 Basophil percentage 215 mg/dL 74-106 [facility] Basophil percentage 8.4 g/dL 6.4-8.2 [facility] Basophil percentage 0.50 mg/dL 0.20-1.00 [facility] Basophil percentage 134 mmol/L 136-145 [facility] Basophil percentage 3.1 mmol/L 3.5-5.1 [facility] Basophil percentage 101 mmol/L 98-107 [facility] Basophil percentage 2.2 mmol/L 0.4-2.0 [facility] Basophils (Bld) [#/Vol] 10.9 10*3/uL 4.4-11.0 [facility] Basophils (Bld) [#/Vol] 6.9 10*3/uL 2.0-7.7 [facility] Basophils/100 WBC (Bld) 62.8 % 47-70 [facility] Basophils/100 WBC (Bld) 0.2 % 0-5 [facility] Basophils/100 WBC (Bld) 0.4 % 0-1 [facility] Bilirubin [Mass/Vol] 0.50 mg/dL 0.20-1.00 [facility] Comment on above: For patients on eltr ombopag therapy, use of [place] TBIL is not recommended. Chloride [Moles/Vol] 101 mmol/L 98-107 [facility] Eosinophils/100 WBC (Bld) 0.2 % 0-5 [facility] Glucose [Mass/Vol] 215 mg/dL 74-106 [facility] Comment on above: Glucose result great er than or equal to 200 mg/dLsuggests DIABETES MELLITUS per A.D.A. criteria. Lactate [Moles/Vol] 2.2 mmol/L 0.4-2.0 [facility] Comment on above: Critical Result(s) C alled at: 09:58:40 03/06/2023 by: Gayathri Wilhelm. Results read back by same. Neutrophils (Bld) [#/Vol] 6.9 10*3/uL 2.0-7.7 [facility] Neutrophils/100 WBC (Bld) 62.8 % 47-70 [facility] Potassium [Moles/Vol] 3.1 mmol/L 3.5-5.1 [facility] Protein [Mass/Vol] 8.4 g/dL 6.4-8.2 [facility] Sodium [Moles/Vol] 134 mmol/L 136-145 [facility] WBC (Bld) [#/Vol] 10.9 10*3/uL 4.4-11.0 [facility] Basophil percentage 0 SEEN /hpf 0-5 [facility] Bilirubin Test strip Ql (U)O rdered By: Rickey Shepard on 03-06-2023 Bilirubin Ql (U) Negative Negative [facility] Blood erythrocytes count (nu mber/volume)Ordered By: Rickey Shepard on 03-06-2023 RBC (Bld) [#/Vol] 4.33 10*6/uL 4.2-5.4 [facility] Blood hemoglobin measurement (mass/volume)Ordered By: Rickey Shepard on 03-06-2023 Hemoglobin (Bld) [Mass/Vol] 11.5 g/dL 12.0-15.0 [facility] Blood lymphocytes/100 leukoc ytesOrdered By: Rickey Shepard on 03-06-2023 Lymphocytes/100 WBC (Bld) 28.8 % 19-41 [facility] Blood monocytes/100 leukocyt esOrdered By: Rickey Shepard on 03-06-2023 Monocytes/100 WBC (Bld) 7.2 % 0-10 [facility] Blood platelet mean volumeOr dered By: Rickey Shepard on 03-06-2023 Platelet mean volume (Bld) [Entitic vol] 9.2 fL 6.2-12.0 [facility] Determination of erythrocyte mean corpuscular volume (MCV)Ordered By: Rickey Shepard on 03-06-2023 MCV (RBC) [Entitic vol] 82.7 fL 81-99 [facility] Hematocrit Auto (Bld) [Volum e fraction]Ordered By: Rickey Shepard on 03-06-2023 Hematocrit (Bld) [Volume fraction] 35.8 % 37-47 [facility] INR in Blood by Coagulation assayOrdered By: Rickey Shepard on 03-06-2023 INR Coag (Bld) [Relative time] 1.2 {INR} [facility] Ketones Test strip Ql (U)Ord ered By: Rickey Shepard on 03-06-2023 Ketones Ql (U) Negative Negative [facility] Laboratory - Chemistry and C hemistry - challengeOrdered By: Rickey Shepard on 03-06-2023 ALP [Catalytic activity/Vol] 109 U/L 45-117 [facility] ALT [Catalytic activity/Vol] 13 U/L 13-56 [facility] CO2 [Moles/Vol] 25.0 mmol/L 21.0-32.0 [facility] Globulin (S) [Mass/Vol] 5.2 g/dL 2.2-4.2 [facility] Lipase [Catalytic activity/Vol] 59 U/L 13-75 [facility] Comment on above: Please note:LIPASE r evised reference range effective 22. New Lipase methodology. Expected to produce lower values than the previous assay method. NEW Reference Range: 13 - 75 U/L Urea nitrogen/Creatinine [Mass ratio] 4.0 mg/mg 10-20 [facility] Laboratory - CoagulationOrde red By: Rickey Shepard on 03-06-2023 aPTT Coag (Bld) [Time] 28.8 s 24.1-36.2 [facility] PT Coag (PPP) [Time] 14.8 s 11.7-14.9 [facility] Laboratory - Hematology and Cell countsOrdered By: Rickey Shepard on 03-06-2023 Erythrocyte distribution width (RBC) [Entitic vol] 41.1 fL 35.1-43.9 [facility] Erythrocyte distribution width (RBC) [Ratio] 13.6 % 11.6-14.6 [facility] Immature granulocytes/100 WBC (Bld) 0.600 % 0.0-0.9 [facility] Comment on above: IG% - Immature Granu locytes (promyelocytes, myelocytes and metamyelocytes) > 1% indicates that a LEFT SHIFT is Present. MCH (RBC) [Entitic mass] 26.6 pg 27.0-32.0 [facility] Nucleated RBC/100 WBC (Bld) [Ratio] 0 % 0-5 [facility] MCHC Auto (RBC) [Mass/Vol]Or dered By: Rickey Shepard on 03-06-2023 MCHC (RBC) [Mass/Vol] 32.1 g/dL 32-36 [facility] Mucus LM Ql (Urine sed)Order ed By: Rickey Shepard on 03-06-2023 Mucus Ql (Urine sed) 0 SEEN /hpf [facility] Nitrite Test strip Ql (U)Ord ered By: Rickey Shepard on 03-06-2023 Nitrite Ql (U) Negative Negative [facility] No Panel InformationOrdered By: Rickey Shepard on 03-06-2023 Estimated Creatinine Clearance Calc 75.55 ml/min [facility] Estimated GFR (MDRD) Amer 82 mL/min >60 [facility] Comment on above: GFR Calc Estimated GFR (MDRD) Non-Af Amer 68 mL/min >60 [facility] Comment on above: Non- GFR Calc 26.6 pg 27.0-32.0 [facility] 13.6 % 11.6-14.6 [facility] 41.1 fl 35.1-43.9 [facility] 0.600 % 0.0-0.9 [facility] 0 % 0-5 [facility] 14.8 SECONDS 11.7-14.9 [facility] 28.8 Seconds 24.1-36.2 [facility] 68 mL/min >60 [facility] 82 mL/min >60 [facility] 75.55 ml/min [facility] 4.0 RATIO 10-20 [facility] 5.2 g/dL 2.2-4.2 [facility] 59 U/L 13-75 [facility] 109 U/L 45-117 [facility] 13 U/L 13-56 [facility] 25.0 mmol/L 21.0-32.0 [facility] Platelets bldOrdered By: Ivy Shepard on 03-06-2023 Platelets (Bld) [#/Vol] 412 10*3/uL 150-450 [facility] Protein Test strip Ql (U)Ord ered By: Rickey Shepard on 03-06-2023 Protein Ql (U) 30 mg/dl Negative [facility] Serum or plasma acetone hussein urement (mass/volume)Ordered By: Rickey Shepard on 03-06-2023 Acetone [Mass/Vol] Negative NEG [facility] Serum or plasma albumin hussein urement (mass/volume)Ordered By: Rickey Shepard on 03-06-2023 Albumin [Mass/Vol] 3.2 g/dL 3.2-5.0 [facility] Serum or plasma albumin/glob ulin mass ratioOrdered By: Rickey Shepard on 03-06-2023 Albumin/Globulin [Mass ratio] 0.6 {ratio} 0.9-2.4 [facility] Serum or plasma calcium hussein urement (mass/volume)Ordered By: Rickey Shepard on 03-06-2023 Calcium [Mass/Vol] 9.3 mg/dL 8.5-10.1 [facility] Serum or plasma creatinine m easurement (mass/volume)Ordered By: Rickey Shepard on 03-06-2023 Creatinine [Mass/Vol] 1.01 mg/dL 0.55-1.02 [facility] Comment on above: The validity of the calculated GFR & GFRAA in patients over 70 years has not been determined. Clinical correlation is essential. Serum or plasma urea nitroge n measurement (mass/volume)Ordered By: Rickey Shepard on 03-06-2023 Urea nitrogen [Mass/Vol] 4 mg/dL 7-18 [facility] Squamous epithelial cells de tection in urine sediment by light microscopyOrdered By: Rickey Shepard on 03-06-2023 Epithelial cells.squamous LM Ql (Urine sed) 0-5 SEEN /hpf 5-10 [facility] Thin prep Papanicolaou smear with manual screeningOrdered By: Rickey Shepard on 03-06-2023 Thin prep Papanicolaou smear with manual screening 7 U/L 15-37 [facility] Thin prep Papanicolaou smear with manual screening 8 5-15 [facility] Urine blood detectionOrdered By: Rickey Shepard on 03-06-2023 RBC Ql (U) 10 /ul Negative [facility] RBC Ql (U) 0 SEEN /hpf 0-5 [facility] Urine clarityOrdered By: Ivy Shepard on 03-06-2023 Clarity (U) Clear Clear [facility] Urine color determinationOrd ered By: Rickey Shepard on 03-06-2023 Color (U) Yellow Yellow [facility] Urine glucose detectionOrder ed By: Rickey Shepard on 03-06-2023 Glucose Ql (U) 100 mg/dl Normal [facility] Urine leukocyte esterase det ection by dipstickOrdered By: Rickey Shepard on 03-06-2023 Leukocyte esterase Test strip Ql (U) 25 /ul Negative [facility] Urine pHOrdered By: Rickey webb on 03-06-2023 pH (U) 7.0 [pH] 5.0 - 8.0 [facility] Urine sediment bacteria coun t by microscopy (number/high power field)Ordered By: Rickey Shepard on 03-06-2023 Bacteria LM.HPF (Urine sed) [#/Area] RARE /hpf None Seen [facility] Urine specific gravity measu rementOrdered By: Rickey Shepard on 03-06-2023 Specific gravity (U) [Rel density] 1.010 1.002-1.030 [facility] Urobilinogen Auto test strip Ql (U)Ordered By: Rickey Shepard on 03-06-2023 Urobilinogen Ql (U) Normal mg/dl Normal [facility] Basic metabolic 2000 panelon 03-04-2023 Anion gap [Moles/Vol] 14 mmol/L Normal 9-18 [facility] Comment on above: Order Comment: Speci men Type: BLOOD SPECIMENOrdering Facility: [facility] Address: [address] [address] Performed By: #### 2 4321-2 ####[facility] LABORATORYCLIA [id number] [place] [address] [place] Calcium [Mass/Vol] 8.9 mg/dL Normal 8.5-10.2 [facility] Comment on above: Order Comment: Speci men Type: BLOOD SPECIMENOrdering Facility: [facility] Address: [address] [place] [address] Performed By: #### 2 4321-2 ####[facility] LABORATORYCLIA [id number] [place] [address] [place] Chloride [Moles/Vol] 102 mmol/L Normal 97-105 [facility] Comment on above: Order Comment: Speci men Type: BLOOD SPECIMENOrdering Facility: [facility] Address: [address] [address] Performed By: #### 2 4321-2 ####[facility] LABORATORYCLIA [id number] [place] [address] [place] CO2 [Moles/Vol] 21 mmol/L Low 22-30 [facility] Comment on above: Order Comment: Mahogany vargas Type: BLOOD SPECIMENOrdering Facility: [facility] Address: [address] [address] Performed By: #### 2 4321-2 ####[facility] LABORATORYCLIA [id number] [place] [address] [place] Creatinine [Mass/Vol] 0.78 mg/dL Normal 0.58-0.96 [facility] Comment on above: Order Comment: Mahogany men Type: BLOOD SPECIMENOrdering Facility: [facility] Address: [address] [address] Performed By: #### 2 4321-2 ####[facility] LABORATORYCLIA [id number] [place] [address] [place] Creatinine and Glomerular filtration rate.predicted panel (S/P/Bld) 104 mL/min/1.73m??? Normal >=60 [facility] Comment on above: Order Comment: Mahogany vargas Type: BLOOD SPECIMENOrdering Facility: [facility] Address: [address] [place] [address] Result Comment: Samreen mated Glomerular Filtration Rate [...] actual GFR. Performed By: #### 2 4321-2 ####[facility] LABORATORYCLIA [id number] [place] [address] [place] Glucose [Mass/Vol] 158 mg/dL High 74-99 [facility] Comment on above: Order Comment: Mahogany vargas Type: BLOOD SPECIMENOrdering Facility: [facility] Address: [address] [address] Result Comment: The [place] Diabetes Association (ADA) provides guidance for cutoff [...] Standards of Medical Care in Diabetes 2016, [place] Diabetes Association. Diabetes Care. 2016.39(Suppl 1). Performed By: #### 2 4321-2 ####[facility] LABORATORYCLIA [id number] [place] [address] [place] Potassium [Moles/Vol] 3.3 mmol/L Low 3.7-5.1 [facility] Comment on above: Order Comment: Timuri alicia Type: BLOOD SPECIMENOrdering Facility: [facility] Address: [address] [address] Performed By: #### 2 4321-2 ####[facility] LABORATORYCLIA [id number] [place] [address] [place] Sodium [Moles/Vol] 137 mmol/L Normal 136-144 [facility] Comment on above: Order Comment: Mahogany vargas Type: BLOOD SPECIMENOrdering Facility: [facility] Address: [address] [address] Performed By: #### 2 4321-2 ####[facility] LABORATORYCLIA [id number] [place] [address] [place] Urea nitrogen [Mass/Vol] 4 mg/dL Low 7-21 [facility] Comment on above: Order Comment: Mahogany vargas Type: BLOOD SPECIMENOrdering Facility: [facility] Address: [address] [address] Performed By: #### 2 4321-2 ####[facility] LABORATORYCLIA [id number] [place] [address] [place] CBC panel Auto (Bld)on 03-04 Erythrocyte distribution width (RBC) [Ratio] 13.5 % Normal 11.5-15.0 [facility] Comment on above: Order Comment: Speci men Type: BLOOD SPECIMENOrdering Facility: [facility] Address: [address] [place] [address] Performed By: #### 5 8410-2 ####[facility] LABORATORYCLIA [id number] [place] [address] [place] Hematocrit (Bld) [Volume fraction] 34.2 % Low 36.0-46.0 [facility] Comment on above: Order Comment: Speci men Type: BLOOD SPECIMENOrdering Facility: [facility] Address: [address] [place] [address] Performed By: #### 5 8410-2 ####[facility] LABORATORYCLIA [id number] [place] [address] [place] Hemoglobin (Bld) [Mass/Vol] 11.5 g/dL Normal 11.5-15.5 [facility] Comment on above: Order Comment: Speci men Type: BLOOD SPECIMENOrdering Facility: [facility] Address: [address] [place] [address] Performed By: #### 5 8410-2 ####[facility] LABORATORYCLIA [id number] [place] [address] [place] MCH (RBC) [Entitic mass] 27.4 pg Normal 26.0-34.0 [facility] Comment on above: Order Comment: Speci men Type: BLOOD SPECIMENOrdering Facility: [facility] Address: [address] [place] [address] Performed By: #### 5 8410-2 ####[facility] LABORATORYCLIA [id number] [place] [address] [place] MCHC (RBC) [Mass/Vol] 33.6 g/dL Normal 30.5-36.0 [facility] Comment on above: Order Comment: Speci men Type: BLOOD SPECIMENOrdering Facility: [facility] Address: [address] [place] [address] Performed By: #### 5 8410-2 ####[facility] LABORATORYCLIA [id number] [place] [address] [place] MCV (RBC) [Entitic vol] 81.6 fL Normal 80.0-100.0 [facility] Comment on above: Order Comment: Speci men Type: BLOOD SPECIMENOrdering Facility: [facility] Address: [address] [place] [address] Performed By: #### 5 8410-2 ####[facility] LABORATORYCLIA [id number] [place] [address] [place] Nucleated RBC (Bld) [#/Vol] 10*3/uL Normal <0.01 [facility] Comment on above: Order Comment: Speci men Type: BLOOD SPECIMENOrdering Facility: [facility] Address: [address] [place] [address] Performed By: #### 5 8410-2 ####[facility] LABORATORYCLIA [id number] [place] [address] [place] Platelet mean volume (Bld) [Entitic vol] 9.3 fL Normal 9.0-12.7 [facility] Comment on above: Order Comment: Speci men Type: BLOOD SPECIMENOrdering Facility: [facility] Address: [address] [place] [address] Performed By: #### 5 8410-2 ####[facility] LABORATORYCLIA [id number] [place] [address] [place] Platelets (Bld) [#/Vol] 362 10*3/uL Normal 150-400 [facility] Comment on above: Order Comment: Speci men Type: BLOOD SPECIMENOrdering Facility: [facility] Address: [address] [place] [address] Performed By: #### 5 8410-2 ####[facility] LABORATORYCLIA [id number] [place] [address] [place] RBC (Bld) [#/Vol] 4.19 10*6/uL Normal 3.90-5.20 [facility] Comment on above: Order Comment: Speci men Type: BLOOD SPECIMENOrdering Facility: [facility] Address: [address] [id number] Performed By: #### 5 8410-2 ####[facility] LABORATORYCLIA [id number] [place] [id number] [facility] WBC (Bld) [#/Vol] 10.19 10*3/uL Normal 3.70-11.00 [facility] Comment on above: Order Comment: Speci men Type: BLOOD SPECIMENOrdering Facility: [facility] Address: [place] [address] Performed By: #### 5 8410-2 ####[facility] LABORATORYCLIA [id number] [place] [id number] [facility] CNDSon 03-04-2023 CNDS HNO ID: [id number] Author: Kelley Lopez MD Service: ? Author [...] office evaluation. She was not evaluated by supply chain design manager. Vomiting too frequent to count and constant [...] was prescribed stool softeners and laxatives during [facility] stay however she refuses to take [...] Plan to discharge in AM. Discussed with social services director/correctional case records supervisor. Advance diet. PLAN 03/04/23: Hemodynamically is stable. Has been walking a lot. Gets anxious. Seen by psych and GI. Discussed with social services director/correctional case records supervisor. OK to discharge the patient. Rest of management as outpatient. I personally spent more than 30 minutes for discharge of this patient. Discussed with unit PA/PUBLIC TRANSPORTATION INSPECTOR about care plans. Recommended to see her psychiatrist as outpatient. Has had high BP readings. Will add Losartan. Is diabetic too.. Vitals and labs were closely monitored and evaluated while hospitalized. Electrolytes were replaced as needed. Patient is stable for discharge home today. Patient should follow up with primary care physician (Amy Solorzano: [phone]) in 7-10 days for hospital follow up. Attending physician to follow up with full discharge summary. OTHER PROBLEMS/DIAGNOSIS: Principal Problem: Intractable nausea and vomiting Active Problems: DM2 (diabetes mellitus, type 2) ([facility]) HLD (hyperlipidemia) Obesity, Class I, BMI 30-34.9 Abdominal pain Constipation Anxiety and depression Borderline personality disorder ([facility]) Resolved Problems: * No resolved hospital problems. * OPERATIONS PERFORMED WHILE IN THE HOSPITAL: None IMPORTANT TEST/PROCEDURES: CT Scan EKG Xray, Gastric Emptying Study TEST RESULTS NOT AVAILABLE AT THIS TIME: No pending results Discharge Disposition Home/Self Care A (more content not included)... [facility] NURSING PROGon 03-04-2023 NURSING PROG HNO ID: [id number] Author: Shiloh Carl RN Service: Nursing Author [...] given. Pt left stable. Due care given. [facility] NURSING PROG HNO ID: [id number] Author: Hilda Dunlap RN Service: ? Author Type: Registered Nurse Type: Nursing Progress Note Filed: 03/04/2023 3:31 PM Note Text: 0725: Assumed patient care at this time. Safety maintained. 1600: Discharge instructions completed at this time. IV removed. Safety maintained. Belongings with patient. Patient has no needs at this time. [facility] Basic metabolic 2000 panelon 03-03-2023 Anion gap [Moles/Vol] 12 mmol/L Normal 9-18 [facility] Comment on above: Order Comment: Speci men Type: BLOOD SPECIMENOrdering Facility: [facility] Address: [address] [place] [address] Performed By: #### 2 4321-2 ####[facility] LABORATORYCLIA [id number] [place] [address] [place] Calcium [Mass/Vol] 9.3 mg/dL Normal 8.5-10.2 [facility] Comment on above: Order Comment: Speci men Type: BLOOD SPECIMENOrdering Facility: [facility] Address: [address] [place] [address] Performed By: #### 2 4321-2 ####[facility] LABORATORYCLIA [id number] [place] [address] [place] Chloride [Moles/Vol] 103 mmol/L Normal 97-105 [facility] Comment on above: Order Comment: Speci men Type: BLOOD SPECIMENOrdering Facility: [facility] Address: [address] [place] [address] Performed By: #### 2 4321-2 ####[facility] LABORATORYCLIA [id number] [place] [address] [place] CO2 [Moles/Vol] 24 mmol/L Normal 22-30 [facility] Comment on above: Order Comment: Speci men Type: BLOOD SPECIMENOrdering Facility: [facility] Address: [address] [place] [address] Performed By: #### 2 4321-2 ####[facility] LABORATORYCLIA [id number] [place] [address] [place] Creatinine [Mass/Vol] 0.87 mg/dL Normal 0.58-0.96 [facility] Comment on above: Order Comment: Speci men Type: BLOOD SPECIMENOrdering Facility: [facility] Address: [address] [place] [address] Performed By: #### 2 4321-2 ####[facility] LABORATORYCLIA [id number] [place] [address] [place] Creatinine and Glomerular filtration rate.predicted panel (S/P/Bld) 91 mL/min/1.73m??? Normal >=60 [facility] Comment on above: Order Comment: Mahogany vargas Type: BLOOD SPECIMENOrdering Facility: [facility] Address: [address] [place] [address] Result Comment: Samreen mated Glomerular Filtration Rate [...] actual GFR. Performed By: #### 2 4321-2 ####[facility] LABORATORYCLIA [id number] [place] [address] [place] Glucose [Mass/Vol] 137 mg/dL High 74-99 [facility] Comment on above: Order Comment: Mahogany vargas Type: BLOOD SPECIMENOrdering Facility: [facility] Address: [address] [place] [address] Result Comment: The [place] Diabetes Association (ADA) provides guidance for cutoff [...] Standards of Medical Care in Diabetes 2016, [place] Diabetes Association. Diabetes Care. 2016.39(Suppl 1). Performed By: #### 2 4321-2 ####[facility] LABORATORYCLIA [id number] [place] [id number] [place] Potassium [Moles/Vol] 3.5 mmol/L Low 3.7-5.1 [facility] Comment on above: Order Comment: Speci men Type: BLOOD SPECIMENOrdering Facility: [facility] Address: [address] [address] Performed By: #### 2 4321-2 ####[facility] LABORATORYCLIA [id number] [place] [address] [place] Sodium [Moles/Vol] 139 mmol/L Normal 136-144 [facility] Comment on above: Order Comment: Speci men Type: BLOOD SPECIMENOrdering Facility: [facility] Address: [address] [place] [address] Performed By: #### 2 4321-2 ####[facility] LABORATORYCLIA [id number] [place] [address] [place] Urea nitrogen [Mass/Vol] 6 mg/dL Low 7-21 [facility] Comment on above: Order Comment: Speci men Type: BLOOD SPECIMENOrdering Facility: [facility] Address: [address] [address] Performed By: #### 2 4321-2 ####[facility] LABORATORYCLIA [id number] [place] [address] [place] CBC panel Auto (Bld)on 03-03 Erythrocyte distribution width (RBC) [Ratio] 13.2 % Normal 11.5-15.0 [facility] Comment on above: Order Comment: Speci men Type: BLOOD SPECIMENOrdering Facility: [facility] Address: [address] [address] Performed By: #### 5 8410-2 ####[facility] LABORATORYCLIA [id number] [place] [address] [place] Hematocrit (Bld) [Volume fraction] 36.1 % Normal 36.0-46.0 [facility] Comment on above: Order Comment: Speci men Type: BLOOD SPECIMENOrdering Facility: [facility] Address: [address] [place] [address] Performed By: #### 5 8410-2 ####[facility] LABORATORYCLIA [id number] [place] [address] [place] Hemoglobin (Bld) [Mass/Vol] 12.2 g/dL Normal 11.5-15.5 [facility] Comment on above: Order Comment: Speci men Type: BLOOD SPECIMENOrdering Facility: [facility] Address: [address] [place] [address] Performed By: #### 5 8410-2 ####[facility] LABORATORYCLIA [id number] [place] [address] [place] MCH (RBC) [Entitic mass] 27.4 pg Normal 26.0-34.0 [facility] Comment on above: Order Comment: Speci men Type: BLOOD SPECIMENOrdering Facility: [facility] Address: [address] [place] [address] Performed By: #### 5 8410-2 ####[facility] LABORATORYCLIA [id number] [address] [place] MCHC (RBC) [Mass/Vol] 33.8 g/dL Normal 30.5-36.0 [facility] Comment on above: Order Comment: Speci men Type: BLOOD SPECIMENOrdering Facility: [facility] Address: [address] [place] [address] Performed By: #### 5 8410-2 ####[facility] LABORATORYCLIA [id number] [place] [address] [place] MCV (RBC) [Entitic vol] 81.1 fL Normal 80.0-100.0 [facility] Comment on above: Order Comment: Speci men Type: BLOOD SPECIMENOrdering Facility: [facility] Address: [address] [place] [address] Performed By: #### 5 8410-2 ####[facility] LABORATORYCLIA [id number] [place] [address] [place] Nucleated RBC (Bld) [#/Vol] 10*3/uL Normal <0.01 [facility] Comment on above: Order Comment: Speci men Type: BLOOD SPECIMENOrdering Facility: [facility] Address: [address] [place] [address] Performed By: #### 5 8410-2 ####[facility] LABORATORYCLIA [id number] [place] [address] [place] Platelet mean volume (Bld) [Entitic vol] 9.0 fL Normal 9.0-12.7 [facility] Comment on above: Order Comment: Speci men Type: BLOOD SPECIMENOrdering Facility: [facility] Address: [address] [place] [address] Performed By: #### 5 8410-2 ####[facility] LABORATORYCLIA [id number] [place] [address] [place] Platelets (Bld) [#/Vol] 397 10*3/uL Normal 150-400 [facility] Comment on above: Order Comment: Speci men Type: BLOOD SPECIMENOrdering Facility: [facility] Address: [address] [place] [address] Performed By: #### 5 8410-2 ####[facility] LABORATORYCLIA [id number] [place] [address] [place] RBC (Bld) [#/Vol] 4.45 10*6/uL Normal 3.90-5.20 [facility] Comment on above: Order Comment: Speci men Type: BLOOD SPECIMENOrdering Facility: [facility] Address: [address] [place] [address] Performed By: #### 5 8410-2 ####[facility] LABORATORYCLIA [id number] [place] [id number] [place] WBC (Bld) [#/Vol] 13.15 10*3/uL High 3.70-11.00 [facility] Comment on above: Order Comment: Speci men Type: BLOOD SPECIMENOrdering Facility: [facility] Address: [address] [place] [address] Performed By: #### 5 8410-2 ####[facility] [id number] [address] [place] CONSULTon 03-03-2023 CONSULT HNO ID: [id number] Author: Cayetano Tai MD Service: Psychiatry Author Type: Physician [...] admitted with intractable vomiting. She is from [place], [place] and was in [place] for a GI appointment and was sent [...] March 03, 2023 TIME: 3:03 PM Normal [facility] CT ABD/PEL W IVCONon 023 CT ABD/PEL W IVCON * * *Final Report* * * DATE OF EXAM: Mar 03 2023 11:01AM [facility] [id number] - CT ABD/PEL W IVCON / [...] on Mar 03 2023 11:11AM EST [id number] [facility] NURSING PROGon 03-03-2023 NURSING PROG HNO ID: [id number] Author: Anayeli Blue RN Service: PICC Team [...] 03, 2023 TIME: 10:46 AM PAGER/CONTACT #: [phone] [facility] NURSING PROG HNO ID: [id number] Author: Hilda Dunlap RN Service: ? Author [...] GI to come assess patient at bedside. [facility] ALLIED HEALTHon 03-02-2023 ALLIED HEALTH HNO ID: [id number] Author: Omari Juan RT(R) Service: Radiology Author [...] RT Marleni(R) March 02, 2023 5:12 PM [facility] Basic metabolic 2000 panelon 03-02-2023 Anion gap [Moles/Vol] 12 mmol/L Normal 9-18 [facility] Comment on above: Order Comment: Speci men Type: BLOOD SPECIMENOrdering Facility: [facility] Address: [address] [place] [id number] Performed By: #### 2 4321-2 ####[facility] LABORATORYCLIA [id number] [place] [address] [place] Calcium [Mass/Vol] 8.9 mg/dL Normal 8.5-10.2 [facility] Comment on above: Order Comment: Speci men Type: BLOOD SPECIMENOrdering Facility: [facility] Address: [address] [address] Performed By: #### 2 4321-2 ####[facility] LABORATORYCLIA [id number] [place] [address] [place] Chloride [Moles/Vol] 102 mmol/L Normal 97-105 [facility] Comment on above: Order Comment: Speci men Type: BLOOD SPECIMENOrdering Facility: [facility] Address: [address] [address] Performed By: #### 2 4321-2 ####[facility] LABORATORYCLIA [id number] [place] [address] [place] CO2 [Moles/Vol] 26 mmol/L Normal 22-30 [facility] Comment on above: Order Comment: Speci men Type: BLOOD SPECIMENOrdering Facility: [facility] Address: [address] [place] [address] Performed By: #### 2 4321-2 ####[facility] LABORATORYCLIA [id number] [place] [address] [place] Creatinine [Mass/Vol] 0.92 mg/dL Normal 0.58-0.96 [facility] Comment on above: Order Comment: Speci men Type: BLOOD SPECIMENOrdering Facility: [facility] Address: [address] [place] [address] Performed By: #### 2 4321-2 ####[facility] LABORATORYCLIA [id number] [place] [address] [place] Creatinine and Glomerular filtration rate.predicted panel (S/P/Bld) 86 mL/min/1.73m??? Normal >=60 [facility] Comment on above: Order Comment: Speci men Type: BLOOD SPECIMENOrdering Facility: [facility] Address: [address] [place] [address] Result Comment: Samreen mated Glomerular Filtration Rate [...] actual GFR. Performed By: #### 2 4321-2 ####[facility] LABORATORYCLIA [id number] [place] [address] [place] Glucose [Mass/Vol] 162 mg/dL High 74-99 [facility] Comment on above: Order Comment: Mahogany vargas Type: BLOOD SPECIMENOrdering Facility: [facility] Address: [address] [place] [address] Result Comment: The [place] Diabetes Association (ADA) provides guidance for cutoff [...] Standards of Medical Care in Diabetes 2016, [place] Diabetes Association. Diabetes Care. 2016.39(Suppl 1). Performed By: #### 2 4321-2 ####[facility] LABORATORYCLIA [id number] [place] [id number] [place] Potassium [Moles/Vol] 3.7 mmol/L Normal 3.7-5.1 [facility] Comment on above: Order Comment: Mahogany vargas Type: BLOOD SPECIMENOrdering Facility: [facility] Address: [address] [id number] Performed By: #### 2 4321-2 ####[facility] LABORATORYCLIA [id number] [place] [address] [place] Sodium [Moles/Vol] 140 mmol/L Normal 136-144 [facility] Comment on above: Order Comment: Speci men Type: BLOOD SPECIMENOrdering Facility: [facility] Address: [address] [place] [address] Performed By: #### 2 4321-2 ####[facility] LABORATORYCLIA [id number] [place] [address] [place] Urea nitrogen [Mass/Vol] 8 mg/dL Normal 7-21 [facility] Comment on above: Order Comment: Speci men Type: BLOOD SPECIMENOrdering Facility: [facility] Address: [address] [address] Performed By: #### 2 4321-2 ####[facility] LABORATORYCLIA [id number] [place] [address] [place] CBC panel Auto (Bld)on 03-02 Erythrocyte distribution width (RBC) [Ratio] 13.4 % Normal 11.5-15.0 [facility] Comment on above: Order Comment: Speci men Type: BLOOD SPECIMENOrdering Facility: [facility] Address: [address] [address] Performed By: #### 5 8410-2 ####[facility] LABORATORYCLIA [id number] [place] [address] [place] Hematocrit (Bld) [Volume fraction] 34.1 % Low 36.0-46.0 [facility] Comment on above: Order Comment: Speci men Type: BLOOD SPECIMENOrdering Facility: [facility] Address: [address] [place] [address] Performed By: #### 5 8410-2 ####[facility] LABORATORYCLIA [id number] [place] [address] [place] Hemoglobin (Bld) [Mass/Vol] 11.3 g/dL Low 11.5-15.5 [facility] Comment on above: Order Comment: Speci men Type: BLOOD SPECIMENOrdering Facility: [facility] Address: [address] [address] Performed By: #### 5 8410-2 ####[facility] LABORATORYCLIA [id number] [address] [place] MCH (RBC) [Entitic mass] 27.2 pg Normal 26.0-34.0 [facility] Comment on above: Order Comment: Speci men Type: BLOOD SPECIMENOrdering Facility: [facility] [facility] Address: [address] [place] [address] Performed By: #### 5 8410-2 ####[facility] LABORATORYCLIA [id number] [address] [place] MCHC (RBC) [Mass/Vol] 33.1 g/dL Normal 30.5-36.0 [facility] Comment on above: Order Comment: Speci men Type: BLOOD SPECIMENOrdering Facility: [facility] Address: [address] [place] [address] Performed By: #### 5 8410-2 ####[facility] LABORATORYCLIA [id number] [address] MCV (RBC) [Entitic vol] 82.2 fL Normal 80.0-100.0 [facility] Comment on above: Order Comment: Speci men Type: BLOOD SPECIMENOrdering Facility: [facility] Address: [address] [place] [address] Performed By: #### 5 8410-2 ####[facility] LABORATORYCLIA [id number] [place] [address] [place] Nucleated RBC (Bld) [#/Vol] 10*3/uL Normal <0.01 [facility] Comment on above: Order Comment: Speci men Type: BLOOD SPECIMENOrdering Facility: [facility] Address: [address] [place] [address] Performed By: #### 5 8410-2 ####[facility] LABORATORYCLIA [id number] [address] [place] Platelet mean volume (Bld) [Entitic vol] 9.4 fL Normal 9.0-12.7 [facility] Comment on above: Order Comment: Speci men Type: BLOOD SPECIMENOrdering Facility: [facility] Address: [address] [place] [address] Performed By: #### 5 8410-2 ####[facility] LABORATORYCLIA [id number] [place] [id number] [place] [facility] [place] Platelets (Bld) [#/Vol] 374 10*3/uL Normal 150-400 [facility] Comment on above: Order Comment: Speci men Type: BLOOD SPECIMENOrdering Facility: [facility] Address: [address] [place] [address] Performed By: #### 5 8410-2 ####[facility] LABORATORYCLIA [id number] [place] [address] [place] [facility] RBC (Bld) [#/Vol] 4.15 10*6/uL Normal 3.90-5.20 [facility] Comment on above: Order Comment: Speci men Type: BLOOD SPECIMENOrdering Facility: [facility] Address: [address] [place] [address] Performed By: #### 5 8410-2 ####[facility] LABORATORYCLIA [id number] [address] [place] WBC (Bld) [#/Vol] 9.29 10*3/uL Normal 3.70-11.00 [facility] Comment on above: Order Comment: Speci men Type: BLOOD SPECIMENOrdering Facility: [facility] Address: [address] [place] [address] Performed By: #### 5 8410-2 ####[facility] LABORATORYCLIA [id number] [place] [id number] [facility] Neha 03-02-2023 HELGA Telephone (GARRY) GHISLAINE GIVENS ([id number]) 1990 F [place] Date Time Provider Department [...] Visit Diagnosis:Nausea [R11.0] Order(s):NM GASTRIC EMPTYING SOLID [[id number]] Order #: [id number] FUTURE Prescriptions as of 01/31/2024 - acetaminophen [...] type 2) (HCC) [E11.9] 03/16/2013 Elevated BP [EJU6569] 04/28/2013 11/27/2013 HLD (hyperlipidemia) [E78.5] 11/27/2013 Tobacco use disorder [F17.200] 11/27/2013 Obesity, Class I, BMI 30-34.9 [E66.9] 02/18/2023 Intractable nausea and vomiting [R11.2] 02/18/2023 Severe protein-calorie malnutrition (HCC) [E43] 02/19/2023 Abdominal pain [R10.9] 03/01/2023 Constipation [K59.00] 03/02/2023 Anxiety and depression [F41.9, F32.A] 03/02/2023 Borderline personality disorder (HCC) [F60.3] 03/02/2023 Encounter Status:Closed by ALMITA KELLY on 01/31/24 [facility] CONSULTon 03-02-2023 CONSULT HNO ID: [id number] Author: Gen Bradford MD Service: Gastroenterology Author Type: Physician Type: Consults Filed: 03/02/2023 5:20 PM Note Text: [facility] STAFF PHYSICIAN NOTE OF PERSONAL [...] 02, 2023 Patient: Ghislaine Givens Medical Record: [id number] Reason for Consult: Abdominal pain, vomiting Requesting [...] mild gastritis and an esophageal ulcer at [facility]. She was escorted down from Dr. [...] as directed. Patient (more content not included)... [facility] HISTORY PHYSICALon HISTORY PHYSICAL HNO ID: [id number] Author: Kelley Lopez MD Service: ? Author [...] outpatient. 4. DM2 (diabetes mellitus, type 2) ([facility]) POA: Yes Monitor blood sugars closely. Use [...] office evaluation. She was not evaluated by supply chain design manager. Vomiting too frequent to count and constant [...] was prescribed stool softeners and laxatives during [facility] stay however she refuses to take them because she feels they worsen abdominal pain. She was also prescribed narcotic pain medication for home which she states she has been taking. PAST MEDICAL HISTORY: PAST MEDICAL HISTORY Diagnosis Date Bipolar 1 disorder ([facility]) 2007 Depression Diabetes mellitus ([facility]) Elevated BP 04/28/2013 Insomnia PAST SURGICAL HISTORY: [...] daily bef (more content not included)... Normal [facility] XR ABDOMEN 1V SUPINEon [...] Mar 02 2023 5:24PM EST [id number] Normal [facility] CBC W Auto Differential pane l (Bld)on 03-01-2023 Basophils (Bld) [#/Vol] 0.04 10*3/uL Normal <0.11 [facility] Comment on above: Order Comment: Speci men Type: BLOOD SPECIMENOrdering Facility: [facility] Address: [address] [place] [address] Performed By: #### 5 7021-8 ####[facility] LABORATORYCLIA [id number] [place] [address] [place] Basophils/100 WBC (Bld) 0.3 % Normal [facility] Comment on above: Order Comment: Speci men Type: BLOOD SPECIMENOrdering Facility: [facility] Address: [address] [place] [address] Performed By: #### 5 7021-8 ####[facility] LABORATORYCLIA [id number] [place] [address] [place] Differential cell count method Nom (Bld) Auto Normal [facility] Comment on above: Order Comment: Speci men Type: BLOOD SPECIMENOrdering Facility: [facility] Address: [address] [place] [address] Performed By: #### 5 7021-8 ####[facility] LABORATORYCLIA [id number] [place] [address] [place] Eosinophils (Bld) [#/Vol] 0.03 10*3/uL Normal <0.46 [facility] Comment on above: Order Comment: Speci men Type: BLOOD SPECIMENOrdering Facility: [facility] Address: [address] [place] [address] Performed By: #### 5 7021-8 ####[facility] LABORATORYCLIA [id number] [place] [address] [place] Eosinophils/100 WBC (Bld) 0.2 % Normal [facility] Comment on above: Order Comment: Speci men Type: BLOOD SPECIMENOrdering Facility: [facility] Address: [address] [place] [address] Performed By: #### 5 7021-8 ####[facility] LABORATORYCLIA [id number] [place] [address] [place] Erythrocyte distribution width (RBC) [Ratio] 13.6 % Normal 11.5-15.0 [facility] Comment on above: Order Comment: Speci men Type: BLOOD SPECIMENOrdering Facility: [facility] Address: [address] [place] [address] Performed By: #### 5 7021-8 ####[facility] LABORATORYCLIA [id number] [place] [address] [place] Hematocrit (Bld) [Volume fraction] 41.4 % Normal 36.0-46.0 [facility] Comment on above: Order Comment: Speci men Type: BLOOD SPECIMENOrdering Facility: [facility] Address: [address] [place] [address] Performed By: #### 5 7021-8 ####[facility] LABORATORYCLIA [id number] [place] [address] [place] Hemoglobin (Bld) [Mass/Vol] 13.6 g/dL Normal 11.5-15.5 [facility] Comment on above: Order Comment: Speci men Type: BLOOD SPECIMENOrdering Facility: [facility] Address: [address] [place] [address] Performed By: #### 5 7021-8 ####[facility] LABORATORYCLIA [id number] [place] [address] [place] Immature granulocytes (Bld) [#/Vol] 0.08 10*3/uL Normal <0.10 [facility] Comment on above: Order Comment: Speci men Type: BLOOD SPECIMENOrdering Facility: [facility] Address: [address] [place] [address] Performed By: #### 5 7021-8 ####[facility] LABORATORYCLIA [id number] [place] [address] [place] Immature granulocytes/100 WBC (Bld) 0.6 % Normal [facility] Comment on above: Order Comment: Speci men Type: BLOOD SPECIMENOrdering Facility: [facility] Address: [address] [place] [address] Performed By: #### 5 7021-8 ####[facility] LABORATORYCLIA [id number] [place] [address] [place] Lymphocytes (Bld) [#/Vol] 3.86 10*3/uL Normal 1.00-4.00 [facility] Comment on above: Order Comment: Speci men Type: BLOOD SPECIMENOrdering Facility: [facility] Address: [address] [place] [address] Performed By: #### 5 7021-8 ####[facility] LABORATORYCLIA [id number] [address] [place] Lymphocytes/100 WBC (Bld) 28.3 % Normal [facility] Comment on above: Order Comment: Speci men Type: BLOOD SPECIMENOrdering Facility: [facility] Address: [address] [place] [address] Performed By: #### 5 7021-8 ####[facility] LABORATORYCLIA [id number] [place] [address] [place] MCH (RBC) [Entitic mass] 26.8 pg Normal 26.0-34.0 [facility] Comment on above: Order Comment: Speci men Type: BLOOD SPECIMENOrdering Facility: [facility] Address: [address] [place] [address] Performed By: #### 5 7021-8 ####[facility] LABORATORYCLIA [id number] [place] [address] [place] MCHC (RBC) [Mass/Vol] 32.9 g/dL Normal 30.5-36.0 [facility] Comment on above: Order Comment: Speci men Type: BLOOD SPECIMENOrdering Facility: [facility] Address: [address] [place] [address] Performed By: #### 5 7021-8 ####[facility] LABORATORYCLIA [id number] [place] [address] [place] MCV (RBC) [Entitic vol] 81.7 fL Normal 80.0-100.0 [facility] Comment on above: Order Comment: Speci men Type: BLOOD SPECIMENOrdering Facility: [facility] Address: [address] [place] [address] Performed By: #### 5 7021-8 ####[facility] LABORATORYCLIA [id number] [place] [address] [place] Monocytes (Bld) [#/Vol] 0.80 10*3/uL Normal <0.87 [facility] Comment on above: Order Comment: Speci men Type: BLOOD SPECIMENOrdering Facility: [facility] Address: [address] [place] [address] Performed By: #### 5 7021-8 ####[facility] LABORATORYCLIA [id number] [place] [address] [place] Monocytes/100 WBC (Bld) 5.9 % Normal [facility] Comment on above: Order Comment: Speci men Type: BLOOD SPECIMENOrdering Facility: [facility] Address: [address] [place] [address] Performed By: #### 5 7021-8 ####[facility] LABORATORYCLIA [id number] [place] [address] [place] Neutrophils (Bld) [#/Vol] 8.85 10*3/uL High 1.45-7.50 [facility] Comment on above: Order Comment: Speci men Type: BLOOD SPECIMENOrdering Facility: [facility] Address: [address] [place] [address] Performed By: #### 5 7021-8 ####[facility] LABORATORYCLIA [id number] [address] [place] Neutrophils/100 WBC (Bld) 64.7 % Normal [facility] Comment on above: Order Comment: Speci men Type: BLOOD SPECIMENOrdering Facility: [facility] Address: [address] [place] [address] Performed By: #### 5 7021-8 ####[facility] LABORATORYCLIA [id number] [place] [address] [place] Nucleated RBC (Bld) [#/Vol] 10*3/uL Normal <0.01 [facility] Comment on above: Order Comment: Speci men Type: BLOOD SPECIMENOrdering Facility: [facility] Address: [address] [place] [address] Performed By: #### 5 7021-8 ####[facility] LABORATORYCLIA [id number] [place] [address] [place] Nucleated RBC/100 WBC (Bld) [Ratio] 0.0 /100 WBC Normal [facility] Comment on above: Order Comment: Speci men Type: BLOOD SPECIMENOrdering Facility: [facility] Address: [address] [place] [address] Performed By: #### 5 7021-8 ####[facility] LABORATORYCLIA [id number] [place] [address] [place] Platelet mean volume (Bld) [Entitic vol] 9.3 fL Normal 9.0-12.7 [facility] Comment on above: Order Comment: Speci men Type: BLOOD SPECIMENOrdering Facility: [facility] Address: [address] [place] [address] Performed By: #### 5 7021-8 ####[facility] LABORATORYCLIA [id number] [place] [address] [place] Platelets (Bld) [#/Vol] 495 10*3/uL High 150-400 [facility] Comment on above: Order Comment: Speci men Type: BLOOD SPECIMENOrdering Facility: [facility] Address: [address] [place] [address] Performed By: #### 5 7021-8 ####[facility] LABORATORYCLIA [id number] [place] [address] [place] RBC (Bld) [#/Vol] 5.07 10*6/uL Normal 3.90-5.20 [facility] Comment on above: Order Comment: Speci men Type: BLOOD SPECIMENOrdering Facility: [facility] Address: [address] [place] [address] Performed By: #### 5 7021-8 ####[facility] LABORATORYCLIA [id number] [place] [id number] [place] [facility] WBC (Bld) [#/Vol] 13.66 10*3/uL High 3.70-11.00 [facility] Comment on above: Order Comment: Speci men Type: BLOOD SPECIMENOrdering Facility: [facility] Address: [address] [place] [address] Performed By: #### 5 7021-8 ####[facility] LABORATORYCLIA [id number] [place] [id number] [place] [facility] Comprehensive metabolic 2000 panelon 03-01-2023 Albumin [Mass/Vol] 4.1 g/dL Normal 3.9-4.9 [facility] Comment on above: Order Comment: Speci men Type: BLOOD SPECIMENOrdering Facility: [facility] Address: [address] [place] [address] Performed By: #### [place], 26765-5, 3040-3, 70132-7 ####[facility] LABORATORYCLIA [id number] [place] [address] [place] ALP [Catalytic activity/Vol] 102 U/L Normal 34-123 [facility] Comment on above: Order Comment: Speci men Type: BLOOD SPECIMENOrdering Facility: [facility] Address: [address] [place] [address] Performed By: #### B HB, 83443-3, 3040-3, 76421-6 ####[facility] LABORATORYCLIA [id number] [address] ALT [Catalytic activity/Vol] 10 U/L Normal 7-38 [facility] Comment on above: Order Comment: Speci men Type: BLOOD SPECIMENOrdering Facility: [facility] Address: [address] [place] [address] Performed By: #### [place], 26996-4, 0-3, 69353-1 ####[facility] LABORATORYCLIA [id number] [place] [id number] [place] Anion gap [Moles/Vol] 15 mmol/L Normal 9-18 [facility] Comment on above: Order Comment: Speci men Type: BLOOD SPECIMENOrdering Facility: [facility] Address: [address] [place] [address] Performed By: #### B HB, 93694-1, 0-3, 86749-2 ####[facility] LABORATORYCLIA [id number] [place] [address] [place] AST [Catalytic activity/Vol] 12 U/L Low 13-35 [facility] Comment on above: Order Comment: Speci men Type: BLOOD SPECIMENOrdering Facility: [facility] Address: [address] [place] [address] Performed By: #### B HB, , 3039-3, 67703-0 ####[facility] LABORATORYCLIA [id number] [place] [address] [place] Bilirubin [Mass/Vol] 0.4 mg/dL Normal 0.2-1.3 [facility] Comment on above: Order Comment: Speci men Type: BLOOD SPECIMENOrdering Facility: [facility] Address: [address] [place] [address] Performed By: #### B HB, 83255-3, 0-3, 99695-7 ####[facility] TIFFANYChar[facility] LABORATORYCLIA [id number] [place] [address] [place] Calcium [Mass/Vol] 9.8 mg/dL Normal 8.5-10.2 [facility] Comment on above: Order Comment: Speci men Type: BLOOD SPECIMENOrdering Facility: [facility] Address: [address] [place] [address] Performed By: #### B HB, 22773-4, 3040-3, 63081-3 ####[facility] LABORATORYCLIA [id number] [place] [id number] [place] Chloride [Moles/Vol] 95 mmol/L Low 97-105 [facility] Comment on above: Order Comment: Speci men Type: BLOOD SPECIMENOrdering Facility: [facility] Address: [address] [place] [address] Performed By: #### B HB, 01462-5, 3040-3, 33803-0 ####[facility] LABORATORYCLIA [id number] [place] [id number] [place] CO2 [Moles/Vol] 23 mmol/L Normal 22-30 [facility] Comment on above: Order Comment: Speci men Type: BLOOD SPECIMENOrdering Facility: [facility] Address: [address] [place] [address] Performed By: #### B HB, 82348-1, 3040-3, 44020-0 ####[facility] LABORATORYCLIA [id number] [place] [address] [place] Creatinine [Mass/Vol] 1.02 mg/dL High 0.58-0.96 [facility] Comment on above: Order Comment: Speci men Type: BLOOD SPECIMENOrdering Facility: [facility] Address: [address] [place] [address] Performed By: #### B HB, 65760-6, 3040-3, 91171-0 ####[facility] LABORATORYCLIA [id number] [place] [address] [place] Creatinine and Glomerular filtration rate.predicted panel (S/P/Bld) 76 mL/min/1.73m??? Normal >=60 [facility] Comment on above: Order Comment: Speci men Type: BLOOD SPECIMENOrdering Facility: [facility] Address: [address] [place] [address] Result Comment: Samreen mated Glomerular Filtration Rate [...] Performed By: #### B HB, , 0-3, 95667-9 ####[facility] LABORATORYCLIA [id number] [place] [id number] [place] Glucose [Mass/Vol] 258 mg/dL High 74-99 [facility] Comment on above: Order Comment: Mahogany vargas Type: BLOOD SPECIMENOrdering Facility: [facility] Address: [address] [place] [address] Result Comment: The [place] Diabetes Association (ADA) provides guidance for cutoff [...] Standards of Medical Care in Diabetes 2016, [place] Diabetes Association. Diabetes Care. 2016.39(Suppl 1). Performed By: #### B HB, , 3039-09, ####[facility] LABORATORYCLIA [id number] [place] [address] [place] Potassium [Moles/Vol] 3.5 mmol/L Low 3.7-5.1 [facility] Comment on above: Order Comment: Mahogany vargas Type: BLOOD SPECIMENOrdering Facility: [facility] Address: [address] [place], [place] [address] Performed By: #### B HB, , 3039-3, 83539-9 ####[facility] LABORATORYCLIA [id number] [place] [address] [place] Protein [Mass/Vol] 8.5 g/dL High 6.3-8.0 [facility] Comment on above: Order Comment: Speci men Type: BLOOD SPECIMENOrdering Facility: [facility] Address: [address] [place] [address] Performed By: #### B HB, 73552-4, 3040-3, 82663-3 ####[facility] LABORATORYCLIA [id number] [address] [place] [facility] Sodium [Moles/Vol] 133 mmol/L Low 136-144 [facility] Comment on above: Order Comment: Speci men Type: BLOOD SPECIMENOrdering Facility: [facility] Address: [address] [place] [address] Performed By: #### B HB, 47340-9, 3040-3, 83510-0 ####[facility] LABORATORYCLIA [id number] [place] [address] [place] Urea nitrogen [Mass/Vol] 11 mg/dL Normal - [facility] Comment on above: Order Comment: Speci men Type: BLOOD SPECIMENOrdering Facility: [facility] Address: [address] [place] [address] Performed By: #### B HB, 80834-3, 3040-3, 66515-9 ####[facility] LABORATORYCLIA [id number] [place] [address] [place] ECG COMPLETEon 03-01-2023 ECG COMPLETE Ventricular Rate : 8 3 BPM Atrial Rate : 83 BPM P-R Interval : 126 ms QRS Duration : 90 ms Q-T Interval : 358 ms QTC Calculation(Bazett) : 420 ms Calculated P [place] : 5 degrees Calculated R [place] : 1 degrees Calculated T [place] : 13 degrees NORMAL SINUS RHYTHM MINIMAL VOLTAGE CRITERIA FOR LVH, MAY BE NORMAL VARIANT ( R in aVL ) NONSPECIFIC T WAVE ABNORMALITY ABNORMAL ECG NO PREVIOUS ECGS AVAILABLE Confirmed by ARABELLA SARMIENTO DO ([id number]), graphic editor RAFIQ GARVEY ([id number]) on 03/02/2023 7:20:55 AM NAME : GHISLAINE GIVENS PID : [id number] : 1990 Gender : Female Race : ORD : [id number] Procedure Date : Mar 01 2023 11:58:01 Edit Date : Mar 02 2023 07:20:56 Diagnosis: NORMAL SINUS RHYTHM MINIMAL VOLTAGE CRITERIA FOR LVH, MAY BE NORMAL VARIANT ( R in aVL ) NONSPECIFIC T WAVE ABNORMALITY ABNORMAL ECG NO PREVIOUS ECGS AVAILABLE Confirmed by ARABELLA SARMIENTO DO ([id number]), graphic editor RAFIQ GARVEY ([id number]) on 03/02/2023 7:20:55 AM Test Reason : Chest Pain Location : 1 : 1 ED Overread By : ARABELLA SARMIENTO DO Edited By : RAFIQ GARVEY Referred By : , Acquired by : , [facility] ED NOTEon 03-01-2023 ED NOTE HNO ID: [id number] Author: Gayathri Bruno RN Service: ? Author Type: Registered Nurse Type: ED Notes Filed: 03/01/2023 5:12 PM Note Text: NG tube removed without complications. [facility] ED NOTE HNO ID: [id number] Author: Luzma Sen RN Service: Emergency Medicine Author Type: Registered Nurse Type: ED Notes Filed: 03/01/2023 5:05 PM Note Text: Patient crying and yelling in room to take out her NG tube. Provider aware. [facility] ED NOTE HNO ID: [id number] Author: Dewayne Gallagher RN Service: ? Author Type: Registered Nurse Type: ED Notes Filed: 03/01/2023 11:20 AM Note Text: Pt has longstanding pmh abd pain with n/v, had upper gi scope done at [facility] 02/19/23 that showed mild gastritis. Pt was in [facility] office for first visit, escorted down here by nursing staff. Pt denies diarrhea, sts too many episodes of vomiting to count, sts maybe a little when asked about hematemesis. Pt sts she hasnt smoked thc in 3 mos since all this started, sts ongoing issue for past 3 mos. [facility] ED PROV NOTEon 03-01-2023 ED PROV NOTE HNO ID: [id number] Author: Arabella Sarmiento DO Service: Emergency Medicine [...] office evaluation. She was not evaluated by supply chain design manager. Vomiting too frequent to count and constant [...] was prescribed stool softeners and laxatives during [facility] stay however she refuses to take them because she feels they worsen abdominal pain. She was also prescribed narcotic pain medication for home which she states she has been taking. 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 Normal [facility] KETONES/ACETONE/BHBon 2022 Beta hydroxybutyrate [Moles/Vol] 0.70 mmol/L High <0.28 [facility] Comment on above: Order Comment: Speci men Type: BLOOD SPECIMENOrdering Facility: [facility] Address: [address] [place] [address] Performed By: #### B HB, 76785-1, 3040-3, 77242-1 ####[facility] LABORATORYCLIA [id number] [place] [id number] [place] Lipase SerPl-cCncon 03-01-20 23 Lipase [Catalytic activity/Vol] 57 U/L Normal 16-61 [facility] Comment on above: Order Comment: Speci men Type: BLOOD SPECIMENOrdering Facility: [facility] Address: [address] [place] [address] Performed By: #### B GARDENIA, 53512-8, 0-3, 23815-6 ####[facility] LABORATORYCLIA [id number] [place] [address] [place] Magnesium SerPl-mCncon 03-01 Magnesium [Mass/Vol] 1.7 mg/dL Normal 1.7-2.3 [facility] Comment on above: Order Comment: Speci men Type: BLOOD SPECIMENOrdering Facility: [facility] Address: [address] [place] [address] Performed By: #### B HB, 72963-9, 0-3, 26384-7 ####[facility] LABORATORYCLIA [id number] [place] [address] [place] TOX SCREEN ROUT URon 023 Amphetamines Confirm (U) [Mass/Vol] Negative Normal Negative [facility] Comment on above: Order Comment: Speci men Type: URINE SPECIMENOrdering Facility: [facility] Address: [address] [place] [address] Result Comment: Cuto ff threshold at 1000 ng/mL. Performed By: #### U TOX2 ####[facility] LABORATORYCLIA [id number] [place] [address] [place] BARBITURATES, URINE Negative Normal Negative [facility] Comment on above: Order Comment: Speci men Type: URINE SPECIMENOrdering Facility: [facility] Address: [address] [place] [address] Result Comment: Cuto ff threshold at 200 ng/mL. Performed By: #### U TOX2 ####[facility] LABORATORYCLIA [id number] [place] [address] [place] BENZODIAZEPINES, UR Negative Normal Negative [facility] Comment on above: Order Comment: Speci men Type: URINE SPECIMENOrdering Facility: [facility] Address: [address] [place] [address] Result Comment: Cuto ff threshold at 200 ng/mL. Performed By: #### U TOX2 ####[facility] LABORATORYCLIA [id number] [place] [address] [place] Cannabinoids Screen Ql (U) Negative Normal Negative [facility] Comment on above: Order Comment: Speci men Type: URINE SPECIMENOrdering Facility: [facility] Address: [address] [place] [address] Result Comment: Cuto ff threshold at 50 ng/mL. Performed By: #### U TOX2 ####[facility] LABORATORYCLIA [id number] [place] [address] [place] Cocaine Ql (U) Negative Normal Negative [facility] Comment on above: Order Comment: Speci men Type: URINE SPECIMENOrdering Facility: [facility] Address: [address] [place] [address] Result Comment: Cuto ff threshold at 300 ng/mL. Performed By: #### U TOX2 ####[facility] LABORATORYCLIA [id number] [place] [address] [place] Ethanol (U) [Mass/Vol] <11 Normal <11 So [facility] Comment on above: Order Comment: Speci men Type: URINE SPECIMENOrdering Facility: [facility] Address: [address] [place] [address] Performed By: #### U TOX2 ####[facility] LABORATORYCLIA [id number] [address] [place] Opiates Screen Ql (U) Positive Abnormal Negative [facility] Comment on above: Order Comment: Speci men Type: URINE SPECIMENOrdering Facility: [facility] Address: [address] [place] [address] Result Comment: Cuto ff threshold at 300 ng/mL. Performed By: #### U TOX2 ####[facility] LABORATORYCLIA [id number] [address] [place] oxyCODONE cutoff Screen (U) [Mass/Vol] Negative Normal Negative [facility] Comment on above: Order Comment: Speci men Type: URINE SPECIMENOrdering Facility: [facility] Address: [address] [place] [address] Result Comment: Cuto ff threshold at 100 ng/mL. Performed By: #### U TOX2 ####[facility] LABORATORYCLIA [id number] [address] STATES [facility] Phencyclidine Ql (U) Negative Normal Negative [facility] Comment on above: Order Comment: Speci men Type: URINE SPECIMENOrdering Facility: [facility] Address: [address] [place] [address] Result Comment: Cuto ff threshold at 25 ng/mL. Performed By: #### U TOX2 ####[facility] LABORATORYCLIA [id number] [address] [place] Urinalysis complete panel (U )on 03-01-2023 Bacteria LM.HPF (Urine sed) [#/Area] Moderate Abnormal None Seen [facility] Comment on above: Order Comment: Speci men Type: URINE SPECIMENOrdering Facility: [facility] Address: [address] [place] [address] Performed By: #### 2 4356-8 ####[facility] LABORATORYCLIA [id number] [place] [address] [place] Bilirubin Ql (U) 1+ Abnormal Negative [facility] Comment on above: Order Comment: Speci men Type: URINE SPECIMENOrdering Facility: [facility] Address: [address] [place] [address] Result Comment: Sugg est correlation with clinical findings and serum bilirubin if clinically indicated. Performed By: #### 2 4356-8 ####[facility] LABORATORYCLIA [id number] [place] [address] [place] Clarity (Unsp spec) Cloudy Abnormal Clear [facility] Comment on above: Order Comment: Speci men Type: URINE SPECIMENOrdering Facility: [facility] Address: [address] [place] [address] Performed By: #### 2 4356-8 ####[facility] LABORATORYCLIA [id number] [address] [place] Color (U) Yellow Normal Yellow [facility] Comment on above: Order Comment: Speci men Type: URINE SPECIMENOrdering Facility: [facility] Address: [address] [place] [address] Performed By: #### 2 4356-8 ####[facility] LABORATORYCLIA [id number] [place] [address] [place] Epithelial cells LM.HPF (Urine sed) [#/Area] Many Normal [facility] Comment on above: Order Comment: Speci men Type: URINE SPECIMENOrdering Facility: [facility] Address: [address] [place] [address] Result Comment: Few Performed By: #### 2 4356-8 ####[facility] LABORATORYCLIA [id number] [place] [address] [place] Glucose Test strip (U) [Mass/Vol] Trace Abnormal Negative [facility] Comment on above: Order Comment: Speci men Type: URINE SPECIMENOrdering Facility: [facility] Address: [address] [place] [address] Performed By: #### 2 4356-8 ####[facility] LABORATORYCLIA [id number] [address] [place] Hemoglobin Ql (U) Negative Normal Negative, Trace [facility] Comment on above: Order Comment: Speci men Type: URINE SPECIMENOrdering Facility: [facility] Address: [address] [place] [address] Performed By: #### 2 4356-8 ####[facility] LABORATORYCLIA [id number] [place] [address] [place] Hyaline casts (Urine sed) [#/Area] 1-3 /LPF Abnormal 0 /LPF [facility] Comment on above: Order Comment: Speci men Type: URINE SPECIMENOrdering Facility: [facility] Address: [address] [place] [address] Performed By: #### 2 4356-8 ####[facility] LABORATORYCLIA [id number] [address] [place] Ketones Ql (U) Trace Abnormal Negative [facility] Comment on above: Order Comment: Speci men Type: URINE SPECIMENOrdering Facility: [facility] Address: [address] [place] [address] Performed By: #### 2 4356-8 ####[facility] LABORATORYCLIA [id number] [address] Leukocyte esterase Test strip Ql (U) Negative Normal Negative [facility] Comment on above: Order Comment: Speci men Type: URINE SPECIMENOrdering Facility: [facility] Address: [address] [place] [address] Performed By: #### 2 4356-8 ####[facility] LABORATORYCLIA [id number] [place] [address] [place] Nitrite Ql (U) Negative Normal Negative [facility] Comment on above: Order Comment: Speci men Type: URINE SPECIMENOrdering Facility: [facility] Address: [address] [place] [address] Performed By: #### 2 4356-8 ####[facility] LABORATORYCLIA [id number] [address] [place] pH (U) 5.5 [pH] Normal 5.0-8.0 [facility] Comment on above: Order Comment: Speci men Type: URINE SPECIMENOrdering Facility: [facility] Address: [address] [place] [address] Performed By: #### 2 4356-8 ####[facility] LABORATORYCLIA [id number] [place] [address] [place] Protein (U) [Mass/Vol] 2+ Abnormal Negative [facility] Comment on above: Order Comment: Speci men Type: URINE SPECIMENOrdering Facility: [facility] Address: [address] [place] [address] Performed By: #### 2 4356-8 ####[facility] LABORATORYCLIA [id number] [place] [address] [place] RBC LM.HPF (Urine sed) [#/Area] 0-3 /HPF Normal 0-3 /HPF [facility] Comment on above: Order Comment: Speci men Type: URINE SPECIMENOrdering Facility: [facility] Address: [address] [place] [address] Performed By: #### 2 4356-8 ####[facility] LABORATORYCLIA [id number] [address] [place] Specific gravity (U) [Rel density] >=1.030 High 1.005-1.030 [facility] Comment on above: Order Comment: Speci men Type: URINE SPECIMENOrdering Facility: [facility] Address: [address] [place] [address] Performed By: #### 2 4356-8 ####[facility] LABORATORYCLIA [id number] [address] [place] Urobilinogen Ql (U) 1.0 EU/dL Normal 0.2-1.0 EU/dL [facility] Comment on above: Order Comment: Speci men Type: URINE SPECIMENOrdering Facility: [facility] Address: [address] [place] [address] Performed By: #### 2 4356-8 ####[facility] LABORATORYCLIA [id number] [place] [address] [place] WBC LM.HPF (Urine sed) [#/Area] 0-5 /HPF Normal 0-5 /HPF [facility] Comment on above: Order Comment: Speci men Type: URINE SPECIMENOrdering Facility: [facility] Address: [place] [address] Performed By: #### 2 4356-8 ####[facility] LABORATORYCLIA [id number] [address] [place] Absolute lymphocyte countOrd ered By: Perico Norman on 02-26-2023 Lymphocytes Auto (Unsp spec) [#/Vol] 2.45 10*3/uL 0.83-4.51 [facility] Basophil percentageOrdered B y: Perico Norman on 02-26-2023 Basophil percentage 0-5 SEEN /hpf 0-5 [facility] Basophil percentage 271 mg/dL 74-106 [facility] Basophil percentage 9.3 g/dL 6.4-8.2 [facility] Basophil percentage 0.80 mg/dL 0.20-1.00 [facility] Basophil percentage 131 mmol/L 136-145 [facility] Basophil percentage 3.4 mmol/L 3.5-5.1 [facility] Basophil percentage 98 mmol/L 98-107 [facility] Basophils (Bld) [#/Vol] 16.2 10*3/uL 4.4-11.0 [facility] Basophils (Bld) [#/Vol] 12.3 10*3/uL 2.0-7.7 [facility] Basophils/100 WBC (Bld) 75.8 % 47-70 [facility] Basophils/100 WBC (Bld) 0.1 % 0-5 [facility] Basophils/100 WBC (Bld) 0.4 % 0-1 [facility] Bilirubin [Mass/Vol] 0.80 mg/dL 0.20-1.00 [facility] Comment on above: For patients on eltr ombopag therapy, use of Dimension [place] TBIL is not recommended. Chloride [Moles/Vol] 98 mmol/L 98-107 [facility] Eosinophils/100 WBC (Bld) 0.1 % 0-5 [facility] Glucose [Mass/Vol] 271 mg/dL 74-106 [facility] Comment on above: Glucose result great er than or equal to 200 mg/dLsuggests DIABETES MELLITUS per A.D.A. criteria. Neutrophils (Bld) [#/Vol] 12.3 10*3/uL 2.0-7.7 [facility] Neutrophils/100 WBC (Bld) 75.8 % 47-70 [facility] Potassium [Moles/Vol] 3.4 mmol/L 3.5-5.1 [facility] Protein [Mass/Vol] 9.3 g/dL 6.4-8.2 [facility] Sodium [Moles/Vol] 131 mmol/L 136-145 [facility] WBC (Bld) [#/Vol] 16.2 10*3/uL 4.4-11.0 [facility] Beta hCG serum qualOrdered B y: Perico Norman on 02-26-2023 Beta HCG ( test) Ql Negative [facility] Bilirubin Test strip Ql (U)O rdered By: Perico Norman on 02-26-2023 Bilirubin Ql (U) Negative Negative [facility] Blood erythrocytes count (nu mber/volume)Ordered By: Perico Norman on 02-26-2023 RBC (Bld) [#/Vol] 4.97 10*6/uL 4.2-5.4 [facility] Blood hemoglobin measurement (mass/volume)Ordered By: Perico Norman on 02-26-2023 Hemoglobin (Bld) [Mass/Vol] 13.3 g/dL 12.0-15.0 [facility] Blood lymphocytes/100 leukoc ytesOrdered By: Perico Norman on 02-26-2023 Lymphocytes/100 WBC (Bld) 15.1 % 19-41 [facility] Blood monocytes/100 leukocyt esOrdered By: Perico Norman on 02-26-2023 Monocytes/100 WBC (Bld) 8.0 % 0-10 [facility] Blood platelet mean volumeOr dered By: Perico Norman on 02-26-2023 Platelet mean volume (Bld) [Entitic vol] 9.1 fL 6.2-12.0 [facility] Determination of erythrocyte mean corpuscular volume (MCV)Ordered By: Perico Norman on 02-26-2023 MCV (RBC) [Entitic vol] 80.9 fL 81-99 [facility] Direct bilirubinOrdered By: Perico Norman on 02-26-2023 Bilirubin.direct [Mass/Vol] 0.22 mg/dL 0.00-0.30 [facility] Hematocrit Auto (Bld) [Volum e fraction]Ordered By: Perico Norman on 02-26-2023 Hematocrit (Bld) [Volume fraction] 40.2 % 37-47 [facility] Ketones Test strip Ql (U)Ord ered By: Perico Norman on 02-26-2023 Ketones Ql (U) 15 mg/dl Negative [facility] Laboratory - Chemistry and C hemistry - challengeOrdered By: Perico Norman on 02-26-2023 ALP [Catalytic activity/Vol] 108 U/L 45-117 [facility] ALT [Catalytic activity/Vol] 17 U/L 13-56 [facility] CO2 [Moles/Vol] 22.0 mmol/L 21.0-32.0 [facility] Globulin (S) [Mass/Vol] 5.7 g/dL 2.2-4.2 [facility] Lipase [Catalytic activity/Vol] 64 U/L 13-75 [facility] Comment on above: Please note:LIPASE r evised reference range effective 22. New Lipase methodology. Expected to produce lower values than the previous assay method. NEW Reference Range: 13 - 75 U/L Magnesium [Mass/Vol] 2.0 mg/dL 1.6-2.6 [facility] Urea nitrogen/Creatinine [Mass ratio] 13.2 mg/mg 10-20 [facility] Laboratory - Hematology and Cell countsOrdered By: Perico Norman on 02-26-2023 Erythrocyte distribution width (RBC) [Entitic vol] 38.7 fL 35.1-43.9 [facility] Erythrocyte distribution width (RBC) [Ratio] 13.2 % 11.6-14.6 [facility] Immature granulocytes/100 WBC (Bld) 0.600 % 0.0-0.9 [facility] Comment on above: IG% - Immature Granu locytes (promyelocytes, myelocytes and metamyelocytes) > 1% indicates that a LEFT SHIFT is Present. MCH (RBC) [Entitic mass] 26.8 pg 27.0-32.0 [facility] Nucleated RBC/100 WBC (Bld) [Ratio] 0 % 0-5 [facility] MCHC Auto (RBC) [Mass/Vol]Or dered By: Perico Norman on 02-26-2023 MCHC (RBC) [Mass/Vol] 33.1 g/dL 32-36 [facility] Mucus LM Ql (Urine sed)Order ed By: Perico Norman on 02-26-2023 Mucus Ql (Urine sed) 0 SEEN /hpf [facility] Nitrite Test strip Ql (U)Ord ered By: Perico Norman on 02-26-2023 Nitrite Ql (U) Negative Negative [facility] No Panel InformationOrdered By: Perico Norman on 02-26-2023 Urine Transitional Epithelial Cells 0-5 SEEN /hpf 0-5 [facility] 0-5 SEEN /hpf 0-5 [facility] Estimated Creatinine Clearance Calc 50.20 ml/min [facility] Estimated GFR (MDRD) Amer 51 mL/min >60 [facility] Comment on above: GFR Calc Estimated GFR (MDRD) Non-Af Amer 42 mL/min >60 [facility] Comment on above: Non- GFR Calc 26.8 pg 27.0-32.0 [facility] 13.2 % 11.6-14.6 [facility] 38.7 fl 35.1-43.9 [facility] 0.600 % 0.0-0.9 [facility] 0 % 0-5 [facility] 42 mL/min >60 [facility] 51 mL/min >60 [facility] 50.20 ml/min [facility] 13.2 RATIO 10-20 [facility] 5.7 g/dL 2.2-4.2 [facility] 64 U/L 13-75 [facility] 108 U/L 45-117 [facility] 17 U/L 13-56 [facility] 2.0 mg/dL 1.6-2.6 [facility] 22.0 mmol/L 21.0-32.0 [facility] Platelets bldOrdered By: Bakari Norman on 02-26-2023 Platelets (Bld) [#/Vol] 483 10*3/uL 150-450 [facility] Protein Test strip Ql (U)Ord ered By: Perico Norman on 02-26-2023 Protein Ql (U) 30 mg/dl Negative [facility] Serum or plasma albumin hussein urement (mass/volume)Ordered By: Perico Norman on 02-26-2023 Albumin [Mass/Vol] 3.6 g/dL 3.2-5.0 [facility] Serum or plasma calcium hussein urement (mass/volume)Ordered By: Perico Norman on 02-26-2023 Calcium [Mass/Vol] 9.8 mg/dL 8.5-10.1 [facility] Serum or plasma creatinine m easurement (mass/volume)Ordered By: Perico Norman on 02-26-2023 Creatinine [Mass/Vol] 1.52 mg/dL 0.55-1.02 [facility] Comment on above: The validity of the calculated GFR & GFRAA in patients over 70 years has not been determined. Clinical correlation is essential. Serum or plasma urea nitroge n measurement (mass/volume)Ordered By: Perico Norman on 02-26-2023 Urea nitrogen [Mass/Vol] 20 mg/dL 7-18 [facility] Squamous epithelial cells de tection in urine sediment by light microscopyOrdered By: Perico Norman on 02-26-2023 Epithelial cells.squamous LM Ql (Urine sed) 0-5 SEEN /hpf 5-10 [facility] Thin prep Papanicolaou smear with manual screeningOrdered By: Perico Norman on 02-26-2023 Thin prep Papanicolaou smear with manual screening 12 U/L 15-37 [facility] Thin prep Papanicolaou smear with manual screening 11 5-15 [facility] Urine blood detectionOrdered By: Perico Norman on 02-26-2023 RBC Ql (U) 10 /ul Negative [facility] RBC Ql (U) 0 SEEN /hpf 0-5 [facility] Urine clarityOrdered By: Bakari Norman on 02-26-2023 Clarity (U) Clear Clear [facility] Urine color determinationOrd ered By: Perico Norman on 02-26-2023 Color (U) Yellow Yellow [facility] Urine glucose detectionOrder ed By: Perico Norman on 02-26-2023 Glucose Ql (U) 100 mg/dl Normal [facility] Urine leukocyte esterase det ection by dipstickOrdered By: Perico Norman on 02-26-2023 Leukocyte esterase Test strip Ql (U) 25 /ul Negative [facility] Urine pHOrdered By: Perico hernandez on 02-26-2023 pH (U) 5.0 [pH] 5.0 - 8.0 [facility] Urine sediment bacteria coun t by microscopy (number/high power field)Ordered By: Perico Norman on 02-26-2023 Bacteria LM.HPF (Urine sed) [#/Area] RARE /hpf None Seen [facility] Urine specific gravity measu rementOrdered By: Perico Norman on 02-26-2023 Specific gravity (U) [Rel density] 1.020 1.002-1.030 [facility] Urobilinogen Auto test strip Ql (U)Ordered By: Perico Norman on 02-26-2023 Urobilinogen Ql (U) Normal mg/dl Normal [facility] CBC + DIFFon 02-17-2023 Baso # 0.00 x10EE3/UL Normal 0.00 - 0.10 [facility] Comment on above: Performed By: #### 2 [id number] #### [facility],[address] [place] [address] Basophils/100 WBC (Bld) 0.4 % Normal 0.0 - 2.0 [facility] Comment on above: Performed By: #### 2 06469 #### [facility],[address] [place] [address] CBC + DIFF Normal [facility] Comment on above: Result Comment: CBC- COMPLETE BLOOD COUNT Performed By: #### 2 22011 #### [facility],[address] [place] [address] EO # 0.00 x10EE3/UL Normal 0.00 - 0.50 [facility] Comment on above: Performed By: #### 2 [id number] #### [facility],[address] [place] [address] Eosinophils/100 WBC (Bld) 0.2 % Normal 0.0 - 7.0 [facility] Comment on above: Performed By: #### 2 [id number] #### [facility],[address] [place] [address] Erythrocyte distribution width (RBC) [Ratio] 15.1 % Normal 12.0 - 15.6 [facility] Comment on above: Performed By: #### 2 [id number] #### [facility],[address] [place] [address] Hematocrit (Bld) [Volume fraction] 39.7 % Normal 34.0 - 46.0 [facility] Comment on above: Performed By: #### 2 79772 #### [facility],[address] [place] [address] Hemoglobin (Bld) [Mass/Vol] 13.3 g/dL Normal 12.0 - 16.0 [facility] Comment on above: Performed By: #### 2 [id number] #### [facility],[address] [place] [address] 69361 Lymph # 3.30 x10EE3/UL High 0.80 - 2.80 [facility] Comment on above: Performed By: #### 2 57276 #### [facility],[address] [place] [address] 14917 Lymphocytes/100 WBC (Bld) 30.5 % Normal 20.0 - 45.0 [facility] Comment on above: Performed By: #### 2 55834 #### [facility],[address] [place], [place] [id number] MANUAL DIFF N/A Normal [facility] Comment on above: Performed By: #### 2 36640 #### [facility],[address] [place] [address] MCH (RBC) [Entitic mass] 27 pg Normal 27 - 33 [facility] Comment on above: Performed By: #### 2 51362 #### [facility],[address] [place] [address] MCHC 33 X10 3 Normal 32 - 36 [facility] Comment on above: Performed By: #### 2 36854 #### [facility],[address] [place] [address] MCV (RBC) [Entitic vol] 80 fL Normal 80 - 99 [facility] Comment on above: Performed By: #### 2 38202 #### [facility],[address] [place] [address] [place] # 0.60 x10EE3/UL Normal 0.20 - 1.00 [facility] Comment on above: Performed By: #### 2 81005 #### [facility],[address] [place] [address] MONOS % 5.9 % Normal 0.0 - 10.0 [facility] Comment on above: Performed By: #### 2 96535 #### [facility],[address] [place] [address] Morphology Franky (Bld) [Interp] N/A Normal [facility] Comment on above: Result Comment: {CD] Performed By: #### 2 84358 #### [facility],[address] [place] [address] Neut # 6.90 x10EE3/UL Normal 1.50 - 7.10 [facility] Comment on above: Performed By: #### 2 11540 #### [facility],[address] [place] [address] Neutrophils/100 WBC (Bld) 63.0 % Normal 46.0 - 76.0 [facility] Comment on above: Performed By: #### 2 26858 #### [facility],[address] [place] [address] 96559 PLATELET 561 x10EE3/UL High 150 - 450 [facility] Comment on above: Performed By: #### 2 13302 #### [facility],[address] [place] [address] 33693 Platelet mean volume (Bld) [Entitic vol] 7.6 fL Normal 6.6 - 10.5 [facility] Comment on above: Result Comment: AUTO MATED DIFFERENTIAL Performed By: #### 2 15433 #### [facility],[address] [place] [address] 55754 RBC 4.95 x 10EE6/UL Normal 4.10 - 5.30 [facility] Comment on above: Performed By: #### 2 90043 #### [facility],[address] [place] [address] 54766 WBC 10.9 x 10EE3/UL High 4.5 - 10.8 [facility] Comment on above: Performed By: #### 2 90029 #### [facility],[address] [place] [address] 84123 CMP with eGFRon 02-17-2023 AGE 33 years Normal [facility] Comment on above: Performed By: #### 2 04310 #### [facility],[address] [place] [address] 77137 Albumin [Mass/Vol] 3.5 g/dL Normal 3.4 - 5.0 [facility] Comment on above: Performed By: #### 2 20993 #### [facility],[address] [place] [address] 72595 Albumin/Globulin [Mass ratio] 0.6 {ratio} Low 0.9 - 1.6 [facility] Comment on above: Performed By: #### 2 55180 #### [facility],[address] [place] [address] 73349 ALK PHOS 112 U/L Normal 46 - 116 [facility] Comment on above: Performed By: #### 2 62549 #### [facility],[address] [place] [address] 10150 ALT [Catalytic activity/Vol] 28 U/L Normal 14 - 59 [facility] Comment on above: Performed By: #### 2 02391 #### [facility],[address] [place] [address] 12608 Anion gap [Moles/Vol] 21 mmol/L High 10 - 20 [facility] Comment on above: Performed By: #### 2 70768 #### [facility],[address] [place] [address] 34611 AST [Catalytic activity/Vol] 13 U/L Normal 13 - 39 [facility] Comment on above: Performed By: #### 2 31517 #### [facility],[address] [place] [address] 40341 B/C RATIO 12 ratio Normal 0 - 30 [facility] Comment on above: Performed By: #### 2 56954 #### [facility],[address] [place] [address] 78004 Bilirubin [Mass/Vol] 0.6 mg/dL Normal 0.2 - 1.0 [facility] Comment on above: Performed By: #### 2 84262 #### [facility],[address] [place] [address] 24807 Calcium [Mass/Vol] 9.6 mg/dL Normal 8.5 - 10.1 [facility] Comment on above: Performed By: #### 2 10809 #### [facility],[address] [place] [address] 78930 Chloride [Moles/Vol] 94 mmol/L Low 98 - 107 [facility] Comment on above: Performed By: #### 2 97344 #### [facility],[address] [place] [address] 83591 CMP with eGFR Normal [facility] Comment on above: Result Comment: COMP REHENSIVE METABOLIC PANEL Performed By: #### 2 50187 #### [facility],[address] [place] [address] 69223 CO2 [Moles/Vol] 23.7 mmol/L Normal 21.0 - 32.0 [facility] Comment on above: Performed By: #### 2 54812 #### [facility],[address] [place] [address] 56687 Creatinine [Mass/Vol] 1.18 mg/dL High 0.55 - 1.02 [facility] Comment on above: Performed By: #### 2 68776 #### [facility],[address] [place] [address] 88713 eGFR 53 ML/MINUTE Low 60 - 999 [facility] Comment on above: Performed By: #### 2 90604 #### [facility],[address] [place] [address] 04079 GFR/1.73 sq M.predicted among non-blacks MDRD (S/P/Bld) [Vol rate/Area] mL/min/{1.73_m2} Normal 60 - 999 [facility] Comment on above: Result Comment: ACCO RDING TO THE NATIONAL KIDNEY DISEASE EDUCATION PROGRAM(NKDE), A NORMAL eGFR IS A VALUE GREATER THAN OR EQUAL TO 60 ML/MIN/1.73 SQ METERS. CHRONIC KIDNEY DISEASE: <60mL/MIN/1.73 SQ METERS KIDNEY FAILURE: <15mL/MIN/1.73 SQ METERS THIS TEST SHOULD ONLY BE USED FOR PATIENTS 18 YEARS OF AGE AND OLDER. Performed By: #### 2 88820 #### [facility],[address] [place] [address] 23418 Globulin (S) [Mass/Vol] 5.4 g/dL High 1.5 - 3.8 [facility] Comment on above: Performed By: #### 2 09358 #### [facility],[address] [place] [address] 08320 Glucose [Mass/Vol] 306 mg/dL High 74 - 106 [facility] Comment on above: Performed By: #### 2 93149 #### [facility],[address] [place] [address] 54876 Potassium [Moles/Vol] 3.9 mmol/L Normal 3.5 - 5.1 [facility] Comment on above: Performed By: #### 2 81608 #### [facility],[address] [place] [address] 23229 Protein [Mass/Vol] 8.9 g/dL High 6.4 - 8.2 [facility] Comment on above: Performed By: #### 2 92462 #### [facility],[address] [place] [address] 18136 Sodium [Moles/Vol] 135 mmol/L Low 136 - 145 [facility] Comment on above: Performed By: #### 2 92999 #### [facility],[address] [place] [address] 35976 Urea nitrogen [Mass/Vol] 14 mg/dL Normal 7 - 18 [facility] Comment on above: Performed By: #### 2 54755 #### [facility],[address] [place] [address] 78168 DRUG SCREEN URINE MEDICon AMPHETAMINES Negative Normal [facility] Comment on above: Performed By: #### 2 76521 #### [facility],[address] [place] [address] 08837 B-DIAZEPINES Negative Normal [facility] Comment on above: Performed By: #### 2 79200 #### [facility],[address] [place] [address] 29943 BARBITURATES Negative Normal [facility] Comment on above: Performed By: #### 2 97048 #### [facility],[address] [place] [address] 66523 COCAINE Negative Normal [facility] Comment on above: Performed By: #### 2 83840 #### [facility],[address] [place] [address] 34262 DRUG SCREEN URINE MEDIC Normal [facility] Comment on above: Result Comment: DRUG SCREEN - URINE Performed By: #### 2 67693 #### [facility],[address] [place] [address] METHADONE Negative Normal [facility] Comment on above: Performed By: #### 2 71700 #### [facility],[address] [place] [address] OPIATES Negative Normal [facility] Comment on above: Performed By: #### 2 65248 #### [facility],[address] [place] [address] PCP Negative Normal [facility] Comment on above: Performed By: #### 2 55568 #### [facility],[address] [place] [address] THC Negative Normal [facility] Comment on above: Result Comment: ERASTO ENTS RECEIVING PROTON PUMP INHIBITORS MAY DEMONSTRATE FALSE POSITIVE THC/CANNABINOID RESULTS. AN ALTERNATIVE CONFIRMATORY METHOD SHOULD BE CONSIDERED TO VERIFY POSITIVE RESULTS. Performed By: #### 2 40071 #### [facility],[address] [place] [address] LIPASEon 02-17-2023 Lipase [Catalytic activity/Vol] 103.0 U/L Normal 73.0 - 393 [facility] Comment on above: Performed By: #### 2 81536 #### [facility],[address] [place] [address] URINEon 02-17-2023 Beta HCG ( test) Ql (U) Negative Normal NEGATIVE [facility] Comment on above: Performed By: #### 2 16878 #### [facility],[address] [place] [address] EXTERNAL QC DONE? YES Normal [facility] Comment on above: Performed By: #### 2 35735 #### [facility],[address] [place] [address] INTERNAL QC PASS Normal [facility] Comment on above: Performed By: #### 2 24763 #### [facility],[address] [place] [address] 85940 URINALYSISon 02-17-2023 Amorphous NONE Normal [facility] Comment on above: Performed By: #### 2 78135 #### [facility],[address] [place] [address] 10880 Bacteria TRACE Normal [facility] Comment on above: Performed By: #### 2 45226 #### [facility],[address] [place] [address] 60484 Bilirubin Ql (U) Negative Normal NORMAL: NEGATIVE [facility] Comment on above: Performed By: #### 2 38399 #### [facility],[address] [place] [address] 17646 Casts NONE Normal [facility] Comment on above: Performed By: #### 2 20247 #### [facility],[address] [place], [place] [phone] Clarity (U) sl.cloudy Normal NORMAL: CLEAR [facility] Comment on above: Performed By: #### 2 72978 #### [facility],[address] [place] [address] 85899 Color (U) jaqui Normal NORMAL: YELLOW [facility] Comment on above: Performed By: #### 2 22794 #### [facility],[address] [place] [address] 12467 Crystals LM Nom (Urine sed) NONE Normal [facility] Comment on above: Performed By: #### 2 33697 #### [facility],[address] [place] [address] 70971 Epi Cells FEW Normal [facility] Comment on above: Performed By: #### 2 48119 #### [facility],[address] [place] [address] 90530 Glucose Ql (U) 250 Abnormal NORMAL: NORMAL [facility] Comment on above: Performed By: #### 2 19754 #### [facility],[address] [place] [address] 86185 Hemoglobin Ql (U) Negative Normal NORMAL: NEGATIVE [facility] Comment on above: Performed By: #### 2 39764 #### [facility],[address] [place] [address] 05911 Ketone 150 Abnormal NORMAL: NEGATIVE [facility] Comment on above: Performed By: #### 2 51191 #### [facility],[address] [place] [address] 63836 Leukocytes 25 Abnormal NORMAL: NEGATIVE [facility] Comment on above: Performed By: #### 2 55331 #### [facility],[address] [place] [address] 98531 Mucous NONE Normal [facility] Comment on above: Performed By: #### 2 12811 #### [facility],[address] [place] [address] 87140 Nitrite Ql (U) Negative Normal NORMAL: NEGATIVE [facility] Comment on above: Performed By: #### 2 78530 #### [facility],[address] [place] [address] 34487 pH (U) 8 [pH] Normal NORMAL: 5.0-8.0 [facility] Comment on above: Performed By: #### 2 10962 #### [facility],[address] [place] [address] 56422 Protein Ql (U) 30 Abnormal NORMAL: NEGATIVE [facility] Comment on above: Performed By: #### 2 04117 #### [facility],[address] [place] [address] 31731 Rbc NONE Normal 0-3/hpf [facility] Comment on above: Performed By: #### 2 96109 #### [facility],[address] [place] [address] 96262 Sp [place] 1.010 Normal NORMAL: 1.010-1.030 [facility] Comment on above: Performed By: #### 2 83898 #### [facility],[address] [place] [address] Specimen Type UNSPECIFIED Normal [facility] Comment on above: Performed By: #### 2 46852 #### [facility],[address] [place] [address] Urinalysis dipstick W Reflex Microscopic panel (U) SEE BELOW Normal [facility] Comment on above: Result Comment: MICR OSCOPIC Performed By: #### 2 63409 #### [facility],[address] [place] [address] Urobilinog NORM Normal NORMAL: NORMAL [facility] Comment on above: Performed By: #### 2 13958 #### [facility],[address] [place] [address] Wbc 1-5 Normal 0-5/hpf [facility] Comment on above: Performed By: #### 2 87743 #### [facility],[address] [place] [address] Yeast NONE Normal [facility] Comment on above: Performed By: #### 2 78304 #### [facility],[address] [place] [address] .Auto Diffon 02-11-2023 Basophil, Absolute 0.1 10 3/mcL Normal 0.0-0.2 [facility] ([place]) Comment on above: Performed By: #### A DIFF, GFR, MDW, CMP, ANEU, CBC, LIP #### [address] [address] Basophils/100 WBC (Bld) 0.5 % Normal 0.0-2.5 A [facility] ([place]) Comment on above: Performed By: #### A DIFF, GFR, MDW, CMP, ANEU, CBC, LIP #### [address] [address] Eosinophil, Absolute 0.0 10 3/mcL Normal 0.0-0.4 Counts include 234 beds at the [facility] ([place]) Comment on above: Performed By: #### A DIFF, GFR, MDW, CMP, ANEU, CBC, LIP #### [address] [address] Eosinophils/100 WBC (Bld) 0.2 % Normal 0.0-7.0 [facility] ([place] Comment on above: Performed By: #### A DIFF, GFR, MDW, CMP, ANEU, CBC, LIP #### [address] [address] Lymphocyte, Absolute 4.2 10 3/mcL High 0.8-3.9 Counts include 234 beds at the [facility] ([place]) Comment on above: Performed By: #### A DIFF, GFR, MDW, CMP, ANEU, CBC, LIP #### [address] [address] Lymphocytes/100 WBC (Bld) 32.7 % Normal 10.0-50.0 [facility] ([place]) Comment on above: Performed By: #### A DIFF, GFR, MDW, CMP, ANEU, CBC, LIP #### [address] [address] Monocyte, Absolute 0.9 10 3/mcL Normal 0.2-1.0 [facility] ([place]) Comment on above: Performed By: #### A DIFF, GFR, MDW, CMP, ANEU, CBC, LIP #### [address] [address] Monocytes/100 WBC (Bld) 7.0 % Normal 1.7-13.0 [facility] ([place]) Comment on above: Performed By: #### A DIFF, GFR, MDW, CMP, ANEU, CBC, LIP #### [address] [address] Neutrophils/100 WBC (Bld) 59.6 % Normal 37.0-80.0 [facility] ([place]) Comment on above: Performed By: #### A DIFF, GFR, MDW, CMP, ANEU, CBC, LIP #### [address] [address] Basophil, Absolute 0.1 10 3/mcL Normal 0.0-0.2 [facility] ([place]) Comment on above: Performed By: #### C MP, GFR, CBC, LIP, ADIFF, ANEUMDW #### [address] [address] Basophils/100 WBC (Bld) 0.6 % Normal 0.0-2.5 A [facility] ([place]) Comment on above: Performed By: #### C MP, GFR, CBC, LIP, ADIFF, ANEU, W #### [address] [address] Eosinophil, Absolute 0.0 10 3/mcL Normal 0.0-0.4 Counts include 234 beds at the [facility] ([place]) Comment on above: Performed By: #### C MP, GFR, CBC, LIP, ADIFF, ANEUMDW #### [address] [address] Eosinophils/100 WBC (Bld) 0.1 % Normal 0.0-7.0 [facility] ([place] Comment on above: Performed By: #### C MP, GFR, CBC, LIP, ADIFF, ANEUALDAIR #### [address] [address]228 Lymphocyte, Absolute 4.2 10 3/mcL High 0.8-3.9 Counts include 234 beds at the [facility] ([place]) Comment on above: Performed By: #### C MP, GFR, CBC, LIP, ADIFF, ANEU, W #### [address] [address]97 Lymphocytes/100 WBC (Bld) 26.5 % Normal 10.0-50.0 [facility] ([place] Comment on above: Performed By: #### C MP, GFR, CBC, LIP, ADIFF, ANEUMDW #### [address] [address] Monocyte, Absolute 1.0 10 3/mcL Normal 0.2-1.0 [facility] ([place]) Comment on above: Performed By: #### C MP, GFR, CBC, LIP, ADIFF, ANEUMDW #### [address] [address] Monocytes/100 WBC (Bld) 6.1 % Normal 1.7-13.0 A [facility] ([place]) Comment on above: Performed By: #### C MP, GFR, CBC, LIP, DESIRAE TORRES MDW #### [address] [address] Neutrophils/100 WBC (Bld) 66.7 % Normal 37.0-80.0 [facility] ([place] Comment on above: Performed By: #### C MP, GFR, CBC, LIP, DESIRAE TORRES MDW #### [address] [address] .GFRon 02-11-2023 GFR 63 ml/min/1.73sqm Normal [facility] ([place] Comment on above: Result Comment: GFR Population [...] GFR, MDW, CMP, ANEU, CBC, LIP #### [place] [address] [place], [place] [address] GFR Non- 52 ml/min/1.73sqm Normal [facility] ([place] Comment on above: Result Comment: GFR Population [...] GFR, MDW, CMP, ANEU, CBC, LIP #### [address] [address] GFR Non- 42 ml/min/1.73sqm Normal [facility] ([place] Comment on above: Result Comment: GFR Population [...] GFR, MDW, CMP, ANEU, CBC, LIP #### [address] [address] GFR 51 ml/min/1.73sqm Normal [facility] ([place] Comment on above: Result Comment: GFR Population [...] GFR, MDW, CMP, ANEU, CBC, LIP #### [place] [address] .MDWon 02-11-2023 Monocyte Distribution Width 19.69 Normal 0.00-20.00 [facility] ([place] Comment on above: Result Comment: For ED adult patients suspected of sepsis, MDW<=20.0 does not rule out sepsis or risk of sepsis Performed By: #### A DIFF, GFR, MDW, CMP, ANEU, CBC, LIP #### [place] [address] .NEUABSon 02-11-2023 Neutrophil, Absolute 7.6 10 3/mcL High 2.9-6.2 Counts include 234 beds at the [facility] ([place]) Comment on above: Performed By: #### A DIFF, GFR, MDW, CMP, ANEU, CBC, LIP #### [place] [address] Neutrophil, Absolute 10.5 10 3/mcL High 2.9-6.2 [facility] ([place]) Comment on above: Performed By: #### C MP, GFR, CBC, LIP, ADIFF, ANEU, MDW #### [place] [address] .Urinalysis Microscopic (AO) on 02-11-2023 UA Bacteria Trace Abnormal [facility] ([place] Comment on above: Performed By: #### A DIFF, GFR, MDW, CMP, ANEU, CBC, LIP #### [place] [address] UA RBC None Seen Normal None Seen [facility] ([place] Comment on above: Performed By: #### A DIFF, GFR, MDW, CMP, ANEU, CBC, LIP #### [place] [address] UA Squam Epithelial 0-5 Abnormal None Seen [facility] ([place]) Comment on above: Performed By: #### A DIFF, GFR, MDW, CMP, ANEU, CBC, LIP #### [place] [phone] UA WBC 0-5 Abnormal None Seen [facility] ([place] Comment on above: Performed By: #### A DIFF, GFR, MDW, CMP, ANEU, CBC, LIP #### [address] [address] A1Con 02-11-2023 HbA1c (Bld) [Mass fraction] 9.0 % High 4.3-6.4 [facility] ([place] Comment on above: Performed By: #### A DIFF, GFR, MDW, CMP, ANEU, CBC, LIP #### [place] [id number] CBCon 02-11-2023 Erythrocyte distribution width (RBC) [Ratio] 14.8 % High 11.5-14.5 [facility] ([place] Comment on above: Performed By: #### A DIFF, GFR, MDW, CMP, ANEU, CBC, LIP #### [place] [address] Hematocrit (Bld) [Volume fraction] 34.6 % Low 37.0-47.0 [facility] ([place] Comment on above: Performed By: #### A DIFF, GFR, MDW, CMP, ANEU, CBC, LIP #### [address] [address] Hgb 11.5 G/dL Low 12.0-16.0 [facility] ([place] Comment on above: Performed By: #### A DIFF, GFR, MDW, CMP, ANEU, CBC, LIP #### [address] [address] MCH (RBC) [Entitic mass] 26.6 pg Low 27.0-31.2 [facility] ([place] Comment on above: Performed By: #### A DIFF, GFR, MDW, CMP, ANEU, CBC, LIP #### [address] [address] MCHC 33.3 G/dL Normal 33.0-37.0 [facility] ([place] Comment on above: Performed By: #### A DIFF, GFR, MDW, CMP, ANEU, CBC, LIP #### [address] [address] MCV (RBC) [Entitic vol] 80.0 fL Normal 80.0-94.0 A [facility] ([place]) Comment on above: Performed By: #### A DIFF, GFR, MDW, CMP, ANEU, CBC, LIP #### [address] [address] Platelet 332 10 3/mcL Normal 130-400 [facility] ([place] Comment on above: Performed By: #### A DIFF, GFR, MDW, CMP, ANEU, CBC, LIP #### [address] [address] Platelet mean volume (Bld) [Entitic vol] 7.5 fL Normal 7.4-10.4 [facility] ([place] Comment on above: Performed By: #### A DIFF, GFR, MDW, CMP, ANEU, CBC, LIP #### [address] [address] RBC 4.33 10 6/mcL Normal 4.20-5.40 [facility] ([place] Comment on above: Performed By: #### A DIFF, GFR, MDW, CMP, ANEU, CBC, LIP #### [address] [address] WBC 12.7 10 3/mcL High 4.6-10.8 [facility] ([place] Comment on above: Performed By: #### A DIFF, GFR, MDW, CMP, ANEU, CBC, LIP #### [address] [address] Erythrocyte distribution width (RBC) [Ratio] 14.9 % High 11.5-14.5 [facility] ([place] Comment on above: Performed By: #### C MP, GFR, CBC, LIP, ADIFF, ANEU, MDW #### [address] [address] Hematocrit (Bld) [Volume fraction] 38.8 % Normal 37.0-47.0 [facility] ([place] Comment on above: Performed By: #### C MP, GFR, CBC, LIP, ADIFF, ANEU, MDW #### [address] [address] Hgb 12.7 G/dL Normal 12.0-16.0 [facility] ([place] Comment on above: Performed By: #### C MP, GFR, CBC, LIP, ADIFF, ANEU, MDW #### [address] [address] MCH (RBC) [Entitic mass] 26.6 pg Low 27.0-31.2 [facility] ([place] Comment on above: Performed By: #### C MP, GFR, CBC, LIP, ADIFF, ANEU, MDW #### [address] [address] MCHC 32.8 G/dL Low 33.0-37.0 [facility] ([place] Comment on above: Performed By: #### C MP, GFR, CBC, LIP, ADIFF, ANEU, MDW #### [address] [address] MCV (RBC) [Entitic vol] 81.2 fL Normal 80.0-94.0 [facility] [facility] ([place]) Comment on above: Performed By: #### C MP, GFR, CBC, LIP, ADIFF, ANEU, MDW #### [address] [address] Platelet 385 10 3/mcL Normal 130-400 [facility] ([place]) Comment on above: Performed By: #### C MP, GFR, CBC, LIP, ADIFF, ANEU, MDW #### [address] [address] Platelet mean volume (Bld) [Entitic vol] 7.6 fL Normal 7.4-10.4 [facility] ([place] Comment on above: Performed By: #### C MP, GFR, CBC, LIP, ADIFF, ANEU, MDW #### [address] [address] RBC 4.78 10 6/mcL Normal 4.20-5.40 [facility] ([place]) Comment on above: Performed By: #### C MP, GFR, CBC, LIP, ADIFF, ANEU, MDW #### [address] [address] WBC 15.8 10 3/mcL High 4.6-10.8 [facility] ([place]) Comment on above: Performed By: #### C MP, GFR, CBC, LIP, ADIFF, ANEU, MDW #### [address] [address] CMPon 02-11-2023 ALT [Catalytic activity/Vol] 15 U/L Normal 14-59 [facility] ([place] Comment on above: Performed By: #### A DIFF, GFR, MDW, CMP, ANEU, CBC, LIP #### [address] [address] Albumin Level 3.0 G/dL Low 3.5-5.0 [facility] ([place] Comment on above: Performed By: #### A DIFF, GFR, MDW, CMP, ANEU, CBC, LIP #### [address] [address] Albumin/Globulin [Mass ratio] 0.8 {ratio} Low 1.1-2.5 [facility] ([place] Comment on above: Performed By: #### A DIFF, GFR, MDW, CMP, ANEU, CBC, LIP #### [address] [address] ALP [Catalytic activity/Vol] 78 U/L Normal 40-135 [facility] ([place] Comment on above: Performed By: #### A DIFF, GFR, MDW, CMP, ANEU, CBC, LIP #### [address] [address] AST [Catalytic activity/Vol] 17 U/L Normal 10-40 [facility] ([place] Comment on above: Performed By: #### A DIFF, GFR, MDW, CMP, ANEU, CBC, LIP #### [address] [address] Bili Total 0.6 mg/dL Normal 0.2-1.0 [facility] ([place]) Comment on above: Result Comment: Use of this assay is not recommended for patients undergoing treatment with eltrombopag due to the potential for falsely elevated results. Performed By: #### A DIFF, GFR, MDW, CMP, ANEU, CBC, LIP #### [address] [address] BUN/Creatinine Ratio 6 ratio Low 7-27 [facility] ([place]) Comment on above: Performed By: #### A DIFF, GFR, MDW, CMP, ANEU, CBC, LIP #### [address] [address] Calcium [Mass/Vol] 8.5 mg/dL Normal 8.4-10.2 [facility] ([place] Comment on above: Performed By: #### A DIFF, GFR, MDW, CMP, ANEU, CBC, LIP #### [address] [address] Chloride [Moles/Vol] 96 mmol/L Low 98-107 [facility] ([place]) Comment on above: Performed By: #### A DIFF, GFR, MDW, CMP, ANEU, CBC, LIP #### [address] [address] CO2 [Moles/Vol] 29 mmol/L Normal 22-29 [facility] ([place] Comment on above: Performed By: #### A DIFF, GFR, MDW, CMP, ANEU, CBC, LIP #### [address] [address] Creatinine [Mass/Vol] 1.21 mg/dL High 0.55-1.02 [facility] ([place]) Comment on above: Performed By: #### A DIFF, GFR, MDW, CMP, ANEU, CBC, LIP #### [address] [address] Electrolyte Balance 11.0 mEq/L Normal 4.0-15.0 [facility] ([place]) Comment on above: Performed By: #### A DIFF, GFR, MDW, CMP, ANEU, CBC, LIP #### [address] [address] Globulin 3.7 G/dL Normal [facility] ([place] Comment on above: Performed By: #### A DIFF, GFR, MDW, CMP, ANEU, CBC, LIP #### [address] [address] Glucose [Mass/Vol] 246 mg/dL High 70-105 [facility] ([place] Comment on above: Performed By: #### A DIFF, GFR, MDW, CMP, ANEU, CBC, LIP #### [address] [address] Potassium [Moles/Vol] 3.5 mmol/L Normal 3.5-5.1 [facility] ([place] Comment on above: Performed By: #### A DIFF, GFR, MDW, CMP, ANEU, CBC, LIP #### [address] [address] Sodium [Moles/Vol] 136 mmol/L Normal 136-145 [facility] ([place] Comment on above: Performed By: #### A DIFF, GFR, MDW, CMP, ANEU, CBC, LIP #### [address] [address] Total Protein 6.7 G/dL Normal 6.4-8.2 [facility] ([place] Comment on above: Performed By: #### A DIFF, GFR, MDW, CMP, ANEU, CBC, LIP #### [address] [address] Urea nitrogen [Mass/Vol] 7 mg/dL Normal 7-18 [facility] ([place] Comment on above: Performed By: #### A DIFF, GFR, MDW, CMP, ANEU, CBC, LIP #### [address] [address] Albumin Level 3.7 G/dL Normal 3.5-5.0 [facility] ([place] Comment on above: Performed By: #### A DIFF, GFR, MDW, CMP, ANEU, CBC, LIP #### [address] [address] Albumin/Globulin [Mass ratio] 0.8 {ratio} Low 1.1-2.5 [facility] ([place] Comment on above: Performed By: #### A DIFF, GFR, MDW, CMP, ANEU, CBC, LIP #### [address] [place], [place] [address] ALP [Catalytic activity/Vol] 88 U/L Normal 40-135 [facility] ([place] Comment on above: Performed By: #### A DIFF, GFR, MDW, CMP, ANEU, CBC, LIP #### [address] [address] ALT [Catalytic activity/Vol] 16 U/L Normal 14-59 [facility] ([place] Comment on above: Performed By: #### A DIFF, GFR, MDW, CMP, ANEU, CBC, LIP #### [address] [address] AST [Catalytic activity/Vol] 10 U/L Normal 10-40 [facility] ([place] Comment on above: Performed By: #### A DIFF, GFR, MDW, CMP, ANEU, CBC, LIP #### [address] [address] Bili Total 0.9 mg/dL Normal 0.2-1.0 [facility] ([place] Comment on above: Result Comment: Use of this assay is not recommended for patients undergoing treatment with eltrombopag due to the potential for falsely elevated results. Performed By: #### A DIFF, GFR, MDW, CMP, ANEU, CBC, LIP #### [address] [address] BUN/Creatinine Ratio 6 ratio Low 7-27 [facility] ([place]) Comment on above: Performed By: #### A DIFF, GFR, MDW, CMP, ANEU, CBC, LIP #### [address] [address] Calcium [Mass/Vol] 9.4 mg/dL Normal 8.4-10.2 [facility] ([place] Comment on above: Performed By: #### A DIFF, GFR, MDW, CMP, ANEU, CBC, LIP #### [address] [address] Chloride [Moles/Vol] 90 mmol/L Low 98-107 [facility] ([place]) Comment on above: Performed By: #### A DIFF, GFR, MDW, CMP, ANEU, CBC, LIP #### [address] [address] CO2 [Moles/Vol] 30 mmol/L High 22-29 [facility] ([place] Comment on above: Performed By: #### A DIFF, GFR, MDW, CMP, ANEU, CBC, LIP #### [address] [address] Creatinine [Mass/Vol] 1.45 mg/dL High 0.55-1.02 [facility] ([place] Comment on above: Performed By: #### A DIFF, GFR, MDW, CMP, ANEU, CBC, LIP #### [address] [address] Electrolyte Balance 7.0 mEq/L Normal 4.0-15.0 [facility] ([place] Comment on above: Performed By: #### A DIFF, GFR, MDW, CMP, ANEU, CBC, LIP #### [address] [address] Globulin 4.4 G/dL Normal [facility] ([place] Comment on above: Performed By: #### A DIFF, GFR, MDW, CMP, ANEU, CBC, LIP #### [address] [address] Glucose [Mass/Vol] 307 mg/dL High 70-105 [facility] ([place] Comment on above: Performed By: #### A DIFF, GFR, MDW, CMP, ANEU, CBC, LIP #### [address] [address] Potassium [Moles/Vol] 3.5 mmol/L Normal 3.5-5.1 [facility] ([place] Comment on above: Performed By: #### A DIFF, GFR, MDW, CMP, ANEU, CBC, LIP #### [address] [place], [place] [address] Sodium [Moles/Vol] 127 mmol/L Low 136-145 [facility] ([place] Comment on above: Performed By: #### A DIFF, GFR, MDW, CMP, ANEU, CBC, LIP #### [address] [place], [place] [address] Total Protein 8.1 G/dL Normal 6.4-8.2 [facility] ([place] Comment on above: Performed By: #### A DIFF, GFR, MDW, CMP, ANEU, CBC, LIP #### [address] [place], [place] [address] Urea nitrogen [Mass/Vol] 8 mg/dL Normal 7-18 [facility] ([place] Comment on above: Performed By: #### A DIFF, GFR, MDW, CMP, ANEU, CBC, LIP #### [address] [place], [place] [address] LABORATORYOrdered By: Harriet logan on 02-11-2023 Blood Glucose Testing Reason Routine (02/11/23 4:15 PM) [facility] Work Phone: Glucose [Mass/Vol] 203 mg/dL Invalid Interpretation Code 70 - 110 mg/dL [facility] Work Phone: Blood Glucose Testing Reason Routine (02/11/23 7:15 AM) [facility] Work Phone: Glucose [Mass/Vol] 237 mg/dL Invalid Interpretation Code 70 - 110 mg/dL [facility] Work Phone: LABORATORYOrdered By: Manjinder Boogie on 02-11-2023 Blood Glucose Testing Reason Routine (02/11/23 12:04 PM) [facility] Work Phone: Glucose [Mass/Vol] 220 mg/dL Invalid Interpretation Code 70 - 110 mg/dL [facility] Work Phone: LABORATORYOrdered By: SYSTEM SYSTEM [...] Lactic Acid Lvl 1.7 mmol/L Normal 0.4-2.0 [facility] ([place] Comment on above: Performed By: #### A DIFF, GFR, MDW, CMP, ANEU, CBC, LIP #### [address] [address] LIPon 02-11-2023 Lipase Level 39 U/L Normal 16-77 [facility] ([place] Comment on above: Performed By: #### A DIFF, GFR, MDW, CMP, ANEU, CBC, LIP #### [address] [address] MGon 02-11-2023 Magnesium [Mass/Vol] 2.1 mg/dL Normal 1.8-2.4 [facility]) Comment on above: Performed By: #### A DIFF, GFR, MDW, CMP, ANEU, CBC, LIP #### [address] [address] NM GASTRIC EMPTYING STUDYon 02-11-2023 NM GASTRIC [...] 02/11/2023 3:41:00 PM Ordering Provider: MARTI WEBB [facility] ([place]) No Panel Informationon 02-11 Microscopic examination of blood, culture Culture has been received in lab and is no growth to date. Routine cultures are held for 5 days. [facility] Work Phone: PREGUon 02-11-2023 HCG ( test) Ql (U) Negative Normal [facility] ([place] Comment on above: Performed By: #### A DIFF, GFR, MDW, CMP, ANEU, CBC, LIP #### [address] [address] test (u) int Not detected Invalid Interpretation Code [facility] ([place] Comment on above: Performed By: #### A DIFF, GFR, MDW, CMP, ANEU, CBC, LIP #### [address] [address] TOXSCon 02-11-2023 U Ampheta (AO) Negative Normal [facility] ([place] Comment on above: Performed By: #### A DIFF, GFR, MDW, CMP, ANEU, CBC, LIP #### [address] [place], [place] [address] U Marifer (AO) Negative Normal [facility] ([place] Comment on above: Performed By: #### A DIFF, GFR, MDW, CMP, ANEU, CBC, LIP #### [address] [address] U Ayan (AO) Negative [facility] ([place] Comment on above: Performed By: #### A DIFF, GFR, MDW, CMP, ANEU, CBC, LIP #### [address] [address] U Cannab (AO) Positive [facility] ([place] Comment on above: Performed By: #### A DIFF, GFR, MDW, CMP, ANEU, CBC, LIP #### [address] [address] U Cocaine (AO) Negative [facility] ([place] Comment on above: Performed By: #### A DIFF, GFR, MDW, CMP, ANEU, CBC, LIP #### [address] [address] U Methadone (AO) Negative [facility] ([place] Comment on above: Performed By: #### A DIFF, GFR, MDW, CMP, ANEU, CBC, LIP #### [address] [address] U PCP (AO) Negative [facility] ([place] Comment on above: Performed By: #### A DIFF, GFR, MDW, CMP, ANEU, CBC, LIP #### [address] [address] U TCA (AO) Negative [facility] ([place] Comment on above: Performed By: #### A DIFF, GFR, MDW, CMP, ANEU, CBC, LIP #### [address] [address] Urine Opiates (AO) Positive [facility] ([place] Comment on above: Performed By: #### A DIFF, GFR, MDW, CMP, ANEU, CBC, LIP #### [address] [address] UAon 02-11-2023 Color (U) Yellow [facility] ([place] Comment on above: Performed By: #### A DIFF, GFR, MDW, CMP, ANEU, CBC, LIP #### [address] [address] Glucose (U) [Mass/Vol] 100 mg/dL Abnormal Negative Counts include 234 beds at the [facility] ([place]) Comment on above: Performed By: #### A DIFF, GFR, MDW, CMP, ANEU, CBC, LIP #### [address] [address] Ketones Ql (U) Negative Normal Negative [facility] ([place] Comment on above: Performed By: #### A DIFF, GFR, MDW, CMP, ANEU, CBC, LIP #### [address] [address] UA Appear Clear Normal Clear [facility] ([place] Comment on above: Performed By: #### A DIFF, GFR, MDW, CMP, ANEU, CBC, LIP #### [address] [address] UA Blood Trace Abnormal Negative [facility] ([place] Comment on above: Performed By: #### A DIFF, GFR, MDW, CMP, ANEU, CBC, LIP #### [address] [address] UA Leuk Est Negative Normal Negative [facility] ([place] Comment on above: Performed By: #### A DIFF, GFR, MDW, CMP, ANEU, CBC, LIP #### [address] [address] UA Nitrite Negative Normal Negative [facility] ([place] Comment on above: Performed By: #### A DIFF, GFR, MDW, CMP, ANEU, CBC, LIP #### [address] [address] UA pH 7.0 Normal 5.0 - 8.0 [facility] ([place] Comment on above: Performed By: #### A DIFF, GFR, MDW, CMP, ANEU, CBC, LIP #### [address] [address] UA Protein Negative Normal Negative [facility] ([place] Comment on above: Performed By: #### A DIFF, GFR, MDW, CMP, ANEU, CBC, LIP #### [address] [address] UA Spec Grav 1.015 Normal 1.015-1.025 [facility] ([place] Comment on above: Performed By: #### A DIFF, GFR, MDW, CMP, ANEU, CBC, LIP #### [address] UA Specimen Type Void Normal [facility] ([place] Comment on above: Performed By: #### A DIFF, GFR, MDW, CMP, ANEU, CBC, LIP #### [address] UA Urobilinogen 0.2 E.U./dL Normal 0.2-1.0 [facility] ([place] Comment on above: Performed By: #### A DIFF, GFR, MDW, CMP, ANEU, CBC, LIP #### [place] [address] Urobilinogen (U) [Mass/Vol] Negative Normal Negative [facility] ([place] Comment on above: Performed By: #### A DIFF, GFR, MDW, CMP, ANEU, CBC, LIP #### [address] [address] Color (U) Yellow Normal [facility] ([place] Comment on above: Performed By: #### A DIFF, GFR, MDW, CMP, ANEU, CBC, LIP #### [address] [address] Glucose (U) [Mass/Vol] 100 mg/dL Abnormal Negative Counts include 234 beds at the [facility] ([place] Comment on above: Performed By: #### A DIFF, GFR, MDW, CMP, ANEU, CBC, LIP #### [address] Ketones Ql (U) 15 mg/dL Abnormal Negative [facility] ([place] Comment on above: Performed By: #### A DIFF, GFR, MDW, CMP, ANEU, CBC, LIP #### [address] [address] UA Appear Clear Normal Clear [facility] ([place] Comment on above: Performed By: #### A DIFF, GFR, MDW, CMP, ANEU, CBC, LIP #### [address] [address] UA Blood Trace Abnormal Negative [facility] ([place] Comment on above: Performed By: #### A DIFF, GFR, MDW, CMP, ANEU, CBC, LIP #### [address] [address] UA Leuk Est Trace Abnormal Negative [facility] ([place] Comment on above: Performed By: #### A DIFF, GFR, MDW, CMP, ANEU, CBC, LIP #### [address] [address] UA Nitrite Negative Normal Negative [facility] ([place] Comment on above: Performed By: #### A DIFF, GFR, MDW, CMP, ANEU, CBC, LIP #### [address] [address] UA pH 5.5 Normal 5.0 - 8.0 [facility] ([place] Comment on above: Performed By: #### A DIFF, GFR, MDW, CMP, ANEU, CBC, LIP #### [address] [address] UA Protein Negative Normal Negative [facility] ([place] Comment on above: Performed By: #### A DIFF, GFR, MDW, CMP, ANEU, CBC, LIP #### [address] [address] UA Spec Grav <=1.005 Abnormal 1.015-1.025 [facility] ([place] Comment on above: Performed By: #### A DIFF, GFR, MDW, CMP, ANEU, CBC, LIP #### [address] [address] UA Specimen Type Clean Catch Normal [facility] ([place] Comment on above: Performed By: #### A DIFF, GFR, MDW, CMP, ANEU, CBC, LIP #### [address] [place], [place] [address] UA Urobilinogen 0.2 E.U./dL Normal 0.2-1.0 [facility] ([place] Comment on above: Performed By: #### A DIFF, GFR, MDW, CMP, ANEU, CBC, LIP #### [address] [place], [place] [address] Urobilinogen (U) [Mass/Vol] Negative Normal Negative [facility] ([place] Comment on above: Performed By: #### A DIFF, GFR, MDW, CMP, ANEU, CBC, LIP #### [address] [place], [place] [address] US ABDOMEN COMPLETEon 2022 US ABDOMEN COMPLETE [...] 02/11/2023 1:29:01 PM Ordering Provider: MARTI Maldonado [facility] ([place] PELVIS NON-OB W/TRANSVAGI NALon 02-11-2023 US [...] 02/11/2023 12:11:13 PM Ordering Provider: MARTI WEBB [facility] ([place]) XR ABDOMEN APon 02-11-2023 XR ABDOMEN AP [...] 02/11/2023 9:28:54 AM Ordering Provider: MARTI WEBB [facility] ([place]) LABORATORYOrdered By: SYSTEM SYSTEM on 02-10-2023 Albumin [...] Auto (Unsp spec) [#/Vol] 1.67 10*3/uL 0.83-4.51 [facility] Amorphous sediment detection in urine sediment by light microscopyOrdered By: Javy Doss on 02-08-2023 Amorphous sediment LM Ql (Urine sed) 3+ PHOS [facility] Basophil percentageOrdered B y: Javy Doss on 02-08-2023 Basophil percentage 0-5 SEEN /hpf 0-5 [facility] Basophil percentage 325 mg/dL 74-106 [facility] Basophil percentage 9.2 g/dL 6.4-8.2 [facility] Basophil percentage 0.70 mg/dL 0.20-1.00 [facility] Basophil percentage 134 mmol/L 136-145 [facility] Basophil percentage 3.7 mmol/L 3.5-5.1 [facility] Basophil percentage 96 mmol/L 98-107 [facility] Basophils (Bld) [#/Vol] 9.1 10*3/uL 4.4-11.0 [facility] Basophils (Bld) [#/Vol] 7.0 10*3/uL 2.0-7.7 [facility] Basophils/100 WBC (Bld) 0.2 % 0-1 [facility] Basophils/100 WBC (Bld) 77.0 % 47-70 [facility] Basophils/100 WBC (Bld) 0.0 % 0-5 [facility] Bilirubin [Mass/Vol] 0.70 mg/dL 0.20-1.00 [facility] Comment on above: For patients on eltr ombopag therapy, use of [employer] [place] TBIL is not recommended. Chloride [Moles/Vol] 96 mmol/L 98-107 [facility] Eosinophils/100 WBC (Bld) 0.0 % 0-5 [facility] Glucose [Mass/Vol] 325 mg/dL 74-106 [facility] Comment on above: Glucose result great er than or equal to 200 mg/dLsuggests DIABETES MELLITUS per A.D.A. criteria. Neutrophils (Bld) [#/Vol] 7.0 10*3/uL 2.0-7.7 [facility] Neutrophils/100 WBC (Bld) 77.0 % 47-70 [facility] Potassium [Moles/Vol] 3.7 mmol/L 3.5-5.1 [facility] Protein [Mass/Vol] 9.2 g/dL 6.4-8.2 [facility] Sodium [Moles/Vol] 134 mmol/L 136-145 [facility] WBC (Bld) [#/Vol] 9.1 10*3/uL 4.4-11.0 [facility] Beta hCG serum qualOrdered B y: Javy Doss on 02-08-2023 Beta HCG ( test) Ql Negative [facility] Bilirubin Test strip Ql (U)O rdered By: Javy Doss on 02-08-2023 Bilirubin Ql (U) Negative Negative [facility] Blood erythrocytes count (nu mber/volume)Ordered By: Javy Doss on 02-08-2023 RBC (Bld) [#/Vol] 5.27 10*6/uL 4.2-5.4 [facility] Blood hemoglobin measurement (mass/volume)Ordered By: Javy Doss on 02-08-2023 Hemoglobin (Bld) [Mass/Vol] 13.9 g/dL 12.0-15.0 [facility] Blood lymphocytes/100 leukoc ytesOrdered By: Javy Doss on 02-08-2023 Lymphocytes/100 WBC (Bld) 18.4 % 19-41 [facility] Blood monocytes/100 leukocyt esOrdered By: Javy Doss on 02-08-2023 Monocytes/100 WBC (Bld) 3.6 % 0-10 [facility] Blood platelet mean volumeOr dered By: Javy Doss on 02-08-2023 Platelet mean volume (Bld) [Entitic vol] 9.3 fL 6.2-12.0 [facility] Determination of erythrocyte mean corpuscular volume (MCV)Ordered By: Javy Doss on 02-08-2023 MCV (RBC) [Entitic vol] 81.2 fL 81-99 [facility] Hematocrit Auto (Bld) [Volum e fraction]Ordered By: Javy Doss on 02-08-2023 Hematocrit (Bld) [Volume fraction] 42.8 % 37-47 [facility] Ketones Test strip Ql (U)Ord ered [facility] on 02-08-2023 Ketones Ql (U) 50 mg/dl Negative [facility] Laboratory - Chemistry and C hemistry - challengeOrdered By: [facility] Cent[facility] on 02-08-2023 ALP [Catalytic activity/Vol] 105 U/L 45-117 [facility] ALT [Catalytic activity/Vol] 24 U/L 13-56 [facility] CO2 [Moles/Vol] 30.0 mmol/L 21.0-32.0 [facility] Globulin (S) [Mass/Vol] 5.4 g/dL 2.2-4.2 [facility] Lipase [Catalytic activity/Vol] 38 U/L 13-75 [facility] Comment on above: Please note:LIPASE r evised reference range effective 22. New Lipase methodology. Expected to produce lower values than the previous assay method. NEW Reference Range: 13 - 75 U/L Urea nitrogen/Creatinine [Mass ratio] 7.4 mg/mg 10-20 [facility] Laboratory - Hematology and Cell countsOrdered By: Nye Romario on 02-08-2023 Erythrocyte distribution width (RBC) [Entitic vol] 39.1 fL 35.1-43.9 [facility] Erythrocyte distribution width (RBC) [Ratio] 13.3 % 11.6-14.6 [facility] Immature granulocytes/100 WBC (Bld) 0.800 % 0.0-0.9 [facility] Comment on above: IG% - Immature Granu locytes (promyelocytes, myelocytes and metamyelocytes) > 1% indicates that a LEFT SHIFT is Present. MCH (RBC) [Entitic mass] 26.4 pg 27.0-32.0 [facility] Nucleated RBC/100 WBC (Bld) [Ratio] 0 % 0-5 [facility] MCHC Auto (RBC) [Mass/Vol]Or dered By: Javy Doss on 02-08-2023 MCHC (RBC) [Mass/Vol] 32.5 g/dL 32-36 [facility] Mucus LM Ql (Urine sed)Order ed By: Javy Doss on 02-08-2023 Mucus Ql (Urine sed) 0 SEEN /hpf [facility] Nitrite Test strip Ql (U)Ord ered By: Javy Doss on 02-08-2023 Nitrite Ql (U) Negative Negative [facility] No Panel InformationOrdered By: Javy Doss on 02-08-2023 Estimated Creatinine Clearance Calc 62.55 ml/min [facility] Estimated GFR (MDRD) Amer 66 mL/min >60 [facility] Comment on above: GFR Calc Estimated GFR (MDRD) Non-Af Amer 55 mL/min >60 [facility] Comment on above: Non- GFR Calc 26.4 pg 27.0-32.0 [facility] 13.3 % 11.6-14.6 [facility] 39.1 fl 35.1-43.9 [facility] 0.800 % 0.0-0.9 [facility] 0 % 0-5 [facility] 55 mL/min >60 [facility] 66 mL/min >60 [facility] 62.55 ml/min [facility] 7.4 RATIO 10-20 [facility] 5.4 g/dL 2.2-4.2 [facility] 38 U/L 13-75 [facility] 105 U/L 45-117 [facility] 24 U/L 13-56 [facility] 30.0 mmol/L 21.0-32.0 [facility] Platelets bldOrdered By: Haylee Doss on 02-08-2023 Platelets (Bld) [#/Vol] 394 10*3/uL 150-450 [facility] Protein Test strip Ql (U)Ord ered By: Remus Doss on 02-08-2023 Protein Ql (U) 30 mg/dl Negative [facility] Serum or plasma albumin hussein urement (mass/volume)Ordered By: Remus Doss on 02-08-2023 Albumin [Mass/Vol] 3.8 g/dL 3.2-5.0 [facility] Serum or plasma albumin/glob ulin mass ratioOrdered By: Rem Ungmeño on 02-08-2023 Albumin/Globulin [Mass ratio] 0.7 {ratio} 0.9-2.4 [facility] Serum or plasma calcium hussein urement (mass/volume)Ordered By: Rem Ungmeño on 02-08-2023 Calcium [Mass/Vol] 9.7 mg/dL 8.5-10.1 [facility] Serum or plasma creatinine m easurement (mass/volume)Ordered By: Remus Doss on 02-08-2023 Creatinine [Mass/Vol] 1.22 mg/dL 0.55-1.02 [facility] Comment on above: The validity of the calculated GFR & GFRAA in patients over 70 years has not been determined. Clinical correlation is essential. Serum or plasma urea nitroge n measurement (mass/volume)Ordered By: Remus Doss on 02-08-2023 Urea nitrogen [Mass/Vol] 9 mg/dL 7-18 [facility] Squamous epithelial cells de tection in urine sediment by light microscopyOrdered By: Javy Doss on 02-08-2023 Epithelial cells.squamous LM Ql (Urine sed) 0-5 SEEN /hpf 5-10 [facility] Thin prep Papanicolaou smear with manual screeningOrdered By: Remus Doss on 02-08-2023 Thin prep Papanicolaou smear with manual screening 15 U/L 15-37 [facility] Thin prep Papanicolaou smear with manual screening 8 5-15 [facility] Urine blood detectionOrdered By: Rem Ungmeño on 02-08-2023 RBC Ql (U) Negative Negative [facility] RBC Ql (U) 0 SEEN /hpf 0-5 [facility] Urine clarityOrdered By: Rem us Doss on 02-08-2023 Clarity (U) Sl. Cloudy Clear [facility] Urine color determinationOrd ered By: Remus Doss on 02-08-2023 Color (U) Yellow Yellow [facility] Urine glucose detectionOrder ed By: Javy Doss on 02-08-2023 Glucose Ql (U) 1000 mg/dl Normal [facility] Urine leukocyte esterase det ection by dipstickOrdered By: Javy Doss on 02-08-2023 Leukocyte esterase Test strip Ql (U) 25 /ul Negative [facility] Urine pHOrdered By: Javy Tee gur on 02-08-2023 pH (U) 8.0 [pH] 5.0 - 8.0 [facility] Urine sediment bacteria coun t by microscopy (number/high power field)Ordered By: Javy Doss on 02-08-2023 Bacteria LM.HPF (Urine sed) [#/Area] 0 /[HPF] None Seen [facility] Urine specific gravity measu rementOrdered By: Javy Doss on 02-08-2023 Specific gravity (U) [Rel density] 1.010 1.002-1.030 [facility] Urobilinogen Auto test strip Ql (U)Ordered By: Javy Doss on 02-08-2023 Urobilinogen Ql (U) Normal mg/dl Normal [facility] Absolute lymphocyte countOrd ered By: Fabricio Guevara on 02-04-2023 Lymphocytes Auto (Unsp spec) [#/Vol] 3.25 10*3/uL 0.83-4.51 [facility] Basophil percentageOrdered B y: Fabricio Guevara on 02-04-2023 Basophil percentage 259 mg/dL 74-106 [facility] Basophil percentage 8.1 g/dL 6.4-8.2 [facility] Basophil percentage 0.40 mg/dL 0.20-1.00 [facility] Basophil percentage 138 mmol/L 136-145 [facility] Basophil percentage 3.5 mmol/L 3.5-5.1 [facility] Basophil percentage 103 mmol/L 98-107 [facility] Basophils (Bld) [#/Vol] 8.8 10*3/uL 4.4-11.0 [facility] Basophils (Bld) [#/Vol] 4.9 10*3/uL 2.0-7.7 [facility] Basophils/100 WBC (Bld) 0.3 % 0-1 [facility] Basophils/100 WBC (Bld) 55.7 % 47-70 [facility] Basophils/100 WBC (Bld) 0.5 % 0-5 [facility] Bilirubin [Mass/Vol] 0.40 mg/dL 0.20-1.00 [facility] Comment on above: For patients on eltr ombopag therapy, use of [employer] [place] TBIL is not recommended. Chloride [Moles/Vol] 103 mmol/L 98-107 [facility] Eosinophils/100 WBC (Bld) 0.5 % 0-5 [facility] Glucose [Mass/Vol] 259 mg/dL 74-106 [facility] Comment on above: Glucose result great er than or equal to 200 mg/dLsuggests DIABETES MELLITUS per A.D.A. criteria. Neutrophils (Bld) [#/Vol] 4.9 10*3/uL 2.0-7.7 [facility] Neutrophils/100 WBC (Bld) 55.7 % 47-70 [facility] Potassium [Moles/Vol] 3.5 mmol/L 3.5-5.1 [facility] Protein [Mass/Vol] 8.1 g/dL 6.4-8.2 [facility] Sodium [Moles/Vol] 138 mmol/L 136-145 [facility] WBC (Bld) [#/Vol] 8.8 10*3/uL 4.4-11.0 [facility] Blood erythrocytes count (nu mber/volume)Ordered By: Fabricio Guevara on 02-04-2023 RBC (Bld) [#/Vol] 4.65 10*6/uL 4.2-5.4 [facility] Blood hemoglobin measurement (mass/volume)Ordered By: Fabricio Guevara on 02-04-2023 Hemoglobin (Bld) [Mass/Vol] 12.5 g/dL 12.0-15.0 [facility] Blood lymphocytes/100 leukoc ytesOrdered By: Fabricio Guevara on 02-04-2023 Lymphocytes/100 WBC (Bld) 37.0 % 19-41 [facility] Blood monocytes/100 leukocyt esOrdered By: Fabricio Guevara on 07-27-2023 Monocytes/100 WBC (Bld) 5.8 % 0-10 [facility] Blood platelet mean volumeOr dered By: Fabricio Guevara on 02-04-2023 Platelet mean volume (Bld) [Entitic vol] 9.4 fL 6.2-12.0 [facility] Determination of erythrocyte mean corpuscular volume (MCV)Ordered By: Fabricio Guevara on 02-04-2023 MCV (RBC) [Entitic vol] 80.0 fL 81-99 [facility] Hematocrit Auto (Bld) [Volum e fraction]Ordered By: Fabricio Guevara on 02-04-2023 Hematocrit (Bld) [Volume fraction] 37.2 % 37-47 [facility] Laboratory - Chemistry and C hemistry - challengeOrdered By: Fabricio Guevara on 02-04-2023 ALP [Catalytic activity/Vol] 94 U/L 45-117 [facility] ALT [Catalytic activity/Vol] 29 U/L 13-56 [facility] CO2 [Moles/Vol] 25.0 mmol/L 21.0-32.0 [facility] Globulin (S) [Mass/Vol] 4.7 g/dL 2.2-4.2 [facility] Lipase [Catalytic activity/Vol] 51 U/L 13-75 [facility] Comment on above: Please note:LIPASE r evised reference range effective 22. New Lipase methodology. Expected to produce lower values than the previous assay method. NEW Reference Range: 13 - 75 U/L Urea nitrogen/Creatinine [Mass ratio] 7.0 mg/mg 10-20 [facility] Laboratory - Hematology and Cell countsOrdered By: Fabricio Guevara on 02-04-2023 Erythrocyte distribution width (RBC) [Entitic vol] 39.2 fL 35.1-43.9 [facility] Erythrocyte distribution width (RBC) [Ratio] 13.6 % 11.6-14.6 [facility] Immature granulocytes/100 WBC (Bld) 0.700 % 0.0-0.9 [facility] Comment on above: IG% - Immature Granu locytes (promyelocytes, myelocytes and metamyelocytes) > 1% indicates that a LEFT SHIFT is Present. MCH (RBC) [Entitic mass] 26.9 pg 27.0-32.0 [facility] Nucleated RBC/100 WBC (Bld) [Ratio] 0 % 0-5 [facility] MCHC Auto (RBC) [Mass/Vol]Or dered By: Fabricio Guevara on 02-04-2023 MCHC (RBC) [Mass/Vol] 33.6 g/dL 32-36 [facility] No Panel InformationOrdered By: Fabricio Guevara on 02-04-2023 Estimated GFR (MDRD) Amer 84 mL/min >60 [facility] Estimated GFR (MDRD) Non-Af Amer 69 mL/min >60 [facility] 26.9 pg 27.0-32.0 [facility] 13.6 % 11.6-14.6 [facility] 39.2 fl 35.1-43.9 [facility] 0.700 % 0.0-0.9 [facility] 0 % 0-5 [facility] 69 mL/min >60 [facility] 84 mL/min >60 [facility] 7.0 RATIO 10-20 [facility] 4.7 g/dL 2.2-4.2 [facility] 51 U/L 13-75 [facility] 94 U/L 45-117 [facility] 29 U/L 13-56 [facility] 25.0 mmol/L 21.0-32.0 [facility] Platelets bldOrdered By: Chidi Guevara on 02-04-2023 Platelets (Bld) [#/Vol] 358 10*3/uL 150-450 [facility] Serum or plasma albumin hussein urement (mass/volume)Ordered By: Fabricio Guevara on 02-04-2023 Albumin [Mass/Vol] 3.4 g/dL 3.2-5.0 [facility] Serum or plasma albumin/glob ulin mass ratioOrdered By: Fabricio Guevara on 02-04-2023 Albumin/Globulin [Mass ratio] 0.7 {ratio} 0.9-2.4 [facility] Serum or plasma calcium hussein urement (mass/volume)Ordered By: Fabricio Guevara on 02-04-2023 Calcium [Mass/Vol] 9.2 mg/dL 8.5-10.1 [facility] Serum or plasma creatinine m easurement (mass/volume)Ordered By: Fabricio Guevara on 07-27-2023 Creatinine [Mass/Vol] 1.00 mg/dL 0.55-1.02 [facility] Comment on above: The validity of the calculated GFR & GFRAA in patients over 70 years has not been determined. Clinical correlation is essential. Serum or plasma urea nitroge n measurement (mass/volume)Ordered By: Fabricio Guevara on 02-04-2023 Urea nitrogen [Mass/Vol] 7 mg/dL 7-18 [facility] Thin prep Papanicolaou smear with manual screeningOrdered By: Fabricio Guevara on 02-04-2023 Thin prep Papanicolaou smear with manual screening 18 U/L 15-37 [facility] Thin prep Papanicolaou smear with manual screening 10 5-15 [facility] CBC W Auto Differential pane l (Bld)Ordered By: Yashira Cleaning on 01-24-2023 Basophils (Bld) [#/Vol] 0.0 10*3/uL 0.0 - 0.2 10*3/uL [facility] ([place]) Basophils/100 WBC (Bld) 0.3 % 0.0 - 2.0 % [facility] ([place]) Eosinophils (Bld) [#/Vol] 0.0 10*3/uL 0.0 - 0.5 10*3/uL [facility] ([place]) Eosinophils/100 WBC (Bld) 0.3 % Low 1.0 - 6.0 % [facility] ([place]) Erythrocyte distribution width (RBC) [Ratio] 13.9 % 11.5 - 14.5 % [facility] ([place]) Hematocrit (Bld) [Volume fraction] 37.2 % 35.0 - 47.0 % [facility] ([place]) Hemoglobin (Bld) [Mass/Vol] 12.4 g/dL 11.7 - 16.0 g/dL [facility] ([place]) Immature granulocytes (Bld) [#/Vol] 0.1 10*3/uL High NINF - 0.0 10*3/uL [facility] ([place]) Immature granulocytes/100 WBC (Bld) 0.6 % High NINF - 0.0 % [facility] ([place]) Interpretation and review of laboratory results Abnormal [facility] ([place]) Lymphocytes (Bld) [#/Vol] 2.6 10*3/uL 1.0 - 4.3 10*3/uL [facility] Lymphocytes/100 WBC (Bld) 33.6 % 20.0 - 40.0 % [facility] ([place]) MCH (RBC) [Entitic mass] 26.3 pg 26.0 - 34.0 pg [facility] MCHC (RBC) [Mass/Vol] 33.3 % 32.0 - 36.0 % [facility] MCV (RBC) [Entitic vol] 79.0 fL Low 80.0 - 98.0 fL [facility] Monocytes (Bld) [#/Vol] 0.5 10*3/uL 0.0 - 0.8 10*3/uL [facility] Monocytes/100 WBC (Bld) 5.9 % 2.0 - 10.0 % [facility] Neutrophils (Bld) [#/Vol] 4.6 10*3/uL 1.8 - 7.0 10*3/uL [facility] Neutrophils/100 WBC (Bld) 59.3 % 40.0 - 80.0 % [facility] Platelet mean volume (Bld) [Entitic vol] 9.1 fL 7.4 - 12.4 fL [facility] Comment on above: MPV is a calculated measurement using platelet volume ratio Platelets (Bld) [#/Vol] 342 10*3/uL 140 - 440 10*3/uL [facility] RBC (Bld) [#/Vol] 4.71 10*6/uL 3.8 - 5.20 10*6/uL [facility] WBC (Bld) [#/Vol] 7.8 10*3/uL 3.6 - 10.7 10*3/uL [facility] Comprehensive metabolic 1998 panelon 01-24-2023 Albumin [Mass/Vol] 4.2 g/dL 3.5 - 5.0 g/dL [facility] ALP [Catalytic activity/Vol] 74 U/L 38 - 126 U/L [facility] ALT [Catalytic activity/Vol] 20 U/L 0 - 34 U/L [facility] Anion gap [Moles/Vol] 10 mmol/L 3 - 13 mmol/L [facility] AST [Catalytic activity/Vol] 28 U/L 15 - 46 U/L [facility] Bilirubin [Mass/Vol] 0.7 mg/dL 0.2 - 1 .3 mg/dL [facility] Calcium [Mass/Vol] 9.4 mg/dL 8.4 - 10. 4 mg/dL [facility] Chloride [Moles/Vol] 100 mmol/L 98 - 10 7 mmol/L [facility] CO2 [Moles/Vol] 25 mmol/L 22 - 30 mmol/L [facility] Creatinine [Mass/Vol] 0.78 mg/dL 0.52 - 1.04 mg/dL [facility] GFR/1.73 sq M.predicted MDRD (S/P/Bld) [Vol rate/Area] - PINF [facility] Comment on above: Calculation based on the Chronic Kidney Disease Epidemiology Collaboration (CKD-EPI) equation refit without adjustment for race Glucose [Mass/Vol] 220 mg/dL High 70 - 100 mg/dL [facility] Interpretation and review of laboratory results Abnormal [facility] Potassium [Moles/Vol] 3.6 mmol/L 3.5 - 5.1 mmol/L [facility] Protein [Mass/Vol] 8.1 g/dL 6.3 - 8.2 g/dL [facility] Sodium [Moles/Vol] 135 mmol/L 135 - 145 mmol/L [facility] Urea nitrogen [Mass/Vol] 9 mg/dL 7 - 17 mg/dL [facility] ECG 12-LEADon 01-24-2023 ECG 12-LEAD IMPRESSION: SINUS RHYTHM VENTRICULAR PREMATURE COMPLEX CONSIDER LEFT VENTRICULAR HYPERTROPHY No previous ECG available for comparison Electronically Signed On 01-24-2023 11:21:48 EDT by Abdirizak Ramirez [facility] ED Nursing Noteon 01-24-2023 ED Nursing Note Patient to room 15 w ith c/o vomiting for 3 weeks. Patient reports being at [facility] and being told it was [facility], and there was nothing more they could do for her. Patient reports having Zofran at home that she doesn't take, because it has not relieved her symptoms. V/S obtained, call light within reach. Normal [facility] ED Provider Noteon ED Provider Note [facility] ED EMERGENCY DEPARTMENT ENCOUNTER Pt Name: Ghislaine [...] - Normal (more content not included)... Normal [facility] Laboratory - Chemistry and C hemistry - challengeon 01-24-2023 Troponin I.cardiac [Mass/Vol] ng/mL 0.000 - 0.034 ng/mL [facility] Lipase [Catalytic activity/Vol] 130 U/L 23 - 300 U/L [facility] Magnesium [Mass/Vol] 1.8 mg/dL 1.6 - 2 .3 mg/dL [facility] Beta HCG ( test) Ql Negative Negative [facility] Comment on above: Please note: Very di lute urine specimens, as indicated by a low specific gravity, may not contain sales representative metals levels of hCG. If is still suspected, a first morning urine specimen should be collected 48 hours later and tested. Beta HCG ( test) Ql (U) is the most common reason for HCG in urine, although choriocarcinoma, hydatidiform mole, and certain nontrophoblastic malignancies also result in detectable urinary HCG levels. Sensitivity = 20mIU/mL. [facility] No Panel Informationon 01-24 P [place] -3 degrees [facility] ME Interval 128 ms [facility] QRS [place] -11 degrees [facility] QRSD Interval 86 ms [facility]val 396 ms [facility] QTC Interval 425 ms [facility] T Wave [place] 8 degrees [facility] SINUS RHYTHM VENTRICULAR PREMATURE COMPLEX CONSIDER LEFT VENTRICULAR HYPERTROPHY No previous ECG available for comparison Electronically Signed On 01-24-2023 11:21:48 EDT by Abdirizak Ramirez CV Abdirizak Camacho MD - 01/24/2023 IMPRESSION: SINUS RHYTHM VENTRICULAR PREMATURE COMPLEX CONSIDER LEFT VENTRICULAR HYPERTROPHY No previous ECG available for comparison Electronically Signed On 01-24-2023 11:21:48 EDT by Abdirizak Ramirez [facility] Interpretation and review of laboratory results Normal [facility] Troponin I.cardiac [Mass/Vol ]on 01-24-2023 Interpretation and review of laboratory results Normal [facility] Patients with high levels of Biotin oral intake (ie >5 mg/day) may have falsely decreased Troponin levels. [facility] Urinalysis complete panel (U )on 01-24-2023 Amorphous Crystals, Urine Few Abnormal Negative /HPF [facility] Bacteria LM.HPF (Urine sed) [#/Area] Few Abnormal Negative /HPF [facility] Bilirubin Ql (U) Negative Negative mg/dL [facility] Clarity (U) Turbid Abnormal Clear [facility] Color (U) Yellow Lt. Yellow [facility] Epithelial cells.squamous LM.HPF (Urine sed) [#/Area] 11-25 Abnormal [facility] Glucose Ql (U) 500 mg/dL Abnormal Normal (<70) [facility] Hemoglobin Ql (U) Negative Negative mg/dL [facility] Interpretation and review of laboratory results Abnormal [facility] Ketones (U) [Mass/Vol] 20 mg/dL Abnormal Negative [facility] Leukocyte esterase Test strip Ql (U) 250 Abnormal Negative [place]/uL [facility] Mucus LM.HPF (Urine sed) [#/Area] Few Negative /LPF [facility] Nitrite Ql (U) Negative Negative [facility] th pH (U) 6.5 [pH] 5.0 - 8.0 pH [facility] Protein (U) [Mass/Vol] 20 mg/dL Abnormal Negative [facility] RBC LM.HPF (Urine sed) [#/Area] 0-2 [facility] Specific gravity (U) [Rel density] 1.016 1.005 - 1.030 [facility] Urobilinogen (U) [Mass/Vol] Normal Normal (0-1) mg/dL [facility] Volume, Urine 12 mL [facility] WBC LM.HPF (Urine sed) [#/Area] 6-10 Abnormal [facility] Vital signson 01-24-2023 Heart rate 69 /min bpm [facility] CBC + DIFFon 01-17-2023 Baso # 0.00 x10EE3/UL Normal 0.00 - 0.10 [facility] Comment on above: Performed By: #### 2 [id number] #### [address] [address] Basophils/100 WBC (Bld) 0.4 % Normal 0.0 - 2.0 [facility] Comment on above: Performed By: #### 2 [id number] #### [facility],[address] [place] [address] CBC + DIFF Normal [facility] Comment on above: Result Comment: CBC- COMPLETE BLOOD COUNT Performed By: #### 2 [id number] #### [facility],[address] [place] [address] EO # 0.00 x10EE3/UL Normal 0.00 - 0.50 [facility] Comment on above: Performed By: #### 2 [id number] #### [facility],[address] [place] [address] Eosinophils/100 WBC (Bld) 0.3 % Normal 0.0 - 7.0 [facility] Comment on above: Performed By: #### 2 [id number] #### [facility],[address] [place] [address] Erythrocyte distribution width (RBC) [Ratio] 15.2 % Normal 12.0 - 15.6 [facility] Comment on above: Performed By: #### 2 [id number] #### [facility],[address] [place] [address] Hematocrit (Bld) [Volume fraction] 40.9 % Normal 34.0 - 46.0 [facility] Comment on above: Performed By: #### 2 [id number] #### [facility],[address] [place] [address] Hemoglobin (Bld) [Mass/Vol] 13.6 g/dL Normal 12.0 - 16.0 [facility] Comment on above: Performed By: #### 2 84868 #### [facility],[address] [place] [address] Lymph # 3.30 x10EE3/UL High 0.80 - 2.80 [facility] Comment on above: Performed By: #### 2 27175 #### [facility],[address] [place], [place] [id number] Lymphocytes/100 WBC (Bld) 30.0 % Normal 20.0 - 45.0 [facility] Comment on above: Performed By: #### 2 48858 #### [facility],[address] [place] [address] MANUAL DIFF N/A Normal [facility] Comment on above: Performed By: #### 2 [id number] #### [facility],[address] [place] [address] MCH (RBC) [Entitic mass] 27 pg Normal 27 - 33 [facility] Comment on above: Performed By: #### 2 [id number] #### [facility],[address] [place] [address] MCHC 33 X10 3 Normal 32 - 36 [facility] Comment on above: Performed By: #### 2 40955 #### [facility],[address] [place] [address] MCV (RBC) [Entitic vol] 80 fL Normal 80 - 99 [facility] Comment on above: Performed By: #### 2 86712 #### [facility],[address] [place] [address] [place] # 0.80 x10EE3/UL Normal 0.20 - 1.00 [facility] Comment on above: Performed By: #### 2 95133 #### [facility],[address] [place] [address] MONOS % 7.6 % Normal 0.0 - 10.0 [facility] Comment on above: Performed By: #### 2 47307 #### [facility],[address] [place] [address] Morphology Franky (Bld) [Interp] N/A Normal [facility] Comment on above: Performed By: #### 2 [id number] #### [facility],[address] [place] [address] Neut # 6.80 x10EE3/UL Normal 1.50 - 7.10 [facility] Comment on above: Performed By: #### 2 50788 #### [facility],[address] [place] [address] Neutrophils/100 WBC (Bld) 61.7 % Normal 46.0 - 76.0 [facility] Comment on above: Performed By: #### 2 48915 #### [facility],[address] [place] [address] PLATELET 504 x10EE3/UL High 150 - 450 [facility] Comment on above: Performed By: #### 2 10525 #### [facility],[address] [place] [address] Platelet mean volume (Bld) [Entitic vol] 7.2 fL Normal 6.6 - 10.5 [facility] Comment on above: Result Comment: AUTO MATED DIFFERENTIAL Performed By: #### 2 23118 #### [facility],[address] [place] [address] RBC 5.14 x 10EE6/UL Normal 4.10 - 5.30 [facility] Comment on above: Performed By: #### 2 91290 #### [facility],[address] [place] [address] WBC 11.1 x 10EE3/UL High 4.5 - 10.8 [facility] Comment on above: Performed By: #### 2 40935 #### [facility],[address] [place] [address] CMP with eGFRon 01-17-2023 AGE 32 years Normal [facility] Comment on above: Performed By: #### 2 26068 #### [facility],[address] [place] [address] Albumin [Mass/Vol] 3.6 g/dL Normal 3.4 - 5.0 [facility] Comment on above: Performed By: #### 2 88947 #### [facility],[address] [place] [address] Albumin/Globulin [Mass ratio] 0.7 {ratio} Low 0.9 - 1.6 [facility] Comment on above: Performed By: #### 2 26194 #### [facility],[address] [place] [address] ALK PHOS 73 U/L Normal 46 - 116 [facility] Comment on above: Performed By: #### 2 95736 #### [facility],[address] [place] [address] ALT [Catalytic activity/Vol] 21 U/L Normal 14 - 59 [facility] Comment on above: Performed By: #### 2 57900 #### [facility],[address] [place] [address] Anion gap [Moles/Vol] 17 mmol/L Normal 10 - 20 [facility] Comment on above: Performed By: #### 2 07061 #### [facility],[address] [place] [address]608 AST [Catalytic activity/Vol] 12 U/L Low 13 - 39 [facility] Comment on above: Performed By: #### 2 99538 #### [facility],[address] [place] [address] B/C RATIO 9 ratio Normal 0 - 30 [facility] Comment on above: Performed By: #### 2 63383 #### [facility],[address] [place] [address] Bilirubin [Mass/Vol] 0.7 mg/dL Normal 0.2 - 1.0 [facility] Comment on above: Performed By: #### 2 07165 #### [facility],[address] [place] [address] Calcium [Mass/Vol] 9.1 mg/dL Normal 8.5 - 10.1 [facility] Comment on above: Performed By: #### 2 65149 #### [facility],[address] [place] [address] Chloride [Moles/Vol] 98 mmol/L Normal 98 - 107 [facility] Comment on above: Performed By: #### 2 00297 #### [facility],[address] [place] [address] CMP with eGFR Normal [facility] [facility] Comment on above: Result Comment: COMP REHENSIVE METABOLIC PANEL Performed By: #### 2 [id number] #### [facility],[address] [place] [address] 11387 CO2 [Moles/Vol] 23.6 mmol/L Normal 21.0 - 32.0 [facility] Comment on above: Performed By: #### 2 [id number] #### [facility],[address] [place] [address] 86712 Creatinine [Mass/Vol] 1.10 mg/dL High 0.55 - 1.02 [facility] Comment on above: Performed By: #### 2 14030 #### [facility],[address] [place] [address] 99917 eGFR 58 ML/MINUTE Low 60 - 999 [facility] Comment on above: Performed By: #### 2 60576 #### [facility],[address] [place] [address] 38403 GFR/1.73 sq M.predicted among non-blacks MDRD (S/P/Bld) [Vol rate/Area] mL/min/{1.73_m2} Normal 60 - 999 [facility] Comment on above: Result Comment: ACCO RDING TO THE NATIONAL KIDNEY DISEASE EDUCATION PROGRAM(NKDE), A NORMAL eGFR IS A VALUE GREATER THAN OR EQUAL TO 60 ML/MIN/1.73 SQ METERS. CHRONIC KIDNEY DISEASE: <60mL/MIN/1.73 SQ METERS KIDNEY FAILURE: <15mL/MIN/1.73 SQ METERS THIS TEST SHOULD ONLY BE USED FOR PATIENTS 18 YEARS OF AGE AND OLDER. Performed By: #### 2 28786 #### [facility],[address] [place] [address] 15666 Globulin (S) [Mass/Vol] 5.1 g/dL High 1.5 - 3.8 [facility] Comment on above: Performed By: #### 2 97185 #### [facility],[address] [place] [address] 54043 Glucose [Mass/Vol] 191 mg/dL High 74 - 106 [facility] Comment on above: Performed By: #### 2 61943 #### [facility],[address] [place] [address] 19115 Potassium [Moles/Vol] 3.7 mmol/L Normal 3.5 - 5.1 [facility] Comment on above: Performed By: #### 2 70322 #### [facility],[address] [place] [address] 24945 Protein [Mass/Vol] 8.7 g/dL High 6.4 - 8.2 [facility] Comment on above: Performed By: #### 2 81174 #### [facility],[address] [place] [address] 78192 Sodium [Moles/Vol] 135 mmol/L Low 136 - 145 [facility] Comment on above: Performed By: #### 2 17566 #### [facility],[address] [place] [address] 79502 Urea nitrogen [Mass/Vol] 10 mg/dL Normal 7 - 18 [facility] Comment on above: Performed By: #### 2 36770 #### [facility],[address] [place] [address] ABDOMEN/PELVIS [facility] 2022 CT ABDOMEN/PELVIS [place] [address] Patient: GHISLAINE GIVENS Phone#: : 1990 Age: 32 Gender: F Pt. Type: ER Account: [id number] Location: [facility] Ordering: GERALDINE ROLAND Exam Date: 01/17/2023/8:31 Family Phys: Charge Code: 613219 Physician: Lamoure Order #: [id number] Dose#: PROCEDURE: CT ABDOMEN/PELVIS WITH CONTRAST COMPARISON: [facility], CT, ABDOMEN/PELVIS W CON, 01/24/2022, 18:58. INDICATIONS: [...] Report - Page 2 of 2 Patient: GHSILAINE GIVENS Phone#: : 1990 Age: 32 Gender: F Pt. Type: ER Account: [id number] Location: [id number] Ordering: GERALDINE ROLAND Exam Date: 01/17/2023/8:31 Family Phys: Charge Code: 231317 Physician: Lamoure Order #: [id number] Dose#: OTHER: Negative. CONCLUSION: 1. UNDER FILLING VERSUS MUCOSAL THICKENING AT THE RECTOSIGMOID COLON. Dictated by: Cristy Penaloza MD on 01/17/2023 at 9:14 Approved by: Cristy Penaloza MD on 01/17/2023 at 9:19 Normal [facility] DRUG SCREEN URINE MEDICon AMPHETAMINES Negative Normal [facility] Comment on above: Performed By: #### 2 04740 #### [facility],[address] [place] [address],[facility] [address] B-DIAZEPINES Negative Normal [facility] Comment on above: Performed By: #### 2 70404 #### [facility],[address] [place] [address],[facility] [address] BARBITURATES Negative Normal [facility] Comment on above: Performed By: #### 2 31103 #### [facility],[address] [place] [address],[facility] [address] COCAINE Negative Normal [facility] Comment on above: Performed By: #### 2 17221 #### [facility],[address] [place] [address] 56670 DRUG SCREEN URINE MEDIC Normal [facility] Comment on above: Result Comment: DRUG SCREEN - URINE Performed By: #### 2 22392 #### [facility],[address] [facility] [address] METHADONE Negative Normal [facility] Comment on above: Performed By: #### 2 57630 #### [facility],[address] [place] [address] 90297 OPIATES Negative Normal [facility] Comment on above: Performed By: #### 2 53343 #### [facility],[address] [place] [address] 80291 PCP Negative Normal [facility] Comment on above: Performed By: #### 2 33641 #### [facility],[address] [place] [address] 78603 THC Positive Normal [facility] Comment on above: Result Comment: ERASTO ENTS RECEIVING PROTON PUMP INHIBITORS MAY DEMONSTRATE FALSE POSITIVE THC/CANNABINOID RESULTS. AN ALTERNATIVE CONFIRMATORY METHOD SHOULD BE CONSIDERED TO VERIFY POSITIVE RESULTS. Performed By: #### 2 94106 #### [facility],[address] [place], [place] [address] [id number] LIPASEon 01-17-2023 Lipase [Catalytic activity/Vol] 143.0 U/L Normal 73.0 - 393 [facility] Comment on above: Performed By: #### 2 25892 #### [facility],[address] [place], [place] [id number] SERUM QUALon 01-17 EXTERNAL QC DONE? YES Normal [facility] Comment on above: Performed By: #### 2 91124 #### [facility],[address] [place] [address] INTERNAL QC PASS Normal [facility] Comment on above: Performed By: #### 2 12720 #### [facility],[address] [place] [address] SER Negative Normal NEGATIVE [facility] Comment on above: Performed By: #### 2 51769 #### [facility],[address] [place], [place] [id number] URINALYSISon 01-17-2023 Amorphous NONE Normal [facility] Comment on above: Performed By: #### 2 02714 #### [facility],[address] [place] [address] Bacteria 1+ Normal [facility] Comment on above: Performed By: #### 2 08732 #### [facility],[address] [place] [address] 86122 Bilirubin Ql (U) Negative Normal NORMAL: NEGATIVE [facility] Comment on above: Performed By: #### 2 21172 #### [facility],[address] [place], [place] [id number] Casts NONE Normal [facility] Comment on above: Performed By: #### 2 37470 #### [facility],[address] [place], [place] [phone] Clarity (U) clear Normal NORMAL: CLEAR [facility] Comment on above: Performed By: #### 2 77601 #### [facility],[address] [place] [address] Color (U) p.yel Normal NORMAL: YELLOW [facility] Comment on above: Performed By: #### 2 83363 #### [facility],[address] [place] [address] Crystals LM Nom (Urine sed) NONE Normal [facility] Comment on above: Performed By: #### 2 08671 #### [facility],[address] [place], [place] [phone] Epi Cells MODERATE Normal [facility] Comment on above: Performed By: #### 2 01977 #### [facility],[address] [place] [address] Glucose Ql (U) 50 Abnormal NORMAL: NORMAL [facility] Comment on above: Performed By: #### 2 87905 #### [facility],[address] [place] [address] Hemoglobin Ql (U) Negative Normal NORMAL: NEGATIVE [facility] Comment on above: Performed By: #### 2 87717 #### [facility],[address] [place] [address] Ketone 15 Abnormal NORMAL: NEGATIVE [facility] Comment on above: Performed By: #### 2 63077 #### [facility],[address] [place] [address] 00107 Leukocytes 100 Abnormal NORMAL: NEGATIVE [facility] Comment on above: Performed By: #### 2 29074 #### [facility],[address] [place] [address] Mucous NONE Normal [facility] Comment on above: Performed By: #### 2 74203 #### [facility],[address] [place] [address] 94777 Nitrite Ql (U) Negative Normal NORMAL: NEGATIVE [facility] Comment on above: Performed By: #### 2 52225 #### [facility],[address] [place] [address] pH (U) 7 [pH] Normal NORMAL: 5.0-8.0 [facility] Comment on above: Performed By: #### 2 32541 #### [facility],[address] [place] [address] Protein Ql (U) Negative Normal NORMAL: NEGATIVE [facility] Comment on above: Performed By: #### 2 57082 #### [facility],[address] [place] [address] Rbc NONE Normal 0-3/hpf [facility] Comment on above: Performed By: #### 2 85744 #### [facility],[address] [place] [address] Sp [place] 1.005 Low NORMAL: 1.010-1.030 [facility] Comment on above: Performed By: #### 2 71520 #### [facility],[address] [place] [address] Specimen Type UNSPECIFIED Normal [facility] Comment on above: Performed By: #### 2 21126 #### [facility],[address] [place] [address] Urinalysis dipstick W Reflex Microscopic panel (U) SEE BELOW Normal [facility] Comment on above: Result Comment: MICR OSCOPIC Performed By: #### 2 05824 #### [facility],[address] [place] [address] Urobilinog NORM Normal NORMAL: NORMAL [facility] Comment on above: Performed By: #### 2 20767 #### [facility],[address] [place] [address] Wbc 1-5 Normal 0-5/hpf [facility] Comment on above: Performed By: #### 2 02093 #### [facility],[address] [place] [address] Yeast NONE Normal [facility] Comment on above: Performed By: #### 2 08355 #### [facility],[address] [place] [address] 34064 Absolute lymphocyte countOrd ered By: Lexus Villatoro on 01-15-2023 Lymphocytes Auto (Unsp spec) [#/Vol] 3.20 10*3/uL 0.83-4.51 [facility] Basophil percentageOrdered B y: Lexus Villatoro on 01-15-2023 Basophil percentage 154 mg/dL 74-106 [facility] Basophil percentage 7.1 g/dL 6.4-8.2 [facility] Basophil percentage 0.60 mg/dL 0.20-1.00 [facility] Basophil percentage 136 mmol/L 136-145 [facility] Basophil percentage 3.1 mmol/L 3.5-5.1 [facility] Basophil percentage 105 mmol/L 98-107 [facility] Basophils (Bld) [#/Vol] 9.4 10*3/uL 4.4-11.0 [facility] Basophils (Bld) [#/Vol] 5.3 10*3/uL 2.0-7.7 [facility] Basophils/100 WBC (Bld) 0.3 % 0-1 [facility] Basophils/100 WBC (Bld) 56.4 % 47-70 [facility] Bilirubin [Mass/Vol] 0.60 mg/dL 0.20-1.00 [facility] Comment on above: For patients on eltr ombopag therapy, use of Dimension [place] TBIL is not recommended. Chloride [Moles/Vol] 105 mmol/L 98-107 [facility] Eosinophils/100 WBC (Bld) 0.3 % 0-5 [facility] Glucose [Mass/Vol] 154 mg/dL 74-106 [facility] Comment on above: Fasting Glucose resu lt greater than or equal to 126 mg/dL suggests DIABETES MELLITUS per A.D.A. criteria. Neutrophils (Bld) [#/Vol] 5.3 10*3/uL 2.0-7.7 [facility] Neutrophils/100 WBC (Bld) 56.4 % 47-70 [facility] Potassium [Moles/Vol] 3.1 mmol/L 3.5-5.1 [facility] Protein [Mass/Vol] 7.1 g/dL 6.4-8.2 [facility] Sodium [Moles/Vol] 136 mmol/L 136-145 [facility] WBC (Bld) [#/Vol] 9.4 10*3/uL 4.4-11.0 [facility] Blood erythrocytes count (nu mber/volume)Ordered By: Lexus Villatoro on 01-15-2023 RBC (Bld) [#/Vol] 4.43 10*6/uL 4.2-5.4 [facility] Blood hemoglobin measurement (mass/volume)Ordered By: Lexus Villatoro on 01-15-2023 Hemoglobin (Bld) [Mass/Vol] 11.7 g/dL 12.0-15.0 [facility] Blood lymphocytes/100 leukoc ytesOrdered By: Lexus Villatoro on 01-15-2023 Lymphocytes/100 WBC (Bld) 34.2 % 19-41 [facility] Blood monocytes/100 leukocyt esOrdered By: Lexus Villatoro on 01-15-2023 Monocytes/100 WBC (Bld) 8.2 % 0-10 [facility] Blood platelet mean volumeOr dered By: Lexus Villatoro on 01-15-2023 Platelet mean volume (Bld) [Entitic vol] 9.3 fL 6.2-12.0 [facility] Determination of erythrocyte mean corpuscular volume (MCV)Ordered By: Lexus Villatoro on 01-15-2023 MCV (RBC) [Entitic vol] 80.4 fL 81-99 [facility] Glucose Glucometer (BldC) [M ass/Vol]Ordered By: Lexus Villatoro on 01-15-2023 Glucose [Mass/Vol] 247 mg/dL 74-106 [facility] Comment on above: MANAGEMENT OF PATIEN T CARE PER NURSING PROTOCOL Hematocrit Auto (Bld) [Volum e fraction]Ordered By: Lexus Villatoro on 01-15-2023 Hematocrit (Bld) [Volume fraction] 35.6 % 37-47 [facility] Laboratory - Chemistry and C hemistry - challengeOrdered By: Lexus Villatoro on 01-15-2023 ALP [Catalytic activity/Vol] 54 U/L 45-117 [facility] ALT [Catalytic activity/Vol] 14 U/L 13-56 [facility] CO2 [Moles/Vol] 26.0 mmol/L 21.0-32.0 [facility] Globulin (S) [Mass/Vol] 4.1 g/dL 2.2-4.2 [facility] Magnesium [Mass/Vol] 2.0 mg/dL 1.6-2.6 [facility] Urea nitrogen/Creatinine [Mass ratio] 6.6 mg/mg 10-20 [facility] Laboratory - Hematology and Cell countsOrdered By: Lexus Villatoro on 01-15-2023 Erythrocyte distribution width (RBC) [Entitic vol] 40.1 fL 35.1-43.9 [facility] Erythrocyte distribution width (RBC) [Ratio] 13.8 % 11.6-14.6 [facility] Immature granulocytes/100 WBC (Bld) 0.600 % 0.0-0.9 [facility] Comment on above: IG% - Immature Granu locytes (promyelocytes, myelocytes and metamyelocytes) > 1% indicates that a LEFT SHIFT is Present. MCH (RBC) [Entitic mass] 26.4 pg 27.0-32.0 [facility] Nucleated RBC/100 WBC (Bld) [Ratio] 0 % 0-5 [facility] MCHC Auto (RBC) [Mass/Vol]Or dered By: Lexus Villatoro on 01-15-2023 MCHC (RBC) [Mass/Vol] 32.9 g/dL 32-36 [facility] No Panel InformationOrdered By: Lexus Villatoro on 01-15-2023 Estimated Creatinine Clearance Calc 84.62 ml/min [facility] Estimated GFR (MDRD) Amer 93 mL/min >60 [facility] Comment on above: GFR Calc Estimated GFR (MDRD) Non-Af Amer 77 mL/min >60 [facility] Comment on above: Non- GFR Calc Thyroid Stimulating Hormone (TSH) 2.30 uIU/mL 0.358-3.74 [facility] 26.4 pg 27.0-32.0 [facility] 13.8 % 11.6-14.6 [facility] 40.1 fl 35.1-43.9 [facility] 0.600 % 0.0-0.9 [facility] 0 % 0-5 [facility] 77 mL/min >60 [facility] 93 mL/min >60 [facility] 84.62 ml/min [facility] 6.6 RATIO 10-20 [facility] 4.1 g/dL 2.2-4.2 [facility] 54 U/L 45-117 [facility] 14 U/L 13-56 [facility] 2.0 mg/dL 1.6-2.6 [facility] 26.0 mmol/L 21.0-32.0 [facility] 2.30 uIU/mL 0.358-3.74 [facility] Platelets bldOrdered By: Porsche Villatoro on 01-15-2023 Platelets (Bld) [#/Vol] 361 10*3/uL 150-450 [facility] Serum or plasma albumin hussein urement (mass/volume)Ordered By: Lexus Villatoro on 01-15-2023 Albumin [Mass/Vol] 3.0 g/dL 3.2-5.0 [facility] Serum or plasma albumin/glob ulin mass ratioOrdered By: Lexus Villatoro on 01-15-2023 Albumin/Globulin [Mass ratio] 0.7 {ratio} 0.9-2.4 [facility] Serum or plasma calcium hussein urement (mass/volume)Ordered By: Lexus Villatoro on 01-15-2023 Calcium [Mass/Vol] 8.2 mg/dL 8.5-10.1 [facility] Serum or plasma creatinine m easurement (mass/volume)Ordered By: Lexus Villatoro on 01-15-2023 Creatinine [Mass/Vol] 0.91 mg/dL 0.55-1.02 [facility] Comment on above: The validity of the calculated GFR & GFRAA in patients over 70 years has not been determined. Clinical correlation is essential. Serum or plasma urea nitroge n measurement (mass/volume)Ordered By: Lexus Villatoro on 01-15-2023 Urea nitrogen [Mass/Vol] 6 mg/dL 7-18 [facility] Thin prep Papanicolaou smear with manual screeningOrdered By: Lexus Villatoro on 01-15-2023 Thin prep Papanicolaou smear with manual screening 13 U/L 15-37 [facility] Thin prep Papanicolaou smear with manual screening 5 5-15 [facility] Bacteria identified Cx Nom ( U)Ordered By: Willie Dhillon on 01-14-2023 Culture, urine Positive [facility] Basophil percentageOrdered B y: Willie Dhillon on 01-14-2023 Basophil percentage 1.3 mmol/L 0.4-2.0 [facility] Lactate [Moles/Vol] 1.3 mmol/L 0.4-2.0 [facility] Basophil percentage 0-5 SEEN /hpf 0-5 [facility] Beta hCG serum qualOrdered B y: Willie Dhillon on 01-14-2023 Beta HCG ( test) Ql Negative [facility] Bilirubin Test strip Ql (U)O rdered By: Willie Dhillon on 01-14-2023 Bilirubin Ql (U) Negative Negative [facility] Culture, urineOrdered By: Reji March on 01-14-2023 Bacteria identified Cx Nom (U) Positive [facility] Ketones Test strip Ql (U)Ord ered By: Willie Dhillon on 01-14-2023 Ketones Ql (U) 5 mg/dl Negative [facility] Laboratory - Drug toxicology Ordered By: Lexus Villatoro on 01-14-2023 Amphetamines Ql (U) Negative <1000 ng/mL [facility] Benzodiazepines Ql (U) Negative < 200 ng/mL [facility] Cannabinoids Screen Ql (U) Positive < 50 ng/mL [facility] Cocaine Ql (U) Negative < 300 ng/mL [facility] Opiates Ql (U) Negative < 300 ng/mL [facility] Mucus LM Ql (Urine sed)Order ed By: Willie Dhillon on 01-14-2023 Mucus Ql (Urine sed) 0 SEEN /hpf [facility] Nitrite Test strip Ql (U)Ord ered By: Willie Dhillon on 01-14-2023 Nitrite Ql (U) Negative Negative [facility] No Panel InformationOrdered By: Lexus Villatoro on 01-14-2023 MDMA (Ecstasy) Screen Negative < 500 ng/mL [facility] Urine Barbiturates Screen Negative < 200 ng/mL [facility] Urine Drug Screen Comment [facility] Comment on above: CONFIRMATORY TESTING FOR [...] Methadone Screen Negative < 300 ng/mL [facility] Negative < 300 ng/mL [facility] Positive < 50 ng/mL [facility] Protein Test strip Ql (U)Ord ered By: Willie Dhillon on 01-14-2023 Protein Ql (U) 15 mg/dl Negative [facility] Squamous epithelial cells de tection in urine sediment by light microscopyOrdered By: Willie Dhillon on 01-14-2023 Epithelial cells.squamous LM Ql (Urine sed) 0-5 SEEN /hpf 5-10 [facility] Urine blood detectionOrdered By: Willie Dhillon on 01-14-2023 RBC Ql (U) 10 /ul Negative [facility] RBC Ql (U) 0-5 SEEN /hpf 0-5 [facility] Urine clarityOrdered By: Heath Dhillon on 01-14-2023 Clarity (U) Clear Clear [facility] Urine color determinationOrd ered By: Willie Dhillon on 01-14-2023 Color (U) Yellow Yellow [facility] Urine glucose detectionOrder ed By: Willie Dhillon on 01-14-2023 Glucose Ql (U) 250 mg/dl Normal [facility] Urine leukocyte esterase det ection by dipstickOrdered By: Willie Dhillon on 01-14-2023 Leukocyte esterase Test strip Ql (U) 25 /ul Negative [facility] Urine pHOrdered By: Willie mo on 01-14-2023 pH (U) 8.0 [pH] 5.0 - 8.0 [facility] Urine phencyclidine (PCP) de tectionOrdered By: Lexus Villatoro on 01-14-2023 Phencyclidine Ql (U) Negative < 25 ng/mL [facility] Urine sediment bacteria coun t by microscopy (number/high power field)Ordered By: Willie Dhillon on 01-14-2023 Bacteria LM.HPF (Urine sed) [#/Area] RARE /hpf None Seen [facility] Urine specific gravity measu rementOrdered By: Willie Dhillon on 01-14-2023 Specific gravity (U) [Rel density] 1.015 1.002-1.030 [facility] Urobilinogen Auto test strip Ql (U)Ordered By: Willie Dhillon on 01-14-2023 Urobilinogen Ql (U) Normal mg/dl Normal [facility] Basophil percentageOrdered B y: Deann Guerrero on 01-13-2023 Basophil percentage 25-50 SEEN /hpf 0-5 [facility] Basophil percentage 235 mg/dL 74-106 [facility] Basophil percentage 137 mmol/L 136-145 [facility] Basophil percentage 3.2 mmol/L 3.5-5.1 [facility] Basophil percentage 107 mmol/L 98-107 [facility] Chloride [Moles/Vol] 107 mmol/L 98-107 [facility] Glucose [Mass/Vol] 235 mg/dL 74-106 [facility] Comment on above: Glucose result great er than or equal to 200 mg/dLsuggests DIABETES MELLITUS per A.D.A. criteria. Potassium [Moles/Vol] 3.2 mmol/L 3.5-5.1 [facility] Sodium [Moles/Vol] 137 mmol/L 136-145 [facility] Beta hCG serum qualOrdered B y: Deann Guerrero on 01-13-2023 Beta HCG ( test) Ql Negative [facility] Bilirubin Test strip Ql (U)O rdered By: Deann Guerrero on 01-13-2023 Bilirubin Ql (U) Negative Negative [facility] Ketones Test strip Ql (U)Ord ered By: Deann Guerrero on 01-13-2023 Ketones Ql (U) 15 mg/dl Negative [facility] Laboratory - Chemistry and C hemistry - challengeOrdered By: Deann Guerrero on 01-13-2023 CO2 [Moles/Vol] 23.0 mmol/L 21.0-32.0 [facility] Urea nitrogen/Creatinine [Mass ratio] 7.6 mg/mg 10-20 [facility] Mucus LM Ql (Urine sed)Order ed By: Deann Guerrero on 01-13-2023 Mucus Ql (Urine sed) 1+ /hpf [facility] Nitrite Test strip Ql (U)Ord ered By: Deann Guerrero on 01-13-2023 Nitrite Ql (U) Negative Negative [facility] No Panel InformationOrdered By: Deann Guerrero on 01-13-2023 Estimated Creatinine Clearance Calc 73.34 ml/min [facility] Estimated GFR (MDRD) Amer 79 mL/min >60 [facility] Comment on above: GFR Calc Estimated GFR (MDRD) Non-Af Amer 65 mL/min >60 [facility] Comment on above: Non- GFR Calc 65 mL/min >60 [facility] 79 mL/min >60 [facility] 73.34 ml/min [facility] 7.6 RATIO 10-20 [facility] 23.0 mmol/L 21.0-32.0 [facility] Protein Test strip Ql (U)Ord ered By: Deann Guerrero on 01-13-2023 Protein Ql (U) 30 mg/dl Negative [facility] Serum or plasma calcium hussein urement (mass/volume)Ordered By: Deann Guerrero on 01-13-2023 Calcium [Mass/Vol] 8.5 mg/dL 8.5-10.1 [facility] Serum or plasma creatinine m easurement (mass/volume)Ordered By: Deann Guerrero on 01-13-2023 Creatinine [Mass/Vol] 1.05 mg/dL 0.55-1.02 [facility] Comment on above: The validity of the calculated GFR & GFRAA in patients over 70 years has not been determined. Clinical correlation is essential. Serum or plasma urea nitroge n measurement (mass/volume)Ordered By: Denan Guerrero on 01-13-2023 Urea nitrogen [Mass/Vol] 8 mg/dL 7-18 [facility] Squamous epithelial cells de tection in urine sediment by light microscopyOrdered By: Deann Guerrero on 01-13-2023 Epithelial cells.squamous LM Ql (Urine sed) 5-10 SEEN /hpf 5-10 [facility] Thin prep Papanicolaou smear with manual screeningOrdered By: Deann Guerrero on 07-05-2023 Thin prep Papanicolaou smear with manual screening 7 5-15 [facility] Urine blood detectionOrdered By: Deann Guerrero on 01-13-2023 RBC Ql (U) 10 /ul Negative [facility] RBC Ql (U) 0-5 SEEN /hpf 0-5 [facility] Urine clarityOrdered By: Sulema Guerrero on 01-13-2023 Clarity (U) Sl. Cloudy Clear [facility] Urine color determinationOrd ered By: Deann Guerrero on 01-13-2023 Color (U) Yellow Yellow [facility] Urine glucose detectionOrder ed By: Deann Guerrero on 01-13-2023 Glucose Ql (U) 250 mg/dl Normal [facility] Urine leukocyte esterase det ection by dipstickOrdered By: Deann Guerrero on 01-13-2023 Leukocyte esterase Test strip Ql (U) 500 /ul Negative [facility] Urine pHOrdered By: Deann Guerrero on 01-13-2023 pH (U) 6.0 [pH] 5.0 - 8.0 [facility] Urine sediment bacteria coun t by microscopy (number/high power field)Ordered By: Deann Guerrero on 01-13-2023 Bacteria LM.HPF (Urine sed) [#/Area] 1 /[HPF] None Seen [facility] Urine specific gravity measu rementOrdered By: Deann Guerrero on 01-13-2023 Specific gravity (U) [Rel density] 1.020 1.002-1.030 [facility] Urobilinogen Auto test strip Ql (U)Ordered By: Deann Guerrero on 01-13-2023 Urobilinogen Ql (U) 1 mg/dl Normal [facility] Absolute lymphocyte countOrd ered By: Perico Norman on 01-12-2023 Lymphocytes Auto (Unsp spec) [#/Vol] 1.80 10*3/uL 0.83-4.51 [facility] Basophil percentageOrdered B y: Fabricio Guevara on 01-12-2023 Basophil percentage 208 mg/dL 74-106 [facility] Basophil percentage 137 mmol/L 136-145 [facility] Basophil percentage 3.0 mmol/L 3.5-5.1 [facility] Basophil percentage 105 mmol/L 98-107 [facility] Chloride [Moles/Vol] 105 mmol/L 98-107 [facility] Glucose [Mass/Vol] 208 mg/dL 74-106 [facility] Comment on above: Glucose result great er than or equal to 200 mg/dLsuggests DIABETES MELLITUS per A.D.A. criteria. Potassium [Moles/Vol] 3.0 mmol/L 3.5-5.1 [facility] Sodium [Moles/Vol] 137 mmol/L 136-145 [facility] Basophil percentageOrdered B y: Perico Norman on 01-12-2023 Basophil percentage 267 mg/dL 74-106 [facility] Basophil percentage 7.8 g/dL 6.4-8.2 [facility] Basophil percentage 0.40 mg/dL 0.20-1.00 [facility] Basophil percentage 134 mmol/L 136-145 [facility] Basophil percentage 3.4 mmol/L 3.5-5.1 [facility] Basophil percentage 101 mmol/L 98-107 [facility] Basophils (Bld) [#/Vol] 12.4 10*3/uL 4.4-11.0 [facility] Basophils (Bld) [#/Vol] 9.9 10*3/uL 2.0-7.7 [facility] Basophils/100 WBC (Bld) 0.3 % 0-1 [facility] Basophils/100 WBC (Bld) 79.6 % 47-70 [facility] Basophils/100 WBC (Bld) 0.0 % 0-5 [facility] Bilirubin [Mass/Vol] 0.40 mg/dL 0.20-1.00 [facility] Comment on above: For patients on eltr ombopag therapy, use of [employer] [place] TBIL is not recommended. Chloride [Moles/Vol] 101 mmol/L 98-107 [facility] Eosinophils/100 WBC (Bld) 0.0 % 0-5 [facility] Glucose [Mass/Vol] 267 mg/dL 74-106 [facility] Comment on above: Glucose result great er than or equal to 200 mg/dLsuggests DIABETES MELLITUS per A.D.A. criteria. Neutrophils (Bld) [#/Vol] 9.9 10*3/uL 2.0-7.7 [facility] Neutrophils/100 WBC (Bld) 79.6 % 47-70 [facility] Potassium [Moles/Vol] 3.4 mmol/L 3.5-5.1 [facility] Protein [Mass/Vol] 7.8 g/dL 6.4-8.2 [facility] Sodium [Moles/Vol] 134 mmol/L 136-145 [facility] WBC (Bld) [#/Vol] 12.4 10*3/uL 4.4-11.0 [facility] Blood erythrocytes count (nu mber/volume)Ordered By: Perico Norman on 01-12-2023 RBC (Bld) [#/Vol] 4.62 10*6/uL 4.2-5.4 [facility] Blood hemoglobin measurement (mass/volume)Ordered By: Perico Norman on 01-12-2023 Hemoglobin (Bld) [Mass/Vol] 12.1 g/dL 12.0-15.0 [facility] Blood lymphocytes/100 leukoc ytesOrdered By: Perico Norman on 01-12-2023 Lymphocytes/100 WBC (Bld) 14.5 % 19-41 [facility] Blood monocytes/100 leukocyt esOrdered By: Perico Norman on 01-12-2023 Monocytes/100 WBC (Bld) 5.0 % 0-10 [facility] Blood platelet mean volumeOr dered By: Perico Norman on 01-12-2023 Platelet mean volume (Bld) [Entitic vol] 9.0 fL 6.2-12.0 [facility] Determination of erythrocyte mean corpuscular volume (MCV)Ordered By: Perico Norman on 01-12-2023 MCV (RBC) [Entitic vol] 81.0 fL 81-99 [facility] Direct bilirubinOrdered By: Perico Norman on 01-12-2023 Bilirubin.direct [Mass/Vol] 0.14 mg/dL 0.00-0.30 [facility] Hematocrit Auto (Bld) [Volum e fraction]Ordered By: Perico Norman on 01-12-2023 Hematocrit (Bld) [Volume fraction] 37.4 % 37-47 [facility] Laboratory - Chemistry and C hemistry - challengeOrdered By: Fabricio Guevara on 01-12-2023 CO2 [Moles/Vol] 26.0 mmol/L 21.0-32.0 [facility] Urea nitrogen/Creatinine [Mass ratio] 7.0 mg/mg 10- [facility] Laboratory - Chemistry and C hemistry - challengeOrdered By: Perico Norman on 01-12-2023 ALP [Catalytic activity/Vol] 68 U/L 45-117 [facility] ALT [Catalytic activity/Vol] 14 U/L 13-56 [facility] CO2 [Moles/Vol] 24.0 mmol/L 21.0-32.0 [facility] Globulin (S) [Mass/Vol] 4.5 g/dL 2.2-4.2 [facility] Lipase [Catalytic activity/Vol] 37 U/L 13-75 [facility] Comment on above: Please note:LIPASE r evised reference range effective 22. New Lipase methodology. Expected to produce lower values than the previous assay method. NEW Reference Range: 13 - 75 U/L Urea nitrogen/Creatinine [Mass ratio] 9.7 mg/mg 10-20 [facility] Laboratory - Hematology and Cell countsOrdered By: Perico Norman on 01-12-2023 Erythrocyte distribution width (RBC) [Entitic vol] 38.9 fL 35.1-43.9 [facility] Erythrocyte distribution width (RBC) [Ratio] 13.7 % 11.6-14.6 [facility] Immature granulocytes/100 WBC (Bld) 0.600 % 0.0-0.9 [facility] Comment on above: IG% - Immature Granu locytes (promyelocytes, myelocytes and metamyelocytes) > 1% indicates that a LEFT SHIFT is Present. MCH (RBC) [Entitic mass] 26.2 pg 27.0-32.0 [facility] Nucleated RBC/100 WBC (Bld) [Ratio] 0 % 0-5 [facility] MCHC Auto (RBC) [Mass/Vol]Or dered By: Perico Norman on 01-12-2023 MCHC (RBC) [Mass/Vol] 32.4 g/dL 32-36 [facility] No Panel InformationOrdered By: Fabricio Guevara on 01-12-2023 Estimated Creatinine Clearance Calc 77.01 ml/min [facility] Estimated GFR (MDRD) Amer 84 mL/min >60 [facility] Comment on above: GFR Calc Estimated GFR (MDRD) Non-Af Amer 69 mL/min >60 [facility] Comment on above: Non- GFR Calc 69 mL/min >60 [facility] 84 mL/min >60 [facility] 77.01 ml/min [facility] 7.0 RATIO 10-20 [facility] 26.0 mmol/L 21.0-32.0 [facility] No Panel InformationOrdered By: Perico Norman on 01-12-2023 Estimated Creatinine Clearance Calc 68.15 ml/min [facility] Estimated GFR (MDRD) Amer 72 mL/min >60 [facility] Comment on above: GFR Calc Estimated GFR (MDRD) Non-Af Amer 60 mL/min >60 [facility] Comment on above: Non- GFR Calc 26.2 pg 27.0-32.0 [facility] 13.7 % 11.6-14.6 [facility] 38.9 fl 35.1-43.9 [facility] 0.600 % 0.0-0.9 [facility] 0 % 0-5 [facility] 60 mL/min >60 [facility] 72 mL/min >60 [facility] 68.15 ml/min [facility] 9.7 RATIO 10-20 [facility] 4.5 g/dL 2.2-4.2 [facility] 37 U/L 13-75 [facility] 68 U/L 45-117 [facility] 14 U/L 13-56 [facility] 24.0 mmol/L 21.0-32.0 [facility] Platelets bldOrdered By: Bakari Norman on 01-12-2023 Platelets (Bld) [#/Vol] 352 10*3/uL 150-450 [facility] Serum or plasma albumin hussein urement (mass/volume)Ordered By: Perico Norman on 01-12-2023 Albumin [Mass/Vol] 3.3 g/dL 3.2-5.0 [facility] Serum or plasma calcium hussein urement (mass/volume)Ordered By: Fabricio Guevara on 01-12-2023 Calcium [Mass/Vol] 8.7 mg/dL 8.5-10.1 [facility] Serum or plasma calcium hussein urement (mass/volume)Ordered By: Perico Normna on 01-12-2023 Calcium [Mass/Vol] 9.0 mg/dL 8.5-10.1 [facility] Serum or plasma creatinine m easurement (mass/volume)Ordered By: Fabricio Guevara on 01-12-2023 Creatinine [Mass/Vol] 1.00 mg/dL 0.55-1.02 [facility] Comment on above: The validity of the calculated GFR & GFRAA in patients over 70 years has not been determined. Clinical correlation is essential. Serum or plasma creatinine m easurement (mass/volume)Ordered By: Perico Norman on 01-12-2023 Creatinine [Mass/Vol] 1.13 mg/dL 0.55-1.02 [facility] Comment on above: The validity of the calculated GFR & GFRAA in patients over 70 years has not been determined. Clinical correlation is essential. Serum or plasma urea nitroge n measurement (mass/volume)Ordered By: Fabricio Guevara on 01-12-2023 Urea nitrogen [Mass/Vol] 7 mg/dL 01-26 [facility] Serum or plasma urea nitroge n measurement (mass/volume)Ordered By: Perico Norman on 01-12-2023 Urea nitrogen [Mass/Vol] 11 mg/dL 01-26 [facility] Thin prep Papanicolaou smear with manual screeningOrdered By: Fabricio Guevara on 01-12-2023 Thin prep Papanicolaou smear with manual screening 6 11-23 [facility] Thin prep Papanicolaou smear with manual screeningOrdered By: Perico Norman on 01-12-2023 Thin prep Papanicolaou smear with manual screening 12 U/L 15-37 [facility] Thin prep Papanicolaou smear with manual screening 9 - [facility] .Auto Diffon 01-10-2023 Basophil, Absolute 0.0 10 3/mcL Normal 0.0-0.2 [facility] ([place]) Comment on above: Performed By: #### A DIFF, GFR, MDW, CMP, ANEU, CBC, LIP #### [address] [address] Basophils/100 WBC (Bld) 0.2 % Normal 0.0-2.5 [facility] ([place]) Comment on above: Performed By: #### A DIFF, GFR, MDW, CMP, ANEU, CBC, LIP #### [address] [address] Eosinophil, Absolute 0.0 10 3/mcL Normal 0.0-0.4 Counts include 234 beds at the [facility] ([place]) Comment on above: Performed By: #### A DIFF, GFR, MDW, CMP, ANEU, CBC, LIP #### [address] [address] Eosinophils/100 WBC (Bld) 0.1 % Normal 0.0-7.0 [facility] ([place] Comment on above: Performed By: #### A DIFF, GFR, MDW, CMP, ANEU, CBC, LIP #### [address] [address] Lymphocyte, Absolute 2.7 10 3/mcL Normal 0.8-3.9 Counts include 234 beds at the [facility] ([place]) Comment on above: Performed By: #### A DIFF, GFR, MDW, CMP, ANEU, CBC, LIP #### [address] [address] Lymphocytes/100 WBC (Bld) 17.3 % Normal 10.0-50.0 [facility] ([place] Comment on above: Performed By: #### A DIFF, GFR, MDW, CMP, ANEU, CBC, LIP #### [address] [address] Monocyte, Absolute 0.9 10 3/mcL Normal 0.2-1.0 [facility] ([place]) Comment on above: Performed By: #### A DIFF, GFR, MDW, CMP, ANEU, CBC, LIP #### [address] [address] Monocytes/100 WBC (Bld) 5.7 % Normal 1.7-13.0 A [facility] ([place] Comment on above: Performed By: #### A DIFF, GFR, MDW, CMP, ANEU, CBC, LIP #### [address] [address] Neutrophils/100 WBC (Bld) 76.7 % Normal 37.0-80.0 [facility] ([place] Comment on above: Performed By: #### A DIFF, GFR, MDW, CMP, ANEU, CBC, LIP #### [address] [address] .GFRon 01-10-2023 GFR 64 ml/min/1.73sqm Normal [facility] ([place] Comment on above: Result Comment: GFR Population [...] GFR, MDW, CMP, ANEU, CBC, LIP #### [address] [address] GFR Non- 53 ml/min/1.73sqm Normal [facility] ([place] Comment on above: Result Comment: GFR Population [...] GFR, MDW, CMP, ANEU, CBC, LIP #### [place] [address] .MDWon 01-10-2023 Monocyte Distribution Width 14.44 Normal 0.00-20.00 [facility] ([place] Comment on above: Result Comment: For ED adult patients suspected of sepsis, MDW<=20.0 does not rule out sepsis or risk of sepsis Performed By: #### A DIFF, GFR, MDW, CMP, ANEU, CBC, LIP #### [place] [address] .NEUABSon 01-10-2023 Neutrophil, Absolute 11.9 10 3/mcL High 2.9-6.2 A [facility] ([place] Comment on above: Performed By: #### A DIFF, GFR, MDW, CMP, ANEU, CBC, LIP #### [place] [address] .Urinalysis Microscopic (AO) on 01-10-2023 UA Bacteria Trace Abnormal [facility] ([place] Comment on above: Performed By: #### A DIFF, GFR, MDW, CMP, ANEU, CBC, LIP #### [place] [address] UA RBC 0-5 Abnormal None Seen [facility] ([place] Comment on above: Performed By: #### A DIFF, GFR, MDW, CMP, ANEU, CBC, LIP #### [address] [address] UA Squam Epithelial LOADED Abnormal None Seen [facility] ([place] Comment on above: Performed By: #### A DIFF, GFR, MDW, CMP, ANEU, CBC, LIP #### [place] [address] UA WBC 0-5 Abnormal None Seen [facility] ([place] Comment on above: Performed By: #### A DIFF, GFR, MDW, CMP, ANEU, CBC, LIP #### [address] [address] UA Yeast Trace Abnormal [facility] ([place] Comment on above: Performed By: #### A DIFF, GFR, MDW, CMP, ANEU, CBC, LIP #### [address] [address] CBCon 01-10-2023 Erythrocyte distribution width (RBC) [Ratio] 14.7 % High 11.5-14.5 [facility] ([place] Comment on above: Performed By: #### A DIFF, GFR, MDW, CMP, ANEU, CBC, LIP #### [place] [address] Hematocrit (Bld) [Volume fraction] 38.7 % Normal 37.0-47.0 [facility] ([place] Comment on above: Performed By: #### A DIFF, GFR, MDW, CMP, ANEU, CBC, LIP #### [place] [address] Hgb 12.9 G/dL Normal 12.0-16.0 [facility] ([place] Comment on above: Performed By: #### A DIFF, GFR, MDW, CMP, ANEU, CBC, LIP #### [address] [address] MCH (RBC) [Entitic mass] 25.7 pg Low 27.0-31.2 [facility] ([place] Comment on above: Performed By: #### A DIFF, GFR, MDW, CMP, ANEU, CBC, LIP #### [address] [address] MCHC 33.3 G/dL Normal 33.0-37.0 [facility] ([place] Comment on above: Performed By: #### A DIFF, GFR, MDW, CMP, ANEU, CBC, LIP #### [address] [address] MCV (RBC) [Entitic vol] 77.4 fL Low 80.0-94.0 A [facility] ([place] Comment on above: Performed By: #### A DIFF, GFR, MDW, CMP, ANEU, CBC, LIP #### [address] [address] Platelet 438 10 3/mcL High 130-400 [facility] ([place] Comment on above: Performed By: #### A DIFF, GFR, MDW, CMP, ANEU, CBC, LIP #### [address] [address] Platelet mean volume (Bld) [Entitic vol] 7.2 fL Low 7.4-10.4 [facility] ([place] Comment on above: Performed By: #### A DIFF, GFR, MDW, CMP, ANEU, CBC, LIP #### [address] [address] RBC 5.01 10 6/mcL Normal 4.20-5.40 [facility] ([place] Comment on above: Performed By: #### A DIFF, GFR, MDW, CMP, ANEU, CBC, LIP #### [address] [address] WBC 15.5 10 3/mcL High 4.6-10.8 [facility] ([place] Comment on above: Performed By: #### A DIFF, GFR, MDW, CMP, ANEU, CBC, LIP #### [address] [address] CMPon 01-10-2023 Albumin Level 3.9 G/dL Normal 3.5-5.0 [facility] ([place] Comment on above: Performed By: #### A DIFF, GFR, MDW, CMP, ANEU, CBC, LIP #### [address] [address] Albumin/Globulin [Mass ratio] 0.9 {ratio} Low 1.1-2.5 [facility] ([place] Comment on above: Performed By: #### A DIFF, GFR, MDW, CMP, ANEU, CBC, LIP #### [address] [address] ALP [Catalytic activity/Vol] 84 U/L Normal 40-135 [facility] ([place] Comment on above: Performed By: #### A DIFF, GFR, MDW, CMP, ANEU, CBC, LIP #### [address] [address] ALT [Catalytic activity/Vol] 17 U/L Normal 14-59 [facility] ([place] Comment on above: Performed By: #### A DIFF, GFR, MDW, CMP, ANEU, CBC, LIP #### [address] [address] AST [Catalytic activity/Vol] 13 U/L Normal 10-40 [facility] ([place] Comment on above: Performed By: #### A DIFF, GFR, MDW, CMP, ANEU, CBC, LIP #### [address] [address] Bili Total 0.6 mg/dL Normal 0.2-1.0 [facility] ([place] Comment on above: Result Comment: Use of this assay is not recommended for patients undergoing treatment with eltrombopag due to the potential for falsely elevated results. Performed By: #### A DIFF, GFR, MDW, CMP, ANEU, CBC, LIP #### [address] [address] BUN/Creatinine Ratio 11 ratio Normal 7-27 [facility] ([place]) Comment on above: Performed By: #### A DIFF, GFR, MDW, CMP, ANEU, CBC, LIP #### [address] [address] Calcium [Mass/Vol] 9.4 mg/dL Normal 8.4-10.2 [facility] ([place] Comment on above: Performed By: #### A DIFF, GFR, MDW, CMP, ANEU, CBC, LIP #### [address] [address] Chloride [Moles/Vol] 99 mmol/L Normal 98-107 [facility] ([place] Comment on above: Performed By: #### A DIFF, GFR, MDW, CMP, ANEU, CBC, LIP #### [address] [address] CO2 [Moles/Vol] 22 mmol/L Normal 22-29 [facility] ([place] Comment on above: Performed By: #### A DIFF, GFR, MDW, CMP, ANEU, CBC, LIP #### [address] [address] Creatinine [Mass/Vol] 1.20 mg/dL High 0.55-1.02 [facility] ([place] Comment on above: Performed By: #### A DIFF, GFR, MDW, CMP, ANEU, CBC, LIP #### [address] [address] Electrolyte Balance 17.0 mEq/L High 4.0-15.0 [facility] ([place] Comment on above: Performed By: #### A DIFF, GFR, MDW, CMP, ANEU, CBC, LIP #### [address] [address] Globulin 4.4 G/dL Normal [facility] ([place] Comment on above: Performed By: #### A DIFF, GFR, MDW, CMP, ANEU, CBC, LIP #### [address] [address] Glucose [Mass/Vol] 270 mg/dL High 70-105 [facility] ([place] Comment on above: Performed By: #### A DIFF, GFR, MDW, CMP, ANEU, CBC, LIP #### [address] [address] Potassium [Moles/Vol] 3.4 mmol/L Low 3.5-5.1 [facility] ([place] Comment on above: Performed By: #### A DIFF, GFR, MDW, CMP, ANEU, CBC, LIP #### [address] [address] Sodium [Moles/Vol] 138 mmol/L Normal 136-145 [facility] ([place] Comment on above: Performed By: #### A DIFF, GFR, MDW, CMP, ANEU, CBC, LIP #### [address] [address] Total Protein 8.3 G/dL High 6.4-8.2 [facility] ([place] Comment on above: Performed By: #### A DIFF, GFR, MDW, CMP, ANEU, CBC, LIP #### [place] [address] [place], [place] [address] Urea nitrogen [Mass/Vol] 13 mg/dL Normal 7-18 [facility] ([place] Comment on above: Performed By: #### A DIFF, GFR, MDW, CMP, ANEU, CBC, LIP #### [place] [address] [place], [place] [address] CT ABD/PELVIS W/ IV CONTRAST ONLYon 01-10-2023 [...] 01/10/2023 4:59:31 PM Ordering Provider: ESSIE DOWNS [facility] ([place] LABORATORYOrdered By: SYSTEM SYSTEM on 01-10-2023 Albumin [...] 01-10-2023 Lipase Level 39 U/L Normal 16-77 [facility] ([place] Comment on above: Performed By: #### A DIFF, GFR, MDW, CMP, ANEU, CBC, LIP #### [address] [address] PREGUon 01-10-2023 HCG ( test) Ql (U) Negative Normal [facility] ([place] Comment on above: Performed By: #### A DIFF, GFR, MDW, CMP, ANEU, CBC, LIP #### [place] [address] [place], [place] [address] test (u) int Not detected Invalid Interpretation Code [facility] ([place] Comment on above: Performed By: #### A DIFF, GFR, MDW, CMP, ANEU, CBC, LIP #### [address] [address] UAon 01-10-2023 Color (U) Yellow Normal [facility] ([place] Comment on above: Performed By: #### A DIFF, GFR, MDW, CMP, ANEU, CBC, LIP #### [place] [address] Glucose (U) [Mass/Vol] 500 mg/dL Abnormal Negative Counts include 234 beds at the [facility] ([place] Comment on above: Performed By: #### A DIFF, GFR, MDW, CMP, ANEU, CBC, LIP #### [address] [address] Ketones Ql (U) >=160 Abnormal Negative [facility] ([place] Comment on above: Performed By: #### A DIFF, GFR, MDW, CMP, ANEU, CBC, LIP #### [address] [address] UA Appear Slightly Cloudy Abnormal Clear [facility] ([place] Comment on above: Performed By: #### A DIFF, GFR, MDW, CMP, ANEU, CBC, LIP #### [address] [address] UA Blood Negative Normal Negative [facility] ([place] Comment on above: Performed By: #### A DIFF, GFR, MDW, CMP, ANEU, CBC, LIP #### [address] [address] UA Leuk Est Negative Normal Negative [facility] ([place] Comment on above: Performed By: #### A DIFF, GFR, MDW, CMP, ANEU, CBC, LIP #### [address] [address] UA Nitrite Negative Normal Negative [facility] ([place] Comment on above: Performed By: #### A DIFF, GFR, MDW, CMP, ANEU, CBC, LIP #### [address] [address] UA pH 8.5 Abnormal 5.0 - 8.0 [facility] ([place] Comment on above: Performed By: #### A DIFF, GFR, MDW, CMP, ANEU, CBC, LIP #### [place] [address] [place], [place] [address] UA Protein 100 mg/dL Abnormal Negative [facility] ([place] Comment on above: Performed By: #### A DIFF, GFR, MDW, CMP, ANEU, CBC, LIP #### [address] [address] UA Spec Grav 1.020 Normal 1.015-1.025 [facility] ([place] Comment on above: Performed By: #### A DIFF, GFR, MDW, CMP, ANEU, CBC, LIP #### [place] [address] [place], [place] [address] UA Specimen Type Clean Catch Normal [facility] ([place] Comment on above: Performed By: #### A DIFF, GFR, MDW, CMP, ANEU, CBC, LIP #### [address] [address] UA Urobilinogen 0.2 E.U./dL Normal 0.2-1.0 [facility] ([place] Comment on above: Performed By: #### A DIFF, GFR, MDW, CMP, ANEU, CBC, LIP #### [address] [address] Urobilinogen (U) [Mass/Vol] Negative Normal Negative [facility] ([place]) Comment on above: Performed By: #### A DIFF, GFR, MDW, CMP, ANEU, CBC, LIP #### [address] [address] Absolute lymphocyte countOrd ered By: Carlos Calvo on 01-09-2023 Lymphocytes Auto (Unsp spec) [#/Vol] 2.47 10*3/uL 0.83-4.51 [facility] Basophil percentageOrdered B y: Carlos Calvo on 01-09-2023 Basophil percentage 0 SEEN /hpf 0-5 [facility] Basophil percentage 247 mg/dL 74-106 [facility] Basophil percentage 8.7 g/dL 6.4-8.2 [facility] Basophil percentage 0.60 mg/dL 0.20-1.00 [facility] Basophil percentage 134 mmol/L 136-145 [facility] Basophil percentage 4.0 mmol/L 3.5-5.1 [facility] Basophil percentage 101 mmol/L 98-107 [facility] Basophils (Bld) [#/Vol] 10.7 10*3/uL 4.4-11.0 [facility] Basophils (Bld) [#/Vol] 7.6 10*3/uL 2.0-7.7 [facility] Basophils/100 WBC (Bld) 0.5 % 0-1 [facility] Basophils/100 WBC (Bld) 70.5 % 47-70 [facility] Basophils/100 WBC (Bld) 0.2 % 0-5 [facility] Bilirubin [Mass/Vol] 0.60 mg/dL 0.20-1.00 [facility] Comment on above: For patients on eltr ombopag therapy, use of Dimension [place] TBIL is not recommended. Chloride [Moles/Vol] 101 mmol/L 98-107 [facility] Eosinophils/100 WBC (Bld) 0.2 % 0-5 [facility] Glucose [Mass/Vol] 247 mg/dL 74-106 [facility] Comment on above: Glucose result great er than or equal to 200 mg/dLsuggests DIABETES MELLITUS per A.D.A. criteria. Neutrophils (Bld) [#/Vol] 7.6 10*3/uL 2.0-7.7 [facility] Neutrophils/100 WBC (Bld) 70.5 % 47-70 [facility] Potassium [Moles/Vol] 4.0 mmol/L 3.5-5.1 [facility] Comment on above: Slight Hemolysis, Re sult may be falsely increased. Protein [Mass/Vol] 8.7 g/dL 6.4-8.2 [facility] Sodium [Moles/Vol] 134 mmol/L 136-145 [facility] WBC (Bld) [#/Vol] 10.7 10*3/uL 4.4-11.0 [facility] Bilirubin Test strip Ql (U)O rdered By: Carlos Calvo on 01-09-2023 Bilirubin Ql (U) Negative Negative [facility] Blood erythrocytes count (nu mber/volume)Ordered By: Carlos Calvo on 01-09-2023 RBC (Bld) [#/Vol] 5.01 10*6/uL 4.2-5.4 [facility] Blood hemoglobin measurement (mass/volume)Ordered By: Carlos Calvo on 01-09-2023 Hemoglobin (Bld) [Mass/Vol] 13.0 g/dL 12.0-15.0 [facility] Blood lymphocytes/100 leukoc ytesOrdered By: Carlos Calvo on 01-09-2023 Lymphocytes/100 WBC (Bld) 23.0 % 19-41 [facility] Blood monocytes/100 leukocyt esOrdered By: Carlos Calvo on 01-09-2023 Monocytes/100 WBC (Bld) 4.9 % 0-10 [facility] Blood platelet mean volumeOr dered By: Carlos Calvo on 01-09-2023 Platelet mean volume (Bld) [Entitic vol] 9.5 fL 6.2-12.0 [facility] Determination of erythrocyte mean corpuscular volume (MCV)Ordered By: Carlos Calvo on 01-09-2023 MCV (RBC) [Entitic vol] 79.8 fL 81-99 [facility] Glucose Glucometer (BldC) [M ass/Vol]Ordered By: Deann Guerrero on 01-09-2023 Glucose [Mass/Vol] 254 mg/dL 74-106 [facility] Comment on above: MANAGEMENT OF PATIEN T CARE PER NURSING PROTOCOL Hematocrit Auto (Bld) [Volum e fraction]Ordered By: Carlos Calvo on 01-09-2023 Hematocrit (Bld) [Volume fraction] 40.0 % 37-47 [facility] Ketones Test strip Ql (U)Ord ered By: Carlos Calvo on 01-09-2023 Ketones Ql (U) 50 mg/dl Negative [facility] Laboratory - Chemistry and C hemistry - challengeOrdered By: Carlos Calvo on 01-09-2023 HCG ( test) Ql (U) Negative [facility] Comment on above: Very dilute urine sp ecimens, as indicated by a low specificgravity, may not contain sales representative metals levels of hCG. If is still suspected, a first morning urinespecimen should be collected 48 hours later and tested. ALP [Catalytic activity/Vol] 85 U/L 45-117 [facility] ALT [Catalytic activity/Vol] 20 U/L 13-56 [facility] CO2 [Moles/Vol] 21.0 mmol/L 21.0-32.0 [facility] Globulin (S) [Mass/Vol] 5.2 g/dL 2.2-4.2 [facility] Lipase [Catalytic activity/Vol] 38 U/L 13-75 [facility] Comment on above: Please note:LIPASE r evised reference range effective 22. New Lipase methodology. Expected to produce lower values than the previous assay method. NEW Reference Range: 13 - 75 U/L Urea nitrogen/Creatinine [Mass ratio] 7.9 mg/mg 10-20 [facility] Laboratory - Hematology and Cell countsOrdered By: Carlos Calvo on 01-09-2023 Erythrocyte distribution width (RBC) [Entitic vol] 38.3 fL 35.1-43.9 [facility] Erythrocyte distribution width (RBC) [Ratio] 13.4 % 11.6-14.6 [facility] Immature granulocytes/100 WBC (Bld) 0.900 % 0.0-0.9 [facility] Comment on above: IG% - Immature Granu locytes (promyelocytes, myelocytes and metamyelocytes) > 1% indicates that a LEFT SHIFT is Present. MCH (RBC) [Entitic mass] 25.9 pg 27.0-32.0 [facility] Nucleated RBC/100 WBC (Bld) [Ratio] 0 % 0-5 [facility] MCHC Auto (RBC) [Mass/Vol]Or dered By: Carlos Calvo on 01-09-2023 MCHC (RBC) [Mass/Vol] 32.5 g/dL 32-36 [facility] Mucus LM Ql (Urine sed)Order ed By: Carlos Calvo on 01-09-2023 Mucus Ql (Urine sed) 0 SEEN /hpf [facility] Nitrite Test strip Ql (U)Ord ered By: Carlos Calvo on 01-09-2023 Nitrite Ql (U) Negative Negative [facility] No Panel InformationOrdered By: Carlos Calvo on 01-09-2023 Negative [facility] Estimated Creatinine Clearance Calc 67.55 ml/min [facility] Estimated GFR (MDRD) Amer 72 mL/min >60 [facility] Comment on above: GFR Calc Estimated GFR (MDRD) Non-Af Amer 59 mL/min >60 [facility] Comment on above: Non- GFR Calc 25.9 pg 27.0-32.0 [facility] 13.4 % 11.6-14.6 [facility] 38.3 fl 35.1-43.9 [facility] 0.900 % 0.0-0.9 [facility] 0 % 0-5 [facility] 59 mL/min >60 [facility] 72 mL/min >60 [facility] 67.55 ml/min [facility] 7.9 RATIO 10-20 [facility] 5.2 g/dL 2.2-4.2 [facility] 38 U/L 13-75 [facility] 85 U/L 45-117 [facility] 20 U/L 13-56 [facility] 21.0 mmol/L 21.0-32.0 [facility] Platelets bldOrdered By: Analia Calvo on 01-09-2023 Platelets (Bld) [#/Vol] 397 10*3/uL 150-450 [facility] Protein Test strip Ql (U)Ord ered By: Carlos Calvo on 01-09-2023 Protein Ql (U) 15 mg/dl Negative [facility] Serum or plasma albumin hussein urement (mass/volume)Ordered By: Carlos Calvo on 01-09-2023 Albumin [Mass/Vol] 3.5 g/dL 3.2-5.0 [facility] Serum or plasma albumin/glob ulin mass ratioOrdered By: Carlos Calvo on 01-09-2023 Albumin/Globulin [Mass ratio] 0.7 {ratio} 0.9-2.4 [facility] Serum or plasma calcium hussein urement (mass/volume)Ordered By: Carlos Calvo on 01-09-2023 Calcium [Mass/Vol] 9.5 mg/dL 8.5-10.1 [facility] Serum or plasma creatinine m easurement (mass/volume)Ordered By: Carlos Calvo on 01-09-2023 Creatinine [Mass/Vol] 1.14 mg/dL 0.55-1.02 [facility] Comment on above: The validity of the calculated GFR & GFRAA in patients over 70 years has not been determined. Clinical correlation is essential. Serum or plasma urea nitroge n measurement (mass/volume)Ordered By: Carlos Calvo on 01-09-2023 Urea nitrogen [Mass/Vol] 9 mg/dL 7-18 [facility] Squamous epithelial cells de tection in urine sediment by light microscopyOrdered By: Carlos Calvo on 01-09-2023 Epithelial cells.squamous LM Ql (Urine sed) 5-10 SEEN /hpf 5-10 [facility] Thin prep Papanicolaou smear with manual screeningOrdered By: Carlos Calvo on 01-09-2023 Thin prep Papanicolaou smear with manual screening 19 U/L 15-37 [facility] Comment on above: Slight Hemolysis, Re sult may be falsely increased. Thin prep Papanicolaou smear with manual screening 12 5-15 [facility] Urine blood detectionOrdered By: Carlos Calvo on 01-09-2023 RBC Ql (U) 10 /ul Negative [facility] RBC Ql (U) 0 SEEN /hpf 0-5 [facility] Urine clarityOrdered By: Analia Calvo on 01-09-2023 Clarity (U) Clear Clear [facility] Urine color determinationOrd ered By: Carlos Calvo on 01-09-2023 Color (U) Yellow Yellow [facility] Urine glucose detectionOrder ed By: Carlos Calvo on 01-09-2023 Glucose Ql (U) 1000 mg/dl Normal [facility] Urine leukocyte esterase det ection by dipstickOrdered By: Carlos Calvo on 01-09-2023 Leukocyte esterase Test strip Ql (U) 25 /ul Negative [facility] Urine pHOrdered By: Carlos mclain on 01-09-2023 pH (U) 8.0 [pH] 5.0 - 8.0 [facility] Urine sediment bacteria coun t by microscopy (number/high power field)Ordered By: Carlos Calvo on 01-09-2023 Bacteria LM.HPF (Urine sed) [#/Area] 0 /[HPF] None Seen [facility] Urine specific gravity measu rementOrdered By: Carlos Calvo on 01-09-2023 Specific gravity (U) [Rel density] 1.015 1.002-1.030 [facility] Urobilinogen Auto test strip Ql (U)Ordered By: Carlos Calvo on 01-09-2023 Urobilinogen Ql (U) Normal mg/dl Normal [facility] Absolute lymphocyte countOrd ered By: Poli Barfield on 01-07-2023 Lymphocytes Auto (Unsp spec) [#/Vol] 3.48 10*3/uL 0.83-4.51 [facility] Basophil percentageOrdered B y: Poli Barfield on 01-07-2023 Basophil percentage 202 mg/dL 74-106 [facility] Basophil percentage 135 mmol/L 136-145 [facility] Basophil percentage 3.8 mmol/L 3.5-5.1 [facility] Basophil percentage 102 mmol/L 98-107 [facility] Basophils (Bld) [#/Vol] 9.0 10*3/uL 4.4-11.0 [facility] Basophils (Bld) [#/Vol] 4.8 10*3/uL 2.0-7.7 [facility] Basophils/100 WBC (Bld) 0.4 % 0-1 [facility] Basophils/100 WBC (Bld) 53.2 % 47-70 [facility] Basophils/100 WBC (Bld) 1.0 % 0-5 [facility] Chloride [Moles/Vol] 102 mmol/L 98-107 [facility] Eosinophils/100 WBC (Bld) 1.0 % 0-5 [facility] Glucose [Mass/Vol] 202 mg/dL 74-106 [facility] Comment on above: Glucose result great er than or equal to 200 mg/dLsuggests DIABETES MELLITUS per A.D.A. criteria. Neutrophils (Bld) [#/Vol] 4.8 10*3/uL 2.0-7.7 [facility] Neutrophils/100 WBC (Bld) 53.2 % 47-70 [facility] Potassium [Moles/Vol] 3.8 mmol/L 3.5-5.1 [facility] Sodium [Moles/Vol] 135 mmol/L 136-145 [facility] WBC (Bld) [#/Vol] 9.0 10*3/uL 4.4-11.0 [facility] Blood erythrocytes count (nu mber/volume)Ordered By: Poli Barfield on 01-07-2023 RBC (Bld) [#/Vol] 4.92 10*6/uL 4.2-5.4 [facility] Blood hemoglobin measurement (mass/volume)Ordered By: Poli Barfield on 01-07-2023 Hemoglobin (Bld) [Mass/Vol] 12.7 g/dL 12.0-15.0 [facility] Blood lymphocytes/100 leukoc ytesOrdered By: Poli Barfield on 01-07-2023 Lymphocytes/100 WBC (Bld) 38.5 % 19-41 [facility] Blood monocytes/100 leukocyt esOrdered By: Poli Barfield on 01-07-2023 Monocytes/100 WBC (Bld) 5.9 % 0-10 [facility] Blood platelet mean volumeOr dered By: Poli Barfield on 01-07-2023 Platelet mean volume (Bld) [Entitic vol] 9.1 fL 6.2-12.0 [facility] Determination of erythrocyte mean corpuscular volume (MCV)Ordered By: Poli Barfield on 01-07-2023 MCV (RBC) [Entitic vol] 79.7 fL 81-99 [facility] Glucose Glucometer (dC) [M ass/Vol]Ordered By: Poli Barfield on 01-07-2023 Glucose [Mass/Vol] 206 mg/dL 74-106 [facility] Comment on above: MANAGEMENT OF PATIEN T CARE PER NURSING PROTOCOL Hematocrit Auto (Bld) [Volum e fraction]Ordered By: Poli Barfield on 01-07-2023 Hematocrit (Bld) [Volume fraction] 39.2 % 37-47 [facility] Laboratory - Chemistry and C hemistry - challengeOrdered By: Poli Barfield on 01-07-2023 HCG ( test) Ql (U) Negative [facility] Comment on above: Very dilute urine sp ecimens, as indicated by a low specificgravity, may not contain sales representative metals levels of hCG. If is still suspected, a first morning urinespecimen should be collected 48 hours later and tested. CO2 [Moles/Vol] 24.0 mmol/L 21.0-32.0 [facility] Urea nitrogen/Creatinine [Mass ratio] 8.9 mg/mg 10-20 [facility] Laboratory - Drug toxicology Ordered By: Poli Barfield on 01-07-2023 Amphetamines Ql (U) Negative <1000 ng/mL [facility] Benzodiazepines Ql (U) Negative < 200 ng/mL [facility] Cannabinoids Screen Ql (U) Positive < 50 ng/mL [facility] Cocaine Ql (U) Negative < 300 ng/mL [facility] Opiates Ql (U) Negative < 300 ng/mL [facility] Laboratory - Hematology and Cell countsOrdered By: Poli Barfield on 01-07-2023 Erythrocyte distribution width (RBC) [Entitic vol] 38.9 fL 35.1-43.9 [facility] Erythrocyte distribution width (RBC) [Ratio] 13.5 % 11.6-14.6 [facility] Immature granulocytes/100 WBC (Bld) 1.000 % 0.0-0.9 [facility] Comment on above: IG% - Immature Granu locytes (promyelocytes, myelocytes and metamyelocytes) > 1% indicates that a LEFT SHIFT is Present. MCH (RBC) [Entitic mass] 25.8 pg 27.0-32.0 [facility] Nucleated RBC/100 WBC (Bld) [Ratio] 0 % 0-5 [facility] MCHC Auto (RBC) [Mass/Vol]Or dered By: Poli Barfield on 01-07-2023 MCHC (RBC) [Mass/Vol] 32.4 g/dL 32-36 [facility] No Panel InformationOrdered By: Poli Bafrield on 01-07-2023 MDMA (Ecstasy) Screen Positive < 500 ng/mL [facility] Urine Barbiturates Screen Negative < 200 ng/mL [facility] Urine Drug Screen Comment [facility] Comment on above: CONFIRMATORY TESTING FOR [...] Methadone Screen Negative < 300 ng/mL [facility] Negative < 300 ng/mL [facility] Positive < 50 ng/mL [facility] Estimated Creatinine Clearance Calc 68.76 ml/min [facility] Estimated GFR (MDRD) Amer 73 mL/min >60 [facility] Comment on above: GFR Calc Estimated GFR (MDRD) Non-Af Amer 60 mL/min >60 [facility] Comment on above: Non- GFR Calc 25.8 pg 27.0-32.0 [facility] 13.5 % 11.6-14.6 [facility] 38.9 fl 35.1-43.9 [facility] 1.000 % 0.0-0.9 [facility] 0 % 0-5 [facility] 60 mL/min >60 [facility] 73 mL/min >60 [facility] 68.76 ml/min [facility] 8.9 RATIO 10-20 [facility] 24.0 mmol/L 21.0-32.0 [facility] Platelets bldOrdered By: Devon Barfield on 01-07-2023 Platelets (Bld) [#/Vol] 380 10*3/uL 150-450 [facility] Serum or plasma calcium hussein urement (mass/volume)Ordered By: Poli Barfield on 01-07-2023 Calcium [Mass/Vol] 9.0 mg/dL 8.5-10.1 [facility] Serum or plasma creatinine m easurement (mass/volume)Ordered By: Poli Barfield on 01-07-2023 Creatinine [Mass/Vol] 1.12 mg/dL 0.55-1.02 [facility] Comment on above: The validity of the calculated GFR & GFRAA in patients over 70 years has not been determined. Clinical correlation is essential. Serum or plasma urea nitroge n measurement (mass/volume)Ordered By: Poli Barfield on 01-07-2023 Urea nitrogen [Mass/Vol] 10 mg/dL 7-18 [facility] Thin prep Papanicolaou smear with manual screeningOrdered By: Poli Barfield on 01-07-2023 Thin prep Papanicolaou smear with manual screening 9 5-15 [facility] Urine phencyclidine (PCP) de tectionOrdered By: Poli Barfield on 01-07-2023 Phencyclidine Ql (U) Negative < 25 ng/mL [facility] Basophil percentageOrdered B y: Amy Solorzano on 11-25-2022 Basophil percentage 493 mg/dL 74-106 [facility] Basophil percentage 8.0 g/dL 6.4-8.2 [facility] Basophil percentage 0.20 mg/dL 0.20-1.00 [facility] Basophil percentage 130 mmol/L 136-145 [facility] Basophil percentage 4.3 mmol/L 3.5-5.1 [facility] Basophil percentage 99 mmol/L 98-107 [facility] Basophils (Bld) [#/Vol] 8.2 10*3/uL 4.4-11.0 [facility] Bilirubin [Mass/Vol] 0.20 mg/dL 0.20-1.00 [facility] Comment on above: For patients on eltr ombopag therapy, use of Dimension [place] TBIL is not recommended. Chloride [Moles/Vol] 99 mmol/L 98-107 [facility] Glucose [Mass/Vol] 493 mg/dL 74-106 [facility] Comment on above: Critical Result(s) C alled at: 11:44:33 11/25/2022 by: NICOLE PATE TO GHISLAINE MCQUEEN. Results read back by same.Glucose result greater than or equal to 200 mg/dLsuggests DIABETES MELLITUS per A.D.A. criteria. Potassium [Moles/Vol] 4.3 mmol/L 3.5-5.1 [facility] Protein [Mass/Vol] 8.0 g/dL 6.4-8.2 [facility] Sodium [Moles/Vol] 130 mmol/L 136-145 [facility] WBC (Bld) [#/Vol] 8.2 10*3/uL 4.4-11.0 [facility] Blood erythrocytes count (nu mber/volume)Ordered By: Amy Solorzano on 11-25-2022 RBC (Bld) [#/Vol] 4.74 10*6/uL 4.2-5.4 [facility] Blood hemoglobin measurement (mass/volume)Ordered By: Amy Solorzano on 11-25-2022 Hemoglobin (Bld) [Mass/Vol] 12.5 g/dL 12.0-15.0 [facility] Blood platelet mean volumeOr dered By: Amy Solorzano on 11-25-2022 Platelet mean volume (Bld) [Entitic vol] 9.5 fL 6.2-12.0 [facility] Determination of erythrocyte mean corpuscular volume (MCV)Ordered By: Amy Solorzano on 11-25-2022 MCV (RBC) [Entitic vol] 80.2 fL 81-99 [facility] Hematocrit Auto (Bld) [Volum e fraction]Ordered By: Amy Solorzano on 11-25-2022 Hematocrit (Bld) [Volume fraction] 38.0 % 37-47 [facility] Laboratory - Chemistry and C hemistry - challengeOrdered By: Amy Solorzano on 11-25-2022 ALP [Catalytic activity/Vol] 110 U/L 45-117 [facility] ALT [Catalytic activity/Vol] 26 U/L 13-56 [facility] CO2 [Moles/Vol] 19.0 mmol/L 21.0-32.0 [facility] Globulin (S) [Mass/Vol] 5.0 g/dL 2.2-4.2 [facility] Urea nitrogen/Creatinine [Mass ratio] 11.3 mg/mg 10-20 [facility] Laboratory - Hematology and Cell countsOrdered By: Amy Solorzano on 11-25-2022 Erythrocyte distribution width (RBC) [Entitic vol] 40.1 fL 35.1-43.9 [facility] Erythrocyte distribution width (RBC) [Ratio] 13.9 % 11.6-14.6 [facility] MCH (RBC) [Entitic mass] 26.4 pg 27.0-32.0 [facility] Auto (RBC) [Mass/Vol]Or dered By: Amy Solorzano on 11-25-2022 MCHC (RBC) [Mass/Vol] 32.9 g/dL 32-36 [facility] No Panel InformationOrdered By: Amy Solorzano on 11-25-2022 Estimated GFR (MDRD) Amer 71 mL/min >60 [facility] Comment on above: GFR Calc Estimated GFR (MDRD) Non-Af Amer 59 mL/min >60 [facility] Comment on above: Non- GFR Calc 26.4 pg 27.0-32.0 [facility] 13.9 % 11.6-14.6 [facility] 40.1 fl 35.1-43.9 [facility] 59 mL/min >60 [facility] 71 mL/min >60 [facility] 11.3 RATIO 10-20 [facility] 5.0 g/dL 2.2-4.2 [facility] 110 U/L 45-117 [facility] 26 U/L 13-56 [facility] 19.0 mmol/L 21.0-32.0 [facility] Platelets bldOrdered By: Glendy Solorzano on 11-25-2022 Platelets (Bld) [#/Vol] 375 10*3/uL 150-450 [facility] Serum or plasma albumin hussein urement (mass/volume)Ordered By: Amy Solorzano on 11-25-2022 Albumin [Mass/Vol] 3.0 g/dL 3.2-5.0 [facility] Serum or plasma albumin/glob ulin mass ratioOrdered By: Amy Solorzano on 11-25-2022 Albumin/Globulin [Mass ratio] 0.6 {ratio} 0.9-2.4 [facility] Serum or plasma calcium hussein urement (mass/volume)Ordered By: Amy Solorzano on 11-25-2022 Calcium [Mass/Vol] 8.2 mg/dL 8.5-10.1 [facility] Serum or plasma creatinine m easurement (mass/volume)Ordered By: Amy Solorzano on 11-25-2022 Creatinine [Mass/Vol] 1.15 mg/dL 0.55-1.02 [facility] Comment on above: The validity of the calculated GFR & GFRAA in patients over 70 years has not been determined. Clinical correlation is essential. Serum or plasma urea nitroge n measurement (mass/volume)Ordered By: Amy Solorzano on 11-25-2022 Urea nitrogen [Mass/Vol] 13 mg/dL 7-18 [facility] Thin prep Papanicolaou smear with manual screeningOrdered By: Amy Solorzano on 11-25-2022 Thin prep Papanicolaou smear with manual screening 15 U/L 15-37 [facility] Thin prep Papanicolaou smear with manual screening 12 5-15 [facility] Thin prep Papanicolaou smear with manual screening 6.1 mg/L NO RANGE EST. [facility] Whole blood hemoglobin A1c/t otal hemoglobin ratio (mass fraction)Ordered By: Amy Solorzano on 11-25-2022 HbA1c (Bld) [Mass fraction] 12.1 % 3.8-5.6 [facility] Comment on above: Normal < 5.7 % Predi abetic 5.7 - 6.4 % Diabetic >or= 6.5 % Please note range changes. Absolute lymphocyte countOrd ered By: Dr. Villatoro on 08-15-2022 Lymphocytes Auto (Unsp spec) [#/Vol] 2.49 10*3/uL 0.83-4.51 [facility] Basophil percentageOrdered B y: Dr. Villatoro on 08-15-2022 Basophils/100 WBC (Bld) 0.4 % 0-1 [facility] Chloride [Moles/Vol] 104 mmol/L 98-107 [facility] Eosinophils/100 WBC (Bld) 0.9 % 0-5 [facility] Glucose [Mass/Vol] 215 mg/dL 74-106 [facility] Comment on above: Glucose result great er than or equal to 200 mg/dLsuggests DIABETES MELLITUS per A.D.A. criteria. Neutrophils (Bld) [#/Vol] 5.7 10*3/uL 2.0-7.7 [facility] Neutrophils/100 WBC (Bld) 62.3 % 47-70 [facility] Potassium [Moles/Vol] 4.0 mmol/L 3.5-5.1 [facility] Sodium [Moles/Vol] 137 mmol/L 136-145 [facility] WBC (Bld) [#/Vol] 9.2 10*3/uL 4.4-11.0 [facility] Blood erythrocytes count (nu mber/volume)Ordered By: Dr. Villatoro on 08-15-2022 RBC (Bld) [#/Vol] 3.60 10*6/uL 4.2-5.4 [facility] Blood hemoglobin measurement (mass/volume)Ordered By: Dr. Villatoro on 08-15-2022 Hemoglobin (Bld) [Mass/Vol] 9.2 g/dL 12.0-15.0 [facility] Blood lymphocytes/100 leukoc ytesOrdered By: Dr. Villatoro on 08-15-2022 Lymphocytes/100 WBC (Bld) 27.1 % 19-41 [facility] Blood monocytes/100 leukocyt esOrdered By: Dr. Villatoro on 08-15-2022 Monocytes/100 WBC (Bld) 8.2 % 0-10 [facility] Blood platelet mean volumeOr dered By: Dr. Villatoro on 08-15-2022 Platelet mean volume (Bld) [Entitic vol] 9.0 fL 6.2-12.0 [facility] Determination of erythrocyte mean corpuscular volume (MCV)Ordered By: Dr. Villatoro on 08-15-2022 MCV (RBC) [Entitic vol] 81.4 fL 81-99 [facility] Glucose Glucometer (BldC) [M ass/Vol]Ordered By: Dr. Villatoro on 08-15-2022 Glucose [Mass/Vol] 290 mg/dL 74-106 [facility] Comment on above: MANAGEMENT OF PATIEN T CARE PER NURSING PROTOCOL Hematocrit Auto (Bld) [Volum e fraction]Ordered By: Dr. Villatoro on 08-15-2022 Hematocrit (Bld) [Volume fraction] 29.3 % 37-47 [facility] Laboratory - Chemistry and C hemistry - challengeOrdered By: Dr. Villatoro on 08-15-2022 CO2 [Moles/Vol] 24.0 mmol/L 21.0-32.0 [facility] Urea nitrogen/Creatinine [Mass ratio] 7.1 mg/mg 10-20 [facility] Laboratory - Hematology and Cell countsOrdered By: Dr. Villatoro on 08-15-2022 Erythrocyte distribution width (RBC) [Entitic vol] 38.4 fL 35.1-43.9 [facility] Erythrocyte distribution width (RBC) [Ratio] 12.9 % 11.6-14.6 [facility] Immature granulocytes/100 WBC (Bld) 1.100 % 0.0-0.9 [facility] Comment on above: IG% - Immature Granu locytes (promyelocytes, myelocytes and metamyelocytes) > 1% indicates that a LEFT SHIFT is Present. MCH (RBC) [Entitic mass] 25.6 pg 27.0-32.0 [facility] Nucleated RBC/100 WBC (Bld) [Ratio] 0 % 0-5 [facility] MCHC Auto (RBC) [Mass/Vol]Or dered By: Dr. Villatoro on 08-15-2022 MCHC (RBC) [Mass/Vol] 31.4 g/dL 32-36 [facility] No Panel InformationOrdered By: Dr. Villatoro on 08-15-2022 Estimated Creatinine Clearance Calc 110.01 ml/min [facility] Estimated GFR (MDRD) Amer 125 mL/min >60 [facility] Comment on above: GFR Calc Estimated GFR (MDRD) Non-Af Amer 104 mL/min >60 [facility] Comment on above: Non- GFR Calc Platelets bldOrdered By: Dr. Villatoro on 08-15-2022 Platelets (Bld) [#/Vol] 458 10*3/uL 150-450 [facility] Serum or plasma C reactive p rotein measurement (mass/volume)Ordered By: Dr. Villatoro on 08-15-2022 CRP [Mass/Vol] 119.00 mg/L 0.0-3.0 [facility] Comment on above: C-Reactive Protein ( CRP) provides useful information for thediagnosis, therapy and monitoring of inflammatory processesand associated diseases. For the evaluation of Relative Riskfor Cardiovascular Disease, a High Sensitivity CRP (HSCRP)should be ordered. Serum or plasma calcium hussein urement (mass/volume)Ordered By: Dr. Villatoro on 08-15-2022 Calcium [Mass/Vol] 8.4 mg/dL 8.5-10.1 [facility] Serum or plasma creatinine m easurement (mass/volume)Ordered By: Dr. Villatoro on 08-15-2022 Creatinine [Mass/Vol] 0.70 mg/dL 0.55-1.02 [facility] Comment on above: The validity of the calculated GFR & GFRAA in patients over 70 years has not been determined. Clinical correlation is essential. Serum or plasma urea nitroge n measurement (mass/volume)Ordered By: Dr. Villatoro on 08-15-2022 Urea nitrogen [Mass/Vol] 5 mg/dL 7-18 [facility] Thin prep Papanicolaou smear with manual screeningOrdered By: Dr. Villatoro on 08-15-2022 Thin prep Papanicolaou smear with manual screening 9 5-15 [facility] Culture, urineOrdered By: Dr Marine Christiansen on 08-14-2022 Bacteria identified Cx Nom (U) Escherichia coli [facility] Basophil percentageOrdered B y: Dr. Urbina on 08-13-2022 Bilirubin [Mass/Vol] 0.50 mg/dL 0.20-1.00 [facility] Comment on above: For patients on eltr ombopag therapy, use of Dimension [place] TBIL is not recommended. Protein [Mass/Vol] 8.1 g/dL 6.4-8.2 [facility] Erythrocyte sedimentation ra teOrdered By: Dr. Villatoro on 08-13-2022 ESR (Bld) [Velocity] 43 mm/h 0-30 [facility] Laboratory - Chemistry and C hemistry - challengeOrdered By: Dr. Urbina on 08-13-2022 ALP [Catalytic activity/Vol] 99 U/L 45-117 [facility] ALT [Catalytic activity/Vol] 11 U/L 13-56 [facility] Globulin (S) [Mass/Vol] 5.6 g/dL 2.2-4.2 [facility] Magnesium [Mass/Vol] 2.2 mg/dL 1.6-2.6 [facility] Serum or plasma albumin hussein urement (mass/volume)Ordered By: Dr. Urbina on 08-13-2022 Albumin [Mass/Vol] 2.5 g/dL 3.2-5.0 [facility] Serum or plasma albumin/glob ulin mass ratioOrdered By: Dr. Urbina on 08-13-2022 Albumin/Globulin [Mass ratio] 0.4 {ratio} 0.9-2.4 [facility] Thin prep Papanicolaou smear with manual screeningOrdered By: Dr. Urbina on 08-13-2022 Thin prep Papanicolaou smear with manual screening 8 U/L 15-37 [facility] Absolute lymphocyte countOrd ered By: Dr. Christiansen on 08-12-2022 Lymphocytes Auto (Unsp spec) [#/Vol] 3.81 10*3/uL 0.83-4.51 [facility] Basophil percentageOrdered B y: Dr. Christiansen on 08-12-2022 Basophil percentage 10-25 SEEN /hpf 0-5 [facility] Basophils/100 WBC (Bld) 0.3 % 0-1 [facility] Bilirubin [Mass/Vol] 0.50 mg/dL 0.20-1.00 [facility] Comment on above: For patients on eltr ombopag therapy, use of Dimension [place] TBIL is not recommended. Chloride [Moles/Vol] 95 mmol/L 98-107 [facility] Eosinophils/100 WBC (Bld) 0.1 % 0-5 [facility] Glucose [Mass/Vol] 230 mg/dL 74-106 [facility] Comment on above: Glucose result great er than or equal to 200 mg/dLsuggests DIABETES MELLITUS per A.D.A. criteria. Neutrophils (Bld) [#/Vol] 13.2 10*3/uL 2.0-7.7 [facility] Neutrophils/100 WBC (Bld) 69.8 % 47-70 [facility] Potassium [Moles/Vol] 3.9 mmol/L 3.5-5.1 [facility] Comment on above: Slight Hemolysis, Re sult may be falsely increased. Protein [Mass/Vol] 9.2 g/dL 6.4-8.2 [facility] Sodium [Moles/Vol] 130 mmol/L 136-145 [facility] WBC (Bld) [#/Vol] 18.9 10*3/uL 4.4-11.0 [facility] Bilirubin Test strip Ql (U)O rdered By: Dr. Christiansen on 08-12-2022 Bilirubin Ql (U) Negative Negative [facility] Blood erythrocytes count (nu mber/volume)Ordered By: Dr. Christiansen on 08-12-2022 RBC (Bld) [#/Vol] 4.35 10*6/uL 4.2-5.4 [facility] Blood hemoglobin measurement (mass/volume)Ordered By: Dr. Christiansen on 08-12-2022 Hemoglobin (Bld) [Mass/Vol] 11.4 g/dL 12.0-15.0 [facility] Blood lymphocytes/100 leukoc ytesOrdered By: Dr. Christiansen on 08-12-2022 Lymphocytes/100 WBC (Bld) 20.1 % 19-41 [facility] Blood manual differential co mment interpretation (narrative result)Ordered By: Dr. Christiansen on 08-12-2022 Manual differential comment Franky (Bld) [Interp] SCANNED [facility] Comment on above: MONOCYTOSIS NOTED Blood monocytes/100 leukocyt esOrdered By: Dr. Christiansen on 08-12-2022 Monocytes/100 WBC (Bld) 8.7 % 0-10 [facility] Blood platelet mean volumeOr dered By: Dr. Christiansen on 08-12-2022 Platelet mean volume (Bld) [Entitic vol] 9.3 fL 6.2-12.0 [facility] Determination of erythrocyte mean corpuscular volume (MCV)Ordered By: Dr. Christiansen on 08-12-2022 MCV (RBC) [Entitic vol] 78.2 fL 81-99 [facility] Glucose Glucometer (BldC) [M ass/Vol]Ordered By: Dr. Urbina on 08-12-2022 Glucose [Mass/Vol] 212 mg/dL 74-106 [facility] Comment on above: MANAGEMENT OF PATIEN T CARE PER NURSING PROTOCOL Hematocrit Auto (Bld) [Volum e fraction]Ordered By: Dr. Christiansen on 08-12-2022 Hematocrit (Bld) [Volume fraction] 34.0 % 37-47 [facility] Ketones Test strip Ql (U)Ord ered By: Dr. Christiansen on 08-12-2022 Ketones Ql (U) 15 mg/dl Negative [facility] Laboratory - Chemistry and C hemistry - challengeOrdered By: Dr. Christiansen on 08-12-2022 ALP [Catalytic activity/Vol] 136 U/L 45-117 [facility] ALT [Catalytic activity/Vol] 13 U/L 13-56 [facility] CO2 [Moles/Vol] 23.0 mmol/L 21.0-32.0 [facility] Globulin (S) [Mass/Vol] 6.3 g/dL 2.2-4.2 [facility] Magnesium [Mass/Vol] 1.6 mg/dL 1.6-2.6 [facility] Comment on above: Slight Hemolysis, Re sult may be falsely increased. Urea nitrogen/Creatinine [Mass ratio] 7.2 mg/mg 10-20 [facility] Laboratory - Hematology and Cell countsOrdered By: Dr. Christiansen on 08-12-2022 Erythrocyte distribution width (RBC) [Entitic vol] 36.9 fL 35.1-43.9 [facility] Erythrocyte distribution width (RBC) [Ratio] 12.9 % 11.6-14.6 [facility] Immature granulocytes/100 WBC (Bld) 1.000 % 0.0-0.9 [facility] Comment on above: IG% - Immature Granu locytes (promyelocytes, myelocytes and metamyelocytes) > 1% indicates that a LEFT SHIFT is Present. MCH (RBC) [Entitic mass] 26.2 pg 27.0-32.0 [facility] Nucleated RBC/100 WBC (Bld) [Ratio] 0 % 0-5 [facility] MCHC Auto (RBC) [Mass/Vol]Or dered By: Dr. Christiansen on 08-12-2022 MCHC (RBC) [Mass/Vol] 33.5 g/dL 32-36 [facility] Mucus LM Ql (Urine sed)Order ed By: Dr. Christiansen on 08-12-2022 Mucus Ql (Urine sed) 0 SEEN /hpf [facility] Nitrite Test strip Ql (U)Ord ered By: Dr. Christiansen on 08-12-2022 Nitrite Ql (U) Negative Negative [facility] No Panel InformationOrdered By: Dr. Christiansen on 08-12-2022 Estimated Creatinine Clearance Calc 69.38 ml/min [facility] Estimated GFR (MDRD) Amer 74 mL/min >60 [facility] Comment on above: GFR Calc Estimated GFR (MDRD) Non-Af Amer 61 mL/min >60 [facility] Comment on above: Non- GFR Calc Troponin I High Sensitivity 6 pg/mL 3.0-54.0 [facility] Comment on above: Please Note: New Catherine t Units and Gender Specific Reference Ranges. For more information see Policy Stat Procedure [place] High Sensitivity Troponin (TNIH) and attachments. Platelets bldOrdered By: Dr. Christiansen on 08-12-2022 Platelets (Bld) [#/Vol] 453 10*3/uL 150-450 [facility] Protein Test strip Ql (U)Ord ered By: Dr. Christiansen on 08-12-2022 Protein Ql (U) 100 mg/dl Negative [facility] Review by pathologistOrdered By: Dr. Christiansen on 08-12-2022 Pathologist review Franky (Unsp spec) [Interp] Zahraa waite [facility] Pathologist review Franky (Unsp spec) [Interp] Reviewed [facility] Comment on above: Previous reported re sult: Zahraa waite Edited by: RGOHEIDI on 08/14/22:0949Neutrophilic leukocytosis.Microcytic RBCs.Clinical correlation suggested.Franki Glez D.O. 08/14/22 AMENDED REPORT 08/14/22 0949 PATH REV previously reported as: Zahraa waite Serum or plasma acetone hussein urement (mass/volume)Ordered By: Dr. Christiansen on 08-12-2022 Acetone [Mass/Vol] Negative NEG [facility] Serum or plasma albumin hussein urement (mass/volume)Ordered By: Dr. Christiansen on 08-12-2022 Albumin [Mass/Vol] 2.9 g/dL 3.2-5.0 [facility] Serum or plasma albumin/glob ulin mass ratioOrdered By: Dr. Christiansen on 08-12-2022 Albumin/Globulin [Mass ratio] 0.5 {ratio} 0.9-2.4 [facility] Serum or plasma calcium hussein urement (mass/volume)Ordered By: Dr. Christiansen on 08-12-2022 Calcium [Mass/Vol] 9.6 mg/dL 8.5-10.1 [facility] Serum or plasma creatinine m easurement (mass/volume)Ordered By: Dr. Christiansen on 08-12-2022 Creatinine [Mass/Vol] 1.11 mg/dL 0.55-1.02 [facility] Comment on above: The validity of the calculated GFR & GFRAA in patients over 70 years has not been determined. Clinical correlation is essential. Serum or plasma urea nitroge n measurement (mass/volume)Ordered By: Dr. Christiansen on 08-12-2022 Urea nitrogen [Mass/Vol] 8 mg/dL 7-18 [facility] Squamous epithelial cells de tection in urine sediment by light microscopyOrdered By: Dr. Christiansen on 08-12-2022 Epithelial cells.squamous LM Ql (Urine sed) 0-5 SEEN /hpf 5-10 [facility] Thin prep Papanicolaou smear with manual screeningOrdered By: Dr. Christiansen on 08-12-2022 Thin prep Papanicolaou smear with manual screening 20 U/L 15-37 [facility] Comment on above: Slight Hemolysis, Re sult may be falsely increased. Thin prep Papanicolaou smear with manual screening 12 5-15 [facility] Urine blood detectionOrdered By: Dr. Christiansen on 08-12-2022 RBC Ql (U) 150 /ul Negative [facility] RBC Ql (U) 0 SEEN /hpf 0-5 [facility] Urine clarityOrdered By: Dr. Christiansen on 08-12-2022 Clarity (U) Clear Clear [facility] Urine color determinationOrd ered By: Dr. Christiansen on 08-12-2022 Color (U) Yellow Yellow [facility] Urine glucose detectionOrder ed By: Dr. Christiansen on 08-12-2022 Glucose Ql (U) 50 mg/dl Normal [facility] Urine leukocyte esterase det ection by dipstickOrdered By: Dr. Christiansen on 08-12-2022 Leukocyte esterase Test strip Ql (U) 100 /ul Negative [facility] Urine pHOrdered By: Dr. Ethan arriola on 08-12-2022 pH (U) 6.0 [pH] 5.0 - 8.0 [facility] Urine sediment bacteria coun t by microscopy (number/high power field)Ordered By: Dr. Christiansen on 08-12-2022 Bacteria LM.HPF (Urine sed) [#/Area] 0 /[HPF] None Seen [facility] Urine specific gravity measu rementOrdered By: Dr. Christiansen on 08-12-2022 Specific gravity (U) [Rel density] 1.010 1.002-1.030 [facility] Urobilinogen Auto test strip Ql (U)Ordered By: Dr. Christiansen on 08-12-2022 Urobilinogen Ql (U) Normal mg/dl Normal [facility] Acid fast bacilli (AFB) cult ureOrdered By: Dr. Matias on 08-09-2022 Mycobacterium sp identified Org specific cx Nom (Unsp spec) [facility] Thin prep Papanicolaou smear with manual screeningOrdered By: Dr. Matias on 08-09-2022 Thin prep Papanicolaou smear with manual screening [facility] Absolute lymphocyte countOrd ered By: Dr. Rao on 06-29-2022 Lymphocytes Auto (Unsp spec) [#/Vol] 2.81 10*3/uL 0.83-4.51 [facility] Basophil percentageOrdered B y: Dr. Rao on 06-29-2022 Basophils/100 WBC (Bld) 0.7 % 0-1 [facility] Chloride [Moles/Vol] 105 mmol/L 98-107 [facility] Eosinophils/100 WBC (Bld) 1.3 % 0-5 [facility] Glucose [Mass/Vol] 192 mg/dL 74-106 [facility] Comment on above: Fasting Glucose resu lt greater than or equal to 126 mg/dL suggests DIABETES MELLITUS per A.D.A. criteria. Neutrophils (Bld) [#/Vol] 4.2 10*3/uL 2.0-7.7 [facility] Neutrophils/100 WBC (Bld) 51.1 % 47-70 [facility] Potassium [Moles/Vol] 3.9 mmol/L 3.5-5.1 [facility] Sodium [Moles/Vol] 136 mmol/L 136-145 [facility] WBC (Bld) [#/Vol] 8.2 10*3/uL 4.4-11.0 [facility] Blood erythrocytes count (nu mber/volume)Ordered By: Dr. Rao on 06-29-2022 RBC (Bld) [#/Vol] 4.46 10*6/uL 4.2-5.4 [facility] Blood hemoglobin measurement (mass/volume)Ordered By: Dr. Rao on 06-29-2022 Hemoglobin (Bld) [Mass/Vol] 11.7 g/dL 12.0-15.0 [facility] Blood lymphocytes/100 leukoc ytesOrdered By: Dr. Rao on 06-29-2022 Lymphocytes/100 WBC (Bld) 34.3 % 19-41 [facility] Blood monocytes/100 leukocyt esOrdered By: Dr. Rao on 06-29-2022 Monocytes/100 WBC (Bld) 9.9 % 0-10 [facility] Blood platelet mean volumeOr dered By: Dr. Rao on 06-29-2022 Platelet mean volume (Bld) [Entitic vol] 9.1 fL 6.2-12.0 [facility] Determination of erythrocyte mean corpuscular volume (MCV)Ordered By: Dr. Rao on 06-29-2022 MCV (RBC) [Entitic vol] 81.8 fL 81-99 [facility] Glucose Glucometer (BldC) [M ass/Vol]Ordered By: Dr. Lr on 06-29-2022 Glucose [Mass/Vol] 251 mg/dL 74-106 [facility] Comment on above: MANAGEMENT OF PATIEN T CARE PER NURSING PROTOCOL Hematocrit Auto (Bld) [Volum e fraction]Ordered By: Dr. Rao on 06-29-2022 Hematocrit (Bld) [Volume fraction] 36.5 % 37-47 [facility] Laboratory - Chemistry and C hemistry - challengeOrdered By: Dr. Rao on 06-29-2022 CO2 [Moles/Vol] 24.0 mmol/L 21.0-32.0 [facility] Urea nitrogen/Creatinine [Mass ratio] 18.4 mg/mg 10-20 [facility] Laboratory - Hematology and Cell countsOrdered By: Dr. Rao on 06-29-2022 Erythrocyte distribution width (RBC) [Entitic vol] 41.2 fL 35.1-43.9 [facility] Erythrocyte distribution width (RBC) [Ratio] 14.1 % 11.6-14.6 [facility] Immature granulocytes/100 WBC (Bld) 2.700 % 0.0-0.9 [facility] Comment on above: IG% - Immature Granu locytes (promyelocytes, myelocytes and metamyelocytes) > 1% indicates that a LEFT SHIFT is Present. MCH (RBC) [Entitic mass] 26.2 pg 27.0-32.0 [facility] Nucleated RBC/100 WBC (Bld) [Ratio] 0.2 % 0-5 [facility] Laboratory - Microbiology an d Antimicrobial susceptibilityOrdered By: Dr. Hinson on 06-29-2022 Bacteria identified Cx Nom (Bld) No growth in 5 days. [facility] MCHC Auto (RBC) [Mass/Vol]Or dered By: Dr. Rao on 06-29-2022 MCHC (RBC) [Mass/Vol] 32.1 g/dL 32-36 [facility] No Panel InformationOrdered By: Dr. Rao on 06-29-2022 Estimated Creatinine Clearance Calc 108.46 ml/min [facility] Estimated GFR (MDRD) Amer 125 mL/min >60 [facility] Comment on above: GFR Calc Estimated GFR (MDRD) Non-Af Amer 103 mL/min >60 [facility] Comment on above: Non- GFR Calc Platelets bldOrdered By: Dr. Rao on 06-29-2022 Platelets (Bld) [#/Vol] 363 10*3/uL 150-450 [facility] Serum or plasma calcium hussein urement (mass/volume)Ordered By: Dr. Rao on 06-29-2022 Calcium [Mass/Vol] 8.4 mg/dL 8.5-10.1 [facility] Serum or plasma creatinine m easurement (mass/volume)Ordered By: Dr. Rao on 06-29-2022 Creatinine [Mass/Vol] 0.71 mg/dL 0.55-1.02 [facility] Comment on above: The validity of the calculated GFR & GFRAA in patients over 70 years has not been determined. Clinical correlation is essential. Serum or plasma urea nitroge n measurement (mass/volume)Ordered By: Dr. Rao on 06-29-2022 Urea nitrogen [Mass/Vol] 13 mg/dL 7-18 [facility] Thin prep Papanicolaou smear with manual screeningOrdered By: Dr. Rao on 06-29-2022 Thin prep Papanicolaou smear with manual screening 7 5-15 [facility] Vancomycin troughOrdered By: Dr. Rao on 06-28-2022 Vancomycin trough [Mass/Vol] 15.6 ug/mL 5.0-15.0 [facility] Comment on above: VANCOMYCIN STANDARED DRUG THERAPY TROUGH LEVEL: 5.0 - 15.0 mg/L VANCOMYCIN HIGH INTENSITY THERAPY TROUGH LEVEL: 15.0 - 20.0 mg/L High Intensity therapy recommended for serious lifethreatening infections include:- Ualxsdjzen-Trzrwhjkbeyq-Pgzckgwor (Ventilator/Healtcare Associated)-Sepsis PLEASE CONTACT PHARMACY SERVICES (#4510) FOR INTERPRETATIONOF RESULTS. Bacteria identified Cx Nom ( Wound)Ordered By: Dr. Matias on 06-26-2022 Wound Culture Streptococcus agalactiae (B) [facility] Culture, urineOrdered By: Dr Marine Hinson on 06-26-2022 Bacteria identified Cx Nom (U) Culture exhibits no growth. [facility] Laboratory - Chemistry and C hemistry - challengeOrdered By: Dr. Morton on 06-26-2022 HCG ( test) Ql (U) Negative [facility] Comment on above: Very dilute urine sp ecimens, as indicated by a low specificgravity, may not contain sales representative metals levels of hCG. If is still suspected, a first morning urinespecimen should be collected 48 hours later and tested. Absolute lymphocyte counton 06-25-2022 Lymphocytes Auto (Unsp spec) [#/Vol] 3.27 10*3/uL 0.83-4.51 [facility] Work Phone: Basophil percentageon 2021 Basophils/100 WBC (Bld) 0.7 % 0-1 [facility] Work Phone: Chloride [Moles/Vol] 104 mmol/L 98-107 [facility] Work Phone: Eosinophils/100 WBC (Bld) 1.2 % 0-5 [facility] Work Phone: Glucose [Mass/Vol] 261 mg/dL 74-106 [facility] Work Phone: Comment on above: Glucose result great er than or equal to 200 mg/dLsuggests DIABETES MELLITUS per A.D.A. criteria. Neutrophils (Bld) [#/Vol] 4.8 10*3/uL 2.0-7.7 [facility] Work Phone: Neutrophils/100 WBC (Bld) 53.1 % 47-70 [facility] Work Phone: Potassium [Moles/Vol] 4.3 mmol/L 3.5-5.1 [facility] Work [facility]: [phone] Sodium [Moles/Vol] 135 mmol/L 136-145 [facility] Work Phone: WBC (Bld) [#/Vol] 9.0 10*3/uL 4.4-11.0 [facility] Work Phone: Blood erythrocytes count (nu mber/volume)on 06-25-2022 RBC (Bld) [#/Vol] 4.62 10*6/uL [facility].2[facility]5.4 [facility]: Blood hemoglobin measurement (mass/volume)on 06-25-2022 Hemoglobin (Bld) [Mass/Vol] 12.1 g/dL 12.0-15.0 [facility] Work Phone: Blood lymphocytes/100 leukoc yteson 06-25-2022 Lymphocytes/100 WBC (Bld) 36.4 % 19-41 [facility] Work Phone: Blood monocytes/100 leukocyt eson 06-25-2022 Monocytes/100 WBC (Bld) 7.0 % 0-10 [facility] Work Phone: Blood platelet mean volumeon 06-25-2022 Platelet mean volume (Bld) [Entitic vol] 9.5 fL 6.2-12.0 [facility] Work Phone: Determination of erythrocyte mean corpuscular volume (MCV)on 06-25-2022 MCV (RBC) [Entitic vol] 82.0 fL 81-99 [facility] Work Phone: Glucose Glucometer (BldC) [M ass/Vol]on 06-25-2022 Glucose [Mass/Vol] 263 mg/dL 74-106 [facility] Work Phone: [phone] Comment on above: MANAGEMENT OF PATIEN T CARE PER NURSING PROTOCOL Hematocrit Auto (Bld) [Volum e fraction]on 06-25-2022 Hematocrit (Bld) [Volume fraction] 37.9 % 37-47 [facility] Work Phone: [phone] Laboratory - Chemistry and C hemistry - challengeon 06-25-2022 CO2 [Moles/Vol] 24.0 mmol/L 21.0-32.0 [facility] Work Phone: [phone] Urea nitrogen/Creatinine [Mass ratio] 13.1 mg/mg 10-20 [facility] Work Phone: [phone] Laboratory - Hematology and Cell countson 06-25-2022 Erythrocyte distribution width (RBC) [Entitic vol] 41.4 fL 35.1-43.9 [facility] Work Phone: [phone] Erythrocyte distribution width (RBC) [Ratio] 14.1 % 11.6-14.6 [facility] Work Phone: [phone] Immature granulocytes/100 WBC (Bld) 1.600 % 0.0-0.9 [facility] Work Phone: [phone] Comment on above: IG% - Immature Granu locytes (promyelocytes, myelocytes and metamyelocytes) > 1% indicates that a LEFT SHIFT is Present. MCH (RBC) [Entitic mass] 26.2 pg 27.0-32.0 [facility] Work Phone: [phone] Nucleated RBC/100 WBC (Bld) [Ratio] 0 % 0-5 [facility] Work Phone: [phone] MCHC Auto (RBC) [Mass/Vol]on 06-25-2022 MCHC (RBC) [Mass/Vol] 31.9 g/dL 32-36 [facility] Work Phone: [phone] No Panel Informationon 06-25 Estimated Creatinine Clearance Calc 101.33 ml/min [facility] Work Phone: [phone] Estimated GFR (MDRD) Amer 114 mL/min >60 [facility] Work Phone: Comment on above: GFR Calc Estimated GFR (MDRD) Non-Af Amer 95 mL/min >60 [facility] Work Phone: Comment on above: Non- GFR Calc Platelets bldon 06-25-2022 Platelets (Bld) [#/Vol] 353 10*3/uL 150-450 [facility] Work Phone: Serum or plasma calcium hussein urement (mass/volume)on 06-25-2022 Calcium [Mass/Vol] 8.6 mg/dL 8.5-10.1 [facility] Work Phone: Serum or plasma creatinine m easurement (mass/volume)on 06-25-2022 Creatinine [Mass/Vol] 0.76 mg/dL 0.55-1.02 [facility] Work Phone: Comment on above: The validity of the calculated GFR & GFRAA in patients over 70 years has not been determined. Clinical correlation is essential. Serum or plasma urea nitroge n measurement (mass/volume)on 06-25-2022 Urea nitrogen [Mass/Vol] 10 mg/dL 7-18 [facility] Work Phone: Thin prep Papanicolaou smear with manual screeningon 06-25-2022 Thin prep Papanicolaou smear with manual screening 7 -15 [facility] Work Phone: Absolute lymphocyte counton 06-24-2022 Lymphocytes Auto (Unsp spec) [#/Vol] 3.15 10*3/uL 0.83-4.51 [facility] Work Phone: Basophil percentageOrdered B y: Dr. Hinson on 06-24-2022 Lactate [Moles/Vol] 3.0 mmol/L 0.4-2.0 [facility] Comment on above: Critical Result(s) C alled at: 18:06:09 06/24/2022 by: LUIS E VALENZUELA.TO SIVA JANG4 RN MS-3 Results read back by same. Basophil percentage 0 SEEN /hpf 0-5 [facility] Bilirubin [Mass/Vol] 0.30 mg/dL 0.20-1.00 [facility] Comment on above: For patients on eltr ombopag therapy, use of Dimension [place] TBIL is not recommended. Protein [Mass/Vol] 8.0 g/dL 6.4-8.2 [facility] Basophil percentageon 2021 Basophils/100 WBC (Bld) 0.5 % 0-1 [facility] Work Phone: Chloride [Moles/Vol] 104 mmol/L 98-107 [facility] Work Phone: [phone] Eosinophils/100 WBC (Bld) 0.7 % 0-5 [facility] Work Phone: Glucose [Mass/Vol] 318 mg/dL 74-106 [facility] Work Phone: Comment on above: Glucose result great er than or equal to 200 mg/dLsuggests DIABETES MELLITUS per A.D.A. criteria. Lactate [Moles/Vol] 4.8 mmol/L 0.4-2.0 [facility] Work Phone: Comment on above: Critical Result(s) C alled at: 13:11:31 06/24/2022 by: Gayathri Edmond. Results read back by same. Neutrophils (Bld) [#/Vol] 5.1 10*3/uL 2.0-7.7 [facility] Work Phone: Neutrophils/100 WBC (Bld) 56.2 % 47-70 [facility] Work Phone: Potassium [Moles/Vol] 3.9 mmol/L 3.5-5.1 [facility] Work Phone: Sodium [Moles/Vol] 138 mmol/L 136-145 [facility] Work Phone: [phone] WBC (Bld) [#/Vol] 9.1 10*3/uL 4.4-11.0 [facility] Work Phone: Bilirubin Test strip Ql (U)O rdered By: Dr. Hinson on 06-24-2022 Bilirubin Ql (U) Negative Negative [facility] Blood erythrocytes count (nu mber/volume)on 06-24-2022 RBC (Bld) [#/Vol] 4.73 10*6/uL 4.2-5.4 [facility] Work Phone: Blood hemoglobin measurement (mass/volume)on 06-24-2022 Hemoglobin (Bld) [Mass/Vol] 12.8 g/dL 12.0-15.0 [facility] Work Phone: Blood lymphocytes/100 leukoc yteson 06-24-2022 Lymphocytes/100 WBC (Bld) 34.6 % 19-41 [facility] Work Phone: Blood monocytes/100 leukocyt eson 06-24-2022 Monocytes/100 WBC (Bld) 6.8 % 0-10 [facility] Work Phone: Blood platelet mean volumeon 06-24-2022 Platelet mean volume (Bld) [Entitic vol] 9.3 fL 6.2-12.0 [facility] Work Phone: Determination of erythrocyte mean corpuscular volume (MCV)on 06-24-2022 MCV (RBC) [Entitic vol] 81.2 fL 81-99 [facility] Work Phone: Gram stain for investigation of transfusion reactionOrdered By: Dr. Matias on 06-24-2022 Microscopic observation Gram stain Nom (Unsp spec) [facility] Hematocrit Auto (Bld) [Volum e fraction]on 06-24-2022 Hematocrit (Bld) [Volume fraction] 38.4 % 37-47 [facility] Work Phone: Ketones Test strip Ql (U)Ord ered By: Dr. Hinson on 06-24-2022 Ketones Ql (U) 15 mg/dl Negative [facility] Laboratory - Chemistry and C hemistry - challengeOrdered By: Dr. Hinson on 06-24-2022 ALP [Catalytic activity/Vol] 76 U/L 45-117 [facility] ALT [Catalytic activity/Vol] 22 U/L 13-56 [facility] Globulin (S) [Mass/Vol] 5.2 g/dL 2.2-4.2 [facility] Laboratory - Chemistry and C hemistry - challengeon 06-24-2022 CO2 [Moles/Vol] 28.0 mmol/L 21.0-32.0 [facility] Work Phone: Urea nitrogen/Creatinine [Mass ratio] 13.8 mg/mg 10-20 [facility] Work Phone: Laboratory - Hematology and Cell countson 06-24-2022 Erythrocyte distribution width (RBC) [Entitic vol] 41.3 fL 35.1-43.9 [facility] Work Phone: Erythrocyte distribution width (RBC) [Ratio] 14.2 % 11.6-14.6 [facility] Work Phone: Immature granulocytes/100 WBC (Bld) 1.200 % 0.0-0.9 [facility] Work Phone: Comment on above: IG% - Immature Granu locytes (promyelocytes, myelocytes and metamyelocytes) > 1% indicates that a LEFT SHIFT is Present. MCH (RBC) [Entitic mass] 27.1 pg 27.0-32.0 [facility] Work Phone: Nucleated RBC/100 WBC (Bld) [Ratio] 0 % 0-5 [facility] Work Phone: MCHC Auto (RBC) [Mass/Vol]on 06-24-2022 MCHC (RBC) [Mass/Vol] 33.3 g/dL 32-36 [facility] Work Phone: Mucus LM Ql (Urine sed)Order ed By: Dr. Hinson on 06-24-2022 Mucus Ql (Urine sed) 0 SEEN /hpf [facility] Nitrite Test strip Ql (U)Ord ered By: Dr. Hinson on 06-24-2022 Nitrite Ql (U) Negative Negative [facility] No Panel Informationon 06-24 Estimated Creatinine Clearance Calc 96.26 ml/min [facility] Work Phone: Estimated GFR (MDRD) Amer 109 mL/min >60 [facility] Work Phone: Comment on above: GFR Calc Estimated GFR (MDRD) Non-Af Amer 90 mL/min >60 [facility] Work Phone: Comment on above: Non- GFR Calc Platelets bldon 06-24-2022 Platelets (Bld) [#/Vol] 345 10*3/uL 150-450 [facility] Work Phone: Protein Test strip Ql (U)Ord ered By: Dr. Hinson on 06-24-2022 Protein Ql (U) 15 mg/dl Negative [facility] Serum or plasma albumin hussein urement (mass/volume)Ordered By: Dr. Hinson on 06-24-2022 Albumin [Mass/Vol] 2.8 g/dL 3.2-5.0 [facility] Serum or plasma albumin/glob ulin mass ratioOrdered By: Dr. Hinson on 06-24-2022 Albumin/Globulin [Mass ratio] 0.5 {ratio} 0.9-2.4 [facility] Serum or plasma calcium hussein urement (mass/volume)on 06-24-2022 Calcium [Mass/Vol] 9.1 mg/dL 8.5-10.1 [facility] Work Phone: Serum or plasma creatinine m easurement (mass/volume)on 06-24-2022 Creatinine [Mass/Vol] 0.80 mg/dL 0.55-1.02 [facility] Work Phone: Comment on above: The validity of the calculated GFR & GFRAA in patients over 70 years has not been determined. Clinical correlation is essential. Serum or plasma urea nitroge n measurement (mass/volume)on 06-24-2022 Urea nitrogen [Mass/Vol] 11 mg/dL 7-18 [facility] Work Phone: Squamous epithelial cells de tection in urine sediment by light microscopyOrdered By: Dr. Hinson on 06-24-2022 Epithelial cells.squamous LM Ql (Urine sed) 5-10 SEEN /hpf 5-10 [facility] Thin prep Papanicolaou smear with manual screeningOrdered By: Dr. Hinson on 06-24-2022 Thin prep Papanicolaou smear with manual screening 10 U/L 15-37 [facility] Thin prep Papanicolaou smear with manual screeningon 06-24-2022 Thin prep Papanicolaou smear with manual screening 6 5-15 [facility] Work Phone: Urine blood detectionOrdered By: Dr. Hinson on 06-24-2022 RBC Ql (U) 25 /ul Negative [facility] RBC Ql (U) 10-25 SEEN /hpf 0-5 [facility] Urine clarityOrdered By: Dr. Hinson on 06-24-2022 Clarity (U) Sl. Cloudy Clear [facility] Urine color determinationOrd ered By: Dr. Hinson on 06-24-2022 Color (U) Yellow Yellow [facility] Urine glucose detectionOrder ed By: Dr. Hinson on 06-24-2022 Glucose Ql (U) 1000 mg/dl Normal [facility] Urine leukocyte esterase det ection by dipstickOrdered By: Dr. Hinson on 06-24-2022 Leukocyte esterase Test strip Ql (U) Negative Negative [facility] Urine pHOrdered By: Dr. Vonda aden on 06-24-2022 pH (U) 5.0 [pH] 5.0 - 8.0 [facility] Urine sediment bacteria coun t by microscopy (number/high power field)Ordered By: Dr. Hinson on 06-24-2022 Bacteria LM.HPF (Urine sed) [#/Area] RARE /hpf None Seen [facility] Urine specific gravity measu rementOrdered By: Dr. Hinson on 06-24-2022 Specific gravity (U) [Rel density] 1.025 1.002-1.030 [facility] Urobilinogen Auto test strip Ql (U)Ordered By: Dr. Hinson on 06-24-2022 Urobilinogen Ql (U) Normal mg/dl Normal [facility] Whole blood hemoglobin A1c/t otal hemoglobin ratio (mass fraction)Ordered By: Dr. Rao on 06-24-2022 HbA1c (Bld) [Mass fraction] 10.6 % 3.8-5.6 [facility] Comment on above: Normal < 5.7 % Predi abetic 5.7 - 6.4 % Diabetic >or= 6.5 % Please note range changes. No Panel InformationOrdered By: Dr. Matias on 06-23-2022 Methicillin-Resist S.aureus DNA PCR Positive Negative [facility] Staphylococcus aureus DNA de tection by probe and target amplification methodOrdered By: Dr. Matias on 06-23-2022 S. aureus DNA REBECCA+probe Ql (Unsp spec) Positive Negative [facility] Absolute lymphocyte countOrd ered By: Dr. Matias on 05-07-2022 Lymphocytes Auto (Unsp spec) [#/Vol] 0.99 10*3/uL 0.83-4.51 [facility] Comment on above: Previous reported re sult: 5.07 X10^3/uLEdited by: BHUPINDER on 05/07/22:1437 AMENDED REPORT 05/07/221436 Absolute Lymph previously reported as: 5.07 H X10^3/uL Basophil percentageOrdered B y: Dr. Matias on 05-07-2022 Basophil percentage [employer] [facility] Comment on above: Previous reported re [...] 0.6 % Bilirubin [Mass/Vol] 0.20 mg/dL 0.20-1.00 [facility] Comment on above: For patients on eltr ombopag therapy, use of Dimension [place] TBIL is not recommended. Chloride [Moles/Vol] 101 mmol/L 98-107 [facility] Glucose [Mass/Vol] 207 mg/dL 74-106 [facility] Comment on above: Glucose result great er than or equal to 200 mg/dLsuggests DIABETES MELLITUS per A.D.A. criteria. Neutrophils (Bld) [#/Vol] 8.8 10*3/uL 2.0-7.7 [facility] Comment on above: Previous reported re sult: 4.8 X10^3/uLEdited by: BHUPINDER on 05/07/22:1436 AMENDED REPORT 05/07/22 143 Absolute Neut previously reported as: 4.8 X10^3/uL Potassium [Moles/Vol] 4.0 mmol/L 3.5-5.1 [facility] Protein [Mass/Vol] 8.4 g/dL 6.4-8.2 [facility] Sodium [Moles/Vol] 134 mmol/L 136-145 [facility] WBC (Bld) [#/Vol] 11.1 10*3/uL 4.4-11.0 [facility] Blood band neutrophil count as percentage of total leukocytesOrdered By: Dr. Matias on 05-07-2022 Band form neutrophils/100 WBC (Bld) 6 % 0-5 [facility] Blood erythrocytes count (nu mber/volume)Ordered By: Dr. Matias on 05-07-2022 RBC (Bld) [#/Vol] 4.81 10*6/uL 4.2-5.4 [facility] Blood hemoglobin measurement (mass/volume)Ordered By: Dr. Matias on 05-07-2022 Hemoglobin (Bld) [Mass/Vol] 13.0 g/dL 12.0-15.0 [facility] Blood lymphocytes/100 leukoc ytesOrdered By: Dr. Matias on 05-07-2022 Lymphocytes/100 WBC (Bld) [employer] [facility] Comment on above: Previous reported re sult: 45.7 %Edited by: BHUPINDER on 05/07/22:1430 AMENDED REPORT 05/07/221429 LY% previously reported as: 45.7 H % Lymphocytes/100 WBC (Bld) 9 % 19-41 [facility] Blood monocytes/100 leukocyt esOrdered By: Dr. Matias on 05-07-2022 Monocytes/100 WBC (Bld) [employer] [facility] Comment on above: Previous reported re sult: 5.2 %Edited by: BHUPINDER on 05/07/22:1430 AMENDED REPORT 05/07/22 1430 MONO% previously reported as: 5.2 % Monocytes/100 WBC (Bld) 12 % 0-10 [facility] Blood platelet mean volumeOr dered By: Dr. Matias on 05-07-2022 Platelet mean volume (Bld) [Entitic vol] 9.0 fL 6.2-12.0 [facility] Blood platelet morphology de termination (nominal result)Ordered By: Dr. Matias on 05-07-2022 Platelet morphology finding Nom (Bld) LARGE [facility] Blood segmented neutrophils/ [address]: [address] Matias on 05-07-2022 Segmented neutrophils/100 WBC (Bld) 73 % 47-70 [facility] Determination of erythrocyte mean corpuscular volume (MCV)Ordered By: Dr. Matias on 05-07-2022 MCV (RBC) [Entitic vol] 81.3 fL 81-99 [facility] Hematocrit Auto (Bld) [Volum e fraction]Ordered By: Dr. Matias on 05-07-2022 Hematocrit (Bld) [Volume fraction] 39.1 % 37-47 [facility] Laboratory - Chemistry and C hemistry - challengeOrdered By: Dr. Matias on 05-07-2022 ALP [Catalytic activity/Vol] 76 U/L 45-117 [facility] ALT [Catalytic activity/Vol] 23 U/L 13-56 [facility] CO2 [Moles/Vol] 25.0 mmol/L 21.0-32.0 [facility] Globulin (S) [Mass/Vol] 5.0 g/dL 2.2-4.2 [facility] Urea nitrogen/Creatinine [Mass ratio] 17.4 mg/mg 10-20 [facility] Laboratory - Hematology and Cell countsOrdered By: Dr. Matias on 05-07-2022 Erythrocyte distribution width (RBC) [Entitic vol] 41.1 fL 35.1-43.9 [facility] Erythrocyte distribution width (RBC) [Ratio] 14.0 % 11.6-14.6 [facility] MCH (RBC) [Entitic mass] 27.0 pg 27.0-32.0 [facility] Nucleated RBC/100 WBC (Bld) [Ratio] 0 % 0-5 [facility] MCHC Auto (RBC) [Mass/Vol]Or dered By: Dr. Matias on 05-07-2022 MCHC (RBC) [Mass/Vol] 33.2 g/dL 32-36 [facility] No Panel InformationOrdered By: Dr. Matias on 05-07-2022 Atypical Lymphocytes RARE % [facility] Estimated GFR (MDRD) Amer 99 mL/min >60 [facility] Comment on above: GFR Calc Estimated GFR (MDRD) Non-Af Amer 82 mL/min >60 [facility] Comment on above: Non- GFR Calc Immature Granulocyte % (Auto) [employer] [facility] Comment on above: Previous reported re sult: 1.500 %Edited by: BHUPINDER on 05/07/22:1431 AMENDED REPORT 05/07/22 1431 IM GRAN % previously reported as: 1.500 H % IG% - Immature Granulocytes (promyelocytes, myelocytes and metamyelocytes) > 1% indicates that a LEFT SHIFT is Present. Platelets bldOrdered By: Dr. Matias on 05-07-2022 Platelets (Bld) [#/Vol] 369 10*3/uL 150-450 [facility] RBC morphologyOrdered By: Dr Marine Matias on 05-07-2022 RBC morphology finding Nom (Bld) NORM C+C NORMAL NORM C&C [facility] Review by pathologiston 04-12 Pathologist review Franky (Unsp spec) [Interp] Zahraa waite [facility] Work Phone: Review by pathologistOrdered By: Dr. Matias on 05-07-2022 Pathologist review Franky (Unsp spec) [Interp] Reviewed [facility] Comment on above: Previous reported re sult: Zahraa waite Edited by: EZ on 05/08/22:1553Neutrophilic leukocytosis.Clinical correlation suggested.Franki Glez D.O. 05/08/22 AMENDED REPORT 05/08/22 1553 PATH REV previously reported as: November foll Serum or plasma albumin hussein urement (mass/volume)Ordered By: Dr. Matias on 05-07-2022 Albumin [Mass/Vol] 3.4 g/dL 3.2-5.0 [facility] Serum or plasma albumin/glob ulin mass ratioOrdered By: Dr. Matias on 05-07-2022 Albumin/Globulin [Mass ratio] 0.7 {ratio} 0.9-2.4 [facility] Serum or plasma calcium hussein urement (mass/volume)Ordered By: Dr. Matias on 05-07-2022 Calcium [Mass/Vol] 8.7 mg/dL 8.5-10.1 [facility] Serum or plasma creatinine m easurement (mass/volume)Ordered By: Dr. Matias on 05-07-2022 Creatinine [Mass/Vol] 0.86 mg/dL 0.55-1.02 [facility] Comment on above: The validity of the calculated GFR & GFRAA in patients over 70 years has not been determined. Clinical correlation is essential. Serum or plasma urea nitroge n measurement (mass/volume)Ordered By: Dr. Matias on 05-07-2022 Urea nitrogen [Mass/Vol] 15 mg/dL 7-18 [facility] Thin prep Papanicolaou smear with manual screeningOrdered By: Dr. Matias on 05-07-2022 Thin prep Papanicolaou smear with manual screening 10 U/L 15-37 [facility] Thin prep Papanicolaou smear with manual screening 8 5-15 [facility] Basophil percentageOrdered B y: [facility] on 04-20-2022 Chloride [Moles/Vol] 104 mmol/L 98-107 [facility] Glucose [Mass/Vol] 224 mg/dL 74-106 [facility] Comment on above: Glucose result great er than or equal to 200 mg/dLsuggests DIABETES MELLITUS per A.D.A. criteria. Potassium [Moles/Vol] 3.7 mmol/L 3.5-5.1 [facility] Sodium [Moles/Vol] 139 mmol/L 136-145 [facility] WBC (Bld) [#/Vol] 9.3 10*3/uL 4.4-11.0 [facility] Blood erythrocytes count (nu mber/volume)Ordered By: [facility] on 04-20-2022 RBC (Bld) [#/Vol] 3.93 10*6/uL 4.2-5.4 [facility] Blood hemoglobin measurement (mass/volume)Ordered By: [facility] on 04-20-2022 Hemoglobin (Bld) [Mass/Vol] 10.4 g/dL 12.0-15.0 [facility] Blood platelet mean volumeOr dered By: [facility] on 04-20-2022 Platelet mean volume (Bld) [Entitic vol] 9.6 fL 6.2-12.0 [facility] Determination of erythrocyte mean corpuscular volume (MCV)Ordered By: [facility] on 04-20-2022 MCV (RBC) [Entitic vol] 83.7 fL 81-99 [facility] Erythrocyte sedimentation ra teOrdered By: [facility] on 04-20-2022 ESR (Bld) [Velocity] 60 mm/h 0-30 [facility] Hematocrit Auto (Bld) [Volum e fraction]Ordered By: [facility] on 04-20-2022 Hematocrit (Bld) [Volume fraction] 32.9 % 37-47 [facility] Laboratory - Chemistry and C hemistry - challengeOrdered By: [facility] on 04-20-2022 CO2 [Moles/Vol] 28.0 mmol/L 21.0-32.0 [facility] Urea nitrogen/Creatinine [Mass ratio] 16.3 mg/mg 10-20 [facility] Laboratory - Hematology and Cell countsOrdered By: [facility] on 04-20-2022 Erythrocyte distribution width (RBC) [Entitic vol] 41.4 fL 35.1-43.9 [facility] Erythrocyte distribution width (RBC) [Ratio] 13.5 % 11.6-14.6 [facility] MCH (RBC) [Entitic mass] 26.5 pg 27.0-32.0 [facility] MCHC Auto (RBC) [Mass/Vol]Or dered By: [facility] on 04-20-2022 MCHC (RBC) [Mass/Vol] 31.6 g/dL 32-36 [facility] No Panel InformationOrdered By: [facility] on 04-20-2022 Estimated GFR (MDRD) Amer 147 mL/min >60 [facility] Comment on above: GFR Calc Estimated GFR (MDRD) Non-Af Amer 122 mL/min >60 [facility] Comment on above: Non- GFR Calc Platelets bldOrdered By: [facility] on 04-20-2022 Platelets (Bld) [#/Vol] 509 10*3/uL 150-450 [facility] Serum or plasma calcium hussein urement (mass/volume)Ordered By: [facility] on 04-20-2022 Calcium [Mass/Vol] 8.5 mg/dL 8.5-10.1 [facility] Serum or plasma creatinine m easurement (mass/volume)Ordered By: [facility] on 04-20-2022 Creatinine [Mass/Vol] 0.61 mg/dL 0.55-1.02 [facility] Comment on above: The validity of the calculated GFR & GFRAA in patients over 70 years has not been determined. Clinical correlation is essential. Serum or plasma urea nitroge n measurement (mass/volume)Ordered By: [facility] on 04-20-2022 Urea nitrogen [Mass/Vol] 10 mg/dL 7-18 [facility] Thin prep Papanicolaou smear with manual screeningOrdered By: [facility] on 04-20-2022 Thin prep Papanicolaou smear with manual screening 7 5-15 [facility] Vancomycin troughOrdered By: [facility] on 04-20-2022 Vancomycin trough [Mass/Vol] 7.2 ug/mL 5.0-15.0 [facility] Comment on above: VANCOMYCIN STANDARED DRUG THERAPY TROUGH LEVEL: 5.0 - 15.0 mg/L VANCOMYCIN HIGH INTENSITY THERAPY TROUGH LEVEL: 15.0 - 20.0 mg/L High Intensity therapy recommended for serious lifethreatening infections include:- Eucipbmrlc-Eywkiglzxewq-Fwhezmbvg (Ventilator/Healtcare Associated)-Sepsis PLEASE CONTACT PHARMACY SERVICES (#1974) FOR INTERPRETATIONOF RESULTS. Basophil percentageon 2021 Chloride [Moles/Vol] 103 mmol/L 98-107 [facility] Work Phone: [phone] Glucose [Mass/Vol] 188 mg/dL 74-106 [facility] Work Phone: [phone] Comment on above: Fasting Glucose resu lt greater than or equal to 126 mg/dL suggests DIABETES MELLITUS per A.D.A. criteria. Potassium [Moles/Vol] 4.3 mmol/L 3.5-5.1 [facility] Work Phone: [phone] Sodium [Moles/Vol] 137 mmol/L 136-145 [facility] Work Phone: [phone] WBC (Bld) [#/Vol] 10.0 10*3/uL 4.4-11.0 [facility] Work Phone: [phone] Blood erythrocytes count (nu mber/volume)on 04-13-2022 RBC (Bld) [#/Vol] 4.32 10*6/uL 4.2-5.4 [facility] Work Phone: [phone] Blood hemoglobin measurement (mass/volume)on 04-13-2022 Hemoglobin (Bld) [Mass/Vol] 11.5 g/dL 12.0-15.0 [facility] Work Phone: [phone] Blood platelet mean volumeon 04-13-2022 Platelet mean volume (Bld) [Entitic vol] 9.2 fL 6.2-12.0 [facility] Work Phone: [phone] Determination of erythrocyte mean corpuscular volume (MCV)on 04-13-2022 MCV (RBC) [Entitic vol] 84.7 fL 81-99 [facility] Work Phone: [phone] Erythrocyte sedimentation ra abeba 04-13-2022 ESR (Bld) [Velocity] 90 mm/h 0-30 [facility] Work Phone: [phone] Hematocrit Auto (Bld) [Volum e fraction]on 04-13-2022 Hematocrit (Bld) [Volume fraction] 36.6 % 37-47 [facility] Work Phone: [phone] Laboratory - Chemistry and C hemistry - challengeon 04-13-2022 CO2 [Moles/Vol] 25.0 mmol/L 21.0-32.0 [facility] Work Phone: [phone] Urea nitrogen/Creatinine [Mass ratio] 18.8 mg/mg 10-20 [facility] Work Phone: [phone] Laboratory - Hematology and Cell countson 04-13-2022 Erythrocyte distribution width (RBC) [Entitic vol] 41.8 fL 35.1-43.9 [facility] Work Phone: [phone] Erythrocyte distribution width (RBC) [Ratio] 13.4 % 11.6-14.6 [facility] Work Phone: [phone] MCH (RBC) [Entitic mass] 26.6 pg 27.0-32.0 [facility] Work Phone: [phone] MCHC Auto (RBC) [Mass/Vol]on 04-13-2022 MCHC (RBC) [Mass/Vol] 31.4 g/dL 32-36 [facility] Work Phone: No Panel Informationon 04-13 Estimated GFR (MDRD) Amer 128 mL/min >60 [facility] Work Phone: Comment on above: GFR Calc Estimated GFR (MDRD) Non-Af Amer 106 mL/min >60 [facility] Work Phone: Comment on above: Non- GFR Calc Platelets bldon 04-13-2022 Platelets (Bld) [#/Vol] 609 10*3/uL 150-450 [facility] Work Phone: [phone] Serum or plasma calcium hussein urement (mass/volume)on 04-13-2022 Calcium [Mass/Vol] 9.4 mg/dL 8.5-10.1 [facility] Work Phone: [phone] Serum or plasma creatinine m easurement (mass/volume)on 04-13-2022 Creatinine [Mass/Vol] 0.69 mg/dL 0.55-1.02 [facility] Work Phone: [phone] Comment on above: The validity of the calculated GFR & GFRAA in patients over 70 years has not been determined. Clinical correlation is essential. Serum or plasma urea nitroge n measurement (mass/volume)on 04-13-2022 Urea nitrogen [Mass/Vol] 13 mg/dL 7-18 [facility] Work Phone: [phone] Thin prep Papanicolaou smear with manual screeningon 04-13-2022 Thin prep Papanicolaou smear with manual screening 9 5-15 [facility] Work Phone: [phone] Vancomycin troughon 04-13-20 Vancomycin trough [Mass/Vol] 19.3 ug/mL 5.0-15.0 [facility] Work Phone: Comment on above: VANCOMYCIN STANDARED DRUG THERAPY TROUGH LEVEL: 5.0 - 15.0 mg/L VANCOMYCIN HIGH INTENSITY THERAPY TROUGH LEVEL: 15.0 - 20.0 mg/L High Intensity therapy recommended for serious lifethreatening infections include:- Ssxpluypyi-Zehcbfnpgoaq-Vkhhsgxfk (Ventilator/Healtcare Associated)-Sepsis PLEASE CONTACT PHARMACY SERVICES (#[id number]) FOR INTERPRETATIONOF RESULTS. Basophil percentageon 2021 Chloride [Moles/Vol] 100 mmol/L 98-107 [facility] Work Phone: Cholesterol [Mass/Vol] 143 mg/dL <[address] [facility] Work Phone: Comment on above: <200 mg/dL Desirable 200-240 mg/dL Borderline >240 mg/dL High Risk Glucose [Mass/Vol] 217 mg/dL 74-106 [facility] Work Phone: Comment on above: Glucose result great er than or equal to 200 mg/dLsuggests DIABETES MELLITUS per A.D.A. criteria. Potassium [Moles/Vol] 3.7 mmol/L 3.5-5.1 [facility] Work Phone: [phone] Sodium [Moles/Vol] 137 mmol/L 136-145 [facility] Work Phone: [phone] Triglyceride [Mass/Vol] 170 mg/dL <199 [facility] Work Phone: [phone] Comment on above: The drugs N-Acetylcy steine and Metamizole may falsely depress this assay.Serum Triglycerides Reference Interval Normal <150 mg/dL Borderline high 150 - 199 mg/dL High 200 - 499 mg/dL Very High > or = 500 mg/dL WBC (Bld) [#/Vol] 9.1 10*3/uL 4.4-11.0 [facility] Work Phone: [phone] Blood erythrocytes count (nu mber/volume)on 04-10-2022 RBC (Bld) [#/Vol] 3.85 10*6/uL 4.2-5.4 [facility] Work Phone: [phone] Blood hemoglobin measurement (mass/volume)on 04-10-2022 Hemoglobin (Bld) [Mass/Vol] 10.2 g/dL 12.0-15.0 [facility] Work Phone: [phone] Blood platelet mean volumeon 04-10-2022 Platelet mean volume (Bld) [Entitic vol] 9.1 fL 6.2-12.0 [facility] Work Phone: [phone] Determination of erythrocyte mean corpuscular volume (MCV)on 04-10-2022 MCV (RBC) [Entitic vol] 82.6 fL 81-99 [facility] Work Phone: [phone] Erythrocyte sedimentation ra abeba 04-10-2022 ESR (Bld) [Velocity] 58 mm/h 0-30 [facility] Work Phone: [phone] Hematocrit Auto (Bld) [Volum e fraction]on 04-10-2022 Hematocrit (Bld) [Volume fraction] 31.8 % 37-47 [facility] Work Phone: [phone] Laboratory - Chemistry and C hemistry - challengeon 04-10-2022 CO2 [Moles/Vol] 32.0 mmol/L 21.0-32.0 [facility] Work Phone: [phone] Cobalamin (Vitamin B12) [Mass/Vol] 216 pg/mL 211-911 [facility] Work Phone: [phone] Urea nitrogen/Creatinine [Mass ratio] 22.7 mg/mg 10-20 [facility] Work Phone: [phone] Laboratory - Hematology and Cell countson 04-10-2022 Erythrocyte distribution width (RBC) [Entitic vol] 39.7 fL 35.1-43.9 [facility] Work Phone: [phone] Erythrocyte distribution width (RBC) [Ratio] 13.2 % 11.6-14.6 [facility] Work Phone: [phone] MCH (RBC) [Entitic mass] 26.5 pg 27.0-32.0 [facility] Work Phone: [phone] MCHC Auto (RBC) [Mass/Vol]on 04-10-2022 MCHC (RBC) [Mass/Vol] 32.1 g/dL 32-36 [facility] Work Phone: [phone] No Panel Informationon 04-10 Estimated GFR (MDRD) Amer 146 mL/min >60 [facility] Work Phone: [phone] Comment on above: GFR Calc Estimated GFR (MDRD) Non-Af Amer 120 mL/min >60 [facility] Work Phone: [phone] Comment on above: Non- GFR Calc Vitamin D 25-Hydroxy 18.5 ng/mL [facility] Work Phone: Comment on above: Vitamin D 25(OH) Sta tus Range Deficiency <20 ng/mL (50nmol/L) Insufficiency 20 - 30 ng/mL (50 - 75 nmol/L) Sufficiency 30 - 100 ng/mL (75 - 250 nmol/L) Toxicity >100 ng/mL (>250 nmol/L) Platelets bldon 04-10-2022 Platelets (Bld) [#/Vol] 540 10*3/uL 150-450 [facility] Work Phone: [phone] Serum or plasma calcium hussein urement (mass/volume)on 04-10-2022 Calcium [Mass/Vol] 8.9 mg/dL 8.5-10.1 [facility] Work Phone: [phone] Serum or plasma cholesterol in HDL measurement (mass/volume)on 04-10-2022 Cholesterol in HDL [Mass/Vol] 23 mg/dL >40 [facility] Work Phone: Comment on above: The drugs N-Acetylcy steine and Metamizole may falsely depress this assay. Reference Range HDL <40 mg/dL Low HDL Cholesterol HDL >or= 60 mg/dL High HDL Cholesterol Serum or plasma cholesterol in VLDL measurement (mass/volume)on 04-10-2022 Cholesterol in VLDL [Mass/Vol] 34 mg/dL 5-40 [facility] Work Phone: Serum or plasma creatinine m easurement (mass/volume)on 04-10-2022 Creatinine [Mass/Vol] 0.62 mg/dL 0.55-1.02 [facility] Work Phone: Comment on above: The validity of the calculated GFR & GFRAA in patients over 70 years has not been determined. Clinical correlation is essential. Serum or plasma low density lipoprotein (LDL) cholesterol measurement (mass/volume)on 04-10-2022 Cholesterol in LDL [Mass/Vol] 86 mg/dL 0-130 [facility] Work Phone: Serum or plasma transthyreti n measurement (mass/volume)on 04-10-2022 Prealbumin [Mass/Vol] 11.5 mg/dL 20.0-40.0 [facility] Work Phone: Serum or plasma urea nitroge n measurement (mass/volume)on 04-10-2022 Urea nitrogen [Mass/Vol] 14 mg/dL 7-18 [facility] Work Phone: Thin prep Papanicolaou smear with manual screeningon 04-10-2022 Thin prep Papanicolaou smear with manual screening 5 5-15 [facility] Work Phone: [phone] Absolute lymphocyte counton 04-09-2022 Lymphocytes Auto (Unsp spec) [#/Vol] 2.68 10*3/uL 0.83-4.51 [facility] Work Phone: [phone] Basophil percentageon 2021 Basophils/100 WBC (Bld) 0.8 % 0-1 [facility] Work Phone: Chloride [Moles/Vol] 102 mmol/L 98-107 [facility] Work Phone: Eosinophils/100 WBC (Bld) 3.2 % 0-5 [facility] Work Phone: Glucose [Mass/Vol] 190 mg/dL 74-106 [facility] Work Phone: Comment on above: Fasting Glucose resu lt greater than or equal to 126 mg/dL suggests DIABETES MELLITUS per A.D.A. criteria. Neutrophils (Bld) [#/Vol] 3.7 10*3/uL 2.0-7.7 [facility] Work Phone: Neutrophils/100 WBC (Bld) 49.3 % 47-70 [facility] Work Phone: Potassium [Moles/Vol] 3.6 mmol/L 3.5-5.1 [facility] Work Phone: Sodium [Moles/Vol] 138 mmol/L 136-145 [facility] Work Phone: WBC (Bld) [#/Vol] 7.5 10*3/uL 4.4-11.0 [facility] Work Phone: Blood erythrocytes count (nu mber/volume)on 04-09-2022 RBC (Bld) [#/Vol] 3.73 10*6/uL 4.2-5.4 [facility] Work Phone: Blood hemoglobin measurement (mass/volume)on 04-09-2022 Hemoglobin (Bld) [Mass/Vol] 9.8 g/dL 12.0-15.0 [facility] Work Phone: Blood lymphocytes/100 leukoc yteson 04-09-2022 Lymphocytes/100 WBC (Bld) 35.8 % 19-41 [facility] Work Phone: Blood monocytes/100 leukocyt eson 04-09-2022 Monocytes/100 WBC (Bld) 9.2 % 0-10 [facility] Work Phone: Blood platelet mean volumeon 04-09-2022 Platelet mean volume (Bld) [Entitic vol] 8.8 fL 6.2-12.0 [facility] Work Phone: [phone] Determination of erythrocyte mean corpuscular volume (MCV)on 04-09-2022 MCV (RBC) [Entitic vol] 81.8 fL 81-99 [facility] Work Phone: [phone] Glucose Glucometer (BldC) [M ass/Vol]on 04-09-2022 Glucose [Mass/Vol] 251 mg/dL 74-106 [facility] Work Phone: [phone] Comment on above: MANAGEMENT OF PATIEN T CARE PER NURSING PROTOCOL Glucose [Mass/Vol] 281 mg/dL 74-106 [facility] Work Phone: [phone] Comment on above: MANAGEMENT OF PATIEN T CARE PER NURSING PROTOCOL Hematocrit Auto (Bld) [Volum e fraction]on 04-09-2022 Hematocrit (Bld) [Volume fraction] 30.5 % 37-47 [facility] Work Phone: [phone] Laboratory - Chemistry and C hemistry - challengeon 04-09-2022 CO2 [Moles/Vol] 28.0 mmol/L 21.0-32.0 [facility] Work Phone: [phone] Urea nitrogen/Creatinine [Mass ratio] 17.2 mg/mg 10-20 [facility] Work Phone: [phone] Laboratory - Hematology and Cell countson 04-09-2022 Erythrocyte distribution width (RBC) [Entitic vol] 38.9 fL 35.1-43.9 [facility] Work Phone: [phone] Erythrocyte distribution width (RBC) [Ratio] 13.0 % 11.6-14.6 [facility] Work Phone: [phone] Immature granulocytes/100 WBC (Bld) 1.700 % 0.0-0.9 [facility] Work Phone: [phone] Comment on above: IG% - Immature Granu locytes (promyelocytes, myelocytes and metamyelocytes) > 1% indicates that a LEFT SHIFT is Present. MCH (RBC) [Entitic mass] 26.3 pg 27.0-32.0 [facility] Work Phone: Nucleated RBC/100 WBC (Bld) [Ratio] 0 % 0-5 [facility] Work Phone: MCHC Auto (RBC) [Mass/Vol]on 04-09-2022 MCHC (RBC) [Mass/Vol] 32.1 g/dL 32-36 [facility] Work Phone: No Panel Informationon 04-09 Estimated Creatinine Clearance Calc 120.32 ml/min [facility] Work Phone: [phone] Estimated GFR (MDRD) Amer 140 mL/min >60 [facility] Work Phone: [phone] Comment on above: GFR Calc Estimated GFR (MDRD) Non-Af Amer 116 mL/min >60 [facility] Work Phone: Comment on above: Non- GFR Calc Platelets bldon 04-09-2022 Platelets (Bld) [#/Vol] 478 10*3/uL 150-450 [facility] Work Phone: Serum or plasma calcium hussein urement (mass/volume)on 04-09-2022 Calcium [Mass/Vol] 8.7 mg/dL 8.5-10.1 [facility] Work Phone: Serum or plasma creatinine m easurement (mass/volume)on 04-09-2022 Creatinine [Mass/Vol] 0.64 mg/dL 0.55-1.02 [facility] Work Phone: Comment on above: The validity of the calculated GFR & GFRAA in patients over 70 years has not been determined. Clinical correlation is essential. Serum or plasma urea nitroge n measurement (mass/volume)on 04-09-2022 Urea nitrogen [Mass/Vol] 11 mg/dL 7-18 [facility] Work Phone: [phone] Thin prep Papanicolaou smear with manual screeningon 04-09-2022 Thin prep Papanicolaou smear with manual screening 8 5-15 [facility] Work Phone: [phone] Blood manual differential co mment interpretation (narrative result)on 04-08-2022 Manual differential comment Franky (Bld) [Interp] SCANNED [facility] Work Phone: Blood platelet adequacy dete ction by light microscopyon 04-08-2022 Platelets LM Ql (Bld) ADEQUATE ADEQ [facility] Work Phone: Vancomycin troughon 04-08-20 Vancomycin trough [Mass/Vol] 10.2 ug/mL 5.0-15.0 [facility] Work Phone: Comment on above: VANCOMYCIN STANDARED DRUG THERAPY TROUGH LEVEL: 5.0 - 15.0 mg/L VANCOMYCIN HIGH INTENSITY THERAPY TROUGH LEVEL: 15.0 - 20.0 mg/L High Intensity therapy recommended for serious lifethreatening infections include:- Qsmnqvghhb-Scmhorxqfelo-Uzjqzfepg (Ventilator/Healtcare Associated)-Sepsis PLEASE CONTACT PHARMACY SERVICES (#[id number]) FOR INTERPRETATIONOF RESULTS. Basophil percentageon 2021 Bilirubin [Mass/Vol] 0.70 mg/dL 0.20-1.00 [facility] Work Phone: Comment on above: For patients on eltr ombopag therapy, use of Dimension [place] TBIL is not recommended. Protein [Mass/Vol] 7.7 g/dL 6.4-8.2 [facility] Work Phone: [phone] Laboratory - Chemistry and C hemistry - challengeon 04-07-2022 ALP [Catalytic activity/Vol] 121 U/L 45-117 [facility] Work Phone: [phone] ALT [Catalytic activity/Vol] 9 U/L 13-56 [facility] Work Phone: [phone] Globulin (S) [Mass/Vol] 5.4 g/dL 2.2-4.2 [facility] Work Phone: [phone] Serum or plasma albumin hussein urement (mass/volume)on 04-07-2022 Albumin [Mass/Vol] 2.3 g/dL 3.2-5.0 [facility] Work Phone: [phone] Serum or plasma albumin/glob ulin mass ratioon 04-07-2022 Albumin/Globulin [Mass ratio] 0.4 {ratio} 0.9-2.4 [facility] Work Phone: Thin prep Papanicolaou smear with manual screeningon 04-07-2022 Thin prep Papanicolaou smear with manual screening 6 U/L 15-37 [facility] Work Phone: Absolute lymphocyte counton 04-06-2022 Lymphocytes Auto (Unsp spec) [#/Vol] 2.55 10*3/uL 0.83-4.51 [facility] Work Phone: Basophil percentageon 2021 Basophils/100 WBC (Bld) 0.2 % 0-1 [facility] Work Phone: Chloride [Moles/Vol] 94 mmol/L 98-107 [facility] Work Phone: Eosinophils/100 WBC (Bld) 0.0 % 0-5 [facility] Work Phone: Glucose [Mass/Vol] 396 mg/dL 74-106 [facility] Work Phone: Comment on above: Glucose result great er than or equal to 200 mg/dLsuggests DIABETES MELLITUS per A.D.A. criteria. Neutrophils (Bld) [#/Vol] 18.0 10*3/uL 2.0-7.7 [facility] Work Phone: Neutrophils/100 WBC (Bld) 80.1 % 47-70 [facility] Work Phone: Potassium [Moles/Vol] 3.8 mmol/L 3.5-5.1 [facility] Work Phone: Sodium [Moles/Vol] 130 mmol/L 136-145 [facility] Work Phone: WBC (Bld) [#/Vol] 22.4 10*3/uL 4.4-11.0 [facility] Work Phone: Beta hCG serum qualon 2021 Beta HCG ( test) Ql Negative [facility] Work Phone: Blood erythrocytes count (nu mber/volume)on 04-06-2022 RBC (Bld) [#/Vol] 4.48 10*6/uL 4.2-5.4 [facility] Work Phone: Blood hemoglobin measurement (mass/volume)on 04-06-2022 Hemoglobin (Bld) [Mass/Vol] 12.0 g/dL 12.0-15.0 [facility] Work Phone: Blood lymphocytes/100 leukoc yteson 04-06-2022 Lymphocytes/100 WBC (Bld) 11.4 % 19-41 [facility] Work Phone: Blood monocytes/100 leukocyt eson 04-06-2022 Monocytes/100 WBC (Bld) 7.1 % 0-10 [facility] Work Phone: Blood platelet mean volumeon 04-06-2022 Platelet mean volume (Bld) [Entitic vol] 9.5 fL 6.2-12.0 [facility] Work Phone: Determination of erythrocyte mean corpuscular volume (MCV)on 04-06-2022 MCV (RBC) [Entitic vol] 82.1 fL 81-99 [facility] Work Phone: Erythrocyte sedimentation ra abeba 04-06-2022 ESR (Bld) [Velocity] 118 mm[facility]h 0-[facility]: Hematocrit Auto (Bld) [Volum e fraction]on 04-06-2022 Hematocrit (Bld) [Volume fraction] 36.8 % 37-47 [facility] Work Phone: Laboratory - Chemistry and C hemistry - challengeon 04-06-2022 CO2 [Moles/Vol] 25.0 mmol/L 21.0-32.0 [facility] Work Phone: Urea nitrogen/Creatinine [Mass ratio] 5.9 mg/mg 10-20 [facility] Work Phone: Laboratory - Hematology and Cell countson 04-06-2022 Erythrocyte distribution width (RBC) [Entitic vol] 39.4 fL 35.1-43.9 [facility] Work Phone: Erythrocyte distribution width (RBC) [Ratio] 13.2 % 11.6-14.6 [facility] Work Phone: [phone] Immature granulocytes/100 WBC (Bld) 1.200 % 0.0-0.9 [facility] Work Phone: Comment on above: IG% - Immature Granu locytes (promyelocytes, myelocytes and metamyelocytes) > 1% indicates that a LEFT SHIFT is Present. MCH (RBC) [Entitic mass] 26.8 pg 27.0-32.0 [facility] Work Phone: Nucleated RBC/100 WBC (Bld) [Ratio] 0 % 0-5 [facility] Work Phone: MCHC Auto (RBC) [Mass/Vol]on 04-06-2022 MCHC (RBC) [Mass/Vol] 32.6 g/dL 32-36 [facility] Work Phone: No Panel Informationon 04-06 Estimated Creatinine Clearance Calc 76.25 ml/min [facility] Work Phone: Estimated GFR (MDRD) Amer 83 mL/min >60 [facility] Work Phone: Comment on above: GFR Calc Estimated GFR (MDRD) Non-Af Amer 68 mL/min >60 [facility] Work Phone: Comment on above: Non- GFR Calc Platelets bldon 04-06-2022 Platelets (Bld) [#/Vol] 495 10*3/uL 150-450 [facility] Work Phone: Review by pathologiston 03-13 Pathologist review Franky (Unsp spec) [Interp] November ravindra [facility] Work Phone: Pathologist review Franky (Unsp spec) [Interp] Reviewed [facility] Work Phone: Comment on above: Previous reported re sult: November ravindra Edited by: CALEOD on 04/07/22:1303Neutrophilic leukocytosis with left shift. Thrombocytosis.Clinical correlation necessary.Patrick Castellon M.D. 04/07/22 AMENDED REPORT 04/07/22 1303 PATH REV previously reported as: November Serum or plasma C reactive p rotein measurement (mass/volume)on 04-06-2022 CRP [Mass/Vol] 321.00 mg/L 0.0-3.0 [facility] Work Phone: Comment on above: C-Reactive Protein ( CRP) provides useful information for thediagnosis, therapy and monitoring of inflammatory processesand associated diseases. For the evaluation of Relative Riskfor Cardiovascular Disease, a High Sensitivity CRP (HSCRP)should be ordered. Serum or plasma acetone hussein urement (mass/volume)on 04-06-2022 Acetone [Mass/Vol] Negative NEG [facility] Work Phone: Serum or plasma calcium hussein urement (mass/volume)on 04-06-2022 Calcium [Mass/Vol] 9.7 mg/dL 8.5-10.1 [facility] Work Phone: Serum or plasma creatinine m easurement (mass/volume)on 04-06-2022 Creatinine [Mass/Vol] 1.01 mg/dL 0.55-1.02 [facility] Work Phone: Comment on above: The validity of the calculated GFR & GFRAA in patients over 70 years has not been determined. Clinical correlation is essential. Serum or plasma urea nitroge n measurement (mass/volume)on 04-06-2022 Urea nitrogen [Mass/Vol] 6 mg/dL 7-18 [facility] Work Phone: Thin prep Papanicolaou smear with manual screeningon 04-06-2022 Thin prep Papanicolaou smear with manual screening 11 5-15 [facility] Work Phone: Whole blood hemoglobin A1c/t otal hemoglobin ratio (mass fraction)on 04-06-2022 HbA1c (Bld) [Mass fraction] 10.0 % 3.8-5.6 [facility] Work Phone: Comment on above: Normal < 5.7 % Predi abetic 5.7 - 6.4 % Diabetic >or= 6.5 % Please note range changes. Absolute lymphocyte counton 04-05-2022 Lymphocytes Auto (Unsp spec) [#/Vol] 2.49 10*3/uL 0.83-4.51 [facility] Work Phone: Basophil percentageon 2021 Basophils/100 WBC (Bld) 0.2 % 0-1 [facility] Work Phone: Chloride [Moles/Vol] 93 mmol[facility]L 98-107 [facility] Work [facility]: Eosinophils/100 WBC (Bld) 0.2 % 0-5 [facility] Work Phone: [phone] Glucose [Mass/Vol] 389 mg/dL 74-106 [facility] Work Phone: [phone] Comment on above: Glucose result great er than or equal to 200 mg/dLsuggests DIABETES MELLITUS per A.D.A. criteria. Lactate [Moles/Vol] 2.5 mmol/L 0.4-2.0 [facility] Work [facility]: [phone] Comment on above: Critical Result(s) C alled at: 13:33:37 04/05/2022 by: Gayathri Torres. Results read back by same. Neutrophils (Bld) [#/Vol] 13.7 10*3/uL 2.0-7.7 [facility] Work Phone: [phone] Neutrophils/100 WBC (Bld) 78.3 % 47-70 [facility] Work Phone: Potassium [Moles/Vol] 4.0 mmol/L 3.5-5.1 [facility] Work [facility]: Sodium [Moles/Vol] 132 mmol/L 136-145 [facility] Work Phone: WBC (Bld) [#/Vol] 17.5 10*3/uL 4.4-11.0 [facility] Work Phone: [phone] Blood erythrocytes count (nu mber/volume)on 04-05-2022 RBC (Bld) [#/Vol] 4.50 10*6/uL 4.2-5.4 [facility] Work Phone: Blood hemoglobin measurement (mass/volume)on 04-05-2022 Hemoglobin (Bld) [Mass/Vol] 12.7 g/dL 12.0-15.0 [facility] Work Phone: [phone] Blood lymphocytes/100 leukoc yteson 04-05-2022 Lymphocytes/100 WBC (Bld) 14.2 % 19-41 [facility] Work Phone: [phone] Blood monocytes/100 leukocyt eson 04-05-2022 Monocytes/100 WBC (Bld) 6.3 % 0-10 [facility] Work Phone: Blood platelet mean volumeon 04-05-2022 Platelet mean volume (Bld) [Entitic vol] 9.7 fL 6.2-12.0 [facility] Work Phone: Determination of erythrocyte mean corpuscular volume (MCV)on 04-05-2022 MCV (RBC) [Entitic vol] 82.2 fL 81-99 [facility] Work Phone: Hematocrit Auto (Bld) [Volum e fraction]on 04-05-2022 Hematocrit (Bld) [Volume fraction] 37.0 % 37-47 [facility] Work Phone: Laboratory - Chemistry and C hemistry - challengeon 04-05-2022 CO2 [Moles/Vol] 28.0 mmol/L 21.0-32.0 [facility] Work Phone: Urea nitrogen/Creatinine [Mass ratio] 8.5 mg/mg 10-20 [facility] Work Phone: [phone] Laboratory - Hematology and Cell countson 04-05-2022 Erythrocyte distribution width (RBC) [Entitic vol] 40.1 fL 35.1-43.9 [facility] Work Phone: [phone] Erythrocyte distribution width (RBC) [Ratio] 13.5 % 11.6-14.6 [facility] Work Phone: Immature granulocytes/100 WBC (Bld) 0.800 % 0.0-0.9 [facility] Work Phone: [phone] Comment on above: IG% - Immature Granu locytes (promyelocytes, myelocytes and metamyelocytes) > 1% indicates that a LEFT SHIFT is Present. MCH (RBC) [Entitic mass] 28.2 pg 27.0-32.0 [facility] Work Phone: [phone] Nucleated RBC/100 WBC (Bld) [Ratio] 0 % 0-5 [facility] Work Phone: [phone] MCHC Auto (RBC) [Mass/Vol]on 04-05-2022 MCHC (RBC) [Mass/Vol] 34.3 g/dL 32-36 [facility] Work Phone: No Panel Informationon 04-05 Estimated Creatinine Clearance Calc 92.78 ml/min [facility] Work Phone: [phone] Estimated GFR (MDRD) Amer 104 mL/min >60 [facility] Work Phone: [phone] Comment on above: GFR Calc Estimated GFR (MDRD) Non-Af Amer 86 mL/min >60 [facility] Work Phone: [phone] Comment on above: Non- GFR Calc Platelets bldon 04-05-2022 Platelets (Bld) [#/Vol] 444 10*3/uL 150-450 [facility] Work Phone: [phone] Serum or plasma calcium hussein urement (mass/volume)on 04-05-2022 Calcium [Mass/Vol] 9.2 mg/dL 8.5-10.1 [facility] Work Phone: [phone] Serum or plasma creatinine m easurement (mass/volume)on 04-05-2022 Creatinine [Mass/Vol] 0.83 mg/dL 0.55-1.02 [facility] Work Phone: [phone] Comment on above: The validity of the calculated GFR & GFRAA in patients over 70 years has not been determined. Clinical correlation is essential. Serum or plasma urea nitroge n measurement (mass/volume)on 04-05-2022 Urea nitrogen [Mass/Vol] 7 mg/dL 7-18 [facility] Work Phone: Thin prep Papanicolaou smear with manual screeningon 04-05-2022 Thin prep Papanicolaou smear with manual screening 11 5-15 [facility] Work Phone: XR CHEST 2V FRONTAL/LATon [facility] XR Chest PA and Lateralon IMPRESSION: Within normal limits. No acute radiographic abnormality. [employer]ye Bath Operator: PSCB Transcribe Date/Time: Mar 23 2022 1:11P Dictated by : CINDY OBRIEN MD This examination was interpreted and the report reviewed and electronically signed by: CINDY OBRIEN MD on Mar 23 2022 1:14PM [facility] DIVISION OF RADIOLOGY * * *Final Report* [...] soft tissues: Unremarkable. DIVISION OF RADIOLOGY Provider, [facility] * * *Final Report* [...] Within normal limits. No acute radiographic abnormality. Lye Bath Operator: OLGA Transcribe Date/Time: Mar 23 2022 1:11P Dictated by : CINDY OBRIEN MD This examination was interpreted and the report reviewed and electronically signed by: CINDY OBRIEN MD on Mar 23 2022 1:14PM EST [facility] Radiology Study observation (narrative) Melissa gupta [facility] XR Chest PA and LateralOrder ed By: Ccf Provider on 03-23-2022 [facility] Absolute lymphocyte counton 02-01-2022 Lymphocytes Auto (Unsp spec) [#/Vol] 3.62 10*3/uL 0.83-4.51 [facility] Work Phone: Basophil percentageon 2021 Basophil percentage 0-5 SEEN /hpf 0-[address] [facility] Work Phone: Basophils/100 WBC (Bld) 0.3 % 0-1 [facility] Work Phone: Bilirubin [Mass/Vol] 0.40 mg/dL 0.20-1.00 [facility] Work Phone: Comment on above: For patients on eltr ombopag therapy, use of Dimension [place] TBIL is not recommended. Chloride [Moles/Vol] 98 mmol/L 98-107 [facility] Work Phone: Eosinophils/100 WBC (Bld) 0.5 % 0-5 [facility] Work Phone: Glucose [Mass/Vol] 334 mg/dL 74-106 [facility] Work Phone: Comment on above: Glucose result great er than or equal to 200 mg/dLsuggests DIABETES MELLITUS per A.D.A. criteria. Lactate [Moles/Vol] 2.5 mmol/L 0.4-2.0 [facility]: Comment on above: Critical Result(s) C alled at: 13:53:33 02/01/2022 by: Gayathri wayne Sabine. Results read back by same. Neutrophils (Bld) [#/Vol] 5.5 10*3/uL 2.0-7.7 [facility] Work Phone: Neutrophils/100 WBC (Bld) 54.6 % 47-70 [facility] Work Phone: Potassium [Moles/Vol] 3.2 mmol/L 3.5-5.1 [facility]: Protein [Mass/Vol] 7.2 g/dL 6.4-8.2 [facility] Work Phone: Sodium [Moles/Vol] 131 mmol/L 136-145 [facility] Work Phone: WBC (Bld) [#/Vol] 10.1 10*3/uL 4.4-11.0 [facility] Work Phone: Beta hCG serum qualon 2021 Beta HCG ( test) Ql Negative [facility] Work Phone: Bilirubin Test strip Ql (U)o n 02-01-2022 Bilirubin Ql (U) Negative Negative [facility] Work Phone: Blood erythrocytes count (nu mber/volume)on 02-01-2022 RBC (Bld) [#/Vol] 4.45 10*6/uL 4.2-5.4 [facility] Work Phone: Blood hemoglobin measurement (mass/volume)on 02-01-2022 Hemoglobin (Bld) [Mass/Vol] 11.7 g/dL 12.0-15.0 [facility] Work Phone: Blood lymphocytes/100 leukoc yteson 02-01-2022 Lymphocytes/100 WBC (Bld) 35.9 % 19-41 [facility] Work Phone: Blood monocytes/100 leukocyt eson 02-01-2022 Monocytes/100 WBC (Bld) 7.8 % 0-10 [facility] Work Phone: Blood platelet mean volumeon 02-01-2022 Platelet mean volume (Bld) [Entitic vol] 9.7 fL 6.2-12.0 [facility] Work Phone: [phone] Determination of erythrocyte mean corpuscular volume (MCV)on 02-01-2022 MCV (RBC) [Entitic vol] 80.2 fL 81-99 [facility] Work Phone: [phone] Hematocrit Auto (Bld) [Volum e fraction]on 02-01-2022 Hematocrit (Bld) [Volume fraction] 35.7 % 37-47 [facility] Work Phone: [phone] Ketones Test strip Ql (U)on 02-01-2022 Ketones Ql (U) Negative Negative [facility] Work Phone: [phone] Laboratory - Chemistry and C hemistry - challengeon 02-01-2022 ALP [Catalytic activity/Vol] 79 U/L 45-117 [facility] Work Phone: [phone] ALT [Catalytic activity/Vol] 12 U/L 13-56 [facility] Work Phone: [phone] CO2 [Moles/Vol] 24.0 mmol/L 21.0-32.0 [facility] Work Phone: [phone] Globulin (S) [Mass/Vol] 4.5 g/dL 2.2-4.2 [facility] Work Phone: [phone] Lipase [Catalytic activity/Vol] 154 U/L 73-393 [facility] Work Phone: [phone] Urea nitrogen/Creatinine [Mass ratio] 6.9 mg/mg 10-20 [facility] Work Phone: [phone] Laboratory - Hematology and Cell countson 02-01-2022 Erythrocyte distribution width (RBC) [Entitic vol] 39.5 fL 35.1-43.9 [facility] Work Phone: [phone] Erythrocyte distribution width (RBC) [Ratio] 13.7 % 11.6-14.6 [facility] Work Phone: [phone] Immature granulocytes/100 WBC (Bld) 0.900 % 0.0-0.9 [facility] Work Phone: Comment on above: IG% - Immature Granu locytes (promyelocytes, myelocytes and metamyelocytes) > 1% indicates that a LEFT SHIFT is Present. MCH (RBC) [Entitic mass] 26.3 pg 27.0-32.0 [facility] Work Phone: Nucleated RBC/100 WBC (Bld) [Ratio] 0 % 0-5 [facility] Work Phone: [phone] MCHC Auto (RBC) [Mass/Vol]on 02-01-2022 MCHC (RBC) [Mass/Vol] 32.8 g/dL 32-36 [facility] Work Phone: Mucus LM Ql (Urine sed)on Mucus Ql (Urine sed) 0 SEEN /hpf [facility] Work Phone: [phone] Nitrite Test strip Ql (U)on 02-01-2022 Nitrite Ql (U) Negative Negative [facility] Work Phone: No Panel Informationon 02-01 Estimated Creatinine Clearance Calc 75.50 ml/min [facility] Work Phone: [phone] Estimated GFR (MDRD) Amer 82 mL/min >60 [facility] Work Phone: Comment on above: GFR Calc Estimated GFR (MDRD) Non-Af Amer 68 mL/min >60 [facility] Work Phone: Comment on above: Non- GFR Calc Platelets bldon 02-01-2022 Platelets (Bld) [#/Vol] 368 10*3/uL 150-450 [facility] Work Phone: [phone] Protein Test strip Ql (U)on 02-01-2022 Protein Ql (U) 15 mg/dl Negative [facility] Work Phone: [phone] Serum or plasma albumin hussein urement (mass/volume)on 02-01-2022 Albumin [Mass/Vol] 2.7 g/dL 3.2-5.0 [facility] Work Phone: [phone] Serum or plasma albumin/glob ulin mass ratioon 02-01-2022 Albumin/Globulin [Mass ratio] 0.6 {ratio} 0.9-2.4 [facility] Work Phone: Serum or plasma calcium hussein urement (mass/volume)on 02-01-2022 Calcium [Mass/Vol] 8.7 mg/dL 8.5-10.1 [facility] Work Phone: [phone] Serum or plasma creatinine m easurement (mass/volume)on 02-01-2022 Creatinine [Mass/Vol] 1.02 mg/dL 0.55-1.02 [facility] Work Phone: Comment on above: The validity of the calculated GFR & GFRAA in patients over 70 years has not been determined. Clinical correlation is essential. Serum or plasma urea nitroge n measurement (mass/volume)on 02-01-2022 Urea nitrogen [Mass/Vol] 7 mg/dL 7-18 [facility] Work Phone: Squamous epithelial cells de tection in urine sediment by light microscopyon 02-01-2022 Epithelial cells.squamous LM Ql (Urine sed) 0-5 SEEN /hpf 5-10 [facility] Work Phone: Thin prep Papanicolaou smear with manual screeningon 02-01-2022 Thin prep Papanicolaou smear with manual screening 8 U/L 15-37 [facility] Work Phone: Thin prep Papanicolaou smear with manual screening 9 5-15 [facility] Work Phone: Urine blood detectionon 01-10 RBC Ql (U) 50 /ul Negative [facility] Work Phone: RBC Ql (U) 0-5 SEEN /hpf 0-5 [facility] Work Phone: [phone] Urine clarityon 02-01-2022 Clarity (U) Clear Clear [facility] Work Phone: Urine color determinationon 02-01-2022 Color (U) Yellow Yellow [facility] Work Phone: [phone] Urine glucose detectionon Glucose Ql (U) 1000 mg/dl Normal [facility] Work Phone: Urine leukocyte esterase det ection by dipstickon 02-01-2022 Leukocyte esterase Test strip Ql (U) 25 /ul Negative [facility] Work Phone: Urine pHon 02-01-2022 pH (U) 5.0 [pH] 5.0 - 8.0 [facility] Work Phone: Urine sediment bacteria coun t by microscopy (number/high power field)on 02-01-2022 Bacteria LM.HPF (Urine sed) [#/Area] 0 /[HPF] None Seen [facility] Work Phone: Urine specific gravity measu rementon 02-01-2022 Specific gravity (U) [Rel density] 1.020 1.002-1.030 [facility] Work Phone: Urobilinogen Auto test strip Ql (U)on 02-01-2022 Urobilinogen Ql (U) Normal mg/dl Normal [facility] Work Phone: Absolute lymphocyte counton 01-30-2022 Lymphocytes Auto (Unsp spec) [#/Vol] 5.16 10*3/uL 0.83-4.51 [facility] Work Phone: Albumin Elph [Mass/Vol]on Albumin [Mass/Vol] 3.6 g/dL 2.9-4.4 [facility] Work Phone: Atypical perinuclear antineu trophil cytoplasmic antibodies measurementon 01-30-2022 Neutrophil cytoplasmic Ab.perinuclear.atypical IF (S) [Titer] <1:20 titer Neg:<1:20 [facility] Work Phone: Comment on above: The atypical pANCA p attern has been observed in asignificant percentage of patients with ulcerative colitis,primary sclerosing cholangitis and autoimmune hepatitis.Performed at: [address] [id number] Director: Wade Lazo PhD, Phone: [phone] at: [address] [place], [place] [id number] Director: Philip Robles MD, Phone: [phone] Basophil percentageon 2021 Amylase [Catalytic activity/Vol] 19 U/L 25-115 [facility] Work Phone: Basophil percentage < 0.2 AI 0.0-0.9 [facility] Work Phone: [phone] Basophils/100 WBC (Bld) 0.3 % 0-1 [facility] Work Phone: [phone] Eosinophils/100 WBC (Bld) 0.5 % 0-5 [facility] Work Phone: [phone] Neutrophils (Bld) [#/Vol] 8.8 10*3/uL 2.0-7.7 [facility] Work Phone: [phone] Neutrophils/100 WBC (Bld) 57.5 % 47-70 [facility] Work Phone: [phone] WBC (Bld) [#/Vol] 15.3 10*3/uL 4.4-11.0 [facility] Work Phone: [phone] Blood erythrocytes count (nu mber/volume)on 01-30-2022 RBC (Bld) [#/Vol] 5.33 10*6/uL 4.2-5.4 [facility] Work Phone: [phone] Blood hemoglobin measurement (mass/volume)on 01-30-2022 Hemoglobin (Bld) [Mass/Vol] 13.9 g/dL 12.0-15.0 [facility] Work Phone: [phone] Blood lymphocytes/100 leukoc yteson 01-30-2022 Lymphocytes/100 WBC (Bld) 33.7 % 19-41 [facility] Work Phone: [phone] Blood manual differential co mment interpretation (narrative result)on 01-30-2022 Manual differential comment Farnky (Bld) [Interp] SCANNED [facility] Work Phone: Comment on above: LYMPHOCYTOSIS NOTED Blood monocytes/100 leukocyt eson 01-30-2022 Monocytes/100 WBC (Bld) 7.2 % 0-10 [facility] Work Phone: Blood platelet mean volumeon 01-30-2022 Platelet mean volume (Bld) [Entitic vol] 9.5 fL 6.2-12.0 [facility] Work Phone: Determination of erythrocyte mean corpuscular volume (MCV)on 01-30-2022 MCV (RBC) [Entitic vol] 80.3 fL 81-99 [facility] Work Phone: Erythrocyte sedimentation ra abeba 01-30-2022 ESR (Bld) [Velocity] 81 mm[facility]h 0-30 [facility]: [phone] Hematocrit Auto (Bld) [Volum e fraction]on 01-30-2022 Hematocrit (Bld) [Volume fraction] 42.8 % 37-47 [facility] Work Phone: Interpretation of serum or p lasma protein pattern by immunofixation (narrative resulton 01-30-2022 Protein Fractions Immunofixation Franky [Interp] See comment [facility] Work Phone: Comment on above: NOT OBSERVED Laboratory - Chemistry and C hemistry - challengeon 01-30-2022 Cobalamin (Vitamin B12) [Mass/Vol] 318 pg/mL 211-911 [facility] Work Phone: Lipase [Catalytic activity/Vol] 150 U/L 73-393 [facility] Work Phone: Laboratory - Hematology and Cell countson 01-30-2022 Erythrocyte distribution width (RBC) [Entitic vol] 40.0 fL 35.1-43.9 [facility] Work Phone: [phone] Erythrocyte distribution width (RBC) [Ratio] 14.0 % 11.6-14.6 [facility] Work Phone: Immature granulocytes/100 WBC (Bld) 0.800 % 0.0-0.9 [facility] Work Phone: [phone] Comment on above: IG% - Immature Granu locytes (promyelocytes, myelocytes and metamyelocytes) > 1% indicates that a LEFT SHIFT is Present. MCH (RBC) [Entitic mass] 26.1 pg 27.0-32.0 [facility] Work Phone: Nucleated RBC/100 WBC (Bld) [Ratio] 0 % 0-5 [facility] Work Phone: [phone] MCHC Auto (RBC) [Mass/Vol]on 01-30-2022 MCHC (RBC) [Mass/Vol] 32.5 g/dL 32-36 [facility] Work Phone: [phone] Panel Informationon 01-30 Addendum Document Comment . [facility] Work Phone: [phone] Comment on above: Protein electrophore sis scan will follow via computer,mail, or tanbark laborer delivery. Centromere B Antibody <0.2 AI 0.0-0.9 [facility] Work Phone: [phone] Endomysial IgA Antibody Negative Negative [facility] Work Phone: Immunoglobulin E 119 IU/mL 6-495 [facility] Work Phone: [phone] VALVE ASSEMBLER Antibody <0.2 AI 0.0-0.9 [facility] Work Phone: [phone] Thyroid Stimulating Hormone (TSH) 2.21 uIU/mL 0.358-3.74 [facility] Work Phone: [phone] Platelets bldon 01-30-2022 Platelets (Bld) [#/Vol] 484 10*3/uL 150-450 [facility] Work Phone: [phone] Serum DNA double strand anti body assay (units/volume)on 01-30-2022 DNA double strand Ab Qn (S) [IU]/mL 0-9 [facility] Work Phone: [phone] Comment on above: Negative <5 Equivoca l 5 - 9 Positive >9 Serum Neva-1 antibody assay (u nits/volume)on 01-30-2022 Neva-1 extractable nuclear Ab Qn (S) <0.2 AI 0.0-0.9 [facility] Work Phone: Serum Scl-70 extractable nuc lear antibody assay (units/volume)on 01-30-2022 SCL-70 extractable nuclear Ab Qn (S) <0.2 AI 0.0-0.9 [facility] Work Phone: Serum Jang extractable nucl ear antibody detectionon 01-30-2022 Jang extractable nuclear Ab Ql (S) <0.2 AI 0.0-0.9 [facility] Work Phone: Serum [id number] measu rement by electrophoresison 01-30-2022 Alpha 1 globulin Elph [Mass/Vol] 0.2 g/dL 0.0-0.4 [facility] Work Phone: Alpha 1 globulin Elph [Mass/Vol] 1.6 g/dL 0.4-1.0 [facility] Work Phone: Serum classic neutrophil cyt oplasmic antibody assay (units/volume)on 01-30-2022 Neutrophil cytoplasmic Ab.classic Qn (S) 1:80 titer Neg:<1:20 [facility] Work Phone: Serum globulin measurement ( mass/volume)on 01-30-2022 Globulin (S) [Mass/Vol] 4.8 g/dL 2.2-3.9 [facility] Work Phone: Serum or plasma C reactive p rotein measurement (mass/volume)on 01-30-2022 CRP [Mass/Vol] 53.10 mg/L 0.0-3.0 [facility] Work Phone: Comment on above: C-Reactive Protein ( CRP) provides useful information for thediagnosis, therapy and monitoring of inflammatory processesand associated diseases. For the evaluation of Relative Riskfor Cardiovascular Disease, a High Sensitivity CRP (HSCRP)should be ordered. Serum or plasma IgA measurem ent (mass/volume)on 01-30-2022 IgA [Mass/Vol] 478 mg/dL 87-352 [facility] Work Phone: Serum or plasma IgG measurem ent (mass/volume)on 01-30-2022 IgG [Mass/Vol] 1630 mg/dL [phone] [facility] Work Phone: Serum or plasma IgM measurem ent (mass/volume)on 01-30-2022 IgM [Mass/Vol] 294 mg/dL 26-217 [facility] Work Phone: Serum or plasma beta globuli n measurement by electrophoresis (mass/volume)on 01-30-2022 Beta globulin Elph [Mass/Vol] 1.0 g/dL 0.7-1.3 [facility] Work Phone: Serum or plasma folate measu rement (mass/volume)on 01-30-2022 Folate [Mass/Vol] 13.50 ng/mL 3.1-55.4 [facility] Work Phone: Serum or plasma gamma globul in measurement by electrophoresis (mass/volume)on 01-30-2022 Gamma globulin Elph [Mass/Vol] 1.9 g/dL 0.4-1.8 [facility] Work Phone: Serum or plasma immunoelectr ophoresis interpretation (nominal result)on 01-30-2022 Interpretation IEP [Interp] Comment . [facility] Work Phone: Comment on above: No monoclonality det ected. Serum perinuclear neutrophil cytoplasmic antibody titer by immunofluorescenceon 01-30-2022 Neutrophil cytoplasmic Ab.perinuclear IF (S) [Titer] <1:20 titer Neg:<1:20 [facility] Work Phone: Comment on above: The presence of posi tive fluorescence exhibiting P-ANCA orC-ANCA patterns alone is not specific for the diagnosis ofWegener's Granulomatosis (WG) or microscopic polyangiitis.Decisions about treatment should not be based solely onANCA IFA results. The [employer] AN[employer] Consensusrecommends follow up testing of positive sera with both ME-3 and MPO-ANCA enzyme immunoassays. As many as 5% serumsamples are positive only by EIA. Ref. AM J Clin Wroazv8295;111:507-513. Serum tissue transglutaminas e IgA antibody assay (units/volume)on 01-30-2022 tTG IgA Qn (S) <2 U/mL 0-3 [facility] Work Phone: Comment on above: Negative 0 - 3 Weak Positive 4 - 10 Positive >10 Tissue Transglutaminase (tTG) has been identified as the endomysial antigen. Studies have demonstr- ated that endomysial IgA antibodies have over 99% specificity for gluten sensitive enteropathy. Thin prep Papanicolaou smear with manual screeningon 01-30-2022 Thin prep Papanicolaou smear with manual screening 153 U/L 84-246 [facility] Work Phone: Thin prep Papanicolaou smear with manual screening 0.8 0.7-1.7 [facility] Work Phone: [phone] Total protein bloodon 2021 Protein [Mass/Vol] 8.4 g/dL 6.0-8.5 [facility] Work Phone: [phone] Whole blood hemoglobin A1c/t otal hemoglobin ratio (mass fraction)on 01-30-2022 HbA1c (Bld) [Mass fraction] 11.4 % 3.8-5.6 [facility] Work Phone: Comment on above: Normal < 5.7 % Predi abetic 5.7 - 6.4 % Diabetic >or= 6.5 % Please note range changes. Absolute lymphocyte counton 01-26-2022 Lymphocytes Auto (Unsp spec) [#/Vol] 4.70 10*3/uL 0.83-4.51 [facility] Work Phone: Basophil percentageon 2021 Basophils/100 WBC (Bld) 0.4 % 0-1 [facility] Work Phone: Bilirubin [Mass/Vol] 0.40 mg/dL 0.20-1.00 [facility] Work Phone: [phone] Comment on above: For patients on eltr ombopag therapy, use of Dimension [place] TBIL is not recommended. Chloride [Moles/Vol] 101 mmol/L 98-107 [facility] Work Phone: Eosinophils/100 WBC (Bld) 0.2 % 0-5 [facility] Work Phone: Glucose [Mass/Vol] 320 mg/dL 74-106 [facility] Work Phone: Comment on above: Glucose result great er than or equal to 200 mg/dLsuggests DIABETES MELLITUS per A.D.A. criteria. Neutrophils (Bld) [#/Vol] 5.6 10*3/uL 2.0-7.7 [facility] Work Phone: Neutrophils/100 WBC (Bld) 50.6 % 47-70 [facility] Work Phone: Potassium [Moles/Vol] 3.6 mmol/L 3.5-5.1 [facility] Work Phone: Protein [Mass/Vol] 8.5 g/dL 6.4-8.2 [facility] Work Phone: Sodium [Moles/Vol] 136 mmol/L 136-145 [facility] Work Phone: WBC (Bld) [#/Vol] 11.1 10*3/uL 4.4-11.0 [facility] Work [facility]: Blood erythrocytes count (nu mber/volume)on 01-26-2022 RBC (Bld) [#/Vol] 4.99 10*6/uL 4.2-5.4 [facility] Work Phone: Blood hemoglobin measurement (mass/volume)on 01-26-2022 Hemoglobin (Bld) [Mass/Vol] 12.9 g/dL 12.0-15.0 [facility] Work Phone: Blood lymphocytes/100 leukoc yteson 01-26-2022 Lymphocytes/100 WBC (Bld) 42.2 % 19-41 [facility] Work Phone: Blood monocytes/100 leukocyt eson 01-26-2022 Monocytes/100 WBC (Bld) 5.9 % 0-10 [facility] Work Phone: Blood platelet mean volumeon 01-26-2022 Platelet mean volume (Bld) [Entitic vol] 9.5 fL 6.2-12.0 [facility] Work Phone: [phone] Determination of erythrocyte mean corpuscular volume (MCV)on 01-26-2022 MCV (RBC) [Entitic vol] 77.8 fL 81-99 [facility] Work Phone: [phone] Hematocrit Auto (Bld) [Volum e fraction]on 01-26-2022 Hematocrit (Bld) [Volume fraction] 38.8 % 37-47 [facility] Work Phone: [phone] Laboratory - Chemistry and C hemistry - challengeon 01-26-2022 ALP [Catalytic activity/Vol] 85 U/L 45-117 [facility] Work Phone: [phone] ALT [Catalytic activity/Vol] 14 U/L 13-56 [facility] Work Phone: [phone] CO2 [Moles/Vol] 26.0 mmol/L 21.0-32.0 [facility] Work Phone: [phone] Globulin (S) [Mass/Vol] 5.3 g/dL 2.2-4.2 [facility] Work Phone: [phone] Lipase [Catalytic activity/Vol] 179 U/L 73-393 [facility] Work Phone: [phone] Urea nitrogen/Creatinine [Mass ratio] 13.1 mg/mg 10-20 [facility] Work Phone: [phone] Laboratory - Hematology and Cell countson 01-26-2022 Erythrocyte distribution width (RBC) [Entitic vol] 37.9 fL 35.1-43.9 [facility] Work Phone: [phone] Erythrocyte distribution width (RBC) [Ratio] 13.8 % 11.6-14.6 [facility] Work Phone: [phone] Immature granulocytes/100 WBC (Bld) 0.700 % 0.0-0.9 [facility] Work Phone: [phone] Comment on above: IG% - Immature Granu locytes (promyelocytes, myelocytes and metamyelocytes) > 1% indicates that a LEFT SHIFT is Present. MCH (RBC) [Entitic mass] 25.9 pg 27.0-32.0 [facility] Work Phone: [phone] Nucleated RBC/100 WBC (Bld) [Ratio] 0 % 0-5 [facility] Work Phone: [phone] MCHC Auto (RBC) [Mass/Vol]on 01-26-2022 MCHC (RBC) [Mass/Vol] 33.2 g/dL 32-36 [facility] Work Phone: No Panel Informationon 01-26 Estimated Creatinine Clearance Calc 84.46 ml/min [facility] Work Phone: [phone] Estimated GFR (MDRD) Amer 92 mL/min >60 [facility] Work Phone: [phone] Comment on above: GFR Calc Estimated GFR (MDRD) Non-Af Amer 76 mL/min >60 [facility] Work Phone: Comment on above: Non- GFR Calc Platelets bldon 01-26-2022 Platelets (Bld) [#/Vol] 474 10*3/uL 150-450 [facility] Work Phone: Serum or plasma albumin hussein urement (mass/volume)on 01-26-2022 Albumin [Mass/Vol] 3.2 g/dL 3.2-5.0 [facility] Work Phone: Serum or plasma albumin/glob ulin mass ratioon 01-26-2022 Albumin/Globulin [Mass ratio] 0.6 {ratio} 0.9-2.4 [facility] Work Phone: [phone] Serum or plasma calcium hussein urement (mass/volume)on 01-26-2022 Calcium [Mass/Vol] 9.3 mg/dL 8.5-10.1 [facility] Work Phone: [phone] Serum or plasma creatinine m easurement (mass/volume)on 01-26-2022 Creatinine [Mass/Vol] 0.92 mg/dL 0.55-1.02 [facility] Work Phone: [phone] Comment on above: The validity of the calculated GFR & GFRAA in patients over 70 years has not been determined. Clinical correlation is essential. Serum or plasma urea nitroge n measurement (mass/volume)on 01-26-2022 Urea nitrogen [Mass/Vol] 12 mg/dL 7-18 [facility] Work Phone: Thin prep Papanicolaou smear with manual screeningon 01-26-2022 Thin prep Papanicolaou smear with manual screening 7 U/L 15-37 [facility] Work Phone: Thin prep Papanicolaou smear with manual screening 9 5-15 [facility] Work Phone: Absolute lymphocyte counton 01-23-2022 Lymphocytes Auto (Unsp spec) [#/Vol] 3.74 10*3/uL 0.83-4.51 [facility] Work Phone: Basophil percentageon 2021 Basophils/100 WBC (Bld) 0.4 % 0-1 [facility] Work Phone: Chloride [Moles/Vol] 97 mmol/L 98-107 [facility] Work Phone: Eosinophils/100 WBC (Bld) 0.4 % 0-5 [facility] Work Phone: Glucose [Mass/Vol] 362 mg/dL 74-106 [facility] Work Phone: Comment on above: Glucose result great er than or equal to 200 mg/dLsuggests DIABETES MELLITUS per A.D.A. criteria. Neutrophils (Bld) [#/Vol] 5.3 10*3/uL 2.0-7.7 [facility] Work Phone: Neutrophils/100 WBC (Bld) 53.8 % 47-70 [facility] Work Phone: Potassium [Moles/Vol] 4.0 mmol/L 3.5-5.1 [facility] Work Phone: Sodium [Moles/Vol] 131 mmol/L 136-145 [facility] Work Phone: WBC (Bld) [#/Vol] 9.8 10*3/uL 4.4-11.0 [facility]: Blood erythrocytes count (nu mber/volume)on 01-23-2022 RBC (Bld) [#/Vol] 5.18 10*6/uL 4.2-5.4 [facility] Work Phone: Blood hemoglobin measurement (mass/volume)on 01-23-2022 Hemoglobin (Bld) [Mass/Vol] 13.4 g/dL 12.0-15.0 [facility] Work Phone: Blood lymphocytes/100 leukoc yteson 01-23-2022 Lymphocytes/100 WBC (Bld) 38.3 % 19-41 [facility] Work Phone: Blood monocytes/100 leukocyt eson 01-23-2022 Monocytes/100 WBC (Bld) 6.3 % 0-10 [facility] Work Phone: Blood platelet mean volumeon 01-23-2022 Platelet mean volume (Bld) [Entitic vol] 9.2 fL 6.2-12.0 [facility] Work Phone: Determination of erythrocyte mean corpuscular volume (MCV)on 01-23-2022 MCV (RBC) [Entitic vol] 78.2 fL 81-99 [facility] Work Phone: Hematocrit Auto (Bld) [Volum e fraction]on 01-23-2022 Hematocrit (Bld) [Volume fraction] 40.5 % 37-47 [facility] Work Phone: Laboratory - Chemistry and C hemistry - challengeon 01-23-2022 CO2 [Moles/Vol] 24.0 mmol/L 21.0-32.0 [facility] Work Phone: Urea nitrogen/Creatinine [Mass ratio] 17.3 mg/mg 10-20 [facility] Work Phone: Laboratory - Hematology and Cell countson 01-23-2022 Erythrocyte distribution width (RBC) [Entitic vol] 38.2 fL 35.1-43.9 [facility] Work Phone: [phone] Erythrocyte distribution width (RBC) [Ratio] 13.5 % 11.6-14.6 [facility] Work Phone: [phone] Immature granulocytes/100 WBC (Bld) 0.800 % 0.0-0.9 [facility] Work Phone: [phone] Comment on above: IG% - Immature Granu locytes (promyelocytes, myelocytes and metamyelocytes) > 1% indicates that a LEFT SHIFT is Present. MCH (RBC) [Entitic mass] 25.9 pg 27.0-32.0 [facility] Work Phone: [phone] Nucleated RBC/100 WBC (Bld) [Ratio] 0 % 0-5 [facility] Work Phone: [phone] MCHC Auto (RBC) [Mass/Vol]on 01-23-2022 MCHC (RBC) [Mass/Vol] 33.1 g/dL 32-36 [facility] Work Phone: No Panel Informationon 01-23 Estimated Creatinine Clearance Calc 79.29 ml/min [facility] Work Phone: [phone] Estimated GFR (MDRD) Amer 85 mL/min >60 [facility] Work Phone: [phone] Comment on above: GFR Calc Estimated GFR (MDRD) Non-Af Amer 70 mL/min >60 [facility] Work Phone: [phone] Comment on above: Non- GFR Calc Platelets bldon 01-23-2022 Platelets (Bld) [#/Vol] 470 10*3/uL 150-450 [facility] Work Phone: [phone] Serum or plasma calcium hussein urement (mass/volume)on 01-23-2022 Calcium [Mass/Vol] 9.6 mg/dL 8.5-10.1 [facility] Work Phone: [phone] Serum or plasma creatinine m easurement (mass/volume)on 01-23-2022 Creatinine [Mass/Vol] 0.98 mg/dL 0.55-1.02 [facility] Work Phone: [phone] Comment on above: The validity of the calculated GFR & GFRAA in patients over 70 years has not been determined. Clinical correlation is essential. Serum or plasma urea nitroge n measurement (mass/volume)on 01-23-2022 Urea nitrogen [Mass/Vol] 17 mg/dL 7-18 [facility] Work Phone: [phone] Thin prep Papanicolaou smear with manual screeningon 01-23-2022 Thin prep Papanicolaou smear with manual screening 10 -15 [facility] Work Phone: [phone] Glucose Glucometer (BldC) [M ass/Vol]on 01-22-2022 Glucose [Mass/Vol] 320 mg/dL 74-106 [facility] Work Phone: Comment on above: MANAGEMENT OF PATIEN T CARE PER NURSING PROTOCOL Glucose Glucometer (BldC) [M ass/Vol]on 01-16-2022 Glucose [Mass/Vol] 440 mg/dL 74-106 [facility] Work Phone: [phone] Comment on above: MANAGEMENT OF PATIEN T CARE PER NURSING PROTOCOL Absolute lymphocyte counton 11-16-2021 Lymphocytes Auto (Unsp spec) [#/Vol] 2.57 10*3/uL 0.83-4.51 [facility] Work Phone: Basophil percentageon 2021 Basophils/100 WBC (Bld) 0.4 % 0-1 [facility] Work Phone: [phone] Bilirubin [Mass/Vol] 0.50 mg/dL 0.20-1.00 [facility] Work Phone: [phone] Comment on above: For patients on eltr ombopag therapy, use of Dimension [place] TBIL is not recommended. Chloride [Moles/Vol] 99 mmol/L 98-107 [facility] Work Phone: [phone] Eosinophils/100 WBC (Bld) 0.6 % 0-5 [facility] Work Phone: [phone] Glucose [Mass/Vol] 331 mg/dL 74-106 [facility] Work Phone: [phone] Comment on above: Glucose result great er than or equal to 200 mg/dLsuggests DIABETES MELLITUS per A.D.A. criteria. Neutrophils (Bld) [#/Vol] 7.4 10*3/uL 2.0-7.7 [facility] Work Phone: [phone] Neutrophils/100 WBC (Bld) 68.0 % 47-70 [facility] Work Phone: [phone] Potassium [Moles/Vol] 4.1 mmol/L 3.5-5.1 [facility]: [phone] Protein [Mass/Vol] 8.7 g/dL 6.4-8.2 [facility] Work Phone: [phone] Sodium [Moles/Vol] 133 mmol/L 136-145 [facility] Work Phone: [phone] WBC (Bld) [#/Vol] 10.9 10*3/uL 4.4-11.0 [facility]: [phone] Blood erythrocytes count (nu mber/volume)on 11-16-2021 RBC (Bld) [#/Vol] 4.48 10*6/uL 4.2-5.4 [facility]: [phone] Blood hemoglobin measurement (mass/volume)on 11-16-2021 Hemoglobin (Bld) [Mass/Vol] 11.9 g/dL 12.0-15.0 [facility] Work Phone: Blood lymphocytes/100 leukoc yteson 11-16-2021 Lymphocytes/100 WBC (Bld) 23.5 % 19-41 [facility] Work Phone: Blood monocytes/100 leukocyt eson 11-16-2021 Monocytes/100 WBC (Bld) 6.7 % 0-10 [facility] Work Phone: Blood platelet mean volumeon 11-16-2021 Platelet mean volume (Bld) [Entitic vol] 9.2 fL 6.2-12.0 [facility] Work Phone: [phone] Determination of erythrocyte mean corpuscular volume (MCV)on 11-16-2021 MCV (RBC) [Entitic vol] 81.9 fL 81-99 [facility] Work Phone: [phone] Hematocrit Auto (Bld) [Volum e fraction]on 11-16-2021 Hematocrit (Bld) [Volume fraction] 36.7 % 37-47 [facility] Work Phone: [phone] Laboratory - Chemistry and C hemistry - challengeon 11-16-2021 ALP [Catalytic activity/Vol] 130 U/L 45-117 [facility] Work Phone: [phone] ALT [Catalytic activity/Vol] 12 U/L 13-56 [facility] Work Phone: [phone] CO2 [Moles/Vol] 27.0 mmol/L 21.0-32.0 [facility] Work Phone: [phone] Globulin (S) [Mass/Vol] 6.0 g/dL 2.2-4.2 [facility] Work Phone: [phone] Urea nitrogen/Creatinine [Mass ratio] 10.7 mg/mg 10-20 [facility] Work Phone: [phone] Laboratory - Hematology and Cell countson 11-16-2021 Erythrocyte distribution width (RBC) [Entitic vol] 38.0 fL 35.1-43.9 [facility] Work Phone: [phone] Erythrocyte distribution width (RBC) [Ratio] 12.7 % 11.6-14.6 [facility] Work Phone: [phone] Immature granulocytes/100 WBC (Bld) 0.800 % 0.0-0.9 [facility] Work Phone: [phone] Comment on above: IG% - Immature Granu locytes (promyelocytes, myelocytes and metamyelocytes) > 1% indicates that a LEFT SHIFT is Present. MCH (RBC) [Entitic mass] 26.6 pg 27.0-32.0 [facility] Work Phone: [phone] Nucleated RBC/100 WBC (Bld) [Ratio] 0 % 0-5 [facility] Work Phone: [phone] MCHC Auto (RBC) [Mass/Vol]on 11-16-2021 MCHC (RBC) [Mass/Vol] 32.4 g/dL 32-36 [facility] Work Phone: No Panel Informationon 11-16 Estimated Creatinine Clearance Calc 103.61 ml/min [facility] Work Phone: Estimated GFR (MDRD) Amer 117 mL/min >60 [facility] Work Phone: Comment on above: GFR Calc Estimated GFR (MDRD) Non-Af Amer 96 mL/min >60 [facility] Work Phone: Comment on above: Non- GFR Calc Platelets bldon 11-16-2021 Platelets (Bld) [#/Vol] 471 10*3/uL 150-450 [facility] Work Phone: Serum or plasma albumin hussein urement (mass/volume)on 11-16-2021 Albumin [Mass/Vol] 2.7 g/dL 3.2-5.0 [facility] Work Phone: Serum or plasma albumin/glob ulin mass ratioon 11-16-2021 Albumin/Globulin [Mass ratio] 0.4 {ratio} 0.9-2.4 [facility] Work Phone: Serum or plasma calcium hussein urement (mass/volume)on 11-16-2021 Calcium [Mass/Vol] 8.9 mg/dL 8.5-10.1 [facility] Work Phone: [phone] Serum or plasma creatinine m easurement (mass/volume)on 11-16-2021 Creatinine [Mass/Vol] 0.75 mg/dL 0.55-1.02 [facility] Work Phone: Comment on above: The validity of the calculated GFR & GFRAA in patients over 70 years has not been determined. Clinical correlation is essential. Serum or plasma urea nitroge n measurement (mass/volume)on 11-16-2021 Urea nitrogen [Mass/Vol] 8 mg/dL 7-18 [facility] Work Phone: Thin prep Papanicolaou smear with manual screeningon 11-16-2021 Thin prep Papanicolaou smear with manual screening 6 U/L 15-37 [facility] Work Phone: Thin prep Papanicolaou smear with manual screening 7 5-15 [facility] Work Phone: Absolute lymphocyte counton 10-29-2021 Lymphocytes Auto (Unsp spec) [#/Vol] 2.98 10*3/uL 0.83-4.51 [facility] Work Phone: Basophil percentageon 2021 Basophils/100 WBC (Bld) 0.5 % 0-1 [facility] Work Phone: Bilirubin [Mass/Vol] 0.30 mg/dL 0.20-1.00 [facility] Work Phone: Comment on above: For patients on eltr ombopag therapy, use of [place] TBIL is not recommended. Chloride [Moles/Vol] 99 mmol/L 98-107 [facility] Work Phone: Eosinophils/100 WBC (Bld) 0.2 % 0-5 [facility] Work Phone: [phone] Glucose [Mass/Vol] 387 mg/dL 74-106 [facility] Work Phone: Comment on above: Glucose result great er than or equal to 200 mg/dLsuggests DIABETES MELLITUS per A.D.A. criteria. Neutrophils (Bld) [#/Vol] 9.2 10*3/uL 2.0-7.7 [facility] Work Phone: Neutrophils/100 WBC (Bld) 70.3 % 47-70 [facility] Work Phone: Potassium [Moles/Vol] 4.4 mmol/L 3.5-5.1 [facility] Work Phone: Protein [Mass/Vol] 9.0 g/dL 6.4-8.2 [facility] Work Phone: [phone] Sodium [Moles/Vol] 130 mmol/L 136-145 [facility] Work Phone: WBC (Bld) [#/Vol] 13.0 10*3/uL 4.4-11.0 [facility] Work Phone: Blood erythrocytes count (nu mber/volume)on 10-29-2021 RBC (Bld) [#/Vol] 4.95 10*6/uL 4.2-5.4 [facility] Work Phone: [phone] Blood hemoglobin measurement (mass/volume)on 10-29-2021 Hemoglobin (Bld) [Mass/Vol] 13.3 g/dL 12.0-15.0 [facility] Work Phone: [phone] Blood lymphocytes/100 leukoc yteson 10-29-2021 Lymphocytes/100 WBC (Bld) 22.9 % 19-41 [facility] Work Phone: [phone] Blood monocytes/100 leukocyt eson 10-29-2021 Monocytes/100 WBC (Bld) 5.3 % 0-10 [facility] Work Phone: Blood platelet mean volumeon 10-29-2021 Platelet mean volume (Bld) [Entitic vol] 9.0 fL 6.2-12.0 [facility] Work Phone: Determination of erythrocyte mean corpuscular volume (MCV)on 10-29-2021 MCV (RBC) [Entitic vol] 80.0 fL 81-99 [facility] Work Phone: Hematocrit Auto (Bld) [Volum e fraction]on 10-29-2021 Hematocrit (Bld) [Volume fraction] 39.6 % 37-47 [facility] Work Phone: [phone] Laboratory - Chemistry and C hemistry - challengeon 10-29-2021 ALP [Catalytic activity/Vol] 156 U/L 45-117 [facility] Work Phone: [phone] ALT [Catalytic activity/Vol] 23 U/L 13-56 [facility] Work Phone: [phone] CO2 [Moles/Vol] 25.0 mmol/L 21.0-32.0 [facility] Work Phone: [phone] Globulin (S) [Mass/Vol] 5.9 g/dL 2.2-4.2 [facility] Work Phone: [phone] Urea nitrogen/Creatinine [Mass ratio] 13.8 mg/mg 10-20 [facility] Work Phone: [phone] Laboratory - Hematology and Cell countson 10-29-2021 Erythrocyte distribution width (RBC) [Entitic vol] 37.2 fL 35.1-43.9 [facility] Work Phone: [phone] Erythrocyte distribution width (RBC) [Ratio] 13.1 % 11.6-14.6 [facility] Work Phone: [phone] Immature granulocytes/100 WBC (Bld) 0.800 % 0.0-0.9 [facility] Work Phone: [phone] Comment on above: IG% - Immature Granu locytes (promyelocytes, myelocytes and metamyelocytes) > 1% indicates that a LEFT SHIFT is Present. MCH (RBC) [Entitic mass] 26.9 pg 27.0-32.0 [facility] Work Phone: [phone] Nucleated RBC/100 WBC (Bld) [Ratio] 0 % 0-5 [facility] Work Phone: [phone] MCHC Auto (RBC) [Mass/Vol]on 10-29-2021 MCHC (RBC) [Mass/Vol] 33.6 g/dL 32-36 [facility] Work Phone: [phone] Panel Informationon 10-29 Estimated Creatinine Clearance Calc 89.32 ml/min [facility] Work Phone: [phone] Estimated GFR (MDRD) Amer 99 mL/min >60 [facility] Work Phone: [phone] Comment on above: GFR Calc Estimated GFR (MDRD) Non-Af Amer 82 mL/min >60 [facility] Work Phone: [phone] Comment on above: Non- GFR Calc Platelets bldon 10-29-2021 Platelets (Bld) [#/Vol] 460 10*3/uL 150-450 [facility] Work Phone: Serum or plasma albumin hussein urement (mass/volume)on 10-29-2021 Albumin [Mass/Vol] 3.1 g/dL 3.2-5.0 [facility] Work Phone: Serum or plasma albumin/glob ulin mass ratioon 10-29-2021 Albumin/Globulin [Mass ratio] 0.5 {ratio} 0.9-2.4 [facility] Work Phone: Serum or plasma calcium hussein urement (mass/volume)on 10-29-2021 Calcium [Mass/Vol] 9.0 mg/dL 8.5-10.1 [facility] Work Phone: Serum or plasma choriogonado tropin detectionon 10-29-2021 HCG ( test) Ql < 1 mIU/mL <4 [facility] Work Phone: Comment on above: hCG levels with Gest ational AgeGestational Age hCG mIU/mL (IU/L)0.2 - 1 week 5 - 501-2 weeks 50 - 5002-3 weeks 100 - 67042-8 weeks 500 - 308517-4 weeks 1000 - 959150-8 weeks 46438 - 100,0006-8 weeks 33581 - 200,0002-3 months 83789 - 100,000 Serum or plasma creatinine m easurement (mass/volume)on 10-29-2021 Creatinine [Mass/Vol] 0.87 mg/dL 0.55-1.02 [facility] Work Phone: Comment on above: The validity of the calculated GFR & GFRAA in patients over 70 years has not been determined. Clinical correlation is essential. Serum or plasma urea nitroge n measurement (mass/volume)on 10-29-2021 Urea nitrogen [Mass/Vol] 12 mg/dL 7-18 [facility] Work Phone: Thin prep Papanicolaou smear with manual screeningon 10-29-2021 Thin prep Papanicolaou smear with manual screening 13 U/L 15-37 [facility] Work Phone: [phone] Thin prep Papanicolaou smear with manual screening 6 5-15 [facility] Work Phone: Absolute lymphocyte counton 08-10-2021 Lymphocytes Auto (Unsp spec) [#/Vol] 0.86 10*3/uL 0.83-4.51 [facility] Work Phone: Basophil percentageon 2021 Basophil percentage 5-10 SEEN /hpf [facility] Work Phone: Basophils/100 WBC (Bld) 0.2 % 0-1 [facility] Work Phone: Chloride [Moles/Vol] 100 mmol/L 98-107 [facility]: Eosinophils/100 WBC (Bld) 0.3 % 0-5 [facility] Work Phone: Glucose [Mass/Vol] 406 mg/dL 74-106 [facility] Work Phone: Comment on above: Glucose result great er than or equal to 200 mg/dLsuggests DIABETES MELLITUS per A.D.A. criteria. Neutrophils (Bld) [#/Vol] 12.4 10*3/uL 2.0-7.7 [facility] Work Phone: Neutrophils/100 WBC (Bld) 89.0 % 47-70 [facility] Work Phone: Potassium [Moles/Vol] 4.2 mmol/L 3.5-5.1 [facility] Work Phone: Sodium [Moles/Vol] 134 mmol/L 136-145 [facility] Work Phone: WBC (Bld) [#/Vol] 14.0 10*3/uL 4.4-11.0 [facility] Work [facility]: Beta hCG serum qualon 2021 Beta HCG ( test) Ql Negative [facility] Work Phone: Bilirubin Test strip Ql (U)o n 08-10-2021 Bilirubin Ql (U) Negative Negative [facility] Work Phone: Blood erythrocytes count (nu mber/volume)on 08-10-2021 RBC (Bld) [#/Vol] 5.34 10*6/uL 4.2-5.4 [facility] Work Phone: Blood hemoglobin measurement (mass/volume)on 08-10-2021 Hemoglobin (Bld) [Mass/Vol] 14.7 g/dL 12.0-15.0 [facility] Work Phone: [phone] Blood lymphocytes/100 leukoc yteson 08-10-2021 Lymphocytes/100 WBC (Bld) 6.1 % 19-41 [facility] Work Phone: [phone] Blood monocytes/100 leukocyt eson 08-10-2021 Monocytes/100 WBC (Bld) 4.0 % 0-10 [facility] Work Phone: [phone] Blood platelet mean volumeon 08-10-2021 Platelet mean volume (Bld) [Entitic vol] 9.6 fL 6.2-12.0 [facility] Work Phone: Determination of erythrocyte mean corpuscular volume (MCV)on 08-10-2021 MCV (RBC) [Entitic vol] 82.4 fL 81-99 [facility] Work Phone: Glucose Glucometer (BldC) [M ass/Vol]on 08-10-2021 Glucose [Mass/Vol] 377 mg/dL 70-110 [facility] Work Phone: Comment on above: MANAGEMENT OF PATIEN T CARE PER NURSING PROTOCOL Hematocrit Auto (Bld) [Volum e fraction]on 08-10-2021 Hematocrit (Bld) [Volume fraction] 44.0 % 37-47 [facility] Work Phone: [phone] Ketones Test strip Ql (U)on 08-10-2021 Ketones Ql (U) 150 mg/dl Negative [facility] Work Phone: Comment on above: CRITICAL VALUE *HCRI TICAL VALUE VERIFIED. CALLED TO Rafa PERAZA RN (ED)08/10/21 Manas Rebolledo.RESULTS READ BACK BY SAME . Laboratory - Chemistry and C hemistry - challengeon 08-10-2021 CO2 [Moles/Vol] 23.0 mmol/L 21.0-32.0 [facility] Work Phone: [phone] Urea nitrogen/Creatinine [Mass ratio] 18.6 mg/mg 10-20 [facility] Work Phone: [phone] Laboratory - Hematology and Cell countson 08-10-2021 Erythrocyte distribution width (RBC) [Entitic vol] 39.0 fL 35.1-43.9 [facility] Work Phone: [phone] Erythrocyte distribution width (RBC) [Ratio] 13.1 % 11.6-14.6 [facility] Work Phone: [phone] Immature granulocytes/100 WBC (Bld) 0.400 % 0.0-0.9 [facility] Work Phone: [phone] Comment on above: IG% - Immature Granu locytes (promyelocytes, myelocytes and metamyelocytes) > 1% indicates that a LEFT SHIFT is Present. MCH (RBC) [Entitic mass] 27.5 pg 27.0-32.0 [facility] Work Phone: [phone] Nucleated RBC/100 WBC (Bld) [Ratio] 0 % 0-5 [facility] Work Phone: [phone] MCHC Auto (RBC) [Mass/Vol]on 08-10-2021 MCHC (RBC) [Mass/Vol] 33.4 g/dL 32-36 [facility] Work Phone: [phone] Mucus LM Ql (Urine sed)on Mucus Ql (Urine sed) 0 SEEN /hpf [facility] Work Phone: [phone] Nitrite Test strip Ql (U)on 08-10-2021 Nitrite Ql (U) Negative Negative [facility] Work Phone: [phone] Panel Informationon 08-10 Estimated Creatinine Clearance Calc 90.36 ml/min [facility] Work Phone: [phone] Estimated GFR (MDRD) Amer 100 mL/min >60 [facility] Work Phone: [phone] Comment on above: GFR Calc Estimated GFR (MDRD) Non-Af Amer 83 mL/min >60 [facility] Work Phone: Comment on above: Non- GFR Calc Platelets bldon 08-10-2021 Platelets (Bld) [#/Vol] 343 10*3/uL 150-450 [facility] Work Phone: Protein Test strip Ql (U)on 08-10-2021 Protein Ql (U) 30 mg/dl Negative [facility] Work Phone: Serum or plasma calcium hussein urement (mass/volume)on 08-10-2021 Calcium [Mass/Vol] 8.8 mg/dL 8.5-10.1 [facility] Work Phone: Serum or plasma creatinine m easurement (mass/volume)on 08-10-2021 Creatinine [Mass/Vol] 0.86 mg/dL 0.55-1.02 [facility] Work Phone: Comment on above: The validity of the calculated GFR & GFRAA in patients over 70 years has not been determined. Clinical correlation is essential. Serum or plasma urea nitroge n measurement (mass/volume)on 08-10-2021 Urea nitrogen [Mass/Vol] 16 mg/dL 7-18 [facility] Work Phone: Squamous epithelial cells de tection in urine sediment by light microscopyon 08-10-2021 Epithelial cells.squamous LM Ql (Urine sed) 0-5 SEEN /hpf [facility] Work Phone: Thin prep Papanicolaou smear with manual screeningon 08-10-2021 Thin prep Papanicolaou smear with manual screening 11 5-15 [facility] Work Phone: Urine blood detectionon 07-14 0 RBC Ql (U) 250 /ul Negative [facility] Work Phone: RBC Ql (U) > 100 SEEN /hpf [facility] Work Phone: Urine clarityon 08-10-2021 Clarity (U) Cloudy Clear [facility] Work Phone: [phone] Urine color determinationon 08-10-2021 Color (U) Yellow Yellow [facility] Work Phone: Urine glucose detectionon Glucose Ql (U) 1000 mg/dl Normal [facility] Work Phone: Urine leukocyte esterase det ection by dipstickon 08-10-2021 Leukocyte esterase Test strip Ql (U) 25 /ul Negative [facility] Work Phone: Urine pHon 08-10-2021 pH (U) 7.0 [pH] [facility] Work Phone: Urine sediment bacteria coun t by microscopy (number/high power field)on 08-10-2021 Bacteria LM.HPF (Urine sed) [#/Area] 1 /[HPF] None Seen [facility] Work Phone: Urine specific gravity measu rementon 08-10-2021 Specific gravity (U) [Rel density] 1.005 [facility] Work Phone: Urobilinogen Auto test strip Ql (U)on 08-10-2021 Urobilinogen Ql (U) 1 mg/dl Normal [facility] Work Phone: XR Chest PA and Lateralon IMPRESSION: No acute radiographic abnormality. Lye Bath Operator: OLGA Transcribe Date/Time: May 15 2021 10:07A Dictated by : ELISEO LYON MD This examination was interpreted and the report reviewed and electronically signed by: ELISEO LYON MD on May 15 2021 10:08AM [facility] DIVISION OF RADIOLOGY * * *Final Report* [...] Unremarkable. DIVISION OF RADIOLOGY Provider, Susana enamorado [place] - 05/15/2021 * * *Final Report* * [...] Unremarkable. IMPRESSION IMPRESSION: No acute radiographic abnormality. [employer]ye Bath Operator: PSCB Transcribe Date/Time: May 15 2021 10:07A Dictated by : ELISEO LYON MD This examination was interpreted and the report reviewed and electronically signed by: ELISEO LYON MD on May 15 2021 10:08AM EST [facility] Radiology Study observation (narrative) [facility] [facility] XR Chest PA and LateralOrder ed By: Ccf Provider on 05-15-2021 [facility] Anaerobic culture Bacteria identified Anaer cx Nom (Unsp spec) No anaerobic bacteria isolated. [facility] Work Phone: [phone] Bacteria identified Anaer cx Nom (Unsp spec) Anaerobic microbial culture No anaerobic bacteria isolated. [facility] Work Phone: Bacteria identified Cx Nom ( Wound) Wound Culture Meth. resistant Stap h. aureus [facility] Work Phone: Wound Culture Streptococcus agalactiae (B) [facility] Work Phone: COVID-19 virus antigen assay SARS-CoV-2 (COVID-19) Ag IA.rapid Ql (Resp) [facility] Work Phone: Culture, urine Bacteria identified Cx Nom (U) Culture exhibits no growth. [facility] Work Phone: [phone] Gram stain for investigation of transfusion reaction Microscopic observation Gram stain Nom (Unsp spec) [facility] Work Phone: Laboratory - Microbiology an d Antimicrobial susceptibility Bacteria identified Cx Nom (Bld) No growth in 5 days. [facility] Work Phone: Routine wound culture Bacteria identified Cx Nom (Wound) No growth aerobically. [facility] Work Phone: Vital Signs Date Time Vital Sign Value Performing Clinician Facility 12-13-2024 08:30-0400 Body height 167.64 cm Amy Solorzano SURFACE GRINDER TENDER-C Work Phone: [facility] 12-13-2024 08:30-0400 Body mass index (BMI) [Ratio] 39.2 kg/m2 Amy Solorzano SURFACE GRINDER TENDER-C Work Phone: 3(232)279-919519 [place] [address] 12-13-2024 08:30-0400 Body weight 110.22 kg Amy Solorzano SURFACE GRINDER TENDER-C Work Phone: 2(724)291-311219 [place] [address] 12-13-2024 08:30-0400 Diastolic blood pressure 97 mm[Hg] Amy Solorzano SURFACE GRINDER TENDER-C Work Phone: 6(471)994-111419 [place] [address] 12-13-2024 08:30-0400 Heart rate 93 /min Amy Solorzano SURFACE GRINDER TENDER-C Work Phone: 0(017)844-134919 [place] [address] 12-13-2024 08:30-0400 Respiratory rate 19 /min Amy Solorzano SURFACE GRINDER TENDER-C Work Phone: 8(241)964-605119 [place] [address] 12-13-2024 08:30-0400 SaO2% (BldA) [Mass fraction] 97 % Amy Solorzano SURFACE GRINDER TENDER-C Work Phone: [facility] 12-13-2024 08:30-0400 Systolic blood pressure 138 mm[Hg] Amy Solorzano SURFACE GRINDER TENDER-C Work Phone: [facility] 11-28-2024 13:00-0400 Body temperature 98 [degF] Amy Solorzano SURFACE GRINDER TENDER-C Work Phone: [facility] 11-28-2024 13:00-0400 Diastolic blood pressure 96 mm[Hg] Amy Solorzano SURFACE GRINDER TENDER-C Work Phone: 1(304)572-251512 [place] [address] 11-28-2024 13:00-0400 Heart rate 60 /min Amy Solorzano SURFACE GRINDER TENDER-C Work Phone: 2(648)136-083012 [place] [address] 11-28-2024 13:00-0400 SaO2% (BldA) [Mass fraction] 99 % Amy Solorzano SURFACE GRINDER TENDER-C Work Phone: 9(106)914-280112 [place] [address] 11-28-2024 13:00-0400 Systolic blood pressure 156 mm[Hg] Amy Solorzano SURFACE GRINDER TENDER-C Work Phone: 6(421)084-774312 [place] [address] 11-28-2024 08:25-0400 Body temperature 98.1 [degF] Amy Solorzano SURFACE GRINDER TENDER-C Work Phone: 9(969)217-360412 [place] [address] 11-28-2024 08:25-0400 Diastolic blood pressure 84 mm[Hg] Amy Solorzano SURFACE GRINDER TENDER-C Work Phone: 5(323)965-665512 [place] [address] 11-28-2024 08:25-0400 Heart rate 75 /min Amy Solorzano SURFACE GRINDER TENDER-C Work Phone: 2(079)087-423012 [place] [address] 11-28-2024 08:25-0400 Respiratory rate 18 /min Amy Solorzano SURFACE GRINDER TENDER-C Work Phone: 7(935)073-682712 [place] [address] 11-28-2024 08:25-0400 SaO2% (BldA) [Mass fraction] 97 % Amy Solorzano SURFACE GRINDER TENDER-C Work Phone: 7(769)201-815312 [place] [address] 11-28-2024 08:25-0400 Systolic blood pressure 154 mm[Hg] Amy Solorzano SURFACE GRINDER TENDER-C Work Phone: 9(658)138-942812 [place] [address] 11-27-2024 13:47-0400 Body height 167.64 cm Amy Solorzano SURFACE GRINDER TENDER-C Work Phone: 7(826)780-725912 [place] [address] 11-27-2024 13:47-0400 Body weight 110.7 kg Amy Solorzano SURFACE GRINDER TENDER-C Work Phone: 4(520)764-952712 [place] [address] 11-25-2024 14:54-0400 Body mass index (BMI) [Ratio] 39.4 kg/m2 Amy Solorzano SURFACE GRINDER TENDER-C Work Phone: 9(476)102-026112 [place] [address] 11-25-2024 14:00-0400 Diastolic blood pressure 91 mm[Hg] Amykeiko oSlorzano SURFACE GRINDER TENDER-C Work Phone: [facility] 11-25-2024 14:00-0400 Heart rate 91 /min Amy Rashad SURFACE GRINDER TENDER-C Work Phone: [facility] 11-25-2024 14:00-0400 Respiratory rate 18 /min Amykeiko Solorzano SURFACE GRINDER TENDER-C Work Phone: [facility] 11-25-2024 14:00-0400 SaO2% (BldA) [Mass fraction] 95 % Amy Rashad SURFACE GRINDER TENDER-C Work Phone: 1(990)308-323819 [place] [address] 11-25-2024 14:00-0400 Systolic blood pressure 129 mm[Hg] Amykeiko Solorzano SURFACE GRINDER TENDER-C Work Phone: [facility] 11-25-2024 11:00-0400 Body temperature 97.6 [degF] Amy Solorzano SURFACE GRINDER TENDER-C Work Phone: 2(481)961-036219 [place] [address] 11-25-2024 08:48-0400 Body height 167.64 cm Amykeiko Solorzano SURFACE GRINDER TENDER-C Work Phone: 0(154)546-724019 [place] [address] 11-25-2024 08:48-0400 Body mass index (BMI) [Ratio] 40.9 kg/m2 Amykeiko Solorzano SURFACE GRINDER TENDER-C Work Phone: 1(721)950-486019 [place] [address] 11-25-2024 08:48-0400 Body weight 115.03 kg Amy Solorzano SURFACE GRINDER TENDER-C Work Phone: 1(307)449-619219 [place] [address] 07-03-2024 12:26-0500 Body mass index (BMI) [Ratio] 40.02 kg/m2 Vinnielydesirae Aberegg PA Work Phone: [facility] 07-03-2024 12:26-0500 Body temperature 97 [degF] Krislyn Aberegg PA Work Phone: [facility] 07-03-2024 12:26-0500 Body weight 115.9 kg Krislyn Aberegg PA Work Phone: [facility] 07-03-2024 12:26-0500 Diastolic blood pressure 90 mm[Hg] Krislyn Aberegg PA Work Phone: [facility] 07-03-2024 12:26-0500 Heart rate 104 /min Krislyn Aberegg PA Work Phone: [facility] 07-03-2024 12:26-0500 Respiratory rate 16 /min Krislyn Aberegg PA Work Phone: [facility] 07-03-2024 12:26-0500 SaO2% (BldA) [Mass fraction] 100 % Krislyn Aberegg PA Work Phone: [facility] 07-03-2024 12:26-0500 Systolic blood pressure 122 mm[Hg] Krislyn Aberegg PA Work Phone: [facility] 06-26-2024 10:36-0500 Body mass index (BMI) [Ratio] 39.95 kg/m2 Frantz Clutter PA-C Work Phone: [facility] 06-26-2024 10:36-0500 Body temperature 97.39 [degF] Frantz Clutter PA-C Work Phone: [facility] 06-26-2024 10:36-0500 Body weight 115.7 kg Frantz Clutter PA-C Work Phone: [facility] 06-26-2024 10:36-0500 Diastolic blood pressure 78 mm[Hg] Frantz Clutter PA-C Work Phone: [facility] 06-26-2024 10:36-0500 Heart rate 117 /min Frantz Clutter PA-C Work Phone: [facility] 06-26-2024 10:36-0500 Respiratory rate 18 /min Frantz Clutter PA-C Work Phone: [facility] 06-26-2024 10:36-0500 SaO2% (BldA) [Mass fraction] 97 % Frantz Clutter PA-C Work Phone: [facility] 06-26-2024 10:36-0500 Systolic blood pressure 122 mm[Hg] Frantz Arevalo PA-C Work Phone: [facility] 07-23-2023 11:30-0500 Body temperature 96.9 [degF] No Primary Care Physician [facility] 07-23-2023 11:30-0500 Diastolic blood pressure 82 mm[Hg] No Primary Care Physician [facility] 07-23-2023 11:30-0500 Heart rate 80 /min No Primary Care Physician [facility] 07-23-2023 11:30-0500 Respiratory rate 16 /min No Primary Care Physician [facility] 07-23-2023 11:30-0500 SaO2% (BldA) [Mass fraction] 99 % No Primary Care Physician [facility] 07-23-2023 11:30-0500 Systolic blood pressure 117 mm[Hg] No Primary Care Physician [facility] 07-23-2023 11:05-0500 Inhaled oxygen flow rate 4 L/min No Primary Care Physician [facility] 07-23-2023 08:34-0500 Body height 167.64 cm No Primary Care Physician [facility] 07-23-2023 08:34-0500 Body mass index (BMI) [Ratio] 32.5 kg/m2 No Primary Care Physician [facility] 07-23-2023 08:34-0500 Body weight 91.62 kg No Primary Care Physician [facility] 07-12-2023 10:13-0500 Body mass index (BMI) [Ratio] 32.1 kg/m2 No Primary Care Physician [facility] 07-12-2023 10:13-0500 Body temperature 98.2 [degF] No Primary Care Physician [facility] 07-12-2023 10:13-0500 Body weight 90.4 kg No Primary Care Physician [facility] 07-12-2023 10:13-0500 Diastolic blood pressure 90 mm[Hg] No Primary Care Physician [facility] 07-12-2023 10:13-0500 Heart rate 98 /min No Primary Care Physician [facility] 07-12-2023 10:13-0500 Respiratory rate 14 /min No Primary Care Physician [facility] 07-12-2023 10:13-0500 SaO2% (BldA) [Mass fraction] 100 % No Primary Care Physician [facility] 07-12-2023 10:13-0500 Systolic blood pressure 124 mm[Hg] No Primary Care Physician [facility] 07-02-2023 09:17-0500 Diastolic blood pressure 94 mm[Hg] No Primary Care Physician [facility] 07-02-2023 09:17-0500 Systolic blood pressure 142 mm[Hg] No Primary Care Physician [facility] 07-02-2023 09:14-0500 Body height 167.64 cm No Primary Care Physician [facility] 07-02-2023 09:14-0500 Body temperature 96.4 [degF] No Primary Care Physician [facility] 07-02-2023 09:14-0500 Heart rate 100 /min No Primary Care Physician [facility] 07-02-2023 09:14-0500 Respiratory rate 16 /min No Primary Care Physician [facility] 07-02-2023 09:14-0500 SaO2% (BldA) [Mass fraction] 100 % No Primary Care Physician [facility] 07-01-2023 10:07-0500 Body temperature 97 [degF] Andres Galaviz RESIDENTIAL GLAZIER.PUBLIC TRANSPORTATION INSPECTOR Work Phone: [facility] 07-01-2023 10:07-0500 Body weight 93.44 kg Andres Galaviz RESIDENTIAL GLAZIER.PUBLIC TRANSPORTATION INSPECTOR Work Phone: [facility] 07-01-2023 10:07-0500 Diastolic blood pressure 82 mm[Hg] Andres Galaviz RESIDENTIAL GLAZIER.PUBLIC TRANSPORTATION INSPECTOR Work Phone: [facility] 07-01-2023 10:07-0500 Heart rate 91 /min Andres Galaviz RESIDENTIAL GLAZIER.PUBLIC TRANSPORTATION INSPECTOR Work Phone: [facility] 07-01-2023 10:07-0500 Respiratory rate 18 /min Andres Galaviz RESIDENTIAL GLAZIER.PUBLIC TRANSPORTATION INSPECTOR Work Phone: [facility] 07-01-2023 10:07-0500 SaO2% (BldA) [Mass fraction] 100 % Andres Galaviz RESIDENTIAL GLAZIER.PUBLIC TRANSPORTATION INSPECTOR Work Phone: [facility] 07-01-2023 10:07-0500 Systolic blood pressure 117 mm[Hg] Andres Lopezjosé lius MARTINEZPUBLIC TRANSPORTATION INSPECTOR Work Phone: [facility] 06-30-2023 13:41-0500 Heart rate 72 /min No Primary Care Physician [facility] 06-30-2023 13:41-0500 Respiratory rate 16 /min No Primary Care Physician [facility] 06-30-2023 13:41-0500 SaO2% (BldA) [Mass fraction] 98 % No Primary Care Physician [facility] 06-30-2023 09:24-0500 Body mass index (BMI) [Ratio] 34 kg/m2 No Primary Care Physician [facility] 06-30-2023 09:24-0500 Body weight 95.7 kg No Primary Care Physician [facility] 06-30-2023 08:22-0500 Body temperature 98 [degF] No Primary Care Physician [facility] 06-30-2023 08:22-0500 Diastolic blood pressure 110 mm[Hg] No Primary Care Physician [facility] 06-30-2023 08:22-0500 Systolic blood pressure 170 mm[Hg] No Primary Care Physician [facility] 06-28-2023 09:17-0500 Body height 167.64 cm No Primary Care Physician [facility] 06-28-2023 09:17-0500 Body mass index (BMI) [Ratio] 33.6 kg/m2 No Primary Care Physician [facility] 06-28-2023 09:17-0500 Body temperature 98.2 [degF] No Primary Care Physician [facility] 06-28-2023 09:17-0500 Body weight 94.5 kg No Primary Care Physician [facility] 06-28-2023 09:17-0500 Diastolic blood pressure 105 mm[Hg] No Primary Care Physician [facility] 06-28-2023 09:17-0500 Heart rate 82 /min No Primary Care Physician [facility] 06-28-2023 09:17-0500 Respiratory rate 14 /min No Primary Care Physician [facility] 06-28-2023 09:17-0500 SaO2% (BldA) [Mass fraction] 99 % No Primary Care Physician [facility] 06-28-2023 09:17-0500 Systolic blood pressure 154 mm[Hg] No Primary Care Physician [facility] 06-27-2023 05:50-0500 Body height 167.64 cm No Primary Care Physician [facility] 06-27-2023 05:50-0500 Body mass index (BMI) [Ratio] 34 kg/m2 No Primary Care Physician [facility] 06-27-2023 05:50-0500 Body temperature 98.6 [degF] No Primary Care Physician [facility] 06-27-2023 05:50-0500 Body weight 95.7 kg No Primary Care Physician [facility] 06-27-2023 05:50-0500 Diastolic blood pressure 98 mm[Hg] No Primary Care Physician [facility] 06-27-2023 05:50-0500 Heart rate 85 /min No Primary Care Physician [facility] 06-27-2023 05:50-0500 Respiratory rate 16 /min No Primary Care Physician [facility] 06-27-2023 05:50-0500 SaO2% (BldA) [Mass fraction] 99 % No Primary Care Physician [facility] 06-27-2023 05:50-0500 Systolic blood pressure 163 mm[Hg] No Primary Care Physician [facility] 06-26-2023 17:04-0500 Heart rate 74 /min No Primary Care Physician [facility] 06-26-2023 17:04-0500 Respiratory rate 18 /min No Primary Care Physician [facility] 06-26-2023 17:04-0500 SaO2% (BldA) [Mass fraction] 97 % No Primary Care Physician [facility] 06-26-2023 11:30-0500 Body height 167.64 cm No Primary Care Physician [facility] 06-26-2023 11:30-0500 Body mass index (BMI) [Ratio] 34.1 kg/m2 No Primary Care Physician [facility] 06-26-2023 11:30-0500 Body temperature 97 [degF] No Primary Care Physician [facility] 06-26-2023 11:30-0500 Body weight 95.98 kg No Primary Care Physician [facility] 06-26-2023 11:30-0500 Diastolic blood pressure 120 mm[Hg] No Primary Care Physician [facility] 06-26-2023 11:30-0500 Systolic blood pressure 135 mm[Hg] No Primary Care Physician [facility] 06-25-2023 12:33-0500 Diastolic blood pressure 69 mm[Hg] No Primary Care Physician [facility] 06-25-2023 12:33-0500 Heart rate 82 /min No Primary Care Physician [facility] 06-25-2023 12:33-0500 Respiratory rate 16 /min No Primary Care Physician [facility] 06-25-2023 12:33-0500 SaO2% (BldA) [Mass fraction] 100 % No Primary Care Physician [facility] 06-25-2023 12:33-0500 Systolic blood pressure 124 mm[Hg] No Primary Care Physician [facility] 06-25-2023 09:27-0500 Body height 168 cm No Primary Care Physician [facility] 06-25-2023 09:27-0500 Body mass index (BMI) [Ratio] 32.1 kg/m2 No Primary Care Physician [facility] 06-25-2023 09:27-0500 Body temperature 96.5 [degF] No Primary Care Physician [facility] 06-25-2023 09:27-0500 Body weight 90.71 kg No Primary Care Physician [facility] 05-09-2023 14:02-0400 Body temperature 98.4 [degF] No Primary Care Physician [facility] 05-09-2023 14:02-0400 Diastolic blood pressure 102 mm[Hg] No Primary Care Physician [facility] 05-09-2023 14:02-0400 Heart rate 74 /min No Primary Care Physician [facility] 05-09-2023 14:02-0400 Respiratory rate 18 /min No Primary Care Physician [facility] 05-09-2023 14:02-0400 SaO2% (BldA) [Mass fraction] 100 % No Primary Care Physician [facility] 05-09-2023 14:02-0400 Systolic blood pressure 177 mm[Hg] No Primary Care Physician [facility] 05-09-2023 13:32-0400 Body temperature 98.4 [degF] [facility] Work Phone: [facility] 05-09-2023 13:32-0400 Diastolic blood pressure 121 mm[Hg] [facility] Work Phone: 7(008)058-701312 [place] [address] 05-09-2023 13:32-0400 Heart rate 74 /min [facility] Work Phone: 7(089)325-114012 [place] [address] 05-09-2023 13:32-0400 Respiratory rate 18 /min [facility] Work Phone: 4(869)435-376712 [place] [address] 05-09-2023 13:32-0400 SaO2% (BldA) [Mass fraction] 100 % [facility] Work Phone: 8(334)998-901612 [place] [address] 05-09-2023 13:32-0400 Systolic blood pressure 177 mm[Hg] [facility] Work Phone: 3(307)993-781912 [place] [address] 05-07-2023 11:35-0400 Body height 167.64 cm [facility] Work Phone: 1(194)617-377212 [place] [address] 05-07-2023 11:35-0400 Body mass index (BMI) [Ratio] 33.5 kg/m2 [facility] Work Phone: 7(523)511-293012 [place] [address] 05-07-2023 11:35-0400 Body weight 94.2 kg [facility] Work Phone: 9(831)431-608812 [place] [address] 05-04-2023 15:23-0400 Body height 167.64 cm [facility] Work Phone: 0(759)323-710112 [place] [address] 05-04-2023 15:23-0400 Body mass index (BMI) [Ratio] 33.5 kg/m2 [facility] Work Phone: 0(123)516-969312 [place] [address] 05-04-2023 15:23-0400 Body temperature 97.4 [degF] [facility] Work Phone: 8(312)514-683312 [place] [address] 05-04-2023 15:23-0400 Body weight 94.2 kg [facility] Work Phone: 7(137)785-539612 [place] [address] 05-04-2023 15:23-0400 Diastolic blood pressure 69 mm[Hg] [facility] Work Phone: 1(533)039-849512 [place] [address] 05-04-2023 15:23-0400 Heart rate 84 /min [facility] Work Phone: 6(905)260-461812 [place] [address] 05-04-2023 15:23-0400 Inhaled oxygen flow rate 96 L/min [facility] Work Phone: 7(160)023-404212 [place] [address] 05-04-2023 15:23-0400 Respiratory rate 16 /min [facility] Work Phone: 8(042)638-433212 [place] [address] 05-04-2023 15:23-0400 Systolic blood pressure 134 mm[Hg] [facility] Work Phone: 2(051)805-041912 [place] [address] 05-04-2023 14:51-0400 SaO2% (BldA) [Mass fraction] 97 % [facility] Work Phone: 5(952)221-805912 [place] [address] 04-15-2023 13:43-0400 Diastolic blood pressure 58 mm[Hg] [facility] Work Phone: 2(690)640-698812 [place] [address] 04-15-2023 13:43-0400 Heart rate 72 /min [facility] Work Phone: 3(333)505-283012 [place] [address] 04-15-2023 13:43-0400 Respiratory rate 16 /min [facility] Work Phone: 0(242)374-358712 [place] [address] 04-15-2023 13:43-0400 SaO2% (BldA) [Mass fraction] 99 % [facility] Work Phone: 9(193)549-102912 [place] [address] 04-15-2023 13:43-0400 Systolic blood pressure 122 mm[Hg] [facility] Work Phone: 5(718)110-420112 [place] [address] 04-15-2023 11:17-0400 Body mass index (BMI) [Ratio] 29.3 kg/m2 [facility] Work Phone: 2(388)595-932212 [place] [address] 04-15-2023 11:17-0400 Body temperature 97 [degF] [facility] Work Phone: 5(347)084-029112 [place] [address] 04-15-2023 11:17-0400 Body weight 82.4 kg [facility] Work Phone: 4(675)209-852212 [place] [address] 04-14-2023 11:51-0400 Body mass index (BMI) [Ratio] 32.3 kg/m2 [facility] Work Phone: 0(981)168-249512 [place] [address] 04-14-2023 11:51-0400 Body temperature 97.2 [degF] [facility] Work Phone: 6(231)068-439412 [place] [address] 04-14-2023 11:51-0400 Body weight 90.71 kg [facility] Work Phone: 9(671)933-569012 [place] [address] 04-14-2023 11:51-0400 Diastolic blood pressure 92 mm[Hg] [facility] Work Phone: 1(222)111-717512 [place] [address] 04-14-2023 11:51-0400 Heart rate 102 /min [facility] Work Phone: 0(277)851-037812 [place] [address] 04-14-2023 11:51-0400 Respiratory rate 24 /min [facility] Work Phone: 6(289)428-726212 [place] [address] 04-14-2023 11:51-0400 SaO2% (BldA) [Mass fraction] 100 % [facility] Work Phone: 3(897)657-856412 [place] [address] 04-14-2023 11:51-0400 Systolic blood pressure 131 mm[Hg] [facility] Work Phone: 5(702)945-327512 [place] [address] 04-13-2023 10:36-0400 Diastolic blood pressure 78 mm[Hg] [facility] Work Phone: 9(265)100-551012 [place] [address] 04-13-2023 10:36-0400 Heart rate 64 /min [facility] Work Phone: 3(610)074-329512 [place] [address] 04-13-2023 10:36-0400 Respiratory rate 14 /min [facility] Work Phone: 1(841)430-964712 [place] [address] 04-13-2023 10:36-0400 SaO2% (BldA) [Mass fraction] 98 % [facility] Work Phone: 9(982)408-350312 [place] [address] 04-13-2023 10:36-0400 Systolic blood pressure 108 mm[Hg] [facility] Work Phone: 0(215)976-449312 [place] [address] 04-13-2023 08:59-0400 Body mass index (BMI) [Ratio] 32.3 kg/m2 [facility] Work Phone: 7(413)523-630512 [place] [address] 04-13-2023 08:59-0400 Body temperature 95.9 [degF] [facility] Work Phone: 6(761)285-165012 [place] [address] 04-13-2023 08:59-0400 Body weight 90.71 kg [facility] Work Phone: 2(350)768-285112 [place] [address] 03-06-2023 08:15-0400 Body height 167.64 cm [facility] Work Phone: 6(612)764-890112 [place] [address] 03-06-2023 08:15-0400 Body mass index (BMI) [Ratio] 32.5 kg/m2 [facility] Work Phone: 4(972)452-224312 [place] [address] 03-06-2023 08:15-0400 Body temperature 97 [degF] [facility] Work Phone: 3(683)937-456112 [place] [address] 03-06-2023 08:15-0400 Body weight 91.3 kg [facility] Work Phone: 0(544)736-005712 [place] [address] 03-06-2023 08:15-0400 Diastolic blood pressure 113 mm[Hg] [facility] Work Phone: 9(999)048-465712 [place] [address] 03-06-2023 08:15-0400 Heart rate 100 /min [facility] Work Phone: 1(814)091-415712 [place] [address] 03-06-2023 08:15-0400 Respiratory rate 14 /min [facility] [facility] Work Phone: 7(808)584-420012 [place] [address] 03-06-2023 08:15-0400 SaO2% (BldA) [Mass fraction] 100 % [facility] Work Phone: 7(357)627-761812 [place] [address] 03-06-2023 08:15-0400 Systolic blood pressure 153 mm[Hg] [facility] Work Phone: 1(928)900-409012 [place] [address] 03-01-2023 10:40-0400 Body height 170.2 cm Dewayne Doran MD Work Phone: [facility] 03-01-2023 10:40-0400 Body temperature 98.2 [degF] Dewayne Doran MD Work Phone: [facility] 03-01-2023 10:40-0400 Body weight 90.1 kg Dewayne Doran MD Work Phone: [facility] 03-01-2023 10:40-0400 Diastolic blood pressure 87 mm[Hg] Dewayne Doran MD Work Phone: [facility] 03-01-2023 10:40-0400 Heart rate 109 /min Dewayne Doran MD Work Phone: [facility] 03-01-2023 10:40-0400 SaO2% (BldA) [Mass fraction] 97 % Dewayne Doran MD Work Phone: [facility] 03-01-2023 10:40-0400 Systolic blood pressure 119 mm[Hg] Dewayne Doran MD Work Phone: [facility] 02-26-2023 03:54-0400 Diastolic blood pressure 63 mm[Hg] [facility] Work Phone: 3(539)811-669019 [place] [address] 02-26-2023 03:54-0400 Heart rate 68 /min [facility] Work Phone: 4(163)028-503749 [address] 02-26-2023 03:54-0400 Respiratory rate 15 /min [facility] Work Phone: 2(850)278-830719 [place] [address] 02-26-2023 03:54-0400 SaO2% (BldA) [Mass fraction] 97 % [facility] Work Phone: 5(694)630-034419 [place] [address] 02-26-2023 03:54-0400 Systolic blood pressure 107 mm[Hg] [facility] Work Phone: 6(143)387-033519 [place] [address] 02-25-2023 23:59-0400 Body height 167.64 cm [facility] Work Phone: 4(744)982-797449 [address] 02-25-2023 23:59-0400 Body mass index (BMI) [Ratio] 31.8 kg/m2 [facility] Work Phone: 9(598)493-684319 [place] [address] 02-25-2023 23:59-0400 Body temperature 98 [degF] [facility] Work Phone: 4(015)077-048912 [place] [address] 02-25-2023 23:59-0400 Body weight 89.44 kg [facility] Work Phone: 6(137)817-018712 [place] [address] 02-24-2023 12:55-0400 Diastolic blood pressure 93 mm[Hg] [facility] Work Phone: 2(651)495-524012 [place] [address] 02-24-2023 12:55-0400 Heart rate 85 /min [facility] Work Phone: 0(021)678-521112 [place] [address] 02-24-2023 12:55-0400 Respiratory rate 18 /min [facility] Work Phone: 0(314)341-435012 [place] [address] 02-24-2023 12:55-0400 SaO2% (BldA) [Mass fraction] 96 % [facility] Work Phone: 3(030)346-467912 [place] [address] 02-24-2023 12:55-0400 Systolic blood pressure 124 mm[Hg] [facility] Work Phone: 3(708)744-198612 [place] [address] 02-24-2023 11:32-0400 Body mass index (BMI) [Ratio] 32.4 kg/m2 [facility] Work Phone: 4(870)425-618212 [place] [address] 02-24-2023 11:32-0400 Body temperature 97.8 [degF] [facility] Work Phone: 3(287)698-725212 [place] [address] 02-24-2023 11:32-0400 Body weight 91.22 kg [facility] Work Phone: 0(693)293-294212 [place] [address] 02-23-2023 09:59-0400 Body temperature 97.11 [degF] Pilar Magdaleno APRN.PUBLIC TRANSPORTATION INSPECTOR Work Phone: [facility] 02-23-2023 09:59-0400 Body weight 91.17 kg Pilar Magdaleno APRN.PUBLIC TRANSPORTATION INSPECTOR Work Phone: [facility] 02-23-2023 09:59-0400 Diastolic blood pressure 74 mm[Hg] Pilar Magdaleno APRN.CNP Work Phone: [facility] 02-23-2023 09:59-0400 Heart rate 88 /min Pilar Magdaleno APRN.PUBLIC TRANSPORTATION INSPECTOR Work Phone: [facility] 02-23-2023 09:59-0400 Respiratory rate 16 /min Pilar Rasta RESIDENTIAL GLAZIER.PUBLIC TRANSPORTATION INSPECTOR Work Phone: [facility] 02-23-2023 09:59-0400 Systolic blood pressure 118 mm[Hg] Pilar Rasta DARLINGN.PUBLIC TRANSPORTATION INSPECTOR Work Phone: [facility] 02-11-2023 15:17-0400 Body temperature 97.88 [degF] HELENA SILVERMAN RESIDENTIAL GLAZIER-PUBLIC TRANSPORTATION INSPECTOR [facility] 02-11-2023 15:17-0400 Diastolic Blood Pressure Non-Invasive 86 1 HELENA SILVERMAN RESIDENTIAL GLAZIER-PUBLIC TRANSPORTATION INSPECTOR [facility] 02-11-2023 15:17-0400 Heart rate 67 /min HELENA SILVERMAN RESIDENTIAL GLAZIER-PUBLIC TRANSPORTATION INSPECTOR [facility] 02-11-2023 15:17-0400 Reason For Taking VItal Signs HELENA SILVERMAN RESIDENTIAL GLAZIER-PUBLIC TRANSPORTATION INSPECTOR [facility] 02-11-2023 15:17-0400 Systolic Blood Pressure Non-Invasive 137 1 HELENA SILVERMAN RESIDENTIAL GLAZIER-PUBLIC TRANSPORTATION INSPECTOR [facility] 02-11-2023 11:58-0400 Body temperature 97.7 [degF] HELENA SILVERMAN RESIDENTIAL GLAZIER-PUBLIC TRANSPORTATION INSPECTOR [facility] 02-11-2023 11:58-0400 Diastolic Blood Pressure Non-Invasive 94 1 HELENA SILVERMAN RESIDENTIAL GLAZIER-PUBLIC TRANSPORTATION INSPECTOR [facility] 02-11-2023 11:58-0400 Heart rate 68 /min HELENA SILVERMAN RESIDENTIAL GLAZIER-PUBLIC TRANSPORTATION INSPECTOR [facility] 02-11-2023 11:58-0400 Reason For Taking VItal Signs HELENA FOITH RESIDENTIAL GLAZIER-PUBLIC TRANSPORTATION INSPECTOR [facility] 02-11-2023 11:58-0400 Respiratory rate 18 /min HELENA SILVERMAN RESIDENTIAL GLAZIER-PUBLIC TRANSPORTATION INSPECTOR [facility] 02-11-2023 11:58-0400 Systolic Blood Pressure Non-Invasive 138 1 HELENA SILVERMAN RESIDENTIAL GLAZIER-PUBLIC TRANSPORTATION INSPECTOR [facility] 02-11-2023 07:52-0400 Body temperature 98.06 [degF] HELENA HERRERA RESIDENTIAL GLAZIER-PUBLIC TRANSPORTATION INSPECTOR [facility] 02-11-2023 07:52-0400 Diastolic Blood Pressure Non-Invasive 82 1 HELENA SILVERMAN RESIDENTIAL GLAZIER-PUBLIC TRANSPORTATION INSPECTOR [facility] 02-11-2023 07:52-0400 Heart rate 75 /min HELENA SILVERMAN RESIDENTIAL GLAZIER-PUBLIC TRANSPORTATION INSPECTOR [facility] 02-11-2023 07:52-0400 Reason For Taking VItal Signs HELENA SILVERMAN RESIDENTIAL GLAZIER-PUBLIC TRANSPORTATION INSPECTOR [facility] 02-11-2023 07:52-0400 Respiratory rate 18 /min HELENA SILVERMAN RESIDENTIAL GLAZIER-PUBLIC TRANSPORTATION INSPECTOR [facility] 02-11-2023 07:52-0400 Systolic Blood Pressure Non-Invasive 127 1 HELENA HERRERA RESIDENTIAL GLAZIER-PUBLIC TRANSPORTATION INSPECTOR [facility] 02-11-2023 05:25-0400 Respiratory rate 18 /min HELENA SILVERMAN RESIDENTIAL GLAZIER-PUBLIC TRANSPORTATION INSPECTOR [facility] 02-11-2023 01:49-0400 Body height 169.9 cm HELENA SILVERMAN RESIDENTIAL GLAZIER-PUBLIC TRANSPORTATION INSPECTOR [facility] 08-03-2023 01:49-0400 Body weight 94.4 kg HELENA HERRERA RESIDENTIAL GLAZIER-PUBLIC TRANSPORTATION INSPECTOR [facility] 02-11-2023 01:49-0400 Body weight 32.7 kg/m2 HELENA HERRERA RESIDENTIAL GLAZIER-PUBLIC TRANSPORTATION INSPECTOR [facility] 02-10-2023 23:34-0400 Blood Pressure Cuff Size HELENA HERRERA DARLINGN-PUBLIC TRANSPORTATION INSPECTOR [facility] 02-10-2023 23:34-0400 Blood Pressure Location HELENA HERRERA RESIDENTIAL GLAZIER-PUBLIC TRANSPORTATION INSPECTOR [facility] 02-10-2023 23:34-0400 Blood Pressure Method HELENA HERRERA DARLINGN-PUBLIC TRANSPORTATION INSPECTOR [facility] 02-10-2023 23:34-0400 Body height 167.6 cm HELENA HERRERA RESIDENTIAL GLAZIER-PUBLIC TRANSPORTATION INSPECTOR [facility] 02-10-2023 23:34-0400 Body temperature 98.24 [degF] HELENA HERRERA RESIDENTIAL GLAZIER-PUBLIC TRANSPORTATION INSPECTOR [facility] 02-10-2023 23:34-0400 Body weight 97.7 kg HELENA HERRERA RESIDENTIAL GLAZIER-PUBLIC TRANSPORTATION INSPECTOR [facility] 02-10-2023 23:34-0400 Heart rate 90 /min HELENA HERRERA RESIDENTIAL GLAZIER-PUBLIC TRANSPORTATION INSPECTOR [facility] 02-08-2023 15:46-0400 Heart rate 97 /min [facility] Work Phone: [facility] 02-08-2023 15:46-0400 Respiratory rate 21 /min [facility] Work Phone: [facility] 02-08-2023 15:46-0400 SaO2% (BldA) [Mass fraction] 96 % [facility] Work Phone: 9(702)080-099112 [place] [address] 02-08-2023 11:06-0400 Body height 167.64 cm [facility] Work Phone: 7(409)602-682412 [place] [address] 02-08-2023 11:06-0400 Body mass index (BMI) [Ratio] 34 kg/m2 [facility] Work Phone: 8(389)765-752912 [place] [address] 02-08-2023 11:06-0400 Body temperature 96 [degF] [facility] Work Phone: 4(378)811-677512 [place] [address] 02-08-2023 11:06-0400 Body weight 95.52 kg [facility] Work Phone: 6(581)097-256512 [place] [address] 02-08-2023 11:06-0400 Diastolic blood pressure 90 mm[Hg] [facility] Work Phone: 7(002)109-007712 [place] [address] 02-08-2023 11:06-0400 Systolic blood pressure 149 mm[Hg] [facility] Work Phone: 1(895)281-151512 [place] [address] 01-25-2023 11:35-0400 Body height 167.64 cm [facility] Work Phone: 4(650)345-070912 [place] [address] 01-25-2023 11:35-0400 Body mass index (BMI) [Ratio] 35.2 kg/m2 [facility] Work Phone: 0(776)979-050812 [place] [address] 01-25-2023 11:35-0400 Body temperature 96 [degF] [facility] Work Phone: 4(955)898-816612 [place] [address] 01-25-2023 11:35-0400 Body weight 98.8 kg [facility] Work Phone: 0(251)448-849512 [place] [address] 01-25-2023 11:35-0400 Diastolic blood pressure 87 mm[Hg] [facility] Work Phone: 2(635)751-407612 [place] [address] 01-25-2023 11:35-0400 Heart rate 86 /min [facility] Work Phone: 4(972)898-077612 [place] [address] 01-25-2023 11:35-0400 Respiratory rate 14 /min [facility] Work Phone: 8(150)752-835012 [place] [address] 01-25-2023 11:35-0400 SaO2% (BldA) [Mass fraction] 100 % [facility] Work Phone: [facility] 01-25-2023 11:35-0400 Systolic blood pressure 123 mm[Hg] [facility] Work Phone: [facility] 01-24-2023 12:38-0400 Diastolic blood pressure 74 mm[Hg] Abdirizak Ramirez MD Work Phone: [facility] 01-24-2023 12:38-0400 Heart rate 70 /min Abdirizak Ramirez MD Work Phone: [facility] 01-24-2023 12:38-0400 SaO2% (BldA) [Mass fraction] 98 % Abdirizak Ramirez MD Work Phone: [facility] 01-24-2023 12:38-0400 Systolic blood pressure 129 mm[Hg] Abdirizak Ramirez MD Work Phone: [facility] 01-24-2023 12:09-0400 Respiratory rate 15 /min Abdirizak Ramirez MD Work Phone: [facility] 01-24-2023 10:28-0400 Body height 167.6 cm Abdirizak Ramirez MD Work Phone: [facility] 01-24-2023 10:28-0400 Body mass index (BMI) [Ratio] 37.12 kg/m2 Abdirizak Ramirez MD Work Phone: [facility] 01-24-2023 10:28-0400 Body temperature 97.3 [degF] Abdirizak Ramirez MD Work Phone: [facility] 01-24-2023 10:28-0400 Body weight 104.33 kg Abdirizak Ramirez MD Work Phone: [facility] 01-15-2023 15:08-0400 Body temperature 97.9 [degF] [facility] Work Phone: 1(474)296-403812 [place] [address] 01-15-2023 15:08-0400 Diastolic blood pressure 102 mm[Hg] [facility] Work Phone: 2(596)582-093812 [place] [address] 01-15-2023 15:08-0400 Heart rate 73 /min [facility] Work Phone: 6(663)464-443212 [place] [address] 01-15-2023 15:08-0400 Respiratory rate 16 /min [facility] Work Phone: 2(993)024-691312 [place] [address] 01-15-2023 15:08-0400 SaO2% (BldA) [Mass fraction] 97 % [facility] Work Phone: 7(772)238-602412 [place] [address] 01-15-2023 15:08-0400 Systolic blood pressure 168 mm[Hg] [facility] Work Phone: 7(858)995-258112 [place] [address] 01-15-2023 12:58-0400 Body height 167.64 cm [facility] Work Phone: 2(101)772-309812 [place] [address] 01-15-2023 12:58-0400 Body weight 104 kg [facility] Work Phone: 0(251)382-216812 [place] [address] 01-14-2023 16:21-0400 Body mass index (BMI) [Ratio] 37 kg/m2 [facility] Work Phone: 8(791)009-072612 [place] [address] 01-13-2023 10:20-0400 Respiratory rate 16 /min [facility] Work Phone: 0(311)126-920212 [place] [address] 01-13-2023 06:21-0400 Body mass index (BMI) [Ratio] 37.6 kg/m2 [facility] Work Phone: 1(598)879-624512 [place] [address] 01-13-2023 06:21-0400 Body temperature 97 [degF] [facility] Work Phone: 2(567)579-358612 [place] [address] 01-13-2023 06:21-0400 Body weight 105.9 kg [facility] Work Phone: 8(450)319-304512 [place] [address] 01-13-2023 06:21-0400 Diastolic blood pressure 106 mm[Hg] [facility] Work Phone: 9(850)346-806212 [place] [address] 01-13-2023 06:21-0400 Heart rate 99 /min [facility] Work Phone: [facility] 01-13-2023 06:21-0400 SaO2% (BldA) [Mass fraction] 99 % [facility] Work Phone: [facility] 01-13-2023 06:21-0400 Systolic blood pressure 169 mm[Hg] [facility] Work Phone: [facility] 01-12-2023 13:20-0400 Diastolic blood pressure 101 mm[Hg] [facility] 01-12-2023 13:20-0400 Heart rate 70 /min [facility] 01-12-2023 13:20-0400 Respiratory rate 14 /min [facility] 01-12-2023 13:20-0400 SaO2% (BldA) [Mass fraction] 98 % [facility] 01-12-2023 13:20-0400 Systolic blood pressure 143 mm[Hg] [facility] 01-12-2023 10:45-0400 Body height 167.64 cm [facility] 01-12-2023 10:45-0400 Body mass index (BMI) [Ratio] 37.6 kg/m2 [facility] 01-12-2023 10:45-0400 Body temperature 95.2 [degF] [facility] 01-12-2023 10:45-0400 Body weight 105.8 kg [facility] 01-12-2023 02:13-0400 Diastolic blood pressure 87 mm[Hg] [facility] 01-12-2023 02:13-0400 Heart rate 84 /min [facility] 01-12-2023 02:13-0400 Respiratory rate 18 /min [facility] 01-12-2023 02:13-0400 SaO2% (BldA) [Mass fraction] 99 % [facility] 01-12-2023 02:13-0400 Systolic blood pressure 141 mm[Hg] [facility] 01-11-2023 22:58-0400 Body height 167.64 cm [facility] 01-11-2023 22:58-0400 Body mass index (BMI) [Ratio] 33 kg/m2 [facility] 01-11-2023 22:58-0400 Body temperature 96.8 [degF] [facility] 01-11-2023 22:58-0400 Body weight 92.98 kg [facility] 01-10-2023 17:27-0400 Body temperature 98.78 [degF] ESSIE FROMGrovacT DO [facility] 01-10-2023 17:27-0400 Diastolic Blood Pressure Non-Invasive 80 1 ESSIE FROMGrovacT DO [facility] 01-10-2023 17:27-0400 Heart rate 78 /min ESSIE FROMMELT DO [facility] 01-10-2023 17:27-0400 Respiratory rate 16 /min ESSIE FROMGrovacT DO [facility] 01-10-2023 17:27-0400 Systolic Blood Pressure Non-Invasive 148 1 ESSIE WASHINGTONMELT DO [facility] 01-10-2023 16:16-0400 Body temperature 98.78 [degF] ESSIE FROMMELT DO [facility] 01-10-2023 15:43-0400 Diastolic Blood Pressure Non-Invasive 89 1 ESSIE FROMGrovacT DO [facility] 01-10-2023 15:43-0400 Heart rate 77 /min ESSIE FROMGrovacT DO [facility] 01-10-2023 15:43-0400 Respiratory rate 16 /min ESSIE FROMGrovacT DO [facility] 01-10-2023 15:43-0400 Systolic Blood Pressure Non-Invasive 144 1 ESSIE WASHINGTONGrovacT DO [facility] 01-10-2023 15:09-0400 Heart rate 74 /min ESSIE LAWLERNeosens [facility] 01-10-2023 14:32-0400 Respiratory rate 12 /min ESISE LAWLERNeosens [facility] 01-10-2023 13:47-0400 Body temperature 98.78 [degF] [facility] 01-10-2023 13:47-0400 Diastolic Blood Pressure Non-Invasive 92 1 [facility] 01-10-2023 13:47-0400 Systolic Blood Pressure Non-Invasive 158 1 [facility] 01-09-2023 15:21-0400 Diastolic blood pressure 70 mm[Hg] [facility] 01-09-2023 15:21-0400 Heart rate 84 /min [facility] 01-09-2023 15:21-0400 Respiratory rate 16 /min [facility] 01-09-2023 15:21-0400 SaO2% (BldA) [Mass fraction] 97 % [facility] 01-09-2023 15:21-0400 Systolic blood pressure 139 mm[Hg] [facility] 01-09-2023 11:53-0400 Body height 167.64 cm [facility] 01-09-2023 11:53-0400 Body mass index (BMI) [Ratio] 41.1 kg/m2 [facility] 01-09-2023 11:53-0400 Body temperature 98.2 [degF] [facility] 01-09-2023 11:53-0400 Body weight 115.4 kg [facility] 01-07-2023 14:18-0400 Respiratory rate 14 /min [facility] 01-07-2023 12:01-0400 Diastolic blood pressure 99 mm[Hg] [facility] 01-07-2023 12:01-0400 Systolic blood pressure 154 mm[Hg] [facility] 01-07-2023 08:38-0400 Body height 167.64 cm [facility] 01-07-2023 08:38-0400 Body mass index (BMI) [Ratio] 34.5 kg/m2 [facility] 01-07-2023 08:38-0400 Body temperature 98.7 [degF] [facility] 01-07-2023 08:38-0400 Body weight 97.06 kg [facility] 01-07-2023 08:38-0400 Heart rate 82 /min [facility] 01-07-2023 08:38-0400 SaO2% (BldA) [Mass fraction] 99 % [facility] 11-19-2022 09:26-0400 Body temperature 98.7 [degF] [facility] 11-19-2022 09:26-0400 Diastolic blood pressure 81 mm[Hg] [facility] 11-19-2022 09:26-0400 Heart rate 101 /min [facility] 11-19-2022 09:26-0400 Respiratory rate 14 /min [facility] 11-19-2022 09:26-0400 SaO2% (BldA) [Mass fraction] 99 % [facility] 11-19-2022 09:26-0400 Systolic blood pressure 131 mm[Hg] [facility] 11-19-2022 09:24-0400 Body mass index (BMI) [Ratio] 39.3 kg/m2 [facility] 11-19-2022 09:24-0400 Body weight 110.5 kg [facility] 11-17-2022 08:43-0400 Body temperature 97.5 [degF] Andres Galaviz APRN.PUBLIC TRANSPORTATION INSPECTOR Work Phone: [facility] 11-17-2022 08:43-0400 Body weight 110.22 kg Andres Galaviz APRN.PUBLIC TRANSPORTATION INSPECTOR Work Phone: [facility] 11-17-2022 08:43-0400 Diastolic blood pressure 72 mm[Hg] Andres Galaviz APRN.PUBLIC TRANSPORTATION INSPECTOR Work Phone: [facility] 11-17-2022 08:43-0400 Heart rate 108 /min [facility] RESIDENTIAL GLAZIER.PUBLIC TRANSPORTATION INSPECTOR Work Phone: [facility] 11-17-2022 08:43-0400 Respiratory rate 16 /min [facility] RESIDENTIAL GLAZIER.PUBLIC TRANSPORTATION INSPECTOR Work Phone: [facility] 11-17-2022 08:43-0400 SaO2% (BldA) [Mass fraction] 97 % [facility] RESIDENTIAL GLAZIER.PUBLIC TRANSPORTATION INSPECTOR Work Phone: [facility] 11-17-2022 08:43-0400 Systolic blood pressure 120 mm[Hg] [facility] RESIDENTIAL GLAZIER.PUBLIC TRANSPORTATION INSPECTOR Work Phone: [facility] 10-08-2022 08:44-0400 Body temperature 97 [degF] Shamika Athy PA-C Work Phone: [facility] 10-08-2022 08:44-0400 Body weight 109.14 kg Shamika Athy PA-C Work Phone: [facility] 10-08-2022 08:44-0400 Diastolic blood pressure 82 mm[Hg] Shamika Athy PA-C Work Phone: [facility] 10-08-2022 08:44-0400 Heart rate 94 /min Shamika Athy PA-C Work Phone: [facility] 10-08-2022 08:44-0400 Respiratory rate 16 /min Shamika Athy PA-C Work Phone: [facility] 10-08-2022 08:44-0400 SaO2% (BldA) [Mass fraction] 100 % Shamika Athy PA-C Work Phone: [facility] 10-08-2022 08:44-0400 Systolic blood pressure 112 mm[Hg] Shamika Athy PA-C Work Phone: [facility] 08-15-2022 13:46-0500 Body temperature 98.6 [degF] Dr. Sophy Gibbons Work Phone: 6(576)461-401149 [address] 08-15-2022 13:46-0500 Diastolic blood pressure 95 mm[Hg] Dr. Sophy Gibbons Work Phone: 2(604)594-597812 [place] [address] 08-15-2022 13:46-0500 Heart rate 87 /min Dr. Sophy Gibbons Work Phone: 3(571)679-441412 [place] [address] 08-15-2022 13:46-0500 Respiratory rate 16 /min Dr. Sophy Gibbons Work Phone: 9(812)171-335412 [place] [address] 08-15-2022 13:46-0500 SaO2% (BldA) [Mass fraction] 99 % Dr. Sophy Gibbons Work Phone: 1(605)142-395312 [place] [address] 08-15-2022 13:46-0500 Systolic blood pressure 130 mm[Hg] Dr. Sophy Gibbons Work Phone: 6(021)274-544812 [place] [address] 08-15-2022 05:43-0500 Body weight 107.[address] Sophy Gibbons Work Phone: 5(463)601-671812 [place] [address] 08-13-2022 10:58-0500 Body height 167.[address] Sophy Gibbons Work Phone: 2(258)830-229312 [place] [address] 08-12-2022 22:34-0500 Body mass index (BMI) [Ratio] 37.9 kg/m2 Dr. Sophy Gibbons Work Phone: 5(013)143-459212 [place] [address] 08-12-2022 22:03-0500 Body temperature 98 [degF] Dr. Sophy Gibbons Work Phone: 0(191)496-862412 [place] [address] 08-12-2022 22:03-0500 Diastolic blood pressure 74 mm[Hg] Dr. Sophy Gibbons Work Phone: 3(307)762-795312 [place] [address] 08-12-2022 22:03-0500 Heart rate 82 /min Dr. Sophy Gibbons Work Phone: 0(205)063-706912 [place] [address] 08-12-2022 22:03-0500 Respiratory rate 15 /min Dr. Sophy Gibbons Work Phone: 9(007)835-778512 [place] [address] 08-12-2022 22:03-0500 SaO2% (BldA) [Mass fraction] 99 % Dr. Sophy Gibbons Work Phone: [facility] 08-12-2022 22:03-0500 Systolic blood pressure 118 mm[Hg] Dr. Sophy Gibbons Work Phone: [facility] 08-12-2022 15:27-0500 Body height 167.[address] Sophy Gibbons Work Phone: [facility] 08-12-2022 15:27-0500 Body mass index (BMI) [Ratio] 37.9 kg/m2 Dr. Sophy Gibbons Work Phone: [facility] 08-12-2022 15:27-0500 Body weight 106.[address] Sophy Gibbons Work Phone: [facility] 06-29-2022 08:39-0500 Body temperature 97.6 [degF] No Primary Care Physician [facility] 06-29-2022 08:39-0500 Diastolic blood pressure 90 mm[Hg] No Primary Care Physician [facility] 06-29-2022 08:39-0500 Heart rate 81 /min No Primary Care Physician [facility] 06-29-2022 08:39-0500 Respiratory rate 16 /min No Primary Care Physician [facility] 06-29-2022 08:39-0500 SaO2% (BldA) [Mass fraction] 99 % No Primary Care Physician [facility] 06-29-2022 08:39-0500 Systolic blood pressure 130 mm[Hg] No Primary Care Physician [facility] 06-26-2022 06:09-0500 Body height 167.64 cm No Primary Care Physician [facility] Work Phone: 06-26-2022 06:09-0500 Body mass index (BMI) [Ratio] 38.1 kg/m2 No Primary Care Physician [facility] 06-26-2022 06:09-0500 Body weight 107.1 kg No Primary Care Physician [facility] 06-25-2022 03:57-0500 Body temperature 98.1 [degF] No Primary Care Physician [facility] Work Phone: 06-25-2022 03:57-0500 Diastolic blood pressure 99 mm[Hg] No Primary Care Physician [facility] Work Phone: 06-25-2022 03:57-0500 Heart rate 96 /min No Primary Care Physician [facility] Work Phone: 06-25-2022 03:57-0500 Respiratory rate 18 /min No Primary Care Physician [facility] Work Phone: 06-25-2022 03:57-0500 SaO2% (BldA) [Mass fraction] 97 % No Primary Care Physician [facility] Work Phone: 06-25-2022 03:57-0500 Systolic blood pressure 134 mm[Hg] No Primary Care Physician [facility] Work Phone: 06-24-2022 16:48-0500 Body height 167.64 cm No Primary Care Physician [facility] Work Phone: 06-24-2022 16:48-0500 Body mass index (BMI) [Ratio] 38 kg/m2 No Primary Care Physician [facility] Work Phone: 06-24-2022 16:48-0500 Body weight 107.04 kg No Primary Care Physician [facility] Work Phone: 06-24-2022 15:30-0500 Body temperature 98.9 [degF] No Primary Care Physician [facility] Work Phone: 06-24-2022 15:30-0500 Diastolic blood pressure 99 mm[Hg] No Primary Care Physician [facility] Work Phone: 06-24-2022 15:30-0500 Heart rate 97 /min No Primary Care Physician [facility] Work Phone: 06-24-2022 15:30-0500 Respiratory rate 15 /min No Primary Care Physician [facility] Work Phone: 06-24-2022 15:30-0500 SaO2% (BldA) [Mass fraction] 100 % No Primary Care Physician [facility] Work Phone: 06-24-2022 15:30-0500 Systolic blood pressure 137 mm[Hg] No Primary Care Physician [facility] Work Phone: 06-24-2022 11:12-0500 Body height 167.64 cm No Primary Care Physician [facility] Work Phone: 06-24-2022 11:12-0500 Body mass index (BMI) [Ratio] 35.5 kg/m2 No Primary Care Physician [facility] Work Phone: 06-24-2022 11:12-0500 Body weight 99.79 kg No Primary Care Physician [facility] Work Phone: 04-09-2022 16:15-0400 Body temperature 98.2 [degF] No Primary Care Physician [facility] Work Phone: 04-09-2022 16:15-0400 Diastolic blood pressure 87 mm[Hg] No Primary Care Physician [facility] Work Phone: 04-09-2022 16:15-0400 Heart rate 89 /min No Primary Care Physician [facility] Work Phone: 04-09-2022 16:15-0400 Respiratory rate 18 /min No Primary Care Physician [facility] Work Phone: 04-09-2022 16:15-0400 SaO2% (BldA) [Mass fraction] 99 % No Primary Care Physician [facility] Work Phone: 04-09-2022 16:15-0400 Systolic blood pressure 136 mm[Hg] No Primary Care Physician [facility] Work Phone: 04-08-2022 11:30-0400 Body height 167.64 cm No Primary Care Physician [facility] Work Phone: 04-08-2022 11:30-0400 Body weight 96.6 kg No Primary Care Physician [facility] Work Phone: 04-06-2022 17:48-0400 Body mass index (BMI) [Ratio] 34.3 kg/m2 No Primary Care Physician [facility] Work Phone: 04-06-2022 15:39-0400 Body temperature 100.1 [degF] No Primary Care Physician [facility] Work Phone: 04-06-2022 15:39-0400 Diastolic blood pressure 79 mm[Hg] No Primary Care Physician [facility] Work Phone: 04-06-2022 15:39-0400 Heart rate 114 /min No Primary Care Physician [facility] Work Phone: 04-06-2022 15:39-0400 Respiratory rate 20 /min No Primary Care Physician [facility] Work Phone: 04-06-2022 15:39-0400 SaO2% (BldA) [Mass fraction] 98 % No Primary Care Physician [facility] Work Phone: 04-06-2022 15:39-0400 Systolic blood pressure 136 mm[Hg] No Primary Care Physician [facility] Work Phone: 04-06-2022 12:45-0400 Body height 167.64 cm No Primary Care Physician [facility] Work Phone: 04-06-2022 12:45-0400 Body mass index (BMI) [Ratio] 34.7 kg/m2 No Primary Care Physician [facility] Work Phone: 04-06-2022 12:45-0400 Body weight 97.5 kg No Primary Care Physician [facility] Work Phone: 04-05-2022 16:06-0400 Diastolic blood pressure 95 mm[Hg] No Primary Care Physician [facility] Work Phone: 04-05-2022 16:06-0400 Heart rate 103 /min No Primary Care Physician [facility] Work Phone: 04-05-2022 16:06-0400 Respiratory rate 16 /min No Primary Care Physician [facility] Work Phone: 04-05-2022 16:06-0400 SaO2% (BldA) [Mass fraction] 98 % No Primary Care Physician [facility] Work Phone: 04-05-2022 16:06-0400 Systolic blood pressure 127 mm[Hg] No Primary Care Physician [facility] Work Phone: 04-05-2022 11:53-0400 Body temperature 98 [degF] No Primary Care Physician [facility] Work Phone: 04-05-2022 11:50-0400 Body height 167.64 cm No Primary Care Physician [facility] Work Phone: 04-05-2022 11:50-0400 Body mass index (BMI) [Ratio] 34.4 kg/m2 No Primary Care Physician [facility] Work Phone: 04-05-2022 11:50-0400 Body weight 96.8 kg No Primary Care Physician [facility] Work Phone: 03-23-2022 12:28-0400 Body temperature 97 [degF] Sid Bravo MD Work Phone: [facility] 03-23-2022 12:28-0400 Body weight 97.07 kg Sid Bravo MD Work Phone: [facility] 03-23-2022 12:28-0400 Diastolic blood pressure 98 mm[Hg] Sid Bravo MD Work Phone: [facility] 03-23-2022 12:28-0400 Heart rate 105 /min Sid Bravo MD Work Phone: [facility] 03-23-2022 12:28-0400 Respiratory rate 20 /min Sid Bravo MD Work Phone: [facility] 03-23-2022 12:28-0400 SaO2% (BldA) [Mass fraction] 93 % Sid Bravo MD Work Phone: [facility] 03-23-2022 12:28-0400 Systolic blood pressure 130 mm[Hg] Sid Bravo MD Work Phone: [facility] 02-02-2022 09:33-0400 Body temperature 97.2 [degF] Alyssa Yeni RESIDENTIAL GLAZIER.[employer]ATION INSPECTOR Work Phone: [facility] 02-02-2022 09:33-0400 Body weight 92.53 kg Alyssa Yeni RESIDENTIAL GLAZIER.PUBLIC [employer]SPORTATION INSPECTOR Work Phone: [facility] 02-02-2022 09:33-0400 Diastolic blood pressure 72 mm[Hg] Alyssa Yeni RESIDENTIAL GLAZIER.PUBLIC TRANSPORTATION INSPECTOR Work Phone: [facility] 02-02-2022 09:33-0400 Heart rate 74 /min Alyssa Eyni RESIDENTIAL GLAZIER.PUBLIC TRANSPORTATION INSPECTOR Work Phone: [facility] 02-02-2022 09:33-0400 Respiratory rate 16 /min Alyssa Yeni RESIDENTIAL GLAZIER.PUBLIC TRANSPORTATION INSPECTOR Work Phone: [facility] 02-02-2022 09:33-0400 SaO2% (BldA) [Mass fraction] 99 % Alyssa Yeni RESIDENTIAL GLAZIER.PUBLIC TRANSPORTATION INSPECTOR Work Phone: [facility] 02-02-2022 09:33-0400 Systolic blood pressure 120 mm[Hg] Alyssa Yeni RESIDENTIAL GLAZIER.PUBLIC TRANSPORTATION INSPECTOR Work Phone: [facility] 02-01-2022 17:18-0400 Diastolic blood pressure 100 mm[Hg] No Primary Care Physician [facility] Work Phone: 02-01-2022 17:18-0400 Heart rate 66 /min No Primary Care Physician [facility] Work Phone: 02-01-2022 17:18-0400 Respiratory rate 18 /min No Primary Care Physician [facility] Work Phone: 02-01-2022 17:18-0400 SaO2% (BldA) [Mass fraction] 97 % No Primary Care Physician [facility] Work Phone: 02-01-2022 17:18-0400 Systolic blood pressure 145 mm[Hg] No Primary Care Physician [facility] Work Phone: 02-01-2022 12:42-0400 Body height 167.64 cm No Primary Care Physician [facility] Work Phone: 02-01-2022 12:42-0400 Body mass index (BMI) [Ratio] 32.3 kg/m2 No Primary Care Physician [facility] Work Phone: 02-01-2022 12:42-0400 Body temperature 96.3 [degF] No Primary Care Physician [facility] Work Phone: 02-01-2022 12:42-0400 Body weight 90.71 kg No Primary Care Physician [facility] Work Phone: 01-26-2022 12:31-0400 Body height 167.64 cm [facility] Work Phone: 01-26-2022 12:31-0400 Body mass index (BMI) [Ratio] 32.6 kg/m2 [facility] Work Phone: 01-26-2022 12:31-0400 Body temperature 98.4 [degF] [facility] Work Phone: 01-26-2022 12:31-0400 Body weight 91.71 kg [facility] Work Phone: 01-26-2022 12:31-0400 Diastolic blood pressure 108 mm[Hg] [facility] Work Phone: 01-26-2022 12:31-0400 Heart rate 94 /min [facility] Work Phone: 01-26-2022 12:31-0400 Respiratory rate 22 /min [facility] Work Phone: 01-26-2022 12:31-0400 SaO2% (BldA) [Mass fraction] 99 % [facility] Work Phone: 01-26-2022 12:31-0400 Systolic blood pressure 154 mm[Hg] [facility] Work Phone: 01-23-2022 18:18-0400 Diastolic blood pressure 74 mm[Hg] [facility] Work Phone: 01-23-2022 18:18-0400 Respiratory rate 18 /min [facility] Work Phone: 01-23-2022 18:18-0400 Systolic blood pressure 122 mm[Hg] [facility] Work Phone: 01-23-2022 16:02-0400 Body height 167.64 cm [facility] Work Phone: 01-23-2022 16:02-0400 Body mass index (BMI) [Ratio] 33.9 kg/m2 [facility] Work Phone: 01-23-2022 16:02-0400 Body temperature 97.6 [degF] [facility] Work Phone: 01-23-2022 16:02-0400 Body weight 95.25 kg [facility] Work Phone: 01-23-2022 16:02-0400 Heart rate 99 /min [facility] Work Phone: 01-23-2022 16:02-0400 SaO2% (BldA) [Mass fraction] 100 % [facility] Work Phone: 01-22-2022 23:45-0400 Heart rate 91 /min [facility] Work Phone: 01-22-2022 23:45-0400 Respiratory rate 16 /min [facility] Work Phone: 01-22-2022 23:45-0400 SaO2% (BldA) [Mass fraction] 98 % [facility] Work Phone: 01-22-2022 21:26-0400 Body height 167.64 cm [facility] Work Phone: 01-22-2022 21:26-0400 Body mass index (BMI) [Ratio] 33.9 kg/m2 [facility] Work Phone: 01-22-2022 21:26-0400 Body temperature 97.8 [degF] [facility] Work Phone: 01-22-2022 21:26-0400 Body weight 95.25 kg [facility] Work Phone: 01-22-2022 21:26-0400 Diastolic blood pressure 97 mm[Hg] [facility] Work Phone: 01-22-2022 21:26-0400 Systolic blood pressure 140 mm[Hg] [facility] Work Phone: 01-16-2022 14:12-0400 Body height 167.64 cm [facility] Work Phone: 01-16-2022 14:12-0400 Body mass index (BMI) [Ratio] 33.9 kg/m2 [facility] Work Phone: 01-16-2022 14:12-0400 Body temperature 96.7 [degF] [facility] Work Phone: 01-16-2022 14:12-0400 Body weight 95.3 kg [facility] Work Phone: 01-16-2022 14:12-0400 Diastolic blood pressure 93 mm[Hg] [facility] Work Phone: 01-16-2022 14:12-0400 Heart rate 130 /min [facility] Work Phone: 01-16-2022 14:12-0400 Respiratory rate 18 /min [facility] Work Phone: 01-16-2022 14:12-0400 SaO2% (BldA) [Mass fraction] 98 % [facility] Work Phone: 01-16-2022 14:12-0400 Systolic blood pressure 126 mm[Hg] [facility] Work Phone: 11-16-2021 10:09-0400 Body temperature 98.3 [degF] [facility] Work Phone: 11-16-2021 10:09-0400 Diastolic blood pressure 82 mm[Hg] [facility] Work Phone: 11-16-2021 10:09-0400 Heart rate 98 /min [facility] Work Phone: 11-16-2021 10:09-0400 Systolic blood pressure 138 mm[Hg] [facility] Work Phone: 11-16-2021 08:39-0400 Body height 167.64 cm [facility] Work Phone: 11-16-2021 08:39-0400 Body mass index (BMI) [Ratio] 34.9 kg/m2 [facility] Work Phone: 11-16-2021 08:39-0400 Body weight 98.33 kg [facility] Work Phone: 11-16-2021 08:39-0400 Respiratory rate 16 /min [facility] Work Phone: 11-16-2021 08:39-0400 SaO2% (BldA) [Mass fraction] 96 % [facility] Work Phone: 10-29-2021 12:09-0400 Diastolic blood pressure 69 mm[Hg] [facility] Work Phone: 10-29-2021 12:09-0400 Heart rate 71 /min [facility] Work Phone: 10-29-2021 12:09-0400 Respiratory rate 15 /min [facility] Work Phone: 10-29-2021 12:09-0400 SaO2% (BldA) [Mass fraction] 98 % [facility] Work Phone: 10-29-2021 12:09-0400 Systolic blood pressure 124 mm[Hg] [facility] Work Phone: 10-29-2021 08:59-0400 Body height 167.64 cm [facility] Work Phone: 10-29-2021 08:59-0400 Body mass index (BMI) [Ratio] 34.6 kg/m2 [facility] Work Phone: 10-29-2021 08:59-0400 Body temperature 96.9 [degF] [facility] Work Phone: 10-29-2021 08:59-0400 Body weight 97.4 kg [facility] Work Phone: 10-24-2021 08:30-0400 Body temperature 97.3 [degF] [facility] Work Phone: 10-24-2021 08:30-0400 Diastolic blood pressure 92 mm[Hg] [facility] Work Phone: 10-24-2021 08:30-0400 Heart rate 98 /min [facility] Work Phone: 10-24-2021 08:30-0400 Respiratory rate 16 /min [facility] Work Phone: 10-24-2021 08:30-0400 SaO2% (BldA) [Mass fraction] 100 % [facility] Work Phone: 10-24-2021 08:30-0400 Systolic blood pressure 148 mm[Hg] [facility] Work Phone: 10-24-2021 08:18-0400 Body height 167.64 cm [facility] Work Phone: 10-24-2021 08:18-0400 Body mass index (BMI) [Ratio] 33.7 kg/m2 [facility] Work Phone: 10-24-2021 08:18-0400 Body weight 95 kg [facility] Work Phone: 08-10-2021 23:58-0500 Heart rate 107 /min [facility] Work Phone: 08-10-2021 23:58-0500 Respiratory rate 18 /min [facility] Work Phone: 08-10-2021 23:58-0500 SaO2% (BldA) [Mass fraction] 100 % [facility] Work Phone: 08-10-2021 22:57-0500 Diastolic blood pressure 88 mm[Hg] [facility] Work Phone: 08-10-2021 22:57-0500 Systolic blood pressure 125 mm[Hg] [facility] Work Phone: 08-10-2021 21:32-0500 Body mass index (BMI) [Ratio] 35.5 kg/m2 [facility] Work Phone: 08-10-2021 21:32-0500 Body temperature 97.6 [degF] [facility] Work Phone: 08-10-2021 21:32-0500 Body weight 99.79 kg [facility] Work Phone: Encounters Encounter Date Encounter Type Care Provider Facility Start: 02-15-2025 ambulatory Amy Radford in [facility] Facility:[facility] Start: 01-11-2025 ambulatory Amy Radford in 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 Facility:[facility] Start: 12-13-2024 End: 12-13-2024 ambulatory Amy Solorzano SURFACE GRINDER TENDER-C Work Phone: [facility] Work Phone: Start: 12-13-2024 End: 12-13-2024 Patient encounter procedure Nayana GRADY -Laboratory Work Phone: Start: 12-13-2024 End: 12-13-2024 Patient encounter procedure Nayana GRADY [facility] Work Phone: Start: 12-13-2024 End: 12-13-2024 ambulatory Amy Solorzano SURFACE GRINDER TENDER-C Work Phone: [facility] Work Phone: Start: 12-13-2024 End: 12-13-2024 ambulatory Nayana Peter Facility:[facility] Start: 11-28-2024 Non-patient / Non-visit Dr. Gale Lr DO -[facility] Work Phone: Start: 11-28-2024 Non-patient / Non-visit Clare Loo PA-C [facility] Start: 11-27-2024 Non-patient / Non-visit Clare Loo PA-C [facility] Start: 11-26-2024 Non-patient / Non-visit Dr. Clair Rao MD -[facility] Work Phone: Start: 11-26-2024 Non-patient / Non-visit Dr. Fahad Welch MD -[facility] Start: 11-25-2024 Non-patient / Non-visit Dr. Fahad Welch MD -[facility] Start: 11-25-2024 ambulatory Brenda Rao Facility [facility] Start: 11-25-2024 End: 11-28-2024 Evaluation and management of inpatient Dr. Brenda Rao MD -Medical Surgical 3 Work Phone: Start: 10-26-2024 ambulatory Abdirizak Sherrill Facility: [facility] Start: 10-25-2024 End: 10-25-2024 ambulatory Amy Solorzano SURFACE GRINDER TENDER-C Work Phone: [facility] Work Phone: Start: 10-25-2024 End: 10-25-[address] Abdirizak Forrest DPM -Cardiovascular Services Work Phone: Start: 10-25-2024 End: 10-25-2024 ambulatory Abdirizak [facility] Start: 10-17-2024 End: 10-17-2024 ambulatory Amy Sherwood SURFACE GRINDER TENDER-C Work Phone: [facility] Work Phone: Start: 10-17-2024 End: 10-17-[address] [facility] Amy Rashad SURFACE GRINDER TENDER-C -Singh, Sophy Gibbons Start: 10-17-2024 End: 10-17-2024 ambulatory [facility] Facility:[facility] Start: 07-03-2024 End: 07-03-2024 Patient encounter procedure Irais GRADY Work Phone: [facility] Comment on above: Acute cough (Primary Dx) Start: 07-03-2024 End: 07-03-2024 ambulatory [facility] Facility:[facility] Start: 07-03-2024 End: 07-03-2024 Subsequent hospital visit by physician Santiago [facility] Work Phone: Radiology Comment on above: Acute cough [R05.1] Start: 06-26-2024 End: 06-26-2024 ambulatory [facility] Facility:[facility] Start: 06-26-2024 End: 06-26-2024 Office outpatient visit 25 minutes Frantz Arevalo PA-C Work Phone: [facility] Comment on above: Bronchopneumonia (Pr imary Dx); Mild intermittent asthma, uncomplicated Start: 04-25-2024 End: 04-25-2024 ambulatory [facility] Facility:[facility] Start: 11-08-2023 End: 11-08-2023 ambulatory [facility] Work Phone: Start: 11-08-2023 End: 11-08-2023 Patient encounter procedure [facility] Work Phone: Start: 07-23-2023 End: 07-23-2023 Admission to same day surgery center [facility] Start: 07-23-2023 End: 07-23-2023 ambulatory No Primary Care Physician [facility] Work Phone: Start: 07-23-2023 End: 07-23-2023 No Primary Care Physician [facility] Start: 07-12-2023 End: 07-12-2023 No Primary Care Physician [facility]-Emergency Department Work Phone: Start: 07-02-2023 End: 07-02-2023 Emergency department patient visit No Primary Care Physician [facility] Work Phone: Start: 07-02-2023 End: 07-02-2023 No Primary Care Physician [facility]-Emergency Department Work Phone: Start: 07-01-2023 End: 07-01-2023 Office outpatient visit 15 minutes Andres Galaviz APRN.[facility] Work Phone: [facility] Comment on above: Pain of right eye (P rimary Dx) Start: 06-30-2023 End: 06-30-2023 No Primary Care Physician [facility]-Emergency Department Work Phone: Start: 06-28-2023 End: 06-28-2023 Emergency department patient visit No Primary Care Physician [facility]-Emergency Department Work Phone: Start: 06-28-2023 End: 06-28-2023 No Primary Care Physician [facility]-Emergency Department Work Phone: Start: 06-27-2023 End: 06-27-2023 Emergency department patient visit No Primary Care Physician [facility]-Emergency Department Work Phone: Start: 06-27-2023 End: 06-27-2023 No Primary Care Physician [facility]-Emergency Department Work Phone: Start: 06-26-2023 End: 06-26-2023 Emergency department patient visit No Primary Care Physician [facility]-Emergency Department Work Phone: Start: 06-26-2023 End: 06-26-2023 No Primary Care Physician [facility]-Emergency Department Work Phone: Start: 06-25-2023 End: 06-25-2023 Emergency department patient visit No Primary Care Physician [facility]-Emergency Department Work Phone: Start: 06-25-2023 End: 06-25-2023 No Primary Care Physician [facility]-Emergency Department Work Phone: Start: 05-18-2023 End: 05-18-2023 ambulatory No Primary Care Physician [facility] Work Phone: Start: 05-18-2023 End: 05-18-2023 Patient encounter procedure No Primary Care Physician [facility]-Laboratory, Specimen Work Phone: Start: 05-18-2023 End: 05-18-2023 No Primary Care Physician [facility]-Laboratory, Specimen Work Phone: Start: 05-09-2023 Non-patient / Non-visit No Kristina cormier Care Physician [facility] Work Phone: Start: 05-09-2023 [facility] Work Phone: [facility] Work Phone: Start: 05-08-2023 Non-patient / Non-visit No Kristina cormier Care Physician [facility] Work Phone: Start: 05-08-2023 [facility] Work Phone: [facility] Work Phone: Start: 05-07-2023 Non-patient / Non-visit No Kristina cormier Care Physician [facility] Work Phone: Start: 05-07-2023 [facility] Work Phone: [facility] Work Phone: Start: 05-06-2023 Non-patient / Non-visit No Kristina cormier Care Physician [facility] Work Phone: Start: 05-06-2023 [facility] Work Phone: [facility] Work Phone: Start: 05-05-2023 Non-patient / Non-visit No Kristina cormier Care Physician [facility] Work Phone: Start: 05-05-2023 [facility] Work Phone: [facility] Work Phone: Start: 05-04-2023 End: 05-09-2023 Evaluation and management of inpatient [facility] Work Phone: [facility] Work Phone: Start: 05-04-2023 End: 05-09-2023 [facility] Work Phone: [facility]-Medical Surgical 3 Work Phone: Start: 05-04-2023 ambulatory [facility] Work Phone: [facility] Work Phone: Start: 05-04-2023 [facility] Work Phone: [facility] Work Phone: Start: 05-04-2023 Non-patient / Non-visit No Kristina Woo Physician [facility] Work Phone: Start: 05-04-2023 [facility] Work Phone: [facility] Work Phone: Start: 04-15-2023 End: 04-15-2023 Emergency department patient visit No Primary Care Physician [facility] Work Phone: Start: 04-15-2023 End: 04-15-2023 [facility] Work Phone: [facility] Work Phone: Start: 04-15-2023 End: 04-15-2023 Patient encounter procedure Abdirizak Peña APRN.PUBLIC TRANSPORTATION INSPECTOR Work Phone: [facility] Comment on above: SOB (shortness of br eath) (Primary Dx); Abdominal pain, unspecified abdominal location Start: 04-14-2023 End: 04-14-2023 Emergency department patient visit No Primary Care Physician [facility] Work Phone: Start: 04-14-2023 End: 04-14-2023 [facility] Work Phone: [facility] Work Phone: Start: 04-13-2023 End: 04-13-2023 Emergency department patient [facility] No [facility] Start: 04-13-2023 End: 04-13-2023 [facility] Work Phone: [facility] Work Phone: Start: 03-26-2023 ambulatory No Pcp RESIDENTIAL GLAZIER [employer] Start: 03-12-2023 Orders Only Pilar farrar APRN.PUBLIC TRANSPORTATION INSPECTOR Work Phone: [facility] Comment on above: Chronic abdominal pa in (Primary Dx) Start: 03-10-2023 Telephone encounter Amy redding NP Work Phone: NOC Comment on above: Follow Up (Post Disc harge F/U - 1st attempt made. No answer./) Start: 03-09-2023 Telephone encounter Pilar barrios APRN.PUBLIC TRANSPORTATION INSPECTOR Work Phone: [facility] Comment on above: Consult Start: 03-06-2023 End: 03-06-2023 Emergency department patient visit [facility] Work Phone: [facility] Work Phone: Start: 03-06-2023 End: 03-06-2023 [facility] Work Phone: [facility] Work Phone: Start: 03-02-2023 ambulatory No Pcp RESIDENTIAL GLAZIER [employer] Start: 03-02-2023 Telephone encounter Almita lara PA-C Work Phone: SP Provider Adult Comment on above: Appointment Start: 03-01-2023 End: 03-04-2023 [facility] Start: 03-01-2023 End: 03-01-2023 Patient encounter procedure Dewayne Doarn MD Work Phone: Gastroenterology Comment on above: Vomiting, unspecifie d vomiting type, unspecified whether nausea present (Primary Dx); Chronic nausea Start: 02-25-2023 End: 02-26-2023 Emergency department patient visit [facility] Work Phone: [facility] Work Phone: Start: 02-25-2023 End: 02-26-2023 [facility] Start: 02-24-2023 End: 02-24-2023 Emergency department patient visit No [facility]: Start: 02-24-2023 End: 02-24-2023 [facility] Work Phone: [facility] Work Phone: Start: 02-23-2023 End: 02-23-2023 Patient encounter procedure Pilar Magdaleno APRN.PUBLIC TRANSPORTATION INSPECTOR Work Phone: [facility] [place] Comment on above: Chronic nausea (Prim crystal Dx); Chronic abdominal pain Start: 02-17-2023 End: 02-18-2023 Emergency department patient visit DEWAYNE BRAGA [facility] Start: 02-11-2023 End: 02-11-2023 ambulatory GERALDINE SILVA DO Facility:B Start: 02-10-2023 End: 02-11-2023 Observation HELENA SILVERMAN APRN-PUBLIC TRANSPORTATION INSPECTOR [facility] Start: 02-08-2023 End: 02-08-2023 Emergency department patient visit [facility] Work Phone: [facility] Work Phone: Start: 02-08-2023 End: 02-08-2023 [facility] Work Phone: [facility] Work Phone: Start: 02-04-2023 End: 02-04-2023 Patient encounter procedure Irais GRADY Work Phone: [facility] Comment on above: Generalized abdomina l pain (Primary Dx) Start: 02-04-2023 End: 02-04-2023 Emergency department patient visit [facility] Work Phone: [facility] Work Phone: Start: 02-04-2023 End: 02-04-2023 [facility] Work Phone: [facility] Work Phone: Start: 01-25-2023 End: 01-25-2023 Emergency department patient visit [facility] Start: 01-25-2023 End: 01-25-2023 [facility] Work Phone: [facility] Work Phone: Start: 01-24-2023 End: 01-24-2023 Emergency department patient visit ABDIRIZAK RAMIREZ [facility] Start: 01-24-2023 End: 01-24-2023 Emergency department patient visit Abdirizak Ramirez MD Work Phone: [facility] Comment on above: Nausea and vomiting, unspecified vomiting type (Primary Dx); Syncope and collapse Start: 01-17-2023 End: 01-17-2023 Emergency department patient visit GERALDINE ROLAND [facility] Start: 01-15-2023 Non-patient / Non-visit [facility] Work Phone: [facility] Work Phone: Start: 01-15-2023 [facility] Work Phone: [facility] [facility] Work Phone: Start: 01-14-2023 End: 01-15-2023 Evaluation and management of inpatient [facility] Work Phone: [facility] Surgical 3 Work Phone: Start: 01-14-2023 End: 01-15-2023 observation encounter [facility] Work Phone: [facility] Work Phone: Start: 01-14-2023 End: 01-15-2023 [facility] Work Phone: [facility] 3 Work Phone: Start: 01-13-2023 End: 01-13-2023 Emergency department patient visit [facility] Work Phone: [facility] Work Phone: Start: 01-13-2023 End: 01-13-2023 [facility] Work Phone: [facility] Work Phone: Start: 01-12-2023 End: 01-12-2023 Emergency department patient visit [facility] Work Phone: Start: 01-12-2023 End: 01-12-2023 [facility] Work Phone: [facility] Work Phone: Start: 01-11-2023 End: 01-12-2023 Emergency department patient visit [facility] Work Phone: Start: 01-11-2023 End: 01-12-2023 [facility] Work Phone: [facility] Work Phone: Start: 01-10-2023 End: 01-10-2023 Emergency department patient visit ESSIE DOWNS DO Facility:B Start: 01-10-2023 End: 01-10-2023 Emergency department patient visit ESSIE DOWNS DO [facility] Start: 01-09-2023 End: 01-09-2023 Emergency department patient visit [facility] Work Phone: Start: 01-09-2023 End: 01-09-2023 [facility] Work Phone: [facility] Work Phone: Start: 01-07-2023 End: 01-07-2023 Emergency department patient visit [facility] Work Phone: Start: 01-07-2023 End: 01-07-2023 [facility] Work Phone: [facility] Work Phone: Start: 11-25-2022 End: 11-25-2022 ambulatory [facility] Work Phone: [facility] Work Phone: Start: 11-25-2022 End: 11-25-2022 Patient encounter procedure [facility] Work Phone: Start: 11-25-2022 End: 11-25-2022 [facility] Start: 11-19-2022 End: 11-19-2022 Emergency department patient visit [facility] Work Phone: Start: 11-19-2022 End: 11-19-2022 [facility] Work Phone: [facility] Work Phone: Start: 11-17-2022 End: 11-17-2022 Office outpatient visit 25 minutes Andres Galaviz APRN.PUBLIC TRANSPORTATION INSPECTOR Work Phone: [facility] Comment on above: Facial infection (Pr imary Dx) Start: 10-11-2022 Telephone encounter Irais GRADY Work Phone: [facility] Comment on above: Results Start: 10-08-2022 End: 10-08-2022 Patient encounter procedure Shamika Goins PA-C Work Phone: [facility] Comment on above: Toe infection (Prima ry Dx); Facial infection; History of MRSA infection Start: 08-14-2022 Non-patient / Non-visit Dr. Jessica Gibbons Work Phone: [facility] Start: 08-13-2022 Non-patient / Non-visit Dr. Jessica Gibbons Work Phone: [facility] Start: 08-12-2022 Non-patient / Non-visit Dr. Jessica Gibbons Work Phone: [facility] Start: 08-12-2022 End: 08-15-2022 Evaluation and management of inpatient Dr. Sophy Gibbons Work Phone: [facility]Progressive Care Unit Start: 06-29-2022 Non-patient / Non-visit No Kristina cormier Care Physician [facility] Start: 06-28-2022 Non-patient / Non-visit No Kristina casa Care Physician [facility] Start: 06-27-2022 Non-patient / Non-visit No Kristina cormier Care Physician [facility] Start: 06-26-2022 Non-patient / Non-visit No Kristina casa Care Physician [facility] Start: 06-25-2022 Non-patient / Non-visit No Kristina casa Care Physician [facility] Start: 06-24-2022 End: 06-29-2022 Evaluation and management of inpatient No Primary Care Physician [facility]Medical Surgical 3 Start: 06-23-2022 End: 06-23-2022 ambulatory No Primary Care Physician [facility] Work Phone: Start: 06-23-2022 End: 06-23-2022 Patient encounter procedure No Primary Care Physician [facility]Laboratory, Specimen Start: 05-07-2022 End: 05-07-2022 ambulatory No Primary Care Physician [facility] Work Phone: Start: 05-07-2022 End: 05-07-2022 Patient encounter procedure No Primary Care Physician [facility] Start: 04-20-2022 End: 04-20-2022 ambulatory No Primary Care Physician [facility] Work Phone: Start: 04-20-2022 End: 04-20-2022 Departed Referred No Primary Care Physician [facility] 100/200 Start: 04-20-2022 Registered Referred No Primary Care Physician [facility] 100/200 Start: 04-13-2022 End: 04-13-2022 ambulatory No Primary Care Physician [facility] Work Phone: Start: 04-13-2022 End: 04-13-2022 Departed Referred No Primary Care Physician [facility] 100/200 Start: 04-13-2022 Registered Referred No Primary Care Physician [facility] 100/200 Start: 04-10-2022 End: 04-10-2022 ambulatory No Primary Care Physician [facility] Work Phone: Start: 04-10-2022 End: 04-10-2022 Departed Referred No Primary Care Physician [facility] 100/200 Start: 04-09-2022 Non-patient / Non-visit No Kristina cormier Care Physician [facility] Start: 04-08-2022 Non-patient / Non-visit No Kristina casa Care Physician [facility] Start: 04-07-2022 Non-patient / Non-visit No Kristina casa Care Physician [facility] Start: 04-06-2022 Non-patient / Non-visit No Kristina casa Care Physician [facility] Start: 04-06-2022 End: 04-09-2022 Evaluation and management of inpatient No Primary Care Physician [facility] 3 Start: 04-05-2022 End: 04-05-2022 Emergency department patient visit No Primary Care Physician [facility] Start: 03-23-2022 End: 03-23-2022 Subsequent hospital visit by physician Santiago [facility] [place] Work Phone: Radiology Comment on above: Acute cough [R05.1] Start: 03-23-2022 End: 03-23-2022 Patient encounter procedure Sid Bravo MD Work Phone: [facility] Comment on above: Acute cough (Primary Dx); Mild intermittent asthmatic bronchitis without complication Start: 02-16-2022 End: 02-16-2022 Patient encounter procedure No Primary Care Physician [facility] Start: 02-02-2022 End: 02-02-2022 Patient encounter procedure Alyssa Yeni JANG Work Phone: [facility] Comment on above: Abnormal lung scan ( Primary Dx); Nausea and vomiting, unspecified vomiting type Start: 02-01-2022 End: 02-01-2022 Emergency department patient visit No Primary Care Physician [facility] Start: 01-30-2022 End: 01-30-2022 Patient encounter procedure No Primary Care Physician [facility] Start: 01-30-2022 End: 01-30-2022 Patient encounter procedure No Primary Care Physician [facility] Start: 01-26-2022 End: 01-26-2022 Emergency department patient visit [facility] Start: 01-23-2022 End: 01-23-2022 Emergency department patient visit [facility] Start: 01-22-2022 End: 01-22-2022 Emergency department patient visit [facility] Start: 01-16-2022 End: 01-16-2022 Emergency department patient visit [facility] Start: 11-16-2021 End: 11-16-2021 Emergency department patient visit [facility] Start: 10-29-2021 End: 10-29-2021 Emergency department patient visit [facility] Start: 10-24-2021 End: 10-24-2021 Emergency department patient visit [facility] Start: 08-10-2021 End: 08-11-2021 Emergency department patient visit [facility] Start: 05-15-2021 End: 05-15-2021 Subsequent hospital visit by physician Xr [facility] Work Phone: Radiology Comment on above: Cough [R05.9] Procedures Date Procedure Procedure Detail Performing Clinician Start: 12-25-2024 Ultrasonography of abdomen Amy Solorzano SURFACE GRINDER TENDER-C Work Phone: Start: 11-28-2024 Estimated creatinine clearance Amy Solorzano SURFACE GRINDER TENDER-C Work Phone: Start: 11-27-2024 Computed tomography of abdomen and pelvis with contrast Amy Solorzano SURFACE GRINDER TENDER-C Work Phone: Start: 11-26-2024 Plain X-ray abdomen Glendy Solorzano SURFACE GRINDER TENDER-C Work Phone: Start: 11-25-2024 Blood culture Amy kim SURFACE GRINDER TENDER-C Work Phone: Start: 11-25-2024 Computed tomography of abdomen and pelvis with intravenous contrast Amy Solorzano SURFACE GRINDER TENDER-C Work Phone: Start: 11-25-2024 Urnls dip stick/tabl et reagent auto microscopy Amy Solorzano SURFACE GRINDER TENDER-C Work Phone: Start: 11-25-2024 Plain X-ray abdomen Glendy Solorzano SURFACE GRINDER TENDER-C Work Phone: Start: 11-25-2024 Estimated creatinine clearance Amy Solorzano SURFACE GRINDER TENDER-C Work Phone: Start: 10-17-2024 Vitamin D, 25-hydrox y measurement Amy Solorzano SURFACE GRINDER TENDER-C Work Phone: Comment on above: Vitamin D [...] Care Physician Start: 05-18-2023 Mycology culture No [facility] Physician Start: 05-08-2023 Plain X-ray abdomen [facility] Work Phone: Start: 05-07-2023 Incision and drainag e of abscess [facility] Work Phone: Start: 05-04-2023 MRI of lower extremity [facility] Work Phone: Start: 05-04-2023 Incision and drainag e of abscess [facility] Work Phone: Start: 05-04-2023 Anaerobic microbial culture No Primary Care Physician Start: 05-04-2023 Bacteria identified in Blood by Culture No Primary Care Physician Start: 05-04-2023 Fungus stain method No Primary Care Physician Start: 05-04-2023 Investigation of tra nsfusion reaction [facility] Work Phone: Start: 05-04-2023 Microbial culture, routine [facility] Work Phone: Start: 05-04-2023 Mycology culture No [facility] Physician Start: 05-04-2023 [facility] Work Phone: Start: 05-04-2023 X-ray of both feet [facility] Work Phone: Start: 03-06-2023 Computed tomography of abdomen and pelvis with contrast [facility] Work Phone: Start: 03-06-2023 X-ray of both feet [facility] Work Phone: Start: 02-26-2023 Computed tomography of abdomen and pelvis with intravenous contrast [facility] Work Phone: Start: 02-24-2023 Plain X-ray of toe [facility] Work Phone: Start: 02-17-2023 Urinalysis DEWAYNE Mendoza Comment on above: Result Comment: URIN ALYSIS Performed By: #### [id number] #### [facility],[address] [place] [id number] Start: 02-08-2023 Computed tomography of abdomen and pelvis with contrast [facility] Work Phone: Start: 01-24-2023 Ecg routine ecg [...] Comment: URIN ALYSIS Performed By: #### [id number] #### [facility],[address] [place] [id number] Start: 01-14-2023 Urine culture [facility] Work Phone: Start: 01-14-2023 Computed tomography of abdomen and pelvis with intravenous contrast [facility] Work Phone: Start: 08-12-2022 US urinary tract [...] exam ches t 2 views Andres Galaviz APRN.[facility] Work Phone: Acid fast bacilli culture [...] of 2) Zoster Vaccines (1 of 2) [facility] Start: 11-28-2024 Patient discharge [facility] Start: 11-28-2024 [facility] Start: 11-26-2024 End: 11-27-2024 [facility] Start: 11-26-2024 Inhalation therapy procedure [facility] Start: 11-25-2024 Following clinical pathway protocol [facility] Start: 11-25-2024 Assessment of risk of venous thromboembolism [facility] Start: 11-25-2024 Care regimes management [facility] Start: 11-25-2024 Insertion of catheter into peripheral vein [facility] Start: 11-25-2024 Notification of physician [facility] Start: 11-25-2024 Providing care according to standard [facility] Start: 11-25-2024 Provision of activity privileges [facility] Start: 11-25-2024 Referral to general surgeon [facility] Start: 11-25-2024 Referral to occupational therapist [facility] Start: 11-25-2024 Referral to service [facility] Start: 11-25-2024 End: 11-25-2024 [facility] Start: 11-25-2024 Hospital admission, emergency, from emergency room, medical nature [facility] Start: 11-25-2024 Bacteria identified in Blood by Culture Blood Culture [facility] Start: 11-25-2024 Blood culture Blood Culture [facility] Start: 11-25-2024 Admission procedure [facility] Start: 11-25-2024 Verification routine [facility] Start: 11-25-2024 [facility] Start: 03-12-2024 Covid-19 Vaccine ( season) Covid-19 Vaccine ( season) [facility] Start: 03-12-2024 Influenza vaccination Influenza Vaccine (#1) [facility] Start: 02-24-2024 ANNUAL PCP TEAM CHRONIC DISEASE VISIT ANNUAL PCP TEAM CHRONIC DISEASE VISIT [facility] Start: 01-12-2024 Hemoglobin A1c measurement HbA1C [facility] Start: 07-23-2023 Amputation foot transmetarsal AMPUTATION THRU METATARSAL [facility] Start: 07-23-2023 Anes open proc bones lower leg/ankle/foot nos ANESTH LOWER LEG BONE SURG [facility] Start: 07-23-2023 Injection aa&/strd sciatic nerve NJX AA&/STRD SCIATIC NRV IMG [facility] Start: 07-23-2023 Musc myocutaneous/fasciocutaneous flap lxtr MUSCLE-SKIN GRAFT LEG [facility] Start: 07-23-2023 Smr prim src gram/giemsa stain bct fungi/cell SMEAR GRAM STAIN [facility] Start: 07-23-2023 [facility] Start: 07-23-2023 Patient discharge [facility] Start: 07-23-2023 X-ray of both feet [facility] Start: 07-23-2023 XR Foot GE 3 Views [facility] Start: 07-12-2023 [facility] Start: 06-28-2023 [facility] Start: 06-27-2023 [facility] Start: 06-27-2023 Blood chemistry [facility] Start: 06-26-2023 [facility] Start: 06-25-2023 [facility] Start: 05-21-2023 Hemoglobin A1c measurement HbA1C [facility] Start: 05-21-2023 Hemoglobin A1c/Hemoglobin.total in Blood HBA1C [facility] Start: 05-18-2023 Anaerobic microbial culture Anaerobic Culture [facility] Start: 05-18-2023 [facility] Start: 05-09-2023 Patient discharge [facility] Start: 05-08-2023 Inhalation therapy procedure [facility] Start: 05-07-2023 [facility] Start: 05-04-2023 [facility] Start: 05-04-2023 Ambulation without limitation [facility] Start: 05-04-2023 Assessment of risk of venous thromboembolism [facility] Start: 05-04-2023 Care regimes management [facility] Start: 05-04-2023 Consultation for treatment [facility] Start: 05-04-2023 Insertion of catheter into peripheral vein [facility] Start: 05-04-2023 Notification of physician [facility] Start: 05-04-2023 Patient referral to dietitian [facility] Start: 05-04-2023 Providing care according to standard [facility] Start: 05-04-2023 [facility] Start: 05-04-2023 Following clinical pathway protocol [facility] Start: 05-04-2023 Incision and drainage of abscess [facility] Start: 05-04-2023 Admission procedure [facility] Start: 05-04-2023 Hospital admission, emergency, from emergency room, medical nature [facility] Start: 05-04-2023 End: 05-04-2023 Blood culture [facility] Start: 05-04-2023 End: 05-04-2023 [facility] Start: 05-04-2023 [facility] Start: 04-15-2023 [facility] Start: 03-12-2023 Covid-19 Vaccine ( season) Covid-19 Vaccine ( season) [facility] Start: 03-12-2023 Influenza vaccination [facility] Start: 01-25-2023 Blood chemistry [facility] Start: 01-25-2023 Computed tomography of abdomen and pelvis with intravenous contrast Abdomen/Pelvis W IV Cont ONLY [facility] Start: 01-25-2023 Electrocardiographic procedure [facility] Start: 01-25-2023 Lipase measurement [facility] Start: 01-25-2023 [facility] Start: 01-19-2023 [facility] Start: 01-18-2023 [facility] Start: 01-17-2023 [facility] Start: 01-16-2023 [facility] Start: 01-15-2023 [facility] [facility] Start: 01-14-2023 Referral to service [facility] Start: 01-14-2023 Assessment of risk of venous thromboembolism [facility] Start: 01-14-2023 Care regimes management [facility] Start: 01-14-2023 Insertion of catheter into peripheral vein [facility] Start: 01-14-2023 Measuring intake and output [facility] Start: 01-14-2023 Patient referral to dietitian [facility] Start: 01-14-2023 Providing care according to standard [facility] Start: 01-14-2023 Provision of activity privileges [facility] Start: 01-14-2023 [facility] Start: 01-14-2023 Following clinical pathway protocol [facility] Start: 01-14-2023 Verification routine [facility] Start: 01-14-2023 Admission procedure [facility] Start: 01-12-2023 US Gallbladder [facility] Start: 01-12-2023 US Pelvis transvaginal [facility] Start: 10-08-2022 End: 12-08-2022 Bacteria identified in Wound by Culture ABSCESS AND WOUND CULTURE WITH GRAM STAIN Microbiology Routine Toe infection Expected: 10/08/2022, Expires: 12/08/2022 [facility] Work Phone: Comment on above: Expected: 10/08/2022, Expires: Start: 08-15-2022 Patient discharge [facility] Start: 08-14-2022 Provision of activity privileges [facility] Start: 08-13-2022 End: 08-13-2022 Blood culture [facility] Start: 08-13-2022 [facility] Start: 08-13-2022 [facility] Start: 08-12-2022 Following clinical pathway protocol [facility] Start: 08-12-2022 Assessment of risk of venous thromboembolism [facility] Start: 08-12-2022 Care regimes management [facility] Start: 08-12-2022 Insertion of catheter into peripheral vein [facility] Start: 08-12-2022 Measuring intake and output [facility] Start: 08-12-2022 Notification of physician [facility] Start: 08-12-2022 Providing care according to standard [facility] Start: 08-12-2022 Provision of activity privileges [facility] Start: 08-12-2022 [facility] Start: 08-12-2022 Admission procedure [facility] Start: 08-12-2022 [facility] Start: 08-12-2022 Patient referral to dietitian [facility] Start: 07-12-2022 DEPRESSION ASSESSMENT DEPRESSION ASSESSMENT [facility] Start: 06-30-2022 Blood chemistry [facility] Work Phone: Start: 06-29-2022 Patient discharge [facility] Start: 06-29-2022 Blood chemistry [facility] Work Phone: Start: 06-28-2022 Blood chemistry [facility] Work Phone: Start: 06-27-2022 Blood chemistry [facility] Work Phone: Start: 06-26-2022 Wound care [facility] Start: 06-26-2022 Elevation of affected extremity [facility] Start: 06-26-2022 [facility] Start: 06-26-2022 Debridement Debridement Wound (Right) [facility] Work Phone: Start: 06-26-2022 Blood chemistry [facility] Work Phone: Start: 06-25-2022 Referral to service [facility] Start: 06-25-2022 Consultation [facility] Start: 06-24-2022 Assessment of risk of venous thromboembolism [facility] Start: 06-24-2022 Care regimes management [facility] Start: 06-24-2022 Consultation for treatment [facility] Start: 06-24-2022 Insertion of catheter into peripheral vein [facility] Start: 06-24-2022 Providing care according to standard [facility] Start: 06-24-2022 Provision of activity privileges [facility] Start: 06-24-2022 Referral to occupational therapist [facility] Start: 06-24-2022 Referral to fisher sponge hooking [facility] Start: 06-24-2022 Referral to service [facility] Start: 06-24-2022 [facility] Start: 06-24-2022 Following clinical pathway protocol [facility] Start: 06-24-2022 End: 06-25-2022 [facility] Start: 06-24-2022 Verification routine [facility] Work Phone: Start: 06-24-2022 Admission procedure [facility] Start: 06-24-2022 End: 06-24-2022 Blood culture [facility] Work Phone: Start: 06-24-2022 Patient referral to dietitian [facility] Start: 06-23-2022 Cul bact aerobic addl meths definitive ea isol CULTURE AEROBIC IDENTIFY [facility] Start: 06-23-2022 Cul bact xcpt urine blood/stool aerobic isol CULTURE OTHR SPECIMN AEROBIC [facility] Start: 06-23-2022 Iadna s aureus amplified probe tq STAPH A DNA AMP PROBE [facility] Start: 06-23-2022 Smr prim src gram/giemsa stain bct fungi/cell SMEAR GRAM STAIN [facility] Start: 06-23-2022 [facility] Work Phone: Start: 04-27-2022 Hemoglobin A1c/Hemoglobin.total in Blood HBA1C [facility] Start: 04-09-2022 Patient discharge [facility] Work Phone: Start: 04-07-2022 Consultation [facility] Work Phone: Start: 04-07-2022 End: 04-07-2022 Referral to service [facility] Work Phone: Start: 04-06-2022 Elevation of affected extremity [facility] Work Phone: Start: 04-06-2022 [facility] Work Phone: Start: 04-06-2022 End: 04-06-2022 Following clinical pathway protocol [facility] Work Phone: Start: 04-06-2022 Ambulation without limitation [facility] Work Phone: Start: 04-06-2022 Assessment of risk of venous thromboembolism [facility] Work Phone: Start: 04-06-2022 Care regimes management [facility] Work Phone: Start: 04-06-2022 Consultation for treatment [facility] Work Phone: Start: 04-06-2022 Elevation of affected extremity [facility] Work Phone: Start: 04-06-2022 Insertion of catheter into peripheral vein [facility] Work Phone: Start: 04-06-2022 Notification of physician [facility] Work Phone: Start: 04-06-2022 Patient referral to dietitian [facility] Work Phone: Start: 04-06-2022 Providing care according to standard [facility] Work Phone: Start: 04-06-2022 Referral to fisher sponge hooking [facility] Work Phone: Start: 04-06-2022 Wound care [facility] Work Phone: Start: 04-06-2022 [facility] Work Phone: Start: 04-06-2022 Verification routine [facility] Work Phone: Start: 04-06-2022 Admission procedure [facility] Work Phone: Start: 04-06-2022 End: 04-07-2022 [facility] Work Phone: Start: 04-06-2022 Patient referral to dietitian [facility] Work Phone: Start: 04-05-2022 Assay of lactate ASSAY OF LACTIC ACID [facility] Work Phone: Start: 04-05-2022 Basic metabolic panel calcium total METABOLIC PANEL TOTAL CA [facility] Work Phone: Start: 04-05-2022 Blood count complete auto&auto difrntl wbc COMPLETE CBC W/AUTO DIFF WBC [facility] Work Phone: Start: 04-05-2022 Culture bacterial blood aerobic w/id isolates BLOOD CULTURE FOR BACTERIA [facility] Work Phone: Start: 04-05-2022 Emergency department visit moderate severity EMERGENCY DEPT VISIT [facility] Work Phone: Start: 04-05-2022 Iv infusion ther proph addl sequential to 1 hr TX/PROPH/DG ADDL SEQ IV INF [facility] Work Phone: Start: 04-05-2022 Iv infusion therapy prophylaxis/dx ea hour THER/PROPH/DIAG IV INF ADDON [facility] Work Phone: Start: 04-05-2022 Iv infusion therapy/prophylaxis /dx 1st to 1 hr [facility] Start: 04-05-2022 Radex foot complete minimum 3 views X-RAY EXAM OF FOOT [facility] Work Phone: Start: 04-05-2022 End: 04-05-2022 Blood culture [facility] Work Phone: Start: 03-23-2022 End: 04-06-2022 SARS-CoV-2 (COVID-19) RNA [Presence] in Respiratory specimen by REBECCA with probe detection 2019 CORONAVIRUS Microbiology Routine Acute cough Mild intermittent asthmatic bronchitis without complication Expected: 03/23/2022, Expires: 04/06/2022 [facility] Work Phone: Comment on above: Expected: 03/23/2022, Expires: Start: 03-12-2022 Influenza vaccination INFLUENZA (#1) [facility] Start: 01-30-2022 Celiac disease screen [facility] Work Phone: Start: 01-30-2022 Immunoglobulin measurement [facility] Work Phone: Start: 01-30-2022 Serum immunofixation [facility] Work Phone: Start: 01-30-2022 Vitamin B12 measurement [facility] Work Phone: Start: 01-30-2022 [facility] Work Phone: Start: 01-28-2022 HPV TESTING HPV TESTING [facility] Start: 01-28-2022 Screening for malignant neoplasm of cervix [facility] Start: 08-25-2021 COVID-19 VACCINE (2 - Moderna series) COVID-19 VACCINE (2 - Moderna series) [facility] Start: 03-10-2020 3 comp foot exam completed DIABETIC FOOT EXAM [facility] Start: 03-10-2020 ANNUAL PCP TEAM CHRONIC DISEASE VISIT ANNUAL PCP TEAM CHRONIC DISEASE VISIT [facility] Start: 03-10-2020 Diabetic foot examination Diabetic Foot Exam [facility] Start: 05-03-2018 PAP TESTING PAP TESTING [facility] Start: 05-03-2018 Screening for malignant neoplasm of cervix Pap Testing [facility] Start: 05-03-2016 Screening for malignant neoplasm of cervix Cervical Cancer Screening [facility] Start: 06-07-2014 Hepatitis B surface antibody level LDL CHOLESTEROL [facility] Start: 04-12-2014 Hepatitis B screening URINE ALBUMIN:CREATININE RATIO [facility] Start: 03-31-2014 Glaucoma screening Dilated Retinal Exam [facility] Start: 03-31-2014 Hepatitis C antibody, confirmatory test DILATED RETINAL EXAM [facility] Start: 03-06-2014 PNEUMOCOCCAL (2 - PCV) PNEUMOCOCCAL (2 - PCV) [facility] Start: 03-06-2014 Pneumococcal vaccination [facility] Start: 03-06-2014 Pneumococcal Vaccine: Pediatrics (0 to 5 Years) and At-Risk Patients (6 to 64 Years) (2 - PCV) Pneumococcal Vaccine: Pediatrics (0 to 5 Years) and At-Risk Patients (6 to 64 Years) (2 - PCV) [facility] Start: 01-28-2013 Screening for malignant neoplasm of cervix Pap Smear [facility] Start: 01-28-2011 DTaP/Tdap/Td Vaccines (1 - Tdap) DTaP/Tdap/Td Vaccines (1 - Tdap) [facility] Start: 01-28-2011 HEPATITIS B (1 of 3 - Risk 3-dose series) HEPATITIS B (1 of 3 - Risk 3-dose series) [facility] Start: 01-28-2011 Hepatitis B Vaccine (1 of 3 - 19+ 3-dose series) Hepatitis B Vaccine (1 of 3 - 19+ 3-dose series) [facility] Start: 01-28-2011 Urine microalbumin profile [facility] Start: 01-28-2010 HEPATITIS C SCREENING HEPATITIS C SCREENING [facility] Start: 01-28-2010 Hepatitis C screening Hepatitis C Screening [facility] Start: 01-28-2010 HIV SCREENING HIV SCREENING [facility] Start: 01-28-2010 HIV screening HIV Screening [facility] Start: 2004 Adult depression screening assessment DEPRESSION SCREENING [facility] Start: 01-28-2002 Diabetic foot examination Diabetes: Foot Exam [facility] Start: 01-28-2002 Glaucoma screening Diabetes: Retinopathy Screening [facility] Start: 01-28-2002 Preventive dental service Diabetes: Dental Exam [facility] Start: 01-28-1993 MMR Vaccines (1 of 1 - Standard series) MMR Vaccines (1 of 1 - Standard series) [facility] Start: 01-28-1993 Varicella vaccination Varicella Vaccines (1 of 2 - 2-dose childhood series) [facility] Start: 1992 COVID-19 VACCINE (#1) COVID-19 VACCINE (#1) [facility] Start: 1992 Hemoglobin A1c measurement Diabetes: Hemoglobin A1C [facility] Start: 1992 HEPATITIS B (1 of 3 - 3-dose series) HEPATITIS B (1 of 3 - 3-dose series) [facility] Start: 1992 Hepatitis B Vaccine (1 of 3 - 3-dose series) Hepatitis B Vaccine (1 of 3 - 3-dose series) [facility] Start: 1992 Hepatitis B Vaccines (1 of 3 - 3-dose series) Hepatitis B Vaccines (1 of 3 - 3-dose series) [facility] Start: 1992 HIV screening HIV Screening [facility] Start: 1992 Lipid panel Lipid Panel [facility] Acetone [Presence] i n Serum or Plasma [facility] Acid fast bacilli culture [facility] Work Phone: Acid fast bacilli culture [facility] Alanine aminotransfe rase [Enzymatic activity/volume] in Serum or Plasma [facility] Alanine aminotransfe rase [Enzymatic activity/volume] in Serum or Plasma [facility] Alanine aminotransfe rase [Enzymatic activity/volume] in Serum or Plasma [facility] Alanine aminotransfe rase [Enzymatic activity/volume] in Serum or Plasma [facility] Alanine aminotransfe rase [Enzymatic activity/volume] in Serum or Plasma [facility] Albumin [Mass/volume ] in Serum or Plasma [facility] Albumin [Mass/volume ] in Serum or Plasma [facility] Albumin [Mass/volume ] in Serum or Plasma [facility] Albumin [Mass/volume ] in Serum or Plasma [facility] Albumin [Mass/volume ] in Serum or Plasma [facility] Albumin [Moles/volum e] in Serum or Plasma [facility] Work Phone: Albumin/Globulin ratio [facility] Work Phone: Alkaline phosphatase [Enzymatic activity/volume] in Serum or Plasma [facility] Alkaline phosphatase [Enzymatic activity/volume] in Serum or Plasma [facility] Alkaline phosphatase [Enzymatic activity/volume] in Serum or Plasma [facility] Alkaline phosphatase [Enzymatic activity/volume] in Serum or Plasma [facility] Alkaline phosphatase [Enzymatic activity/volume] in Serum or Plasma [facility] Anion gap measurement [facility] Work Phone: Anion gap measurement [facility] Anion gap measurement [facility] Anion gap measurement [facility] Anion gap measurement [facility] Anion gap measurement [facility] Anion gap measurement [facility] Antibody to lupus La protein measurement [facility] Work Phone: Antibody to SS-A measurement [facility] Work Phone: Aspartate aminotrans ferase [Enzymatic activity/volume] in Serum or Plasma [facility] Aspartate aminotrans ferase [Enzymatic activity/volume] in Serum or Plasma [facility] Aspartate aminotrans ferase [Enzymatic activity/volume] in Serum or Plasma [facility] Aspartate aminotrans ferase [Enzymatic activity/volume] in Serum or Plasma [facility] Aspartate aminotrans ferase [Enzymatic activity/volume] in Serum or Plasma [facility] Bacteria identified in Blood by Culture Blood Culture [facility] Bacteria identified in Unspecified specimen by Anaerobe culture [facility] Work Phone: Bacteria identified in Unspecified specimen by Anaerobe culture [facility] Bacteria identified in Urine by Culture Urine Culture [facility] Bilirubin measurement, urine [facility] Bilirubin measurement, urine [facility] Bilirubin, total measurement [facility] Bilirubin, total measurement [facility] Bilirubin, total measurement [facility] Bilirubin, total measurement [facility] Bilirubin, total measurement [facility] Bilirubin.direct [Mass/volume] in Serum or Plasma [facility] Blood culture [facility] Work Phone: BUN/Creatinine ratio [facility] Work Phone: BUN/Creatinine ratio [facility] BUN/Creatinine ratio [facility] BUN/Creatinine ratio [facility] BUN/Creatinine ratio [facility] BUN/Creatinine ratio [facility] BUN/Creatinine ratio [facility] Calcium [Mass/volume ] in Serum or Plasma [facility] Work Phone: Calcium [Mass/volume ] in Serum or Plasma [facility] Calcium [Mass/volume ] in Serum or Plasma [facility] Calcium [Mass/volume ] in Serum or Plasma [facility] Calcium [Mass/volume ] in Serum or Plasma [facility] Calcium [Mass/volume ] in Serum or Plasma [facility] Calcium [Mass/volume ] in Serum or Plasma [facility] Carbon dioxide, tota l [Moles/volume] in Serum or Plasma [facility] Work Phone: Carbon dioxide, tota l [Moles/volume] in Serum or Plasma [facility] Carbon dioxide, tota l [Moles/volume] in Serum or Plasma [facility] Carbon dioxide, tota l [Moles/volume] in Serum or Plasma [facility] Carbon dioxide, tota l [Moles/volume] in Serum or Plasma [facility] Carbon dioxide, tota l [Moles/volume] in Serum or Plasma [facility] Carbon dioxide, tota l [Moles/volume] in Serum or Plasma [facility] CBC W Auto Different ial panel - Blood [facility] Centromere protein B Ab [Units/volume] in Serum [facility] Work Phone: Chloride [Moles/volu me] in Serum or Plasma [facility] Work Phone: Chloride [Moles/volu me] in Serum or Plasma [facility] Chloride [Moles/volu me] in Serum or Plasma [facility] Chloride [Moles/volu me] in Serum or Plasma [facility] Chloride [Moles/volu me] in Serum or Plasma [facility] Chloride [Moles/volu me] in Serum or Plasma [facility] Chloride [Moles/volu me] in Serum or Plasma [facility] Choriogonadotropin.b eta subunit ( test) [Presence] in Serum or Plasma [facility] Chromatin Ab [Units/ volume] in Serum or Plasma [facility] - Serum or Plasma [facility] Creatinine [Moles/vo lume] in Serum or Plasma [facility] Work Phone: Creatinine [Moles/vo lume] in Serum or Plasma [facility] Creatinine [Moles/vo lume] in Serum or Plasma [facility] Creatinine [Moles/vo lume] in Serum or Plasma [facility] Creatinine [Moles/vo lume] in Serum or Plasma [facility] Creatinine [Moles/vo lume] in Serum or Plasma [facility] Creatinine [Moles/vo lume] in Serum or Plasma [facility] DNA double strand Ab [Units/volume] in Serum [facility] Work Phone: Electrophoresis: [id number] [facility] Work Phone: Electrophoresis: gabriella ma globulin [facility] Work Phone: Erythrocyte sediment ation rate [facility] Globulin measurement [facility] Work Phone: Glucose [Mass/volume ] in Serum or Plasma [facility] Work Phone: Glucose [Mass/volume ] in Serum or Plasma [facility] Glucose [Mass/volume ] in Serum or Plasma [facility] Glucose [Mass/volume ] in Serum or Plasma [facility] Glucose [Mass/volume ] in Serum or Plasma [facility] Glucose [Mass/volume ] in Serum or Plasma [facility] Glucose [Mass/volume ] in Serum or Plasma [facility] Hematocrit [Volume F raction] of Blood [facility] Work Phone: Hematocrit [Volume F raction] of Blood [facility] Hematocrit [Volume F raction] of Blood [facility] Hematocrit [Volume F raction] of Blood [facility] Hematocrit [Volume F raction] of Blood [facility] Hematocrit [Volume F raction] of Blood [facility] Hemoglobin [Mass/vol ume] in Blood [facility] Work Phone: Hemoglobin [Mass/vol ume] in Blood [facility] Hemoglobin [Mass/vol ume] in Blood [facility] Hemoglobin [Mass/vol ume] in Blood [facility] Hemoglobin [Mass/vol ume] in Blood [facility] Hemoglobin [Mass/vol ume] in Blood [facility] Hemoglobin [Presence ] in Urine [facility] Hemoglobin [Presence ] in Urine [facility] IgA [Mass/volume] in Serum or Plasma [facility] Work Phone: IgE [Units/volume] i n Serum or Plasma [facility] Work Phone: IgG [Mass/volume] in Serum or Plasma [facility] Work Phone: IgM [Mass/volume] in Serum or Plasma [facility] Work Phone: Neva-1 extractable nuc lear Ab [Units/volume] in Serum [facility] Work Phone: Lactic acid measurement [facility] Work Phone: Leukocytes [#/volume ] in Blood [facility] Work Phone: Leukocytes [#/volume ] in Blood [facility] Leukocytes [#/volume ] in Blood [facility] Leukocytes [#/volume ] in Blood [facility] Leukocytes [#/volume ] in Blood [facility] Leukocytes [#/volume ] in Blood [facility] Mean corpuscular hem oglobin concentration determination [facility] Work Phone: Mean corpuscular hem oglobin concentration determination [facility] Mean corpuscular hem oglobin concentration determination [facility] Mean corpuscular hem oglobin concentration determination [facility] Mean corpuscular hem oglobin concentration determination [facility] Mean corpuscular hem oglobin concentration determination [facility] Mean corpuscular hem oglobin determination [facility] Work Phone: Mean corpuscular hem oglobin determination [facility] Mean corpuscular hem oglobin determination [facility] Mean corpuscular hem oglobin determination [facility] Mean corpuscular hem oglobin determination [facility] Mean corpuscular hem oglobin determination [facility] Measurement of immun oglobulin A in serum specimen [facility] Work Phone: Measurement of keton es in urine using dipstick [facility] Measurement of keton es in urine using dipstick [facility] Measurement of renal function [facility] Work Phone: Measurement of renal function [facility] Measurement of renal function [facility] Measurement of renal function [facility] Measurement of renal function [facility] Measurement of renal function [facility] Measurement of renal function [facility] Microbial culture, routine Wound Culture [facility] Work Phone: Microscopic urinalysis [facility] Work Phone: Microscopic urinalysis [facility] Microscopic urinalysis [facility] Mycobacterium sp marko ntified in Unspecified specimen by Organism specific culture [facility] Work Phone: Mycobacterium sp marko ntified in Unspecified specimen by Organism specific culture [facility] Work [facility]: Neutrophil count [facility] Neutrophil count [facility] Neutrophil count [facility] Neutrophil count [facility] Neutrophil count [facility] Neutrophil cytoplasm ic Ab.classic [Units/volume] in Serum [facility] Work Phone: Neutrophil percent differential count [facility] Work Phone: Neutrophil percent differential count [facility] Neutrophil percent differential count [facility] Neutrophil percent differential count [facility] Neutrophil percent differential count [facility] Neutrophil percent differential count [facility] End: 03-31-2024 NM Stomach Views for gastric emptying solid phase W radionuclide PO NM GASTRIC EMPTYING SOLID Radiology Routine Nausea 1 Occurrences starting 03/02/2023 until 03/31/2024 [facility] Work Phone: Comment on above: 1 Occurrences starting 03/02/2023 until 03/31/2024 Organism count, micr oscopic method [facility] Work Phone: P-ANCA measurement [facility] Work Phone: Patient Education [facility] Work Phone: [facility] referral [facility] Work Phone: pH of Urine [facility] pH of Urine [facility] Platelets [#/volume] in Blood [facility] Work Phone: Platelets [#/volume] in Blood [facility] Platelets [#/volume] in Blood [facility] Platelets [#/volume] in Blood [facility] Platelets [#/volume] in Blood [facility] Platelets [#/volume] in Blood [facility] Potassium [Moles/vol ume] in Serum or Plasma [facility] Work Phone: Potassium [Moles/vol ume] in Serum or Plasma [facility] Potassium [Moles/vol ume] in Serum or Plasma [facility] Potassium [Moles/vol ume] in Serum or Plasma [facility] Potassium [Moles/vol ume] in Serum or Plasma [facility] Potassium [Moles/vol ume] in Serum or Plasma [facility] Potassium [Moles/vol ume] in Serum or Plasma [facility] Protein electrophore sis panel - Serum or Plasma [facility] Work Phone: Radionuclide gastric emptying study [facility] Red blood cell count [facility] Work Phone: Red blood cell count [facility] Red blood cell count [facility] Red blood cell count [facility] Red blood cell count [facility] Red blood cell count [facility] Red cell distributio n width determination [facility] Work Phone: Red cell distributio n width determination [facility] Red cell distributio n width determination [facility] Red cell distributio n width determination [facility] Red cell distributio n width determination [facility] Red cell distributio n width determination [facility] SCL-70 extractable n uclear Ab [Units/volume] in Serum by Immunoassay [facility] Work Phone: Serum protein electrophoresis [facility] Work Phone: Jang extractable nu clear Ab [Presence] in Serum [facility] Work Phone: Sodium [Moles/volume ] in Serum or Plasma [facility] Work Phone: Sodium [Moles/volume ] in Serum or Plasma [facility] Sodium [Moles/volume ] in Serum or Plasma [facility] Sodium [Moles/volume ] in Serum or Plasma [facility] Sodium [Moles/volume ] in Serum or Plasma [facility] Sodium [Moles/volume ] in Serum or Plasma [facility] Sodium [Moles/volume ] in Serum or Plasma [facility] Specific gravity of Urine [facility] Specific gravity of Urine [facility] Tissue transglutamin ase IgA Ab [Units/volume] in Serum [facility] Work Phone: Total protein measurement [facility] Total protein measurement [facility] Total protein measurement [facility] Total protein measurement [facility] Total protein measurement [facility] Urea nitrogen [Mass/ volume] in Serum or Plasma [facility] Work Phone: Urea nitrogen [Mass/ volume] in Serum or Plasma [facility] Urea nitrogen [Mass/ volume] in Serum or Plasma [facility] Urea nitrogen [Mass/ volume] in Serum or Plasma [facility] Urea nitrogen [Mass/ volume] in Serum or Plasma [facility] Urea nitrogen [Mass/ volume] in Serum or Plasma [facility] Urea nitrogen [Mass/ volume] in Serum or Plasma [facility] Urinalysis, blood, qualitative [facility] Work Phone: Urinalysis, blood, qualitative [facility] Urinalysis, blood, qualitative [facility] Urine dipstick for glucose [facility] Urine dipstick for glucose [facility] Urine dipstick for l eukocyte esterase [facility] Urine dipstick for l eukocyte esterase [facility] Urine dipstick for nitrite W [facility] Urine dipstick for nitrite W [facility] Urine dipstick for protein [facility] Urine dipstick for protein [facility] Urine examination [facility] Urine examination [facility] Urine microscopy: ep ithelial cells [facility] Work Phone: Urine microscopy: ep ithelial cells [facility] Urine microscopy: ep ithelial cells [facility] Urine Microscopy: white cells [facility] Urine Microscopy: white cells [facility] Urobilinogen [Presen ce] in Urine [facility] Urobilinogen [Presen ce] in Urine [facility] Vancomycin [Mass/vol ume] in Serum or Plasma --trough [facility] Work Phone: White blood cell count [facility] Work Phone: [facility] Immunizations Immunization Date Immunization Notes Care Provider Gabi perrin 06-30-2021 Covid (Moderna) [facility] Work Phone: [facility] 04-13-2013 influenza virus vacc ine, unspecified formulation Alyssa Jaime 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 2021 Medicaid [id number] 1990 Unknown [id number]1 1990 Unknown [id number] 2.16.840.1.766247.3.579.2.651 1990 Unknown [id number] 2..840.1.879360.3.579.2.627 1990 Unknown [id number] 2.16.840.1.079725.3.579.2.627 Unknown [id number] 2.840.1.141334.3.579.2.462 Unknown [id number] 2.840.1.474074.3.579.2.462 Unknown [id number] 2.840.1.807787.3.579.2.462 Unknown [id number] 2.840.1.350225.3.579.2.462 Unknown [id number] 2.840.1.846313.3.579.2.462 Unknown [id number] 2.16840.1.443577.3.579.2.462 Unknown [id number] 2.16840.1.390720.3.579.2.462 Unknown [id number] 2.16840.1.225135.3.579.2.462 Unknown [id number] 2.16840.1.122018.3.579.2.462 Unknown [id number] 2.16840.1.422829.3.579.2.462 Unknown [id number] 2.16.840.1.857654.3.579.2.462 Unknown [id number] 2.16.840.1.519937.3.579.2.462 Unknown [id number] 2.16840.1.364045.3.579.2.462 Unknown [id number] 2.16.840.1.330536.3.579.2.462 Unknown [id number] 2.16.840.1.215327.3.579.2.462 Unknown [id number] 2.16.840.1.777649.3.579.2.462 Unknown [id number] 2.16.840.1.161142.3.579.2.462 Unknown [id number] 2.16.840.1.062643.3.579.2.462 Social History Date Type Detail Facility [facility] Work Phone: Start: 10-24-2021 End: 06-27-2023 Tobacco smoking status IDIS Unknown if ever smoked [facility] Start: 1990 Sex Assigned At Female W [facility] Start: 03-03-2013 End: 11-25-2024 Tobacco smoking status NHIS Smokes tobacco daily [facility] Work Phone: History of tobacco use Cigarette Smoker [facility] Start: 05-15-2021 End: 02-02-2022 Alcohol intake Current drinker of alcohol (finding) [facility] Start: 05-03-2013 History SDOH Alcohol Comment Seldom [facility] Start: 1990 Sex Assigned At Not on file C [facility] Start: 04-15-2021 End: 01-24-2023 Exposure to SARS-CoV-2 (event) Not sure [facility] Work Phone: Start: 03-03-2013 End: 02-10-2023 Cigarettes smoked current (pack per day) - Reported 0.5 [facility] Start: 03-03-2013 End: 06-26-2024 Tobacco use and exposure Smokeless tobacco non-user [facility] Start: 01-10-2023 Tobacco smoking status Smoker (humberto caban) [facility] Start: 01-24-2023 End: 02-10-2023 Alcohol Use Disorder Identification Test - Consumption [AUDIT-C] [facility] How often to you hav e a drink containing alcohol? Monthly or less [facility] How many standard dr inks containing alcohol do you have on a typical day? 1 or 2 [facility] How often do you hav e 6 or more drinks on 1 occasion? Less than monthly [facility] Start: 01-24-2023 Alcohol Comment occ. [facility] National Score (1-10 0), lower number is lower risk 92 [facility] Work Phone: Start: 02-19-2023 End: 07-03-2024 Alcohol intake Ex-drinker (finding) [facility] Start: 02-18-2023 Alcohol Comment rare [facility] (I/We) worried wheana er (my/our) food would run out before (I/we) got money to buy more. Never true [facility] Work Phone: In the past 12 month s, was there a time when you were not able to pay the mortgage or rent on time? No [facility] Work Phone: Start: 10-19-2024 End: 11-01-2024 Sex Female (finding) [facility] NEGATED: Highlighted row [facility] Medical Equipment Procedure Code Equipment Code Equipment Origin al Text Equipment Identifier Dates Repair, tendon, Achilles BIOSKIN, 2 X 4 FDA Start: 12-24-2023 Repair, tendon, Achilles FIBERTAPE FDA Start: 12-24-2023 Repair, tendon, Achilles SUTURETAPE,FIBER LOOP FDA Start: 12-24-2023 Repair, tendon, Achilles Aria Citrefix Xpress System FDA Start: 12-24-2023 Repair, tendon, Achilles Buckingham Citrefix Xpress System FDA Start: 12-24-2023 Repair, tendon, Achilles VIAFLOW, 1CC FDA Start: 12-24-2023 Repair, tendon, Achilles Guevara Graft Jacket Now Standard FDA Start: 12-24-2023 Repair, tendon, Achilles [id number] FDA Start: 12-24-2023 Repair, tendon, Achilles BIOSKIN, 2 X 4 FDA Start: 12-24-2023 Repair, tendon, Achilles FIBERTAPE FDA Start: 12-24-2023 Repair, tendon, Achilles SUTURETAPE,FIBER LOOP FDA Start: 12-24-2023 Repair, tendon, Achilles Buckingham Citrefix Xpress System FDA Start: 12-24-2023 Repair, tendon, Achilles Aria Citrefix Xpress System FDA Start: 12-24-2023 Repair, tendon, Achilles VIAFLOW, 1CC FDA Start: 12-24-2023 Repair, tendon, Achilles Guevara Graft Jacket Now Standard FDA Start: 12-24-2023 Repair, tendon, Achilles BIOSKIN, 2 X 4 FDA Start: 12-24-2023 Repair, tendon, Achilles FIBERTAPE FDA Start: 12-24-2023 Repair, tendon, Achilles SUTURETAPE,FIBER LOOP FDA Start: 12-24-2023 Repair, tendon, Achilles Buckingham Citrefix Xpress System FDA Start: 12-24-2023 Repair, tendon, Achilles Aria Citrefix Xpress System FDA Start: 12-24-2023 Repair, tendon, Achilles VIAFLOW, 1CC FDA Start: 12-24-2023 Repair, tendon, Achilles Guevara Graft Jacket Now Standard FDA Start: 12-24-2023 Repair, tendon, Achilles BIOSKIN, 2 X 4 FDA Start: 12-24-2023 Repair, tendon, Achilles FIBERTAPE FDA Start: 12-24-2023 Repair, tendon, Achilles SUTURETAPE,FIBER LOOP FDA Start: 12-24-2023 Repair, tendon, Achilles Buckingham Citrefix Xpress System FDA Start: 12-24-2023 Repair, tendon, Achilles Buckingham Cit[employer]ix Xpress System FDA Start: 12-24-2023 Repair, [...] System FDA Start: 12-24-2023 Repair, tendon, Achilles Buckingham Cit[employer]ix Xpress System FDA Start: 12-24-2023 Repair, tendon, Achilles VIAFLOW, 1CC FDA Start: 12-24-2023 Repair, tendon, Achilles Guevara Graft Jacket Now Standard FDA Start: 12-24-2023 Repair, tendon, Achilles BIOSKIN, 2 X 4 FDA Start: 12-24-2023 Repair, tendon, Achilles FIBERTAPE FDA Start: 12-24-2023 Repair, tendon, Achilles SUTURETAPE,FIBER LOOP FDA Start: 12-24-2023 Repair, tendon, Achilles Aria Citrefix Xpress System FDA Start: 12-24-2023 Repair, tendon, Achilles Buckingham Cit[employer]ix Xpress System FDA Start: 12-24-2023 Repair, tendon, Achilles VIAFLOW, 1CC FDA Start: 12-24-2023 Repair, tendon, Achilles Guevara Graft Jacket Now Standard FDA Start: 12-24-2023 Incision and drainage, abscess DRESSING,SURGICEL 4x8 FDA Start: 07-23-2023 Incision and drainage, abscess Bone grafting [facility] [id number] FDA Start: 07-23-2023 Incision and drainage, [...] drainage, abscess DRESSING,SURGICEL 4x8 FDA Start: 07-23-2023 [id number] Start: 11-27-2013 End: 02-18-2023 Comment on above: Test blood sugar(s) 1 times daily. Dx: 250.02. Insulin: No Test blood sugar(s) 1 daily. Dx: 250.02. 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, Laundry, Meal preparation, Personal ADL, Shopping [facility] 02-11-2023 Functional Status Identified as high risk, Fall ID band on, Door open, Room check performed [facility] 02-11-2023 Functional Status [facility] 02-11-2023 Functional Status [facility] 02-11-2023 Functional Status Patient refused [facility] 02-10-2023 Functional Status [facility] 01-15-2023 Functional status Up ad nella [facility] Work Phone: 01-10-2023 Functional Status Independent [facility] 01-10-2023 Functional Status Standard Safet y Call device within reach, Bed in low position, Wheels locked, Safety level maintained [facility] 08-15-2022 Functional status Ambulates [facility] Work Phone: 06-29-2022 Functional status Ambulates;Up a d nella;Bedside Commode [facility] Work Phone: 06-25-2022 Functional status Ambulates;Up a d nella;Bathroom Privilege [facility] Work Phone: 04-09-2022 Functional status Bedside Commode [facility] Work Phone: Mental Status Date Assessment Result Facility 11-28-2024 Cognitive function Voice/Name [facility] Work Phone: 07-23-2023 Cognitive function Voice/Name [facility] Work Phone: 05-08-2023 Cognitive function Voice/Name [facility] Work Phone: 02-11-2023 Mental Status Oriented x 4 [facility] 02-11-2023 Mental Status [facility] 02-10-2023 Mental Status [facility] 01-14-2023 Cognitive function Appropriate;Cooperativ e [facility] Work Phone: 01-10-2023 Mental Status Orientation Oriented x 4 [facility] 08-15-2022 Cognitive function Voice/Name [facility] Work Phone: 08-12-2022 Cognitive function Level Of Cons ciousness Awake;Alert;Appropriate [facility] Work Phone: 06-29-2022 Cognitive function Voice/Name [facility] Work Phone: 06-25-2022 Cognitive function Voice/Name [facility] Work Phone: 04-09-2022 Cognitive function Voice/Name [facility] Work Phone: Clinical Notes 04-28-2013 to 12-25-2024 Note Date & Type Note Facility 12-25-2024 Radiology Diagnostic study note [facility] Imaging Services [address] [place] [address] Abdomen Limited MR#: [id number] Acct: [id number] Name: GIVENSGHISLAINE Rep #: [id number] : 1990 F 34 From: Yamila Mcginnis MD PCP: BROOKLYN Warren NP-C Status: REG CLI Study:Abdomen Limited Date of Exam: 12/10 01/03 Exam# [id number] Ordering Dr: Nayana Peter PROCEDURE: ABDOMEN LIMITED [...] of cholelithiasis or acute cholecystitis. [facility] CC: BROOKLYN Solorzano; MIGUEL A South ~ Lye Bath Operator: Signed [facility] 11-28-2024 Discharge summary [facility] 11-28-2024 Note [facility] Medical Records Department [address] [place] [address] Discharge Summary 11/28/24 1203 MR#: [id number] Acct: [id number] Name: GHISLAINE GIVENS Rep #: [id number] : 1990 34 From: Gale Lr DO PCP: BROOKLYN Warren NP-C Status:ADM IN Location: [place]3 [id number] Providers Date of Admission: 11/25/24 Date of [...] who presented to the emergency department at [facility] on 11/25/2024 with a chief complaint [...] care with a (more content not included)... [facility] 11-28-2024 Progress note Note Date/Time November 28, 2024 8:41a [facility] Medical Records Department [address] [place] [address] Progress Note - Surgery 11/28/24756 MR#: [id number] Acct: [id number] Name: GHISLAINE GIVENS Rep #:[id number] : 1990 34 From: Clare SIMONC PCP: BROOKLYN Warren, SURFACE GRINDER TENDER-C Statu s:ADM IN Location: MS3 NY690-5 Subjective Subjective Patient was walking the hallway [...] (Auto) 49.8, Lymph % (Auto) 43.0 H, [place] % (Auto) 5.3, Eos % (Auto) 0.5, [...] as compared to prior study. Reading Location: [facility] Physical Exam GI GI Narrative: Abdomen- soft, [...] 1 week Charges/Coding Visit Charges Inpatient E&M: 92588 Subs Hosp L2 11/28/24 0841 <Electronically signed by Clare GRADY PA-C> Cosigner Signature (if applicable): CC: ~ Signed [facility] Work Phone: 1(241) 221-796705-20-2025 Progress note [facility] Medical Records Department [address] [place] [address] Progress Note - Surgery 11/28/24756 MR#: [id number] Acct: [id number] Name: GHISLAINE GIVENS Rep #:[id number] : 1990 34 From: Clare GRADY PA-C PCP: BROOKLYN Warren, SURFACE GRINDER TENDER-C Statu s:ADM IN Location: [place]3 [id number] Subjective Subjective Patient was walking the hallway [...] (Auto) 49.8, Lymph % (Auto) 43.0 H, [place] % (Auto) 5.3, Eos % (Auto) 0.5, [...] as compared to prior study. Reading Location: [facility] Physical Exam GI GI Narrative: [...] 1 week Charges/Coding Visit Charges Inpatient E&M: 70780 Subs Hosp L2 11/28/24 0841 Cosigner Signature (if applicable): CC: ~ Signed [facility]05-19-2025 Progress note Author Gale Lr [facility] Note Date/Time November 27, 2024 3:45p m [facility] Medical Records Department [address] [place] [address] Progress Note - Hospitalist 11/27/24 0759 MR#: [id number] Acct: [id number] Name: GHISALINE GIVENS Rep #:[id number] : 1990 34 From: Gale Lr DO PCP: BROOKLYN Warren, SURFACE GRINDER TENDER-C Statu s:ADM IN Location: [place] [address] Reason for Visit Reason for Visit: Abdominal [...] (Auto) 75.9 H, Lymph % (Auto) 18.1L, [place] % (Auto) 5.2, Eos % (Auto) 0.0, [...] fecal impaction of the rectum. Reading Location: [facility] Physical Exam Const alert, oriented x3 and [...] cessation discussed with patient Acute proctitis/colitis - [place] to be stercoral colitis from severe constipation [...] Full code Charges/Coding Visit Charges Inpatient E&M: 20118 Subs Hosp L2 11/27/24 1545 <Electronically signed by Gale Lr DO> Cosigner Signature (if applicable): CC: ~ Signed [facility] Work Phone: 1(306) 940-963705-19-2025 Progress note Author Clare Loo [facility] Note Date/Time November 27, 2024 2:35p m [facility] Medical Records Department [address] [place] [address] Progress Note - Surgery 11/27/24 0845 MR#: [id number] Acct: [id number] Name: GHISLAINE GIVENS Rep #:[id number] : 1990 34 From: Clare GRADY PA-C PCP: BROOKLYN Warren, SURFACE GRINDER TENDER-C Statu s:ADM IN Location: [place] [address] Subjective Subjective Patient evaluated rolling restlessly in [...] (Auto) 75.9 H, Lymph % (Auto) 18.1L, [place] % (Auto) 5.2, Eos % (Auto) 0.0, [...] this patient Charges/Coding Visit Charges Inpatient E&M: 65478 Subs Hosp L2 11/27/24 0853 <Electronically signed [...] Cosigner Signature (if applicable): cc: ~* Signed [facility] Work Phone: 1(353) 851-356705-19-2025 Progress note [facility] Medical Records Department [address] [place] [address] Progress Note - Hospitalist 11/27/24 0759 MR#: [id number] Acct: [id number] Name: GHISLAINE GIVENS Rep #:[id number] : 1990 34 From: Gale Lr DO PCP: Amy Solorzano Sara, SURFACE GRINDER TENDER-C Statu s:ADM IN Location: MS3 SO666-7 Reason for Visit Reason for Visit: Abdominal [...] (Auto) 75.9 H, Lymph % (Auto) 18.1L, [place] % (Auto) 5.2, Eos % (Auto) 0.0, [...] fecal impaction of the rectum. Reading Location: [facility] Physical Exam Const alert, oriented x3 and [...] cessation discussed with patient Acute proctitis/colitis - [place] to be stercoral colitis from severe constipation [...] Full code Charges/Coding Visit Charges Inpatient E&M: 84139 Subs Hosp L2 11/27/24 0256 Cosigner Signature (if applicable): CC: ~ Signed [facility]05-19-2025 Progress note [facility] Medical Records Department [address] [place] [address] Progress Note - Surgery 11/27/24 0845 MR#: [id number] Acct: [id number] Name: GHISLAINE GIVENS Rep #:[id number] : 1990 34 From: Clare GRADY PA-C PCP: BROOKLYN Warren, SURFACE GRINDER TENDER-C Statu s:ADM IN Location: MS3 LN548-4 Subjective Subjective Patient evaluated rolling restlessly in [...] (Auto) 75.9 H, Lymph % (Auto) 18.1L, [place] % (Auto) 5.2, Eos % (Auto) 0.0, [...] this patient Charges/Coding Visit Charges Inpatient E&M: 31294 Subs Hosp L2 11/27/24 0853 Cosigner Signature [...] Cosigner Signature (if applicable): cc: ~* Signed [facility]05-19-2025 Radiology Diagnostic study note [facility] Imaging Services [address] [place] [address] Abdomen/Pelvis WITH Contrast MR#: [id number] Acct: [id number] Name: GHISLAINE GIVENS Rep #: [id number] : 1990 F 34 From: Fortino Sadler MD PCP: Amy Solorzano, BROOKLYN, SURFACE GRINDER TENDER-C Status: ADM IN Study:Abdomen/Pelvis WITH Contrast Date of Ex am: 11/27/24 Exam# [id number] Ordering Dr: Clare Loo PA-C PROCEDURE: ABDOMEN/PELVIS [...] as compared to prior study. Reading Location: [facility]-IR-1 CC: ESCOBAR Loo; Sara Solorzano ~ Lye Bath Operator: Signed [facility]05-18-2025 Progress note Author Brenda Rao [facility] Note Date/Time November 26, 2024 9:20a m [facility] Medical Records Department [address] [place] [address] Progress Note 11/26/24 0909 MR#: [id number] Acct: [id number] Name: GHISLAINE GIVENS Rep #:[id number] : 1990 34 From: Brenda Rao MD PCP: Amy Solorzano, Sara, SURFACE GRINDER TENDER-C Statu s:ADM IN Location: TX3 PX386-8 Subjective Subjective Patient seen and examined. She [...] 79.5 H, Lymph % (Auto) 11.4 L, [place] % (Auto) 8.0, Eos % (Auto) 0.1, [...] Clarity Cloudy, Urine pH 6.0, Ur Specific [place] 1.025, Urine Protein 30 H, Urine Glucose [...] (Auto) 73.4 H, Lymph % (Auto) 19.4, [place] % (Auto) 6.2, Eos % (Auto) 0.2, [...] the colon consistent with constipation. Reading Location: [facility] Abdomen/Pelvis CT 11/25/24 11:32 IMPRESSION: 1. Fecal impaction with apparent wall thickening of the distal colon and rectumsuggesting proctitis and colitis. Clinical correlation is recommended. 2. Hepatomegaly with fatty infiltration. Reading Location: [facility] KUB X-Ray 11/26/24 08:10 IMPRESSION: Constipation with suggestion of fecal impaction of the rectum. Reading Location: [facility] Physical Exam Const alert and oriented x3 [...] Full code Charges/Coding Visit Charges Inpatient E&M: 29023 Subs Hosp L2 11/26/24 0920 <Electronically signed by Brenda Rao MD> Brenda Rao MD Cosigner Signature (if applicable): CC: ~ Signed [facility] Work Phone: 1(969) 153-645705-18-2025 History and physical note Author Brenda [facility] Note Date/Time November 26, 2024 7:54a m [facility] Medical Records Department [address] [place] [address] H&P Exam - Hospitalist 11/25/24 1324 MR#: [id number] Acct: [id number] Name: GHISLAINE GIVENS Rep #:[id number] : 1990 34 From: Brenda Rao MD PCP: BROOKLYN Warren, SURFACE GRINDER TENDER-C Statu s:ADM IN Location: [place] [address] HPI - General General Date of Admission: [...] of severe constipation with likely overflow diarrhea. [facility] Medical History (Updated 11/25/24 @ 15:05 by [...] 79.5 H, Lymph % (Auto) 11.4 L, [place] % (Auto) 8.0, Eos % (Auto) 0.1, [...] Clarity Cloudy, Urine pH 6.0, Ur Specific [place] 1.025, Urine Protein 30 H, Urine Glucose [...] the colon consistent with constipation. Reading Location: [facility] Abdomen/Pelvis CT 11/25/24 11:32 IMPRESSION: 1. Fecal impaction with apparent wall thickening of the distal colon and rectumsuggesting proctitis and colitis. Clinical correlation is recommended. 2. Hepatomegaly with fatty infiltration. Reading Location: [facility] Assessment & Plan Assessment/Plan (1) Colitis: (2) Acute proctitis: (3) Fecal impaction: PLAN: Plan # Stercoral proctocolitis with overflow diarrhea in the setting of severe constipation with fecal impaction * Admit to [facility]. Admitted with a complaint of abdominal pain. [...] Full code Charges/Coding Visit Charges Inpatient E&M: 11014 Init Hosp L2 11/26/24 0754 <Electronically signed by Brenda Rao MD> Cosigner Signature (if applicable): CC: VSSara SURFACE GRINDER TENDERKaykay Solorzano; Dr. Brenda Rao MD~ Signed [facility] Work Phone: 1(969) 991-744805-18-2025 Consult note Author Annalise Welch [facility] Note Date/Time November 26, 2024 7:47a m [facility] Medical Records Department [address] [place] [address] Consultation - Surgical 11/25/242050 MR#: [id number] Acct: [id number] Name: GHISLAINE GIVENS Rep #:[id number] : 1990 34 From: Annalise Welch MD PCP: Amy Solorzano, Sara, SURFACE GRINDER TENDER-C Statu s:ADM IN Location: [place] [address]-1 Assessment & Plan Assessment/Plan (1) Fecal impaction: (2) Acute proctitis: PLAN: Plan Discussed with patient would recommend additional enema to help soften the bowelof stool in the rectum. Along with additional ones after that. Continue IV Zosyn Discussed with patient plan to DC with laxatives. Annalise Welch M.D. Pager: [phone] [facility] [address] [place] [address], [facility], [address] [place] [address] Office: [phone] HPI Consult Data Date of Consult: 11/26/24 [...] and did have some results with it. [facility] Medical History (Updated 11/25/24 @ 15:05 by [...] 79.5 H, Lymph % (Auto) 11.4 L, [place] % (Auto) 8.0, Eos % (Auto) 0.1, [...] Clarity Cloudy, Urine pH 6.0, Ur Specific [place] 1.025, Urine Protein 30 H, Urine Glucose [...] the colon consistent with constipation. Reading Location: [facility] Abdomen/Pelvis CT 11/25/24 11:32 IMPRESSION: 1. Fecal impaction with apparent wall thickening of the distal colon and rectumsuggesting proctitis and colitis. Clinical correlation is recommended. 2. Hepatomegaly with fatty infiltration. Reading Location: [facility] Charges/Coding Visit Charges Inpatient E&M: 74646 Init Hosp L3 11/26/24 0747 <Electronically signed by Annalise Welch MD> Cosigner Signature (if applicable): CC: BROOKLYN SURFACE GRINDER TENDER-C Amy Solorzano~ Signed [facility] Work Phone: 1(266) 396-346405-18-2025 Progress note Author Annalise [facility] Note Date/Time November 26, 2024 7:47a m [facility] Medical Records Department [address] [facility] [place] [address] Progress Note - Surgery 11/26/24 0741 MR#: [id number] Acct: [id number] Name: GHISLAINE GIVENS Rep #:[id number] : 1990 34 From: Annalise Welch MD PCP: BROOKLYN Warren, SURFACE GRINDER TENDERKaykay Statu s:ADM IN Location: MS3 JP558-9 Subjective Subjective Patient states she did have [...] 79.5 H, Lymph % (Auto) 11.4 L, [place] % (Auto) 8.0, Eos % (Auto) 0.1, [...] Clarity Cloudy, Urine pH 6.0, Ur Specific [place] 1.025, Urine Protein 30 H, Urine Glucose [...] (Auto) 73.4 H, Lymph % (Auto) 19.4, [place] % (Auto) 6.2, Eos % (Auto) 0.2, [...] the colon consistent with constipation. Reading Location: [facility] Abdomen/Pelvis CT 11/25/24 11:32 IMPRESSION: 1. Fecal impaction with apparent wall thickening of the distal colon and rectumsuggesting proctitis and colitis. Clinical correlation is recommended. 2. Hepatomegaly with fatty infiltration. Reading Location: [facility] Physical Exam Const oriented x3 and no [...] improved from 27-17. Annalise Welch M.D. Pager: [phone] [facility] [address] [place] [address], [address] [place] [address] Office: [phone] Charges/Coding Multi Select Codes Visit Charges Visit Charges: 05453 Subs Hosp L2 11/26/24 0755 <Electronically signed by Annalise Welch MD> Cosigner Signature (if applicable): CC: ~ Signed [facility] Work Phone: 1(911) 756-808805-18-2025 Progress note [facility] Medical Records Department [address] [place] [address] Progress Note 11/26/24 0909 MR#: [id number] Acct: [id number] Name: GHISLAINE GIVENS Rep #:[id number] : 1990 34 From: Brenda Rao MD PCP: Amy Solorzano, Sara, SURFACE GRINDER TENDER-C Statu s:ADM IN Location: MS3 PO172-6 Subjective Subjective Patient seen and examined. She [...] 79.5 H, Lymph % (Auto) 11.4 L, [place] % (Auto) 8.0, Eos % (Auto) 0.1, [...] Clarity Cloudy, Urine pH 6.0, Ur Specific [place] 1.025, Urine Protein 30 H, Urine Glucose [...] (Auto) 73.4 H, Lymph % (Auto) 19.4, [place] % (Auto) 6.2, Eos % (Auto) 0.2, [...] the colon consistent with constipation. Reading Location: [facility] Abdomen/Pelvis CT 11/25/24 11:32 IMPRESSION: 1. Fecal impaction with apparent wall thickening of the distal colon and rectumsuggesting proctitisand colitis. Clinical correlation is recommended. 2. Hepatomegaly with fatty infiltration. Reading Location: [facility] KUB X-Ray 11/26/24 08:10 IMPRESSION: Constipation with suggestion of fecal impaction of the rectum. Reading Location: [facility] Physical Exam Const alert and oriented x3 [...] Full code Charges/Coding Visit Charges Inpatient E&M: 73774 Subs Hosp L2 11/26/24 0920 Brenda Rao MD Cosigner Signature (if applicable): CC: ~ Signed [facility]05-18-2025 Radiology Diagnostic study note [facility] Imaging Services [address] [place], [place] [id number] Abdomen Single View MR#: [id number] Acct: [id number] Name: GHISLAINE GIVENSREBA Rep #: [id number] : 1990 F 34 From: Alicja Barfield MD PCP: BROOKLYN Wraren, SURFACE GRINDER TENDER-C Status: ADM IN Study:Abdomen Single View Date of Exam: 11/26/24 Exam# [id number] Ordering Dr: Annalise Welch MD EXAM: XR Abdomen, 1 View CLINICAL INDICATION: FECAL IMPACTION-RECTUM TECHNIQUE: Frontal supine view of the abdomen/pelvis. COMPARISON: No relevant prior studies available. FINDINGS: GASTROINTESTINAL TRACT: Constipation with suggestion of fecal impaction of the rectum. No dilation. BONES/JOINTS: Unremarkable. No acute fracture. RAD/Abdomen Single View IMPRESSION: Constipation with suggestion of fecal impaction of the rectum. Reading Location: [facility] CC: [facility] SURFACE GRINDER TENDER-C Amy Solorzano; Dr. Annalise Welch MD ~ Lye Bath Operator: Signed [facility]05-18-2025 History and physical note [facility] Medical Records Department [address] [facility] [place] [address] H&P Exam - Hospitalist 11/25/24 1324 MR#: [id number] Acct: [id number] Name: GHISLAINE GIVENS VERENICE Rep #:[id number] : 1990 34 From: Brenda Rao MD PCP: Amy Solorzano, [facility], SURFACE GRINDER TENDER-C Statu s:ADM IN Location: MS3 BX617-1 HPI - General General Date of Admission: [...] of severe constipation with likely overflow diarrhea. [facility] Medical History (Updated 11/25/24 @ 15:05 by [...] 79.5 H, Lymph % (Auto) 11.4 L, [place] % (Auto) 8.0, Eos % (Auto) 0.1, [...] Clarity Cloudy, Urine pH 6.0, Ur Specific [place] 1.025, Urine Protein 30 H, Urine Glucose [...] the colon consistent with constipation. Reading Location: [facility] Abdomen/Pelvis CT 11/25/24 11:32 IMPRESSION: 1. Fecal impaction with apparent wall thickening of the distal colon and rectumsuggesting proctitisand colitis. Clinical correlation is recommended. 2. Hepatomegaly with fatty infiltration. Reading Location: [facility] Assessment & Plan Assessment/Plan (1) Colitis: (2) Acute proctitis: (3) Fecal impaction: PLAN: Plan # Stercoral proctocolitis with overflow diarrhea in the setting of severe constipation with fecal impaction * Admit to [facility]. Admitted with a complaint of abdominal pain. [...] Full code Charges/Coding Visit Charges Inpatient E&M: 45942 Init Hosp L2 11/26/24 4774 Cosigner Signature (if applicable): CC: BROOKLYN SURFACE GRINDER TENDER-C Amy Solorzano; Dr. Brenda Rao MD~ Signed [facility]05-18-2025 Consult note [facility] Medical Records Department [address] [place] [address] Consultation - Surgical 11/25/242050 MR#: [id number] Acct: [id number] Name: GHISLAINE GIVENS Rep #:[id number] : 1990 34 From: Annalise Welch MD PCP: BROOKLYN Warren, SURFACE GRINDER TENDER-C Statu s:ADM IN Location: [place] [address]-1 Assessment & Plan Assessment/Plan (1) Fecal impaction: (2) Acute proctitis: PLAN: Plan Discussed with patient would recommend additional enema to help soften the bowelof stool in the rectum. Along with additional ones after that. Continue IV Zosyn Discussed with patient plan to DC with laxatives. Annalise Welch M.D. Pager: [phone] [facility] [address] [place] [address], [facility], [address] [place] [address] Office: [phone] HPI Consult Data Date of Consult: 11/26/24 [...] ER and did havesome results with it. [facility] Medical History (Updated 11/25/24 @ 15:05 by [...] 79.5 H, Lymph % (Auto) 11.4 L, [place] % (Auto) 8.0, Eos % (Auto) 0.1, [...] Clarity Cloudy, Urine pH 6.0, Ur Specific [place] 1.025, Urine Protein 30 H, Urine Glucose [...] the colon consistent with constipation. Reading Location: [facility] Abdomen/Pelvis CT 11/25/24 11:32 IMPRESSION: 1. Fecal impaction with apparent wall thickening of the distal colon and rectumsuggesting proctitisand colitis. Clinical correlation is recommended. 2. Hepatomegaly with fatty infiltration. Reading Location: [facility] Charges/Coding Visit Charges Inpatient E&M: 15799 Init Hosp L3 11/26/24 0747 Cosigner Signature (if applicable): CC: BROOKLYN SURFACE GRINDER TENDER-C Amy Solorzano~ Signed [facility]05-18-2025 Progress note [facility] Medical Records Department [address] [place] [address] Progress Note - Surgery 11/26/24 0741 MR#: [id number] Acct: [id number] Name: GHISLAINE GIVENS Rep #:[id number] : 1990 34 From: Annalise Welch MD PCP: BROOKLYN Warren, SURFACE GRINDER TENDER-C Statu s:ADM IN Location: MS3 HD154-7 Subjective Subjective Patient states she did have [...] 79.5 H, Lymph % (Auto) 11.4 L, [place] % (Auto) 8.0, Eos % (Auto) 0.1, [...] Clarity Cloudy, Urine pH 6.0, Ur Specific [place] 1.025, Urine Protein 30 H, Urine Glucose [...] (Auto) 73.4 H, Lymph % (Auto) 19.4, [place] % (Auto) 6.2, Eos % (Auto) 0.2, [...] the colon consistent with constipation. Reading Location: [facility] Abdomen/Pelvis CT 11/25/24 11:32 IMPRESSION: 1. Fecal impaction with apparent wall thickening of the distal colon and rectumsuggesting proctitisand colitis. Clinical correlation is recommended. 2. Hepatomegaly with fatty infiltration. Reading Location: [facility] Physical Exam Const oriented x3 and no [...] improved from 27-17. Annalise Welch M.D. Pager: [phone] [facility] [address] [place] [address], [facility], [address] [place] [address] Office: [phone] Charges/Coding Multi Select Codes Visit Charges Visit Charges: 05499 Subs Hosp L2 11/26/24 0747 Cosigner Signature (if applicable): CC: ~ Signed [facility]05-17-2025 Discharge summary Author Drew Hinson [facility] Note Date/Time November 25, 2024 1:45p m [facility] Medical Records Department [address] [place] [address] Emergency Department Summary 11/25/24 MR#: [id number] Acct: [id number] Name: GHISLAINE GIVENS Rep #:[id number] : 1990 34 From: Drew Hinson MD PCP: BROOKLYN Warren, SURFACE GRINDER TENDER-C Statu s:REG ER Location: ED HPI HPI [...] 79.5 H Lymph % (Auto) 11.4 L [place] % (Auto) 8.0 Eos % (Auto) 0.1 [...] Clarity Cloudy Urine pH 6.0 Ur Specific [place] 1.025 Urine Protein 30 H Urine Glucose [...] the colon consistent with constipation. Reading Location: [facility] Abdomen/Pelvis CT 11/25/24 11:32 IMPRESSION: 1. Fecal impaction with apparent wall thickening of the distal colon and rectumsuggesting proctitis and colitis. Clinical correlation is recommended. 2. Hepatomegaly with fatty infiltration. Reading Location: [facility] Management Discussion w/another healthcare provider: Hospitalist (Dr. Rao) and Runway Model(Dr. Welch) Discharge Plan Dx/Rx/DC Orders Clinical Impression: Fecal impaction, Acute proctitis, Colitis Disposition Disposition: Acute Care Hospital [facility] What to do if you have Problems For any increased pain, shortness of breath, bleeding, nausea or vomiting, chestpain, or any unexpected problems, contact your Primary Care Provider. Call [facility] ([phone]) or report to the closest Emergency Room. Call 911 if necessary. 11/25/24 1345 <Electronically signed by Drew Hinson MD> Cosigner Signature (if applicable): CC: BROOKLYN SURFACE GRINDER TENDER-C Amy Solorzano ~ Signed [facility] Work Phone: 1(143) 480-700605-17-2025 Evaluation note* Diagnosis Onset Date Resolution Status Admit Date Abdominal pain acute November 25, 2024 1:38pm Acute proctitis acute November 25, 2024 1:38pm Colitis acute November 25, 2024 1:38pm Diabetes acute November 25, 2024 1:38pm Fecal impaction acute November 25, 2024 1:38pm Nausea & vomiting acute November 1:38pm [facility] Work Phone: 1(258) 981-557105-17-2025 Evaluation note* Diagnosis Onset Date Resolution Status [...] December 7:52am Constipation noneactive December 13 7:52am [facility] Work Phone: 1(567) 611-686405-17-2025 Discharge summary Author Drew Hinson [facility] Note Date/Time November 25, 2024 1:45p m [facility] Medical Records Department [address] [place] [address] Emergency Department Summary 11/25/24 MR#: [id number] Acct: [id number] Name: GHISLAINE GIVENS Rep #:[id number] : 1990 34 From: Drew Hinson MD PCP: BROOKLYN Warren, SURFACE GRINDER TENDER-C Statu s:REG ER Location: ED HPI HPI [...] this diagnosis. No exacerbating or alleviating factors. [facility] Medical History Wears glasses History of [...] 79.5 H Lymph % (Auto) 11.4 L [place] % (Auto) 8.0 Eos % (Auto) 0.1 [...] Clarity Cloudy Urine pH 6.0 Ur Specific [place] 1.025 Urine Protein 30 H Urine Glucose [...] the colon consistent with constipation. Reading Location: [facility] Abdomen/Pelvis CT 11/25/24 11:32 IMPRESSION: 1. Fecal impaction with apparent wall thickening of the distal colon and rectumsuggesting proctitis and colitis. Clinical correlation is recommended. 2. Hepatomegaly with fatty infiltration. Reading Location: [facility] Management Discussion w/another healthcare provider: Hospitalist (Dr. Rao) and Runway Model(Dr. Welch) Discharge Plan Dx/Rx/DC Orders Clinical Impression: Fecal impaction, Acute proctitis, Colitis Disposition Disposition: Acute Care Hospital [facility] What to do if you have Problems For any increased pain, shortness of breath, bleeding, nausea or vomiting, chestpain, or any unexpected problems, contact your Primary Care Provider. Call [facility] ([phone]) or report to the closest Emergency Room. Call 911 if necessary. 11/25/24 1345 <Electronically signed by Drew Hinson MD> Cosigner Signature (if applicable): CC: BROOKLYN Solorzano ~ Signed [facility] Work Phone: 1(373) 738-588405-17-2025 Discharge summary [facility] Medical Records Department [address] [place] [address] Emergency Department Summary 11/25/24 MR#: [id number] Acct: [id number] Name: GHISLAINE GIVENS Rep #:[id number] : 1990 34 From: Drew Hinson MD PCP: Amy Solorzano, [facility], SURFACE GRINDER TENDER-C Statu s:REG ER Location: ED HPI HPI [...] confirm this diagnosis. Noexacerbating or alleviating factors. [facility] Medical History Wears glasses History of [...] 79.5 H Lymph % (Auto) 11.4 L [place] % (Auto) 8.0 Eos % (Auto) 0.1 [...] Clarity Cloudy Urine pH 6.0 Ur Specific [place] 1.025 Urine Protein 30 H Urine Glucose [...] the colon consistent with constipation. Reading Location: [facility] Abdomen/Pelvis CT 11/25/24 11:32 IMPRESSION: 1. Fecal impaction with apparent wall thickening of the distal colon and rectumsuggesting proctitisand colitis. Clinical correlation is recommended. 2. Hepatomegaly with fatty infiltration. Reading Location: [facility] Management Discussion w/another healthcare provider: Hospitalist (Dr. Rao) and Runway Model(Dr. Welch) Discharge Plan Dx/Rx/DC Orders Clinical Impression: Fecal impaction, Acute proctitis, Colitis Disposition Disposition: Acute Care Hospital [facility] What to do if you have Problems For any increased pain, shortness of breath, bleeding, nausea or vomiting, chestpain, or any unexpected problems, contact your Primary Care Provider. Call [facility] ([phone]) or report tothe closest Emergency Room. Call 911 if necessary. 11/25/24 1345 Cosigner Signature (if applicable): CC: BROOKLYN SURFACE GRINDER TENDER-C Amy Solorzano ~ Signed [facility]05-17-2025 Radiology Diagnostic study note [facility] Imaging Services [address] [place] [address] Abdomen/Pelvis W IV Cont ONLY MR#: [id number] Acct: [id number] Name: GHISLAINE GIVENS Rep #: [id number] : 1990 F 34 From: Alicja Barfield MD PCP: BROOKLYN Warren, SURFACE GRINDER TENDER-C Status: REG ER Study:Abdomen/Pelvis W IV Cont ONLY Date of E xam: 11/25/24 Exam# [id number] Ordering Dr: Drew Hinson MD EXAM: CT [...] 2. Hepatomegaly with fatty infiltration. Reading Location: [facility] CC: [facility] SURFACE GRINDER TENDER-C Amy Solorzano; Dr. Drew Hinson MD ~ Lye Bath Operator: Signed [facility]05-17-2025 Radiology Diagnostic study note [facility] Imaging Services [address] [place], [place] [address] Acute Abdomen Inc Chest MR#: [id number] Acct: [id number] Name: GHISLAINE GIVENS Rep #: [id number] : 1990 F 34 From: Alicja Barfield MD PCP: Amy Solorzano [facility], SURFACE GRINDER TENDER-C Status: REG ER Study:Acute Abdomen Inc Chest Date of Exam: 11/25/24 Exam# [id number] Ordering Dr: Drew Hinson MD EXAM: XR [...] the colon consistent with constipation. Reading Location: [facility] CC: [facility] PATRICE Solorzano; Dr. Drew Hinson MD ~ Lye Bath Operator: Signed [facility]12-23-2024 NoteHNO ID: [id number] Author: IRAIS HANNA PA Service: ? Author Type: Physician Stamp Maker Type: Progress Notes Filed: 07/03/2024 13:13 Note Text: This note was created using [employer]. Subjective Ghislaine Givens is a 34 year [...] treatment plan were d (more content not included)...[facility]12-23-2024 History of Present illness Narrative* Irais Hnana PA - 07/03/2024 1:11 PM EST This note was created using [employer]. Subjective Ghislaine Givens is a 34 year [...] evaluation. MIGUEL A Goldman [facility] History of Present illness Narrative* Luis Mayes, [...] PATIENT PRESENTS WITH AN IMPLANTABLE OR ATTACHED DEAF/HARD OF HEARING SPECIALIST: No RADIOLOGY DEPARTMENT: General X-ray: Exam(s) Completed: Chest X-Ray PERIPHERAL IV DATA: Not applicable SIGNED BY: RT Los(R) July 03, 2024 12:58 PM documented in this encounterTri[facility]12-[facility]24 NoteHNO ID: [id number] Author: LUIS MAYES RT(Reji) Service: Radiology Author [...] PATIENT PRESENTS WITH AN IMPLANTABLE OR ATTACHED DEAF/HARD OF HEARING SPECIALIST: No RADIOLOGY DEPARTMENT: General X-ray: Exam(s) Completed: Chest X-Ray PERIPHERAL IV DATA: Not applicable SIGNED BY: RT Los(R) July 03, 2024 12:58 [facility]12-16-2024 NoteHNO ID: [id number] Author: FRANTZ AREVALO PA-C Service: ? Author Type: Physician Stamp Maker Type: Progress Notes Filed: 06/26/2024 11:03 Note Text: This note was created using [employer]. Subjective Ghislaine Givens is a 34 year [...] - ICD9: 493.90, ICD10: J45.20 MIGUEL [facility]12-16-2024 History of Present illness Narrative* Frantz Arevalo PA-C - 06/26/2024 10:55 AM EST This note was created using [employer]. Subjective Ghislaine Givens is a 34 year [...] J45.20 Frantz Arevalo PA-C documented in this encounterTri[facility]01-12-2024 Procedure [facility]12-21-2023 History of Present illness Narrative* Andres Galaviz APRN.[facility] - 07/01/2023 10:42 AM EST Images [...] ophthalmology. Appointment scheduled today 115. Andres Galaviz APRN.PUBLIC TRANSPORTATION INSPECTOR documented in this encounterTrihealth [facility]12-16-2023 Discharge summary Author Alex Christiansen [facility] June 26, 2023 6:14pm Note Date/Time June 26, 2023 12:09pm [facility] Medical Records Department [address] [place] [address] Emergency Department Summary 06/26/23 MR#: [id number] Acct: [id number] Name: GHISLAINE GIVENSREBA Rep #:[id number] : 1990 33 From: Taiwo Chen MD [...] pharmacy. She denies any other new symptoms. [facility] Medical History Anxiety Asthma Constipation Depression [...] mg rectal suppository (Dulcolax (bisacodyl)) 10 mg ME DAILY 3 days #12 ea 01/15/23 [Rx [...] % (Auto) 63.6 Lymph % (Auto) 30.6 [place] % (Auto) 4.3 Eos % (Auto) 0.2 [...] [Dulcolax (bisacodyl)] 10 mg suppository 10 mg ME DAILY 3 Days Qty: 12 0RF Rx [...] your Primary Care Provider. Call [facility] ([phone]) or report to the closest Emergency Room. [...] applicable): cc: Dr. Sophy Gibbons ~* Signed [facility] Work Phone: 1(793) 260-696110-29-2023 Progress note Author Rickey Gifford [facility] May 09, 2023 11:46am Note Date/Time May 09, 2023 7 :55am [facility] Medical Records Department [address] [place] [address] Progress Note - Hospitalist 05/09/23 0752 MR#: [id number] Acct: [id number] Name: GHISLAINE GIVENS Rep #:[id number] : 1990 33 From: Rickey Gifford DO PCP: Care Physician,No Primary Status :ADM IN Location: [place] [address] Reason for Visit Reason for Visit: Diagnoses [...] does have constipation. Also reviewing records through [facility]. Charges/Coding Visit Charges Inpatient E&M: 23791 Subs Hosp L3 05/09/23 1146 <Electronically signed by Rickey Gifford DO> Cosigner Signature (if applicable): CC: ~ Signed [facility] Work Phone: [phone]) 870-126810-29-2023 Progress note Author Abdirizak Forrest [facility] May 09, 2023 10:47am Note Date/Time May 09, 2023 1 0:19am [facility] Medical Records Department [address] [place] [address] Progress Note - Surgery 05/09/23 1018 MR#: [id number] Acct: [id number] Name: GHISLAINE GIVENS Rep #:[id number] : 1990 33 From: Abdirizak Gupta PM PCP: Care Physician,No Primary Status :ADM IN Location: [facility] QE391-3 Subjective Subjective Ms. Givens is a 33-year-old [...] Cosigner Signature (if applicable): CC: ~ Signed [facility] Work Phone: 1(377) 209-803110-28-2023 Progress note Author Rickey Gifford [facility] May 08, 2023 10:48am Note Date/Time May 08, 2023 7 :51am [facility] Medical Records Department [address] [place] [address] [place] [address] Progress Note - Hospitalist 05/08/23 0749 MR#: [id number] Acct: [id number] Name: GHISLAINE GIVENS Rep #:[id number] : 1990 33 From: Rickey Gifford DO PCP: Care Physician,No Primary Status :ADM IN Location: [facility] IU256-7 Reason for Visit Reason for Visit: Diagnoses [...] with enoxaparin. Charges/Coding Visit Charges Inpatient E&M: 85162 Subs Hosp L2 05/08/23 1048 <Electronically signed by Rickey Gifford DO> Cosigner Signature (if applicable): CC: ~ Signed [facility] Work Phone: [phone] 401-111610-28-2023 Progress note Author Abdirizak Forrest [facility] May 08, 2023 10:31am Note Date/Time May 08, 2023 9 :18am [facility] Medical Records Department [address] [place] [address] Progress Note - Surgery 05/08/23916 MR#: [id number] Acct: [id number] Name: GHISLAINE GIVENS Rep #:[id number] : 1990 33 From: Abdirizak Gupta PM PCP: Care Physician,No Primary Status :ADM IN Location: [facility] VU147-1 Subjective Subjective Mrs. Givens is a 33-year-old [...] Cosigner Signature (if applicable): CC: ~ Signed [facility] Work Phone: [phone]) 526-414810-27-2023 Procedure [facility] 05-07-2023 Progress note Author Rickey Gifford [facility] May 07, 2023 12:40pm Note Date/Time May 07, 2023 1 2:36pm [facility] Medical Records Department [address] [place] [address] Progress Note - Hospitalist 05/07/23 1229 MR#: [id number] Acct: [id number] Name: GHISLAINE GIVENS Rep #:[id number] : 1990 33 From: Rickey Gifford DO PCP: Care Physician,No Primary Status :ADM IN Location: [place] [address] Reason for Visit Reason for Visit: Diagnoses [...] her symptoms. Charges/Coding Visit Charges Inpatient E&M: 52398 Subs Hosp L2 05/07/23 1240 <Electronically signed by Rickey Gifford DO> Cosigner Signature (if applicable): CC: ~ Signed [facility] Work Phone: [phone]) 572-527810-26-2023 Consult note Author Rickey Gifford [facility] May 06, 2023 4:46pm Note Date/Time May 04, 2023 8 :30pm [facility] Medical Records Department [address] [place] [address] Pharmacokinetic/Renal -Consult 05/04/232026 MR#: [id number] Acct: [id number] Name: GHISLAINE GIVENS Rep #:[id number] : 1990 33 From: Otto enamorado PCP: Care Physician,No Primary Status :ADM IN Y Location: [facility] SD712-3 Consult Antibiotic Management Pharmacy has been consulted [...] will continue with 1000mg IV q8h per [facility] dosing protocol. Will check a trough [...] Date Rickey Gifford DO CC: ~ Signed [facility] Work Phone: [phone] 766-463810-26-2023 Consult note Author Rickey Gifford [facility] May 06, 2023 4:46pm Note Date/Time May 05, 2023 2 :05pm [facility] Medical Records Department [address] [place] [address] Pharmacokinetic/Renal -Consult 05/05/23 1404 MR#: [id number] Acct: [id number] Name: GHISLAINE GIVENS Rep #:[id number] : 1990 33 From: Gage Trejo PCP: Care Physician,No Primary Status :ADM IN Y Location: [place] [address]-1 Consult Antibiotic Management Pharmacy has been consulted to manage selected antiobiotic: Vancomycin Type of Intervention Type of Consult: Follow-up Suspected Infection Suspected Infection: Skin/Soft tissue Prior Doses of Antibiotics Prior Doses of Antibiotics Received/Current Regimen: Vancomycin 1000 mg given 05/04 @ 2242, and 05/05 @ 1323 Labs Labs: Sodium 132 mmol/L (136-145) L [...] Date Rickey Gifford DO CC: ~ Signed [facility] Work Phone: 1([phone]) 798-884810-26-2023 Progress note Author Rickey Gifford [facility] May 06, 2023 2:03pm Note Date/Time May 06, 2023 8 :47am [facility] Medical Records Department [address] [place] [address] Progress Note - Hospitalist 05/06/23 0844 MR#: [id number] Acct: [id number] Name: GHISLAINE GIVENS Rep #:[id number] : 1990 33 From: Rickey Gifford DO PCP: Care Physician,No Primary Status :ADM IN Location: [place] [address] Reason for Visit Reason for Visit: Diagnoses [...] (Auto) 40.5 L, Lymph % (Auto) 49.6H, [place] % (Auto) 8.4, Eos % (Auto) 0.3, [...] with enoxaparin. Charges/Coding Visit Charges Inpatient E&M: 51945 Subs Hosp L1 05/06/23 1403 <Electronically signed by Rickey Gifford DO> Cosigner Signature (if applicable): CC: ~ Signed [facility] Work Phone: 1([phone]) 323-858310-26-2023 Progress note Author Abdirizak Forrest [facility] May 06, 2023 8:10am Note Date/Time May 06, 2023 8 :10am [facility] Medical Records Department [address] [place] [address] Progress Note - Surgery 05/06/23 0802 MR#: [id number] Acct: [id number] Name: GHISLAINE GIVENS Rep #:[id number] : 1990 33 From: Abdirizak Gupta PM PCP: Care Physician,No Primary Status :ADM IN Location: [place] NW010-9 Subjective Subjective Ms. Givens is a 33-year-old [...] (Auto) 40.5 L, Lymph % (Auto) 49.6H, [place] % (Auto) 8.4, Eos % (Auto) 0.3, [...] 11:07 EDT Reading Location ID and State: [address] [place] [address] , Service support , Physical Exam Narrative [...] Cosigner Signature (if applicable): CC: ~ Signed [facility] Work Phone: 1(262) 417-904710-25-2023 Progress note Author Rickey Gifford [facility] May 05, 2023 1:09pm Note Date/Time May 05, 2023 7 :49am [facility] Medical Records Department [address] [place] [address] Progress Note - Hospitalist 05/05/23 0745 MR#: [id number] Acct: [id number] Name: GIVENSGHISLAINE BARBOURREBA Rep #:[id number] : 1990 33 From: Rickey Gifford DO PCP: Care Physician,No Primary Status :ADM IN Location: [place] XV838-8 Reason for Visit Reason for Visit: Diagnoses [...] 73.2 H, Lymph % (Auto) 14.9 L, [place] % (Auto) 10.2 H, Eos % (Auto) [...] % (Auto) 56.9, Lymph % (Auto) 30.9, [place] % (Auto) 11.1 H, Eos % (Auto) [...] 11:59 EDT Reading Location ID and State: [facility] / [place] , Service support , Physical Exam Const [...] with enoxaparin. Charges/Coding Visit Charges Inpatient E&M: 11586 Subs Hosp L2 05/05/23 1309 <Electronically signed by Rickey Gifford DO> Cosigner Signature (if applicable): CC: ~ Signed [facility] Work Phone: [phone]) 184-221210-25-2023 Progress note Author Abdirizak Forrest [facility] May 05, 2023 10:17am Note Date/Time May 05, 2023 8 :29am [facility] Medical Records Department [address] [facility] [place] [address] Progress Note - Surgery 05/05/23828 MR#: [id number] Acct: [id number] Name: GHISLAINE GIVENS Rep #:[id number] : 1990 33 From: Abdirizak Gupta PM PCP: Care Physician,No Primary Status :ADM IN Location: [place] QG665-6 Subjective Subjective Ms. Givens is a 33-year-old [...] 73.2 H, Lymph % (Auto) 14.9 L, [place] % (Auto) 10.2 H, Eos % (Auto) [...] % (Auto) 56.9, Lymph % (Auto) 30.9, [place] % (Auto) 11.1 H, Eos % (Auto) [...] Cosigner Signature (if applicable): CC: ~ Signed [facility] Work Phone: 1(153) 319-335510-24-2023 Consult note Author Abdirizak Frorest [facility] May 04, 2023 5:02pm Note Date/Time May 04, 2023 4 :48pm [facility] Medical Records Department [address] [place] [address] Consultation 05/04/23 1642 MR#: [id number] Acct: [id number] Name: GHISLAINE GIVENS Rep #:[id number] : 1990 33 From: Abdirizak Gupta PM PCP: Care Physician,No [place] [facility] [place] [facility] A-1 Assessment & Plan Assessment/Plan (1) Type [...] is a 33 F who presented to [facility] emergency department for concerns for worsening [...] No other pedal complaints at this time. [facility] Medical History Anxiety Asthma Constipation Depression Diabetes [...] mg rectal suppository (Dulcolax (bisacodyl)) 10 mg ME DAILY 3 days #12 ea 01/15/23 [Rx [...] 25 mg rectal suppository (Promethegan) 25 mg ME Q6H PRN PRN Nausea #6 supp 04/13/23 [...] 73.2 H, Lymph % (Auto) 14.9 L, [place] % (Auto) 10.2 H, Eos % (Auto) [...] applicable): CC: No Primary Care Physician~ Signed [facility] Work Phone: [phone]) 880-961710-24-2023 Procedure [facility] 05-04-2023 Discharge summary Author Javy Romario [facility] May 04, 2023 3:49pm Note Date/Time May 04, 2023 1 0:56am [facility] Medical Records Department [address] [facility] [place] [address] Emergency Department Summary 05/04/23 MR#: [id number] Acct: [id number] Name: GHISLAINE GIVENS Rep #:[id number] : 1990 33 From: Javy Doss DO PCP: Care Physician,No Primary Status :[facility] Location: [facility] A-1 HPI History of Present Illness Chief [...] denies any fever. Patient is a diabetic. [facility] Medical History (Updated 05/04/23 @ 13:11 [...] mg rectal suppository (Dulcolax (bisacodyl)) 10 mg ME DAILY 3 days #12 ea 01/15/23 [Rx [...] 25 mg rectal suppository (Promethegan) 25 mg ME Q6H PRN PRN Nausea #6 supp 04/13/23 [...] 73.2 H Lymph % (Auto) 14.9 L [place] % (Auto) 10.2 H Eos % (Auto) [...] Diabetes, Leukocytosis Disposition Disposition: Acute Care Hospital [facility] Discharge Date/Time: 05/04/23 15:25 What to do if you have Problems For any increased pain, shortness of breath, bleeding, nausea or vomiting, chestpain, or any unexpected problems, contact your Primary Care Provider. Call [facility] ([phone]) or report to the closest Emergency Room. Call 911 if necessary. 05/04/23 154 <Electronically signed by Javy Doss DO> Cosigner Signature (if applicable): CC: No Primary Care Physician ~ Signed [facility] Work Phone: 1(771) 564-314810-24-2023 History and physical note Author Rickey Gifford [facility] May 04, 2023 1:14pm Note Date/Time May 04, 2023 1 :13pm [facility] Medical Records Department [address] [place] [address] H&P Exam - Hospitalist 05/04/23 1309 MR#: [id number] Acct: [id number] Name: GHISLAINE GIVENS Rep #:[id number] : 1990 33 From: Rickey Gifford DO [...] Patient received vancomycin in the emergency room. [facility] Medical History (Updated 05/04/23 @ 13:11 by [...] mg rectal suppository (Dulcolax (bisacodyl)) 10 mg ME DAILY 3 days #12 ea 01/15/23 [Rx [...] 25 mg rectal suppository (Promethegan) 25 mg ME Q6H PRN PRN Nausea #6 supp 04/13/23 [...] 73.2 H, Lymph % (Auto) 14.9 L, [place] % (Auto) 10.2 H, Eos % (Auto) [...] 11:59 EDT Reading Location ID and State: [facility] / [place] , Service support , Assessment & Plan [...] with enoxaparin. Charges/Coding Visit Charges Inpatient E&M: 95812 Init Hosp L2 05/04/23 1314 <Electronically signed by Rickey Gifford DO> Cosigner Signature (if applicable): CC: Dr. Rickey Gifford DO; No Primary Care Physician~ Signed [facility] Work Phone: 1(875) 904-801110-24-2023 History and physical note Author Rickey Gifford [facility] May 04, 2023 1:14pm Note Date/Time May 04, 2023 1 :13pm [facility] Medical Records Department [address] [place] [address] H&P Exam - Hospitalist 05/04/23 1309 MR#: [id number] Acct: [id number] Name: GHISLAINE GIVENS Rep #:[id number] : 1990 33 From: Rickey Gifford DO [...] Patient received vancomycin in the emergency room. [facility] Medical History (Updated 05/04/23 @ 13:11 by [...] mg rectal suppository (Dulcolax (bisacodyl)) 10 mg ME DAILY 3 days #12 ea 01/15/23 [Rx [...] 25 mg rectal suppository (Promethegan) 25 mg ME Q6H PRN PRN Nausea #6 supp 04/13/23 [...] 73.2 H, Lymph % (Auto) 14.9 L, [place] % (Auto) 10.2 H, Eos % (Auto) [...] with enoxaparin. Charges/Coding Visit Charges Inpatient E&M: 23694 Init Hosp L2 05/04/23 1314 <Electronically signed by Rickey Gifford DO> Cosigner Signature (if applicable): CC: Dr. Rickey Gifford DO; No Primary Care Physician~ Signed [facility] Work Phone: 1(761) 544-112710-05-2023 History of Present illness Narrative* Abdirizak Peña APRN.PUBLIC TRANSPORTATION INSPECTOR - 04/15/2023 11:13 AM EDT Patient triaged at [facility]. Here today with abd pain and sob, patients crying. Breathing easy but appears in pain. O2 100% on RA. Will refer to ER, declines squad, friend to drive to ER. documented in this encounterTri[facility]09-15-2023 History of Present illness Narrative* Claritza Sierra - 03/26/2023 2:21 PM EDT POPULATION HEALTH NAVIGATION OUTREACH Action/[facility] Support: Called pt to schedule an appt in Pain Management. Lvm for pt to call [phone] for scheduling. Patient Identified by Name and : NO Outreach Outcome/Action Unable to reach patient: Left message Did you use a PCP flex slot to schedule this appointment? No Reason for Outreach Care Gap or Scheduling/Wellness visits Payer: Payor: [place] [employer] / Plan: [employer] [facility] / Product Type: Medicaid / Care Gap [...] 26, 2023 2:22 PM documented in this encounterTrihealth [facility]09-01-2023 History of Present illness Narrative* Pilar Magdaleno APRN.CNP - 03/12/2023 12:12 PM EDT Please let patient know Dr. Sun is not in network. I [facility]. documented in this encounterTrihealth [facility]08-29-2023 Miscellaneous Notes* Telephone Encounter - Milagros Cloud RN - 03/09/2023 12:35 PM EDT Boyfriend calls and not listed on chart. Requested to speak to patient. Patient requesting pain management referral be faxed to Dr. Lr. Faxed per request to [phone]. Milagros Cloud RN documented in this encounterTrihealth [facility]08-24-2023 NoteHNO ID: [id number] Author: Kelley Lopez MD Service: ? Author Type: Physician Type: Progress Notes Filed: 03/11/2023 7:18 AM Note Text: Documentation Query Based on your medical judgment of the clinical indicators outlined below, please clarify the condition: (Please type X next to your response and sign) Clinical indicators: 03.03.23 Gastroenterology note PUBLIC TRANSPORTATION INSPECTOR: Plan: Nausea with vomiting Generalized abdominal pain [...] X Other, please specify___due to psychiatric problems [facility]08-24-2023 NoteHNO ID: [id number] Author: Kelley Lopez MD Service: ? Author [...] Seen by psych and GI. Discussed with social services director/correctional case records supervisor. OK to discharge the patient. Rest of management as outpatient. I personally spent more than 30 minutes for discharge of this patient. Discussed with unit PA/PUBLIC TRANSPORTATION INSPECTOR about care plans. Recommended to see her [...] MD DATE: March 04, 2023 TIME: 11:57 [facility]08-24-2023 NoteHNO ID: [id number] Author: Cary Pino RN Service: Care Management [...] No Caregiver needed Transportation Arrangements Transportation Arrangements: [employer] and Phone #:: [place] [employer] [phone] Date of Trip: 03/04/23 Time of Trip: 1730 Type of Service: Wheelchair Is Patient Medicaid Pending?: No Was transportation financial coverage discussed with family?: Patient Ad Taker Location: [facility] Destination: Home Financial Care Management Responsibility: None [...] ED to Hosp-Admission (Current) from 03/01/2023 in [facility] Observation Unit Medical Follow-Up Appointment Specialty Psychaitry Behavior Health/Jose L Mccarthy Provider Name [facility] Address [address] [facility], [place] [address] Additional Instructions Please call for appointment to establish physician for mental health SIGNATURE: Cary Pino RN PATIENT NAME: Ghislaine Givens DATE: March 04, 2023 TIME: 11:26 AM CONTACT #: [id number] NoteHNO ID: [id number] Author: Cary Pino RN Service: Care Management [...] 04, 2023 TIME: 11:25 AM PAGER/CONTACT #: [phone] Note HNO ID: [id number] Author: Kelley Lopez MD Service: ? Author [...] Plan to discharge in AM. Discussed with social services director/correctional case records supervisor. Advance diet. Physical Examination: GENERAL: alert, no [...] MD DATE: March 03, 2023 TIME: 3:15 [facility]08-23-2023 NoteHNO ID: [id number] Author: Frida Scott APRN.PUBLIC TRANSPORTATION INSPECTOR Service: Gastroenterology Author Type: Nurse Practitioner Type: Plan of Care Filed: 03/03/2023 11:30 AM Note Text: DEPARTMENT OF GASTROENTEROLOGY AND HEPATOLOGY [facility] INPATIENT VISIT DATE AND TIME 03/03/23 11:16 [...] mild gastritis and an esophageal ulcer at [facility]. Patient presented from outpatient GI clinic [...] and re-consult as needed. SIGNATURE: Frida Scott APRN.PUBLIC TRANSPORTATION INSPECTOR PAGER/CONTACT #: For concerns during days 7a-5p, contact SURFACE GRINDER TENDER directly [phone] Please page [phone] for covering attending concernsTexas County [facility] Hospital08-22-2023 Telephone encounter Note* Telephone Encounter - Almita Kelly PA-C - 03/02/2023 2:30 PM EDT Hi, The patient needs outpatient GES for persistent nausea and vomiting once optimized. Orders placed. The patient is a Dr. Doran patient and should follow- up with him. Thanks! Almita Kelly PA-C Gastroenterology and Hepatology [facility]08-22-2023 Miscellaneous Notes* Telephone Encounter - Almita Kelly PA-C - 03/02/2023 2:30 PM EDT Hi, The patient needs outpatient GES for persistent nausea and vomiting once optimized. Orders placed. The patient is a Dr. Doran patient and should follow- up with him. Thanks! Almita Kelly PA-C Gastroenterology and Hepatology documented in this encounterTrihealth [facility]08-22-2023 History of Present illness Narrative* Claritza Sierra - 03/02/2023 1:27 PM EDT POPULATION HEALTH NAVIGATION OUTREACH Action/[place] Support: Called pt to schedule an appt [...] [employer] [employer] / Plan: [employer] [facility] / Product Type: Medicaid / Care Gap [...] 02, 2023 1:27 PM documented in this encounterTrihealth [facility]08-22-2023 NoteHNO ID: [id number] Author: Ghislaine Mancilla RN Service: ? Author Type: Registered Nurse Type: Progress Notes Filed: 03/02/2023 5:47 PM Note Text: IV access lost. X2 RN attempted to get new access with no success. AMET and NOM notified and states will come and attempt soon. SURFACE GRINDER TENDER notified via secure chat. Patient also complains of pain for second time this shift and SURFACE GRINDER TENDER notified for second time as well. States tylenol did not work when given during morning medication rounds. Patient now walking halls as she states movement helps with pain at times. Informed SURFACE GRINDER TENDER of patient calus/wound to right foot as [...] aware and MOVIPREP will be moved to slot shift supervisor to attempt at a later time. As patient states she cannot tolerate drinking. 1730 Patient ordered oral contrast dye with CT. tax map technician states patient refusing to drink oral contrast. GI made aware via secure chat but no changes to orders made at this time. Patient will be sent to room with contrast dye per tax map technician. If pt drinks contrast and can keep in her body CT asked to be called and patient will then have the scan.[facility] 03-02-2023 NoteHNO ID: [id number] Author: Cary Pino, RYNE Service: Care Management [...] Relation: Grandparent Admission Status: Inpatient Insurance Provider: [email or web address] [facility] [place] Discharge Planning requested by: Per Department Practice Potential Transition Plans Home Advance Directives Current Advance Directive: None Screw Eye Assembler Attempted to Assist with AD Completion: Yes [...] General wellness, Be able to go home [place] of Choice Explained: [place] of Choice Given: No Reason Not Given: [...] during this admission, please contact Case Management. [phone]. Uber transport will be needed once stable for discharge. HX Depression Bipolar disorder DM SIGNATURE: Cary Pino RN PATIENT NAME: Ghislaine Givens DATE: March 02, 2023 TIME: 8:46 AM CONTACT #: [id number] History of Present illness Narrative* Dewayne Doran MD - 03/01/2023 10:40 AM EDT NAME: Ghislaine Givens AGE: [age] year old Referred by: Pilar Magdaleno [address] [address] Referred for: an opinion regarding nausea and [...] Past Histories independently gathered by the clinical medical support specialist and the remaining scribed note accurately describes [...] PHYSICIAN Dewayne Doran MD documented in this encounterTri[facility] History of Present illness Narrative* Pilar Magdaleno APRN.[facility] - 02/23/2023 10:11 AM EDT Chief Complaint Patient presents with: [facility] F/U [facility] Ghislaine Givens is a 33 year [...] - CONSULT TO PAIN MGT Pilar Magdaleno APRN.PUBLIC TRANSPORTATION INSPECTOR documented in this encounterTrihealth [facility]08-08-2023 Note. MICRO - Microbiology PROCEDURE: Blood Culture [...] Locations *1: This test was performed at: [facility], [address] [place] [address], [id number]- , [facility] ([place])02-16-2023 Note. MICRO - Microbiology PROCEDURE: Blood Culture [...] Locations *1: This test was performed at: [facility], [address] [place] [address], [address] , [facility] ([place])02-11-2023 Hospital Discharge instructions Patient Education 02/11/2023 17:15:56 [...] as coffee and soda. Take and apply yqoo-huu-wszplpu and prescription medicines only as told by [...] 10/06/2017 Document Revised: 11/04/2018 Document Reviewed: 10/06/2017 [employer] Patient Education 2020 [employer]. 02/11/2023 17:15:45 Nausea, Adult, Usml-xn-Nysr Nausea, Adult Nausea is feeling sick to [...] fruit juice). ?Low-calorie sports drinks. Eat bland, uojf-gh-ybqlzo foods in small amounts as you are able, such as: ?Bananas. ?Applesauce. ?Rice. ?Low-fat (lean) meats. ?Kake. ?Crackers. Avoid drinking fluids that have a lot of sugar or caffeine in them. This includes energy drinks, sports drinks, and soda. Avoid alcohol. Avoid spicy or fatty foods. General instructions Take rrxy-ipn-ihpsknh and prescription medicines only as told by your doctor. Rest at home while you get better. Drink enough fluid to keep your pee (urine) pale yellow. Take slow and deep breaths when you feel sick to your stomach. Avoid food or things that have strong smells. Wash your hands often with soap and water. If you cannot use soap and water, use hand coil cleaner. Make sure that all people in your [...] drink what your doctor tells you. Take gesy-cnf-ooihhpt and prescription medicines only as told by [...] 06/16/2012 Document Revised: 12/06/2018 Document Reviewed: 12/06/2018 [employer] Patient Education 2020 [employer]. Follow Up Care 02/10/2023 23:24:03 With:AMY SOLORZANO APRN-PUBLIC TRANSPORTATION INSPECTOR Address: [address] [place] [phone] When:3-5 days Comments:Please call to schedule your post-hospital follow-up appointment. [facility] 08-03-2023 Note Date of Service 02/11/2023 Chief Complaint C/o generalized ABD pain, N/V, multiple recent falls. States she has not been checking her blood sugar either. States she is supposed to be using insulin for DM. History of Present Illness 33-year-old female with past medical history significant for HTN, type 2 diabetes mellitus, neuropathy, depression/anxiety, asthma, cannabis use. Patient presented to [place] emergency department on 02/10/2023 with a 1 [...] and pelvis with contrast. 01/07/2023 and 01/09/2023 [facility] ED visit 01/10/[address] [place] [address] abdomen and pelvis with contrast that showed left hydrosalpinx, mildly dilated CBD with adjacent more than expected khurram hepatis adenopathy which may be reactive. She was treated with IV fluids and antiemetics and discharged. 01/12/2023 and 01/13/2023 [facility] ED visit treated with IV fluids and antiemetics, haldol and discharged. 01/14/2023 [facility] emergency department visit. IV fluids and antiemetics given. Admitted for hypokalemia. CT abdomen and pelvis with bilateral small ovarian cysts. 01/17/2023 [facility] ED visit. CT abdomen and pelvis with contrast showed underfilling versus mucosal thickening at rectosigmoid colon. Otherwise unremarkable. 01/24 [facility] emergency department visit. Discharged with a prescription for Keflex and Reglan. No imaging done. 01/25 [facility] emergency department treated with IV fluids and antiemetics. 727: She was seen in urgent care and advised to go to the emergency department. [facility] ED visit treated with IV fluids and antiemetics and discharged. She was seen at [facility] on 02/08. She had CT of [...] by MARTI WEBB on 02/11/2023 07:14 PM [facility]08-03-2023 Note Discharge Instructions Thank you for allowing [place] to assist you with your healthcare needs. The following is importantdischarge information regarding your hospital visit. Your Care Team [facility] Your Diagnosis Abdominal pain Hyponatremia [...] Follow Up Appointments Follow Up with AMY SOOLRZANO When Within 3-5 days Why: Please call to schedule your post-hospital follow-up appointment. Where: [address] [place] [address] [phone] The Following Activity and Diet Have Been [...] a day Duration: 7 Days Pickup at [facility] Unchanged promethazine (promethazine 25 mg rectal suppository) 1 suppository(ies) in the rectum Every 6 hours as needed for for nausea/vomiting Cannabis hyperemesis syndrome co-occurrent and due to cannabis abuse Pharmacy Information [facility]: [address] [phone] What How Much When Why Comments Stop [...] as coffee and soda. Take and apply atxi-dwo-bpxwnlr and prescription medicines only as told by [...] 10/06/2017 Document Revised: 11/04/2018 Document Reviewed: 10/06/2017 [employer] Patient Education 2020 [employer]. Nausea, Adult Nausea is feeling sick [...] juice). ? Low-calorie sports drinks. Eat bland, awdt-md-qpklxe foods in small amounts as you are able, such as: ? Bananas. ? Applesauce. ? Rice. ? Low-fat (lean) meats. ? Kake. ? Crackers. Avoid drinking fluids that have a lot of sugar or caffeine in them. This includes energy drinks, sports drinks, and soda. Avoid alcohol. Avoid spicy or fatty foods. General instructions Take xbee-klq-xfuhrem and prescription medicines only as told by your doctor. Rest at home while you get better. Drink enough fluid to keep your pee (urine) pale yellow. Take slow and deep breaths when you feel sick to your stomach. Avoid food or things that have strong smells. Wash your hands often with soap and water. If you cannot use soap and water, use hand coil cleaner. Make sure that all people in your [...] drink what your doctor tells you. Take ukxi-rkr-zwmoeqn and prescription medicines only as told by [...] 06/16/2012 Document Revised: 12/06/2018 Document Reviewed: 12/06/2018 [employer] [place] [place] Patient Education 2020 [employer]. Additional Information VACCINATE! IT SAVES LIVES! Members of the community who have not yet received the COVID-19 vaccine and would like to receive it can visit one of [facility] vaccine clinics. There are many vaccine clinic locations within the [facility]. For locations and available times, please visit [email or web address].[place].gov/. It is important to note that some COVID mobile vaccine clinics are held outdoors and may be canceled in rainy or stormy conditions. To learn more about pediatric vaccinations (ages 5-11), we invite you to visit the [employer] [facility] webpage. https://www.akronBRAINREPUBLICs.org/pages/0052-Fxyfa-Rzhfsuclcxg-Ictoiykoay-Glcya-Vgi stions.htmlTo learn more about the COVID-19 vaccine, we invite you to visit the CDC website for a list of frequently asked questions.https://www.cdc.gov/coronavirus/2019-ncov/vaccines/faq.html [employer] Patient Portal Access Instructions: Stay connected with your healthcare team and access your personal medical information anytime with the [employer] Patient Portal. Please follow the directions below to create your [employer] account: 1.Access the email account you provided upon registration to the hospital/physician office.2.Look for an invitation email from [facility].3.Open the email and access the invitation link: AcceptInvitation to [employer].4.Fill in the required joy to create your account. To access your account, visit [employer]ramt. Click the blue button labeled Access Patient [...] who you will allowto register on the [facility] Patient Portal for access to your information. You can also access the [employer] Patient Portal on the [employer] edlla. Simply click on Patient Portal and then log into your account. If you would like to receive a full copy of your medical records, please contact the [facility] Medical Records Department by calling [phone], Wednesday through Wednesday between 8 a.m. and [...] Call your local pharmacy or go to http://Open Lending.Sierra House Cookies/2X8Bd7u to find one close to you.3.Make use of household items: Use cat litter or old coffee grounds to dispose medications if other options arenot available. Mix your drugs with these household products, seal them in an airtight container andthrow it into the garbage. Call [facility]: [phone] to be sure your drugs can be [...] Education Materials Cannabinoid Hyperemesis Syndrome Nausea, Adult, Axwp-jm-Gzbe Medication Leaflets My discharge plan and instructions have been reviewed and explained to me and I,GHISLAINE GIVENS understand my current condition and have read and understand these discharge instructions. I have received a written copy of the plan/instructions. If I have questions, I am aware that I should contact my doctor. Patient/Pump Installer Signature: Date/Time: Relationship to Patient: Witness Name/Signature: Date/Time: [facility]08-03-2023 Note ORIGINAL EXAMINATION: GASTRIC EMPTYING STUDY02/11/2023 [...] Date: 02/11/2023 3:41:00 PM [facility]ing [facility] Evaluation + Plan noteExtracted from: Title:History and Physical Author:MARTI WEBB RESIDENTIAL GLAZIER-PUBLIC TRANSPORTATION INSPECTOR Date:02/11/23 1. Abdominal pain 2. Hyponatremia 3. [...] and may include grammatical and/or spelling errors. [facility] 08-03-2023 Note ORIGINAL EXAMINATION: TRANSVAGINAL PELVIC [...] Sign Date: 02/11/2023 12:11:13 PM Ordering Provider: [address]03-2023 Note ORIGINAL EXAMINATION: ONE SUPINE XRAY [...] Sign Date: 02/11/2023 9:28:54 AM Ordering Provider: [place] [address]-03-2023 Note ORIGINAL EXAMINATION: COMPLETE ABDOMINAL ULTRASOUND 02/11/2023 [...] Sign Date: 02/11/2023 1:29:01 PM Ordering Provider: [facility]07-27-2023 History of Present illness Narrative* Irais Hanna [...] diagnostic capabilities in [facility], I recommend she go back to the ER since she is having pain and unable to keep down fluids. She understands. She does have a PCP, but would like a new one. I had our senior power scheduler help with scheduling a PCP appointment for the future, but still advise she go to the ER today. documented in this encounterTri[facility]07-16-2023 Hospital Discharge instructions* Discharge Instructions* Abdirizak Ramirez [...] your results today. Thank you for choosing [facility] for your care. Sincerely, Abdirizak Ramirez MD documented in this [facility]07-16-2023 Emergency department Note* Abdirizak Ramirez MD - 01/24/2023 10:[address] [facility] ED EMERGENCY DEPARTMENT ENCOUNTER Pt Name: Ghislaine [...] Culture. Procedure Abnormality Status --------- ------ Complete Urinalysis[[id number]] Abnormal Final result Please view results for [...] of DVT, no recent surgery/immobilization. Based on uzbek syncope rule (see below), patient is low risk and well appearing here, plan to discharge the patient home with PMD follow up. [place] syncope rule: predisposition to vasovagal symptoms/consistent with [...] 01:00:46 PM PATIENT REFERRED TO: Amy Solorzano [address] [place] [id number] Schedule an appointment as soon as [...] Abdirizak Ramirez MD [facility] Emergency Medicine Physician [facility] Abdirizak Ramirez MD 01/24/23 1303 * Tamica Penaloza RN - 01/24/2023 10:03 AM EDT Patient to room 15 with c/o vomiting for 3 weeks. Patient reports being at [facility] and being told it was [facility], and there was nothing more they could do for her. Patient reports having Zofran at home that she doesn't take, because it has not relieved her symptoms. V/S obtained, call light within reach. documented in this encounterSMagruder Memorial HospitalOjecge10-08-0364 Emergency department Triage note* Tamica Penaloza RN - 01/24/2023 10:03 AM EDT Patient to room 15 with c/o vomiting for 3 weeks. Patient reports being at [facility] and being told it was [facility], and there was nothing more they could do for her. Patient reports having Zofran at home that she doesn't take, because it has not relieved her symptoms. V/S obtained, call light within reach. [id number] Physician Emergency department Note* Abdirizak Ramirez MD - 01/24/2023 10:[address] [facility] ED EMERGENCY DEPARTMENT ENCOUNTER Pt Name: Ghislaine [...] Culture. Procedure Abnormality Status --------- ------ Complete Urinalysis[[id number]] Abnormal Final result Please view results for [...] of DVT, no recent surgery/immobilization. Based on uzbek syncope rule (see below), patient is low risk and well appearing here, plan to discharge the patient home with PMD follow up. [place] syncope rule: predisposition to vasovagal symptoms/consistent with [...] PM PATIENT REFERRED TO: Amykeiko Solorzano [address] [facility] [id number] Schedule an appointment as soon as possible [...] Ramirez MD [facility] Emergency Medicine Physician [facility] Abdirizak Ramirez MD 01/24/23 1303 [id number] Discharge summary Author Lexus Villatoro [facility] January 15, 2023 2:12pm Note Date/Time January 15, 2023 2:11p m [facility] Medical Records Department [address] [place] [address] Instructions for Home/Discharge Instructions 01/15/23 1411 MR#: [id number] Acct: [id number] Name: GIVENSGHISLAINE VERENICE Rep #:[id number] : 1990 32 From: Lexus Villatoro MD PCP: [facility] St atus:ADM BBO Discharge Instructions Diet Discharge Diet: Light diet [...] Attending Provider: Lexus Villatoro [facility] Inst[facility] Patient Instructions: Cannabinoid Hyperemesis Syndrome, [...] [Dulcolax (bisacodyl)] 10 mg suppository 10 mg ME DAILY 3 Days Qty: 12 0RF Rx [...] Qty: 7 0RF [facility] Care [facility] - Within 1 Week Disposition Disposition (needs filled in before D/C Order can be placed): Home, Self Care 01/15/231410<Electronically signed by Lexus Villatoro MD>Lexus Villatoro MD CC: [facility] ~ Signed ADDENDUM by Dr. Lexus Villatoro MD on 01/15/23 at 1412 You were noted to have a small ovarian cyst, this was seen previous on a scan ofyour abdomen as well. Please follow up with your PCP or ob/residential monitor for further management and monitoring 01/15/23 141<Electronically signed by Lexus Villatoro MD>Lexus Villatoro MD cc: [facility] ~* Signed [facility] Work Phone: 1(782) 137-591307-07-2023 Discharge summary Author Lexus Villatoro [facility] January 15, 2023 2:23pm Note Date/Time January 15, 2023 2:12p m [facility] Medical Records Department [address] [place] [address] Discharge Summary 01/15/23 141 MR#: [id number] Acct: [id number] Name: GHISLAINE GIVENS Rep #:[id number] : 1990 32 From: Lexus Villatoro MD PCP: [facility] St atus:ADM BOB Location: [place] [address] Providers Date of Admission: 01/14/23 Date of Discharge: 01/15/23 Primary Care Physician: Sophy [facility] Reason For Visit: INTRACTABLE NAUSEA VOMITING, [...] complication status: with neurologic complications Diabetes mellitus correction insulin use: without correction use Diabetes mellitus type: type 2 Plan [...] mg rectal suppository (Dulcolax (bisacodyl)) 10 mg ME DAILY 3 days #12 ea 01/15/23 scopolamine base 1 mg over 3 days transdermal patch 1 patch transdermal Q3D PRN nausea and vomiting #4 ea 01/15/23 Hospital Course Summary of Care Provided Minutes Spent on Discharge: 31 Hospital Course: GHISLAINE GIVENS, is a 32-year-old female with history of type 2 diabetes mellitus, hypertension, depression who presents to [facility] 01/14/2023 with 1 week of nausea, [...] Please follow up with your PCP or ob/residential monitor for further management and monitoring -Please call [...] % (Auto) 56.4, Lymph % (Auto) 34.2, [place]% (Auto) 8.2, Eos % (Auto) 0.3, Baso [...] Attending Provider: Lexus Villatoro [facility] Instructions Patient Instructions: Cannabinoid Hyperemesis Syndrome, [...] Please follow up with your PCP or ob/residential monitor for further management and monitoring -Please call [...] [Dulcolax (bisacodyl)] 10 mg suppository 10 mg ME DAILY 3 Days Qty: 12 0RF Rx [...] 7 0RF Referrals / Follow [facility] [Primary Care Provider] - Within 1 Week Disposition Disposition (needs filled in before D/C Order can be placed): Home, Self Care Charges/Coding Visit Charges Inpatient E&M: 57598 Disch Hosp >30min 01/15/23 1423 <Electronically signed by Lexus Villatoro MD> Cosigner Signature (if applicable): CC: Dr. Lexus Villatoro MD; [facility]~ Signed [facility] Work Phone: 1(163) 949-850907-06-2023 History and physical note Author Lexus Villatoro [facility] January 14, 2023 6:10pm Note Date/Time January 14, 2023 3:59p m [facility] Medical Records Department [address] [place] [id number] H&P Exam - Hospitalist 01/14/23 1552 MR#: [id number] Acct: [id number] Name: GHISLAINE GIVENS Rep #:[id number] : 1990 32 From: Lexus Villatoro MD PCP: [facility] St atus:ADM BOB Location: [facility] [id number] HPI - General General Date of Admission: 01/14/23 Date of Service: 01/14/23 Chief Complaint: Nausea HPI Narrative GHISLAINE GIVENS, is a 32-year-old female with history of type 2 diabetes mellitus, hypertension, depression who presents to [facility] 01/14/2023 with 1 week of nausea, [...] urinating regularly. Denies any other specific complaints [facility] Medical History Anxiety Asthma Constipation Depression Diabetes [...] % (Auto) 59.7, Lymph % (Auto) 31.2, [place]% (Auto) 7.7, Eos % (Auto) 0.2, Baso [...] Clarity Clear, Urine pH 8.0, Ur Specific [place] 1.015, Urine Protein 15 H, Urine Glucose [...] documentation, 58minutes Charges/Coding Visit Charges Inpatient E&M: 80305 Init Hosp L2 01/14/23 1810 <Electronically signed by Lexus Villatoro MD> Cosigner Signature (if applicable): CC: Dr. Lexus Villatoro MD; [facility]~ Signed [facility] Work Phone: 1(332) 641-372707-06-2023 Discharge summary Author Willie Dhillon [facility] January 14, 2023 3:33pm Note Date/Time January 14, 2023 12:08 pm [facility] Medical Records Department [address] [place] [address] Emergency Department Summary 01/14/23 MR#: [id number] Acct: [id number] Name: GHISLAINE GVIENS Rep #:[id number] : 1990 32 From: Willie Dhillon MD PCP: [facility] at:[facility] Location: ED HPI History of Present Illness [...] had any for a day or so. [facility] Medical History Anxiety Asthma Constipation Depression [...] % (Auto) 59.7 Lymph % (Auto) 31.2 [place] % (Auto) 7.7 Eos % (Auto) 0.2 [...] Clarity Clear Urine pH 8.0 Ur Specific [place] 1.015 Urine Protein 15 H Urine Glucose [...] Acute hypokalemia Disposition Disposition: Acute Care Hospital [facility] What to do if you have Problems For any increased pain, shortness of breath, bleeding, nausea or vomiting, chestpain, or any unexpected problems, contact your Primary Care Provider. Call [facility] ([phone]) or report to the closest Emergency Room. Call 911 if necessary. 01/14/233 <Electronically signed by Willie Dhillon MD> Cosigner Signature (if applicable): CC: [facility] ~ Signed [facility] Work Phone: 1(493) 158-527807-04-2023 Discharge summary Author Fabricio Guevara [facility] January 12, 2023 1:18pm Note Date/Time January 12, 2023 10:58 am [facility] Medical Records Department [address] [place] [address] Emergency Department Summary 01/12/23 MR#: [id number] Acct: [id number] Name: GHISLAINE GIVENS Rep #:[id number] : 1990 32 From: Fabricio Guevara MD PCP: [facility] St atus:REG ER Location: ED HPI [...] Prior similar symptoms: Yes Recent Ill[facility] Medical History Anxiety Asthma Constipation Depression Diabetes [...] 30 minutes before bedtime [facility]: [facility] [Primary Care Provider] - 3-5 Days if not improving Activity Restrictions/Additional Instructions: Zofran as needed for nausea. Follow-up with your doctor as needed. Stop using marijuana. Disposition Disposition: Home, Self Care What to do if you have Problems For any increased pain, shortness of breath, bleeding, nausea or vomiting, chestpain, or any unexpected problems, contact your Primary Care Provider. Call [facility] ([phone]) or report to the closest Emergency Room. Call 911 if necessary. 01/12/23 1318 <Electronically signed by Fabricio Guevara MD> Cosigner Signature (if applicable): CC: [facility] ~ Signed [facility] Work Phone: 1(766) 809-152607-04-2023 Note. MICRO - Microbiology PROCEDURE: Urine Culture [...] Locations *1: This test was performed at: [facility], [address] [place] [address], [address]- , [facility] ([place])01-10-2023 Hospital Discharge instructions Patient Education 01/10/2023 17:43:53 [...] and water are not available, use alcohol-based coil cleaner to keep from spreading the infection to [...] Yellow color of the eyes or skin [id number] [employer]. [address] [place] [address]. All rights reserved. This information is not intended as a substitute for professional medical care. Always follow yourmer[facility] professional's instructions. 01/10/2023 17:43:45 Marijuana Abuse Marijuana [...] National Alcohol and Substance Abuse Information Center (548)-[phone] www.addictioncareThinkUpions.com National [place] on Alcoholism and Drug Dependence 634-649-4060 www.ncadd.org Marijuana Anonymous 637-755-9963 www.marijuana-anonymous.org When to seek medical advice Call your healthcare provider right away if any of these occur: You feel extreme depression, fear, anxiety, or anger toward yourself or others. You feel out of control. You feel that you may try to harm yourself or another. You experience chest pain or shortness of breath. [phone] [employer]. [address] [place] [address], [place] [phone]. All rights reserved. This information is not intended as a substitute for professional medical care. Always follow yourhealthcare professional's instructions. Follow Up Care 01/10/2023 13:44:57 With:Call Physician Referral Address:Unknown When:2-4 days [facility] Note Discharge Instructions Thank [...] may report side effects to FDA at 4-159-DRD-5141. What other drugs will affect promethazine? Using promethazine with other drugs that make you drowsy can worsen this effect. Ask your doctor before using opioid medication, a sleeping pill, a muscle relaxer, or medicine for anxiety or seizures. Other drugs may affect promethazine, including prescription and jxfl-tjx-xpzkupg medicines, vitamins, and herbal products. Tell your [...] to ensure that the information provided by US Emergency Registry. ('Multum') is accurate, up-to-date, and complete, but no guarantee is made to that effect. Drug information contained herein may be time sensitive. GRAVIDI information has been compiled for use by healthcare practitioners and consumers in the [place] and therefore [employer]I does not warrant that uses outside of the [place] are appropriate, unless specifically indicated otherwise. YesGraphs drug information does not endorse drugs, diagnose patients or recommend therapy. YesGraphs drug information isan informational resource designed to [...] effective or appropriate for any given patient. G[employer]I does not assume any responsibility for any aspect of healthcare administered with the aid of information G[employer]VIDI provides. The information contained herein is not intended to cover all possible uses, directions, precautions, warnings, drug interactions, allergic reactions, or adverse effects. If you have questions about the drugs you are taking, check with your doctor, nurse or pharmacist. Copyright US Emergency Registry. Version: 8.01. Revision Date: 08/06/2021. prochlorperazine (oral/injection) [...] What is prochlorperazine? Prochlorperazine is a phenothiazine (LDDH-fn-NFWK-a-zeen) antipsychotic medicine that is used to treat [...] may report side effects to FDA at 0-854-TYO-7426. What other drugs will affect prochlorperazine? Using [...] may affect prochlorperazine. This includes prescription and ybqp-njo-vmxsdto medicines, vitamins, and herbal products. Not all [...] to ensure that the information provided by US Emergency Registry. ('Multum') is accurate, up-to-date, and complete, but no guarantee is made to that effect. Drug information contained herein may be time sensitive. G[employer]VIDI information has been compiled for use by healthcare practitioners and consumers in the [place] and therefore [employer] does not warrant that uses outside of the [place] are appropriate, unless specifically indicated otherwise. G[employer]I's drug information does not endorse drugs, diagnose patients or recommend therapy. YesGraphs drug information isan informational resource designed to [...] effective or appropriate for any given patient. [employer] does not assume any responsibility for any aspect of healthcare administered with the aid of information G[employer]VIDI provides. The information contained herein is not intended to cover all possible uses, directions, precautions, warnings, drug interactions, allergic reactions, or adverse effects. If you have questions about the drugs you are taking, check with your doctor, nurse or pharmacist. Copyright 0382-3510 US Emergency Registry. Version: 12.. Revision Date: 11/03/2019. Education Materials [...] and water are not available, use alcohol-based coil cleaner to keep from spreading the infection to [...] Yellow color of the eyes or skin [phone] [employer]. [address] [place] [address]. All rights reserved. This information is not [...] National Alcohol and Substance Abuse Information Center (687)-695-1940 www.addictioncareoptions.com National [place] on Alcoholism and Drug Dependence 370-850-7484 www.ncadd.org Marijuana Anonymous 380-059-0529 www.marijuana-anonymous.org When to seek medical advice Call your healthcare provider right away if any of these occur: You feel extreme depression, fear, anxiety, or anger toward yourself or others. You feel out of control. You feel that you may try to harm yourself or another. You experience chest pain or shortness of breath. 3825-4985 [employer]. [address] [place] [address], [place] [address]. All rights reserved. This information is not intended as a substitute for professional medical care. Always follow yourhealthcare professional's instructions. Additional Information VACCINATE! IT SAVES LIVES! Members of the community who have not yet received the COVID-19 vaccine and would like to receive it can visit one of [facility] vaccine clinics. There are many vaccine clinic locations within the [facility]. For locations and available times, please visit www.gettheshot.coronavirus.[place].gov/. It is important to note that some COVID mobile vaccine clinics are held outdoors and may be canceled in rainy or stormy conditions. To learn more about pediatric vaccinations (ages 5-11), we invite you to visit the [employer] [facility] webpage. https://www.akronBRAINREPUBLICs.org/pages/2584-Wpqyh-Wezgbndygmb-Kykovgsbks-Xtjkx-Fds stions.htmlTo learn more about the COVID-19 vaccine, we invite you to visit the CDC website for a list of frequently asked questions. https://www.cdc.gov/coronavirus/2019-ncov/vaccines/faq.html [facility] Patient Portal Access Instructions: Stay connected with your healthcare team and access your personal medical information anytime with the [facility] Patient Portal. If you would like a full copy of your medical records please contact the [facility] Medical Records Department Wednesday through Wednesday between 8a.m. and 4:30p.m. Please follow the directions below to access the portal: 1.Access the email account you provided upon registration to the hospital.2.Look for an invitation email from [facility].3.Open the email and access the invitation link: Accept Invitation to [facility]4.Fill in the required joy to create your account. Sign into www.[employer] with your username and password that you [...] you will allow to register on the [facility] Patient Portal for access to your information. You can also access the [facility] Patient Portal on the eIQnetworks della. Simply click on Health Records under Muzui and then click on the OpenLogic logo. HOW TO SAFELY DISPOSE OF PRESCRIPTION [...] Call your local pharmacy or go to http://Open Lending.Sierra House Cookies/2R6Lr5d to find one close to you.3.Make use of household items: Use cat litter or old coffee grounds to dispose medications if other options arenot available. Mix your drugs with these household products, seal them in an airtight container andthrow it into the garbage. Call [facility]: [phone] to be sure your drugs can be [...] aware that I should contact my doctor. Patient/Pump Installer Signature: Date/Time: Relationship to Patient: Witness Name/Signature: Date/Time: [facility] Michael [id number] Note ORIGINAL EXAMINATION: CT OF THE ABDOMEN [...] Date: 01/10/2023 4:59:31 PM [facility] Note ORIGINAL EXAMINATION: CT OF THE ABDOMEN [...] Date: 01/10/2023 4:59:31 PM [facility]ing [facility] Evaluation + Plan note Diagnostic Tests Pending * Urine Culture 01/10/23 [facility] 06-29-2023 Discharge summary Author Poli Barfield [facility] January 07, 2023 2:08pm Note Date/Time January 07, 2023 8:55 am [facility] Medical Records Department [address] [place] [address] [place] [address] Emergency Department Summary 01/07/23 MR#: [id number] Acct: [id number] Name: GHISLAINE GIVENS Rep #:[id number] : 1990 32 From: Poli Farah PCP: [facility] St atus:REG ER Location: ED HPI [...] clinician: N/A This note was generated with Polar[employer]ics dictation software. It may contain incorrectwords, spelling, [...] % (Auto) 53.2 Lymph % (Auto) 38.5 [place] % (Auto) 5.9 Eos % (Auto) 1.0 [...] Days Qty: 21 0RF [facility] [Primary Care Provider] - 3-5 Days [...] your Primary Care Provider. Call [facility] ([phone]) or report to the closest Emergency Room. Call 911 if necessary. 01/07/23 1408 <Electronically signed by Poli Farah> Cosigner Signature (if applicable): CC: [facility] ~ Signed [facility] Work Phone: 1(350) 147-775605-09-2023 History of Present illness Narrative* Andres Galaviz APRN.PUBLIC TRANSPORTATION INSPECTOR - 11/17/2022 8:45 AM EDT Images from [...] Resp 16 Wt 110.2 kg (243 lb) [facility] 05/18/2021 SpO2 97% BMI 39.22 kg/m Hr [...] of care. This note was generated using Polarizonics software. It may contain errors in wording, punctuation, or spelling. Andres Galaviz APRN.SUZANNE documented in this encounterTrihealth [facility]04-03-2023 Miscellaneous Notes* Telephone Encounter - Romana Garcia LPN - 10/12/2022 8:06 AM EDT Spoke with pt and information listed below given. Pt verbalizes understanding. Romana Garcia LPN * Telephone Encounter - Brea Guevara LPN - 10/11/2022 12:30 PM EDT Left message to return call * Telephone Encounter - MIGUEL A Goldman - 10/11/2022 9:29 AM EDT Please call patient know that wound culture revealed MRSA. She needs to continue doxycycline and Keflex as prescribed. Follow-up with PCP for wound recheck this week. Go to ER if symptoms worsen. documented in this encounterTrihealth [facility]03-30-2023 History of Present illness Narrative* Shamika Goins PA-C - 10/08/2022 9:08 AM EDT Images from the original note were not included. This note was created using [employer]. Subjective Ghislaine Givens is a 32 year [...] tolerated it fine. Recommend she call her fisher sponge hooking today to be seen. Likely MRSA with [...] Z86.14 Shamika Goins PA-C documented in this encounterTrihealth [facility]02-04-[address] Villatoro [facility] August 15, 2022 11:44am Note Date/Time August 15, 2022 1 1:38am [facility] Medical Records Department [address] [place] [address] Instructions for Home/Discharge Instructions 08/15/22 1132 MR#: [id number] Acct: [id number] Name: GHISLAINE GIVENS Rep #:[id number] : 1990 32 From: Lexus Villatoro MD [...] be sent to your preferred pharmacy, [facility] ?Please continue all other home medications -Please [...] subcutaneous twice daily Referrals / Follow Up: Startzman,Erath [Primary Care Provider] - Within 1 Week Disposition Disposition (needs filled in before D/C Order can be placed): Home, Self Care 08/15/22 1144<Electronically signed by Lexus Villatoro MD>Lexus Villatoro MD CC: Dr. Valencia Urbina MD; Dr. Sophy Gibbons ~ Signed [facility] Work Phone: 1(588) 693-616302-03-[address] Villatoro [facility] August 14, 2022 8:50am Note Date/Time August 14, 2022 8 :50am [facility] Medical Records Department [address] [place] [address] Progress Note - Hospitalist 08/14/22 0846 MR#: [id number] Acct: [id number] Name: GHISLAINE GIVENS Rep #:[id number] : 1990 32 From: Lexus Villatoro MD PCP: Dr. Sophy Gibbons Status:ADM IN Location: [place] [address] Subjective Subjective Irritable this morning, reports her [...] Neut % (Auto) 65.7, Lymph % (Auto)22.3, [place] % (Auto) 8.6, Eos % (Auto) 0.6, [...] diabetes mellitus, hypertension, depression who presents to [facility] 08/12 with hyperglycemia andtachycardia. She was [...] documentation, 30Minutes Charges/Coding Visit Charges Inpatient E&M: 88593 Subs Hosp L2 08/14/22 0850 <Electronically signed by Lexus Villatoro MD> Cosigner Signature (if applicable): CC: ~ Signed [facility] Work Phone: 1(338) 243-212002-02-[address] Villatoro [facility] August 13, 2022 4:34pm Note Date/Time August 13, 2022 8 :40am [facility] Medical Records Department [address] [place] [address] Progress Note - Hospitalist 08/13/22831 MR#: [id number] Acct: [id number] Name: GHISLAINE GIVENS Rep #:[id number] : 1990 32 From: Lexus Villatoro MD PCP: Dr. Sophy Gibbons Status:ADM IN Location: [place] [id number] Subjective Subjective Reports slight cough which she [...] % (Auto) 69.8, Lymph % (Auto) 20.1, [place] % (Auto) 8.7, Eos % (Auto) 0.1, [...] (MDRD) Non-Af 61, BUN/Creatinine Ratio 7.2 L, [id number] H, Calcium 9.6, Magnesium 1.6, Total Bilirubin 0.50, AST 20, ALT 13, Alkaline Phosphatase 136 H, Troponin I High Sens 6, Total Protein 9.2 H, Albumin2.9 L, Globulin 6.3 H, Albumin/Globulin Ratio 0.5 L 08/12/22 16:22: Acetone Level NEGATIVE 08/12/22 16:22: Urine Color Yellow, Urine Clarity Clear, Urine pH 6.0, Ur Specific [place] 1.010, Urine Protein 100 H, Urine Glucose [...] 71.0 H, Lymph % (Auto) 17.3 L, [place] % (Auto) 9.7, Eos % (Auto) 0.2, Baso % (Auto) 0.5, Absolute Neuts (auto) 10.6 H, Absolute Lymphs (auto) 2.59, Nucleated RBC % 0 08/13/22 05:17: Sodium 134 L, Potassium 4.1, Chloride 102, Carbon Dioxide 22.0, Anion Gap 10, BUN 7, Creatinine 0.86, Estim Creat Clear Calc 89.54, Est GFR (MDRD) Af Amer 99, Est GFR (MDRD) Non-Af 82, BUN/Creatinine Ratio 8.1 L, Ezhyxzz228 H, Calcium 8.6, Magnesium 2.2, Total Bilirubin [...] diabetes mellitus, hypertension, depression who presents to [facility] 08/12 with hyperglycemia andtachycardia. She was [...] documentation, 40Minutes Charges/Coding Visit Charges Inpatient E&M: 06388 Subs Hosp L2 08/13/22 1634 <Electronically signed by Lexus Villatoro MD> Cosigner Signature (if applicable): CC: ~ Signed [facility] Work Phone: 1(650) 220-468302-02-[address] Christiansen [facility] August 12, 2022 10:42pm Note Date/Time August 12, 2022 3 :41pm [facility] Medical Records Department [address] [place] [address] Emergency Department Summary 08/12/22 MR#: [id number] Acct: [id number] Name: GHISLAINE GIVENS Rep #:[id number] : 1990 32 From: Alex Christiansen DO PCP: Dr. Sophy Gibbons Status:ADM [facility] History of Present Illness [...] which is completely healing and doing well. [facility] Medical History (Updated 08/12/22 @ 21:20 [...] % (Auto) 69.8 Lymph % (Auto) 20.1 [place] % (Auto) 8.7 Eos % (Auto) 0.1 [...] Color Urine Clarity Urine pH Ur Specific [place] Urine Protein Urine Glucose (UA) Urine Ketones [...] (Auto) Neut % (Auto) Lymph % (Auto) [place] % (Auto) Eos % (Auto) Baso % [...] Clarity Clear Urine pH 6.0 Ur Specific [place] 1.010 Urine Protein 100 H Urine Glucose [...] (Auto) Neut % (Auto) Lymph % (Auto) [place] % (Auto) Eos % (Auto) Baso % [...] Color Urine Clarity Urine pH Ur Specific [place] Urine Protein Urine Glucose (UA) Urine Ketones [...] 18:42 EST Reading Location ID and State: [facility] / [place] , Service support , Discharge Plan Disposition Disposition: Acute Care Hospital [facility] Discharge Date/Time: 08/12/22 22:03 What to do if you have Problems For any increased pain, shortness of breath, bleeding, nausea or vomiting, chestpain, or any unexpected problems, contact your Primary Care Provider. Call [facility] ([phone]) or report to the closest Emergency Room. Call 911 if necessary. 08/12/222241 <Electronically signed by Alex Christiansen DO> Cosigner Signature (if applicable): CC: Dr. Sophy Gibbons ~ Signed [facility] Work Phone: 1(724) 755-764102-01-2023 History and physical note Author Dr. Urbina [facility] August 12, 2022 9:20pm Note Date/Time August 12, 2022 8 :09pm [facility] Medical Records Department [address] [place] [address] H&P Exam - Hospitalist 08/12/222008 MR#: [id number] Acct: [id number] Name: GHISLAINE GIVENS Rep #:[id number] : 1990 32 From: Valencia Urbina MD PCP: Dr. Sophy Gibbons Status:ADM IN Location: [facility] PCO734- 1 HPI - General General Date of Admission: 08/12/22 Date of Service: 08/12/22 Chief Complaint: Hyperglycemia, tachycardia HPI Narrative GHISLAINE GIVENS, is a 32 F who presents with the above. Patient has past medicalhistory of type II DM, recent discharge from the hospital on 06/29/22 for right diabetic foot infection status post right toe amputation. Patient was referred to the emergency room from [facility] for hyperglycemia and tachycardia. 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 [facility] Medical History (Updated 08/12/22 @ 21:20 by [...] % (Auto) 69.8, Lymph % (Auto) 20.1, [place] % (Auto) 8.7, Eos % (Auto) 0.1, [...] (MDRD) Non-Af 61, BUN/Creatinine Ratio 7.2 L, Yrrhkki586 H, Calcium 9.6, Magnesium 1.6, Total Bilirubin 0.50, AST 20, ALT 13, Alkaline Phosphatase 136 H, Troponin I High Sens 6, Total Protein 9.2 H, Albumin2.9 L, Globulin 6.3 H, Albumin/Globulin Ratio 0.5 L 08/12/22 16:22: Acetone Level NEGATIVE 08/12/22 16:22: Urine Color Yellow, Urine Clarity Clear, Urine pH 6.0, Ur Specific [place] 1.010, Urine Protein 100 H, Urine Glucose [...] 17:39 EST Reading Location ID and State: [facility] / [place] , Service support , Abdomen/Pelvis CT 08/12/22 17:27 IMPRESSION: 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 Multiple subcentimeter retroperitoneal nodes of uncertain etiology but stable since previous study most likely inflammatory Electronically Signed: Andres Ramos MD at 18:42 EST Reading Location ID and State: [facility] / [place] , Service support , Assessment & Plan [...] room physician. Charges/Coding Visit Charges Inpatient E&M: 77176 Init Hosp L2 08/12/222119 <Electronically signed by Valencia Urbina MD> Cosigner Signature (if applicable): CC: Dr. Valencia Urbina MD; Dr. Sophy Gibbons~ Signed [facility] Work Phone: 1(646) 830-293209-12-2022 History of Present illness Narrative* Luis Mayes, [...] 23, 2022 1:00 PM documented in this encounterTrihealth [facility]09-12-2022 History of Present illness Narrative* Sid Bravo [...] CORONAVIRUS Sid Bravo MD documented in this encounterTrihealth [facility]07-25-2022 History of Present illness Narrative* Alyssa Jaime APRN.[facility] - 02/02/2022 9:56 AM EDT Subjective The history is provided by the patient. No modern languages professor was used. HPI Ghislaine Givens is a 32 year old female who presents today for CC of concerns that she was in ERyeerday and was not treated for a pneumonia seen on CAT scan. Patient over the past month has been seen in ED for vomiting and abdominal pain. She is seeing GI at [facility], was seen on Wednesday and call them this morning. She is scheduled for a scope. Multiple CT scans that are negative, however yesterday's revealed possible pneumonia, pneumonitis. She was concerned she was not treated. She denies fever, chills, back pain or cough. BP 120/72 Pulse 74 Temp 36.2 C (97.2 F) Resp 16 Wt 92.5 kg (204 lb) LMP 05/18/2021 QcH183% BMI 32.93 kg/m Social History Tobacco Use Smoking status: Current Every Day Smoker Packs/day: 0.50 Years: 3.00 Pack years: 1.50 Types: Cigarettes Smokeless tobacco: Never Used Substance Use Topics Alcohol use: Yes Comment: Seldom Drug use: No PAST MEDICAL HISTORY Diagnosis Date Bipolar 1 disorder (HCC) 2008 Depression Elevated BP 04/28/2013 Insomnia I have confirmed and edited as necessary, the [facility] Review of Systems Constitutional: Negative for chills, [...] Level: 3 - Low documented in this encounterTrihealth [facility]07-25-2022 Instructions* Patient Instructions* Alyssa Jaime APRN.CNP - 02/02/2022 9:52 AM EDT Will set up follow for primary care and pulmonology To ER for worsening symptoms, increased pain, fevers, vomiting, decreased urine output, blood in her urine blood in her stools or dark tarry stools. documented in this encounterTrihealth [facility]11-04-2021 History of Present illness Narrative* Luis Mayes [...] 15, 2021 9:57 AM documented in this encounterTrihealth [facility]10-18-2013 History of Past illness Narrative* Problem Noted [...] of this encounter (statuses as of 02/02/2022) [facility] History of Past illness Narrative* Problem Noted [...] of this encounter (statuses as of 03/23/2022) [facility] History of Past illness Narrative* Problem Noted [...] of this encounter (statuses as of 10/08/2022) [facility] History of Past illness Narrative* Problem Noted [...] of this encounter (statuses as of 10/12/2022) [facility] of Past illness Narrative* Problem Noted [...] of this encounter (statuses as of 11/17/2022) [facility] of Past illness Narrative* Problem Noted [...] of this encounter (statuses as of 02/04/2023) [facility] of Past illness Narrative* Problem Noted [...] of this encounter (statuses as of 02/24/2023) [facility] of Past illness Narrative* Problem Noted [...] of this encounter (statuses as of 03/02/2023) [facility] of Past illness Narrative* Problem Noted [...] of this encounter (statuses as of 03/02/2023) [facility] of Past illness Narrative* Problem Noted [...] of this encounter (statuses as of 03/09/2023) [facility] of Past illness Narrative* Problem Noted [...] of this encounter (statuses as of 03/10/2023) [facility] of Past illness Narrative* Problem Noted [...] of this encounter (statuses as of 03/12/2023) [facility] of Past illness Narrative* Problem Noted [...] of this encounter (statuses as of 03/26/2023) [facility] of Past illness Narrative* Problem Noted [...] of this encounter (statuses as of 04/16/2023) [facility] of Past illness Narrative* Problem Noted [...] of this encounter (statuses as of 07/02/2023) [facility] HospitalDischarge summary Author Rickey Gifford [facility] May 09, 2023 2:02pm Note Date/Time May 09, 2023 2 :02pm [facility] Medical Records Department [address] [place] [address] Discharge Summary 05/09/23 1354 MR#: [id number] Acct: [id number] Name: GHISLAINE GIVENS Rep #:[id number] : 1990 33 From: Rickey Gifford DO PCP: Care Physician,No Primary Status :ADM IN Location: [facility] [id number] Providers Date of Admission: 05/04/23 Primary Care Physician: No Primary Care Phys Consultations 05/04/23 19:30 Consult: Onc/Wound/backup operator Routine Comment: Reason For Visit: RIGHT FOOT [...] mg rectal suppository (Dulcolax (bisacodyl)) 10 mg ME DAILY 3 days #12 ea 01/15/23 acetaminophen [...] to review data from outside hospitals including [facility] as well as [facility] and [place], [place]. Patient has had CAT scans, EGDs, [...] by some anxiety. [facility]. To be beneficial for [...] [Dulcolax (bisacodyl)] 10 mg suppository 10 mg ME DAILY 3 Days Qty: 12 0RF Rx [...] Self Care Charges/Coding Visit Charges Inpatient E&M: 33937 Disch Hosp >30min 05/09/23 1402 <Electronically signed by Rickey Gifford DO> Cosigner Signature (if applicable): CC: YESY Forrest; PATRICE Solorzano; Dr. Rickey Gifford DO; No Primary Care Physician~ Signed [facility] Work Phone: Discharge summary Author Gale Lr [facility] Note Date/Time November 28, 2024 12:31 pm [facility] Medical Records Department [address] [place] [id number] Discharge Summary 11/28/24 1203 MR#: [id number] Acct: [id number] Name: GHISLAINE GIVENS Rep #:[id number] : 1990 34 From: Gale Lr DO PCP: BROOKLYN Warren NP-C Statu s:ADM IN Location: [place] [address] Providers Date of Admission: 11/25/24 Date of [...] who presented to the emergency department at [facility] on 11/25/2024 with a chief complaint [...] (Auto) 49.8, Lymph % (Auto) 43.0 H, [place] % (Auto) 5.3, Eos % (Auto) 0.5, [...] as compared to prior study. Reading Location: [facility] D/C Instructions Discharge Diet: 1800 [...] tomorrow to set up appointment) Amy Solorzano, SURFACE GRINDER TENDER-C [Primary Care Provider] - In 1 Week Disposition Disposition (needs filled in before D/C Order can be placed): Home, Self Care Charges/Coding Visit Charges Inpatient E&M: 03366 Disch Hosp >30min 11/28/24 1231 <Electronically signed by Gale Lr DO> Cosigner Signature (if applicable): CC: Sara SURFACE GRINDER TENDER-C Amy Solorzano; Dr. Gale Lr DO~ Signed [facility] Work Phone: evaluation noteNo assessment information available [facility] Work Phone: evaluation note* Diagnosis Onset Date Resolution Status Abdominal pain acute [facility] Work Phone: Evaluation note* Diagnosis Abnormal lung scan- Primary Nonspecific abnormal results of pulmonary system function study Nausea and vomiting, unspecified vomiting type documented in this encounter [facility] note* Diagnosis Acute cough- Primary Mild intermittent asthmatic bronchitis without complication documented in this encounter [facility] note* Diagnosis Onset Date Resolution Status Abdominal pain acute Encounter for pre-employment health screening examination acute [facility] Work Phone: evaluation note* Diagnosis Onset Date Resolution Status Abdominal pain acute Encounter for pre-employment health screening examination acute Cellulitis of foot, right ac deering Diabetes acute Diabetic foot infection acut e Leukocytosis acute [facility] Work Phone: evaluation note* Diagnosis Onset Date Resolution Status Abdominal pain acute Encounter for pre-employment health screening examination acute Cellulitis and abscess of right lower extremity acute Cellulitis of foot, right ac deering Diabetes acute Diabetes mellitus with diabetic polyneuropathy acute Diabetic foot infection acut e Leukocytosis acute Osteomyelitis acute Type 2 diabetes mellitus with foot ulcer acute 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 [facility] Work Phone: Evaluation note* Diagnosis Onset Date Resolution Status Cellulitis and abscess of right lower extremity acute Cellulitis of foot, right ac deering Diabetes acute Diabetes mellitus with diabetic polyneuropathy [...] acut e Lactic acidosis acute Osteomyelitis acute [facility] Work Phone: Evaluation note* Diagnosis Onset Date Resolution Status Cellulitis and abscess of right lower extremity acute Cellulitis of foot, right ac deering Diabetes acute Diabetes mellitus with diabetic polyneuropathy acute Diabetic foot infection acut e Leukocytosis acute Osteomyelitis acute Type 2 diabetes mellitus with foot ulcer acute 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 Cellulitis and abscess of right lower extremity acute Cellulitis of foot, right ac deering Diabetes mellitus with diabetic polyneuropathy acute Diabetic foot infection acut e Lactic acidosis acute Osteomyelitis acute Type 2 diabetes mellitus with foot ulcer acute [facility] Work Phone: Evaluation note* Diagnosis Onset Date Resolution Status Cellulitis and abscess of right lower extremity acute Cellulitis of foot, right ac deering Diabetic foot infection acut e Osteomyelitis acute Lactic acidosis resolved Acute pyelonephritis acute [facility] Work Phone: Evaluation note* Diagnosis Toe infection- Primary Unspecified local infection of skin and subcutaneous tissue Facial infection Other specified infectious and parasitic diseases History of MRSA infection Personal history of Methicillin resistant Staphylococcus aureus documented in this encounter [facility] note* Diagnosis Facial infection- Primary Other specified infectious and parasitic diseases documented in this encounter [facility] note* Diagnosis Onset Date Resolution Status Acute hypokalemia acute Cannabis abuse acute Diabetes acute Elevated serum creatinine ac deering Failure of outpatient treatment acute Intractable nausea and vomiting acute [facility] Work Phone: Evaluation note* Diagnosis Onset Date Resolution Status Acute hypokalemia acute Cannabis abuse acute Diabetes acute Intractable nausea and vomiting acute [facility] Work Phone: Evaluation note* Diagnosis Nausea and vomiting, unspecified vomiting type- Primary Syncope and collapse documented in this encounter [facility] note* Diagnosis Generalized abdominal pain- Primary Abdominal pain, generalized documented in this encounter [facility] note* Diagnosis Chronic nausea- Primary Nausea alone Chronic abdominal pain Abdominal pain, unspecified site documented in this encounter [facility] note* Diagnosis Vomiting, unspecified vomiting type, unspecified whether nausea present- Primary Chronic nausea Nausea alone documented in this encounter [facility] note* Diagnosis Chronic abdominal pain- Primary Abdominal pain, unspecified site [facility] SOB (shortness of breath)- Primary Shortness of breath Abdominal pain, unspecified abdominal location [facility] Diagnosis Onset Date Resolution Status Acute hypokalemia acute Cannabis abuse acute Diabetes acute Intractable nausea and vomiting acute Diabetes acute Diabetic foot infection acut e Leukocytosis acute [facility] Work Phone: Evaluation note* Diagnosis Onset [...] right foot with fat layer exposed chronic [facility] Work Phone: Evaluation note* Diagnosis Onset Date Resolution Status Diabetic foot infection reso lved Gas gangrene resolved Leukocytosis resolved Non-pressure chronic ulcer o f other part of right foot with fat layer exposed resolved Tightness of right heel cord resolved [facility] Work Phone: Evaluation note* Diagnosis Pain of right eye- Primary Pain in or around eye [facility]* Diagnosis Onset Date Resolution Status Diabetic [...] right foot with fat layer exposed resolved [facility] Work Phone: Evaluation note* Diagnosis Onset Date Resolution Status Acute painful diabetic polyneuropathy acute Other acute osteomyelitis, right ankle and foot acute Non-pressure chronic ulcer o f other part of right foot with fat layer exposed resolved [facility] Work Phone: Evaluation note* Diagnosis Nausea- Primary Nausea alone [facility]* Diagnosis Type II or unspecified type diabetes mellitus without mention of complication, uncontrolled- Primary Morbid obesity with BMI of 40.0-44.9, adult (HCC) Morbid obesity Elevated BP Elevated blood pressure reading without diagnosis of hypertension Acute cough Mild intermittent asthmatic bronchitis without complication documented in this encounter [facility] note* Diagnosis Type II or unspecified type diabetes mellitus without mention of complication, uncontrolled- Primary Morbid obesity with BMI of 40.0-44.9, adult (HCC) Morbid obesity Elevated BP Elevated blood pressure reading without diagnosis of hypertension Cough [facility]* Diagnosis Type II or unspecified type diabetes mellitus without mention of complication, uncontrolled- Primary Morbid obesity with BMI of 40.0-44.9, adult (HCC) Morbid obesity Elevated BP Elevated blood pressure reading without diagnosis of hypertension Bronchopneumonia- Primary Bronchopneumonia, organism unspecified Mild intermittent asthma, uncomplicated Unspecified asthma documented in this encounter [facility] note* Diagnosis Type II or unspecified type diabetes mellitus without mention of complication, uncontrolled- Primary Morbid obesity with BMI of 40.0-44.9, adult (HCC) Morbid obesity Elevated BP Elevated blood pressure reading without diagnosis of hypertension Acute cough- Primary Acute cough documented in this encounter [facility] note* Diagnosis Type II or unspecified type diabetes mellitus without mention of complication, uncontrolled- Primary Morbid obesity with BMI of 40.0-44.9, adult (HCC) Morbid obesity Elevated BP Elevated blood pressure reading without diagnosis of hypertension Acute cough documented in this encounter [facility] note* Diagnosis Onset Date Resolution Status Admit Date Acute proctitis acute November 25, 2024 1:38pm Colitis acute November 25, 2024 1:38pm Fecal impaction acute November 25, 2024 1:38pm [facility] Work Phone: History and physical note Author Dr. Urbina [facility] August 12, 2022 9:20pm Note Date/Time August 12, 2022 8 :09pm [facility] Medical Records Department [address] [place] [address] H&P Exam - Hospitalist 08/12/222008 MR#: [id number] Acct: [id number] Name: GHISLAINE GIVENS Rep #:[id number] : 1990 32 From: Valencia Urbina MD PCP: Dr. Sophy Gibbons Status:ADM IN Location: [facility] [id number] HPI - General General Date of Admission: 08/12/22 Date of Service: 08/12/22 Chief Complaint: Hyperglycemia, tachycardia HPI Narrative GHISLAINE GIVESN, is a 32 F who presents with the above. Patient has past medicalhistory of type II DM, recent discharge from the hospital on 06/29/22 for right diabetic foot infection status post right toe amputation. Patient was referred to the emergency room from [facility] for hyperglycemia and tachycardia. 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 [facility] Medical History (Updated 08/12/22 @ 21:20 by [...] % (Auto) 69.8, Lymph % (Auto) 20.1, [place] % (Auto) 8.7, Eos % (Auto) 0.1, [...] (MDRD) Non-Af 61, BUN/Creatinine Ratio 7.2 L, [id number] H, Calcium 9.6, Magnesium 1.6, Total Bilirubin 0.50, AST 20, ALT 13, Alkaline Phosphatase 136 H, Troponin I High Sens 6, Total Protein 9.2 H, Albumin2.9 L, Globulin 6.3 H, Albumin/Globulin Ratio 0.5 L 08/12/22 16:22: Acetone Level NEGATIVE 08/12/22 16:22: Urine Color Yellow, Urine Clarity Clear, Urine pH 6.0, Ur Specific [place] 1.010, Urine Protein 100 H, Urine Glucose [...] room physician. Charges/Coding Visit Charges Inpatient E&M: 28916 Init Hosp L2 08/12/222119 <Electronically signed by Valencia Urbina MD> Cosigner Signature (if applicable): CC: Dr. Valencia Urbina MD; Dr. Sophy Gibbons~ Signed [facility] Work Phone: Hospital course Narrative No data available for this section [facility] Discharge instructions Additional Instructions Avoid marijuana use. Use the capsaicin cream every 6 hours as needed. Medication prescribed to use as needed. Continue oral fluids at home for hydration. Follow-up with your doctor.[facility] Work Phone: Hospital Discharge instructions Additional Instructions Please decrease your marijuana use. Please maintain hydration, use antinausea medicine as needed.[facility] Work Phone: Hospital Discharge instructions Additional Instructions Please fill the prescriptions that were prescribed to you from [facility] to help control your nausea and vomiting. Based on their CAT scan showing potential gallbladder or fallopian tube issues please have the ultrasounds obtained that were ordered on an outpatient basis this evening. If you have any further concerns return to the [facility] Work Phone: Hospital Discharge instructions Additional Instructions Your CT scan showed inflammation of the rectum consistent with acute proctitis. This can be secondary to infection or just inflammation but because of your diabetes and elevation of your white count take the antibiotic to resolve an infectious cause. If you have any further concerns please return for repeat evaluationW[facility] Work Phone: Hospital Discharge instructions Additional Instructions I would recommend gentle massage of the tear duct. Warm compresses as discussed. I would highly encourage ophthalmologic follow-up. Monitor for worsening symptoms return if needed.[facility] Work Phone: Hospital Discharge instructions Additional [...] letting me be involved in your surgical care![facility] Work Phone: Reason for referral (narrative)* Diagnostic Procedure Only (Routine) - New Request Specialty Diagnoses / Procedures Referred By Contac t Referred To Contact MOLECULAR & FUNCTIONAL IMAGING Diagnoses Nausea Procedures NM GASTRIC EMPTYING SOLID GASTRIC EMPTYING STUDY Almita Kelly PA-C [address] [place] [address] Molecular & Functional Imaging [address] [place] [address] Referral ID Status Reason Start Date Expiration Date Visits Requested Visits Authorized [id number] New Request Auto-Generat ed Referral 03/02/2023 03/31/2024 1 1 [facility] for referral (narrative)No reason for referral information availableWOur [facility] Work Phone: Chief Complaint and Reason for [...] INFECTION DIABETIC FOOT INFECTION DIABETIC FOOT INFECTION INTERMEDIATE LABWORK Reason for Visit Abdominal pain Encounter [...] INFECTION DIABETIC FOOT INFECTION DIABETIC FOOT INFECTION INTERMEDIATE LABWORK INTERMEDIATE LAB WORK Reason for Visit Abdominal pain [...] INFECTION DIABETIC FOOT INFECTION DIABETIC FOOT INFECTION INTERMEDIATE LABWORK INTERMEDIATE LAB WORK INTERMEDIATE LABWORK CMP/CBC Reason for Visit Abdominal pain [...] INFECTION DIABETIC FOOT INFECTION DIABETIC FOOT INFECTION INTERMEDIATE LABWORK INTERMEDIATE LAB WORK INTERMEDIATE LABWORK CMP/CBC DIABETIC FOOT ULCER Reason for [...] INFECTION DIABETIC FOOT INFECTION DIABETIC FOOT INFECTION INTERMEDIATE LABWORK INTERMEDIATE LAB WORK INTERMEDIATE LABWORK CMP/CBC DIABETIC FOOT ULCER Reason for [...] INFECTION DIABETIC FOOT INFECTION DIABETIC FOOT INFECTION INTERMEDIATE LABWORK INTERMEDIATE LAB WORK INTERMEDIATE LABWORK CMP/CBC DIABETIC FOOT ULCER DIAULCER DIAULCER [...] diabetes mellitus with foot ulcer Chief Complaint INTERMEDIATE LABWORK CMP/CBC DIABETIC FOOT ULCER DIAULCER DIAULCER DIAULCER DIAULCER DIAULCER ACUTE PYELONEPHRITIS ACUTE PYELONEPHRITIS Reason for Visit Cellulitis and absce ss of right lower extremity Cellulitis of foot, right Diabetic foot infection Osteomyelitis Lactic acidosis Acute pyelonephritis Chief Complaint INTERMEDIATE LABWORK CMP/CBC DIABETIC FOOT ULCER DIAULCER DIAULCER [...] No October 24, 2021 8:30am Power of Director Of Real Estate No October 24 8:30am Advance Directive Response Recorded Date/ Time Living Will No October 29, 2021 9:39am Power of Director Of Real Estate No October 29 9:39am Advance Directive Response Recorded Date/ Time Living Will No November 16, 2021 8: 50am Power of Director Of Real Estate No November 16, 2021 8:50am Advance Directive Response Recorded Date/ Time Living Will No January 16, 2022 2 :46pm Power of Director Of Real Estate No January 16, 2022 2:46pm Advance Directive Response Recorded Date/ Time Living Will No January 22, 2022 9:41pm Power of Director Of Real Estate No January 22 9:41pm Advance Directive Response Recorded Date/ Time Living Will No January 23, 2022 4:29pm Power of Director Of Real Estate No January 23 4:29pm Advance Directive Response Recorded Date/ Time Living Will No January 26, 2022 12:34pm Power of Director Of Real Estate No January 26 12:34pm Advance Directive Response Recorded Date/ Time Living Will No February 01, 2022 1:07pm Power of Director Of Real Estate No February 01 1:07pm Advance Directive Response Recorded Date/ Time Living Will No April 05, 2022 11:53am Power of Director Of Real Estate No March 11:53am Advance Directive Response Recorded Date/ Time Living Will No April 06, 2022 12:58pm Power of Director Of Real Estate No March 12:58pm Advance Directive Response Recorded Date/ Time Living Will No April 06, 2022 4:07pm Power of Director Of Real Estate No March 4:07pm Advance Directive Response Recorded Date/ Time Living Will No June 24, 2 022 3:40pm Power of Director Of Real Estate No June 24, 2022 3:40pm Advance Directive Response Recorded Date/ Time Living Will No August 12 5:35pm Power of Director Of Real Estate No August 12, 2022 5:35pm Advance Directive Response Recorded Date/ Time Living Will No August 12 10:55pm Power of Director Of Real Estate No August 12, 2022 10:55pm Advance Directive Response Recorded Date/ Time Living Will No January 07, 2023 8:51am Power of Director Of Real Estate No January 07 8:51am Advance Directive Response Recorded Date/ Time Living Will No January 09, 2023 1 2:00pm Power of Director Of Real Estate No January 09, 2023 12:00pm Advance Directive Response Recorded Date/ Time Living Will No January 12, 2023 1 2:39am Power of Director Of Real Estate No January 12, 2023 12:39am Advance Directive Response Recorded Date/ Time Living Will No January 12, 2023 1 2:53pm Power of Director Of Real Estate No January 12, 2023 12:53pm Advance Directive Response Recorded Date/ Time Living Will No January 14, 2023 4 :21pm Power of Director Of Real Estate No January 14, 2023 4:21pm Advance Directive Response Recorded Date/ Time Living Will No January 25, 2023 11:41am Power of Director Of Real Estate No January 25 11:41am Advance Directive Response Recorded Date/ Time Living Will No February 08, 2023 12:35pm Power of Director Of Real Estate No February 08 12:35pm Latest Code Status on File Code Status Date Activated Date Inactivated Comments Full Code 02/18/2023 1:58 AM 02/20/2023 4:13 PM Question Answer Comments Full Code Order Discussed With: Patient Advance Directive Response Recorded Date/ Time Living Will No February 26 12:10am Power of Director Of Real Estate No February 26, 2 023 12:10am Latest [...] Will No March 06 8:38am Power of Director Of Real Estate No March 06, 2 023 8:38am Latest [...] Will No May 04 12:14pm Power of Director Of Real Estate No May 04, 2023 12:14pm Advance Directive Response Recorded Date/ Time Living Will No May 04 6:42pm Power of Director Of Real Estate No May 04, 2023 6:42pm Advance Directive Response Recorded Date/ Time Living Will No May 04 5:42pm Power of Director Of Real Estate No May 04, 2023 5:42pm Advance Directive Response Recorded Date/ Time Living Will No June 28, 2 023 9:27am Power of Director Of Real Estate No June 28, 2023 9:27am Advance Directive Response Recorded Date/ Time Living Will No July 02, 2 023 9:33am Power of Director Of Real Estate No July 02, 2023 9:33am Advance Directive Response Recorded Date/ Time Living Will No July 16 9:15am Power of Director Of Real Estate No July 16 024 9:15am Advance Directive Response Recorded Date/ Time Living Will No July 16 10:15am Power of Director Of Real Estate No July 16, 2 024 10:15am Date [...] No June 25, 023 9:33am Power of Director Of Real Estate No June 25, 2023 9:33am Advance Directive Response Recorded Date/ Time Living Will No June 26, 2 023 12:21pm Power of Director Of Real Estate No June 26, 2023 12:21pm Advance Directive Response Recorded Date/ Time Living Will No June 27 023 5:53am Power of Director Of Real Estate No June 27, 2023 5:53am Advance Directive Response Recorded Date/ Time Do you have a Healthcare Power of Director Of Real Estate? No November 25, 2024 8:56am Advance Directive Response Recorded Date/ Time Do you have a Healthcare Power of Director Of Real Estate? No November 25, 2024 2:54pm Family History [...] scan Procedures CONSULT TO PULM/CRITICAL CARE OFFICE/OUTPATIENT [facility] 60-74 MINUTES Alyssa Jaime, ROSA.PUBLIC TRANSPORTATION INSPECTOR [address] [place] [address] Referral ID Status Reason Start Date Expiration Date Visits Requested Visits Authorized [id number] Authorized PCP Requested Referral 02/02/2022 02/02/2023 1 1 Specialty Diagnoses / Procedures Referred By Contac t Referred To Contact Pain Management Diagnoses Chronic abdominal pain Procedures CONSULT TO PAIN MGT OFFICE/OUTPATIENT [facility] 60-74 MINUTES Pilar Magdaleno APRN.PUBLIC TRANSPORTATION INSPECTOR [address] [place] [address] Referral ID Status Reason Start Date Expiration Date Visits Requested Visits Authorized [id number] Authorized PCP Requested Referral 02/23/2023 02/23/2024 1 1 Specialty Diagnoses / Procedures Referred By Contac t Referred To Contact Gastroenterology Diagnoses Chronic nausea Procedures CONSULT TO GASTROENTEROLOGY OFFICE/OUTPATIENT [facility] 60-74 MINUTES Pilar Magdaleno, ROSA.PUBLIC TRANSPORTATION INSPECTOR [address] [place] [address] Referral ID Status Reason Start Date Expiration Date Visits Requested Visits Authorized [id number] Authorized PCP Requested Referral 02/23/2023 02/23/2024 1 1 Referral ID Status Reason Start Date Expiration Date Visits Requested Visits Authorized [id number] Authorized PCP Requested Referral 03/12/2023 03/11/2024 1 [...] or prosecute any alcohol or drug abuse patient.[facility] HospitalIn the event this information is protected by the Federal Confidentiality of Alcohol and Drug Abuse Patient Records regulations: The Federal rules restrict any use of the information to criminally investigate or prosecute any alcohol or drug abuse patient.[facility] HospitalIn the event this information is protected by the Federal Confidentiality of Alcohol and Drug Abuse Patient Records regulations: The Federal rules restrict any use of the information to criminally investigate or prosecute any alcohol or drug abuse patient.[facility] HospitalIn the event this information is protected by the Federal Confidentiality of Alcohol and Drug Abuse Patient Records regulations: The Federal rules restrict any use of the information to criminally investigate or prosecute any alcohol or drug abuse patient.[facility] HospitalIn the event this information is protected by the Federal Confidentiality of Alcohol and Drug Abuse Patient Records regulations: The Federal rules restrict any use of the information to criminally investigate or prosecute any alcohol or drug abuse patient.[facility] HospitalIn the event this information is protected by the Federal Confidentiality of Alcohol and Drug Abuse Patient Records regulations: The Federal rules restrict any use of the information to criminally investigate or prosecute any alcohol or drug abuse patient.[facility] HospitalIn the event this information is protected by the Federal Confidentiality of Alcohol and Drug Abuse Patient Records regulations: The Federal rules restrict any use of the information to criminally investigate or prosecute any alcohol or drug abuse patient.[facility] HospitalIn the event this information is protected by the Federal Confidentiality of Alcohol and Drug Abuse Patient Records regulations: The Federal rules restrict any use of the information to criminally investigate or prosecute any alcohol or drug abuse patient.[facility] HospitalIn the event this information is protected by the Federal Confidentiality of Alcohol and Drug Abuse Patient Records regulations: The Federal rules restrict any use of the information to criminally investigate or prosecute any alcohol or drug abuse patient.[facility] HospitalIn the event this information is protected by the Federal Confidentiality of Alcohol and Drug Abuse Patient Records regulations: The Federal rules restrict any use of the information to criminally investigate or prosecute any alcohol or drug abuse patient.[facility] HospitalIn the event this information is protected by the Federal Confidentiality of Alcohol and Drug Abuse Patient Records regulations: The Federal rules restrict any use of the information to criminally investigate or prosecute any alcohol or drug abuse patient.[facility] HospitalIn the event this information is protected by the Federal Confidentiality of Alcohol and Drug Abuse Patient Records regulations: The Federal rules restrict any use of the information to criminally investigate or prosecute any alcohol or drug abuse patient.[facility] HospitalIn the event this information is protected by the Federal Confidentiality of Alcohol and Drug Abuse Patient Records regulations: The Federal rules restrict any use of the information to criminally investigate or prosecute any alcohol or drug abuse patient.[facility] HospitalIn the event this information is protected by the Federal Confidentiality of Alcohol and Drug Abuse Patient Records regulations: The Federal rules restrict any use of the information to criminally investigate or prosecute any alcohol or drug abuse patient.[facility] HospitalIn the event this information is protected by the Federal Confidentiality of Alcohol and Drug Abuse Patient Records regulations: The Federal rules restrict any use of the information to criminally investigate or prosecute any alcohol or drug abuse patient.[facility] HospitalIn the event this information is protected by the Federal Confidentiality of Alcohol and Drug Abuse Patient Records regulations: The Federal rules restrict any use of the information to criminally investigate or prosecute any alcohol or drug abuse patient.[facility] HospitalIn the event this information is protected by the Federal Confidentiality of Alcohol and Drug Abuse Patient Records regulations: The Federal rules restrict any use of the information to criminally investigate or prosecute any alcohol or drug abuse patient.[facility] HospitalIn the event this information is protected by the Federal Confidentiality of Alcohol and Drug Abuse Patient Records regulations: The Federal rules restrict any use of the information to criminally investigate or prosecute any alcohol or drug abuse patient.[facility] HospitalIn the event this information is protected by the Federal Confidentiality of Alcohol and Drug Abuse Patient Records regulations: The Federal rules restrict any use of the information to criminally investigate or prosecute any alcohol or drug abuse patient.[facility] HospitalIn the event this information is protected by the Federal Confidentiality of Alcohol and Drug Abuse Patient Records regulations: The Federal rules restrict any use of the information to criminally investigate or prosecute any alcohol or drug abuse patient.[facility] HospitalIn the event this information is protected by the Federal Confidentiality of Alcohol and Drug Abuse Patient Records regulations: The Federal rules restrict any use of the information to criminally investigate or prosecute any alcohol or drug abuse patient.[facility] Reason for Visit (unrecogniz ed section and [...] vomiting Specialty Diagnoses / Procedures Referred By bUaldo t Referred To Contact Gastroenterology Diagnoses Chronic nausea Procedures CONSULT TO GASTROENTEROLOGY OFFICE/OUTPATIENT NEW HIGH MDM 60-74 MINUTES Pilar Magdaleno APRN.[employer]IC [employer]ATION INSPECTOR [address] [place] [address] Referral ID Status Reason Start Date Expiration Date V isits Requested Visits Authorized [id number] Closed PCP Requested Referral 02/23/2023 02/23/2024 1 [...] Physician Primary Care Provider Active Dr. Andres aMtias DPM Attending Provider, Referrin g Provider Active [...] Dr. Lexus Villatoro MD Attending Provider Active Doctor Of Naprapathic Medicine Relationship Specialty Start Date End Date Amy Solorzano, MARIA G [address] [place] [address] PCP - General Family Medicine 11/17/22 Team Status: Active Member Role Status Dates Dr. Esther Cooney MD Family Provider Active [facility] Primary Care Provider A ctive Team Status: Inactive Member Role Status Dates Dr. Sophy Gibbons Primary Care Provider Active Dr. Tim Vidal DO Attending Provider, Emergency P tala Active Team Status: Active Member Role Status Dates [facility] Primary Care Provider A ctive Amy Solorzano SURFACE GRINDER TENDER, SURFACE GRINDER TENDER-C Attending Provider, Referrin g Provider Active Team Status: Inactive Member Role Status Dates [facility] Primary Care Provider A ctive Dr. Poli Barfield DO Emergency Provider Active Team Status: Inactive Member Role Status Dates [facility] Primary Care Provider A ctive Dr. Deann Guerrero MD Emergency Provider Active Team Status: Inactive Member Role Status Dates [facility] Primary Care Provider A ctive Dr. Perico Norman DO Emergency Provider Active Team Status: Inactive Member Role Status Dates [facility] Primary Care Provider A ctive Dr. Fabricio Guevara MD Emergency Provider Active Team Status: Active Member Role Status Dates [facility] Primary Care Provider A ctive Dr. Willie Dhillon MD Emergency Provider Active Dr. Lexus Villatoro MD Admit Provider, At tending Provider, Other Provider Active Team Status: Inactive Member Role Status Dates [facility] Primary Care Provider A ctive Dr. Willie Dhillon MD Emergency Provider Active Dr. Lexus Villatoro MD Admit Provider, Attending Provid er Active Team Status: Inactive Member Role Status Dates [facility] Primary Care Provider A ctive Dr. Poli Barfield DO Attending Provider, Emergency Provide r Active Team Status: Inactive Member Role Status Dates [facility] Primary Care Provider A ctive Dr. Deann Guerrero MD Attending Provider, Emergency Provider Active Team Status: Inactive Member Role Status Dates [facility] Primary Care Provider A ctive Amy Solorzano SURFACE GRINDER TENDER, SURFACE GRINDER TENDER-C Attending Provider, Referrin g Provider Active Team Status: Inactive Member Role Status [facility] Primary Care Provider A ctive Dr. Perico Norman DO Attending Provider, Emergency Pr ovider Active Team Status: Inactive Member Role Status Dates [facility] Primary Care Provider A ctive Dr. Fabricio Guevara MD Attending Provider, Emergency Pro vider Active Doctor Of Naprapathic Medicine Relationship Specialty Start Date End Date Amy Solorzano [address] [place] [id number] PCP - General 01/24/23 Doctor Of Naprapathic Medicine Relationship Specialty Start Date End Date Amy Solorzano NP [address] [place] [address] PCP - General Family Medicine 11/17/22 Team Status: Inactive Member Role Status Dates [facility] Primary Care Provider A ctive Dr. Javy Doss , DO Emergency Provider Active Doctor Of Naprapathic Medicine Relationship Specialty Start Date End Date Amy Solorzano NP [address] [place] [address] PCP - General Family Medicine 11/17/22 Team Status: Inactive Member Role Status Dates [facility] Primary Care Provider A ctive Dr. Javy Doss , DO Attending Provider, Emergency Pro vider Active Team Status: Inactive Member Role Status Dates [facility] Primary Care Provider A ctive Dr. Tim Vidal , DO Emergency Provider Active Doctor Of Naprapathic Medicine Relationship Specialty Start Date End Date Amy Solorzano NP [address] [place] [address] PCP - General Family Medicine 11/17/22 Doctor Of Naprapathic Medicine Relationship Specialty Start Date End Date Amy Solorzano NP [address] [place] [address] PCP - General Family Medicine 11/17/22 Team Status: Inactive Member Role Status Dates [facility] Primary Care Provider A ctive Dr. Tim Vidal , DO Attending Provider, Emergency P rovider Active Team Status: Inactive Member Role Status Dates [facility] Primary Care Provider A ctive Dr. Rickey Shepard , DO Emergency Provider Active Doctor Of Naprapathic Medicine Relationship Specialty Start Date End Date Amy Solorzano NP [address] [place] [address] PCP - General Family Medicine 11/17/22 Doctor Of Naprapathic Medicine Relationship Specialty Start Date End Date Amy Solorzano NP [address] [place] [address] PCP - General Family Medicine 11/17/22 Doctor Of Naprapathic Medicine Relationship Specialty Start Date End Date Amy Solorzano NP [address] [place] [address] PCP - General Family Medicine 11/17/22 Doctor Of Naprapathic Medicine Relationship Specialty Start Date End Date Amy SolorzanoMARIA G [address] [place] [address] PCP - General Family Medicine 11/17/22 Team [...] Team Status: Inactive Member Role Status Dates [facility] Primary Care Provider A ctive Dr. Rickey [...] Dr. Alex Christiansen DO Emergency Provider Active Doctor Of Naprapathic Medicine Relationship Specialty Start Date End Date Amy Solorzano NP [address] [place] [id number] PCP - General Family Medicine 11/17/22 Team [...] Dr. Tesfaye Mitchell DO Emergency Provider Active [facility] Primary Care Provider A ctive Team Status: Inactive Member Role Status Dates Dr. Abdirizak Forrest DPM Attending Provider, Referring Provider Active [facility] Primary Care Provider A ctive Team Status: Inactive Member Role Status Dates Dr. Sophy Gibbons Primary Care Provider Active Drew Hinson MD Attending Provider, Emergency Provid er Active Team Status: Inactive Member Role Status Dates Dr. Tesfaye Mitchell DO Attending Provider, Emergency P rovider Active [facility] Primary Care Provider A ctive Team Status: Inactive Member Role Status Dates [facility] Primary Care Provider A ctive Dr. Willie Dhillon MD Attending Provider, Emergency Provider Active Team Status: Inactive Member Role Status Dates [facility] Primary Care Provider A ctive Dr. Abdirizak Forrest DPM Attending Provider, Referring Provider Active Doctor Of Naprapathic Medicine Relationship Specialty Start Date End Date Amy Solorzano SURFACE GRINDER TENDER [address] [facility] [place] [phone] PCP - General Family Medicine 11/17/22 Doctor Of Naprapathic Medicine Relationship Specialty Start Date End Date Amy Solorzano, SURFACE GRINDER TENDER [address] [facility] [place] [phone] PCP - General Family Medicine 11/17/22 Doctor Of Naprapathic Medicine Relationship Specialty Start Date End Date Amy Solorzano, SURFACE GRINDER TENDER [address] [facility] [place] [phone] PCP - General Family Medicine 11/17/22 Doctor Of Naprapathic Medicine Relationship Specialty Start Date End Date Amy Solorzano SURFACE GRINDER TENDER [address] [facility] [place] [phone] PCP - General Family Medicine 11/17/22 Team Status: Active Member Role Status Dates Amy Solorzano VSC, SURFACE GRINDER TENDER-C Primary Care Provider Activ e Team Status: Inactive Member Role Status Dates Amy Solorzano VSC, SURFACE GRINDER TENDER-C Primary Care Provider Activ e Start: October 17, 2024 End: October 17, 2024 Amy EDWARDSC, SURFACE GRINDER TENDER-C Attending Provider Active Start: October 17, 2024 End: October 17, 2024 Team Status: Inactive Member Role Status Dates Amy EDWARDSC, SURFACE GRINDER TENDER-C Primary Care Provider Activ e Start: October 25, 2024 End: October 25, 2024 Dr. Abdirizak Forrest DPM Attending Provider Active Start: October 25, 2024 End: October 25, 2024 Dr. Abdirizak Forrest DPM Referring Provider Active Start: October 25, 2024 End: October 25, 2024 Team Status: Active Member Role Status Dates Amy BARAHONA, SURFACE GRINDER TENDER-C Primary Care Provider Activ e Start: November 25, 2024 Drew Hinson MD Emergency Provider Active Star t: November 25, 2024 Dr. Brenda Rao MD Admit Provider Active St art: November 25, 2024 Dr. Brenda Rao MD Attending Provider Active Start: November 25, 2024 Team Status: Inactive Member Role Status Dates Amy BARAHONA, SURFACE GRINDER TENDER-C Primary Care Provider Activ e Start: November [...] Active Member Role Status Dates Amy BARAHONA, SURFACE GRINDER TENDER-C Primary Care Provider Activ e Start: November [...] Active Member Role Status Dates Amy BARAHONA, SURFACE GRINDER TENDER-C Primary Care Provider Activ e Start: November [...] Active Member Role Status Dates Amy BARAHONA, SURFACE GRINDER TENDER-C Primary Care Provider Activ e Start: November [...] Active Member Role Status Dates Amy BARAHONA, SURFACE GRINDER TENDER-C Primary Care Provider Activ e Start: November [...] Active Member Role Status Dates Amy BARAHONA, SURFACE GRINDER TENDER-C Primary Care Provider Activ e Start: November [...] Member Role Status Dates Amy Rashad VSC, SURFACE GRINDER TENDER-C Primary Care Provider Activ e Start: November [...] Active Member Role Status Dates Amy BARAHONA, SURFACE GRINDER TENDER-C Primary Care Provider Activ e Start: November 28, 2024 Drew Hinson MD Emergency Provider Active Star t: November 28, 2024 Dr. Brenda Rao MD Admit Provider Active St art: November 28, 2024 Dr. Brenda Rao MD Other Provider Active St art: November 28, 2024 Dr. Annalise Welch MD Other Provider Active S tart: November 28, 2024 Dr. Gale rL DO Attending Provider Active S tart: November 28, 2024 Dr. Gale Lr , Other Provider Active Start : November 28, 2024 Team Status: Active Member Role Status Dates Dr. Tony Dwyer MD Attending Provider Active Start: October 25, 2024 Dr. Abdirizak Forrest DPM Referring Provider Active Start: October 25, 2024 Team Status: Active Member Role Status Dates Amy BARAHONA, SURFACE GRINDER TENDER-C Primary Care Provider Activ e Start: November 25, 2024 Drew Hinson MD Emergency Provider Active Star t: November 25, 2024 Dr. Brenda Roa MD Admit Provider Active St art: November [...] Inactive Member Role Status Dates Amy BARAHONA, SURFACE GRINDER TENDER-C Primary Care Provider Activ e Start: December 13, 2024 End: December 13, 2024 Amykeiko BARAHONA, SURFACE GRINDER TENDER-C Referring Provider Active Start: December 13, 2024 End: December 13, 2024 MIGUEL A South Attending Provider Active Start: December 13, 2024 End: December 13, 2024 Team Status: Inactive Member Role Status Dates Amy Rashad BARAHONA, SURFACE GRINDER TENDER-C Primary Care Provider Activ e Start: December 13, 2024 End: December 13, 2024 MIGUEL A South Attending Provider Active Start: December 13, 2024 End: December 13, 2024 MIGUEL A South Referring Provider Active Start: December 13, 2024 End: December 13, 2024 Team Status: Inactive Member Role Status Dates Amy Rashad BARAHONA, SURFACE GRINDER TENDER-C Primary Care Provider Activ e Start: December 25, 2024 End: December 25, 2024 MIGUEL A South Attending Provider Active Start: December 25, 2024 End: December 25, 2024 Kalee Peter Referring Provider Active Start: December 25, 2024 End: December 25, 2024 INFORMATION SOURCE (unrecogn ized section and content) DATE CREATED AUTHOR 01/24/2023 [facility] DATE CREATED AUTHOR AUTHOR'S ORGANIZ ATION 02/18/2023 [facility] DATE CREATED AUTHOR AUTHOR'S ORGANIZ ATION 04/19/2023 [facility] ([place]) DATE CREATED AUTHOR AUTHOR'S ORGANIZ ATION 02/02/2024 [facility] DATE CREATED AUTHOR AUTHOR'S ORGANIZ ATION 07/05/2024 [facility] DATE CREATED AUTHOR AUTHOR'S ORGANIZ ATION 12/28/2024 [facility] Scheduled Active and Recently Administ ered Medications [...] dose 1054 (Given - Provid er: Tamica Penaloza RN) diphenhydrAMINE (BENADryl) injection 25 mg (COMPLETED) [...] BE BASED ON THE PRIMARY CLINICAL RECORDS. [employer] [facility]. provides no warranty or guarantee of the accuracy or completeness of information in this document.
[2024-12-30] MEDS: Hyoscyamine Sulfate 0.125 MG Tablet 0.25 MG SL (13:05)
[2024-12-30] MEDS: Haloperidol Lactate 5 MG/ML Vial 2 MG IV (13:05)
[2024-12-30 13:12] LABS: BETA-HYDROXYBUTYRATE 0.3 mmol/L (0.0-0.3)
[2024-12-30] MEDS: 0.9% Normal Saline (1000mL) 1,000 ML 250 ML IV (13:51)
[2024-12-30 14:08] LABS: Magnesium 1.8 mg/dL (1.5-2.2); Phosphorus 1.5 mg/dL (2.7-4.5)
[2024-12-30 14:19] LABS: Bedside Glucose 129 mg/dL (74-106)
[2024-12-30 14:34] LABS: Osmolality, Serum 302 mOsm/KG (275-295)
[2024-12-30 14:51] LABS: Anion Gap 13 (5-15); BUN 13 mg/dL (4-19); BUN/Creat Ratio 12.1 RATIO (10-20); Calcium,Total 8.6 mg/dL (7.6-11.0); Chloride 104 mmol/L (98-108); Creatinine, Serum 1.03 mg/dL (0.70-1.20); EST Glomerular Filtration Rate 74 (>60); Estimated Creatinine Clearance 97.47 ml/min (50-250); Glucose 133 mg/dL (70-99); Potassium 3.4 mmol/L (3.3-5.1); Sodium Level 141 mmol/L (133-145)
[2024-12-30] MEDS: KCL 20MEQ in D5.45NS 20 MEQ/1,000 ML IV.SOLN. 250 MEQ IV (14:53)
[2024-12-30 15:07] LABS: Bedside Glucose 99 mg/dL (74-106)
[2024-12-30 15:57] LABS: Blood Gas Specimen Type VEN; O2 Delivery Device Room Air; SITE Not entered; VBG BASE EXCESS 5 mmol/L (-1.0-3.5); VBG Bicarbonate 29 mmol/L (22-26); VBG PO2 34 mmHg (25-40); VBG SO2 68 % (50-70); VBG TCO2 30 mmol/L (23-33); VBG pCO2 42.2 mmHg (41-51); VBG pH 7.45 (7.32-7.42)
[2024-12-30 16:11] LABS: Bedside Glucose 131 mg/dL (74-106)
[2024-12-30 17:57] LABS: Anion Gap 11 (5-15); BUN 11 mg/dL (4-19); BUN/Creat Ratio 11.9 RATIO (10-20); Calcium,Total 8.1 mg/dL (7.6-11.0); Chloride 104 mmol/L (98-108); Creatinine, Serum 0.94 mg/dL (0.70-1.20); EST Glomerular Filtration Rate 83 (>60); Glucose 185 mg/dL (70-99); Potassium 3.5 mmol/L (3.3-5.1); Sodium Level 139 mmol/L (133-145)
[2024-12-30 18:20] LABS: Bedside Glucose 167 mg/dL (74-106)
[2024-12-30 18:20] LABS: Bedside Glucose 179 mg/dL (74-106)
[2024-12-30] MEDS: KCL 20MEQ in 0.45%NS 20 MEQ/1,000 ML IV.SOLN. 125 MEQ IV (18:44)
[2024-12-30] MEDS: proCHLORPERazine 10 MG/2 ML Vial 5 MG IV (18:44)
[2024-12-30 19:18] LABS: Bedside Glucose 108 mg/dL (74-106)
[2024-12-30 20:32] LABS: Bedside Glucose 96 mg/dL (74-106)
[2024-12-30] MEDS: KCL 20MEQ in D5.45NS 20 MEQ/1,000 ML IV.SOLN. 125 MEQ IV (20:45)
[2024-12-30] MEDS: Senna/Docusate Sodium 1 Tablet 2 TABLET PO (21:29)
[2024-12-30] MEDS: MELATONIN 10 MG TABLET PO (21:29)
[2024-12-30 21:55] LABS: Anion Gap 13 (5-15); BUN 10 mg/dL (4-19); BUN/Creat Ratio 11.9 RATIO (10-20); Calcium,Total 8.1 mg/dL (7.6-11.0); Carbon Dioxide 21.8 mmol/L (21.0-32.0); Chloride 106 mmol/L (98-108); Creatinine, Serum 0.83 mg/dL (0.70-1.20); EST Glomerular Filtration Rate 96 (>60); Estimated Creatinine Clearance 120.96 ml/min (50-250); Glucose 109 mg/dL (70-99); Potassium 3.4 mmol/L (3.3-5.1); Sodium Level 141 mmol/L (133-145)
[2024-12-30 21:58] LABS: Bedside Glucose 109 mg/dL (74-106)
[2024-12-30 22:17] LABS: BETA-HYDROXYBUTYRATE 0.6 mmol/L (0.0-0.3)
[2024-12-30 22:56] LABS: Bedside Glucose 135 mg/dL (74-106)
[2024-12-31] VITALS (9 sets, daily range): BP systolic 113–127; BP diastolic 62–90; PULSE 71–85; RESP 14–23; TEMP 36.6–36.9; O2SAT 93–100; BMI 39.2
[2024-12-31 00:37] LABS: Bedside Glucose 130 mg/dL (74-106)
[2024-12-31 00:54] LABS: Bedside Glucose 104 mg/dL (74-106)
[2024-12-31] MEDS: 0.9% Saline Lock 10 ML Syringe IV ×5 (01:35→08:25)
[2024-12-31 01:57] LABS: Bedside Glucose 99 mg/dL (74-106)
[2024-12-31 01:59] LABS: Anion Gap 11 (5-15); BUN 9 mg/dL (4-19); BUN/Creat Ratio 10.6 RATIO (10-20); Chloride 106 mmol/L (98-108); Creatinine, Serum 0.84 mg/dL (0.70-1.20); EST Glomerular Filtration Rate 94 (>60); Estimated Creatinine Clearance 119.52 ml/min (50-250); Glucose 106 mg/dL (70-99); Potassium 3.3 mmol/L (3.3-5.1); Sodium Level 140 mmol/L (133-145)
[2024-12-31 02:54] LABS: Bedside Glucose 84 mg/dL (74-106)
[2024-12-31] MEDS: Potassium Chloride 10mEq/100mL 10 MEQ/100 ML IV.SOLN. 100 MEQ IV BOLUS ×4 (02:54→06:42)
[2024-12-31] MEDS: proCHLORPERazine 10 MG/2 ML Vial 5 MG IV (03:37)
[2024-12-31 03:58] LABS: Bedside Glucose 106 mg/dL (74-106)
[2024-12-31] MEDS: KCL 20MEQ in D5.45NS 20 MEQ/1,000 ML IV.SOLN. 125 MEQ IV (04:03)
[2024-12-31 05:30] LABS: Bedside Glucose 112 mg/dL (74-106)
[2024-12-31 05:59] LABS: Bedside Glucose 120 mg/dL (74-106)
[2024-12-31 06:01] LABS: Anion Gap 12 (5-15); BUN 8 mg/dL (4-19); BUN/Creat Ratio 10.2 RATIO (10-20); Calcium,Total 8.2 mg/dL (7.6-11.0); Carbon Dioxide 21.3 mmol/L (21.0-32.0); Chloride 106 mmol/L (98-108); Creatinine, Serum 0.82 mg/dL (0.70-1.20); EST Glomerular Filtration Rate 97 (>60); Glucose 129 mg/dL (70-99); Potassium 3.6 mmol/L (3.3-5.1); Sodium Level 138 mmol/L (133-145)
[2024-12-31] MEDS: ALPRAZolam 0.25 MG Tablet PO (06:18)
[2024-12-31] MEDS: Morphine 2 MG/ML Syringe IV (06:28)
[2024-12-31 06:58] LABS: Bedside Glucose 136 mg/dL (74-106)
[2024-12-31 07:12] LABS: BETA-HYDROXYBUTYRATE 0.1 mmol/L (0.0-0.3)
[2024-12-31 07:25] LABS: Hemoglobin A1c 8.5 % (<=5.6)
[2024-12-31] MEDS: Insulin Glargine-YFGN 100 UNIT/ML Pen SC (08:09)
[2024-12-31] MEDS: Potassium Phosphate 30 MM in 0.9% Normal Saline (250mL Bag) 250 ML 42 MM IV (08:12)
[2024-12-31] MEDS: Metoclopramide 10 MG/2 ML Vial IV (08:25)
--- NOTE | 2024-12-31 08:38 | PCM.DC ---
Discharge Instructions Diet Discharge Diet: Low fat / Low cholesterol, 1800 Calorie Control Diet and 2000 mg Sodium Diet Dressing / Incision Discharge Activity: Return to Normal Activity Weight Bearing Status: Weight bearing as tolerated Dressing / Incision Call your doctor if you observe: Fever of 101 or Higher, Coldness, Increased Pain, Numbness or Tingling, Change in Color, Inability to urinate, Inability to have a bowel movement, Shortness of breath, Dizziness, Fainting spells, Swelling in the ankles, Chest pain, Prolonged hiccupping, Increased palpitations (irregular heartbeat) and Calf discomfort Follow Up Care When: IN 2 WEEKS Test Results: Test results from this visit will be discussed in further detail at your follow-up appointment, if applicable. Discharge Plan Admission Admit Date/Time: 12/30/24 12:28 Attending Provider: David Bain Primary Care Provider: Amy Dasilva Discharge Orders/Prescriptions Prescriptions: No Action Linzess 145 mcg capsule 145 mcg PO QAM Qty: 30 2RF insulin glargine [Lantus Solostar U-100 Insulin] 100 unit/mL (3 mL) insulin pen 20 unit SUBCUT BID Patient Comments: PT HAS BEEN TAKING 35-40 UNITS TWICE DAILY albuterol sulfate 90 mcg/actuation HFA aerosol inhaler 2 puff INHALATION Q4H PRN (Reason: shortness of breath or wheezing) Trulicity 4.5 mg/0.5 mL pen injector 4.5 mg subcut SA Referrals / Follow Up: Amy Dasilva, SHALE PLANER OPERATOR HELPER-C [Primary Care Provider] -
--- NOTE | 2024-12-31 08:57 | DS.PCM_ITS ---
Providers Date of Admission: 12/30/24 Date of Discharge: 12/31/24 Primary Care Physician: Amy Dasilva [facility], [facility] Reason For Visit: DKA Diagnosis Discharge Diagnosis (1) Diabetic ketoacidosis: Status: Acute Code(s): E11.10 - Type 2 diabetes mellitus with ketoacidosis without coma Qualifiers: Diabetes mellitus complication detail: without coma Diabetes mellitus type: type 2 Qualified Code(s): E11.10 - Type 2 diabetes mellitus with ketoacidosis without coma (2) NAI (acute kidney injury): Status: Acute Code(s): N17.9 - Acute kidney failure, unspecified Plan This is a 34-year-old female being admitted for nausea vomiting and generalized nonspecific abdominal pain consistent with DKA. 1. DKA with history of DM type II, complicated with peripheral neuropathy, diabetic ulcer in the past right foot status post TMA: Patient is being admitted in ICU. Labs shows bicarb 19, AG 20, K3.4. Serum magnesium and phosphorus and ABG ordered. No ABG. Glucose 359 in BMP. Patient had 2 L of IV fluid normal saline bolus in ED and then started on IV fluid and insulin drip as per DKA protocol. 12/31: DKA has resolved with anion gap closed x 2. A1c 8.5%. Serum osmolarity 302. Hypophosphatemia, phosphorus 1.5, K3.6, low normal. IV potassium phosphate was ordered. Patient is still nauseous and vomited and Reglan 10 mg IV given. Reglan 5 mg IV. Also ordered. Insulin drip to overlap with Lantus subcu insulin was ordered but patient decided to sign AMA and go home. Risk of recurrence/relapse of DKA informed. Patient still nauseous and vomiting therefore advised to stay. She refused and signed AMA 2. Nausea/vomiting/generalized abdominal pain probably due to DKA: She has history of cyclical vomiting disorder and was admitted for stercoral colitis in December 03. Completed antibiotic. Mild leukocytosis but no fever probably due to DKA. History of constipation but moving her bowels. Continue stool softener 3. Chronic asthma, exact classification unclear probably intermittent asthma: Continue as needed albuterol. Not clinic asthma exacerbation 4. Anxiety, insomnia and depression and history of substance use disorder: Xanax 0.25 mg 3 times daily as needed ordered. Previous U tox was positive of marijuana and ecstasy. U tox is ordered. 5. Obesity grade 3: BMI is 37.7 with comorbidities as mentioned above. Patient not taking Trulicity for 2 weeks. Weight loss counseling done. [place] consult DVT prophylaxis, low risk: Early ambulation encouraged Living will/advanced directive/end of life care: Patient does not have living will or advanced directive. She does not have the year power of litigation attorney for health. After discussion of benefits/risks procedures involved with full code, DNR CC arrest and DNR CC, the patient opted for full code. Patient does want artificial life support including intubation, tube feed, ventilator and/chest compression, central venous catheter, vasopressor and DC shock if needed Total time spent in [id number] encounter in discussion of advanced directive 17 minutes. Medications at Discharge Home Medications insulin glargine 100 unit/mL (3 mL) subcutaneous pen (Lantus Solostar U-100 Insulin) 20 unit subcut BID diabetes 08/12/22 albuterol sulfate 90 mcg/actuation aerosol inhaler 2 puff inhalation Q4H PRN shortness of breath or wheezing 11/25/24 dulaglutide 4.5 mg/0.5 mL subcutaneous pen injector (Trulicity) 4.5 mg subcut SA 11/25/24 linaclotide 145 mcg capsule (Linzess) 145 mcg PO QAM #30 caps 12/13/24 Physical Exam Narrative Seen and examined. Patient feeling nauseous and vomited in the morning when she tried ice chips. Discussed with the nursing staff and Reglan 10 mg IV was given. Patient was crying and wants to sign AMA. She is fully cognitively intact to make decision and autonomy respected. Risk and complications of signing AMA explained. Physical exam General: Alert, Oriented x3, Cooperative HEENT: Atraumatic, PERRLA, EOMI, Normocephalic. Oral: Oral mucosa dry. No Gingival or Mucosal Lesions/ Ulcerations Neck: Supple, No JVD, Negative Carotid Bruits Chest wall/Lungs: Air entry equal in bilateral lung bases. No crepitation/rhonchi Cardiovascular: Regular rate and rhythm, Normal S1,S2, No M/G/R Abdomen: Bowel Sounds Present, Soft, mild diffuse tenderness. Non-Distended : No dysuria. No renal angle tenderness. No suprapubic tenderness. Extremities: No edema, Capillary Refill Less than 3 Seconds Skin: No rashes, No breakdown Musculoskeletal: No Tenderness to Palpation of Joints or Extremities. Status post right TMA Neurological: Cranial nerves II-XII grossly intact, DTR 2+/4. No acute focal neurological deficit. Psych/Mental Status: Flat affect, crying Weight / BMI Weight Weight: 242 lb 11.663 oz Body Mass Index (BMI) 39.2 ABG / Lab / Microbiology Data 12/30/24 10:50 12/31/24 04:58 Laboratory: Laboratory Results - last 24 hr 12/30/24 10:50: Serum Osmolality 302 H, Phosphorus 1.5 L, Magnesium 1.8, b- Hydroxybutyric mmol/L 0.3 12/30/24 11:32: Urine Color Yellow, Urine Clarity Sl. Cloudy, Urine pH 5.0, Ur Specific [place] 1.025, Urine Protein 30 H, Urine Glucose (UA) 1000 H, Urine Ketones 50 H, Urine Occult Blood 10 H, Urine Nitrite Negative, Urine Bilirubin 3 H, Urine Urobilinogen 1 H, Ur Leukocyte Esterase 500 H, Urine RBC 0 SEEN, Urine WBC 5-10 SEEN, Ur Squamous Epith Cells 10-25 SEEN, Urine Bacteria 0 SEEN, Urine Mucus 0 SEEN, Urine Opiates Screen NEGATIVE, U Buprenorphine Qual NEGATIVE, Ur Oxycodone Screen NEGATIVE, Urine Methadone Screen NEGATIVE, Urine Fentanyl Screen NEGATIVE, Ur Barbiturates Screen NEGATIVE, Ur Phencyclidine Scrn NEGATIVE, Ur Amphetamines Screen NEGATIVE, U Benzodiazepines Scrn NEGATIVE, Urine Cocaine Screen NEGATIVE, U Cannabinoids Screen PRESUMPTIVE POSITIVE 12/30/24 13:57: POC Glucose 129 H 12/30/24 14:05: Sodium 141, Potassium 3.4, Chloride 104, Carbon Dioxide 24.0, Anion Gap 13, BUN 13, Creatinine 1.03, Estim Creat Clear Calc 97.47, Est GFR (MDRD) Non-Af 74, BUN/Creatinine Ratio 12.1, Glucose 133 H, Calcium 8.6 12/30/24 14:47: POC Glucose 99 12/30/24 15:50: POC Glucose 131 H 12/30/24 17:00: Sodium 139, Potassium 3.5, Chloride 104, Carbon Dioxide 24.0, Anion Gap 11, BUN 11, Creatinine 0.94, Estim Creat Clear Calc 106.80, Est GFR (MDRD) Non-Af 83, BUN/Creatinine Ratio 11.9, Glucose 185 H, Calcium 8.1 12/30/24 17:02: POC Glucose 179 H 12/30/24 17:55: POC Glucose 167 H 12/30/24 18:56: POC Glucose 108 H 12/30/24 20:02: POC Glucose 96 12/30/24 21:06: POC Glucose 109 H 12/30/24 21:10: Sodium 141, Potassium 3.4, Chloride 106, Carbon Dioxide 21.8, Anion Gap 13, BUN 10, Creatinine 0.83, Estim Creat Clear Calc 120.96, Est GFR (MDRD) Non-Af 96, BUN/Creatinine Ratio 11.9, Glucose 109 H, Calcium 8.1, b- Hydroxybutyric mmol/L 0.6 H 12/30/24 22:34: POC Glucose 135 H 12/30/24 23:33: POC Glucose 130 H 12/31/24 00:31: POC Glucose 104 12/31/24 01:23: Sodium 140, Potassium 3.3, Chloride 106, Carbon Dioxide 23.0, Anion Gap 11, BUN 9, Creatinine 0.84, Estim Creat Clear Calc 119.52, Est GFR (MDRD) Non-Af 94, BUN/Creatinine Ratio 10.6, Glucose 106 H, Calcium 8.0 12/31/24 01:30: POC Glucose 99 12/31/24 02:35: POC Glucose 84 12/31/24 03:32: POC Glucose 106 12/31/24 04:34: POC Glucose 112 H 12/31/24 04:58: Sodium 138, Potassium 3.6, Chloride 106, Carbon Dioxide 21.3, Anion Gap 12, BUN 8, Creatinine 0.82, Estim Creat Clear Calc 123.80, Est GFR (MDRD) Non-Af 97, BUN/Creatinine Ratio 10.2, Glucose 129 H, Hemoglobin A1c 8.5 H , Calcium 8.2, b-Hydroxybutyric mmol/L 0.1 12/31/24 05:34: POC Glucose 120 H 12/31/24 06:35: POC Glucose 136 H 12/31/24 07:45: POC Glucose 146 H 12/31/24 08:47: POC Glucose 147 H ABG: ABG 12/30/24 15:54 Specimen Type ESTRELLA Sample Site Not entered VBG pH 7.45 H VBG pO2 34 VBG HCO3 29 H VBG Total CO2 30 VBG O2 Sat (Calc) 68 VBG Base Excess 5 H POC Mix VBG pCO2 Pt Tmp 42.2 O2 Delivery Device Room Air D/C Instructions DC O2, CPAP, BIPAP Needs Home O2 Discharge instructions: No Meaningful Use Info Meaningful Use Meaningful Use Diagnoses (Choose all that apply): None applicable Ischemic Stroke Statin Dosing Therapy Reference: STATIN DOSE THERAPY REFERENCE: * Patients > 75 years receive moderate or high dose statin therapy. * Patients 75 years or YOUNGER should receive HIGH intensity statin dose unless contraindicated. You will be required to document reason for non-treatment if statin daily dose does not meet guidelines. HIGH DOSE STATIN THERAPY DAILY Atorvastatin > than or = to 40 mg Rosuvastatin > than or = to 20 mg Amlodipine + Atorvastatin > than or = to 2.5/40 mg Ezetimibe + Simvastatin 10/80 mg Simvastatin 80mg Discharge Plan Admission Admit Date/Time: 12/30/24 12:28 Primary Reason for Your Visit: DKA resolved Attending Provider: David Bain Primary Care Provider: Amy Dasilva Discharge Orders/Prescriptions Prescriptions: No Action Linzess 145 mcg capsule 145 mcg PO QAM Qty: 30 2RF insulin glargine [Lantus Solostar U-100 Insulin] 100 unit/mL (3 mL) insulin pen 20 unit SUBCUT BID Patient Comments: PT HAS BEEN TAKING 35-40 UNITS TWICE DAILY albuterol sulfate 90 mcg/actuation HFA aerosol inhaler 2 puff INHALATION Q4H PRN (Reason: shortness of breath or wheezing) Trulicity 4.5 mg/0.5 mL pen injector 4.5 mg subcut SA Referrals / Follow Up: Amy Dasilva, [facility] [Primary Care Provider] - Disposition Disposition (needs filled in before D/C Order can be placed): Against Medical Advice Charges/Coding Visit Charges Inpatient E&M: 83929 Disch Hosp >30min
--- NOTE | 2024-12-31 09:02 | NURSING ---
0845 Pt stated that she wanted to sign out AMA advised pt of the risks as she is still on the insulin drip and we need to get her condition under control Pt stated acknowledgement 0850 Dr. Bain notified and acknowledged 0900 pt disconnected from [facility]. IVs Discontinued. Educated patient on the medications that were given this am. AMA paperwork signed . Pt stated that she is going to walk home
[2024-12-31 09:07] LABS: Bedside Glucose 147 mg/dL (74-106)
[2024-12-31 09:20] LABS: Bedside Glucose 146 mg/dL (74-106)
== END 2024-12-31 09:04 | disposition left against medical advice (07) | DRG 420 ==
LOC: ED 12:02 → ICU 12:54
PROVIDERS: Internal Medicine; Admitting Provider Internal Medicine; Emergency Provider Emergency Medicine; PCP Nurse Practitioner Family; Visit Provider Internal Medicine
DX: E11.10 Type 2 diabetes mellitus with ketoacidosis without coma (principal); N17.9 Acute kidney failure, unspecified; J45.20 Mild intermittent asthma, uncomplicated; E11.42 Type 2 diabetes mellitus with diabetic polyneuropathy; F12.10 Cannabis abuse, uncomplicated; E66.9 Obesity, unspecified; Z89.431 Acquired absence of right foot; F60.3 Borderline personality disorder; Z79.4 Long term (current) use of insulin; E11.65 Type 2 diabetes mellitus with hyperglycemia; K58.9 Irritable bowel syndrome, unspecified; F41.8 Other specified anxiety disorders; K21.9 Gastro-esophageal reflux disease without esophagitis; R11.15 Cyclical vomiting syndrome unrelated to migraine; K58.1 Irritable bowel syndrome with constipation; Z83.3 Family history of diabetes mellitus; Z87.891 Personal history of nicotine dependence; Z79.899 Other long term (current) drug therapy; Z68.37 Body mass index [BMI] 37.0-37.9, adult; Z68.38 Body mass index [BMI] 38.0-38.9, adult; Z79.85 Long-term (current) use of injectable non-insulin antidiabetic drugs; G47.00 Insomnia, unspecified; Z91.199 Patient's noncompliance with other medical treatment and regimen due to unspecified reason
CPT/HCPCS: 80048; 80053; 80307; 81001; 81025; 82010; 82803; 82962; 83036; 83690; 83735; 83930; 84100; 84443; 84703; 85025; 87086; 87088; 93005; 94668; 99284; 99285; A4216; J2405

== ENCOUNTER 2024-12-31 18:32 | Inpatient (IN) | payer MEDICAID, SELFPAY ==
[2024-12-31] VITALS (8 sets, daily range): BP systolic 120–156; BP diastolic 84–128; PULSE 79–96; RESP 11–23; TEMP 36.4–36.8; O2SAT 97–100; BMI 38.4; BMI 39.0
--- NOTE | 2024-12-31 19:10 | EKG12_ITS ---
Test Reason : dka Blood Pressure : */* mmHG Vent. Rate : 82 BPM Atrial Rate : 82 BPM P-R Int : 144 ms QRS Dur : 78 ms QT Int : 362 ms P-R-T Axes : 40 0 37 degrees QTcB Int : 422 ms Normal sinus rhythm Minimal voltage criteria for LVH, may be normal variant ( R in aVL ) Confirmed by KIYA BOYCE, DESTINY ([id number]), newspaper editor CHRISTINA WALKER ([id number]) on 01/02/2025 6:46:51 AM Referred By: Confirmed By: DESTINY HUERTAS MD
--- NOTE | 2024-12-31 19:13 | EDS_ITS ---
HPI History of Present Illness Chief Complaint: Hyperglycemia Informant: patient Narrative Narrative: Returns to ED after signout remained in the ICU this morning. She was admitted by myself yesterday for DKA as she was taken off her Trulicity a month ago secondary to admission for stercoral colitis. She reported no marijuana use for over a month however had a positive test yesterday. She states she had anxiety attack this morning therefore left. She is still on the insulin pump was given her Lantus of 25 units. She went home's labs she states she woke up she vomited multiple times again. States abdominal cramping similarly previously. She states she has been checking her glucoses been continuing to climb up. No cough. No urinary symptoms. Prior similar symptoms: Yes PFSH PFSH Medical History (Updated 12/31/24 @ 23:[address] Poli Barfield DO) Type 2 diabetes mellitus with peripheral neuropathy Diabetes GERD (gastroesophageal reflux disease) Wears glasses History of MRSA infection Borderline personality disorder Alcohol use Insulin dependent diabetes mellitus Dietary restriction Heartburn Smoker Shortness of breath on exertion Leg cramps Neuropathy, diabetic Elevated serum creatinine Failure of outpatient treatment Nausea and vomiting Diabetes mellitus with diabetic polyneuropathy Type 2 diabetes mellitus with foot ulcer Anxiety Depression Constipation Asthma Diabetes Home Medications ?Medication ?Instructions ?Recorded ?Last Taken ?Type insulin glargine 100 unit/mL (3 20 unit subcut BID doreen betes 08/12/22 12/29/24 History mL) subcutaneous pen (Lantus Solostar U-100 Insulin) albuterol sulfate 90 mcg/actuation 2 puff inhalation Q 4H PRN 11/25/24 Unknown History aerosol inhaler shortness of breath or wheez ing dulaglutide 4.5 mg/0.5 mL 4.5 mg subcut SA 11/25/24 History subcutaneous pen injector (Trulicity) linaclotide 145 mcg capsule 145 mcg PO QAM #30 caps 12/29/24 Rx (Linzess) Allergy/AdvReac Type Severity Reaction Status Date / Time No Known Allergies Allergy Verified 12/31/24 18:33 Family History Other Bleeding disorder Cancer Diabetes Hypertension Surgical History Hx of foot surgery Hx of foot surgery Social History Smoking Status: Former smoker alcohol intake: never substance use type: does not use what type of physical activity do you participate in: none ROS ROS ED Constitutional Constitutional ED: Denies chills, fever(s) or sweats ENT ENT ED: Denies sore throat Cardiovascular Cardiovascular: Denies chest pain, leg edema, palpitations or racing heartbeat Respiratory/Chest Respiratory/Chest: Denies cough, dyspnea or dyspnea on exertion Gastrointestinal Gastrointestinal: Reports abdominal pain, nausea and vomiting; Denies diarrhea Genitourinary Genitourinary ED: Denies dysuria, hematuria or urinary frequency Musculoskeletal Musculoskeletal: Denies back pain, extremity pain or neck pain Integumentary Denies rash or wounds Neurologic Neurologic: Denies headache(s), paresthesias or weakness EXAM Physical Exam Const Vital Signs: 12/31/24 18:33 12/31/24 19:33 12/31/24 19:37 Temperature 97.6 F L Temperature Source Temporal Pulse Rate 96 84 Respiratory Rate 16 20 H Respiratory Effort Normal Non-Labored Respiratory Pattern Tachypnea Blood Pressure 153/128 H 120/105 H Blood Pressure Mean 136 110 Pulse Ox 100 100 Oxygen Delivery Method Room Air Room Air 12/31/24 20:00 12/31/24 21:00 12/31/24 22:00 Temperature Temperature Source Pulse Rate 79 94 91 Respiratory Rate 22 H 23 H 20 H Respiratory Effort Respiratory Pattern Blood Pressure 151/90 H 146/89 H 143/85 H Blood Pressure Mean 110 108 104 Pulse Ox 100 97 97 Oxygen Delivery Method Room Air Room Air Room Air Positive well nourished and well developed Constitutional Narrative: Tearful holding emesis bag. General Appearance ED: well developed HEENT Reports moist mucous membranes normocephalic and atraumatic Eyes General Eye ED: Yes normal appearance of both eyes Neck full ROM Chest Wall Chest: Negative for tenderness Resp normal respiratory effort and normal air movement Effort and Inspection: symmetric chest movement; Negative for respiratory distress Cardio regular rate, regular rhythm and no murmurs Peripheral Pulses: pulses 2+ throughout GI normal to inspection, nondistended, normoactive bowel sounds GI Narrative: Mild generalized tenderness without guarding or rebound. Palpation: Negative for guarding or rebound tenderness present Extremity normal to inspection General Extremety ED: Negative for edema or tenderness General Extremity: Negative for edema Neuro oriented x3 and no sensory deficits noted Sensorium / Orientation: awake and alert Skin no rashes or lesions noted and no wounds MDM MDM MDM Narrative Medical decision making narrative: Interventions / MDM: Differential diagnosis: Diabetic ketoacidosis, nausea vomiting, cyclic vomiting syndrome Diagnosis considered but do not suspect: N/A My EKG interpretation: N/A Imaging independently reviewed and interpreted by myself: N/A External documents reviewed: Discharge summary with patient signed AMA while being bridged with Lantus and insulin drip. Test considered but not ordered:N/A ED course: Tearful holding emesis bag. States glucose has been rising with naus ea and vomiting. DKA labs were ordered 2 L of fluid ordered. Will order cyclic vomiting medication of Ativan Pepcid and Zofran. VBG pH is 7.49 CO2 30 O2 21. 2135: Patient required edition no cyclic vomiting medications Compazine Benadryl and fluids. She is sleeping currently. She had a glucose of 1 6 in the lab however did have beta hydroxybutyrate elevated at 0.6 her gap was normal high at 15. She had 2 L of fluid ordered. Currently reevaluation she is sleeping. Repeat BMP is pending. Glucose 152 urine 100 leukocytes, 3+ bacteria. 2230: Repeat BMP gap down to 13. Did resend for repeat beta hydroxybutyrate. However patient is only on long-acting insulin. I discussed with hospitalist Dr. Teresa, discussed patient's history and presentation yesterday. We do agree she could be euglycemic diabetic ketoacidosis he recommends restarting insulin drip along with D5 half-normal saline with 20 mEq of potassium to run at 150. We will admit her to ICU for further management. Later patient reporting some for pain for cramping shows nonsurgical abdomen. Levsin ordered. Re-evaluation: stable Disposition discussed with patient/family/significant other: Patient Case discussed with consulting clinician: Hospitalist This note was generated with [employer] dictation software. It may contain incorrect words, spelling, and punctuation that were not noted in checking the note before signing. Lab Data Attestation: I reviewed the patient's lab results. Labs: Laboratory Results - last 24 hr 12/31/24 12/31/24 12/31/24 18:39 19:30 19:43 WBC 9.9 RBC 4.53 Hgb 12.4 Hct 38.0 MCV 83.9 MCH 27.4 MCHC 32.6 RDW Std Deviation 43.4 RDW Coeff of John 14.3 Plt Count 400 MPV 9.5 Immature Gran % (Auto) 0.700 Neut % (Auto) 64.4 Lymph % (Auto) 27.7 [place] % (Auto) 6.4 Eos % (Auto) 0.3 Baso % (Auto) 0.5 Absolute Neuts (auto) 6.4 Absolute Lymphs (auto) 2.74 Nucleated RBC % 0 Sodium 140 Potassium 3.8 Chloride 105 Carbon Dioxide 20.4 L Anion Gap 15 BUN 7 Creatinine 0.99 Estim Creat Clear Calc 101.44 Est GFR (MDRD) Non-Af 77 BUN/Creatinine Ratio 7.1 L Glucose 160 H Calcium 9.1 b-Hydroxybutyric mmol/L 0.6 H Urine Color Yellow Urine Clarity Cloudy Urine pH 6.0 Ur Specific [place] 1.020 Urine Protein 30 H Urine Glucose (UA) Normal Urine Ketones 5 H Urine Occult Blood 25 H Urine Nitrite Negative Urine Bilirubin Negative Urine Urobilinogen Normal Ur Leukocyte Esterase 100 H Urine RBC 0 SEEN Urine WBC 0-5 SEEN Ur Squamous Epith Cells 0-5 SEEN Urine Bacteria 3+ Urine Mucus 0 SEEN POC Glucose 140 H 152 H 12/31/24 12/31/24 21:20 21:35 WBC RBC Hgb Hct MCV MCH MCHC RDW Std Deviation RDW Coeff of John Plt Count MPV Immature Gran % (Auto) Neut % (Auto) Lymph % (Auto) [place] % (Auto) Eos % (Auto) Baso % (Auto) Absolute Neuts (auto) Absolute Lymphs (auto) Nucleated RBC % Sodium 139 Potassium 3.7 Chloride 108 Carbon Dioxide 18.2 L Anion Gap 13 BUN 7 Creatinine 0.85 Estim Creat Clear Calc 118.14 Est GFR (MDRD) Non-Af 93 BUN/Creatinine Ratio 8.0 L Glucose 177 H Calcium 8.2 b-Hydroxybutyric mmol/L Urine Color Urine Clarity Urine pH Ur Specific [place] Urine Protein Urine Glucose (UA) Urine Ketones Urine Occult Blood Urine Nitrite Urine Bilirubin Urine Urobilinogen Ur Leukocyte Esterase Urine RBC Urine WBC Ur Squamous Epith Cells Urine Bacteria Urine Mucus POC Glucose 169 H ABG Data ABG results: ABG 12/31/24 19:36 Specimen Type ESTRELLA Sample Site Not entered VBG pH 7.49 H VBG pO2 22 L VBG HCO3 24 VBG Total CO2 25 VBG O2 Sat (Calc) 43 L VBG Base Excess 0 POC Mix VBG pCO2 Pt Tmp 30.7 L O2 Delivery Device Room Air Critical Care Time Critical Care Time: Yes Critical care time (excluding procedures): 30-74 minutes, Discussing w/Patient &/or Family/Congregational Care Pastor, Arranging Admission or Transfer, Performing Direct Patient Care at Bedside and - (35 minutes) Discharge Plan Triage Chief Complaint: Hyperglycemia ED Provider: Poli Barfield Dx/Rx/DC Orders Clinical Impression: Cyclic vomiting syndrome, History of diabetes mellitus, Diabetic ketoacidosis Prescriptions: No Action Linzess 145 mcg capsule 145 mcg PO QAM Qty: 30 2RF insulin glargine [Lantus Solostar U-100 Insulin] 100 unit/mL (3 mL) insulin pen 20 unit SUBCUT BID Patient Comments: PT HAS BEEN TAKING 35-40 UNITS TWICE DAILY albuterol sulfate 90 mcg/actuation HFA aerosol inhaler 2 puff INHALATION Q4H PRN (Reason: shortness of breath or wheezing) Trulicity 4.5 mg/0.5 mL pen injector 4.5 mg subcut SA Primary Care Provider: Amy Dasilva Referrals: Amy Dasilva, DIRECTOR ENGINEERING-C [Primary Care Provider] - Print Language: Italian Disposition Disposition: [facility]
[2024-12-31] MEDS: 0.9% Normal Saline (1000mL) 1,000 ML 999 ML IV ×2 (19:31→20:55)
[2024-12-31] MEDS: Ondansetron 4 MG/2 ML Vial IV (19:32)
[2024-12-31] MEDS: Lorazepam 2 MG/ML WCH Syringe 0.5 MG IV (19:32)
[2024-12-31] MEDS: Famotidine 200 MG/20 ML MDV 20 MG in 0.9% Normal Saline (Pres. free 8 ML 300 MG IV (19:34)
[2024-12-31 19:36] LABS: Mucous, Urine 0 SEEN /hpf (<or=2+); Red Blood Cells-Urine 0 SEEN /hpf (0-5)
[2024-12-31 19:39] LABS: Blood Gas Specimen Type VEN; O2 Delivery Device Room Air; SITE Not entered; VBG BASE EXCESS 0 mmol/L (-1.0-3.5); VBG Bicarbonate 24 mmol/L (22-26); VBG PO2 22 mmHg (25-40); VBG SO2 43 % (50-70); VBG TCO2 25 mmol/L (23-33); VBG pCO2 30.7 mmHg (41-51); VBG pH 7.49 (7.32-7.42)
[2024-12-31 19:42] LABS: Absolute Lymphocyte Count 2.74 X10^3/uL (0.83-4.51); Absolute Neutrophil Count 6.4 X10^3/uL (2.0-7.7); Basophil# 0.05 X10^3/uL; Basophil% 0.5 % (0-1); Eosinophil# 0.03 X10^3/uL; Eosinophils% 0.3 % (0-5); Hemoglobin 12.4 g/dL (12.0-15.0); Lymphocyte # 2.74 X10^3/ul (0.83-4.51); Lymphocyte % 27.7 % (19-41); Mean Corp Hgb Conc 32.6 g/dL (32-36); Mean Corpuscular Hgb 27.4 pg (27.0-32.0); Mean Corpuscular Volume 83.9 fL (81-99); Mean Platelet Vol. 9.5 fl (6.2-12.0); Monocyte# 0.63 X10^3/uL; Monocyte% 6.4 % (0-10); NRBC Flagged by Analyzer 0 % (0-5); Neutrophil # 6.38 X10^3/uL (2.7-7.7); Neutrophil % 64.4 % (47-70); Platelet Count 400 K/mm3 (150-450); RBC Distribution Width CV 14.3 % (11.6-14.6); RBC Distribution Width SD 43.4 fl (35.1-43.9); Red Blood Count 4.53 M/mm3 (4.2-5.4); White Blood Count 9.9 K/mm3 (4.4-11.0)
--- OUTSIDE RECORDS SUMMARY | 2024-12-31 19:42 | XMS RPT_ITS | CCD ---
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 Rickey Gifford Attending Provider Dr. Rikcey Gifford Admit Provider Dr. Rickey Gifford Other Provider Dr. Andres Matias Other Provider Dr. Marc Nick Attending Provider Dr. Marc Nick Other Provider Dr. Charles Green Other Provider Dr. Sophy Gibbons Primary Care Provider [phone] MD Drew Hinson Emergency Provider Maira, Dr. Brenda Ng Admit Provider Maira, Dr. Brenda Ng Attending Provider [phone] Maira, Dr. Brenda Ng Other Provider Be, Dr. Beasley Attending Provider Dr. Gale Lr Other Provider Dr. Andres Matias Other Provider Norma, Dr. Soto Other Provider Dr. Alex Christiansen Emergency Provider [phone] Carlitos, Dr. [place] Admit Provider Carlitos, Dr. [place] Attending Provider Carlitos, Dr. [place] Other Provider Dr. Lexus Villatoro Attending Provider Dr. Lexus Villatoro Other Provider Unavailable Primary Care Provider Unavailarpita Solorzano GRIZZLYMAN, [facility] Primary Care Provider [facility] Pro vider Dr. Willie Dhillon Emergency Provider Dr. Lexus Villatoro Admit Provider Dr. Lexus Villatoro Attending Provider Dr. Lexus Villatoro Other Provider ABDIRIZAK RAMIREZ Attending Unavailable [facility] Primary Care Unavailable [facility] Primary [facility] Emergency Department Provider RASHAD SPRING REPAIRER HELPER HAND-EXTRUSION DIE COORDINATOR, [facility] Physicia n DEWAYNE CHACON DO Attending Unavailable DEWAYNE CHACON DO Primary Care Unavailable DEWAYNE CHACON DO Admitting Unavailable GERALDINE ROLAND Admitting Unavailable GERALDINE ROLAND Attending Unavailable GERALDINE ROLAND Primary Care [facility] Primary Care Pro vider Dr. Willie Dhillon Emergency Provider Dr. Lexus Villatoro Admit Provider Dr. Lexus Villatoro Attending Provider Dr. Lexus Villatoro Other Provider ESSIE DOWNS DO Attending Unavailable GERALDINE SILVA DO Referring Unavailable RASHAD SPRING REPAIRER HELPER HAND-EXTRUSION DIE COORDINATOR, AMY Primary Care Unava fanny WEBB SPRING REPAIRER HELPER HAND-EXTRUSION DIE COORDINATOR, MARTI Matthews Attending Amadavai HELENA Glynn Admitting Unavailable Care Physician, No Primary Primary [...] Provider Dr. Rickey Gifford Other Provider Rashad GRIZZLYMAN, Amy Primary Care Provider Care Physician, No Primary Primary Care Provider Unavailable Dr. Javy Doss Emergency Provider Dr. Rickey Gifford Attending Provider Dr. Abdirizak Forrest Other Provider Dr. Rickey Gifford Admit Provider Dr. Rickey Gifford Other Provider Rashad GRIZZLYMAN, Amy Primary Care Provider KHDELFINO, KAMAL Admitting Unavailable KHDELFINO KAMAL Attending Unavailable RASHAD, AMY Primary Care Unavailable CAYETANO TAI Consulting Unavailable Unavailable Primary Care Provider Unavailabl e RASHAD, AMY Primary Care Unavailable IRAIS HANNA Referring Unavailable RASHAD, AMY Primary Care Unavailable [place], AMY Primary Care Unavailable Rashad GRIZZLYMAN-C, Amy Primary Care Provider Rashad GRIZZLYMAN-C, Amy Attending Provider Lon DPM, Dr. Rothman [...] Other Provider Clare Loo PA-C Attending Provider Yuliya BOYCE, Dr. Tony Peterson Attending Provider Be KIM, Dr. Beasley Referring Provider Clare Loo PA-C Attending Provider Rashad GRIZZLYMAN-C, Amy Referring Provider Nayana Grigsby Attending Provider Nayana Grigsby Referring Provider Kalee Peter Referring Provider Unavailable [facility], Amy Referring Unavailarpita e Nayana Peter Attending Unavailable [facility], Amy Primary Care Unavailabl e Maira, Brenda Berenice Admitting Unavailable Annalise Welch Consulting Unavailable Gale Lr Attending Unavailable [facility], Amy Primary Care Unavailabl e Maira, Brenda Berenice Consulting Unavailable Gale Lr Consulting Unavailable Annalise Welch Attending Unavailable Gale Lr Referring Unavailable Clare Steve Attending Unavailable Kordaphne Brendalori Ng Attending Unavailable [facility], [facility] Primary [facility] Emergency Department Unavailabl e Nayana Peter Attending Unavailable Kalee Peter Referring Unavailable [facility], [facility] Primary Care Unavailabl e [facility], Amy Attending Unavailabl e Abdirizak Forrest Referring Unavailable Abdirizak Forrest Attending Unavailable [facility], [facility] Primary [facility] Emergency Department Unavailabl e [facility], [facility] Primary Care Unavailabl e [facility], Amy Attending Unavailabl e Koram, Brenda Berenice Admitting Unavailable Robotchase, Annalise Consulting Unavailable Gale Lr Attending Unavailable [facility], [facility] Primary Care Unavailabl e Kordaphne, Brenda Berenice Consulting Unavailable [facility], [facility] Unavailabl e Nayana Peter Attending Unavailable Nayana Peter Referring Unavailable Abdirizak Forrest Referring Unavailable Abdirizak Forrest Attending Unavailable [facility], [facility] Primary [facility] Emergency Department Unavailabl e [facility], [facility] Primary Care Unavailabl e Venkatesh Torres Attending Unavailable Nayana Peter Attending Unavailable Nayana Peter Referring Unavailable [facility], [facility] Unavailabl e Dr. Poli Barfield DO Emergency Provider Odell BOYCE, Dr. Hernandez Admit Provider Odell BOYCE, Dr. Hernandez Attending Provider Odell BOYCE, Dr. Hernandez Other Provider Allergies Allergy Classification Reported Allergen(s) Allergy Type Date of Onset Reaction(s) Facility (2 sources) Cephalexin Drug Allergy 10-31-2013 Other: See Comments [facility] Work Phone: Medications Current Medications Medication Drug Class(es) Dates Sig (Normalized) Sig (Original) [id number] 200 actuat albuterol 0.09 mg/actuat metered dose [...] in structed every 4 hours as needed. azithromycin 250 mg oral tablet (3 sources) Macrolide Antimicrobial Start: 06-26-2024 azithromycin (ZITHROMAX Z-QUITA) 250 mg tablet Indications: Bronchopneumonia Take [...] 0 Refill(s), 02/18/23 5:07:00 PM EDT, Pharmacy: [id number], 169.9, cm, 02/11/23 1:49:00 EDT, Height, [...] Discontinued 500 mg PO EVERY 6 HOURS April 05, 2022 12:00am April 08, 2022 12:26pm Start: 04-05-2022 End: 04-08-2022 Start: 01-16-2022 End: 01-30-2022 take 1 capsule by mouth every six hours Cephalexin 500 mg capsule Discontinued 500 mg PO EVERY 6 HOURS January 16, 2022 12:00am January 30, 2022 1:44pm Start: 01-16-2022 End: 01-30-2022 Start: 10-24-2021 End: 11-16-2021 take 1 capsule by mouth every six hours Cephalexin 500 MG capsule Discontinued 500 mg PO EVERY 6 HOURS 40 October 24, 2021 12:00am November 16, 2021 9:58am Start: 10-24-2021 End: 11-16-2021 Comment on above: Take 1 capsule by mo [facility] three times daily for 7 days. ciprofloxacin 500 mg oral tablet (1 source) Quinolone Antimicrobial Start: 023 take 500 mg by mouth every twelve hours Ciprofloxacin Hcl Active 500 MG PO Q12H 10 August 15, 2022 12:00am clindamycin 300 mg oral capsule (1 source) Lincosamide Antibacterial Start: 023 12 hr dextromethorphan hydrobromide 30 mg / guaiFENesin 600 mg extended release oral tablet (1 source) Uncompetitive H-bmwycn-H-aspartate Receptor Antagonist, Sigma-1 Agonist Start: End: take 1 tablet by mouth every twelve hours as needed dextromethorphan-gua iFENesin (MUCINEX DM) 30-600 mg per tablet Take 1 tablet by mouth two times a day as needed for cough for up to 7 days. 14 tablet 07/03/2024 07/10/2024 Active docusate sodium 50 mg / sennosides, senior care 8.6 mg oral tablet (6 sources) Start: take 1 tablet by mouth once daily Sennosides-Docusate Sodium (Stimulant Laxative Plus) 8.6-50 mg tablet Active 1 - 2 TABLET PO DAILY April 06, 2022 12:00am Dulaglutide (16 sources) GLP-1 Receptor Agonist Start: Dulaglutide (Trulicity) 4.5 mg/0.5 mL pen injector [...] UNIT SC BEFORE MEALS AND AT BEDTIME 0 April 09, 2022 12:00am lactulose 667 mg/ml oral solution (1 source) Osmotic Laxative Start: 06-30-20 linaclotide 0.145 mg oral capsule (5 sources) Guanylate Cyclase-C Agonist Start: 12-14-19 take [...] on above: Take 1 tablet by balbir once daily. metoclopramide 10 mg oral tablet [...] Start: 02-01-2022 take 1 tablet by balbir every six hours Metoclopramide Hcl (Reglan) 10 [...] daily Pioglitazone Active 30 MG PO DAILY 30 January 30, 2022 12:00am polyethylene glycol 3350 461512 mg / potassium chloride 2970 mg / sodium bicarbonate 6740 mg / sodium chloride 5860 mg / sodium sulfate 26484 mg powder for oral solution (20 sources) Osmotic Laxative Start: 02-02-20 Peg 3350-Electrolytes (Gavilyte-G) 236-22.74-6.74 -5.86 gram recon [...] on above: Take 2 tablets by mo [facility] every 6 hours as needed. Vancomycin In 0.9 % Sodium Chl (5 sources) Start: 04-08-2022 Vancomycin In 0.9 % Sodium Chl Active 1.75 GM IV Q12H 43474 40 April 08, 2022 12:00am stop date 05/18/22 dx: MRSA osteo weekly bmp, cbc, vanc trough, and esr. Fax to [phone] routine picc care per protocol (2 sources) Start: 07-23-2023 Start: 07-16-2023 Completed/Discontinued Medications Medication Drug Class(es) Dates Sig (Normalized) Sig (Original) acetaminophen 325 mg oral tablet (20 sources) Start: 05-09-2023 End: 06-27-2023 Acetaminophen 325 mg Tablet Discontinued 650 mg PO EVERY 6 HOURS NEEDED as needed for Pain 1-10 Or Fever >100.7 May 09, 2023 12:00am June 27, 2023 6:51am Start: 05-09-2023 End: 06-27-2023 take 650 mg by mouth every six hours as needed Acetaminophen Discontinued 650 MG PO EVERY 6 HOURS NEEDED 0 May 09, 2023 12:00am June 27, 2023 6:51am Start: 03-04-2023 take 2 tablets by mo [facility] every six hours as needed acetaminophen (TYLENOL EXTRA STRENGTH) 500 mg tablet Take 2 tablets by mouth every 6 hours as needed for pain. 30 tablet 03/04/2023 Active Comment on above: Take 2 tablets by mo [facility] every 6 hours as needed for pain. [...] 05-04-2023 Start: 10-24-20[address] [facility] every six hours as needed Hydrocodone-Acetaminophen Active 1 TABLE T PO EVERY 6 HOURS NEEDED 10 October 24, 2021 8:40am acetaminophen 325 mg / [...] EVERY 6 HOURS as needed for pain 28 July 29, 2023 December 20, 2023 2:03pm Start: 07-23-2023 amoxicillin 875 mg / clavulanate 125 mg oral tablet (20 sources) Penicillin-class Antibacterial Start: 11-28-2024 End: 12-30-2024 Amoxicillin-Pot Clavulanate 875-125 mg Tablet Discontinued 1 {tbl} PO TWICE DAILY WITH MEALS 14 November 28, 2024 12:00am December 30, 2024 11:00am Start: 07-02-2023 Start: 05-09-2023 End: 06-25-2023 Amoxicillin-Pot [...] {tbl} PO TWICE A DAY 14 February 26, 2023 12:00am May 04, 2023 1:23pm Start: 02-26-2023 End: 05-04-2023 take 1 tablet by mouth twice daily Amoxicillin-Pot Clavulanate Discontinued 1 TABLET PO TWICE A DAY 14 February 26, 2023 12:00am May 04, 2023 1:23pm Start: 02-26-2023 End: 05-04-2023 Start: 06-29-2022 take 1 tablet by balbir th twice daily Amoxicillin-Pot Clavulanate Active 1 TABLET PO TWICE A DAY June 29, 2022 12:00am ascorbic acid 1000 mg oral tablet (19 sources) Vitamin C Start: 07-23-2023 End: 11-25-2024 take 1 g by mouth once daily Ascorbic Acid (Vitamin C) (Vitamin C) 1,000 mg tablet Discontinued 1 g PO DAILY 90 90 December 24, 2023 12:00am November 25, 2024 1:28pm aspirin 81 mg delayed [...] 81 mg PO TWICE A DAY 60 July 23, 2023 1:00am December 20, 2023 [...] Comment on above: Take 1 capsule by [facility] three times daily as needed for [...] suppository Discontinued 10 mg RC DAILY 12 3 January 15, 2023 12:00am June 27, 2023 6:51am Hold for diarrhea calcium carbonate 1250 mg / cholecalciferol 600 unt oral tablet (20 sources) Vitamin D Start: 07-23-2023 End: 11-25-2024 [...] mL IVPB Mini-Bag Plus (2 sources) Start: End: cefTRIAXone (Rocephin) 1,000 mg in sodium chloride 0.9 % 50 mL IVPB Mini-Bag Plus cyclobenzaprine hydrochloride 10 mg oral tablet (20 sources) Muscle Relaxant Start: End: take 1 tablet by mouth three times daily Cyclobenzaprine 10 mg tablet Discontinued 10 mg PO THREE TIMES A DAY 29 01December 24, 2023 12:00am November 25, 2024 1:28pm 2 ml dicyclomine hydrochloride 10 mg/ml injection (20 sources) Anticholinergic Start: 025 End: inject 20 mg by intramuscular injection four times daily Dicyclomine 10 mg/mL Solution Discontinued 20 mg IM 4 TIMES DAILY November 28, 2024 12:00am December 30, 2024 11:00am Start: 04-14-2023 End: 06-27-2023 take 1 tablet by mouth three times daily as needed for pain Dicyclomine 20 mg tablet Discontinued 20 mg PO THREE TIMES A DAY as needed for abdominal pain 30 October 29th, 2023 1:38pm June 27, 2023 6:52am Start: [...] 09, 2023 12:00am January 15, 2023 2:07pm 1 ml diphenhydrAMINE hydrochloride 50 mg/ml cartridge (2 sources) Histamine-1 Receptor Antagonist Start: 01-24-2023 End: 01-24-2023 diphenhydrAMINE (BENADryl) injection 25 mg docusate sodium 100 mg oral capsule (20 sources) Start: 07-23-2023 End: 11-25-2024 take 1 capsule by mouth once daily [...] 3:13pm Start: 10-29-2021 take 1 capsule by [facility] once daily Docusate Sodium (Colace) 100 mg capsule Active 100 MG PO DAILY October 29, 2021 12:01pm doxycycline hyclate 100 mg oral capsule (13 sources) Tetracycline-class Drug Start: 07-29-2023 End: 12-20-2023 take 1 capsule by mouth twice daily Doxycycline Hyclate 100 mg capsule Discontinued 100 mg PO TWICE A DAY 28 July 29, 2023 1:00am December 20, 2023 2:02pm Start: 10-08-2022 End: 10-15-2022 take 1 tablet by mouth twice daily doxycycline (VIBRA-TABS) 100 mg tablet Take 1 tablet by mouth twice daily for 7 days. 14 tablet 0 10/08/2022 10/15/2022 Active Start: 06-29-2022 take 100 mg by mouth twice daily Doxycycline Hyclate Active 100 MG PO TWICE A DAY 20 June 29, 2022 12:00am Comment on above: Take 1 tablet by balbir th twice daily for 7 days. Fiber (10 sources) Start: 07-16-2023 End: 11-25-2024 take 1 tablet by mouth once daily Fiber tablet,chewable Discontinued 1 {tbl} PO DAILY July 16, 2023 1:00am November 25, 2024 1:29pm Start: 07-16-2023 take 1 tablet by balbir th once daily Fiber tablet,chewable Active 1 {tbl} PO DAILY July 16, 2023 1:00am Start: 07-16-2023 take 1 tablet by balbir th once daily Fiber Active 1 TABLET PO [...] 0.125 MG PO THREE TIMES A DAY January 30, 2022 12:00am lansoprazole 30 mg delayed release oral capsule (20 sources) Proton Pump Inhibitor Start: 02-08-2023 End: 05-04-2023 take 1 capsule by mouth once daily Lansoprazole (Prevacid) 30 mg capsule,delayed release(DR/EC) Discontinued 30 mg PO DAILY February 08, 2023 12:00am May 04, 2023 6:57pm levoFLOXacin 750 mg oral tablet (18 sources) Quinolone Antimicrobial Start: 05-09-2023 End: 06-27-2023 [...] vomiting, oral intake improve Start: 01-16-2022 End: 05-04-2023 take 1 tablet by mouth twice daily Metformin 500 mg tablet Discontinued 500 mg PO TWICE A DAY January 16, 2022 12:00am June 24, 2022 [...] w/ meals. Take 1 tablet by balbir th twice daily with meals. MULTIVITAMIN ORAL (3 sources) End: 03-23-2022 MULTIVITAMIN ORAL Take by mouth. 03/23/2022 Discontinued End: 03-23-2022 MULTIVITAMIN ORAL Take by [facility]. 0 03/23/2022 Discontinued MULTIVITAMIN ORA L Take by mouth. 0 Active Comment on above: Take by mouth. omeprazole 40 mg delayed release oral capsule (20 sources) Proton Pump Inhibitor Start: 3 End: 3 Omeprazole 40 mg capsule,delayed release(DR/EC) Discontinued 40 mg PO TWICE A DAY January 19, 2023 12:00am May 09, 2023 1:35pm take two times a day for 8 weeks then once a day ondansetron 8 mg oral tablet (20 sources) Serotonin-3 Receptor Antagonist Start: 3 End: take 1 tablet by mouth every eight hours Ondansetron Hcl 8 mg tablet Discontinued 8 mg PO Q8H 15 May 09, 2023 12:00am June 27, 2023 [...] mouth e very 6 hours as needed. polyethylene glycol 3350 74070 mg powder for oral solution (20 sources) Osmotic Laxative Start: 11-28-2024 End: 12-30-2024 Polyethylene Glycol 3350 (Clearlax) 17 gram/dose powder Discontinued 17 g PO DAILY November 28, 2024 12:00am December 30, 2024 11:01am Start: 04-06-2022 End: 05-04-2023 Polyethylene Glycol 3350 (Mi ralax) 17 gram/dose powder Discontinued 17 g PO DAILY as needed for constipation February 26, 2023 3:22am May 04, 2023 6:58pm Start: 06-06-2021 End: 02-18-2023 polyethylene glycol 3350 (MN RALAX, GLYCOLAX) 17 gram/dose powder Take 17 [...] take as directed. Patient not started yet. promethazine hydrochloride 25 mg oral tablet (20 [...] Active Comment on above: Take by mouth. 72 hr scopolamine 0.0139 mg/hr transdermal system (20 sources) Anticholinergic Start: 11-28-2024 End: 12-30-2024 Scopolamine Base 1 mg over 3 days Patch 3 Day Discontinued 1 NMA TD Every 3 Days November 28, 2024 12:00am December 30, 2024 11:01am Start: 01-15-2023 End: 05-04-2023 Scopolamine Base 1 [...] 01, 2022 12:03am Start: 01-30-2022 End: 03-01-2022 50 ml sodium chloride 9 mg/ml injection (2 sources) Start: 01-24-2023 End: 01-24-2023 sodium chloride 0.9 % bolus 1,000 mL sulfamethoxazole 800 mg / trimethoprim 160 mg oral tablet (20 sources) Dihydrofolate Reductase Inhibitor Antibacterial, Sulfonamide Antimicrobial Start: 02-24-2023 End: 05-04-2023 Sulfamethoxazole-Tri methoprim (Bactrim Ds) 800-160 mg tablet Discontinued 1 [...] balbir th twice daily for 5 days. traMADol hydrochloride 50 mg oral tablet (6 sources) Opioid Agonist Start: 5 End: take 1 tablet by mouth every eight hours as needed for pain Tramadol 50 mg tablet Discontinued 50 mg PO Q8H as needed for pain November 28, 2024 12:00am December 30, 2024 11:01am traZODone hydrochloride 300 mg oral tablet (20 sources) Serotonin Reuptake Inhibitor Start: End: Trazodone 300 mg tablet Discontinued 200 mg PO AT BEDTIME as needed for insomnia July 16, 2023 1:00am December 30, 2024 11:01am Start: 07-16-2023 take 200 mg by mouth at bedtim e Trazodone Active 200 MG PO AT BEDTIME July 16, 2023 1:00am Start: 01-12-2023 End: 05-04-2023 take 1 tablet by mouth at bedtime Trazodone 300 mg tablet Discontinued 300 mg PO AT BEDTIME January 12, 2023 12:00am May 04, 2023 6:58pm Comment on above: Take 300 mg by mouth daily at bedtime. Problems Active Problems Problem Classification Problem Date Documented Da te Episodic/Chronic Abdominal pain (20 sources) Abdominal pain; Translations: [Unspecified abdominal pain] Onset: 02-11-2023 Episodic Acute and unspecified renal failure (4 sources) Acute renal failure syndrome; Translations: [Acute kidney failure, unspecified] 12-30-2024 Episodic Administrative/social admission (20 sources) Patient encounter [...] unspecified] 08-19-2021 Episodic Intestinal obstruction without hernia (15 sources) Fecal impaction; Translations: [Fecal impaction] Onset: 12-14-2024 11-25-2024 Episodic Malaise and fatigue (1 source) Asthenia; Translations: [Weakness] Onset: 02-11-2023 Episodic Nausea and vomiting (20 sources) Nausea and vomiting; Translations: [Nausea with vomiting, unspecified] Onset: 01-24-2023 Episodic Noninfectious gastroenteritis (20 sources) Colitis; Translations: [Noninfective gastroenteritis and colitis, [...] Onset: 10-25-2024 Chronic Other connective tissue disease (18 sources) Contracture of Achilles tendon; Translations: [Short Achilles tendon (acquired), right ankle] 05-08-2023 Episodic Other connective tissue disease (8 sources) Short Achilles tendon (acquired), right ankle; Translations: [Contracture of tendon (sheath)] 05-09-2023 Episodic Other disorders of stomach and duodenum (2 sources) Cyclical vomiting syndrome; Translations: [Cyclical vomiting syndrome unrelated to migraine] 12-30-2024 Episodic Other eye disorders (1 source) Pain of right eye; Translations: [Ocular pain, right eye] 07-01-2023 Episodic Other eye disorders (12 sources) Complete obstruction of lacrimal canaliculus ; Translations: [Blocked tear duct] 07-02-2023 Episodic Other gastrointestinal disorders (20 sources) Constipation; Translations: [Constipation, unspecified] Onset: 03-02-2023 11-06-2021 Episodic Other gastrointestinal disorders (2 sources) Constipation, unspecified; Translations: [Constipation, unspecified] Onset: 02-11-2023 Episodic Other injuries and conditions due to external causes (9 sources) Unspecified injury of right Achilles tendon, initial encounter; Translations: [Injury of right Achilles tendon] 12-24-2023 Episodic Other liver diseases (4 sources) Elevated liver enzymes level; Translations: [Abnormal levels of other serum enzymes] 12-13-2024 Episodic Other lower respiratory disease (2 sources) Cough; Translations: [Acute cough] Episodic Other lower respiratory disease (1 source) Dyspnea; Translations: [Shortness of breath] 04-15-2023 Episodic Other lower respiratory disease (19 sources) H/O: asthma; Translations: [Personal history of other diseases of the respiratory system] 04-23-2023 Episodic Other lower respiratory disease (3 sources) Cough; Translations: [Acute cough] 03-23-2022 Episodic Other nervous system disorders (1 source) Other chronic pain; Translations: [Chronic abdominal pain] Onset: 03-01-2023 Chronic Other nervous system disorders (11 sources) Acute postoperative pain; Translations: [Other acute [...] Episodic Other nutritional; endocrine; and metabolic disorders (20 sources) H/O: diabetes mellitus; Translations: [Personal history [...] cough; Translations: [Acute cough] Onset: 07-03-2024 Unclassified (6 sources) Please call today or tomorrow to set up appointment. financial secretary called to schedule appointment. I had [...] Test Name Value Interpretation Reference Range Facility Anion gap in Serum or Plasma Ordered By: David Bain on 12-31-2024 Anion gap [Moles/Vol] 12 mmol/L 5-15 [facility] BUN/creatinine ratioOrdered By: David Bain on 12-31-2024 Urea nitrogen/Creatinine [Mass ratio] 10.2 mg/mg 10- [facility] Beta-hydroxybutyrateOrdered By: Dewayne Duff on 12-31-2024 Beta hydroxybutyrate [Mass/Vol] 0.1 mmol/L 0.0-0.3 [facility] Carbon dioxide, total [Moles /volume] in Central venous bloodOrdered By: David Bain on 12-31-2024 CO2 [Moles/Vol] 21.3 mmol/L 21.0-32.0 [facility] Chloride assayOrdered By: Dwaine Bain on 12-31-2024 Chloride [Moles/Vol] 106 mmol/L 98-108 [facility] Glomerular filtration rate ( GFR) estimation/1.73 sq m using serum, plasma, or whole bOrdered By: David Bain on 12-31-2024 GFR/1.73 sq M.predicted among non-blacks MDRD (S/P/Bld) [Vol rate/Area] 97 mL/min/{1.73_m2} >60 [facility] Comment on above: mL/min/1.73m2 CKD-EP I Creatinine Equation (2020) [facility] de[facility]dered By: David Bain on 12-31-2024 Glucose [Mass/Vol] 147 mg/dL High 74-106 [facility] Comment on above: MANAGEMENT OF PATIEN T CARE PER NURSING PROTOCOL Hemoglobin A1c percentageOrd ered By: David Bain on 12-31-2024 HbA1c (Bld) [Mass fraction] 8.5 % High <5.7 [facility] Comment on above: Normal < 5.7 % Predi abetic 5.7 - 6.4 % Diabetic >or= 6.5 % Please note range changes. Potassium measurement (mass/ volume)Ordered By: David Bain on 12-31-2024 Potassium (Unsp spec) [Mass/Vol] 3.6 mmol/L 3.3-5.1 [facility] Serum creatinine measurement (mass/volume)Ordered By: David Bain on 12-31-2024 Creatinine [Mass/Vol] 0.82 mg/dL 0.70-1.20 [facility] Serum glucose measurement (m ass/volume)Ordered By: David Bain on 12-31-2024 Glucose [Mass/Vol] 129 mg/dL High 70-99 [facility] Serum or plasma calcium hussein urement (mass/volume)Ordered By: David Bain on 12-31-2024 Calcium [Mass/Vol] 8.2 mg/dL 7.6-11.0 [facility] Serum or plasma urea nitroge n measurement (mass/volume)Ordered By: David Bain on 12-31-2024 Urea nitrogen [Mass/Vol] 8 mg/dL 4-19 [facility] Sodium levelOrdered By: Darnell Bain on 12-31-2024 Sodium [Moles/Vol] 138 mmol/L 133-145 [facility] Absolute lymphocyte countOrd ered By: Poli Barfield on 12-30-2024 Lymphocytes Auto (Unsp spec) [#/Vol] 3.14 10*3/uL 0.83-4.51 [facility] Absolute neutrophil countOrd ered By: Poli Barfield on 12-30-2024 Neutrophils (Bld) [#/Vol] 9.4 10*3/uL High 2.0-7.7 [facility] Amphetamine detection with 1 000 ng/mL as cutoffOrdered By: Poli Barfield on 12-30-2024 Amphetamines Screen method >1000 ng/mL Ql (U) Negative < 200 ng/mL [facility] Anion gap in Serum or Plasma Ordered By: Poli Barfield on 12-30-2024 Anion gap [Moles/Vol] 20 mmol/L High 5-15 [facility] Automated lymphocyte count a s percentage of total leukocytesOrdered By: Poli Barfield on 12-30-2024 Lymphocytes/100 WBC Auto (Unsp spec) 23.6 % 19-41 [facility] BUN/creatinine ratioOrdered By: Poli Barfield on 12-30-2024 Urea nitrogen/Creatinine [Mass ratio] 11.1 mg/mg 10-20 [facility] Basophil percentageOrdered B y: Poli Barfield on 12-30-2024 Basophils/100 WBC (Bld) 0.3 % 0-1 [facility] Bilirubin Test strip Ql (U)O rdered By: Poli Barfield on 12-30-2024 Bilirubin Ql (U) 3 mg/dL High Negative [facility] Comment on above: COLOR OF URINE MAY A FFECT DIPSTICK RESULTS. Bilirubin, totalOrdered By: Poli Barfield on 12-30-2024 Bilirubin [Mass/Vol] 0.65 mg/dL 0.00-1.30 [facility] CO2 (BldV) [Moles/Vol]Ordere d By: David Bain on 12-30-2024 CO2 [Moles/Vol] 30 mmol/L -33 [facility] Carbon dioxide, total [Moles /volume] in Central venous bloodOrdered By: Poli Barfield on 12-30-2024 CO2 [Moles/Vol] 19.2 mmol/L Low 21.0-32.0 [facility] Chloride assayOrdered By: Demetrio Barfield on 12-30-2024 Chloride [Moles/Vol] 97 mmol/L Low 98-108 [facility] Eosinophil percentageOrdered By: Poli Barfield on 12-30-2024 Eosinophils/100 WBC (Bld) 0.0 % 0-5 [facility] Erythrocyte distribution wid th ratioOrdered By: Poli Barfield on 12-30-2024 Erythrocyte distribution width (RBC) [Ratio] 14.3 % 11.6-14.6 [facility] Erythrocyte distribution wid th standard deviationOrdered By: Poli Barfield on 12-30-2024 Erythrocyte distribution width (RBC) [Ratio] 41.4 fl 35.1-43.9 [facility] Glomerular filtration rate ( GFR) estimation/1.73 sq m using serum, plasma, or whole bOrdered By: Poli Barfield on 12-30-2024 GFR/1.73 sq M.predicted among non-blacks MDRD (S/P/Bld) [Vol rate/Area] 60 mL/min/{1.73_m2} >60 [facility] Comment on above: mL/min/1.73m2 CKD-EP I Creatinine Equation (2020) Hematocrit Auto (Bld) [Volum e fraction]Ordered By: Poli Barfield on 12-30-2024 Hematocrit (Bld) [Volume fraction] 39.2 % 37-47 [facility] Hemoglobin measurementOrdere d By: Poli Barfield on 12-30-2024 Hemoglobin (Bld) [Mass/Vol] 13.2 g/dL 12.0-15.0 [facility] Immature granulocytes/100 WB C Auto (Bld)Ordered By: Poli Barfield on 12-30-2024 Immature granulocytes/100 WBC (Bld) 0.600 % 0.0-0.9 [facility] Comment on above: IG% - Immature Granu locytes (promyelocytes, myelocytes and metamyelocytes) > 1% indicates that a LEFT SHIFT is Present. Ketones Test strip Ql (U)Ord ered By: Poli Barfield on 12-30-2024 Ketones Ql (U) 50 mg/dl High Negative [facility] Laboratory - Chemistry and C hemistry - challengeOrdered By: Poli Barfield on 12-30-2024 AST [Catalytic activity/Vol] 16 U/L <32 [facility] Lipase measurementOrdered By : Poli Barfeild on 12-30-2024 Lipase [Catalytic activity/Vol] 25 U/L 13-75 [facility] Comment on above: Please note:LIPASE r evised reference range effective 22. New Lipase methodology. Expected to produce lower values than the previous assay method. NEW Reference Range: 13 - 75 U/L MCV (mean corpuscular volume ) determinationOrdered By: Poli Barfield on 12-30-2024 MCV (RBC) [Entitic vol] 81.8 fL 81-99 [facility] Magnesium measurement (mass/ volume)Ordered By: David Bain on 12-30-2024 Magnesium (Unsp spec) [Mass/Vol] 1.8 mg/dL 1.5-2.2 [facility] Mean corpuscular hemoglobin (MCH) determinationOrdered By: Poli Barfield on 12-30-2024 MCH (RBC) [Entitic mass] 27.6 pg 27.0-32.0 [facility] Mean corpuscular hemoglobin concentration (MCHC) determinationOrdered By: Poli Barfield on 12-30-2024 MCHC (RBC) [Mass/Vol] 33.7 g/dL 32-36 [facility] Mean platelet volume determi nationOrdered By: Poli Barfield on 12-30-2024 Platelet mean volume (Bld) [Entitic vol] 9.7 fL 6.2-12.0 [facility] Microscopic analysis of urin e for red blood cells (RBC)Ordered By: Poli Barfield on 12-30-2024 Microscopic analysis of urine for red blood cells (RBC) 0 SEEN /hpf 0-5 [facility] Monocyte percentageOrdered B y: Poli Barfield on 12-30-2024 Monocytes/100 WBC (Bld) 4.8 % 0-10 [facility] Mucus LM Ql (Urine sed)Order ed By: Poli Barfield on 12-30-2024 Mucus Ql (Urine sed) 0 SEEN /hpf [facility] Neutrophil percentageOrdered By: Poli Barfield on 12-30-2024 Neutrophils/100 WBC (Bld) 70.7 % High 47-70 [facility] Nitrite Test strip Ql (U)Ord ered By: Poli Barfield on 12-30-2024 Nitrite Ql (U) Negative Negative [facility] No Panel InformationOrdered By: David Bain on 12-30-2024 Blood Gas Sample Site Not entered [facility] Blood Gas Specimen Type ESTRELLA [facility] Oxygen Delivery Device Room Air [facility] No Panel InformationOrdered By: Poli Barfield on 12-30-2024 Urine Buprenorphine Qualitative Negative < 200 ng/mL [facility] Urine Oxycodone Screen Negative < 100 ng/mL [facility] Nucleated red blood cell per centageOrdered By: Poli Barfield on 12-30-2024 Nucleated RBC/100 WBC (Bld) [Ratio] 0 % 0-5 [facility] Platelet countOrdered By: Demetrio Barfield on 12-30-2024 Platelets (Bld) [#/Vol] 430 10*3/uL 150-450 [facility] Potassium measurement (mass/ volume)Ordered By: Poli Barfield on 12-30-2024 Potassium (Unsp spec) [Mass/Vol] 3.4 mmol/L 3.3-5.1 [facility] Protein Test strip Ql (U)Ord ered By: Poli Barfield on 12-30-2024 Protein Ql (U) 30 mg/dl High Negative [facility] Quantitative urine opiates m easurementOrdered By: Poli Barfield on 12-30-2024 Opiates Ql (U) Negative < 300 ng/mL [facility] RBC Auto (Bld) [#/Vol]Ordere d By: Poli Barfield on 12-30-2024 RBC (Bld) [#/Vol] 4.79 10*6/uL 4.2-5.4 [facility] Screening urine fentanyl kedar surementOrdered By: Poli Barfield on 12-30-2024 fentaNYL Screen Ql (U) Negative [facility] Serum beta-hCG test, qualita tiveOrdered By: Poli Barfield on 12-30-2024 Beta HCG ( test) Ql Negative [facility] Serum creatinine measurement (mass/volume)Ordered By: Poli Barfield on 12-30-2024 Creatinine [Mass/Vol] 1.22 mg/dL High 0.70-1.20 [facility] Serum globulin measurementOr dered By: Poli Barfield on 12-30-2024 Globulin (S) [Mass/Vol] 4.4 g/dL High 2.2-4.2 [facility] Serum glucose measurement (m ass/volume)Ordered By: Poli Barfield on 12-30-2024 Glucose [Mass/Vol] 359 mg/dL High 70-99 [facility] Serum or plasma alanine jordan otransferase (ALT) measurementOrdered By: Poli Barfield on 12-30-2024 ALT [Catalytic activity/Vol] 12 U/L <35 [facility] Serum or plasma albumin hussein urement (mass/volume)Ordered By: Poli Barfield on 12-30-2024 Albumin [Mass/Vol] 4.2 g/dL 3.5-5.0 [facility] Serum or plasma albumin/glob ulin mass ratioOrdered By: Poli Barfield on 12-30-2024 Albumin/Globulin [Mass ratio] 0.9 {ratio} 0.9-2.4 [facility] Serum or plasma alkaline bradley sphatase measurementOrdered By: Poli Barfield on 12-30-2024 ALP [Catalytic activity/Vol] 91 U/L 35-104 [facility] Serum or plasma calcium hussein urement (mass/volume)Ordered By: Poli Barfield on 12-30-2024 Calcium [Mass/Vol] 9.7 mg/dL 7.6-11.0 [facility] Serum or plasma urea nitroge n measurement (mass/volume)Ordered By: Poli Barfield on 12-30-2024 Urea nitrogen [Mass/Vol] 14 mg/dL 4-19 [facility] Sodium levelOrdered By: Poli Barfield on 12-30-2024 Sodium [Moles/Vol] 137 mmol/L 133-145 [facility] Squamous epithelial cells de tection in urine sediment by light microscopyOrdered By: Poli Barfield on 12-30-2024 Epithelial cells.squamous LM Ql (Urine sed) 10-25 SEEN /hpf 5-10 [facility] Total proteinOrdered By: Devon Barfield on 12-30-2024 Protein [Mass/Vol] 8.6 g/dL High 5.9-8.4 [facility] Urine benzodiazepine levelOr dered By: Poli Barfield on 12-30-2024 Benzodiazepines Ql (U) Negative < 200 ng/mL [facility] Urine clarityOrdered By: Devon Barfield on 12-30-2024 Clarity (U) Sl. Cloudy Clear [facility] Urine cocaine levelOrdered B y: Poli Barfield on 12-30-2024 Cocaine Ql (U) Negative < 300 ng/mL [facility] Urine color determinationOrd ered By: Poli Barfield on 12-30-2024 Color (U) Yellow Yellow [facility] Urine [id number]-[id number] abinol (THC) measurementOrdered By: Poli Barfield on 12-30-2024 Cannabinoids Screen Ql (U) Positive < 50 ng/mL [facility] Comment on above: If confirmation test ing is needed, a separate order will be required to send out testing to the reference laboratory. Urine glucose detectionOrder ed By: Poli Barfield on 12-30-2024 Glucose Ql (U) 1000 mg/dl High Normal [facility] Urine leukocyte esterase det ection by dipstickOrdered By: Poli Barfield on 12-30-2024 Leukocyte esterase Test strip Ql (U) 500 /ul High Negative [facility] Urine pHOrdered By: Poli Barfield on 12-30-2024 pH (U) 5.0 [pH] 5.0 - 8.0 [facility] Urine phencyclidine (PCP) de tectionOrdered By: Poli Barfield on 12-30-2024 Phencyclidine Ql (U) Negative < 25 ng/mL [facility] Urine sediment bacteria coun t by microscopy (number/high power field)Ordered By: Poli Barfield on 12-30-2024 Bacteria LM.HPF (Urine sed) [#/Area] 0 /[HPF] None Seen [facility] Urine specific gravity measu rementOrdered By: Poli Barfield on 12-30-2024 Specific gravity (U) [Rel density] 1.025 1.002-1.030 [facility] Urine urobilinogen measureme ntOrdered By: Poli Barfield on 12-30-2024 Urobilinogen Ql (U) 1 mg/dl High Normal [facility] Venous blood base excess kedar surementOrdered By: David Bain on 12-30-2024 Base excess Calc (BldV) [Moles/Vol] 5 mmol/L High -1.0-3.5 [facility] Venous blood bicarbonate kedar surementOrdered By: David Bain on 12-30-2024 HCO3 (Bld) [Moles/Vol] 29 mmol/L High 22-26 [facility] Venous blood oxygen saturati on measurementOrdered By: David Bain on 12-30-2024 Oxygen saturation in Blood 68 % 50-70 [facility] Venous blood pH measurementO rdered By: David Bain on 12-30-2024 pH (BldV) 7.45 [pH] High 7.32-7.42 [facility] Venous blood partial pressur e of carbon dioxide measurementOrdered By: David Bain on 12-30-2024 CO2 (BldV) [Partial pressure] 42.2 mm[Hg] 41-51 [facility] Venous blood partial pressur e of oxygen measurementOrdered By: David Bain on 12-30-2024 Oxygen (BldV) [Partial pressure] 34 mm[Hg] 25-40 [facility] White blood cell (WBC) count Ordered By: Poli Barfield on 12-30-2024 WBC (Bld) [#/Vol] 13.3 10*3/uL High 4.4-11.0 [facility] White blood cell countOrdere d By: Poli Barfield on 12-30-2024 White blood cell count 5-10 SEEN /hpf 0-5 [facility] Abdomen Limitedon 12-25-2024 Abdomen Limited [facility] [address] [place], [place] [address] Abdomen Limited MR#: [id number] Acct: [id number] Name: GHISLAINE GIVENS Rep #: [id number] : 1990 F 34 From: Amy merrill MD PCP: BROOKLYN Warren, GRIZZLYMAN-C Status: REG CLI Study: Abdomen Limited Date of Exam: 12/25/24 Exam# [id number] Ordering Dr: Nayana Peter PROCEDURE: ABDOMEN LIMITED [...] of cholelithiasis or acute cholecystitis. Reading Location: [place] [address] CC: [facility] GRIZZLYMANKaykay Solorzano; MIGUEL A [employer] Specialist: Signed Normal [facility] Absolute lymphocyte countOrd ered By: Nayana Peter on 12-13-2024 Lymphocytes Auto (Unsp spec) [#/Vol] 3.52 10*3/uL 0.83-4.51 [facility] Absolute neutrophil countOrd ered By: Nayana Peter on 12-13-2024 Neutrophils (Bld) [#/Vol] 5.0 10*3/uL 2.0-7.7 [facility] Anion gap in Serum or Plasma Ordered By: Nayana Peter on 12-13-2024 Anion gap [Moles/Vol] 13 mmol/L 5-15 [facility] Automated lymphocyte count a s percentage of total leukocytesOrdered By: Nayana Peter on 12-13-2024 Lymphocytes/100 WBC Auto (Unsp spec) 36.7 % 19-41 [facility] BUN/creatinine ratioOrdered By: Nayana Peter on 12-13-2024 Urea nitrogen/Creatinine [Mass ratio] 6.2 mg/mg Low 10-20 [facility] Basophil percentageOrdered B y: Nayana Peter on 12-13-2024 Basophils/100 WBC (Bld) 0.8 % 0-1 [facility] Bilirubin, totalOrdered By: Nayana Peter on 12-13-2024 Bilirubin [Mass/Vol] 0.30 mg/dL 0.00-1.30 [facility] CBC W/Diff, Automatedon Absolute Lymph 3.52 X10 3/uL Normal 0.83-4.51 [facility] Comment on above: Performed By: #### L 700.6800, L100.0100, L500.2500 #### [facility] [address] [place], [address] Absolute Neut 5.0 X10 3/uL Normal 2.0-7.7 [facility] Comment on above: Performed By: #### L 700.6800, L100.0100, L500.2500 #### [facility] [address] [place], [address] Basophils/100 WBC (Bld) 0.8 % Normal 0-1 [facility] Comment on above: Performed By: #### L 700.6800, L100.0100, L500.2500 #### [facility] [address] [place], [address] Eosinophils/100 WBC (Bld) 2.0 % Normal 0-5 [facility] Comment on above: Performed By: #### L 700.6800, L100.0100, L500.2500 #### [facility] [address] [place], [address] Erythrocyte distribution width (RBC) [Ratio] 14.0 % Normal 11.6-14.6 [facility] Comment on above: Performed By: #### L 700.6800, L100.0100, L500.2500 #### [facility] [address] [place], [address] Hematocrit (Bld) [Volume fraction] 40.5 % Normal 37-47 [facility] Comment on above: Performed By: #### L 700.6800, L100.0100, L500.2500 #### [facility] [address] [place], [address] Hemoglobin (Bld) [Mass/Vol] 13.2 g/dL Normal 12.0-15.0 [facility] Comment on above: Performed By: #### L 700.6800, L100.0100, L500.2500 #### [facility] [address] [place], [address] IG% 0.800 Normal 0.0-0.9 [facility] Comment on above: Result Comment: IG% - Immature Granulocytes (promyelocytes, myelocytes and metamyelocytes) > 1% indicates that a LEFT SHIFT is Present. Performed By: #### L 700.6800, L100.0100, L500.2500 #### [facility] [address] [place], [address] Lymphocytes/100 WBC (Bld) 36.7 % Normal 19-41 [facility] Comment on above: Performed By: #### L 700.6800, L100.0100, L500.2500 #### [facility] [address] [place], [address] MCH (RBC) [Entitic mass] 27.1 pg Normal 27.0-32.0 [facility] Comment on above: Performed By: #### L 700.6800, L100.0100, L500.2500 #### [facility] [address] [place], [address] MCHC (RBC) [Mass/Vol] 32.6 g/dL Normal 32-36 [facility] Comment on above: Performed By: #### L 700.6800, L100.0100, L500.2500 #### [facility] [address] [place], [address] MCV (RBC) [Entitic vol] 83.2 fL Normal 81-99 [facility] Comment on above: Performed By: #### L 700.6800, L100.0100, L500.2500 #### [facility] [address] [place], [address] Monocytes/100 WBC (Bld) 7.5 % Normal 0-10 [facility] Comment on above: Performed By: #### L 700.6800, L100.0100, L500.2500 #### [facility] [address] [place], [address] Neutrophils/100 WBC (Bld) 52.2 % Normal 47-70 [facility] Comment on above: Performed By: #### L 700.6800, L100.0100, L500.2500 #### [facility] [address] [place], [address] Nucleated RBC (Bld) [#/Vol] 0 10*3/uL Normal 0-5 [facility] Comment on above: Performed By: #### L 700.6800, L100.0100, L500.2500 #### [facility] [address] [place], [address] Platelet mean volume (Bld) [Entitic vol] 10.1 fL Normal 6.2-12.0 [facility] Comment on above: Performed By: #### L 700.6800, L100.0100, L500.2500 #### [facility] [address] [place], [address] Platelets (Bld) [#/Vol] 367 10*3/uL Normal 150-450 [facility] Comment on above: Performed By: #### L 700.6800, L100.0100, L500.2500 #### [facility] [address] [place], [address] RBC (Bld) [#/Vol] 4.87 10*6/uL Normal 4.2-5.4 [facility] Comment on above: Performed By: #### L 700.6800, L100.0100, L500.2500 #### [facility] [address] [place], [address] RDW SD 42.3 fl Normal 35.1-43.9 [facility] Comment on above: Performed By: #### L 700.6800, L100.0100, L500.2500 #### [facility] [address] [place], [address] WBC (Bld) [#/Vol] 9.6 10*3/uL Normal 4.4-11.0 [facility] Comment on above: Performed By: #### L 700.6800, L100.0100, L500.2500 #### [facility] [address] [place], [address] Carbon dioxide, total [Moles /volume] in Central venous bloodOrdered By: Nayana Peter on 12-13-2024 CO2 [Moles/Vol] 26.2 mmol/L 21.0-32.0 [facility] Chloride assayOrdered By: Tiffanie Peter on 12-13-2024 Chloride [Moles/Vol] 99 mmol/L 98-108 [facility] Comprehensive Metabolic Prof ilon 12-13-2024 Albumin [Mass/Vol] 3.8 g/dL Normal 3.5-5.0 [facility] Comment on above: Performed By: #### L 700.6800, L100.0100, L500.2500 #### [facility] [address] [place], [address] Albumin/Globulin [Mass ratio] 1.2 {ratio} Normal 0.9-2.4 [facility] Comment on above: Performed By: #### L 700.6800, L100.0100, L500.2500 #### [facility] [address] [place], [address] ALK PHOS 100 U/L Normal 35-104 [facility] Comment on above: Performed By: #### L 700.6800, L100.0100, L500.2500 #### [facility] [address] [place], [address] ALT [Catalytic activity/Vol] 36 U/L High <=34 [facility] Comment on above: Performed By: #### L 700.6800, L100.0100, L500.2500 #### [facility] [address] [place], [address] AST [Catalytic activity/Vol] 37 U/L High <=31 [facility] Comment on above: Performed By: #### L 700.6800, L100.0100, L500.2500 #### [facility] [address] [place], [address] Bilirubin [Mass/Vol] 0.30 mg/dL Normal 0.00-1.30 [facility] Comment on above: Performed By: #### L 700.6800, L100.0100, L500.2500 #### [facility] [address] [place], [address] BUN/CRE 6.2 RATIO Low 10-20 [facility] Comment on above: Performed By: #### L 700.6800, L100.0100, L500.2500 #### [facility] [address] [place], [address] Calcium [Mass/Vol] 8.8 mg/dL Normal 7.6-11.0 [facility] Comment on above: Performed By: #### L 700.6800, L100.0100, L500.2500 #### [facility] [address] [place], [address] Chloride [Moles/Vol] 99 mmol/L Normal 98-108 [facility] Comment on above: Performed By: #### L 700.6800, L100.0100, L500.2500 #### [facility] [address] [place], [address] CO2 [Moles/Vol] 26.2 mmol/L Normal 21.0-32.0 [facility] Comment on above: Performed By: #### L 700.6800, L100.0100, L500.2500 #### [facility] [address] [place], [address] Creatinine [Mass/Vol] 0.86 mg/dL Normal 0.70-1.20 [facility] Comment on above: Performed By: #### L 700.6800, L100.0100, L500.2500 #### [facility] [address] [place], [address] GAP 13 Normal 5-15 [facility] Comment on above: Performed By: #### L 700.6800, L100.0100, L500.2500 #### [facility] [address] [place], [address] GFR/1.73 sq M.predicted among non-blacks MDRD (S/P/Bld) [Vol rate/Area] 92 mL/min/{1.73_m2} Normal >60 [facility] Comment on above: Result Comment: mL/m in/1.73m2 CKD-EPI Creatinine Equation (2020) Performed By: #### L 700.6800, L100.0100, L500.2500 #### [facility] [address] [place], [address] Globulin (S) [Mass/Vol] 3.3 g/dL Normal 2.2-4.2 [facility] Comment on above: Performed By: #### L 700.6800, L100.0100, L500.2500 #### [facility] [address] [place], [address] Glucose [Mass/Vol] 251 mg/dL High 70-99 [facility] Comment on above: Performed By: #### L 700.6800, L100.0100, L500.2500 #### [facility] [address] [place], [address] Potassium [Moles/Vol] 4.0 mmol/L Normal 3.3-5.1 [facility] Comment on above: Performed By: #### L 700.6800, L100.0100, L500.2500 #### [facility] [address] [place], [address] Sodium [Moles/Vol] 139 mmol/L Normal 133-145 [facility] Comment on above: Performed By: #### L 700.6800, L100.0100, L500.2500 #### [facility] [address] [place], [address] T PROT 7.2 g/dL Normal 5.9-8.4 [facility] Comment on above: Performed By: #### L 700.6800, L100.0100, L500.2500 #### [facility] [address] [place], [address] Urea nitrogen [Mass/Vol] 5 mg/dL Normal 4-19 [facility] Comment on above: Performed By: #### L 700.6800, L100.0100, L500.2500 #### [facility] [address] [place], [address] Eosinophil percentageOrdered By: Nayana Peter on 12-13-2024 Eosinophils/100 WBC (Bld) 2.0 % 0-5 [facility] Erythrocyte distribution wid th ratioOrdered By: Nayana Peter on 12-13-2024 Erythrocyte distribution width (RBC) [Ratio] 14.0 % 11.6-14.6 [facility] Erythrocyte distribution wid th standard deviationOrdered By: Nayana Peter on 12-13-2024 Erythrocyte distribution width (RBC) [Ratio] 42.3 fl 35.1-43.9 [facility] Gastroenterology Visit Repor ton 12-13-2024 Gastroenterology Visit Report [facility] [address] [place] [address] OFFICE VISIT Date of Service: 12/13/24 MR#: [id number] Acct: [id number] Name: GHISLAINE GIVENS Rep #: [id number] : 1990 Provider: MIGUEL A [place] Age/Sex: 34/F Location: [facility] Status: Signed Intake Vital Signs 11/27/24 13:47 [...] 2022 and no prior hx of colonoscopy. [facility] Medical History (Updated 12/06/24 @ 00:00 by Love Duarte) Diabetes GERD (gastroesophageal reflux disease) Wears glasses [...] to the office today for establishment with [facility] ED 11.25.24 with constipation and abd pain for a [...] female pt here today for f/u after [facility] admission. Pt was hospitalize (more content not included)... Normal [facility] Glomerular filtration rate ( GFR) estimation/1.73 sq m using serum, plasma, or whole bOrdered By: Nayana Peter on 12-13-2024 GFR/1.73 sq M.predicted among non-blacks MDRD (S/P/Bld) [Vol rate/Area] 92 mL/min/{1.73_m2} >60 [facility] Comment on above: mL/min/1.73m2 CKD-EP I Creatinine Equation (2020) Hematocrit Auto (Bld) [Volum e fraction]Ordered By: Nayana Peter on 12-13-2024 Hematocrit (Bld) [Volume fraction] 40.5 % 37-47 [facility] Hemoglobin measurementOrdere d By: Nayana Peter on 12-13-2024 Hemoglobin (Bld) [Mass/Vol] 13.2 g/dL 12.0-15.0 [facility] Immature granulocytes/100 WB C Auto (Bld)Ordered By: Nayana Peter on 12-13-2024 Immature granulocytes/100 WBC (Bld) 0.800 % 0.0-0.9 [facility] Comment on above: IG% - Immature Granu locytes (promyelocytes, myelocytes and metamyelocytes) > 1% indicates that a LEFT SHIFT is Present. Laboratory - Chemistry and C hemistry - challengeOrdered By: Nayana Peter on 12-13-2024 AST [Catalytic activity/Vol] 37 U/L High <32 [facility] MCV (mean corpuscular volume ) determinationOrdered By: Nayana Peter on 12-13-2024 MCV (RBC) [Entitic vol] 83.2 fL 81-99 [facility] Mean corpuscular hemoglobin (MCH) determinationOrdered By: Nayana Peter on 12-13-2024 MCH (RBC) [Entitic mass] 27.1 pg 27.0-32.0 [facility] Mean corpuscular hemoglobin concentration (MCHC) determinationOrdered By: Nayana Peter on 12-13-2024 MCHC (RBC) [Mass/Vol] 32.6 g/dL 32-36 [facility] Mean platelet volume determi nationOrdered By: Nayana Peter on 12-13-2024 Platelet mean volume (Bld) [Entitic vol] 10.1 fL 6.2-12.0 [facility] Monocyte percentageOrdered B y: Nayana Peter on 12-13-2024 Monocytes/100 WBC (Bld) 7.5 % 0-10 [facility] Neutrophil percentageOrdered By: Nayana Peter on 12-13-2024 Neutrophils/100 WBC (Bld) 52.2 % 47-70 [facility] Nucleated red blood cell per centageOrdered By: Nayana Peter on 12-13-2024 Nucleated RBC/100 WBC (Bld) [Ratio] 0 % 0-5 [facility] Platelet countOrdered By: Tiffanie Peter on 12-13-2024 Platelets (Bld) [#/Vol] 367 10*3/uL 150-450 [facility] Potassium measurement (mass/ volume)Ordered By: Nayana Peter on 12-13-2024 Potassium (Unsp spec) [Mass/Vol] 4.0 mmol/L 3.3-5.1 [facility] RBC Auto (Bld) [#/Vol]Ordere d By: Nayana Peter on 12-13-2024 RBC (Bld) [#/Vol] 4.87 10*6/uL 4.2-5.4 [facility] Serum creatinine measurement (mass/volume)Ordered By: Nayana Peter on 12-13-2024 Creatinine [Mass/Vol] 0.86 mg/dL 0.70-1.20 [facility] Serum globulin measurementOr dered By: Nayana Peter on 12-13-2024 Globulin (S) [Mass/Vol] 3.3 g/dL 2.2-4.2 [facility] Serum glucose measurement (m ass/volume)Ordered By: Nayana Peter on 12-13-2024 Glucose [Mass/Vol] 251 mg/dL High 70-99 [facility] Serum or plasma alanine jordan otransferase (ALT) measurementOrdered By: Nayana Peter on 12-13-2024 ALT [Catalytic activity/Vol] 36 U/L High <35 [facility] Serum or plasma albumin hussein urement (mass/volume)Ordered By: Nayana Peter on 12-13-2024 Albumin [Mass/Vol] 3.8 g/dL 3.5-5.0 [facility] Serum or plasma albumin/glob ulin mass ratioOrdered By: Nayana Peter on 12-13-2024 Albumin/Globulin [Mass ratio] 1.2 {ratio} 0.9-2.4 [facility] Serum or plasma alkaline bradley sphatase measurementOrdered By: Nayana Peter on 12-13-2024 ALP [Catalytic activity/Vol] 100 U/L 35-104 [facility] Serum or plasma calcium hussein urement (mass/volume)Ordered By: Nayana Peter on 12-13-2024 Calcium [Mass/Vol] 8.8 mg/dL 7.6-11.0 [facility] Serum or plasma urea nitroge n measurement (mass/volume)Ordered By: Nayana Peter on 12-13-2024 Urea nitrogen [Mass/Vol] 5 mg/dL 4-19 [facility] Sodium levelOrdered By: Oh Peter on 12-13-2024 Sodium [Moles/Vol] 139 mmol/L 133-145 [facility] Total proteinOrdered By: Candie Peter on 12-13-2024 Protein [Mass/Vol] 7.2 g/dL 5.9-8.4 [facility] White blood cell (WBC) count Ordered By: Nayana Peter on 12-13-2024 WBC (Bld) [#/Vol] 9.6 10*3/uL 4.4-11.0 [facility] Culture, Blood (WB)on 2024 CUB Blood cultures x2, f rom two different sites No growth in 5 days. Normal [facility] Comment on above: Performed By: #### M 200.1000, L503.6005 #### [facility] [address] [place], [place], [id number] CUB Blood cultures x2, f rom two different sites No growth in 5 days. Normal [facility] Comment on above: Performed By: #### L 700.6800, L100.0100, L500.2500 #### [facility] [address] [place], [place], [id number] Absolute lymphocyte countOrd ered By: Gale Lr on 11-28-2024 Lymphocytes Auto (Unsp spec) [#/Vol] 5.24 10*3/uL High 0.83-4.51 [facility] Absolute neutrophil countOrd ered By: Gale Lr on 11-28-2024 Neutrophils (Bld) [#/Vol] 6.1 10*3/uL 2.0-7.7 [facility] Anion gap in Serum or Plasma Ordered By: Gale Lr on 11-28-2024 Anion gap [Moles/Vol] 12 mmol/L 11-23 [facility] Automated lymphocyte count a s percentage of total leukocytesOrdered By: Gale Lr on 11-28-2024 Lymphocytes/100 WBC Auto (Unsp spec) 43.0 % High [facility] BUN/creatinine ratioOrdered By: Gale Lr on 11-28-2024 Urea nitrogen/Creatinine [Mass ratio] 12.2 mg/mg 04-30 [facility] Basic Metabolic Profile (BMP )on 11-28-2024 BUN Normal -19 [facility] Comment on above: Result Comment: DUPL ICATE Performed By: #### L 500.2500, L100.0100 #### [facility] [address] [place], [address] BUN/CRE Normal - [facility] Comment on above: Result Comment: DUPL ICATE Performed By: #### L 500.2500, L100.0100 #### [facility] [address] [place], [address] Calcium Normal 7.6-11.0 [facility] Comment on above: Result Comment: DUPL ICATE Performed By: #### L 500.2500, L100.0100 #### [facility] [address] [place], [address] CL Normal 98-108 [facility] Comment on above: Result Comment: DUPL ICATE Performed By: #### L 500.2500, L100.0100 #### [facility] [address] [place], [address] CO2 Normal 21.0-32.0 [facility] Comment on above: Result Comment: DUPL ICATE Performed By: #### L 500.2500, L100.0100 #### [facility] [address] [place], [address] CREAT,SERUM Normal 0.70-1.20 [facility] Comment on above: Result Comment: DUPL ICATE Performed By: #### L 500.2500, L100.0100 #### [facility] [address] [place], [address] eGFR Normal >60 [facility] Comment on above: Result Comment: DUPL ICATE Performed By: #### L 500.2500, L100.0100 #### [facility] [address] [place], [address] GAP Normal 5-15 [facility] Comment on above: Result Comment: DUPL ICATE Performed By: #### L 500.2500, L100.0100 #### [facility] [address] [place], [address] GLU Normal 70-99 [facility] Comment on above: Result Comment: DUPL ICATE Performed By: #### L 500.2500, L100.0100 #### [facility] [address] [place], [address] Potassium Normal 3.3-5.1 [facility] Comment on above: Result Comment: DUPL ICATE Performed By: #### L 500.2500, L100.0100 #### [facility] [address] [place], [address] Basic Metabolic Profile (BMP) Normal 133-145 [facility] Comment on above: Result Comment: DUPL ICATE Performed By: #### L 500.2500, L100.0100 #### [facility] [address] [place], [address] BUN/CRE 12.2 RATIO Normal 10-20 [facility] Comment on above: Performed By: #### L 700.6800, L100.0100, L500.2500 #### [facility] [address] [place], [address] Calcium [Mass/Vol] 7.9 mg/dL Normal 7.6-11.0 [facility] Comment on above: Performed By: #### L 700.6800, L100.0100, L500.2500 #### [facility] [address] [place], [address] Chloride [Moles/Vol] 104 mmol/L Normal 98-108 [facility] Comment on above: Performed By: #### L 700.6800, L100.0100, L500.2500 #### [facility] [address] [place], [address] CO2 [Moles/Vol] 24.7 mmol/L Normal 21.0-32.0 [facility] Comment on above: Performed By: #### L 700.6800, L100.0100, L500.2500 #### [facility] [address] [place], [address] Creatinine [Mass/Vol] 1.02 mg/dL Normal 0.70-1.20 [facility] Comment on above: Performed By: #### L 700.6800, L100.0100, L500.2500 #### [facility] [address] [place], [address] ECRCL 99.83 ml/min Normal 50-250 [facility] Comment on above: Performed By: #### L 700.6800, L100.0100, L500.2500 #### [facility] [address] [place], [address] GAP 12 Normal 5-15 [facility] Comment on above: Performed By: #### L 700.6800, L100.0100, L500.2500 #### [facility] [address] [place], [address] GFR/1.73 sq M.predicted among non-blacks MDRD (S/P/Bld) [Vol rate/Area] 75 mL/min/{1.73_m2} Normal >60 [facility] Comment on above: Result Comment: mL/m in/1.73m2 CKD-EPI Creatinine Equation (2020) Performed By: #### L 700.6800, L100.0100, L500.2500 #### [facility] [address] [place], [address] Glucose [Mass/Vol] 134 mg/dL High 70-99 [facility] Comment on above: Performed By: #### L 700.6800, L100.0100, L500.2500 #### [facility] [address] [place], [address] Potassium [Moles/Vol] 3.5 mmol/L Normal 3.3-5.1 [facility] Comment on above: Performed By: #### L 700.6800, L100.0100, L500.2500 #### [facility] [address] [place], [address] Sodium [Moles/Vol] 141 mmol/L Normal 133-145 [facility] Comment on above: Performed By: #### L 700.6800, L100.0100, L500.2500 #### [facility] [address] [place], [address] Urea nitrogen [Mass/Vol] 12 mg/dL Normal 4-19 [facility] Comment on above: Performed By: #### L 700.6800, L100.0100, L500.2500 #### [facility] [address] [place], [address] Basophil percentageOrdered B y: Gale Lr on 11-28-2024 Basophils/100 WBC (Bld) 0.6 % 0-1 [facility] Bedside Glucoseon 11-28-2024 F[place] GLU 127 mg/dL High 74-106 [facility] Comment on above: Result Comment: BULL [place] OF PATIENT CARE PER NURSING PROTOCOL Performed By: #### L 501.080 #### [facility] [address] [place], [address] CBC W/Diff, Automatedon 11-10 Absolute Neut Normal 2.0-7.7 [facility] Comment on above: Result Comment: DUPL ICATE Performed By: #### L 500.2500, L100.0100 #### [facility] [address] [place], [address] HCT Normal 37-47 [facility] Comment on above: Result Comment: DUPL ICATE Performed By: #### L 500.2500, L100.0100 #### [facility] [address] [place], [address] HGB Normal 12.0-15.0 [facility] Comment on above: Result Comment: DUPL ICATE Performed By: #### L 500.2500, L100.0100 #### [facility] [address] [place], [address] MCH Normal 27.0-32.0 [facility] Comment on above: Result Comment: DUPL ICATE Performed By: #### L 500.2500, L100.0100 #### [facility] [address] [place], [address] MCHC Normal 32-36 [facility] Comment on above: Result Comment: DUPL ICATE Performed By: #### L 500.2500, L100.0100 #### [facility] [address] [place], [address] MCV Normal 81-99 [facility] Comment on above: Result Comment: DUPL ICATE Performed By: #### L 500.2500, L100.0100 #### [facility] [address] [place], [address] NEUT% Normal 47-70 [facility] Comment on above: Result Comment: DUPL ICATE Performed By: #### L 500.2500, L100.0100 #### [facility] [address] [place], [address] PLT Normal 150-450 [facility] Comment on above: Result Comment: DUPL ICATE Performed By: #### L 500.2500, L100.0100 #### [facility] [address] [place], [address] RBC Normal 4.2-5.4 [facility] Comment on above: Result Comment: DUPL ICATE Performed By: #### L 500.2500, L100.0100 #### [facility] [address] [place], [address] RDW CV Normal 11.6-14.6 [facility] Comment on above: Result Comment: DUPL ICATE Performed By: #### L 500.2500, L100.0100 #### [facility] [address] [place], [address] RDW SD Normal 35.1-43.9 [facility] Comment on above: Result Comment: DUPL ICATE Performed By: #### L 500.2500, L100.0100 #### [facility] [address] [place], [address] WBC Normal 4.4-11.0 [facility] Comment on above: Result Comment: DUPL ICATE Performed By: #### L 500.2500, L100.0100 #### [facility] [address] [place], [address] Absolute Lymph 5.24 X10 3/uL High 0.83-4.51 [facility] Comment on above: Performed By: #### L 700.6800, L100.0100, L500.2500 #### [facility] [address] [place], [address] Absolute Neut 6.1 X10 3/uL Normal 2.0-7.7 [facility] Comment on above: Performed By: #### L 700.6800, L100.0100, L500.2500 #### [facility] [address] [place], [address] Basophils/100 WBC (Bld) 0.6 % Normal 0-1 [facility] Comment on above: Performed By: #### L 700.6800, L100.0100, L500.2500 #### [facility] [address] [place], [address] Eosinophils/100 WBC (Bld) 0.5 % Normal 0-5 [facility] Comment on above: Performed By: #### L 700.6800, L100.0100, L500.2500 #### [facility] [address] [place], [address] Erythrocyte distribution width (RBC) [Ratio] 13.7 % Normal 11.6-14.6 [facility] Comment on above: Performed By: #### L 700.6800, L100.0100, L500.2500 #### [facility] [address] [place], [address] Hematocrit (Bld) [Volume fraction] 37.0 % Normal 37-47 [facility] Comment on above: Performed By: #### L 700.6800, L100.0100, L500.2500 #### [facility] [address] [place], [address] Hemoglobin (Bld) [Mass/Vol] 12.1 g/dL Normal 12.0-15.0 [facility] Comment on above: Performed By: #### L 700.6800, L100.0100, L500.2500 #### [facility] [address] [place], [address] IG% 0.800 Normal 0.0-0.9 [facility] Comment on above: Result Comment: IG% - Immature Granulocytes (promyelocytes, myelocytes and metamyelocytes) > 1% indicates that a LEFT SHIFT is Present. Performed By: #### L 700.6800, L100.0100, L500.2500 #### [facility] [address] [place], [address] Lymphocytes/100 WBC (Bld) 43.0 % High 19-41 [facility] Comment on above: Performed By: #### L 700.6800, L100.0100, L500.2500 #### [facility] [address] [place], [address] MCH (RBC) [Entitic mass] 27.3 pg Normal 27.0-32.0 [facility] Comment on above: Performed By: #### L 700.6800, L100.0100, L500.2500 #### [facility] [address] [place], [address] MCHC (RBC) [Mass/Vol] 32.7 g/dL Normal 32-36 [facility] Comment on above: Performed By: #### L 700.6800, L100.0100, L500.2500 #### [facility] [address] [place], [address] MCV (RBC) [Entitic vol] 83.3 fL Normal 81-99 [facility] Comment on above: Performed By: #### L 700.6800, L100.0100, L500.2500 #### [facility] [address] [place], [address] Monocytes/100 WBC (Bld) 5.3 % Normal 0-10 [facility] Comment on above: Performed By: #### L 700.6800, L100.0100, L500.2500 #### [facility] [address] [place], [address] Neutrophils/100 WBC (Bld) 49.8 % Normal 47-70 [facility] Comment on above: Performed By: #### L 700.6800, L100.0100, L500.2500 #### [facility] [address] [place], [address] Nucleated RBC (Bld) [#/Vol] 0 10*3/uL Normal 0-5 [facility] Comment on above: Performed By: #### L 700.6800, L100.0100, L500.2500 #### [facility] [address] [place], [address] Platelet mean volume (Bld) [Entitic vol] 9.3 fL Normal 6.2-12.0 [facility] Comment on above: Performed By: #### L 700.6800, L100.0100, L500.2500 #### [facility] [address] [place], [address] Platelets (Bld) [#/Vol] 400 10*3/uL Normal 150-450 [facility] Comment on above: Performed By: #### L 700.6800, L100.0100, L500.2500 #### [facility] [address] [place], [address] RBC (Bld) [#/Vol] 4.44 10*6/uL Normal 4.2-5.4 [facility] Comment on above: Performed By: #### L 700.6800, L100.0100, L500.2500 #### [facility] [address] [place], [address] RDW SD 41.8 fl Normal 35.1-43.9 [facility] Comment on above: Performed By: #### L 700.6800, L100.0100, L500.2500 #### [facility] [address] [place], [address] WBC (Bld) [#/Vol] 12.2 10*3/uL High 4.4-11.0 [facility] Comment on above: Performed By: #### L 700.6800, L100.0100, L500.2500 #### [facility] [address] [place], [address] Carbon dioxide, total [Moles /volume] in Central venous bloodOrdered By: Gale Lr on 11-28-2024 CO2 [Moles/Vol] 24.7 mmol/L 21.0-32.0 [facility] Chloride assayOrdered By: Sun Lr on 11-28-2024 Chloride [Moles/Vol] 104 mmol/L 98-108 [facility] Eosinophil percentageOrdered By: Gale Lr on 11-28-2024 Eosinophils/100 WBC (Bld) 0.5 % 0-5 [facility] Erythrocyte distribution wid th ratioOrdered By: Gale Lr on 11-28-2024 Erythrocyte distribution width (RBC) [Ratio] 13.7 % 11.6-14.6 [facility] Erythrocyte distribution wid th standard deviationOrdered By: Gale Lr on 11-28-2024 Erythrocyte distribution width (RBC) [Ratio] 41.8 fl 35.1-43.9 [facility] Glomerular filtration rate ( GFR) estimation/1.73 sq m using serum, plasma, or whole bOrdered By: Gale Lr on 11-28-2024 GFR/1.73 sq M.predicted among non-blacks MDRD (S/P/Bld) [Vol rate/Area] 75 mL/min/{1.73_m2} >60 [facility] Comment on above: mL/min/1.73m2 CKD-EP I Creatinine Equation (2020) [facility] deOrdered By: Gale Lr on 11-28-2024 Glucose [Mass/Vol] 127 mg/dL High 74-106 [facility] Comment on above: MANAGEMENT OF PATIEN T CARE PER NURSING PROTOCOL Hematocrit Auto (Bld) [Volum e fraction]Ordered By: Gale Lr on 11-28-2024 Hematocrit (Bld) [Volume fraction] 37.0 % 37-47 [facility] Hemoglobin measurementOrdere d By: Gale Lr on 11-28-2024 Hemoglobin (Bld) [Mass/Vol] 12.1 g/dL 12.0-15.0 [facility] Immature granulocytes/100 WB C Auto (Bld)Ordered By: Gale Lr on 11-28-2024 Immature granulocytes/100 WBC (Bld) 0.800 % 0.0-0.9 [facility] Comment on above: IG% - Immature Granu locytes (promyelocytes, myelocytes and metamyelocytes) > 1% indicates that a LEFT SHIFT is Present. MCV (mean corpuscular volume ) determinationOrdered By: Gale Lr on 11-28-2024 MCV (RBC) [Entitic vol] 83.3 fL 81-99 [facility] Mean corpuscular hemoglobin (MCH) determinationOrdered By: Gale Lr on 11-28-2024 MCH (RBC) [Entitic mass] 27.3 pg 27.0-32.0 [facility] Mean corpuscular hemoglobin concentration (MCHC) determinationOrdered By: Gale Lr on 11-28-2024 MCHC (RBC) [Mass/Vol] 32.7 g/dL 32-36 [facility] Mean platelet volume determi nationOrdered By: Gale Lr on 11-28-2024 Platelet mean volume (Bld) [Entitic vol] 9.3 fL 6.2-12.0 [facility] Monocyte percentageOrdered B y: Gale Lr on 11-28-2024 Monocytes/100 WBC (Bld) 5.3 % 0-10 [facility] Neutrophil percentageOrdered By: Gale Lr on 11-28-2024 Neutrophils/100 WBC (Bld) 49.8 % 47-70 [facility] Nucleated red blood cell per centageOrdered By: Gale Lr on 11-28-2024 Nucleated RBC/100 WBC (Bld) [Ratio] 0 % 0-5 [facility] Platelet countOrdered By: Sun Lr on 11-28-2024 Platelets (Bld) [#/Vol] 400 10*3/uL 150-450 [facility] Potassium measurement (mass/ volume)Ordered By: Gale Lr on 11-28-2024 Potassium (Unsp spec) [Mass/Vol] 3.5 mmol/L 3.3-5.1 [facility] RBC Auto (Bld) [#/Vol]Ordere d By: Gale Lr on 11-28-2024 RBC (Bld) [#/Vol] 4.44 10*6/uL 4.2-5.4 [facility] Serum creatinine measurement (mass/volume)Ordered By: Gale Lr on 11-28-2024 Creatinine [Mass/Vol] 1.02 mg/dL 0.70-1.20 [facility] Serum glucose measurement (m ass/volume)Ordered By: Gale Lr on 11-28-2024 Glucose [Mass/Vol] 134 mg/dL High 70-99 [facility] Serum or plasma calcium hussein urement (mass/volume)Ordered By: Gale Lr on 11-28-2024 Calcium [Mass/Vol] 7.9 mg/dL 7.6-11.0 [facility] Serum or plasma urea nitroge n measurement (mass/volume)Ordered By: Gale Lr on 11-28-2024 Urea nitrogen [Mass/Vol] 12 mg/dL 4-19 [facility] Sodium levelOrdered By: Argelia Lr on 11-28-2024 Sodium [Moles/Vol] 141 mmol/L 133-145 [facility] White blood cell (WBC) count Ordered By: Gale Lr on 11-28-2024 WBC (Bld) [#/Vol] 12.2 10*3/uL High 4.4-11.0 [facility] Abdomen/Pelvis WITH Contrast on 11-27-2024 Abdomen/Pelvis WITH Contrast [facility] Imaging Services [address] [place], [place] [id number] ([phone] Abdomen/Pelvis WITH Contrast MR#: [id number] Acct: [id number] Name: GHISLAINE GIVENS Rep #: [id number] : 1990 F 34 From: Bernard ruelas MD PCP: Amy Solorzano, [place], GRIZZLYMAN-C Status: ADM IN Study: Abdomen/Pelvis WITH Contrast Date of Exam: Exam# [id number] Ordering Dr: Clare Loo-Sara PROCEDURE: ABDOMEN/PELVIS WITH CONTRAST 11/27/2024 REASON FOR [...] as compared to prior study. Reading [facility] CC: ESCOBAR Loo; [facility] GRIZZLYMANPanC Amy Solorzano [employer] Extension Specialist: Signed Normal [facility] Basic Metabolic Profile (BMP )on 11-27-2024 BUN/CRE 15.0 RATIO Normal 10-20 [facility] Comment on above: Performed By: #### L 500.2500, L100.0100 #### [facility] [address] [place], [address] Calcium [Mass/Vol] 7.9 mg/dL Normal 7.6-11.0 [facility] Comment on above: Performed By: #### L 500.2500, L100.0100 #### [facility] [address] [place], [address] Chloride [Moles/Vol] 102 mmol/L Normal 98-108 [facility] Comment on above: Performed By: #### L 500.2500, L100.0100 #### [facility] [address] [place], [address] CO2 [Moles/Vol] 24.2 mmol/L Normal 21.0-32.0 [facility] Comment on above: Performed By: #### L 500.2500, L100.0100 #### [facility] [address] [place], [address] Creatinine [Mass/Vol] 1.07 mg/dL Normal 0.70-1.20 [facility] Comment on above: Performed By: #### L 500.2500, L100.0100 #### [facility] [address] [place], [address] ECRCL 95.16 ml/min Normal 50-250 [facility] Comment on above: Performed By: #### L 500.2500, L100.0100 #### [facility] [address] [place], [address] GAP 13 Normal 5-15 [facility] Comment on above: Performed By: #### L 500.2500, L100.0100 #### [facility] [address] [place], [address] GFR/1.73 sq M.predicted among non-blacks MDRD (S/P/Bld) [Vol rate/Area] 71 mL/min/{1.73_m2} Normal >60 [facility] Comment on above: Result Comment: mL/m in/1.73m2 CKD-EPI Creatinine Equation (2020) Performed By: #### L 500.2500, L100.0100 #### [facility] [address] [place], [address] Glucose [Mass/Vol] 217 mg/dL High 70-99 [facility] Comment on above: Performed By: #### L 500.2500, L100.0100 #### [facility] [address] [place], [address] Potassium [Moles/Vol] 4.1 mmol/L Normal 3.3-5.1 [facility] Comment on above: Performed By: #### L 500.2500, L100.0100 #### [facility] [address] [place], [address] Sodium [Moles/Vol] 139 mmol/L Normal 133-145 [facility] Comment on above: Performed By: #### L 500.2500, L100.0100 #### [facility] [address] [place], [address] Urea nitrogen [Mass/Vol] 16 mg/dL Normal 4-19 [facility] Comment on above: Performed By: #### L 500.2500, L100.0100 #### [facility] [address] [place], [address] Bedside Glucoseon 11-27-2024 FINGERSTICK GLU 175 mg/dL High 74-106 [facility] Comment on above: Result Comment: BULL SAMAYOA OF PATIENT CARE PER NURSING PROTOCOL Performed By: #### L 500.2500, L100.0100 #### [facility] [address] [place], [address] FINGERSTICK GLU 147 mg/dL High 74-106 [facility] Comment on above: Result Comment: BULL GEMENT OF PATIENT CARE PER NURSING PROTOCOL Performed By: #### L 500.2500, L100.0100 #### [facility] [address] [place], [address] FINGERSTICK GLU 197 mg/dL High 74-106 [facility] Comment on above: Result Comment: BULL GEMENT OF PATIENT CARE PER NURSING PROTOCOL Performed By: #### L 500.2500, L100.0100 #### [facility] [address] [place], [address] FINGERSTICK GLU 185 mg/dL High -106 [facility] Comment on above: Result Comment: BULL GEMENT OF PATIENT CARE PER NURSING PROTOCOL Performed By: #### L 500.2500, L100.0100 #### [facility] [address] [place], [address] Bilirubin directOrdered By: Gale Lr on 11-27-2024 Bilirubin.direct [Mass/Vol] 0.14 mg/dL 0.00-0.30 [facility] Bilirubin, totalOrdered By: Gale Lr on 11-27-2024 Bilirubin [Mass/Vol] 0.35 mg/dL 0.00-1.30 [facility] CBC W/Diff, Automatedon 11-09 Absolute Lymph 2.31 X10 3/uL Normal 0.83-4.51 [facility] Comment on above: Performed By: #### L 500.2500, L100.0100 #### [facility] [address] [place], [address] Absolute Neut 9.7 X10 3/uL High 2.0-7.7 [facility] Comment on above: Performed By: #### L 500.2500, L100.0100 #### [facility] [address] [place], [address] Basophils/100 WBC (Bld) 0.2 % Normal 0-1 [facility] Comment on above: Performed By: #### L 500.2500, L100.0100 #### [facility] [address] [place], [address] Eosinophils/100 WBC (Bld) 0.0 % Normal 0-5 [facility] Comment on above: Performed By: #### L 500.2500, L100.0100 #### [facility] [address] [place], [address] Erythrocyte distribution width (RBC) [Ratio] 13.8 % Normal 11.6-14.6 [facility] Comment on above: Performed By: #### L 500.2500, L100.0100 #### [facility] [address] [place], [address] Hematocrit (Bld) [Volume fraction] 34.7 % Low 37-47 [facility] Comment on above: Performed By: #### L 500.2500, L100.0100 #### [facility] [address] [place], [address] Hemoglobin (Bld) [Mass/Vol] 11.3 g/dL Low 12.0-15.0 [facility] Comment on above: Performed By: #### L 500.2500, L100.0100 #### [facility] [address] [place], [address] IG% 0.600 Normal 0.0-0.9 [facility] Comment on above: Result Comment: IG% - Immature Granulocytes (promyelocytes, myelocytes and metamyelocytes) > 1% indicates that a LEFT SHIFT is Present. Performed By: #### L 500.2500, L100.0100 #### [facility] [address] [place], [address] Lymphocytes/100 WBC (Bld) 18.1 % Low 19-41 [facility] Comment on above: Performed By: #### L 500.2500, L100.0100 #### [facility] [address] [place], [address] MCH (RBC) [Entitic mass] 27.0 pg Normal 27.0-32.0 [facility] Comment on above: Performed By: #### L 500.2500, L100.0100 #### [facility] [address] [place], [address] MCHC (RBC) [Mass/Vol] 32.6 g/dL Normal 32-36 [facility] Comment on above: Performed By: #### L 500.2500, L100.0100 #### [facility] [address] [place], [address] MCV (RBC) [Entitic vol] 83.0 fL Normal 81-99 [facility] Comment on above: Performed By: #### L 500.2500, L100.0100 #### [facility] [address] [place], [address] Monocytes/100 WBC (Bld) 5.2 % Normal 0-10 [facility] Comment on above: Performed By: #### L 500.2500, L100.0100 #### [facility] [address] [place], [address] Neutrophils/100 WBC (Bld) 75.9 % High 47-70 [facility] Comment on above: Performed By: #### L 500.2500, L100.0100 #### [facility] [address] [place], [address] Nucleated RBC (Bld) [#/Vol] 0 10*3/uL Normal 0-5 [facility] Comment on above: Performed By: #### L 500.2500, L100.0100 #### [facility] [address] [place], [address] Platelet mean volume (Bld) [Entitic vol] 9.6 fL Normal 6.2-12.0 [facility] Comment on above: Performed By: #### L 500.2500, L100.0100 #### [facility] [address] [place], [address] Platelets (Bld) [#/Vol] 354 10*3/uL Normal 150-450 [facility] Comment on above: Performed By: #### L 500.2500, L100.0100 #### [facility] [address] [place], [address] RBC (Bld) [#/Vol] 4.18 10*6/uL Low 4.2-5.4 [facility] Comment on above: Performed By: #### L 500.2500, L100.0100 #### [facility] [address] [place], [address] RDW SD 42.2 fl Normal 35.1-43.9 [facility] Comment on above: Performed By: #### L 500.2500, L100.0100 #### [facility] [address] [place], [address] WBC (Bld) [#/Vol] 12.8 10*3/uL High 4.4-11.0 [facility] Comment on above: Performed By: #### L 500.2500, L100.0100 #### [facility] [address] [place], [address] Laboratory - Chemistry and C hemistry - challengeOrdered By: Gale Lr on 11-27-2024 AST [Catalytic activity/Vol] 21 U/L <32 [facility] Liver Profileon 11-27-2024 Albumin [Mass/Vol] 3.5 g/dL Normal 3.5-5.0 [facility] Comment on above: Performed By: #### L 500.3400 #### [facility] [address] [place], [address] ALK PHOS 88 U/L Normal 35-104 [facility] Comment on above: Performed By: #### L 500.3400 #### [facility] [address] [place], [address] ALT [Catalytic activity/Vol] 12 U/L Normal <=34 [facility] Comment on above: Performed By: #### L 500.3400 #### [facility] [address] [place], [address] AST [Catalytic activity/Vol] 21 U/L Normal <=31 [facility] Comment on above: Performed By: #### L 500.3400 #### [facility] [address] [place], [address] Bilirubin [Mass/Vol] 0.35 mg/dL Normal 0.00-1.30 [facility] Comment on above: Performed By: #### L 500.3400 #### [facility] [address] [place], [address] Bilirubin.direct [Mass/Vol] 0.14 mg/dL Normal 0.00-0.30 [facility] Comment on above: Performed By: #### L 500.3400 #### [facility] [address] [place], [address] Globulin (S) [Mass/Vol] 3.6 g/dL Normal 2.2-4.2 [facility] Comment on above: Performed By: #### L 500.3400 #### [facility] [address] [place], [address] T PROT 7.1 g/dL Normal 5.9-8.4 [facility] Comment on above: Performed By: #### L 500.3400 #### [facility] [address] [place], [address] Serum globulin measurementOr dered By: Gale Lr on 11-27-2024 Globulin (S) [Mass/Vol] 3.6 g/dL 2.2-4.2 [facility] Serum or plasma alanine jordan otransferase (ALT) measurementOrdered By: Gale Lr on 11-27-2024 ALT [Catalytic activity/Vol] 12 U/L <35 [facility] Serum or plasma albumin hussein urement (mass/volume)Ordered By: Gale Lr on 11-27-2024 Albumin [Mass/Vol] 3.5 g/dL 3.5-5.0 [facility] Serum or plasma alkaline bradley sphatase measurementOrdered By: Gale Lr on 11-27-2024 ALP [Catalytic activity/Vol] 88 U/L 35-104 [facility] Total proteinOrdered By: Sugar rL on 11-27-2024 Protein [Mass/Vol] 7.1 g/dL 5.9-8.4 [facility] Abdomen Single Viewon 2024 Abdomen Single View [facility] Imaging Services [address] [place] [address] [id number] Abdomen Single View MR#: [id number] Acct: [id number] Name: GHISLAINE GIVENS Rep #: [id number] : 1990 F 34 From: Frantz Barfield MD PCP: Amy Solorzano [facility], GRIZZLYMAN-C Status: ADM IN Study: Abdomen Single View Date of Exam: 11/26/24 Exam# [id number] Ordering Dr: Annalise Welch MD EXAM: XR Abdomen, 1 View CLINICAL INDICATION: FECAL IMPACTION-RECTUM TECHNIQUE: Frontal supine view of the abdomen/pelvis. COMPARISON: No relevant prior studies available. FINDINGS: GASTROINTESTINAL TRACT: Constipation with suggestion of fecal impaction of the rectum. No dilation. BONES/JOINTS: Unremarkable. No acute fracture. RAD/Abdomen Single View IMPRESSION: Constipation with suggestion of fecal impaction of the rectum. Reading Location: [facility] CC: [facility] GRIZZLYMAN-C Amy Solorzano; Dr. Annalise Welch MD Family Development Extension Specialist: Signed Normal [facility] Basic Metabolic Profile (BMP )on 11-26-2024 BUN/CRE 15.0 RATIO Normal 10-20 [facility] Comment on above: Performed By: #### L 500.3400 #### [facility] [address] [place], [address] Calcium [Mass/Vol] 7.8 mg/dL Normal 7.6-11.0 [facility] Comment on above: Performed By: #### L 500.3400 #### [facility] [address] [place], [address] Chloride [Moles/Vol] 104 mmol/L Normal 98-108 [facility] Comment on above: Performed By: #### L 500.3400 #### [facility] [address] [place], [address] CO2 [Moles/Vol] 22.6 mmol/L Normal 21.0-32.0 [facility] Comment on above: Performed By: #### L 500.3400 #### [facility] [address] [place], [address] Creatinine [Mass/Vol] 1.16 mg/dL Normal 0.70-1.20 [facility] Comment on above: Performed By: #### L 500.3400 #### [facility] [address] [place], [address] ECRCL 87.78 ml/min Normal 50-250 [facility] Comment on above: Performed By: #### L 500.3400 #### [facility] [address] [place], [address] GAP 11 Normal 5-15 [facility] Comment on above: Performed By: #### L 500.3400 #### [facility] [address] [place], [address] GFR/1.73 sq M.predicted among non-blacks MDRD (S/P/Bld) [Vol rate/Area] 64 mL/min/{1.73_m2} Normal >60 [facility] Comment on above: Result Comment: mL/m in/1.73m2 CKD-EPI Creatinine Equation (2020) Performed By: #### L 500.3400 #### [facility] [address] [place], [address] Glucose [Mass/Vol] 148 mg/dL High 70-99 [facility] Comment on above: Performed By: #### L 500.3400 #### [facility] [address] [place], [address] Potassium [Moles/Vol] 4.0 mmol/L Normal 3.3-5.1 [facility] Comment on above: Performed By: #### L 500.3400 #### [facility] [address] [place], [address] Sodium [Moles/Vol] 137 mmol/L Normal 133-145 [facility] Comment on above: Performed By: #### L 500.3400 #### [facility] [address] [place], [address] Urea nitrogen [Mass/Vol] 17 mg/dL Normal 4-19 [facility] Comment on above: Performed By: #### L 500.3400 #### [facility] [address] [place], [address] Bedside Glucoseon 11-26-2024 FINGERSTICK GLU 185 mg/dL High 74-106 [facility] Comment on above: Result Comment: BULL GEMENT OF PATIENT CARE PER NURSING PROTOCOL Performed By: #### L 501.080 #### [facility] [address] [place], [address] FINGERSTICK GLU 218 mg/dL High 74-106 [facility] Comment on above: Result Comment: UBLL GEMENT OF PATIENT CARE PER NURSING PROTOCOL Performed By: #### L 700.6800, L100.0100, L500.2500 #### [facility] [address] [place], [address] FINGERSTICK GLU 202 mg/dL High 74-106 [facility] Comment on above: Result Comment: BULL GEMENT OF PATIENT CARE PER NURSING PROTOCOL Performed By: #### L 500.2500, L100.0100 #### [facility] [address] [place], [address] FINGERSTICK GLU 160 mg/dL High 74-106 [facility] Comment on above: Result Comment: BULL GEMENT OF PATIENT CARE PER NURSING PROTOCOL Performed By: #### L 700.6800, L100.0100, L500.2500 #### [facility] [address] [place], [address] FINGERSTICK GLU 166 mg/dL High 74-106 [facility] Comment on above: Result Comment: BULL GEMENT OF PATIENT CARE PER NURSING PROTOCOL Performed By: #### L 500.2500, L100.0100 #### [facility] [address] [place], [address] CBC W/Diff, Automatedon 05-1 Absolute Lymph 3.42 X10 3/uL Normal 0.83-4.51 [facility] Comment on above: Performed By: #### L 500.2500, L100.0100 #### [facility] [address] [place], [address] Absolute Neut 12.9 X10 3/uL High 2.0-7.7 [facility] Comment on above: Performed By: #### L 500.2500, L100.0100 #### [facility] [address] [place], [address] Basophils/100 WBC (Bld) 0.2 % Normal 0-1 [facility] Comment on above: Performed By: #### L 500.2500, L100.0100 #### [facility] [address] [place], [address] Eosinophils/100 WBC (Bld) 0.2 % Normal 0-5 [facility] Comment on above: Performed By: #### L 500.2500, L100.0100 #### [facility] [address] [place], [address] Erythrocyte distribution width (RBC) [Ratio] 13.9 % Normal 11.6-14.6 [facility] Comment on above: Performed By: #### L 500.2500, L100.0100 #### [facility] [address] [place], [address] Hematocrit (Bld) [Volume fraction] 34.2 % Low 37-47 [facility] Comment on above: Performed By: #### L 500.2500, L100.0100 #### [facility] [address] [place], [address] Hemoglobin (Bld) [Mass/Vol] 11.0 g/dL Low 12.0-15.0 [facility] Comment on above: Performed By: #### L 500.2500, L100.0100 #### [facility] [address] [place], [address] IG% 0.600 Normal 0.0-0.9 [facility] Comment on above: Result Comment: IG% - Immature Granulocytes (promyelocytes, myelocytes and metamyelocytes) > 1% indicates that a LEFT SHIFT is Present. Performed By: #### L 500.2500, L100.0100 #### [facility] [address] [place], [address] Lymphocytes/100 WBC (Bld) 19.4 % Normal 19-41 [facility] Comment on above: Performed By: #### L 500.2500, L100.0100 #### [facility] [address] [place], [address] MCH (RBC) [Entitic mass] 27.0 pg Normal 27.0-32.0 [facility] Comment on above: Performed By: #### L 500.2500, L100.0100 #### [facility] [address] [place], [address] MCHC (RBC) [Mass/Vol] 32.2 g/dL Normal 32-36 [facility] Comment on above: Performed By: #### L 500.2500, L100.0100 #### [facility] [address] [place], [address] MCV (RBC) [Entitic vol] 83.8 fL Normal 81-99 [facility] Comment on above: Performed By: #### L 500.2500, L100.0100 #### [facility] [address] [place], [address] Monocytes/100 WBC (Bld) 6.2 % Normal 0-10 [facility] Comment on above: Performed By: #### L 500.2500, L100.0100 #### [facility] [address] [place], [address] Neutrophils/100 WBC (Bld) 73.4 % High 47-70 [facility] Comment on above: Performed By: #### L 500.2500, L100.0100 #### [facility] [address] [place], [address] Nucleated RBC (Bld) [#/Vol] 0 10*3/uL Normal 0-5 [facility] Comment on above: Performed By: #### L 500.2500, L100.0100 #### [facility] [address] [place], [address] Platelet mean volume (Bld) [Entitic vol] 9.8 fL Normal 6.2-12.0 [facility] Comment on above: Performed By: #### L 500.2500, L100.0100 #### [facility] [address] [place], [address] Platelets (Bld) [#/Vol] 308 10*3/uL Normal 150-450 [facility] Comment on above: Performed By: #### L 500.2500, L100.0100 #### [facility] [address] [place], [address] RBC (Bld) [#/Vol] 4.08 10*6/uL Low 4.2-5.4 [facility] Comment on above: Performed By: #### L 500.2500, L100.0100 #### [facility] [address] [place], [address] RDW SD 43.0 fl Normal 35.1-43.9 [facility] Comment on above: Performed By: #### L 500.2500, L100.0100 #### [facility] [address] [place], [address] WBC (Bld) [#/Vol] 17.6 10*3/uL High 4.4-11.0 [facility] Comment on above: Performed By: #### L 500.2500, L100.0100 #### [facility] [address] [place], [address] Abdomen/Pelvis W IV Cont ONL Yon 11-25-2024 Abdomen/Pelvis W IV Cont ONLY [facility] Imaging Services [address] [place] [address] Abdomen/Pelvis W IV Cont ONLY MR#: [id number] Acct: [id number] Name: GHISLAINE GIVENS Rep #: [id number] : 1990 F 34 From: Frantz Barfield MD PCP: Amy Solorzano Sara, GRIZZLYMAN-C Status: [facility] ER Study: Abdomen/Pelvis W IV Cont ONLY Date of Exam: Exam# [id number] Ordering Dr: Drew Hinson MD EXAM: CT [...] 2. Hepatomegaly with fatty infiltration. Reading Location: [facility] CC: [facility] GRIZZLYMAN-Sara Solorzano; Dr. Drew Hinson MD Family Development Extension Specialist: Signed Normal [facility] Absolute lymphocyte countOrd ered By: Drew Hinson on 11-25-2024 Lymphocytes Auto (Unsp spec) [#/Vol] 3.09 10*3/uL 0.83-4.51 [facility] Absolute neutrophil countOrd ered By: Drew Hinson on 11-25-2024 Neutrophils (Bld) [#/Vol] 21.5 10*3/uL High 2.0-7.7 [facility] Acute Abdomen Inc Cheston [facility] Chest [facility] Imaging Services [address] [place] [address] Acute Abdomen Inc Chest MR#: [id number] Acct: [id number] Name: GHISLAINE GIVENS Rep #: [id number] : 1990 F 34 From: Frantz Barfield MD PCP: Amy Solorzano, [facility], GRIZZLYMAN-C Status: REG ER Study: Acute Abdomen Inc Chest Date of Exam: 11/25/24 Exam# [id number] Ordering Dr: Drew Hinson MD EXAM: XR [...] the colon consistent with constipation. Reading Location: [id number] CC: [facility] GRIZZLYMAN-C Amy Solorzano; Dr. Drew Hinson MD Family Development Extension Specialist: Signed Normal [facility] Amorphous sediment detection in urine sediment by light microscopyOrdered By: Drew Hinson on 11-25-2024 Amorphous sediment LM Ql (Urine sed) 2+ URATE [facility] Anion gap in Serum or Plasma Ordered By: Drew Hinson on 11-25-2024 Anion gap [Moles/Vol] 17 mmol/L High 5-15 [facility] Automated lymphocyte count a s percentage of total leukocytesOrdered By: Drew Hinson on 11-25-2024 Lymphocytes/100 WBC Auto (Unsp spec) 11.4 % Low 19-41 [facility] BUN/creatinine ratioOrdered By: Drew Hinson on 11-25-2024 Urea nitrogen/Creatinine [Mass ratio] 15.9 mg/mg 04-30 [facility] Basic Metabolic Profile (BMP )on 11-25-2024 BUN/CRE 15.9 RATIO Normal 04-30 [facility] Comment on above: Performed By: #### L 700.6800, L100.0100, L500.2500 #### [facility] [address] [place], [address] Calcium [Mass/Vol] 9.6 mg/dL Normal 7.6-11.0 [facility] Comment on above: Performed By: #### L 700.6800, L100.0100, L500.2500 #### [facility] [address] [place], [address] Chloride [Moles/Vol] 97 mmol/L Low 98-108 [facility] Comment on above: Performed By: #### L 700.6800, L100.0100, L500.2500 #### [facility] [address] [place], [address] CO2 [Moles/Vol] 21.3 mmol/L Normal 21.0-32.0 [facility] Comment on above: Performed By: #### L 700.6800, L100.0100, L500.2500 #### [facility] [address] [place], [address] Creatinine [Mass/Vol] 1.20 mg/dL Normal 0.70-1.20 [facility] Comment on above: Performed By: #### L 700.6800, L100.0100, L500.2500 #### [facility] [address] [place], [address] ECRCL 86.69 ml/min Normal 50-250 [facility] Comment on above: Performed By: #### L 700.6800, L100.0100, L500.2500 #### [facility] [address] [place], [address] GAP 17 High 5-15 [facility] Comment on above: Performed By: #### L 700.6800, L100.0100, L500.2500 #### [facility] [address] [place], [address] GFR/1.73 sq M.predicted among non-blacks MDRD (S/P/Bld) [Vol rate/Area] 62 mL/min/{1.73_m2} Normal >60 [facility] Comment on above: Result Comment: mL/m in/1.73m2 CKD-EPI Creatinine Equation (2020) Performed By: #### L 700.6800, L100.0100, L500.2500 #### [facility] [address] [place], [address] Glucose [Mass/Vol] 203 mg/dL High 70-99 [facility] Comment on above: Performed By: #### L 700.6800, L100.0100, L500.2500 #### [facility] [address] [place], [address] Potassium [Moles/Vol] 4.0 mmol/L Normal 3.3-5.1 [facility] Comment on above: Performed By: #### L 700.6800, L100.0100, L500.2500 #### [facility] [address] [place], [address] Sodium [Moles/Vol] 135 mmol/L Normal 133-145 [facility] Comment on above: Performed By: #### L 700.6800, L100.0100, L500.2500 #### [facility] [address] [place], [address] Urea nitrogen [Mass/Vol] 19 mg/dL Normal 4-19 [facility] Comment on above: Performed By: #### L 700.6800, L100.0100, L500.2500 #### [facility] [address] [place], [address] Basophil percentageOrdered B y: Drew Aurelialori on 11-25-2024 Basophils/100 WBC (Bld) 0.3 % 0-1 [facility] Bedside Glucoseon 11-25-2024 FINGERSTICK GLU 139 mg/dL High 74-106 [facility] Comment on above: Result Comment: BULL SAMAYOA OF PATIENT CARE PER NURSING PROTOCOL Performed By: #### L 500.3400 #### [facility] [address] [place], [place], [address] Bilirubin Test strip Ql (U)O rdered By: Drew Hinson on 11-25-2024 Bilirubin Ql (U) 1 mg/dL High Negative [facility] Comment on above: COLOR OF URINE MAY A FFECT DIPSTICK RESULTS. Blood cultureOrdered By: Dwight Hinson on 11-25-2024 Bacteria identified Cx Nom (Bld) No growth in 5 days. [facility] Bacteria identified Cx Nom (Bld) No growth in 5 days. [facility] CBC W/Diff, Automatedon 11-09 PLT EST A Normal ADEQ [facility] Comment on above: Performed By: #### L 700.6800, L100.0100, L500.2500 #### [facility] [address] [place], [place], [address] Carbon dioxide, total [Moles /volume] in Central venous bloodOrdered By: Drew Hinson on 11-25-2024 CO2 [Moles/Vol] 21.3 mmol/L 21.0-32.0 [facility] Chloride assayOrdered By: Steven Hinson on 11-25-2024 Chloride [Moles/Vol] 97 mmol/L Low 98-108 [facility] Consultation - Surgicalon Consultation - Surgical [facility] Medical Records Department [address] [place] [address] Consultation - Surgical 11/25/242050 MR#: [id number] Acct: [id number] Name: GHISLAINE GIVENS Rep #: [id number] : 1990 34 From: Annalise Welch MD PCP: BROOKLYN Warren, GRIZZLYMAN-C Status:ADM IN Location: [facility] [id number] Assessment Plan Assessment/Plan (1) Fecal impaction: (2) Acute proctitis: PLAN: Plan Discussed with patient would recommend additional enema to help soften the bowel of stool in the rectum. Along with additional ones after that. Continue IV Zosyn Discussed with patient plan to DC with laxatives. Annalise Welch M.D. Pager: [phone] [facility] [address] [place] [address], Outpatient Pavilion, [address] [place] [address] Office: [phone] HPI Consult Data Date of Consult: 11/26/24 [...] and did have some results with it. [facility] Medical History (Updated 11/25/24 @ 15:05 by [...] 79.5 H, Lymph % (Auto) 11.4 L, Bibb (more content not included)... Normal [facility] Emergency Department Summary on 11-25-2024 Emergency Department Summary [facility] Medical Records Department [address] [place] [address] Emergency Department Summary 11/25/24 MR#: [id number] Acct: [id number] Name: GHISLAINE GIVENS Rep #: [id number] : 1990 34 From: Drew Hinson MD PCP: Amy Solorzano [facility], GRIZZLYMAN-C Status:REG ER Location: ED HPI HPI - [...] this diagnosis. No exacerbating or alleviating factors. [facility] Medical History Wears glasses History of MRSA [...] MDM N (more content not included)... Normal [facility] Eosinophil percentageOrdered By: Drew Hinson on 11-25-2024 Eosinophils/100 WBC (Bld) 0.1 % 0-5 [facility] Erythrocyte distribution wid th ratioOrdered By: Drew Hinson on 11-25-2024 Erythrocyte distribution width (RBC) [Ratio] 14.2 % 11.6-14.6 [facility] Erythrocyte distribution wid th standard deviationOrdered By: Drew Hinson on 11-25-2024 Erythrocyte distribution width (RBC) [Ratio] 41.1 fl 35.1-43.9 [facility] Glomerular filtration rate ( GFR) estimation/1.73 sq m using serum, plasma, or whole bOrdered By: Drew Hinson on 11-25-2024 GFR/1.73 sq M.predicted among non-blacks MDRD (S/P/Bld) [Vol rate/Area] 62 mL/min/{1.73_m2} >60 [facility] Comment on above: mL/min/1.73m2 CKD-EP I Creatinine Equation (2020) H AND P Exam - Hospitaliston 11-25-2024 H&P Exam - Hospitalist [facility] Medical Records Department [address] [place] [address] H P Exam - Hospitalist 11/25/24 1324 MR#: [id number] Acct: [id number] Name: GHISLAINE GIVENS Rep #: [id number] : 1990 34 From: Brenda Rao MD PCP: BROOKLYN Warren, GRIZZLYMAN-C Status:ADM IN Location: [facility] [id number] HPI - General General Date of Admission: [...] of severe constipation with likely overflow diarrhea. [facility] Medical History (Updated 11/25/24 @ 15:05 by [...] H 130/91 H 122/91 H Blood Pressure Kedar (more content not included)... Normal [facility] Hematocrit Auto (Bld) [Volum e fraction]Ordered By: Drew Hinson on 11-25-2024 Hematocrit (Bld) [Volume fraction] 42.3 % 37-47 [facility] Hemoglobin measurementOrdere d By: Drew Hinson on 11-25-2024 Hemoglobin (Bld) [Mass/Vol] 14.1 g/dL 12.0-15.0 [facility] Hyaline casts LM.LPF (Urine sed) [#/Area]Ordered By: Drew Hinson on 11-25-2024 Hyaline casts (Urine sed) [#/Area] 0 /[LPF] 0-5 [facility] Immature granulocytes/100 WB C Auto (Bld)Ordered By: Drew Hinson on 11-25-2024 Immature granulocytes/100 WBC (Bld) 0.700 % 0.0-0.9 [facility] Comment on above: IG% - Immature Granu locytes (promyelocytes, myelocytes and metamyelocytes) > 1% indicates that a LEFT SHIFT is Present. Ketones Test strip Ql (U)Ord ered By: Drew Hinson on 11-25-2024 Ketones Ql (U) 5 mg/dl High Negative [facility] Lactic Acidon 11-25-2024 Lactate [Moles/Vol] 1.5 mmol/L Normal 0.0-2.0 [facility] Comment on above: Order Comment: Y Performed By: #### M 200.1000, L503.6005 #### [facility] [address] [place] [address], [address] Lactic acid measurementOrder ed By: Drew Hinson on 11-25-2024 Lactate [Moles/Vol] 1.5 mmol/L 0.0-2.0 [facility] MCV (mean corpuscular volume ) determinationOrdered By: Drew Hinson on 11-25-2024 MCV (RBC) [Entitic vol] 81.2 fL 81-99 [facility] Mean corpuscular hemoglobin (MCH) determinationOrdered By: Drew Hinson on 11-25-2024 MCH (RBC) [Entitic mass] 27.1 pg 27.0-32.0 [facility] Mean corpuscular hemoglobin concentration (MCHC) determinationOrdered By: Drew Hinson on 11-25-2024 MCHC (RBC) [Mass/Vol] 33.3 g/dL 32-36 [facility] Mean platelet volume determi nationOrdered By: Drew Hinson on 11-25-2024 Platelet mean volume (Bld) [Entitic vol] 9.4 fL 6.2-12.0 [facility] Microscopic analysis of urin e for red blood cells (RBC)Ordered By: Drew Hinson on 11-25-2024 Microscopic analysis of urine for red blood cells (RBC) 0-5 SEEN /hpf 0-5 [facility] Monocyte percentageOrdered B y: Drew Hinson on 11-25-2024 Monocytes/100 WBC (Bld) 8.0 % 0-10 [facility] Mucus LM Ql (Urine sed)Order ed By: Drew Hinson on 11-25-2024 Mucus Ql (Urine sed) 0 SEEN /hpf [facility] Neutrophil percentageOrdered By: Drew Hinson on 11-25-2024 Neutrophils/100 WBC (Bld) 79.5 % High 47-70 [facility] Nitrite Test strip Ql (U)Ord ered By: Drew Hinson on 11-25-2024 Nitrite Ql (U) Negative Negative [facility] Nucleated red blood cell per centageOrdered By: Drew Hinson on 11-25-2024 Nucleated RBC/100 WBC (Bld) [Ratio] 0 % 0-5 [facility] Platelet countOrdered By: Steven Hinson on 11-25-2024 Platelets (Bld) [#/Vol] 400 10*3/uL 150-450 [facility] Platelet estimateOrdered By: Drew Hinson on 11-25-2024 Platelets LM Ql (Bld) A ADEQ [facility] Potassium measurement (mass/ volume)Ordered By: Drew Hinson on 11-25-2024 Potassium (Unsp spec) [Mass/Vol] 4.0 mmol/L 3.3-5.1 [facility] ,Serum,hCG Quali.on 11-25-2024 HCG, SERUM QUAL Negative Normal [facility] Comment on above: Performed By: #### L 700.6800, L100.0100, L500.2500 #### [facility] [address] [place], [place] [address] [place], [place], [address] Protein Test strip Ql (U)Ord ered By: Drew Vegacarole on 11-25-2024 Protein Ql (U) 30 mg/dl High Negative [facility] RBC Auto (Bld) [#/Vol]Ordere d By: Drew Hinson on 11-25-2024 RBC (Bld) [#/Vol] 5.21 10*6/uL 4.2-5.4 [facility] Serum beta-hCG test, qualita tiveOrdered By: Drew Hinson on 11-25-2024 Beta HCG ( test) Ql Negative [facility] Serum creatinine measurement (mass/volume)Ordered By: Drew Hinson on 11-25-2024 Creatinine [Mass/Vol] 1.20 mg/dL 0.70-1.20 [facility] Serum glucose measurement (m ass/volume)Ordered By: Drew Hinson on 11-25-2024 Glucose [Mass/Vol] 203 mg/dL High 70-99 [facility] Serum or plasma calcium hussein urement (mass/volume)Ordered By: Drew Hinson on 11-25-2024 Calcium [Mass/Vol] 9.6 mg/dL 7.6-11.0 [facility] Serum or plasma urea nitroge n measurement (mass/volume)Ordered By: Drew Hinson on 11-25-2024 Urea nitrogen [Mass/Vol] 19 mg/dL 4-19 [facility] Sodium levelOrdered By: Drew Hinson on 11-25-2024 Sodium [Moles/Vol] 135 mmol/L 133-145 [facility] Squamous epithelial cells de tection in urine sediment by light microscopyOrdered By: Drew Hinson on 11-25-2024 Epithelial cells.squamous LM Ql (Urine sed) 0-5 SEEN /hpf 5-10 [facility] Urinalysis, Completeon 11-25 CAST,HYALINE 0-5 SEEN Normal 0-5 [facility] Comment on above: Order Comment: CLEAN CATCH Performed By: #### L 500.2500, L100.0100 #### [facility] [address] [place], [place], [address] AMORPHOUS 2+ URATE Normal [facility] Comment on above: Order Comment: CLEAN CATCH Performed By: #### L 500.2500, L100.0100 #### [facility] [address] [place], [address] EPI,SQUAMOUS 0-5 SEEN Normal 5-10 [facility] Comment on above: Order Comment: CLEAN CATCH Performed By: #### L 500.2500, L100.0100 #### [facility] [address] [place], [address] RBC 0-5 SEEN Normal 0-5 [facility] Comment on above: Order Comment: CLEAN CATCH Performed By: #### L 500.2500, L100.0100 #### [facility] [address] [place], [address] WBC 0-5 SEEN Normal 0-5 [facility] Comment on above: Order Comment: CLEAN CATCH Performed By: #### L 500.2500, L100.0100 #### [facility] [address] [place], [address] BACTERIA 0 SEEN Normal None Seen [facility] Comment on above: Order Comment: CLEAN CATCH Performed By: #### L 500.2500, L100.0100 #### [facility] [address] [place], [address] Mucus Ql (Urine sed) 0 SEEN Normal [facility] Comment on above: Order Comment: CLEAN CATCH Performed By: #### L 500.2500, L100.0100 #### [facility] [address] [place], [address] Urine clarityOrdered By: Dwight Hinson on 11-25-2024 Clarity (U) Cloudy Clear [facility] Urine color determinationOrd ered By: Drew Hinson on 11-25-2024 Color (U) Yellow Yellow [facility] Urine glucose detectionOrder ed By: Drew Hinson on 11-25-2024 Glucose Ql (U) Normal mg/dl Normal [facility] Urine leukocyte esterase det ection by dipstickOrdered By: Drew Hinson on 11-25-2024 Leukocyte esterase Test strip Ql (U) Negative Negative [facility] Urine pHOrdered By: Drew castellanos on 11-25-2024 pH (U) 6.0 [pH] 5.0 - 8.0 [facility] Urine sediment bacteria coun t by microscopy (number/high power field)Ordered By: Drew Hinson on 11-25-2024 Bacteria LM.HPF (Urine sed) [#/Area] 0 /[HPF] None Seen [facility] Urine specific gravity measu rementOrdered By: Drew Hinson on 11-25-2024 Specific gravity (U) [Rel density] 1.025 1.002-1.030 [facility] Urine urobilinogen measureme ntOrdered By: Drew Hinson on 11-25-2024 Urobilinogen Ql (U) 1 mg/dl High Normal [facility] White blood cell (WBC) count Ordered By: Drew Hinson on 11-25-2024 WBC (Bld) [#/Vol] 27.0 10*3/uL High 4.4-11.0 [facility] White blood cell countOrdere d By: Drew Hinson on 11-25-2024 White blood cell count 0-5 SEEN /hpf 0-5 [facility] Arterial study reportOrdered By: Tony Dwyer on 10-25-2024 Noninvasive arteriosclerosis study report [facility] [address] [place] [id number] Lower Ext Art Exam w/o Exercis 10/25/24 0847 MR#: [id number] Acct: [id number] Name: GHISLAINE GIVENS Rep #:[id number] : 1990 34 From: Tony Dwyer MD Attending Dr: Dr. Abdirizak Forrest, DPPrisca Status: REG CLI Ordering Dr: Abdirizak Forrest DPPrisca Date: 10/25/24 Location: [facility] Sex: F C Admitted: Reason For Study [...] Saima De La Torre RVT 10/25/242211 Date _ Tony Dwyer MD CC: YESY Forrest; [facility] GRIZZLYMAN-C Amy Solorzano ~ Date Dictated: 10/25/24 0847 Date Transcribed: 10/25/242211 Family Development Extension Specialist: Signed [facility] Other Phone: Lower Ext Art Exam w/o Exerc rudy 10-25-2024 Lower Ext Art Exam w/o Exercis [facility] [place] [address] Lower Ext Art Exam w/o Exercis 10/25/24 0847 MR#: [id number] Acct: [id number] Name: GHISLAINE GIVENS Rep #: [id number] : 1990 34 From: Tony Dwyer MD Attending Dr: Dr. Abdirizak Forrest, YESY Status: RE G CLI Ordering Dr: Abdirizak Forrest DPM Date: 10/25/24 Location: [facility] Sex: F C Admitted: Reason For Study [...] Solorzano Performed By: Saima De La Torre, RVT 10/25/242211 Date Tony Dwyer MD CC: DPM Dr. Abdirizak Forrest; [facility] GRIZZLYMAN-C Amy Solorzano Date Dictated: 10/25/2447 Date Transcribed: 10/25/242211 Family Development Extension Specialist: Signed Normal [facility] Venous Duplex US - Tayo Extre mon 10-25-2024 Venous Duplex US - Tayo Extrem [facility] [address] [place] [address] Venous Duplex US - Tayo Extrem 10/25/24 0806 MR#: [id number] Acct: [id number] Name: GHISLAINE GIVENS Rep #: [id number] : 1990 34 From: Tony Dwyer MD [...] competent and measures 0.21 x 0.23 INCOMPETENT batch dumper noted 8 cm above medial cm. maleolus. [...] right proximal calf is incompetent. 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 Ordering Physician: Abdirizak Forrest Referring Physician: Amy Solorzano Performed By: Willinger, Saima, RVT 10/25/242200 Date Tony Dwyer MD CC: DPM Dr. Abdirizak Forrest; [facility] GRIZZLYMAN-C Amy Rashad Date Dictated: 10/25/24805 Date Transcribed: 10/25/242200 Family Development Extension Specialist: Signed Normal [facility] Venous duplex ultrasound rep ortOrdered By: Tony Dwyer on 10-25-2024 US Vein [facility] [address] [place] [address] Venous Duplex US - Tayo Extrem 10/25/24805 MR#: [id number] Acct: [id number] Name: GHISLAINE GIVENS Rep #:[id number] : 1990 34 From: Tony Dwyer MD Attending Dr: Dr. Abdirizak Forrest, DPPrisca Status: REG CLI Ordering Dr: Abdirizak Forrest [...] competent and measures 0.21 x 0.23 INCOMPETENT batch dumper noted 8 cm above medial cm. maleolus. [...] right proximal calf is incompetent. 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 Ordering Physician: Abdirizak Forrest Referring Physician: Amy Solorzano Performed By: Saima De La Torre RVT 10/25/24 6730 Date _ Tony Dwyer MD CC: DPM Dr. Abdirizak Forrest; [facility] GRIZZLYMAN-C Amykeiko Solorzano ~ Date Dictated: 10/25/24805 Date Transcribed: 10/25/242200 Family Development Extension Specialist: Signed [facility] Other Phone: Absolute lymphocyte countOrd ered By: [facility] Amy Solorzano on 10-17-2024 Lymphocytes Auto (Unsp spec) [#/Vol] 3.16 10*3/uL 0.83-4.51 [facility] Absolute neutrophil countOrd ered By: [facility] Amy Solorzano on 10-17-2024 Neutrophils (Bld) [#/Vol] 6.6 10*3/uL 2.0-7.7 [facility] Albumin DL <= 20 mg/L (U) [M ass/Vol]Ordered By: [facility] Amy Solorzano on 10-17-2024 Urine Random Microalbumin < 12.0 mg/L NO RANGE EST. [facility] Anion gap in Serum or Plasma Ordered By: [facility] Amy Solorzano on 10-17-2024 Anion gap [Moles/Vol] 14 mmol/L 5-15 [facility] Automated lymphocyte count a s percentage of total leukocytesOrdered By: [facility] Amy Solorzano on 10-17-2024 Lymphocytes/100 WBC Auto (Unsp spec) 29.7 % 19-41 [facility] BUN/creatinine ratioOrdered By: [facility] Amy Solorzano on 10-17-2024 Urea nitrogen/Creatinine [Mass ratio] 14.4 mg/mg 10-20 [facility] Basophil percentageOrdered B y: [facility] Amy Solorzano on 10-17-2024 Basophils/100 WBC (Bld) 0.4 % 0-1 [facility] Bilirubin, totalOrdered By: [facility] Amy Solorzano on 10-17-2024 Bilirubin [Mass/Vol] 0.21 mg/dL 0.00-1.30 [facility] CBC W/Diff, Automatedon Absolute Lymph 3.16 X10 3/uL Normal 0.83-4.51 [facility] Comment on above: Performed By: #### L 700.6800, L100.0100, L500.2500 #### [facility] [address] [place], [address] Absolute Neut 6.6 X10 3/uL Normal 2.0-7.7 [facility] Comment on above: Performed By: #### L 700.6800, L100.0100, L500.2500 #### [facility] [address] [place], [address] Basophils/100 WBC (Bld) 0.4 % Normal 0-1 [facility] Comment on above: Performed By: #### L 700.6800, L100.0100, L500.2500 #### [facility] [address] [place], [address] Eosinophils/100 WBC (Bld) 0.7 % Normal 0-5 [facility] Comment on above: Performed By: #### L 700.6800, L100.0100, L500.2500 #### [facility] [address] [place], [address] Erythrocyte distribution width (RBC) [Ratio] 14.1 % Normal 11.6-14.6 [facility] Comment on above: Performed By: #### L 700.6800, L100.0100, L500.2500 #### [facility] [address] [place], [address] Hematocrit (Bld) [Volume fraction] 39.5 % Normal 37-47 [facility] Comment on above: Performed By: #### L 700.6800, L100.0100, L500.2500 #### [facility] [address] [place], [address] Hemoglobin (Bld) [Mass/Vol] 12.8 g/dL Normal 12.0-15.0 [facility] Comment on above: Performed By: #### L 700.6800, L100.0100, L500.2500 #### [facility] [address] [place], [address] IG% 1.000 High 0.0-0.9 [facility] Comment on above: Result Comment: IG% - Immature Granulocytes (promyelocytes, myelocytes and metamyelocytes) > 1% indicates that a LEFT SHIFT is Present. Performed By: #### L 700.6800, L100.0100, L500.2500 #### [facility] [address] [place], [address] Lymphocytes/100 WBC (Bld) 29.7 % Normal 19-41 [facility] Comment on above: Performed By: #### L 700.6800, L100.0100, L500.2500 #### [facility] [address] [facility], [address] MCH (RBC) [Entitic mass] 26.6 pg Low 27.0-32.0 [facility] Comment on above: Performed By: #### L 700.6800, L100.0100, L500.2500 #### [facility] [address] [facility] [place], [address] MCHC (RBC) [Mass/Vol] 32.4 g/dL Normal 32-36 [facility] Comment on above: Performed By: #### L 700.6800, L100.0100, L500.2500 #### [facility] [address] [place], [address] MCV (RBC) [Entitic vol] 82.1 fL Normal 81-99 [facility] Comment on above: Performed By: #### L 700.6800, L100.0100, L500.2500 #### [facility] [address] [facility], [address] Monocytes/100 WBC (Bld) 6.0 % Normal 0-10 [facility] Comment on above: Performed By: #### L 700.6800, L100.0100, L500.2500 #### [facility] [address] [place], [address] Neutrophils/100 WBC (Bld) 62.2 % Normal 47-70 [facility] Comment on above: Performed By: #### L 700.6800, L100.0100, L500.2500 #### [facility] [address] [place], [address] Nucleated RBC (Bld) [#/Vol] 0 10*3/uL Normal 0-5 [facility] Comment on above: Performed By: #### L 700.6800, L100.0100, L500.2500 #### [facility] [address] [place], [address] Platelet mean volume (Bld) [Entitic vol] 9.7 fL Normal 6.2-12.0 [facility] Comment on above: Performed By: #### L 700.6800, L100.0100, L500.2500 #### [facility] [address] [place], [address] Platelets (Bld) [#/Vol] 332 10*3/uL Normal 150-450 [facility] Comment on above: Performed By: #### L 700.6800, L100.0100, L500.2500 #### [facility] [address] [place], [address] RBC (Bld) [#/Vol] 4.81 10*6/uL Normal 4.2-5.4 [facility] Comment on above: Performed By: #### L 700.6800, L100.0100, L500.2500 #### [facility] [address] [place], [address] RDW SD 41.9 fl Normal 35.1-43.9 [facility] Comment on above: Performed By: #### L 700.6800, L100.0100, L500.2500 #### [facility] [address] [place], [address] WBC (Bld) [#/Vol] 10.6 10*3/uL Normal 4.4-11.0 [facility] Comment on above: Performed By: #### L 700.6800, L100.0100, L500.2500 #### [facility] [address] [place], [address] Calculated very low density lipoprotein (VLDL) cholesterol measurementOrdered By: [facility] Amy Solorzano on 10-17-2024 Calculated very low density lipoprotein (VLDL) cholesterol measurement 57 mg/dL High 5-40 [facility] VLDL Cholesterol 57 mg/dL High 5-40 [facility] Carbon dioxide, total [Moles /volume] in Central venous bloodOrdered By: [facility] Amy Solorzano on 10-17-2024 CO2 [Moles/Vol] 21.8 mmol/L 21.0-32.0 [facility] Chloride assayOrdered By: [facility] Amy Solorzano on 10-17-2024 Chloride [Moles/Vol] 99 mmol/L 98-108 [facility] Comprehensive Metabolic Prof ilon 10-17-2024 Albumin [Mass/Vol] 3.7 g/dL Normal 3.5-5.0 [facility] Comment on above: Performed By: #### L 700.6800, L100.0100, L500.2500 #### [facility] [address] [place], [address] Albumin/Globulin [Mass ratio] 0.9 {ratio} Normal 0.9-2.4 [facility] Comment on above: Performed By: #### L 700.6800, L100.0100, L500.2500 #### [facility] [address] [place], [address] ALK PHOS 93 U/L Normal 35-104 [facility] Comment on above: Performed By: #### L 700.6800, L100.0100, L500.2500 #### [facility] [address] [place], [address] ALT [Catalytic activity/Vol] 12 U/L Normal <=34 [facility] Comment on above: Performed By: #### L 700.6800, L100.0100, L500.2500 #### [facility] [address] [place], [address] AST [Catalytic activity/Vol] 18 U/L Normal <=31 [facility] Comment on above: Performed By: #### L 700.6800, L100.0100, L500.2500 #### [facility] [address] [place], [address] Bilirubin [Mass/Vol] 0.21 mg/dL Normal 0.00-1.30 [facility] Comment on above: Performed By: #### L 700.6800, L100.0100, L500.2500 #### [facility] [address] [place], [address] BUN/CRE 14.4 RATIO Normal 10-20 [facility] Comment on above: Performed By: #### L 700.6800, L100.0100, L500.2500 #### [facility] [address] [place], [address] Calcium [Mass/Vol] 9.2 mg/dL Normal 7.6-11.0 [facility] Comment on above: Performed By: #### L 700.6800, L100.0100, L500.2500 #### [facility] [address] [place], [address] Chloride [Moles/Vol] 99 mmol/L Normal 98-108 [facility] Comment on above: Performed By: #### L 700.6800, L100.0100, L500.2500 #### [facility] [address] [place], [address] CO2 [Moles/Vol] 21.8 mmol/L Normal 21.0-32.0 [facility] Comment on above: Performed By: #### L 700.6800, L100.0100, L500.2500 #### [facility] [address] [place], [address] Creatinine [Mass/Vol] 0.84 mg/dL Normal 0.70-1.20 [facility] Comment on above: Performed By: #### L 700.6800, L100.0100, L500.2500 #### [facility] [address] [place], [address] GAP 14 Normal 5-15 [facility] Comment on above: Performed By: #### L 700.6800, L100.0100, L500.2500 #### [facility] [address] [place], [address] GFR/1.73 sq M.predicted among non-blacks MDRD (S/P/Bld) [Vol rate/Area] 95 mL/min/{1.73_m2} Normal >60 [facility] Comment on above: Result Comment: mL/m in/1.73m2 CKD-EPI Creatinine Equation (2020) Performed By: #### L 700.6800, L100.0100, L500.2500 #### [facility] [address] [place], [address] Globulin (S) [Mass/Vol] 3.9 g/dL Normal 2.2-4.2 [facility] Comment on above: Performed By: #### L 700.6800, L100.0100, L500.2500 #### [facility] [address] [place], [address] Glucose [Mass/Vol] 233 mg/dL High 70-99 [facility] Comment on above: Performed By: #### L 700.6800, L100.0100, L500.2500 #### [facility] [address] [place], [address] Potassium [Moles/Vol] 4.6 mmol/L Normal 3.3-5.1 [facility] Comment on above: Performed By: #### L 700.6800, L100.0100, L500.2500 #### [facility] [address] [place], [address] Sodium [Moles/Vol] 135 mmol/L Normal 133-145 [facility] Comment on above: Performed By: #### L 700.6800, L100.0100, L500.2500 #### [facility] [address] [place], [address] T PROT 7.5 g/dL Normal 5.9-8.4 [facility] Comment on above: Performed By: #### L 700.6800, L100.0100, L500.2500 #### [facility] [address] [place], [address] Urea nitrogen [Mass/Vol] 12 mg/dL Normal 4-19 [facility] Comment on above: Performed By: #### L 700.6800, L100.0100, L500.2500 #### [facility] [address] [place], [address] Eosinophil percentageOrdered By: [facility] Amy Solorzano on 10-17-2024 Eosinophils/100 WBC (Bld) 0.7 % 0-5 [facility] Erythrocyte distribution wid th (RBC) [Ratio]Ordered By: [facility] Amy Solorzano on 10-17-2024 Erythrocyte distribution width (RBC) [Entitic vol] 41.9 fL 35.1-43.9 [facility] Erythrocyte distribution wid th ratioOrdered By: [facility] Amy Solorzano on 10-17-2024 Erythrocyte distribution width (RBC) [Ratio] 14.1 % 11.6-14.6 [facility] Erythrocyte distribution wid th standard deviationOrdered By: [facility] Amy Solorzano on 10-17-2024 Erythrocyte distribution width (RBC) [Ratio] 41.9 fl 35.1-43.9 [facility] GFR/1.73 sq M.predicted taryn g non-blacks MDRD (S/P/Bld) [Vol rate/Area]Ordered By: [facility] Amy Solorzano on 10-17-2024 Estimated GFR (MDRD) Non-Af Amer 95 >60 [facility] Comment on above: mL/min/1.73m2 CKD-EP I Creatinine Equation (2020) Glomerular filtration rate ( GFR) estimation/1.73 sq m using serum, plasma, or whole bOrdered By: [facility] Amy Solorzano on 10-17-2024 GFR/1.73 sq M.predicted among non-blacks MDRD (S/P/Bld) [Vol rate/Area] 95 mL/min/{1.73_m2} >60 [facility] Comment on above: mL/min/1.73m2 CKD-EP I Creatinine Equation (2020) Hematocrit Auto (Bld) [Volum e fraction]Ordered By: [facility] Amy Solorzano on 10-17-2024 Hematocrit (Bld) [Volume fraction] 39.5 % 37-47 [facility] Hemoglobin measurementOrdere d By: [facility] Amy Solorzano on 10-17-2024 Hemoglobin (Bld) [Mass/Vol] 12.8 g/dL 12.0-15.0 [facility] Immature granulocytes/100 WB C Auto (Bld)Ordered By: [facility] Amy Solorzano on 10-17-2024 Immature granulocytes/100 WBC (Bld) 1.000 % High 0.0-0.9 [facility] Comment on above: IG% - Immature Granu locytes (promyelocytes, myelocytes and metamyelocytes) > 1% indicates that a LEFT SHIFT is Present. LDL calc ser/plasOrdered By: [facility] Amy Solorzano on 10-17-2024 Cholesterol in LDL [Mass/Vol] 70 mg/dL [facility] Comment on above: Sffzytiuhq=969-739 m g/dL & Higher Rxqw=865 mg/dL or greater LDL Cholesterol, Calculated 70 mg/dL [facility] Comment on above: Vfxckflqlw=399-368 m g/dL & Higher Xjbu=586 mg/dL or greater Laboratory - Chemistry and C hemistry - challengeOrdered By: [facility] Amy Solorzano on 10-17-2024 AST [Catalytic activity/Vol] 18 U/L <32 [facility] Lipid Profileon 10-17-2024 CHOL:HDL 4.44 Normal [facility] Comment on above: Performed By: #### L 700.6800, L100.0100, L500.2500 #### [facility] [address] [place], [address] Cholesterol [Mass/Vol] 164 mg/dL Normal <=200 [facility] Comment on above: Result Comment: Chol esterol level, Desirable <200 mg/dL Borderline high cholesterol 200-239 mg/dL High cholesterol >=240 mg/dL Recommendations of the NCEP Adult Treatment Panel for the following risk-cutoff thresholds for the [place] population. Performed By: #### L 700.6800, L100.0100, L500.2500 #### [facility] [address] [place], [address] Cholesterol in HDL [Mass/Vol] 37 mg/dL Low [facility] Comment on above: Result Comment: Lupe onal Cholesterol Education Program (NCEP) guidelines: <40 mg/dL: Low HDL-cholesterol (major risk factor for CHD) >= 60 mg/dL: High HDL-cholesterol (negative risk factor for CHD) HDL-cholesterol is affected by a number of factors, e.g. smoking, exercise, hormones, sex and age. Performed By: #### L 700.6800, L100.0100, L500.2500 #### [facility] [address] [place], [address] Cholesterol in LDL [Mass/Vol] 70 mg/dL Normal [facility] Comment on above: Result Comment: Bord vcqgxp=943-601 mg/dL Higher Prey=648 mg/dL or greater Performed By: #### L 700.6800, L100.0100, L500.2500 #### [facility] [address] [place], [address] Cholesterol in VLDL [Mass/Vol] 57 mg/dL High 5-40 [facility] Comment on above: Performed By: #### L 700.6800, L100.0100, L500.2500 #### [facility] [address] [facility] [place], [address] Triglyceride [Mass/Vol] 287 mg/dL High [facility] Comment on above: Result Comment: The drugs N-Acetylcysteine and Metamizole may falsely depress this assay. Normal range: <150 mg/dL Borderline High: 150-199 mg/dL High: 200-499 mg/dL Very High: >500 mg/dL Performed By: #### L 700.6800, L100.0100, L500.2500 #### [facility] [address] [place], [address] Lymphocytes Auto (Unsp spec) [#/Vol]Ordered By: [facility] Amy Solorzano on 10-17-2024 Lymphocytes (Bld) [#/Vol] 3.16 10*3/uL 0.83-4.51 [facility] Lymphocytes/100 WBC Auto (Un sp spec)Ordered By: [facility] Amy Solorzano on 10-17-2024 Lymphocytes/100 WBC (Bld) 29.7 % 19-41 [facility] MCV (mean corpuscular volume ) determinationOrdered By: [facility] Amy Solorzano on 10-17-2024 MCV (RBC) [Entitic vol] 82.1 fL 81-99 [facility] Mean corpuscular hemoglobin (MCH) determinationOrdered By: [facility] Amy Solorzano on 10-17-2024 MCH (RBC) [Entitic mass] 26.6 pg Low 27.0-32.0 [facility] Mean corpuscular hemoglobin concentration (MCHC) determinationOrdered By: [facility] Amy Solorzano on 10-17-2024 MCHC (RBC) [Mass/Vol] 32.4 g/dL 32-36 [facility] Mean platelet volume determi nationOrdered By: [facility] Amy Solorzano on 10-17-2024 Platelet mean volume (Bld) [Entitic vol] 9.7 fL 6.2-12.0 [facility] Microalbumin,Random Urineon 10-17-2024 MICROALBUMIN,UR < 12.0 Normal NO RANGE EST. [facility] Comment on above: Performed By: #### L 700.6800, L100.0100, L500.2500 #### [facility] [address] [place], [address] Monocyte percentageOrdered B y: [facility] Amy Solorzano on 10-17-2024 Monocytes/100 WBC (Bld) 6.0 % 0-10 [facility] Neutrophil percentageOrdered By: [facility] 10-17-2024 Neutrophils/100 WBC (Bld) 62.2 % 47-70 [facility] Nucleated red blood cell per centageOrdered By: [facility] on 10-17-2024 Nucleated RBC/100 WBC (Bld) [Ratio] 0 % 0-5 [facility] Platelet countOrdered By: [facility] Amy Solorzano on 10-17-2024 Platelets (Bld) [#/Vol] 332 10*3/uL 150-450 [facility] Potassium (Unsp spec) [Mass/ Vol]Ordered By: [facility] 10-17-2024 Potassium [Moles/Vol] 4.6 mmol/L 3.3-5.1 [facility] Potassium measurement (mass/ volume)Ordered By: [facility] on 10-17-2024 Potassium (Unsp spec) [Mass/Vol] 4.6 mmol/L 3.3-5.1 [facility] RBC Auto (Bld) [#/Vol]Ordere d By: [facility] 10-[facility]-2024 RBC (Bld) [#/Vol] 4.81 10*6/uL 4.2-5.4 [facility] Screening total cholesterol/ high density lipoprotein (HDL) cholesterol ratioOrdered By: [facility] Amy Solorzano on 10-17-2024 Cholesterol.total/Breonna sterol in HDL [Mass ratio] 4.44 {ratio} [facility] Serum creatinine measurement (mass/volume)Ordered By: [facility] Amy Solorzano on 10-17-2024 Creatinine [Mass/Vol] 0.84 mg/dL 0.70-1.20 [facility] Serum globulin measurementOr dered By: [facility] Amykeiko Solorzano on 10-17-2024 Globulin (S) [Mass/Vol] 3.9 g/dL 2.2-4.2 [facility] Serum glucose measurement (m ass/volume)Ordered By: [facility] Amy Solorzano on 10-17-2024 Glucose [Mass/Vol] 233 mg/dL High 70-99 [facility] Serum or plasma alanine jordan otransferase (ALT) measurementOrdered By: [facility] Amy Solorzano on 10-17-2024 ALT [Catalytic activity/Vol] 12 U/L <35 [facility] Serum or plasma albumin hussein urement (mass/volume)Ordered By: [facility] Amy Solorzano on 10-17-2024 Albumin [Mass/Vol] 3.7 g/dL 3.5-5.0 [facility] Serum or plasma albumin/glob ulin mass ratioOrdered By: [facility] Amy Solorzano on 10-17-2024 Albumin/Globulin [Mass ratio] 0.9 {ratio} 0.9-2.4 [facility] Serum or plasma alkaline bradley sphatase measurementOrdered By: [facility] Amy Solorzano on 10-17-2024 ALP [Catalytic activity/Vol] 93 U/L 35-104 [facility] Serum or plasma calcium hussein urement (mass/volume)Ordered By: [facility] Amy Solorzano on 10-17-2024 Calcium [Mass/Vol] 9.2 mg/dL 7.6-11.0 [facility] Serum or plasma cholesterol in HDL measurement (mass/volume)Ordered By: [facility] Amy Solorzano on 10-17-2024 Cholesterol in HDL [Mass/Vol] 37 mg/dL Low >40 [facility] Comment on above: National Cholesterol Education Program (NCEP) guidelines:<40 mg/dL: Low HDL-cholesterol (major risk factor for CHD)>= 60 mg/dL: High HDL-cholesterol (negative risk factor for CHD)HDL-cholesterol is affected by a number of factors, e.g. smoking, exercise, hormones, sex and age. Serum or plasma cholesterol measurement (mass/volume)Ordered By: [facility] Amy Solorzano on 10-17-2024 Cholesterol [Mass/Vol] 164 mg/dL <201 [facility] Comment on above: Cholesterol level, D esirable <200 mg/dLBorderline high cholesterol 200-239 mg/dLHigh cholesterol >=240 mg/dLRecommendations of the NCEP Adult Treatment Panel for the following risk-cutoff thresholds for the [place] population. Serum or plasma urea nitroge n measurement (mass/volume)Ordered By: [facility] Amy Solorzano on 10-17-2024 Urea nitrogen [Mass/Vol] 12 mg/dL 4-19 [facility] Sodium levelOrdered By: [facility] Amy Solorzano on 10-17-2024 Sodium [Moles/Vol] 135 mmol/L 133-145 [facility] TSH DL <= 0.005 mIU/L QnOrde red By: [facility] Amy Solorzano on 10-17-2024 Thyroid Stimulating Hormone (TSH) 1.180 uIU/mL 0.300-4.200 [facility] TSH Qn 1.180 uIU/mL 0.300-4.200 [facility] Thyroid Stim Hormone (TSH)on 10-17-2024 TSH 1.180 uIU/mL Normal 0.300-4.200 [facility] Comment on above: Performed By: #### L 700.6800, L100.0100, L500.2500 #### [facility] [address] [place], [address] Total proteinOrdered By: [facility] Amy Solorzano on 10-17-2024 Protein [Mass/Vol] 7.5 g/dL 5.9-8.4 [facility] Triglycerides measurementOrd ered By: [facility] Amy Solorzano on 10-17-2024 Triglyceride [Mass/Vol] 287 mg/dL High <199 [facility] Comment on above: The drugs N-Acetylcy steine and Metamizole may falsely depress this assay. Normal range: <150 mg/dLBorderline High: 150-199 mg/dLHigh: 200-499 mg/dLVery High: >500 mg/dL Urine albumin measurement wi th detection limit of 20 mg/L or less (mass/volume)Ordered By: [facility] Amy Solorzano on 10-17-2024 Albumin DL <= 20 mg/L (U) [Mass/Vol] < 12.0 mg/L NO RANGE EST. [facility] Vitamin D, 25-hydroxyOrdered By: [facility] Amy Solorzano on 10-17-2024 Vitamin D 25-Hydroxy 10.7 ng/mL Low 30-100 [facility] Comment on above: Vitamin D StatusDefi ciency: <20 ng/mL (50nmol/L)Insufficiency: 20-30 ng/mL (50-75 nmol/L)Sufficiency: 30-100 ng/mL (75-250 nmol/L)Toxicity: >100 ng/mL (>250 nmol/L) Vitamin D,25 Hydroxyon 10-17 Vitamin D 25-OH 10.7 ng/mL Low 30-100 [facility] Comment on above: Result Comment: Claudia min D Status Deficiency: <20 ng/mL (50nmol/L) Insufficiency: 20-30 ng/mL (50-75 nmol/L) Sufficiency: 30-100 ng/mL (75-250 nmol/L) Toxicity: >100 ng/mL (>250 nmol/L) Performed By: #### L 700.6800, L100.0100, L500.2500 #### [facility] [place], [address] White blood cell (WBC) count Ordered By: [facility] Amy Solorzano on 10-17-2024 WBC (Bld) [#/Vol] 10.6 10*3/uL 4.4-11.0 [facility] CNOVon 07-03-2024 CNOV Office Visit (UCWSTR ) GHISLAINE GIVENS ([id number]) 1990 F [facility] Date Time Provider Department 07/03/24 1:00 PM [facility] During your visit today, we recorded the following information about you: Temperature Pulse Respiration Blood pressure 97 degrees 104/minute 16/minute 122/90 Weight Last Period 115.9 kg 06/20/24 Irais Hanna PA 07/03/2024 1:13 PM Signed This note was created using [employer]. Subjective Ghislaine Givens is a 34 year [...] 1 disorder (HCC) 2007 Depression Diabetes mellitus ([facility]) Elevated BP 04/28/2013 Insomnia PAST SURGICAL HISTORY [...] a diabeti (more content not included)... Normal [facility] XR CHEST 2V FRONTAL/LATon XR CHEST [...] Low lung volumes. No acute radiographic abnormality. Family Development Extension Specialist: OLGA Transcribe Date/Time: Jul 03 2024 1:07P Dictated by : THANIA ROSS DO This examination was interpreted and the report reviewed and electronically signed by: THANIA ROSS DO on Jul 03 2024 1:08PM EST [id number] Normal [facility] XR Chest PA and Lateralon IMPRESSION: Low lung volumes. No acute radiographic abnormality. Family Development Extension Specialist: OLGA Transcribe Date/Time: Jul 03 2024 1:07P [...] soft tissues: Unremarkable. DIVISION OF RADIOLOGY Provider, [facility] - 07/03/2024 * * *Final Report* [...] Low lung volumes. No acute radiographic abnormality. Family Development Extension Specialist: PSCB Transcribe Date/Time: Jul 03 2024 1:07P Dictated by : THANIA ROSS DO This examination was interpreted and the report reviewed and electronically signed by: THANIA ROSS DO on Jul 03 2024 1:08PM [facility] Radiology Study observation (narrative) Melissa gupta [facility] XR Chest PA and LateralOrder ed By: [facility] Provider on 07-03-2024 [facility] CNOVon 06-26-2024 CNOV Office Visit (UCWSTR ) GHISLAINE GIVENS ([id number]) 1990 F [facility] Date Time Provider Department 06/26/24 10:30 AM FRANTZ AREVALO [facility] During your visit today, we recorded the following information about you: Temperature Pulse Respiration Blood pressure 97.4 degrees 117/minute 18/minute 122/78 Weight 115.7 kg Frantz Arevalo PA-C 06/26/2024 11:03 AM Signed This note was created using [employer]. Subjective Ghislaine Givens is a 34 year [...] powder T (more content not included)... Normal [facility] CBC W/Diff, Automatedon 04-11 Absolute Lymph 4.36 X10 3/uL Normal 0.83-4.51 [facility] Comment on above: Performed By: #### L 500.2500, L100.0100 #### [facility] [address] [place], [address] Absolute Neut 7.1 X10 3/uL Normal 2.0-7.7 [facility] Comment on above: Performed By: #### L 500.2500, L100.0100 #### [facility] [address] [place], [address] Basophils/100 WBC (Bld) 0.6 % Normal 0-1 [facility] Comment on above: Performed By: #### L 500.2500, L100.0100 #### [facility] [address] [place], [address] Eosinophils/100 WBC (Bld) 1.3 % Normal 0-5 [facility] Comment on above: Performed By: #### L 500.2500, L100.0100 #### [facility] [address] [place], [address] Erythrocyte distribution width (RBC) [Ratio] 13.6 % Normal 11.6-14.6 [facility] Comment on above: Performed By: #### L 500.2500, L100.0100 #### [facility] [address] [place], [address] Hematocrit (Bld) [Volume fraction] 41.6 % Normal 37-47 [facility] Comment on above: Performed By: #### L 500.2500, L100.0100 #### [facility] [address] [place], [address] Hemoglobin (Bld) [Mass/Vol] 13.1 g/dL Normal 12.0-15.0 [facility] Comment on above: Performed By: #### L 500.2500, L100.0100 #### [facility] [address] [place], [address] IG% 1.300 High 0.0-0.9 [facility] Comment on above: Result Comment: IG% - Immature Granulocytes (promyelocytes, myelocytes and metamyelocytes) > 1% indicates that a LEFT SHIFT is Present. Performed By: #### L 500.2500, L100.0100 #### [facility] [address] [place], [address] Lymphocytes/100 WBC (Bld) 34.7 % Normal 19-41 [facility] Comment on above: Performed By: #### L 500.2500, L100.0100 #### [facility] [address] [place], [address] MCH (RBC) [Entitic mass] 26.3 pg Low 27.0-32.0 [facility] Comment on above: Performed By: #### L 500.2500, L100.0100 #### [facility] [address] [place], [address] MCHC (RBC) [Mass/Vol] 31.5 g/dL Low 32-36 [facility] Comment on above: Performed By: #### L 500.2500, L100.0100 #### [facility] [address] [place], [address] MCV (RBC) [Entitic vol] 83.5 fL Normal 81-99 [facility] Comment on above: Performed By: #### L 500.2500, L100.0100 #### [facility] [address] [place], [address] Monocytes/100 WBC (Bld) 5.4 % Normal 0-10 [facility] Comment on above: Performed By: #### L 500.2500, L100.0100 #### [facility] [address] [place], [address] Neutrophils/100 WBC (Bld) 56.7 % Normal 47-70 [facility] Comment on above: Performed By: #### L 500.2500, L100.0100 #### [facility] [address] [place], [address] Nucleated RBC (Bld) [#/Vol] 0 10*3/uL Normal 0-5 [facility] Comment on above: Performed By: #### L 500.2500, L100.0100 #### [facility] [address] [place], [address] Platelet mean volume (Bld) [Entitic vol] 9.4 fL Normal 6.2-12.0 [facility] Comment on above: Performed By: #### L 500.2500, L100.0100 #### [facility] [address] [place], [address] Platelets (Bld) [#/Vol] 368 10*3/uL Normal 150-450 [facility] Comment on above: Performed By: #### L 500.2500, L100.0100 #### [facility] [address] [place], [address] RBC (Bld) [#/Vol] 4.98 10*6/uL Normal 4.2-5.4 [facility] Comment on above: Performed By: #### L 500.2500, L100.0100 #### [facility] [address] [place], [address] RDW SD 41.3 fl Normal 35.1-43.9 [facility] Comment on above: Performed By: #### L 500.2500, L100.0100 #### [facility] [address] [place], [address] WBC (Bld) [#/Vol] 12.6 10*3/uL High 4.4-11.0 [facility] Comment on above: Performed By: #### L 500.2500, L100.0100 #### [facility] [address] [place], [address] Comprehensive Metabolic Prof [facility] 04-25-2024 Albumin [Mass/Vol] 3.3 g/dL Normal 3.2-5.0 [facility] Comment on above: Performed By: #### L 500.2500, L100.0100 #### [facility] [address] [place], [address] Albumin/Globulin [Mass ratio] 0.6 {ratio} Low 0.9-2.4 [facility] Comment on above: Performed By: #### L 500.2500, L100.0100 #### [facility] [address] [place], [address] ALK P 89 U/L Normal 45-117 [facility] Comment on above: Performed By: #### L 500.2500, L100.0100 #### [facility] [address] [place], [address] ALT [Catalytic activity/Vol] 24 U/L Normal 13-56 [facility] Comment on above: Performed By: #### L 500.2500, L100.0100 #### [facility] [address] [place], [address] AST [Catalytic activity/Vol] 9 U/L Low 15-37 [facility] Comment on above: Performed By: #### L 500.2500, L100.0100 #### [facility] [address] [place], [address] Bilirubin [Mass/Vol] 0.30 mg/dL Normal 0.20-1.00 [facility] Comment on above: Result Comment: For patients on eltrombopag therapy, use of Dimension [place] TBIL is not recommended. Performed By: #### L 500.2500, L100.0100 #### [facility] [address] [place], [address] BUN/CRE 13.5 RATIO Normal 10-20 [facility] Comment on above: Performed By: #### L 500.2500, L100.0100 #### [facility] [address] [place], [address] CA,Total 9.1 mg/dL Normal 8.5-10.1 [facility] Comment on above: Performed By: #### L 500.2500, L100.0100 #### [facility] [address] [place], [address] Chloride [Moles/Vol] 108 mmol/L High 98-107 [facility] Comment on above: Performed By: #### L 500.2500, L100.0100 #### [facility] [address] [place], [address] CO2 [Moles/Vol] 23.0 mmol/L Normal 21.0-32.0 [facility] Comment on above: Performed By: #### L 500.2500, L100.0100 #### [facility] [address] [place], [address] Creatinine [Mass/Vol] 0.89 mg/dL Normal 0.55-1.02 [facility] Comment on above: Result Comment: The validity of the calculated GFR GFRAA in patients over 70 years has not been determined. Clinical correlation is essential. Performed By: #### L 500.2500, L100.0100 #### [facility] [address] [place], [address] EST GFR - AA 95 mL/min Normal >60 [facility] Comment on above: Result Comment: Afri can Pakistani GFR Calc Performed By: #### L 500.2500, L100.0100 #### [facility] [address] [place], [address] GAP 7 Normal 5-15 [facility] Comment on above: Performed By: #### L 500.2500, L100.0100 #### [facility] [address] [place], [address] GFR/1.73 sq M.predicted among non-blacks MDRD (S/P/Bld) [Vol rate/Area] 78 mL/min/{1.73_m2} Normal >60 [facility] Comment on above: Result Comment: Non- GFR Calc Performed By: #### L 500.2500, L100.0100 #### [facility] [address] [place], [address] Globulin (S) [Mass/Vol] 5.2 g/dL High 2.2-4.2 [facility] Comment on above: Performed By: #### L 500.2500, L100.0100 #### [facility] [address] [place], [address] Glucose [Mass/Vol] 177 mg/dL High 74-106 [facility] Comment on above: Result Comment: Fast ing Glucose result greater than or equal to 126 mg/dL suggests DIABETES MELLITUS per A.D.A. criteria. Performed By: #### L 500.2500, L100.0100 #### [facility] [address] [place], [address] Potassium [Moles/Vol] 4.2 mmol/L Normal 3.5-5.1 [facility] Comment on above: Performed By: #### L 500.2500, L100.0100 #### [facility] [address] [place], [address] Sodium [Moles/Vol] 137 mmol/L Normal 136-145 [facility] Comment on above: Performed By: #### L 500.2500, L100.0100 #### [facility] [address] [place], [address] T PROT 8.5 g/dL High 6.4-8.2 [facility] Comment on above: Performed By: #### L 500.2500, L100.0100 #### [facility] [address] [place], [address] Urea nitrogen [Mass/Vol] 12 mg/dL Normal 7-18 [facility] Comment on above: Performed By: #### L 500.2500, L100.0100 #### [facility] [address] [place], [address] Lipid Profileon 04-25-2024 Cholesterol [Mass/Vol] 209 mg/dL High 200 [facility] Comment on above: Result Comment: <200 mg/dL Desirable 200-240 mg/dL Borderline >240 mg/dL High Risk Performed By: #### L 500.2500, L100.0100 #### [facility] [address] [place], [address] Cholesterol in HDL [Mass/Vol] 37 mg/dL Low [facility] Comment on above: Result Comment: The drugs N-Acetylcysteine and Metamizole may falsely depress this assay. Reference Range HDL <40 mg/dL Low HDL Cholesterol HDL >or= 60 mg/dL High HDL Cholesterol Performed By: #### L 500.2500, L100.0100 #### [facility] [address] [place], [address] Cholesterol in LDL [Mass/Vol] 127 mg/dL Normal 0-130 [facility] Comment on above: Performed By: #### L 500.2500, L100.0100 #### [facility] [address] [place], [address] Cholesterol in VLDL [Mass/Vol] 45 mg/dL High 5-40 [facility] Comment on above: Performed By: #### L 500.2500, L100.0100 #### [facility] [address] [place], [address] Triglyceride [Mass/Vol] 227 mg/dL High [facility] Comment on above: Result Comment: The drugs N-Acetylcysteine and Metamizole may falsely depress this assay. Serum Triglycerides Reference Interval Normal <150 mg/dL Borderline high 150 - 199 mg/dL High 200 - 499 mg/dL Very High > or = 500 mg/dL Performed By: #### L 500.2500, L100.0100 #### [facility] [address] [place], [address] Microalbumin,Random Urineon 04-25-2024 MICROALBUMIN,UR 147.0 mg/L Normal NO RANGE EST. [facility] Comment on above: Performed By: #### L 500.2500, L100.0100 #### [facility] [address] [place], [address] Thyroid Stim Hormone (TSH)on 04-25-2024 TSH 0.825 uIU/mL Normal 0.358-3.740 [facility] Comment on above: Performed By: #### L 500.2500, L100.0100 #### [facility] [address] [place], [address] Fungus cultureOrdered By: Neva Forrest on 07-23-2023 Fungus identified Cx Nom (Unsp spec) [facility] Fungus stainOrdered By: Jonas Forrest on 07-23-2023 Fungus identified Fungus stain Nom (Unsp spec) [facility] Glucose Glucometer (BldC) [M ass/Vol]Ordered By: Abdirizak Forrest on 07-23-2023 Glucose [Mass/Vol] 204 mg/dL 74-106 [facility] Comment on above: MANAGEMENT OF PATIEN T CARE PER NURSING PROTOCOL Laboratory - Chemistry and C hemistry - challengeOrdered By: Abdirahman Morton on 07-23-2023 HCG ( test) Ql (U) Negative [facility] Comment on above: Very dilute urine sp ecimens, as indicated by a low specificgravity, may not contain insurance follow up representative levels of hCG. If is still suspected, a first morning urinespecimen should be collected 48 hours later and tested. No Panel InformationOrdered By: Abdirahman Morton on 07-23-2023 Negative [facility] - Chemistry and C hemistry - challengeOrdered By: Abdirahman Morton on 07-16-2023 Magnesium [Mass/Vol] 2.0 mg/dL 1.6-2.6 [facility] No Panel InformationOrdered By: Abdirahman Morton on 07-16-2023 2.0 mg/dL 1.6-2.6 [facility] 25(OH)D3 SerPl-mCncon 2023 25-hydroxyvitamin D3 [Mass/Vol] 9.5 ng/mL Low 31.0-80.0 [facility] Comment on above: Order Comment: Speci men Type: BLOOD SPECIMEN Ordering Facility: [facility] Address: [facility] [facility], [place] [address] Result Comment: Clas sification of 25 [place] Vitamin D status: Deficiency/Insufficiency: < or = 30 ng/ml. Sufficiency/Optimal Levels: 31-80 ng/mL Toxicity: > 100 ng/mL. Test performed by chemiluminescent immunoassay. Performed By: #### 1 989-3 #### [facility] CLIA [id number] [address] [place] [address] [place] CBC panel Auto (Bld)on 07-14 Erythrocyte distribution width (RBC) [Ratio] 13.2 % Normal 11.5-15.0 [facility] Comment on above: Order Comment: Speci men Type: BLOOD SPECIMEN Ordering Facility: [facility] Address: [address] [place] [address] Performed By: #### 5 8410-2 #### [facility] CLIA [id number] [address] [place] [address] [place] Hematocrit (Bld) [Volume fraction] 41.9 % Normal 36.0-46.0 [facility] Comment on above: Order Comment: Speci men Type: BLOOD SPECIMEN Ordering Facility: [facility] Address: [address] [place] [address] Performed By: #### 5 8410-2 #### [facility] [place] [id number] [address] [place] [address] [place] Hemoglobin (Bld) [Mass/Vol] 12.8 g/dL Normal 11.5-15.5 [facility] Comment on above: Order Comment: Speci men Type: BLOOD SPECIMEN Ordering Facility: [facility] Address: [address] [place] [address] Performed By: #### 5 8410-2 #### [facility] [place] [id number] [address] [place] [address] [place] MCH (RBC) [Entitic mass] 26.1 pg Normal 26.0-34.0 [facility] Comment on above: Order Comment: Speci men Type: BLOOD SPECIMEN Ordering Facility: [facility] Address: [address] [place] [address] Performed By: #### 5 8410-2 #### [facility] [place] [id number] [address] [place] [address] [place] MCHC (RBC) [Mass/Vol] 30.5 g/dL Normal 30.5-36.[address] [facility] Comment on above: Order Comment: Speci men Type: BLOOD SPECIMEN Ordering Facility: [facility] Address: [address] [place] [address] Performed By: #### 5 8410-2 #### [facility] CLIA [id number] [address] [place] [address] [place] MCV (RBC) [Entitic vol] 85.3 fL Normal 80.0-100.0 [facility] Comment on above: Order Comment: Speci men Type: BLOOD SPECIMEN Ordering Facility: [facility] Address: [address] [place] [address] Performed By: #### 5 8410-2 #### [facility] CLIA [id number] [address] [place] [address] [place] Nucleated RBC (Bld) [#/Vol] 10*3/uL Normal <0.01 [facility] Comment on above: Order Comment: Speci men Type: BLOOD SPECIMEN Ordering Facility: [facility] Address: [address] [place] [address] Performed By: #### 5 8410-2 #### [facility] CLIA [id number] [address] [place] [address] [place] Platelet mean volume (Bld) [Entitic vol] 10.0 fL Normal 9.0-12.7 [facility] Comment on above: Order Comment: Speci men Type: BLOOD SPECIMEN Ordering Facility: [facility] Address: [address] [place] [address] Performed By: #### 5 8410-2 #### [facility] CLIA [id number] [address] [place] [address] [place] Platelets (Bld) [#/Vol] 417 10*3/uL High 150-400 [facility] Comment on above: Order Comment: Speci men Type: BLOOD SPECIMEN Ordering Facility: [facility] Address: [address] [place] [address], [place] [address] Performed By: #### 5 8410-2 #### [facility] CLIA [id number] [address] [place] [address] [place] RBC (Bld) [#/Vol] 4.91 10*6/uL Normal 3.90-5.20 [facility] Comment on above: Order Comment: Speci men Type: BLOOD SPECIMEN Ordering Facility: [facility] Address: [address] [place] [address], [place] [address] Performed By: #### 5 8410-2 #### [facility] CLIA [id number] [address] [place] [address] [place] WBC (Bld) [#/Vol] 7.59 10*3/uL Normal 3.70-11.00 [facility] Comment on above: Order Comment: Speci men Type: BLOOD SPECIMEN Ordering Facility: [facility] Address: [address] [place] [address], [place] [address] Performed By: #### 5 8410-2 #### [facility] CLIA [id number] [address] [place] [address] [place] Comprehensive metabolic 2000 panelon 07-14-2023 Albumin [Mass/Vol] 4.0 g/dL Normal 3.9-4.9 [facility] Comment on above: Order Comment: Speci men Type: BLOOD SPECIMEN Ordering Facility: [facility] Address: [address] [place] [address] Performed By: #### 3 016-3, 70472-8 #### [facility] CLIA [id number] [address] [place] [address] [place] ALP [Catalytic activity/Vol] 106 U/L Normal 34-123 [facility] Comment on above: Order Comment: Speci men Type: BLOOD SPECIMEN Ordering Facility: [facility] Address: [address], [place] [address] Performed By: #### 3 016-3, 66749-7 #### [facility] CLIA [id number] [address] [place] [address] [place] ALT [Catalytic activity/Vol] 11 U/L Normal 7-38 [facility] Comment on above: Order Comment: Speci men Type: BLOOD SPECIMEN Ordering Facility: [facility] Address: [facility], [place] [address] Performed By: #### 3 -3, #### [facility] CLIA [id number] [address] [place] [address] [place] Anion gap [Moles/Vol] 14 mmol/L Normal 9-[address] [facility] Comment on above: Order Comment: Speci men Type: BLOOD SPECIMEN Ordering Facility: [facility] Address: [address] [place] [address], [place] [address] Performed By: #### 3 3, 25337-5 #### [facility] CLIA [id number] [address] [place] [address] [place] AST [Catalytic activity/Vol] 13 U/L Normal 13-35 [facility] Comment on above: Order Comment: Speci men Type: BLOOD SPECIMEN Ordering Facility: [facility] Address: [address] [place] [address], [place] [address] Performed By: #### 3 3, #### [facility] CLIA [id number] [address] [place], [place] [address] [place] Bilirubin [Mass/Vol] 0.3 mg/dL Normal 0.2-1.3 [facility] Comment on above: Order Comment: Speci men Type: BLOOD SPECIMEN Ordering Facility: [facility] Address: [address] [place] [address], [place] [address] Performed By: #### 3 016-3, 10884-0 #### [facility] CLIA [id number] [address] [place] [id number] [place] Calcium [Mass/Vol] 9.6 mg/dL Normal 8.5-10.2 [facility] Comment on above: Order Comment: Speci men Type: BLOOD SPECIMEN Ordering Facility: [facility] Address: [address] [place] [address], [place] [address] Performed By: #### 3 016-3, 56021-4 #### [facility] CLIA [id number] [address] [place] [id number] [place] Chloride [Moles/Vol] 101 mmol/L Normal 97-105 [facility] Comment on above: Order Comment: Speci men Type: BLOOD SPECIMEN Ordering Facility: [facility] Address: [address] [place] [address], [place] [address] Performed By: #### 3 3, 02603-4 #### [facility] CLIA [id number] [address] [place] [address] [place] CO2 [Moles/Vol] 23 mmol/L Normal 22-30 [facility] Comment on above: Order Comment: Speci men Type: BLOOD SPECIMEN Ordering Facility: [facility] Address: [address] [place] [address], [place] [address] Performed By: #### 3 016-3, 48120-1 #### [facility] CLIA [id number] [address] [place] [id number] [place] Creatinine [Mass/Vol] 0.69 mg/dL Normal 0.58-0.[address] [facility] Comment on above: Order Comment: Speci men Type: BLOOD SPECIMEN Ordering Facility: [facility] Address: [address] [place] [address], [place] [address] Performed By: #### 3 016-3, 62460-1 #### [facility] CLIA [id number] [address] [place] [id number] [place] Creatinine and Glomerular filtration rate.predicted panel (S/P/Bld) 119 mL/min/1.73m??? Normal >=60 [facility] Comment on above: Order Comment: Mahogany vargas Type: BLOOD SPECIMEN Ordering Facility: [facility] Address: [address] [place] [address], [place] [address] Result Comment: Samreen mated Glomerular Filtration Rate [...] actual GFR. Performed By: #### 3 016-3, 02522-1 #### [facility] CLIA [id number] [address] [place] [address] [place] Glucose [Mass/Vol] 158 mg/dL High 74-99 [facility] Comment on above: Order Comment: Mahogany vargas Type: BLOOD SPECIMEN Ordering Facility: [facility] Address: [address] [place] [address], [place] [address] Result Comment: The [place] Diabetes Association (ADA) provides guidance for cutoff [...] Standards of Medical Care in Diabetes 2016, [place] Diabetes Association. Diabetes Care. 2016.39(Suppl 1). Performed By: #### 3 016-3, 04730-6 #### [facility] CLIA [id number] [address] [place], [place] [address] [place] Potassium [Moles/Vol] 4.4 mmol/L Normal 3.7-5.[address] [facility] Comment on above: Order Comment: Speci men Type: BLOOD SPECIMEN Ordering Facility: [facility] Address: [address] [facility], [place] [address] Performed By: #### 3 016-3, #### [facility] CLIA [id number] [address] [place] [address] [place] Protein [Mass/Vol] 7.5 g/dL Normal 6.3-8.0 [facility] Comment on above: Order Comment: Speci men Type: BLOOD SPECIMEN Ordering Facility: [facility] Address: [address] [place] [address], [place] [address] Performed By: #### 3 016-3, 18963-9 #### [facility] CLIA [id number] [address] [place] [address] [place] Sodium [Moles/Vol] 138 mmol/L Normal 136-144 [facility] Comment on above: Order Comment: Speci men Type: BLOOD SPECIMEN Ordering Facility: [facility] Address: [address] [place] [address], [place] [address] Performed By: #### 3 016-3, 77607-3 #### [facility] CLIA [id number] [address] [place] [address] [place] Urea nitrogen [Mass/Vol] 9 mg/dL Normal 7-21 [facility] Comment on above: Order Comment: Speci men Type: BLOOD SPECIMEN Ordering Facility: [facility] Address: [address] [place] [address], [place] [address] Performed By: #### 3 016-3, 94260-0 #### [facility] CLIA [id number] [address] [place] [address] [place] HbA1c (Bld)on 07-14-2023 Average glucose Estimated from glycated hemoglobin (Bld) [Mass/Vol] 163 mg/dL Normal [facility] Comment on above: Order Comment: Speci men Type: BLOOD SPECIMEN Ordering Facility: [facility] Address: [address] [place] [address] Result Comment: eAG: (Estimated average glucose) is a calculated value from HgbA1c and is insurance follow up representative of the average blood glucose level in the last 2-3 month period. Performed By: #### 5 5454-3 #### [facility] CLIA [id number] [address] [place] [address] [place] HbA1c (Bld) [Mass fraction] 7.3 % High 4.3-5.6 [facility] Comment on above: Order Comment: Mahogany alicia Type: BLOOD SPECIMEN Ordering Facility: [facility] Address: [address] [place] [address] Result Comment: [place] Diabetes Association guidelines indicate that patients with HgbA1c in the range 5.7-6.4% are at increased risk for development of diabetes, and intervention by lifestyle modification may be beneficial. HgbA1c greater or equal to 6.5% is considered diagnostic of diabetes. Performed By: #### 5 5454-3 #### [facility] CLIA [id number] [address] [place] [address] [place] TSH SerPl-aCncon 07-14-2023 TSH Qn 0.660 m[IU]/L Normal 0.270-4.200 [facility] Comment on above: Order Comment: Mahogany alicia Type: BLOOD SPECIMEN Ordering Facility: [facility] Address: [address] [place] [address] Result Comment: If t he patient is , TSH reference range varies by gestational period: First Trimester (weeks 9-12): 0.180-2.990 mIU/L Second Trimester: 0.110-3.980 mIU/L Third Trimester: 0.480-4.710 mIU/L Francois Matthews et al. A Practical Approach for the Verifications and Determination of Site- and Trimester-Specific Reference Intervals for Thyroid Function tests in . Thyroid, 2019:29:3:412-420. Emeka E, et al. 2017 Guidelines of the [place] Thyroid Association for the Diagnosis and Management of Thyroid Disease during and the . Thyroid, 2017:27:3:315-389. Performed By: #### 3 016-3, 40645-0 #### [facility] CLIA [id number] [address] [place] [address] [place] Absolute lymphocyte countOrd ered By: Willie Dhillon on 07-12-2023 Lymphocytes Auto (Unsp spec) [#/Vol] 4.46 10*3/uL 0.83-4.51 [facility] Basophil percentageOrdered B y: Willie Dhillon on 07-12-2023 Basophil percentage 5-10 SEEN /hpf 0-5 [facility] Basophil percentage 177 mg/dL 74-106 [facility] Basophil percentage 9.0 g/dL 6.4-8.2 [facility] Basophil percentage 0.60 mg/dL 0.20-1.00 [facility] Basophil percentage 136 mmol/L 136-145 [facility] Basophil percentage 4.2 mmol/L 3.5-5.1 [facility] Basophil percentage 100 mmol/L 98-107 [facility] Basophils (Bld) [#/Vol] 10.5 10*3/uL 4.4-11.0 [facility] Basophils (Bld) [#/Vol] 5.4 10*3/uL 2.0-7.7 [facility] Basophils/100 WBC (Bld) 51.3 % 47-70 [facility] Basophils/100 WBC (Bld) 0.3 % 0-5 [facility] Basophils/100 WBC (Bld) 0.4 % 0-1 [facility] Beta hCG serum qualOrdered B y: Willie Dhillon on 07-12-2023 Beta HCG ( test) Ql Negative [facility] Bilirubin Test strip Ql (U)O rdered By: Willie Dhlilon on 07-12-2023 Bilirubin Ql (U) 1 mg/dL Negative [facility] Blood erythrocytes count (nu mber/volume)Ordered By: Willie Dhillon on 07-12-2023 RBC (Bld) [#/Vol] 5.20 10*6/uL 4.2-5.4 [facility] Blood hemoglobin measurement (mass/volume)Ordered By: Willie Dhillon on 07-12-2023 Hemoglobin (Bld) [Mass/Vol] 13.6 g/dL 12.0-15.0 [facility] [facility] Blood lymphocytes/100 leukoc ytesOrdered By: Willie Dhillon on 07-12-2023 Lymphocytes/100 WBC (Bld) 42.6 % 19-41 [facility] Blood monocytes/100 leukocyt esOrdered By: Willie Dhillon on 07-12-2023 Monocytes/100 WBC (Bld) 5.2 % 0-10 [facility] Blood platelet mean volumeOr dered By: Willie Dhillon on 07-12-2023 Platelet mean volume (Bld) [Entitic vol] 9.2 fL 6.2-12.0 [facility] Determination of erythrocyte mean corpuscular volume (MCV)Ordered By: Willie Dhillon on 07-12-2023 MCV (RBC) [Entitic vol] 82.7 fL 81-99 [facility] Hematocrit Auto (Bld) [Volum e fraction]Ordered By: Willie Dhillon on 07-12-2023 Hematocrit (Bld) [Volume fraction] 43.0 % 37-47 [facility] Ketones Test strip Ql (U)Ord ered By: Willie Dhillon on 07-12-2023 Ketones Ql (U) 5 mg/dl Negative [facility] MCHC Auto (RBC) [Mass/Vol]Or dered By: Willie Dhillon on 07-12-2023 MCHC (RBC) [Mass/Vol] 31.6 g/dL 32-36 [facility] Mucus LM Ql (Urine sed)Order ed By: Willie Dhillon on 07-12-2023 Mucus Ql (Urine sed) 0 SEEN /hpf [facility] Nitrite Test strip Ql (U)Ord ered By: Willie Dhillon on 07-12-2023 Nitrite Ql (U) Negative Negative [facility] No Panel InformationOrdered By: Willie Dhillon on 07-12-2023 26.2 pg 27.0-32.0 [facility] 13.3 % 11.6-14.6 [facility] 39.8 fl 35.1-43.9 [facility] 0.200 % 0.0-0.9 [facility] 0 % 0-5 [facility] 68 mL/min >60 [facility] 82 mL/min >60 [facility] 75.55 ml/min [facility] 12.9 RATIO 10-20 [facility] 5.4 g/dL 2.2-4.2 [facility] 30 U/L 13-75 [facility] 112 U/L 45-117 [facility] 12 U/L 13-56 [facility] 28.0 mmol/L 21.0-32.0 [facility] Negative < 50 ng/mL [facility] Positive < 500 ng/mL [facility] Platelets bldOrdered By: Heath Dhillon on 07-12-2023 Platelets (Bld) [#/Vol] 459 10*3/uL 150-450 [facility] Protein Test strip Ql (U)Ord ered By: Willie Dhillon on 07-12-2023 Protein Ql (U) 30 mg/dl Negative [facility] Serum or plasma albumin hussein urement (mass/volume)Ordered By: Willie Dhillon on 07-12-2023 Albumin [Mass/Vol] 3.6 g/dL 3.2-5.0 [facility] Serum or plasma albumin/glob ulin mass ratioOrdered By: Willie Dhillon on 07-12-2023 Albumin/Globulin [Mass ratio] 0.7 {ratio} 0.9-2.4 [facility] Serum or plasma calcium hussein urement (mass/volume)Ordered By: Willie Dhillon on 07-12-2023 Calcium [Mass/Vol] 9.3 mg/dL 8.5-10.1 [facility] Serum or plasma creatinine m easurement (mass/volume)Ordered By: Willie Dhillon on 07-12-2023 Creatinine [Mass/Vol] 1.01 mg/dL 0.55-1.02 [facility] Serum or plasma urea nitroge n measurement (mass/volume)Ordered By: Willie Dhillon on 07-12-2023 Urea nitrogen [Mass/Vol] 13 mg/dL 7-18 [facility] Squamous epithelial cells de tection in urine sediment by light microscopyOrdered By: Willie Dhillon on 07-12-2023 Epithelial cells.squamous LM Ql (Urine sed) 10-25 SEEN /hpf 5-10 [facility] Thin prep Papanicolaou smear with manual screeningOrdered By: Willie Dhillon on 07-12-2023 Thin prep Papanicolaou smear with manual screening 21 U/L 15-37 [facility] Thin prep Papanicolaou smear with manual screening 8 5-15 [facility] Urine blood detectionOrdered By: Willie Dhillon on 07-12-2023 RBC Ql (U) 10 /ul Negative [facility] RBC Ql (U) 0-5 SEEN /hpf 0-5 [facility] Urine clarityOrdered By: Heath Dhillon on 07-12-2023 Clarity (U) Cloudy Clear [facility] Urine color determinationOrd ered By: Willie Dhillon on 07-12-2023 Color (U) Yellow Yellow [facility] Urine glucose detectionOrder ed By: Willie Dhillon on 07-12-2023 Glucose Ql (U) Normal mg/dl Normal [facility] Urine leukocyte esterase det ection by dipstickOrdered By: Willie Dhillon on 07-12-2023 Leukocyte esterase Test strip Ql (U) 100 /ul Negative [facility] Urine pHOrdered By: Willie mo on 07-12-2023 pH (U) 7.0 [pH] 5.0 - 8.0 [facility] Urine phencyclidine (PCP) de tectionOrdered By: Willie Dhillon on 07-12-2023 Phencyclidine Ql (U) Negative < 25 ng/mL [facility] Urine sediment bacteria coun t by microscopy (number/high power field)Ordered By: Willie Dhillon on 07-12-2023 Bacteria LM.HPF (Urine sed) [#/Area] 2 /[HPF] None Seen [facility] Urine specific gravity measu rementOrdered By: Willie Dhillon on 07-12-2023 Specific gravity (U) [Rel density] 1.010 1.002-1.030 [facility] Urobilinogen Auto test strip Ql (U)Ordered By: Willie Dhillon on 07-12-2023 Urobilinogen Ql (U) 1 mg/dl Normal [facility] Absolute lymphocyte countOrd ered By: Alex Christiansen on 06-30-2023 Lymphocytes Auto (Unsp spec) [#/Vol] 2.97 10*3/uL 0.83-4.51 [facility] Basophil percentageOrdered B y: Alex Christiansen on 06-30-2023 Basophil percentage 201 mg/dL 74-106 [facility] Basophil percentage 8.0 g/dL 6.4-8.2 [facility] Basophil percentage 0.50 mg/dL 0.20-1.00 [facility] Basophil percentage 137 mmol/L 136-145 [facility] Basophil percentage 3.3 mmol/L 3.5-5.1 [facility] Basophil percentage 103 mmol/L 98-107 [facility] Basophils (Bld) [#/Vol] 9.9 10*3/uL 4.4-11.0 [facility] Basophils (Bld) [#/Vol] 6.2 10*3/uL 2.0-7.7 [facility] Basophils/100 WBC (Bld) 62.9 % 47-70 [facility] Basophils/100 WBC (Bld) 0.1 % 0-5 [facility] Basophils/100 WBC (Bld) 0.5 % 0-1 [facility] Blood erythrocytes count (nu mber/volume)Ordered By: Alex Christiansen on 06-30-2023 RBC (Bld) [#/Vol] 4.56 10*6/uL 4.2-5.4 [facility] Blood hemoglobin measurement (mass/volume)Ordered By: Alex Christiansen on 06-30-2023 Hemoglobin (Bld) [Mass/Vol] 12.2 g/dL 12.0-15.0 [facility] Blood lymphocytes/100 leukoc ytesOrdered By: Alex Christiansen on 06-30-2023 Lymphocytes/100 WBC (Bld) 30.0 % 19-41 [facility] Blood monocytes/100 leukocyt esOrdered By: Alex Christiansen on 06-30-2023 Monocytes/100 WBC (Bld) 6.1 % 0-10 [facility] Blood platelet mean volumeOr dered By: Alex Christiansen on 06-30-2023 Platelet mean volume (Bld) [Entitic vol] 9.0 fL 6.2-12.0 [facility] Determination of erythrocyte mean corpuscular volume (MCV)Ordered By: Alex Christiansen on 12-20-2023 MCV (RBC) [Entitic vol] 84.0 fL 81-99 [facility] Hematocrit Auto (Bld) [Volum e fraction]Ordered By: Alex Christiansen on 06-30-2023 Hematocrit (Bld) [Volume fraction] 38.3 % 37-47 [facility] MCHC Auto (RBC) [Mass/Vol]Or dered By: Alex Christiansen on 06-30-2023 MCHC (RBC) [Mass/Vol] 31.9 g/dL 32-36 [facility] No Panel InformationOrdered By: Alex Christiansen on 06-30-2023 26.8 pg 27.0-32.0 [facility] 13.6 % 11.6-14.6 [facility] 41.9 fl 35.1-43.9 [facility] 0.400 % 0.0-0.9 [facility] 0 % 0-5 [facility] 81 mL/min >60 [facility] 98 mL/min >60 [facility] 88.73 ml/min [facility] 10.4 RATIO 10-20 [facility] 4.6 g/dL 2.2-4.2 [facility] 22 U/L 13-75 [facility] 114 U/L 45-117 [facility] 11 U/L 13-56 [facility] 26.0 mmol/L 21.0-32.0 [facility] Platelets bldOrdered By: Milton Christiansen on 06-30-2023 Platelets (Bld) [#/Vol] 437 10*3/uL 150-450 [facility] Serum or plasma albumin hussein urement (mass/volume)Ordered By: Alex Christiansen on 06-30-2023 Albumin [Mass/Vol] 3.4 g/dL 3.2-5.0 [facility] Serum or plasma albumin/glob ulin mass ratioOrdered By: Alex Christiansen on 06-30-2023 Albumin/Globulin [Mass ratio] 0.7 {ratio} 0.9-2.4 [facility] Serum or plasma calcium hussein urement (mass/volume)Ordered By: Alex Christiansen on 06-30-2023 Calcium [Mass/Vol] 9.4 mg/dL 8.5-10.1 [facility] Serum or plasma creatinine m easurement (mass/volume)Ordered By: Alex Christiansen on 06-30-2023 Creatinine [Mass/Vol] 0.86 mg/dL 0.55-1.02 [facility] Serum or plasma urea nitroge n measurement (mass/volume)Ordered By: Alex Christiansen on 06-30-2023 Urea nitrogen [Mass/Vol] 9 mg/dL 7-18 [facility] Thin prep Papanicolaou smear with manual screeningOrdered By: Alex Christiansen on 06-30-2023 Thin prep Papanicolaou smear with manual screening 7 U/L 15-37 [facility] Thin prep Papanicolaou smear with manual screening 8 5-15 [facility] Absolute lymphocyte countOrd ered By: Drew Hinsno on 06-28-2023 Lymphocytes Auto (Unsp spec) [#/Vol] 2.31 10*3/uL 0.83-4.51 [facility] Basophil percentageOrdered B y: Drew Hinson on 06-28-2023 Basophil percentage 0-5 SEEN /hpf 0-5 [facility] Basophil percentage 221 mg/dL 74-106 [facility] Basophil percentage 9.3 g/dL 6.4-8.2 [facility] Basophil percentage 0.60 mg/dL 0.20-1.00 [facility] Basophil percentage 136 mmol/L 136-145 [facility] Basophil percentage 3.2 mmol/L 3.5-5.1 [facility] Basophil percentage 102 mmol/L 98-107 [facility] Basophils (Bld) [#/Vol] 9.2 10*3/uL 4.4-11.0 [facility] Basophils (Bld) [#/Vol] 6.4 10*3/uL 2.0-7.7 [facility] Basophils/100 WBC (Bld) 0.5 % 0-1 [facility] Basophils/100 WBC (Bld) 69.1 % 47-70 [facility] Basophils/100 WBC (Bld) 0.1 % 0-5 [facility] Bilirubin [Mass/Vol] 0.60 mg/dL 0.20-1.00 [facility] Comment on above: For patients on eltr ombopag therapy, use of Dimension [place] TBIL is not recommended. Chloride [Moles/Vol] 102 mmol/L 98-107 [facility] Eosinophils/100 WBC (Bld) 0.1 % 0-5 [facility] Glucose [Mass/Vol] 221 mg/dL 74-106 [facility] Comment on above: Glucose result great er than or equal to 200 mg/dLsuggests DIABETES MELLITUS per A.D.A. criteria. Neutrophils (Bld) [#/Vol] 6.4 10*3/uL 2.0-7.7 [facility] Neutrophils/100 WBC (Bld) 69.1 % 47-70 [facility] Potassium [Moles/Vol] 3.2 mmol/L 3.5-5.1 [facility] Protein [Mass/Vol] 9.3 g/dL 6.4-8.2 [facility] Sodium [Moles/Vol] 136 mmol/L 136-145 [facility] WBC (Bld) [#/Vol] 9.2 10*3/uL 4.4-11.0 [facility] Bilirubin Test strip Ql (U)O rdered By: Drew Hinson on 06-28-2023 Bilirubin Ql (U) 1 mg/dL Negative [facility] Comment on above: COLOR OF URINE MAY A FFECT DIPSTICK RESULTS. Blood erythrocytes count (nu mber/volume)Ordered By: Drew Hinson on 06-28-2023 RBC (Bld) [#/Vol] 4.85 10*6/uL 4.2-5.4 [facility] Blood hemoglobin measurement (mass/volume)Ordered By: Drew Hinson on 06-28-2023 Hemoglobin (Bld) [Mass/Vol] 13.0 g/dL 12.0-15.0 [facility] Blood lymphocytes/100 leukoc ytesOrdered By: Drew Hinson on 06-28-2023 Lymphocytes/100 WBC (Bld) 25.1 % 19-41 [facility] Blood monocytes/100 leukocyt esOrdered By: Drew Hinson on 06-28-2023 Monocytes/100 WBC (Bld) 4.8 % 0-10 [facility] Blood platelet mean volumeOr dered By: Drew Hinson on 06-28-2023 Platelet mean volume (Bld) [Entitic vol] 8.9 fL 6.2-12.0 [facility] Determination of erythrocyte mean corpuscular volume (MCV)Ordered By: Drew Hinson on 06-28-2023 MCV (RBC) [Entitic vol] 83.7 fL 81-99 [facility] Hematocrit Auto (Bld) [Volum e fraction]Ordered By: Drew Hinson on 06-28-2023 Hematocrit (Bld) [Volume fraction] 40.6 % 37-47 [facility] Ketones Test strip Ql (U)Ord ered By: Drew Hinson on 06-28-2023 Ketones Ql (U) 50 mg/dl Negative [facility] Laboratory - Chemistry and C hemistry - challengeOrdered By: Drew Hinson on 06-28-2023 ALP [Catalytic activity/Vol] 128 U/L 45-117 [facility] ALT [Catalytic activity/Vol] 13 U/L 13-56 [facility] CO2 [Moles/Vol] 25.0 mmol/L 21.0-32.0 [facility] Globulin (S) [Mass/Vol] 5.4 g/dL 2.2-4.2 [facility] Lipase [Catalytic activity/Vol] 28 U/L 13-75 [facility] Comment on above: Please note:LIPASE r evised reference range effective 22. New Lipase methodology. Expected to produce lower values than the previous assay method. NEW Reference Range: 13 - 75 U/L Urea nitrogen/Creatinine [Mass ratio] 11.7 mg/mg 10-20 [facility] Laboratory - Hematology and Cell countsOrdered By: Drew Hinson on 06-28-2023 Erythrocyte distribution width (RBC) [Entitic vol] 41.7 fL 35.1-43.9 [facility] Erythrocyte distribution width (RBC) [Ratio] 13.6 % 11.6-14.6 [facility] Immature granulocytes/100 WBC (Bld) 0.400 % 0.0-0.9 [facility] Comment on above: IG% - Immature Granu locytes (promyelocytes, myelocytes and metamyelocytes) > 1% indicates that a LEFT SHIFT is Present. MCH (RBC) [Entitic mass] 26.8 pg 27.0-32.0 [facility] Nucleated RBC/100 WBC (Bld) [Ratio] 0 % 0-5 [facility] MCHC Auto (RBC) [Mass/Vol]Or dered By: Drew Hinson on 06-28-2023 MCHC (RBC) [Mass/Vol] 32.0 g/dL 32-36 [facility] Mucus LM Ql (Urine sed)Order ed By: Drew Hinson on 06-28-2023 Mucus Ql (Urine sed) 1+ /hpf [facility] Nitrite Test strip Ql (U)Ord ered By: Drew Hinson on 06-28-2023 Nitrite Ql (U) Negative Negative [facility] No Panel InformationOrdered By: Drew Hinson on 06-28-2023 Estimated Creatinine Clearance Calc 81.18 ml/min [facility] Estimated GFR (MDRD) Amer 89 mL/min >60 [facility] Comment on above: GFR Calc Estimated GFR (MDRD) Non-Af Amer 74 mL/min >60 [facility] Comment on above: Non- GFR Calc 26.8 pg 27.0-32.0 [facility] 13.6 % 11.6-14.6 [facility] 41.7 fl 35.1-43.9 [facility] 0.400 % 0.0-0.9 [facility] 0 % 0-5 [facility] 74 mL/min >60 [facility] 89 mL/min >60 [facility] 81.18 ml/min [facility] 11.7 RATIO 10-20 [facility] 5.4 g/dL 2.2-4.2 [facility] 28 U/L 13-75 [facility] 128 U/L 45-117 [facility] 13 U/L 13-56 [facility] 25.0 mmol/L 21.0-32.0 [facility] Platelets bldOrdered By: Dwight Hinson on 06-28-2023 Platelets (Bld) [#/Vol] 491 10*3/uL 150-450 [facility] Protein Test strip Ql (U)Ord ered By: Drew Hinson on 06-28-2023 Protein Ql (U) 30 mg/dl Negative [facility] Serum or plasma albumin hussein urement (mass/volume)Ordered By: Drew Hinson on 06-28-2023 Albumin [Mass/Vol] 3.9 g/dL 3.2-5.0 [facility] Serum or plasma albumin/glob ulin mass ratioOrdered By: Drew Hinson on 06-28-2023 Albumin/Globulin [Mass ratio] 0.7 {ratio} 0.9-2.4 [facility] Serum or plasma calcium hussein urement (mass/volume)Ordered By: Drew Hinson on 06-28-2023 Calcium [Mass/Vol] 9.6 mg/dL 8.5-10.1 [facility] Serum or plasma creatinine m easurement (mass/volume)Ordered By: Drew Hinson on 06-28-2023 Creatinine [Mass/Vol] 0.94 mg/dL 0.55-1.02 [facility] Comment on above: The validity of the calculated GFR & GFRAA in patients over 70 years has not been determined. Clinical correlation is essential. Serum or plasma urea nitroge n measurement (mass/volume)Ordered By: Drew Hinson on 06-28-2023 Urea nitrogen [Mass/Vol] 11 mg/dL 7-18 [facility] Squamous epithelial cells de tection in urine sediment by light microscopyOrdered By: Drew Hinson on 06-28-2023 Epithelial cells.squamous LM Ql (Urine sed) 5-10 SEEN /hpf 5-10 [facility] Thin prep Papanicolaou smear with manual screeningOrdered By: Drew Hinson on 06-28-2023 Thin prep Papanicolaou smear with manual screening 11 U/L 15-37 [facility] Thin prep Papanicolaou smear with manual screening 9 5-15 [facility] Urine blood detectionOrdered By: Drew Hinson on 06-28-2023 RBC Ql (U) 25 /ul Negative [facility] RBC Ql (U) 0-5 SEEN /hpf 0-5 [facility] Urine clarityOrdered By: Dwight Hinson on 06-28-2023 Clarity (U) Cloudy Clear [facility] Urine color determinationOrd ered By: Drew Hinson on 06-28-2023 Color (U) Yellow Yellow [facility] Urine glucose detectionOrder ed By: Drew Hinson on 06-28-2023 Glucose Ql (U) 50 mg/dl Normal [facility] Urine leukocyte esterase det ection by dipstickOrdered By: Drew Hinson on 06-28-2023 Leukocyte esterase Test strip Ql (U) 25 /ul Negative [facility] Urine pHOrdered By: Drew castellanos on 06-28-2023 pH (U) 6.0 [pH] 5.0 - 8.0 [facility] Urine sediment bacteria coun t by microscopy (number/high power field)Ordered By: Drew Hinson on 06-28-2023 Bacteria LM.HPF (Urine sed) [#/Area] 2 /[HPF] None Seen [facility] Urine specific gravity measu rementOrdered By: Drew Hinson on 06-28-2023 Specific gravity (U) [Rel density] 1.020 1.002-1.030 [facility] Urobilinogen Auto test strip Ql (U)Ordered By: Drew Hinson on 06-28-2023 Urobilinogen Ql (U) 1 mg/dl Normal [facility] Absolute lymphocyte countOrd ered By: Taiwo Chen on 06-26-2023 Lymphocytes Auto (Unsp spec) [#/Vol] 2.63 10*3/uL 0.83-4.51 [facility] Basophil percentageOrdered B y: Taiwo Chen on 06-26-2023 Basophil percentage 228 mg/dL 74-106 [facility] Basophil percentage 8.4 g/dL 6.4-8.2 [facility] Basophil percentage 0.30 mg/dL 0.20-1.00 [facility] Basophil percentage 136 mmol/L 136-145 [facility] Basophil percentage 3.8 mmol/L 3.5-5.1 [facility] Basophil percentage 102 mmol/L 98-107 [facility] Basophils (Bld) [#/Vol] 8.6 10*3/uL 4.4-11.0 [facility] Basophils (Bld) [#/Vol] 5.5 10*3/uL 2.0-7.7 [facility] Basophils/100 WBC (Bld) 0.6 % 0-1 [facility] Basophils/100 WBC (Bld) 63.6 % 47-70 [facility] Basophils/100 WBC (Bld) 0.2 % 0-5 [facility] Bilirubin [Mass/Vol] 0.30 mg/dL 0.20-1.00 [facility] Comment on above: For patients on eltr ombopag therapy, use of Dimension [place] TBIL is not recommended. Chloride [Moles/Vol] 102 mmol/L 98-107 [facility] Eosinophils/100 WBC (Bld) 0.2 % 0-5 [facility] Glucose [Mass/Vol] 228 mg/dL 74-106 [facility] Comment on above: Glucose result great er than or equal to 200 mg/dLsuggests DIABETES MELLITUS per A.D.A. criteria. Neutrophils (Bld) [#/Vol] 5.5 10*3/uL 2.0-7.7 [facility] Neutrophils/100 WBC (Bld) 63.6 % 47-70 [facility] Potassium [Moles/Vol] 3.8 mmol/L 3.5-5.1 [facility] Protein [Mass/Vol] 8.4 g/dL 6.4-8.2 [facility] Sodium [Moles/Vol] 136 mmol/L 136-145 [facility] WBC (Bld) [#/Vol] 8.6 10*3/uL 4.4-11.0 [facility] Blood erythrocytes count (nu mber/volume)Ordered By: Taiwo Chen on 06-26-2023 RBC (Bld) [#/Vol] 4.31 10*6/uL 4.2-5.4 [facility] Blood hemoglobin measurement (mass/volume)Ordered By: Taiwo Chen on 06-26-2023 Hemoglobin (Bld) [Mass/Vol] 11.6 g/dL 12.0-15.0 [facility] Blood lymphocytes/100 leukoc ytesOrdered By: Taiwo Chen on 06-26-2023 Lymphocytes/100 WBC (Bld) 30.6 % 19-41 [facility] Blood monocytes/100 leukocyt esOrdered By: Taiwo Chen on 06-26-2023 Monocytes/100 WBC (Bld) 4.3 % 0-10 [facility] Blood platelet mean volumeOr dered By: Taiwo Chen on 06-26-2023 Platelet mean volume (Bld) [Entitic vol] 9.3 fL 6.2-12.0 [facility] Determination of erythrocyte mean corpuscular volume (MCV)Ordered By: Taiwo Chen on 06-26-2023 MCV (RBC) [Entitic vol] 84.7 fL 81-99 [facility] Hematocrit Auto (Bld) [Volum e fraction]Ordered By: Taiwo Chen on 06-26-2023 Hematocrit (Bld) [Volume fraction] 36.5 % 37-47 [facility] Laboratory - Chemistry and C hemistry - challengeOrdered By: Taiwosarkis Chen on 06-26-2023 ALP [Catalytic activity/Vol] 135 U/L 45-117 [facility] ALT [Catalytic activity/Vol] 15 U/L 13-56 [facility] CO2 [Moles/Vol] 26.0 mmol/L 21.0-32.0 [facility] Globulin (S) [Mass/Vol] 5.0 g/dL 2.2-4.2 [facility] Urea nitrogen/Creatinine [Mass ratio] 11.4 mg/mg 10-20 [facility] - Hematology and Cell countsOrdered By: Taiwo Chen on 06-26-2023 Erythrocyte distribution width (RBC) [Entitic vol] 42.7 fL 35.1-43.9 [facility] Erythrocyte distribution width (RBC) [Ratio] 13.7 % 11.6-14.6 [facility] Immature granulocytes/100 WBC (Bld) 0.700 % 0.0-0.9 [facility] Comment on above: IG% - Immature Granu locytes (promyelocytes, myelocytes and metamyelocytes) > 1% indicates that a LEFT SHIFT is Present. MCH (RBC) [Entitic mass] 26.9 pg 27.0-32.0 [facility] Nucleated RBC/100 WBC (Bld) [Ratio] 0 % 0-5 [facility] MCHC Auto (RBC) [Mass/Vol]Or dered By: Taiwo Chen on 06-26-2023 MCHC (RBC) [Mass/Vol] 31.8 g/dL 32-36 [facility] No Panel InformationOrdered By: Taiwo Chen on 06-26-2023 Estimated Creatinine Clearance Calc 86.71 ml/min [facility] Estimated GFR (MDRD) Amer 97 mL/min >60 [facility] Comment on above: GFR Calc Estimated GFR (MDRD) Non-Af Amer 80 mL/min >60 [facility] Comment on above: Non- GFR Calc 26.9 pg 27.0-32.0 [facility] 13.7 % 11.6-14.6 [facility] 42.7 fl 35.1-43.9 [facility] 0.700 % 0.0-0.9 [facility] 0 % 0-5 [facility] 80 mL/min >60 [facility] 97 mL/min >60 [facility] 86.71 ml/min [facility] 11.4 RATIO 10-20 [facility] 5.0 g/dL 2.2-4.2 [facility] 135 U/L 45-117 [facility] 15 U/L 13-56 [facility] 26.0 mmol/L 21.0-32.0 [facility] Platelets bldOrdered By: Liss Chen on 06-26-2023 Platelets (Bld) [#/Vol] 464 10*3/uL 150-450 [facility] Serum or plasma albumin hussein urement (mass/volume)Ordered By: Taiwo Chen on 06-26-2023 Albumin [Mass/Vol] 3.4 g/dL 3.2-5.0 [facility] Serum or plasma albumin/glob ulin mass ratioOrdered By: Taiwo Chen on 06-26-2023 Albumin/Globulin [Mass ratio] 0.7 {ratio} 0.9-2.4 [facility] Serum or plasma calcium hussein urement (mass/volume)Ordered By: Taiwo Chen on 06-26-2023 Calcium [Mass/Vol] 9.5 mg/dL 8.5-10.1 [facility] Serum or plasma creatinine m easurement (mass/volume)Ordered By: Taiwo Chen on 06-26-2023 Creatinine [Mass/Vol] 0.88 mg/dL 0.55-1.02 [facility] Comment on above: The validity of the calculated GFR & GFRAA in patients over 70 years has not been determined. Clinical correlation is essential. Serum or plasma urea nitroge n measurement (mass/volume)Ordered By: Taiwo Chen on 06-26-2023 Urea nitrogen [Mass/Vol] 10 mg/dL 7-18 [facility] Thin prep Papanicolaou smear with manual screeningOrdered By: Taiwo Chen on 06-26-2023 Thin prep Papanicolaou smear with manual screening 8 U/L 15-37 [facility] Thin prep Papanicolaou smear with manual screening 8 5-15 [facility] Absolute lymphocyte countOrd ered By: Tesfaye Paula on 06-25-2023 Lymphocytes Auto (Unsp spec) [#/Vol] 2.74 10*3/uL 0.83-4.51 [facility] Basophil percentageOrdered B y: Tesfaye Paula on 06-25-2023 Basophil percentage 259 mg/dL 74-106 [facility] Basophil percentage 8.7 g/dL 6.4-8.2 [facility] Basophil percentage 0.40 mg/dL 0.20-1.00 [facility] Basophil percentage 137 mmol/L 136-145 [facility] Basophil percentage 4.0 mmol/L 3.5-5.1 [facility] Basophil percentage 103 mmol/L 98-107 [facility] Basophils (Bld) [#/Vol] 11.7 10*3/uL 4.4-11.0 [facility] Basophils (Bld) [#/Vol] 8.5 10*3/uL 2.0-7.7 [facility] Basophils/100 WBC (Bld) 0.4 % 0-1 [facility] Basophils/100 WBC (Bld) 72.6 % 47-70 [facility] Basophils/100 WBC (Bld) 0.0 % 0-5 [facility] Bilirubin [Mass/Vol] 0.40 mg/dL 0.20-1.00 [facility] Comment on above: For patients on eltr ombopag therapy, use of Dimension [place] TBIL is not recommended. Chloride [Moles/Vol] 103 mmol/L 98-107 [facility] Eosinophils/100 WBC (Bld) 0.0 % 0-5 [facility] Glucose [Mass/Vol] 259 mg/dL 74-106 [facility] Comment on above: Glucose result great er than or equal to 200 mg/dLsuggests DIABETES MELLITUS per A.D.A. criteria. Neutrophils (Bld) [#/Vol] 8.5 10*3/uL 2.0-7.7 [facility] Neutrophils/100 WBC (Bld) 72.6 % 47-70 [facility] Potassium [Moles/Vol] 4.0 mmol/L 3.5-5.1 [facility] Protein [Mass/Vol] 8.7 g/dL 6.4-8.2 [facility] Sodium [Moles/Vol] 137 mmol/L 136-145 [facility] WBC (Bld) [#/Vol] 11.7 10*3/uL 4.4-11.0 [facility] Basophil percentage 0-5 SEEN /hpf 0-5 [facility] Bilirubin Test strip Ql (U)O rdered By: Tesfaye Mitchell on 06-25-2023 Bilirubin Ql (U) Negative Negative [facility] Blood erythrocytes count (nu mber/volume)Ordered By: Tesfaye Mitchell on 06-25-2023 RBC (Bld) [#/Vol] 4.53 10*6/uL 4.2-5.4 [facility] Blood hemoglobin measurement (mass/volume)Ordered By: Tesfaye Mitchell on 06-25-2023 Hemoglobin (Bld) [Mass/Vol] 12.0 g/dL 12.0-15.0 [facility] Blood lymphocytes/100 leukoc ytesOrdered By: Tesfaye Mitchell on 06-25-2023 Lymphocytes/100 WBC (Bld) 23.5 % 19-41 [facility] Blood monocytes/100 leukocyt esOrdered By: Tesfaye Mitchell on 06-25-2023 Monocytes/100 WBC (Bld) 2.9 % 0-10 [facility] Blood platelet mean volumeOr dered By: Tesfaye Mitchell on 06-25-2023 Platelet mean volume (Bld) [Entitic vol] 9.1 fL 6.2-12.0 [facility] Determination of erythrocyte mean corpuscular volume (MCV)Ordered By: Tesfaye Mitchell on 06-25-2023 MCV (RBC) [Entitic vol] 84.3 fL 81-99 [facility] Hematocrit Auto (Bld) [Volum e fraction]Ordered By: Tesfaye Mitchell on 06-25-2023 Hematocrit (Bld) [Volume fraction] 38.2 % 37-47 [facility] Ketones Test strip Ql (U)Ord ered By: Tesfaye Mitchell on 06-25-2023 Ketones Ql (U) 15 mg/dl Negative [facility] Laboratory - Chemistry and C hemistry - challengeOrdered By: Tesfaye Mitchell on 06-25-2023 ALP [Catalytic activity/Vol] 156 U/L 45-117 [facility] ALT [Catalytic activity/Vol] 15 U/L -56 [facility] CO2 [Moles/Vol] 24.0 mmol/L 21.0-32.0 [facility] Globulin (S) [Mass/Vol] 5.4 g/dL 2.2-4.2 [facility] Lipase [Catalytic activity/Vol] 32 U/L - [facility] Comment on above: Please note:LIPASE r evised reference range effective 22. New Lipase methodology. Expected to produce lower values than the previous assay method. NEW Reference Range: 13 - 75 U/L Urea nitrogen/Creatinine [Mass ratio] 15.7 mg/mg 10-20 [facility] Laboratory - Drug toxicology Ordered By: Tesfaye Mitchell on 06-25-2023 Amphetamines Ql (U) Negative <1000 ng/mL [facility] Benzodiazepines Ql (U) Negative < 200 ng/mL [facility] Cannabinoids Screen Ql (U) Negative < 50 ng/mL [facility] Cocaine Ql (U) Negative < 300 ng/mL [facility] Opiates Ql (U) Negative < 300 ng/mL [facility] Laboratory - Hematology and Cell countsOrdered By: Tesfaye Mitchell on 06-25-2023 Erythrocyte distribution width (RBC) [Entitic vol] 42.4 fL 35.1-43.9 [facility] Erythrocyte distribution width (RBC) [Ratio] 13.7 % 11.6-14.6 [facility] Immature granulocytes/100 WBC (Bld) 0.600 % 0.0-0.9 [facility] Comment on above: IG% - Immature Granu locytes (promyelocytes, myelocytes and metamyelocytes) > 1% indicates that a LEFT SHIFT is Present. MCH (RBC) [Entitic mass] 26.5 pg 27.0-32.0 [facility] Nucleated RBC/100 WBC (Bld) [Ratio] 0 % 0-5 [facility] MCHC Auto (RBC) [Mass/Vol]Or dered By: Tesfaye Mitchell on 06-25-2023 MCHC (RBC) [Mass/Vol] 31.4 g/dL 32-36 [facility] Mucus LM Ql (Urine sed)Order ed By: Tesfaye Mitchell on 06-25-2023 Mucus Ql (Urine sed) 0 SEEN /hpf [facility] Nitrite Test strip Ql (U)Ord ered By: Tesfaye Mitchell on 06-25-2023 Nitrite Ql (U) Negative Negative [facility] No Panel InformationOrdered By: eTsfaye Mitchell on 06-25-2023 Estimated Creatinine Clearance Calc 91.94 ml/min [facility] Estimated GFR (MDRD) Amer 103 mL/min >60 [facility] Comment on above: GFR Calc Estimated GFR (MDRD) Non-Af Amer 85 mL/min >60 [facility] Comment on above: Non- GFR Calc 26.5 pg 27.0-32.0 [facility] 13.7 % 11.6-14.6 [facility] 42.4 fl 35.1-43.9 [facility] 0.600 % 0.0-0.9 [facility] 0 % 0-5 [facility] 85 mL/min >60 [facility] 103 mL/min >60 [facility] 91.94 ml/min [facility] 15.7 RATIO 10-20 [facility] 5.4 g/dL 2.2-4.2 [facility] 32 U/L 13-75 [facility] 156 U/L 45-117 [facility] 15 U/L 13-56 [facility] 24.0 mmol/L 21.0-32.0 [facility] MDMA (Ecstasy) Screen Positive < 500 ng/mL [facility] Urine Barbiturates Screen Negative < 200 ng/mL [facility] Urine Drug Screen Comment [facility] Comment on above: CONFIRMATORY TESTING FOR [...] Methadone Screen Negative < 300 ng/mL [facility] Negative < 50 ng/mL [facility] Positive < 500 ng/mL [facility] Platelets bldOrdered By: Mauro Mitchell on 06-25-2023 Platelets (Bld) [#/Vol] 497 10*3/uL 150-450 [facility] Protein Test strip Ql (U)Ord ered By: Tesfaye Mitchell on 06-25-2023 Protein Ql (U) 30 mg/dl Negative [facility] Serum or plasma albumin hussein urement (mass/volume)Ordered By: Tesfaye Mitchell on 06-25-2023 Albumin [Mass/Vol] 3.3 g/dL 3.2-5.0 [facility] Serum or plasma albumin/glob ulin mass ratioOrdered By: Tesfaye Mitchell on 06-25-2023 Albumin/Globulin [Mass ratio] 0.6 {ratio} 0.9-2.4 [facility] Serum or plasma calcium hussein urement (mass/volume)Ordered By: Tesfaye Mitchell on 06-25-2023 Calcium [Mass/Vol] 9.6 mg/dL 8.5-10.1 [facility] Serum or plasma creatinine m easurement (mass/volume)Ordered By: Tesfaye Mitchell on 06-25-2023 Creatinine [Mass/Vol] 0.83 mg/dL 0.55-1.02 [facility] Comment on above: The validity of the calculated GFR & GFRAA in patients over 70 years has not been determined. Clinical correlation is essential. Serum or plasma urea nitroge n measurement (mass/volume)Ordered By: Tesfaye Mitchell on 06-25-2023 Urea nitrogen [Mass/Vol] 13 mg/dL 7-18 [facility] Squamous epithelial cells de tection in urine sediment by light microscopyOrdered By: Tesfaye Mitchell on 06-25-2023 Epithelial cells.squamous LM Ql (Urine sed) 5-10 SEEN /hpf 5-10 [facility] Thin prep Papanicolaou smear with manual screeningOrdered By: Tesfaye Mitchell on 06-25-2023 Thin prep Papanicolaou smear with manual screening 14 U/L 15-37 [facility] Thin prep Papanicolaou smear with manual screening 10 5-15 [facility] Urine blood detectionOrdered By: Tesfaye Mitchell on 06-25-2023 RBC Ql (U) 250 /ul Negative [facility] RBC Ql (U) > 100 SEEN /hpf 0-5 [facility] Urine clarityOrdered By: Mauro Mitchell on 06-25-2023 Clarity (U) Sl. Cloudy Clear [facility] Urine color determinationOrd ered By: Tesfaye Mitchell on 06-25-2023 Color (U) Yellow Yellow [facility] Urine glucose detectionOrder ed By: Tesfaye Mitchell on 06-25-2023 Glucose Ql (U) 250 mg/dl Normal [facility] Urine leukocyte esterase det ection by dipstickOrdered By: Tesfaye Mitchell on 06-25-2023 Leukocyte esterase Test strip Ql (U) 25 /ul Negative [facility] Urine pHOrdered By: Tesfaye figueroa on 06-25-2023 pH (U) 7.0 [pH] 5.0 - 8.0 [facility] Urine phencyclidine (PCP) de tectionOrdered By: Tesfaye Mitchell on 06-25-2023 Phencyclidine Ql (U) Negative < 25 ng/mL [facility] Urine sediment bacteria coun t by microscopy (number/high power field)Ordered By: Tesfaye Mitchell on 06-25-2023 Bacteria LM.HPF (Urine sed) [#/Area] 0 /[HPF] None Seen [facility] Urine specific gravity measu rementOrdered By: Tesfaye Mitchell on 06-25-2023 Specific gravity (U) [Rel density] 1.010 1.002-1.030 [facility] Urobilinogen Auto test strip Ql (U)Ordered By: Tesfaye Mitchell on 06-25-2023 Urobilinogen Ql (U) Normal mg/dl Normal [facility] Anaerobic cultureOrdered By: Abdirizak Forrest on 05-18-2023 Bacteria identified Anaer cx Nom (Unsp spec) No anaerobic bacteria isolated. [facility] Bacteria identified Cx Nom ( Wound)Ordered By: Abdirizak Forrest on 05-18-2023 Wound Culture Meth. resistant Stap h. aureus [facility] Routine wound culture Meth. resistant St aph. aureus [facility] Fungus cultureOrdered By: Neva Forrest on 05-18-2023 Fungus identified Cx Nom (Unsp spec) [facility] Gram stain for investigation of transfusion reactionOrdered By: Abdirizak Forrest on 05-18-2023 Microscopic observation Gram stain Nom (Unsp spec) [facility] Glucose Glucometer (BldC) [M ass/Vol]Ordered By: Rickey Gifford on 05-09-2023 Glucose [Mass/Vol] 157 mg/dL 74-106 [facility] Comment on above: MANAGEMENT OF PATIEN T CARE PER NURSING PROTOCOL Basophil percentageOrdered B y: Rickey Gifford on 05-07-2023 Basophil percentage 161 mg/dL 74-106 [facility] Basophil percentage 138 mmol/L 136-145 [facility] Basophil percentage 4.0 mmol/L 3.5-5.1 [facility] Basophil percentage 108 mmol/L 98-107 [facility] Chloride [Moles/Vol] 108 mmol/L 98-107 [facility] Glucose [Mass/Vol] 161 mg/dL 74-106 [facility] Comment on above: Fasting Glucose resu lt greater than or equal to 126 mg/dL suggests DIABETES MELLITUS per A.D.A. criteria. Potassium [Moles/Vol] 4.0 mmol/L 3.5-5.1 [facility] Sodium [Moles/Vol] 138 mmol/L 136-145 [facility] Laboratory - Chemistry and C hemistry - challengeOrdered By: Rickey Gifford on 05-07-2023 CO2 [Moles/Vol] 26.0 mmol/L 21.0-32.0 [facility] Urea nitrogen/Creatinine [Mass ratio] 17.1 mg/mg - [facility] No Panel InformationOrdered By: Rickey Gifford on 05-07-2023 Estimated Creatinine Clearance Calc 131.56 ml/min [facility] Estimated GFR (MDRD) Amer 154 mL/min >60 [facility] Comment on above: GFR Calc Estimated GFR (MDRD) Non-Af Amer 127 mL/min >60 [facility] Comment on above: Non- GFR Calc 127 mL/min >60 [facility] 154 mL/min >60 [facility] 131.56 ml/min [facility] 17.1 RATIO 04-30 [facility] 26.0 mmol/L 21.0-32.0 [facility] Serum or plasma calcium hussein urement (mass/volume)Ordered By: Rickey Gifford on 05-07-2023 Calcium [Mass/Vol] 8.4 mg/dL 8.5-10.1 [facility] Serum or plasma creatinine m easurement (mass/volume)Ordered By: Rickey Gifford on 05-07-2023 Creatinine [Mass/Vol] 0.58 mg/dL 0.55-1.02 [facility] Comment on above: The validity of the calculated GFR & GFRAA in patients over 70 years has not been determined. Clinical correlation is essential. Serum or plasma urea nitroge n measurement (mass/volume)Ordered By: Rickey Gifford on 05-07-2023 Urea nitrogen [Mass/Vol] 10 mg/dL 7-18 [facility] Thin prep Papanicolaou smear with manual screeningOrdered By: Rickey Gifford on 05-07-2023 Thin prep Papanicolaou smear with manual screening 4 5-15 [facility] Absolute lymphocyte countOrd ered By: Rickey Gifford on 05-06-2023 Lymphocytes Auto (Unsp spec) [#/Vol] 2.89 10*3/uL 0.83-4.51 [facility] Basophil percentageOrdered B y: Rickey Gifford on 05-06-2023 Basophils (Bld) [#/Vol] 5.8 10*3/uL 4.4-11.0 [facility] Basophils (Bld) [#/Vol] 2.4 10*3/uL 2.0-7.7 [facility] Basophils/100 WBC (Bld) 40.5 % 47-70 [facility] Basophils/100 WBC (Bld) 0.3 % 0-5 [facility] Basophils/100 WBC (Bld) 0.5 % 0-1 [facility] Eosinophils/100 WBC (Bld) 0.3 % 0-5 [facility] Neutrophils (Bld) [#/Vol] 2.4 10*3/uL 2.0-7.7 [facility] Neutrophils/100 WBC (Bld) 40.5 % 47-70 [facility] WBC (Bld) [#/Vol] 5.8 10*3/uL 4.4-11.0 [facility] Blood erythrocytes count (nu mber/volume)Ordered By: Rickey Gifford on 05-06-2023 RBC (Bld) [#/Vol] 3.54 10*6/uL 4.2-5.4 [facility] Blood hemoglobin measurement (mass/volume)Ordered By: Rickey Gifford on 05-06-2023 Hemoglobin (Bld) [Mass/Vol] 10.1 g/dL 12.0-15.0 [facility] Blood lymphocytes/100 leukoc ytesOrdered By: Rickey Gifford on 05-06-2023 Lymphocytes/100 WBC (Bld) 49.6 % 19-41 [facility] Blood monocytes/100 leukocyt esOrdered By: Rickey Gifford on 05-06-2023 Monocytes/100 WBC (Bld) 8.4 % 0-10 [facility] Blood platelet mean volumeOr dered By: Rickey Gifford on 05-06-2023 Platelet mean volume (Bld) [Entitic vol] 9.4 fL 6.2-12.0 [facility] Determination of erythrocyte mean corpuscular volume (MCV)Ordered By: Rickey Gifford on 05-06-2023 MCV (RBC) [Entitic vol] 92.7 fL 81-99 [facility] Hematocrit Auto (Bld) [Volum e fraction]Ordered By: Rickey Gifford on 05-06-2023 Hematocrit (Bld) [Volume fraction] 32.8 % 37-47 [facility] Laboratory - Hematology and Cell countsOrdered By: Rickey Gifford on 05-06-2023 Erythrocyte distribution width (RBC) [Entitic vol] 54.6 fL 35.1-43.9 [facility] Erythrocyte distribution width (RBC) [Ratio] 15.9 % 11.6-14.6 [facility] Immature granulocytes/100 WBC (Bld) 0.700 % 0.0-0.9 [facility] Comment on above: IG% - Immature Granu locytes (promyelocytes, myelocytes and metamyelocytes) > 1% indicates that a LEFT SHIFT is Present. MCH (RBC) [Entitic mass] 28.5 pg 27.0-32.0 [facility] Nucleated RBC/100 WBC (Bld) [Ratio] 0 % 0-5 [facility] MCHC Auto (RBC) [Mass/Vol]Or dered By: Rickey Gifford on 05-06-2023 MCHC (RBC) [Mass/Vol] 30.8 g/dL 32-36 [facility] No Panel InformationOrdered By: Rickey Gifford on 05-06-2023 28.5 pg 27.0-32.0 [facility] 15.9 % 11.6-14.6 [facility] 54.6 fl 35.1-43.9 [facility] 0.700 % 0.0-0.9 [facility] 0 % 0-5 [facility] Platelets bldOrdered By: Ivy Gifford on 05-06-2023 Platelets (Bld) [#/Vol] 317 10*3/uL 150-450 [facility] Serum or plasma trough vanco mycin levelOrdered By: Rickey Gifford on 05-05-2023 Vancomycin trough [Mass/Vol] 15.1 ug/mL 5.0-15.0 [facility] Comment on above: VANCOMYCIN STANDARED DRUG THERAPY TROUGH LEVEL: 5.0 - 15.0 mg/L VANCOMYCIN HIGH INTENSITY THERAPY TROUGH LEVEL: 15.0 - 20.0 mg/L High Intensity therapy recommended for serious lifethreatening infections include:- Aaafauufue-Rhlwdqymsuyv-Pnwqczptq (Ventilator/Healtcare Associated)-Sepsis PLEASE CONTACT PHARMACY SERVICES (#[id number]) FOR INTERPRETATIONOF RESULTS. Absolute lymphocyte countOrd ered By: Javy Doss on 05-04-2023 Lymphocytes Auto (Unsp spec) [#/Vol] 1.65 10*3/uL 0.83-4.51 [facility] Bacteria identified Anaer cx Nom (Unsp spec)Ordered By: Abdirizak Forrest on 05-04-2023 Anaerobic Culture Bacteroides fragilis [facility] Bacteria identified Cx Nom ( Wound)Ordered By: Abdirizak Forrest on 05-04-2023 Wound Culture Streptococcus dysgalactiae dys [facility] Routine wound culture Streptococcus dysgalactiae dys [facility] Basophil percentageOrdered B y: Javy Doss on 05-04-2023 Basophil percentage 207 mg/dL 74-106 [facility] Basophil percentage 133 mmol/L 136-145 [facility] Basophil percentage 3.8 mmol/L 3.5-5.1 [facility] Basophil percentage 102 mmol/L 98-107 [facility] Basophil percentage 1.9 mmol/L 0.4-2.0 [facility] Basophils (Bld) [#/Vol] 11.1 10*3/uL 4.4-11.0 [facility] Basophils (Bld) [#/Vol] 8.1 10*3/uL 2.0-7.7 [facility] Basophils/100 WBC (Bld) 73.2 % 47-70 [facility] Basophils/100 WBC (Bld) 0.0 % 0-5 [facility] Basophils/100 WBC (Bld) 0.4 % 0-1 [facility] Lactate [Moles/Vol] 1.9 mmol/L 0.4-2.0 [facility] Blood erythrocytes count (nu mber/volume)Ordered By: Javy Doss on 05-04-2023 RBC (Bld) [#/Vol] 3.68 10*6/uL 4.2-5.4 [facility] Blood hemoglobin measurement (mass/volume)Ordered By: Javy Doss on 05-04-2023 Hemoglobin (Bld) [Mass/Vol] 10.5 g/dL 12.0-15.0 [facility] Blood lymphocytes/100 leukoc ytesOrdered By: Javy Doss on 05-04-2023 Lymphocytes/100 WBC (Bld) 14.9 % 19-41 [facility] Blood monocytes/100 leukocyt esOrdered By: Javy Doss on 05-04-2023 Monocytes/100 WBC (Bld) 10.2 % 0-10 [facility] Blood platelet mean volumeOr dered By: Javy Doss on 05-04-2023 Platelet mean volume (Bld) [Entitic vol] 9.2 fL 6.2-12.0 [facility] Determination of erythrocyte mean corpuscular volume (MCV)Ordered By: Javy Doss on 05-04-2023 MCV (RBC) [Entitic vol] 89.1 fL 81-99 [facility] Erythrocyte sedimentation ra teOrdered By: Abdirizak Forrest on 05-04-2023 ESR (Bld) [Velocity] 88 mm/h 0-30 [facility] Fungus cultureOrdered By: Neva Forrest on 05-04-2023 Fungus identified Cx Nom (Unsp spec) [facility] Fungus stainOrdered By: Jonas Forrest on 05-04-2023 Fungus identified Fungus stain Nom (Unsp spec) [facility] Gram stain for investigation of transfusion reactionOrdered By: Abdirizak Forrest on 05-04-2023 Microscopic observation Gram stain Nom (Unsp spec) [facility] Microscopic observation Gram stain Nom (Unsp spec) [facility] Hematocrit Auto (Bld) [Volum e fraction]Ordered By: Javy Doss on 05-04-2023 Hematocrit (Bld) [Volume fraction] 32.8 % 37-47 [facility] Laboratory - Chemistry and C hemistry - challengeOrdered By: Ronald Hilario on 05-04-2023 HCG ( test) Ql (U) Negative [facility] Comment on above: Very dilute urine sp ecimens, as indicated by a low specificgravity, may not contain insurance follow up representative levels of hCG. If is still suspected, a first morning urinespecimen should be collected 48 hours later and tested. Laboratory - Microbiology an d Antimicrobial susceptibilityOrdered By: Javy Doss on 05-04-2023 Bacteria identified Cx Nom (Bld) No growth in 5 days. [facility] MCHC Auto (RBC) [Mass/Vol]Or dered By: Javy Doss on 05-04-2023 MCHC (RBC) [Mass/Vol] 32.0 g/dL 32-36 [facility] No Panel InformationOrdered By: Ronald Hilario on 05-04-2023 Negative [facility] No Panel InformationOrdered By: Rem Ungmeño on 05-04-2023 No growth in 5 days. [facility] 28.5 pg 27.0-32.0 [facility] 15.9 % 11.6-14.6 [facility] 52.3 fl 35.1-43.9 [facility] 1.300 % 0.0-0.9 [facility] 0 % 0-5 [facility] 100 mL/min >60 [facility] 121 mL/min >60 [facility] 105.98 ml/min [facility] 12.5 RATIO 10-20 [facility] 27.0 mmol/L 21.0-32.0 [facility] Platelets bldOrdered By: Haylee us Romario on 05-04-2023 Platelets (Bld) [#/Vol] 333 10*3/uL 150-450 [facility] Serum or plasma C reactive p rotein measurement (mass/volume)Ordered By: Abdirizak Forrest on 05-04-2023 CRP [Mass/Vol] 117.00 mg/L 0.0-3.0 [facility] Comment on above: C-Reactive Protein ( CRP) provides useful information for thediagnosis, therapy and monitoring of inflammatory processesand associated diseases. For the evaluation of Relative Riskfor Cardiovascular Disease, a High Sensitivity CRP (HSCRP)should be ordered. Serum or plasma calcium hussein urement (mass/volume)Ordered By: Remus Romario on 05-04-2023 Calcium [Mass/Vol] 8.7 mg/dL 8.5-10.1 [facility] Serum or plasma creatinine m easurement (mass/volume)Ordered By: Remus Ungmeño on 05-04-2023 Creatinine [Mass/Vol] 0.72 mg/dL 0.55-1.02 [facility] Serum or plasma urea nitroge n measurement (mass/volume)Ordered By: Remus Ungmeño on 05-04-2023 Urea nitrogen [Mass/Vol] 9 mg/dL 7-18 [facility] Thin prep Papanicolaou smear with manual screeningOrdered By: Javy Doss on 05-04-2023 Thin prep Papanicolaou smear with manual screening 4 5-15 [facility] Whole blood hemoglobin A1c/t otal hemoglobin ratio (mass fraction)Ordered By: Abdirizak Forrest on 05-04-2023 HbA1c (Bld) [Mass fraction] 7.2 % 3.8-5.6 [facility] Comment on above: Normal < 5.7 % Predi abetic 5.7 - 6.4 % Diabetic >or= 6.5 % Please note range changes. Absolute lymphocyte countOrd ered By: Deann Guerrero on 04-14-2023 Lymphocytes Auto (Unsp spec) [#/Vol] 3.05 10*3/uL 0.83-4.51 [facility] Basophil percentageOrdered B y: Deann Guerrero on 04-14-2023 Basophil percentage 179 mg/dL 74-106 [facility] Basophil percentage 8.2 g/dL 6.4-8.2 [facility] Basophil percentage 0.60 mg/dL 0.20-1.00 [facility] Basophil percentage 135 mmol/L 136-145 [facility] Basophil percentage 3.6 mmol/L 3.5-5.1 [facility] Basophil percentage 103 mmol/L 98-107 [facility] Basophils (Bld) [#/Vol] 7.8 10*3/uL 4.4-11.0 [facility] Basophils (Bld) [#/Vol] 4.1 10*3/uL 2.0-7.7 [facility] Basophils/100 WBC (Bld) 52.8 % 47-70 [facility] [facility] Bas[facility]/100 WBC (Bld) 0.3 % 0-5 [facility] Basophils/100 WBC (Bld) 0.5 % 0-1 [facility] Bilirubin [Mass/Vol] 0.60 mg/dL 0.20-1.00 [facility] Comment on above: For patients on eltr ombopag therapy, use of Dimension [place] TBIL is not recommended. Chloride [Moles/Vol] 103 mmol/L 98-107 [facility] Eosinophils/100 WBC (Bld) 0.3 % 0-5 [facility] Glucose [Mass/Vol] 179 mg/dL 74-106 [facility] Comment on above: Fasting Glucose resu lt greater than or equal to 126 mg/dL suggests DIABETES MELLITUS per A.D.A. criteria. Neutrophils (Bld) [#/Vol] 4.1 10*3/uL 2.0-7.7 [facility] Neutrophils/100 WBC (Bld) 52.8 % 47-70 [facility] Potassium [Moles/Vol] 3.6 mmol/L 3.5-5.1 [facility] Protein [Mass/Vol] 8.2 g/dL 6.4-8.2 [facility] Sodium [Moles/Vol] 135 mmol/L 136-145 [facility] WBC (Bld) [#/Vol] 7.8 10*3/uL 4.4-11.0 [facility] Blood erythrocytes count (nu mber/volume)Ordered By: Deann Guerrero on 04-14-2023 RBC (Bld) [#/Vol] 4.57 10*6/uL 4.2-5.4 [facility] Blood hemoglobin measurement (mass/volume)Ordered By: Deann Guerrero on 04-14-2023 Hemoglobin (Bld) [Mass/Vol] 12.8 g/dL 12.0-15.0 [facility] Blood lymphocytes/100 leukoc ytesOrdered By: Deann Guerrero on 04-14-2023 Lymphocytes/100 WBC (Bld) 39.3 % 19-41 [facility] Blood monocytes/100 leukocyt esOrdered By: Deann Guerrero on 04-14-2023 Monocytes/100 WBC (Bld) 6.1 % 0-10 [facility] Blood platelet mean volumeOr dered By: Deann Guerrero on 04-14-2023 Platelet mean volume (Bld) [Entitic vol] 8.3 fL 6.2-12.0 [facility] Determination of erythrocyte mean corpuscular volume (MCV)Ordered By: Deann Guerrero on 04-14-2023 MCV (RBC) [Entitic vol] 87.7 fL 81-99 [facility] Direct bilirubinOrdered By: Deann Guerrero on 04-14-2023 Bilirubin.direct [Mass/Vol] 0.16 mg/dL 0.00-0.30 [facility] Hematocrit Auto (Bld) [Volum e fraction]Ordered By: Deann Guerrero on 04-14-2023 Hematocrit (Bld) [Volume fraction] 40.1 % 37-47 [facility] Laboratory - Chemistry and C hemistry - challengeOrdered By: Deann Guerrero on 04-14-2023 ALP [Catalytic activity/Vol] 111 U/L 45-117 [facility] ALT [Catalytic activity/Vol] 23 U/L 13-56 [facility] CO2 [Moles/Vol] 25.0 mmol/L 21.0-32.0 [facility] Globulin (S) [Mass/Vol] 5.0 g/dL 2.2-4.2 [facility] Lipase [Catalytic activity/Vol] 80 U/L -75 [facility] Comment on above: Please note:LIPASE r evised reference range effective 22. New Lipase methodology. Expected to produce lower values than the previous assay method. NEW Reference Range: 13 - 75 U/L Urea nitrogen/Creatinine [Mass ratio] 9.6 mg/mg 10-20 [facility] Laboratory - Hematology and Cell countsOrdered By: Deann Guerrero on 04-14-2023 Erythrocyte distribution width (RBC) [Entitic vol] 48.6 fL 35.1-43.9 [facility] Erythrocyte distribution width (RBC) [Ratio] 16.4 % 11.6-14.6 [facility] Immature granulocytes/100 WBC (Bld) 1.000 % 0.0-0.9 [facility] Comment on above: IG% - Immature Granu locytes (promyelocytes, myelocytes and metamyelocytes) > 1% indicates that a LEFT SHIFT is Present. MCH (RBC) [Entitic mass] 28.0 pg 27.0-32.0 [facility] Nucleated RBC/100 WBC (Bld) [Ratio] 0 % 0-5 [facility] MCHC Auto (RBC) [Mass/Vol]Or dered By: Deann Guerrero on 04-14-2023 MCHC (RBC) [Mass/Vol] 31.9 g/dL 32-36 [facility] No Panel InformationOrdered By: Deann Guerrero on 04-14-2023 Estimated Creatinine Clearance Calc 73.37 ml/min [facility] Estimated GFR (MDRD) Amer 79 mL/min >60 [facility] Comment on above: GFR Calc Estimated GFR (MDRD) Non-Af Amer 66 mL/min >60 [facility] Comment on above: Non- GFR Calc 28.0 pg 27.0-32.0 [facility] 16.4 % 11.6-14.6 [facility] 48.6 fl 35.1-43.9 [facility] 1.000 % 0.0-0.9 [facility] 0 % 0-5 [facility] 66 mL/min >60 [facility] 79 mL/min >60 [facility] 73.37 ml/min [facility] 9.6 RATIO 10-20 [facility] 5.0 g/dL 2.2-4.2 [facility] 80 U/L 13-75 [facility] 111 U/L 45-117 [facility] 23 U/L 13-56 [facility] 25.0 mmol/L 21.0-32.0 [facility] Platelets bldOrdered By: Sulema Guerrero on 04-14-2023 Platelets (Bld) [#/Vol] 565 10*3/uL 150-450 [facility] Serum or plasma albumin hussein urement (mass/volume)Ordered By: Deann Guerrero on 04-14-2023 Albumin [Mass/Vol] 3.2 g/dL 3.2-5.0 [facility] Serum or plasma calcium hussein urement (mass/volume)Ordered By: Deann Guerrero on 04-14-2023 Calcium [Mass/Vol] 9.5 mg/dL 8.5-10.1 [facility] Serum or plasma creatinine m easurement (mass/volume)Ordered By: Denan Guerrero on 04-14-2023 Creatinine [Mass/Vol] 1.04 mg/dL 0.55-1.02 [facility] Comment on above: The validity of the calculated GFR & GFRAA in patients over 70 years has not been determined. Clinical correlation is essential. Serum or plasma urea nitroge n measurement (mass/volume)Ordered By: Deann Guerrero on 04-14-2023 Urea nitrogen [Mass/Vol] 10 mg/dL 7-18 [facility] Thin prep Papanicolaou smear with manual screeningOrdered By: Deann Guerrero on 04-14-2023 Thin prep Papanicolaou smear with manual screening 13 U/L 15-37 [facility] Thin prep Papanicolaou smear with manual screening 7 5-15 [facility] Absolute lymphocyte countOrd ered By: Poli Barfield on 04-13-2023 Lymphocytes Auto (Unsp spec) [#/Vol] 3.04 10*3/uL 0.83-4.51 [facility] Basophil percentageOrdered B y: Poli Barfield on 04-13-2023 Basophil percentage 280 mg/dL 74-106 [facility] Basophil percentage 7.8 g/dL 6.4-8.2 [facility] Basophil percentage 0.60 mg/dL 0.20-1.00 [facility] Basophil percentage 132 mmol/L 136-145 [facility] Basophil percentage 4.0 mmol/L 3.5-5.1 [facility] Basophil percentage 100 mmol/L 98-107 [facility] Basophils (Bld) [#/Vol] 8.7 10*3/uL 4.4-11.0 [facility] Basophils (Bld) [#/Vol] 5.1 10*3/uL 2.0-7.7 [facility] Basophils/100 WBC (Bld) 58.8 % 47-70 [facility] Basophils/100 WBC (Bld) 0.1 % 0-5 [facility] Basophils/100 WBC (Bld) 0.6 % 0-1 [facility] Bilirubin [Mass/Vol] 0.60 mg/dL 0.20-1.00 [facility] Comment on above: For patients on eltr ombopag therapy, use of Dimension [place] TBIL is not recommended. Chloride [Moles/Vol] 100 mmol/L 98-107 [facility] Eosinophils/100 WBC (Bld) 0.1 % 0-5 [facility] Glucose [Mass/Vol] 280 mg/dL 74-106 [facility] Comment on above: Glucose result great er than or equal to 200 mg/dLsuggests DIABETES MELLITUS per A.D.A. criteria. Neutrophils (Bld) [#/Vol] 5.1 10*3/uL 2.0-7.7 [facility] Neutrophils/100 WBC (Bld) 58.8 % 47-70 [facility] Potassium [Moles/Vol] 4.0 mmol/L 3.5-5.1 [facility] Protein [Mass/Vol] 7.8 g/dL 6.4-8.2 [facility] Sodium [Moles/Vol] 132 mmol/L 136-145 [facility] WBC (Bld) [#/Vol] 8.7 10*3/uL 4.4-11.0 [facility] Beta hCG serum qualOrdered B y: Poli Barfield on 04-13-2023 Beta HCG ( test) Ql Negative [facility] Blood erythrocytes count (nu mber/volume)Ordered By: Poli Barfield on 04-13-2023 RBC (Bld) [#/Vol] 4.42 10*6/uL 4.2-5.4 [facility] Blood hemoglobin measurement (mass/volume)Ordered By: Poli Barfield on 04-13-2023 Hemoglobin (Bld) [Mass/Vol] 12.6 g/dL 12.0-15.0 [facility] Blood lymphocytes/100 leukoc ytesOrdered By: Poli Barfield on 04-13-2023 Lymphocytes/100 WBC (Bld) 35.1 % 19-41 [facility] Blood monocytes/100 leukocyt esOrdered By: Poli Barfield on 04-13-2023 Monocytes/100 WBC (Bld) 4.6 % 0-10 [facility] Blood platelet mean volumeOr dered By: Poli Barfield on 04-13-2023 Platelet mean volume (Bld) [Entitic vol] 8.3 fL 6.2-12.0 [facility] Determination of erythrocyte mean corpuscular volume (MCV)Ordered By: Poli Barfield on 04-13-2023 MCV (RBC) [Entitic vol] 87.3 fL 81-99 [facility] Hematocrit Auto (Bld) [Volum e fraction]Ordered By: Poli Barfield on 04-13-2023 Hematocrit (Bld) [Volume fraction] 38.6 % 37-47 [facility] Laboratory - Chemistry and C hemistry - challengeOrdered By: Poli Barfield on 04-13-2023 ALP [Catalytic activity/Vol] 114 U/L 45-117 [facility] ALT [Catalytic activity/Vol] 23 U/L 13-56 [facility] CO2 [Moles/Vol] 24.0 mmol/L 21.0-32.0 [facility] Globulin (S) [Mass/Vol] 4.8 g/dL 2.2-4.2 [facility] Lipase [Catalytic activity/Vol] 98 U/L 13-75 [facility] Comment on above: Please note:LIPASE r evised reference range effective 22. New Lipase methodology. Expected to produce lower values than the previous assay method. NEW Reference Range: 13 - 75 U/L Urea nitrogen/Creatinine [Mass ratio] 9.4 mg/mg 10-20 [facility] Laboratory - Hematology and Cell countsOrdered By: Poli Barfield on 04-13-2023 Erythrocyte distribution width (RBC) [Entitic vol] 47.7 fL 35.1-43.9 [facility] Erythrocyte distribution width (RBC) [Ratio] 16.6 % 11.6-14.6 [facility] Immature granulocytes/100 WBC (Bld) 0.800 % 0.0-0.9 [facility] Comment on above: IG% - Immature Granu locytes (promyelocytes, myelocytes and metamyelocytes) > 1% indicates that a LEFT SHIFT is Present. MCH (RBC) [Entitic mass] 28.5 pg 27.0-32.0 [facility] Nucleated RBC/100 WBC (Bld) [Ratio] 0 % 0-5 [facility] MCHC Auto (RBC) [Mass/Vol]Or dered By: Poli Barfield on 04-13-2023 MCHC (RBC) [Mass/Vol] 32.6 g/dL 32-36 [facility] No Panel InformationOrdered By: Poli Barfield on 04-13-2023 Estimated Creatinine Clearance Calc 59.62 ml/min [facility] Estimated GFR (MDRD) Amer 63 mL/min >60 [facility] Comment on above: GFR Calc Estimated GFR (MDRD) Non-Af Amer 52 mL/min >60 [facility] Comment on above: Non- GFR Calc 28.5 pg 27.0-32.0 [facility] 16.6 % 11.6-14.6 [facility] 47.7 fl 35.1-43.9 [facility] 0.800 % 0.0-0.9 [facility] 0 % 0-5 [facility] 52 mL/min >60 [facility] 63 mL/min >60 [facility] 59.62 ml/min [facility] 9.4 RATIO 10-20 [facility] 4.8 g/dL 2.2-4.2 [facility] 98 U/L 13-75 [facility] 114 U/L 45-117 [facility] 23 U/L 13-56 [facility] 24.0 mmol/L 21.0-32.0 [facility] Platelets bldOrdered By: Devon Barfield on 04-13-2023 Platelets (Bld) [#/Vol] 542 10*3/uL 150-450 [facility] Serum or plasma albumin hussein urement (mass/volume)Ordered By: Poli Barfield on 04-13-2023 Albumin [Mass/Vol] 3.0 g/dL 3.2-5.0 [facility] Serum or plasma albumin/glob ulin mass ratioOrdered By: oPli Barfield on 04-13-2023 Albumin/Globulin [Mass ratio] 0.6 {ratio} 0.9-2.4 [facility] Serum or plasma calcium hussein urement (mass/volume)Ordered By: Poli Barfield on 04-13-2023 Calcium [Mass/Vol] 9.5 mg/dL 8.5-10.1 [facility] Serum or plasma creatinine m easurement (mass/volume)Ordered By: Poli Barfield on 04-13-2023 Creatinine [Mass/Vol] 1.28 mg/dL 0.55-1.02 [facility] Comment on above: The validity of the calculated GFR & GFRAA in patients over 70 years has not been determined. Clinical correlation is essential. Serum or plasma urea nitroge n measurement (mass/volume)Ordered By: Poli Barfield on 04-13-2023 Urea nitrogen [Mass/Vol] 12 mg/dL 7-18 [facility] Thin prep Papanicolaou smear with manual screeningOrdered By: Poli Barfield on 04-13-2023 Thin prep Papanicolaou smear with manual screening 17 U/L 15-37 [facility] Thin prep Papanicolaou smear with manual screening 8 5-15 [facility] Absolute lymphocyte countOrd ered By: Rickey Shepard on 03-06-2023 Lymphocytes Auto (Unsp spec) [#/Vol] 3.14 10*3/uL 0.83-4.51 [facility] Basophil percentageOrdered B y: Rickey Shepard on 03-06-2023 Basophil percentage 215 mg/dL 74-106 [facility] Basophil percentage 8.4 g/dL 6.4-8.2 [facility] Basophil percentage 0.50 mg/dL 0.20-1.00 [facility] Basophil percentage 134 mmol/L 136-145 [facility] Basophil percentage 3.1 mmol/L 3.5-5.1 [facility] Basophil percentage 101 mmol/L 98-107 [facility] Basophil percentage 2.2 mmol/L 0.4-2.0 [facility] Basophils (Bld) [#/Vol] 10.9 10*3/uL 4.4-11.0 [facility] Basophils (Bld) [#/Vol] 6.9 10*3/uL 2.0-7.7 [facility] Basophils/100 WBC (Bld) 62.8 % 47-70 [facility] Basophils/100 WBC (Bld) 0.2 % 0-5 [facility] Basophils/100 WBC (Bld) 0.4 % 0-1 [facility] Bilirubin [Mass/Vol] 0.50 mg/dL 0.20-1.00 [facility] Comment on above: For patients on eltr ombopag therapy, use of Dimension [place] TBIL is not recommended. Chloride [Moles/Vol] 101 mmol/L 98-107 [facility] Eosinophils/100 WBC (Bld) 0.2 % 0-5 [facility] Glucose [Mass/Vol] 215 mg/dL 74-106 [facility] Comment on above: Glucose result great er than or equal to 200 mg/dLsuggests DIABETES MELLITUS per A.D.A. criteria. Lactate [Moles/Vol] 2.2 mmol/L 0.4-2.0 [facility] Comment on above: Critical Result(s) C alled at: 09:58:40 03/06/2023 by: Gayathri Wells Results read back by same. Neutrophils (Bld) [#/Vol] 6.9 10*3/uL 2.0-7.7 [facility] Neutrophils/100 WBC (Bld) 62.8 % 47-70 [facility] Potassium [Moles/Vol] 3.1 mmol/L 3.5-5.1 [facility] Protein [Mass/Vol] 8.4 g/dL 6.4-8.2 [facility] Sodium [Moles/Vol] 134 mmol/L 136-145 [facility] WBC (Bld) [#/Vol] 10.9 10*3/uL 4.4-11.0 [facility] Basophil percentage 0 SEEN /hpf 0-5 [facility] Bilirubin Test strip Ql (U)O rdered By: Rickey Shepard on 03-06-2023 Bilirubin Ql (U) Negative Negative [facility] Blood erythrocytes count (nu mber/volume)Ordered By: Rickey Shepard on 03-06-2023 RBC (Bld) [#/Vol] 4.33 10*6/uL 4.2-5.4 [facility] Blood hemoglobin measurement (mass/volume)Ordered By: Rickey Shepard on 03-06-2023 Hemoglobin (Bld) [Mass/Vol] 11.5 g/dL 12.0-15.0 [facility] Blood lymphocytes/100 leukoc ytesOrdered By: Rickey Shepard on 03-06-2023 Lymphocytes/100 WBC (Bld) 28.8 % 19-41 [facility] Blood monocytes/100 leukocyt esOrdered By: Rickey Shepard on 03-06-2023 Monocytes/100 WBC (Bld) 7.2 % 0-10 [facility] Blood platelet mean volumeOr dered By: Rickey Shepard on 03-06-2023 Platelet mean volume (Bld) [Entitic vol] 9.2 fL 6.2-12.0 [facility] Determination of erythrocyte mean corpuscular volume (MCV)Ordered By: Rickey Shepard on 03-06-2023 MCV (RBC) [Entitic vol] 82.7 fL 81-99 [facility] Hematocrit Auto (Bld) [Volum e fraction]Ordered By: Riceky Shepard on 03-06-2023 Hematocrit (Bld) [Volume fraction] 35.8 % 37-47 [facility] INR in Blood by Coagulation assayOrdered By: Rickey Shepard on 03-06-2023 INR Coag (Bld) [Relative time] 1.2 {INR} [facility] Ketones Test strip Ql (U)Ord ered By: Rickey Shepard on 03-06-2023 Ketones Ql (U) Negative Negative [facility] Laboratory - Chemistry and C hemistry - challengeOrdered By: Rickey Shepard on 03-06-2023 ALP [Catalytic activity/Vol] 109 U/L 45-117 [facility] ALT [Catalytic activity/Vol] 13 U/L 13-56 [facility] CO2 [Moles/Vol] 25.0 mmol/L 21.0-32.0 [facility] Globulin (S) [Mass/Vol] 5.2 g/dL 2.2-4.2 [facility] Lipase [Catalytic activity/Vol] 59 U/L 13-75 [facility] Comment on above: Please note:LIPASE r evised reference range effective 22. New Lipase methodology. Expected to produce lower values than the previous assay method. NEW Reference Range: 13 - 75 U/L Urea nitrogen/Creatinine [Mass ratio] 4.0 mg/mg 10-20 [facility] Laboratory - CoagulationOrde red By: Rickey Shepard on 03-06-2023 aPTT Coag (Bld) [Time] 28.8 s 24.1-36.2 [facility] PT Coag (PPP) [Time] 14.8 s 11.7-14.9 [facility] Laboratory - Hematology and Cell countsOrdered By: Rickey Shepard on 03-06-2023 Erythrocyte distribution width (RBC) [Entitic vol] 41.1 fL 35.1-43.9 [facility] Erythrocyte distribution width (RBC) [Ratio] 13.6 % 11.6-14.6 [facility] Immature granulocytes/100 WBC (Bld) 0.600 % 0.0-0.9 [facility] Comment on above: IG% - Immature Granu locytes (promyelocytes, myelocytes and metamyelocytes) > 1% indicates that a LEFT SHIFT is Present. MCH (RBC) [Entitic mass] 26.6 pg 27.0-32.0 [facility] Nucleated RBC/100 WBC (Bld) [Ratio] 0 % 0-5 [facility] MCHC Auto (RBC) [Mass/Vol]Or dered By: Rickey Shepard on 03-06-2023 MCHC (RBC) [Mass/Vol] 32.1 g/dL 32-36 [facility] Mucus LM Ql (Urine sed)Order ed By: Rickey Shepard on 03-06-2023 Mucus Ql (Urine sed) 0 SEEN /hpf [facility] Nitrite Test strip Ql (U)Ord ered By: Rickey Shepard on 03-06-2023 Nitrite Ql (U) Negative Negative [facility] No Panel InformationOrdered By: Rickey Shepard on 03-06-2023 Estimated Creatinine Clearance Calc 75.55 ml/min [facility] Estimated GFR (MDRD) Amer 82 mL/min >60 [facility] Comment on above: GFR Calc Estimated GFR (MDRD) Non-Af Amer 68 mL/min >60 [facility] Comment on above: Non- GFR Calc 26.6 pg 27.0-32.0 [facility] 13.6 % 11.6-14.6 [facility] 41.1 fl 35.1-43.9 [facility] 0.600 % 0.0-0.9 [facility] 0 % 0-5 [facility] 14.8 SECONDS 11.7-14.9 [facility] 28.8 Seconds 24.1-36.2 [facility] 68 mL/min >60 [facility] 82 mL/min >60 [facility] 75.55 ml/min [facility] 4.0 RATIO 10-20 [facility] 5.2 g/dL 2.2-4.2 [facility] 59 U/L 13-75 [facility] 109 U/L 45-117 [facility] 13 U/L 13-56 [facility] 25.0 mmol/L 21.0-32.0 [facility] Platelets bldOrdered By: Ivy Shepard on 03-06-2023 Platelets (Bld) [#/Vol] 412 10*3/uL 150-450 [facility] Protein Test strip Ql (U)Ord ered By: Rickey Shepard on 03-06-2023 Protein Ql (U) 30 mg/dl Negative [facility] Serum or plasma acetone hussein urement (mass/volume)Ordered By: Rickey Shepard on 03-06-2023 Acetone [Mass/Vol] Negative NEG [facility] Serum or plasma albumin hussein urement (mass/volume)Ordered By: Rickey Shepard on 03-06-2023 Albumin [Mass/Vol] 3.2 g/dL 3.2-5.0 [facility] Serum or plasma albumin/glob ulin mass ratioOrdered By: Rickey Shepard on 03-06-2023 Albumin/Globulin [Mass ratio] 0.6 {ratio} 0.9-2.4 [facility] Serum or plasma calcium hussein urement (mass/volume)Ordered By: Rickey Shepard on 03-06-2023 Calcium [Mass/Vol] 9.3 mg/dL 8.5-10.1 [facility] Serum or plasma creatinine m easurement (mass/volume)Ordered By: Rickey Shepard on 03-06-2023 Creatinine [Mass/Vol] 1.01 mg/dL 0.55-1.02 [facility] Comment on above: The validity of the calculated GFR & GFRAA in patients over 70 years has not been determined. Clinical correlation is essential. Serum or plasma urea nitroge n measurement (mass/volume)Ordered By: Rickey Shepard on 03-06-2023 Urea nitrogen [Mass/Vol] 4 mg/dL 7-18 [facility] Squamous epithelial cells de tection in urine sediment by light microscopyOrdered By: Rickey Shepard on 03-06-2023 Epithelial cells.squamous LM Ql (Urine sed) 0-5 SEEN /hpf 5-10 [facility] Thin prep Papanicolaou smear with manual screeningOrdered By: Rickey Shepard on 03-06-2023 Thin prep Papanicolaou smear with manual screening 7 U/L 15-37 [facility] Thin prep Papanicolaou smear with manual screening 8 5-15 [facility] Urine blood detectionOrdered By: Rickey Shepard on 03-06-2023 RBC Ql (U) 10 /ul Negative [facility] RBC Ql (U) 0 SEEN /hpf 0-5 [facility] Urine clarityOrdered By: Ivy Shepard on 03-06-2023 Clarity (U) Clear Clear [facility] Urine color determinationOrd ered By: Rickey Shepard on 03-06-2023 Color (U) Yellow Yellow [facility] Urine glucose detectionOrder ed By: Rickey Shepard on 03-06-2023 Glucose Ql (U) 100 mg/dl Normal [facility] Urine leukocyte esterase det ection by dipstickOrdered By: Rickey Shepard on 03-06-2023 Leukocyte esterase Test strip Ql (U) 25 /ul Negative [facility] Urine pHOrdered By: Rickey webb on 03-06-2023 pH (U) 7.0 [pH] 5.0 - 8.0 [facility] Urine sediment bacteria coun t by microscopy (number/high power field)Ordered By: Rickey Shepard on 03-06-2023 Bacteria LM.HPF (Urine sed) [#/Area] RARE /hpf None Seen [facility] Urine specific gravity measu rementOrdered By: Rickey Shepard on 03-06-2023 Specific gravity (U) [Rel density] 1.010 1.002-1.030 [facility] Urobilinogen Auto test strip Ql (U)Ordered By: Rickey Shepard on 03-06-2023 Urobilinogen Ql (U) Normal mg/dl Normal [facility] Basic metabolic 2000 panelon 03-04-2023 Anion gap [Moles/Vol] 14 mmol/L Normal 9-18 [facility] Comment on above: Order Comment: Speci men Type: BLOOD SPECIMENOrdering Facility: [facility] Address: [address] [place] [address] [place] [address] Performed By: #### 2 4321-2 ####[facility] LABORATORYCLIA [id number] [place] [address] [place] Calcium [Mass/Vol] 8.9 mg/dL Normal 8.5-10.2 [facility] Comment on above: Order Comment: Speci men Type: BLOOD SPECIMENOrdering Facility: [facility] Address: [address] [place] [address] Performed By: #### 2 4321-2 ####[facility] LABORATORYCLIA [id number] [place] [address] [place] Chloride [Moles/Vol] 102 mmol/L Normal 97-105 [facility] Comment on above: Order Comment: Speci men Type: BLOOD SPECIMENOrdering Facility: [facility] Address: [address] [place] [address] Performed By: #### 2 4321-2 ####[facility] LABORATORYCLIA [id number] [place] [address] [place] CO2 [Moles/Vol] 21 mmol/L Low 22-30 [facility] Comment on above: Order Comment: Speci men Type: BLOOD SPECIMENOrdering Facility: [facility] Address: [address] [place] [address] Performed By: #### 2 4321-2 ####[facility] LABORATORYCLIA [id number] [place] [address] [place] Creatinine [Mass/Vol] 0.78 mg/dL Normal 0.58-0.96 [facility] Comment on above: Order Comment: Speci men Type: BLOOD SPECIMENOrdering Facility: [facility] Address: [address] [place] [address] Performed By: #### 2 4321-2 ####[facility] LABORATORYCLIA [id number] [place] [address] [place] Creatinine and Glomerular filtration rate.predicted panel (S/P/Bld) 104 mL/min/1.73m??? Normal >=60 [facility] Comment on above: Order Comment: Mahogany vargas Type: BLOOD SPECIMENOrdering Facility: [facility] Address: [address] [place] [address] Result Comment: Samreen mated Glomerular Filtration Rate [...] actual GFR. Performed By: #### 2 4321-2 ####[facility] LABORATORYCLIA [id number] [place] [address] [place] Glucose [Mass/Vol] 158 mg/dL High 74-99 [facility] Comment on above: Order Comment: Mahogany vargas Type: BLOOD SPECIMENOrdering Facility: [facility] Address: [address] [place] [address] Result Comment: The [place] Diabetes Association (ADA) provides guidance for cutoff [...] Standards of Medical Care in Diabetes 2016, [place] [employer]. Diabetes Care. 2016.39(Suppl 1). Performed By: #### 2 4321-2 ####[facility] LABORATORYCLIA [id number] [place] [address] [place] Potassium [Moles/Vol] 3.3 mmol/L Low 3.7-5.1 [facility] Comment on above: Order Comment: Mahogany vargas Type: BLOOD SPECIMENOrdering Facility: [facility] Address: [address] [place] [place] [address] Performed By: #### 2 4321-2 ####[facility] LABORATORYCLIA [id number] [place] [address] [place] Sodium [Moles/Vol] 137 mmol/L Normal 136-144 [facility] Comment on above: Order Comment: Speci men Type: BLOOD SPECIMENOrdering Facility: [facility] Address: [address] [address] Performed By: #### 2 4321-2 ####[facility] LABORATORYCLIA [id number] [place] [address] [place] Urea nitrogen [Mass/Vol] 4 mg/dL Low 7-21 [facility] Comment on above: Order Comment: Speci men Type: BLOOD SPECIMENOrdering Facility: [facility] Address: [address] [place] [address] Performed By: #### 2 4321-2 ####[facility] LABORATORYCLIA [id number] [place] [address] [place] CBC panel Auto (Bld)on 03-04 Erythrocyte distribution width (RBC) [Ratio] 13.5 % Normal 11.5-15.0 [facility] Comment on above: Order Comment: Speci men Type: BLOOD SPECIMENOrdering Facility: [facility] Address: [address] [place] [address] Performed By: #### 5 8410-2 ####[facility] LABORATORYCLIA [id number] [place] [address] [place] Hematocrit (Bld) [Volume fraction] 34.2 % Low 36.0-46.0 [facility] Comment on above: Order Comment: Speci men Type: BLOOD SPECIMENOrdering Facility: [facility] Address: [address] [place] [address] Performed By: #### 5 8410-2 ####[facility] LABORATORYCLIA [id number] [address] [place] Hemoglobin (Bld) [Mass/Vol] 11.5 g/dL Normal 11.5-15.5 [facility] Comment on above: Order Comment: Speci men Type: BLOOD SPECIMENOrdering Facility: [facility] Address: [address] [address] Performed By: #### 5 8410-2 ####[facility] LABORATORYCLIA [id number] [address] MCH (RBC) [Entitic mass] 27.4 pg Normal 26.0-34.0 [facility] Comment on above: Order Comment: Speci men Type: BLOOD SPECIMENOrdering Facility: [facility] Address: [address] [place] [address] Performed By: #### 5 8410-2 ####[facility] LABORATORYCLIA [id number] [address] [place] [facility] MCHC (RBC) [Mass/Vol] 33.6 g/dL Normal 30.5-36.0 [facility] Comment on above: Order Comment: Speci men Type: BLOOD SPECIMENOrdering Facility: [facility] Address: [address] [place] [address] Performed By: #### 5 8410-2 ####[facility] LABORATORYCLIA [id number] [address] [place] MCV (RBC) [Entitic vol] 81.6 fL Normal 80.0-100.0 [facility] Comment on above: Order Comment: Speci men Type: BLOOD SPECIMENOrdering Facility: [facility] Address: [address] [place] [address] Performed By: #### 5 8410-2 ####[facility] LABORATORYCLIA [id number] [address] [place] Nucleated RBC (Bld) [#/Vol] 10*3/uL Normal <0.01 [facility] Comment on above: Order Comment: Speci men Type: BLOOD SPECIMENOrdering Facility: [facility] Address: [address] [place] [address] Performed By: #### 5 8410-2 ####[facility] LABORATORYCLIA [id number] [place] [address] [place] Platelet mean volume (Bld) [Entitic vol] 9.3 fL Normal 9.0-12.7 [facility] Comment on above: Order Comment: Speci men Type: BLOOD SPECIMENOrdering Facility: [facility] Address: [address] [place] [address] Performed By: #### 5 8410-2 ####[facility] LABORATORYCLIA [id number] [place] [address] [place] Platelets (Bld) [#/Vol] 362 10*3/uL Normal 150-400 [facility] Comment on above: Order Comment: Speci men Type: BLOOD SPECIMENOrdering Facility: [facility] Address: [address] [place] [address] Performed By: #### 5 8410-2 ####[facility] LABORATORYCLIA [id number] [place] [address] [place] RBC (Bld) [#/Vol] 4.19 10*6/uL Normal 3.90-5.20 [facility] Comment on above: Order Comment: Speci men Type: BLOOD SPECIMENOrdering Facility: [facility] Address: [address] [place] [address] Performed By: #### 5 8410-2 ####[facility] LABORATORYCLIA [id number] [place] [address] [place] WBC (Bld) [#/Vol] 10.19 10*3/uL Normal 3.70-11.00 [facility] Comment on above: Order Comment: Speci men Type: BLOOD SPECIMENOrdering Facility: [facility] Address: [address] [place] [address] Performed By: #### 5 8410-2 ####[facility] LABORATORYCLIA [id number] [place] [address] [place] CNDSon 03-04-2023 CNDS HNO ID: [id number] Author: Saida Lopez MD Service: ? Author Type: Physician Type: Discharge Summary Filed: 03/05/2023 12:41 PM Note Text: DISCHARGE SUMMARY PATIENT NAME: Ghislaine Givens Code Status: Prior Admission Information Admission Information ADMIT DATE: 03/01/2023 DISCHARGE DATE: 03/04/2023 MY DOCTORS AND MEDICAL TEAM: My Main Hospital Doctor: Saida Lopez MD Primary Care Provider: Amy Solorzano NP My Medical Team Members: Treatment Team: Attending Provider: aSida Lopez MD Consulting: Cayetano Tai MD MY [...] office evaluation. She was not evaluated by dogman/woman. Vomiting too frequent to count and constant [...] was prescribed stool softeners and laxatives during [facility] stay however she refuses to take [...] Plan to discharge in AM. Discussed with hospice social worker/director case. Advance diet. PLAN 03/04/23: Hemodynamically is stable. Has been walking a lot. Gets anxious. Seen by psych and GI. Discussed with hospice social worker/director case. OK to discharge the patient. Rest of management as outpatient. I personally spent more than 30 minutes for discharge of this patient. Discussed with unit PA/EXTRUSION DIE COORDINATOR about care plans. Recommended to see her psychiatrist as outpatient. Has had high BP readings. Will add Losartan. Is diabetic too.. Vitals and labs were closely monitored and evaluated while hospitalized. Electrolytes were replaced as needed. Patient is stable for discharge home today. Patient should follow up with primary care physician (Amy Solorzano: [phone]) in 7-10 days for hospital follow up. Attending physician to follow up with full discharge summary. OTHER PROBLEMS/DIAGNOSIS: Principal Problem: Intractable nausea and vomiting Active Problems: DM2 (diabetes mellitus, type 2) (HCC) HLD (hyperlipidemia) Obesity, Class I, BMI 30-34.9 Abdominal pain Constipation Anxiety and depression Borderline personality disorder (HCC) Resolved Problems: * No resolved hospital problems. * OPERATIONS PERFORMED WHILE IN THE HOSPITAL: None IMPORTANT TEST/PROCEDURES: CT Scan EKG Xray, Gastric Emptying Study TEST RESULTS NOT AVAILABLE AT THIS TIME: No pending results Discharge Disposition Home/Self Care A (more content not included)... Normal [facility] NURSING PROGon 03-04-2023 NURSING PROG HNO ID: [id number] Author: Shiloh Carl, RYNE Service: Nursing Author Type: Registered Nurse Type: [...] given. Pt left stable. Due care given. [facility] NURSING PROG HNO ID: [id number] Author: Hilda Dunlap RN Service: ? Author Type: Registered Nurse Type: Nursing Progress Note Filed: 03/04/2023 3:31 PM Note Text: 0725: Assumed patient care at this time. Safety maintained. 1600: Discharge instructions completed at this time. IV removed. Safety maintained. Belongings with patient. Patient has no needs at this time. [facility] Basic metabolic 2000 panelon 03-03-2023 Anion gap [Moles/Vol] 12 mmol/L Normal 9-18 [facility] Comment on above: Order Comment: Speci men Type: BLOOD SPECIMENOrdering Facility: [facility] Address: [address] [place] [address] Performed By: #### 2 4321-2 ####[facility] LABORATORYCLIA [id number] [place] [address] [place] Calcium [Mass/Vol] 9.3 mg/dL Normal 8.5-10.2 [facility] Comment on above: Order Comment: Speci men Type: BLOOD SPECIMENOrdering Facility: [facility] Address: [address] [place] [address] Performed By: #### 2 4321-2 ####[facility] LABORATORYCLIA [id number] [place] [address] [place] Chloride [Moles/Vol] 103 mmol/L Normal 97-105 [facility] Comment on above: Order Comment: Speci men Type: BLOOD SPECIMENOrdering Facility: [facility] Address: [address] [address] Performed By: #### 2 4321-2 ####[facility] LABORATORYCLIA [id number] [place] [address] [place] CO2 [Moles/Vol] 24 mmol/L Normal 22-30 [facility] Comment on above: Order Comment: Speci men Type: BLOOD SPECIMENOrdering Facility: [facility] Address: [address] [address] Performed By: #### 2 4321-2 ####[facility] LABORATORYCLIA [id number] [place] [address] [place] Creatinine [Mass/Vol] 0.87 mg/dL Normal 0.58-0.96 [facility] Comment on above: Order Comment: Speci men Type: BLOOD SPECIMENOrdering Facility: [facility] Address: [address] [place] [address] Performed By: #### 2 4321-2 ####[facility] LABORATORYCLIA [id number] [place] [address] [place] Creatinine and Glomerular filtration rate.predicted panel (S/P/Bld) 91 mL/min/1.73m??? Normal >=60 [facility] Comment on above: Order Comment: Speci men Type: BLOOD SPECIMENOrdering Facility: [facility] Address: [address] [place] [address] Result Comment: Samreen mated Glomerular Filtration Rate [...] actual GFR. Performed By: #### 2 4321-2 ####[facility] LABORATORYCLIA [id number] [place] [id number] [place] Glucose [Mass/Vol] 137 mg/dL High 74-99 [facility] Comment on above: Order Comment: Mahogany vargas Type: BLOOD SPECIMENOrdering Facility: [facility] Address: [address] [place] [address] Result Comment: The [place] Diabetes Association (ADA) provides guidance for cutoff [...] Standards of Medical Care in Diabetes 2016, [place] [employer]. Diabetes Care. 2016.39(Suppl 1). Performed By: #### 2 4321-2 ####[facility] LABORATORYCLIA [id number] [place] [address] [place] Potassium [Moles/Vol] 3.5 mmol/L Low 3.7-5.1 [facility] Comment on above: Order Comment: Mahogany vargas Type: BLOOD SPECIMENOrdering Facility: [facility] Address: [address] [place] [address] Performed By: #### 2 4321-2 ####[facility] LABORATORYCLIA [id number] [place] [address] [place] Sodium [Moles/Vol] 139 mmol/L Normal 136-144 [facility] Comment on above: Order Comment: Mahogany vargas Type: BLOOD SPECIMENOrdering Facility: [facility] Address: [address] [place] [address] Performed By: #### 2 4321-2 ####[facility] LABORATORYCLIA [id number] [place] [address] [place] Urea nitrogen [Mass/Vol] 6 mg/dL Low 7-21 [facility] Comment on above: Order Comment: Timuri men Type: BLOOD SPECIMENOrdering Facility: [facility] Address: [address] [address] Performed By: #### 2 4321-2 ####[facility] LABORATORYCLIA [id number] [address] [place] CBC panel Auto (Bld)on 03-03 Erythrocyte distribution width (RBC) [Ratio] 13.2 % Normal 11.5-15.0 [facility] Comment on above: Order Comment: Speci men Type: BLOOD SPECIMENOrdering Facility: [facility] Address: [address] [place] [address] Performed By: #### 5 8410-2 ####[facility] LABORATORYCLIA [id number] [address] [place] [facility] Hematocrit (Bld) [Volume fraction] 36.1 % Normal 36.0-46.0 [facility] Comment on above: Order Comment: Speci men Type: BLOOD SPECIMENOrdering Facility: [facility] Address: [address] [place] [address] Performed By: #### 5 8410-2 ####[facility] LABORATORYCLIA [id number] [address] [place] Hemoglobin (Bld) [Mass/Vol] 12.2 g/dL Normal 11.5-15.5 [facility] Comment on above: Order Comment: Speci men Type: BLOOD SPECIMENOrdering Facility: [facility] Address: [address] [place] [address] Performed By: #### 5 8410-2 ####[facility] LABORATORYCLIA [id number] [address] [place] MCH (RBC) [Entitic mass] 27.4 pg Normal 26.0-34.0 [facility] Comment on above: Order Comment: Speci men Type: BLOOD SPECIMENOrdering Facility: [facility] Address: [address] [place] [address] Performed By: #### 5 8410-2 ####[facility] LABORATORYCLIA [id number] [place] [address] [place] MCHC (RBC) [Mass/Vol] 33.8 g/dL Normal 30.5-36.0 [facility] Comment on above: Order Comment: Speci men Type: BLOOD SPECIMENOrdering Facility: [facility] Address: [address] [place] [address] Performed By: #### 5 8410-2 ####[facility] LABORATORYCLIA [id number] [place] [address] [place] MCV (RBC) [Entitic vol] 81.1 fL Normal 80.0-100.0 [facility] Comment on above: Order Comment: Speci men Type: BLOOD SPECIMENOrdering Facility: [facility] Address: [address] [place] [address] Performed By: #### 5 8410-2 ####[facility] LABORATORYCLIA [id number] [place] [address] [place] Nucleated RBC (Bld) [#/Vol] 10*3/uL Normal <0.01 [facility] Comment on above: Order Comment: Speci men Type: BLOOD SPECIMENOrdering Facility: [facility] Address: [address] [place] [address] Performed By: #### 5 8410-2 ####[facility] LABORATORYCLIA [id number] [place] [address] [place] Platelet mean volume (Bld) [Entitic vol] 9.0 fL Normal 9.0-12.7 [facility] Comment on above: Order Comment: Speci men Type: BLOOD SPECIMENOrdering Facility: [facility] Address: [address] [place] [address] Performed By: #### 5 8410-2 ####[facility] LABORATORYCLIA [id number] [place] [address] [place] Platelets (Bld) [#/Vol] 397 10*3/uL Normal 150-400 [facility] Comment on above: Order Comment: Speci men Type: BLOOD SPECIMENOrdering Facility: [facility] Address: [address] [place] [address], [place] [address] Performed By: #### 5 8410-2 ####[facility] LABORATORYCLIA [id number] [place] [id number] [facility] RBC (Bld) [#/Vol] 4.45 10*6/uL Normal 3.90-5.20 [facility] Comment on above: Order Comment: Speci men Type: BLOOD SPECIMENOrdering Facility: [facility] Address: [address] Performed By: #### 5 8410-2 ####[facility] LABORATORYCLIA [id number] [place] [id number] [facility] WBC (Bld) [#/Vol] 13.15 10*3/uL High 3.70-11.00 [facility] Comment on above: Order Comment: Speci men Type: BLOOD SPECIMENOrdering Facility: [facility] Address: [address] [address] Performed By: #### 5 8410-2 ####[facility] LABORATORYCLIA [id number] [place] [id number] [facility] CONSULTon 03-03-2023 CONSULT HNO ID: [id number] Author: Cayetano Tai MD Service: Psychiatry Author [...] admitted with intractable vomiting. She is from [place], [place] and was in [place] for a GI appointment and was sent [...] DATE: March 03, 2023 TIME: 3:03 PM [facility] CT ABD/PEL W IVCONon 023 CT ABD/PEL W IVCON * * *Final Report* * * DATE OF EXAM: Mar 03 2023 11:01AM [facility] [place] ABD/PEL W IVCON / [...] on Mar 03 2023 11:11AM EST [id number] Normal [facility] NURSING PROGon 03-03-2023 NURSING PROG HNO ID: [id number] Author: Anayeli Blue RN Service: PICC Team [...] 03, 2023 TIME: 10:46 AM PAGER/CONTACT #: [phone] [facility] NURSING PROG HNO ID: [id number] Author: Hilda Dunlap RN Service: ? Author [...] GI to come assess patient at bedside. [facility] ALLIED HEALTHon 03-02-2023 ALLIED HEALTH HNO ID: [id number] Author: Omari Juan RT(R) Service: Radiology Author [...] PERIPHERAL IV DATA: Not applicable SIGNED BY: Valentina Loo, RT(R) March 02, 2023 5:12 PM Normal [facility] Basic metabolic 2000 panelon 03-02-2023 Anion gap [Moles/Vol] 12 mmol/L Normal 9-18 [facility] Comment on above: Order Comment: Speci men Type: BLOOD SPECIMENOrdering Facility: [facility] Address: [address] [place] [address] Performed By: #### 2 4321-2 ####[facility] LABORATORYCLIA [id number] [place] [address] [place] Calcium [Mass/Vol] 8.9 mg/dL Normal 8.5-10.2 [facility] Comment on above: Order Comment: Speci men Type: BLOOD SPECIMENOrdering Facility: [facility] Address: [address] [place] [address] Performed By: #### 2 4321-2 ####[facility] LABORATORYCLIA [id number] [place] [address] [place] Chloride [Moles/Vol] 102 mmol/L Normal 97-105 [facility] Comment on above: Order Comment: Speci men Type: BLOOD SPECIMENOrdering Facility: [facility] Address: [address] [place] [address] Performed By: #### 2 4321-2 ####[facility] LABORATORYCLIA [id number] [place] [address] [place] CO2 [Moles/Vol] 26 mmol/L Normal 22-30 [facility] Comment on above: Order Comment: Speci men Type: BLOOD SPECIMENOrdering Facility: [facility] Address: [address] [place] [address], [place] [address] Performed By: #### 2 4321-2 ####[facility] LABORATORYCLIA [id number] [place] [id number] [place] Creatinine [Mass/Vol] 0.92 mg/dL Normal 0.58-0.96 [facility] Comment on above: Order Comment: Speci men Type: BLOOD SPECIMENOrdering Facility: [facility] Address: [address] [place] [address] Performed By: #### 2 4321-2 ####[facility] LABORATORYCLIA [id number] [place] [address] [place] Creatinine and Glomerular filtration rate.predicted panel (S/P/Bld) 86 mL/min/1.73m??? Normal >=60 [facility] Comment on above: Order Comment: Timuri alicia Type: BLOOD SPECIMENOrdering Facility: [facility] Address: [address] [address] Result Comment: Samreen mated Glomerular Filtration Rate [...] actual GFR. Performed By: #### 2 4321-2 ####[facility] LABORATORYCLIA [id number] [place] [id number] [place] Glucose [Mass/Vol] 162 mg/dL High 74-99 [facility] Comment on above: Order Comment: Timuri men Type: BLOOD SPECIMENOrdering Facility: [facility] Address: [address] [address] Result Comment: The [place] Diabetes Association (ADA) provides guidance for cutoff [...] Standards of Medical Care in Diabetes 2016, [place] [employer]. Diabetes Care. 2016.39(Suppl 1). Performed By: #### 2 4321-2 ####[facility] LABORATORYCLIA [id number] [place] [address] [place] Potassium [Moles/Vol] 3.7 mmol/L Normal 3.7-5.1 [facility] Comment on above: Order Comment: Mahogany vargas Type: BLOOD SPECIMENOrdering Facility: [facility] Address: [address] [place] [address] Performed By: #### 2 4321-2 ####[facility] LABORATORYCLIA [id number] [place] [address] [place] Sodium [Moles/Vol] 140 mmol/L Normal 136-144 [facility] Comment on above: Order Comment: Mahogany vargas Type: BLOOD SPECIMENOrdering Facility: [facility] Address: [address] [place] [address] Performed By: #### 2 4321-2 ####[facility] LABORATORYCLIA [id number] [place] [address] [place] Urea nitrogen [Mass/Vol] 8 mg/dL Normal 7-21 [facility] Comment on above: Order Comment: Mahogany vargas Type: BLOOD SPECIMENOrdering Facility: [facility] Address: [address] [address] Performed By: #### 2 4321-2 ####[facility] LABORATORYCLIA [id number] [place] [address] [place] CBC panel Auto (Bld)on 03-02 Erythrocyte distribution width (RBC) [Ratio] 13.4 % Normal 11.5-15.0 [facility] Comment on above: Order Comment: Mahogany vargas Type: BLOOD SPECIMENOrdering Facility: [facility] Address: [address] [place] [address] Performed By: #### 5 8410-2 ####[facility] LABORATORYCLIA [id number] [place] [address] [place] Hematocrit (Bld) [Volume fraction] 34.1 % Low 36.0-46.0 [facility] Comment on above: Order Comment: Speci men Type: BLOOD SPECIMENOrdering Facility: [facility] Address: [address] [place] [address] Performed By: #### 5 8410-2 ####[facility] LABORATORYCLIA [id number] [place] [address] [place] Hemoglobin (Bld) [Mass/Vol] 11.3 g/dL Low 11.5-15.5 [facility] Comment on above: Order Comment: Speci men Type: BLOOD SPECIMENOrdering Facility: [facility] Address: [address] [place] [address] Performed By: #### 5 8410-2 ####[facility] LABORATORYCLIA [id number] [place] [address] [place] MCH (RBC) [Entitic mass] 27.2 pg Normal 26.0-34.0 [facility] Comment on above: Order Comment: Speci men Type: BLOOD SPECIMENOrdering Facility: [facility] Address: [address] [place] [address] Performed By: #### 5 8410-2 ####[facility] LABORATORYCLIA [id number] [place] [address] [place] MCHC (RBC) [Mass/Vol] 33.1 g/dL Normal 30.5-36.0 [facility] Comment on above: Order Comment: Speci men Type: BLOOD SPECIMENOrdering Facility: [facility] Address: [address] [place] [address] Performed By: #### 5 8410-2 ####[facility] LABORATORYCLIA [id number] [place] [address] [place] MCV (RBC) [Entitic vol] 82.2 fL Normal 80.0-100.0 [facility] Comment on above: Order Comment: Speci men Type: BLOOD SPECIMENOrdering Facility: [facility] Address: [address] [place] [address] Performed By: #### 5 8410-2 ####[facility] LABORATORYCLIA [id number] [place] [address] [place] Nucleated RBC (Bld) [#/Vol] 10*3/uL Normal <0.01 [facility] Comment on above: Order Comment: Speci men Type: BLOOD SPECIMENOrdering Facility: [facility] Address: [address] [place] [address] Performed By: #### 5 8410-2 ####[facility] LABORATORYCLIA [id number] [place] [address] [place] Platelet mean volume (Bld) [Entitic vol] 9.4 fL Normal 9.0-12.7 [facility] Comment on above: Order Comment: Speci men Type: BLOOD SPECIMENOrdering Facility: [facility] Address: [address] [place] [address] Performed By: #### 5 8410-2 ####[facility] LABORATORYCLIA [id number] [place] [address] [place] Platelets (Bld) [#/Vol] 374 10*3/uL Normal 150-400 [facility] Comment on above: Order Comment: Speci men Type: BLOOD SPECIMENOrdering Facility: [facility] Address: [address] [address] Performed By: #### 5 8410-2 ####[facility] LABORATORYCLIA [id number] [place] [address] [place] RBC (Bld) [#/Vol] 4.15 10*6/uL Normal 3.90-5.20 [facility] Comment on above: Order Comment: Speci men Type: BLOOD SPECIMENOrdering Facility: [facility] Address: [address] [place] [address] Performed By: #### 5 8410-2 ####[facility] LABORATORYCLIA [id number] [place] [id number] [place] WBC (Bld) [#/Vol] 9.29 10*3/uL Normal 3.70-11.00 [facility] Comment on above: Order Comment: Speci men Type: BLOOD SPECIMENOrdering Facility: [facility] Address: [place] [address] Performed By: #### 5 8410-2 ####[facility] LABORATORYCLIA [id number] [place] [id number] [facility] Neha 03-02-2023 CNPN Telephone (SPPRAD) GHISLAINE GIVENS ([id number]) 1990 F U[place] Date Time Provider Department [...] Allergies) Date Reviewed: 03/02/2023 Reviewed by: Ghislaine Mancilla, RYNE - Fully Assessed Reason for Visit: Appointment [186] Primary Visit Diagnosis:Nausea [R11.0] Order(s):NM GASTRIC EMPTYING SOLID [[id number]] Order #: [id number] FUTURE Prescriptions as of 01/31/2024 - acetaminophen [...] type 2) (HCC) [E11.9] 03/16/2013 Elevated BP [QEP2506] 04/28/2013 11/27/2013 HLD (hyperlipidemia) [E78.5] 11/27/2013 Tobacco use disorder [F17.200] 11/27/2013 Obesity, Class I, BMI 30-34.9 [E66.9] 02/18/2023 Intractable nausea and vomiting [R11.2] 02/18/2023 Severe protein-calorie malnutrition (HCC) [E43] 02/19/2023 Abdominal pain [R10.9] 03/01/2023 Constipation [K59.00] 03/02/2023 Anxiety and depression [F41.9, F32.A] 03/02/2023 Borderline personality disorder (HCC) [F60.3] 03/02/2023 Encounter Status:Closed by ALMITA KELLY on 01/31/24 [facility] CONSULTon 03-02-2023 CONSULT HNO ID: [id number] Author: Gen Bradford MD Service: Gastroenterology Author Type: Physician Type: Consults Filed: 03/02/2023 5:20 PM Note Text: [facility] [place] STAFF PHYSICIAN NOTE OF PERSONAL INVOLVEMENT IN [...] 02, 2023 Patient: Ghislaine Givens Medical Record: [id number] Reason for Consult: Abdominal pain, vomiting Requesting Service: GIM Consultation requested by Dr. Saida Lopez for an opinion regarding abdominal pain, [...] mild gastritis and an esophageal ulcer at [facility]. She was escorted down from Dr. [...] as directed. Patient (more content not included)... [facility] HISTORY PHYSICALon 3 HISTORY PHYSICAL HNO ID: [id number] Author: Saida Lopez MD Service: ? Author Type: Physician [...] outpatient. 4. DM2 (diabetes mellitus, type 2) ([facility]) POA: Yes Monitor blood sugars closely. Use [...] office evaluation. She was not evaluated by dogman/woman. Vomiting too frequent to count and constant [...] was prescribed stool softeners and laxatives during [facility] stay however she refuses to take them because she feels they worsen abdominal pain. She was also prescribed narcotic pain medication for home which she states she has been taking. PAST MEDICAL HISTORY: PAST MEDICAL HISTORY Diagnosis Date Bipolar 1 disorder (HCC) 2007 Depression Diabetes mellitus (HCC) Elevated BP 04/28/2013 Insomnia PAST SURGICAL HISTORY: [...] daily bef (more content not included)... Normal [facility] XR ABDOMEN 1V SUPINEon 03-02 XR [...] on Mar 02 2023 5:24PM EST [id number] [facility] CBC W Auto Differential pane l (Bld)on 03-01-2023 Basophils (Bld) [#/Vol] 0.04 10*3/uL Normal <0.11 [facility] Comment on above: Order Comment: Speci men Type: BLOOD SPECIMENOrdering Facility: [facility] Address: [address] [place] [address] Performed By: #### 5 7021-8 ####[facility] LABORATORYCLIA [id number] [place] [address] [place] Basophils/100 WBC (Bld) 0.3 % Normal [facility] Comment on above: Order Comment: Speci men Type: BLOOD SPECIMENOrdering Facility: [facility] Address: [address] [address] Performed By: #### 5 7021-8 ####[facility] LABORATORYCLIA [id number] [place] [address] [place] Differential cell count method Nom (Bld) Auto Normal [facility] Comment on above: Order Comment: Speci men Type: BLOOD SPECIMENOrdering Facility: [facility] Address: [address] [address] Performed By: #### 5 7021-8 ####[facility] LABORATORYCLIA [id number] [place] [address] [place] Eosinophils (Bld) [#/Vol] 0.03 10*3/uL Normal <0.46 [facility] Comment on above: Order Comment: Speci men Type: BLOOD SPECIMENOrdering Facility: [facility] Address: [address] [address] Performed By: #### 5 7021-8 ####[facility] LABORATORYCLIA [id number] [place] [address] [place] Eosinophils/100 WBC (Bld) 0.2 % Normal [facility] Comment on above: Order Comment: Speci men Type: BLOOD SPECIMENOrdering Facility: [facility] Address: [address] [place] [address] Performed By: #### 5 7021-8 ####[facility] LABORATORYCLIA [id number] [place] [address] [place] Erythrocyte distribution width (RBC) [Ratio] 13.6 % Normal 11.5-15.0 [facility] Comment on above: Order Comment: Speci men Type: BLOOD SPECIMENOrdering Facility: [facility] Address: [address] [address] Performed By: #### 5 7021-8 ####[facility] LABORATORYCLIA [id number] [place] [address] [place] Hematocrit (Bld) [Volume fraction] 41.4 % Normal 36.0-46.0 [facility] Comment on above: Order Comment: Speci men Type: BLOOD SPECIMENOrdering Facility: [facility] Address: [address] [place] [address] Performed By: #### 5 7021-8 ####[facility] LABORATORYCLIA [id number] [place] [address] [place] Hemoglobin (Bld) [Mass/Vol] 13.6 g/dL Normal 11.5-15.5 [facility] Comment on above: Order Comment: Speci men Type: BLOOD SPECIMENOrdering Facility: [facility] Address: [address] [place] [address] Performed By: #### 5 7021-8 ####[facility] LABORATORYCLIA [id number] [place] [address] [place] Immature granulocytes (Bld) [#/Vol] 0.08 10*3/uL Normal <0.10 [facility] Comment on above: Order Comment: Speci men Type: BLOOD SPECIMENOrdering Facility: [facility] Address: [address] [place] [address] Performed By: #### 5 7021-8 ####[facility] LABORATORYCLIA [id number] [place] [address] [place] Immature granulocytes/100 WBC (Bld) 0.6 % Normal [facility] Comment on above: Order Comment: Speci men Type: BLOOD SPECIMENOrdering Facility: [facility] Address: [address] [place] [address] Performed By: #### 5 7021-8 ####[facility] LABORATORYCLIA [id number] [place] [address] [place] Lymphocytes (Bld) [#/Vol] 3.86 10*3/uL Normal 1.00-4.00 [facility] Comment on above: Order Comment: Speci men Type: BLOOD SPECIMENOrdering Facility: [facility] Address: [address] [place] [address] Performed By: #### 5 7021-8 ####[facility] LABORATORYCLIA [id number] [place] [address] [place] Lymphocytes/100 WBC (Bld) 28.3 % Normal [facility] Comment on above: Order Comment: Speci men Type: BLOOD SPECIMENOrdering Facility: [facility] Address: [address] [address] Performed By: #### 5 7021-8 ####[facility] LABORATORYCLIA [id number] [place] [address] [place] MCH (RBC) [Entitic mass] 26.8 pg Normal 26.0-34.0 [facility] Comment on above: Order Comment: Speci men Type: BLOOD SPECIMENOrdering Facility: [facility] Address: [address] [address] Performed By: #### 5 7021-8 ####[facility] LABORATORYCLIA [id number] [place] [address] [place] MCHC (RBC) [Mass/Vol] 32.9 g/dL Normal 30.5-36.0 [facility] Comment on above: Order Comment: Speci men Type: BLOOD SPECIMENOrdering Facility: [facility] Address: [address] [address] Performed By: #### 5 7021-8 ####[facility] LABORATORYCLIA [id number] [address] [place] MCV (RBC) [Entitic vol] 81.7 fL Normal 80.0-100.0 [facility] Comment on above: Order Comment: Speci men Type: BLOOD SPECIMENOrdering Facility: [facility] Address: [address] [place] [address] Performed By: #### 5 7021-8 ####[facility] LABORATORYCLIA [id number] [place] [address] [place] Monocytes (Bld) [#/Vol] 0.80 10*3/uL Normal <0.87 [facility] Comment on above: Order Comment: Speci men Type: BLOOD SPECIMENOrdering Facility: [facility] Address: [address] [address] Performed By: #### 5 7021-8 ####[facility] LABORATORYCLIA [id number] [place] [address] [place] Monocytes/100 WBC (Bld) 5.9 % Normal [facility] Comment on above: Order Comment: Speci men Type: BLOOD SPECIMENOrdering Facility: [facility] Address: [address] [place] [address] Performed By: #### 5 7021-8 ####[facility] LABORATORYCLIA [id number] [place] [address] [place] Neutrophils (Bld) [#/Vol] 8.85 10*3/uL High 1.45-7.50 [facility] Comment on above: Order Comment: Speci men Type: BLOOD SPECIMENOrdering Facility: [facility] Address: [address] [place] [address] Performed By: #### 5 7021-8 ####[facility] LABORATORYCLIA [id number] [place] [address] [place] Neutrophils/100 WBC (Bld) 64.7 % Normal [facility] Comment on above: Order Comment: Speci men Type: BLOOD SPECIMENOrdering Facility: [facility] Address: [address] [place] [address] Performed By: #### 5 7021-8 ####[facility] LABORATORYCLIA [id number] [place] [address] [place] Nucleated RBC (Bld) [#/Vol] 10*3/uL Normal <0.01 [facility] Comment on above: Order Comment: Speci men Type: BLOOD SPECIMENOrdering Facility: [facility] Address: [address] [place] [address] Performed By: #### 5 7021-8 ####[facility] LABORATORYCLIA [id number] [place] [address] [place] Nucleated RBC/100 WBC (Bld) [Ratio] 0.0 /100 WBC Normal [facility] Comment on above: Order Comment: Speci men Type: BLOOD SPECIMENOrdering Facility: [facility] Address: [address] [place] [address] Performed By: #### 5 7021-8 ####[facility] LABORATORYCLIA [id number] [place] [address] [place] Platelet mean volume (Bld) [Entitic vol] 9.3 fL Normal 9.0-12.7 [facility] Comment on above: Order Comment: Speci men Type: BLOOD SPECIMENOrdering Facility: [facility] Address: [address] [place] [address] Performed By: #### 5 7021-8 ####[facility] LABORATORYCLIA [id number] [place] [address] [place] Platelets (Bld) [#/Vol] 495 10*3/uL High 150-400 [facility] Comment on above: Order Comment: Speci men Type: BLOOD SPECIMENOrdering Facility: [facility] Address: [address] [place] [address] Performed By: #### 5 7021-8 ####[facility] LABORATORYCLIA [id number] [place] [address] [place] RBC (Bld) [#/Vol] 5.07 10*6/uL Normal 3.90-5.20 [facility] Comment on above: Order Comment: Speci men Type: BLOOD SPECIMENOrdering Facility: [facility] Address: [address] [place] [address] Performed By: #### 5 7021-8 ####[facility] LABORATORYCLIA [id number] [place] [address] [place] WBC (Bld) [#/Vol] 13.66 10*3/uL High 3.70-11.00 [facility] Comment on above: Order Comment: Speci men Type: BLOOD SPECIMENOrdering Facility: [facility] Address: [address] [place] [address] Performed By: #### 5 7021-8 ####[facility] LABORATORYCLIA [id number] [address] [place] Comprehensive metabolic 2000 panelon 03-01-2023 Albumin [Mass/Vol] 4.1 g/dL Normal 3.9-4.9 [facility] Comment on above: Order Comment: Speci men Type: BLOOD SPECIMENOrdering Facility: [facility] Address: [address] [address] Performed By: #### [place], [address]-4, 3040-3, 58417-6 ####[facility] LABORATORYCLIA [id number] [place] [address] [place] ALP [Catalytic activity/Vol] 102 U/L Normal 34-123 [facility] Comment on above: Order Comment: Speci men Type: BLOOD SPECIMENOrdering Facility: [facility] Address: [address] [address] Performed By: #### [place], 29846-4, 3040-3, 85257-8 ####[facility] LABORATORYCLIA [id number] [address] [place] ALT [Catalytic activity/Vol] 10 U/L Normal 7-38 [facility] Comment on above: Order Comment: Speci men Type: BLOOD SPECIMENOrdering Facility: [facility] Address: [address] [address] Performed By: #### Tarik HB, , 3040-3, 39135-2 ####[facility] LABORATORYCLIA [id number] [address] [place] Anion gap [Moles/Vol] 15 mmol/L Normal 9-18 [facility] Comment on above: Order Comment: Speci men Type: BLOOD SPECIMENOrdering Facility: [facility] Address: [address] [address] Performed By: #### [place], 44676-7, 3040-3, 09629-5 ####[facility] LABORATORYCLIA [id number] [place] [address] [place] AST [Catalytic activity/Vol] 12 U/L Low 13-35 [facility] Comment on above: Order Comment: Speci men Type: BLOOD SPECIMENOrdering Facility: [facility] Address: [address] [address] Performed By: #### [place], 50264-1, 3040-3, 34656-9 ####[facility] LABORATORYCLIA [id number] [place] [id number] [place] Bilirubin [Mass/Vol] 0.4 mg/dL Normal 0.2-1.3 [facility] Comment on above: Order Comment: Speci men Type: BLOOD SPECIMENOrdering Facility: [facility] Address: [address] [place] [address] Performed By: #### B HB, 06869-9, 3040-3, 91333-8 ####[facility] LABORATORYCLIA [id number] [place] [id number] [place] Calcium [Mass/Vol] 9.8 mg/dL Normal 8.5-10.2 [facility] Comment on above: Order Comment: Speci men Type: BLOOD SPECIMENOrdering Facility: [facility] Address: [address] [place] [address] Performed By: #### [place], 55378-4, 3040-3, 73925-1 ####[facility] LABORATORYCLIA [id number] [place] [id number] [place] Chloride [Moles/Vol] 95 mmol/L Low 97-105 [facility] Comment on above: Order Comment: Speci men Type: BLOOD SPECIMENOrdering Facility: [facility] Address: [address] [place] [address] Performed By: #### B HB, 38964-2, 3040-3, 58408-5 ####[facility] LABORATORYCLIA [id number] [place] [id number] [place] CO2 [Moles/Vol] 23 mmol/L Normal 22-30 [facility] Comment on above: Order Comment: Speci men Type: BLOOD SPECIMENOrdering Facility: [facility] Address: [address] [place] [address] Performed By: #### B HB, 70665-2, 3040-3, 19372-1 ####[facility] LABORATORYCLIA [id number] [place] [address] [place] Creatinine [Mass/Vol] 1.02 mg/dL High 0.58-0.96 [facility] Comment on above: Order Comment: Mahogany vargas Type: BLOOD SPECIMENOrdering Facility: [facility] Address: [address] [place] [address] Performed By: #### B HB, 97994-8, 3039-3, ####[facility] LABORATORYCLIA [id number] [address] [place] Creatinine and Glomerular filtration rate.predicted panel (S/P/Bld) 76 mL/min/1.73m??? Normal >=60 [facility] Comment on above: Order Comment: Mahogany vargas Type: BLOOD SPECIMENOrdering Facility: [facility] Address: [address] [place] [address] Result Comment: Samreen mated Glomerular Filtration Rate [...] actual GFR. Performed By: #### B [place], 78032-5, 3, ####[facility] LABORATORYCLIA [id number] [place] [id number] [place] Glucose [Mass/Vol] 258 mg/dL High 74-99 [facility] Comment on above: Order Comment: Mahogany alicia Type: BLOOD SPECIMENOrdering Facility: [facility] Address: [address] [place] [address] Result Comment: The [place] Diabetes Association (ADA) provides guidance for cutoff [...] Standards of Medical Care in Diabetes 2016, [place] [employer]. Diabetes Care. 2016.39(Suppl 1). Performed By: #### B [place], 74221-6, 3040-3, 28484-5 ####[facility] [place] [facility] LABORATORYCLIA [id number] [place] [id number] [place] Potassium [Moles/Vol] 3.5 mmol/L Low 3.7-5.1 [facility] Comment on above: Order Comment: Mahogany vargas Type: BLOOD SPECIMENOrdering Facility: [facility] Address: [address] [place] [address] Performed By: #### B HB, , 3039-3, 97823-7 ####[facility] LABORATORYCLIA [id number] [place] [address] [place] Protein [Mass/Vol] 8.5 g/dL High 6.3-8.0 [facility] Comment on above: Order Comment: Mahogany vargas Type: BLOOD SPECIMENOrdering Facility: [facility] Address: [address] [place] [address] Performed By: #### B HB, , 3039-3, 06580-0 ####[facility] LABORATORYCLIA [id number] [place] [address] [place] Sodium [Moles/Vol] 133 mmol/L Low 136-144 [facility] Comment on above: Order Comment: Mahogany vargas Type: BLOOD SPECIMENOrdering Facility: [facility] Address: [address] [place] [address] Performed By: #### B HB, , 0-3, 43308-8 ####[facility] LABORATORYCLIA [id number] [place] [id number] [place] Urea nitrogen [Mass/Vol] 11 mg/dL Normal 01-29 [facility] Comment on above: Order Comment: Speci men Type: BLOOD SPECIMENOrdering Facility: [facility] Address: [address] [place] [id number] Performed By: #### B HB, 37997-3, 3040-3, 85227-9 ####[facility] LABORATORYCLIA [id number] [address] ECG COMPLETEon 03-01-2023 ECG COMPLETE Ventricular Rate : 8 3 BPM Atrial Rate : 83 BPM P-R Interval : 126 ms QRS Duration : 90 ms Q-T Interval : 358 ms QTC Calculation(Bazett) : 420 ms Calculated P [place] : 5 degrees Calculated R [place] : 1 degrees Calculated T [place] : 13 degrees NORMAL SINUS RHYTHM MINIMAL VOLTAGE CRITERIA FOR LVH, MAY BE NORMAL VARIANT ( R in aVL ) NONSPECIFIC T WAVE ABNORMALITY ABNORMAL ECG NO PREVIOUS ECGS AVAILABLE Confirmed by ARABELLA SARMIENTO DO (), photographic editor NORMAN GARVEY ([id number]) on 03/02/2023 7:20:55 AM NAME : GHISLAINE GIVENS PID : [id number] : 1990 Gender : Female Race : ORD : [id number] Procedure Date : Mar 01 2023 11:58:01 Edit Date : Mar 02 2023 07:20:56 Diagnosis: NORMAL SINUS RHYTHM MINIMAL VOLTAGE CRITERIA FOR LVH, MAY BE NORMAL VARIANT ( R in aVL ) NONSPECIFIC T WAVE ABNORMALITY ABNORMAL ECG NO PREVIOUS ECGS AVAILABLE Confirmed by ARABELLA SARMIENTO DO (), photographic editor NORMAN GARVEY ([id number]) on 03/02/2023 7:20:55 AM Test Reason : Chest Pain Location : 1 : 1 ED Overread By : ARABELLA SARMIENTO DO Edited By : NORMAN GARVEY Referred By : , Acquired by : , [facility] ED NOTEon 03-01-2023 ED NOTE HNO ID: [id number] Author: Gayathri Bruno RN Service: ? Author Type: Registered Nurse Type: ED Notes Filed: 03/01/2023 5:12 PM Note Text: NG tube removed without complications. [facility] ED NOTE HNO ID: [id number] Author: Wherry, Luzma M, RN Service: Emergency Medicine Author Type: Registered Nurse Type: ED Notes Filed: 03/01/2023 5:05 PM Note Text: Patient crying and yelling in room to take out her NG tube. Provider aware. [facility] ED NOTE HNO ID: [id number] Author: Dewayne Gallagher RN Service: ? Author Type: Registered Nurse Type: ED Notes Filed: 03/01/2023 11:20 AM Note Text: Pt has longstanding pmh abd pain with n/v, had upper gi scope done at [facility] 02/19/23 that showed mild gastritis. Pt was in [facility] office for first visit, escorted down here by nursing staff. Pt denies diarrhea, sts too many episodes of vomiting to count, sts maybe a little when asked about hematemesis. Pt sts she hasnt smoked thc in 3 mos since all this started, sts ongoing issue for past 3 mos. [facility] ED PROV NOTEon 03-01-2023 ED PROV NOTE HNO ID: [id number] Author: Arabella Sarmiento DO Service: Emergency Medicine [...] office evaluation. She was not evaluated by dogman/woman. Vomiting too frequent to count and constant [...] was prescribed stool softeners and laxatives during [facility] stay however she refuses to take them because she feels they worsen abdominal pain. She was also prescribed narcotic pain medication for home which she states she has been taking. 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 Normal [facility] KETONES/ACETONE/BHBon 2022 Beta hydroxybutyrate [Moles/Vol] 0.70 mmol/L High <0.28 [facility] Comment on above: Order Comment: Speci men Type: BLOOD SPECIMENOrdering Facility: [facility] Address: [address] [place] [address] Performed By: #### B HB, 68649-8, 3040-3, 89920-5 ####[facility] LABORATORYCLIA [id number] [place] [address] [place] Lipase SerPl-cCncon 03-01-20 23 Lipase [Catalytic activity/Vol] 57 U/L Normal 16-61 [facility] Comment on above: Order Comment: Speci men Type: BLOOD SPECIMENOrdering Facility: [facility] Address: [address] [place] [address] Performed By: #### B HB, 60880-7, 3040-3, 00981-5 ####[facility] LABORATORYCLIA [id number] [place] [address] [place] Magnesium SerPl-mCncon 03-01 Magnesium [Mass/Vol] 1.7 mg/dL Normal 1.7-2.3 [facility] Comment on above: Order Comment: Speci men Type: BLOOD SPECIMENOrdering Facility: [facility] Address: [address] [place] [address] Performed By: #### B HB, 08148-1, 3040-3, 46748-3 ####[facility] LABORATORYCLIA [id number] [place] [address] [place] TOX SCREEN ROUT URon 023 Amphetamines Confirm (U) [Mass/Vol] Negative Normal Negative [facility] Comment on above: Order Comment: Speci men Type: URINE SPECIMENOrdering Facility: [facility] Address: [address] [place] [address] Result Comment: Cuto ff threshold at 1000 ng/mL. Performed By: #### U TOX2 ####[facility] LABORATORYCLIA [id number] [place] [address] [place] BARBITURATES, URINE Negative Normal Negative [facility] Comment on above: Order Comment: Speci men Type: URINE SPECIMENOrdering Facility: [facility] Address: [address] [place] [address] Result Comment: Cuto ff threshold at 200 ng/mL. Performed By: #### U TOX2 ####[facility] LABORATORYCLIA [id number] [place] [address] [place] BENZODIAZEPINES, UR Negative Normal Negative [facility] Comment on above: Order Comment: Speci men Type: URINE SPECIMENOrdering Facility: [facility] Address: [address] [place] [address] Result Comment: Cuto ff threshold at 200 ng/mL. Performed By: #### U TOX2 ####[facility] LABORATORYCLIA [id number] [place] [address] [place] Cannabinoids Screen Ql (U) Negative Normal Negative [facility] Comment on above: Order Comment: Speci men Type: URINE SPECIMENOrdering Facility: [facility] Address: [address] [place] [address] Result Comment: Cuto ff threshold at 50 ng/mL. Performed By: #### U TOX2 ####[facility]ATORYCLIA [id number] [place] [address] [place] Cocaine Ql (U) Negative Normal Negative [facility] Comment on above: Order Comment: Speci men Type: URINE SPECIMENOrdering Facility: [facility] Address: [address] [place] [address] Result Comment: Cuto ff threshold at 300 ng/mL. Performed By: #### U TOX2 ####[facility]ORATORYCLIA [id number] [place] [address] [place] Ethanol (U) [Mass/Vol] <11 Normal <11 So [facility] Comment on above: Order Comment: Speci men Type: URINE SPECIMENOrdering Facility: [facility] Address: [address] [place] [address] Performed By: #### U TOX2 ####[facility]ORATORYCLIA [id number] [address] [place] Opiates Screen Ql (U) Positive Abnormal Negative [facility] Comment on above: Order Comment: Speci men Type: URINE SPECIMENOrdering Facility: [facility] Address: [address] [place] [address] Result Comment: Cuto ff threshold at 300 ng/mL. Performed By: #### U TOX2 ####[facility]ATORYCLIA [id number] [address] [place] oxyCODONE cutoff Screen (U) [Mass/Vol] Negative Normal Negative [facility] Comment on above: Order Comment: Speci men Type: URINE SPECIMENOrdering Facility: [facility] Address: [address] [place] [address] Result Comment: Cuto ff threshold at 100 ng/mL. Performed By: #### U TOX2 ####[facility]ORYCLIA [id number] [address] [place] Phencyclidine Ql (U) Negative Normal Negative [facility] Comment on above: Order Comment: Speci men Type: URINE SPECIMENOrdering Facility: [facility] Address: [address] [place] [address] Result Comment: Cuto ff threshold at 25 ng/mL. Performed By: #### U TOX2 ####[facility]ORATORYCLIA [id number] [place] [address] [place] Urinalysis complete panel (U )on 03-01-2023 Bacteria LM.HPF (Urine sed) [#/Area] Moderate Abnormal None Seen [facility] Comment on above: Order Comment: Speci men Type: URINE SPECIMENOrdering Facility: [facility] Address: [address] [place] [address] Performed By: #### 2 4356-8 ####[facility]'SCLIA [id number] [place] [address] [place] Bilirubin Ql (U) 1+ Abnormal Negative [facility] Comment on above: Order Comment: Speci men Type: URINE SPECIMENOrdering Facility: [facility] Address: [address] [place] [address] Result Comment: Sugg est correlation with clinical findings and serum bilirubin if clinically indicated. Performed By: #### 2 4356-8 ####[facility]ORATORYCLIA [id number] [place] [address] [place] Clarity (Unsp spec) Cloudy Abnormal Clear [facility] Comment on above: Order Comment: Speci men Type: URINE SPECIMENOrdering Facility: [facility] Address: [address] [place] [address] Performed By: #### 2 4356-8 ####[facility]ORATORYCLIA [id number] [place] [address] [place] Color (U) Yellow Normal Yellow [facility] Comment on above: Order Comment: Speci men Type: URINE SPECIMENOrdering Facility: [facility] Address: [address] [address] Performed By: #### 2 4356-8 ####[facility]ORATORYCLIA [id number] [place] [address] [place] Epithelial cells LM.HPF (Urine sed) [#/Area] Many Normal [facility] Comment on above: Order Comment: Speci men Type: URINE SPECIMENOrdering Facility: [facility] Address: [address] [place] [address] Result Comment: Few Performed By: #### 2 4356-8 ####[facility]ORATORYCLIA [id number] [place] [address] [place] Glucose Test strip (U) [Mass/Vol] Trace Abnormal Negative [facility] Comment on above: Order Comment: Speci men Type: URINE SPECIMENOrdering Facility: [facility] Address: [address] [place] [address] Performed By: #### 2 4356-8 ####[facility]ORATORYCLIA [id number] [place] [address] [place] Hemoglobin Ql (U) Negative Normal Negative, Trace [facility] Comment on above: Order Comment: Speci men Type: URINE SPECIMENOrdering Facility: [facility] Address: [address] [place] [address] Performed By: #### 2 4356-8 ####[facility]ORATORYCLIA [id number] [place] [address] [place] Hyaline casts (Urine sed) [#/Area] 1-3 /LPF Abnormal 0 /LPF [facility] Comment on above: Order Comment: Speci men Type: URINE SPECIMENOrdering Facility: [facility] Address: [address] [place] [address] Performed By: #### 2 4356-8 ####[facility] LABORATORYCLIA [id number] [place] [address] [place] Ketones Ql (U) Trace Abnormal Negative [facility] Comment on above: Order Comment: Speci men Type: URINE SPECIMENOrdering Facility: [facility] Address: [address] [address] Performed By: #### 2 4356-8 ####[facility]ORATORYCLIA [id number] [place] [address] [place] Leukocyte esterase Test strip Ql (U) Negative Normal Negative [facility] Comment on above: Order Comment: Speci men Type: URINE SPECIMENOrdering Facility: [facility] Address: [address] [place] [address] Performed By: #### 2 4356-8 ####[facility]ORATORYCLIA [id number] [place] [address] [place] Nitrite Ql (U) Negative Normal Negative [facility] Comment on above: Order Comment: Speci men Type: URINE SPECIMENOrdering Facility: [facility] Address: [address] [place] [address] Performed By: #### 2 4356-8 ####[facility]ORATORYCLIA [id number] [place] [address] [place] pH (U) 5.5 [pH] Normal 5.0-8.0 [facility] Comment on above: Order Comment: Speci men Type: URINE SPECIMENOrdering Facility: [facility] Address: [address] [place] [address] Performed By: #### 2 4356-8 ####[facility]ORATORYCLIA [id number] [place] [address] [place] Protein (U) [Mass/Vol] 2+ Abnormal Negative So [facility] Comment on above: Order Comment: Speci men Type: URINE SPECIMENOrdering Facility: [facility] Address: [address] [place] [address] Performed By: #### 2 4356-8 ####[facility]ORATORYCLIA [id number] [place] [address] [place] RBC LM.HPF (Urine sed) [#/Area] 0-3 /HPF Normal 0-3 /HPF [facility] Comment on above: Order Comment: Speci men Type: URINE SPECIMENOrdering Facility: [facility] Address: [address] [place] [address] Performed By: #### 2 4356-8 ####[facility]ORATORYCLIA [id number] [address] [place] Specific gravity (U) [Rel density] >=1.030 High 1.005-1.030 [facility] Comment on above: Order Comment: Speci men Type: URINE SPECIMENOrdering Facility: [facility] Address: [address] [place] [address] Performed By: #### 2 4356-8 ####[facility]ORATORYCLIA [id number] [place] [address] [place] Urobilinogen Ql (U) 1.0 EU/dL Normal 0.2-1.0 EU/dL [facility] Comment on above: Order Comment: Speci men Type: URINE SPECIMENOrdering Facility: [facility] Address: [address] [place] [address] Performed By: #### 2 4356-8 ####[facility]ORATORYCLIA [id number] [place] [address] [place] WBC LM.HPF (Urine sed) [#/Area] 0-5 /HPF Normal 0-5 /HPF [facility] Comment on above: Order Comment: Speci men Type: URINE SPECIMENOrdering Facility: [facility] Address: [address] [place] [address] Performed By: #### 2 4356-8 ####[facility]ORATORYCLIA [id number] [place] [address] [place] Absolute lymphocyte countOrd ered By: Perico Norman on 02-26-2023 Lymphocytes Auto (Unsp spec) [#/Vol] 2.45 10*3/uL 0.83-4.51 [facility] Basophil percentageOrdered B y: Perico Norman on 02-26-2023 Basophil percentage 0-5 SEEN /hpf 0-5 [facility] Basophil percentage 271 mg/dL 74-106 [facility] Basophil percentage 9.3 g/dL 6.4-8.2 [facility] Basophil percentage 0.80 mg/dL 0.20-1.00 [facility] Basophil percentage 131 mmol/L 136-145 [facility] Basophil percentage 3.4 mmol/L 3.5-5.1 [facility] Basophil percentage 98 mmol/L 98-107 [facility] Basophils (Bld) [#/Vol] 16.2 10*3/uL 4.4-11.0 [facility] Basophils (Bld) [#/Vol] 12.3 10*3/uL 2.0-7.7 [facility] Basophils/100 WBC (Bld) 75.8 % 47-70 [facility] Basophils/100 WBC (Bld) 0.1 % 0-5 [facility] Basophils/100 WBC (Bld) 0.4 % 0-1 [facility] Bilirubin [Mass/Vol] 0.80 mg/dL 0.20-1.00 [facility] Comment on above: For patients on eltr ombopag therapy, use of Dimension [place] TBIL is not recommended. Chloride [Moles/Vol] 98 mmol/L 98-107 [facility] Eosinophils/100 WBC (Bld) 0.1 % 0-5 [facility] Glucose [Mass/Vol] 271 mg/dL 74-106 [facility] Comment on above: Glucose result great er than or equal to 200 mg/dLsuggests DIABETES MELLITUS per A.D.A. criteria. Neutrophils (Bld) [#/Vol] 12.3 10*3/uL 2.0-7.7 [facility] Neutrophils/100 WBC (Bld) 75.8 % 47-70 [facility] Potassium [Moles/Vol] 3.4 mmol/L 3.5-5.1 [facility] Protein [Mass/Vol] 9.3 g/dL 6.4-8.2 [facility] Sodium [Moles/Vol] 131 mmol/L 136-145 [facility] WBC (Bld) [#/Vol] 16.2 10*3/uL 4.4-11.0 [facility] Beta hCG serum qualOrdered B y: Perico Norman on 02-26-2023 Beta HCG ( test) Ql Negative [facility] Bilirubin Test strip Ql (U)O rdered By: Perico Norman on 02-26-2023 Bilirubin Ql (U) Negative Negative [facility] Blood erythrocytes count (nu mber/volume)Ordered By: Perico Norman on 02-26-2023 RBC (Bld) [#/Vol] 4.97 10*6/uL 4.2-5.4 [facility] Blood hemoglobin measurement (mass/volume)Ordered By: Perico Norman on 02-26-2023 Hemoglobin (Bld) [Mass/Vol] 13.3 g/dL 12.0-15.0 [facility] Blood lymphocytes/100 leukoc ytesOrdered By: Perico Norman on 02-26-2023 Lymphocytes/100 WBC (Bld) 15.1 % 19-41 [facility] Blood monocytes/100 leukocyt esOrdered By: Perico Norman on 02-26-2023 Monocytes/100 WBC (Bld) 8.0 % 0-10 [facility] Blood platelet mean volumeOr dered By: Perico Norman on 02-26-2023 Platelet mean volume (Bld) [Entitic vol] 9.1 fL 6.2-12.0 [facility] Determination of erythrocyte mean corpuscular volume (MCV)Ordered By: Perico Norman on 02-26-2023 MCV (RBC) [Entitic vol] 80.9 fL 81-99 [facility] Direct bilirubinOrdered By: Perico Norman on 02-26-2023 Bilirubin.direct [Mass/Vol] 0.22 mg/dL 0.00-0.30 [facility] Hematocrit Auto (Bld) [Volum e fraction]Ordered By: Perico Norman on 02-26-2023 Hematocrit (Bld) [Volume fraction] 40.2 % 37-47 [facility] Ketones Test strip Ql (U)Ord ered By: Perico Norman on 02-26-2023 Ketones Ql (U) 15 mg/dl Negative [facility] Laboratory - Chemistry and C hemistry - challengeOrdered By: Perico Norman on 02-26-2023 ALP [Catalytic activity/Vol] 108 U/L 45-117 [facility] ALT [Catalytic activity/Vol] 17 U/L 13-56 [facility] CO2 [Moles/Vol] 22.0 mmol/L 21.0-32.0 [facility] Globulin (S) [Mass/Vol] 5.7 g/dL 2.2-4.2 [facility] Lipase [Catalytic activity/Vol] 64 U/L 13-75 [facility] Comment on above: Please note:LIPASE r evised reference range effective 22. New Lipase methodology. Expected to produce lower values than the previous assay method. NEW Reference Range: 13 - 75 U/L Magnesium [Mass/Vol] 2.0 mg/dL 1.6-2.6 [facility] Urea nitrogen/Creatinine [Mass ratio] 13.2 mg/mg 10-20 [facility] Laboratory - Hematology and Cell countsOrdered By: Perico Norman on 02-26-2023 Erythrocyte distribution width (RBC) [Entitic vol] 38.7 fL 35.1-43.9 [facility] Erythrocyte distribution width (RBC) [Ratio] 13.2 % 11.6-14.6 [facility] Immature granulocytes/100 WBC (Bld) 0.600 % 0.0-0.9 [facility] Comment on above: IG% - Immature Granu locytes (promyelocytes, myelocytes and metamyelocytes) > 1% indicates that a LEFT SHIFT is Present. MCH (RBC) [Entitic mass] 26.8 pg 27.0-32.0 [facility] Nucleated RBC/100 WBC (Bld) [Ratio] 0 % 0-5 [facility] MCHC Auto (RBC) [Mass/Vol]Or dered By: Perico Norman on 02-26-2023 MCHC (RBC) [Mass/Vol] 33.1 g/dL 32-36 [facility] Mucus LM Ql (Urine sed)Order ed By: Perico Norman on 02-26-2023 Mucus Ql (Urine sed) 0 SEEN /hpf [facility] Nitrite Test strip Ql (U)Ord ered By: Perico Norman on 02-26-2023 Nitrite Ql (U) Negative Negative [facility] No Panel InformationOrdered By: Perico Norman on 02-26-2023 Urine Transitional Epithelial Cells 0-5 SEEN /hpf 0-5 [facility] 0-5 SEEN /hpf 0-5 [facility] Estimated Creatinine Clearance Calc 50.20 ml/min [facility] Estimated GFR (MDRD) Amer 51 mL/min >60 [facility] Comment on above: GFR Calc Estimated GFR (MDRD) Non-Af Amer 42 mL/min >60 [facility] Comment on above: Non- GFR Calc 26.8 pg 27.0-32.0 [facility] 13.2 % 11.6-14.6 [facility] 38.7 fl 35.1-43.9 [facility] 0.600 % 0.0-0.9 [facility] 0 % 0-5 [facility] 42 mL/min >60 [facility] 51 mL/min >60 [facility] 50.20 ml/min [facility] 13.2 RATIO 10-20 [facility] 5.7 g/dL 2.2-4.2 [facility] 64 U/L 13-75 [facility] 108 U/L 45-117 [facility] 17 U/L 13-56 [facility] 2.0 mg/dL 1.6-2.6 [facility] 22.0 mmol/L 21.0-32.0 [facility] Platelets bldOrdered By: Bakari Norman on 02-26-2023 Platelets (Bld) [#/Vol] 483 10*3/uL 150-450 [facility] Protein Test strip Ql (U)Ord ered By: Perico Norman on 02-26-2023 Protein Ql (U) 30 mg/dl Negative [facility] Serum or plasma albumin hussein urement (mass/volume)Ordered By: Perico Norman on 02-26-2023 Albumin [Mass/Vol] 3.6 g/dL 3.2-5.0 [facility] Serum or plasma calcium hussein urement (mass/volume)Ordered By: Perico Norman on 02-26-2023 Calcium [Mass/Vol] 9.8 mg/dL 8.5-10.1 [facility] Serum or plasma creatinine m easurement (mass/volume)Ordered By: Perico Norman on 02-26-2023 Creatinine [Mass/Vol] 1.52 mg/dL 0.55-1.02 [facility] Comment on above: The validity of the calculated GFR & GFRAA in patients over 70 years has not been determined. Clinical correlation is essential. Serum or plasma urea nitroge n measurement (mass/volume)Ordered By: Perico Norman on 02-26-2023 Urea nitrogen [Mass/Vol] 20 mg/dL 7-18 [facility] Squamous epithelial cells de tection in urine sediment by light microscopyOrdered By: Perico Norman on 02-26-2023 Epithelial cells.squamous LM Ql (Urine sed) 0-5 SEEN /hpf 5-10 [facility] Thin prep Papanicolaou smear with manual screeningOrdered By: Perico Norman on 02-26-2023 Thin prep Papanicolaou smear with manual screening 12 U/L 15-37 [facility] Thin prep Papanicolaou smear with manual screening 11 5-15 [facility] Urine blood detectionOrdered By: Perico Norman on 02-26-2023 RBC Ql (U) 10 /ul Negative [facility] RBC Ql (U) 0 SEEN /hpf 0-5 [facility] Urine clarityOrdered By: Bakari Norman on 02-26-2023 Clarity (U) Clear Clear [facility] Urine color determinationOrd ered By: Perico Norman on 02-26-2023 Color (U) Yellow Yellow [facility] Urine glucose detectionOrder ed By: Perico Norman on 02-26-2023 Glucose Ql (U) 100 mg/dl Normal [facility] Urine leukocyte esterase det ection by dipstickOrdered By: Perico Norman on 02-26-2023 Leukocyte esterase Test strip Ql (U) 25 /ul Negative [facility] Urine pHOrdered By: Perico hernandez on 02-26-2023 pH (U) 5.0 [pH] 5.0 - 8.0 [facility] Urine sediment bacteria coun t by microscopy (number/high power field)Ordered By: Perico Norman on 02-26-2023 Bacteria LM.HPF (Urine sed) [#/Area] RARE /hpf None Seen [facility] Urine specific gravity measu rementOrdered By: Perico Norman on 02-26-2023 Specific gravity (U) [Rel density] 1.020 1.002-1.030 [facility] Urobilinogen Auto test strip Ql (U)Ordered By: Perico Norman on 02-26-2023 Urobilinogen Ql (U) Normal mg/dl Normal [facility] CBC + DIFFon 02-17-2023 Baso # 0.00 x10EE3/UL Normal 0.00 - 0.10 [facility] Comment on above: Performed By: #### 2 [id number] #### [facility],[address] [place] [address] Basophils/100 WBC (Bld) 0.4 % Normal 0.0 - 2.0 [facility] Comment on above: Performed By: #### 2 60992 #### [facility],[address] [place] [address] CBC + DIFF Normal [facility] Comment on above: Result Comment: CBC- COMPLETE BLOOD COUNT Performed By: #### 2 63253 #### [facility],[address] [place] [address] EO # 0.00 x10EE3/UL Normal 0.00 - 0.50 [facility] Comment on above: Performed By: #### 2 99131 #### [facility],[address] [place], [place] [id number] Eosinophils/100 WBC (Bld) 0.2 % Normal 0.0 - 7.0 [facility] Comment on above: Performed By: #### 2 09734 #### [facility],[address] [place], [place] [id number] Erythrocyte distribution width (RBC) [Ratio] 15.1 % Normal 12.0 - 15.6 [facility] Comment on above: Performed By: #### 2 54660 #### [facility],[address] [place] [address] Hematocrit (Bld) [Volume fraction] 39.7 % Normal 34.0 - 46.0 [facility] Comment on above: Performed By: #### 2 63197 #### [facility],[address] [place] [address] Hemoglobin (Bld) [Mass/Vol] 13.3 g/dL Normal 12.0 - 16.0 [facility] Comment on above: Performed By: #### 2 83253 #### [facility],[address] [place] [address] Lymph # 3.30 x10EE3/UL High 0.80 - 2.80 [facility] Comment on above: Performed By: #### 2 10963 #### [facility],[address] [place] [address] Lymphocytes/100 WBC (Bld) 30.5 % Normal 20.0 - 45.0 [facility] Comment on above: Performed By: #### 2 47661 #### [facility],[address] [place], [place] [id number] MANUAL DIFF N/A Normal [facility] Comment on above: Performed By: #### 2 28959 #### [facility],[address] [place] [address] MCH (RBC) [Entitic mass] 27 pg Normal 27 - 33 [facility] Comment on above: Performed By: #### 2 77565 #### [facility],[address] [place] [address] MCHC 33 X10 3 Normal 32 - 36 [facility] Comment on above: Performed By: #### 2 41808 #### [facility],[address] [place] [address] MCV (RBC) [Entitic vol] 80 fL Normal 80 - 99 [facility] Comment on above: Performed By: #### 2 61906 #### [facility],[address] [place] [address] Bibb # 0.60 x10EE3/UL Normal 0.20 - 1.00 [facility] Comment on above: Performed By: #### 2 89185 #### [facility],[address] [place] [address]9864 MONOS % 5.9 % Normal 0.0 - 10.0 [facility] Comment on above: Performed By: #### 2 40939 #### [facility],[address] [place] [address] Morphology Franky (Bld) [Interp] N/A Normal [facility] Comment on above: Result Comment: {CD] Performed By: #### 2 22479 #### [facility],[address] [place] [address] 14823 Neut # 6.90 x10EE3/UL Normal 1.50 - 7.10 [facility] Comment on above: Performed By: #### 2 68419 #### [facility],[address] [place] [address] 2[address] Neutrophils/100 WBC (Bld) 63.0 % Normal 46.0 - 76.0 [facility] Comment on above: Performed By: #### 2 17117 #### [facility],[address] [place] [address] 67[address] PLATELET 561 x10EE3/UL High 150 - 450 [facility] Comment on above: Performed By: #### 2 82711 #### [facility],[address] [place] [address] 16951 Platelet mean volume (Bld) [Entitic vol] 7.6 fL Normal 6.6 - 10.5 [facility] Comment on above: Result Comment: AUTO MATED DIFFERENTIAL Performed By: #### 2 71279 #### [facility],[address] [place] [address] 40150 RBC 4.95 x 10EE6/UL Normal 4.10 - 5.30 [facility] Comment on above: Performed By: #### 2 29740 #### [facility],[address] [place] [address] 88336 WBC 10.9 x 10EE3/UL High 4.5 - 10.8 [facility] Comment on above: Performed By: #### 2 20973 #### [facility],[address] [place] [address] 68311 CMP with eGFRon 02-17-2023 AGE [address] [facility] Comment on above: Performed By: #### 2 97571 #### [facility],[address] [place] [address] 74665 Albumin [Mass/Vol] 3.5 g/dL Normal 3.4 - 5.0 [facility] Comment on above: Performed By: #### 2 65019 #### [facility],[address] [place] [address] 85878 Albumin/Globulin [Mass ratio] 0.6 {ratio} Low 0.9 - 1.6 [facility] Comment on above: Performed By: #### 2 45018 #### [facility],[address] [place] [address] 10566 ALK PHOS 112 U/L Normal 46 - 116 [facility] Comment on above: Performed By: #### 2 42093 #### [facility],[address] [place] [address] 01817 ALT [Catalytic activity/Vol] 28 U/L Normal 14 - 59 [facility] Comment on above: Performed By: #### 2 26800 #### [facility],[address] [place] [address] 05073 Anion gap [Moles/Vol] 21 mmol/L High 10 - 20 [facility] Comment on above: Performed By: #### 2 58706 #### [facility],[address] [place] [address] 98491 AST [Catalytic activity/Vol] 13 U/L Normal 13 - 39 [facility] Comment on above: Performed By: #### 2 77074 #### [facility],[address] [place] [address] 24319 B/C RATIO 12 ratio Normal 0 - 30 [facility] Comment on above: Performed By: #### 2 19019 #### [facility],[address] [place] [address] 31450 Bilirubin [Mass/Vol] 0.6 mg/dL Normal 0.2 - 1.0 [facility] Comment on above: Performed By: #### 2 21611 #### [facility],[address] [place] [address] 85296 Calcium [Mass/Vol] 9.6 mg/dL Normal 8.5 - 10.1 [facility] Comment on above: Performed By: #### 2 82020 #### [facility],[address] [place] [address] 33736 Chloride [Moles/Vol] 94 mmol/L Low 98 - 107 [facility] Comment on above: Performed By: #### 2 85688 #### [facility],[address] [place] [address] 78617 CMP with eGFR Normal [facility] Comment on above: Result Comment: COMP REHENSIVE METABOLIC PANEL Performed By: #### 2 44773 #### [facility],[address] [place] [address] 29453 CO2 [Moles/Vol] 23.7 mmol/L Normal 21.0 - 32.0 [facility] Comment on above: Performed By: #### 2 94218 #### [facility],[address] [place] [address] 74874 Creatinine [Mass/Vol] 1.18 mg/dL High 0.55 - 1.02 [facility] Comment on above: Performed By: #### 2 97681 #### [facility],[address] [place] [address] 73078 eGFR 53 ML/MINUTE Low 60 - 999 [facility] Comment on above: Performed By: #### 2 53595 #### [facility],[address] [place] [address] 03922 GFR/1.73 sq M.predicted among non-blacks MDRD (S/P/Bld) [Vol rate/Area] mL/min/{1.73_m2} Normal 60 - 999 [facility] Comment on above: Result Comment: ACCO RDING TO THE NATIONAL KIDNEY DISEASE EDUCATION PROGRAM(NKDE), A NORMAL eGFR IS A VALUE GREATER THAN OR EQUAL TO 60 ML/MIN/1.73 SQ METERS. CHRONIC KIDNEY DISEASE: <60mL/MIN/1.73 SQ METERS KIDNEY FAILURE: <15mL/MIN/1.73 SQ METERS THIS TEST SHOULD ONLY BE USED FOR PATIENTS 18 YEARS OF AGE AND OLDER. Performed By: #### 2 64372 #### [facility],[address] [place] [address] 96137 Globulin (S) [Mass/Vol] 5.4 g/dL High 1.5 - 3.8 [facility] Comment on above: Performed By: #### 2 53689 #### [facility],[address] [place] [address] 47681 Glucose [Mass/Vol] 306 mg/dL High 74 - 106 [facility] Comment on above: Performed By: #### 2 76151 #### [facility],[address] [place] [address] 73288 Potassium [Moles/Vol] 3.9 mmol/L Normal 3.5 - 5.1 [facility] Comment on above: Performed By: #### 2 28325 #### [facility],[address] [place] [address] 04015 Protein [Mass/Vol] 8.9 g/dL High 6.4 - 8.2 [facility] Comment on above: Performed By: #### 2 89672 #### [facility],[address] [place] [address] 66276 Sodium [Moles/Vol] 135 mmol/L Low 136 - 145 [facility] Comment on above: Performed By: #### 2 17369 #### [facility],[address] [place] [address] 33403 Urea nitrogen [Mass/Vol] 14 mg/dL Normal 7 - 18 [facility] Comment on above: Performed By: #### 2 90084 #### [facility],[address] [facility] [address] DRUG SCREEN URINE MEDICon AMPHETAMINES Negative Normal [facility] Comment on above: Performed By: #### 2 52972 #### [facility],[address] [facility] [address] B-DIAZEPINES Negative Normal [facility] Comment on above: Performed By: #### 2 76767 #### [facility],[address] [facility] [address] [facility] Comment on above: Performed By: #### 2 11828 #### [facility],[address] [facility] [address] COCAINE Negative [facility] Comment on above: Performed By: #### 2 69776 #### [facility],[address] [place] [address] 99683 DRUG SCREEN URINE MEDIC Normal [facility] Comment on above: Result Comment: DRUG SCREEN - URINE Performed By: #### 2 83718 #### [facility],[address] [facility] [address] METHADONE Negative [facility] Comment on above: Performed By: #### 2 57476 #### [facility],[address] [facility] [address] [facility] Comment on above: Performed By: #### 2 72629 #### [facility],[address] [facility] [address] PCP Negative [facility] Comment on above: Performed By: #### 2 11683 #### [facility],[address] [facility] [address] THC Negative [facility] Comment on above: Result Comment: ERASTO ENTS RECEIVING PROTON PUMP INHIBITORS MAY DEMONSTRATE FALSE POSITIVE THC/CANNABINOID RESULTS. AN ALTERNATIVE CONFIRMATORY METHOD SHOULD BE CONSIDERED TO VERIFY POSITIVE RESULTS. Performed By: #### 2 75452 #### [facility],[address] [place], [place] [id number] LIPASEon 02-17-2023 Lipase [Catalytic activity/Vol] 103.0 U/L Normal 73.0 - 393 [facility] Comment on above: Performed By: #### 2 47092 #### [facility],[address] [place] [address] URINEon 02-17-2023 Beta HCG ( test) Ql (U) Negative Normal NEGATIVE [facility] Comment on above: Performed By: #### 2 58932 #### [facility],[address] [place] [address] EXTERNAL QC DONE? YES Normal [facility] Comment on above: Performed By: #### 2 23177 #### [facility],[address] [place] [address] INTERNAL QC PASS Normal [facility] Comment on above: Performed By: #### 2 29962 #### [facility],[address] [place], [place] [id number] URINALYSISon 02-17-[address] [facility] Comment on above: Performed By: #### 2 42869 #### [facility],[address] [place] [address] [facility] Comment on above: Performed By: #### 2 56896 #### [facility],[address] [place], [place] [id number] Bilirubin Ql (U) Negative Normal NORMAL: NEGATIVE [facility] Comment on above: Performed By: #### 2 43730 #### [facility],[address] [place] [address] [facility] Comment on above: Performed By: #### 2 32730 #### [facility],[address],[place] [address] Clarity (U) sl.cloudy Normal NORMAL: CLEAR [facility] Comment on above: Performed By: #### 2 40962 #### [facility],[address] [place] [address] 62883 Color (U) jaqui Normal NORMAL: YELLOW [facility] Comment on above: Performed By: #### 2 06074 #### [facility],[address] [place] [address] 59456 Crystals LM Nom (Urine sed) NONE Normal [facility] Comment on above: Performed By: #### 2 54258 #### [facility],[address] [place] [address] 21667 Epi Cells FEW Normal [facility] Comment on above: Performed By: #### 2 63291 #### [facility],[address] [place] [address] 71341 Glucose Ql (U) 250 Abnormal NORMAL: NORMAL [facility] Comment on above: Performed By: #### 2 93472 #### [facility],[address] [place] [address] 77046 Hemoglobin Ql (U) Negative Normal NORMAL: NEGATIVE [facility] Comment on above: Performed By: #### 2 03829 #### [facility],[address] [place] [address] 78661 Ketone 150 Abnormal NORMAL: NEGATIVE [facility] Comment on above: Performed By: #### 2 56044 #### [facility],[address] [place] [address] 11941 Leukocytes 25 Abnormal NORMAL: NEGATIVE [facility] Comment on above: Performed By: #### 2 37159 #### [facility],[address] [place] [address] [address] Normal [facility] Comment on above: Performed By: #### 2 06458 #### [facility],[address] [place] [address] 81741 Nitrite Ql (U) Negative Normal NORMAL: NEGATIVE [facility] Comment on above: Performed By: #### 2 98788 #### [facility],[address] [place] [address] pH (U) 8 [pH] Normal NORMAL: 5.0-8.0 [facility] Comment on above: Performed By: #### 2 96336 #### [facility],[address] [place] [address] Protein Ql (U) 30 Abnormal NORMAL: NEGATIVE [facility] Comment on above: Performed By: #### 2 53399 #### [facility],[address] [place] [address] Rbc NONE Normal 0-3/hpf [facility] Comment on above: Performed By: #### 2 42091 #### [facility],[address] [place] [address] Sp [place] 1.010 Normal NORMAL: 1.010-1.030 [facility] Comment on above: Performed By: #### 2 99591 #### [facility],[address] [place] [address] Specimen Type UNSPECIFIED Normal [facility] Comment on above: Performed By: #### 2 97111 #### [facility],[address] [place] [address] Urinalysis dipstick W Reflex Microscopic panel (U) SEE BELOW Normal [facility] Comment on above: Result Comment: MICR OSCOPIC Performed By: #### 2 89636 #### [facility],[address] [place] [address] Urobilinog NORM Normal NORMAL: NORMAL [facility] Comment on above: Performed By: #### 2 57036 #### [facility],[address] [place] [address] Wbc 1-5 Normal 0-5/hpf [facility] Comment on above: Performed By: #### 2 58409 #### [facility],[address] [place] [address] [facility] Comment on above: Performed By: #### 2 60153 #### [facility],[address] [place] [address]84 .Auto Diffon 02-11-2023 Basophil, Absolute 0.1 10 3/mcL Normal 0.0-0.2 [facility] ([place]) Comment on above: Performed By: #### A DIFF, GFR, MDW, CMP, ANEU, CBC, LIP #### [address] [address] Basophils/100 WBC (Bld) 0.5 % Normal 0.0-2.5 A [facility] ([place]) Comment on above: Performed By: #### A DIFF, GFR, MDW, CMP, ANEU, CBC, LIP #### [address] [address] Eosinophil, Absolute 0.0 10 3/mcL Normal 0.0-0.4 [facility] ([place]) Comment on above: Performed By: #### A DIFF, GFR, MDW, CMP, ANEU, CBC, LIP #### [address] [address] Eosinophils/100 WBC (Bld) 0.2 % Normal 0.0-7.0 [facility] ([place]) Comment on above: Performed By: #### A DIFF, GFR, MDW, CMP, ANEU, CBC, LIP #### [address] [address] Lymphocyte, Absolute 4.2 10 3/mcL High 0.8-3.9 [facility] ([place]) Comment on above: Performed By: #### A DIFF, GFR, MDW, CMP, ANEU, CBC, LIP #### [address] [address] Lymphocytes/100 WBC (Bld) 32.7 % Normal 10.0-50.0 [facility] ([place]) Comment on above: Performed By: #### A DIFF, GFR, MDW, CMP, ANEU, CBC, LIP #### [address] [address] Monocyte, Absolute 0.9 10 3/mcL Normal 0.2-1.0 [facility] ([place]) Comment on above: Performed By: #### A DIFF, GFR, MDW, CMP, ANEU, CBC, LIP #### [address] [address] Monocytes/100 WBC (Bld) 7.0 % Normal 1.7-13.0 A [facility] ([place]) Comment on above: Performed By: #### A DIFF, GFR, MDW, CMP, ANEU, CBC, LIP #### [address] [address] Neutrophils/100 WBC (Bld) 59.6 % Normal 37.0-80.0 [facility] ([place]) Comment on above: Performed By: #### A DIFF, GFR, MDW, CMP, ANEU, CBC, LIP #### [address] [address] Basophil, Absolute 0.1 10 3/mcL Normal 0.0-0.2 [facility] ([place]) Comment on above: Performed By: #### C MP, GFR, CBC, LIP, ADIFF, ANEU, MDW #### [address] [address] Basophils/100 WBC (Bld) 0.6 % Normal 0.0-2.5 A [facility] ([place]) Comment on above: Performed By: #### C MP, GFR, CBC, LIP, ADIFF, ANEU, MDW #### [address] [address] Eosinophil, Absolute 0.0 10 3/mcL Normal 0.0-0.4 [facility] ([place]) Comment on above: Performed By: #### C MP, GFR, CBC, LIP, ADIFF, ANEU MDW #### [address] [address] Eosinophils/100 WBC (Bld) 0.1 % Normal 0.0-7.0 [facility] ([place]) Comment on above: Performed By: #### C MP, GFR, CBC, LIP, ADIFF, ANEU, MDW #### [address] [address] Lymphocyte, Absolute 4.2 10 3/mcL High 0.8-3.9 [facility] ([place]) Comment on above: Performed By: #### C MP, GFR, CBC, LIP, ADIFF, ALDAIR MERRILL #### [address] [address] Lymphocytes/100 WBC (Bld) 26.5 % Normal 10.0-50.0 [facility] ([place]) Comment on above: Performed By: #### C MP, GFR, CBC, LIP, ADIFF, ALDAIR MERRILL #### [address] [address] Monocyte, Absolute 1.0 10 3/mcL Normal 0.2-1.0 [facility] ([place]) Comment on above: Performed By: #### C MP, GFR, CBC, LIP, ADIFF, ALDAIR MERRILL #### [address] [address] Monocytes/100 WBC (Bld) 6.1 % Normal 1.7-13.0 A [facility] ([place]) Comment on above: Performed By: #### C MP, GFR, CBC, LIP, ADIFFDESIRAE MDW #### [address] [address] Neutrophils/100 WBC (Bld) 66.7 % Normal 37.0-80.0 [facility] ([place]) Comment on above: Performed By: #### C MP, GFR, CBC, LIP, ADIFFDESIRAE MDW #### [address] [address] .GFRon 02-11-2023 GFR 63 ml/min/1.73sqm Normal [facility] ([place]) Comment on above: Result Comment: GFR Population [...] GFR, MDW, CMP, ANEU, CBC, LIP #### [address] [address] GFR Non- 52 ml/min/1.73sqm Normal [facility] ([place]) Comment on above: Result Comment: GFR Population [...] GFR, MDW, CMP, ANEU, CBC, LIP #### [address] [address] GFR Non- 42 ml/min/1.73sqm Normal [facility] ([place]) Comment on above: Result Comment: GFR Population [...] GFR, MDW, CMP, ANEU, CBC, LIP #### [address] [address] GFR 51 ml/min/1.73sqm Normal [facility] ([place]) Comment on above: Result Comment: GFR Population [...] GFR, MDW, CMP, ANEU, CBC, LIP #### [address] [address] .MDWon 02-11-2023 Monocyte Distribution Width 19.69 Normal 0.00-20.00 [facility] ([place]) Comment on above: Result Comment: For ED adult patients suspected of sepsis, MDW<=20.0 does not rule out sepsis or risk of sepsis Performed By: #### A DIFF, GFR, MDW, CMP, ANEU, CBC, LIP #### [address] [address] .NEUABSon 02-11-2023 Neutrophil, Absolute 7.6 10 3/mcL High 2.9-6.2 [facility] ([place]) Comment on above: Performed By: #### A DIFF, GFR, MDW, CMP, ANEU, CBC, LIP #### [address] [address] Neutrophil, Absolute 10.5 10 3/mcL High 2.9-6.2 A [facility] ([place]) Comment on above: Performed By: #### C MP, GFR, CBC, LIP, ADIFF, DESIRAE, MDW #### [place] [address] .Urinalysis Microscopic (AO) on 02-11-2023 UA Bacteria Trace Abnormal [facility] ([place]) Comment on above: Performed By: #### A DIFF, GFR, MDW, CMP, ANEU, CBC, LIP #### [place] [address] UA RBC None Seen Normal None Seen [facility] ([place]) Comment on above: Performed By: #### A DIFF, GFR, MDW, CMP, ANEU, CBC, LIP #### [place] [address] UA Squam Epithelial 0-5 Abnormal None Seen [facility] ([place]) Comment on above: Performed By: #### A DIFF, GFR, MDW, CMP, ANEU, CBC, LIP #### [place] [address] UA WBC 0-5 Abnormal None Seen [facility] ([place]) Comment on above: Performed By: #### A DIFF, GFR, MDW, CMP, ANEU, CBC, LIP #### [place] [address] A1Con 02-11-2023 HbA1c (Bld) [Mass fraction] 9.0 % High 4.3-6.4 [facility] ([place]) Comment on above: Performed By: #### A DIFF, GFR, MDW, CMP, ANEU, CBC, LIP #### [place] [address] CBCon 02-11-2023 Erythrocyte distribution width (RBC) [Ratio] 14.8 % High 11.5-14.5 [facility] ([place]) Comment on above: Performed By: #### A DIFF, GFR, MDW, CMP, ANEU, CBC, LIP #### [place] [address] Hematocrit (Bld) [Volume fraction] 34.6 % Low 37.0-47.0 [facility] ([place]) Comment on above: Performed By: #### A DIFF, GFR, MDW, CMP, ANEU, CBC, LIP #### [address] [address] Hgb 11.5 G/dL Low 12.0-16.0 [facility] ([place]) Comment on above: Performed By: #### A DIFF, GFR, MDW, CMP, ANEU, CBC, LIP #### [place] [address] MCH (RBC) [Entitic mass] 26.6 pg Low 27.0-31.2 [facility] ([place]) Comment on above: Performed By: #### A DIFF, GFR, MDW, CMP, ANEU, CBC, LIP #### [place] [address] MCHC 33.3 G/dL Normal 33.0-37.0 [facility] ([place]) Comment on above: Performed By: #### A DIFF, GFR, MDW, CMP, ANEU, CBC, LIP #### [place] [address] MCV (RBC) [Entitic vol] 80.0 fL Normal 80.0-94.0 A [facility] ([place]) Comment on above: Performed By: #### A DIFF, GFR, MDW, CMP, ANEU, CBC, LIP #### [address] [address] Platelet 332 10 3/mcL Normal 130-400 [facility] ([place]) Comment on above: Performed By: #### A DIFF, GFR, MDW, CMP, ANEU, CBC, LIP #### [address] [address] Platelet mean volume (Bld) [Entitic vol] 7.5 fL Normal 7.4-10.4 [facility] ([place]) Comment on above: Performed By: #### A DIFF, GFR, MDW, CMP, ANEU, CBC, LIP #### [address] [address] RBC 4.33 10 6/mcL Normal 4.20-5.40 [facility] ([place]) Comment on above: Performed By: #### A DIFF, GFR, MDW, CMP, ANEU, CBC, LIP #### [address] [address] WBC 12.7 10 3/mcL High 4.6-10.8 [facility] ([place]) Comment on above: Performed By: #### A DIFF, GFR, MDW, CMP, ANEU, CBC, LIP #### [address] [address] Erythrocyte distribution width (RBC) [Ratio] 14.9 % High 11.5-14.5 [facility] ([place]) Comment on above: Performed By: #### C MP, GFR, CBC, LIP, ADIFF, ALDAIR MERRILL #### [place] [address] Hematocrit (Bld) [Volume fraction] 38.8 % Normal 37.0-47.0 [facility] ([place]) Comment on above: Performed By: #### C MP, GFR, CBC, LIP, ADIFFDESIRAE MDW #### [place] [address] Hgb 12.7 G/dL Normal 12.0-16.0 [facility] ([place]) Comment on above: Performed By: #### C MP, GFR, CBC, LIP, ADIFF, ALDAIR MERRILL #### [address] [address] MCH (RBC) [Entitic mass] 26.6 pg Low 27.0-31.2 [facility] ([place]) Comment on above: Performed By: #### C MP, GFR, CBC, LIP, ADIFFDESIRAE MDW #### [place] [address] MCHC 32.8 G/dL Low 33.0-37.0 [facility] ([place]) Comment on above: Performed By: #### C MP, GFR, CBC, LIP, ADIFF, ALDAIR MERRILL #### [address] [address] MCV (RBC) [Entitic vol] 81.2 fL Normal 80.0-94.0 A [facility] ([place]) Comment on above: Performed By: #### C MP, GFR, CBC, LIP, ADDESIRAE ROMERO MDW #### [address] [address] Platelet 385 10 3/mcL Normal 130-400 [facility] ([place]) Comment on above: Performed By: #### C MP, GFR, CBC, LIP, ADIFF, ALDAIR MERRILL #### [address] [address] Platelet mean volume (Bld) [Entitic vol] 7.6 fL Normal 7.4-10.4 [facility] ([place]) Comment on above: Performed By: #### C MP, GFR, CBC, LIP, ADDESIRAE ROMERO MDW #### [place] [address] RBC 4.78 10 6/mcL Normal 4.20-5.40 [facility] ([place]) Comment on above: Performed By: #### C MP, GFR, CBC, LIP, ADDESIRAE ROMERO MDW #### [address] [address] WBC 15.8 10 3/mcL High 4.6-10.8 [facility] ([place]) Comment on above: Performed By: #### C MP, GFR, CBC, LIP, ADDESIRAE ROMERO MDW #### [address] [address] CMPon 02-11-2023 ALT [Catalytic activity/Vol] 15 U/L Normal 14-59 [facility] ([place]) Comment on above: Performed By: #### A DIFF, GFRMDW, CMP, ANEU, CBC, LIP #### [address] [address] Albumin Level 3.0 G/dL Low 3.5-5.0 [facility] ([place]) Comment on above: Performed By: #### A DIFF, GFR, MDW, CMP, ANEU, CBC, LIP #### [address] [address] Albumin/Globulin [Mass ratio] 0.8 {ratio} Low 1.1-2.5 [facility] ([place]) Comment on above: Performed By: #### A DIFF, GFR, MDW, CMP, ANEU, CBC, LIP #### [address] [address] ALP [Catalytic activity/Vol] 78 U/L Normal 40-135 [facility] ([place]) Comment on above: Performed By: #### A DIFF, GFR, MDW, CMP, ANEU, CBC, LIP #### [address] [address] AST [Catalytic activity/Vol] 17 U/L Normal 10-40 [facility] ([place]) Comment on above: Performed By: #### A DIFF, GFR, MDW, CMP, ANEU, CBC, LIP #### [address] [address] Bili Total 0.6 mg/dL Normal 0.2-1.0 [facility] ([place]) Comment on above: Result Comment: Use of this assay is not recommended for patients undergoing treatment with eltrombopag due to the potential for falsely elevated results. Performed By: #### A DIFF, GFR, MDW, CMP, ANEU, CBC, LIP #### [address] [address] BUN/Creatinine Ratio 6 ratio Low 7-27 [facility] ([place]) Comment on above: Performed By: #### A DIFF, GFR, MDW, CMP, ANEU, CBC, LIP #### [address] [address] Calcium [Mass/Vol] 8.5 mg/dL Normal 8.4-10.2 [facility] ([place]) Comment on above: Performed By: #### A DIFF, GFR, MDW, CMP, ANEU, CBC, LIP #### [address] [address] Chloride [Moles/Vol] 96 mmol/L Low 98-107 [facility] ([place]) Comment on above: Performed By: #### A DIFF, GFR, MDW, CMP, ANEU, CBC, LIP #### [address] [address] CO2 [Moles/Vol] 29 mmol/L Normal 22-29 [facility] ([place]) Comment on above: Performed By: #### A DIFF, GFR, MDW, CMP, ANEU, CBC, LIP #### [address] [address] Creatinine [Mass/Vol] 1.21 mg/dL High 0.55-1.02 [facility] ([place]) Comment on above: Performed By: #### A DIFF, GFR, MDW, CMP, ANEU, CBC, LIP #### [address] [address] Electrolyte Balance 11.0 mEq/L Normal 4.0-15.0 [facility] ([place]) Comment on above: Performed By: #### A DIFF, GFR, MDW, CMP, ANEU, CBC, LIP #### [address] [address] Globulin 3.7 G/dL Normal [facility] ([place]) Comment on above: Performed By: #### A DIFF, GFR, MDW, CMP, ANEU, CBC, LIP #### [address] [address] Glucose [Mass/Vol] 246 mg/dL High 70-105 [facility] ([place]) Comment on above: Performed By: #### A DIFF, GFR, MDW, CMP, ANEU, CBC, LIP #### [address] [address] Potassium [Moles/Vol] 3.5 mmol/L Normal 3.5-5.1 [facility] ([place]) Comment on above: Performed By: #### A DIFF, GFR, MDW, CMP, ANEU, CBC, LIP #### [address] [address] Sodium [Moles/Vol] 136 mmol/L Normal 136-145 [facility] ([place]) Comment on above: Performed By: #### A DIFF, GFR, MDW, CMP, ANEU, CBC, LIP #### [address] [address] Total Protein 6.7 G/dL Normal 6.4-8.2 [facility] ([place]) Comment on above: Performed By: #### A DIFF, GFR, MDW, CMP, ANEU, CBC, LIP #### [address] [address] Urea nitrogen [Mass/Vol] 7 mg/dL Normal 7-18 [facility] ([place]) Comment on above: Performed By: #### A DIFF, GFR, MDW, CMP, ANEU, CBC, LIP #### [address] [address] Albumin Level 3.7 G/dL Normal 3.5-5.0 [facility] ([place]) Comment on above: Performed By: #### A DIFF, GFR, MDW, CMP, ANEU, CBC, LIP #### [address] [address] Albumin/Globulin [Mass ratio] 0.8 {ratio} Low 1.1-2.5 [facility] ([place]) Comment on above: Performed By: #### A DIFF, GFR, MDW, CMP, ANEU, CBC, LIP #### [address] [address] ALP [Catalytic activity/Vol] 88 U/L Normal 40-135 [facility] ([place]) Comment on above: Performed By: #### A DIFF, GFR, MDW, CMP, ANEU, CBC, LIP #### [address] [address] ALT [Catalytic activity/Vol] 16 U/L Normal 14-59 [facility] ([place]) Comment on above: Performed By: #### A DIFF, GFR, MDW, CMP, ANEU, CBC, LIP #### [address] [address] AST [Catalytic activity/Vol] 10 U/L Normal 10-40 [facility] ([place]) Comment on above: Performed By: #### A DIFF, GFR, MDW, CMP, ANEU, CBC, LIP #### [address] [address] Bili Total 0.9 mg/dL Normal 0.2-1.0 [facility] ([place]) Comment on above: Result Comment: Use of this assay is not recommended for patients undergoing treatment with eltrombopag due to the potential for falsely elevated results. Performed By: #### A DIFF, GFR, MDW, CMP, ANEU, CBC, LIP #### [address] [address] BUN/Creatinine Ratio 6 ratio Low 7-27 [facility] ([place]) Comment on above: Performed By: #### A DIFF, GFR, MDW, CMP, ANEU, CBC, LIP #### [address] [address] Calcium [Mass/Vol] 9.4 mg/dL Normal 8.4-10.2 [facility] ([place]) Comment on above: Performed By: #### A DIFF, GFR, MDW, CMP, ANEU, CBC, LIP #### [address] [address] Chloride [Moles/Vol] 90 mmol/L Low 98-107 [facility] ([place]) Comment on above: Performed By: #### A DIFF, GFR, MDW, CMP, ANEU, CBC, LIP #### [address] [address] CO2 [Moles/Vol] 30 mmol/L High 22-29 [facility] ([place]) Comment on above: Performed By: #### A DIFF, GFR, MDW, CMP, ANEU, CBC, LIP #### [address] [address] Creatinine [Mass/Vol] 1.45 mg/dL High 0.55-1.02 [facility] ([place]) Comment on above: Performed By: #### A DIFF, GFR, MDW, CMP, ANEU, CBC, LIP #### [address] [address] Electrolyte Balance 7.0 mEq/L Normal 4.0-15.0 [facility] ([place]) Comment on above: Performed By: #### A DIFF, GFR, MDW, CMP, ANEU, CBC, LIP #### [address] [address] Globulin 4.4 G/dL Normal [facility] ([place]) Comment on above: Performed By: #### A DIFF, GFR, MDW, CMP, ANEU, CBC, LIP #### [address] [address] Glucose [Mass/Vol] 307 mg/dL High 70-105 [facility] ([place]) Comment on above: Performed By: #### A DIFF, GFR, MDW, CMP, ANEU, CBC, LIP #### [address] [address] Potassium [Moles/Vol] 3.5 mmol/L Normal 3.5-5.1 [facility] ([place]) Comment on above: Performed By: #### A DIFF, GFR, MDW, CMP, ANEU, CBC, LIP #### [address] [address] Sodium [Moles/Vol] 127 mmol/L Low 136-145 [facility] ([place]) Comment on above: Performed By: #### A DIFF, GFR, MDW, CMP, ANEU, CBC, LIP #### [address] [address] Total Protein 8.1 G/dL Normal 6.4-8.2 [facility] ([place]) Comment on above: Performed By: #### A DIFF, GFR, MDW, CMP, ANEU, CBC, LIP #### [address] [address] Urea nitrogen [Mass/Vol] 8 mg/dL Normal 7-18 [facility] ([place]) Comment on above: Performed By: #### A DIFF, GFR, MDW, CMP, ANEU, CBC, LIP #### [address] [place], [place] [address] LABORATORYOrdered By: Harriet Cope ast on 02-11-2023 Blood Glucose Testing Reason Routine (02/11/23 4:15 PM) [facility] Work Phone: Glucose [Mass/Vol] 203 mg/dL Invalid Interpretation Code 70 - 110 mg/dL [facility] Work Phone: Blood Glucose Testing Reason Routine (02/11/23 7:15 AM) [facility] Work Phone: Glucose [Mass/Vol] 237 mg/dL Invalid Interpretation Code 70 - 110 mg/dL [facility] Work Phone: LABORATORYOrdered By: Manjinder Boogie on 02-11-2023 Blood Glucose Testing Reason Routine (02/11/23 12:04 PM) [facility] Work Phone: Glucose [Mass/Vol] 220 mg/dL Invalid Interpretation Code 70 - 110 mg/dL [facility] Work Phone: LABORATORYOrdered By: SYSTEM SYSTEM on [...] Lvl 1.7 mmol/L Normal 0.4-2.0 [facility] ([place]) Comment on above: Performed By: #### A DIFF, GFR, MDW, CMP, ANEU, CBC, LIP #### [address] [address] LIPon 02-11-2023 Lipase Level 39 U/L Normal 16-77 [facility] ([place]) Comment on above: Performed By: #### A DIFF, GFR, MDW, CMP, ANEU, CBC, LIP #### [facility] [address] [place], [place] [address] MGon 02-11-2023 Magnesium [Mass/Vol] 2.1 mg/dL Normal 1.8-2.4 [facility] ([place]) Comment on above: Performed By: #### A DIFF, GFR, MDW, CMP, ANEU, CBC, LIP #### [facility] [address] [place], [place] [address] NM GASTRIC EMPTYING STUDYon 02-11-2023 NM GASTRIC [...] Date: 02/11/2023 3:41:00 PM Ordering Provider: MARTI Maldonado [facility] ([place]) No Panel Informationon 02-11 Microscopic examination of blood, culture Culture has been received in lab and is no growth to date. Routine cultures are held for 5 days. [facility] Work Phone: PREGUon 02-11-2023 HCG ( test) Ql (U) Negative [facility] ([place]) Comment on above: Performed By: #### A DIFF, GFR, MDW, CMP, ANEU, CBC, LIP #### [address] [address] test (u) int Not detected Invalid Interpretation Code [facility] ([place]) Comment on above: Performed By: #### A DIFF, GFR, MDW, CMP, ANEU, CBC, LIP #### [address] [address] TOXSCon 02-11-2023 U Ampheta (AO) Negative [facility] ([place]) Comment on above: Performed By: #### A DIFF, GFR, MDW, CMP, ANEU, CBC, LIP #### [address] [address] U Marifer (AO) Negative [facility] ([place]) Comment on above: Performed By: #### A DIFF, GFR, MDW, CMP, ANEU, CBC, LIP #### [address] [address] U Ayan (AO) Negative [facility] ([place]) Comment on above: Performed By: #### A DIFF, GFR, MDW, CMP, ANEU, CBC, LIP #### [address] [address] U Cannab (AO) Positive Normal [facility] ([place]) Comment on above: Performed By: #### A DIFF, GFR, MDW, CMP, ANEU, CBC, LIP #### [address] [address] U Cocaine (AO) Negative [facility] ([place]) Comment on above: Performed By: #### A DIFF, GFR, MDW, CMP, ANEU, CBC, LIP #### [address] [address] U Methadone (AO) Negative [facility] ([place]) Comment on above: Performed By: #### A DIFF, GFR, MDW, CMP, ANEU, CBC, LIP #### [address] [address] U PCP (AO) Negative Normal [facility] ([place]) Comment on above: Performed By: #### A DIFF, GFR, MDW, CMP, ANEU, CBC, LIP #### [address] [address] U TCA (AO) Negative Normal [facility] ([place]) Comment on above: Performed By: #### A DIFF, GFR, MDW, CMP, ANEU, CBC, LIP #### [address] [address] Urine Opiates (AO) Positive Normal [facility] ([place]) Comment on above: Performed By: #### A DIFF, GFR, MDW, CMP, ANEU, CBC, LIP #### [address] [address] UAon 02-11-2023 Color (U) Yellow Normal [facility] ([place]) Comment on above: Performed By: #### A DIFF, GFR, MDW, CMP, ANEU, CBC, LIP #### [address] [address] Glucose (U) [Mass/Vol] 100 mg/dL Abnormal Negative [facility] ([place]) Comment on above: Performed By: #### A DIFF, GFR, MDW, CMP, ANEU, CBC, LIP #### [address] [address] Ketones Ql (U) Negative Normal Negative [facility] ([place]) Comment on above: Performed By: #### A DIFF, GFR, MDW, CMP, ANEU, CBC, LIP #### [address] [address] UA Appear Clear Normal Clear [facility] ([place]) Comment on above: Performed By: #### A DIFF, GFR, MDW, CMP, ANEU, CBC, LIP #### [address] [address] UA Blood Trace Abnormal Negative [facility] ([place]) Comment on above: Performed By: #### A DIFF, GFR, MDW, CMP, ANEU, CBC, LIP #### [address] [address] UA Leuk Est Negative Normal Negative [facility] ([place]) Comment on above: Performed By: #### A DIFF, GFR, MDW, CMP, ANEU, CBC, LIP #### [place] [address] UA Nitrite Negative Normal Negative [facility] ([place]) Comment on above: Performed By: #### A DIFF, GFR, MDW, CMP, ANEU, CBC, LIP #### [place] [address] UA pH 7.0 Normal 5.0 - 8.0 [facility] ([place]) Comment on above: Performed By: #### A DIFF, GFR, MDW, CMP, ANEU, CBC, LIP #### [place] [address] UA Protein Negative Normal Negative [facility] ([place]) Comment on above: Performed By: #### A DIFF, GFR, MDW, CMP, ANEU, CBC, LIP #### [place] [address] UA Spec Grav 1.015 Normal 1.015-1.025 [facility] ([place]) Comment on above: Performed By: #### A DIFF, GFR, MDW, CMP, ANEU, CBC, LIP #### [place] [address] UA Specimen Type Void Normal [facility] ([place]) Comment on above: Performed By: #### A DIFF, GFR, MDW, CMP, ANEU, CBC, LIP #### [place] [address] UA Urobilinogen 0.2 E.U./dL Normal 0.2-1.0 [facility] ([place]) Comment on above: Performed By: #### A DIFF, GFR, MDW, CMP, ANEU, CBC, LIP #### [facility] [place] [address] [place], [place] [address] Urobilinogen (U) [Mass/Vol] Negative Normal Negative [facility] ([place]) Comment on above: Performed By: #### A DIFF, GFR, MDW, CMP, ANEU, CBC, LIP #### [address] [address] Color (U) Yellow Normal [facility] ([place]) Comment on above: Performed By: #### A DIFF, GFR, MDW, CMP, ANEU, CBC, LIP #### [address] [address] Glucose (U) [Mass/Vol] 100 mg/dL Abnormal Negative [facility] ([place]) Comment on above: Performed By: #### A DIFF, GFR, MDW, CMP, ANEU, CBC, LIP #### [address] [address] Ketones Ql (U) 15 mg/dL Abnormal Negative [facility] ([place]) Comment on above: Performed By: #### A DIFF, GFR, MDW, CMP, ANEU, CBC, LIP #### [address] [address] UA Appear Clear Normal Clear [facility] ([place]) Comment on above: Performed By: #### A DIFF, GFR, MDW, CMP, ANEU, CBC, LIP #### [address] [address] UA Blood Trace Abnormal Negative [facility] ([place]) Comment on above: Performed By: #### A DIFF, GFR, MDW, CMP, ANEU, CBC, LIP #### [address] [address] UA Leuk Est Trace Abnormal Negative [facility] ([place]) Comment on above: Performed By: #### A DIFF, GFR, MDW, CMP, ANEU, CBC, LIP #### [address] [address] UA Nitrite Negative Normal Negative [facility] ([place]) Comment on above: Performed By: #### A DIFF, GFR, MDW, CMP, ANEU, CBC, LIP #### [address] [address] UA pH 5.5 Normal 5.0 - 8.0 [facility] ([place]) Comment on above: Performed By: #### A DIFF, GFR, MDW, CMP, ANEU, CBC, LIP #### [address] [address] UA Protein Negative Normal Negative [facility] ([place]) Comment on above: Performed By: #### A DIFF, GFR, MDW, CMP, ANEU, CBC, LIP #### [address] [address] UA Spec Grav <=1.005 Abnormal 1.015-1.025 [facility] ([place]) Comment on above: Performed By: #### A DIFF, GFR, MDW, CMP, ANEU, CBC, LIP #### [address] [address] UA Specimen Type Clean Catch Normal [facility] ([place]) Comment on above: Performed By: #### A DIFF, GFR, MDW, CMP, ANEU, CBC, LIP #### [address] [address] UA Urobilinogen 0.2 E.U./dL Normal 0.2-1.0 [facility] ([place]) Comment on above: Performed By: #### A DIFF, GFR, MDW, CMP, ANEU, CBC, LIP #### [address] [address] Urobilinogen (U) [Mass/Vol] Negative Normal Negative [facility] ([place]) Comment on above: Performed By: #### A DIFF, GFR, MDW, CMP, ANEU, CBC, LIP #### [address] [address] US ABDOMEN COMPLETEon 2022 US ABDOMEN COMPLETE [...] Date: 02/11/2023 1:29:01 PM Ordering Provider: MARTI WEBB [facility] ([place]) US PELVIS NON-OB W/TRANSVAGI NALon 02-11-2023 US [...] 02/11/2023 12:11:13 PM Ordering Provider: MARTI WEBB [facility]) XR ABDOMEN APon 02-11-2023 XR ABDOMEN AP [...] 02/11/2023 9:28:54 AM Ordering Provider: MARTI WEBB [facility]) LABORATORYOrdered By: SYSTEM SYSTEM on 02-10-2023 Albumin [...] Auto (Unsp spec) [#/Vol] 1.67 10*3/uL 0.83-4.51 [facility] Amorphous sediment detection in urine sediment by light microscopyOrdered By: Javy Doss on 02-08-2023 Amorphous sediment LM Ql (Urine sed) 3+ PHOS [facility] Basophil percentageOrdered B y: Javy Doss on 02-08-2023 Basophil percentage 0-5 SEEN /hpf 0-5 [facility] Basophil percentage 325 mg/dL 74-106 [facility] Basophil percentage 9.2 g/dL 6.4-8.2 [facility] Basophil percentage 0.70 mg/dL 0.20-1.00 [facility] Basophil percentage 134 mmol/L 136-145 [facility] Basophil percentage 3.7 mmol/L 3.5-5.1 [facility] Basophil percentage 96 mmol/L 98-107 [facility] Basophils (Bld) [#/Vol] 9.1 10*3/uL 4.4-11.0 [facility] Basophils (Bld) [#/Vol] 7.0 10*3/uL 2.0-7.7 [facility] Basophils/100 WBC (Bld) 0.2 % 0-1 [facility] Basophils/100 WBC (Bld) 77.0 % 47-70 [facility] Basophils/100 WBC (Bld) 0.0 % 0-5 [facility] Bilirubin [Mass/Vol] 0.70 mg/dL 0.20-1.00 [facility] Comment on above: For patients on eltr ombopag therapy, use of Dimension [place] TBIL is not recommended. Chloride [Moles/Vol] 96 mmol/L 98-107 [facility] Eosinophils/100 WBC (Bld) 0.0 % 0-5 [facility] Glucose [Mass/Vol] 325 mg/dL 74-106 [facility] Comment on above: Glucose result great er than or equal to 200 mg/dLsuggests DIABETES MELLITUS per A.D.A. criteria. Neutrophils (Bld) [#/Vol] 7.0 10*3/uL 2.0-7.7 [facility] Neutrophils/100 WBC (Bld) 77.0 % 47-70 [facility] Potassium [Moles/Vol] 3.7 mmol/L 3.5-5.1 [facility] Protein [Mass/Vol] 9.2 g/dL 6.4-8.2 [facility] Sodium [Moles/Vol] 134 mmol/L 136-145 [facility] WBC (Bld) [#/Vol] 9.1 10*3/uL 4.4-11.0 [facility] Beta hCG serum qualOrdered B y: Javy Doss on 02-08-2023 Beta HCG ( test) Ql Negative [facility] Bilirubin Test strip Ql (U)O rdered By: Javy Doss on 02-08-2023 Bilirubin Ql (U) Negative Negative [facility] Blood erythrocytes count (nu mber/volume)Ordered By: Javy Doss on 02-08-2023 RBC (Bld) [#/Vol] 5.27 10*6/uL 4.2-5.4 [facility] Blood hemoglobin measurement (mass/volume)Ordered By: Javy Doss on 02-08-2023 Hemoglobin (Bld) [Mass/Vol] 13.9 g/dL 12.0-15.0 [facility] Blood lymphocytes/100 leukoc ytesOrdered By: Javy Doss on 02-08-2023 Lymphocytes/100 WBC (Bld) 18.4 % 19-41 [facility] Blood monocytes/100 leukocyt esOrdered By: Javy Doss on 02-08-2023 Monocytes/100 WBC (Bld) 3.6 % 0-10 [facility] Blood platelet mean volumeOr dered By: Javy Doss on 02-08-2023 Platelet mean volume (Bld) [Entitic vol] 9.3 fL 6.2-12.0 [facility] Determination of erythrocyte mean corpuscular volume (MCV)Ordered By: Javy Doss on 02-08-2023 MCV (RBC) [Entitic vol] 81.2 fL 81-99 [facility] Hematocrit Auto (Bld) [Volum e fraction]Ordered By: Javy Doss on 02-08-2023 Hematocrit (Bld) [Volume fraction] 42.8 % 37-47 [facility] Ketones Test strip Ql (U)Ord ered By: Javy Doss on 02-08-2023 Ketones Ql (U) 50 mg/dl Negative [facility] Laboratory - Chemistry and C hemistry - challengeOrdered By: Javy Doss on 02-08-2023 ALP [Catalytic activity/Vol] 105 U/L 45-117 [facility] ALT [Catalytic activity/Vol] 24 U/L 13-56 [facility] CO2 [Moles/Vol] 30.0 mmol/L 21.0-32.0 [facility] Globulin (S) [Mass/Vol] 5.4 g/dL 2.2-4.2 [facility] Lipase [Catalytic activity/Vol] 38 U/L 13-75 [facility] Comment on above: Please note:LIPASE r evised reference range effective 22. New Lipase methodology. Expected to produce lower values than the previous assay method. NEW Reference Range: 13 - 75 U/L Urea nitrogen/Creatinine [Mass ratio] 7.4 mg/mg 10-20 [facility] Laboratory - Hematology and Cell countsOrdered By: Javy Doss on 02-08-2023 Erythrocyte distribution width (RBC) [Entitic vol] 39.1 fL 35.1-43.9 [facility] Erythrocyte distribution width (RBC) [Ratio] 13.3 % 11.6-14.6 [facility] Immature granulocytes/100 WBC (Bld) 0.800 % 0.0-0.9 [facility] Comment on above: IG% - Immature Granu locytes (promyelocytes, myelocytes and metamyelocytes) > 1% indicates that a LEFT SHIFT is Present. MCH (RBC) [Entitic mass] 26.4 pg 27.0-32.0 [facility] Nucleated RBC/100 WBC (Bld) [Ratio] 0 % 0-5 [facility] MCHC Auto (RBC) [Mass/Vol]Or dered By: Javy Doss on 02-08-2023 MCHC (RBC) [Mass/Vol] 32.5 g/dL 32-36 [facility] Mucus LM Ql (Urine sed)Order ed By: Javy Doss on 02-08-2023 Mucus Ql (Urine sed) 0 SEEN /hpf [facility] Nitrite Test strip Ql (U)Ord ered By: Jvay Doss on 02-08-2023 Nitrite Ql (U) Negative Negative [facility] No Panel InformationOrdered By: Javy Doss on 02-08-2023 Estimated Creatinine Clearance Calc 62.55 ml/min [facility] Estimated GFR (MDRD) Amer 66 mL/min >60 [facility] Comment on above: GFR Calc Estimated GFR (MDRD) Non-Af Amer 55 mL/min >60 [facility] Comment on above: Non- GFR Calc 26.4 pg 27.0-32.0 [facility] 13.3 % 11.6-14.6 [facility] 39.1 fl 35.1-43.9 [facility] 0.800 % 0.0-0.9 [facility] 0 % 0-5 [facility] 55 mL/min >60 [facility] 66 mL/min >60 [facility] 62.55 ml/min [facility] 7.4 RATIO 10-20 [facility] 5.4 g/dL 2.2-4.2 [facility] 38 U/L 13-75 [facility] 105 U/L 45-117 [facility] 24 U/L 13-56 [facility] 30.0 mmol/L 21.0-32.0 [facility] Platelets bldOrdered By: Haylee benitez Romario on 02-08-2023 Platelets (Bld) [#/Vol] 394 10*3/uL 150-450 [facility] Protein Test strip Ql (U)Ord ered By: Javy Romario on 02-08-2023 Protein Ql (U) 30 mg/dl Negative [facility] Serum or plasma albumin hussein urement (mass/volume)Ordered By: Javy Zamudiomeño on 02-08-2023 Albumin [Mass/Vol] 3.8 g/dL 3.2-5.0 [facility] Serum or plasma albumin/glob ulin mass ratioOrdered By: Javy Romario on 02-08-2023 Albumin/Globulin [Mass ratio] 0.7 {ratio} 0.9-2.4 [facility] Serum or plasma calcium hussein urement (mass/volume)Ordered By: [facility] Lizzme[facility] on 02-08-2023 Calcium [Mass/Vol] 9.7 mg/dL 8.5-10.1 [facility] Serum or plasma creatinine m easurement (mass/volume)Ordered By: Remus Zamudiomeño on 02-08-2023 Creatinine [Mass/Vol] 1.22 mg/dL 0.55-1.02 [facility] Comment on above: The validity of the calculated GFR & GFRAA in patients over 70 years has not been determined. Clinical correlation is essential. Serum or plasma urea nitroge n measurement (mass/volume)Ordered By: Javy Doss on 02-08-2023 Urea nitrogen [Mass/Vol] 9 mg/dL 7-18 [facility] Squamous epithelial cells de tection in urine sediment by light microscopyOrdered By: Javy Doss on 02-08-2023 Epithelial cells.squamous LM Ql (Urine sed) 0-5 SEEN /hpf 5-10 [facility] Thin prep Papanicolaou smear with manual screeningOrdered By: Javy Doss on 02-08-2023 Thin prep Papanicolaou smear with manual screening 15 U/L 15-37 [facility] Thin prep Papanicolaou smear with manual screening 8 5-15 [facility] Urine blood detectionOrdered By: Javy Doss on 02-08-2023 RBC Ql (U) Negative Negative [facility] RBC Ql (U) 0 SEEN /hpf 0-5 [facility] Urine clarityOrdered By: Haylee Doss on 02-08-2023 Clarity (U) Sl. Cloudy Clear [facility] Urine color determinationOrd ered By: Javy Doss on 02-08-2023 Color (U) Yellow Yellow [facility] Urine glucose detectionOrder ed By: Javy Doss on 02-08-2023 Glucose Ql (U) 1000 mg/dl Normal [facility] Urine leukocyte esterase det ection by dipstickOrdered By: Javy Doss on 02-08-2023 Leukocyte esterase Test strip Ql (U) 25 /ul Negative [facility] Urine pHOrdered By: Javy Tee gur on 02-08-2023 pH (U) 8.0 [pH] 5.0 - 8.0 [facility] Urine sediment bacteria coun t by microscopy (number/high power field)Ordered By: Javy Doss on 02-08-2023 Bacteria LM.HPF (Urine sed) [#/Area] 0 /[HPF] None Seen [facility] Urine specific gravity measu rementOrdered By: Javy Doss on 02-08-2023 Specific gravity (U) [Rel density] 1.010 1.002-1.030 [facility] Urobilinogen Auto test strip Ql (U)Ordered By: Javy Doss on 02-08-2023 Urobilinogen Ql (U) Normal mg/dl Normal [facility] Absolute lymphocyte countOrd ered By: Fabricio Guevara on 02-04-2023 Lymphocytes Auto (Unsp spec) [#/Vol] 3.25 10*3/uL 0.83-4.51 [facility] Basophil percentageOrdered B y: Fabricio Guevara on 02-04-2023 Basophil percentage 259 mg/dL 74-106 [facility] Basophil percentage 8.1 g/dL 6.4-8.2 [facility] Basophil percentage 0.40 mg/dL 0.20-1.00 [facility] Basophil percentage 138 mmol/L 136-145 [facility] Basophil percentage 3.5 mmol/L 3.5-5.1 [facility] Basophil percentage 103 mmol/L 98-107 [facility] Basophils (Bld) [#/Vol] 8.8 10*3/uL 4.4-11.0 [facility] Basophils (Bld) [#/Vol] 4.9 10*3/uL 2.0-7.7 [facility] Basophils/100 WBC (Bld) 0.3 % 0-1 [facility] Basophils/100 WBC (Bld) 55.7 % 47-70 [facility] Basophils/100 WBC (Bld) 0.5 % 0-5 [facility] Bilirubin [Mass/Vol] 0.40 mg/dL 0.20-1.00 [facility] Comment on above: For patients on eltr ombopag therapy, use of Dimension [place] TBIL is not recommended. Chloride [Moles/Vol] 103 mmol/L 98-107 [facility] Eosinophils/100 WBC (Bld) 0.5 % 0-5 [facility] Glucose [Mass/Vol] 259 mg/dL 74-106 [facility] Comment on above: Glucose result great er than or equal to 200 mg/dLsuggests DIABETES MELLITUS per A.D.A. criteria. Neutrophils (Bld) [#/Vol] 4.9 10*3/uL 2.0-7.7 [facility] Neutrophils/100 WBC (Bld) 55.7 % 47-70 [facility] Potassium [Moles/Vol] 3.5 mmol/L 3.5-5.1 [facility] Protein [Mass/Vol] 8.1 g/dL 6.4-8.2 [facility] Sodium [Moles/Vol] 138 mmol/L 136-145 [facility] WBC (Bld) [#/Vol] 8.8 10*3/uL 4.4-11.0 [facility] Blood erythrocytes count (nu mber/volume)Ordered By: Fabricio Guevara on 02-04-2023 RBC (Bld) [#/Vol] 4.65 10*6/uL 4.2-5.4 [facility] Blood hemoglobin measurement (mass/volume)Ordered By: Fabricio Guevara on 02-04-2023 Hemoglobin (Bld) [Mass/Vol] 12.5 g/dL 12.0-15.0 [facility] Blood lymphocytes/100 leukoc ytesOrdered By: Fabricio Guevara on 02-04-2023 Lymphocytes/100 WBC (Bld) 37.0 % 19-41 [facility] Blood monocytes/100 leukocyt esOrdered By: Fabricio Guevara on 02-04-2023 Monocytes/100 WBC (Bld) 5.8 % 0-10 [facility] Blood platelet mean volumeOr dered By: Fabricio Guevara on 02-04-2023 Platelet mean volume (Bld) [Entitic vol] 9.4 fL 6.2-12.0 [facility] Determination of erythrocyte mean corpuscular volume (MCV)Ordered By: Fabricio Guevara on 02-04-2023 MCV (RBC) [Entitic vol] 80.0 fL 81-99 [facility] Hematocrit Auto (Bld) [Volum e fraction]Ordered By: Fabricio Guevara on 02-04-2023 Hematocrit (Bld) [Volume fraction] 37.2 % 37-47 [facility] Laboratory - Chemistry and C hemistry - challengeOrdered By: Fabricio Guevara on 02-04-2023 ALP [Catalytic activity/Vol] 94 U/L 45-117 [facility] ALT [Catalytic activity/Vol] 29 U/L 13-56 [facility] CO2 [Moles/Vol] 25.0 mmol/L 21.0-32.0 [facility] Globulin (S) [Mass/Vol] 4.7 g/dL 2.2-4.2 [facility] Lipase [Catalytic activity/Vol] 51 U/L [facility] Comment on above: Please note:LIPASE r evised reference range effective 22. New Lipase methodology. Expected to produce lower values than the previous assay method. NEW Reference Range: 13 - 75 U/L Urea nitrogen/Creatinine [Mass ratio] 7.0 mg/mg - [facility] Laboratory - Hematology and Cell countsOrdered By: Fabricio Guevara on 02-04-2023 Erythrocyte distribution width (RBC) [Entitic vol] 39.2 fL 35.1-43.9 [facility] Erythrocyte distribution width (RBC) [Ratio] 13.6 % 11.6-14.6 [facility] Immature granulocytes/100 WBC (Bld) 0.700 % 0.0-0.9 [facility] Comment on above: IG% - Immature Granu locytes (promyelocytes, myelocytes and metamyelocytes) > 1% indicates that a LEFT SHIFT is Present. MCH (RBC) [Entitic mass] 26.9 pg 27.0-32.0 [facility] Nucleated RBC/100 WBC (Bld) [Ratio] 0 % 0-5 [facility] MCHC Auto (RBC) [Mass/Vol]Or dered By: Fabricio Guevara on 02-04-2023 MCHC (RBC) [Mass/Vol] 33.6 g/dL 32-36 [facility] No Panel InformationOrdered By: Fabricio Guevara on 02-04-2023 Estimated GFR (MDRD) Amer 84 mL/min >60 [facility] Estimated GFR (MDRD) Non-Af Amer 69 mL/min >60 [facility] 26.9 pg 27.0-32.0 [facility] 13.6 % 11.6-14.6 [facility] 39.2 fl 35.1-43.9 [facility] 0.700 % 0.0-0.9 [facility] 0 % 0-5 [facility] 69 mL/min >60 [facility] 84 mL/min >60 [facility] 7.0 RATIO 04-30 [facility] 4.7 g/dL 2.2-4.2 [facility] 51 U/L [facility] 94 U/L 45-117 [facility] 29 U/L 13-56 [facility] 25.0 mmol/L 21.0-32.0 [facility] Platelets bldOrdered By: Chidi Guevara on 02-04-2023 Platelets (Bld) [#/Vol] 358 10*3/uL 150-450 [facility] Serum or plasma albumin hussein urement (mass/volume)Ordered By: Fabricio Guevara on 02-04-2023 Albumin [Mass/Vol] 3.4 g/dL 3.2-5.0 [facility] Serum or plasma albumin/glob ulin mass ratioOrdered By: Fabricio Guevara on 02-04-2023 Albumin/Globulin [Mass ratio] 0.7 {ratio} 0.9-2.4 [facility] Serum or plasma calcium hussein urement (mass/volume)Ordered By: Fabricio Guevara on 02-04-2023 Calcium [Mass/Vol] 9.2 mg/dL 8.5-10.1 [facility] Serum or plasma creatinine m easurement (mass/volume)Ordered By: Fabricio Guevara on 02-04-2023 Creatinine [Mass/Vol] 1.00 mg/dL 0.55-1.02 [facility] Comment on above: The validity of the calculated GFR & GFRAA in patients over 70 years has not been determined. Clinical correlation is essential. Serum or plasma urea nitroge n measurement (mass/volume)Ordered By: Fabricio Guevara on 02-04-2023 Urea nitrogen [Mass/Vol] 7 mg/dL 7-18 [facility] Thin prep Papanicolaou smear with manual screeningOrdered By: Fabricio Guevara on 02-04-2023 Thin prep Papanicolaou smear with manual screening 18 U/L 15-37 [facility] Thin prep Papanicolaou smear with manual screening 10 5-15 [facility] CBC W Auto Differential pane l (Bld)Ordered By: Yashira Cleaning on 01-24-2023 Basophils (Bld) [#/Vol] 0.0 10*3/uL 0.0 - 0.2 10*3/uL [facility] [employer] Basophils/100 WBC (Bld) 0.3 % 0.0 - 2.0 % [facility] [employer] Eosinophils (Bld) [#/Vol] 0.0 10*3/uL 0.0 - 0.5 10*3/uL [facility] Eosinophils/100 WBC (Bld) 0.3 % Low 1.0 - 6.0 % [facility] Erythrocyte distribution width (RBC) [Ratio] 13.9 % 11.5 - 14.5 % [facility] Hematocrit (Bld) [Volume fraction] 37.2 % 35.0 - 47.0 % [facility] Hemoglobin (Bld) [Mass/Vol] 12.4 g/dL 11.7 - 16.0 g/dL [facility] Immature granulocytes (Bld) [#/Vol] 0.1 10*3/uL High NINF - 0.0 10*3/uL [facility] Immature granulocytes/100 WBC (Bld) 0.6 % High NINF - 0.0 % [facility] Interpretation and review of laboratory results Abnormal [facility] Lymphocytes (Bld) [#/Vol] 2.6 10*3/uL 1.0 - 4.3 10*3/uL [facility] Lymphocytes/100 WBC (Bld) 33.6 % 20.0 - 40.0 % [facility] MCH (RBC) [Entitic mass] 26.3 pg 26.0 - 34.0 pg [facility] MCHC (RBC) [Mass/Vol] 33.3 % 32.0 - 36.0 % [facility] MCV (RBC) [Entitic vol] 79.0 fL Low 80.0 - 98.0 fL [facility] Monocytes (Bld) [#/Vol] 0.5 10*3/uL 0.0 - 0.8 10*3/uL [facility] Monocytes/100 WBC (Bld) 5.9 % 2.0 - 10.0 % [facility] Neutrophils (Bld) [#/Vol] 4.6 10*3/uL 1.8 - 7.0 10*3/uL [facility] Neutrophils/100 WBC (Bld) 59.3 % 40.0 - 80.0 % [facility] Platelet mean volume (Bld) [Entitic vol] 9.1 fL 7.4 - 12.4 fL [facility] Comment on above: MPV is a calculated measurement using platelet volume ratio Platelets (Bld) [#/Vol] 342 10*3/uL 140 - 440 10*3/uL [facility] RBC (Bld) [#/Vol] 4.71 10*6/uL 3.8 - 5.20 10*6/uL [facility] WBC (Bld) [#/Vol] 7.8 10*3/uL 3.6 - 10.7 10*3/uL [facility] Comprehensive metabolic 1998 panelon 01-24-2023 Albumin [Mass/Vol] 4.2 g/dL 3.5 - 5.0 g/dL [facility] ALP [Catalytic activity/Vol] 74 U/L 38 - 126 U/L [facility] ALT [Catalytic activity/Vol] 20 U/L 0 - 34 U/L [facility] Anion gap [Moles/Vol] 10 mmol/L 3 - 13 mmol/L [facility] AST [Catalytic activity/Vol] 28 U/L 15 - 46 U/L [facility] Bilirubin [Mass/Vol] 0.7 mg/dL 0.2 - 1 .3 mg/dL [facility] Calcium [Mass/Vol] 9.4 mg/dL 8.4 - 10. 4 mg/dL [facility] Chloride [Moles/Vol] 100 mmol/L 98 - 10 7 mmol/L [facility] CO2 [Moles/Vol] 25 mmol/L 22 - 30 mmol/L [facility] Creatinine [Mass/Vol] 0.78 mg/dL 0.52 - 1.04 mg/dL [facility] GFR/1.73 sq M.predicted MDRD (S/P/Bld) [Vol rate/Area] - PINF [facility] Comment on above: Calculation based on the Chronic Kidney Disease Epidemiology Collaboration (CKD-EPI) equation refit without adjustment for race Glucose [Mass/Vol] 220 mg/dL High 70 - 100 mg/dL [facility] Interpretation and review of laboratory results Abnormal [facility] Potassium [Moles/Vol] 3.6 mmol/L 3.5 - 5.1 mmol/L [facility] Protein [Mass/Vol] 8.1 g/dL 6.3 - 8.2 g/dL [facility] Sodium [Moles/Vol] 135 mmol/L 135 - 145 mmol/L [facility] Urea nitrogen [Mass/Vol] 9 mg/dL 7 - 17 mg/dL [facility] ECG 12-LEADon 01-24-2023 ECG 12-LEAD IMPRESSION: SINUS RHYTHM VENTRICULAR PREMATURE COMPLEX CONSIDER LEFT VENTRICULAR HYPERTROPHY No previous ECG available for comparison Electronically Signed On 01-24-2023 11:21:48 EDT by Abdirizak Ramirez [facility] ED Nursing Noteon 01-24-2023 ED Nursing Note Patient to room 15 w ith c/o vomiting for 3 weeks. Patient reports being at [facility] and being told it was [facility], and there was nothing more they could do for her. Patient reports having Zofran at home that she doesn't take, because it has not relieved her symptoms. V/S obtained, call light within reach. Normal [facility] ED Provider Noteon ED Provider Note [facility] ED EMERGENCY DEPARTMENT ENCOUNTER Pt Name: Ghislaine [...] - Normal (more content not included)... Normal [facility] Laboratory - Chemistry and C hemistry - challengeon 01-24-2023 Troponin I.cardiac [Mass/Vol] ng/mL 0.000 - 0.034 ng/mL [facility] Lipase [Catalytic activity/Vol] 130 U/L 23 - 300 U/L [facility] Magnesium [Mass/Vol] 1.8 mg/dL 1.6 - 2 .3 mg/dL [facility] Beta HCG ( test) Ql Negative Negative [facility] Comment on above: Please note: Very di lute urine specimens, as indicated by a low specific gravity, may not contain insurance follow up representative levels of hCG. If is still suspected, a first morning urine specimen should be collected 48 hours later and tested. Beta HCG ( test) Ql (U) is the most common reason for HCG in urine, although choriocarcinoma, hydatidiform mole, and certain nontrophoblastic malignancies also result in detectable urinary HCG levels. Sensitivity = 20mIU/mL. [facility] [employer] No Panel Informationon 01-24 P [place] -3 degrees [facility] [place] Interval 128 ms [facility] QRS [place] -11 degrees [facility] QRSD Interval 86 ms [facility] h QT Interval 396 ms [facility] QTC Interval 425 ms [facility] T Wave [place] 8 degrees [facility] SINUS RHYTHM VENTRICULAR PREMATURE COMPLEX CONSIDER LEFT VENTRICULAR HYPERTROPHY No previous ECG available for comparison Electronically Signed On 01-24-2023 11:21:48 EDT by Abdirizak Ramirez CV Abdirizak Camacho MD - 01/24/2023 IMPRESSION: SINUS RHYTHM VENTRICULAR PREMATURE COMPLEX CONSIDER LEFT VENTRICULAR HYPERTROPHY No previous ECG available for comparison Electronically Signed On 01-24-2023 11:21:48 EDT by Abdirizak Ramirez [facility] Interpretation and review of laboratory results Normal [facility] Troponin I.cardiac [Mass/Vol ]on 01-24-2023 Interpretation and review of laboratory results Normal [facility] Patients with high levels of Biotin oral intake (ie >5 mg/day) may have falsely decreased Troponin levels. [facility] Urinalysis complete panel (U )on 01-24-2023 Amorphous Crystals, Urine Few Abnormal Negative /HPF [facility] Bacteria LM.HPF (Urine sed) [#/Area] Few Abnormal Negative /HPF [facility] Bilirubin Ql (U) Negative Negative mg/dL [facility] Clarity (U) Turbid Abnormal Clear [facility] Color (U) Yellow Lt. Yellow [facility] Epithelial cells.squamous LM.HPF (Urine sed) [#/Area] 11-25 Abnormal [facility] Glucose Ql (U) 500 mg/dL Abnormal Normal (<70) [facility] Hemoglobin Ql (U) Negative Negative mg/dL [facility] Interpretation and review of laboratory results Abnormal [facility] Ketones (U) [Mass/Vol] 20 mg/dL Abnormal Negative [facility] Leukocyte esterase Test strip Ql (U) 250 Abnormal Negative [place]/uL [facility] Mucus LM.HPF (Urine sed) [#/Area] Few Negative /LPF [facility] Nitrite Ql (U) Negative Negative [facility] th pH (U) 6.5 [pH] 5.0 - 8.0 pH [facility] Protein (U) [Mass/Vol] 20 mg/dL Abnormal Negative [facility] RBC LM.HPF (Urine sed) [#/Area] 0-2 [facility] Specific gravity (U) [Rel density] 1.016 1.005 - 1.030 [facility] Urobilinogen (U) [Mass/Vol] Normal Normal (0-1) mg/dL [facility] Volume, Urine 12 mL [facility] WBC LM.HPF (Urine sed) [#/Area] 6-10 Abnormal [facility] Vital signson 01-24-2023 Heart rate 69 /min bpm [facility] CBC + DIFFon 01-17-2023 Baso # 0.00 x10EE3/UL Normal 0.00 - 0.10 [facility] Comment on above: Performed By: #### 2 [id number] #### [facility],[address] [place] [address] Basophils/100 WBC (Bld) 0.4 % Normal 0.0 - 2.0 [facility] Comment on above: Performed By: #### 2 [id number] #### [facility],[address] [place] [address] CBC + DIFF Normal [facility] Comment on above: Result Comment: CBC- COMPLETE BLOOD COUNT Performed By: #### 2 [id number] #### [facility],[address] [place] [address] 76189 EO # 0.00 x10EE3/UL Normal 0.00 - 0.50 [facility] Comment on above: Performed By: #### 2 [id number] #### [facility],[address] [place], [place] [id number] Eosinophils/100 WBC (Bld) 0.3 % Normal 0.0 - 7.0 [facility] Comment on above: Performed By: #### 2 [id number] #### [facility],[address] [place] [address] Erythrocyte distribution width (RBC) [Ratio] 15.2 % Normal 12.0 - 15.6 [facility] Comment on above: Performed By: #### 2 [id number] #### [facility],[address] [place] [address] 23377 Hematocrit (Bld) [Volume fraction] 40.9 % Normal 34.0 - 46.0 [facility] Comment on above: Performed By: #### 2 [id number] #### [facility],[address] [place] [address] 25964 Hemoglobin (Bld) [Mass/Vol] 13.6 g/dL Normal 12.0 - 16.0 [facility] Comment on above: Performed By: #### 2 91551 #### [facility],[address] [place] [address] Lymph # 3.30 x10EE3/UL High 0.80 - 2.80 [facility] Comment on above: Performed By: #### 2 48824 #### [facility],[address] [place], [place] [id number] Lymphocytes/100 WBC (Bld) 30.0 % Normal 20.0 - 45.0 [facility] Comment on above: Performed By: #### 2 58533 #### [facility],[address] [place] [address] 96241 MANUAL DIFF N/A Normal [facility] Comment on above: Performed By: #### 2 76932 #### [facility],[address] [place] [address] 72036 MCH (RBC) [Entitic mass] 27 pg Normal 27 - 33 [facility] Comment on above: Performed By: #### 2 [id number] #### [facility],[address] [place] [address] 66429 MCHC 33 X10 3 Normal 32 - 36 [facility] Comment on above: Performed By: #### 2 36539 #### [facility],[address] [place] [address] 77816 MCV (RBC) [Entitic vol] 80 fL Normal 80 - 99 [facility] Comment on above: Performed By: #### 2 33637 #### [facility],[address] [place] [address] 47931 Bibb # 0.80 x10EE3/UL Normal 0.20 - 1.00 [facility] Comment on above: Performed By: #### 2 04375 #### [facility],[address] [place] [address] 27499 MONOS % 7.6 % Normal 0.0 - 10.0 [facility] Comment on above: Performed By: #### 2 15731 #### [facility],[address] [place] [address] 39577 Morphology Franky (Bld) [Interp] N/A Normal [facility] Comment on above: Performed By: #### 2 07087 #### [facility],[address] [place] [address] 51638 Neut # 6.80 x10EE3/UL Normal 1.50 - 7.10 [facility] Comment on above: Performed By: #### 2 69046 #### [facility],[address] [place] [address] 00217 Neutrophils/100 WBC (Bld) 61.7 % Normal 46.0 - 76.0 [facility] Comment on above: Performed By: #### 2 21682 #### [facility],[address] [place] [address] 07879 PLATELET 504 x10EE3/UL High 150 - 450 [facility] Comment on above: Performed By: #### 2 05241 #### [facility],[address] [place] [address] 65337 Platelet mean volume (Bld) [Entitic vol] 7.2 fL Normal 6.6 - 10.5 [facility] Comment on above: Result Comment: AUTO MATED DIFFERENTIAL Performed By: #### 2 12312 #### [facility],[address] [place] [address] 54888 RBC 5.14 x 10EE6/UL Normal 4.10 - 5.30 [facility] Comment on above: Performed By: #### 2 43747 #### [facility],[address] [place] [address] 61204 WBC 11.1 x 10EE3/UL High 4.5 - 10.8 [facility] Comment on above: Performed By: #### 2 16361 #### [facility],[address] [place] [address] 85192 CMP with eGFRon 01-17-[address] AGE [address] [facility] Comment on above: Performed By: #### 2 79208 #### [facility],[address] [place] [address] 77116 Albumin [Mass/Vol] 3.6 g/dL Normal 3.4 - 5.0 [facility] Comment on above: Performed By: #### 2 83040 #### [facility],[address] [place] [address] 26469 Albumin/Globulin [Mass ratio] 0.7 {ratio} Low 0.9 - 1.6 [facility] Comment on above: Performed By: #### 2 70532 #### [facility],[address] [place] [address] 45927 ALK PHOS 73 U/L Normal 46 - 116 [facility] Comment on above: Performed By: #### 2 91889 #### [facility],[address] [place] [address] 08991 ALT [Catalytic activity/Vol] 21 U/L Normal 14 - 59 [facility] Comment on above: Performed By: #### 2 55491 #### [facility],[address] [place] [address] 69434 Anion gap [Moles/Vol] 17 mmol/L Normal 10 - 20 [facility] Comment on above: Performed By: #### 2 11831 #### [facility],[address] [place] [address] 57236 AST [Catalytic activity/Vol] 12 U/L Low 13 - 39 [facility] Comment on above: Performed By: #### 2 80899 #### [facility],[address] [place] [address] 95357 B/C RATIO 9 ratio Normal 0 - 30 [facility] Comment on above: Performed By: #### 2 50491 #### [facility],[address] [place] [address] 25617 Bilirubin [Mass/Vol] 0.7 mg/dL Normal 0.2 - 1.0 [facility] Comment on above: Performed By: #### 2 73729 #### [facility],[address] [place] [address] 07661 Calcium [Mass/Vol] 9.1 mg/dL Normal 8.5 - 10.1 [facility] Comment on above: Performed By: #### 2 81175 #### [facility],[address] [place] [address] 58145 Chloride [Moles/Vol] 98 mmol/L Normal 98 - 107 [facility] Comment on above: Performed By: #### 2 50053 #### [facility],[address] [place] [address] 59093 CMP with eGFR Normal [facility] Comment on above: Result Comment: COMP REHENSIVE METABOLIC PANEL Performed By: #### 2 [id number] #### [facility],[address] [place] [address] 44158 CO2 [Moles/Vol] 23.6 mmol/L Normal 21.0 - 32.0 [facility] Comment on above: Performed By: #### 2 83420 #### [facility],[address] [place] [address] 25531 Creatinine [Mass/Vol] 1.10 mg/dL High 0.55 - 1.02 [facility] Comment on above: Performed By: #### 2 28981 #### [facility],[address] [place] [address] 12006 eGFR 58 ML/MINUTE Low 60 - 999 [facility] Comment on above: Performed By: #### 2 [id number] #### [facility],[address] [place] [address] 97994 GFR/1.73 sq M.predicted among non-blacks MDRD (S/P/Bld) [Vol rate/Area] mL/min/{1.73_m2} Normal 60 - 999 [facility] Comment on above: Result Comment: ACCO RDING TO THE NATIONAL KIDNEY DISEASE EDUCATION PROGRAM(NKDE), A NORMAL eGFR IS A VALUE GREATER THAN OR EQUAL TO 60 ML/MIN/1.73 SQ METERS. CHRONIC KIDNEY DISEASE: <60mL/MIN/1.73 SQ METERS KIDNEY FAILURE: <15mL/MIN/1.73 SQ METERS THIS TEST SHOULD ONLY BE USED FOR PATIENTS 18 YEARS OF AGE AND OLDER. Performed By: #### 2 72976 #### [facility],[address] [place] [address] 04443 Globulin (S) [Mass/Vol] 5.1 g/dL High 1.5 - 3.8 [facility] Comment on above: Performed By: #### 2 27960 #### [facility],[address] [place] [address] 78744 Glucose [Mass/Vol] 191 mg/dL High 74 - 106 [facility] Comment on above: Performed By: #### 2 18920 #### [address] [address] Potassium [Moles/Vol] 3.7 mmol/L Normal 3.5 - 5.1 [facility] Comment on above: Performed By: #### 2 95861 #### [address] [address] Protein [Mass/Vol] 8.7 g/dL High 6.4 - 8.2 [facility] Comment on above: Performed By: #### 2 50558 #### [facility],[address] [place] [address] 15651 Sodium [Moles/Vol] 135 mmol/L Low 136 - 145 [facility] Comment on above: Performed By: #### 2 05790 #### [facility],[address] [place] [address]856 Urea nitrogen [Mass/Vol] 10 mg/dL Normal 7 - [facility] Comment on above: Performed By: #### 2 [id number] #### [facility],[address] [place] [address] ABDOMEN/PELVIS Won 2022 CT ABDOMEN/PELVIS W [address] [address] Patient: GHISLAINE GIVENS Phone#: : 1990 Age: 32 Gender: F Pt. Type: ER Account: [id number] Location: [facility] Ordering: GERALDINE ROLAND Exam Date: 01/17/2023/8:31 Family Phys: Charge Code: [id number] Physician: [place] Order #: [id number] Dose#: PROCEDURE: CT ABDOMEN/PELVIS WITH CONTRAST COMPARISON: [facility], CT, ABDOMEN/PELVIS W CON, 01/24/2022, 18:58. INDICATIONS: [...] 32 Gender: F Pt. Type: ER Account: [id number] Location: 05 Ordering: GERALDINE ROLAND Exam Date: 01/17/2023/8:31 Family Phys: Charge Code: [id number] Physician: [place] Order #: [id number] Dose#: OTHER: Negative. CONCLUSION: 1. UNDER FILLING VERSUS MUCOSAL THICKENING AT THE RECTOSIGMOID COLON. Dictated by: Cristy Penaloza MD on 01/17/2023 at 9:14 Approved by: Cristy Penaloza MD on 01/17/2023 at 9:[address] [facility] DRUG SCREEN URINE MEDICon AMPHETAMINES Negative Normal [facility] Comment on above: Performed By: #### 2 [id number] #### [facility],[address] [place] [address] B-DIAZEPINES Negative Normal [facility] Comment on above: Performed By: #### 2 76656 #### [facility],[address] [place], [place] [id number] BARBITURATES Negative Normal [facility] Comment on above: Performed By: #### 2 74060 #### [facility],[address] [place], [place] [id number] COCAINE Negative Normal [facility] Comment on above: Performed By: #### 2 [id number] #### [facility],[address] [place], [place] [id number] DRUG SCREEN URINE MEDIC Normal [facility] Comment on above: Result Comment: DRUG SCREEN - URINE Performed By: #### 2 68918 #### [facility],[address] [place] [address] [address] [facility] Comment on above: Performed By: #### 2 75962 #### [facility],[address] [place] [address] [address] [facility] Comment on above: Performed By: #### 2 25820 #### [facility],[address] [place] [address] [facility] Comment on above: Performed By: #### 2 64728 #### [facility],[address] [place] [address] [facility] Comment on above: Result Comment: ERASTO ENTS RECEIVING PROTON PUMP INHIBITORS MAY DEMONSTRATE FALSE POSITIVE THC/CANNABINOID RESULTS. AN ALTERNATIVE CONFIRMATORY METHOD SHOULD BE CONSIDERED TO VERIFY POSITIVE RESULTS. Performed By: #### 2 [id number] #### [facility],[address] [place], [place] [id number] LIPASEon 01-17-2023 Lipase [Catalytic activity/Vol] 143.0 U/L Normal 73.0 - 393 [facility] Comment on above: Performed By: #### 2 78575 #### [facility],[address] [place] [address] 51952 SERUM QUALon 01-17 EXTERNAL QC DONE? YES Normal [facility] Comment on above: Performed By: #### 2 38825 #### [facility],[address] [place], [place] [id number] INTERNAL QC PASS Normal [facility] Comment on above: Performed By: #### 2 [id number] #### [facility],[address] [place] [address] 38317 SER Negative Normal NEGATIVE [facility] Comment on above: Performed By: #### 2 69656 #### [facility],[address] [place] [address] 42858 URINALYSISon 01-17-[address] [facility] Comment on above: Performed By: #### 2 84087 #### [facility],[address] [place] [address]49 Bacteria 1+ Normal [facility] Comment on above: Performed By: #### 2 36538 #### [facility],[address] [place] [address] 62722 Bilirubin Ql (U) Negative Normal NORMAL: NEGATIVE [facility] Comment on above: Performed By: #### 2 98711 #### [facility],[address] [place] [address] [address] [facility] Comment on above: Performed By: #### 2 62388 #### [facility],[address] [place] [address] 78903 Clarity (U) clear Normal NORMAL: CLEAR [facility] Comment on above: Performed By: #### 2 41630 #### [facility],[address] [place] [address] 63962 Color (U) p.yel Normal NORMAL: YELLOW [facility] Comment on above: Performed By: #### 2 72219 #### [facility],[address] [place] [address] 23562 Crystals LM Nom (Urine sed) NONE Normal [facility] Comment on above: Performed By: #### 2 25422 #### [facility],[address] [place] [address] 27845 Epi Cells MODERATE Normal [facility] Comment on above: Performed By: #### 2 00919 #### [facility],[address] [place] [address] 75601 Glucose Ql (U) 50 Abnormal NORMAL: NORMAL [facility] Comment on above: Performed By: #### 2 99694 #### [facility],[address] [place] [address] 13141 Hemoglobin Ql (U) Negative Normal NORMAL: NEGATIVE [facility] Comment on above: Performed By: #### 2 83711 #### [facility],[address] [place] [address] Ketone 15 Abnormal NORMAL: NEGATIVE [facility] Comment on above: Performed By: #### 2 53276 #### [facility],[address] [place] [address] 23415 Leukocytes 100 Abnormal NORMAL: NEGATIVE [facility] Comment on above: Performed By: #### 2 74908 #### [facility],[address] [place] [address] [facility] Comment on above: Performed By: #### 2 72887 #### [facility],[address] [place] [address] Nitrite Ql (U) Negative Normal NORMAL: NEGATIVE [facility] Comment on above: Performed By: #### 2 24199 #### [facility],[address] [place] [address] pH (U) 7 [pH] Normal NORMAL: 5.0-8.0 [facility] Comment on above: Performed By: #### 2 60658 #### [facility],[address] [place] [address] Protein Ql (U) Negative Normal NORMAL: NEGATIVE [facility] Comment on above: Performed By: #### 2 03763 #### [facility],[address] [place] [address] Rbc NONE Normal 0-3/hpf [facility] Comment on above: Performed By: #### 2 21943 #### [facility],[address] [place] [address] Sp [place] 1.005 Low NORMAL: 1.010-1.030 [facility] Comment on above: Performed By: #### 2 17519 #### [facility],[address] [place] [address] Specimen Type UNSPECIFIED Normal [facility] Comment on above: Performed By: #### 2 85091 #### [facility],[address] [place] [address] Urinalysis dipstick W Reflex Microscopic panel (U) SEE BELOW Normal [facility] Comment on above: Result Comment: MICR OSCOPIC Performed By: #### 2 39556 #### [facility],[address] [place] [address] Urobilinog NORM Normal NORMAL: NORMAL [facility] Comment on above: Performed By: #### 2 96043 #### [facility],[address] [place] [address] Wbc 1-5 Normal 0-5/hpf [facility] Comment on above: Performed By: #### 2 59950 #### [facility],[address] [place] [address] [facility] Comment on above: Performed By: #### 2 50939 #### [facility],[address] [place], [place] [id number] Absolute lymphocyte countOrd ered By: Lexus Villatoro on 01-15-2023 Lymphocytes Auto (Unsp spec) [#/Vol] 3.20 10*3/uL 0.83-4.51 [facility] Basophil percentageOrdered B y: Lexus Villatoro on 01-15-2023 Basophil percentage 154 mg/dL 74-106 [facility] Basophil percentage 7.1 g/dL 6.4-8.2 [facility] Basophil percentage 0.60 mg/dL 0.20-1.00 [facility] Basophil percentage 136 mmol/L 136-145 [facility] Basophil percentage 3.1 mmol/L 3.5-5.1 [facility] Basophil percentage 105 mmol/L 98-107 [facility] Basophils (Bld) [#/Vol] 9.4 10*3/uL 4.4-11.0 [facility] Basophils (Bld) [#/Vol] 5.3 10*3/uL 2.0-7.7 [facility] Basophils/100 WBC (Bld) 0.3 % 0-1 [facility] Basophils/100 WBC (Bld) 56.4 % 47-70 [facility] Bilirubin [Mass/Vol] 0.60 mg/dL 0.20-1.00 [facility] Comment on above: For patients on eltr ombopag therapy, use of Dimension [place] TBIL is not recommended. Chloride [Moles/Vol] 105 mmol/L 98-107 [facility] Eosinophils/100 WBC (Bld) 0.3 % 0-5 [facility] Glucose [Mass/Vol] 154 mg/dL 74-106 [facility] Comment on above: Fasting Glucose resu lt greater than or equal to 126 mg/dL suggests DIABETES MELLITUS per A.D.A. criteria. Neutrophils (Bld) [#/Vol] 5.3 10*3/uL 2.0-7.7 [facility] Neutrophils/100 WBC (Bld) 56.4 % 47-70 [facility] Potassium [Moles/Vol] 3.1 mmol/L 3.5-5.1 [facility] Protein [Mass/Vol] 7.1 g/dL 6.4-8.2 [facility] Sodium [Moles/Vol] 136 mmol/L 136-145 [facility] WBC (Bld) [#/Vol] 9.4 10*3/uL 4.4-11.0 [facility] Blood erythrocytes count (nu mber/volume)Ordered By: Lexus Villatoro on 01-15-2023 RBC (Bld) [#/Vol] 4.43 10*6/uL 4.2-5.4 [facility] Blood hemoglobin measurement (mass/volume)Ordered By: Lexus Villatoro on 01-15-2023 Hemoglobin (Bld) [Mass/Vol] 11.7 g/dL 12.0-15.0 [facility] Blood lymphocytes/100 leukoc ytesOrdered By: Lexus Villatoro on 01-15-2023 Lymphocytes/100 WBC (Bld) 34.2 % 19-41 [facility] Blood monocytes/100 leukocyt esOrdered By: Lexus Villatoro on 01-15-2023 Monocytes/100 WBC (Bld) 8.2 % 0-10 [facility] Blood platelet mean volumeOr dered By: Lexus Villatoro on 01-15-2023 Platelet mean volume (Bld) [Entitic vol] 9.3 fL 6.2-12.0 [facility] Determination of erythrocyte mean corpuscular volume (MCV)Ordered By: Lexus Villatoro on 01-15-2023 MCV (RBC) [Entitic vol] 80.4 fL 81-99 [facility] Glucose Glucometer (BldC) [M ass/Vol]Ordered By: Lexus Villatoro on 01-15-2023 Glucose [Mass/Vol] 247 mg/dL 74-106 [facility] Comment on above: MANAGEMENT OF PATIEN T CARE PER NURSING PROTOCOL Hematocrit Auto (Bld) [Volum e fraction]Ordered By: Lexus Villatoro on 01-15-2023 Hematocrit (Bld) [Volume fraction] 35.6 % 37-47 [facility] Laboratory - Chemistry and C hemistry - challengeOrdered By: Lexus Villatoro on 01-15-2023 ALP [Catalytic activity/Vol] 54 U/L 45-117 [facility] ALT [Catalytic activity/Vol] 14 U/L 13-56 [facility] CO2 [Moles/Vol] 26.0 mmol/L 21.0-32.0 [facility] Globulin (S) [Mass/Vol] 4.1 g/dL 2.2-4.2 [facility] Magnesium [Mass/Vol] 2.0 mg/dL 1.6-2.6 [facility] Urea nitrogen/Creatinine [Mass ratio] 6.6 mg/mg 10-20 [facility] Laboratory - Hematology and Cell countsOrdered By: Lexus Villatoro on 01-15-2023 Erythrocyte distribution width (RBC) [Entitic vol] 40.1 fL 35.1-43.9 [facility] Erythrocyte distribution width (RBC) [Ratio] 13.8 % 11.6-14.6 [facility] Immature granulocytes/100 WBC (Bld) 0.600 % 0.0-0.9 [facility] Comment on above: IG% - Immature Granu locytes (promyelocytes, myelocytes and metamyelocytes) > 1% indicates that a LEFT SHIFT is Present. MCH (RBC) [Entitic mass] 26.4 pg 27.0-32.0 [facility] Nucleated RBC/100 WBC (Bld) [Ratio] 0 % 0-5 [facility] Auto (RBC) [Mass/Vol]Or dered By: Lexus Villatoro on 01-15-2023 MCHC (RBC) [Mass/Vol] 32.9 g/dL 32-36 [facility] No Panel InformationOrdered By: Lexus Villatoro on 01-15-2023 Estimated Creatinine Clearance Calc 84.62 ml/min [facility] Estimated GFR (MDRD) Amer 93 mL/min >60 [facility] Comment on above: GFR Calc Estimated GFR (MDRD) Non-Af Amer 77 mL/min >60 [facility] Comment on above: Non- GFR Calc Thyroid Stimulating Hormone (TSH) 2.30 uIU/mL 0.358-3.74 [facility] 26.4 pg 27.0-32.0 [facility] 13.8 % 11.6-14.6 [facility] 40.1 fl 35.1-43.9 [facility] 0.600 % 0.0-0.9 [facility] 0 % 0-5 [facility] 77 mL/min >60 [facility] 93 mL/min >60 [facility] 84.62 ml/min [facility] 6.6 RATIO 10-20 [facility] 4.1 g/dL 2.2-4.2 [facility] 54 U/L 45-117 [facility] 14 U/L 13-56 [facility] 2.0 mg/dL 1.6-2.6 [facility] 26.0 mmol/L 21.0-32.0 [facility] 2.30 uIU/mL 0.358-3.74 [facility] Platelets bldOrdered By: Porsche Villatoro on 01-15-2023 Platelets (Bld) [#/Vol] 361 10*3/uL 150-450 [facility] Serum or plasma albumin hussein urement (mass/volume)Ordered By: Lexus Villatoro on 01-15-2023 Albumin [Mass/Vol] 3.0 g/dL 3.2-5.0 [facility] Serum or plasma albumin/glob ulin mass ratioOrdered By: Lexus Villatoro on 01-15-2023 Albumin/Globulin [Mass ratio] 0.7 {ratio} 0.9-2.4 [facility] Serum or plasma calcium hussein urement (mass/volume)Ordered By: Lexus Villatoro on 01-15-2023 Calcium [Mass/Vol] 8.2 mg/dL 8.5-10.1 [facility] Serum or plasma creatinine m easurement (mass/volume)Ordered By: Lexus Villatoro on 01-15-2023 Creatinine [Mass/Vol] 0.91 mg/dL 0.55-1.02 [facility] Comment on above: The validity of the calculated GFR & GFRAA in patients over 70 years has not been determined. Clinical correlation is essential. Serum or plasma urea nitroge n measurement (mass/volume)Ordered By: Lexus Villatoro on 01-15-2023 Urea nitrogen [Mass/Vol] 6 mg/dL 7-18 [facility] Thin prep Papanicolaou smear with manual screeningOrdered By: Lexus Villatoro on 01-15-2023 Thin prep Papanicolaou smear with manual screening 13 U/L 15-37 [facility] Thin prep Papanicolaou smear with manual screening 5 5-15 [facility] Bacteria identified Cx Nom ( U)Ordered By: Willie Dhillon on 01-14-2023 Culture, urine Positive [facility] Basophil percentageOrdered B y: Willie Dhillon on 01-14-2023 Basophil percentage 1.3 mmol/L 0.4-2.0 [facility] Lactate [Moles/Vol] 1.3 mmol/L 0.4-2.0 [facility] Basophil percentage 0-5 SEEN /hpf 0-5 [facility] Beta hCG serum qualOrdered B y: Willie Dhillon on 01-14-2023 Beta HCG ( test) Ql Negative [facility] Bilirubin Test strip Ql (U)O rdered By: Willie Dhillon on 01-14-2023 Bilirubin Ql (U) Negative Negative [facility] Culture, urineOrdered By: Reji March on 01-14-2023 Bacteria identified Cx Nom (U) Positive [facility] Ketones Test strip Ql (U)Ord ered By: Willie Dhillon on 01-14-2023 Ketones Ql (U) 5 mg/dl Negative [facility] Laboratory - Drug toxicology Ordered By: Lexus Villatoro on 01-14-2023 Amphetamines Ql (U) Negative <1000 ng/mL [facility] Benzodiazepines Ql (U) Negative < 200 ng/mL [facility] Cannabinoids Screen Ql (U) Positive < 50 ng/mL [facility] Cocaine Ql (U) Negative < 300 ng/mL [facility] Opiates Ql (U) Negative < 300 ng/mL [facility] Mucus LM Ql (Urine sed)Order ed By: Willie Dhillon on 01-14-2023 Mucus Ql (Urine sed) 0 SEEN /hpf [facility] Nitrite Test strip Ql (U)Ord ered By: Willie Dhillon on 01-14-2023 Nitrite Ql (U) Negative Negative [facility] No Panel InformationOrdered By: Lexus Villatoro on 01-14-2023 MDMA (Ecstasy) Screen Negative < 500 ng/mL [facility] Urine Barbiturates Screen Negative < 200 ng/mL [facility] Urine Drug Screen Comment [facility] Comment on above: CONFIRMATORY TESTING FOR [...] Urine Methadone Screen Negative < 300 ng/mL [facility] Negative < 300 ng/mL [facility] Positive < 50 ng/mL [facility] Protein Test strip Ql (U)Ord ered By: Willie Dhillon on 01-14-2023 Protein Ql (U) 15 mg/dl Negative [facility] Squamous epithelial cells de tection in urine sediment by light microscopyOrdered By: Willie Dhillon on 01-14-2023 Epithelial cells.squamous LM Ql (Urine sed) 0-5 SEEN /hpf 5-10 [facility] Urine blood detectionOrdered By: Willie Dhiloln on 01-14-2023 RBC Ql (U) 10 /ul Negative [facility] RBC Ql (U) 0-5 SEEN /hpf 0-5 [facility] Urine clarityOrdered By: Heath Dhillon on 01-14-2023 Clarity (U) Clear Clear [facility] Urine color determinationOrd ered By: Willie Dhillon on 01-14-2023 Color (U) Yellow Yellow [facility] Urine glucose detectionOrder ed By: Willie Dhillon on 01-14-2023 Glucose Ql (U) 250 mg/dl Normal [facility] Urine leukocyte esterase det ection by dipstickOrdered By: Willie Dhillon on 01-14-2023 Leukocyte esterase Test strip Ql (U) 25 /ul Negative [facility] Urine pHOrdered By: Willie mo on 01-14-2023 pH (U) 8.0 [pH] 5.0 - 8.0 [facility] Urine phencyclidine (PCP) de tectionOrdered By: Lexus Villatoro on 01-14-2023 Phencyclidine Ql (U) Negative < 25 ng/mL [facility] Urine sediment bacteria coun t by microscopy (number/high power field)Ordered By: Willie Dhillon on 01-14-2023 Bacteria LM.HPF (Urine sed) [#/Area] RARE /hpf None Seen [facility] Urine specific gravity measu rementOrdered By: Willie Dhillon on 01-14-2023 Specific gravity (U) [Rel density] 1.015 1.002-1.030 [facility] Urobilinogen Auto test strip Ql (U)Ordered By: Willie Dhillon on 01-14-2023 Urobilinogen Ql (U) Normal mg/dl Normal [facility] Basophil percentageOrdered B y: Deann Guerrero on 01-13-2023 Basophil percentage 25-50 SEEN /hpf 0-5 [facility] Basophil percentage 235 mg/dL 74-106 [facility] Basophil percentage 137 mmol/L 136-145 [facility] Basophil percentage 3.2 mmol/L 3.5-5.1 [facility] Basophil percentage 107 mmol/L 98-107 [facility] Chloride [Moles/Vol] 107 mmol/L 98-107 [facility] Glucose [Mass/Vol] 235 mg/dL 74-106 [facility] Comment on above: Glucose result great er than or equal to 200 mg/dLsuggests DIABETES MELLITUS per A.D.A. criteria. Potassium [Moles/Vol] 3.2 mmol/L 3.5-5.1 [facility] Sodium [Moles/Vol] 137 mmol/L 136-145 [facility] Beta hCG serum qualOrdered B y: Deann Guerrero on 01-13-2023 Beta HCG ( test) Ql Negative [facility] Bilirubin Test strip Ql (U)O rdered By: Deann Guerrero on 01-13-2023 Bilirubin Ql (U) Negative Negative [facility] Ketones Test strip Ql (U)Ord ered By: Deann Guerrero on 01-13-2023 Ketones Ql (U) 15 mg/dl Negative [facility] Laboratory - Chemistry and C hemistry - challengeOrdered By: Deann Guerrero on 01-13-2023 CO2 [Moles/Vol] 23.0 mmol/L 21.0-32.0 [facility] Urea nitrogen/Creatinine [Mass ratio] 7.6 mg/mg 04-30 [facility] Mucus LM Ql (Urine sed)Order ed By: Deann Guerrero on 01-13-2023 Mucus Ql (Urine sed) 1+ /hpf [facility] Nitrite Test strip Ql (U)Ord ered By: Deann Guerrero on 01-13-2023 Nitrite Ql (U) Negative Negative [facility] No Panel InformationOrdered By: Deann Guerrero on 01-13-2023 Estimated Creatinine Clearance Calc 73.34 ml/min [facility] Estimated GFR (MDRD) Amer 79 mL/min >60 [facility] Comment on above: GFR Calc Estimated GFR (MDRD) Non-Af Amer 65 mL/min >60 [facility] Comment on above: Non- GFR Calc 65 mL/min >60 [facility] 79 mL/min >60 [facility] 73.34 ml/min [facility] 7.6 RATIO 04-30 [facility] 23.0 mmol/L 21.0-32.0 [facility] Protein Test strip Ql (U)Ord ered By: Deann Guerrero on 01-13-2023 Protein Ql (U) 30 mg/dl Negative [facility] Serum or plasma calcium hussein urement (mass/volume)Ordered By: Deann Guerrero on 01-13-2023 Calcium [Mass/Vol] 8.5 mg/dL 8.5-10.1 [facility] Serum or plasma creatinine m easurement (mass/volume)Ordered By: Deann Guerrero on 01-13-2023 Creatinine [Mass/Vol] 1.05 mg/dL 0.55-1.02 [facility] Comment on above: The validity of the calculated GFR & GFRAA in patients over 70 years has not been determined. Clinical correlation is essential. Serum or plasma urea nitroge n measurement (mass/volume)Ordered By: Deann Guerrero on 01-13-2023 Urea nitrogen [Mass/Vol] 8 mg/dL 7-18 [facility] Squamous epithelial cells de tection in urine sediment by light microscopyOrdered By: Deann Guerrero on 01-13-2023 Epithelial cells.squamous LM Ql (Urine sed) 5-10 SEEN /hpf 5-10 [facility] Thin prep Papanicolaou smear with manual screeningOrdered By: Deann Guerrero on 01-13-2023 Thin prep Papanicolaou smear with manual screening 7 5-15 [facility] Urine blood detectionOrdered By: Deann Guerrero on 01-13-2023 RBC Ql (U) 10 /ul Negative [facility] RBC Ql (U) 0-5 SEEN /hpf 0-5 [facility] Urine clarityOrdered By: Sulema Guerrero on 01-13-2023 Clarity (U) Sl. Cloudy Clear [facility] Urine color determinationOrd ered By: Deann Guerrero on 01-13-2023 Color (U) Yellow Yellow [facility] Urine glucose detectionOrder ed By: Deann Guerrero on 01-13-2023 Glucose Ql (U) 250 mg/dl Normal [facility] Urine leukocyte esterase det ection by dipstickOrdered By: Deann Guerrero on 01-13-2023 Leukocyte esterase Test strip Ql (U) 500 /ul Negative [facility] Urine pHOrdered By: Deann Guerrero on 01-13-2023 pH (U) 6.0 [pH] 5.0 - 8.0 [facility] Urine sediment bacteria coun t by microscopy (number/high power field)Ordered By: Deann Guerrero on 01-13-2023 Bacteria LM.HPF (Urine sed) [#/Area] 1 /[HPF] None Seen [facility] Urine specific gravity measu rementOrdered By: Deann Guerrero on 01-13-2023 Specific gravity (U) [Rel density] 1.020 1.002-1.030 [facility] Urobilinogen Auto test strip Ql (U)Ordered By: Deann Guerrero on 01-13-2023 Urobilinogen Ql (U) 1 mg/dl Normal [facility] Absolute lymphocyte countOrd ered By: Perico Norman on 01-12-2023 Lymphocytes Auto (Unsp spec) [#/Vol] 1.80 10*3/uL 0.83-4.51 [facility] Basophil percentageOrdered B y: Fabricio Guevara on 01-12-2023 Basophil percentage 208 mg/dL 74-106 [facility] Basophil percentage 137 mmol/L 136-145 [facility] Basophil percentage 3.0 mmol/L 3.5-5.1 [facility] Basophil percentage 105 mmol/L 98-107 [facility] Chloride [Moles/Vol] 105 mmol/L 98-107 [facility] Glucose [Mass/Vol] 208 mg/dL 74-106 [facility] Comment on above: Glucose result great er than or equal to 200 mg/dLsuggests DIABETES MELLITUS per A.D.A. criteria. Potassium [Moles/Vol] 3.0 mmol/L 3.5-5.1 [facility] Sodium [Moles/Vol] 137 mmol/L 136-145 [facility] Basophil percentageOrdered B y: Perico Norman on 01-12-2023 Basophil percentage 267 mg/dL 74-106 [facility] Basophil percentage 7.8 g/dL 6.4-8.2 [facility] Basophil percentage 0.40 mg/dL 0.20-1.00 [facility] Basophil percentage 134 mmol/L 136-145 [facility] Basophil percentage 3.4 mmol/L 3.5-5.1 [facility] Basophil percentage 101 mmol/L 98-107 [facility] Basophils (Bld) [#/Vol] 12.4 10*3/uL 4.4-11.0 [facility] Basophils (Bld) [#/Vol] 9.9 10*3/uL 2.0-7.7 [facility] Basophils/100 WBC (Bld) 0.3 % 0-1 [facility] Basophils/100 WBC (Bld) 79.6 % 47-70 [facility] Basophils/100 WBC (Bld) 0.0 % 0-5 [facility] Bilirubin [Mass/Vol] 0.40 mg/dL 0.20-1.00 [facility] Comment on above: For patients on eltr ombopag therapy, use of Dimension [place] TBIL is not recommended. Chloride [Moles/Vol] 101 mmol/L 98-107 [facility] Eosinophils/100 WBC (Bld) 0.0 % 0-5 [facility] Glucose [Mass/Vol] 267 mg/dL 74-106 [facility] Comment on above: Glucose result great er than or equal to 200 mg/dLsuggests DIABETES MELLITUS per A.D.A. criteria. Neutrophils (Bld) [#/Vol] 9.9 10*3/uL 2.0-7.7 [facility] Neutrophils/100 WBC (Bld) 79.6 % 47-70 [facility] Potassium [Moles/Vol] 3.4 mmol/L 3.5-5.1 [facility] Protein [Mass/Vol] 7.8 g/dL 6.4-8.2 [facility] Sodium [Moles/Vol] 134 mmol/L 136-145 [facility] WBC (Bld) [#/Vol] 12.4 10*3/uL 4.4-11.0 [facility] Blood erythrocytes count (nu mber/volume)Ordered By: Perico Norman on 01-12-2023 RBC (Bld) [#/Vol] 4.62 10*6/uL 4.2-5.4 [facility] Blood hemoglobin measurement (mass/volume)Ordered By: Perico Norman on 01-12-2023 Hemoglobin (Bld) [Mass/Vol] 12.1 g/dL 12.0-15.0 [facility] Blood lymphocytes/100 leukoc ytesOrdered By: Perico Norman on 01-12-2023 Lymphocytes/100 WBC (Bld) 14.5 % 19-41 [facility] Blood monocytes/100 leukocyt esOrdered By: Perico Norman on 01-12-2023 Monocytes/100 WBC (Bld) 5.0 % 0-10 [facility] Blood platelet mean volumeOr dered By: Perico Norman on 01-12-2023 Platelet mean volume (Bld) [Entitic vol] 9.0 fL 6.2-12.0 [facility] Determination of erythrocyte mean corpuscular volume (MCV)Ordered By: Perico Norman on 01-12-2023 MCV (RBC) [Entitic vol] 81.0 fL 81-99 [facility] Direct bilirubinOrdered By: Perico Norman on 01-12-2023 Bilirubin.direct [Mass/Vol] 0.14 mg/dL 0.00-0.30 [facility] Hematocrit Auto (Bld) [Volum e fraction]Ordered By: Perico Norman on 01-12-2023 Hematocrit (Bld) [Volume fraction] 37.4 % 37-47 [facility] Laboratory - Chemistry and C hemistry - challengeOrdered By: Fabricio Guevara on 01-12-2023 CO2 [Moles/Vol] 26.0 mmol/L 21.0-32.0 [facility] Urea nitrogen/Creatinine [Mass ratio] 7.0 mg/mg 10-20 [facility] Laboratory - Chemistry and C hemistry - challengeOrdered By: Perico Norman on 01-12-2023 ALP [Catalytic activity/Vol] 68 U/L 45-117 [facility] ALT [Catalytic activity/Vol] 14 U/L 13-56 [facility] CO2 [Moles/Vol] 24.0 mmol/L 21.0-32.0 [facility] Globulin (S) [Mass/Vol] 4.5 g/dL 2.2-4.2 [facility] Lipase [Catalytic activity/Vol] 37 U/L 13-75 [facility] Comment on above: Please note:LIPASE r evised reference range effective 22. New Lipase methodology. Expected to produce lower values than the previous assay method. NEW Reference Range: 13 - 75 U/L Urea nitrogen/Creatinine [Mass ratio] 9.7 mg/mg 10-20 [facility] Laboratory - Hematology and Cell countsOrdered By: Perico Norman on 01-12-2023 Erythrocyte distribution width (RBC) [Entitic vol] 38.9 fL 35.1-43.9 [facility] Erythrocyte distribution width (RBC) [Ratio] 13.7 % 11.6-14.6 [facility] Immature granulocytes/100 WBC (Bld) 0.600 % 0.0-0.9 [facility] Comment on above: IG% - Immature Granu locytes (promyelocytes, myelocytes and metamyelocytes) > 1% indicates that a LEFT SHIFT is Present. MCH (RBC) [Entitic mass] 26.2 pg 27.0-32.0 [facility] Nucleated RBC/100 WBC (Bld) [Ratio] 0 % 0-5 [facility] MCHC Auto (RBC) [Mass/Vol]Or dered By: Perico Norman on 01-12-2023 MCHC (RBC) [Mass/Vol] 32.4 g/dL 32-36 [facility] No Panel InformationOrdered By: Fabricio Guevara on 01-12-2023 Estimated Creatinine Clearance Calc 77.01 ml/min [facility] Estimated GFR (MDRD) [facility] Amer 84 mL/min >60 [facility] Comment on above: GFR Calc Estimated GFR (MDRD) Non-Af Amer 69 mL/min >60 [facility] Comment on above: Non- GFR Calc 69 mL/min >60 [facility] 84 mL/min >60 [facility] 77.01 ml/min [facility] 7.0 RATIO 10-20 [facility] 26.0 mmol/L 21.0-32.0 [facility] No Panel InformationOrdered By: Perico Norman on 01-12-2023 Estimated Creatinine Clearance Calc 68.15 ml/min [facility] Estimated GFR (MDRD) Amer 72 mL/min >60 [facility] Comment on above: GFR Calc Estimated GFR (MDRD) Non-Af Amer 60 mL/min >60 [facility] Comment on above: Non- GFR Calc 26.2 pg 27.0-32.0 [facility] 13.7 % 11.6-14.6 [facility] 38.9 fl 35.1-43.9 [facility] 0.600 % 0.0-0.9 [facility] 0 % 0-5 [facility] 60 mL/min >60 [facility] 72 mL/min >60 [facility] 68.15 ml/min [facility] 9.7 RATIO 10-20 [facility] 4.5 g/dL 2.2-4.2 [facility] 37 U/L 13-75 [facility] 68 U/L 45-117 [facility] 14 U/L 13-56 [facility] 24.0 mmol/L 21.0-32.0 [facility] Platelets bldOrdered By: Bakari Norman on 01-12-2023 Platelets (Bld) [#/Vol] 352 10*3/uL 150-450 [facility] Serum or plasma albumin hussein urement (mass/volume)Ordered By: Perico Norman on 01-12-2023 Albumin [Mass/Vol] 3.3 g/dL 3.2-5.0 [facility] Serum or plasma calcium hussein urement (mass/volume)Ordered By: Fabricio Guevara on 01-12-2023 Calcium [Mass/Vol] 8.7 mg/dL 8.5-10.1 [facility] Serum or plasma calcium hussein urement (mass/volume)Ordered By: Perico Norman on 01-12-2023 Calcium [Mass/Vol] 9.0 mg/dL 8.5-10.1 [facility] Serum or plasma creatinine m easurement (mass/volume)Ordered By: Fabricio Guevara on 01-12-2023 Creatinine [Mass/Vol] 1.00 mg/dL 0.55-1.02 [facility] Comment on above: The validity of the calculated GFR & GFRAA in patients over 70 years has not been determined. Clinical correlation is essential. Serum or plasma creatinine m easurement (mass/volume)Ordered By: Perico Norman on 01-12-2023 Creatinine [Mass/Vol] 1.13 mg/dL 0.55-1.02 [facility] Comment on above: The validity of the calculated GFR & GFRAA in patients over 70 years has not been determined. Clinical correlation is essential. Serum or plasma urea nitroge n measurement (mass/volume)Ordered By: Fabricio Guevara on 01-12-2023 Urea nitrogen [Mass/Vol] 7 mg/dL 01-26 [facility] Serum or plasma urea nitroge n measurement (mass/volume)Ordered By: Perico Norman on 01-12-2023 Urea nitrogen [Mass/Vol] 11 mg/dL 01-26 [facility] Thin prep Papanicolaou smear with manual screeningOrdered By: Fabricio Guevara on 01-12-2023 Thin prep Papanicolaou smear with manual screening 6 11-23 [facility] Thin prep Papanicolaou smear with manual screeningOrdered By: Perico Norman on 01-12-2023 Thin prep Papanicolaou smear with manual screening 12 U/L 15 [facility] Thin prep Papanicolaou smear with manual screening 9 11-23 [facility] .Auto Diffon 01-10-2023 Basophil, Absolute 0.0 10 3/mcL Normal 0.0-0.2 [facility] ([place]) Comment on above: Performed By: #### A DIFF, GFR, MDW, CMP, ANEU, CBC, LIP #### [address] [address] Basophils/100 WBC (Bld) 0.2 % Normal 0.0-2.5 [facility] ([place]) Comment on above: Performed By: #### A DIFF, GFR, MDW, CMP, ANEU, CBC, LIP #### [address] [address] Eosinophil, Absolute 0.0 10 3/mcL Normal 0.0-0.4 [facility] ([place]) Comment on above: Performed By: #### A DIFF, GFR, MDW, CMP, ANEU, CBC, LIP #### [address] [address] Eosinophils/100 WBC (Bld) 0.1 % Normal 0.0-7.0 [facility] ([place] Comment on above: Performed By: #### A DIFF, GFR, MDW, CMP, ANEU, CBC, LIP #### [address] [address] Lymphocyte, Absolute 2.7 10 3/mcL Normal 0.8-3.9 [facility] ([place] Comment on above: Performed By: #### A DIFF, GFR, MDW, CMP, ANEU, CBC, LIP #### [address] [address] Lymphocytes/100 WBC (Bld) 17.3 % Normal 10.0-50.0 [facility] ([place] Comment on above: Performed By: #### A DIFF, GFR, MDW, CMP, ANEU, CBC, LIP #### [address] [address] Monocyte, Absolute 0.9 10 3/mcL Normal 0.2-1.0 [facility] ([place]) Comment on above: Performed By: #### A DIFF, GFR, MDW, CMP, ANEU, CBC, LIP #### [address] [address] Monocytes/100 WBC (Bld) 5.7 % Normal 1.7-13.0 [facility] ([place]) Comment on above: Performed By: #### A DIFF, GFR, MDW, CMP, ANEU, CBC, LIP #### [address] [address] Neutrophils/100 WBC (Bld) 76.7 % Normal 37.0-80.0 [facility] ([place] Comment on above: Performed By: #### A DIFF, GFR, MDW, CMP, ANEU, CBC, LIP #### [address] [address] .GFRon 01-10-2023 GFR 64 ml/min/1.73sqm Normal [facility] ([place]) Comment on above: Result Comment: GFR Population [...] GFR, MDW, CMP, ANEU, CBC, LIP #### [address] [address] GFR Non- 53 ml/min/1.73sqm Normal [facility] ([place]) Comment on above: Result Comment: GFR Population [...] GFR, MDW, CMP, ANEU, CBC, LIP #### [address] [address] .MDWon 01-10-2023 Monocyte Distribution Width 14.44 Normal 0.00-20.00 [facility] ([place]) Comment on above: Result Comment: For ED adult patients suspected of sepsis, MDW<=20.0 does not rule out sepsis or risk of sepsis Performed By: #### A DIFF, GFR, MDW, CMP, ANEU, CBC, LIP #### [address] [address] .NEUABSon 01-10-2023 Neutrophil, Absolute 11.9 10 3/mcL High 2.9-6.2 [facility] ([place]) Comment on above: Performed By: #### A DIFF, GFR, MDW, CMP, ANEU, CBC, LIP #### [place] [address] .Urinalysis Microscopic (AO) on 01-10-2023 UA Bacteria Trace Abnormal [facility] ([place]) Comment on above: Performed By: #### A DIFF, GFR, MDW, CMP, ANEU, CBC, LIP #### [address] [address] UA RBC 0-5 Abnormal None Seen [facility] ([place] Comment on above: Performed By: #### A DIFF, GFR, MDW, CMP, ANEU, CBC, LIP #### [address] [address] UA Squam Epithelial LOADED Abnormal None Seen [facility] ([place]) Comment on above: Performed By: #### A DIFF, GFR, MDW, CMP, ANEU, CBC, LIP #### [place] [address] UA WBC 0-5 Abnormal None Seen [facility] ([place] Comment on above: Performed By: #### A DIFF, GFR, MDW, CMP, ANEU, CBC, LIP #### [place] [address] UA Yeast Trace Abnormal [facility] ([place] Comment on above: Performed By: #### A DIFF, GFR, MDW, CMP, ANEU, CBC, LIP #### [place] [address] CBCon 01-10-2023 Erythrocyte distribution width (RBC) [Ratio] 14.7 % High 11.5-14.5 [facility] ([place] Comment on above: Performed By: #### A DIFF, GFR, MDW, CMP, ANEU, CBC, LIP #### [place] [address] Hematocrit (Bld) [Volume fraction] 38.7 % Normal 37.0-47.0 [facility] ([place] Comment on above: Performed By: #### A DIFF, GFR, MDW, CMP, ANEU, CBC, LIP #### [place] [address] Hgb 12.9 G/dL Normal 12.0-16.0 [facility] ([place] Comment on above: Performed By: #### A DIFF, GFR, MDW, CMP, ANEU, CBC, LIP #### [address] [address] MCH (RBC) [Entitic mass] 25.7 pg Low 27.0-31.2 [facility] ([place] Comment on above: Performed By: #### A DIFF, GFR, MDW, CMP, ANEU, CBC, LIP #### [address] [address] MCHC 33.3 G/dL Normal 33.0-37.0 [facility] ([place] Comment on above: Performed By: #### A DIFF, GFR, MDW, CMP, ANEU, CBC, LIP #### [address] [address] MCV (RBC) [Entitic vol] 77.4 fL Low 80.0-94.0 A [facility] ([place]) Comment on above: Performed By: #### A DIFF, GFR, MDW, CMP, ANEU, CBC, LIP #### [address] [address] Platelet 438 10 3/mcL High 130-400 [facility] ([place] Comment on above: Performed By: #### A DIFF, GFR, MDW, CMP, ANEU, CBC, LIP #### [address] [address] Platelet mean volume (Bld) [Entitic vol] 7.2 fL Low 7.4-10.4 [facility] ([place] Comment on above: Performed By: #### A DIFF, GFR, MDW, CMP, ANEU, CBC, LIP #### [address] [address] RBC 5.01 10 6/mcL Normal 4.20-5.40 [facility] ([place] Comment on above: Performed By: #### A DIFF, GFR, MDW, CMP, ANEU, CBC, LIP #### [address] [address] WBC 15.5 10 3/mcL High 4.6-10.8 [facility] ([place] Comment on above: Performed By: #### A DIFF, GFR, MDW, CMP, ANEU, CBC, LIP #### [address] [address] CMPon 01-10-2023 Albumin Level 3.9 G/dL Normal 3.5-5.0 [facility] ([place] Comment on above: Performed By: #### A DIFF, GFR, MDW, CMP, ANEU, CBC, LIP #### [address] [address] Albumin/Globulin [Mass ratio] 0.9 {ratio} Low 1.1-2.5 [facility] ([place] Comment on above: Performed By: #### A DIFF, GFR, MDW, CMP, ANEU, CBC, LIP #### [address] [address] ALP [Catalytic activity/Vol] 84 U/L Normal 40-135 [facility] ([place] Comment on above: Performed By: #### A DIFF, GFR, MDW, CMP, ANEU, CBC, LIP #### [place] [id number] ALT [Catalytic activity/Vol] 17 U/L Normal 14-59 [facility] ([place]) Comment on above: Performed By: #### A DIFF, GFR, MDW, CMP, ANEU, CBC, LIP #### [place] [id number] AST [Catalytic activity/Vol] 13 U/L Normal 10-40 [facility] ([place]) Comment on above: Performed By: #### A DIFF, GFR, MDW, CMP, ANEU, CBC, LIP #### [address] [address] Bili Total 0.6 mg/dL Normal 0.2-1.0 [facility] ([place]) Comment on above: Result Comment: Use of this assay is not recommended for patients undergoing treatment with eltrombopag due to the potential for falsely elevated results. Performed By: #### A DIFF, GFR, MDW, CMP, ANEU, CBC, LIP #### [address] [address] BUN/Creatinine Ratio 11 ratio Normal 7-27 [facility] ([place]) Comment on above: Performed By: #### A DIFF, GFR, MDW, CMP, ANEU, CBC, LIP #### [address] [address] Calcium [Mass/Vol] 9.4 mg/dL Normal 8.4-10.2 [facility] ([place]) Comment on above: Performed By: #### A DIFF, GFR, MDW, CMP, ANEU, CBC, LIP #### [address] [address] Chloride [Moles/Vol] 99 mmol/L Normal 98-107 [facility] ([place]) Comment on above: Performed By: #### A DIFF, GFR, MDW, CMP, ANEU, CBC, LIP #### [address] [address] CO2 [Moles/Vol] 22 mmol/L Normal 22-29 [facility] ([place]) Comment on above: Performed By: #### A DIFF, GFR, MDW, CMP, ANEU, CBC, LIP #### [address] [address] Creatinine [Mass/Vol] 1.20 mg/dL High 0.55-1.02 [facility] ([place]) Comment on above: Performed By: #### A DIFF, GFR, MDW, CMP, ANEU, CBC, LIP #### [address] [address] Electrolyte Balance 17.0 mEq/L High 4.0-15.0 [facility] ([place]) Comment on above: Performed By: #### A DIFF, GFR, MDW, CMP, ANEU, CBC, LIP #### [address] [address] Globulin 4.4 G/dL Normal [facility] ([place]) Comment on above: Performed By: #### A DIFF, GFR, MDW, CMP, ANEU, CBC, LIP #### [address] [address] Glucose [Mass/Vol] 270 mg/dL High 70-105 [facility] ([place]) Comment on above: Performed By: #### A DIFF, GFR, MDW, CMP, ANEU, CBC, LIP #### [address] [address] Potassium [Moles/Vol] 3.4 mmol/L Low 3.5-5.1 [facility] ([place] Comment on above: Performed By: #### A DIFF, GFR, MDW, CMP, ANEU, CBC, LIP #### [address] [address] Sodium [Moles/Vol] 138 mmol/L Normal 136-145 [facility] ([place]) Comment on above: Performed By: #### A DIFF, GFR, MDW, CMP, ANEU, CBC, LIP #### [address] [address] Total Protein 8.3 G/dL High 6.4-8.2 [facility] ([place]) Comment on above: Performed By: #### A DIFF, GFR, MDW, CMP, ANEU, CBC, LIP #### [address] [address] Urea nitrogen [Mass/Vol] 13 mg/dL Normal 7-18 [facility] ([place] Comment on above: Performed By: #### A DIFF, GFR, MDW, CMP, ANEU, CBC, LIP #### [address] [address] [address] ABD/PELVIS W/ IV CONTRAST ONLYon 01-10-2023 [...] PM Ordering Provider: ESSIE DOWNS [facility] ([place]) LABORATORYOrdered By: SYSTEM SYSTEM on 01-10-2023 Albumin [...] Level 39 U/L Normal 16-77 [facility] ([place]) Comment on above: Performed By: #### A DIFF, GFR, MDW, CMP, ANEU, CBC, LIP #### [place] [address] PREGUon 01-10-2023 HCG ( test) Ql (U) Negative Normal [facility] ([place]) Comment on above: Performed By: #### A DIFF, GFR, MDW, CMP, ANEU, CBC, LIP #### [place] [address] test (u) int Not detected Invalid Interpretation Code [facility] ([place] Comment on above: Performed By: #### A DIFF, GFR, MDW, CMP, ANEU, CBC, LIP #### [place] [address] UAon 01-10-2023 Color (U) Yellow Normal [facility] ([place]) Comment on above: Performed By: #### A DIFF, GFR, MDW, CMP, ANEU, CBC, LIP #### [place] [address] Glucose (U) [Mass/Vol] 500 mg/dL Abnormal Negative [facility] ([place]) Comment on above: Performed By: #### A DIFF, GFR, MDW, CMP, ANEU, CBC, LIP #### [place] [address] Ketones Ql (U) >=160 Abnormal Negative [facility] ([place]) Comment on above: Performed By: #### A DIFF, GFR, MDW, CMP, ANEU, CBC, LIP #### [address] [address] UA Appear Slightly Cloudy Abnormal Clear [facility] ([place]) Comment on above: Performed By: #### A DIFF, GFR, MDW, CMP, ANEU, CBC, LIP #### [address] [address] UA Blood Negative Normal Negative [facility] ([place]) Comment on above: Performed By: #### A DIFF, GFR, MDW, CMP, ANEU, CBC, LIP #### [address] [address] UA Leuk Est Negative Normal Negative [facility] ([place] Comment on above: Performed By: #### A DIFF, GFR, MDW, CMP, ANEU, CBC, LIP #### [address] [address] UA Nitrite Negative Normal Negative [facility] ([place] Comment on above: Performed By: #### A DIFF, GFR, MDW, CMP, ANEU, CBC, LIP #### [address] [address] UA pH 8.5 Abnormal 5.0 - 8.0 [facility] ([place]) Comment on above: Performed By: #### A DIFF, GFR, MDW, CMP, ANEU, CBC, LIP #### [address] [address] UA Protein 100 mg/dL Abnormal Negative [facility] ([place]) Comment on above: Performed By: #### A DIFF, GFR, MDW, CMP, ANEU, CBC, LIP #### [address] [address] UA Spec Grav 1.020 Normal 1.015-1.025 [facility] ([place] Comment on above: Performed By: #### A DIFF, GFR, MDW, CMP, ANEU, CBC, LIP #### [address] [address] UA Specimen Type Clean Catch Normal [facility] ([place]) Comment on above: Performed By: #### A DIFF, GFR, MDW, CMP, ANEU, CBC, LIP #### [address] [place], [place] [address] UA Urobilinogen 0.2 E.U./dL Normal 0.2-1.0 [facility] ([place]) Comment on above: Performed By: #### A DIFF, GFR, MDW, CMP, ANEU, CBC, LIP #### [place] [address] [place], [place] [address] Urobilinogen (U) [Mass/Vol] Negative Normal Negative [facility] ([place] Comment on above: Performed By: #### A DIFF, GFR, MDW, CMP, ANEU, CBC, LIP #### [address] [address] Absolute lymphocyte countOrd ered By: Carlos Calvo on 01-09-2023 Lymphocytes Auto (Unsp spec) [#/Vol] 2.47 10*3/uL 0.83-4.51 [facility] Basophil percentageOrdered B y: Carlos Calvo on 01-09-2023 Basophil percentage 0 SEEN /hpf 0-5 [facility] Basophil percentage 247 mg/dL 74-106 [facility] Basophil percentage 8.7 g/dL 6.4-8.2 [facility] Basophil percentage 0.60 mg/dL 0.20-1.00 [facility] Basophil percentage 134 mmol/L 136-145 [facility] Basophil percentage 4.0 mmol/L 3.5-5.1 [facility] Basophil percentage 101 mmol/L 98-107 [facility] Basophils (Bld) [#/Vol] 10.7 10*3/uL 4.4-11.0 [facility] Basophils (Bld) [#/Vol] 7.6 10*3/uL 2.0-7.7 [facility] Basophils/100 WBC (Bld) 0.5 % 0-1 [facility] Basophils/100 WBC (Bld) 70.5 % 47-70 [facility] Basophils/100 WBC (Bld) 0.2 % 0-5 [facility] Bilirubin [Mass/Vol] 0.60 mg/dL 0.20-1.00 [facility] Comment on above: For patients on eltr ombopag therapy, use of Dimension [place] TBIL is not recommended. Chloride [Moles/Vol] 101 mmol/L 98-107 [facility] Eosinophils/100 WBC (Bld) 0.2 % 0-5 [facility] Glucose [Mass/Vol] 247 mg/dL 74-106 [facility] Comment on above: Glucose result great er than or equal to 200 mg/dLsuggests DIABETES MELLITUS per A.D.A. criteria. Neutrophils (Bld) [#/Vol] 7.6 10*3/uL 2.0-7.7 [facility] Neutrophils/100 WBC (Bld) 70.5 % 47-70 [facility] Potassium [Moles/Vol] 4.0 mmol/L 3.5-5.1 [facility] Comment on above: Slight Hemolysis, Re sult may be falsely increased. Protein [Mass/Vol] 8.7 g/dL 6.4-8.2 [facility] Sodium [Moles/Vol] 134 mmol/L 136-145 [facility] WBC (Bld) [#/Vol] 10.7 10*3/uL 4.4-11.0 [facility] Bilirubin Test strip Ql (U)O rdered By: Carlos Calvo on 01-09-2023 Bilirubin Ql (U) Negative Negative [facility] Blood erythrocytes count (nu mber/volume)Ordered By: Carlos Calvo on 01-09-2023 RBC (Bld) [#/Vol] 5.01 10*6/uL 4.2-5.4 [facility] Blood hemoglobin measurement (mass/volume)Ordered By: Carlos Calvo on 01-09-2023 Hemoglobin (Bld) [Mass/Vol] 13.0 g/dL 12.0-15.0 [facility] Blood lymphocytes/100 leukoc ytesOrdered By: Carlos Calvo on 01-09-2023 Lymphocytes/100 WBC (Bld) 23.0 % 19-41 [facility] Blood monocytes/100 leukocyt esOrdered By: Carlos Calvo on 01-09-2023 Monocytes/100 WBC (Bld) 4.9 % 0-10 [facility] Blood platelet mean volumeOr dered By: Carlos Calvo on 01-09-2023 Platelet mean volume (Bld) [Entitic vol] 9.5 fL 6.2-12.0 [facility] Determination of erythrocyte mean corpuscular volume (MCV)Ordered By: Carlos Calvo on 01-09-2023 MCV (RBC) [Entitic vol] 79.8 fL 81-99 [facility] Glucose Glucometer (BldC) [M ass/Vol]Ordered By: Deann Guerrero on 01-09-2023 Glucose [Mass/Vol] 254 mg/dL 74-106 [facility] Comment on above: MANAGEMENT OF PATIEN T CARE PER NURSING PROTOCOL Hematocrit Auto (Bld) [Volum e fraction]Ordered By: Carlos Calvo on 01-09-2023 Hematocrit (Bld) [Volume fraction] 40.0 % 37-47 [facility] Ketones Test strip Ql (U)Ord ered By: Carlos Calvo on 01-09-2023 Ketones Ql (U) 50 mg/dl Negative [facility] Laboratory - Chemistry and C hemistry - challengeOrdered By: Carlos Calvo on 01-09-2023 HCG ( test) Ql (U) Negative [facility] Comment on above: Very dilute urine sp ecimens, as indicated by a low specificgravity, may not contain insurance follow up representative levels of hCG. If is still suspected, a first morning urinespecimen should be collected 48 hours later and tested. ALP [Catalytic activity/Vol] 85 U/L 45-117 [facility] ALT [Catalytic activity/Vol] 20 U/L 13-56 [facility] CO2 [Moles/Vol] 21.0 mmol/L 21.0-32.0 [facility] Globulin (S) [Mass/Vol] 5.2 g/dL 2.2-4.2 [facility] Lipase [Catalytic activity/Vol] 38 U/L 13-75 [facility] Comment on above: Please note:LIPASE r evised reference range effective 22. New Lipase methodology. Expected to produce lower values than the previous assay method. NEW Reference Range: 13 - 75 U/L Urea nitrogen/Creatinine [Mass ratio] 7.9 mg/mg 10-20 [facility] Laboratory - Hematology and Cell countsOrdered By: Carlos Calvo on 01-09-2023 Erythrocyte distribution width (RBC) [Entitic vol] 38.3 fL 35.1-43.9 [facility] Erythrocyte distribution width (RBC) [Ratio] 13.4 % 11.6-14.6 [facility] Immature granulocytes/100 WBC (Bld) 0.900 % 0.0-0.9 [facility] Comment on above: IG% - Immature Granu locytes (promyelocytes, myelocytes and metamyelocytes) > 1% indicates that a LEFT SHIFT is Present. MCH (RBC) [Entitic mass] 25.9 pg 27.0-32.0 [facility] Nucleated RBC/100 WBC (Bld) [Ratio] 0 % 0-5 [facility] MCHC Auto (RBC) [Mass/Vol]Or dered By: Carlos Calvo on 01-09-2023 MCHC (RBC) [Mass/Vol] 32.5 g/dL 32-36 [facility] Mucus LM Ql (Urine sed)Order ed By: Carlos Calvo on 01-09-2023 Mucus Ql (Urine sed) 0 SEEN /hpf [facility] Nitrite Test strip Ql (U)Ord ered By: Carlos Calvo on 01-09-2023 Nitrite Ql (U) Negative Negative [facility] No Panel InformationOrdered By: Carlos Calvo on 01-09-2023 Negative [facility] Estimated Creatinine Clearance Calc 67.55 ml/min [facility] Estimated GFR (MDRD) Amer 72 mL/min >60 [facility] Comment on above: GFR Calc Estimated GFR (MDRD) Non-Af Amer 59 mL/min >60 [facility] Comment on above: Non- GFR Calc 25.9 pg 27.0-32.0 [facility] 13.4 % 11.6-14.6 [facility] 38.3 fl 35.1-43.9 [facility] 0.900 % 0.0-0.9 [facility] 0 % 0-5 [facility] 59 mL/min >60 [facility] 72 mL/min >60 [facility] 67.55 ml/min [facility] 7.9 RATIO 10-20 [facility] 5.2 g/dL 2.2-4.2 [facility] 38 U/L 13-75 [facility] 85 U/L 45-117 [facility] 20 U/L 13-56 [facility] 21.0 mmol/L 21.0-32.0 [facility] Platelets bldOrdered By: Analia Calvo on 01-09-2023 Platelets (Bld) [#/Vol] 397 10*3/uL 150-450 [facility] Protein Test strip Ql (U)Ord ered By: Carlos Calvo on 01-09-2023 Protein Ql (U) 15 mg/dl Negative [facility] Serum or plasma albumin hussein urement (mass/volume)Ordered By: Carlos Calvo on 01-09-2023 Albumin [Mass/Vol] 3.5 g/dL 3.2-5.0 [facility] Serum or plasma albumin/glob ulin mass ratioOrdered By: Carlos Calvo on 01-09-2023 Albumin/Globulin [Mass ratio] 0.7 {ratio} 0.9-2.4 [facility] Serum or plasma calcium hussein urement (mass/volume)Ordered By: Carlos Calvo on 01-09-2023 Calcium [Mass/Vol] 9.5 mg/dL 8.5-10.1 [facility] Serum or plasma creatinine m easurement (mass/volume)Ordered By: Carlos Calvo on 01-09-2023 Creatinine [Mass/Vol] 1.14 mg/dL 0.55-1.02 [facility] Comment on above: The validity of the calculated GFR & GFRAA in patients over 70 years has not been determined. Clinical correlation is essential. Serum or plasma urea nitroge n measurement (mass/volume)Ordered By: Carlos Calvo on 01-09-2023 Urea nitrogen [Mass/Vol] 9 mg/dL 7-18 [facility] Squamous epithelial cells de tection in urine sediment by light microscopyOrdered By: Carlos Calvo on 01-09-2023 Epithelial cells.squamous LM Ql (Urine sed) 5-10 SEEN /hpf 5-10 [facility] Thin prep Papanicolaou smear with manual screeningOrdered By: Carlos Clavo on 01-09-2023 Thin prep Papanicolaou smear with manual screening 19 U/L 15-37 [facility] Comment on above: Slight Hemolysis, Re sult may be falsely increased. Thin prep Papanicolaou smear with manual screening 12 5-15 [facility] Urine blood detectionOrdered By: Carlos Calvo on 01-09-2023 RBC Ql (U) 10 /ul Negative [facility] RBC Ql (U) 0 SEEN /hpf 0-5 [facility] Urine clarityOrdered By: Analia Calvo on 01-09-2023 Clarity (U) Clear Clear [facility] Urine color determinationOrd ered By: Carlos Calvo on 01-09-2023 Color (U) Yellow Yellow [facility] Urine glucose detectionOrder ed By: Carlos Calvo on 01-09-2023 Glucose Ql (U) 1000 mg/dl Normal [facility] Urine leukocyte esterase det ection by dipstickOrdered By: Carlos Calvo on 01-09-2023 Leukocyte esterase Test strip Ql (U) 25 /ul Negative [facility] Urine pHOrdered By: Carlos mclain on 01-09-2023 pH (U) 8.0 [pH] 5.0 - 8.0 [facility] Urine sediment bacteria coun t by microscopy (number/high power field)Ordered By: Carlos Calvo on 01-09-2023 Bacteria LM.HPF (Urine sed) [#/Area] 0 /[HPF] None Seen [facility] Urine specific gravity measu rementOrdered By: Carlos Calvo on 01-09-2023 Specific gravity (U) [Rel density] 1.015 1.002-1.030 [facility] Urobilinogen Auto test strip Ql (U)Ordered By: Carlos Calvo on 01-09-2023 Urobilinogen Ql (U) Normal mg/dl Normal [facility] Absolute lymphocyte countOrd ered By: Poli Barfield on 01-07-2023 Lymphocytes Auto (Unsp spec) [#/Vol] 3.48 10*3/uL 0.83-4.51 [facility] Basophil percentageOrdered B y: Poli Barfield on 01-07-2023 Basophil percentage 202 mg/dL 74-106 [facility] Basophil percentage 135 mmol/L 136-145 [facility] Basophil percentage 3.8 mmol/L 3.5-5.1 [facility] Basophil percentage 102 mmol/L 98-107 [facility] Basophils (Bld) [#/Vol] 9.0 10*3/uL 4.4-11.0 [facility] Basophils (Bld) [#/Vol] 4.8 10*3/uL 2.0-7.7 [facility] Basophils/100 WBC (Bld) 0.4 % 0-1 [facility] Basophils/100 WBC (Bld) 53.2 % 47-70 [facility] Basophils/100 WBC (Bld) 1.0 % 0-5 [facility] Chloride [Moles/Vol] 102 mmol/L 98-107 [facility] Eosinophils/100 WBC (Bld) 1.0 % 0-5 [facility] Glucose [Mass/Vol] 202 mg/dL 74-106 [facility] Comment on above: Glucose result great er than or equal to 200 mg/dLsuggests DIABETES MELLITUS per A.D.A. criteria. Neutrophils (Bld) [#/Vol] 4.8 10*3/uL 2.0-7.7 [facility] Neutrophils/100 WBC (Bld) 53.2 % 47-70 [facility] Potassium [Moles/Vol] 3.8 mmol/L 3.5-5.1 [facility] Sodium [Moles/Vol] 135 mmol/L 136-145 [facility] WBC (Bld) [#/Vol] 9.0 10*3/uL 4.4-11.0 [facility] Blood erythrocytes count (nu mber/volume)Ordered By: Poli Barfield on 01-07-2023 RBC (Bld) [#/Vol] 4.92 10*6/uL 4.2-5.4 [facility] Blood hemoglobin measurement (mass/volume)Ordered By: Poli Barfield on 01-07-2023 Hemoglobin (Bld) [Mass/Vol] 12.7 g/dL 12.0-15.0 [facility] Blood lymphocytes/100 leukoc ytesOrdered By: Poli Barfield on 01-07-2023 Lymphocytes/100 WBC (Bld) 38.5 % 19-41 [facility] Blood monocytes/100 leukocyt esOrdered By: Poli Barfield on 01-07-2023 Monocytes/100 WBC (Bld) 5.9 % 0-10 [facility] Blood platelet mean volumeOr dered By: Poli Barfield on 01-07-2023 Platelet mean volume (Bld) [Entitic vol] 9.1 fL 6.2-12.0 [facility] Determination of erythrocyte mean corpuscular volume (MCV)Ordered By: Poli Barfield on 01-07-2023 MCV (RBC) [Entitic vol] 79.7 fL 81-99 [facility] Glucose Glucometer (BldC) [M ass/Vol]Ordered By: Poli Barfield on 01-07-2023 Glucose [Mass/Vol] 206 mg/dL 74-106 [facility] Comment on above: MANAGEMENT OF PATIEN T CARE PER NURSING PROTOCOL Hematocrit Auto (Bld) [Volum e fraction]Ordered By: Poli Barfield on 01-07-2023 Hematocrit (Bld) [Volume fraction] 39.2 % 37-47 [facility] Laboratory - Chemistry and C hemistry - challengeOrdered By: Poli Barfield on 01-07-2023 HCG ( test) Ql (U) Negative [facility] Comment on above: Very dilute urine sp ecimens, as indicated by a low specificgravity, may not contain insurance follow up representative levels of hCG. If is still suspected, a first morning urinespecimen should be collected 48 hours later and tested. CO2 [Moles/Vol] 24.0 mmol/L 21.0-32.0 [facility] Urea nitrogen/Creatinine [Mass ratio] 8.9 mg/mg 10-20 [facility] Laboratory - Drug toxicology Ordered By: Poli Barfield on 01-07-2023 Amphetamines Ql (U) Negative <1000 ng/mL [facility] Benzodiazepines Ql (U) Negative < 200 ng/mL [facility] Cannabinoids Screen Ql (U) Positive < 50 ng/mL [facility] Cocaine Ql (U) Negative < 300 ng/mL [facility] Opiates Ql (U) Negative < 300 ng/mL [facility] Laboratory - Hematology and Cell countsOrdered By: Poli Barfield on 01-07-2023 Erythrocyte distribution width (RBC) [Entitic vol] 38.9 fL 35.1-43.9 [facility] Erythrocyte distribution width (RBC) [Ratio] 13.5 % 11.6-14.6 [facility] Immature granulocytes/100 WBC (Bld) 1.000 % 0.0-0.9 [facility] Comment on above: IG% - Immature Granu locytes (promyelocytes, myelocytes and metamyelocytes) > 1% indicates that a LEFT SHIFT is Present. MCH (RBC) [Entitic mass] 25.8 pg 27.0-32.0 [facility] Nucleated RBC/100 WBC (Bld) [Ratio] 0 % 0-5 [facility] MCHC Auto (RBC) [Mass/Vol]Or dered By: Poli Barfield on 01-07-2023 MCHC (RBC) [Mass/Vol] 32.4 g/dL 32-36 [facility] No Panel InformationOrdered By: Poli Barfield on 01-07-2023 MDMA (Ecstasy) Screen Positive < 500 ng/mL [facility] Urine Barbiturates Screen Negative < 200 ng/mL [facility] Urine Drug Screen Comment [facility] Comment on above: CONFIRMATORY TESTING FOR [...] TESTING MUST BE ORDERED SEPARATELY. USE TESTMNEMONIC: [facility] Urine Methadone Screen Negative < 300 ng/mL [facility] Negative < 300 ng/mL [facility] Positive < 50 ng/mL [facility] Estimated Creatinine Clearance Calc 68.76 ml/min [facility] Estimated GFR (MDRD) Amer 73 mL/min >60 [facility] Comment on above: GFR Calc Estimated GFR (MDRD) Non-Af Amer 60 mL/min >60 [facility] Comment on above: Non- GFR Calc 25.8 pg 27.0-32.0 [facility] 13.5 % 11.6-14.6 [facility] 38.9 fl 35.1-43.9 [facility] 1.000 % 0.0-0.9 [facility] 0 % 0-5 [facility] 60 mL/min >60 [facility] 73 mL/min >60 [facility] 68.76 ml/min [facility] 8.9 RATIO 10-20 [facility] 24.0 mmol/L 21.0-32.0 [facility] Platelets bldOrdered By: Devon Barfield on 01-07-2023 Platelets (Bld) [#/Vol] 380 10*3/uL 150-450 [facility] Serum or plasma calcium hussein urement (mass/volume)Ordered By: Poli Barfield on 01-07-2023 Calcium [Mass/Vol] 9.0 mg/dL 8.5-10.1 [facility] Serum or plasma creatinine m easurement (mass/volume)Ordered By: Poli Barfield on 01-07-2023 Creatinine [Mass/Vol] 1.12 mg/dL 0.55-1.02 [facility] Comment on above: The validity of the calculated GFR & GFRAA in patients over 70 years has not been determined. Clinical correlation is essential. Serum or plasma urea nitroge n measurement (mass/volume)Ordered By: Poli Barfield on 01-07-2023 Urea nitrogen [Mass/Vol] 10 mg/dL 7-18 [facility] Thin prep Papanicolaou smear with manual screeningOrdered By: Poli Barfield on 01-07-2023 Thin prep Papanicolaou smear with manual screening 9 5-15 [facility] Urine phencyclidine (PCP) de tectionOrdered By: Poli Barfield on 01-07-2023 Phencyclidine Ql (U) Negative < 25 ng/mL [facility] Basophil percentageOrdered B y: Amy Solorzano on 11-25-2022 Basophil percentage 493 mg/dL 74-106 [facility] Basophil percentage 8.0 g/dL 6.4-8.2 [facility] Basophil percentage 0.20 mg/dL 0.20-1.00 [facility] Basophil percentage 130 mmol/L 136-145 [facility] Basophil percentage 4.3 mmol/L 3.5-5.1 [facility] Basophil percentage 99 mmol/L 98-107 [facility] Basophils (Bld) [#/Vol] 8.2 10*3/uL 4.4-11.0 [facility] Bilirubin [Mass/Vol] 0.20 mg/dL 0.20-1.00 [facility] Comment on above: For patients on eltr ombopag therapy, use of Dimension [place] TBIL is not recommended. Chloride [Moles/Vol] 99 mmol/L 98-107 [facility] Glucose [Mass/Vol] 493 mg/dL 74-106 [facility] Comment on above: Critical Result(s) C alled at: 11:44:33 11/25/2022 by: NICOLE PATE TO GHISLAINE MCQUEEN. Results read back by same.Glucose result greater than or equal to 200 mg/dLsuggests DIABETES MELLITUS per A.D.A. criteria. Potassium [Moles/Vol] 4.3 mmol/L 3.5-5.1 [facility] Protein [Mass/Vol] 8.0 g/dL 6.4-8.2 [facility] Sodium [Moles/Vol] 130 mmol/L 136-145 [facility] WBC (Bld) [#/Vol] 8.2 10*3/uL 4.4-11.0 [facility] Blood erythrocytes count (nu mber/volume)Ordered By: Amy Solorzano on 11-25-2022 RBC (Bld) [#/Vol] 4.74 10*6/uL 4.2-5.4 [facility] Blood hemoglobin measurement (mass/volume)Ordered By: Amy Solorzano on 11-25-2022 Hemoglobin (Bld) [Mass/Vol] 12.5 g/dL 12.0-15.0 [facility] Blood platelet mean volumeOr dered By: Amy Solorzano on 11-25-2022 Platelet mean volume (Bld) [Entitic vol] 9.5 fL 6.2-12.0 [facility] Determination of erythrocyte mean corpuscular volume (MCV)Ordered By: Amy Solorzano on 11-25-2022 MCV (RBC) [Entitic vol] 80.2 fL 81-99 [facility] Hematocrit Auto (Bld) [Volum e fraction]Ordered By: Amy Solorzano on 11-25-2022 Hematocrit (Bld) [Volume fraction] 38.0 % 37-47 [facility] Laboratory - Chemistry and C hemistry - challengeOrdered By: Amy Solorzano on 11-25-2022 ALP [Catalytic activity/Vol] 110 U/L [facility] ALT [Catalytic activity/Vol] 26 U/L [facility] CO2 [Moles/Vol] 19.0 mmol/L 21.0-32.0 [facility] Globulin (S) [Mass/Vol] 5.0 g/dL 2.2-4.2 [facility] Urea nitrogen/Creatinine [Mass ratio] 11.3 mg/mg 04-30 [facility] Laboratory - Hematology and Cell countsOrdered By: Amy Solorzano on 11-25-2022 Erythrocyte distribution width (RBC) [Entitic vol] 40.1 fL 35.1-43.9 [facility] Erythrocyte distribution width (RBC) [Ratio] 13.9 % 11.6-14.6 [facility] MCH (RBC) [Entitic mass] 26.4 pg 27.0-32.0 [facility] MCHC Auto (RBC) [Mass/Vol]Or dered By: Amy Solorzano on 11-25-2022 MCHC (RBC) [Mass/Vol] 32.9 g/dL 32-36 [facility] No Panel InformationOrdered By: Amy Solorzano on 11-25-2022 Estimated GFR (MDRD) Amer 71 mL/min >60 [facility] Comment on above: GFR Calc Estimated GFR (MDRD) Non-Af Amer 59 mL/min >60 [facility] Comment on above: Non- GFR Calc 26.4 pg 27.0-32.0 [facility] 13.9 % 11.6-14.6 [facility] 40.1 fl 35.1-43.9 [facility] 59 mL/min >60 [facility] 71 mL/min >60 [facility] 11.3 RATIO 04-30 [facility] 5.0 g/dL 2.2-4.2 [facility] 110 U/L 45-117 [facility] 26 U/L [facility] 19.0 mmol/L 21.0-32.0 [facility] Platelets bldOrdered By: Glendy Solorzano on 11-25-2022 Platelets (Bld) [#/Vol] 375 10*3/uL 150-450 [facility] Serum or plasma albumin hussein urement (mass/volume)Ordered By: Amy Solorzano on 11-25-2022 Albumin [Mass/Vol] 3.0 g/dL 3.2-5.0 [facility] Serum or plasma albumin/glob ulin mass ratioOrdered By: Amy Solorzano on 11-25-2022 Albumin/Globulin [Mass ratio] 0.6 {ratio} 0.9-2.4 [facility] Serum or plasma calcium hussein urement (mass/volume)Ordered By: Amy Solorzano on 11-25-2022 Calcium [Mass/Vol] 8.2 mg/dL 8.5-10.1 [facility] Serum or plasma creatinine m easurement (mass/volume)Ordered By: Amy Solorzano on 11-25-2022 Creatinine [Mass/Vol] 1.15 mg/dL 0.55-1.02 [facility] Comment on above: The validity of the calculated GFR & GFRAA in patients over 70 years has not been determined. Clinical correlation is essential. Serum or plasma urea nitroge n measurement (mass/volume)Ordered By: Amy Solorzano on 11-25-2022 Urea nitrogen [Mass/Vol] 13 mg/dL 7-18 [facility] Thin prep Papanicolaou smear with manual screeningOrdered By: Amy Solorzano on 11-25-2022 Thin prep Papanicolaou smear with manual screening 15 U/L 15-37 [facility] Thin prep Papanicolaou smear with manual screening 12 5-15 [facility] Thin prep Papanicolaou smear with manual screening 6.1 mg/L NO RANGE EST. [facility] Whole blood hemoglobin A1c/t otal hemoglobin ratio (mass fraction)Ordered By: Amy Solorzano on 11-25-2022 HbA1c (Bld) [Mass fraction] 12.1 % 3.8-5.6 [facility] Comment on above: Normal < 5.7 % Predi abetic 5.7 - 6.4 % Diabetic >or= 6.5 % Please note range changes. Absolute lymphocyte countOrd ered By: Dr. Villatoro on 08-15-2022 Lymphocytes Auto (Unsp spec) [#/Vol] 2.49 10*3/uL 0.83-4.51 [facility] Basophil percentageOrdered B y: Dr. Villatoro on 08-15-2022 Basophils/100 WBC (Bld) 0.4 % 0-1 [facility] Chloride [Moles/Vol] 104 mmol/L 98-107 [facility] Eosinophils/100 WBC (Bld) 0.9 % 0-5 [facility] Glucose [Mass/Vol] 215 mg/dL 74-106 [facility] Comment on above: Glucose result great er than or equal to 200 mg/dLsuggests DIABETES MELLITUS per A.D.A. criteria. Neutrophils (Bld) [#/Vol] 5.7 10*3/uL 2.0-7.7 [facility] Neutrophils/100 WBC (Bld) 62.3 % 47-70 [facility] Potassium [Moles/Vol] 4.0 mmol/L 3.5-5.1 [facility] Sodium [Moles/Vol] 137 mmol/L 136-145 [facility] WBC (Bld) [#/Vol] 9.2 10*3/uL 4.4-11.0 [facility] Blood erythrocytes count (nu mber/volume)Ordered By: Dr. Villatoro on 08-15-2022 RBC (Bld) [#/Vol] 3.60 10*6/uL 4.2-5.4 [facility] Blood hemoglobin measurement (mass/volume)Ordered By: Dr. Villatoro on 08-15-2022 Hemoglobin (Bld) [Mass/Vol] 9.2 g/dL 12.0-15.0 [facility] Blood lymphocytes/100 leukoc ytesOrdered By: Dr. Villatoro on 08-15-2022 Lymphocytes/100 WBC (Bld) 27.1 % 19-41 [facility] Blood monocytes/100 leukocyt esOrdered By: Dr. Villatoro on 08-15-2022 Monocytes/100 WBC (Bld) 8.2 % 0-10 [facility] Blood platelet mean volumeOr dered By: Dr. Villatoro on 08-15-2022 Platelet mean volume (Bld) [Entitic vol] 9.0 fL 6.2-12.0 [facility] Determination of erythrocyte mean corpuscular volume (MCV)Ordered By: Dr. Villatoro on 08-15-2022 MCV (RBC) [Entitic vol] 81.4 fL 81-99 [facility] Glucose Glucometer (BldC) [M ass/Vol]Ordered By: Dr. Villatoro on 08-15-2022 Glucose [Mass/Vol] 290 mg/dL 74-106 [facility] Comment on above: MANAGEMENT OF PATIEN T CARE PER NURSING PROTOCOL Hematocrit Auto (Bld) [Volum e fraction]Ordered By: Dr. Villatoro on 08-15-2022 Hematocrit (Bld) [Volume fraction] 29.3 % 37-47 [facility] Laboratory - Chemistry and C hemistry - challengeOrdered By: Dr. Villatoro on 08-15-2022 CO2 [Moles/Vol] 24.0 mmol/L 21.0-32.0 [facility] Urea nitrogen/Creatinine [Mass ratio] 7.1 mg/mg 10-20 [facility] Laboratory - Hematology and Cell countsOrdered By: Dr. Villatoro on 08-15-2022 Erythrocyte distribution width (RBC) [Entitic vol] 38.4 fL 35.1-43.9 [facility] Erythrocyte distribution width (RBC) [Ratio] 12.9 % 11.6-14.6 [facility] Immature granulocytes/100 WBC (Bld) 1.100 % 0.0-0.9 [facility] Comment on above: IG% - Immature Granu locytes (promyelocytes, myelocytes and metamyelocytes) > 1% indicates that a LEFT SHIFT is Present. MCH (RBC) [Entitic mass] 25.6 pg 27.0-32.0 [facility] Nucleated RBC/100 WBC (Bld) [Ratio] 0 % 0-5 [facility] MCHC Auto (RBC) [Mass/Vol]Or dered By: Dr. Villatoro on 08-15-2022 MCHC (RBC) [Mass/Vol] 31.4 g/dL 32-36 [facility] No Panel InformationOrdered By: Dr. Villatoro on 08-15-2022 Estimated Creatinine Clearance Calc 110.01 ml/min [facility] Estimated GFR (MDRD) Amer 125 mL/min >60 [facility] Comment on above: GFR Calc Estimated GFR (MDRD) Non-Af Amer 104 mL/min >60 [facility] Comment on above: Non- GFR Calc Platelets bldOrdered By: Dr. Villatoro on 08-15-2022 Platelets (Bld) [#/Vol] 458 10*3/uL 150-450 [facility] Serum or plasma C reactive p rotein measurement (mass/volume)Ordered By: Dr. Villatoro on 08-15-2022 CRP [Mass/Vol] 119.00 mg/L 0.0-3.0 [facility] Comment on above: C-Reactive Protein ( CRP) provides useful information for thediagnosis, therapy and monitoring of inflammatory processesand associated diseases. For the evaluation of Relative Riskfor Cardiovascular Disease, a High Sensitivity CRP (HSCRP)should be ordered. Serum or plasma calcium hussein urement (mass/volume)Ordered By: Dr. Villatoro on 08-15-2022 Calcium [Mass/Vol] 8.4 mg/dL 8.5-10.1 [facility] Serum or plasma creatinine m easurement (mass/volume)Ordered By: Dr. Villatoro on 08-15-2022 Creatinine [Mass/Vol] 0.70 mg/dL 0.55-1.02 [facility] Comment on above: The validity of the calculated GFR & GFRAA in patients over 70 years has not been determined. Clinical correlation is essential. Serum or plasma urea nitroge n measurement (mass/volume)Ordered By: Dr. Villatoro on 08-15-2022 Urea nitrogen [Mass/Vol] 5 mg/dL 7-18 [facility] Thin prep Papanicolaou smear with manual screeningOrdered By: Dr. Villatoro on 08-15-2022 Thin prep Papanicolaou smear with manual screening 9 5-15 [facility] Culture, urineOrdered By: Dr Marine Christiansen on 08-14-2022 Bacteria identified Cx Nom (U) Escherichia coli [facility] Basophil percentageOrdered B y: Dr. Urbina on 08-13-2022 Bilirubin [Mass/Vol] 0.50 mg/dL 0.20-1.00 [facility] Comment on above: For patients on eltr ombopag therapy, use of Dimension [place] TBIL is not recommended. Protein [Mass/Vol] 8.1 g/dL 6.4-8.2 [facility] Erythrocyte sedimentation ra teOrdered By: Dr. Villatoro on 08-13-2022 ESR (Bld) [Velocity] 43 mm/h 0-30 [facility] Laboratory - Chemistry and C hemistry - challengeOrdered By: Dr. Urbina on 08-13-2022 ALP [Catalytic activity/Vol] 99 U/L 45-117 [facility] ALT [Catalytic activity/Vol] 11 U/L 13-56 [facility] Globulin (S) [Mass/Vol] 5.6 g/dL 2.2-4.2 [facility] Magnesium [Mass/Vol] 2.2 mg/dL 1.6-2.6 [facility] Serum or plasma albumin hussein urement (mass/volume)Ordered By: Dr. Urbina on 08-13-2022 Albumin [Mass/Vol] 2.5 g/dL 3.2-5.0 [facility] Serum or plasma albumin/glob ulin mass ratioOrdered By: Dr. Urbina on 08-13-2022 Albumin/Globulin [Mass ratio] 0.4 {ratio} 0.9-2.4 [facility] Thin prep Papanicolaou smear with manual screeningOrdered By: Dr. Urbina on 08-13-2022 Thin prep Papanicolaou smear with manual screening 8 U/L 15-37 [facility] Absolute lymphocyte countOrd ered By: Dr. Christiansen on 08-12-2022 Lymphocytes Auto (Unsp spec) [#/Vol] 3.81 10*3/uL 0.83-4.51 [facility] Basophil percentageOrdered B y: Dr. Christiansen on 08-12-2022 Basophil percentage 10-25 SEEN /hpf 0-5 [facility] Basophils/100 WBC (Bld) 0.3 % 0-1 [facility] Bilirubin [Mass/Vol] 0.50 mg/dL 0.20-1.00 [facility] Comment on above: For patients on eltr ombopag therapy, use of Dimension [place] TBIL is not recommended. Chloride [Moles/Vol] 95 mmol/L 98-107 [facility] Eosinophils/100 WBC (Bld) 0.1 % 0-5 [facility] Glucose [Mass/Vol] 230 mg/dL 74-106 [facility] Comment on above: Glucose result great er than or equal to 200 mg/dLsuggests DIABETES MELLITUS per A.D.A. criteria. Neutrophils (Bld) [#/Vol] 13.2 10*3/uL 2.0-7.7 [facility] Neutrophils/100 WBC (Bld) 69.8 % 47-70 [facility] Potassium [Moles/Vol] 3.9 mmol/L 3.5-5.1 [facility] Comment on above: Slight Hemolysis, Re sult may be falsely increased. Protein [Mass/Vol] 9.2 g/dL 6.4-8.2 [facility] Sodium [Moles/Vol] 130 mmol/L 136-145 [facility] WBC (Bld) [#/Vol] 18.9 10*3/uL 4.4-11.0 [facility] Bilirubin Test strip Ql (U)O rdered By: Dr. Christiansen on 08-12-2022 Bilirubin Ql (U) Negative Negative [facility] Blood erythrocytes count (nu mber/volume)Ordered By: Dr. Christiansen on 08-12-2022 RBC (Bld) [#/Vol] 4.35 10*6/uL 4.2-5.4 [facility] Blood hemoglobin measurement (mass/volume)Ordered By: Dr. Christiansen on 08-12-2022 Hemoglobin (Bld) [Mass/Vol] 11.4 g/dL 12.0-15.0 [facility] Blood lymphocytes/100 leukoc ytesOrdered By: Dr. Christiansen on 08-12-2022 Lymphocytes/100 WBC (Bld) 20.1 % 19-41 [facility] Blood manual differential co mment interpretation (narrative result)Ordered By: Dr. Christiansen on 08-12-2022 Manual differential comment Franky (Bld) [Interp] SCANNED [facility] Comment on above: MONOCYTOSIS NOTED Blood monocytes/100 leukocyt esOrdered By: Dr. Christiansen on 08-12-2022 Monocytes/100 WBC (Bld) 8.7 % 0-10 [facility] Blood platelet mean volumeOr dered By: Dr. Christiansen on 08-12-2022 Platelet mean volume (Bld) [Entitic vol] 9.3 fL 6.2-12.0 [facility] Determination of erythrocyte mean corpuscular volume (MCV)Ordered By: Dr. Christiansen on 08-12-2022 MCV (RBC) [Entitic vol] 78.2 fL 81-99 [facility] Glucose Glucometer (BldC) [M ass/Vol]Ordered By: Dr. Urbina on 08-12-2022 Glucose [Mass/Vol] 212 mg/dL 74-106 [facility] Comment on above: MANAGEMENT OF PATIEN T CARE PER NURSING PROTOCOL Hematocrit Auto (Bld) [Volum e fraction]Ordered By: Dr. Christiansen on 08-12-2022 Hematocrit (Bld) [Volume fraction] 34.0 % 37-47 [facility] Ketones Test strip Ql (U)Ord ered By: Dr. Christiansen on 08-12-2022 Ketones Ql (U) 15 mg/dl Negative [facility] Laboratory - Chemistry and C hemistry - challengeOrdered By: Dr. Christiansen on 08-12-2022 ALP [Catalytic activity/Vol] 136 U/L 45-117 [facility] ALT [Catalytic activity/Vol] 13 U/L 13-56 [facility] CO2 [Moles/Vol] 23.0 mmol/L 21.0-32.0 [facility] Globulin (S) [Mass/Vol] 6.3 g/dL 2.2-4.2 [facility] Magnesium [Mass/Vol] 1.6 mg/dL 1.6-2.6 [facility] Comment on above: Slight Hemolysis, Re sult may be falsely increased. Urea nitrogen/Creatinine [Mass ratio] 7.2 mg/mg 10-20 [facility] Laboratory - Hematology and Cell countsOrdered By: Dr. Christiansen on 08-12-2022 Erythrocyte distribution width (RBC) [Entitic vol] 36.9 fL 35.1-43.9 [facility] Erythrocyte distribution width (RBC) [Ratio] 12.9 % 11.6-14.6 [facility] Immature granulocytes/100 WBC (Bld) 1.000 % 0.0-0.9 [facility] Comment on above: IG% - Immature Granu locytes (promyelocytes, myelocytes and metamyelocytes) > 1% indicates that a LEFT SHIFT is Present. MCH (RBC) [Entitic mass] 26.2 pg 27.0-32.0 [facility] Nucleated RBC/100 WBC (Bld) [Ratio] 0 % 0-5 [facility] MCHC Auto (RBC) [Mass/Vol]Or dered By: Dr. Christiansen on 08-12-2022 MCHC (RBC) [Mass/Vol] 33.5 g/dL 32-36 [facility] Mucus LM Ql (Urine sed)Order ed By: Dr. Christiansen on 08-12-2022 Mucus Ql (Urine sed) 0 SEEN /hpf [facility] Nitrite Test strip Ql (U)Ord ered By: Dr. Christiansen on 08-12-2022 Nitrite Ql (U) Negative Negative [facility] No Panel InformationOrdered By: Dr. Christiansen on 08-12-2022 Estimated Creatinine Clearance Calc 69.38 ml/min [facility] Estimated GFR (MDRD) Amer 74 mL/min >60 [facility] Comment on above: GFR Calc Estimated GFR (MDRD) Non-Af Amer 61 mL/min >60 [facility] Comment on above: Non- GFR Calc Troponin I High Sensitivity 6 pg/mL 3.0-54.0 [facility] Comment on above: Please Note: New [place] t Units and Gender Specific Reference Ranges. For more information see Policy Stat Procedure [place] High Sensitivity Troponin (TNIH) and attachments. Platelets bldOrdered By: Dr. Christiansen on 08-12-2022 Platelets (Bld) [#/Vol] 453 10*3/uL 150-450 [facility] Protein Test strip Ql (U)Ord ered By: Dr. Christiansen on 08-12-2022 Protein Ql (U) 100 mg/dl Negative [facility] Review by pathologistOrdered By: Dr. Christiansen on 08-12-2022 Pathologist review Franky (Unsp spec) [Interp] Zahraa waite [facility] Pathologist review Franky (Unsp spec) [Interp] Reviewed [facility] Comment on above: Previous reported re sult: Zahraa waite Edited by: RGOOD on 08/14/22:0949Neutrophilic leukocytosis.Microcytic RBCs.Clinical correlation suggested.Franki Glez D.O. 08/14/22 AMENDED REPORT 08/14/22 0949 PATH REV previously reported as: May foll Serum or plasma acetone hussein urement (mass/volume)Ordered By: Dr. Christiansen on 08-12-2022 Acetone [Mass/Vol] Negative NEG [facility] Serum or plasma albumin hussein urement (mass/volume)Ordered By: Dr. Christiansen on 08-12-2022 Albumin [Mass/Vol] 2.9 g/dL 3.2-5.0 [facility] Serum or plasma albumin/glob ulin mass ratioOrdered By: Dr. Christiansen on 08-12-2022 Albumin/Globulin [Mass ratio] 0.5 {ratio} 0.9-2.4 [facility] Serum or plasma calcium hussein urement (mass/volume)Ordered By: Dr. Christiansen on 08-12-2022 Calcium [Mass/Vol] 9.6 mg/dL 8.5-10.1 [facility] Serum or plasma creatinine m easurement (mass/volume)Ordered By: Dr. Christiansen on 08-12-2022 Creatinine [Mass/Vol] 1.11 mg/dL 0.55-1.02 [facility] Comment on above: The validity of the calculated GFR & GFRAA in patients over 70 years has not been determined. Clinical correlation is essential. Serum or plasma urea nitroge n measurement (mass/volume)Ordered By: Dr. Christiansen on 08-12-2022 Urea nitrogen [Mass/Vol] 8 mg/dL 7-18 [facility] Squamous epithelial cells de tection in urine sediment by light microscopyOrdered By: Dr. Christiansen on 08-12-2022 Epithelial cells.squamous LM Ql (Urine sed) 0-5 SEEN /hpf 5-10 [facility] Thin prep Papanicolaou smear with manual screeningOrdered By: Dr. Christiansen on 08-12-2022 Thin prep Papanicolaou smear with manual screening 20 U/L 15-37 [facility] Comment on above: Slight Hemolysis, Re sult may be falsely increased. Thin prep Papanicolaou smear with manual screening 12 5-15 [facility] Urine blood detectionOrdered By: Dr. Christiansen on 08-12-2022 RBC Ql (U) 150 /ul Negative [facility] RBC Ql (U) 0 SEEN /hpf 0-5 [facility] Urine clarityOrdered By: Dr. Christiansen on 08-12-2022 Clarity (U) Clear Clear [facility] Urine color determinationOrd ered By: Dr. Christiansen on 08-12-2022 Color (U) Yellow Yellow [facility] Urine glucose detectionOrder ed By: Dr. Christiansen on 08-12-2022 Glucose Ql (U) 50 mg/dl Normal [facility] Urine leukocyte esterase det ection by dipstickOrdered By: Dr. Christiansen on 08-12-2022 Leukocyte esterase Test strip Ql (U) 100 /ul Negative [facility] Urine pHOrdered By: Dr. Ethan arriola on 08-12-2022 pH (U) 6.0 [pH] 5.0 - 8.0 [facility] Urine sediment bacteria coun t by microscopy (number/high power field)Ordered By: Dr. Christiansen on 08-12-2022 Bacteria LM.HPF (Urine sed) [#/Area] 0 /[HPF] None Seen [facility] Urine specific gravity measu rementOrdered By: Dr. Christiansen on 08-12-2022 Specific gravity (U) [Rel density] 1.010 1.002-1.030 [facility] Urobilinogen Auto test strip Ql (U)Ordered By: Dr. Christiansen on 08-12-2022 Urobilinogen Ql (U) Normal mg/dl Normal [facility] Acid fast bacilli (AFB) cult ureOrdered By: Dr. Matias on 08-09-2022 Mycobacterium sp identified Org specific cx Nom (Unsp spec) [facility] Thin prep Papanicolaou smear with manual screeningOrdered By: Dr. Matias on 08-09-2022 Thin prep Papanicolaou smear with manual screening [facility] Absolute lymphocyte countOrd ered By: Dr. Rao on 06-29-2022 Lymphocytes Auto (Unsp spec) [#/Vol] 2.81 10*3/uL 0.83-4.51 [facility] Basophil percentageOrdered B y: Dr. Rao on 06-29-2022 Basophils/100 WBC (Bld) 0.7 % 0-1 [facility] Chloride [Moles/Vol] 105 mmol/L 98-107 [facility] Eosinophils/100 WBC (Bld) 1.3 % 0-5 [facility] Glucose [Mass/Vol] 192 mg/dL 74-106 [facility] Comment on above: Fasting Glucose resu lt greater than or equal to 126 mg/dL suggests DIABETES MELLITUS per A.D.A. criteria. Neutrophils (Bld) [#/Vol] 4.2 10*3/uL 2.0-7.7 [facility] Neutrophils/100 WBC (Bld) 51.1 % 47-70 [facility] Potassium [Moles/Vol] 3.9 mmol/L 3.5-5.1 [facility] Sodium [Moles/Vol] 136 mmol/L 136-145 [facility] WBC (Bld) [#/Vol] 8.2 10*3/uL 4.4-11.0 [facility] Blood erythrocytes count (nu mber/volume)Ordered By: Dr. Rao on 06-29-2022 RBC (Bld) [#/Vol] 4.46 10*6/uL 4.2-5.4 [facility] Blood hemoglobin measurement (mass/volume)Ordered By: Dr. Rao on 06-29-2022 Hemoglobin (Bld) [Mass/Vol] 11.7 g/dL 12.0-15.0 [facility] Blood lymphocytes/100 leukoc ytesOrdered By: Dr. Rao on 06-29-2022 Lymphocytes/100 WBC (Bld) 34.3 % 19-41 [facility] Blood monocytes/100 leukocyt esOrdered By: Dr. Rao on 06-29-2022 Monocytes/100 WBC (Bld) 9.9 % 0-10 [facility] Blood platelet mean volumeOr dered By: Dr. Rao on 06-29-2022 Platelet mean volume (Bld) [Entitic vol] 9.1 fL 6.2-12.0 [facility] Determination of erythrocyte mean corpuscular volume (MCV)Ordered By: Dr. Rao on 06-29-2022 MCV (RBC) [Entitic vol] 81.8 fL 81-99 [facility] Glucose Glucometer (BldC) [M ass/Vol]Ordered By: Dr. Lr on 06-29-2022 Glucose [Mass/Vol] 251 mg/dL 74-106 [facility] Comment on above: MANAGEMENT OF PATIEN T CARE PER NURSING PROTOCOL Hematocrit Auto (Bld) [Volum e fraction]Ordered By: Dr. Rao on 06-29-2022 Hematocrit (Bld) [Volume fraction] 36.5 % 37-47 [facility] Laboratory - Chemistry and C hemistry - challengeOrdered By: Dr. Rao on 06-29-2022 CO2 [Moles/Vol] 24.0 mmol/L 21.0-32.0 [facility] Urea nitrogen/Creatinine [Mass ratio] 18.4 mg/mg 10-20 [facility] Laboratory - Hematology and Cell countsOrdered By: Dr. Rao on 06-29-2022 Erythrocyte distribution width (RBC) [Entitic vol] 41.2 fL 35.1-43.9 [facility] Erythrocyte distribution width (RBC) [Ratio] 14.1 % 11.6-14.6 [facility] Immature granulocytes/100 WBC (Bld) 2.700 % 0.0-0.9 [facility] Comment on above: IG% - Immature Granu locytes (promyelocytes, myelocytes and metamyelocytes) > 1% indicates that a LEFT SHIFT is Present. MCH (RBC) [Entitic mass] 26.2 pg 27.0-32.0 [facility] Nucleated RBC/100 WBC (Bld) [Ratio] 0.2 % 0-5 [facility] Laboratory - Microbiology an d Antimicrobial susceptibilityOrdered By: Dr. Hinson on 06-29-2022 Bacteria identified Cx Nom (Bld) No growth in 5 days. [facility] MCHC Auto (RBC) [Mass/Vol]Or dered By: Dr. Rao on 06-29-2022 MCHC (RBC) [Mass/Vol] 32.1 g/dL 32-36 [facility] No Panel InformationOrdered By: Dr. Rao on 06-29-2022 Estimated Creatinine Clearance Calc 108.46 ml/min [facility] Estimated GFR (MDRD) Amer 125 mL/min >60 [facility] Comment on above: GFR Calc Estimated GFR (MDRD) Non-Af Amer 103 mL/min >60 [facility] Comment on above: Non- GFR Calc Platelets bldOrdered By: Dr. Rao on 06-29-2022 Platelets (Bld) [#/Vol] 363 10*3/uL 150-450 [facility] Serum or plasma calcium hussein urement (mass/volume)Ordered By: Dr. Rao on 06-29-2022 Calcium [Mass/Vol] 8.4 mg/dL 8.5-10.1 [facility] Serum or plasma creatinine m easurement (mass/volume)Ordered By: Dr. Rao on 06-29-2022 Creatinine [Mass/Vol] 0.71 mg/dL 0.55-1.02 [facility] Comment on above: The validity of the calculated GFR & GFRAA in patients over 70 years has not been determined. Clinical correlation is essential. Serum or plasma urea nitroge n measurement (mass/volume)Ordered By: Dr. Rao on 06-29-2022 Urea nitrogen [Mass/Vol] 13 mg/dL 7-18 [facility] Thin prep Papanicolaou smear with manual screeningOrdered By: Dr. Rao on 06-29-2022 Thin prep Papanicolaou smear with manual screening 7 5-15 [facility] Vancomycin troughOrdered By: Dr. Rao on 06-28-2022 Vancomycin trough [Mass/Vol] 15.6 ug/mL 5.0-15.0 [facility] Comment on above: VANCOMYCIN STANDARED DRUG THERAPY TROUGH LEVEL: 5.0 - 15.0 mg/L VANCOMYCIN HIGH INTENSITY THERAPY TROUGH LEVEL: 15.0 - 20.0 mg/L High Intensity therapy recommended for serious lifethreatening infections include:- Ncmbpaxhkx-Czivykmmtqyp-Oedbpozvd (Ventilator/Healtcare Associated)-Sepsis PLEASE CONTACT PHARMACY SERVICES (#[id number]) FOR INTERPRETATIONOF RESULTS. Bacteria identified Cx Nom ( Wound)Ordered By: Dr. Matias on 06-26-2022 Wound Culture Streptococcus agalactiae (B) [facility] Culture, urineOrdered By: Dr Marine Hinson on 06-26-2022 Bacteria identified Cx Nom (U) Culture exhibits no growth. [facility] Laboratory - Chemistry and C hemistry - challengeOrdered By: Dr. Morton on 06-26-2022 HCG ( test) Ql (U) Negative [facility] Comment on above: Very dilute urine sp ecimens, as indicated by a low specificgravity, may not contain insurance follow up representative levels of hCG. If is still suspected, a first morning urinespecimen should be collected 48 hours later and tested. Absolute lymphocyte counton 06-25-2022 Lymphocytes Auto (Unsp spec) [#/Vol] 3.27 10*3/uL 0.83-4.51 [facility] Work Phone: Basophil percentageon 2021 Basophils/100 WBC (Bld) 0.7 % 0-1 [facility] Work Phone: Chloride [Moles/Vol] 104 mmol/L 98-107 [facility] Work Phone: Eosinophils/100 WBC (Bld) 1.2 % 0-5 [facility] Work Phone: Glucose [Mass/Vol] 261 mg/dL 74-106 [facility] Work Phone: Comment on above: Glucose result great er than or equal to 200 mg/dLsuggests DIABETES MELLITUS per A.D.A. criteria. Neutrophils (Bld) [#/Vol] 4.8 10*3/uL 2.0-7.7 [facility] Work Phone: Neutrophils/100 WBC (Bld) 53.1 % 47-70 [facility] Work Phone: Potassium [Moles/Vol] 4.3 mmol/L 3.5-5.1 [facility] Work Phone: Sodium [Moles/Vol] 135 mmol/L 136-145 [facility] Work Phone: WBC (Bld) [#/Vol] 9.0 10*3/uL 4.4-11.0 [facility] Work Phone: Blood erythrocytes count (nu mber/volume)on 06-25-2022 RBC (Bld) [#/Vol] 4.62 10*6/uL 4.2-5.4 [facility] Work Phone: Blood hemoglobin measurement (mass/volume)on 06-25-2022 Hemoglobin (Bld) [Mass/Vol] 12.1 g/dL 12.0-15.0 [facility] Work Phone: Blood lymphocytes/100 leukoc yteson 06-25-2022 Lymphocytes/100 WBC (Bld) 36.4 % 19-41 [facility] Work Phone: Blood monocytes/100 leukocyt eson 06-25-2022 Monocytes/100 WBC (Bld) 7.0 % 0-10 [facility] Work Phone: Blood platelet mean volumeon 06-25-2022 Platelet mean volume (Bld) [Entitic vol] 9.5 fL 6.2-12.0 [facility] Work Phone: Determination of erythrocyte mean corpuscular volume (MCV)on 06-25-2022 MCV (RBC) [Entitic vol] 82.0 fL 81-99 [facility] Work Phone: Glucose Glucometer (BldC) [M ass/Vol]on 06-25-2022 Glucose [Mass/Vol] 263 mg/dL 74-106 [facility] Work Phone: Comment on above: MANAGEMENT OF PATIEN T CARE PER NURSING PROTOCOL Hematocrit Auto (Bld) [Volum e fraction]on 06-25-2022 Hematocrit (Bld) [Volume fraction] 37.9 % 37-47 [facility] Work Phone: Laboratory - Chemistry and C hemistry - challengeon 06-25-2022 CO2 [Moles/Vol] 24.0 mmol/L 21.0-32.0 [facility] Work Phone: Urea nitrogen/Creatinine [Mass ratio] 13.1 mg/mg 10-20 [facility] Work Phone: [phone] Laboratory - Hematology and Cell countson 06-25-2022 Erythrocyte distribution width (RBC) [Entitic vol] 41.4 fL 35.1-43.9 [facility] Work Phone: [phone] Erythrocyte distribution width (RBC) [Ratio] 14.1 % 11.6-14.6 [facility] Work Phone: Immature granulocytes/100 WBC (Bld) 1.600 % 0.0-0.9 [facility] Work Phone: [phone] Comment on above: IG% - Immature Granu locytes (promyelocytes, myelocytes and metamyelocytes) > 1% indicates that a LEFT SHIFT is Present. MCH (RBC) [Entitic mass] 26.2 pg 27.0-32.0 [facility] Work Phone: [phone] Nucleated RBC/100 WBC (Bld) [Ratio] 0 % 0-5 [facility] Work Phone: [phone] MCHC Auto (RBC) [Mass/Vol]on 06-25-2022 MCHC (RBC) [Mass/Vol] 31.9 g/dL 32-36 [facility] Work Phone: No Panel Informationon 06-25 Estimated Creatinine Clearance Calc 101.33 ml/min [facility] Work Phone: [phone] Estimated GFR (MDRD) Amer 114 mL/min >60 [facility] Work Phone: [phone] Comment on above: GFR Calc Estimated GFR (MDRD) Non-Af Amer 95 mL/min >60 [facility] Work Phone: [phone] Comment on above: Non- GFR Calc Platelets bldon 06-25-2022 Platelets (Bld) [#/Vol] 353 10*3/uL 150-450 [facility] Work Phone: [phone] Serum or plasma calcium hussein urement (mass/volume)on 06-25-2022 Calcium [Mass/Vol] 8.6 mg/dL 8.5-10.1 [facility] Work Phone: [phone] Serum or plasma creatinine m easurement (mass/volume)on 06-25-2022 Creatinine [Mass/Vol] 0.76 mg/dL 0.55-1.02 [facility] Work Phone: [phone] Comment on above: The validity of the calculated GFR & GFRAA in patients over 70 years has not been determined. Clinical correlation is essential. Serum or plasma urea nitroge n measurement (mass/volume)on 06-25-2022 Urea nitrogen [Mass/Vol] 10 mg/dL 7-18 [facility] Work Phone: Thin prep Papanicolaou smear with manual screeningon 06-25-2022 Thin prep Papanicolaou smear with manual screening 7 -15 [facility] Work Phone: Absolute lymphocyte counton 06-24-2022 Lymphocytes Auto (Unsp spec) [#/Vol] 3.15 10*3/uL 0.83-4.51 [facility] Work Phone: Basophil percentageOrdered B y: Dr. Hinson on 06-24-2022 Lactate [Moles/Vol] 3.0 mmol/L 0.4-2.0 [facility] Comment on above: Critical Result(s) C alled at: 18:06:09 06/24/2022 by: LUIS E VALENZUELA.TO SIVA PACHECO RN MS-3 Results read back by same. Basophil percentage 0 SEEN /hpf 0-5 [facility] Bilirubin [Mass/Vol] 0.30 mg/dL 0.20-1.00 [facility] Comment on above: For patients on eltr ombopag therapy, use of Dimension [place] TBIL is not recommended. Protein [Mass/Vol] 8.0 g/dL 6.4-8.2 [facility] Basophil percentageon 2021 Basophils/100 WBC (Bld) 0.5 % 0-1 [facility] Work Phone: Chloride [Moles/Vol] 104 mmol/L 98-107 [facility] Work Phone: Eosinophils/100 WBC (Bld) 0.7 % 0-5 [facility] Work Phone: Glucose [Mass/Vol] 318 mg/dL 74-106 [facility] Work Phone: Comment on above: Glucose result great er than or equal to 200 mg/dLsuggests DIABETES MELLITUS per A.D.A. criteria. Lactate [Moles/Vol] 4.8 mmol/L 0.4-2.0 [facility] Work Phone: Comment on above: Critical Result(s) C alled at: 13:11:31 06/24/2022 by: Gayathri Edmond. Results read back by same. Neutrophils (Bld) [#/Vol] 5.1 10*3/uL 2.0-7.7 [facility] Work Phone: [phone] Neutrophils/100 WBC (Bld) 56.2 % 47-70 [facility] Work Phone: [phone] Potassium [Moles/Vol] 3.9 mmol/L 3.5-5.1 [facility] Work Phone: [phone] Sodium [Moles/Vol] 138 mmol/L 136-145 [facility] Work Phone: [phone] WBC (Bld) [#/Vol] 9.1 10*3/uL 4.4-11.0 [facility] Work Phone: Bilirubin Test strip Ql (U)O rdered By: Dr. Hinson on 06-24-2022 Bilirubin Ql (U) Negative Negative [facility] Blood erythrocytes count (nu mber/volume)on 06-24-2022 RBC (Bld) [#/Vol] 4.73 10*6/uL 4.2-5.4 [facility] Work Phone: Blood hemoglobin measurement (mass/volume)on 06-24-2022 Hemoglobin (Bld) [Mass/Vol] 12.8 g/dL 12.0-15.0 [facility] Work Phone: Blood lymphocytes/100 leukoc yteson 06-24-2022 Lymphocytes/100 WBC (Bld) 34.6 % 19-41 [facility] Work Phone: Blood monocytes/100 leukocyt eson 06-24-2022 Monocytes/100 WBC (Bld) 6.8 % 0-10 [facility] Work Phone: Blood platelet mean volumeon 06-24-2022 Platelet mean volume (Bld) [Entitic vol] 9.3 fL 6.2-12.0 [facility] Work Phone: Determination of erythrocyte mean corpuscular volume (MCV)on 06-24-2022 MCV (RBC) [Entitic vol] 81.2 fL 81-99 [facility] Work Phone: Gram stain for investigation of transfusion reactionOrdered By: Dr. Matias on 06-24-2022 Microscopic observation Gram stain Nom (Unsp spec) [facility] Hematocrit Auto (Bld) [Volum e fraction]on 06-24-2022 Hematocrit (Bld) [Volume fraction] 38.4 % 37-47 [facility] Work Phone: [phone] Ketones Test strip Ql (U)Ord ered By: Dr. Hinson on 06-24-2022 Ketones Ql (U) 15 mg/dl Negative [facility] Laboratory - Chemistry and C hemistry - challengeOrdered By: Dr. Hinson on 06-24-2022 ALP [Catalytic activity/Vol] 76 U/L 45-117 [facility] ALT [Catalytic activity/Vol] 22 U/L 13-56 [facility] Globulin (S) [Mass/Vol] 5.2 g/dL 2.2-4.2 [facility] Laboratory - Chemistry and C hemistry - challengeon 06-24-2022 CO2 [Moles/Vol] 28.0 mmol/L 21.0-32.0 [facility] Work Phone: Urea nitrogen/Creatinine [Mass ratio] 13.8 mg/mg 10-20 [facility] Work Phone: Laboratory - Hematology and Cell countson 06-24-2022 Erythrocyte distribution width (RBC) [Entitic vol] 41.3 fL 35.1-43.9 [facility] Work Phone: [phone] Erythrocyte distribution width (RBC) [Ratio] 14.2 % 11.6-14.6 [facility] Work Phone: Immature granulocytes/100 WBC (Bld) 1.200 % 0.0-0.9 [facility] Work Phone: [phone] Comment on above: IG% - Immature Granu locytes (promyelocytes, myelocytes and metamyelocytes) > 1% indicates that a LEFT SHIFT is Present. MCH (RBC) [Entitic mass] 27.1 pg 27.0-32.0 [facility] Work Phone: Nucleated RBC/100 WBC (Bld) [Ratio] 0 % 0-5 [facility] Work Phone: MCHC Auto (RBC) [Mass/Vol]on 06-24-2022 MCHC (RBC) [Mass/Vol] 33.3 g/dL 32-36 [facility] Work Phone: Mucus LM Ql (Urine sed)Order ed By: Dr. Hinson on 06-24-2022 Mucus Ql (Urine sed) 0 SEEN /hpf [facility] Nitrite Test strip Ql (U)Ord ered By: Dr. Hinson on 06-24-2022 Nitrite Ql (U) Negative Negative [facility] No Panel Informationon 06-24 Estimated Creatinine Clearance Calc 96.26 ml/min [facility] Work Phone: Estimated GFR (MDRD) Amer 109 mL/min >60 [facility] Work Phone: Comment on above: GFR Calc Estimated GFR (MDRD) Non-Af Amer 90 mL/min >60 [facility] Work Phone: Comment on above: Non- GFR Calc Platelets bldon 06-24-2022 Platelets (Bld) [#/Vol] 345 10*3/uL 150-450 [facility] Work Phone: Protein Test strip Ql (U)Ord ered By: Dr. Hinson on 06-24-2022 Protein Ql (U) 15 mg/dl Negative [facility] Serum or plasma albumin hussein urement (mass/volume)Ordered By: Dr. Hinson on 06-24-2022 Albumin [Mass/Vol] 2.8 g/dL 3.2-5.0 [facility] Serum or plasma albumin/glob ulin mass ratioOrdered By: Dr. Hinson on 06-24-2022 Albumin/Globulin [Mass ratio] 0.5 {ratio} 0.9-2.4 [facility] Serum or plasma calcium hussein urement (mass/volume)on 06-24-2022 Calcium [Mass/Vol] 9.1 mg/dL 8.5-10.1 [facility] Work Phone: Serum or plasma creatinine m easurement (mass/volume)on 06-24-2022 Creatinine [Mass/Vol] 0.80 mg/dL 0.55-1.02 [facility] Work Phone: Comment on above: The validity of the calculated GFR & GFRAA in patients over 70 years has not been determined. Clinical correlation is essential. Serum or plasma urea nitroge n measurement (mass/volume)on 06-24-2022 Urea nitrogen [Mass/Vol] 11 mg/dL 7-18 [facility] Work Phone: Squamous epithelial cells de tection in urine sediment by light microscopyOrdered By: Dr. Hinson on 06-24-2022 Epithelial cells.squamous LM Ql (Urine sed) 5-10 SEEN /hpf 5-10 [facility] Thin prep Papanicolaou smear with manual screeningOrdered By: Dr. Hinson on 06-24-2022 Thin prep Papanicolaou smear with manual screening 10 U/L 15-37 [facility] Thin prep Papanicolaou smear with manual screeningon 06-24-2022 Thin prep Papanicolaou smear with manual screening 6 5-15 [facility] Work Phone: Urine blood detectionOrdered By: Dr. Hinson on 06-24-2022 RBC Ql (U) 25 /ul Negative [facility] RBC Ql (U) 10-25 SEEN /hpf 0-5 [facility] Urine clarityOrdered By: Dr. Hinson on 06-24-2022 Clarity (U) Sl. Cloudy Clear [facility] Urine color determinationOrd ered By: Dr. Hinson on 06-24-2022 Color (U) Yellow Yellow [facility] Urine glucose detectionOrder ed By: Dr. Hinson on 06-24-2022 Glucose Ql (U) 1000 mg/dl Normal [facility] Urine leukocyte esterase det ection by dipstickOrdered By: Dr. Hinson on 06-24-2022 Leukocyte esterase Test strip Ql (U) Negative Negative [facility] Urine pHOrdered By: Dr. Vonda aden on 06-24-2022 pH (U) 5.0 [pH] 5.0 - 8.0 [facility] Urine sediment bacteria coun t by microscopy (number/high power field)Ordered By: Dr. Hinson on 06-24-2022 Bacteria LM.HPF (Urine sed) [#/Area] RARE /hpf None Seen [facility] Urine specific gravity measu rementOrdered By: Dr. Hinson on 06-24-2022 Specific gravity (U) [Rel density] 1.025 1.002-1.030 [facility] Urobilinogen Auto test strip Ql (U)Ordered By: Dr. Hinson on 06-24-2022 Urobilinogen Ql (U) Normal mg/dl Normal [facility] Whole blood hemoglobin A1c/t otal hemoglobin ratio (mass fraction)Ordered By: Dr. Rao on 06-24-2022 HbA1c (Bld) [Mass fraction] 10.6 % 3.8-5.6 [facility] Comment on above: Normal < 5.7 % Predi abetic 5.7 - 6.4 % Diabetic >or= 6.5 % Please note range changes. No Panel InformationOrdered By: Dr. Matias on 06-23-2022 Methicillin-Resist S.aureus DNA PCR Positive Negative [facility] Staphylococcus aureus DNA de tection by probe and target amplification methodOrdered By: Dr. Matias on 06-23-2022 S. aureus DNA REBECCA+probe Ql (Unsp spec) Positive Negative [facility] Absolute lymphocyte countOrd ered By: Dr. Matias on 05-07-2022 Lymphocytes Auto (Unsp spec) [#/Vol] 0.99 10*3/uL 0.83-4.51 [facility] Comment on above: Previous reported re sult: 5.07 X10^3/uLEdited by: BHUPINDER on 05/07/22:1437 AMENDED REPORT 05/07/22 1437 Absolute Lymph previously reported as: 5.07 H X10^3/uL Basophil percentageOrdered B y: Dr. Matias on 05-07-2022 Basophil percentage GRIZZLYMAN [facility] Comment on above: Previous reported re sult: 43.3 %Edited by: BHUPINDER on 05/07/22:1430 AMENDED REPORT 05/07/221429 NEUT% previously reported as: 43.3 L % Previous reported re sult: 3.7 %Edited by: BHUPINDER on 05/07/22:1430 AMENDED REPORT 05/07/221429 EO% previously reported as: 3.7 % Previous reported re sult: 0.6 %Edited by: BHUPINDER on 05/07/22:1430 AMENDED REPORT 05/07/221429 BASO% previously reported as: 0.6 % Bilirubin [Mass/Vol] 0.20 mg/dL 0.20-1.00 [facility] Comment on above: For patients on eltr ombopag therapy, use of Dimension [place] TBIL is not recommended. Chloride [Moles/Vol] 101 mmol/L 98-107 [facility] Glucose [Mass/Vol] 207 mg/dL 74-106 [facility] Comment on above: Glucose result great er than or equal to 200 mg/dLsuggests DIABETES MELLITUS per A.D.A. criteria. Neutrophils (Bld) [#/Vol] 8.8 10*3/uL 2.0-7.7 [facility] Comment on above: Previous reported re sult: 4.8 X10^3/uLEdited by: BHUPINDER on 05/07/22:1436 AMENDED REPORT 05/07/221435 Absolute Neut previously reported as: 4.8 X10^3/uL Potassium [Moles/Vol] 4.0 mmol/L 3.5-5.1 [facility] Protein [Mass/Vol] 8.4 g/dL 6.4-8.2 [facility] Sodium [Moles/Vol] 134 mmol/L 136-145 [facility] WBC (Bld) [#/Vol] 11.1 10*3/uL 4.4-11.0 [facility] Blood band neutrophil count as percentage of total leukocytesOrdered By: Dr. Matias on 05-07-2022 Band form neutrophils/100 WBC (Bld) 6 % 0-5 [facility] Blood erythrocytes count (nu mber/volume)Ordered By: Dr. Matias on 05-07-2022 RBC (Bld) [#/Vol] 4.81 10*6/uL 4.2-5.4 [facility] Blood hemoglobin measurement (mass/volume)Ordered By: Dr. Matias on 05-07-2022 Hemoglobin (Bld) [Mass/Vol] 13.0 g/dL 12.0-15.0 [facility] Blood lymphocytes/100 leukoc ytesOrdered By: Dr. Matias on 05-07-2022 Lymphocytes/100 WBC (Bld) GRIZZLYMAN [facility] Comment on above: Previous reported re sult: 45.7 %Edited by: BHUPINDER on 05/07/22:1430 AMENDED REPORT 05/07/22 1430 LY% previously reported as: 45.7 H % Lymphocytes/100 WBC (Bld) 9 % 19-41 [facility] Blood monocytes/100 leukocyt esOrdered By: Dr. Matias on 05-07-2022 Monocytes/100 WBC (Bld) GRIZZLYMAN [facility] Comment on above: Previous reported re sult: 5.2 %Edited by: BHUPINDER on 05/07/22:1430 AMENDED REPORT 05/07/22 1430 MONO% previously reported as: 5.2 % Monocytes/100 WBC (Bld) 12 % 0-10 [facility] Blood platelet mean volumeOr dered By: Dr. Matias on 05-07-2022 Platelet mean volume (Bld) [Entitic vol] 9.0 fL 6.2-12.0 [facility] Blood platelet morphology de termination (nominal result)Ordered By: Dr. Matias on 05-07-2022 Platelet morphology finding Nom (Bld) LARGE [facility] Blood segmented neutrophils/ [address]: [address] Matias on 05-07-2022 Segmented neutrophils/100 WBC (Bld) 73 % 47-70 [facility] Determination of erythrocyte mean corpuscular volume (MCV)Ordered By: Dr. Matias on 05-07-2022 MCV (RBC) [Entitic vol] 81.3 fL 81-99 [facility] Hematocrit Auto (Bld) [Volum e fraction]Ordered By: Dr. Matias on 05-07-2022 Hematocrit (Bld) [Volume fraction] 39.1 % 37-47 [facility] Laboratory - Chemistry and C hemistry - challengeOrdered By: Dr. Matias on 05-07-2022 ALP [Catalytic activity/Vol] 76 U/L 45-117 [facility] ALT [Catalytic activity/Vol] 23 U/L 13-56 [facility] CO2 [Moles/Vol] 25.0 mmol/L 21.0-32.0 [facility] Globulin (S) [Mass/Vol] 5.0 g/dL 2.2-4.2 [facility] Urea nitrogen/Creatinine [Mass ratio] 17.4 mg/mg 10-20 [facility] Laboratory - Hematology and Cell countsOrdered By: Dr. Matias on 05-07-2022 Erythrocyte distribution width (RBC) [Entitic vol] 41.1 fL 35.1-43.9 [facility] Erythrocyte distribution width (RBC) [Ratio] 14.0 % 11.6-14.6 [facility] MCH (RBC) [Entitic mass] 27.0 pg 27.0-32.0 [facility] Nucleated RBC/100 WBC (Bld) [Ratio] 0 % 0-5 [facility] MCHC Auto (RBC) [Mass/Vol]Or dered By: Dr. Matias on 05-07-2022 MCHC (RBC) [Mass/Vol] 33.2 g/dL 32-36 [facility] No Panel InformationOrdered By: Dr. Matias on 05-07-2022 Atypical Lymphocytes RARE % [facility] Estimated GFR (MDRD) Amer 99 mL/min >60 [facility] Comment on above: GFR Calc Estimated GFR (MDRD) Non-Af Amer 82 mL/min >60 [facility] Comment on above: Non- GFR Calc Immature Granulocyte % (Auto) GRIZZLYMAN [facility] Comment on above: Previous reported re sult: 1.500 %Edited by: BHUPINDER on 05/07/22:1431 AMENDED REPORT 05/07/22 1431 IM GRAN % previously reported as: 1.500 H % IG% - Immature Granulocytes (promyelocytes, myelocytes and metamyelocytes) > 1% indicates that a LEFT SHIFT is Present. Platelets bldOrdered By: Dr. Matias on 05-07-2022 Platelets (Bld) [#/Vol] 369 10*3/uL 150-450 [facility] RBC morphologyOrdered By: Dr Marine Matias on 05-07-2022 RBC morphology finding Nom (Bld) NORM C+C NORMAL NORM C&C [facility] Review by pathologiston 04-12 Pathologist review Franky (Unsp spec) [Interp] Zahraa waite [facility] Work Phone: Review by pathologistOrdered By: Dr. Matias on 05-07-2022 Pathologist review Franky (Unsp spec) [Interp] Reviewed [facility] Comment on above: Previous reported re sult: Zahraa waite Edited by: RGOOD on 05/08/22:1553Neutrophilic leukocytosis.Clinical correlation suggested.Franki Glez D.O. 05/08/22 AMENDED REPORT 05/08/22 1553 PATH REV previously reported as: Zahraa waite Serum or plasma albumin hussein urement (mass/volume)Ordered By: Dr. Matias on 05-07-2022 Albumin [Mass/Vol] 3.4 g/dL 3.2-5.0 [facility] Serum or plasma albumin/glob ulin mass ratioOrdered By: Dr. Matias on 05-07-2022 Albumin/Globulin [Mass ratio] 0.7 {ratio} 0.9-2.4 [facility] Serum or plasma calcium hussein urement (mass/volume)Ordered By: Dr. Matias on 05-07-2022 Calcium [Mass/Vol] 8.7 mg/dL 8.5-10.1 [facility] Serum or plasma creatinine m easurement (mass/volume)Ordered By: Dr. Matias on 05-07-2022 Creatinine [Mass/Vol] 0.86 mg/dL 0.55-1.02 [facility] Comment on above: The validity of the calculated GFR & GFRAA in patients over 70 years has not been determined. Clinical correlation is essential. Serum or plasma urea nitroge n measurement (mass/volume)Ordered By: Dr. Matias on 05-07-2022 Urea nitrogen [Mass/Vol] 15 mg/dL 7-18 [facility] Thin prep Papanicolaou smear with manual screeningOrdered By: Dr. Matias on 05-07-2022 Thin prep Papanicolaou smear with manual screening 10 U/L 15-37 [facility] Thin prep Papanicolaou smear with manual screening 8 5-15 [facility] Basophil percentageOrdered B y: [facility] on 04-20-2022 Chloride [Moles/Vol] 104 mmol/L 98-107 [facility] Glucose [Mass/Vol] 224 mg/dL 74-106 [facility] Comment on above: Glucose result great er than or equal to 200 mg/dLsuggests DIABETES MELLITUS per A.D.A. criteria. Potassium [Moles/Vol] 3.7 mmol/L 3.5-5.1 [facility] Sodium [Moles/Vol] 139 mmol/L 136-145 [facility] WBC (Bld) [#/Vol] 9.3 10*3/uL 4.4-11.0 [facility] Blood erythrocytes count (nu mber/volume)Ordered By: [facility] on 04-20-2022 RBC (Bld) [#/Vol] 3.93 10*6/uL 4.2-5.4 [facility] Blood hemoglobin measurement (mass/volume)Ordered By: [facility] on 04-20-2022 Hemoglobin (Bld) [Mass/Vol] 10.4 g/dL 12.0-15.0 [facility] Blood platelet mean volumeOr dered By: [facility] on 04-20-2022 Platelet mean volume (Bld) [Entitic vol] 9.6 fL 6.2-12.0 [facility] Determination of erythrocyte mean corpuscular volume (MCV)Ordered By: [facility] on 04-20-2022 MCV (RBC) [Entitic vol] 83.7 fL 81-99 [facility] Erythrocyte sedimentation ra teOrdered By: [facility] on 04-20-2022 ESR (Bld) [Velocity] 60 mm/h 0-30 [facility] Hematocrit Auto (Bld) [Volum e fraction]Ordered By: [facility] on 04-20-2022 Hematocrit (Bld) [Volume fraction] 32.9 % 37-47 [facility] Laboratory - Chemistry and C hemistry - challengeOrdered By: [facility] on 04-20-2022 CO2 [Moles/Vol] 28.0 mmol/L 21.0-32.0 [facility] Urea nitrogen/Creatinine [Mass ratio] 16.3 mg/mg 10-20 [facility] Laboratory - Hematology and Cell countsOrdered By: [facility] on 04-20-2022 Erythrocyte distribution width (RBC) [Entitic vol] 41.4 fL 35.1-43.9 [facility] Erythrocyte distribution width (RBC) [Ratio] 13.5 % 11.6-14.6 [facility] MCH (RBC) [Entitic mass] 26.5 pg 27.0-32.0 [facility] MCHC Auto (RBC) [Mass/Vol]Or dered By: [facility] on 04-20-2022 MCHC (RBC) [Mass/Vol] 31.6 g/dL 32-36 [facility] No Panel InformationOrdered By: [facility] on 04-20-2022 Estimated GFR (MDRD) Amer 147 mL/min >60 [facility] Comment on above: GFR Calc Estimated GFR (MDRD) Non-Af Amer 122 mL/min >60 [facility] Comment on above: Non- GFR Calc Platelets bldOrdered By: [facility] on 04-20-2022 Platelets (Bld) [#/Vol] 509 10*3/uL 150-450 [facility] Serum or plasma calcium hussein urement (mass/volume)Ordered By: [facility] on 04-20-2022 Calcium [Mass/Vol] 8.5 mg/dL 8.5-10.1 [facility] Serum or plasma creatinine m easurement (mass/volume)Ordered By: [facility] on 04-20-2022 Creatinine [Mass/Vol] 0.61 mg/dL 0.55-1.02 [facility] Comment on above: The validity of the calculated GFR & GFRAA in patients over 70 years has not been determined. Clinical correlation is essential. Serum or plasma urea nitroge n measurement (mass/volume)Ordered By: [facility] on 04-20-2022 Urea nitrogen [Mass/Vol] 10 mg/dL 7-18 [facility] Thin prep Papanicolaou smear with manual screeningOrdered By: [facility] on 04-20-2022 Thin prep Papanicolaou smear with manual screening 7 5-15 [facility] Vancomycin troughOrdered By: [facility] on 04-20-2022 Vancomycin trough [Mass/Vol] 7.2 ug/mL 5.0-15.0 [facility] Comment on above: VANCOMYCIN STANDARED DRUG THERAPY TROUGH LEVEL: 5.0 - 15.0 mg/L VANCOMYCIN HIGH INTENSITY THERAPY TROUGH LEVEL: 15.0 - 20.0 mg/L High Intensity therapy recommended for serious lifethreatening infections include:- Gdtpkvuqrv-Yfhjzjzphtie-Txyhpmxkg (Ventilator/Healtcare Associated)-Sepsis PLEASE CONTACT PHARMACY SERVICES (#[id number]) FOR INTERPRETATIONOF RESULTS. Basophil percentageon 2021 Chloride [Moles/Vol] 103 mmol/L 98-107 [facility] Work Phone: Glucose [Mass/Vol] 188 mg/dL 74-106 [facility] Work Phone: Comment on above: Fasting Glucose resu lt greater than or equal to 126 mg/dL suggests DIABETES MELLITUS per A.D.A. criteria. Potassium [Moles/Vol] 4.3 mmol/L 3.5-5.1 [facility] Work Phone: Sodium [Moles/Vol] 137 mmol/L 136-145 [facility] Work Phone: WBC (Bld) [#/Vol] 10.0 10*3/uL 4.4-11.0 [facility] Work Phone: Blood erythrocytes count (nu mber/volume)on 04-13-2022 RBC (Bld) [#/Vol] 4.32 10*6/uL 4.2-5.4 [facility] Work Phone: Blood hemoglobin measurement (mass/volume)on 04-13-2022 Hemoglobin (Bld) [Mass/Vol] 11.5 g/dL 12.0-15.0 [facility] Work Phone: [phone] Blood platelet mean volumeon 04-13-2022 Platelet mean volume (Bld) [Entitic vol] 9.2 fL 6.2-12.0 [facility] Work Phone: [phone] Determination of erythrocyte mean corpuscular volume (MCV)on 04-13-2022 MCV (RBC) [Entitic vol] 84.7 fL 81-99 [facility] Work Phone: [phone] Erythrocyte sedimentation ra abeba 04-13-2022 ESR (Bld) [Velocity] 90 mm/h 0-30 [facility] Work Phone: [phone] Hematocrit Auto (Bld) [Volum e fraction]on 04-13-2022 Hematocrit (Bld) [Volume fraction] 36.6 % 37-47 [facility] Work Phone: [phone] Laboratory - Chemistry and C hemistry - challengeon 04-13-2022 CO2 [Moles/Vol] 25.0 mmol/L 21.0-32.0 [facility] Work Phone: [phone] Urea nitrogen/Creatinine [Mass ratio] 18.8 mg/mg 10-20 [facility] Work Phone: [phone] Laboratory - Hematology and Cell countson 04-13-2022 Erythrocyte distribution width (RBC) [Entitic vol] 41.8 fL 35.1-43.9 [facility] Work Phone: [phone] Erythrocyte distribution width (RBC) [Ratio] 13.4 % 11.6-14.6 [facility] Work Phone: [phone] MCH (RBC) [Entitic mass] 26.6 pg 27.0-32.0 [facility] Work Phone: [phone] MCHC Auto (RBC) [Mass/Vol]on 04-13-2022 MCHC (RBC) [Mass/Vol] 31.4 g/dL 32-[address] [facility] Work Phone: No Panel Informationon 04-13 Estimated GFR (MDRD) Amer 128 mL/min >60 [facility] Work Phone: Comment on above: GFR Calc Estimated GFR (MDRD) Non-Af Amer 106 mL/min >60 [facility] Work Phone: Comment on above: Non- GFR Calc Platelets bldon 04-13-2022 Platelets (Bld) [#/Vol] 609 10*3/uL 150-450 [facility] Work Phone: Serum or plasma calcium hussein urement (mass/volume)on 04-13-2022 Calcium [Mass/Vol] 9.4 mg/dL 8.5-10.1 [facility] Work Phone: Serum or plasma creatinine m easurement (mass/volume)on 04-13-2022 Creatinine [Mass/Vol] 0.69 mg/dL 0.55-1.02 [facility] Work Phone: Comment on above: The validity of the calculated GFR & GFRAA in patients over 70 years has not been determined. Clinical correlation is essential. Serum or plasma urea nitroge n measurement (mass/volume)on 04-13-2022 Urea nitrogen [Mass/Vol] 13 mg/dL 7-18 [facility] Work Phone: Thin prep Papanicolaou smear with manual screeningon 04-13-2022 Thin prep Papanicolaou smear with manual screening 9 5-15 [facility] Work Phone: [phone] Vancomycin troughon 04-13-20 Vancomycin trough [Mass/Vol] 19.3 ug/mL 5.0-15.0 [facility] Work Phone: Comment on above: VANCOMYCIN STANDARED DRUG THERAPY TROUGH LEVEL: 5.0 - 15.0 mg/L VANCOMYCIN HIGH INTENSITY THERAPY TROUGH LEVEL: 15.0 - 20.0 mg/L High Intensity therapy recommended for serious lifethreatening infections include:- Cacnxdwkjl-Jrkmiypwdlnl-Begchixjr (Ventilator/Healtcare Associated)-Sepsis PLEASE CONTACT PHARMACY SERVICES (#[id number]) FOR INTERPRETATIONOF RESULTS. Basophil percentageon 2021 Chloride [Moles/Vol] 100 mmol/L 98-107 [facility] Work Phone: [phone] Cholesterol [Mass/Vol] 143 mg/dL <200 [facility] Work Phone: [phone] Comment on above: <200 mg/dL Desirable 200-240 mg/dL Borderline >240 mg/dL High Risk Glucose [Mass/Vol] 217 mg/dL 74-106 [facility] Work Phone: Comment on above: Glucose result great er than or equal to 200 mg/dLsuggests DIABETES MELLITUS per A.D.A. criteria. Potassium [Moles/Vol] 3.7 mmol/L 3.5-5.1 [facility] Work Phone: Sodium [Moles/Vol] 137 mmol/L 136-145 [facility] Work Phone: [phone] Triglyceride [Mass/Vol] 170 mg/dL <199 [facility] Work Phone: Comment on above: The drugs N-Acetylcy steine and Metamizole may falsely depress this assay.Serum Triglycerides Reference Interval Normal <150 mg/dL Borderline high 150 - 199 mg/dL High 200 - 499 mg/dL Very High > or = 500 mg/dL WBC (Bld) [#/Vol] 9.1 10*3/uL 4.4-11.0 [facility] Work Phone: [phone] Blood erythrocytes count (nu mber/volume)on 04-10-2022 RBC (Bld) [#/Vol] 3.85 10*6/uL 4.2-5.4 [facility] Work Phone: [phone] Blood hemoglobin measurement (mass/volume)on 04-10-2022 Hemoglobin (Bld) [Mass/Vol] 10.2 g/dL 12.0-15.0 [facility] Work Phone: [phone] Blood platelet mean volumeon 04-10-2022 Platelet mean volume (Bld) [Entitic vol] 9.1 fL 6.2-12.0 [facility] Work Phone: [phone] Determination of erythrocyte mean corpuscular volume (MCV)on 04-10-2022 MCV (RBC) [Entitic vol] 82.6 fL 81-99 [facility] Work Phone: [phone] Erythrocyte sedimentation ra abeba 04-10-2022 ESR (Bld) [Velocity] 58 mm/h 0-30 [facility] Work Phone: [phone] Hematocrit Auto (Bld) [Volum e fraction]on 04-10-2022 Hematocrit (Bld) [Volume fraction] 31.8 % 37-47 [facility] Work Phone: [phone] Laboratory - Chemistry and C hemistry - challengeon 04-10-2022 CO2 [Moles/Vol] 32.0 mmol/L 21.0-32.0 [facility] Work Phone: [phone] Cobalamin (Vitamin B12) [Mass/Vol] 216 pg/mL 211-911 [facility] Work Phone: [phone] Urea nitrogen/Creatinine [Mass ratio] 22.7 mg/mg 10-20 [facility] Work Phone: [phone] Laboratory - Hematology and Cell countson 04-10-2022 Erythrocyte distribution width (RBC) [Entitic vol] 39.7 fL 35.1-43.9 [facility] Work Phone: [phone] Erythrocyte distribution width (RBC) [Ratio] 13.2 % 11.6-14.6 [facility] Work Phone: [phone] MCH (RBC) [Entitic mass] 26.5 pg 27.0-32.0 [facility] Work Phone: [phone] MCHC Auto (RBC) [Mass/Vol]on 04-10-2022 MCHC (RBC) [Mass/Vol] 32.1 g/dL 32-36 [facility] Work Phone: [phone] No Panel Informationon 04-10 Estimated GFR (MDRD) Amer 146 mL/min >60 [facility] Work Phone: [phone] Comment on above: GFR Calc Estimated GFR (MDRD) Non-Af Amer 120 mL/min >60 [facility] Work Phone: Comment on above: Non- GFR Calc Vitamin D 25-Hydroxy 18.5 ng/mL [facility] Work Phone: Comment on above: Vitamin D 25(OH) Sta tus Range Deficiency <20 ng/mL (50nmol/L) Insufficiency 20 - 30 ng/mL (50 - 75 nmol/L) Sufficiency 30 - 100 ng/mL (75 - 250 nmol/L) Toxicity >100 ng/mL (>250 nmol/L) Platelets bldon 04-10-2022 Platelets (Bld) [#/Vol] 540 10*3/uL 150-450 [facility] Work Phone: Serum or plasma calcium hussein urement (mass/volume)on 04-10-2022 Calcium [Mass/Vol] 8.9 mg/dL 8.5-10.1 [facility] Work Phone: Serum or plasma cholesterol in HDL measurement (mass/volume)on 04-10-2022 Cholesterol in HDL [Mass/Vol] 23 mg/dL >40 [facility] Work Phone: Comment on above: The drugs N-Acetylcy steine and Metamizole may falsely depress this assay. Reference Range HDL <40 mg/dL Low HDL Cholesterol HDL >or= 60 mg/dL High HDL Cholesterol Serum or plasma cholesterol in VLDL measurement (mass/volume)on 04-10-2022 Cholesterol in VLDL [Mass/Vol] 34 mg/dL 5-40 [facility] Work Phone: Serum or plasma creatinine m easurement (mass/volume)on 04-10-2022 Creatinine [Mass/Vol] 0.62 mg/dL 0.55-1.02 [facility] Work Phone: Comment on above: The validity of the calculated GFR & GFRAA in patients over 70 years has not been determined. Clinical correlation is essential. Serum or plasma low density lipoprotein (LDL) cholesterol measurement (mass/volume)on 04-10-2022 Cholesterol in LDL [Mass/Vol] 86 mg/dL 0-130 [facility] Work Phone: Serum or plasma transthyreti n measurement (mass/volume)on 04-10-2022 Prealbumin [Mass/Vol] 11.5 mg/dL 20.0-40.0 [facility] Work Phone: Serum or plasma urea nitroge n measurement (mass/volume)on 04-10-2022 Urea nitrogen [Mass/Vol] 14 mg/dL 7-18 [facility] Work Phone: Thin prep Papanicolaou smear with manual screeningon 04-10-2022 Thin prep Papanicolaou smear with manual screening 5 5-15 [facility] Work Phone: Absolute lymphocyte counton 04-09-2022 Lymphocytes Auto (Unsp spec) [#/Vol] 2.68 10*3/uL 0.83-4.51 [facility] Work Phone: Basophil percentageon 2021 Basophils/100 WBC (Bld) 0.8 % 0-1 [facility] Work Phone: Chloride [Moles/Vol] 102 mmol/L 98-107 [facility] Work Phone: Eosinophils/100 WBC (Bld) 3.2 % 0-5 [facility] Work Phone: Glucose [Mass/Vol] 190 mg/dL 74-106 [facility] Work Phone: Comment on above: Fasting Glucose resu lt greater than or equal to 126 mg/dL suggests DIABETES MELLITUS per A.D.A. criteria. Neutrophils (Bld) [#/Vol] 3.7 10*3/uL 2.0-7.7 [facility] Work Phone: Neutrophils/100 WBC (Bld) 49.3 % 47-70 [facility] Work Phone: Potassium [Moles/Vol] 3.6 mmol/L 3.5-5.1 [facility] Work Phone: Sodium [Moles/Vol] 138 mmol/L 136-145 [facility] Work Phone: WBC (Bld) [#/Vol] 7.5 10*3/uL 4.4-11.0 [facility] Work Phone: Blood erythrocytes count (nu mber/volume)on 04-09-2022 RBC (Bld) [#/Vol] 3.73 10*6/uL 4.2-5.4 [facility] Work Phone: Blood hemoglobin measurement (mass/volume)on 04-09-2022 Hemoglobin (Bld) [Mass/Vol] 9.8 g/dL 12.0-15.0 [facility] Work Phone: Blood lymphocytes/100 leukoc yteson 04-09-2022 Lymphocytes/100 WBC (Bld) 35.8 % 19-41 [facility] Work Phone: Blood monocytes/100 leukocyt eson 04-09-2022 Monocytes/100 WBC (Bld) 9.2 % 0-10 [facility] Work Phone: Blood platelet mean volumeon 04-09-2022 Platelet mean volume (Bld) [Entitic vol] 8.8 fL 6.2-12.0 [facility] Work Phone: Determination of erythrocyte mean corpuscular volume (MCV)on 04-09-2022 MCV (RBC) [Entitic vol] 81.8 fL 81-99 [facility] Work Phone: Glucose Glucometer (BldC) [M ass/Vol]on 04-09-2022 Glucose [Mass/Vol] 251 mg/dL 74-106 [facility] Work Phone: Comment on above: MANAGEMENT OF PATIEN T CARE PER NURSING PROTOCOL Glucose [Mass/Vol] 281 mg/dL 74-106 [facility] Work Phone: Comment on above: MANAGEMENT OF PATIEN T CARE PER NURSING PROTOCOL Hematocrit Auto (Bld) [Volum e fraction]on 04-09-2022 Hematocrit (Bld) [Volume fraction] 30.5 % 37-47 [facility] Work Phone: Laboratory - Chemistry and C hemistry - challengeon 04-09-2022 CO2 [Moles/Vol] 28.0 mmol/L 21.0-32.0 [facility] Work Phone: [phone] Urea nitrogen/Creatinine [Mass ratio] 17.2 mg/mg 10-20 [facility] Work Phone: [phone] Laboratory - Hematology and Cell countson 04-09-2022 Erythrocyte distribution width (RBC) [Entitic vol] 38.9 fL 35.1-43.9 [facility] Work Phone: [phone] Erythrocyte distribution width (RBC) [Ratio] 13.0 % 11.6-14.6 [facility] Work Phone: [phone] Immature granulocytes/100 WBC (Bld) 1.700 % 0.0-0.9 [facility] Work Phone: [phone] Comment on above: IG% - Immature Granu locytes (promyelocytes, myelocytes and metamyelocytes) > 1% indicates that a LEFT SHIFT is Present. MCH (RBC) [Entitic mass] 26.3 pg 27.0-32.0 [facility] Work Phone: [phone] Nucleated RBC/100 WBC (Bld) [Ratio] 0 % 0-5 [facility] Work Phone: [phone] MCHC Auto (RBC) [Mass/Vol]on 04-09-2022 MCHC (RBC) [Mass/Vol] 32.1 g/dL 32-36 [facility] Work Phone: [phone] Panel Informationon 04-09 Estimated Creatinine Clearance Calc 120.32 ml/min [facility] Work Phone: [phone] Estimated GFR (MDRD) Amer 140 mL/min >60 [facility] Work Phone: [phone] Comment on above: GFR Calc Estimated GFR (MDRD) Non-Af Amer 116 mL/min >60 [facility] Work Phone: [phone] Comment on above: Non- GFR Calc Platelets bldon 04-09-2022 Platelets (Bld) [#/Vol] 478 10*3/uL 150-450 [facility] Work Phone: [phone] Serum or plasma calcium hussein urement (mass/volume)on 04-09-2022 Calcium [Mass/Vol] 8.7 mg/dL 8.5-10.1 [facility] Work Phone: Serum or plasma creatinine m easurement (mass/volume)on 04-09-2022 Creatinine [Mass/Vol] 0.64 mg/dL 0.55-1.02 [facility] Work Phone: Comment on above: The validity of the calculated GFR & GFRAA in patients over 70 years has not been determined. Clinical correlation is essential. Serum or plasma urea nitroge n measurement (mass/volume)on 04-09-2022 Urea nitrogen [Mass/Vol] 11 mg/dL 7-18 [facility] Work Phone: Thin prep Papanicolaou smear with manual screeningon 04-09-2022 Thin prep Papanicolaou smear with manual screening 8 5-15 [facility] Work Phone: Blood manual differential co mment interpretation (narrative result)on 04-08-2022 Manual differential comment Franky (Bld) [Interp] SCANNED [facility] Work Phone: Blood platelet adequacy dete ction by light microscopyon 04-08-2022 Platelets LM Ql (Bld) ADEQUATE ADEQ [facility] Work Phone: Vancomycin troughon 04-08-20 Vancomycin trough [Mass/Vol] 10.2 ug/mL 5.0-15.0 [facility] Work Phone: Comment on above: VANCOMYCIN STANDARED DRUG THERAPY TROUGH LEVEL: 5.0 - 15.0 mg/L VANCOMYCIN HIGH INTENSITY THERAPY TROUGH LEVEL: 15.0 - 20.0 mg/L High Intensity therapy recommended for serious lifethreatening infections include:- Vcsqpcjjqv-Fridlvejzrlg-Fdonyopox (Ventilator/Healtcare Associated)-Sepsis PLEASE CONTACT PHARMACY SERVICES (#[id number]) FOR INTERPRETATIONOF RESULTS. Basophil percentageon 2021 Bilirubin [Mass/Vol] 0.70 mg/dL 0.20-1.00 [facility] Work Phone: Comment on above: For patients on eltr ombopag therapy, use of Dimension [place] TBIL is not recommended. Protein [Mass/Vol] 7.7 g/dL 6.4-8.2 [facility] Work Phone: Laboratory - Chemistry and C hemistry - challengeon 04-07-2022 ALP [Catalytic activity/Vol] 121 U/L 45-117 [facility] Work Phone: ALT [Catalytic activity/Vol] 9 U/L 13-56 [facility] Work Phone: [phone] Globulin (S) [Mass/Vol] 5.4 g/dL 2.2-4.2 [facility] Work Phone: Serum or plasma albumin hussein urement (mass/volume)on 04-07-2022 Albumin [Mass/Vol] 2.3 g/dL 3.2-5.0 [facility] Work Phone: Serum or plasma albumin/glob ulin mass ratioon 04-07-2022 Albumin/Globulin [Mass ratio] 0.4 {ratio} 0.9-2.4 [facility] Work Phone: Thin prep Papanicolaou smear with manual screeningon 04-07-2022 Thin prep Papanicolaou smear with manual screening 6 U/L 15-37 [facility] Work Phone: [phone] Absolute lymphocyte counton 04-06-2022 Lymphocytes Auto (Unsp spec) [#/Vol] 2.55 10*3/uL 0.83-4.51 [facility] Work Phone: Basophil percentageon 2021 Basophils/100 WBC (Bld) 0.2 % 0-1 [facility] Work Phone: Chloride [Moles/Vol] 94 mmol/L 98-107 [facility] Work Phone: Eosinophils/100 WBC (Bld) 0.0 % 0-5 [facility] Work Phone: Glucose [Mass/Vol] 396 mg/dL 74-106 [facility] Work Phone: Comment on above: Glucose result great er than or equal to 200 mg/dLsuggests DIABETES MELLITUS per A.D.A. criteria. Neutrophils (Bld) [#/Vol] 18.0 10*3/uL 2.0-7.7 [facility] Work Phone: Neutrophils/100 WBC (Bld) 80.1 % 47-70 [facility] Work Phone: [phone] Potassium [Moles/Vol] 3.8 mmol/L 3.5-5.[address] [facility] Work Phone: [phone] Sodium [Moles/Vol] 130 mmol/L 136-145 [facility] Work Phone: WBC (Bld) [#/Vol] 22.4 10*3/uL 4.4-11.0 [facility] Work Phone: Beta hCG serum qualon 2021 Beta HCG ( test) Ql Negative [facility] Work Phone: Blood erythrocytes count (nu mber/volume)on 04-06-2022 RBC (Bld) [#/Vol] 4.48 10*6/uL 4.2-5.4 [facility] Work Phone: Blood hemoglobin measurement (mass/volume)on 04-06-2022 Hemoglobin (Bld) [Mass/Vol] 12.0 g/dL 12.0-15.0 [facility] Work Phone: [phone] Blood lymphocytes/100 leukoc yteson 04-06-2022 Lymphocytes/100 WBC (Bld) 11.4 % 19-41 [facility] Work Phone: Blood monocytes/100 leukocyt eson 04-06-2022 Monocytes/100 WBC (Bld) 7.1 % 0-10 [facility] Work Phone: Blood platelet mean volumeon 04-06-2022 Platelet mean volume (Bld) [Entitic vol] 9.5 fL 6.2-12.0 [facility] Work Phone: [phone] Determination of erythrocyte mean corpuscular volume (MCV)on 04-06-2022 MCV (RBC) [Entitic vol] 82.1 fL 81-99 [facility] Work Phone: [phone] Erythrocyte sedimentation ra abeba 04-06-2022 ESR (Bld) [Velocity] 118 mm/h 0-30 [facility] Work Phone: [phone] Hematocrit Auto (Bld) [Volum e fraction]on 04-06-2022 Hematocrit (Bld) [Volume fraction] 36.8 % 37-47 [facility] Work Phone: [phone] Laboratory - Chemistry and C hemistry - challengeon 04-06-2022 CO2 [Moles/Vol] 25.0 mmol/L 21.0-32.0 [facility] Work Phone: [phone] Urea nitrogen/Creatinine [Mass ratio] 5.9 mg/mg 10-20 [facility] Work Phone: [phone] Laboratory - Hematology and Cell countson 04-06-2022 Erythrocyte distribution width (RBC) [Entitic vol] 39.4 fL 35.1-43.9 [facility] Work Phone: [phone] Erythrocyte distribution width (RBC) [Ratio] 13.2 % 11.6-14.6 [facility] Work Phone: [phone] Immature granulocytes/100 WBC (Bld) 1.200 % 0.0-0.9 [facility] Work Phone: [phone] Comment on above: IG% - Immature Granu locytes (promyelocytes, myelocytes and metamyelocytes) > 1% indicates that a LEFT SHIFT is Present. MCH (RBC) [Entitic mass] 26.8 pg 27.0-32.0 [facility] Work Phone: [phone] Nucleated RBC/100 WBC (Bld) [Ratio] 0 % 0-5 [facility] Work Phone: [phone] MCHC Auto (RBC) [Mass/Vol]on 04-06-2022 MCHC (RBC) [Mass/Vol] 32.6 g/dL 32-36 [facility] Work Phone: [phone] Panel Informationon 04-06 Estimated Creatinine Clearance Calc 76.25 ml/min [facility] Work Phone: [phone] Estimated GFR (MDRD) Amer 83 mL/min >60 [facility] Work Phone: [phone] Comment on above: GFR Calc Estimated GFR (MDRD) Non-Af Amer 68 mL/min >60 [facility] Work Phone: [phone] Comment on above: Non- GFR Calc Platelets bldon 04-06-2022 Platelets (Bld) [#/Vol] 495 10*3/uL 150-450 [facility] Work Phone: [phone] Review by pathologiston 03-13 Pathologist review Franky (Unsp spec) [Interp] Zahraa waite [facility] Work Phone: [phone] Pathologist review Franky (Unsp spec) [Interp] Reviewed [facility] Work Phone: [phone] Comment on above: Previous reported re sult: Zahraa waite Edited by: RGOHEIDI on 04/07/22:1303Neutrophilic leukocytosis with left shift. Thrombocytosis.Clinical correlation necessary.Patrick Castellon M.D. 04/07/22 AMENDED REPORT 04/07/22 1303 PATH REV previously reported as: Zahraa waite Serum or plasma C reactive p rotein measurement (mass/volume)on 04-06-2022 CRP [Mass/Vol] 321.00 mg/L 0.0-3.0 [facility] Work Phone: Comment on above: C-Reactive Protein ( CRP) provides useful information for thediagnosis, therapy and monitoring of inflammatory processesand associated diseases. For the evaluation of Relative Riskfor Cardiovascular Disease, a High Sensitivity CRP (HSCRP)should be ordered. Serum or plasma acetone hussein urement (mass/volume)on 04-06-2022 Acetone [Mass/Vol] Negative NEG [facility] Work Phone: [phone] Serum or plasma calcium hussein urement (mass/volume)on 04-06-2022 Calcium [Mass/Vol] 9.7 mg/dL 8.5-10.1 [facility] Work Phone: [phone] Serum or plasma creatinine m easurement (mass/volume)on 04-06-2022 Creatinine [Mass/Vol] 1.01 mg/dL 0.55-1.[address] [facility] Work Phone: Comment on above: The validity of the calculated GFR & GFRAA in patients over 70 years has not been determined. Clinical correlation is essential. Serum or plasma urea nitroge n measurement (mass/volume)on 04-06-2022 Urea nitrogen [Mass/Vol] 6 mg/dL 7-18 [facility] Work Phone: Thin prep Papanicolaou smear with manual screeningon 04-06-2022 Thin prep Papanicolaou smear with manual screening 11 5-15 [facility] Work Phone: Whole blood hemoglobin A1c/t otal hemoglobin ratio (mass fraction)on 04-06-2022 HbA1c (Bld) [Mass fraction] 10.0 % 3.8-5.6 [facility] Work Phone: Comment on above: Normal < 5.7 % Predi abetic 5.7 - 6.4 % Diabetic >or= 6.5 % Please note range changes. Absolute lymphocyte counton 04-05-2022 Lymphocytes Auto (Unsp spec) [#/Vol] 2.49 10*3/uL 0.83-4.51 [facility] Work Phone: Basophil percentageon 2021 Basophils/100 WBC (Bld) 0.2 % 0-1 [facility] Work Phone: Chloride [Moles/Vol] 93 mmol/L 98-107 [facility] Work Phone: Eosinophils/100 WBC (Bld) 0.2 % 0-5 [facility] Work Phone: Glucose [Mass/Vol] 389 mg/dL 74-106 [facility] Work Phone: Comment on above: Glucose result great er than or equal to 200 mg/dLsuggests DIABETES MELLITUS per A.D.A. criteria. Lactate [Moles/Vol] 2.5 mmol/L 0.4-2.[address] [facility] [facility] [facility] Work [facility]: Comment on above: Critical Result(s) C alled at: 13:33:37 04/05/2022 by: Gayathri Torres. Results read back by same. Neutrophils (Bld) [#/Vol] 13.7 10*3/uL 2.0-7.7 [facility] Work Phone: [phone] Neutrophils/100 WBC (Bld) 78.3 % 47-70 [facility] Work Phone: [phone] Potassium [Moles/Vol] 4.0 mmol/L 3.5-5.1 [facility] Work Phone: [phone] Sodium [Moles/Vol] 132 mmol/L 136-145 [facility]: [phone] WBC (Bld) [#/Vol] 17.5 10*3/uL 4.4-11.[address] [facility] Work Phone: [phone] Blood erythrocytes count (nu mber/volume)on 04-05-2022 RBC (Bld) [#/Vol] 4.50 10*6/uL 4.2-5.[address] [facility] Work Phone: Blood hemoglobin measurement (mass/volume)on 04-05-2022 Hemoglobin (Bld) [Mass/Vol] 12.7 g/dL 12.0-15.0 [facility] Work Phone: [phone] Blood lymphocytes/100 leukoc yteson 04-05-2022 Lymphocytes/100 WBC (Bld) 14.2 % 19-41 [facility] Work Phone: [phone] Blood monocytes/100 leukocyt eson 04-05-2022 Monocytes/100 WBC (Bld) 6.3 % 0-10 [facility] Work Phone: [phone] Blood platelet mean volumeon 04-05-2022 Platelet mean volume (Bld) [Entitic vol] 9.7 fL 6.2-12.0 [facility] Work Phone: Determination of erythrocyte mean corpuscular volume (MCV)on 09-25-2022 MCV (RBC) [Entitic vol] 82.2 fL 81-99 [facility] Work Phone: [phone] Hematocrit Auto (Bld) [Volum e fraction]on 04-05-2022 Hematocrit (Bld) [Volume fraction] 37.0 % 37-47 [facility] Work Phone: [phone] Laboratory - Chemistry and C hemistry - challengeon 04-05-2022 CO2 [Moles/Vol] 28.0 mmol/L 21.0-32.0 [facility] Work Phone: [phone] Urea nitrogen/Creatinine [Mass ratio] 8.5 mg/mg 10-20 [facility] Work Phone: [phone] Laboratory - Hematology and Cell countson 04-05-2022 Erythrocyte distribution width (RBC) [Entitic vol] 40.1 fL 35.1-43.9 [facility] Work Phone: [phone] Erythrocyte distribution width (RBC) [Ratio] 13.5 % 11.6-14.6 [facility] Work Phone: [phone] Immature granulocytes/100 WBC (Bld) 0.800 % 0.0-0.9 [facility] Work Phone: [phone] Comment on above: IG% - Immature Granu locytes (promyelocytes, myelocytes and metamyelocytes) > 1% indicates that a LEFT SHIFT is Present. MCH (RBC) [Entitic mass] 28.2 pg 27.0-32.0 [facility] Work Phone: [phone] Nucleated RBC/100 WBC (Bld) [Ratio] 0 % 0-5 [facility] Work Phone: [phone] MCHC Auto (RBC) [Mass/Vol]on 04-05-2022 MCHC (RBC) [Mass/Vol] 34.3 g/dL 32-[address] [facility] Work Phone: [phone] Panel Informationon 04-05 Estimated Creatinine Clearance Calc 92.78 ml/min [facility] Work Phone: [phone] Estimated GFR (MDRD) Amer 104 mL/min >60 [facility] Work Phone: Comment on above: GFR Calc Estimated GFR (MDRD) Non-Af Amer 86 mL/min >60 [facility] Work Phone: Comment on above: Non- GFR Calc Platelets bldon 04-05-2022 Platelets (Bld) [#/Vol] 444 10*3/uL 150-450 [facility] Work Phone: Serum or plasma calcium hussein urement (mass/volume)on 04-05-2022 Calcium [Mass/Vol] 9.2 mg/dL 8.5-10.1 [facility] Work Phone: Serum or plasma creatinine m easurement (mass/volume)on 04-05-2022 Creatinine [Mass/Vol] 0.83 mg/dL 0.55-1.02 [facility] Work Phone: Comment on above: The validity of the calculated GFR & GFRAA in patients over 70 years has not been determined. Clinical correlation is essential. Serum or plasma urea nitroge n measurement (mass/volume)on 04-05-2022 Urea nitrogen [Mass/Vol] 7 mg/dL 7-18 [facility] Work Phone: Thin prep Papanicolaou smear with manual screeningon 04-05-2022 Thin prep Papanicolaou smear with manual screening 11 5-15 [facility] Work Phone: XR CHEST 2V FRONTAL/LATon [facility] XR Chest PA and Lateralon IMPRESSION: Within normal limits. No acute radiographic abnormality. Family Development Extension Specialist: OLGA Transcribe Date/Time: Mar 23 2022 1:11P Dictated by : CINDY OBRIEN MD This examination was interpreted and the report reviewed and electronically signed by: CINDY OBRIEN MD on Mar 23 2022 1:14PM [facility] DIVISION OF RADIOLOGY * * *Final [...] soft tissues: Unremarkable. DIVISION OF RADIOLOGY Provider, [facility] - 03/23/2022 * * *Final Report* * [...] Within normal limits. No acute radiographic abnormality. Family Development Extension Specialist: OLGA Transcribe Date/Time: Mar 23 2022 1:11P Dictated by : CINDY OBRIEN MD This examination was interpreted and the report reviewed and electronically signed by: CINDY OBRIEN MD on Mar 23 2022 1:14PM [facility] Radiology Study observation (narrative) Melissa gupta [facility] XR Chest PA and LateralOrder ed By: Cc Provider on 03-23-2022 [facility] Absolute lymphocyte counton 02-01-2022 Lymphocytes Auto (Unsp spec) [#/Vol] 3.62 10*3/uL 0.83-4.51 [facility] Work Phone: Basophil percentageon 2021 Basophil percentage 0-5 SEEN /hpf 0-5 [facility] Work Phone: Basophils/100 WBC (Bld) 0.3 % 0-1 [facility] Work Phone: Bilirubin [Mass/Vol] 0.40 mg/dL 0.20-1.00 [facility] Work Phone: Comment on above: For patients on eltr ombopag therapy, use of Dimension [place] TBIL is not recommended. Chloride [Moles/Vol] 98 mmol/L 98-107 [facility] Work Phone: [phone] Eosinophils/100 WBC (Bld) 0.5 % 0-5 [facility] Work Phone: [phone] Glucose [Mass/Vol] 334 mg/dL 74-106 [facility] Work Phone: [phone] Comment on above: Glucose result great er than or equal to 200 mg/dLsuggests DIABETES MELLITUS per A.D.A. criteria. Lactate [Moles/Vol] 2.5 mmol/L 0.4-2.0 [facility] Work Phone: Comment on above: Critical Result(s) C alled at: 13:53:33 02/01/2022 by: Gayathri Whiting to [place]. Results read back by same. Neutrophils (Bld) [#/Vol] 5.5 10*3/uL 2.0-7.7 [facility] Work Phone: Neutrophils/100 WBC (Bld) 54.6 % 47-70 [facility] Work Phone: Potassium [Moles/Vol] 3.2 mmol/L 3.5-5.1 [facility] Work Phone: [phone] Protein [Mass/Vol] 7.2 g/dL 6.4-8.2 [facility] Work Phone: [phone] Sodium [Moles/Vol] 131 mmol/L 136-145 [facility] Work Phone: [phone] WBC (Bld) [#/Vol] 10.1 10*3/uL 4.4-11.0 [facility] Work Phone: Beta hCG serum qualon 2021 Beta HCG ( test) Ql Negative [facility] Work Phone: Bilirubin Test strip Ql (U)o n 02-01-2022 Bilirubin Ql (U) Negative Negative [facility] Work Phone: Blood erythrocytes count (nu mber/volume)on 02-01-2022 RBC (Bld) [#/Vol] 4.45 10*6/uL 4.2-5.4 [facility] Work Phone: Blood hemoglobin measurement (mass/volume)on 02-01-2022 Hemoglobin (Bld) [Mass/Vol] 11.7 g/dL 12.0-15.0 [facility] Work Phone: Blood lymphocytes/100 leukoc yteson 02-01-2022 Lymphocytes/100 WBC (Bld) 35.9 % 19-41 [facility] Work Phone: Blood monocytes/100 leukocyt eson 02-01-2022 Monocytes/100 WBC (Bld) 7.8 % 0-10 [facility] Work Phone: Blood platelet mean volumeon 02-01-2022 Platelet mean volume (Bld) [Entitic vol] 9.7 fL 6.2-12.0 [facility] Work Phone: Determination of erythrocyte mean corpuscular volume (MCV)on 02-01-2022 MCV (RBC) [Entitic vol] 80.2 fL 81-99 [facility] Work Phone: Hematocrit Auto (Bld) [Volum e fraction]on 02-01-2022 Hematocrit (Bld) [Volume fraction] 35.7 % 37-47 [facility] Work Phone: Ketones Test strip Ql (U)on 02-01-2022 Ketones Ql (U) Negative Negative [facility] Work Phone: Laboratory - Chemistry and C hemistry - challengeon 02-01-2022 ALP [Catalytic activity/Vol] 79 U/L 45-117 [facility] Work Phone: ALT [Catalytic activity/Vol] 12 U/L 13-56 [facility] Work Phone: [phone] CO2 [Moles/Vol] 24.0 mmol/L 21.0-32.0 [facility] Work Phone: [phone] Globulin (S) [Mass/Vol] 4.5 g/dL 2.2-4.2 [facility] Work Phone: [phone] Lipase [Catalytic activity/Vol] 154 U/L 73-393 [facility] Work Phone: [phone] Urea nitrogen/Creatinine [Mass ratio] 6.9 mg/mg 10-20 [facility] Work Phone: [phone] Laboratory - Hematology and Cell countson 02-01-2022 Erythrocyte distribution width (RBC) [Entitic vol] 39.5 fL 35.1-43.9 [facility] Work Phone: [phone] Erythrocyte distribution width (RBC) [Ratio] 13.7 % 11.6-14.6 [facility] Work Phone: [phone] Immature granulocytes/100 WBC (Bld) 0.900 % 0.0-0.9 [facility] Work Phone: [phone] Comment on above: IG% - Immature Granu locytes (promyelocytes, myelocytes and metamyelocytes) > 1% indicates that a LEFT SHIFT is Present. MCH (RBC) [Entitic mass] 26.3 pg 27.0-32.0 [facility] Work Phone: Nucleated RBC/100 WBC (Bld) [Ratio] 0 % 0-5 [facility] Work Phone: [phone] MCHC Auto (RBC) [Mass/Vol]on 02-01-2022 MCHC (RBC) [Mass/Vol] 32.8 g/dL 32-36 [facility] Work Phone: [phone] Mucus LM Ql (Urine sed)on Mucus Ql (Urine sed) 0 SEEN /hpf [facility] Work Phone: [phone] Nitrite Test strip Ql (U)on 02-01-2022 Nitrite Ql (U) Negative Negative [facility] Work Phone: [phone] Panel Informationon 02-01 Estimated Creatinine Clearance Calc 75.50 ml/min [facility] Work Phone: Estimated GFR (MDRD) Amer 82 mL/min >60 [facility] Work Phone: Comment on above: GFR Calc Estimated GFR (MDRD) Non-Af Amer 68 mL/min >60 [facility] Work Phone: Comment on above: Non- GFR Calc Platelets bldon 02-01-2022 Platelets (Bld) [#/Vol] 368 10*3/uL 150-450 [facility] Work Phone: Protein Test strip Ql (U)on 02-01-2022 Protein Ql (U) 15 mg/dl Negative [facility] Work Phone: Serum or plasma albumin hussein urement (mass/volume)on 02-01-2022 Albumin [Mass/Vol] 2.7 g/dL 3.2-5.0 [facility] Work Phone: [phone] Serum or plasma albumin/glob ulin mass ratioon 02-01-2022 Albumin/Globulin [Mass ratio] 0.6 {ratio} 0.9-2.4 [facility] Work Phone: [phone] Serum or plasma calcium hussein urement (mass/volume)on 02-01-2022 Calcium [Mass/Vol] 8.7 mg/dL 8.5-10.1 [facility] Work Phone: [phone] Serum or plasma creatinine m easurement (mass/volume)on 02-01-2022 Creatinine [Mass/Vol] 1.02 mg/dL 0.55-1.02 [facility] Work Phone: Comment on above: The validity of the calculated GFR & GFRAA in patients over 70 years has not been determined. Clinical correlation is essential. Serum or plasma urea nitroge n measurement (mass/volume)on 02-01-2022 Urea nitrogen [Mass/Vol] 7 mg/dL 7-18 [facility] Work Phone: [phone] Squamous epithelial cells de tection in urine sediment by light microscopyon 02-01-2022 Epithelial cells.squamous LM Ql (Urine sed) 0-5 SEEN /hpf 5-10 [facility] Work Phone: Thin prep Papanicolaou smear with manual screeningon 02-01-2022 Thin prep Papanicolaou smear with manual screening 8 U/L 15-37 [facility] Work Phone: Thin prep Papanicolaou smear with manual screening 9 5-15 [facility] Work Phone: Urine blood detectionon 01-10 RBC Ql (U) 50 /ul Negative [facility] Work Phone: RBC Ql (U) 0-5 SEEN /hpf 0-5 [facility] Work Phone: Urine clarityon 02-01-2022 Clarity (U) Clear Clear [facility] Work Phone: Urine color determinationon 02-01-2022 Color (U) Yellow Yellow [facility] Work Phone: Urine glucose detectionon Glucose Ql (U) 1000 mg/dl Normal [facility] Work Phone: Urine leukocyte esterase det ection by dipstickon 02-01-2022 Leukocyte esterase Test strip Ql (U) 25 /ul Negative [facility] Work Phone: Urine pHon 02-01-2022 pH (U) 5.0 [pH] 5.0 - 8.0 [facility] Work Phone: Urine sediment bacteria coun t by microscopy (number/high power field)on 02-01-2022 Bacteria LM.HPF (Urine sed) [#/Area] 0 /[HPF] None Seen [facility] Work Phone: Urine specific gravity measu rementon 02-01-2022 Specific gravity (U) [Rel density] 1.020 1.002-1.030 [facility] Work Phone: Urobilinogen Auto test strip Ql (U)on 02-01-2022 Urobilinogen Ql (U) Normal mg/dl Normal [facility] Work Phone: [phone] Absolute lymphocyte counton 01-30-2022 Lymphocytes Auto (Unsp spec) [#/Vol] 5.16 10*3/uL 0.83-4.51 [facility] Work Phone: [phone] Albumin Elph [Mass/Vol]on Albumin [Mass/Vol] 3.6 g/dL 2.9-4.4 [facility]: [phone] Atypical perinuclear antineu trophil cytoplasmic antibodies measurementon 01-30-2022 Neutrophil cytoplasmic Ab.perinuclear.atypical IF (S) [Titer] <1:20 titer Neg:<1:20 [facility] Work Phone: [phone] Comment on above: The atypical pANCA p attern has been observed in asignificant percentage of patients with ulcerative colitis,primary sclerosing cholangitis and autoimmune hepatitis.Performed at: [facility] [address] [id number] Director: Wade Lazo PhD, Phone: [phone] at: [facility] [address] [id number] Director: Philip Robles MD, Phone: [phone] Basophil percentageon 2021 Amylase [Catalytic activity/Vol] 19 U/L 25-115 [facility] Work Phone: [phone] Basophil percentage < 0.2 AI 0.0-0.[address] [facility] [facility] Work [facility]: [phone] Basophils/100 WBC (Bld) 0.3 % 0-1 [facility] Work Phone: [phone] Eosinophils/100 WBC (Bld) 0.5 % 0-5 [facility] Work Phone: [phone] Neutrophils (Bld) [#/Vol] 8.8 10*3/uL 2.0-7.7 [facility] Work Phone: Neutrophils/100 WBC (Bld) 57.5 % 47-70 [facility] Work Phone: [phone] WBC (Bld) [#/Vol] 15.3 10*3/uL 4.4-11.0 [facility] Work Phone: Blood erythrocytes count (nu mber/volume)on 01-30-2022 RBC (Bld) [#/Vol] 5.33 10*6/uL 4.2-5.4 [facility] Work Phone: Blood hemoglobin measurement (mass/volume)on 01-30-2022 Hemoglobin (Bld) [Mass/Vol] 13.9 g/dL 12.0-15.0 [facility] Work Phone: Blood lymphocytes/100 leukoc yteson 01-30-2022 Lymphocytes/100 WBC (Bld) 33.7 % 19-41 [facility] Work Phone: Blood manual differential co mment interpretation (narrative result)on 01-30-2022 Manual differential comment Franky (Bld) [Interp] SCANNED [facility] Work Phone: Comment on above: LYMPHOCYTOSIS NOTED Blood monocytes/100 leukocyt eson 01-30-2022 Monocytes/100 WBC (Bld) 7.2 % 0-10 [facility] Work Phone: Blood platelet mean volumeon 01-30-2022 Platelet mean volume (Bld) [Entitic vol] 9.5 fL 6.2-12.0 [facility] Work Phone: Determination of erythrocyte mean corpuscular volume (MCV)on 01-30-2022 MCV (RBC) [Entitic vol] 80.3 fL 81-99 [facility] Work Phone: Erythrocyte sedimentation ra abeba 01-30-2022 ESR (Bld) [Velocity] 81 mm/h 0-30 [facility]: Hematocrit Auto (Bld) [Volum e fraction]on 01-30-2022 Hematocrit (Bld) [Volume fraction] 42.8 % 37-47 [facility] Work Phone: Interpretation of serum or p lasma protein pattern by immunofixation (narrative resulton 01-30-2022 Protein Fractions Immunofixation Franky [Interp] See comment [facility] Work Phone: [phone] Comment on above: NOT OBSERVED Laboratory - Chemistry and C hemistry - challengeon 01-30-2022 Cobalamin (Vitamin B12) [Mass/Vol] 318 pg/mL 211-911 [facility] Work Phone: [phone] Lipase [Catalytic activity/Vol] 150 U/L 73-393 [facility] Work Phone: [phone] Laboratory - Hematology and Cell countson 01-30-2022 Erythrocyte distribution width (RBC) [Entitic vol] 40.0 fL 35.1-43.9 [facility] Work Phone: [phone] Erythrocyte distribution width (RBC) [Ratio] 14.0 % 11.6-14.6 [facility] Work Phone: [phone] Immature granulocytes/100 WBC (Bld) 0.800 % 0.0-0.9 [facility] Work Phone: [phone] Comment on above: IG% - Immature Granu locytes (promyelocytes, myelocytes and metamyelocytes) > 1% indicates that a LEFT SHIFT is Present. MCH (RBC) [Entitic mass] 26.1 pg 27.0-32.0 [facility] Work Phone: [phone] Nucleated RBC/100 WBC (Bld) [Ratio] 0 % 0-5 [facility] Work Phone: [phone] MCHC Auto (RBC) [Mass/Vol]on 01-30-2022 MCHC (RBC) [Mass/Vol] 32.5 g/dL 32-36 [facility] Work Phone: [phone] Panel Informationon 01-30 Addendum Document Comment . [facility] Work Phone: [phone] Comment on above: Protein electrophore sis scan will follow via computer,mail, or guitar teacher delivery. Centromere B Antibody <0.2 AI 0.0-0.9 [facility] Work Phone: [phone] Endomysial IgA Antibody Negative Negative [facility] Work Phone: [phone] Immunoglobulin E 119 IU/mL 6-495 [facility] Work Phone: [employer] Antibody <0.2 AI 0.0-0.9 [facility] Work Phone: [phone] Thyroid Stimulating Hormone (TSH) 2.21 uIU/mL 0.358-3.74 [facility] Work Phone: Platelets bldon 01-30-2022 Platelets (Bld) [#/Vol] 484 10*3/uL 150-450 [facility] Work Phone: Serum DNA double strand anti body assay (units/volume)on 01-30-2022 DNA double strand Ab Qn (S) [IU]/mL 0-9 [facility] Work Phone: [phone] Comment on above: Negative <5 Equivoca l 5 - 9 Positive >9 Serum Neva-1 antibody assay (u nits/volume)on 01-30-2022 Neva-1 extractable nuclear Ab Qn (S) <0.2 AI 0.0-0.9 [facility] Work Phone: [phone] Serum Scl-70 extractable nuc lear antibody assay (units/volume)on 01-30-2022 SCL-70 extractable nuclear Ab Qn (S) <0.2 AI 0.0-0.9 [facility] Work Phone: [phone] Jang extractable nucl ear antibody detectionon 01-30-2022 Jang extractable nuclear Ab Ql (S) <0.2 AI 0.0-0.9 [facility] Work Phone: [phone] Serum entta-8-pgckrurd measu rement by electrophoresison 01-30-2022 Alpha 1 globulin Elph [Mass/Vol] 0.2 g/dL 0.0-0.4 [facility] Work Phone: [phone] Alpha 1 globulin Elph [Mass/Vol] 1.6 g/dL 0.4-1.0 [facility] Work Phone: [phone] Serum classic neutrophil cyt oplasmic antibody assay (units/volume)on 01-30-2022 Neutrophil cytoplasmic Ab.classic Qn (S) 1:80 titer Neg:<1:20 [facility] Work Phone: Serum globulin measurement ( mass/volume)on 01-30-2022 Globulin (S) [Mass/Vol] 4.8 g/dL 2.2-3.9 [facility] Work Phone: Serum or plasma C reactive p rotein measurement (mass/volume)on 01-30-2022 CRP [Mass/Vol] 53.10 mg/L 0.0-3.0 [facility] Work Phone: Comment on above: C-Reactive Protein ( CRP) provides useful information for thediagnosis, therapy and monitoring of inflammatory processesand associated diseases. For the evaluation of Relative Riskfor Cardiovascular Disease, a High Sensitivity CRP (HSCRP)should be ordered. Serum or plasma IgA measurem ent (mass/volume)on 01-30-2022 IgA [Mass/Vol] 478 mg/dL 87-352 [facility] Work Phone: Serum or plasma IgG measurem ent (mass/volume)on 01-30-2022 IgG [Mass/Vol] 1630 mg/dL [phone] [facility] Work Phone: Serum or plasma IgM measurem ent (mass/volume)on 01-30-2022 IgM [Mass/Vol] 294 mg/dL 26-217 [facility] Work Phone: Serum or plasma beta globuli n measurement by electrophoresis (mass/volume)on 01-30-2022 Beta globulin Elph [Mass/Vol] 1.0 g/dL 0.7-1.3 [facility] Work Phone: Serum or plasma folate measu rement (mass/volume)on 01-30-2022 Folate [Mass/Vol] 13.50 ng/mL 3.1-55.4 [facility] Work Phone: Serum or plasma gamma globul in measurement by electrophoresis (mass/volume)on 01-30-2022 Gamma globulin Elph [Mass/Vol] 1.9 g/dL 0.4-1.8 [facility] Work Phone: Serum or plasma immunoelectr ophoresis interpretation (nominal result)on 01-30-2022 Interpretation IEP [Interp] Comment . [facility] Work Phone: Comment on above: No monoclonality det ected. Serum perinuclear neutrophil cytoplasmic antibody titer by immunofluorescenceon 01-30-2022 Neutrophil cytoplasmic Ab.perinuclear IF (S) [Titer] <1:20 titer Neg:<1:20 [facility] Work Phone: Comment on above: The presence of posi tive fluorescence exhibiting P-ANCA orC-ANCA patterns alone is not specific for the diagnosis ofWegener's Granulomatosis (WG) or microscopic polyangiitis.Decisions about treatment should not be based solely onANCA IFA results. The [employer] Consensusrecommends follow up testing of positive sera with both KS-3 and MPO-ANCA enzyme immunoassays. As many as 5% serumsamples are positive only by EIA. Ref. AM J Clin Udgbcy3461;111:507-513. Serum tissue transglutaminas e IgA antibody assay (units/volume)on 01-30-2022 tTG IgA Qn (S) <2 U/mL 0-3 [facility] Work Phone: Comment on above: Negative 0 - 3 Weak Positive 4 - 10 Positive >10 Tissue Transglutaminase (tTG) has been identified as the endomysial antigen. Studies have demonstr- ated that endomysial IgA antibodies have over 99% specificity for gluten sensitive enteropathy. Thin prep Papanicolaou smear with manual screeningon 01-30-2022 Thin prep Papanicolaou smear with manual screening 153 U/L 84-246 [facility] Work Phone: [phone] Thin prep Papanicolaou smear with manual screening 0.8 0.7-1.7 [facility] Work Phone: [phone] Total protein bloodon 2021 Protein [Mass/Vol] 8.4 g/dL 6.0-8.5 [facility] Work Phone: [phone] Whole blood hemoglobin A1c/t otal hemoglobin ratio (mass fraction)on 01-30-2022 HbA1c (Bld) [Mass fraction] 11.4 % 3.8-5.6 [facility] Work Phone: Comment on above: Normal < 5.7 % Predi abetic 5.7 - 6.4 % Diabetic >or= 6.5 % Please note range changes. Absolute lymphocyte counton 01-26-2022 Lymphocytes Auto (Unsp spec) [#/Vol] 4.70 10*3/uL 0.83-4.51 [facility] Work Phone: Basophil percentageon 2021 Basophils/100 WBC (Bld) 0.4 % 0-1 [facility] Work Phone: Bilirubin [Mass/Vol] 0.40 mg/dL 0.20-1.00 [facility] Work Phone: Comment on above: For patients on eltr ombopag therapy, use of Dimension [place] TBIL is not recommended. Chloride [Moles/Vol] 101 mmol/L 98-107 [facility] Work Phone: Eosinophils/100 WBC (Bld) 0.2 % 0-5 [facility] Work Phone: Glucose [Mass/Vol] 320 mg/dL 74-106 [facility] Work Phone: Comment on above: Glucose result great er than or equal to 200 mg/dLsuggests DIABETES MELLITUS per A.D.A. criteria. Neutrophils (Bld) [#/Vol] 5.6 10*3/uL 2.0-7.7 [facility] Work Phone: Neutrophils/100 WBC (Bld) 50.6 % 47-70 [facility] Work Phone: Potassium [Moles/Vol] 3.6 mmol/L 3.5-5.1 [facility] Work Phone: Protein [Mass/Vol] 8.5 g/dL 6.4-8.2 [facility] Work Phone: Sodium [Moles/Vol] 136 mmol/L 136-145 [facility] Work Phone: [phone] WBC (Bld) [#/Vol] 11.1 10*3/uL 4.4-11.0 [facility] Work Phone: Blood erythrocytes count (nu mber/volume)on 01-26-2022 RBC (Bld) [#/Vol] 4.99 10*6/uL 4.2-5.4 [facility] Work Phone: Blood hemoglobin measurement (mass/volume)on 01-26-2022 Hemoglobin (Bld) [Mass/Vol] 12.9 g/dL 12.0-15.0 [facility] Work Phone: [phone] Blood lymphocytes/100 leukoc yteson 01-26-2022 Lymphocytes/100 WBC (Bld) 42.2 % 19-41 [facility] Work Phone: [phone] Blood monocytes/100 leukocyt eson 01-26-2022 Monocytes/100 WBC (Bld) 5.9 % 0-10 [facility] Work Phone: [phone] Blood platelet mean volumeon 01-26-2022 Platelet mean volume (Bld) [Entitic vol] 9.5 fL 6.2-12.0 [facility] Work Phone: Determination of erythrocyte mean corpuscular volume (MCV)on 01-26-2022 MCV (RBC) [Entitic vol] 77.8 fL 81-99 [facility] Work Phone: Hematocrit Auto (Bld) [Volum e fraction]on 01-26-2022 Hematocrit (Bld) [Volume fraction] 38.8 % 37-47 [facility] Work Phone: [phone] Laboratory - Chemistry and C hemistry - challengeon 01-26-2022 ALP [Catalytic activity/Vol] 85 U/L 45-117 [facility] Work Phone: [phone] ALT [Catalytic activity/Vol] 14 U/L 13-56 [facility] Work Phone: [phone] CO2 [Moles/Vol] 26.0 mmol/L 21.0-32.0 [facility] Work Phone: Globulin (S) [Mass/Vol] 5.3 g/dL 2.2-4.2 [facility] Work Phone: [phone] Lipase [Catalytic activity/Vol] 179 U/L 73-393 [facility] Work Phone: [phone] Urea nitrogen/Creatinine [Mass ratio] 13.1 mg/mg 10-20 [facility] Work Phone: [phone] Laboratory - Hematology and Cell countson 01-26-2022 Erythrocyte distribution width (RBC) [Entitic vol] 37.9 fL 35.1-43.9 [facility] Work Phone: [phone] Erythrocyte distribution width (RBC) [Ratio] 13.8 % 11.6-14.6 [facility] Work Phone: [phone] Immature granulocytes/100 WBC (Bld) 0.700 % 0.0-0.9 [facility] Work Phone: [phone] Comment on above: IG% - Immature Granu locytes (promyelocytes, myelocytes and metamyelocytes) > 1% indicates that a LEFT SHIFT is Present. MCH (RBC) [Entitic mass] 25.9 pg 27.0-32.0 [facility] Work Phone: [phone] Nucleated RBC/100 WBC (Bld) [Ratio] 0 % 0-5 [facility] Work Phone: [phone] MCHC Auto (RBC) [Mass/Vol]on 01-26-2022 MCHC (RBC) [Mass/Vol] 33.2 g/dL 32-[address] [facility] Work Phone: [phone] Panel Informationon 01-26 Estimated Creatinine Clearance Calc 84.46 ml/min [facility] Work Phone: [phone] Estimated GFR (MDRD) Amer 92 mL/min >60 [facility] Work Phone: [phone] Comment on above: GFR Calc Estimated GFR (MDRD) Non-Af Amer 76 mL/min >60 [facility] Work Phone: [phone] Comment on above: Non- GFR Calc Platelets bldon 01-26-2022 Platelets (Bld) [#/Vol] 474 10*3/uL 150-450 [facility] Work Phone: Serum or plasma albumin hussein urement (mass/volume)on 01-26-2022 Albumin [Mass/Vol] 3.2 g/dL 3.2-5.0 [facility] Work Phone: [phone] Serum or plasma albumin/glob ulin mass ratioon 01-26-2022 Albumin/Globulin [Mass ratio] 0.6 {ratio} 0.9-2.4 [facility] Work Phone: [phone] Serum or plasma calcium hussein urement (mass/volume)on 01-26-2022 Calcium [Mass/Vol] 9.3 mg/dL 8.5-10.1 [facility] Work Phone: Serum or plasma creatinine m easurement (mass/volume)on 01-26-2022 Creatinine [Mass/Vol] 0.92 mg/dL 0.55-1.02 [facility] Work Phone: Comment on above: The validity of the calculated GFR & GFRAA in patients over 70 years has not been determined. Clinical correlation is essential. Serum or plasma urea nitroge n measurement (mass/volume)on 01-26-2022 Urea nitrogen [Mass/Vol] 12 mg/dL 7-18 [facility] Work Phone: Thin prep Papanicolaou smear with manual screeningon 01-26-2022 Thin prep Papanicolaou smear with manual screening 7 U/L 15-37 [facility] Work Phone: [phone] Thin prep Papanicolaou smear with manual screening 9 5-15 [facility] Work Phone: Absolute lymphocyte counton 01-23-2022 Lymphocytes Auto (Unsp spec) [#/Vol] 3.74 10*3/uL 0.83-4.51 [facility] Work Phone: Basophil percentageon 2021 Basophils/100 WBC (Bld) 0.4 % 0-1 [facility] Work Phone: [phone] Chloride [Moles/Vol] 97 mmol/L 98-107 [facility] Work Phone: Eosinophils/100 WBC (Bld) 0.4 % 0-5 [facility] Work Phone: Glucose [Mass/Vol] 362 mg/dL 74-106 [facility] Work Phone: Comment on above: Glucose result great er than or equal to 200 mg/dLsuggests DIABETES MELLITUS per A.D.A. criteria. Neutrophils (Bld) [#/Vol] 5.3 10*3/uL 2.0-7.7 [facility] Work Phone: Neutrophils/100 WBC (Bld) 53.8 % 47-70 [facility] Work Phone: Potassium [Moles/Vol] 4.0 mmol/L 3.5-5.1 [facility] Work Phone: Sodium [Moles/Vol] 131 mmol/L 136-145 [facility] Work Phone: WBC (Bld) [#/Vol] 9.8 10*3/uL 4.4-11.0 [facility] Work Phone: Blood erythrocytes count (nu mber/volume)on 01-23-2022 RBC (Bld) [#/Vol] 5.18 10*6/uL 4.2-5.4 [facility] Work Phone: Blood hemoglobin measurement (mass/volume)on 01-23-2022 Hemoglobin (Bld) [Mass/Vol] 13.4 g/dL 12.0-15.0 [facility] Work Phone: Blood lymphocytes/100 leukoc yteson 01-23-2022 Lymphocytes/100 WBC (Bld) 38.3 % 19-41 [facility] Work Phone: Blood monocytes/100 leukocyt eson 01-23-2022 Monocytes/100 WBC (Bld) 6.3 % 0-10 [facility] Work Phone: Blood platelet mean volumeon 01-23-2022 Platelet mean volume (Bld) [Entitic vol] 9.2 fL 6.2-12.0 [facility] Work Phone: [phone] Determination of erythrocyte mean corpuscular volume (MCV)on 01-23-2022 MCV (RBC) [Entitic vol] 78.2 fL 81-99 [facility] Work Phone: [phone] Hematocrit Auto (Bld) [Volum e fraction]on 01-23-2022 Hematocrit (Bld) [Volume fraction] 40.5 % 37-47 [facility] Work Phone: [phone] Laboratory - Chemistry and C hemistry - challengeon 01-23-2022 CO2 [Moles/Vol] 24.0 mmol/L 21.0-32.0 [facility] Work Phone: [phone] Urea nitrogen/Creatinine [Mass ratio] 17.3 mg/mg 10-20 [facility] Work Phone: [phone] Laboratory - Hematology and Cell countson 01-23-2022 Erythrocyte distribution width (RBC) [Entitic vol] 38.2 fL 35.1-43.9 [facility] Work Phone: [phone] Erythrocyte distribution width (RBC) [Ratio] 13.5 % 11.6-14.6 [facility] Work Phone: [phone] Immature granulocytes/100 WBC (Bld) 0.800 % 0.0-0.9 [facility] Work Phone: [phone] Comment on above: IG% - Immature Granu locytes (promyelocytes, myelocytes and metamyelocytes) > 1% indicates that a LEFT SHIFT is Present. MCH (RBC) [Entitic mass] 25.9 pg 27.0-32.0 [facility] Work Phone: [phone] Nucleated RBC/100 WBC (Bld) [Ratio] 0 % 0-5 [facility] Work Phone: [phone] MCHC Auto (RBC) [Mass/Vol]on 01-23-2022 MCHC (RBC) [Mass/Vol] 33.1 g/dL 32-[address] [facility] Work Phone: [phone] Panel Informationon 01-23 Estimated Creatinine Clearance Calc 79.29 ml/min [facility] Work Phone: Estimated GFR (MDRD) Amer 85 mL/min >60 [facility] Work Phone: Comment on above: GFR Calc Estimated GFR (MDRD) Non-Af Amer 70 mL/min >60 [facility] Work Phone: Comment on above: Non- GFR Calc Platelets bldon 01-23-2022 Platelets (Bld) [#/Vol] 470 10*3/uL 150-450 [facility] Work Phone: Serum or plasma calcium hussein urement (mass/volume)on 01-23-2022 Calcium [Mass/Vol] 9.6 mg/dL 8.5-10.1 [facility] Work Phone: Serum or plasma creatinine m easurement (mass/volume)on 01-23-2022 Creatinine [Mass/Vol] 0.98 mg/dL 0.55-1.02 [facility] Work Phone: Comment on above: The validity of the calculated GFR & GFRAA in patients over 70 years has not been determined. Clinical correlation is essential. Serum or plasma urea nitroge n measurement (mass/volume)on 01-23-2022 Urea nitrogen [Mass/Vol] 17 mg/dL 7-18 [facility] Work Phone: Thin prep Papanicolaou smear with manual screeningon 01-23-2022 Thin prep Papanicolaou smear with manual screening 10 -15 [facility] Work Phone: Glucose Glucometer (BldC) [M ass/Vol]on 01-22-2022 Glucose [Mass/Vol] 320 mg/dL 74-106 [facility] Work Phone: Comment on above: MANAGEMENT OF PATIEN T CARE PER NURSING PROTOCOL Glucose Glucometer (BldC) [M ass/Vol]on 01-16-2022 Glucose [Mass/Vol] 440 mg/dL 74-106 [facility] Work Phone: Comment on above: MANAGEMENT OF PATIEN T CARE PER NURSING PROTOCOL Absolute lymphocyte counton 11-16-2021 Lymphocytes Auto (Unsp spec) [#/Vol] 2.57 10*3/uL 0.83-4.51 [facility] Work Phone: Basophil percentageon 2021 Basophils/100 WBC (Bld) 0.4 % 0-1 [facility] Work Phone: Bilirubin [Mass/Vol] 0.50 mg/dL 0.20-1.00 [facility] Work Phone: Comment on above: For patients on eltr ombopag therapy, use of Dimension [place] TBIL is not recommended. Chloride [Moles/Vol] 99 mmol/L 98-107 [facility] Work Phone: Eosinophils/100 WBC (Bld) 0.6 % 0-5 [facility] Work Phone: Glucose [Mass/Vol] 331 mg/dL 74-106 [facility] Work Phone: Comment on above: Glucose result great er than or equal to 200 mg/dLsuggests DIABETES MELLITUS per A.D.A. criteria. Neutrophils (Bld) [#/Vol] 7.4 10*3/uL 2.0-7.7 [facility] Work Phone: Neutrophils/100 WBC (Bld) 68.0 % 47-70 [facility] Work Phone: Potassium [Moles/Vol] 4.1 mmol/L 3.5-5.1 [facility] Work Phone: Protein [Mass/Vol] 8.7 g/dL 6.4-8.2 [facility] Work Phone: Sodium [Moles/Vol] 133 mmol/L 136-145 [facility] Work Phone: WBC (Bld) [#/Vol] 10.9 10*3/uL 4.4-11.0 [facility] Work Phone: Blood erythrocytes count (nu mber/volume)on 11-16-2021 RBC (Bld) [#/Vol] 4.48 10*6/uL 4.2-5.4 [facility] Work Phone: [phone] Blood hemoglobin measurement (mass/volume)on 11-16-2021 Hemoglobin (Bld) [Mass/Vol] 11.9 g/dL 12.0-15.0 [facility] Work Phone: Blood lymphocytes/100 leukoc yteson 11-16-2021 Lymphocytes/100 WBC (Bld) 23.5 % 19-41 [facility] Work Phone: Blood monocytes/100 leukocyt eson 11-16-2021 Monocytes/100 WBC (Bld) 6.7 % 0-10 [facility] Work Phone: Blood platelet mean volumeon 11-16-2021 Platelet mean volume (Bld) [Entitic vol] 9.2 fL 6.2-12.0 [facility] Work Phone: Determination of erythrocyte mean corpuscular volume (MCV)on 11-16-2021 MCV (RBC) [Entitic vol] 81.9 fL 81-99 [facility] Work Phone: Hematocrit Auto (Bld) [Volum e fraction]on 11-16-2021 Hematocrit (Bld) [Volume fraction] 36.7 % 37-47 [facility] Work Phone: [phone] Laboratory - Chemistry and C hemistry - challengeon 11-16-2021 ALP [Catalytic activity/Vol] 130 U/L 45-117 [facility] Work Phone: ALT [Catalytic activity/Vol] 12 U/L 13-56 [facility] Work Phone: [phone] CO2 [Moles/Vol] 27.0 mmol/L 21.0-32.0 [facility] Work Phone: Globulin (S) [Mass/Vol] 6.0 g/dL 2.2-4.2 [facility] Work Phone: [phone] Urea nitrogen/Creatinine [Mass ratio] 10.7 mg/mg 10-20 [facility] Work Phone: [phone] Laboratory - Hematology and Cell countson 11-16-2021 Erythrocyte distribution width (RBC) [Entitic vol] 38.0 fL 35.1-43.9 [facility] Work Phone: [phone] Erythrocyte distribution width (RBC) [Ratio] 12.7 % 11.6-14.6 [facility] Work Phone: [phone] Immature granulocytes/100 WBC (Bld) 0.800 % 0.0-0.9 [facility] Work Phone: [phone] Comment on above: IG% - Immature Granu locytes (promyelocytes, myelocytes and metamyelocytes) > 1% indicates that a LEFT SHIFT is Present. MCH (RBC) [Entitic mass] 26.6 pg 27.0-32.0 [facility] Work Phone: [phone] Nucleated RBC/100 WBC (Bld) [Ratio] 0 % 0-5 [facility] Work Phone: [phone] MCHC Auto (RBC) [Mass/Vol]on 11-16-2021 MCHC (RBC) [Mass/Vol] 32.4 g/dL 32-36 [facility] Work Phone: No Panel Informationon 11-16 Estimated Creatinine Clearance Calc 103.61 ml/min [facility] Work Phone: [phone] Estimated GFR (MDRD) Amer 117 mL/min >60 [facility] Work Phone: [phone] Comment on above: GFR Calc Estimated GFR (MDRD) Non-Af Amer 96 mL/min >60 [facility] Work Phone: [phone] Comment on above: Non- GFR Calc Platelets bldon 11-16-2021 Platelets (Bld) [#/Vol] 471 10*3/uL 150-450 [facility] Work Phone: [phone] Serum or plasma albumin hussein urement (mass/volume)on 11-16-2021 Albumin [Mass/Vol] 2.7 g/dL 3.2-5.0 [facility] Work Phone: [phone] Serum or plasma albumin/glob ulin mass ratioon 11-16-2021 Albumin/Globulin [Mass ratio] 0.4 {ratio} 0.9-2.4 [facility] Work Phone: [phone] Serum or plasma calcium hussein urement (mass/volume)on 11-16-2021 Calcium [Mass/Vol] 8.9 mg/dL 8.5-10.1 [facility] Work Phone: [phone] Serum or plasma creatinine m easurement (mass/volume)on 11-16-2021 Creatinine [Mass/Vol] 0.75 mg/dL 0.55-1.02 [facility] Work Phone: [phone] Comment on above: The validity of the calculated GFR & GFRAA in patients over 70 years has not been determined. Clinical correlation is essential. Serum or plasma urea nitroge n measurement (mass/volume)on 11-16-2021 Urea nitrogen [Mass/Vol] 8 mg/dL 7-18 [facility] Work Phone: [phone] Thin prep Papanicolaou smear with manual screeningon 11-16-2021 Thin prep Papanicolaou smear with manual screening 6 U/L 15-37 [facility] Work Phone: [phone] Thin prep Papanicolaou smear with manual screening 7 5-15 [facility] Work Phone: [phone] Absolute lymphocyte counton 10-29-2021 Lymphocytes Auto (Unsp spec) [#/Vol] 2.98 10*3/uL 0.83-4.51 [facility] Work Phone: [phone] Basophil percentageon 2021 Basophils/100 WBC (Bld) 0.5 % 0-1 [facility] Work Phone: [phone] Bilirubin [Mass/Vol] 0.30 mg/dL 0.20-1.00 [facility] Work Phone: [phone] Comment on above: For patients on eltr ombopag therapy, use of Dimension [place] TBIL is not recommended. Chloride [Moles/Vol] 99 mmol/L 98-107 [facility] Work Phone: [phone] Eosinophils/100 WBC (Bld) 0.2 % 0-5 [facility] Work Phone: Glucose [Mass/Vol] 387 mg/dL 74-106 [facility] Work Phone: Comment on above: Glucose result great er than or equal to 200 mg/dLsuggests DIABETES MELLITUS per A.D.A. criteria. Neutrophils (Bld) [#/Vol] 9.2 10*3/uL 2.0-7.7 [facility] Work Phone: Neutrophils/100 WBC (Bld) 70.3 % 47-70 [facility] Work Phone: Potassium [Moles/Vol] 4.4 mmol/L 3.5-5.1 [facility] Work Phone: Protein [Mass/Vol] 9.0 g/dL 6.4-8.2 [facility] Work Phone: Sodium [Moles/Vol] 130 mmol/L 136-145 [facility] Work Phone: WBC (Bld) [#/Vol] 13.0 10*3/uL 4.4-11.[address] [facility] Work [facility]: Blood erythrocytes count (nu mber/volume)on 10-29-2021 RBC (Bld) [#/Vol] 4.95 10*6/uL 4.2-5.4 [facility] Work Phone: Blood hemoglobin measurement (mass/volume)on 10-29-2021 Hemoglobin (Bld) [Mass/Vol] 13.3 g/dL 12.0-15.0 [facility] Work Phone: Blood lymphocytes/100 leukoc yteson 10-29-2021 Lymphocytes/100 WBC (Bld) 22.9 % 19-41 [facility] Work Phone: Blood monocytes/100 leukocyt eson 10-29-2021 Monocytes/100 WBC (Bld) 5.3 % 0-10 [facility] Work Phone: Blood platelet mean volumeon 10-29-2021 Platelet mean volume (Bld) [Entitic vol] 9.0 fL 6.2-12.0 [facility] Work Phone: [phone] Determination of erythrocyte mean corpuscular volume (MCV)on 10-29-2021 MCV (RBC) [Entitic vol] 80.0 fL 81-99 [facility] Work Phone: [phone] Hematocrit Auto (Bld) [Volum e fraction]on 10-29-2021 Hematocrit (Bld) [Volume fraction] 39.6 % 37-47 [facility] Work Phone: [phone] Laboratory - Chemistry and C hemistry - challengeon 10-29-2021 ALP [Catalytic activity/Vol] 156 U/L 45-117 [facility] Work Phone: [phone] ALT [Catalytic activity/Vol] 23 U/L 13-56 [facility] Work Phone: [phone] CO2 [Moles/Vol] 25.0 mmol/L 21.0-32.0 [facility] Work Phone: [phone] Globulin (S) [Mass/Vol] 5.9 g/dL 2.2-4.2 [facility] Work Phone: [phone] Urea nitrogen/Creatinine [Mass ratio] 13.8 mg/mg 10-20 [facility] Work Phone: [phone] Laboratory - Hematology and Cell countson 10-29-2021 Erythrocyte distribution width (RBC) [Entitic vol] 37.2 fL 35.1-43.9 [facility] Work Phone: [phone] Erythrocyte distribution width (RBC) [Ratio] 13.1 % 11.6-14.6 [facility] Work Phone: [phone] Immature granulocytes/100 WBC (Bld) 0.800 % 0.0-0.9 [facility] Work Phone: [phone] Comment on above: IG% - Immature Granu locytes (promyelocytes, myelocytes and metamyelocytes) > 1% indicates that a LEFT SHIFT is Present. MCH (RBC) [Entitic mass] 26.9 pg 27.0-32.0 [facility] Work Phone: Nucleated RBC/100 WBC (Bld) [Ratio] 0 % 0-5 [facility] Work Phone: MCHC Auto (RBC) [Mass/Vol]on 10-29-2021 MCHC (RBC) [Mass/Vol] 33.6 g/dL 32-36 [facility] Work Phone: No Panel Informationon 10-29 Estimated Creatinine Clearance Calc 89.32 ml/min [facility] Work Phone: [phone] Estimated GFR (MDRD) Amer 99 mL/min >60 [facility] Work Phone: Comment on above: GFR Calc Estimated GFR (MDRD) Non-Af Amer 82 mL/min >60 [facility] Work Phone: Comment on above: Non- GFR Calc Platelets bldon 10-29-2021 Platelets (Bld) [#/Vol] 460 10*3/uL 150-450 [facility] Work Phone: Serum or plasma albumin hussein urement (mass/volume)on 10-29-2021 Albumin [Mass/Vol] 3.1 g/dL 3.2-5.0 [facility] Work Phone: Serum or plasma albumin/glob ulin mass ratioon 10-29-2021 Albumin/Globulin [Mass ratio] 0.5 {ratio} 0.9-2.4 [facility] Work Phone: [phone] Serum or plasma calcium hussein urement (mass/volume)on 10-29-2021 Calcium [Mass/Vol] 9.0 mg/dL 8.5-10.1 [facility] Work Phone: [phone] Serum or plasma choriogonado tropin detectionon 10-29-2021 HCG ( test) Ql < 1 mIU/mL <4 [facility] Work Phone: [phone] Comment on above: hCG levels with Gest ational AgeGestational Age hCG mIU/mL (IU/L)0.2 - 1 week 5 - 501-2 weeks 50 - 5002-3 weeks 100 - 14703-0 weeks 500 - 827217-1 weeks 1000 - 571894-8 weeks 75396 - 100,0006-8 weeks 88115 - 200,0002-3 months 61465 - 100,000 Serum or plasma creatinine m easurement (mass/volume)on 10-29-2021 Creatinine [Mass/Vol] 0.87 mg/dL 0.55-1.02 [facility] Work Phone: Comment on above: The validity of the calculated GFR & GFRAA in patients over 70 years has not been determined. Clinical correlation is essential. Serum or plasma urea nitroge n measurement (mass/volume)on 10-29-2021 Urea nitrogen [Mass/Vol] 12 mg/dL 7-18 [facility] Work Phone: Thin prep Papanicolaou smear with manual screeningon 10-29-2021 Thin prep Papanicolaou smear with manual screening 13 U/L 15-37 [facility] Work Phone: Thin prep Papanicolaou smear with manual screening 6 5-15 [facility] Work Phone: Absolute lymphocyte counton 08-10-2021 Lymphocytes Auto (Unsp spec) [#/Vol] 0.86 10*3/uL 0.83-4.51 [facility] Work Phone: Basophil percentageon 2021 Basophil percentage 5-10 SEEN /hpf [facility] Work Phone: Basophils/100 WBC (Bld) 0.2 % 0-1 [facility] Work Phone: Chloride [Moles/Vol] 100 mmol/L 98-107 [facility] Work Phone: Eosinophils/100 WBC (Bld) 0.3 % 0-5 [facility] Work Phone: Glucose [Mass/Vol] 406 mg/dL 74-106 [facility] Work Phone: Comment on above: Glucose result great er than or equal to 200 mg/dLsuggests DIABETES MELLITUS per A.D.A. criteria. Neutrophils (Bld) [#/Vol] 12.4 10*3/uL 2.0-7.7 [facility] Work Phone: Neutrophils/100 WBC (Bld) 89.0 % 47-70 [facility] Work Phone: [phone] Potassium [Moles/Vol] 4.2 mmol/L 3.5-5.1 [facility] Work Phone: [phone] Sodium [Moles/Vol] 134 mmol/L 136-145 [facility]: WBC (Bld) [#/Vol] 14.0 10*3/uL 4.4-11.[address] [facility] [facility] [facility] Work Phone: Beta hCG serum qualon 2021 Beta HCG ( test) Ql Negative [facility] Work Phone: [phone] Bilirubin Test strip Ql (U)o n 08-10-2021 Bilirubin Ql (U) Negative Negative [facility] Work Phone: Blood erythrocytes count (nu mber/volume)on 08-10-2021 RBC (Bld) [#/Vol] 5.34 10*6/uL 4.2-5.4 [facility] Work Phone: [phone] Blood hemoglobin measurement (mass/volume)on 08-10-2021 Hemoglobin (Bld) [Mass/Vol] 14.7 g/dL 12.0-15.0 [facility] Work Phone: Blood lymphocytes/100 leukoc yteson 08-10-2021 Lymphocytes/100 WBC (Bld) 6.1 % 19-41 [facility] Work Phone: Blood monocytes/100 leukocyt eson 08-10-2021 Monocytes/100 WBC (Bld) 4.0 % 0-10 [facility] Work Phone: Blood platelet mean volumeon 08-10-2021 Platelet mean volume (Bld) [Entitic vol] 9.6 fL 6.2-12.0 [facility] Work Phone: Determination of erythrocyte mean corpuscular volume (MCV)on 08-10-2021 MCV (RBC) [Entitic vol] 82.4 fL 81-99 [facility] Work Phone: [phone] Glucose Glucometer (BldC) [M ass/Vol]on 08-10-2021 Glucose [Mass/Vol] 377 mg/dL 70-110 [facility] Work Phone: [phone] Comment on above: MANAGEMENT OF PATIEN T CARE PER NURSING PROTOCOL Hematocrit Auto (Bld) [Volum e fraction]on 08-10-2021 Hematocrit (Bld) [Volume fraction] 44.0 % 37-47 [facility] Work Phone: [phone] Ketones Test strip Ql (U)on 08-10-2021 Ketones Ql (U) 150 mg/dl Negative [facility] Work Phone: [phone] Comment on above: CRITICAL VALUE *HCRI TICAL VALUE VERIFIED. CALLED TO Rafa PERAZA RN (ED)08/10/21 [address].RESULTS READ BACK BY SAME . Laboratory - Chemistry and C hemistry - challengeon 08-10-2021 CO2 [Moles/Vol] 23.0 mmol/L 21.0-32.0 [facility] Work Phone: [phone] Urea nitrogen/Creatinine [Mass ratio] 18.6 mg/mg 10-20 [facility] Work Phone: [phone] Laboratory - Hematology and Cell countson 08-10-2021 Erythrocyte distribution width (RBC) [Entitic vol] 39.0 fL 35.1-43.9 [facility] Work Phone: [phone] Erythrocyte distribution width (RBC) [Ratio] 13.1 % 11.6-14.6 [facility] Work Phone: [phone] Immature granulocytes/100 WBC (Bld) 0.400 % 0.0-0.9 [facility] Work Phone: [phone] Comment on above: IG% - Immature Granu locytes (promyelocytes, myelocytes and metamyelocytes) > 1% indicates that a LEFT SHIFT is Present. MCH (RBC) [Entitic mass] 27.5 pg 27.0-32.0 [facility] Work Phone: Nucleated RBC/100 WBC (Bld) [Ratio] 0 % 0-5 [facility] Work Phone: [phone] MCHC Auto (RBC) [Mass/Vol]on 08-10-2021 MCHC (RBC) [Mass/Vol] 33.4 g/dL 32-36 [facility] Work Phone: [phone] Mucus LM Ql (Urine sed)on Mucus Ql (Urine sed) 0 SEEN /hpf [facility] Work Phone: [phone] Nitrite Test strip Ql (U)on 08-10-2021 Nitrite Ql (U) Negative Negative [facility] Work Phone: [phone] Panel Informationon 08-10 Estimated Creatinine Clearance Calc 90.36 ml/min [facility] Work Phone: [phone] Estimated GFR (MDRD) Amer 100 mL/min >60 [facility] Work Phone: [phone] Comment on above: GFR Calc Estimated GFR (MDRD) Non-Af Amer 83 mL/min >60 [facility] Work Phone: [phone] Comment on above: Non- GFR Calc Platelets bldon 08-10-2021 Platelets (Bld) [#/Vol] 343 10*3/uL 150-450 [facility] Work Phone: [phone] Protein Test strip Ql (U)on 08-10-2021 Protein Ql (U) 30 mg/dl Negative [facility] Work Phone: [phone] Serum or plasma calcium hussein urement (mass/volume)on 08-10-2021 Calcium [Mass/Vol] 8.8 mg/dL 8.5-10.1 [facility] Work Phone: [phone] Serum or plasma creatinine m easurement (mass/volume)on 08-10-2021 Creatinine [Mass/Vol] 0.86 mg/dL 0.55-1.02 [facility] Work Phone: [phone] Comment on above: The validity of the calculated GFR & GFRAA in patients over 70 years has not been determined. Clinical correlation is essential. Serum or plasma urea nitroge n measurement (mass/volume)on 08-10-2021 Urea nitrogen [Mass/Vol] 16 mg/dL 7-18 [facility] Work Phone: [phone] Squamous epithelial cells de tection in urine sediment by light microscopyon 08-10-2021 Epithelial cells.squamous LM Ql (Urine sed) 0-5 SEEN /hpf [facility] Work Phone: [phone] Thin prep Papanicolaou smear with manual screeningon 08-10-2021 Thin prep Papanicolaou smear with manual screening 11 5-15 [facility] Work Phone: [phone] Urine blood detectionon 07-14 RBC Ql (U) 250 /ul Negative [facility] Work Phone: [phone] RBC Ql (U) > 100 SEEN /hpf [facility] Work Phone: [phone] Urine clarityon 08-10-2021 Clarity (U) Cloudy Clear [facility] Work Phone: Urine color determinationon 08-10-2021 Color (U) Yellow Yellow [facility] Work Phone: Urine glucose detectionon Glucose Ql (U) 1000 mg/dl Normal [facility] Work Phone: [phone] Urine leukocyte esterase det ection by dipstickon 08-10-2021 Leukocyte esterase Test strip Ql (U) 25 /ul Negative [facility] Work Phone: [phone] Urine pHon 08-10-2021 pH (U) 7.0 [pH] [facility] Work Phone: [phone] Urine sediment bacteria coun t by microscopy (number/high power field)on 08-10-2021 Bacteria LM.HPF (Urine sed) [#/Area] 1 /[HPF] None Seen [facility] Work Phone: Urine specific gravity measu rementon 08-10-2021 Specific gravity (U) [Rel density] 1.005 [facility] Work Phone: [phone] Urobilinogen Auto test strip Ql (U)on 08-10-2021 Urobilinogen Ql (U) 1 mg/dl Normal [facility] Work Phone: XR Chest PA and Lateralon IMPRESSION: No acute radiographic abnormality. Family Development Extension Specialist: OLGA Transcribe Date/Time: May 15 2021 10:07A Dictated by : ELISEO LYON MD This examination was interpreted and the report reviewed and electronically signed by: ELISEO LYON MD on May 15 2021 10:08AM [facility] DIVISION OF RADIOLOGY * * *Final [...] soft tissues: Unremarkable. DIVISION OF RADIOLOGY Provider, [facility] - 05/15/2021 * * *Final Report* * [...] Unremarkable. IMPRESSION IMPRESSION: No acute radiographic abnormality. Family Development Extension Specialist: OLGA Transcribe Date/Time: May 15 2021 10:07A Dictated by : ELISEO LYON MD This examination was interpreted and the report reviewed and electronically signed by: ELISEO LYON MD on May 15 2021 10:08AM EST [facility] Radiology Study observation (narrative) Melissa gupta [facility] XR Chest PA and LateralOrder ed By: [facility] Provider on 05-15-2021 [facility] Anaerobic culture Bacteria identified Anaer cx Nom (Unsp spec) No anaerobic bacteria isolated. [facility] Work Phone: Bacteria identified Anaer cx Nom (Unsp spec) Anaerobic microbial culture No anaerobic bacteria isolated. [facility] Work Phone: Bacteria identified Cx Nom ( Wound) Wound Culture Meth. resistant Stap h. aureus [facility] Work Phone: [phone] Wound Culture Streptococcus agalactiae (B) [facility] Work Phone: COVID-19 virus antigen assay SARS-CoV-2 (COVID-19) Ag IA.rapid Ql (Resp) [facility] Work Phone: Culture, urine Bacteria identified Cx Nom (U) Culture exhibits no growth. [facility] Work Phone: Gram stain for investigation of transfusion reaction Microscopic observation Gram stain Nom (Unsp spec) [facility] Work Phone: Laboratory - Microbiology an d Antimicrobial susceptibility Bacteria identified Cx Nom (Bld) No growth in 5 days. [facility] Work Phone: Routine wound culture Bacteria identified Cx Nom (Wound) No growth aerobically. [facility] Work Phone: Vital Signs Date Time Vital Sign Value Performing Clinician Facility 12-31-2024 08:00-0400 Body temperature 98.2 [degF] Amy Solorzano NP-C Work Phone: [facility] 12-31-2024 08:00-0400 Diastolic blood pressure 81 mm[Hg] Amy Solorzano NP-C Work Phone: [facility] 12-31-2024 08:00-0400 Heart rate 73 /min Amy Solorzano NP-C Work Phone: [facility] 12-31-2024 08:00-0400 Respiratory rate 23 /min Amy Solorzano NP-C Work Phone: [phone] [address] 12-31-2024 08:00-0400 SaO2% (BldA) [Mass fraction] 98 % Amy Solorzano GRIZZLYMAN-C Work Phone: [phone] [place] [address] 12-31-2024 08:00-0400 Systolic blood pressure 123 mm[Hg] Amy Solorzano [facility] Work Phone: [phone] [place] [address] 12-31-2024 05:29-0400 Body mass index (BMI) [Ratio] 39.2 kg/m2 Amypalma Solorzano [facility] Work Phone: [phone] [place] [address] 12-31-2024 05:29-0400 Body weight 110.1 kg Amy Solorzano [facility] Work Phone: [phone] [place] [address] 12-30-2024 13:37-0400 Body height 167.64 cm Amy Solorzano [facility]MAN-C Work Phone: [phone] [place] [address] 12-30-2024 12:35-0400 Body temperature 97.4 [degF] Amy Solorzano GRIZZLYMAN-C Work Phone: [phone] [place] [address] 12-30-2024 12:35-0400 Diastolic blood pressure 93 mm[Hg] Amy Solorzano [facility]ZZ[facility]MAN-C Work Phone: [phone] [place] [address] 12-30-2024 12:35-0400 Heart rate 94 /min Amy Solorzano [facility]MAN-C Work Phone: [phone] [place] [address] 12-30-2024 12:35-0400 Respiratory rate 18 /min Amy Solorzano [facility]MAN-C Work Phone: [phone] [place] [address] 12-30-2024 12:35-0400 SaO2% (BldA) [Mass fraction] 96 % Amy Solorzano [facility]ZZ[facility]MAN-C Work Phone: [phone] [place] [address] 12-30-2024 12:35-0400 Systolic blood pressure 126 mm[Hg] Amy Solorzano G[facility]ZZLYMAN-C Work Phone: [phone] [place] [address] 12-30-2024 10:25-0400 Body height 167.64 cm Amy Solorzano [facility]MAN-C Work Phone: [phone] [place] [address] 12-30-2024 10:25-0400 Body mass index (BMI) [Ratio] 37.7 kg/m2 Amy Solorzano [facility] Work Phone: [phone] [place] [address] 12-30-2024 10:25-0400 Body weight 106 kg Amy Solorzano [facility] Work Phone: [phone] [place] [address] 12-13-2024 08:30-0400 Body height 167.64 cm Amy Solorzano [facility]MAN-[facility] Work Phone: [phone] [place] [address] 12-13-2024 08:30-0400 Body mass index (BMI) [Ratio] 39.2 kg/m2 Amy Solorzano [facility] Work Phone: [phone] [place] [address] 12-13-2024 08:30-0400 Body weight 110.22 kg Amy Solorzano [facility] Work Phone: [phone] [place] [address] 12-13-2024 08:30-0400 Diastolic blood pressure 97 mm[Hg] Amy Solorzano [facility]MAN-C Work Phone: [phone] [place] [address] 12-13-2024 08:30-0400 Heart rate 93 /min Amy Solorzano [facility] Work Phone: [phone] [place] [address] 12-13-2024 08:30-0400 Respiratory rate 19 /min Amy Solorzano [facility] Work Phone: [phone] [place] [address] 12-13-2024 08:30-0400 SaO2% (BldA) [Mass fraction] 97 % Amy Solorzano [facility] Work Phone: [phone] [place] [address] 12-13-2024 08:30-0400 Systolic blood pressure 138 mm[Hg] Amy Solorzano [facility]MAN-C Work Phone: [phone] [place] [address] 11-28-2024 13:00-0400 Body temperature 98 [degF] Amy Solorzano [facility]MAN-C Work Phone: [phone] [place] [address] 11-28-2024 13:00-0400 Diastolic blood pressure 96 mm[Hg] Amy Solorzano GRIZZLYMAN-C Work Phone: 2(055)817-984817 [place] [address] 11-28-2024 13:00-0400 Heart rate 60 /min Amy Solorzano GRIZZLYMAN-C Work Phone: 5(599)506-274517 [place] [address] 11-28-2024 13:00-0400 SaO2% (BldA) [Mass fraction] 99 % Amy Solorzano GRIZZLYMAN-C Work Phone: 1(722)382-318017 [place] [address] 11-28-2024 13:00-0400 Systolic blood pressure 156 mm[Hg] Amy Solorzano GRIZZLYMAN-C Work Phone: 5(707)242-076317 [place] [address] 11-28-2024 08:25-0400 Body temperature 98.1 [degF] Amy Solorzano GRIZZLYMAN-C Work Phone: 1(925)830-209017 [place] [address] 11-28-2024 08:25-0400 Diastolic blood pressure 84 mm[Hg] Amy Solorzano GRIZZLYMAN-C Work Phone: 3(796)988-625217 [place] [address] 11-28-2024 08:25-0400 Heart rate 75 /min Amy Solorzano GRIZZLYMAN-C Work Phone: 4(517)140-222017 [place] [address] 11-28-2024 08:25-0400 Respiratory rate 18 /min Amy Solorzano GRIZZLYMAN-C Work Phone: 6(397)317-243617 [place] [address] 11-28-2024 08:25-0400 SaO2% (BldA) [Mass fraction] 97 % Amy Solorzano GRIZZLYMAN-C Work Phone: 0(171)196-666417 [place] [address] 11-28-2024 08:25-0400 Systolic blood pressure 154 mm[Hg] Amy Solorzano GRIZZLYMAN-C Work Phone: 6(422)495-946417 [place] [address] 11-27-2024 13:47-0400 Body height 167.64 cm Amy Solorzano GRIZZLYMAN-C Work Phone: 3(816)217-537717 [place] [address] 11-27-2024 13:47-0400 Body weight 110.7 kg Amy Solorzano GRIZZLYMAN-C Work Phone: 4(622)986-657617 [place] [address] 11-25-2024 14:54-0400 Body mass index (BMI) [Ratio] 39.4 kg/m2 Amy Solorzano GRIZZLYMAN-C Work Phone: 8(431)124-772417 [place] [address] 11-25-2024 14:00-0400 Diastolic blood pressure 91 mm[Hg] Amy Solorzano GRIZZLYMAN-C Work Phone: 7(398)585-315610 [place] [address] 11-25-2024 14:00-0400 Heart rate 91 /min Amy Solorzano GRIZZLYMAN-C Work Phone: 0(755)970-193810 [place] [address] 11-25-2024 14:00-0400 Respiratory rate 18 /min Amy Solorzano GRIZZLYMAN-C Work Phone: 7(955)967-741317 [place] [address] 11-25-2024 14:00-0400 SaO2% (BldA) [Mass fraction] 95 % Amy Solorzano GRIZZLYMAN-C Work Phone: 0(098)618-979517 [place] [address] 11-25-2024 14:00-0400 Systolic blood pressure 129 mm[Hg] Amy Rashad GRIZZLYMAN-C Work Phone: 9(306)446-222817 [place] [address] 11-25-2024 11:00-0400 Body temperature 97.6 [degF] Amy Rashad GRIZZLYMAN-C Work Phone: 6(920)433-765517 [place] [address] 11-25-2024 08:48-0400 Body height 167.64 cm Amy Solorzano GRIZZLYMAN-C Work Phone: 0(034)464-693017 [place] [address] 11-25-2024 08:48-0400 Body mass index (BMI) [Ratio] 40.9 kg/m2 Amy Solorzano GRIZZLYMAN-C Work Phone: 6(788)662-688517 [place] [address] 11-25-2024 08:48-0400 Body weight 115.03 kg Amy Rashad GRIZZLYMAN-C Work Phone: 3(303)353-432269 [address] 07-03-2024 12:26-0500 Body mass index (BMI) [Ratio] 40.02 kg/m2 Krislyn Aberegg PA Work Phone: [facility] 07-03-2024 12:26-0500 Body temperature 97 [degF] Krislyn Aberegg PA Work Phone: [facility] 07-03-2024 12:26-0500 Body weight 115.9 kg Krislyn Aberegg PA Work Phone: [facility] 07-03-2024 12:26-0500 Diastolic blood pressure 90 mm[Hg] Krislyn Aberegg PA Work Phone: [facility] 07-03-2024 12:26-0500 Heart rate 104 /min Krislyn Aberegg PA Work Phone: [facility] 07-03-2024 12:26-0500 Respiratory rate 16 /min Krislyn Aberegg PA Work Phone: [facility] 07-03-2024 12:26-0500 SaO2% (BldA) [Mass fraction] 100 % Krislyn Aberegg PA Work Phone: [facility] 07-03-2024 12:26-0500 Systolic blood pressure 122 mm[Hg] Krislyn Aberegg PA Work Phone: [facility] 06-26-2024 10:36-0500 Body mass index (BMI) [Ratio] 39.95 kg/m2 Frantz Clutter PA-C Work Phone: [facility] 06-26-2024 10:36-0500 Body temperature 97.39 [degF] Frantz Clutter PA-C Work Phone: [facility] 06-26-2024 10:36-0500 Body weight 115.7 kg Frantz Clutter PA-C Work Phone: [facility] 06-26-2024 10:36-0500 Diastolic blood pressure 78 mm[Hg] Frantz Clutter PA-C Work Phone: [facility] 06-26-2024 10:36-0500 Heart rate 117 /min Frantz Clutter PA-C Work Phone: [facility] 06-26-2024 10:36-0500 Respiratory rate 18 /min Frantz Clutter PA-C Work Phone: [facility] 06-26-2024 10:36-0500 SaO2% (BldA) [Mass fraction] 97 % Frantz Clutter PA-C Work Phone: [facility] 06-26-2024 10:36-0500 Systolic blood pressure 122 mm[Hg] Frantz Arevalo PA-C Work Phone: [facility] 07-23-2023 11:30-0500 Body temperature 96.9 [degF] No Primary Care Physician [facility] 07-23-2023 11:30-0500 Diastolic blood pressure 82 mm[Hg] No Primary Care Physician [facility] 07-23-2023 11:30-0500 Heart rate 80 /min No Primary Care Physician [facility] 07-23-2023 11:30-0500 Respiratory rate 16 /min No Primary Care Physician [facility] 07-23-2023 11:30-0500 SaO2% (BldA) [Mass fraction] 99 % No Primary Care Physician [facility] 07-23-2023 11:30-0500 Systolic blood pressure 117 mm[Hg] No Primary Care Physician [facility] 07-23-2023 11:05-0500 Inhaled oxygen flow rate 4 L/min No Primary Care Physician [facility] 07-23-2023 08:34-0500 Body height 167.64 cm No Primary Care Physician [facility] 07-23-2023 08:34-0500 Body mass index (BMI) [Ratio] 32.5 kg/m2 No Primary Care Physician [facility] 07-23-2023 08:34-0500 Body weight 91.62 kg No Primary Care Physician [facility] 07-12-2023 10:13-0500 Body mass index (BMI) [Ratio] 32.1 kg/m2 No Primary Care Physician [facility] 07-12-2023 10:13-0500 Body temperature 98.2 [degF] No Primary Care Physician [facility] 07-12-2023 10:13-0500 Body weight 90.4 kg No Primary Care Physician [facility] 07-12-2023 10:13-0500 Diastolic blood pressure 90 mm[Hg] No Primary Care Physician [facility] 07-12-2023 10:13-0500 Heart rate 98 /min No Primary Care Physician [facility] 07-12-2023 10:13-0500 Respiratory rate 14 /min No Primary Care Physician [facility] 07-12-2023 10:13-0500 SaO2% (BldA) [Mass fraction] 100 % No Primary Care Physician [facility] 07-12-2023 10:13-0500 Systolic blood pressure 124 mm[Hg] No Primary Care Physician [facility] 07-02-2023 09:17-0500 Diastolic blood pressure 94 mm[Hg] No Primary Care Physician [facility] 07-02-2023 09:17-0500 Systolic blood pressure 142 mm[Hg] No Primary Care Physician [facility] 07-02-2023 09:14-0500 Body height 167.64 cm No Primary Care Physician [facility] 07-02-2023 09:14-0500 Body temperature 96.4 [degF] No Primary Care Physician [facility] 07-02-2023 09:14-0500 Heart rate 100 /min No Primary Care Physician [facility] 07-02-2023 09:14-0500 Respiratory rate 16 /min No Primary Care Physician [facility] 07-02-2023 09:14-0500 SaO2% (BldA) [Mass fraction] 100 % No Primary Care Physician [facility] 07-01-2023 10:07-0500 Body temperature 97 [degF] Andres Pendlejosé luis [employer] DIE COORDINATOR Work Phone: [facility] 07-01-2023 10:07-0500 Body weight 93.44 kg Andres Mpjosé luis [employer].EXTRUSION DIE COORDINATOR Work Phone: [facility] 07-01-2023 10:07-0500 Diastolic blood pressure 82 mm[Hg] Andres Pendlebury [employer].EXTRUSION DIE COORDINATOR Work Phone: [facility] 07-01-2023 10:07-0500 Heart rate 91 /min Andres Pendlebury [employer].EXTRUSION DIE COORDINATOR Work Phone: [facility] 07-01-2023 10:07-0500 Respiratory rate 18 /min Andres Pendlebury [employer].EXTRUSION DIE COORDINATOR Work Phone: [facility] 07-01-2023 10:07-0500 SaO2% (BldA) [Mass fraction] 100 % Andres Pendlebury [employer].EXTRUSION DIE COORDINATOR Work Phone: [facility] 07-01-2023 10:07-0500 Systolic blood pressure 117 mm[Hg] Andres Anastacia MARTINEZEXTRUSION DIE COORDINATOR Work Phone: [facility] 06-30-2023 13:41-0500 Heart rate 72 /min No Primary Care Physician [facility] 06-30-2023 13:41-0500 Respiratory rate 16 /min No Primary Care Physician [facility] 06-30-2023 13:41-0500 SaO2% (BldA) [Mass fraction] 98 % No Primary Care Physician [facility] 06-30-2023 09:24-0500 Body mass index (BMI) [Ratio] 34 kg/m2 No Primary Care Physician [facility] 06-30-2023 09:24-0500 Body weight 95.7 kg No Primary Care Physician [facility] 06-30-2023 08:22-0500 Body temperature 98 [degF] No Primary Care Physician [facility] 06-30-2023 08:22-0500 Diastolic blood pressure 110 mm[Hg] No Primary Care Physician [facility] 06-30-2023 08:22-0500 Systolic blood pressure 170 mm[Hg] No Primary Care Physician [facility] 06-28-2023 09:17-0500 Body height 167.64 cm No Primary Care Physician [facility] 06-28-2023 09:17-0500 Body mass index (BMI) [Ratio] 33.6 kg/m2 No Primary Care Physician [facility] 06-28-2023 09:17-0500 Body temperature 98.2 [degF] No Primary Care Physician [facility] 06-28-2023 09:17-0500 Body weight 94.5 kg No Primary Care Physician [facility] 06-28-2023 09:17-0500 Diastolic blood pressure 105 mm[Hg] No Primary Care Physician [facility] 06-28-2023 09:17-0500 Heart rate 82 /min No Primary Care Physician [facility] 06-28-2023 09:17-0500 Respiratory rate 14 /min No Primary Care Physician [facility] 06-28-2023 09:17-0500 SaO2% (BldA) [Mass fraction] 99 % No Primary Care Physician [facility] 06-28-2023 09:17-0500 Systolic blood pressure 154 mm[Hg] No Primary Care Physician [facility] 06-27-2023 05:50-0500 Body height 167.64 cm No Primary Care Physician [facility] 06-27-2023 05:50-0500 Body mass index (BMI) [Ratio] 34 kg/m2 No Primary Care Physician [facility] 06-27-2023 05:50-0500 Body temperature 98.6 [degF] No Primary Care Physician [facility] 06-27-2023 05:50-0500 Body weight 95.7 kg No Primary Care Physician [facility] 06-27-2023 05:50-0500 Diastolic blood pressure 98 mm[Hg] No Primary Care Physician [facility] 06-27-2023 05:50-0500 Heart rate 85 /min No Primary Care Physician [facility] 06-27-2023 05:50-0500 Respiratory rate 16 /min No Primary Care Physician [facility] 06-27-2023 05:50-0500 SaO2% (BldA) [Mass fraction] 99 % No Primary Care Physician [facility] 06-27-2023 05:50-0500 Systolic blood pressure 163 mm[Hg] No Primary Care Physician [facility] 06-26-2023 17:04-0500 Heart rate 74 /min No Primary Care Physician [facility] 06-26-2023 17:04-0500 Respiratory rate 18 /min No Primary Care Physician [facility] 06-26-2023 17:04-0500 SaO2% (BldA) [Mass fraction] 97 % No Primary Care Physician [facility] 06-26-2023 11:30-0500 Body height 167.64 cm No Primary Care Physician [facility] 06-26-2023 11:30-0500 Body mass index (BMI) [Ratio] 34.1 kg/m2 No Primary Care Physician [facility] 06-26-2023 11:30-0500 Body temperature 97 [degF] No Primary Care Physician [facility] 06-26-2023 11:30-0500 Body weight 95.98 kg No Primary Care Physician [facility] 06-26-2023 11:30-0500 Diastolic blood pressure 120 mm[Hg] No Primary Care Physician [facility] 06-26-2023 11:30-0500 Systolic blood pressure 135 mm[Hg] No Primary Care Physician [facility] 06-25-2023 12:33-0500 Diastolic blood pressure 69 mm[Hg] No Primary Care Physician [facility] 06-25-2023 12:33-0500 Heart rate 82 /min No Primary Care Physician [facility] 06-25-2023 12:33-0500 Respiratory rate 16 /min No Primary Care Physician [facility] 06-25-2023 12:33-0500 SaO2% (BldA) [Mass fraction] 100 % No Primary Care Physician [facility] 06-25-2023 12:33-0500 Systolic blood pressure 124 mm[Hg] No Primary Care Physician [facility] 06-25-2023 09:27-0500 Body height 168 cm No Primary Care Physician [facility] 06-25-2023 09:27-0500 Body mass index (BMI) [Ratio] 32.1 kg/m2 No Primary Care Physician [facility] 06-25-2023 09:27-0500 Body temperature 96.5 [degF] No Primary Care Physician [facility] 06-25-2023 09:27-0500 Body weight 90.71 kg No Primary Care Physician [facility] 05-09-2023 14:02-0400 Body temperature 98.4 [degF] No Primary Care Physician [facility] 05-09-2023 14:02-0400 Diastolic blood pressure 102 mm[Hg] No Primary Care Physician [facility] 05-09-2023 14:02-0400 Heart rate 74 /min No Primary Care Physician [facility] 05-09-2023 14:02-0400 Respiratory rate 18 /min No Primary Care Physician [facility] 05-09-2023 14:02-0400 SaO2% (BldA) [Mass fraction] 100 % No Primary Care Physician [facility] 05-09-2023 14:02-0400 Systolic blood pressure 177 mm[Hg] No Primary Care Physician [facility] 05-09-2023 13:32-0400 Body temperature 98.4 [degF] [facility] Work Phone: [facility] 05-09-2023 13:32-0400 Diastolic blood pressure 121 mm[Hg] [facility] Work Phone: 4(184)132-632717 [place] [address] 05-09-2023 13:32-0400 Heart rate 74 /min [facility] Work Phone: 8(224)230-485617 [place] [address] 05-09-2023 13:32-0400 Respiratory rate 18 /min [facility] Work Phone: 5(454)766-587417 [place] [address] 05-09-2023 13:32-0400 SaO2% (BldA) [Mass fraction] 100 % [facility] Work Phone: 0(950)043-707617 [place] [address] 05-09-2023 13:32-0400 Systolic blood pressure 177 mm[Hg] [facility] Work Phone: 3(651)282-923517 [place] [address] 05-07-2023 11:35-0400 Body height 167.64 cm [facility] Work Phone: 5(702)819-704517 [place] [address] 05-07-2023 11:35-0400 Body mass index (BMI) [Ratio] 33.5 kg/m2 [facility] Work Phone: 8(843)890-776317 [place] [address] 05-07-2023 11:35-0400 Body weight 94.2 kg [facility] Work Phone: 1(033)083-198717 [place] [address] 05-04-2023 15:23-0400 Body height 167.64 cm [facility] Work Phone: 9(526)120-657817 [place] [address] 05-04-2023 15:23-0400 Body mass index (BMI) [Ratio] 33.5 kg/m2 [facility] Work Phone: 5(616)875-328817 [place] [address] 05-04-2023 15:23-0400 Body temperature 97.4 [degF] [facility] Work Phone: 1(004)099-514417 [place] [address] 05-04-2023 15:23-0400 Body weight 94.2 kg [facility] Work Phone: 2(779)805-030117 [place] [address] 05-04-2023 15:23-0400 Diastolic blood pressure 69 mm[Hg] [facility] Work Phone: 4(009)825-076217 [place] [address] 05-04-2023 15:23-0400 Heart rate 84 /min [facility] Work Phone: 5(590)633-441117 [place] [address] 05-04-2023 15:23-0400 Inhaled oxygen flow rate 96 L/min [facility] Work Phone: 2(080)647-788917 [place] [address] 05-04-2023 15:23-0400 Respiratory rate 16 /min [facility] Work Phone: 3(848)508-149417 [place] [address] 05-04-2023 15:23-0400 Systolic blood pressure 134 mm[Hg] [facility] Work Phone: 3(783)452-151317 [place] [address] 05-04-2023 14:51-0400 SaO2% (BldA) [Mass fraction] 97 % [facility] Work Phone: 5(511)820-070817 [place] [address] 04-15-2023 13:43-0400 Diastolic blood pressure 58 mm[Hg] [facility] Work Phone: 4(230)529-170817 [place] [address] 04-15-2023 13:43-0400 Heart rate 72 /min [facility] Work Phone: 9(007)697-555917 [place] [address] 04-15-2023 13:43-0400 Respiratory rate 16 /min [facility] Work Phone: 3(862)482-593817 [place] [address] 04-15-2023 13:43-0400 SaO2% (BldA) [Mass fraction] 99 % [facility] Work Phone: 4(876)492-072617 [place] [address] 04-15-2023 13:43-0400 Systolic blood pressure 122 mm[Hg] [facility] Work Phone: 9(525)517-775417 [place] [address] 04-15-2023 11:17-0400 Body mass index (BMI) [Ratio] 29.3 kg/m2 [facility] Work Phone: 5(611)615-090017 [place] [address] 04-15-2023 11:17-0400 Body temperature 97 [degF] [facility] Work Phone: 4(873)957-818617 [place] [address] 04-15-2023 11:17-0400 Body weight 82.4 kg [facility] Work Phone: 0(875)706-738117 [place] [address] 04-14-2023 11:51-0400 Body mass index (BMI) [Ratio] 32.3 kg/m2 [facility] Work Phone: 9(141)400-639217 [place] [address] 04-14-2023 11:51-0400 Body temperature 97.2 [degF] [facility] Work Phone: 5(489)012-105717 [place] [address] 04-14-2023 11:51-0400 Body weight 90.71 kg [facility] Work Phone: 8(913)355-082417 [place] [address] 04-14-2023 11:51-0400 Diastolic blood pressure 92 mm[Hg] [facility] Work Phone: 9(518)637-151417 [place] [address] 04-14-2023 11:51-0400 Heart rate 102 /min [facility] Work Phone: 8(312)438-085717 [place] [address] 04-14-2023 11:51-0400 Respiratory rate 24 /min [facility] Work Phone: 8(292)935-208317 [place] [address] 04-14-2023 11:51-0400 SaO2% (BldA) [Mass fraction] 100 % [facility] Work Phone: 8(117)303-191117 [place] [address] 04-14-2023 11:51-0400 Systolic blood pressure 131 mm[Hg] [facility] Work Phone: 9(904)276-244617 [place] [address] 04-13-2023 10:36-0400 Diastolic blood pressure 78 mm[Hg] [facility] Work Phone: 9(836)904-355617 [place] [address] 04-13-2023 10:36-0400 Heart rate 64 /min [facility] Work Phone: 1(044)101-623117 [place] [address] 04-13-2023 10:36-0400 Respiratory rate 14 /min [facility] Work Phone: 2(843)218-699317 [place] [address] 04-13-2023 10:36-0400 SaO2% (BldA) [Mass fraction] 98 % [facility] Work Phone: 1(132)250-732717 [place] [address] 04-13-2023 10:36-0400 Systolic blood pressure 108 mm[Hg] [facility] Work Phone: 1(964)576-916117 [place] [address] 04-13-2023 08:59-0400 Body mass index (BMI) [Ratio] 32.3 kg/m2 [facility] Work Phone: 4(624)416-397517 [place] [address] 04-13-2023 08:59-0400 Body temperature 95.9 [degF] [facility] Work Phone: 5(258)808-159517 [place] [address] 04-13-2023 08:59-0400 Body weight 90.71 kg [facility] Work Phone: 0(054)848-661017 [place] [address] 03-06-2023 08:15-0400 Body height 167.64 cm [facility] Work Phone: 2(908)706-029817 [place] [address] 03-06-2023 08:15-0400 Body mass index (BMI) [Ratio] 32.5 kg/m2 [facility] Work Phone: 9(852)929-517117 [place] [address] 03-06-2023 08:15-0400 Body temperature 97 [degF] [facility] Work Phone: 8(361)432-129317 [place] [address] 03-06-2023 08:15-0400 Body weight 91.3 kg [facility] Work Phone: 3(022)961-894317 [place] [address] 03-06-2023 08:15-0400 Diastolic blood pressure 113 mm[Hg] [facility] Work Phone: 6(590)758-263317 [place] [address] 03-06-2023 08:15-0400 Heart rate 100 /min [facility] Work Phone: 0(299)932-501517 [place] [address] 03-06-2023 08:15-0400 Respiratory rate 14 /min [facility] Work Phone: 5(576)690-262417 [place] [address] 03-06-2023 08:15-0400 SaO2% (BldA) [Mass fraction] 100 % [facility] Work Phone: 2(181)213-469317 [place] [address] 03-06-2023 08:15-0400 Systolic blood pressure 153 mm[Hg] [facility] Work Phone: 7(837)661-739117 [place] [address] 03-01-2023 10:40-0400 Body height 170.2 cm Dewayne Doran MD Work Phone: [facility] 03-01-2023 10:40-0400 Body temperature 98.2 [degF] Dewayne Doran MD Work Phone: [facility] 03-01-2023 10:40-0400 Body weight 90.1 kg Dewayne Doran MD Work Phone: [facility] 03-01-2023 10:40-0400 Diastolic blood pressure 87 mm[Hg] Dewayne Doran MD Work Phone: [facility] 03-01-2023 10:40-0400 Heart rate 109 /min Dewayne Doran MD Work Phone: [facility] 03-01-2023 10:40-0400 SaO2% (BldA) [Mass fraction] 97 % Dewayne Doran MD Work Phone: [facility] 03-01-2023 10:40-0400 Systolic blood pressure 119 mm[Hg] Dewayne Doran MD Work Phone: [facility] 02-26-2023 03:54-0400 Diastolic blood pressure 63 mm[Hg] [facility] Work Phone: 8(451)557-300469 [address] 02-26-2023 03:54-0400 Heart rate 68 /min [facility] Work Phone: 7(820)408-841069 [address] 02-26-2023 03:54-0400 Respiratory rate 15 /min [facility] Work Phone: 2(726)521-939917 [place] [address] 02-26-2023 03:54-0400 SaO2% (BldA) [Mass fraction] 97 % [facility] Work Phone: 6(108)758-060310 [place] [address] 02-26-2023 03:54-0400 Systolic blood pressure 107 mm[Hg] [facility] Work Phone: 6(894)002-749469 [address] 02-25-2023 23:59-0400 Body height 167.64 cm [facility] Work Phone: 4(913)221-943617 [place] [address] 02-25-2023 23:59-0400 Body mass index (BMI) [Ratio] 31.8 kg/m2 [facility] Work Phone: 0(772)209-165869 [address] 02-25-2023 23:59-0400 Body temperature 98 [degF] [facility] Work Phone: 1(768)309-401417 [place] [address] 02-25-2023 23:59-0400 Body weight 89.44 kg [facility] Work Phone: 6(358)949-825417 [place] [address] 02-24-2023 12:55-0400 Diastolic blood pressure 93 mm[Hg] [facility] Work Phone: 9(428)475-228317 [place] [address] 02-24-2023 12:55-0400 Heart rate 85 /min [facility] Work Phone: 6(246)986-044617 [place] [address] 02-24-2023 12:55-0400 Respiratory rate 18 /min [facility] Work Phone: 0(330)980-188717 [place] [address] 02-24-2023 12:55-0400 SaO2% (BldA) [Mass fraction] 96 % [facility] Work Phone: 5(652)654-263317 [place] [address] 02-24-2023 12:55-0400 Systolic blood pressure 124 mm[Hg] [facility] Work Phone: 3(856)941-495917 [place] [address] 02-24-2023 11:32-0400 Body mass index (BMI) [Ratio] 32.4 kg/m2 [facility] Work Phone: 2(105)045-888717 [place] [address] 02-24-2023 11:32-0400 Body temperature 97.8 [degF] [facility] Work Phone: 7(521)924-577317 [place] [address] 02-24-2023 11:32-0400 Body weight 91.22 kg [facility] Work Phone: 7(504)949-163717 [place] [address] 02-23-2023 09:59-0400 Body temperature 97.11 [degF] Pilar Magdaleno APRN.CNP Work Phone: [facility] 02-23-2023 09:59-0400 Body weight 91.17 kg Pilar Magdaleno APRN.EXTRUSION DIE COORDINATOR Work Phone: [facility] 02-23-2023 09:59-0400 Diastolic blood pressure 74 mm[Hg] Pilar Magdaleno APRN.EXTRUSION DIE COORDINATOR Work Phone: [facility] 02-23-2023 09:59-0400 Heart rate 88 /min Pilar Knoble [employer].EXTRUSION DIE COORDINATOR Work Phone: [facility] 02-23-2023 09:59-0400 Respiratory rate 16 /min Pilar Rasta [employer].EXTRUSION DIE COORDINATOR Work Phone: [facility] 02-23-2023 09:59-0400 Systolic blood pressure 118 mm[Hg] Pilar Rasta [employer].EXTRUSION DIE COORDINATOR Work Phone: [facility] 02-11-2023 15:17-0400 Body temperature 97.88 [degF] HELENA SILVERMAN [employer]-EXTRUSION DIE COORDINATOR [facility] 02-11-2023 15:17-0400 Diastolic Blood Pressure Non-Invasive 86 1 HELENA SILVERMAN [employer]-EXTRUSION DIE COORDINATOR [facility] 02-11-2023 15:17-0400 Heart rate 67 /min HELENA SILVERMAN [employer]-EXTRUSION DIE COORDINATOR [facility] 02-11-2023 15:17-0400 Reason For Taking VItal Signs HELENA SILVERMAN [employer] HEL[employer]-EXTRUSION DIE COORDINATOR [facility] 02-11-2023 15:17-0400 Systolic Blood Pressure Non-Invasive 137 1 HELENASHERON SILVERMAN [employer] HEL[employer]-EXTRUSION DIE COORDINATOR [facility] 02-11-2023 11:58-0400 Body temperature 97.7 [degF] HELENA SILVERMAN [employer] HEL[employer]-EXTRUSION DIE COORDINATOR [facility] 02-11-2023 11:58-0400 Diastolic Blood Pressure Non-Invasive 94 1 HELENA SILVERMAN [employer] HEL[employer]-EXTRUSION DIE COORDINATOR [facility] 02-11-2023 11:58-0400 Heart rate 68 /min HELENA SILVERMAN [employer] HEL[employer]-EXTRUSION DIE COORDINATOR [facility] 02-11-2023 11:58-0400 Reason For Taking VItal Signs HELENA SILVERMAN [employer] RE[employer]ER HELPER HAND-EXTRUSION DIE COORDINATOR [facility] 02-11-2023 11:58-0400 Respiratory rate 18 /min HELENA SILVERMAN [employer] HEL[employer]-EXTRUSION DIE COORDINATOR [facility] 02-11-2023 11:58-0400 Systolic Blood Pressure Non-Invasive 138 1 HELENA SILVERMAN [employer]ER HEL[employer] HAND-EXTRUSION DIE COORDINATOR [facility] 02-11-2023 07:52-0400 Body temperature 98.06 [degF] HELENA SILVERMAN [employer]ER HELPER HAND-EXTRUSION DIE COORDINATOR [facility] 02-11-2023 07:52-0400 Diastolic Blood Pressure Non-Invasive 82 1 HELENA SILVERMAN [employer]ER HELPER HAND-EXTRUSION DIE COORDINATOR [facility] 02-11-2023 07:52-0400 Heart rate 75 /min HELENA SILVERMAN [employer]ER HELPER HAND-EXTRUSION DIE COORDINATOR [facility] 02-11-2023 07:52-0400 Reason For Taking VItal Signs HELENA SILVERMAN [employer] RE[employer]ER HELPER HAND-EXTRUSION DIE COORDINATOR [facility] 02-11-2023 07:52-0400 Respiratory rate 18 /min HELENA SILVERMAN [employer] RE[employer]ER HELPER HAND-EXTRUSION DIE COORDINATOR [facility] 02-11-2023 07:52-0400 Systolic Blood Pressure Non-Invasive 127 1 HELENA SILVERMAN [employer]ER HELPER HAND-EXTRUSION DIE COORDINATOR [facility] 02-11-2023 05:25-0400 Respiratory rate 18 /min HELENA SILVERMAN [employer] RE[employer]ER HELPER [employer]-EXTRUSION DIE COORDINATOR [facility] 02-11-2023 01:49-0400 Body height 169.9 cm HELENA SILVERMAN [employer]ER HELPER HAND-EXTRUSION DIE COORDINATOR [facility] 02-11-2023 01:49-0400 Body weight 94.4 kg HELENA SILVERMAN [employer] HEL[employer]-EXTRUSION DIE COORDINATOR [facility] 02-11-2023 01:49-0400 Body weight 32.7 kg/m2 HELENA SILVERMAN APRN-EXTRUSION DIE COORDINATOR [facility] 02-10-2023 23:34-0400 Blood Pressure Cuff Size HELENA HERRERA [employer]-EXTRUSION DIE COORDINATOR [facility] 02-10-2023 23:34-0400 Blood Pressure Location HELENA SILVERMAN [employer]-EXTRUSION DIE COORDINATOR [facility] 02-10-2023 23:34-0400 Blood Pressure Method HELENA HERRERA [employer]ER HEL[employer]-EXTRUSION DIE COORDINATOR [facility] 02-10-2023 23:34-0400 Body height 167.6 cm HELENA HERRERA [employer]ER HELPER HAND-EXTRUSION DIE COORDINATOR [facility] 02-10-2023 23:34-0400 Body temperature 98.24 [degF] HELENA COLBYGABRIEL [employer]ER HELPER HAND-EXTRUSION DIE COORDINATOR [facility] 02-10-2023 23:34-0400 Body weight 97.7 kg HELENA SILVERMAN [employer] REPA[employer]ER HELPER HAND-EXTRUSION DIE COORDINATOR [facility] 02-10-2023 23:34-0400 Heart rate 90 /min HELENA HERRERA [employer]ING REPA[employer]ER HELPER HAND-EXTRUSION DIE COORDINATOR [facility] 02-08-2023 15:46-0400 Heart rate 97 /min [facility] Work Phone: [facility] 02-08-2023 15:46-0400 Respiratory rate 21 /min [facility] Work Phone: [facility] 02-08-2023 15:46-0400 SaO2% (BldA) [Mass fraction] 96 % [facility] Work Phone: 8(836)518-923217 [place] [address] 02-08-2023 11:06-0400 Body height 167.64 cm [facility] Work Phone: 8(338)031-825117 [place] [address] 02-08-2023 11:06-0400 Body mass index (BMI) [Ratio] 34 kg/m2 [facility] Work Phone: 4(037)144-982717 [place] [address] 02-08-2023 11:06-0400 Body temperature 96 [degF] [facility] Work Phone: 4(441)926-304217 [place] [address] 02-08-2023 11:06-0400 Body weight 95.52 kg [facility] Work Phone: 3(393)107-413117 [place] [address] 02-08-2023 11:06-0400 Diastolic blood pressure 90 mm[Hg] [facility] Work Phone: 0(367)154-480917 [place] [address] 02-08-2023 11:06-0400 Systolic blood pressure 149 mm[Hg] [facility] Work Phone: 9(701)288-715517 [place] [address] 01-25-2023 11:35-0400 Body height 167.64 cm [facility] Work Phone: 0(183)681-716617 [place] [address] 01-25-2023 11:35-0400 Body mass index (BMI) [Ratio] 35.2 kg/m2 [facility] Work Phone: 4(895)232-942817 [place] [address] 01-25-2023 11:35-0400 Body temperature 96 [degF] [facility] Work Phone: 3(170)991-654817 [place] [address] 01-25-2023 11:35-0400 Body weight 98.8 kg [facility] Work Phone: 7(787)459-717717 [place] [address] 01-25-2023 11:35-0400 Diastolic blood pressure 87 mm[Hg] [facility] Work Phone: 6(518)036-860417 [place] [address] 01-25-2023 11:35-0400 Heart rate 86 /min [facility] Work Phone: 0(016)047-198017 [place] [address] 01-25-2023 11:35-0400 Respiratory rate 14 /min [facility] Work Phone: 4(778)631-491617 [place] [address] 01-25-2023 11:35-0400 SaO2% (BldA) [Mass fraction] 100 % [facility] Work Phone: [facility] 01-25-2023 11:35-0400 Systolic blood pressure 123 mm[Hg] [facility] Work Phone: [facility] 01-24-2023 12:38-0400 Diastolic blood pressure 74 mm[Hg] Abdirizak Ramirez MD Work Phone: [facility] 01-24-2023 12:38-0400 Heart rate 70 /min Abdirizak Ramirez MD Work Phone: [facility] 01-24-2023 12:38-0400 SaO2% (BldA) [Mass fraction] 98 % Abdirizak Ramirez MD Work Phone: [facility] 01-24-2023 12:38-0400 Systolic blood pressure 129 mm[Hg] Abdirizak Ramirez MD Work Phone: [facility] 01-24-2023 12:09-0400 Respiratory rate 15 /min Abdirizak Ramirez MD Work Phone: [facility] 01-24-2023 10:28-0400 Body height 167.6 cm Abdirizak Ramirez MD Work Phone: [facility] 01-24-2023 10:28-0400 Body mass index (BMI) [Ratio] 37.12 kg/m2 Abdirizak Ramirez MD Work Phone: [facility] 01-24-2023 10:28-0400 Body temperature 97.3 [degF] Abdirizak Ramirez MD Work Phone: [facility] 01-24-2023 10:28-0400 Body weight 104.33 kg Abdirizak Ramirez MD Work Phone: [facility] 01-15-2023 15:08-0400 Body temperature 97.9 [degF] [facility] Work Phone: [facility] 01-15-2023 15:08-0400 Diastolic blood pressure 102 mm[Hg] [facility] Work Phone: 6(980)088-638617 [place] [address] 01-15-2023 15:08-0400 Heart rate 73 /min [facility] Work Phone: 7(322)837-243917 [place] [address] 01-15-2023 15:08-0400 Respiratory rate 16 /min [facility] Work Phone: 9(472)475-056617 [place] [address] 01-15-2023 15:08-0400 SaO2% (BldA) [Mass fraction] 97 % [facility] Work Phone: 5(878)904-979017 [place] [address] 01-15-2023 15:08-0400 Systolic blood pressure 168 mm[Hg] [facility] Work Phone: 8(330)951-924217 [place] [address] 01-15-2023 12:58-0400 Body height 167.64 cm [facility] Work Phone: 3(849)439-575617 [place] [address] 01-15-2023 12:58-0400 Body weight 104 kg [facility] Work Phone: 2(642)787-294717 [place] [address] 01-14-2023 16:21-0400 Body mass index (BMI) [Ratio] 37 kg/m2 [facility] Work Phone: 9(738)046-255417 [place] [address] 01-13-2023 10:20-0400 Respiratory rate 16 /min [facility] Work Phone: 2(130)910-567517 [place] [address] 01-13-2023 06:21-0400 Body mass index (BMI) [Ratio] 37.6 kg/m2 [facility] Work Phone: 6(536)074-191317 [place] [address] 01-13-2023 06:21-0400 Body temperature 97 [degF] [facility] Work Phone: 6(048)637-116517 [place] [address] 01-13-2023 06:21-0400 Body weight 105.9 kg [facility] Work Phone: 2(969)174-241817 [place] [address] 01-13-2023 06:21-0400 Diastolic blood pressure 106 mm[Hg] [facility] Work Phone: 2(942)482-086317 [place] [address] 01-13-2023 06:21-0400 Heart rate 99 /min [facility] Work Phone: [facility] 01-13-2023 06:21-0400 SaO2% (BldA) [Mass fraction] 99 % [facility] Work Phone: [facility] 01-13-2023 06:21-0400 Systolic blood pressure 169 mm[Hg] [facility] Work Phone: [facility] 01-12-2023 13:20-0400 Diastolic blood pressure 101 mm[Hg] [facility] 01-12-2023 13:20-0400 Heart rate 70 /min [facility] 01-12-2023 13:20-0400 Respiratory rate 14 /min [facility] 01-12-2023 13:20-0400 SaO2% (BldA) [Mass fraction] 98 % [facility] 01-12-2023 13:20-0400 Systolic blood pressure 143 mm[Hg] [facility] 01-12-2023 10:45-0400 Body height 167.64 cm [facility] 01-12-2023 10:45-0400 Body mass index (BMI) [Ratio] 37.6 kg/m2 [facility] 01-12-2023 10:45-0400 Body temperature 95.2 [degF] [facility] 01-12-2023 10:45-0400 Body weight 105.8 kg [facility] 01-12-2023 02:13-0400 Diastolic blood pressure 87 mm[Hg] [facility] 01-12-2023 02:13-0400 Heart rate 84 /min [facility] 01-12-2023 02:13-0400 Respiratory rate 18 /min [facility] 01-12-2023 02:13-0400 SaO2% (BldA) [Mass fraction] 99 % [facility] 01-12-2023 02:13-0400 Systolic blood pressure 141 mm[Hg] [facility] 01-11-2023 22:58-0400 Body height 167.64 cm [facility] 01-11-2023 22:58-0400 Body mass index (BMI) [Ratio] 33 kg/m2 [facility] 01-11-2023 22:58-0400 Body temperature 96.8 [degF] [facility] 01-11-2023 22:58-0400 Body weight 92.98 kg [facility] 01-10-2023 17:27-0400 Body temperature 98.78 [degF] ESSIE FROMMELT DO [facility] 01-10-2023 17:27-0400 Diastolic Blood Pressure Non-Invasive 80 1 ESSIE FROMMELT DO [facility] 01-10-2023 17:27-0400 Heart rate 78 /min ESSIE FROMMELT DO [facility] 01-10-2023 17:27-0400 Respiratory rate 16 /min ESSIE FROMInf[employer] Wireless LtdT DO [facility] 01-10-2023 17:27-0400 Systolic Blood Pressure Non-Invasive 148 1 ESSIE FROMMELT DO [facility] 01-10-2023 16:16-0400 Body temperature 98.78 [degF] ESSIE FROMMELT DO [facility] 01-10-2023 15:43-0400 Diastolic Blood Pressure Non-Invasive 89 1 ESSIE FROMMELT DO [facility] 01-10-2023 15:43-0400 Heart rate 77 /min ESSIE FROMInf[employer]T DO [facility] 01-10-2023 15:43-0400 Respiratory rate 16 /min ESSIE FROMInf[employer]T DO [facility] 01-10-2023 15:43-0400 Systolic Blood Pressure Non-Invasive 144 1 ESSIE WASHINGTONInfinity Wireless LtdT DO [facility] 01-10-2023 15:09-0400 Heart rate 74 /min ESSIE LAWLERMaya Medical [facility] 01-10-2023 14:32-0400 Respiratory rate 12 /min ESSIE LAWLERInstreet Network [facility] 01-10-2023 13:47-0400 Body temperature 98.78 [degF] [facility] 01-10-2023 13:47-0400 Diastolic Blood Pressure Non-Invasive 92 1 ESSIE LAWLERInstreet Network [facility] 01-10-2023 13:47-0400 Systolic Blood Pressure Non-Invasive 158 1 [facility] 01-09-2023 15:21-0400 Diastolic blood pressure 70 mm[Hg] [facility] 01-09-2023 15:21-0400 Heart rate 84 /min [facility] 01-09-2023 15:21-0400 Respiratory rate 16 /min [facility] 01-09-2023 15:21-0400 SaO2% (BldA) [Mass fraction] 97 % [facility] 01-09-2023 15:21-0400 Systolic blood pressure 139 mm[Hg] [facility] 01-09-2023 11:53-0400 Body height 167.64 cm [facility] 01-09-2023 11:53-0400 Body mass index (BMI) [Ratio] 41.1 kg/m2 [facility] 01-09-2023 11:53-0400 Body temperature 98.2 [degF] [facility] 01-09-2023 11:53-0400 Body weight 115.4 kg [facility] 01-07-2023 14:18-0400 Respiratory rate 14 /min [facility] 01-07-2023 12:01-0400 Diastolic blood pressure 99 mm[Hg] [facility] 01-07-2023 12:01-0400 Systolic blood pressure 154 mm[Hg] [facility] 01-07-2023 08:38-0400 Body height 167.64 cm [facility] 01-07-2023 08:38-0400 Body mass index (BMI) [Ratio] 34.5 kg/m2 [facility] 01-07-2023 08:38-0400 Body temperature 98.7 [degF] [facility] 01-07-2023 08:38-0400 Body weight 97.06 kg [facility] 01-07-2023 08:38-0400 Heart rate 82 /min [facility] 01-07-2023 08:38-0400 SaO2% (BldA) [Mass fraction] 99 % [facility] 11-19-2022 09:26-0400 Body temperature 98.7 [degF] [facility] 11-19-2022 09:26-0400 Diastolic blood pressure 81 mm[Hg] [facility] 11-19-2022 09:26-0400 Heart rate 101 /min [facility] 11-19-2022 09:26-0400 Respiratory rate 14 /min [facility] 11-19-2022 09:26-0400 SaO2% (BldA) [Mass fraction] 99 % [facility] 11-19-2022 09:26-0400 Systolic blood pressure 131 mm[Hg] [facility] 11-19-2022 09:24-0400 Body mass index (BMI) [Ratio] 39.3 kg/m2 [facility] 11-19-2022 09:24-0400 Body weight 110.5 kg [facility] 11-17-2022 08:43-0400 Body temperature 97.5 [degF] Andres Galaviz APRN.EXTRUSION DIE COORDINATOR Work Phone: [facility] 11-17-2022 08:43-0400 Body weight 110.22 kg Andres Galaviz APRN.EXTRUSION DIE COORDINATOR Work Phone: [facility] 11-17-2022 08:43-0400 Diastolic blood pressure 72 mm[Hg] Andres Galaviz APRN.EXTRUSION DIE COORDINATOR Work Phone: [facility] 11-17-2022 08:43-0400 Heart rate 108 /min [facility] [employer].EXTRUSION DIE COORDINATOR Work Phone: [facility] 11-17-2022 08:43-0400 Respiratory rate 16 /min [facility] [employer] HAND.EXTRUSION DIE COORDINATOR Work Phone: [facility] 11-17-2022 08:43-0400 SaO2% (BldA) [Mass fraction] 97 % [facility] [employer] RE[employer] HEL[employer] HAND.EXTRUSION DIE COORDINATOR Work Phone: [facility] 11-17-2022 08:43-0400 Systolic blood pressure 120 mm[Hg] [facility] SPRING REPA[employer]ER HELPER HAND.EXTRUSION DIE COORDINATOR Work Phone: [facility] 10-08-2022 08:44-0400 Body temperature 97 [degF] Shamika Athy PA-C Work Phone: [facility] 10-08-2022 08:44-0400 Body weight 109.14 kg Shamika Athy PA-C Work Phone: [facility] 10-08-2022 08:44-0400 Diastolic blood pressure 82 mm[Hg] Shamika Athy PA-C Work Phone: [facility] 10-08-2022 08:44-0400 Heart rate 94 /min Shamika Athy PA-C Work Phone: [facility] 10-08-2022 08:44-0400 Respiratory rate 16 /min Shamika Athy PA-C Work Phone: [facility] 10-08-2022 08:44-0400 SaO2% (BldA) [Mass fraction] 100 % Shamika Athy PA-C Work Phone: [facility] 10-08-2022 08:44-0400 Systolic blood pressure 112 mm[Hg] Shamika Athy PA-C Work Phone: [facility] 08-15-2022 13:46-0500 Body temperature 98.6 [degF] Dr. Sophy Gibbons Work Phone: [facility] 08-15-2022 13:46-0500 Diastolic blood pressure 95 mm[Hg] Dr. Sophy Gibbons Work Phone: 6(722)715-590917 [place] [address] 08-15-2022 13:46-0500 Heart rate 87 /min Dr. Sophy Gibbons Work Phone: 2(646)198-082217 [place] [address] 08-15-2022 13:46-0500 Respiratory rate 16 /min Dr. Sophy Gibbons Work Phone: 4(656)831-977017 [place] [address] 08-15-2022 13:46-0500 SaO2% (BldA) [Mass fraction] 99 % Dr. Sophy Gibbons Work Phone: 7(579)895-766917 [place] [address] 08-15-2022 13:46-0500 Systolic blood pressure 130 mm[Hg] Dr. Sophy Gibbons Work Phone: 8(071)278-491717 [place] [address] 08-15-2022 05:43-0500 Body weight 107.[address] Sophy Gibbons Work Phone: 4(787)683-809917 [place] [address] 08-13-2022 10:58-0500 Body height 167.[address] Sophy Gibbons Work Phone: 8(572)847-934417 [place] [address] 08-12-2022 22:34-0500 Body mass index (BMI) [Ratio] 37.9 kg/m2 Dr. Sophy Gibbons Work Phone: 6(108)340-603217 [place] [address] 08-12-2022 22:03-0500 Body temperature 98 [degF] Dr. Sophy Gibbons Work Phone: 2(940)394-395317 [place] [address] 08-12-2022 22:03-0500 Diastolic blood pressure 74 mm[Hg] Dr. Sophy Gibbons Work Phone: 9(399)378-451317 [place] [address] 08-12-2022 22:03-0500 Heart rate 82 /min Dr. Sophy Gibbons Work Phone: 4(599)816-347217 [place] [address] 08-12-2022 22:03-0500 Respiratory rate 15 /min Dr. Sophy Gibbons Work Phone: 6(370)685-118017 [place] [address] 08-12-2022 22:03-0500 SaO2% (BldA) [Mass fraction] 99 % Dr. Sophy Gibbons Work Phone: [facility] 08-12-2022 22:03-0500 Systolic blood pressure 118 mm[Hg] Dr. Sophy Gibbons Work Phone: [facility] 08-12-2022 15:27-0500 Body height 167.[address] Sophy Gibbons Work Phone: [facility] 08-12-2022 15:27-0500 Body mass index (BMI) [Ratio] 37.9 kg/m2 Dr. Sophy Gibbons Work Phone: [facility] 08-12-2022 15:27-0500 Body weight 106.[address] Sophy Gibbons Work Phone: [facility] 06-29-2022 08:39-0500 Body temperature 97.6 [degF] No Primary Care Physician [facility] 06-29-2022 08:39-0500 Diastolic blood pressure 90 mm[Hg] No Primary Care Physician [facility] 06-29-2022 08:39-0500 Heart rate 81 /min No Primary Care Physician [facility] 06-29-2022 08:39-0500 Respiratory rate 16 /min No Primary Care Physician [facility] 06-29-2022 08:39-0500 SaO2% (BldA) [Mass fraction] 99 % No Primary Care Physician [facility] 06-29-2022 08:39-0500 Systolic blood pressure 130 mm[Hg] No Primary Care Physician [facility] 06-26-2022 06:09-0500 Body height 167.64 cm No Primary Care Physician [facility] Work Phone: 06-26-2022 06:09-0500 Body mass index (BMI) [Ratio] 38.1 kg/m2 No Primary Care Physician [facility] 06-26-2022 06:09-0500 Body weight 107.1 kg No Primary Care Physician [facility] 06-25-2022 03:57-0500 Body temperature 98.1 [degF] No Primary Care Physician [facility] Work Phone: 06-25-2022 03:57-0500 Diastolic blood pressure 99 mm[Hg] No Primary Care Physician [facility] Work Phone: 06-25-2022 03:57-0500 Heart rate 96 /min No Primary Care Physician [facility] Work Phone: 06-25-2022 03:57-0500 Respiratory rate 18 /min No Primary Care Physician [facility] Work Phone: 06-25-2022 03:57-0500 SaO2% (BldA) [Mass fraction] 97 % No Primary Care Physician [facility] Work Phone: 06-25-2022 03:57-0500 Systolic blood pressure 134 mm[Hg] No Primary Care Physician [facility] Work Phone: 06-24-2022 16:48-0500 Body height 167.64 cm No Primary Care Physician [facility] Work Phone: 06-24-2022 16:48-0500 Body mass index (BMI) [Ratio] 38 kg/m2 No Primary Care Physician [facility] Work Phone: 06-24-2022 16:48-0500 Body weight 107.04 kg No Primary Care Physician [facility] Work Phone: 06-24-2022 15:30-0500 Body temperature 98.9 [degF] No Primary Care Physician [facility] Work Phone: 06-24-2022 15:30-0500 Diastolic blood pressure 99 mm[Hg] No Primary Care Physician [facility] Work Phone: 06-24-2022 15:30-0500 Heart rate 97 /min No Primary Care Physician [facility] Work Phone: 06-24-2022 15:30-0500 Respiratory rate 15 /min No Primary Care Physician [facility] Work Phone: 06-24-2022 15:30-0500 SaO2% (BldA) [Mass fraction] 100 % No Primary Care Physician [facility] Work Phone: 06-24-2022 15:30-0500 Systolic blood pressure 137 mm[Hg] No Primary Care Physician [facility] Work Phone: 06-24-2022 11:12-0500 Body height 167.64 cm No Primary Care Physician [facility] Work Phone: 06-24-2022 11:12-0500 Body mass index (BMI) [Ratio] 35.5 kg/m2 No Primary Care Physician [facility] Work Phone: 06-24-2022 11:12-0500 Body weight 99.79 kg No Primary Care Physician [facility] Work Phone: 04-09-2022 16:15-0400 Body temperature 98.2 [degF] No Primary Care Physician [facility] Work Phone: 04-09-2022 16:15-0400 Diastolic blood pressure 87 mm[Hg] No Primary Care Physician [facility] Work Phone: 04-09-2022 16:15-0400 Heart rate 89 /min No Primary Care Physician [facility] Work Phone: 04-09-2022 16:15-0400 Respiratory rate 18 /min No Primary Care Physician [facility] Work Phone: 04-09-2022 16:15-0400 SaO2% (BldA) [Mass fraction] 99 % No Primary Care Physician [facility] Work Phone: 04-09-2022 16:15-0400 Systolic blood pressure 136 mm[Hg] No Primary Care Physician [facility] Work Phone: 04-08-2022 11:30-0400 Body height 167.64 cm No Primary Care Physician [facility] Work Phone: 04-08-2022 11:30-0400 Body weight 96.6 kg No Primary Care Physician [facility] Work Phone: 04-06-2022 17:48-0400 Body mass index (BMI) [Ratio] 34.3 kg/m2 No Primary Care Physician [facility] Work Phone: 04-06-2022 15:39-0400 Body temperature 100.1 [degF] No Primary Care Physician [facility] Work Phone: 04-06-2022 15:39-0400 Diastolic blood pressure 79 mm[Hg] No Primary Care Physician [facility] Work Phone: 04-06-2022 15:39-0400 Heart rate 114 /min No Primary Care Physician [facility] Work Phone: 04-06-2022 15:39-0400 Respiratory rate 20 /min No Primary Care Physician [facility] Work Phone: 04-06-2022 15:39-0400 SaO2% (BldA) [Mass fraction] 98 % No Primary Care Physician [facility] Work Phone: 04-06-2022 15:39-0400 Systolic blood pressure 136 mm[Hg] No Primary Care Physician [facility] Work Phone: 04-06-2022 12:45-0400 Body height 167.64 cm No Primary Care Physician [facility] Work Phone: 04-06-2022 12:45-0400 Body mass index (BMI) [Ratio] 34.7 kg/m2 No Primary Care Physician [facility] Work Phone: 04-06-2022 12:45-0400 Body weight 97.5 kg No Primary Care Physician [facility] Work Phone: 04-05-2022 16:06-0400 Diastolic blood pressure 95 mm[Hg] No Primary Care Physician [facility] Work Phone: 04-05-2022 16:06-0400 Heart rate 103 /min No Primary Care Physician [facility] Work Phone: 04-05-2022 16:06-0400 Respiratory rate 16 /min No Primary Care Physician [facility] Work Phone: 04-05-2022 16:06-0400 SaO2% (BldA) [Mass fraction] 98 % No Primary Care Physician [facility] Work Phone: 04-05-2022 16:06-0400 Systolic blood pressure 127 mm[Hg] No Primary Care Physician [facility] Work Phone: 04-05-2022 11:53-0400 Body temperature 98 [degF] No Primary Care Physician [facility] Work Phone: 04-05-2022 11:50-0400 Body height 167.64 cm No Primary Care Physician [facility] Work Phone: 04-05-2022 11:50-0400 Body mass index (BMI) [Ratio] 34.4 kg/m2 No Primary Care Physician [facility] Work Phone: 04-05-2022 11:50-0400 Body weight 96.8 kg No Primary Care Physician [facility] Work Phone: 03-23-2022 12:28-0400 Body temperature 97 [degF] Sid Bravo MD Work Phone: [facility] 03-23-2022 12:28-0400 Body weight 97.07 kg Sid Bravo MD Work Phone: [facility] 03-23-2022 12:28-0400 Diastolic blood pressure 98 mm[Hg] Sid Bravo MD Work Phone: [facility] 03-23-2022 12:28-0400 Heart rate 105 /min Sid Bravo MD Work Phone: [facility] 03-23-2022 12:28-0400 Respiratory rate 20 /min Sid Bravo MD Work Phone: [facility] 03-23-2022 12:28-0400 SaO2% (BldA) [Mass fraction] 93 % Sid Bravo MD Work Phone: [facility] 03-23-2022 12:28-0400 Systolic blood pressure 130 mm[Hg] Sid Bravo MD Work Phone: [facility] 02-02-2022 09:33-0400 Body temperature 97.2 [degF] Alyssa Yeni [employer] REPA[employer].EXTRUSION DIE COORDINATOR Work Phone: [facility] 02-02-2022 09:33-0400 Body weight 92.53 kg Alyssa Yeni [employer] REPA[employer].EXTRUSION DIE COORDINATOR Work Phone: [facility] 02-02-2022 09:33-0400 Diastolic blood pressure 72 mm[Hg] Alyssa Yeni [employer]ING REPA[employer]ER HEL[employer].EXTRUSION DIE COORDINATOR Work Phone: [facility] 02-02-2022 09:33-0400 Heart rate 74 /min Alyssa Yeni [employer]ING REPA[employer]ER HEL[employer].EXTRUSION DIE COORDINATOR Work Phone: [facility] 02-02-2022 09:33-0400 Respiratory rate 16 /min Alyssa Yeni [employer] RE[employer].EXTRUSION DIE COORDINATOR Work Phone: [facility] 02-02-2022 09:33-0400 SaO2% (BldA) [Mass fraction] 99 % Alyssa Yeni [employer].EXTRUSION DIE COORDINATOR Work Phone: [facility] 02-02-2022 09:33-0400 Systolic blood pressure 120 mm[Hg] Alyssa Yeni [employer] RE[employer].EXTRUSION DIE COORDINATOR Work Phone: [facility] 02-01-2022 17:18-0400 Diastolic blood pressure 100 mm[Hg] No Primary Care Physician [facility] Work Phone: 02-01-2022 17:18-0400 Heart rate 66 /min No Primary Care Physician [facility] Work Phone: 02-01-2022 17:18-0400 Respiratory rate 18 /min No Primary Care Physician [facility] Work Phone: 02-01-2022 17:18-0400 SaO2% (BldA) [Mass fraction] 97 % No Primary Care Physician [facility] Work Phone: 02-01-2022 17:18-0400 Systolic blood pressure 145 mm[Hg] No Primary Care Physician [facility] Work Phone: 02-01-2022 12:42-0400 Body height 167.64 cm No Primary Care Physician [facility] Work Phone: 02-01-2022 12:42-0400 Body mass index (BMI) [Ratio] 32.3 kg/m2 No Primary Care Physician [facility] Work Phone: 02-01-2022 12:42-0400 Body temperature 96.3 [degF] No Primary Care Physician [facility] Work Phone: 02-01-2022 12:42-0400 Body weight 90.71 kg No Primary Care Physician [facility] Work Phone: 01-26-2022 12:31-0400 Body height 167.64 cm [facility] Work Phone: 01-26-2022 12:31-0400 Body mass index (BMI) [Ratio] 32.6 kg/m2 [facility] Work Phone: 01-26-2022 12:31-0400 Body temperature 98.4 [degF] [facility] Work Phone: 01-26-2022 12:31-0400 Body weight 91.71 kg [facility] Work Phone: 01-26-2022 12:31-0400 Diastolic blood pressure 108 mm[Hg] [facility] Work Phone: 01-26-2022 12:31-0400 Heart rate 94 /min [facility] Work Phone: 01-26-2022 12:31-0400 Respiratory rate 22 /min [facility] Work Phone: 01-26-2022 12:31-0400 SaO2% (BldA) [Mass fraction] 99 % [facility] Work Phone: 01-26-2022 12:31-0400 Systolic blood pressure 154 mm[Hg] [facility] Work Phone: 01-23-2022 18:18-0400 Diastolic blood pressure 74 mm[Hg] [facility] Work Phone: 01-23-2022 18:18-0400 Respiratory rate 18 /min [facility] Work Phone: 01-23-2022 18:18-0400 Systolic blood pressure 122 mm[Hg] [facility] Work Phone: 01-23-2022 16:02-0400 Body height 167.64 cm [facility] Work Phone: 01-23-2022 16:02-0400 Body mass index (BMI) [Ratio] 33.9 kg/m2 [facility] Work Phone: 01-23-2022 16:02-0400 Body temperature 97.6 [degF] [facility] Work Phone: 01-23-2022 16:02-0400 Body weight 95.25 kg [facility] Work Phone: 01-23-2022 16:02-0400 Heart rate 99 /min [facility] Work Phone: 01-23-2022 16:02-0400 SaO2% (BldA) [Mass fraction] 100 % [facility] Work Phone: 01-22-2022 23:45-0400 Heart rate 91 /min [facility] Work Phone: 01-22-2022 23:45-0400 Respiratory rate 16 /min [facility] Work Phone: 01-22-2022 23:45-0400 SaO2% (BldA) [Mass fraction] 98 % [facility] Work Phone: 01-22-2022 21:26-0400 Body height 167.64 cm [facility] Work Phone: 01-22-2022 21:26-0400 Body mass index (BMI) [Ratio] 33.9 kg/m2 [facility] Work Phone: 01-22-2022 21:26-0400 Body temperature 97.8 [degF] [facility] Work Phone: 01-22-2022 21:26-0400 Body weight 95.25 kg [facility] Work Phone: 01-22-2022 21:26-0400 Diastolic blood pressure 97 mm[Hg] [facility] Work Phone: 01-22-2022 21:26-0400 Systolic blood pressure 140 mm[Hg] [facility] Work Phone: 01-16-2022 14:12-0400 Body height 167.64 cm [facility] Work Phone: 01-16-2022 14:12-0400 Body mass index (BMI) [Ratio] 33.9 kg/m2 [facility] Work Phone: 01-16-2022 14:12-0400 Body temperature 96.7 [degF] [facility] Work Phone: 01-16-2022 14:12-0400 Body weight 95.3 kg [facility] Work Phone: 01-16-2022 14:12-0400 Diastolic blood pressure 93 mm[Hg] [facility] Work Phone: 01-16-2022 14:12-0400 Heart rate 130 /min [facility] Work Phone: 01-16-2022 14:12-0400 Respiratory rate 18 /min [facility] Work Phone: 01-16-2022 14:12-0400 SaO2% (BldA) [Mass fraction] 98 % [facility] Work Phone: 01-16-2022 14:12-0400 Systolic blood pressure 126 mm[Hg] [facility] Work Phone: 11-16-2021 10:09-0400 Body temperature 98.3 [degF] [facility] Work Phone: 11-16-2021 10:09-0400 Diastolic blood pressure 82 mm[Hg] [facility] Work Phone: 11-16-2021 10:09-0400 Heart rate 98 /min [facility] Work Phone: 11-16-2021 10:09-0400 Systolic blood pressure 138 mm[Hg] [facility] Work Phone: 11-16-2021 08:39-0400 Body height 167.64 cm [facility] Work Phone: 11-16-2021 08:39-0400 Body mass index (BMI) [Ratio] 34.9 kg/m2 [facility] Work Phone: 11-16-2021 08:39-0400 Body weight 98.33 kg [facility] Work Phone: 11-16-2021 08:39-0400 Respiratory rate 16 /min [facility] Work Phone: 11-16-2021 08:39-0400 SaO2% (BldA) [Mass fraction] 96 % [facility] Work Phone: 10-29-2021 12:09-0400 Diastolic blood pressure 69 mm[Hg] [facility] Work Phone: 10-29-2021 12:09-0400 Heart rate 71 /min [facility] Work Phone: 10-29-2021 12:09-0400 Respiratory rate 15 /min [facility] Work Phone: 10-29-2021 12:09-0400 SaO2% (BldA) [Mass fraction] 98 % [facility] Work Phone: 10-29-2021 12:09-0400 Systolic blood pressure 124 mm[Hg] [facility] Work Phone: 10-29-2021 08:59-0400 Body height 167.64 cm [facility] Work Phone: 10-29-2021 08:59-0400 Body mass index (BMI) [Ratio] 34.6 kg/m2 [facility] Work Phone: 10-29-2021 08:59-0400 Body temperature 96.9 [degF] [facility] Work Phone: 10-29-2021 08:59-0400 Body weight 97.4 kg [facility] Work Phone: 10-24-2021 08:30-0400 Body temperature 97.3 [degF] [facility] Work Phone: 10-24-2021 08:30-0400 Diastolic blood pressure 92 mm[Hg] [facility] Work Phone: 10-24-2021 08:30-0400 Heart rate 98 /min [facility] Work Phone: 10-24-2021 08:30-0400 Respiratory rate 16 /min [facility] Work Phone: 10-24-2021 08:30-0400 SaO2% (BldA) [Mass fraction] 100 % [facility] Work Phone: 10-24-2021 08:30-0400 Systolic blood pressure 148 mm[Hg] [facility] Work Phone: 10-24-2021 08:18-0400 Body height 167.64 cm [facility] Work Phone: 10-24-2021 08:18-0400 Body mass index (BMI) [Ratio] 33.7 kg/m2 [facility] Work Phone: 10-24-2021 08:18-0400 Body weight 95 kg [facility] Work Phone: 08-10-2021 23:58-0500 Heart rate 107 /min [facility] Work Phone: 08-10-2021 23:58-0500 Respiratory rate 18 /min [facility] Work Phone: 08-10-2021 23:58-0500 SaO2% (BldA) [Mass fraction] 100 % [facility] Work Phone: 08-10-2021 22:57-0500 Diastolic blood pressure 88 mm[Hg] [facility] Work Phone: 08-10-2021 22:57-0500 Systolic blood pressure 125 mm[Hg] [facility] Work Phone: 08-10-2021 21:32-0500 Body mass index (BMI) [Ratio] 35.5 kg/m2 [facility] Work Phone: 08-10-2021 21:32-0500 Body temperature 97.6 [degF] [facility] Work Phone: 08-10-2021 21:32-0500 Body weight 99.79 kg [facility] Work Phone: Encounters Encounter Date Encounter Type Care Provider Facility Start: 02-15-2025 ambulatory Amy Radford in [facility] Facility:[facility] Start: 01-11-2025 ambulatory Amy Radford in [facility] Facility:[facility] Start: 12-30-2024 Non-patient / Non-visit Dr. Dwaine Bain MD -[facility] Work Phone: Start: 12-30-2024 End: 12-31-2024 Evaluation and management of inpatient Dr. David Bain MD -Intensive Care Unit Work Phone: Start: 12-25-2024 End: 12-25-2024 ambulatory Amy Solorzano GRIZZLYMAN-C Work Phone: [facility] Work Phone: Start: 12-25-2024 End: 12-25-2024 Patient encounter procedure Nayana Peter PA -Ultrasound [facility] Work Phone: Start: 12-25-2024 End: 12-25-2024 ambulatory Amy Solorzano [facility] Facility:[facility] Start: 12-13-2024 End: 12-13-2024 ambulatory Amy Solorzano GRIZZLYMAN-C Work Phone: [facility] Work Phone: Start: 12-13-2024 End: 12-13-2024 Patient encounter procedure Nayana GRADY -Laboratory Work Phone: Start: 12-13-2024 End: 12-13-2024 Patient encounter procedure Nayana GRADY -[facility] Work Phone: Start: 12-13-2024 End: 12-13-2024 ambulatory Amy Solorzano GRIZZLYMAN-C Work Phone: [facility] Work Phone: Start: 12-13-2024 End: 12-13-2024 ambulatory Nayana Peter Facility:[facility] Start: 11-28-2024 Non-patient / Non-visit Dr. Gale Lr DO -[facility] Work Phone: Start: 11-28-2024 Non-patient / Non-visit Clare Loo PA-C -[facility] Start: 11-27-2024 Non-patient / Non-visit Clare Loo PA-C -[facility] Start: 11-26-2024 Non-patient / Non-visit Dr. Clair Rao MD -[facility] Work Phone: Start: 11-26-2024 Non-patient / Non-visit Dr. Fahad Welch MD -[facility] Start: 11-25-2024 Non-patient / Non-visit Dr. Fahad Welch MD -[facility] Start: 11-25-2024 ambulatory Brenda Rao Facility :[facility] Start: 11-25-2024 End: 11-28-2024 Evaluation and management of inpatient Dr. Brenda Rao MD -Medical Surgical 3 Work Phone: Start: 10-26-2024 ambulatory Abdirizak Forrest Facility: [facility] Start: 10-25-2024 End: 10-25-2024 ambulatory Amy Solorzano GRIZZLYMAN-C Work Phone: [facility] Work Phone: Start: 10-25-2024 End: 10-25-[address] Abdirizak Forrest DPM -Cardiovascular Services Work Phone: Start: 10-25-2024 End: 10-25-2024 ambulatory Abdirizak Forrest Facility:[facility] Start: 10-17-2024 End: 10-17-2024 ambulatory Amy Solorzano GRIZZLYMAN-C Work Phone: [facility] Work Phone: Start: 10-17-2024 End: 10-17-2024 Patient encounter procedure [facility] Amy Solorzano NP-C -Laboratory, Sophy Gibbons Start: 10-17-2024 End: 10-17-2024 ambulatory [facility] Facility:[facility] Start: 07-03-2024 End: 07-03-2024 Patient encounter procedure Irais GRADY Work Phone: [facility] Comment on above: Acute cough (Primary Dx) Start: 07-03-2024 End: 07-03-2024 [facility] Facility:[facility] Start: 07-03-2024 End: 07-03-2024 Subsequent hospital visit by physician Santiago [facility] Work Phone: Radiology Comment on above: Acute cough [R05.1] Start: 06-26-2024 End: 06-26-2024 [facility] Start: 06-26-2024 End: 06-26-2024 Office outpatient visit 25 minutes Frantz Arevalo PA-C Work Phone: [facility] Comment on above: Bronchopneumonia (Pr imary Dx); Mild intermittent asthma, uncomplicated Start: 04-25-2024 End: 04-25-2024 ambulatory [facility] Facility:[facility] Start: 11-08-2023 End: 11-08-2023 ambulatory [facility] Work Phone: Start: 11-08-2023 End: 11-08-2023 Patient encounter procedure [facility] Work Phone: Start: 07-23-2023 End: 07-23-2023 Admission to same day surgery center [facility] Start: 07-23-2023 End: 07-23-2023 ambulatory No Primary Care Physician [facility] Work Phone: Start: 07-23-2023 End: 07-23-2023 No Primary Care Physician [facility] Start: 07-12-2023 End: 07-12-2023 No Primary Care Physician [facility]-Emergency Department Work Phone: Start: 07-02-2023 End: 07-02-2023 Emergency department patient visit No Primary Care Physician [facility] Work Phone: Start: 07-02-2023 End: 07-02-2023 No Primary Care Physician [facility]-Emergency Department Work Phone: Start: 07-01-2023 End: 07-01-2023 Office outpatient visit 15 minutes Andres aGlaviz APRN.EXTRUSION DIE COORDINATOR Work Phone: [facility] Comment on above: Pain of right eye (P rimary Dx) Start: 06-30-2023 End: 06-30-2023 No Primary Care Physician [facility]-Emergency Department Work Phone: Start: 06-28-2023 End: 06-28-2023 Emergency department patient visit No Primary Care Physician [facility]-Emergency Department Work Phone: Start: 06-28-2023 End: 06-28-2023 No Primary Care Physician [facility]-Emergency Department Work Phone: Start: 06-27-2023 End: 06-27-2023 Emergency department patient visit No Primary Care Physician [facility]-Emergency Department Work Phone: Start: 06-27-2023 End: 06-27-2023 No Primary Care Physician [facility]-Emergency Department Work Phone: Start: 06-26-2023 End: 06-26-2023 Emergency department patient visit No Primary Care Physician [facility]-Emergency Department Work Phone: Start: 06-26-2023 End: 06-26-2023 No Primary Care Physician [facility]-Emergency Department Work Phone: Start: 06-25-2023 End: 06-25-2023 Emergency department patient visit No Primary Care Physician [facility]-Emergency Department Work Phone: Start: 06-25-2023 End: 06-25-2023 No Primary Care Physician [facility]-Emergency Department Work Phone: Start: 05-18-2023 End: 05-18-2023 ambulatory No Primary Care Physician [facility] Work Phone: Start: 05-18-2023 End: 05-18-2023 Patient encounter procedure No Primary Care Physician [facility]-Laboratory, Specimen Work Phone: Start: 05-18-2023 End: 05-18-2023 No Primary Care Physician [facility]-Laboratory, Specimen Work Phone: Start: 05-09-2023 Non-patient / Non-visit No Kristina cormier Care Physician [facility] Work Phone: Start: 05-09-2023 [facility] Work Phone: [facility] Work Phone: Start: 05-08-2023 Non-patient / Non-visit No Kristina cormier Care Physician [facility] Work Phone: Start: 05-08-2023 [facility] Work Phone: [facility] Work Phone: Start: 05-07-2023 Non-patient / Non-visit No Kristina cormier Care Physician [facility] Work Phone: Start: 05-07-2023 [facility] Work Phone: [facility] Work Phone: Start: 05-06-2023 Non-patient / Non-visit No Kristina cormier Care Physician [facility] Work Phone: Start: 05-06-2023 [facility] Work Phone: [facility] Work Phone: Start: 05-05-2023 Non-patient / Non-visit No Kristina cormier Care Physician [facility] Work Phone: Start: 05-05-2023 [facility] Work Phone: [facility] Work Phone: Start: 05-04-2023 End: 05-09-2023 Evaluation and management of inpatient [facility] Work Phone: [facility] Work Phone: Start: 05-04-2023 End: 05-09-2023 [facility] Work Phone: [facility]-Medical Surgical 3 Work Phone: Start: 05-04-2023 ambulatory [facility] Work Phone: [facility] Work Phone: Start: 05-04-2023 [facility] Work Phone: [facility] Work Phone: Start: 05-04-2023 Non-patient / Non-visit No Kristina cormier Care Physician [facility] Work Phone: Start: 05-04-2023 [facility] Work Phone: [facility] Work Phone: Start: 04-15-2023 End: 04-15-2023 Emergency department patient visit No Primary Care Physician [facility]-Emergency Department Work Phone: Start: 04-15-2023 End: 04-15-2023 [facility] Work Phone: [facility]-Emergency Department Work Phone: Start: 04-15-2023 End: 04-15-2023 Patient encounter procedure Abdirizak Peña APRN.EXTRUSION DIE COORDINATOR Work Phone: [facility] Comment on above: SOB (shortness of br eath) (Primary Dx); Abdominal pain, unspecified abdominal location Start: 04-14-2023 End: 04-14-2023 Emergency department [facility] Start: 04-14-2023 End: 04-14-2023 [facility] Work Phone: [facility]-Emergency Department Work Phone: Start: 04-13-2023 End: 04-13-2023 Emergency department patient visit No Primary Care Physician [facility]-Emergency Department Work Phone: Start: 04-13-2023 End: 04-13-2023 [facility] Work Phone: [facility]-Emergency Department Work Phone: Start: 03-26-2023 ambulatory No Pcp ROSA Ruiz [employer] Start: 03-12-2023 Orders Only Pilar holm APRN.EXTRUSION DIE COORDINATOR Work Phone: [facility] Comment on above: Chronic abdominal pa in (Primary Dx) Start: 03-10-2023 Telephone encounter Amy redding NP Work Phone: [facility] Comment on above: Follow Up (Post Disc harge F/U - 1st attempt made. No answer./) Start: 03-09-2023 Telephone encounter Pilar barrios APRN.EXTRUSION DIE COORDINATOR Work Phone: [facility] Comment on above: Consult Start: 03-06-2023 End: 03-06-2023 Emergency department patient visit [facility] Work Phone: [facility] Work Phone: Start: 03-06-2023 End: 03-06-2023 [facility] Work Phone: [facility]-Emergency Department Work Phone: Start: 03-02-2023 ambulatory No Pcp [employer] George Mcdonnell Start: 03-02-2023 Telephone encounter Almita lara PA-C Work Phone: [facility] Adult Comment on above: Appointment Start: 03-01-2023 End: 03-04-2023 Evaluation and management of inpatient [facility] Facility:[facility] Start: 03-01-2023 End: 03-01-2023 Patient encounter procedure Dewayne Doran MD Work Phone: Gastroenterology Comment on above: Vomiting, unspecifie d vomiting type, unspecified whether nausea present (Primary Dx); Chronic nausea Start: 02-25-2023 End: 02-26-2023 Emergency department patient visit [facility] Work Phone: [facility] Work Phone: Start: 02-25-2023 End: 02-26-2023 [facility] Work Phone: [facility]-Emergency Department Work Phone: Start: 02-24-2023 End: 02-24-2023 Emergency department patient visit No Primary Care Physician [facility]-Emergency Department Work Phone: Start: 02-24-2023 End: 02-24-2023 [facility] Work Phone: [facility]-Emergency Department Work Phone: Start: 02-23-2023 End: 02-23-2023 Patient encounter procedure Pilar Magdaleno [employer].[facility] Work Phone: [facility] [place] Comment on above: Chronic nausea (Prim crystal Dx); Chronic abdominal pain Start: 02-17-2023 End: 02-18-2023 Emergency department patient visit DEWAYNE BRAGA 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 HAND-EXTRUSION DIE COORDINATOR [facility] Start: 02-08-2023 End: 02-08-2023 Emergency department [facility] Start: 02-08-2023 End: 02-08-2023 [facility] Start: 02-04-2023 End: 02-04-2023 Patient encounter procedure Irais GRADY Work Phone: [facility] Comment on above: Generalized abdomina l pain (Primary Dx) Start: 02-04-2023 End: 02-04-2023 Emergency department [facility] Start: 02-04-2023 End: 02-04-2023 [facility]: Start: 01-25-2023 End: 01-25-2023 Emergency department patient visit [facility] Start: 01-25-2023 End: 01-25-2023 [facility] Start: 01-24-2023 End: 01-24-2023 Emergency department patient visit ABDIRIZAK RAMIREZ [facility] Start: 01-24-2023 End: 01-24-2023 Emergency department patient visit Abdirizak Ramirez MD Work Phone: [facility] Comment on above: Nausea and vomiting, unspecified vomiting type (Primary Dx); Syncope and collapse Start: 01-17-2023 End: 01-17-2023 Emergency department patient visit GERALDINE ROLAND [facility] Start: 01-15-2023 Non-patient / Non-visit [facility] Work Phone: [facility] Work Phone: Start: 01-15-2023 [facility] Work Phone: [facility] Work Phone: Start: 01-14-2023 End: 01-15-2023 Evaluation and management of inpatient [facility] Work Phone: [facility] Work Phone: Start: 01-14-2023 End: 01-15-2023 observation encounter [facility] Work Phone: [facility] Work Phone: Start: 01-14-2023 End: 01-15-2023 [facility] Work Phone: [facility] Work Phone: Start: 01-13-2023 End: 01-13-2023 Emergency department patient visit [facility] Work Phone: [facility] Work Phone: Start: 01-13-2023 End: 01-13-2023 [facility] Work Phone: [facility] Work Phone: Start: 01-12-2023 End: 01-12-2023 Emergency department patient visit [facility] Work Phone: Start: 01-12-2023 End: 01-12-2023 [facility] Work Phone: [facility] Work Phone: Start: 01-11-2023 End: 01-12-2023 Emergency department patient visit [facility] Work Phone: Start: 01-11-2023 End: 01-12-2023 [facility] Work Phone: [facility] Work Phone: Start: 01-10-2023 End: 01-10-2023 Emergency department patient visit ESSIE DOWNS DO Facility:B Start: 01-10-2023 End: 01-10-2023 Emergency department patient visit ESSIE DOWNS DO [facility] Start: 01-09-2023 End: 01-09-2023 Emergency department patient visit [facility] Work Phone: Start: 01-09-2023 End: 01-09-2023 [facility] Work Phone: [facility] Work Phone: Start: 01-07-2023 End: 01-07-2023 Emergency department patient visit [facility] Work Phone: Start: 01-07-2023 End: 01-07-2023 [facility] Work Phone: [facility] Work Phone: Start: 11-25-2022 End: 11-25-2022 ambulatory [facility] Work Phone: [facility] Work Phone: Start: 11-25-2022 End: 11-25-2022 Patient encounter procedure [facility] Work Phone: Start: 11-25-2022 End: 11-25-2022 [facility] Work Phone: [facility] Work Phone: Start: 11-19-2022 End: 11-19-2022 [facility] Start: 11-19-2022 End: 11-19-2022 [facility] Work Phone: [facility] Work Phone: Start: 11-17-2022 End: 11-17-2022 Office outpatient visit 25 minutes Andres Galaviz APRN.CNP Work Phone: [facility] Comment on above: Facial infection (Pr imary Dx) Start: 10-11-2022 Telephone encounter Irais GRADY Work Phone: [facility] Comment on above: Results Start: 10-08-2022 End: 10-08-2022 Patient encounter procedure Shamika Goins PA-C Work Phone: [facility] Comment on above: Toe infection (Prima ry Dx); Facial infection; History of MRSA infection Start: 08-14-2022 Non-patient / Non-visit Dr. Jessica Gibbons Work Phone: [facility] Start: 08-13-2022 Non-patient / Non-visit Dr. Jessica Gibbons Work Phone: [facility] Start: 08-12-2022 Non-patient / Non-visit Dr. Jessica Gibbons Work Phone: [facility] Start: 08-12-2022 End: 08-15-2022 Evaluation and management of inpatient Dr. Sophy Gibbons Work Phone: [facility] Start: 06-29-2022 Non-patient / Non-visit No Kristina cormier Care Physician [facility] Start: 06-28-2022 Non-patient / Non-visit No Kristina cormier Care Physician [facility] Start: 06-27-2022 Non-patient / Non-visit No Kristina cormier Care Physician [facility] Start: 06-26-2022 Non-patient / Non-visit No Kristina cormier Care Physician [facility] Start: 06-25-2022 Non-patient / Non-visit No Kristina cormier Care Physician [facility] Start: 06-24-2022 End: 06-29-2022 Evaluation and management of inpatient No Primary Care Physician [facility] Start: 06-23-2022 End: 06-23-2022 ambulatory No Primary Care Physician [facility] Work Phone: Start: 06-23-2022 End: 06-23-2022 Patient encounter procedure No Primary Care Physician [facility], Specimen Start: 05-07-2022 End: 05-07-2022 ambulatory No Primary Care Physician [facility] Work Phone: Start: 05-07-2022 End: 05-07-2022 Patient encounter procedure No Primary Care Physician [facility] Start: 04-20-2022 End: 04-20-2022 ambulatory No Primary Care Physician [facility] Work Phone: Start: 04-20-2022 End: 04-20-2022 Departed Referred No Primary Care Physician [place] [id number] Start: 04-20-2022 Registered Referred No Primary Care Physician [place] [id number] Start: 04-13-2022 End: 04-13-2022 ambulatory No Primary Care Physician [facility] Work Phone: Start: 04-13-2022 End: 04-13-2022 Departed Referred No Primary Care Physician [place] [id number] Start: 04-13-2022 Registered Referred No Primary Care Physician [place] [id number] Start: 04-10-2022 End: 04-10-2022 ambulatory No Primary Care Physician [facility] Work Phone: Start: 04-10-2022 End: 04-10-2022 Departed Referred No Primary Care Physician [facility] Start: 04-09-2022 Non-patient / Non-visit No Kristina cormier Care Physician [facility] Start: 04-08-2022 Non-patient / Non-visit No Kristina cormier Care Physician [facility] Start: 04-07-2022 Non-patient / Non-visit No Kristina cormier Care Physician [facility] Start: 04-06-2022 Non-patient / Non-visit No Kristina casa Care Physician [facility] Start: 04-06-2022 End: 04-09-2022 Evaluation and management of inpatient No Primary Care Physician [facility] Start: 04-05-2022 End: 04-05-2022 Emergency department patient visit No Primary Care Physician [facility] Start: 03-23-2022 End: 03-23-2022 Subsequent hospital visit by physician Santiago [facility] Work Phone: Radiology Comment on above: Acute cough [R05.1] Start: 03-23-2022 End: 03-23-2022 Patient encounter procedure Sid Bravo MD Work Phone: [facility] Comment on above: Acute cough (Primary Dx); Mild intermittent asthmatic bronchitis without complication Start: 02-16-2022 End: 02-16-2022 Patient encounter procedure No Primary Care Physician [facility] Start: 02-02-2022 End: 02-02-2022 Patient encounter procedure Alyssa Jaime APRN.CNP Work Phone: [facility] Comment on above: Abnormal lung scan ( Primary Dx); Nausea and vomiting, unspecified vomiting type Start: 02-01-2022 End: 02-01-2022 Emergency department patient visit No Primary Care Physician [facility] Start: 01-30-2022 End: 01-30-2022 Patient encounter procedure No Primary Care Physician [facility] Start: 01-30-2022 End: 01-30-2022 Patient encounter procedure No Primary Care Physician [facility] Start: 01-26-2022 End: 01-26-2022 Emergency department patient visit [facility] Start: 01-23-2022 End: 01-23-2022 Emergency department patient visit [facility] Start: 01-22-2022 End: 01-22-2022 Emergency department patient visit [facility] Start: 01-16-2022 End: 01-16-2022 Emergency department patient visit [facility] Start: 11-16-2021 End: 11-16-2021 [facility] Start: 10-29-2021 End: 10-29-2021 [facility] Start: 10-24-2021 End: 10-24-2021 [facility] Start: 08-10-2021 End: 08-11-2021 [facility] Start: 05-15-2021 End: 05-15-2021 Subsequent hospital visit by physician Xr [facility] Work Phone: Radiology Comment on above: Cough [R05.9] Procedures Date Procedure Procedure Detail Performing Clinician Start: 12-31-2024 Estimated creatinine clearance Amy Solorzano GRIZZLYMAN-C Work Phone: Start: 12-30-2024 Methadone measurement, urine Amy Solorzano GRIZZLYMAN-C Work Phone: Start: 12-30-2024 Urnls dip stick/tabl et reagent auto microscopy Amy Rashad GRIZZLYMAN-C Work Phone: Start: 12-30-2024 Estimated creatinine clearance Amy Rashad GRIZZLYMAN-C Work Phone: Start: 12-30-2024 Osmolality measureme nt, serum Amy Solorzano GRIZZLYMAN-C Work Phone: Start: 12-30-2024 Serum inorganic phos phate measurement Amy Solorzano GRIZZLYMAN-C Work Phone: Start: 12-25-2024 Ultrasonography of abdomen Amy Rashad GRIZZLYMAN-C Work Phone: Start: 11-28-2024 Estimated creatinine clearance Amy Rashad GRIZZLYMAN-C Work Phone: Start: 11-27-2024 Computed tomography of abdomen and pelvis with contrast Amy Rashad GRIZZLYMAN-C Work Phone: Start: 11-26-2024 Plain X-ray abdomen Glendy yvette Solorzano GRIZZLYMAN-C Work Phone: Start: 11-25-2024 Blood culture Amykeiko kim GRIZZLYMAN-C Work Phone: Start: 11-25-2024 Computed tomography of abdomen and pelvis with intravenous contrast Amy Solorzano GRIZZLYMAN-C Work Phone: Start: 11-25-2024 Urnls dip stick/tabl et reagent auto microscopy Amy Solorzano GRIZZLYMAN-C Work Phone: Start: 11-25-2024 Plain X-ray abdomen Glendy Solorzano GRIZZLYMAN-C Work Phone: Start: 11-25-2024 Estimated creatinine clearance Amy Solorzano GRIZZLYMAN-C Work Phone: Start: 10-17-2024 Vitamin D, 25-hydrox y measurement Amy Solorzano GRIZZLYMAN-C Work Phone: Comment on above: Vitamin D [...] Care Physician Start: 05-18-2023 Mycology culture No [facility] Physician Start: 05-08-2023 Plain X-ray abdomen [facility] Work Phone: Start: 05-07-2023 Incision and drainag e of abscess [facility] Work Phone: Start: 05-04-2023 MRI of lower extremity [facility] Work Phone: Start: 05-04-2023 Incision and drainag e of abscess [facility] Work Phone: Start: 05-04-2023 Anaerobic microbial culture No Primary Care Physician Start: 05-04-2023 Bacteria identified in Blood by Culture No Primary Care Physician Start: 05-04-2023 Fungus stain method No Primary Care Physician Start: 05-04-2023 Investigation of tra nsfusion reaction [facility] Work Phone: Start: 05-04-2023 Microbial culture, routine [facility] Work Phone: Start: 05-04-2023 Mycology culture No [facility] Physician Start: 05-04-2023 [facility] Work Phone: Start: 05-04-2023 X-ray of both feet [facility] Work Phone: Start: 03-06-2023 Computed tomography of abdomen and pelvis with contrast [facility] Work Phone: Start: 03-06-2023 X-ray of both feet [facility] Work Phone: Start: 02-26-2023 Computed tomography of abdomen and pelvis with intravenous contrast [facility] Work Phone: Start: 02-24-2023 Plain X-ray of toe [facility] Work Phone: Start: 02-17-2023 Urinalysis DEWAYNE Mendoza Comment on above: Result Comment: URIN ALYSIS Performed By: #### [id number] #### [facility],[address] [place] [address] Start: 02-08-2023 Computed tomography of abdomen and pelvis with contrast [facility] Work Phone: Start: 01-24-2023 Ecg routine ecg [...] Comment: URIN ALYSIS Performed By: #### [id number] #### 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 Work Phone: Acid fast bacilli culture Dr [...] of 2) Zoster Vaccines (1 of 2) [facility] Start: 12-31-2024 Following clinical pathway protocol [facility] Start: 12-31-2024 Patient discharge [facility] Start: 12-30-2024 [facility] Start: 12-30-2024 Bacteria identified in Urine by Culture Urine Culture [facility] Start: 12-30-2024 Assessment of risk of venous thromboembolism [facility] Start: 12-30-2024 Continuous pulse oximetry [facility] Start: 12-30-2024 End: 12-30-2024 Following clinical pathway protocol [facility] Start: 12-30-2024 Incentive spirometry [facility] Start: 12-30-2024 Insertion of catheter into peripheral vein [facility] Start: 12-30-2024 Lab findings surveillance [facility] Start: 12-30-2024 Measuring intake and output [facility] Start: 12-30-2024 Notification of physician [facility] Start: 12-30-2024 Oxygen therapy [facility] Start: 12-30-2024 Patient education [facility] Start: 12-30-2024 Providing care according to standard [facility] Start: 12-30-2024 Vital signs measurements [facility] Start: 12-30-2024 [facility] Start: 12-30-2024 Verification routine [facility] Start: 12-30-2024 Hospital admission, emergency, from emergency room, medical nature [facility] Start: 12-30-2024 Admission procedure [facility] Start: 12-30-2024 End: 12-31-2024 [facility] Start: 12-30-2024 Osmolality measurement, serum [facility] Start: 12-30-2024 Serum inorganic phosphate measurement [facility] Start: 12-30-2024 Patient referral to dietitian [facility] Start: 11-28-2024 Patient discharge [facility] Start: 11-28-2024 [facility] Start: 11-26-2024 End: 11-27-2024 [facility] Start: 11-26-2024 Inhalation therapy procedure [facility] Start: 11-25-2024 Following clinical pathway protocol [facility] Start: 11-25-2024 Assessment of risk of venous thromboembolism [facility] Start: 11-25-2024 Care regimes management [facility] Start: 11-25-2024 Insertion of catheter into peripheral vein [facility] Start: 11-25-2024 Notification of physician [facility] Start: 11-25-2024 Providing care according to standard [facility] Start: 11-25-2024 Provision of activity privileges [facility] Start: 11-25-2024 Referral to general surgeon [facility] Start: 11-25-2024 Referral to occupational therapist [facility] Start: 11-25-2024 Referral to service [facility] Start: 11-25-2024 End: 11-25-2024 [facility] Start: 11-25-2024 Hospital admission, emergency, from emergency room, medical nature [facility] Start: 11-25-2024 Bacteria identified in Blood by Culture Blood Culture [facility] Start: 11-25-2024 Blood culture Blood Culture [facility] Start: 11-25-2024 Admission procedure [facility] Start: 11-25-2024 Verification routine [facility] Start: 11-25-2024 [facility] Start: 03-12-2024 Covid-19 Vaccine () Covid-19 Vaccine () [facility] Start: 03-12-2024 Influenza vaccination Influenza Vaccine (#1) [facility] Start: 02-24-2024 ANNUAL PCP TEAM CHRONIC DISEASE VISIT ANNUAL PCP TEAM CHRONIC DISEASE VISIT [facility] Start: 01-12-2024 Hemoglobin A1c measurement HbA1C [facility] Start: 07-23-2023 Amputation foot transmetarsal AMPUTATION THRU METATARSAL [facility] Start: 07-23-2023 Anes open proc bones lower leg/ankle/foot nos ANESTH LOWER LEG BONE SURG [facility] Start: 07-23-2023 Injection aa&/strd sciatic nerve NJX AA&/STRD SCIATIC NRV IMG [facility] Start: 07-23-2023 Musc myocutaneous/fasciocutaneous flap lxtr MUSCLE-SKIN GRAFT LEG [facility] Start: 07-23-2023 Smr prim src gram/giemsa stain bct fungi/cell SMEAR GRAM STAIN [facility] Start: 07-23-2023 [facility] Start: 07-23-2023 Patient discharge [facility] Start: 07-23-2023 X-ray of both feet [facility] Start: 07-23-2023 XR Foot GE 3 Views [facility] Start: 07-12-2023 [facility] Start: 06-28-2023 [facility] Start: 06-27-2023 [facility] Start: 06-27-2023 Blood chemistry [facility] Start: 06-26-2023 [facility] Start: 06-25-2023 [facility] Start: 05-21-2023 Hemoglobin A1c measurement HbA1C [facility] Start: 05-21-2023 Hemoglobin A1c/Hemoglobin.total in Blood HBA1C [facility] Start: 05-18-2023 Anaerobic microbial culture Anaerobic Culture [facility] Start: 05-18-2023 [facility] Start: 05-09-2023 Patient discharge [facility] Start: 05-08-2023 Inhalation therapy procedure [facility] Start: 05-07-2023 [facility] Start: 05-04-2023 [facility] Start: 05-04-2023 Ambulation without limitation [facility] Start: 05-04-2023 Assessment of risk of venous thromboembolism [facility] Start: 05-04-2023 Care regimes management [facility] Start: 05-04-2023 Consultation for treatment [facility] Start: 05-04-2023 Insertion of catheter into peripheral vein [facility] Start: 05-04-2023 Notification of physician [facility] Start: 05-04-2023 Patient referral to dietitian [facility] Start: 05-04-2023 Providing care according to standard [facility] Start: 05-04-2023 [facility] Start: 05-04-2023 Following clinical pathway protocol [facility] Start: 05-04-2023 Incision and drainage of abscess [facility] Start: 05-04-2023 Admission procedure [facility] Start: 05-04-2023 Hospital admission, emergency, from emergency room, medical nature [facility] Start: 05-04-2023 End: 05-04-2023 Blood culture [facility] Start: 05-04-2023 End: 05-04-2023 [facility] Start: 05-04-2023 [facility] Start: 04-15-2023 [facility] Start: 03-12-2023 Covid-19 Vaccine ( season) Covid-19 Vaccine () [facility] Start: 03-12-2023 Influenza vaccination [facility] Start: 01-25-2023 Blood chemistry [facility] Start: 01-25-2023 Computed tomography of abdomen and pelvis with intravenous contrast Abdomen/Pelvis W IV Cont ONLY [facility] Start: 01-25-2023 Electrocardiographic procedure [facility] Start: 01-25-2023 Lipase measurement [facility] Start: 01-25-2023 [facility] Start: 01-19-2023 [facility] Start: 01-18-2023 [facility] Start: 01-17-2023 [facility] Start: 01-16-2023 [facility] Start: 01-15-2023 Patient discharge [facility] Start: 01-14-2023 Referral to service [facility] Start: 01-14-2023 Assessment of risk of venous thromboembolism [facility] Start: 01-14-2023 Care regimes management [facility] Start: 01-14-2023 Insertion of catheter into peripheral vein [facility] Start: 01-14-2023 Measuring intake and output [facility] Start: 01-14-2023 Patient referral to dietitian [facility] Start: 01-14-2023 Providing care according to standard [facility] Start: 01-14-2023 Provision of activity privileges [facility] Start: 01-14-2023 [facility] Start: 01-14-2023 Following clinical pathway protocol [facility] Start: 01-14-2023 Verification routine [facility] Start: 01-14-2023 Admission procedure [facility] Start: 01-12-2023 US Gallbladder [facility] Start: 01-12-2023 US Pelvis transvaginal [facility] Start: 10-08-2022 End: 12-08-2022 Bacteria identified in Wound by Culture ABSCESS AND WOUND CULTURE WITH GRAM STAIN Microbiology Routine Toe infection Expected: 10/08/2022, Expires: 12/08/2022 [facility] Work Phone: Comment on above: Expected: 10/08/2022, Expires: Start: 08-15-2022 Patient discharge [facility] Start: 08-14-2022 Provision of activity privileges [facility] Start: 08-13-2022 End: 08-13-2022 Blood culture [facility] Start: 08-13-2022 [facility] Start: 08-13-2022 Inhalation therapy procedure [facility] Start: 08-12-2022 Following clinical pathway protocol [facility] Start: 08-12-2022 Assessment of risk of venous thromboembolism [facility] Start: 08-12-2022 Care regimes management [facility] Start: 08-12-2022 Insertion of catheter into peripheral vein [facility] Start: 08-12-2022 Measuring intake and output [facility] Start: 08-12-2022 Notification of physician [facility] Start: 08-12-2022 Providing care according to standard [facility] Start: 08-12-2022 Provision of activity privileges [facility] Start: 08-12-2022 [facility] Start: 08-12-2022 Admission procedure [facility] Start: 08-12-2022 [facility] Start: 08-12-2022 Patient referral to dietitian [facility] Start: 07-12-2022 DEPRESSION ASSESSMENT DEPRESSION ASSESSMENT [facility] Start: 06-30-2022 Blood chemistry [facility] Work Phone: Start: 06-29-2022 Patient discharge [facility] Start: 06-29-2022 Blood chemistry [facility] Work Phone: Start: 06-28-2022 Blood chemistry [facility] Work Phone: Start: 06-27-2022 Blood chemistry [facility] Work Phone: Start: 06-26-2022 Wound care [facility] Start: 06-26-2022 Elevation of affected extremity [facility] Start: 06-26-2022 [facility] Start: 06-26-2022 Debridement Debridement Wound (Right) [facility] Work Phone: Start: 06-26-2022 Blood chemistry [facility] Work Phone: Start: 06-25-2022 Referral to service [facility] Start: 06-25-2022 Consultation [facility] Start: 06-24-2022 Assessment of risk of venous thromboembolism [facility] Start: 06-24-2022 Care regimes management [facility] Start: 06-24-2022 Consultation for treatment [facility] Start: 06-24-2022 Insertion of catheter into peripheral vein [facility] Start: 06-24-2022 Providing care according to standard [facility] Start: 06-24-2022 Provision of activity privileges [facility] Start: 06-24-2022 Referral to occupational therapist [facility] Start: 06-24-2022 Referral to banana carrier [facility] Start: 06-24-2022 Referral to service [facility] Start: 06-24-2022 [facility] Start: 06-24-2022 Following clinical pathway protocol [facility] Start: 06-24-2022 End: 06-25-2022 [facility] Start: 06-24-2022 Verification routine [facility] Work Phone: Start: 06-24-2022 Admission procedure [facility] Start: 06-24-2022 End: 06-24-2022 Blood culture [facility] Work Phone: Start: 06-24-2022 Patient referral to dietitian [facility] Start: 06-23-2022 Cul bact aerobic addl meths definitive ea isol CULTURE AEROBIC IDENTIFY [facility] Start: 06-23-2022 Cul bact xcpt urine blood/stool aerobic isol CULTURE OTHR SPECIMN AEROBIC [facility] Start: 06-23-2022 Iadna s aureus amplified probe tq STAPH A DNA AMP PROBE [facility] Start: 06-23-2022 Smr prim src gram/giemsa stain bct fungi/cell SMEAR GRAM STAIN [facility] Start: 06-23-2022 [facility] Work Phone: Start: 04-27-2022 Hemoglobin A1c/Hemoglobin.total in Blood HBA1C [facility] Start: 04-09-2022 Patient discharge [facility] Work Phone: Start: 04-07-2022 Consultation [facility] Work Phone: Start: 04-07-2022 End: 04-07-2022 Referral to service [facility] Work Phone: Start: 04-06-2022 Elevation of affected extremity [facility] Work Phone: Start: 04-06-2022 [facility] Work Phone: Start: 04-06-2022 End: 04-06-2022 Following clinical pathway protocol [facility] Work Phone: Start: 04-06-2022 Ambulation without limitation [facility] Work Phone: Start: 04-06-2022 Assessment of risk of venous thromboembolism [facility] Work Phone: Start: 04-06-2022 Care regimes management [facility] Work Phone: Start: 04-06-2022 Consultation for treatment [facility] Work Phone: Start: 04-06-2022 Elevation of affected extremity [facility] Work Phone: Start: 04-06-2022 Insertion of catheter into peripheral vein [facility] Work Phone: Start: 04-06-2022 Notification of physician [facility] Work Phone: Start: 04-06-2022 Patient referral to dietitian [facility] Work Phone: Start: 04-06-2022 Providing care according to standard [facility] Work Phone: Start: 04-06-2022 Referral to banana carrier [facility] Work Phone: Start: 04-06-2022 Wound care [facility] Work Phone: Start: 04-06-2022 [facility] Work Phone: Start: 04-06-2022 Verification routine [facility] Work Phone: Start: 04-06-2022 Admission procedure [facility] Work Phone: Start: 04-06-2022 End: 04-07-2022 [facility] Work Phone: Start: 04-06-2022 Patient referral to dietitian [facility] Work Phone: Start: 04-05-2022 Assay of lactate ASSAY OF LACTIC ACID [facility] Work Phone: Start: 04-05-2022 Basic metabolic panel calcium total METABOLIC PANEL TOTAL CA [facility] Work Phone: Start: 04-05-2022 Blood count complete auto&auto difrntl wbc COMPLETE CBC W/AUTO DIFF WBC [facility] Work Phone: Start: 04-05-2022 Culture bacterial blood aerobic w/id isolates BLOOD CULTURE FOR BACTERIA [facility] Work Phone: Start: 04-05-2022 Emergency department visit moderate severity EMERGENCY DEPT VISIT [facility] Work Phone: Start: 04-05-2022 Iv infusion ther proph addl sequential to 1 hr TX/PROPH/DG ADDL SEQ IV INF [facility] Work Phone: Start: 04-05-2022 Iv infusion therapy prophylaxis/dx ea hour THER/PROPH/DIAG IV INF ADDON [facility] Work Phone: Start: 04-05-2022 Iv infusion therapy/prophylaxis /dx 1st to 1 hr THER/PROPH/DIAG IV INF INIT [facility] Work Phone: Start: 04-05-2022 Radex foot complete minimum 3 views X-RAY EXAM OF FOOT [facility] Work Phone: Start: 04-05-2022 End: 04-05-2022 Blood culture [facility] Work Phone: Start: 03-23-2022 End: 04-06-2022 SARS-CoV-2 (COVID-19) RNA [Presence] in Respiratory specimen by REBECCA with probe detection 2019 CORONAVIRUS Microbiology Routine Acute cough Mild intermittent asthmatic bronchitis without complication Expected: 03/23/2022, Expires: 04/06/2022 [facility] Work Phone: Comment on above: Expected: 03/23/2022, Expires: Start: 03-12-2022 Influenza vaccination INFLUENZA (#1) [facility] Start: 01-30-2022 Celiac disease screen [facility] Work Phone: Start: 01-30-2022 Immunoglobulin measurement [facility] Work Phone: Start: 01-30-2022 Serum immunofixation [facility] Work Phone: Start: 01-30-2022 Vitamin B12 measurement [facility] Work Phone: Start: 01-30-2022 [facility] Work Phone: Start: 01-28-2022 HPV TESTING HPV TESTING [facility] Start: 01-28-2022 Screening for malignant neoplasm of cervix [facility] Start: 08-25-2021 COVID-19 VACCINE (2 - Moderna series) COVID-19 VACCINE (2 - Moderna series) [facility] Start: 03-10-2020 3 comp foot exam completed DIABETIC FOOT EXAM [facility] Start: 03-10-2020 ANNUAL PCP TEAM CHRONIC DISEASE VISIT ANNUAL PCP TEAM CHRONIC DISEASE VISIT [facility] Start: 03-10-2020 Diabetic foot examination Diabetic Foot Exam [facility] Start: 05-03-2018 PAP TESTING PAP TESTING [facility] Start: 05-03-2018 Screening for malignant neoplasm of cervix Pap Testing [facility] Start: 05-03-2016 Screening for malignant neoplasm of cervix Cervical Cancer Screening [facility] Start: 06-07-2014 Hepatitis B surface antibody level LDL CHOLESTEROL [facility] Start: 04-12-2014 Hepatitis B screening URINE ALBUMIN:CREATININE RATIO [facility] Start: 03-31-2014 Glaucoma screening Dilated Retinal Exam [facility] Start: 03-31-2014 Hepatitis C antibody, confirmatory test DILATED RETINAL EXAM [facility] Start: 03-06-2014 PNEUMOCOCCAL (2 - PCV) PNEUMOCOCCAL (2 - PCV) [facility] Start: 03-06-2014 Pneumococcal vaccination [facility] Start: 03-06-2014 Pneumococcal Vaccine: Pediatrics (0 to 5 Years) and At-Risk Patients (6 to 64 Years) (2 - PCV) Pneumococcal Vaccine: Pediatrics (0 to 5 Years) and At-Risk Patients (6 to 64 Years) (2 - PCV) [facility] Start: 01-28-2013 Screening for malignant neoplasm of cervix Pap Smear [facility] Start: 01-28-2011 DTaP/Tdap/Td Vaccines (1 - Tdap) DTaP/Tdap/Td Vaccines (1 - Tdap) [facility] Start: 01-28-2011 HEPATITIS B (1 of 3 - Risk 3-dose series) HEPATITIS B (1 of 3 - Risk 3-dose series) [facility] Start: 01-28-2011 Hepatitis B Vaccine (1 of 3 - 19+ 3-dose series) Hepatitis B Vaccine (1 of 3 - 19+ 3-dose series) [facility] Start: 01-28-2011 Urine microalbumin profile [facility] Start: 01-28-2010 HEPATITIS C SCREENING HEPATITIS C SCREENING [facility] Start: 01-28-2010 Hepatitis C screening Hepatitis C Screening [facility] Start: 01-28-2010 HIV SCREENING HIV SCREENING [facility] Start: 01-28-2010 HIV screening HIV Screening [facility] Start: 2004 Adult depression screening assessment DEPRESSION SCREENING [facility] Start: 01-28-2002 Diabetic foot examination Diabetes: Foot Exam [facility] Start: 01-28-2002 Glaucoma screening Diabetes: Retinopathy Screening [facility] Start: 01-28-2002 Preventive dental service Diabetes: Dental Exam [facility] Start: 01-28-1993 MMR Vaccines (1 of 1 - Standard series) MMR Vaccines (1 of 1 - Standard series) [facility] Start: 01-28-1993 Varicella vaccination Varicella Vaccines (1 of 2 - 2-dose childhood series) [facility] Start: 1992 COVID-19 VACCINE (#1) COVID-19 VACCINE (#1) [facility] Start: 1992 Hemoglobin A1c measurement Diabetes: Hemoglobin A1C [facility] Start: 1992 HEPATITIS B (1 of 3 - 3-dose series) HEPATITIS B (1 of 3 - 3-dose series) [facility] Start: 1992 Hepatitis B Vaccine (1 of 3 - 3-dose series) Hepatitis B Vaccine (1 of 3 - 3-dose series) [facility] Start: 1992 Hepatitis B Vaccines (1 of 3 - 3-dose series) Hepatitis B Vaccines (1 of 3 - 3-dose series) [facility] Start: 1992 HIV screening HIV Screening [facility] Start: 1992 Lipid panel Lipid Panel [facility] Acetone [Presence] i n Serum or Plasma [facility] Acid fast bacilli culture [facility] Work Phone: Acid fast bacilli culture [facility] Alanine aminotransfe rase [Enzymatic activity/volume] in Serum or Plasma [facility] Alanine aminotransfe rase [Enzymatic activity/volume] in Serum or Plasma [facility] Alanine aminotransfe rase [Enzymatic activity/volume] in Serum or Plasma [facility] Alanine aminotransfe rase [Enzymatic activity/volume] in Serum or Plasma [facility] Alanine aminotransfe rase [Enzymatic activity/volume] in Serum or Plasma [facility] Albumin [Mass/volume ] in Serum or Plasma [facility] Albumin [Mass/volume ] in Serum or Plasma [facility] Albumin [Mass/volume ] in Serum or Plasma [facility] Albumin [Mass/volume ] in Serum or Plasma [facility] Albumin [Mass/volume ] in Serum or Plasma [facility] Albumin [Moles/volum e] in Serum or Plasma [facility] Work Phone: Albumin/Globulin ratio [facility] Work Phone: Alkaline phosphatase [Enzymatic activity/volume] in Serum or Plasma [facility] Alkaline phosphatase [Enzymatic activity/volume] in Serum or Plasma [facility] Alkaline phosphatase [Enzymatic activity/volume] in Serum or Plasma [facility] Alkaline phosphatase [Enzymatic activity/volume] in Serum or Plasma [facility] Alkaline phosphatase [Enzymatic activity/volume] in Serum or Plasma [facility] Anion gap measurement [facility] Work Phone: Anion gap measurement [facility] Anion gap measurement [facility] Anion gap measurement [facility] Anion gap measurement [facility] Anion gap measurement [facility] Anion gap measurement [facility] Antibody to lupus La protein measurement [facility] Work Phone: Antibody to SS-A measurement [facility] Work Phone: Aspartate aminotrans ferase [Enzymatic activity/volume] in Serum or Plasma [facility] Aspartate aminotrans ferase [Enzymatic activity/volume] in Serum or Plasma [facility] Aspartate aminotrans ferase [Enzymatic activity/volume] in Serum or Plasma [facility] Aspartate aminotrans ferase [Enzymatic activity/volume] in Serum or Plasma [facility] Aspartate aminotrans ferase [Enzymatic activity/volume] in Serum or Plasma [facility] Bacteria identified in Blood by Culture Blood Culture [facility] Bacteria identified in Unspecified specimen by Anaerobe culture [facility] Work Phone: Bacteria identified in Unspecified specimen by Anaerobe culture [facility] Bacteria identified in Urine by Culture Urine Culture [facility] Beta hydroxybutyrate [Mass/volume] in Serum or Plasma [facility] Bilirubin measurement, urine [facility] Bilirubin measurement, urine [facility] Bilirubin, total measurement [facility] Bilirubin, total measurement [facility] Bilirubin, total measurement [facility] Bilirubin, total measurement [facility] Bilirubin, total measurement [facility] Bilirubin.direct [Mass/volume] in Serum or Plasma [facility] Blood culture [facility] Work Phone: BUN/Creatinine ratio [facility] Work Phone: BUN/Creatinine ratio [facility] BUN/Creatinine ratio [facility] BUN/Creatinine ratio [facility] BUN/Creatinine ratio [facility] BUN/Creatinine ratio [facility] BUN/Creatinine ratio [facility] Calcium [Mass/volume ] in Serum or Plasma [facility] Work Phone: Calcium [Mass/volume ] in Serum or Plasma [facility] Calcium [Mass/volume ] in Serum or Plasma [facility] Calcium [Mass/volume ] in Serum or Plasma [facility] Calcium [Mass/volume ] in Serum or Plasma [facility] Calcium [Mass/volume ] in Serum or Plasma [facility] Calcium [Mass/volume ] in Serum or Plasma [facility] Carbon dioxide, tota l [Moles/volume] in Serum or Plasma [facility] Work Phone: Carbon dioxide, tota l [Moles/volume] in Serum or Plasma [facility] Carbon dioxide, tota l [Moles/volume] in Serum or Plasma [facility] Carbon dioxide, tota l [Moles/volume] in Serum or Plasma [facility] Carbon dioxide, tota l [Moles/volume] in Serum or Plasma [facility] Carbon dioxide, tota l [Moles/volume] in Serum or Plasma [facility] Carbon dioxide, tota l [Moles/volume] in Serum or Plasma [facility] CBC W Auto Different ial panel - Blood [facility] Centromere protein B Ab [Units/volume] in Serum [facility] Work Phone: Chloride [Moles/volu me] in Serum or Plasma [facility] Work Phone: Chloride [Moles/volu me] in Serum or Plasma [facility] Chloride [Moles/volu me] in Serum or Plasma [facility] Chloride [Moles/volu me] in Serum or Plasma [facility] Chloride [Moles/volu me] in Serum or Plasma [facility] Chloride [Moles/volu me] in Serum or Plasma [facility] Chloride [Moles/volu me] in Serum or Plasma [facility] Choriogonadotropin.b eta subunit ( test) [Presence] in Serum or Plasma [facility] Chromatin Ab [Units/ volume] in Serum or Plasma [facility] Work Phone: Comprehensive metabo lic 2000 panel - Serum or Plasma [facility] Creatinine [Moles/vo lume] in Serum or Plasma [facility] Work Phone: Creatinine [Moles/vo lume] in Serum or Plasma [facility] Creatinine [Moles/vo lume] in Serum or Plasma [facility] Creatinine [Moles/vo lume] in Serum or Plasma [facility] Creatinine [Moles/vo lume] in Serum or Plasma [facility] Creatinine [Moles/vo lume] in Serum or Plasma [facility] Creatinine [Moles/vo lume] in Serum or Plasma [facility] DNA double strand Ab [Units/volume] in Serum [facility] Work Phone: Electrophoresis: [id number] [facility] Work Phone: Electrophoresis: gabriella ma globulin [facility] Work Phone: Erythrocyte mean cor puscular volume determination [facility] Erythrocyte sediment ation rate [facility] Globulin measurement [facility] Work Phone: Glucose [Mass/volume ] in Serum or Plasma [facility] Work Phone: Glucose [Mass/volume ] in Serum or Plasma [facility] Glucose [Mass/volume ] in Serum or Plasma [facility] Glucose [Mass/volume ] in Serum or Plasma [facility] Glucose [Mass/volume ] in Serum or Plasma [facility] Glucose [Mass/volume ] in Serum or Plasma [facility] Glucose [Mass/volume ] in Serum or Plasma [facility] Hematocrit [Volume F raction] of Blood [facility] Work Phone: Hematocrit [Volume F raction] of Blood [facility] Hematocrit [Volume F raction] of Blood [facility] Hematocrit [Volume F raction] of Blood [facility] Hematocrit [Volume F raction] of Blood [facility] Hematocrit [Volume F raction] of Blood [facility] Hematocrit [Volume F raction] of Blood [facility] Hemoglobin [Mass/vol ume] in Blood [facility] Work Phone: Hemoglobin [Mass/vol ume] in Blood [facility] Hemoglobin [Mass/vol ume] in Blood [facility] Hemoglobin [Mass/vol ume] in Blood [facility] Hemoglobin [Mass/vol ume] in Blood [facility] Hemoglobin [Mass/vol ume] in Blood [facility] Hemoglobin [Mass/vol ume] in Blood [facility] Hemoglobin [Presence ] in Urine [facility] Hemoglobin [Presence ] in Urine [facility] IgA [Mass/volume] in Serum or Plasma [facility] Work Phone: IgE [Units/volume] i n Serum or Plasma [facility] Work Phone: IgG [Mass/volume] in Serum or Plasma [facility] Work Phone: IgM [Mass/volume] in Serum or Plasma [facility] Work Phone: Neva-1 extractable nuc lear Ab [Units/volume] in Serum [facility] Work Phone: Lactic acid measurement [facility] Work Phone: Leukocytes [#/volume ] in Blood [facility] Work Phone: Leukocytes [#/volume ] in Blood [facility] Leukocytes [#/volume ] in Blood [facility] Leukocytes [#/volume ] in Blood [facility] Leukocytes [#/volume ] in Blood [facility] Leukocytes [#/volume ] in Blood [facility] Leukocytes [#/volume ] in Blood [facility] Magnesium measurement [facility] Mean corpuscular hem oglobin concentration determination [facility] Work Phone: Mean corpuscular hem oglobin concentration determination [facility] Mean corpuscular hem oglobin concentration determination [facility] Mean corpuscular hem oglobin concentration determination [facility] Mean corpuscular hem oglobin concentration determination [facility] Mean corpuscular hem oglobin concentration determination [facility] Mean corpuscular hem oglobin concentration determination [facility] Mean corpuscular hem oglobin determination [facility] Work Phone: Mean corpuscular hem oglobin determination [facility] Mean corpuscular hem oglobin determination [facility] Mean corpuscular hem oglobin determination [facility] Mean corpuscular hem oglobin determination [facility] Mean corpuscular hem oglobin determination [facility] Mean corpuscular hem oglobin determination [facility] Measurement of immun oglobulin A in serum specimen [facility] Work Phone: Measurement of keton es in urine using dipstick [facility] Measurement of keton es in urine using dipstick [facility] Measurement of renal function [facility] Work Phone: Measurement of renal function [facility] Measurement of renal function [facility] Measurement of renal function [facility] Measurement of renal function [facility] Measurement of renal function [facility] Measurement of renal function [facility] Microbial culture, routine Wound Culture [facility] Work Phone: Microscopic urinalysis [facility] Work Phone: Microscopic urinalysis [facility] Microscopic urinalysis [facility] Mycobacterium sp marko ntified in Unspecified specimen by Organism specific culture [facility] Work Phone: Mycobacterium sp marko ntified in Unspecified specimen by Organism specific culture [facility] Neutrophil count [facility] Work Phone: Neutrophil count [facility] Neutrophil count [facility] Neutrophil count [facility] Neutrophil count [facility] Neutrophil count [facility] Neutrophil count [facility] Neutrophil cytoplasm ic Ab.classic [Units/volume] in Serum [facility] Work Phone: Neutrophil percent differential count [facility] Work Phone: Neutrophil percent differential count [facility] Neutrophil percent differential count [facility] Neutrophil percent differential count [facility] Neutrophil percent differential count [facility] Neutrophil percent differential count [facility] Neutrophil percent differential count [facility] End: 03-31-2024 NM Stomach Views for gastric emptying solid phase W radionuclide PO NM GASTRIC EMPTYING SOLID Radiology Routine Nausea 1 Occurrences starting 03/02/2023 until 03/31/2024 [facility] Work Phone: Comment on above: 1 Occurrences starting 03/02/2023 until 03/31/2024 Organism count, micr oscopic method [facility] Work Phone: P-ANCA measurement [facility] Work Phone: Patient Education [facility] Work Phone: Patient referral [facility] Work Phone: pH of Urine [facility] pH of Urine [facility] Platelets [#/volume] in Blood [facility] Work Phone: Platelets [#/volume] in Blood [facility] Platelets [#/volume] in Blood [facility] Platelets [#/volume] in Blood [facility] Platelets [#/volume] in Blood [facility] Platelets [#/volume] in Blood [facility] Platelets [#/volume] in Blood [facility] Potassium [Moles/vol ume] in Serum or Plasma [facility] Work Phone: Potassium [Moles/vol ume] in Serum or Plasma [facility] Potassium [Moles/vol ume] in Serum or Plasma [facility] Potassium [Moles/vol ume] in Serum or Plasma [facility] Potassium [Moles/vol ume] in Serum or Plasma [facility] Potassium [Moles/vol ume] in Serum or Plasma [facility] Potassium [Moles/vol ume] in Serum or Plasma [facility] Protein electrophore sis panel - Serum or Plasma [facility] Work Phone: Radionuclide gastric emptying study [facility] Red blood cell count [facility] Work Phone: Red blood cell count [facility] Red blood cell count [facility] Red blood cell count [facility] Red blood cell count [facility] Red blood cell count [facility] Red blood cell count [facility] Red cell distributio n width determination [facility] Work Phone: Red cell distributio n width determination [facility] Red cell distributio n width determination [facility] Red cell distributio n width determination [facility] Red cell distributio n width determination [facility] Red cell distributio n width determination [facility] Red cell distributio n width determination [facility] SCL-70 extractable n uclear Ab [Units/volume] in Serum by Immunoassay [facility] Work Phone: Serum protein electrophoresis [facility] Work Phone: Jang extractable nu clear Ab [Presence] in Serum [facility] Work Phone: Sodium [Moles/volume ] in Serum or Plasma [facility] Work Phone: Sodium [Moles/volume ] in Serum or Plasma [facility] Sodium [Moles/volume ] in Serum or Plasma [facility] Sodium [Moles/volume ] in Serum or Plasma [facility] Sodium [Moles/volume ] in Serum or Plasma [facility] Sodium [Moles/volume ] in Serum or Plasma [facility] Sodium [Moles/volume ] in Serum or Plasma [facility] Specific gravity of Urine [facility] Specific gravity of Urine [facility] Tissue transglutamin ase IgA Ab [Units/volume] in Serum [facility] Work Phone: Total protein measurement [facility] Total protein measurement [facility] Total protein measurement [facility] Total protein measurement [facility] Total protein measurement [facility] Urea nitrogen [Mass/ volume] in Serum or Plasma [facility] Work Phone: Urea nitrogen [Mass/ volume] in Serum or Plasma [facility] Urea nitrogen [Mass/ volume] in Serum or Plasma [facility] Urea nitrogen [Mass/ volume] in Serum or Plasma [facility] Urea nitrogen [Mass/ volume] in Serum or Plasma [facility] Urea nitrogen [Mass/ volume] in Serum or Plasma [facility] Urea nitrogen [Mass/ volume] in Serum or Plasma [facility] Urinalysis, blood, qualitative [facility] Work Phone: Urinalysis, blood, qualitative [facility] Urinalysis, blood, qualitative [facility] Urine culture [facility] Urine dipstick for glucose [facility] Urine dipstick for glucose [facility] Urine dipstick for l eukocyte esterase [facility] Urine dipstick for l eukocyte esterase [facility] Urine dipstick for nitrite [facility] Urine dipstick for nitrite [facility] Urine dipstick for protein [facility] Urine dipstick for protein [facility] Urine examination [facility] Urine examination [facility] Urine microscopy: ep ithelial cells [facility] Work Phone: Urine microscopy: ep ithelial cells [facility] Urine microscopy: ep ithelial cells [facility] Urine Microscopy: white cells [facility] Urine Microscopy: white cells [facility] Urobilinogen [Presen ce] in Urine [facility] Urobilinogen [Presen ce] in Urine [facility] Vancomycin [Mass/vol ume] in Serum or Plasma --trough [facility] Work Phone: White blood cell count [facility] Work Phone: [facility] Immunizations Immunization Date Immunization Notes Care Provider Gabi aydinshu 06-30-2021 Yuri (Lopeza) [place] [facility] Work Phone: [facility] 04-13-2013 influenza virus vacc ine, unspecified formulation Alyssa Jaime [employer]PA[employer]EXTRUSION DIE COORDINATOR Work Phone: [facility] 03-06-2013 pneumococcal polysaccharide vaccine, 23 valent Alyssa Jaime [employer]EXTRUSION DIE COORDINATOR Work Phone: [facility] Work Phone: Payers Date Payer Category Payer Self-pay [id number] 2021 Medicaid [id number] 2021 Medicaid [employer] [employer] [place] [id number] 2021-[facility] [phone] [address] [address] [place] [address] Medicaid [id number] 2021 Medicaid [id number] 1990 Unknown [id number] 1990 Unknown [id number] [id number]1 1990 Unknown [id number] 2.16.840.1.651660.3.579.2.627 1990 Unknown [id number] 2.16.840.1.192531.3.579.2.627 Unknown [id number] 2.16840.1.247235.3.579.2.462 Unknown [id number] 2.16.840.1.913902.3.579.2.462 Unknown [id number] 2.16.840.1.453747.3.579.2.462 Unknown [id number] 2.16.840.1.904798.3.579.2.462 Unknown [id number] 2.16.840.1.627210.3.579.2.462 Unknown [id number] 2.16.840.1.674972.3.579.2.462 Unknown [id number] 2.16.840.1.183059.3.579.2.462 Unknown [id number] 2.16.840.1.939952.3.579.2.462 Unknown [id number] 2.16.840.1.916022.3.579.2.462 Unknown [id number] 2.16.840.1.302519.3.579.2.462 Unknown [id number] 2.16.840.1.391104.3.579.2.462 Unknown [id number] 2.16.840.1.605349.3.579.2.462 Unknown [id number] 2.16.840.1.959347.3.579.2.462 Unknown [id number] 2.16.840.1.708590.3.579.2.462 Unknown [id number] 2.16.840.1.498171.3.579.2.462 Unknown [id number] 2.16.840.1.633615.3.579.2.462 Unknown [id number] 2.16.840.1.838334.3.579.2.462 Unknown [id number] 2.16.840.1.628191.3.579.2.462 Social History Date Type Detail Facility [facility] Work Phone: Start: 10-24-2021 End: 06-27-2023 Tobacco smoking status WVIS Unknown if ever smoked [facility] Start: 1990 Sex Assigned At Female W [facility] Start: 03-03-2013 End: 11-25-2024 Tobacco smoking status NHIS Smokes tobacco daily [facility] Work Phone: History of tobacco use Cigarette Smoker C [facility] Start: 05-15-2021 End: 02-02-2022 Alcohol intake Current drinker of alcohol (finding) [facility] Start: 05-03-2013 History SDOH Alcohol Comment Seldom [facility] Start: 1990 Sex Assigned At Not on file C [facility] Start: 04-15-2021 End: 01-24-2023 Exposure to SARS-CoV-2 (event) Not sure [facility] Work Phone: Start: 03-03-2013 End: 02-10-2023 Cigarettes smoked current (pack per day) - Reported 0.5 [facility] Start: 03-03-2013 End: 06-26-2024 Tobacco use and exposure Smokeless tobacco non-user [facility] Start: 01-10-2023 Tobacco smoking status Smoker (findi ng) [facility] Start: 01-24-2023 End: 02-10-2023 Alcohol Use Disorder Identification Test - Consumption [AUDIT-C] [facility] How often to you hav e a drink containing alcohol? Monthly or less [facility] How many standard dr inks containing alcohol do you have on a typical day? 1 or 2 [facility] How often do you hav e 6 or more drinks on 1 occasion? Less than monthly [facility] Start: 01-24-2023 Alcohol Comment occ. [facility] National Score (1-10 0), lower number is lower risk 92 [facility] Work Phone: Start: 02-19-2023 End: 07-03-2024 Alcohol intake Ex-drinker (finding) [facility] Start: 02-18-2023 Alcohol Comment rare [facility] (I/We) worried tunde er (my/our) food would run out before (I/we) got money to buy more. Never true [facility] Work Phone: In the past 12 month s, was there a time when you were not able to pay the mortgage or rent on time? No [facility] Work Phone: Start: 10-19-2024 End: 11-01-2024 Sex Female (finding) [facility] Start: 12-30-2024 End: 12-30-2024 Tobacco smoking status NHIS Ex-smoker (finding) [facility] NEGATED: Highlighted row [facility] NEGATED: Highlighted row Not [facility] Medical Equipment Procedure Code Equipment Code [...] Standard FDA Start: 12-24-2023 Repair, tendon, Achilles [id number] FDA Start: 12-24-2023 Repair, tendon, Achilles BIOSKIN, 2 X 4 FDA Start: 12-24-2023 Repair, tendon, Achilles FIBERTAPE FDA Start: 12-24-2023 Repair, tendon, Achilles SUTURETAPE,FIBER LOOP FDA Start: 12-24-2023 Repair, tendon, Achilles [place] Citrefix Xpress System FDA Start: 12-24-2023 Repair, tendon, Achilles [place] Citrefix Xpress System FDA Start: 12-24-2023 Repair, tendon, Achilles VIAFLOW, 1CC FDA Start: 12-24-2023 Repair, tendon, Achilles Guevara Graft Jacket Now Standard FDA Start: 12-24-2023 Repair, tendon, Achilles BIOSKIN, 2 X 4 FDA Start: 12-24-2023 Repair, tendon, Achilles FIBERTAPE FDA Start: 12-24-2023 Repair, tendon, Achilles SUTURETAPE,FIBER LOOP FDA Start: 12-24-2023 Repair, tendon, Achilles Aria Citrefix Xpress System FDA Start: 12-24-2023 Repair, tendon, Achilles [place] Citrefix Xpress System FDA Start: 12-24-2023 Repair, [...] LOOP FDA Start: 12-24-2023 Repair, tendon, Achilles [place] [employer]ix Xpress System FDA Start: 12-24-2023 Repair, [...] System FDA Start: 12-24-2023 Repair, tendon, Achilles [place] Cit[employer]ix Xpress System FDA Start: 12-24-2023 Repair, [...] LOOP FDA Start: 12-24-2023 Repair, tendon, Achilles [place] [employer] Xpress System FDA Start: 12-24-2023 Repair, tendon, Achilles Aria Citrefix Xpress System FDA Start: 12-24-2023 Repair, tendon, Achilles VIAFLOW, 1CC FDA Start: 12-24-2023 Repair, tendon, Achilles Guevara Graft Jacket Now Standard FDA Start: 12-24-2023 Incision and drainage, abscess DRESSING,SURGICEL 4x8 FDA Start: 07-23-2023 Incision and drainage, abscess Bone grafting cannula [id number] FDA Start: 07-23-2023 Incision and drainage, abscess [...] drainage, abscess DRESSING,SURGICEL 4x8 FDA Start: 07-23-2023 [id number] Start: 11-27-2013 End: 02-18-2023 Comment on above: Test blood sugar(s) 1 times daily. Dx: 250.02. Insulin: No Test blood sugar(s) 1 daily. Dx: 250.02. 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, Laundry, Meal preparation, Personal ADL, Shopping [facility] 02-11-2023 Functional Status Identified as high risk, Fall ID band on, Door open, Room check performed [facility] 02-11-2023 Functional Status [facility] 02-11-2023 Functional Status Michael Mckeon [facility] 02-11-2023 Functional Status Patient refused [facility] 02-10-2023 Functional Status Michael Mckeon [facility] 01-15-2023 Functional status Up ad nella [facility] Work Phone: 01-10-2023 Functional Status Independent Michael Mike [facility] 01-10-2023 Functional Status Standard Safet y Call device within reach, Bed in low position, Wheels locked, Safety level maintained [facility] 08-15-2022 Functional status Ambulates [facility] Work Phone: 06-29-2022 Functional status Ambulates;Up a d nella;Bedside Commode [facility] Work Phone: 06-25-2022 Functional status Ambulates;Up a d nella;Bathroom Privilege [facility] Work Phone: 04-09-2022 Functional status Bedside [facility] Work Phone: Mental Status Date Assessment Result Facility 12-31-2024 Cognitive function Voice/Name [facility] Work Phone: 11-28-2024 Cognitive function Voice/Name [facility] Work Phone: 07-23-2023 Cognitive function Voice/Name [facility] Work Phone: 05-08-2023 Cognitive function Voice/Name [facility] Work Phone: 02-11-2023 Mental Status Oriented x 4 [facility] 02-11-2023 Mental Status [facility] 02-10-2023 Mental Status [facility] 01-14-2023 Cognitive function Appropriate;[facility] Work Phone: 01-10-2023 Mental Status Orientation Oriented x 4 [facility] 08-15-2022 Cognitive function Voice/Name [facility] Work Phone: 08-12-2022 Cognitive function Level Of Cons ciousness Awake;Alert;Appropriate [facility] Work Phone: 06-29-2022 Cognitive function Voice/Name [facility] Work Phone: 06-25-2022 Cognitive function Voice/Name [facility] Work Phone: 04-09-2022 Cognitive function Voice/Name [facility] Work Phone: Clinical Notes 04-28-2013 to 12-31-2024 Note Date & Type Note Facility 12-31-2024 Discharge summary Note Date/Time December 30, 2024 10:32pm [facility] Medical Records Department [address] [place] [address] Emergency Department Summary 12/30/24 MR#: [id number] Acct: [id number] Name: GHISLAINE GIVENS Rep #:[id number] : 1990 34 From: Poli Farah PCP: BROOKLYN Warren, GRIZZLYMAN-C Statu s:ADM IN Location: ICU CVICU20 3-1 HPI History of Present Illness Chief Complaint: Nausea/Vomiting Informant: patient Narrative Narrative: Presents recurrent vomiting last 2 days. Yesterday states mild dark blood. Today none. History of cyclic vomiting. History of marijuana use however states last use was a month ago. 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 She has follow-up with GI couple weeks ago upper and lower endoscopy next month along with repeat gastric emptying test. She is a diabetic. She is put on the Linzess due to constipation. She has been having bowel movements up 2 days ago states started using some chocolate Ex-Lax and had some loose stools today. She started hot showers with no relief. She is currently not on a PPI, denies any allergies. Large emesis in the emergency department of 600 cc per nursing that was clear. Prior similar symptoms: Yes PFSH PFSH Medical History Diabetes GERD (gastroesophageal reflux disease) Wears glasses [...] 20 unit subcut BID doreen betes 08/12/22 12/29/24 History mL) subcutaneous pen (Lantus Solostar U-100 Insulin) albuterol sulfate 90 mcg/actuation 2 puff inhalation Q 4H PRN 11/25/24 Unknown History aerosol inhaler shortness of breath or wheez ing dulaglutide 4.5 mg/0.5 mL 4.5 mg subcut SA 11/25/24 History subcutaneous pen injector (Trulicity) linaclotide 145 mcg capsule 145 mcg PO QAM #30 caps 12/29/24 Rx (Linzess) Allergy/AdvReac Type Severity Reaction Status Date / Time No Known Allergies Allergy Verified 12/30/24 10:23 Family History Other Bleeding disorder Cancer Diabetes Hypertension Surgical History Hx of foot surgery Hx of foot surgery Social History Smoking Status: Former smoker alcohol intake: never substance use type: does not use what type of physical activity do you participate in: none ROS ROS ED Constitutional Constitutional ED: Denies chills, fever(s) or sweats ENT ENT ED: Denies sore throat Cardiovascular Cardiovascular: Denies chest pain, [...] weakness EXAM Physical Exam Const Vital Signs: 12/30/24 10:25 12/30/24 12:26 Temperature 97.4 F L Temperature Source Oral Pulse Rate 97 94 Respiratory Rate 18 Blood Pressure 133/96 H 126/93 H Blood Pressure Mean 108 104 Pulse Ox 96 Oxygen Delivery Method Room Air Positive well nourished and well developed General Appearance ED: well developed and NAD HEENT Reports moist mucous membranes normocephalic and atraumatic Eyes General Eye ED: Yes normal appearance of both eyes Neck full ROM Chest Wall Chest: Negative for tenderness Resp normal respiratory effort and normal air movement Effort and Inspection: symmetric chest movement; Negative for respiratory distress Cardio regular rate, regular rhythm and no murmurs Peripheral Pulses: pulses 2+ throughout GI normal to inspection, nondistended, normoactive bowel sounds and non-tender Palpation: Negative for guarding or rebound tenderness present Extremity normal to inspection General Extremety ED: Negative for edema or tenderness General Extremity: Negative for edema Neuro oriented x3 and no sensory deficits noted Sensorium / Orientation: awake and alert Skin no rashes or lesions noted and no wounds MDM MDM MDM Narrative Medical decision making narrative: Interventions / MDM: Differential diagnosis: Cyclic vomiting, diabetic ketoacidosis Diagnosis considered but do not suspect: Nonsurgical abdomen. My EKG interpretation: N/A Imaging independently reviewed and interpreted by myself: N/A External documents reviewed: N/A Test considered but not ordered:N/A ED course: History of cyclic vomiting reported last use of marijuana a month ago. Will check abdominal labs, check toxicology screen. Nonsurgical abdomen at this time. Reported bowel movement today with Ex-Lax. Denies bloody stools. No bloody emesis per nursing today. IV fluids cyclic vomiting orders use with Ativan Zofran and Pepcid. Patient did agree to try capsaicin topical. 1155: Labs white count 13.3 creatinine 1.22. Creatinine 17 days ago 0.86. Glucose 359 in the lab with gap acidosis of 20. Beta hydroxybutyrate added. Lipase normal. Clinically feeling better with the cocktail. She has no urine symptoms no cough or concerns for infectious causes. She states since her last admission she was taken off Trulicity only on Lantus therefore likely suboptimaltreatment with her glucose at home. Ordered for additional fluids for concerns for DKA, insulin drip started. Abdomen remains soft, I do not feel images are necessary. I will speak to hospitalist service for admission. 1228: I spoke with hospitalist Dr. Bain for admission to ICU. 1230: Nursing reporting requesting nausea and pain medicines. Will order for Levsin and Reglan. Re-evaluation: stable Disposition discussed with patient/family/significant other: Patient Case discussed with consulting clinician: Hospitalist This note was generated with [employer] dictation software. It may contain incorrectwords, spelling, and punctuation that were not noted in checking the note beforesigning. Lab Data Attestation: I reviewed the patient's lab results. Labs: Laboratory Results - last 24 hr 12/30/24 12/30/24 10:50 11:32 WBC 13.3 H RBC 4.79 Hgb 13.2 Hct 39.2 MCV 81.8 MCH 27.6 MCHC 33.7 RDW Std Deviation 41.4 RDW Coeff of John 14.3 Plt Count 430 MPV 9.7 Immature Gran % (Auto) 0.600 Neut % (Auto) 70.7 H Lymph % (Auto) 23.6 Bibb % (Auto) 4.8 Eos % (Auto) 0.0 Baso % (Auto) 0.3 Absolute Neuts (auto) 9.4 H Absolute Lymphs (auto) 3.14 Nucleated RBC % 0 Sodium 137 Potassium 3.4 Chloride 97 L Carbon Dioxide 19.2 L Anion Gap 20 H BUN 14 Creatinine 1.22 H Estim Creat Clear Calc 81.50 Est GFR (MDRD) Non-Af 60 BUN/Creatinine Ratio 11.1 Glucose 359 H Serum Osmolality 302 H Calcium 9.7 Phosphorus 1.5 L Magnesium 1.8 Total Bilirubin 0.65 AST 16 ALT 12 Alkaline Phosphatase 91 Total Protein 8.6 H Albumin 4.2 Globulin 4.4 H Albumin/Globulin Ratio 0.9 Lipase 25 b-Hydroxybutyric mmol/L 0.3 Serum , Qual NEGATIVE Urine Color Yellow Urine Clarity Sl. Cloudy Urine pH 5.0 Ur Specific [place] 1.025 Urine Protein 30 H Urine Glucose (UA) 1000 H Urine Ketones 50 H Urine Occult Blood 10 H Urine Nitrite Negative Urine Bilirubin 3 H Urine Urobilinogen 1 H Ur Leukocyte Esterase 500 H Urine RBC 0 SEEN Urine WBC 5-10 SEEN Ur Squamous Epith Cells 10-25 SEEN Urine Bacteria 0 SEEN Urine Mucus 0 SEEN Urine Opiates Screen NEGATIVE U Buprenorphine Qual NEGATIVE Ur Oxycodone Screen NEGATIVE Urine Methadone Screen NEGATIVE Urine Fentanyl Screen NEGATIVE Ur Barbiturates Screen NEGATIVE Ur Phencyclidine Scrn NEGATIVE Ur Amphetamines Screen NEGATIVE U Benzodiazepines Scrn NEGATIVE Urine Cocaine Screen NEGATIVE U Cannabinoids Screen PRESUMPTIVE POSITIVE Critical Care Time Critical Care Time: Yes Critical care time (excluding procedures): 30-74 minutes, Discussing w/Patient &/or Family/Developmental Mathematics Instructor, Arranging Admission or Transfer, Performing Direct Patient Care at Bedside and - (35 minutes) Discharge Plan Dx/Rx/DC Orders Clinical Impression: Diabetic ketoacidosis, Cyclic vomiting syndrome, History of diabetes mellitus, NAI (acute kidney injury) Disposition Disposition: Acute Care Hospital [facility] Discharge Date/Time: 12/30/24 13:08 What to do if you have Problems For any increased pain, shortness of breath, bleeding, nausea or vomiting, chestpain, or any unexpected problems, contact your Primary Care Provider. Call [facility] ([phone]) or report to the closest Emergency Room. Call 911 if necessary. 12/30/242231 <Electronically signed by Poli Farah> Cosigner Signature (if applicable): CC: BROOKLYN GRIZZLYMAN-C Amy Solorzano ~ Signed [facility] Work Phone: 1(759) 998-100906-21-2025 Discharge summary [facility] Medical Records Department [address] [place] [address] Emergency Department Summary 12/30/24 MR#: [id number] Acct: [id number] Name: GHISLAINE GIVENS Rep #:[id number] : 1990 34 From: Poli Farah PCP: BROOKLYN Warren, GRIZZLYMAN-C Statu s:ADM IN Location: ICU CVICU20 3-1 HPI History of Present Illness Chief Complaint: Nausea/Vomiting Informant: patient Narrative Narrative: Presents recurrent vomiting last 2 days. Yesterday states mild dark blood. Today none. History of cyclic vomiting. History of marijuana use however states last use was a month ago. 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 She has follow-up with GI couple weeks ago upper and lower endoscopy next month along with repeat gastric emptying test. She is a diabetic. She is put on the Linzess due to constipation. She has been having bowel movements up 2 days ago states started using some chocolate Ex-Lax and had some loose stools today. She started hot showers with no relief. She is currently not on a PPI, denies any allergies. Large emesis in the emergency department of 600 cc per nursing that was clear. Prior similar symptoms: Yes PFSH PFSH Medical History Diabetes GERD (gastroesophageal reflux disease) Wears glasses [...] 20 unit subcut BID doreen betes 08/12/22 12/29/24 History mL) subcutaneous pen (Lantus Solostar U-100 Insulin) albuterol sulfate 90 mcg/actuation 2 puff inhalation Q 4H PRN 11/25/24 Unknown History aerosol inhaler shortness of breath or wheez ing dulaglutide 4.5 mg/0.5 mL 4.5 mg subcut SA 11/25/24 History subcutaneous pen injector (Trulicity) linaclotide 145 mcg capsule 145 mcg PO QAM #30 caps 12/29/24 Rx (Linzess) Allergy/AdvReac Type Severity Reaction Status Date / Time No Known Allergies Allergy Verified 12/30/24 10:23 Family History Other Bleeding disorder Cancer Diabetes Hypertension Surgical History Hx of foot surgery Hx of foot surgery Social History Smoking Status: Former smoker alcohol intake: never substance use type: does not use what type of physical activity do you participate in: none ROS ROS ED Constitutional Constitutional ED: Denies chills, fever(s) or sweats ENT ENT ED: Denies sore throat Cardiovascular Cardiovascular: Denies chest pain, [...] weakness EXAM Physical Exam Const Vital Signs: 12/30/24 10:25 12/30/24 12:26 Temperature 97.4 F L Temperature Source Oral Pulse Rate 97 94 Respiratory Rate 18 Blood Pressure 133/96 H 126/93 H Blood Pressure Mean 108 104 Pulse Ox 96 Oxygen Delivery Method Room Air Positive well nourished and well developed General Appearance ED: well developed and NAD HEENT Reports moist mucous membranes normocephalic and atraumatic Eyes General Eye ED: Yes normal appearance of both eyes Neck full ROM Chest Wall Chest: Negative for tenderness Resp normal respiratory effort and normal air movement Effort and Inspection: symmetric chest movement; Negative for respiratory distress Cardio regular rate, regular rhythm and no murmurs Peripheral Pulses: pulses 2+ throughout GI normal to inspection, nondistended, normoactive bowel sounds and non-tender Palpation: Negative for guarding or rebound tenderness present Extremity normal to inspection General Extremety ED: Negative for edema or tenderness General Extremity: Negative for edema Neuro oriented x3 and no sensory deficits noted Sensorium / Orientation: awake and alert Skin no rashes or lesions noted and no wounds MDM MDM MDM Narrative Medical decision making narrative: Interventions / MDM: Differential diagnosis: Cyclic vomiting, diabetic ketoacidosis Diagnosis considered but do not suspect: Nonsurgical abdomen. My EKG interpretation: N/A Imaging independently reviewed and interpreted by myself: N/A External documents reviewed: N/A Test considered but not ordered:N/A ED course: History of cyclic vomiting reported last use of marijuana a month ago. Will check abdominal labs, check toxicology screen. Nonsurgical abdomen at this time. Reported bowel movement today with Ex-Lax. Denies bloody stools. No bloody emesis per nursing today. IV fluids cyclic vomiting orders use with Ativan Zofran and Pepcid. Patient did agree to try capsaicin topical. 1155: Labs white count 13.3 creatinine 1.22. Creatinine 17 days ago 0.86. Glucose 359 in the lab with gap acidosis of 20. Beta hydroxybutyrate added. Lipase normal. Clinically feeling better with thecocktail. She has no urine symptoms no cough or concerns for infectious causes. She states since her last admission she was taken off Trulicity only on Lantus therefore likely suboptimaltreatment with her glucose at home. Ordered for additional fluids for concerns for DKA, insulin drip started. Abdomen remains soft, I do not feel images are necessary. I will speak to hospitalist service for admission. 1228: I spoke with hospitalist Dr. Bain for admission to ICU. 1230: Nursing reporting requesting nausea and pain medicines. Will order for Levsin and Reglan. Re-evaluation: stable Disposition discussed with patient/family/significant other: Patient Case discussed with consulting clinician: Hospitalist This note was generated with [employer] dictation software. It may contain incorrectwords, spelling, and punctuation that were not noted in checking the note beforesigning. Lab Data Attestation: I reviewed the patient's lab results. Labs: Laboratory Results - last 24 hr 12/30/24 12/30/24 10:50 11:32 WBC 13.3 H RBC 4.79 Hgb 13.2 Hct 39.2 MCV 81.8 MCH 27.6 MCHC 33.7 RDW Std Deviation 41.4 RDW Coeff of John 14.3 Plt Count 430 MPV 9.7 Immature Gran % (Auto) 0.600 Neut % (Auto) 70.7 H Lymph % (Auto) 23.6 Bibb % (Auto) 4.8 Eos % (Auto) 0.0 Baso % (Auto) 0.3 Absolute Neuts (auto) 9.4 H Absolute Lymphs (auto) 3.14 Nucleated RBC % 0 Sodium 137 Potassium 3.4 Chloride 97 L Carbon Dioxide 19.2 L Anion Gap 20 H BUN 14 Creatinine 1.22 H Estim Creat Clear Calc 81.50 Est GFR (MDRD) Non-Af 60 BUN/Creatinine Ratio 11.1 Glucose 359 H Serum Osmolality 302 H Calcium 9.7 Phosphorus 1.5 L Magnesium 1.8 Total Bilirubin 0.65 AST 16 ALT 12 Alkaline Phosphatase 91 Total Protein 8.6 H Albumin 4.2 Globulin 4.4 H Albumin/Globulin Ratio 0.9 Lipase 25 b-Hydroxybutyric mmol/L 0.3 Serum , Qual NEGATIVE Urine Color Yellow Urine Clarity Sl. Cloudy Urine pH 5.0 Ur Specific [place] 1.025 Urine Protein 30 H Urine Glucose (UA) 1000 H Urine Ketones 50 H Urine Occult Blood 10 H Urine Nitrite Negative Urine Bilirubin 3 H Urine Urobilinogen 1 H Ur Leukocyte Esterase 500 H Urine RBC 0 SEEN Urine WBC 5-10 SEEN Ur Squamous Epith Cells 10-25 SEEN Urine Bacteria 0 SEEN Urine Mucus 0 SEEN Urine Opiates Screen NEGATIVE U Buprenorphine Qual NEGATIVE Ur Oxycodone Screen NEGATIVE Urine Methadone Screen NEGATIVE Urine Fentanyl Screen NEGATIVE Ur Barbiturates Screen NEGATIVE Ur Phencyclidine Scrn NEGATIVE Ur Amphetamines Screen NEGATIVE U Benzodiazepines Scrn NEGATIVE Urine Cocaine Screen NEGATIVE U Cannabinoids Screen PRESUMPTIVE POSITIVE Critical Care Time Critical Care Time: Yes Critical care time (excluding procedures): 30-74 minutes, Discussing w/Patient &/or Family/CareGiver, Arranging Admission or Transfer, Performing Direct Patient Care at Bedside and - (35 minutes) Discharge Plan Dx/Rx/DC Orders Clinical Impression: Diabetic ketoacidosis, Cyclic vomiting syndrome, History of diabetes mellitus, NAI (acute kidney injury) Disposition Disposition: Acute Care Hospital [facility] Discharge Date/Time: 12/30/24 13:08 What to do if you have Problems For any increased pain, shortness of breath, bleeding, nausea or vomiting, chestpain, or any unexpected problems, contact your Primary Care Provider. Call [facility] ([phone]) or report tothe closest Emergency Room. Call 911 if necessary. 12/30/242231 Cosigner Signature (if applicable): CC: BROOKLYN Solorzano ~ Signed [facility]06-21-2025 History and physical note Author David Bain [facility] Note Date/Time December 30, 2024 1:09 pm [facility] Medical Records Department [address] [place] [address] H&P Exam - Hospitalist 12/30/24 1248 MR#: [id number] Acct: [id number] Name: GHISLAINE GIVENS Rep #:[id number] : 1990 34 From: David Gupta PCP: BROOKLYN Warren, GRIZZLYMAN-C Statu s:ADM IN Location: ICU CVICU20 3-1 HPI - General General Date of Admission: 12/30/24 Date of Service: 12/30/24 Chief Complaint: Patient has been vomiting, nausea and diffuse abdominal pain intermittently going on for 1 month but persistent for last 2 days HPI Narrative GHISLAINE GIVENS, is a 34 F who was recently admitted in November 2024 for stercoral colitis and abdominal pain, nausea vomiting for about a month and was treated with antibiotics and then was seen in GI office on 12/13 came back with worsening of symptoms including nausea vomiting and diffuse abdominal pain for last 2 days. She states she had some bright red streaks of blood in vomiting but was mainly bilious. She has type 2 diabetes mellitus with peripheral neuropathy and right foot ulcerthat required transmetatarsal amputation. She she is on insulin and Trulicity but not taking Trulicity for last 2 to 3 weeks She describes her abdominal pain as generalized nonspecific. Denies acute lowerurinary tract symptoms. No fever. She is moving her bowel. In ED, labs were consistent with DKA therefore admitted. Vitals in normal limit. [facility] Medical History Diabetes GERD (gastroesophageal reflux disease) Wears glasses [...] 20 unit subcut BID doreen betes 08/12/22 12/29/24 History mL) subcutaneous pen (Lantus Solostar U-100 Insulin) albuterol sulfate 90 mcg/actuation 2 puff inhalation Q 4H PRN 11/25/24 Unknown History aerosol inhaler shortness of breath or wheez ing dulaglutide 4.5 mg/0.5 mL 4.5 mg subcut SA 11/25/24 History subcutaneous pen injector (Trulicity) linaclotide 145 mcg capsule 145 mcg PO QAM #30 caps 12/29/24 Rx (Linzess) Allergy/AdvReac Type Severity Reaction Status Date / Time No Known Allergies Allergy Verified 12/30/24 10:23 Family History Other Bleeding disorder Cancer Diabetes Hypertension Surgical History Hx of foot surgery Hx of foot surgery Social History Smoking Status: Former smoker alcohol intake: never substance use type: does not use what type of physical activity do you participate in: none ROS ROS Narrative Constitutional: Reports acute onset of fatigue and weakness. No fever. HEENT: Reports systems reviewed and no addt'l complaints, except as documented Respiratory/Chest: No acute shortness of breath or respiratory distress or wheezing. CVS: No chest pain/pressure. No history of cardiac disease Gastrointestinal: As described in HPI. History of cyclical vomiting. Genitourinary: Denies burning urination or new urinary tract symptoms Musculoskeletal: Denies acute joint pain or limited range of motion. No acute injury Neurologic: Denies seizure-like symptoms. Psychiatric: Anxiety and depression. History of substance use in the past including marijuana and ecstasy skin: No ulcer. No rash Endocrinology: Reports systems reviewed and no addt'l complaints, except as documented Hematologic/Lymphatic: Reports systems reviewed and no addt'l complaints, exceptas documented Rest 14 ROS are negative except as mentioned in HPI Vital Signs Vital Signs Vital Signs: 12/30/24 10:25 12/30/24 12:26 12/30/24 12:35 Temperature 97.4 F L 97.4 F L Temperature Source Oral Pulse Rate 97 94 94 Respiratory Rate 18 18 Blood Pressure 133/96 H 126/93 H 126/93 H Blood Pressure Mean 108 104 104 Pulse Ox 96 96 Oxygen Delivery Method Room Air Weight Weight: 233 lb 11.04 oz Body Mass Index (BMI) 37.7 Physical Exam Narrative General: Alert, Oriented x3, Cooperative HEENT: Atraumatic, PERRLA, EOMI, Normocephalic. Oral: Oral mucosa dry. No Gingival or Mucosal Lesions/ Ulcerations Neck: Supple, No JVD, Negative Carotid Bruits Chest wall/Lungs: Air entry equal in bilateral lung bases. No crepitation/rhonchi Cardiovascular: Regular rate and rhythm, Normal S1,S2, No M/G/R Abdomen: Bowel Sounds Present, Soft, mild diffuse tenderness. Non-Distended : No dysuria. No renal angle tenderness. No suprapubic tenderness. Extremities: No edema, Capillary Refill Less than 3 Seconds Skin: No rashes, No breakdown Musculoskeletal: No Tenderness to Palpation of Joints or Extremities. Status post right TMA Neurological: Cranial nerves II-XII grossly intact, DTR 2+/4. No acute focal neurological deficit. Psych/Mental Status: Flat affect, crying Results Lab / Micro Data 12/30/24 10:50 12/30/24 10:50 Labs: Laboratory Results - last 24 hr 12/30/24 10:50: WBC 13.3 H, RBC 4.79, Hgb 13.2, Hct 39.2, MCV 81.8, MCH 27.6, MCHC 33.7, RDW Std Deviation 41.4, RDW Coeff of John 14.3, Plt Count 430, MPV 9.7, Immature Gran % (Auto) 0.600, Neut % (Auto) 70.7 H, Lymph % (Auto) 23.6, Bibb % (Auto) 4.8, Eos % (Auto) 0.0, Baso % (Auto) 0.3, Absolute Neuts (auto) 9.4 H, Absolute Lymphs (auto) 3.14, Nucleated RBC % 0, Sodium 137, Potassium 3.4, Chloride 97 L, Carbon Dioxide 19.2 L, Anion Gap 20 H, BUN 14, Creatinine 1.22 H, Estim Creat Clear Calc 81.50, Est GFR (MDRD) Non-Af 60, BUN/Creatinine Ratio 11.1, Glucose 359 H, Calcium 9.7, Total Bilirubin 0.65, AST 16, ALT 12, Alkaline Phosphatase 91, Total Protein 8.6 H, Albumin 4.2, Globulin 4.4 H, Albumin/Globulin Ratio 0.9, Lipase 25, Serum , Qual NEGATIVE 12/30/24 11:32: Urine Color Yellow, Urine Clarity Sl. Cloudy, Urine pH 5.0, Ur Specific [place] 1.025, Urine Protein 30 H, Urine Glucose (UA) 1000 H, Urine Ketones 50 H, Urine Occult Blood 10 H, Urine Nitrite Negative, Urine Bilirubin 3H, Urine Urobilinogen 1 H, Ur Leukocyte Esterase 500 H, Urine RBC 0 SEEN, Urine WBC 5-10 SEEN, Ur Squamous Epith Cells 10-25 SEEN, Urine Bacteria 0 SEEN, Urine Mucus 0 SEEN Assessment & Plan Assessment/Plan (1) Diabetic ketoacidosis: QUALIFIERS: Diabetes mellitus type: type 2 Diabetes mellitus complication detail: without coma Qualified Code(s): E11.10 - Type 2 diabetes mellitus with ketoacidosis without coma (2) NAI (acute kidney injury): PLAN: Plan This is a 34-year-old female being admitted for nausea vomiting and generalized nonspecific abdominal pain consistent with DKA. 1. DKA with history of DM type II, complicated with peripheral neuropathy, diabetic ulcer in the past right foot status post TMA: Patient is being admittedin ICU. Labs shows bicarb 19, AG 20, K3.4. Serum magnesium and phosphorus and ABG ordered. No ABG. Glucose 359 in BMP. Patient had 2 L of IV fluid normal saline bolus in ED and then started on IV fluid and insulin drip as per DKA protocol. 2. Nausea/vomiting/generalized abdominal pain probably due to DKA: She has history of cyclical vomiting disorder and was admitted for stercoral colitis in December 03. Completed antibiotic. Mild leukocytosis but no fever probably due to DKA. History of constipation but moving her bowels. Continue stool softener 3. Chronic asthma, exact classification unclear probably intermittent asthma: Continue as needed albuterol. Not clinic asthma exacerbation 4. Anxiety, insomnia and depression and history of substance use disorder: Xanax 0.25 mg 3 times daily as needed ordered. Previous U tox was positive of marijuana and ecstasy. U tox is ordered. 5. Obesity grade 3: BMI is 37.7 with comorbidities as mentioned above. Patientnot taking Trulicity for 2 weeks. Weight loss counseling done. Stunner consult DVT prophylaxis, low risk: Early ambulation encouraged Living will/advanced directive/end of life care: Patient does not have living will or advanced directive. She does not have the year power of assistant district attorney for health. After discussion of benefits/risks procedures involved with full code,DNR CC arrest and DNR CC, the patient opted for full code. Patient does want artificial life support including intubation, tube feed, ventilator and/chest compression, central venous catheter, vasopressor and DC shock if needed Total time spent in [id number] encounter in discussion of advanced directive 17 minutes. Charges/Coding Visit Charges Inpatient E&M: 62968 Init Hosp L3 Procedures Hospitalists Procedures: 41217 Advncd Care Plan 30 Min 12/30/24 1309 <Electronically signed by David Bain MD> Cosigner Signature (if applicable): CC: BROOKLYN GRIZZLYMAN-C Amy Solorzano; Dr. David Bain MD~ Signed [facility] Work Phone: [phone]) 597-602406-21-2025 History and physical note [facility] Medical Records Department [address] [place] [address] H&P Exam - Hospitalist 12/30/24 1248 MR#: [id number] Acct: [id number] Name: GHISLAINE GIVENS Rep #:[id number] : 1990 34 From: David Gupta PCP: BROOKLYN Warren, GRIZZLYMAN-C Statu s:ADM IN Location: ICU CVICU20 3-1 HPI - General General Date of Admission: 12/30/24 Date of Service: 12/30/24 Chief Complaint: Patient has been vomiting, nausea and diffuse abdominal pain intermittently going on for 1 month but persistent for last 2 days HPI Narrative GHISLAINE GIVENS, is a 34 F who was recently admitted in November 2024 for stercoral colitis and abdominalpain, nausea vomiting for about a month and was treated with antibiotics and then was seen in GI office on 12/13 came back with worsening of symptoms including nausea vomiting and diffuse abdominal pain for last 2 days. She states she had some bright red streaks of blood in vomiting but was mainly bilious. She has type 2 diabetes mellitus with peripheral neuropathy and right foot ulcerthat required transmetatarsal amputation. She she is on insulin and Trulicity but not taking Trulicity for last 2 to 3 weeks She describes her abdominal pain as generalized nonspecific. Denies acute lowerurinary tract symptoms. No fever. She is moving her bowel. In ED, labs were consistent with DKA therefore admitted. Vitals in normal limit. [facility] Medical History Diabetes GERD (gastroesophageal reflux disease) Wears glasses [...] 20 unit subcut BID doreen betes 08/12/22 12/29/24 History mL) subcutaneous pen (Lantus Solostar U-100 Insulin) albuterol sulfate 90 mcg/actuation 2 puff inhalation Q 4H PRN 11/25/24 Unknown History aerosol inhaler shortness of breath or wheez ing dulaglutide 4.5 mg/0.5 mL 4.5 mg subcut SA 11/25/24 History subcutaneous pen injector (Trulicity) linaclotide 145 mcg capsule 145 mcg PO QAM #30 caps 12/29/24 Rx (Linzess) Allergy/AdvReac Type Severity Reaction Status Date / Time No Known Allergies Allergy Verified 12/30/24 10:23 Family History Other Bleeding disorder Cancer Diabetes Hypertension Surgical History Hx of foot surgery Hx of foot surgery Social History Smoking Status: Former smoker alcohol intake: never substance use type: does not use what type of physical activity do you participate in: none ROS ROS Narrative Constitutional: Reports acute onset of fatigue and weakness. No fever. HEENT: Reports systems reviewed and no addt'l complaints, except as documented Respiratory/Chest: No acute shortness of breath or respiratory distress or wheezing. CVS: No chest pain/pressure. No history of cardiac disease Gastrointestinal: As described in HPI. History of cyclical vomiting. Genitourinary: Denies burning urination or new urinary tract symptoms Musculoskeletal: Denies acute joint pain or limited range of motion. No acute injury Neurologic: Denies seizure-like symptoms. Psychiatric: Anxiety and depression. History of substance use in the past including marijuana and ecstasy skin: No ulcer. No rash Endocrinology: Reports systems reviewed and no addt'l complaints, except as documented Hematologic/Lymphatic: Reports systems reviewed and no addt'l complaints, exceptas documented Rest 14 ROS are negative except as mentioned in HPI Vital Signs Vital Signs Vital Signs: 12/30/24 10:25 12/30/24 12:26 12/30/24 12:35 Temperature 97.4 F L 97.4 F L Temperature Source Oral Pulse Rate 97 94 94 Respiratory Rate 18 18 Blood Pressure 133/96 H 126/93 H 126/93 H Blood Pressure Mean 108 104 104 Pulse Ox 96 96 Oxygen Delivery Method Room Air Weight Weight: 233 lb 11.04 oz Body Mass Index (BMI) 37.7 Physical Exam Narrative General: Alert, Oriented x3, Cooperative HEENT: Atraumatic, PERRLA, EOMI, Normocephalic. Oral: Oral mucosa dry. No Gingival or Mucosal Lesions/ Ulcerations Neck: Supple, No JVD, Negative Carotid Bruits Chest wall/Lungs: Air entry equal in bilateral lung bases. No crepitation/rhonchi Cardiovascular: Regular rate and rhythm, Normal S1,S2, No M/G/R Abdomen: Bowel Sounds Present, Soft, mild diffuse tenderness. Non-Distended : No dysuria. No renal angle tenderness. No suprapubic tenderness. Extremities: No edema, Capillary Refill Less than 3 Seconds Skin: No rashes, No breakdown Musculoskeletal: No Tenderness to Palpation of Joints or Extremities. Status post right TMA Neurological: Cranial nerves II-XII grossly intact, DTR 2+/4. No acute focal neurological deficit. Psych/Mental Status: Flat affect, crying Results Lab / Micro Data 12/30/24 10:50 12/30/24 10:50 Labs: Laboratory Results - last 24 hr 12/30/24 10:50: WBC 13.3 H, RBC 4.79, Hgb 13.2, Hct 39.2, MCV 81.8, MCH 27.6, MCHC 33.7, RDW Std Deviation 41.4, RDW Coeff of John 14.3, Plt Count 430, MPV 9.7, Immature Gran % (Auto) 0.600, Neut % (Auto) 70.7 H, Lymph % (Auto) 23.6, Bibb % (Auto) 4.8, Eos % (Auto) 0.0, Baso % (Auto) 0.3, Absolute Neuts (auto) 9.4 H, Absolute Lymphs (auto) 3.14, Nucleated RBC % 0, Sodium 137, Potassium 3.4, Chloride 97 L, Carbon Dioxide 19.2 L, Anion Gap 20 H, BUN 14, Creatinine 1.22 H, Estim Creat Clear Calc 81.50, Est GFR (MDRD) Non-Af 60, BUN/Creatinine Ratio 11.1, Glucose 359 H, Calcium 9.7, Total Bilirubin 0.65, AST 16, ALT 12, Alkaline Phosphatase 91, Total Protein 8.6 H, Albumin 4.2, Globulin 4.4 H, Al bumin/Globulin Ratio 0.9, Lipase 25, Serum , Qual NEGATIVE 12/30/24 11:32: Urine Color Yellow, Urine Clarity Sl. Cloudy, Urine pH 5.0, Ur Specific [place] 1.025, Urine Protein 30 H, Urine Glucose (UA) 1000 H, Urine Ketones 50 H, Urine Occult Blood 10 H, Urine Nitrite Negative, Urine Bilirubin 3H, Urine Urobilinogen 1 H, Ur Leukocyte Esterase 500 H, Urine RBC 0 SEEN, Urine WBC 5-10 SEEN, Ur Squamous Epith Cells 10-25 SEEN, Urine Bacteria 0 SEEN, Urine Mucus 0 SEEN Assessment & Plan Assessment/Plan (1) Diabetic ketoacidosis: QUALIFIERS: Diabetes mellitus type: type 2 Diabetes mellitus complication detail: without coma Qualified Code(s): E11.10 - Type 2 diabetes mellitus with ketoacidosis without coma (2) NAI (acute kidney injury): PLAN: Plan This is a 34-year-old female being admitted for nausea vomiting and generalized nonspecific abdominal pain consistent with DKA. 1. DKA with history of DM type II, complicated with peripheral neuropathy, diabetic ulcer in the past right foot status post TMA: Patient is being admittedin ICU. Labs shows bicarb 19, AG 20, K3.4. Serum magnesium and phosphorus and ABG ordered. No ABG. Glucose 359 in BMP. Patient had 2 L of IV fluid normal saline bolus in ED and then started on IV fluid and insulin drip as per DKA protocol. 2. Nausea/vomiting/generalized abdominal pain probably due to DKA: She has history of cyclical vomiting disorder and was admitted for stercoral colitis in December 03. Completed antibiotic. Mild leukocytosis but no fever probably due to DKA. History of constipation but moving her bowels. Continue stool softener 3. Chronic asthma, exact classification unclear probably intermittent asthma: Continue as needed albuterol. Not clinic asthma exacerbation 4. Anxiety, insomnia and depression and history of substance use disorder: Xanax 0.25 mg 3 times daily as needed ordered. Previous U tox was positive of marijuana and ecstasy. U tox is ordered. 5. Obesity grade 3: BMI is 37.7 with comorbidities as mentioned above. Patientnot taking Trulicity for 2 weeks. Weight loss counseling done. Stunner consult DVT prophylaxis, low risk: Early ambulation encouraged Living will/advanced directive/end of life care: Patient does not have living will or advanced directive. She does not have the [facility] power of assistant district attorney for health. After discussion of benefits/risks procedures involved with full code,DNR CC arrest and DNR CC, the patient opted for full code. Patient does want artificial life support including intubation, tube feed, ventilator and/chest compression, central venous catheter, vasopressor and DC shock if needed Total time spent in mafl-zf-ayvd encounter in discussion of advanced directive 17 minutes. Charges/Coding Visit Charges Inpatient E&M: 69333 Init Hosp L3 Procedures Hospitalists Procedures: 33534 Advncd Care Plan 30 Min 12/30/24 1309 Cosigner Signature (if applicable): CC: C GRIZZLYMAN-C Amy Solorzano; Dr. David Bain MD~ Signed [facility]06-16-2025 Radiology Diagnostic study note [facility] Imaging Services [address] [place], [place] [address] Abdomen Limited MR#: [id number] Acct: [id number] Name: GHISLAINE GIVENS Rep #: [id number] : 1990 F 34 From: Yamila Mcginnis MD PCP: BROOKLYN Warren, GRIZZLYMAN-C Status: REG CLI Study:Abdomen Limited Date of Exam: 12/10 01/03 Exam# [id number] Ordering Dr: Nayana Peter PROCEDURE: ABDOMEN LIMITED [...] of cholelithiasis or acute cholecystitis. [facility] CC: Sara Solorzano; MIGUEL A South ~ Family Development Extension Specialist: Signed [facility]05-20-2025 Discharge summary [facility] Medical Records Department [address] [place] [address] Discharge Summary 11/28/24 1203 MR#: [id number] Acct: [id number] Name: GHISLAINE GIVENS Rep #:[id number] : 1990 34 From: Gale Lr DO PCP: BROOKLYN Warren NP-C Statu s:ADM IN Location: [facility] RV008-5 Providers Date of Admission: 11/25/24 Date of [...] pen (Lantus Solostar U-100 Insulin) 20 unit subcutBID diabetes 08/12/22 trazodone 300 mg tablet 200 mg PO QHS PRN insomnia 07/16/23 albuterol sulfate 90 mcg/actuation aerosol inhaler 2 puff inhalation Q4H PRN shortness of breath orwheezing 11/25/24 dulaglutide 4.5 mg/0.5 mL subcutaneous pen [...] who presented to the emergency department at [facility] on 11/25/2024 with a chief complaint of abdominal pain and constipation. Patient does havea history of diabetes. She stated that she had struggled with constipation over the years and takeslaxatives. 3 days prior to presentation she took a laxative due to constipation and subsequently started having diarrhea. She also complained of cramping and was worried that she may have fecal impaction. She also complained of nausea and vomiting. She reported that her abdominal pain was helped bytaking walks and getting in the hot shower. She did admit to a history of cannabis use and reportedthat her last use was probably on Wednesday however she would not 100% certain. Vital signs on presentation showed temperature 96.8, heart rate 112, respiratory 20, blood pressure is 121/91 pulse ox was99% room air. She had leukocytosis white count [...] fatty infiltration. The patient was admitted to [facility] with stercoral proctocolitis and overflow diarrheain the [...] acute abnormality was noted and her constipation hadresolved. Patient took frequent showers when she was hospitalized and walked the hallways without difficulty. On 11/28/2024 I went in to reevaluate her and she appeared comfortable and sleeping when Iwalked in the room however when sherealized I [...] (Auto) 49.8, Lymph % (Auto) 43.0 H, Bibb % (Auto) 5.3, Eos % (Auto) 0.5, [...] as compared to prior study. Reading Location: [facility] D/C Instructions Discharge Diet: 1800 Calorie [...] tomorrow to set up appointment) Amy Solorzano, GRIZZLYMAN-C [Primary Care Provider] - In 1 Week Disposition Disposition (needs filled in before D/C Order can be placed): Home, Self Care Charges/Coding Visit Charges Inpatient E&M: 79274 Disch Hosp >30min 11/28/24 1231 Cosigner Signature (if applicable): CC: BROOKLYN GRIZZLYMAN-C Amy Solorzano; Dr. Gale Lr, DO~ Signed [facility]05-20-2025 [facility] Medical Records Department [address] [place] [address] Discharge Summary 11/28/24 1203 MR#: [id number] Acct: [id number] Name: GHISLAINE GIVENS Rep #: [id number] : 1990 34 From: Gale Lr DO PCP: BROOKLYN Warren, PATRICE Status:ADM IN Location: [facility] MH210-7 Providers Date of Admission: 11/25/24 Date of Discharge: 11/28/24 Primary Care Physician: BROOKLYN Warren, PATRICE Consultations 11/25/24 15:14 Consult: General Surgery Routine [...] who presented to the emergency department at [facility] on 11/25/2024 with a chief complaint [...] of care with a (more content not included)...[facility]05-20-2025 Progress note Author Clare Loo [facility] Note Date/Time November 28, 2024 8:41a m [facility] Medical Records Department [address] [place] [address] Progress Note - Surgery 11/28/24 0757 MR#: [id number] Acct: [id number] Name: GHISLAINE GIVENS Rep #:[id number] : 1990 34 From: Clare GRADY PA-C PCP: BROOKLYN Warren, GRIZZLYMAN-C Statu s:ADM IN Location: [place] [address] Subjective Subjective Patient was walking the hallway [...] (Auto) 49.8, Lymph % (Auto) 43.0 H, Bibb % (Auto) 5.3, Eos % (Auto) 0.5, [...] as compared to prior study. Reading Location: [place] [address] Physical Exam GI GI Narrative: Abdomen- soft, [...] 1 week Charges/Coding Visit Charges Inpatient E&M: 46342 Subs Hosp L2 11/28/24 0841 <Electronically signed by Clare GRADY PA-C> Cosigner Signature (if applicable): CC: ~ Signed [facility] Work Phone: 1(864) 641-355805-20-2025 Progress note [facility] Medical Records Department [address] [place] [address] Progress Note - Surgery 11/28/24 0757 MR#: [id number] Acct: [id number] Name: GHISLAINE GIVENS Rep #:[id number] : 1990 34 From: Clare GRADY PA-C PCP: BROOKLYN Warren, GRIZZLYMAN-C Statu s:ADM IN Location: [facility] MC883-6 Subjective Subjective Patient was walking the hallway [...] (Auto) 49.8, Lymph % (Auto) 43.0 H, Bibb % (Auto) 5.3, Eos % (Auto) 0.5, [...] as compared to prior study. Reading Location: [facility] Physical Exam GI GI Narrative: Abdomen- [...] 1 week Charges/Coding Visit Charges Inpatient E&M: 26523 Subs Hosp L2 11/28/24 0841 Cosigner Signature (if applicable): CC: ~ Signed [facility]05-19-2025 Progress note Author Gale Lr [facility] Note Date/Time November 27, 2024 3:45p m [facility] Medical Records Department [address] [place] [address] Progress Note - Hospitalist 11/27/24 0759 MR#: [id number] Acct: [id number] Name: GHISLAINE GIVENS Rep #:[id number] : 1990 34 From: Gale Lr DO PCP: BROOKLYN Warren, GRIZZLYMAN-C Statu s:ADM IN Location: [facility] PD623-0 Reason for Visit Reason for Visit: Abdominal [...] (Auto) 75.9 H, Lymph % (Auto) 18.1L, Bibb % (Auto) 5.2, Eos % (Auto) 0.0, [...] fecal impaction of the rectum. Reading Location: [facility] Physical Exam Const alert, oriented x3 [...] cessation discussed with patient Acute proctitis/colitis - Tiller to be stercoral colitis from severe constipation [...] Full code Charges/Coding Visit Charges Inpatient E&M: 65254 Subs Hosp L2 11/27/24 3290 <Electronically signed by Gale Lr DO> Cosigner Signature (if applicable): CC: ~ Signed [facility] Work Phone: 1(907) 148-572405-19-2025 Progress note Author Clare Loo [facility] Note Date/Time November 27, 2024 2:35p m [facility] Medical Records Department [address] [place] [address] Progress Note - Surgery 11/27/24 0845 MR#: [id number] Acct: [id number] Name: GHISLAINE GIVENS Rep #:[id number] : 1990 34 From: Clare GRADY PA-C PCP: BROOKLYN Warren, GRIZZLYMAN-C Statu s:ADM IN Location: [facility] AJ107-0 Subjective Subjective Patient evaluated rolling restlessly in [...] 11/27/24 23:59 23:59 23:59 Intake Total 2049 181 / 1950 330 / 330 Output Total [...] (Auto) 75.9 H, Lymph % (Auto) 18.1L, Bibb % (Auto) 5.2, Eos % (Auto) 0.0, [...] this patient Charges/Coding Visit Charges Inpatient E&M: 38879 Subs Hosp L2 11/27/24 0853 <Electronically signed [...] Cosigner Signature (if applicable): cc: ~* Signed [facility] Work Phone: 1(388) 269-650405-19-2025 Progress note [facility] Medical Records Department [address] [place] [address] Progress Note - Hospitalist 11/27/24 0823 MR#: [id number] Acct: [id number] Name: GHISLAINE GIVENS Rep #:[id number] : 1990 34 From: Gale Lr DO PCP: Amy Solorzano Sara, GRIZZLYMAN-C Statu s:ADM IN Location: [facility] UM794-4 Reason for Visit Reason for Visit: Abdominal [...] 11/27/24 23:59 23:59 23:59 Intake Total 2049 181 / 1949 330 / 330 Output Total 100 / [...] (Auto) 75.9 H, Lymph % (Auto) 18.1L, Bibb % (Auto) 5.2, Eos % (Auto) 0.0, [...] fecal impaction of the rectum. Reading Location: [facility] Physical Exam Const alert, oriented x3 and [...] cessation discussed with patient Acute proctitis/colitis - Tiller to be stercoral colitis from severe constipation [...] Full code Charges/Coding Visit Charges Inpatient E&M: 63464 Subs Hosp L2 11/27/24 0667 Cosigner Signature (if applicable): CC: ~ Signed [facility]05-19-2025 Progress note [facility] Medical Records Department [address] [place] [address] Progress Note - Surgery 11/27/24 0845 MR#: [id number] Acct: [id number] Name: GHISLAINE GIVENS Rep #:[id number] : 1990 34 From: Clare GRADY PA-C PCP: BROOKLYN Warren, GRIZZLYMAN-C Statu s:ADM IN Location: [facility] BX720-2 Subjective Subjective Patient evaluated rolling restlessly in [...] 11/26/24 11/27/24 23:59 23:59 23:59 Intake Total 2050 / 2050 1810 / 1950 330 / 330 Output [...] (Auto) 75.9 H, Lymph % (Auto) 18.1L, Bibb % (Auto) 5.2, Eos % (Auto) 0.0, [...] this patient Charges/Coding Visit Charges Inpatient E&M: 30088 Subs Hosp L2 11/27/24 2808 Cosigner Signature (if applicable): CC: ~ Signed [...] Cosigner Signature (if applicable): cc: ~* Signed [facility]05-19-2025 Radiology Diagnostic study note [facility] Imaging Services [address] [place], [place] [address] Abdomen/Pelvis WITH Contrast MR#: [id number] Acct: [id number] Name: GHISLAINE GIVENS Rep #: [id number] : 1990 F 34 From: Fortino Sadler MD PCP: Amy Solorzano Sara, GRIZZLYMAN-C Status: ADM IN Study:Abdomen/Pelvis WITH Contrast Date of Ex am: 11/27/24 Exam# [id number] Ordering Dr: Clare Loo PA-C PROCEDURE: ABDOMEN/PELVIS [...] as compared to prior study. Reading Location: [facility] CC: ESCOBAR Loo; BROOKLYN Solorzano ~ Family Development Extension Specialist: Signed [facility]05-18-2025 Progress note Author Brenda [facility] Note Date/Time November 26, 2024 9:20a m [facility] Medical Records Department [address] [place] [address] Progress Note 11/26/24 0909 MR#: [id number] Acct: [id number] Name: GHISLAINE GIVENS Rep #:[id number] : 1990 34 From: Brenda Rao MD PCP: BROOKLYN Warren, PATRICE Statu s:ADM IN Location: [place] [address]-1 Subjective Subjective Patient seen and examined. She [...] 79.5 H, Lymph % (Auto) 11.4 L, Bibb % (Auto) 8.0, Eos % (Auto) 0.1, [...] Clarity Cloudy, Urine pH 6.0, Ur Specific [place] 1.025, Urine Protein 30 H, Urine Glucose [...] (Auto) 73.4 H, Lymph % (Auto) 19.4, Bibb % (Auto) 6.2, Eos % (Auto) 0.2, [...] the colon consistent with constipation. Reading Location: [facility] Abdomen/Pelvis CT 11/25/24 11:32 IMPRESSION: 1. Fecal impaction with apparent wall thickening of the distal colon and rectumsuggesting proctitis and colitis. Clinical correlation is recommended. 2. Hepatomegaly with fatty infiltration. Reading Location: [facility] KUB X-Ray 11/26/24 08:10 IMPRESSION: Constipation with suggestion of fecal impaction of the rectum. Reading Location: [facility] Physical Exam Const alert and oriented [...] Full code Charges/Coding Visit Charges Inpatient E&M: 97531 Subs Hosp L2 11/26/24 0920 <Electronically signed by Brenda Rao MD> Brenda Rao MD Cosigner Signature (if applicable): CC: ~ Signed [facility] Work Phone: 1(718) 662-789305-18-2025 History and physical note Author Brenda [facility] Note Date/Time November 26, 2024 7:54a m [facility] Medical Records Department [address] [place] [address] H&P Exam - Hospitalist 11/25/24 1324 MR#: [id number] Acct: [id number] Name: GHISLAINE GIVENSREBA Rep #:[id number] : 1990 34 From: Brenda Rao MD PCP: Amy Solorzano, [facility], GRIZZLYMAN-C Statu s:ADM IN Location: [facility] JB917-8 HPI - General General Date of Admission: [...] of severe constipation with likely overflow diarrhea. [facility] Medical History (Updated 11/25/24 @ 15:05 by [...] 79.5 H, Lymph % (Auto) 11.4 L, Bibb % (Auto) 8.0, Eos % (Auto) 0.1, [...] Clarity Cloudy, Urine pH 6.0, Ur Specific [place] 1.025, Urine Protein 30 H, Urine Glucose [...] the colon consistent with constipation. Reading Location: [facility] Abdomen/Pelvis CT 11/25/24 11:32 IMPRESSION: 1. Fecal impaction with apparent wall thickening of the distal colon and rectumsuggesting proctitis and colitis. Clinical correlation is recommended. 2. Hepatomegaly with fatty infiltration. Reading Location: [facility] Assessment & Plan Assessment/Plan (1) Colitis: (2) Acute proctitis: (3) Fecal impaction: PLAN: Plan # Stercoral proctocolitis with overflow diarrhea in the setting of severe constipation with fecal impaction * Admit to [facility]. Admitted with a complaint of abdominal pain. [...] Full code Charges/Coding Visit Charges Inpatient E&M: 66163 Init Hosp L2 11/26/24 075 <Electronically signed by Brenda Rao MD> Cosigner Signature (if applicable): CC: BROOKLYN GRIZZLYMAN-C Amy Solorzano; Dr. Brenda Rao MD~ Signed [facility] Work Phone: 1(865) 888-837005-18-2025 Consult note Author Annalise [facility] Note Date/Time November 26, 2024 7:47a m [facility] Medical Records Department [address] [place] [address] Consultation - Surgical 11/25/242050 MR#: [id number] Acct: [id number] Name: GHISLAINE GIVENS Rep #:[id number] : 1990 34 From: Annalise Welch MD PCP: BROOKLYN Warren, GRIZZLYMAN-C Statu s:ADM IN Location: [place] [address] Assessment & Plan Assessment/Plan (1) Fecal impaction: (2) Acute proctitis: PLAN: Plan Discussed with patient would recommend additional enema to help soften the bowelof stool in the rectum. Along with additional ones after that. Continue IV Zosyn Discussed with patient plan to DC with laxatives. Annalise Welch M.D. Pager: [phone] [facility] [address] [place] [address], [address] [place] [address] Office: [phone] HPI Consult Data Date of Consult: 11/26/24 [...] and did have some results with it. [facility] Medical History (Updated 11/25/24 @ 15:05 by [...] 79.5 H, Lymph % (Auto) 11.4 L, Bibb % (Auto) 8.0, Eos % (Auto) 0.1, [...] Clarity Cloudy, Urine pH 6.0, Ur Specific [place] 1.025, Urine Protein 30 H, Urine Glucose [...] the colon consistent with constipation. Reading Location: [facility] Abdomen/Pelvis CT 11/25/24 11:32 IMPRESSION: 1. Fecal impaction with apparent wall thickening of the distal colon and rectumsuggesting proctitis and colitis. Clinical correlation is recommended. 2. Hepatomegaly with fatty infiltration. Reading Location: [facility] Charges/Coding Visit Charges Inpatient E&M: 46125 Init Hosp L3 11/26/24 0747 <Electronically signed by Annalise Welch MD> Cosigner Signature (if applicable): CC: BROOKLYN GRIZZLYMAN-C Amy Solorzano~ Signed [facility] Work Phone: 1(247) 837-830805-18-2025 Progress note Author Annalise [facility] Note Date/Time November 26, 2024 7:47a m [facility] Medical Records Department [address] [place] [address] Progress Note - Surgery 11/26/24 0741 MR#: [id number] Acct: [id number] Name: GHISLAINE GIVENS Rep #:[id number] : 1990 34 From: Annalise Welch MD PCP: BROOKLYN Warren, GRIZZLYMAN-C Statu s:ADM IN Location: [facility] WZ071-9 Subjective Subjective Patient states she did have [...] 79.5 H, Lymph % (Auto) 11.4 L, Bibb % (Auto) 8.0, Eos % (Auto) 0.1, [...] Clarity Cloudy, Urine pH 6.0, Ur Specific [place] 1.025, Urine Protein 30 H, Urine Glucose [...] (Auto) 73.4 H, Lymph % (Auto) 19.4, Bibb % (Auto) 6.2, Eos % (Auto) 0.2, [...] the colon consistent with constipation. Reading Location: [facility] Abdomen/Pelvis CT 11/25/24 11:32 IMPRESSION: 1. Fecal impaction with apparent wall thickening of the distal colon and rectumsuggesting proctitis and colitis. Clinical correlation is recommended. 2. Hepatomegaly with fatty infiltration. Reading Location: [facility] Physical Exam Const oriented x3 and [...] improved from 27-17. Annalise Welch M.D. Pager: [phone] [facility] [address] [place] [address], [facility], [address] [place] [address] Office: [phone] Charges/Coding Multi Select Codes Visit Charges Visit Charges: 81526 Subs Hosp L2 11/26/24 0747 <Electronically signed by Annalise Welch MD> Cosigner Signature (if applicable): CC: ~ Signed [facility] Work Phone: 1(219) 363-750405-18-2025 Progress note [facility] Medical Records Department [address] [place] [address] Progress Note 11/26/24 0909 MR#: [id number] Acct: [id number] Name: GHISLAINE GIVENS Rep #:[id number] : 1990 34 From: Brenda Rao MD PCP: BROOKLYN Warren, GRIZZLYMAN-C Statu s:ADM IN Location: [facility] WB926-4 Subjective Subjective Patient seen and examined. She [...] 79.5 H, Lymph % (Auto) 11.4 L, Bibb % (Auto) 8.0, Eos % (Auto) 0.1, [...] Clarity Cloudy, Urine pH 6.0, Ur Specific [place] 1.025, Urine Protein 30 H, Urine Glucose [...] (Auto) 73.4 H, Lymph % (Auto) 19.4, Bibb % (Auto) 6.2, Eos % (Auto) 0.2, [...] the colon consistent with constipation. Reading Location: [facility] Abdomen/Pelvis CT 11/25/24 11:32 IMPRESSION: 1. Fecal impaction with apparent wall thickening of the distal colon and rectumsuggesting proctitisand colitis. Clinical correlation is recommended. 2. Hepatomegaly with fatty infiltration. Reading Location: [facility] KUB X-Ray 11/26/24 08:10 IMPRESSION: Constipation with suggestion of fecal impaction of the rectum. Reading Location: [facility] Physical Exam Const alert and oriented [...] Full code Charges/Coding Visit Charges Inpatient E&M: 83439 Subs Hosp L2 11/26/24 0920 Brenda Rao MD Cosigner Signature (if applicable): CC: ~ Signed [facility]05-18-2025 Radiology Diagnostic study note [facility] Imaging Services [address] [place] [address] Abdomen Single View MR#: [id number] Acct: [id number] Name: GHISLAINE GIVENS Rep #: [id number] : 1990 F 34 From: Alicja Barfield MD PCP: BROOKLYN Warren, GRIZZLYMAN-C Status: ADM IN Study:Abdomen Single View Date of Exam: 11/26/24 Exam# [id number] Ordering Dr: Annalise Welch MD EXAM: XR Abdomen, 1 View CLINICAL INDICATION: FECAL IMPACTION-RECTUM TECHNIQUE: Frontal supine view of the abdomen/pelvis. COMPARISON: No relevant prior studies available. FINDINGS: GASTROINTESTINAL TRACT: Constipation with suggestion of fecal impaction of the rectum. No dilation. BONES/JOINTS: Unremarkable. No acute fracture. RAD/Abdomen Single View IMPRESSION: Constipation with suggestion of fecal impaction of the rectum. Reading Location: [facility] CC: [facility] GRIZZLYMAN-C Amy Solorzano; Dr. Annalise Welch MD ~ Family Development Extension Specialist: Signed [facility]05-18-2025 History and physical note [facility] Medical Records Department [address] [place] [address] H&P Exam - Hospitalist 11/25/24 1324 MR#: [id number] Acct: [id number] Name: GHISLAINE GIVENS Rep #:[id number] : 1990 34 From: Brenda Rao MD PCP: BROOKLYN Warren, GRIZZLYMAN-C Statu s:ADM IN Location: [facility] VY638-4 HPI - General General Date of Admission: [...] of severe constipation with likely overflow diarrhea. [facility] Medical History (Updated 11/25/24 @ 15:05 by [...] 100 unit/mL (3 20 unit subcut BID doeren betes 08/12/22 11/25/24 History mL) subcutaneous pen [...] 79.5 H, Lymph % (Auto) 11.4 L, Bibb % (Auto) 8.0, Eos % (Auto) 0.1, [...] Clarity Cloudy, Urine pH 6.0, Ur Specific [place] 1.025, Urine Protein 30 H, Urine Glucose [...] the colon consistent with constipation. Reading Location: [facility] Abdomen/Pelvis CT 11/25/24 11:32 IMPRESSION: 1. Fecal impaction with apparent wall thickening of the distal colon and rectumsuggesting proctitisand colitis. Clinical correlation is recommended. 2. Hepatomegaly with fatty infiltration. Reading Location: [facility] Assessment & Plan Assessment/Plan (1) Colitis: (2) Acute proctitis: (3) Fecal impaction: PLAN: Plan # Stercoral proctocolitis with overflow diarrhea in the setting of severe constipation with fecal impaction * Admit to [facility]. Admitted with a complaint of abdominal pain. [...] Full code Charges/Coding Visit Charges Inpatient E&M: 90218 Init Hosp L2 11/26/24 0754 Cosigner Signature (if applicable): CC: C GRIZZLYMAN-C Amy Solorzano; Dr. Brenda Rao MD~ Signed [facility]05-18-2025 Consult note [facility] Medical Records Department [address] [place] [address] Consultation - Surgical 11/25/242050 MR#: [id number] Acct: [id number] Name: GHISLAINE GIVENS Rep #:[id number] : 1990 34 From: Annalise Welch MD PCP: Amy Solorzano, BROOKLYN, GRIZZLYMAN-C Statu s:ADM IN Location: [facility] BQ995-8 Assessment & Plan Assessment/Plan (1) Fecal impaction: (2) Acute proctitis: PLAN: Plan Discussed with patient would recommend additional enema to help soften the bowelof stool in the rectum. Along with additional ones after that. Continue IV Zosyn Discussed with patient plan to DC with laxatives. Annalise Welch M.D. Pager: [phone] [facility] [address] [place] [address], [facility] [address] [place] [id number] Office: [phone] HPI Consult Data Date of Consult: 11/26/24 [...] ER and did havesome results with it. [facility] Medical History (Updated 11/25/24 @ 15:05 by [...] 79.5 H, Lymph % (Auto) 11.4 L, Bibb % (Auto) 8.0, Eos % (Auto) 0.1, [...] Clarity Cloudy, Urine pH 6.0, Ur Specific [place] 1.025, Urine Protein 30 H, Urine Glucose [...] the colon consistent with constipation. Reading Location: [facility] Abdomen/Pelvis CT 11/25/24 11:32 IMPRESSION: 1. Fecal impaction with apparent wall thickening of the distal colon and rectumsuggesting proctitisand colitis. Clinical correlation is recommended. 2. Hepatomegaly with fatty infiltration. Reading Location: [facility] Charges/Coding Visit Charges Inpatient E&M: 05743 Init Hosp L3 11/26/24 0747 Cosigner Signature (if applicable): CC: VSSara GRIZZLYMANPanC Amy Solorzano~ Signed [facility]05-18-2025 Progress note [facility] Medical Records Department [address] [facility] [place] [address] Progress Note - Surgery 11/26/24 0744 MR#: [id number] Acct: [id number] Name: GHISLAINE GIVENS Rep #:[id number] : 1990 34 From: Annalise Welch MD PCP: Amy Solorzano, Sara, GRIZZLYMAN-C Statu s:ADM IN Location: [facility] GA705-4 Subjective Subjective Patient states she did have [...] 79.5 H, Lymph % (Auto) 11.4 L, Bibb % (Auto) 8.0, Eos % (Auto) 0.1, [...] Clarity Cloudy, Urine pH 6.0, Ur Specific [place] 1.025, Urine Protein 30 H, Urine Glucose [...] (Auto) 73.4 H, Lymph % (Auto) 19.4, Bibb % (Auto) 6.2, Eos % (Auto) 0.2, [...] the colon consistent with constipation. Reading Location: [facility] Abdomen/Pelvis CT 11/25/24 11:32 IMPRESSION: 1. Fecal impaction with apparent wall thickening of the distal colon and rectumsuggesting proctitisand colitis. Clinical correlation is recommended. 2. Hepatomegaly with fatty infiltration. Reading Location: [facility] Physical Exam Const oriented x3 and no [...] improved from 27-17. Annalise Welch M.D. Pager: [phone] [facility] [address] [place] [address], Outpatient [place], [address] [place] [address] Office: [phone] Charges/Coding Multi Select Codes Visit Charges Visit Charges: 06722 Subs Hosp L2 11/26/24 0735 Cosigner Signature (if applicable): CC: ~ Signed [facility]05-17-2025 Discharge summary Author Drew Hinson [facility] Note Date/Time November 25, 2024 1:45p m [facility] Medical Records Department [address] [place] [address] Emergency Department Summary 11/25/24 MR#: [id number] Acct: [id number] Name: GHISLAINE GIVENS Rep #:[id number] : 1990 34 From: Drew Hinson MD PCP: BROOKLYN Warren, GRIZZLYMAN-C Statu s:REG ER Location: ED HPI HPI [...] withnot having a bowel movement. It was Thursday, 2 days ago when she took 4 [...] this diagnosis. No exacerbating or alleviating factors. [facility] Medical History Wears glasses History of MRSA [...] 79.5 H Lymph % (Auto) 11.4 L Bibb % (Auto) 8.0 Eos % (Auto) 0.1 [...] Clarity Cloudy Urine pH 6.0 Ur Specific Millwood 1.025 Urine Protein 30 H Urine Glucose [...] the colon consistent with constipation. Reading Location: [facility] Abdomen/Pelvis CT 11/25/24 11:32 IMPRESSION: 1. Fecal impaction with apparent wall thickening of the distal colon and rectumsuggesting proctitis and colitis. Clinical correlation is recommended. 2. Hepatomegaly with fatty infiltration. Reading Location: [facility] Management Discussion w/another healthcare provider: Hospitalist (Dr. Rao) and Sas Architect(Dr. Welch) Discharge Plan Dx/Rx/DC Orders Clinical Impression: Fecal impaction, Acute proctitis, Colitis Disposition Disposition: Acute Care Hospital [facility] What to do if you have Problems For any increased pain, shortness of breath, bleeding, nausea or vomiting, chestpain, or any unexpected problems, contact your Primary Care Provider. Call [facility] ([phone]) or report to the closest Emergency Room. Call 911 if necessary. 11/25/24 1345 <Electronically signed by Drew Hinson MD> Cosigner Signature (if applicable): CC: [facility] GRIZZLYMAN-Sara Solorzano ~ Signed [facility] Work Phone: 1(223) 463-705405-17-2025 Evaluation note* Diagnosis Onset Date Resolution Status Admit Date Abdominal pain acute November 25, 2024 1:38pm Acute proctitis acute November 25, 2024 1:38pm Colitis acute November 25, 2024 1:38pm Diabetes acute November 25, 2024 1:38pm Fecal impaction acute November 25, 2024 1:38pm Nausea & vomiting acute November 1:38pm [facility] Work Phone: 1(141) 320-112105-17-2025 Evaluation note* Diagnosis Onset Date Resolution Status [...] December 7:52am Constipation noneactive December 13 7:52am [facility] Work Phone: 1(674) 116-897605-17-2025 Evaluation note* Diagnosis Onset Date Resolution Status [...] December 7:52am Constipation noneactive December 13 7:52am NAI (acute kidney injury) acute December 30, 2024 12:28pm Diabetic ketoacidosis acute Dec 12:28pm [facility] Work Phone: 1(401) 943-497305-17-2025 Discharge summary Author Drew Hinson [facility] Note Date/Time November 25, 2024 1:45p m [facility] Medical Records Department [address] [place] [address] Emergency Department Summary 11/25/24 MR#: [id number] Acct: [id number] Name: GHISLAINE GIVENS Rep #:[id number] : 1990 34 From: Drew Hinson MD PCP: BROOKLYN Warren, GRIZZLYMAN-C Statu s:REG ER Location: ED HPI HPI [...] this diagnosis. No exacerbating or alleviating factors. [facility] Medical History Wears glasses History of MRSA [...] 79.5 H Lymph % (Auto) 11.4 L Bibb % (Auto) 8.0 Eos % (Auto) 0.1 [...] Clarity Cloudy Urine pH 6.0 Ur Specific [place] 1.025 Urine Protein 30 H Urine Glucose [...] the colon consistent with constipation. Reading Location: [facility] Abdomen/Pelvis CT 11/25/24 11:32 IMPRESSION: 1. Fecal impaction with apparent wall thickening of the distal colon and rectumsuggesting proctitis and colitis. Clinical correlation is recommended. 2. Hepatomegaly with fatty infiltration. Reading Location: [facility] Management Discussion w/another healthcare provider: Hospitalist (Dr. Rao) and Sas Architect(Dr. Welch) Discharge Plan Dx/Rx/DC Orders Clinical Impression: Fecal impaction, Acute proctitis, Colitis Disposition Disposition: Acute Care Hospital [facility] What to do if you have Problems For any increased pain, shortness of breath, bleeding, nausea or vomiting, chestpain, or any unexpected problems, contact your Primary Care Provider. Call [facility] ([phone]) or report to the closest Emergency Room. Call 911 if necessary. 11/25/24 1345 <Electronically signed by Drew Hinson MD> Cosigner Signature (if applicable): CC: BROOKLYN GRIZZLYMAN-C Amy Solorzano ~ Signed [facility] Work Phone: 1(769) 573-300005-17-2025 Discharge summary [facility] Medical Records Department [address] [place] [address] Emergency Department Summary 11/25/24 MR#: [id number] Acct: [id number] Name: GHISLAINE GIVENS Rep #:[id number] : 1990 34 From: Drew Hinson MD PCP: BROOKLYN Warren, GRIZZLYMAN-C Statu s:REG ER Location: ED HPI HPI [...] confirm this diagnosis. Noexacerbating or alleviating factors. [facility] Medical History Wears glasses History of MRSA [...] 79.5 H Lymph % (Auto) 11.4 L Bibb % (Auto) 8.0 Eos % (Auto) 0.1 [...] Clarity Cloudy Urine pH 6.0 Ur Specific [place] 1.025 Urine Protein 30 H Urine Glucose [...] the colon consistent with constipation. Reading Location: [facility] Abdomen/Pelvis CT 11/25/24 11:32 IMPRESSION: 1. Fecal impaction with apparent wall thickening of the distal colon and rectumsuggesting proctitisand colitis. Clinical correlation is recommended. 2. Hepatomegaly with fatty infiltration. Reading Location: [facility] Management Discussion w/another healthcare provider: Hospitalist (Dr. Rao) and Sas Architect(Dr. Welch) Discharge Plan Dx/Rx/DC Orders Clinical Impression: Fecal impaction, Acute proctitis, Colitis Disposition Disposition: [facility] What to do if you have Problems For any increased pain, shortness of breath, bleeding, nausea or vomiting, chestpain, or any unexpected problems, contact your Primary Care Provider. Call [facility] ([phone]) or report tothe closest Emergency Room. Call 911 if necessary. 11/25/24 1345 Cosigner Signature (if applicable): CC: C GRIZZLYMAN-C Amy Solorzano ~ Signed [facility]05-17-2025 Radiology Diagnostic study note [facility] Imaging Services [address] [place] [address] Abdomen/Pelvis W IV Cont ONLY MR#: [id number] Acct: [id number] Name: GHISLAINE GIVENS Rep #: [id number] : 1990 F 34 From: Alicja Barfield MD PCP: BROOKLYN Warren, GRIZZLYMAN-C Status: REG ER Study:Abdomen/Pelvis W IV Cont ONLY Date of E xam: 11/25/24 Exam# [id number] Ordering Dr: Drew Hinson MD EXAM: CT [...] 2. Hepatomegaly with fatty infiltration. Reading Location: [facility] CC: [facility] GRIZZLYMAN-C Amy Solorzano; Dr. Drew Hinson MD ~ Family Development Extension Specialist: Signed [facility]05-17-2025 Radiology Diagnostic study note [facility] Imaging Services [address] [place], [place] [id number] Acute Abdomen Inc Chest MR#: [id number] Acct: [id number] Name: GHISLAINE GIVENS Rep #: [id number] : 1990 F 34 From: Alicja Barfield MD PCP: BROOKLYN Warren, GRIZZLYMAN-C Status: REG ER Study:Acute Abdomen Inc Chest Date of Exam: 11/25/24 Exam# [id number] Ordering Dr: Drew Hinson MD EXAM: XR [...] the colon consistent with constipation. Reading Location: [facility] CC: [facility] GRIZZLYMAN-C Amy Solorzano; Dr. Drew Hinson MD ~ Family Development Extension Specialist: Signed [facility]12-23-2024 NoteHNO ID: [id number] Author: IRAIS HANNA PA Service: ? Author Type: Physician Broomcorn Sorter Type: Progress Notes Filed: 07/03/2024 13:13 Note Text: This note was created using [employer]. Subjective Ghislaine Givens is a 34 year [...] treatment plan were d (more content not included)...[facility]12-23-2024 History of Present illness Narrative* Irais Hanna PA - 07/03/2024 1:11 PM EST This note was created using [employer]. Subjective Ghislaine Givens is a 34 year [...] evaluation. MIGUEL A Goldman documented in this encounterProm[facility]12-[facility] History of Present illness Narrative* Luis Mayes RT(R) - 07/03/2024 12:40 PM EST Radiology [...] PATIENT PRESENTS WITH AN IMPLANTABLE OR ATTACHED DISPLAY FABRICATOR: No RADIOLOGY DEPARTMENT: General X-ray: Exam(s) Completed: Chest X-Ray PERIPHERAL IV DATA: Not applicable SIGNED BY: RT Los(Reji) July 03, 2024 12:58 PM documented in this encounterPromedica Fostoria [facility]12-23-2024 NoteHNO ID: [id number] Author: LUIS MAYES RT(R) Service: Radiology Author Type: Technologist Type: Progress [...] PATIENT PRESENTS WITH AN IMPLANTABLE OR ATTACHED DISPLAY FABRICATOR: No RADIOLOGY DEPARTMENT: General X-ray: Exam(s) Completed: Chest X-Ray PERIPHERAL IV DATA: Not applicable SIGNED BY: RT Los(Reji) July 03, 2024 12:58 [facility]12-16-2024 NoteHNO ID: [id number] Author: FRANTZ AREVALO PA-C Service: ? Author Type: Physician Broomcorn Sorter Type: Progress Notes Filed: 06/26/2024 11:03 Note Text: This note was created using [employer]. Subjective Ghislaine Givens is a 34 year [...] asthma, uncomplicated - ICD9: 493.90, ICD10: J45.20 MIGUE [facility]12-16-2024 History of Present illness Narrative* Frantz Arevalo PA-C - 06/26/2024 10:55 AM EST This note was created using [employer]. Subjective Ghislaine Givens is a 34 year [...] J45.20 Frantz Arevalo PA-C documented in this encounterPromedica [facility]01-12-2024 Procedure [facility]12-21-2023 History of Present illness Narrative* Andres Galaviz APRN.[facility] - 07/01/2023 10:42 AM EST Images [...] ophthalmology. Appointment scheduled today 115. Andres Galaviz APRN.[employer] DIE COORDINATOR documented in this encounterPromedica [facility]12-16-2023 Discharge summary Author Alex Christiansen [facility] June 26, 2023 6:14pm Note Date/Time June 26, 2023 12:09pm [facility] Medical Records Department [address] [place] [address] Emergency Department Summary 06/26/23 MR#: [id number] Acct: [id number] Name: GHISLAINE GIVENS Rep #:[id number] : 1990 33 From: Taiwo Chen MD [...] pharmacy. She denies any other new symptoms. [facility] Medical History Anxiety Asthma Constipation Depression Diabetes [...] mg rectal suppository (Dulcolax (bisacodyl)) 10 mg KS DAILY 3 days #12 ea 01/15/23 [Rx [...] % (Auto) 63.6 Lymph % (Auto) 30.6 Bibb % (Auto) 4.3 Eos % (Auto) 0.2 [...] [Dulcolax (bisacodyl)] 10 mg suppository 10 mg KS DAILY 3 Days Qty: 12 0RF Rx [...] your Primary Care Provider. Call [facility] ([phone]) or report to the closest Emergency Room. Call 911 if necessary. 06/26/23 1641 <Electronically signed by Taiwo Chen MD> Cosigner Signature (if applicable): CC: Dr. Sophy Gibbons ~ Signed ADDENDUM by Dr. Alex Christiansen DO on 06/26/23 at 1407 Patient signed out to me for follow-up. [...] applicable): cc: Dr. Sophy Gibbons ~* Signed [facility] Work Phone: 1(390) 146-222410-29-2023 Progress note Author Rickey Gifford [facility] May 09, 2023 11:46am Note Date/Time May 09, 2023 7 :55am [facility] Medical Records Department [address] [place] [address] Progress Note - Hospitalist 05/09/23 0752 MR#: [id number] Acct: [id number] Name: GHISLAINE GIVENS Rep #:[id number] : 1990 33 From: Rickey Gifford DO PCP: Care Physician,No Primary Status :ADM IN Location: [address] Reason for Visit Reason for Visit: Diagnoses [...] does have constipation. Also reviewing records through [facility]. Charges/Coding Visit Charges Inpatient E&M: 59334 Subs Hosp L3 05/09/23 1146 <Electronically signed by Rickey Gifford DO> Cosigner Signature (if applicable): CC: ~ Signed [facility] Work Phone: 1(554) 318-283210-29-2023 Progress note Author Abdirizak Forrest [facility] May 09, 2023 10:47am Note Date/Time May 09, 2023 1 0:19am [facility] Medical Records Department [address] [place] [address] Progress Note - Surgery 05/09/23 1018 MR#: [id number] Acct: [id number] Name: GHISLAINE GIVENS Rep #:[id number] : 1990 33 From: Abdirizak COELLO PCP: Care Physician,No Primary Status :ADM IN Location: [place] OO885-1 Subjective Subjective Ms. Givens is a 33-year-old [...] Cosigner Signature (if applicable): CC: ~ Signed [facility] Work Phone: 1(792) 594-764710-28-2023 Progress note Author Rickey Gifford [facility] May 08, 2023 10:48am Note Date/Time May 08, 2023 7 :51am [facility] Medical Records Department [address] [place] [address] Progress Note - Hospitalist 05/08/23 0749 MR#: [id number] Acct: [id number] Name: GHISLAINE GIVENS Rep #:[id number] : 1990 33 From: Rickey Gifford DO PCP: Care Physician,No Primary Status :ADM IN Location: [place] [address] Reason for Visit Reason for Visit: Diagnoses [...] with enoxaparin. Charges/Coding Visit Charges Inpatient E&M: 41700 Subs Hosp L2 05/08/23 1048 <Electronically signed by Rickey Gifford DO> Cosigner Signature (if applicable): CC: ~ Signed [facility] Work Phone: 1(801) 121-234010-28-2023 Progress note Author Abdirizak Forrest [facility] May 08, 2023 10:31am Note Date/Time May 08, 2023 9 :18am [facility] Medical Records Department [address] [place] [address] Progress Note - Surgery 05/08/23916 MR#: [id number] Acct: [id number] Name: GHISLAINE GIVENS Rep #:[id number] : 1990 33 From: bAdirizak COELLO PCP: Care Physician,No Primary Status :ADM IN Location: [facility] TR031-9 Subjective Subjective Mrs. Givens is a 33-year-old [...] Cosigner Signature (if applicable): CC: ~ Signed [facility] Work Phone: 1(937) 515-561510-27-2023 Procedure [facility] 05-07-2023 Progress note Author Rickey Gifford [facility] May 07, 2023 12:40pm Note Date/Time May 07, 2023 1 2:36pm [facility] Medical Records Department [address] [place] [address] Progress Note - Hospitalist 05/07/23 1229 MR#: [id number] Acct: [id number] Name: GHISLAINE GIVENS Rep #:[id number] : 1990 33 From: Rickey Gifford DO PCP: Care Physician,No Primary Status :ADM IN Location: [facility] LF071-6 Reason for Visit Reason for Visit: Diagnoses [...] her symptoms. Charges/Coding Visit Charges Inpatient E&M: 16616 Subs Hosp L2 05/07/23 1240 <Electronically signed by Rickey Gifford DO> Cosigner Signature (if applicable): CC: ~ Signed [facility] Work Phone: [phone]) 887-555210-26-2023 Consult note Author Rickey Gifford [facility] May 06, 2023 4:46pm Note Date/Time May 04, 2023 8 :30pm [facility] Medical Records Department [address] [place] [address] Pharmacokinetic/Renal -Consult 05/04/232026 MR#: [id number] Acct: [id number] Name: GHISLAINE GIVENS Rep #:[id number] : 1990 33 From: Otto enamorado PCP: Care Physician,No Primary Status :ADM IN Location: [address] Consult Antibiotic Management Pharmacy has been consulted [...] will continue with 1000mg IV q8h per [facility] dosing protocol. Will check a trough before the 4th total dose tomorrow. Pharmacy Service will continue to monitor and adjust dosing as required. Follow-Up Labs Follow-Up Labs: Trough: Vancomycin Date/Time Labs Ordered Labs to be done on [date and time ordered]: 05/05/23 12:30 05/04/232030 <Electronically signed by Otto Zapata erg> Date _ Otto Nolan 05/06/23 1646 <Electronically signed by Rickey Gifford DO> Cosigner Signature (if applicable): Date Rickey Gifford DO CC: ~ Signed [facility] Work Phone: 1(821) 394-484510-26-2023 Consult note Author Rickey Gifford [facility] May 06, 2023 4:46pm Note Date/Time May 05, 2023 2 :05pm [facility] Medical Records Department [address] [place] [address] Pharmacokinetic/Renal -Consult 05/05/23 1404 MR#: [id number] Acct: [id number] Name: GHISLAINE GIVENS Rep #:[id number] : 1990 33 From: Gage Trejo PCP: Care Physician,No Primary Status :ADM IN Y Location: [place] NC966-6 Consult Antibiotic Management Pharmacy has been consulted to manage selected antiobiotic: Vancomycin Type of Intervention Type of Consult: Follow-up Suspected Infection Suspected Infection: Skin/Soft tissue Prior Doses of Antibiotics Prior Doses of Antibiotics Received/Current Regimen: Vancomycin 1000 mg given 05/04 @ 2242, and 05/05 @ 0443 Labs Labs: Sodium 132 mmol/L (136-145) L [...] Date Rickey Gifford DO CC: ~ Signed [facility] Work Phone: 1(559) 453-684310-26-2023 Progress note Author Rickey Gifford [facility] May 06, 2023 2:03pm Note Date/Time May 06, 2023 8 :47am [facility] Medical Records Department [address] [place] [address] Progress Note - Hospitalist 05/06/23 0844 MR#: [id number] Acct: [id number] Name: GHISLAINE GIVENS Rep #:[id number] : 1990 33 From: Rickey Gifford DO PCP: Care Physician,No Primary Status :ADM IN Location: [place] [address]-1 Reason for Visit Reason for Visit: Diagnoses [...] (Auto) 40.5 L, Lymph % (Auto) 49.6H, Bibb % (Auto) 8.4, Eos % (Auto) 0.3, [...] 11:07 EDT Reading Location ID and State: [facility] / [place] , Service support , Physical Exam Const [...] with enoxaparin. Charges/Coding Visit Charges Inpatient E&M: 14247 Subs Hosp L1 05/06/23 1403 <Electronically signed by Rickey Gifford DO> Cosigner Signature (if applicable): CC: ~ Signed [facility] Work Phone: 1(365) 829-565010-26-2023 Progress note Author Abdirizak Forrest [facility] May 06, 2023 8:10am Note Date/Time May 06, 2023 8 :10am [facility] Medical Records Department [address] [place] [address] Progress Note - Surgery 05/06/23 0802 MR#: [id number] Acct: [id number] Name: GHISLAINE GIVENS Rep #:[id number] : 1990 33 From: Abdirizak Gupta PM PCP: Care Physician,No Primary Status :ADM IN Location: [place] UP468-7 Subjective Subjective Ms. Givens is a 33-year-old [...] (Auto) 40.5 L, Lymph % (Auto) 49.6H, Bibb % (Auto) 8.4, Eos % (Auto) 0.3, [...] MD at 11:07 EDT , Physical Exam Narrative Neurovascular status unchanged. [...] Cosigner Signature (if applicable): CC: ~ Signed [facility] Work Phone: 1(566) 723-738410-25-2023 Progress note Author Rickey Gifford [facility] May 05, 2023 1:09pm Note Date/Time May 05, 2023 7 :49am [facility] Medical Records Department [address] [place] [address] Progress Note - Hospitalist 05/05/23 0745 MR#: [id number] Acct: [id number] Name: GHISLAINE GIVENS Rep #:[id number] : 1990 33 From: Rickey Gifford DO PCP: Care Physician,No Primary Status :ADM IN Location: [place] [address]-1 Reason for Visit Reason for Visit: Diagnoses [...] 73.2 H, Lymph % (Auto) 14.9 L, Bibb % (Auto) 10.2 H, Eos % (Auto) [...] % (Auto) 56.9, Lymph % (Auto) 30.9, Bibb % (Auto) 11.1 H, Eos % (Auto) [...] MD at 11:59 EDT , Physical Exam Const alert and [...] with enoxaparin. Charges/Coding Visit Charges Inpatient E&M: 98892 Subs Hosp L2 05/05/23 1309 <Electronically signed by Rickey Gifford DO> Cosigner Signature (if applicable): CC: ~ Signed [facility] Work Phone: 1(344) 967-444510-25-2023 Progress note Author Abdirizak Forrest [facility] May 05, 2023 10:17am Note Date/Time May 05, 2023 8 :29am [facility] Medical Records Department [address] [place] [address] Progress Note - Surgery 05/05/2329 MR#: [id number] Acct: [id number] Name: GHISLAINE GIVENS Rep #:[id number] : 1990 33 From: Abdirizak COELLO PCP: Care Physician,No Primary Status :ADM IN Location: [place] US646-8 Subjective Subjective Ms. Givens is a 33-year-old [...] 73.2 H, Lymph % (Auto) 14.9 L, Bibb % (Auto) 10.2 H, Eos % (Auto) [...] % (Auto) 56.9, Lymph % (Auto) 30.9, Bibb % (Auto) 11.1 H, Eos % (Auto) [...] 05/05/23 1017 <Electronically signed by Abdirizak Forrest DPPrisca> Cosigner Signature (if applicable): CC: ~ Signed [facility] Work Phone: 1(490) 264-763210-24-2023 Consult note Author Abdirizak Forrest [facility] May 04, 2023 5:02pm Note Date/Time May 04, 2023 4 :48pm [facility] Medical Records Department [address] [place] [address] Consultation 05/04/23 1642 MR#: [id number] Acct: [id number] Name: ABDIGHISLAINE BARBOURREBA Rep #:[id number] : 1990 33 From: Abdirizak COELLO PCP: Care Physician,No Primary Status :[facility] Location: [facility] A-1 Assessment & Plan Assessment/Plan (1) [...] is a 33 F who presented to [facility] emergency department for concerns for worsening [...] No other pedal complaints at this time. [facility] Medical History Anxiety Asthma Constipation Depression Diabetes [...] mg rectal suppository (Dulcolax (bisacodyl)) 10 mg KS DAILY 3 days #12 ea 01/15/23 [Rx [...] 25 mg rectal suppository (Promethegan) 25 mg KS Q6H PRN PRN Nausea #6 supp 04/13/23 [...] 73.2 H, Lymph % (Auto) 14.9 L, Bibb % (Auto) 10.2 H, Eos % (Auto) [...] 11:59 EDT Reading Location ID and State: [facility] / [place] , Service support , 05/04/23 1702 <Electronically signed by Abdirizak Forrest DPM> Cosigner Signature (if applicable): CC: No Primary Care Physician~ Signed [facility] Work Phone: 1(214) 752-530610-24-2023 [facility] Discharge summary Author Javy Doss [facility] May 04, 2023 3:49pm Note Date/Time May 04, 2023 1 0:56am [facility] Medical Records Department [address] [place] [address] Emergency Department Summary 05/04/23 MR#: [id number] Acct: [id number] Name: GHISLAINE GIVENS Rep #:[id number] : 1990 33 From: Javy Doss DO PCP: Care Physician,No Primary Status :[facility] Location: [facility] A-1 HPI History of Present Illness [...] denies any fever. Patient is a diabetic. [facility] Medical History (Updated 05/04/23 @ 13:11 by [...] mg rectal suppository (Dulcolax (bisacodyl)) 10 mg KS DAILY 3 days #12 ea 01/15/23 [Rx [...] 25 mg rectal suppository (Promethegan) 25 mg KS Q6H PRN PRN Nausea #6 supp 04/13/23 [...] 73.2 H Lymph % (Auto) 14.9 L Bibb % (Auto) 10.2 H Eos % (Auto) [...] Diabetes, Leukocytosis Disposition Disposition: Acute Care Hospital [facility] Discharge Date/Time: 05/04/23 15:25 What to do if you have Problems For any increased pain, shortness of breath, bleeding, nausea or vomiting, chestpain, or any unexpected problems, contact your Primary Care Provider. Call Doctors Registry ([phone]) or report to the closest Emergency Room. Call 911 if necessary. 05/04/23 1549 <Electronically signed by Javy Doss DO> Cosigner Signature (if applicable): CC: No Primary Care Physician ~ Signed [facility] Work Phone: 1(222) 294-898510-24-2023 History and physical note Author Rickey Gifford [facility] May 04, 2023 1:14pm Note Date/Time May 04, 2023 1 :13pm [facility] Medical Records Department [address] [place] [address] H&P Exam - Hospitalist 05/04/23 1309 MR#: [id number] Acct: [id number] Name: GHISLAINE GIVENS Rep #:[id number] : 1990 33 From: Rickey Gifford DO [...] Patient received vancomycin in the emergency room. [facility] Medical History (Updated 05/04/23 @ 13:[address] Rickey Gifford DO) Anxiety Asthma Constipation Depression Diabetes mellitus [...] mg rectal suppository (Dulcolax (bisacodyl)) 10 mg KS DAILY 3 days #12 ea 01/15/23 [Rx [...] 25 mg rectal suppository (Promethegan) 25 mg KS Q6H PRN PRN Nausea #6 supp 04/13/23 [...] 73.2 H, Lymph % (Auto) 14.9 L, Bibb % (Auto) 10.2 H, Eos % (Auto) [...] with enoxaparin. Charges/Coding Visit Charges Inpatient E&M: 01403 Init Hosp L2 05/04/23 1314 <Electronically signed by Rickey Gifford DO> Cosigner Signature (if applicable): CC: Dr. Rickey Gifford DO; No Primary Care Physician~ Signed [facility] Work Phone: 1(106) 698-855710-24-2023 History and physical note Author Rickey Gifford [facility] May 04, 2023 1:14pm Note Date/Time May 04, 2023 1 :13pm [facility] Medical Records Department [address] [place] [address] H&P Exam - Hospitalist 05/04/23 1309 MR#: [id number] Acct: [id number] Name: GHISLAINE GIVENS Rep #:[id number] : 1990 33 From: Rickey Gifford DO [...] Patient received vancomycin in the emergency room. [facility] Medical History (Updated 05/04/23 @ 13:11 by [...] mg rectal suppository (Dulcolax (bisacodyl)) 10 mg KS DAILY 3 days #12 ea 01/15/23 [Rx [...] 25 mg rectal suppository (Promethegan) 25 mg KS Q6H PRN PRN Nausea #6 supp 04/13/23 [...] 73.2 H, Lymph % (Auto) 14.9 L, Bibb % (Auto) 10.2 H, Eos % (Auto) [...] 11:59 EDT Reading Location ID and State: [facility] / [place] , Service support , Assessment & Plan [...] with enoxaparin. Charges/Coding Visit Charges Inpatient E&M: 38786 Init Hosp L2 05/04/23 1314 <Electronically signed by Rickey Gifford DO> Cosigner Signature (if applicable): CC: Dr. Rickey Gifford DO; No Primary Care Physician~ Signed [facility] Work Phone: 1(680) 394-541510-05-2023 History of Present illness Narrative* Abdirizak Peña APRN.SUZANNE - 04/15/2023 11:13 AM EDT Patient triaged at [facility]. Here today with abd pain and sob, patients crying. Breathing easy but appears in pain. O2 100% on RA. Will refer to ER, declines squad, friend to drive to ER. documented in this encounterPromedica [facility]09-15-2023 History of Present illness Narrative* Claritza Sierra - 03/26/2023 2:21 PM EDT POPULATION HEALTH NAVIGATION OUTREACH Action/FYI [place] Support: Called pt to schedule an appt in Pain Management. Lvm for pt to call [phone] for scheduling. Patient Identified by Name and : NO Outreach Outcome/Action Unable to reach patient: Left message Did you use a PCP flex slot to schedule this appointment? No Reason for Outreach Care Gap or Scheduling/Wellness visits Payer: Payor: [place] MEDICA[place] / Plan: [place] / Product Type: Medicaid / Care Gap [...] 26, 2023 2:22 PM documented in this encounterPromedica Fostoria [facility]09-01-2023 History of Present illness Narrative* Pilar Magdaleno APRN.CNP - 03/12/2023 12:12 PM EDT Please let patient know Dr. Sun is not in network. I have placed an order for pain management through the [facility]. documented in this encounterPromedica Fostoria Community Hospital08-29-2023 Miscellaneous Notes* Telephone Encounter - Milagros Cloud RN - 03/09/2023 12:35 PM EDT Boyfriend calls and not listed on chart. Requested to speak to patient. Patient requesting pain management referral be faxed to Dr. Lr. Faxed per request to [phone]. Milagros Cloud RN documented in this encounterPromedica Fostoria [facility] Hospital08-24-2023 NoteHNO ID: [id number] Author: Saida Lopez MD Service: ? Author Type: Physician Type: Progress Notes Filed: 03/11/2023 7:18 AM Note Text: Documentation Query Based on your medical judgment of the clinical indicators outlined below, please clarify the condition: (Please type X next to your response and sign) Clinical indicators: 03.03.23 Gastroenterology note EXTRUSION DIE COORDINATOR: Plan: Nausea with vomiting Generalized abdominal pain [...] X Other, please specify___due to psychiatric problems [facility]08-24-2023 NoteHNO ID: [id number] Author: Saida Lopez MD Service: ? Author Type: Physician [...] Seen by psych and GI. Discussed with hospice social worker/director case. OK to discharge the patient. Rest of management as outpatient. I personally spent more than 30 minutes for discharge of this patient. Discussed with unit PA/EXTRUSION DIE COORDINATOR about care plans. Recommended to see her [...] tab(s) (COZAAR) 50 mg ORAL DAILY SIGNATURE: Saida Lopez MD DATE: March 04, 2023 TIME: 11:57 [facility]08-24-2023 NoteHNO ID: [id number] Author: Croasmun, Cary, RN Service: Care Management Author Type: Registered [...] No Caregiver needed Transportation Arrangements Transportation Arrangements: [email or web address] Agency and Phone #:: [facility] [phone] Date of Trip: 03/04/23 Time of Trip: 1730 Type of Service: Wheelchair Is Patient Medicaid Pending?: No Was transportation financial coverage discussed with family?: Patient Automation Driver Location: [facility] Destination: Home Financial Care Management Responsibility: None [...] ED to Hosp-Admission (Current) from 03/01/2023 in [facility] Observation Unit Medical Follow-Up Appointment Specialty Psychaitry Behavior Health/Jose L Mccarthy Provider Name [facility] Address [address] [place] [address], [place] [address] Additional Instructions Please call for appointment to establish physician for mental health SIGNATURE: Cary Pino RN PATIENT NAME: Ghislaine Givens DATE: March 04, 2023 TIME: 11:26 AM CONTACT #: [phone] NoteHNO ID: [id number] Author: Cary Pino RN Service: Care Management [...] 04, 2023 TIME: 11:25 AM PAGER/CONTACT #: [phone] [id number] Note HNO ID: [id number] Author: Saida Lopez MD Service: ? Author Type: Physician [...] Plan to discharge in AM. Discussed with hospice social worker/director case. Advance diet. Physical Examination: GENERAL: alert, no [...] mg 150 mg ORAL AT BEDTIME SIGNATURE: Saida Lopez MD DATE: March 03, 2023 TIME: 3:15 [facility]08-23-2023 NoteHNO ID: [id number] Author: Frida Scott APRN.EXTRUSION DIE COORDINATOR Service: Gastroenterology Author Type: Nurse Practitioner Type: Plan of Care Filed: 03/03/2023 11:30 AM Note Text: DEPARTMENT OF GASTROENTEROLOGY AND HEPATOLOGY [facility] INPATIENT VISIT DATE AND TIME 03/03/23 [...] mild gastritis and an esophageal ulcer at [facility]. Patient presented from outpatient GI clinic [...] and re-consult as needed. SIGNATURE: Frida Scott APRN.EXTRUSION DIE COORDINATOR PAGER/CONTACT #: For concerns during days 7a-5p, contact GRIZZLYMAN directly [phone] Please page [phone] for covering attending concernsLiberty Hospital08-22-2023 Telephone encounter Note* Telephone Encounter - Almita Kelly PA-C - 03/02/2023 2:30 PM EDT Hi, The patient needs outpatient GES for persistent nausea and vomiting once optimized. Orders placed. The patient is a Dr. Doran patient and should follow- up with him. Thanks! Almita Kelly PA-C Gastroenterology and Hepatology [facility]08-22-2023 Miscellaneous Notes* Telephone Encounter - Almita Kelly PA-C - 03/02/2023 2:30 PM EDT Hi, The patient needs outpatient GES for persistent nausea and vomiting once optimized. Orders placed. The patient is a Dr. Doran patient and should follow- up with him. Thanks! Almita Kelly PA-C Gastroenterology and Hepatology documented in this encounterPromedica Fostoria [facility] Hospital08-22-2023 History of Present illness Narrative* Claritza Sierra - 03/02/2023 1:27 PM EDT POPULATION HEALTH NAVIGATION OUTREACH Action/I [place] Support: Called pt to schedule an appt in Pain Management. No voicemail, unable to lvm Patient Identified by Name and : NO Outreach Outcome/Action Unable to reach patient: Phone number not valid / voicemail full Did you use a PCP flex slot to schedule this appointment? No Reason for Outreach Care Gap or Scheduling/Wellness visits Payer: Payor: [place] MEDICAID / Plan: [place] / Product Type: Medicaid / Care Gap [...] 02, 2023 1:27 PM documented in this encounterPromedica Fostoria [facility]08-22-2023 NoteHNO ID: [id number] Author: Ghislaine Mancilla RN Service: ? Author Type: Registered Nurse Type: Progress Notes Filed: 03/02/2023 5:47 PM Note Text: IV access lost. X2 RN attempted to get new access with no success. AMET and NOM notified and states will come and attempt soon. GRIZZLYMAN notified via secure chat. Patient also complains of pain for second time this shift and GRIZZLYMAN notified for second time as well. States tylenol did not work when given during morning medication rounds. Patient now walking halls as she states movement helps with pain at times. Informed GRIZZLYMAN of patient calus/wound to right foot as [...] and MOVIPREP will be moved to shift foreman to attempt at a later time. As patient states she cannot tolerate drinking. 1730 Patient ordered oral contrast dye with CT. radiology special procedure tech states patient refusing to drink oral contrast. GI made aware via secure chat but no changes to orders made at this time. Patient will be sent to room with contrast dye per radiology special procedure tech. If pt drinks contrast and can keep in her body CT asked to be called and patient will then have the scan.[facility] 03-02-2023 NoteHNO ID: [id number] Author: Cary Pino RN Service: Care Management [...] Relation: Grandparent Admission Status: Inpatient Insurance Provider: [employer] [place]ID [place] Discharge Planning requested by: Per Department Practice Potential Transition Plans Home Advance Directives Current Advance Directive: None Scoring Machine Operator Attempted to Assist with AD Completion: [...] General wellness, Be able to go home [place] Explained: [place] Given: No Reason Not Given: [...] during this admission, please contact Case Management. [phone]. [employer] transport will be needed once stable for discharge. HX Depression Bipolar disorder DM SIGNATURE: Cary Pino RN PATIENT NAME: Ghislaine Givens DATE: March 02, 2023 TIME: 8:46 AM CONTACT #: [phone] History of Present illness Narrative* Dewayne Doran MD - 03/01/2023 10:40 AM EDT NAME: Ghislaine Givens AGE: [age] year old Referred by: Pilar Magdaleno [address] [place] [phone] Referred for: an opinion regarding nausea and [...] Past Histories independently gathered by the clinical call center support consultant and the remaining scribed note accurately describes [...] PHYSICIAN Dewayne Doran MD documented in this encounterPromedica Fostoria [facility]08-15-2023 History of Present illness Narrative* Pilar Magdaleno APRN.EXTRUSION DIE COORDINATOR - 02/23/2023 10:11 AM EDT Chief Complaint Patient presents with: Hospital F/U [facility] Ghislaine Givens is a 33 year old [...] - CONSULT TO PAIN MGT Pilar Magdaleno APRN.EXTRUSION DIE COORDINATOR documented in this encounterPromedica Fostoria Community Hospital08-08-2023 Note. MICRO - Microbiology PROCEDURE: Blood [...] Locations *1: This test was performed at: [address], [facility]- , [facility] ([place])02-16-2023 Note. MICRO - Microbiology PROCEDURE: Blood Culture [...] Locations *1: This test was performed at: [facility], [address] [place] [address], [address]- , [facility] ([place])02-11-2023 Hospital Discharge instructions Patient Education 02/11/2023 17:15:56 [...] as coffee and soda. Take and apply owce-hxg-tdrctat and prescription medicines only as told by [...] 10/06/2017 Document Revised: 11/04/2018 Document Reviewed: 10/06/2017 [employer] Patient Education 2020 [employer]. 02/11/2023 17:15:45 Nausea, Adult, Ioks-gc-Sdjy Nausea, Adult Nausea is feeling sick to [...] fruit juice). ?Low-calorie sports drinks. Eat bland, rblv-rk-ukuavx foods in small amounts as you are able, such as: ?Bananas. ?Applesauce. ?Rice. ?Low-fat (lean) meats. ?Marenisco. ?Crackers. Avoid drinking fluids that have a lot of sugar or caffeine in them. This includes energy drinks, sports drinks, and soda. Avoid alcohol. Avoid spicy or fatty foods. General instructions Take cpks-khe-whhchrm and prescription medicines only as told by your doctor. Rest at home while you get better. Drink enough fluid to keep your pee (urine) pale yellow. Take slow and deep breaths when you feel sick to your stomach. Avoid food or things that have strong smells. Wash your hands often with soap and water. If you cannot use soap and water, use hand media consultant. Make sure that all people in your [...] drink what your doctor tells you. Take cssa-lbm-utoosnk and prescription medicines only as told by [...] 06/16/2012 Document Revised: 12/06/2018 Document Reviewed: 12/06/2018 [employer] Patient Education [employer]. Follow Up Care 02/10/2023 23:24:03 With:AMY SOLORZANO SPRING REPAIRER HELPER HAND-EXTRUSION DIE COORDINATOR Address: [address] [place] [phone] When:3-5 days Comments:Please call to schedule your post-hospital follow-up appointment. [facility] 08-03-2023 Note Date of Service 02/11/2023 Chief Complaint C/o generalized ABD pain, N/V, multiple recent falls. States she has not been checking her blood sugar either. States she is supposed to be using insulin for DM. History of Present Illness 33-year-old female with past medical history significant for HTN, type 2 diabetes mellitus, neuropathy, depression/anxiety, asthma, cannabis use. Patient presented to [facility] emergency department on 02/10/2023 with a 1 [...] and pelvis with contrast. 01/07/2023 and 01/09/2023 [facility] ED visit 01/10/2023 [facility] ED visit. CT abdomen and pelvis with contrast that showed left hydrosalpinx, mildly dilated CBD with adjacent more than expected khurram hepatis adenopathy which may be reactive. She was treated with IV fluids and antiemetics and discharged. 01/12/2023 and 01/13/2023 [facility] ED visit treated with IV fluids and antiemetics, haldol and discharged. 01/14/2023 [facility] emergency department visit. IV fluids and antiemetics given. Admitted for hypokalemia. CT abdomen and pelvis with bilateral small ovarian cysts. 01/17/[address] [facility] [address] abdomen and pelvis with contrast showed underfilling versus mucosal thickening at rectosigmoid colon. Otherwise unremarkable. 01/24 [facility] emergency department visit. Discharged with a prescription for Keflex and Reglan. No imaging done. 01/25 [facility] emergency department treated with IV fluids and antiemetics. 727: She was seen in urgent care and advised to go to the emergency department. [facility] ED visit treated with IV fluids and antiemetics and discharged. She was seen at [facility] on 02/08. She had CT of [...] images of this examination and agree [facility] findings and interpretation. XR Abdomen AP Result [...] by MARTI WEBB on 02/11/2023 07:14 PM [facility]08-03-2023 Note Discharge Instructions Thank you for allowing [facility] to assist you with your healthcare needs. The following is importantdischarge information regarding your hospital visit. Your Care Team [facility] Your Diagnosis Abdominal pain Hyponatremia [...] to schedule your post-hospital follow-up appointment. Where: [address] [place] [address]- [phone] The Following Activity and Diet Have Been [...] a day Duration: 7 Days Pickup at [facility] Unchanged promethazine (promethazine 25 mg rectal suppository) 1 suppository(ies) in the rectum Every 6 hours as needed for for nausea/vomiting Cannabis hyperemesis syndrome co-occurrent and due to cannabis abuse Pharmacy Information [facility]: [address] [place], [place] [phone] What How Much When Why Comments Stop [...] as coffee and soda. Take and apply nlnm-ndr-eswocyf and prescription medicines only as told by [...] 10/06/2017 Document Revised: 11/04/2018 Document Reviewed: 10/06/2017 [employer] Patient Education 2020 [employer] Nausea, Adult Nausea is feeling sick [...] juice). ? Low-calorie sports drinks. Eat bland, vjqb-er-qvocbt foods in small amounts as you are able, such as: ? Bananas. ? Applesauce. ? Rice. ? Low-fat (lean) meats. ? Marenisco. ? Crackers. Avoid drinking fluids that have a lot of sugar or caffeine in them. This includes energy drinks, sports drinks, and soda. Avoid alcohol. Avoid spicy or fatty foods. General instructions Take azwo-ima-kvqqnlz and prescription medicines only as told by your doctor. Rest at home while you get better. Drink enough fluid to keep your pee (urine) pale yellow. Take slow and deep breaths when you feel sick to your stomach. Avoid food or things that have strong smells. Wash your hands often with soap and water. If you cannot use soap and water, use hand media consultant. Make sure that all people in your [...] drink what your doctor tells you. Take cuxs-jel-yhqdawy and prescription medicines only as told by [...] 06/16/2012 Document Revised: 12/06/2018 Document Reviewed: 12/06/2018 [employer] Patient Education 2020 [employer] Additional Information VACCINATE! IT SAVES LIVES! Members of the community who have not yet received the COVID-19 vaccine and would like to receive it can visit one of [facility] vaccine clinics. There are many vaccine clinic locations within the [facility]. For locations and available times, please visit https://gettheshot.coronavirus.[place].gov/. It is important to note that some COVID mobile vaccine clinics are held outdoors and may be canceled in rainy or stormy conditions. To learn more about pediatric vaccinations (ages 5-11), we invite you to visit the [facility] webpage. https://www.akIkonopedias.org/pages/6794-Ygwna-Ckewddehrni-Oabtghyaij-Sqgvb-Pzo stions.htmlTo learn more about the COVID-19 vaccine, we invite you to visit the CDC website for a list of frequently asked questions.https://www.cdc.gov/coronavirus/2019-ncov/vaccines/faq.html [facility] Patient Portal Access Instructions: Stay connected with your healthcare team and access your personal medical information anytime with the [facility] Patient Portal. Please follow the directions below to create your MichaelCallision account: 1.Access the email account you provided upon registration to the hospital/physician office.2.Look for an invitation email from [facility].3.Open the email and access the invitation link: AcceptInvitation to [facility].4.Fill in the required joy to create your account. To access your account, visit [employer]Stalkthishart. Click the blue button labeled Access Patient Portal and then log in with the username and password that you created in the steps above. You will be able to view your test results, lab results, a summary of your visits, upcoming appointments and more. There is also a convenient messaging option where you can send secure messages to your p [email or web address]. In addition, you will have the ability to download any documents or summaries to your computer and/or send the information securely to a physician. Remember that your healthcare information is confidential, so carefully consider who you will allowto register on the [facility] Patient Portal for access to your information. You can also access the [facility] Patient Portal on the [facility] della. Simply click on Patient Portal and then log into your account. If you would like to receive a full copy of your medical records, please contact the [facility] Medical Records Department by calling [phone], Wednesday through Wednesday between 8 a.m. and [...] Call your local pharmacy or go to http://bit.[employer]/1R4Wr3p to find one close to you.3.Make use of household items: Use cat litter or old coffee grounds to dispose medications if other options arenot available. Mix your drugs with these household products, seal them in an airtight container andthrow it into the garbage. Call [facility]: [phone] to be sure your drugs can be [...] Education Materials Cannabinoid Hyperemesis Syndrome Nausea, Adult, Nnkw-rn-Bwhe Medication Leaflets My discharge plan and instructions have been reviewed and explained to me and I,GHISLAINE GIVENS understand my current condition and have read and understand these discharge instructions. I have received a written copy of the plan/instructions. If I have questions, I am aware that I should contact my doctor. Patient/Sieve Grader Tender Signature: Date/Time: Relationship to Patient: Witness Name/Signature: Date/Time: [facility]08-03-2023 Note ORIGINAL EXAMINATION: GASTRIC EMPTYING STUDY02/11/2023 2:37 [...] Date: 02/11/2023 3:41:00 PM [facility] Evaluation + Plan noteExtracted from: Title:History and Physical Author:MARTI WEBB SPRING REPAIRER HELPER HAND-EXTRUSION DIE COORDINATOR Date:02/11/23 1. Abdominal pain 2. Hyponatremia 3. [...] and may include grammatical and/or spelling errors. [facility] 08-03-2023 Note ORIGINAL EXAMINATION: TRANSVAGINAL PELVIC ULTRASOUND02/11/2023 [...] Sign Date: 02/11/2023 12:11:13 PM Ordering Provider: [facility]08-03-2023 Note ORIGINAL EXAMINATION: ONE SUPINE XRAY VIEW(S) [...] Sign Date: 02/11/2023 9:28:54 AM Ordering Provider: [facility]08-03-2023 Note ORIGINAL EXAMINATION: COMPLETE ABDOMINAL ULTRASOUND 02/11/2023 [...] Sign Date: 02/11/2023 1:29:01 PM Ordering Provider: [facility]07-27-2023 History of Present illness Narrative* Irais [...] that due to limited diagnostic capabilities in [facility], I recommend she go back to the ER since she is having pain and unable to keep down fluids. She understands. She does have a PCP, but would like a new one. I had our water pumping station engineer help with scheduling a PCP appointment for the future, but still advise she go to the ER today. documented in this encounterPromedica Fostoria [facility]07-16-2023 Hospital Discharge instructions* Discharge Instructions* Abdirizak [...] your results today. Thank you for choosing [facility] for your care. Sincerely, Abdirizak Ramirez MD documented in this [facility]07-16-2023 Emergency department Note* Abdirizak Ramirez MD - 01/24/2023 10:03 AM EDT [facility] ED EMERGENCY DEPARTMENT ENCOUNTER Pt Name: Ghislaine [...] Culture. Procedure Abnormality Status --------- ------ Complete Urinalysis[[id number]] Abnormal Final result Please view results for [...] 129/74 Pulse: 65 71 71 70 Resp: Temp: TempSrc: SpO2: 100% 95% 97% 98% [...] of DVT, no recent surgery/immobilization. [facility] syncope rule (see below), patient is low risk and well appearing here, plan to discharge the patient home with PMD follow up. [place] syncope rule: predisposition to vasovagal symptoms/consistent with [...] ST elevations or depressions on my interpretation. [NEAV] 1111 Comprehensive metabolic panel(!) Mild hyperglycemia with [...] 01:00:46 PM PATIENT REFERRED TO: Amy Solorzano [address] [facility] [phone] Schedule an appointment as soon as possible [...] Abdirizak Ramirez MD [facility] Emergency Medicine Physician [facility] Abdirizak Ramirez MD 01/24/23 1303 * Tamica Penaloza RN - 01/24/2023 10:03 AM EDT Patient to room 15 with c/o vomiting for 3 weeks. Patient reports being at [facility] and being told it was [facility], and there was nothing more they could do for her. Patient reports having Zofran at home that she doesn't take, because it has not relieved her symptoms. V/S obtained, call light within reach. documented in this encounterSSuburban [facility] & [facility] [id number] Emergency department Triage note* Tamica Penaloza RN - 01/24/2023 10:03 AM EDT Patient to room 15 with c/o vomiting for 3 weeks. Patient reports being at [facility] and being told it was [facility], and there was nothing more they could do for her. Patient reports having Zofran at home that she doesn't take, because it has not relieved her symptoms. V/S obtained, call light within reach. [id number] Physician Emergency department Note* Abdirizak Ramirez MD - 01/24/2023 10:03 AM EDT [facility] ED EMERGENCY DEPARTMENT ENCOUNTER Pt Name: Ghislaine [...] Phys[facility] (Per Emergency Physician): Interpretation per the [...] Culture. Procedure Abnormality Status --------- ------ Complete Urinalysis[[id number]] Abnormal Final result Please view results for [...] of DVT, no recent surgery/immobilization. Based on [facility] syncope rule (see below), patient is low risk and well appearing here, plan to discharge the patient home with PMD follow up. [place] syncope rule: predisposition to vasovagal symptoms/consistent with [...] 01:00:46 PM PATIENT REFERRED TO: Amy Solorzano [address] [facility] [phone] Schedule an appointment as soon as possible [...] Abdirizak Ramirez MD [facility] Emergency Medicine Physician [facility] Abdirizak Ramirez MD 01/24/23 1303 [id number] Discharge summary Author Lexus Villatoro [facility] January 15, 2023 2:12pm Note Date/Time January 15, 2023 2:11p m [facility] Medical Records Department [address] [place] [address] Instructions for Home/Discharge Instructions 01/15/23 1411 MR#: [id number] Acct: [id number] Name: GHISLAINE GIVENS Rep #:[id number] : 1990 32 From: Lexus Villtaoro MD PCP: [facility] St atus:ADM BOB Discharge Instructions Diet [...] Attending Provider: Lexus Villatoro [facility] Instructions Patient Instructions: Cannabinoid Hyperemesis Syndrome, ED [...] [Dulcolax (bisacodyl)] 10 mg suppository 10 mg KS DAILY 3 Days Qty: 12 0RF Rx [...] 7 0RF [facility] - Within 1 Week Disposition Disposition (needs filled in before D/C Order can be placed): Home, Self Care 01/15/23 1411<Electronically signed by Lexus Villatoro MD>Lexus Villatoro MD CC: [facility] ~ Signed ADDENDUM by Dr. Lexus Villatoro MD on 01/15/23 at 1412 You were noted to have a small ovarian cyst, this was seen previous on a scan ofyour abdomen as well. Please follow up with your PCP or ob/senior sales representative for further management and monitoring 01/15/231411<Electronically signed by Lexus Villatoro MD>Lexus Villatoro MD cc: [facility] ~* Signed [facility] Work Phone: 1(477) 568-197707-07-2023 Discharge summary Author Lexus Villatoro [facility] January 15, 2023 2:23pm Note Date/Time January 15, 2023 2:12p m [facility] Medical Records Department [address] [place] [address] Discharge Summary 01/15/231410 MR#: [id number] Acct: [id number] Name: GHISLAINE GIVENS Rep #:[id number] : 1990 32 From: Lexus Villatoro MD PCP: [facility] St atus:ADM BOB Location: [place] [address] Providers Date of Admission: 01/14/23 Date of Discharge: 01/15/23 Primary Care Physician: [facility] Reason For Visit: INTRACTABLE NAUSEA VOMITING, HYPOKALEMIA [...] complication status: with neurologic complications Diabetes mellitus terminal clerk insulin use: without terminal clerk use Diabetes mellitus type: type 2 Plan [...] mg rectal suppository (Dulcolax (bisacodyl)) 10 mg KS DAILY 3 days #12 ea 01/15/23 scopolamine base 1 mg over 3 days transdermal patch 1 patch transdermal Q3D PRN nausea and vomiting #4 ea 01/15/23 Hospital Course Summary of Care Provided Minutes Spent on Discharge: 31 Hospital Course: GHISLAINE GIVENS, is a 32-year-old female with history of type 2 diabetes mellitus, hypertension, depression who presents to [facility] 01/14/2023 with 1 week of nausea, [...] diet for this, strongly recommend lab work dick. D/c instructions as follows: -Would recommend lab [...] Please follow up with your PCP or ob/senior sales representative for further management and monitoring -Please call [...] % (Auto) 56.4, Lymph % (Auto) 34.2, Bibb% (Auto) 8.2, Eos % (Auto) 0.3, Baso [...] Attending Provider: Lexus Villatoro [facility] Instructions Patient Instructions: Cannabinoid Hyperemesis Syndrome, ED [...] Please follow up with your PCP or ob/senior sales representative for further management and monitoring -Please call [...] [Dulcolax (bisacodyl)] 10 mg suppository 10 mg KS DAILY 3 Days Qty: 12 0RF Rx [...] Qty: 7 0RF [facility] [Primary Care Provider] - Within 1 Week Disposition Disposition (needs filled in before D/C Order can be placed): Home, Self Care Charges/Coding Visit Charges Inpatient E&M: 00141 Disch Hosp >30min 01/15/23 1423 <Electronically signed by Lexus Villatoro MD> Cosigner Signature (if applicable): CC: Dr. Lexus Villatoro MD; [facility]~ Signed [facility] Work Phone: 1(628) 892-536607-06-2023 History and physical note Author Lexus Villatoro [facility] January 14, 2023 6:10pm Note Date/Time January 14, 2023 3:59p m [facility] Medical Records Department [address] [place] [address] H&P Exam - Hospitalist 01/14/23 1552 MR#: [id number] Acct: [id number] Name: GHISLAINE GIVENS Rep #:[id number] : 1990 32 From: Lexus Villatoro MD PCP: [facility] St atus:ADM BOB Location: [address] HPI - General General Date of Admission: 01/14/23 Date of Service: 01/14/23 Chief Complaint: Nausea HPI Narrative GHISLAINE GIVENS, is a 32-year-old female with history of type 2 diabetes mellitus, hypertension, depression who presents to [facility] 01/14/2023 with 1 week of nausea, [...] urinating regularly. Denies any other specific complaints [facility] Medical History Anxiety Asthma Constipation Depression Diabetes [...] % (Auto) 59.7, Lymph % (Auto) 31.2, Bibb% (Auto) 7.7, Eos % (Auto) 0.2, Baso [...] Clarity Clear, Urine pH 8.0, Ur Specific [place] 1.015, Urine Protein 15 H, Urine Glucose [...] documentation, 58minutes Charges/Coding Visit Charges Inpatient E&M: 12306 Init Hosp L2 01/14/23 1810 <Electronically signed by Lexus Villatoro MD> Cosigner Signature (if applicable): CC: Dr. Lexus Villatoro MD; [facility]~ Signed [facility] Work Phone: 1(133) 256-556907-06-2023 Discharge summary Author Willie Dhillon [facility] January 14, 2023 3:33pm Note Date/Time January 14, 2023 12:08 pm [facility] Medical Records Department [address] [place] [address] Emergency Department Summary 01/14/23 MR#: [id number] Acct: [id number] Name: GHISLAINE GIVENS Rep #:[id number] : 1990 32 From: Willie Dhillon MD PCP: [facility] St atus:REG ER Location: ED HPI History of Present Illness [...] had any for a day or so. [facility] Medical History Anxiety Asthma Constipation Depression Diabetes [...] % (Auto) 59.7 Lymph % (Auto) 31.2 Bibb % (Auto) 7.7 Eos % (Auto) 0.2 [...] Clarity Clear Urine pH 8.0 Ur Specific [place] 1.015 Urine Protein 15 H Urine Glucose [...] Signed: Bernard Sadler MD at 13:57 EDT Reading Location ID and State: [facility] / [place] , Service support , Discharge Plan Dx/Rx/DC Orders Clinical Impression: Failure of outpatient treatment, Elevated serum creatinine, Intractable nausea and vomiting, Acute hypokalemia Disposition Disposition: Acute Care Hospital [facility] What to do if you have Problems For any increased pain, shortness of breath, bleeding, nausea or vomiting, chestpain, or any unexpected problems, contact your Primary Care Provider. Call [facility] ([phone]) or report to the closest Emergency Room. Call 911 if necessary. 01/14/23 1533 <Electronically signed by Willie Dhillon MD> Cosigner Signature (if applicable): CC: [facility] ~ Signed [facility] Work Phone: 1(385) 619-155707-04-2023 Discharge summary Author Fabricio Guevara [facility] January 12, 2023 1:18pm Note Date/Time January 12, 2023 10:58 am [facility] Medical Records Department [address] [place] [address] Emergency Department Summary 01/12/23 MR#: [id number] Acct: [id number] Name: GHISLAINE GIVENS Rep #:[id number] : 1990 32 From: Fabricio Guevara MD PCP: [facility] St atus:REG ER Location: ED HPI [...] Prior similar symptoms: Yes Recent Illness/Hospitalization: No PFSH PFSH Medical History Anxiety Asthma [...] 30 minutes before bedtime Primary Care Provider: [facility] Sophy Santiago [facility] [Primary Care Provider] - 3-5 Days if not improving Activity Restrictions/Additional Instructions: Zofran as needed for nausea. Follow-up with your doctor as needed. Stop using marijuana. Disposition Disposition: Home, Self Care What to do if you have Problems For any increased pain, shortness of breath, bleeding, nausea or vomiting, chestpain, or any unexpected problems, contact your Primary Care Provider. Call [facility] ([phone]) or report to the closest Emergency Room. Call 911 if necessary. 01/12/23 1318 <Electronically signed by Fabricio Guevara MD> Cosigner Signature (if applicable): CC: [facility] ~ Signed [facility] Work Phone: 1(898) 831-855207-04-2023 Note. MICRO - Microbiology PROCEDURE: Urine Culture [...] Locations *1: This test was performed at: [facility], [address] [place] [address], [address]- , [facility] ([place])01-10-2023 Hospital Discharge instructions Patient Education 01/10/2023 17:43:53 [...] and water are not available, use alcohol-based media consultant to keep from spreading the infection to [...] Yellow color of the eyes or skin 5217-2070 The [employer]. [address] [place] [address]. All rights reserved. This information is not intended as a substitute for professional medical care. Always follow yourhealthcare professional's instructions. 01/10/2023 17:43:45 Marijuana Abuse Marijuana [...] National Alcohol and Substance Abuse Information Center (268)-265-6535 www.addictioncareTapFitions.com National [place] on Alcoholism and Drug Dependence 789-245-7158 www.ncadd.org Marijuana Anonymous 844-698-8418 www.marijuana-anonymous.org When to seek medical advice Call your healthcare provider right away if any of these occur: You feel extreme depression, fear, anxiety, or anger toward yourself or others. You feel out of control. You feel that you may try to harm yourself or another. You experience chest pain or shortness of breath. 9678-0694 [employer]. [address] [place] [address]. All rights reserved. This information is not intended as a substitute for professional medical care. Always follow yourhealthcare professional's instructions. Follow Up Care 01/10/2023 13:44:57 With:Call Physician Referral Address:Unknown When:2-4 days [facility] 07-02-2023 Note Discharge Instructions Thank you for allowing [facility] to assist you with your healthcare needs. [...] may report side effects to FDA at 1-339-IRL-7874. What other drugs will affect promethazine? Using promethazine with other drugs that make you drowsy can worsen this effect. Ask your doctor before using opioid medication, a sleeping pill, a muscle relaxer, or medicine for anxiety or seizures. Other drugs may affect promethazine, including prescription and szqr-ywc-qsycapb medicines, vitamins, and herbal products. Tell your [...] to ensure that the information provided by [employer]. ('[employer]') is accurate, up-to-date, and complete, but no guarantee is made to that effect. Drug information contained herein may be time sensitive. [employer] information has been compiled for use by healthcare practitioners and consumers in the [place] and therefore [employer] does not warrant that uses outside of the [place] are appropriate, unless specifically indicated otherwise. [employer] drug information does not endorse drugs, diagnose patients or recommend therapy. [employer] drug information isan informational resource designed to [...] effective or appropriate for any given patient. [employer] does not assume any responsibility for any aspect of healthcare administered with the aid of information [employer] provides. The information contained herein is not intended to cover all possible uses, directions, precautions, warnings, drug interactions, allergic reactions, or adverse effects. If you have questions about the drugs you are taking, check with your doctor, nurse or pharmacist. Copyright 8620-2138 [employer]. Version: 8.01. Revision Date: 08/06/2021. prochlorperazine (oral/injection) (pro klor PER lori maddox) What is the most important information I [...] What is prochlorperazine? Prochlorperazine is a phenothiazine (FGSC-vs-DZNI-a-zeen) antipsychotic medicine that is used to treat [...] may report side effects to FDA at 9-912-PZP-8490. What other drugs will affect prochlorperazine? Using [...] may affect prochlorperazine. This includes prescription and klwv-qdk-mejbypl medicines, vitamins, and herbal products. Not all [...] to ensure that the information provided by [employer]. ('[employer]') is accurate, up-to-date, and complete, but no guarantee is made to that effect. Drug information contained herein may be time sensitive. [employer] information has been compiled for use by healthcare practitioners and consumers in the [place] and therefore [employer] does not warrant that uses outside of the [place] are appropriate, unless specifically indicated otherwise. [employer] drug information does not endorse drugs, diagnose patients or recommend therapy. [employer] drug information isan informational resource designed to [...] effective or appropriate for any given patient. [employer] does not assume any responsibility for any aspect of healthcare administered with the aid of information [employer] provides. The information contained herein is not intended to cover all possible uses, directions, precautions, warnings, drug interactions, allergic reactions, or adverse effects. If you have questions about the drugs you are taking, check with your doctor, nurse or pharmacist. Copyright 8058-8275 [employer]. Version: 12.. Revision Date: 11/03/2019. Education Materials [...] and water are not available, use alcohol-based media consultant to keep from spreading the infection to [...] Yellow color of the eyes or skin 4044-5121 The [employer]. [address] [place] [address]. All rights reserved. This information is not [...] National Alcohol and Substance Abuse Information Center (365)-763-9112 www.addictioncareapartum.com National [place] on Alcoholism and Drug Dependence 633-340-6350 www.ncadd.org Marijuana Anonymous 927-069-0794 www.marijuana-anonymous.org When to seek medical advice Call your healthcare provider right away if any of these occur: You feel extreme depression, fear, anxiety, or anger toward yourself or others. You feel out of control. You feel that you may try to harm yourself or another. You experience chest pain or shortness of breath. 1647-5269 [employer]. [address] [place] [address]. All rights reserved. This information is not intended as a substitute for professional medical care. Always follow yourhealthcare professional's instructions. Additional Information VACCINATE! IT SAVES LIVES! Members of the community who have not yet received the COVID-19 vaccine and would like to receive it can visit one of [facility] vaccine clinics. There are many vaccine clinic locations within the [facility]. For locations and available times, please visit www.gettheshot.coronavirus.[place].gov/. It is important to note that some COVID mobile vaccine clinics are held outdoors and may be canceled in rainy or stormy conditions. To learn more about pediatric vaccinations (ages 5-11), we invite you to visit the [facility] webpage. https://www.[facility].org/pages/8199-Mkfqo-Boswollnzgl-Gwkwyuqqss-Hwtsb-Lbc stions.htmlTo learn more about the COVID-19 vaccine, we invite you to visit the CDC website for a list of frequently asked questions. https://www.cdc.gov/coronavirus/2019-ncov/vaccines/faq.html [facility] Patient Portal Access Instructions: Stay connected with your healthcare team and access your personal medical information anytime with the [facility] Patient Portal. If you would like a full copy of your medical records please contact the [facility] Medical Records Department Wednesday through Wednesday between 8a.m. and 4:30p.m. Please follow the directions below to access the portal: 1.Access the email account you provided upon registration to the [facility].2.Look for an invitation email from [facility].3.Open the email and access the invitation link: [facility] to [facility].Fill in the required joy to create your account. Sign into www.[employer] with your username and password that you [...] you will allow to register on the [facility] Patient Portal for access to your information. You can also access the [facility] Patient Portal on the [employer]. Simply click on Health Records under HealthData and then click on the [employer] logo. HOW TO SAFELY DISPOSE OF PRESCRIPTION [...] Call your local pharmacy or go to http://bit.ly/5F8Od4y to find one close to you.3.Make use of household items: Use cat litter or old coffee grounds to dispose medications if other options arenot available. Mix your drugs with these household products, seal them in an airtight container andthrow it into the garbage. Call [facility]: [phone] to be sure your drugs can be [...] been reviewed and explained to me and IABDI HEATHER understand my current condition and have read and understand these discharge instructions. I have received a written copy of the plan/instructions. If I have questions, I am aware that I should contact my doctor. Patient/Sieve Grader Tender Signature: Date/Time: Relationship to Patient: Witness Name/Signature: Date/Time: [facility] [id number] Note ORIGINAL EXAMINATION: CT OF THE ABDOMEN [...] Date: 01/10/2023 4:59:31 PM Ordering Provider: [facility]07-02-2023 Note ORIGINAL EXAMINATION: CT OF THE ABDOMEN [...] Sign Date: 01/10/2023 4:59:31 PM Ordering Provider[facility] Evaluation + Plan note Diagnostic Tests Pending * Urine Culture 01/10/23 [facility] 06-29-2023 Discharge summary Author Poli Barfield [facility] January 07, 2023 2:08pm Note Date/Time January 07, 2023 8:55 am [facility] Medical Records Department [address] [place] [address] Emergency Department Summary 01/07/23 MR#: [id number] Acct: [id number] Name: GHISLAINE GIVENS Rep #:[id number] : 1990 32 From: Poli Farah PCP: [facility] St atus:REG ER Location: ED HPI [...] clinician: N/A This note was generated with [employer] dictation software. It may contain incorrectwords, spelling, [...] % (Auto) 53.2 Lymph % (Auto) 38.5 Bibb % (Auto) 5.9 Eos % (Auto) 1.0 [...] Days Qty: 21 0RF [facility] [Primary Care Provider] - 3-5 Days Activity [...] your Primary Care Provider. Call [facility] ([phone]) or report to the closest Emergency Room. Call 911 if necessary. 01/07/23 1408 <Electronically signed by Poli Farah> Cosigner Signature (if applicable): CC: [facility] ~ Signed [facility] Work Phone: 1(565) 359-868905-09-2023 History of Present illness Narrative* Andres Galaviz APRN.EXTRUSION DIE COORDINATOR - 11/17/2022 8:45 AM EDT Images from [...] Resp 16 Wt 110.2 kg (243 lb) LMP 05/18/2021 SpO2 97% BMI 39.22 kg/m Hr [...] of care. This note was generated using [employer] software. It may contain errors in wording, punctuation, or spelling. Andres Galaviz APRN.SUZANNE documented in this encounterProm[facility]04-[facility]23 Miscellaneous Notes* Telephone Encounter - Romana [...] ER if symptoms worsen. documented in this encounterPromedica Fostoria [facility]03-30-2023 History of Present illness Narrative* Shamika Goins PA-C - 10/08/2022 9:08 AM EDT Images from the original note were not included. This note was created using eCareDiaryter. Subjective Ghislaine Givens is a 32 year [...] tolerated it fine. Recommend she call her banana carrier today to be seen. Likely MRSA with [...] Z86.14 Shamika Goins PA-C documented in this encounterPromedica Fostoria [facility]02-04-[address] Villatoro [facility] August 15, 2022 11:44am Note Date/Time August 15, 2022 1 1:38am [facility] Medical Records Department [address] [place] [address] Instructions for Home/Discharge Instructions 08/15/22 1132 MR#: [id number] Acct: [id number] Name: GHISLAINE GIVENS Rep #:[id number] : 1990 32 From: Lexus Villatoro MD [...] be sent to your preferred pharmacy, [facility] ?Please continue all other home medications -Please [...] subcutaneous twice daily Referrals / Follow Up: Sopyh Gibbons [Primary Care Provider] - Within 1 Week Disposition Disposition (needs filled in before D/C Order can be placed): Home, Self Care 08/15/22 1144<Electronically signed by Lexus Villatoro MD>Lexus Villatoro MD CC: Dr. Valencia Urbina MD; Dr. Sophy Gibbons ~ Signed [facility] Work Phone: 1(312) 469-573802-03-[address] Villatoro [facility] August 14, 2022 8:50am Note Date/Time August 14, 2022 8 :50am [facility] Medical Records Department [address] [place] [address] Progress Note - Hospitalist 08/14/22845 MR#: [id number] Acct: [id number] Name: GHISLAINE GIVENS Rep #:[id number] : 1990 32 From: Lexus Villatoro MD PCP: Dr. Sophy Gibbons Status:ADM IN Location: [place] [id number] Subjective Subjective Irritable this morning, reports her [...] / 2524.0 1375 / 1375 Output Total 20 / 20 Balance 3037.5 / 3037.5 2124.0 / 2524.0 [...] Neut % (Auto) 65.7, Lymph % (Auto)22.3, Bibb % (Auto) 8.6, Eos % (Auto) 0.6, [...] diabetes mellitus, hypertension, depression who presents to [facility] 08/12 with hyperglycemia andtachycardia. She was [...] documentation, 30Minutes Charges/Coding Visit Charges Inpatient E&M: 39349 Subs Hosp L2 08/14/22 0850 <Electronically signed by Lexus Villatoro MD> Cosigner Signature (if applicable): CC: ~ Signed [facility] Work Phone: 1(293) 747-995302-02-[address] Villatoro [facility] August 13, 2022 4:34pm Note Date/Time August 13, 2022 8 :40am [facility] Medical Records Department [address] [place] [address] Progress Note - Hospitalist 08/13/22 0832 MR#: [id number] Acct: [id number] Name: GHISLAINE GIVENS Rep #:[id number] : 1990 32 From: Lexus Villatoro MD PCP: Dr. Sophy Gibbons Status:ADM IN Location: [place] [address] Subjective Subjective Reports slight cough which she [...] % (Auto) 69.8, Lymph % (Auto) 20.1, Bibb % (Auto) 8.7, Eos % (Auto) 0.1, [...] (MDRD) Non-Af 61, BUN/Creatinine Ratio 7.2 L, [id number] H, Calcium 9.6, Magnesium 1.6, Total Bilirubin 0.50, AST 20, ALT 13, Alkaline Phosphatase 136 H, Troponin I High Sens 6, Total Protein 9.2 H, Albumin2.9 L, Globulin 6.3 H, Albumin/Globulin Ratio 0.5 L 08/12/22 16:22: Acetone Level NEGATIVE 08/12/22 16:22: Urine Color Yellow, Urine Clarity Clear, Urine pH 6.0, Ur Specific [place] 1.010, Urine Protein 100 H, Urine Glucose [...] 71.0 H, Lymph % (Auto) 17.3 L, Bibb % (Auto) 9.7, Eos % (Auto) 0.2, Baso % (Auto) 0.5, Absolute Neuts (auto) 10.6 H, Absolute Lymphs (auto) 2.59, Nucleated RBC % 0 08/13/22 05:17: Sodium 134 L, Potassium 4.1, Chloride 102, Carbon Dioxide 22.0, Anion Gap 10, BUN 7, Creatinine 0.86, Estim Creat Clear Calc 89.54, Est GFR (MDRD) Af Amer 99, Est GFR (MDRD) Non-Af 82, BUN/Creatinine Ratio 8.1 L, [id number] H, Calcium 8.6, Magnesium 2.2, Total Bilirubin [...] diabetes mellitus, hypertension, depression who presents to [facility] 08/12 with hyperglycemia andtachycardia. She was [...] documentation, 40Minutes Charges/Coding Visit Charges Inpatient E&M: 36603 Subs Hosp L2 08/13/22 1634 <Electronically signed by Lexus Villatoro MD> Cosigner Signature (if applicable): CC: ~ Signed [facility] Work Phone: 1(164) 288-895702-02-[address] Christiansen [facility] August 12, 2022 10:42pm Note Date/Time August 12, 2022 3 :41pm [facility] Medical Records Department [address] [place] [address] Emergency Department Summary 08/12/22 MR#: [id number] Acct: [id number] Name: GHISLAINE GIVENS Rep #:[id number] : 1990 32 From: Alex Christiansen DO PCP: Dr. Sophy Gibbons Status:ADM IN Location: [place] [address] HPI History of Present Illness Chief Complaint: Hyperglycemia Narrative Narrative: 32-year-old female presenting with hyperglycemia. She states that she was at [facility] and they were unable to check her [...] which is completely healing and doing well. [facility] Medical History (Updated 08/12/22 @ 21:20 by [...] % (Auto) 69.8 Lymph % (Auto) 20.1 Bibb % (Auto) 8.7 Eos % (Auto) 0.1 [...] Color Urine Clarity Urine pH Ur Specific Millwood Urine Protein Urine Glucose (UA) Urine Ketones [...] (Auto) Neut % (Auto) Lymph % (Auto) Bibb % (Auto) Eos % (Auto) Baso % [...] Clarity Clear Urine pH 6.0 Ur Specific Millwood 1.010 Urine Protein 100 H Urine Glucose [...] (Auto) Neut % (Auto) Lymph % (Auto) Bibb % (Auto) Eos % (Auto) Baso % [...] Color Urine Clarity Urine pH Ur Specific Millwood Urine Protein Urine Glucose (UA) Urine Ketones [...] Andres Ramos MD at 18:42 EST , Discharge Plan Disposition Disposition: Acute Care Hospital [facility] Discharge Date/Time: 08/12/22 22:03 What to do if you have Problems For any increased pain, shortness of breath, bleeding, nausea or vomiting, chestpain, or any unexpected problems, contact your Primary Care Provider. Call [facility] ([phone]) or report to the closest Emergency Room. Call 911 if necessary. 08/12/222241 <Electronically signed by Alex Christiansen DO> Cosigner Signature (if applicable): CC: Dr. Sophy Gibbons ~ Signed [facility] Work Phone: 1([phone]) 843-692702-01-2023 History and physical note Author Dr. Urbina [facility] August 12, 2022 9:20pm Note Date/Time August 12, 2022 8 :09pm [facility] Medical Records Department [address] [facility] [place] [address] H&P Exam - Hospitalist 08/12/222008 MR#: [id number] Acct: [id number] Name: GHISLAINE GIVENS Rep #:[id number] : 1990 32 From: Valencia Urbina MD PCP: Dr. Sophy Gibbons Status:ADM IN Location: [facility] [id number]- [id number] HPI - General General Date of Admission: 08/12/22 Date of Service: 08/12/22 Chief Complaint: Hyperglycemia, tachycardia HPI Narrative GHISLAINE GIVENS, is a 32 F who presents with the above. Patient has past medicalhistory of type II DM, recent discharge from the hospital on 06/29/22 for right diabetic foot infection status post right toe amputation. Patient was referred to the emergency room from [facility] for hyperglycemia and tachycardia. 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 [facility] Medical History (Updated 08/12/22 @ 21:20 by [...] % (Auto) 69.8, Lymph % (Auto) 20.1, Bibb % (Auto) 8.7, Eos % (Auto) 0.1, [...] (MDRD) Non-Af 61, BUN/Creatinine Ratio 7.2 L, [id number] H, Calcium 9.6, Magnesium 1.6, Total Bilirubin 0.50, AST 20, ALT 13, Alkaline Phosphatase 136 H, Troponin I High Sens 6, Total Protein 9.2 H, Albumin2.9 L, Globulin 6.3 H, Albumin/Globulin Ratio 0.5 L 08/12/22 16:22: Acetone Level NEGATIVE 08/12/22 16:22: Urine Color Yellow, Urine Clarity Clear, Urine pH 6.0, Ur Specific Millwood 1.010, Urine Protein 100 H, Urine Glucose [...] room physician. Charges/Coding Visit Charges Inpatient E&M: 93749 Init Hosp L2 08/12/222119 <Electronically signed by Valencia Urbina MD> Cosigner Signature (if applicable): CC: Dr. Valencia Urbina MD; Dr. Sophy Gibbons~ Signed [facility] Work Phone: 1(293) 326-730409-12-2022 History of Present illness Narrative* Luis Mayes, [...] 23, 2022 1:00 PM documented [facility] History of Present illness Narrative* Sid [...] CORONAVIRUS Sid Bravo MD documented in this encounterProm[facility]07-25-2022 History of Present illness Narrative* Alyssa Jaime, SPRING REPAIRER HELPER HAND.EXTRUSION DIE COORDINATOR - 02/02/2022 9:56 AM EDT Subjective The history is provided by the patient. No carbon electrodes supervisor was used. HPI Ghislaine Givens is a 32 year old female who presents today for CC of concerns that she was in ERyesterday and was not treated for a pneumonia seen on CAT scan. Patient over the past month has been seen in ED for vomiting and abdominal pain. She is seeing GI at [facility], was seen on Wednesday and call them this morning. She is scheduled for a scope. Multiple CT scans that are negative, however yesterday's revealed possible pneumonia, pneumonitis. She was concerned she was not treated. She denies fever, chills, back pain or cough. BP 120/72 Pulse 74 Temp 36.2 C (97.2 F) Resp 16 Wt 92.5 kg (204 lb) LMP 05/18/2021 NiF985% BMI 32.93 kg/m Social History Tobacco Use Smoking status: Current Every Day Smoker Packs/day: 0.50 Years: 3.00 Pack years: 1.50 Types: Cigarettes Smokeless tobacco: Never Used Substance Use Topics Alcohol use: Yes Comment: Seldom Drug use: No PAST MEDICAL HISTORY Diagnosis Date Bipolar 1 disorder (HCC) 2007 Depression Elevated BP 04/28/2013 Insomnia I have confirmed and edited as necessary, the [facility] Review of Systems Constitutional: Negative for [...] for primary care, unable to get in [place] until May. - CONSULT TO PULM/CRITICAL CARE [...] Level: 3 - Low documented in this encounterProm[facility]07-25-2022 Instructions* Patient Instructions* Alyssa Jaime APRN.CNP - 02/02/2022 9:52 AM EDT Will set up follow for primary care and pulmonology To ER for worsening symptoms, increased pain, fevers, vomiting, decreased urine output, blood in her urine blood in her stools or dark tarry stools. documented in this encounterProm[facility]11-04-2021 History of Present illness Narrative* Luis [...] 15, 2021 9:57 AM documented in this encounterProm[facility]10-18-2013 History of Past illness Narrative* Problem [...] of this encounter (statuses as of 02/02/2022) [facility] History of Past illness Narrative* Problem [...] of this encounter (statuses as of 03/23/2022) [facility] History of Past illness Narrative* Problem [...] of this encounter (statuses as of 10/08/2022) [facility] of Past illness Narrative* Problem [...] of this encounter (statuses as of 10/12/2022) [facility] of Past illness Narrative* Problem [...] of this encounter (statuses as of 11/17/2022) [facility] of Past illness Narrative* Problem [...] of this encounter (statuses as of 02/04/2023) [facility] of Past illness Narrative* Problem [...] of this encounter (statuses as of 02/24/2023) [facility] of Past illness Narrative* Problem [...] of this encounter (statuses as of 03/02/2023) [facility] of Past illness Narrative* Problem [...] of this encounter (statuses as of 03/02/2023) [facility] of Past illness Narrative* Problem [...] of this encounter (statuses as of 03/09/2023) [facility] of Past illness Narrative* Problem [...] of this encounter (statuses as of 03/10/2023) [facility] of Past illness Narrative* Problem [...] of this encounter (statuses as of 03/12/2023) [facility] of Past illness Narrative* Problem [...] of this encounter (statuses as of 03/26/2023) [facility] of Past illness Narrative* Problem [...] of this encounter (statuses as of 04/16/2023) [facility] of Past illness Narrative* Problem [...] of this encounter (statuses as of 07/02/2023) [facility] Hospital[facility] summary Author Rickey Gifford [facility] May 09, 2023 2:02pm Note Date/Time May 09, 2023 2 :02pm [facility] Medical Records Department [address] [place] [address] Discharge Summary 05/09/23 1354 MR#: [id number] Acct: [id number] Name: GHISLAINE GIVENS Rep #:[id number] : 1990 33 From: Rickey Gifford DO PCP: Care Physician,No Primary Status :ADM IN Location: [place] [address] Providers Date of Admission: 05/04/23 Primary Care Physician: No Primary Care Phys Consultations 05/04/23 19:30 Consult: Onc/Wound/infrastructure security architect Routine Comment: Reason For Visit: RIGHT FOOT [...] the pain. [facility] for [facility] through [facility]: * CT A/P on 03/03/23: Unremarkable. * [...] A/P 01/10/23: left hydrosalpinx. Mildly dilated CBD. Plan Chronic [...] mg rectal suppository (Dulcolax (bisacodyl)) 10 mg KS DAILY 3 days #12 ea 01/15/23 acetaminophen [...] to review data from outside hospitals including [facility] as well as [facility] and [place], [place]. Patient has had CAT scans, EGDs, [...] by some anxiety. Do recommend [facility] with [facility] provider. To be beneficial for [...] [Dulcolax (bisacodyl)] 10 mg suppository 10 mg KS DAILY 3 Days Qty: 12 0RF Rx [...] Primary [Primary Care Provider] - Amy Solorzano GRIZZLYMAN, GRIZZLYMAN-C [Non-Staff -Ordering Privileges] - Within 2 Weeks Disposition Disposition (needs filled in before D/C Order can be placed): Home, Self Care Charges/Coding Visit Charges Inpatient E&M: 25300 Disch Hosp >30min 05/09/23 1402 <Electronically signed by Rickey Gifford DO> Cosigner Signature (if applicable): CC: YESY Forrest; PATRICE Solorzano; Dr. Rickey Gifford DO; No Primary Care Physician~ Signed [facility] Work Phone: Discharge summary Author Gale Lr [facility] Note Date/Time November 28, 2024 12:31 pm [facility] Medical Records Department [address] [place] [address] Discharge Summary 11/28/24 1203 MR#: [id number] Acct: [id number] Name: GHISLAINE GIVENS Rep #:[id number] : 1990 34 From: Gale Lr DO PCP: BROOKLYN Warren, PATRICE Statu s:ADM IN Location: [place] [address]1 Providers Date of Admission: 11/25/24 Date of [...] who presented to the emergency department at [facility] on 11/25/2024 with a chief complaint [...] (Auto) 49.8, Lymph % (Auto) 43.0 H, Bibb % (Auto) 5.3, Eos % (Auto) 0.5, [...] as compared to prior study. Reading Location: [place] [address] D/C Instructions Discharge Diet: 1800 Calorie Control [...] tomorrow to set up appointment) Amy Solorzano, GRIZZLYMAN-C [Primary Care Provider] - In 1 Week Disposition Disposition (needs filled in before D/C Order can be placed): Home, Self Care Charges/Coding Visit Charges Inpatient E&M: 19328 Disch Hosp >30min 11/28/24 1231 <Electronically signed by Gale Lr DO> Cosigner Signature (if applicable): CC: BROOKLYN GRIZZLYMANKaykay Solorzano; Dr. Gale Lr DO~ Signed [facility] Work Phone: Evaluation noteNo assessment information available [facility] Work Phone: Evaluation note* Diagnosis Onset Date Resolution Status Abdominal pain acute [facility] Work Phone: Evaluation note* Diagnosis Abnormal lung scan- Primary Nonspecific abnormal results of pulmonary system function study Nausea and vomiting, unspecified vomiting type [facility] Diagnosis Acute cough- Primary Mild intermittent asthmatic bronchitis without complication documented in this encounter [facility]* Diagnosis Onset Date Resolution Status Abdominal pain acute Encounter for pre-employment health screening examination acute [facility] Work Phone: Evaluation note* Diagnosis Onset Date Resolution Status Abdominal pain acute Encounter for pre-employment health screening examination acute Cellulitis of foot, right ac [place] Diabetes acute Diabetic foot infection acut e Leukocytosis acute [facility] Work Phone: evaluation note* Diagnosis Onset Date Resolution Status Abdominal pain acute Encounter for pre-employment health screening examination acute Cellulitis and abscess of right lower extremity acute Cellulitis of foot, right ac [place] Diabetes acute Diabetes mellitus with diabetic polyneuropathy acute Diabetic foot infection acut e Leukocytosis acute Osteomyelitis acute Type 2 diabetes mellitus with foot ulcer acute 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 [facility] Work Phone: evaluation note* Diagnosis Onset Date Resolution Status Cellulitis and abscess of right lower extremity acute Cellulitis of foot, right ac [place] Diabetes acute Diabetes mellitus with diabetic polyneuropathy [...] acut e Lactic acidosis acute Osteomyelitis acute [facility] Work Phone: Evaluation note* Diagnosis Onset Date Resolution Status Cellulitis and abscess of right lower extremity acute Cellulitis of foot, right ac [place] Diabetes acute Diabetes mellitus with diabetic polyneuropathy acute Diabetic foot infection acut e Leukocytosis acute Osteomyelitis acute Type 2 diabetes mellitus with foot ulcer acute 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 Cellulitis and abscess of right lower extremity acute Cellulitis of foot, right ac [place] Diabetes mellitus with diabetic polyneuropathy acute Diabetic foot infection acut e Lactic acidosis acute Osteomyelitis acute Type 2 diabetes mellitus with foot ulcer acute [facility] Work Phone: Evaluation note* Diagnosis Onset Date Resolution Status Cellulitis and abscess of right lower extremity acute Cellulitis of foot, right ac [place] Diabetic foot infection acut e Osteomyelitis acute Lactic acidosis resolved Acute pyelonephritis acute [facility] Work Phone: Evaluation note* Diagnosis Toe infection- Primary Unspecified local infection of skin and subcutaneous tissue Facial infection Other specified infectious and parasitic diseases History of MRSA infection Personal history of Methicillin resistant Staphylococcus aureus documented in this encounter [facility] note* Diagnosis Facial infection- Primary Other specified infectious and parasitic diseases documented in this encounter [facility] note* Diagnosis Onset Date Resolution Status Acute hypokalemia acute Cannabis abuse acute Diabetes acute Elevated serum creatinine ac mohe[place] Failure of outpatient treatment acute Intractable nausea and vomiting acute [facility] Work Phone: Evaluation note* Diagnosis Onset Date Resolution Status Acute hypokalemia acute Cannabis abuse acute Diabetes acute Intractable nausea and vomiting acute [facility] Work Phone: Evaluation note* Diagnosis Nausea and vomiting, unspecified vomiting type- Primary Syncope and collapse documented in this encounter [facility] note* Diagnosis Generalized abdominal pain- Primary Abdominal pain, generalized documented in this encounter [facility] note* Diagnosis Chronic nausea- Primary Nausea alone Chronic abdominal pain Abdominal pain, unspecified site documented in this encounter [facility] note* Diagnosis Vomiting, unspecified vomiting type, unspecified whether nausea present- Primary Chronic nausea Nausea alone documented in this encounter [facility] note* Diagnosis Chronic abdominal pain- Primary Abdominal pain, unspecified site documented in this encounter [facility] note* Diagnosis SOB (shortness of breath)- Primary Shortness of breath Abdominal pain, unspecified abdominal location documented in this encounter [facility] note* Diagnosis Onset Date Resolution Status Acute hypokalemia acute Cannabis abuse acute Diabetes acute Intractable nausea and vomiting acute Diabetes acute Diabetic foot infection acut e Leukocytosis acute [facility] Work Phone: Evaluation note* Diagnosis Onset [...] right foot with fat layer exposed chronic [facility] Work Phone: Evaluation note* Diagnosis Onset Date Resolution Status Diabetic foot infection reso lved Gas gangrene resolved Leukocytosis resolved Non-pressure chronic ulcer o f other part of right foot with fat layer exposed resolved Tightness of right heel cord resolved [facility] Work Phone: Evaluation note* Diagnosis Pain of right eye- Primary Pain in or around eye [facility]* Diagnosis Onset Date Resolution Status [...] right foot with fat layer exposed resolved [facility] Work Phone: Evaluation note* Diagnosis Onset Date Resolution Status Acute painful diabetic polyneuropathy acute Other acute osteomyelitis, right ankle and foot acute Non-pressure chronic ulcer o f other part of right foot with fat layer exposed resolved [facility] Work Phone: Evaluation note* Diagnosis Nausea- Primary Nausea alone documented in this encounter [facility] note* Diagnosis Type II or unspecified type diabetes mellitus without mention of complication, uncontrolled- Primary Morbid obesity with BMI of 40.0-44.9, adult ([facility]) Morbid obesity Elevated BP Elevated blood pressure reading without diagnosis of hypertension Acute cough Mild intermittent asthmatic bronchitis without complication [facility]* Diagnosis Type II or unspecified type diabetes mellitus without mention of complication, uncontrolled- Primary Morbid obesity with BMI of 40.0-44.9, adult (HCC) Morbid obesity Elevated BP Elevated blood pressure reading without diagnosis of hypertension Cough documented in this encounter [facility] note* Diagnosis Type II or unspecified type diabetes mellitus without mention of complication, uncontrolled- Primary Morbid obesity with BMI of 40.0-44.9, adult (HCC) Morbid obesity Elevated BP Elevated blood pressure reading without diagnosis of hypertension Bronchopneumonia- Primary Bronchopneumonia, organism unspecified Mild intermittent asthma, uncomplicated Unspecified asthma [facility]* Diagnosis Type II or unspecified type diabetes mellitus without mention of complication, uncontrolled- Primary Morbid obesity with BMI of 40.0-44.9, adult (HCC) Morbid obesity Elevated BP Elevated blood pressure reading without diagnosis of hypertension Acute cough- Primary Acute cough [facility]* Diagnosis Type II or unspecified type diabetes mellitus without mention of complication, uncontrolled- Primary Morbid obesity with BMI of 40.0-44.9, adult (HCC) Morbid obesity Elevated BP Elevated blood pressure reading without diagnosis of hypertension Acute cough [facility]* Diagnosis Onset Date Resolution Status Admit Date Acute proctitis acute November 25, 2024 1:38pm Colitis acute November 25, 2024 1:38pm Fecal impaction acute November 25, 2024 1:38pm [facility] Work Phone: History and physical note Author Dr. Urbina [facility] August 12, 2022 9:20pm Note Date/Time August 12, 2022 8 :09pm [facility] Medical Records Department [address] [place] [address] H&P Exam - Hospitalist 08/12/222008 MR#: [id number] Acct: [id number] Name: GHISLAINE GIVENS Rep #:[id number] : 1990 32 From: Valencia Urbina MD PCP: Dr. Sophy Gibbons Status:ADM [facility] HPI - General General Date of Admission: 08/12/22 Date of Service: 08/12/22 Chief Complaint: Hyperglycemia, tachycardia HPI Narrative GHISLAINE GIVENS, is a 32 F who presents with the above. Patient has past medicalhistory of type II DM, recent discharge from the hospital on 06/29/22 for right diabetic foot infection status post right toe amputation. Patient was referred to the emergency room from [facility] for hyperglycemia and tachycardia. 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 [facility] Medical History (Updated 08/12/22 @ 21:20 by [...] % (Auto) 69.8, Lymph % (Auto) 20.1, Bibb % (Auto) 8.7, Eos % (Auto) 0.1, [...] (MDRD) Non-Af 61, BUN/Creatinine Ratio 7.2 L, [id number] H, Calcium 9.6, Magnesium 1.6, Total Bilirubin 0.50, AST 20, ALT 13, Alkaline Phosphatase 136 H, Troponin I High Sens 6, Total Protein 9.2 H, Albumin2.9 L, Globulin 6.3 H, Albumin/Globulin Ratio 0.5 L 08/12/22 16:22: Acetone Level NEGATIVE 08/12/22 16:22: Urine Color Yellow, Urine Clarity Clear, Urine pH 6.0, Ur Specific [place] 1.010, Urine Protein 100 H, Urine Glucose [...] 18:42 EST Reading Location ID and State: [address] [place] [address] , Service support , Assessment & Plan [...] room physician. Charges/Coding Visit Charges Inpatient E&M: 06617 Init Hosp L2 08/12/222119 <Electronically signed by Valencia Urbina MD> Cosigner Signature (if applicable): CC: Dr. Valencia Urbina MD; Dr. Sophy Gibbons~ Signed [facility] Work Phone: History and physical note Author David Bain [facility] Note Date/Time December 30, 2024 1:09 pm [facility] Medical Records Department [address] [place] [id number] H&P Exam - Hospitalist 12/30/24 1248 MR#: [id number] Acct: [id number] Name: GHISLAINE GIVENS Rep #:[id number] : 1990 34 From: David Gupta PCP: Amy Solorzano Sara, GRIZZLYMAN-C Statu s:ADM IN Location: ICU CVICU20 3-1 HPI - General General Date of Admission: 12/30/24 Date of Service: 12/30/24 Chief Complaint: Patient has been vomiting, nausea and diffuse abdominal pain intermittently going on for 1 month but persistent for last 2 days HPI Narrative GHISLAINE GIVENS, is a 34 F who was recently admitted in November 2024 for stercoral colitis and abdominal pain, nausea vomiting for about a month and was treated with antibiotics and then was seen in GI office on 12/13 came back with worsening of symptoms including nausea vomiting and diffuse abdominal pain for last 2 days. She states she had some bright red streaks of blood in vomiting but was mainly bilious. She has type 2 diabetes mellitus with peripheral neuropathy and right foot ulcerthat required transmetatarsal amputation. She she is on insulin and Trulicity but not taking Trulicity for last 2 to 3 weeks She describes her abdominal pain as generalized nonspecific. Denies acute lowerurinary tract symptoms. No fever. She is moving her bowel. In ED, labs were consistent with DKA therefore admitted. Vitals in normal limit. [facility] Medical History Diabetes GERD (gastroesophageal reflux disease) Wears glasses [...] 20 unit subcut BID doreen betes 08/12/22 12/29/24 History mL) subcutaneous pen (Lantus Solostar U-100 Insulin) albuterol sulfate 90 mcg/actuation 2 puff inhalation Q 4H PRN 11/25/24 Unknown History aerosol inhaler shortness of breath or wheez ing dulaglutide 4.5 mg/0.5 mL 4.5 mg subcut SA 11/25/24 History subcutaneous pen injector (Trulicity) linaclotide 145 mcg capsule 145 mcg PO QAM #30 caps 12/29/24 Rx (Linzess) Allergy/AdvReac Type Severity Reaction Status Date / Time No Known Allergies Allergy Verified 12/30/24 10:23 Family History Other Bleeding disorder Cancer Diabetes Hypertension Surgical History Hx of foot surgery Hx of foot surgery Social History Smoking Status: Former smoker alcohol intake: never substance use type: does not use what type of physical activity do you participate in: none ROS ROS Narrative Constitutional: Reports acute onset of fatigue and weakness. No fever. HEENT: Reports systems reviewed and no addt'l complaints, except as documented Respiratory/Chest: No acute shortness of breath or respiratory distress or wheezing. CVS: No chest pain/pressure. No history of cardiac disease Gastrointestinal: As described in HPI. History of cyclical vomiting. Genitourinary: Denies burning urination or new urinary tract symptoms Musculoskeletal: Denies acute joint pain or limited range of motion. No acute injury Neurologic: Denies seizure-like symptoms. Psychiatric: Anxiety and depression. History of substance use in the past including marijuana and ecstasy skin: No ulcer. No rash Endocrinology: Reports systems reviewed and no addt'l complaints, except as documented Hematologic/Lymphatic: Reports systems reviewed and no addt'l complaints, exceptas documented Rest 14 ROS are negative except as mentioned in HPI Vital Signs Vital Signs Vital Signs: 12/30/24 10:25 12/30/24 12:26 12/30/24 12:35 Temperature 97.4 F L 97.4 F L Temperature Source Oral Pulse Rate 97 94 94 Respiratory Rate 18 18 Blood Pressure 133/96 H 126/93 H 126/93 H Blood Pressure Mean 108 104 104 Pulse Ox 96 96 Oxygen Delivery Method Room Air Weight Weight: 233 lb 11.04 oz Body Mass Index (BMI) 37.7 Physical Exam Narrative General: Alert, Oriented x3, Cooperative HEENT: Atraumatic, PERRLA, EOMI, Normocephalic. Oral: Oral mucosa dry. No Gingival or Mucosal Lesions/ Ulcerations Neck: Supple, No JVD, Negative Carotid Bruits Chest wall/Lungs: Air entry equal in bilateral lung bases. No crepitation/rhonchi Cardiovascular: Regular rate and rhythm, Normal S1,S2, No M/G/R Abdomen: Bowel Sounds Present, Soft, mild diffuse tenderness. Non-Distended : No dysuria. No renal angle tenderness. No suprapubic tenderness. Extremities: No edema, Capillary Refill Less than 3 Seconds Skin: No rashes, No breakdown Musculoskeletal: No Tenderness to Palpation of Joints or Extremities. Status post right TMA Neurological: Cranial nerves II-XII grossly intact, DTR 2+/4. No acute focal neurological deficit. Psych/Mental Status: Flat affect, crying Results Lab / Micro Data 12/30/24 10:50 12/30/24 10:50 Labs: Laboratory Results - last 24 hr 12/30/24 10:50: WBC 13.3 H, RBC 4.79, Hgb 13.2, Hct 39.2, MCV 81.8, MCH 27.6, MCHC 33.7, RDW Std Deviation 41.4, RDW Coeff of John 14.3, Plt Count 430, MPV 9.7, Immature Gran % (Auto) 0.600, Neut % (Auto) 70.7 H, Lymph % (Auto) 23.6, Bibb % (Auto) 4.8, Eos % (Auto) 0.0, Baso % (Auto) 0.3, Absolute Neuts (auto) 9.4 H, Absolute Lymphs (auto) 3.14, Nucleated RBC % 0, Sodium 137, Potassium 3.4, Chloride 97 L, Carbon Dioxide 19.2 L, Anion Gap 20 H, BUN 14, Creatinine 1.22 H, Estim Creat Clear Calc 81.50, Est GFR (MDRD) Non-Af 60, BUN/Creatinine Ratio 11.1, Glucose 359 H, Calcium 9.7, Total Bilirubin 0.65, AST 16, ALT 12, Alkaline Phosphatase 91, Total Protein 8.6 H, Albumin 4.2, Globulin 4.4 H, Albumin/Globulin Ratio 0.9, Lipase 25, Serum , Qual NEGATIVE 12/30/24 11:32: Urine Color Yellow, Urine Clarity Sl. Cloudy, Urine pH 5.0, Ur Specific [place] 1.025, Urine Protein 30 H, Urine Glucose (UA) 1000 H, Urine Ketones 50 H, Urine Occult Blood 10 H, Urine Nitrite Negative, Urine Bilirubin 3H, Urine Urobilinogen 1 H, Ur Leukocyte Esterase 500 H, Urine RBC 0 SEEN, Urine WBC 5-10 SEEN, Ur Squamous Epith Cells 10-25 SEEN, Urine Bacteria 0 SEEN, Urine Mucus 0 SEEN Assessment & Plan Assessment/Plan (1) Diabetic ketoacidosis: QUALIFIERS: Diabetes mellitus type: type 2 Diabetes mellitus complication detail: without coma Qualified Code(s): E11.10 - Type 2 diabetes mellitus with ketoacidosis without coma (2) NAI (acute kidney injury): PLAN: Plan This is a 34-year-old female being admitted for nausea vomiting and generalized nonspecific abdominal pain consistent with DKA. 1. DKA with history of DM type II, complicated with peripheral neuropathy, diabetic ulcer in the past right foot status post TMA: Patient is being admittedin ICU. Labs shows bicarb 19, AG 20, K3.4. Serum magnesium and phosphorus and ABG ordered. No ABG. Glucose 359 in BMP. Patient had 2 L of IV fluid normal saline bolus in ED and then started on IV fluid and insulin drip as per DKA protocol. 2. Nausea/vomiting/generalized abdominal pain probably due to DKA: She has history of cyclical vomiting disorder and was admitted for stercoral colitis in December 03. Completed antibiotic. Mild leukocytosis but no fever probably due to DKA. History of constipation but moving her bowels. Continue stool softener 3. Chronic asthma, exact classification unclear probably intermittent asthma: Continue as needed albuterol. Not clinic asthma exacerbation 4. Anxiety, insomnia and depression and history of substance use disorder: Xanax 0.25 mg 3 times daily as needed ordered. Previous U tox was positive of marijuana and ecstasy. U tox is ordered. 5. Obesity grade 3: BMI is 37.7 with comorbidities as mentioned above. Patientnot taking Trulicity for 2 weeks. Weight loss counseling done. Stunner consult DVT prophylaxis, low risk: Early ambulation encouraged Living will/advanced directive/end of life care: Patient does not have living will or advanced directive. She does not have the [facility] power of assistant district attorney for health. After discussion of benefits/risks procedures involved with full code,DNR CC arrest and DNR CC, the patient opted for full code. Patient does want artificial life support including intubation, tube feed, ventilator and/chest compression, central venous catheter, vasopressor and DC shock if needed Total time spent in lepe-yk-oths encounter in discussion of advanced directive 17 minutes. Charges/Coding Visit Charges Inpatient E&M: 25601 Init Hosp L3 Procedures Hospitalists Procedures: 45463 Advncd Care Plan 30 Min 12/30/24 1309 <Electronically signed by Daivd Bain MD> Cosigner Signature (if applicable): CC: VSC GRIZZLYMAN-C Amy Solorzano; Dr. David Bain MD~ Signed [facility] Work Phone: Hospital course Narrative No data available for this section [facility] Discharge instructions Additional Instructions Avoid marijuana use. Use the capsaicin cream every 6 hours as needed. Medication prescribed to use as needed. Continue oral fluids at home for hydration. Follow-up with your doctor.[facility] Work Phone: Hospital Discharge instructions Additional Instructions Please decrease your marijuana use. Please maintain hydration, use antinausea medicine as needed.[facility] Work Phone: Hospital Discharge instructions Additional Instructions Please fill the prescriptions that were prescribed to you from [facility] to help control your nausea and vomiting. Based on their CAT scan showing potential gallbladder or fallopian tube issues please have the ultrasounds obtained that were ordered on an outpatient basis this evening. If you have any further concerns return to the ER for repeat evaluationWTri[facility] Work Phone: Hospital Discharge instructions Additional Instructions Your CT scan showed inflammation of the rectum consistent with acute proctitis. This can be secondary to infection or just inflammation but because of your diabetes and elevation of your white count take the antibiotic to resolve an infectious cause. If you have any further concerns please return for repeat evaluationWTriHealth [facility] Work Phone: Hospital Discharge instructions Additional Instructions I would recommend gentle massage of the tear duct. Warm compresses as discussed. I would highly encourage ophthalmologic follow-up. Monitor for worsening symptoms return if needed.[facility] Work Phone: Hospital Discharge instructions Additional [...] letting me be involved in your surgical care![facility] Work Phone: Reason for referral (narrative)* Diagnostic Procedure Only (Routine) - New Request Specialty Diagnoses / Procedures Referred By Ubaldo t Referred To Contact MOLECULAR & FUNCTIONAL IMAGING Diagnoses Nausea Procedures NM GASTRIC EMPTYING SOLID GASTRIC EMPTYING STUDY Almita Kelly PA-C [address] [place] [address] Molecular & Functional Imaging [address] [place] [address] Referral ID Status Reason Start Date Expiration Date Visits Requested Visits Authorized [id number] New Request Auto-Generat ed Referral 03/02/2023 03/31/2024 1 1 [facility] for referral (narrative)No reason for referral information availableWTriHealth [facility] Work Phone: Chief Complaint and Reason [...] INFECTION DIABETIC FOOT INFECTION DIABETIC FOOT INFECTION LONG-TERM LABWORK Reason for Visit Abdominal pain Encounter [...] INFECTION DIABETIC FOOT INFECTION DIABETIC FOOT INFECTION LONG-TERM LABWORK LONG-TERM LAB WORK Reason for Visit Abdominal pain [...] INFECTION DIABETIC FOOT INFECTION DIABETIC FOOT INFECTION LONG-TERM LABWORK LONG-TERM LAB WORK LONG-TERM LABWORK CMP/CBC Reason for Visit Abdominal pain [...] INFECTION DIABETIC FOOT INFECTION DIABETIC FOOT INFECTION LONG-TERM LABWORK LONG-TERM LAB WORK LONG-TERM LABWORK CMP/CBC DIABETIC FOOT ULCER Reason for [...] INFECTION DIABETIC FOOT INFECTION DIABETIC FOOT INFECTION LONG-TERM LABWORK LONG-TERM LAB WORK LONG-TERM LABWORK CMP/CBC DIABETIC FOOT ULCER Reason for [...] INFECTION DIABETIC FOOT INFECTION DIABETIC FOOT INFECTION LONG-TERM LABWORK LONG-TERM LAB WORK LONG-TERM LABWORK CMP/CBC DIABETIC FOOT ULCER DIAULCER DIAULCER [...] diabetes mellitus with foot ulcer Chief Complaint LONG-TERM LABWORK CMP/CBC DIABETIC FOOT ULCER DIAULCER DIAULCER DIAULCER DIAULCER DIAULCER ACUTE PYELONEPHRITIS ACUTE PYELONEPHRITIS Reason for Visit Cellulitis and absce ss of right lower extremity Cellulitis of foot, right Diabetic foot infection Osteomyelitis Lactic acidosis Acute pyelonephritis Chief Complaint LONG-TERM LABWORK CMP/CBC DIABETIC FOOT ULCER DIAULCER DIAULCER [...] ELEVATED LFT'S December 25, 2024 7:23 am Chief Complaint Admit Date PVD, BILAT LEG [...] ELEVATED LFT'S December 25, 2024 7:23 am DKA December 30, 2024 12:2 8pm Reason for Visit Admit Date Abdominal pain [...] m Constipation December 13, 2024 7:52a m NAI (acute kidney injury) December 30 12:28pm Diabetic ketoacidosis December 30, 2024 12 :28pm Chief Complaint Admit Date PVD, BILAT LEG [...] ELEVATED LFT'S December 25, 2024 7:23 am DKA December 30, 2024 12:2 8pm DKA December 30, 2024 12:4 8pm Advance Directives Advance Directive Response Recorded Date/ Time Living Will No October 24, 2021 8:30am Power of Sports Director No October 24 8:30am Advance Directive Response Recorded Date/ Time Living Will No October 29, 2021 9:39am Power of Sports Director No October 29 9:39am Advance Directive Response Recorded Date/ Time Living Will No November 16, 2021 8: 50am Power of Sports Director No November 16, 2021 8:50am Advance Directive Response Recorded Date/ Time Living Will No January 16, 2022 2 :46pm Power of Sports Director No January 16, 2022 2:46pm Advance Directive Response Recorded Date/ Time Living Will No January 22, 2022 9:41pm Power of Sports Director No January 22 9:41pm Advance Directive Response Recorded Date/ Time Living Will No January 23, 2022 4:29pm Power of Sports Director No January 23 4:29pm Advance Directive Response Recorded Date/ Time Living Will No January 26, 2022 12:34pm Power of Sports Director No January 26 12:34pm Advance Directive Response Recorded Date/ Time Living Will No February 01, 2022 1:07pm Power of Sports Director No February 01 1:07pm Advance Directive Response Recorded Date/ Time Living Will No April 05, 2022 11:53am Power of Sports Director No March 11:53am Advance Directive Response Recorded Date/ Time Living Will No April 06, 2022 12:58pm Power of Sports Director No March 12:58pm Advance Directive Response Recorded Date/ Time Living Will No April 06, 2022 4:07pm Power of Sports Director No March 4:07pm Advance Directive Response Recorded Date/ Time Living Will No June 24 3:40pm Power of Sports Director No June 24, 2022 3:40pm Advance Directive Response Recorded Date/ Time Living Will No August 12 5:35pm Power of Sports Director No August 12, 2022 5:35pm Advance Directive Response Recorded Date/ Time Living Will No August 12 10:55pm Power of Sports Director No August 12, 2022 10:55pm Advance Directive Response Recorded Date/ Time Living Will No January 07, 2023 8:51am Power of Sports Director No January 07 8:51am Advance Directive Response Recorded Date/ Time Living Will No January 09, 2023 1 2:00pm Power of Sports Director No January 09, 2023 12:00pm Advance Directive Response Recorded Date/ Time Living Will No January 12, 2023 1 2:39am Power of Sports Director No January 12, 2023 12:39am Advance Directive Response Recorded Date/ Time Living Will No January 12, 2023 1 2:53pm Power of Sports Director No January 12, 2023 12:53pm Advance Directive Response Recorded Date/ Time Living Will No January 14, 2023 4 :21pm Power of Sports Director No January 14, 2023 4:21pm Advance Directive Response Recorded Date/ Time Living Will No January 25, 2023 11:41am Power of Sports Director No January 25 11:41am Advance Directive Response Recorded Date/ Time Living Will No February 08, 2023 12:35pm Power of Sports Director No February 08 12:35pm Latest Code Status on File Code Status Date Activated Date Inactivated Comments Full Code 02/18/2023 1:58 AM 02/20/2023 4:13 PM Question Answer Comments Full Code Order Discussed With: Patient Advance Directive Response Recorded Date/ Time Living Will No February 26 12:10am Power of Sports Director No February 26, 2 023 12:10am Latest [...] Will No March 06 8:38am Power of Sports Director No March 06, 023 8:38am Latest Code Status on File [...] Will No May 04 12:14pm Power of Sports Director No May 04, 2023 12:14pm Advance Directive Response Recorded Date/ Time Living Will No May 04 6:42pm Power of Sports Director No May 04, 2023 6:42pm Advance Directive Response Recorded Date/ Time Living Will No May 04 5:42pm Power of Sports Director No May 04, 2023 5:42pm Advance Directive Response Recorded Date/ Time Living Will No June 28 023 9:27am Power of Sports Director No June 28, 2023 9:27am Advance Directive Response Recorded Date/ Time Living Will No July 02 9:33am Power of Sports Director No July 02, 2023 9:33am Advance Directive Response Recorded Date/ Time Living Will No July 16 9:15am Power of Sports Director No July 16 9:15am Advance Directive Response Recorded Date/ Time Living Will No July 16 10:15am Power of Sports Director No July 16 10:15am Date Activated Date Inactivated Comments 03/02/2023 [...] No June 25, 023 9:33am Power of Sports Director No June 25, 2023 9:33am Advance Directive Response Recorded Date/ Time Living Will No June 26 12:21pm Power of Sports Director No June 26, 2023 12:21pm Advance Directive Response Recorded Date/ Time Living Will No June 27 5:53am Power of Sports Director No June 27, 2023 5:53am Advance Directive Response Recorded Date/ Time Do you have a Healthcare Power of Sports Director? No November 25, 2024 8:56am Advance Directive Response Recorded Date/ Time Do you have a Healthcare Power of Sports Director? No November 25, 2024 2:54pm Advance Directive Response Recorded Date/ Time Do you have a Healthcare Power of Sports Director? No November 25, 2024 2:54pm Do you have a Healthcare Power of Sports Director? No December 30, 2024 10:23am Advance Directive Response Recorded Date/ Time Do you have a Healthcare Power of Sports Director? No November 25, 2024 2:54pm Do you have a Healthcare Power of Sports Director? No December 30, 2024 1:37pm Family History Relationship Condition Age at Onset Recorded Date/T [...] scan Procedures CONSULT TO PULM/CRITICAL CARE OFFICE/OUTPATIENT [facility] 60-74 MINUTES Alyssa Jaime APRN.[employer] [address] [place] [address] Referral ID Status Reason Start Date Expiration Date Visits Requested Visits Authorized [id number] Authorized PCP Requested Referral 02/02/2022 02/02/2023 1 1 Specialty Diagnoses / Procedures Referred By Contac t Referred To Contact Pain Management Diagnoses Chronic abdominal pain Procedures CONSULT TO PAIN MGT OFFICE/OUTPATIENT [facility] 60-74 MINUTES Pilar Magdaleno APRN.[employer]ORDIN[employer] [address] [id number] Referral ID Status Reason Start Date Expiration Date Visits Requested Visits Authorized [id number] Authorized PCP Requested Referral 02/23/2023 02/23/2024 1 1 Specialty Diagnoses / Procedures Referred By Contac t Referred To Contact Gastroenterology Diagnoses Chronic nausea Procedures CONSULT TO GASTROENTEROLOGY OFFICE/OUTPATIENT [facility] 60-74 MINUTES Pilar Magdaleno APRN.[employer] COORDIN[employer] [address] [place] [address] Referral ID Status Reason Start Date Expiration Date Visits Requested Visits Authorized [id number] Authorized PCP Requested Referral 02/23/2023 02/23/2024 1 1 Referral ID Status Reason Start Date Expiration Date Visits Requested Visits Authorized [id number] Authorized PCP Requested Referral 03/12/2023 03/11/2024 1 [...] or prosecute any alcohol or drug abuse patient.[facility] the event this information is protected by the Federal Confidentiality of Alcohol and Drug Abuse Patient Records regulations: The Federal rules restrict any use of the information to criminally investigate or prosecute any alcohol or drug abuse patient.[facility] the event this information is protected by the Federal Confidentiality of Alcohol and Drug Abuse Patient Records regulations: The Federal rules restrict any use of the information to criminally investigate or prosecute any alcohol or drug abuse patient.[facility] the event this information is protected by the Federal Confidentiality of Alcohol and Drug Abuse Patient Records regulations: The Federal rules restrict any use of the information to criminally investigate or prosecute any alcohol or drug abuse patient.[facility] the event this information is protected by the Federal Confidentiality of Alcohol and Drug Abuse Patient Records regulations: The Federal rules restrict any use of the information to criminally investigate or prosecute any alcohol or drug abuse patient.[facility] the event this information is protected by the Federal Confidentiality of Alcohol and Drug Abuse Patient Records regulations: The Federal rules restrict any use of the information to criminally investigate or prosecute any alcohol or drug abuse patient.[facility] the event this information is protected by the Federal Confidentiality of Alcohol and Drug Abuse Patient Records regulations: The Federal rules restrict any use of the information to criminally investigate or prosecute any alcohol or drug abuse patient.[facility] Hospital[facility] the event this information is protected by the Federal Confidentiality of Alcohol and Drug Abuse Patient Records regulations: The Federal rules restrict any use of the information to criminally investigate or prosecute any alcohol or drug abuse patient.[facility] Hospital[facility] the event this information is protected by the Federal Confidentiality of Alcohol and Drug Abuse Patient Records regulations: The Federal rules restrict any use of the information to criminally investigate or prosecute any alcohol or drug abuse patient.[facility] the event this information is protected by the Federal Confidentiality of Alcohol and Drug Abuse Patient Records regulations: The Federal rules restrict any use of the information to criminally investigate or prosecute any alcohol or drug abuse patient.[facility] Hospital[facility] the event this information is protected by the Federal Confidentiality of Alcohol and Drug Abuse Patient Records regulations: The Federal rules restrict any use of the information to criminally investigate or prosecute any alcohol or drug abuse patient.[facility] Hospital[facility] the event this information is protected by the Federal Confidentiality of Alcohol and Drug Abuse Patient Records regulations: The Federal rules restrict any use of the information to criminally investigate or prosecute any alcohol or drug abuse patient.[facility] Hospital[facility] the event this information is protected by the Federal Confidentiality of Alcohol and Drug Abuse Patient Records regulations: The Federal rules restrict any use of the information to criminally investigate or prosecute any alcohol or drug abuse patient.[facility] Hospital[facility] the event this information is protected by the Federal Confidentiality of Alcohol and Drug Abuse Patient Records regulations: The Federal rules restrict any use of the information to criminally investigate or prosecute any alcohol or drug abuse patient.[facility] HospitalIn the event this information is protected by the Federal Confidentiality of Alcohol and Drug Abuse Patient Records regulations: The Federal rules restrict any use of the information to criminally investigate or prosecute any alcohol or drug abuse patient.[facility] the event this information is protected by the Federal Confidentiality of Alcohol and Drug Abuse Patient Records regulations: The Federal rules restrict any use of the information to criminally investigate or prosecute any alcohol or drug abuse patient.[facility] the event this information is protected by the Federal Confidentiality of Alcohol and Drug Abuse Patient Records regulations: The Federal rules restrict any use of the information to criminally investigate or prosecute any alcohol or drug abuse patient.[facility] the event this information is protected by the Federal Confidentiality of Alcohol and Drug Abuse Patient Records regulations: The Federal rules restrict any use of the information to criminally investigate or prosecute any alcohol or drug abuse patient.[facility] the event this information is protected by the Federal Confidentiality of Alcohol and Drug Abuse Patient Records regulations: The Federal rules restrict any use of the information to criminally investigate or prosecute any alcohol or drug abuse patient.[facility] the event this information is protected by the Federal Confidentiality of Alcohol and Drug Abuse Patient Records regulations: The Federal rules restrict any use of the information to criminally investigate or prosecute any alcohol or drug abuse patient.[facility] HospitalIn the event this information is protected by the Federal Confidentiality of Alcohol and Drug Abuse Patient Records regulations: The Federal rules restrict any use of the information to criminally investigate or prosecute any alcohol or drug abuse patient.[facility] Reason for Visit (unrecogniz ed section [...] Chronic nausea Procedures CONSULT TO GASTROENTEROLOGY OFFICE/OUTPATIENT [facility] 60-74 MINUTES Pilar Magdaleno APRN.[employer] [address] [place] [address] Referral ID Status Reason Start Date Expiration Date V isits Requested Visits Authorized [id number] Closed PCP Requested Referral 02/23/2023 02/23/2024 1 [...] Active Dr. Andres Matias DPM Attending Provider, [facility] Active Team Status: Inactive Member [...] Dr. Lexus Villatoro MD Attending Provider Active [employer] Relationship Specialty Start Date End Date Amy Solorzano, MARIA G [address] [place] [address] PCP - General Family Medicine 11/17/22 Team Status: Active Member Role Status Dates Dr. Esther Cooney MD Family Provider Active [facility] Primary Care Provider A ctive Team Status: Inactive Member Role Status Dates Dr. Sophy Gibbons Primary Care Provider Active Dr. Tim Vidal DO Attending Provider, Emergency P tala Active Team Status: Active Member Role Status Dates [facility] Primary Care Provider A ctive Amy Solorzano GRIZZLYMAN, GRIZZLYMAN-C Attending Provider, [facility] Active Team Status: Inactive Member Role Status Dates [facility] Primary Care Provider A ctive Dr. Poli Barfield DO Emergency Provider Active Team Status: Inactive Member Role Status Dates [facility] Primary Care Provider A ctive Dr. Deann Guerrero MD Emergency Provider Active Team Status: Inactive Member Role Status Dates [facility] Primary Care Provider A ctive Dr. Perico Norman DO Emergency Provider Active Team Status: Inactive Member Role Status Dates [facility] Primary Care Provider A ctive Dr. Fabricio Guevara MD Emergency Provider Active Team Status: Active Member Role Status Dates [facility] Primary Care Provider A ctive Dr. Willie Dhillon MD Emergency Provider Active Dr. Lexus Villatoro MD Admit Provider, At tending Provider, Other Provider Active Team Status: Inactive Member Role Status Dates [facility] Primary Care Provider A ctive Dr. Willie Dhillon MD Emergency Provider Active Dr. Lexus Villatoro MD Admit Provider, Attending Provid er Active Team Status: Inactive Member Role Status Dates [facility] Primary Care Provider A ctive Dr. Poli Barfield DO Attending Provider, Emergency Provide r Active Team Status: Inactive Member Role Status Dates [facility] Primary Care Provider A ctive Dr. Deann Guerrero MD Attending Provider, Emergency Provider Active Team Status: Inactive Member Role Status Dates [facility] Primary Care Provider A ctive Amy Solorzano GRIZZLYMAN, GRIZZLYMAN-C Attending Provider, Referrin g Provider Active Team Status: Inactive Member Role Status Dates [facility] Primary Care Provider A ctive Dr. Perico Norman DO Attending Provider, Emergency Pr ovider Active Team Status: Inactive Member Role Status Dates [facility] Primary Care Provider A ctive Dr. Fabricio Guevara MD Attending Provider, Emergency Pro vider Active [employer] Relationship Specialty Start Date End Date Amy Solorzano [address] [place] [id number] PCP - General 01/24/23 [employer] Relationship Specialty Start Date End Date Amy Solorzano, GRIZZLYMAN [address] [place] [address] PCP - General Family Medicine 11/17/22 Team Status: Inactive Member Role Status Dates [facility] Primary Care Provider A ctive Dr. Javy Doss DO Emergency Provider Active [employer] Relationship Specialty Start Date End Date Amy Solorzano, GRIZZLYMAN [address] [place] [address] PCP - General Family Medicine 11/17/22 Team Status: Inactive Member Role Status Dates [facility] Primary Care Provider A ctive Dr. Javy Doss , DO Attending Provider, Emergency Pro vider Active Team Status: Inactive Member Role Status Dates [facility] Primary Care Provider A ctive Dr. Tim Vidal , DO Emergency Provider Active [employer] Relationship Specialty Start Date End Date Amy Solorzano, GRIZZLYMAN [address] [place] [address] PCP - General Family Medicine 11/17/22 [employer] Relationship Specialty Start Date End Date Amy Solorzano NP [address] [place] [address] PCP - General Family Medicine 11/17/22 Team Status: Inactive Member Role Status Dates [facility] Primary Care Provider A ctive Dr. Tim Vidal , DO Attending Provider, Emergency P rovider Active Team Status: Inactive Member Role Status Dates [facility] Primary Care Provider A ctive Dr. Rickey Shepard , DO Emergency Provider Active [employer] Relationship Specialty Start Date End Date Amy Solorzano GRIZZLYMAN [address] [place] [address] PCP - General Family Medicine 11/17/22 [employer] Relationship Specialty Start Date End Date Amy Solorzano NP [address] [place] [address] PCP - General Family Medicine 11/17/22 [employer] Relationship Specialty Start Date End Date Amy Solorzano NP [address] [place] [address] PCP - General Family Medicine 11/17/22 [employer] Relationship Specialty Start Date End Date Amy Solorzano NP [address] [place] [address] PCP - General Family Medicine 11/17/22 Team [...] Team Status: Inactive Member Role Status Dates [facility] Primary Care Provider A ctive Dr. Rickey Shepard DO Attending Provider, Emergency P ropatricia Active [...] Dr. Alex Christiansen DO Emergency Provider Active [employer] Relationship Specialty Start Date End Date Rashad AmyMARIA G [address] [place] [address] PCP - General Family Medicine 11/17/22 Team Status: Inactive Member Role Status Dates Dr. Sophy Gibbons Primary Care Provider Active Dr. Tesfaye Mitchell DO Attending Provider, Emergency P rovider Active Team Status: Inactive Member Role Status Dates Dr. Tesfaye Mitchell DO Attending Provider, Emergency P rovider Active Dr. Sophy Gibbons Primary Care Provider Active Team Status: Inactive Member Role Status Dates Dr. Sopyh Gibbons Primary Care Provider Active Dr. Alex Christiansen DO Attending Provider, Emergency Provider Active Team Status: Inactive Member Role Status Dates Dr. Tesfaye Mitchell DO Emergency Provider Active [facility] Primary Care Provider A ctive Team Status: Inactive Member Role Status Dates Dr. Abdirizak Forrest DPM Attending Provider, Referring Provider Active [facility] Primary Care Provider A ctive Team Status: Inactive Member Role Status Dates Dr. Sophy Gibbons Primary Care Provider Active Drew Hinson MD Attending Provider, Emergency Provid er Active Team Status: Inactive Member Role Status Dates Dr. Tesfaye Mitchell DO Attending Provider, Emergency P rovider Active [facility] Primary Care Provider A ctive Team Status: Inactive Member Role Status Dates [facility] Primary Care Provider A ctive Dr. Willie Dhillon MD Attending Provider, Emergency Provider Active Team Status: Inactive Member Role Status Dates [facility] Primary Care Provider A ctive Dr. Abdirizak Forrest DPM Attending Provider, Referring Provider Active [employer] Relationship Specialty Start Date End Date Amy Solorzano GRIZZLYMAN [address] [place] [address] PCP - General Family Medicine 11/17/22 [employer] Relationship Specialty Start Date End Date Amy Solorzano GRIZZLYMAN [address] [facility] [place] [address] PCP - General Family Medicine 11/17/22 [employer] Relationship Specialty Start Date End Date Amy Solorzano GRIZZLYMAN [address] [facility] [place] [address] PCP - General Family Medicine 11/17/22 [employer] Relationship Specialty Start Date End Date Amy Solorzano GRIZZLYMAN [address] [place] [address] PCP - General Family Medicine 11/17/22 Team Status: Active Member Role Status Dates Amykeiko Solorzano VSC, GRIZZLYMAN-C Primary Care Provider Activ e Team Status: Inactive Member Role Status Dates Amy Rashad VSC, GRIZZLYMAN-C Primary Care Provider Activ e Start: October 17, 2024 End: October 17, 2024 Amy EDWARDSC, GRIZZLYMAN-C Attending Provider Active Start: October 17, 2024 End: October 17, 2024 Team Status: Inactive Member Role Status Dates Amy Solorzano VSC, GRIZZLYMAN-C Primary Care Provider Activ e Start: October 25, 2024 End: October 25, 2024 Dr. Abdirizak Forrest DPM Attending Provider Active Start: October 25, 2024 End: October 25, 2024 Dr. Abdirizak Forrest DPM Referring Provider Active Start: October 25, 2024 End: October 25, 2024 Team Status: Active Member Role Status Dates Amy Solorzano VSC, GRIZZLYMAN-C Primary Care Provider Activ e Start: November 25, 2024 Drew Hinson MD Emergency Provider Active Star t: November 25, 2024 Dr. Brenda Rao MD Admit Provider Active St art: November 25, 2024 Dr. Brenda Rao MD Attending Provider Active Start: November 25, 2024 Team Status: Inactive Member Role Status Dates Amy BARAHONA, GRIZZLYMAN-C Primary Care Provider Activ e Start: November [...] Active Member Role Status Dates Amy BARAHONA, GRIZZLYMAN-C Primary Care Provider Activ e Start: November [...] Active Member Role Status Dates Amy BARAHONA, GRIZZLYMAN-C Primary Care Provider Activ e Start: November [...] Active Member Role Status Dates Amy BARAHONA, GRIZZLYMAN-C Primary Care Provider Activ e Start: November [...] Team Status: Active Member Role Status Dates Amykeiko BARAHONA, GRIZZLYMAN-C Primary Care Provider Activ e Start: November [...] Active Member Role Status Dates Amy BARAHONA, GRIZZLYMAN-C Primary Care Provider Activ e Start: November [...] Active Member Role Status Dates Amy BARAHONA, GRIZZLYMAN-C Primary Care Provider Activ e Start: November 28, 2024 Drew Hinson MD Emergency Provider Active Star t: November 28, 2024 Dr. Brenda Rao MD Admit Provider Active St art: November 28, 2024 Dr. Brenda Rao MD Other Provider Active St art: November 28, 2024 Dr. Annalise Welch MD Other Provider Active S tart: November 28, 2024 Dr. Gale Lr DO Other Provider Active Start : November 28, 2024 Clare GRADY PA-Sara Attending Provider Active Start: November 28, 2024 Team Status: Active Member Role Status Dates Amy BARAHONA, GRIZZLYMAN-C Primary Care Provider Activ e Start: November [...] November 28, 2024 Dr. Gale Lr DO Other Provider Active Start : November 28, 2024 Team Status: Active Member Role Status Dates Dr. Tony Dwyer MD Attending Provider Active Start: October 25, 2024 Dr. Abdirizak Forrest DPM Referring Provider Active Start: October 25, 2024 Team Status: Active Member Role Status Dates Amy BARAHONA, GRIZZLYMAN-C Primary Care Provider Activ e Start: November [...] tart: November 25, 2024 Dr. Gale Lr DO Referring Provider Active S tart: November 25, 2024 Team Status: Inactive Member Role Status Dates Amy BARAHONA, GRIZZLYMAN-C Primary Care Provider Activ e Start: December 13, 2024 End: December 13, 2024 Amy BARAHONA, GRIZZLYMAN-C Referring Provider Active Start: December 13, 2024 End: December 13, 2024 [facility] Attending Provider Active Start: December 13, 2024 End: December 13, 2024 Team Status: Inactive Member Role Status Dates Amy EDWARDSC, GRIZZLYMAN-C Primary Care Provider Activ e Start: December 13, 2024 End: December 13, 2024 [facility] Attending Provider Active Start: December 13, 2024 End: December 13, 2024 [facility] Referring Provider Active Start: December 13, 2024 End: December 13, 2024 Team Status: Inactive Member Role Status Dates Amy EDWARDSC, GRIZZLYMAN-C Primary Care Provider Activ e Start: December 25, 2024 End: December 25, 2024 [facility] Attending Provider Active Start: December 25, 2024 End: December 25, 2024 Kalee Peter Referring Provider Active Start: December 25, 2024 End: December 25, 2024 Team Status: Active Member Role Status Dates Amy EDWADRSC, GRIZZLYMAN-C Primary Care Provider Activ e Start: December 30, 2024 Dr. Poli Barfield DO Emergency Provider Active Start : December 30, 2024 Dr. David Bain MD Admit Provider Active Sta rt: December 30, 2024 Dr. David aBin MD Attending Provider Active Start: December 30, 2024 Team Status: Inactive Member Role Status Dates Amy EDWARDSC, GRIZZLYMAN-C Primary Care Provider Activ e Start: December 30, 2024 End: December 31, 2024 Dr. Poli Barfield DO Emergency Provider Active Start : December 30, 2024 End: December 31, 2024 Dr. David Bain MD Admit Provider Active Sta rt: December 30, 2024 End: December 31, 2024 Dr. David Bain MD Attending Provider Active Start: December 30, 2024 End: December 31, 2024 Team Status: Active Member Role Status Dates Amy EDWARDSC, GRIZZLYMAN-C Primary Care Provider Activ e Start: December 30, 2024 Dr. Poli Barfield DO Emergency Provider Active Start : December 30, 2024 Dr. David Bain MD Admit Provider Active Sta rt: December 30, 2024 Dr. David Bain MD Attending Provider Active Start: December 30, 2024 Dr. David Bain MD Other Provider Active Sta rt: December 30, 2024 INFORMATION SOURCE (unrecogn ized section and content) DATE CREATED AUTHOR 01/24/2023 [facility] DATE CREATED AUTHOR AUTHOR'S ORGANIZ ATION 02/18/2023 [facility] DATE CREATED AUTHOR AUTHOR'S ORGANIZ ATION 04/19/2023 [facility] ([place]) DATE CREATED AUTHOR AUTHOR'S ORGANIZ ATION 02/02/2024 [facility] DATE CREATED AUTHOR AUTHOR'S ORGANIZ ATION 07/05/2024 [facility] DATE CREATED AUTHOR AUTHOR'S ORGANIZ ATION 12/28/2024 [facility] Scheduled Active and Recently Administ ered [...] BE BASED ON THE PRIMARY CLINICAL RECORDS. [employer] provides no warranty or guarantee of the accuracy or completeness of information in this document.
[2024-12-31 19:46] LABS: Color, Urine Yellow (Yellow); Glucose, Dipstick Normal (Normal); Ketone-Dipstick 5 mg/dl (Negative); Leukocyte Esterase-Dipstick 100 /ul (Negative); Nitrite-Dipstick Negative (Negative); Occult Blood-Urine 25 /ul (Negative); Protein-Dipstick 30 mg/dl (Negative); Urine Bilirubin Dipstick Negative (Negative); Urine Clarity Cloudy (Clear); Urine Urobilinogen Normal (Normal)
[2024-12-31 19:59] LABS: Bedside Glucose 140 mg/dL (74-106)
[2024-12-31 20:00] LABS: Bedside Glucose 152 mg/dL (74-106)
[2024-12-31 20:09] LABS: Anion Gap 15 (5-15); BETA-HYDROXYBUTYRATE 0.6 mmol/L (0.0-0.3); BUN 7 mg/dL (4-19); BUN/Creat Ratio 7.1 RATIO (10-20); Calcium,Total 9.1 mg/dL (7.6-11.0); Carbon Dioxide 20.4 mmol/L (21.0-32.0); Chloride 105 mmol/L (98-108); Creatinine, Serum 0.99 mg/dL (0.70-1.20); EST Glomerular Filtration Rate 77 (>60); Estimated Creatinine Clearance 101.44 ml/min (50-250); Glucose 160 mg/dL (70-99); Potassium 3.8 mmol/L (3.3-5.1); Sodium Level 140 mmol/L (133-145)
[2024-12-31 20:35] LABS: Bacteria 3+ /hpf (None Seen); Squamous Epithelial Cells - UA 0-5 SEEN /hpf (5-10); White Blood Cells 0-5 SEEN /hpf (0-5)
[2024-12-31] MEDS: NORMAL SALINE 0.9% IV (20:55)
[2024-12-31] MEDS: DIPHENHYDRAMINE IV (20:55)
[2024-12-31] MEDS: CHLORPROMAZINE IV (20:55)
[2024-12-31 21:41] LABS: Anion Gap 13 (5-15); BUN 7 mg/dL (4-19); Calcium,Total 8.2 mg/dL (7.6-11.0); Carbon Dioxide 18.2 mmol/L (21.0-32.0); Chloride 108 mmol/L (98-108); Creatinine, Serum 0.85 mg/dL (0.70-1.20); EST Glomerular Filtration Rate 93 (>60); Estimated Creatinine Clearance 118.14 ml/min (50-250); Glucose 177 mg/dL (70-99); Potassium 3.7 mmol/L (3.3-5.1); Sodium Level 139 mmol/L (133-145)
[2024-12-31 21:53] LABS: Bedside Glucose 169 mg/dL (74-106)
--- NOTE | 2024-12-31 22:33 | HP.PCM.HOS_ITS ---
[facility] - General General Date of Admission: 12/31/24 Date of Service: 12/31/24 Chief Complaint: Hyperglycemia with N/V after Leaving AMA while being treated for DKA. [facility] Narrative SHOLA GIVENS, is a 34 F with a past medical history of obesity; with BMI of 38.4 this admission, DM-2; uncontrolled with hyperglycemia with history of DKA and diabetic neuropathy on insulin glargine 20 units twice daily, history of Right diabetic foot ulcer; with history of MRSA and s/p TMA (2021), history of cyclic vomiting disorder; at least partially caused by cannabis abuse, chronic asthma; probably intermittent, depression with anxiety, borderline personality disorder, chronic insomnia, IBS; of constipation-type on linaclotide, GERD, history of admission here for stercoral colitis December 03, 2024 and very recent admission here on December 30, 2024 for treatment of DKA with history of DM-2 complicated by cyclic vomiting disorder who then inexplicably left this hospital AMA from the ICU on the morning of December 31, 2024 who now re-presents to [facility] [place] [facility] complaining of hyperglycemia with intractable nausea and vomiting. Ms. Givens reports after leaving the hospital she went home and went to sleep and then woke up with intractable nausea and vomiting. She also admits to severe cramping abdominal pain similar to her previous bout of DKA. She then checked her blood sugar and noted it had been continuing to climb in spite of being unable to eat so she finally decided to come back in for further evaluation and treatment. She denies associated fever, chills, runny nose, sore throat, ear pain, chest pain, palpitations, heart racing, shortness of breath, cough, dysuria, hematuria, back pain or rash. In the ER she was noted to have mild hyperglycemia at 177 mg/dL with an elevated beta hydroxybutyric acid of 0.6 mmol/L present on admission consistent with recurrent DKA complicated by cyclical nausea and vomiting with cramping abdominal pain in the setting of medical noncompliance with patient is having left AMA from the ICU earlier this morning. She was then admitted to the ICU for ongoing care for stay that expected to extend beyond 2 midnights. [facility] Medical History Type 2 diabetes mellitus with peripheral neuropathy Diabetes GERD (gastroesophageal reflux disease) Wears glasses History of MRSA infection Borderline personality disorder Alcohol use Insulin dependent diabetes mellitus Dietary restriction Heartburn Smoker Shortness of breath on exertion Leg cramps Neuropathy, diabetic Elevated serum creatinine Failure of outpatient treatment Nausea and vomiting Diabetes mellitus with diabetic polyneuropathy Type 2 diabetes mellitus with foot ulcer Anxiety Depression Constipation Asthma Diabetes Home Medications ?Medication ?Instructions ?Recorded ?Last Taken ?Type insulin glargine 100 unit/mL (3 20 unit subcut BID doreen betes 08/12/22 12/29/24 History mL) subcutaneous pen (Lantus Solostar U-100 Insulin) albuterol sulfate 90 mcg/actuation 2 puff inhalation Q 4H PRN 11/25/24 Unknown History aerosol inhaler shortness of breath or wheez ing dulaglutide 4.5 mg/0.5 mL 4.5 mg subcut SA diabetes 11/18/24 History subcutaneous pen injector (Trulicity) linaclotide 145 mcg capsule 145 mcg PO QAM IBS #30 cap s 12/13/24 12/29/24 Rx (Linzess) Allergy/AdvReac Type Severity Reaction Status Date / Time No Known Allergies Allergy Verified 12/31/24 18:33 Family History Other Bleeding disorder Cancer Diabetes Hypertension Surgical History Hx of foot surgery Hx of foot surgery Social History Smoking Status: Former smoker alcohol intake: never substance use type: does not use what type of physical activity do you participate in: none ROS ROS Narrative Review of Systems: Constitutional: Patient denies fever or chills. Eyes: Patient denies change in vision or discharge from eyes. ENT: Patient denies runny nose, sore throat or ear pain. Resp: Patient denies shortness of breath or cough. CV: Patient denies chest pain, palpitations, heart racing or lower extremity edema. GI: Patient admits to nausea and vomiting with bilious emesis with diffuse cramping abdominal pain as per HPI. : Patient denies dysuria, hematuria or urinary frequency. MSK: Patient denies arthralgias or myalgias. Skin: Patient denies rash, wounds or abscess. Psych: Patient denies symptoms of uncontrolled depression or anxiety. Neuro: Patient denies headache, paresthesias or focal neurologic deficits. Allergy: Patient denies lip swelling, tongue swelling or urticaria. Hematology: Patient denies easy bleeding or easy bruisability. Endocrinology: Patient denies polyuria, polydipsia, polyphagia or heat/cold intolerance. 14 point ROS otherwise negative except for positives noted above in HPI. Vital Signs Vital Signs Vital Signs: 12/31/24 18:33 12/31/24 19:33 12/31/24 19:37 Temperature 97.6 F L Temperature Source Temporal Pulse Rate 96 84 Respiratory Rate 16 20 H Respiratory Effort Normal Non-Labored Respiratory Pattern Tachypnea Blood Pressure 153/128 H 120/105 H Blood Pressure Mean 136 110 Pulse Ox 100 100 Oxygen Delivery Method Room Air Room Air 12/31/24 20:00 12/31/24 21:00 12/31/24 22:00 Temperature Temperature Source Pulse Rate 79 94 91 Respiratory Rate 22 H 23 H 20 H Respiratory Effort Respiratory Pattern Blood Pressure 151/90 H 146/89 H 143/85 H Blood Pressure Mean 110 108 104 Pulse Ox 100 97 97 Oxygen Delivery Method Room Air Room Air Room Air Weight Weight: 238 lb Body Mass Index (BMI) 38.4 Physical Exam Const alert and oriented x3 Constitutional Narrative: Obese with moderate distress noted. General Appearance: cooperative HEENT normocephalic, head/scalp atraumatic and hearing grossly normal bilaterally HEENT Narrative: Mucous membranes dry. Eyes PERRL, EOMs intact bilaterally and conjunctivae normal Neck no lymphadenopathy, supple and no JVD Resp normal respiratory effort, no retractions, no use of accessory muscles and clear to auscultation bilaterally Cardio regular rate and regular rhythm GI soft to palpation and non-distended GI Narrative: Generalized tenderness to palpation with no guarding or rebound. Extremity normal to inspection, full ROM and no clubbing, cyanosis or edema Skin Skin Narrative: Patient denies rash, abscess, wounds or jaundice. Neuro oriented x3, CN's II-XII intact bilaterally, moves all extremities and no focal motor deficits Sensorium / Orientation: awake, alert, oriented to person, oriented to place and oriented to time Speech: speech normal Psych Mood & Affect: anxious Results Medical Records Data Attestation: I reviewed the patient's medical records Lab / Micro Data Attestation: I reviewed the patient's lab results. 12/31/24 19:30 12/31/24 23:58 Labs: Laboratory Results - last 24 hr 12/31/24 18:39: POC Glucose 140 H 12/31/24 19:30: WBC 9.9, RBC 4.53, Hgb 12.4, Hct 38.0, MCV 83.9, MCH 27.4, MCHC 32.6, RDW Std Deviation 43.4, RDW Coeff of John 14.3, Plt Count 400, MPV 9.5, Immature Gran % (Auto) 0.700, Neut % (Auto) 64.4, Lymph % (Auto) 27.7, Dickson % (Auto) 6.4, Eos % (Auto) 0.3, Baso % (Auto) 0.5, Absolute Neuts (auto) 6.4, Absolute Lymphs (auto) 2.74, Nucleated RBC % 0, Sodium 140, Potassium 3.8, Chloride 105, Carbon Dioxide 20.4 L, Anion Gap 15, BUN 7, Creatinine 0.99, Estim Creat Clear Calc 101.44, Est GFR (MDRD) Non-Af 77, BUN/Creatinine Ratio 7.1 L, G lucose 160 H, Calcium 9.1, b-Hydroxybutyric mmol/L 0.6 H, Urine Color Yellow, Urine Clarity Cloudy, Urine pH 6.0, Ur Specific Hardin 1.020, Urine Protein 30 H, Urine Glucose (UA) Normal, Urine Ketones 5 H, Urine Occult Blood 25 H, Urine Nitrite Negative, Urine Bilirubin Negative, Urine Urobilinogen Normal, Ur Leukocyte Esterase 100 H, Urine RBC 0 SEEN, Urine WBC 0-5 SEEN, Ur Squamous Epith Cells 0-5 SEEN, Urine Bacteria 3+, Urine Mucus 0 SEEN 12/31/24 19:43: POC Glucose 152 H 12/31/24 21:20: Sodium 139, Potassium 3.7, Chloride 108, Carbon Dioxide 18.2 L, Anion Gap 13, BUN 7, Creatinine 0.85, Estim Creat Clear Calc 118.14, Est GFR (MDRD) Non-Af 93, BUN/Creatinine Ratio 8.0 L, Glucose 177 H, Calcium 8.2 12/31/24 21:35: POC Glucose 169 H ABG Data ABG results: ABG 12/31/24 19:36 Specimen Type ESTRELLA Sample Site Not entered VBG pH 7.49 H VBG pO2 22 L VBG HCO3 24 VBG Total CO2 25 VBG O2 Sat (Calc) 43 L VBG Base Excess 0 POC Mix VBG pCO2 Pt Tmp 30.7 L O2 Delivery Device Room Air Assessment & Plan Assessment/Plan (1) Diabetic ketoacidosis: QUALIFIERS: Diabetes mellitus complication detail: without coma D iabetes mellitus type: type 2 Qualified Code(s): E11.10 - Type 2 diabetes mellitus with ketoacidosis without coma (2) Cyclic vomiting syndrome: (3) Cannabis abuse: (4) Medical non-compliance: (5) Depression with anxiety: (6) Borderline personality disorder: (7) Obesity (BMI 30-39.9): (8) Type 2 diabetes mellitus with peripheral neuropathy: PLAN: Plan 1. DKA; evidenced by persistent hyperglycemia with elevated beta hydroxy butyric acid of 0.6 mmol/L present on admission - Admit to ICU. Continue IV insulin begun in the ER and titrate per protocol. We will consult clinical dietitian for further diabetic teaching to help this patient optimize her understanding of how to treat her condition without appreciated in advance. 2. Cyclical vomiting syndrome in the setting of ongoing cannabis abuse complicating #1 - Give ondansetron IV prn for nausea and vomiting. Give promethazine prn for breakthrough nausea. Place scopolamine patch to help break cycle of GI upset. Cannabis cessation will be strongly encouraged. 3. Very recent admission here on December 30, 2024 for treatment of DKA with history of DM-2 complicated by cyclic vomiting disorder who then inexplicably left this hospital AMA from the ICU on the morning of December 31, 2024 constituting medical noncompliance precipitating #1 & #2 - Patient will be encouraged not to leave AMA to avoid further serial readmission. 4. Uncontrolled Depression with Anxiety in the setting of borderline personality disorder adding to the medical complexity of #1 - #3 - Give low-dose IV lorazepam for breakthrough symptoms. 5. Obesity; with BMI of 38.4 this admission adding to the burden of disease outlined from #1 - #4 - Weight loss will be recommended. Check TSH. This complicates her case may have recovery. 6. DM-2; uncontrolled with hyperglycemia with history of DKA and diabetic neuropathy on insulin glargine 20 units twice daily - We will attempt to transition patient back onto her normal insulin regimen after she completes insulin drip as outlined in #1. 7. History of Right diabetic foot ulcer; with history of MRSA and s/p TMA (2021) - Noted. 8. Chronic asthma; probably intermittent - Stable no evidence of acute flare at this time. 9. Chronic insomnia - Give IV lorazepam as needed. 10. IBS; of constipation-type on linaclotide - Restart this agent when patient is able to resume oral intake. 11. GERD - Start pantoprazole IV in light of #1 & #2. 12. History of admission here for sterile coral colitis December 03, 2024 - Noted. 13. DVT prophylaxis - Enoxaparin 40 mg sq daily plus SCD's. Total time: Approximately (but not less than) 75 minutes. Charges/Coding Visit Charges Inpatient E&M: 16625 Init Hosp L3
[2024-12-31] MEDS: KCL 20MEQ in D5.45NS 20 MEQ/1,000 ML IV.SOLN. 150 MEQ IV (23:10)
[2024-12-31] MEDS: Insulin Lispro 100 UNIT in 0.9% Normal Saline (100mL Bag) 99 ML 10.8 UNIT CONT INF (23:13)
[2024-12-31] MEDS: Hyoscyamine Sulfate 0.125 MG Tablet 0.25 MG SL (23:16)
[2024-12-31 23:21] LABS: BETA-HYDROXYBUTYRATE 0.5 mmol/L (0.0-0.3)
--- OUTSIDE RECORDS SUMMARY | 2024-12-31 23:24 | XMS RPT_ITS | CCD ---
Author Organization [facility] CliniSyct Care Team Providers Care Retail Representative Name Role Phone Care Physician, No Primary Primary Care Provider Unavailable Care Physician, No Primary Referring Provider Un available Friend, Dr. Riddle Attending Provider Unavailable Primary Care Provider MIGUEL A Kraus Attending Provider [phone] Dr. Fabricio Guevara Emergency Provider Dr. Rickey [...] Other Provider Dr. Andres Matias Other Provider [phone] Norma, Dr. Soto Other Provider [phone] Dr. Alex Christiansen Emergency Provider [phone] Carlitos, Dr. [place] Admit Provider Carlitos, Dr. [place] Attending Provider Carlitos, Dr. [place] Other Provider Dr. Lexus Villatoro Attending Provider Dr. Lexus Villatoro Other Provider Unavailable Primary Care Provider Unavailarpita Solorzano JOB LITHOGRAPHER, [facility] Primary Care Provider [facility] Pro vider Dr. Willie Dhillon Emergency Provider Dr. Lexus Villatoro Admit Provider Dr. Lexus Villatoro Attending Provider Dr. Lexus Villatoro Other Provider ABDIRIZAK RAMIREZ Attending Unavailable RASHAD [facility] Primary Care Unavailable [facility] Primary [facility] Emergency Department Provider RASHAD STAGE ELECTRICIAN-KIER PLEATER, [facility] Physicia n DEWAYNE CHACON DO Attending Unavailable DEWAYNE CHACON DO Primary Care Unavailable DEWAYNE CHACON DO Admitting Unavailable GERALDINE ROLAND Admitting Unavailable GERALDINE ROLAND Attending Unavailable GERALDINE ROLAND Primary Care [facility] Primary Care Pro vider Dr. Willie Dhillon Emergency Provider Dr. Lexus Villatoro Admit Provider Dr. Lexus Villatoro Attending Provider Dr. Lexus Villatoro Other Provider ESSIE DOWNS DO Attending Unavailable GERALDINE SILVA DO Referring Unavailable RASHAD STAGE E[employer]RICIAN[employer]KI[employer] PLEATER, AMY Primary Care Unava fanny WEBB STAGE ELECTRICIAN-KIER PLEATER, MATRI Matthews Attending Amadavai HELENA Glynn Admitting Unavailable [...] Provider Dr. Rickey Gifford Other Provider Rashad JOB LITHOGRAPHER, Amy Primary Care Provider Care Physician, No Primary Primary Care Provider Unavailable Dr. Javy Doss Emergency Provider Dr. Rickey Gifford Attending Provider Dr. Abdirizak Forrest Other Provider Dr. Rickey Gifford Admit Provider Dr. Rickey Gifford Other Provider Rashad JOB LITHOGRAPHER, Amy Primary Care Provider KHDELFNIO, KAMAL Admitting Unavailable KHDELFINO KAMAL Attending Unavailable RASHAD, AMY Primary Care Unavailable CAYETANO TAI Consulting Unavailable Unavailable Primary Care Provider Unavailabl e RASHAD, AMY Primary Care Unavailable IRAIS HANNA Referring Unavailable RASHAD, AMY Primary Care Unavailable [place], AMY Primary Care Unavailable Rashad JOB LITHOGRAPHER-C, Amy Primary Care Provider Rashad JOB LITHOGRAPHER-C, Amy Attending Provider Lon DPM, Dr. Rothman Attending Provider Lon DPM, Dr. Rothman Referring Provider Sravan BOYCE, Drew Emergency Provider Maira BOYCE, Dr. Brenda Ng Admit Provider Maira BOYCE, Dr. Brenda Ng Attending Provider Maira BOYCE, Dr. Brenda Ng Other Provider Yuri BOYCE, Dr. Woody Other Provider Be KIM, Dr. eBasley Attending Provider Yuri BOYCE, Dr. Woody Attending Provider Maira BOYCE, Dr. Brenda Ng Attending Provider Be KIM, Dr. Beasley Other Provider Clare Loo PA-C Attending Provider Yulyia BOYCE, Dr. Tony Peterson Attending Provider Be KIM, Dr. Beasley Referring Provider Clare Loo PA-C Attending Provider Rashad JOB LITHOGRAPHER-C, Amy Referring Provider Nayana Grigsby Attending Provider Nayana Grigsby Referring Provider Kalee Peter Referring Provider Unavailable [facility], Amy Referring Unavailarpita e Nayana Peter Attending Unavailable [facility], Amy Primary Care Unavailabl e Maira, Brenda Berenice Admitting Unavailable Annalise Welch Consulting Unavailable Gale Lr Attending Unavailable [facility], Amy Primary Care Unavailabl e Maira, Brenda Berenice Consulting Unavailable [facility] Consulting Unavailable Annalise Welch Attending Unavailable [facility] Referring Unavailable Clare Steve Attending Unavailable Kordaphne Brendalori Ng Attending Unavailable [facility], [facility] Primary [facility] Emergency Department Unavailabl e Nayana Peter Attending Unavailable Kalee Peter Referring Unavailable [facility], [facility] Primary Care Unavailabl e [facility], Amy Attending Unavailabl e Abdirizak Forrest Referring Unavailable Abdirizak Forrest Attending Unavailable [facility], [facility] Primary [facility] Emergency Department Unavailabl e [facility], [facility] Primary Care Unavailabl e [facility], Amy Attending Unavailabl e Koram, Brenda Berenice Admitting Unavailable Robotchase, Annalise Consulting Unavailable [facility] Attending Unavailable [facility], [facility] Primary Care Unavailabl e Kordaphne, Brenda Berenice Consulting Unavailable [facility], [facility] Unavailabl e Nayana Peter Attending Unavailable Nayana Peter Referring Unavailable Abdirizak Forrest Referring Unavailable Abdirizak Forrest Attending Unavailable [facility], [facility] Primary [facility] Emergency Department Unavailabl e [facility], [facility] Primary Care Unavailabl e Venkatesh Torres Attending Unavailable Nayana Peter Attending Unavailable Nayana Peter Referring Unavailable [facility], [facility] Unavailabl e Dr. Poli Barfield DO Emergency Provider Odell BOYCE, Dr. Hernandez Admit Provider Odell BOYCE, Dr. Hernandez Attending Provider Odell BOYCE, Dr. Hrenandez Other Provider [phone] Allergies Allergy Classification Reported Allergen(s) Allergy Type Date of Onset Reaction(s) Facility (2 sources) Cephalexin Drug Allergy 10-31-2013 Other: See Comments [facility] Work Phone: Medications Current Medications Medication Drug Class(es) Dates Sig (Normalized) Sig (Original) [id number] 200 actuat albuterol 0.09 mg/actuat metered dose [...] 0 Refill(s), 02/18/23 5:07:00 PM EDT, Pharmacy: [id number], 169.9, cm, 02/11/23 1:49:00 EDT, Height, [...] on above: Take 1 capsule by mo [facility] three times daily for 7 days. [...] extended release oral tablet (1 source) Uncompetitive B-lrsxap-M-aspartate Receptor Antagonist, Sigma-1 Agonist Start: End: take 1 tablet by mouth every twelve hours as needed dextromethorphan-gua iFENesin (MUCINEX DM) 30-600 mg per tablet Take 1 tablet by mouth two times a day as needed for cough for up to 7 days. 14 tablet 07/03/2024 07/10/2024 Active docusate sodium 50 mg / sennosides, correction 8.6 mg oral tablet (6 sources) Start: [...] January 30, 2022 12:00am polyethylene glycol 3350 465371 mg / potassium chloride 2970 mg / sodium bicarbonate 6740 mg / sodium chloride 5860 mg / sodium sulfate 54118 mg powder for oral solution (20 sources) [...] on above: Take 2 tablets by mo [facility] every 6 hours as needed. 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 Fax to [phone] routine picc care per protocol (2 sources) [...] Start: 03-04-2023 take 2 tablets by mo [facility] every six hours as needed acetaminophen (TYLENOL EXTRA STRENGTH) 500 mg tablet Take 2 tablets by mouth every 6 hours as needed for pain. 30 tablet 03/04/2023 Active Comment on above: Take 2 tablets by mo [facility] every 6 hours as needed for [...] 05-04-2023 Start: 10-24-2021 take 1 tablet by [facility] every six hours as needed Hydrocodone-Acetaminophen [...] Comment on above: Take 1 capsule by [facility] three times daily as needed for cough. [...] 3:13pm Start: 10-29-2021 take 1 capsule by [facility] once daily Docusate Sodium (Colace) 100 mg [...] Discontinued End: 03-23-2022 MULTIVITAMIN ORAL Take by [facility]. 0 03/23/2022 Discontinued MULTIVITAMIN ORA L Take [...] 6 hours as needed. polyethylene glycol 3350 56936 mg powder for oral solution (20 sources) [...] Start: 06-06-2021 End: 02-18-2023 polyethylene glycol 3350 (SD RALAX, GLYCOLAX) 17 gram/dose powder Take 17 [...] today or tomorrow to set up appointment. hazardous waste material technician called to schedule appointment. I had to [...] 12-31-2024 Anion gap [Moles/Vol] 12 mmol/L 5-15 [facility] BUN/creatinine ratioOrdered By: David Bain on 12-31-2024 Urea nitrogen/Creatinine [Mass ratio] 10.2 mg/mg 10- [facility] Beta-hydroxybutyrateOrdered By: Dewayne Duff on 12-31-2024 Beta hydroxybutyrate [Mass/Vol] 0.1 mmol/L 0.0-0.3 [facility] Carbon dioxide, total [Moles /volume] in Central venous bloodOrdered By: David Bain on 12-31-2024 CO2 [Moles/Vol] 21.3 mmol/L 21.0-32.0 [facility] Chloride assayOrdered By: Dwaine Bain on 12-31-2024 Chloride [Moles/Vol] 106 mmol/L 98-108 [facility] Glomerular filtration rate ( GFR) estimation/1.73 sq m using serum, plasma, or whole bOrdered By: David Bain on 12-31-2024 GFR/1.73 sq M.predicted among non-blacks MDRD (S/P/Bld) [Vol rate/Area] 97 mL/min/{1.73_m2} >60 [facility] Comment on above: mL/min/1.73m2 CKD-EP I Creatinine Equation (2020) [facility] deOrdered By: David Bain on 12-31-2024 Glucose [Mass/Vol] 147 mg/dL High 74-106 [facility] Comment on above: MANAGEMENT OF PATIEN T CARE PER NURSING PROTOCOL Hemoglobin A1c percentageOrd ered By: David Bain on 12-31-2024 HbA1c (Bld) [Mass fraction] 8.5 % High <5.7 [facility] Comment on above: Normal < 5.7 % Predi abetic 5.7 - 6.4 % Diabetic >or= 6.5 % Please note range changes. Potassium measurement (mass/ volume)Ordered By: David Bain on 12-31-2024 Potassium (Unsp spec) [Mass/Vol] 3.6 mmol/L 3.3-5.1 [facility] Serum creatinine measurement (mass/volume)Ordered By: David Bain on 12-31-2024 Creatinine [Mass/Vol] 0.82 mg/dL 0.70-1.20 [facility] Serum glucose measurement (m ass/volume)Ordered By: David Bain on 12-31-2024 Glucose [Mass/Vol] 129 mg/dL High 70-99 [facility] Serum or plasma calcium hussein urement (mass/volume)Ordered By: David Bain on 12-31-2024 Calcium [Mass/Vol] 8.2 mg/dL 7.6-11.0 [facility] Serum or plasma urea nitroge n measurement (mass/volume)Ordered By: David Bain on 12-31-2024 Urea nitrogen [Mass/Vol] 8 mg/dL 4-19 [facility] Sodium levelOrdered By: Darnell Bain on 12-31-2024 Sodium [Moles/Vol] 138 mmol/L 133-145 [facility] Absolute lymphocyte countOrd ered By: Poli Barfield on 12-30-2024 Lymphocytes Auto (Unsp spec) [#/Vol] 3.14 10*3/uL 0.83-4.51 [facility] Absolute neutrophil countOrd ered By: Poli Barfield on 12-30-2024 Neutrophils (Bld) [#/Vol] 9.4 10*3/uL High 2.0-7.7 [facility] Amphetamine detection with 1 000 ng/mL as cutoffOrdered By: Poli Barfield on 12-30-2024 Amphetamines Screen method >1000 ng/mL Ql (U) Negative < 200 ng/mL [facility] Anion gap in Serum or Plasma Ordered By: Poli Barfield on 12-30-2024 Anion gap [Moles/Vol] 20 mmol/L High 5-15 [facility] Automated lymphocyte count a s percentage of total leukocytesOrdered By: Poli Barfield on 12-30-2024 Lymphocytes/100 WBC Auto (Unsp spec) 23.6 % 19-41 [facility] BUN/creatinine ratioOrdered By: Poli Barfield on 12-30-2024 Urea nitrogen/Creatinine [Mass ratio] 11.1 mg/mg 10-20 [facility] Basophil percentageOrdered B y: Poli Barfield on 12-30-2024 Basophils/100 WBC (Bld) 0.3 % 0-1 [facility] Bilirubin Test strip Ql (U)O rdered By: Poli Barfield on 12-30-2024 Bilirubin Ql (U) 3 mg/dL High Negative [facility] Comment on above: COLOR OF URINE MAY A FFECT DIPSTICK RESULTS. Bilirubin, totalOrdered By: Poli Barfield on 12-30-2024 Bilirubin [Mass/Vol] 0.65 mg/dL 0.00-1.30 [facility] CO2 (BldV) [Moles/Vol]Ordere d By: David Bain on 12-30-2024 CO2 [Moles/Vol] 30 mmol/L -33 [facility] Carbon dioxide, total [Moles /volume] in Central venous bloodOrdered By: Poli Barfield on 12-30-2024 CO2 [Moles/Vol] 19.2 mmol/L Low 21.0-32.0 [facility] Chloride assayOrdered By: Demetrio Barfield on 12-30-2024 Chloride [Moles/Vol] 97 mmol/L Low 98-108 [facility] Eosinophil percentageOrdered By: Poli Barfield on 12-30-2024 Eosinophils/100 WBC (Bld) 0.0 % 0-5 [facility] Erythrocyte distribution wid th ratioOrdered By: Poli Barfield on 12-30-2024 Erythrocyte distribution width (RBC) [Ratio] 14.3 % 11.6-14.6 [facility] Erythrocyte distribution wid th standard deviationOrdered By: Poli Barfield on 12-30-2024 Erythrocyte distribution width (RBC) [Ratio] 41.4 fl 35.1-43.9 [facility] Glomerular filtration rate ( GFR) estimation/1.73 sq m using serum, plasma, or whole bOrdered By: Poli Barfield on 12-30-2024 GFR/1.73 sq M.predicted among non-blacks MDRD (S/P/Bld) [Vol rate/Area] 60 mL/min/{1.73_m2} >60 [facility] Comment on above: mL/min/1.73m2 CKD-EP I Creatinine Equation (2020) Hematocrit Auto (Bld) [Volum e fraction]Ordered By: Poli Barfield on 12-30-2024 Hematocrit (Bld) [Volume fraction] 39.2 % 37-47 [facility] Hemoglobin measurementOrdere d By: Poli Barfield on 12-30-2024 Hemoglobin (Bld) [Mass/Vol] 13.2 g/dL 12.0-15.0 [facility] Immature granulocytes/100 WB C Auto (Bld)Ordered By: Poli Barfield on 12-30-2024 Immature granulocytes/100 WBC (Bld) 0.600 % 0.0-0.9 [facility] Comment on above: IG% - Immature Granu locytes (promyelocytes, myelocytes and metamyelocytes) > 1% indicates that a LEFT SHIFT is Present. Ketones Test strip Ql (U)Ord ered By: Poli Barfield on 12-30-2024 Ketones Ql (U) 50 mg/dl High Negative [facility] Laboratory - Chemistry and C hemistry - challengeOrdered By: Poli Barfield on 12-30-2024 AST [Catalytic activity/Vol] 16 U/L <32 [facility] Lipase measurementOrdered By : Poli Barfield on 12-30-2024 Lipase [Catalytic activity/Vol] 25 U/L 13-75 [facility] Comment on above: Please note:LIPASE r evised reference range effective 22. New Lipase methodology. Expected to produce lower values than the previous assay method. NEW Reference Range: 13 - 75 U/L MCV (mean corpuscular volume ) determinationOrdered By: Poli Barfield on 12-30-2024 MCV (RBC) [Entitic vol] 81.8 fL 81-99 [facility] Magnesium measurement (mass/ volume)Ordered By: David Bain on 12-30-2024 Magnesium (Unsp spec) [Mass/Vol] 1.8 mg/dL 1.5-2.2 [facility] Mean corpuscular hemoglobin (MCH) determinationOrdered By: Poli Barfeild on 12-30-2024 MCH (RBC) [Entitic mass] 27.6 pg 27.0-32.0 [facility] Mean corpuscular hemoglobin concentration (MCHC) determinationOrdered By: Poli Barfield on 12-30-2024 MCHC (RBC) [Mass/Vol] 33.7 g/dL 32-36 [facility] Mean platelet volume determi nationOrdered By: Poli Barfield on 12-30-2024 Platelet mean volume (Bld) [Entitic vol] 9.7 fL 6.2-12.0 [facility] Microscopic analysis of urin e for red blood cells (RBC)Ordered By: Poli Barfield on 12-30-2024 Microscopic analysis of urine for red blood cells (RBC) 0 SEEN /hpf 0-5 [facility] Monocyte percentageOrdered B y: Poli Barfield on 12-30-2024 Monocytes/100 WBC (Bld) 4.8 % 0-10 [facility] Mucus LM Ql (Urine sed)Order ed By: Poli Barfield on 12-30-2024 Mucus Ql (Urine sed) 0 SEEN /hpf [facility] Neutrophil percentageOrdered By: Poli Barfield on 12-30-2024 Neutrophils/100 WBC (Bld) 70.7 % High 47-70 [facility] Nitrite Test strip Ql (U)Ord ered By: Poli Barfield on 12-30-2024 Nitrite Ql (U) Negative Negative [facility] No Panel InformationOrdered By: David Bain on 12-30-2024 Blood Gas Sample Site Not entered [facility] Blood Gas Specimen Type ESTRELLA [facility] Oxygen Delivery Device Room Air [facility] No Panel InformationOrdered By: Poli Barfield on 12-30-2024 Urine Buprenorphine Qualitative Negative < 200 ng/mL [facility] Urine Oxycodone Screen Negative < 100 ng/mL [facility] Nucleated red blood cell per centageOrdered By: Poli Barfield on 12-30-2024 Nucleated RBC/100 WBC (Bld) [Ratio] 0 % 0-5 [facility] Platelet countOrdered By: Demetrio Barfield on 12-30-2024 Platelets (Bld) [#/Vol] 430 10*3/uL 150-450 [facility] Potassium measurement (mass/ volume)Ordered By: Poli Barfield on 12-30-2024 Potassium (Unsp spec) [Mass/Vol] 3.4 mmol/L 3.3-5.1 [facility] Protein Test strip Ql (U)Ord ered By: Poli Barfield on 12-30-2024 Protein Ql (U) 30 mg/dl High Negative [facility] Quantitative urine opiates m easurementOrdered By: Poli Barfield on 12-30-2024 Opiates Ql (U) Negative < 300 ng/mL [facility] RBC Auto (Bld) [#/Vol]Ordere d By: Poli Barfield on 12-30-2024 RBC (Bld) [#/Vol] 4.79 10*6/uL 4.2-5.4 [facility] Screening urine fentanyl kedar surementOrdered By: Poli Barfield on 12-30-2024 fentaNYL Screen Ql (U) Negative [facility] Serum beta-hCG test, qualita tiveOrdered By: Poli Barfield on 12-30-2024 Beta HCG ( test) Ql Negative [facility] Serum creatinine measurement (mass/volume)Ordered By: Poli Barfield on 12-30-2024 Creatinine [Mass/Vol] 1.22 mg/dL High 0.70-1.20 [facility] Serum globulin measurementOr dered By: Poli Barfield on 12-30-2024 Globulin (S) [Mass/Vol] 4.4 g/dL High 2.2-4.2 [facility] Serum glucose measurement (m ass/volume)Ordered By: Poli Barfield on 12-30-2024 Glucose [Mass/Vol] 359 mg/dL High 70-99 [facility] Serum or plasma alanine jordan otransferase (ALT) measurementOrdered By: Poli Barfield on 12-30-2024 ALT [Catalytic activity/Vol] 12 U/L <35 [facility] Serum or plasma albumin hussein urement (mass/volume)Ordered By: Poli Barfield on 12-30-2024 Albumin [Mass/Vol] 4.2 g/dL 3.5-5.0 [facility] Serum or plasma albumin/glob ulin mass ratioOrdered By: Poli Barfield on 12-30-2024 Albumin/Globulin [Mass ratio] 0.9 {ratio} 0.9-2.4 [facility] Serum or plasma alkaline bradley sphatase measurementOrdered By: Poli Barfield on 12-30-2024 ALP [Catalytic activity/Vol] 91 U/L 35-104 [facility] Serum or plasma calcium hussein urement (mass/volume)Ordered By: Poli Barfield on 12-30-2024 Calcium [Mass/Vol] 9.7 mg/dL 7.6-11.0 [facility] Serum or plasma urea nitroge n measurement (mass/volume)Ordered By: Poli Barfield on 12-30-2024 Urea nitrogen [Mass/Vol] 14 mg/dL 4-19 [facility] Sodium levelOrdered By: Poli Barfield on 12-30-2024 Sodium [Moles/Vol] 137 mmol/L 133-145 [facility] Squamous epithelial cells de tection in urine sediment by light microscopyOrdered By: Poli Barfield on 12-30-2024 Epithelial cells.squamous LM Ql (Urine sed) 10-25 SEEN /hpf 5-10 [facility] Total proteinOrdered By: Devon Barfield on 12-30-2024 Protein [Mass/Vol] 8.6 g/dL High 5.9-8.4 [facility] Urine benzodiazepine levelOr dered By: Poli Barfield on 12-30-2024 Benzodiazepines Ql (U) Negative < 200 ng/mL [facility] Urine clarityOrdered By: Devon Barfield on 12-30-2024 Clarity (U) Sl. Cloudy Clear [facility] Urine cocaine levelOrdered B y: Poli Barfield on 12-30-2024 Cocaine Ql (U) Negative < 300 ng/mL [facility] Urine color determinationOrd ered By: Poli Barfield on 12-30-2024 Color (U) Yellow Yellow [facility] Urine cjtml-3-pzkvzecbncsuyw abinol (THC) measurementOrdered By: Poil Barfield on 12-30-2024 Cannabinoids Screen Ql (U) Positive < 50 ng/mL [facility] Comment on above: If confirmation test ing is needed, a separate order will be required to send out testing to the reference laboratory. Urine glucose detectionOrder ed By: Poli Barfield on 12-30-2024 Glucose Ql (U) 1000 mg/dl High Normal [facility] Urine leukocyte esterase det ection by dipstickOrdered By: Poli Barfield on 12-30-2024 Leukocyte esterase Test strip Ql (U) 500 /ul High Negative [facility] Urine pHOrdered By: Poli Barfield on 12-30-2024 pH (U) 5.0 [pH] 5.0 - 8.0 [facility] Urine phencyclidine (PCP) de tectionOrdered By: Poli Barfield on 12-30-2024 Phencyclidine Ql (U) Negative < 25 ng/mL [facility] Urine sediment bacteria coun t by microscopy (number/high power field)Ordered By: Poli Barfield on 12-30-2024 Bacteria LM.HPF (Urine sed) [#/Area] 0 /[HPF] None Seen [facility] Urine specific gravity measu rementOrdered By: Poli Barfield on 12-30-2024 Specific gravity (U) [Rel density] 1.025 1.002-1.030 [facility] Urine urobilinogen measureme ntOrdered By: Poli Barfield on 12-30-2024 Urobilinogen Ql (U) 1 mg/dl High Normal [facility] Venous blood base excess kedar surementOrdered By: David Bain on 12-30-2024 Base excess Calc (BldV) [Moles/Vol] 5 mmol/L High -1.0-3.5 [facility] Venous blood bicarbonate kedar surementOrdered By: David Bain on 12-30-2024 HCO3 (Bld) [Moles/Vol] 29 mmol/L High 22-26 [facility] Venous blood oxygen saturati on measurementOrdered By: David Bain on 12-30-2024 Oxygen saturation in Blood 68 % 50-70 [facility] Venous blood pH measurementO rdered By: David Bain on 12-30-2024 pH (BldV) 7.45 [pH] High 7.32-7.42 [facility] Venous blood partial pressur e of carbon dioxide measurementOrdered By: David Bain on 12-30-2024 CO2 (BldV) [Partial pressure] 42.2 mm[Hg] 41-51 [facility] Venous blood partial pressur e of oxygen measurementOrdered By: David Bain on 12-30-2024 Oxygen (BldV) [Partial pressure] 34 mm[Hg] 25-40 [facility] White blood cell (WBC) count Ordered By: Poli Barfield on 12-30-2024 WBC (Bld) [#/Vol] 13.3 10*3/uL High 4.4-11.0 [facility] White blood cell countOrdere d By: Poli Barfield on 12-30-2024 White blood cell count 5-10 SEEN /hpf 0-5 [facility] Abdomen Limitedon 12-25-2024 Abdomen Limited [facility] [address], [place] [id number] Abdomen Limited MR#: [id number] Acct: [id number] Name: GHISLAINE GIVENS Rep #: [id number] : 1990 F 34 From: Amy merrill MD PCP: BROOK[place]N Warren, JOB LITHOGRAPHER-C Status: REG CLI Study: Abdomen Limited Date of Exam: 12/25/24 Exam# [id number] Ordering Dr: Nayana Peter PROCEDURE: ABDOMEN LIMITED [...] of cholelithiasis or acute cholecystitis. Reading Location: [place] [address] CC: [facility] JOB LITHOGRAPHERKaykay Solorzano; MIGUEL A [facility] Stroke Physician: Signed Normal [facility] Absolute lymphocyte countOrd ered By: Nayana Peter on 12-13-2024 Lymphocytes Auto (Unsp spec) [#/Vol] 3.52 10*3/uL 0.83-4.51 [facility] Absolute neutrophil countOrd ered By: Nayana Peter on 12-13-2024 Neutrophils (Bld) [#/Vol] 5.0 10*3/uL 2.0-7.7 [facility] Anion gap in Serum or Plasma Ordered By: Nayana Peter on 12-13-2024 Anion gap [Moles/Vol] 13 mmol/L 5-15 [facility] Automated lymphocyte count a s percentage of total leukocytesOrdered By: Nayana Peter on 12-13-2024 Lymphocytes/100 WBC Auto (Unsp spec) 36.7 % 19-41 [facility] BUN/creatinine ratioOrdered By: Nayana Peter on 12-13-2024 Urea nitrogen/Creatinine [Mass ratio] 6.2 mg/mg Low 10-20 [facility] Basophil percentageOrdered B y: Nayana Peter on 12-13-2024 Basophils/100 WBC (Bld) 0.8 % 0-1 [facility] Bilirubin, totalOrdered By: Nayana Peter on 12-13-2024 Bilirubin [Mass/Vol] 0.30 mg/dL 0.00-1.30 [facility] CBC W/Diff, Automatedon Absolute Lymph 3.52 X10 3/uL Normal 0.83-4.51 [facility] Comment on above: Performed By: #### L 700.6800, L100.0100, L500.2500 #### [facility] [address] [place], [address] Absolute Neut 5.0 X10 3/uL Normal 2.0-7.7 [facility] Comment on above: Performed By: #### L 700.6800, L100.0100, L500.2500 #### [facility] [address] [place], [address] Basophils/100 WBC (Bld) 0.8 % Normal 0-1 [facility] Comment on above: Performed By: #### L 700.6800, L100.0100, L500.2500 #### [facility] [address] [place], [address] Eosinophils/100 WBC (Bld) 2.0 % Normal 0-5 [facility] Comment on above: Performed By: #### L 700.6800, L100.0100, L500.2500 #### [facility] [address] [place], [address] Erythrocyte distribution width (RBC) [Ratio] 14.0 % Normal 11.6-14.6 [facility] Comment on above: Performed By: #### L 700.6800, L100.0100, L500.2500 #### [facility] [address] [place], [address] Hematocrit (Bld) [Volume fraction] 40.5 % Normal 37-47 [facility] Comment on above: Performed By: #### L 700.6800, L100.0100, L500.2500 #### [facility] [address] [place], [address] Hemoglobin (Bld) [Mass/Vol] 13.2 g/dL Normal 12.0-15.0 [facility] Comment on above: Performed By: #### L 700.6800, L100.0100, L500.2500 #### [facility] [address] [place], [address] IG% 0.800 Normal 0.0-0.9 [facility] Comment on above: Result Comment: IG% - Immature Granulocytes (promyelocytes, myelocytes and metamyelocytes) > 1% indicates that a LEFT SHIFT is Present. Performed By: #### L 700.6800, L100.0100, L500.2500 #### [facility] [address] [place], [address] Lymphocytes/100 WBC (Bld) 36.7 % Normal 19-41 [facility] Comment on above: Performed By: #### L 700.6800, L100.0100, L500.2500 #### [facility] [address] [place], [address] MCH (RBC) [Entitic mass] 27.1 pg Normal 27.0-32.0 [facility] Comment on above: Performed By: #### L 700.6800, L100.0100, L500.2500 #### [facility] [address] [place], [address] MCHC (RBC) [Mass/Vol] 32.6 g/dL Normal 32-36 [facility] Comment on above: Performed By: #### L 700.6800, L100.0100, L500.2500 #### [facility] [address] [place], [address] MCV (RBC) [Entitic vol] 83.2 fL Normal 81-99 [facility] Comment on above: Performed By: #### L 700.6800, L100.0100, L500.2500 #### [facility] [address] [place], [address] Monocytes/100 WBC (Bld) 7.5 % Normal 0-10 [facility] Comment on above: Performed By: #### L 700.6800, L100.0100, L500.2500 #### [facility] [address] [place], [address] Neutrophils/100 WBC (Bld) 52.2 % Normal 47-70 [facility] Comment on above: Performed By: #### L 700.6800, L100.0100, L500.2500 #### [facility] [address] [place], [address] Nucleated RBC (Bld) [#/Vol] 0 10*3/uL Normal 0-5 [facility] Comment on above: Performed By: #### L 700.6800, L100.0100, L500.2500 #### [facility] [address] [place], [address] Platelet mean volume (Bld) [Entitic vol] 10.1 fL Normal 6.2-12.0 [facility] Comment on above: Performed By: #### L 700.6800, L100.0100, L500.2500 #### [facility] [address] [place], [address] Platelets (Bld) [#/Vol] 367 10*3/uL Normal 150-450 [facility] Comment on above: Performed By: #### L 700.6800, L100.0100, L500.2500 #### [facility] [address] [place], [address] RBC (Bld) [#/Vol] 4.87 10*6/uL Normal 4.2-5.4 [facility] Comment on above: Performed By: #### L 700.6800, L100.0100, L500.2500 #### [facility] [address] [place], [address] RDW SD 42.3 fl Normal 35.1-43.9 [facility] Comment on above: Performed By: #### L 700.6800, L100.0100, L500.2500 #### [facility] [address] [place], [address] WBC (Bld) [#/Vol] 9.6 10*3/uL Normal 4.4-11.0 [facility] Comment on above: Performed By: #### L 700.6800, L100.0100, L500.2500 #### [facility] [address] [place], [address] Carbon dioxide, total [Moles /volume] in Central venous bloodOrdered By: Nayana Peter on 12-13-2024 CO2 [Moles/Vol] 26.2 mmol/L 21.0-32.0 [facility] Chloride assayOrdered By: Tiffanie Peter on 12-13-2024 Chloride [Moles/Vol] 99 mmol/L 98-108 [facility] Comprehensive Metabolic Prof ilon 12-13-2024 Albumin [Mass/Vol] 3.8 g/dL Normal 3.5-5.0 [facility] Comment on above: Performed By: #### L 700.6800, L100.0100, L500.2500 #### [facility] [address] [place], [address] Albumin/Globulin [Mass ratio] 1.2 {ratio} Normal 0.9-2.4 [facility] Comment on above: Performed By: #### L 700.6800, L100.0100, L500.2500 #### [facility] [address] [place], [address] ALK PHOS 100 U/L Normal 35-104 [facility] Comment on above: Performed By: #### L 700.6800, L100.0100, L500.2500 #### [facility] [address] [place], [address] ALT [Catalytic activity/Vol] 36 U/L High <=34 [facility] Comment on above: Performed By: #### L 700.6800, L100.0100, L500.2500 #### [facility] [address] [place], [address] AST [Catalytic activity/Vol] 37 U/L High <=31 [facility] Comment on above: Performed By: #### L 700.6800, L100.0100, L500.2500 #### [facility] [address] [place], [address] Bilirubin [Mass/Vol] 0.30 mg/dL Normal 0.00-1.30 [facility] Comment on above: Performed By: #### L 700.6800, L100.0100, L500.2500 #### [facility] [address] [place], [address] BUN/CRE 6.2 RATIO Low 10-20 [facility] Comment on above: Performed By: #### L 700.6800, L100.0100, L500.2500 #### [facility] [address] [place], [address] Calcium [Mass/Vol] 8.8 mg/dL Normal 7.6-11.0 [facility] Comment on above: Performed By: #### L 700.6800, L100.0100, L500.2500 #### [facility] [address] [place], [address] Chloride [Moles/Vol] 99 mmol/L Normal 98-108 [facility] Comment on above: Performed By: #### L 700.6800, L100.0100, L500.2500 #### [facility] [address] [place], [address] CO2 [Moles/Vol] 26.2 mmol/L Normal 21.0-32.0 [facility] Comment on above: Performed By: #### L 700.6800, L100.0100, L500.2500 #### [facility] [address] [place], [address] Creatinine [Mass/Vol] 0.86 mg/dL Normal 0.70-1.20 [facility] Comment on above: Performed By: #### L 700.6800, L100.0100, L500.2500 #### [facility] [address] [place], [address] GAP 13 Normal 5-15 [facility] Comment on above: Performed By: #### L 700.6800, L100.0100, L500.2500 #### [facility] [address] [place], [address] GFR/1.73 sq M.predicted among non-blacks MDRD (S/P/Bld) [Vol rate/Area] 92 mL/min/{1.73_m2} Normal >60 [facility] Comment on above: Result Comment: mL/m in/1.73m2 CKD-EPI Creatinine Equation (2020) Performed By: #### L 700.6800, L100.0100, L500.2500 #### [facility] [address] [place], [address] Globulin (S) [Mass/Vol] 3.3 g/dL Normal 2.2-4.2 [facility] Comment on above: Performed By: #### L 700.6800, L100.0100, L500.2500 #### [facility] [address] [place], [address] Glucose [Mass/Vol] 251 mg/dL High 70-99 [facility] Comment on above: Performed By: #### L 700.6800, L100.0100, L500.2500 #### [facility] [address] [place], [address] Potassium [Moles/Vol] 4.0 mmol/L Normal 3.3-5.1 [facility] Comment on above: Performed By: #### L 700.6800, L100.0100, L500.2500 #### [facility] [address] [place], [address] Sodium [Moles/Vol] 139 mmol/L Normal 133-145 [facility] Comment on above: Performed By: #### L 700.6800, L100.0100, L500.2500 #### [facility] [address] [place], [address] T PROT 7.2 g/dL Normal 5.9-8.4 [facility] Comment on above: Performed By: #### L 700.6800, L100.0100, L500.2500 #### [facility] [address] [place], [address] Urea nitrogen [Mass/Vol] 5 mg/dL Normal 4-19 [facility] Comment on above: Performed By: #### L 700.6800, L100.0100, L500.2500 #### [facility] [address] [place], [address] Eosinophil percentageOrdered By: Nayana Peter on 12-13-2024 Eosinophils/100 WBC (Bld) 2.0 % 0-5 [facility] Erythrocyte distribution wid th ratioOrdered By: Nayana Peter on 12-13-2024 Erythrocyte distribution width (RBC) [Ratio] 14.0 % 11.6-14.6 [facility] Erythrocyte distribution wid th standard deviationOrdered By: Nayana Peter on 12-13-2024 Erythrocyte distribution width (RBC) [Ratio] 42.3 fl 35.1-43.9 [facility] Gastroenterology Visit Repor ton 12-13-2024 Gastroenterology Visit Report [facility] [address] [place] [address] OFFICE VISIT Date of Service: 12/13/24 MR#: [id number] Acct: [id number] Name: GHISLAINE GIVENS Rep #: [id number] : 1990 Provider: MIGUEL A South Age/Sex: 34/F Location: [facility] Status: Signed Intake Vital Signs 11/27/24 [...] 2022 and no prior hx of colonoscopy. [facility] Medical History (Updated 12/06/24 @ 00:00 [...] the office today for establishment with [facility]. [facility] ED 11.25.24 with constipation and abd [...] female pt here today for f/u after [facility] admission. Pt was hospitalize (more content not included)... Normal [facility] Glomerular filtration rate ( GFR) estimation/1.73 sq m using serum, plasma, or whole bOrdered By: Nayana Peter on 12-13-2024 GFR/1.73 sq M.predicted among non-blacks MDRD (S/P/Bld) [Vol rate/Area] 92 mL/min/{1.73_m2} >60 [facility] Comment on above: mL/min/1.73m2 CKD-EP I Creatinine Equation (2020) Hematocrit Auto (Bld) [Volum e fraction]Ordered By: Nayana Peter on 12-13-2024 Hematocrit (Bld) [Volume fraction] 40.5 % 37-47 [facility] Hemoglobin measurementOrdere d By: Nayana Peter on 12-13-2024 Hemoglobin (Bld) [Mass/Vol] 13.2 g/dL 12.0-15.0 [facility] Immature granulocytes/100 WB C Auto (Bld)Ordered By: Nayana Peter on 12-13-2024 Immature granulocytes/100 WBC (Bld) 0.800 % 0.0-0.9 [facility] Comment on above: IG% - Immature Granu locytes (promyelocytes, myelocytes and metamyelocytes) > 1% indicates that a LEFT SHIFT is Present. Laboratory - Chemistry and C hemistry - challengeOrdered By: Nayana Peter on 12-13-2024 AST [Catalytic activity/Vol] 37 U/L High <32 [facility] MCV (mean corpuscular volume ) determinationOrdered By: Nayana Peter on 12-13-2024 MCV (RBC) [Entitic vol] 83.2 fL 81-99 [facility] Mean corpuscular hemoglobin (MCH) determinationOrdered By: Nayana Peter on 12-13-2024 MCH (RBC) [Entitic mass] 27.1 pg 27.0-32.0 [facility] Mean corpuscular hemoglobin concentration (MCHC) determinationOrdered By: Nayana Peter on 12-13-2024 MCHC (RBC) [Mass/Vol] 32.6 g/dL 32-36 [facility] Mean platelet volume determi nationOrdered By: Nayana Peter on 12-13-2024 Platelet mean volume (Bld) [Entitic vol] 10.1 fL 6.2-12.0 [facility] Monocyte percentageOrdered B y: Nayana Peter on 12-13-2024 Monocytes/100 WBC (Bld) 7.5 % 0-10 [facility] Neutrophil percentageOrdered By: Nayana Peter on 12-13-2024 Neutrophils/100 WBC (Bld) 52.2 % 47-70 [facility] Nucleated red blood cell per centageOrdered By: Nayana Peter on 12-13-2024 Nucleated RBC/100 WBC (Bld) [Ratio] 0 % 0-5 [facility] Platelet countOrdered By: Tiffanie Peter on 12-13-2024 Platelets (Bld) [#/Vol] 367 10*3/uL 150-450 [facility] Potassium measurement (mass/ volume)Ordered By: Nayana Peter on 12-13-2024 Potassium (Unsp spec) [Mass/Vol] 4.0 mmol/L 3.3-5.1 [facility] RBC Auto (Bld) [#/Vol]Ordere d By: Nayana Peter on 12-13-2024 RBC (Bld) [#/Vol] 4.87 10*6/uL 4.2-5.4 [facility] Serum creatinine measurement (mass/volume)Ordered By: Nayana Peter on 12-13-2024 Creatinine [Mass/Vol] 0.86 mg/dL 0.70-1.20 [facility] Serum globulin measurementOr dered By: Nayana Peter on 12-13-2024 Globulin (S) [Mass/Vol] 3.3 g/dL 2.2-4.2 [facility] Serum glucose measurement (m ass/volume)Ordered By: Nayana Peter on 12-13-2024 Glucose [Mass/Vol] 251 mg/dL High 70-99 [facility] Serum or plasma alanine jordan otransferase (ALT) measurementOrdered By: Nayana Peter on 12-13-2024 ALT [Catalytic activity/Vol] 36 U/L High <35 [facility] Serum or plasma albumin hussein urement (mass/volume)Ordered By: Nayana Peter on 12-13-2024 Albumin [Mass/Vol] 3.8 g/dL 3.5-5.0 [facility] Serum or plasma albumin/glob ulin mass ratioOrdered By: Nayana Peter on 12-13-2024 Albumin/Globulin [Mass ratio] 1.2 {ratio} 0.9-2.4 [facility] Serum or plasma alkaline bradley sphatase measurementOrdered By: Nayana Peter on 12-13-2024 ALP [Catalytic activity/Vol] 100 U/L 35-104 [facility] Serum or plasma calcium hussein urement (mass/volume)Ordered By: Nayana Peter on 12-13-2024 Calcium [Mass/Vol] 8.8 mg/dL 7.6-11.0 [facility] Serum or plasma urea nitroge n measurement (mass/volume)Ordered By: Nayana Peter on 12-13-2024 Urea nitrogen [Mass/Vol] 5 mg/dL 4-19 [facility] Sodium levelOrdered By: Oh Peter on 12-13-2024 Sodium [Moles/Vol] 139 mmol/L 133-145 [facility] Total proteinOrdered By: Candie Peter on 12-13-2024 Protein [Mass/Vol] 7.2 g/dL 5.9-8.4 [facility] White blood cell (WBC) count Ordered By: Nayana Peter on 12-13-2024 WBC (Bld) [#/Vol] 9.6 10*3/uL 4.4-11.0 [facility] Culture, Blood (WB)on 2024 CUB Blood cultures x2, f rom two different sites No growth in 5 days. Normal [facility] Comment on above: Performed By: #### M 200.1000, L503.6005 #### [facility] [address] [place], [place], [id number] CUB Blood cultures x2, f rom two different sites No growth in 5 days. Normal [facility] Comment on above: Performed By: #### L 700.6800, L100.0100, L500.2500 #### [facility] [address] [place], [place], [id number] Absolute lymphocyte countOrd ered By: Gale Lr on 11-28-2024 Lymphocytes Auto (Unsp spec) [#/Vol] 5.24 10*3/uL High 0.83-4.51 [facility] Absolute neutrophil countOrd ered By: Gale Lr on 11-28-2024 Neutrophils (Bld) [#/Vol] 6.1 10*3/uL 2.0-7.7 [facility] Anion gap in Serum or Plasma Ordered By: Gale Lr on 11-28-2024 Anion gap [Moles/Vol] 12 mmol/L 11-23 [facility] Automated lymphocyte count a s percentage of total leukocytesOrdered By: Gale Lr on 11-28-2024 Lymphocytes/100 WBC Auto (Unsp spec) 43.0 % High [facility] BUN/creatinine ratioOrdered By: Gale Lr on 11-28-2024 Urea nitrogen/Creatinine [Mass ratio] 12.2 mg/mg 04-30 [facility] Basic Metabolic Profile (BMP )on 11-28-2024 BUN Normal -19 [facility] Comment on above: Result Comment: DUPL ICATE Performed By: #### L 500.2500, L100.0100 #### [facility] [address] [place], [address] BUN/CRE Normal - [facility] Comment on above: Result Comment: DUPL ICATE Performed By: #### L 500.2500, L100.0100 #### [facility] [address] [place], [address] Calcium Normal 7.6-11.0 [facility] Comment on above: Result Comment: DUPL ICATE Performed By: #### L 500.2500, L100.0100 #### [facility] [address] [place], [address] CL Normal 98-108 [facility] Comment on above: Result Comment: DUPL ICATE Performed By: #### L 500.2500, L100.0100 #### [facility] [address] [place], [address] CO2 Normal 21.0-32.0 [facility] Comment on above: Result Comment: DUPL ICATE Performed By: #### L 500.2500, L100.0100 #### [facility] [address] [place], [address] CREAT,SERUM Normal 0.70-1.20 [facility] Comment on above: Result Comment: DUPL ICATE Performed By: #### L 500.2500, L100.0100 #### [facility] [address] [place], [address] eGFR Normal >60 [facility] Comment on above: Result Comment: DUPL ICATE Performed By: #### L 500.2500, L100.0100 #### [facility] [address] [place], [address] GAP Normal 5-15 [facility] Comment on above: Result Comment: DUPL ICATE Performed By: #### L 500.2500, L100.0100 #### [facility] [address] [place], [address] GLU Normal 70-99 [facility] Comment on above: Result Comment: DUPL ICATE Performed By: #### L 500.2500, L100.0100 #### [facility] [address] [place], [address] Potassium Normal 3.3-5.1 [facility] Comment on above: Result Comment: DUPL ICATE Performed By: #### L 500.2500, L100.0100 #### [facility] [address] [place], [address] Basic Metabolic Profile (BMP) Normal 133-145 [facility] Comment on above: Result Comment: DUPL ICATE Performed By: #### L 500.2500, L100.0100 #### [facility] [address] [place], [address] BUN/CRE 12.2 RATIO Normal 10-20 [facility] Comment on above: Performed By: #### L 700.6800, L100.0100, L500.2500 #### [facility] [address] [place], [address] Calcium [Mass/Vol] 7.9 mg/dL Normal 7.6-11.0 [facility] Comment on above: Performed By: #### L 700.6800, L100.0100, L500.2500 #### [facility] [address] [place], [address] Chloride [Moles/Vol] 104 mmol/L Normal 98-108 [facility] Comment on above: Performed By: #### L 700.6800, L100.0100, L500.2500 #### [facility] [address] [place], [address] CO2 [Moles/Vol] 24.7 mmol/L Normal 21.0-32.0 [facility] Comment on above: Performed By: #### L 700.6800, L100.0100, L500.2500 #### [facility] [address] [place], [address] Creatinine [Mass/Vol] 1.02 mg/dL Normal 0.70-1.20 [facility] Comment on above: Performed By: #### L 700.6800, L100.0100, L500.2500 #### [facility] [address] [place], [address] ECRCL 99.83 ml/min Normal 50-250 [facility] Comment on above: Performed By: #### L 700.6800, L100.0100, L500.2500 #### [facility] [address] [place], [address] GAP 12 Normal 5-15 [facility] Comment on above: Performed By: #### L 700.6800, L100.0100, L500.2500 #### [facility] [address] [place], [address] GFR/1.73 sq M.predicted among non-blacks MDRD (S/P/Bld) [Vol rate/Area] 75 mL/min/{1.73_m2} Normal >60 [facility] Comment on above: Result Comment: mL/m in/1.73m2 CKD-EPI Creatinine Equation (2020) Performed By: #### L 700.6800, L100.0100, L500.2500 #### [facility] [address] [place], [address] Glucose [Mass/Vol] 134 mg/dL High 70-99 [facility] Comment on above: Performed By: #### L 700.6800, L100.0100, L500.2500 #### [facility] [address] [place], [address] Potassium [Moles/Vol] 3.5 mmol/L Normal 3.3-5.1 [facility] Comment on above: Performed By: #### L 700.6800, L100.0100, L500.2500 #### [facility] [address] [place], [address] Sodium [Moles/Vol] 141 mmol/L Normal 133-145 [facility] Comment on above: Performed By: #### L 700.6800, L100.0100, L500.2500 #### [facility] [address] [place], [address] Urea nitrogen [Mass/Vol] 12 mg/dL Normal 4-19 [facility] Comment on above: Performed By: #### L 700.6800, L100.0100, L500.2500 #### [facility] [address] [place], [address] Basophil percentageOrdered B y: Gale Lr on 11-28-2024 Basophils/100 WBC (Bld) 0.6 % 0-1 [facility] Bedside Glucoseon 11-28-2024 [place]ICK GLU 127 mg/dL High 74-106 [facility] Comment on above: Result Comment: BULL SAMAYOA OF PATIENT CARE PER NURSING PROTOCOL Performed By: #### L 501.080 #### [facility] [address] [place], [address] CBC W/Diff, Automatedon 11-10 Absolute Neut Normal 2.0-7.7 [facility] Comment on above: Result Comment: DUPL ICATE Performed By: #### L 500.2500, L100.0100 #### [facility] [address] [place], [address] HCT Normal 37-47 [facility] Comment on above: Result Comment: DUPL ICATE Performed By: #### L 500.2500, L100.0100 #### [facility] [address] [place], [address] HGB Normal 12.0-15.0 [facility] Comment on above: Result Comment: DUPL ICATE Performed By: #### L 500.2500, L100.0100 #### [facility] [address] [place], [address] MCH Normal 27.0-32.0 [facility] Comment on above: Result Comment: DUPL ICATE Performed By: #### L 500.2500, L100.0100 #### [facility] [address] [place], [address] MCHC Normal 32-36 [facility] Comment on above: Result Comment: DUPL ICATE Performed By: #### L 500.2500, L100.0100 #### [facility] [address] [place], [address] MCV Normal 81-99 [facility] Comment on above: Result Comment: DUPL ICATE Performed By: #### L 500.2500, L100.0100 #### [facility] [address] [place], [address] NEUT% Normal 47-70 [facility] Comment on above: Result Comment: DUPL ICATE Performed By: #### L 500.2500, L100.0100 #### [facility] [address] [place], [address] PLT Normal 150-450 [facility] Comment on above: Result Comment: DUPL ICATE Performed By: #### L 500.2500, L100.0100 #### [facility] [address] [place], [address] RBC Normal 4.2-5.4 [facility] Comment on above: Result Comment: DUPL ICATE Performed By: #### L 500.2500, L100.0100 #### [facility] [address] [place], [address] RDW CV Normal 11.6-14.6 [facility] Comment on above: Result Comment: DUPL ICATE Performed By: #### L 500.2500, L100.0100 #### [facility] [address] [place], [address] RDW SD Normal 35.1-43.9 [facility] Comment on above: Result Comment: DUPL ICATE Performed By: #### L 500.2500, L100.0100 #### [facility] [address] [place], [address] WBC Normal 4.4-11.0 [facility] Comment on above: Result Comment: DUPL ICATE Performed By: #### L 500.2500, L100.0100 #### [facility] [address] [place], [address] Absolute Lymph 5.24 X10 3/uL High 0.83-4.51 [facility] Comment on above: Performed By: #### L 700.6800, L100.0100, L500.2500 #### [facility] [address] [place], [address] Absolute Neut 6.1 X10 3/uL Normal 2.0-7.7 [facility] Comment on above: Performed By: #### L 700.6800, L100.0100, L500.2500 #### [facility] [address] [place], [address] Basophils/100 WBC (Bld) 0.6 % Normal 0-1 [facility] Comment on above: Performed By: #### L 700.6800, L100.0100, L500.2500 #### [facility] [address] [place], [address] Eosinophils/100 WBC (Bld) 0.5 % Normal 0-5 [facility] Comment on above: Performed By: #### L 700.6800, L100.0100, L500.2500 #### [facility] [address] [place], [address] Erythrocyte distribution width (RBC) [Ratio] 13.7 % Normal 11.6-14.6 [facility] Comment on above: Performed By: #### L 700.6800, L100.0100, L500.2500 #### [facility] [address] [place], [address] Hematocrit (Bld) [Volume fraction] 37.0 % Normal 37-47 [facility] Comment on above: Performed By: #### L 700.6800, L100.0100, L500.2500 #### [facility] [address] [place], [address] Hemoglobin (Bld) [Mass/Vol] 12.1 g/dL Normal 12.0-15.0 [facility] Comment on above: Performed By: #### L 700.6800, L100.0100, L500.2500 #### [facility] [address] [place], [address] IG% 0.800 Normal 0.0-0.9 [facility] Comment on above: Result Comment: IG% - Immature Granulocytes (promyelocytes, myelocytes and metamyelocytes) > 1% indicates that a LEFT SHIFT is Present. Performed By: #### L 700.6800, L100.0100, L500.2500 #### [facility] [address] [place], [address] Lymphocytes/100 WBC (Bld) 43.0 % High 19-41 [facility] Comment on above: Performed By: #### L 700.6800, L100.0100, L500.2500 #### [facility] [address] [place], [address] MCH (RBC) [Entitic mass] 27.3 pg Normal 27.0-32.0 [facility] Comment on above: Performed By: #### L 700.6800, L100.0100, L500.2500 #### [facility] [address] [place], [address] MCHC (RBC) [Mass/Vol] 32.7 g/dL Normal 32-36 [facility] Comment on above: Performed By: #### L 700.6800, L100.0100, L500.2500 #### [facility] [address] [place], [address] MCV (RBC) [Entitic vol] 83.3 fL Normal 81-99 [facility] Comment on above: Performed By: #### L 700.6800, L100.0100, L500.2500 #### [facility] [address] [place], [address] Monocytes/100 WBC (Bld) 5.3 % Normal 0-10 [facility] Comment on above: Performed By: #### L 700.6800, L100.0100, L500.2500 #### [facility] [address] [place], [address] Neutrophils/100 WBC (Bld) 49.8 % Normal 47-70 [facility] Comment on above: Performed By: #### L 700.6800, L100.0100, L500.2500 #### [facility] [address] [place], [address] Nucleated RBC (Bld) [#/Vol] 0 10*3/uL Normal 0-5 [facility] Comment on above: Performed By: #### L 700.6800, L100.0100, L500.2500 #### [facility] [address] [place], [address] Platelet mean volume (Bld) [Entitic vol] 9.3 fL Normal 6.2-12.0 [facility] Comment on above: Performed By: #### L 700.6800, L100.0100, L500.2500 #### [facility] [address] [place], [address] Platelets (Bld) [#/Vol] 400 10*3/uL Normal 150-450 [facility] Comment on above: Performed By: #### L 700.6800, L100.0100, L500.2500 #### [facility] [address] [place], [address] RBC (Bld) [#/Vol] 4.44 10*6/uL Normal 4.2-5.4 [facility] Comment on above: Performed By: #### L 700.6800, L100.0100, L500.2500 #### [facility] [address] [place], [address] RDW SD 41.8 fl Normal 35.1-43.9 [facility] Comment on above: Performed By: #### L 700.6800, L100.0100, L500.2500 #### [facility] [address] [place], [address] WBC (Bld) [#/Vol] 12.2 10*3/uL High 4.4-11.0 [facility] Comment on above: Performed By: #### L 700.6800, L100.0100, L500.2500 #### [facility] [address] [place], [address] Carbon dioxide, total [Moles /volume] in Central venous bloodOrdered By: Gale Lr on 11-28-2024 CO2 [Moles/Vol] 24.7 mmol/L 21.0-32.0 [facility] Chloride assayOrdered By: Sun Lr on 11-28-2024 Chloride [Moles/Vol] 104 mmol/L 98-108 [facility] Eosinophil percentageOrdered By: Gale Lr on 11-28-2024 Eosinophils/100 WBC (Bld) 0.5 % 0-5 [facility] Erythrocyte distribution wid th ratioOrdered By: Gale Lr on 11-28-2024 Erythrocyte distribution width (RBC) [Ratio] 13.7 % 11.6-14.6 [facility] Erythrocyte distribution wid th standard deviationOrdered By: Gale Lr on 11-28-2024 Erythrocyte distribution width (RBC) [Ratio] 41.8 fl 35.1-43.9 [facility] Glomerular filtration rate ( GFR) estimation/1.73 sq m using serum, plasma, or whole bOrdered By: Gale Lr on 11-28-2024 GFR/1.73 sq M.predicted among non-blacks MDRD (S/P/Bld) [Vol rate/Area] 75 mL/min/{1.73_m2} >60 [facility] Comment on above: mL/min/1.73m2 CKD-EP I Creatinine Equation (2020) [facility] deOrdered By: Gale Lr on 11-28-2024 Glucose [Mass/Vol] 127 mg/dL High 74-106 [facility] Comment on above: MANAGEMENT OF PATIEN T CARE PER NURSING PROTOCOL Hematocrit Auto (Bld) [Volum e fraction]Ordered By: Gale Lr on 11-28-2024 Hematocrit (Bld) [Volume fraction] 37.0 % 37-47 [facility] Hemoglobin measurementOrdere d By: Gale Lr on 11-28-2024 Hemoglobin (Bld) [Mass/Vol] 12.1 g/dL 12.0-15.0 [facility] Immature granulocytes/100 WB C Auto (Bld)Ordered By: Gale Lr on 11-28-2024 Immature granulocytes/100 WBC (Bld) 0.800 % 0.0-0.9 [facility] Comment on above: IG% - Immature Granu locytes (promyelocytes, myelocytes and metamyelocytes) > 1% indicates that a LEFT SHIFT is Present. MCV (mean corpuscular volume ) determinationOrdered By: Gale Lr on 11-28-2024 MCV (RBC) [Entitic vol] 83.3 fL 81-99 [facility] Mean corpuscular hemoglobin (MCH) determinationOrdered By: Gale Lr on 11-28-2024 MCH (RBC) [Entitic mass] 27.3 pg 27.0-32.0 [facility] Mean corpuscular hemoglobin concentration (MCHC) determinationOrdered By: Gale Lr on 11-28-2024 MCHC (RBC) [Mass/Vol] 32.7 g/dL 32-36 [facility] Mean platelet volume determi nationOrdered By: Gale Lr on 11-28-2024 Platelet mean volume (Bld) [Entitic vol] 9.3 fL 6.2-12.0 [facility] Monocyte percentageOrdered B y: Gale Lr on 11-28-2024 Monocytes/100 WBC (Bld) 5.3 % 0-10 [facility] Neutrophil percentageOrdered By: Gale Lr on 11-28-2024 Neutrophils/100 WBC (Bld) 49.8 % 47-70 [facility] Nucleated red blood cell per centageOrdered By: Gale Lr on 11-28-2024 Nucleated RBC/100 WBC (Bld) [Ratio] 0 % 0-5 [facility] Platelet countOrdered By: Sun Lr on 11-28-2024 Platelets (Bld) [#/Vol] 400 10*3/uL 150-450 [facility] Potassium measurement (mass/ volume)Ordered By: Gale Lr on 11-28-2024 Potassium (Unsp spec) [Mass/Vol] 3.5 mmol/L 3.3-5.1 [facility] RBC Auto (Bld) [#/Vol]Ordere d By: Gale Lr on 11-28-2024 RBC (Bld) [#/Vol] 4.44 10*6/uL 4.2-5.4 [facility] Serum creatinine measurement (mass/volume)Ordered By: Gale Lr on 11-28-2024 Creatinine [Mass/Vol] 1.02 mg/dL 0.70-1.20 [facility] Serum glucose measurement (m ass/volume)Ordered By: Gale Lr on 11-28-2024 Glucose [Mass/Vol] 134 mg/dL High 70-99 [facility] Serum or plasma calcium hussein urement (mass/volume)Ordered By: Gale Lr on 11-28-2024 Calcium [Mass/Vol] 7.9 mg/dL 7.6-11.0 [facility] Serum or plasma urea nitroge n measurement (mass/volume)Ordered By: Gale Lr on 11-28-2024 Urea nitrogen [Mass/Vol] 12 mg/dL 4-19 [facility] Sodium levelOrdered By: Argelia Lr on 11-28-2024 Sodium [Moles/Vol] 141 mmol/L 133-145 [facility] White blood cell (WBC) count Ordered By: Gale Lr on 11-28-2024 WBC (Bld) [#/Vol] 12.2 10*3/uL High 4.4-11.0 [facility] Abdomen/Pelvis WITH Contrast on 11-27-2024 Abdomen/Pelvis WITH Contrast [facility] Services [address] [place], [place] [address] (568) Abdomen/Pelvis WITH Contrast MR#: [id number] Acct: [id number] Name: GHISLAINE GIVENS Rep #: [id number] : 1990 F 34 From: Bernard ruelas MD PCP: Amy Solorzano, [place], JOB LITHOGRAPHER-C Status: ADM IN Study: Abdomen/Pelvis WITH Contrast Date of Exam: Exam# [id number] Ordering Dr: Clare Loo-Sara PROCEDURE: ABDOMEN/PELVIS WITH [...] as compared to prior study. [facility]: ESCOBAR Loo; [facility] JOB LITHOGRAPHERPanC Amy Solorzano Neurology Stroke Physician: Signed Normal [facility] Basic Metabolic Profile (BMP )on 11-27-2024 BUN/CRE 15.0 RATIO Normal 10-20 [facility] Comment on above: Performed By: #### L 500.2500, L100.0100 #### [facility] [address] [place], [address] Calcium [Mass/Vol] 7.9 mg/dL Normal 7.6-11.0 [facility] Comment on above: Performed By: #### L 500.2500, L100.0100 #### [facility] [address] [place], [address] Chloride [Moles/Vol] 102 mmol/L Normal 98-108 [facility] Comment on above: Performed By: #### L 500.2500, L100.0100 #### [facility] [address] [place], [address] CO2 [Moles/Vol] 24.2 mmol/L Normal 21.0-32.0 [facility] Comment on above: Performed By: #### L 500.2500, L100.0100 #### [facility] [address] [place], [address] Creatinine [Mass/Vol] 1.07 mg/dL Normal 0.70-1.20 [facility] Comment on above: Performed By: #### L 500.2500, L100.0100 #### [facility] [address] [place], [address] ECRCL 95.16 ml/min Normal 50-250 [facility] Comment on above: Performed By: #### L 500.2500, L100.0100 #### [facility] [address] [place], [address] GAP 13 Normal 5-15 [facility] Comment on above: Performed By: #### L 500.2500, L100.0100 #### [facility] [address] [place], [address] GFR/1.73 sq M.predicted among non-blacks MDRD (S/P/Bld) [Vol rate/Area] 71 mL/min/{1.73_m2} Normal >60 [facility] Comment on above: Result Comment: mL/m in/1.73m2 CKD-EPI Creatinine Equation (2020) Performed By: #### L 500.2500, L100.0100 #### [facility] [address] [place], [address] Glucose [Mass/Vol] 217 mg/dL High 70-99 [facility] Comment on above: Performed By: #### L 500.2500, L100.0100 #### [facility] [address] [place], [address] Potassium [Moles/Vol] 4.1 mmol/L Normal 3.3-5.1 [facility] Comment on above: Performed By: #### L 500.2500, L100.0100 #### [facility] [address] [place], [address] Sodium [Moles/Vol] 139 mmol/L Normal 133-145 [facility] Comment on above: Performed By: #### L 500.2500, L100.0100 #### [facility] [address] [place], [address] Urea nitrogen [Mass/Vol] 16 mg/dL Normal 4-19 [facility] Comment on above: Performed By: #### L 500.2500, L100.0100 #### [facility] [address] [place], [address] Bedside Glucoseon 11-27-2024 FINGERSTICK GLU 175 mg/dL High 74-106 [facility] Comment on above: Result Comment: BULL SAMAYOA OF PATIENT CARE PER NURSING PROTOCOL Performed By: #### L 500.2500, L100.0100 #### [facility] [address] [place], [address] FINGERSTICK GLU 147 mg/dL High 74-106 [facility] Comment on above: Result Comment: BULL GEMENT OF PATIENT CARE PER NURSING PROTOCOL Performed By: #### L 500.2500, L100.0100 #### [facility] [address] [place], [address] FINGERSTICK GLU 197 mg/dL High 74-106 [facility] Comment on above: Result Comment: BULL GEMENT OF PATIENT CARE PER NURSING PROTOCOL Performed By: #### L 500.2500, L100.0100 #### [facility] [address] [place], [address] FINGERSTICK GLU 185 mg/dL High -106 [facility] Comment on above: Result Comment: BULL GEMENT OF PATIENT CARE PER NURSING PROTOCOL Performed By: #### L 500.2500, L100.0100 #### [facility] [address] [place], [address] Bilirubin directOrdered By: Gale Lr on 11-27-2024 Bilirubin.direct [Mass/Vol] 0.14 mg/dL 0.00-0.30 [facility] Bilirubin, totalOrdered By: Gale Lr on 11-27-2024 Bilirubin [Mass/Vol] 0.35 mg/dL 0.00-1.30 [facility] CBC W/Diff, Automatedon 11-09 Absolute Lymph 2.31 X10 3/uL Normal 0.83-4.51 [facility] Comment on above: Performed By: #### L 500.2500, L100.0100 #### [facility] [address] [place], [address] Absolute Neut 9.7 X10 3/uL High 2.0-7.7 [facility] Comment on above: Performed By: #### L 500.2500, L100.0100 #### [facility] [address] [place], [address] Basophils/100 WBC (Bld) 0.2 % Normal 0-1 [facility] Comment on above: Performed By: #### L 500.2500, L100.0100 #### [facility] [address] [place], [address] Eosinophils/100 WBC (Bld) 0.0 % Normal 0-5 [facility] Comment on above: Performed By: #### L 500.2500, L100.0100 #### [facility] [address] [place], [address] Erythrocyte distribution width (RBC) [Ratio] 13.8 % Normal 11.6-14.6 [facility] Comment on above: Performed By: #### L 500.2500, L100.0100 #### [facility] [address] [place], [address] Hematocrit (Bld) [Volume fraction] 34.7 % Low 37-47 [facility] Comment on above: Performed By: #### L 500.2500, L100.0100 #### [facility] [address] [place], [address] Hemoglobin (Bld) [Mass/Vol] 11.3 g/dL Low 12.0-15.0 [facility] Comment on above: Performed By: #### L 500.2500, L100.0100 #### [facility] [address] [place], [address] IG% 0.600 Normal 0.0-0.9 [facility] Comment on above: Result Comment: IG% - Immature Granulocytes (promyelocytes, myelocytes and metamyelocytes) > 1% indicates that a LEFT SHIFT is Present. Performed By: #### L 500.2500, L100.0100 #### [facility] [address] [place], [address] Lymphocytes/100 WBC (Bld) 18.1 % Low 19-41 [facility] Comment on above: Performed By: #### L 500.2500, L100.0100 #### [facility] [address] [place], [address] MCH (RBC) [Entitic mass] 27.0 pg Normal 27.0-32.0 [facility] Comment on above: Performed By: #### L 500.2500, L100.0100 #### [facility] [address] [place], [address] MCHC (RBC) [Mass/Vol] 32.6 g/dL Normal 32-36 [facility] Comment on above: Performed By: #### L 500.2500, L100.0100 #### [facility] [address] [place], [address] MCV (RBC) [Entitic vol] 83.0 fL Normal 81-99 [facility] Comment on above: Performed By: #### L 500.2500, L100.0100 #### [facility] [address] [place], [address] Monocytes/100 WBC (Bld) 5.2 % Normal 0-10 [facility] Comment on above: Performed By: #### L 500.2500, L100.0100 #### [facility] [address] [place], [address] Neutrophils/100 WBC (Bld) 75.9 % High 47-70 [facility] Comment on above: Performed By: #### L 500.2500, L100.0100 #### [facility] [address] [place], [address] Nucleated RBC (Bld) [#/Vol] 0 10*3/uL Normal 0-5 [facility] Comment on above: Performed By: #### L 500.2500, L100.0100 #### [facility] [address] [place], [address] Platelet mean volume (Bld) [Entitic vol] 9.6 fL Normal 6.2-12.0 [facility] Comment on above: Performed By: #### L 500.2500, L100.0100 #### [facility] [address] [place], [address] Platelets (Bld) [#/Vol] 354 10*3/uL Normal 150-450 [facility] Comment on above: Performed By: #### L 500.2500, L100.0100 #### [facility] [address] [place], [address] RBC (Bld) [#/Vol] 4.18 10*6/uL Low 4.2-5.4 [facility] Comment on above: Performed By: #### L 500.2500, L100.0100 #### [facility] [address] [place], [address] RDW SD 42.2 fl Normal 35.1-43.9 [facility] Comment on above: Performed By: #### L 500.2500, L100.0100 #### [facility] [address] [place], [address] WBC (Bld) [#/Vol] 12.8 10*3/uL High 4.4-11.0 [facility] Comment on above: Performed By: #### L 500.2500, L100.0100 #### [facility] [address] [place], [address] Laboratory - Chemistry and C hemistry - challengeOrdered By: Gale Lr on 11-27-2024 AST [Catalytic activity/Vol] 21 U/L <32 [facility] Liver Profileon 11-27-2024 Albumin [Mass/Vol] 3.5 g/dL Normal 3.5-5.0 [facility] Comment on above: Performed By: #### L 500.3400 #### [facility] [address] [place], [address] ALK PHOS 88 U/L Normal 35-104 [facility] Comment on above: Performed By: #### L 500.3400 #### [facility] [address] [place], [address] ALT [Catalytic activity/Vol] 12 U/L Normal <=34 [facility] Comment on above: Performed By: #### L 500.3400 #### [facility] [address] [place], [address] AST [Catalytic activity/Vol] 21 U/L Normal <=31 [facility] Comment on above: Performed By: #### L 500.3400 #### [facility] [address] [place], [address] Bilirubin [Mass/Vol] 0.35 mg/dL Normal 0.00-1.30 [facility] Comment on above: Performed By: #### L 500.3400 #### [facility] [address] [place], [address] Bilirubin.direct [Mass/Vol] 0.14 mg/dL Normal 0.00-0.30 [facility] Comment on above: Performed By: #### L 500.3400 #### [facility] [address] [place], [address] Globulin (S) [Mass/Vol] 3.6 g/dL Normal 2.2-4.2 [facility] Comment on above: Performed By: #### L 500.3400 #### [facility] [address] [place], [address] T PROT 7.1 g/dL Normal 5.9-8.4 [facility] Comment on above: Performed By: #### L 500.3400 #### [facility] [address] [place], [address] Serum globulin measurementOr dered By: Gale Lr on 11-27-2024 Globulin (S) [Mass/Vol] 3.6 g/dL 2.2-4.2 [facility] Serum or plasma alanine jordan otransferase (ALT) measurementOrdered By: Gale Lr on 11-27-2024 ALT [Catalytic activity/Vol] 12 U/L <35 [facility] Serum or plasma albumin hussein urement (mass/volume)Ordered By: Gale Lr on 11-27-2024 Albumin [Mass/Vol] 3.5 g/dL 3.5-5.0 [facility] Serum or plasma alkaline bradley sphatase measurementOrdered By: Gale Lr on 11-27-2024 ALP [Catalytic activity/Vol] 88 U/L 35-104 [facility] Total proteinOrdered By: Sugar Lr on 11-27-2024 Protein [Mass/Vol] 7.1 g/dL 5.9-8.4 [facility] Abdomen Single Viewon 2024 Abdomen Single View [facility] Imaging Services [address] [place] [id number] Abdomen Single View MR#: [id number] Acct: [id number] Name: GHISLAINE GIVENS Rep #: [id number] : 1990 F 34 From: Frantz Barfield MD PCP: Amy Solorzano [facility], JOB LITHOGRAPHER-C Status: ADM IN Study: Abdomen Single View Date of Exam: 11/26/24 Exam# [id number] Ordering Dr: Annalise Welch MD EXAM: XR Abdomen, 1 View CLINICAL INDICATION: FECAL IMPACTION-RECTUM TECHNIQUE: Frontal supine view of the abdomen/pelvis. COMPARISON: No relevant prior studies available. FINDINGS: GASTROINTESTINAL TRACT: Constipation with suggestion of fecal impaction of the rectum. No dilation. BONES/JOINTS: Unremarkable. No acute fracture. RAD/Abdomen Single View IMPRESSION: Constipation with suggestion of fecal impaction of the rectum. Reading Location: [id number] CC: [facility] JOB LITHOGRAPHER-C Amy Solorzano; Dr. Annalise Welch MD Neurology Stroke Physician: Signed Normal [facility] Basic Metabolic Profile (BMP )on 11-26-2024 BUN/CRE 15.0 RATIO Normal 10-20 [facility] Comment on above: Performed By: #### L 500.3400 #### [facility] [address] [place], [address] Calcium [Mass/Vol] 7.8 mg/dL Normal 7.6-11.0 [facility] Comment on above: Performed By: #### L 500.3400 #### [facility] [address] [place], [address] Chloride [Moles/Vol] 104 mmol/L Normal 98-108 [facility] Comment on above: Performed By: #### L 500.3400 #### [facility] [address] [place], [address] CO2 [Moles/Vol] 22.6 mmol/L Normal 21.0-32.0 [facility] Comment on above: Performed By: #### L 500.3400 #### [facility] [address] [place], [address] Creatinine [Mass/Vol] 1.16 mg/dL Normal 0.70-1.20 [facility] Comment on above: Performed By: #### L 500.3400 #### [facility] [address] [place], [address] ECRCL 87.78 ml/min Normal 50-250 [facility] Comment on above: Performed By: #### L 500.3400 #### [facility] [address] [place], [address] GAP 11 Normal 5-15 [facility] Comment on above: Performed By: #### L 500.3400 #### [facility] [address] [place], [address] GFR/1.73 sq M.predicted among non-blacks MDRD (S/P/Bld) [Vol rate/Area] 64 mL/min/{1.73_m2} Normal >60 [facility] Comment on above: Result Comment: mL/m in/1.73m2 CKD-EPI Creatinine Equation (2020) Performed By: #### L 500.3400 #### [facility] [address] [place], [address] Glucose [Mass/Vol] 148 mg/dL High 70-99 [facility] Comment on above: Performed By: #### L 500.3400 #### [facility] [address] [place], [address] Potassium [Moles/Vol] 4.0 mmol/L Normal 3.3-5.1 [facility] Comment on above: Performed By: #### L 500.3400 #### [facility] [address] [place], [address] Sodium [Moles/Vol] 137 mmol/L Normal 133-145 [facility] Comment on above: Performed By: #### L 500.3400 #### [facility] [address] [place], [address] Urea nitrogen [Mass/Vol] 17 mg/dL Normal 4-19 [facility] Comment on above: Performed By: #### L 500.3400 #### [facility] [address] [place], [address] Bedside Glucoseon 11-26-2024 FINGERSTICK GLU 185 mg/dL High 74-106 [facility] Comment on above: Result Comment: BULL GEMENT OF PATIENT CARE PER NURSING PROTOCOL Performed By: #### L 501.080 #### [facility] [address] [place], [address] FINGERSTICK GLU 218 mg/dL High 74-106 [facility] Comment on above: Result Comment: BULL GEMENT OF PATIENT CARE PER NURSING PROTOCOL Performed By: #### L 700.6800, L100.0100, L500.2500 #### [facility] [address] [place], [address] FINGERSTICK GLU 202 mg/dL High 74-106 [facility] Comment on above: Result Comment: BULL GEMENT OF PATIENT CARE PER NURSING PROTOCOL Performed By: #### L 500.2500, L100.0100 #### [facility] [address] [place], [address] FINGERSTICK GLU 160 mg/dL High 74-106 [facility] Comment on above: Result Comment: BULL GEMENT OF PATIENT CARE PER NURSING PROTOCOL Performed By: #### L 700.6800, L100.0100, L500.2500 #### [facility] [address] [place], [address] FINGERSTICK GLU 166 mg/dL High 74-106 [facility] Comment on above: Result Comment: BULL GEMENT OF PATIENT CARE PER NURSING PROTOCOL Performed By: #### L 500.2500, L100.0100 #### [facility] [address] [place], [address] CBC W/Diff, Automatedon 05-1 Absolute Lymph 3.42 X10 3/uL Normal 0.83-4.51 [facility] Comment on above: Performed By: #### L 500.2500, L100.0100 #### [facility] [address] [place], [address] Absolute Neut 12.9 X10 3/uL High 2.0-7.7 [facility] Comment on above: Performed By: #### L 500.2500, L100.0100 #### [facility] [address] [place], [address] Basophils/100 WBC (Bld) 0.2 % Normal 0-1 [facility] Comment on above: Performed By: #### L 500.2500, L100.0100 #### [facility] [address] [place], [address] Eosinophils/100 WBC (Bld) 0.2 % Normal 0-5 [facility] Comment on above: Performed By: #### L 500.2500, L100.0100 #### [facility] [address] [place], [address] Erythrocyte distribution width (RBC) [Ratio] 13.9 % Normal 11.6-14.6 [facility] Comment on above: Performed By: #### L 500.2500, L100.0100 #### [facility] [address] [place], [address] Hematocrit (Bld) [Volume fraction] 34.2 % Low 37-47 [facility] Comment on above: Performed By: #### L 500.2500, L100.0100 #### [facility] [address] [place], [address] Hemoglobin (Bld) [Mass/Vol] 11.0 g/dL Low 12.0-15.0 [facility] Comment on above: Performed By: #### L 500.2500, L100.0100 #### [facility] [address] [place], [address] IG% 0.600 Normal 0.0-0.9 [facility] Comment on above: Result Comment: IG% - Immature Granulocytes (promyelocytes, myelocytes and metamyelocytes) > 1% indicates that a LEFT SHIFT is Present. Performed By: #### L 500.2500, L100.0100 #### [facility] [address] [place], [address] Lymphocytes/100 WBC (Bld) 19.4 % Normal 19-41 [facility] Comment on above: Performed By: #### L 500.2500, L100.0100 #### [facility] [address] [place], [address] MCH (RBC) [Entitic mass] 27.0 pg Normal 27.0-32.0 [facility] Comment on above: Performed By: #### L 500.2500, L100.0100 #### [facility] [address] [place], [address] MCHC (RBC) [Mass/Vol] 32.2 g/dL Normal 32-36 [facility] Comment on above: Performed By: #### L 500.2500, L100.0100 #### [facility] [address] [place], [address] MCV (RBC) [Entitic vol] 83.8 fL Normal 81-99 [facility] Comment on above: Performed By: #### L 500.2500, L100.0100 #### [facility] [address] [place], [address] Monocytes/100 WBC (Bld) 6.2 % Normal 0-10 [facility] Comment on above: Performed By: #### L 500.2500, L100.0100 #### [facility] [address] [place], [address] Neutrophils/100 WBC (Bld) 73.4 % High 47-70 [facility] Comment on above: Performed By: #### L 500.2500, L100.0100 #### [facility] [address] [place], [address] Nucleated RBC (Bld) [#/Vol] 0 10*3/uL Normal 0-5 [facility] Comment on above: Performed By: #### L 500.2500, L100.0100 #### [facility] [address] [place], [address] Platelet mean volume (Bld) [Entitic vol] 9.8 fL Normal 6.2-12.0 [facility] Comment on above: Performed By: #### L 500.2500, L100.0100 #### [facility] [address] [place], [address] Platelets (Bld) [#/Vol] 308 10*3/uL Normal 150-450 [facility] Comment on above: Performed By: #### L 500.2500, L100.0100 #### [facility] [address] [place], [address] RBC (Bld) [#/Vol] 4.08 10*6/uL Low 4.2-5.4 [facility] Comment on above: Performed By: #### L 500.2500, L100.0100 #### [facility] [address] [place], [address] RDW SD 43.0 fl Normal 35.1-43.9 [facility] Comment on above: Performed By: #### L 500.2500, L100.0100 #### [facility] [address] [place], [address] WBC (Bld) [#/Vol] 17.6 10*3/uL High 4.4-11.0 [facility] Comment on above: Performed By: #### L 500.2500, L100.0100 #### [facility] [address] [place], [address] Abdomen/Pelvis W IV Cont ONL Yon 11-25-2024 Abdomen/Pelvis W IV Cont ONLY [facility] Services [address] [place] [address] Abdomen/Pelvis W IV Cont ONLY MR#: [id number] Acct: [id number] Name: GHISLAINE GIVENS Rep #: [id number] : 1990 F 34 From: Frantz Barfield MD PCP: Amy Solorzano Sara, JOB LITHOGRAPHER-C Status: [facility] ER Study: Abdomen/Pelvis W IV Cont ONLY Date of Exam: Exam# [id number] Ordering Dr: Drew Hinson MD EXAM: CT [...] 2. Hepatomegaly with fatty infiltration. Reading Location: [facility] CC: [facility] JOB LITHOGRAPHER-Sara Solorzano; Dr. Drew Hinson MD Neurology Stroke Physician: Signed Normal [facility] Absolute lymphocyte countOrd ered By: Drew Hinson on 11-25-2024 Lymphocytes Auto (Unsp spec) [#/Vol] 3.09 10*3/uL 0.83-4.51 [facility] Absolute neutrophil countOrd ered By: Drew Hinson on 11-25-2024 Neutrophils (Bld) [#/Vol] 21.5 10*3/uL High 2.0-7.7 [facility] Imaging Services [address] [place] [address] Acute [facility]domen [facility] Chest MR#: [id number] Acct: [id number] Name: GHISLAINE GIVENS Rep #: [id number] : 1990 F 34 From: Frantz Barfield MD PCP: Amy Solorzano, [facility], JOB LITHOGRAPHER-C Status: REG ER Study: Acute Abdomen Inc Chest Date of Exam: 11/25/24 Exam# [id number] Ordering Dr: Drew Hinson MD EXAM: XR [...] the colon consistent with constipation. Reading Location: [id number] CC: [facility] JOB LITHOGRAPHER-C Amy Solorzano; Dr. Drew Hinson MD Neurology Stroke Physician: Signed Normal [facility] Amorphous sediment detection in urine sediment by light microscopyOrdered By: Drew Hinson on 11-25-2024 Amorphous sediment LM Ql (Urine sed) 2+ URATE [facility] Anion gap in Serum or Plasma Ordered By: Drew Hinson on 11-25-2024 Anion gap [Moles/Vol] 17 mmol/L High 5-15 [facility] Automated lymphocyte count a s percentage of total leukocytesOrdered By: Drew Hinson on 11-25-2024 Lymphocytes/100 WBC Auto (Unsp spec) 11.4 % Low 19-41 [facility] BUN/creatinine ratioOrdered By: Drew Hinson on 11-25-2024 Urea nitrogen/Creatinine [Mass ratio] 15.9 mg/mg 04-30 [facility] Basic Metabolic Profile (BMP )on 11-25-2024 BUN/CRE 15.9 RATIO Normal 04-30 [facility] Comment on above: Performed By: #### L 700.6800, L100.0100, L500.2500 #### [facility] [address] [place], [address] Calcium [Mass/Vol] 9.6 mg/dL Normal 7.6-11.0 [facility] Comment on above: Performed By: #### L 700.6800, L100.0100, L500.2500 #### [facility] [address] [place], [address] Chloride [Moles/Vol] 97 mmol/L Low 98-108 [facility] Comment on above: Performed By: #### L 700.6800, L100.0100, L500.2500 #### [facility] [address] [place], [address] CO2 [Moles/Vol] 21.3 mmol/L Normal 21.0-32.0 [facility] Comment on above: Performed By: #### L 700.6800, L100.0100, L500.2500 #### [facility] [address] [place], [address] Creatinine [Mass/Vol] 1.20 mg/dL Normal 0.70-1.20 [facility] Comment on above: Performed By: #### L 700.6800, L100.0100, L500.2500 #### [facility] [address] [place], [address] ECRCL 86.69 ml/min Normal 50-250 [facility] Comment on above: Performed By: #### L 700.6800, L100.0100, L500.2500 #### [facility] [address] [place], [address] GAP 17 High 5-15 [facility] Comment on above: Performed By: #### L 700.6800, L100.0100, L500.2500 #### [facility] [address] [place], [address] GFR/1.73 sq M.predicted among non-blacks MDRD (S/P/Bld) [Vol rate/Area] 62 mL/min/{1.73_m2} Normal >60 [facility] Comment on above: Result Comment: mL/m in/1.73m2 CKD-EPI Creatinine Equation (2020) Performed By: #### L 700.6800, L100.0100, L500.2500 #### [facility] [address] [place], [address] Glucose [Mass/Vol] 203 mg/dL High 70-99 [facility] Comment on above: Performed By: #### L 700.6800, L100.0100, L500.2500 #### [facility] [address] [place], [address] Potassium [Moles/Vol] 4.0 mmol/L Normal 3.3-5.1 [facility] Comment on above: Performed By: #### L 700.6800, L100.0100, L500.2500 #### [facility] [address] [place], [address] Sodium [Moles/Vol] 135 mmol/L Normal 133-145 [facility] Comment on above: Performed By: #### L 700.6800, L100.0100, L500.2500 #### [facility] [address] [place], [address] Urea nitrogen [Mass/Vol] 19 mg/dL Normal 4-19 [facility] Comment on above: Performed By: #### L 700.6800, L100.0100, L500.2500 #### [facility] [address] [place], [address] Basophil percentageOrdered B y: Drew Aurelialori on 11-25-2024 Basophils/100 WBC (Bld) 0.3 % 0-1 [facility] Bedside Glucoseon 11-25-2024 FINGERSTICK GLU 139 mg/dL High 74-106 [facility] Comment on above: Result Comment: BULL SAMAYOA OF PATIENT CARE PER NURSING PROTOCOL Performed By: #### L 500.3400 #### [facility] [address] [place], [place], [address] Bilirubin Test strip Ql (U)O rdered By: Drew Hinson on 11-25-2024 Bilirubin Ql (U) 1 mg/dL High Negative [facility] Comment on above: COLOR OF URINE MAY A FFECT DIPSTICK RESULTS. Blood cultureOrdered By: Dwight Hinson on 11-25-2024 Bacteria identified Cx Nom (Bld) No growth in 5 days. [facility] Bacteria identified Cx Nom (Bld) No growth in 5 days. [facility] CBC W/Diff, Automatedon 11-09 PLT EST A Normal ADEQ [facility] Comment on above: Performed By: #### L 700.6800, L100.0100, L500.2500 #### [facility] [address] [place], [place], [address] Carbon dioxide, total [Moles /volume] in Central venous bloodOrdered By: Drew Hinson on 11-25-2024 CO2 [Moles/Vol] 21.3 mmol/L 21.0-32.0 [facility] Chloride assayOrdered By: Steven Hinson on 11-25-2024 Chloride [Moles/Vol] 97 mmol/L Low 98-108 [facility] Consultation - Surgicalon Consultation - Surgical [facility] Medical Records Department [address] [place] [address] Consultation - Surgical 11/25/242050 MR#: [id number] Acct: [id number] Name: GHISLAINE GIVENS Rep #: [id number] : 1990 34 From: Annalise Welch MD PCP: BROOKLYN Warren, JOB LITHOGRAPHER-C Status:ADM IN Location: [facility] EF718-3 Assessment Plan Assessment/Plan (1) Fecal impaction: (2) Acute proctitis: PLAN: Plan Discussed with patient would recommend additional enema to help soften the bowel of stool in the rectum. Along with additional ones after that. Continue IV Zosyn Discussed with patient plan to DC with laxatives. Annalise Welch M.D. Pager: [phone] [facility] [address] [place] [address], Outpatient Pavilion, [address] [place] [address] Office: [phone] HPI Consult Data Date of Consult: 11/26/24 [...] and did have some results with it. [facility] Medical History (Updated 11/25/24 @ 15:05 [...] 79.5 H, Lymph % (Auto) 11.4 L, [place] (more content not included)... Normal [facility] Emergency Department Summary on 11-25-2024 Emergency Department Summary [facility] Medical Records Department [address] [place] [address] Emergency Department Summary 11/25/24 MR#: [id number] Acct: [id number] Name: GHISLAINE GIVENS Rep #: [id number] : 1990 34 From: Drew Hinson MD PCP: Amy Solorzano [facility], JOB LITHOGRAPHER-C Status:REG ER Location: ED HPI HPI - [...] this diagnosis. No exacerbating or alleviating factors. [facility] Medical History Wears glasses History of MRSA [...] MDM N (more content not included)... Normal [facility] Eosinophil percentageOrdered By: Drew Hinson on 11-25-2024 Eosinophils/100 WBC (Bld) 0.1 % 0-5 [facility] Erythrocyte distribution wid th ratioOrdered By: Drew Hinson on 11-25-2024 Erythrocyte distribution width (RBC) [Ratio] 14.2 % 11.6-14.6 [facility] Erythrocyte distribution wid th standard deviationOrdered By: Drew Hinson on 11-25-2024 Erythrocyte distribution width (RBC) [Ratio] 41.1 fl 35.1-43.9 [facility] Glomerular filtration rate ( GFR) estimation/1.73 sq m using serum, plasma, or whole bOrdered By: Drew Hinson on 11-25-2024 GFR/1.73 sq M.predicted among non-blacks MDRD (S/P/Bld) [Vol rate/Area] 62 mL/min/{1.73_m2} >60 [facility] Comment on above: mL/min/1.73m2 CKD-EP I Creatinine Equation (2020) H AND P Exam - Hospitaliston 11-25-2024 H&P Exam - Hospitalist [facility] Medical Records Department [address] [place] [address] H P Exam - Hospitalist 11/25/24 1324 MR#: [id number] Acct: [id number] Name: GHISLAINE GIVENS Rep #: [id number] : 1990 34 From: Brenda Rao MD PCP: BROOKLYN Warren, JOB LITHOGRAPHER-C Status:ADM IN Location: [place] [id number] HPI - General General Date of Admission: [...] of severe constipation with likely overflow diarrhea. [facility] Medical History (Updated 11/25/24 @ 15:05 [...] Pressure Kedar (more content not included)... Normal [facility] Hematocrit Auto (Bld) [Volum e fraction]Ordered By: Drew Hinson on 11-25-2024 Hematocrit (Bld) [Volume fraction] 42.3 % 37-47 [facility] Hemoglobin measurementOrdere d By: Drew Hinson on 11-25-2024 Hemoglobin (Bld) [Mass/Vol] 14.1 g/dL 12.0-15.0 [facility] Hyaline casts LM.LPF (Urine sed) [#/Area]Ordered By: Drew Hinson on 11-25-2024 Hyaline casts (Urine sed) [#/Area] 0 /[LPF] 0-5 [facility] Immature granulocytes/100 WB C Auto (Bld)Ordered By: Drew Hinson on 11-25-2024 Immature granulocytes/100 WBC (Bld) 0.700 % 0.0-0.9 [facility] Comment on above: IG% - Immature Granu locytes (promyelocytes, myelocytes and metamyelocytes) > 1% indicates that a LEFT SHIFT is Present. Ketones Test strip Ql (U)Ord ered By: Drew Hinson on 11-25-2024 Ketones Ql (U) 5 mg/dl High Negative [facility] Lactic Acidon 11-25-2024 Lactate [Moles/Vol] 1.5 mmol/L Normal 0.0-2.0 [facility] Comment on above: Order Comment: Y Performed By: #### M 200.1000, L503.6005 #### [facility] [address] [place] [address], [address] Lactic acid measurementOrder ed By: Drew Hinson on 11-25-2024 Lactate [Moles/Vol] 1.5 mmol/L 0.0-2.0 [facility] MCV (mean corpuscular volume ) determinationOrdered By: Drew Hinson on 11-25-2024 MCV (RBC) [Entitic vol] 81.2 fL 81-99 [facility] Mean corpuscular hemoglobin (MCH) determinationOrdered By: Drew Hinson on 11-25-2024 MCH (RBC) [Entitic mass] 27.1 pg 27.0-32.0 [facility] Mean corpuscular hemoglobin concentration (MCHC) determinationOrdered By: Drew Hinson on 11-25-2024 MCHC (RBC) [Mass/Vol] 33.3 g/dL 32-36 [facility] Mean platelet volume determi nationOrdered By: Drew Hinson on 11-25-2024 Platelet mean volume (Bld) [Entitic vol] 9.4 fL 6.2-12.0 [facility] Microscopic analysis of urin e for red blood cells (RBC)Ordered By: Drew Hinson on 11-25-2024 Microscopic analysis of urine for red blood cells (RBC) 0-5 SEEN /hpf 0-5 [facility] Monocyte percentageOrdered B y: Drew Hinson on 11-25-2024 Monocytes/100 WBC (Bld) 8.0 % 0-10 [facility] Mucus LM Ql (Urine sed)Order ed By: Drew Hinson on 11-25-2024 Mucus Ql (Urine sed) 0 SEEN /hpf [facility] Neutrophil percentageOrdered By: Drew Hinson on 11-25-2024 Neutrophils/100 WBC (Bld) 79.5 % High 47-70 [facility] Nitrite Test strip Ql (U)Ord ered By: Drew Hinson on 11-25-2024 Nitrite Ql (U) Negative Negative [facility] Nucleated red blood cell per centageOrdered By: Drew Hinson on 11-25-2024 Nucleated RBC/100 WBC (Bld) [Ratio] 0 % 0-5 [facility] Platelet countOrdered By: Steven Hinson on 11-25-2024 Platelets (Bld) [#/Vol] 400 10*3/uL 150-450 [facility] Platelet estimateOrdered By: Drew Hinson on 11-25-2024 Platelets LM Ql (Bld) A ADEQ [facility] Potassium measurement (mass/ volume)Ordered By: Drew Hinson on 11-25-2024 Potassium (Unsp spec) [Mass/Vol] 4.0 mmol/L 3.3-5.1 [facility] ,Serum,hCG Quali.on 11-25-2024 HCG, SERUM QUAL Negative Normal [facility] Comment on above: Performed By: #### L 700.6800, L100.0100, L500.2500 #### [facility] [address] [place], [place] [address] [place], [place], [id number] Protein Test strip Ql (U)Ord ered By: Drew Vegacarole on 11-25-2024 Protein Ql (U) 30 mg/dl High Negative [facility] RBC Auto (Bld) [#/Vol]Ordere d By: Drew Hinson on 11-25-2024 RBC (Bld) [#/Vol] 5.21 10*6/uL 4.2-5.4 [facility] Serum beta-hCG test, qualita tiveOrdered By: Drew Hinson on 11-25-2024 Beta HCG ( test) Ql Negative [facility] Serum creatinine measurement (mass/volume)Ordered By: Drew Hinson on 11-25-2024 Creatinine [Mass/Vol] 1.20 mg/dL 0.70-1.20 [facility] Serum glucose measurement (m ass/volume)Ordered By: Drew Hinson on 11-25-2024 Glucose [Mass/Vol] 203 mg/dL High 70-99 [facility] Serum or plasma calcium hussein urement (mass/volume)Ordered By: Drew Hinson on 11-25-2024 Calcium [Mass/Vol] 9.6 mg/dL 7.6-11.0 [facility] Serum or plasma urea nitroge n measurement (mass/volume)Ordered By: Drew Hinson on 11-25-2024 Urea nitrogen [Mass/Vol] 19 mg/dL 4-19 [facility] Sodium levelOrdered By: Drew Hinson on 11-25-2024 Sodium [Moles/Vol] 135 mmol/L 133-145 [facility] Squamous epithelial cells de tection in urine sediment by light microscopyOrdered By: Drew Hinson on 11-25-2024 Epithelial cells.squamous LM Ql (Urine sed) 0-5 SEEN /hpf 5-10 [facility] Urinalysis, Completeon 11-25 CAST,HYALINE 0-5 SEEN Normal 0-5 [facility] Comment on above: Order Comment: CLEAN CATCH Performed By: #### L 500.2500, L100.0100 #### [facility] [address] [place], [place], [id number] AMORPHOUS 2+ URATE Normal [facility] Comment on above: Order Comment: CLEAN CATCH Performed By: #### L 500.2500, L100.0100 #### [facility] [address] [place], [address] EPI,SQUAMOUS 0-5 SEEN Normal 5-10 [facility] Comment on above: Order Comment: CLEAN CATCH Performed By: #### L 500.2500, L100.0100 #### [facility] [address] [place], [address] RBC 0-5 SEEN Normal 0-5 [facility] Comment on above: Order Comment: CLEAN CATCH Performed By: #### L 500.2500, L100.0100 #### [facility] [address] [place], [address] WBC 0-5 SEEN Normal 0-5 [facility] Comment on above: Order Comment: CLEAN CATCH Performed By: #### L 500.2500, L100.0100 #### [facility] [address] [place], [address] BACTERIA 0 SEEN Normal None Seen [facility] Comment on above: Order Comment: CLEAN CATCH Performed By: #### L 500.2500, L100.0100 #### [facility] [address] [place], [address] Mucus Ql (Urine sed) 0 SEEN Normal [facility] Comment on above: Order Comment: CLEAN CATCH Performed By: #### L 500.2500, L100.0100 #### [facility] [address] [place], [address] Urine clarityOrdered By: Dwight Hinson on 11-25-2024 Clarity (U) Cloudy Clear [facility] Urine color determinationOrd ered By: Drew Hinson on 11-25-2024 Color (U) Yellow Yellow [facility] Urine glucose detectionOrder ed By: Drew Hinson on 11-25-2024 Glucose Ql (U) Normal mg/dl Normal [facility] Urine leukocyte esterase det ection by dipstickOrdered By: Drew Hinson on 11-25-2024 Leukocyte esterase Test strip Ql (U) Negative Negative [facility] Urine pHOrdered By: Drew castellanos on 11-25-2024 pH (U) 6.0 [pH] 5.0 - 8.0 [facility] Urine sediment bacteria coun t by microscopy (number/high power field)Ordered By: Drew Hinson on 11-25-2024 Bacteria LM.HPF (Urine sed) [#/Area] 0 /[HPF] None Seen [facility] Urine specific gravity measu rementOrdered By: Drew Hinson on 11-25-2024 Specific gravity (U) [Rel density] 1.025 1.002-1.030 [facility] Urine urobilinogen measureme ntOrdered By: Drew Hinson on 11-25-2024 Urobilinogen Ql (U) 1 mg/dl High Normal [facility] White blood cell (WBC) count Ordered By: Drew Hinson on 11-25-2024 WBC (Bld) [#/Vol] 27.0 10*3/uL High 4.4-11.0 [facility] White blood cell countOrdere d By: Drew Hinson on 11-25-2024 White blood cell count 0-5 SEEN /hpf 0-5 [facility] Arterial study reportOrdered By: Tony Dwyer on 10-25-2024 Noninvasive arteriosclerosis study report [facility] [address] [place] [id number] Lower Ext Art Exam w/o Exercis 10/25/24 0847 MR#: [id number] Acct: [id number] Name: GHISLAINE GIVENS Rep #:[id number] : 1990 34 From: Tony Dwyer MD Attending Dr: Dr. Abdirizak Forrest, DPPrisca Status: REG CLI Ordering Dr: Abdirizak Forrest DPPrisca Date: 10/25/24 Location: [facility] Sex: F C Admitted: Reason For Study [...] _ Tony Dwyer MD CC: YESY Forrest; [facility] JOB LITHOGRAPHER-C Amy Solorzano ~ Date Dictated: 10/25/24 0847 Date Transcribed: 10/25/242211 Neurology Stroke Physician: Signed [facility] Other Phone: Lower Ext Art Exam w/o Exerc rudy 10-25-2024 Lower Ext Art Exam w/o Exercis [facility] [place] [address] Lower Ext Art Exam w/o Exercis 10/25/24 0847 MR#: [id number] Acct: [id number] Name: GHISLAINE GIVENS Rep #: [id number] : 1990 34 From: Tony Dwyer MD Attending Dr: Dr. Abdirizak Forrest, YESY Status: RE G CLI Ordering Dr: Abdirizak Forrest DPM Date: 10/25/24 Location: [facility] Sex: F C Admitted: Reason For Study [...] Dwyer MD CC: DPM Dr. Abdirizak Forrest; [facility] JOB LITHOGRAPHER-C Amy Solorzano Date Dictated: 10/25/2447 Date Transcribed: 10/25/242211 Neurology Stroke Physician: Signed Normal [facility] Venous Duplex US - Tayo Extre mon 10-25-2024 Venous Duplex US - Tayo Extrem [facility] [address] [place] [address] Venous Duplex US - Tayo Extrem 10/25/24 0806 MR#: [id number] Acct: [id number] Name: GHISLAINE GIVENS Rep #: [id number] : 1990 34 From: Tony Dwyer MD [...] competent and measures 0.21 x 0.23 INCOMPETENT power chisel operator noted 8 cm above medial cm. maleolus. [...] right proximal calf is incompetent. An incompetent power chisel operator vein is noted in the right calf, located 8 centimeters proximal to the right medial malleolus. Ordering Physician: Abdirizak Forrest Referring Physician: Amy Solorzano Performed By: Willinger, Saima, RVT 10/25/242200 Date Tony Dwyer MD CC: DPM Dr. Abdirizak Forrest; [facility] JOB LITHOGRAPHER-C Amy Rashad Date Dictated: 10/25/24805 Date Transcribed: 10/25/242200 Neurology Stroke Physician: Signed Normal [facility] Venous duplex ultrasound rep ortOrdered By: Tony Dwyer on 10-25-2024 US Vein [facility] [address] [place] [address] Venous Duplex US - Tayo Extrem 10/25/24805 MR#: [id number] Acct: [id number] Name: GHISLAINE GIVENS Rep #:[id number] : 1990 34 From: Tony Dwyer MD [...] competent and measures 0.21 x 0.23 INCOMPETENT power chisel operator noted 8 cm above medial cm. maleolus. [...] right proximal calf is incompetent. An incompetent power chisel operator vein is noted in the right calf, located 8 centimeters proximal to the right medial malleolus. Ordering Physician: Abdirizak Forrest Referring Physician: Amy Solorzano Performed By: Saima De La Torre RVT 10/25/24 0190 Date _ Tony Dwyer MD CC: DPM Dr. Abdirizak Forrest; [facility] JOB LITHOGRAPHER-C Amykeiko Solorzano ~ Date Dictated: 10/25/24805 Date Transcribed: 10/25/242200 Neurology Stroke Physician: Signed [facility] Other Phone: Absolute lymphocyte countOrd ered By: [facility] Amy Solorzano on 10-17-2024 Lymphocytes Auto (Unsp spec) [#/Vol] 3.16 10*3/uL 0.83-4.51 [facility] Absolute neutrophil countOrd ered By: [facility] Amy Solorzano on 10-17-2024 Neutrophils (Bld) [#/Vol] 6.6 10*3/uL 2.0-7.7 [facility] Albumin DL <= 20 mg/L (U) [M ass/Vol]Ordered By: [facility] Amy Solorzano on 10-17-2024 Urine Random Microalbumin < 12.0 mg/L NO RANGE EST. [facility] Anion gap in Serum or Plasma Ordered By: [facility] Amy Solorzano on 10-17-2024 Anion gap [Moles/Vol] 14 mmol/L 5-15 [facility] Automated lymphocyte count a s percentage of total leukocytesOrdered By: [facility] Amy Solorzano on 10-17-2024 Lymphocytes/100 WBC Auto (Unsp spec) 29.7 % 19-41 [facility] BUN/creatinine ratioOrdered By: [facility] Amy Solorzano on 10-17-2024 Urea nitrogen/Creatinine [Mass ratio] 14.4 mg/mg 10-20 [facility] Basophil percentageOrdered B y: [facility] Amy Solorzano on 10-17-2024 Basophils/100 WBC (Bld) 0.4 % 0-1 [facility] Bilirubin, totalOrdered By: [facility] Amy Solorzano on 10-17-2024 Bilirubin [Mass/Vol] 0.21 mg/dL 0.00-1.30 [facility] CBC W/Diff, Automatedon Absolute Lymph 3.16 X10 3/uL Normal 0.83-4.51 [facility] Comment on above: Performed By: #### L 700.6800, L100.0100, L500.2500 #### [facility] [address] [place], [address] Absolute Neut 6.6 X10 3/uL Normal 2.0-7.7 [facility] Comment on above: Performed By: #### L 700.6800, L100.0100, L500.2500 #### [facility] [address] [place], [address] Basophils/100 WBC (Bld) 0.4 % Normal 0-1 [facility] Comment on above: Performed By: #### L 700.6800, L100.0100, L500.2500 #### [facility] [address] [place], [address] Eosinophils/100 WBC (Bld) 0.7 % Normal 0-5 [facility] Comment on above: Performed By: #### L 700.6800, L100.0100, L500.2500 #### [facility] [address] [place], [address] Erythrocyte distribution width (RBC) [Ratio] 14.1 % Normal 11.6-14.6 [facility] Comment on above: Performed By: #### L 700.6800, L100.0100, L500.2500 #### [facility] [address] [place], [address] Hematocrit (Bld) [Volume fraction] 39.5 % Normal 37-47 [facility] Comment on above: Performed By: #### L 700.6800, L100.0100, L500.2500 #### [facility] [address] [place], [address] Hemoglobin (Bld) [Mass/Vol] 12.8 g/dL Normal 12.0-15.0 [facility] Comment on above: Performed By: #### L 700.6800, L100.0100, L500.2500 #### [facility] [address] [place], [address] IG% 1.000 High 0.0-0.9 [facility] Comment on above: Result Comment: IG% - Immature Granulocytes (promyelocytes, myelocytes and metamyelocytes) > 1% indicates that a LEFT SHIFT is Present. Performed By: #### L 700.6800, L100.0100, L500.2500 #### [facility] [address] [place], [address] Lymphocytes/100 WBC (Bld) 29.7 % Normal 19-41 [facility] Comment on above: Performed By: #### L 700.6800, L100.0100, L500.2500 #### [facility] [address] [facility] [place], [address] MCH (RBC) [Entitic mass] 26.6 pg Low 27.0-32.0 [facility] Comment on above: Performed By: #### L 700.6800, L100.0100, L500.2500 #### [facility] [address] [facility] [place], [address] MCHC (RBC) [Mass/Vol] 32.4 g/dL Normal 32-36 [facility] Comment on above: Performed By: #### L 700.6800, L100.0100, L500.2500 #### [facility] [address] [place], [address] MCV (RBC) [Entitic vol] 82.1 fL Normal 81-99 [facility] Comment on above: Performed By: #### L 700.6800, L100.0100, L500.2500 #### [facility] [address] [facility] [place], [address] Monocytes/100 WBC (Bld) 6.0 % Normal 0-10 [facility] Comment on above: Performed By: #### L 700.6800, L100.0100, L500.2500 #### [facility] [address] [place], [address] Neutrophils/100 WBC (Bld) 62.2 % Normal 47-70 [facility] Comment on above: Performed By: #### L 700.6800, L100.0100, L500.2500 #### [facility] [address] [place], [address] Nucleated RBC (Bld) [#/Vol] 0 10*3/uL Normal 0-5 [facility] Comment on above: Performed By: #### L 700.6800, L100.0100, L500.2500 #### [facility] [address] [place], [address] Platelet mean volume (Bld) [Entitic vol] 9.7 fL Normal 6.2-12.0 [facility] Comment on above: Performed By: #### L 700.6800, L100.0100, L500.2500 #### [facility] [address] [place], [address] Platelets (Bld) [#/Vol] 332 10*3/uL Normal 150-450 [facility] Comment on above: Performed By: #### L 700.6800, L100.0100, L500.2500 #### [facility] [address] [place], [address] RBC (Bld) [#/Vol] 4.81 10*6/uL Normal 4.2-5.4 [facility] Comment on above: Performed By: #### L 700.6800, L100.0100, L500.2500 #### [facility] [address] [place], [address] RDW SD 41.9 fl Normal 35.1-43.9 [facility] Comment on above: Performed By: #### L 700.6800, L100.0100, L500.2500 #### [facility] [address] [place], [address] WBC (Bld) [#/Vol] 10.6 10*3/uL Normal 4.4-11.0 [facility] Comment on above: Performed By: #### L 700.6800, L100.0100, L500.2500 #### [facility] [address] [place], [address] Calculated very low density lipoprotein (VLDL) cholesterol measurementOrdered By: [facility] Amy Solorzano on 10-17-2024 Calculated very low density lipoprotein (VLDL) cholesterol measurement 57 mg/dL High 5-40 [facility] VLDL Cholesterol 57 mg/dL High 5-40 [facility] Carbon dioxide, total [Moles /volume] in Central venous bloodOrdered By: [facility] Amy Solorzano on 10-17-2024 CO2 [Moles/Vol] 21.8 mmol/L 21.0-32.0 [facility] Chloride assayOrdered By: [facility] Amy Solorzano on 10-17-2024 Chloride [Moles/Vol] 99 mmol/L 98-108 [facility] Comprehensive Metabolic Prof ilon 10-17-2024 Albumin [Mass/Vol] 3.7 g/dL Normal 3.5-5.0 [facility] Comment on above: Performed By: #### L 700.6800, L100.0100, L500.2500 #### [facility] [address] [place], [address] Albumin/Globulin [Mass ratio] 0.9 {ratio} Normal 0.9-2.4 [facility] Comment on above: Performed By: #### L 700.6800, L100.0100, L500.2500 #### [facility] [address] [place], [address] ALK PHOS 93 U/L Normal 35-104 [facility] Comment on above: Performed By: #### L 700.6800, L100.0100, L500.2500 #### [facility] [address] [place], [address] ALT [Catalytic activity/Vol] 12 U/L Normal <=34 [facility] Comment on above: Performed By: #### L 700.6800, L100.0100, L500.2500 #### [facility] [address] [place], [address] AST [Catalytic activity/Vol] 18 U/L Normal <=31 [facility] Comment on above: Performed By: #### L 700.6800, L100.0100, L500.2500 #### [facility] [address] [place], [address] Bilirubin [Mass/Vol] 0.21 mg/dL Normal 0.00-1.30 [facility] Comment on above: Performed By: #### L 700.6800, L100.0100, L500.2500 #### [facility] [address] [place], [address] BUN/CRE 14.4 RATIO Normal 10-20 [facility] Comment on above: Performed By: #### L 700.6800, L100.0100, L500.2500 #### [facility] [address] [place], [address] Calcium [Mass/Vol] 9.2 mg/dL Normal 7.6-11.0 [facility] Comment on above: Performed By: #### L 700.6800, L100.0100, L500.2500 #### [facility] [address] [place], [address] Chloride [Moles/Vol] 99 mmol/L Normal 98-108 [facility] Comment on above: Performed By: #### L 700.6800, L100.0100, L500.2500 #### [facility] [address] [place], [address] CO2 [Moles/Vol] 21.8 mmol/L Normal 21.0-32.0 [facility] Comment on above: Performed By: #### L 700.6800, L100.0100, L500.2500 #### [facility] [address] [place], [address] Creatinine [Mass/Vol] 0.84 mg/dL Normal 0.70-1.20 [facility] Comment on above: Performed By: #### L 700.6800, L100.0100, L500.2500 #### [facility] [address] [place], [address] GAP 14 Normal 5-15 [facility] Comment on above: Performed By: #### L 700.6800, L100.0100, L500.2500 #### [facility] [address] [place], [address] GFR/1.73 sq M.predicted among non-blacks MDRD (S/P/Bld) [Vol rate/Area] 95 mL/min/{1.73_m2} Normal >60 [facility] Comment on above: Result Comment: mL/m in/1.73m2 CKD-EPI Creatinine Equation (2020) Performed By: #### L 700.6800, L100.0100, L500.2500 #### [facility] [address] [place], [address] Globulin (S) [Mass/Vol] 3.9 g/dL Normal 2.2-4.2 [facility] Comment on above: Performed By: #### L 700.6800, L100.0100, L500.2500 #### [facility] [address] [place], [address] Glucose [Mass/Vol] 233 mg/dL High 70-99 [facility] Comment on above: Performed By: #### L 700.6800, L100.0100, L500.2500 #### [facility] [address] [place], [address] Potassium [Moles/Vol] 4.6 mmol/L Normal 3.3-5.1 [facility] Comment on above: Performed By: #### L 700.6800, L100.0100, L500.2500 #### [facility] [address] [place], [address] Sodium [Moles/Vol] 135 mmol/L Normal 133-145 [facility] Comment on above: Performed By: #### L 700.6800, L100.0100, L500.2500 #### [facility] [address] [place], [address] T PROT 7.5 g/dL Normal 5.9-8.4 [facility] Comment on above: Performed By: #### L 700.6800, L100.0100, L500.2500 #### [facility] [address] [place], [address] Urea nitrogen [Mass/Vol] 12 mg/dL Normal 4-19 [facility] Comment on above: Performed By: #### L 700.6800, L100.0100, L500.2500 #### [facility] [address] [place], [address] Eosinophil percentageOrdered By: [facility] Amy Solorzano on 10-17-2024 Eosinophils/100 WBC (Bld) 0.7 % 0-5 [facility] Erythrocyte distribution wid th (RBC) [Ratio]Ordered By: [facility] Amy Solorzano on 10-17-2024 Erythrocyte distribution width (RBC) [Entitic vol] 41.9 fL 35.1-43.9 [facility] Erythrocyte distribution wid th ratioOrdered By: [facility] Amy Solorzano on 10-17-2024 Erythrocyte distribution width (RBC) [Ratio] 14.1 % 11.6-14.6 [facility] Erythrocyte distribution wid th standard deviationOrdered By: [facility] Amy Solorzano on 10-17-2024 Erythrocyte distribution width (RBC) [Ratio] 41.9 fl 35.1-43.9 [facility] GFR/1.73 sq M.predicted taryn g non-blacks MDRD (S/P/Bld) [Vol rate/Area]Ordered By: [facility] Amy Solorzano on 10-17-2024 Estimated GFR (MDRD) Non-Af Amer 95 >60 [facility] Comment on above: mL/min/1.73m2 CKD-EP I Creatinine Equation (2020) Glomerular filtration rate ( GFR) estimation/1.73 sq m using serum, plasma, or whole bOrdered By: [facility] Amy Solorzano on 10-17-2024 GFR/1.73 sq M.predicted among non-blacks MDRD (S/P/Bld) [Vol rate/Area] 95 mL/min/{1.73_m2} >60 [facility] Comment on above: mL/min/1.73m2 CKD-EP I Creatinine Equation (2020) Hematocrit Auto (Bld) [Volum e fraction]Ordered By: [facility] Amy Solorzano on 10-17-2024 Hematocrit (Bld) [Volume fraction] 39.5 % 37-47 [facility] Hemoglobin measurementOrdere d By: [facility] Amy Solorzano on 10-17-2024 Hemoglobin (Bld) [Mass/Vol] 12.8 g/dL 12.0-15.0 [facility] Immature granulocytes/100 WB C Auto (Bld)Ordered By: [facility] Amy Solorzano on 10-17-2024 Immature granulocytes/100 WBC (Bld) 1.000 % High 0.0-0.9 [facility] Comment on above: IG% - Immature Granu locytes (promyelocytes, myelocytes and metamyelocytes) > 1% indicates that a LEFT SHIFT is Present. LDL calc ser/plasOrdered By: [facility] Amy Solorzano on 10-17-2024 Cholesterol in LDL [Mass/Vol] 70 mg/dL [facility] Comment on above: Djzweqguwo=364-396 m g/dL & Higher Hzie=545 mg/dL or greater LDL Cholesterol, Calculated 70 mg/dL [facility] Comment on above: Tdgfypwnrj=714-814 m g/dL & Higher Etbb=766 mg/dL or greater Laboratory - Chemistry and C hemistry - challengeOrdered By: [facility] Amy Solorzano on 10-17-2024 AST [Catalytic activity/Vol] 18 U/L <32 [facility] Lipid Profileon 10-17-2024 CHOL:HDL 4.44 Normal [facility] Comment on above: Performed By: #### L 700.6800, L100.0100, L500.2500 #### [facility] [address] [place], [address] Cholesterol [Mass/Vol] 164 mg/dL Normal <=200 [facility] Comment on above: Result Comment: Chol esterol level, Desirable <200 mg/dL Borderline high cholesterol 200-239 mg/dL High cholesterol >=240 mg/dL Recommendations of the NCEP Adult Treatment Panel for the following risk-cutoff thresholds for the [place] population. Performed By: #### L 700.6800, L100.0100, L500.2500 #### [facility] [address] [place], [address] Cholesterol in HDL [Mass/Vol] 37 mg/dL Low [facility] Comment on above: Result Comment: Lupe onal Cholesterol Education Program (NCEP) guidelines: <40 mg/dL: Low HDL-cholesterol (major risk factor for CHD) >= 60 mg/dL: High HDL-cholesterol (negative risk factor for CHD) HDL-cholesterol is affected by a number of factors, e.g. smoking, exercise, hormones, sex and age. Performed By: #### L 700.6800, L100.0100, L500.2500 #### [facility] [address] [place], [address] Cholesterol in LDL [Mass/Vol] 70 mg/dL Normal [facility] Comment on above: Result Comment: Bord ewswqc=425-339 mg/dL Higher Dnfu=637 mg/dL or greater Performed By: #### L 700.6800, L100.0100, L500.2500 #### [facility] [address] [place], [address] Cholesterol in VLDL [Mass/Vol] 57 mg/dL High 5-40 [facility] Comment on above: Performed By: #### L 700.6800, L100.0100, L500.2500 #### [facility] [address] [place], [address] Triglyceride [Mass/Vol] 287 mg/dL High [facility] Comment on above: Result Comment: The drugs N-Acetylcysteine and Metamizole may falsely depress this assay. Normal range: <150 mg/dL Borderline High: 150-199 mg/dL High: 200-499 mg/dL Very High: >500 mg/dL Performed By: #### L 700.6800, L100.0100, L500.2500 #### [facility] [address] [place], [address] Lymphocytes Auto (Unsp spec) [#/Vol]Ordered By: [facility] Amy Solorzano on 10-17-2024 Lymphocytes (Bld) [#/Vol] 3.16 10*3/uL 0.83-4.51 [facility] Lymphocytes/100 WBC Auto (Un sp spec)Ordered By: [facility] Amy Solorzano on 10-17-2024 Lymphocytes/100 WBC (Bld) 29.7 % 19-41 [facility] MCV (mean corpuscular volume ) determinationOrdered By: [facility] Amy Solorzano on 10-17-2024 MCV (RBC) [Entitic vol] 82.1 fL 81-99 [facility] Mean corpuscular hemoglobin (MCH) determinationOrdered By: [facility] Amy Solorzano on 10-17-2024 MCH (RBC) [Entitic mass] 26.6 pg Low 27.0-32.0 [facility] Mean corpuscular hemoglobin concentration (MCHC) determinationOrdered By: [facility] Amy Solorzano on 10-17-2024 MCHC (RBC) [Mass/Vol] 32.4 g/dL 32-36 [facility] Mean platelet volume determi nationOrdered By: [facility] Amy Solorzano on 10-17-2024 Platelet mean volume (Bld) [Entitic vol] 9.7 fL 6.2-12.0 [facility] Microalbumin,Random Urineon 10-17-2024 MICROALBUMIN,UR < 12.0 Normal NO RANGE EST. [facility] Comment on above: Performed By: #### L 700.6800, L100.0100, L500.2500 #### [facility] [address] [place], [address] Monocyte percentageOrdered B y: [facility] Amy Solorzano on 10-17-2024 Monocytes/100 WBC (Bld) 6.0 % 0-10 [facility] Neutrophil percentageOrdered By: [facility] on 10-17-2024 Neutrophils/100 WBC (Bld) 62.2 % 47-70 [facility] Nucleated red blood cell per centageOrdered By: [facility] on 10-17-2024 Nucleated RBC/100 WBC (Bld) [Ratio] 0 % 0-5 [facility] Platelet countOrdered By: [facility] Amy Solorzano on 10-17-2024 Platelets (Bld) [#/Vol] 332 10*3/uL 150-450 [facility] Potassium (Unsp spec) [Mass/ Vol]Ordered By: [facility] on 10-17-2024 Potassium [Moles/Vol] 4.6 mmol/L 3.3-5.1 [facility] Potassium measurement (mass/ volume)Ordered By: [facility] on 10-17-2024 Potassium (Unsp spec) [Mass/Vol] 4.6 mmol/L 3.3-5.1 [facility] RBC Auto (Bld) [#/Vol]Ordere d By: [facility] on 10-17-2024 RBC (Bld) [#/Vol] 4.81 10*6/uL 4.2-5.4 [facility] Screening total cholesterol/ high density lipoprotein (HDL) cholesterol ratioOrdered By: [facility] Amy Solorzano on 10-17-2024 Cholesterol.total/Breonna sterol in HDL [Mass ratio] 4.44 {ratio} [facility] Serum creatinine measurement (mass/volume)Ordered By: [facility] Amy Solorzano on 10-17-2024 Creatinine [Mass/Vol] 0.84 mg/dL 0.70-1.20 [facility] Serum globulin measurementOr dered By: [facility] Amykeiko Solorzano on 10-17-2024 Globulin (S) [Mass/Vol] 3.9 g/dL 2.2-4.2 [facility] Serum glucose measurement (m ass/volume)Ordered By: [facility] Amy Solorzano on 10-17-2024 Glucose [Mass/Vol] 233 mg/dL High 70-99 [facility] Serum or plasma alanine jordan otransferase (ALT) measurementOrdered By: [facility] Amy Solorzano on 10-17-2024 ALT [Catalytic activity/Vol] 12 U/L <35 [facility] Serum or plasma albumin hussein urement (mass/volume)Ordered By: [facility] Amy Solorzano on 10-17-2024 Albumin [Mass/Vol] 3.7 g/dL 3.5-5.0 [facility] Serum or plasma albumin/glob ulin mass ratioOrdered By: [facility] Amy Solorzano on 10-17-2024 Albumin/Globulin [Mass ratio] 0.9 {ratio} 0.9-2.4 [facility] Serum or plasma alkaline bradley sphatase measurementOrdered By: [facility] Amy Solorzano on 10-17-2024 ALP [Catalytic activity/Vol] 93 U/L 35-104 [facility] Serum or plasma calcium hussein urement (mass/volume)Ordered By: [facility] Amy Solorzano on 10-17-2024 Calcium [Mass/Vol] 9.2 mg/dL 7.6-11.0 [facility] Serum or plasma cholesterol in HDL measurement (mass/volume)Ordered By: [facility] Amy Solorzano on 10-17-2024 Cholesterol in HDL [Mass/Vol] 37 mg/dL Low >40 [facility] Comment on above: National Cholesterol Education Program (NCEP) guidelines:<40 mg/dL: Low HDL-cholesterol (major risk factor for CHD)>= 60 mg/dL: High HDL-cholesterol (negative risk factor for CHD)HDL-cholesterol is affected by a number of factors, e.g. smoking, exercise, hormones, sex and age. Serum or plasma cholesterol measurement (mass/volume)Ordered By: [facility] Amy Solorzano on 10-17-2024 Cholesterol [Mass/Vol] 164 mg/dL <201 [facility] Comment on above: Cholesterol level, D esirable <200 mg/dLBorderline high cholesterol 200-239 mg/dLHigh cholesterol >=240 mg/dLRecommendations of the NCEP Adult Treatment Panel for the following risk-cutoff thresholds for the [place] population. Serum or plasma urea nitroge n measurement (mass/volume)Ordered By: [facility] Amy Solorzano on 10-17-2024 Urea nitrogen [Mass/Vol] 12 mg/dL 4-19 [facility] Sodium levelOrdered By: [facility] Amy Solorzano on 10-17-2024 Sodium [Moles/Vol] 135 mmol/L 133-145 [facility] TSH DL <= 0.005 mIU/L QnOrde red By: [facility] Amy Solorzano on 10-17-2024 Thyroid Stimulating Hormone (TSH) 1.180 uIU/mL 0.300-4.200 [facility] TSH Qn 1.180 uIU/mL 0.300-4.200 [facility] Thyroid Stim Hormone (TSH)on 10-17-2024 TSH 1.180 uIU/mL Normal 0.300-4.200 [facility] Comment on above: Performed By: #### L 700.6800, L100.0100, L500.2500 #### [facility] [address] [place], [address] Total proteinOrdered By: [facility] Amy Solorzano on 10-17-2024 Protein [Mass/Vol] 7.5 g/dL 5.9-8.4 [facility] Triglycerides measurementOrd ered By: [facility] Amy Solorzano on 10-17-2024 Triglyceride [Mass/Vol] 287 mg/dL High <199 [facility] Comment on above: The drugs N-Acetylcy steine and Metamizole may falsely depress this assay. Normal range: <150 mg/dLBorderline High: 150-199 mg/dLHigh: 200-499 mg/dLVery High: >500 mg/dL Urine albumin measurement wi th detection limit of 20 mg/L or less (mass/volume)Ordered By: [facility] Amy Solorzano on 10-17-2024 Albumin DL <= 20 mg/L (U) [Mass/Vol] < 12.0 mg/L NO RANGE EST. [facility] Vitamin D, 25-hydroxyOrdered By: [facility] Amy Solorzano on 10-17-2024 Vitamin D 25-Hydroxy 10.7 ng/mL Low 30-100 [facility] Comment on above: Vitamin D StatusDefi ciency: <20 ng/mL (50nmol/L)Insufficiency: 20-30 ng/mL (50-75 nmol/L)Sufficiency: 30-100 ng/mL (75-250 nmol/L)Toxicity: >100 ng/mL (>250 nmol/L) Vitamin D,25 Hydroxyon 10-17 Vitamin D 25-OH 10.7 ng/mL Low 30-100 [facility] Comment on above: Result Comment: Claudia min D Status Deficiency: <20 ng/mL (50nmol/L) Insufficiency: 20-30 ng/mL (50-75 nmol/L) Sufficiency: 30-100 ng/mL (75-250 nmol/L) Toxicity: >100 ng/mL (>250 nmol/L) Performed By: #### L 700.6800, L100.0100, L500.2500 #### [facility] [place], [address] White blood cell (WBC) count Ordered By: [facility] Amy Solorzano on 10-17-2024 WBC (Bld) [#/Vol] 10.6 10*3/uL 4.4-11.0 [facility] CNOVon 07-03-2024 CNOV Office Visit (UCWSTR ) GHISLAINE GIVENS ([id number]) 1990 F UPA Date Time Provider Department 07/03/24 1:00 PM [facility] During your visit today, we recorded the following information about you: Temperature Pulse Respiration Blood pressure 97 degrees 104/minute 16/minute 122/90 Weight Last Period 115.9 kg 06/20/24 Irais Hanna PA 07/03/2024 1:13 PM Signed This note was created using clickTRUE. Subjective Ghislaine Givens is a 34 year [...] 1 disorder (HCC) 2007 Depression Diabetes mellitus ([facility]) Elevated BP 04/28/2013 Insomnia PAST SURGICAL HISTORY [...] a diabeti (more content not included)... Normal [facility] XR CHEST 2V FRONTAL/LATon XR CHEST [...] Low lung volumes. No acute radiographic abnormality. Neurology Stroke Physician: OLGA Transcribe Date/Time: Jul 03 2024 1:07P Dictated by : THANIA ROSS DO This examination was interpreted and the report reviewed and electronically signed by: THANIA ROSS DO on Jul 03 2024 1:08PM EST [id number] Normal [facility] XR Chest PA and Lateralon IMPRESSION: Low lung volumes. No acute radiographic abnormality. Neurology Stroke Physician: OLGA Transcribe Date/Time: Jul 03 2024 1:07P [...] soft tissues: Unremarkable. DIVISION OF RADIOLOGY Provider, [facility] - 07/03/2024 * * *Final Report* [...] Low lung volumes. No acute radiographic abnormality. Neurology Stroke Physician: PSCB Transcribe Date/Time: Jul 03 2024 1:07P Dictated by : THANIA ROSS DO This examination was interpreted and the report reviewed and electronically signed by: THANIA ROSS DO on Jul 03 2024 1:08PM [facility] Radiology Study observation (narrative) Melissa gupta [facility] XR Chest PA and LateralOrder ed By: Ccf Provider on 07-03-2024 [facility] CNOVon 06-26-2024 CNOV Office Visit (UCWSTR ) GHISLAINE GIVENS ([id number]) 1990 F UPA Date Time Provider Department 06/26/24 10:30 AM FRANTZ AREVALO [facility] During your visit today, we recorded the following information about you: Temperature Pulse Respiration Blood pressure 97.4 degrees 117/minute 18/minute 122/78 Weight 115.7 kg Frantz Arevalo PA-C 06/26/2024 11:03 AM Signed This note was created using clickTRUE. Subjective Ghislaine Givens is a 34 year [...] powder T (more content not included)... Normal [facility] CBC W/Diff, Automatedon 04-11 Absolute Lymph 4.36 X10 3/uL Normal 0.83-4.51 [facility] Comment on above: Performed By: #### L 500.2500, L100.0100 #### [facility] [address] [place], [address] Absolute Neut 7.1 X10 3/uL Normal 2.0-7.7 [facility] Comment on above: Performed By: #### L 500.2500, L100.0100 #### [facility] [address] [place], [address] Basophils/100 WBC (Bld) 0.6 % Normal 0-1 [facility] Comment on above: Performed By: #### L 500.2500, L100.0100 #### [facility] [address] [place], [address] Eosinophils/100 WBC (Bld) 1.3 % Normal 0-5 [facility] Comment on above: Performed By: #### L 500.2500, L100.0100 #### [facility] [address] [place], [address] Erythrocyte distribution width (RBC) [Ratio] 13.6 % Normal 11.6-14.6 [facility] Comment on above: Performed By: #### L 500.2500, L100.0100 #### [facility] [address] [place], [address] Hematocrit (Bld) [Volume fraction] 41.6 % Normal 37-47 [facility] Comment on above: Performed By: #### L 500.2500, L100.0100 #### [facility] [address] [place], [address] Hemoglobin (Bld) [Mass/Vol] 13.1 g/dL Normal 12.0-15.0 [facility] Comment on above: Performed By: #### L 500.2500, L100.0100 #### [facility] [address] [place], [address] IG% 1.300 High 0.0-0.9 [facility] Comment on above: Result Comment: IG% - Immature Granulocytes (promyelocytes, myelocytes and metamyelocytes) > 1% indicates that a LEFT SHIFT is Present. Performed By: #### L 500.2500, L100.0100 #### [facility] [address] [place], [address] Lymphocytes/100 WBC (Bld) 34.7 % Normal 19-41 [facility] Comment on above: Performed By: #### L 500.2500, L100.0100 #### [facility] [address] [place], [address] MCH (RBC) [Entitic mass] 26.3 pg Low 27.0-32.0 [facility] Comment on above: Performed By: #### L 500.2500, L100.0100 #### [facility] [address] [place], [address] MCHC (RBC) [Mass/Vol] 31.5 g/dL Low 32-36 [facility] Comment on above: Performed By: #### L 500.2500, L100.0100 #### [facility] [address] [place], [address] MCV (RBC) [Entitic vol] 83.5 fL Normal 81-99 [facility] Comment on above: Performed By: #### L 500.2500, L100.0100 #### [facility] [address] [place], [address] Monocytes/100 WBC (Bld) 5.4 % Normal 0-10 [facility] Comment on above: Performed By: #### L 500.2500, L100.0100 #### [facility] [address] [place], [address] Neutrophils/100 WBC (Bld) 56.7 % Normal 47-70 [facility] Comment on above: Performed By: #### L 500.2500, L100.0100 #### [facility] [address] [place], [address] Nucleated RBC (Bld) [#/Vol] 0 10*3/uL Normal 0-5 [facility] Comment on above: Performed By: #### L 500.2500, L100.0100 #### [facility] [address] [place], [address] Platelet mean volume (Bld) [Entitic vol] 9.4 fL Normal 6.2-12.0 [facility] Comment on above: Performed By: #### L 500.2500, L100.0100 #### [facility] [address] [place], [address] Platelets (Bld) [#/Vol] 368 10*3/uL Normal 150-450 [facility] Comment on above: Performed By: #### L 500.2500, L100.0100 #### [facility] [address] [place], [address] RBC (Bld) [#/Vol] 4.98 10*6/uL Normal 4.2-5.4 [facility] Comment on above: Performed By: #### L 500.2500, L100.0100 #### [facility] [address] [place], [address] RDW SD 41.3 fl Normal 35.1-43.9 [facility] Comment on above: Performed By: #### L 500.2500, L100.0100 #### [facility] [address] [place], [address] WBC (Bld) [#/Vol] 12.6 10*3/uL High 4.4-11.0 [facility] Comment on above: Performed By: #### L 500.2500, L100.0100 #### [facility] [address] [place], [address] Comprehensive Metabolic Prof [facility] 04-25-2024 Albumin [Mass/Vol] 3.3 g/dL Normal 3.2-5.0 [facility] Comment on above: Performed By: #### L 500.2500, L100.0100 #### [facility] [address] [place], [address] Albumin/Globulin [Mass ratio] 0.6 {ratio} Low 0.9-2.4 [facility] Comment on above: Performed By: #### L 500.2500, L100.0100 #### [facility] [address] [place], [address] ALK P 89 U/L Normal 45-117 [facility] Comment on above: Performed By: #### L 500.2500, L100.0100 #### [facility] [address] [place], [address] ALT [Catalytic activity/Vol] 24 U/L Normal 13-56 [facility] Comment on above: Performed By: #### L 500.2500, L100.0100 #### [facility] [address] [place], [address] AST [Catalytic activity/Vol] 9 U/L Low 15-37 [facility] Comment on above: Performed By: #### L 500.2500, L100.0100 #### [facility] [address] [place], [address] Bilirubin [Mass/Vol] 0.30 mg/dL Normal 0.20-1.00 [facility] Comment on above: Result Comment: For patients on eltrombopag therapy, use of Dimension [place] TBIL is not recommended. Performed By: #### L 500.2500, L100.0100 #### [facility] [address] [place], [address] BUN/CRE 13.5 RATIO Normal 10-20 [facility] Comment on above: Performed By: #### L 500.2500, L100.0100 #### [facility] [address] [place], [address] CA,Total 9.1 mg/dL Normal 8.5-10.1 [facility] Comment on above: Performed By: #### L 500.2500, L100.0100 #### [facility] [address] [place], [address] Chloride [Moles/Vol] 108 mmol/L High 98-107 [facility] Comment on above: Performed By: #### L 500.2500, L100.0100 #### [facility] [address] [place], [address] CO2 [Moles/Vol] 23.0 mmol/L Normal 21.0-32.0 [facility] Comment on above: Performed By: #### L 500.2500, L100.0100 #### [facility] [address] [place], [address] Creatinine [Mass/Vol] 0.89 mg/dL Normal 0.55-1.02 [facility] Comment on above: Result Comment: The validity of the calculated GFR GFRAA in patients over 70 years has not been determined. Clinical correlation is essential. Performed By: #### L 500.2500, L100.0100 #### [facility] [address] [place], [address] EST GFR - AA 95 mL/min Normal >60 [facility] Comment on above: Result Comment: Afri can Ethiopian GFR Calc Performed By: #### L 500.2500, L100.0100 #### [facility] [address] [place], [address] GAP 7 Normal 5-15 [facility] Comment on above: Performed By: #### L 500.2500, L100.0100 #### [facility] [address] [place], [address] GFR/1.73 sq M.predicted among non-blacks MDRD (S/P/Bld) [Vol rate/Area] 78 mL/min/{1.73_m2} Normal >60 [facility] Comment on above: Result Comment: Non- GFR Calc Performed By: #### L 500.2500, L100.0100 #### [facility] [address] [place], [address] Globulin (S) [Mass/Vol] 5.2 g/dL High 2.2-4.2 [facility] Comment on above: Performed By: #### L 500.2500, L100.0100 #### [facility] [address] [place], [address] Glucose [Mass/Vol] 177 mg/dL High 74-106 [facility] Comment on above: Result Comment: Fast ing Glucose result greater than or equal to 126 mg/dL suggests DIABETES MELLITUS per A.D.A. criteria. Performed By: #### L 500.2500, L100.0100 #### [facility] [address] [place], [address] Potassium [Moles/Vol] 4.2 mmol/L Normal 3.5-5.1 [facility] Comment on above: Performed By: #### L 500.2500, L100.0100 #### [facility] [address] [place], [address] Sodium [Moles/Vol] 137 mmol/L Normal 136-145 [facility] Comment on above: Performed By: #### L 500.2500, L100.0100 #### [facility] [address] [place], [address] T PROT 8.5 g/dL High 6.4-8.2 [facility] Comment on above: Performed By: #### L 500.2500, L100.0100 #### [facility] [address] [place], [address] Urea nitrogen [Mass/Vol] 12 mg/dL Normal 7-18 [facility] Comment on above: Performed By: #### L 500.2500, L100.0100 #### [facility] [address] [place], [address] Lipid Profileon 04-25-2024 Cholesterol [Mass/Vol] 209 mg/dL High 200 [facility] Comment on above: Result Comment: <200 mg/dL Desirable 200-240 mg/dL Borderline >240 mg/dL High Risk Performed By: #### L 500.2500, L100.0100 #### [facility] [address] [place], [address] Cholesterol in HDL [Mass/Vol] 37 mg/dL Low [facility] Comment on above: Result Comment: The drugs N-Acetylcysteine and Metamizole may falsely depress this assay. Reference Range HDL <40 mg/dL Low HDL Cholesterol HDL >or= 60 mg/dL High HDL Cholesterol Performed By: #### L 500.2500, L100.0100 #### [facility] [address] [place], [address] Cholesterol in LDL [Mass/Vol] 127 mg/dL Normal 0-130 [facility] Comment on above: Performed By: #### L 500.2500, L100.0100 #### [facility] [address] [place], [address] Cholesterol in VLDL [Mass/Vol] 45 mg/dL High 5-40 [facility] Comment on above: Performed By: #### L 500.2500, L100.0100 #### [facility] [address] [place], [address] Triglyceride [Mass/Vol] 227 mg/dL High [facility] Comment on above: Result Comment: The drugs N-Acetylcysteine and Metamizole may falsely depress this assay. Serum Triglycerides Reference Interval Normal <150 mg/dL Borderline high 150 - 199 mg/dL High 200 - 499 mg/dL Very High > or = 500 mg/dL Performed By: #### L 500.2500, L100.0100 #### [facility] [address] [place], [address] Microalbumin,Random Urineon 04-25-2024 MICROALBUMIN,UR 147.0 mg/L Normal NO RANGE EST. [facility] Comment on above: Performed By: #### L 500.2500, L100.0100 #### [facility] [address] [place], [address] Thyroid Stim Hormone (TSH)on 04-25-2024 TSH 0.825 uIU/mL Normal 0.358-3.740 [facility] Comment on above: Performed By: #### L 500.2500, L100.0100 #### [facility] [address] [place], [address] Fungus cultureOrdered By: Neva Forrest on 07-23-2023 Fungus identified Cx Nom (Unsp spec) [facility] Fungus stainOrdered By: Jonas Forrest on 07-23-2023 Fungus identified Fungus stain Nom (Unsp spec) [facility] Glucose Glucometer (BldC) [M ass/Vol]Ordered By: Abdirizak Forrest on 07-23-2023 Glucose [Mass/Vol] 204 mg/dL 74-106 [facility] Comment on above: MANAGEMENT OF PATIEN T CARE PER NURSING PROTOCOL Laboratory - Chemistry and C hemistry - challengeOrdered By: Abdirahman Morton on 07-23-2023 HCG ( test) Ql (U) Negative [facility] Comment on above: Very dilute urine sp ecimens, as indicated by a low specificgravity, may not contain traveling representative levels of hCG. If is still suspected, a first morning urinespecimen should be collected 48 hours later and tested. No Panel InformationOrdered By: Abdirahman Morton on 07-23-2023 Negative [facility] Laboratory - Chemistry and C hemistry - challengeOrdered By: Abdirahman Morton on 07-16-2023 Magnesium [Mass/Vol] 2.0 mg/dL 1.6-2.6 [facility] No Panel InformationOrdered By: Abdirahman Morton on 07-16-2023 2.0 mg/dL 1.6-2.6 [facility] 25(OH)D3 SerPl-mCncon 2023 25-hydroxyvitamin D3 [Mass/Vol] 9.5 ng/mL Low 31.0-80.0 [facility] Comment on above: Order Comment: Speci men Type: BLOOD SPECIMEN Ordering Facility: [facility] Address: [facility] [facility], [place] [address] Result Comment: Clas sification of 25 [place] Vitamin D status: Deficiency/Insufficiency: < or = 30 ng/ml. Sufficiency/Optimal Levels: 31-80 ng/mL Toxicity: > 100 ng/mL. Test performed by chemiluminescent immunoassay. Performed By: #### 1 989-3 #### [facility] CLIA [id number] [address] [place] [address] [place] CBC panel Auto (Bld)on 07-14 Erythrocyte distribution width (RBC) [Ratio] 13.2 % Normal 11.5-15.0 [facility] Comment on above: Order Comment: Speci men Type: BLOOD SPECIMEN Ordering Facility: [facility] Address: [address] [place] [address] Performed By: #### 5 8410-2 #### [facility] CLIA [id number] [address] [place] [address] [place] Hematocrit (Bld) [Volume fraction] 41.9 % Normal 36.0-46.0 [facility] Comment on above: Order Comment: Speci men Type: BLOOD SPECIMEN Ordering Facility: [facility] Address: [address] [place] [address] Performed By: #### 5 8410-2 #### [facility] [place] [id number] [address] [place] [address] [place] Hemoglobin (Bld) [Mass/Vol] 12.8 g/dL Normal 11.5-15.5 [facility] Comment on above: Order Comment: Speci men Type: BLOOD SPECIMEN Ordering Facility: [facility] Address: [address] [place] [address] Performed By: #### 5 8410-2 #### [facility] [place] [id number] [address] [place] [address] [place] MCH (RBC) [Entitic mass] 26.1 pg Normal 26.0-34.0 [facility] Comment on above: Order Comment: Speci men Type: BLOOD SPECIMEN Ordering Facility: [facility] Address: [address] [place] [address] Performed By: #### 5 8410-2 #### [facility] [place] [id number] [address] [place] [address] [place] MCHC (RBC) [Mass/Vol] 30.5 g/dL Normal 30.5-36.0 [facility] Comment on above: Order Comment: Speci men Type: BLOOD SPECIMEN Ordering Facility: [facility] Address: [address] [place] [address] Performed By: #### 5 8410-2 #### [facility] CLIA [id number] [address] [place] [address] [place] MCV (RBC) [Entitic vol] 85.3 fL Normal 80.0-100.0 [facility] Comment on above: Order Comment: Speci men Type: BLOOD SPECIMEN Ordering Facility: [facility] Address: [address] [place] [address] Performed By: #### 5 8410-2 #### [facility] CLIA [id number] [address] [place] [address] [place] Nucleated RBC (Bld) [#/Vol] 10*3/uL Normal <0.01 [facility] Comment on above: Order Comment: Speci men Type: BLOOD SPECIMEN Ordering Facility: [facility] Address: [address] [place] [address] Performed By: #### 5 8410-2 #### [facility] CLIA [id number] [address] [place] [address] [place] Platelet mean volume (Bld) [Entitic vol] 10.0 fL Normal 9.0-12.7 [facility] Comment on above: Order Comment: Speci men Type: BLOOD SPECIMEN Ordering Facility: [facility] Address: [address] [place] [address] Performed By: #### 5 8410-2 #### [facility] CLIA [id number] [address] [place] [address] [place] Platelets (Bld) [#/Vol] 417 10*3/uL High 150-400 [facility] Comment on above: Order Comment: Speci men Type: BLOOD SPECIMEN Ordering Facility: [facility] Address: [address] [place] [address], [place] [address] Performed By: #### 5 8410-2 #### [facility] CLIA [id number] [address] [place] [address] [place] RBC (Bld) [#/Vol] 4.91 10*6/uL Normal 3.90-5.20 [facility] Comment on above: Order Comment: Speci men Type: BLOOD SPECIMEN Ordering Facility: [facility] Address: [address] [place] [address], [place] [address] Performed By: #### 5 8410-2 #### [facility] CLIA [id number] [address] [place] [address] [place] WBC (Bld) [#/Vol] 7.59 10*3/uL Normal 3.70-11.00 [facility] Comment on above: Order Comment: Speci men Type: BLOOD SPECIMEN Ordering Facility: [facility] Address: [address] [place] [address], [place] [address] Performed By: #### 5 8410-2 #### [facility] CLIA [id number] [address] [place] [address] [place] Comprehensive metabolic 2000 panelon 07-14-2023 Albumin [Mass/Vol] 4.0 g/dL Normal 3.9-4.9 [facility] Comment on above: Order Comment: Speci men Type: BLOOD SPECIMEN Ordering Facility: [facility] Address: [address] [place] [address] Performed By: #### 3 016-3, 93347-6 #### [facility] CLIA [id number] [address] [place] [address] [place] ALP [Catalytic activity/Vol] 106 U/L Normal 34-123 [facility] Comment on above: Order Comment: Speci men Type: BLOOD SPECIMEN Ordering Facility: [facility] Address: [address], [place] [address] Performed By: #### 3 016-3, 83957-1 #### [facility] CLIA [id number] [address] [place] [address] [place] ALT [Catalytic activity/Vol] 11 U/L Normal 7-38 [facility] Comment on above: Order Comment: Speci men Type: BLOOD SPECIMEN Ordering Facility: [facility] Address: [facility], [place] [address] Performed By: #### 3 -3, #### [facility] CLIA [id number] [address] [place] [address] [place] Anion gap [Moles/Vol] 14 mmol/L Normal 9-18 [facility] Comment on above: Order Comment: Speci men Type: BLOOD SPECIMEN Ordering Facility: [facility] Address: [address] [place] [address], [place] [address] Performed By: #### 3 3, 41672-1 #### [facility] CLIA [id number] [address] [place] [address] [place] AST [Catalytic activity/Vol] 13 U/L Normal 13-35 [facility] Comment on above: Order Comment: Speci men Type: BLOOD SPECIMEN Ordering Facility: [facility] Address: [address] [place] [address], [place] [address] Performed By: #### 3 3, #### [facility] CLIA [id number] [address] [place], [place] [id number] [place] Bilirubin [Mass/Vol] 0.3 mg/dL Normal 0.2-1.3 [facility] Comment on above: Order Comment: Speci men Type: BLOOD SPECIMEN Ordering Facility: [facility] Address: [address] [place] [address], [place] [address] Performed By: #### 3 016-3, 06716-1 #### [facility] CLIA [id number] [address] [id number] [place] Calcium [Mass/Vol] 9.6 mg/dL Normal 8.5-10.2 [facility] Comment on above: Order Comment: Speci men Type: BLOOD SPECIMEN Ordering Facility: [facility] Address: [address] [place] [address], [place] [address] Performed By: #### 3 016-3, 41829-9 #### [facility] CLIA [id number] [address] [id number] [place] Chloride [Moles/Vol] 101 mmol/L Normal 97-105 [facility] Comment on above: Order Comment: Speci men Type: BLOOD SPECIMEN Ordering Facility: [facility] Address: [address] [place] [address], [place] [address] Performed By: #### 3 3, 18952-3 #### [facility] CLIA [id number] [address] [place] [address] [place] CO2 [Moles/Vol] 23 mmol/L Normal 22-30 [facility] Comment on above: Order Comment: Speci men Type: BLOOD SPECIMEN Ordering Facility: [facility] Address: [address] [place] [address], [place] [address] Performed By: #### 3 016-3, 85656-0 #### [facility] CLIA [id number] [address] [place] [id number] [place] Creatinine [Mass/Vol] 0.69 mg/dL Normal 0.58-0.96 [facility] Comment on above: Order Comment: Speci men Type: BLOOD SPECIMEN Ordering Facility: [facility] Address: [address] [place] [address], [place] [address] Performed By: #### 3 016-3, 20316-0 #### [facility] CLIA [id number] [address] [id number] [place] Creatinine and Glomerular filtration rate.predicted panel (S/P/Bld) 119 mL/min/1.73m??? Normal >=60 [facility] Comment on above: Order Comment: Mahogany vargas Type: BLOOD SPECIMEN Ordering Facility: [facility] Address: [address] [place] [address], [place] [address] Result Comment: Samreen mated Glomerular Filtration Rate [...] actual GFR. Performed By: #### 3 016-3, 33795-1 #### [facility] CLIA [id number] [address] [place] [address] [place] Glucose [Mass/Vol] 158 mg/dL High 74-99 [facility] Comment on above: Order Comment: Mahogany vargas Type: BLOOD SPECIMEN Ordering Facility: [facility] Address: [address] [place] [address], [place] [address] Result Comment: The [place] Diabetes Association (ADA) provides guidance for cutoff [...] Standards of Medical Care in Diabetes 2016, [place] Diabetes Association. Diabetes Care. 2016.39(Suppl 1). Performed By: #### 3 016-3, 99443-9 #### [facility] CLIA [id number] [address] [place], [place] [id number] [place] Potassium [Moles/Vol] 4.4 mmol/L Normal 3.7-5.1 [facility] Comment on above: Order Comment: Speci men Type: BLOOD SPECIMEN Ordering Facility: [facility] Address: [address] [facility], [place] [address] Performed By: #### 3 016-3, #### [facility] CLIA [id number] [address] [place] [address] [place] Protein [Mass/Vol] 7.5 g/dL Normal 6.3-8.0 [facility] Comment on above: Order Comment: Speci men Type: BLOOD SPECIMEN Ordering Facility: [facility] Address: [address] [place] [address], [place] [address] Performed By: #### 3 016-3, 76289-2 #### [facility] CLIA [id number] [address] [place] [address] [place] Sodium [Moles/Vol] 138 mmol/L Normal 136-144 [facility] Comment on above: Order Comment: Speci men Type: BLOOD SPECIMEN Ordering Facility: [facility] Address: [address] [place] [address], [place] [address] Performed By: #### 3 016-3, 58817-7 #### [facility] CLIA [id number] [address] [place] [address] [place] Urea nitrogen [Mass/Vol] 9 mg/dL Normal 7-21 [facility] Comment on above: Order Comment: Speci men Type: BLOOD SPECIMEN Ordering Facility: [facility] Address: [address] [place] [address], [place] [address] Performed By: #### 3 016-3, 62079-6 #### [facility] CLIA [id number] [address] [place] [address] [place] HbA1c (Bld)on 07-14-2023 Average glucose Estimated from glycated hemoglobin (Bld) [Mass/Vol] 163 mg/dL Normal [facility] Comment on above: Order Comment: Speci men Type: BLOOD SPECIMEN Ordering Facility: [facility] Address: [address] [place] [address] Result Comment: eAG: (Estimated average glucose) is a calculated value from HgbA1c and is traveling representative of the average blood glucose level in the last 2-3 month period. Performed By: #### 5 5454-3 #### [facility] CLIA [id number] [address] [place] [address] [place] HbA1c (Bld) [Mass fraction] 7.3 % High 4.3-5.6 [facility] Comment on above: Order Comment: Mahogany alicia Type: BLOOD SPECIMEN Ordering Facility: [facility] Address: [address] [place] [address] Result Comment: [place] Diabetes Association guidelines indicate that patients with HgbA1c in the range 5.7-6.4% are at increased risk for development of diabetes, and intervention by lifestyle modification may be beneficial. HgbA1c greater or equal to 6.5% is considered diagnostic of diabetes. Performed By: #### 5 5454-3 #### [facility] CLIA [id number] [address] [place] [address] [place] TSH SerPl-aCncon 07-14-2023 TSH Qn 0.660 m[IU]/L Normal 0.270-4.200 [facility] Comment on above: Order Comment: Mahogany alicia Type: BLOOD SPECIMEN Ordering Facility: [facility] Address: [address] [place] [address] Result Comment: If t he patient is , TSH reference range varies by gestational period: First Trimester (weeks 9-12): 0.180-2.990 mIU/L Second Trimester: 0.110-3.980 mIU/L Third Trimester: 0.480-4.710 mIU/L Francois Matthews et al. A Practical Approach for the Verifications and Determination of Site- and Trimester-Specific Reference Intervals for Thyroid Function tests in . Thyroid, 2019:29:3:412-420. Emeka E, et al. 2017 Guidelines of the [place] Thyroid Association for the Diagnosis and Management of Thyroid Disease during and the . Thyroid, 2017:27:3:315-389. Performed By: #### 3 016-3, 43207-2 #### [facility] CLIA [id number] [address] [place] [address] [place] Absolute lymphocyte countOrd ered By: Willie Dhillon on 07-12-2023 Lymphocytes Auto (Unsp spec) [#/Vol] 4.46 10*3/uL 0.83-4.51 [facility] Basophil percentageOrdered B y: Willie Dhillon on 07-12-2023 Basophil percentage 5-10 SEEN /hpf 0-5 [facility] Basophil percentage 177 mg/dL 74-106 [facility] Basophil percentage 9.0 g/dL 6.4-8.2 [facility] Basophil percentage 0.60 mg/dL 0.20-1.00 [facility] Basophil percentage 136 mmol/L 136-145 [facility] Basophil percentage 4.2 mmol/L 3.5-5.1 [facility] Basophil percentage 100 mmol/L 98-107 [facility] Basophils (Bld) [#/Vol] 10.5 10*3/uL 4.4-11.0 [facility] Basophils (Bld) [#/Vol] 5.4 10*3/uL 2.0-7.7 [facility] Basophils/100 WBC (Bld) 51.3 % 47-70 [facility] Basophils/100 WBC (Bld) 0.3 % 0-5 [facility] Basophils/100 WBC (Bld) 0.4 % 0-1 [facility] Beta hCG serum qualOrdered B y: Willie Dhillon on 07-12-2023 Beta HCG ( test) Ql Negative [facility] Bilirubin Test strip Ql (U)O rdered By: Willie Dhillon on 07-12-2023 Bilirubin Ql (U) 1 mg/dL Negative [facility] Blood erythrocytes count (nu mber/volume)Ordered By: Willie Dhillon on 07-12-2023 RBC (Bld) [#/Vol] 5.20 10*6/uL 4.2-5.4 [facility] Blood hemoglobin measurement (mass/volume)Ordered By: Willie Dhillon on 07-12-2023 Hemoglobin (Bld) [Mass/Vol] 13.6 g/dL 12.0-15.0 [facility] Blood lymphocytes/100 leukoc ytesOrdered By: Willie Dhillon on 07-12-2023 Lymphocytes/100 WBC (Bld) 42.6 % 19-41 [facility] Blood monocytes/100 leukocyt esOrdered By: Willie Dhillon on 07-12-2023 Monocytes/100 WBC (Bld) 5.2 % 0-10 [facility] Blood platelet mean volumeOr dered By: Willie Dhillon on 07-12-2023 Platelet mean volume (Bld) [Entitic vol] 9.2 fL 6.2-12.0 [facility] Determination of erythrocyte mean corpuscular volume (MCV)Ordered By: Willie Dhillon on 07-12-2023 MCV (RBC) [Entitic vol] 82.7 fL 81-99 [facility] Hematocrit Auto (Bld) [Volum e fraction]Ordered By: Willie Dhillon on 07-12-2023 Hematocrit (Bld) [Volume fraction] 43.0 % 37-47 [facility] Ketones Test strip Ql (U)Ord ered By: Willie Dhillon on 07-12-2023 Ketones Ql (U) 5 mg/dl Negative [facility] MCHC Auto (RBC) [Mass/Vol]Or dered By: Willie Dhillon on 07-12-2023 MCHC (RBC) [Mass/Vol] 31.6 g/dL 32-36 [facility] Mucus LM Ql (Urine sed)Order ed By: Willie Dhillon on 07-12-2023 Mucus Ql (Urine sed) 0 SEEN /hpf [facility] Nitrite Test strip Ql (U)Ord ered By: Willie Dhillon on 07-12-2023 Nitrite Ql (U) Negative Negative [facility] No Panel InformationOrdered By: Willie Dhillon on 07-12-2023 26.2 pg 27.0-32.0 [facility] 13.3 % 11.6-14.6 [facility] 39.8 fl 35.1-43.9 [facility] 0.200 % 0.0-0.9 [facility] 0 % 0-5 [facility] 68 mL/min >60 [facility] 82 mL/min >60 [facility] 75.55 ml/min [facility] 12.9 RATIO 10-20 [facility] 5.4 g/dL 2.2-4.2 [facility] 30 U/L 13-75 [facility] 112 U/L 45-117 [facility] 12 U/L 13-56 [facility] 28.0 mmol/L 21.0-32.0 [facility] Negative < 50 ng/mL [facility] Positive < 500 ng/mL [facility] Platelets bldOrdered By: Heath Dhillon on 07-12-2023 Platelets (Bld) [#/Vol] 459 10*3/uL 150-450 [facility] Protein Test strip Ql (U)Ord ered By: Willie Dhillon on 07-12-2023 Protein Ql (U) 30 mg/dl Negative [facility] Serum or plasma albumin hussein urement (mass/volume)Ordered By: Willie Dhillon on 07-12-2023 Albumin [Mass/Vol] 3.6 g/dL 3.2-5.0 [facility] Serum or plasma albumin/glob ulin mass ratioOrdered By: Willie Dhillon on 07-12-2023 Albumin/Globulin [Mass ratio] 0.7 {ratio} 0.9-2.4 [facility] Serum or plasma calcium hussein urement (mass/volume)Ordered By: Willie Dhillon on 07-12-2023 Calcium [Mass/Vol] 9.3 mg/dL 8.5-10.1 [facility] Serum or plasma creatinine m easurement (mass/volume)Ordered By: Willie Dhillon on 07-12-2023 Creatinine [Mass/Vol] 1.01 mg/dL 0.55-1.02 [facility] Serum or plasma urea nitroge n measurement (mass/volume)Ordered By: Willie Dhillon on 07-12-2023 Urea nitrogen [Mass/Vol] 13 mg/dL 7-18 [facility] Squamous epithelial cells de tection in urine sediment by light microscopyOrdered By: Willie Dhillon on 07-12-2023 Epithelial cells.squamous LM Ql (Urine sed) 10-25 SEEN /hpf 5-10 [facility] Thin prep Papanicolaou smear with manual screeningOrdered By: Willie Dhillon on 07-12-2023 Thin prep Papanicolaou smear with manual screening 21 U/L 15-37 [facility] Thin prep Papanicolaou smear with manual screening 8 5-15 [facility] Urine blood detectionOrdered By: Willie Dhillon on 07-12-2023 RBC Ql (U) 10 /ul Negative [facility] RBC Ql (U) 0-5 SEEN /hpf 0-5 [facility] Urine clarityOrdered By: Heath Dhillon on 07-12-2023 Clarity (U) Cloudy Clear [facility] Urine color determinationOrd ered By: Willie Dhillon on 07-12-2023 Color (U) Yellow Yellow [facility] Urine glucose detectionOrder ed By: Willie Dhillon on 07-12-2023 Glucose Ql (U) Normal mg/dl Normal [facility] Urine leukocyte esterase det ection by dipstickOrdered By: Willie Dhillon on 07-12-2023 Leukocyte esterase Test strip Ql (U) 100 /ul Negative [facility] Urine pHOrdered By: Willie mo on 07-12-2023 pH (U) 7.0 [pH] 5.0 - 8.0 [facility] Urine phencyclidine (PCP) de tectionOrdered By: Willie Dhillon on 07-12-2023 Phencyclidine Ql (U) Negative < 25 ng/mL [facility] Urine sediment bacteria coun t by microscopy (number/high power field)Ordered By: Willie Dhillon on 07-12-2023 Bacteria LM.HPF (Urine sed) [#/Area] 2 /[HPF] None Seen [facility] Urine specific gravity measu rementOrdered By: Willie Dhillon on 07-12-2023 Specific gravity (U) [Rel density] 1.010 1.002-1.030 [facility] Urobilinogen Auto test strip Ql (U)Ordered By: Willie Dhillon on 07-12-2023 Urobilinogen Ql (U) 1 mg/dl Normal [facility] Absolute lymphocyte countOrd ered By: Alex Christiansen on 06-30-2023 Lymphocytes Auto (Unsp spec) [#/Vol] 2.97 10*3/uL 0.83-4.51 [facility] Basophil percentageOrdered B y: Alex Christiansen on 06-30-2023 Basophil percentage 201 mg/dL 74-106 [facility] Basophil percentage 8.0 g/dL 6.4-8.2 [facility] Basophil percentage 0.50 mg/dL 0.20-1.00 [facility] Basophil percentage 137 mmol/L 136-145 [facility] Basophil percentage 3.3 mmol/L 3.5-5.1 [facility] Basophil percentage 103 mmol/L 98-107 [facility] Basophils (Bld) [#/Vol] 9.9 10*3/uL 4.4-11.0 [facility] Basophils (Bld) [#/Vol] 6.2 10*3/uL 2.0-7.7 [facility] Basophils/100 WBC (Bld) 62.9 % 47-70 [facility] Basophils/100 WBC (Bld) 0.1 % 0-5 [facility] Basophils/100 WBC (Bld) 0.5 % 0-1 [facility] Blood erythrocytes count (nu mber/volume)Ordered By: Alex Christiansen on 06-30-2023 RBC (Bld) [#/Vol] 4.56 10*6/uL 4.2-5.4 [facility] Blood hemoglobin measurement (mass/volume)Ordered By: Alex Christiansen on 06-30-2023 Hemoglobin (Bld) [Mass/Vol] 12.2 g/dL 12.0-15.0 [facility] Blood lymphocytes/100 leukoc ytesOrdered By: Alex Christiansen on 06-30-2023 Lymphocytes/100 WBC (Bld) 30.0 % 19-41 [facility] Blood monocytes/100 leukocyt esOrdered By: Alex Christiansen on 06-30-2023 Monocytes/100 WBC (Bld) 6.1 % 0-10 [facility] Blood platelet mean volumeOr dered By: Alex Christiansen on 06-30-2023 Platelet mean volume (Bld) [Entitic vol] 9.0 fL 6.2-12.0 [facility] Determination of erythrocyte mean corpuscular volume (MCV)Ordered By: Alex Christiansen on 12-20-2023 MCV (RBC) [Entitic vol] 84.0 fL 81-99 [facility] Hematocrit Auto (Bld) [Volum e fraction]Ordered By: Alex Christiansen on 06-30-2023 Hematocrit (Bld) [Volume fraction] 38.3 % 37-47 [facility] MCHC Auto (RBC) [Mass/Vol]Or dered By: Alex Christiansen on 06-30-2023 MCHC (RBC) [Mass/Vol] 31.9 g/dL 32-36 [facility] No Panel InformationOrdered By: Alex Christiansen on 06-30-2023 26.8 pg 27.0-32.0 [facility] 13.6 % 11.6-14.6 [facility] 41.9 fl 35.1-43.9 [facility] 0.400 % 0.0-0.9 [facility] 0 % 0-5 [facility] 81 mL/min >60 [facility] 98 mL/min >60 [facility] 88.73 ml/min [facility] 10.4 RATIO 10-20 [facility] 4.6 g/dL 2.2-4.2 [facility] 22 U/L 13-75 [facility] 114 U/L 45-117 [facility] 11 U/L 13-56 [facility] 26.0 mmol/L 21.0-32.0 [facility] Platelets bldOrdered By: Milton Christiansen on 06-30-2023 Platelets (Bld) [#/Vol] 437 10*3/uL 150-450 [facility] Serum or plasma albumin hussein urement (mass/volume)Ordered By: Alex Christiansen on 06-30-2023 Albumin [Mass/Vol] 3.4 g/dL 3.2-5.0 [facility] Serum or plasma albumin/glob ulin mass ratioOrdered By: Alex Christiansen on 06-30-2023 Albumin/Globulin [Mass ratio] 0.7 {ratio} 0.9-2.4 [facility] Serum or plasma calcium hussein urement (mass/volume)Ordered By: Alex Christiansen on 06-30-2023 Calcium [Mass/Vol] 9.4 mg/dL 8.5-10.1 [facility] Serum or plasma creatinine m easurement (mass/volume)Ordered By: Alex Christiansen on 06-30-2023 Creatinine [Mass/Vol] 0.86 mg/dL 0.55-1.02 [facility] Serum or plasma urea nitroge n measurement (mass/volume)Ordered By: Alex Christiansen on 06-30-2023 Urea nitrogen [Mass/Vol] 9 mg/dL 7-18 [facility] Thin prep Papanicolaou smear with manual screeningOrdered By: Alex Christiansen on 06-30-2023 Thin prep Papanicolaou smear with manual screening 7 U/L 15-37 [facility] Thin prep Papanicolaou smear with manual screening 8 5-15 [facility] Absolute lymphocyte countOrd ered By: Drew Hinson on 06-28-2023 Lymphocytes Auto (Unsp spec) [#/Vol] 2.31 10*3/uL 0.83-4.51 [facility] Basophil percentageOrdered B y: Drew Hinson on 06-28-2023 Basophil percentage 0-5 SEEN /hpf 0-5 [facility] Basophil percentage 221 mg/dL 74-106 [facility] Basophil percentage 9.3 g/dL 6.4-8.2 [facility] Basophil percentage 0.60 mg/dL 0.20-1.00 [facility] Basophil percentage 136 mmol/L 136-145 [facility] Basophil percentage 3.2 mmol/L 3.5-5.1 [facility] Basophil percentage 102 mmol/L 98-107 [facility] Basophils (Bld) [#/Vol] 9.2 10*3/uL 4.4-11.0 [facility] Basophils (Bld) [#/Vol] 6.4 10*3/uL 2.0-7.7 [facility] Basophils/100 WBC (Bld) 0.5 % 0-1 [facility] Basophils/100 WBC (Bld) 69.1 % 47-70 [facility] Basophils/100 WBC (Bld) 0.1 % 0-5 [facility] Bilirubin [Mass/Vol] 0.60 mg/dL 0.20-1.00 [facility] Comment on above: For patients on eltr ombopag therapy, use of Dimension [place] TBIL is not recommended. Chloride [Moles/Vol] 102 mmol/L 98-107 [facility] Eosinophils/100 WBC (Bld) 0.1 % 0-5 [facility] Glucose [Mass/Vol] 221 mg/dL 74-106 [facility] Comment on above: Glucose result great er than or equal to 200 mg/dLsuggests DIABETES MELLITUS per A.D.A. criteria. Neutrophils (Bld) [#/Vol] 6.4 10*3/uL 2.0-7.7 [facility] Neutrophils/100 WBC (Bld) 69.1 % 47-70 [facility] Potassium [Moles/Vol] 3.2 mmol/L 3.5-5.1 [facility] Protein [Mass/Vol] 9.3 g/dL 6.4-8.2 [facility] Sodium [Moles/Vol] 136 mmol/L 136-145 [facility] WBC (Bld) [#/Vol] 9.2 10*3/uL 4.4-11.0 [facility] Bilirubin Test strip Ql (U)O rdered By: Drew Hinson on 06-28-2023 Bilirubin Ql (U) 1 mg/dL Negative [facility] Comment on above: COLOR OF URINE MAY A FFECT DIPSTICK RESULTS. Blood erythrocytes count (nu mber/volume)Ordered By: Drew Hinson on 06-28-2023 RBC (Bld) [#/Vol] 4.85 10*6/uL 4.2-5.4 [facility] Blood hemoglobin measurement (mass/volume)Ordered By: Drew Hinson on 06-28-2023 Hemoglobin (Bld) [Mass/Vol] 13.0 g/dL 12.0-15.0 [facility] Blood lymphocytes/100 leukoc ytesOrdered By: Drew Hinson on 06-28-2023 Lymphocytes/100 WBC (Bld) 25.1 % 19-41 [facility] Blood monocytes/100 leukocyt esOrdered By: Drew Hinson on 06-28-2023 Monocytes/100 WBC (Bld) 4.8 % 0-10 [facility] Blood platelet mean volumeOr dered By: Drew Hinson on 06-28-2023 Platelet mean volume (Bld) [Entitic vol] 8.9 fL 6.2-12.0 [facility] Determination of erythrocyte mean corpuscular volume (MCV)Ordered By: Drew Hinson on 06-28-2023 MCV (RBC) [Entitic vol] 83.7 fL 81-99 [facility] Hematocrit Auto (Bld) [Volum e fraction]Ordered By: Drew Hinson on 06-28-2023 Hematocrit (Bld) [Volume fraction] 40.6 % 37-47 [facility] Ketones Test strip Ql (U)Ord ered By: Drew Hinson on 06-28-2023 Ketones Ql (U) 50 mg/dl Negative [facility] Laboratory - Chemistry and C hemistry - challengeOrdered By: Drew Hinson on 06-28-2023 ALP [Catalytic activity/Vol] 128 U/L 45-117 [facility] ALT [Catalytic activity/Vol] 13 U/L 13-56 [facility] [facility] CO[facility] [Moles/Vol] 25.0 mmol/L 21.0-32.0 [facility] Globulin (S) [Mass/Vol] 5.4 g/dL 2.2-4.2 [facility] Lipase [Catalytic activity/Vol] 28 U/L 13-75 [facility] Comment on above: Please note:LIPASE r evised reference range effective 22. New Lipase methodology. Expected to produce lower values than the previous assay method. NEW Reference Range: 13 - 75 U/L Urea nitrogen/Creatinine [Mass ratio] 11.7 mg/mg 10-20 [facility] Laboratory - Hematology and Cell countsOrdered By: Drew Hinson on 06-28-2023 Erythrocyte distribution width (RBC) [Entitic vol] 41.7 fL 35.1-43.9 [facility] Erythrocyte distribution width (RBC) [Ratio] 13.6 % 11.6-14.6 [facility] Immature granulocytes/100 WBC (Bld) 0.400 % 0.0-0.9 [facility] Comment on above: IG% - Immature Granu locytes (promyelocytes, myelocytes and metamyelocytes) > 1% indicates that a LEFT SHIFT is Present. MCH (RBC) [Entitic mass] 26.8 pg 27.0-32.0 [facility] Nucleated RBC/100 WBC (Bld) [Ratio] 0 % 0-5 [facility] MCHC Auto (RBC) [Mass/Vol]Or dered By: Drew Hinson on 06-28-2023 MCHC (RBC) [Mass/Vol] 32.0 g/dL 32-36 [facility] Mucus LM Ql (Urine sed)Order ed By: Drew Hinson on 06-28-2023 Mucus Ql (Urine sed) 1+ /hpf [facility] Nitrite Test strip Ql (U)Ord ered By: Drew Hinson on 06-28-2023 Nitrite Ql (U) Negative Negative [facility] No Panel InformationOrdered By: Drew Hinson on 06-28-2023 Estimated Creatinine Clearance Calc 81.18 ml/min [facility] Estimated GFR (MDRD) Amer 89 mL/min >60 [facility] Comment on above: GFR Calc Estimated GFR (MDRD) Non-Af Amer 74 mL/min >60 [facility] Comment on above: Non- GFR Calc 26.8 pg 27.0-32.0 [facility] 13.6 % 11.6-14.6 [facility] 41.7 fl 35.1-43.9 [facility] 0.400 % 0.0-0.9 [facility] 0 % 0-5 [facility] 74 mL/min >60 [facility] 89 mL/min >60 [facility] 81.18 ml/min [facility] 11.7 RATIO 10-20 [facility] 5.4 g/dL 2.2-4.2 [facility] 28 U/L 13-75 [facility] 128 U/L 45-117 [facility] 13 U/L 13-56 [facility] 25.0 mmol/L 21.0-32.0 [facility] Platelets bldOrdered By: Dwight Hinson on 06-28-2023 Platelets (Bld) [#/Vol] 491 10*3/uL 150-450 [facility] Protein Test strip Ql (U)Ord ered By: Drew Hinson on 06-28-2023 Protein Ql (U) 30 mg/dl Negative [facility] Serum or plasma albumin hussein urement (mass/volume)Ordered By: Drew Hinson on 06-28-2023 Albumin [Mass/Vol] 3.9 g/dL 3.2-5.0 [facility] Serum or plasma albumin/glob ulin mass ratioOrdered By: Drew Hinson on 06-28-2023 Albumin/Globulin [Mass ratio] 0.7 {ratio} 0.9-2.4 [facility] Serum or plasma calcium hussein urement (mass/volume)Ordered By: Drew Hinson on 06-28-2023 Calcium [Mass/Vol] 9.6 mg/dL 8.5-10.1 [facility] Serum or plasma creatinine m easurement (mass/volume)Ordered By: Drew Hinson on 06-28-2023 Creatinine [Mass/Vol] 0.94 mg/dL 0.55-1.02 [facility] Comment on above: The validity of the calculated GFR & GFRAA in patients over 70 years has not been determined. Clinical correlation is essential. Serum or plasma urea nitroge n measurement (mass/volume)Ordered By: Drew Hinson on 06-28-2023 Urea nitrogen [Mass/Vol] 11 mg/dL 7-18 [facility] Squamous epithelial cells de tection in urine sediment by light microscopyOrdered By: Drew Hinson on 06-28-2023 Epithelial cells.squamous LM Ql (Urine sed) 5-10 SEEN /hpf 5-10 [facility] Thin prep Papanicolaou smear with manual screeningOrdered By: Drew Hinson on 06-28-2023 Thin prep Papanicolaou smear with manual screening 11 U/L 15-37 [facility] Thin prep Papanicolaou smear with manual screening 9 5-15 [facility] Urine blood detectionOrdered By: Drew Hinson on 06-28-2023 RBC Ql (U) 25 /ul Negative [facility] RBC Ql (U) 0-5 SEEN /hpf 0-5 [facility] Urine clarityOrdered By: Dwight Hinson on 06-28-2023 Clarity (U) Cloudy Clear [facility] Urine color determinationOrd ered By: Drew Hinson on 06-28-2023 Color (U) Yellow Yellow [facility] Urine glucose detectionOrder ed By: Drew Hinson on 06-28-2023 Glucose Ql (U) 50 mg/dl Normal [facility] Urine leukocyte esterase det ection by dipstickOrdered By: Drew Hinson on 06-28-2023 Leukocyte esterase Test strip Ql (U) 25 /ul Negative [facility] Urine pHOrdered By: Drew castellanos on 06-28-2023 pH (U) 6.0 [pH] 5.0 - 8.0 [facility] Urine sediment bacteria coun t by microscopy (number/high power field)Ordered By: Drew Hinson on 06-28-2023 Bacteria LM.HPF (Urine sed) [#/Area] 2 /[HPF] None Seen [facility] Urine specific gravity measu rementOrdered By: Drew Hinson on 06-28-2023 Specific gravity (U) [Rel density] 1.020 1.002-1.030 [facility] Urobilinogen Auto test strip Ql (U)Ordered By: Drew Hinson on 06-28-2023 Urobilinogen Ql (U) 1 mg/dl Normal [facility] Absolute lymphocyte countOrd ered By: Taiwo Chen on 06-26-2023 Lymphocytes Auto (Unsp spec) [#/Vol] 2.63 10*3/uL 0.83-4.51 [facility] Basophil percentageOrdered B y: Taiwo Chen on 06-26-2023 Basophil percentage 228 mg/dL 74-106 [facility] Basophil percentage 8.4 g/dL 6.4-8.2 [facility] Basophil percentage 0.30 mg/dL 0.20-1.00 [facility] Basophil percentage 136 mmol/L 136-145 [facility] Basophil percentage 3.8 mmol/L 3.5-5.1 [facility] Basophil percentage 102 mmol/L 98-107 [facility] Basophils (Bld) [#/Vol] 8.6 10*3/uL 4.4-11.0 [facility] Basophils (Bld) [#/Vol] 5.5 10*3/uL 2.0-7.7 [facility] Basophils/100 WBC (Bld) 0.6 % 0-1 [facility] Basophils/100 WBC (Bld) 63.6 % 47-70 [facility] Basophils/100 WBC (Bld) 0.2 % 0-5 [facility] Bilirubin [Mass/Vol] 0.30 mg/dL 0.20-1.00 [facility] Comment on above: For patients on eltr ombopag therapy, use of Dimension [place] TBIL is not recommended. Chloride [Moles/Vol] 102 mmol/L 98-107 [facility] Eosinophils/100 WBC (Bld) 0.2 % 0-5 [facility] Glucose [Mass/Vol] 228 mg/dL 74-106 [facility] Comment on above: Glucose result great er than or equal to 200 mg/dLsuggests DIABETES MELLITUS per A.D.A. criteria. Neutrophils (Bld) [#/Vol] 5.5 10*3/uL 2.0-7.7 [facility] Neutrophils/100 WBC (Bld) 63.6 % 47-70 [facility] Potassium [Moles/Vol] 3.8 mmol/L 3.5-5.1 [facility] Protein [Mass/Vol] 8.4 g/dL 6.4-8.2 [facility] Sodium [Moles/Vol] 136 mmol/L 136-145 [facility] WBC (Bld) [#/Vol] 8.6 10*3/uL 4.4-11.0 [facility] Blood erythrocytes count (nu mber/volume)Ordered By: Taiwo Chen on 06-26-2023 RBC (Bld) [#/Vol] 4.31 10*6/uL 4.2-5.4 [facility] Blood hemoglobin measurement (mass/volume)Ordered By: Taiwo Chen on 06-26-2023 Hemoglobin (Bld) [Mass/Vol] 11.6 g/dL 12.0-15.0 [facility] Blood lymphocytes/100 leukoc ytesOrdered By: Taiwo Chen on 06-26-2023 Lymphocytes/100 WBC (Bld) 30.6 % 19-41 [facility] Blood monocytes/100 leukocyt esOrdered By: Taiwo Chen on 06-26-2023 Monocytes/100 WBC (Bld) 4.3 % 0-10 [facility] Blood platelet mean volumeOr dered By: Taiwo Chen on 06-26-2023 Platelet mean volume (Bld) [Entitic vol] 9.3 fL 6.2-12.0 [facility] Determination of erythrocyte mean corpuscular volume (MCV)Ordered By: Taiwo Chen on 06-26-2023 MCV (RBC) [Entitic vol] 84.7 fL 81-99 [facility] Hematocrit Auto (Bld) [Volum e fraction]Ordered By: Taiwo Chen on 06-26-2023 Hematocrit (Bld) [Volume fraction] 36.5 % 37-47 [facility] Laboratory - Chemistry and C hemistry - challengeOrdered By: Taiwosarkis Chen on 06-26-2023 ALP [Catalytic activity/Vol] 135 U/L 45-117 [facility] ALT [Catalytic activity/Vol] 15 U/L 13-56 [facility] CO2 [Moles/Vol] 26.0 mmol/L 21.0-32.0 [facility] Globulin (S) [Mass/Vol] 5.0 g/dL 2.2-4.2 [facility] Urea nitrogen/Creatinine [Mass ratio] 11.4 mg/mg 10-20 [facility] Laboratory - Hematology and Cell countsOrdered By: Taiwo Chen on 06-26-2023 Erythrocyte distribution width (RBC) [Entitic vol] 42.7 fL 35.1-43.9 [facility] Erythrocyte distribution width (RBC) [Ratio] 13.7 % 11.6-14.6 [facility] Immature granulocytes/100 WBC (Bld) 0.700 % 0.0-0.9 [facility] Comment on above: IG% - Immature Granu locytes (promyelocytes, myelocytes and metamyelocytes) > 1% indicates that a LEFT SHIFT is Present. MCH (RBC) [Entitic mass] 26.9 pg 27.0-32.0 [facility] Nucleated RBC/100 WBC (Bld) [Ratio] 0 % 0-5 [facility] MCHC Auto (RBC) [Mass/Vol]Or dered By: Taiwo Chen on 06-26-2023 MCHC (RBC) [Mass/Vol] 31.8 g/dL 32-36 [facility] No Panel InformationOrdered By: Taiwo Chen on 06-26-2023 Estimated Creatinine Clearance Calc 86.71 ml/min [facility] Estimated GFR (MDRD) Amer 97 mL/min >60 [facility] Comment on above: GFR Calc Estimated GFR (MDRD) Non-Af Amer 80 mL/min >60 [facility] Comment on above: Non- GFR Calc 26.9 pg 27.0-32.0 [facility] 13.7 % 11.6-14.6 [facility] 42.7 fl 35.1-43.9 [facility] 0.700 % 0.0-0.9 [facility] 0 % 0-5 [facility] 80 mL/min >60 [facility] 97 mL/min >60 [facility] 86.71 ml/min [facility] 11.4 RATIO 10-20 [facility] 5.0 g/dL 2.2-4.2 [facility] 135 U/L 45-117 [facility] 15 U/L 13-56 [facility] 26.0 mmol/L 21.0-32.0 [facility] Platelets bldOrdered By: Liss Chen on 06-26-2023 Platelets (Bld) [#/Vol] 464 10*3/uL 150-450 [facility] Serum or plasma albumin hussein urement (mass/volume)Ordered By: Taiwo Chen on 06-26-2023 Albumin [Mass/Vol] 3.4 g/dL 3.2-5.0 [facility] Serum or plasma albumin/glob ulin mass ratioOrdered By: Taiwo Chen on 06-26-2023 Albumin/Globulin [Mass ratio] 0.7 {ratio} 0.9-2.4 [facility] Serum or plasma calcium hussein urement (mass/volume)Ordered By: Taiwo Chen on 06-26-2023 Calcium [Mass/Vol] 9.5 mg/dL 8.5-10.1 [facility] Serum or plasma creatinine m easurement (mass/volume)Ordered By: Taiwo Chen on 06-26-2023 Creatinine [Mass/Vol] 0.88 mg/dL 0.55-1.02 [facility] Comment on above: The validity of the calculated GFR & GFRAA in patients over 70 years has not been determined. Clinical correlation is essential. Serum or plasma urea nitroge n measurement (mass/volume)Ordered By: Taiwo Chen on 06-26-2023 Urea nitrogen [Mass/Vol] 10 mg/dL 7-18 [facility] Thin prep Papanicolaou smear with manual screeningOrdered By: Taiwo Chen on 06-26-2023 Thin prep Papanicolaou smear with manual screening 8 U/L 15-37 [facility] Thin prep Papanicolaou smear with manual screening 8 5-15 [facility] Absolute lymphocyte countOrd ered By: Tesfaye Paula on 06-25-2023 Lymphocytes Auto (Unsp spec) [#/Vol] 2.74 10*3/uL 0.83-4.51 [facility] Basophil percentageOrdered B y: Tesfaye Paula on 06-25-2023 Basophil percentage 259 mg/dL 74-106 [facility] Basophil percentage 8.7 g/dL 6.4-8.2 [facility] Basophil percentage 0.40 mg/dL 0.20-1.00 [facility] Basophil percentage 137 mmol/L 136-145 [facility] Basophil percentage 4.0 mmol/L 3.5-5.1 [facility] Basophil percentage 103 mmol/L 98-107 [facility] Basophils (Bld) [#/Vol] 11.7 10*3/uL 4.4-11.0 [facility] Basophils (Bld) [#/Vol] 8.5 10*3/uL 2.0-7.7 [facility] Basophils/100 WBC (Bld) 0.4 % 0-1 [facility] Basophils/100 WBC (Bld) 72.6 % 47-70 [facility] Basophils/100 WBC (Bld) 0.0 % 0-5 [facility] Bilirubin [Mass/Vol] 0.40 mg/dL 0.20-1.00 [facility] Comment on above: For patients on eltr ombopag therapy, use of Dimension [place] TBIL is not recommended. Chloride [Moles/Vol] 103 mmol/L 98-107 [facility] Eosinophils/100 WBC (Bld) 0.0 % 0-5 [facility] Glucose [Mass/Vol] 259 mg/dL 74-106 [facility] Comment on above: Glucose result great er than or equal to 200 mg/dLsuggests DIABETES MELLITUS per A.D.A. criteria. Neutrophils (Bld) [#/Vol] 8.5 10*3/uL 2.0-7.7 [facility] Neutrophils/100 WBC (Bld) 72.6 % 47-70 [facility] Potassium [Moles/Vol] 4.0 mmol/L 3.5-5.1 [facility] Protein [Mass/Vol] 8.7 g/dL 6.4-8.2 [facility] Sodium [Moles/Vol] 137 mmol/L 136-145 [facility] WBC (Bld) [#/Vol] 11.7 10*3/uL 4.4-11.0 [facility] Basophil percentage 0-5 SEEN /hpf 0-5 [facility] Bilirubin Test strip Ql (U)O rdered By: Tesfaye Mitchell on 06-25-2023 Bilirubin Ql (U) Negative Negative [facility] Blood erythrocytes count (nu mber/volume)Ordered By: Tesfaye Mitchell on 06-25-2023 RBC (Bld) [#/Vol] 4.53 10*6/uL 4.2-5.4 [facility] Blood hemoglobin measurement (mass/volume)Ordered By: Tesfaye Mitchell on 06-25-2023 Hemoglobin (Bld) [Mass/Vol] 12.0 g/dL 12.0-15.0 [facility] Blood lymphocytes/100 leukoc ytesOrdered By: Tesfaye Mitchell on 06-25-2023 Lymphocytes/100 WBC (Bld) 23.5 % 19-41 [facility] Blood monocytes/100 leukocyt esOrdered By: Tesfaye Mitchell on 06-25-2023 Monocytes/100 WBC (Bld) 2.9 % 0-10 [facility] Blood platelet mean volumeOr dered By: Tesfaye Mitchell on 06-25-2023 Platelet mean volume (Bld) [Entitic vol] 9.1 fL 6.2-12.0 [facility] Determination of erythrocyte mean corpuscular volume (MCV)Ordered By: Tesfaye Mitchell on 06-25-2023 MCV (RBC) [Entitic vol] 84.3 fL 81-99 [facility] Hematocrit Auto (Bld) [Volum e fraction]Ordered By: Tesfaye Mitchell on 06-25-2023 Hematocrit (Bld) [Volume fraction] 38.2 % 37-47 [facility] Ketones Test strip Ql (U)Ord ered By: Tesfaye Mitchell on 06-25-2023 Ketones Ql (U) 15 mg/dl Negative [facility] Laboratory - Chemistry and C hemistry - challengeOrdered By: Tesfaye Mitchell on 06-25-2023 ALP [Catalytic activity/Vol] 156 U/L 45-117 [facility] ALT [Catalytic activity/Vol] 15 U/L -56 [facility] CO2 [Moles/Vol] 24.0 mmol/L 21.0-32.0 [facility] Globulin (S) [Mass/Vol] 5.4 g/dL 2.2-4.2 [facility] Lipase [Catalytic activity/Vol] 32 U/L - [facility] Comment on above: Please note:LIPASE r evised reference range effective 22. New Lipase methodology. Expected to produce lower values than the previous assay method. NEW Reference Range: 13 - 75 U/L Urea nitrogen/Creatinine [Mass ratio] 15.7 mg/mg 10-20 [facility] Laboratory - Drug toxicology Ordered By: Tesfaye Mitchell on 06-25-2023 Amphetamines Ql (U) Negative <1000 ng/mL [facility] Benzodiazepines Ql (U) Negative < 200 ng/mL [facility] Cannabinoids Screen Ql (U) Negative < 50 ng/mL [facility] Cocaine Ql (U) Negative < 300 ng/mL [facility] Opiates Ql (U) Negative < 300 ng/mL [facility] Laboratory - Hematology and Cell countsOrdered By: Tesfaye Mitchell on 06-25-2023 Erythrocyte distribution width (RBC) [Entitic vol] 42.4 fL 35.1-43.9 [facility] Erythrocyte distribution width (RBC) [Ratio] 13.7 % 11.6-14.6 [facility] Immature granulocytes/100 WBC (Bld) 0.600 % 0.0-0.9 [facility] Comment on above: IG% - Immature Granu locytes (promyelocytes, myelocytes and metamyelocytes) > 1% indicates that a LEFT SHIFT is Present. MCH (RBC) [Entitic mass] 26.5 pg 27.0-32.0 [facility] Nucleated RBC/100 WBC (Bld) [Ratio] 0 % 0-5 [facility] MCHC Auto (RBC) [Mass/Vol]Or dered By: Tesfaye Mitchell on 06-25-2023 MCHC (RBC) [Mass/Vol] 31.4 g/dL 32-36 [facility] Mucus LM Ql (Urine sed)Order ed By: Tesfaye Mitchell on 06-25-2023 Mucus Ql (Urine sed) 0 SEEN /hpf [facility] Nitrite Test strip Ql (U)Ord ered By: Tesafye Mitchell on 06-25-2023 Nitrite Ql (U) Negative Negative [facility] No Panel InformationOrdered By: Tesfaye Mitchell on 06-25-2023 Estimated Creatinine Clearance Calc 91.94 ml/min [facility] Estimated GFR (MDRD) Amer 103 mL/min >60 [facility] Comment on above: GFR Calc Estimated GFR (MDRD) Non-Af Amer 85 mL/min >60 [facility] Comment on above: Non- GFR Calc 26.5 pg 27.0-32.0 [facility] 13.7 % 11.6-14.6 [facility] 42.4 fl 35.1-43.9 [facility] 0.600 % 0.0-0.9 [facility] 0 % 0-5 [facility] 85 mL/min >60 [facility] 103 mL/min >60 [facility] 91.94 ml/min [facility] 15.7 RATIO 10-20 [facility] 5.4 g/dL 2.2-4.2 [facility] 32 U/L 13-75 [facility] 156 U/L 45-117 [facility] 15 U/L 13-56 [facility] 24.0 mmol/L 21.0-32.0 [facility] MDMA (Ecstasy) Screen Positive < 500 ng/mL [facility] Urine Barbiturates Screen Negative < 200 ng/mL [facility] Urine Drug Screen Comment [facility] Comment on above: CONFIRMATORY TESTING FOR ALL [...] Methadone Screen Negative < 300 ng/mL [facility] Negative < 50 ng/mL [facility] Positive < 500 ng/mL [facility] Platelets bldOrdered By: Mauro Mitchell on 06-25-2023 Platelets (Bld) [#/Vol] 497 10*3/uL 150-450 [facility] Protein Test strip Ql (U)Ord ered By: Tesfaye Mitchell on 06-25-2023 Protein Ql (U) 30 mg/dl Negative [facility] Serum or plasma albumin hussein urement (mass/volume)Ordered By: Tesfaye Mitchell on 06-25-2023 Albumin [Mass/Vol] 3.3 g/dL 3.2-5.0 [facility] Serum or plasma albumin/glob ulin mass ratioOrdered By: Tesfaye Mitchell on 06-25-2023 Albumin/Globulin [Mass ratio] 0.6 {ratio} 0.9-2.4 [facility] Serum or plasma calcium hussein urement (mass/volume)Ordered By: Tesfaye Mitchell on 06-25-2023 Calcium [Mass/Vol] 9.6 mg/dL 8.5-10.1 [facility] Serum or plasma creatinine m easurement (mass/volume)Ordered By: Tesfaye Mitchell on 06-25-2023 Creatinine [Mass/Vol] 0.83 mg/dL 0.55-1.02 [facility] Comment on above: The validity of the calculated GFR & GFRAA in patients over 70 years has not been determined. Clinical correlation is essential. Serum or plasma urea nitroge n measurement (mass/volume)Ordered By: Tesfaye Mitchell on 06-25-2023 Urea nitrogen [Mass/Vol] 13 mg/dL 7-18 [facility] Squamous epithelial cells de tection in urine sediment by light microscopyOrdered By: Tesfaye Mitchell on 06-25-2023 Epithelial cells.squamous LM Ql (Urine sed) 5-10 SEEN /hpf 5-10 [facility] Thin prep Papanicolaou smear with manual screeningOrdered By: Tesfaye Mitchell on 06-25-2023 Thin prep Papanicolaou smear with manual screening 14 U/L 15-37 [facility] Thin prep Papanicolaou smear with manual screening 10 5-15 [facility] Urine blood detectionOrdered By: Tesfaye Mitchell on 06-25-2023 RBC Ql (U) 250 /ul Negative [facility] RBC Ql (U) > 100 SEEN /hpf 0-5 [facility] Urine clarityOrdered By: Mauro Mitchell on 06-25-2023 Clarity (U) Sl. Cloudy Clear [facility] Urine color determinationOrd ered By: Tesfaye Mitchell on 06-25-2023 Color (U) Yellow Yellow [facility] Urine glucose detectionOrder ed By: Tesfaye Mitchell on 06-25-2023 Glucose Ql (U) 250 mg/dl Normal [facility] Urine leukocyte esterase det ection by dipstickOrdered By: Tesfaye Mitchell on 06-25-2023 Leukocyte esterase Test strip Ql (U) 25 /ul Negative [facility] Urine pHOrdered By: Tesfaye figueroa on 06-25-2023 pH (U) 7.0 [pH] 5.0 - 8.0 [facility] Urine phencyclidine (PCP) de tectionOrdered By: Tesfaye Mitchell on 06-25-2023 Phencyclidine Ql (U) Negative < 25 ng/mL [facility] Urine sediment bacteria coun t by microscopy (number/high power field)Ordered By: Tesfaye Mitchell on 06-25-2023 Bacteria LM.HPF (Urine sed) [#/Area] 0 /[HPF] None Seen [facility] Urine specific gravity measu rementOrdered By: Tesfaye Mitchell on 06-25-2023 Specific gravity (U) [Rel density] 1.010 1.002-1.030 [facility] Urobilinogen Auto test strip Ql (U)Ordered By: Tesfaye Mitchell on 06-25-2023 Urobilinogen Ql (U) Normal mg/dl Normal [facility] Anaerobic cultureOrdered By: Abdirizak Forrest on 05-18-2023 Bacteria identified Anaer cx Nom (Unsp spec) No anaerobic bacteria isolated. [facility] Bacteria identified Cx Nom ( Wound)Ordered By: Abdirizak Forrest on 05-18-2023 Wound Culture Meth. resistant Stap h. aureus [facility] Routine wound culture Meth. resistant St aph. aureus [facility] Fungus cultureOrdered By: Neva Forrest on 05-18-2023 Fungus identified Cx Nom (Unsp spec) [facility] Gram stain for investigation of transfusion reactionOrdered By: Abdirizak Forrest on 05-18-2023 Microscopic observation Gram stain Nom (Unsp spec) [facility] Glucose Glucometer (BldC) [M ass/Vol]Ordered By: Rickey Gifford on 05-09-2023 Glucose [Mass/Vol] 157 mg/dL 74-106 [facility] Comment on above: MANAGEMENT OF PATIEN T CARE PER NURSING PROTOCOL Basophil percentageOrdered B y: Rickey Gifford on 05-07-2023 Basophil percentage 161 mg/dL 74-106 [facility] Basophil percentage 138 mmol/L 136-145 [facility] Basophil percentage 4.0 mmol/L 3.5-5.1 [facility] Basophil percentage 108 mmol/L 98-107 [facility] Chloride [Moles/Vol] 108 mmol/L 98-107 [facility] Glucose [Mass/Vol] 161 mg/dL 74-106 [facility] Comment on above: Fasting Glucose resu lt greater than or equal to 126 mg/dL suggests DIABETES MELLITUS per A.D.A. criteria. Potassium [Moles/Vol] 4.0 mmol/L 3.5-5.1 [facility] Sodium [Moles/Vol] 138 mmol/L 136-145 [facility] Laboratory - Chemistry and C hemistry - challengeOrdered By: Rickey Gifford on 05-07-2023 CO2 [Moles/Vol] 26.0 mmol/L 21.0-32.0 [facility] Urea nitrogen/Creatinine [Mass ratio] 17.1 mg/mg - [facility] No Panel InformationOrdered By: Rickey Gifford on 05-07-2023 Estimated Creatinine Clearance Calc 131.56 ml/min [facility] Estimated GFR (MDRD) Amer 154 mL/min >60 [facility] Comment on above: GFR Calc Estimated GFR (MDRD) Non-Af Amer 127 mL/min >60 [facility] Comment on above: Non- GFR Calc 127 mL/min >60 [facility] 154 mL/min >60 [facility] 131.56 ml/min [facility] 17.1 RATIO 04-30 [facility] 26.0 mmol/L 21.0-32.0 [facility] Serum or plasma calcium hussein urement (mass/volume)Ordered By: Rickey Gifford on 05-07-2023 Calcium [Mass/Vol] 8.4 mg/dL 8.5-10.1 [facility] Serum or plasma creatinine m easurement (mass/volume)Ordered By: Rickey Gifford on 05-07-2023 Creatinine [Mass/Vol] 0.58 mg/dL 0.55-1.02 [facility] Comment on above: The validity of the calculated GFR & GFRAA in patients over 70 years has not been determined. Clinical correlation is essential. Serum or plasma urea nitroge n measurement (mass/volume)Ordered By: Rickey Gifford on 05-07-2023 Urea nitrogen [Mass/Vol] 10 mg/dL 7-18 [facility] Thin prep Papanicolaou smear with manual screeningOrdered By: Rickey Gifford on 05-07-2023 Thin prep Papanicolaou smear with manual screening 4 5-15 [facility] Absolute lymphocyte countOrd ered By: Rickey Gifford on 05-06-2023 Lymphocytes Auto (Unsp spec) [#/Vol] 2.89 10*3/uL 0.83-4.51 [facility] Basophil percentageOrdered B y: Rickey Gifford on 05-06-2023 Basophils (Bld) [#/Vol] 5.8 10*3/uL 4.4-11.0 [facility] Basophils (Bld) [#/Vol] 2.4 10*3/uL 2.0-7.7 [facility] Basophils/100 WBC (Bld) 40.5 % 47-70 [facility] Basophils/100 WBC (Bld) 0.3 % 0-5 [facility] Basophils/100 WBC (Bld) 0.5 % 0-1 [facility] Eosinophils/100 WBC (Bld) 0.3 % 0-5 [facility] Neutrophils (Bld) [#/Vol] 2.4 10*3/uL 2.0-7.7 [facility] Neutrophils/100 WBC (Bld) 40.5 % 47-70 [facility] WBC (Bld) [#/Vol] 5.8 10*3/uL 4.4-11.0 [facility] Blood erythrocytes count (nu mber/volume)Ordered By: Rickey Gifford on 05-06-2023 RBC (Bld) [#/Vol] 3.54 10*6/uL 4.2-5.4 [facility] Blood hemoglobin measurement (mass/volume)Ordered By: Rickey Gifford on 05-06-2023 Hemoglobin (Bld) [Mass/Vol] 10.1 g/dL 12.0-15.0 [facility] Blood lymphocytes/100 leukoc ytesOrdered By: Rickey Gifford on 05-06-2023 Lymphocytes/100 WBC (Bld) 49.6 % 19-41 [facility] Blood monocytes/100 leukocyt esOrdered By: Rickey Gifford on 05-06-2023 Monocytes/100 WBC (Bld) 8.4 % 0-10 [facility] Blood platelet mean volumeOr dered By: Rickey Gifford on 05-06-2023 Platelet mean volume (Bld) [Entitic vol] 9.4 fL 6.2-12.0 [facility] Determination of erythrocyte mean corpuscular volume (MCV)Ordered By: Rickey Gifford on 05-06-2023 MCV (RBC) [Entitic vol] 92.7 fL 81-99 [facility] Hematocrit Auto (Bld) [Volum e fraction]Ordered By: Rickey Gifford on 05-06-2023 Hematocrit (Bld) [Volume fraction] 32.8 % 37-47 [facility] Laboratory - Hematology and Cell countsOrdered By: Rickey Gifford on 05-06-2023 Erythrocyte distribution width (RBC) [Entitic vol] 54.6 fL 35.1-43.9 [facility] Erythrocyte distribution width (RBC) [Ratio] 15.9 % 11.6-14.6 [facility] Immature granulocytes/100 WBC (Bld) 0.700 % 0.0-0.9 [facility] Comment on above: IG% - Immature Granu locytes (promyelocytes, myelocytes and metamyelocytes) > 1% indicates that a LEFT SHIFT is Present. MCH (RBC) [Entitic mass] 28.5 pg 27.0-32.0 [facility] Nucleated RBC/100 WBC (Bld) [Ratio] 0 % 0-5 [facility] MCHC Auto (RBC) [Mass/Vol]Or dered By: Rickey Gifford on 05-06-2023 MCHC (RBC) [Mass/Vol] 30.8 g/dL 32-36 [facility] No Panel InformationOrdered By: Rickey Gifford on 05-06-2023 28.5 pg 27.0-32.0 [facility] 15.9 % 11.6-14.6 [facility] 54.6 fl 35.1-43.9 [facility] 0.700 % 0.0-0.9 [facility] 0 % 0-5 [facility] Platelets bldOrdered By: Ivy Gifford on 05-06-2023 Platelets (Bld) [#/Vol] 317 10*3/uL 150-450 [facility] Serum or plasma trough vanco mycin levelOrdered By: Rickey Gifford on 05-05-2023 Vancomycin trough [Mass/Vol] 15.1 ug/mL 5.0-15.0 [facility] Comment on above: VANCOMYCIN STANDARED DRUG THERAPY TROUGH LEVEL: 5.0 - 15.0 mg/L VANCOMYCIN HIGH INTENSITY THERAPY TROUGH LEVEL: 15.0 - 20.0 mg/L High Intensity therapy recommended for serious lifethreatening infections include:- Bbtdmsuhix-Lqnhacglmysj-Mjwdeiolt (Ventilator/Healtcare Associated)-Sepsis PLEASE CONTACT PHARMACY SERVICES (#[id number]) FOR INTERPRETATIONOF RESULTS. Absolute lymphocyte countOrd ered By: Javy Doss on 05-04-2023 Lymphocytes Auto (Unsp spec) [#/Vol] 1.65 10*3/uL 0.83-4.51 [facility] Bacteria identified Anaer cx Nom (Unsp spec)Ordered By: Abdirizak Forrest on 05-04-2023 Anaerobic Culture Bacteroides fragilis [facility] Bacteria identified Cx Nom ( Wound)Ordered By: Abdirizak Forrest on 05-04-2023 Wound Culture Streptococcus dysgalactiae dys [facility] Routine wound culture Streptococcus dysgalactiae dys [facility] Basophil percentageOrdered B y: Javy Doss on 05-04-2023 Basophil percentage 207 mg/dL 74-106 [facility] Basophil percentage 133 mmol/L 136-145 [facility] Basophil percentage 3.8 mmol/L 3.5-5.1 [facility] Basophil percentage 102 mmol/L 98-107 [facility] Basophil percentage 1.9 mmol/L 0.4-2.0 [facility] Basophils (Bld) [#/Vol] 11.1 10*3/uL 4.4-11.0 [facility] Basophils (Bld) [#/Vol] 8.1 10*3/uL 2.0-7.7 [facility] Basophils/100 WBC (Bld) 73.2 % 47-70 [facility] Basophils/100 WBC (Bld) 0.0 % 0-5 [facility] Basophils/100 WBC (Bld) 0.4 % 0-1 [facility] Lactate [Moles/Vol] 1.9 mmol/L 0.4-2.0 [facility] Blood erythrocytes count (nu mber/volume)Ordered By: Javy Doss on 05-04-2023 RBC (Bld) [#/Vol] 3.68 10*6/uL 4.2-5.4 [facility] Blood hemoglobin measurement (mass/volume)Ordered By: Javy Doss on 05-04-2023 Hemoglobin (Bld) [Mass/Vol] 10.5 g/dL 12.0-15.0 [facility] Blood lymphocytes/100 leukoc ytesOrdered By: Javy Doss on 05-04-2023 Lymphocytes/100 WBC (Bld) 14.9 % 19-41 [facility] Blood monocytes/100 leukocyt esOrdered By: Javy Doss on 05-04-2023 Monocytes/100 WBC (Bld) 10.2 % 0-10 [facility] Blood platelet mean volumeOr dered By: Javy Doss on 05-04-2023 Platelet mean volume (Bld) [Entitic vol] 9.2 fL 6.2-12.0 [facility] Determination of erythrocyte mean corpuscular volume (MCV)Ordered By: Javy Doss on 05-04-2023 MCV (RBC) [Entitic vol] 89.1 fL 81-99 [facility] Erythrocyte sedimentation ra teOrdered By: Abdirizak Forrest on 05-04-2023 ESR (Bld) [Velocity] 88 mm/h 0-30 [facility] Fungus cultureOrdered By: Neva Forrest on 05-04-2023 Fungus identified Cx Nom (Unsp spec) [facility] Fungus stainOrdered By: Jonas Forrest on 05-04-2023 Fungus identified Fungus stain Nom (Unsp spec) [facility] Gram stain for investigation of transfusion reactionOrdered By: Abdirizak Forrest on 05-04-2023 Microscopic observation Gram stain Nom (Unsp spec) [facility] Microscopic observation Gram stain Nom (Unsp spec) [facility] Hematocrit Auto (Bld) [Volum e fraction]Ordered By: Javy Doss on 05-04-2023 Hematocrit (Bld) [Volume fraction] 32.8 % 37-47 [facility] Laboratory - Chemistry and C hemistry - challengeOrdered By: Ronald Hilario on 05-04-2023 HCG ( test) Ql (U) Negative [facility] Comment on above: Very dilute urine sp ecimens, as indicated by a low specificgravity, may not contain traveling representative levels of hCG. If is still suspected, a first morning urinespecimen should be collected 48 hours later and tested. Laboratory - Microbiology an d Antimicrobial susceptibilityOrdered By: Javy Doss on 05-04-2023 Bacteria identified Cx Nom (Bld) No growth in 5 days. [facility] MCHC Auto (RBC) [Mass/Vol]Or dered By: Javy Doss on 05-04-2023 MCHC (RBC) [Mass/Vol] 32.0 g/dL 32-36 [facility] No Panel InformationOrdered By: Ronald Hilario on 05-04-2023 Negative [facility] No Panel InformationOrdered By: Rem Ungmeño on 05-04-2023 No growth in 5 days. [facility] 28.5 pg 27.0-32.0 [facility] 15.9 % 11.6-14.6 [facility] 52.3 fl 35.1-43.9 [facility] 1.300 % 0.0-0.9 [facility] 0 % 0-5 [facility] 100 mL/min >60 [facility] 121 mL/min >60 [facility] 105.98 ml/min [facility] 12.5 RATIO 10-20 [facility] 27.0 mmol/L 21.0-32.0 [facility] Platelets bldOrdered By: Haylee us Romario on 05-04-2023 Platelets (Bld) [#/Vol] 333 10*3/uL 150-450 [facility] Serum or plasma C reactive p rotein measurement (mass/volume)Ordered By: Abdirizak Forrest on 05-04-2023 CRP [Mass/Vol] 117.00 mg/L 0.0-3.0 [facility] Comment on above: C-Reactive Protein ( CRP) provides useful information for thediagnosis, therapy and monitoring of inflammatory processesand associated diseases. For the evaluation of Relative Riskfor Cardiovascular Disease, a High Sensitivity CRP (HSCRP)should be ordered. Serum or plasma calcium hussein urement (mass/volume)Ordered By: Remus Romario on 05-04-2023 Calcium [Mass/Vol] 8.7 mg/dL 8.5-10.1 [facility] Serum or plasma creatinine m easurement (mass/volume)Ordered By: Remus Ungmeño on 05-04-2023 Creatinine [Mass/Vol] 0.72 mg/dL 0.55-1.02 [facility] Serum or plasma urea nitroge n measurement (mass/volume)Ordered By: Remus Ungmeño on 05-04-2023 Urea nitrogen [Mass/Vol] 9 mg/dL 7-18 [facility] Thin prep Papanicolaou smear with manual screeningOrdered By: Javy Doss on 05-04-2023 Thin prep Papanicolaou smear with manual screening 4 5-15 [facility] Whole blood hemoglobin A1c/t otal hemoglobin ratio (mass fraction)Ordered By: Abdirizak Forrest on 05-04-2023 HbA1c (Bld) [Mass fraction] 7.2 % 3.8-5.6 [facility] Comment on above: Normal < 5.7 % Predi abetic 5.7 - 6.4 % Diabetic >or= 6.5 % Please note range changes. Absolute lymphocyte countOrd ered By: Deann Guerrero on 04-14-2023 Lymphocytes Auto (Unsp spec) [#/Vol] 3.05 10*3/uL 0.83-4.51 [facility] Basophil percentageOrdered B y: Deann Guerrero on 04-14-2023 Basophil percentage 179 mg/dL 74-106 [facility] Basophil percentage 8.2 g/dL 6.4-8.2 [facility] Basophil percentage 0.60 mg/dL 0.20-1.00 [facility] Basophil percentage 135 mmol/L 136-145 [facility] Basophil percentage 3.6 mmol/L 3.5-5.1 [facility] Basophil percentage 103 mmol/L 98-107 [facility] Basophils (Bld) [#/Vol] 7.8 10*3/uL 4.4-11.0 [facility] Basophils (Bld) [#/Vol] 4.1 10*3/uL 2.0-7.7 [facility] Basophils/100 WBC (Bld) 52.8 % 47-70 [facility] Basophils/100 WBC (Bld) 0.3 % 0-5 [facility] Basophils/100 WBC (Bld) 0.5 % 0-1 [facility] Bilirubin [Mass/Vol] 0.60 mg/dL 0.20-1.00 [facility] Comment on above: For patients on eltr ombopag therapy, use of Dimension [place] TBIL is not recommended. Chloride [Moles/Vol] 103 mmol/L 98-107 [facility] Eosinophils/100 WBC (Bld) 0.3 % 0-5 [facility] Glucose [Mass/Vol] 179 mg/dL 74-106 [facility] Comment on above: Fasting Glucose resu lt greater than or equal to 126 mg/dL suggests DIABETES MELLITUS per A.D.A. criteria. Neutrophils (Bld) [#/Vol] 4.1 10*3/uL 2.0-7.7 [facility] Neutrophils/100 WBC (Bld) 52.8 % 47-70 [facility] Potassium [Moles/Vol] 3.6 mmol/L 3.5-5.1 [facility] Protein [Mass/Vol] 8.2 g/dL 6.4-8.2 [facility] Sodium [Moles/Vol] 135 mmol/L 136-145 [facility] WBC (Bld) [#/Vol] 7.8 10*3/uL 4.4-11.0 [facility] Blood erythrocytes count (nu mber/volume)Ordered By: Deann Guerrero on 04-14-2023 RBC (Bld) [#/Vol] 4.57 10*6/uL 4.2-5.4 [facility] Blood hemoglobin measurement (mass/volume)Ordered By: Deann Guerrero on 04-14-2023 Hemoglobin (Bld) [Mass/Vol] 12.8 g/dL 12.0-15.0 [facility] Blood lymphocytes/100 leukoc ytesOrdered By: Deann Guerrero on 04-14-2023 Lymphocytes/100 WBC (Bld) 39.3 % 19-41 [facility] Blood monocytes/100 leukocyt esOrdered By: Deann Guerrero on 04-14-2023 Monocytes/100 WBC (Bld) 6.1 % 0-10 [facility] Blood platelet mean volumeOr dered By: Deann Guerrero on 04-14-2023 Platelet mean volume (Bld) [Entitic vol] 8.3 fL 6.2-12.0 [facility] Determination of erythrocyte mean corpuscular volume (MCV)Ordered By: Deann Guerrero on 04-14-2023 MCV (RBC) [Entitic vol] 87.7 fL 81-99 [facility] Direct bilirubinOrdered By: Deann Guerrero on 04-14-2023 Bilirubin.direct [Mass/Vol] 0.16 mg/dL 0.00-0.30 [facility] Hematocrit Auto (Bld) [Volum e fraction]Ordered By: Deann Guerrero on 04-14-2023 Hematocrit (Bld) [Volume fraction] 40.1 % 37-47 [facility] Laboratory - Chemistry and C hemistry - challengeOrdered By: Deann Guerrero on 04-14-2023 ALP [Catalytic activity/Vol] 111 U/L 45-117 [facility] ALT [Catalytic activity/Vol] 23 U/L 13-56 [facility] CO2 [Moles/Vol] 25.0 mmol/L 21.0-32.0 [facility] Globulin (S) [Mass/Vol] 5.0 g/dL 2.2-4.2 [facility] Lipase [Catalytic activity/Vol] 80 U/L -75 [facility] Comment on above: Please note:LIPASE r evised reference range effective 22. New Lipase methodology. Expected to produce lower values than the previous assay method. NEW Reference Range: 13 - 75 U/L Urea nitrogen/Creatinine [Mass ratio] 9.6 mg/mg 10-20 [facility] Laboratory - Hematology and Cell countsOrdered By: Deann Guerrero on 04-14-2023 Erythrocyte distribution width (RBC) [Entitic vol] 48.6 fL 35.1-43.9 [facility] Erythrocyte distribution width (RBC) [Ratio] 16.4 % 11.6-14.6 [facility] Immature granulocytes/100 WBC (Bld) 1.000 % 0.0-0.9 [facility] Comment on above: IG% - Immature Granu locytes (promyelocytes, myelocytes and metamyelocytes) > 1% indicates that a LEFT SHIFT is Present. MCH (RBC) [Entitic mass] 28.0 pg 27.0-32.0 [facility] Nucleated RBC/100 WBC (Bld) [Ratio] 0 % 0-5 [facility] MCHC Auto (RBC) [Mass/Vol]Or dered By: Deann Guerrero on 04-14-2023 MCHC (RBC) [Mass/Vol] 31.9 g/dL 32-36 [facility] No Panel InformationOrdered By: Deann Guerrero on 04-14-2023 Estimated Creatinine Clearance Calc 73.37 ml/min [facility] Estimated GFR (MDRD) Amer 79 mL/min >60 [facility] Comment on above: GFR Calc Estimated GFR (MDRD) Non-Af Amer 66 mL/min >60 [facility] Comment on above: Non- GFR Calc 28.0 pg 27.0-32.0 [facility] 16.4 % 11.6-14.6 [facility] 48.6 fl 35.1-43.9 [facility] 1.000 % 0.0-0.9 [facility] 0 % 0-5 [facility] 66 mL/min >60 [facility] 79 mL/min >60 [facility] 73.37 ml/min [facility] 9.6 RATIO 10-20 [facility] 5.0 g/dL 2.2-4.2 [facility] 80 U/L 13-75 [facility] 111 U/L 45-117 [facility] 23 U/L 13-56 [facility] 25.0 mmol/L 21.0-32.0 [facility] Platelets bldOrdered By: Sulema Guerrero on 04-14-2023 Platelets (Bld) [#/Vol] 565 10*3/uL 150-450 [facility] Serum or plasma albumin hussein urement (mass/volume)Ordered By: Deann Guerrero on 04-14-2023 Albumin [Mass/Vol] 3.2 g/dL 3.2-5.0 [facility] Serum or plasma calcium hussein urement (mass/volume)Ordered By: Deann Guerrero on 04-14-2023 Calcium [Mass/Vol] 9.5 mg/dL 8.5-10.1 [facility] Serum or plasma creatinine m easurement (mass/volume)Ordered By: Deann Guerrero on 04-14-2023 Creatinine [Mass/Vol] 1.04 mg/dL 0.55-1.02 [facility] Comment on above: The validity of the calculated GFR & GFRAA in patients over 70 years has not been determined. Clinical correlation is essential. Serum or plasma urea nitroge n measurement (mass/volume)Ordered By: Deann Guerrero on 04-14-2023 Urea nitrogen [Mass/Vol] 10 mg/dL 7-18 [facility] Thin prep Papanicolaou smear with manual screeningOrdered By: Deann Guerrero on 04-14-2023 Thin prep Papanicolaou smear with manual screening 13 U/L 15-37 [facility] Thin prep Papanicolaou smear with manual screening 7 5-15 [facility] Absolute lymphocyte countOrd ered By: Poli Barfield on 04-13-2023 Lymphocytes Auto (Unsp spec) [#/Vol] 3.04 10*3/uL 0.83-4.51 [facility] Basophil percentageOrdered B y: Poli Barfield on 04-13-2023 Basophil percentage 280 mg/dL 74-106 [facility] Basophil percentage 7.8 g/dL 6.4-8.2 [facility] Basophil percentage 0.60 mg/dL 0.20-1.00 [facility] Basophil percentage 132 mmol/L 136-145 [facility] Basophil percentage 4.0 mmol/L 3.5-5.1 [facility] Basophil percentage 100 mmol/L 98-107 [facility] Basophils (Bld) [#/Vol] 8.7 10*3/uL 4.4-11.0 [facility] Basophils (Bld) [#/Vol] 5.1 10*3/uL 2.0-7.7 [facility] Basophils/100 WBC (Bld) 58.8 % 47-70 [facility] Basophils/100 WBC (Bld) 0.1 % 0-5 [facility] Basophils/100 WBC (Bld) 0.6 % 0-1 [facility] Bilirubin [Mass/Vol] 0.60 mg/dL 0.20-1.00 [facility] Comment on above: For patients on eltr ombopag therapy, use of Dimension [place] TBIL is not recommended. Chloride [Moles/Vol] 100 mmol/L 98-107 [facility] Eosinophils/100 WBC (Bld) 0.1 % 0-5 [facility] Glucose [Mass/Vol] 280 mg/dL 74-106 [facility] Comment on above: Glucose result great er than or equal to 200 mg/dLsuggests DIABETES MELLITUS per A.D.A. criteria. Neutrophils (Bld) [#/Vol] 5.1 10*3/uL 2.0-7.7 [facility] Neutrophils/100 WBC (Bld) 58.8 % 47-70 [facility] Potassium [Moles/Vol] 4.0 mmol/L 3.5-5.1 [facility] Protein [Mass/Vol] 7.8 g/dL 6.4-8.2 [facility] Sodium [Moles/Vol] 132 mmol/L 136-145 [facility] WBC (Bld) [#/Vol] 8.7 10*3/uL 4.4-11.0 [facility] Beta hCG serum qualOrdered B y: Poli Barfield on 04-13-2023 Beta HCG ( test) Ql Negative [facility] Blood erythrocytes count (nu mber/volume)Ordered By: Poli Barfield on 04-13-2023 RBC (Bld) [#/Vol] 4.42 10*6/uL 4.2-5.4 [facility] Blood hemoglobin measurement (mass/volume)Ordered By: Poli Barfield on 04-13-2023 Hemoglobin (Bld) [Mass/Vol] 12.6 g/dL 12.0-15.0 [facility] Blood lymphocytes/100 leukoc ytesOrdered By: Poli Barfield on 04-13-2023 Lymphocytes/100 WBC (Bld) 35.1 % 19-41 [facility] Blood monocytes/100 leukocyt esOrdered By: Poli Barfield on 04-13-2023 Monocytes/100 WBC (Bld) 4.6 % 0-10 [facility] Blood platelet mean volumeOr dered By: Poli Barfield on 04-13-2023 Platelet mean volume (Bld) [Entitic vol] 8.3 fL 6.2-12.0 [facility] Determination of erythrocyte mean corpuscular volume (MCV)Ordered By: Poli Barfield on 04-13-2023 MCV (RBC) [Entitic vol] 87.3 fL 81-99 [facility] Hematocrit Auto (Bld) [Volum e fraction]Ordered By: Poli Barfield on 04-13-2023 Hematocrit (Bld) [Volume fraction] 38.6 % 37-47 [facility] Laboratory - Chemistry and C hemistry - challengeOrdered By: Poli Barfield on 04-13-2023 ALP [Catalytic activity/Vol] 114 U/L 45-117 [facility] ALT [Catalytic activity/Vol] 23 U/L 13-56 [facility] CO2 [Moles/Vol] 24.0 mmol/L 21.0-32.0 [facility] Globulin (S) [Mass/Vol] 4.8 g/dL 2.2-4.2 [facility] Lipase [Catalytic activity/Vol] 98 U/L 13-75 [facility] Comment on above: Please note:LIPASE r evised reference range effective 22. New Lipase methodology. Expected to produce lower values than the previous assay method. NEW Reference Range: 13 - 75 U/L Urea nitrogen/Creatinine [Mass ratio] 9.4 mg/mg 10-20 [facility] Laboratory - Hematology and Cell countsOrdered By: Poli Barfield on 04-13-2023 Erythrocyte distribution width (RBC) [Entitic vol] 47.7 fL 35.1-43.9 [facility] Erythrocyte distribution width (RBC) [Ratio] 16.6 % 11.6-14.6 [facility] Immature granulocytes/100 WBC (Bld) 0.800 % 0.0-0.9 [facility] Comment on above: IG% - Immature Granu locytes (promyelocytes, myelocytes and metamyelocytes) > 1% indicates that a LEFT SHIFT is Present. MCH (RBC) [Entitic mass] 28.5 pg 27.0-32.0 [facility] Nucleated RBC/100 WBC (Bld) [Ratio] 0 % 0-5 [facility] MCHC Auto (RBC) [Mass/Vol]Or dered By: Poli Barfield on 04-13-2023 MCHC (RBC) [Mass/Vol] 32.6 g/dL 32-36 [facility] No Panel InformationOrdered By: Poli Barfield on 04-13-2023 Estimated Creatinine Clearance Calc 59.62 ml/min [facility] Estimated GFR (MDRD) Amer 63 mL/min >60 [facility] Comment on above: GFR Calc Estimated GFR (MDRD) Non-Af Amer 52 mL/min >60 [facility] Comment on above: Non- GFR Calc 28.5 pg 27.0-32.0 [facility] 16.6 % 11.6-14.6 [facility] 47.7 fl 35.1-43.9 [facility] 0.800 % 0.0-0.9 [facility] 0 % 0-5 [facility] 52 mL/min >60 [facility] 63 mL/min >60 [facility] 59.62 ml/min [facility] 9.4 RATIO 10-20 [facility] 4.8 g/dL 2.2-4.2 [facility] 98 U/L 13-75 [facility] 114 U/L 45-117 [facility] 23 U/L 13-56 [facility] 24.0 mmol/L 21.0-32.0 [facility] Platelets bldOrdered By: Devon Barfield on 04-13-2023 Platelets (Bld) [#/Vol] 542 10*3/uL 150-450 [facility] Serum or plasma albumin hussein urement (mass/volume)Ordered By: Poli Barfield on 04-13-2023 Albumin [Mass/Vol] 3.0 g/dL 3.2-5.0 [facility] Serum or plasma albumin/glob ulin mass ratioOrdered By: Poli Barfield on 04-13-2023 Albumin/Globulin [Mass ratio] 0.6 {ratio} 0.9-2.4 [facility] Serum or plasma calcium hussein urement (mass/volume)Ordered By: Poli Barfield on 04-13-2023 Calcium [Mass/Vol] 9.5 mg/dL 8.5-10.1 [facility] Serum or plasma creatinine m easurement (mass/volume)Ordered By: Poli Barfield on 04-13-2023 Creatinine [Mass/Vol] 1.28 mg/dL 0.55-1.02 [facility] Comment on above: The validity of the calculated GFR & GFRAA in patients over 70 years has not been determined. Clinical correlation is essential. Serum or plasma urea nitroge n measurement (mass/volume)Ordered By: Poli Barfield on 04-13-2023 Urea nitrogen [Mass/Vol] 12 mg/dL 7-18 [facility] Thin prep Papanicolaou smear with manual screeningOrdered By: Poli Barfield on 04-13-2023 Thin prep Papanicolaou smear with manual screening 17 U/L 15-37 [facility] Thin prep Papanicolaou smear with manual screening 8 5-15 [facility] Absolute lymphocyte countOrd ered By: Rickey Shepard on 03-06-2023 Lymphocytes Auto (Unsp spec) [#/Vol] 3.14 10*3/uL 0.83-4.51 [facility] Basophil percentageOrdered B y: Rickey Shepard on 03-06-2023 Basophil percentage 215 mg/dL 74-106 [facility] Basophil percentage 8.4 g/dL 6.4-8.2 [facility] Basophil percentage 0.50 mg/dL 0.20-1.00 [facility] [facility] Basophil percentage 134 mmol/L 136-145 [facility] Basophil percentage 3.1 mmol/L 3.5-5.1 [facility] Basophil percentage 101 mmol/L 98-107 [facility] Basophil percentage 2.2 mmol/L 0.4-2.0 [facility] Basophils (Bld) [#/Vol] 10.9 10*3/uL 4.4-11.0 [facility] Basophils (Bld) [#/Vol] 6.9 10*3/uL 2.0-7.7 [facility] Basophils/100 WBC (Bld) 62.8 % 47-70 [facility] Basophils/100 WBC (Bld) 0.2 % 0-5 [facility] Basophils/100 WBC (Bld) 0.4 % 0-1 [facility] Bilirubin [Mass/Vol] 0.50 mg/dL 0.20-1.00 [facility] Comment on above: For patients on eltr ombopag therapy, use of Dimension [place] TBIL is not recommended. Chloride [Moles/Vol] 101 mmol/L 98-107 [facility] Eosinophils/100 WBC (Bld) 0.2 % 0-5 [facility] Glucose [Mass/Vol] 215 mg/dL 74-106 [facility] Comment on above: Glucose result great er than or equal to 200 mg/dLsuggests DIABETES MELLITUS per A.D.A. criteria. Lactate [Moles/Vol] 2.2 mmol/L 0.4-2.0 [facility] Comment on above: Critical Result(s) C alled at: 09:58:40 03/06/2023 by: Gayathri Wells Results read back by same. Neutrophils (Bld) [#/Vol] 6.9 10*3/uL 2.0-7.7 [facility] Neutrophils/100 WBC (Bld) 62.8 % 47-70 [facility] Potassium [Moles/Vol] 3.1 mmol/L 3.5-5.1 [facility] Protein [Mass/Vol] 8.4 g/dL 6.4-8.2 [facility] Sodium [Moles/Vol] 134 mmol/L 136-145 [facility] WBC (Bld) [#/Vol] 10.9 10*3/uL 4.4-11.0 [facility] Basophil percentage 0 SEEN /hpf 0-5 [facility] Bilirubin Test strip Ql (U)O rdered By: Rickey Shepard on 03-06-2023 Bilirubin Ql (U) Negative Negative [facility] Blood erythrocytes count (nu mber/volume)Ordered By: Rickey Shepard on 03-06-2023 RBC (Bld) [#/Vol] 4.33 10*6/uL 4.2-5.4 [facility] Blood hemoglobin measurement (mass/volume)Ordered By: Rickey Shepard on 03-06-2023 Hemoglobin (Bld) [Mass/Vol] 11.5 g/dL 12.0-15.0 [facility] Blood lymphocytes/100 leukoc ytesOrdered By: Rickey Shepard on 03-06-2023 Lymphocytes/100 WBC (Bld) 28.8 % 19-41 [facility] Blood monocytes/100 leukocyt esOrdered By: Rickey Shepard on 03-06-2023 Monocytes/100 WBC (Bld) 7.2 % 0-10 [facility] Blood platelet mean volumeOr dered By: Rickey Shepard on 03-06-2023 Platelet mean volume (Bld) [Entitic vol] 9.2 fL 6.2-12.0 [facility] Determination of erythrocyte mean corpuscular volume (MCV)Ordered By: Rickey Shepard on 03-06-2023 MCV (RBC) [Entitic vol] 82.7 fL 81-99 [facility] Hematocrit Auto (Bld) [Volum e fraction]Ordered By: Rickey Shepard on 03-06-2023 Hematocrit (Bld) [Volume fraction] 35.8 % 37-47 [facility] INR in Blood by Coagulation assayOrdered By: Rickey Shepard on 03-06-2023 INR Coag (Bld) [Relative time] 1.2 {INR} [facility] Ketones Test strip Ql (U)Ord ered By: Rickey Shepard on 03-06-2023 Ketones Ql (U) Negative Negative [facility] Laboratory - Chemistry and C hemistry - challengeOrdered By: Rickey Shepard on 03-06-2023 ALP [Catalytic activity/Vol] 109 U/L 45-117 [facility] ALT [Catalytic activity/Vol] 13 U/L 13-56 [facility] CO2 [Moles/Vol] 25.0 mmol/L 21.0-32.0 [facility] Globulin (S) [Mass/Vol] 5.2 g/dL 2.2-4.2 [facility] Lipase [Catalytic activity/Vol] 59 U/L 13-75 [facility] Comment on above: Please note:LIPASE r evised reference range effective 22. New Lipase methodology. Expected to produce lower values than the previous assay method. NEW Reference Range: 13 - 75 U/L Urea nitrogen/Creatinine [Mass ratio] 4.0 mg/mg 10-20 [facility] Laboratory - CoagulationOrde red By: Rickey Shepard on 03-06-2023 aPTT Coag (Bld) [Time] 28.8 s 24.1-36.2 [facility] PT Coag (PPP) [Time] 14.8 s 11.7-14.9 [facility] Laboratory - Hematology and Cell countsOrdered By: Rickey Shepard on 03-06-2023 Erythrocyte distribution width (RBC) [Entitic vol] 41.1 fL 35.1-43.9 [facility] Erythrocyte distribution width (RBC) [Ratio] 13.6 % 11.6-14.6 [facility] Immature granulocytes/100 WBC (Bld) 0.600 % 0.0-0.9 [facility] Comment on above: IG% - Immature Granu locytes (promyelocytes, myelocytes and metamyelocytes) > 1% indicates that a LEFT SHIFT is Present. MCH (RBC) [Entitic mass] 26.6 pg 27.0-32.0 [facility] Nucleated RBC/100 WBC (Bld) [Ratio] 0 % 0-5 [facility] MCHC Auto (RBC) [Mass/Vol]Or dered By: Rickey Shepard on 03-06-2023 MCHC (RBC) [Mass/Vol] 32.1 g/dL 32-36 [facility] Mucus LM Ql (Urine sed)Order ed By: Rickey Shepard on 03-06-2023 Mucus Ql (Urine sed) 0 SEEN /hpf [facility] Nitrite Test strip Ql (U)Ord ered By: Rickey Shepard on 03-06-2023 Nitrite Ql (U) Negative Negative [facility] No Panel InformationOrdered By: Rickey Shepard on 03-06-2023 Estimated Creatinine Clearance Calc 75.55 ml/min [facility] Estimated GFR (MDRD) Amer 82 mL/min >60 [facility] Comment on above: GFR Calc Estimated GFR (MDRD) Non-Af Amer 68 mL/min >60 [facility] Comment on above: Non- GFR Calc 26.6 pg 27.0-32.0 [facility] 13.6 % 11.6-14.6 [facility] 41.1 fl 35.1-43.9 [facility] 0.600 % 0.0-0.9 [facility] 0 % 0-5 [facility] 14.8 SECONDS 11.7-14.9 [facility] 28.8 Seconds 24.1-36.2 [facility] 68 mL/min >60 [facility] 82 mL/min >60 [facility] 75.55 ml/min [facility] 4.0 RATIO 10-20 [facility] 5.2 g/dL 2.2-4.2 [facility] 59 U/L 13-75 [facility] 109 U/L 45-117 [facility] 13 U/L 13-56 [facility] 25.0 mmol/L 21.0-32.0 [facility] Platelets bldOrdered By: Ivy Shepard on 03-06-2023 Platelets (Bld) [#/Vol] 412 10*3/uL 150-450 [facility] Protein Test strip Ql (U)Ord ered By: Rickey Shepard on 03-06-2023 Protein Ql (U) 30 mg/dl Negative [facility] Serum or plasma acetone hussein urement (mass/volume)Ordered By: Rickey Shepard on 03-06-2023 Acetone [Mass/Vol] Negative NEG [facility] Serum or plasma albumin hussein urement (mass/volume)Ordered By: Rickey Shepard on 03-06-2023 Albumin [Mass/Vol] 3.2 g/dL 3.2-5.0 [facility] Serum or plasma albumin/glob ulin mass ratioOrdered By: Rickey Shepard on 03-06-2023 Albumin/Globulin [Mass ratio] 0.6 {ratio} 0.9-2.4 [facility] Serum or plasma calcium hussein urement (mass/volume)Ordered By: Rickey Shepard on 03-06-2023 Calcium [Mass/Vol] 9.3 mg/dL 8.5-10.1 [facility] Serum or plasma creatinine m easurement (mass/volume)Ordered By: Rickey Shepard on 03-06-2023 Creatinine [Mass/Vol] 1.01 mg/dL 0.55-1.02 [facility] Comment on above: The validity of the calculated GFR & GFRAA in patients over 70 years has not been determined. Clinical correlation is essential. Serum or plasma urea nitroge n measurement (mass/volume)Ordered By: Rickey Shepard on 03-06-2023 Urea nitrogen [Mass/Vol] 4 mg/dL 7-18 [facility] Squamous epithelial cells de tection in urine sediment by light microscopyOrdered By: Rickey Shepard on 03-06-2023 Epithelial cells.squamous LM Ql (Urine sed) 0-5 SEEN /hpf 5-10 [facility] Thin prep Papanicolaou smear with manual screeningOrdered By: Rickey Shepard on 03-06-2023 Thin prep Papanicolaou smear with manual screening 7 U/L 15-37 [facility] Thin prep Papanicolaou smear with manual screening 8 5-15 [facility] Urine blood detectionOrdered By: Rickey Shepard on 03-06-2023 RBC Ql (U) 10 /ul Negative [facility] RBC Ql (U) 0 SEEN /hpf 0-5 [facility] Urine clarityOrdered By: Ivy Shepard on 03-06-2023 Clarity (U) Clear Clear [facility] Urine color determinationOrd ered By: Rickey Shepard on 03-06-2023 Color (U) Yellow Yellow [facility] Urine glucose detectionOrder ed By: Rickey Shepard on 03-06-2023 Glucose Ql (U) 100 mg/dl Normal [facility] Urine leukocyte esterase det ection by dipstickOrdered By: Rickey Shepard on 03-06-2023 Leukocyte esterase Test strip Ql (U) 25 /ul Negative [facility] Urine pHOrdered By: Rickey webb on 03-06-2023 pH (U) 7.0 [pH] 5.0 - 8.0 [facility] Urine sediment bacteria coun t by microscopy (number/high power field)Ordered By: Rickey Shepard on 03-06-2023 Bacteria LM.HPF (Urine sed) [#/Area] RARE /hpf None Seen [facility] Urine specific gravity measu rementOrdered By: Rickey Shepard on 03-06-2023 Specific gravity (U) [Rel density] 1.010 1.002-1.030 [facility] Urobilinogen Auto test strip Ql (U)Ordered By: Rickey Shepard on 03-06-2023 Urobilinogen Ql (U) Normal mg/dl Normal [facility] Basic metabolic 2000 panelon 03-04-2023 Anion gap [Moles/Vol] 14 mmol/L Normal 9-18 [facility] Comment on above: Order Comment: Speci men Type: BLOOD SPECIMENOrdering Facility: [facility] Address: [address] [place] [address] [place] [address] Performed By: #### 2 4321-2 ####[facility] LABORATORYCLIA [id number] [place] [address] [place] Calcium [Mass/Vol] 8.9 mg/dL Normal 8.5-10.2 [facility] Comment on above: Order Comment: Speci men Type: BLOOD SPECIMENOrdering Facility: [facility] Address: [address] [place] [address] Performed By: #### 2 4321-2 ####[facility] LABORATORYCLIA [id number] [place] [address] [place] Chloride [Moles/Vol] 102 mmol/L Normal 97-105 [facility] Comment on above: Order Comment: Speci men Type: BLOOD SPECIMENOrdering Facility: [facility] Address: [address] [place] [address] Performed By: #### 2 4321-2 ####[facility] LABORATORYCLIA [id number] [place] [address] [place] CO2 [Moles/Vol] 21 mmol/L Low 22-30 [facility] Comment on above: Order Comment: Speci men Type: BLOOD SPECIMENOrdering Facility: [facility] Address: [address] [place] [address] Performed By: #### 2 4321-2 ####[facility] LABORATORYCLIA [id number] [place] [address] [place] Creatinine [Mass/Vol] 0.78 mg/dL Normal 0.58-0.96 [facility] Comment on above: Order Comment: Speci men Type: BLOOD SPECIMENOrdering Facility: [facility] Address: [address] [place] [address] Performed By: #### 2 4321-2 ####[facility] LABORATORYCLIA [id number] [place] [address] [place] Creatinine and Glomerular filtration rate.predicted panel (S/P/Bld) 104 mL/min/1.73m??? Normal >=60 [facility] Comment on above: Order Comment: Mahogany vargas Type: BLOOD SPECIMENOrdering Facility: [facility] Address: [address] [place] [address] Result Comment: Samreen mated Glomerular Filtration Rate [...] actual GFR. Performed By: #### 2 4321-2 ####[facility] LABORATORYCLIA [id number] [place] [address] [place] Glucose [Mass/Vol] 158 mg/dL High 74-99 [facility] Comment on above: Order Comment: Mahogany vargas Type: BLOOD SPECIMENOrdering Facility: [facility] Address: [address] [place] [address] Result Comment: The [place] [employer] (ADA) provides guidance for cutoff [...] Standards of Medical Care in Diabetes 2016, [place] [employer]. Diabetes Care. 2016.39(Suppl 1). Performed By: #### 2 4321-2 ####[facility] LABORATORYCLIA [id number] [place] [address] [place] Potassium [Moles/Vol] 3.3 mmol/L Low 3.7-5.1 [facility] Comment on above: Order Comment: Mahogany vargas Type: BLOOD SPECIMENOrdering Facility: [facility] Address: [address] [place] [address] Performed By: #### 2 4321-2 ####[facility] LABORATORYCLIA [id number] [place] [address] [place] Sodium [Moles/Vol] 137 mmol/L Normal 136-144 [facility] Comment on above: Order Comment: Speci men Type: BLOOD SPECIMENOrdering Facility: [facility] Address: [address] [place] [address] Performed By: #### 2 4321-2 ####[facility] LABORATORYCLIA [id number] [place] [address] [place] Urea nitrogen [Mass/Vol] 4 mg/dL Low 7-21 [facility] Comment on above: Order Comment: Speci men Type: BLOOD SPECIMENOrdering Facility: [facility] Address: [address] [place] [address] Performed By: #### 2 4321-2 ####[facility] LABORATORYCLIA [id number] [place] [address] [place] CBC panel Auto (Bld)on 03-04 Erythrocyte distribution width (RBC) [Ratio] 13.5 % Normal 11.5-15.0 [facility] Comment on above: Order Comment: Speci men Type: BLOOD SPECIMENOrdering Facility: [facility] Address: [address] [place] [address] Performed By: #### 5 8410-2 ####[facility] LABORATORYCLIA [id number] [place] [address] [place] Hematocrit (Bld) [Volume fraction] 34.2 % Low 36.0-46.0 [facility] Comment on above: Order Comment: Speci men Type: BLOOD SPECIMENOrdering Facility: [facility] Address: [address] [place] [address] Performed By: #### 5 8410-2 ####[facility] LABORATORYCLIA [id number] [address] [place] Hemoglobin (Bld) [Mass/Vol] 11.5 g/dL Normal 11.5-15.5 [facility] Comment on above: Order Comment: Speci men Type: BLOOD SPECIMENOrdering Facility: [facility] Address: [address] [place] [address] Performed By: #### 5 8410-2 ####[facility] LABORATORYCLIA [id number] [address] MCH (RBC) [Entitic mass] 27.4 pg Normal 26.0-34.0 [facility] Comment on above: Order Comment: Speci men Type: BLOOD SPECIMENOrdering Facility: [facility] Address: [address] [place] [address] Performed By: #### 5 8410-2 ####[facility] LABORATORYCLIA [id number] [address] [place] [facility] MCHC (RBC) [Mass/Vol] 33.6 g/dL Normal 30.5-36.0 [facility] Comment on above: Order Comment: Speci men Type: BLOOD SPECIMENOrdering Facility: [facility] Address: [address] [place] [address] Performed By: #### 5 8410-2 ####[facility] LABORATORYCLIA [id number] [address] [place] MCV (RBC) [Entitic vol] 81.6 fL Normal 80.0-100.0 [facility] Comment on above: Order Comment: Speci men Type: BLOOD SPECIMENOrdering Facility: [facility] Address: [address] [place] [address] Performed By: #### 5 8410-2 ####[facility] LABORATORYCLIA [id number] [address] [place] Nucleated RBC (Bld) [#/Vol] 10*3/uL Normal <0.01 [facility] Comment on above: Order Comment: Speci men Type: BLOOD SPECIMENOrdering Facility: [facility] Address: [address] [place] [address] Performed By: #### 5 8410-2 ####[facility] LABORATORYCLIA [id number] [place] [address] [place] Platelet mean volume (Bld) [Entitic vol] 9.3 fL Normal 9.0-12.7 [facility] Comment on above: Order Comment: Speci men Type: BLOOD SPECIMENOrdering Facility: [facility] Address: [address] [place] [address] Performed By: #### 5 8410-2 ####[facility] LABORATORYCLIA [id number] [place] [address] [place] Platelets (Bld) [#/Vol] 362 10*3/uL Normal 150-400 [facility] Comment on above: Order Comment: Speci men Type: BLOOD SPECIMENOrdering Facility: [facility] Address: [address] [place] [address] Performed By: #### 5 8410-2 ####[facility] LABORATORYCLIA [id number] [place] [address] [place] RBC (Bld) [#/Vol] 4.19 10*6/uL Normal 3.90-5.20 [facility] Comment on above: Order Comment: Speci men Type: BLOOD SPECIMENOrdering Facility: [facility] Address: [address] [place] [address] Performed By: #### 5 8410-2 ####[facility] LABORATORYCLIA [id number] [place] [address] [place] WBC (Bld) [#/Vol] 10.19 10*3/uL Normal 3.70-11.00 [facility] Comment on above: Order Comment: Speci men Type: BLOOD SPECIMENOrdering Facility: [facility] Address: [address] [place] [address] Performed By: #### 5 8410-2 ####[facility] LABORATORYCLIA [id number] [place] [address] [place] CNDSon 03-04-2023 CNDS HNO ID: [id number] Author: Saida Lopez MD Service: ? Author Type: Physician Type: Discharge Summary Filed: 03/05/2023 12:41 PM Note Text: DISCHARGE SUMMARY PATIENT NAME: Ghislaine Givens Code Status: Prior Admission Information Admission Information ADMIT DATE: 03/01/2023 DISCHARGE DATE: 03/04/2023 MY DOCTORS AND MEDICAL TEAM: [facility] Doctor: Saida Lopez MD Primary Care Provider: Amy Solorzano NP My Medical Team Members: Treatment Team: Attending Provider: Saida Lopez MD Consulting: Cayetano Tai MD MY [...] office evaluation. 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 Vomiting too frequent to count and constant [...] was prescribed stool softeners and laxatives during [facility] stay however she refuses to take [...] to discharge in AM. Discussed with social worker clinical/nurse outreach case manager. Advance diet. PLAN 03/04/23: Hemodynamically is stable. Has been walking a lot. Gets anxious. Seen by psych and GI. Discussed with social worker clinical/nurse outreach case manager. OK to discharge the patient. Rest of management as outpatient. I personally spent more than 30 minutes for discharge of this patient. Discussed with unit PA/KIER PLEATER about care plans. Recommended to see her psychiatrist as outpatient. Has had high BP readings. Will add Losartan. Is diabetic too.. Vitals and labs were closely monitored and evaluated while hospitalized. Electrolytes were replaced as needed. Patient is stable for discharge home today. Patient should follow up with primary care physician (Amy Solorzano: [phone]) in 7-10 days for hospital follow up. [...] Care A (more content not included)... Normal [facility] NURSING PROGon 03-04-2023 NURSING PROG HNO ID: [id number] Author: Shiloh Carl, RYNE Service: Nursing Author [...] given. Pt left stable. Due care given. [facility] NURSING PROG HNO ID: [id number] Author: Hilda Dunlap RN Service: ? Author Type: Registered Nurse Type: Nursing Progress Note Filed: 03/04/2023 3:31 PM Note Text: 0725: Assumed patient care at this time. Safety maintained. 1600: Discharge instructions completed at this time. IV removed. Safety maintained. Belongings with patient. Patient has no needs at this time. [facility] Basic metabolic 2000 panelon 03-03-2023 Anion gap [Moles/Vol] 12 mmol/L Normal 9-18 [facility] Comment on above: Order Comment: Speci men Type: BLOOD SPECIMENOrdering Facility: [facility] Address: [address] [place] [address] Performed By: #### 2 4321-2 ####[facility] LABORATORYCLIA [id number] [place] [address] [place] Calcium [Mass/Vol] 9.3 mg/dL Normal 8.5-10.2 [facility] Comment on above: Order Comment: Speci men Type: BLOOD SPECIMENOrdering Facility: [facility] Address: [address] [place] [address] Performed By: #### 2 4321-2 ####[facility] LABORATORYCLIA [id number] [place] [address] [place] Chloride [Moles/Vol] 103 mmol/L Normal 97-105 [facility] Comment on above: Order Comment: Speci men Type: BLOOD SPECIMENOrdering Facility: [facility] Address: [address] [address] Performed By: #### 2 4321-2 ####[facility]ORATORYCLIA [id number] [place] [address] [place] CO2 [Moles/Vol] 24 mmol/L Normal 22-30 [facility] Comment on above: Order Comment: Speci men Type: BLOOD SPECIMENOrdering Facility: [facility] Address: [address] [place] [address] Performed By: #### 2 4321-2 ####[facility] LABORATORYCLIA [id number] [place] [address] [place] Creatinine [Mass/Vol] 0.87 mg/dL Normal 0.58-0.96 [facility] Comment on above: Order Comment: Speci men Type: BLOOD SPECIMENOrdering Facility: [facility] Address: [address] [place] [address] Performed By: #### 2 4321-2 ####[facility] LABORATORYCLIA [id number] [place] [address] [place] Creatinine and Glomerular filtration rate.predicted panel (S/P/Bld) 91 mL/min/1.73m??? Normal >=60 [facility] Comment on above: Order Comment: Speci men Type: BLOOD SPECIMENOrdering Facility: [facility] Address: [address] [place] [address] Result Comment: Samreen mated Glomerular Filtration Rate [...] actual GFR. Performed By: #### 2 4321-2 ####[facility] LABORATORYCLIA [id number] [place] [id number] [place] Glucose [Mass/Vol] 137 mg/dL High 74-99 [facility] Comment on above: Order Comment: Mahogany vargas Type: BLOOD SPECIMENOrdering Facility: [facility] Address: [address] [place] [address] Result Comment: The [place] [employer] (ADA) provides guidance for cutoff [...] Standards of Medical Care in Diabetes 2016, [place] [employer]. Diabetes Care. 2016.39(Suppl 1). Performed By: #### 2 4321-2 ####[facility] LABORATORYCLIA [id number] [place] [address] [place] Potassium [Moles/Vol] 3.5 mmol/L Low 3.7-5.1 [facility] Comment on above: Order Comment: Mahogany vargas Type: BLOOD SPECIMENOrdering Facility: [facility] Address: [address] [place] [address] Performed By: #### 2 4321-2 ####[facility] LABORATORYCLIA [id number] [place] [address] [place] Sodium [Moles/Vol] 139 mmol/L Normal 136-144 [facility] Comment on above: Order Comment: Mahogany vargas Type: BLOOD SPECIMENOrdering Facility: [facility] Address: [address] [place] [address] Performed By: #### 2 4321-2 ####[facility] LABORATORYCLIA [id number] [place] [address] [place] Urea nitrogen [Mass/Vol] 6 mg/dL Low 7-21 [facility] Comment on above: Order Comment: Timuri men Type: BLOOD SPECIMENOrdering Facility: [facility] Address: [address] [place] [address] Performed By: #### 2 4321-2 ####[facility] LABORATORYCLIA [id number] [address] [place] CBC panel Auto (Bld)on 03-03 Erythrocyte distribution width (RBC) [Ratio] 13.2 % Normal 11.5-15.0 [facility] Comment on above: Order Comment: Speci men Type: BLOOD SPECIMENOrdering Facility: [facility] Address: [address] [place] [address] Performed By: #### 5 8410-2 ####[facility] LABORATORYCLIA [id number] [address] [place] [facility] Hematocrit (Bld) [Volume fraction] 36.1 % Normal 36.0-46.0 [facility] Comment on above: Order Comment: Speci men Type: BLOOD SPECIMENOrdering Facility: [facility] Address: [address] [place] [address] Performed By: #### 5 8410-2 ####[facility] LABORATORYCLIA [id number] [address] [place] Hemoglobin (Bld) [Mass/Vol] 12.2 g/dL Normal 11.5-15.5 [facility] Comment on above: Order Comment: Speci men Type: BLOOD SPECIMENOrdering Facility: [facility] Address: [address] [place] [address] Performed By: #### 5 8410-2 ####[facility] LABORATORYCLIA [id number] [address] [place] MCH (RBC) [Entitic mass] 27.4 pg Normal 26.0-34.0 [facility] Comment on above: Order Comment: Speci men Type: BLOOD SPECIMENOrdering Facility: [facility] Address: [address] [place] [address] Performed By: #### 5 8410-2 ####[facility] LABORATORYCLIA [id number] [place] [address] [place] MCHC (RBC) [Mass/Vol] 33.8 g/dL Normal 30.5-36.0 [facility] Comment on above: Order Comment: Speci men Type: BLOOD SPECIMENOrdering Facility: [facility] Address: [address] [place] [address] Performed By: #### 5 8410-2 ####[facility] LABORATORYCLIA [id number] [place] [address] [place] MCV (RBC) [Entitic vol] 81.1 fL Normal 80.0-100.0 [facility] Comment on above: Order Comment: Speci men Type: BLOOD SPECIMENOrdering Facility: [facility] Address: [address] [place] [address] Performed By: #### 5 8410-2 ####[facility] LABORATORYCLIA [id number] [place] [address] [place] Nucleated RBC (Bld) [#/Vol] 10*3/uL Normal <0.01 [facility] Comment on above: Order Comment: Speci men Type: BLOOD SPECIMENOrdering Facility: [facility] Address: [address] [place] [address] Performed By: #### 5 8410-2 ####[facility] LABORATORYCLIA [id number] [place] [address] [place] Platelet mean volume (Bld) [Entitic vol] 9.0 fL Normal 9.0-12.7 [facility] Comment on above: Order Comment: Speci men Type: BLOOD SPECIMENOrdering Facility: [facility] Address: [address] [place] [address] Performed By: #### 5 8410-2 ####[facility] LABORATORYCLIA [id number] [place] [address] [place] Platelets (Bld) [#/Vol] 397 10*3/uL Normal 150-400 [facility] Comment on above: Order Comment: Speci men Type: BLOOD SPECIMENOrdering Facility: [facility] Address: [address] [place] [address], [place] [address] Performed By: #### 5 8410-2 ####[facility] LABORATORYCLIA [id number] [place] [address] [facility] RBC (Bld) [#/Vol] 4.45 10*6/uL Normal 3.90-5.20 [facility] Comment on above: Order Comment: Speci men Type: BLOOD SPECIMENOrdering Facility: [facility] Address: [address] Performed By: #### 5 8410-2 ####[facility] LABORATORYCLIA [id number] [place] [address] [facility] WBC (Bld) [#/Vol] 13.15 10*3/uL High 3.70-11.00 [facility] Comment on above: Order Comment: Speci men Type: BLOOD SPECIMENOrdering Facility: [facility] Address: [address] [place] [address] Performed By: #### 5 8410-2 ####[facility] LABORATORYCLIA [id number] [place] [address] [facility] CONSULTon 03-03-2023 CONSULT HNO ID: [id number] Author: Cayetano Tai MD Service: Psychiatry Author [...] admitted with intractable vomiting. She is from [place], [place] and was in [place] for a GI appointment and was sent [...] DATE: March 03, 2023 TIME: 3:03 PM [facility] CT ABD/PEL W IVCONon 023 CT ABD/PEL W IVCON * * *Final Report* * * DATE OF EXAM: Mar 03 2023 11:01AM [facility] 0530 - CT ABD/PEL W IVCON / [...] Mar 03 2023 11:11AM EST [id number] Normal [facility] NURSING PROGon 03-03-2023 NURSING PROG HNO ID: [id number] Author: Anayeli Blue RN Service: PICC Team [...] 03, 2023 TIME: 10:46 AM PAGER/CONTACT #: [phone] [facility] NURSING PROG HNO ID: [id number] Author: Hilda Dunlap RN Service: ? Author [...] GI to come assess patient at bedside. [facility] ALLIED HEALTHon 03-02-2023 ALLIED HEALTH HNO ID: [id number] Author: Omari Juan RT(R) Service: Radiology Author [...] RT(R) March 02, 2023 5:12 PM Normal [facility] Basic metabolic 2000 panelon 03-02-2023 Anion gap [Moles/Vol] 12 mmol/L Normal 9-18 [facility] Comment on above: Order Comment: Speci men Type: BLOOD SPECIMENOrdering Facility: [facility] Address: [address] [place] [address] Performed By: #### 2 4321-2 ####[facility] LABORATORYCLIA [id number] [place] [address] [place] Calcium [Mass/Vol] 8.9 mg/dL Normal 8.5-10.2 [facility] Comment on above: Order Comment: Speci men Type: BLOOD SPECIMENOrdering Facility: [facility] Address: [address] [place] [address] Performed By: #### 2 4321-2 ####[facility] LABORATORYCLIA [id number] [place] [address] [place] Chloride [Moles/Vol] 102 mmol/L Normal 97-105 [facility] Comment on above: Order Comment: Speci men Type: BLOOD SPECIMENOrdering Facility: [facility] Address: [address] [place] [address] Performed By: #### 2 4321-2 ####[facility] LABORATORYCLIA [id number] [place] [address] [place] CO2 [Moles/Vol] 26 mmol/L Normal 22-30 [facility] Comment on above: Order Comment: Speci men Type: BLOOD SPECIMENOrdering Facility: [facility] Address: [address] [place] [address], [place] [address] Performed By: #### 2 4321-2 ####[facility] LABORATORYCLIA [id number] [place] [address] [place] Creatinine [Mass/Vol] 0.92 mg/dL Normal 0.58-0.96 [facility] Comment on above: Order Comment: Speci men Type: BLOOD SPECIMENOrdering Facility: [facility] Address: [address] [place] [address] Performed By: #### 2 4321-2 ####[facility] LABORATORYCLIA [id number] [place] [address] [place] Creatinine and Glomerular filtration rate.predicted panel (S/P/Bld) 86 mL/min/1.73m??? Normal >=60 [facility] Comment on above: Order Comment: Timuri alicia Type: BLOOD SPECIMENOrdering Facility: [facility] Address: [address] [place] [address] Result Comment: Samreen mated Glomerular Filtration Rate [...] actual GFR. Performed By: #### 2 4321-2 ####[facility] LABORATORYCLIA [id number] [place] [address] [place] Glucose [Mass/Vol] 162 mg/dL High 74-99 [facility] Comment on above: Order Comment: Timuri men Type: BLOOD SPECIMENOrdering Facility: [facility] Address: [address] [place] [address] Result Comment: The [place] Diabetes Association (ADA) provides guidance for cutoff [...] Standards of Medical Care in Diabetes 2016, [place] [employer]. Diabetes Care. 2016.39(Suppl 1). Performed By: #### 2 4321-2 ####[facility] LABORATORYCLIA [id number] [place] [address] [place] Potassium [Moles/Vol] 3.7 mmol/L Normal 3.7-5.1 [facility] Comment on above: Order Comment: Mahogany vargas Type: BLOOD SPECIMENOrdering Facility: [facility] Address: [address] [place] [address] Performed By: #### 2 4321-2 ####[facility] LABORATORYCLIA [id number] [place] [address] [place] Sodium [Moles/Vol] 140 mmol/L Normal 136-144 [facility] Comment on above: Order Comment: Mahogany vargas Type: BLOOD SPECIMENOrdering Facility: [facility] Address: [address] [place] [address] Performed By: #### 2 4321-2 ####[facility] LABORATORYCLIA [id number] [place] [address] [place] Urea nitrogen [Mass/Vol] 8 mg/dL Normal 7-21 [facility] Comment on above: Order Comment: Mahogany vargas Type: BLOOD SPECIMENOrdering Facility: [facility] Address: [address] [place] [address] Performed By: #### 2 4321-2 ####[facility] LABORATORYCLIA [id number] [place] [address] [place] CBC panel Auto (Bld)on 03-02 Erythrocyte distribution width (RBC) [Ratio] 13.4 % Normal 11.5-15.0 [facility] Comment on above: Order Comment: Mahogany vargas Type: BLOOD SPECIMENOrdering Facility: [facility] Address: [address] [place] [address] Performed By: #### 5 8410-2 ####[facility] LABORATORYCLIA [id number] [place] [address] [place] Hematocrit (Bld) [Volume fraction] 34.1 % Low 36.0-46.0 [facility] Comment on above: Order Comment: Speci men Type: BLOOD SPECIMENOrdering Facility: [facility] Address: [address] [place] [address] Performed By: #### 5 8410-2 ####[facility] LABORATORYCLIA [id number] [place] [address] [place] Hemoglobin (Bld) [Mass/Vol] 11.3 g/dL Low 11.5-15.5 [facility] Comment on above: Order Comment: Speci men Type: BLOOD SPECIMENOrdering Facility: [facility] Address: [address] [place] [address] Performed By: #### 5 8410-2 ####[facility] LABORATORYCLIA [id number] [place] [address] [place] MCH (RBC) [Entitic mass] 27.2 pg Normal 26.0-34.0 [facility] Comment on above: Order Comment: Speci men Type: BLOOD SPECIMENOrdering Facility: [facility] Address: [address] [place] [address] Performed By: #### 5 8410-2 ####[facility] LABORATORYCLIA [id number] [place] [address] [place] MCHC (RBC) [Mass/Vol] 33.1 g/dL Normal 30.5-36.0 [facility] Comment on above: Order Comment: Speci men Type: BLOOD SPECIMENOrdering Facility: [facility] Address: [address] [place] [address] Performed By: #### 5 8410-2 ####[facility] LABORATORYCLIA [id number] [place] [address] [place] MCV (RBC) [Entitic vol] 82.2 fL Normal 80.0-100.0 [facility] Comment on above: Order Comment: Speci men Type: BLOOD SPECIMENOrdering Facility: [facility] Address: [address] [place] [address] Performed By: #### 5 8410-2 ####[facility] LABORATORYCLIA [id number] [place] [address] [place] Nucleated RBC (Bld) [#/Vol] 10*3/uL Normal <0.01 [facility] Comment on above: Order Comment: Speci men Type: BLOOD SPECIMENOrdering Facility: [facility] Address: [address] [place] [address] Performed By: #### 5 8410-2 ####[facility] LABORATORYCLIA [id number] [place] [address] [place] Platelet mean volume (Bld) [Entitic vol] 9.4 fL Normal 9.0-12.7 [facility] Comment on above: Order Comment: Speci men Type: BLOOD SPECIMENOrdering Facility: [facility] Address: [address] [place] [address] Performed By: #### 5 8410-2 ####[facility] LABORATORYCLIA [id number] [place] [address] [place] Platelets (Bld) [#/Vol] 374 10*3/uL Normal 150-400 [facility] Comment on above: Order Comment: Speci men Type: BLOOD SPECIMENOrdering Facility: [facility] Address: [address] [place] [address] Performed By: #### 5 8410-2 ####[facility] LABORATORYCLIA [id number] [place] [address] [place] RBC (Bld) [#/Vol] 4.15 10*6/uL Normal 3.90-5.20 [facility] Comment on above: Order Comment: Speci men Type: BLOOD SPECIMENOrdering Facility: [facility] Address: [address] [place] [address] Performed By: #### 5 8410-2 ####[facility] LABORATORYCLIA [id number] [place] [address] [place] WBC (Bld) [#/Vol] 9.29 10*3/uL Normal 3.70-11.00 [facility] Comment on above: Order Comment: Speci men Type: BLOOD SPECIMENOrdering Facility: [facility] Address: [place] [address] Performed By: #### 5 8410-2 ####[facility] LABORATORYCLIA [id number] [place] [address] [facility] Neha 03-02-2023 CNPN Telephone (SPPRAD) GHISLAINE GIVENS ([id number]) 1990 F [place] Date Time Provider Department [...] Visit Diagnosis:Nausea [R11.0] Order(s):NM GASTRIC EMPTYING SOLID [8262150] Order #: [id number] FUTURE Prescriptions as of 01/31/2024 - acetaminophen [...] type 2) (HCC) [E11.9] 03/16/2013 Elevated BP [JZN2727] 04/28/2013 11/27/2013 HLD (hyperlipidemia) [E78.5] 11/27/2013 Tobacco use disorder [F17.200] 11/27/2013 Obesity, Class I, BMI 30-34.9 [E66.9] 02/18/2023 Intractable nausea and vomiting [R11.2] 02/18/2023 Severe protein-calorie malnutrition (HCC) [E43] 02/19/2023 Abdominal pain [R10.9] 03/01/2023 Constipation [K59.00] 03/02/2023 Anxiety and depression [F41.9, F32.A] 03/02/2023 Borderline personality disorder (HCC) [F60.3] 03/02/2023 Encounter Status:Closed by ALMITA KELLY on 01/31/24 [facility] CONSULTon 03-02-2023 CONSULT HNO ID: [id number] Author: Gen Bradford MD Service: Gastroenterology Author Type: Physician Type: Consults Filed: 03/02/2023 5:20 PM Note Text: [facility] STAFF PHYSICIAN NOTE OF PERSONAL [...] 02, 2023 Patient: Ghislaine Givens Medical Record: [id number] Reason for Consult: Abdominal pain, vomiting Requesting [...] mild gastritis and an esophageal ulcer at [facility]. She was escorted down from Dr. [...] as directed. Patient (more content not included)... [facility] HISTORY PHYSICALon 3 HISTORY PHYSICAL HNO ID: [id number] Author: Saida Lopez MD Service: ? Author [...] outpatient. 4. DM2 (diabetes mellitus, type 2) ([facility]) POA: Yes Monitor blood sugars closely. Use [...] office evaluation. 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 Vomiting too frequent to count and constant [...] was prescribed stool softeners and laxatives during [facility] stay however she refuses to take [...] daily bef (more content not included)... Normal [facility] XR ABDOMEN 1V SUPINEon 03-02 XR ABDOMEN [...] on Mar 02 2023 5:24PM EST [id number] [facility] CBC W Auto Differential pane l (Bld)on 03-01-2023 Basophils (Bld) [#/Vol] 0.04 10*3/uL Normal <0.11 [facility] Comment on above: Order Comment: Speci men Type: BLOOD SPECIMENOrdering Facility: [facility] Address: [address] [place] [address] Performed By: #### 5 7021-8 ####[facility] LABORATORYCLIA [id number] [place] [address] [place] Basophils/100 WBC (Bld) 0.3 % Normal [facility] Comment on above: Order Comment: Speci men Type: BLOOD SPECIMENOrdering Facility: [facility] Address: [address] [place] [place] [address] Performed By: #### 5 7021-8 ####[facility] LABORATORYCLIA [id number] [place] [address] [place] Differential cell count method Nom (Bld) Auto Normal [facility] Comment on above: Order Comment: Speci men Type: BLOOD SPECIMENOrdering Facility: [facility] Address: [address] [place] [place] [address] Performed By: #### 5 7021-8 ####[facility] LABORATORYCLIA [id number] [place] [address] [place] Eosinophils (Bld) [#/Vol] 0.03 10*3/uL Normal <0.46 [facility] Comment on above: Order Comment: Speci men Type: BLOOD SPECIMENOrdering Facility: [facility] Address: [address] [place] [place] [address] Performed By: #### 5 7021-8 ####[facility] LABORATORYCLIA [id number] [place] [address] [place] Eosinophils/100 WBC (Bld) 0.2 % Normal [facility] Comment on above: Order Comment: Speci men Type: BLOOD SPECIMENOrdering Facility: [facility] Address: [address] [place] [address] Performed By: #### 5 7021-8 ####[facility] LABORATORYCLIA [id number] [place] [address] [place] Erythrocyte distribution width (RBC) [Ratio] 13.6 % Normal 11.5-15.0 [facility] Comment on above: Order Comment: Speci men Type: BLOOD SPECIMENOrdering Facility: [facility] Address: [address] [place] [place] [address] Performed By: #### 5 7021-8 ####[facility] LABORATORYCLIA [id number] [place] [address] [place] Hematocrit (Bld) [Volume fraction] 41.4 % Normal 36.0-46.0 [facility] Comment on above: Order Comment: Speci men Type: BLOOD SPECIMENOrdering Facility: [facility] Address: [address] [place] [address] Performed By: #### 5 7021-8 ####[facility] LABORATORYCLIA [id number] [place] [address] [place] Hemoglobin (Bld) [Mass/Vol] 13.6 g/dL Normal 11.5-15.5 [facility] Comment on above: Order Comment: Speci men Type: BLOOD SPECIMENOrdering Facility: [facility] Address: [address] [place] [address] Performed By: #### 5 7021-8 ####[facility]ORATORYCLIA [id number] [place] [address] [place] Immature granulocytes (Bld) [#/Vol] 0.08 10*3/uL Normal <0.10 [facility] Comment on above: Order Comment: Speci men Type: BLOOD SPECIMENOrdering Facility: [facility] Address: [address] [place] [address] Performed By: #### 5 7021-8 ####[facility] LABORATORYCLIA [id number] [place] [address] [place] Immature granulocytes/100 WBC (Bld) 0.6 % Normal [facility] Comment on above: Order Comment: Speci men Type: BLOOD SPECIMENOrdering Facility: [facility] Address: [address] [place] [address] Performed By: #### 5 7021-8 ####[facility] LABORATORYCLIA [id number] [place] [address] [place] Lymphocytes (Bld) [#/Vol] 3.86 10*3/uL Normal 1.00-4.00 [facility] Comment on above: Order Comment: Speci men Type: BLOOD SPECIMENOrdering Facility: [facility] Address: [address] [place] [address] Performed By: #### 5 7021-8 ####[facility] LABORATORYCLIA [id number] [place] [address] [place] Lymphocytes/100 WBC (Bld) 28.3 % Normal [facility] Comment on above: Order Comment: Speci men Type: BLOOD SPECIMENOrdering Facility: [facility] Address: [address] [place] [place] [address] Performed By: #### 5 7021-8 ####[facility] LABORATORYCLIA [id number] [place] [address] [place] MCH (RBC) [Entitic mass] 26.8 pg Normal 26.0-34.0 [facility] Comment on above: Order Comment: Speci men Type: BLOOD SPECIMENOrdering Facility: [facility] Address: [address] [address] Performed By: #### 5 7021-8 ####[facility] LABORATORYCLIA [id number] [place] [address] [place] MCHC (RBC) [Mass/Vol] 32.9 g/dL Normal 30.5-36.0 [facility] Comment on above: Order Comment: Speci men Type: BLOOD SPECIMENOrdering Facility: [facility] Address: [address] [address] Performed By: #### 5 7021-8 ####[facility] LABORATORYCLIA [id number] [address] [place] MCV (RBC) [Entitic vol] 81.7 fL Normal 80.0-100.0 [facility] Comment on above: Order Comment: Speci men Type: BLOOD SPECIMENOrdering Facility: [facility] Address: [address] [place] [address] Performed By: #### 5 7021-8 ####[facility] LABORATORYCLIA [id number] [place] [address] [place] Monocytes (Bld) [#/Vol] 0.80 10*3/uL Normal <0.87 [facility] Comment on above: Order Comment: Speci men Type: BLOOD SPECIMENOrdering Facility: [facility] Address: [address] [address] Performed By: #### 5 7021-8 ####[facility] LABORATORYCLIA [id number] [place] [address] [place] Monocytes/100 WBC (Bld) 5.9 % Normal [facility] Comment on above: Order Comment: Speci men Type: BLOOD SPECIMENOrdering Facility: [facility] Address: [address] [place] [address] Performed By: #### 5 7021-8 ####[facility] LABORATORYCLIA [id number] [place] [address] [place] Neutrophils (Bld) [#/Vol] 8.85 10*3/uL High 1.45-7.50 [facility] Comment on above: Order Comment: Speci men Type: BLOOD SPECIMENOrdering Facility: [facility] Address: [address] [place] [address] Performed By: #### 5 7021-8 ####[facility] LABORATORYCLIA [id number] [place] [address] [place] Neutrophils/100 WBC (Bld) 64.7 % Normal [facility] Comment on above: Order Comment: Speci men Type: BLOOD SPECIMENOrdering Facility: [facility] Address: [address] [place] [address] Performed By: #### 5 7021-8 ####[facility] LABORATORYCLIA [id number] [place] [address] [place] Nucleated RBC (Bld) [#/Vol] 10*3/uL Normal <0.01 [facility] Comment on above: Order Comment: Speci men Type: BLOOD SPECIMENOrdering Facility: [facility] Address: [address] [place] [address] Performed By: #### 5 7021-8 ####[facility] LABORATORYCLIA [id number] [place] [address] [place] Nucleated RBC/100 WBC (Bld) [Ratio] 0.0 /100 WBC Normal [facility] Comment on above: Order Comment: Speci men Type: BLOOD SPECIMENOrdering Facility: [facility] Address: [address] [place] [address] Performed By: #### 5 7021-8 ####[facility] LABORATORYCLIA [id number] [place] [address] [place] Platelet mean volume (Bld) [Entitic vol] 9.3 fL Normal 9.0-12.7 [facility] Comment on above: Order Comment: Speci men Type: BLOOD SPECIMENOrdering Facility: [facility] Address: [address] [place] [address] Performed By: #### 5 7021-8 ####[facility] LABORATORYCLIA [id number] [place] [address] [place] Platelets (Bld) [#/Vol] 495 10*3/uL High 150-400 [facility] Comment on above: Order Comment: Speci men Type: BLOOD SPECIMENOrdering Facility: [facility] Address: [address] [place] [address] Performed By: #### 5 7021-8 ####[facility] LABORATORYCLIA [id number] [place] [address] [place] RBC (Bld) [#/Vol] 5.07 10*6/uL Normal 3.90-5.20 [facility] Comment on above: Order Comment: Speci men Type: BLOOD SPECIMENOrdering Facility: [facility] Address: [address] [place] [address] Performed By: #### 5 7021-8 ####[facility] LABORATORYCLIA [id number] [place] [address] [place] WBC (Bld) [#/Vol] 13.66 10*3/uL High 3.70-11.00 [facility] Comment on above: Order Comment: Speci men Type: BLOOD SPECIMENOrdering Facility: [facility] Address: [address] [place] [address] Performed By: #### 5 7021-8 ####[facility] LABORATORYCLIA [id number] [address] [place] Comprehensive metabolic 2000 panelon 03-01-2023 Albumin [Mass/Vol] 4.1 g/dL Normal 3.9-4.9 [facility] Comment on above: Order Comment: Speci men Type: BLOOD SPECIMENOrdering Facility: [facility] Address: [address] [address] Performed By: #### [place], [address]-9, 3040-3, 18110-6 ####[facility] LABORATORYCLIA [id number] [place] [address] [place] ALP [Catalytic activity/Vol] 102 U/L Normal 34-123 [facility] Comment on above: Order Comment: Speci men Type: BLOOD SPECIMENOrdering Facility: [facility] Address: [address] [address] Performed By: #### [place], [address]-6, 3040-3, 91285-0 ####[facility] [facility]ITAL LABORATORYCLIA [id number] [address] [place] ALT [Catalytic activity/Vol] 10 U/L Normal 7-38 [facility] Comment on above: Order Comment: Speci men Type: BLOOD SPECIMENOrdering Facility: [facility] Address: [address] [address] Performed By: #### Tarik HB, , 3040-3, 23310-4 ####[facility] LABORATORYCLIA [id number] [address] [place] Anion gap [Moles/Vol] 15 mmol/L Normal 9-18 [facility] Comment on above: Order Comment: Speci men Type: BLOOD SPECIMENOrdering Facility: [facility] Address: [address] [address] Performed By: #### [place], 85034-7, 3040-3, 37088-5 ####[facility] LABORATORYCLIA [id number] [place] [address] [place] AST [Catalytic activity/Vol] 12 U/L Low 13-35 [facility] Comment on above: Order Comment: Speci men Type: BLOOD SPECIMENOrdering Facility: [facility] Address: [address] [address] Performed By: #### B HB, 26787-1, 3040-3, 20896-7 ####[facility] LABORATORYCLIA [id number] [place] [address] [place] Bilirubin [Mass/Vol] 0.4 mg/dL Normal 0.2-1.3 [facility] Comment on above: Order Comment: Speci men Type: BLOOD SPECIMENOrdering Facility: [facility] Address: [address] [place] [address] Performed By: #### [place], 52768-6, 3040-3, 52048-4 ####[facility] LABORATORYCLIA [id number] [place] [address] [place] Calcium [Mass/Vol] 9.8 mg/dL Normal 8.5-10.2 [facility] Comment on above: Order Comment: Speci men Type: BLOOD SPECIMENOrdering Facility: [facility] Address: [address] [place] [address] Performed By: #### [place], 89609-0, 3040-3, 08900-5 ####[facility] LABORATORYCLIA [id number] [place] [address] [place] Chloride [Moles/Vol] 95 mmol/L Low 97-105 [facility] Comment on above: Order Comment: Speci men Type: BLOOD SPECIMENOrdering Facility: [facility] Address: [address] [place] [address] Performed By: #### B HB, 95686-4, 3040-3, 19364-4 ####[facility] LABORATORYCLIA [id number] [place] [address] [place] CO2 [Moles/Vol] 23 mmol/L Normal 22-30 [facility] Comment on above: Order Comment: Speci men Type: BLOOD SPECIMENOrdering Facility: [facility] Address: [address] [place] [address] Performed By: #### B HB, 24643-2, 3040-3, 40183-7 ####[facility] LABORATORYCLIA [id number] [place] [address] [place] Creatinine [Mass/Vol] 1.02 mg/dL High 0.58-0.96 [facility] Comment on above: Order Comment: Mahogany vargas Type: BLOOD SPECIMENOrdering Facility: [facility] Address: [address] [place] [address] Performed By: #### B HB, 37453-4, 3039-3, ####[facility] LABORATORYCLIA [id number] [address] [place] Creatinine and Glomerular filtration rate.predicted panel (S/P/Bld) 76 mL/min/1.73m??? Normal >=60 [facility] Comment on above: Order Comment: Mahogany vargas Type: BLOOD SPECIMENOrdering Facility: [facility] Address: [address] [place] [address] Result Comment: Samreen mated Glomerular Filtration Rate [...] actual GFR. Performed By: #### B [place], 50553-5, 3, ####[facility] LABORATORYCLIA [id number] [place] [address] [place] Glucose [Mass/Vol] 258 mg/dL High 74-99 [facility] Comment on above: Order Comment: Mahogany alicia Type: BLOOD SPECIMENOrdering Facility: [facility] Address: [address] [place] [address] Result Comment: The [place] Diabetes Association (ADA) provides guidance for cutoff [...] Standards of Medical Care in Diabetes 2016, [place] [employer]. Diabetes Care. 2016.39(Suppl 1). Performed By: #### B HB, 90660-7, 3040-3, 19891-1 ####[facility] LABORATORYCLIA [id number] [place] [address] [place] Potassium [Moles/Vol] 3.5 mmol/L Low 3.7-5.1 [facility] Comment on above: Order Comment: Mahogany vargas Type: BLOOD SPECIMENOrdering Facility: [facility] Address: [address] [place] [address] Performed By: #### B HB, , 3039-3, 82225-4 ####[facility] LABORATORYCLIA [id number] [place] [address] [place] Protein [Mass/Vol] 8.5 g/dL High 6.3-8.0 [facility] Comment on above: Order Comment: Mahogany vargas Type: BLOOD SPECIMENOrdering Facility: [facility] Address: [address] [place] [address] Performed By: #### B HB, , 3039-3, 88884-5 ####[facility] LABORATORYCLIA [id number] [place] [address] [place] Sodium [Moles/Vol] 133 mmol/L Low 136-144 [facility] Comment on above: Order Comment: Mahogany vargas Type: BLOOD SPECIMENOrdering Facility: [facility] Address: [address] [place] [address] Performed By: #### B HB, , 0-3, 69887-6 ####[facility] LABORATORYCLIA [id number] [place] [address] [place] Urea nitrogen [Mass/Vol] 11 mg/dL Normal 01-29 [facility] Comment on above: Order Comment: Speci men Type: BLOOD SPECIMENOrdering Facility: [facility] Address: [address] [id number] Performed By: #### B HB, 41442-7, 3040-3, 07434-7 ####[facility] LABORATORYCLIA [id number] [address] ECG COMPLETEon 03-01-2023 ECG COMPLETE Ventricular Rate : 8 3 BPM Atrial Rate : 83 BPM P-R Interval : 126 ms QRS Duration : 90 ms Q-T Interval : 358 ms QTC Calculation(Bazett) : 420 ms Calculated P Sidman : 5 degrees Calculated R Sidman : 1 degrees Calculated T Sidman : 13 degrees NORMAL SINUS RHYTHM MINIMAL VOLTAGE CRITERIA FOR LVH, MAY BE NORMAL VARIANT ( R in aVL ) NONSPECIFIC T WAVE ABNORMALITY ABNORMAL ECG NO PREVIOUS ECGS AVAILABLE Confirmed by ARABELLA SARMIENTO DO (), editorial project manager NORMAN GARVEY ([id number]) on 03/02/2023 7:20:55 AM NAME : GHISLAINE GIVENS PID : [id number] : 1990 Gender : Female Race : ORD : [id number] Procedure Date : Mar 01 2023 11:58:01 Edit Date : Mar 02 2023 07:20:56 Diagnosis: NORMAL SINUS RHYTHM MINIMAL VOLTAGE CRITERIA FOR LVH, MAY BE NORMAL VARIANT ( R in aVL ) NONSPECIFIC T WAVE ABNORMALITY ABNORMAL ECG NO PREVIOUS ECGS AVAILABLE Confirmed by ARABELLA SARMIENTO DO (), editorial project manager NORMAN GARVEY ([id number]) on 03/02/2023 7:20:55 AM Test Reason : Chest Pain Location : 1 : 1 ED Overread By : ARABELLA SARMIENTO DO Edited By : NORMAN GARVEY Referred By : , Acquired by : , [facility] ED NOTEon 03-01-2023 ED NOTE HNO ID: [id number] Author: Gayathri Bruno RN Service: ? Author Type: Registered Nurse Type: ED Notes Filed: 03/01/2023 5:12 PM Note Text: NG tube removed without complications. [facility] ED NOTE HNO ID: [id number] Author: Wherry, Luzma M, RN Service: Emergency Medicine Author Type: Registered Nurse Type: ED Notes Filed: 03/01/2023 5:05 PM Note Text: Patient crying and yelling in room to take out her NG tube. Provider aware. [facility] ED NOTE HNO ID: [id number] Author: Dewayne Gallagher RN Service: ? Author Type: Registered Nurse Type: ED Notes Filed: 03/01/2023 11:20 AM Note Text: Pt has longstanding pmh abd pain with n/v, had upper gi scope done at [facility] 02/19/23 that showed mild gastritis. Pt was in [facility] office for first visit, escorted down here by nursing staff. Pt denies diarrhea, sts too many episodes of vomiting to count, sts maybe a little when asked about hematemesis. Pt sts she hasnt smoked thc in 3 mos since all this started, sts ongoing issue for past 3 mos. [facility] ED PROV NOTEon 03-01-2023 ED PROV NOTE HNO ID: [id number] Author: Arabella Sarmiento DO Service: Emergency Medicine [...] office evaluation. 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 Vomiting too frequent to count and constant [...] was prescribed stool softeners and laxatives during [facility] stay however she refuses to take them because she feels they worsen abdominal pain. She was also prescribed narcotic pain medication for home which she states she has been taking. History provided by: Patient science interpreter used: No PAST MEDICAL HISTORY Diagnosis Date [...] no abdomin (more content not included)... Normal [facility] KETONES/ACETONE/BHBon 2022 Beta hydroxybutyrate [Moles/Vol] 0.70 mmol/L High <0.28 [facility] Comment on above: Order Comment: Speci men Type: BLOOD SPECIMENOrdering Facility: [facility] Address: [address] [place] [address] Performed By: #### [place], 77273-0, 3040-3, 06057-1 ####[facility] LABORATORYCLIA [id number] [place] [address] [place] Lipase SerPl-cCncon 03-01-20 23 Lipase [Catalytic activity/Vol] 57 U/L Normal 16-61 [facility] Comment on above: Order Comment: Speci men Type: BLOOD SPECIMENOrdering Facility: [facility] Address: [address] [place] [address] Performed By: #### B HB, 81285-0, 3040-3, 82707-8 ####[facility] LABORATORYCLIA [id number] [place] [address] [place] Magnesium SerPl-mCncon 03-01 Magnesium [Mass/Vol] 1.7 mg/dL Normal 1.7-2.3 [facility] Comment on above: Order Comment: Speci men Type: BLOOD SPECIMENOrdering Facility: [facility] Address: [address] [place] [address] Performed By: #### B HB, 58463-9, 3040-3, 54910-5 ####[facility] LABORATORYCLIA [id number] [place] [address] [place] TOX SCREEN ROUT URon 023 Amphetamines Confirm (U) [Mass/Vol] Negative Normal Negative [facility] Comment on above: Order Comment: Speci men Type: URINE SPECIMENOrdering Facility: [facility] Address: [address] [place] [address] Result Comment: Cuto ff threshold at 1000 ng/mL. Performed By: #### U TOX2 ####[facility] LABORATORYCLIA [id number] [place] [address] [place] BARBITURATES, URINE Negative Normal Negative [facility] Comment on above: Order Comment: Speci men Type: URINE SPECIMENOrdering Facility: [facility] Address: [address] [place] [address] Result Comment: Cuto ff threshold at 200 ng/mL. Performed By: #### U TOX2 ####[facility] LABORATORYCLIA [id number] [place] [address] [place] BENZODIAZEPINES, UR Negative Normal Negative [facility] Comment on above: Order Comment: Speci men Type: URINE SPECIMENOrdering Facility: [facility] Address: [address] [place] [address] Result Comment: Cuto ff threshold at 200 ng/mL. Performed By: #### U TOX2 ####[facility] LABORATORYCLIA [id number] [place] [address] [place] Cannabinoids Screen Ql (U) Negative Normal Negative [facility] Comment on above: Order Comment: Speci men Type: URINE SPECIMENOrdering Facility: [facility] Address: [address] [place] [address] Result Comment: Cuto ff threshold at 50 ng/mL. Performed By: #### U TOX2 ####[facility]ORATORYCLIA [id number] [place] [address] [place] Cocaine Ql (U) Negative Normal Negative [facility] Comment on above: Order Comment: Speci men Type: URINE SPECIMENOrdering Facility: [facility] Address: [address] [place] [address] Result Comment: Cuto ff threshold at 300 ng/mL. Performed By: #### U TOX2 ####[facility] LABORATORYCLIA [id number] [place] [address] [place] Ethanol (U) [Mass/Vol] <11 Normal <11 So [facility] Comment on above: Order Comment: Speci men Type: URINE SPECIMENOrdering Facility: [facility] Address: [address] [place] [address] Performed By: #### U TOX2 ####[facility] LABORATORYCLIA [id number] [address] [place] Opiates Screen Ql (U) Positive Abnormal Negative [facility] Comment on above: Order Comment: Speci men Type: URINE SPECIMENOrdering Facility: [facility] Address: [address] [place] [address] Result Comment: Cuto ff threshold at 300 ng/mL. Performed By: #### U TOX2 ####[facility]ORATORYCLIA [id number] [address] [place] oxyCODONE cutoff Screen (U) [Mass/Vol] Negative Normal Negative [facility] Comment on above: Order Comment: Speci men Type: URINE SPECIMENOrdering Facility: [facility] Address: [address] [place] [address] Result Comment: Cuto ff threshold at 100 ng/mL. Performed By: #### U TOX2 ####[facility]ORATORYCLIA [id number] [address] [place] Phencyclidine Ql (U) Negative Normal Negative [facility] Comment on above: Order Comment: Speci men Type: URINE SPECIMENOrdering Facility: [facility] Address: [address] [place] [address] Result Comment: Cuto ff threshold at 25 ng/mL. Performed By: #### U TOX2 ####[facility] LABORATORYCLIA [id number] [place] [address] [place] Urinalysis complete panel (U )on 03-01-2023 Bacteria LM.HPF (Urine sed) [#/Area] Moderate Abnormal None Seen [facility] Comment on above: Order Comment: Speci men Type: URINE SPECIMENOrdering Facility: [facility] Address: [address] [place] [address] Performed By: #### 2 4356-8 ####[facility] CENTERCLIA [id number] [place] [address] [place] Bilirubin Ql (U) 1+ Abnormal Negative [facility] Comment on above: Order Comment: Speci men Type: URINE SPECIMENOrdering Facility: [facility] Address: [address] [place] [address] Result Comment: Sugg est correlation with clinical findings and serum bilirubin if clinically indicated. Performed By: #### 2 4356-8 ####[facility] LABORATORYCLIA [id number] [place] [address] [place] Clarity (Unsp spec) Cloudy Abnormal Clear [facility] Comment on above: Order Comment: Speci men Type: URINE SPECIMENOrdering Facility: [facility] Address: [address] [place] [address] Performed By: #### 2 4356-8 ####[facility] LABORATORYCLIA [id number] [place] [address] [place] Color (U) Yellow Normal Yellow [facility] Comment on above: Order Comment: Speci men Type: URINE SPECIMENOrdering Facility: [facility] Address: [address] [address] Performed By: #### 2 4356-8 ####[facility] LABORATORYCLIA [id number] [place] [address] [place] Epithelial cells LM.HPF (Urine sed) [#/Area] Many Normal [facility] Comment on above: Order Comment: Speci men Type: URINE SPECIMENOrdering Facility: [facility] Address: [address] [place] [address] Result Comment: Few Performed By: #### 2 4356-8 ####[facility] LABORATORYCLIA [id number] [place] [address] [place] Glucose Test strip (U) [Mass/Vol] Trace Abnormal Negative [facility] Comment on above: Order Comment: Speci men Type: URINE SPECIMENOrdering Facility: [facility] Address: [address] [place] [address] Performed By: #### 2 4356-8 ####[facility] LABORATORYCLIA [id number] [place] [address] [place] Hemoglobin Ql (U) Negative Normal Negative, Trace [facility] Comment on above: Order Comment: Speci men Type: URINE SPECIMENOrdering Facility: [facility] Address: [address] [place] [address] Performed By: #### 2 4356-8 ####[facility] LABORATORYCLIA [id number] [place] [address] [place] Hyaline casts (Urine sed) [#/Area] 1-3 /LPF Abnormal 0 /LPF [facility] Comment on above: Order Comment: Speci men Type: URINE SPECIMENOrdering Facility: [facility] Address: [address] [place] [address] Performed By: #### 2 4356-8 ####[facility] LABORATORYCLIA [id number] [place] [address] [place] Ketones Ql (U) Trace Abnormal Negative [facility] Comment on above: Order Comment: Speci men Type: URINE SPECIMENOrdering Facility: [facility] Address: [address] [address] Performed By: #### 2 4356-8 ####[facility] LABORATORYCLIA [id number] [place] [address] [place] Leukocyte esterase Test strip Ql (U) Negative Normal Negative [facility] Comment on above: Order Comment: Speci men Type: URINE SPECIMENOrdering Facility: [facility] Address: [address] [place] [address] Performed By: #### 2 4356-8 ####[facility] LABORATORYCLIA [id number] [place] [address] [place] Nitrite Ql (U) Negative Normal Negative [facility] Comment on above: Order Comment: Speci men Type: URINE SPECIMENOrdering Facility: [facility] Address: [address] [place] [address] Performed By: #### 2 4356-8 ####[facility] LABORATORYCLIA [id number] [place] [address] [place] pH (U) 5.5 [pH] Normal 5.0-8.0 [facility] Comment on above: Order Comment: Speci men Type: URINE SPECIMENOrdering Facility: [facility] Address: [address] [place] [address] Performed By: #### 2 4356-8 ####[facility] LABORATORYCLIA [id number] [place] [address] [place] Protein (U) [Mass/Vol] 2+ Abnormal Negative So [facility] Comment on above: Order Comment: Speci men Type: URINE SPECIMENOrdering Facility: [facility] Address: [address] [place] [address] Performed By: #### 2 4356-8 ####[facility] LABORATORYCLIA [id number] [place] [address] [place] RBC LM.HPF (Urine sed) [#/Area] 0-3 /HPF Normal 0-3 /HPF [facility] Comment on above: Order Comment: Speci men Type: URINE SPECIMENOrdering Facility: [facility] Address: [address] [place] [address] Performed By: #### 2 4356-8 ####[facility] LABORATORYCLIA [id number] [address] [place] Specific gravity (U) [Rel density] >=1.030 High 1.005-1.030 [facility] Comment on above: Order Comment: Speci men Type: URINE SPECIMENOrdering Facility: [facility] Address: [address] [place] [address] Performed By: #### 2 4356-8 ####[facility] LABORATORYCLIA [id number] [place] [address] [place] Urobilinogen Ql (U) 1.0 EU/dL Normal 0.2-1.0 EU/dL [facility] Comment on above: Order Comment: Speci men Type: URINE SPECIMENOrdering Facility: [facility] Address: [address] [place] [address] Performed By: #### 2 4356-8 ####[facility] LABORATORYCLIA [id number] [place] [address] [place] WBC LM.HPF (Urine sed) [#/Area] 0-5 /HPF Normal 0-5 /HPF [facility] Comment on above: Order Comment: Speci men Type: URINE SPECIMENOrdering Facility: [facility] Address: [address] [place] [address] Performed By: #### 2 4356-8 ####[facility] LABORATORYCLIA [id number] [place] [address] [place] Absolute lymphocyte countOrd ered By: Perico Norman on 02-26-2023 Lymphocytes Auto (Unsp spec) [#/Vol] 2.45 10*3/uL 0.83-4.51 [facility] Basophil percentageOrdered B y: Perico Norman on 02-26-2023 Basophil percentage 0-5 SEEN /hpf 0-5 [facility] Basophil percentage 271 mg/dL 74-106 [facility] Basophil percentage 9.3 g/dL 6.4-8.2 [facility] Basophil percentage 0.80 mg/dL 0.20-1.00 [facility] Basophil percentage 131 mmol/L 136-145 [facility] Basophil percentage 3.4 mmol/L 3.5-5.1 [facility] Basophil percentage 98 mmol/L 98-107 [facility] Basophils (Bld) [#/Vol] 16.2 10*3/uL 4.4-11.0 [facility] Basophils (Bld) [#/Vol] 12.3 10*3/uL 2.0-7.7 [facility] Basophils/100 WBC (Bld) 75.8 % 47-70 [facility] Basophils/100 WBC (Bld) 0.1 % 0-5 [facility] Basophils/100 WBC (Bld) 0.4 % 0-1 [facility] Bilirubin [Mass/Vol] 0.80 mg/dL 0.20-1.00 [facility] Comment on above: For patients on eltr ombopag therapy, use of Dimension [place] TBIL is not recommended. Chloride [Moles/Vol] 98 mmol/L 98-107 [facility] Eosinophils/100 WBC (Bld) 0.1 % 0-5 [facility] Glucose [Mass/Vol] 271 mg/dL 74-106 [facility] Comment on above: Glucose result great er than or equal to 200 mg/dLsuggests DIABETES MELLITUS per A.D.A. criteria. Neutrophils (Bld) [#/Vol] 12.3 10*3/uL 2.0-7.7 [facility] Neutrophils/100 WBC (Bld) 75.8 % 47-70 [facility] Potassium [Moles/Vol] 3.4 mmol/L 3.5-5.1 [facility] Protein [Mass/Vol] 9.3 g/dL 6.4-8.2 [facility] Sodium [Moles/Vol] 131 mmol/L 136-145 [facility] WBC (Bld) [#/Vol] 16.2 10*3/uL 4.4-11.0 [facility] Beta hCG serum qualOrdered B y: Perico Norman on 02-26-2023 Beta HCG ( test) Ql Negative [facility] Bilirubin Test strip Ql (U)O rdered By: Perico Norman on 02-26-2023 Bilirubin Ql (U) Negative Negative [facility] Blood erythrocytes count (nu mber/volume)Ordered By: Perico Norman on 02-26-2023 RBC (Bld) [#/Vol] 4.97 10*6/uL 4.2-5.4 [facility] Blood hemoglobin measurement (mass/volume)Ordered By: Perico Norman on 02-26-2023 Hemoglobin (Bld) [Mass/Vol] 13.3 g/dL 12.0-15.0 [facility] Blood lymphocytes/100 leukoc ytesOrdered By: Perico Norman on 02-26-2023 Lymphocytes/100 WBC (Bld) 15.1 % 19-41 [facility] Blood monocytes/100 leukocyt esOrdered By: Perico Norman on 02-26-2023 Monocytes/100 WBC (Bld) 8.0 % 0-10 [facility] Blood platelet mean volumeOr dered By: Perico Norman on 02-26-2023 Platelet mean volume (Bld) [Entitic vol] 9.1 fL 6.2-12.0 [facility] Determination of erythrocyte mean corpuscular volume (MCV)Ordered By: Perico Norman on 02-26-2023 MCV (RBC) [Entitic vol] 80.9 fL 81-99 [facility] Direct bilirubinOrdered By: Perico Norman on 02-26-2023 Bilirubin.direct [Mass/Vol] 0.22 mg/dL 0.00-0.30 [facility] Hematocrit Auto (Bld) [Volum e fraction]Ordered By: Perico Norman on 02-26-2023 Hematocrit (Bld) [Volume fraction] 40.2 % 37-47 [facility] Ketones Test strip Ql (U)Ord ered By: Perico Norman on 02-26-2023 Ketones Ql (U) 15 mg/dl Negative [facility] Laboratory - Chemistry and C hemistry - challengeOrdered By: Perico Norman on 02-26-2023 ALP [Catalytic activity/Vol] 108 U/L 45-117 [facility] ALT [Catalytic activity/Vol] 17 U/L 13-56 [facility] CO2 [Moles/Vol] 22.0 mmol/L 21.0-32.0 [facility] Globulin (S) [Mass/Vol] 5.7 g/dL 2.2-4.2 [facility] Lipase [Catalytic activity/Vol] 64 U/L 13-75 [facility] Comment on above: Please note:LIPASE r evised reference range effective 22. New Lipase methodology. Expected to produce lower values than the previous assay method. NEW Reference Range: 13 - 75 U/L Magnesium [Mass/Vol] 2.0 mg/dL 1.6-2.6 [facility] Urea nitrogen/Creatinine [Mass ratio] 13.2 mg/mg 10-20 [facility] Laboratory - Hematology and Cell countsOrdered By: Perico Norman on 02-26-2023 Erythrocyte distribution width (RBC) [Entitic vol] 38.7 fL 35.1-43.9 [facility] Erythrocyte distribution width (RBC) [Ratio] 13.2 % 11.6-14.6 [facility] Immature granulocytes/100 WBC (Bld) 0.600 % 0.0-0.9 [facility] Comment on above: IG% - Immature Granu locytes (promyelocytes, myelocytes and metamyelocytes) > 1% indicates that a LEFT SHIFT is Present. MCH (RBC) [Entitic mass] 26.8 pg 27.0-32.0 [facility] Nucleated RBC/100 WBC (Bld) [Ratio] 0 % 0-5 [facility] MCHC Auto (RBC) [Mass/Vol]Or dered By: Perico Norman on 02-26-2023 MCHC (RBC) [Mass/Vol] 33.1 g/dL 32-36 [facility] Mucus LM Ql (Urine sed)Order ed By: Perico Norman on 02-26-2023 Mucus Ql (Urine sed) 0 SEEN /hpf [facility] Nitrite Test strip Ql (U)Ord ered By: Perico Norman on 02-26-2023 Nitrite Ql (U) Negative Negative [facility] No Panel InformationOrdered By: Perico Norman on 02-26-2023 Urine Transitional Epithelial Cells 0-5 SEEN /hpf 0-5 [facility] 0-5 SEEN /hpf 0-5 [facility] Estimated Creatinine Clearance Calc 50.20 ml/min [facility] Estimated GFR (MDRD) Amer 51 mL/min >60 [facility] Comment on above: GFR Calc Estimated GFR (MDRD) Non-Af Amer 42 mL/min >60 [facility] Comment on above: Non- GFR Calc 26.8 pg 27.0-32.0 [facility] 13.2 % 11.6-14.6 [facility] 38.7 fl 35.1-43.9 [facility] 0.600 % 0.0-0.9 [facility] 0 % 0-5 [facility] 42 mL/min >60 [facility] 51 mL/min >60 [facility] 50.20 ml/min [facility] 13.2 RATIO 10-20 [facility] 5.7 g/dL 2.2-4.2 [facility] 64 U/L 13-75 [facility] 108 U/L 45-117 [facility] 17 U/L 13-56 [facility] 2.0 mg/dL 1.6-2.6 [facility] 22.0 mmol/L 21.0-32.0 [facility] Platelets bldOrdered By: Bakari Norman on 02-26-2023 Platelets (Bld) [#/Vol] 483 10*3/uL 150-450 [facility] Protein Test strip Ql (U)Ord ered By: Perico Norman on 02-26-2023 Protein Ql (U) 30 mg/dl Negative [facility] Serum or plasma albumin hussein urement (mass/volume)Ordered By: Perico Norman on 02-26-2023 Albumin [Mass/Vol] 3.6 g/dL 3.2-5.0 [facility] Serum or plasma calcium hussein urement (mass/volume)Ordered By: Perico Norman on 02-26-2023 Calcium [Mass/Vol] 9.8 mg/dL 8.5-10.1 [facility] Serum or plasma creatinine m easurement (mass/volume)Ordered By: Perico Norman on 02-26-2023 Creatinine [Mass/Vol] 1.52 mg/dL 0.55-1.02 [facility] Comment on above: The validity of the calculated GFR & GFRAA in patients over 70 years has not been determined. Clinical correlation is essential. Serum or plasma urea nitroge n measurement (mass/volume)Ordered By: Perico Norman on 02-26-2023 Urea nitrogen [Mass/Vol] 20 mg/dL 7-18 [facility] Squamous epithelial cells de tection in urine sediment by light microscopyOrdered By: Perico Norman on 02-26-2023 Epithelial cells.squamous LM Ql (Urine sed) 0-5 SEEN /hpf 5-10 [facility] Thin prep Papanicolaou smear with manual screeningOrdered By: Perico Norman on 02-26-2023 Thin prep Papanicolaou smear with manual screening 12 U/L 15-37 [facility] Thin prep Papanicolaou smear with manual screening 11 5-15 [facility] Urine blood detectionOrdered By: Perico Norman on 02-26-2023 RBC Ql (U) 10 /ul Negative [facility] RBC Ql (U) 0 SEEN /hpf 0-5 [facility] Urine clarityOrdered By: Bakari Norman on 02-26-2023 Clarity (U) Clear Clear [facility] Urine color determinationOrd ered By: Perico Norman on 02-26-2023 Color (U) Yellow Yellow [facility] Urine glucose detectionOrder ed By: Perico Norman on 02-26-2023 Glucose Ql (U) 100 mg/dl Normal [facility] Urine leukocyte esterase det ection by dipstickOrdered By: Perico Norman on 02-26-2023 Leukocyte esterase Test strip Ql (U) 25 /ul Negative [facility] Urine pHOrdered By: Perico hernandez on 02-26-2023 pH (U) 5.0 [pH] 5.0 - 8.0 [facility] Urine sediment bacteria coun t by microscopy (number/high power field)Ordered By: Perico Norman on 02-26-2023 Bacteria LM.HPF (Urine sed) [#/Area] RARE /hpf None Seen [facility] Urine specific gravity measu rementOrdered By: Perico Norman on 02-26-2023 Specific gravity (U) [Rel density] 1.020 1.002-1.030 [facility] Urobilinogen Auto test strip Ql (U)Ordered By: Perico Norman on 02-26-2023 Urobilinogen Ql (U) Normal mg/dl Normal [facility] CBC + DIFFon 02-17-2023 Baso # 0.00 x10EE3/UL Normal 0.00 - 0.10 [facility] Comment on above: Performed By: #### 2 [id number] #### [facility],[address] [place] [address] Basophils/100 WBC (Bld) 0.4 % Normal 0.0 - 2.0 [facility] Comment on above: Performed By: #### 2 99132 #### [facility],[address] [place] [address] CBC + DIFF Normal [facility] Comment on above: Result Comment: CBC- COMPLETE BLOOD COUNT Performed By: #### 2 95547 #### [facility],[address] [place] [address] EO # 0.00 x10EE3/UL Normal 0.00 - 0.50 [facility] Comment on above: Performed By: #### 2 37444 #### [facility],[address] [place], [place] [id number] Eosinophils/100 WBC (Bld) 0.2 % Normal 0.0 - 7.0 [facility] Comment on above: Performed By: #### 2 52917 #### [facility],[address] [place], [place] [phone] Erythrocyte distribution width (RBC) [Ratio] 15.1 % Normal 12.0 - 15.6 [facility] Comment on above: Performed By: #### 2 43449 #### [facility],[address] [place] [address] Hematocrit (Bld) [Volume fraction] 39.7 % Normal 34.0 - 46.0 [facility] Comment on above: Performed By: #### 2 41684 #### [facility],[address] [place] [address] 67933 Hemoglobin (Bld) [Mass/Vol] 13.3 g/dL Normal 12.0 - 16.0 [facility] Comment on above: Performed By: #### 2 10473 #### [facility],[address] [place] [address] 95466 Lymph # 3.30 x10EE3/UL High 0.80 - 2.80 [facility] Comment on above: Performed By: #### 2 88900 #### [facility],[address] [place] [address] 79110 Lymphocytes/100 WBC (Bld) 30.5 % Normal 20.0 - 45.0 [facility] Comment on above: Performed By: #### 2 46318 #### [facility],[address] [place], [place] [phone] MANUAL DIFF N/A Normal [facility] Comment on above: Performed By: #### 2 02796 #### [facility],[address] [place] [address] 33844 MCH (RBC) [Entitic mass] 27 pg Normal 27 - 33 [facility] Comment on above: Performed By: #### 2 64619 #### [facility],[address] [place] [address] 70487 MCHC 33 X10 3 Normal 32 - 36 [facility] Comment on above: Performed By: #### 2 50075 #### [facility],[address] [place] [address] 59995 MCV (RBC) [Entitic vol] 80 fL Normal 80 - 99 [facility] Comment on above: Performed By: #### 2 56856 #### [facility],[address] [place] [address] 68676 Conway # 0.60 x10EE3/UL Normal 0.20 - 1.00 [facility] Comment on above: Performed By: #### 2 46969 #### [facility],[address] [place] [address] 21195 MONOS % 5.9 % Normal 0.0 - 10.0 [facility] Comment on above: Performed By: #### 2 18216 #### [facility],[address] [place] [address] 45542 Morphology Franky (Bld) [Interp] N/A Normal [facility] Comment on above: Result Comment: {CD] Performed By: #### 2 29055 #### [facility],[address] [place] [address] 08525 Neut # 6.90 x10EE3/UL Normal 1.50 - 7.10 [facility] Comment on above: Performed By: #### 2 76614 #### [facility],[address] [place] [address] 54755 Neutrophils/100 WBC (Bld) 63.0 % Normal 46.0 - 76.0 [facility] Comment on above: Performed By: #### 2 98263 #### [facility],[address] [place] [address] 17015 PLATELET 561 x10EE3/UL High 150 - 450 [facility] Comment on above: Performed By: #### 2 03609 #### [facility],[address] [place] [address] 19879 Platelet mean volume (Bld) [Entitic vol] 7.6 fL Normal 6.6 - 10.5 [facility] Comment on above: Result Comment: AUTO MATED DIFFERENTIAL Performed By: #### 2 09389 #### [facility],[address] [place] [address] 47686 RBC 4.95 x 10EE6/UL Normal 4.10 - 5.30 [facility] Comment on above: Performed By: #### 2 21135 #### [facility],[address] [place] [address] 83548 WBC 10.9 x 10EE3/UL High 4.5 - 10.8 [facility] Comment on above: Performed By: #### 2 50258 #### [facility],[address] [place] [address] 58514 CMP with eGFRon 02-17-2023 AGE 33 years Normal [facility] Comment on above: Performed By: #### 2 12810 #### [facility],[address] [place] [address] 91277 Albumin [Mass/Vol] 3.5 g/dL Normal 3.4 - 5.0 [facility] Comment on above: Performed By: #### 2 62491 #### [facility],[address] [place] [address] 27126 Albumin/Globulin [Mass ratio] 0.6 {ratio} Low 0.9 - 1.6 [facility] Comment on above: Performed By: #### 2 28394 #### [facility],[address] [place] [address] 03568 ALK PHOS 112 U/L Normal 46 - 116 [facility] Comment on above: Performed By: #### 2 70592 #### [facility],[address] [place] [address] 51312 ALT [Catalytic activity/Vol] 28 U/L Normal 14 - 59 [facility] Comment on above: Performed By: #### 2 51870 #### [facility],[address] [place] [address] 45452 Anion gap [Moles/Vol] 21 mmol/L High 10 - 20 [facility] Comment on above: Performed By: #### 2 32040 #### [facility],[address] [place] [address] 84637 AST [Catalytic activity/Vol] 13 U/L Normal 13 - 39 [facility] Comment on above: Performed By: #### 2 07374 #### [facility],[address] [place] [address] 25284 B/C RATIO 12 ratio Normal 0 - 30 [facility] Comment on above: Performed By: #### 2 35994 #### [facility],[address] [place] [address] 40571 Bilirubin [Mass/Vol] 0.6 mg/dL Normal 0.2 - 1.0 [facility] Comment on above: Performed By: #### 2 89131 #### [facility],[address] [place] [address] 31221 Calcium [Mass/Vol] 9.6 mg/dL Normal 8.5 - 10.1 [facility] Comment on above: Performed By: #### 2 75510 #### [facility],[address] [place] [address] 37749 Chloride [Moles/Vol] 94 mmol/L Low 98 - 107 [facility] Comment on above: Performed By: #### 2 76583 #### [facility],[address] [place] [address] 95839 CMP with eGFR Normal [facility] Comment on above: Result Comment: COMP REHENSIVE METABOLIC PANEL Performed By: #### 2 93464 #### [facility],[address] [place] [address] 06792 CO2 [Moles/Vol] 23.7 mmol/L Normal 21.0 - 32.0 [facility] Comment on above: Performed By: #### 2 36648 #### [facility],[address] [place] [address] 22783 Creatinine [Mass/Vol] 1.18 mg/dL High 0.55 - 1.02 [facility] Comment on above: Performed By: #### 2 28594 #### [facility],[address] [place] [address] 30236 eGFR 53 ML/MINUTE Low 60 - 999 [facility] Comment on above: Performed By: #### 2 34402 #### [facility],[address] [place] [address] 19606 GFR/1.73 sq M.predicted among non-blacks MDRD (S/P/Bld) [Vol rate/Area] mL/min/{1.73_m2} Normal 60 - 999 [facility] Comment on above: Result Comment: ACCO RDING TO THE NATIONAL KIDNEY DISEASE EDUCATION PROGRAM(NKDE), A NORMAL eGFR IS A VALUE GREATER THAN OR EQUAL TO 60 ML/MIN/1.73 SQ METERS. CHRONIC KIDNEY DISEASE: <60mL/MIN/1.73 SQ METERS KIDNEY FAILURE: <15mL/MIN/1.73 SQ METERS THIS TEST SHOULD ONLY BE USED FOR PATIENTS 18 YEARS OF AGE AND OLDER. Performed By: #### 2 00301 #### [facility],[address] [place] [address] 20361 Globulin (S) [Mass/Vol] 5.4 g/dL High 1.5 - 3.8 [facility] Comment on above: Performed By: #### 2 61834 #### [facility],[address] [place] [address] 49156 Glucose [Mass/Vol] 306 mg/dL High 74 - 106 [facility] Comment on above: Performed By: #### 2 58343 #### [facility],[address] [place] [address] 28037 Potassium [Moles/Vol] 3.9 mmol/L Normal 3.5 - 5.1 [facility] Comment on above: Performed By: #### 2 27785 #### [facility],[address] [place] [address] 74855 Protein [Mass/Vol] 8.9 g/dL High 6.4 - 8.2 [facility] Comment on above: Performed By: #### 2 34625 #### [facility],[address] [place] [address] 38748 Sodium [Moles/Vol] 135 mmol/L Low 136 - 145 [facility] Comment on above: Performed By: #### 2 07175 #### [facility],[address] [place] [address] 42622 Urea nitrogen [Mass/Vol] 14 mg/dL Normal 7 - 18 [facility] Comment on above: Performed By: #### 2 67026 #### [facility],[address] [facility] [address] DRUG SCREEN URINE MEDICon AMPHETAMINES Negative Normal [facility] Comment on above: Performed By: #### 2 10811 #### [facility],[address] [facility] [address] B-DIAZEPINES Negative Normal [facility] Comment on above: Performed By: #### 2 38931 #### [facility],[address] [facility] [address] BARBITURATES Negative Normal [facility] Comment on above: Performed By: #### 2 99651 #### [facility],[address] [facility] [address] COCAINE Negative [facility] Comment on above: Performed By: #### 2 36581 #### [facility],[address] [place] [address] 68864 DRUG SCREEN URINE MEDIC Normal [facility] Comment on above: Result Comment: DRUG SCREEN - URINE Performed By: #### 2 50136 #### [facility],[address] [facility] [address] METHADONE Negative [facility] Comment on above: Performed By: #### 2 91027 #### [facility],[address] [facility] [address] OPIATES Negative Normal [facility] Comment on above: Performed By: #### 2 15067 #### [facility],[address] [facility] [address] PCP Negative [facility] Comment on above: Performed By: #### 2 28553 #### [facility],[address] [facility] [address] THC Negative [facility] Comment on above: Result Comment: ERASTO ENTS RECEIVING PROTON PUMP INHIBITORS MAY DEMONSTRATE FALSE POSITIVE THC/CANNABINOID RESULTS. AN ALTERNATIVE CONFIRMATORY METHOD SHOULD BE CONSIDERED TO VERIFY POSITIVE RESULTS. Performed By: #### 2 15572 #### [facility],[address] [place], [place] [phone] LIPASEon 02-17-2023 Lipase [Catalytic activity/Vol] 103.0 U/L Normal 73.0 - 393 [facility] Comment on above: Performed By: #### 2 54463 #### [facility],[address] [place] [address] URINEon 02-17-2023 Beta HCG ( test) Ql (U) Negative Normal NEGATIVE [facility] Comment on above: Performed By: #### 2 43438 #### [facility],[address] [place] [address] EXTERNAL QC DONE? YES Normal [facility] Comment on above: Performed By: #### 2 69371 #### [facility],[address] [place] [address] INTERNAL QC PASS Normal [facility] Comment on above: Performed By: #### 2 97091 #### [facility],[address] [place], [place] [phone] URINALYSISon 02-17-2023 Amorphous NONE Normal [facility] Comment on above: Performed By: #### 2 24086 #### [facility],[address] [place] [address] Bacteria TRACE Normal [facility] Comment on above: Performed By: #### 2 67917 #### [facility],[address] [place], [place] [phone] Bilirubin Ql (U) Negative Normal NORMAL: NEGATIVE [facility] Comment on above: Performed By: #### 2 57384 #### [facility],[address] [place] [address] Casts NONE Normal [facility] Comment on above: Performed By: #### 2 79300 #### [facility],[address],[place] [address] Clarity (U) sl.cloudy Normal NORMAL: CLEAR [facility] Comment on above: Performed By: #### 2 29414 #### [facility],[address] [place] [address] 31590 Color (U) jaqui Normal NORMAL: YELLOW [facility] Comment on above: Performed By: #### 2 75966 #### [facility],[address] [place] [address] 84670 Crystals LM Nom (Urine sed) NONE Normal [facility] Comment on above: Performed By: #### 2 58521 #### [facility],[address] [place] [address] 42194 Epi Cells FEW Normal [facility] Comment on above: Performed By: #### 2 11670 #### [facility],[address] [place] [address] 95615 Glucose Ql (U) 250 Abnormal NORMAL: NORMAL [facility] Comment on above: Performed By: #### 2 20416 #### [facility],[address] [place] [address] 38991 Hemoglobin Ql (U) Negative Normal NORMAL: NEGATIVE [facility] Comment on above: Performed By: #### 2 14080 #### [facility],[address] [place] [address] 45828 Ketone 150 Abnormal NORMAL: NEGATIVE [facility] Comment on above: Performed By: #### 2 77949 #### [facility],[address] [place] [address] 21168 Leukocytes 25 Abnormal NORMAL: NEGATIVE [facility] Comment on above: Performed By: #### 2 18847 #### [facility],[address] [place] [address] 97516 Mucous NONE Normal [facility] Comment on above: Performed By: #### 2 67896 #### [facility],[address] [place] [address] 14067 Nitrite Ql (U) Negative Normal NORMAL: NEGATIVE [facility] Comment on above: Performed By: #### 2 96658 #### [facility],[address] [place] [address] pH (U) 8 [pH] Normal NORMAL: 5.0-8.0 [facility] Comment on above: Performed By: #### 2 67966 #### [facility],[address] [place] [address] Protein Ql (U) 30 Abnormal NORMAL: NEGATIVE [facility] Comment on above: Performed By: #### 2 13764 #### [facility],[address] [place] [address] Rbc NONE Normal 0-3/hpf [facility] Comment on above: Performed By: #### 2 25353 #### [facility],[address] [place] [address] Sp [place] 1.010 Normal NORMAL: 1.010-1.030 [facility] Comment on above: Performed By: #### 2 50172 #### [facility],[address] [place] [address] Specimen Type UNSPECIFIED Normal [facility] Comment on above: Performed By: #### 2 70376 #### [facility],[address] [place] [address] Urinalysis dipstick W Reflex Microscopic panel (U) SEE BELOW Normal [facility] Comment on above: Result Comment: MICR OSCOPIC Performed By: #### 2 80677 #### [facility],[address] [place] [address] Urobilinog NORM Normal NORMAL: NORMAL [facility] Comment on above: Performed By: #### 2 03209 #### [facility],[address] [place] [address] Wbc 1-5 Normal 0-5/hpf [facility] Comment on above: Performed By: #### 2 10025 #### [facility],[address] [place] [address] Yeast NONE Normal [facility] Comment on above: Performed By: #### 2 79317 #### [facility],[address] [place] [address] 37173 .Auto Diffon 02-11-2023 Basophil, Absolute 0.1 10 3/mcL Normal 0.0-0.2 [facility] ([place]) Comment on above: Performed By: #### A DIFF, GFR, MDW, CMP, ANEU, CBC, LIP #### [address] [address] Basophils/100 WBC (Bld) 0.5 % Normal 0.0-2.5 [facility] ([place]) Comment on above: Performed By: #### A DIFF, GFR, MDW, CMP, ANEU, CBC, LIP #### [address] [address] Eosinophil, Absolute 0.0 10 3/mcL Normal 0.0-0.4 [facility] ([place]) Comment on above: Performed By: #### A DIFF, GFR, MDW, CMP, ANEU, CBC, LIP #### [address] [address] Eosinophils/100 WBC (Bld) 0.2 % Normal 0.0-7.0 [facility] ([place]) Comment on above: Performed By: #### A DIFF, GFR, MDW, CMP, ANEU, CBC, LIP #### [address] [address] Lymphocyte, Absolute 4.2 10 3/mcL High 0.8-3.9 [facility] ([place]) Comment on above: Performed By: #### A DIFF, GFR, MDW, CMP, ANEU, CBC, LIP #### [address] [address] Lymphocytes/100 WBC (Bld) 32.7 % Normal 10.0-50.0 [facility] ([place]) Comment on above: Performed By: #### A DIFF, GFR, MDW, CMP, ANEU, CBC, LIP #### [address] [address] Monocyte, Absolute 0.9 10 3/mcL Normal 0.2-1.0 [facility] ([place]) Comment on above: Performed By: #### A DIFF, GFR, MDW, CMP, ANEU, CBC, LIP #### [address] [address] Monocytes/100 WBC (Bld) 7.0 % Normal 1.7-13.0 [facility] ([place]) Comment on above: Performed By: #### A DIFF, GFR, MDW, CMP, ANEU, CBC, LIP #### [address] [address] Neutrophils/100 WBC (Bld) 59.6 % Normal 37.0-80.0 [facility] ([place]) Comment on above: Performed By: #### A DIFF, GFR, MDW, CMP, ANEU, CBC, LIP #### [address] [address] Basophil, Absolute 0.1 10 3/mcL Normal 0.0-0.2 [facility] ([place]) Comment on above: Performed By: #### C MP, GFR, CBC, LIP, ADIFF, ANEU, MDW #### [address] [address] Basophils/100 WBC (Bld) 0.6 % Normal 0.0-2.5 [facility] ([place]) Comment on above: Performed By: #### C MP, GFR, CBC, LIP, ADIFF, ANEU, MDW #### [address] [address] Eosinophil, Absolute 0.0 10 3/mcL Normal 0.0-0.4 [facility] ([place]) Comment on above: Performed By: #### C MP, GFR, CBC, LIP, ADIFF, ANEU MDW #### [address] [address] Eosinophils/100 WBC (Bld) 0.1 % Normal 0.0-7.0 [facility] ([place]) Comment on above: Performed By: #### C MP, GFR, CBC, LIP, ADIFF, ANEU, MDW #### [address] [address] Lymphocyte, Absolute 4.2 10 3/mcL High 0.8-3.9 [facility] ([place]) Comment on above: Performed By: #### C MP, GFR, CBC, LIP, ADIFF, ALDAIR MERRILL #### [address] [address] Lymphocytes/100 WBC (Bld) 26.5 % Normal 10.0-50.0 [facility] ([place]) Comment on above: Performed By: #### C MP, GFR, CBC, LIP, ADIFF, ALDAIR MERRILL #### [address] [address] Monocyte, Absolute 1.0 10 3/mcL Normal 0.2-1.0 [facility] ([place]) Comment on above: Performed By: #### C MP, GFR, CBC, LIP, ADIFF, ALDAIR MERRILL #### [address] [address] Monocytes/100 WBC (Bld) 6.1 % Normal 1.7-13.0 [facility] ([place]) Comment on above: Performed By: #### C MP, GFR, CBC, LIP, ADIFFDESIRAE MDW #### [address] [address] Neutrophils/100 WBC (Bld) 66.7 % Normal 37.0-80.0 [facility] ([place]) Comment on above: Performed By: #### C MP, GFR, CBC, LIP, ADIFFDESIRAE MDW #### [address] [address] .GFRon 02-11-2023 GFR 63 ml/min/1.73sqm Normal [facility] ([place]) Comment on above: Result Comment: GFR Population [...] GFR, MDW, CMP, ANEU, CBC, LIP #### [address] [address] GFR Non- 52 ml/min/1.73sqm Normal [facility] ([place]) Comment on above: Result Comment: GFR Population [...] GFR, MDW, CMP, ANEU, CBC, LIP #### [address] [address] GFR Non- 42 ml/min/1.73sqm Normal [facility] ([place] Comment on above: Result Comment: GFR Population [...] GFR, MDW, CMP, ANEU, CBC, LIP #### [address] [address] GFR 51 ml/min/1.73sqm Normal [facility] ([place]) Comment on above: Result Comment: GFR Population [...] GFR, MDW, CMP, ANEU, CBC, LIP #### [address] [address] .MDWon 02-11-2023 Monocyte Distribution Width 19.69 Normal 0.00-20.00 [facility] ([place]) Comment on above: Result Comment: For ED adult patients suspected of sepsis, MDW<=20.0 does not rule out sepsis or risk of sepsis Performed By: #### A DIFF, GFR, MDW, CMP, ANEU, CBC, LIP #### [address] [address] .NEUABSon 02-11-2023 Neutrophil, Absolute 7.6 10 3/mcL High 2.9-6.2 [facility] ([place]) Comment on above: Performed By: #### A DIFF, GFR, MDW, CMP, ANEU, CBC, LIP #### [address] [address] Neutrophil, Absolute 10.5 10 3/mcL High 2.9-6.2 [facility] ([place]) Comment on above: Performed By: #### C MP, GFR, CBC, LIP, ADIFF, DESIRAE, MDW #### [place] [address] .Urinalysis Microscopic (AO) on 02-11-2023 UA Bacteria Trace Abnormal [facility] ([place] Comment on above: Performed By: #### A DIFF, GFR, MDW, CMP, ANEU, CBC, LIP #### [place] [address] UA RBC None Seen Normal None Seen [facility] ([place] Comment on above: Performed By: #### A DIFF, GFR, MDW, CMP, ANEU, CBC, LIP #### [place] [address] UA Squam Epithelial 0-5 Abnormal None Seen [facility] ([place] Comment on above: Performed By: #### A DIFF, GFR, MDW, CMP, ANEU, CBC, LIP #### [place] [address] UA WBC 0-5 Abnormal None Seen [facility] ([place] Comment on above: Performed By: #### A DIFF, GFR, MDW, CMP, ANEU, CBC, LIP #### [place] [address] A1Con 02-11-2023 HbA1c (Bld) [Mass fraction] 9.0 % High 4.3-6.4 [facility] ([place] Comment on above: Performed By: #### A DIFF, GFR, MDW, CMP, ANEU, CBC, LIP #### [place] [address] CBCon 02-11-2023 Erythrocyte distribution width (RBC) [Ratio] 14.8 % High 11.5-14.5 [facility] ([place] Comment on above: Performed By: #### A DIFF, GFR, MDW, CMP, ANEU, CBC, LIP #### [place] [address] Hematocrit (Bld) [Volume fraction] 34.6 % Low 37.0-47.0 [facility] ([place] Comment on above: Performed By: #### A DIFF, GFR, MDW, CMP, ANEU, CBC, LIP #### [address] [address] Hgb 11.5 G/dL Low 12.0-16.0 [facility] ([place] Comment on above: Performed By: #### A DIFF, GFR, MDW, CMP, ANEU, CBC, LIP #### [place] [address] MCH (RBC) [Entitic mass] 26.6 pg Low 27.0-31.2 [facility] ([place] Comment on above: Performed By: #### A DIFF, GFR, MDW, CMP, ANEU, CBC, LIP #### [place] [address] MCHC 33.3 G/dL Normal 33.0-37.0 [facility] ([place] Comment on above: Performed By: #### A DIFF, GFR, MDW, CMP, ANEU, CBC, LIP #### [place] [address] MCV (RBC) [Entitic vol] 80.0 fL Normal 80.0-94.0 [facility] ([place] Comment on above: Performed By: #### A DIFF, GFR, MDW, CMP, ANEU, CBC, LIP #### [address] [address] Platelet 332 10 3/mcL Normal 130-400 [facility] ([place] Comment on above: Performed By: #### A DIFF, GFR, MDW, CMP, ANEU, CBC, LIP #### [address] [address] Platelet mean volume (Bld) [Entitic vol] 7.5 fL Normal 7.4-10.4 [facility] ([place] Comment on above: Performed By: #### A DIFF, GFR, MDW, CMP, ANEU, CBC, LIP #### [address] [address] RBC 4.33 10 6/mcL Normal 4.20-5.40 [facility] ([place] Comment on above: Performed By: #### A DIFF, GFR, MDW, CMP, ANEU, CBC, LIP #### [address] [address] WBC 12.7 10 3/mcL High 4.6-10.8 [facility] ([place] Comment on above: Performed By: #### A DIFF, GFR, MDW, CMP, ANEU, CBC, LIP #### [address] [address] Erythrocyte distribution width (RBC) [Ratio] 14.9 % High 11.5-14.5 [facility] ([place] Comment on above: Performed By: #### C MP, GFR, CBC, LIP, ADIFF, ALDAIR MERRILL #### [place] [address] Hematocrit (Bld) [Volume fraction] 38.8 % Normal 37.0-47.0 [facility] ([place] Comment on above: Performed By: #### C MP, GFR, CBC, LIP, ADIFFDESIRAE MDW #### [place] [address] Hgb 12.7 G/dL Normal 12.0-16.0 [facility] ([place] Comment on above: Performed By: #### C MP, GFR, CBC, LIP, ADIFF, ALDAIR MERRILL #### [address] [address] MCH (RBC) [Entitic mass] 26.6 pg Low 27.0-31.2 [facility] ([place] Comment on above: Performed By: #### C MP, GFR, CBC, LIP, ADIFFDESIRAE MDW #### [place] [address] MCHC 32.8 G/dL Low 33.0-37.0 [facility] ([place] Comment on above: Performed By: #### C MP, GFR, CBC, LIP, ADIFF, ALDAIR MERRILL #### [address] [address] MCV (RBC) [Entitic vol] 81.2 fL Normal 80.0-94.0 [facility] ([place]) Comment on above: Performed By: #### C MP, GFR, CBC, LIP, ADDESIRAE ROMERO MDW #### [address] [address] Platelet 385 10 3/mcL Normal 130-400 [facility] ([place] Comment on above: Performed By: #### C MP, GFR, CBC, LIP, ADIFF, ALDAIR MERRILL #### [address] [address] Platelet mean volume (Bld) [Entitic vol] 7.6 fL Normal 7.4-10.4 [facility] ([place] Comment on above: Performed By: #### C MP, GFR, CBC, LIP, ADDESIRAE ROMERO MDW #### [place] [address] RBC 4.78 10 6/mcL Normal 4.20-5.40 [facility] ([place] Comment on above: Performed By: #### C MP, GFR, CBC, LIP, ADDESIRAE ROMERO MDW #### [address] [address] WBC 15.8 10 3/mcL High 4.6-10.8 [facility] ([place] Comment on above: Performed By: #### C MP, GFR, CBC, LIP, ADDESIRAE ROMERO MDW #### [address] [address] CMPon 02-11-2023 ALT [Catalytic activity/Vol] 15 U/L Normal 14-59 [facility] ([place] Comment on above: Performed By: #### A DIFF, GFRMDW, CMP, ANEU, CBC, LIP #### [address] [address] Albumin Level 3.0 G/dL Low 3.5-5.0 [facility] ([place] Comment on above: Performed By: #### A DIFF, GFR, MDW, CMP, ANEU, CBC, LIP #### [address] [address] Albumin/Globulin [Mass ratio] 0.8 {ratio} Low 1.1-2.5 [facility] ([place] Comment on above: Performed By: #### A DIFF, GFR, MDW, CMP, ANEU, CBC, LIP #### [address] [address] ALP [Catalytic activity/Vol] 78 U/L Normal 40-135 [facility] ([place] Comment on above: Performed By: #### A DIFF, GFR, MDW, CMP, ANEU, CBC, LIP #### [address] [address] AST [Catalytic activity/Vol] 17 U/L Normal 10-40 [facility] ([place]) Comment on above: Performed By: #### A DIFF, GFR, MDW, CMP, ANEU, CBC, LIP #### [address] [address] Bili Total 0.6 mg/dL Normal 0.2-1.0 [facility] ([place]) Comment on above: Result Comment: Use of this assay is not recommended for patients undergoing treatment with eltrombopag due to the potential for falsely elevated results. Performed By: #### A DIFF, GFR, MDW, CMP, ANEU, CBC, LIP #### [address] [address] BUN/Creatinine Ratio 6 ratio Low 7-27 [facility] ([place]) Comment on above: Performed By: #### A DIFF, GFR, MDW, CMP, ANEU, CBC, LIP #### [address] [address] Calcium [Mass/Vol] 8.5 mg/dL Normal 8.4-10.2 [facility] ([place]) Comment on above: Performed By: #### A DIFF, GFR, MDW, CMP, ANEU, CBC, LIP #### [address] [address] Chloride [Moles/Vol] 96 mmol/L Low 98-107 [facility] ([place]) Comment on above: Performed By: #### A DIFF, GFR, MDW, CMP, ANEU, CBC, LIP #### [address] [address] CO2 [Moles/Vol] 29 mmol/L Normal 22-29 [facility] ([place]) Comment on above: Performed By: #### A DIFF, GFR, MDW, CMP, ANEU, CBC, LIP #### [address] [address] Creatinine [Mass/Vol] 1.21 mg/dL High 0.55-1.02 [facility] ([place]) Comment on above: Performed By: #### A DIFF, GFR, MDW, CMP, ANEU, CBC, LIP #### [address] [address] Electrolyte Balance 11.0 mEq/L Normal 4.0-15.0 [facility] ([place]) Comment on above: Performed By: #### A DIFF, GFR, MDW, CMP, ANEU, CBC, LIP #### [address] [address] Globulin 3.7 G/dL Normal [facility] ([place]) Comment on above: Performed By: #### A DIFF, GFR, MDW, CMP, ANEU, CBC, LIP #### [address] [address] Glucose [Mass/Vol] 246 mg/dL High 70-105 [facility] ([place]) Comment on above: Performed By: #### A DIFF, GFR, MDW, CMP, ANEU, CBC, LIP #### [address] [address] Potassium [Moles/Vol] 3.5 mmol/L Normal 3.5-5.1 [facility] ([place] Comment on above: Performed By: #### A DIFF, GFR, MDW, CMP, ANEU, CBC, LIP #### [address] [address] Sodium [Moles/Vol] 136 mmol/L Normal 136-145 [facility] ([place] Comment on above: Performed By: #### A DIFF, GFR, MDW, CMP, ANEU, CBC, LIP #### [address] [address] Total Protein 6.7 G/dL Normal 6.4-8.2 [facility] ([place]) Comment on above: Performed By: #### A DIFF, GFR, MDW, CMP, ANEU, CBC, LIP #### [address] [address] Urea nitrogen [Mass/Vol] 7 mg/dL Normal 7-18 [facility] ([place] Comment on above: Performed By: #### A DIFF, GFR, MDW, CMP, ANEU, CBC, LIP #### [address] [address] Albumin Level 3.7 G/dL Normal 3.5-5.0 [facility] ([place] Comment on above: Performed By: #### A DIFF, GFR, MDW, CMP, ANEU, CBC, LIP #### [address] [address] Albumin/Globulin [Mass ratio] 0.8 {ratio} Low 1.1-2.5 [facility] ([place] Comment on above: Performed By: #### A DIFF, GFR, MDW, CMP, ANEU, CBC, LIP #### [address] [address] ALP [Catalytic activity/Vol] 88 U/L Normal 40-135 [facility] ([place]) Comment on above: Performed By: #### A DIFF, GFR, MDW, CMP, ANEU, CBC, LIP #### [address] [address] ALT [Catalytic activity/Vol] 16 U/L Normal 14-59 [facility] ([place] Comment on above: Performed By: #### A DIFF, GFR, MDW, CMP, ANEU, CBC, LIP #### [address] [address] AST [Catalytic activity/Vol] 10 U/L Normal 10-40 [facility] ([place] Comment on above: Performed By: #### A DIFF, GFR, MDW, CMP, ANEU, CBC, LIP #### [address] [address] Bili Total 0.9 mg/dL Normal 0.2-1.0 [facility] ([place] Comment on above: Result Comment: Use of this assay is not recommended for patients undergoing treatment with eltrombopag due to the potential for falsely elevated results. Performed By: #### A DIFF, GFR, MDW, CMP, ANEU, CBC, LIP #### [address] [address] BUN/Creatinine Ratio 6 ratio Low 7-27 [facility] ([place] Comment on above: Performed By: #### A DIFF, GFR, MDW, CMP, ANEU, CBC, LIP #### [address] [address] Calcium [Mass/Vol] 9.4 mg/dL Normal 8.4-10.2 [facility] ([place] Comment on above: Performed By: #### A DIFF, GFR, MDW, CMP, ANEU, CBC, LIP #### [address] [address] Chloride [Moles/Vol] 90 mmol/L Low 98-107 [facility] ([place] Comment on above: Performed By: #### A DIFF, GFR, MDW, CMP, ANEU, CBC, LIP #### [address] [address] CO2 [Moles/Vol] 30 mmol/L High 22-29 [facility] ([place] Comment on above: Performed By: #### A DIFF, GFR, MDW, CMP, ANEU, CBC, LIP #### [address] [address] Creatinine [Mass/Vol] 1.45 mg/dL High 0.55-1.02 [facility] ([place] Comment on above: Performed By: #### A DIFF, GFR, MDW, CMP, ANEU, CBC, LIP #### [address] [address] Electrolyte Balance 7.0 mEq/L Normal 4.0-15.0 [facility] ([place] Comment on above: Performed By: #### A DIFF, GFR, MDW, CMP, ANEU, CBC, LIP #### [address] [address] Globulin 4.4 G/dL Normal [facility] ([place] Comment on above: Performed By: #### A DIFF, GFR, MDW, CMP, ANEU, CBC, LIP #### [address] [address] Glucose [Mass/Vol] 307 mg/dL High 70-105 [facility] ([place] Comment on above: Performed By: #### A DIFF, GFR, MDW, CMP, ANEU, CBC, LIP #### [address] [address] Potassium [Moles/Vol] 3.5 mmol/L Normal 3.5-5.1 [facility] ([place] Comment on above: Performed By: #### A DIFF, GFR, MDW, CMP, ANEU, CBC, LIP #### [address] [address] Sodium [Moles/Vol] 127 mmol/L Low 136-145 [facility] ([place] Comment on above: Performed By: #### A DIFF, GFR, MDW, CMP, ANEU, CBC, LIP #### [address] [address] Total Protein 8.1 G/dL Normal 6.4-8.2 [facility] ([place] Comment on above: Performed By: #### A DIFF, GFR, MDW, CMP, ANEU, CBC, LIP #### [address] [address] Urea nitrogen [Mass/Vol] 8 mg/dL Normal 7-18 [facility] ([place] Comment on above: Performed By: #### A DIFF, GFR, MDW, CMP, ANEU, CBC, LIP #### [place] [address] [place], [place] [address] LABORATORYOrdered By: Harriet Cope ast on 02-11-2023 Blood Glucose Testing Reason Routine (02/11/23 4:15 PM) [facility] Work Phone: Glucose [Mass/Vol] 203 mg/dL Invalid Interpretation Code 70 - 110 mg/dL [facility] Work Phone: Blood Glucose Testing Reason Routine (02/11/23 7:15 AM) [facility] Work Phone: Glucose [Mass/Vol] 237 mg/dL Invalid Interpretation Code 70 - 110 mg/dL [facility] Work Phone: LABORATORYOrdered By: Manjinder Boogie on 02-11-2023 Blood Glucose Testing Reason Routine (02/11/23 12:04 PM) [facility] Work Phone: Glucose [Mass/Vol] 220 mg/dL Invalid Interpretation Code 70 - 110 mg/dL [facility] Work Phone: LABORATORYOrdered By: SYSTEM SYSTEM [...] Lactic Acid Lvl 1.7 mmol/L Normal 0.4-2.0 [facility] ([place] Comment on above: Performed By: #### A DIFF, GFR, MDW, CMP, ANEU, CBC, LIP #### [address] [address] LIPon 02-11-2023 Lipase Level 39 U/L Normal 16-77 [facility] ([place]) Comment on above: Performed By: #### A DIFF, GFR, MDW, CMP, ANEU, CBC, LIP #### [facility] [address] [place], [place] [address] MGon 02-11-2023 Magnesium [Mass/Vol] 2.1 mg/dL Normal 1.8-2.4 [facility] ([place]) Comment on above: Performed By: #### A DIFF, GFR, MDW, CMP, ANEU, CBC, LIP #### [facility] [address] [place], [place] [address] NM GASTRIC EMPTYING STUDYon 02-11-2023 NM GASTRIC [...] 02/11/2023 3:41:00 PM Ordering Provider: MARTI Maldonado [facility] ([place]) No Panel Informationon 02-11 Microscopic examination of blood, culture Culture has been received in lab and is no growth to date. Routine cultures are held for 5 days. [facility] Work Phone: PREGUon 02-11-2023 HCG ( test) Ql (U) Negative [facility] ([place]) Comment on above: Performed By: #### A DIFF, GFR, MDW, CMP, ANEU, CBC, LIP #### [address] [address] test (u) int Not detected Invalid Interpretation Code [facility] ([place]) Comment on above: Performed By: #### A DIFF, GFR, MDW, CMP, ANEU, CBC, LIP #### [address] [address] TOXSCon 02-11-2023 U Ampheta (AO) Negative [facility] ([place] Comment on above: Performed By: #### A DIFF, GFR, MDW, CMP, ANEU, CBC, LIP #### [address] [address] U Marifer (AO) Negative [facility] ([place] Comment on above: Performed By: #### A DIFF, GFR, MDW, CMP, ANEU, CBC, LIP #### [address] [address] U Ayan (AO) Negative [facility] ([place] Comment on above: Performed By: #### A DIFF, GFR, MDW, CMP, ANEU, CBC, LIP #### [address] [address] U Cannab (AO) Positive Normal [facility] ([place] Comment on above: Performed By: #### A DIFF, GFR, MDW, CMP, ANEU, CBC, LIP #### [address] [address] U Cocaine (AO) Negative [facility] ([place] Comment on above: Performed By: #### A DIFF, GFR, MDW, CMP, ANEU, CBC, LIP #### [address] [address] U Methadone (AO) Negative [facility] ([place] Comment on above: Performed By: #### A DIFF, GFR, MDW, CMP, ANEU, CBC, LIP #### [address] [address] U PCP (AO) Negative Normal [facility] ([place] Comment on above: Performed By: #### A DIFF, GFR, MDW, CMP, ANEU, CBC, LIP #### [address] [address] U TCA (AO) Negative Normal [facility] ([place] Comment on above: Performed By: #### A DIFF, GFR, MDW, CMP, ANEU, CBC, LIP #### [address] [address] Urine Opiates (AO) Positive Normal [facility] ([place] Comment on above: Performed By: #### A DIFF, GFR, MDW, CMP, ANEU, CBC, LIP #### [address] [address] UAon 02-11-2023 Color (U) Yellow Normal [facility] ([place] Comment on above: Performed By: #### A DIFF, GFR, MDW, CMP, ANEU, CBC, LIP #### [address] [address] Glucose (U) [Mass/Vol] 100 mg/dL Abnormal Negative [facility] ([place]) Comment on above: Performed By: #### A DIFF, GFR, MDW, CMP, ANEU, CBC, LIP #### [address] [address] Ketones Ql (U) Negative Normal Negative [facility] ([place] Comment on above: Performed By: #### A DIFF, GFR, MDW, CMP, ANEU, CBC, LIP #### [address] [address] UA Appear Clear Normal Clear [facility] ([place] Comment on above: Performed By: #### A DIFF, GFR, MDW, CMP, ANEU, CBC, LIP #### [address] [address] UA Blood Trace Abnormal Negative [facility] ([place] Comment on above: Performed By: #### A DIFF, GFR, MDW, CMP, ANEU, CBC, LIP #### [address] [address] UA Leuk Est Negative Normal Negative [facility] ([place] Comment on above: Performed By: #### A DIFF, GFR, MDW, CMP, ANEU, CBC, LIP #### [place] [address] UA Nitrite Negative Normal Negative [facility] ([place] Comment on above: Performed By: #### A DIFF, GFR, MDW, CMP, ANEU, CBC, LIP #### [place] [address] UA pH 7.0 Normal 5.0 - 8.0 [facility] ([place] Comment on above: Performed By: #### A DIFF, GFR, MDW, CMP, ANEU, CBC, LIP #### [place] [address] UA Protein Negative Normal Negative [facility] ([place] Comment on above: Performed By: #### A DIFF, GFR, MDW, CMP, ANEU, CBC, LIP #### [place] [address] UA Spec Grav 1.015 Normal 1.015-1.025 [facility] ([place] Comment on above: Performed By: #### A DIFF, GFR, MDW, CMP, ANEU, CBC, LIP #### [place] [address] UA Specimen Type Void Normal [facility] ([place] Comment on above: Performed By: #### A DIFF, GFR, MDW, CMP, ANEU, CBC, LIP #### [place] [address] UA Urobilinogen 0.2 E.U./dL Normal 0.2-1.0 [facility] ([place]) Comment on above: Performed By: #### A DIFF, GFR, MDW, CMP, ANEU, CBC, LIP #### [facility] [place] [address] [place], [place] [address] Urobilinogen (U) [Mass/Vol] Negative Normal Negative [facility] ([place] Comment on above: Performed By: #### A DIFF, GFR, MDW, CMP, ANEU, CBC, LIP #### [address] [address] Color (U) Yellow Normal [facility] ([place] Comment on above: Performed By: #### A DIFF, GFR, MDW, CMP, ANEU, CBC, LIP #### [address] [address] Glucose (U) [Mass/Vol] 100 mg/dL Abnormal Negative [facility] ([place] Comment on above: Performed By: #### A DIFF, GFR, MDW, CMP, ANEU, CBC, LIP #### [address] [address] Ketones Ql (U) 15 mg/dL Abnormal Negative [facility] ([place] Comment on above: Performed By: #### A DIFF, GFR, MDW, CMP, ANEU, CBC, LIP #### [address] [address] UA Appear Clear Normal Clear [facility] ([place] Comment on above: Performed By: #### A DIFF, GFR, MDW, CMP, ANEU, CBC, LIP #### [address] [address] UA Blood Trace Abnormal Negative [facility] ([place] Comment on above: Performed By: #### A DIFF, GFR, MDW, CMP, ANEU, CBC, LIP #### [address] [address] UA Leuk Est Trace Abnormal Negative [facility] ([place] Comment on above: Performed By: #### A DIFF, GFR, MDW, CMP, ANEU, CBC, LIP #### [address] [address] UA Nitrite Negative Normal Negative [facility] ([place] Comment on above: Performed By: #### A DIFF, GFR, MDW, CMP, ANEU, CBC, LIP #### [address] [address] UA pH 5.5 Normal 5.0 - 8.0 [facility] ([place] Comment on above: Performed By: #### A DIFF, GFR, MDW, CMP, ANEU, CBC, LIP #### [address] [address] UA Protein Negative Normal Negative [facility] ([place] Comment on above: Performed By: #### A DIFF, GFR, MDW, CMP, ANEU, CBC, LIP #### [address] [address] UA Spec Grav <=1.005 Abnormal 1.015-1.025 [facility] ([place] Comment on above: Performed By: #### A DIFF, GFR, MDW, CMP, ANEU, CBC, LIP #### [address] [address] UA Specimen Type Clean Catch Normal [facility] ([place] Comment on above: Performed By: #### A DIFF, GFR, MDW, CMP, ANEU, CBC, LIP #### [address] [address] UA Urobilinogen 0.2 E.U./dL Normal 0.2-1.0 [facility] ([place] Comment on above: Performed By: #### A DIFF, GFR, MDW, CMP, ANEU, CBC, LIP #### [address] [address] Urobilinogen (U) [Mass/Vol] Negative Normal Negative [facility] ([place] Comment on above: Performed By: #### A DIFF, GFR, MDW, CMP, ANEU, CBC, LIP #### [address] [address] [place] ABDOMEN COMPLETEon 2022 US ABDOMEN COMPLETE [...] 02/11/2023 1:29:01 PM Ordering Provider: MARTI WEBB [facility] ([place]) [place] PELVIS NON-OB W/TRANSVAGI NALon 02-11-2023 US [...] 02/11/2023 12:11:13 PM Ordering Provider: MARTI WEBB [facility] XR ABDOMEN APon 02-11-2023 XR ABDOMEN AP [...] 02/11/2023 9:28:54 AM Ordering Provider: MARTI WEBB [facility] LABORATORYOrdered By: SYSTEM SYSTEM on 02-10-2023 Albumin [...] Auto (Unsp spec) [#/Vol] 1.67 10*3/uL 0.83-4.51 [facility] Amorphous sediment detection in urine sediment by light microscopyOrdered By: Javy Doss on 02-08-2023 Amorphous sediment LM Ql (Urine sed) 3+ PHOS [facility] Basophil percentageOrdered B y: Javy Doss on 02-08-2023 Basophil percentage 0-5 SEEN /hpf 0-5 [facility] Basophil percentage 325 mg/dL 74-106 [facility] Basophil percentage 9.2 g/dL 6.4-8.2 [facility] Basophil percentage 0.70 mg/dL 0.20-1.00 [facility] Basophil percentage 134 mmol/L 136-145 [facility] Basophil percentage 3.7 mmol/L 3.5-5.1 [facility] Basophil percentage 96 mmol/L 98-107 [facility] Basophils (Bld) [#/Vol] 9.1 10*3/uL 4.4-11.0 [facility] Basophils (Bld) [#/Vol] 7.0 10*3/uL 2.0-7.7 [facility] Basophils/100 WBC (Bld) 0.2 % 0-1 [facility] Basophils/100 WBC (Bld) 77.0 % 47-70 [facility] Basophils/100 WBC (Bld) 0.0 % 0-5 [facility] Bilirubin [Mass/Vol] 0.70 mg/dL 0.20-1.00 [facility] Comment on above: For patients on eltr ombopag therapy, use of Dimension [place] TBIL is not recommended. Chloride [Moles/Vol] 96 mmol/L 98-107 [facility] Eosinophils/100 WBC (Bld) 0.0 % 0-5 [facility] Glucose [Mass/Vol] 325 mg/dL 74-106 [facility] Comment on above: Glucose result great er than or equal to 200 mg/dLsuggests DIABETES MELLITUS per A.D.A. criteria. Neutrophils (Bld) [#/Vol] 7.0 10*3/uL 2.0-7.7 [facility] Neutrophils/100 WBC (Bld) 77.0 % 47-70 [facility] Potassium [Moles/Vol] 3.7 mmol/L 3.5-5.1 [facility] Protein [Mass/Vol] 9.2 g/dL 6.4-8.2 [facility] Sodium [Moles/Vol] 134 mmol/L 136-145 [facility] WBC (Bld) [#/Vol] 9.1 10*3/uL 4.4-11.0 [facility] Beta hCG serum qualOrdered B y: Javy Doss on 02-08-2023 Beta HCG ( test) Ql Negative [facility] Bilirubin Test strip Ql (U)O rdered By: Javy Doss on 02-08-2023 Bilirubin Ql (U) Negative Negative [facility] Blood erythrocytes count (nu mber/volume)Ordered By: Javy Doss on 02-08-2023 RBC (Bld) [#/Vol] 5.27 10*6/uL 4.2-5.4 [facility] Blood hemoglobin measurement (mass/volume)Ordered By: Javy Doss on 02-08-2023 Hemoglobin (Bld) [Mass/Vol] 13.9 g/dL 12.0-15.0 [facility] Blood lymphocytes/100 leukoc ytesOrdered By: Javy Doss on 02-08-2023 Lymphocytes/100 WBC (Bld) 18.4 % 19-41 [facility] Blood monocytes/100 leukocyt esOrdered By: Javy Doss on 02-08-2023 Monocytes/100 WBC (Bld) 3.6 % 0-10 [facility] Blood platelet mean volumeOr dered By: Javy Doss on 02-08-2023 Platelet mean volume (Bld) [Entitic vol] 9.3 fL 6.2-12.0 [facility] Determination of erythrocyte mean corpuscular volume (MCV)Ordered By: Javy Doss on 02-08-2023 MCV (RBC) [Entitic vol] 81.2 fL 81-99 [facility] Hematocrit Auto (Bld) [Volum e fraction]Ordered By: Javy Doss on 02-08-2023 Hematocrit (Bld) [Volume fraction] 42.8 % 37-47 [facility] Ketones Test strip Ql (U)Ord ered By: Javy Doss on 02-08-2023 Ketones Ql (U) 50 mg/dl Negative [facility] Laboratory - Chemistry and C hemistry - challengeOrdered By: Javy Doss on 02-08-2023 ALP [Catalytic activity/Vol] 105 U/L 45-117 [facility] ALT [Catalytic activity/Vol] 24 U/L 13-56 [facility] CO2 [Moles/Vol] 30.0 mmol/L 21.0-32.0 [facility] Globulin (S) [Mass/Vol] 5.4 g/dL 2.2-4.2 [facility] Lipase [Catalytic activity/Vol] 38 U/L 13-75 [facility] Comment on above: Please note:LIPASE r evised reference range effective 22. New Lipase methodology. Expected to produce lower values than the previous assay method. NEW Reference Range: 13 - 75 U/L Urea nitrogen/Creatinine [Mass ratio] 7.4 mg/mg 10-20 [facility] Laboratory - Hematology and Cell countsOrdered By: Javy Doss on 02-08-2023 Erythrocyte distribution width (RBC) [Entitic vol] 39.1 fL 35.1-43.9 [facility] Erythrocyte distribution width (RBC) [Ratio] 13.3 % 11.6-14.6 [facility] Immature granulocytes/100 WBC (Bld) 0.800 % 0.0-0.9 [facility] Comment on above: IG% - Immature Granu locytes (promyelocytes, myelocytes and metamyelocytes) > 1% indicates that a LEFT SHIFT is Present. MCH (RBC) [Entitic mass] 26.4 pg 27.0-32.0 [facility] Nucleated RBC/100 WBC (Bld) [Ratio] 0 % 0-5 [facility] MCHC Auto (RBC) [Mass/Vol]Or dered By: Javy Doss on 02-08-2023 MCHC (RBC) [Mass/Vol] 32.5 g/dL 32-36 [facility] Mucus LM Ql (Urine sed)Order ed By: Javy Doss on 02-08-2023 Mucus Ql (Urine sed) 0 SEEN /hpf [facility] Nitrite Test strip Ql (U)Ord ered By: Javy Doss on 02-08-2023 Nitrite Ql (U) Negative Negative [facility] No Panel InformationOrdered By: Javy Doss on 02-08-2023 Estimated Creatinine Clearance Calc 62.55 ml/min [facility] Estimated GFR (MDRD) Amer 66 mL/min >60 [facility] Comment on above: GFR Calc Estimated GFR (MDRD) Non-Af Amer 55 mL/min >60 [facility] Comment on above: Non- GFR Calc 26.4 pg 27.0-32.0 [facility] 13.3 % 11.6-14.6 [facility] 39.1 fl 35.1-43.9 [facility] 0.800 % 0.0-0.9 [facility] 0 % 0-5 [facility] 55 mL/min >60 [facility] 66 mL/min >60 [facility] 62.55 ml/min [facility] 7.4 RATIO 10-20 [facility] 5.4 g/dL 2.2-4.2 [facility] 38 U/L 13-75 [facility] 105 U/L 45-117 [facility] 24 U/L 13-56 [facility] 30.0 mmol/L 21.0-32.0 [facility] Platelets bldOrdered By: Haylee benitez Romario on 02-08-2023 Platelets (Bld) [#/Vol] 394 10*3/uL 150-450 [facility] Protein Test strip Ql (U)Ord ered By: Javy Romario on 02-08-2023 Protein Ql (U) 30 mg/dl Negative [facility] Serum or plasma albumin hussein urement (mass/volume)Ordered By: Javy Zamudiomeño on 02-08-2023 Albumin [Mass/Vol] 3.8 g/dL 3.2-5.0 [facility] Serum or plasma albumin/glob ulin mass ratioOrdered By: Javy Romario on 02-08-2023 Albumin/Globulin [Mass ratio] 0.7 {ratio} 0.9-2.4 [facility] Serum or plasma calcium hussein urement (mass/volume)Ordered By: [facility] Lizz[facility] on 02-08-2023 Calcium [Mass/Vol] 9.7 mg/dL 8.5-10.1 [facility] Serum or plasma creatinine m easurement (mass/volume)Ordered By: Remus Zamudiomeño on 02-08-2023 Creatinine [Mass/Vol] 1.22 mg/dL 0.55-1.02 [facility] Comment on above: The validity of the calculated GFR & GFRAA in patients over 70 years has not been determined. Clinical correlation is essential. Serum or plasma urea nitroge n measurement (mass/volume)Ordered By: Javy Doss on 02-08-2023 Urea nitrogen [Mass/Vol] 9 mg/dL 7-18 [facility] Squamous epithelial cells de tection in urine sediment by light microscopyOrdered By: Javy Doss on 02-08-2023 Epithelial cells.squamous LM Ql (Urine sed) 0-5 SEEN /hpf 5-10 [facility] Thin prep Papanicolaou smear with manual screeningOrdered By: Javy Doss on 02-08-2023 Thin prep Papanicolaou smear with manual screening 15 U/L 15-37 [facility] Thin prep Papanicolaou smear with manual screening 8 5-15 [facility] Urine blood detectionOrdered By: Javy Doss on 02-08-2023 RBC Ql (U) Negative Negative [facility] RBC Ql (U) 0 SEEN /hpf 0-5 [facility] Urine clarityOrdered By: Hyalee Doss on 02-08-2023 Clarity (U) Sl. Cloudy Clear [facility] Urine color determinationOrd ered By: Javy Doss on 02-08-2023 Color (U) Yellow Yellow [facility] Urine glucose detectionOrder ed By: Javy Doss on 02-08-2023 Glucose Ql (U) 1000 mg/dl Normal [facility] Urine leukocyte esterase det ection by dipstickOrdered By: Javy Doss on 02-08-2023 Leukocyte esterase Test strip Ql (U) 25 /ul Negative [facility] Urine pHOrdered By: Javy Tee gur on 02-08-2023 pH (U) 8.0 [pH] 5.0 - 8.0 [facility] Urine sediment bacteria coun t by microscopy (number/high power field)Ordered By: Javy Doss on 02-08-2023 Bacteria LM.HPF (Urine sed) [#/Area] 0 /[HPF] None Seen [facility] Urine specific gravity measu rementOrdered By: Javy Doss on 02-08-2023 Specific gravity (U) [Rel density] 1.010 1.002-1.030 [facility] Urobilinogen Auto test strip Ql (U)Ordered By: Javy Doss on 02-08-2023 Urobilinogen Ql (U) Normal mg/dl Normal [facility] Absolute lymphocyte countOrd ered By: Fabricio Guevara on 02-04-2023 Lymphocytes Auto (Unsp spec) [#/Vol] 3.25 10*3/uL 0.83-4.51 [facility] Basophil percentageOrdered B y: Fabricio Guevara on 02-04-2023 Basophil percentage 259 mg/dL 74-106 [facility] Basophil percentage 8.1 g/dL 6.4-8.2 [facility] Basophil percentage 0.40 mg/dL 0.20-1.00 [facility] Basophil percentage 138 mmol/L 136-145 [facility] Basophil percentage 3.5 mmol/L 3.5-5.1 [facility] Basophil percentage 103 mmol/L 98-107 [facility] Basophils (Bld) [#/Vol] 8.8 10*3/uL 4.4-11.0 [facility] Basophils (Bld) [#/Vol] 4.9 10*3/uL 2.0-7.7 [facility] Basophils/100 WBC (Bld) 0.3 % 0-1 [facility] Basophils/100 WBC (Bld) 55.7 % 47-70 [facility] Basophils/100 WBC (Bld) 0.5 % 0-5 [facility] Bilirubin [Mass/Vol] 0.40 mg/dL 0.20-1.00 [facility] Comment on above: For patients on eltr ombopag therapy, use of Dimension [place] TBIL is not recommended. Chloride [Moles/Vol] 103 mmol/L 98-107 [facility] Eosinophils/100 WBC (Bld) 0.5 % 0-5 [facility] Glucose [Mass/Vol] 259 mg/dL 74-106 [facility] Comment on above: Glucose result great er than or equal to 200 mg/dLsuggests DIABETES MELLITUS per A.D.A. criteria. Neutrophils (Bld) [#/Vol] 4.9 10*3/uL 2.0-7.7 [facility] Neutrophils/100 WBC (Bld) 55.7 % 47-70 [facility] Potassium [Moles/Vol] 3.5 mmol/L 3.5-5.1 [facility] Protein [Mass/Vol] 8.1 g/dL 6.4-8.2 [facility] Sodium [Moles/Vol] 138 mmol/L 136-145 [facility] WBC (Bld) [#/Vol] 8.8 10*3/uL 4.4-11.0 [facility] Blood erythrocytes count (nu mber/volume)Ordered By: Fabricio Guevara on 02-04-2023 RBC (Bld) [#/Vol] 4.65 10*6/uL 4.2-5.4 [facility] Blood hemoglobin measurement (mass/volume)Ordered By: Fabricio Guevara on 02-04-2023 Hemoglobin (Bld) [Mass/Vol] 12.5 g/dL 12.0-15.0 [facility] Blood lymphocytes/100 leukoc ytesOrdered By: Fabricio Guevara on 02-04-2023 Lymphocytes/100 WBC (Bld) 37.0 % 19-41 [facility] Blood monocytes/100 leukocyt esOrdered By: Fabricio Guevara on 02-04-2023 Monocytes/100 WBC (Bld) 5.8 % 0-10 [facility] Blood platelet mean volumeOr dered By: Fabricio Guevara on 02-04-2023 Platelet mean volume (Bld) [Entitic vol] 9.4 fL 6.2-12.0 [facility] Determination of erythrocyte mean corpuscular volume (MCV)Ordered By: Fabricio Guevara on 02-04-2023 MCV (RBC) [Entitic vol] 80.0 fL 81-99 [facility] Hematocrit Auto (Bld) [Volum e fraction]Ordered By: Fabricio Guevara on 02-04-2023 Hematocrit (Bld) [Volume fraction] 37.2 % 37-47 [facility] Laboratory - Chemistry and C hemistry - challengeOrdered By: Fabricio Guevara on 02-04-2023 ALP [Catalytic activity/Vol] 94 U/L 45-117 [facility] ALT [Catalytic activity/Vol] 29 U/L 13-56 [facility] CO2 [Moles/Vol] 25.0 mmol/L 21.0-32.0 [facility] Globulin (S) [Mass/Vol] 4.7 g/dL 2.2-4.2 [facility] Lipase [Catalytic activity/Vol] 51 U/L [facility] Comment on above: Please note:LIPASE r evised reference range effective 22. New Lipase methodology. Expected to produce lower values than the previous assay method. NEW Reference Range: 13 - 75 U/L Urea nitrogen/Creatinine [Mass ratio] 7.0 mg/mg - [facility] Laboratory - Hematology and Cell countsOrdered By: Fabricio Guevara on 02-04-2023 Erythrocyte distribution width (RBC) [Entitic vol] 39.2 fL 35.1-43.9 [facility] Erythrocyte distribution width (RBC) [Ratio] 13.6 % 11.6-14.6 [facility] Immature granulocytes/100 WBC (Bld) 0.700 % 0.0-0.9 [facility] Comment on above: IG% - Immature Granu locytes (promyelocytes, myelocytes and metamyelocytes) > 1% indicates that a LEFT SHIFT is Present. MCH (RBC) [Entitic mass] 26.9 pg 27.0-32.0 [facility] Nucleated RBC/100 WBC (Bld) [Ratio] 0 % 0-5 [facility] MCHC Auto (RBC) [Mass/Vol]Or dered By: Fabricio Guevara on 02-04-2023 MCHC (RBC) [Mass/Vol] 33.6 g/dL 32-36 [facility] No Panel InformationOrdered By: Fabricio Guevara on 02-04-2023 Estimated GFR (MDRD) Amer 84 mL/min >60 [facility] Estimated GFR (MDRD) Non-Af Amer 69 mL/min >60 [facility] 26.9 pg 27.0-32.0 [facility] 13.6 % 11.6-14.6 [facility] 39.2 fl 35.1-43.9 [facility] 0.700 % 0.0-0.9 [facility] 0 % 0-5 [facility] 69 mL/min >60 [facility] 84 mL/min >60 [facility] 7.0 RATIO 04-30 [facility] 4.7 g/dL 2.2-4.2 [facility] 51 U/L [facility] 94 U/L 45-117 [facility] 29 U/L 13-56 [facility] 25.0 mmol/L 21.0-32.0 [facility] Platelets bldOrdered By: Chidi Guevara on 02-04-2023 Platelets (Bld) [#/Vol] 358 10*3/uL 150-450 [facility] Serum or plasma albumin hussein urement (mass/volume)Ordered By: Fabricio Guevara on 02-04-2023 Albumin [Mass/Vol] 3.4 g/dL 3.2-5.0 [facility] Serum or plasma albumin/glob ulin mass ratioOrdered By: Fabricio Guevara on 02-04-2023 Albumin/Globulin [Mass ratio] 0.7 {ratio} 0.9-2.4 [facility] Serum or plasma calcium hussein urement (mass/volume)Ordered By: Fabricio Guevara on 02-04-2023 Calcium [Mass/Vol] 9.2 mg/dL 8.5-10.1 [facility] Serum or plasma creatinine m easurement (mass/volume)Ordered By: Fabricio Guevara on 02-04-2023 Creatinine [Mass/Vol] 1.00 mg/dL 0.55-1.02 [facility] Comment on above: The validity of the calculated GFR & GFRAA in patients over 70 years has not been determined. Clinical correlation is essential. Serum or plasma urea nitroge n measurement (mass/volume)Ordered By: Fabricio Guevara on 02-04-2023 Urea nitrogen [Mass/Vol] 7 mg/dL 7-18 [facility] Thin prep Papanicolaou smear with manual screeningOrdered By: Fabricio Guevara on 02-04-2023 Thin prep Papanicolaou smear with manual screening 18 U/L 15-37 [facility] Thin prep Papanicolaou smear with manual screening 10 5-15 [facility] CBC W Auto Differential pane l (Bld)Ordered By: Yashira Cleaning on 01-24-2023 Basophils (Bld) [#/Vol] 0.0 10*3/uL 0.0 - 0.2 10*3/uL [employer] Basophils/100 WBC (Bld) 0.3 % 0.0 - 2.0 % [facility] [employer] Eosinophils (Bld) [#/Vol] 0.0 10*3/uL 0.0 - 0.5 10*3/uL [facility] Eosinophils/100 WBC (Bld) 0.3 % Low 1.0 - 6.0 % [facility] Erythrocyte distribution width (RBC) [Ratio] 13.9 % 11.5 - 14.5 % [facility] Hematocrit (Bld) [Volume fraction] 37.2 % 35.0 - 47.0 % [facility] Hemoglobin (Bld) [Mass/Vol] 12.4 g/dL 11.7 - 16.0 g/dL [facility] Immature granulocytes (Bld) [#/Vol] 0.1 10*3/uL High NINF - 0.0 10*3/uL [facility] Immature granulocytes/100 WBC (Bld) 0.6 % High NINF - 0.0 % [facility] Interpretation and review of laboratory results Abnormal [facility] Lymphocytes (Bld) [#/Vol] 2.6 10*3/uL 1.0 - 4.3 10*3/uL [facility] Lymphocytes/100 WBC (Bld) 33.6 % 20.0 - 40.0 % [facility] MCH (RBC) [Entitic mass] 26.3 pg 26.0 - 34.0 pg [facility] MCHC (RBC) [Mass/Vol] 33.3 % 32.0 - 36.0 % [facility] MCV (RBC) [Entitic vol] 79.0 fL Low 80.0 - 98.0 fL [facility] Monocytes (Bld) [#/Vol] 0.5 10*3/uL 0.0 - 0.8 10*3/uL [facility] Monocytes/100 WBC (Bld) 5.9 % 2.0 - 10.0 % [facility] Neutrophils (Bld) [#/Vol] 4.6 10*3/uL 1.8 - 7.0 10*3/uL [facility] Neutrophils/100 WBC (Bld) 59.3 % 40.0 - 80.0 % [facility] Platelet mean volume (Bld) [Entitic vol] 9.1 fL 7.4 - 12.4 fL [facility] Comment on above: MPV is a calculated measurement using platelet volume ratio Platelets (Bld) [#/Vol] 342 10*3/uL 140 - 440 10*3/uL [facility] RBC (Bld) [#/Vol] 4.71 10*6/uL 3.8 - 5.20 10*6/uL [facility] WBC (Bld) [#/Vol] 7.8 10*3/uL 3.6 - 10.7 10*3/uL [facility] Comprehensive metabolic 1998 panelon 01-24-2023 Albumin [Mass/Vol] 4.2 g/dL 3.5 - 5.0 g/dL [facility] ALP [Catalytic activity/Vol] 74 U/L 38 - 126 U/L [facility] ALT [Catalytic activity/Vol] 20 U/L 0 - 34 U/L [facility] Anion gap [Moles/Vol] 10 mmol/L 3 - 13 mmol/L [facility] AST [Catalytic activity/Vol] 28 U/L 15 - 46 U/L [facility] Bilirubin [Mass/Vol] 0.7 mg/dL 0.2 - 1 .3 mg/dL [facility] Calcium [Mass/Vol] 9.4 mg/dL 8.4 - 10. 4 mg/dL [facility] Chloride [Moles/Vol] 100 mmol/L 98 - 10 7 mmol/L [facility] CO2 [Moles/Vol] 25 mmol/L 22 - 30 mmol/L [facility] Creatinine [Mass/Vol] 0.78 mg/dL 0.52 - 1.04 mg/dL [facility] GFR/1.73 sq M.predicted MDRD (S/P/Bld) [Vol rate/Area] - PINF [facility] Comment on above: Calculation based on the Chronic Kidney Disease Epidemiology Collaboration (CKD-EPI) equation refit without adjustment for race Glucose [Mass/Vol] 220 mg/dL High 70 - 100 mg/dL [facility] Interpretation and review of laboratory results Abnormal [facility] Potassium [Moles/Vol] 3.6 mmol/L 3.5 - 5.1 mmol/L [facility] Protein [Mass/Vol] 8.1 g/dL 6.3 - 8.2 g/dL [facility] Sodium [Moles/Vol] 135 mmol/L 135 - 145 mmol/L [facility] Urea nitrogen [Mass/Vol] 9 mg/dL 7 - 17 mg/dL [facility] ECG 12-LEADon 01-24-2023 ECG 12-LEAD IMPRESSION: SINUS RHYTHM VENTRICULAR PREMATURE COMPLEX CONSIDER LEFT VENTRICULAR HYPERTROPHY No previous ECG available for comparison Electronically Signed On 01-24-2023 11:21:48 EDT by Abdirizak Ramirez [facility] ED Nursing Noteon 01-24-2023 ED Nursing Note Patient to room 15 w ith c/o vomiting for 3 weeks. Patient reports being at [facility] and being told it was [facility], and there was nothing more they could do for her. Patient reports having Zofran at home that she doesn't take, because it has not relieved her symptoms. V/S obtained, call light within reach. Normal [facility] ED Provider Noteon ED Provider Note [facility] ED EMERGENCY DEPARTMENT ENCOUNTER Pt Name: [...] - Normal (more content not included)... Normal [facility] Laboratory - Chemistry and C hemistry - challengeon 01-24-2023 Troponin I.cardiac [Mass/Vol] ng/mL 0.000 - 0.034 ng/mL [facility] Lipase [Catalytic activity/Vol] 130 U/L 23 - 300 U/L [facility] Magnesium [Mass/Vol] 1.8 mg/dL 1.6 - 2 .3 mg/dL [facility] Beta HCG ( test) Ql Negative Negative [facility] Comment on above: Please note: Very di lute urine specimens, as indicated by a low specific gravity, may not contain traveling representative levels of hCG. If is still suspected, a first morning urine specimen should be collected 48 hours later and tested. Beta HCG ( test) Ql (U) is the most common reason for HCG in urine, although choriocarcinoma, hydatidiform mole, and certain nontrophoblastic malignancies also result in detectable urinary HCG levels. Sensitivity = 20mIU/mL. [facility] [employer] No Panel Informationon 01-24 P Sidman -3 degrees [facility] SD Interval 128 ms [facility] QRS [place]man -11 degrees [facility] QRSD Interval 86 ms [facility] h QT Interval 396 ms [facility] QTC Interval 425 ms [facility] T Wave [place]man 8 degrees [facility] SINUS RHYTHM VENTRICULAR PREMATURE COMPLEX CONSIDER LEFT VENTRICULAR HYPERTROPHY No previous ECG available for comparison Electronically Signed On 01-24-2023 11:21:48 EDT by Abdirizak Ramirez CV Abdirizak Camacho MD - 01/24/2023 IMPRESSION: SINUS RHYTHM VENTRICULAR PREMATURE COMPLEX CONSIDER LEFT VENTRICULAR HYPERTROPHY No previous ECG available for comparison Electronically Signed On 01-24-2023 11:21:48 EDT by Abdirizak Ramirez [facility] Interpretation and review of laboratory results Normal [facility] Troponin I.cardiac [Mass/Vol ]on 01-24-2023 Interpretation and review of laboratory results Normal [facility] Patients with high levels of Biotin oral intake (ie >5 mg/day) may have falsely decreased Troponin levels. [facility] Urinalysis complete panel (U )on 01-24-2023 Amorphous Crystals, Urine Few Abnormal Negative /HPF [facility] Bacteria LM.HPF (Urine sed) [#/Area] Few Abnormal Negative /HPF [facility] Bilirubin Ql (U) Negative Negative mg/dL [facility] Clarity (U) Turbid Abnormal Clear [facility] Color (U) Yellow Lt. Yellow [facility] Epithelial cells.squamous LM.HPF (Urine sed) [#/Area] 11-25 Abnormal [facility] Glucose Ql (U) 500 mg/dL Abnormal Normal (<70) [facility] Hemoglobin Ql (U) Negative Negative mg/dL [facility] Interpretation and review of laboratory results Abnormal [facility] Ketones (U) [Mass/Vol] 20 mg/dL Abnormal Negative [facility] Leukocyte esterase Test strip Ql (U) 250 Abnormal Negative [place]/uL [facility] Mucus LM.HPF (Urine sed) [#/Area] Few Negative /LPF [facility] Nitrite Ql (U) Negative Negative [facility] th pH (U) 6.5 [pH] 5.0 - 8.0 pH [facility] Protein (U) [Mass/Vol] 20 mg/dL Abnormal Negative [facility] RBC LM.HPF (Urine sed) [#/Area] 0-2 [facility] Specific gravity (U) [Rel density] 1.016 1.005 - 1.030 [facility] Urobilinogen (U) [Mass/Vol] Normal Normal (0-1) mg/dL [facility] Volume, Urine 12 mL [facility] Healt h WBC LM.HPF (Urine sed) [#/Area] 6-10 Abnormal [facility] Vital signson 01-24-2023 Heart rate 69 /min bpm [facility] CBC + DIFFon 01-17-2023 Baso # 0.00 x10EE3/UL Normal 0.00 - 0.10 [facility] Comment on above: Performed By: #### [id number] #### [facility],[address] [place] [address] Basophils/100 WBC (Bld) 0.4 % Normal 0.0 - 2.0 [facility] Comment on above: Performed By: #### [id number] #### [facility],[address] [place] [address] CBC + DIFF Normal [facility] Comment on above: Result Comment: CBC- COMPLETE BLOOD COUNT Performed By: #### [id number] #### [facility],[address] [place] [id number] EO # 0.00 x10EE3/UL Normal 0.00 - 0.50 [facility] Comment on above: Performed By: #### [id number] #### [facility],[address] [place], [place] [id number] Eosinophils/100 WBC (Bld) 0.3 % Normal 0.0 - 7.0 [facility] Comment on above: Performed By: #### [id number] #### [facility],[address] [place] [address] Erythrocyte distribution width (RBC) [Ratio] 15.2 % Normal 12.0 - 15.6 [facility] Comment on above: Performed By: #### 2 [id number] #### [facility],[address] [place] [address] 58844 Hematocrit (Bld) [Volume fraction] 40.9 % Normal 34.0 - 46.0 [facility] Comment on above: Performed By: #### 2 77891 #### [facility],[address] [place] [address] 04465 Hemoglobin (Bld) [Mass/Vol] 13.6 g/dL Normal 12.0 - 16.0 [facility] Comment on above: Performed By: #### 2 30224 #### [facility],[address] [place] [address] Lymph # 3.30 x10EE3/UL High 0.80 - 2.80 [facility] Comment on above: Performed By: #### 2 21688 #### [facility],[address] [place], [place] [id number] Lymphocytes/100 WBC (Bld) 30.0 % Normal 20.0 - 45.0 [facility] Comment on above: Performed By: #### 2 05240 #### [facility],[address] [place] [address] 19035 MANUAL DIFF N/A Normal [facility] Comment on above: Performed By: #### 2 37695 #### [facility],[address] [place] [address] 80039 MCH (RBC) [Entitic mass] 27 pg Normal 27 - 33 [facility] Comment on above: Performed By: #### 2 99868 #### [facility],[address] [place] [address] 37001 MCHC 33 X10 3 Normal 32 - 36 [facility] Comment on above: Performed By: #### 2 11316 #### [facility],[address] [place] [address] 63594 MCV (RBC) [Entitic vol] 80 fL Normal 80 - 99 [facility] Comment on above: Performed By: #### 2 89652 #### [facility],[address] [place] [address] 84503 Conway # 0.80 x10EE3/UL Normal 0.20 - 1.00 [facility] Comment on above: Performed By: #### 2 18527 #### [facility],[address] [place] [address] 34088 MONOS % 7.6 % Normal 0.0 - 10.0 [facility] Comment on above: Performed By: #### 2 63883 #### [facility],[address] [place] [address] 13854 Morphology Franky (Bld) [Interp] N/A Normal [facility] Comment on above: Performed By: #### 2 79242 #### [facility],[address] [place] [address] 17091 Neut # 6.80 x10EE3/UL Normal 1.50 - 7.10 [facility] Comment on above: Performed By: #### 2 94000 #### [facility],[address] [place] [address] 61460 Neutrophils/100 WBC (Bld) 61.7 % Normal 46.0 - 76.0 [facility] Comment on above: Performed By: #### 2 04510 #### [facility],[address] [place] [address] 86990 PLATELET 504 x10EE3/UL High 150 - 450 [facility] Comment on above: Performed By: #### 2 56298 #### [facility],[address] [place] [address] 82211 Platelet mean volume (Bld) [Entitic vol] 7.2 fL Normal 6.6 - 10.5 [facility] Comment on above: Result Comment: AUTO MATED DIFFERENTIAL Performed By: #### 2 54775 #### [facility],[address] [place] [address] 25156 RBC 5.14 x 10EE6/UL Normal 4.10 - 5.30 [facility] Comment on above: Performed By: #### 2 66502 #### [facility],[address] [place] [address] 23116 WBC 11.1 x 10EE3/UL High 4.5 - 10.8 [facility] Comment on above: Performed By: #### 2 44599 #### [facility],[address] [place] [address] 46869 CMP with eGFRon 01-17-2023 AGE 32 years Normal [facility] Comment on above: Performed By: #### 2 69567 #### [facility],[address] [place] [address] 29559 Albumin [Mass/Vol] 3.6 g/dL Normal 3.4 - 5.0 [facility] Comment on above: Performed By: #### 2 08418 #### [facility],[address] [place] [address] 02571 Albumin/Globulin [Mass ratio] 0.7 {ratio} Low 0.9 - 1.6 [facility] Comment on above: Performed By: #### 2 92660 #### [facility],[address] [place] [address] 41267 ALK PHOS 73 U/L Normal 46 - 116 [facility] Comment on above: Performed By: #### 2 18022 #### [facility],[address] [place] [address] 87094 ALT [Catalytic activity/Vol] 21 U/L Normal 14 - 59 [facility] Comment on above: Performed By: #### 2 13788 #### [facility],[address] [place] [address] 38058 Anion gap [Moles/Vol] 17 mmol/L Normal 10 - 20 [facility] Comment on above: Performed By: #### 2 50035 #### [facility],[address] [place] [address] 81088 AST [Catalytic activity/Vol] 12 U/L Low 13 - 39 [facility] Comment on above: Performed By: #### 2 25477 #### [facility],[address] [place] [address] 38299 B/C RATIO 9 ratio Normal 0 - 30 [facility] Comment on above: Performed By: #### 2 49543 #### [facility],[address] [place] [address] 52188 Bilirubin [Mass/Vol] 0.7 mg/dL Normal 0.2 - 1.0 [facility] Comment on above: Performed By: #### 2 50224 #### [facility],[address] [place] [address] 14627 Calcium [Mass/Vol] 9.1 mg/dL Normal 8.5 - 10.1 [facility] Comment on above: Performed By: #### 2 15100 #### [facility],[address] [place] [address] 46439 Chloride [Moles/Vol] 98 mmol/L Normal 98 - 107 [facility] Comment on above: Performed By: #### 2 60788 #### [facility],[address] [place] [address] 80455 CMP with eGFR Normal [facility] Comment on above: Result Comment: COMP REHENSIVE METABOLIC PANEL Performed By: #### 2 39378 #### [facility],[address] [place] [address] 87713 CO2 [Moles/Vol] 23.6 mmol/L Normal 21.0 - 32.0 [facility] Comment on above: Performed By: #### 2 77975 #### [facility],[address] [place] [address] 86314 Creatinine [Mass/Vol] 1.10 mg/dL High 0.55 - 1.02 [facility] Comment on above: Performed By: #### 2 45731 #### [facility],[address] [place] [address] 87575 eGFR 58 ML/MINUTE Low 60 - 999 [facility] Comment on above: Performed By: #### 2 23590 #### [facility],[address] [place] [address] 81204 GFR/1.73 sq M.predicted among non-blacks MDRD (S/P/Bld) [Vol rate/Area] mL/min/{1.73_m2} Normal 60 - 999 [facility] Comment on above: Result Comment: ACCO RDING TO THE NATIONAL KIDNEY DISEASE EDUCATION PROGRAM(NKDE), A NORMAL eGFR IS A VALUE GREATER THAN OR EQUAL TO 60 ML/MIN/1.73 SQ METERS. CHRONIC KIDNEY DISEASE: <60mL/MIN/1.73 SQ METERS KIDNEY FAILURE: <15mL/MIN/1.73 SQ METERS THIS TEST SHOULD ONLY BE USED FOR PATIENTS 18 YEARS OF AGE AND OLDER. Performed By: #### 2 12522 #### [facility],[address] [place] [address] 18814 Globulin (S) [Mass/Vol] 5.1 g/dL High 1.5 - 3.8 [facility] Comment on above: Performed By: #### 2 64155 #### [facility],[address] [place] [address] 47670 Glucose [Mass/Vol] 191 mg/dL High 74 - 106 [facility] Comment on above: Performed By: #### 2 92453 #### [address] [address] Potassium [Moles/Vol] 3.7 mmol/L Normal 3.5 - 5.1 [facility] Comment on above: Performed By: #### 2 28274 #### [address] [address] Protein [Mass/Vol] 8.7 g/dL High 6.4 - 8.2 [facility] Comment on above: Performed By: #### 2 25273 #### [facility],[address] [place] [address] 80845 Sodium [Moles/Vol] 135 mmol/L Low 136 - 145 [facility] Comment on above: Performed By: #### 2 45809 #### [facility],[address] [place] [address] 56785 Urea nitrogen [Mass/Vol] 10 mg/dL Normal 7 - [facility] Comment on above: Performed By: #### 2 66560 #### [facility],[address] [place] [address] ABDOMEN/PELVIS Won 2022 CT ABDOMEN/PELVIS W [address] [address] Patient: GHISLAINE GIVENS Phone#: : 1990 Age: 32 Gender: F Pt. Type: ER Account: [id number] Location: [facility] Ordering: GERALDINE ROLAND Exam Date: 01/17/2023/8:31 Family Phys: Charge Code: [id number] Physician: [place] Order #: [id number] Dose#: PROCEDURE: CT ABDOMEN/PELVIS WITH CONTRAST COMPARISON: [facility], CT, ABDOMEN/PELVIS W CON, 01/24/2022, 18:58. [...] 32 Gender: F Pt. Type: ER Account: [id number] Location: 05 Ordering: GERALDINE ROLAND Exam Date: 01/17/2023/8:31 Family Phys: Charge Code: [id number] Physician: [place] Order #: [id number] Dose#: OTHER: Negative. CONCLUSION: 1. UNDER FILLING VERSUS MUCOSAL THICKENING AT THE RECTOSIGMOID COLON. Dictated by: Cristy Penaloza MD on 01/17/2023 at 9:14 Approved by: Cristy Penaloza MD on 01/17/2023 at 9:19 Normal [facility] DRUG SCREEN URINE MEDICon AMPHETAMINES Negative Normal [facility] Comment on above: Performed By: #### 2 84753 #### [facility],[address] [place] [address] B-DIAZEPINES Negative Normal [facility] Comment on above: Performed By: #### 2 71668 #### [facility],[address] [place], [place] [phone] BARBITURATES Negative Normal [facility] Comment on above: Performed By: #### 2 81786 #### [facility],[address] [place], [place] [phone] COCAINE Negative Normal [facility] Comment on above: Performed By: #### 2 19085 #### [facility],[address] [place], [place] [id number] DRUG SCREEN URINE MEDIC Normal [facility] Comment on above: Result Comment: DRUG SCREEN - URINE Performed By: #### 2 24994 #### [facility],[address] [place] [address] 47464 METHADONE Negative Normal [facility] Comment on above: Performed By: #### 2 94869 #### [facility],[address] [place] [address] 38576 OPIATES Negative Normal [facility] Comment on above: Performed By: #### 2 06518 #### [facility],[address] [place] [address] 06385 PCP Negative Normal [facility] Comment on above: Performed By: #### 2 07551 #### [facility],[address] [place] [address] THC Positive Normal [facility] Comment on above: Result Comment: ERASTO ENTS RECEIVING PROTON PUMP INHIBITORS MAY DEMONSTRATE FALSE POSITIVE THC/CANNABINOID RESULTS. AN ALTERNATIVE CONFIRMATORY METHOD SHOULD BE CONSIDERED TO VERIFY POSITIVE RESULTS. Performed By: #### 2 22205 #### [facility],[address] [place], [place] [phone] LIPASEon 01-17-2023 Lipase [Catalytic activity/Vol] 143.0 U/L Normal 73.0 - 393 [facility] Comment on above: Performed By: #### 2 50095 #### [facility],[address] [place] [address] 52449 SERUM QUALon 01-17 EXTERNAL QC DONE? YES Normal [facility] Comment on above: Performed By: #### 2 46257 #### [facility],[address] [place], [place] [id number] INTERNAL QC PASS Normal [facility] Comment on above: Performed By: #### 2 47850 #### [facility],[address] [place] [address] 57862 SER Negative Normal NEGATIVE [facility] Comment on above: Performed By: #### 2 28810 #### [facility],[address] [place] [address] 80345 URINALYSISon 01-17-2023 Amorphous NONE Normal [facility] Comment on above: Performed By: #### 2 82213 #### [facility],[address] [place] [address] 55066 Bacteria 1+ Normal [facility] Comment on above: Performed By: #### 2 16047 #### [facility],[address] [place] [address] 38117 Bilirubin Ql (U) Negative Normal NORMAL: NEGATIVE [facility] Comment on above: Performed By: #### 2 00650 #### [facility],[address] [place] [address] 47276 Casts NONE Normal [facility] Comment on above: Performed By: #### 2 21334 #### [facility],[address] [place] [address] 98198 Clarity (U) clear Normal NORMAL: CLEAR [facility] Comment on above: Performed By: #### 2 23740 #### [facility],[address] [place] [address] 94740 Color (U) p.yel Normal NORMAL: YELLOW [facility] Comment on above: Performed By: #### 2 59991 #### [facility],[address] [place] [address] 99497 Crystals LM Nom (Urine sed) NONE Normal [facility] Comment on above: Performed By: #### 2 95478 #### [facility],[address] [place] [address] 41610 Epi Cells MODERATE Normal [facility] Comment on above: Performed By: #### 2 26651 #### [facility],[address] [place] [address] 16013 Glucose Ql (U) 50 Abnormal NORMAL: NORMAL [facility] Comment on above: Performed By: #### 2 48521 #### [facility],[address] [place] [address] 45476 Hemoglobin Ql (U) Negative Normal NORMAL: NEGATIVE [facility] Comment on above: Performed By: #### 2 97178 #### [facility],[address] [place] [address] Ketone 15 Abnormal NORMAL: NEGATIVE [facility] Comment on above: Performed By: #### 2 44439 #### [facility],[address] [place] [address] 73751 Leukocytes 100 Abnormal NORMAL: NEGATIVE [facility] Comment on above: Performed By: #### 2 77807 #### [facility],[address] [place] [address] Mucous NONE Normal [facility] Comment on above: Performed By: #### 2 86684 #### [facility],[address] [place] [address] Nitrite Ql (U) Negative Normal NORMAL: NEGATIVE [facility] Comment on above: Performed By: #### 2 87049 #### [facility],[address] [place] [address] pH (U) 7 [pH] Normal NORMAL: 5.0-8.0 [facility] Comment on above: Performed By: #### 2 22056 #### [facility],[address] [place] [address] Protein Ql (U) Negative Normal NORMAL: NEGATIVE [facility] Comment on above: Performed By: #### 2 73893 #### [facility],[address] [place] [address] Rbc NONE Normal 0-3/hpf [facility] Comment on above: Performed By: #### 2 91416 #### [facility],[address] [place] [address] Sp [place] 1.005 Low NORMAL: 1.010-1.030 [facility] Comment on above: Performed By: #### 2 91209 #### [facility],[address] [place] [address] Specimen Type UNSPECIFIED Normal [facility] Comment on above: Performed By: #### 2 77421 #### [facility],[address] [place] [address] Urinalysis dipstick W Reflex Microscopic panel (U) SEE BELOW Normal [facility] Comment on above: Result Comment: MICR OSCOPIC Performed By: #### 2 16096 #### [facility],[address] [place] [address] Urobilinog NORM Normal NORMAL: NORMAL [facility] Comment on above: Performed By: #### 2 70571 #### [facility],[address] [place] [address] Wbc 1-5 Normal 0-5/hpf [facility] Comment on above: Performed By: #### 2 16575 #### [facility],[address] [place] [address] Yeast NONE Normal [facility] Comment on above: Performed By: #### 2 10042 #### [facility],[address] [place], [place] [phone] Absolute lymphocyte countOrd ered By: Lexus Villatoro on 01-15-2023 Lymphocytes Auto (Unsp spec) [#/Vol] 3.20 10*3/uL 0.83-4.51 [facility] Basophil percentageOrdered B y: Lexus Villatoro on 01-15-2023 Basophil percentage 154 mg/dL 74-106 [facility] Basophil percentage 7.1 g/dL 6.4-8.2 [facility] Basophil percentage 0.60 mg/dL 0.20-1.00 [facility] Basophil percentage 136 mmol/L 136-145 [facility] Basophil percentage 3.1 mmol/L 3.5-5.1 [facility] Basophil percentage 105 mmol/L 98-107 [facility] Basophils (Bld) [#/Vol] 9.4 10*3/uL 4.4-11.0 [facility] Basophils (Bld) [#/Vol] 5.3 10*3/uL 2.0-7.7 [facility] Basophils/100 WBC (Bld) 0.3 % 0-1 [facility] Basophils/100 WBC (Bld) 56.4 % 47-70 [facility] Bilirubin [Mass/Vol] 0.60 mg/dL 0.20-1.00 [facility] Comment on above: For patients on eltr ombopag therapy, use of Dimension [place] TBIL is not recommended. Chloride [Moles/Vol] 105 mmol/L 98-107 [facility] Eosinophils/100 WBC (Bld) 0.3 % 0-5 [facility] Glucose [Mass/Vol] 154 mg/dL 74-106 [facility] Comment on above: Fasting Glucose resu lt greater than or equal to 126 mg/dL suggests DIABETES MELLITUS per A.D.A. criteria. Neutrophils (Bld) [#/Vol] 5.3 10*3/uL 2.0-7.7 [facility] Neutrophils/100 WBC (Bld) 56.4 % 47-70 [facility] Potassium [Moles/Vol] 3.1 mmol/L 3.5-5.1 [facility] Protein [Mass/Vol] 7.1 g/dL 6.4-8.2 [facility] Sodium [Moles/Vol] 136 mmol/L 136-145 [facility] WBC (Bld) [#/Vol] 9.4 10*3/uL 4.4-11.0 [facility] Blood erythrocytes count (nu mber/volume)Ordered By: Lexus Villatoro on 01-15-2023 RBC (Bld) [#/Vol] 4.43 10*6/uL 4.2-5.4 [facility] Blood hemoglobin measurement (mass/volume)Ordered By: Lexus Villatoro on 01-15-2023 Hemoglobin (Bld) [Mass/Vol] 11.7 g/dL 12.0-15.0 [facility] Blood lymphocytes/100 leukoc ytesOrdered By: Lexus Villatoro on 01-15-2023 Lymphocytes/100 WBC (Bld) 34.2 % 19-41 [facility] Blood monocytes/100 leukocyt esOrdered By: Lexus Villatoro on 01-15-2023 Monocytes/100 WBC (Bld) 8.2 % 0-10 [facility] Blood platelet mean volumeOr dered By: Lexus Villatoro on 01-15-2023 Platelet mean volume (Bld) [Entitic vol] 9.3 fL 6.2-12.0 [facility] Determination of erythrocyte mean corpuscular volume (MCV)Ordered By: Lexus Villatoro on 01-15-2023 MCV (RBC) [Entitic vol] 80.4 fL 81-99 [facility] Glucose Glucometer (BldC) [M ass/Vol]Ordered By: Lexus Villatoro on 01-15-2023 Glucose [Mass/Vol] 247 mg/dL 74-106 [facility] Comment on above: MANAGEMENT OF PATIEN T CARE PER NURSING PROTOCOL Hematocrit Auto (Bld) [Volum e fraction]Ordered By: Lexus Villatoro on 01-15-2023 Hematocrit (Bld) [Volume fraction] 35.6 % 37-47 [facility] Laboratory - Chemistry and C hemistry - challengeOrdered By: Lexus Villatoro on 01-15-2023 ALP [Catalytic activity/Vol] 54 U/L 45-117 [facility] ALT [Catalytic activity/Vol] 14 U/L 13-56 [facility] CO2 [Moles/Vol] 26.0 mmol/L 21.0-32.0 [facility] Globulin (S) [Mass/Vol] 4.1 g/dL 2.2-4.2 [facility] Magnesium [Mass/Vol] 2.0 mg/dL 1.6-2.6 [facility] Urea nitrogen/Creatinine [Mass ratio] 6.6 mg/mg 10-20 [facility] Laboratory - Hematology and Cell countsOrdered By: Lexus Villatoro on 01-15-2023 Erythrocyte distribution width (RBC) [Entitic vol] 40.1 fL 35.1-43.9 [facility] Erythrocyte distribution width (RBC) [Ratio] 13.8 % 11.6-14.6 [facility] Immature granulocytes/100 WBC (Bld) 0.600 % 0.0-0.9 [facility] Comment on above: IG% - Immature Granu locytes (promyelocytes, myelocytes and metamyelocytes) > 1% indicates that a LEFT SHIFT is Present. MCH (RBC) [Entitic mass] 26.4 pg 27.0-32.0 [facility] Nucleated RBC/100 WBC (Bld) [Ratio] 0 % 0[facility] [Mass/Vol]Or dered By: Lexus Villatoro on 01-15-2023 MCHC (RBC) [Mass/Vol] 32.9 g/dL 32-36 [facility] No Panel InformationOrdered By: Lexus Villatoro on 01-15-2023 Estimated Creatinine Clearance Calc 84.62 ml/min [facility] Estimated GFR (MDRD) Amer 93 mL/min >60 [facility] Comment on above: GFR Calc Estimated GFR (MDRD) Non-Af Amer 77 mL/min >60 [facility] Comment on above: Non- GFR Calc Thyroid Stimulating Hormone (TSH) 2.30 uIU/mL 0.358-3.74 [facility] 26.4 pg 27.0-32.0 [facility] 13.8 % 11.6-14.6 [facility] 40.1 fl 35.1-43.9 [facility] 0.600 % 0.0-0.9 [facility] 0 % 0-5 [facility] 77 mL/min >60 [facility] 93 mL/min >60 [facility] 84.62 ml/min [facility] 6.6 RATIO 10-20 [facility] 4.1 g/dL 2.2-4.2 [facility] 54 U/L 45-117 [facility] 14 U/L 13-56 [facility] 2.0 mg/dL 1.6-2.6 [facility] 26.0 mmol/L 21.0-32.0 [facility] 2.30 uIU/mL 0.358-3.74 [facility] Platelets bldOrdered By: Porsche Villatoro on 01-15-2023 Platelets (Bld) [#/Vol] 361 10*3/uL 150-450 [facility] Serum or plasma albumin hussein urement (mass/volume)Ordered By: Lexus Villatoro on 01-15-2023 Albumin [Mass/Vol] 3.0 g/dL 3.2-5.0 [facility] Serum or plasma albumin/glob ulin mass ratioOrdered By: Lexus Villatoro on 01-15-2023 Albumin/Globulin [Mass ratio] 0.7 {ratio} 0.9-2.4 [facility] Serum or plasma calcium hussein urement (mass/volume)Ordered By: Lexus Villatoro on 01-15-2023 Calcium [Mass/Vol] 8.2 mg/dL 8.5-10.1 [facility] Serum or plasma creatinine m easurement (mass/volume)Ordered By: Lexus Villatoro on 01-15-2023 Creatinine [Mass/Vol] 0.91 mg/dL 0.55-1.02 [facility] Comment on above: The validity of the calculated GFR & GFRAA in patients over 70 years has not been determined. Clinical correlation is essential. Serum or plasma urea nitroge n measurement (mass/volume)Ordered By: Lexus Villatoro on 01-15-2023 Urea nitrogen [Mass/Vol] 6 mg/dL 7-18 [facility] Thin prep Papanicolaou smear with manual screeningOrdered By: Lexus Villatoro on 01-15-2023 Thin prep Papanicolaou smear with manual screening 13 U/L 15-37 [facility] Thin prep Papanicolaou smear with manual screening 5 5-15 [facility] Bacteria identified Cx Nom ( U)Ordered By: Willie Dhillon on 01-14-2023 Culture, urine Positive [facility] Basophil percentageOrdered B y: Willie Dhillon on 01-14-2023 Basophil percentage 1.3 mmol/L 0.4-2.0 [facility] Lactate [Moles/Vol] 1.3 mmol/L 0.4-2.0 [facility] Basophil percentage 0-5 SEEN /hpf 0-5 [facility] Beta hCG serum qualOrdered B y: Willie Dhillon on 01-14-2023 Beta HCG ( test) Ql Negative [facility] Bilirubin Test strip Ql (U)O rdered By: Willie Dhillon on 01-14-2023 Bilirubin Ql (U) Negative Negative [facility] Culture, urineOrdered By: Reji March on 01-14-2023 Bacteria identified Cx Nom (U) Positive [facility] Ketones Test strip Ql (U)Ord ered By: Willie Dhillon on 01-14-2023 Ketones Ql (U) 5 mg/dl Negative [facility] Laboratory - Drug toxicology Ordered By: Lexus Villatoro on 01-14-2023 Amphetamines Ql (U) Negative <1000 ng/mL [facility] Benzodiazepines Ql (U) Negative < 200 ng/mL [facility] Cannabinoids Screen Ql (U) Positive < 50 ng/mL [facility] Cocaine Ql (U) Negative < 300 ng/mL [facility] Opiates Ql (U) Negative < 300 ng/mL [facility] Mucus LM Ql (Urine sed)Order ed By: Willie Dhillon on 01-14-2023 Mucus Ql (Urine sed) 0 SEEN /hpf [facility] Nitrite Test strip Ql (U)Ord ered By: Willie Dhillon on 01-14-2023 Nitrite Ql (U) Negative Negative [facility] No Panel InformationOrdered By: Lexus Villatoro on 01-14-2023 MDMA (Ecstasy) Screen Negative < 500 ng/mL [facility] Urine Barbiturates Screen Negative < 200 ng/mL [facility] Urine Drug Screen Comment [facility] Comment on above: CONFIRMATORY TESTING FOR ALL [...] Urine Methadone Screen Negative < 300 ng/mL [facility] Negative < 300 ng/mL [facility] Positive < 50 ng/mL [facility] Protein Test strip Ql (U)Ord ered By: Willie Dhillon on 01-14-2023 Protein Ql (U) 15 mg/dl Negative [facility] Squamous epithelial cells de tection in urine sediment by light microscopyOrdered By: Willie Dhillon on 01-14-2023 Epithelial cells.squamous LM Ql (Urine sed) 0-5 SEEN /hpf 5-10 [facility] Urine blood detectionOrdered By: Willie Dhillon on 01-14-2023 RBC Ql (U) 10 /ul Negative [facility] RBC Ql (U) 0-5 SEEN /hpf 0-5 [facility] Urine clarityOrdered By: Heath Dhillon on 01-14-2023 Clarity (U) Clear Clear [facility] Urine color determinationOrd ered By: Willie Dhillon on 01-14-2023 Color (U) Yellow Yellow [facility] Urine glucose detectionOrder ed By: Willie Dhillon on 01-14-2023 Glucose Ql (U) 250 mg/dl Normal [facility] Urine leukocyte esterase det ection by dipstickOrdered By: Willie Dhillon on 01-14-2023 Leukocyte esterase Test strip Ql (U) 25 /ul Negative [facility] Urine pHOrdered By: Willie mo on 01-14-2023 pH (U) 8.0 [pH] 5.0 - 8.0 [facility] Urine phencyclidine (PCP) de tectionOrdered By: Lexus Villatoro on 01-14-2023 Phencyclidine Ql (U) Negative < 25 ng/mL [facility] Urine sediment bacteria coun t by microscopy (number/high power field)Ordered By: Willie Dhillon on 01-14-2023 Bacteria LM.HPF (Urine sed) [#/Area] RARE /hpf None Seen [facility] Urine specific gravity measu rementOrdered By: Willie Dhillon on 01-14-2023 Specific gravity (U) [Rel density] 1.015 1.002-1.030 [facility] Urobilinogen Auto test strip Ql (U)Ordered By: Willie Dhillon on 01-14-2023 Urobilinogen Ql (U) Normal mg/dl Normal [facility] Basophil percentageOrdered B y: Deann Guerrero on 01-13-2023 Basophil percentage 25-50 SEEN /hpf 0-5 [facility] Basophil percentage 235 mg/dL 74-106 [facility] Basophil percentage 137 mmol/L 136-145 [facility] Basophil percentage 3.2 mmol/L 3.5-5.1 [facility] Basophil percentage 107 mmol/L 98-107 [facility] Chloride [Moles/Vol] 107 mmol/L 98-107 [facility] Glucose [Mass/Vol] 235 mg/dL 74-106 [facility] Comment on above: Glucose result great er than or equal to 200 mg/dLsuggests DIABETES MELLITUS per A.D.A. criteria. Potassium [Moles/Vol] 3.2 mmol/L 3.5-5.1 [facility] Sodium [Moles/Vol] 137 mmol/L 136-145 [facility] Beta hCG serum qualOrdered B y: Deann Guerrero on 01-13-2023 Beta HCG ( test) Ql Negative [facility] Bilirubin Test strip Ql (U)O rdered By: Deann Guerrero on 01-13-2023 Bilirubin Ql (U) Negative Negative [facility] Ketones Test strip Ql (U)Ord ered By: Deann Guerrero on 01-13-2023 Ketones Ql (U) 15 mg/dl Negative [facility] Laboratory - Chemistry and C hemistry - challengeOrdered By: Deann Guerrero on 01-13-2023 CO2 [Moles/Vol] 23.0 mmol/L 21.0-32.0 [facility] Urea nitrogen/Creatinine [Mass ratio] 7.6 mg/mg 04-30 [facility] Mucus LM Ql (Urine sed)Order ed By: Deann Guerrero on 01-13-2023 Mucus Ql (Urine sed) 1+ /hpf [facility] Nitrite Test strip Ql (U)Ord ered By: Deann Guerrero on 01-13-2023 Nitrite Ql (U) Negative Negative [facility] No Panel InformationOrdered By: Deann Guerrero on 01-13-2023 Estimated Creatinine Clearance Calc 73.34 ml/min [facility] Estimated GFR (MDRD) Amer 79 mL/min >60 [facility] Comment on above: GFR Calc Estimated GFR (MDRD) Non-Af Amer 65 mL/min >60 [facility] Comment on above: Non- GFR Calc 65 mL/min >60 [facility] 79 mL/min >60 [facility] 73.34 ml/min [facility] 7.6 RATIO 04-30 [facility] 23.0 mmol/L 21.0-32.0 [facility] Protein Test strip Ql (U)Ord ered By: Deann Guerrero on 01-13-2023 Protein Ql (U) 30 mg/dl Negative [facility] Serum or plasma calcium hussein urement (mass/volume)Ordered By: Deann Guerrero on 01-13-2023 Calcium [Mass/Vol] 8.5 mg/dL 8.5-10.1 [facility] Serum or plasma creatinine m easurement (mass/volume)Ordered By: Deann Guerrero on 01-13-2023 Creatinine [Mass/Vol] 1.05 mg/dL 0.55-1.02 [facility] Comment on above: The validity of the calculated GFR & GFRAA in patients over 70 years has not been determined. Clinical correlation is essential. Serum or plasma urea nitroge n measurement (mass/volume)Ordered By: Deann Guerrero on 01-13-2023 Urea nitrogen [Mass/Vol] 8 mg/dL 7-18 [facility] Squamous epithelial cells de tection in urine sediment by light microscopyOrdered By: Deann Guerrero on 01-13-2023 Epithelial cells.squamous LM Ql (Urine sed) 5-10 SEEN /hpf 5-10 [facility] Thin prep Papanicolaou smear with manual screeningOrdered By: Deann Guerrero on 01-13-2023 Thin prep Papanicolaou smear with manual screening 7 5-15 [facility] Urine blood detectionOrdered By: Deann Guerrero on 01-13-2023 RBC Ql (U) 10 /ul Negative [facility] RBC Ql (U) 0-5 SEEN /hpf 0-5 [facility] Urine clarityOrdered By: Sulema Guerrero on 01-13-2023 Clarity (U) Sl. Cloudy Clear [facility] Urine color determinationOrd ered By: Deann Guerrero on 01-13-2023 Color (U) Yellow Yellow [facility] Urine glucose detectionOrder ed By: Deann Guerrero on 01-13-2023 Glucose Ql (U) 250 mg/dl Normal [facility] Urine leukocyte esterase det ection by dipstickOrdered By: Deann Guerrero on 01-13-2023 Leukocyte esterase Test strip Ql (U) 500 /ul Negative [facility] Urine pHOrdered By: Deann Guerrero on 01-13-2023 pH (U) 6.0 [pH] 5.0 - 8.0 [facility] Urine sediment bacteria coun t by microscopy (number/high power field)Ordered By: Deann Guerrero on 01-13-2023 Bacteria LM.HPF (Urine sed) [#/Area] 1 /[HPF] None Seen [facility] Urine specific gravity measu rementOrdered By: Deann Guerrero on 01-13-2023 Specific gravity (U) [Rel density] 1.020 1.002-1.030 [facility] Urobilinogen Auto test strip Ql (U)Ordered By: Deann Guerrero on 01-13-2023 Urobilinogen Ql (U) 1 mg/dl Normal [facility] Absolute lymphocyte countOrd ered By: Perico Norman on 01-12-2023 Lymphocytes Auto (Unsp spec) [#/Vol] 1.80 10*3/uL 0.83-4.51 [facility] Basophil percentageOrdered B y: Fabricio Guevara on 01-12-2023 Basophil percentage 208 mg/dL 74-106 [facility] Basophil percentage 137 mmol/L 136-145 [facility] Basophil percentage 3.0 mmol/L 3.5-5.1 [facility] Basophil percentage 105 mmol/L 98-107 [facility] Chloride [Moles/Vol] 105 mmol/L 98-107 [facility] Glucose [Mass/Vol] 208 mg/dL 74-106 [facility] Comment on above: Glucose result great er than or equal to 200 mg/dLsuggests DIABETES MELLITUS per A.D.A. criteria. Potassium [Moles/Vol] 3.0 mmol/L 3.5-5.1 [facility] Sodium [Moles/Vol] 137 mmol/L 136-145 [facility] Basophil percentageOrdered B y: Perico Norman on 01-12-2023 Basophil percentage 267 mg/dL 74-106 [facility] Basophil percentage 7.8 g/dL 6.4-8.2 [facility] Basophil percentage 0.40 mg/dL 0.20-1.00 [facility] Basophil percentage 134 mmol/L 136-145 [facility] Basophil percentage 3.4 mmol/L 3.5-5.1 [facility] Basophil percentage 101 mmol/L 98-107 [facility] Basophils (Bld) [#/Vol] 12.4 10*3/uL 4.4-11.0 [facility] Basophils (Bld) [#/Vol] 9.9 10*3/uL 2.0-7.7 [facility] Basophils/100 WBC (Bld) 0.3 % 0-1 [facility] Basophils/100 WBC (Bld) 79.6 % 47-70 [facility] Basophils/100 WBC (Bld) 0.0 % 0-5 [facility] Bilirubin [Mass/Vol] 0.40 mg/dL 0.20-1.00 [facility] Comment on above: For patients on eltr ombopag therapy, use of Dimension [place] TBIL is not recommended. Chloride [Moles/Vol] 101 mmol/L 98-107 [facility] Eosinophils/100 WBC (Bld) 0.0 % 0-5 [facility] Glucose [Mass/Vol] 267 mg/dL 74-106 [facility] Comment on above: Glucose result great er than or equal to 200 mg/dLsuggests DIABETES MELLITUS per A.D.A. criteria. Neutrophils (Bld) [#/Vol] 9.9 10*3/uL 2.0-7.7 [facility] Neutrophils/100 WBC (Bld) 79.6 % 47-70 [facility] Potassium [Moles/Vol] 3.4 mmol/L 3.5-5.1 [facility] Protein [Mass/Vol] 7.8 g/dL 6.4-8.2 [facility] Sodium [Moles/Vol] 134 mmol/L 136-145 [facility] WBC (Bld) [#/Vol] 12.4 10*3/uL 4.4-11.0 [facility] Blood erythrocytes count (nu mber/volume)Ordered By: Perico Norman on 01-12-2023 RBC (Bld) [#/Vol] 4.62 10*6/uL 4.2-5.4 [facility] Blood hemoglobin measurement (mass/volume)Ordered By: Perico Norman on 01-12-2023 Hemoglobin (Bld) [Mass/Vol] 12.1 g/dL 12.0-15.0 [facility] Blood lymphocytes/100 leukoc ytesOrdered By: Perico Norman on 01-12-2023 Lymphocytes/100 WBC (Bld) 14.5 % 19-41 [facility] Blood monocytes/100 leukocyt esOrdered By: Perico Norman on 01-12-2023 Monocytes/100 WBC (Bld) 5.0 % 0-10 [facility] Blood platelet mean volumeOr dered By: Perico Norman on 01-12-2023 Platelet mean volume (Bld) [Entitic vol] 9.0 fL 6.2-12.0 [facility] Determination of erythrocyte mean corpuscular volume (MCV)Ordered By: Perico Norman on 01-12-2023 MCV (RBC) [Entitic vol] 81.0 fL 81-99 [facility] Direct bilirubinOrdered By: Perico Norman on 01-12-2023 Bilirubin.direct [Mass/Vol] 0.14 mg/dL 0.00-0.30 [facility] Hematocrit Auto (Bld) [Volum e fraction]Ordered By: Perico Norman on 01-12-2023 Hematocrit (Bld) [Volume fraction] 37.4 % 37-47 [facility] Laboratory - Chemistry and C hemistry - challengeOrdered By: Fabricio Guevara on 01-12-2023 CO2 [Moles/Vol] 26.0 mmol/L 21.0-32.0 [facility] Urea nitrogen/Creatinine [Mass ratio] 7.0 mg/mg 10-20 [facility] Laboratory - Chemistry and C hemistry - challengeOrdered By: Perico Norman on 01-12-2023 ALP [Catalytic activity/Vol] 68 U/L 45-117 [facility] ALT [Catalytic activity/Vol] 14 U/L 13-56 [facility] CO2 [Moles/Vol] 24.0 mmol/L 21.0-32.0 [facility] Globulin (S) [Mass/Vol] 4.5 g/dL 2.2-4.2 [facility] Lipase [Catalytic activity/Vol] 37 U/L 13-75 [facility] Comment on above: Please note:LIPASE r evised reference range effective 22. New Lipase methodology. Expected to produce lower values than the previous assay method. NEW Reference Range: 13 - 75 U/L Urea nitrogen/Creatinine [Mass ratio] 9.7 mg/mg 10-20 [facility] Laboratory - Hematology and Cell countsOrdered By: Perico Norman on 01-12-2023 Erythrocyte distribution width (RBC) [Entitic vol] 38.9 fL 35.1-43.9 [facility] Erythrocyte distribution width (RBC) [Ratio] 13.7 % 11.6-14.6 [facility] Immature granulocytes/100 WBC (Bld) 0.600 % 0.0-0.9 [facility] Comment on above: IG% - Immature Granu locytes (promyelocytes, myelocytes and metamyelocytes) > 1% indicates that a LEFT SHIFT is Present. MCH (RBC) [Entitic mass] 26.2 pg 27.0-32.0 [facility] Nucleated RBC/100 WBC (Bld) [Ratio] 0 % 0-5 [facility] MCHC Auto (RBC) [Mass/Vol]Or dered By: Perico Norman on 01-12-2023 MCHC (RBC) [Mass/Vol] 32.4 g/dL 32-36 [facility] No Panel InformationOrdered By: Fabricio Guevara on 01-12-2023 Estimated Creatinine Clearance Calc 77.01 ml/min [facility] Estimated GFR (MDRD) [facility] Amer 84 mL/min >60 [facility] Comment on above: GFR Calc Estimated GFR (MDRD) Non-Af Amer 69 mL/min >60 [facility] Comment on above: Non- GFR Calc 69 mL/min >60 [facility] 84 mL/min >60 [facility] 77.01 ml/min [facility] 7.0 RATIO 10-20 [facility] 26.0 mmol/L 21.0-32.0 [facility] No Panel InformationOrdered By: Perico Norman on 01-12-2023 Estimated Creatinine Clearance Calc 68.15 ml/min [facility] Estimated GFR (MDRD) Amer 72 mL/min >60 [facility] Comment on above: GFR Calc Estimated GFR (MDRD) Non-Af Amer 60 mL/min >60 [facility] Comment on above: Non- GFR Calc 26.2 pg 27.0-32.0 [facility] 13.7 % 11.6-14.6 [facility] 38.9 fl 35.1-43.9 [facility] 0.600 % 0.0-0.9 [facility] 0 % 0-5 [facility] 60 mL/min >60 [facility] 72 mL/min >60 [facility] 68.15 ml/min [facility] 9.7 RATIO 10-20 [facility] 4.5 g/dL 2.2-4.2 [facility] 37 U/L 13-75 [facility] 68 U/L 45-117 [facility] 14 U/L 13-56 [facility] 24.0 mmol/L 21.0-32.0 [facility] Platelets bldOrdered By: Bakari Norman on 01-12-2023 Platelets (Bld) [#/Vol] 352 10*3/uL 150-450 [facility] Serum or plasma albumin hussein urement (mass/volume)Ordered By: Perico Norman on 01-12-2023 Albumin [Mass/Vol] 3.3 g/dL 3.2-5.0 [facility] Serum or plasma calcium hussein urement (mass/volume)Ordered By: Fabricio Guevara on 01-12-2023 Calcium [Mass/Vol] 8.7 mg/dL 8.5-10.1 [facility] Serum or plasma calcium hussein urement (mass/volume)Ordered By: Perico Norman on 01-12-2023 Calcium [Mass/Vol] 9.0 mg/dL 8.5-10.1 [facility] Serum or plasma creatinine m easurement (mass/volume)Ordered By: Fabricio Guevara on 01-12-2023 Creatinine [Mass/Vol] 1.00 mg/dL 0.55-1.02 [facility] Comment on above: The validity of the calculated GFR & GFRAA in patients over 70 years has not been determined. Clinical correlation is essential. Serum or plasma creatinine m easurement (mass/volume)Ordered By: Perico Normna on 01-12-2023 Creatinine [Mass/Vol] 1.13 mg/dL 0.55-1.02 [facility] Comment on above: The validity of the calculated GFR & GFRAA in patients over 70 years has not been determined. Clinical correlation is essential. Serum or plasma urea nitroge n measurement (mass/volume)Ordered By: Fabricio Guevara on 01-12-2023 Urea nitrogen [Mass/Vol] 7 mg/dL 01-26 [facility] Serum or plasma urea nitroge n measurement (mass/volume)Ordered By: Perico Norman on 01-12-2023 Urea nitrogen [Mass/Vol] 11 mg/dL 01-26 [facility] Thin prep Papanicolaou smear with manual screeningOrdered By: Fabricio Guevara on 01-12-2023 Thin prep Papanicolaou smear with manual screening 6 11-23 [facility] Thin prep Papanicolaou smear with manual screeningOrdered By: Perico Norman on 01-12-2023 Thin prep Papanicolaou smear with manual screening 12 U/L 15 [facility] Thin prep Papanicolaou smear with manual screening 9 11-23 [facility] .Auto Diffon 01-10-2023 Basophil, Absolute 0.0 10 3/mcL Normal 0.0-0.2 [facility] ([place]) Comment on above: Performed By: #### A DIFF, GFR, MDW, CMP, ANEU, CBC, LIP #### [address] [address] Basophils/100 WBC (Bld) 0.2 % Normal 0.0-2.5 [facility] ([place]) Comment on above: Performed By: #### A DIFF, GFR, MDW, CMP, ANEU, CBC, LIP #### [address] [address] Eosinophil, Absolute 0.0 10 3/mcL Normal 0.0-0.4 [facility] ([place]) Comment on above: Performed By: #### A DIFF, GFR, MDW, CMP, ANEU, CBC, LIP #### [address] [address] Eosinophils/100 WBC (Bld) 0.1 % Normal 0.0-7.0 [facility] ([place]) Comment on above: Performed By: #### A DIFF, GFR, MDW, CMP, ANEU, CBC, LIP #### [address] [address] Lymphocyte, Absolute 2.7 10 3/mcL Normal 0.8-3.9 [facility] ([place]) Comment on above: Performed By: #### A DIFF, GFR, MDW, CMP, ANEU, CBC, LIP #### [address] [address] Lymphocytes/100 WBC (Bld) 17.3 % Normal 10.0-50.0 [facility] ([place]) Comment on above: Performed By: #### A DIFF, GFR, MDW, CMP, ANEU, CBC, LIP #### [address] [address] Monocyte, Absolute 0.9 10 3/mcL Normal 0.2-1.0 [facility] ([place]) Comment on above: Performed By: #### A DIFF, GFR, MDW, CMP, ANEU, CBC, LIP #### [address] [address] Monocytes/100 WBC (Bld) 5.7 % Normal 1.7-13.0 [facility] ([place]) Comment on above: Performed By: #### A DIFF, GFR, MDW, CMP, ANEU, CBC, LIP #### [address] [address] Neutrophils/100 WBC (Bld) 76.7 % Normal 37.0-80.0 [facility] ([place]) Comment on above: Performed By: #### A DIFF, GFR, MDW, CMP, ANEU, CBC, LIP #### [address] [address] .GFRon 01-10-2023 GFR 64 ml/min/1.73sqm Normal [facility] ([place]) Comment on above: Result Comment: GFR Population [...] GFR, MDW, CMP, ANEU, CBC, LIP #### [address] [address] GFR Non- 53 ml/min/1.73sqm Normal [facility] ([place]) Comment on above: Result Comment: GFR Population [...] GFR, MDW, CMP, ANEU, CBC, LIP #### [address] [address] .MDWon 01-10-2023 Monocyte Distribution Width 14.44 Normal 0.00-20.00 [facility] ([place]) Comment on above: Result Comment: For ED adult patients suspected of sepsis, MDW<=20.0 does not rule out sepsis or risk of sepsis Performed By: #### A DIFF, GFR, MDW, CMP, ANEU, CBC, LIP #### [address] [address] .NEUABSon 01-10-2023 Neutrophil, Absolute 11.9 10 3/mcL High 2.9-6.2 [facility] ([place]) Comment on above: Performed By: #### A DIFF, GFR, MDW, CMP, ANEU, CBC, LIP #### [place] [address] .Urinalysis Microscopic (AO) on 01-10-2023 UA Bacteria Trace Abnormal [facility] ([place]) Comment on above: Performed By: #### A DIFF, GFR, MDW, CMP, ANEU, CBC, LIP #### [address] [address] UA RBC 0-5 Abnormal None Seen [facility] ([place]) Comment on above: Performed By: #### A DIFF, GFR, MDW, CMP, ANEU, CBC, LIP #### [address] [address] UA Squam Epithelial LOADED Abnormal None Seen [facility] ([place]) Comment on above: Performed By: #### A DIFF, GFR, MDW, CMP, ANEU, CBC, LIP #### [place] [address] UA WBC 0-5 Abnormal None Seen [facility] ([place]) Comment on above: Performed By: #### A DIFF, GFR, MDW, CMP, ANEU, CBC, LIP #### [place] [address] UA Yeast Trace Abnormal [facility] ([place]) Comment on above: Performed By: #### A DIFF, GFR, MDW, CMP, ANEU, CBC, LIP #### [place] [address] CBCon 01-10-2023 Erythrocyte distribution width (RBC) [Ratio] 14.7 % High 11.5-14.5 [facility] ([place]) Comment on above: Performed By: #### A DIFF, GFR, MDW, CMP, ANEU, CBC, LIP #### [place] [address] Hematocrit (Bld) [Volume fraction] 38.7 % Normal 37.0-47.0 [facility] ([place]) Comment on above: Performed By: #### A DIFF, GFR, MDW, CMP, ANEU, CBC, LIP #### [place] [address] Hgb 12.9 G/dL Normal 12.0-16.0 [facility] ([place]) Comment on above: Performed By: #### A DIFF, GFR, MDW, CMP, ANEU, CBC, LIP #### [address] [address] MCH (RBC) [Entitic mass] 25.7 pg Low 27.0-31.2 [facility] ([place]) Comment on above: Performed By: #### A DIFF, GFR, MDW, CMP, ANEU, CBC, LIP #### [address] [address] MCHC 33.3 G/dL Normal 33.0-37.0 [facility] ([place]) Comment on above: Performed By: #### A DIFF, GFR, MDW, CMP, ANEU, CBC, LIP #### [address] [address] MCV (RBC) [Entitic vol] 77.4 fL Low 80.0-94.0 [facility] ([place]) Comment on above: Performed By: #### A DIFF, GFR, MDW, CMP, ANEU, CBC, LIP #### [address] [address] Platelet 438 10 3/mcL High 130-400 [facility] ([place]) Comment on above: Performed By: #### A DIFF, GFR, MDW, CMP, ANEU, CBC, LIP #### [address] [address] Platelet mean volume (Bld) [Entitic vol] 7.2 fL Low 7.4-10.4 [facility] ([place]) Comment on above: Performed By: #### A DIFF, GFR, MDW, CMP, ANEU, CBC, LIP #### [address] [address] RBC 5.01 10 6/mcL Normal 4.20-5.40 [facility] ([place]) Comment on above: Performed By: #### A DIFF, GFR, MDW, CMP, ANEU, CBC, LIP #### [address] [address] WBC 15.5 10 3/mcL High 4.6-10.8 [facility] ([place]) Comment on above: Performed By: #### A DIFF, GFR, MDW, CMP, ANEU, CBC, LIP #### [address] [address] CMPon 01-10-2023 Albumin Level 3.9 G/dL Normal 3.5-5.0 [facility] ([place]) Comment on above: Performed By: #### A DIFF, GFR, MDW, CMP, ANEU, CBC, LIP #### [address] [address] Albumin/Globulin [Mass ratio] 0.9 {ratio} Low 1.1-2.5 [facility] ([place]) Comment on above: Performed By: #### A DIFF, GFR, MDW, CMP, ANEU, CBC, LIP #### [address] [address] ALP [Catalytic activity/Vol] 84 U/L Normal 40-135 [facility] ([place]) Comment on above: Performed By: #### A DIFF, GFR, MDW, CMP, ANEU, CBC, LIP #### [place] [id number] ALT [Catalytic activity/Vol] 17 U/L Normal 14-59 [facility] ([place]) Comment on above: Performed By: #### A DIFF, GFR, MDW, CMP, ANEU, CBC, LIP #### [place] [id number] AST [Catalytic activity/Vol] 13 U/L Normal 10-40 [facility] ([place]) Comment on above: Performed By: #### A DIFF, GFR, MDW, CMP, ANEU, CBC, LIP #### [address] [address] Bili Total 0.6 mg/dL Normal 0.2-1.0 [facility] ([place]) Comment on above: Result Comment: Use of this assay is not recommended for patients undergoing treatment with eltrombopag due to the potential for falsely elevated results. Performed By: #### A DIFF, GFR, MDW, CMP, ANEU, CBC, LIP #### [address] [address] BUN/Creatinine Ratio 11 ratio Normal 7-27 [facility] ([place]) Comment on above: Performed By: #### A DIFF, GFR, MDW, CMP, ANEU, CBC, LIP #### [address] [address] Calcium [Mass/Vol] 9.4 mg/dL Normal 8.4-10.2 [facility] ([place]) Comment on above: Performed By: #### A DIFF, GFR, MDW, CMP, ANEU, CBC, LIP #### [address] [address] Chloride [Moles/Vol] 99 mmol/L Normal 98-107 [facility] ([place]) Comment on above: Performed By: #### A DIFF, GFR, MDW, CMP, ANEU, CBC, LIP #### [address] [address] CO2 [Moles/Vol] 22 mmol/L Normal 22-29 [facility] ([place]) Comment on above: Performed By: #### A DIFF, GFR, MDW, CMP, ANEU, CBC, LIP #### [address] [address] Creatinine [Mass/Vol] 1.20 mg/dL High 0.55-1.02 [facility] ([place]) Comment on above: Performed By: #### A DIFF, GFR, MDW, CMP, ANEU, CBC, LIP #### [address] [address] Electrolyte Balance 17.0 mEq/L High 4.0-15.0 [facility] ([place]) Comment on above: Performed By: #### A DIFF, GFR, MDW, CMP, ANEU, CBC, LIP #### [address] [address] Globulin 4.4 G/dL Normal [facility] ([place]) Comment on above: Performed By: #### A DIFF, GFR, MDW, CMP, ANEU, CBC, LIP #### [address] [address] Glucose [Mass/Vol] 270 mg/dL High 70-105 [facility] ([place]) Comment on above: Performed By: #### A DIFF, GFR, MDW, CMP, ANEU, CBC, LIP #### [address] [address] Potassium [Moles/Vol] 3.4 mmol/L Low 3.5-5.1 [facility] ([place]) Comment on above: Performed By: #### A DIFF, GFR, MDW, CMP, ANEU, CBC, LIP #### [address] [address] Sodium [Moles/Vol] 138 mmol/L Normal 136-145 [facility] ([place] Comment on above: Performed By: #### A DIFF, GFR, MDW, CMP, ANEU, CBC, LIP #### [address] [address] Total Protein 8.3 G/dL High 6.4-8.2 [facility] ([place]) Comment on above: Performed By: #### A DIFF, GFR, MDW, CMP, ANEU, CBC, LIP #### [address] [address] Urea nitrogen [Mass/Vol] 13 mg/dL Normal 7-18 [facility] ([place] Comment on above: Performed By: #### A DIFF, GFR, MDW, CMP, ANEU, CBC, LIP #### [address] [address] [address] ABD/PELVIS W/ IV CONTRAST ONLYon 01-10-2023 [...] 01/10/2023 4:59:31 PM Ordering Provider: ESSIE DOWNS [facility] ([place]) LABORATORYOrdered By: SYSTEM SYSTEM on 01-10-2023 Albumin [...] 01-10-2023 Lipase Level 39 U/L Normal 16-77 [facility] ([place]) Comment on above: Performed By: #### A DIFF, GFR, MDW, CMP, ANEU, CBC, LIP #### [place] [address] PREGUon 01-10-2023 HCG ( test) Ql (U) Negative Normal [facility] ([place] Comment on above: Performed By: #### A DIFF, GFR, MDW, CMP, ANEU, CBC, LIP #### [place] [address] test (u) int Not detected Invalid Interpretation Code [facility] ([place] Comment on above: Performed By: #### A DIFF, GFR, MDW, CMP, ANEU, CBC, LIP #### [place] [address] UAon 01-10-2023 Color (U) Yellow Normal [facility] ([place] Comment on above: Performed By: #### A DIFF, GFR, MDW, CMP, ANEU, CBC, LIP #### [place] [address] Glucose (U) [Mass/Vol] 500 mg/dL Abnormal Negative [facility] ([place] Comment on above: Performed By: #### A DIFF, GFR, MDW, CMP, ANEU, CBC, LIP #### [place] [address] Ketones Ql (U) >=160 Abnormal Negative [facility] ([place] Comment on above: Performed By: #### A DIFF, GFR, MDW, CMP, ANEU, CBC, LIP #### [address] [address] UA Appear Slightly Cloudy Abnormal Clear [facility] ([place] Comment on above: Performed By: #### A DIFF, GFR, MDW, CMP, ANEU, CBC, LIP #### [address] [address] UA Blood Negative Normal Negative [facility] ([place] Comment on above: Performed By: #### A DIFF, GFR, MDW, CMP, ANEU, CBC, LIP #### [address] [address] UA Leuk Est Negative Normal Negative [facility] ([place] Comment on above: Performed By: #### A DIFF, GFR, MDW, CMP, ANEU, CBC, LIP #### [address] [address] UA Nitrite Negative Normal Negative [facility] ([place] Comment on above: Performed By: #### A DIFF, GFR, MDW, CMP, ANEU, CBC, LIP #### [address] [address] UA pH 8.5 Abnormal 5.0 - 8.0 [facility] ([place] Comment on above: Performed By: #### A DIFF, GFR, MDW, CMP, ANEU, CBC, LIP #### [address] [address] UA Protein 100 mg/dL Abnormal Negative [facility] ([place] Comment on above: Performed By: #### A DIFF, GFR, MDW, CMP, ANEU, CBC, LIP #### [address] [address] UA Spec Grav 1.020 Normal 1.015-1.025 [facility] ([place] Comment on above: Performed By: #### A DIFF, GFR, MDW, CMP, ANEU, CBC, LIP #### [address] [address] UA Specimen Type Clean Catch Normal [facility] ([place] Comment on above: Performed By: #### A DIFF, GFR, MDW, CMP, ANEU, CBC, LIP #### [address] [address] [place], [place] [address] UA Urobilinogen 0.2 E.U./dL Normal 0.2-1.0 [facility] ([place] Comment on above: Performed By: #### A DIFF, GFR, MDW, CMP, ANEU, CBC, LIP #### [place] [id number] [place], [place] [address] Urobilinogen (U) [Mass/Vol] Negative Normal Negative [facility] ([place] Comment on above: Performed By: #### A DIFF, GFR, MDW, CMP, ANEU, CBC, LIP #### [address] [address] Absolute lymphocyte countOrd ered By: Carlos Calvo on 01-09-2023 Lymphocytes Auto (Unsp spec) [#/Vol] 2.47 10*3/uL 0.83-4.51 [facility] Basophil percentageOrdered B y: Carlos Calvo on 01-09-2023 Basophil percentage 0 SEEN /hpf 0-5 [facility] Basophil percentage 247 mg/dL 74-106 [facility] Basophil percentage 8.7 g/dL 6.4-8.2 [facility] Basophil percentage 0.60 mg/dL 0.20-1.00 [facility] Basophil percentage 134 mmol/L 136-145 [facility] Basophil percentage 4.0 mmol/L 3.5-5.1 [facility] Basophil percentage 101 mmol/L 98-107 [facility] Basophils (Bld) [#/Vol] 10.7 10*3/uL 4.4-11.0 [facility] Basophils (Bld) [#/Vol] 7.6 10*3/uL 2.0-7.7 [facility] Basophils/100 WBC (Bld) 0.5 % 0-1 [facility] Basophils/100 WBC (Bld) 70.5 % 47-70 [facility] Basophils/100 WBC (Bld) 0.2 % 0-5 [facility] Bilirubin [Mass/Vol] 0.60 mg/dL 0.20-1.00 [facility] Comment on above: For patients on eltr ombopag therapy, use of Dimension [place] TBIL is not recommended. Chloride [Moles/Vol] 101 mmol/L 98-107 [facility] Eosinophils/100 WBC (Bld) 0.2 % 0-5 [facility] Glucose [Mass/Vol] 247 mg/dL 74-106 [facility] Comment on above: Glucose result great er than or equal to 200 mg/dLsuggests DIABETES MELLITUS per A.D.A. criteria. Neutrophils (Bld) [#/Vol] 7.6 10*3/uL 2.0-7.7 [facility] Neutrophils/100 WBC (Bld) 70.5 % 47-70 [facility] Potassium [Moles/Vol] 4.0 mmol/L 3.5-5.1 [facility] Comment on above: Slight Hemolysis, Re sult may be falsely increased. Protein [Mass/Vol] 8.7 g/dL 6.4-8.2 [facility] Sodium [Moles/Vol] 134 mmol/L 136-145 [facility] WBC (Bld) [#/Vol] 10.7 10*3/uL 4.4-11.0 [facility] Bilirubin Test strip Ql (U)O rdered By: Carlos Calvo on 01-09-2023 Bilirubin Ql (U) Negative Negative [facility] Blood erythrocytes count (nu mber/volume)Ordered By: Carlos Calvo on 01-09-2023 RBC (Bld) [#/Vol] 5.01 10*6/uL 4.2-5.4 [facility] Blood hemoglobin measurement (mass/volume)Ordered By: Carlos Calvo on 01-09-2023 Hemoglobin (Bld) [Mass/Vol] 13.0 g/dL 12.0-15.0 [facility] Blood lymphocytes/100 leukoc ytesOrdered By: Carlos Calvo on 01-09-2023 Lymphocytes/100 WBC (Bld) 23.0 % 19-41 [facility] Blood monocytes/100 leukocyt esOrdered By: Carlos Calvo on 01-09-2023 Monocytes/100 WBC (Bld) 4.9 % 0-10 [facility] Blood platelet mean volumeOr dered By: Carlos Calvo on 01-09-2023 Platelet mean volume (Bld) [Entitic vol] 9.5 fL 6.2-12.0 [facility] Determination of erythrocyte mean corpuscular volume (MCV)Ordered By: Carlos Calvo on 01-09-2023 MCV (RBC) [Entitic vol] 79.8 fL 81-99 [facility] Glucose Glucometer (BldC) [M ass/Vol]Ordered By: Deann Guerrero on 01-09-2023 Glucose [Mass/Vol] 254 mg/dL 74-106 [facility] Comment on above: MANAGEMENT OF PATIEN T CARE PER NURSING PROTOCOL Hematocrit Auto (Bld) [Volum e fraction]Ordered By: Carlos Calvo on 01-09-2023 Hematocrit (Bld) [Volume fraction] 40.0 % 37-47 [facility] Ketones Test strip Ql (U)Ord ered By: Carlos Calvo on 01-09-2023 Ketones Ql (U) 50 mg/dl Negative [facility] Laboratory - Chemistry and C hemistry - challengeOrdered By: Carlos Calvo on 01-09-2023 HCG ( test) Ql (U) Negative [facility] Comment on above: Very dilute urine sp ecimens, as indicated by a low specificgravity, may not contain traveling representative levels of hCG. If is still suspected, a first morning urinespecimen should be collected 48 hours later and tested. ALP [Catalytic activity/Vol] 85 U/L 45-117 [facility] ALT [Catalytic activity/Vol] 20 U/L 13-56 [facility] CO2 [Moles/Vol] 21.0 mmol/L 21.0-32.0 [facility] Globulin (S) [Mass/Vol] 5.2 g/dL 2.2-4.2 [facility] Lipase [Catalytic activity/Vol] 38 U/L 13-75 [facility] Comment on above: Please note:LIPASE r evised reference range effective 22. New Lipase methodology. Expected to produce lower values than the previous assay method. NEW Reference Range: 13 - 75 U/L Urea nitrogen/Creatinine [Mass ratio] 7.9 mg/mg 10-20 [facility] Laboratory - Hematology and Cell countsOrdered By: Carlos Calvo on 01-09-2023 Erythrocyte distribution width (RBC) [Entitic vol] 38.3 fL 35.1-43.9 [facility] Erythrocyte distribution width (RBC) [Ratio] 13.4 % 11.6-14.6 [facility] Immature granulocytes/100 WBC (Bld) 0.900 % 0.0-0.9 [facility] Comment on above: IG% - Immature Granu locytes (promyelocytes, myelocytes and metamyelocytes) > 1% indicates that a LEFT SHIFT is Present. MCH (RBC) [Entitic mass] 25.9 pg 27.0-32.0 [facility] Nucleated RBC/100 WBC (Bld) [Ratio] 0 % 0-5 [facility] MCHC Auto (RBC) [Mass/Vol]Or dered By: Carlos Calvo on 01-09-2023 MCHC (RBC) [Mass/Vol] 32.5 g/dL 32-36 [facility] Mucus LM Ql (Urine sed)Order ed By: Carlos Calvo on 01-09-2023 Mucus Ql (Urine sed) 0 SEEN /hpf [facility] Nitrite Test strip Ql (U)Ord ered By: Carlos Calvo on 01-09-2023 Nitrite Ql (U) Negative Negative [facility] No Panel InformationOrdered By: Carlos Calvo on 01-09-2023 Negative [facility] Estimated Creatinine Clearance Calc 67.55 ml/min [facility] Estimated GFR (MDRD) Amer 72 mL/min >60 [facility] Comment on above: GFR Calc Estimated GFR (MDRD) Non-Af Amer 59 mL/min >60 [facility] Comment on above: Non- GFR Calc 25.9 pg 27.0-32.0 [facility] 13.4 % 11.6-14.6 [facility] 38.3 fl 35.1-43.9 [facility] 0.900 % 0.0-0.9 [facility] 0 % 0-5 [facility] 59 mL/min >60 [facility] 72 mL/min >60 [facility] 67.55 ml/min [facility] 7.9 RATIO 10-20 [facility] 5.2 g/dL 2.2-4.2 [facility] 38 U/L 13-75 [facility] 85 U/L 45-117 [facility] 20 U/L 13-56 [facility] 21.0 mmol/L 21.0-32.0 [facility] Platelets bldOrdered By: Analia Calvo on 01-09-2023 Platelets (Bld) [#/Vol] 397 10*3/uL 150-450 [facility] Protein Test strip Ql (U)Ord ered By: Carlos Calvo on 01-09-2023 Protein Ql (U) 15 mg/dl Negative [facility] Serum or plasma albumin hussein urement (mass/volume)Ordered By: Carlos Calvo on 01-09-2023 Albumin [Mass/Vol] 3.5 g/dL 3.2-5.0 [facility] Serum or plasma albumin/glob ulin mass ratioOrdered By: Carlos Calvo on 01-09-2023 Albumin/Globulin [Mass ratio] 0.7 {ratio} 0.9-2.4 [facility] Serum or plasma calcium hussein urement (mass/volume)Ordered By: Carlos Calvo on 01-09-2023 Calcium [Mass/Vol] 9.5 mg/dL 8.5-10.1 [facility] Serum or plasma creatinine m easurement (mass/volume)Ordered By: Carlos Calvo on 01-09-2023 Creatinine [Mass/Vol] 1.14 mg/dL 0.55-1.02 [facility] Comment on above: The validity of the calculated GFR & GFRAA in patients over 70 years has not been determined. Clinical correlation is essential. Serum or plasma urea nitroge n measurement (mass/volume)Ordered By: Carlos Calvo on 01-09-2023 Urea nitrogen [Mass/Vol] 9 mg/dL 7-18 [facility] Squamous epithelial cells de tection in urine sediment by light microscopyOrdered By: Carlos Calvo on 01-09-2023 Epithelial cells.squamous LM Ql (Urine sed) 5-10 SEEN /hpf 5-10 [facility] Thin prep Papanicolaou smear with manual screeningOrdered By: Carlos Calvo on 01-09-2023 Thin prep Papanicolaou smear with manual screening 19 U/L 15-37 [facility] Comment on above: Slight Hemolysis, Re sult may be falsely increased. Thin prep Papanicolaou smear with manual screening 12 5-15 [facility] Urine blood detectionOrdered By: Carlos Calvo on 01-09-2023 RBC Ql (U) 10 /ul Negative [facility] RBC Ql (U) 0 SEEN /hpf 0-5 [facility] Urine clarityOrdered By: Analia Calvo on 01-09-2023 Clarity (U) Clear Clear [facility] Urine color determinationOrd ered By: Carlos Calvo on 01-09-2023 Color (U) Yellow Yellow [facility] Urine glucose detectionOrder ed By: Carlos Calvo on 01-09-2023 Glucose Ql (U) 1000 mg/dl Normal [facility] Urine leukocyte esterase det ection by dipstickOrdered By: Carlos Calvo on 01-09-2023 Leukocyte esterase Test strip Ql (U) 25 /ul Negative [facility] Urine pHOrdered By: Carlos mclain on 01-09-2023 pH (U) 8.0 [pH] 5.0 - 8.0 [facility] Urine sediment bacteria coun t by microscopy (number/high power field)Ordered By: Carlos Calvo on 01-09-2023 Bacteria LM.HPF (Urine sed) [#/Area] 0 /[HPF] None Seen [facility] Urine specific gravity measu rementOrdered By: Carlos Calvo on 01-09-2023 Specific gravity (U) [Rel density] 1.015 1.002-1.030 [facility] Urobilinogen Auto test strip Ql (U)Ordered By: Carlos Calvo on 01-09-2023 Urobilinogen Ql (U) Normal mg/dl Normal [facility] Absolute lymphocyte countOrd ered By: Poli Barfield on 01-07-2023 Lymphocytes Auto (Unsp spec) [#/Vol] 3.48 10*3/uL 0.83-4.51 [facility] Basophil percentageOrdered B y: Poli Barfield on 01-07-2023 Basophil percentage 202 mg/dL 74-106 [facility] Basophil percentage 135 mmol/L 136-145 [facility] Basophil percentage 3.8 mmol/L 3.5-5.1 [facility] Basophil percentage 102 mmol/L 98-107 [facility] Basophils (Bld) [#/Vol] 9.0 10*3/uL 4.4-11.0 [facility] Basophils (Bld) [#/Vol] 4.8 10*3/uL 2.0-7.7 [facility] Basophils/100 WBC (Bld) 0.4 % 0-1 [facility] Basophils/100 WBC (Bld) 53.2 % 47-70 [facility] Basophils/100 WBC (Bld) 1.0 % 0-5 [facility] Chloride [Moles/Vol] 102 mmol/L 98-107 [facility] Eosinophils/100 WBC (Bld) 1.0 % 0-5 [facility] Glucose [Mass/Vol] 202 mg/dL 74-106 [facility] Comment on above: Glucose result great er than or equal to 200 mg/dLsuggests DIABETES MELLITUS per A.D.A. criteria. Neutrophils (Bld) [#/Vol] 4.8 10*3/uL 2.0-7.7 [facility] Neutrophils/100 WBC (Bld) 53.2 % 47-70 [facility] Potassium [Moles/Vol] 3.8 mmol/L 3.5-5.1 [facility] Sodium [Moles/Vol] 135 mmol/L 136-145 [facility] WBC (Bld) [#/Vol] 9.0 10*3/uL 4.4-11.0 [facility] Blood erythrocytes count (nu mber/volume)Ordered By: Poli Barfield on 01-07-2023 RBC (Bld) [#/Vol] 4.92 10*6/uL 4.2-5.4 [facility] Blood hemoglobin measurement (mass/volume)Ordered By: Poli Barfield on 01-07-2023 Hemoglobin (Bld) [Mass/Vol] 12.7 g/dL 12.0-15.0 [facility] Blood lymphocytes/100 leukoc ytesOrdered By: Poli Barfield on 01-07-2023 Lymphocytes/100 WBC (Bld) 38.5 % 19-41 [facility] Blood monocytes/100 leukocyt esOrdered By: Poli Barfield on 01-07-2023 Monocytes/100 WBC (Bld) 5.9 % 0-10 [facility] Blood platelet mean volumeOr dered By: Poli Barfield on 01-07-2023 Platelet mean volume (Bld) [Entitic vol] 9.1 fL 6.2-12.0 [facility] Determination of erythrocyte mean corpuscular volume (MCV)Ordered By: Poli Barfield on 01-07-2023 MCV (RBC) [Entitic vol] 79.7 fL 81-99 [facility] Glucose Glucometer (BldC) [M ass/Vol]Ordered By: Poli Barfield on 01-07-2023 Glucose [Mass/Vol] 206 mg/dL 74-106 [facility] Comment on above: MANAGEMENT OF PATIEN T CARE PER NURSING PROTOCOL Hematocrit Auto (Bld) [Volum e fraction]Ordered By: Poli Barfield on 01-07-2023 Hematocrit (Bld) [Volume fraction] 39.2 % 37-47 [facility] Laboratory - Chemistry and C hemistry - challengeOrdered By: Poli Barfield on 01-07-2023 HCG ( test) Ql (U) Negative [facility] Comment on above: Very dilute urine sp ecimens, as indicated by a low specificgravity, may not contain traveling representative levels of hCG. If is still suspected, a first morning urinespecimen should be collected 48 hours later and tested. CO2 [Moles/Vol] 24.0 mmol/L 21.0-32.0 [facility] Urea nitrogen/Creatinine [Mass ratio] 8.9 mg/mg 10-20 [facility] Laboratory - Drug toxicology Ordered By: Poli Barfield on 01-07-2023 Amphetamines Ql (U) Negative <1000 ng/mL [facility] Benzodiazepines Ql (U) Negative < 200 ng/mL [facility] Cannabinoids Screen Ql (U) Positive < 50 ng/mL [facility] Cocaine Ql (U) Negative < 300 ng/mL [facility] Opiates Ql (U) Negative < 300 ng/mL [facility] Laboratory - Hematology and Cell countsOrdered By: Poli Barfield on 01-07-2023 Erythrocyte distribution width (RBC) [Entitic vol] 38.9 fL 35.1-43.9 [facility] Erythrocyte distribution width (RBC) [Ratio] 13.5 % 11.6-14.6 [facility] Immature granulocytes/100 WBC (Bld) 1.000 % 0.0-0.9 [facility] Comment on above: IG% - Immature Granu locytes (promyelocytes, myelocytes and metamyelocytes) > 1% indicates that a LEFT SHIFT is Present. MCH (RBC) [Entitic mass] 25.8 pg 27.0-32.0 [facility] Nucleated RBC/100 WBC (Bld) [Ratio] 0 % 0-5 [facility] MCHC Auto (RBC) [Mass/Vol]Or dered By: Poli Barfield on 01-07-2023 MCHC (RBC) [Mass/Vol] 32.4 g/dL 32-36 [facility] No Panel InformationOrdered By: Poli Barfield on 01-07-2023 MDMA (Ecstasy) Screen Positive < 500 ng/mL [facility] Urine Barbiturates Screen Negative < 200 ng/mL [facility] Urine Drug Screen Comment [facility] Comment on above: CONFIRMATORY TESTING FOR ALL [...] TESTING MUST BE ORDERED SEPARATELY. USE TESTMNEMONIC: [facility] Urine Methadone Screen Negative < 300 ng/mL [facility] Negative < 300 ng/mL [facility] Positive < 50 ng/mL [facility] Estimated Creatinine Clearance Calc 68.76 ml/min [facility] Estimated GFR (MDRD) Amer 73 mL/min >60 [facility] Comment on above: GFR Calc Estimated GFR (MDRD) Non-Af Amer 60 mL/min >60 [facility] Comment on above: Non- GFR Calc 25.8 pg 27.0-32.0 [facility] 13.5 % 11.6-14.6 [facility] 38.9 fl 35.1-43.9 [facility] 1.000 % 0.0-0.9 [facility] 0 % 0-5 [facility] 60 mL/min >60 [facility] 73 mL/min >60 [facility] 68.76 ml/min [facility] 8.9 RATIO 10-20 [facility] 24.0 mmol/L 21.0-32.0 [facility] Platelets bldOrdered By: Devon Barfield on 01-07-2023 Platelets (Bld) [#/Vol] 380 10*3/uL 150-450 [facility] Serum or plasma calcium hussein urement (mass/volume)Ordered By: Poli Barfield on 01-07-2023 Calcium [Mass/Vol] 9.0 mg/dL 8.5-10.1 [facility] Serum or plasma creatinine m easurement (mass/volume)Ordered By: Poli Barfield on 01-07-2023 Creatinine [Mass/Vol] 1.12 mg/dL 0.55-1.02 [facility] Comment on above: The validity of the calculated GFR & GFRAA in patients over 70 years has not been determined. Clinical correlation is essential. Serum or plasma urea nitroge n measurement (mass/volume)Ordered By: Poli Barfield on 01-07-2023 Urea nitrogen [Mass/Vol] 10 mg/dL 7-18 [facility] Thin prep Papanicolaou smear with manual screeningOrdered By: Poli Barfield on 01-07-2023 Thin prep Papanicolaou smear with manual screening 9 5-15 [facility] Urine phencyclidine (PCP) de tectionOrdered By: Poli Barfield on 01-07-2023 Phencyclidine Ql (U) Negative < 25 ng/mL [facility] Basophil percentageOrdered B y: Amy Solorzano on 11-25-2022 Basophil percentage 493 mg/dL 74-106 [facility] Basophil percentage 8.0 g/dL 6.4-8.2 [facility] Basophil percentage 0.20 mg/dL 0.20-1.00 [facility] Basophil percentage 130 mmol/L 136-145 [facility] Basophil percentage 4.3 mmol/L 3.5-5.1 [facility] Basophil percentage 99 mmol/L 98-107 [facility] Basophils (Bld) [#/Vol] 8.2 10*3/uL 4.4-11.0 [facility] Bilirubin [Mass/Vol] 0.20 mg/dL 0.20-1.00 [facility] Comment on above: For patients on eltr ombopag therapy, use of Dimension [place] TBIL is not recommended. Chloride [Moles/Vol] 99 mmol/L 98-107 [facility] Glucose [Mass/Vol] 493 mg/dL 74-106 [facility] Comment on above: Critical Result(s) C alled at: 11:44:33 11/25/2022 by: NICOLE PATE TO GHISLAINE MCQUEEN. Results read back by same.Glucose result greater than or equal to 200 mg/dLsuggests DIABETES MELLITUS per A.D.A. criteria. Potassium [Moles/Vol] 4.3 mmol/L 3.5-5.1 [facility] Protein [Mass/Vol] 8.0 g/dL 6.4-8.2 [facility] Sodium [Moles/Vol] 130 mmol/L 136-145 [facility] WBC (Bld) [#/Vol] 8.2 10*3/uL 4.4-11.0 [facility] Blood erythrocytes count (nu mber/volume)Ordered By: Amy Solorzano on 11-25-2022 RBC (Bld) [#/Vol] 4.74 10*6/uL 4.2-5.4 [facility] Blood hemoglobin measurement (mass/volume)Ordered By: Amy Solorzano on 11-25-2022 Hemoglobin (Bld) [Mass/Vol] 12.5 g/dL 12.0-15.0 [facility] Blood platelet mean volumeOr dered By: Amy Solorzano on 11-25-2022 Platelet mean volume (Bld) [Entitic vol] 9.5 fL 6.2-12.0 [facility] Determination of erythrocyte mean corpuscular volume (MCV)Ordered By: Amy Solorzano on 11-25-2022 MCV (RBC) [Entitic vol] 80.2 fL 81-99 [facility] Hematocrit Auto (Bld) [Volum e fraction]Ordered By: Amy Solorzano on 11-25-2022 Hematocrit (Bld) [Volume fraction] 38.0 % 37-47 [facility] Laboratory - Chemistry and C hemistry - challengeOrdered By: Amy Solorzano on 11-25-2022 ALP [Catalytic activity/Vol] 110 U/L [facility] ALT [Catalytic activity/Vol] 26 U/L [facility] CO2 [Moles/Vol] 19.0 mmol/L 21.0-32.0 [facility] Globulin (S) [Mass/Vol] 5.0 g/dL 2.2-4.2 [facility] Urea nitrogen/Creatinine [Mass ratio] 11.3 mg/mg 04-30 [facility] Laboratory - Hematology and Cell countsOrdered By: Amy Solorzano on 11-25-2022 Erythrocyte distribution width (RBC) [Entitic vol] 40.1 fL 35.1-43.9 [facility] Erythrocyte distribution width (RBC) [Ratio] 13.9 % 11.6-14.6 [facility] MCH (RBC) [Entitic mass] 26.4 pg 27.0-32.0 [facility] MCHC Auto (RBC) [Mass/Vol]Or dered By: Amy Solorzano on 11-25-2022 MCHC (RBC) [Mass/Vol] 32.9 g/dL 32-36 [facility] No Panel InformationOrdered By: Amy Solorzano on 11-25-2022 Estimated GFR (MDRD) Amer 71 mL/min >60 [facility] Comment on above: GFR Calc Estimated GFR (MDRD) Non-Af Amer 59 mL/min >60 [facility] Comment on above: Non- GFR Calc 26.4 pg 27.0-32.0 [facility] 13.9 % 11.6-14.6 [facility] 40.1 fl 35.1-43.9 [facility] [facility] 59 mL/min >60 [facility] 71 mL/min >60 [facility] 11.3 RATIO 04-30 [facility] 5.0 g/dL 2.2-4.2 [facility] 110 U/L 45-117 [facility] 26 U/L [facility] 19.0 mmol/L 21.0-32.0 [facility] Platelets bldOrdered By: Glendy Solorzano on 11-25-2022 Platelets (Bld) [#/Vol] 375 10*3/uL 150-450 [facility] Serum or plasma albumin hussein urement (mass/volume)Ordered By: Amy Solorzano on 11-25-2022 Albumin [Mass/Vol] 3.0 g/dL 3.2-5.0 [facility] Serum or plasma albumin/glob ulin mass ratioOrdered By: Amy Solorzano on 11-25-2022 Albumin/Globulin [Mass ratio] 0.6 {ratio} 0.9-2.4 [facility] Serum or plasma calcium hussein urement (mass/volume)Ordered By: Amy Solorzano on 11-25-2022 Calcium [Mass/Vol] 8.2 mg/dL 8.5-10.1 [facility] Serum or plasma creatinine m easurement (mass/volume)Ordered By: Amy Solorzano on 11-25-2022 Creatinine [Mass/Vol] 1.15 mg/dL 0.55-1.02 [facility] Comment on above: The validity of the calculated GFR & GFRAA in patients over 70 years has not been determined. Clinical correlation is essential. Serum or plasma urea nitroge n measurement (mass/volume)Ordered By: Amy Solorzano on 11-25-2022 Urea nitrogen [Mass/Vol] 13 mg/dL 7-18 [facility] Thin prep Papanicolaou smear with manual screeningOrdered By: Amy Solorzano on 11-25-2022 Thin prep Papanicolaou smear with manual screening 15 U/L 15-37 [facility] Thin prep Papanicolaou smear with manual screening 12 5-15 [facility] Thin prep Papanicolaou smear with manual screening 6.1 mg/L NO RANGE EST. [facility] Whole blood hemoglobin A1c/t otal hemoglobin ratio (mass fraction)Ordered By: Amy Solorzano on 11-25-2022 HbA1c (Bld) [Mass fraction] 12.1 % 3.8-5.6 [facility] Comment on above: Normal < 5.7 % Predi abetic 5.7 - 6.4 % Diabetic >or= 6.5 % Please note range changes. Absolute lymphocyte countOrd ered By: Dr. Villatoro on 08-15-2022 Lymphocytes Auto (Unsp spec) [#/Vol] 2.49 10*3/uL 0.83-4.51 [facility] Basophil percentageOrdered B y: Dr. Villatoro on 08-15-2022 Basophils/100 WBC (Bld) 0.4 % 0-1 [facility] Chloride [Moles/Vol] 104 mmol/L 98-107 [facility] Eosinophils/100 WBC (Bld) 0.9 % 0-5 [facility] Glucose [Mass/Vol] 215 mg/dL 74-106 [facility] Comment on above: Glucose result great er than or equal to 200 mg/dLsuggests DIABETES MELLITUS per A.D.A. criteria. Neutrophils (Bld) [#/Vol] 5.7 10*3/uL 2.0-7.7 [facility] Neutrophils/100 WBC (Bld) 62.3 % 47-70 [facility] Potassium [Moles/Vol] 4.0 mmol/L 3.5-5.1 [facility] Sodium [Moles/Vol] 137 mmol/L 136-145 [facility] WBC (Bld) [#/Vol] 9.2 10*3/uL 4.4-11.0 [facility] Blood erythrocytes count (nu mber/volume)Ordered By: Dr. Villatoro on 08-15-2022 RBC (Bld) [#/Vol] 3.60 10*6/uL 4.2-5.4 [facility] Blood hemoglobin measurement (mass/volume)Ordered By: Dr. Villatoro on 08-15-2022 Hemoglobin (Bld) [Mass/Vol] 9.2 g/dL 12.0-15.0 [facility] Blood lymphocytes/100 leukoc ytesOrdered By: Dr. Villatoro on 08-15-2022 Lymphocytes/100 WBC (Bld) 27.1 % 19-41 [facility] Blood monocytes/100 leukocyt esOrdered By: Dr. Villatoro on 08-15-2022 Monocytes/100 WBC (Bld) 8.2 % 0-10 [facility] Blood platelet mean volumeOr dered By: Dr. Villatoro on 08-15-2022 Platelet mean volume (Bld) [Entitic vol] 9.0 fL 6.2-12.0 [facility] Determination of erythrocyte mean corpuscular volume (MCV)Ordered By: Dr. Villatoro on 08-15-2022 MCV (RBC) [Entitic vol] 81.4 fL 81-99 [facility] Glucose Glucometer (BldC) [M ass/Vol]Ordered By: Dr. Villatoro on 08-15-2022 Glucose [Mass/Vol] 290 mg/dL 74-106 [facility] Comment on above: MANAGEMENT OF PATIEN T CARE PER NURSING PROTOCOL Hematocrit Auto (Bld) [Volum e fraction]Ordered By: Dr. Villatoro on 08-15-2022 Hematocrit (Bld) [Volume fraction] 29.3 % 37-47 [facility] Laboratory - Chemistry and C hemistry - challengeOrdered By: Dr. Villatoro on 08-15-2022 CO2 [Moles/Vol] 24.0 mmol/L 21.0-32.0 [facility] Urea nitrogen/Creatinine [Mass ratio] 7.1 mg/mg 10-20 [facility] Laboratory - Hematology and Cell countsOrdered By: Dr. Villatoro on 08-15-2022 Erythrocyte distribution width (RBC) [Entitic vol] 38.4 fL 35.1-43.9 [facility] Erythrocyte distribution width (RBC) [Ratio] 12.9 % 11.6-14.6 [facility] Immature granulocytes/100 WBC (Bld) 1.100 % 0.0-0.9 [facility] Comment on above: IG% - Immature Granu locytes (promyelocytes, myelocytes and metamyelocytes) > 1% indicates that a LEFT SHIFT is Present. MCH (RBC) [Entitic mass] 25.6 pg 27.0-32.0 [facility] Nucleated RBC/100 WBC (Bld) [Ratio] 0 % 0-5 [facility] MCHC Auto (RBC) [Mass/Vol]Or dered By: Dr. Villatoro on 08-15-2022 MCHC (RBC) [Mass/Vol] 31.4 g/dL 32-36 [facility] No Panel InformationOrdered By: Dr. Villatoro on 08-15-2022 Estimated Creatinine Clearance Calc 110.01 ml/min [facility] Estimated GFR (MDRD) Amer 125 mL/min >60 [facility] Comment on above: GFR Calc Estimated GFR (MDRD) Non-Af Amer 104 mL/min >60 [facility] Comment on above: Non- GFR Calc Platelets bldOrdered By: Dr. Villatoro on 08-15-2022 Platelets (Bld) [#/Vol] 458 10*3/uL 150-450 [facility] Serum or plasma C reactive p rotein measurement (mass/volume)Ordered By: Dr. Villatoro on 08-15-2022 CRP [Mass/Vol] 119.00 mg/L 0.0-3.0 [facility] Comment on above: C-Reactive Protein ( CRP) provides useful information for thediagnosis, therapy and monitoring of inflammatory processesand associated diseases. For the evaluation of Relative Riskfor Cardiovascular Disease, a High Sensitivity CRP (HSCRP)should be ordered. Serum or plasma calcium hussein urement (mass/volume)Ordered By: Dr. Villatoro on 08-15-2022 Calcium [Mass/Vol] 8.4 mg/dL 8.5-10.1 [facility] Serum or plasma creatinine m easurement (mass/volume)Ordered By: Dr. Villatoro on 08-15-2022 Creatinine [Mass/Vol] 0.70 mg/dL 0.55-1.02 [facility] Comment on above: The validity of the calculated GFR & GFRAA in patients over 70 years has not been determined. Clinical correlation is essential. Serum or plasma urea nitroge n measurement (mass/volume)Ordered By: Dr. Villatoro on 08-15-2022 Urea nitrogen [Mass/Vol] 5 mg/dL 7-18 [facility] Thin prep Papanicolaou smear with manual screeningOrdered By: Dr. Villatoro on 08-15-2022 Thin prep Papanicolaou smear with manual screening 9 5-15 [facility] Culture, urineOrdered By: Dr Marine Christiansen on 08-14-2022 Bacteria identified Cx Nom (U) Escherichia coli [facility] Basophil percentageOrdered B y: Dr. Urbina on 08-13-2022 Bilirubin [Mass/Vol] 0.50 mg/dL 0.20-1.00 [facility] Comment on above: For patients on eltr ombopag therapy, use of Dimension [place] TBIL is not recommended. Protein [Mass/Vol] 8.1 g/dL 6.4-8.2 [facility] Erythrocyte sedimentation ra teOrdered By: Dr. Villatoro on 08-13-2022 ESR (Bld) [Velocity] 43 mm/h 0-30 [facility] Laboratory - Chemistry and C hemistry - challengeOrdered By: Dr. Urbina on 08-13-2022 ALP [Catalytic activity/Vol] 99 U/L 45-117 [facility] ALT [Catalytic activity/Vol] 11 U/L 13-56 [facility] Globulin (S) [Mass/Vol] 5.6 g/dL 2.2-4.2 [facility] Magnesium [Mass/Vol] 2.2 mg/dL 1.6-2.6 [facility] Serum or plasma albumin hussein urement (mass/volume)Ordered By: Dr. Urbina on 08-13-2022 Albumin [Mass/Vol] 2.5 g/dL 3.2-5.0 [facility] Serum or plasma albumin/glob ulin mass ratioOrdered By: Dr. Urbina on 08-13-2022 Albumin/Globulin [Mass ratio] 0.4 {ratio} 0.9-2.4 [facility] Thin prep Papanicolaou smear with manual screeningOrdered By: Dr. Urbina on 08-13-2022 Thin prep Papanicolaou smear with manual screening 8 U/L 15-37 [facility] Absolute lymphocyte countOrd ered By: Dr. Christiansen on 08-12-2022 Lymphocytes Auto (Unsp spec) [#/Vol] 3.81 10*3/uL 0.83-4.51 [facility] Basophil percentageOrdered B y: Dr. Christiansen on 08-12-2022 Basophil percentage 10-25 SEEN /hpf 0-5 [facility] Basophils/100 WBC (Bld) 0.3 % 0-1 [facility] Bilirubin [Mass/Vol] 0.50 mg/dL 0.20-1.00 [facility] Comment on above: For patients on eltr ombopag therapy, use of Dimension [place] TBIL is not recommended. Chloride [Moles/Vol] 95 mmol/L 98-107 [facility] Eosinophils/100 WBC (Bld) 0.1 % 0-5 [facility] Glucose [Mass/Vol] 230 mg/dL 74-106 [facility] Comment on above: Glucose result great er than or equal to 200 mg/dLsuggests DIABETES MELLITUS per A.D.A. criteria. Neutrophils (Bld) [#/Vol] 13.2 10*3/uL 2.0-7.7 [facility] Neutrophils/100 WBC (Bld) 69.8 % 47-70 [facility] Potassium [Moles/Vol] 3.9 mmol/L 3.5-5.1 [facility] Comment on above: Slight Hemolysis, Re sult may be falsely increased. Protein [Mass/Vol] 9.2 g/dL 6.4-8.2 [facility] Sodium [Moles/Vol] 130 mmol/L 136-145 [facility] WBC (Bld) [#/Vol] 18.9 10*3/uL 4.4-11.0 [facility] Bilirubin Test strip Ql (U)O rdered By: Dr. Christiansen on 08-12-2022 Bilirubin Ql (U) Negative Negative [facility] Blood erythrocytes count (nu mber/volume)Ordered By: Dr. Christiansen on 08-12-2022 RBC (Bld) [#/Vol] 4.35 10*6/uL 4.2-5.4 [facility] Blood hemoglobin measurement (mass/volume)Ordered By: Dr. Christiansen on 08-12-2022 Hemoglobin (Bld) [Mass/Vol] 11.4 g/dL 12.0-15.0 [facility] Blood lymphocytes/100 leukoc ytesOrdered By: Dr. Christiansen on 08-12-2022 Lymphocytes/100 WBC (Bld) 20.1 % 19-41 [facility] Blood manual differential co mment interpretation (narrative result)Ordered By: Dr. Christiansen on 08-12-2022 Manual differential comment Franky (Bld) [Interp] SCANNED [facility] Comment on above: MONOCYTOSIS NOTED Blood monocytes/100 leukocyt esOrdered By: Dr. Christiansen on 08-12-2022 Monocytes/100 WBC (Bld) 8.7 % 0-10 [facility] Blood platelet mean volumeOr dered By: Dr. Christiansen on 08-12-2022 Platelet mean volume (Bld) [Entitic vol] 9.3 fL 6.2-12.0 [facility] Determination of erythrocyte mean corpuscular volume (MCV)Ordered By: Dr. Christiansen on 08-12-2022 MCV (RBC) [Entitic vol] 78.2 fL 81-99 [facility] Glucose Glucometer (BldC) [M ass/Vol]Ordered By: Dr. Urbina on 08-12-2022 Glucose [Mass/Vol] 212 mg/dL 74-106 [facility] Comment on above: MANAGEMENT OF PATIEN T CARE PER NURSING PROTOCOL Hematocrit Auto (Bld) [Volum e fraction]Ordered By: Dr. Chrisitansen on 08-12-2022 Hematocrit (Bld) [Volume fraction] 34.0 % 37-47 [facility] Ketones Test strip Ql (U)Ord ered By: Dr. Christiansen on 08-12-2022 Ketones Ql (U) 15 mg/dl Negative [facility] Laboratory - Chemistry and C hemistry - challengeOrdered By: Dr. Christiansen on 08-12-2022 ALP [Catalytic activity/Vol] 136 U/L 45-117 [facility] ALT [Catalytic activity/Vol] 13 U/L 13-56 [facility] CO2 [Moles/Vol] 23.0 mmol/L 21.0-32.0 [facility] Globulin (S) [Mass/Vol] 6.3 g/dL 2.2-4.2 [facility] Magnesium [Mass/Vol] 1.6 mg/dL 1.6-2.6 [facility] Comment on above: Slight Hemolysis, Re sult may be falsely increased. Urea nitrogen/Creatinine [Mass ratio] 7.2 mg/mg 10-20 [facility] Laboratory - Hematology and Cell countsOrdered By: Dr. Christiansen on 08-12-2022 Erythrocyte distribution width (RBC) [Entitic vol] 36.9 fL 35.1-43.9 [facility] Erythrocyte distribution width (RBC) [Ratio] 12.9 % 11.6-14.6 [facility] Immature granulocytes/100 WBC (Bld) 1.000 % 0.0-0.9 [facility] Comment on above: IG% - Immature Granu locytes (promyelocytes, myelocytes and metamyelocytes) > 1% indicates that a LEFT SHIFT is Present. MCH (RBC) [Entitic mass] 26.2 pg 27.0-32.0 [facility] Nucleated RBC/100 WBC (Bld) [Ratio] 0 % 0-5 [facility] MCHC Auto (RBC) [Mass/Vol]Or dered By: Dr. Christiansen on 08-12-2022 MCHC (RBC) [Mass/Vol] 33.5 g/dL 32-36 [facility] Mucus LM Ql (Urine sed)Order ed By: Dr. Christiansen on 08-12-2022 Mucus Ql (Urine sed) 0 SEEN /hpf [facility] Nitrite Test strip Ql (U)Ord ered By: Dr. Christiansen on 08-12-2022 Nitrite Ql (U) Negative Negative [facility] No Panel InformationOrdered By: Dr. Christiansen on 08-12-2022 Estimated Creatinine Clearance Calc 69.38 ml/min [facility] Estimated GFR (MDRD) Amer 74 mL/min >60 [facility] Comment on above: GFR Calc Estimated GFR (MDRD) Non-Af Amer 61 mL/min >60 [facility] Comment on above: Non- GFR Calc Troponin I High Sensitivity 6 pg/mL 3.0-54.0 [facility] Comment on above: Please Note: New Catherine t Units and Gender Specific Reference Ranges. For more information see Policy Stat Procedure [place] High Sensitivity Troponin (TNIH) and attachments. Platelets bldOrdered By: Dr. Christiansen on 08-12-2022 Platelets (Bld) [#/Vol] 453 10*3/uL 150-450 [facility] Protein Test strip Ql (U)Ord ered By: Dr. Christiansen on 08-12-2022 Protein Ql (U) 100 mg/dl Negative [facility] Review by pathologistOrdered By: Dr. Christiansen on 08-12-2022 Pathologist review Franky (Unsp spec) [Interp] Zahraa waite [facility] Pathologist review Franky (Unsp spec) [Interp] Reviewed [facility] Comment on above: Previous reported re sult: Zahraa waite Edited by: RGOOD on 08/14/22:0949Neutrophilic leukocytosis.Microcytic RBCs.Clinical correlation suggested.Franki Glez D.O. 08/14/22 AMENDED REPORT 08/14/22 0949 PATH REV previously reported as: May foll Serum or plasma acetone hussein urement (mass/volume)Ordered By: Dr. Christiansen on 08-12-2022 Acetone [Mass/Vol] Negative NEG [facility] Serum or plasma albumin hussein urement (mass/volume)Ordered By: Dr. Christiansen on 08-12-2022 Albumin [Mass/Vol] 2.9 g/dL 3.2-5.0 [facility] Serum or plasma albumin/glob ulin mass ratioOrdered By: Dr. Christiansen on 08-12-2022 Albumin/Globulin [Mass ratio] 0.5 {ratio} 0.9-2.4 [facility] Serum or plasma calcium hussein urement (mass/volume)Ordered By: Dr. Christiansen on 08-12-2022 Calcium [Mass/Vol] 9.6 mg/dL 8.5-10.1 [facility] Serum or plasma creatinine m easurement (mass/volume)Ordered By: Dr. Christiansen on 08-12-2022 Creatinine [Mass/Vol] 1.11 mg/dL 0.55-1.02 [facility] Comment on above: The validity of the calculated GFR & GFRAA in patients over 70 years has not been determined. Clinical correlation is essential. Serum or plasma urea nitroge n measurement (mass/volume)Ordered By: Dr. Christiansen on 08-12-2022 Urea nitrogen [Mass/Vol] 8 mg/dL 7-18 [facility] Squamous epithelial cells de tection in urine sediment by light microscopyOrdered By: Dr. Christiansen on 08-12-2022 Epithelial cells.squamous LM Ql (Urine sed) 0-5 SEEN /hpf 5-10 [facility] Thin prep Papanicolaou smear with manual screeningOrdered By: Dr. Christiansen on 08-12-2022 Thin prep Papanicolaou smear with manual screening 20 U/L 15-37 [facility] Comment on above: Slight Hemolysis, Re sult may be falsely increased. Thin prep Papanicolaou smear with manual screening 12 5-15 [facility] Urine blood detectionOrdered By: Dr. Christiansen on 08-12-2022 RBC Ql (U) 150 /ul Negative [facility] RBC Ql (U) 0 SEEN /hpf 0-5 [facility] Urine clarityOrdered By: Dr. Christiansen on 08-12-2022 Clarity (U) Clear Clear [facility] Urine color determinationOrd ered By: Dr. Christiansen on 08-12-2022 Color (U) Yellow Yellow [facility] Urine glucose detectionOrder ed By: Dr. Christiansen on 08-12-2022 Glucose Ql (U) 50 mg/dl Normal [facility] Urine leukocyte esterase det ection by dipstickOrdered By: Dr. Christiansen on 08-12-2022 Leukocyte esterase Test strip Ql (U) 100 /ul Negative [facility] Urine pHOrdered By: Dr. Ethan arriola on 08-12-2022 pH (U) 6.0 [pH] 5.0 - 8.0 [facility] Urine sediment bacteria coun t by microscopy (number/high power field)Ordered By: Dr. Christiansen on 08-12-2022 Bacteria LM.HPF (Urine sed) [#/Area] 0 /[HPF] None Seen [facility] Urine specific gravity measu rementOrdered By: Dr. Christiansen on 08-12-2022 Specific gravity (U) [Rel density] 1.010 1.002-1.030 [facility] Urobilinogen Auto test strip Ql (U)Ordered By: Dr. Christiansen on 08-12-2022 Urobilinogen Ql (U) Normal mg/dl Normal [facility] Acid fast bacilli (AFB) cult ureOrdered By: Dr. Matias on 08-09-2022 Mycobacterium sp identified Org specific cx Nom (Unsp spec) [facility] Thin prep Papanicolaou smear with manual screeningOrdered By: Dr. Matias on 08-09-2022 Thin prep Papanicolaou smear with manual screening [facility] Absolute lymphocyte countOrd ered By: Dr. Rao on 06-29-2022 Lymphocytes Auto (Unsp spec) [#/Vol] 2.81 10*3/uL 0.83-4.51 [facility] Basophil percentageOrdered B y: Dr. Rao on 06-29-2022 Basophils/100 WBC (Bld) 0.7 % 0-1 [facility] Chloride [Moles/Vol] 105 mmol/L 98-107 [facility] Eosinophils/100 WBC (Bld) 1.3 % 0-5 [facility] Glucose [Mass/Vol] 192 mg/dL 74-106 [facility] Comment on above: Fasting Glucose resu lt greater than or equal to 126 mg/dL suggests DIABETES MELLITUS per A.D.A. criteria. Neutrophils (Bld) [#/Vol] 4.2 10*3/uL 2.0-7.7 [facility] Neutrophils/100 WBC (Bld) 51.1 % 47-70 [facility] Potassium [Moles/Vol] 3.9 mmol/L 3.5-5.1 [facility] Sodium [Moles/Vol] 136 mmol/L 136-145 [facility] WBC (Bld) [#/Vol] 8.2 10*3/uL 4.4-11.0 [facility] Blood erythrocytes count (nu mber/volume)Ordered By: Dr. Rao on 06-29-2022 RBC (Bld) [#/Vol] 4.46 10*6/uL 4.2-5.4 [facility] Blood hemoglobin measurement (mass/volume)Ordered By: Dr. Rao on 06-29-2022 Hemoglobin (Bld) [Mass/Vol] 11.7 g/dL 12.0-15.0 [facility] Blood lymphocytes/100 leukoc ytesOrdered By: Dr. Rao on 06-29-2022 Lymphocytes/100 WBC (Bld) 34.3 % 19-41 [facility] Blood monocytes/100 leukocyt esOrdered By: Dr. Rao on 06-29-2022 Monocytes/100 WBC (Bld) 9.9 % 0-10 [facility] Blood platelet mean volumeOr dered By: Dr. Rao on 06-29-2022 Platelet mean volume (Bld) [Entitic vol] 9.1 fL 6.2-12.0 [facility] Determination of erythrocyte mean corpuscular volume (MCV)Ordered By: Dr. Rao on 06-29-2022 MCV (RBC) [Entitic vol] 81.8 fL 81-99 [facility] Glucose Glucometer (BldC) [M ass/Vol]Ordered By: Dr. Lr on 06-29-2022 Glucose [Mass/Vol] 251 mg/dL 74-106 [facility] Comment on above: MANAGEMENT OF PATIEN T CARE PER NURSING PROTOCOL Hematocrit Auto (Bld) [Volum e fraction]Ordered By: Dr. Rao on 06-29-2022 Hematocrit (Bld) [Volume fraction] 36.5 % 37-47 [facility] Laboratory - Chemistry and C hemistry - challengeOrdered By: Dr. Rao on 06-29-2022 CO2 [Moles/Vol] 24.0 mmol/L 21.0-32.0 [facility] Urea nitrogen/Creatinine [Mass ratio] 18.4 mg/mg 10-20 [facility] Laboratory - Hematology and Cell countsOrdered By: Dr. Rao on 06-29-2022 Erythrocyte distribution width (RBC) [Entitic vol] 41.2 fL 35.1-43.9 [facility] Erythrocyte distribution width (RBC) [Ratio] 14.1 % 11.6-14.6 [facility] Immature granulocytes/100 WBC (Bld) 2.700 % 0.0-0.9 [facility] Comment on above: IG% - Immature Granu locytes (promyelocytes, myelocytes and metamyelocytes) > 1% indicates that a LEFT SHIFT is Present. MCH (RBC) [Entitic mass] 26.2 pg 27.0-32.0 [facility] Nucleated RBC/100 WBC (Bld) [Ratio] 0.2 % 0-5 [facility] Laboratory - Microbiology an d Antimicrobial susceptibilityOrdered By: Dr. Hinson on 06-29-2022 Bacteria identified Cx Nom (Bld) No growth in 5 days. [facility] MCHC Auto (RBC) [Mass/Vol]Or dered By: Dr. Rao on 06-29-2022 MCHC (RBC) [Mass/Vol] 32.1 g/dL 32-36 [facility] No Panel InformationOrdered By: Dr. Rao on 06-29-2022 Estimated Creatinine Clearance Calc 108.46 ml/min [facility] Estimated GFR (MDRD) Amer 125 mL/min >60 [facility] Comment on above: GFR Calc Estimated GFR (MDRD) Non-Af Amer 103 mL/min >60 [facility] Comment on above: Non- GFR Calc Platelets bldOrdered By: Dr. Rao on 06-29-2022 Platelets (Bld) [#/Vol] 363 10*3/uL 150-450 [facility] Serum or plasma calcium hussein urement (mass/volume)Ordered By: Dr. Rao on 06-29-2022 Calcium [Mass/Vol] 8.4 mg/dL 8.5-10.1 [facility] Serum or plasma creatinine m easurement (mass/volume)Ordered By: Dr. Rao on 06-29-2022 Creatinine [Mass/Vol] 0.71 mg/dL 0.55-1.02 [facility] Comment on above: The validity of the calculated GFR & GFRAA in patients over 70 years has not been determined. Clinical correlation is essential. Serum or plasma urea nitroge n measurement (mass/volume)Ordered By: Dr. Rao on 06-29-2022 Urea nitrogen [Mass/Vol] 13 mg/dL 7-18 [facility] Thin prep Papanicolaou smear with manual screeningOrdered By: Dr. Rao on 06-29-2022 Thin prep Papanicolaou smear with manual screening 7 5-15 [facility] Vancomycin troughOrdered By: Dr. Rao on 06-28-2022 Vancomycin trough [Mass/Vol] 15.6 ug/mL 5.0-15.0 [facility] Comment on above: VANCOMYCIN STANDARED DRUG THERAPY TROUGH LEVEL: 5.0 - 15.0 mg/L VANCOMYCIN HIGH INTENSITY THERAPY TROUGH LEVEL: 15.0 - 20.0 mg/L High Intensity therapy recommended for serious lifethreatening infections include:- [id number]-Dzcroyqhoeet-Eocyeyzbx (Ventilator/Healtcare Associated)-Sepsis PLEASE CONTACT PHARMACY SERVICES (#[id number]) FOR INTERPRETATIONOF RESULTS. Bacteria identified Cx Nom ( Wound)Ordered By: Dr. Matias on 06-26-2022 Wound Culture Streptococcus agalactiae (B) [facility] Culture, urineOrdered By: Dr Marine Hinson on 06-26-2022 Bacteria identified Cx Nom (U) Culture exhibits no growth. [facility] Laboratory - Chemistry and C hemistry - challengeOrdered By: Dr. Morton on 06-26-2022 HCG ( test) Ql (U) Negative [facility] Comment on above: Very dilute urine sp ecimens, as indicated by a low specificgravity, may not contain traveling representative levels of hCG. If is still suspected, a first morning urinespecimen should be collected 48 hours later and tested. Absolute lymphocyte counton 06-25-2022 Lymphocytes Auto (Unsp spec) [#/Vol] 3.27 10*3/uL 0.83-4.51 [facility] Work Phone: Basophil percentageon 2021 Basophils/100 WBC (Bld) 0.7 % 0-1 [facility] Work Phone: Chloride [Moles/Vol] 104 mmol/L 98-107 [facility] Work Phone: Eosinophils/100 WBC (Bld) 1.2 % 0-5 [facility] Work Phone: Glucose [Mass/Vol] 261 mg/dL 74-106 [facility] Work Phone: Comment on above: Glucose result great er than or equal to 200 mg/dLsuggests DIABETES MELLITUS per A.D.A. criteria. Neutrophils (Bld) [#/Vol] 4.8 10*3/uL 2.0-7.7 [facility] Work Phone: Neutrophils/100 WBC (Bld) 53.1 % 47-70 [facility] Work Phone: Potassium [Moles/Vol] 4.3 mmol/L 3.5-5.1 [facility] Work Phone: Sodium [Moles/Vol] 135 mmol/L 136-145 [facility] Work Phone: WBC (Bld) [#/Vol] 9.0 10*3/uL 4.4-11.0 [facility] Work Phone: Blood erythrocytes count (nu mber/volume)on 06-25-2022 RBC (Bld) [#/Vol] 4.62 10*6/uL 4.2-5.4 [facility] Work Phone: Blood hemoglobin measurement (mass/volume)on 06-25-2022 Hemoglobin (Bld) [Mass/Vol] 12.1 g/dL 12.0-15.0 [facility] Work Phone: Blood lymphocytes/100 leukoc yteson 06-25-2022 Lymphocytes/100 WBC (Bld) 36.4 % 19-41 [facility] Work Phone: Blood monocytes/100 leukocyt eson 06-25-2022 Monocytes/100 WBC (Bld) 7.0 % 0-10 [facility] Work Phone: Blood platelet mean volumeon 06-25-2022 Platelet mean volume (Bld) [Entitic vol] 9.5 fL 6.2-12.0 [facility] Work Phone: Determination of erythrocyte mean corpuscular volume (MCV)on 06-25-2022 MCV (RBC) [Entitic vol] 82.0 fL 81-99 [facility] Work Phone: Glucose Glucometer (BldC) [M ass/Vol]on 06-25-2022 Glucose [Mass/Vol] 263 mg/dL 74-106 [facility] Work Phone: Comment on above: MANAGEMENT OF PATIEN T CARE PER NURSING PROTOCOL Hematocrit Auto (Bld) [Volum e fraction]on 06-25-2022 Hematocrit (Bld) [Volume fraction] 37.9 % 37-47 [facility] Work Phone: Laboratory - Chemistry and C hemistry - challengeon 06-25-2022 CO2 [Moles/Vol] 24.0 mmol/L 21.0-32.0 [facility] Work Phone: Urea nitrogen/Creatinine [Mass ratio] 13.1 mg/mg 10-20 [facility] Work Phone: [phone] Laboratory - Hematology and Cell countson 06-25-2022 Erythrocyte distribution width (RBC) [Entitic vol] 41.4 fL 35.1-43.9 [facility] Work Phone: [phone] Erythrocyte distribution width (RBC) [Ratio] 14.1 % 11.6-14.6 [facility] Work Phone: Immature granulocytes/100 WBC (Bld) 1.600 % 0.0-0.9 [facility] Work Phone: [phone] Comment on above: IG% - Immature Granu locytes (promyelocytes, myelocytes and metamyelocytes) > 1% indicates that a LEFT SHIFT is Present. MCH (RBC) [Entitic mass] 26.2 pg 27.0-32.0 [facility] Work Phone: [phone] Nucleated RBC/100 WBC (Bld) [Ratio] 0 % 0-5 [facility] Work Phone: [phone] MCHC Auto (RBC) [Mass/Vol]on 06-25-2022 MCHC (RBC) [Mass/Vol] 31.9 g/dL 32-36 [facility] Work Phone: No Panel Informationon 06-25 Estimated Creatinine Clearance Calc 101.33 ml/min [facility] Work Phone: [phone] Estimated GFR (MDRD) Amer 114 mL/min >60 [facility] Work Phone: [phone] Comment on above: GFR Calc Estimated GFR (MDRD) Non-Af Amer 95 mL/min >60 [facility] Work Phone: [phone] Comment on above: Non- GFR Calc Platelets bldon 06-25-2022 Platelets (Bld) [#/Vol] 353 10*3/uL 150-450 [facility] Work Phone: [phone] Serum or plasma calcium hussein urement (mass/volume)on 06-25-2022 Calcium [Mass/Vol] 8.6 mg/dL 8.5-10.1 [facility] Work Phone: [phone] Serum or plasma creatinine m easurement (mass/volume)on 06-25-2022 Creatinine [Mass/Vol] 0.76 mg/dL 0.55-1.02 [facility] Work Phone: [phone] Comment on above: The validity of the calculated GFR & GFRAA in patients over 70 years has not been determined. Clinical correlation is essential. Serum or plasma urea nitroge n measurement (mass/volume)on 06-25-2022 Urea nitrogen [Mass/Vol] 10 mg/dL 7-18 [facility] Work Phone: Thin prep Papanicolaou smear with manual screeningon 06-25-2022 Thin prep Papanicolaou smear with manual screening 7 -15 [facility] Work Phone: Absolute lymphocyte counton 06-24-2022 Lymphocytes Auto (Unsp spec) [#/Vol] 3.15 10*3/uL 0.83-4.51 [facility] Work Phone: Basophil percentageOrdered B y: Dr. Hinson on 06-24-2022 Lactate [Moles/Vol] 3.0 mmol/L 0.4-2.0 [facility] Comment on above: Critical Result(s) C alled at: 18:06:09 06/24/2022 by: LUIS E VALENZUELA.TO SIVA PACHECO RN MS-3 Results read back by same. Basophil percentage 0 SEEN /hpf 0-5 [facility] Bilirubin [Mass/Vol] 0.30 mg/dL 0.20-1.00 [facility] Comment on above: For patients on eltr ombopag therapy, use of Dimension [place] TBIL is not recommended. Protein [Mass/Vol] 8.0 g/dL 6.4-8.2 [facility] Basophil percentageon 2021 Basophils/100 WBC (Bld) 0.5 % 0-1 [facility] Work Phone: Chloride [Moles/Vol] 104 mmol/L 98-107 [facility] Work Phone: Eosinophils/100 WBC (Bld) 0.7 % 0-5 [facility] Work Phone: Glucose [Mass/Vol] 318 mg/dL 74-106 [facility] Work Phone: Comment on above: Glucose result great er than or equal to 200 mg/dLsuggests DIABETES MELLITUS per A.D.A. criteria. Lactate [Moles/Vol] 4.8 mmol/L 0.4-2.0 [facility] Work Phone: Comment on above: Critical Result(s) C alled at: 13:11:31 06/24/2022 by: Gayathri Edmond. Results read back by same. Neutrophils (Bld) [#/Vol] 5.1 10*3/uL 2.0-7.7 [facility] Work Phone: [phone] Neutrophils/100 WBC (Bld) 56.2 % 47-70 [facility] Work Phone: [phone] Potassium [Moles/Vol] 3.9 mmol/L 3.5-5.1 [facility] Work Phone: [phone] Sodium [Moles/Vol] 138 mmol/L 136-145 [facility] Work Phone: [phone] WBC (Bld) [#/Vol] 9.1 10*3/uL 4.4-11.0 [facility] Work Phone: Bilirubin Test strip Ql (U)O rdered By: Dr. Hinson on 06-24-2022 Bilirubin Ql (U) Negative Negative [facility] Blood erythrocytes count (nu mber/volume)on 06-24-2022 RBC (Bld) [#/Vol] 4.73 10*6/uL 4.2-5.4 [facility] Work Phone: Blood hemoglobin measurement (mass/volume)on 06-24-2022 Hemoglobin (Bld) [Mass/Vol] 12.8 g/dL 12.0-15.0 [facility] Work Phone: Blood lymphocytes/100 leukoc yteson 06-24-2022 Lymphocytes/100 WBC (Bld) 34.6 % 19-41 [facility] Work Phone: Blood monocytes/100 leukocyt eson 06-24-2022 Monocytes/100 WBC (Bld) 6.8 % 0-10 [facility] Work Phone: Blood platelet mean volumeon 06-24-2022 Platelet mean volume (Bld) [Entitic vol] 9.3 fL 6.2-12.0 [facility] Work Phone: Determination of erythrocyte mean corpuscular volume (MCV)on 06-24-2022 MCV (RBC) [Entitic vol] 81.2 fL 81-99 [facility] Work Phone: Gram stain for investigation of transfusion reactionOrdered By: Dr. Matias on 06-24-2022 Microscopic observation Gram stain Nom (Unsp spec) [facility] Hematocrit Auto (Bld) [Volum e fraction]on 06-24-2022 Hematocrit (Bld) [Volume fraction] 38.4 % 37-47 [facility] Work Phone: [phone] Ketones Test strip Ql (U)Ord ered By: Dr. Hinsno on 06-24-2022 Ketones Ql (U) 15 mg/dl Negative [facility] Laboratory - Chemistry and C hemistry - challengeOrdered By: Dr. Hinson on 06-24-2022 ALP [Catalytic activity/Vol] 76 U/L 45-117 [facility] ALT [Catalytic activity/Vol] 22 U/L 13-56 [facility] Globulin (S) [Mass/Vol] 5.2 g/dL 2.2-4.2 [facility] Laboratory - Chemistry and C hemistry - challengeon 06-24-2022 CO2 [Moles/Vol] 28.0 mmol/L 21.0-32.0 [facility] Work Phone: Urea nitrogen/Creatinine [Mass ratio] 13.8 mg/mg 10-20 [facility] Work Phone: Laboratory - Hematology and Cell countson 06-24-2022 Erythrocyte distribution width (RBC) [Entitic vol] 41.3 fL 35.1-43.9 [facility] Work Phone: [phone] Erythrocyte distribution width (RBC) [Ratio] 14.2 % 11.6-14.6 [facility] Work Phone: Immature granulocytes/100 WBC (Bld) 1.200 % 0.0-0.9 [facility] Work Phone: [phone] Comment on above: IG% - Immature Granu locytes (promyelocytes, myelocytes and metamyelocytes) > 1% indicates that a LEFT SHIFT is Present. MCH (RBC) [Entitic mass] 27.1 pg 27.0-32.0 [facility] Work Phone: Nucleated RBC/100 WBC (Bld) [Ratio] 0 % 0-5 [facility] Work Phone: MCHC Auto (RBC) [Mass/Vol]on 06-24-2022 MCHC (RBC) [Mass/Vol] 33.3 g/dL 32-36 [facility] Work Phone: Mucus LM Ql (Urine sed)Order ed By: Dr. Hinson on 06-24-2022 Mucus Ql (Urine sed) 0 SEEN /hpf [facility] Nitrite Test strip Ql (U)Ord ered By: Dr. Hinson on 06-24-2022 Nitrite Ql (U) Negative Negative [facility] No Panel Informationon 06-24 Estimated Creatinine Clearance Calc 96.26 ml/min [facility] Work Phone: Estimated GFR (MDRD) Amer 109 mL/min >60 [facility] Work Phone: Comment on above: GFR Calc Estimated GFR (MDRD) Non-Af Amer 90 mL/min >60 [facility] Work Phone: Comment on above: Non- GFR Calc Platelets bldon 06-24-2022 Platelets (Bld) [#/Vol] 345 10*3/uL 150-450 [facility] Work Phone: Protein Test strip Ql (U)Ord ered By: Dr. Hinson on 06-24-2022 Protein Ql (U) 15 mg/dl Negative [facility] Serum or plasma albumin hussein urement (mass/volume)Ordered By: Dr. Hinson on 06-24-2022 Albumin [Mass/Vol] 2.8 g/dL 3.2-5.0 [facility] Serum or plasma albumin/glob ulin mass ratioOrdered By: Dr. Hinson on 06-24-2022 Albumin/Globulin [Mass ratio] 0.5 {ratio} 0.9-2.4 [facility] Serum or plasma calcium hussein urement (mass/volume)on 06-24-2022 Calcium [Mass/Vol] 9.1 mg/dL 8.5-10.1 [facility] Work Phone: Serum or plasma creatinine m easurement (mass/volume)on 06-24-2022 Creatinine [Mass/Vol] 0.80 mg/dL 0.55-1.02 [facility] Work Phone: Comment on above: The validity of the calculated GFR & GFRAA in patients over 70 years has not been determined. Clinical correlation is essential. Serum or plasma urea nitroge n measurement (mass/volume)on 06-24-2022 Urea nitrogen [Mass/Vol] 11 mg/dL 7-18 [facility] Work Phone: Squamous epithelial cells de tection in urine sediment by light microscopyOrdered By: Dr. Hinson on 06-24-2022 Epithelial cells.squamous LM Ql (Urine sed) 5-10 SEEN /hpf 5-10 [facility] Thin prep Papanicolaou smear with manual screeningOrdered By: Dr. Hinson on 06-24-2022 Thin prep Papanicolaou smear with manual screening 10 U/L 15-37 [facility] Thin prep Papanicolaou smear with manual screeningon 06-24-2022 Thin prep Papanicolaou smear with manual screening 6 5-15 [facility] Work Phone: Urine blood detectionOrdered By: Dr. Hinson on 06-24-2022 RBC Ql (U) 25 /ul Negative [facility] RBC Ql (U) 10-25 SEEN /hpf 0-5 [facility] Urine clarityOrdered By: Dr. Hinson on 06-24-2022 Clarity (U) Sl. Cloudy Clear [facility] Urine color determinationOrd ered By: Dr. Hinson on 06-24-2022 Color (U) Yellow Yellow [facility] Urine glucose detectionOrder ed By: Dr. Hinson on 06-24-2022 Glucose Ql (U) 1000 mg/dl Normal [facility] Urine leukocyte esterase det ection by dipstickOrdered By: Dr. Hinson on 06-24-2022 Leukocyte esterase Test strip Ql (U) Negative Negative [facility] Urine pHOrdered By: Dr. Vonda aden on 06-24-2022 pH (U) 5.0 [pH] 5.0 - 8.0 [facility] Urine sediment bacteria coun t by microscopy (number/high power field)Ordered By: Dr. Hinson on 06-24-2022 Bacteria LM.HPF (Urine sed) [#/Area] RARE /hpf None Seen [facility] Urine specific gravity measu rementOrdered By: Dr. Hinson on 06-24-2022 Specific gravity (U) [Rel density] 1.025 1.002-1.030 [facility] Urobilinogen Auto test strip Ql (U)Ordered By: Dr. Hinson on 06-24-2022 Urobilinogen Ql (U) Normal mg/dl Normal [facility] Whole blood hemoglobin A1c/t otal hemoglobin ratio (mass fraction)Ordered By: Dr. Rao on 06-24-2022 HbA1c (Bld) [Mass fraction] 10.6 % 3.8-5.6 [facility] Comment on above: Normal < 5.7 % Predi abetic 5.7 - 6.4 % Diabetic >or= 6.5 % Please note range changes. No Panel InformationOrdered By: Dr. Matias on 06-23-2022 Methicillin-Resist S.aureus DNA PCR Positive Negative [facility] Staphylococcus aureus DNA de tection by probe and target amplification methodOrdered By: Dr. Matias on 06-23-2022 S. aureus DNA REBECCA+probe Ql (Unsp spec) Positive Negative [facility] Absolute lymphocyte countOrd ered By: Dr. Matias on 05-07-2022 Lymphocytes Auto (Unsp spec) [#/Vol] 0.99 10*3/uL 0.83-4.51 [facility] Comment on above: Previous reported re sult: 5.07 X10^3/uLEdited by: BHUPINDER on 05/07/22:1437 AMENDED REPORT 05/07/22 1437 Absolute Lymph previously reported as: 5.07 H X10^3/uL Basophil percentageOrdered B y: Dr. Matias on 05-07-2022 Basophil percentage JOB LITHOGRAPHER [facility] Comment on above: Previous reported re sult: [...] 0.6 % Bilirubin [Mass/Vol] 0.20 mg/dL 0.20-1.00 [facility] Comment on above: For patients on eltr ombopag therapy, use of Dimension [place] TBIL is not recommended. Chloride [Moles/Vol] 101 mmol/L 98-107 [facility] Glucose [Mass/Vol] 207 mg/dL 74-106 [facility] Comment on above: Glucose result great er than or equal to 200 mg/dLsuggests DIABETES MELLITUS per A.D.A. criteria. Neutrophils (Bld) [#/Vol] 8.8 10*3/uL 2.0-7.7 [facility] Comment on above: Previous reported re sult: 4.8 X10^3/uLEdited by: BHUPINDER on 05/07/22:1436 AMENDED REPORT 05/07/221435 Absolute Neut previously reported as: 4.8 X10^3/uL Potassium [Moles/Vol] 4.0 mmol/L 3.5-5.1 [facility] Protein [Mass/Vol] 8.4 g/dL 6.4-8.2 [facility] Sodium [Moles/Vol] 134 mmol/L 136-145 [facility] WBC (Bld) [#/Vol] 11.1 10*3/uL 4.4-11.0 [facility] Blood band neutrophil count as percentage of total leukocytesOrdered By: Dr. Matias on 05-07-2022 Band form neutrophils/100 WBC (Bld) 6 % 0-5 [facility] Blood erythrocytes count (nu mber/volume)Ordered By: Dr. Matias on 05-07-2022 RBC (Bld) [#/Vol] 4.81 10*6/uL 4.2-5.4 [facility] Blood hemoglobin measurement (mass/volume)Ordered By: Dr. Matias on 05-07-2022 Hemoglobin (Bld) [Mass/Vol] 13.0 g/dL 12.0-15.0 [facility] Blood lymphocytes/100 leukoc ytesOrdered By: Dr. Matias on 05-07-2022 Lymphocytes/100 WBC (Bld) JOB L[employer]OGR[employer]HER [facility] Comment on above: Previous reported re sult: 45.7 %Edited by: BHUPINDER on 05/07/22:1430 AMENDED REPORT 05/07/22 1430 LY% previously reported as: 45.7 H % Lymphocytes/100 WBC (Bld) 9 % 19-41 [facility] Blood monocytes/100 leukocyt esOrdered By: Dr. Matias on 05-07-2022 Monocytes/100 WBC (Bld) JOB LITHOGRAPHER [facility] Comment on above: Previous reported re sult: 5.2 %Edited by: BHUPINDER on 05/07/22:1430 AMENDED REPORT 05/07/22 1430 MONO% previously reported as: 5.2 % Monocytes/100 WBC (Bld) 12 % 0-10 [facility] Blood platelet mean volumeOr dered By: Dr. Matias on 05-07-2022 Platelet mean volume (Bld) [Entitic vol] 9.0 fL 6.2-12.0 [facility] Blood platelet morphology de termination (nominal result)Ordered By: Dr. Matias on 05-07-2022 Platelet morphology finding Nom (Bld) LARGE [facility] Blood segmented neutrophils/ [address]: [address] Matias on 05-07-2022 Segmented neutrophils/100 WBC (Bld) 73 % 47-70 [facility] Determination of erythrocyte mean corpuscular volume (MCV)Ordered By: Dr. Matias on 05-07-2022 MCV (RBC) [Entitic vol] 81.3 fL 81-99 [facility] Hematocrit Auto (Bld) [Volum e fraction]Ordered By: Dr. Matias on 05-07-2022 Hematocrit (Bld) [Volume fraction] 39.1 % 37-47 [facility] Laboratory - Chemistry and C hemistry - challengeOrdered By: Dr. Matias on 05-07-2022 ALP [Catalytic activity/Vol] 76 U/L 45-117 [facility] ALT [Catalytic activity/Vol] 23 U/L 13-56 [facility] CO2 [Moles/Vol] 25.0 mmol/L 21.0-32.0 [facility] Globulin (S) [Mass/Vol] 5.0 g/dL 2.2-4.2 [facility] Urea nitrogen/Creatinine [Mass ratio] 17.4 mg/mg 10-20 [facility] Laboratory - Hematology and Cell countsOrdered By: Dr. Matias on 05-07-2022 Erythrocyte distribution width (RBC) [Entitic vol] 41.1 fL 35.1-43.9 [facility] Erythrocyte distribution width (RBC) [Ratio] 14.0 % 11.6-14.6 [facility] MCH (RBC) [Entitic mass] 27.0 pg 27.0-32.0 [facility] Nucleated RBC/100 WBC (Bld) [Ratio] 0 % 0-5 [facility] MCHC Auto (RBC) [Mass/Vol]Or dered By: Dr. Matias on 05-07-2022 MCHC (RBC) [Mass/Vol] 33.2 g/dL 32-36 [facility] No Panel InformationOrdered By: Dr. Matias on 05-07-2022 Atypical Lymphocytes RARE % [facility] Estimated GFR (MDRD) Amer 99 mL/min >60 [facility] Comment on above: GFR Calc Estimated GFR (MDRD) Non-Af Amer 82 mL/min >60 [facility] Comment on above: Non- GFR Calc Immature Granulocyte % (Auto) JOB LITHOGRAPHER [facility] Comment on above: Previous reported re sult: 1.500 %Edited by: BHUPINDER on 05/07/22:1431 AMENDED REPORT 05/07/22 1431 IM GRAN % previously reported as: 1.500 H % IG% - Immature Granulocytes (promyelocytes, myelocytes and metamyelocytes) > 1% indicates that a LEFT SHIFT is Present. Platelets bldOrdered By: Dr. Matias on 05-07-2022 Platelets (Bld) [#/Vol] 369 10*3/uL 150-450 [facility] RBC morphologyOrdered By: Dr Marine Matias on 05-07-2022 RBC morphology finding Nom (Bld) NORM C+C NORMAL NORM C&C [facility] Review by pathologiston 04-12 Pathologist review Franky (Unsp spec) [Interp] Zahraa waite [facility] Work Phone: Review by pathologistOrdered By: Dr. Matias on 05-07-2022 Pathologist review Franky (Unsp spec) [Interp] Reviewed [facility] Comment on above: Previous reported re sult: Zahraa waite Edited by: RGOOD on 05/08/22:1553Neutrophilic leukocytosis.Clinical correlation suggested.Franki Glez D.O. 05/08/22 AMENDED REPORT 05/08/22 1553 PATH REV previously reported as: Zahraa waite Serum or plasma albumin hussein urement (mass/volume)Ordered By: Dr. Matias on 05-07-2022 Albumin [Mass/Vol] 3.4 g/dL 3.2-5.0 [facility] Serum or plasma albumin/glob ulin mass ratioOrdered By: Dr. Matias on 05-07-2022 Albumin/Globulin [Mass ratio] 0.7 {ratio} 0.9-2.4 [facility] Serum or plasma calcium hussein urement (mass/volume)Ordered By: Dr. Matias on 05-07-2022 Calcium [Mass/Vol] 8.7 mg/dL 8.5-10.1 [facility] Serum or plasma creatinine m easurement (mass/volume)Ordered By: Dr. Matias on 05-07-2022 Creatinine [Mass/Vol] 0.86 mg/dL 0.55-1.02 [facility] Comment on above: The validity of the calculated GFR & GFRAA in patients over 70 years has not been determined. Clinical correlation is essential. Serum or plasma urea nitroge n measurement (mass/volume)Ordered By: Dr. Matias on 05-07-2022 Urea nitrogen [Mass/Vol] 15 mg/dL 7-18 [facility] Thin prep Papanicolaou smear with manual screeningOrdered By: Dr. Matias on 05-07-2022 Thin prep Papanicolaou smear with manual screening 10 U/L 15-37 [facility] Thin prep Papanicolaou smear with manual screening 8 5-15 [facility] Basophil percentageOrdered B y: [facility] on 04-20-2022 Chloride [Moles/Vol] 104 mmol/L 98-107 [facility] Glucose [Mass/Vol] 224 mg/dL 74-106 [facility] Comment on above: Glucose result great er than or equal to 200 mg/dLsuggests DIABETES MELLITUS per A.D.A. criteria. Potassium [Moles/Vol] 3.7 mmol/L 3.5-5.1 [facility] Sodium [Moles/Vol] 139 mmol/L 136-145 [facility] WBC (Bld) [#/Vol] 9.3 10*3/uL 4.4-11.0 [facility] Blood erythrocytes count (nu mber/volume)Ordered By: [facility] on 04-20-2022 RBC (Bld) [#/Vol] 3.93 10*6/uL 4.2-5.4 [facility] Blood hemoglobin measurement (mass/volume)Ordered By: [facility] on 04-20-2022 Hemoglobin (Bld) [Mass/Vol] 10.4 g/dL 12.0-15.0 [facility] Blood platelet mean volumeOr dered By: [facility] on 04-20-2022 Platelet mean volume (Bld) [Entitic vol] 9.6 fL 6.2-12.0 [facility] Determination of erythrocyte mean corpuscular volume (MCV)Ordered By: [facility] on 04-20-2022 MCV (RBC) [Entitic vol] 83.7 fL 81-99 [facility] Erythrocyte sedimentation ra teOrdered By: [facility] on 04-20-2022 ESR (Bld) [Velocity] 60 mm/h 0-30 [facility] Hematocrit Auto (Bld) [Volum e fraction]Ordered By: [facility] on 04-20-2022 Hematocrit (Bld) [Volume fraction] 32.9 % 37-47 [facility] Laboratory - Chemistry and C hemistry - challengeOrdered By: [facility] on 04-20-2022 CO2 [Moles/Vol] 28.0 mmol/L 21.0-32.0 [facility] Urea nitrogen/Creatinine [Mass ratio] 16.3 mg/mg 10-20 [facility] Laboratory - Hematology and Cell countsOrdered By: [facility] on 04-20-2022 Erythrocyte distribution width (RBC) [Entitic vol] 41.4 fL 35.1-43.9 [facility] Erythrocyte distribution width (RBC) [Ratio] 13.5 % 11.6-14.6 [facility] MCH (RBC) [Entitic mass] 26.5 pg 27.0-32.0 [facility] MCHC Auto (RBC) [Mass/Vol]Or dered By: [facility] on 04-20-2022 MCHC (RBC) [Mass/Vol] 31.6 g/dL 32-36 [facility] No Panel InformationOrdered By: [facility] on 04-20-2022 Estimated GFR (MDRD) Amer 147 mL/min >60 [facility] Comment on above: GFR Calc Estimated GFR (MDRD) Non-Af Amer 122 mL/min >60 [facility] Comment on above: Non- GFR Calc Platelets bldOrdered By: [facility] on 04-20-2022 Platelets (Bld) [#/Vol] 509 10*3/uL 150-450 [facility] Serum or plasma calcium hussein urement (mass/volume)Ordered By: [facility] on 04-20-2022 Calcium [Mass/Vol] 8.5 mg/dL 8.5-10.1 [facility] Serum or plasma creatinine m easurement (mass/volume)Ordered By: [facility] on 04-20-2022 Creatinine [Mass/Vol] 0.61 mg/dL 0.55-1.02 [facility] Comment on above: The validity of the calculated GFR & GFRAA in patients over 70 years has not been determined. Clinical correlation is essential. Serum or plasma urea nitroge n measurement (mass/volume)Ordered By: [facility] on 04-20-2022 Urea nitrogen [Mass/Vol] 10 mg/dL 7-18 [facility] Thin prep Papanicolaou smear with manual screeningOrdered By: [facility] on 04-20-2022 Thin prep Papanicolaou smear with manual screening 7 5-15 [facility] Vancomycin troughOrdered By: [facility] on 04-20-2022 Vancomycin trough [Mass/Vol] 7.2 ug/mL 5.0-15.0 [facility] Comment on above: VANCOMYCIN STANDARED DRUG THERAPY TROUGH LEVEL: 5.0 - 15.0 mg/L VANCOMYCIN HIGH INTENSITY THERAPY TROUGH LEVEL: 15.0 - 20.0 mg/L High Intensity therapy recommended for serious lifethreatening infections include:- Uqedehchjd-Ejugpxaviymn-[place] (Ventilator/Healtcare Associated)-Sepsis PLEASE CONTACT PHARMACY SERVICES (#6121) FOR INTERPRETATIONOF RESULTS. Basophil percentageon 2021 Chloride [Moles/Vol] 103 mmol/L 98-107 [facility] Work Phone: Glucose [Mass/Vol] 188 mg/dL 74-106 [facility] Work Phone: Comment on above: Fasting Glucose resu lt greater than or equal to 126 mg/dL suggests DIABETES MELLITUS per A.D.A. criteria. Potassium [Moles/Vol] 4.3 mmol/L 3.5-5.1 [facility] Work Phone: Sodium [Moles/Vol] 137 mmol/L 136-145 [facility] Work Phone: WBC (Bld) [#/Vol] 10.0 10*3/uL 4.4-11.0 [facility] Work Phone: Blood erythrocytes count (nu mber/volume)on 04-13-2022 RBC (Bld) [#/Vol] 4.32 10*6/uL 4.2-5.4 [facility] Work Phone: Blood hemoglobin measurement (mass/volume)on 04-13-2022 Hemoglobin (Bld) [Mass/Vol] 11.5 g/dL 12.0-15.0 [facility] Work Phone: [phone] Blood platelet mean volumeon 04-13-2022 Platelet mean volume (Bld) [Entitic vol] 9.2 fL 6.2-12.0 [facility] Work Phone: [phone] Determination of erythrocyte mean corpuscular volume (MCV)on 04-13-2022 MCV (RBC) [Entitic vol] 84.7 fL 81-99 [facility] Work Phone: [phone] Erythrocyte sedimentation ra abeba 04-13-2022 ESR (Bld) [Velocity] 90 mm/h 0-30 [facility] Work Phone: [phone] Hematocrit Auto (Bld) [Volum e fraction]on 04-13-2022 Hematocrit (Bld) [Volume fraction] 36.6 % 37-47 [facility] Work Phone: [phone] Laboratory - Chemistry and C hemistry - challengeon 04-13-2022 CO2 [Moles/Vol] 25.0 mmol/L 21.0-32.0 [facility] Work Phone: [phone] Urea nitrogen/Creatinine [Mass ratio] 18.8 mg/mg 10-20 [facility] Work Phone: [phone] Laboratory - Hematology and Cell countson 04-13-2022 Erythrocyte distribution width (RBC) [Entitic vol] 41.8 fL 35.1-43.9 [facility] Work Phone: [phone] Erythrocyte distribution width (RBC) [Ratio] 13.4 % 11.6-14.6 [facility] Work Phone: [phone] MCH (RBC) [Entitic mass] 26.6 pg 27.0-32.0 [facility] Work Phone: [phone] MCHC Auto (RBC) [Mass/Vol]on 04-13-2022 MCHC (RBC) [Mass/Vol] 31.4 g/dL 32-36 [facility] Work Phone: No Panel Informationon 04-13 Estimated GFR (MDRD) Amer 128 mL/min >60 [facility] Work Phone: Comment on above: GFR Calc Estimated GFR (MDRD) Non-Af Amer 106 mL/min >60 [facility] Work Phone: Comment on above: Non- GFR Calc Platelets bldon 04-13-2022 Platelets (Bld) [#/Vol] 609 10*3/uL 150-450 [facility] Work Phone: Serum or plasma calcium hussein urement (mass/volume)on 04-13-2022 Calcium [Mass/Vol] 9.4 mg/dL 8.5-10.1 [facility] Work Phone: Serum or plasma creatinine m easurement (mass/volume)on 04-13-2022 Creatinine [Mass/Vol] 0.69 mg/dL 0.55-1.02 [facility] Work Phone: Comment on above: The validity of the calculated GFR & GFRAA in patients over 70 years has not been determined. Clinical correlation is essential. Serum or plasma urea nitroge n measurement (mass/volume)on 04-13-2022 Urea nitrogen [Mass/Vol] 13 mg/dL 7-18 [facility] Work Phone: Thin prep Papanicolaou smear with manual screeningon 04-13-2022 Thin prep Papanicolaou smear with manual screening 9 5-15 [facility] Work Phone: [phone] Vancomycin troughon 04-13-20 Vancomycin trough [Mass/Vol] 19.3 ug/mL 5.0-15.0 [facility] Work Phone: Comment on above: VANCOMYCIN STANDARED DRUG THERAPY TROUGH LEVEL: 5.0 - 15.0 mg/L VANCOMYCIN HIGH INTENSITY THERAPY TROUGH LEVEL: 15.0 - 20.0 mg/L High Intensity therapy recommended for serious lifethreatening infections include:- Adjwvonshe-Zswwjrqvagtb-Ysrhjujzm (Ventilator/Healtcare Associated)-Sepsis PLEASE CONTACT PHARMACY SERVICES (#[id number]) FOR INTERPRETATIONOF RESULTS. Basophil percentageon 2021 Chloride [Moles/Vol] 100 mmol/L 98-107 [facility] Work Phone: [phone] Cholesterol [Mass/Vol] 143 mg/dL <200 [facility] Work Phone: [phone] Comment on above: <200 mg/dL Desirable 200-240 mg/dL Borderline >240 mg/dL High Risk Glucose [Mass/Vol] 217 mg/dL 74-106 [facility] Work Phone: Comment on above: Glucose result great er than or equal to 200 mg/dLsuggests DIABETES MELLITUS per A.D.A. criteria. Potassium [Moles/Vol] 3.7 mmol/L 3.5-5.1 [facility] Work Phone: Sodium [Moles/Vol] 137 mmol/L 136-145 [facility] Work Phone: [phone] Triglyceride [Mass/Vol] 170 mg/dL <199 [facility] Work Phone: Comment on above: The drugs N-Acetylcy steine and Metamizole may falsely depress this assay.Serum Triglycerides Reference Interval Normal <150 mg/dL Borderline high 150 - 199 mg/dL High 200 - 499 mg/dL Very High > or = 500 mg/dL WBC (Bld) [#/Vol] 9.1 10*3/uL 4.4-11.0 [facility] Work Phone: [phone] Blood erythrocytes count (nu mber/volume)on 04-10-2022 RBC (Bld) [#/Vol] 3.85 10*6/uL 4.2-5.4 [facility] Work Phone: [phone] Blood hemoglobin measurement (mass/volume)on 04-10-2022 Hemoglobin (Bld) [Mass/Vol] 10.2 g/dL 12.0-15.0 [facility] Work Phone: [phone] Blood platelet mean volumeon 04-10-2022 Platelet mean volume (Bld) [Entitic vol] 9.1 fL 6.2-12.0 [facility] Work Phone: [phone] Determination of erythrocyte mean corpuscular volume (MCV)on 04-10-2022 MCV (RBC) [Entitic vol] 82.6 fL 81-99 [facility] Work Phone: [phone] Erythrocyte sedimentation ra abeba 04-10-2022 ESR (Bld) [Velocity] 58 mm/h 0-30 [facility] Work Phone: [phone] Hematocrit Auto (Bld) [Volum e fraction]on 04-10-2022 Hematocrit (Bld) [Volume fraction] 31.8 % 37-47 [facility] Work Phone: [phone] Laboratory - Chemistry and C hemistry - challengeon 04-10-2022 CO2 [Moles/Vol] 32.0 mmol/L 21.0-32.0 [facility] Work Phone: [phone] Cobalamin (Vitamin B12) [Mass/Vol] 216 pg/mL 211-911 [facility] Work Phone: [phone] Urea nitrogen/Creatinine [Mass ratio] 22.7 mg/mg 10-20 [facility] Work Phone: [phone] Laboratory - Hematology and Cell countson 04-10-2022 Erythrocyte distribution width (RBC) [Entitic vol] 39.7 fL 35.1-43.9 [facility] Work Phone: [phone] Erythrocyte distribution width (RBC) [Ratio] 13.2 % 11.6-14.6 [facility] Work Phone: [phone] MCH (RBC) [Entitic mass] 26.5 pg 27.0-32.0 [facility] Work Phone: [phone] MCHC Auto (RBC) [Mass/Vol]on 04-10-2022 MCHC (RBC) [Mass/Vol] 32.1 g/dL 32-36 [facility] Work Phone: [phone] Panel Informationon 04-10 Estimated GFR (MDRD) Amer 146 mL/min >60 [facility] Work Phone: [phone] Comment on above: GFR Calc Estimated GFR (MDRD) Non-Af Amer 120 mL/min >60 [facility] Work Phone: Comment on above: Non- GFR Calc Vitamin D 25-Hydroxy 18.5 ng/mL [facility] Work Phone: Comment on above: Vitamin D 25(OH) Sta tus Range Deficiency <20 ng/mL (50nmol/L) Insufficiency 20 - 30 ng/mL (50 - 75 nmol/L) Sufficiency 30 - 100 ng/mL (75 - 250 nmol/L) Toxicity >100 ng/mL (>250 nmol/L) Platelets bldon 04-10-2022 Platelets (Bld) [#/Vol] 540 10*3/uL 150-450 [facility] Work Phone: Serum or plasma calcium hussein urement (mass/volume)on 04-10-2022 Calcium [Mass/Vol] 8.9 mg/dL 8.5-10.1 [facility] Work Phone: Serum or plasma cholesterol in HDL measurement (mass/volume)on 04-10-2022 Cholesterol in HDL [Mass/Vol] 23 mg/dL >40 [facility] Work Phone: Comment on above: The drugs N-Acetylcy steine and Metamizole may falsely depress this assay. Reference Range HDL <40 mg/dL Low HDL Cholesterol HDL >or= 60 mg/dL High HDL Cholesterol Serum or plasma cholesterol in VLDL measurement (mass/volume)on 04-10-2022 Cholesterol in VLDL [Mass/Vol] 34 mg/dL 5-40 [facility] Work Phone: Serum or plasma creatinine m easurement (mass/volume)on 04-10-2022 Creatinine [Mass/Vol] 0.62 mg/dL 0.55-1.02 [facility] Work Phone: Comment on above: The validity of the calculated GFR & GFRAA in patients over 70 years has not been determined. Clinical correlation is essential. Serum or plasma low density lipoprotein (LDL) cholesterol measurement (mass/volume)on 04-10-2022 Cholesterol in LDL [Mass/Vol] 86 mg/dL 0-130 [facility] Work Phone: Serum or plasma transthyreti n measurement (mass/volume)on 04-10-2022 Prealbumin [Mass/Vol] 11.5 mg/dL 20.0-40.0 [facility] Work Phone: Serum or plasma urea nitroge n measurement (mass/volume)on 04-10-2022 Urea nitrogen [Mass/Vol] 14 mg/dL 7-18 [facility] Work Phone: Thin prep Papanicolaou smear with manual screeningon 04-10-2022 Thin prep Papanicolaou smear with manual screening 5 5-15 [facility] Work Phone: Absolute lymphocyte counton 04-09-2022 Lymphocytes Auto (Unsp spec) [#/Vol] 2.68 10*3/uL 0.83-4.51 [facility] Work Phone: Basophil percentageon 2021 Basophils/100 WBC (Bld) 0.8 % 0-1 [facility] Work Phone: Chloride [Moles/Vol] 102 mmol/L 98-107 [facility] Work Phone: Eosinophils/100 WBC (Bld) 3.2 % 0-5 [facility] Work Phone: Glucose [Mass/Vol] 190 mg/dL 74-106 [facility] Work Phone: Comment on above: Fasting Glucose resu lt greater than or equal to 126 mg/dL suggests DIABETES MELLITUS per A.D.A. criteria. Neutrophils (Bld) [#/Vol] 3.7 10*3/uL 2.0-7.7 [facility] Work Phone: Neutrophils/100 WBC (Bld) 49.3 % 47-70 [facility] Work Phone: Potassium [Moles/Vol] 3.6 mmol/L 3.5-5.1 [facility] Work Phone: Sodium [Moles/Vol] 138 mmol/L 136-145 [facility] Work Phone: WBC (Bld) [#/Vol] 7.5 10*3/uL 4.4-11.0 [facility] Work Phone: Blood erythrocytes count (nu mber/volume)on 04-09-2022 RBC (Bld) [#/Vol] 3.73 10*6/uL 4.2-5.4 [facility] Work Phone: Blood hemoglobin measurement (mass/volume)on 04-09-2022 Hemoglobin (Bld) [Mass/Vol] 9.8 g/dL 12.0-15.0 [facility] Work Phone: Blood lymphocytes/100 leukoc yteson 04-09-2022 Lymphocytes/100 WBC (Bld) 35.8 % 19-41 [facility] Work Phone: Blood monocytes/100 leukocyt eson 04-09-2022 Monocytes/100 WBC (Bld) 9.2 % 0-10 [facility] Work Phone: Blood platelet mean volumeon 04-09-2022 Platelet mean volume (Bld) [Entitic vol] 8.8 fL 6.2-12.0 [facility] Work Phone: Determination of erythrocyte mean corpuscular volume (MCV)on 04-09-2022 MCV (RBC) [Entitic vol] 81.8 fL 81-99 [facility] Work Phone: Glucose Glucometer (BldC) [M ass/Vol]on 04-09-2022 Glucose [Mass/Vol] 251 mg/dL 74-106 [facility] Work Phone: Comment on above: MANAGEMENT OF PATIEN T CARE PER NURSING PROTOCOL Glucose [Mass/Vol] 281 mg/dL 74-106 [facility] Work Phone: Comment on above: MANAGEMENT OF PATIEN T CARE PER NURSING PROTOCOL Hematocrit Auto (Bld) [Volum e fraction]on 04-09-2022 Hematocrit (Bld) [Volume fraction] 30.5 % 37-47 [facility] Work Phone: Laboratory - Chemistry and C hemistry - challengeon 04-09-2022 CO2 [Moles/Vol] 28.0 mmol/L 21.0-32.0 [facility] Work Phone: [phone] Urea nitrogen/Creatinine [Mass ratio] 17.2 mg/mg 10-20 [facility] Work Phone: [phone] Laboratory - Hematology and Cell countson 04-09-2022 Erythrocyte distribution width (RBC) [Entitic vol] 38.9 fL 35.1-43.9 [facility] Work Phone: [phone] Erythrocyte distribution width (RBC) [Ratio] 13.0 % 11.6-14.6 [facility] Work Phone: [phone] Immature granulocytes/100 WBC (Bld) 1.700 % 0.0-0.9 [facility] Work Phone: [phone] Comment on above: IG% - Immature Granu locytes (promyelocytes, myelocytes and metamyelocytes) > 1% indicates that a LEFT SHIFT is Present. MCH (RBC) [Entitic mass] 26.3 pg 27.0-32.0 [facility] Work Phone: [phone] Nucleated RBC/100 WBC (Bld) [Ratio] 0 % 0-5 [facility] Work Phone: [phone] MCHC Auto (RBC) [Mass/Vol]on 04-09-2022 MCHC (RBC) [Mass/Vol] 32.1 g/dL 32-36 [facility] Work Phone: [phone] Panel Informationon 04-09 Estimated Creatinine Clearance Calc 120.32 ml/min [facility] Work Phone: [phone] Estimated GFR (MDRD) Amer 140 mL/min >60 [facility] Work Phone: [phone] Comment on above: GFR Calc Estimated GFR (MDRD) Non-Af Amer 116 mL/min >60 [facility] Work Phone: [phone] Comment on above: Non- GFR Calc Platelets bldon 04-09-2022 Platelets (Bld) [#/Vol] 478 10*3/uL 150-450 [facility] Work Phone: [phone] Serum or plasma calcium hussein urement (mass/volume)on 04-09-2022 Calcium [Mass/Vol] 8.7 mg/dL 8.5-10.1 [facility] Work Phone: Serum or plasma creatinine m easurement (mass/volume)on 04-09-2022 Creatinine [Mass/Vol] 0.64 mg/dL 0.55-1.02 [facility] Work Phone: Comment on above: The validity of the calculated GFR & GFRAA in patients over 70 years has not been determined. Clinical correlation is essential. Serum or plasma urea nitroge n measurement (mass/volume)on 04-09-2022 Urea nitrogen [Mass/Vol] 11 mg/dL 7-18 [facility] Work Phone: Thin prep Papanicolaou smear with manual screeningon 04-09-2022 Thin prep Papanicolaou smear with manual screening 8 5-15 [facility] Work Phone: Blood manual differential co mment interpretation (narrative result)on 04-08-2022 Manual differential comment Franky (Bld) [Interp] SCANNED [facility] Work Phone: Blood platelet adequacy dete ction by light microscopyon 04-08-2022 Platelets LM Ql (Bld) ADEQUATE ADEQ [facility] Work Phone: Vancomycin troughon 04-08-20 Vancomycin trough [Mass/Vol] 10.2 ug/mL 5.0-15.0 [facility] Work Phone: Comment on above: VANCOMYCIN STANDARED DRUG THERAPY TROUGH LEVEL: 5.0 - 15.0 mg/L VANCOMYCIN HIGH INTENSITY THERAPY TROUGH LEVEL: 15.0 - 20.0 mg/L High Intensity therapy recommended for serious lifethreatening infections include:- Rzantuzwwc-Pedsvsvrtyeg-Pbrapnont (Ventilator/Healtcare Associated)-Sepsis PLEASE CONTACT PHARMACY SERVICES (#[id number]) FOR INTERPRETATIONOF RESULTS. Basophil percentageon 2021 Bilirubin [Mass/Vol] 0.70 mg/dL 0.20-1.00 [facility] Work Phone: Comment on above: For patients on eltr ombopag therapy, use of Dimension [place] TBIL is not recommended. Protein [Mass/Vol] 7.7 g/dL 6.4-8.2 [facility] Work Phone: Laboratory - Chemistry and C hemistry - challengeon 04-07-2022 ALP [Catalytic activity/Vol] 121 U/L 45-117 [facility] Work Phone: ALT [Catalytic activity/Vol] 9 U/L 13-56 [facility] Work Phone: [phone] Globulin (S) [Mass/Vol] 5.4 g/dL 2.2-4.2 [facility] Work Phone: Serum or plasma albumin hussein urement (mass/volume)on 04-07-2022 Albumin [Mass/Vol] 2.3 g/dL 3.2-5.0 [facility] Work Phone: Serum or plasma albumin/glob ulin mass ratioon 04-07-2022 Albumin/Globulin [Mass ratio] 0.4 {ratio} 0.9-2.4 [facility] Work Phone: Thin prep Papanicolaou smear with manual screeningon 04-07-2022 Thin prep Papanicolaou smear with manual screening 6 U/L 15-37 [facility] Work Phone: [phone] Absolute lymphocyte counton 04-06-2022 Lymphocytes Auto (Unsp spec) [#/Vol] 2.55 10*3/uL 0.83-4.51 [facility] Work Phone: Basophil percentageon 2021 Basophils/100 WBC (Bld) 0.2 % 0-1 [facility] Work Phone: Chloride [Moles/Vol] 94 mmol/L 98-107 [facility] Work Phone: Eosinophils/100 WBC (Bld) 0.0 % 0-5 [facility] Work Phone: Glucose [Mass/Vol] 396 mg/dL 74-106 [facility] Work Phone: Comment on above: Glucose result great er than or equal to 200 mg/dLsuggests DIABETES MELLITUS per A.D.A. criteria. Neutrophils (Bld) [#/Vol] 18.0 10*3/uL 2.0-7.7 [facility] Work Phone: Neutrophils/100 WBC (Bld) 80.1 % 47-70 [facility] Work Phone: [phone] Potassium [Moles/Vol] 3.8 mmol/L 3.5-5.1 [facility] Work Phone: [phone] Sodium [Moles/Vol] 130 mmol/L 136-145 [facility] Work Phone: WBC (Bld) [#/Vol] 22.4 10*3/uL 4.4-11.0 [facility] Work Phone: Beta hCG serum qualon 2021 Beta HCG ( test) Ql Negative [facility] Work Phone: Blood erythrocytes count (nu mber/volume)on 04-06-2022 RBC (Bld) [#/Vol] 4.48 10*6/uL 4.2-5.4 [facility] Work Phone: Blood hemoglobin measurement (mass/volume)on 04-06-2022 Hemoglobin (Bld) [Mass/Vol] 12.0 g/dL 12.0-15.0 [facility] Work Phone: [phone] Blood lymphocytes/100 leukoc yteson 04-06-2022 Lymphocytes/100 WBC (Bld) 11.4 % 19-41 [facility] Work Phone: Blood monocytes/100 leukocyt eson 04-06-2022 Monocytes/100 WBC (Bld) 7.1 % 0-10 [facility] Work Phone: Blood platelet mean volumeon 04-06-2022 Platelet mean volume (Bld) [Entitic vol] 9.5 fL 6.2-12.0 [facility] Work Phone: [phone] Determination of erythrocyte mean corpuscular volume (MCV)on 04-06-2022 MCV (RBC) [Entitic vol] 82.1 fL 81-99 [facility] Work Phone: [phone] Erythrocyte sedimentation ra abeba 04-06-2022 ESR (Bld) [Velocity] 118 mm/h 0-30 [facility] Work Phone: [phone] Hematocrit Auto (Bld) [Volum e fraction]on 04-06-2022 Hematocrit (Bld) [Volume fraction] 36.8 % 37-47 [facility] Work Phone: [phone] Laboratory - Chemistry and C hemistry - challengeon 04-06-2022 CO2 [Moles/Vol] 25.0 mmol/L 21.0-32.0 [facility] Work Phone: [phone] Urea nitrogen/Creatinine [Mass ratio] 5.9 mg/mg 10-20 [facility] Work Phone: [phone] Laboratory - Hematology and Cell countson 04-06-2022 Erythrocyte distribution width (RBC) [Entitic vol] 39.4 fL 35.1-43.9 [facility] Work Phone: [phone] Erythrocyte distribution width (RBC) [Ratio] 13.2 % 11.6-14.6 [facility] Work Phone: [phone] Immature granulocytes/100 WBC (Bld) 1.200 % 0.0-0.9 [facility] Work Phone: [phone] Comment on above: IG% - Immature Granu locytes (promyelocytes, myelocytes and metamyelocytes) > 1% indicates that a LEFT SHIFT is Present. MCH (RBC) [Entitic mass] 26.8 pg 27.0-32.0 [facility] Work Phone: [phone] Nucleated RBC/100 WBC (Bld) [Ratio] 0 % 0-5 [facility] Work Phone: [phone] MCHC Auto (RBC) [Mass/Vol]on 04-06-2022 MCHC (RBC) [Mass/Vol] 32.6 g/dL 32-36 [facility] Work Phone: [phone] No Panel Informationon 04-06 Estimated Creatinine Clearance Calc 76.25 ml/min [facility] Work Phone: [phone] Estimated GFR (MDRD) Amer 83 mL/min >60 [facility] Work Phone: [phone] Comment on above: GFR Calc Estimated GFR (MDRD) Non-Af Amer 68 mL/min >60 [facility] Work Phone: [phone] Comment on above: Non- GFR Calc Platelets bldon 04-06-2022 Platelets (Bld) [#/Vol] 495 10*3/uL 150-450 [facility] Work Phone: [phone] Review by pathologiston 03-13 Pathologist review Franky (Unsp spec) [Interp] Zahraa waite [facility] Work Phone: [phone] Pathologist review Franky (Unsp spec) [Interp] Reviewed [facility] Work Phone: [phone] Comment on above: Previous reported re sult: Zahraa waite Edited by: RGOHEIDI on 04/07/22:1303Neutrophilic leukocytosis with left shift. Thrombocytosis.Clinical correlation necessary.Patrick Castellon M.D. 04/07/22 AMENDED REPORT 04/07/22 1303 PATH REV previously reported as: Zahraa waite Serum or plasma C reactive p rotein measurement (mass/volume)on 04-06-2022 CRP [Mass/Vol] 321.00 mg/L 0.0-3.0 [facility] Work Phone: Comment on above: C-Reactive Protein ( CRP) provides useful information for thediagnosis, therapy and monitoring of inflammatory processesand associated diseases. For the evaluation of Relative Riskfor Cardiovascular Disease, a High Sensitivity CRP (HSCRP)should be ordered. Serum or plasma acetone hussein urement (mass/volume)on 04-06-2022 Acetone [Mass/Vol] Negative NEG [facility] Work Phone: [phone] Serum or plasma calcium hussein urement (mass/volume)on 04-06-2022 Calcium [Mass/Vol] 9.7 mg/dL 8.5-10.1 [facility] Work Phone: [phone] Serum or plasma creatinine m easurement (mass/volume)on 04-06-2022 Creatinine [Mass/Vol] 1.01 mg/dL 0.55-1.02 [facility] Work Phone: Comment on above: The validity of the calculated GFR & GFRAA in patients over 70 years has not been determined. Clinical correlation is essential. Serum or plasma urea nitroge n measurement (mass/volume)on 04-06-2022 Urea nitrogen [Mass/Vol] 6 mg/dL 7-18 [facility] Work Phone: Thin prep Papanicolaou smear with manual screeningon 04-06-2022 Thin prep Papanicolaou smear with manual screening 11 5-15 [facility] Work Phone: Whole blood hemoglobin A1c/t otal hemoglobin ratio (mass fraction)on 04-06-2022 HbA1c (Bld) [Mass fraction] 10.0 % 3.8-5.6 [facility] Work Phone: Comment on above: Normal < 5.7 % Predi abetic 5.7 - 6.4 % Diabetic >or= 6.5 % Please note range changes. Absolute lymphocyte counton 04-05-2022 Lymphocytes Auto (Unsp spec) [#/Vol] 2.49 10*3/uL 0.83-4.51 [facility] Work Phone: Basophil percentageon 2021 Basophils/100 WBC (Bld) 0.2 % 0-1 [facility] Work Phone: Chloride [Moles/Vol] 93 mmol/L 98-107 [facility] Work Phone: Eosinophils/100 WBC (Bld) 0.2 % 0-5 [facility] Work Phone: Glucose [Mass/Vol] 389 mg/dL 74-106 [facility] Work Phone: Comment on above: Glucose result great er than or equal to 200 mg/dLsuggests DIABETES MELLITUS per A.D.A. criteria. Lactate [Moles/Vol] 2.5 mmol/L 0.4-2.0 [facility] Work Phone: Comment on above: Critical Result(s) C alled at: 13:33:37 04/05/2022 by: Gayathri Torres. Results read back by same. Neutrophils (Bld) [#/Vol] 13.7 10*3/uL 2.0-7.7 [facility] Work Phone: [phone] Neutrophils/100 WBC (Bld) 78.3 % 47-70 [facility] Work Phone: [phone] Potassium [Moles/Vol] 4.0 mmol/L 3.5-5.1 [facility] Work Phone: [phone] Sodium [Moles/Vol] 132 mmol/L 136-145 [facility]: [phone] WBC (Bld) [#/Vol] 17.5 10*3/uL 4.4-11.0 [facility] Work Phone: [phone] Blood erythrocytes count (nu mber/volume)on 04-05-2022 RBC (Bld) [#/Vol] 4.50 10*6/uL 4.2-5.4 [facility] Work Phone: Blood hemoglobin measurement (mass/volume)on 04-05-2022 Hemoglobin (Bld) [Mass/Vol] 12.7 g/dL 12.0-15.0 [facility] Work Phone: [phone] Blood lymphocytes/100 leukoc yteson 04-05-2022 Lymphocytes/100 WBC (Bld) 14.2 % 19-41 [facility] Work Phone: [phone] Blood monocytes/100 leukocyt eson 04-05-2022 Monocytes/100 WBC (Bld) 6.3 % 0-10 [facility] Work Phone: [phone] Blood platelet mean volumeon 04-05-2022 Platelet mean volume (Bld) [Entitic vol] 9.7 fL 6.2-12.0 [facility] Work Phone: Determination of erythrocyte mean corpuscular volume (MCV)on 09-25-2022 MCV (RBC) [Entitic vol] 82.2 fL 81-99 [facility] Work Phone: [phone] Hematocrit Auto (Bld) [Volum e fraction]on 04-05-2022 Hematocrit (Bld) [Volume fraction] 37.0 % 37-47 [facility] Work Phone: [phone] Laboratory - Chemistry and C hemistry - challengeon 04-05-2022 CO2 [Moles/Vol] 28.0 mmol/L 21.0-32.0 [facility] Work Phone: [phone] Urea nitrogen/Creatinine [Mass ratio] 8.5 mg/mg 10-20 [facility] Work Phone: [phone] Laboratory - Hematology and Cell countson 04-05-2022 Erythrocyte distribution width (RBC) [Entitic vol] 40.1 fL 35.1-43.9 [facility] Work Phone: [phone] Erythrocyte distribution width (RBC) [Ratio] 13.5 % 11.6-14.6 [facility] Work Phone: [phone] Immature granulocytes/100 WBC (Bld) 0.800 % 0.0-0.9 [facility] Work Phone: [phone] Comment on above: IG% - Immature Granu locytes (promyelocytes, myelocytes and metamyelocytes) > 1% indicates that a LEFT SHIFT is Present. MCH (RBC) [Entitic mass] 28.2 pg 27.0-32.0 [facility] Work Phone: [phone] Nucleated RBC/100 WBC (Bld) [Ratio] 0 % 0-5 [facility] Work Phone: [phone] MCHC Auto (RBC) [Mass/Vol]on 04-05-2022 MCHC (RBC) [Mass/Vol] 34.3 g/dL 32-36 [facility] Work [facility]: [phone] Panel Informationon 04-05 Estimated Creatinine Clearance Calc 92.78 ml/min [facility] Work Phone: [phone] Estimated GFR (MDRD) Amer 104 mL/min >60 [facility] Work Phone: Comment on above: GFR Calc Estimated GFR (MDRD) Non-Af Amer 86 mL/min >60 [facility] Work Phone: Comment on above: Non- GFR Calc Platelets bldon 04-05-2022 Platelets (Bld) [#/Vol] 444 10*3/uL 150-450 [facility] Work Phone: Serum or plasma calcium hussein urement (mass/volume)on 04-05-2022 Calcium [Mass/Vol] 9.2 mg/dL 8.5-10.1 [facility] Work Phone: Serum or plasma creatinine m easurement (mass/volume)on 04-05-2022 Creatinine [Mass/Vol] 0.83 mg/dL 0.55-1.02 [facility] Work Phone: Comment on above: The validity of the calculated GFR & GFRAA in patients over 70 years has not been determined. Clinical correlation is essential. Serum or plasma urea nitroge n measurement (mass/volume)on 04-05-2022 Urea nitrogen [Mass/Vol] 7 mg/dL 7-18 [facility] Work Phone: Thin prep Papanicolaou smear with manual screeningon 04-05-2022 Thin prep Papanicolaou smear with manual screening 11 5-15 [facility] Work Phone: XR CHEST 2V FRONTAL/LATon [facility] XR Chest PA and Lateralon IMPRESSION: Within normal limits. No acute radiographic abnormality. Neurology Stroke Physician: OLAG Transcribe Date/Time: Mar 23 2022 1:11P Dictated by : CINDY OBRIEN MD This examination was interpreted and the report reviewed and electronically signed by: CINDY OBRIEN MD on Mar 23 2022 1:14PM [facility] DIVISION OF RADIOLOGY * * *Final Report* [...] soft tissues: Unremarkable. DIVISION OF RADIOLOGY Provider, [facility] - 03/23/2022 * * *Final [...] Within normal limits. No acute radiographic abnormality. Neurology Stroke Physician: OLGA Transcribe Date/Time: Mar 23 2022 1:11P Dictated by : CINDY OBRIEN MD This examination was interpreted and the report reviewed and electronically signed by: CINDY OBRIEN MD on Mar 23 2022 1:14PM [facility] Radiology Study observation (narrative) Melissa gupta [facility] XR Chest PA and LateralOrder ed By: Cc Provider on 03-23-2022 [facility] Absolute lymphocyte counton 02-01-2022 Lymphocytes Auto (Unsp spec) [#/Vol] 3.62 10*3/uL 0.83-4.51 [facility] Work Phone: Basophil percentageon 2021 Basophil percentage 0-5 SEEN /hpf 0-5 [facility] Work Phone: Basophils/100 WBC (Bld) 0.3 % 0-1 [facility] Work Phone: Bilirubin [Mass/Vol] 0.40 mg/dL 0.20-1.00 [facility] Work Phone: Comment on above: For patients on eltr ombopag therapy, use of Dimension [place] TBIL is not recommended. Chloride [Moles/Vol] 98 mmol/L 98-107 [facility] Work Phone: [phone] Eosinophils/100 WBC (Bld) 0.5 % 0-5 [facility] Work Phone: [phone] Glucose [Mass/Vol] 334 mg/dL 74-106 [facility] Work Phone: [phone] Comment on above: Glucose result great er than or equal to 200 mg/dLsuggests DIABETES MELLITUS per A.D.A. criteria. Lactate [Moles/Vol] 2.5 mmol/L 0.4-2.0 [facility] Work Phone: Comment on above: Critical Result(s) C alled at: 13:53:33 02/01/2022 by: Gayathri Whiting to [place]. Results read back by same. Neutrophils (Bld) [#/Vol] 5.5 10*3/uL 2.0-7.7 [facility] Work Phone: Neutrophils/100 WBC (Bld) 54.6 % 47-70 [facility] Work Phone: Potassium [Moles/Vol] 3.2 mmol/L 3.5-5.1 [facility] Work Phone: [phone] Protein [Mass/Vol] 7.2 g/dL 6.4-8.2 [facility] Work Phone: [phone] Sodium [Moles/Vol] 131 mmol/L 136-145 [facility] Work Phone: [phone] WBC (Bld) [#/Vol] 10.1 10*3/uL 4.4-11.0 [facility] Work Phone: Beta hCG serum qualon 2021 Beta HCG ( test) Ql Negative [facility] Work Phone: Bilirubin Test strip Ql (U)o n 02-01-2022 Bilirubin Ql (U) Negative Negative [facility] Work Phone: Blood erythrocytes count (nu mber/volume)on 02-01-2022 RBC (Bld) [#/Vol] 4.45 10*6/uL 4.2-5.4 [facility] Work Phone: Blood hemoglobin measurement (mass/volume)on 02-01-2022 Hemoglobin (Bld) [Mass/Vol] 11.7 g/dL 12.0-15.0 [facility] Work Phone: Blood lymphocytes/100 leukoc yteson 02-01-2022 Lymphocytes/100 WBC (Bld) 35.9 % 19-41 [facility] Work Phone: Blood monocytes/100 leukocyt eson 02-01-2022 Monocytes/100 WBC (Bld) 7.8 % 0-10 [facility] Work Phone: Blood platelet mean volumeon 02-01-2022 Platelet mean volume (Bld) [Entitic vol] 9.7 fL 6.2-12.0 [facility] Work Phone: Determination of erythrocyte mean corpuscular volume (MCV)on 02-01-2022 MCV (RBC) [Entitic vol] 80.2 fL 81-99 [facility] Work Phone: Hematocrit Auto (Bld) [Volum e fraction]on 02-01-2022 Hematocrit (Bld) [Volume fraction] 35.7 % 37-47 [facility] Work Phone: Ketones Test strip Ql (U)on 02-01-2022 Ketones Ql (U) Negative Negative [facility] Work Phone: Laboratory - Chemistry and C hemistry - challengeon 02-01-2022 ALP [Catalytic activity/Vol] 79 U/L 45-117 [facility] Work Phone: ALT [Catalytic activity/Vol] 12 U/L 13-56 [facility] Work Phone: [phone] CO2 [Moles/Vol] 24.0 mmol/L 21.0-32.0 [facility] Work Phone: [phone] Globulin (S) [Mass/Vol] 4.5 g/dL 2.2-4.2 [facility] Work Phone: [phone] Lipase [Catalytic activity/Vol] 154 U/L 73-393 [facility] Work Phone: [phone] Urea nitrogen/Creatinine [Mass ratio] 6.9 mg/mg 10-20 [facility] Work Phone: [phone] Laboratory - Hematology and Cell countson 02-01-2022 Erythrocyte distribution width (RBC) [Entitic vol] 39.5 fL 35.1-43.9 [facility] Work Phone: [phone] Erythrocyte distribution width (RBC) [Ratio] 13.7 % 11.6-14.6 [facility] Work Phone: [phone] Immature granulocytes/100 WBC (Bld) 0.900 % 0.0-0.9 [facility] Work Phone: [phone] Comment on above: IG% - Immature Granu locytes (promyelocytes, myelocytes and metamyelocytes) > 1% indicates that a LEFT SHIFT is Present. MCH (RBC) [Entitic mass] 26.3 pg 27.0-32.0 [facility] Work Phone: Nucleated RBC/100 WBC (Bld) [Ratio] 0 % 0-5 [facility] Work Phone: [phone] MCHC Auto (RBC) [Mass/Vol]on 02-01-2022 MCHC (RBC) [Mass/Vol] 32.8 g/dL 32-36 [facility] Work Phone: [phone] Mucus LM Ql (Urine sed)on Mucus Ql (Urine sed) 0 SEEN /hpf [facility] Work Phone: [phone] Nitrite Test strip Ql (U)on 02-01-2022 Nitrite Ql (U) Negative Negative [facility] Work Phone: [phone] Panel Informationon 02-01 Estimated Creatinine Clearance Calc 75.50 ml/min [facility] Work Phone: Estimated GFR (MDRD) Amer 82 mL/min >60 [facility] Work Phone: Comment on above: GFR Calc Estimated GFR (MDRD) Non-Af Amer 68 mL/min >60 [facility] Work Phone: Comment on above: Non- GFR Calc Platelets bldon 02-01-2022 Platelets (Bld) [#/Vol] 368 10*3/uL 150-450 [facility] Work Phone: Protein Test strip Ql (U)on 02-01-2022 Protein Ql (U) 15 mg/dl Negative [facility] Work Phone: Serum or plasma albumin hussein urement (mass/volume)on 02-01-2022 Albumin [Mass/Vol] 2.7 g/dL 3.2-5.0 [facility] Work Phone: [phone] Serum or plasma albumin/glob ulin mass ratioon 02-01-2022 Albumin/Globulin [Mass ratio] 0.6 {ratio} 0.9-2.4 [facility] Work Phone: [phone] Serum or plasma calcium hussein urement (mass/volume)on 02-01-2022 Calcium [Mass/Vol] 8.7 mg/dL 8.5-10.1 [facility] Work Phone: [phone] Serum or plasma creatinine m easurement (mass/volume)on 02-01-2022 Creatinine [Mass/Vol] 1.02 mg/dL 0.55-1.02 [facility] Work Phone: Comment on above: The validity of the calculated GFR & GFRAA in patients over 70 years has not been determined. Clinical correlation is essential. Serum or plasma urea nitroge n measurement (mass/volume)on 02-01-2022 Urea nitrogen [Mass/Vol] 7 mg/dL 7-18 [facility] Work Phone: [phone] Squamous epithelial cells de tection in urine sediment by light microscopyon 02-01-2022 Epithelial cells.squamous LM Ql (Urine sed) 0-5 SEEN /hpf 5-10 [facility] Work Phone: Thin prep Papanicolaou smear with manual screeningon 02-01-2022 Thin prep Papanicolaou smear with manual screening 8 U/L 15-37 [facility] Work Phone: Thin prep Papanicolaou smear with manual screening 9 5-15 [facility] Work Phone: Urine blood detectionon 01-10 RBC Ql (U) 50 /ul Negative [facility] Work Phone: RBC Ql (U) 0-5 SEEN /hpf 0-5 [facility] Work Phone: Urine clarityon 02-01-2022 Clarity (U) Clear Clear [facility] Work Phone: Urine color determinationon 02-01-2022 Color (U) Yellow Yellow [facility] Work Phone: Urine glucose detectionon Glucose Ql (U) 1000 mg/dl Normal [facility] Work Phone: Urine leukocyte esterase det ection by dipstickon 02-01-2022 Leukocyte esterase Test strip Ql (U) 25 /ul Negative [facility] Work Phone: Urine pHon 02-01-2022 pH (U) 5.0 [pH] 5.0 - 8.0 [facility] Work Phone: Urine sediment bacteria coun t by microscopy (number/high power field)on 02-01-2022 Bacteria LM.HPF (Urine sed) [#/Area] 0 /[HPF] None Seen [facility] Work Phone: Urine specific gravity measu rementon 02-01-2022 Specific gravity (U) [Rel density] 1.020 1.002-1.030 [facility] Work Phone: Urobilinogen Auto test strip Ql (U)on 02-01-2022 Urobilinogen Ql (U) Normal mg/dl Normal [facility] Work Phone: [phone] Absolute lymphocyte counton 01-30-2022 Lymphocytes Auto (Unsp spec) [#/Vol] 5.16 10*3/uL 0.83-4.51 [facility] Work Phone: [phone] Albumin Elph [Mass/Vol]on Albumin [Mass/Vol] 3.6 g[facility]: [phone] Atypical perinuclear antineu trophil cytoplasmic antibodies measurementon 01-30-2022 Neutrophil cytoplasmic Ab.perinuclear.atypical IF (S) [Titer] <1:20 titer Neg:<1:20 [facility] Work Phone: [phone] Comment on above: The atypical pANCA p attern has been observed in asignificant percentage of patients with ulcerative colitis,primary sclerosing cholangitis and autoimmune hepatitis.Performed at: [facility] [employer] [id number] Director: Wade Lazo PhD, Phone: [phone] at: [facility] [address] [id number] Director: Philip Robles MD, Phone: [phone] Basophil percentageon 2021 Amylase [Catalytic activity/Vol] 19 U/L 25-115 [facility] Work Phone: [phone] Basophil percentage < 0.2 AI 0.0-0.9 [facility] Work Phone: [phone] Basophils/100 WBC (Bld) 0.3 % 0-1 [facility] Work Phone: [phone] Eosinophils/100 WBC (Bld) 0.5 % 0-5 [facility] Work Phone: [phone] Neutrophils (Bld) [#/Vol] 8.8 10*3/uL 2.0-7.7 [facility] Work Phone: Neutrophils/100 WBC (Bld) 57.5 % 47-70 [facility] Work Phone: [phone] WBC (Bld) [#/Vol] 15.3 10*3/uL 4.4-11.0 [facility] Work Phone: Blood erythrocytes count (nu mber/volume)on 01-30-2022 RBC (Bld) [#/Vol] 5.33 10*6/uL 4.2-5.4 [facility] Work Phone: Blood hemoglobin measurement (mass/volume)on 01-30-2022 Hemoglobin (Bld) [Mass/Vol] 13.9 g/dL 12.0-15.0 [facility] Work Phone: Blood lymphocytes/100 leukoc yteson 01-30-2022 Lymphocytes/100 WBC (Bld) 33.7 % 19-41 [facility] Work Phone: Blood manual differential co mment interpretation (narrative result)on 01-30-2022 Manual differential comment Franky (Bld) [Interp] SCANNED [facility] Work Phone: Comment on above: LYMPHOCYTOSIS NOTED Blood monocytes/100 leukocyt eson 01-30-2022 Monocytes/100 WBC (Bld) 7.2 % 0-10 [facility] Work Phone: Blood platelet mean volumeon 01-30-2022 Platelet mean volume (Bld) [Entitic vol] 9.5 fL 6.2-12.0 [facility] Work Phone: Determination of erythrocyte mean corpuscular volume (MCV)on 01-30-2022 MCV (RBC) [Entitic vol] 80.3 fL 81-99 [facility] Work Phone: Erythrocyte sedimentation ra abeba 01-30-2022 ESR (Bld) [Velocity] 81 mm/h 0-30 [facility] Work [facility]: Hematocrit Auto (Bld) [Volum e fraction]on 01-30-2022 Hematocrit (Bld) [Volume fraction] 42.8 % 37-47 [facility] Work Phone: Interpretation of serum or p lasma protein pattern by immunofixation (narrative resulton 01-30-2022 Protein Fractions Immunofixation Franky [Interp] See comment [facility] Work Phone: [phone] Comment on above: NOT OBSERVED Laboratory - Chemistry and C hemistry - challengeon 01-30-2022 Cobalamin (Vitamin B12) [Mass/Vol] 318 pg/mL 211-911 [facility] Work Phone: [phone] Lipase [Catalytic activity/Vol] 150 U/L 73-393 [facility] Work Phone: [phone] Laboratory - Hematology and Cell countson 01-30-2022 Erythrocyte distribution width (RBC) [Entitic vol] 40.0 fL 35.1-43.9 [facility] Work Phone: [phone] Erythrocyte distribution width (RBC) [Ratio] 14.0 % 11.6-14.6 [facility] Work Phone: [phone] Immature granulocytes/100 WBC (Bld) 0.800 % 0.0-0.9 [facility] Work Phone: [phone] Comment on above: IG% - Immature Granu locytes (promyelocytes, myelocytes and metamyelocytes) > 1% indicates that a LEFT SHIFT is Present. MCH (RBC) [Entitic mass] 26.1 pg 27.0-32.0 [facility] Work Phone: [phone] Nucleated RBC/100 WBC (Bld) [Ratio] 0 % 0-5 [facility] Work Phone: [phone] MCHC Auto (RBC) [Mass/Vol]on 01-30-2022 MCHC (RBC) [Mass/Vol] 32.5 g/dL 32-36 [facility] Work Phone: [phone] Panel Informationon 01-30 Addendum Document Comment . [facility] Work Phone: [phone] Comment on above: Protein electrophore sis scan will follow via computer,mail, or project construction assistant manager delivery. Centromere B Antibody <0.2 AI 0.0-0.9 [facility] Work Phone: [phone] Endomysial IgA Antibody Negative Negative [facility] Work Phone: [phone] Immunoglobulin E 119 IU/mL 6-495 [facility] Work Phone: VALIDATION ANALYST Antibody <0.2 AI 0.0-0.9 [facility] Work Phone: [phone] Thyroid Stimulating Hormone (TSH) 2.21 uIU/mL 0.358-3.74 [facility] Work Phone: Platelets bldon 01-30-2022 Platelets (Bld) [#/Vol] 484 10*3/uL 150-450 [facility] Work Phone: Serum DNA double strand anti body assay (units/volume)on 01-30-2022 DNA double strand Ab Qn (S) [IU]/mL 0-9 [facility] Work Phone: [phone] Comment on above: Negative <5 Equivoca l 5 - 9 Positive >9 Serum Neva-1 antibody assay (u nits/volume)on 01-30-2022 Neva-1 extractable nuclear Ab Qn (S) <0.2 AI 0.0-0.9 [facility] Work Phone: [phone] Scl-70 extractable nuc lear antibody assay (units/volume)on 01-30-2022 SCL-70 extractable nuclear Ab Qn (S) <0.2 AI 0.0-0.9 [facility] Work Phone: [phone] Jang extractable nucl ear antibody detectionon 01-30-2022 Jang extractable nuclear Ab Ql (S) <0.2 AI 0.0-0.9 [facility] Work Phone: [phone] Serum hazuf-0-zqspqbtt measu rement by electrophoresison 01-30-2022 Alpha 1 globulin Elph [Mass/Vol] 0.2 g/dL 0.0-0.4 [facility] Work Phone: [phone] Alpha 1 globulin Elph [Mass/Vol] 1.6 g/dL 0.4-1.0 [facility] Work Phone: [phone] Serum classic neutrophil cyt oplasmic antibody assay (units/volume)on 01-30-2022 Neutrophil cytoplasmic Ab.classic Qn (S) 1:80 titer Neg:<1:20 [facility] Work Phone: Serum globulin measurement ( mass/volume)on 01-30-2022 Globulin (S) [Mass/Vol] 4.8 g/dL 2.2-3.9 [facility] Work Phone: Serum or plasma C reactive p rotein measurement (mass/volume)on 01-30-2022 CRP [Mass/Vol] 53.10 mg/L 0.0-3.0 [facility] Work Phone: Comment on above: C-Reactive Protein ( CRP) provides useful information for thediagnosis, therapy and monitoring of inflammatory processesand associated diseases. For the evaluation of Relative Riskfor Cardiovascular Disease, a High Sensitivity CRP (HSCRP)should be ordered. Serum or plasma IgA measurem ent (mass/volume)on 01-30-2022 IgA [Mass/Vol] 478 mg/dL 87-352 [facility] Work Phone: Serum or plasma IgG measurem ent (mass/volume)on 01-30-2022 IgG [Mass/Vol] 1630 mg/dL [phone] [facility] Work Phone: Serum or plasma IgM measurem ent (mass/volume)on 01-30-2022 IgM [Mass/Vol] 294 mg/dL 26-217 [facility] Work Phone: Serum or plasma beta globuli n measurement by electrophoresis (mass/volume)on 01-30-2022 Beta globulin Elph [Mass/Vol] 1.0 g/dL 0.7-1.3 [facility] Work Phone: Serum or plasma folate measu rement (mass/volume)on 01-30-2022 Folate [Mass/Vol] 13.50 ng/mL 3.1-55.4 [facility] Work Phone: Serum or plasma gamma globul in measurement by electrophoresis (mass/volume)on 01-30-2022 Gamma globulin Elph [Mass/Vol] 1.9 g/dL 0.4-1.8 [facility] Work Phone: Serum or plasma immunoelectr ophoresis interpretation (nominal result)on 01-30-2022 Interpretation IEP [Interp] Comment . [facility] Work Phone: Comment on above: No monoclonality det ected. Serum perinuclear neutrophil cytoplasmic antibody titer by immunofluorescenceon 01-30-2022 Neutrophil cytoplasmic Ab.perinuclear IF (S) [Titer] <1:20 titer Neg:<1:20 [facility] Work Phone: Comment on above: The presence of posi tive fluorescence exhibiting P-ANCA orC-ANCA patterns alone is not specific for the diagnosis ofWegener's Granulomatosis (WG) or microscopic polyangiitis.Decisions about treatment should not be based solely onANCA IFA results. The [employer] Consensusrecommends follow up testing of positive sera with both SD-3 and MPO-ANCA enzyme immunoassays. As many as 5% serumsamples are positive only by EIA. Ref. AM J Clin [id number];111:507-513. Serum tissue transglutaminas e IgA antibody assay (units/volume)on 01-30-2022 tTG IgA Qn (S) <2 U/mL 0-3 [facility] Work Phone: Comment on above: Negative 0 - 3 Weak Positive 4 - 10 Positive >10 Tissue Transglutaminase (tTG) has been identified as the endomysial antigen. Studies have demonstr- ated that endomysial IgA antibodies have over 99% specificity for gluten sensitive enteropathy. Thin prep Papanicolaou smear with manual screeningon 01-30-2022 Thin prep Papanicolaou smear with manual screening 153 U/L 84-246 [facility] Work Phone: [phone] Thin prep Papanicolaou smear with manual screening 0.8 0.7-1.7 [facility] Work Phone: [phone] Total protein bloodon 2021 Protein [Mass/Vol] 8.4 g/dL 6.0-8.5 [facility] Work Phone: [phone] Whole blood hemoglobin A1c/t otal hemoglobin ratio (mass fraction)on 01-30-2022 HbA1c (Bld) [Mass fraction] 11.4 % 3.8-5.6 [facility] Work Phone: Comment on above: Normal < 5.7 % Predi abetic 5.7 - 6.4 % Diabetic >or= 6.5 % Please note range changes. Absolute lymphocyte counton 01-26-2022 Lymphocytes Auto (Unsp spec) [#/Vol] 4.70 10*3/uL 0.83-4.51 [facility] Work Phone: Basophil percentageon 2021 Basophils/100 WBC (Bld) 0.4 % 0-1 [facility] Work Phone: Bilirubin [Mass/Vol] 0.40 mg/dL 0.20-1.00 [facility] Work Phone: Comment on above: For patients on eltr ombopag therapy, use of Dimension [place] TBIL is not recommended. Chloride [Moles/Vol] 101 mmol/L 98-107 [facility] Work Phone: Eosinophils/100 WBC (Bld) 0.2 % 0-5 [facility] Work Phone: Glucose [Mass/Vol] 320 mg/dL 74-106 [facility] Work Phone: Comment on above: Glucose result great er than or equal to 200 mg/dLsuggests DIABETES MELLITUS per A.D.A. criteria. Neutrophils (Bld) [#/Vol] 5.6 10*3/uL 2.0-7.7 [facility] Work Phone: Neutrophils/100 WBC (Bld) 50.6 % 47-70 [facility] Work Phone: Potassium [Moles/Vol] 3.6 mmol/L 3.5-5.1 [facility] Work Phone: Protein [Mass/Vol] 8.5 g/dL 6.4-8.2 [facility] Work Phone: Sodium [Moles/Vol] 136 mmol/L 136-145 [facility] Work Phone: [phone] WBC (Bld) [#/Vol] 11.1 10*3/uL 4.4-11.0 [facility] Work Phone: Blood erythrocytes count (nu mber/volume)on 01-26-2022 RBC (Bld) [#/Vol] 4.99 10*6/uL 4.2-5.4 [facility] Work Phone: Blood hemoglobin measurement (mass/volume)on 01-26-2022 Hemoglobin (Bld) [Mass/Vol] 12.9 g/dL 12.0-15.0 [facility] Work Phone: [phone] Blood lymphocytes/100 leukoc yteson 01-26-2022 Lymphocytes/100 WBC (Bld) 42.2 % 19-41 [facility] Work Phone: [phone] Blood monocytes/100 leukocyt eson 01-26-2022 Monocytes/100 WBC (Bld) 5.9 % 0-10 [facility] Work Phone: [phone] Blood platelet mean volumeon 01-26-2022 Platelet mean volume (Bld) [Entitic vol] 9.5 fL 6.2-12.0 [facility] Work Phone: Determination of erythrocyte mean corpuscular volume (MCV)on 01-26-2022 MCV (RBC) [Entitic vol] 77.8 fL 81-99 [facility] Work Phone: Hematocrit Auto (Bld) [Volum e fraction]on 01-26-2022 Hematocrit (Bld) [Volume fraction] 38.8 % 37-47 [facility] Work Phone: [phone] Laboratory - Chemistry and C hemistry - challengeon 01-26-2022 ALP [Catalytic activity/Vol] 85 U/L 45-117 [facility] Work Phone: [phone] ALT [Catalytic activity/Vol] 14 U/L 13-56 [facility] Work Phone: [phone] CO2 [Moles/Vol] 26.0 mmol/L 21.0-32.0 [facility] Work Phone: Globulin (S) [Mass/Vol] 5.3 g/dL 2.2-4.2 [facility] Work Phone: [phone] Lipase [Catalytic activity/Vol] 179 U/L 73-393 [facility] Work Phone: [phone] Urea nitrogen/Creatinine [Mass ratio] 13.1 mg/mg 10-20 [facility] Work Phone: [phone] Laboratory - Hematology and Cell countson 01-26-2022 Erythrocyte distribution width (RBC) [Entitic vol] 37.9 fL 35.1-43.9 [facility] Work Phone: [phone] Erythrocyte distribution width (RBC) [Ratio] 13.8 % 11.6-14.6 [facility] Work Phone: [phone] Immature granulocytes/100 WBC (Bld) 0.700 % 0.0-0.9 [facility] Work Phone: [phone] Comment on above: IG% - Immature Granu locytes (promyelocytes, myelocytes and metamyelocytes) > 1% indicates that a LEFT SHIFT is Present. MCH (RBC) [Entitic mass] 25.9 pg 27.0-32.0 [facility] Work Phone: [phone] Nucleated RBC/100 WBC (Bld) [Ratio] 0 % 0-5 [facility] [facility] Work Phone: [phone] MCHC Auto (RBC) [Mass/Vol]on 01-26-2022 MCHC (RBC) [Mass/Vol] 33.2 g/dL 32-36 [facility]: [phone] Panel Informationon 01-26 Estimated Creatinine Clearance Calc 84.46 ml/min [facility] Work Phone: [phone] Estimated GFR (MDRD) Amer 92 mL/min >60 [facility] Work Phone: [phone] Comment on above: GFR Calc Estimated GFR (MDRD) Non-Af Amer 76 mL/min >60 [facility] Work Phone: [phone] Comment on above: Non- GFR Calc Platelets bldon 01-26-2022 Platelets (Bld) [#/Vol] 474 10*3/uL 150-450 [facility] Work Phone: Serum or plasma albumin hussein urement (mass/volume)on 01-26-2022 Albumin [Mass/Vol] 3.2 g/dL 3.2-5.0 [facility] Work Phone: [phone] Serum or plasma albumin/glob ulin mass ratioon 01-26-2022 Albumin/Globulin [Mass ratio] 0.6 {ratio} 0.9-2.4 [facility] Work Phone: [phone] Serum or plasma calcium hussein urement (mass/volume)on 01-26-2022 Calcium [Mass/Vol] 9.3 mg/dL 8.5-10.1 [facility] Work Phone: Serum or plasma creatinine m easurement (mass/volume)on 01-26-2022 Creatinine [Mass/Vol] 0.92 mg/dL 0.55-1.02 [facility] Work Phone: Comment on above: The validity of the calculated GFR & GFRAA in patients over 70 years has not been determined. Clinical correlation is essential. Serum or plasma urea nitroge n measurement (mass/volume)on 01-26-2022 Urea nitrogen [Mass/Vol] 12 mg/dL 7-18 [facility] Work Phone: Thin prep Papanicolaou smear with manual screeningon 01-26-2022 Thin prep Papanicolaou smear with manual screening 7 U/L 15-37 [facility] Work Phone: [phone] Thin prep Papanicolaou smear with manual screening 9 5-15 [facility] Work Phone: Absolute lymphocyte counton 01-23-2022 Lymphocytes Auto (Unsp spec) [#/Vol] 3.74 10*3/uL 0.83-4.51 [facility] Work Phone: Basophil percentageon 2021 Basophils/100 WBC (Bld) 0.4 % 0-1 [facility] Work Phone: [phone] Chloride [Moles/Vol] 97 mmol/L 98-107 [facility] Work Phone: Eosinophils/100 WBC (Bld) 0.4 % 0-5 [facility] Work Phone: Glucose [Mass/Vol] 362 mg/dL 74-106 [facility] Work Phone: Comment on above: Glucose result great er than or equal to 200 mg/dLsuggests DIABETES MELLITUS per A.D.A. criteria. Neutrophils (Bld) [#/Vol] 5.3 10*3/uL 2.0-7.7 [facility] Work Phone: Neutrophils/100 WBC (Bld) 53.8 % 47-70 [facility] Work Phone: Potassium [Moles/Vol] 4.0 mmol/L 3.5-5.1 [facility] Work Phone: Sodium [Moles/Vol] 131 mmol/L 136-145 [facility] Work Phone: WBC (Bld) [#/Vol] 9.8 10*3/uL 4.4-11.0 [facility] Work Phone: Blood erythrocytes count (nu mber/volume)on 01-23-2022 RBC (Bld) [#/Vol] 5.18 10*6/uL 4.2-5.4 [facility] Work Phone: Blood hemoglobin measurement (mass/volume)on 01-23-2022 Hemoglobin (Bld) [Mass/Vol] 13.4 g/dL 12.0-15.0 [facility] Work Phone: Blood lymphocytes/100 leukoc yteson 01-23-2022 Lymphocytes/100 WBC (Bld) 38.3 % 19-41 [facility] Work Phone: Blood monocytes/100 leukocyt eson 01-23-2022 Monocytes/100 WBC (Bld) 6.3 % 0-10 [facility] Work Phone: Blood platelet mean volumeon 01-23-2022 Platelet mean volume (Bld) [Entitic vol] 9.2 fL 6.2-12.0 [facility] Work Phone: [phone] Determination of erythrocyte mean corpuscular volume (MCV)on 01-23-2022 MCV (RBC) [Entitic vol] 78.2 fL 81-99 [facility] Work Phone: [phone] Hematocrit Auto (Bld) [Volum e fraction]on 01-23-2022 Hematocrit (Bld) [Volume fraction] 40.5 % 37-47 [facility] Work Phone: [phone] Laboratory - Chemistry and C hemistry - challengeon 01-23-2022 CO2 [Moles/Vol] 24.0 mmol/L 21.0-32.0 [facility] Work Phone: [phone] Urea nitrogen/Creatinine [Mass ratio] 17.3 mg/mg 10-20 [facility] Work Phone: [phone] Laboratory - Hematology and Cell countson 01-23-2022 Erythrocyte distribution width (RBC) [Entitic vol] 38.2 fL 35.1-43.9 [facility] Work Phone: [phone] Erythrocyte distribution width (RBC) [Ratio] 13.5 % 11.6-14.6 [facility] Work Phone: [phone] Immature granulocytes/100 WBC (Bld) 0.800 % 0.0-0.9 [facility] Work Phone: [phone] Comment on above: IG% - Immature Granu locytes (promyelocytes, myelocytes and metamyelocytes) > 1% indicates that a LEFT SHIFT is Present. MCH (RBC) [Entitic mass] 25.9 pg 27.0-32.0 [facility] Work Phone: [phone] Nucleated RBC/100 WBC (Bld) [Ratio] 0 % 0-5 [facility] Work Phone: [phone] MCHC Auto (RBC) [Mass/Vol]on 01-23-2022 MCHC (RBC) [Mass/Vol] 33.1 g/dL 32-36 [facility] Work Phone: [phone] Panel Informationon 01-23 Estimated Creatinine Clearance Calc 79.29 ml/min [facility] Work Phone: Estimated GFR (MDRD) Amer 85 mL/min >60 [facility] Work Phone: Comment on above: GFR Calc Estimated GFR (MDRD) Non-Af Amer 70 mL/min >60 [facility] Work Phone: Comment on above: Non- GFR Calc Platelets bldon 01-23-2022 Platelets (Bld) [#/Vol] 470 10*3/uL 150-450 [facility] Work Phone: Serum or plasma calcium hussein urement (mass/volume)on 01-23-2022 Calcium [Mass/Vol] 9.6 mg/dL 8.5-10.1 [facility] Work Phone: Serum or plasma creatinine m easurement (mass/volume)on 01-23-2022 Creatinine [Mass/Vol] 0.98 mg/dL 0.55-1.02 [facility] Work Phone: Comment on above: The validity of the calculated GFR & GFRAA in patients over 70 years has not been determined. Clinical correlation is essential. Serum or plasma urea nitroge n measurement (mass/volume)on 01-23-2022 Urea nitrogen [Mass/Vol] 17 mg/dL 7-18 [facility] Work Phone: Thin prep Papanicolaou smear with manual screeningon 01-23-2022 Thin prep Papanicolaou smear with manual screening 10 -15 [facility] Work Phone: Glucose Glucometer (BldC) [M ass/Vol]on 01-22-2022 Glucose [Mass/Vol] 320 mg/dL 74-106 [facility] Work Phone: Comment on above: MANAGEMENT OF PATIEN T CARE PER NURSING PROTOCOL Glucose Glucometer (BldC) [M ass/Vol]on 01-16-2022 Glucose [Mass/Vol] 440 mg/dL 74-106 [facility] Work Phone: Comment on above: MANAGEMENT OF PATIEN T CARE PER NURSING PROTOCOL Absolute lymphocyte counton 11-16-2021 Lymphocytes Auto (Unsp spec) [#/Vol] 2.57 10*3/uL 0.83-4.51 [facility] Work Phone: Basophil percentageon 2021 Basophils/100 WBC (Bld) 0.4 % 0-1 [facility] Work Phone: Bilirubin [Mass/Vol] 0.50 mg/dL 0.20-1.00 [facility] Work Phone: Comment on above: For patients on eltr ombopag therapy, use of Dimension [place] TBIL is not recommended. Chloride [Moles/Vol] 99 mmol/L 98-107 [facility] Work Phone: Eosinophils/100 WBC (Bld) 0.6 % 0-5 [facility] Work Phone: Glucose [Mass/Vol] 331 mg/dL 74-106 [facility] Work Phone: Comment on above: Glucose result great er than or equal to 200 mg/dLsuggests DIABETES MELLITUS per A.D.A. criteria. Neutrophils (Bld) [#/Vol] 7.4 10*3/uL 2.0-7.7 [facility] Work Phone: Neutrophils/100 WBC (Bld) 68.0 % 47-70 [facility] Work Phone: Potassium [Moles/Vol] 4.1 mmol/L 3.5-5.1 [facility] Work Phone: Protein [Mass/Vol] 8.7 g/dL 6.4-8.2 [facility] Work Phone: Sodium [Moles/Vol] 133 mmol/L 136-145 [facility] Work Phone: WBC (Bld) [#/Vol] 10.9 10*3/uL 4.4-11.0 [facility] Work Phone: Blood erythrocytes count (nu mber/volume)on 11-16-2021 RBC (Bld) [#/Vol] 4.48 10*6/uL 4.2-5.4 [facility] Work Phone: [phone] Blood hemoglobin measurement (mass/volume)on 11-16-2021 Hemoglobin (Bld) [Mass/Vol] 11.9 g/dL 12.0-15.0 [facility] Work Phone: Blood lymphocytes/100 leukoc yteson 11-16-2021 Lymphocytes/100 WBC (Bld) 23.5 % 19-41 [facility] Work Phone: Blood monocytes/100 leukocyt eson 11-16-2021 Monocytes/100 WBC (Bld) 6.7 % 0-10 [facility] Work Phone: Blood platelet mean volumeon 11-16-2021 Platelet mean volume (Bld) [Entitic vol] 9.2 fL 6.2-12.0 [facility] Work Phone: Determination of erythrocyte mean corpuscular volume (MCV)on 11-16-2021 MCV (RBC) [Entitic vol] 81.9 fL 81-99 [facility] Work Phone: Hematocrit Auto (Bld) [Volum e fraction]on 11-16-2021 Hematocrit (Bld) [Volume fraction] 36.7 % 37-47 [facility] Work Phone: [phone] Laboratory - Chemistry and C hemistry - challengeon 11-16-2021 ALP [Catalytic activity/Vol] 130 U/L 45-117 [facility] Work Phone: ALT [Catalytic activity/Vol] 12 U/L 13-56 [facility] Work Phone: [phone] CO2 [Moles/Vol] 27.0 mmol/L 21.0-32.0 [facility] Work Phone: Globulin (S) [Mass/Vol] 6.0 g/dL 2.2-4.2 [facility] Work Phone: [phone] Urea nitrogen/Creatinine [Mass ratio] 10.7 mg/mg 10-20 [facility] Work Phone: [phone] Laboratory - Hematology and Cell countson 11-16-2021 Erythrocyte distribution width (RBC) [Entitic vol] 38.0 fL 35.1-43.9 [facility] Work Phone: [phone] Erythrocyte distribution width (RBC) [Ratio] 12.7 % 11.6-14.6 [facility] Work Phone: [phone] Immature granulocytes/100 WBC (Bld) 0.800 % 0.0-0.9 [facility] Work Phone: [phone] Comment on above: IG% - Immature Granu locytes (promyelocytes, myelocytes and metamyelocytes) > 1% indicates that a LEFT SHIFT is Present. MCH (RBC) [Entitic mass] 26.6 pg 27.0-32.0 [facility] Work Phone: [phone] Nucleated RBC/100 WBC (Bld) [Ratio] 0 % 0-5 [facility] Work Phone: [phone] MCHC Auto (RBC) [Mass/Vol]on 11-16-2021 MCHC (RBC) [Mass/Vol] 32.4 g/dL 32-36 [facility] Work Phone: No Panel Informationon 11-16 Estimated Creatinine Clearance Calc 103.61 ml/min [facility] Work Phone: [phone] Estimated GFR (MDRD) Amer 117 mL/min >60 [facility] Work Phone: [phone] Comment on above: GFR Calc Estimated GFR (MDRD) Non-Af Amer 96 mL/min >60 [facility] Work Phone: [phone] Comment on above: Non- GFR Calc Platelets bldon 11-16-2021 Platelets (Bld) [#/Vol] 471 10*3/uL 150-450 [facility] Work Phone: [phone] Serum or plasma albumin hussein urement (mass/volume)on 11-16-2021 Albumin [Mass/Vol] 2.7 g/dL 3.2-5.0 [facility] Work Phone: [phone] Serum or plasma albumin/glob ulin mass ratioon 11-16-2021 Albumin/Globulin [Mass ratio] 0.4 {ratio} 0.9-2.4 [facility] Work Phone: [phone] Serum or plasma calcium hussein urement (mass/volume)on 11-16-2021 Calcium [Mass/Vol] 8.9 mg/dL 8.5-10.1 [facility] Work Phone: [phone] Serum or plasma creatinine m easurement (mass/volume)on 11-16-2021 Creatinine [Mass/Vol] 0.75 mg/dL 0.55-1.02 [facility] Work Phone: [phone] Comment on above: The validity of the calculated GFR & GFRAA in patients over 70 years has not been determined. Clinical correlation is essential. Serum or plasma urea nitroge n measurement (mass/volume)on 11-16-2021 Urea nitrogen [Mass/Vol] 8 mg/dL 7-18 [facility] Work Phone: [phone] Thin prep Papanicolaou smear with manual screeningon 11-16-2021 Thin prep Papanicolaou smear with manual screening 6 U/L 15-37 [facility] Work Phone: [phone] Thin prep Papanicolaou smear with manual screening 7 5-15 [facility] Work Phone: [phone] Absolute lymphocyte counton 10-29-2021 Lymphocytes Auto (Unsp spec) [#/Vol] 2.98 10*3/uL 0.83-4.51 [facility] Work Phone: [phone] Basophil percentageon 2021 Basophils/100 WBC (Bld) 0.5 % 0-1 [facility] Work Phone: [phone] Bilirubin [Mass/Vol] 0.30 mg/dL 0.20-1.00 [facility] Work Phone: [phone] Comment on above: For patients on eltr ombopag therapy, use of Dimension [place] TBIL is not recommended. Chloride [Moles/Vol] 99 mmol/L 98-107 [facility] Work Phone: [phone] Eosinophils/100 WBC (Bld) 0.2 % 0-5 [facility] Work Phone: Glucose [Mass/Vol] 387 mg/dL 74-106 [facility] Work Phone: Comment on above: Glucose result great er than or equal to 200 mg/dLsuggests DIABETES MELLITUS per A.D.A. criteria. Neutrophils (Bld) [#/Vol] 9.2 10*3/uL 2.0-7.7 [facility] Work Phone: Neutrophils/100 WBC (Bld) 70.3 % 47-70 [facility] Work Phone: Potassium [Moles/Vol] 4.4 mmol/L 3.5-5.1 [facility] Work Phone: Protein [Mass/Vol] 9.0 g/dL 6.4-8.2 [facility] Work Phone: Sodium [Moles/Vol] 130 mmol/L 136-145 [facility] Work Phone: WBC (Bld) [#/Vol] 13.0 10*3/uL 4.4-11.0 [facility] Work [facility]: Blood erythrocytes count (nu mber/volume)on 10-29-2021 RBC (Bld) [#/Vol] 4.95 10*6/uL 4.2-5.4 [facility] Work Phone: Blood hemoglobin measurement (mass/volume)on 10-29-2021 Hemoglobin (Bld) [Mass/Vol] 13.3 g/dL 12.0-15.0 [facility] Work Phone: Blood lymphocytes/100 leukoc yteson 10-29-2021 Lymphocytes/100 WBC (Bld) 22.9 % 19-41 [facility] Work Phone: Blood monocytes/100 leukocyt eson 10-29-2021 Monocytes/100 WBC (Bld) 5.3 % 0-10 [facility] Work Phone: Blood platelet mean volumeon 10-29-2021 Platelet mean volume (Bld) [Entitic vol] 9.0 fL 6.2-12.0 [facility] Work Phone: [phone] Determination of erythrocyte mean corpuscular volume (MCV)on 10-29-2021 MCV (RBC) [Entitic vol] 80.0 fL 81-99 [facility] Work Phone: [phone] Hematocrit Auto (Bld) [Volum e fraction]on 10-29-2021 Hematocrit (Bld) [Volume fraction] 39.6 % 37-47 [facility] Work Phone: [phone] Laboratory - Chemistry and C hemistry - challengeon 10-29-2021 ALP [Catalytic activity/Vol] 156 U/L 45-117 [facility] Work Phone: [phone] ALT [Catalytic activity/Vol] 23 U/L 13-56 [facility] Work Phone: [phone] CO2 [Moles/Vol] 25.0 mmol/L 21.0-32.0 [facility] Work Phone: [phone] Globulin (S) [Mass/Vol] 5.9 g/dL 2.2-4.2 [facility] Work Phone: [phone] Urea nitrogen/Creatinine [Mass ratio] 13.8 mg/mg 10-20 [facility] Work Phone: [phone] Laboratory - Hematology and Cell countson 10-29-2021 Erythrocyte distribution width (RBC) [Entitic vol] 37.2 fL 35.1-43.9 [facility] Work Phone: [phone] Erythrocyte distribution width (RBC) [Ratio] 13.1 % 11.6-14.6 [facility] Work Phone: [phone] Immature granulocytes/100 WBC (Bld) 0.800 % 0.0-0.9 [facility] Work Phone: [phone] Comment on above: IG% - Immature Granu locytes (promyelocytes, myelocytes and metamyelocytes) > 1% indicates that a LEFT SHIFT is Present. MCH (RBC) [Entitic mass] 26.9 pg 27.0-32.0 [facility] Work Phone: Nucleated RBC/100 WBC (Bld) [Ratio] 0 % 0-5 [facility] Work Phone: MCHC Auto (RBC) [Mass/Vol]on 10-29-2021 MCHC (RBC) [Mass/Vol] 33.6 g/dL 32-36 [facility] Work Phone: No Panel Informationon 10-29 Estimated Creatinine Clearance Calc 89.32 ml/min [facility] Work Phone: [phone] Estimated GFR (MDRD) Amer 99 mL/min >60 [facility] Work Phone: Comment on above: GFR Calc Estimated GFR (MDRD) Non-Af Amer 82 mL/min >60 [facility] Work Phone: Comment on above: Non- GFR Calc Platelets bldon 10-29-2021 Platelets (Bld) [#/Vol] 460 10*3/uL 150-450 [facility] Work Phone: Serum or plasma albumin hussein urement (mass/volume)on 10-29-2021 Albumin [Mass/Vol] 3.1 g/dL 3.2-5.0 [facility] Work Phone: Serum or plasma albumin/glob ulin mass ratioon 10-29-2021 Albumin/Globulin [Mass ratio] 0.5 {ratio} 0.9-2.4 [facility] Work Phone: [phone] Serum or plasma calcium hussein urement (mass/volume)on 10-29-2021 Calcium [Mass/Vol] 9.0 mg/dL 8.5-10.1 [facility] Work Phone: [phone] Serum or plasma choriogonado tropin detectionon 10-29-2021 HCG ( test) Ql < 1 mIU/mL <4 [facility] Work Phone: [phone] Comment on above: hCG levels with Gest ational AgeGestational Age hCG mIU/mL (IU/L)0.2 - 1 week 5 - 501-2 weeks 50 - 5002-3 weeks 100 - 80492-4 weeks 500 - 583783-2 weeks 1000 - 055995-1 weeks 39724 - 100,0006-8 weeks 60600 - 200,0002-3 months 75257 - 100,000 Serum or plasma creatinine m easurement (mass/volume)on 10-29-2021 Creatinine [Mass/Vol] 0.87 mg/dL 0.55-1.02 [facility] Work Phone: Comment on above: The validity of the calculated GFR & GFRAA in patients over 70 years has not been determined. Clinical correlation is essential. Serum or plasma urea nitroge n measurement (mass/volume)on 10-29-2021 Urea nitrogen [Mass/Vol] 12 mg/dL 7-18 [facility] Work Phone: Thin prep Papanicolaou smear with manual screeningon 10-29-2021 Thin prep Papanicolaou smear with manual screening 13 U/L 15-37 [facility] Work Phone: Thin prep Papanicolaou smear with manual screening 6 5-15 [facility] Work Phone: Absolute lymphocyte counton 08-10-2021 Lymphocytes Auto (Unsp spec) [#/Vol] 0.86 10*3/uL 0.83-4.51 [facility] Work Phone: Basophil percentageon 2021 Basophil percentage 5-10 SEEN /hpf [facility] Work Phone: Basophils/100 WBC (Bld) 0.2 % 0-1 [facility] Work Phone: Chloride [Moles/Vol] 100 mmol/L 98-107 [facility] Work Phone: Eosinophils/100 WBC (Bld) 0.3 % 0-5 [facility] Work Phone: Glucose [Mass/Vol] 406 mg/dL 74-106 [facility] Work Phone: Comment on above: Glucose result great er than or equal to 200 mg/dLsuggests DIABETES MELLITUS per A.D.A. criteria. Neutrophils (Bld) [#/Vol] 12.4 10*3/uL 2.0-7.7 [facility] Work Phone: Neutrophils/100 WBC (Bld) 89.0 % 47-70 [facility] Work Phone: [phone] Potassium [Moles/Vol] 4.2 mmol/L 3.5-5.1 [place] [facility] Work Phone: [phone] Sodium [Moles/Vol] 134 mmol/L 136-145 [facility]: WBC (Bld) [#/Vol] 14.0 10*3/uL 4.4-11.0 [facility] Work Phone: Beta hCG serum qualon 2021 Beta HCG ( test) Ql Negative [facility] Work Phone: [phone] Bilirubin Test strip Ql (U)o n 08-10-2021 Bilirubin Ql (U) Negative Negative [facility] Work Phone: Blood erythrocytes count (nu mber/volume)on 08-10-2021 RBC (Bld) [#/Vol] 5.34 10*6/uL 4.2-5.4 [facility] Work Phone: [phone] Blood hemoglobin measurement (mass/volume)on 08-10-2021 Hemoglobin (Bld) [Mass/Vol] 14.7 g/dL 12.0-15.0 [facility] Work Phone: Blood lymphocytes/100 leukoc yteson 08-10-2021 Lymphocytes/100 WBC (Bld) 6.1 % 19-41 [facility] Work Phone: Blood monocytes/100 leukocyt eson 08-10-2021 Monocytes/100 WBC (Bld) 4.0 % 0-10 [facility] Work Phone: Blood platelet mean volumeon 08-10-2021 Platelet mean volume (Bld) [Entitic vol] 9.6 fL 6.2-12.0 [facility] Work Phone: Determination of erythrocyte mean corpuscular volume (MCV)on 08-10-2021 MCV (RBC) [Entitic vol] 82.4 fL 81-99 [facility] Work Phone: [phone] Glucose Glucometer (BldC) [M ass/Vol]on 08-10-2021 Glucose [Mass/Vol] 377 mg/dL 70-110 [facility] Work Phone: [phone] Comment on above: MANAGEMENT OF PATIEN T CARE PER NURSING PROTOCOL Hematocrit Auto (Bld) [Volum e fraction]on 08-10-2021 Hematocrit (Bld) [Volume fraction] 44.0 % 37-47 [facility] Work Phone: [phone] Ketones Test strip Ql (U)on 08-10-2021 Ketones Ql (U) 150 mg/dl Negative [facility] Work Phone: [phone] Comment on above: CRITICAL VALUE *HCRI TICAL VALUE VERIFIED. CALLED TO Rafa PERAZA RN (ED)08/10/21 [id number].RESULTS READ BACK BY SAME . Laboratory - Chemistry and C hemistry - challengeon 08-10-2021 CO2 [Moles/Vol] 23.0 mmol/L 21.0-32.0 [facility] Work Phone: [phone] Urea nitrogen/Creatinine [Mass ratio] 18.6 mg/mg 10-20 [facility] Work Phone: [phone] Laboratory - Hematology and Cell countson 08-10-2021 Erythrocyte distribution width (RBC) [Entitic vol] 39.0 fL 35.1-43.9 [facility] Work Phone: [phone] Erythrocyte distribution width (RBC) [Ratio] 13.1 % 11.6-14.6 [facility] Work Phone: [phone] Immature granulocytes/100 WBC (Bld) 0.400 % 0.0-0.9 [facility] Work Phone: [phone] Comment on above: IG% - Immature Granu locytes (promyelocytes, myelocytes and metamyelocytes) > 1% indicates that a LEFT SHIFT is Present. MCH (RBC) [Entitic mass] 27.5 pg 27.0-32.0 [facility] Work Phone: Nucleated RBC/100 WBC (Bld) [Ratio] 0 % 0-5 [facility] Work Phone: [phone] MCHC Auto (RBC) [Mass/Vol]on 08-10-2021 MCHC (RBC) [Mass/Vol] 33.4 g/dL 32-36 [facility] Work Phone: [phone] Mucus LM Ql (Urine sed)on Mucus Ql (Urine sed) 0 SEEN /hpf [facility] Work Phone: [phone] Nitrite Test strip Ql (U)on 08-10-2021 Nitrite Ql (U) Negative Negative [facility] Work Phone: [phone] Panel Informationon 08-10 Estimated Creatinine Clearance Calc 90.36 ml/min [facility] Work Phone: [phone] Estimated GFR (MDRD) Amer 100 mL/min >60 [facility] Work Phone: [phone] Comment on above: GFR Calc Estimated GFR (MDRD) Non-Af Amer 83 mL/min >60 [facility] Work Phone: [phone] Comment on above: Non- GFR Calc Platelets bldon 08-10-2021 Platelets (Bld) [#/Vol] 343 10*3/uL 150-450 [facility] Work Phone: [phone] Protein Test strip Ql (U)on 08-10-2021 Protein Ql (U) 30 mg/dl Negative [facility] Work Phone: [phone] Serum or plasma calcium hussein urement (mass/volume)on 08-10-2021 Calcium [Mass/Vol] 8.8 mg/dL 8.5-10.1 [facility] Work Phone: [phone] Serum or plasma creatinine m easurement (mass/volume)on 08-10-2021 Creatinine [Mass/Vol] 0.86 mg/dL 0.55-1.02 [facility] Work Phone: [phone] Comment on above: The validity of the calculated GFR & GFRAA in patients over 70 years has not been determined. Clinical correlation is essential. Serum or plasma urea nitroge n measurement (mass/volume)on 08-10-2021 Urea nitrogen [Mass/Vol] 16 mg/dL 7-18 [facility] Work Phone: [phone] Squamous epithelial cells de tection in urine sediment by light microscopyon 08-10-2021 Epithelial cells.squamous LM Ql (Urine sed) 0-5 SEEN /hpf [facility] Work Phone: [phone] Thin prep Papanicolaou smear with manual screeningon 08-10-2021 Thin prep Papanicolaou smear with manual screening 11 5-15 [facility] Work Phone: [phone] Urine blood detectionon 07-14 RBC Ql (U) 250 /ul Negative [facility] Work Phone: [phone] RBC Ql (U) > 100 SEEN /hpf [facility] Work Phone: [phone] Urine clarityon 08-10-2021 Clarity (U) Cloudy Clear [facility] Work Phone: Urine color determinationon 08-10-2021 Color (U) Yellow Yellow [facility] Work Phone: Urine glucose detectionon Glucose Ql (U) 1000 mg/dl Normal [facility] Work Phone: [phone] Urine leukocyte esterase det ection by dipstickon 08-10-2021 Leukocyte esterase Test strip Ql (U) 25 /ul Negative [facility] Work Phone: [phone] Urine pHon 08-10-2021 pH (U) 7.0 [pH] [facility] Work Phone: [phone] Urine sediment bacteria coun t by microscopy (number/high power field)on 08-10-2021 Bacteria LM.HPF (Urine sed) [#/Area] 1 /[HPF] None Seen [facility] Work Phone: Urine specific gravity measu rementon 08-10-2021 Specific gravity (U) [Rel density] 1.005 [facility] Work Phone: [phone] Urobilinogen Auto test strip Ql (U)on 08-10-2021 Urobilinogen Ql (U) 1 mg/dl Normal [facility] Work Phone: XR Chest PA and Lateralon IMPRESSION: No acute radiographic abnormality. Neurology Stroke Physician: OLGA Transcribe Date/Time: May 15 2021 10:07A Dictated by : ELISEO LYON MD This examination was interpreted and the report reviewed and electronically signed by: ELISEO LYON MD on May 15 2021 10:08AM [facility] DIVISION OF RADIOLOGY * * *Final Report* [...] soft tissues: Unremarkable. DIVISION OF RADIOLOGY Provider, [facility] - 05/15/2021 * * *Final Report* * [...] Unremarkable. IMPRESSION IMPRESSION: No acute radiographic abnormality. Neurology Stroke Physician: OLGA Transcribe Date/Time: May 15 2021 10:07A Dictated by : ELISEO LYON MD This examination was interpreted and the report reviewed and electronically signed by: ELISEO LYON MD on May 15 2021 10:08AM EST [facility] Radiology Study observation (narrative) Melissa gupta [facility] XR Chest PA and LateralOrder ed By: [facility] Provider on 05-15-2021 [facility] Anaerobic culture Bacteria identified Anaer cx Nom (Unsp spec) No anaerobic bacteria isolated. [facility] Work Phone: Bacteria identified Anaer cx Nom (Unsp spec) Anaerobic microbial culture No anaerobic bacteria isolated. [facility] Work Phone: Bacteria identified Cx Nom ( Wound) Wound Culture Meth. resistant Stap h. aureus [facility] Work Phone: [phone] Wound Culture Streptococcus agalactiae (B) [facility] Work Phone: COVID-19 virus antigen assay SARS-CoV-2 (COVID-19) Ag IA.rapid Ql (Resp) [facility] Work Phone: Culture, urine Bacteria identified Cx Nom (U) Culture exhibits no growth. [facility] Work Phone: Gram stain for investigation of transfusion reaction Microscopic observation Gram stain Nom (Unsp spec) [facility] Work Phone: Laboratory - Microbiology an d Antimicrobial susceptibility Bacteria identified Cx Nom (Bld) No growth in 5 days. [facility] Work Phone: Routine wound culture Bacteria identified Cx Nom (Wound) No growth aerobically. [facility] Work Phone: Vital Signs Date Time Vital Sign Value Performing Clinician Facility 12-31-2024 08:00-0400 Body temperature 98.2 [degF] Amy Solorzano NP-C Work Phone: [facility] 12-31-2024 08:00-0400 Diastolic blood pressure 81 mm[Hg] Amy Solorzano NP-C Work Phone: [facility] 12-31-2024 08:00-0400 Heart rate 73 /min Amy Solorzano NP-C Work Phone: [facility] 12-31-2024 08:00-0400 Respiratory rate 23 /min Amy Solorzano NP-C Work Phone: 0([phone])994-255438 [address] 12-31-2024 08:00-0400 SaO2% (BldA) [Mass fraction] 98 % Amy Solorzano JOB L[employer]OGR[employer]HER-C Work Phone: 1(627)102-068678 [place] [address] 12-31-2024 08:00-0400 Systolic blood pressure 123 mm[Hg] Amy Solorzano JOB LITHOGRAPHER-C Work Phone: 2(983)190-369578 [place] [address] 12-31-2024 05:29-0400 Body mass index (BMI) [Ratio] 39.2 kg/m2 Amypalma Solorzano JOB LITHOGRAPHER-C Work Phone: 2(436)959-049378 [place] [address] 12-31-2024 05:29-0400 Body weight 110.1 kg Amy Solorzano JOB LITHOGRAPHER-C Work Phone: 9(314)712-513378 [place] [address] 12-30-2024 13:37-0400 Body height 167.64 cm Amy Solorzano JOB LITHOGRAPHER-C Work Phone: 5(053)426-[address] [place] [address] 12-30-2024 12:35-0400 Body temperature 97.4 [degF] Amy Solorzano JOB LITHOGRAPHER-C Work Phone: 3(611)414-074478 [place] [address] 12-30-2024 12:35-0400 Diastolic blood pressure 93 mm[Hg] Amy Solorzano JOB LITHOGRAPHER-C Work Phone: 2(635)841-648678 [place] [address] 12-30-2024 12:35-0400 Heart rate 94 /min Amy Solorzano JOB L[employer]OGRAPHER-C Work Phone: 4(779)415-786878 [place] [address] 12-30-2024 12:35-0400 Respiratory rate 18 /min Amy Solorzano JOB L[employer]OGR[employer]HER[employer] Work Phone: 5(612)349-763978 [place] [address] 12-30-2024 12:35-0400 SaO2% (BldA) [Mass fraction] 96 % Amy Solorzano JOB LITHOGRAPHER-C Work Phone: 2(433)892-154878 [place] [address] 12-30-2024 12:35-0400 Systolic blood pressure 126 mm[Hg] Amy Solorzano JOB LITHOGRAPHER-C Work Phone: 0(242)385-798378 [place] [address] 12-30-2024 10:25-0400 Body height 167.64 cm Amy Solorzano JOB LITHOGRAPHER-C Work Phone: 0(072)115-686578 [place] [address] 12-30-2024 10:25-0400 Body mass index (BMI) [Ratio] 37.7 kg/m2 Amy Solorzano JOB LITHOGRAPHER-C Work Phone: 4(320)248-425078 [place] [address] 12-30-2024 10:25-0400 Body weight 106 kg Amy Solorzano JOB LITHOGRAPHER-C Work Phone: 6(351)487-995678 [place] [address] 12-13-2024 08:30-0400 Body height 167.64 cm Amy Solorzano JOB LITHOGRAPHER-C Work Phone: 0(662)018-941778 [place] [address] 12-13-2024 08:30-0400 Body mass index (BMI) [Ratio] 39.2 kg/m2 Amy Solorzano JOB LITHOGRAPHER-C Work Phone: 6(005)385-247178 [place] [address] 12-13-2024 08:30-0400 Body weight 110.22 kg Amy Solorzano JOB LITHOGRAPHER-C Work Phone: 5(988)058-840878 [place] [address] 12-13-2024 08:30-0400 Diastolic blood pressure 97 mm[Hg] Amy Solorzano JOB L[employer]OGRAPHER-C Work Phone: 8(350)465-836878 [place] [address] 12-13-2024 08:30-0400 Heart rate 93 /min Amy Solorzano JOB LITHOGRAPHER[employer] Work Phone: 2(233)863-094578 [place] [address] 12-13-2024 08:30-0400 Respiratory rate 19 /min Amy Solorzano JOB LITHOGRAPHER-C Work Phone: 9(808)930-591778 [place] [address] 12-13-2024 08:30-0400 SaO2% (BldA) [Mass fraction] 97 % Amy Solorzano JOB LITHOGRAPHER-C Work Phone: 1(454)924-173878 [place] [address] 12-13-2024 08:30-0400 Systolic blood pressure 138 mm[Hg] Amy Solorzano JOB LITHOGRAPHER-C Work Phone: 7(455)945-632478 [place] [address] 11-28-2024 13:00-0400 Body temperature 98 [degF] Amy Solorzano JOB LITHOGRAPHER-C Work Phone: 4(852)801-930778 [place] [address] 11-28-2024 13:00-0400 Diastolic blood pressure 96 mm[Hg] Amy Solorzano JOB LITHOGRAPHER-C Work Phone: 9(260)075-782078 [place] [address] 11-28-2024 13:00-0400 Heart rate 60 /min Amy Solorzano JOB LITHOGRAPHER-C Work Phone: 6(577)434-498578 [place] [address] 11-28-2024 13:00-0400 SaO2% (BldA) [Mass fraction] 99 % Amy Solorzano JOB LITHOGRAPHER-C Work Phone: 7(865)248-913778 [place] [address] 11-28-2024 13:00-0400 Systolic blood pressure 156 mm[Hg] Amy Solorzano JOB LITHOGRAPHER-C Work Phone: 7(102)441-575578 [place] [address] 11-28-2024 08:25-0400 Body temperature 98.1 [degF] Amy Solorzano JOB L[employer]OGRAPHER-C Work Phone: 1(776)841-588078 [place] [address] 11-28-2024 08:25-0400 Diastolic blood pressure 84 mm[Hg] Amy Solorzano JOB L[employer]OGRAPHER-C Work Phone: 8(353)159-584178 [place] [address] 11-28-2024 08:25-0400 Heart rate 75 /min Amy Solorzano JOB LITHOGRAPHER-C Work Phone: 7(553)814-527778 [place] [address] 11-28-2024 08:25-0400 Respiratory rate 18 /min Amy Solorzano JOB LITHOGRAPHER-C Work Phone: 2(210)403-463778 [place] [address] 11-28-2024 08:25-0400 SaO2% (BldA) [Mass fraction] 97 % Amy Solorzano JOB L[employer]OGRAPHER-C Work Phone: 1(243)864-945478 [place] [address] 11-28-2024 08:25-0400 Systolic blood pressure 154 mm[Hg] Amy Solorzano JOB LITHOGRAPHER-C Work Phone: 2(417)376-643278 [place] [address] 11-27-2024 13:47-0400 Body height 167.64 cm Amy Solorzano JOB LITHOGRAPHER-C Work Phone: 6(629)126-883678 [place] [address] 11-27-2024 13:47-0400 Body weight 110.7 kg Amy Solorzano JOB LITHOGRAPHER-C Work Phone: 7(804)930-333378 [place] [address] 11-25-2024 14:54-0400 Body mass index (BMI) [Ratio] 39.4 kg/m2 Amy Solorzano JOB LITHOGRAPHER-C Work Phone: 3(385)697-543678 [place] [address] 11-25-2024 14:00-0400 Diastolic blood pressure 91 mm[Hg] Amy Solorzano JOB LITHOGRAPHER-C Work Phone: 0(921)669-057070 [place] [address] 11-25-2024 14:00-0400 Heart rate 91 /min Amy Solorzano JOB LITHOGRAPHER-C Work Phone: 9(683)278-386170 [place] [address] 11-25-2024 14:00-0400 Respiratory rate 18 /min Amy Solorzano JOB LITHOGRAPHER-C Work Phone: 3(101)520-909578 [place] [address] 11-25-2024 14:00-0400 SaO2% (BldA) [Mass fraction] 95 % Amy Solorzano JOB LITHOGRAPHER-C Work Phone: 3(586)189-066078 [place] [address] 11-25-2024 14:00-0400 Systolic blood pressure 129 mm[Hg] Amy Rashad JOB LITHOGRAPHER-C Work Phone: 6(834)288-792778 [place] [address] 11-25-2024 11:00-0400 Body temperature 97.6 [degF] Amy Rashad JOB LITHOGRAPHER-C Work Phone: 4(404)318-203278 [place] [address] 11-25-2024 08:48-0400 Body height 167.64 cm Amy Solorzano JOB LITHOGRAPHER-C Work Phone: 4(472)549-696578 [place] [address] 11-25-2024 08:48-0400 Body mass index (BMI) [Ratio] 40.9 kg/m2 Amy Solorzano JOB LITHOGRAPHER-C Work Phone: 3(544)820-254578 [place] [address] 11-25-2024 08:48-0400 Body weight 115.03 kg Amy Rashad JOB LITHOGRAPHER-C Work Phone: 1(220)660-809738 [address] 07-03-2024 12:26-0500 Body mass index (BMI) [Ratio] 40.02 kg/m2 Krislyn Aberegg PA Work Phone: [facility] 07-03-2024 12:26-0500 Body temperature 97 [degF] Krislyn Aberegg PA Work Phone: [facility] 07-03-2024 12:26-0500 Body weight 115.9 kg Krislyn Aberegg PA Work Phone: [facility] 07-03-2024 12:26-0500 Diastolic blood pressure 90 mm[Hg] Krislyn Aberegg PA Work Phone: [facility] 07-03-2024 12:26-0500 Heart rate 104 /min Krislyn Aberegg PA Work Phone: [facility] 07-03-2024 12:26-0500 Respiratory rate 16 /min Krislyn Aberegg PA Work Phone: [facility] 07-03-2024 12:26-0500 SaO2% (BldA) [Mass fraction] 100 % Krislyn Aberegg PA Work Phone: [facility] 07-03-2024 12:26-0500 Systolic blood pressure 122 mm[Hg] Krislyn Aberegg PA Work Phone: [facility] 06-26-2024 10:36-0500 Body mass index (BMI) [Ratio] 39.95 kg/m2 Frantz Clutter PA-C Work Phone: [facility] 06-26-2024 10:36-0500 Body temperature 97.39 [degF] Frantz Clutter PA-C Work Phone: [facility] 06-26-2024 10:36-0500 Body weight 115.7 kg Frantz Clutter PA-C Work Phone: [facility] 06-26-2024 10:36-0500 Diastolic blood pressure 78 mm[Hg] Frantz Clutter PA-C Work Phone: [facility] 06-26-2024 10:36-0500 Heart rate 117 /min Frantz Clutter PA-C Work Phone: [facility] 06-26-2024 10:36-0500 Respiratory rate 18 /min Frantz Clutter PA-C Work Phone: [facility] 06-26-2024 10:36-0500 SaO2% (BldA) [Mass fraction] 97 % Frantz Clutter PA-C Work Phone: [facility] 06-26-2024 10:36-0500 Systolic blood pressure 122 mm[Hg] Frantz Arevalo PA-C Work Phone: [facility] 07-23-2023 11:30-0500 Body temperature 96.9 [degF] No Primary Care Physician [facility] 07-23-2023 11:30-0500 Diastolic blood pressure 82 mm[Hg] No Primary Care Physician [facility] 07-23-2023 11:30-0500 Heart rate 80 /min No Primary Care Physician [facility] 07-23-2023 11:30-0500 Respiratory rate 16 /min No Primary Care Physician [facility] 07-23-2023 11:30-0500 SaO2% (BldA) [Mass fraction] 99 % No Primary Care Physician [facility] 07-23-2023 11:30-0500 Systolic blood pressure 117 mm[Hg] No Primary Care Physician [facility] 07-23-2023 11:05-0500 Inhaled oxygen flow rate 4 L/min No Primary Care Physician [facility] 07-23-2023 08:34-0500 Body height 167.64 cm No Primary Care Physician [facility] 07-23-2023 08:34-0500 Body mass index (BMI) [Ratio] 32.5 kg/m2 No Primary Care Physician [facility] 07-23-2023 08:34-0500 Body weight 91.62 kg No Primary Care Physician [facility] 07-12-2023 10:13-0500 Body mass index (BMI) [Ratio] 32.1 kg/m2 No Primary Care Physician [facility] 07-12-2023 10:13-0500 Body temperature 98.2 [degF] No Primary Care Physician [facility] 07-12-2023 10:13-0500 Body weight 90.4 kg No Primary Care Physician [facility] 07-12-2023 10:13-0500 Diastolic blood pressure 90 mm[Hg] No Primary Care Physician [facility] 07-12-2023 10:13-0500 Heart rate 98 /min No Primary Care Physician [facility] 07-12-2023 10:13-0500 Respiratory rate 14 /min No Primary Care Physician [facility] 07-12-2023 10:13-0500 SaO2% (BldA) [Mass fraction] 100 % No Primary Care Physician [facility] 07-12-2023 10:13-0500 Systolic blood pressure 124 mm[Hg] No Primary Care Physician [facility] 07-02-2023 09:17-0500 Diastolic blood pressure 94 mm[Hg] No Primary Care Physician [facility] 07-02-2023 09:17-0500 Systolic blood pressure 142 mm[Hg] No Primary Care Physician [facility] 07-02-2023 09:14-0500 Body height 167.64 cm No Primary Care Physician [facility] 07-02-2023 09:14-0500 Body temperature 96.4 [degF] No Primary Care Physician [facility] 07-02-2023 09:14-0500 Heart rate 100 /min No Primary Care Physician [facility] 07-02-2023 09:14-0500 Respiratory rate 16 /min No Primary Care Physician [facility] 07-02-2023 09:14-0500 SaO2% (BldA) [Mass fraction] 100 % No Primary Care Physician [facility] 07-01-2023 10:07-0500 Body temperature 97 [degF] Andres Pendlejosé luis [employer] ELECT[employer]ICIAN[employer] Work Phone: [facility] 07-01-2023 10:07-0500 Body weight 93.44 kg Andres Mpjosé luis STAGE ELECTRICIAN[employer] Work Phone: [facility] 07-01-2023 10:07-0500 Diastolic blood pressure 82 mm[Hg] Andres Pendlebury STAGE ELECTRICIAN[employer] Work Phone: [facility] 07-01-2023 10:07-0500 Heart rate 91 /min Andres Pendlebury STAGE ELECTRICIAN.[employer] Work Phone: [facility] 07-01-2023 10:07-0500 Respiratory rate 18 /min Andres Pendlebury STAGE ELECTRICIAN[employer] Work Phone: [facility] 07-01-2023 10:07-0500 SaO2% (BldA) [Mass fraction] 100 % Andres Pendlebury STAGE ELECTRICIAN[employer] Work Phone: [facility] 07-01-2023 10:07-0500 Systolic blood pressure 117 mm[Hg] Andres Anastacia MRATINEZKIER PLEATER Work Phone: [facility] 06-30-2023 13:41-0500 Heart rate 72 /min No Primary Care Physician [facility] 06-30-2023 13:41-0500 Respiratory rate 16 /min No Primary Care Physician [facility] 06-30-2023 13:41-0500 SaO2% (BldA) [Mass fraction] 98 % No Primary Care Physician [facility] 06-30-2023 09:24-0500 Body mass index (BMI) [Ratio] 34 kg/m2 No Primary Care Physician [facility] 06-30-2023 09:24-0500 Body weight 95.7 kg No Primary Care Physician [facility] 06-30-2023 08:22-0500 Body temperature 98 [degF] No Primary Care Physician [facility] 06-30-2023 08:22-0500 Diastolic blood pressure 110 mm[Hg] No Primary Care Physician [facility] 06-30-2023 08:22-0500 Systolic blood pressure 170 mm[Hg] No Primary Care Physician [facility] 06-28-2023 09:17-0500 Body height 167.64 cm No Primary Care Physician [facility] 06-28-2023 09:17-0500 Body mass index (BMI) [Ratio] 33.6 kg/m2 No Primary Care Physician [facility] 06-28-2023 09:17-0500 Body temperature 98.2 [degF] No Primary Care Physician [facility] 06-28-2023 09:17-0500 Body weight 94.5 kg No Primary Care Physician [facility] 06-28-2023 09:17-0500 Diastolic blood pressure 105 mm[Hg] No Primary Care Physician [facility] 06-28-2023 09:17-0500 Heart rate 82 /min No Primary Care Physician [facility] 06-28-2023 09:17-0500 Respiratory rate 14 /min No Primary Care Physician [facility] 06-28-2023 09:17-0500 SaO2% (BldA) [Mass fraction] 99 % No Primary Care Physician [facility] 06-28-2023 09:17-0500 Systolic blood pressure 154 mm[Hg] No Primary Care Physician [facility] 06-27-2023 05:50-0500 Body height 167.64 cm No Primary Care Physician [facility] 06-27-2023 05:50-0500 Body mass index (BMI) [Ratio] 34 kg/m2 No Primary Care Physician [facility] 06-27-2023 05:50-0500 Body temperature 98.6 [degF] No Primary Care Physician [facility] 06-27-2023 05:50-0500 Body weight 95.7 kg No Primary Care Physician [facility] 06-27-2023 05:50-0500 Diastolic blood pressure 98 mm[Hg] No Primary Care Physician [facility] 06-27-2023 05:50-0500 Heart rate 85 /min No Primary Care Physician [facility] 06-27-2023 05:50-0500 Respiratory rate 16 /min No Primary Care Physician [facility] 06-27-2023 05:50-0500 SaO2% (BldA) [Mass fraction] 99 % No Primary Care Physician [facility] 06-27-2023 05:50-0500 Systolic blood pressure 163 mm[Hg] No Primary Care Physician [facility] 06-26-2023 17:04-0500 Heart rate 74 /min No Primary Care Physician [facility] 06-26-2023 17:04-0500 Respiratory rate 18 /min No Primary Care Physician [facility] 06-26-2023 17:04-0500 SaO2% (BldA) [Mass fraction] 97 % No Primary Care Physician [facility] 06-26-2023 11:30-0500 Body height 167.64 cm No Primary Care Physician [facility] 06-26-2023 11:30-0500 Body mass index (BMI) [Ratio] 34.1 kg/m2 No Primary Care Physician [facility] 06-26-2023 11:30-0500 Body temperature 97 [degF] No Primary Care Physician [facility] 06-26-2023 11:30-0500 Body weight 95.98 kg No Primary Care Physician [facility] 06-26-2023 11:30-0500 Diastolic blood pressure 120 mm[Hg] No Primary Care Physician [facility] 06-26-2023 11:30-0500 Systolic blood pressure 135 mm[Hg] No Primary Care Physician [facility] 06-25-2023 12:33-0500 Diastolic blood pressure 69 mm[Hg] No Primary Care Physician [facility] 06-25-2023 12:33-0500 Heart rate 82 /min No Primary Care Physician [facility] 06-25-2023 12:33-0500 Respiratory rate 16 /min No Primary Care Physician [facility] 06-25-2023 12:33-0500 SaO2% (BldA) [Mass fraction] 100 % No Primary Care Physician [facility] 06-25-2023 12:33-0500 Systolic blood pressure 124 mm[Hg] No Primary Care Physician [facility] 06-25-2023 09:27-0500 Body height 168 cm No Primary Care Physician [facility] 06-25-2023 09:27-0500 Body mass index (BMI) [Ratio] 32.1 kg/m2 No Primary Care Physician [facility] 06-25-2023 09:27-0500 Body temperature 96.5 [degF] No Primary Care Physician [facility] 06-25-2023 09:27-0500 Body weight 90.71 kg No Primary Care Physician [facility] 05-09-2023 14:02-0400 Body temperature 98.4 [degF] No Primary Care Physician [facility] 05-09-2023 14:02-0400 Diastolic blood pressure 102 mm[Hg] No Primary Care Physician [facility] 05-09-2023 14:02-0400 Heart rate 74 /min No Primary Care Physician [facility] 05-09-2023 14:02-0400 Respiratory rate 18 /min No Primary Care Physician [facility] 05-09-2023 14:02-0400 SaO2% (BldA) [Mass fraction] 100 % No Primary Care Physician [facility] 05-09-2023 14:02-0400 Systolic blood pressure 177 mm[Hg] No Primary Care Physician [facility] 05-09-2023 13:32-0400 Body temperature 98.4 [degF] [facility] Work Phone: [facility] 05-09-2023 13:32-0400 Diastolic blood pressure 121 mm[Hg] [facility] Work Phone: 1(104)578-[address] [place] [address] 05-09-2023 13:32-0400 Heart rate 74 /min [facility] Work Phone: 2(990)401-507878 [place] [address] 05-09-2023 13:32-0400 Respiratory rate 18 /min [facility] Work Phone: 4(187)612-344978 [place] [address] 05-09-2023 13:32-0400 SaO2% (BldA) [Mass fraction] 100 % [facility] Work Phone: 6(099)317-465678 [place] [address] 05-09-2023 13:32-0400 Systolic blood pressure 177 mm[Hg] [facility] Work Phone: 1(648)907-582078 [place] [address] 05-07-2023 11:35-0400 Body height 167.64 cm [facility] Work Phone: 6(849)817-988378 [place] [address] 05-07-2023 11:35-0400 Body mass index (BMI) [Ratio] 33.5 kg/m2 [facility] Work Phone: 2(314)168-230078 [place] [address] 05-07-2023 11:35-0400 Body weight 94.2 kg [facility] Work Phone: 9(358)513-814178 [place] [address] 05-04-2023 15:23-0400 Body height 167.64 cm [facility] Work Phone: 7(541)948-623778 [place] [address] 05-04-2023 15:23-0400 Body mass index (BMI) [Ratio] 33.5 kg/m2 [facility] Work Phone: 8(740)554-384278 [place] [address] 05-04-2023 15:23-0400 Body temperature 97.4 [degF] [facility] Work Phone: 3(625)929-777478 [place] [address] 05-04-2023 15:23-0400 Body weight 94.2 kg [facility] Work Phone: 4(983)996-861378 [place] [address] 05-04-2023 15:23-0400 Diastolic blood pressure 69 mm[Hg] [facility] Work Phone: 5(105)321-438178 [place] [address] 05-04-2023 15:23-0400 Heart rate 84 /min [facility] Work Phone: 2(675)642-329078 [place] [address] 05-04-2023 15:23-0400 Inhaled oxygen flow rate 96 L/min [facility] Work Phone: 5(618)373-184078 [place] [address] 05-04-2023 15:23-0400 Respiratory rate 16 /min [facility] Work Phone: 4(550)103-445878 [place] [address] 05-04-2023 15:23-0400 Systolic blood pressure 134 mm[Hg] [facility] Work Phone: 3(180)316-568878 [place] [address] 05-04-2023 14:51-0400 SaO2% (BldA) [Mass fraction] 97 % [facility] Work Phone: 3(158)788-898078 [place] [address] 04-15-2023 13:43-0400 Diastolic blood pressure 58 mm[Hg] [facility] Work Phone: 9(099)687-452878 [place] [address] 04-15-2023 13:43-0400 Heart rate 72 /min [facility] Work Phone: 3(155)648-980178 [place] [address] 04-15-2023 13:43-0400 Respiratory rate 16 /min [facility] Work Phone: 7(501)445-717978 [place] [address] 04-15-2023 13:43-0400 SaO2% (BldA) [Mass fraction] 99 % [facility] Work Phone: 0(995)647-615478 [place] [address] 04-15-2023 13:43-0400 Systolic blood pressure 122 mm[Hg] [facility] Work Phone: 0(115)258-040278 [place] [address] 04-15-2023 11:17-0400 Body mass index (BMI) [Ratio] 29.3 kg/m2 [facility] Work Phone: 3(453)521-031378 [place] [address] 04-15-2023 11:17-0400 Body temperature 97 [degF] [facility] Work Phone: 2(439)711-651778 [place] [address] 04-15-2023 11:17-0400 Body weight 82.4 kg [facility] Work Phone: 8(650)358-157178 [place] [address] 04-14-2023 11:51-0400 Body mass index (BMI) [Ratio] 32.3 kg/m2 [facility] Work Phone: 0(628)476-272878 [address] [place] [address] 04-14-2023 11:51-0400 Body temperature 97.2 [degF] [facility] Work Phone: 3(362)010-024678 [place] [address] 04-14-2023 11:51-0400 Body weight 90.71 kg [facility] Work Phone: 5(088)661-283878 [place] [address] 04-14-2023 11:51-0400 Diastolic blood pressure 92 mm[Hg] [facility] Work Phone: 2(794)245-688478 [place] [address] 04-14-2023 11:51-0400 Heart rate 102 /min [facility] Work Phone: 7(608)606-426778 [place] [address] 04-14-2023 11:51-0400 Respiratory rate 24 /min [facility] Work Phone: 2(167)384-347878 [place] [address] 04-14-2023 11:51-0400 SaO2% (BldA) [Mass fraction] 100 % [facility] Work Phone: 8(806)201-329778 [place] [address] 04-14-2023 11:51-0400 Systolic blood pressure 131 mm[Hg] [facility] Work Phone: 2(236)137-857378 [place] [address] 04-13-2023 10:36-0400 Diastolic blood pressure 78 mm[Hg] [facility] Work Phone: 8(389)798-364778 [place] [address] 04-13-2023 10:36-0400 Heart rate 64 /min [facility] Work Phone: 5(683)215-005378 [place] [address] 04-13-2023 10:36-0400 Respiratory rate 14 /min [facility] Work Phone: 9(707)158-869478 [place] [address] 04-13-2023 10:36-0400 SaO2% (BldA) [Mass fraction] 98 % [facility] Work Phone: 0(276)080-943778 [place] [address] 04-13-2023 10:36-0400 Systolic blood pressure 108 mm[Hg] [facility] Work Phone: 7(081)475-808778 [place] [address] 04-13-2023 08:59-0400 Body mass index (BMI) [Ratio] 32.3 kg/m2 [facility] Work Phone: 0(465)806-738878 [place] [address] 04-13-2023 08:59-0400 Body temperature 95.9 [degF] [facility] Work Phone: 7(952)509-711678 [place] [address] 04-13-2023 08:59-0400 Body weight 90.71 kg [facility] Work Phone: 5(633)025-394178 [place] [address] 03-06-2023 08:15-0400 Body height 167.64 cm [facility] Work Phone: 0(708)604-694578 [place] [address] 03-06-2023 08:15-0400 Body mass index (BMI) [Ratio] 32.5 kg/m2 [facility] Work Phone: 7(208)830-658378 [place] [address] 03-06-2023 08:15-0400 Body temperature 97 [degF] [facility] Work Phone: 4(268)000-193678 [place] [address] 03-06-2023 08:15-0400 Body weight 91.3 kg [facility] Work Phone: 1(241)006-435978 [place] [address] 03-06-2023 08:15-0400 Diastolic blood pressure 113 mm[Hg] [facility] Work Phone: 4(788)263-487178 [place] [address] 03-06-2023 08:15-0400 Heart rate 100 /min [facility] Work Phone: 4(073)701-466678 [place] [address] 03-06-2023 08:15-0400 Respiratory rate 14 /min [facility] Work Phone: 0(795)746-529778 [place] [address] 03-06-2023 08:15-0400 SaO2% (BldA) [Mass fraction] 100 % [facility] Work Phone: 7(542)432-341678 [place] [address] 03-06-2023 08:15-0400 Systolic blood pressure 153 mm[Hg] [facility] Work Phone: 1(620)920-771678 [place] [address] 03-01-2023 10:40-0400 Body height 170.2 cm Dewayne Doran MD Work Phone: [facility] 03-01-2023 10:40-0400 Body temperature 98.2 [degF] Dewayne Doran MD Work Phone: [facility] 03-01-2023 10:40-0400 Body weight 90.1 kg Dewayne Doran MD Work Phone: [facility] 03-01-2023 10:40-0400 Diastolic blood pressure 87 mm[Hg] Dewayne Doran MD Work Phone: [facility] 03-01-2023 10:40-0400 Heart rate 109 /min Dewayne Doran MD Work Phone: [facility] 03-01-2023 10:40-0400 SaO2% (BldA) [Mass fraction] 97 % Dewayne Doran MD Work Phone: [facility] 03-01-2023 10:40-0400 Systolic blood pressure 119 mm[Hg] Dewayne Doran MD Work Phone: [facility] 02-26-2023 03:54-0400 Diastolic blood pressure 63 mm[Hg] [facility] Work Phone: 2(366)776-914138 [address] 02-26-2023 03:54-0400 Heart rate 68 /min [facility] Work Phone: 2(690)844-888238 [address] 02-26-2023 03:54-0400 Respiratory rate 15 /min [facility] Work Phone: 7(414)943-591378 [place] [address] 02-26-2023 03:54-0400 SaO2% (BldA) [Mass fraction] 97 % [facility] Work Phone: 0(626)968-596970 [place] [address] 02-26-2023 03:54-0400 Systolic blood pressure 107 mm[Hg] [facility] Work Phone: 0(673)439-798638 [address] 02-25-2023 23:59-0400 Body height 167.64 cm [facility] Work Phone: 3(517)931-144578 [place] [address] 02-25-2023 23:59-0400 Body mass index (BMI) [Ratio] 31.8 kg/m2 [facility] Work Phone: 2(573)125-127638 [address] 02-25-2023 23:59-0400 Body temperature 98 [degF] [facility] Work Phone: 4(891)205-807578 [place] [address] 02-25-2023 23:59-0400 Body weight 89.44 kg [facility] Work Phone: 6(880)013-129778 [place] [address] 02-24-2023 12:55-0400 Diastolic blood pressure 93 mm[Hg] [facility] Work Phone: 2(762)490-723378 [place] [address] 02-24-2023 12:55-0400 Heart rate 85 /min [facility] Work Phone: 3(260)358-211678 [place] [address] 02-24-2023 12:55-0400 Respiratory rate 18 /min [facility] Work Phone: 6(984)307-919478 [place] [address] 02-24-2023 12:55-0400 SaO2% (BldA) [Mass fraction] 96 % [facility] Work Phone: 0(838)221-009578 [place] [address] 02-24-2023 12:55-0400 Systolic blood pressure 124 mm[Hg] [facility] Work Phone: 6(814)637-660778 [place] [address] 02-24-2023 11:32-0400 Body mass index (BMI) [Ratio] 32.4 kg/m2 [facility] Work Phone: 3(572)799-053078 [place] [address] 02-24-2023 11:32-0400 Body temperature 97.8 [degF] [facility] Work Phone: 0(028)982-459878 [place] [address] 02-24-2023 11:32-0400 Body weight 91.22 kg [facility] Work Phone: 9(008)254-625778 [place] [address] 02-23-2023 09:59-0400 Body temperature 97.11 [degF] Pilar Magdaleno APRN.CNP Work Phone: [facility] 02-23-2023 09:59-0400 Body weight 91.17 kg Pilar Magdaleno APRN.[employer] Work Phone: [facility] 02-23-2023 09:59-0400 Diastolic blood pressure 74 mm[Hg] Pilar Magdaleno APRN.[employer] Work Phone: [facility] 02-23-2023 09:59-0400 Heart rate 88 /min Pilar Knoble STAGE ELECTRICIAN.[employer] Work Phone: [facility] 02-23-2023 09:59-0400 Respiratory rate 16 /min Pilar Rasta STAGE ELECTRICIAN.[employer] Work Phone: [facility] 02-23-2023 09:59-0400 Systolic blood pressure 118 mm[Hg] Pilar Rasta STAGE ELECTRICIAN.[employer] Work Phone: [facility] 02-11-2023 15:17-0400 Body temperature 97.88 [degF] HELENA SILVERMAN STAGE ELECTRICIAN-[employer] [facility] 02-11-2023 15:17-0400 Diastolic Blood Pressure Non-Invasive 86 1 HELENA SILVERMAN [employer]AGE ELECTRICIAN[employer] [facility] 02-11-2023 15:17-0400 Heart rate 67 /min HELENA SILVERMAN STAGE ELECTRICIAN[employer] [facility] 02-11-2023 15:17-0400 Reason For Taking VItal Signs HELENA SILVERMAN STAGE ELECTRICIAN[employer] [facility] 02-11-2023 15:17-0400 Systolic Blood Pressure Non-Invasive 137 1 HELENASHERON SILVERMAN STAGE ELECTRICIAN-[employer] [facility] 02-11-2023 11:58-0400 Body temperature 97.7 [degF] HELENA SILVERMAN STAGE ELECTRICIAN[employer] [facility] 02-11-2023 11:58-0400 Diastolic Blood Pressure Non-Invasive 94 1 HELENA SILVERMAN STAGE ELECTRICIAN[employer] [facility] 02-11-2023 11:58-0400 Heart rate 68 /min HELENA SILVERMAN STAGE ELECTRICIAN[employer] [facility] 02-11-2023 11:58-0400 Reason For Taking VItal Signs HELENA SILVERMAN STAGE ELECTRICIAN-[employer] [facility] 02-11-2023 11:58-0400 Respiratory rate 18 /min HELENA SILVERMAN STAGE ELECTRICIAN[employer] [facility] 02-11-2023 11:58-0400 Systolic Blood Pressure Non-Invasive 138 1 HELENA SILVERMAN STAGE ELECTRICIAN[employer] [facility] 02-11-2023 07:52-0400 Body temperature 98.06 [degF] HELENA SILVERMAN STAGE ELECTRICIAN[employer] [facility] 02-11-2023 07:52-0400 Diastolic Blood Pressure Non-Invasive 82 1 HELENA SILVERMAN STAGE ELECTRICIAN[employer] [facility] 02-11-2023 07:52-0400 Heart rate 75 /min HELENA SILVERMAN STAGE ELECTRICIAN[employer] [facility] 02-11-2023 07:52-0400 Reason For Taking VItal Signs HELENA SILVERMAN STAGE ELECTRICIAN-[employer] [facility] 02-11-2023 07:52-0400 Respiratory rate 18 /min HELENA SILVERMAN STAGE ELECTRICIAN[employer] [facility] 02-11-2023 07:52-0400 Systolic Blood Pressure Non-Invasive 127 1 HELENA SILVERMAN STAGE ELECTRICIAN[employer] [facility] 02-11-2023 05:25-0400 Respiratory rate 18 /min HELENA SILVERMAN STAGE ELECTRICIAN[employer] [facility] 02-11-2023 01:49-0400 Body height 169.9 cm HELENA SILVERMAN STAGE ELECTRICIAN[employer] [facility] 02-11-2023 01:49-0400 Body weight 94.4 kg HELENA SILVERMAN STAGE ELECTRICIAN[employer] [facility] 02-11-2023 01:49-0400 Body weight 32.7 kg/m2 HELENA SILVERMAN APRN-[employer] [facility] 02-10-2023 23:34-0400 Blood Pressure Cuff Size HELENA HERRERA STAGE ELECTRICIAN-[employer] [facility] 02-10-2023 23:34-0400 Blood Pressure Location HELENA SILVERMAN [employer]AGE ELECTRICIAN[employer] [facility] 02-10-2023 23:34-0400 Blood Pressure Method HELENA HERRERA STAGE ELECTRICIAN[employer] [facility] 02-10-2023 23:34-0400 Body height 167.6 cm HELENA HERRERA STAGE ELECTRICIAN[employer] [facility] 02-10-2023 23:34-0400 Body temperature 98.24 [degF] HELENA COLBYAGBRIEL STAGE ELECTRICIAN-[employer] [facility] 02-10-2023 23:34-0400 Body weight 97.7 kg HELENA SILVERMAN STAGE ELECTRICIAN-[employer] [facility] 02-10-2023 23:34-0400 Heart rate 90 /min HELENA HERRERA STAGE ELECTRICIAN[employer] [facility] 02-08-2023 15:46-0400 Heart rate 97 /min [facility] Work Phone: [facility] 02-08-2023 15:46-0400 Respiratory rate 21 /min [facility] Work Phone: [facility] 02-08-2023 15:46-0400 SaO2% (BldA) [Mass fraction] 96 % [facility] Work Phone: 0(658)173-280678 [place] [address] 02-08-2023 11:06-0400 Body height 167.64 cm [facility] Work Phone: 5(638)996-279778 [place] [address] 02-08-2023 11:06-0400 Body mass index (BMI) [Ratio] 34 kg/m2 [facility] Work Phone: 4(911)763-668978 [place] [address] 02-08-2023 11:06-0400 Body temperature 96 [degF] [facility] Work Phone: 9(701)012-805178 [place] [address] 02-08-2023 11:06-0400 Body weight 95.52 kg [facility] Work Phone: 9(228)888-511978 [place] [address] 02-08-2023 11:06-0400 Diastolic blood pressure 90 mm[Hg] [facility] Work Phone: 1(137)331-202878 [place] [address] 02-08-2023 11:06-0400 Systolic blood pressure 149 mm[Hg] [facility] Work Phone: 4(758)453-490578 [place] [address] 01-25-2023 11:35-0400 Body height 167.64 cm [facility] Work Phone: 1(593)586-721878 [place] [address] 01-25-2023 11:35-0400 Body mass index (BMI) [Ratio] 35.2 kg/m2 [facility] Work Phone: 4(746)879-572578 [place] [address] 01-25-2023 11:35-0400 Body temperature 96 [degF] [facility] Work Phone: 2(818)446-766378 [place] [address] 01-25-2023 11:35-0400 Body weight 98.8 kg [facility] Work Phone: 1(258)144-769378 [place] [address] 01-25-2023 11:35-0400 Diastolic blood pressure 87 mm[Hg] [facility] Work Phone: 4(594)765-467578 [place] [address] 01-25-2023 11:35-0400 Heart rate 86 /min [facility] Work Phone: 1(136)570-261378 [place] [address] 01-25-2023 11:35-0400 Respiratory rate 14 /min [facility] Work Phone: 8(175)912-009878 [place] [address] 01-25-2023 11:35-0400 SaO2% (BldA) [Mass fraction] 100 % [facility] Work Phone: [facility] 01-25-2023 11:35-0400 Systolic blood pressure 123 mm[Hg] [facility] Work Phone: [facility] 01-24-2023 12:38-0400 Diastolic blood pressure 74 mm[Hg] Abdirizak Ramirez MD Work Phone: [facility] 01-24-2023 12:38-0400 Heart rate 70 /min Abdirizak Ramirez MD Work Phone: [facility] 01-24-2023 12:38-0400 SaO2% (BldA) [Mass fraction] 98 % Abdirizak Ramirez MD Work Phone: [facility] 01-24-2023 12:38-0400 Systolic blood pressure 129 mm[Hg] Abdirizak Ramirez MD Work Phone: [facility] 01-24-2023 12:09-0400 Respiratory rate 15 /min Abdirizak Ramirez MD Work Phone: [facility] 01-24-2023 10:28-0400 Body height 167.6 cm Abdirizak Ramirez MD Work Phone: [facility] 01-24-2023 10:28-0400 Body mass index (BMI) [Ratio] 37.12 kg/m2 Abdirizak Ramirez MD Work Phone: [facility] 01-24-2023 10:28-0400 Body temperature 97.3 [degF] Abdirizak Ramirez MD Work Phone: [facility] 01-24-2023 10:28-0400 Body weight 104.33 kg Abdirizak Ramirez MD Work Phone: [facility] 01-15-2023 15:08-0400 Body temperature 97.9 [degF] [facility] Work Phone: [facility] 01-15-2023 15:08-0400 Diastolic blood pressure 102 mm[Hg] [facility] Work Phone: 6(238)642-533478 [place] [address] 01-15-2023 15:08-0400 Heart rate 73 /min [facility] Work Phone: 7(434)453-984878 [place] [address] 01-15-2023 15:08-0400 Respiratory rate 16 /min [facility] Work Phone: 0(798)130-253678 [place] [address] 01-15-2023 15:08-0400 SaO2% (BldA) [Mass fraction] 97 % [facility] Work Phone: 5(665)663-075078 [place] [address] 01-15-2023 15:08-0400 Systolic blood pressure 168 mm[Hg] [facility] Work Phone: 3(373)858-925878 [place] [address] 01-15-2023 12:58-0400 Body height 167.64 cm [facility] Work Phone: 2(935)724-362078 [place] [address] 01-15-2023 12:58-0400 Body weight 104 kg [facility] Work Phone: 1(507)108-152878 [place] [address] 01-14-2023 16:21-0400 Body mass index (BMI) [Ratio] 37 kg/m2 [facility] Work Phone: 4(270)629-019178 [place] [address] 01-13-2023 10:20-0400 Respiratory rate 16 /min [facility] Work Phone: 8(038)840-843478 [place] [address] 01-13-2023 06:21-0400 Body mass index (BMI) [Ratio] 37.6 kg/m2 [facility] Work Phone: 0(027)873-292578 [place] [address] 01-13-2023 06:21-0400 Body temperature 97 [degF] [facility] Work Phone: 0(596)576-486678 [place] [address] 01-13-2023 06:21-0400 Body weight 105.9 kg [facility] Work Phone: 6(113)345-331278 [place] [address] 01-13-2023 06:21-0400 Diastolic blood pressure 106 mm[Hg] [facility] Work Phone: 9(889)048-568878 [place] [address] 01-13-2023 06:21-0400 Heart rate 99 /min [facility] Work Phone: [facility] 01-13-2023 06:21-0400 SaO2% (BldA) [Mass fraction] 99 % [facility] Work Phone: [facility] 01-13-2023 06:21-0400 Systolic blood pressure 169 mm[Hg] [facility] Work Phone: [facility] 01-12-2023 13:20-0400 Diastolic blood pressure 101 mm[Hg] [facility] 01-12-2023 13:20-0400 Heart rate 70 /min [facility] 01-12-2023 13:20-0400 Respiratory rate 14 /min [facility] 01-12-2023 13:20-0400 SaO2% (BldA) [Mass fraction] 98 % [facility] 01-12-2023 13:20-0400 Systolic blood pressure 143 mm[Hg] [facility] 01-12-2023 10:45-0400 Body height 167.[address] [facility] 01-12-2023 10:45-0400 Body mass index (BMI) [Ratio] 37.6 kg/m2 [facility] 01-12-2023 10:45-0400 Body temperature 95.2 [degF] [facility] 01-12-2023 10:45-0400 Body weight 105.[address] [facility] 01-12-2023 02:13-0400 Diastolic blood pressure 87 mm[Hg] [facility] 01-12-2023 02:13-0400 Heart rate 84 /min [facility] 01-12-2023 02:13-0400 Respiratory rate 18 /min [facility] 01-12-2023 02:13-0400 SaO2% (BldA) [Mass fraction] 99 % [facility] 01-12-2023 02:13-0400 Systolic blood pressure 141 mm[Hg] [facility] 01-11-2023 22:58-0400 Body height 167.[address] [facility] 01-11-2023 22:58-0400 Body mass index (BMI) [Ratio] 33 kg/m2 [facility] 01-11-2023 22:58-0400 Body temperature 96.8 [degF] [facility] 01-11-2023 22:58-0400 Body weight 92.[address] [facility] 01-10-2023 17:27-0400 Body temperature 98.78 [degF] ESSIE FROMMELT DO [facility] 01-10-2023 17:27-0400 Diastolic Blood Pressure Non-Invasive 80 1 ESSIE FROMMELT DO [facility] 01-10-2023 17:27-0400 Heart rate 78 /min ESSIE FROMMELT DO [facility] 01-10-2023 17:27-0400 Respiratory rate 16 /min ESSIE FROMLoggedInT DO [facility] 01-10-2023 17:27-0400 Systolic Blood Pressure Non-Invasive 148 1 ESSIE FROMMELT DO [facility] 01-10-2023 16:16-0400 Body temperature 98.78 [degF] ESSIE FROMMELT DO [facility] 01-10-2023 15:43-0400 Diastolic Blood Pressure Non-Invasive 89 1 ESSIE FROMMELT DO [facility] 01-10-2023 15:43-0400 Heart rate 77 /min ESSIE FROMLoggedInT DO [facility] 01-10-2023 15:43-0400 Respiratory rate 16 /min ESSIE FROMLoggedInT DO [facility] 01-10-2023 15:43-0400 Systolic Blood Pressure Non-Invasive 144 1 ESSIE WASHINGTONLoggedInT DO [facility] 01-10-2023 15:09-0400 Heart rate 74 /min ESSIE LAWLERXcalia [facility] 01-10-2023 14:32-0400 Respiratory rate 12 /min [employer]IE [employer] [facility] 01-10-2023 13:47-0400 Body temperature 98.78 [degF] [facility] 01-10-2023 13:47-0400 Diastolic Blood Pressure Non-Invasive 92 1 [employer]IE [employer] [facility] 01-10-2023 13:47-0400 Systolic Blood Pressure Non-Invasive 158 1 [facility] [employer] [facility] 01-09-2023 15:21-0400 Diastolic blood pressure 70 mm[Hg] [facility] 01-09-2023 15:21-0400 Heart rate 84 /min [facility] 01-09-2023 15:21-0400 Respiratory rate 16 /min [facility] 01-09-2023 15:21-0400 SaO2% (BldA) [Mass fraction] 97 % [facility] 01-09-2023 15:21-0400 Systolic blood pressure 139 mm[Hg] [facility] 01-09-2023 11:53-0400 Body height 167.[address] [facility] 01-09-2023 11:53-0400 Body mass index (BMI) [Ratio] 41.1 kg/m2 [facility] 01-09-2023 11:53-0400 Body temperature 98.2 [degF] [facility] 01-09-2023 11:53-0400 Body weight 115.[address] [facility] 01-07-2023 14:18-0400 Respiratory rate 14 /min [facility] 01-07-2023 12:01-0400 Diastolic blood pressure 99 mm[Hg] [facility] 01-07-2023 12:01-0400 Systolic blood pressure 154 mm[Hg] [facility] 01-07-2023 08:38-0400 Body height 167.[address] [facility] 01-07-2023 08:38-0400 Body mass index (BMI) [Ratio] 34.5 kg/m2 [facility] 01-07-2023 08:38-0400 Body temperature 98.7 [degF] [facility] 01-07-2023 08:38-0400 Body weight 97.[address] [facility] 01-07-2023 08:38-0400 Heart rate 82 /min [facility] 01-07-2023 08:38-0400 SaO2% (BldA) [Mass fraction] 99 % [facility] 11-19-2022 09:26-0400 Body temperature 98.7 [degF] [facility] 11-19-2022 09:26-0400 Diastolic blood pressure 81 mm[Hg] [facility] 11-19-2022 09:26-0400 Heart rate 101 /min [facility] 11-19-2022 09:26-0400 Respiratory rate 14 /min [facility] 11-19-2022 09:26-0400 SaO2% (BldA) [Mass fraction] 99 % [facility] 11-19-2022 09:26-0400 Systolic blood pressure 131 mm[Hg] [facility] 11-19-2022 09:24-0400 Body mass index (BMI) [Ratio] 39.3 kg/m2 [facility] 11-19-2022 09:24-0400 Body weight 110.[address] [facility] 11-17-2022 08:43-0400 Body temperature 97.5 [degF] Andres Galaviz APRN.[employer] Work Phone: [facility] 11-17-2022 08:43-0400 Body weight 110.22 kg Andres Galaviz APRN.[employer] Work Phone: [facility] 11-17-2022 08:43-0400 Diastolic blood pressure 72 mm[Hg] Andres Galaviz APRN.[employer] Work Phone: [facility] 11-17-2022 08:43-0400 Heart rate 108 /min [facility] STAGE ELECTRICIAN.[employer] Work Phone: [facility] 11-17-2022 08:43-0400 Respiratory rate 16 /min [facility] STAGE ELECTRICIAN.[employer] Work Phone: [facility] 11-17-2022 08:43-0400 SaO2% (BldA) [Mass fraction] 97 % [facility] STAGE ELECTRICIAN.[employer] Work Phone: [facility] 11-17-2022 08:43-0400 Systolic blood pressure 120 mm[Hg] [facility] STAGE ELECTRICIAN.[employer] Work Phone: [facility] 10-08-2022 08:44-0400 Body temperature 97 [degF] Shamika Athy PA-C Work Phone: [facility] 10-08-2022 08:44-0400 Body weight 109.14 kg Shamika Athy PA-C Work Phone: [facility] 10-08-2022 08:44-0400 Diastolic blood pressure 82 mm[Hg] Shamika Athy PA-C Work Phone: [facility] 10-08-2022 08:44-0400 Heart rate 94 /min Shamika Athy PA-C Work Phone: [facility] 10-08-2022 08:44-0400 Respiratory rate 16 /min Shamika Athy PA-C Work Phone: [facility] 10-08-2022 08:44-0400 SaO2% (BldA) [Mass fraction] 100 % Shamika Athy PA-C Work Phone: [facility] 10-08-2022 08:44-0400 Systolic blood pressure 112 mm[Hg] Shamika Athy PA-C Work Phone: [facility] 08-15-2022 13:46-0500 Body temperature 98.6 [degF] Dr. Sophy Gibbons Work Phone: [facility] 08-15-2022 13:46-0500 Diastolic blood pressure 95 mm[Hg] Dr. Sophy Gibbons Work Phone: 4(044)381-109778 [place] [address] 08-15-2022 13:46-0500 Heart rate 87 /min Dr. Sophy Gibbons Work Phone: 8(434)169-513978 [place] [address] 08-15-2022 13:46-0500 Respiratory rate 16 /min Dr. Sophy Gibbons Work Phone: 9(831)930-521378 [place] [address] 08-15-2022 13:46-0500 SaO2% (BldA) [Mass fraction] 99 % Dr. Sophy Gibbons Work Phone: 2(522)628-997378 [place] [address] 08-15-2022 13:46-0500 Systolic blood pressure 130 mm[Hg] Dr. Sophy Gibbons Work Phone: 0(060)492-099778 [place] [address] 08-15-2022 05:43-0500 Body weight 107.[address] Sophy Gibbons Work Phone: 6(770)560-414778 [place] [address] 08-13-2022 10:58-0500 Body height 167.[address] Sophy Gibbons Work Phone: 4(137)074-737978 [place] [address] 08-12-2022 22:34-0500 Body mass index (BMI) [Ratio] 37.9 kg/m2 Dr. Sophy Gibbons Work Phone: 1(945)453-484078 [place] [address] 08-12-2022 22:03-0500 Body temperature 98 [degF] Dr. Sophy Gibbons Work Phone: 9(469)167-829678 [place] [address] 08-12-2022 22:03-0500 Diastolic blood pressure 74 mm[Hg] Dr. Sophy Gibbons Work Phone: [phone] [place] [address] 08-12-2022 22:03-0500 Heart rate 82 /min Dr. Sophy Gibbons Work Phone: [phone] [place] [address] 08-12-2022 22:03-0500 Respiratory rate 15 /min Dr. Sophy Gibbons Work Phone: [phone] [place] [address] 08-12-2022 22:03-0500 SaO2% (BldA) [Mass fraction] 99 % Dr. Sophy Gibbons Work Phone: [facility] 08-12-2022 22:03-0500 Systolic blood pressure 118 mm[Hg] Dr. Sophy Gibbons Work Phone: [facility] 08-12-2022 15:27-0500 Body height 167.[address] Sophy Gibbons Work Phone: [facility] 08-12-2022 15:27-0500 Body mass index (BMI) [Ratio] 37.9 kg/m2 Dr. Sophy Gibbons Work Phone: [facility] 08-12-2022 15:27-0500 Body weight 106.[address] Sophy Gibbons Work Phone: [facility] 06-29-2022 08:39-0500 Body temperature 97.6 [degF] No Primary Care Physician [facility] 06-29-2022 08:39-0500 Diastolic blood pressure 90 mm[Hg] No Primary Care Physician [facility] 06-29-2022 08:39-0500 Heart rate 81 /min No Primary Care Physician [facility] 06-29-2022 08:39-0500 Respiratory rate 16 /min No Primary Care Physician [facility] 06-29-2022 08:39-0500 SaO2% (BldA) [Mass fraction] 99 % No Primary Care Physician [facility] 06-29-2022 08:39-0500 Systolic blood pressure 130 mm[Hg] No Primary Care Physician [facility] 06-26-2022 06:09-0500 Body height 167.64 cm No Primary Care Physician [facility] Work Phone: 06-26-2022 06:09-0500 Body mass index (BMI) [Ratio] 38.1 kg/m2 No Primary Care Physician [facility] 06-26-2022 06:09-0500 Body weight 107.1 kg No Primary Care Physician [facility] 06-25-2022 03:57-0500 Body temperature 98.1 [degF] No Primary Care Physician [facility] Work Phone: 06-25-2022 03:57-0500 Diastolic blood pressure 99 mm[Hg] No Primary Care Physician [facility] Work Phone: 06-25-2022 03:57-0500 Heart rate 96 /min No Primary Care Physician [facility] Work Phone: 06-25-2022 03:57-0500 Respiratory rate 18 /min No Primary Care Physician [facility] Work Phone: 06-25-2022 03:57-0500 SaO2% (BldA) [Mass fraction] 97 % No Primary Care Physician [facility] Work Phone: 06-25-2022 03:57-0500 Systolic blood pressure 134 mm[Hg] No Primary Care Physician [facility] Work Phone: 06-24-2022 16:48-0500 Body height 167.64 cm No Primary Care Physician [facility] Work Phone: 06-24-2022 16:48-0500 Body mass index (BMI) [Ratio] 38 kg/m2 No Primary Care Physician [facility] Work Phone: 06-24-2022 16:48-0500 Body weight 107.04 kg No Primary Care Physician [facility] Work Phone: 06-24-2022 15:30-0500 Body temperature 98.9 [degF] No Primary Care Physician [facility] Work Phone: 06-24-2022 15:30-0500 Diastolic blood pressure 99 mm[Hg] No Primary Care Physician [facility] Work Phone: 06-24-2022 15:30-0500 Heart rate 97 /min No Primary Care Physician [facility] Work Phone: 06-24-2022 15:30-0500 Respiratory rate 15 /min No Primary Care Physician [facility] Work Phone: 06-24-2022 15:30-0500 SaO2% (BldA) [Mass fraction] 100 % No Primary Care Physician [facility] Work Phone: 06-24-2022 15:30-0500 Systolic blood pressure 137 mm[Hg] No Primary Care Physician [facility] Work Phone: 06-24-2022 11:12-0500 Body height 167.64 cm No Primary Care Physician [facility] Work Phone: 06-24-2022 11:12-0500 Body mass index (BMI) [Ratio] 35.5 kg/m2 No Primary Care Physician [facility] Work Phone: 06-24-2022 11:12-0500 Body weight 99.79 kg No Primary Care Physician [facility] Work Phone: 04-09-2022 16:15-0400 Body temperature 98.2 [degF] No Primary Care Physician [facility] Work Phone: 04-09-2022 16:15-0400 Diastolic blood pressure 87 mm[Hg] No Primary Care Physician [facility] Work Phone: 04-09-2022 16:15-0400 Heart rate 89 /min No Primary Care Physician [facility] Work Phone: 04-09-2022 16:15-0400 Respiratory rate 18 /min No Primary Care Physician [facility] Work Phone: 04-09-2022 16:15-0400 SaO2% (BldA) [Mass fraction] 99 % No Primary Care Physician [facility] Work Phone: 04-09-2022 16:15-0400 Systolic blood pressure 136 mm[Hg] No Primary Care Physician [facility] Work Phone: 04-08-2022 11:30-0400 Body height 167.64 cm No Primary Care Physician [facility] Work Phone: 04-08-2022 11:30-0400 Body weight 96.6 kg No Primary Care Physician [facility] Work Phone: 04-06-2022 17:48-0400 Body mass index (BMI) [Ratio] 34.3 kg/m2 No Primary Care Physician [facility] Work Phone: 04-06-2022 15:39-0400 Body temperature 100.1 [degF] No Primary Care Physician [facility] Work Phone: 04-06-2022 15:39-0400 Diastolic blood pressure 79 mm[Hg] No Primary Care Physician [facility] Work Phone: 04-06-2022 15:39-0400 Heart rate 114 /min No Primary Care Physician [facility] Work Phone: 04-06-2022 15:39-0400 Respiratory rate 20 /min No Primary Care Physician [facility] Work Phone: 04-06-2022 15:39-0400 SaO2% (BldA) [Mass fraction] 98 % No Primary Care Physician [facility] Work Phone: 04-06-2022 15:39-0400 Systolic blood pressure 136 mm[Hg] No Primary Care Physician [facility] Work Phone: 04-06-2022 12:45-0400 Body height 167.64 cm No Primary Care Physician [facility] Work Phone: 04-06-2022 12:45-0400 Body mass index (BMI) [Ratio] 34.7 kg/m2 No Primary Care Physician [facility] Work Phone: 04-06-2022 12:45-0400 Body weight 97.5 kg No Primary Care Physician [facility] Work Phone: 04-05-2022 16:06-0400 Diastolic blood pressure 95 mm[Hg] No Primary Care Physician [facility] Work Phone: 04-05-2022 16:06-0400 Heart rate 103 /min No Primary Care Physician [facility] Work Phone: 04-05-2022 16:06-0400 Respiratory rate 16 /min No Primary Care Physician [facility] Work Phone: 04-05-2022 16:06-0400 SaO2% (BldA) [Mass fraction] 98 % No Primary Care Physician [facility] Work Phone: 04-05-2022 16:06-0400 Systolic blood pressure 127 mm[Hg] No Primary Care Physician [facility] Work Phone: 04-05-2022 11:53-0400 Body temperature 98 [degF] No Primary Care Physician [facility] Work Phone: 04-05-2022 11:50-0400 Body height 167.64 cm No Primary Care Physician [facility] Work Phone: 04-05-2022 11:50-0400 Body mass index (BMI) [Ratio] 34.4 kg/m2 No Primary Care Physician [facility] Work Phone: 04-05-2022 11:50-0400 Body weight 96.8 kg No Primary Care Physician [facility] Work Phone: 03-23-2022 12:28-0400 Body temperature 97 [degF] Sid Bravo MD Work Phone: [facility] 03-23-2022 12:28-0400 Body weight 97.07 kg Sid Bravo MD Work Phone: [facility] 03-23-2022 12:28-0400 Diastolic blood pressure 98 mm[Hg] Sid Bravo MD Work Phone: [facility] 03-23-2022 12:28-0400 Heart rate 105 /min Sid Bravo MD Work Phone: [facility] 03-23-2022 12:28-0400 Respiratory rate 20 /min Sid Bravo MD Work Phone: [facility] 03-23-2022 12:28-0400 SaO2% (BldA) [Mass fraction] 93 % Sid Bravo MD Work Phone: [facility] 03-23-2022 12:28-0400 Systolic blood pressure 130 mm[Hg] Sid Bravo MD Work Phone: [facility] 02-02-2022 09:33-0400 Body temperature 97.2 [degF] Alyssa Yeni STAGE ELECTRICIAN.[employer] Work Phone: [facility] 02-02-2022 09:33-0400 Body weight 92.53 kg Alyssa Yeni [employer]AGE ELECTRICIAN[employer] Work Phone: [facility] 02-02-2022 09:33-0400 Diastolic blood pressure 72 mm[Hg] Alyssa Yeni STAGE ELECTRICIAN[employer] Work Phone: [facility] 02-02-2022 09:33-0400 Heart rate 74 /min Alyssa Yeni STAGE ELECTRICIAN.[employer] Work Phone: [facility] 02-02-2022 09:33-0400 Respiratory rate 16 /min Alyssa Yeni STAGE ELECTRICIAN.[employer] Work Phone: [facility] 02-02-2022 09:33-0400 SaO2% (BldA) [Mass fraction] 99 % Alyssa Yeni STAGE ELECTRICIAN.[employer] Work Phone: [facility] 02-02-2022 09:33-0400 Systolic blood pressure 120 mm[Hg] Alyssa Yeni STAGE ELECTRICIAN[employer] Work Phone: [facility] 02-01-2022 17:18-0400 Diastolic blood pressure 100 mm[Hg] No Primary Care Physician [facility] Work Phone: 02-01-2022 17:18-0400 Heart rate 66 /min No Primary Care Physician [facility] Work Phone: 02-01-2022 17:18-0400 Respiratory rate 18 /min No Primary Care Physician [facility] Work Phone: 02-01-2022 17:18-0400 SaO2% (BldA) [Mass fraction] 97 % No Primary Care Physician [facility] Work Phone: 02-01-2022 17:18-0400 Systolic blood pressure 145 mm[Hg] No Primary Care Physician [facility] Work Phone: 02-01-2022 12:42-0400 Body height 167.64 cm No Primary Care Physician [facility] Work Phone: 02-01-2022 12:42-0400 Body mass index (BMI) [Ratio] 32.3 kg/m2 No Primary Care Physician [facility] Work Phone: 02-01-2022 12:42-0400 Body temperature 96.3 [degF] No Primary Care Physician [facility] Work Phone: 02-01-2022 12:42-0400 Body weight 90.71 kg No Primary Care Physician [facility] Work Phone: 01-26-2022 12:31-0400 Body height 167.[address] [facility] Work Phone: 01-26-2022 12:31-0400 Body mass index (BMI) [Ratio] 32.6 kg/m2 [facility] Work Phone: 01-26-2022 12:31-0400 Body temperature 98.4 [degF] [facility] Work Phone: 01-26-2022 12:31-0400 Body weight 91.[address] [facility] Work Phone: 01-26-2022 12:31-0400 Diastolic blood pressure 108 mm[Hg] [facility] Work Phone: 01-26-2022 12:31-0400 Heart rate 94 /min [facility] Work Phone: 01-26-2022 12:31-0400 Respiratory rate 22 /min [facility] Work Phone: 01-26-2022 12:31-0400 SaO2% (BldA) [Mass fraction] 99 % [facility] Work Phone: 01-26-2022 12:31-0400 Systolic blood pressure 154 mm[Hg] [facility] Work Phone: 01-23-2022 18:18-0400 Diastolic blood pressure 74 mm[Hg] [facility] Work Phone: 01-23-2022 18:18-0400 Respiratory rate 18 /min [facility] Work Phone: 01-23-2022 18:18-0400 Systolic blood pressure 122 mm[Hg] [facility] Work Phone: 01-23-2022 16:02-0400 Body height 167.[address] [facility] Work Phone: 01-23-2022 16:02-0400 Body mass index (BMI) [Ratio] 33.9 kg/m2 [facility] Work Phone: 01-23-2022 16:02-0400 Body temperature 97.6 [degF] [facility] Work Phone: 01-23-2022 16:02-0400 Body weight 95.[address] [facility] Work Phone: 01-23-2022 16:02-0400 Heart rate 99 /min [facility] Work Phone: 01-23-2022 16:02-0400 SaO2% (BldA) [Mass fraction] 100 % [facility] Work Phone: 01-22-2022 23:45-0400 Heart rate 91 /min [facility] Work Phone: 01-22-2022 23:45-0400 Respiratory rate 16 /min [facility] Work Phone: 01-22-2022 23:45-0400 SaO2% (BldA) [Mass fraction] 98 % [facility] Work Phone: 01-22-2022 21:26-0400 Body height 167.[address] [facility] Work Phone: 01-22-2022 21:26-0400 Body mass index (BMI) [Ratio] 33.9 kg/m2 [facility] Work Phone: 01-22-2022 21:26-0400 Body temperature 97.8 [degF] [facility] Work Phone: 01-22-2022 21:26-0400 Body weight 95.[address] [facility] Work Phone: 01-22-2022 21:26-0400 Diastolic blood pressure 97 mm[Hg] [facility] Work Phone: 01-22-2022 21:26-0400 Systolic blood pressure 140 mm[Hg] [facility] Work Phone: 01-16-2022 14:12-0400 Body height 167.[address] [facility] Work Phone: 01-16-2022 14:12-0400 Body mass index (BMI) [Ratio] 33.9 kg/m2 [facility] Work Phone: 01-16-2022 14:12-0400 Body temperature 96.7 [degF] [facility] Work Phone: 01-16-2022 14:12-0400 Body weight 95.[address] [facility] Work Phone: 01-16-2022 14:12-0400 Diastolic blood pressure 93 mm[Hg] [facility] Work Phone: 01-16-2022 14:12-0400 Heart rate 130 /min [facility] Work Phone: 01-16-2022 14:12-0400 Respiratory rate 18 /min [facility] Work Phone: 01-16-2022 14:12-0400 SaO2% (BldA) [Mass fraction] 98 % [facility] Work Phone: 01-16-2022 14:12-0400 Systolic blood pressure 126 mm[Hg] [facility] Work Phone: 11-16-2021 10:09-0400 Body temperature 98.3 [degF] [facility] Work Phone: 11-16-2021 10:09-0400 Diastolic blood pressure 82 mm[Hg] [facility] Work Phone: 11-16-2021 10:09-0400 Heart rate 98 /min [facility] Work Phone: 11-16-2021 10:09-0400 Systolic blood pressure 138 mm[Hg] [facility] Work Phone: 11-16-2021 08:39-0400 Body height 167.[address] [facility] Work Phone: 11-16-2021 08:39-0400 Body mass index (BMI) [Ratio] 34.9 kg/m2 [facility] Work Phone: 11-16-2021 08:39-0400 Body weight 98.[address] [facility] Work Phone: 11-16-2021 08:39-0400 Respiratory rate 16 /min [facility] Work Phone: 11-16-2021 08:39-0400 SaO2% (BldA) [Mass fraction] 96 % [facility] Work Phone: 10-29-2021 12:09-0400 Diastolic blood pressure 69 mm[Hg] [facility] Work Phone: 10-29-2021 12:09-0400 Heart rate 71 /min [facility] Work Phone: 10-29-2021 12:09-0400 Respiratory rate 15 /min [facility] Work Phone: 10-29-2021 12:09-0400 SaO2% (BldA) [Mass fraction] 98 % [facility] Work Phone: 10-29-2021 12:09-0400 Systolic blood pressure 124 mm[Hg] [facility] Work Phone: 10-29-2021 08:59-0400 Body height 167.[address] [facility] Work Phone: 10-29-2021 08:59-0400 Body mass index (BMI) [Ratio] 34.6 kg/m2 [facility] Work Phone: 10-29-2021 08:59-0400 Body temperature 96.9 [degF] [facility] Work Phone: 10-29-2021 08:59-0400 Body weight 97.[address] [facility] Work Phone: 10-24-2021 08:30-0400 Body temperature 97.3 [degF] [facility] Work Phone: 10-24-2021 08:30-0400 Diastolic blood pressure 92 mm[Hg] [facility] Work Phone: 10-24-2021 08:30-0400 Heart rate 98 /min [facility] Work Phone: 10-24-2021 08:30-0400 Respiratory rate 16 /min [facility] Work Phone: 10-24-2021 08:30-0400 SaO2% (BldA) [Mass fraction] 100 % [facility] Work Phone: 10-24-2021 08:30-0400 Systolic blood pressure 148 mm[Hg] [facility] Work Phone: 10-24-2021 08:18-0400 Body height 167.[address] [facility] Work Phone: 10-24-2021 08:18-0400 Body mass index (BMI) [Ratio] 33.7 kg/m2 [facility] Work Phone: 10-24-2021 08:18-0400 Body weight [address] [facility] Work Phone: 08-10-2021 23:58-0500 Heart rate 107 /min [facility] Work Phone: 08-10-2021 23:58-0500 Respiratory rate 18 /min [facility] Work Phone: 08-10-2021 23:58-0500 SaO2% (BldA) [Mass fraction] 100 % [facility] Work Phone: 08-10-2021 22:57-0500 Diastolic blood pressure 88 mm[Hg] [facility] Work Phone: 08-10-2021 22:57-0500 Systolic blood pressure 125 mm[Hg] [facility] Work Phone: 08-10-2021 21:32-0500 Body mass index (BMI) [Ratio] 35.5 kg/m2 [facility] Work Phone: 08-10-2021 21:32-0500 Body temperature 97.6 [degF] [facility] Work Phone: 08-10-2021 21:32-0500 Body weight 99.[address] [facility] Work Phone: Encounters Encounter Date Encounter Type Care Provider Facility Start: 02-15-2025 ambulatory Amy Radford in [facility] Facility:[facility] Start: 01-11-2025 ambulatory Amy Radford in [facility] Facility:[facility] Start: 12-30-2024 Non-patient / Non-visit Dr. Dwaine Bain MD -[facility] Work Phone: Start: 12-30-2024 End: 12-31-2024 Evaluation and management of inpatient Dr. David Bain MD -Intensive Care Unit Work Phone: Start: 12-25-2024 End: 12-25-2024 ambulatory Amy Solorzano JOB LITHOGRAPHER-C Work Phone: [facility] Work Phone: Start: 12-25-2024 End: 12-25-2024 Patient encounter procedure Nayana Peter PA -Ultrasound [facility] Work Phone: Start: 12-25-2024 End: 12-25-2024 ambulatory Amy Solorzano [facility] Facility:[facility] Start: 12-13-2024 End: 12-13-2024 ambulatory Amy Solorzano JOB LITHOGRAPHER-C Work Phone: [facility] Work Phone: Start: 12-13-2024 End: 12-13-2024 Patient encounter procedure Nayana GRADY -Laboratory Work Phone: Start: 12-13-2024 End: 12-13-2024 Patient encounter procedure Nayana GRADY -[facility] Work Phone: Start: 12-13-2024 End: 12-13-2024 ambulatory Amy Solorzano JOB LITHOGRAPHER-C Work Phone: [facility] Work Phone: Start: 12-13-2024 End: 12-13-2024 ambulatory Nayana Peter Facility:[facility] Start: 11-28-2024 Non-patient / Non-visit Dr. Gale Lr DO -[facility] Work Phone: Start: 11-28-2024 Non-patient / Non-visit Clare Loo PA-C -[facility] Start: 11-27-2024 Non-patient / Non-visit Clare Loo PA-C -[facility] Start: 11-26-2024 Non-patient / Non-visit Dr. Clair Rao MD -[facility] Work Phone: Start: 11-26-2024 Non-patient / Non-visit Dr. Fahad Welch MD -[facility] Start: 11-25-2024 Non-patient / Non-visit Dr. Fahad Welch MD -[facility] Start: 11-25-2024 ambulatory Brenda Rao Facility :[facility] Start: 11-25-2024 End: 11-28-2024 Evaluation and management of inpatient Dr. Brenda Rao MD -[facility] Work Phone: Start: 10-26-2024 ambulatory Abdirizak Forrest Facility: [facility] Start: 10-25-2024 End: 10-25-2024 ambulatory Amy Solorzano JOB LITHOGRAPHER-C Work Phone: [facility] Work Phone: Start: 10-25-2024 End: 10-25-[address] Abdirizak Forrest DPM -Cardiovascular Services Work Phone: Start: 10-25-2024 End: 10-25-2024 ambulatory Abdirizak Forrest Facility:[facility] Start: 10-17-2024 End: 10-17-2024 ambulatory Amy Solorzano JOB LITHOGRAPHER-C Work Phone: [facility] Work Phone: Start: 10-17-2024 End: 10-17-2024 Patient encounter procedure [facility] Amy Solorzano NP-C -Laboratory, [facility] Start: 10-17-2024 End: 10-17-2024 ambulatory [facility] Facility:[facility] Start: 07-03-2024 End: 07-03-2024 Patient encounter procedure Irais GRADY Work Phone: [facility] Comment on above: Acute cough (Primary Dx) Start: 07-03-2024 End: 07-03-2024 [facility] Facility:[facility] Start: 07-03-2024 End: 07-03-2024 Subsequent hospital visit by physician Santiago [facility] Work Phone: Radiology Comment on above: Acute cough [R05.1] Start: 06-26-2024 End: 06-26-2024 [facility] Start: 06-26-2024 End: 06-26-2024 Office outpatient visit 25 minutes Frantz Arevalo PA-C Work Phone: [facility] Comment on above: Bronchopneumonia (Pr imary Dx); Mild intermittent asthma, uncomplicated Start: 04-25-2024 End: 04-25-2024 ambulatory [facility] Facility:[facility] Start: 11-08-2023 End: 11-08-2023 ambulatory [facility] Work Phone: Start: 11-08-2023 End: 11-08-2023 Patient encounter procedure [facility] Work Phone: Start: 07-23-2023 End: 07-23-2023 Admission to same day surgery center [facility] Start: 07-23-2023 End: 07-23-2023 ambulatory No Primary Care Physician [facility] Work Phone: Start: 07-23-2023 End: 07-23-2023 No Primary Care Physician [facility] Start: 07-12-2023 End: 07-12-2023 No Primary Care Physician [facility]-Emergency Department Work Phone: Start: 07-02-2023 End: 07-02-2023 Emergency department patient visit No Primary Care Physician [facility] Work Phone: Start: 07-02-2023 End: 07-02-2023 No Primary Care Physician [facility]-Emergency Department Work Phone: Start: 07-01-2023 End: 07-01-2023 Office outpatient visit 15 minutes Andres Galaviz APRN.[employer] Work Phone: [facility] Comment on above: Pain of right eye (P rimary Dx) Start: 06-30-2023 End: 06-30-2023 No Primary Care Physician [facility]-Emergency Department Work Phone: Start: 06-28-2023 End: 06-28-2023 Emergency department patient visit No Primary Care Physician [facility]Emergency [facility] Work Phone: Start: 06-28-2023 End: 06-28-2023 No Primary Care Physician [facility] Work Phone: Start: 06-27-2023 End: 06-27-2023 Emergency department patient visit No Primary Care Physician [facility]Emergency [facility] Work Phone: Start: 06-27-2023 End: 06-27-2023 No Primary Care Physician [facility] Work Phone: Start: 06-26-2023 End: 06-26-2023 Emergency department patient visit No Primary Care Physician [facility]gency [facility] Work Phone: Start: 06-26-2023 End: 06-26-2023 No Primary Care Physician [facility]-Emergency Department Work Phone: Start: 06-25-2023 End: 06-25-2023 Emergency department patient visit No Primary Care Physician [facility]-Emergency Department Work Phone: Start: 06-25-2023 End: 06-25-2023 No Primary Care Physician [facility]-Emergency Department Work Phone: Start: 05-18-2023 End: 05-18-2023 ambulatory No Primary Care Physician [facility] Work Phone: Start: 05-18-2023 End: 05-18-2023 Patient encounter procedure No Primary Care Physician [facility]-Laboratory, Specimen Work Phone: Start: 05-18-2023 End: 05-18-2023 No Primary Care Physician [facility]-Laboratory, Specimen Work Phone: Start: 05-09-2023 Non-patient / Non-visit No Kristina cormier Care Physician [facility] Work Phone: Start: 05-09-2023 [facility] Work Phone: [facility] Work Phone: Start: 05-08-2023 Non-patient / Non-visit No Kristina cormier Care Physician [facility] Work Phone: Start: 05-08-2023 [facility] Work Phone: [facility] Work Phone: Start: 05-07-2023 Non-patient / Non-visit No Kristina cormier Care Physician [facility] Work Phone: Start: 05-07-2023 [facility] Work Phone: [facility] Work Phone: Start: 05-06-2023 Non-patient / Non-visit No Kristina cormier Care Physician [facility] Work Phone: Start: 05-06-2023 [facility] Work Phone: [facility] Work Phone: Start: 05-05-2023 Non-patient / Non-visit No Kristina cormier Care Physician [facility] Work Phone: Start: 05-05-2023 [facility] Work Phone: [facility] Inpatient Physicians Work Phone: Start: 05-04-2023 End: 05-09-2023 Evaluation and management of inpatient [facility] Work Phone: [facility] Work Phone: Start: 05-04-2023 End: 05-09-2023 [facility] Work Phone: [facility]-Medical Surgical 3 Work Phone: Start: 05-04-2023 ambulatory [facility] Work Phone: [facility] Work Phone: Start: 05-04-2023 [facility] Work Phone: [facility]-Senior Accounting Clerk Inpatients Work Phone: Start: 05-04-2023 Non-patient / Non-visit No Kristina cormier Care Physician [facility] Inpatient Physicians Work Phone: Start: 05-04-2023 [facility] Work Phone: [facility] Inpatient Physicians Work Phone: Start: 04-15-2023 End: 04-15-2023 Emergency department patient visit No Primary Care Physician [facility]Emergency Department Work Phone: Start: 04-15-2023 End: 04-15-2023 [facility] Work Phone: [facility]-Emergency Department Work Phone: Start: 04-15-2023 End: 04-15-2023 Patient encounter procedure Abdirizak Peña APRN.KIER PLEATER Work Phone: [facility] Comment on above: SOB (shortness of br eath) (Primary Dx); Abdominal pain, unspecified abdominal location Start: 04-14-2023 End: 04-14-2023 Emergency department patient [facility] No [facility] Start: 04-14-2023 End: 04-14-2023 [facility] Work Phone: [facility]Emergency Department Work Phone: Start: 04-13-2023 End: 04-13-2023 Emergency department patient visit No Primary Care Physician [facility]Emergency Department Work Phone: Start: 04-13-2023 End: 04-13-2023 [facility] Work Phone: [facility]Emergency Department Work Phone: Start: 03-26-2023 ambulatory No Pcp ROSA Ruiz Buyanihan Start: 03-12-2023 Orders Only Pilar holm APRN.KIER PLEATER Work Phone: [facility] Comment on above: Chronic abdominal pa in (Primary Dx) Start: 03-10-2023 Telephone encounter Amy redding NP Work Phone: NOC Comment on above: Follow Up (Post Disc harge F/U - 1st attempt made. No answer./) Start: 03-09-2023 Telephone encounter Pilar barrios APRN.KIER PLEATER Work Phone: [facility] Comment on above: Consult Start: 03-06-2023 End: 03-06-2023 Emergency department patient visit [facility] Work Phone: [facility] Work Phone: Start: 03-06-2023 End: 03-06-2023 [facility] Work Phone: [facility]-Emergency Department Work Phone: Start: 03-02-2023 ambulatory No Pcp STAGE ELECTRICIAN George Mcdonnell Start: 03-02-2023 Telephone encounter Almita lara PA-C Work Phone: [facility] Provider Adult Comment on above: Appointment Start: 03-01-2023 End: 03-04-2023 Evaluation and management of inpatient [facility] Facility:[facility] Start: 03-01-2023 End: 03-01-2023 Patient encounter procedure Dewayne Doran MD Work Phone: Gastroenterology Comment on above: Vomiting, unspecifie d vomiting type, unspecified whether nausea present (Primary Dx); Chronic nausea Start: 02-25-2023 End: 02-26-2023 Emergency department patient visit [facility] Work Phone: [facility] Work Phone: Start: 02-25-2023 End: 02-26-2023 [facility] Work Phone: [facility]-Emergency Department Work Phone: Start: 02-24-2023 End: 02-24-2023 Emergency department patient visit No Primary Care Physician [facility]Emergency [facility] Work Phone: Start: 02-24-2023 End: 02-24-2023 [facility] Work Phone: [facility]Emergency Department Work Phone: Start: 02-23-2023 End: 02-23-2023 Patient encounter procedure Pilar Magdaleno STAGE ELECTRICIAN.[facility] Work Phone: [facility] [place] Comment on above: Chronic nausea (Prim crystal Dx); Chronic abdominal pain Start: 02-17-2023 End: 02-18-2023 Emergency department patient visit DEWAYNE BRAGA [facility] Start: 02-11-2023 End: 02-11-2023 ambulatory GERALDINE SILVA DO Facility:B Start: 02-10-2023 End: 02-11-2023 Observation HELENA SILVERMAN STAGE ELECTRICIAN-KIER PLEATER [facility] Start: 02-08-2023 End: 02-08-2023 Emergency department patient visit [facility] Start: 02-08-2023 End: 02-08-2023 [facility] Work [facility]: Start: 02-04-2023 End: 02-04-2023 Patient encounter procedure Irais GRADY Work Phone: [facility] Comment on above: Generalized abdomina l pain (Primary Dx) Start: 02-04-2023 End: 02-04-2023 Emergency department patient visit [facility]: Start: 02-04-2023 End: 02-04-2023 [facility] Work [facility]: Start: 01-25-2023 End: 01-25-2023 Emergency department patient visit [facility] Work [facility]: Start: 01-25-2023 End: 01-25-2023 [facility] Work [facility]: Start: 01-24-2023 End: 01-24-2023 Emergency department patient visit ABDIRIZAK RAMIREZ [facility] Start: 01-24-2023 End: 01-24-2023 Emergency department patient visit Abdirizak Ramirez MD Work Phone: [facility] Comment on above: Nausea and vomiting, unspecified vomiting type (Primary Dx); Syncope and collapse Start: 01-17-2023 End: 01-17-2023 Emergency department patient visit GERALDINE ROLAND [facility] Start: 01-15-2023 Non-patient / Non-visit [facility] Work Phone: [facility] Inpatient Physicians Work Phone: Start: 01-15-2023 [facility] Work Phone: [facility] Inpatient Physicians Work Phone: Start: 01-14-2023 End: 01-15-2023 Evaluation and management of inpatient [facility] Work Phone: [facility] Surgical 3 Work Phone: Start: 01-14-2023 End: 01-15-2023 observation encounter [facility] Work Phone: [facility] Work Phone: Start: 01-14-2023 End: 01-15-2023 [facility] Work Phone: [facility] Surgical 3 Work Phone: Start: 01-13-2023 End: 01-13-2023 Emergency department patient visit [facility] Work Phone: [facility]-Emergency Department Work Phone: Start: 01-13-2023 End: 01-13-2023 [facility] Work Phone: [facility]Emergency [facility] Work Phone: Start: 01-12-2023 End: 01-12-2023 Emergency department patient visit [facility] Work Phone: Start: 01-12-2023 End: 01-12-2023 [facility] Work Phone: [facility]Emergency Department Work Phone: Start: 01-11-2023 End: 01-12-2023 Emergency department patient visit [facility] Work Phone: Start: 01-11-2023 End: 01-12-2023 [facility] Work Phone: [facility]Emergency Department Work Phone: Start: 01-10-2023 End: 01-10-2023 Emergency department patient visit ESSIE DOWNS DO Facility:B Start: 01-10-2023 End: 01-10-2023 Emergency department patient visit ESSIE DOWNS DO [facility] Start: 01-09-2023 End: 01-09-2023 Emergency department patient visit [facility] Work Phone: Start: 01-09-2023 End: 01-09-2023 [facility] Work Phone: [facility]Emergency Department Work Phone: Start: 01-07-2023 End: 01-07-2023 Emergency department patient visit [facility] Work Phone: Start: 01-07-2023 End: 01-07-2023 [facility] Work Phone: [facility]Emergency Department Work Phone: Start: 11-25-2022 End: 11-25-2022 ambulatory [facility] Work Phone: [facility] Work Phone: Start: 11-25-2022 End: 11-25-2022 Patient encounter procedure [facility]Labor[facility] Work Phone: Start: 11-25-2022 End: 11-25-2022 [facility] Work Phone: [facility] Work Phone: Start: 11-19-2022 End: 11-19-2022 [facility] Start: 11-19-2022 End: 11-19-2022 [facility] Work Phone: [facility]Emergency Department Work Phone: Start: 11-17-2022 End: 11-17-2022 Office outpatient visit 25 minutes Andres Galaviz APRN.CNP Work Phone: [facility] Comment on above: Facial infection (Pr imary Dx) Start: 10-11-2022 Telephone encounter Irais GRADY Work Phone: [facility] Comment on above: Results Start: 10-08-2022 End: 10-08-2022 Patient encounter procedure Shamika Goins PA-C Work Phone: [facility] Comment on above: Toe infection (Prima ry Dx); Facial infection; History of MRSA infection Start: 08-14-2022 Non-patient / Non-visit Dr. Jessica Gibbons Work Phone: [facility] Inpatient Physicians Start: 08-13-2022 Non-patient / Non-visit Dr. Jessica Gibbons Work Phone: [facility] Inpatient Physicians Start: 08-12-2022 Non-patient / Non-visit Dr. Jessica Gibbons Work Phone: [facility] Inpatient Physicians Start: 08-12-2022 End: 08-15-2022 Evaluation and management of inpatient Dr. Sophy Gibbons Work Phone: [facility] Start: 06-29-2022 Non-patient / Non-visit No Kristina cormier Care Physician [facility] Inpatient Physicians Start: 06-28-2022 Non-patient / Non-visit No Kristina cormier Care Physician [facility] Inpatient Physicians Start: 06-27-2022 Non-patient / Non-visit No Kristina cormier Care Physician [facility] Inpatient Physicians Start: 06-26-2022 Non-patient / Non-visit No Kristina cormier Care Physician [facility] Inpatient Physicians Start: 06-25-2022 Non-patient / Non-visit No Kristina cormier Care Physician [facility] Inpatient Physicians Start: 06-24-2022 End: 06-29-2022 Evaluation and management of inpatient No Primary Care Physician [facility] Surgical 3 Start: 06-23-2022 End: 06-23-2022 ambulatory No Primary Care Physician [facility] Work Phone: Start: 06-23-2022 End: 06-23-2022 Patient encounter procedure No Primary Care Physician [facility]-Laboratory, Specimen Start: 05-07-2022 End: 05-07-2022 ambulatory No Primary Care Physician [facility] Work Phone: Start: 05-07-2022 End: 05-07-2022 Patient encounter procedure No Primary Care Physician [facility]Labor[facility] Start: 04-20-2022 End: 04-20-2022 ambulatory No Primary Care Physician [facility] Work Phone: Start: 04-20-2022 End: 04-20-2022 Departed Referred No Primary Care Physician [place] [id number] Start: 04-20-2022 Registered Referred No Primary Care Physician [place] [id number] Start: 04-13-2022 End: 04-13-2022 ambulatory No Primary Care Physician [facility] Work Phone: Start: 04-13-2022 End: 04-13-2022 Departed Referred No Primary Care Physician [place] [id number]/[facility] Start: 04-13-2022 Registered Referred No Primary Care Physician [place] [id number] Start: 04-10-2022 End: 04-10-2022 ambulatory No Primary Care Physician [facility] Work Phone: Start: 04-10-2022 End: 04-10-2022 Departed Referred No Primary Care Physician [facility] Start: 04-09-2022 Non-patient / Non-visit No Kristina cormier Care Physician [facility] Inpatient Physicians Start: 04-08-2022 Non-patient / Non-visit No Kristina cormier Care Physician [facility] [facility] Start: 04-07-2022 Non-patient / Non-visit No Kristina cormier Care Physician [facility] In[facility] Phys[facility] Start: 04-06-2022 Non-patient / Non-visit No Kristina casa Care Physician [facility] In[facility] Start: 04-06-2022 End: 04-09-2022 Evaluation and management of inpatient No Primary Care Physician [facility] 3 Start: 04-05-2022 End: 04-05-2022 Emergency department patient visit No Primary Care Physician [facility]Emergency Department Start: 03-23-2022 End: 03-23-2022 Subsequent hospital visit by physician Santiago [facility] Work Phone: Radiology Comment on above: Acute cough [R05.1] Start: 03-23-2022 End: 03-23-2022 Patient encounter procedure Sid Bravo MD Work Phone: [facility] Comment on above: Acute cough (Primary Dx); Mild intermittent asthmatic bronchitis without complication Start: 02-16-2022 End: 02-16-2022 Patient encounter procedure No Primary Care Physician [facility] Start: 02-02-2022 End: 02-02-2022 Patient encounter procedure Alyssa Jaime APRN.CNP Work Phone: [facility] Comment on above: Abnormal lung scan ( Primary Dx); Nausea and vomiting, unspecified vomiting type Start: 02-01-2022 End: 02-01-2022 Emergency department patient visit No Primary Care Physician [facility]Emergency Department Start: 01-30-2022 End: 01-30-2022 Patient encounter procedure No Primary Care Physician [facility]Labor[facility] Start: 01-30-2022 End: 01-30-2022 Patient encounter procedure No Primary Care Physician [facility] Start: 01-26-2022 End: 01-26-2022 Emergency department patient visit [facility]Emergency [facility] Start: 01-23-2022 End: 01-23-2022 Emergency department patient visit [facility]Emer[facility] Start: 01-22-2022 End: 01-22-2022 Emergency department patient visit [facility] Start: 01-16-2022 End: 01-16-2022 Emergency department patient visit [facility]Emergency Department Start: 11-16-2021 End: 11-16-2021 [facility] Start: 10-29-2021 End: 10-29-2021 [facility] Start: 10-24-2021 End: 10-24-2021 [facility] Start: 08-10-2021 End: 08-11-2021 [facility] Start: 05-15-2021 End: 05-15-2021 Subsequent hospital visit by physician Xr [facility] Work Phone: Radiology Comment on above: Cough [R05.9] Procedures Date Procedure Procedure Detail Performing Clinician Start: 12-31-2024 Estimated creatinine clearance Amy Solorzano JOB LITHOGRAPHER-C Work Phone: Start: 12-30-2024 Methadone measurement, urine Amy Solorzano JOB LITHOGRAPHER-C Work Phone: Start: 12-30-2024 Urnls dip stick/tabl et reagent auto microscopy Amy Rashad JOB LITHOGRAPHER-C Work Phone: Start: 12-30-2024 Estimated creatinine clearance Amy Rashad JOB LITHOGRAPHER-C Work Phone: Start: 12-30-2024 Osmolality measureme nt, serum Amy Solorzano JOB LITHOGRAPHER-C Work Phone: Start: 12-30-2024 Serum inorganic phos phate measurement Amy Solorzano JOB LITHOGRAPHER-C Work Phone: Start: 12-25-2024 Ultrasonography of abdomen Amy Rashad JOB LITHOGRAPHER-C Work Phone: Start: 11-28-2024 Estimated creatinine clearance Amy Rashad JOB LITHOGRAPHER-C Work Phone: Start: 11-27-2024 Computed tomography of abdomen and pelvis with contrast Amy Rashad JOB LITHOGRAPHER-C Work Phone: Start: 11-26-2024 Plain X-ray abdomen Glendy yvette Solorzano JOB LITHOGRAPHER-C Work Phone: Start: 11-25-2024 Blood culture Amykeiko kim JOB LITHOGRAPHER-C Work Phone: Start: 11-25-2024 Computed tomography of abdomen and pelvis with intravenous contrast Amy Solorzano JOB LITHOGRAPHER-C Work Phone: Start: 11-25-2024 Urnls dip stick/tabl et reagent auto microscopy Amy Solorzano JOB LITHOGRAPHER-C Work Phone: Start: 11-25-2024 Plain X-ray abdomen Glendy Solorzano JOB LITHOGRAPHER-C Work Phone: Start: 11-25-2024 Estimated creatinine clearance Amy Solorzano JOB LITHOGRAPHER-C Work Phone: Start: 10-17-2024 Vitamin D, 25-hydrox y measurement Amy Solorzano JOB LITHOGRAPHER-C Work Phone: Comment on above: Vitamin D [...] Care Physician Start: 05-18-2023 Mycology culture No [facility] Physician Start: 05-08-2023 Plain X-ray abdomen [facility] Work Phone: Start: 05-07-2023 Incision and drainag e of abscess [facility] Work Phone: Start: 05-04-2023 MRI of lower extremity [facility] Work Phone: Start: 05-04-2023 Incision and drainag e of abscess [facility] Work Phone: Start: 05-04-2023 Anaerobic microbial culture No Primary Care Physician Start: 05-04-2023 Bacteria identified in Blood by Culture No Primary Care Physician Start: 05-04-2023 Fungus stain method No Primary Care Physician Start: 05-04-2023 Investigation of tra nsfusion reaction [facility] Work Phone: Start: 05-04-2023 Microbial culture, routine [facility] Work Phone: Start: 05-04-2023 Mycology culture No [facility] Physician Start: 05-04-2023 [facility] Work Phone: Start: 05-04-2023 X-ray of both feet [facility] Work Phone: Start: 03-06-2023 Computed tomography of abdomen and pelvis with contrast [facility] Work Phone: Start: 03-06-2023 X-ray of both feet [facility] Work Phone: Start: 02-26-2023 Computed tomography of abdomen and pelvis with intravenous contrast [facility] Work Phone: Start: 02-24-2023 Plain X-ray of toe [facility] Work Phone: Start: 02-17-2023 Urinalysis [facility] M[facility] Comment on above: Result Comment: URIN ALYSIS Performed By: [id number] #### [facility],[address] [place] [address] Start: 02-08-2023 Computed tomography of abdomen and pelvis with contrast [facility] Work Phone: Start: 01-24-2023 Ecg routine [...] Comment: URIN ALYSIS Performed By: #### [id number] #### [facility],[address] [place] [address] Start: 01-14-2023 Urine culture [facility] Work Phone: Start: 01-14-2023 Computed tomography of abdomen and pelvis with intravenous contrast [facility] Work Phone: Start: 08-12-2022 US urinary [...] ches t 2 views Andres Lopezjosé luis STAGE ELECTRICIAN.KIER PLEATER Work Phone: Acid fast bacilli culture Dr [...] of 2) Zoster Vaccines (1 of 2) [facility] Start: 12-31-2024 Following clinical pathway protocol [facility] Start: 12-31-2024 Patient discharge [facility] Start: 12-30-2024 [facility] Start: 12-30-2024 Bacteria identified in Urine by Culture Urine Culture [facility] Start: 12-30-2024 Assessment of risk of venous thromboembolism [facility] Start: 12-30-2024 Continuous pulse oximetry [facility] Start: 12-30-2024 End: 12-30-2024 Following clinical pathway protocol [facility] Start: 12-30-2024 Incentive spirometry [facility] Start: 12-30-2024 Insertion of catheter into peripheral vein [facility] Start: 12-30-2024 Lab findings surveillance [facility] Start: 12-30-2024 Measuring intake and output [facility] Start: 12-30-2024 Notification of physician [facility] Start: 12-30-2024 Oxygen therapy [facility] Start: 12-30-2024 Patient education [facility] Start: 12-30-2024 Providing care according to standard [facility] Start: 12-30-2024 Vital signs measurements [facility] Start: 12-30-2024 [facility] Start: 12-30-2024 Verification routine [facility] Start: 12-30-2024 Hospital admission, emergency, from emergency room, medical nature [facility] Start: 12-30-2024 Admission procedure [facility] Start: 12-30-2024 End: 12-31-2024 [facility] Start: 12-30-2024 Osmolality measurement, serum [facility] Start: 12-30-2024 Serum inorganic phosphate measurement [facility] Start: 12-30-2024 Patient referral to dietitian [facility] Start: 11-28-2024 Patient discharge [facility] Start: 11-28-2024 [facility] Start: 11-26-2024 End: 11-27-2024 [facility] Start: 11-26-2024 Inhalation therapy procedure [facility] Start: 11-25-2024 Following clinical pathway protocol [facility] Start: 11-25-2024 Assessment of risk of venous thromboembolism [facility] Start: 11-25-2024 Care regimes management [facility] Start: 11-25-2024 Insertion of catheter into peripheral vein [facility] Start: 11-25-2024 Notification of physician [facility] Start: 11-25-2024 Providing care according to standard [facility] Start: 11-25-2024 Provision of activity privileges [facility] Start: 11-25-2024 Referral to general surgeon [facility] Start: 11-25-2024 Referral to occupational therapist [facility] Start: 11-25-2024 Referral to service [facility] Start: 11-25-2024 End: 11-25-2024 [facility] Start: 11-25-2024 Hospital admission, emergency, from emergency room, medical nature [facility] Start: 11-25-2024 Bacteria identified in Blood by Culture Blood Culture [facility] Start: 11-25-2024 Blood culture Blood Culture [facility] Start: 11-25-2024 Admission procedure [facility] Start: 11-25-2024 Verification routine [facility] Start: 11-25-2024 [facility] Start: 03-12-2024 Covid-19 Vaccine () Covid-19 Vaccine () [facility] Start: 03-12-2024 Influenza vaccination Influenza Vaccine (#1) [facility] Start: 02-24-2024 ANNUAL PCP TEAM CHRONIC DISEASE VISIT ANNUAL PCP TEAM CHRONIC DISEASE VISIT [facility] Start: 01-12-2024 Hemoglobin A1c measurement HbA1C [facility] Start: 07-23-2023 Amputation foot transmetarsal AMPUTATION THRU METATARSAL [facility] Start: 07-23-2023 Anes open proc bones lower leg/ankle/foot nos ANESTH LOWER LEG BONE SURG [facility] Start: 07-23-2023 Injection aa&/strd sciatic nerve NJX AA&/STRD SCIATIC NRV IMG [facility] Start: 07-23-2023 Musc myocutaneous/fasciocutaneous flap lxtr MUSCLE-SKIN GRAFT LEG [facility] Start: 07-23-2023 Smr prim src gram/giemsa stain bct fungi/cell SMEAR GRAM STAIN [facility] Start: 07-23-2023 [facility] Start: 07-23-2023 Patient discharge [facility] Start: 07-23-2023 X-ray of both feet [facility] Start: 07-23-2023 XR Foot GE 3 Views [facility] Start: 07-12-2023 [facility] Start: 06-28-2023 [facility] Start: 06-27-2023 [facility] Start: 06-27-2023 Blood chemistry [facility] Start: 06-26-2023 [facility] Start: 06-25-2023 [facility] Start: 05-21-2023 Hemoglobin A1c measurement HbA1C [facility] Start: 05-21-2023 Hemoglobin A1c/Hemoglobin.total in Blood HBA1C [facility] Start: 05-18-2023 Anaerobic microbial culture Anaerobic Culture [facility] Start: 05-18-2023 [facility] Start: 05-09-2023 Patient discharge [facility] Start: 05-08-2023 Inhalation therapy procedure [facility] Start: 05-07-2023 [facility] Start: 05-04-2023 [facility] Start: 05-04-2023 Ambulation without limitation [facility] Start: 05-04-2023 Assessment of risk of venous thromboembolism [facility] Start: 05-04-[address] [facility] Start: 05-04-2023 Consultation for treatment [facility] Start: 05-04-2023 Insertion of catheter into peripheral vein [facility] Start: 05-04-2023 Notification of physician [facility] Start: 05-04-2023 Patient referral to dietitian [facility] Start: 05-04-2023 Providing care according to standard [facility] Start: 05-04-2023 [facility] Start: 05-04-2023 Following clinical pathway protocol [facility] Start: 05-04-2023 Incision and drainage of abscess [facility] Start: 05-04-2023 Admission procedure [facility] Start: 05-04-2023 Hospital admission, emergency, from emergency room, medical nature [facility] Start: 05-04-2023 End: 05-04-2023 Blood culture [facility] Start: 05-04-2023 End: 05-04-2023 [facility] Start: 05-04-2023 [facility] Start: 04-15-2023 [facility] Start: 03-12-2023 Covid-19 Vaccine ( season) Covid-19 Vaccine () [facility] Start: 03-12-2023 Influenza vaccination [facility] Start: 01-25-2023 Blood chemistry [facility] Start: 01-25-2023 Computed tomography of abdomen and pelvis with intravenous contrast Abdomen/Pelvis W IV Cont ONLY [facility] Start: 01-25-2023 Electrocardiographic procedure [facility] Start: 01-25-2023 Lipase measurement [facility] Start: 01-25-2023 [facility] Start: 01-19-2023 [facility] Start: 01-18-2023 [facility] Start: 01-17-2023 [facility] Start: 01-16-2023 [facility] Start: 01-15-2023 Patient discharge [facility] Start: 01-14-2023 Referral to service [facility] Start: 01-14-2023 Assessment of risk of venous thromboembolism [facility] Start: 01-14-[address] [facility] Start: 01-14-2023 Insertion of catheter into peripheral vein [facility] Start: 01-14-2023 Measuring intake and output [facility] Start: 01-14-2023 Patient referral to dietitian [facility] Start: 01-14-2023 Providing care according to standard [facility] Start: 01-14-2023 Provision of activity privileges [facility] Start: 01-14-2023 [facility] Start: 01-14-2023 Following clinical pathway protocol [facility] Start: 01-14-2023 Verification routine [facility] Start: 01-14-2023 Admission procedure [facility] Start: 01-12-2023 US Gallbladder [facility] Start: 01-12-2023 US Pelvis transvaginal [facility] Start: 10-08-2022 End: 12-08-2022 Bacteria identified in Wound by Culture ABSCESS AND WOUND CULTURE WITH GRAM STAIN Microbiology Routine Toe infection Expected: 10/08/2022, Expires: 12/08/2022 [facility] Work Phone: Comment on above: Expected: 10/08/2022, Expires: Start: 08-15-2022 Patient discharge [facility] Start: 08-14-2022 Provision of activity privileges [facility] Start: 08-13-2022 End: 08-13-2022 Blood culture [facility] Start: 08-13-2022 [facility] Start: 08-13-2022 Inhalation therapy procedure [facility] Start: 08-12-2022 Following clinical pathway protocol [facility] Start: 08-12-2022 Assessment of risk of venous thromboembolism [facility] Start: 08-12-[address] [facility] Start: 08-12-2022 Insertion of catheter into peripheral vein [facility] Start: 08-12-2022 Measuring intake and output [facility] Start: 08-12-2022 Notification of physician [facility] Start: 08-12-2022 Providing care according to standard [facility] Start: 08-12-2022 Provision of activity privileges [facility] Start: 08-12-2022 [facility] Start: 08-12-2022 Admission procedure [facility] Start: 08-12-2022 [facility] Start: 08-12-2022 Patient referral to dietitian [facility] Start: 07-12-2022 DEPRESSION ASSESSMENT DEPRESSION ASSESSMENT [facility] Start: 06-30-2022 Blood chemistry [facility] Work Phone: Start: 06-29-2022 Patient discharge [facility] Start: 06-29-2022 Blood chemistry [facility] Work Phone: Start: 06-28-2022 Blood chemistry [facility] Work Phone: Start: 06-27-2022 Blood chemistry [facility] Work Phone: Start: 06-26-2022 Wound care [facility] Start: 06-26-2022 Elevation of affected extremity [facility] Start: 06-26-2022 [facility] Start: 06-26-2022 Debridement Debridement Wound (Right) [facility] Work Phone: Start: 06-26-2022 Blood chemistry [facility] Work Phone: Start: 06-25-2022 Referral to service [facility] Start: 06-25-2022 Consultation [facility] Start: 06-24-2022 Assessment of risk of venous thromboembolism [facility] Start: 06-24-[address] [facility] Start: 06-24-2022 Consultation for treatment [facility] Start: 06-24-2022 Insertion of catheter into peripheral vein [facility] Start: 06-24-2022 Providing care according to standard [facility] Start: 06-24-2022 Provision of activity privileges [facility] Start: 06-24-2022 Referral to occupational therapist [facility] Start: 06-24-2022 Referral to rigging and controls aircraft mechanic [facility] Start: 06-24-2022 Referral to service [facility] Start: 06-24-2022 [facility] Start: 06-24-2022 Following clinical pathway protocol [facility] Start: 06-24-2022 End: 06-25-2022 [facility] Start: 06-24-2022 Verification routine [facility] Work Phone: Start: 06-24-2022 Admission procedure [facility] Start: 06-24-2022 End: 06-24-2022 Blood culture [facility] Work Phone: Start: 06-24-2022 Patient referral to dietitian [facility] Start: 06-23-2022 Cul bact aerobic addl meths definitive ea isol CULTURE AEROBIC IDENTIFY [facility] Start: 06-23-2022 Cul bact xcpt urine blood/stool aerobic isol CULTURE OTHR SPECIMN AEROBIC [facility] Start: 06-23-2022 Iadna s aureus amplified probe tq STAPH A DNA AMP PROBE [facility] Start: 06-23-2022 Smr prim src gram/giemsa stain bct fungi/cell SMEAR GRAM STAIN [facility] Start: 06-23-2022 [facility] Work Phone: Start: 04-27-2022 Hemoglobin A1c/Hemoglobin.total in Blood HBA1C [facility] Start: 04-09-2022 Patient discharge [facility] Work Phone: Start: 04-07-2022 Consultation [facility] Work Phone: Start: 04-07-2022 End: 04-07-2022 Referral to service [facility] Work Phone: Start: 04-06-2022 Elevation of affected extremity [facility] Work Phone: Start: 04-06-2022 [facility] Work Phone: Start: 04-06-2022 End: 04-06-2022 Following clinical pathway protocol [facility] Work Phone: Start: 04-06-2022 Ambulation without limitation [facility] Work Phone: Start: 04-06-2022 Assessment of risk of venous thromboembolism [facility] Work Phone: Start: 04-06-[address] [facility] Work Phone: Start: 04-06-2022 Consultation for treatment [facility] Work Phone: Start: 04-06-2022 Elevation of affected extremity [facility] Work Phone: Start: 04-06-2022 Insertion of catheter into peripheral vein [facility] Work Phone: Start: 04-06-2022 Notification of physician [facility] Work Phone: Start: 04-06-2022 Patient referral to dietitian [facility] Work Phone: Start: 04-06-2022 Providing care according to standard [facility] Work Phone: Start: 04-06-2022 Referral to rigging and controls aircraft mechanic [facility] Work Phone: Start: 04-06-2022 Wound care [facility] Work Phone: Start: 04-06-2022 [facility] Work Phone: Start: 04-06-2022 Verification routine [facility] Work Phone: Start: 04-06-2022 Admission procedure [facility] Work Phone: Start: 04-06-2022 End: 04-07-2022 [facility] Work Phone: Start: 04-06-2022 Patient referral to dietitian [facility] Work Phone: Start: 04-05-2022 Assay of lactate ASSAY OF LACTIC ACID [facility] Work Phone: Start: 04-05-2022 Basic metabolic panel calcium total METABOLIC PANEL TOTAL CA [facility] Work Phone: Start: 04-05-2022 Blood count complete auto&auto difrntl wbc COMPLETE CBC W/AUTO DIFF WBC [facility] Work Phone: Start: 04-05-2022 Culture bacterial blood aerobic w/id isolates BLOOD CULTURE FOR BACTERIA [facility] Work Phone: Start: 04-05-2022 Emergency department visit moderate severity EMERGENCY DEPT VISIT [facility] Work Phone: Start: 04-05-2022 Iv infusion ther proph addl sequential to 1 hr TX/PROPH/DG ADDL SEQ IV INF [facility] Work Phone: Start: 04-05-2022 Iv infusion therapy prophylaxis/dx ea hour THER/PROPH/DIAG IV INF ADDON [facility] Work Phone: Start: 04-05-2022 Iv infusion therapy/prophylaxis /dx 1st to 1 hr THER/PROPH/DIAG IV INF INIT [facility] Work Phone: Start: 04-05-2022 Radex foot complete minimum 3 views X-RAY EXAM OF FOOT [facility] Work Phone: Start: 04-05-2022 End: 04-05-2022 Blood culture [facility] Work Phone: Start: 03-23-2022 End: 04-06-2022 SARS-CoV-2 (COVID-19) RNA [Presence] in Respiratory specimen by REBECCA with probe detection 2019 CORONAVIRUS Microbiology Routine Acute cough Mild intermittent asthmatic bronchitis without complication Expected: 03/23/2022, Expires: 04/06/2022 [facility] Work Phone: Comment on above: Expected: 03/23/2022, Expires: Start: 03-12-2022 Influenza vaccination INFLUENZA (#1) [facility] Start: 01-30-2022 Celiac disease screen [facility] Work Phone: Start: 01-30-2022 Immunoglobulin measurement [facility] Work Phone: Start: 01-30-2022 Serum immunofixation [facility] Work Phone: Start: 01-30-[address] [facility] Work Phone: Start: 01-30-2022 [facility] Work Phone: Start: 01-28-2022 HPV TESTING HPV TESTING [facility] Start: 01-28-2022 Screening for malignant neoplasm of cervix [facility] Start: 08-25-2021 COVID-19 VACCINE (2 - Moderna series) COVID-19 VACCINE (2 - Moderna series) [facility] Start: 03-10-2020 3 comp foot exam completed DIABETIC FOOT EXAM [facility] Start: 03-10-2020 ANNUAL PCP TEAM CHRONIC DISEASE VISIT ANNUAL PCP TEAM CHRONIC DISEASE VISIT [facility] Start: 03-10-2020 Diabetic foot examination Diabetic Foot Exam [facility] Start: 05-03-2018 PAP TESTING PAP TESTING [facility] Start: 05-03-2018 Screening for malignant neoplasm of cervix Pap Testing [facility] Start: 05-03-2016 Screening for malignant neoplasm of cervix Cervical Cancer Screening [facility] Start: 06-07-2014 Hepatitis B surface antibody level LDL CHOLESTEROL [facility] Start: 04-12-2014 Hepatitis B screening URINE ALBUMIN:CREATININE RATIO [facility] Start: 03-31-2014 Glaucoma screening Dilated Retinal Exam [facility] Start: 03-31-2014 Hepatitis C antibody, confirmatory test DILATED RETINAL EXAM [facility] Start: 03-06-2014 PNEUMOCOCCAL (2 - PCV) PNEUMOCOCCAL (2 - PCV) [facility] Start: 03-06-2014 Pneumococcal vaccination [facility] Start: 03-06-2014 Pneumococcal Vaccine: Pediatrics (0 to 5 Years) and At-Risk Patients (6 to 64 Years) (2 - PCV) Pneumococcal Vaccine: Pediatrics (0 to 5 Years) and At-Risk Patients (6 to 64 Years) (2 - PCV) [facility] Start: 01-28-2013 Screening for malignant neoplasm of cervix Pap Smear [facility] Start: 01-28-2011 DTaP/Tdap/Td Vaccines (1 - Tdap) DTaP/Tdap/Td Vaccines (1 - Tdap) [facility] Start: 01-28-2011 HEPATITIS B (1 of 3 - Risk 3-dose series) HEPATITIS B (1 of 3 - Risk 3-dose series) [facility] Start: 01-28-2011 Hepatitis B Vaccine (1 of 3 - 19+ 3-dose series) Hepatitis B Vaccine (1 of 3 - 19+ 3-dose series) [facility] Start: 01-28-2011 Urine microalbumin profile [facility] Start: 01-28-2010 HEPATITIS C SCREENING HEPATITIS C SCREENING [facility] Start: 01-28-2010 Hepatitis C screening Hepatitis C Screening [facility] Start: 01-28-2010 HIV SCREENING HIV SCREENING [facility] Start: 01-28-2010 HIV screening HIV Screening [facility] Start: 2004 Adult depression screening assessment DEPRESSION SCREENING [facility] Start: 01-28-2002 Diabetic foot examination Diabetes: Foot Exam [facility] Start: 01-28-2002 Glaucoma screening Diabetes: Retinopathy Screening [facility] Start: 01-28-2002 Preventive dental service Diabetes: Dental Exam [facility] Start: 01-28-1993 MMR Vaccines (1 of 1 - Standard series) MMR Vaccines (1 of 1 - Standard series) [facility] Start: 01-28-1993 Varicella vaccination Varicella Vaccines (1 of 2 - 2-dose childhood series) [facility] Start: 1992 COVID-19 VACCINE (#1) COVID-19 VACCINE (#1) [facility] Start: 1992 Hemoglobin A1c measurement Diabetes: Hemoglobin A1C [facility] Start: 1992 HEPATITIS B (1 of 3 - 3-dose series) HEPATITIS B (1 of 3 - 3-dose series) [facility] Start: 1992 Hepatitis B Vaccine (1 of 3 - 3-dose series) Hepatitis B Vaccine (1 of 3 - 3-dose series) [facility] Start: 1992 Hepatitis B Vaccines (1 of 3 - 3-dose series) Hepatitis B Vaccines (1 of 3 - 3-dose series) [facility] Start: 1992 HIV screening HIV Screening [facility] Start: 1992 Lipid panel Lipid Panel [facility] Acetone [Presence] i n Serum or Plasma [facility] Acid fast bacilli culture [facility] Work Phone: Acid fast bacilli culture [facility] Alanine aminotransfe rase [Enzymatic activity/volume] in Serum or Plasma [facility] Alanine aminotransfe rase [Enzymatic activity/volume] in Serum or Plasma [facility] Alanine aminotransfe rase [Enzymatic activity/volume] in Serum or Plasma [facility] Alanine aminotransfe rase [Enzymatic activity/volume] in Serum or Plasma [facility] Alanine aminotransfe rase [Enzymatic activity/volume] in Serum or Plasma [facility] Albumin [Mass/volume ] in Serum or Plasma [facility] Albumin [Mass/volume ] in Serum or Plasma [facility] Albumin [Mass/volume ] in Serum or Plasma [facility] Albumin [Mass/volume ] in Serum or Plasma [facility] Albumin [Mass/volume ] in Serum or Plasma [facility] Albumin [Moles/volum e] in Serum or Plasma [facility] Work Phone: Albumin/Globulin ratio [facility] Work Phone: Alkaline phosphatase [Enzymatic activity/volume] in Serum or Plasma [facility] Alkaline phosphatase [Enzymatic activity/volume] in Serum or Plasma [facility] Alkaline phosphatase [Enzymatic activity/volume] in Serum or Plasma [facility] Alkaline phosphatase [Enzymatic activity/volume] in Serum or Plasma [facility] Alkaline phosphatase [Enzymatic activity/volume] in Serum or Plasma [facility] Anion gap measurement [facility] Work Phone: Anion gap measurement [facility] Anion gap measurement [facility] Anion gap measurement [facility] Anion gap measurement [facility] Anion gap measurement [facility] Anion gap measurement [facility] Antibody to lupus La protein measurement [facility] Work Phone: Antibody to SS-A measurement [facility] Work Phone: Aspartate aminotrans ferase [Enzymatic activity/volume] in Serum or Plasma [facility] Aspartate aminotrans ferase [Enzymatic activity/volume] in Serum or Plasma [facility] Aspartate aminotrans ferase [Enzymatic activity/volume] in Serum or Plasma [facility] Aspartate aminotrans ferase [Enzymatic activity/volume] in Serum or Plasma [facility] Aspartate aminotrans ferase [Enzymatic activity/volume] in Serum or Plasma [facility] Bacteria identified in Blood by Culture Blood Culture [facility] Bacteria identified in Unspecified specimen by Anaerobe culture [facility] Work Phone: Bacteria identified in Unspecified specimen by Anaerobe culture [facility] Bacteria identified in Urine by Culture Urine Culture [facility] Beta hydroxybutyrate [Mass/volume] in Serum or Plasma [facility] Bilirubin measurement, urine [facility] Bilirubin measurement, urine [facility] Bilirubin, total measurement [facility] Bilirubin, total measurement [facility] Bilirubin, total measurement [facility] Bilirubin, total measurement [facility] Bilirubin, total measurement [facility] Bilirubin.direct [Mass/volume] in Serum or Plasma [facility] Blood culture [facility] Work Phone: BUN/Creatinine ratio [facility] Work Phone: BUN/Creatinine ratio [facility] BUN/Creatinine ratio [facility] BUN/Creatinine ratio [facility] BUN/Creatinine ratio [facility] BUN/Creatinine ratio [facility] BUN/Creatinine ratio [facility] Calcium [Mass/volume ] in Serum or Plasma [facility] Work Phone: Calcium [Mass/volume ] in Serum or Plasma [facility] Calcium [Mass/volume ] in Serum or Plasma [facility] Calcium [Mass/volume ] in Serum or Plasma [facility] Calcium [Mass/volume ] in Serum or Plasma [facility] Calcium [Mass/volume ] in Serum or Plasma [facility] Calcium [Mass/volume ] in Serum or Plasma [facility] Carbon dioxide, tota l [Moles/volume] in Serum or Plasma [facility] Work Phone: Carbon dioxide, tota l [Moles/volume] in Serum or Plasma [facility] Carbon dioxide, tota l [Moles/volume] in Serum or Plasma [facility] Carbon dioxide, tota l [Moles/volume] in Serum or Plasma [facility] Carbon dioxide, tota l [Moles/volume] in Serum or Plasma [facility] Carbon dioxide, tota l [Moles/volume] in Serum or Plasma [facility] Carbon dioxide, tota l [Moles/volume] in Serum or Plasma [facility] CBC W Auto Different ial panel - Blood [facility] Centromere protein B Ab [Units/volume] in Serum [facility] Work Phone: Chloride [Moles/volu me] in Serum or Plasma [facility] Work Phone: Chloride [Moles/volu me] in Serum or Plasma [facility] Chloride [Moles/volu me] in Serum or Plasma [facility] Chloride [Moles/volu me] in Serum or Plasma [facility] Chloride [Moles/volu me] in Serum or Plasma [facility] Chloride [Moles/volu me] in Serum or Plasma [facility] Chloride [Moles/volu me] in Serum or Plasma [facility] Choriogonadotropin.b eta subunit ( test) [Presence] in Serum or Plasma [facility] Chromatin Ab [Units/ volume] in Serum or Plasma [facility] Work Phone: Comprehensive metabo lic 2000 panel - Serum or Plasma [facility] Creatinine [Moles/vo lume] in Serum or Plasma [facility] Work Phone: Creatinine [Moles/vo lume] in Serum or Plasma [facility] Creatinine [Moles/vo lume] in Serum or Plasma [facility] Creatinine [Moles/vo lume] in Serum or Plasma [facility] Creatinine [Moles/vo lume] in Serum or Plasma [facility] Creatinine [Moles/vo lume] in Serum or Plasma [facility] Creatinine [Moles/vo lume] in Serum or Plasma [facility] DNA double strand Ab [Units/volume] in Serum [facility] Work Phone: Electrophoresis: [id number] [facility] Work Phone: Electrophoresis: gabriella ma globulin [facility] Work Phone: Erythrocyte mean cor puscular volume determination [facility] Erythrocyte sediment ation rate [facility] Globulin measurement [facility] Work Phone: Glucose [Mass/volume ] in Serum or Plasma [facility] Work Phone: Glucose [Mass/volume ] in Serum or Plasma [facility] Glucose [Mass/volume ] in Serum or Plasma [facility] Glucose [Mass/volume ] in Serum or Plasma [facility] Glucose [Mass/volume ] in Serum or Plasma [facility] Glucose [Mass/volume ] in Serum or Plasma [facility] Glucose [Mass/volume ] in Serum or Plasma [facility] Hematocrit [Volume F raction] of Blood [facility] Work Phone: Hematocrit [Volume F raction] of Blood [facility] Hematocrit [Volume F raction] of Blood [facility] Hematocrit [Volume F raction] of Blood [facility] Hematocrit [Volume F raction] of Blood [facility] Hematocrit [Volume F raction] of Blood [facility] Hematocrit [Volume F raction] of Blood [facility] Hemoglobin [Mass/vol ume] in Blood [facility] Work Phone: Hemoglobin [Mass/vol ume] in Blood [facility] Hemoglobin [Mass/vol ume] in Blood [facility] Hemoglobin [Mass/vol ume] in Blood [facility] Hemoglobin [Mass/vol ume] in Blood [facility] Hemoglobin [Mass/vol ume] in Blood [facility] Hemoglobin [Mass/vol ume] in Blood [facility] Hemoglobin [Presence ] in Urine [facility] Hemoglobin [Presence ] in Urine [facility] IgA [Mass/volume] in Serum or Plasma [facility] Work Phone: IgE [Units/volume] i n Serum or Plasma [facility] Work Phone: IgG [Mass/volume] in Serum or Plasma [facility] Work Phone: IgM [Mass/volume] in Serum or Plasma [facility] Work Phone: Neva-1 extractable nuc lear Ab [Units/volume] in Serum [facility] Work Phone: Lactic acid measurement [facility] Work Phone: Leukocytes [#/volume ] in Blood [facility] Work Phone: Leukocytes [#/volume ] in Blood [facility] Leukocytes [#/volume ] in Blood [facility] Leukocytes [#/volume ] in Blood [facility] Leukocytes [#/volume ] in Blood [facility] Leukocytes [#/volume ] in Blood [facility] Leukocytes [#/volume ] in Blood [facility] Magnesium measurement [facility] Mean corpuscular hem oglobin concentration determination [facility] Work Phone: Mean corpuscular hem oglobin concentration determination [facility] Mean corpuscular hem oglobin concentration determination [facility] Mean corpuscular hem oglobin concentration determination [facility] Mean corpuscular hem oglobin concentration determination [facility] Mean corpuscular hem oglobin concentration determination [facility] Mean corpuscular hem oglobin concentration determination [facility] Mean corpuscular hem oglobin determination [facility] Work Phone: Mean corpuscular hem oglobin determination [facility] Mean corpuscular hem oglobin determination [facility] Mean corpuscular hem oglobin determination [facility] Mean corpuscular hem oglobin determination [facility] Mean corpuscular hem oglobin determination [facility] Mean corpuscular hem oglobin determination [facility] Measurement of immun oglobulin A in serum specimen [facility] Work Phone: Measurement of keton es in urine using dipstick [facility] Measurement of keton es in urine using dipstick [facility] Measurement of renal function [facility] Work Phone: Measurement of renal function [facility] Measurement of renal function [facility] Measurement of renal function [facility] Measurement of renal function [facility] Measurement of renal function [facility] Measurement of renal function [facility] Microbial culture, routine Wound Culture [facility] Work Phone: Microscopic urinalysis [facility] Work Phone: Microscopic urinalysis [facility] Microscopic urinalysis [facility] Mycobacterium sp marko ntified in Unspecified specimen by Organism specific culture [facility] Work Phone: Mycobacterium sp marko ntified in Unspecified specimen by Organism specific culture [facility] Neutrophil count [facility] Work Phone: Neutrophil count [facility] Neutrophil count [facility] Neutrophil count [facility] Neutrophil count [facility] Neutrophil count [facility] Neutrophil count [facility] Neutrophil cytoplasm ic Ab.classic [Units/volume] in Serum [facility] Work Phone: Neutrophil percent differential count [facility] Work Phone: Neutrophil percent differential count [facility] Neutrophil percent differential count [facility] Neutrophil percent differential count [facility] Neutrophil percent differential count [facility] Neutrophil percent differential count [facility] Neutrophil percent differential count [facility] End: 03-31-2024 NM Stomach Views for gastric emptying solid phase W radionuclide PO NM GASTRIC EMPTYING SOLID Radiology Routine Nausea 1 Occurrences starting 03/02/2023 until 03/31/2024 [facility] Work Phone: Comment on above: 1 Occurrences starting 03/02/2023 until 03/31/2024 Organism count, micr oscopic method [facility] Work Phone: P-ANCA measurement [facility] Work Phone: Patient Education [facility] Work Phone: Patient referral [facility] Work Phone: pH of Urine [facility] pH of Urine [facility] Platelets [#/volume] in Blood [facility] Work Phone: Platelets [#/volume] in Blood [facility] Platelets [#/volume] in Blood [facility] Platelets [#/volume] in Blood [facility] Platelets [#/volume] in Blood [facility] Platelets [#/volume] in Blood [facility] Platelets [#/volume] in Blood [facility] Potassium [Moles/vol ume] in Serum or Plasma [facility] Work Phone: Potassium [Moles/vol ume] in Serum or Plasma [facility] Potassium [Moles/vol ume] in Serum or Plasma [facility] Potassium [Moles/vol ume] in Serum or Plasma [facility] Potassium [Moles/vol ume] in Serum or Plasma [facility] Potassium [Moles/vol ume] in Serum or Plasma [facility] Potassium [Moles/vol ume] in Serum or Plasma [facility] Protein electrophore sis panel - Serum or Plasma [facility] Work Phone: Radionuclide gastric emptying study [facility] Red blood cell count [facility] Work Phone: Red blood cell count [facility] Red blood cell count [facility] Red blood cell count [facility] Red blood cell count [facility] Red blood cell count [facility] Red blood cell count [facility] Red cell distributio n width determination [facility] Work Phone: Red cell distributio n width determination [facility] Red cell distributio n width determination [facility] Red cell distributio n width determination [facility] Red cell distributio n width determination [facility] Red cell distributio n width determination [facility] Red cell distributio n width determination [facility] SCL-70 extractable n uclear Ab [Units/volume] in Serum by Immunoassay [facility] Work Phone: Serum protein electrophoresis [facility] Work Phone: Jang extractable nu clear Ab [Presence] in Serum [facility] Work Phone: Sodium [Moles/volume ] in Serum or Plasma [facility] Work Phone: Sodium [Moles/volume ] in Serum or Plasma [facility] Sodium [Moles/volume ] in Serum or Plasma [facility] Sodium [Moles/volume ] in Serum or Plasma [facility] Sodium [Moles/volume ] in Serum or Plasma [facility] Sodium [Moles/volume ] in Serum or Plasma [facility] Sodium [Moles/volume ] in Serum or Plasma [facility] Specific gravity of Urine [facility] Specific gravity of Urine [facility] Tissue transglutamin ase IgA Ab [Units/volume] in Serum [facility] Work Phone: Total protein measurement [facility] Total protein measurement [facility] Total protein measurement [facility] Total protein measurement [facility] Total protein measurement [facility] Urea nitrogen [Mass/ volume] in Serum or Plasma [facility] Work Phone: Urea nitrogen [Mass/ volume] in Serum or Plasma [facility] Urea nitrogen [Mass/ volume] in Serum or Plasma [facility] Urea nitrogen [Mass/ volume] in Serum or Plasma [facility] Urea nitrogen [Mass/ volume] in Serum or Plasma [facility] Urea nitrogen [Mass/ volume] in Serum or Plasma [facility] Urea nitrogen [Mass/ volume] in Serum or Plasma [facility] Urinalysis, blood, qualitative [facility] Work Phone: Urinalysis, blood, qualitative [facility] Urinalysis, blood, qualitative [facility] Urine culture [facility] Urine dipstick for glucose [facility] Urine dipstick for glucose [facility] Urine dipstick for l eukocyte esterase [facility] Urine dipstick for l eukocyte esterase [facility] Urine dipstick for nitrite [facility] Urine dipstick for nitrite [facility] Urine dipstick for protein [facility] Urine dipstick for protein [facility] Urine examination [facility] Urine examination [facility] Urine microscopy: ep ithelial cells [facility] Work Phone: Urine microscopy: ep ithelial cells [facility] Urine microscopy: ep ithelial cells [facility] Urine Microscopy: white cells [facility] Urine Microscopy: white cells [facility] Urobilinogen [Presen ce] in Urine [facility] Urobilinogen [Presen ce] in Urine [facility] Vancomycin [Mass/vol ume] in Serum or Plasma --trough [facility] Work Phone: White blood cell count [facility] Work Phone: [facility] Immunizations Immunization Date Immunization Notes Care Provider Gabi aydinshu 06-30-2021 Yuri (L[place]za) [place] [facility] Work Phone: [facility] 04-13-2013 influenza virus vacc ine, unspecified formulation Alyssa Jaime [employer] Work Phone: [facility] 03-06-2013 pneumococcal polysaccharide vaccine, 23 valent Alyssa Jaime [employer] Work Phone: [facility] Work Phone: Payers Date Payer Category Payer Self-pay [id number] 2021 Medicaid [id number] 2021 Medicaid [employer] [employer] [place] [id number] 2021-[facility] [phone] [address] [address] [place] [address] Medicaid [id number] 2021 Medicaid [id number] 1990 Unknown [id number]1 1990 Unknown [id number] 2.16.840.1.560005.3.579.2.651 1990 Unknown [id number] 2.16.840.1.672233.3.579.2.627 1990 Unknown [id number] 2.16.840.1.073369.3.579.2.627 Unknown [id number] [id number] Unknown [id number] 2.16.840.1.439430.3.579.2.462 Unknown [id number] 2.16.840.1.542847.3.579.2.462 Unknown [id number] 2.16.840.1.191379.3.579.2.462 Unknown [id number] 2.16.840.1.801128.3.579.2.462 Unknown [id number] 2.16.840.1.238074.3.579.2.462 Unknown [id number] 2.16.840.1.646450.3.579.2.462 Unknown [id number] 2.16.840.1.447729.3.579.2.462 Unknown [id number] 2.16.840.1.789946.3.579.2.462 Unknown [id number] 2.16.840.1.425354.3.579.2.462 Unknown [id number] 2.16.840.1.715301.3.579.2.462 Unknown [id number] 2.16.840.1.624139.3.579.2.462 Unknown [id number] 2.16.840.1.766659.3.579.2.462 Unknown [id number] 2.16.840.1.698855.3.579.2.462 Unknown [id number] 2.16.840.1.216205.3.579.2.462 Unknown [id number] 2.16.840.1.302803.3.579.2.462 Unknown [id number] 2.16.840.1.481772.3.579.2.462 Unknown [id number] 2.16.840.1.075139.3.579.2.462 Social History Date Type Detail Facility [facility] Work Phone: Start: 10-24-2021 End: 06-27-2023 Tobacco smoking status WVIS Unknown if ever smoked [facility] Start: 1990 Sex Assigned At Female [facility] Start: 03-03-2013 End: 11-25-2024 Tobacco smoking status NHIS Smokes tobacco daily [facility] Work Phone: History of tobacco use Cigarette Smoker C [facility] Start: 05-15-2021 End: 02-02-2022 Alcohol intake Current drinker of alcohol (finding) [facility] Start: 05-03-2013 History SDOH Alcohol Comment Seldom [facility] Start: 1990 Sex Assigned At Not on file C [facility] Start: 04-15-2021 End: 01-24-2023 Exposure to SARS-CoV-2 (event) Not sure [facility] Work Phone: Start: 03-03-2013 End: 02-10-2023 Cigarettes smoked current (pack per day) - Reported 0.5 [facility] Start: 03-03-2013 End: 06-26-2024 Tobacco use and exposure Smokeless tobacco non-user [facility] Start: 01-10-2023 Tobacco smoking status Smoker (findi ng) [facility] Start: 01-24-2023 End: 02-10-2023 Alcohol Use Disorder Identification Test - Consumption [AUDIT-C] [facility] How often to you hav e a drink containing alcohol? Monthly or less [facility] How many standard dr inks containing alcohol do you have on a typical day? 1 or 2 [facility] How often do you hav e 6 or more drinks on 1 occasion? Less than monthly [facility] Start: 01-24-2023 Alcohol Comment occ. [facility] National Score (1-10 0), lower number is lower risk 92 [facility] Work Phone: Start: 02-19-2023 End: 07-03-2024 Alcohol intake Ex-drinker (finding) [facility] Start: 02-18-2023 Alcohol Comment rare [facility] (I/We) worried tunde er (my/our) food would run out before (I/we) got money to buy more. Never true [facility] Work Phone: In the past 12 month s, was there a time when you were not able to pay the mortgage or rent on time? No [facility] Work Phone: Start: 10-19-2024 End: 11-01-2024 Sex Female (finding) [facility] Start: 12-30-2024 End: 12-30-2024 Tobacco smoking status NHIS Ex-smoker (finding) [facility] NEGATED: Highlighted row [facility] NEGATED: Highlighted row Not [facility] Medical Equipment Procedure Code Equipment Code Equipment [...] Standard FDA Start: 12-24-2023 Repair, tendon, Achilles [id number] FDA Start: 12-24-2023 Repair, tendon, Achilles BIOSKIN, 2 X 4 FDA Start: 12-24-2023 Repair, tendon, Achilles FIBERTAPE FDA Start: 12-24-2023 Repair, tendon, Achilles SUTURETAPE,FIBER LOOP FDA Start: 12-24-2023 Repair, tendon, Achilles Doyle Citrefix Xpress System FDA Start: 12-24-2023 Repair, tendon, Achilles Doyle Citrefix Xpress System FDA Start: 12-24-2023 Repair, tendon, Achilles VIAFLOW, 1CC FDA Start: 12-24-2023 Repair, tendon, Achilles Guevara Graft Jacket Now Standard FDA Start: 12-24-2023 Repair, tendon, Achilles BIOSKIN, 2 X 4 FDA Start: 12-24-2023 Repair, tendon, Achilles FIBERTAPE FDA Start: 12-24-2023 Repair, tendon, Achilles SUTURETAPE,FIBER LOOP FDA Start: 12-24-2023 Repair, tendon, Achilles Aria Citrefix Xpress System FDA Start: 12-24-2023 Repair, tendon, Achilles Doyle Cit[employer]ix Xpress System FDA Start: 12-24-2023 Repair, [...] LOOP FDA Start: 12-24-2023 Repair, tendon, Achilles Doyle [employer] Xpress System FDA Start: 12-24-2023 Repair, [...] System FDA Start: 12-24-2023 Repair, tendon, Achilles Doyle Cit[employer]ix Xpress System FDA Start: 12-24-2023 Repair, [...] LOOP FDA Start: 12-24-2023 Repair, tendon, Achilles Doyle [employer]ix Xpress System FDA Start: 12-24-2023 Repair, tendon, Achilles Aria Cit[employer]ix Xpress System FDA Start: 12-24-2023 Repair, tendon, Achilles VIAFLOW, 1CC FDA Start: 12-24-2023 Repair, tendon, Achilles Guevara Graft Jacket Now Standard FDA Start: 12-24-2023 Incision and drainage, abscess DRESSING,SURGICEL 4x8 FDA Start: 07-23-2023 Incision and drainage, abscess Bone grafting cannula [id number] FDA Start: 07-23-2023 Incision and drainage, abscess [...] drainage, abscess DRESSING,SURGICEL 4x8 FDA Start: 07-23-2023 [id number] Start: 11-27-2013 End: 02-18-2023 Comment on above: Test blood sugar(s) 1 times daily. Dx: 250.02. Insulin: No Test blood sugar(s) 1 daily. Dx: 250.02. 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 02-11-2023 Functional Status Patient refused [facility] 02-10-2023 Functional Status Michael Mckeon [facility] 01-15-2023 Functional status Up ad nella [facility] Work Phone: 01-10-2023 Functional Status Independent Michael Mike [facility] 01-10-2023 Functional Status Standard Safet y Call device within reach, Bed in low position, Wheels locked, Safety level maintained [facility] 08-15-2022 Functional status Ambulates [facility] Work Phone: 06-29-2022 Functional status Ambulates;Up a d nella;Bedside Commode [facility] Work Phone: 06-25-2022 Functional status Ambulates;Up a d nella;Bathroom Privilege [facility] Work Phone: 04-09-2022 Functional status Bedside [facility] Work Phone: Mental Status Date Assessment Result Facility 12-31-2024 Cognitive function Voice/Name [facility] Work Phone: 11-28-2024 Cognitive function Voice/Name [facility] Work Phone: 07-23-2023 Cognitive function Voice/Name [facility] Work Phone: 05-08-2023 Cognitive function Voice/Name [facility] Work Phone: 02-11-2023 Mental Status Oriented x 4 [facility] 02-11-2023 Mental Status [facility] 02-10-2023 Mental Status [facility] 01-14-2023 Cognitive function Appropriate;Cooperativ [facility] Work Phone: 01-10-2023 Mental Status Orientation Oriented x 4 [facility] 08-15-2022 Cognitive function Voice/Name [facility] Work Phone: 08-12-2022 Cognitive function Level Of Cons ciousness Awake;Alert;Appropriate [facility] Work Phone: 06-29-2022 Cognitive function Voice/Name [facility] Work Phone: 06-25-2022 Cognitive function Voice/Name [facility] Work Phone: 04-09-2022 Cognitive function Voice/Name [facility] Work Phone: Clinical Notes 04-28-2013 to 12-31-2024 Note Date & Type Note Facility 12-31-2024 Discharge summary Note Date/Time December 30, 2024 10:32pm [facility] Medical Records Department [address] [place] [address] Emergency Department Summary 12/30/24 MR#: [id number] Acct: [id number] Name: GHISLAINE GIVENS Rep #:[id number] : 1990 34 From: Poli Farah PCP: BROOKLYN Warren, JOB LITHOGRAPHER-C Statu s:ADM IN Location: ICU CVICU20 3-1 [...] clinician: Hospitalist This note was generated with Elias Borges Urzeda dictation software. It may contain incorrectwords, spelling, [...] (Auto) 70.7 H Lymph % (Auto) 23.6 Conway % (Auto) 4.8 Eos % (Auto) 0.0 [...] Sl. Cloudy Urine pH 5.0 Ur Specific [place]e 1.025 Urine Protein 30 H Urine Glucose [...] (excluding procedures): 30-74 minutes, Discussing w/Patient &/or Family/Dry Press Operator Helper, Arranging Admission or Transfer, Performing Direct Patient Care at Bedside and - (35 minutes) Discharge Plan Dx/Rx/DC Orders Clinical Impression: Diabetic ketoacidosis, Cyclic vomiting syndrome, History of diabetes mellitus, NAI (acute kidney injury) Disposition Disposition: Acute Care Hospital [facility] Discharge Date/Time: 12/30/24 13:08 What to do if you have Problems For any increased pain, shortness of breath, bleeding, nausea or vomiting, chestpain, or any unexpected problems, contact your Primary Care Provider. Call [facility] ([phone]) or report to the closest Emergency Room. Call 911 if necessary. 12/30/242231 <Electronically signed by Poli Farah> Cosigner Signature (if applicable): CC: BROOKLYN JOB LITHOGRAPHER-C Amy Solorzano ~ Signed [facility] Work Phone: 1(713) 928-728806-21-2025 Discharge summary [facility] Medical Records Department [address] [place] [address] Emergency Department Summary 12/30/24 MR#: [id number] Acct: [id number] Name: GHISLAINE GIVENS Rep #:[id number] : 1990 34 From: Poli Farah PCP: BROOKLYN Warren, JOB LITHOGRAPHER-C Statu s:ADM IN Location: ICU CVICU20 3-1 [...] clinician: Hospitalist This note was generated with Elias Borges Urzeda dictation software. It may contain incorrectwords, spelling, [...] (Auto) 70.7 H Lymph % (Auto) 23.6 Conway % (Auto) 4.8 Eos % (Auto) 0.0 [...] Sl. Cloudy Urine pH 5.0 Ur Specific [place] 1.025 Urine Protein 30 H Urine Glucose [...] kidney injury) Disposition Disposition: Acute Care Hospital [facility] Discharge Date/Time: 12/30/24 13:08 What to do if you have Problems For any increased pain, shortness of breath, bleeding, nausea or vomiting, chestpain, or any unexpected problems, contact your Primary Care Provider. Call [facility] ([phone]) or report tothe closest Emergency Room. Call 911 if necessary. 12/30/242231 Cosigner Signature (if applicable): CC: RBOOKLYN Solorzano ~ Signed [facility]06-21-2025 History and physical note Author David Bain [facility] Note Date/Time December 30, 2024 1:09 pm [facility] Medical Records Department [address] [place] [address] H&P Exam - Hospitalist 12/30/24 1248 MR#: [id number] Acct: [id number] Name: GHISLAINE GIVENS Rep #:[id number] : 1990 34 From: David Gupta PCP: BROOKLYN Warren, JOB LITHOGRAPHER-C Statu s:ADM IN Location: ICU CVICU20 3-1 [...] DKA therefore admitted. Vitals in normal limit. [facility] Medical History Diabetes GERD (gastroesophageal reflux disease) [...] (Auto) 70.7 H, Lymph % (Auto) 23.6, Conway % (Auto) 4.8, Eos % (Auto) 0.0, [...] Sl. Cloudy, Urine pH 5.0, Ur Specific [place]e 1.025, Urine Protein 30 H, Urine Glucose [...] for 2 weeks. Weight loss counseling done. Telecommunications Support consult DVT prophylaxis, low risk: Early ambulation encouraged Living will/advanced directive/end of life care: Patient does not have living will or advanced directive. She does not have the year power of deputy commonwealth's attorney for health. After discussion of benefits/risks procedures involved with full code,DNR CC arrest and DNR CC, the patient opted for full code. Patient does want artificial life support including intubation, tube feed, ventilator and/chest compression, central venous catheter, vasopressor and DC shock if needed Total time spent in [id number] encounter in discussion of advanced directive 17 minutes. Charges/Coding Visit Charges Inpatient E&M: 81010 Init Hosp L3 Procedures Hospitalists Procedures: 29010 Advncd Care Plan 30 Min 12/30/24 1309 <Electronically signed by David Bain MD> Cosigner Signature (if applicable): CC: BROOKLYN JOB LITHOGRAPHER-C Amy Solorzano; Dr. David Bain MD~ Signed [facility] Work Phone: 1(135) 158-310006-21-2025 History and physical note [facility] Medical Records Department [address] [place] [address] H&P Exam - Hospitalist 12/30/24 1248 MR#: [id number] Acct: [id number] Name: GHISLAINE GIVENS Rep #:[id number] : 1990 34 From: David Gupta PCP: BROOKLYN Warren, JOB LITHOGRAPHER-C Statu s:ADM IN Location: ICU CVICU20 3-1 [...] DKA therefore admitted. Vitals in normal limit. [facility] Medical History Diabetes GERD (gastroesophageal reflux disease) [...] (Auto) 70.7 H, Lymph % (Auto) 23.6, Conway % (Auto) 4.8, Eos % (Auto) 0.0, [...] Sl. Cloudy, Urine pH 5.0, Ur Specific Buckeye 1.025, Urine Protein 30 H, Urine Glucose [...] for 2 weeks. Weight loss counseling done. Telecommunications Support consult DVT prophylaxis, low risk: Early ambulation encouraged Living will/advanced directive/end of life care: Patient does not have living will or advanced directive. She does not have the [facility] power of deputy commonwealth's attorney for health. After discussion of benefits/risks procedures involved with full code,DNR CC arrest and DNR CC, the patient opted for full code. Patient does want artificial life support including intubation, tube feed, ventilator and/chest compression, central venous catheter, vasopressor and DC shock if needed Total time spent in [id number] encounter in discussion of advanced directive 17 minutes. Charges/Coding Visit Charges Inpatient E&M: 07057 Init Hosp L3 Procedures Hospitalists Procedures: 74794 Advncd Care Plan 30 Min 12/30/24 1309 Cosigner Signature (if applicable): CC: C JOB LITHOGRAPHER-C Amy Solorzano; Dr. David Bain MD~ Signed [facility]06-16-2025 Radiology Diagnostic study note [facility] Imaging Services [address] [place], [place] [address] Abdomen Limited MR#: [id number] Acct: [id number] Name: GHISLAINE GIVENS Rep #: [id number] : 1990 F 34 From: Yamila Mcginnis MD PCP: BROOKLYN Warren, JOB LITHOGRAPHER-C Status: REG CLI Study:Abdomen Limited Date of Exam: 12/10 01/03 Exam# [id number] Ordering Dr: Nayana Peter PROCEDURE: ABDOMEN LIMITED [...] of cholelithiasis or acute cholecystitis. Reading [facility] CC: Sara Solorzano; MIGUEL A South ~ Neurology Stroke Physician: Signed [facility]05-20-2025 Discharge summary [facility] Medical Records Department [address] [place] [address] Discharge Summary 11/28/24 1203 MR#: [id number] Acct: [id number] Name: GHISLAINE GIVENS Rep #:[id number] : 1990 34 From: Gale Lr DO PCP: BROOKLYN Warren NP-C Statu s:ADM IN Location: [facility] FX428-1 Providers Date of Admission: 11/25/24 Date of [...] who presented to the emergency department at [facility] on 11/25/2024 with a chief complaint of [...] fatty infiltration. The patient was admitted to [facility] with stercoral proctocolitis and overflow diarrheain the [...] (Auto) 49.8, Lymph % (Auto) 43.0 H, Conway % (Auto) 5.3, Eos % (Auto) 0.5, [...] as compared to prior study. Reading Location: [facility] D/C Instructions Discharge Diet: 1800 Calorie [...] tomorrow to set up appointment) Amy Solorzano, JOB LITHOGRAPHER-C [Primary Care Provider] - In 1 Week Disposition Disposition (needs filled in before D/C Order can be placed): Home, Self Care Charges/Coding Visit Charges Inpatient E&M: 42661 Disch Hosp >30min 11/28/24 1231 Cosigner Signature (if applicable): CC: BROOKLYN JOB LITHOGRAPHER-C Amy Solorzano; Dr. Gale Lr, DO~ Signed [facility]05-20-2025 [facility] Medical Records Department [address] [place] [address] Discharge Summary 11/28/24 1203 MR#: [id number] Acct: [id number] Name: GHISLAINE GIVENS Rep #: [id number] : 1990 34 From: Gale Lr DO PCP: BROOKLYN Warren, PATRICE Status:ADM IN Location: [facility] QE291-0 Providers Date of Admission: 11/25/24 Date of [...] who presented to the emergency department at [facility] on 11/25/2024 with a chief complaint of [...] of care with a (more content not included)...[facility]05-20-2025 Progress note Author Clare Loo [facility] Note Date/Time November 28, 2024 8:41a m [facility] Medical Records Department [address] [place] [address] Progress Note - Surgery 11/28/24 0757 MR#: [id number] Acct: [id number] Name: GHISLAINE GIVENS Rep #:[id number] : 1990 34 From: Clare GRADY PA-C PCP: BROOKLYN Warren, JOB LITHOGRAPHER-C Statu s:ADM IN Location: [place] [address] Subjective Subjective Patient was walking the hallway [...] (Auto) 49.8, Lymph % (Auto) 43.0 H, Conway % (Auto) 5.3, Eos % (Auto) 0.5, [...] as compared to prior study. Reading Location: [place] [address] Physical Exam GI GI Narrative: Abdomen- soft, [...] 1 week Charges/Coding Visit Charges Inpatient E&M: 78102 Subs Hosp L2 11/28/24 0841 <Electronically signed by Clare GRADY PA-C> Cosigner Signature (if applicable): CC: ~ Signed [facility] Work Phone: 1(473) 954-528605-20-2025 Progress note [facility] Medical Records Department [address] [place] [address] Progress Note - Surgery 11/28/24 0757 MR#: [id number] Acct: [id number] Name: GHISLAINE GIVENS Rep #:[id number] : 1990 34 From: Clare GRADY PA-C PCP: BROOKLYN Warren, JOB LITHOGRAPHER-C Statu s:ADM IN Location: [facility] FP875-3 Subjective Subjective Patient was walking the hallway [...] (Auto) 49.8, Lymph % (Auto) 43.0 H, Conway % (Auto) 5.3, Eos % (Auto) 0.5, [...] as compared to prior study. Reading Location: [facility] Physical Exam GI GI Narrative: Abdomen- [...] 1 week Charges/Coding Visit Charges Inpatient E&M: 96758 Subs Hosp L2 11/28/24 0841 Cosigner Signature (if applicable): CC: ~ Signed [facility]05-19-2025 Progress note Author Gale Lr [facility] Note Date/Time November 27, 2024 3:45p m [facility] Medical Records Department [address] [place] [address] Progress Note - Hospitalist 11/27/24 0759 MR#: [id number] Acct: [id number] Name: GHISLAINE GIVENS Rep #:[id number] : 1990 34 From: Gale Lr DO PCP: BROOKLYN Warren, JOB LITHOGRAPHER-C Statu s:ADM IN Location: [place] CJ129-1 Reason for Visit Reason for Visit: Abdominal [...] (Auto) 75.9 H, Lymph % (Auto) 18.1L, Conway % (Auto) 5.2, Eos % (Auto) 0.0, [...] fecal impaction of the rectum. Reading Location: [facility] Physical Exam Const alert, oriented [...] cessation discussed with patient Acute proctitis/colitis - [place] to be stercoral colitis from severe constipation [...] Full code Charges/Coding Visit Charges Inpatient E&M: 65523 Subs Hosp L2 11/27/24 2798 <Electronically signed by Gale Lr DO> Cosigner Signature (if applicable): CC: ~ Signed [facility] Work Phone: 1(727) 363-977005-19-2025 Progress note Author Clare Loo [facility] Note Date/Time November 27, 2024 2:35p m [facility] Medical Records Department [address] [place] [address] Progress Note - Surgery 11/27/24 0845 MR#: [id number] Acct: [id number] Name: GHISLAINE GIVENS Rep #:[id number] : 1990 34 From: Clare GRADY PA-C PCP: BROOKLYN Warren, JOB LITHOGRAPHER-C Statu s:ADM IN Location: [place] PZ232-6 Subjective Subjective Patient evaluated rolling restlessly in [...] (Auto) 75.9 H, Lymph % (Auto) 18.1L, Conway % (Auto) 5.2, Eos % (Auto) 0.0, [...] this patient Charges/Coding Visit Charges Inpatient E&M: 12703 Subs Hosp L2 11/27/24 0853 <Electronically signed [...] Cosigner Signature (if applicable): cc: ~* Signed [facility] Work Phone: 1(596) 889-366505-19-2025 Progress note [facility] Medical Records Department [address] [place] [address] Progress Note - Hospitalist 11/27/24 4354 MR#: [id number] Acct: [id number] Name: GHISLAINE GIVENS Rep #:[id number] : 1990 34 From: Gale Lr DO PCP: Amy Solorzano Sara, JOB LITHOGRAPHER-C Statu s:ADM IN Location: [place] WR194-9 Reason for Visit Reason for Visit: Abdominal [...] (Auto) 75.9 H, Lymph % (Auto) 18.1L, Conway % (Auto) 5.2, Eos % (Auto) 0.0, [...] fecal impaction of the rectum. Reading Location: [facility] Physical Exam Const alert, oriented x3 and [...] cessation discussed with patient Acute proctitis/colitis - [place] to be stercoral colitis from severe constipation [...] Full code Charges/Coding Visit Charges Inpatient E&M: 99111 Subs Hosp L2 11/27/24 8743 Cosigner Signature (if applicable): CC: ~ Signed [facility]05-19-2025 Progress note [facility] Medical Records Department [address] [place] [address] Progress Note - Surgery 11/27/24 0845 MR#: [id number] Acct: [id number] Name: GHISLAINE GIVENS Rep #:[id number] : 1990 34 From: Clare GRADY PA-C PCP: BROOKLYN Warren, JOB LITHOGRAPHER-C Statu s:ADM IN Location: [place] KI584-5 Subjective Subjective Patient evaluated rolling restlessly in [...] (Auto) 75.9 H, Lymph % (Auto) 18.1L, Conway % (Auto) 5.2, Eos % (Auto) 0.0, [...] this patient Charges/Coding Visit Charges Inpatient E&M: 87675 Subs Hosp L2 11/27/24 3031 Cosigner Signature (if applicable): CC: ~ Signed [...] Cosigner Signature (if applicable): cc: ~* Signed [facility]05-19-2025 Radiology Diagnostic study note [facility] Imaging Services [address] [place], [place] [address] Abdomen/Pelvis WITH Contrast MR#: [id number] Acct: [id number] Name: GHISLAINE GIVENS Rep #: [id number] : 1990 F 34 From: Fortino Sadler MD PCP: Amy Solorzano Sara, JOB LITHOGRAPHER-C Status: ADM IN Study:Abdomen/Pelvis WITH Contrast Date of Ex am: 11/27/24 Exam# [id number] Ordering Dr: Clare Loo PA-C PROCEDURE: ABDOMEN/PELVIS [...] as compared to prior study. Reading Location: [facility] CC: ESCOBAR Loo; BROOKLYN Solorzano ~ Neurology Stroke Physician: Signed [facility]05-18-2025 Progress note Author [facility] Note Date/Time November 26, 2024 9:20a m [facility] Medical Records Department [address] [place] [address] Progress Note 11/26/24 0909 MR#: [id number] Acct: [id number] Name: GHISLAINE GIVENS Rep #:[id number] : 1990 34 From: Brenda Rao MD PCP: BROOKLYN Warren, PATRICE Statu s:ADM IN Location: [place] [address]-1 Subjective Subjective Patient seen and examined. She [...] 79.5 H, Lymph % (Auto) 11.4 L, Conway % (Auto) 8.0, Eos % (Auto) 0.1, [...] Clarity Cloudy, Urine pH 6.0, Ur Specific Buckeye 1.025, Urine Protein 30 H, Urine Glucose [...] (Auto) 73.4 H, Lymph % (Auto) 19.4, Conway % (Auto) 6.2, Eos % (Auto) 0.2, [...] the colon consistent with constipation. Reading Location: [facility] Abdomen/Pelvis CT 11/25/24 11:32 IMPRESSION: 1. Fecal impaction with apparent wall thickening of the distal colon and rectumsuggesting proctitis and colitis. Clinical correlation is recommended. 2. Hepatomegaly with fatty infiltration. Reading Location: [facility] KUB X-Ray 11/26/24 08:10 IMPRESSION: Constipation with suggestion of fecal impaction of the rectum. Reading Location: [facility] Physical Exam Const alert and [...] Full code Charges/Coding Visit Charges Inpatient E&M: 14735 Subs Hosp L2 11/26/24 0920 <Electronically signed by Brenda Rao MD> Brenda Rao MD Cosigner Signature (if applicable): CC: ~ Signed [facility] Work Phone: 1(526) 825-764805-18-2025 History and physical note Author Brenda [facility] Note Date/Time November 26, 2024 7:54a m [facility] Medical Records Department [address] [place] [address] H&P Exam - Hospitalist 11/25/24 1324 MR#: [id number] Acct: [id number] Name: GHISLAINE GIVENSREBA Rep #:[id number] : 1990 34 From: Brenda aRo MD PCP: Amy Solorzano, [facility], JOB LITHOGRAPHER-C Statu s:ADM IN Location: [place] BB534-5 HPI - General General Date of Admission: [...] of severe constipation with likely overflow diarrhea. [facility] Medical History (Updated 11/25/24 @ 15:05 [...] 79.5 H, Lymph % (Auto) 11.4 L, Conway % (Auto) 8.0, Eos % (Auto) 0.1, [...] Clarity Cloudy, Urine pH 6.0, Ur Specific Buckeye 1.025, Urine Protein 30 H, Urine Glucose [...] the colon consistent with constipation. Reading Location: [facility] Abdomen/Pelvis CT 11/25/24 11:32 IMPRESSION: 1. Fecal impaction with apparent wall thickening of the distal colon and rectumsuggesting proctitis and colitis. Clinical correlation is recommended. 2. Hepatomegaly with fatty infiltration. Reading Location: [facility] Assessment & Plan Assessment/Plan (1) Colitis: (2) Acute proctitis: (3) Fecal impaction: PLAN: Plan # Stercoral proctocolitis with overflow diarrhea in the setting of severe constipation with fecal impaction * Admit to [facility]. Admitted with a complaint of abdominal [...] Full code Charges/Coding Visit Charges Inpatient E&M: 95558 Init Hosp L2 11/26/24 0750 <Electronically signed by Brenda Rao MD> Cosigner Signature (if applicable): CC: BROOKLYN JOB LITHOGRAPHER-C Amy Solorzano; Dr. Brenda Rao MD~ Signed [facility] Work Phone: 1(756) 382-915405-18-2025 Consult note Author Annalise [facility] Note Date/Time November 26, 2024 7:47a m [facility] Medical Records Department [address] [place] [address] Consultation - Surgical 11/25/242050 MR#: [id number] Acct: [id number] Name: GHISLAINE GIVENS Rep #:[id number] : 1990 34 From: Annalise Welch MD PCP: BROOKLYN Warren, JOB LITHOGRAPHER-C Statu s:ADM IN Location: [place] [address] Assessment & Plan Assessment/Plan (1) Fecal impaction: (2) Acute proctitis: PLAN: Plan Discussed with patient would recommend additional enema to help soften the bowelof stool in the rectum. Along with additional ones after that. Continue IV Zosyn Discussed with patient plan to DC with laxatives. Annalise Welch M.D. Pager: [phone] [facility] [address] [place] [address], [address] [place] [address] Office: [phone] HPI Consult Data Date of Consult: 11/26/24 [...] and did have some results with it. [facility] Medical History (Updated 11/25/24 @ 15:05 [...] 79.5 H, Lymph % (Auto) 11.4 L, Conway % (Auto) 8.0, Eos % (Auto) 0.1, [...] Clarity Cloudy, Urine pH 6.0, Ur Specific Buckeye 1.025, Urine Protein 30 H, Urine Glucose [...] the colon consistent with constipation. Reading Location: [facility] Abdomen/Pelvis CT 11/25/24 11:32 IMPRESSION: 1. Fecal impaction with apparent wall thickening of the distal colon and rectumsuggesting proctitis and colitis. Clinical correlation is recommended. 2. Hepatomegaly with fatty infiltration. Reading Location: [facility] Charges/Coding Visit Charges Inpatient E&M: 35942 Init Hosp L3 11/26/24 0747 <Electronically signed by Annalise Welch MD> Cosigner Signature (if applicable): CC: BROOKLYN JOB LITHOGRAPHER-C Amy Solorzano~ Signed [facility] Work Phone: 1(684) 393-354005-18-2025 Progress note Author Annalise [facility] Note Date/Time November 26, 2024 7:47a m [facility] Medical Records Department [address] [place] [address] Progress Note - Surgery 11/26/24 0741 MR#: [id number] Acct: [id number] Name: GHISLAINE GIVENS Rep #:[id number] : 1990 34 From: Annalise Welch MD PCP: BROOKLYN Warren, JOB LITHOGRAPHER-C Statu s:ADM IN Location: [place] GZ909-3 Subjective Subjective Patient states she did have [...] 79.5 H, Lymph % (Auto) 11.4 L, [place] % (Auto) 8.0, Eos % (Auto) 0.1, [...] Clarity Cloudy, Urine pH 6.0, Ur Specific Buckeye 1.025, Urine Protein 30 H, Urine Glucose [...] (Auto) 73.4 H, Lymph % (Auto) 19.4, [place] % (Auto) 6.2, Eos % (Auto) 0.2, [...] the colon consistent with constipation. Reading Location: [facility] Abdomen/Pelvis CT 11/25/24 11:32 IMPRESSION: 1. Fecal impaction with apparent wall thickening of the distal colon and rectumsuggesting proctitis and colitis. Clinical correlation is recommended. 2. Hepatomegaly with fatty infiltration. Reading Location: [facility] Physical Exam Const oriented x3 [...] improved from 27-17. Annalise Welch M.D. Pager: [phone] [facility] [address] [place] [address], [facility], [address] [place] [address] Office: [phone] Charges/Coding Multi Select Codes Visit Charges Visit Charges: 13045 Subs Hosp L2 11/26/24 0747 <Electronically signed by Annalise Welch MD> Cosigner Signature (if applicable): CC: ~ Signed [facility] Work Phone: 1(940) 917-226605-18-2025 Progress note [facility] Medical Records Department [address] [place] [address] Progress Note 11/26/24 0909 MR#: [id number] Acct: [id number] Name: GHISLAINE GIVENS Rep #:[id number] : 1990 34 From: Brenda Rao MD PCP: BROOKLYN Warren, JOB LITHOGRAPHER-C Statu s:ADM IN Location: [place] PN840-3 Subjective Subjective Patient seen and examined. She [...] 79.5 H, Lymph % (Auto) 11.4 L, Conway % (Auto) 8.0, Eos % (Auto) 0.1, [...] Clarity Cloudy, Urine pH 6.0, Ur Specific Buckeye 1.025, Urine Protein 30 H, Urine Glucose [...] (Auto) 73.4 H, Lymph % (Auto) 19.4, Conway % (Auto) 6.2, Eos % (Auto) 0.2, [...] the colon consistent with constipation. Reading Location: [facility] Abdomen/Pelvis CT 11/25/24 11:32 IMPRESSION: 1. Fecal impaction with apparent wall thickening of the distal colon and rectumsuggesting proctitisand colitis. Clinical correlation is recommended. 2. Hepatomegaly with fatty infiltration. Reading Location: [facility] KUB X-Ray 11/26/24 08:10 IMPRESSION: Constipation with suggestion of fecal impaction of the rectum. Reading Location: [facility] Physical Exam Const alert and [...] Full code Charges/Coding Visit Charges Inpatient E&M: 18727 Subs Hosp L2 11/26/24 0920 Brenda Rao MD Cosigner Signature (if applicable): CC: ~ Signed [facility]05-18-2025 Radiology Diagnostic study note [facility] Imaging Services [address] [place] [address] Abdomen Single View MR#: [id number] Acct: [id number] Name: GHISLAINE GIVENS Rep #: [id number] : 1990 F 34 From: Alicja Barfield MD PCP: BROOKLYN Warren, JOB LITHOGRAPHER-C Status: ADM IN Study:Abdomen Single View Date of Exam: 11/26/24 Exam# [id number] Ordering Dr: Annalise Welch MD EXAM: XR Abdomen, 1 View CLINICAL INDICATION: FECAL IMPACTION-RECTUM TECHNIQUE: Frontal supine view of the abdomen/pelvis. COMPARISON: No relevant prior studies available. FINDINGS: GASTROINTESTINAL TRACT: Constipation with suggestion of fecal impaction of the rectum. No dilation. BONES/JOINTS: Unremarkable. No acute fracture. RAD/Abdomen Single View IMPRESSION: Constipation with suggestion of fecal impaction of the rectum. Reading Location: [facility] CC: [facility] JOB LITHOGRAPHER-C Amy Solorzano; Dr. Annalise Welch MD ~ Neurology Stroke Physician: Signed [facility]05-18-2025 History and physical note [facility] Medical Records Department [address] [place] [address] H&P Exam - Hospitalist 11/25/24 1324 MR#: [id number] Acct: [id number] Name: GHISLAINE GIVENS Rep #:[id number] : 1990 34 From: Brenda Rao MD PCP: BROOKLYN Warren, JOB LITHOGRAPHER-C Statu s:ADM IN Location: [place] PC742-6 HPI - General General Date of Admission: [...] of severe constipation with likely overflow diarrhea. [facility] Medical History (Updated 11/25/24 @ 15:05 [...] 79.5 H, Lymph % (Auto) 11.4 L, Conway % (Auto) 8.0, Eos % (Auto) 0.1, [...] Clarity Cloudy, Urine pH 6.0, Ur Specific Buckeye 1.025, Urine Protein 30 H, Urine Glucose [...] the colon consistent with constipation. Reading Location: [facility] Abdomen/Pelvis CT 11/25/24 11:32 IMPRESSION: 1. Fecal impaction with apparent wall thickening of the distal colon and rectumsuggesting proctitisand colitis. Clinical correlation is recommended. 2. Hepatomegaly with fatty infiltration. Reading Location: [facility] Assessment & Plan Assessment/Plan (1) Colitis: (2) Acute proctitis: (3) Fecal impaction: PLAN: Plan # Stercoral proctocolitis with overflow diarrhea in the setting of severe constipation with fecal impaction * Admit to [facility]. Admitted with a complaint of abdominal [...] Full code Charges/Coding Visit Charges Inpatient E&M: 27086 Init Hosp L2 11/26/24 0754 Cosigner Signature (if applicable): CC: C JOB LITHOGRAPHER-C Amy Solorzano; Dr. Brenda Rao MD~ Signed [facility]05-18-2025 Consult note [facility] Medical Records Department [address] [place] [address] Consultation - Surgical 11/25/242050 MR#: [id number] Acct: [id number] Name: GHISLAINE GIVENS Rep #:[id number] : 1990 34 From: Annalise Welch MD PCP: Amy Solorzano, BROOKLYN, JOB LITHOGRAPHER-C Statu s:ADM IN Location: [facility] TV114-5 Assessment & Plan Assessment/Plan (1) Fecal impaction: (2) Acute proctitis: PLAN: Plan Discussed with patient would recommend additional enema to help soften the bowelof stool in the rectum. Along with additional ones after that. Continue IV Zosyn Discussed with patient plan to DC with laxatives. Annalise Welch M.D. Pager: [phone] [facility] [address] [place] [address], [facility] [address] [place] [id number] Office: [phone] HPI Consult Data Date of Consult: 11/26/24 [...] ER and did havesome results with it. [facility] Medical History (Updated 11/25/24 @ 15:05 [...] 79.5 H, Lymph % (Auto) 11.4 L, [place] % (Auto) 8.0, Eos % (Auto) 0.1, [...] Clarity Cloudy, Urine pH 6.0, Ur Specific Buckeye 1.025, Urine Protein 30 H, Urine Glucose [...] the colon consistent with constipation. Reading Location: [facility] Abdomen/Pelvis CT 11/25/24 11:32 IMPRESSION: 1. Fecal impaction with apparent wall thickening of the distal colon and rectumsuggesting proctitisand colitis. Clinical correlation is recommended. 2. Hepatomegaly with fatty infiltration. Reading Location: [facility] Charges/Coding Visit Charges Inpatient E&M: 18691 Init Hosp L3 11/26/24 0747 Cosigner Signature (if applicable): CC: VSSara JOB LITHOGRAPHERPanC Amy Solorzano~ Signed [facility]05-18-2025 Progress note [facility] Medical Records Department [address] [facility] [place] [address] Progress Note - Surgery 11/26/24 0705 MR#: [id number] Acct: [id number] Name: GHISLAINE GIVENS Rep #:[id number] : 1990 34 From: Annalise Welch MD PCP: Amy Solorzano, Sara, JOB LITHOGRAPHER-C Statu s:ADM IN Location: [place] MD216-9 Subjective Subjective Patient states she did have [...] 79.5 H, Lymph % (Auto) 11.4 L, [place] % (Auto) 8.0, Eos % (Auto) 0.1, [...] Clarity Cloudy, Urine pH 6.0, Ur Specific [place] 1.025, Urine Protein 30 H, Urine Glucose [...] (Auto) 73.4 H, Lymph % (Auto) 19.4, [place] % (Auto) 6.2, Eos % (Auto) 0.2, [...] the colon consistent with constipation. Reading Location: [facility] Abdomen/Pelvis CT 11/25/24 11:32 IMPRESSION: 1. Fecal impaction with apparent wall thickening of the distal colon and rectumsuggesting proctitisand colitis. Clinical correlation is recommended. 2. Hepatomegaly with fatty infiltration. Reading Location: [facility] Physical Exam Const oriented x3 and no [...] improved from 27-17. Annalise Welch M.D. Pager: [phone] [facility] [address] [place] [address], Outpatient [place], [address] [place] [address] Office: [phone] Charges/Coding Multi Select Codes Visit Charges Visit Charges: 89150 Subs Hosp L2 11/26/24 0733 Cosigner Signature (if applicable): CC: ~ Signed [facility]05-17-2025 Discharge summary Author Drew Hinson [facility] Note Date/Time November 25, 2024 1:45p m [facility] Medical Records Department [address] [place] [address] Emergency Department Summary 11/25/24 MR#: [id number] Acct: [id number] Name: GHISLAINE GIVENS Rep #:[id number] : 1990 34 From: Drew Hinson MD PCP: BROOKLYN Warren, JOB LITHOGRAPHER-C Statu s:REG ER Location: ED HPI HPI [...] this diagnosis. No exacerbating or alleviating factors. [facility] Medical History Wears glasses History of MRSA [...] 79.5 H Lymph % (Auto) 11.4 L Conway % (Auto) 8.0 Eos % (Auto) 0.1 [...] Clarity Cloudy Urine pH 6.0 Ur Specific Buckeye 1.025 Urine Protein 30 H Urine Glucose [...] the colon consistent with constipation. Reading Location: [facility] Abdomen/Pelvis CT 11/25/24 11:32 IMPRESSION: 1. Fecal impaction with apparent wall thickening of the distal colon and rectumsuggesting proctitis and colitis. Clinical correlation is recommended. 2. Hepatomegaly with fatty infiltration. Reading Location: [facility] Management Discussion w/another healthcare provider: Hospitalist (Dr. Rao) and Master Cook(Dr. Welch) Discharge Plan Dx/Rx/DC Orders Clinical Impression: Fecal impaction, Acute proctitis, Colitis Disposition Disposition: Acute Care Hospital [facility] What to do if you have Problems For any increased pain, shortness of breath, bleeding, nausea or vomiting, chestpain, or any unexpected problems, contact your Primary Care Provider. Call [facility] ([phone]) or report to the closest Emergency Room. Call 911 if necessary. 11/25/24 1345 <Electronically signed by Drew Hinson MD> Cosigner Signature (if applicable): CC: [facility] JOB LITHOGRAPHER-Sara Solorzano ~ Signed [facility] Work Phone: 1([phone]) 538-324505-17-2025 Evaluation note* Diagnosis Onset Date Resolution Status Admit Date Abdominal pain acute November 25, 2024 1:38pm Acute proctitis acute November 25, 2024 1:38pm Colitis acute November 25, 2024 1:38pm Diabetes acute November 25, 2024 1:38pm Fecal impaction acute November 25, 2024 1:38pm Nausea & vomiting acute November 1:38pm [facility] Work Phone: 1(476) 969-883805-17-2025 Evaluation note* Diagnosis Onset Date Resolution Status [...] December 7:52am Constipation noneactive December 13 7:52am [facility] Work Phone: 1(779) 300-429005-17-2025 Evaluation note* Diagnosis Onset Date Resolution Status [...] 2024 12:28pm Diabetic ketoacidosis acute Dec 12:28pm [facility] Work Phone: [phone]) 757-704305-17-2025 Discharge summary Author Drew Hinson [facility] Note Date/Time November 25, 2024 1:45p m [facility] Medical Records Department [address] [place] [address] Emergency Department Summary 11/25/24 MR#: [id number] Acct: [id number] Name: GHISLAINE GIVENS Rep #:[id number] : 1990 34 From: Drew Hinson MD PCP: BROOKLYN Warren, JOB LITHOGRAPHER-C Statu s:REG ER Location: ED HPI HPI [...] this diagnosis. No exacerbating or alleviating factors. [facility] Medical History Wears glasses History of MRSA [...] 79.5 H Lymph % (Auto) 11.4 L Conway % (Auto) 8.0 Eos % (Auto) 0.1 [...] Clarity Cloudy Urine pH 6.0 Ur Specific Buckeye 1.025 Urine Protein 30 H Urine Glucose [...] the colon consistent with constipation. Reading Location: [facility] Abdomen/Pelvis CT 11/25/24 11:32 IMPRESSION: 1. Fecal impaction with apparent wall thickening of the distal colon and rectumsuggesting proctitis and colitis. Clinical correlation is recommended. 2. Hepatomegaly with fatty infiltration. Reading Location: [facility] Management Discussion w/another healthcare provider: Hospitalist (Dr. Rao) and Master Cook(Dr. Welch) Discharge Plan Dx/Rx/DC Orders Clinical Impression: Fecal impaction, Acute proctitis, Colitis Disposition Disposition: Acute Care Hospital [facility] What to do if you have Problems For any increased pain, shortness of breath, bleeding, nausea or vomiting, chestpain, or any unexpected problems, contact your Primary Care Provider. Call [facility] ([phone]) or report to the closest Emergency Room. Call 911 if necessary. 11/25/24 1345 <Electronically signed by Drew Hinson MD> Cosigner Signature (if applicable): CC: BROOKLYN JOB LITHOGRAPHER-C Amy Solorzano ~ Signed [facility] Work Phone: [phone]) 199-364705-17-2025 Discharge summary [facility] Medical Records Department [address] [place] [address] Emergency Department Summary 11/25/24 MR#: [id number] Acct: [id number] Name: GHISLAINE GIVENS Rep #:[id number] : 1990 34 From: Drew Hinson MD PCP: BROOKLYN Warren, JOB LITHOGRAPHER-C Statu s:REG ER Location: ED HPI HPI [...] confirm this diagnosis. Noexacerbating or alleviating factors. [facility] Medical History Wears glasses History of MRSA [...] 79.5 H Lymph % (Auto) 11.4 L Conway % (Auto) 8.0 Eos % (Auto) 0.1 [...] Clarity Cloudy Urine pH 6.0 Ur Specific Buckeye 1.025 Urine Protein 30 H Urine Glucose [...] the colon consistent with constipation. Reading Location: [facility] Abdomen/Pelvis CT 11/25/24 11:32 IMPRESSION: 1. Fecal impaction with apparent wall thickening of the distal colon and rectumsuggesting proctitisand colitis. Clinical correlation is recommended. 2. Hepatomegaly with fatty infiltration. Reading Location: [facility] Management Discussion w/another healthcare provider: Hospitalist (Dr. Rao) and Master Cook(Dr. Welch) Discharge Plan Dx/Rx/DC Orders Clinical Impression: Fecal impaction, Acute proctitis, Colitis Disposition Disposition: [facility] What to do if you have Problems For any increased pain, shortness of breath, bleeding, nausea or vomiting, chestpain, or any unexpected problems, contact your Primary Care Provider. Call [facility] ([phone]) or report tothe closest Emergency Room. Call 911 if necessary. 11/25/24 1345 Cosigner Signature (if applicable): CC: C JOB LITHOGRAPHER-C Amy Solorzano ~ Signed [facility]05-17-2025 Radiology Diagnostic study note [facility] Imaging Services [address] [place] [address] Abdomen/Pelvis W IV Cont ONLY MR#: [id number] Acct: [id number] Name: GHISLAINE GIVENS Rep #: [id number] : 1990 F 34 From: Alicja Barfield MD PCP: BROOKLYN Warren, JOB LITHOGRAPHER-C Status: REG ER Study:Abdomen/Pelvis W IV Cont ONLY Date of E xam: 11/25/24 Exam# [id number] Ordering Dr: Drew Hinson MD EXAM: CT [...] 2. Hepatomegaly with fatty infiltration. Reading Location: [facility] CC: [facility] JOB LITHOGRAPHER-C Amy Solorzano; Dr. Drew Hinson MD ~ Neurology Stroke Physician: Signed [facility]05-17-2025 Radiology Diagnostic study note [facility] Imaging Services [address] [place], [place] [id number] Acute Abdomen Inc Chest MR#: [id number] Acct: [id number] Name: GHISLAINE GIVENS Rep #: [id number] : 1990 F 34 From: Alicja Barfield MD PCP: BROOKLYN Warren, JOB LITHOGRAPHER-C Status: REG ER Study:Acute Abdomen Inc Chest Date of Exam: 11/25/24 Exam# [id number] Ordering Dr: Drew Hinson MD EXAM: XR [...] the colon consistent with constipation. Reading Location: [facility] CC: [facility] JOB LITHOGRAPHER-C Amy Solorzano; Dr. Drew Hinson MD ~ Neurology Stroke Physician: Signed [facility]12-23-2024 NoteHNO ID: [id number] Author: IRAIS HANNA PA Service: ? Author Type: Physician Lock Stitch Channeler Type: Progress Notes Filed: 07/03/2024 13:13 Note Text: This note was created using Yuenimeiriter. Subjective Ghislaine Givens is a 34 year [...] treatment plan were d (more content not included)...[facility]12-23-2024 History of Present illness Narrative* Irais Hanna PA - 07/03/2024 1:11 PM EST This note was created using clickTRUE. Subjective Ghislaine Givens is a 34 year [...] evaluation. MIGUEL A Goldman documented [facility] History of Present illness Narrative* Luis [...] PATIENT PRESENTS WITH AN IMPLANTABLE OR ATTACHED STORE ADMINISTRATIVE ASSISTANT: No RADIOLOGY DEPARTMENT: General X-ray: Exam(s) Completed: Chest X-Ray PERIPHERAL IV DATA: Not applicable SIGNED BY: RT Los(Reji) July 03, 2024 12:58 PM documented in this encounterOhio[facility]12-23-2024 NoteHNO ID: [id number] Author: LUIS MAYES RT(R) Service: Radiology Author [...] PATIENT PRESENTS WITH AN IMPLANTABLE OR ATTACHED STORE ADMINISTRATIVE ASSISTANT: No RADIOLOGY DEPARTMENT: General X-ray: Exam(s) Completed: Chest X-Ray PERIPHERAL IV DATA: Not applicable SIGNED BY: RT Los(Reji) July 03, 2024 12:58 [facility]12-16-2024 NoteHNO ID: [id number] Author: FRANTZ AREVALO PA-C Service: ? Author Type: Physician Lock Stitch Channeler Type: Progress Notes Filed: 06/26/2024 11:03 Note Text: This note was created using FOODITYter. Subjective Ghislaine Givens is a 34 year [...] - ICD9: 493.90, ICD10: J45.20 MIGUEL A [facility]12-16-2024 History of Present illness Narrative* Frantz Arevalo PA-C - 06/26/2024 10:55 AM EST This note was created using FOODITYter. Subjective Ghislaine Givens is a 34 year [...] J45.20 Frantz Arevalo PA-C documented in this encounterOhio[facility]01-12-2024 Procedure [facility]12-21-2023 History of Present illness Narrative* Andres Galaviz APRN.[facility] - 07/01/2023 10:42 AM EST Images [...] ophthalmology. Appointment scheduled today 115. Andres Galaviz APRN.[facility] documented in this encounterOhio[facility]12-16-2023 Discharge summary Author Alex Christiansen [facility] June 26, 2023 6:14pm Note Date/Time June 26, 2023 12:09pm [facility] Medical Records Department [address] [place] [address] Emergency Department Summary 06/26/23 MR#: [id number] Acct: [id number] Name: GHISLAINE GIVENS Rep #:[id number] : 1990 33 From: Taiwo Chen MD [...] pharmacy. She denies any other new symptoms. [facility] Medical History Anxiety Asthma Constipation [...] mg rectal suppository (Dulcolax (bisacodyl)) 10 mg SD DAILY 3 days #12 ea 01/15/23 [Rx [...] % (Auto) 63.6 Lymph % (Auto) 30.6 Conway % (Auto) 4.3 Eos % (Auto) 0.2 [...] [Dulcolax (bisacodyl)] 10 mg suppository 10 mg SD DAILY 3 Days Qty: 12 0RF Rx [...] your Primary Care Provider. Call [facility] ([phone]) or report to the closest Emergency Room. Call 911 if necessary. 06/26/23 1641 <Electronically signed by Taiwo Chen MD> Cosigner Signature (if applicable): CC: Dr. Sophy Gibbons ~ Signed ADDENDUM by Dr. Alex Christiansen DO on 06/26/23 at 3565 Patient signed out to me for follow-up. [...] applicable): cc: Dr. Sophy Gibbons ~* Signed [facility] Work Phone: 1([phone]) 385-494210-29-2023 Progress note Author Rickey Gifford [facility] May 09, 2023 11:46am Note Date/Time May 09, 2023 7 :55am [facility] Medical Records Department [address] [place] [address] Progress Note - Hospitalist 05/09/23 0752 MR#: [id number] Acct: [id number] Name: GHISLAINE GIVENS Rep #:[id number] : 1990 33 From: Rickey Gifford DO PCP: Care Physician,No Primary Status :ADM IN Location: [address] Reason for Visit Reason for Visit: [...] does have constipation. Also reviewing records through [employer]. Charges/Coding Visit Charges Inpatient E&M: 81604 Subs Hosp L3 05/09/23 1146 <Electronically signed by Rickey Gifford DO> Cosigner Signature (if applicable): CC: ~ Signed [facility] Work Phone: [phone]) 346-478610-29-2023 Progress note Author Abdirizak Forrest [facility] May 09, 2023 10:47am Note Date/Time May 09, 2023 1 0:19am [facility] Medical Records Department [address] [place] [address] Progress Note - Surgery 05/09/23 1018 MR#: [id number] Acct: [id number] Name: GHISLAINE GIVENS Rep #:[id number] : 1990 33 From: Abdirizak COELLO PCP: Care Physician,No Primary Status :ADM IN Location: [place] [id number] Subjective Subjective Ms. Givens is a 33-year-old [...] Cosigner Signature (if applicable): CC: ~ Signed [facility] Work Phone: [phone]) 522-996210-28-2023 Progress note Author Rickey Gifford [facility] May 08, 2023 10:48am Note Date/Time May 08, 2023 7 :51am [facility] Medical Records Department [address] [place] [address] Progress Note - Hospitalist 05/08/23 0749 MR#: [id number] Acct: [id number] Name: GHISLAINE GIVENS Rep #:[id number] : 1990 33 From: Rickey Gifford DO PCP: Care Physician,No Primary Status :ADM IN Location: [place] [address] Reason for Visit Reason for Visit: Diagnoses [...] with enoxaparin. Charges/Coding Visit Charges Inpatient E&M: 25740 Subs Hosp L2 05/08/23 1048 <Electronically signed by Rickey Gifford DO> Cosigner Signature (if applicable): CC: ~ Signed [facility] Work Phone: 1(693) 296-329010-28-2023 Progress note Author Abdirizak Forrest [facility] May 08, 2023 10:31am Note Date/Time May 08, 2023 9 :18am [facility] Medical Records Department [address] [place] [address] Progress Note - Surgery 05/08/23916 MR#: [id number] Acct: [id number] Name: GHISLAINE GIVENS Rep #:[id number] : 1990 33 From: Abdirizak COELLO PCP: Care Physician,No Primary Status :ADM IN Location: [facility] JR139-9 Subjective Subjective Mrs. Givens is a 33-year-old [...] Cosigner Signature (if applicable): CC: ~ Signed [facility] Work Phone: 1([phone]) 552-483110-27-2023 Procedure [facility] 05-07-2023 Progress note Author Rickey Gifford [facility] May 07, 2023 12:40pm Note Date/Time May 07, 2023 1 2:36pm [facility] Medical Records Department [address] [place] [address] Progress Note - Hospitalist 05/07/23 1229 MR#: [id number] Acct: [id number] Name: GHISLAINE GIVENS Rep #:[id number] : 1990 33 From: Rickey Gifford DO PCP: Care Physician,No Primary Status :ADM IN Location: [facility] OL304-6 Reason for Visit Reason for Visit: Diagnoses [...] her symptoms. Charges/Coding Visit Charges Inpatient E&M: 50681 Subs Hosp L2 05/07/23 1240 <Electronically signed by Rickey Gifford DO> Cosigner Signature (if applicable): CC: ~ Signed [facility] Work Phone: [phone] 841-910710-26-2023 Consult note Author Rickey Gifford [facility] May 06, 2023 4:46pm Note Date/Time May 04, 2023 8 :30pm [facility] Medical Records Department [address] [place] [address] Pharmacokinetic/Renal -Consult 05/04/232026 MR#: [id number] Acct: [id number] Name: GHILSAINE GIVENS Rep #:[id number] : 1990 33 From: Otto enamorado PCP: Care Physician,No Primary Status :ADM IN Location: [address] Consult Antibiotic Management Pharmacy has been [...] will continue with 1000mg IV q8h per [facility] dosing protocol. Will check a trough [...] Date Rickey Gifford DO CC: ~ Signed [facility] Work Phone: 1(462) 586-549010-26-2023 Consult note Author Rickey Gifford [facility] May 06, 2023 4:46pm Note Date/Time May 05, 2023 2 :05pm [facility] Medical Records Department [address] [place] [address] Pharmacokinetic/Renal -Consult 05/05/23 1404 MR#: [id number] Acct: [id number] Name: GHISLAINE GIVENS Rep #:[id number] : 1990 33 From: Gage Trejo PCP: Care Physician,No Primary Status :ADM IN Y Location: [place] HZ106-9 Consult Antibiotic Management Pharmacy has been consulted [...] Date Rickey Gifford DO CC: ~ Signed [facility] Work Phone: [phone]) 559-206210-26-2023 Progress note Author iRckey Gifford [facility] May 06, 2023 2:03pm Note Date/Time May 06, 2023 8 :47am [facility] Medical Records Department [address] [place] [address] Progress Note - Hospitalist 05/06/23 0844 MR#: [id number] Acct: [id number] Name: GHISLAINE GIVENS Rep #:[id number] : 1990 33 From: Rickey Gifford DO PCP: Care Physician,No Primary Status :ADM IN Location: [place] [address]-1 Reason for Visit Reason for Visit: Diagnoses [...] (Auto) 40.5 L, Lymph % (Auto) 49.6H, Conway % (Auto) 8.4, Eos % (Auto) 0.3, [...] 11:07 EDT Reading Location ID and State: [facility] / [place] , Service support , Physical Exam Const [...] with enoxaparin. Charges/Coding Visit Charges Inpatient E&M: 86114 Subs Hosp L1 05/06/23 1403 <Electronically signed by Rickey Gifford DO> Cosigner Signature (if applicable): CC: ~ Signed [facility] Work Phone: 1([phone]) 626-193710-26-2023 Progress note Author Abdirizak Forrest [facility] May 06, 2023 8:10am Note Date/Time May 06, 2023 8 :10am [facility] Medical Records Department [address] [place] [address] Progress Note - Surgery 05/06/23 0802 MR#: [id number] Acct: [id number] Name: GHISLAINE GIVENS Rep #:[id number] : 1990 33 From: Abdirizak Gupta PM PCP: Care Physician,No Primary Status :ADM IN Location: [place] JF311-6 Subjective Subjective Ms. Givens is a 33-year-old [...] (Auto) 40.5 L, Lymph % (Auto) 49.6H, Conway % (Auto) 8.4, Eos % (Auto) 0.3, [...] Cosigner Signature (if applicable): CC: ~ Signed [facility] Work Phone: [phone]) 127-931310-25-2023 Progress note Author Rickey Gifford [facility] May 05, 2023 1:09pm Note Date/Time May 05, 2023 7 :49am [facility] Medical Records Department [address] [place] [address] Progress Note - Hospitalist 05/05/23 0745 MR#: [id number] Acct: [id number] Name: GHISLAINE GIVENS Rep #:[id number] : 1990 33 From: Rickey Gifford DO PCP: Care Physician,No Primary Status :ADM IN Location: [place] [address]-1 Reason for Visit Reason for Visit: Diagnoses [...] 73.2 H, Lymph % (Auto) 14.9 L, Conway % (Auto) 10.2 H, Eos % (Auto) [...] % (Auto) 56.9, Lymph % (Auto) 30.9, Conway % (Auto) 11.1 H, Eos % (Auto) [...] with enoxaparin. Charges/Coding Visit Charges Inpatient E&M: 89189 Subs Hosp L2 05/05/23 1309 <Electronically signed by Rickey Gifford DO> Cosigner Signature (if applicable): CC: ~ Signed [facility] Work Phone: [phone]) 324-505310-25-2023 Progress note Author Abdirizak Forrest [facility] May 05, 2023 10:17am Note Date/Time May 05, 2023 8 :29am [facility] Medical Records Department [address] [place] [address] Progress Note - Surgery 05/05/2329 MR#: [id number] Acct: [id number] Name: GHISLAINE GIVENS Rep #:[id number] : 1990 33 From: Abdirizak COELLO PCP: Care Physician,No Primary Status :ADM IN Location: [place] IX748-3 Subjective Subjective Ms. Givens is a 33-year-old [...] 73.2 H, Lymph % (Auto) 14.9 L, Conway % (Auto) 10.2 H, Eos % (Auto) [...] % (Auto) 56.9, Lymph % (Auto) 30.9, Conway % (Auto) 11.1 H, Eos % (Auto) [...] Cosigner Signature (if applicable): CC: ~ Signed [facility] Work Phone: 1(527) 354-968310-24-2023 Consult note Author Abdirizak Forrest [facility] May 04, 2023 5:02pm Note Date/Time May 04, 2023 4 :48pm [facility] Medical Records Department [address] [place] [address] Consultation 05/04/23 1642 MR#: [id number] Acct: [id number] Name: ABDIGHISLAINE BARBOURREBA Rep #:[id number] : 1990 33 From: Abdirizak COELLO PCP: Care Physician,No Primary Status :[facility] Location: [facility] A-1 Assessment & Plan Assessment/Plan (1) [...] is a 33 F who presented to [facility] emergency department for concerns for worsening redness, [...] No other pedal complaints at this time. [facility] Medical History Anxiety Asthma Constipation Depression [...] mg rectal suppository (Dulcolax (bisacodyl)) 10 mg SD DAILY 3 days #12 ea 01/15/23 [Rx [...] 25 mg rectal suppository (Promethegan) 25 mg SD Q6H PRN PRN Nausea #6 supp 04/13/23 [...] 73.2 H, Lymph % (Auto) 14.9 L, Conway % (Auto) 10.2 H, Eos % (Auto) [...] 11:59 EDT Reading Location ID and State: [facility] / [place] , Service support , 05/04/23 1702 <Electronically signed by Abdirizak Forrest DPM> Cosigner Signature (if applicable): CC: No Primary Care Physician~ Signed [facility] Work Phone: [phone] 127-693210-24-2023 [facility] Discharge summary Author Javy Doss [facility] May 04, 2023 3:49pm Note Date/Time May 04, 2023 1 0:56am [facility] Medical Records Department [address] [place] [address] Emergency Department Summary 05/04/23 MR#: [id number] Acct: [id number] Name: GHISLAINE GIVENS Rep #:[id number] : 1990 33 From: Javy Doss DO PCP: Care Physician,No Primary Status :[facility] Location: [facility] A-1 HPI History of Present Illness [...] denies any fever. Patient is a diabetic. [facility] Medical History (Updated 05/04/23 @ [...] mg rectal suppository (Dulcolax (bisacodyl)) 10 mg SD DAILY 3 days #12 ea 01/15/23 [Rx [...] 25 mg rectal suppository (Promethegan) 25 mg SD Q6H PRN PRN Nausea #6 supp 04/13/23 [...] 73.2 H Lymph % (Auto) 14.9 L Conway % (Auto) 10.2 H Eos % (Auto) [...] Diabetes, Leukocytosis Disposition Disposition: Acute Care Hospital [facility] Discharge Date/Time: 05/04/23 15:25 What to do if you have Problems For any increased pain, shortness of breath, bleeding, nausea or vomiting, chestpain, or any unexpected problems, contact your Primary Care Provider. Call [facility] ([phone]) or report to the closest Emergency Room. Call 911 if necessary. 05/04/23 1549 <Electronically signed by Javy Doss DO> Cosigner Signature (if applicable): CC: No Primary Care Physician ~ Signed [facility] Work Phone: [phone] 260-802710-24-2023 History and physical note Author Rickey Gifford [facility] May 04, 2023 1:14pm Note Date/Time May 04, 2023 1 :13pm [facility] Medical Records Department [address] [facility] [place] [address] H&P Exam - Hospitalist 05/04/23 1309 MR#: [id number] Acct: [id number] Name: GHISLAINE GIVENS Rep #:[id number] : 1990 33 From: Rickey Gifford DO [...] Patient received vancomycin in the emergency room. [facility] Medical History (Updated 05/04/23 @ 13:11 [...] mg rectal suppository (Dulcolax (bisacodyl)) 10 mg SD DAILY 3 days #12 ea 01/15/23 [Rx [...] 25 mg rectal suppository (Promethegan) 25 mg SD Q6H PRN PRN Nausea #6 supp 04/13/23 [...] 73.2 H, Lymph % (Auto) 14.9 L, Conway % (Auto) 10.2 H, Eos % (Auto) [...] with enoxaparin. Charges/Coding Visit Charges Inpatient E&M: 95732 Init Hosp L2 05/04/23 1314 <Electronically signed by Rickey Gifford DO> Cosigner Signature (if applicable): CC: Dr. Rickey Gifford DO; No Primary Care Physician~ Signed [facility] Work Phone: 1(171) 450-512710-24-2023 History and physical note Author Rickey Gifford [facility] May 04, 2023 1:14pm Note Date/Time May 04, 2023 1 :13pm [facility] Medical Records Department [address] [place] [address] H&P Exam - Hospitalist 05/04/23 1309 MR#: [id number] Acct: [id number] Name: GHISLAINE GIVENS Rep #:[id number] : 1990 33 From: Rickey Gifford DO [...] Patient received vancomycin in the emergency room. [facility] Medical History (Updated 05/04/23 @ 13:11 [...] mg rectal suppository (Dulcolax (bisacodyl)) 10 mg SD DAILY 3 days #12 ea 01/15/23 [Rx [...] 25 mg rectal suppository (Promethegan) 25 mg SD Q6H PRN PRN Nausea #6 supp 04/13/23 [...] 73.2 H, Lymph % (Auto) 14.9 L, Conway % (Auto) 10.2 H, Eos % (Auto) [...] 11:59 EDT Reading Location ID and State: [facility] [facility] [place] , Service support , Assessment & Plan [...] with enoxaparin. Charges/Coding Visit Charges Inpatient E&M: 84528 Init Hosp L2 05/04/23 1314 <Electronically signed by Rickey Gifford DO> Cosigner Signature (if applicable): CC: Dr. Rickey Gifford DO; No Primary Care Physician~ Signed [facility] Work Phone: [phone]) 806-321210-05-2023 History of Present illness Narrative* Abdirizak Peña APRN.SUZANNE - 04/15/2023 11:13 AM EDT Patient triaged at [facility]. Here today with abd pain and sob, patients crying. Breathing easy but appears in pain. O2 100% on RA. Will refer to ER, declines squad, friend to drive to ER. documented in this encounterOhiohealth Marion [facility] Hospital09-15-2023 History of Present illness Narrative* Claritza Sierra - 03/26/2023 2:21 PM EDT POPULATION HEALTH NAVIGATION OUTREACH Action/FYI [place] Support: Called pt to schedule an appt in Pain Management. Lvm for pt to call [phone] for scheduling. Patient Identified by Name and : NO Outreach Outcome/Action Unable to reach patient: Left message Did you use a PCP flex slot to schedule this appointment? No Reason for Outreach Care Gap or Scheduling/Wellness visits Payer: Payor: [employer] MEDICAID / Plan: [employer] MEDICAID OF [place] / Product Type: Medicaid [...] 26, 2023 2:22 PM documented in this encounterOhiohealth Marion General Hospital09-01-2023 History of Present illness Narrative* Pilar Magdaleno APRN.CNP - 03/12/2023 12:12 PM EDT Please let patient know Dr. Sun is not in network. I have placed an order for pain management through the [facility]. documented in this encounterOhiohealth Marion General Hospital08-29-2023 Miscellaneous Notes* Telephone Encounter - Milagros Cloud RN - 03/09/2023 12:35 PM EDT Boyfriend calls and not listed on chart. Requested to speak to patient. Patient requesting pain management referral be faxed to Dr. Lr. Faxed per request to [phone]. Milagros Cloud RN documented in this encounterOhiohealth Marion General Hospital08-24-2023 NoteHNO ID: [id number] Author: Saida Lopez MD Service: ? Author Type: Physician Type: Progress Notes Filed: 03/11/2023 7:18 AM Note Text: Documentation Query Based on your medical judgment of the clinical indicators outlined below, please clarify the condition: (Please type X next to your response and sign) Clinical indicators: 03.03.23 Gastroenterology note KIER PLEATER: Plan: Nausea with vomiting Generalized abdominal pain [...] X Other, please specify___due to psychiatric problems [facility]08-24-2023 NoteHNO ID: [id number] Author: Saida Lopez MD Service: ? Author [...] by psych and GI. Discussed with social worker clinical/nurse outreach case manager. OK to discharge the patient. Rest of management as outpatient. I personally spent more than 30 minutes for discharge of this patient. Discussed with unit PA/KIER PLEATER about care plans. Recommended to see her [...] MD DATE: March 04, 2023 TIME: 11:57 [facility]08-24-2023 NoteHNO ID: [id number] Author: Croasmun, Cary, RN Service: Care Management [...] No Caregiver needed Transportation Arrangements Transportation Arrangements: TV[employer] Time Transportation Agency and Phone #:: [facility] [phone] Date of Trip: 03/04/23 Time of Trip: 1730 Type of Service: Wheelchair Is Patient Medicaid Pending?: No Was transportation financial coverage discussed with family?: Patient Statistician Applied Location: [facility] Destination: Home Financial Care Management Responsibility: [...] ED to Hosp-Admission (Current) from 03/01/2023 in [facility] Observation Unit Medical Follow-Up Appointment Specialty Psychaitry Behavior Health/Jose L Mccarthy Provider Name [facility] Address [address] [place] [address], [place] [address] Additional Instructions Please call for appointment to establish physician for mental health SIGNATURE: Cary Pino RN PATIENT NAME: Ghislaine Givens DATE: March 04, 2023 TIME: 11:26 AM CONTACT #: [phone] NoteHNO ID: [id number] Author: Cary Pino RN Service: Care Management [...] 04, 2023 TIME: 11:25 AM PAGER/CONTACT #: [phone] Note HNO ID: [id number] Author: Saida Lopez MD Service: ? Author [...] to discharge in AM. Discussed with social worker clinical/nurse outreach case manager. Advance diet. Physical Examination: GENERAL: alert, no [...] MD DATE: March 03, 2023 TIME: 3:15 [facility]08-23-2023 NoteHNO ID: [id number] Author: Frida Scott APRN.KIER PLEATER Service: Gastroenterology Author Type: Nurse Practitioner Type: Plan of Care Filed: 03/03/2023 11:30 AM Note Text: DEPARTMENT OF GASTROENTEROLOGY AND HEPATOLOGY [facility] INPATIENT VISIT DATE AND TIME 03/03/23 11:16 [...] mild gastritis and an esophageal ulcer at [facility]. Patient presented from outpatient GI clinic [...] and re-consult as needed. SIGNATURE: Frida Scott APRN.KIER PLEATER PAGER/CONTACT #: For concerns during days 7a-5p, contact JOB LITHOGRAPHER directly [phone] Please page [phone] for covering attending concernsThree Rivers Healthcare08-22-2023 Telephone encounter Note* Telephone Encounter - Almita Kelly PA-C - 03/02/2023 2:30 PM EDT Hi, The patient needs outpatient GES for persistent nausea and vomiting once optimized. Orders placed. The patient is a Dr. Doran patient and should follow- up with him. Thanks! Almita Kelly PA-C Gastroenterology and Hepatology [facility]08-22-2023 Miscellaneous Notes* Telephone Encounter - Almita Kelly PA-C - 03/02/2023 2:30 PM EDT Hi, The patient needs outpatient GES for persistent nausea and vomiting once optimized. Orders placed. The patient is a Dr. Doran patient and should follow- up with him. Thanks! Almita Kelly PA-C Gastroenterology and Hepatology documented in this encounterOhiohealth Marion General Hospital08-22-2023 History of Present illness Narrative* Claritza Sierra - 03/02/2023 1:27 PM EDT POPULATION HEALTH NAVIGATION OUTREACH Action/I [place] Support: Called pt to schedule an appt in Pain Management. No voicemail, unable to lvm Patient Identified by Name and : NO Outreach Outcome/Action Unable to reach patient: Phone number not valid / voicemail full Did you use a PCP flex slot to schedule this appointment? No Reason for Outreach Care Gap or Scheduling/Wellness visits Payer: Payor: [employer] MEDICAID / Plan: [employer] MEDICAID OF [place] / Product Type: Medicaid [...] 02, 2023 1:27 PM documented in this encounterOhiohealth Marion General Hospital08-22-2023 NoteHNO ID: [id number] Author: Ghislaine Mancilla RN Service: ? Author Type: Registered Nurse Type: Progress Notes Filed: 03/02/2023 5:47 PM Note Text: IV access lost. X2 RN attempted to get new access with no success. AMET and NOM notified and states will come and attempt soon. JOB LITHOGRAPHER notified via secure chat. Patient also complains of pain for second time this shift and JOB LITHOGRAPHER notified for second time as well. States tylenol did not work when given during morning medication rounds. Patient now walking halls as she states movement helps with pain at times. Informed JOB LITHOGRAPHER of patient calus/wound to right foot as [...] and MOVIPREP will be moved to shift boss to attempt at a later time. As patient states she cannot tolerate drinking. 1730 Patient ordered oral contrast dye with CT. monitor tech states patient refusing to drink oral contrast. GI made aware via secure chat but no changes to orders made at this time. Patient will be sent to room with contrast dye per monitor tech. If pt drinks contrast and can keep in her body CT asked to be called and patient will then have the scan.[facility] 03-02-2023 NoteHNO ID: [id number] Author: Cary Pino RN Service: Care Management [...] Home Advance Directives Current Advance Directive: None Artist Blacksmith Attempted to Assist with AD Completion: Yes [...] General wellness, Be able to go home [place] of Choice Explained: [place] of Choice Given: No Reason Not Given: [...] during this admission, please contact Case Management. [phone]. Uber transport will be needed once stable for discharge. HX Depression Bipolar disorder DM SIGNATURE: Cary Pino RN PATIENT NAME: Ghislaine Givens DATE: March 02, 2023 TIME: 8:46 AM CONTACT #: [phone] History of Present illness Narrative* Dewayne Doran MD - 03/01/2023 10:40 AM EDT NAME: Ghislaine Givens AGE: [age] year old Referred by: Pilar Magdaleno [address] [place] [phone] Referred for: an opinion regarding nausea and [...] Past Histories independently gathered by the clinical support merchandiser and the remaining scribed note accurately describes [...] PHYSICIAN Dewayne Doran MD documented in this encounterOhiohealth Marion General Hospital08-15-2023 History of Present illness Narrative* Pilar Magdaleno APRN.KIER PLEATER - 02/23/2023 10:11 AM EDT Chief Complaint Patient presents with: Hospital F/U [facility] Ghislaine Givens is a 33 year [...] - CONSULT TO PAIN MGT Pilar Magdaleno APRN.KIER PLEATER documented in this encounterOhiohealth Marion General Hospital08-08-2023 Note. MICRO - Microbiology PROCEDURE: Blood [...] Locations *1: This test was performed at: [address], [facility]- , [facility] ([place])02-16-2023 Note. MICRO - Microbiology PROCEDURE: Blood Culture [...] Locations *1: This test was performed at: [facility], [address] [place] [address], [address]- , [facility] ([place])02-11-2023 Hospital Discharge instructions Patient Education 02/11/2023 17:15:56 [...] as coffee and soda. Take and apply bwqt-klv-abeerae and prescription medicines only as told by [...] 10/06/2017 Document Revised: 11/04/2018 Document Reviewed: 10/06/2017 [employer] Patient Education 2020 [employer]. 02/11/2023 17:15:45 Nausea, Adult, Cnzq-ht-Yopw Nausea, Adult Nausea is feeling sick to [...] fruit juice). ?Low-calorie sports drinks. Eat bland, rdma-tf-iqqajs foods in small amounts as you are able, such as: ?Bananas. ?Applesauce. ?Rice. ?Low-fat (lean) meats. ?Goldsby. ?Crackers. Avoid drinking fluids that have a lot of sugar or caffeine in them. This includes energy drinks, sports drinks, and soda. Avoid alcohol. Avoid spicy or fatty foods. General instructions Take lzaq-asl-hbnesdh and prescription medicines only as told by your doctor. Rest at home while you get better. Drink enough fluid to keep your pee (urine) pale yellow. Take slow and deep breaths when you feel sick to your stomach. Avoid food or things that have strong smells. Wash your hands often with soap and water. If you cannot use soap and water, use hand medical attendant. Make sure that all people in your [...] drink what your doctor tells you. Take mljk-xxn-jrrpzww and prescription medicines only as told by [...] 06/16/2012 Document Revised: 12/06/2018 Document Reviewed: 12/06/2018 [employer] Patient Education [place]. Follow Up Care 02/10/2023 23:24:03 With:AMY SOLORZANO STAGE ELECTRICIAN-KIER PLEATER Address: [address] [place] [phone] When:3-5 days Comments:Please call to schedule your post-hospital follow-up appointment. [facility] 08-03-2023 Note Date of Service 02/11/2023 Chief Complaint C/o generalized ABD pain, N/V, multiple recent falls. States she has not been checking her blood sugar either. States she is supposed to be using insulin for DM. History of Present Illness 33-year-old female with past medical history significant for HTN, type 2 diabetes mellitus, neuropathy, depression/anxiety, asthma, cannabis use. Patient [facility] to [facility] emergency department on 02/10/2023 with a [...] and pelvis with contrast. 01/07/2023 and 01/09/2023 [facility] ED visit 01/10/[address] [facility] [address] abdomen and pelvis with contrast that showed left hydrosalpinx, mildly dilated CBD with adjacent more than expected khurram hepatis adenopathy which may be reactive. She was treated with IV fluids and antiemetics and discharged. 01/12/2023 and 01/13/2023 [facility] ED visit treated with IV fluids and antiemetics, haldol and discharged. 01/14/2023 [facility] emergency department visit. IV fluids and antiemetics given. Admitted for hypokalemia. CT abdomen and pelvis with bilateral small ovarian cysts. 01/17/2023 [facility] [address] ED visit. CT abdomen and pelvis with contrast showed underfilling versus mucosal thickening at rectosigmoid colon. Otherwise unremarkable. 01/24 [facility] emergency department visit. Discharged with a prescription for Keflex and Reglan. No imaging done. 01/25 [facility] emergency department treated with IV fluids and antiemetics. 727: She was seen in urgent care and advised to go to the emergency department. [facility] ED visit treated with IV fluids and antiemetics and discharged. She was seen at [facility] on 02/08. She had CT of [...] images of this examination and agree with [facility] findings and interpretation. XR Abdomen AP [...] by MARTI WEBB on 02/11/2023 07:14 PM [facility]08-03-2023 Note Discharge Instructions Thank you for allowing [facility] to assist you with your healthcare needs. The following is importantdischarge information regarding your hospital visit. Your Care Team [facility] IN[facility]IENT [facility] Your Diagnosis Abdominal pain Hyponatremia [...] to schedule your post-hospital follow-up appointment. Where: [address] [place] [address]- [phone] The Following Activity and Diet Have Been [...] a day Duration: 7 Days Pickup at [facility] Unchanged promethazine (promethazine 25 mg rectal suppository) 1 suppository(ies) in the rectum Every 6 hours as needed for for nausea/vomiting Cannabis hyperemesis syndrome co-occurrent and due to cannabis abuse Pharmacy Information [facility]: [address] [place], [place] [phone] What How Much When Why Comments Stop [...] as coffee and soda. Take and apply tnnd-ylk-opjoyas and prescription medicines only as told by [...] 10/06/2017 Document Revised: 11/04/2018 Document Reviewed: 10/06/2017 [employer] Patient Education 2020 [employer] Nausea, Adult Nausea is feeling sick [...] juice). ? Low-calorie sports drinks. Eat bland, rion-zt-rxnewh foods in small amounts as you are able, such as: ? Bananas. ? Applesauce. ? Rice. ? Low-fat (lean) meats. ? Goldsby. ? Crackers. Avoid drinking fluids that have a lot of sugar or caffeine in them. This includes energy drinks, sports drinks, and soda. Avoid alcohol. Avoid spicy or fatty foods. General instructions Take kbml-uyf-aqigcou and prescription medicines only as told by your doctor. Rest at home while you get better. Drink enough fluid to keep your pee (urine) pale yellow. Take slow and deep breaths when you feel sick to your stomach. Avoid food or things that have strong smells. Wash your hands often with soap and water. If you cannot use soap and water, use hand medical attendant. Make sure that all people in your [...] drink what your doctor tells you. Take agsg-uim-wadtgsu and prescription medicines only as told by [...] 06/16/2012 Document Revised: 12/06/2018 Document Reviewed: 12/06/2018 [employer] Patient Education 2020 [employer] Additional Information VACCINATE! IT SAVES LIVES! Members of the community who have not yet received the COVID-19 vaccine and would like to receive it can visit one of [facility] vaccine clinics. There are many vaccine clinic locations within the [facility]. For locations and available times, please visit https://gettheshot.coronavirus.[place].gov/. It is important to note that some COVID mobile vaccine clinics are held outdoors and may be canceled in rainy or stormy conditions. To learn more about pediatric vaccinations (ages 5-11), we invite you to visit the [employer] [facility] webpage. https://www.akLola Pirindolas.org/pages/9107-Qnucy-Ngqqelsfqks-Ueltqmetor-Kvbjr-Bop stions.htmlTo learn more about the COVID-19 vaccine, we invite you to visit the CDC website for a list of frequently asked questions.https://www.cdc.gov/coronavirus/2019-ncov/vaccines/faq.html [facility] Patient Portal Access Instructions: Stay connected with your healthcare team and access your personal medical information anytime with the [facility] Patient Portal. Please follow the directions below to create your [employer] account: 1.Access the email account you provided upon registration to the hospital/physician office.2.Look for an invitation email from [facility].3.Open the email and access the invitation link: AcceptInvitation to [facility].4.Fill in the required joy to create your account. To access your account, visit [email or web address]. Click the blue button labeled Access Patient Portal and then log in with the username and password that you created in the steps above. You will be able to view your test results, lab results, a summary of your visits, upcoming appointments and more. There is also a convenient messaging option where you can send secure messages to your p [employer]chv[employer]. In addition, you will have the ability to download any documents or summaries to your computer and/or send the information securely to a physician. Remember that your healthcare information is confidential, so carefully consider who you will allowto register on the [facility] Patient Portal for access to your information. You can also access the [facility] Patient Portal on the [facility] della. Simply click on Patient Portal and then log into your account. If you would like to receive a full copy of your medical records, please contact the [facility] Medical Records Department by calling [phone], Wednesday through Wednesday between 8 a.m. and [...] Call your local pharmacy or go to http://bit.[employer]/2U8Zv5l to find one close to you.3.Make use of household items: Use cat litter or old coffee grounds to dispose medications if other options arenot available. Mix your drugs with these household products, seal them in an airtight container andthrow it into the garbage. Call [facility]: [phone] to be sure your drugs can be [...] Education Materials Cannabinoid Hyperemesis Syndrome Nausea, Adult, Aouh-ro-Biay Medication Leaflets My discharge plan and instructions have been reviewed and explained to me and I,GHISLAINE GIVENS understand my current condition and have read and understand these discharge instructions. I have received a written copy of the plan/instructions. If I have questions, I am aware that I should contact my doctor. Patient/Vamp Presser Signature: Date/Time: Relationship to Patient: Witness Name/Signature: Date/Time: [facility]08-03-2023 Note ORIGINAL EXAMINATION: GASTRIC EMPTYING STUDY02/11/2023 [...] noteExtracted from: Title:History and Physical Author:MARTI WEBB STAGE ELECTRICIAN-KIER PLEATER Date:02/11/23 1. Abdominal pain 2. Hyponatremia 3. [...] and may include grammatical and/or spelling errors. [facility] 08-03-2023 Note ORIGINAL EXAMINATION: TRANSVAGINAL PELVIC [...] Sign Date: 02/11/2023 12:11:13 PM Ordering Provider: [facility]08-03-2023 Note ORIGINAL EXAMINATION: ONE SUPINE XRAY [...] Sign Date: 02/11/2023 9:28:54 AM Ordering Provider: [facility]08-03-2023 Note ORIGINAL EXAMINATION: COMPLETE ABDOMINAL ULTRASOUND [...] Sign Date: 02/11/2023 1:29:01 PM Ordering Provider: [facility]07-27-2023 History of Present illness Narrative* Irais [...] that due to limited diagnostic capabilities in [facility], I recommend she go back to the ER since she is having pain and unable to keep down fluids. She understands. She does have a PCP, but would like a new one. I had our spares scheduler help with scheduling a PCP appointment for the future, but still advise she go to the ER today. documented in this encounterOhiohealth [facility] Hospital07-16-2023 Hospital Discharge instructions* Discharge Instructions* Abdirizak [...] your results today. Thank you for choosing [facility] for your care. Sincerely, Abdirizak Ramirez MD documented in this [facility]07-16-2023 Emergency department Note* Abdirizak Ramirez MD - 01/24/2023 10:03 AM EDT [facility] ED EMERGENCY DEPARTMENT ENCOUNTER Pt Name: [...] Culture. Procedure Abnormality Status --------- ------ Complete Urinalysis[[id number]] Abnormal Final result Please view results for [...] of DVT, no recent surgery/immobilization. Based on saudi arabian syncope rule (see below), patient is low risk and well appearing here, plan to discharge the patient home with PMD follow up. [place] syncope rule: predisposition to vasovagal symptoms/consistent with [...] PM PATIENT REFERRED TO: Amy Solorzano [address] [facility] [phone] Schedule an appointment as soon as possible [...] Abdirizak Ramirez MD [facility] Emergency Medicine Physician [facility] Abdirizak Ramirez MD 01/24/23 1303 * Tamica Penaloza RN - 01/24/2023 10:03 AM EDT Patient to room 15 with c/o vomiting for 3 weeks. Patient reports being at [facility] and being told it was [facility], and there was nothing more they could do for her. Patient reports having Zofran at home that she doesn't take, because it has not relieved her symptoms. V/S obtained, call light within reach. documented in this encounterSMemorial Health [id number] Emergency department Triage note* Tamica Penaloza RN - 01/24/2023 10:03 AM EDT Patient to room 15 with c/o vomiting for 3 weeks. Patient reports being at [facility] and being told it was [facility], and there was nothing more they could do for her. Patient reports having Zofran at home that she doesn't take, because it has not relieved her symptoms. V/S obtained, call light within reach. [id number] Physician Emergency department Note* Abdirizak Ramirez MD - 01/24/2023 10:03 AM EDT [facility] ED EMERGENCY DEPARTMENT ENCOUNTER Pt Name: [...] Physician [facility] (Per Emergency Physician): Interpretation per the [...] Culture. Procedure Abnormality Status --------- ------ Complete Urinalysis[[id number]] Abnormal Final result Please view results for [...] of DVT, no recent surgery/immobilization. Based on saudi arabian syncope rule (see below), patient is low risk and well appearing here, plan to discharge the patient home with PMD follow up. [place] syncope rule: predisposition to vasovagal symptoms/consistent with [...] PM PATIENT REFERRED TO: Amy Solorzano [address] [facility] [phone] Schedule an appointment as soon as possible [...] Abdirizak Ramirez MD [facility] Emergency Medicine Physician [facility] Abdirizak Ramirez MD 01/24/23 1303 [facility] [id number] Discharge summary Author Lexus Villatoro [facility] January 15, 2023 2:12pm Note Date/Time January 15, 2023 2:11p m [facility] Medical Records Department [address] [facility] [place] [address] Instructions for Home/Discharge Instructions 01/15/23 1411 MR#: [id number] Acct: [id number] Name: GHISLAINE GIVENS Rep #:[id number] : 1990 32 From: Lexus Villatoro MD PCP: [facility] atus:ADM BOB Discharge Instructions Diet Discharge [...] Attending Provider: Lexus Villatoro [facility] Instructions Patient Instructions: Cannabinoid Hyperemesis Syndrome, [...] [Dulcolax (bisacodyl)] 10 mg suppository 10 mg SD DAILY 3 Days Qty: 12 0RF Rx [...] 7 0RF [facility] - Within 1 Week Disposition Disposition (needs filled in before D/C Order can be placed): Home, Self Care 01/15/23 1411<Electronically signed by Lexus Villatoro MD>Lexus Villatoro MD CC: [facility] ~ Signed ADDENDUM by Dr. Lexus Villatoro MD on 01/15/23 at 1412 You were noted to have a small ovarian cyst, this was seen previous on a scan ofyour abdomen as well. Please follow up with your PCP or ob/prevention coordinator for further management and monitoring 01/15/231411<Electronically signed by Lexus Villatoro MD>Lexus Villatoro MD cc: [facility] ~* Signed [facility] Work Phone: [phone]) 704-100307-07-2023 Discharge summary Author Lexus Villatoro [facility] January 15, 2023 2:23pm Note Date/Time January 15, 2023 2:12p m [facility] Medical Records Department [address] [place] [address] Discharge Summary 01/15/231410 MR#: [id number] Acct: [id number] Name: GHISLAINE GIVENS Rep #:[id number] : 1990 32 From: Lexus Villatoro MD PCP: [facility] St atus:ADM BOB Location: [place] [address] Providers Date of Admission: 01/14/23 Date of Discharge: 01/15/23 Primary Care Physician: [facility] Reason For Visit: INTRACTABLE NAUSEA VOMITING, HYPOKALEMIA [...] complication status: with neurologic complications Diabetes mellitus keno terminal operator insulin use: without keno terminal operator use Diabetes mellitus type: type 2 Plan [...] mg rectal suppository (Dulcolax (bisacodyl)) 10 mg SD DAILY 3 days #12 ea 01/15/23 scopolamine base 1 mg over 3 days transdermal patch 1 patch transdermal Q3D PRN nausea and vomiting #4 ea 01/15/23 Hospital Course Summary of Care Provided Minutes Spent on Discharge: 31 Hospital Course: GHISLAINE GIVENS, is a 32-year-old female with history of type 2 diabetes mellitus, hypertension, depression who presents to [facility] 01/14/2023 with 1 week of nausea, vomiting, [...] Please follow up with your PCP or ob/prevention coordinator for further management and monitoring -Please call [...] % (Auto) 56.4, Lymph % (Auto) 34.2, Conway% (Auto) 8.2, Eos % (Auto) 0.3, Baso [...] Attending Provider: Lexus Villatoro [facility] Instructions Patient Instructions: Cannabinoid Hyperemesis Syndrome, [...] Please follow up with your PCP or ob/prevention coordinator for further management and monitoring -Please call [...] [Dulcolax (bisacodyl)] 10 mg suppository 10 mg SD DAILY 3 Days Qty: 12 0RF Rx [...] Qty: 7 0RF [facility] - Within 1 Week Disposition Disposition (needs filled in before D/C Order can be placed): Home, Self Care Charges/Coding Visit Charges Inpatient E&M: 16663 Disch Hosp >30min 01/15/23 1423 <Electronically signed by Leuxs Villatoro MD> Cosigner Signature (if applicable): CC: Dr. Lexus Villatoro MD; [facility]~ Signed [facility] Work Phone: 1(454) 656-585107-06-2023 History and physical note Author Lexus Villatoro [facility] January 14, 2023 6:10pm Note Date/Time January 14, 2023 3:59p m [facility] Medical Records Department [address] [place] [address] H&P Exam - Hospitalist 01/14/23 1552 MR#: [id number] Acct: [id number] Name: GHISLAINE GIVENS Rep #:[id number] : 1990 32 From: Lexus Villatoro MD PCP: [facility] St atus:ADM BOB Location: [address] HPI - General General Date of Admission: 01/14/23 Date of Service: 01/14/23 Chief Complaint: Nausea HPI Narrative GHISLAINE GIVENS, is a 32-year-old female with history of type 2 diabetes mellitus, hypertension, depression who presents to [facility] 01/14/2023 with 1 week of nausea, vomiting, [...] urinating regularly. Denies any other specific complaints [facility] Medical History Anxiety Asthma Constipation Depression [...] % (Auto) 59.7, Lymph % (Auto) 31.2, Conway% (Auto) 7.7, Eos % (Auto) 0.2, Baso [...] Clarity Clear, Urine pH 8.0, Ur Specific Buckeye 1.015, Urine Protein 15 H, Urine Glucose [...] documentation, 58minutes Charges/Coding Visit Charges Inpatient E&M: 28877 Init Hosp L2 01/14/23 1810 <Electronically signed by Lexus Villatoro MD> Cosigner Signature (if applicable): CC: Dr. Lexus Villatoro MD; [facility]~ Signed [facility] Work Phone: 1([phone]) 201-801107-06-2023 Discharge summary Author Willie Dhillon [facility] January 14, 2023 3:33pm Note Date/Time January 14, 2023 12:08 pm [facility] Medical Records Department [address] [place] [address] Emergency Department Summary 01/14/23 MR#: [id number] Acct: [id number] Name: GHISLAINE GIVENS Rep #:[id number] : 1990 32 From: Willie Dhillon MD PCP: [facility] St atus:REG ER Location: ED HPI History [...] had any for a day or so. [facility] Medical History Anxiety Asthma Constipation [...] % (Auto) 59.7 Lymph % (Auto) 31.2 Conway % (Auto) 7.7 Eos % (Auto) 0.2 [...] Clarity Clear Urine pH 8.0 Ur Specific Buckeye 1.015 Urine Protein 15 H Urine Glucose [...] 13:57 EDT Reading Location ID and State: [facility] / [place] , Service support , Discharge Plan Dx/Rx/DC Orders Clinical Impression: Failure of outpatient treatment, Elevated serum creatinine, Intractable nausea and vomiting, Acute hypokalemia Disposition Disposition: Acute Care Hospital [facility] What to do if you have Problems For any increased pain, shortness of breath, bleeding, nausea or vomiting, chestpain, or any unexpected problems, contact your Primary Care Provider. Call [facility] ([phone]) or report to the closest Emergency Room. Call 911 if necessary. 01/14/23 1533 <Electronically signed by Willie Dhillon MD> Cosigner Signature (if applicable): CC: [facility] ~ Signed [facility] Work Phone: [phone]) 334-114107-04-2023 Discharge summary Author Fabricio Guevara [facility] January 12, 2023 1:18pm Note Date/Time January 12, 2023 10:58 am [facility] Medical Records Department [address] [place] [address] Emergency Department Summary 01/12/23 MR#: [id number] Acct: [id number] Name: GHISLAINE GIVENS Rep #:[id number] : 1990 32 From: Fabricio Guevara MD PCP: [facility] St atus:REG ER Location: ED HPI HPI [...] 30 minutes before bedtime Primary Care Provider: [facility] Sophy Santiago [facility] - 3-5 Days if not improving Activity Restrictions/Additional Instructions: Zofran as needed for nausea. Follow-up with your doctor as needed. Stop using marijuana. Disposition Disposition: Home, Self Care What to do if you have Problems For any increased pain, shortness of breath, bleeding, nausea or vomiting, chestpain, or any unexpected problems, contact your Primary Care Provider. Call [facility] ([phone]) or report to the closest Emergency Room. Call 911 if necessary. 01/12/23 1318 <Electronically signed by Fabricio Guevara MD> Cosigner Signature (if applicable): CC: [facility] ~ Signed [facility] Work Phone: [phone]) 944-446707-04-2023 Note. MICRO - Microbiology PROCEDURE: Urine Culture [...] Locations *1: This test was performed at: [facility], [address] [place] [address], [address]- , [facility] ([place])01-10-2023 Hospital Discharge instructions Patient Education 01/10/2023 17:43:53 [...] and water are not available, use alcohol-based medical attendant to keep from spreading the infection to [...] Yellow color of the eyes or skin 5407-[address] [employer] [address] [place] [address]. All rights reserved. This information is not [...] National Alcohol and Substance Abuse Information Center (717)-045-7547 www.addictioncareReflectance Medicalions.com National Eagle on Alcoholism and Drug Dependence 206-149-4768 www.ncadd.org Marijuana Anonymous 615-977-1343 www.marijuana-anonymous.org When to seek medical advice Call your healthcare provider right away if any of these occur: You feel extreme depression, fear, anxiety, or anger toward yourself or others. You feel out of control. You feel that you may try to harm yourself or another. You experience chest pain or shortness of breath. 3089-[address] [employer] [address] [place] [address]. All rights reserved. This information is not intended as a substitute for professional medical care. Always follow yourhealthcare professional's instructions. Follow Up Care 01/10/2023 13:44:57 With:Call Physician Referral Address:Unknown When:2-4 days [facility] 07-02-2023 Note Discharge Instructions Thank you for allowing [facility] to assist you with your healthcare needs. [...] may report side effects to FDA at 8-807-NIT-1145. What other drugs will affect promethazine? Using promethazine with other drugs that make you drowsy can worsen this effect. Ask your doctor before using opioid medication, a sleeping pill, a muscle relaxer, or medicine for anxiety or seizures. Other drugs may affect promethazine, including prescription and anae-plv-yhstmgg medicines, vitamins, and herbal products. Tell your [...] to ensure that the information provided by [employer]. ('[employer]') is accurate, up-to-date, and complete, but no guarantee is made to that effect. Drug information contained herein may be time sensitive. [employer] information has been compiled for use by healthcare practitioners and consumers in the [place] and therefore [employer] does not warrant that uses outside of the [place] are appropriate, unless specifically indicated otherwise. [employer] drug information does not endorse drugs, diagnose patients or recommend therapy. [employer] drug information isan informational resource designed to [...] effective or appropriate for any given patient. [employer] does not assume any responsibility for any aspect of healthcare administered with the aid of information [employer] provides. The information contained herein is not intended to cover all possible uses, directions, precautions, warnings, drug interactions, allergic reactions, or adverse effects. If you have questions about the drugs you are taking, check with your doctor, nurse or pharmacist. Copyright 8182-1086 [employer]. Version: 8.01. Revision Date: 08/06/2021. prochlorperazine (oral/injection) [...] What is prochlorperazine? Prochlorperazine is a phenothiazine (TEPA-vn-TCTB-a-zeen) antipsychotic medicine that is used to treat [...] may report side effects to FDA at 6-161-EAU-6725. What other drugs will affect prochlorperazine? Using [...] may affect prochlorperazine. This includes prescription and oqtd-uqm-cvkthyr medicines, vitamins, and herbal products. Not all [...] to ensure that the information provided by [employer] ('[employer]') is accurate, up-to-date, and complete, but no guarantee is made to that effect. Drug information contained herein may be time sensitive. [employer] information has been compiled for use by healthcare practitioners and consumers in the [place] and therefore [employer] does not warrant that uses outside of the [place] are appropriate, unless specifically indicated otherwise. [employer] drug information does not endorse drugs, diagnose patients or recommend therapy. [employer] drug information isan informational resource designed to [...] effective or appropriate for any given patient. [employer] does not assume any responsibility for any aspect of healthcare administered with the aid of information [employer] provides. The information contained herein is not intended to cover all possible uses, directions, precautions, warnings, drug interactions, allergic reactions, or adverse effects. If you have questions about the drugs you are taking, check with your doctor, nurse or pharmacist. Copyright 6672-3164 [employer]. Version: 12.. Revision Date: 11/03/2019. Education Materials [...] and water are not available, use alcohol-based medical attendant to keep from spreading the infection to [...] Yellow color of the eyes or skin 1479-4770 [employer]. [address] [place] [address]. All rights reserved. This information is not [...] National Alcohol and Substance Abuse Information Center (671)-885-0934 www.addictioncareNeoMedia Technologies.com National Eagle on Alcoholism and Drug Dependence 154-133-4187 www.ncadd.org Marijuana Anonymous 910-438-8064 www.marijuana-anonymous.org When to seek medical advice Call your healthcare provider right away if any of these occur: You feel extreme depression, fear, anxiety, or anger toward yourself or others. You feel out of control. You feel that you may try to harm yourself or another. You experience chest pain or shortness of breath. 4684-38[address] [employer] [address]. [address] [place] [address]. All rights reserved. This information is not intended as a substitute for professional medical care. Always follow yourhealthcare professional's instructions. Additional Information VACCINATE! IT SAVES LIVES! Members of the community who have not yet received the COVID-19 vaccine and would like to receive it can visit one of [facility] vaccine clinics. There are many vaccine clinic locations within the [facility]. For locations and available times, please visit www.gettheshot.coronavirus.[place].gov/. It is important to note that some COVID mobile vaccine clinics are held outdoors and may be canceled in rainy or stormy conditions. To learn more about pediatric vaccinations (ages 5-11), we invite you to visit the [facility] webpage. https://www.[facility].org/pages/3787-Kuvzd-Yefeonubxfq-Czpcrfbtca-Yqjgj-Gzc stions.htmlTo learn more about the COVID-19 vaccine, we invite you to visit the CDC website for a list of frequently asked questions. https://www.cdc.gov/coronavirus/2019-ncov/vaccines/faq.html [facility] Patient Portal Access Instructions: Stay connected with your healthcare team and access your personal medical information anytime with the [employer] Patient Portal. If you would like a full copy of your medical records please contact the [facility] Medical Records Department Wednesday through Wednesday between 8a.m. and 4:30p.m. Please follow the directions below to access the portal: 1.Access the email account you provided upon registration to the [facility].2.Look for an invitation email from [facility].3.Open the email and access the invitation link: Accept Invitation to [facility]4.Fill in the required joy to create your account. Sign into www.Intexys with your username and password that you [...] you will allow to register on the [employer] Patient Portal for access to your information. You can also access the [employer] Patient Portal on the [employer]. Simply click on Health Records under HealthData and then click on the [employer] logo. HOW TO SAFELY DISPOSE OF PRESCRIPTION [...] Call your local pharmacy or go to http://bit.ly/6G2Jk9z to find one close to you.3.Make use of household items: Use cat litter or old coffee grounds to dispose medications if other options arenot available. Mix your drugs with these household products, seal them in an airtight container andthrow it into the garbage. Call [facility]: [phone] to be sure your drugs can be [...] aware that I should contact my doctor. Patient/Vamp Presser Signature: Date/Time: Relationship to Patient: Witness Name/Signature: Date/Time: [facility] [id number] Note ORIGINAL EXAMINATION: CT OF THE ABDOMEN [...] Date: 01/10/2023 4:59:31 PM Ordering Provider: [facility]07-02-2023 Note ORIGINAL EXAMINATION: CT OF THE [...] Sign Date: 01/10/2023 4:59:31 PM Ordering Provider: [facility]07-02-2023 Evaluation + Plan note Diagnostic Tests Pending * Urine Culture 01/10/23 [facility] 06-29-2023 Discharge summary Author Poli Barfield [facility] January 07, 2023 2:08pm Note Date/Time January 07, 2023 8:55 am [facility] Medical Records Department [address] [place] [address] Emergency Department Summary 01/07/23 MR#: [id number] Acct: [id number] Name: GHISLAINE GIVENS Rep #:[id number] : 1990 32 From: Poli Farah PCP: [facility] St atus:REG ER Location: ED HPI HPI [...] clinician: N/A This note was generated with Elias Borges Urzeda dictation software. It may contain incorrectwords, spelling, [...] % (Auto) 53.2 Lymph % (Auto) 38.5 Conway % (Auto) 5.9 Eos % (Auto) 1.0 [...] Days Qty: 21 0RF [facility] [Primary Care Provider] - 3-5 Days [...] your Primary Care Provider. Call [facility] ([phone]) or report to the closest Emergency Room. Call 911 if necessary. 01/07/23 1408 <Electronically signed by Poli Farah> Cosigner Signature (if applicable): CC: [facility] ~ Signed [facility] Work Phone: 1(321) 451-409805-09-2023 History of Present illness Narrative* Andres Galaviz APRN.KIER PLEATER - 11/17/2022 8:45 AM EDT Images from [...] of care. This note was generated using Elias Borges Urzeda software. It may contain errors in wording, punctuation, or spelling. Andres Galaviz APRN.SUZANNE documented in this [facility]Ohio[facility]04-03-2023 Miscellaneous Notes* Telephone Encounter - Romana [...] ER if symptoms worsen. documented in this encounterOhiohealth [facility] Hospital03-30-2023 History of Present illness Narrative* Shamika Goins PA-C - 10/08/2022 9:08 AM EDT Images from the original note were not included. This note was created using FOODITYter. Subjective Ghislaine Givens is a 32 year [...] tolerated it fine. Recommend she call her rigging and controls aircraft mechanic today to be seen. Likely MRSA with [...] Z86.14 Shamika Goins PA-C documented in this encounterOhiohealth [facility] Hospital02-04-[address] Villatoro [facility] August 15, 2022 11:44am Note Date/Time August 15, 2022 1 1:38am [facility] Medical Records Department [address] [place] [address] Instructions for Home/Discharge Instructions 08/15/22 1132 MR#: [id number] Acct: [id number] Name: GHISLAINE GIVENS Rep #:[id number] : 1990 32 From: Lexus Villatoro MD [...] be sent to your preferred pharmacy, [facility] ?Please continue all other home medications -Please [...] subcutaneous twice daily Referrals / Follow Up: Sophy Gibbons [Primary Care Provider] - Within 1 Week Disposition Disposition (needs filled in before D/C Order can be placed): Home, Self Care 08/15/22 1144<Electronically signed by Lexus Villatoro MD>Lexus Villatoro MD CC: Dr. Valencia Urbina MD; Dr. Sophy Gibbons ~ Signed [facility] Work Phone: 1(355) 575-562202-03-[address] Villatoro [facility] August 14, 2022 8:50am Note Date/Time August 14, 2022 8 :50am [facility] Medical Records Department [address] [place] [address] Progress Note - Hospitalist 08/14/22845 MR#: [id number] Acct: [id number] Name: GHISLAINE GIVENS Rep #:[id number] : 1990 32 From: Lexus Villatoro MD PCP: Dr. Sophy Gibbons Status:ADM IN Location: [place] [id number]- 1 Subjective Subjective Irritable this morning, reports [...] Neut % (Auto) 65.7, Lymph % (Auto)22.3, Conway % (Auto) 8.6, Eos % (Auto) 0.6, [...] diabetes mellitus, hypertension, depression who presents to [facility] 08/12 with hyperglycemia andtachycardia. She was recently [...] documentation, 30Minutes Charges/Coding Visit Charges Inpatient E&M: 90502 Subs Hosp L2 08/14/22 0850 <Electronically signed by Lexus Villatoro MD> Cosigner Signature (if applicable): CC: ~ Signed [facility] Work Phone: 1(438) 551-371002-02-[address] Villatoro [facility] August 13, 2022 4:34pm Note Date/Time August 13, 2022 8 :40am [facility] Medical Records Department [address] [place] [address] Progress Note - Hospitalist 08/13/22 0832 MR#: [id number] Acct: [id number] Name: GHISLAINE GIVENS Rep #:[id number] : 1990 32 From: Lexus Villatoro MD PCP: Dr. Sophy Gibbons Status:ADM IN Location: [place] [address] Subjective Subjective Reports slight cough which she [...] % (Auto) 69.8, Lymph % (Auto) 20.1, Conway % (Auto) 8.7, Eos % (Auto) 0.1, [...] (MDRD) Non-Af 61, BUN/Creatinine Ratio 7.2 L, Tltdbvc069 H, Calcium 9.6, Magnesium 1.6, Total Bilirubin 0.50, AST 20, ALT 13, Alkaline Phosphatase 136 H, Troponin I High Sens 6, Total Protein 9.2 H, Albumin2.9 L, Globulin 6.3 H, Albumin/Globulin Ratio 0.5 L 08/12/22 16:22: Acetone Level NEGATIVE 08/12/22 16:22: Urine Color Yellow, Urine Clarity Clear, Urine pH 6.0, Ur Specific Buckeye 1.010, Urine Protein 100 H, Urine Glucose [...] 71.0 H, Lymph % (Auto) 17.3 L, Conway % (Auto) 9.7, Eos % (Auto) 0.2, Baso % (Auto) 0.5, Absolute Neuts (auto) 10.6 H, Absolute Lymphs (auto) 2.59, Nucleated RBC % 0 08/13/22 05:17: Sodium 134 L, Potassium 4.1, Chloride 102, Carbon Dioxide 22.0, Anion Gap 10, BUN 7, Creatinine 0.86, Estim Creat Clear Calc 89.54, Est GFR (MDRD) Af Amer 99, Est GFR (MDRD) Non-Af 82, BUN/Creatinine Ratio 8.1 L, Bkdeejd406 H, Calcium 8.6, Magnesium 2.2, Total Bilirubin [...] diabetes mellitus, hypertension, depression who presents to [facility] 08/12 with hyperglycemia andtachycardia. She was recently [...] documentation, 40Minutes Charges/Coding Visit Charges Inpatient E&M: 07700 Subs Hosp L2 08/13/22 1634 <Electronically signed by Lexus Villatoro MD> Cosigner Signature (if applicable): CC: ~ Signed [facility] Work Phone: 1(161) 744-314202-02-[address] Christiansen [facility] August 12, 2022 10:42pm Note Date/Time August 12, 2022 3 :41pm [facility] Medical Records Department [address] [place] [address] Emergency Department Summary 08/12/22 MR#: [id number] Acct: [id number] Name: GHISLAINE GIVENS Rep #:[id number] : 1990 32 From: Alex Christiansen DO PCP: Dr. Sophy Gibbons Status:ADM IN Location: [place] [address] HPI History of Present Illness Chief Complaint: Hyperglycemia Narrative Narrative: 32-year-old female presenting with hyperglycemia. She states that [facility] and they were unable to check [...] which is completely healing and doing well. [facility] Medical History (Updated 08/12/22 @ [...] % (Auto) 69.8 Lymph % (Auto) 20.1 Conway % (Auto) 8.7 Eos % (Auto) 0.1 [...] Color Urine Clarity Urine pH Ur Specific Buckeye Urine Protein Urine Glucose (UA) Urine Ketones [...] (Auto) Neut % (Auto) Lymph % (Auto) Conway % (Auto) Eos % (Auto) Baso % [...] Clarity Clear Urine pH 6.0 Ur Specific Buckeye 1.010 Urine Protein 100 H Urine Glucose [...] (Auto) Neut % (Auto) Lymph % (Auto) Conway % (Auto) Eos % (Auto) Baso % [...] Color Urine Clarity Urine pH Ur Specific Buckeye Urine Protein Urine Glucose (UA) Urine Ketones [...] Discharge Plan Disposition Disposition: Acute Care Hospital [facility] Discharge Date/Time: 08/12/22 22:03 What to do if you have Problems For any increased pain, shortness of breath, bleeding, nausea or vomiting, chestpain, or any unexpected problems, contact your Primary Care Provider. Call [facility] ([phone]) or report to the closest Emergency Room. Call 911 if necessary. 08/12/222241 <Electronically signed by Alex Christiansen DO> Cosigner Signature (if applicable): CC: Dr. Sophy Gibbons ~ Signed [facility] Work Phone: 1(243) 823-936002-01-2023 History and physical note Author Dr. Urbina [facility] August 12, 2022 9:20pm Note Date/Time August 12, 2022 8 :09pm [facility] Medical Records Department [address] [place] [address] H&P Exam - Hospitalist 08/12/222008 MR#: [id number] Acct: [id number] Name: GHISLAINE GIVENS Rep #:[id number] : 1990 32 From: Valencia Urbina MD PCP: Dr. Sophy Gibbons Status:ADM IN Location: [facility] [id number]- 1 HPI - General General Date of Admission: 08/12/22 Date of Service: 08/12/22 Chief Complaint: Hyperglycemia, tachycardia HPI Narrative GHISLAINE GIVENS, is a 32 F who presents with the above. Patient has past medicalhistory of type II DM, recent discharge from the hospital on 06/29/22 for right diabetic foot infection status post right toe amputation. Patient was referred to the emergency room from [facility] for hyperglycemia and tachycardia. 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 [facility] Medical History (Updated 08/12/22 @ 21:20 [...] % (Auto) 69.8, Lymph % (Auto) 20.1, Conway % (Auto) 8.7, Eos % (Auto) 0.1, [...] (MDRD) Non-Af 61, BUN/Creatinine Ratio 7.2 L, [id number] H, Calcium 9.6, Magnesium 1.6, Total Bilirubin 0.50, AST 20, ALT 13, Alkaline Phosphatase 136 H, Troponin I High Sens 6, Total Protein 9.2 H, Albumin2.9 L, Globulin 6.3 H, Albumin/Globulin Ratio 0.5 L 08/12/22 16:22: Acetone Level NEGATIVE 08/12/22 16:22: Urine Color Yellow, Urine Clarity Clear, Urine pH 6.0, Ur Specific Buckeye 1.010, Urine Protein 100 H, Urine Glucose [...] room physician. Charges/Coding Visit Charges Inpatient E&M: 09884 Init Hosp L2 08/12/222119 <Electronically signed by Valencia Urbina MD> Cosigner Signature (if applicable): CC: Dr. Valencia Urbina MD; Dr. Sophy Gibbons~ Signed [facility] Work Phone: 1(415) 524-555609-12-2022 History of Present illness Narrative* Luis Mayes, [...] 23, 2022 1:00 PM [facility] History of Present illness Narrative* Sid [...] CORONAVIRUS Sid Bravo MD documented in this encounter[facility]07-25-2022 History of Present illness Narrative* Alyssa Jaime, STAGE ELECTRICIAN.KIER PLEATER - 02/02/2022 9:56 AM EDT Subjective The history is provided by the patient. No speech language pathologist prn was used. HPI Ghislaine Givens is a [...] Wt 92.5 kg (204 lb) LMP 05/18/2021 FhR219% BMI 32.93 kg/m Social History Tobacco Use Smoking status: Current Every Day Smoker Packs/day: 0.50 Years: 3.00 Pack years: 1.50 Types: Cigarettes Smokeless tobacco: Never Used Substance Use Topics Alcohol use: Yes Comment: Seldom Drug use: No PAST MEDICAL HISTORY Diagnosis Date Bipolar 1 disorder (HCC) 2007 Depression Elevated BP 04/28/2013 Insomnia I have confirmed and edited as necessary, the [facility] Review of Systems Constitutional: Negative [...] for primary care, unable to get in [place] until May. - CONSULT TO PULM/CRITICAL CARE [...] Level: 3 - Low documented in this encounterOhio[facility]07-25-2022 Instructions* Patient Instructions* Alyssa Jaime APRN.CNP - 02/02/2022 9:52 AM EDT Will set up follow for primary care and pulmonology To ER for worsening symptoms, increased pain, fevers, vomiting, decreased urine output, blood in her urine blood in her stools or dark tarry stools. documented in this encounterOhio[facility]11-04-2021 History of Present illness Narrative* Luis [...] 15, 2021 9:57 AM documented in this encounterOhio[facility]10-18-2013 History of Past illness Narrative* Problem [...] of this encounter (statuses as of 02/02/2022) [facility] of Past illness Narrative* Problem [...] of this encounter (statuses as of 03/23/2022) [facility] of Past illness Narrative* Problem [...] of this encounter (statuses as of 10/08/2022) [facility] of Past illness Narrative* Problem [...] of this encounter (statuses as of 10/12/2022) [facility] of Past illness Narrative* Problem [...] of this encounter (statuses as of 11/17/2022) [facility] of Past illness Narrative* Problem [...] of this encounter (statuses as of 02/04/2023) [facility] of Past illness Narrative* Problem [...] of this encounter (statuses as of 02/24/2023) [facility] of Past illness Narrative* Problem [...] of this encounter (statuses as of 03/02/2023) [facility] of Past illness Narrative* Problem [...] of this encounter (statuses as of 03/02/2023) [facility] of Past illness Narrative* Problem [...] of this encounter (statuses as of 03/09/2023) [facility] of [facility] illness Narrative* Problem [...] of this encounter (statuses as of 03/10/2023) [facility] illness Narrative* Problem [...] of this encounter (statuses as of 03/12/2023) [facility] illness Narrative* Problem [...] of this encounter (statuses as of 03/26/2023) [facility] of Past illness Narrative* Problem [...] of this encounter (statuses as of 04/16/2023) [facility] of Past illness Narrative* Problem [...] of this encounter (statuses as of 07/02/2023) [facility] Hospital[facility] summary Author Rickey Gifford [facility] May 09, 2023 2:02pm Note Date/Time May 09, 2023 2 :02pm [facility] Medical Records Department [address] [place] [address] Discharge Summary 05/09/23 1354 MR#: [id number] Acct: [id number] Name: GHISLAINE GIVENS Rep #:[id number] : 1990 33 From: Rickey Gifford DO PCP: Care Physician,No Primary Status :ADM IN Location: [place] [address] Providers Date of Admission: 05/04/23 Primary Care Physician: No Primary Care Phys Consultations 05/04/23 19:30 Consult: 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 Data for OSH review through [facility]: * CT A/P on 03/03/23: Unremarkable. * [...] mg rectal suppository (Dulcolax (bisacodyl)) 10 mg SD DAILY 3 days #12 ea 01/15/23 acetaminophen [...] review data from outside hospitals including [facility] as well as [facility] and [place], [place]. Patient has had CAT scans, EGDs, [...] by some anxiety. Do recommend [facility] with [facility]. To be beneficial for [...] [Dulcolax (bisacodyl)] 10 mg suppository 10 mg SD DAILY 3 Days Qty: 12 0RF Rx [...] Primary [Primary Care Provider] - Amy Solorzano JOB LITHOGRAPHER, JOB LITHOGRAPHER-C [Non-Staff -Ordering Privileges] - Within 2 Weeks Disposition Disposition (needs filled in before D/C Order can be placed): Home, Self Care Charges/Coding Visit Charges Inpatient E&M: 25127 Disch Hosp >30min 05/09/23 1402 <Electronically signed by Rickey Gifford DO> Cosigner Signature (if applicable): CC: YESY Forrest; PATRICE Solorzano; Dr. Rickey Gifford DO; No Primary Care Physician~ Signed [facility] Work Phone: Discharge summary Author Gale Lr [facility] Note Date/Time November 28, 2024 12:31 pm [facility] Medical Records Department [address] [place] [address] Discharge Summary 11/28/24 1203 MR#: [id number] Acct: [id number] Name: GHISLAINE GIVENS Rep #:[id number] : 1990 34 From: Gale Lr DO PCP: BROOKLYN Warren, PATRICE Statu s:ADM IN Location: [place] [address]-1 Providers Date of Admission: 11/25/24 Date of [...] who presented to the emergency department at [facility] on 11/25/2024 with a chief complaint of [...] (Auto) 49.8, Lymph % (Auto) 43.0 H, Conway % (Auto) 5.3, Eos % (Auto) 0.5, [...] as compared to prior study. Reading Location: [place] [address] D/C Instructions Discharge Diet: 1800 Calorie Control [...] tomorrow to set up appointment) Amy Solorzano, JOB LITHOGRAPHER-C [Primary Care Provider] - In 1 Week Disposition Disposition (needs filled in before D/C Order can be placed): Home, Self Care Charges/Coding Visit Charges Inpatient E&M: 88330 Disch Hosp >30min 11/28/24 1231 <Electronically signed by Gale Lr DO> Cosigner Signature (if applicable): CC: BROOK[place]N JOB LITHOGRAPHERKaykay Solorzano; Dr. Gale Lr DO~ Signed [facility] Work Phone: Evaluation noteNo assessment information available [facility] Work Phone: Evaluation note* Diagnosis Onset Date Resolution Status Abdominal pain acute [facility] Work Phone: Evaluation note* Diagnosis Abnormal lung scan- Primary Nonspecific abnormal results of pulmonary system function study Nausea and vomiting, unspecified vomiting type [facility]* Diagnosis Acute cough- Primary Mild intermittent asthmatic bronchitis without complication [facility]* Diagnosis Onset Date Resolution Status Abdominal pain acute Encounter for pre-employment health screening examination acute [facility] Work Phone: Evaluation note* Diagnosis Onset Date Resolution Status Abdominal pain acute Encounter for pre-employment health screening examination acute Cellulitis of foot, right ac agdaagux Diabetes acute Diabetic foot infection acut e Leukocytosis acute [facility] Work Phone: evaluation note* Diagnosis Onset Date Resolution Status Abdominal pain acute Encounter for pre-employment health screening examination acute Cellulitis and abscess of right lower extremity acute Cellulitis of foot, right ac agdaagux Diabetes acute Diabetes mellitus with diabetic polyneuropathy acute Diabetic foot infection acut e Leukocytosis acute Osteomyelitis acute Type 2 diabetes mellitus with foot ulcer acute 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 [facility] Work Phone: evaluation note* Diagnosis Onset Date Resolution Status Cellulitis and abscess of right lower extremity acute Cellulitis of foot, right ac agdaagux Diabetes acute Diabetes mellitus with diabetic polyneuropathy [...] acut e Lactic acidosis acute Osteomyelitis acute [facility] Work Phone: Evaluation note* Diagnosis Onset Date Resolution Status Cellulitis and abscess of right lower extremity acute Cellulitis of foot, right ac agdaagux Diabetes acute Diabetes mellitus with diabetic polyneuropathy acute Diabetic foot infection acut e Leukocytosis acute Osteomyelitis acute Type 2 diabetes mellitus with foot ulcer acute 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 Cellulitis and abscess of right lower extremity acute Cellulitis of foot, right ac agdaagux Diabetes mellitus with diabetic polyneuropathy acute Diabetic foot infection acut e Lactic acidosis acute Osteomyelitis acute Type 2 diabetes mellitus with foot ulcer acute [facility] Work Phone: Evaluation note* Diagnosis Onset Date Resolution Status Cellulitis and abscess of right lower extremity acute Cellulitis of foot, right ac agdaagux Diabetic foot infection acut e Osteomyelitis acute Lactic acidosis resolved Acute pyelonephritis acute [facility] Work Phone: Evaluation note* Diagnosis Toe infection- Primary Unspecified local infection of skin and subcutaneous tissue Facial infection Other specified infectious and parasitic diseases History of MRSA infection Personal history of Methicillin resistant Staphylococcus aureus documented in this encounter [facility] note* Diagnosis Facial infection- Primary Other specified infectious and parasitic diseases documented in this encounter [facility] note* Diagnosis Onset Date Resolution Status Acute hypokalemia acute Cannabis abuse acute Diabetes acute Elevated serum creatinine ac agdaagux Failure of outpatient treatment acute Intractable nausea and vomiting acute [facility] Work Phone: Evaluation note* Diagnosis Onset Date Resolution Status Acute hypokalemia acute Cannabis abuse acute Diabetes acute Intractable nausea and vomiting acute [facility] Work Phone: Evaluation note* Diagnosis Nausea and vomiting, unspecified vomiting type- Primary Syncope and collapse documented in this encounter [facility] note* Diagnosis Generalized abdominal pain- Primary Abdominal pain, generalized documented in this encounter [facility] note* Diagnosis Chronic nausea- Primary Nausea alone Chronic abdominal pain Abdominal pain, unspecified site documented in this encounter [facility] note* Diagnosis Vomiting, unspecified vomiting type, unspecified whether nausea present- Primary Chronic nausea Nausea alone documented in this encounter [facility] note* Diagnosis Chronic abdominal pain- Primary Abdominal pain, unspecified site documented in this encounter [facility] note* Diagnosis SOB (shortness of breath)- Primary Shortness of breath Abdominal pain, unspecified abdominal location documented in this encounter [facility] note* Diagnosis Onset Date Resolution Status Acute hypokalemia acute Cannabis abuse acute Diabetes acute Intractable nausea and vomiting acute Diabetes acute Diabetic foot infection acut e Leukocytosis acute [facility] Work Phone: Evaluation note* Diagnosis Onset Date [...] right foot with fat layer exposed chronic [facility] Work Phone: Evaluation note* Diagnosis Onset Date Resolution Status Diabetic foot infection reso lved Gas gangrene resolved Leukocytosis resolved Non-pressure chronic ulcer o f other part of right foot with fat layer exposed resolved Tightness of right heel cord resolved [facility] Work Phone: Evaluation note* Diagnosis Pain of right eye- Primary Pain in or around eye documented [facility] this encounter [facility]* Diagnosis Onset Date Resolution Status Diabetic [...] right foot with fat layer exposed resolved [facility] Work Phone: Evaluation note* Diagnosis Onset Date Resolution Status Acute painful diabetic polyneuropathy acute Other acute osteomyelitis, right ankle and foot acute Non-pressure chronic ulcer o f other part of right foot with fat layer exposed resolved [facility] Work Phone: Evaluation note* Diagnosis Nausea- Primary Nausea alone documented in this encounter [facility] note* Diagnosis Type II or unspecified type diabetes mellitus without mention of complication, uncontrolled- Primary Morbid obesity with BMI of 40.0-44.9, adult ([facility]) Morbid obesity Elevated BP Elevated blood pressure reading without diagnosis of hypertension Acute cough Mild intermittent asthmatic bronchitis without complication documented [facility] this encounter [facility]* Diagnosis Type II or unspecified type diabetes mellitus without mention of complication, uncontrolled- Primary Morbid obesity with BMI of 40.0-44.9, adult (HCC) Morbid obesity Elevated BP Elevated blood pressure reading without diagnosis of hypertension Cough documented in this encounter [facility] note* Diagnosis Type II or unspecified type diabetes mellitus without mention of complication, uncontrolled- Primary Morbid obesity with BMI of 40.0-44.9, adult (HCC) Morbid obesity Elevated BP Elevated blood pressure reading without diagnosis of hypertension Bronchopneumonia- Primary Bronchopneumonia, organism unspecified Mild intermittent asthma, uncomplicated Unspecified asthma documented [facility] this encounter [facility]* Diagnosis Type II or unspecified type diabetes mellitus without mention of complication, uncontrolled- Primary Morbid obesity with BMI of 40.0-44.9, adult (HCC) Morbid obesity Elevated BP Elevated blood pressure reading without diagnosis of hypertension Acute cough- Primary Acute cough [facility] this encounter [facility]* Diagnosis Type II or unspecified type diabetes mellitus without mention of complication, uncontrolled- Primary Morbid obesity with BMI of 40.0-44.9, adult (HCC) Morbid obesity Elevated BP Elevated blood pressure reading without diagnosis of hypertension Acute cough documented [facility] this encounter [facility]* Diagnosis Onset Date Resolution Status Admit Date Acute proctitis acute November 25, 2024 1:38pm Colitis acute November 25, 2024 1:38pm Fecal impaction acute November 25, 2024 1:38pm [facility] Work Phone: History and physical note Author Dr. Urbina [facility] August 12, 2022 9:20pm Note Date/Time August 12, 2022 8 :09pm [facility] Medical Records Department [address] [place] [address] H&P Exam - Hospitalist 08/12/222008 MR#: [id number] Acct: [id number] Name: GHISLAINE GIVENS Rep #:[id number] : 1990 32 From: Valencia Urbina MD PCP: Dr. Sophy Gibbons Status:ADM IN [facility] - General General Date [...] was referred to the emergency room from [facility] for hyperglycemia and tachycardia. 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 [facility] Medical History (Updated 08/12/22 @ 21:20 [...] % (Auto) 69.8, Lymph % (Auto) 20.1, Conway % (Auto) 8.7, Eos % (Auto) 0.1, [...] (MDRD) Non-Af 61, BUN/Creatinine Ratio 7.2 L, [id number] H, Calcium 9.6, Magnesium 1.6, Total Bilirubin 0.50, AST 20, ALT 13, Alkaline Phosphatase 136 H, Troponin I High Sens 6, Total Protein 9.2 H, Albumin2.9 L, Globulin 6.3 H, Albumin/Globulin Ratio 0.5 L 08/12/22 16:22: Acetone Level NEGATIVE 08/12/22 16:22: Urine Color Yellow, Urine Clarity Clear, Urine pH 6.0, Ur Specific Buckeye 1.010, Urine Protein 100 H, Urine Glucose [...] 18:42 EST Reading Location ID and State: [address] [place] [address] , Service support , Assessment & Plan [...] room physician. Charges/Coding Visit Charges Inpatient E&M: 01983 Init Hosp L2 08/12/222119 <Electronically signed by Valencia Urbina MD> Cosigner Signature (if applicable): CC: Dr. Valencia Urbina MD; Dr. Sophy Gibbons~ Signed [facility] Work Phone: History and physical note Author David Bain [facility] Note Date/Time December 30, 2024 1:09 pm [facility] Medical Records Department [address] [place] [address] H&P Exam - Hospitalist 12/30/24 1248 MR#: [id number] Acct: [id number] Name: GHISLAINE GIVENS Rep #:[id number] : 1990 34 From: David Gupta PCP: Amy Solorzano Sara, JOB LITHOGRAPHER-C Statu s:ADM IN Location: ICU CVICU20 3-1 [...] DKA therefore admitted. Vitals in normal limit. [facility] Medical History Diabetes GERD (gastroesophageal reflux disease) [...] (Auto) 70.7 H, Lymph % (Auto) 23.6, Conway % (Auto) 4.8, Eos % (Auto) 0.0, [...] Sl. Cloudy, Urine pH 5.0, Ur Specific Buckeye 1.025, Urine Protein 30 H, Urine Glucose [...] for 2 weeks. Weight loss counseling done. Telecommunications Support consult DVT prophylaxis, low risk: Early ambulation encouraged Living will/advanced directive/end of life care: Patient does not have living will or advanced directive. She does not have the [facility] power of deputy commonwealth's attorney for health. After discussion of benefits/risks procedures involved with full code,DNR CC arrest and DNR CC, the patient opted for full code. Patient does want artificial life support including intubation, tube feed, ventilator and/chest compression, central venous catheter, vasopressor and DC shock if needed Total time spent in [id number] encounter in discussion of advanced directive 17 minutes. Charges/Coding Visit Charges Inpatient E&M: 18265 Init Hosp L3 Procedures Hospitalists Procedures: 06501 Advncd Care Plan 30 Min 12/30/24 1309 <Electronically signed by David Bain MD> Cosigner Signature (if applicable): CC: [facility] JOB LITHOGRAPHER-C Amy Solorzano; Dr. David Bain MD~ Signed [facility] Work Phone: Hospital course Narrative No data available for this section [facility] Hospital Discharge instructions Additional Instructions Avoid marijuana use. Use the capsaicin cream every 6 hours as needed. Medication prescribed to use as needed. Continue oral fluids at home for hydration. Follow-up with your doctor.[facility] Work Phone: Hospital Discharge instructions Additional Instructions Please decrease your marijuana use. Please maintain hydration, use antinausea medicine as needed.[facility] Work Phone: Hospital Discharge instructions Additional Instructions Please fill the prescriptions that were prescribed to you from [facility] to help control your nausea and vomiting. Based on their CAT scan showing potential gallbladder or fallopian tube issues please have the ultrasounds obtained that were ordered on an outpatient basis this evening. If you have any further concerns return [facility] the [facility] Work Phone: Hospital Discharge instructions Additional Instructions Your CT scan showed inflammation of the rectum consistent with acute proctitis. This can be secondary to infection or just inflammation but because of your diabetes and elevation of your white count take the antibiotic to resolve an infectious cause. If you have any further concerns please return for [facility] Work Phone: Hospital Discharge instructions Additional Instructions I would recommend gentle massage of the tear duct. Warm compresses as discussed. I would highly encourage ophthalmologic follow-up. Monitor for worsening symptoms return if needed.[facility] Work Phone: Hospital Discharge instructions Additional Instructions [...] letting me be involved in your surgical care![facility] Work Phone: Reason for referral (narrative)* Diagnostic Procedure Only (Routine) - New Request Specialty Diagnoses / Procedures Referred By Ubaldo t Referred To Contact MOLECULAR & FUNCTIONAL IMAGING Diagnoses Nausea Procedures NM GASTRIC EMPTYING SOLID GASTRIC EMPTYING STUDY Almita Kelly PA-C [address] [place] [address] Molecular & Functional Imaging [address] [place] [address] Referral ID Status Reason Start Date Expiration Date Visits Requested Visits Authorized [id number] New Request Auto-Generat ed Referral 03/02/2023 03/31/2024 1 1 [facility] for referral (narrative)No reason for referral information [facility] Chief Complaint and [...] INFECTION DIABETIC FOOT INFECTION 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 Reason for Visit Abdominal pain Encounter [...] INFECTION DIABETIC FOOT INFECTION 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 LAB WORK Reason for Visit Abdominal pain [...] INFECTION DIABETIC FOOT INFECTION 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 LAB WORK 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 LABWORK CMP/CBC Reason for Visit Abdominal pain [...] INFECTION DIABETIC FOOT INFECTION 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 LAB WORK 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 LABWORK CMP/CBC DIABETIC FOOT ULCER Reason for [...] INFECTION DIABETIC FOOT INFECTION 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 LAB WORK 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 LABWORK CMP/CBC DIABETIC FOOT ULCER Reason for [...] INFECTION DIABETIC FOOT INFECTION 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 LAB WORK SHELTER LABWORK CMP/CBC DIABETIC FOOT ULCER DIAULCER DIAULCER [...] diabetes mellitus with foot ulcer Chief Complaint SHELTER LABWORK CMP/CBC DIABETIC FOOT ULCER DIAULCER DIAULCER DIAULCER DIAULCER DIAULCER ACUTE PYELONEPHRITIS ACUTE PYELONEPHRITIS Reason for Visit Cellulitis and absce ss of right lower extremity Cellulitis of foot, right Diabetic foot infection Osteomyelitis Lactic acidosis Acute pyelonephritis Chief Complaint SHELTER LABWORK CMP/CBC DIABETIC FOOT ULCER DIAULCER DIAULCER [...] No October 24, 2021 8:30am Power of Caption Writer No October 24 8:30am Advance Directive Response Recorded Date/ Time Living Will No October 29, 2021 9:39am Power of Caption Writer No October 29 9:39am Advance Directive Response Recorded Date/ Time Living Will No November 16, 2021 8: 50am Power of Caption Writer No November 16, 2021 8:50am Advance Directive Response Recorded Date/ Time Living Will No January 16, 2022 2 :46pm Power of Caption Writer No January 16, 2022 2:46pm Advance Directive Response Recorded Date/ Time Living Will No January 22, 2022 9:41pm Power of Caption Writer No January 22 9:41pm Advance Directive Response Recorded Date/ Time Living Will No January 23, 2022 4:29pm Power of Caption Writer No January 23 4:29pm Advance Directive Response Recorded Date/ Time Living Will No January 26, 2022 12:34pm Power of Caption Writer No January 26 12:34pm Advance Directive Response Recorded Date/ Time Living Will No February 01, 2022 1:07pm Power of Caption Writer No February 01 1:07pm Advance Directive Response Recorded Date/ Time Living Will No April 05, 2022 11:53am Power of Caption Writer No March 11:53am Advance Directive Response Recorded Date/ Time Living Will No April 06, 2022 12:58pm Power of Caption Writer No March 12:58pm Advance Directive Response Recorded Date/ Time Living Will No April 06, 2022 4:07pm Power of Caption Writer No March 4:07pm Advance Directive Response Recorded Date/ Time Living Will No June 24 3:40pm Power of Caption Writer No June 24, 2022 3:40pm Advance Directive Response Recorded Date/ Time Living Will No August 12 5:35pm Power of Caption Writer No August 12, 2022 5:35pm Advance Directive Response Recorded Date/ Time Living Will No August 12 10:55pm Power of Caption Writer No August 12, 2022 10:55pm Advance Directive Response Recorded Date/ Time Living Will No January 07, 2023 8:51am Power of Caption Writer No January 07 8:51am Advance Directive Response Recorded Date/ Time Living Will No January 09, 2023 1 2:00pm Power of Caption Writer No January 09, 2023 12:00pm Advance Directive Response Recorded Date/ Time Living Will No January 12, 2023 1 2:39am Power of Caption Writer No January 12, 2023 12:39am Advance Directive Response Recorded Date/ Time Living Will No January 12, 2023 1 2:53pm Power of Caption Writer No January 12, 2023 12:53pm Advance Directive Response Recorded Date/ Time Living Will No January 14, 2023 4 :21pm Power of Caption Writer No January 14, 2023 4:21pm Advance Directive Response Recorded Date/ Time Living Will No January 25, 2023 11:41am Power of Caption Writer No January 25 11:41am Advance Directive Response Recorded Date/ Time Living Will No February 08, 2023 12:35pm Power of Caption Writer No February 08 12:35pm Latest Code Status on File Code Status Date Activated Date Inactivated Comments Full Code 02/18/2023 1:58 AM 02/20/2023 4:13 PM Question Answer Comments Full Code Order Discussed With: Patient Advance Directive Response Recorded Date/ Time Living Will No February 26 12:10am Power of Caption Writer No February 26, 2 023 12:10am Latest [...] Will No March 06 8:38am Power of Caption Writer No March 06, 023 8:38am Latest Code [...] Will No May 04 12:14pm Power of Caption Writer No May 04, 2023 12:14pm Advance Directive Response Recorded Date/ Time Living Will No May 04 6:42pm Power of Caption Writer No May 04, 2023 6:42pm Advance Directive Response Recorded Date/ Time Living Will No May 04 5:42pm Power of Caption Writer No May 04, 2023 5:42pm Advance Directive Response Recorded Date/ Time Living Will No June 28 023 9:27am Power of Caption Writer No June 28, 2023 9:27am Advance Directive Response Recorded Date/ Time Living Will No July 02 9:33am Power of Caption Writer No July 02, 2023 9:33am Advance Directive Response Recorded Date/ Time Living Will No July 16 9:15am Power of Caption Writer No July 16 9:15am Advance Directive Response Recorded Date/ Time Living Will No July 16 10:15am Power of Caption Writer No July 16 10:15am Date Activated Date [...] No June 25, 023 9:33am Power of Caption Writer No June 25, 2023 9:33am Advance Directive Response Recorded Date/ Time Living Will No June 26 12:21pm Power of Caption Writer No June 26, 2023 12:21pm Advance Directive Response Recorded Date/ Time Living Will No June 27 5:53am Power of Caption Writer No June 27, 2023 5:53am Advance Directive Response Recorded Date/ Time Do you have a Healthcare Power of Caption Writer? No November 25, 2024 8:56am Advance Directive Response Recorded Date/ Time Do you have a Healthcare Power of Caption Writer? No November 25, 2024 2:54pm Advance Directive Response Recorded Date/ Time Do you have a Healthcare Power of Caption Writer? No November 25, 2024 2:54pm Do you have a Healthcare Power of Caption Writer? No December 30, 2024 10:23am Advance Directive Response Recorded Date/ Time Do you have a Healthcare Power of Caption Writer? No November 25, 2024 2:54pm Do you have a Healthcare Power of Caption Writer? No December 30, 2024 1:37pm Family History [...] scan Procedures CONSULT TO PULM/CRITICAL CARE OFFICE/OUTPATIENT [facility] 60-74 MINUTES Alyssa Jaime APRN.[facility]ER P[facility]ATER [address] [place] [address] Referral ID Status Reason Start Date Expiration Date Visits Requested Visits Authorized [id number] Authorized PCP Requested Referral 02/02/2022 02/02/2023 1 1 Specialty Diagnoses / Procedures Referred By Contac t Referred To Contact Pain Management Diagnoses Chronic abdominal pain Procedures CONSULT TO PAIN MGT OFFICE/OUTPATIENT [facility] 60-74 MINUTES Pilar Magdaleno APRN.[facility] [address] [id number] Referral ID Status Reason Start Date Expiration Date Visits Requested Visits Authorized [id number] Authorized PCP Requested Referral 02/23/2023 02/23/2024 1 1 Specialty Diagnoses / Procedures Referred By Contac t Referred To Contact Gastroenterology Diagnoses Chronic nausea Procedures CONSULT TO GASTROENTEROLOGY OFFICE/OUTPATIENT [facility] 60-74 MINUTES Pilar Magdaleno APRN.[facility] [address] [place] [address] Referral ID Status Reason Start Date Expiration Date Visits Requested Visits Authorized [id number] Authorized PCP Requested Referral 02/23/2023 02/23/2024 1 1 Referral ID Status Reason Start Date Expiration Date Visits Requested Visits Authorized [id number] Authorized PCP Requested Referral 03/12/2023 03/11/2024 1 [...] or prosecute any alcohol or drug abuse patient.[facility] the event this information is protected by the Federal Confidentiality of Alcohol and Drug Abuse Patient Records regulations: The Federal rules restrict any use of the information to criminally investigate or prosecute any alcohol or drug abuse patient.[facility] the event this information is protected by the Federal Confidentiality of Alcohol and Drug Abuse Patient Records regulations: The Federal rules restrict any use of the information to criminally investigate or prosecute any alcohol or drug abuse patient.[facility] the event this information is protected by the Federal Confidentiality of Alcohol and Drug Abuse Patient Records regulations: The Federal rules restrict any use of the information to criminally investigate or prosecute any alcohol or drug abuse patient.[facility] the event this information is protected by the Federal Confidentiality of Alcohol and Drug Abuse Patient Records regulations: The Federal rules restrict any use of the information to criminally investigate or prosecute any alcohol or drug abuse patient.[facility] HospitalIn the event this information is protected by the Federal Confidentiality of Alcohol and Drug Abuse Patient Records regulations: The Federal rules restrict any use of the information to criminally investigate or prosecute any alcohol or drug abuse patient.[facility]In the event this information is protected by the Federal Confidentiality of Alcohol and Drug Abuse Patient Records regulations: The Federal rules restrict any use of the information to criminally investigate or prosecute any alcohol or drug abuse patient.[facility]In the event this information is protected by the Federal Confidentiality of Alcohol and Drug Abuse Patient Records regulations: The Federal rules restrict any use of the information to criminally investigate or prosecute any alcohol or drug abuse patient.[facility] HospitalIn the event this information is protected by the Federal Confidentiality of Alcohol and Drug Abuse Patient Records regulations: The Federal rules restrict any use of the information to criminally investigate or prosecute any alcohol or drug abuse patient.[facility] HospitalIn the event this information is protected by the Federal Confidentiality of Alcohol and Drug Abuse Patient Records regulations: The Federal rules restrict any use of the information to criminally investigate or prosecute any alcohol or drug abuse patient.[facility]In the event this information is protected by the Federal Confidentiality of Alcohol and Drug Abuse Patient Records regulations: The Federal rules restrict any use of the information to criminally investigate or prosecute any alcohol or drug abuse patient.[facility] HospitalIn the event this information is protected by the Federal Confidentiality of Alcohol and Drug Abuse Patient Records regulations: The Federal rules restrict any use of the information to criminally investigate or prosecute any alcohol or drug abuse patient.[facility] HospitalIn the event this information is protected by the Federal Confidentiality of Alcohol and Drug Abuse Patient Records regulations: The Federal rules restrict any use of the information to criminally investigate or prosecute any alcohol or drug abuse patient.[facility] HospitalIn the event this information is protected by the Federal Confidentiality of Alcohol and Drug Abuse Patient Records regulations: The Federal rules restrict any use of the information to criminally investigate or prosecute any alcohol or drug abuse patient.[facility] HospitalIn the event this information is protected by the Federal Confidentiality of Alcohol and Drug Abuse Patient Records regulations: The Federal rules restrict any use of the information to criminally investigate or prosecute any alcohol or drug abuse patient.[facility] HospitalIn the event this information is protected by the Federal Confidentiality of Alcohol and Drug Abuse Patient Records regulations: The Federal rules restrict any use of the information to criminally investigate or prosecute any alcohol or drug abuse patient.[facility] HospitalIn the event this information is protected by the Federal Confidentiality of Alcohol and Drug Abuse Patient Records regulations: The Federal rules restrict any use of the information to criminally investigate or prosecute any alcohol or drug abuse patient.[facility] HospitalIn the event this information is protected by the Federal Confidentiality of Alcohol and Drug Abuse Patient Records regulations: The Federal rules restrict any use of the information to criminally investigate or prosecute any alcohol or drug abuse patient.[facility] HospitalIn the event this information is protected by the Federal Confidentiality of Alcohol and Drug Abuse Patient Records regulations: The Federal rules restrict any use of the information to criminally investigate or prosecute any alcohol or drug abuse patient.[facility] HospitalIn the event this information is protected by the Federal Confidentiality of Alcohol and Drug Abuse Patient Records regulations: The Federal rules restrict any use of the information to criminally investigate or prosecute any alcohol or drug abuse patient.[facility] HospitalIn the event this information is protected by the Federal Confidentiality of Alcohol and Drug Abuse Patient Records regulations: The Federal rules restrict any use of the information to criminally investigate or prosecute any alcohol or drug abuse patient.[facility] Reason for Visit (unrecogniz ed section [...] Chronic nausea Procedures CONSULT TO GASTROENTEROLOGY OFFICE/OUTPATIENT [facility] 60-74 MINUTES Pilar Magdaleno APRN.[facility] [address] [place] [address] Referral ID Status Reason Start Date Expiration Date V isits Requested Visits Authorized [id number] Closed PCP Requested Referral 02/23/2023 02/23/2024 1 [...] Active Dr. Andres Matias DPM Attending Provider, [facility] Provider Active Team Status: Inactive Member [...] Dr. Lexus Villatoro MD Attending Provider Active Retail Representative Relationship Specialty Start Date End Date Amy Solorzano, MARIA G [address] [place] [address] PCP - General Family Medicine 11/17/22 Team Status: Active Member Role Status Dates Dr. Esther Cooney MD Family Provider Active [facility] Primary Care Provider A ctive Team Status: Inactive Member Role Status Dates Dr. Sophy Gibbons Primary Care Provider Active Dr. Tim Vidal DO Attending Provider, Emergency P tala Active Team Status: Active Member Role Status Dates [facility] Primary Care Provider A ctive Amy Solorzano JOB LITHOGRAPHER, JOB LITHOGRAPHER-C Attending Provider, [facility] Active Team Status: Inactive Member Role Status Dates [facility] Primary Care Provider A ctive Dr. Poli Barfield DO Emergency Provider Active Team Status: Inactive Member Role Status Dates [facility] Primary Care Provider A ctive Dr. Deann Guerrero MD Emergency Provider Active Team Status: Inactive Member Role Status Dates [facility] Primary Care Provider A ctive Dr. Perico Norman DO Emergency Provider Active Team Status: Inactive Member Role Status Dates [facility] Primary Care Provider A ctive Dr. Fabricio Guevara MD Emergency Provider Active Team Status: Active Member Role Status Dates [facility] Primary Care Provider A ctive Dr. Willie Dhillon MD Emergency Provider Active Dr. Lexus Villatoro MD Admit Provider, At tending Provider, Other Provider Active Team Status: Inactive Member Role Status Dates [facility] Primary Care Provider A ctive Dr. Willie Dhillon MD Emergency Provider Active Dr. Lexus Villatoro MD Admit Provider, Attending Provid er Active Team Status: Inactive Member Role Status Dates [facility] Primary Care Provider A ctive Dr. Poli Barfield DO Attending Provider, Emergency Provide r Active Team Status: Inactive Member Role Status Dates [facility] Primary Care Provider A ctive Dr. Deann Guerrero MD Attending Provider, Emergency Provider Active Team Status: Inactive Member Role Status Dates [facility] Primary Care Provider A ctive Amy Solorzano JOB LITHOGRAPHER, JOB LITHOGRAPHER-C Attending Provider, Referrin g Provider Active Team Status: Inactive Member Role Status Dates [facility] Primary Care Provider A ctive Dr. Perico Norman DO Attending Provider, Emergency Pr ovider Active Team Status: Inactive Member Role Status Dates [facility] Primary Care Provider A ctive Dr. Fabricio Guevara MD Attending Provider, Emergency Pro vider Active Retail Representative Relationship Specialty Start Date End Date Amy Solorzano [address] [place] [id number] PCP - General 01/24/23 Retail Representative Relationship Specialty Start Date End Date Amy Solorzano, JOB LITHOGRAPHER [address] [place] [address] PCP - General Family Medicine 11/17/22 Team Status: Inactive Member Role Status Dates [facility] Primary Care Provider A ctive Dr. Javy Doss DO Emergency Provider Active Retail Representative Relationship Specialty Start Date End Date Amy Solorzano, JOB LITHOGRAPHER [address] [place] [address] PCP - General Family Medicine 11/17/22 Team Status: Inactive Member Role Status Dates [facility] Primary Care Provider A ctive Dr. Javy Doss , DO Attending Provider, Emergency Pro vider Active Team Status: Inactive Member Role Status Dates [facility] Primary Care Provider A ctive Dr. Tim Vidal , DO Emergency Provider Active Retail Representative Relationship Specialty Start Date End Date Amy Solrozano, JOB LITHOGRAPHER [address] [place] [address] PCP - General Family Medicine 11/17/22 Retail Representative Relationship Specialty Start Date End Date Amy Solorzano NP [address] [place] [address] PCP - General Family Medicine 11/17/22 Team Status: Inactive Member Role Status Dates [facility] Primary Care Provider A ctive Dr. Tim Vidal , DO Attending Provider, Emergency P rovider Active Team Status: Inactive Member Role Status Dates [facility] Primary Care Provider A ctive Dr. Rickey Shepard , DO Emergency Provider Active Retail Representative Relationship Specialty Start Date End Date Amy Solorzano JOB LITHOGRAPHER [address] [place] [address] PCP - General Family Medicine 11/17/22 Retail Representative Relationship Specialty Start Date End Date Amy Solorzano NP [address] [place] [address] PCP - General Family Medicine 11/17/22 Retail Representative Relationship Specialty Start Date End Date Amy Solorzano NP [address] [place] [address] PCP - General Family Medicine 11/17/22 Retail Representative Relationship Specialty Start Date End Date Amy Solorzano NP [address] [place] [address] PCP - General Family Medicine 11/17/22 Team [...] Team Status: Inactive Member Role Status Dates [facility] Primary Care Provider A ctive Dr. Rickey [...] Dr. Alex Christiansen DO Emergency Provider Active Retail Representative Relationship Specialty Start Date End Date Rashad AmyMARIA G [address] [place] [address] PCP - General Family Medicine [...] Dr. Tesfaye Mitchell DO Emergency Provider Active [facility] Primary Care Provider A ctive Team Status: Inactive Member Role Status Dates Dr. Abdirizak Forrest DPM Attending Provider, Referring Provider Active [facility] Primary Care Provider A ctive Team Status: Inactive Member Role Status Dates Dr. Sophy Gibbons Primary Care Provider Active Drew Hinson MD Attending Provider, Emergency Provid er Active Team Status: Inactive Member Role Status Dates Dr. Tesfaye Mitchell DO Attending Provider, Emergency P rovider Active [facility] Primary Care Provider A ctive Team Status: Inactive Member Role Status Dates [facility] Primary Care Provider A ctive Dr. Willie Dhillon MD Attending Provider, Emergency Provider Active Team Status: Inactive Member Role Status Dates [facility] Primary Care Provider A ctive Dr. Abdirizak Forrest DPM Attending Provider, Referring Provider Active Retail Representative Relationship Specialty Start Date End Date Amy Solorzano JOB LITHOGRAPHER [address] [place] [address] PCP - General Family Medicine 11/17/22 Retail Representative Relationship Specialty Start Date End Date Amy Solorzano JOB LITHOGRAPHER [address] [facility] [place] [address] PCP - General Family Medicine 11/17/22 Retail Representative Relationship Specialty Start Date End Date Amy Solorzano JOB LITHOGRAPHER [address] [facility] [place] [address] PCP - General Family Medicine 11/17/22 Retail Representative Relationship Specialty Start Date End Date Amy Solorzano JOB LITHOGRAPHER [address] [place] [address] PCP - General Family Medicine 11/17/22 Team Status: Active Member Role Status Dates Amykeiko Solorzano VSC, JOB LITHOGRAPHER-C Primary Care Provider Activ e Team Status: Inactive Member Role Status Dates Amy Rashad VSC, JOB LITHOGRAPHER-C Primary Care Provider Activ e Start: October 17, 2024 End: October 17, 2024 Amy EDWARDSC, JOB LITHOGRAPHER-C Attending Provider Active Start: October 17, 2024 End: October 17, 2024 Team Status: Inactive Member Role Status Dates Amy Solorzano VSC, JOB LITHOGRAPHER-C Primary Care Provider Activ e Start: October 25, 2024 End: October 25, 2024 Dr. Abdirizak Forrest DPM Attending Provider Active Start: October 25, 2024 End: October 25, 2024 Dr. Abdirizak Forrest DPM Referring Provider Active Start: October 25, 2024 End: October 25, 2024 Team Status: Active Member Role Status Dates mAy Solorzano VSC, JOB LITHOGRAPHER-C Primary Care Provider Activ e Start: November 25, 2024 Drew Hinson MD Emergency Provider Active Star t: November 25, 2024 Dr. Brenda Rao MD Admit Provider Active St art: November 25, 2024 Dr. Brenda Rao MD Attending Provider Active Start: November 25, 2024 Team Status: Inactive Member Role Status Dates Amy BARAHONA, JOB LITHOGRAPHER-C Primary Care Provider Activ e Start: November [...] Active Member Role Status Dates Amy BARAHONA, JOB LITHOGRAPHER-C Primary Care Provider Activ e Start: November [...] Active Member Role Status Dates Amy BARAHONA, JOB LITHOGRAPHER-C Primary Care Provider Activ e Start: November [...] Active Member Role Status Dates Amy BARAHONA, JOB LITHOGRAPHER-C Primary Care Provider Activ e Start: November [...] Active Member Role Status Dates Amykeiko BARAHONA, JOB LITHOGRAPHER-C Primary Care Provider Activ e Start: November [...] Active Member Role Status Dates Amy BARAHONA, JOB LITHOGRAPHER-C Primary Care Provider Activ e Start: November [...] Active Member Role Status Dates Amy BARAHONA, JOB LITHOGRAPHER-C Primary Care Provider Activ e Start: November [...] Active Member Role Status Dates Amy BARAHONA, JOB LITHOGRAPHER-C Primary Care Provider Activ e Start: November [...] Active Member Role Status Dates Amy BARAHONA, JOB LITHOGRAPHER-C Primary Care Provider Activ e Start: November [...] Inactive Member Role Status Dates Amy BARAHONA, JOB LITHOGRAPHER-C Primary Care Provider Activ e Start: December 13, 2024 End: December 13, 2024 Amy BARAHONA, JOB LITHOGRAPHER-C Referring Provider Active Start: December 13, 2024 End: December 13, 2024 MIGUEL A South Attending Provider Active Start: December 13, 2024 End: December 13, 2024 Team Status: Inactive Member Role Status Dates Amy EDWARDSC, JOB LITHOGRAPHER-C Primary Care Provider Activ e Start: December 13, 2024 End: December 13, 2024 MIGUEL A South Attending Provider Active Start: December 13, 2024 End: December 13, 2024 MIGUEL A South Referring Provider Active Start: December 13, 2024 End: December 13, 2024 Team Status: Inactive Member Role Status Dates Amy EDWARDSC, JOB LITHOGRAPHER-C Primary Care Provider Activ e Start: December 25, 2024 End: December 25, 2024 MIGUEL A South Attending Provider Active Start: December 25, 2024 End: December 25, 2024 Kalee Peter Referring Provider Active Start: December 25, 2024 End: December 25, 2024 Team Status: Active Member Role Status Dates Amy EDWARDSC, JOB LITHOGRAPHER-C Primary Care Provider Activ e Start: December 30, 2024 Dr. Poli Barfield DO Emergency Provider Active Start : December 30, 2024 Dr. David Bain MD Admit Provider Active Sta rt: December 30, 2024 Dr. David Bain MD Attending Provider Active Start: December 30, 2024 Team Status: Inactive Member Role Status Dates Amy EDWARDSC, JOB LITHOGRAPHER-C Primary Care Provider Activ e Start: December [...] Active Member Role Status Dates Amy EDWARDSC, JOB LITHOGRAPHER-C Primary Care Provider Activ e Start: December [...] section and content) DATE CREATED AUTHOR 01/24/2023 [facility] DATE CREATED AUTHOR AUTHOR'S ORGANIZ ATION 02/18/2023 [facility] DATE CREATED AUTHOR AUTHOR'S ORGANIZ ATION 04/19/2023 [facility] ([place]) DATE CREATED AUTHOR AUTHOR'S ORGANIZ ATION 02/02/[address] [facility] DATE CREATED AUTHOR AUTHOR'S ORGANIZ ATION 07/05/2024 [facility] DATE CREATED AUTHOR AUTHOR'S ORGANIZ ATION 12/28/[address] [facility] Scheduled Active and Recently Administ ered [...] BE BASED ON THE PRIMARY CLINICAL RECORDS. [employer] provides no warranty or guarantee of the accuracy or completeness of information in this document.
[2024-12-31 23:38] LABS: Internal QC Validated? YES +Cl - CLEAR BKGD; Pregnancy, Urine Negative Negative
[2024-12-31 23:39] LABS: Bedside Glucose 173 mg/dL (74-106)
[2024-12-31 23:46] LABS: Magnesium 1.5 mg/dL (1.5-2.2); Thyroid Stim Hormone (TSH) 0.649 uIU/mL (0.300-4.200)
[2025-01-01] VITALS (16 sets, daily range): BP systolic 103–160; BP diastolic 66–108; PULSE 82–100; RESP 9–22; TEMP 36.7; O2SAT 90–100; BMI 38.9
[2025-01-01] MEDS: Ondansetron 4 MG/2 ML Vial IV ×2 (00:14→07:59)
[2025-01-01] MEDS: Pantoprazole Sodium 40 MG in 0.9% Normal Saline (100mL MB+) 100 ML 330 MG IV ×2 (00:14→08:39)
[2025-01-01] MEDS: Scopolamine 1mg/72hr Patch 1 PATCH TD (00:14)
[2025-01-01] MEDS: 0.9% Normal Saline (250mL Bag) 250 ML 15 ML IV (00:14)
[2025-01-01] MEDS: 0.9% Saline Lock 10 ML Syringe IV ×4 (00:16→06:09)
[2025-01-01 00:19] LABS: Anion Gap 13 (5-15); BUN 6 mg/dL (4-19); BUN/Creat Ratio 7.2 RATIO (10-20); Calcium,Total 8.2 mg/dL (7.6-11.0); Carbon Dioxide 19.1 mmol/L (21.0-32.0); Chloride 108 mmol/L (98-108); Creatinine, Serum 0.84 mg/dL (0.70-1.20); EST Glomerular Filtration Rate 94 (>60); Estimated Creatinine Clearance 120.61 ml/min (50-250); Glucose 189 mg/dL (70-99); Potassium 3.7 mmol/L (3.3-5.1); Sodium Level 139 mmol/L (133-145)
[2025-01-01 00:19] LABS: Bedside Glucose 179 mg/dL (74-106)
[2025-01-01] MEDS: Morphine 2 MG/ML Syringe IV (00:27)
[2025-01-01 01:26] LABS: Bedside Glucose 144 mg/dL (74-106)
[2025-01-01 02:25] LABS: Bedside Glucose 134 mg/dL (74-106)
[2025-01-01] MEDS: Lorazepam 2 MG/ML WCH Syringe 0.5 MG IV (03:14)
[2025-01-01 03:29] LABS: Bedside Glucose 112 mg/dL (74-106)
[2025-01-01] MEDS: Dextrose 10%-Water 250 ML 999 ML IV (04:06)
[2025-01-01 04:22] LABS: Bedside Glucose 62 mg/dL (74-106)
[2025-01-01 04:26] LABS: Anion Gap 11 (5-15); BUN 5 mg/dL (4-19); BUN/Creat Ratio 6.5 RATIO (10-20); Calcium,Total 8.3 mg/dL (7.6-11.0); Carbon Dioxide 20.4 mmol/L (21.0-32.0); Chloride 109 mmol/L (98-108); Creatinine, Serum 0.78 mg/dL (0.70-1.20); EST Glomerular Filtration Rate 103 (>60); Estimated Creatinine Clearance 129.95 ml/min (50-250); Glucose 71 mg/dL (70-99); Potassium 3.4 mmol/L (3.3-5.1); Sodium Level 141 mmol/L (133-145)
[2025-01-01 04:54] LABS: Bedside Glucose 98 mg/dL (74-106)
[2025-01-01] MEDS: KCL 20MEQ in D5.45NS 20 MEQ/1,000 ML IV.SOLN. 150 MEQ IV (06:09)
[2025-01-01 06:11] LABS: Blood Gas Specimen Type VEN; O2 Delivery Device Not entered; SITE Not entered; VBG BASE EXCESS -3 mmol/L (-1.0-3.5); VBG Bicarbonate 22 mmol/L (22-26); VBG PO2 53 mmHg (25-40); VBG SO2 87 % (50-70); VBG TCO2 23 mmol/L (23-33); VBG pCO2 35.7 mmHg (41-51)
[2025-01-01 06:44] LABS: Bedside Glucose 110 mg/dL (74-106)
[2025-01-01 06:44] LABS: Bedside Glucose 104 mg/dL (74-106)
[2025-01-01] MEDS: Enoxaparin 40 MG/0.4 ML Syringe SC (07:58)
[2025-01-01 08:14] LABS: Bedside Glucose 119 mg/dL (74-106)
[2025-01-01] MEDS: proMETHazine 25 MG/ML Syringe 12.5 MG IM (08:40)
[2025-01-01 08:42] LABS: Anion Gap 9 (5-15); BUN 5 mg/dL (4-19); BUN/Creat Ratio 6.1 RATIO (10-20); Calcium,Total 7.9 mg/dL (7.6-11.0); Carbon Dioxide 20.1 mmol/L (21.0-32.0); Chloride 111 mmol/L (98-108); Creatinine, Serum 0.76 mg/dL (0.70-1.20); EST Glomerular Filtration Rate 107 (>60); Estimated Creatinine Clearance 133.37 ml/min (50-250); Glucose 127 mg/dL (70-99); Potassium 3.9 mmol/L (3.3-5.1); Sodium Level 140 mmol/L (133-145)
[2025-01-01] MEDS: Nalbuphine 10 MG/ML Ampul IV (10:48)
--- NOTE | 2025-01-01 11:30 | CASEMGMT ---
RYNE LUJAN Readmission Chart Review Index Admission: 12/30/24-12/31/24. Dx: DKA Current:12/31/24. Dx: DKA, N/V, Medical Noncompliance From the index admission, the pt left the hospital AMA and went home. Per the H&P, after the pt left the hospital she went home and went to sleep and then woke up with intractable nausea and vomiting. She also admits to severe cramping abdominal pain similar to her previous bout of DKA. She then checked her blood sugar and noted it had been continuing to climb despite being unable to eat. Hence, she finally decided to come back in for further evaluation and treatment. RYNE LUJAN to the pt room at this time. Pt is A&Ox4 and recently got back in bed from ambulating the halls independently. Pt states that she lives with her SO/ BF. Pt states that she was not caring for her DM as well as she should have been. Pt is aware of the importance of caring for her DM accordingly. Pt states that she is educated on this but needs to do a better job. Pt was given Dr. Peña's (local Carding Supervisor) information and was encouraged to get established for OP follow-up care for her DM. Pt stated understanding. Pt states that she has a CBGM and a regular glucometer as a backup. Pt states that she has pen needles for insulin shots. Pt states that she has all of the equipment and supplies that she needs e/f for her test strip supply is running low. Pt reports that she has refills available at [facility] and that all she needs to do is go get them. However, pt states that she does not currently have any form of transportation as her car is not currently functioning. Pt states that when she left AMA she walked home. This RYNE LUJAN educated the pt about the [facility] and states that she would like to use the van at the time of DC. Pt states that she would be able to get in and out of the van independently. Pt denies further homegoing needs and states that she feels safe returning home with her SO at the time of DC.
[2025-01-01 11:51] LABS: Bedside Glucose 113 mg/dL (74-106)
--- NOTE | 2025-01-01 12:59 | PCM.DC ---
Discharge Instructions Diet Discharge Diet: 1800 Calorie Control Diet DC O2, CPAP, BIPAP needs Home O2 Discharge instructions: No Dressing / Incision Discharge Activity: Return to Normal Activity Weight Bearing Status: Full weight bearing Follow Up Care Test Results: Test results from this visit will be discussed in further detail at your follow-up appointment, if applicable. Discharge Plan Admission Admit Date/Time: 12/31/24 22:59 Primary Reason for Your Visit: Uncontrolled nausea and vomiting Attending Provider: Pranay Coutler Primary Care Provider: Amy Dasilva Consulting Providers: Manuel Grant Discharge Orders/Prescriptions Prescriptions: New promethazine 25 mg tablet 25 mg PO Q6H PRN (Reason: nausea and vomiting) Qty: 20 0RF Rx Instructions: 1 or 2 tabs every 6 hours as needed for nausea and vomiting Continued Linzess 145 mcg capsule 145 mcg PO QAM Qty: 30 2RF insulin glargine [Lantus Solostar U-100 Insulin] 100 unit/mL (3 mL) insulin pen 20 unit SUBCUT BID Patient Comments: PT HAS BEEN TAKING 35-40 UNITS TWICE DAILY albuterol sulfate 90 mcg/actuation HFA aerosol inhaler 2 puff INHALATION Q4H PRN (Reason: shortness of breath or wheezing) Trulicity 4.5 mg/0.5 mL pen injector 4.5 mg subcut SA Referrals / Follow Up: Amy Dasilva, RECREATION FACILITIES SUPERVISOR-C [Primary Care Provider] - Within 2 Weeks Disposition Disposition (needs filled in before D/C Order can be placed): Home, Self Care
--- NOTE | 2025-01-01 13:06 | DS.PCM_ITS ---
Providers Date of Admission: 12/31/24 Date of Discharge: 01/01/25 Primary Care Physician: Amy Dasilva Sara, GROUND SUPPORT EQUIPMENT MECHANIC-C Reason For Visit: DKA, CYCLICAL N/V AND MEDICAL NONCOMPLIANCE Diagnosis Discharge Diagnosis (1) Diabetic ketoacidosis: Status: Acute Code(s): E11.10 - Type 2 diabetes mellitus with ketoacidosis without coma Qualifiers: Diabetes mellitus complication detail: without coma Diabetes mellitus type: type 2 Qualified Code(s): E11.10 - Type 2 diabetes mellitus with ketoacidosis without coma (2) Cyclic vomiting syndrome: Status: Acute Code(s): R11.15 - Cyclical vomiting syndrome unrelated to migraine (3) Cannabis abuse: Status: Acute Code(s): F12.10 - Cannabis abuse, uncomplicated (4) Medical non-compliance: Status: Acute Code(s): Z91.199 - Patient's noncompliance with other medical treatment and regimen due to unspecified reason (5) Depression with anxiety: Status: Acute Code(s): F41.8 - Other specified anxiety disorders (6) Borderline personality disorder: Status: Acute Code(s): F60.3 - Borderline personality disorder (7) Obesity (BMI 30-39.9): Status: Acute Code(s): E66.9 - Obesity, unspecified (8) Type 2 diabetes mellitus with peripheral neuropathy: Status: Acute Code(s): E11.42 - Type 2 diabetes mellitus with diabetic polyneuropathy Plan 1. Uncontrolled nausea and vomiting #2 uncontrolled type 2 diabetes #3 noncompliance with medical care Diabetic ketoacidosis was ruled out Medications at Discharge Home Medications insulin glargine 100 unit/mL (3 mL) subcutaneous pen (Lantus Solostar U-100 Insulin) 20 unit subcut BID diabetes 08/12/22 albuterol sulfate 90 mcg/actuation aerosol inhaler 2 puff inhalation Q4H PRN shortness of breath or wheezing 11/25/24 dulaglutide 4.5 mg/0.5 mL subcutaneous pen injector (Trulicity) 4.5 mg subcut SA diabetes 11/25/24 linaclotide 145 mcg capsule (Linzess) 145 mcg PO QAM IBS #30 caps 12/13/24 promethazine 25 mg tablet 25 mg PO Q6H PRN nausea and vomiting #25 tabs 01/01/25 Hospital Course Operations None Procedures None Summary of Care Provided Minutes Spent on Discharge: 30 Hospital Course: This 34-year-old white female was seen in the emergency room at [facility] with complaints of uncontrolled nausea and vomiting and abdominal pain. She had left the hospital AGAINST MEDICAL ADVICE several hours earlier after being hospitalized for treatment of diabetic ketoacidosis. Labs obtained showed the patient's anion gap to be normal, glucose was elevated at 160, and beta hydroxy butyric acid was elevated at 0.6. Patient was felt to be in DKA, this examiner did not feel the patient met criteria for DKA. Patient was admitted to ICU, and insulin drip was written for the patient but never started, patient's repeat blood sugars trended upward slightly and then downward. Patient's anion gap was never abnormal. On 01/01/2025, patient had an episode of nausea and vomiting and was given IM Phenergan in addition to Zofran, she was also given IV Nubain for abdominal pain. Patient's symptoms improved. On 01/01/2025, patient was seen and examined: On examination she appeared in good health and spirits, she does not appear to be in any distress. Vital signs as documented. Skin warm and dry and without overt rashes. Neck without JVD, thyroid appears normal, trachea is midline, neck is supple. Lungs clear, normal air movement was noted. Heart exam notable for regular rhythm, normal sounds and absence of murmurs, rubs or gallops. Abdomen unremarkable and without evidence of organomegaly, masses, or abdominal aortic enlargement, bowel sounds are present in all 4 quadrants, no abdominal tenderness was noted. Extremities nonedematous, no cyanosis was noted, no clubbing was noted. Neuro: Cranial nerves II through XII are grossly intact, no focal motor deficits were noted, sensation to light touch and pinprick is intact, motor exam 5/5 throughout. Psych: Patient is alert and oriented x3, she does not appear anxious or depressed, she does not appear agitated. Patient was discharged home in stable condition on 01/01/2025 Weight / BMI Weight Weight: 109.8 kg Body Mass Index (BMI) 38.9 ABG / Lab / Microbiology Data 12/31/24 19:30 01/01/25 07:45 Laboratory: Laboratory Results - last 24 hr 12/31/24 18:39: POC Glucose 140 H 12/31/24 19:30: WBC 9.9, RBC 4.53, Hgb 12.4, Hct 38.0, MCV 83.9, MCH 27.4, MCHC 32.6, RDW Std Deviation 43.4, RDW Coeff of John 14.3, Plt Count 400, MPV 9.5, Immature Gran % (Auto) 0.700, Neut % (Auto) 64.4, Lymph % (Auto) 27.7, [place] % (Auto) 6.4, Eos % (Auto) 0.3, Baso % (Auto) 0.5, Absolute Neuts (auto) 6.4, Absolute Lymphs (auto) 2.74, Nucleated RBC % 0, Sodium 140, Potassium 3.8, Chloride 105, Carbon Dioxide 20.4 L, Anion Gap 15, BUN 7, Creatinine 0.99, Estim Creat Clear Calc 101.44, Est GFR (MDRD) Non-Af 77, BUN/Creatinine Ratio 7.1 L, G lucose 160 H, Calcium 9.1, b-Hydroxybutyric mmol/L 0.6 H, Urine Color Yellow, Urine Clarity Cloudy, Urine pH 6.0, Ur Specific [place] 1.020, Urine Protein 30 H, Urine Glucose (UA) Normal, Urine Ketones 5 H, Urine Occult Blood 25 H, Urine Nitrite Negative, Urine Bilirubin Negative, Urine Urobilinogen Normal, Ur Leukocyte Esterase 100 H, Urine RBC 0 SEEN, Urine WBC 0-5 SEEN, Ur Squamous Epith Cells 0-5 SEEN, Urine Bacteria 3+, Urine Mucus 0 SEEN, Urine Test Negative 12/31/24 19:43: POC Glucose 152 H 12/31/24 21:20: Sodium 139, Potassium 3.7, Chloride 108, Carbon Dioxide 18.2 L, Anion Gap 13, BUN 7, Creatinine 0.85, Estim Creat Clear Calc 118.14, Est GFR (MDRD) Non-Af 93, BUN/Creatinine Ratio 8.0 L, Glucose 177 H, Calcium 8.2 12/31/24 21:35: POC Glucose 169 H 12/31/24 22:38: Magnesium 1.5, b-Hydroxybutyric mmol/L 0.5 H, TSH 0.649 12/31/24 23:09: POC Glucose 173 H 12/31/24 23:58: Sodium 139, Potassium 3.7, Chloride 108, Carbon Dioxide 19.1 L, Anion Gap 13, BUN 6, Creatinine 0.84, Estim Creat Clear Calc 120.61, Est GFR (MDRD) Non-Af 94, BUN/Creatinine Ratio 7.2 L, Glucose 189 H, Calcium 8.2 01/01/25 00:02: POC Glucose 179 H 01/01/25 01:07: POC Glucose 144 H 01/01/25 02:07: POC Glucose 134 H 01/01/25 03:01: POC Glucose 112 H 01/01/25 03:59: Sodium 141, Potassium 3.4, Chloride 109 H, Carbon Dioxide 20.4 L , Anion Gap 11, BUN 5, Creatinine 0.78, Estim Creat Clear Calc 129.95, Est GFR (MDRD) Non-Af 103, BUN/Creatinine Ratio 6.5 L, Glucose 71, Calcium 8.3 01/01/25 04:00: POC Glucose 62 L 01/01/25 04:36: POC Glucose 98 01/01/25 05:00: b-Hydroxybutyric mmol/L 0.0 01/01/25 05:31: POC Glucose 104 01/01/25 06:26: POC Glucose 110 H 01/01/25 07:45: Sodium 140, Potassium 3.9, Chloride 111 H, Carbon Dioxide 20.1 L , Anion Gap 9, BUN 5, Creatinine 0.76, Estim Creat Clear Calc 133.37, Est GFR (MDRD) Non-Af 107, BUN/Creatinine Ratio 6.1 L, Glucose 127 H, Calcium 7.9, POC Glucose 119 H 01/01/25 11:34: POC Glucose 113 H ABG: ABG 12/31/24 01/01/25 19:36 06:07 Specimen Type ESTRELLA ESTRELLA Sample Site Not entered Not entered O2 % 21.0 VBG pH 7.49 H 7.40 VBG pO2 22 L 53 H VBG HCO3 24 22 VBG Total CO2 25 23 VBG O2 Sat (Calc) 43 L 87 H VBG Base Excess 0 -3 L POC Mix VBG pCO2 Pt Tmp 30.7 L 35.7 L O2 Delivery Device Room Air Not entered D/C Instructions Discharge Diet: 1800 Calorie Control Diet Weight Bearing Status: Full weight bearing DC O2, CPAP, BIPAP Needs Home O2 Discharge instructions: No Meaningful Use Info Meaningful Use Meaningful Use Diagnoses (Choose all that apply): None applicable Ischemic Stroke Statin Dosing Therapy Reference: STATIN DOSE THERAPY REFERENCE: * Patients > 75 years receive moderate or high dose statin therapy. * Patients 75 years or YOUNGER should receive HIGH intensity statin dose unless contraindicated. You will be required to document reason for non-treatment if statin daily dose does not meet guidelines. HIGH DOSE STATIN THERAPY DAILY Atorvastatin > than or = to 40 mg Rosuvastatin > than or = to 20 mg Amlodipine + Atorvastatin > than or = to 2.5/40 mg Ezetimibe + Simvastatin 10/80 mg Simvastatin 80mg Discharge Plan Admission Admit Date/Time: 12/31/24 22:59 Primary Reason for Your Visit: Uncontrolled nausea and vomiting Attending Provider: Pranay Coulter Primary Care Provider: Amy Dasilva Consulting Providers: Manuel Grant Discharge Orders/Prescriptions Prescriptions: New promethazine 25 mg tablet 25 mg PO Q6H PRN (Reason: nausea and vomiting) Qty: 25 0RF Rx Instructions: 1 or 2 every 6 hours as needed for nausea and vomiting Continued Linzess 145 mcg capsule 145 mcg PO QAM Qty: 30 2RF insulin glargine [Lantus Solostar U-100 Insulin] 100 unit/mL (3 mL) insulin pen 20 unit SUBCUT BID Patient Comments: PT HAS BEEN TAKING 35-40 UNITS TWICE DAILY albuterol sulfate 90 mcg/actuation HFA aerosol inhaler 2 puff INHALATION Q4H PRN (Reason: shortness of breath or wheezing) Trulicity 4.5 mg/0.5 mL pen injector 4.5 mg subcut SA Referrals / Follow Up: Amy Dasilva, GROUND SUPPORT EQUIPMENT MECHANIC-C [Primary Care Provider] - Within 2 Weeks Disposition Disposition (needs filled in before D/C Order can be placed): Home, Self Care Charges/Coding Visit Charges Inpatient E&M: 96565 Disch Hosp
--- NOTE | 2025-01-01 13:20 | CASEMGMT ---
Pt has an order for DC placed. laboratory secretary notified and setting up transportation for the pt now. No further needs identified.
== END 2025-01-01 13:39 | disposition home or self-care (01) | DRG 420 ==
LOC: ED 23:07 → ICU 23:18
PROVIDERS: Admitting Provider Internal Medicine; Emergency Provider Emergency Medicine; PCP Nurse Practitioner Family; Visit Provider Internal Medicine
DX: E11.10 Type 2 diabetes mellitus with ketoacidosis without coma (principal); E11.65 Type 2 diabetes mellitus with hyperglycemia; J45.20 Mild intermittent asthma, uncomplicated; F12.10 Cannabis abuse, uncomplicated; Z68.38 Body mass index [BMI] 38.0-38.9, adult; F60.3 Borderline personality disorder; E11.42 Type 2 diabetes mellitus with diabetic polyneuropathy; K58.9 Irritable bowel syndrome, unspecified; Z79.4 Long term (current) use of insulin; F41.8 Other specified anxiety disorders; K21.9 Gastro-esophageal reflux disease without esophagitis; R11.15 Cyclical vomiting syndrome unrelated to migraine; K58.1 Irritable bowel syndrome with constipation; Z87.891 Personal history of nicotine dependence; Z79.85 Long-term (current) use of injectable non-insulin antidiabetic drugs; E66.9 Obesity, unspecified; Z83.3 Family history of diabetes mellitus; G47.00 Insomnia, unspecified; Z79.899 Other long term (current) drug therapy; Z91.199 Patient's noncompliance with other medical treatment and regimen due to unspecified reason
CPT/HCPCS: 80048; 81001; 81025; 82010; 82803; 82962; 83735; 84443; 85025; 93005; 99284; A4216; J2405

== ENCOUNTER 2025-01-02 06:56 | Emergency (ER) | payer MEDICAID, SELFPAY ==
[2025-01-02 06:57] VITALS: BP 184/160; PULSE 89; RESP 22; TEMP 36.8; O2SAT 100; BMI 38.0
[2025-01-02 06:59] VITALS: BP 173/112
--- NOTE | 2025-01-02 07:08 | EX.ED.DYSGE1 ---
HPI History of Present Illness Chief Complaint: Nausea/Vomiting Informant: patient Narrative Narrative: Patient presents for recurrent nausea and vomiting starting last night. Discharged yesterday from the hospital states was feeling somewhat better. She went home slept woke up vomited again throughout the night. No hematemesis. History of cyclic vomiting. She has been avoiding marijuana. Of note was hospitalized by myself. She was admitted for DKA. She states in the hospital yesterday she ate grapes. She did not eat anything yesterday evening. Abdominal cramping secondary to vomiting. No diarrhea. No fevers. Prior similar symptoms: Yes PFSH PFSH Medical History Borderline personality disorder Depression with anxiety Obesity (BMI 30-39.9) Medical non-compliance Cyclic vomiting syndrome Diabetic ketoacidosis Cannabis abuse Type 2 diabetes mellitus with peripheral neuropathy Diabetes GERD (gastroesophageal reflux disease) Wears glasses History of MRSA infection Borderline personality disorder Alcohol use Insulin dependent diabetes mellitus Dietary restriction Heartburn Smoker Shortness of breath on exertion Leg cramps Neuropathy, diabetic Elevated serum creatinine Failure of outpatient treatment Nausea and vomiting Diabetes mellitus with diabetic polyneuropathy Type 2 diabetes mellitus with foot ulcer Anxiety Depression Constipation Asthma Diabetes Home Medications ?Medication ?Instructions ?Recorded ?Last Taken ?Type insulin glargine 100 unit/mL (3 20 unit subcut BID diabetes 08/12/22 12/29/24 History mL) subcutaneous pen (Lantus Solostar U-100 Insulin) albuterol sulfate 90 mcg/actuation 2 puff inhalation Q4H PRN 11/25/24 Unknown History aerosol inhaler shortness of breath or wheezing dulaglutide 4.5 mg/0.5 mL 4.5 mg subcut SA diabetes 11/25/24 11/18/24 History subcutaneous pen injector (Trulicity) linaclotide 145 mcg capsule 145 mcg PO QAM IBS #30 caps 12/13/24 12/29/24 Rx (Linzess) promethazine 25 mg tablet 25 mg PO Q6H PRN nausea and 01/01/25 Unknown Rx vomiting #25 tabs hyoscyamine sulfate 0.125 mg 0.125 mg sublingual Q8H PRN 01/02/25 Unknown Rx sublingual tablet (Levsin/SL) abdominal discomfort #10 tabs ondansetron 4 mg disintegrating 4 mg PO Q8H PRN PRN Nausea #10 tabs 01/02/25 Unknown Rx tablet Allergy/AdvReac Type Severity Reaction Status Date / Time No Known Allergies Allergy Verified 12/31/24 18:33 Family History Other Bleeding disorder Cancer Diabetes Hypertension Surgical History Hx of foot surgery Hx of foot surgery Social History Smoking Status: Former smoker alcohol intake: never substance use type: does not use what type of physical activity do you participate in: none ROS ROS ED Constitutional Constitutional ED: Denies fever(s) Cardiovascular Cardiovascular: Denies chest pain Respiratory/Chest Respiratory/Chest: Denies cough Gastrointestinal Gastrointestinal: Reports abdominal pain, nausea and vomiting; Denies diarrhea Musculoskeletal Musculoskeletal: Denies none Integumentary Denies rash or wounds Neurologic Neurologic: Denies weakness EXAM Physical Exam Const Vital Signs: 01/02/25 06:57 01/02/25 06:59 01/02/25 07:46 Temperature 98.3 F Temperature Source Oral Pulse Rate 89 77 Respiratory Rate 22 H 16 Blood Pressure 184/160 H 173/112 H 148/93 H Blood Pressure Mean 168 132 111 Pulse Ox 100 100 Oxygen Delivery Method Room Air Room Air 01/02/25 08:39 01/02/25 09:40 01/02/25 10:43 Temperature 97.8 F Temperature Source Pulse Rate 85 80 85 Respiratory Rate 16 16 18 Blood Pressure 142/78 H 151/98 H 159/89 H Blood Pressure Mean 99 115 112 Pulse Ox 99 99 99 Oxygen Delivery Method Room Air Room Air Positive well nourished and well developed Constitutional Narrative: Nontoxic, tearful General Appearance ED: well developed HEENT Reports moist mucous membranes normocephalic and atraumatic Eyes General Eye ED: Yes normal appearance of both eyes Neck full ROM Chest Wall Chest: Negative for tenderness Resp normal respiratory effort and normal air movement Effort and Inspection: symmetric chest movement; Negative for respiratory distress Cardio regular rate, regular rhythm and no murmurs Peripheral Pulses: pulses 2+ throughout GI normal to inspection, nondistended, normoactive bowel sounds GI Narrative: Soft abdomen no guarding or rebound. Palpation: Negative for guarding or rebound tenderness present Extremity normal to inspection General Extremety ED: Negative for edema or tenderness General Extremity: Negative for edema Neuro oriented x3 and no sensory deficits noted Sensorium / Orientation: awake and alert Skin no rashes or lesions noted and no wounds MDM MDM MDM Narrative Medical decision making narrative: Interventions / MDM: Differential diagnosis: Cyclic vomiting, history of diabetes Diagnosis considered but do not suspect: Nonsurgical abdomen. My EKG interpretation: N/A Imaging independently reviewed and interpreted by myself: N/A External documents reviewed: N/A Test considered but not ordered:N/A ED course: Recurrent vomiting. IV established. DKA labs. 1 L of fluids. Fluke vomiting order set used. She seemed to have more response with the Benadryl and Thorazine given previously. Will also give IV Pepcid. Will reevaluate. 0830: Patient currently resting no vomiting since medications. Her labs white 11.2 her glucose 135 her anion gap slightly elevated 16 her beta hydroxybutyric elevated at 1.2. Additional liter of fluids ordered. I will discuss with hospitalist for admission further plan of care. 0840: I spoke with Dr. Espinoza, discussed patient's history. He reviewed admissions. He does not feel patient is in DKA. He is concerned more of starvation ketosis. She has her antiemetics at home. He understands she likely will return to the ED for recurrent symptoms. They did not feel admission is warranted at this time. We will finish your additional liter of fluids I will p.o. challenge for reevaluation. 1030: Patient intermittently was complaining of cramping Levsin ordered. Her additional liter of fluids were given. She is able to tolerate water. Discussed this with the patient and she is tolerating oral fluids, hospitalist team concerns for starvation ketosis and not diabetic ketoacidosis. I added Levsin to her prescription along additional Zofran. She did clam picker her Phenergan from yesterday. She has appointment with GI with gastric emptying test along with endoscopies upper and lower as an outpatient. She will continue to avoid marijuana. She was tearful with concerns of her recurrent symptoms. Discussed the importance of follow-up. Re-evaluation: stable Disposition discussed with patient/family/significant other: Patient Case discussed with consulting clinician: Hospitalist This note was generated with [employer] software. It may contain incorrect words, spelling, and punctuation that were not noted in checking the note before signing. Lab Data Attestation: I reviewed the patient's lab results. Labs: Laboratory Results - last 24 hr 01/02/25 01/02/25 07:11 07:30 WBC 11.2 H RBC 4.40 Hgb 12.2 Hct 36.1 L MCV 82.0 MCH 27.7 MCHC 33.8 RDW Std Deviation 41.6 RDW Coeff of John 14.3 Plt Count 403 MPV 9.4 Immature Gran % (Auto) 0.800 Neut % (Auto) 65.7 Lymph % (Auto) 26.2 [place] % (Auto) 6.9 Eos % (Auto) 0.1 Baso % (Auto) 0.3 Absolute Neuts (auto) 7.3 Absolute Lymphs (auto) 2.92 Nucleated RBC % 0 Sodium 139 Potassium 3.4 Chloride 104 Carbon Dioxide 18.1 L Anion Gap 16 H BUN 5 Creatinine 0.91 Estim Creat Clear Calc 109.85 Est GFR (MDRD) Non-Af 86 BUN/Creatinine Ratio 4.9 L Glucose 135 H Calcium 9.4 Total Bilirubin 0.51 AST 17 ALT 13 Alkaline Phosphatase 72 Total Protein 7.8 Albumin 4.0 Globulin 3.8 Albumin/Globulin Ratio 1.1 Lipase 27 b-Hydroxybutyric mmol/L 1.2 H POC Glucose 142 H Discharge Plan Triage Chief Complaint: Nausea/Vomiting ED Provider: Poli Barfield Dx/Rx/DC Orders Clinical Impression: Cyclical vomiting syndrome, History of diabetes mellitus Instructions: ED Cyclic Vomiting Syndrome Prescriptions: New hyoscyamine sulfate [Levsin/SL] 0.125 mg tablet, sublingual 0.125 mg sublingual Q8H PRN (Reason: abdominal discomfort) Qty: 10 0RF ondansetron 4 mg tablet,disintegrating 4 mg PO Q8H PRN PRN (Reason: Nausea) Qty: 10 0RF No Action Linzess 145 mcg capsule 145 mcg PO QAM Qty: 30 2RF insulin glargine [Lantus Solostar U-100 Insulin] 100 unit/mL (3 mL) insulin pen 20 unit SUBCUT BID Patient Comments: PT HAS BEEN TAKING 35-40 UNITS TWICE DAILY albuterol sulfate 90 mcg/actuation HFA aerosol inhaler 2 puff INHALATION Q4H PRN (Reason: shortness of breath or wheezing) Tayity 4.5 mg/0.5 mL pen injector 4.5 mg subcut SA promethazine 25 mg tablet 25 mg PO Q6H PRN (Reason: nausea and vomiting) Qty: 25 0RF Rx Instructions: 1 or 2 every 6 hours as needed for nausea and vomiting Primary Care Provider: Amy Dasilva Referrals: Venkatesh Torres DO [Med Staff - Active Staff] - Amy Dasilva, CAMER[employer] TUNING ENGINEER-C [Primary Care Provider] - Activity Restrictions/Additional Instructions: Continue to avoid marijuana use. Use medications as prescribed for your symptoms. Continue oral fluids for hydration. Follow-up with your GI team. Print Language: Bangladeshi Disposition Disposition: Home, Self Care Discharge Date/Time: 01/02/25 10:49
--- OUTSIDE RECORDS SUMMARY | 2025-01-02 07:23 | XMS RPT_ITS | CCD ---
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 Charles Green Other Provider [phone] Dr. Sophy Gibbons Primary Care Provider MD Drew Hinson Emergency Provider Maira, Dr. Brenda Ng Admit Provider Maira, Dr. Brenda Ng Attending Provider Maira, Dr. Brenda Ng Other Provider Dr. Gale Lr Attending Provider Dr. Gale Lr Other Provider Dr. Andres Matias Other Provider Norma, Dr. Soto Other Provider Dr. Alex Christiansen Emergency Provider Trishdubachjuventino, Dr. [place] Admit Provider Trishdubachjuventino, Dr. [place] Attending Provider Carlitos, Dr. [place] Other Provider Dr. Lexus Villatoro Attending Provider Dr. Lexus Villatoro Other Provider Unavailable Primary Care Provider Unavailarpita e Rashad LASER PRINT OPERATOR, Amy Primary Care Provider [facility] Pro vider Dr. Willie Dhillon Emergency Provider Dr. Lexus Villatoro Admit Provider Dr. Lexus Villatoro Attending Provider Dr. Lexus Villatoro Other Provider ABDIRIZAK RAMIREZ Attending Unavailable RASHAD AMY Primary Care Unavailable Rashad Amy Primary Care Provider RASHAD CONTROL SUPERVISOR-STRIP WINDER, [facility] Primary Care Physicia n DEWAYNE CHACON DO Attending Unavailable DEWAYNE CHACON DO Primary Care Unavailable DEWAYNE CHACON DO Admitting Unavailable ASUNCIONGERALDINE Admitting Unavailable ASUNCIONGERALDINE PENN Attending Unavailable ASUNCIONGERALDINE MAURICE Primary Care Unavailable [facility] Primary Care Pro vider Dr. Willie Dhillon Emergency Provider Dr. Lexus Villatoro Admit Provider Dr. Lexus Villatoro Attending Provider Dr. Lexus Villatoro Other Provider BUCKYTed ESSIE Attending Unavailable RICARDO GERALDINE Referring Unavailable RASHAD CONTROL SUPERVISOR-STRIP WINDER, AMY Primary Care Unava fanny WEBB CONTROL SUPERVISOR-STRIP WINDER, MARTI Matthews Attending HELENA Villa Admitting Unavailable [...] Provider Dr. Rickey Gifford Other Provider Rashad LASER PRINT OPERATOR, Amy Primary Care Provider Care Physician, No Primary Primary Care Provider Unavailable Dr. Javy Doss Emergency Provider Dr. Rickey Gifford Attending Provider Dr. Abdirizak Forrest Other Provider Dr. Rickey Gifford Admit Provider Dr. Rickey Gifford Other Provider Rashad LASER PRINT OPERATOR, [facility] Primary Care Provider SRIRAM KAMKATIA Admitting Unavailable KELLEY LOPEZ Attending Unavailable AMY SOLORZANO Primary Care Unavailable CAYETANO TAI Unavailable Unavailable Primary Care Provider Unavailabl e RASHAD, AMY Primary Care Unavailable IRAIS HANNA Referring Unavailable RASHAD, AMY Primary Care Unavailable RASHAD, AMY Primary Care Unavailable Rashad LASER PRINT OPERATOR-C, Amy Primary Care Provider Rashad LASER PRINT OPERATOR-C, Amy Attending Provider Lon DPM, Dr. Rothman Attending Provider Lon DPM, Dr. Rothman Referring Provider Drew Hinson MD Emergency Provider Maira BOYCE, Dr. Brenda Ng [...] Provider Clare Loo PA-C Attending Provider Rashad LASER PRINT OPERATOR-C, Amy Referring Provider Nayana Grigsby Attending Provider Nayana Grigsby Referring Provider Kalee Peter Referring Provider Unavailable Carolyne KIM, Dr. Ashton Emergency Provider Odell BOYCE, Dr. Hernandez Admit Provider Odell BOYCE, Dr. Hernandez Attending Provider Odell BOYCE, Dr. Hernandez Other Provider Rashad LASER PRINT OPERATOR-C, Amy Primary Care Provider Rashad LASER PRINT OPERATOR-C, Amy Attending Provider Lon DPM, Dr. Rothman Attending Provider Lon DPM, Dr. Rothman Referring Provider Yuliya BOYCE, Dr. Tony Peterson Attending Provider Sravan BOYCE, Drew Emergency Provider Maira BOYCE, Dr. Brenda Ng Admit Provider Maira BOYCE, Dr. Brenda Ng Other Provider Yuri BOYCE, Dr. Woody Other Provider Be KIM, Dr. Beasley Attending Provider Yuri BOYCE, Dr. Woody Attending Provider Be KIM, Dr. Beasley Referring Provider Maira BOYCE, Dr. Brenda Ng Attending Provider Be KIM, Dr. Beaslye Other Provider Clare Loo PA-C Attending Provider Rashad LASER PRINT OPERATOR-C, Amy Referring Provider Nayana Grigsby Attending Provider Nayana Grigsby Referring Provider Kalee Peter Referring Provider Unavailable Carolyne KIM, Dr. Ashton Emergency Provider Odell BOYCE, Dr. Hernandez Admit Provider Odell BOYCE, Dr. Hernandez Attending Provider Odell BOYCE, Dr. Hernandez Other Provider de Omega KIM, Dr. Jackson Admit Provider Unavail able de Omega KIM, Dr. Jackson Attending Provider Unav ailable de Omega KIM, Dr. Jackson Other Provider Unavail able Yfn KIM, Dr. Pires Attending Provider Yfn KIM, Dr. Pires Other Provider Brenda Rao Admitting Unavailable Rashad [facility], [facility] Primary Care Unavailabl e Gale Lr Attending Unavailable Robotham, Annalise Consulting Unavailable Koram, Brenda Berenice Consulting Unavailable Gale Lr Consulting Unavailable [facility], [facility] Primary Care Unavailabl e Odell, David Admitting Unavailable Odell, David Consulting Unavailable Odell, David Attending Unavailable Dewayne Grant Admitting Unavailable de OmegaDewayne Consulting Unavailable [facility], [facility] Primary Care Unavailabl e Frantz Coulter Attending Unavailable Frantz Coulter Consulting Unavailable Gale Lr Referring Unavailable Robotham, Annalise Attending Unavailable Koram, Brenda Berenice Admitting Unavailable [facility], [facility] Primary Care Unavailabl e Gale Lr Attending Unavailable Robotham, Annalise Consulting Unavailable Koram, Brenda Berenice Consulting Unavailable [facility], [facility] Care Unavailarpita e Venkatesh Torres Attending Unavailable [facility], [facility] Attending Unavailabl e [facility], [facility] Unavailabl e [facility], [facility] Unavailarpita e Nayana Peetr Attending Unavailable Nayana Peter Referring Unavailable [facility], [facility] Primary Care Unavailabl e Abdirizak Forrest Attending Unavailable Abdirizak Forrest Referring Unavailable [facility], [facility] Attending Unavailabl e [facility], [facility] Unavailabl e Maira, Brenda Berenice Attending Unavailable Clare Steve Attending Unavailable [facility], [facility] Referring Unavailabl e [facility], [facility] UnavailNayana Green Attending Unavailable Kalee Peter Referring Unavailable [facility], [facility] UnavailNayana Green Attending Unavailable [facility], [facility] Unavailabl e Abdirizak Forrest Attending Unavailable Abdirizak Forrest Referring Unavailable Dewayne Grant Admitting Unavailable Dewayne Grant Consulting Unavailable [facility], [facility] Care Unavailabl Frantz Phelan Attending Unavailable [facility], [facility] Primary Care Unavailabl e Odell, David Attending Unavailable Odell, David Admitting Unavailable [facility], [facility] Primary Care UnavailNayana Green Attending Unavailable Nayana Peter Referring Unavailable Allergies Allergy Classification Reported Allergen(s) Allergy Type Date of Onset Reaction(s) Facility (2 sources) Cephalexin Drug Allergy 10-31-2013 Other: See Comments [facility] Work Phone: Medications Current Medications Medication Drug Class(es) Dates Sig (Normalized) Sig (Original) [id number] 200 actuat albuterol 0.09 mg/actuat metered dose inhaler (20 sources) beta2-Adrenergic Agonist Start: 11-25-2024 Start: 11-25-2024 Albuterol Sulf ate 90 mcg/actuation HFA aerosol inhaler Active 2 NMA INHALATION Q4H as needed for shortness of breath or wheezing November 25, 2024 12:00am Start: 04-06-2022 End: 06-27-2023 Start: 04-06-2022 End: 06-27-2023 Albuterol Sulfate (Ventolin [...] 0 Refill(s), 02/18/23 5:07:00 PM EDT, Pharmacy: [id number], 169.9, cm, 02/11/23 1:49:00 EDT, Height, 94.4, kg, 02/11/23 1:49:00 EDT, Dosing Weight Start Date: 02/11/23 Stop Date: 02/18/23 Status: Ordered Start: 01-24-2023 End: 2023 take 1 capsule by mouth twice daily cephalexin (Keflex) 500 MG capsule Take 1 capsule (500 mg) by mouth 2 times daily for 5 days. 10 capsule 0 01/24/2023 2023 Active Start: 11-19-2022 End: 01-15-2023 Start: 11-19-2022 End: 01-15-2023 take 1 capsule by mouth three times daily Cephalexin 500 mg capsule Discontinued 500 mg PO THREE TIMES A DAY 29 01November 19, 2022 12:00am January 15, 2023 2:08pm Start: 10-08-2022 End: 10-15-2022 take 1 capsule by mouth three times daily cephALEXin (KEFLEX) 500 mg capsule Take 1 capsule by mouth three times daily for 7 days. 21 capsule 0 10/08/2022 10/15/2022 Active Start: 04-05-2022 End: 04-08-2022 Start: 04-05-2022 End: 04-08-2022 take 1 capsule by mouth every six hours Cephalexin 500 MG capsule Discontinued 500 mg PO EVERY 6 HOURS 40 April 05, 2022 12:00am April 08, 2022 12:26pm Start: 01-16-2022 End: 01-30-2022 Start: 01-16-2022 End: 01-30-2022 take 1 capsule by mouth every six hours Cephalexin 500 mg capsule Discontinued 500 mg PO EVERY 6 HOURS 40 January 16, 2022 12:00am January 30, 2022 1:44pm Start: 10-24-2021 End: 11-16-2021 Start: 10-24-2021 End: 11-16-2021 take 1 capsule by mouth every six hours Cephalexin 500 MG capsule Discontinued 500 mg PO EVERY 6 HOURS 40 October 24, 2021 12:00am November 16, 2021 9:58am Comment on above: Take 1 capsule by mo [facility] three times daily for 7 days. ciprofloxacin 500 mg oral tablet (1 source) Quinolone Antimicrobial Start: take 500 mg by mouth every twelve hours Ciprofloxacin Hcl Active 500 MG PO Q12H 10 5 August 15, 2022 12:00am clindamycin 300 mg oral capsule (1 source) Lincosamide Antibacterial Start: 023 12 hr dextromethorphan hydrobromide 30 mg / guaiFENesin 600 mg extended release oral tablet (1 source) Uncompetitive P-lqhfkl-R-aspartate Receptor Antagonist, Sigma-1 Agonist Start: End: take 1 tablet by mouth every twelve hours as needed dextromethorphan-gua iFENesin (MUCINEX DM) 30-600 mg per tablet Take 1 tablet by mouth two times a day as needed for cough for up to 7 days. 14 tablet 07/03/2024 07/10/2024 Active docusate sodium 50 mg / sennosides, residential 8.6 mg oral tablet (6 sources) Start: take 1 tablet by mouth once daily Sennosides-Docusate Sodium (Stimulant Laxative Plus) 8.6-50 mg tablet Active 1 - 2 TABLET PO DAILY April 06, 2022 12:00am Dulaglutide (20 sources) GLP-1 Receptor Agonist Start: 025 Start: 11-25-2024 Dulaglutide (T rulicity) 4.5 mg/0.5 mL pen injector Active 4.5 mg SC SA November 25, 2024 12:00am Start: 12-20-2023 End: 11-25-2024 Start: 12-20-2023 End: 11-25-2024 Dulaglutide (Trulicity) 1.5 [...] INSULIN 100 unit/mL (3 mL) Start: 08-12-2022 Start: 08-12-2022 Insulin Glargi ne (Lantus Solostar U-100 Insulin) 100 unit/mL (3 mL) insulin pen Active 20 U SC TWICE A DAY August 12, 2022 1:00am Start: 08-12-2022 Insulin Glargi ne (Lantus Solostar [...] Start: 06-30-20 linaclotide 0.145 mg oral capsule (7 sources) Guanylate Cyclase-C Agonist Start: 12-14-19 losartan potassium 50 mg oral tablet (10 sources) Angiotensin 2 Receptor Keisha Start: 03-05-20 take 1 tablet by mouth once daily losartan (COZAAR) 50 mg tablet Take 1 tablet by mouth once daily. 30 tablet 03/05/2023 Active Comment on above: Take 1 tablet by balbir once daily. metoclopramide 10 mg oral tablet (20 sources) Dopamine-2 Receptor Antagonist Start: 06-28-20 Start: 05-09-2023 End: 06-27-2023 Start: 01-24-2023 End: 01-31-2023 take 1 tablet [...] 01, 2022 12:00am Start: 01-26-2022 End: 01-30-2022 mupirocin 0.02 mg/mg topical ointment (1 source) [...] January 30, 2022 12:00am polyethylene glycol 3350 [id number] mg / potassium chloride 2970 mg / sodium bicarbonate 6740 mg / sodium chloride 5860 mg / sodium sulfate 55528 mg powder for oral solution (20 sources) Osmotic Laxative Start: 02-02-20 Peg 3350-Electrolytes (Gavilyte-G) 236-22.74-6.74 -5.86 gram recon soln Active ML February 01, 2022 12:00am Start: 01-26-2022 End: 01-30-2022 Start: 01-26-2022 End: 01-30-2022 Peg 3350-Electrolytes (Golyt [...] 01/13/23 Status: Ordered Start: 01-30-2022 End: 03-01-2022 Start: 01-30-2022 End: 03-01-2022 Start: 01-30-2022 End: 03-01-2022 Prochlorperazine 25 mg suppo sitory Discontinued 25 mg RC BEDTIME January 30, 2022 12:00am February 28, 2022 12:00am March 01, 2022 12:03am Start: 01-30-2022 End: 03-01-2022 Prochlorperazine Discontinue d 25 MG RC BEDTIME January 30, 2022 12:00am March 01, 2022 12:03am Start: 01-30-2022 End: 03-01-2022 Comment on above: Take 2 tablets by mo uth every 6 hours as needed. promethazine hydrochloride 2 5 mg oral tablet (20 sources) Phenothiazine Start: 01-01-2025 Start: 07-12-2023 End: 12-20-2023 Start: 06-25-2023 Start: 04-13-2023 End: 05-04-2023 Start: 01-10-2023 promethazine 2 5 mg rectal suppository Dose : 25 mg = 1 supp, Rectal, q6h, PRN for nausea/vomiting, # 10 supp, 0 Refill(s), Cannabis hyperemesis syndrome co-occurrent and due to cannabis abuse Start Date: 01/10/23 Status: Ordered Start: 01-09-2023 End: 05-04-2023 Start: 01-09-2023 End: 05-04-2023 take 1 tablet by mouth three times daily as needed for nausea and vomiting Promethazine 25 mg tablet Discontinued 25 mg PO THREE TIMES A DAY as needed for nausea and vomiting January 09, 2023 12:00am May 04, 2023 6:58pm Vancomycin In 0.9 % Sodium C hl (5 sources) Start: 04-08-2022 Vancomycin In 0.9 % Sodium Chl Active 1.75 GM IV Q12H 35076 40 April 08, 2022 12:00am stop date 05/18/22 dx: MRSA osteo weekly bmp, cbc, vanc trough, and esr. Fax to [phone] routine picc care per protocol Completed/Discontinued Medications Medication Drug Class(es) Dates Sig (Normalized) Sig (Original) acetaminophen 325 mg oral tablet (20 sources) Start: 05-09-2023 End: 06-27-2023 Start: 05-09-2023 End: 06-27-2023 take 650 mg by mouth every six hours as needed Acetaminophen Discontinued 650 MG PO EVERY 6 HOURS NEEDED 0 May 09, 2023 12:00am June 27, 2023 6:51am Start: 03-04-2023 take 2 tablets by mo [facility] every six hours as needed acetaminophen (TYLENOL EXTRA STRENGTH) 500 mg tablet Take 2 tablets by mouth every 6 hours as needed for pain. 30 tablet 03/04/2023 Active Comment on above: Take 2 tablets by mo uth every 6 hours as needed for pain. acetaminophen 325 mg / HYDRO codone bitartrate 5 mg oral tablet (20 sources) Opioid Agonist Start: 02-26-2023 End: 05-04-2023 Start: 02-26-2023 End: 05-04-2023 Hydrocodone-Acetaminophen 5- 325 mg tablet Discontinued 1 {tbl} PO EVERY 6 HOURS NEEDED as needed for Pain 12 February 26, 2023 May 04, 2023 1:24pm Start: 02-26-2023 End: 05-04-2023 take 1 tablet by mouth every six hours as needed Hydrocodone-Acetaminophen Discontinued 1 TABLET PO EVERY 6 HOURS NEEDED 12 February 26, 2023 May 04, 2023 1:24pm Start: 02-26-2023 End: 05-04-2023 Start: 10-24-2021 take 1 tablet by balbir th every six hours as needed Hydrocodone-Acetaminophen Active 1 TABLE T PO EVERY 6 HOURS NEEDED 04 13October 24, 2021 8:40am acetaminophen 325 mg / oxyCO DONE hydrochloride 5 mg oral tablet (20 sources) Opioid Agonist Start: 12-24-2023 End: 11-25-2024 Start: 12-24-2023 End: 11-25-2024 Oxycodone-Acetaminophen (Per cocet) 5-325 mg tablet Discontinued 1 {tbl} PO EVERY 6 HOURS as needed for pain 05 02December 24, 2023 November 25, 2024 1:29pm Start: 07-23-2023 End: 12-20-2023 Start: 07-23-2023 End: 12-20-2023 Oxycodone-Acetaminophen (Per cocet) 5-325 mg tablet Discontinued 1 {tbl} PO EVERY 6 HOURS as needed for pain 05 02July 29, 2023 December 20, 2023 2:03pm Start: 07-23-2023 amoxicillin 875 mg / clavula yvonne 125 mg oral tablet (20 sources) Penicillin-class Antibacterial Start: 11-28-2024 End: 12-30-2024 Start: 11-28-2024 End: 12-30-2024 Amoxicillin-Pot Clavulanate 875-125 mg Tablet Discontinued 1 {tbl} PO TWICE DAILY WITH MEALS 22 01November 28, 2024 12:00am December 30, 2024 11:00am Start: 07-02-2023 Start: 05-09-2023 End: 06-25-2023 Start: 05-09-2023 End: 06-25-2023 Amoxicillin-Pot Clavulanate 875-125 mg tablet Discontinued 1 {tbl} PO Q12H May 09, 2023 12:00am June 25, 2023 10:35am Start: 05-09-2023 End: 06-25-2023 take 1 tablet by mouth every twelve hours Amoxicillin-Pot Clavulanate Discontinued 1 TABLET PO Q12H May 09, 2023 12:00am June 25, 2023 10:35am Start: 05-09-2023 End: 06-25-2023 Start: 02-26-2023 End: 05-04-2023 Start: 02-26-2023 End: 05-04-2023 Amoxicillin-Pot Clavulanate 875-125 [...] Platelet Aggregation Inhibitor, Nonsteroidal Anti-inflammatory Drug Start: 07-23-2023 End: 11-25-2024 Start: 07-23-2023 End: 12-20-2023 take 1 tablet [...] Comment on above: Take 1 capsule by [facility] three times daily as needed for [...] sources) Stimulant Laxative Start: 01-15-2023 End: 06-27-2023 calcium carbonate 1250 mg / cholecalciferol 600 unt oral tablet (20 sources) Vitamin D Start: 07-23-2023 End: 11-25-2024 Start: 07-23-2023 End: 11-25-2024 Calcium Carbonate-Vitamin D3 (Os-Jose G 500 + D3) 500 mg-15 mcg (600 [...] mL IVPB Mini-Bag Plus (2 sources) Start: 01-24-2023 End: 01-24-2023 cefTRIAXone (Rocephin) 1,000 mg in sodium chloride 0.9 % 50 mL IVPB Mini-Bag Plus cyclobenzaprine hydrochlorid e 10 mg oral tablet (20 sources) Muscle Relaxant Start: 07-23-2023 End: 11-25-2024 2 ml dicyclomine hydrochloride 10 mg/ml injection (20 sources) Anticholinergic Start: 11-28-2024 End: 12-30-2024 Start: 04-14-2023 End: 06-27-2023 Start: 02-08-2023 End: 05-04-2023 Start: 02-08-2023 End: 05-04-2023 take 20 mg by mouth three times daily before mealtime Dicyclomine Discontinued 20 MG PO THREE TIMES DAILY BEFORE MEALS February 08, 2023 12:00am May 04, 2023 1:23pm Start: 01-24-2023 End: 01-24-2023 dicyclomine (Bentyl) injecti on 20 mg Start: 01-09-2023 End: 01-15-2023 1 ml diphenhydrAMINE hydrochloride 50 mg/ml cartridge (2 sources) Histamine-1 Receptor Antagonist Start: 01-24-2023 End: 01-24-2023 diphenhydrAMINE (BENADryl) injection 25 mg docusate sodium 100 mg oral capsule (20 sources) Start: 07-23-2023 End: 11-25-2024 Start: 01-30-2022 End: 04-06-2022 Start: 01-30-2022 End: 04-06-2022 take 1 capsule by mouth twice daily Docusate Sodium (Dulcolax Stool Softener (Dss)) 100 mg capsule Discontinued 100 mg PO TWICE A DAY January 30, 2022 12:00am April 06, 2022 3:13pm Start: 10-29-2021 take 1 capsule by mo [facility] once daily Docusate Sodium (Colace) 100 mg capsule Active 100 MG PO DAILY October 29, 2021 12:01pm doxycycline hyclate 100 mg o ral capsule (15 sources) Tetracycline-class Drug Start: 07-29-2023 End: 12-20-2023 Start: 10-08-2022 End: 10-15-2022 take 1 tablet [...] tablet (20 sources) Start: 01-07-2023 End: 06-27-2023 Start: 01-30-2022 take 0.125 mg by balbir th three times daily Hyoscyamine Sulfate Active 0.125 MG PO THREE TIMES A DAY January 30, 2022 12:00am lansoprazole 30 mg delayed r elease oral capsule (20 sources) Proton Pump Inhibitor Start: 02-08-2023 End: 05-04-2023 levoFLOXacin 750 mg oral tab let (20 sources) Quinolone Antimicrobial Start: 05-09-2023 End: 06-27-2023 metFORMIN hydrochloride 500 mg oral tablet (20 sources) Biguanide Start: 01-16-2022 End: 05-04-2023 Start: 01-16-2022 End: 05-04-2023 take 1 tablet [...] daily w/ meals. [facility]. MULTIVITAMIN ORAL (3 sources) End: 03-23-2022 MULTIVITAMIN ORAL Take by mouth. 03/23/2022 Discontinued End: 03-23-2022 MULTIVITAMIN ORAL Take by mo [facility]. 0 03/23/2022 Discontinued MULTIVITAMIN ORA L Take by mouth. 0 Active Comment on above: Take by mouth. omeprazole 40 mg delayed rel ease oral capsule (20 sources) Proton Pump Inhibitor Start: 01-19-2023 End: 05-09-2023 ondansetron 8 mg oral tablet (20 sources) Serotonin-3 Receptor Antagonist Start: 05-09-2023 End: 06-27-2023 Start: 01-24-2023 End: 01-24-2023 ondansetron (Zofran) injecti on 4 mg Start: 01-07-2023 End: 05-04-2023 Start: 01-07-2023 End: 05-04-2023 take 1 tablet [...] February 01, 2022 12:00am Start: 01-23-2022 End: 01-30-2022 Start: 01-23-2022 End: 02-18-2023 take 1 tablet by mouth every six hours as needed for nausea and vomiting Ondansetron 4 mg tablet,disintegrating Discontinued 4 mg PO EVERY 6 HOURS as needed for nausea and vomiting January 12, 2023 12:00am January 15, 2023 2:08pm Comment on above: Take 4 mg by mouth e very 6 hours as needed. polyethylene glycol 3350 170 00 mg powder for oral solution (20 sources) Osmotic Laxative Start: 11-28-2024 End: 12-30-2024 Start: 04-06-2022 End: 05-04-2023 Start: 06-06-2021 End: 02-18-2023 polyethylene glycol 3350 (SC RALAX, GLYCOLAX) 17 gram/dose powder Take 17 [...] take as directed. Patient not started yet. psyllium husk (METAMUCIL ORAL) (2 sources) End: 03-23-2022 psyllium husk (METAMUCIL ORAL) Take by mouth. 0 03/23/2022 Discontinued psyllium husk (M ETAMUCIL ORAL) Take by mouth. 0 Active Comment on above: Take by mouth. 72 hr scopolamine 0.0139 mg/ hr transdermal system (20 sources) Anticholinergic Start: 11-28-2024 End: 12-30-2024 Start: 11-28-2024 End: 12-30-2024 Scopolamine Base 1 mg over 3 days Patch 3 Day Discontinued 1 NMA TD Every 3 Days November 28, 2024 12:00am December 30, 2024 11:01am Start: 01-15-2023 End: 05-04-2023 Start: 01-15-2023 End: 05-04-2023 Scopolamine Base 1 [...] 01-15-2023 End: 05-04-2023 Start: 01-30-2022 End: 03-01-2022 Start: 01-30-2022 End: 03-01-2022 Scopolamine Base 1 [...] Antibacterial, Sulfonamide Antimicrobial Start: 02-24-2023 End: 05-04-2023 Start: 02-24-2023 End: 05-04-2023 Sulfamethoxazole-Trimethopri m (Bactrim Ds) 800-160 mg tablet Discontinued 1 {tbl} PO TWICE A DAY 14 February 24, 2023 12:00am May 04, 2023 6:58pm Start: 02-24-2023 End: 05-04-2023 Start: 11-19-2022 End: 01-15-2023 Start: 11-19-2022 End: 01-15-2023 take 1 tablet by mouth twice daily Sulfamethoxazole-Trimethoprim Discontinu ed 1 TABLET PO TWICE A DAY November 19, 2022 12:00am January 15, 2023 2:08pm Start: 11-19-2022 End: 01-15-2023 Start: 11-17-2022 End: 01-15-2023 Sulfamethoxazole-Trimethopri m (Bactrim Ds) 800-160 mg tablet Discontinued 1 {tbl} PO TWICE A DAY 4 2 November 19, 2022 12:00am January 15, 2023 2:08pm Start: 04-05-2022 End: 04-08-2022 Start: 04-05-2022 End: 04-08-2022 Sulfamethoxazole-Trimethopri m 1 TABLET tablet Discontinued 1 {tbl} PO TWICE A DAY April 05, 2022 12:00am April 08, 2022 12:26pm Start: 04-05-2022 End: 04-08-2022 take 1 tablet by mouth twice daily Sulfamethoxazole-Trimethoprim Discontinu ed 1 TABLET PO TWICE A DAY April 05, 2022 12:00am April 08, 2022 12:26pm Start: 04-05-2022 End: 04-08-2022 Start: 01-16-2022 End: 01-30-2022 Start: 01-16-2022 End: 01-30-2022 Sulfamethoxazole-Trimethopri m (Bactrim Ds) 800-160 mg tablet Discontinued 1 {tbl} PO TWICE A DAY January 16, 2022 12:00am January 30, 2022 1:45pm Start: 01-16-2022 End: 01-30-2022 Start: 10-24-2021 take 1 tablet by balbir th twice daily Sulfamethoxazole-Trimethoprim Active 1 T ABLET PO TWICE A DAY October 24, 2021 8:40am Comment on above: Take 1 tablet by balbir th twice daily for 5 days. traMADol hydrochloride 50 mg oral tablet (8 sources) Opioid Agonist Start: 11-28-2024 End: 12-30-2024 traZODone hydrochloride 300 mg oral tablet (20 sources) Serotonin Reuptake Inhibitor Start: 07-16-2023 End: 12-30-2024 Start: 07-16-2023 End: 12-30-2024 Trazodone 300 mg tablet Disc ontinued 200 mg PO AT BEDTIME as needed for insomnia July 16, 2023 1:00am December 30, 2024 11:01am Start: 07-16-2023 take 200 mg by mouth at bedtim e Trazodone Active 200 MG PO AT BEDTIME July 16, 2023 1:00am Start: 01-12-2023 End: 05-04-2023 Comment on above: Take 300 mg by mouth daily at bedtime. (8 sources) Start: 12-24-2023 End: 11-25-2024 Start: 07-23-2023 End: 11-25-2024 Start: 07-23-2023 Start: 07-16-2023 End: 11-25-2024 Start: 07-16-2023 Problems Active Problems Problem Classification Problem Date Documented Da te Episodic/Chronic Abdominal pain (20 sources) Abdominal pain; Translations: [Unspecified abdominal pain] Onset: 02-11-2023 Episodic Acute and unspecified renal failure (10 sources) Acute renal failure syndrome; Translations: [Acute kidney failure, unspecified] Onset: 01-01-2025 12-30-2024 Episodic Administrative/social admission (20 sources) Patient [...] unspecified] 08-19-2021 Episodic Intestinal obstruction without hernia (19 sources) Fecal impaction; Translations: [Fecal impaction] Onset: [...] Onset: 10-25-2024 Chronic Other connective tissue disease (20 sources) Contracture of Achilles tendon; Translations: [Short Achilles tendon (acquired), right ankle] 05-08-2023 Episodic Other connective tissue disease (8 sources) Short Achilles tendon (acquired), right ankle; Translations: [Contracture of tendon (sheath)] 05-09-2023 Episodic Other disorders of stomach and duodenum (6 sources) Cyclical vomiting syndrome; Translations: [Cyclical vomiting syndrome unrelated to migraine] 12-30-2024 Episodic Other eye disorders (1 source) Pain of right eye; Translations: [Ocular pain, right eye] 07-01-2023 Episodic Other eye disorders (14 sources) Complete obstruction of lacrimal canaliculus ; Translations: [Blocked tear duct] 07-02-2023 Episodic Other gastrointestinal disorders (20 sources) Constipation; Translations: [Constipation, unspecified] Onset: 03-02-2023 11-06-2021 Episodic Other gastrointestinal disorders (2 sources) Constipation, unspecified; Translations: [Constipation, unspecified] Onset: 02-11-2023 Episodic Other injuries and conditions due to external causes (11 sources) Unspecified injury of right Achilles tendon, initial encounter; Translations: [Injury of right Achilles tendon] 12-24-2023 Episodic Other liver diseases (6 sources) Elevated liver enzymes level; Translations: [Abnormal levels of other serum enzymes] 12-13-2024 Episodic Other lower respiratory disease (2 sources) Cough; Translations: [Acute cough] Episodic Other lower respiratory disease (1 source) Dyspnea; Translations: [Shortness of breath] 04-15-2023 Episodic Other lower respiratory disease (20 sources) H/O: asthma; Translations: [Personal history of other diseases of the respiratory system] 04-23-2023 Episodic Other lower respiratory disease (3 sources) Cough; Translations: [Acute cough] 03-23-2022 Episodic Other nervous system disorders (1 source) Other chronic pain; Translations: [Chronic abdominal pain] Onset: 03-01-2023 Chronic Other nervous system disorders (13 sources) Acute postoperative pain; Translations: [Other acute postprocedural pain] 07-23-2023 Episodic Other nutritional; endocrine; and metabolic disorders (8 sources) Body mass index 40+ - severely obese; Translations: [Morbid (severe) obesity due to excess calories] Onset: 06-13-2013 06-13-2013 Chronic Other nutritional; endocrine; and metabolic disorders (13 sources) Obese class I; Translations: [Obesity, unspecified] Onset: 02-18-2023 02-20-2023 Chronic Other nutritional; endocrine; and metabolic disorders (4 sources) Body mass index 30+ - obesity; Translations: [Obesity, unspecified] 12-31-2024 Chronic Other nutritional; endocrine; and metabolic disorders (2 sources) Obesity, unspecified; Translations: [Obesity, unspecified] Onset: 01-01-2025 Chronic Other nutritional; endocrine; and metabolic disorders [...] function studies] Onset: 12-28-2024 Episodic Personality disorders (15 sources) Borderline personality disorder; Translations: [Borderline personality disorder] Onset: 03-02-2023 03-02-2023 Chronic Pneumonia (except that caused by tuberculosis or sexually transmitted disease) (1 source) Bronchopneumonia; Translations: [Bronchopneumonia, unspecified organism] 06-26-2024 Episodic Residual codes; unclassified (20 sources) Other specified health status; Translations: [Failure of outpatient treatment] 01-14-2023 Episodic Residual codes; unclassified (4 sources) Patient noncompliance - general; Translations: [General patient noncompliance] 12-31-2024 Episodic Skin and subcutaneous tissue infections (20 [...] today or tomorrow to set up appointment. area secretary called to schedule appointment. I had to leave a message so Dr. Martinez office should be calling the patient within 48 hours. Unclassified (2 sources) Cyclical vomiting syndrome unrelated to migraine; Translations: [Cyclical vomiting syndrome unrelated to migraine] Onset: 01-01-2025 Unclassified (2 sources) Patient's noncompliance with other medical treatment and regimen due to unspecified reason; Translations: [Patient's noncompliance with other medical treatment and regimen due to unspecified reason] Onset: 01-01-2025 Urinary tract infections (20 sources) Acute pyelonephritis; [...] gap in Serum or Plasma Ordered By: Dewayne Duff on 01-01-2025 Anion gap [Moles/Vol] 9 mmol/L 11-23 [facility] BUN/creatinine ratioOrdered By: Dewayne Duff on 01-01-2025 Urea nitrogen/Creatinine [Mass ratio] 6.1 mg/mg Low - [facility] Basic Metabolic Profile (BMP )on 01-01-2025 BUN Normal - [facility] Comment on above: Order Comment: Call MD with results STAT Result Comment: Canc elled via OM: MD Ordered Performed By: #### L 500.2500 ####[facility] [address] [place], [address] BUN/CRE Normal - [facility] Comment on above: Order Comment: Call MD with results STAT Result Comment: Canc elled via OM: MD Ordered Performed By: #### L 500.2500 ####[facility] [address] [place], [address] Calcium Normal 7.6-11.0 [facility] Comment on above: Order Comment: Call MD with results STAT Result Comment: Canc elled via OM: MD Ordered Performed By: #### L 500.2500 ####[facility] [address] [place], [address] CL Normal 98-108 [facility] Comment on above: Order Comment: Call MD with results STAT Result Comment: Canc elled via OM: MD Ordered Performed By: #### L 500.2500 ####[facility] [address] [place], [address] CO2 Normal 21.0-32.0 [facility] Comment on above: Order Comment: Call MD with results STAT Result Comment: Canc elled via OM: MD Ordered Performed By: #### L 500.2500 ####[facility] [address] [place], [address] CREAT,SERUM Normal 0.70-1.20 [facility] Comment on above: Order Comment: Call MD with results STAT Result Comment: Canc elled via OM: MD Ordered Performed By: #### L 500.2500 ####[facility] [address] [place], [address] eGFR Normal >60 [facility] Comment on above: Order Comment: Call MD with results STAT Result Comment: Canc elled via OM: MD Ordered Performed By: #### L 500.2500 ####[facility] [address] [place], [address] GAP Normal 5-15 [facility] Comment on above: Order Comment: Call MD with results STAT Result Comment: Canc elled via OM: MD Ordered Performed By: #### L 500.2500 ####[facility] [address] [place], [address] GLU Normal 70-99 [facility] Comment on above: Order Comment: Call MD with results STAT Result Comment: Canc elled via OM: MD Ordered Performed By: #### L 500.2500 ####[facility] [address] [place], [address] Potassium Normal 3.3-5.1 [facility] Comment on above: Order Comment: Call MD with results STAT Result Comment: Canc elled via OM: MD Ordered Performed By: #### L 500.2500 ####[facility] [address] [place], [address] Basic Metabolic Profile (BMP) Normal 133-145 [facility] Comment on above: Order Comment: Call MD with results STAT Result Comment: Canc elled via OM: MD Ordered Performed By: #### L 500.2500 ####[facility] [address] [place], [address] BUN Normal 4-19 [facility] Comment on above: Order Comment: Call MD with results STAT Result Comment: Canc elled via OM: MD Ordered Performed By: #### L 500.2500 ####[facility] [address] [place], [address] BUN/CRE Normal 10-20 [facility] Comment on above: Order Comment: Call MD with results STAT Result Comment: Canc elled via OM: MD Ordered Performed By: #### L 500.2500 ####[facility] [address] [place], [address] Calcium Normal 7.6-11.0 [facility] Comment on above: Order Comment: Call MD with results STAT Result Comment: Canc elled via OM: MD Ordered Performed By: #### L 500.2500 ####[facility] [address] [place], [address] CL Normal 98-108 [facility] Comment on above: Order Comment: Call MD with results STAT Result Comment: Canc elled via OM: MD Ordered Performed By: #### L 500.2500 ####[facility] [address] [place], [address] CO2 Normal 21.0-32.0 [facility] Comment on above: Order Comment: Call MD with results STAT Result Comment: Canc elled via OM: MD Ordered Performed By: #### L 500.2500 ####[facility] [address] [place], [address] CREAT,SERUM Normal 0.70-1.20 [facility] Comment on above: Order Comment: Call MD with results STAT Result Comment: Canc elled via OM: MD Ordered Performed By: #### L 500.2500 ####[facility] [address] [place], [address] eGFR Normal >60 [facility] Comment on above: Order Comment: Call MD with results STAT Result Comment: Canc elled via OM: MD Ordered Performed By: #### L 500.2500 ####[facility] [address] [place], [address] GAP Normal 5-15 [facility] Comment on above: Order Comment: Call MD with results STAT Result Comment: Canc elled via OM: MD Ordered Performed By: #### L 500.2500 ####[facility] [address] [place], [address] GLU Normal 70-99 [facility] Comment on above: Order Comment: Call MD with results STAT Result Comment: Canc elled via OM: MD Ordered Performed By: #### L 500.2500 ####[facility] [address] [place], [address] Potassium Normal 3.3-5.1 [facility] Comment on above: Order Comment: Call MD with results STAT Result Comment: Canc elled via OM: MD Ordered Performed By: #### L 500.2500 ####[facility] [address] [place], [address] Basic Metabolic Profile (BMP) Normal 133-145 [facility] Comment on above: Order Comment: Call MD with results STAT Result Comment: Canc elled via OM: MD Ordered Performed By: #### L 500.2500 ####[facility] [address] [place], [address] BUN Normal 4-19 [facility] Comment on above: Order Comment: Call MD with results STAT Result Comment: Canc elled via OM: MD Ordered Performed By: #### L 500.2500 ####[facility] [address] [place], [address] BUN/CRE Normal 10-20 [facility] Comment on above: Order Comment: Call MD with results STAT Result Comment: Canc elled via OM: MD Ordered Performed By: #### L 500.2500 ####[facility] [address] [place], [address] Calcium Normal 7.6-11.0 [facility] Comment on above: Order Comment: Call MD with results STAT Result Comment: Canc elled via OM: MD Ordered Performed By: #### L 500.2500 ####[facility] [address] [place], [address] CL Normal 98-108 [facility] Comment on above: Order Comment: Call MD with results STAT Result Comment: Canc elled via OM: MD Ordered Performed By: #### L 500.2500 ####[facility] [address] [place], [address] CO2 Normal 21.0-32.0 [facility] Comment on above: Order Comment: Call MD with results STAT Result Comment: Canc elled via OM: MD Ordered Performed By: #### L 500.2500 ####[facility] [address] [place], [address] CREAT,SERUM Normal 0.70-1.20 [facility] Comment on above: Order Comment: Call MD with results STAT Result Comment: Canc elled via OM: MD Ordered Performed By: #### L 500.2500 ####[facility] [address] [place], [address] eGFR Normal >60 [facility] Comment on above: Order Comment: Call MD with results STAT Result Comment: Canc elled via OM: MD Ordered Performed By: #### L 500.2500 ####[facility] [address] [place], [address] GAP Normal 5-15 [facility] Comment on above: Order Comment: Call MD with results STAT Result Comment: Canc elled via OM: MD Ordered Performed By: #### L 500.2500 ####[facility] [address] [place], [address] GLU Normal 70-99 [facility] Comment on above: Order Comment: Call MD with results STAT Result Comment: Canc elled via OM: MD Ordered Performed By: #### L 500.2500 ####[facility] [address] [place], [address] Potassium Normal 3.3-5.1 [facility] Comment on above: Order Comment: Call MD with results STAT Result Comment: Canc elled via OM: MD Ordered Performed By: #### L 500.2500 ####[facility] [address] [place], [address] Basic Metabolic Profile (BMP) Normal 133-145 [facility] Comment on above: Order Comment: Call MD with results STAT Result Comment: Canc elled via OM: MD Ordered Performed By: #### L 500.2500 ####[facility] [address] [place], [address] BUN Normal 4-19 [facility] Comment on above: Order Comment: Call MD with results STAT Result Comment: Canc elled via OM: MD Ordered Performed By: #### L 500.2500 ####[facility] [address] [place], [address] BUN/CRE Normal 10-20 [facility] Comment on above: Order Comment: Call MD with results STAT Result Comment: Canc elled via OM: MD Ordered Performed By: #### L 500.2500 ####[facility] [address] [place], [address] Calcium Normal 7.6-11.0 [facility] Comment on above: Order Comment: Call MD with results STAT Result Comment: Canc elled via OM: MD Ordered Performed By: #### L 500.2500 ####[facility] [address] [place], [address] CL Normal 98-108 [facility] Comment on above: Order Comment: Call MD with results STAT Result Comment: Canc elled via OM: MD Ordered Performed By: #### L 500.2500 ####[facility] [address] [place], [address] CO2 Normal 21.0-32.0 [facility] Comment on above: Order Comment: Call MD with results STAT Result Comment: Canc elled via OM: MD Ordered Performed By: #### L 500.2500 ####[facility] [address] [place], [address] CREAT,SERUM Normal 0.70-1.20 [facility] Comment on above: Order Comment: Call MD with results STAT Result Comment: Canc elled via OM: MD Ordered Performed By: #### L 500.2500 ####[facility] [address] [place], [address] eGFR Normal >60 [facility] Comment on above: Order Comment: Call MD with results STAT Result Comment: Canc elled via OM: MD Ordered Performed By: #### L 500.2500 ####[facility] [address] [place], [address] GAP Normal 5-15 [facility] Comment on above: Order Comment: Call MD with results STAT Result Comment: Canc elled via OM: MD Ordered Performed By: #### L 500.2500 ####[facility] [address] [place], [address] GLU Normal 70-99 [facility] Comment on above: Order Comment: Call MD with results STAT Result Comment: Canc elled via OM: MD Ordered Performed By: #### L 500.2500 ####[facility] [address] [place], [address] Potassium Normal 3.3-5.1 [facility] Comment on above: Order Comment: Call MD with results STAT Result Comment: Canc elled via OM: MD Ordered Performed By: #### L 500.2500 ####[facility] [address] [place], [address] Basic Metabolic Profile (BMP) Normal 133-145 [facility] Comment on above: Order Comment: Call MD with results STAT Result Comment: Canc elled via OM: MD Ordered Performed By: #### L 500.2500 ####[facility] [address] [place], [address] BUN/CRE 6.1 RATIO Low 10-20 [facility] Comment on above: Performed By: #### L 500.2500 ####[facility] [address] [place], [address] Calcium [Mass/Vol] 7.9 mg/dL Normal 7.6-11.0 [facility] Comment on above: Performed By: #### L 500.2500 ####[facility] [address] [place], [address] Chloride [Moles/Vol] 111 mmol/L High 98-108 [facility] Comment on above: Performed By: #### L 500.2500 ####[facility] [address] [place], [address] CO2 [Moles/Vol] 20.1 mmol/L Low 21.0-32.0 [facility] Comment on above: Performed By: #### L 500.2500 ####[facility] [address] [place], [address] Creatinine [Mass/Vol] 0.76 mg/dL Normal 0.70-1.20 [facility] Comment on above: Performed By: #### L 500.2500 ####[facility] [address] [place], [address] ECRCL 133.37 ml/min Normal 50-250 [facility] Comment on above: Performed By: #### L 500.2500 ####[facility] [address] [place], [address] GAP 9 Normal 5-15 [facility] Comment on above: Performed By: #### L 500.2500 ####[facility] [address] [place], [address] GFR/1.73 sq M.predicted among non-blacks MDRD (S/P/Bld) [Vol rate/Area] 107 mL/min/{1.73_m2} Normal >60 [facility] Comment on above: Result Comment: mL/m in/1.73m2 CKD-EPI Creatinine Equation (2020) Performed By: #### L 500.2500 ####[facility] [address] [place], [address] Glucose [Mass/Vol] 127 mg/dL High 70-99 [facility] Comment on above: Performed By: #### L 500.2500 ####[facility] [address] [place], [address] Potassium [Moles/Vol] 3.9 mmol/L Normal 3.3-5.1 [facility] Comment on above: Performed By: #### L 500.2500 ####[facility] [address] [place], [address] Sodium [Moles/Vol] 140 mmol/L Normal 133-145 [facility] Comment on above: Performed By: #### L 500.2500 ####[facility] [address] [place], [address] Urea nitrogen [Mass/Vol] 5 mg/dL Normal 4-19 [facility] Comment on above: Performed By: #### L 500.2500 ####[facility] [address] [place], [address] BUN/CRE 6.5 RATIO Low 10-20 [facility] Comment on above: Order Comment: Call MD with results STAT Performed By: #### L 500.2500 ####[facility] [address] [place], [address] Calcium [Mass/Vol] 8.3 mg/dL Normal 7.6-11.0 [facility] Comment on above: Order Comment: Call MD with results STAT Performed By: #### L 500.2500 ####[facility] [address] [place], [address] Chloride [Moles/Vol] 109 mmol/L High 98-108 [facility] Comment on above: Order Comment: Call MD with results STAT Performed By: #### L 500.2500 ####[facility] [address] [place], [address] CO2 [Moles/Vol] 20.4 mmol/L Low 21.0-32.0 [facility] Comment on above: Order Comment: Call MD with results STAT Performed By: #### L 500.2500 ####[facility] [address] [place], [address] Creatinine [Mass/Vol] 0.78 mg/dL Normal 0.70-1.20 [facility] Comment on above: Order Comment: Call MD with results STAT Performed By: #### L 500.2500 ####[facility] [address] [place], [address] ECRCL 129.95 ml/min Normal 50-250 [facility] Comment on above: Order Comment: Call MD with results STAT Performed By: #### L 500.2500 ####[facility] [address] [place], [address] GAP 11 Normal 5-15 [facility] Comment on above: Order Comment: Call MD with results STAT Performed By: #### L 500.2500 ####[facility] [address] [place], [address] GFR/1.73 sq M.predicted among non-blacks MDRD (S/P/Bld) [Vol rate/Area] 103 mL/min/{1.73_m2} Normal >60 [facility] Comment on above: Order Comment: Call MD with results STAT Result Comment: mL/m in/1.73m2 CKD-EPI Creatinine Equation (2020) Performed By: #### L 500.2500 ####[facility] [address] [place], [address] Glucose [Mass/Vol] 71 mg/dL Normal 70-99 [facility] Comment on above: Order Comment: Call MD with results STAT Performed By: #### L 500.2500 ####[facility] [address] [place], [address] Potassium [Moles/Vol] 3.4 mmol/L Normal 3.3-5.1 [facility] Comment on above: Order Comment: Call MD with results STAT Performed By: #### L 500.2500 ####[facility] [address] [place], [address] Sodium [Moles/Vol] 141 mmol/L Normal 133-145 [facility] Comment on above: Order Comment: Call MD with results STAT Performed By: #### L 500.2500 ####[facility] [address] [place], [address] Urea nitrogen [Mass/Vol] 5 mg/dL Normal 4-19 [facility] Comment on above: Order Comment: Call MD with results STAT Performed By: #### L 500.2500 ####[facility] [address] [place], [address] BUN/CRE 7.2 RATIO Low 10-20 [facility] Comment on above: Order Comment: Call MD with results STAT Performed By: #### L 500.2500 ####[facility] [address] [place], [address] Calcium [Mass/Vol] 8.2 mg/dL Normal 7.6-11.0 [facility] Comment on above: Order Comment: Call MD with results STAT Performed By: #### L 500.2500 ####[facility] [address] [place], [address] Chloride [Moles/Vol] 108 mmol/L Normal 98-108 [facility] Comment on above: Order Comment: Call MD with results STAT Performed By: #### L 500.2500 ####[facility] [address] [place], [address] CO2 [Moles/Vol] 19.1 mmol/L Low 21.0-32.0 [facility] Comment on above: Order Comment: Call MD with results STAT Performed By: #### L 500.2500 ####[facility] [address] [place], [address] Creatinine [Mass/Vol] 0.84 mg/dL Normal 0.70-1.20 [facility] Comment on above: Order Comment: Call MD with results STAT Performed By: #### L 500.2500 ####[facility] [address] [place], [address] ECRCL 120.61 ml/min Normal 50-250 [facility] Comment on above: Order Comment: Call MD with results STAT Performed By: #### L 500.2500 ####[facility] [address] [place], [address] GAP 13 Normal 5-15 [facility] Comment on above: Order Comment: Call MD with results STAT Performed By: #### L 500.2500 ####[facility] [address] [place], [address] GFR/1.73 sq M.predicted among non-blacks MDRD (S/P/Bld) [Vol rate/Area] 94 mL/min/{1.73_m2} Normal >60 [facility] Comment on above: Order Comment: Call MD with results STAT Result Comment: mL/m in/1.73m2 CKD-EPI Creatinine Equation (2020) Performed By: #### L 500.2500 ####[facility] [address] [place], [address] Glucose [Mass/Vol] 189 mg/dL High 70-99 [facility] Comment on above: Order Comment: Call MD with results STAT Performed By: #### L 500.2500 ####[facility] [address] [place], [address] Potassium [Moles/Vol] 3.7 mmol/L Normal 3.3-5.1 [facility] Comment on above: Order Comment: Call MD with results STAT Performed By: #### L 500.2500 ####[facility] [address] [place], [address] Sodium [Moles/Vol] 139 mmol/L Normal 133-145 [facility] Comment on above: Order Comment: Call MD with results STAT Performed By: #### L 500.2500 ####[facility] [address] [place], [address] Urea nitrogen [Mass/Vol] 6 mg/dL Normal 4-19 [facility] Comment on above: Order Comment: Call MD with results STAT Performed By: #### L 500.2500 ####[facility] [address] [place], [address] Bedside Glucoseon 01-01-2025 FINGERSTICK GLU 113 mg/dL High 74-106 [facility] Comment on above: Result Comment: BULL GEMENT OF PATIENT CARE PER NURSING PROTOCOL Performed By: #### L 501.080 ####[facility] [address] [place], [address] FINGERSTICK GLU 119 mg/dL High 74-106 [facility] Comment on above: Result Comment: BULL GEMENT OF PATIENT CARE PER NURSING PROTOCOL Performed By: #### L 501.080 ####[facility] [address] [place], [address] FINGERSTICK GLU 104 mg/dL Normal 74-106 [facility] Comment on above: Result Comment: BULL GEMENT OF PATIENT CARE PER NURSING PROTOCOL Performed By: #### L 501.080 ####[facility] [address] [place], [address] FINGERSTICK GLU 110 mg/dL High 74-106 [facility] Comment on above: Result Comment: BULL GEMENT OF PATIENT CARE PER NURSING PROTOCOL Performed By: #### L 501.080 ####[facility] [address] [place], [address] FINGERSTICK GLU 98 mg/dL Normal 74-106 [facility] Comment on above: Result Comment: BULL GEMENT OF PATIENT CARE PER NURSING PROTOCOL Performed By: #### L 501.080 ####[facility] [address] [place], [address] FINGERSTICK GLU 62 mg/dL Low 74-106 [facility] Comment on above: Result Comment: BULL GEMENT OF PATIENT CARE PER NURSING PROTOCOL Performed By: #### L 501.080 ####[facility] [address] [place], [address] FINGERSTICK GLU 112 mg/dL High 74-106 [facility] Comment on above: Result Comment: BULL GEMENT OF PATIENT CARE PER NURSING PROTOCOL Performed By: #### L 501.080 ####[facility] [address] [place], [address] FINGERSTICK GLU 134 mg/dL High 74-106 [facility] Comment on above: Result Comment: BULL GEMENT OF PATIENT CARE PER NURSING PROTOCOL Performed By: #### L 501.080 ####[facility] [address] [place], [address] FINGERSTICK GLU 144 mg/dL High 74-106 [facility] Comment on above: Result Comment: BULL GEMENT OF PATIENT CARE PER NURSING PROTOCOL Performed By: #### L 501.080 ####[facility] [address] [place], [address] FINGERSTICK GLU 179 mg/dL High 74-106 [facility] Comment on above: Result Comment: BULL GEMENT OF PATIENT CARE PER NURSING PROTOCOL Performed By: #### L 501.080 ####[facility] [address] [place], [place], [address] Beta-Hydroxbytyrateon 2024 BETA-HYDROXYBUT 0.0 mmol/L Normal 0.0-0.3 [facility] Comment on above: Performed By: #### L 501.6901 ####[facility] [address] [place], [address] Beta-hydroxybutyrateOrdered By: Dewayne Duff on 01-01-2025 Beta hydroxybutyrate [Mass/Vol] 0.0 mmol/L 0.0-0.3 [facility] CO2 (BldV) [Moles/Vol]Ordere d By: Dewayne Duff on 01-01-2025 CO2 [Moles/Vol] 23 mmol/L [facility] Carbon dioxide, total [Moles /volume] in Central venous bloodOrdered By: Dewayne Duff on 01-01-2025 CO2 [Moles/Vol] 20.1 mmol/L Low 21.0-32.0 [facility] Chloride assayOrdered By: Gaurang Duff on 01-01-2025 Chloride [Moles/Vol] 111 mmol/L High 98-108 [facility] Discharge Instructionon 12-11 Discharge Instruction Normal [facility] Glomerular filtration rate ( GFR) estimation/1.73 sq m using serum, plasma, or whole bOrdered By: Dewayne Duff on 01-01-2025 GFR/1.73 sq M.predicted among non-blacks MDRD (S/P/Bld) [Vol rate/Area] 107 mL/min/{1.73_m2} >60 [facility] Glucose measurement at bedsi deOrdered By: Frantz Coulter on 01-01-2025 Glucose [Mass/Vol] 113 mg/dL High 74-106 [facility] No Panel InformationOrdered By: Dewayne Duff on 01-01-2025 ESTRELLA [facility] Not entered [facility] Potassium measurement (mass/ volume)Ordered By: Dewayne Duff on 01-01-2025 Potassium (Unsp spec) [Mass/Vol] 3.9 mmol/L 3.3-5.1 [facility] Serum creatinine measurement (mass/volume)Ordered By: Dewayne Duff on 01-01-2025 Creatinine [Mass/Vol] 0.76 mg/dL 0.70-1.20 [facility] Serum glucose measurement (m ass/volume)Ordered By: Dewayne Duff on 01-01-2025 Glucose [Mass/Vol] 127 mg/dL High 70-99 [facility] Serum or plasma calcium hussein urement (mass/volume)Ordered By: Dewayne Duff on 01-01-2025 Calcium [Mass/Vol] 7.9 mg/dL 7.6-11.0 [facility] Serum or plasma urea nitroge n measurement (mass/volume)Ordered By: Dewayne Duff on 01-01-2025 Urea nitrogen [Mass/Vol] 5 mg/dL 4-19 [facility] Sodium levelOrdered By: Fletcher Duff on 01-01-2025 Sodium [Moles/Vol] 140 mmol/L 133-145 [facility] Urine Cultureon 01-01-2025 [facility] Mixed Gram Positive Organisms [place] Count 25,000-50,000 MIXC Mixed contaminants. Submit a new specimen if indicated. Normal [facility] Comment on above: Performed By: #### M 100.2200 ####[facility] [address] [place], [place], [address] Venous Blood Gason 5 Blood Gas Type ESTRELLA Normal [facility] Comment on above: Performed By: #### L 9000.0810 ####[facility] [address] [place], [address] CO2 [Moles/Vol] 23 mmol/L Normal 23-33 [facility] Comment on above: Performed By: #### L 9000.0810 ####[facility] [address] [facility] [address] FI02 21.0 Normal [facility] Comment on above: Performed By: #### L 9000.0810 ####[facility] [address] [place], [address] HCO3 (Bld) [Moles/Vol] 22 mmol/L Normal 22-26 [facility] [place] Comment on above: Performed By: #### L 9000.0810 ####[facility] [address] [place], [address] O2 Delivery Dev Not entered Normal [facility] Comment on above: Performed By: #### L 9000.0810 ####[facility] [address] [place], [address] SITE Not entered Normal [facility] Comment on above: Performed By: #### L 9000.0810 ####[facility] [address] [place], [address] VBG BE -3 mmol/L Low -1.0-3.5 [facility] Comment on above: Performed By: #### L 9000.0810 ####[facility] [address] [place], [address] VBG pCO2 35.7 mmHg Low 41-51 [facility] Comment on above: Performed By: #### L 9000.0810 ####[facility] [address] [place], [address] VBG pH 7.40 Normal 7.32-7.42 [facility] Comment on above: Performed By: #### L 9000.0810 ####[facility] [address] [place], [address] VBG PO2 53 mmHg High 25-40 [facility] Comment on above: Performed By: #### L 9000.0810 ####[facility] [address] [place], [address] VBG SO2 87 High 50-70 [facility] Comment on above: Performed By: #### L 9000.0810 ####[facility] [address] [place], [address] Venous blood base excess kedar surementOrdered By: Dewayne Duff on 01-01-2025 Base excess Calc (BldV) [Moles/Vol] -3 mmol/L Low -1.0-3.5 [facility] Venous blood bicarbonate kedar surementOrdered By: Dewayne Duff on 01-01-2025 HCO3 (Bld) [Moles/Vol] 22 mmol/L - [facility] [place] Venous blood pH measurementO rdered By: Dewayne Duff on 01-01-2025 pH (BldV) 7.40 [pH] 7.32-7.42 [facility] Venous blood partial pressur e of carbon dioxide measurementOrdered By: Dewayne Duff on 01-01-2025 CO2 (BldV) [Partial pressure] 35.7 mm[Hg] Low 41-51 [facility] Venous blood partial pressur e of oxygen measurementOrdered By: Dewayne Duff on 01-01-2025 Oxygen (BldV) [Partial pressure] 53 mm[Hg] High 25-40 [facility] Absolute lymphocyte countOrd ered By: Poli Barfield on 12-31-2024 Lymphocytes Auto (Unsp spec) [#/Vol] 2.74 10*3/uL 0.83-4.51 [facility] Anion gap in Serum or Plasma Ordered By: Poli Barfield on 12-31-2024 Anion gap [Moles/Vol] 13 mmol/L 11-23 [facility] Anion gap in Serum or Plasma Ordered By: David Bain on 12-31-2024 Anion gap [Moles/Vol] 12 mmol/L 11-23 [facility] Automated lymphocyte count a s percentage of total leukocytesOrdered By: Poli Barfield on 12-31-2024 Lymphocytes/100 WBC Auto (Unsp spec) 27.7 % 19- [facility] BUN/creatinine ratioOrdered By: Poli Barfield on 12-31-2024 Urea nitrogen/Creatinine [Mass ratio] 8.0 mg/mg Low - [facility] BUN/creatinine ratioOrdered By: David Bain on 12-31-2024 Urea nitrogen/Creatinine [Mass ratio] 10.2 mg/mg - [facility] Basic Metabolic Profile (BMP )on 12-31-2024 BUN/CRE 8.0 RATIO Low 10-20 [facility] Comment on above: Performed By: #### L 500.2500 ####[facility] [address] [place], [address] Calcium [Mass/Vol] 8.2 mg/dL Normal 7.6-11.0 [facility] Comment on above: Performed By: #### L 500.2500 ####[facility] [address] [place], [address] Chloride [Moles/Vol] 108 mmol/L Normal 98-108 [facility] Comment on above: Performed By: #### L 500.2500 ####[facility] [address] [place], [address] CO2 [Moles/Vol] 18.2 mmol/L Low 21.0-32.0 [facility] Comment on above: Performed By: #### L 500.2500 ####[facility] [address] [place], [address] Creatinine [Mass/Vol] 0.85 mg/dL Normal 0.70-1.20 [facility] Comment on above: Performed By: #### L 500.2500 ####[facility] [address] [place], [address] ECRCL 118.14 ml/min Normal 50-250 [facility] Comment on above: Performed By: #### L 500.2500 ####[facility] [address] [place], [address] GAP 13 Normal 5-15 [facility] Comment on above: Performed By: #### L 500.2500 ####[facility] [address] [place], [address] GFR/1.73 sq M.predicted among non-blacks MDRD (S/P/Bld) [Vol rate/Area] 93 mL/min/{1.73_m2} Normal >60 [facility] Comment on above: Result Comment: mL/m in/1.73m2 CKD-EPI Creatinine Equation (2020) Performed By: #### L 500.2500 ####[facility] [address] [place], [address] Glucose [Mass/Vol] 177 mg/dL High 70-99 [facility] Comment on above: Performed By: #### L 500.2500 ####[facility] [address] [place], [address] Potassium [Moles/Vol] 3.7 mmol/L Normal 3.3-5.1 [facility] Comment on above: Performed By: #### L 500.2500 ####[facility] [address] [place], [address] Sodium [Moles/Vol] 139 mmol/L Normal 133-145 [facility] Comment on above: Performed By: #### L 500.2500 ####[facility] [address] [place], [address] Urea nitrogen [Mass/Vol] 7 mg/dL Normal 4-19 [facility] Comment on above: Performed By: #### L 500.2500 ####[facility] [address] [place], [address] BUN/CRE 7.1 RATIO Low 10-20 [facility] Comment on above: Performed By: #### L 500.2500, L501.6901 ####[facility] [address] [place], [address] Calcium [Mass/Vol] 9.1 mg/dL Normal 7.6-11.0 [facility] Comment on above: Performed By: #### L 500.2500, L501.6901 ####[facility] [address] [place], [address] Chloride [Moles/Vol] 105 mmol/L Normal 98-108 [facility] Comment on above: Performed By: #### L 500.2500, L501.6901 ####[facility] [address] [place], [address] CO2 [Moles/Vol] 20.4 mmol/L Low 21.0-32.0 [facility] Comment on above: Performed By: #### L 500.2500, L501.6901 ####[facility] [address] [place], [address] Creatinine [Mass/Vol] 0.99 mg/dL Normal 0.70-1.20 [facility] Comment on above: Performed By: #### L 500.2500, L501.6901 ####[facility] [address] [place], [address] ECRCL 101.44 ml/min Normal 50-250 [facility] Comment on above: Performed By: #### L 500.2500, L501.6901 ####[facility] [address] [place], [address] GAP 15 Normal 5-15 [facility] Comment on above: Performed By: #### L 500.2500, L501.6901 ####[facility] [address] [place], [address] GFR/1.73 sq M.predicted among non-blacks MDRD (S/P/Bld) [Vol rate/Area] 77 mL/min/{1.73_m2} Normal >60 [facility] Comment on above: Result Comment: mL/m in/1.73m2 CKD-EPI Creatinine Equation (2020) Performed By: #### L 500.2500, L501.6901 ####[facility] [address] [place], [address] Glucose [Mass/Vol] 160 mg/dL High 70-99 [facility] Comment on above: Performed By: #### L 500.2500, L501.6901 ####[facility] [address] [place], [address] Potassium [Moles/Vol] 3.8 mmol/L Normal 3.3-5.1 [facility] Comment on above: Performed By: #### L 500.2500, L501.6901 ####[facility] [address] [place], [address] Sodium [Moles/Vol] 140 mmol/L Normal 133-145 [facility] Comment on above: Performed By: #### L 500.2500, L501.6901 ####[facility] [address] [place], [address] Urea nitrogen [Mass/Vol] 7 mg/dL Normal 4-19 [facility] Comment on above: Performed By: #### L 500.2500, L501.6901 ####[facility] [address] [place], [address] BUN Normal 4-19 [facility] Comment on above: Order Comment: Call MD with results STAT Result Comment: Canc elled via OM: Order cancelled - Patient discharged Performed By: #### L 500.2500 ####[facility] [address] [place], [address] BUN/CRE Normal 10-20 [facility] Comment on above: Order Comment: Call MD with results STAT Result Comment: Canc elled via OM: Order cancelled - Patient discharged Performed By: #### L 500.2500 ####[facility] [address] [place], [address] Calcium Normal 7.6-11.0 [facility] Comment on above: Order Comment: Call MD with results STAT Result Comment: Canc elled via OM: Order cancelled - Patient discharged Performed By: #### L 500.2500 ####[facility] [address] [place], [address] CL Normal 98-108 [facility] Comment on above: Order Comment: Call MD with results STAT Result Comment: Canc elled via OM: Order cancelled - Patient discharged Performed By: #### L 500.2500 ####[facility] [address] [place], [address] CO2 Normal 21.0-32.0 [facility] Comment on above: Order Comment: Call MD with results STAT Result Comment: Canc elled via OM: Order cancelled - Patient discharged Performed By: #### L 500.2500 ####[facility] [address] [place], [address] CREAT,SERUM Normal 0.70-1.20 [facility] Comment on above: Order Comment: Call MD with results STAT Result Comment: Canc elled via OM: Order cancelled - Patient discharged Performed By: #### L 500.2500 ####[facility] [address] [place], [address] eGFR Normal >60 [facility] Comment on above: Order Comment: Call MD with results STAT Result Comment: Canc elled via OM: Order cancelled - Patient discharged Performed By: #### L 500.2500 ####[facility] [address] [place], [address] GAP Normal 5-15 [facility] Comment on above: Order Comment: Call MD with results STAT Result Comment: Canc elled via OM: Order cancelled - Patient discharged Performed By: #### L 500.2500 ####[facility] [address] [place], [address] GLU Normal 70-99 [facility] Comment on above: Order Comment: Call MD with results STAT Result Comment: Canc elled via OM: Order cancelled - Patient discharged Performed By: #### L 500.2500 ####[facility] [address] [place], [address] Potassium Normal 3.3-5.1 [facility] Comment on above: Order Comment: Call MD with results STAT Result Comment: Canc elled via OM: Order cancelled - Patient discharged Performed By: #### L 500.2500 ####[facility] [address] [place], [address] Basic Metabolic Profile (BMP) Normal 133-145 [facility] Comment on above: Order Comment: Call MD with results STAT Result Comment: Canc elled via OM: Order cancelled - Patient discharged Performed By: #### L 500.2500 ####[facility] [address] [place], [address] BUN Normal 4-19 [facility] Comment on above: Order Comment: Call MD with results STAT Result Comment: Canc elled via OM: Order cancelled - Patient discharged Performed By: #### L 500.2500 ####[facility] [address] [place], [address] BUN/CRE Normal 10-20 [facility] Comment on above: Order Comment: Call MD with results STAT Result Comment: Canc elled via OM: Order cancelled - Patient discharged Performed By: #### L 500.2500 ####[facility] [address] [place], [address] Calcium Normal 7.6-11.0 [facility] Comment on above: Order Comment: Call MD with results STAT Result Comment: Canc elled via OM: Order cancelled - Patient discharged Performed By: #### L 500.2500 ####[facility] [address] [place], [address] CL Normal 98-108 [facility] Comment on above: Order Comment: Call MD with results STAT Result Comment: Canc elled via OM: Order cancelled - Patient discharged Performed By: #### L 500.2500 ####[facility] [address] [place], [address] CO2 Normal 21.0-32.0 [facility] Comment on above: Order Comment: Call MD with results STAT Result Comment: Canc elled via OM: Order cancelled - Patient discharged Performed By: #### L 500.2500 ####[facility] [address] [place], [address] CREAT,SERUM Normal 0.70-1.20 [facility] Comment on above: Order Comment: Call MD with results STAT Result Comment: Canc elled via OM: Order cancelled - Patient discharged Performed By: #### L 500.2500 ####[facility] [address] [place], [address] eGFR Normal >60 [facility] Comment on above: Order Comment: Call MD with results STAT Result Comment: Canc elled via OM: Order cancelled - Patient discharged Performed By: #### L 500.2500 ####[facility] [address] [place], [address] GAP Normal 5-15 [facility] Comment on above: Order Comment: Call MD with results STAT Result Comment: Canc elled via OM: Order cancelled - Patient discharged Performed By: #### L 500.2500 ####[facility] [address] [place], [address] GLU Normal 70-99 [facility] Comment on above: Order Comment: Call MD with results STAT Result Comment: Canc elled via OM: Order cancelled - Patient discharged Performed By: #### L 500.2500 ####[facility] [address] [place], [address] Potassium Normal 3.3-5.1 [facility] Comment on above: Order Comment: Call MD with results STAT Result Comment: Canc elled via OM: Order cancelled - Patient discharged Performed By: #### L 500.2500 ####[facility] [address] [place], [address] Basic Metabolic Profile (BMP) Normal 133-145 [facility] Comment on above: Order Comment: Call MD with results STAT Result Comment: Canc elled via OM: Order cancelled - Patient discharged Performed By: #### L 500.2500 ####[facility] [address] [place], [address] BUN/CRE 10.2 RATIO Normal 10-20 [facility] Comment on above: Order Comment: Call MD with results STAT Performed By: #### L 500.2500 ####[facility] [address] [place], [address] Calcium [Mass/Vol] 8.2 mg/dL Normal 7.6-11.0 [facility] Comment on above: Order Comment: Call MD with results STAT Performed By: #### L 500.2500 ####[facility] [address] [place], [address] Chloride [Moles/Vol] 106 mmol/L Normal 98-108 [facility] Comment on above: Order Comment: Call MD with results STAT Performed By: #### L 500.2500 ####[facility] [address] [place], [address] CO2 [Moles/Vol] 21.3 mmol/L Normal 21.0-32.0 [facility] Comment on above: Order Comment: Call MD with results STAT Performed By: #### L 500.2500 ####[facility] [address] [place], [address] Creatinine [Mass/Vol] 0.82 mg/dL Normal 0.70-1.20 [facility] Comment on above: Order Comment: Call MD with results STAT Performed By: #### L 500.2500 ####[facility] [address] [place], [address] ECRCL 123.80 ml/min Normal 50-250 [facility] Comment on above: Order Comment: Call MD with results STAT Performed By: #### L 500.2500 ####[facility] [address] [place], [address] GAP 12 Normal 5-15 [facility] Comment on above: Order Comment: Call MD with results STAT Performed By: #### L 500.2500 ####[facility] [address] [place], [address] GFR/1.73 sq M.predicted among non-blacks MDRD (S/P/Bld) [Vol rate/Area] 97 mL/min/{1.73_m2} Normal >60 [facility] Comment on above: Order Comment: Call MD with results STAT Result Comment: mL/m in/1.73m2 CKD-EPI Creatinine Equation (2020) Performed By: #### L 500.2500 ####[facility] [address] [place], [address] Glucose [Mass/Vol] 129 mg/dL High 70-99 [facility] Comment on above: Order Comment: Call MD with results STAT Performed By: #### L 500.2500 ####[facility] [address] [place], [address] Potassium [Moles/Vol] 3.6 mmol/L Normal 3.3-5.1 [facility] Comment on above: Order Comment: Call MD with results STAT Performed By: #### L 500.2500 ####[facility] [address] [place], [address] Sodium [Moles/Vol] 138 mmol/L Normal 133-145 [facility] Comment on above: Order Comment: Call MD with results STAT Performed By: #### L 500.2500 ####[facility] [address] [place], [address] Urea nitrogen [Mass/Vol] 8 mg/dL Normal 4-19 [facility] Comment on above: Order Comment: Call MD with results STAT Performed By: #### L 500.2500 ####[facility] [address] [place], [address] BUN/CRE 10.6 RATIO Normal 10-20 [facility] Comment on above: Order Comment: Call MD with results STAT Performed By: #### L 500.2500 ####[facility] [address] [place], [address] Calcium [Mass/Vol] 8.0 mg/dL Normal 7.6-11.0 [facility] Comment on above: Order Comment: Call MD with results STAT Performed By: #### L 500.2500 ####[facility] [address] [place], [address] Chloride [Moles/Vol] 106 mmol/L Normal 98-108 [facility] Comment on above: Order Comment: Call MD with results STAT Performed By: #### L 500.2500 ####[facility] [address] [place], [address] CO2 [Moles/Vol] 23.0 mmol/L Normal 21.0-32.0 [facility] Comment on above: Order Comment: Call MD with results STAT Performed By: #### L 500.2500 ####[facility] [address] [place], [address] Creatinine [Mass/Vol] 0.84 mg/dL Normal 0.70-1.20 [facility] Comment on above: Order Comment: Call MD with results STAT Performed By: #### L 500.2500 ####[facility] [facility] [address] [place], [address] ECRCL 119.52 ml/min Normal 50-250 [facility] Comment on above: Order Comment: Call MD with results STAT Performed By: #### L 500.2500 ####[facility] [address] [place], [address] GAP 11 Normal 5-15 [facility] Comment on above: Order Comment: Call MD with results STAT Performed By: #### L 500.2500 ####[facility] [address] [place], [address] GFR/1.73 sq M.predicted among non-blacks MDRD (S/P/Bld) [Vol rate/Area] 94 mL/min/{1.73_m2} Normal >60 [facility] Comment on above: Order Comment: Call MD with results STAT Result Comment: mL/m in/1.73m2 CKD-EPI Creatinine Equation (2020) Performed By: #### L 500.2500 ####[facility] [address] [place], [address] Glucose [Mass/Vol] 106 mg/dL High 70-99 [facility] Comment on above: Order Comment: Call MD with results STAT Performed By: #### L 500.2500 ####[facility] [address] [place], [address] Potassium [Moles/Vol] 3.3 mmol/L Normal 3.3-5.1 [facility] Comment on above: Order Comment: Call MD with results STAT Result Comment: Hemo lysis present, Results??could be affected.?? Performed By: #### L 500.2500 ####[facility] [address] [place], [address] Sodium [Moles/Vol] 140 mmol/L Normal 133-145 [facility] Comment on above: Order Comment: Call MD with results STAT Performed By: #### L 500.2500 ####[facility] [address] [place], [address] Urea nitrogen [Mass/Vol] 9 mg/dL Normal 4-19 [facility] Comment on above: Order Comment: Call MD with results STAT Performed By: #### L 500.2500 ####[facility] [address] [place], [address] Basophil percentageOrdered B y: Poli Le on 12-31-2024 Basophils/100 WBC (Bld) 0.5 % 0-1 [facility] Bedside Glucoseon 06-22-2025 FINGERSTICK GLU 173 mg/dL High 74-106 [facility] Comment on above: Result Comment: BULL GEMENT OF PATIENT CARE PER NURSING PROTOCOL Performed By: #### L 501.080 ####[facility] [address] [place], [address] FINGERSTICK GLU 169 mg/dL High 74-106 [facility] Comment on above: Result Comment: BULL GEMENT OF PATIENT CARE PER NURSING PROTOCOL Performed By: #### L 501.080 ####[facility] [address] [place], [address] FINGERSTICK GLU 152 mg/dL High 74-106 [facility] Comment on above: Result Comment: BULL GEMENT OF PATIENT CARE PER NURSING PROTOCOL Performed By: #### L 501.080 ####[facility] [address] [place], [address] FINGERSTICK GLU 140 mg/dL High 74-106 [facility] Comment on above: Result Comment: BULL GEMENT OF PATIENT CARE PER NURSING PROTOCOL Performed By: #### L 501.080 ####[facility] [address] [place], [address] FINGERSTICK GLU 146 mg/dL High 74-106 [facility] Comment on above: Result Comment: BULL GEMENT OF PATIENT CARE PER NURSING PROTOCOL Performed By: #### L 501.080 ####[facility] [address] [place], [address] FINGERSTICK GLU 147 mg/dL High 74-106 [facility] Comment on above: Result Comment: BULL GEMENT OF PATIENT CARE PER NURSING PROTOCOL Performed By: #### L 501.080 ####[facility] [address] [facility] [address] FINGERSTICK GLU 136 mg/dL High 74-106 [facility] Comment on above: Result Comment: BULL GEMENT OF PATIENT CARE PER NURSING PROTOCOL Performed By: #### L 501.080 ####[facility] [address] [place], [address] FINGERSTICK GLU 120 mg/dL High 74-106 [facility] Comment on above: Result Comment: BULL GEMENT OF PATIENT CARE PER NURSING PROTOCOL Performed By: #### L 501.080 ####[facility] [address] [place], [address] FINGERSTICK GLU 112 mg/dL High 74-106 [facility] Comment on above: Result Comment: BULL GEMENT OF PATIENT CARE PER NURSING PROTOCOL Performed By: #### L 501.080 ####[facility] [address] [place], [address] FINGERSTICK GLU 106 mg/dL Normal 74-106 [facility] Comment on above: Result Comment: BULL GEMENT OF PATIENT CARE PER NURSING PROTOCOL Performed By: #### L 501.080 ####[facility] [address] [place], [address] FINGERSTICK GLU 84 mg/dL Normal 74-106 [facility] Comment on above: Result Comment: BULL GEMENT OF PATIENT CARE PER NURSING PROTOCOL Performed By: #### L 501.080 ####[facility] [address] [place], [address] FINGERSTICK GLU 99 mg/dL Normal 74-106 [facility] Comment on above: Result Comment: BULL GEMENT OF PATIENT CARE PER NURSING PROTOCOL Performed By: #### L 501.080 ####[facility] [address] [place], [address] FINGERSTICK GLU 104 mg/dL Normal 74-106 [facility] Comment on above: Result Comment: BULL GEMENT OF PATIENT CARE PER NURSING PROTOCOL Performed By: #### L 501.080 ####[facility] [address] [place], [address] FINGERSTICK GLU 130 mg/dL High 74-106 [facility] Comment on above: Result Comment: BULL SAMAYOA OF PATIENT CARE PER NURSING PROTOCOL Performed By: #### L 501.080 ####[facility] [address] [place], [address] Beta-Hydroxbytyrateon 2024 BETA-HYDROXYBUT 0.5 mmol/L High 0.0-0.3 [facility] Comment on above: Performed By: #### L 501.6901 ####[facility] [address] [place], [address] BETA-HYDROXYBUT 0.6 mmol/L High 0.0-0.3 [facility] Comment on above: Performed By: #### L 500.2500, L501.6901 ####[facility] [address] [place], [address] BETA-HYDROXYBUT 0.1 mmol/L Normal 0.0-0.3 [facility] Comment on above: Performed By: #### L 501.6901 ####[facility] [address] [place], [address] Beta-hydroxybutyrateOrdered By: Poli Barfield on 12-31-2024 Beta hydroxybutyrate [Mass/Vol] 0.5 mmol/L High 0.0-0.3 [facility] Beta-hydroxybutyrateOrdered By: Dewayne Duff on 12-31-2024 Beta hydroxybutyrate [Mass/Vol] 0.1 mmol/L 0.0-0.3 [facility] Bilirubin Test strip Ql (U)O rdered By: Poli Barfield on 12-31-2024 Bilirubin Ql (U) Negative Negative [facility] CBC W/Diff, Automatedon 12-11 Absolute Lymph 2.74 X10 3/uL Normal 0.83-4.51 [facility] Comment on above: Performed By: #### L 100.0100 ####[facility] [address] [place], [address] Absolute Neut 6.4 X10 3/uL Normal 2.0-7.7 [facility] Comment on above: Performed By: #### L 100.0100 ####[facility] [address] [place], [address] Basophils/100 WBC (Bld) 0.5 % Normal 0-1 [facility] Comment on above: Performed By: #### L 100.0100 ####[facility] [address] [place], [address] Eosinophils/100 WBC (Bld) 0.3 % Normal 0-5 [facility] Comment on above: Performed By: #### L 100.0100 ####[facility] [address] [place], [address] Erythrocyte distribution width (RBC) [Ratio] 14.3 % Normal 11.6-14.6 [facility] Comment on above: Performed By: #### L 100.0100 ####[facility] [address] [place], [address] Hematocrit (Bld) [Volume fraction] 38.0 % Normal 37-47 [facility] Comment on above: Performed By: #### L 100.0100 ####[facility] [address] [place], [address] Hemoglobin (Bld) [Mass/Vol] 12.4 g/dL Normal 12.0-15.0 [facility] Comment on above: Performed By: #### L 100.0100 ####[facility] [address] [place], [address] IG% 0.700 Normal 0.0-0.9 [facility] Comment on above: Result Comment: IG% - Immature Granulocytes (promyelocytes, myelocytes andmetamyelocytes) > 1% indicates that a LEFT SHIFT is Present. Performed By: #### L 100.0100 ####[facility] [address] [place], [address] Lymphocytes/100 WBC (Bld) 27.7 % Normal 19-41 [facility] Comment on above: Performed By: #### L 100.0100 ####[facility] [address] [place], [address] MCH (RBC) [Entitic mass] 27.4 pg Normal 27.0-32.0 [facility] Comment on above: Performed By: #### L 100.0100 ####[facility] [address] [place], [address] MCHC (RBC) [Mass/Vol] 32.6 g/dL Normal 32-36 [facility] Comment on above: Performed By: #### L 100.0100 ####[facility] [address] [place], [address] MCV (RBC) [Entitic vol] 83.9 fL Normal 81-99 [facility] Comment on above: Performed By: #### L 100.0100 ####[facility] [address] [place], [address] Monocytes/100 WBC (Bld) 6.4 % Normal 0-10 [facility] Comment on above: Performed By: #### L 100.0100 ####[facility] [address] [place], [address] Neutrophils/100 WBC (Bld) 64.4 % Normal 47-70 [facility] Comment on above: Performed By: #### L 100.0100 ####[facility] [address] [place], [address] Nucleated RBC (Bld) [#/Vol] 0 10*3/uL Normal 0-5 [facility] Comment on above: Performed By: #### L 100.0100 ####[facility] [address] [place], [address] Platelet mean volume (Bld) [Entitic vol] 9.5 fL Normal 6.2-12.0 [facility] Comment on above: Performed By: #### L 100.0100 ####[facility] [address] [place], [address] Platelets (Bld) [#/Vol] 400 10*3/uL Normal 150-450 [facility] Comment on above: Performed By: #### L 100.0100 ####[facility] [address] [place], [address] RBC (Bld) [#/Vol] 4.53 10*6/uL Normal 4.2-5.4 [facility] Comment on above: Performed By: #### L 100.0100 ####[facility] [address] [place], [address] RDW SD 43.4 fl Normal 35.1-43.9 [facility] Comment on above: Performed By: #### L 100.0100 ####[facility] [address] [place], [address] WBC (Bld) [#/Vol] 9.9 10*3/uL Normal 4.4-11.0 [facility] Comment on above: Performed By: #### L 100.0100 ####[facility] [address] [place], [address] Absolute Neut Normal 2.0-7.7 [facility] Comment on above: Result Comment: ERASTO ENT DISCHARGED Performed By: #### L 100.0100 ####[facility] [address] [place], [address] HCT Normal 37-47 [facility] Comment on above: Result Comment: ERASTO ENT DISCHARGED Performed By: #### L 100.0100 ####[facility] [address] [place], [address] HGB Normal 12.0-15.0 [facility] Comment on above: Result Comment: ERASTO ENT DISCHARGED Performed By: #### L 100.0100 ####[facility] [address] [place], [address] MCH Normal 27.0-32.0 [facility] Comment on above: Result Comment: ERASTO ENT DISCHARGED Performed By: #### L 100.0100 ####[facility] [address] [place], [address] MCHC Normal 32-36 [facility] Comment on above: Result Comment: ERASTO ENT DISCHARGED Performed By: #### L 100.0100 ####[facility] [address] [place], [address] MCV Normal 81-99 [facility] Comment on above: Result Comment: ERASTO ENT DISCHARGED Performed By: #### L 100.0100 ####[facility] [address] [place], [address] NEUT% Normal 47-70 [facility] Comment on above: Result Comment: ERASTO ENT DISCHARGED Performed By: #### L 100.0100 ####[facility] [address] [place], [address] PLT Normal 150-450 [facility] Comment on above: Result Comment: ERASTO ENT DISCHARGED Performed By: #### L 100.0100 ####[facility] [address] [place], [address] RBC Normal 4.2-5.4 [facility] Comment on above: Result Comment: ERASTO ENT DISCHARGED Performed By: #### L 100.0100 ####[facility] [address] [place], [address] RDW CV Normal 11.6-14.6 [facility] Comment on above: Result Comment: ERASTO ENT DISCHARGED Performed By: #### L 100.0100 ####[facility] [address] [place], [address] RDW SD Normal 35.1-43.9 [facility] Comment on above: Result Comment: ERASTO ENT DISCHARGED Performed By: #### L 100.0100 ####[facility] [address] [place], [address] WBC Normal 4.4-11.0 [facility] Comment on above: Result Comment: ERASTO ENT DISCHARGED Performed By: #### L 100.0100 ####[facility] [address] [place], [address] CO2 (BldV) [Moles/Vol]Ordere d By: Poli Barfield on 12-31-2024 CO2 [Moles/Vol] 25 mmol/L 23-33 [facility] Carbon dioxide, total [Moles /volume] in Central venous bloodOrdered By: Poli Barfield on 12-31-2024 CO2 [Moles/Vol] 18.2 mmol/L Low 21.0-32.0 [facility] Carbon dioxide, total [Moles /volume] in Central venous bloodOrdered By: David Bain on 12-31-2024 CO2 [Moles/Vol] 21.3 mmol/L 21.0-32.0 [facility] Chloride assayOrdered By: Demetrio Barfield on 12-31-2024 Chloride [Moles/Vol] 108 mmol/L 98-108 [facility] Chloride assayOrdered By: Dwaine Bain on 12-31-2024 Chloride [Moles/Vol] 106 mmol/L 98-108 [facility] Emergency Department Summary on 12-31-2024 Emergency Department Summary Normal [facility] Eosinophil percentageOrdered By: Poli Barfield on 12-31-2024 Eosinophils/100 WBC (Bld) 0.3 % 0-5 [facility] Erythrocyte distribution wid th ratioOrdered By: Poli Barfield on 12-31-2024 Erythrocyte distribution width (RBC) [Ratio] 14.3 % 11.6-14.6 [facility] Erythrocyte distribution wid th standard deviationOrdered By: Poli Barfield on 12-31-2024 Erythrocyte distribution width (RBC) [Ratio] 43.4 fl 35.1-43.9 [facility] Glomerular filtration rate ( GFR) estimation/1.73 sq m using serum, plasma, or whole bOrdered By: Poli Barfield on 12-31-2024 GFR/1.73 sq M.predicted among non-blacks MDRD (S/P/Bld) [Vol rate/Area] 93 mL/min/{1.73_m2} >60 [facility] Glomerular filtration rate ( GFR) estimation/1.73 sq m using serum, plasma, or whole bOrdered By: David Bain on 12-31-2024 GFR/1.73 sq M.predicted among non-blacks MDRD (S/P/Bld) [Vol rate/Area] 97 mL/min/{1.73_m2} >60 [facility] Comment on above: mL/min/1.73m2 CKD-EP I Creatinine Equation (2020) [facility] deOrdered By: Poli Barfield on 12-31-2024 Glucose [Mass/Vol] 169 mg/dL High 74-106 [facility] deOrdered By: David Bain on 12-31-2024 Glucose [Mass/Vol] 147 mg/dL High 74-106 [facility] Comment on above: MANAGEMENT OF PATIEN T CARE PER NURSING PROTOCOL H AND P Exam - Hospitaliston 12-31-2024 H&P Exam - Hospitalist Normal [facility] [place] Hematocrit Auto (Bld) [Volum e fraction]Ordered By: Poli Barfield on 12-31-2024 Hematocrit (Bld) [Volume fraction] 38.0 % 37-47 [facility] Hemoglobin A1con 12-31-2024 HbA1c (Bld) [Mass fraction] 8.5 % High <=5.6 [facility] Comment on above: Result Comment: Norm al < 5.7 % Prediabetic 5.7 - 6.4 % Diabetic >or= 6.5 % Please note range changes. Performed By: #### L 501.9928 ####[facility] [address] [place], [address] Hemoglobin A1c percentageOrd ered By: David Bain on 12-31-2024 HbA1c (Bld) [Mass fraction] 8.5 % High <5.7 [facility] Comment on above: Normal < 5.7 % Predi abetic 5.7 - 6.4 % Diabetic >or= 6.5 % Please note range changes. Hemoglobin measurementOrdere d By: Poli Barfield on 12-31-2024 Hemoglobin (Bld) [Mass/Vol] 12.4 g/dL 12.0-15.0 [facility] Immature granulocytes/100 WB C Auto (Bld)Ordered By: Poli Barfield on 12-31-2024 Immature granulocytes/100 WBC (Bld) 0.700 % 0.0-0.9 [facility] Ketones Test strip Ql (U)Ord ered By: Poli Barfield on 12-31-2024 Ketones Ql (U) 5 mg/dl High Negative [facility] MCV (mean corpuscular volume ) determinationOrdered By: Poli Barfield on 12-31-2024 MCV (RBC) [Entitic vol] 83.9 fL 81-99 [facility] Magnesiumon 12-31-2024 Magnesium [Mass/Vol] 1.5 mg/dL Normal 1.5-2.2 [facility] Comment on above: Performed By: #### L 501.5200, L501.9520 ####[facility] [address] [place], [place], [address] Magnesium measurement (mass/ volume)Ordered By: Dewayne Duff on 12-31-2024 Magnesium (Unsp spec) [Mass/Vol] 1.5 mg/dL 1.5-2.2 [facility] Mean corpuscular hemoglobin (MCH) determinationOrdered By: Poli Barfield on 12-31-2024 MCH (RBC) [Entitic mass] 27.4 pg 27.0-32.0 [facility] Monocyte percentageOrdered B y: Poli Barfield on 12-31-2024 Monocytes/100 WBC (Bld) 6.4 % 0-10 [facility] Mucus LM Ql (Urine sed)Order ed By: Poli Barfield on 12-31-2024 Mucus Ql (Urine sed) 0 SEEN /hpf [facility] Neutrophil percentageOrdered By: Poli Barfield on 12-31-2024 Neutrophils/100 WBC (Bld) 64.4 % 47-70 [facility] Nitrite Test strip Ql (U)Ord ered By: Poli Barfield on 12-31-2024 Nitrite Ql (U) Negative Negative [facility] No Panel InformationOrdered By: Poli Barfield on 12-31-2024 ESTRELLA [facility] Not entered [facility] Room Air [facility] Platelet countOrdered By: Demetrio Barfield on 12-31-2024 Platelets (Bld) [#/Vol] 400 10*3/uL 150-450 [facility] Potassium measurement (mass/ volume)Ordered By: Poli Barfield on 12-31-2024 Potassium (Unsp spec) [Mass/Vol] 3.7 mmol/L 3.3-5.1 [facility] Potassium measurement (mass/ volume)Ordered By: David Bain on 12-31-2024 Potassium (Unsp spec) [Mass/Vol] 3.6 mmol/L 3.3-5.1 [facility] ,Urineon 12-31-2024 Beta HCG ( test) Ql (U) Negative Normal [facility] Comment on above: Result Comment: Very dilute urine specimens, as indicated by a low specificgravity, may not contain underwriting sales representative levels of hCG.If is still suspected, a first morning urinespecimen should be collected 48 hours later and tested. Performed By: #### L 400.7600 ####[facility] [address] [place], [address] Protein Test strip Ql (U)Ord ered By: Poli Barfield on 12-31-2024 Protein Ql (U) 30 mg/dl High Negative [facility] RBC Auto (Bld) [#/Vol]Ordere d By: Poli Barfield on 12-31-2024 RBC (Bld) [#/Vol] 4.53 10*6/uL 4.2-5.4 [facility] Serum creatinine measurement (mass/volume)Ordered By: Poli Barfield on 12-31-2024 Creatinine [Mass/Vol] 0.85 mg/dL 0.70-1.20 [facility] Serum creatinine measurement (mass/volume)Ordered By: David Bain on 12-31-2024 Creatinine [Mass/Vol] 0.82 mg/dL 0.70-1.20 [facility] Serum glucose measurement (m ass/volume)Ordered By: Poli Barfield on 12-31-2024 Glucose [Mass/Vol] 177 mg/dL High 70-99 [facility] Serum glucose measurement (m ass/volume)Ordered By: David Bain on 12-31-2024 Glucose [Mass/Vol] 129 mg/dL High 70-99 [facility] Serum or plasma calcium hussein urement (mass/volume)Ordered By: Poli Barfield on 12-31-2024 Calcium [Mass/Vol] 8.2 mg/dL 7.6-11.0 [facility] Serum or plasma calcium hussein urement (mass/volume)Ordered By: David Bain on 12-31-2024 Calcium [Mass/Vol] 8.2 mg/dL 7.6-11.0 [facility] Serum or plasma urea nitroge n measurement (mass/volume)Ordered By: Poli Barfield on 12-31-2024 Urea nitrogen [Mass/Vol] 7 mg/dL 10-28 [facility] Serum or plasma urea nitroge n measurement (mass/volume)Ordered By: David Bain on 12-31-2024 Urea nitrogen [Mass/Vol] 8 mg/dL 4- [facility] Sodium levelOrdered By: Poli Barfield on 12-31-2024 Sodium [Moles/Vol] 139 mmol/L 133-145 [facility] Sodium levelOrdered By: Darnell Bain on 12-31-2024 Sodium [Moles/Vol] 138 mmol/L 133-145 [facility] Squamous epithelial cells de tection in urine sediment by light microscopyOrdered By: Poli Barfield on 12-31-2024 Epithelial cells.squamous LM Ql (Urine sed) 0-5 SEEN /hpf 5-10 [facility] TSH DL <= 0.005 mIU/L QnOrde red By: Dewayne Duff on 12-31-2024 TSH Qn 0.649 uIU/mL 0.300-4.200 [facility] Thyroid Stim Hormone (TSH)on 12-31-2024 TSH 0.649 uIU/mL Normal 0.300-4.200 [facility] Comment on above: Performed By: #### L 501.5200, L501.9520 ####[facility] [address] [place], [address] Urinalysis, Completeon 12-31 BACTERIA 3+ /hpf Normal None Seen [facility] Comment on above: Order Comment: CLEAN CATCH Performed By: #### L 400.0001 ####[facility] [address] [place], [address] EPI,SQUAMOUS 0-5 SEEN Normal 5-10 [facility] Comment on above: Order Comment: CLEAN CATCH Performed By: #### L 400.0001 ####[facility] [address] [place], [address] WBC 0-5 SEEN Normal 0-5 [facility] Comment on above: Order Comment: CLEAN CATCH Performed By: #### L 400.0001 ####[facility] [address] [place], [address] Mucus Ql (Urine sed) 0 SEEN Normal [facility] Comment on above: Order Comment: CLEAN CATCH Performed By: #### L 400.0001 ####[facility] [address] [place], [address] RBC 0 SEEN Normal 0-5 [facility] Comment on above: Order Comment: CLEAN CATCH Performed By: #### L 400.0001 ####[facility] [address] [place], [address] Urine clarityOrdered By: Devon Barfield on 12-31-2024 Clarity (U) Cloudy Clear [facility] Urine color determinationOrd ered By: Poli Barfield on 12-31-2024 Color (U) Yellow Yellow [facility] Urine glucose detectionOrder ed By: Poli Barfield on 12-31-2024 Glucose Ql (U) Normal mg/dl Normal [facility] Urine leukocyte esterase det ection by dipstickOrdered By: Poli Barfield on 12-31-2024 Leukocyte esterase Test strip Ql (U) 100 /ul High Negative [facility] Urine pHOrdered By: Poli Barfield on 12-31-2024 pH (U) 6.0 [pH] 5.0 - 8.0 [facility] Urine testOrdered By: Dewayne Duff on 12-31-2024 HCG ( test) Ql (U) Negative [facility] Urine sediment bacteria coun t by microscopy (number/high power field)Ordered By: Poli Barfield on 12-31-2024 Bacteria LM.HPF (Urine sed) [#/Area] 3 /[HPF] None Seen [facility] Urine specific gravity measu rementOrdered By: Poli Barfield on 12-31-2024 Specific gravity (U) [Rel density] 1.020 1.002-1.030 [facility] Urine urobilinogen measureme ntOrdered By: Poli Barfield on 12-31-2024 Urobilinogen Ql (U) Normal mg/dl Normal [facility] Venous Blood Gason Blood Gas Type ESTRELLA Normal [facility] Comment on above: Performed By: #### L 8999.0810 ####[facility] [address] [place], [address] CO2 [Moles/Vol] 25 mmol/L Normal 23-33 [facility] Comment on above: Performed By: #### L 0.0810 ####[facility] [address] [place], [address] HCO3 (Bld) [Moles/Vol] 24 mmol/L Normal 22-26 [facility] Comment on above: Performed By: #### L 900.0810 ####[facility] [address] [place], [address] O2 Delivery Dev Room Air Normal [facility] Comment on above: Performed By: #### L 8999.0810 ####[facility] [address] [place], [address] SITE Not entered Normal [facility] Comment on above: Performed By: #### L 8999.0810 ####[facility] [address] [place], [address] VBG BE 0 mmol/L Normal -1.0-3.5 [facility] Comment on above: Performed By: #### L 9000.0810 ####[facility] [address] [place], [address] VBG pCO2 30.7 mmHg Low 41-51 [facility] Comment on above: Performed By: #### L 9000.0810 ####[facility] [address] [place], [address] VBG pH 7.49 High 7.32-7.42 [facility] Comment on above: Performed By: #### L 9000.0810 ####[facility] [address] [place], [address] VBG PO2 22 mmHg Low 25-40 [facility] Comment on above: Performed By: #### L 9000.0810 ####[facility] [address] [place], [address] VBG SO2 43 Low 50-70 [facility] Comment on above: Performed By: #### L 9000.0810 ####[facility] [address] [place], [address] Venous blood base excess kedar surementOrdered By: Poli Barfield on 12-31-2024 Base excess Calc (BldV) [Moles/Vol] 0 mmol/L -1.0-3.5 [facility] Venous blood bicarbonate kedar surementOrdered By: Poli Barfield on 12-31-2024 HCO3 (Bld) [Moles/Vol] 24 mmol/L - [facility] Venous blood pH measurementO rdered By: Poli Barfield on 12-31-2024 pH (BldV) 7.49 [pH] High 7.32-7.42 [facility] Venous blood partial pressur e of carbon dioxide measurementOrdered By: Poli Barfield on 12-31-2024 CO2 (BldV) [Partial pressure] 30.7 mm[Hg] Low 41-51 [facility] Venous blood partial pressur e of oxygen measurementOrdered By: Poli Barfield on 12-31-2024 Oxygen (BldV) [Partial pressure] 22 mm[Hg] Low 25-40 [facility] White blood cell (WBC) count Ordered By: Poli Barfield on 12-31-2024 WBC (Bld) [#/Vol] 9.9 10*3/uL 4.4-11.0 [facility] White blood cell countOrdere d By: Poli Barfield on 12-31-2024 White blood cell count 0-5 SEEN /hpf 0-5 [facility] Absolute lymphocyte countOrd ered By: Poli Barfield on 12-30-2024 Lymphocytes Auto (Unsp spec) [#/Vol] 3.14 10*3/uL 0.83-4.51 [facility] Absolute neutrophil countOrd ered By: Poli Barfield on 12-30-2024 Neutrophils (Bld) [#/Vol] 9.4 10*3/uL High 2.0-7.7 [facility] Amphetamine detection with 1 000 ng/mL as cutoffOrdered By: Poli Barfield on 12-30-2024 Amphetamines Screen method >1000 ng/mL Ql (U) Negative < 200 ng/mL [facility] Anion gap in Serum or Plasma Ordered By: Poli Barfield on 12-30-2024 Anion gap [Moles/Vol] 20 mmol/L High 5-15 [facility] Automated lymphocyte count a s percentage of total leukocytesOrdered By: Poli Barfield on 12-30-2024 Lymphocytes/100 WBC Auto (Unsp spec) 23.6 % 19- [facility] BUN/creatinine ratioOrdered By: Poli Barfield on 12-30-2024 Urea nitrogen/Creatinine [Mass ratio] 11.1 mg/mg 04-30 [facility] Basic Metabolic Profile (BMP )on 12-30-2024 BUN/CRE 11.9 RATIO Normal 04-30 [facility] Comment on above: Order Comment: Call MD with results STAT Performed By: #### L 500.2500 ####[facility] [address] [place], [address] Calcium [Mass/Vol] 8.1 mg/dL Normal 7.6-11.0 [facility] Comment on above: Order Comment: Call MD with results STAT Performed By: #### L 500.2500 ####[facility] [address] [place], [address] Chloride [Moles/Vol] 106 mmol/L Normal 98-108 [facility] Comment on above: Order Comment: Call MD with results STAT Performed By: #### L 500.2500 ####[facility] [address] [place], [address] CO2 [Moles/Vol] 21.8 mmol/L Normal 21.0-32.0 [facility] Comment on above: Order Comment: Call MD with results STAT Performed By: #### L 500.2500 ####[facility] [address] [place], [address] Creatinine [Mass/Vol] 0.83 mg/dL Normal 0.70-1.20 [facility] Comment on above: Order Comment: Call MD with results STAT Performed By: #### L 500.2500 ####[facility] [address] [place], [address] ECRCL 120.96 ml/min Normal 50-250 [facility] Comment on above: Order Comment: Call MD with results STAT Performed By: #### L 500.2500 ####[facility] [address] [place], [address] GAP 13 Normal 5-15 [facility] Comment on above: Order Comment: Call MD with results STAT Performed By: #### L 500.2500 ####[facility] [address] [place], [address] GFR/1.73 sq M.predicted among non-blacks MDRD (S/P/Bld) [Vol rate/Area] 96 mL/min/{1.73_m2} Normal >60 [facility] Comment on above: Order Comment: Call MD with results STAT Result Comment: mL/m in/1.73m2 CKD-EPI Creatinine Equation (2020) Performed By: #### L 500.2500 ####[facility] [address] [place], [address] Glucose [Mass/Vol] 109 mg/dL High 70-99 [facility] Comment on above: Order Comment: Call MD with results STAT Performed By: #### L 500.2500 ####[facility] [address] [place], [address] Potassium [Moles/Vol] 3.4 mmol/L Normal 3.3-5.1 [facility] Comment on above: Order Comment: Call MD with results STAT Result Comment: Hemo lysis present, Results??could be affected.?? Performed By: #### L 500.2500 ####[facility] [address] [place], [address] Sodium [Moles/Vol] 141 mmol/L Normal 133-145 [facility] Comment on above: Order Comment: Call MD with results STAT Performed By: #### L 500.2500 ####[facility] [address] [place], [address] Urea nitrogen [Mass/Vol] 10 mg/dL Normal 4-19 [facility] Comment on above: Order Comment: Call MD with results STAT Performed By: #### L 500.2500 ####[facility] [address] [place], [address] BUN/CRE 11.9 RATIO Normal 10-20 [facility] Comment on above: Order Comment: Call MD with results STAT Performed By: #### L 500.2500 ####[facility] [address] [place], [address] Calcium [Mass/Vol] 8.1 mg/dL Normal 7.6-11.0 [facility] Comment on above: Order Comment: Call MD with results STAT Performed By: #### L 500.2500 ####[facility] [address] [place], [address] Chloride [Moles/Vol] 104 mmol/L Normal 98-108 [facility] Comment on above: Order Comment: Call MD with results STAT Performed By: #### L 500.2500 ####[facility] [address] [place], [address] CO2 [Moles/Vol] 24.0 mmol/L Normal 21.0-32.0 [facility] Comment on above: Order Comment: Call MD with results STAT Performed By: #### L 500.2500 ####[facility] [address] [place], [address] Creatinine [Mass/Vol] 0.94 mg/dL Normal 0.70-1.20 [facility] Comment on above: Order Comment: Call MD with results STAT Performed By: #### L 500.2500 ####[facility] [address] [place], [address] ECRCL 106.80 ml/min Normal 50-250 [facility] Comment on above: Order Comment: Call MD with results STAT Performed By: #### L 500.2500 ####[facility] [address] [place], [address] GAP 11 Normal 5-15 [facility] Comment on above: Order Comment: Call MD with results STAT Performed By: #### L 500.2500 ####[facility] [address] [place], [address] GFR/1.73 sq M.predicted among non-blacks MDRD (S/P/Bld) [Vol rate/Area] 83 mL/min/{1.73_m2} Normal >60 [facility] Comment on above: Order Comment: Call MD with results STAT Result Comment: mL/m in/1.73m2 CKD-EPI Creatinine Equation (2020) Performed By: #### L 500.2500 ####[facility] [address] [place], [address] Glucose [Mass/Vol] 185 mg/dL High 70-99 [facility] Comment on above: Order Comment: Call MD with results STAT Performed By: #### L 500.2500 ####[facility] [address] [place], [address] Potassium [Moles/Vol] 3.5 mmol/L Normal 3.3-5.1 [facility] Comment on above: Order Comment: Call MD with results STAT Performed By: #### L 500.2500 ####[facility] [address] [place], [address] Sodium [Moles/Vol] 139 mmol/L Normal 133-145 [facility] Comment on above: Order Comment: Call MD with results STAT Performed By: #### L 500.2500 ####[facility] [address] [place], [address] Urea nitrogen [Mass/Vol] 11 mg/dL Normal 4-19 [facility] Comment on above: Order Comment: Call MD with results STAT Performed By: #### L 500.2500 ####[facility] [address] [place], [address] BUN/CRE 12.1 RATIO Normal 10-20 [facility] Comment on above: Order Comment: Call MD with results STAT Performed By: #### L 500.2500 ####[facility] [address] [place], [address] Calcium [Mass/Vol] 8.6 mg/dL Normal 7.6-11.0 [facility] Comment on above: Order Comment: Call MD with results STAT Performed By: #### L 500.2500 ####[facility] [address] [place], [address] Chloride [Moles/Vol] 104 mmol/L Normal 98-108 [facility] Comment on above: Order Comment: Call MD with results STAT Performed By: #### L 500.2500 ####[facility] [address] [place], [address] CO2 [Moles/Vol] 24.0 mmol/L Normal 21.0-32.0 [facility] Comment on above: Order Comment: Call MD with results STAT Performed By: #### L 500.2500 ####[facility] [address] [place], [address] Creatinine [Mass/Vol] 1.03 mg/dL Normal 0.70-1.20 [facility] Comment on above: Order Comment: Call MD with results STAT Performed By: #### L 500.2500 ####[facility] [address] [place], [address] ECRCL 97.47 ml/min Normal 50-250 [facility] Comment on above: Order Comment: Call MD with results STAT Performed By: #### L 500.2500 ####[facility] [address] [place], [address] GAP 13 Normal 5-15 [facility] Comment on above: Order Comment: Call MD with results STAT Performed By: #### L 500.2500 ####[facility] [address] [place], [address] GFR/1.73 sq M.predicted among non-blacks MDRD (S/P/Bld) [Vol rate/Area] 74 mL/min/{1.73_m2} Normal >60 [facility] Comment on above: Order Comment: Call MD with results STAT Result Comment: mL/m in/1.73m2 CKD-EPI Creatinine Equation (2020) Performed By: #### L 500.2500 ####[facility] [address] [place], [address] Glucose [Mass/Vol] 133 mg/dL High 70-99 [facility] Comment on above: Order Comment: Call MD with results STAT Performed By: #### L 500.2500 ####[facility] [address] [place], [address] Potassium [Moles/Vol] 3.4 mmol/L Normal 3.3-5.1 [facility] Comment on above: Order Comment: Call MD with results STAT Performed By: #### L 500.2500 ####[facility] [address] [place], [address] Sodium [Moles/Vol] 141 mmol/L Normal 133-145 [facility] Comment on above: Order Comment: Call MD with results STAT Performed By: #### L 500.2500 ####[facility] [address] [place], [address] Urea nitrogen [Mass/Vol] 13 mg/dL Normal 4-19 [facility] Comment on above: Order Comment: Call MD with results STAT Performed By: #### L 500.2500 ####[facility] [address] [place], [address] BUN Normal 4-19 [facility] Comment on above: Result Comment: DUPL ICATE Performed By: #### L 500.2500 ####[facility] [address] [place], [address] Performed By: #### L 500.2500, L100.0100 ####[facility] [address] [place], [address] BUN/CRE Normal 10-20 [facility] Comment on above: Result Comment: DUPL ICATE Performed By: #### L 500.2500 ####[facility] [address] [place], [address] Performed By: #### L 500.2500, L100.0100 ####[facility] [address] [place], [address] Calcium Normal 7.6-11.0 [facility] Comment on above: Result Comment: DUPL ICATE Performed By: #### L 500.2500 ####[facility] [address] [place], [address] Performed By: #### L 500.2500, L100.0100 ####[facility] [address] [place], [address] CL Normal 98-108 [facility] Comment on above: Result Comment: DUPL ICATE Performed By: #### L 500.2500 ####[facility] [address] [place], [address] Performed By: #### L 500.2500, L100.0100 ####[facility] [address] [place], [address] CO2 Normal 21.0-32.0 [facility] Comment on above: Result Comment: DUPL ICATE Performed By: #### L 500.2500 ####[facility] [address] [place], [address] Performed By: #### L 500.2500, L100.0100 ####[facility] [address] [place], [address] CREAT,SERUM Normal 0.70-1.20 [facility] Comment on above: Result Comment: DUPL ICATE Performed By: #### L 500.2500 ####[facility] [address] [place], [address] Performed By: #### L 500.2500, L100.0100 ####[facility] [address] [place], [address] eGFR Normal >60 [facility] Comment on above: Result Comment: DUPL ICATE Performed By: #### L 500.2500 ####[facility] [address] [place], [address] Performed By: #### L 500.2500, L100.0100 ####[facility] [address] [place], [address] GAP Normal 5-15 [facility] Comment on above: Result Comment: DUPL ICATE Performed By: #### L 500.2500 ####[facility] [address] [place], [address] Performed By: #### L 500.2500, L100.0100 ####[facility] [address] [place], [address] GLU Normal 70-99 [facility] Comment on above: Result Comment: DUPL ICATE Performed By: #### L 500.2500 ####[facility] [address] [place], [address] Performed By: #### L 500.2500, L100.0100 ####[facility] [address] [place], [address] Potassium Normal 3.3-5.1 [facility] Comment on above: Result Comment: DUPL ICATE Performed By: #### L 500.2500 ####[facility] [address] [place], [address] Performed By: #### L 500.2500, L100.0100 ####[facility] [address] [place], [address] Basic Metabolic Profile (BMP) Normal 133-145 [facility] Comment on above: Result Comment: DUPL ICATE Performed By: #### L 500.2500 ####[facility] [address] [place], [address] Performed By: #### L 500.2500, L100.0100 ####[facility] [address] [place], [address] Basophil percentageOrdered B y: Poli Barfield on 12-30-2024 Basophils/100 WBC (Bld) 0.3 % 0-1 [facility] Bedside Glucoseon 12-30-2024 FINGERSTICK GLU 135 mg/dL High 74-106 [facility] Comment on above: Result Comment: BULL GEMENT OF PATIENT CARE PER NURSING PROTOCOL Performed By: #### L 501.080 ####[facility] [address] [place], [address] FINGERSTICK GLU 109 mg/dL High -106 [facility] Comment on above: Result Comment: BULL GEMENT OF PATIENT CARE PER NURSING PROTOCOL Performed By: #### L 501.080 ####[facility] [address] [place], [address] FINGERSTICK GLU 96 mg/dL Normal -[address] [place] [address] Comment on above: Result Comment: BULL GEMENT OF PATIENT CARE PER NURSING PROTOCOL Performed By: #### L 501.080 ####[facility] [address] [place], [address] FINGERSTICK GLU 108 mg/dL High [facility]106 [facility] Comment on above: Result Comment: BULL GEMENT OF PATIENT CARE PER NURSING PROTOCOL Performed By: #### L 501.080 ####[facility] [address] [place], [address] FINGERSTICK GLU 179 mg/dL High [facility]106 [facility] Comment on above: Result Comment: BULL GEMENT OF PATIENT CARE PER NURSING PROTOCOL Performed By: #### L 501.080 ####[facility] [address] [place], [address] FINGERSTICK GLU 167 mg/dL High [facility]106 [facility] Comment on above: Result Comment: BULL GEMENT OF PATIENT CARE PER NURSING PROTOCOL Performed By: #### L 501.080 ####[facility] [address] [place], [address] FINGERSTICK GLU 131 mg/dL High 74-106 [facility] Comment on above: Result Comment: BULL GEMENT OF PATIENT CARE PER NURSING PROTOCOL Performed By: #### L 501.080 ####[facility] [address] [place], [address] FINGER[place]ICK GLU 99 mg/dL Normal 74-106 [facility] Comment on above: Result Comment: BULL GEMENT OF PATIENT CARE PER NURSING PROTOCOL Performed By: #### L 501.080 ####[facility] [address] [place], [address] FINGERSTICK GLU 129 mg/dL High 74-106 [facility] Comment on above: Result Comment: BULL GEMENT OF PATIENT CARE PER NURSING PROTOCOL Performed By: #### L 501.080 ####[facility] [address] [place], [address] Beta-Hydroxbytyrateon 2024 BETA-HYDROXYBUT 0.6 mmol/L High 0.0-0.3 [facility] Comment on above: Performed By: #### L 501.6901 ####[facility] [address] [place], [address] BETA-HYDROXYBUT 0.3 mmol/L Normal 0.0-0.3 [facility] Comment on above: Performed By: #### L 501.6901 ####[facility] [address] [place], [address] Bilirubin Test strip Ql (U)O rdered By: Poli Barfield on 12-30-2024 Bilirubin Ql (U) 3 mg/dL High Negative [facility] Comment on above: COLOR OF URINE MAY A FFECT DIPSTICK RESULTS. Bilirubin, totalOrdered By: Poli Barfield on 12-30-2024 Bilirubin [Mass/Vol] 0.65 mg/dL 0.00-1.30 [facility] CBC W/Diff, Automatedon - Absolute Neut Normal 2.0-7.7 [facility] Comment on above: Result Comment: DUPL ICATE Performed By: #### L 500.2500, L100.0100 ####[facility] [address] [place], [address] HCT Normal 37-47 [facility] Comment on above: Result Comment: DUPL ICATE Performed By: #### L 500.2500, L100.0100 ####[facility] [address] [place], [address] HGB Normal 12.0-15.0 [facility] Comment on above: Result Comment: DUPL ICATE Performed By: #### L 500.2500, L100.0100 ####[facility] [address] [place], [address] MCH Normal 27.0-32.0 [facility] Comment on above: Result Comment: DUPL ICATE Performed By: #### L 500.2500, L100.0100 ####[facility] [address] [place], [address] MCHC Normal 32-36 [facility] Comment on above: Result Comment: DUPL ICATE Performed By: #### L 500.2500, L100.0100 ####[facility] [address] [place], [address] MCV Normal 81-99 [facility] Comment on above: Result Comment: DUPL ICATE Performed By: #### L 500.2500, L100.0100 ####[facility] [address] [place], [address] NEUT% Normal 47-70 [facility] Comment on above: Result Comment: DUPL ICATE Performed By: #### L 500.2500, L100.0100 ####[facility] [address] [place], [address] PLT Normal 150-450 [facility] Comment on above: Result Comment: DUPL ICATE Performed By: #### L 500.2500, L100.0100 ####[facility] [address] [place], [address] RBC Normal 4.2-5.4 [facility] Comment on above: Result Comment: DUPL ICATE Performed By: #### L 500.2500, L100.0100 ####[facility] [address] [place], [address] RDW CV Normal 11.6-14.6 [facility] Comment on above: Result Comment: DUPL ICATE Performed By: #### L 500.2500, L100.0100 ####[facility] [address] [place], [address] RDW SD Normal 35.1-43.9 [facility] Comment on above: Result Comment: DUPL ICATE Performed By: #### L 500.2500, L100.0100 ####[facility] [address] [place], [address] WBC Normal 4.4-11.0 [facility] Comment on above: Result Comment: DUPL ICATE Performed By: #### L 500.2500, L100.0100 ####[facility] [address] [place], [address] Absolute Lymph 3.14 X10 3/uL Normal 0.83-4.51 [facility] Comment on above: Performed By: #### L 100.0100, L500.4050, L501.2450, L505.5000, L700.6800 ####[facility] [address] [place], [address] Absolute Neut 9.4 X10 3/uL High 2.0-7.7 [facility] Comment on above: Performed By: #### L 100.0100, L500.4050, L501.2450, L505.5000, L700.6800 ####[facility] [address] [place], [address] Basophils/100 WBC (Bld) 0.3 % Normal 0-1 [facility] Comment on above: Performed By: #### L 100.0100, L500.4050, L501.2450, L505.5000, L700.6800 ####[facility] [address] [place], [address] Eosinophils/100 WBC (Bld) 0.0 % Normal 0-5 [facility] Comment on above: Performed By: #### L 100.0100, L500.4050, L501.2450, L505.5000, L700.6800 ####[facility] [address] [place], [address] Erythrocyte distribution width (RBC) [Ratio] 14.3 % Normal 11.6-14.6 [facility] Comment on above: Performed By: #### L 100.0100, L500.4050, L501.2450, L505.5000, L700.6800 ####[facility] [address] [place], [address] Hematocrit (Bld) [Volume fraction] 39.2 % Normal 37-47 [facility] Comment on above: Performed By: #### L 100.0100, L500.4050, L501.2450, L505.5000, L700.6800 ####[facility] [address] [place], [address] Hemoglobin (Bld) [Mass/Vol] 13.2 g/dL Normal 12.0-15.0 [facility] Comment on above: Performed By: #### L 100.0100, L500.4050, L501.2450, L505.5000, L700.6800 ####[facility] [address] [place], [address] IG% 0.600 Normal 0.0-0.9 [facility] Comment on above: Result Comment: IG% - Immature Granulocytes (promyelocytes, myelocytes andmetamyelocytes) > 1% indicates that a LEFT SHIFT is Present. Performed By: #### L 100.0100, L500.4050, L501.2450, L505.5000, L700.6800 ####[facility] [address] [place], [address] Lymphocytes/100 WBC (Bld) 23.6 % Normal 19-41 [facility] Comment on above: Performed By: #### L 100.0100, L500.4050, L501.2450, L505.5000, L700.6800 ####[facility] [address] [place], [address] MCH (RBC) [Entitic mass] 27.6 pg Normal 27.0-32.0 [facility] Comment on above: Performed By: #### L 100.0100, L500.4050, L501.2450, L505.5000, L700.6800 ####[facility] [address] [place], [address] MCHC (RBC) [Mass/Vol] 33.7 g/dL Normal 32-36 [facility] Comment on above: Performed By: #### L 100.0100, L500.4050, L501.2450, L505.5000, L700.6800 ####[facility] [address] [place], [address] MCV (RBC) [Entitic vol] 81.8 fL Normal 81-99 [facility] Comment on above: Performed By: #### L 100.0100, L500.4050, L501.2450, L505.5000, L700.6800 ####[facility] [address] [place], [address] Monocytes/100 WBC (Bld) 4.8 % Normal 0-10 [facility] Comment on above: Performed By: #### L 100.0100, L500.4050, L501.2450, L505.5000, L700.6800 ####[facility] [address] [place], [address] Neutrophils/100 WBC (Bld) 70.7 % High 47-70 [facility] Comment on above: Performed By: #### L 100.0100, L500.4050, L501.2450, L505.5000, L700.6800 ####[facility] [address] [place], [address] Nucleated RBC (Bld) [#/Vol] 0 10*3/uL Normal 0-5 [facility] Comment on above: Performed By: #### L 100.0100, L500.4050, L501.2450, L505.5000, L700.6800 ####[facility] [address] [place], [address] Platelet mean volume (Bld) [Entitic vol] 9.7 fL Normal 6.2-12.0 [facility] Comment on above: Performed By: #### L 100.0100, L500.4050, L501.2450, L505.5000, L700.6800 ####[facility] [address] [place], [address] Platelets (Bld) [#/Vol] 430 10*3/uL Normal 150-450 [facility] Comment on above: Performed By: #### L 100.0100, L500.4050, L501.2450, L505.5000, L700.6800 ####[facility] [address] [place], [address] RBC (Bld) [#/Vol] 4.79 10*6/uL Normal 4.2-5.4 [facility] Comment on above: Performed By: #### L 100.0100, L500.4050, L501.2450, L505.5000, L700.6800 ####[facility] [address] [place], [address] RDW SD 41.4 fl Normal 35.1-43.9 [facility] Comment on above: Performed By: #### L 100.0100, L500.4050, L501.2450, L505.5000, L700.6800 ####[facility] [address] [place], [address] WBC (Bld) [#/Vol] 13.3 10*3/uL High 4.4-11.0 [facility] Comment on above: Performed By: #### L 100.0100, L500.4050, L501.2450, L505.5000, L700.6800 ####[facility] [address] [place], [address] CO2 (BldV) [Moles/Vol]Ordere d By: David Bain on 12-30-2024 CO2 [Moles/Vol] 30 mmol/L 23-33 [facility] Carbon dioxide, total [Moles /volume] in Central venous bloodOrdered By: Poli Barfield on 12-30-2024 CO2 [Moles/Vol] 19.2 mmol/L Low 21.0-32.0 [facility] Chloride assayOrdered By: Demetrio Barfield on 12-30-2024 Chloride [Moles/Vol] 97 mmol/L Low 98-108 [facility] Comprehensive Metabolic Prof ilon 12-30-2024 Albumin [Mass/Vol] 4.2 g/dL Normal 3.5-5.0 [facility] Comment on above: Performed By: #### L 100.0100, L500.4050, L501.2450, L505.5000, L700.6800 ####[facility] [address] [place], [address] Albumin/Globulin [Mass ratio] 0.9 {ratio} Normal 0.9-2.4 [facility] Comment on above: Performed By: #### L 100.0100, L500.4050, L501.2450, L505.5000, L700.6800 ####[facility] [address] [place], [address] ALK PHOS 91 U/L Normal 35-104 [facility] Comment on above: Performed By: #### L 100.0100, L500.4050, L501.2450, L505.5000, L700.6800 ####[facility] [address] [place], [address] ALT [Catalytic activity/Vol] 12 U/L Normal <=34 [facility] Comment on above: Performed By: #### L 100.0100, L500.4050, L501.2450, L505.5000, L700.6800 ####[facility] [address] [place], [address] AST [Catalytic activity/Vol] 16 U/L Normal <=31 [facility] Comment on above: Performed By: #### L 100.0100, L500.4050, L501.2450, L505.5000, L700.6800 ####[facility] [address] [place], [address] Bilirubin [Mass/Vol] 0.65 mg/dL Normal 0.00-1.30 [facility] Comment on above: Performed By: #### L 100.0100, L500.4050, L501.2450, L505.5000, L700.6800 ####[facility] [address] [place], [address] BUN/CRE 11.1 RATIO Normal 10-20 [facility] Comment on above: Performed By: #### L 100.0100, L500.4050, L501.2450, L505.5000, L700.6800 ####[facility] [address] [place], [address] Calcium [Mass/Vol] 9.7 mg/dL Normal 7.6-11.0 [facility] Comment on above: Performed By: #### L 100.0100, L500.4050, L501.2450, L505.5000, L700.6800 ####[facility] [address] [place], [address] Chloride [Moles/Vol] 97 mmol/L Low 98-108 [facility] Comment on above: Performed By: #### L 100.0100, L500.4050, L501.2450, L505.5000, L700.6800 ####[facility] [address] [place], [address] CO2 [Moles/Vol] 19.2 mmol/L Low 21.0-32.0 [facility] Comment on above: Performed By: #### L 100.0100, L500.4050, L501.2450, L505.5000, L700.6800 ####[facility] [address] [place], [address] Creatinine [Mass/Vol] 1.22 mg/dL High 0.70-1.20 [facility] Comment on above: Performed By: #### L 100.0100, L500.4050, L501.2450, L505.5000, L700.6800 ####[facility] [address] [place], [address] ECRCL 81.50 ml/min Normal 50-250 [facility] Comment on above: Performed By: #### L 100.0100, L500.4050, L501.2450, L505.5000, L700.6800 ####[facility] [address] [place], [address] GAP 20 High 5-15 [facility] Comment on above: Performed By: #### L 100.0100, L500.4050, L501.2450, L505.5000, L700.6800 ####[facility] [address] [place], [address] GFR/1.73 sq M.predicted among non-blacks MDRD (S/P/Bld) [Vol rate/Area] 60 mL/min/{1.73_m2} Normal >60 [facility] Comment on above: Result Comment: mL/m in/1.73m2 CKD-EPI Creatinine Equation (2020) Performed By: #### L 100.0100, L500.4050, L501.2450, L505.5000, L700.6800 ####[facility] [address] [place], [address] Globulin (S) [Mass/Vol] 4.4 g/dL High 2.2-4.2 [facility] Comment on above: Performed By: #### L 100.0100, L500.4050, L501.2450, L505.5000, L700.6800 ####[facility] [address] [place], [address] Glucose [Mass/Vol] 359 mg/dL High 70-99 [facility] Comment on above: Performed By: #### L 100.0100, L500.4050, L501.2450, L505.5000, L700.6800 ####[facility] [address] [place], [address] Potassium [Moles/Vol] 3.4 mmol/L Normal 3.3-5.1 [facility] Comment on above: Performed By: #### L 100.0100, L500.4050, L501.2450, L505.5000, L700.6800 ####[facility] [address] [place], [address] Sodium [Moles/Vol] 137 mmol/L Normal 133-145 [facility] Comment on above: Performed By: #### L 100.0100, L500.4050, L501.2450, L505.5000, L700.6800 ####[facility] [address] [place], [address] T PROT 8.6 g/dL High 5.9-8.4 [facility] Comment on above: Performed By: #### L 100.0100, L500.4050, L501.2450, L505.5000, L700.6800 ####[facility] [address] [place], [address] Urea nitrogen [Mass/Vol] 14 mg/dL Normal 4-19 [facility] Comment on above: Performed By: #### L 100.0100, L500.4050, L501.2450, L505.5000, L700.6800 ####[facility] [address] [place], [place], [address] Emergency Department Summary on 12-30-2024 Emergency Department Summary Normal [facility] Eosinophil percentageOrdered By: Poli Barfield on 12-30-2024 Eosinophils/100 WBC (Bld) 0.0 % 0-5 [facility] Erythrocyte distribution wid th ratioOrdered By: Poli Barfield on 12-30-2024 Erythrocyte distribution width (RBC) [Ratio] 14.3 % 11.6-14.6 [facility] Erythrocyte distribution wid th standard deviationOrdered By: Poli Barfield on 12-30-2024 Erythrocyte distribution width (RBC) [Ratio] 41.4 fl 35.1-43.9 [facility] Glomerular filtration rate ( GFR) estimation/1.73 sq m using serum, plasma, or whole bOrdered By: Poli Barfield on 12-30-2024 GFR/1.73 sq M.predicted among non-blacks MDRD (S/P/Bld) [Vol rate/Area] 60 mL/min/{1.73_m2} >60 [facility] Comment on above: mL/min/1.73m2 CKD-EP I Creatinine Equation (2020) H AND P Exam - Hospitaliston 12-30-2024 H&P Exam - Hospitalist Normal [facility] [place] Hematocrit Auto (Bld) [Volum e fraction]Ordered By: Poli Barfield on 12-30-2024 Hematocrit (Bld) [Volume fraction] 39.2 % 37-47 [facility] Hemoglobin measurementOrdere d By: Poli Barfield on 12-30-2024 Hemoglobin (Bld) [Mass/Vol] 13.2 g/dL 12.0-15.0 [facility] Immature granulocytes/100 WB C Auto (Bld)Ordered By: Poli Barfield on 12-30-2024 Immature granulocytes/100 WBC (Bld) 0.600 % 0.0-0.9 [facility] Comment on above: IG% - Immature Granu locytes (promyelocytes, myelocytes and metamyelocytes) > 1% indicates that a LEFT SHIFT is Present. Ketones Test strip Ql (U)Ord ered By: Poli Barfield on 12-30-2024 Ketones Ql (U) 50 mg/dl High Negative [facility] Laboratory - Chemistry and C hemistry - challengeOrdered By: Poli Barfield on 12-30-2024 AST [Catalytic activity/Vol] 16 U/L <32 [facility] Lipaseon 12-30-2024 Lipase [Catalytic activity/Vol] 25 U/L Normal 13-75 [facility] Comment on above: Result Comment: Adam faulkner note:LIPASE revised reference range effective 22.New Lipase methodology. Expected to produce lower valuesthan the previous assay method.NEW Reference Range: 13 - 75 U/L Performed By: #### L 100.0100, L500.4050, L501.2450, L505.5000, L700.6800 ####[facility] [address] [place], [address] Lipase measurementOrdered By : Poli Barfield on 12-30-2024 Lipase [Catalytic activity/Vol] 25 U/L 13-75 [facility] Comment on above: Please note:LIPASE r evised reference range effective 22. New Lipase methodology. Expected to produce lower values than the previous assay method. NEW Reference Range: 13 - 75 U/L MCV (mean corpuscular volume ) determinationOrdered By: Poli Barfield on 12-30-2024 MCV (RBC) [Entitic vol] 81.8 fL 81-99 [facility] Magnesiumon 12-30-2024 Magnesium [Mass/Vol] 1.8 mg/dL Normal 1.5-2.2 [facility] Comment on above: Performed By: #### L 501.7300, L501.2300, L501.5200 ####[facility] [address] [place], [place], [address] Magnesium measurement (mass/ volume)Ordered By: David Bain on 12-30-2024 Magnesium (Unsp spec) [Mass/Vol] 1.8 mg/dL 1.5-2.2 [facility] Mean corpuscular hemoglobin (MCH) determinationOrdered By: Poli Barfield on 12-30-2024 MCH (RBC) [Entitic mass] 27.6 pg 27.0-32.0 [facility] Mean corpuscular hemoglobin concentration (MCHC) determinationOrdered By: Poli Barfield on 12-30-2024 MCHC (RBC) [Mass/Vol] 33.7 g/dL 32-36 [facility] Mean platelet volume determi nationOrdered By: Poli Barfield on 12-30-2024 Platelet mean volume (Bld) [Entitic vol] 9.7 fL 6.2-12.0 [facility] Microscopic analysis of urin e for red blood cells (RBC)Ordered By: Poli Barfield on 12-30-2024 Microscopic analysis of urine for red blood cells (RBC) 0 SEEN /hpf 0-5 [facility] Monocyte percentageOrdered B y: Poli Barfield on 12-30-2024 Monocytes/100 WBC (Bld) 4.8 % 0-10 [facility] Mucus LM Ql (Urine sed)Order ed By: Poli Barfield on 12-30-2024 Mucus Ql (Urine sed) 0 SEEN /hpf [facility] Neutrophil percentageOrdered By: Poli Barfield on 12-30-2024 Neutrophils/100 WBC (Bld) 70.7 % High 47-70 [facility] Nitrite Test strip Ql (U)Ord ered By: Poli Barfield on 12-30-2024 Nitrite Ql (U) Negative Negative [facility] No Panel InformationOrdered By: David Bain on 12-30-2024 Blood Gas Sample Site Not entered [facility] Blood Gas Specimen Type ESTRELLA [facility] Oxygen Delivery Device Room Air [facility] ESTRELLA [facility] Not entered [facility] Room Air [facility] No Panel InformationOrdered By: Poli Barfield on 12-30-2024 Urine Buprenorphine Qualitative Negative < 200 ng/mL [facility] Urine Oxycodone Screen Negative < 100 ng/mL [facility] Negative < 200 ng/mL [facility] 16 U/L <32 [facility] Nucleated red blood cell per centageOrdered By: Poli Barfield on 12-30-2024 Nucleated RBC/100 WBC (Bld) [Ratio] 0 % 0-5 [facility] Osmolality, Serumon 12-31-19 25 OSMOLALITY,SER 302 mOsm/KG High 275-295 [facility] Comment on above: Order Comment: Comme nts: Add to ER Lab draw Performed By: #### L 501.7300, L501.2300, L501.5200 ####[facility] [address] [place], [address] Phosphoruson 12-30-2024 Phosphate [Mass/Vol] 1.5 mg/dL Low 2.7-4.5 [facility] Comment on above: Performed By: #### L 501.7300, L501.2300, L501.5200 ####[facility] [address] [place], [address] Platelet countOrdered By: Demetrio Barfield on 12-30-2024 Platelets (Bld) [#/Vol] 430 10*3/uL 150-450 [facility] Potassium measurement (mass/ volume)Ordered By: Poli Barfield on 12-30-2024 Potassium (Unsp spec) [Mass/Vol] 3.4 mmol/L 3.3-5.1 [facility] ,Serum,hCG Quali.on 12-30-2024 HCG, SERUM QUAL Negative Normal [facility] Comment on above: Performed By: #### L 100.0100, L500.4050, L501.2450, L505.5000, L700.6800 ####[facility] [address] [place], [place], [id number] Protein Test strip Ql (U)Ord ered By: Poli Barfield on 12-30-2024 Protein Ql (U) 30 mg/dl High Negative [facility] Quantitative urine opiates m easurementOrdered By: Poli Barfield on 12-30-2024 Opiates Ql (U) Negative < 300 ng/mL [facility] RBC Auto (Bld) [#/Vol]Ordere d By: Poli Barfield on 12-30-2024 RBC (Bld) [#/Vol] 4.79 10*6/uL 4.2-5.4 [facility] Screening urine fentanyl kedar surementOrdered By: Poli Barfield on 12-30-2024 fentaNYL Screen Ql (U) Negative [facility] Serum beta-hCG test, qualita tiveOrdered By: Poli Barfield on 12-30-2024 Beta HCG ( test) Ql Negative [facility] Serum creatinine measurement (mass/volume)Ordered By: Poli Barfield on 12-30-2024 Creatinine [Mass/Vol] 1.22 mg/dL High 0.70-1.20 [facility] Serum globulin measurementOr dered By: Poli Barfield on 12-30-2024 Globulin (S) [Mass/Vol] 4.4 g/dL High 2.2-4.2 [facility] Serum glucose measurement (m ass/volume)Ordered By: Poli Barfield on 12-30-2024 Glucose [Mass/Vol] 359 mg/dL High 70-99 [facility] Serum or plasma alanine jordan otransferase (ALT) measurementOrdered By: Poli Barfield on 12-30-2024 ALT [Catalytic activity/Vol] 12 U/L <35 [facility] Serum or plasma albumin hussein urement (mass/volume)Ordered By: oPli Barfield on 12-30-2024 Albumin [Mass/Vol] 4.2 g/dL 3.5-5.0 [facility] Serum or plasma albumin/glob ulin mass ratioOrdered By: Poli Barfield on 12-30-2024 Albumin/Globulin [Mass ratio] 0.9 {ratio} 0.9-2.4 [facility] Serum or plasma alkaline bradley sphatase measurementOrdered By: Poli Barfield on 12-30-2024 ALP [Catalytic activity/Vol] 91 U/L 35-104 [facility] Serum or plasma calcium hussein urement (mass/volume)Ordered By: Poli Barfield on 12-30-2024 Calcium [Mass/Vol] 9.7 mg/dL 7.6-11.0 [facility] Serum or plasma urea nitroge n measurement (mass/volume)Ordered By: Poli Barfield on 12-30-2024 Urea nitrogen [Mass/Vol] 14 mg/dL 4-19 [facility] Sodium levelOrdered By: Poli Barfield on 12-30-2024 Sodium [Moles/Vol] 137 mmol/L 133-145 [facility] Squamous epithelial cells de tection in urine sediment by light microscopyOrdered By: Poli Barfield on 12-30-2024 Epithelial cells.squamous LM Ql (Urine sed) 10-25 SEEN /hpf - [facility] Total proteinOrdered By: Devon Barfield on 12-30-2024 Protein [Mass/Vol] 8.6 g/dL High 5.9-8.4 [facility] Urinalysis, Completeon 12-30 EPI,SQUAMOUS 10-25 SEEN Normal 5-10 [facility] Comment on above: Order Comment: CLEAN CATCH Performed By: #### L 400.0001 ####[facility] [address] [place], [place], [address] WBC 5-10 SEEN Normal 0-5 [facility] Comment on above: Order Comment: CLEAN CATCH Performed By: #### L 400.0001 ####[facility] [address] [place], [address] BACTERIA 0 SEEN Normal None Seen [facility] Comment on above: Order Comment: CLEAN CATCH Performed By: #### L 400.0001 ####[facility] [address] [place], [address] Mucus Ql (Urine sed) 0 SEEN Normal [facility] Comment on above: Order Comment: CLEAN CATCH Performed By: #### L 400.0001 ####[facility] [address] [place], [address] RBC 0 SEEN Normal 0-5 [facility] Comment on above: Order Comment: CLEAN CATCH Performed By: #### L 400.0001 ####[facility] [address] [facility] [address] Urine Drug Screen (VISTA)on 12-30-2024 AMPHETAMINES Negative Normal <1000 ng/mL [facility] Comment on above: Performed By: #### L 100.0100, L500.4050, L501.2450, L505.5000, L700.6800 ####[facility] [address] [place] [address] BARBITIURATES Negative Normal < 200 ng/mL [facility] Comment on above: Performed By: #### L 100.0100, L500.4050, L501.2450, L505.5000, L700.6800 ####[facility] [address] [facility] [address] BENZODIAZIPINE Negative Normal < 200 ng/mL [facility] Comment on above: Performed By: #### L 100.0100, L500.4050, L501.2450, L505.5000, L700.6800 ####[facility] [address] [facility] [address] BUP Ur Drug Scr Negative Normal < 200 ng/mL [facility] Comment on above: Performed By: #### L 100.0100, L500.4050, L501.2450, L505.5000, L700.6800 ####[facility] [address] [place] [id number] COCAINE Negative Normal < 300 ng/mL [facility] Comment on above: Performed By: #### L 100.0100, L500.4050, L501.2450, L505.5000, L700.6800 ####[facility] [address] [place] [id number] Fentanyl Negative Normal [facility] Comment on above: Performed By: #### L 100.0100, L500.4050, L501.2450, L505.5000, L700.6800 ####[facility] [address] [place] [address] METHADONE Negative Normal < 300 ng/mL [facility] Comment on above: Performed By: #### L 100.0100, L500.4050, L501.2450, L505.5000, L700.6800 ####[facility] [address] [place] [address] OPIATES Negative Normal < 300 ng/mL [facility] Comment on above: Performed By: #### L 100.0100, L500.4050, L501.2450, L505.5000, L700.6800 ####[facility] [address] [place] [address] OXYCODONE Negative Normal < 100 ng/mL [facility] Comment on above: Performed By: #### L 100.0100, L500.4050, L501.2450, L505.5000, L700.6800 ####[facility] [address] [place] [address] PCP Negative Normal < 25 ng/mL [facility] Comment on above: Performed By: #### L 100.0100, L500.4050, L501.2450, L505.5000, L700.6800 ####[facility] [address] [place] [id number] THC Positive Normal < 50 ng/mL [facility] Comment on above: Result Comment: If c onfirmation testing is needed, a separate order will berequired to send out testing to the reference laboratory. Performed By: #### L 100.0100, L500.4050, L501.2450, L505.5000, L700.6800 ####[facility] [address] [place], [address] Urine benzodiazepine levelOr dered By: Poli Barfield on 12-30-2024 Benzodiazepines Ql (U) Negative < 200 ng/mL [facility] Urine clarityOrdered By: Devon Barfield on 12-30-2024 Clarity (U) Sl. Cloudy Clear [facility] Urine cocaine levelOrdered B y: Poli Barfield on 12-30-2024 Cocaine Ql (U) Negative < 300 ng/mL [facility] Urine color determinationOrd ered By: Poli Barfield on 12-30-2024 Color (U) Yellow Yellow [facility] Urine qcgzv-8-xafxrezqizobop abinol (THC) measurementOrdered By: Poli Barfield on 12-30-2024 Cannabinoids Screen Ql (U) Positive < 50 ng/mL [facility] Comment on above: If confirmation test ing is needed, a separate order will be required to send out testing to the reference laboratory. Urine glucose detectionOrder ed By: Poli Barfield on 12-30-2024 Glucose Ql (U) 1000 mg/dl High Normal [facility] Urine leukocyte esterase det ection by dipstickOrdered By: Poli Barfield on 12-30-2024 Leukocyte esterase Test strip Ql (U) 500 /ul High Negative [facility] Urine pHOrdered By: Poli Barfield on 12-30-2024 pH (U) 5.0 [pH] 5.0 - 8.0 [facility] Urine phencyclidine (PCP) de tectionOrdered By: Poli Barfield on 12-30-2024 Phencyclidine Ql (U) Negative < 25 ng/mL [facility] Urine sediment bacteria coun t by microscopy (number/high power field)Ordered By: Poli Barfield on 12-30-2024 Bacteria LM.HPF (Urine sed) [#/Area] 0 /[HPF] None Seen [facility] Urine specific gravity measu rementOrdered By: Poli Barfield on 12-30-2024 Specific gravity (U) [Rel density] 1.025 1.002-1.030 [facility] Urine urobilinogen measureme ntOrdered By: Poli Barfield on 12-30-2024 Urobilinogen Ql (U) 1 mg/dl High Normal [facility] Venous Blood Gason 5 Blood Gas Type ESTRELLA Normal [facility] Comment on above: Performed By: #### L 9000.0810 ####[facility] [address] [place], [address] CO2 [Moles/Vol] 30 mmol/L Normal 23-33 [facility] Comment on above: Performed By: #### L 9000.0810 ####[facility] [address] [place], [address] HCO3 (Bld) [Moles/Vol] 29 mmol/L High 22-26 [facility] Comment on above: Performed By: #### L 9000.0810 ####[facility] [address] [place], [address] O2 Delivery Dev Room Air Normal [facility] Comment on above: Performed By: #### L 9000.0810 ####[facility] [address] [place], [address] [facility] Comment on above: Performed By: #### L 9000.0810 ####[facility] [address] [place], [address] VBG BE 5 mmol/L High -1.0-3.5 [facility] Comment on above: Performed By: #### L 9000.0810 ####[facility] [address] [place], [address] VBG pCO2 42.2 mmHg Normal 41-51 [facility] Comment on above: Performed By: #### L 9000.0810 ####[facility] [address] [place], [place], [address] VBG pH 7.45 High 7.32-7.42 [facility] Comment on above: Performed By: #### L 9000.0810 ####[facility] [address] [place], [address] VBG PO2 34 mmHg Normal 25-40 [facility] Comment on above: Performed By: #### L 9000.0810 ####[facility] [address] [place], [address] VBG SO2 68 Normal 50-70 [facility] Comment on above: Performed By: #### L 9000.0810 ####[facility] [address] [place], [place], [address] Venous blood base excess kedar surementOrdered By: David Bain on 12-30-2024 Base excess Calc (BldV) [Moles/Vol] 5 mmol/L High -1.0-3.5 [facility] Venous blood bicarbonate kedar surementOrdered By: David Bain on 12-30-2024 HCO3 (Bld) [Moles/Vol] 29 mmol/L High 22-26 [facility] Venous blood oxygen saturati on measurementOrdered By: David Bain on 12-30-2024 Oxygen saturation in Blood 68 % 50-70 [facility] Venous blood pH measurementO rdered By: David Bain on 12-30-2024 pH (BldV) 7.45 [pH] High 7.32-7.42 [facility] Venous blood partial pressur e of carbon dioxide measurementOrdered By: David Bain on 12-30-2024 CO2 (BldV) [Partial pressure] 42.2 mm[Hg] 41-51 [facility] Venous blood partial pressur e of oxygen measurementOrdered By: David Bain on 12-30-2024 Oxygen (BldV) [Partial pressure] 34 mm[Hg] 25-40 [facility] White blood cell (WBC) count Ordered By: Poli Barfield on 12-30-2024 WBC (Bld) [#/Vol] 13.3 10*3/uL High 4.4-11.0 [facility] White blood cell countOrdere d By: Poli Barfield on 12-30-2024 White blood cell count 5-10 SEEN /hpf 0-5 [facility] Abdomen Limitedon 12-25-2024 Abdomen Limited Normal [facility] Absolute lymphocyte countOrd ered By: Nayana Peter on 12-13-2024 Lymphocytes Auto (Unsp spec) [#/Vol] 3.52 10*3/uL 0.83-4.51 [facility] Absolute neutrophil countOrd ered By: Nayana Peter on 12-13-2024 Neutrophils (Bld) [#/Vol] 5.0 10*3/uL 2.0-7.7 [facility] Anion gap in Serum or Plasma Ordered By: Nayana Peter on 12-13-2024 Anion gap [Moles/Vol] 13 mmol/L 5-15 [facility] Automated lymphocyte count a s percentage of total leukocytesOrdered By: Nayana Peter on 12-13-2024 Lymphocytes/100 WBC Auto (Unsp spec) 36.7 % 19-41 [facility] BUN/creatinine ratioOrdered By: Nayana Peter on 12-13-2024 Urea nitrogen/Creatinine [Mass ratio] 6.2 mg/mg Low 10-20 [facility] Basophil percentageOrdered B y: Nayana Peter on 12-13-2024 Basophils/100 WBC (Bld) 0.8 % 0-1 [facility] Bilirubin, totalOrdered By: Nayana Peter on 12-13-2024 Bilirubin [Mass/Vol] 0.30 mg/dL 0.00-1.30 [facility] CBC W/Diff, Automatedon Absolute Lymph 3.52 X10 3/uL Normal 0.83-4.51 [facility] Comment on above: Performed By: #### L 100.0100, L500.4050 ####[facility] [address] [place], [address] Absolute Neut 5.0 X10 3/uL Normal 2.0-7.7 [facility] Comment on above: Performed By: #### L 100.0100, L500.4050 ####[facility] [address] [place], [address] Basophils/100 WBC (Bld) 0.8 % Normal 0-1 [facility] Comment on above: Performed By: #### L 100.0100, L500.4050 ####[facility] [address] [place], [address] Eosinophils/100 WBC (Bld) 2.0 % Normal 0-5 [facility] Comment on above: Performed By: #### L 100.0100, L500.4050 ####[facility] [address] [place], [address] Erythrocyte distribution width (RBC) [Ratio] 14.0 % Normal 11.6-14.6 [facility] Comment on above: Performed By: #### L 100.0100, L500.4050 ####[facility] [address] [place], [address] Hematocrit (Bld) [Volume fraction] 40.5 % Normal 37-47 [facility] Comment on above: Performed By: #### L 100.0100, L500.4050 ####[facility] [address] [place], [address] Hemoglobin (Bld) [Mass/Vol] 13.2 g/dL Normal 12.0-15.0 [facility] Comment on above: Performed By: #### L 100.0100, L500.4050 ####[facility] [address] [place], [address] IG% 0.800 Normal 0.0-0.9 [facility] Comment on above: Result Comment: IG% - Immature Granulocytes (promyelocytes, myelocytes andmetamyelocytes) > 1% indicates that a LEFT SHIFT is Present. Performed By: #### L 100.0100, L500.4050 ####[facility] [address] [place], [address] Lymphocytes/100 WBC (Bld) 36.7 % Normal 19-41 [facility] Comment on above: Performed By: #### L 100.0100, L500.4050 ####[facility] [address] [place], [address] MCH (RBC) [Entitic mass] 27.1 pg Normal 27.0-32.0 [facility] Comment on above: Performed By: #### L 100.0100, L500.4050 ####[facility] [address] [place], [address] MCHC (RBC) [Mass/Vol] 32.6 g/dL Normal 32-36 [facility] Comment on above: Performed By: #### L 100.0100, L500.4050 ####[facility] [address] [place], [address] MCV (RBC) [Entitic vol] 83.2 fL Normal 81-99 [facility] Comment on above: Performed By: #### L 100.0100, L500.4050 ####[facility] [address] [place], [address] Monocytes/100 WBC (Bld) 7.5 % Normal 0-10 [facility] Comment on above: Performed By: #### L 100.0100, L500.4050 ####[facility] [address] [place], [address] Neutrophils/100 WBC (Bld) 52.2 % Normal 47-70 [facility] Comment on above: Performed By: #### L 100.0100, L500.4050 ####[facility] [address] [place], [address] Nucleated RBC (Bld) [#/Vol] 0 10*3/uL Normal 0-5 [facility] Comment on above: Performed By: #### L 100.0100, L500.4050 ####[facility] [address] [place], [address] Platelet mean volume (Bld) [Entitic vol] 10.1 fL Normal 6.2-12.0 [facility] Comment on above: Performed By: #### L 100.0100, L500.4050 ####[facility] [address] [place], [address] Platelets (Bld) [#/Vol] 367 10*3/uL Normal 150-450 [facility] Comment on above: Performed By: #### L 100.0100, L500.4050 ####[facility] [address] [place], [address] RBC (Bld) [#/Vol] 4.87 10*6/uL Normal 4.2-5.4 [facility] Comment on above: Performed By: #### L 100.0100, L500.4050 ####[facility] [address] [place], [address] RDW SD 42.3 fl Normal 35.1-43.9 [facility] Comment on above: Performed By: #### L 100.0100, L500.4050 ####[facility] [address] [place], [address] WBC (Bld) [#/Vol] 9.6 10*3/uL Normal 4.4-11.0 [facility] Comment on above: Performed By: #### L 100.0100, L500.4050 ####[facility] [address] [place], [address] Carbon dioxide, total [Moles /volume] in Central venous bloodOrdered By: Nayana Peter on 12-13-2024 CO2 [Moles/Vol] 26.2 mmol/L 21.0-32.0 [facility] Chloride assayOrdered By: Tiffanie Peter on 12-13-2024 Chloride [Moles/Vol] 99 mmol/L 98-108 [facility] Comprehensive Metabolic Prof ilon 12-13-2024 Albumin [Mass/Vol] 3.8 g/dL Normal 3.5-5.0 [facility] Comment on above: Performed By: #### L 100.0100, L500.4050 ####[facility] [address] [place], [address] Albumin/Globulin [Mass ratio] 1.2 {ratio} Normal 0.9-2.4 [facility] Comment on above: Performed By: #### L 100.0100, L500.4050 ####[facility] [address] [place], [address] ALK PHOS 100 U/L Normal 35-104 [facility] Comment on above: Performed By: #### L 100.0100, L500.4050 ####[facility] [address] [place], [address] ALT [Catalytic activity/Vol] 36 U/L High <=34 [facility] Comment on above: Performed By: #### L 100.0100, L500.4050 ####[facility] [address] [place], [address] AST [Catalytic activity/Vol] 37 U/L High <=31 [facility] Comment on above: Performed By: #### L 100.0100, L500.4050 ####[facility] [address] [place], [address] Bilirubin [Mass/Vol] 0.30 mg/dL Normal 0.00-1.30 [facility] Comment on above: Performed By: #### L 100.0100, L500.4050 ####[facility] [address] [place], [address] BUN/CRE 6.2 RATIO Low 10-20 [facility] Comment on above: Performed By: #### L 100.0100, L500.4050 ####[facility] [address] [place], [address] Calcium [Mass/Vol] 8.8 mg/dL Normal 7.6-11.0 [facility] Comment on above: Performed By: #### L 100.0100, L500.4050 ####[facility] [address] [place], [address] Chloride [Moles/Vol] 99 mmol/L Normal 98-108 [facility] Comment on above: Performed By: #### L 100.0100, L500.4050 ####[facility] [address] [place], [address] CO2 [Moles/Vol] 26.2 mmol/L Normal 21.0-32.0 [facility] Comment on above: Performed By: #### L 100.0100, L500.4050 ####[facility] [address] [place], [address] Creatinine [Mass/Vol] 0.86 mg/dL Normal 0.70-1.20 [facility] Comment on above: Performed By: #### L 100.0100, L500.4050 ####[facility] [address] [place], [address] GAP 13 Normal 5-15 [facility] Comment on above: Performed By: #### L 100.0100, L500.4050 ####[facility] [address] [place], [address] GFR/1.73 sq M.predicted among non-blacks MDRD (S/P/Bld) [Vol rate/Area] 92 mL/min/{1.73_m2} Normal >60 [facility] Comment on above: Result Comment: mL/m in/1.73m2 CKD-EPI Creatinine Equation (2020) Performed By: #### L 100.0100, L500.4050 ####[facility] [address] [place], [address] Globulin (S) [Mass/Vol] 3.3 g/dL Normal 2.2-4.2 [facility] Comment on above: Performed By: #### L 100.0100, L500.4050 ####[facility] [address] [place], [address] Glucose [Mass/Vol] 251 mg/dL High 70-99 [facility] Comment on above: Performed By: #### L 100.0100, L500.4050 ####[facility] [address] [place], [address] Potassium [Moles/Vol] 4.0 mmol/L Normal 3.3-5.1 [facility] Comment on above: Performed By: #### L 100.0100, L500.4050 ####[facility] [address] [place], [address] Sodium [Moles/Vol] 139 mmol/L Normal 133-145 [facility] Comment on above: Performed By: #### L 100.0100, L500.4050 ####[facility] [address] [place], [address] T PROT 7.2 g/dL Normal 5.9-8.4 [facility] Comment on above: Performed By: #### L 100.0100, L500.4050 ####[facility] [address] [place], [address] Urea nitrogen [Mass/Vol] 5 mg/dL Normal 4-19 [facility] Comment on above: Performed By: #### L 100.0100, L500.4050 ####[facility] [address] [place], [address] Eosinophil percentageOrdered By: Nayana Peter on 12-13-2024 Eosinophils/100 WBC (Bld) 2.0 % 0-5 [facility] Erythrocyte distribution wid th ratioOrdered By: Nayana Peter on 12-13-2024 Erythrocyte distribution width (RBC) [Ratio] 14.0 % 11.6-14.6 [facility] Erythrocyte distribution wid th standard deviationOrdered By: Nayana Peter on 12-13-2024 Erythrocyte distribution width (RBC) [Ratio] 42.3 fl 35.1-43.9 [facility] Gastroenterology Visit Repor ton 12-13-2024 Gastroenterology Visit Report Normal [facility] Glomerular filtration rate ( GFR) estimation/1.73 sq m using serum, plasma, or whole bOrdered By: Nayana Peter on 12-13-2024 GFR/1.73 sq M.predicted among non-blacks MDRD (S/P/Bld) [Vol rate/Area] 92 mL/min/{1.73_m2} >60 [facility] Comment on above: mL/min/1.73m2 CKD-EP I Creatinine Equation (2020) Hematocrit Auto (Bld) [Volum e fraction]Ordered By: Nayana Peter on 12-13-2024 Hematocrit (Bld) [Volume fraction] 40.5 % 37-47 [facility] Hemoglobin measurementOrdere d By: Nayana Peter on 12-13-2024 Hemoglobin (Bld) [Mass/Vol] 13.2 g/dL 12.0-15.0 [facility] Immature granulocytes/100 WB C Auto (Bld)Ordered By: Nayana Peter on 12-13-2024 Immature granulocytes/100 WBC (Bld) 0.800 % 0.0-0.9 [facility] Comment on above: IG% - Immature Granu locytes (promyelocytes, myelocytes and metamyelocytes) > 1% indicates that a LEFT SHIFT is Present. Laboratory - Chemistry and C hemistry - challengeOrdered By: Nayana Peter on 12-13-2024 AST [Catalytic activity/Vol] 37 U/L High <32 [facility] MCV (mean corpuscular volume ) determinationOrdered By: Nayana Peter on 12-13-2024 MCV (RBC) [Entitic vol] 83.2 fL 81-99 [facility] Mean corpuscular hemoglobin (MCH) determinationOrdered By: Nayana Peter on 12-13-2024 MCH (RBC) [Entitic mass] 27.1 pg 27.0-32.0 [facility] Mean corpuscular hemoglobin concentration (MCHC) determinationOrdered By: Nayana Peter on 12-13-2024 MCHC (RBC) [Mass/Vol] 32.6 g/dL 32-36 [facility] Mean platelet volume determi nationOrdered By: Nayana Peter on 12-13-2024 Platelet mean volume (Bld) [Entitic vol] 10.1 fL 6.2-12.0 [facility] Monocyte percentageOrdered B y: Nayana Peter on 12-13-2024 Monocytes/100 WBC (Bld) 7.5 % 0-10 [facility] Neutrophil percentageOrdered By: Nayana Peter on 12-13-2024 Neutrophils/100 WBC (Bld) 52.2 % 47-70 [facility] No Panel InformationOrdered By: Nayana Peter on 12-13-2024 37 U/L High <32 [facility] Nucleated red blood cell per centageOrdered By: Nayana Peter on 12-13-2024 Nucleated RBC/100 WBC (Bld) [Ratio] 0 % 0-5 [facility] Platelet countOrdered By: Tiffanie Peter on 12-13-2024 Platelets (Bld) [#/Vol] 367 10*3/uL 150-450 [facility] Potassium measurement (mass/ volume)Ordered By: Nayana Peter on 12-13-2024 Potassium (Unsp spec) [Mass/Vol] 4.0 mmol/L 3.3-5.1 [facility] RBC Auto (Bld) [#/Vol]Ordere d By: Nayana Peter on 12-13-2024 RBC (Bld) [#/Vol] 4.87 10*6/uL 4.2-5.4 [facility] Serum creatinine measurement (mass/volume)Ordered By: Nayana Peter on 12-13-2024 Creatinine [Mass/Vol] 0.86 mg/dL 0.70-1.20 [facility] Serum globulin measurementOr dered By: Nayana Peter on 12-13-2024 Globulin (S) [Mass/Vol] 3.3 g/dL 2.2-4.2 [facility] Serum glucose measurement (m ass/volume)Ordered By: Nayana Peter on 12-13-2024 Glucose [Mass/Vol] 251 mg/dL High 70-99 [facility] Serum or plasma alanine jordan otransferase (ALT) measurementOrdered By: Nayana Peter on 12-13-2024 ALT [Catalytic activity/Vol] 36 U/L High <35 [facility] Serum or plasma albumin hussein urement (mass/volume)Ordered By: Nayana Peter on 12-13-2024 Albumin [Mass/Vol] 3.8 g/dL 3.5-5.0 [facility] Serum or plasma albumin/glob ulin mass ratioOrdered By: Nayana Peter on 12-13-2024 Albumin/Globulin [Mass ratio] 1.2 {ratio} 0.9-2.4 [facility] Serum or plasma alkaline bradley sphatase measurementOrdered By: Nayana Peter on 12-13-2024 ALP [Catalytic activity/Vol] 100 U/L 35-104 [facility] Serum or plasma calcium hussein urement (mass/volume)Ordered By: Nayana Peter on 12-13-2024 Calcium [Mass/Vol] 8.8 mg/dL 7.6-11.0 [facility] Serum or plasma urea nitroge n measurement (mass/volume)Ordered By: Nayana Peter on 12-13-2024 Urea nitrogen [Mass/Vol] 5 mg/dL 4-19 [facility] Sodium levelOrdered By: Oh Peter on 12-13-2024 Sodium [Moles/Vol] 139 mmol/L 133-145 [facility] Total proteinOrdered By: Candie Peter on 12-13-2024 Protein [Mass/Vol] 7.2 g/dL 5.9-8.4 [facility] White blood cell (WBC) count Ordered By: Nayana Peter on 12-13-2024 WBC (Bld) [#/Vol] 9.6 10*3/uL 4.4-11.0 [facility] Culture, Blood (WB)on 2024 CUB Blood cultures x2, f rom two different sites No growth in 5 days. Normal [facility] Comment on above: Performed By: #### M 200.1000, L503.6005 ####[facility] [address] [place], [place], [id number] CUB Blood cultures x2, f rom two different sites No growth in 5 days. Normal [facility] Comment on above: Performed By: #### M 200.1000 ####[facility] [address] [place], [place], [id number] Absolute lymphocyte countOrd ered By: Gale Lr on 11-28-2024 Lymphocytes Auto (Unsp spec) [#/Vol] 5.24 10*3/uL High 0.83-4.51 [facility] Absolute neutrophil countOrd ered By: Gale Lr on 11-28-2024 Neutrophils (Bld) [#/Vol] 6.1 10*3/uL 2.0-7.7 [facility] Anion gap in Serum or Plasma Ordered By: Gale Lr on 11-28-2024 Anion gap [Moles/Vol] 12 mmol/L 11-23 [facility] Automated lymphocyte count a s percentage of total leukocytesOrdered By: Gale Lr on 11-28-2024 Lymphocytes/100 WBC Auto (Unsp spec) 43.0 % High - [facility] BUN/creatinine ratioOrdered By: Gale Lr on 11-28-2024 Urea nitrogen/Creatinine [Mass ratio] 12.2 mg/mg - [facility] Basic Metabolic Profile (BMP )on 11-28-2024 BUN Normal 4- [facility] Comment on above: Result Comment: DUPL ICATE Performed By: #### L 500.2500, L100.0100 ####[facility] [address] [place], [address] BUN/CRE Normal 10-20 [facility] Comment on above: Result Comment: DUPL ICATE Performed By: #### L 500.2500, L100.0100 ####[facility] [address] [place], [address] Calcium Normal 7.6-11.0 [facility] Comment on above: Result Comment: DUPL ICATE Performed By: #### L 500.2500, L100.0100 ####[facility] [address] [place], [address] CL Normal 98-108 [facility] Comment on above: Result Comment: DUPL ICATE Performed By: #### L 500.2500, L100.0100 ####[facility] [address] [place], [address] CO2 Normal 21.0-32.0 [facility] Comment on above: Result Comment: DUPL ICATE Performed By: #### L 500.2500, L100.0100 ####[facility] [address] [place], [address] CREAT,SERUM Normal 0.70-1.20 [facility] Comment on above: Result Comment: DUPL ICATE Performed By: #### L 500.2500, L100.0100 ####[facility] [address] [place], [address] eGFR Normal >60 [facility] Comment on above: Result Comment: DUPL ICATE Performed By: #### L 500.2500, L100.0100 ####[facility] [address] [place], [address] GAP Normal 5-15 [facility] Comment on above: Result Comment: DUPL ICATE Performed By: #### L 500.2500, L100.0100 ####[facility] [address] [place], [address] GLU Normal 70-99 [facility] Comment on above: Result Comment: DUPL ICATE Performed By: #### L 500.2500, L100.0100 ####[facility] [address] [place], [address] Potassium Normal 3.3-5.1 [facility] Comment on above: Result Comment: DUPL ICATE Performed By: #### L 500.2500, L100.0100 ####[facility] [address] [place], [address] Basic Metabolic Profile (BMP) Normal 133-145 [facility] Comment on above: Result Comment: DUPL ICATE Performed By: #### L 500.2500, L100.0100 ####[facility] [address] [place], [address] BUN/CRE 12.2 RATIO Normal 10-20 [facility] Comment on above: Performed By: #### L 100.0100, L500.2500 ####[facility] [address] [place], [address] Calcium [Mass/Vol] 7.9 mg/dL Normal 7.6-11.0 [facility] Comment on above: Performed By: #### L 100.0100, L500.2500 ####[facility] [address] [place], [address] Chloride [Moles/Vol] 104 mmol/L Normal 98-108 [facility] Comment on above: Performed By: #### L 100.0100, L500.2500 ####[facility] [address] [place], [address] CO2 [Moles/Vol] 24.7 mmol/L Normal 21.0-32.0 [facility] Comment on above: Performed By: #### L 100.0100, L500.2500 ####[facility] [address] [place], [address] Creatinine [Mass/Vol] 1.02 mg/dL Normal 0.70-1.20 [facility] Comment on above: Performed By: #### L 100.0100, L500.2500 ####[facility] [address] [place], [address] ECRCL 99.83 ml/min Normal 50-250 [facility] Comment on above: Performed By: #### L 100.0100, L500.2500 ####[facility] [address] [place], [address] GAP 12 Normal 5-15 [facility] Comment on above: Performed By: #### L 100.0100, L500.2500 ####[facility] [address] [place], [address] GFR/1.73 sq M.predicted among non-blacks MDRD (S/P/Bld) [Vol rate/Area] 75 mL/min/{1.73_m2} Normal >60 [facility] Comment on above: Result Comment: mL/m in/1.73m2 CKD-EPI Creatinine Equation (2020) Performed By: #### L 100.0100, L500.2500 ####[facility] [address] [place], [address] Glucose [Mass/Vol] 134 mg/dL High 70-99 [facility] Comment on above: Performed By: #### L 100.0100, L500.2500 ####[facility] [address] [place], [address] Potassium [Moles/Vol] 3.5 mmol/L Normal 3.3-5.1 [facility] Comment on above: Performed By: #### L 100.0100, L500.2500 ####[facility] [address] [place], [address] Sodium [Moles/Vol] 141 mmol/L Normal 133-145 [facility] Comment on above: Performed By: #### L 100.0100, L500.2500 ####[facility] [address] [place], [address] Urea nitrogen [Mass/Vol] 12 mg/dL Normal 4-19 [facility] Comment on above: Performed By: #### L 100.0100, L500.2500 ####[facility] [address] [place], [address] Basophil percentageOrdered B y: Gale Lr on 11-28-2024 Basophils/100 WBC (Bld) 0.6 % 0-1 [facility] Bedside Glucoseon 11-28-2024 FING[place]ICK GLU 127 mg/dL High 74-106 [facility] Comment on above: Result Comment: BULL SAMAYOA OF PATIENT CARE PER NURSING PROTOCOL Performed By: #### L 501.080 ####[facility] [address] [place], [address] CBC W/Diff, Automatedon 11-10 Absolute Neut Normal 2.0-7.7 [facility] Comment on above: Result Comment: DUPL ICATE Performed By: #### L 500.2500, L100.0100 ####[facility] [address] [place], [address] HCT Normal 37-47 [facility] Comment on above: Result Comment: DUPL ICATE Performed By: #### L 500.2500, L100.0100 ####[facility] [address] [place], [address] HGB Normal 12.0-15.0 [facility] Comment on above: Result Comment: DUPL ICATE Performed By: #### L 500.2500, L100.0100 ####[facility] [address] [place], [address] MCH Normal 27.0-32.0 [facility] Comment on above: Result Comment: DUPL ICATE Performed By: #### L 500.2500, L100.0100 ####[facility] [address] [place], [address] MCHC Normal 32-36 [facility] Comment on above: Result Comment: DUPL ICATE Performed By: #### L 500.2500, L100.0100 ####[facility] [address] [place], [address] MCV Normal 81-99 [facility] Comment on above: Result Comment: DUPL ICATE Performed By: #### L 500.2500, L100.0100 ####[facility] [address] [place], [address] NEUT% Normal 47-70 [facility] Comment on above: Result Comment: DUPL ICATE Performed By: #### L 500.2500, L100.0100 ####[facility] [address] [place], [address] PLT Normal 150-450 [facility] Comment on above: Result Comment: DUPL ICATE Performed By: #### L 500.2500, L100.0100 ####[facility] [address] [place], [address] RBC Normal 4.2-5.4 [facility] Comment on above: Result Comment: DUPL ICATE Performed By: #### L 500.2500, L100.0100 ####[facility] [address] [place], [address] RDW CV Normal 11.6-14.6 [facility] Comment on above: Result Comment: DUPL ICATE Performed By: #### L 500.2500, L100.0100 ####[facility] [address] [place], [address] RDW SD Normal 35.1-43.9 [facility] Comment on above: Result Comment: DUPL ICATE Performed By: #### L 500.2500, L100.0100 ####[facility] [address] [place], [address] WBC Normal 4.4-11.0 [facility] Comment on above: Result Comment: DUPL ICATE Performed By: #### L 500.2500, L100.0100 ####[facility] [address] [place], [address] Absolute Lymph 5.24 X10 3/uL High 0.83-4.51 [facility] Comment on above: Performed By: #### L 100.0100, L500.2500 ####[facility] [address] [place], [address] Absolute Neut 6.1 X10 3/uL Normal 2.0-7.7 [facility] Comment on above: Performed By: #### L 100.0100, L500.2500 ####[facility] [address] [place], [address] Basophils/100 WBC (Bld) 0.6 % Normal 0-1 [facility] Comment on above: Performed By: #### L 100.0100, L500.2500 ####[facility] [address] [place], [address] Eosinophils/100 WBC (Bld) 0.5 % Normal 0-5 [facility] Comment on above: Performed By: #### L 100.0100, L500.2500 ####[facility] [address] [place], [address] Erythrocyte distribution width (RBC) [Ratio] 13.7 % Normal 11.6-14.6 [facility] Comment on above: Performed By: #### L 100.0100, L500.2500 ####[facility] [address] [place], [address] Hematocrit (Bld) [Volume fraction] 37.0 % Normal 37-47 [facility] Comment on above: Performed By: #### L 100.0100, L500.2500 ####[facility] [address] [place], [address] Hemoglobin (Bld) [Mass/Vol] 12.1 g/dL Normal 12.0-15.0 [facility] Comment on above: Performed By: #### L 100.0100, L500.2500 ####[facility] [address] [place], [address] IG% 0.800 Normal 0.0-0.9 [facility] Comment on above: Result Comment: IG% - Immature Granulocytes (promyelocytes, myelocytes andmetamyelocytes) > 1% indicates that a LEFT SHIFT is Present. Performed By: #### L 100.0100, L500.2500 ####[facility] [address] [place], [address] Lymphocytes/100 WBC (Bld) 43.0 % High 19-41 [facility] Comment on above: Performed By: #### L 100.0100, L500.2500 ####[facility] [address] [place], [address] MCH (RBC) [Entitic mass] 27.3 pg Normal 27.0-32.0 [facility] Comment on above: Performed By: #### L 100.0100, L500.2500 ####[facility] [address] [place], [address] MCHC (RBC) [Mass/Vol] 32.7 g/dL Normal 32-36 [facility] Comment on above: Performed By: #### L 100.0100, L500.2500 ####[facility] [address] [place], [address] MCV (RBC) [Entitic vol] 83.3 fL Normal 81-99 [facility] Comment on above: Performed By: #### L 100.0100, L500.2500 ####[facility] [address] [place], [address] Monocytes/100 WBC (Bld) 5.3 % Normal 0-10 [facility] Comment on above: Performed By: #### L 100.0100, L500.2500 ####[facility] [address] [place], [address] Neutrophils/100 WBC (Bld) 49.8 % Normal 47-70 [facility] Comment on above: Performed By: #### L 100.0100, L500.2500 ####[facility] [address] [place], [address] Nucleated RBC (Bld) [#/Vol] 0 10*3/uL Normal 0-5 [facility] Comment on above: Performed By: #### L 100.0100, L500.2500 ####[facility] [address] [place], [address] Platelet mean volume (Bld) [Entitic vol] 9.3 fL Normal 6.2-12.0 [facility] Comment on above: Performed By: #### L 100.0100, L500.2500 ####[facility] [address] [place], [address] Platelets (Bld) [#/Vol] 400 10*3/uL Normal 150-450 [facility] Comment on above: Performed By: #### L 100.0100, L500.2500 ####[facility] [address] [place], [address] RBC (Bld) [#/Vol] 4.44 10*6/uL Normal 4.2-5.4 [facility] Comment on above: Performed By: #### L 100.0100, L500.2500 ####[facility] [address] [place], [address] RDW SD 41.8 fl Normal 35.1-43.9 [facility] Comment on above: Performed By: #### L 100.0100, L500.2500 ####[facility] [address] [place], [address] WBC (Bld) [#/Vol] 12.2 10*3/uL High 4.4-11.0 [facility] Comment on above: Performed By: #### L 100.0100, L500.2500 ####[facility] [address] [place], [address] Carbon dioxide, total [Moles /volume] in Central venous bloodOrdered By: Gale Lr on 11-28-2024 CO2 [Moles/Vol] 24.7 mmol/L 21.0-32.0 [facility] Chloride assayOrdered By: Sun Lr on 11-28-2024 Chloride [Moles/Vol] 104 mmol/L 98-108 [facility] Eosinophil percentageOrdered By: Gale Lr on 11-28-2024 Eosinophils/100 WBC (Bld) 0.5 % 0-5 [facility] Erythrocyte distribution wid th ratioOrdered By: Gale Lr on 11-28-2024 Erythrocyte distribution width (RBC) [Ratio] 13.7 % 11.6-14.6 [facility] Erythrocyte distribution wid th standard deviationOrdered By: Gale Lr on 11-28-2024 Erythrocyte distribution width (RBC) [Ratio] 41.8 fl 35.1-43.9 [facility] Glomerular filtration rate ( GFR) estimation/1.73 sq m using serum, plasma, or whole bOrdered By: Gale Lr on 11-28-2024 GFR/1.73 sq M.predicted among non-blacks MDRD (S/P/Bld) [Vol rate/Area] 75 mL/min/{1.73_m2} >60 [facility] Comment on above: mL/min/1.73m2 CKD-EP I Creatinine Equation (2020) Glucose measurement at bedsi deOrdered By: Gale Lr on 11-28-2024 Glucose [Mass/Vol] 127 mg/dL High 74-106 [facility] Comment on above: MANAGEMENT OF PATIEN T CARE PER NURSING PROTOCOL Hematocrit Auto (Bld) [Volum e fraction]Ordered By: Gale Lr on 11-28-2024 Hematocrit (Bld) [Volume fraction] 37.0 % 37-47 [facility] Hemoglobin measurementOrdere d By: Gale Lr on 11-28-2024 Hemoglobin (Bld) [Mass/Vol] 12.1 g/dL 12.0-15.0 [facility] Immature granulocytes/100 WB C Auto (Bld)Ordered By: Gale Lr on 11-28-2024 Immature granulocytes/100 WBC (Bld) 0.800 % 0.0-0.9 [facility] Comment on above: IG% - Immature Granu locytes (promyelocytes, myelocytes and metamyelocytes) > 1% indicates that a LEFT SHIFT is Present. MCV (mean corpuscular volume ) determinationOrdered By: Gale Lr on 11-28-2024 MCV (RBC) [Entitic vol] 83.3 fL 81-99 [facility] Mean corpuscular hemoglobin (MCH) determinationOrdered By: Gale Lr on 11-28-2024 MCH (RBC) [Entitic mass] 27.3 pg 27.0-32.0 [facility] Mean corpuscular hemoglobin concentration (MCHC) determinationOrdered By: Gale Lr on 11-28-2024 MCHC (RBC) [Mass/Vol] 32.7 g/dL 32-36 [facility] Mean platelet volume determi nationOrdered By: Gale Lr on 11-28-2024 Platelet mean volume (Bld) [Entitic vol] 9.3 fL 6.2-12.0 [facility] Monocyte percentageOrdered B y: Gale Lr on 11-28-2024 Monocytes/100 WBC (Bld) 5.3 % 0-10 [facility] Neutrophil percentageOrdered By: Gale Lr on 11-28-2024 Neutrophils/100 WBC (Bld) 49.8 % 47-70 [facility] Nucleated red blood cell per centageOrdered By: Gale rL on 11-28-2024 Nucleated RBC/100 WBC (Bld) [Ratio] 0 % 0-5 [facility] Platelet countOrdered By: Sun Lr on 11-28-2024 Platelets (Bld) [#/Vol] 400 10*3/uL 150-450 [facility] Potassium measurement (mass/ volume)Ordered By: Gale Lr on 11-28-2024 Potassium (Unsp spec) [Mass/Vol] 3.5 mmol/L 3.3-5.1 [facility] RBC Auto (Bld) [#/Vol]Ordere d By: Gale Lr on 11-28-2024 RBC (Bld) [#/Vol] 4.44 10*6/uL 4.2-5.4 [facility] Serum creatinine measurement (mass/volume)Ordered By: Gale Lr on 11-28-2024 Creatinine [Mass/Vol] 1.02 mg/dL 0.70-1.20 [facility] Serum glucose measurement (m ass/volume)Ordered By: Gale Lr on 11-28-2024 Glucose [Mass/Vol] 134 mg/dL High 70-99 [facility] Serum or plasma calcium hussein urement (mass/volume)Ordered By: Gale Lr on 11-28-2024 Calcium [Mass/Vol] 7.9 mg/dL 7.6-11.0 [facility] Serum or plasma urea nitroge n measurement (mass/volume)Ordered By: Gale Lr on 11-28-2024 Urea nitrogen [Mass/Vol] 12 mg/dL 4-19 [facility] Sodium levelOrdered By: Argelia Lr on 11-28-2024 Sodium [Moles/Vol] 141 mmol/L 133-145 [facility] White blood cell (WBC) count Ordered By: Gale Lr on 11-28-2024 WBC (Bld) [#/Vol] 12.2 10*3/uL High 4.4-11.0 [facility] Abdomen/Pelvis WITH Contrast on 11-27-2024 Abdomen/Pelvis WITH Contrast Normal [facility] Basic Metabolic Profile (BMP )on 11-27-2024 BUN/CRE 15.0 RATIO Normal 10-20 [facility] Comment on above: Performed By: #### L 500.2500, L100.0100 ####[facility] [address] [place], [address] Calcium [Mass/Vol] 7.9 mg/dL Normal 7.6-11.0 [facility] Comment on above: Performed By: #### L 500.2500, L100.0100 ####[facility] [address] [place], [address] Chloride [Moles/Vol] 102 mmol/L Normal 98-108 [facility] Comment on above: Performed By: #### L 500.2500, L100.0100 ####[facility] [address] [place], [address] CO2 [Moles/Vol] 24.2 mmol/L Normal 21.0-32.0 [facility] Comment on above: Performed By: #### L 500.2500, L100.0100 ####[facility] [address] [place], [address] Creatinine [Mass/Vol] 1.07 mg/dL Normal 0.70-1.20 [facility] Comment on above: Performed By: #### L 500.2500, L100.0100 ####[facility] [address] [place], [address] ECRCL 95.16 ml/min Normal 50-250 [facility] Comment on above: Performed By: #### L 500.2500, L100.0100 ####[facility] [address] [place], [address] GAP 13 Normal 5-15 [facility] Comment on above: Performed By: #### L 500.2500, L100.0100 ####[facility] [address] [place], [address] GFR/1.73 sq M.predicted among non-blacks MDRD (S/P/Bld) [Vol rate/Area] 71 mL/min/{1.73_m2} Normal >60 [facility] Comment on above: Result Comment: mL/m in/1.73m2 CKD-EPI Creatinine Equation (2020) Performed By: #### L 500.2500, L100.0100 ####[facility] [address] [place], [address] Glucose [Mass/Vol] 217 mg/dL High 70-99 [facility] Comment on above: Performed By: #### L 500.2500, L100.0100 ####[facility] [address] [place], [address] Potassium [Moles/Vol] 4.1 mmol/L Normal 3.3-5.1 [facility] Comment on above: Performed By: #### L 500.2500, L100.0100 ####[facility] [address] [place], [address] Sodium [Moles/Vol] 139 mmol/L Normal 133-145 [facility] Comment on above: Performed By: #### L 500.2500, L100.0100 ####[facility] [address] [place], [address] Urea nitrogen [Mass/Vol] 16 mg/dL Normal 4-19 [facility] Comment on above: Performed By: #### L 500.2500, L100.0100 ####[facility] [address] [place], [address] Bedside Glucoseon 11-27-2024 FINGERSTICK GLU 175 mg/dL High 74-106 [facility] Comment on above: Result Comment: BULL SAMAYOA OF PATIENT CARE PER NURSING PROTOCOL Performed By: #### L 501.080 ####[facility] [address] [place], [address] FINGERSTICK GLU 147 mg/dL High 74-106 [facility] Comment on above: Result Comment: BULL GEMENT OF PATIENT CARE PER NURSING PROTOCOL Performed By: #### L 501.080 ####[facility] [address] [place], [address] FINGERSTICK GLU 197 mg/dL High 74-106 [facility] Comment on above: Result Comment: BULL GEMENT OF PATIENT CARE PER NURSING PROTOCOL Performed By: #### L 501.080 ####[facility] [address] [place], [address] FINGERSTICK GLU 185 mg/dL High 74-106 [facility] Comment on above: Result Comment: BULL GEMENT OF PATIENT CARE PER NURSING PROTOCOL Performed By: #### L 501.080 ####[facility] [address] [place], [address] Bilirubin directOrdered By: Gale Lr on 11-27-2024 Bilirubin.direct [Mass/Vol] 0.14 mg/dL 0.00-0.30 [facility] Bilirubin, totalOrdered By: Gale Lr on 11-27-2024 Bilirubin [Mass/Vol] 0.35 mg/dL 0.00-1.30 [facility] CBC W/Diff, Automatedon 11-09 Absolute Lymph 2.31 X10 3/uL Normal 0.83-4.51 [facility] Comment on above: Performed By: #### L 500.2500, L100.0100 ####[facility] [address] [place], [address] Absolute Neut 9.7 X10 3/uL High 2.0-7.7 [facility] Comment on above: Performed By: #### L 500.2500, L100.0100 ####[facility] [address] [place], [address] Basophils/100 WBC (Bld) 0.2 % Normal 0-1 [facility] Comment on above: Performed By: #### L 500.2500, L100.0100 ####[facility] [address] [place], [address] Eosinophils/100 WBC (Bld) 0.0 % Normal 0-5 [facility] Comment on above: Performed By: #### L 500.2500, L100.0100 ####[facility] [address] [place], [address] Erythrocyte distribution width (RBC) [Ratio] 13.8 % Normal 11.6-14.6 [facility] Comment on above: Performed By: #### L 500.2500, L100.0100 ####[facility] [address] [place], [address] Hematocrit (Bld) [Volume fraction] 34.7 % Low 37-47 [facility] Comment on above: Performed By: #### L 500.2500, L100.0100 ####[facility] [address] [place], [address] Hemoglobin (Bld) [Mass/Vol] 11.3 g/dL Low 12.0-15.0 [facility] Comment on above: Performed By: #### L 500.2500, L100.0100 ####[facility] [address] [place], [address] IG% 0.600 Normal 0.0-0.9 [facility] Comment on above: Result Comment: IG% - Immature Granulocytes (promyelocytes, myelocytes andmetamyelocytes) > 1% indicates that a LEFT SHIFT is Present. Performed By: #### L 500.2500, L100.0100 ####[facility] [address] [place], [address] Lymphocytes/100 WBC (Bld) 18.1 % Low 19-41 [facility] Comment on above: Performed By: #### L 500.2500, L100.0100 ####[facility] [address] [place], [address] MCH (RBC) [Entitic mass] 27.0 pg Normal 27.0-32.0 [facility] Comment on above: Performed By: #### L 500.2500, L100.0100 ####[facility] [address] [place], [address] MCHC (RBC) [Mass/Vol] 32.6 g/dL Normal 32-36 [facility] Comment on above: Performed By: #### L 500.2500, L100.0100 ####[facility] [address] [place], [address] MCV (RBC) [Entitic vol] 83.0 fL Normal 81-99 [facility] Comment on above: Performed By: #### L 500.2500, L100.0100 ####[facility] [address] [place], [address] Monocytes/100 WBC (Bld) 5.2 % Normal 0-10 [facility] Comment on above: Performed By: #### L 500.2500, L100.0100 ####[facility] [address] [place], [address] Neutrophils/100 WBC (Bld) 75.9 % High 47-70 [facility] Comment on above: Performed By: #### L 500.2500, L100.0100 ####[facility] [address] [place], [address] Nucleated RBC (Bld) [#/Vol] 0 10*3/uL Normal 0-5 [facility] Comment on above: Performed By: #### L 500.2500, L100.0100 ####[facility] [address] [place], [address] Platelet mean volume (Bld) [Entitic vol] 9.6 fL Normal 6.2-12.0 [facility] Comment on above: Performed By: #### L 500.2500, L100.0100 ####[facility] [address] [place], [address] Platelets (Bld) [#/Vol] 354 10*3/uL Normal 150-450 [facility] Comment on above: Performed By: #### L 500.2500, L100.0100 ####[facility] [address] [place], [address] RBC (Bld) [#/Vol] 4.18 10*6/uL Low 4.2-5.4 [facility] Comment on above: Performed By: #### L 500.2500, L100.0100 ####[facility] [address] [place], [address] RDW SD 42.2 fl Normal 35.1-43.9 [facility] Comment on above: Performed By: #### L 500.2500, L100.0100 ####[facility] [address] [place], [address] WBC (Bld) [#/Vol] 12.8 10*3/uL High 4.4-11.0 [facility] Comment on above: Performed By: #### L 500.2500, L100.0100 ####[facility] [address] [place], [address] Laboratory - Chemistry and C hemistry - challengeOrdered By: Gale Lr on 11-27-2024 AST [Catalytic activity/Vol] 21 U/L <32 [facility] Liver Profileon 11-27-2024 Albumin [Mass/Vol] 3.5 g/dL Normal 3.5-5.0 [facility] Comment on above: Performed By: #### L 500.3400 ####[facility] [address] [place], [address] ALK PHOS 88 U/L Normal 35-104 [facility] Comment on above: Performed By: #### L 500.3400 ####[facility] [address] [place], [address] ALT [Catalytic activity/Vol] 12 U/L Normal <=34 [facility] Comment on above: Performed By: #### L 500.3400 ####[facility] [address] [place], [address] AST [Catalytic activity/Vol] 21 U/L Normal <=31 [facility] Comment on above: Performed By: #### L 500.3400 ####[facility] [address] [place], [address] Bilirubin [Mass/Vol] 0.35 mg/dL Normal 0.00-1.30 [facility] Comment on above: Performed By: #### L 500.3400 ####[facility] [address] [place], [address] Bilirubin.direct [Mass/Vol] 0.14 mg/dL Normal 0.00-0.30 [facility] Comment on above: Performed By: #### L 500.3400 ####[facility] [address] [place], [address] Globulin (S) [Mass/Vol] 3.6 g/dL Normal 2.2-4.2 [facility] Comment on above: Performed By: #### L 500.3400 ####[facility] [address] [place], [address] T PROT 7.1 g/dL Normal 5.9-8.4 [facility] Comment on above: Performed By: #### L 500.3400 ####[facility] [address] [place], [address] No Panel InformationOrdered By: Gale Lr on 11-27-2024 21 U/L <32 [facility] Serum globulin measurementOr dered By: Gale Lr on 11-27-2024 Globulin (S) [Mass/Vol] 3.6 g/dL 2.2-4.2 [facility] Serum or plasma alanine jordan otransferase (ALT) measurementOrdered By: Gale Lr on 11-27-2024 ALT [Catalytic activity/Vol] 12 U/L <35 [facility] Serum or plasma albumin hussein urement (mass/volume)Ordered By: Gale Lr on 11-27-2024 Albumin [Mass/Vol] 3.5 g/dL 3.5-5.0 [facility] Serum or plasma alkaline bradley sphatase measurementOrdered By: Gale Lr on 11-27-2024 ALP [Catalytic activity/Vol] 88 U/L 35-104 [facility] Total proteinOrdered By: Sugar Lr on 11-27-2024 Protein [Mass/Vol] 7.1 g/dL 5.9-8.4 [facility] Abdomen Single Viewon 2024 Abdomen Single View Normal [facility] Basic Metabolic Profile (BMP )on 11-26-2024 BUN/CRE 15.0 RATIO Normal 10-20 [facility] Comment on above: Performed By: #### L 500.2500, L100.0100 ####[facility] [address] [place], [address] Calcium [Mass/Vol] 7.8 mg/dL Normal 7.6-11.0 [facility] Comment on above: Performed By: #### L 500.2500, L100.0100 ####[facility] [address] [place], [address] Chloride [Moles/Vol] 104 mmol/L Normal 98-108 [facility] Comment on above: Performed By: #### L 500.2500, L100.0100 ####[facility] [address] [place], [address] CO2 [Moles/Vol] 22.6 mmol/L Normal 21.0-32.0 [facility] Comment on above: Performed By: #### L 500.2500, L100.0100 ####[facility] [address] [place], [address] Creatinine [Mass/Vol] 1.16 mg/dL Normal 0.70-1.20 [facility] Comment on above: Performed By: #### L 500.2500, L100.0100 ####[facility] [address] [place], [address] ECRCL 87.78 ml/min Normal 50-250 [facility] Comment on above: Performed By: #### L 500.2500, L100.0100 ####[facility] [address] [place], [address] GAP 11 Normal 5-15 [facility] Comment on above: Performed By: #### L 500.2500, L100.0100 ####[facility] [address] [place], [address] GFR/1.73 sq M.predicted among non-blacks MDRD (S/P/Bld) [Vol rate/Area] 64 mL/min/{1.73_m2} Normal >60 [facility] Comment on above: Result Comment: mL/m in/1.73m2 CKD-EPI Creatinine Equation (2020) Performed By: #### L 500.2500, L100.0100 ####[facility] [address] [place], [address] Glucose [Mass/Vol] 148 mg/dL High 70-99 [facility] Comment on above: Performed By: #### L 500.2500, L100.0100 ####[facility] [address] [place], [address] Potassium [Moles/Vol] 4.0 mmol/L Normal 3.3-5.1 [facility] Comment on above: Performed By: #### L 500.2500, L100.0100 ####[facility] [address] [place], [address] Sodium [Moles/Vol] 137 mmol/L Normal 133-145 [facility] Comment on above: Performed By: #### L 500.2500, L100.0100 ####[facility] [address] [place], [address] Urea nitrogen [Mass/Vol] 17 mg/dL Normal 4-19 [facility] Comment on above: Performed By: #### L 500.2500, L100.0100 ####[facility] [address] [place], [address] Bedside Glucoseon 11-26-2024 FINGERSTICK GLU 185 mg/dL High -106 [facility] Comment on above: Result Comment: BULL GEMENT OF PATIENT CARE PER NURSING PROTOCOL Performed By: #### L 501.080 ####[facility] [address] [place], [address] FINGERSTICK GLU 218 mg/dL High 74-106 [facility] Comment on above: Result Comment: BULL GEMENT OF PATIENT CARE PER NURSING PROTOCOL Performed By: #### L 501.080 ####[facility] [address] [place], [address] FINGERSTICK GLU 202 mg/dL High 74-106 [facility] Comment on above: Result Comment: BULL GEMENT OF PATIENT CARE PER NURSING PROTOCOL Performed By: #### L 501.080 ####[facility] [address] [place], [address] FINGERSTICK GLU 160 mg/dL High 74-106 [facility] Comment on above: Result Comment: BULL GEMENT OF PATIENT CARE PER NURSING PROTOCOL Performed By: #### L 501.080 ####[facility] [address] [place], [address] FINGERSTICK GLU 166 mg/dL High 74-106 [facility] Comment on above: Result Comment: BULL GEMENT OF PATIENT CARE PER NURSING PROTOCOL Performed By: #### L 501.080 ####[facility] [address] [place], [address] CBC W/Diff, Automatedon 05- Absolute Lymph 3.42 X10 3/uL Normal 0.83-4.51 [facility] Comment on above: Performed By: #### L 500.2500, L100.0100 ####[facility] [address] [place], [address] Absolute Neut 12.9 X10 3/uL High 2.0-7.7 [facility] Comment on above: Performed By: #### L 500.2500, L100.0100 ####[facility] [address] [place], [address] Basophils/100 WBC (Bld) 0.2 % Normal 0-1 [facility] Comment on above: Performed By: #### L 500.2500, L100.0100 ####[facility] [address] [place], [address] Eosinophils/100 WBC (Bld) 0.2 % Normal 0-5 [facility] Comment on above: Performed By: #### L 500.2500, L100.0100 ####[facility] [address] [place], [address] Erythrocyte distribution width (RBC) [Ratio] 13.9 % Normal 11.6-14.6 [facility] Comment on above: Performed By: #### L 500.2500, L100.0100 ####[facility] [address] [place], [address] Hematocrit (Bld) [Volume fraction] 34.2 % Low 37-47 [facility] Comment on above: Performed By: #### L 500.2500, L100.0100 ####[facility] [address] [place], [address] Hemoglobin (Bld) [Mass/Vol] 11.0 g/dL Low 12.0-15.0 [facility] Comment on above: Performed By: #### L 500.2500, L100.0100 ####[facility] [address] [place], [address] IG% 0.600 Normal 0.0-0.9 [facility] Comment on above: Result Comment: IG% - Immature Granulocytes (promyelocytes, myelocytes andmetamyelocytes) > 1% indicates that a LEFT SHIFT is Present. Performed By: #### L 500.2500, L100.0100 ####[facility] [address] [place], [place], [address] Lymphocytes/100 WBC (Bld) 19.4 % Normal 19-41 [facility] Comment on above: Performed By: #### L 500.2500, L100.0100 ####[facility] [address] [place], [address] MCH (RBC) [Entitic mass] 27.0 pg Normal 27.0-32.0 [facility] Comment on above: Performed By: #### L 500.2500, L100.0100 ####[facility] [address] [place], [address] MCHC (RBC) [Mass/Vol] 32.2 g/dL Normal 32-36 [facility] Comment on above: Performed By: #### L 500.2500, L100.0100 ####[facility] [address] [place], [address] MCV (RBC) [Entitic vol] 83.8 fL Normal 81-99 [facility] Comment on above: Performed By: #### L 500.2500, L100.0100 ####[facility] [address] [place], [address] Monocytes/100 WBC (Bld) 6.2 % Normal 0-10 [facility] Comment on above: Performed By: #### L 500.2500, L100.0100 ####[facility] [address] [place], [address] Neutrophils/100 WBC (Bld) 73.4 % High 47-70 [facility] Comment on above: Performed By: #### L 500.2500, L100.0100 ####[facility] [address] [place], [address] Nucleated RBC (Bld) [#/Vol] 0 10*3/uL Normal 0-5 [facility] Comment on above: Performed By: #### L 500.2500, L100.0100 ####[facility] [address] [place], [address] Platelet mean volume (Bld) [Entitic vol] 9.8 fL Normal 6.2-12.0 [facility] Comment on above: Performed By: #### L 500.2500, L100.0100 ####[facility] [address] [place], [address] Platelets (Bld) [#/Vol] 308 10*3/uL Normal 150-450 [facility] Comment on above: Performed By: #### L 500.2500, L100.0100 ####[facility] [address] [place], [address] RBC (Bld) [#/Vol] 4.08 10*6/uL Low 4.2-5.4 [facility] Comment on above: Performed By: #### L 500.2500, L100.0100 ####[facility] [address] [place], [address] RDW SD 43.0 fl Normal 35.1-43.9 [facility] Comment on above: Performed By: #### L 500.2500, L100.0100 ####[facility] [address] [place], [address] WBC (Bld) [#/Vol] 17.6 10*3/uL High 4.4-11.0 [facility] Comment on above: Performed By: #### L 500.2500, L100.0100 ####[facility] [address] [place], [address] Abdomen/Pelvis W IV Cont ONL Yon 11-25-2024 Abdomen/Pelvis W IV Cont ONLY Normal [facility] Absolute lymphocyte countOrd ered By: Drew Hinson on 11-25-2024 Lymphocytes Auto (Unsp spec) [#/Vol] 3.09 10*3/uL 0.83-4.51 [facility] Absolute neutrophil countOrd ered By: Drew Hinson on 11-25-2024 Neutrophils (Bld) [#/Vol] 21.5 10*3/uL High 2.0-7.7 [facility] Acute Abdomen Inc Cheston Acute Abdomen Inc Chest Normal [facility] Amorphous sediment detection in urine sediment by light microscopyOrdered By: Drew Hinson on 11-25-2024 Amorphous sediment LM Ql (Urine sed) 2+ URATE [facility] Anion gap in Serum or Plasma Ordered By: Drew Hinson on 11-25-2024 Anion gap [Moles/Vol] 17 mmol/L High 5-15 [facility] Automated lymphocyte count a s percentage of total leukocytesOrdered By: Drew Hinson on 11-25-2024 Lymphocytes/100 WBC Auto (Unsp spec) 11.4 % Low 19-41 [facility] BUN/creatinine ratioOrdered By: Drew Hinson on 11-25-2024 Urea nitrogen/Creatinine [Mass ratio] 15.9 mg/mg 10- [facility] Basic Metabolic Profile (BMP )on 11-25-2024 BUN/CRE 15.9 RATIO Normal - [facility] Comment on above: Performed By: #### L 700.6800, L500.2500, L100.0100 ####[facility] [address] [place], [address] Calcium [Mass/Vol] 9.6 mg/dL Normal 7.6-11.0 [facility] Comment on above: Performed By: #### L 700.6800, L500.2500, L100.0100 ####[facility] [address] [place], [address] Chloride [Moles/Vol] 97 mmol/L Low 98-108 [facility] Comment on above: Performed By: #### L 700.6800, L500.2500, L100.0100 ####[facility] [address] [place], [address] CO2 [Moles/Vol] 21.3 mmol/L Normal 21.0-32.0 [facility] Comment on above: Performed By: #### L 700.6800, L500.2500, L100.0100 ####[facility] [address] [place], [address] Creatinine [Mass/Vol] 1.20 mg/dL Normal 0.70-1.20 [facility] Comment on above: Performed By: #### L 700.6800, L500.2500, L100.0100 ####[facility] [address] [place], [address] ECRCL 86.69 ml/min Normal 50-250 [facility] Comment on above: Performed By: #### L 700.6800, L500.2500, L100.0100 ####[facility] [address] [place], [address] GAP 17 High 5-15 [facility] Comment on above: Performed By: #### L 700.6800, L500.2500, L100.0100 ####[facility] [address] [place], [address] GFR/1.73 sq M.predicted among non-blacks MDRD (S/P/Bld) [Vol rate/Area] 62 mL/min/{1.73_m2} Normal >60 [facility] Comment on above: Result Comment: mL/m in/1.73m2 CKD-EPI Creatinine Equation (2020) Performed By: #### L 700.6800, L500.2500, L100.0100 ####[facility] [address] [place], [address] Glucose [Mass/Vol] 203 mg/dL High 70-99 [facility] Comment on above: Performed By: #### L 700.6800, L500.2500, L100.0100 ####[facility] [address] [place], [address] Potassium [Moles/Vol] 4.0 mmol/L Normal 3.3-5.1 [facility] Comment on above: Performed By: #### L 700.6800, L500.2500, L100.0100 ####[facility] [address] [place], [address] Sodium [Moles/Vol] 135 mmol/L Normal 133-145 [facility] Comment on above: Performed By: #### L 700.6800, L500.2500, L100.0100 ####[facility] [address] [place], [address] Urea nitrogen [Mass/Vol] 19 mg/dL Normal 4-19 [facility] Comment on above: Performed By: #### L 700.6800, L500.2500, L100.0100 ####[facility] [address] [place], [address] Basophil percentageOrdered B y: Drew Vegacarole on 11-25-2024 Basophils/100 WBC (Bld) 0.3 % 0-1 [facility] Bedside Glucoseon 11-25-2024 FINGERSTICK GLU 139 mg/dL High 74-106 [facility] Comment on above: Result Comment: BULL GEMENT OF PATIENT CARE PER NURSING PROTOCOL Performed By: #### L 501.080 ####[facility] [address] [place], [place], [address] Bilirubin Test strip Ql (U)O rdered By: Drew Hinson on 11-25-2024 Bilirubin Ql (U) 1 mg/dL High Negative [facility] Comment on above: COLOR OF URINE MAY A FFECT DIPSTICK RESULTS. Blood cultureOrdered By: Dwight Hinson on 11-25-2024 Bacteria identified Cx Nom (Bld) No growth in 5 days. [facility] Bacteria identified Cx Nom (Bld) No growth in 5 days. [facility] CBC W/Diff, Automatedon 11-09 PLT EST A Normal ADEQ [facility] Comment on above: Performed By: #### L 700.6800, L500.2500, L100.0100 ####[facility] [address] [place], [address] Carbon dioxide, total [Moles /volume] in Central venous bloodOrdered By: Drew Hinson on 11-25-2024 CO2 [Moles/Vol] 21.3 mmol/L 21.0-32.0 [facility] Chloride assayOrdered By: Katia Hinson on 11-25-2024 Chloride [Moles/Vol] 97 mmol/L Low 98-108 [facility] Consultation - Surgicalon Consultation - Surgical Normal [facility] Emergency Department Summary on 11-25-2024 Emergency Department Summary Normal [facility] Eosinophil percentageOrdered By: Drew Hinson on 11-25-2024 Eosinophils/100 WBC (Bld) 0.1 % 0-5 [facility] Erythrocyte distribution wid th ratioOrdered By: Drew Hinson on 11-25-2024 Erythrocyte distribution width (RBC) [Ratio] 14.2 % 11.6-14.6 [facility] Erythrocyte distribution wid th standard deviationOrdered By: Drew Hinson on 11-25-2024 Erythrocyte distribution width (RBC) [Ratio] 41.1 fl 35.1-43.9 [facility] Glomerular filtration rate ( GFR) estimation/1.73 sq m using serum, plasma, or whole bOrdered By: Drew Hinson on 11-25-2024 GFR/1.73 sq M.predicted among non-blacks MDRD (S/P/Bld) [Vol rate/Area] 62 mL/min/{1.73_m2} >60 [facility] Comment on above: mL/min/1.73m2 CKD-EP I Creatinine Equation (2020) H AND P Exam - Hospitaliston 11-25-2024 H&P Exam - Hospitalist Normal [facility] [place] Hematocrit Auto (Bld) [Volum e fraction]Ordered By: Drew Hinson on 11-25-2024 Hematocrit (Bld) [Volume fraction] 42.3 % 37-47 [facility] Hemoglobin measurementOrdere d By: Drew Hinson on 11-25-2024 Hemoglobin (Bld) [Mass/Vol] 14.1 g/dL 12.0-15.0 [facility] Hyaline casts LM.LPF (Urine sed) [#/Area]Ordered By: Drew Hinson on 11-25-2024 Hyaline casts (Urine sed) [#/Area] 0 /[LPF] 0-5 [facility] Immature granulocytes/100 WB C Auto (Bld)Ordered By: Drew Hinson on 11-25-2024 Immature granulocytes/100 WBC (Bld) 0.700 % 0.0-0.9 [facility] Comment on above: IG% - Immature Granu locytes (promyelocytes, myelocytes and metamyelocytes) > 1% indicates that a LEFT SHIFT is Present. Ketones Test strip Ql (U)Ord ered By: Drew Hinson on 11-25-2024 Ketones Ql (U) 5 mg/dl High Negative [facility] Lactic Acidon 11-25-2024 Lactate [Moles/Vol] 1.5 mmol/L Normal 0.0-2.0 [facility] Comment on above: Order Comment: Y Performed By: #### M 200.1000, L503.6005 ####[facility] [address] [place], [place], [address] Lactic acid measurementOrder ed By: Drew Hinson on 11-25-2024 Lactate [Moles/Vol] 1.5 mmol/L 0.0-2.0 [facility] MCV (mean corpuscular volume ) determinationOrdered By: Drew Hinson on 11-25-2024 MCV (RBC) [Entitic vol] 81.2 fL 81-99 [facility] Mean corpuscular hemoglobin (MCH) determinationOrdered By: Drew Hinson on 11-25-2024 MCH (RBC) [Entitic mass] 27.1 pg 27.0-32.0 [facility] Mean corpuscular hemoglobin concentration (MCHC) determinationOrdered By: Drew Hinson on 11-25-2024 MCHC (RBC) [Mass/Vol] 33.3 g/dL 32-36 [facility] Mean platelet volume determi nationOrdered By: Drew Hinson on 11-25-2024 Platelet mean volume (Bld) [Entitic vol] 9.4 fL 6.2-12.0 [facility] Microscopic analysis of urin e for red blood cells (RBC)Ordered By: Drew Hinson on 11-25-2024 Microscopic analysis of urine for red blood cells (RBC) 0-5 SEEN /hpf 0-5 [facility] Monocyte percentageOrdered B y: Drew Hinson on 11-25-2024 Monocytes/100 WBC (Bld) 8.0 % 0-10 [facility] Mucus LM Ql (Urine sed)Order ed By: Drew Hinson on 11-25-2024 Mucus Ql (Urine sed) 0 SEEN /hpf [facility] Neutrophil percentageOrdered By: Drew Hinson on 11-25-2024 Neutrophils/100 WBC (Bld) 79.5 % High 47-70 [facility] Nitrite Test strip Ql (U)Ord ered By: Drew Hinson on 11-25-2024 Nitrite Ql (U) Negative Negative [facility] Nucleated red blood cell per centageOrdered By: Drew Hinson on 11-25-2024 Nucleated RBC/100 WBC (Bld) [Ratio] 0 % 0-5 [facility] Platelet countOrdered By: Katia Hinson on 11-25-2024 Platelets (Bld) [#/Vol] 400 10*3/uL 150-450 [facility] Platelet estimateOrdered By: Drew Hinson on 11-25-2024 Platelets LM Ql (Bld) A ADEQ [facility] Potassium measurement (mass/ volume)Ordered By: Drew Hinson on 11-25-2024 Potassium (Unsp spec) [Mass/Vol] 4.0 mmol/L 3.3-5.1 [facility] ,Serum,hCG Quali.on 11-25-2024 HCG, SERUM QUAL Negative Normal [facility] Comment on above: Performed By: #### L 700.6800, L500.2500, L100.0100 ####[facility] [address] [place], [place], [address] Protein Test strip Ql (U)Ord ered By: Drew Hinson on 11-25-2024 Protein Ql (U) 30 mg/dl High Negative [facility] RBC Auto (Bld) [#/Vol]Ordere d By: Drew Hinson on 11-25-2024 RBC (Bld) [#/Vol] 5.21 10*6/uL 4.2-5.4 [facility] Serum beta-hCG test, qualita tiveOrdered By: Drew Hinson on 11-25-2024 Beta HCG ( test) Ql Negative [facility] Serum creatinine measurement (mass/volume)Ordered By: Drew Hinson on 11-25-2024 Creatinine [Mass/Vol] 1.20 mg/dL 0.70-1.20 [facility] Serum glucose measurement (m ass/volume)Ordered By: Drew Hinson on 11-25-2024 Glucose [Mass/Vol] 203 mg/dL High 70-99 [facility] Serum or plasma calcium hussein urement (mass/volume)Ordered By: Drew Hinson on 11-25-2024 Calcium [Mass/Vol] 9.6 mg/dL 7.6-11.0 [facility] Serum or plasma urea nitroge n measurement (mass/volume)Ordered By: Drew Hinson on 11-25-2024 Urea nitrogen [Mass/Vol] 19 mg/dL 4-19 [facility] Sodium levelOrdered By: Drew Hinson on 11-25-2024 Sodium [Moles/Vol] 135 mmol/L 133-145 [facility] Squamous epithelial cells de tection in urine sediment by light microscopyOrdered By: Drew Hinson on 11-25-2024 Epithelial cells.squamous LM Ql (Urine sed) 0-5 SEEN /hpf 5-10 [facility] Urinalysis, Completeon 11-25 CAST,HYALINE 0-5 SEEN Normal 0-5 [facility] Comment on above: Order Comment: CLEAN CATCH Performed By: #### L 400.0001 ####[facility] [address] [place], [address] AMORPHOUS 2+ URATE Normal [facility] Comment on above: Order Comment: CLEAN CATCH Performed By: #### L 400.0001 ####[facility] [address] [place], [address] EPI,SQUAMOUS 0-5 SEEN Normal 5-10 [facility] Comment on above: Order Comment: CLEAN CATCH Performed By: #### L 400.0001 ####[facility] [address] [place], [address] RBC 0-5 SEEN Normal 0-5 [facility] Comment on above: Order Comment: CLEAN CATCH Performed By: #### L 400.0001 ####[facility] [address] [place], [address] WBC 0-5 SEEN Normal 0-5 [facility] Comment on above: Order Comment: CLEAN CATCH Performed By: #### L 400.0001 ####[facility] [address] [place], [address] BACTERIA 0 SEEN Normal None Seen [facility] Comment on above: Order Comment: CLEAN CATCH Performed By: #### L 400.0001 ####[facility] [address] [place], [address] Mucus Ql (Urine sed) 0 SEEN Normal [facility] Comment on above: Order Comment: CLEAN CATCH Performed By: #### L 400.0001 ####[facility] [address] [place], [address] Urine clarityOrdered By: Dwight Hinson on 11-25-2024 Clarity (U) Cloudy Clear [facility] Urine color determinationOrd ered By: Drew Hinson on 11-25-2024 Color (U) Yellow Yellow [facility] Urine glucose detectionOrder ed By: Drew Hinson on 11-25-2024 Glucose Ql (U) Normal mg/dl Normal [facility] Urine leukocyte esterase det ection by dipstickOrdered By: Drew Hinson on 11-25-2024 Leukocyte esterase Test strip Ql (U) Negative Negative [facility] Urine pHOrdered By: Drew castellanos on 11-25-2024 pH (U) 6.0 [pH] 5.0 - 8.0 [facility] Urine sediment bacteria coun t by microscopy (number/high power field)Ordered By: Drew Hinson on 11-25-2024 Bacteria LM.HPF (Urine sed) [#/Area] 0 /[HPF] None Seen [facility] Urine specific gravity measu rementOrdered By: Drew Hinson on 11-25-2024 Specific gravity (U) [Rel density] 1.025 1.002-1.030 [facility] Urine urobilinogen measureme ntOrdered By: Drew Hinson on 11-25-2024 Urobilinogen Ql (U) 1 mg/dl High Normal [facility] White blood cell (WBC) count Ordered By: Drew Hinson on 11-25-2024 WBC (Bld) [#/Vol] 27.0 10*3/uL High 4.4-11.0 [facility] White blood cell countOrdere d By: Drew Hinson on 11-25-2024 White blood cell count 0-5 SEEN /hpf 0-5 [facility] Arterial study reportOrdered By: Tony Dwyer on 10-25-2024 Noninvasive arteriosclerosis study report [facility] [address] [place] [address] Lower Ext Art Exam w/o Exercis 10/25/24 0847 MR#: [id number] Acct: [id number] Name: GHISLAINE GIVENS Rep #:[id number] : 1990 34 From: Tony Dwyer MD Attending Dr: Dr. Abdirizak Forrest DPM Status: REG CLI Ordering Dr: Abdirizak Forrest DPPrisca Date: 10/25/24 Location: [facility] Sex: F C Admitted: Reason For [...] Dwyer MD CC: DPM Dr. Abdirizak Forrest; [facility] [employer] Amy Solorzano ~ Date Dictated: 10/25/2447 Date Transcribed: 10/25/242211 Grade Foreman: Signed [facility] Other Phone: Lower Ext Art Exam w/o Exerc rudy 10-25-2024 Lower Ext Art Exam w/o Exercis Normal [facility] Venous Duplex US - Tayo Extre mon 10-25-2024 Venous Duplex US - Tayo Extrem Normal [facility] Venous duplex ultrasound rep ortOrdered By: Tony Dwyer on 10-25-2024 US Vein [facility] [address] [place] [address] Venous Duplex US - Tayo Extrem 10/25/24805 MR#: [id number] Acct: [id number] Name: GHISLAINE GIVENS Rep #:[id number] : 1990 34 From: Tony Dwyer MD [...] competent and measures 0.21 x 0.23 INCOMPETENT vegetable grader noted 8 cm above medial cm. maleolus. [...] right proximal calf is incompetent. 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 Ordering Physician: Abdirizak Forrest Referring Physician: Amy Solorzano Performed By: Saima De La Torre RVT 10/25/242200 Date _ Tony Dwyer MD CC: DPM Dr. Abdirizak Forrest; [facility] [employer] Amy Solorzano ~ Date Dictated: 10/25/24805 Date Transcribed: 10/25/242200 Grade Foreman: Signed [facility] Other Phone: Absolute lymphocyte countOrd ered By: [facility] Amy Solorzano on 10-17-2024 Lymphocytes Auto (Unsp spec) [#/Vol] 3.16 10*3/uL 0.83-4.51 [facility] Absolute neutrophil countOrd ered By: [facility] Amy Solorzano on 10-17-2024 Neutrophils (Bld) [#/Vol] 6.6 10*3/uL 2.0-7.7 [facility] Albumin DL <= 20 mg/L (U) [M ass/Vol]Ordered By: [facility] Amy Solorzano on 10-17-2024 Urine Random Microalbumin < 12.0 mg/L NO RANGE EST. [facility] Anion gap in Serum or Plasma Ordered By: [facility] Amy Solorzano on 10-17-2024 Anion gap [Moles/Vol] 14 mmol/L 5-15 [facility] Automated lymphocyte count a s percentage of total leukocytesOrdered By: [facility]my[facility]ma Solorz[facility] on 10-17-2024 Lymphocytes/100 WBC Auto (Unsp spec) 29.7 % 19-41 [facility] BUN/creatinine ratioOrdered By: [facility] Amy Solorzano on 10-17-2024 Urea nitrogen/Creatinine [Mass ratio] 14.4 mg/mg 10-20 [facility] Basophil percentageOrdered B y: [facility] Amy Solorzano on 10-17-2024 Basophils/100 WBC (Bld) 0.4 % 0-1 [facility] Bilirubin, totalOrdered By: [facility] Amy Solorzano on 10-17-2024 Bilirubin [Mass/Vol] 0.21 mg/dL 0.00-1.30 [facility] CBC W/Diff, Automatedon Absolute Lymph 3.16 X10 3/uL Normal 0.83-4.51 [facility] Comment on above: Performed By: #### L 501.9520, L500.4100, L500.4050, L100.0100, L506.1001, L502.0500 ####[facility] [address] [place], [address] Absolute Neut 6.6 X10 3/uL Normal 2.0-7.7 [facility] Comment on above: Performed By: #### L 501.9520, L500.4100, L500.4050, L100.0100, L506.1001, L502.0500 ####[facility] [address] [place], [address] Basophils/100 WBC (Bld) 0.4 % Normal 0-1 [facility] Comment on above: Performed By: #### L 501.9520, L500.4100, L500.4050, L100.0100, L506.1001, L502.0500 ####[facility] [address] [place], [address] Eosinophils/100 WBC (Bld) 0.7 % Normal 0-5 [facility] Comment on above: Performed By: #### L 501.9520, L500.4100, L500.4050, L100.0100, L506.1001, L502.0500 ####[facility] [address] [place], [address] Erythrocyte distribution width (RBC) [Ratio] 14.1 % Normal 11.6-14.6 [facility] Comment on above: Performed By: #### L 501.9520, L500.4100, L500.4050, L100.0100, L506.1001, L502.0500 ####[facility] [address] [place], [address] Hematocrit (Bld) [Volume fraction] 39.5 % Normal 37-47 [facility] Comment on above: Performed By: #### L 501.9520, L500.4100, L500.4050, L100.0100, L506.1001, L502.0500 ####[facility] [address] [place], [address] Hemoglobin (Bld) [Mass/Vol] 12.8 g/dL Normal 12.0-15.0 [facility] Comment on above: Performed By: #### L 501.9520, L500.4100, L500.4050, L100.0100, L506.1001, L502.0500 ####[facility] [address] [place], [address] IG% 1.000 High 0.0-0.9 [facility] Comment on above: Result Comment: IG% - Immature Granulocytes (promyelocytes, myelocytes andmetamyelocytes) > 1% indicates that a LEFT SHIFT is Present. Performed By: #### L 501.9520, L500.4100, L500.4050, L100.0100, L506.1001, L502.0500 ####[facility] [address] [place], [address] Lymphocytes/100 WBC (Bld) 29.7 % Normal 19-41 [facility] Comment on above: Performed By: #### L 501.9520, L500.4100, L500.4050, L100.0100, L506.1001, L502.0500 ####[facility] [address] [place], [address] MCH (RBC) [Entitic mass] 26.6 pg Low 27.0-32.0 [facility] Comment on above: Performed By: #### L 501.9520, L500.4100, L500.4050, L100.0100, L506.1001, L502.0500 ####[facility] [address] [place], [address] MCHC (RBC) [Mass/Vol] 32.4 g/dL Normal 32-36 [facility] Comment on above: Performed By: #### L 501.9520, L500.4100, L500.4050, L100.0100, L506.1001, L502.0500 ####[facility] [address] [place], [address] MCV (RBC) [Entitic vol] 82.1 fL Normal 81-99 [facility] Comment on above: Performed By: #### L 501.9520, L500.4100, L500.4050, L100.0100, L506.1001, L502.0500 ####[facility] [address] [place], [address] Monocytes/100 WBC (Bld) 6.0 % Normal 0-10 [facility] Comment on above: Performed By: #### L 501.9520, L500.4100, L500.4050, L100.0100, L506.1001, L502.0500 ####[facility] [address] [place], [address] Neutrophils/100 WBC (Bld) 62.2 % Normal 47-70 [facility] Comment on above: Performed By: #### L 501.9520, L500.4100, L500.4050, L100.0100, L506.1001, L502.0500 ####[facility] [address] [place], [address] Nucleated RBC (Bld) [#/Vol] 0 10*3/uL Normal 0-5 [facility] Comment on above: Performed By: #### L 501.9520, L500.4100, L500.4050, L100.0100, L506.1001, L502.0500 ####[facility] [address] [place], [address] Platelet mean volume (Bld) [Entitic vol] 9.7 fL Normal 6.2-12.0 [facility] Comment on above: Performed By: #### L 501.9520, L500.4100, L500.4050, L100.0100, L506.1001, L502.0500 ####[facility] [address] [place], [address] Platelets (Bld) [#/Vol] 332 10*3/uL Normal 150-450 [facility] Comment on above: Performed By: #### L 501.9520, L500.4100, L500.4050, L100.0100, L506.1001, L502.0500 ####[facility] [address] [place], [address] RBC (Bld) [#/Vol] 4.81 10*6/uL Normal 4.2-5.4 [facility] Comment on above: Performed By: #### L 501.9520, L500.4100, L500.4050, L100.0100, L506.1001, L502.0500 ####[facility] [address] [place], [address] RDW SD 41.9 fl Normal 35.1-43.9 [facility] Comment on above: Performed By: #### L 501.9520, L500.4100, L500.4050, L100.0100, L506.1001, L502.0500 ####[facility] [address] [place], [address] WBC (Bld) [#/Vol] 10.6 10*3/uL Normal 4.4-11.0 [facility] Comment on above: Performed By: #### L 501.9520, L500.4100, L500.4050, L100.0100, L506.1001, L502.0500 ####[facility] [address] [place], [address] Calculated very low density lipoprotein (VLDL) cholesterol measurementOrdered By: [facility] Amy Solorzano on 10-17-2024 Calculated very low density lipoprotein (VLDL) cholesterol measurement 57 mg/dL High 5-40 [facility] VLDL Cholesterol 57 mg/dL High 5-40 [facility] Carbon dioxide, total [Moles /volume] in Central venous bloodOrdered By: [facility] Amy Solorzano on 10-17-2024 CO2 [Moles/Vol] 21.8 mmol/L 21.0-32.0 [facility] Chloride assayOrdered By: [facility] Amy Solorzano on 10-17-2024 Chloride [Moles/Vol] 99 mmol/L 98-108 [facility] Comprehensive Metabolic Prof ilon 10-17-2024 Albumin [Mass/Vol] 3.7 g/dL Normal 3.5-5.0 [facility] Comment on above: Performed By: #### L 501.9520, L500.4100, L500.4050, L100.0100, L506.1001, L502.0500 ####[facility] [address] [place], [address] Albumin/Globulin [Mass ratio] 0.9 {ratio} Normal 0.9-2.4 [facility] Comment on above: Performed By: #### L 501.9520, L500.4100, L500.4050, L100.0100, L506.1001, L502.0500 ####[facility] [address] [place], [address] ALK PHOS 93 U/L Normal 35-104 [facility] Comment on above: Performed By: #### L 501.9520, L500.4100, L500.4050, L100.0100, L506.1001, L502.0500 ####[facility] [address] [place], [address] ALT [Catalytic activity/Vol] 12 U/L Normal <=34 [facility] Comment on above: Performed By: #### L 501.9520, L500.4100, L500.4050, L100.0100, L506.1001, L502.0500 ####[facility] [address] [place], [address] AST [Catalytic activity/Vol] 18 U/L Normal <=31 [facility] Comment on above: Performed By: #### L 501.9520, L500.4100, L500.4050, L100.0100, L506.1001, L502.0500 ####[facility] [address] [place], [address] Bilirubin [Mass/Vol] 0.21 mg/dL Normal 0.00-1.30 [facility] Comment on above: Performed By: #### L 501.9520, L500.4100, L500.4050, L100.0100, L506.1001, L502.0500 ####[facility] [address] [place], [address] BUN/CRE 14.4 RATIO Normal 10-20 [facility] Comment on above: Performed By: #### L 501.9520, L500.4100, L500.4050, L100.0100, L506.1001, L502.0500 ####[facility] [address] [place], [address] Calcium [Mass/Vol] 9.2 mg/dL Normal 7.6-11.0 [facility] Comment on above: Performed By: #### L 501.9520, L500.4100, L500.4050, L100.0100, L506.1001, L502.0500 ####[facility] [address] [place], [address] Chloride [Moles/Vol] 99 mmol/L Normal 98-108 [facility] Comment on above: Performed By: #### L 501.9520, L500.4100, L500.4050, L100.0100, L506.1001, L502.0500 ####[facility] [address] [place], [address] CO2 [Moles/Vol] 21.8 mmol/L Normal 21.0-32.0 [facility] Comment on above: Performed By: #### L 501.9520, L500.4100, L500.4050, L100.0100, L506.1001, L502.0500 ####[facility] [address] [place], [place], [phone] Creatinine [Mass/Vol] 0.84 mg/dL Normal 0.70-1.20 [facility] Comment on above: Performed By: #### L 501.9520, L500.4100, L500.4050, L100.0100, L506.1001, L502.0500 ####[facility] [address] [place], [place], [id number] GAP 14 Normal 5-15 [facility] Comment on above: Performed By: #### L 501.9520, L500.4100, L500.4050, L100.0100, L506.1001, L502.0500 ####[facility] [address] [place], [place], [id number] GFR/1.73 sq M.predicted among non-blacks MDRD (S/P/Bld) [Vol rate/Area] 95 mL/min/{1.73_m2} Normal >60 [facility] Comment on above: Result Comment: mL/m in/1.73m2 CKD-EPI Creatinine Equation (2020) Performed By: #### L 501.9520, L500.4100, L500.4050, L100.0100, L506.1001, L502.0500 ####[facility] [address] [place], [address] Globulin (S) [Mass/Vol] 3.9 g/dL Normal 2.2-4.2 [facility] Comment on above: Performed By: #### L 501.9520, L500.4100, L500.4050, L100.0100, L506.1001, L502.0500 ####[facility] [address] [place], [address] Glucose [Mass/Vol] 233 mg/dL High 70-99 [facility] Comment on above: Performed By: #### L 501.9520, L500.4100, L500.4050, L100.0100, L506.1001, L502.0500 ####[facility] [address] [place], [address] Potassium [Moles/Vol] 4.6 mmol/L Normal 3.3-5.1 [facility] Comment on above: Performed By: #### L 501.9520, L500.4100, L500.4050, L100.0100, L506.1001, L502.0500 ####[facility] [address] [place], [address] Sodium [Moles/Vol] 135 mmol/L Normal 133-145 [facility] Comment on above: Performed By: #### L 501.9520, L500.4100, L500.4050, L100.0100, L506.1001, L502.0500 ####[facility] [address] [place], [address] T PROT 7.5 g/dL Normal 5.9-8.4 [facility] Comment on above: Performed By: #### L 501.9520, L500.4100, L500.4050, L100.0100, L506.1001, L502.0500 ####[facility] [address] [place], [address] Urea nitrogen [Mass/Vol] 12 mg/dL Normal 4-19 [facility] Comment on above: Performed By: #### L 501.9520, L500.4100, L500.4050, L100.0100, L506.1001, L502.0500 ####[facility] [address] [place], [address] Eosinophil percentageOrdered By: [facility] Amy Solorzano on 10-17-2024 Eosinophils/100 WBC (Bld) 0.7 % 0-5 [facility] Erythrocyte distribution wid th (RBC) [Ratio]Ordered By: [facility] Amy Solorzano on 10-17-2024 Erythrocyte distribution width (RBC) [Entitic vol] 41.9 fL 35.1-43.9 [facility] Erythrocyte distribution wid th ratioOrdered By: [facility] Amy Solorzano on 10-17-2024 Erythrocyte distribution width (RBC) [Ratio] 14.1 % 11.6-14.6 [facility] Erythrocyte distribution wid th standard deviationOrdered By: [facility] Amy Solorzano on 10-17-2024 Erythrocyte distribution width (RBC) [Ratio] 41.9 fl 35.1-43.9 [facility] GFR/1.73 sq M.predicted taryn g non-blacks MDRD (S/P/Bld) [Vol rate/Area]Ordered By: [facility] Amy Solorzano on 10-17-2024 Estimated GFR (MDRD) Non-Af Amer 95 >60 [facility] Comment on above: mL/min/1.73m2 CKD-EP I Creatinine Equation (2020) Glomerular filtration rate ( GFR) estimation/1.73 sq m using serum, plasma, or whole bOrdered By: [facility] Amy Solorzano on 10-17-2024 GFR/1.73 sq M.predicted among non-blacks MDRD (S/P/Bld) [Vol rate/Area] 95 mL/min/{1.73_m2} >60 [facility] Comment on above: mL/min/1.73m2 CKD-EP I Creatinine Equation (2020) Hematocrit Auto (Bld) [Volum e fraction]Ordered By: [facility] Amy Solorzano on 10-17-2024 Hematocrit (Bld) [Volume fraction] 39.5 % 37-47 [facility] Hemoglobin measurementOrdere d By: [facility] Amykeiko Solorzano on 10-17-2024 Hemoglobin (Bld) [Mass/Vol] 12.8 g/dL 12.0-15.0 [facility] Immature granulocytes/100 WB C Auto (Bld)Ordered By: [facility] Amy Solorzano on 10-17-2024 Immature granulocytes/100 WBC (Bld) 1.000 % High 0.0-0.9 [facility] Comment on above: IG% - Immature Granu locytes (promyelocytes, myelocytes and metamyelocytes) > 1% indicates that a LEFT SHIFT is Present. LDL calc ser/plasOrdered By: [facility] Amy Solorzano on 10-17-2024 Cholesterol in LDL [Mass/Vol] 70 mg/dL [facility] Comment on above: Qeebeqrfeu=067-759 m g/dL & Higher Gbkj=324 mg/dL or greater LDL Cholesterol, Calculated 70 mg/dL [facility] Comment on above: Bzjphwlbij=456-467 m g/dL & Higher Dhqn=216 mg/dL or greater Laboratory - Chemistry and C hemistry - challengeOrdered By: [facility] Amy Solorzano on 10-17-2024 AST [Catalytic activity/Vol] 18 U/L <32 [facility] Lipid Profileon 10-17-2024 CHOL:HDL 4.44 Normal [facility] Comment on above: Performed By: #### L 501.9520, L500.4100, L500.4050, L100.0100, L506.1001, L502.0500 ####[facility] [address] [place], [address] Cholesterol [Mass/Vol] 164 mg/dL Normal <=200 [facility] [place] Comment on above: Result Comment: Chol esterol level, Desirable <200 mg/dLBorderline high cholesterol 200-239 mg/dLHigh cholesterol >=240 mg/dLRecommendations of the NCEP Adult Treatment Panel for thefollowing risk-cutoff thresholds for the [place] Americanchandler regional medical centerulation. Performed By: #### L 501.9520, L500.4100, L500.4050, L100.0100, L506.1001, L502.0500 ####[facility] [address] [place], [address] Cholesterol in HDL [Mass/Vol] 37 mg/dL Low [facility] Comment on above: Result Comment: Lupe onal Cholesterol Education Program (NCEP) guidelines:<40 mg/dL: Low HDL-cholesterol (major risk factor for CHD)>= 60 mg/dL: High HDL-cholesterol (negative risk factor forCHD)HDL-cholesterol is affected by a number of factors, e.g.smoking, exercise, hormones, sex and age. Performed By: #### L 501.9520, L500.4100, L500.4050, L100.0100, L506.1001, L502.0500 ####[facility] [address] [place], [address] Cholesterol in LDL [Mass/Vol] 70 mg/dL Normal [facility] Comment on above: Result Comment: Bord kxsrmf=431-097 mg/dL Higher Ucto=210 mg/dL or greater Performed By: #### L 501.9520, L500.4100, L500.4050, L100.0100, L506.1001, L502.0500 ####[facility] [address] [place], [address] Cholesterol in VLDL [Mass/Vol] 57 mg/dL High 5-40 [facility] Comment on above: Performed By: #### L 501.9520, L500.4100, L500.4050, L100.0100, L506.1001, L502.0500 ####[facility] [address] [place], [address] Triglyceride [Mass/Vol] 287 mg/dL High [facility] Comment on above: Result Comment: The drugs N-Acetylcysteine and Metamizole may falselydepress this assay.Normal range: <150 mg/dLBorderline High: 150-199 mg/dLHigh: 200-499 mg/dLVery High: >500 mg/dL Performed By: #### L 501.9520, L500.4100, L500.4050, L100.0100, L506.1001, L502.0500 ####[facility] [address] [place], [address] Lymphocytes Auto (Unsp spec) [#/Vol]Ordered By: [facility] Amy Solorzano on 10-17-2024 Lymphocytes (Bld) [#/Vol] 3.16 10*3/uL 0.83-4.51 [facility] Lymphocytes/100 WBC Auto (Un sp spec)Ordered By: [facility] Amy Solorzano on 10-17-2024 Lymphocytes/100 WBC (Bld) 29.7 % 19-41 [facility] MCV (mean corpuscular volume ) determinationOrdered By: [facility] Amy Solorzano on 10-17-2024 MCV (RBC) [Entitic vol] 82.1 fL 81-99 [facility] Mean corpuscular hemoglobin (MCH) determinationOrdered By: [facility] on 10-17-2024 MCH (RBC) [Entitic mass] 26.6 pg Low 27.0-32.0 [facility] Mean corpuscular hemoglobin concentration (MCHC) determinationOrdered By: [facility] Amy Solorzano on 10-17-2024 MCHC (RBC) [Mass/Vol] 32.4 g/dL 32-36 [facility] Mean platelet volume determi nationOrdered By: [facility] Amy Solorzano on 10-17-2024 Platelet mean volume (Bld) [Entitic vol] 9.7 fL 6.2-12.0 [facility] Microalbumin,Random Urineon 10-17-2024 MICROALBUMIN,UR < 12.0 Normal NO RANGE EST. [facility] Comment on above: Performed By: #### L 501.9520, L500.4100, L500.4050, L100.0100, L506.1001, L502.0500 ####[facility] [address] [place], [address] Monocyte percentageOrdered B y: [facility] Amy Solorzano on 10-17-2024 Monocytes/100 WBC (Bld) 6.0 % 0-10 [facility] Neutrophil percentageOrdered By: [facility] Amy Solorzano on 10-17-2024 Neutrophils/100 WBC (Bld) 62.2 % 47-70 [facility] No Panel InformationOrdered By: [facility] Amy Solorzano on 10-17-2024 18 U/L <32 [facility] Nucleated red blood cell per centageOrdered By: [facility] Amy Solorzano on 10-17-2024 Nucleated RBC/100 WBC (Bld) [Ratio] 0 % 0-5 [facility] Platelet countOrdered By: [facility] Amy Solorzano on 10-17-2024 Platelets (Bld) [#/Vol] 332 10*3/uL 150-450 [facility] Potassium (Unsp spec) [Mass/ Vol]Ordered By: [facility] Amy Solorzano on 10-17-2024 Potassium [Moles/Vol] 4.6 mmol/L 3.3-5.1 [facility] Potassium measurement (mass/ volume)Ordered By: [facility] Amy Solorzano on 10-17-2024 Potassium (Unsp spec) [Mass/Vol] 4.6 mmol/L 3.3-5.1 [facility] RBC Auto (Bld) [#/Vol]Ordere d By: [facility] Amy Solorzano on 10-17-2024 RBC (Bld) [#/Vol] 4.81 10*6/uL 4.2-5.4 [facility] Screening total cholesterol/ high density lipoprotein (HDL) cholesterol ratioOrdered By: [facility] Amy Solorzano on 10-17-2024 Cholesterol.total/Breonna sterol in HDL [Mass ratio] 4.44 {ratio} [facility] Serum creatinine measurement (mass/volume)Ordered By: [facility] Amy Solorzano on 10-17-2024 Creatinine [Mass/Vol] 0.84 mg/dL 0.70-1.20 [facility] Serum globulin measurementOr dered By: [facility] Amy Solorzano on 10-17-2024 Globulin (S) [Mass/Vol] 3.9 g/dL 2.2-4.2 [facility] Serum glucose measurement (m ass/volume)Ordered By: [facility] Amy Solorzano on 10-17-2024 Glucose [Mass/Vol] 233 mg/dL High 70-99 [facility] Serum or plasma alanine jordan otransferase (ALT) measurementOrdered By: [facility] Amy Solorzano on 10-17-2024 ALT [Catalytic activity/Vol] 12 U/L <35 [facility] Serum or plasma albumin hussein urement (mass/volume)Ordered By: [facility] Amy Solorzano on 10-17-2024 Albumin [Mass/Vol] 3.7 g/dL 3.5-5.0 [facility] Serum or plasma albumin/glob ulin mass ratioOrdered By: [facility] on 10-17-2024 Albumin/Globulin [Mass ratio] 0.9 {ratio} 0.9-2.4 [facility] Serum or plasma alkaline bradley sphatase measurementOrdered By: [facility] Amy Solorzano on 10-17-2024 ALP [Catalytic activity/Vol] 93 U/L 35-104 [facility] Serum or plasma calcium hussein urement (mass/volume)Ordered By: [facility] Amykeiko Solorzano 10-17-2024 Calcium [Mass/Vol] 9.2 mg/dL 7.6-11.0 [facility] Serum or plasma cholesterol in HDL measurement (mass/volume)Ordered By: [facility] Amykeiko Solorzano on 10-17-2024 Cholesterol in HDL [Mass/Vol] 37 mg/dL Low >40 [facility] Comment on above: National Cholesterol Education Program (NCEP) guidelines:<40 mg/dL: Low HDL-cholesterol (major risk factor for CHD)>= 60 mg/dL: High HDL-cholesterol (negative risk factor for CHD)HDL-cholesterol is affected by a number of factors, e.g. smoking, exercise, hormones, sex and age. Serum or plasma cholesterol measurement (mass/volume)Ordered By: [facility] Amy Solorzano on 10-17-2024 Cholesterol [Mass/Vol] 164 mg/dL <201 [facility] [place] Comment on above: Cholesterol level, D esirable <200 mg/dLBorderline high cholesterol 200-239 mg/dLHigh cholesterol >=240 mg/dLRecommendations of the NCEP Adult Treatment Panel for the following risk-cutoff thresholds for the [place] population. Serum or plasma urea nitroge n measurement (mass/volume)Ordered By: [facility] Amy Solorzano on 10-17-2024 Urea nitrogen [Mass/Vol] 12 mg/dL 4-19 [facility] Sodium levelOrdered By: [facility]my[facility] on 10-17-2024 Sodium [Moles/Vol] 135 mmol/L 133-145 [facility] TSH DL <= 0.005 mIU/L QnOrde red By: [facility] Amy Solorzano on 10-17-2024 Thyroid Stimulating Hormone (TSH) 1.180 uIU/mL 0.300-4.200 [facility] TSH Qn 1.180 uIU/mL 0.300-4.200 [facility] Thyroid Stim Hormone (TSH)on 10-17-2024 TSH 1.180 uIU/mL Normal 0.300-4.200 [facility] Comment on above: Performed By: #### L 501.9520, L500.4100, L500.4050, L100.0100, L506.1001, L502.0500 ####[facility] [address] [place], [place], [id number] Total proteinOrdered By: [facility] Amy Solorzano on 10-17-2024 Protein [Mass/Vol] 7.5 g/dL 5.9-8.4 [facility] Triglycerides measurementOrd ered By: [facility] Amy Solorzano on 10-17-2024 Triglyceride [Mass/Vol] 287 mg/dL High <199 [facility] Comment on above: The drugs N-Acetylcy steine and Metamizole may falsely depress this assay. Normal range: <150 mg/dLBorderline High: 150-199 mg/dLHigh: 200-499 mg/dLVery High: >500 mg/dL Urine albumin measurement wi detection limit of 20 mg/L or less (mass/volume)Ordered By: [facility] Amy Solorzano on 10-17-2024 Albumin DL <= 20 mg/L (U) [Mass/Vol] < 12.0 mg/L NO RANGE EST. [facility] Vitamin D, 25-hydroxyOrdered By: [facility] Amy Solorzaon on 10-17-2024 Vitamin D 25-Hydroxy 10.7 ng/mL Low 30-100 [facility] Comment on above: Vitamin D StatusDefi ciency: <20 ng/mL (50nmol/L)Insufficiency: 20-30 ng/mL (50-75 nmol/L)Sufficiency: 30-100 ng/mL (75-250 nmol/L)Toxicity: >100 ng/mL (>250 nmol/L) Vitamin D,25 Hydroxyon 10-17 Vitamin D 25-OH 10.7 ng/mL Low 30-100 [facility] Comment on above: Result Comment: Claudia min D StatusDeficiency: <20 ng/mL (50nmol/L)Insufficiency: 20-30 ng/mL (50-75 nmol/L)Sufficiency: 30-100 ng/mL (75-250 nmol/L)Toxicity: >100 ng/mL (>250 nmol/L) Performed By: #### L 501.9520, L500.4100, L500.4050, L100.0100, L506.1001, L502.0500 ####[facility] [address] [place], [address] White blood cell (WBC) count Ordered By: [facility] Amy Solorzano on 10-17-2024 WBC (Bld) [#/Vol] 10.6 10*3/uL 4.4-11.0 [facility] CNOVon 07-03-2024 CNOV Office Visit (UCTR ) GHISLAINE GIVENS ([id number]) 1990 F [facility] Date Time Provider Department 07/03/24 1:00 PM IRA[facility] During your visit today, we recorded the following information about you: Temperature Pulse Respiration Blood pressure 97 degrees 104/minute 16/minute 122/90 Weight Last Period 115.9 kg 06/20/24 Irais Hanna PA 07/03/2024 1:13 PM Signed This note was created using [facility] [employer]. Subjective Ghislaine Givens is a 34 year [...] a diabeti (more content not included)... Normal [facility] XR CHEST 2V FRONTAL/LATon XR CHEST [...] Low lung volumes. No acute radiographic abnormality. Grade Foreman: OLGA Transcribe Date/Time: Jul 03 2024 1:07P Dictated by : THANIA ROSS DO This examination was interpreted and the report reviewed and electronically signed by: THANIA ROSS DO on Jul 03 2024 1:08PM EST [id number] Normal [facility] XR Chest PA and Lateralon IMPRESSION: Low lung volumes. No acute radiographic abnormality. Grade Foreman: OLGA Transcribe Date/Time: Jul 03 2024 1:07P [...] soft tissues: Unremarkable. DIVISION OF RADIOLOGY Provider, [facility] - 07/03/2024 * * *Final [...] Low lung volumes. No acute radiographic abnormality. Grade Foreman: PSCB Transcribe Date/Time: Jul 03 2024 1:07P Dictated by : THANIA ROSS DO This examination was interpreted and the report reviewed and electronically signed by: THANIA ROSS DO on Jul 03 2024 1:08PM [facility] Radiology Study observation (narrative) [facility] XR Chest PA and LateralOrder ed By: [facility] Provider on 07-03-2024 [facility] CNOVon 06-26-2024 CNOV Office Visit (UCWSTR ) GHISLAINE GIVENS ([id number]) 1990 F [facility] Date Time Provider Department 06/26/24 10:30 AM FRANTZ AREVALO WS During your visit today, we recorded the following information about you: Temperature Pulse Respiration Blood pressure 97.4 degrees 117/minute 18/minute 122/78 Weight 115.7 kg Frantz Arevalo PA-C 06/26/2024 11:03 AM Signed This note was created using [facility] [employer]. Subjective Ghislaine Givens is a 34 year [...] powder T (more content not included)... Normal [facility] CBC W/Diff, Automatedon 10- Absolute Lymph 4.36 X10 3/uL Normal 0.83-4.51 [facility] Comment on above: Performed By: #### L 100.0100, L502.0500, L501.9520, L500.4050, L500.4100 ####[facility] [address] [place], [address] Absolute Neut 7.1 X10 3/uL Normal 2.0-7.7 [facility] Comment on above: Performed By: #### L 100.0100, L502.0500, L501.9520, L500.4050, L500.4100 ####[facility] [address] [place], [address] Basophils/100 WBC (Bld) 0.6 % Normal 0-1 [facility] Comment on above: Performed By: #### L 100.0100, L502.0500, L501.9520, L500.4050, L500.4100 ####[facility] [address] [place], [address] Eosinophils/100 WBC (Bld) 1.3 % Normal 0-5 [facility] Comment on above: Performed By: #### L 100.0100, L502.0500, L501.9520, L500.4050, L500.4100 ####[facility] [address] [place], [address] Erythrocyte distribution width (RBC) [Ratio] 13.6 % Normal 11.6-14.6 [facility] Comment on above: Performed By: #### L 100.0100, L502.0500, L501.9520, L500.4050, L500.4100 ####[facility] [address] [place], [address] Hematocrit (Bld) [Volume fraction] 41.6 % Normal 37-47 [facility] Comment on above: Performed By: #### L 100.0100, L502.0500, L501.9520, L500.4050, L500.4100 ####[facility] [address] [place], [address] Hemoglobin (Bld) [Mass/Vol] 13.1 g/dL Normal 12.0-15.0 [facility] Comment on above: Performed By: #### L 100.0100, L502.0500, L501.9520, L500.4050, L500.4100 ####[facility] [address] [place], [address] IG% 1.300 High 0.0-0.9 [facility] Comment on above: Result Comment: IG% - Immature Granulocytes (promyelocytes, myelocytes andmetamyelocytes) > 1% indicates that a LEFT SHIFT is Present. Performed By: #### L 100.0100, L502.0500, L501.9520, L500.4050, L500.4100 ####[facility] [address] [place], [address] Lymphocytes/100 WBC (Bld) 34.7 % Normal 19-41 [facility] Comment on above: Performed By: #### L 100.0100, L502.0500, L501.9520, L500.4050, L500.4100 ####[facility] [address] [place], [address] MCH (RBC) [Entitic mass] 26.3 pg Low 27.0-32.0 [facility] Comment on above: Performed By: #### L 100.0100, L502.0500, L501.9520, L500.4050, L500.4100 ####[facility] [address] [place], [address] MCHC (RBC) [Mass/Vol] 31.5 g/dL Low 32-36 [facility] Comment on above: Performed By: #### L 100.0100, L502.0500, L501.9520, L500.4050, L500.4100 ####[facility] [address] [place], [address] MCV (RBC) [Entitic vol] 83.5 fL Normal 81-99 [facility] Comment on above: Performed By: #### L 100.0100, L502.0500, L501.9520, L500.4050, L500.4100 ####[facility] [address] [place], [address] Monocytes/100 WBC (Bld) 5.4 % Normal 0-10 [facility] Comment on above: Performed By: #### L 100.0100, L502.0500, L501.9520, L500.4050, L500.4100 ####[facility] [address] [place], [address] Neutrophils/100 WBC (Bld) 56.7 % Normal 47-70 [facility] Comment on above: Performed By: #### L 100.0100, L502.0500, L501.9520, L500.4050, L500.4100 ####[facility] [address] [place], [address] Nucleated RBC (Bld) [#/Vol] 0 10*3/uL Normal 0-5 [facility] Comment on above: Performed By: #### L 100.0100, L502.0500, L501.9520, L500.4050, L500.4100 ####[facility] [address] [place], [address] Platelet mean volume (Bld) [Entitic vol] 9.4 fL Normal 6.2-12.0 [facility] Comment on above: Performed By: #### L 100.0100, L502.0500, L501.9520, L500.4050, L500.4100 ####[facility] [address] [place], [address] Platelets (Bld) [#/Vol] 368 10*3/uL Normal 150-450 [facility] Comment on above: Performed By: #### L 100.0100, L502.0500, L501.9520, L500.4050, L500.4100 ####[facility] [address] [place], [address] RBC (Bld) [#/Vol] 4.98 10*6/uL Normal 4.2-5.4 [facility] Comment on above: Performed By: #### L 100.0100, L502.0500, L501.9520, L500.4050, L500.4100 ####[facility] [address] [place], [address] RDW SD 41.3 fl Normal 35.1-43.9 [facility] Comment on above: Performed By: #### L 100.0100, L502.0500, L501.9520, L500.4050, L500.4100 ####[facility] [address] [place], [address] WBC (Bld) [#/Vol] 12.6 10*3/uL High 4.4-11.0 [facility] Comment on above: Performed By: #### L 100.0100, L502.0500, L501.9520, L500.4050, L500.4100 ####[facility] [address] [place], [address] Comprehensive Metabolic Prof [facility] 04-25-2024 Albumin [Mass/Vol] 3.3 g/dL Normal 3.2-5.0 [facility] Comment on above: Performed By: #### L 100.0100, L502.0500, L501.9520, L500.4050, L500.4100 ####[facility] [address] [place], [address] Albumin/Globulin [Mass ratio] 0.6 {ratio} Low 0.9-2.4 [facility] Comment on above: Performed By: #### L 100.0100, L502.0500, L501.9520, L500.4050, L500.4100 ####[facility] [address] [place], [address] ALK P 89 U/L Normal 45-117 [facility] Comment on above: Performed By: #### L 100.0100, L502.0500, L501.9520, L500.4050, L500.4100 ####[facility] [address] [place], [address] ALT [Catalytic activity/Vol] 24 U/L Normal 13-56 [facility] Comment on above: Performed By: #### L 100.0100, L502.0500, L501.9520, L500.4050, L500.4100 ####[facility] [address] [place], [address] AST [Catalytic activity/Vol] 9 U/L Low 15-37 [facility] Comment on above: Performed By: #### L 100.0100, L502.0500, L501.9520, L500.4050, L500.4100 ####[facility] [address] [place], [address] Bilirubin [Mass/Vol] 0.30 mg/dL Normal 0.20-1.00 [facility] Comment on above: Result Comment: For patients on eltrombopag therapy, use of Dimension [place] TBIL is not recommended. Performed By: #### L 100.0100, L502.0500, L501.9520, L500.4050, L500.4100 ####[facility] [address] [place], [address] BUN/CRE 13.5 RATIO Normal 10-20 [facility] Comment on above: Performed By: #### L 100.0100, L502.0500, L501.9520, L500.4050, L500.4100 ####[facility] [address] [place], [address] CA,Total 9.1 mg/dL Normal 8.5-10.1 [facility] Comment on above: Performed By: #### L 100.0100, L502.0500, L501.9520, L500.4050, L500.4100 ####[facility] [address] [place], [address] Chloride [Moles/Vol] 108 mmol/L High 98-107 [facility] Comment on above: Performed By: #### L 100.0100, L502.0500, L501.9520, L500.4050, L500.4100 ####[facility] [address] [place], [address] CO2 [Moles/Vol] 23.0 mmol/L Normal 21.0-32.0 [facility] Comment on above: Performed By: #### L 100.0100, L502.0500, L501.9520, L500.4050, L500.4100 ####[facility] [address] [place], [address] Creatinine [Mass/Vol] 0.89 mg/dL Normal 0.55-1.02 [facility] Comment on above: Result Comment: The validity of the calculated GFR GFRAA in patients over70 years has not been determined. Clinical correlation isessential. Performed By: #### L 100.0100, L502.0500, L501.9520, L500.4050, L500.4100 ####[facility] [address] [place], [address] EST GFR - AA 95 mL/min Normal >60 [facility] Comment on above: Result Comment: Afri can Dutch GFR Calc Performed By: #### L 100.0100, L502.0500, L501.9520, L500.4050, L500.4100 ####[facility] [address] [place], [address] GAP 7 Normal 5-15 [facility] Comment on above: Performed By: #### L 100.0100, L502.0500, L501.9520, L500.4050, L500.4100 ####[facility] [address] [place], [address] GFR/1.73 sq M.predicted among non-blacks MDRD (S/P/Bld) [Vol rate/Area] 78 mL/min/{1.73_m2} Normal >60 [facility] Comment on above: Result Comment: Non- GFR Calc Performed By: #### L 100.0100, L502.0500, L501.9520, L500.4050, L500.4100 ####[facility] [address] [place], [address] Globulin (S) [Mass/Vol] 5.2 g/dL High 2.2-4.2 [facility] Comment on above: Performed By: #### L 100.0100, L502.0500, L501.9520, L500.4050, L500.4100 ####[facility] [address] [place], [address] Glucose [Mass/Vol] 177 mg/dL High 74-106 [facility] Comment on above: Result Comment: Fast ing Glucose result greater than or equal to 126 mg/dLsuggests DIABETES MELLITUS per A.D.A. criteria. Performed By: #### L 100.0100, L502.0500, L501.9520, L500.4050, L500.4100 ####[facility] [address] [place], [address] Potassium [Moles/Vol] 4.2 mmol/L Normal 3.5-5.1 [facility] Comment on above: Performed By: #### L 100.0100, L502.0500, L501.9520, L500.4050, L500.4100 ####[facility] [address] [place], [address] Sodium [Moles/Vol] 137 mmol/L Normal 136-145 [facility] Comment on above: Performed By: #### L 100.0100, L502.0500, L501.9520, L500.4050, L500.4100 ####[facility] [address] [place], [address] T PROT 8.5 g/dL High 6.4-8.2 [facility] Comment on above: Performed By: #### L 100.0100, L502.0500, L501.9520, L500.4050, L500.4100 ####[facility] [address] [place], [address] Urea nitrogen [Mass/Vol] 12 mg/dL Normal 7-18 [facility] Comment on above: Performed By: #### L 100.0100, L502.0500, L501.9520, L500.4050, L500.4100 ####[facility] [address] [place], [address] Lipid Profileon 04-25-2024 Cholesterol [Mass/Vol] 209 mg/dL High 200 [facility] Comment on above: Result Comment: <200 mg/dL Desirable 200-240 mg/dL Borderline >240 mg/dL High Risk Performed By: #### L 100.0100, L502.0500, L501.9520, L500.4050, L500.4100 ####[facility] [address] [place], [address] Cholesterol in HDL [Mass/Vol] 37 mg/dL Low [facility] Comment on above: Result Comment: The drugs N-Acetylcysteine and Metamizole may falselydepress this assay. Reference Range HDL <40 mg/dL Low HDL Cholesterol HDL >or= 60 mg/dL High HDL Cholesterol Performed By: #### L 100.0100, L502.0500, L501.9520, L500.4050, L500.4100 ####[facility] [address] [place], [address] Cholesterol in LDL [Mass/Vol] 127 mg/dL Normal 0-130 [facility] Comment on above: Performed By: #### L 100.0100, L502.0500, L501.9520, L500.4050, L500.4100 ####[facility] [address] [place], [address] Cholesterol in VLDL [Mass/Vol] 45 mg/dL High 5-40 [facility] Comment on above: Performed By: #### L 100.0100, L502.0500, L501.9520, L500.4050, L500.4100 ####[facility] [address] [place], [address] Triglyceride [Mass/Vol] 227 mg/dL High [facility] Comment on above: Result Comment: The drugs N-Acetylcysteine and Metamizole may falselydepress this assay.Serum Triglycerides Reference Interval Normal <150 mg/dL Borderline high 150 - 199 mg/dL High 200 - 499 mg/dL Very High > or = 500 mg/dL Performed By: #### L 100.0100, L502.0500, L501.9520, L500.4050, L500.4100 ####[facility] [address] [place], [address] Microalbumin,Random Urineon 04-25-2024 MICROALBUMIN,UR 147.0 mg/L Normal NO RANGE EST. [facility] Comment on above: Performed By: #### L 100.0100, L502.0500, L501.9520, L500.4050, L500.4100 ####[facility] [address] [place], [address] Thyroid Stim Hormone (TSH)on 04-25-2024 TSH 0.825 uIU/mL Normal 0.358-3.740 [facility] Comment on above: Performed By: #### L 100.0100, L502.0500, L501.9520, L500.4050, L500.4100 ####[facility] [address] [place], [address] Fungus cultureOrdered By: Neva Forrest on 07-23-2023 Fungus identified Cx Nom (Unsp spec) [facility] Fungus stainOrdered By: Jonas Forrest on 07-23-2023 Fungus identified Fungus stain Nom (Unsp spec) [facility] Glucose Glucometer (BldC) [M ass/Vol]Ordered By: Abdirizak Forrest on 07-23-2023 Glucose [Mass/Vol] 204 mg/dL 74-106 [facility] Comment on above: MANAGEMENT OF PATIEN T CARE PER NURSING PROTOCOL Laboratory - Chemistry and C hemistry - challengeOrdered By: Abdirahman Morton on 07-23-2023 HCG ( test) Ql (U) Negative [facility] Comment on above: Very dilute urine sp ecimens, as indicated by a low specificgravity, may not contain underwriting sales representative levels of hCG. If is still suspected, a first morning urinespecimen should be collected 48 hours later and tested. No Panel InformationOrdered By: Abdirahman Morton on 07-23-2023 Negative [facility] Laboratory - Chemistry and C hemistry - challengeOrdered By: Abdirahman Morton on 07-16-2023 Magnesium [Mass/Vol] 2.0 mg/dL 1.6-2.6 [facility] No Panel InformationOrdered By: Abdirahman Morton on 07-16-2023 2.0 mg/dL 1.6-2.6 [facility] 25(OH)D3 SerPl-mCncon 2023 25-hydroxyvitamin D3 [Mass/Vol] 9.5 ng/mL Low 31.0-80.0 [facility] Comment on above: Order Comment: Mahogany vargas Type: BLOOD SPECIMEN Ordering Facility: [facility] Address: [address] [place] [address], [place] [address] Result Comment: Clas sification of 25 [place] Vitamin D status: Deficiency/Insufficiency: < or = 30 ng/ml. Sufficiency/Optimal Levels: 31-80 ng/mL Toxicity: > 100 ng/mL. Test performed by chemiluminescent immunoassay. Performed By: #### 1 989-3 #### [facility] CLIA [id number] [address] [place] [address] [place] CBC panel Auto (Bld)on 07-14 Erythrocyte distribution width (RBC) [Ratio] 13.2 % Normal 11.5-15.0 [facility] Comment on above: Order Comment: Mahogany vargas Type: BLOOD SPECIMEN Ordering Facility: [facility] Address: [address] [place] [address] Performed By: #### 5 8410-2 #### [facility] CLIA [id number] [address] [place] [address] [place] Hematocrit (Bld) [Volume fraction] 41.9 % Normal 36.0-46.0 [facility] Comment on above: Order Comment: Speci men Type: BLOOD SPECIMEN Ordering Facility: [facility] Address: [address] [place] [address] Performed By: #### 5 8410-2 #### [facility] CLIA [id number] [address] [place] [address] [place] Hemoglobin (Bld) [Mass/Vol] 12.8 g/dL Normal 11.5-15.5 [facility] Comment on above: Order Comment: Speci men Type: BLOOD SPECIMEN Ordering Facility: [facility] Address: [address] [place] [address] Performed By: #### 5 8410-2 #### [facility] CLIA [id number] [address] [place] [address] [place] MCH (RBC) [Entitic mass] 26.1 pg Normal 26.0-34.0 [facility] Comment on above: Order Comment: Speci men Type: BLOOD SPECIMEN Ordering Facility: [facility] Address: [address] [place] [address] Performed By: #### 5 8410-2 #### [facility] CLIA [id number] [address] [place] [address] [place] MCHC (RBC) [Mass/Vol] 30.5 g/dL Normal 30.5-36.0 [facility] Comment on above: Order Comment: Speci men Type: BLOOD SPECIMEN Ordering Facility: [facility] Address: [address] [place] [address] Performed By: #### 5 8410-2 #### [facility] CLIA [id number] [address] [place] [address] [place] MCV (RBC) [Entitic vol] 85.3 fL Normal 80.0-100.0 [facility] Comment on above: Order Comment: Speci men Type: BLOOD SPECIMEN Ordering Facility: [facility] Address: [address] [place] [address] Performed By: #### 5 8410-2 #### [facility] CLIA [id number] [address] [place] [address] [place] Nucleated RBC (Bld) [#/Vol] 10*3/uL Normal <0.01 [facility] Comment on above: Order Comment: Speci men Type: BLOOD SPECIMEN Ordering Facility: [facility] Address: [address] [place] [address] Performed By: #### 5 8410-2 #### [facility] CLIA [id number] [address] [place] [address] [place] Platelet mean volume (Bld) [Entitic vol] 10.0 fL Normal 9.0-12.7 [facility] Comment on above: Order Comment: Speci men Type: BLOOD SPECIMEN Ordering Facility: [facility] Address: [address] [place] [address] Performed By: #### 5 8410-2 #### [facility] CLIA [id number] [address] [place] [address] [place] Platelets (Bld) [#/Vol] 417 10*3/uL High 150-400 [facility] Comment on above: Order Comment: Speci men Type: BLOOD SPECIMEN Ordering Facility: [facility] Address: [address] [place] [address] Performed By: #### 5 8410-2 #### [facility] CLIA [id number] [address] [place] [address] [place] RBC (Bld) [#/Vol] 4.91 10*6/uL Normal 3.90-5.20 [facility] Comment on above: Order Comment: Speci men Type: BLOOD SPECIMEN Ordering Facility: [facility] Address: [address] [place] [address], [place] [address] Performed By: #### 5 8410-2 #### [facility] CLIA [id number] [address] [place] [address] [place] WBC (Bld) [#/Vol] 7.59 10*3/uL Normal 3.70-11.00 [facility] Comment on above: Order Comment: Speci men Type: BLOOD SPECIMEN Ordering Facility: [facility] Address: [address] [place] [address], [place] [address] Performed By: #### 5 8410-2 #### [facility] CLIA [id number] [address] [place] [address] [place] Comprehensive metabolic 2000 panelon 07-14-2023 Albumin [Mass/Vol] 4.0 g/dL Normal 3.9-4.9 [facility] Comment on above: Order Comment: Speci men Type: BLOOD SPECIMEN Ordering Facility: [facility] Address: [address] [place] [address], [place] [address] Performed By: #### 3 016-3, 21757-0 #### [facility] CLIA [id number] [address] [place] [address] [place] ALP [Catalytic activity/Vol] 106 U/L Normal 34-123 [facility] Comment on above: Order Comment: Speci men Type: BLOOD SPECIMEN Ordering Facility: [facility] Address: [address] [place] [address], [place] [address] Performed By: #### 3 016-3, 82651-0 #### [facility] CLIA [id number] [address] [place] [id number] [place] ALT [Catalytic activity/Vol] 11 U/L Normal 7-38 [facility] Comment on above: Order Comment: Speci men Type: BLOOD SPECIMEN Ordering Facility: [facility] Address: [address], [place] [address] Performed By: #### 3 016-3, 87632-5 #### [facility] CLIA [id number] [address] [place] [address] [place] Anion gap [Moles/Vol] 14 mmol/L Normal 9-18 [facility] Comment on above: Order Comment: Speci men Type: BLOOD SPECIMEN Ordering Facility: [facility] Address: [address], [place] [address] Performed By: #### 3 016-3, 58455-3 #### [facility] CLIA [id number] [address] [place] [address] [place] AST [Catalytic activity/Vol] 13 U/L Normal 13-35 [facility] Comment on above: Order Comment: Speci men Type: BLOOD SPECIMEN Ordering Facility: [facility] Address: [address], [place] [address] Performed By: #### 3 016-3, 79257-1 #### [facility] CLIA [id number] [address] [place] [address] [place] Bilirubin [Mass/Vol] 0.3 mg/dL Normal 0.2-1.3 [facility] Comment on above: Order Comment: Speci men Type: BLOOD SPECIMEN Ordering Facility: [facility] Address: [address], [place] [address] Performed By: #### 3 016-3, 10204-7 #### [facility] CLIA [id number] [address] [place] [address] [place] Calcium [Mass/Vol] 9.6 mg/dL Normal 8.5-10.2 [facility] Comment on above: Order Comment: Speci men Type: BLOOD SPECIMEN Ordering Facility: [facility] Address: [address], [place] [address] Performed By: #### 3 016-3, 22764-1 #### [facility] CLIA [id number] [address] [place] [id number] [place] Chloride [Moles/Vol] 101 mmol/L Normal 97-105 [facility] Comment on above: Order Comment: Speci men Type: BLOOD SPECIMEN Ordering Facility: [facility] Address: [address] [place] [address], [place] [address] Performed By: #### 3 016-3, 29071-3 #### [facility] CLIA [id number] [address] [place] [address] [place] CO2 [Moles/Vol] 23 mmol/L Normal 22-30 [facility] Comment on above: Order Comment: Speci men Type: BLOOD SPECIMEN Ordering Facility: [facility] Address: [address] [place] [address], [place] [address] Performed By: #### 3 016-3, 71043-2 #### [facility] CLIA [id number] [address] [place] [address] [place] Creatinine [Mass/Vol] 0.69 mg/dL Normal 0.58-0.96 [facility] Comment on above: Order Comment: Speci men Type: BLOOD SPECIMEN Ordering Facility: [facility] Address: [address] [place] [address], [place] [address] Performed By: #### 3 016-3, 48282-5 #### [facility] CLIA [id number] [address] [place], [place] [id number] [place] Creatinine and Glomerular filtration rate.predicted panel (S/P/Bld) 119 mL/min/1.73m??? Normal >=60 [facility] Comment on above: Order Comment: Speci men Type: BLOOD SPECIMEN Ordering Facility: [facility] Address: [address] [place] [address], [place] [address] Result Comment: Samreen mated Glomerular Filtration Rate [...] actual GFR. Performed By: #### 3 016-3, 46069-9 #### [facility] CLIA [id number] [address] [place] [id number] [place] Glucose [Mass/Vol] 158 mg/dL High 74-99 [facility] Comment on above: Order Comment: Mahogany vargas Type: BLOOD SPECIMEN Ordering Facility: [facility] Address: [address] [place] [address], [place] [address] Result Comment: The [place] Diabetes Association (ADA) provides guidance for cutoff [...] Standards of Medical Care in Diabetes 2016, [place] Diabetes Association. Diabetes Care. 2016.39(Suppl 1). Performed By: #### 3 016-3, 25431-2 #### [facility] CLIA [id number] [address] [place] [id number] [place] Potassium [Moles/Vol] 4.4 mmol/L Normal 3.7-5.1 [facility] Comment on above: Order Comment: Mahogany vargas Type: BLOOD SPECIMEN Ordering Facility: [facility] Address: [address] [place] [address], [place] [address] Performed By: #### 3 016-3, 54485-2 #### [facility] CLIA [id number] [address] [address] [place] Protein [Mass/Vol] 7.5 g/dL Normal 6.3-8.0 [facility] Comment on above: Order Comment: Speci men Type: BLOOD SPECIMEN Ordering Facility: [facility] Address: [address] [place] [address] Performed By: #### 3 016-3, 60196-2 #### [facility] CLIA [id number] [address] [place] [address] [place] Sodium [Moles/Vol] 138 mmol/L Normal 136-144 [facility] Comment on above: Order Comment: Speci men Type: BLOOD SPECIMEN Ordering Facility: [facility] Address: [address] [place] [address] Performed By: #### 3 016-3, 34205-0 #### [facility] CLIA [id number] [address] [place] [address] [place] Urea nitrogen [Mass/Vol] 9 mg/dL Normal 7-21 [facility] Comment on above: Order Comment: Speci men Type: BLOOD SPECIMEN Ordering Facility: [facility] Address: [address] [place] [address] Performed By: #### 3 016-3, 44754-4 #### [facility] CLIA [id number] [address] [place] [address] [place] HbA1c (Bld)on 07-14-2023 Average glucose Estimated from glycated hemoglobin (Bld) [Mass/Vol] 163 mg/dL Normal [facility] Comment on above: Order Comment: Speci men Type: BLOOD SPECIMEN Ordering Facility: [facility] Address: [address] [place] [address] Result Comment: eAG: (Estimated average glucose) is a calculated value from HgbA1c and is underwriting sales representative of the average blood glucose level in the last 2-3 month period. Performed By: #### 5 5454-3 #### [facility] CLIA [id number] [address] [place] [address] [place] HbA1c (Bld) [Mass fraction] 7.3 % High 4.3-5.6 [facility] Comment on above: Order Comment: Mahogany vargas Type: BLOOD SPECIMEN Ordering Facility: [facility] Address: [address] [place] [address], [place] [address] Result Comment: [place] Diabetes Association guidelines indicate that patients with HgbA1c in the range 5.7-6.4% are at increased risk for development of diabetes, and intervention by lifestyle modification may be beneficial. HgbA1c greater or equal to 6.5% is considered diagnostic of diabetes. Performed By: #### 5 5454-3 #### [facility] CLIA [id number] [address] [place] [address] [place] TSH SerPl-aCncon 07-14-2023 TSH Qn 0.660 m[IU]/L Normal 0.270-4.200 [facility] [facility] Comment on above: Order Comment: Mahogany vargas Type: BLOOD SPECIMEN Ordering Facility: [facility] Address: [address] [place] [address], [place] [address] Result Comment: If t he patient is , TSH reference range varies by gestational period: First Trimester (weeks 9-12): 0.180-2.990 mIU/L Second Trimester: 0.110-3.980 mIU/L Third Trimester: 0.480-4.710 mIU/L Francois Matthews et al. A Practical Approach for the Verifications and Determination of Site- and Trimester-Specific Reference Intervals for Thyroid Function tests in . Thyroid, 2019:29:3:412-420. Emeka Farrar, et al. 2017 Guidelines of the [place] [employer] for the Diagnosis and Management of Thyroid Disease during and the . Thyroid, 2017:27:3:315-389. Performed By: #### 3 016-3, 12730-7 #### [facility] CLIA [id number] [address] [place] [address] [place] Absolute lymphocyte countOrd ered By: Willie Dhillon on 07-12-2023 Lymphocytes Auto (Unsp spec) [#/Vol] 4.46 10*3/uL 0.83-4.51 [facility] Basophil percentageOrdered B y: Willie Dhillon on 07-12-2023 Basophil percentage 5-10 SEEN /hpf 0-5 [facility] Basophil percentage 177 mg/dL 74-106 [facility] Basophil percentage 9.0 g/dL 6.4-8.2 [facility] Basophil percentage 0.60 mg/dL 0.20-1.00 [facility] Basophil percentage 136 mmol/L 136-145 [facility] Basophil percentage 4.2 mmol/L 3.5-5.1 [facility] Basophil percentage 100 mmol/L 98-107 [facility] Basophils (Bld) [#/Vol] 10.5 10*3/uL 4.4-11.0 [facility] Basophils (Bld) [#/Vol] 5.4 10*3/uL 2.0-7.7 [facility] Basophils/100 WBC (Bld) 51.3 % 47-70 [facility] Basophils/100 WBC (Bld) 0.3 % 0-5 [facility] Basophils/100 WBC (Bld) 0.4 % 0-1 [facility] Beta hCG serum qualOrdered B y: Willie Dhillon on 07-12-2023 Beta HCG ( test) Ql Negative [facility] Bilirubin Test strip Ql (U)O rdered By: Willie Dhillon on 07-12-2023 Bilirubin Ql (U) 1 mg/dL Negative [facility] Blood erythrocytes count (nu mber/volume)Ordered By: Willie Dhillon on 07-12-2023 RBC (Bld) [#/Vol] 5.20 10*6/uL 4.2-5.4 [facility] Blood hemoglobin measurement (mass/volume)Ordered By: Willie Dhillon on 07-12-2023 Hemoglobin (Bld) [Mass/Vol] 13.6 g/dL 12.0-15.0 [facility] Blood lymphocytes/100 leukoc ytesOrdered By: Willie Dhillon on 07-12-2023 Lymphocytes/100 WBC (Bld) 42.6 % 19-41 [facility] Blood monocytes/100 leukocyt esOrdered By: Willie Dhillon on 07-12-2023 Monocytes/100 WBC (Bld) 5.2 % 0-10 [facility] Blood platelet mean volumeOr dered By: Willie Dhillon on 07-12-2023 Platelet mean volume (Bld) [Entitic vol] 9.2 fL 6.2-12.0 [facility] Determination of erythrocyte mean corpuscular volume (MCV)Ordered By: Willie Dhillon on 07-12-2023 MCV (RBC) [Entitic vol] 82.7 fL 81-99 [facility] Hematocrit Auto (Bld) [Volum e fraction]Ordered By: Willie Dhillon on 07-12-2023 Hematocrit (Bld) [Volume fraction] 43.0 % 37-47 [facility] Ketones Test strip Ql (U)Ord ered By: Willie Dhillon on 07-12-2023 Ketones Ql (U) 5 mg/dl Negative [facility] MCHC Auto (RBC) [Mass/Vol]Or dered By: Willie Dhillon on 07-12-2023 MCHC (RBC) [Mass/Vol] 31.6 g/dL 32-36 [facility] Mucus LM Ql (Urine sed)Order ed By: Willie Dhillon on 07-12-2023 Mucus Ql (Urine sed) 0 SEEN /hpf [facility] Nitrite Test strip Ql (U)Ord ered By: Willie Dhillon on 07-12-2023 Nitrite Ql (U) Negative Negative [facility] No Panel InformationOrdered By: Willie Dhillon on 07-12-2023 26.2 pg 27.0-32.0 [facility] 13.3 % 11.6-14.6 [facility] 39.8 fl 35.1-43.9 [facility] 0.200 % 0.0-0.9 [facility] 0 % 0-5 [facility] 68 mL/min >60 [facility] 82 mL/min >60 [facility] 75.55 ml/min [facility] 12.9 RATIO 10-20 [facility] 5.4 g/dL 2.2-4.2 [facility] 30 U/L 13-75 [facility] 112 U/L 45-117 [facility] 12 U/L 13-56 [facility] 28.0 mmol/L 21.0-32.0 [facility] Negative < 50 ng/mL [facility] Positive < 500 ng/mL [facility] Platelets bldOrdered By: Heath Dhillon on 07-12-2023 Platelets (Bld) [#/Vol] 459 10*3/uL 150-450 [facility] Protein Test strip Ql (U)Ord ered By: Willie Dhillon on 07-12-2023 Protein Ql (U) 30 mg/dl Negative [facility] Serum or plasma albumin hussein urement (mass/volume)Ordered By: Willie Dhillon on 07-12-2023 Albumin [Mass/Vol] 3.6 g/dL 3.2-5.0 [facility] Serum or plasma albumin/glob ulin mass ratioOrdered By: Willie Dhillon on 07-12-2023 Albumin/Globulin [Mass ratio] 0.7 {ratio} 0.9-2.4 [facility] Serum or plasma calcium hussein urement (mass/volume)Ordered By: Willie Dhillon on 07-12-2023 Calcium [Mass/Vol] 9.3 mg/dL 8.5-10.1 [facility] Serum or plasma creatinine m easurement (mass/volume)Ordered By: Willie Dhillon on 07-12-2023 Creatinine [Mass/Vol] 1.01 mg/dL 0.55-1.02 [facility] Serum or plasma urea nitroge n measurement (mass/volume)Ordered By: Willie Dhillon on 07-12-2023 Urea nitrogen [Mass/Vol] 13 mg/dL 7-18 [facility] Squamous epithelial cells de tection in urine sediment by light microscopyOrdered By: Willie Dhillon on 07-12-2023 Epithelial cells.squamous LM Ql (Urine sed) 10-25 SEEN /hpf 5-10 [facility] Thin prep Papanicolaou smear with manual screeningOrdered By: Willie Dhillon on 07-12-2023 Thin prep Papanicolaou smear with manual screening 21 U/L 15-37 [facility] Thin prep Papanicolaou smear with manual screening 8 5-15 [facility] Urine blood detectionOrdered By: Willie Dhillon on 07-12-2023 RBC Ql (U) 10 /ul Negative [facility] RBC Ql (U) 0-5 SEEN /hpf 0-5 [facility] Urine clarityOrdered By: Heath Dhillon on 07-12-2023 Clarity (U) Cloudy Clear [facility] Urine color determinationOrd ered By: Willie Dhillon on 07-12-2023 Color (U) Yellow Yellow [facility] Urine glucose detectionOrder ed By: Willie Dhillon on 07-12-2023 Glucose Ql (U) Normal mg/dl Normal [facility] Urine leukocyte esterase det ection by dipstickOrdered By: Willie Dhillon on 07-12-2023 Leukocyte esterase Test strip Ql (U) 100 /ul Negative [facility] Urine pHOrdered By: Willie mo on 07-12-2023 pH (U) 7.0 [pH] 5.0 - 8.0 [facility] Urine phencyclidine (PCP) de tectionOrdered By: Willie Dhillon on 07-12-2023 Phencyclidine Ql (U) Negative < 25 ng/mL [facility] Urine sediment bacteria coun t by microscopy (number/high power field)Ordered By: Willie Dhillon on 07-12-2023 Bacteria LM.HPF (Urine sed) [#/Area] 2 /[HPF] None Seen [facility] Urine specific gravity measu rementOrdered By: Willie Dhillon on 07-12-2023 Specific gravity (U) [Rel density] 1.010 1.002-1.030 [facility] Urobilinogen Auto test strip Ql (U)Ordered By: Willie Dhillon on 07-12-2023 Urobilinogen Ql (U) 1 mg/dl Normal [facility] Absolute lymphocyte countOrd ered By: Alex Christiansen on 06-30-2023 Lymphocytes Auto (Unsp spec) [#/Vol] 2.97 10*3/uL 0.83-4.51 [facility] Basophil percentageOrdered B y: Alex Christiansen on 06-30-2023 Basophil percentage 201 mg/dL 74-106 [facility] Basophil percentage 8.0 g/dL 6.4-8.2 [facility] Basophil percentage 0.50 mg/dL 0.20-1.00 [facility] Basophil percentage 137 mmol/L 136-145 [facility] Basophil percentage 3.3 mmol/L 3.5-5.1 [facility] Basophil percentage 103 mmol/L 98-107 [facility] Basophils (Bld) [#/Vol] 9.9 10*3/uL 4.4-11.0 [facility] Basophils (Bld) [#/Vol] 6.2 10*3/uL 2.0-7.7 [facility] Basophils/100 WBC (Bld) 62.9 % 47-70 [facility] Basophils/100 WBC (Bld) 0.1 % 0-5 [facility] Basophils/100 WBC (Bld) 0.5 % 0-1 [facility] Blood erythrocytes count (nu mber/volume)Ordered By: Alex Christiansen on 06-30-2023 RBC (Bld) [#/Vol] 4.56 10*6/uL 4.2-5.4 [facility] Blood hemoglobin measurement (mass/volume)Ordered By: Alex Christiansen on 06-30-2023 Hemoglobin (Bld) [Mass/Vol] 12.2 g/dL 12.0-15.0 [facility] Blood lymphocytes/100 leukoc ytesOrdered By: Alex Christiansen on 06-30-2023 Lymphocytes/100 WBC (Bld) 30.0 % 19-41 [facility] Blood monocytes/100 leukocyt esOrdered By: Alex Christiansen on 06-30-2023 Monocytes/100 WBC (Bld) 6.1 % 0-10 [facility] Blood platelet mean volumeOr dered By: Alex Christiansen on 06-30-2023 Platelet mean volume (Bld) [Entitic vol] 9.0 fL 6.2-12.0 [facility] Determination of erythrocyte mean corpuscular volume (MCV)Ordered By: Alex Christiansen on 06-30-2023 MCV (RBC) [Entitic vol] 84.0 fL 81-99 [facility] Hematocrit Auto (Bld) [Volum e fraction]Ordered By: Alex Christiansen on 06-30-2023 Hematocrit (Bld) [Volume fraction] 38.3 % 37-47 [facility] MCHC Auto (RBC) [Mass/Vol]Or dered By: Alex Christiansen on 06-30-2023 MCHC (RBC) [Mass/Vol] 31.9 g/dL 32-36 [facility] No Panel InformationOrdered By: Alex Christiansen on 06-30-2023 26.8 pg 27.0-32.0 [facility] 13.6 % 11.6-14.6 [facility] 41.9 fl 35.1-43.9 [facility] 0.400 % 0.0-0.9 [facility] 0 % 0-5 [facility] 81 mL/min >60 [facility] 98 mL/min >60 [facility] 88.73 ml/min [facility] 10.4 RATIO 10-20 [facility] 4.6 g/dL 2.2-4.2 [facility] 22 U/L 13-75 [facility] 114 U/L 45-117 [facility] 11 U/L 13-56 [facility] 26.0 mmol/L 21.0-32.0 [facility] Platelets bldOrdered By: Milton Christiansen on 06-30-2023 Platelets (Bld) [#/Vol] 437 10*3/uL 150-450 [facility] Serum or plasma albumin hussein urement (mass/volume)Ordered By: Alex Christiansen on 06-30-2023 Albumin [Mass/Vol] 3.4 g/dL 3.2-5.0 [facility] Serum or plasma albumin/glob ulin mass ratioOrdered By: Alex Christiansen on 06-30-2023 Albumin/Globulin [Mass ratio] 0.7 {ratio} 0.9-2.4 [facility] Serum or plasma calcium hussein urement (mass/volume)Ordered By: Alex Christiansen on 06-30-2023 Calcium [Mass/Vol] 9.4 mg/dL 8.5-10.1 [facility] Serum or plasma creatinine m easurement (mass/volume)Ordered By: Alex Christiansen on 06-30-2023 Creatinine [Mass/Vol] 0.86 mg/dL 0.55-1.02 [facility] Serum or plasma urea nitroge n measurement (mass/volume)Ordered By: Alex Christiansen on 06-30-2023 Urea nitrogen [Mass/Vol] 9 mg/dL 7-18 [facility] Thin prep Papanicolaou smear with manual screeningOrdered By: Alex Christiansen on 06-30-2023 Thin prep Papanicolaou smear with manual screening 7 U/L 15-37 [facility] Thin prep Papanicolaou smear with manual screening 8 5-15 [facility] Absolute lymphocyte countOrd ered By: Drew Hinson on 06-28-2023 Lymphocytes Auto (Unsp spec) [#/Vol] 2.31 10*3/uL 0.83-4.51 [facility] Basophil percentageOrdered B y: Drew Hinson on 06-28-2023 Basophil percentage 0-5 SEEN /hpf 0-5 [facility] Basophil percentage 221 mg/dL 74-106 [facility] Basophil percentage 9.3 g/dL 6.4-8.2 [facility] Basophil percentage 0.60 mg/dL 0.20-1.00 [facility] Basophil percentage 136 mmol/L 136-145 [facility] Basophil percentage 3.2 mmol/L 3.5-5.1 [facility] Basophil percentage 102 mmol/L 98-107 [facility] Basophils (Bld) [#/Vol] 9.2 10*3/uL 4.4-11.0 [facility] Basophils (Bld) [#/Vol] 6.4 10*3/uL 2.0-7.7 [facility] Basophils/100 WBC (Bld) 0.5 % 0-1 [facility] Basophils/100 WBC (Bld) 69.1 % 47-70 [facility] Basophils/100 WBC (Bld) 0.1 % 0-5 [facility] Bilirubin [Mass/Vol] 0.60 mg/dL 0.20-1.00 [facility] Comment on above: For patients on eltr ombopag therapy, use of [employer] [place] TBIL is not recommended. Chloride [Moles/Vol] 102 mmol/L 98-107 [facility] Eosinophils/100 WBC (Bld) 0.1 % 0-5 [facility] Glucose [Mass/Vol] 221 mg/dL 74-106 [facility] Comment on above: Glucose result great er than or equal to 200 mg/dLsuggests DIABETES MELLITUS per A.D.A. criteria. Neutrophils (Bld) [#/Vol] 6.4 10*3/uL 2.0-7.7 [facility] Neutrophils/100 WBC (Bld) 69.1 % 47-70 [facility] Potassium [Moles/Vol] 3.2 mmol/L 3.5-5.1 [facility] Protein [Mass/Vol] 9.3 g/dL 6.4-8.2 [facility] Sodium [Moles/Vol] 136 mmol/L 136-145 [facility] WBC (Bld) [#/Vol] 9.2 10*3/uL 4.4-11.0 [facility] Bilirubin Test strip Ql (U)O rdered By: Drew Hinson on 06-28-2023 Bilirubin Ql (U) 1 mg/dL Negative [facility] Comment on above: COLOR OF URINE MAY A FFECT DIPSTICK RESULTS. Blood erythrocytes count (nu mber/volume)Ordered By: Drew Hinson on 06-28-2023 RBC (Bld) [#/Vol] 4.85 10*6/uL 4.2-5.4 [facility] Blood hemoglobin measurement (mass/volume)Ordered By: Drew Hinson on 06-28-2023 Hemoglobin (Bld) [Mass/Vol] 13.0 g/dL 12.0-15.0 [facility] Blood lymphocytes/100 leukoc ytesOrdered By: Drew Hinson on 06-28-2023 Lymphocytes/100 WBC (Bld) 25.1 % 19-41 [facility] Blood monocytes/100 leukocyt esOrdered By: Drew Hinson on 06-28-2023 Monocytes/100 WBC (Bld) 4.8 % 0-10 [facility] Blood platelet mean volumeOr dered By: Drew Hinson on 06-28-2023 Platelet mean volume (Bld) [Entitic vol] 8.9 fL 6.2-12.0 [facility] Determination of erythrocyte mean corpuscular volume (MCV)Ordered By: Drew Hinson on 06-28-2023 MCV (RBC) [Entitic vol] 83.7 fL 81-99 [facility] Hematocrit Auto (Bld) [Volum e fraction]Ordered By: Drew Hinson on 06-28-2023 Hematocrit (Bld) [Volume fraction] 40.6 % 37-47 [facility] Ketones Test strip Ql (U)Ord ered By: Drew Hinson on 06-28-2023 Ketones Ql (U) 50 mg/dl Negative [facility] - Chemistry and C hemistry - challengeOrdered By: Drew Hinson on 06-28-2023 ALP [Catalytic activity/Vol] 128 U/L 45-117 [facility] ALT [Catalytic activity/Vol] 13 U/L 13-56 [facility] CO2 [Moles/Vol] 25.0 mmol/L 21.0-32.0 [facility] Globulin (S) [Mass/Vol] 5.4 g/dL 2.2-4.2 [facility] Lipase [Catalytic activity/Vol] 28 U/L 13-75 [facility] Comment on above: Please note:LIPASE r evised reference range effective 22. New Lipase methodology. Expected to produce lower values than the previous assay method. NEW Reference Range: 13 - 75 U/L Urea nitrogen/Creatinine [Mass ratio] 11.7 mg/mg 10-20 [facility] - Hematology and Cell countsOrdered By: Drew Hinson on 06-28-2023 Erythrocyte distribution width (RBC) [Entitic vol] 41.7 fL 35.1-43.9 [facility] Erythrocyte distribution width (RBC) [Ratio] 13.6 % 11.6-14.6 [facility] Immature granulocytes/100 WBC (Bld) 0.400 % 0.0-0.9 [facility] Comment on above: IG% - Immature Granu locytes (promyelocytes, myelocytes and metamyelocytes) > 1% indicates that a LEFT SHIFT is Present. MCH (RBC) [Entitic mass] 26.8 pg 27.0-32.0 [facility] Nucleated RBC/100 WBC (Bld) [Ratio] 0 % 0-5 [facility] MCHC Auto (RBC) [Mass/Vol]Or dered By: Drew Hinson on 06-28-2023 MCHC (RBC) [Mass/Vol] 32.0 g/dL 32-36 [facility] Mucus LM Ql (Urine sed)Order ed By: Drew Hinson on 06-28-2023 Mucus Ql (Urine sed) 1+ /hpf [facility] Nitrite Test strip Ql (U)Ord ered By: Drew Hinson on 06-28-2023 Nitrite Ql (U) Negative Negative [facility] No Panel InformationOrdered By: Drew Hinson on 06-28-2023 Estimated Creatinine Clearance Calc 81.18 ml/min [facility] Estimated GFR (MDRD) Amer 89 mL/min >60 [facility] Comment on above: GFR Calc Estimated GFR (MDRD) Non-Af Amer 74 mL/min >60 [facility] Comment on above: Non- GFR Calc 26.8 pg 27.0-32.0 [facility] 13.6 % 11.6-14.6 [facility] 41.7 fl 35.1-43.9 [facility] 0.400 % 0.0-0.9 [facility] 0 % 0-5 [facility] 74 mL/min >60 [facility] 89 mL/min >60 [facility] 81.18 ml/min [facility] 11.7 RATIO 10-20 [facility] 5.4 g/dL 2.2-4.2 [facility] 28 U/L 13-75 [facility] 128 U/L 45-117 [facility] 13 U/L 13-56 [facility] 25.0 mmol/L 21.0-32.0 [facility] Platelets bldOrdered By: Dwight Hinson on 06-28-2023 Platelets (Bld) [#/Vol] 491 10*3/uL 150-450 [facility] Protein Test strip Ql (U)Ord ered By: Drew Hinson on 06-28-2023 Protein Ql (U) 30 mg/dl Negative [facility] Serum or plasma albumin hussein urement (mass/volume)Ordered By: Drew Hinson on 06-28-2023 Albumin [Mass/Vol] 3.9 g/dL 3.2-5.0 [facility] Serum or plasma albumin/glob ulin mass ratioOrdered By: Drew Hinson on 06-28-2023 Albumin/Globulin [Mass ratio] 0.7 {ratio} 0.9-2.4 [facility] Serum or plasma calcium hussein urement (mass/volume)Ordered By: Drew Hinson on 06-28-2023 Calcium [Mass/Vol] 9.6 mg/dL 8.5-10.1 [facility] Serum or plasma creatinine m easurement (mass/volume)Ordered By: Drew Hinson on 06-28-2023 Creatinine [Mass/Vol] 0.94 mg/dL 0.55-1.02 [facility] Comment on above: The validity of the calculated GFR & GFRAA in patients over 70 years has not been determined. Clinical correlation is essential. Serum or plasma urea nitroge n measurement (mass/volume)Ordered By: Drew Hinson on 06-28-2023 Urea nitrogen [Mass/Vol] 11 mg/dL 7-18 [facility] Squamous epithelial cells de tection in urine sediment by light microscopyOrdered By: Drew Hinson on 06-28-2023 Epithelial cells.squamous LM Ql (Urine sed) 5-10 SEEN /hpf 5-10 [facility] Thin prep Papanicolaou smear with manual screeningOrdered By: Drew Hinson on 06-28-2023 Thin prep Papanicolaou smear with manual screening 11 U/L 15-37 [facility] Thin prep Papanicolaou smear with manual screening 9 5-15 [facility] Urine blood detectionOrdered By: Drew Hinson on 06-28-2023 RBC Ql (U) 25 /ul Negative [facility] RBC Ql (U) 0-5 SEEN /hpf 0-5 [facility] Urine clarityOrdered By: Dwight Hinson on 06-28-2023 Clarity (U) Cloudy Clear [facility] Urine color determinationOrd ered By: Drew Hinson on 06-28-2023 Color (U) Yellow Yellow [facility] Urine glucose detectionOrder ed By: Drew Hinson on 06-28-2023 Glucose Ql (U) 50 mg/dl Normal [facility] Urine leukocyte esterase det ection by dipstickOrdered By: Drew Hinson on 06-28-2023 Leukocyte esterase Test strip Ql (U) 25 /ul Negative [facility] Urine pHOrdered By: Drew castellanos on 06-28-2023 pH (U) 6.0 [pH] 5.0 - 8.0 [facility] Urine sediment bacteria coun t by microscopy (number/high power field)Ordered By: Drew Sravan on 06-28-2023 Bacteria LM.HPF (Urine sed) [#/Area] 2 /[HPF] None Seen [facility] Urine specific gravity measu rementOrdered By: Drew Sravan on 06-28-2023 Specific gravity (U) [Rel density] 1.020 1.002-1.030 [facility] Urobilinogen Auto test strip Ql (U)Ordered By: Drew Hinson on 06-28-2023 Urobilinogen Ql (U) 1 mg/dl Normal [facility] Absolute lymphocyte countOrd ered By: Taiwo Chen on 06-26-2023 Lymphocytes Auto (Unsp spec) [#/Vol] 2.63 10*3/uL 0.83-4.51 [facility] Basophil percentageOrdered B y: Taiwo Chen on 06-26-2023 Basophil percentage 228 mg/dL 74-106 [facility] Basophil percentage 8.4 g/dL 6.4-8.2 [facility] Basophil percentage 0.30 mg/dL 0.20-1.00 [facility] Basophil percentage 136 mmol/L 136-145 [facility] Basophil percentage 3.8 mmol/L 3.5-5.1 [facility] Basophil percentage 102 mmol/L 98-107 [facility] Basophils (Bld) [#/Vol] 8.6 10*3/uL 4.4-11.0 [facility] Basophils (Bld) [#/Vol] 5.5 10*3/uL 2.0-7.7 [facility] Basophils/100 WBC (Bld) 0.6 % 0-1 [facility] Basophils/100 WBC (Bld) 63.6 % 47-70 [facility] Basophils/100 WBC (Bld) 0.2 % 0-5 [facility] Bilirubin [Mass/Vol] 0.30 mg/dL 0.20-1.00 [facility] Comment on above: For patients on eltr ombopag therapy, use of [employer] TBIL is not recommended. Chloride [Moles/Vol] 102 mmol/L 98-107 [facility] Eosinophils/100 WBC (Bld) 0.2 % 0-5 [facility] Glucose [Mass/Vol] 228 mg/dL 74-106 [facility] Comment on above: Glucose result great er than or equal to 200 mg/dLsuggests DIABETES MELLITUS per A.D.A. criteria. Neutrophils (Bld) [#/Vol] 5.5 10*3/uL 2.0-7.7 [facility] Neutrophils/100 WBC (Bld) 63.6 % 47-70 [facility] Potassium [Moles/Vol] 3.8 mmol/L 3.5-5.1 [facility] Protein [Mass/Vol] 8.4 g/dL 6.4-8.2 [facility] Sodium [Moles/Vol] 136 mmol/L 136-145 [facility] WBC (Bld) [#/Vol] 8.6 10*3/uL 4.4-11.0 [facility] Blood erythrocytes count (nu mber/volume)Ordered By: Taiwo Chen on 06-26-2023 RBC (Bld) [#/Vol] 4.31 10*6/uL 4.2-5.4 [facility] Blood hemoglobin measurement (mass/volume)Ordered By: Taiwo Chen on 06-26-2023 Hemoglobin (Bld) [Mass/Vol] 11.6 g/dL 12.0-15.0 [facility] Blood lymphocytes/100 leukoc ytesOrdered By: Taiwo Chen on 06-26-2023 Lymphocytes/100 WBC (Bld) 30.6 % 19-41 [facility] Blood monocytes/100 leukocyt esOrdered By: Taiwo Chen on 06-26-2023 Monocytes/100 WBC (Bld) 4.3 % 0-10 [facility] Blood platelet mean volumeOr dered By: Taiwo Chen on 06-26-2023 Platelet mean volume (Bld) [Entitic vol] 9.3 fL 6.2-12.0 [facility] Determination of erythrocyte mean corpuscular volume (MCV)Ordered By: Taiwo Chen on 06-26-2023 MCV (RBC) [Entitic vol] 84.7 fL 81-99 [facility] Hematocrit Auto (Bld) [Volum e fraction]Ordered By: Taiwo Chen on 06-26-2023 Hematocrit (Bld) [Volume fraction] 36.5 % 37-47 [facility] - Chemistry and C hemistry - challengeOrdered By: Taiwo Chen on 06-26-2023 ALP [Catalytic activity/Vol] 135 U/L 45-117 [facility] ALT [Catalytic activity/Vol] 15 U/L 13-56 [facility] CO2 [Moles/Vol] 26.0 mmol/L 21.0-32.0 [facility] Globulin (S) [Mass/Vol] 5.0 g/dL 2.2-4.2 [facility] Urea nitrogen/Creatinine [Mass ratio] 11.4 mg/mg 10-20 [facility] - Hematology and Cell countsOrdered By: Taiwo Chen on 06-26-2023 Erythrocyte distribution width (RBC) [Entitic vol] 42.7 fL 35.1-43.9 [facility] Erythrocyte distribution width (RBC) [Ratio] 13.7 % 11.6-14.6 [facility] Immature granulocytes/100 WBC (Bld) 0.700 % 0.0-0.9 [facility] Comment on above: IG% - Immature Granu locytes (promyelocytes, myelocytes and metamyelocytes) > 1% indicates that a LEFT SHIFT is Present. MCH (RBC) [Entitic mass] 26.9 pg 27.0-32.0 [facility] Nucleated RBC/100 WBC (Bld) [Ratio] 0 % 0-5 [facility] MCHC Auto (RBC) [Mass/Vol]Or dered By: Taiwo Chen on 06-26-2023 MCHC (RBC) [Mass/Vol] 31.8 g/dL 32-36 [facility] No Panel InformationOrdered By: Taiwo Chen on 06-26-2023 Estimated Creatinine Clearance Calc 86.71 ml/min [facility] Estimated GFR (MDRD) Amer 97 mL/min >60 [facility] Comment on above: GFR Calc Estimated GFR (MDRD) Non-Af Amer 80 mL/min >60 [facility] Comment on above: Non- GFR Calc 26.9 pg 27.0-32.0 [facility] 13.7 % 11.6-14.6 [facility] 42.7 fl 35.1-43.9 [facility] 0.700 % 0.0-0.9 [facility] 0 % 0-5 [facility] 80 mL/min >60 [facility] 97 mL/min >60 [facility] 86.71 ml/min [facility] 11.4 RATIO 10-20 [facility] 5.0 g/dL 2.2-4.2 [facility] 135 U/L 45-117 [facility] 15 U/L 13-56 [facility] 26.0 mmol/L 21.0-32.0 [facility] Platelets bldOrdered By: Liss Chen on 06-26-2023 Platelets (Bld) [#/Vol] 464 10*3/uL 150-450 [facility] Serum or plasma albumin hussein urement (mass/volume)Ordered By: Taiwo Chen on 06-26-2023 Albumin [Mass/Vol] 3.4 g/dL 3.2-5.0 [facility] Serum or plasma albumin/glob ulin mass ratioOrdered By: Taiwo Chen on 06-26-2023 Albumin/Globulin [Mass ratio] 0.7 {ratio} 0.9-2.4 [facility] Serum or plasma calcium hussein urement (mass/volume)Ordered By: Taiwo Chen on 06-26-2023 Calcium [Mass/Vol] 9.5 mg/dL 8.5-10.1 [facility] Serum or plasma creatinine m easurement (mass/volume)Ordered By: Taiwo Chen on 06-26-2023 Creatinine [Mass/Vol] 0.88 mg/dL 0.55-1.02 [facility] Comment on above: The validity of the calculated GFR & GFRAA in patients over 70 years has not been determined. Clinical correlation is essential. Serum or plasma urea nitroge n measurement (mass/volume)Ordered By: Taiwo Chen on 06-26-2023 Urea nitrogen [Mass/Vol] 10 mg/dL 7-18 [facility] Thin prep Papanicolaou smear with manual screeningOrdered By: Taiwo Chen on 06-26-2023 Thin prep Papanicolaou smear with manual screening 8 U/L 15-37 [facility] Thin prep Papanicolaou smear with manual screening 8 5-15 [facility] Absolute lymphocyte countOrd ered By: Tesfaye Mitchell on 06-25-2023 Lymphocytes Auto (Unsp spec) [#/Vol] 2.74 10*3/uL 0.83-4.51 [facility] Basophil percentageOrdered B y: Tesfaye Mitchell on 06-25-2023 Basophil percentage 259 mg/dL 74-106 [facility] Basophil percentage 8.7 g/dL 6.4-8.2 [facility] Basophil percentage 0.40 mg/dL 0.20-1.00 [facility] Basophil percentage 137 mmol/L 136-145 [facility] Basophil percentage 4.0 mmol/L 3.5-5.1 [facility] Basophil percentage 103 mmol/L 98-107 [facility] Basophils (Bld) [#/Vol] 11.7 10*3/uL 4.4-11.0 [facility] Basophils (Bld) [#/Vol] 8.5 10*3/uL 2.0-7.7 [facility] Basophils/100 WBC (Bld) 0.4 % 0-1 [facility] Basophils/100 WBC (Bld) 72.6 % 47-70 [facility] Basophils/100 WBC (Bld) 0.0 % 0-5 [facility] Bilirubin [Mass/Vol] 0.40 mg/dL 0.20-1.00 [facility] Comment on above: For patients on eltr ombopag therapy, use of Dimension [place] TBIL is not recommended. Chloride [Moles/Vol] 103 mmol/L 98-107 [facility] Eosinophils/100 WBC (Bld) 0.0 % 0-5 [facility] Glucose [Mass/Vol] 259 mg/dL 74-106 [facility] Comment on above: Glucose result great er than or equal to 200 mg/dLsuggests DIABETES MELLITUS per A.D.A. criteria. Neutrophils (Bld) [#/Vol] 8.5 10*3/uL 2.0-7.7 [facility] Neutrophils/100 WBC (Bld) 72.6 % 47-70 [facility] Potassium [Moles/Vol] 4.0 mmol/L 3.5-5.1 [facility] Protein [Mass/Vol] 8.7 g/dL 6.4-8.2 [facility] Sodium [Moles/Vol] 137 mmol/L 136-145 [facility] WBC (Bld) [#/Vol] 11.7 10*3/uL 4.4-11.0 [facility] Basophil percentage 0-5 SEEN /hpf 0-5 [facility] Bilirubin Test strip Ql (U)O rdered By: Tesfaye Mitchell on 06-25-2023 Bilirubin Ql (U) Negative Negative [facility] Blood erythrocytes count (nu mber/volume)Ordered By: Tesfaye Mitchell on 06-25-2023 RBC (Bld) [#/Vol] 4.53 10*6/uL 4.2-5.4 [facility] Blood hemoglobin measurement (mass/volume)Ordered By: Tesfaye Mitchell on 06-25-2023 Hemoglobin (Bld) [Mass/Vol] 12.0 g/dL 12.0-15.0 [facility] Blood lymphocytes/100 leukoc ytesOrdered By: Tesfaye Mitchell on 06-25-2023 Lymphocytes/100 WBC (Bld) 23.5 % 19-41 [facility] Blood monocytes/100 leukocyt esOrdered By: Tesfaye Mitchell on 06-25-2023 Monocytes/100 WBC (Bld) 2.9 % 0-10 [facility] Blood platelet mean volumeOr dered By: Tesfaye Mitchell on 06-25-2023 Platelet mean volume (Bld) [Entitic vol] 9.1 fL 6.2-12.0 [facility] Determination of erythrocyte mean corpuscular volume (MCV)Ordered By: Tesfaye Mitchell on 06-25-2023 MCV (RBC) [Entitic vol] 84.3 fL 81-99 [facility] Hematocrit Auto (Bld) [Volum e fraction]Ordered By: Tesfaye Mitchell on 06-25-2023 Hematocrit (Bld) [Volume fraction] 38.2 % 37-47 [facility] Ketones Test strip Ql (U)Ord ered By: Tesfaye Mitchell on 06-25-2023 Ketones Ql (U) 15 mg/dl Negative [facility] Laboratory - Chemistry and C hemistry - challengeOrdered By: Tesfaye Mitchell on 06-25-2023 ALP [Catalytic activity/Vol] 156 U/L 45-117 [facility] ALT [Catalytic activity/Vol] 15 U/L 13-56 [facility] CO2 [Moles/Vol] 24.0 mmol/L 21.0-32.0 [facility] Globulin (S) [Mass/Vol] 5.4 g/dL 2.2-4.2 [facility] Lipase [Catalytic activity/Vol] 32 U/L 13-75 [facility] Comment on above: Please note:LIPASE r evised reference range effective 22. New Lipase methodology. Expected to produce lower values than the previous assay method. NEW Reference Range: 13 - 75 U/L Urea nitrogen/Creatinine [Mass ratio] 15.7 mg/mg 10-20 [facility] - Drug toxicology Ordered By: Tesfaye Mitchell on 06-25-2023 Amphetamines Ql (U) Negative <1000 ng/mL [facility] Benzodiazepines Ql (U) Negative < 200 ng/mL [facility] Cannabinoids Screen Ql (U) Negative < 50 ng/mL [facility] Cocaine Ql (U) Negative < 300 ng/mL [facility] Opiates Ql (U) Negative < 300 ng/mL [facility] - Hematology and Cell countsOrdered By: Tesfaye Mitchell on 06-25-2023 Erythrocyte distribution width (RBC) [Entitic vol] 42.4 fL 35.1-43.9 [facility] Erythrocyte distribution width (RBC) [Ratio] 13.7 % 11.6-14.6 [facility] Immature granulocytes/100 WBC (Bld) 0.600 % 0.0-0.9 [facility] Comment on above: IG% - Immature Granu locytes (promyelocytes, myelocytes and metamyelocytes) > 1% indicates that a LEFT SHIFT is Present. MCH (RBC) [Entitic mass] 26.5 pg 27.0-32.0 [facility] Nucleated RBC/100 WBC (Bld) [Ratio] 0 % 0-5 [facility] MCHC Auto (RBC) [Mass/Vol]Or dered By: Tesfaye Mitchell on 06-25-2023 MCHC (RBC) [Mass/Vol] 31.4 g/dL 32-36 [facility] Mucus LM Ql (Urine sed)Order ed By: Tesfaye Mitchell on 06-25-2023 Mucus Ql (Urine sed) 0 SEEN /hpf [facility] Nitrite Test strip Ql (U)Ord ered By: Tesfaye Mitchell on 06-25-2023 Nitrite Ql (U) Negative Negative [facility] No Panel InformationOrdered By: Tesfaye Mitchell on 06-25-2023 Estimated Creatinine Clearance Calc 91.94 ml/min [facility] Estimated GFR (MDRD) Amer 103 mL/min >60 [facility] Comment on above: GFR Calc Estimated GFR (MDRD) Non-Af Amer 85 mL/min >60 [facility] Comment on above: Non- GFR Calc 26.5 pg 27.0-32.0 [facility] 13.7 % 11.6-14.6 [facility] 42.4 fl 35.1-43.9 [facility] 0.600 % 0.0-0.9 [facility] 0 % 0-5 [facility] 85 mL/min >60 [facility] 103 mL/min >60 [facility] 91.94 ml/min [facility] 15.7 RATIO 10-20 [facility] 5.4 g/dL 2.2-4.2 [facility] 32 U/L 13-75 [facility] 156 U/L 45-117 [facility] 15 U/L 13-56 [facility] 24.0 mmol/L 21.0-32.0 [facility] MDMA (Ecstasy) Screen Positive < 500 ng/mL [facility] [place] Urine Barbiturates Screen Negative < 200 ng/mL [facility] Urine Drug Screen Comment [facility] Comment on above: CONFIRMATORY TESTING FOR [...] Methadone Screen Negative < 300 ng/mL [facility] Negative < 50 ng/mL [facility] Positive < 500 ng/mL [facility] Platelets bldOrdered By: Mauro Mitchell on 06-25-2023 Platelets (Bld) [#/Vol] 497 10*3/uL 150-450 [facility] Protein Test strip Ql (U)Ord ered By: Tesfaye Mitchell on 06-25-2023 Protein Ql (U) 30 mg/dl Negative [facility] Serum or plasma albumin hussein urement (mass/volume)Ordered By: Tesfaye Mitchell on 06-25-2023 Albumin [Mass/Vol] 3.3 g/dL 3.2-5.0 [facility] Serum or plasma albumin/glob ulin mass ratioOrdered By: Tesfaye Mitchell on 06-25-2023 Albumin/Globulin [Mass ratio] 0.6 {ratio} 0.9-2.4 [facility] Serum or plasma calcium hussein urement (mass/volume)Ordered By: Tesfaye Mitchell on 06-25-2023 Calcium [Mass/Vol] 9.6 mg/dL 8.5-10.1 [facility] Serum or plasma creatinine m easurement (mass/volume)Ordered By: Tesfaye Mitchell on 06-25-2023 Creatinine [Mass/Vol] 0.83 mg/dL 0.55-1.02 [facility] Comment on above: The validity of the calculated GFR & GFRAA in patients over 70 years has not been determined. Clinical correlation is essential. Serum or plasma urea nitroge n measurement (mass/volume)Ordered By: Tesfaye Mitchell on 06-25-2023 Urea nitrogen [Mass/Vol] 13 mg/dL 7-18 [facility] Squamous epithelial cells de tection in urine sediment by light microscopyOrdered By: Tesfaye Mitchell on 06-25-2023 Epithelial cells.squamous LM Ql (Urine sed) 5-10 SEEN /hpf 5-10 [facility] Thin prep Papanicolaou smear with manual screeningOrdered By: Tesfaye Mitchell on 06-25-2023 Thin prep Papanicolaou smear with manual screening 14 U/L 15-37 [facility] Thin prep Papanicolaou smear with manual screening 10 5-15 [facility] Urine blood detectionOrdered By: Tesfaye Mitchell on 06-25-2023 RBC Ql (U) 250 /ul Negative [facility] RBC Ql (U) > 100 SEEN /hpf 0-5 [facility] Urine clarityOrdered By: Mauro Mitchell on 06-25-2023 Clarity (U) Sl. Cloudy Clear [facility] Urine color determinationOrd ered By: Tesfaye Mitchell on 06-25-2023 Color (U) Yellow Yellow [facility] Urine glucose detectionOrder ed By: Tesfaye Mitchell on 06-25-2023 Glucose Ql (U) 250 mg/dl Normal [facility] Urine leukocyte esterase det ection by dipstickOrdered By: Tesfaye Mitchell on 06-25-2023 Leukocyte esterase Test strip Ql (U) 25 /ul Negative [facility] Urine pHOrdered By: Tesfaye figueroa on 06-25-2023 pH (U) 7.0 [pH] 5.0 - 8.0 [facility] Urine phencyclidine (PCP) de tectionOrdered By: Tesfaye Mitchell on 06-25-2023 Phencyclidine Ql (U) Negative < 25 ng/mL [facility] Urine sediment bacteria coun t by microscopy (number/high power field)Ordered By: Tesfaye Mitchell on 06-25-2023 Bacteria LM.HPF (Urine sed) [#/Area] 0 /[HPF] None Seen [facility] Urine specific gravity measu rementOrdered By: Tesfaye Mitchell on 06-25-2023 Specific gravity (U) [Rel density] 1.010 1.002-1.030 [facility] Urobilinogen Auto test strip Ql (U)Ordered By: Tesfaye Mitchell on 06-25-2023 Urobilinogen Ql (U) Normal mg/dl Normal [facility] Anaerobic cultureOrdered By: Abdirizak Forrest on 05-18-2023 Bacteria identified Anaer cx Nom (Unsp spec) No anaerobic bacteria isolated. [facility] Bacteria identified Cx Nom ( Wound)Ordered By: Abdirizak Forrest on 05-18-2023 Wound Culture Meth. resistant Stap h. aureus [facility] Routine wound culture Meth. resistant St aph. aureus [facility] Fungus cultureOrdered By: Neva Forrest on 05-18-2023 Fungus identified Cx Nom (Unsp spec) [facility] Gram stain for investigation of transfusion reactionOrdered By: Abdirizak Forrest on 05-18-2023 Microscopic observation Gram stain Nom (Unsp spec) [facility] Glucose Glucometer (BldC) [M ass/Vol]Ordered By: Rickey Gifford on 05-09-2023 Glucose [Mass/Vol] 157 mg/dL 74-106 [facility] Comment on above: MANAGEMENT OF PATIEN T CARE PER NURSING PROTOCOL Basophil percentageOrdered B y: Rickey Gifford on 05-07-2023 Basophil percentage 161 mg/dL 74-106 [facility] Basophil percentage 138 mmol/L 136-145 [facility] Basophil percentage 4.0 mmol/L 3.5-5.1 [facility] Basophil percentage 108 mmol/L 98-107 [facility] Chloride [Moles/Vol] 108 mmol/L 98-107 [facility] Glucose [Mass/Vol] 161 mg/dL 74-106 [facility] Comment on above: Fasting Glucose resu lt greater than or equal to 126 mg/dL suggests DIABETES MELLITUS per A.D.A. criteria. Potassium [Moles/Vol] 4.0 mmol/L 3.5-5.1 [facility] Sodium [Moles/Vol] 138 mmol/L 136-145 [facility] Laboratory - Chemistry and C hemistry - challengeOrdered By: Rickey Gifford on 05-07-2023 CO2 [Moles/Vol] 26.0 mmol/L 21.0-32.0 [facility] Urea nitrogen/Creatinine [Mass ratio] 17.1 mg/mg 10- [facility] No Panel InformationOrdered By: Rickey Gifford on 05-07-2023 Estimated Creatinine Clearance Calc 131.56 ml/min [facility] Estimated GFR (MDRD) Amer 154 mL/min >60 [facility] Comment on above: GFR Calc Estimated GFR (MDRD) Non-Af Amer 127 mL/min >60 [facility] Comment on above: Non- GFR Calc 127 mL/min >60 [facility] 154 mL/min >60 [facility] 131.56 ml/min [facility] 17.1 RATIO 10-20 [facility] 26.0 mmol/L 21.0-32.0 [facility] Serum or plasma calcium hussein urement (mass/volume)Ordered By: Rickey Gifford on 05-07-2023 Calcium [Mass/Vol] 8.4 mg/dL 8.5-10.1 [facility] Serum or plasma creatinine m easurement (mass/volume)Ordered By: Rickey Gifford on 05-07-2023 Creatinine [Mass/Vol] 0.58 mg/dL 0.55-1.02 [facility] Comment on above: The validity of the calculated GFR & GFRAA in patients over 70 years has not been determined. Clinical correlation is essential. Serum or plasma urea nitroge n measurement (mass/volume)Ordered By: Rickey Gifford on 05-07-2023 Urea nitrogen [Mass/Vol] 10 mg/dL 7-18 [facility] Thin prep Papanicolaou smear with manual screeningOrdered By: Rickey Gifford on 05-07-2023 Thin prep Papanicolaou smear with manual screening 4 5-15 [facility] Absolute lymphocyte countOrd ered By: Rickey Gifford on 05-06-2023 Lymphocytes Auto (Unsp spec) [#/Vol] 2.89 10*3/uL 0.83-4.51 [facility] Basophil percentageOrdered B y: Rickey Gifford on 05-06-2023 Basophils (Bld) [#/Vol] 5.8 10*3/uL 4.4-11.0 [facility] Basophils (Bld) [#/Vol] 2.4 10*3/uL 2.0-7.7 [facility] Basophils/100 WBC (Bld) 40.5 % 47-70 [facility] Basophils/100 WBC (Bld) 0.3 % 0-5 [facility] Basophils/100 WBC (Bld) 0.5 % 0-1 [facility] Eosinophils/100 WBC (Bld) 0.3 % 0-5 [facility] Neutrophils (Bld) [#/Vol] 2.4 10*3/uL 2.0-7.7 [facility] Neutrophils/100 WBC (Bld) 40.5 % 47-70 [facility] WBC (Bld) [#/Vol] 5.8 10*3/uL 4.4-11.0 [facility] Blood erythrocytes count (nu mber/volume)Ordered By: Rickey Gifford on 05-06-2023 RBC (Bld) [#/Vol] 3.54 10*6/uL 4.2-5.4 [facility] Blood hemoglobin measurement (mass/volume)Ordered By: Rickey Gifford on 05-06-2023 Hemoglobin (Bld) [Mass/Vol] 10.1 g/dL 12.0-15.0 [facility] Blood lymphocytes/100 leukoc ytesOrdered By: Rickey Gifford on 05-06-2023 Lymphocytes/100 WBC (Bld) 49.6 % 19-41 [facility] Blood monocytes/100 leukocyt esOrdered By: Rickey Gifford on 05-06-2023 Monocytes/100 WBC (Bld) 8.4 % 0-10 [facility] Blood platelet mean volumeOr dered By: Rickey Gifford on 05-06-2023 Platelet mean volume (Bld) [Entitic vol] 9.4 fL 6.2-12.0 [facility] Determination of erythrocyte mean corpuscular volume (MCV)Ordered By: Rickey Gifford on 05-06-2023 MCV (RBC) [Entitic vol] 92.7 fL 81-99 [facility] Hematocrit Auto (Bld) [Volum e fraction]Ordered By: Rickey Gifford on 05-06-2023 Hematocrit (Bld) [Volume fraction] 32.8 % 37-47 [facility] - Hematology and Cell countsOrdered By: Rickey Gifford on 05-06-2023 Erythrocyte distribution width (RBC) [Entitic vol] 54.6 fL 35.1-43.9 [facility] Erythrocyte distribution width (RBC) [Ratio] 15.9 % 11.6-14.6 [facility] Immature granulocytes/100 WBC (Bld) 0.700 % 0.0-0.9 [facility] Comment on above: IG% - Immature Granu locytes (promyelocytes, myelocytes and metamyelocytes) > 1% indicates that a LEFT SHIFT is Present. MCH (RBC) [Entitic mass] 28.5 pg 27.0-32.0 [facility] Nucleated RBC/100 WBC (Bld) [Ratio] 0 % 0-5 [facility] MCHC Auto (RBC) [Mass/Vol]Or dered By: Rickey Gifford on 05-06-2023 MCHC (RBC) [Mass/Vol] 30.8 g/dL 32-36 [facility] No Panel InformationOrdered By: Rickey Gifford on 05-06-2023 28.5 pg 27.0-32.0 [facility] 15.9 % 11.6-14.6 [facility] 54.6 fl 35.1-43.9 [facility] 0.700 % 0.0-0.9 [facility] 0 % 0-5 [facility] Platelets bldOrdered By: Ivy Gifford on 05-06-2023 Platelets (Bld) [#/Vol] 317 10*3/uL 150-450 [facility] Serum or plasma trough vanco mycin levelOrdered By: Rickey Gifford on 05-05-2023 Vancomycin trough [Mass/Vol] 15.1 ug/mL 5.0-15.0 [facility] Comment on above: VANCOMYCIN STANDARED DRUG THERAPY TROUGH LEVEL: 5.0 - 15.0 mg/L VANCOMYCIN HIGH INTENSITY THERAPY TROUGH LEVEL: 15.0 - 20.0 mg/L High Intensity therapy recommended for serious lifethreatening infections include:- Gkhuuzumqh-Mvymbmckhqau-Blwhjhinz (Ventilator/Healtcare Associated)-Sepsis PLEASE CONTACT PHARMACY SERVICES (#[id number]) FOR INTERPRETATIONOF RESULTS. Absolute lymphocyte countOrd ered By: Javy Doss on 05-04-2023 Lymphocytes Auto (Unsp spec) [#/Vol] 1.65 10*3/uL 0.83-4.51 [facility] Bacteria identified Anaer cx Nom (Unsp spec)Ordered By: Abdirizak Forrest on 05-04-2023 Anaerobic Culture Bacteroides fragilis [facility] Bacteria identified Cx Nom ( Wound)Ordered By: Abdirizak Forrest on 05-04-2023 Wound Culture Streptococcus dysgalactiae dys [facility] Routine wound culture Streptococcus dysgalactiae dys [facility] Basophil percentageOrdered B y: Javy Doss on 05-04-2023 Basophil percentage 207 mg/dL 74-106 [facility] Basophil percentage 133 mmol/L 136-145 [facility] Basophil percentage 3.8 mmol/L 3.5-5.1 [facility] Basophil percentage 102 mmol/L 98-107 [facility] Basophil percentage 1.9 mmol/L 0.4-2.0 [facility] Basophils (Bld) [#/Vol] 11.1 10*3/uL 4.4-11.0 [facility] Basophils (Bld) [#/Vol] 8.1 10*3/uL 2.0-7.7 [facility] Basophils/100 WBC (Bld) 73.2 % 47-70 [facility] Basophils/100 WBC (Bld) 0.0 % 0-5 [facility] Basophils/100 WBC (Bld) 0.4 % 0-1 [facility] Lactate [Moles/Vol] 1.9 mmol/L 0.4-2.0 [facility] Blood erythrocytes count (nu mber/volume)Ordered By: Javy Doss on 05-04-2023 RBC (Bld) [#/Vol] 3.68 10*6/uL 4.2-5.4 [facility] Blood hemoglobin measurement (mass/volume)Ordered By: Javy Doss on 05-04-2023 Hemoglobin (Bld) [Mass/Vol] 10.5 g/dL 12.0-15.0 [facility] Blood lymphocytes/100 leukoc ytesOrdered By: Javy Doss on 05-04-2023 Lymphocytes/100 WBC (Bld) 14.9 % 19-41 [facility] Blood monocytes/100 leukocyt esOrdered By: Javy Doss on 05-04-2023 Monocytes/100 WBC (Bld) 10.2 % 0-10 [facility] Blood platelet mean volumeOr dered By: Javy Doss on 05-04-2023 Platelet mean volume (Bld) [Entitic vol] 9.2 fL 6.2-12.0 [facility] Determination of erythrocyte mean corpuscular volume (MCV)Ordered By: Javy Doss on 05-04-2023 MCV (RBC) [Entitic vol] 89.1 fL 81-99 [facility] Erythrocyte sedimentation ra teOrdered By: Abdirizak Forrest on 05-04-2023 ESR (Bld) [Velocity] 88 mm/h 0-30 [facility] Fungus cultureOrdered By: Neva Forrest on 05-04-2023 Fungus identified Cx Nom (Unsp spec) [facility] Fungus stainOrdered By: Jonas Forrest on 05-04-2023 Fungus identified Fungus stain Nom (Unsp spec) [facility] Gram stain for investigation of transfusion reactionOrdered By: Abdirizak Forrest on 05-04-2023 Microscopic observation Gram stain Nom (Unsp spec) [facility] Microscopic observation Gram stain Nom (Unsp spec) [facility] Hematocrit Auto (Bld) [Volum e fraction]Ordered By: Javy Doss on 05-04-2023 Hematocrit (Bld) [Volume fraction] 32.8 % 37-47 [facility] Laboratory - Chemistry and C hemistry - challengeOrdered By: Ronald Hilario on 05-04-2023 HCG ( test) Ql (U) Negative [facility] Comment on above: Very dilute urine sp ecimens, as indicated by a low specificgravity, may not contain underwriting sales representative levels of hCG. If is still suspected, a first morning urinespecimen should be collected 48 hours later and tested. Laboratory - Microbiology an d Antimicrobial susceptibilityOrdered By: Javy Doss on 05-04-2023 Bacteria identified Cx Nom (Bld) No growth in 5 days. [facility] MCHC Auto (RBC) [Mass/Vol]Or dered By: Javy Doss on 05-04-2023 MCHC (RBC) [Mass/Vol] 32.0 g/dL 32-36 [facility] No Panel InformationOrdered By: Ronald Hilario on 05-04-2023 Negative [facility] No Panel InformationOrdered By: Javy Doss on 05-04-2023 No growth in 5 days. [facility] 28.5 pg 27.0-32.0 [facility] 15.9 % 11.6-14.6 [facility] 52.3 fl 35.1-43.9 [facility] 1.300 % 0.0-0.9 [facility] 0 % 0-5 [facility] 100 mL/min >60 [facility] 121 mL/min >60 [facility] 105.98 ml/min [facility] 12.5 RATIO 10-20 [facility] 27.0 mmol/L 21.0-32.0 [facility] Platelets bldOrdered By: Haylee Doss on 05-04-2023 Platelets (Bld) [#/Vol] 333 10*3/uL 150-450 [facility] Serum or plasma C reactive p rotein measurement (mass/volume)Ordered By: Abdirizak Forrest on 05-04-2023 CRP [Mass/Vol] 117.00 mg/L 0.0-3.0 [facility] Comment on above: C-Reactive Protein ( CRP) provides useful information for thediagnosis, therapy and monitoring of inflammatory processesand associated diseases. For the evaluation of Relative Riskfor Cardiovascular Disease, a High Sensitivity CRP (HSCRP)should be ordered. Serum or plasma calcium hussein urement (mass/volume)Ordered By: Javy Doss on 05-04-2023 Calcium [Mass/Vol] 8.7 mg/dL 8.5-10.1 [facility] Serum or plasma creatinine m easurement (mass/volume)Ordered By: Javy Doss on 05-04-2023 Creatinine [Mass/Vol] 0.72 mg/dL 0.55-1.02 [facility] Serum or plasma urea nitroge n measurement (mass/volume)Ordered By: Javy Doss on 05-04-2023 Urea nitrogen [Mass/Vol] 9 mg/dL 7-18 [facility] Thin prep Papanicolaou smear with manual screeningOrdered By: Javy Doss on 05-04-2023 Thin prep Papanicolaou smear with manual screening 4 5-15 [facility] Whole blood hemoglobin A1c/t otal hemoglobin ratio (mass fraction)Ordered By: Abdirizak Forrest on 05-04-2023 HbA1c (Bld) [Mass fraction] 7.2 % 3.8-5.6 [facility] Comment on above: Normal < 5.7 % Predi abetic 5.7 - 6.4 % Diabetic >or= 6.5 % Please note range changes. Absolute lymphocyte countOrd ered By: Deann Guerrero on 04-14-2023 Lymphocytes Auto (Unsp spec) [#/Vol] 3.05 10*3/uL 0.83-4.51 [facility] Basophil percentageOrdered B y: Deann Guerrero on 04-14-2023 Basophil percentage 179 mg/dL 74-106 [facility] Basophil percentage 8.2 g/dL 6.4-8.2 [facility] Basophil percentage 0.60 mg/dL 0.20-1.00 [facility] Basophil percentage 135 mmol/L 136-145 [facility] Basophil percentage 3.6 mmol/L 3.5-5.1 [facility] Basophil percentage 103 mmol/L 98-107 [facility] Basophils (Bld) [#/Vol] 7.8 10*3/uL 4.4-11.0 [facility] Basophils (Bld) [#/Vol] 4.1 10*3/uL 2.0-7.7 [facility] Basophils/100 WBC (Bld) 52.8 % 47-70 [facility] Basophils/100 WBC (Bld) 0.3 % 0-5 [facility] Basophils/100 WBC (Bld) 0.5 % 0-1 [facility] Bilirubin [Mass/Vol] 0.60 mg/dL 0.20-1.00 [facility] Comment on above: For patients on eltr ombopag therapy, use of [place] TBIL is not recommended. Chloride [Moles/Vol] 103 mmol/L 98-107 [facility] Eosinophils/100 WBC (Bld) 0.3 % 0-5 [facility] Glucose [Mass/Vol] 179 mg/dL 74-106 [facility] Comment on above: Fasting Glucose resu lt greater than or equal to 126 mg/dL suggests DIABETES MELLITUS per A.D.A. criteria. Neutrophils (Bld) [#/Vol] 4.1 10*3/uL 2.0-7.7 [facility] Neutrophils/100 WBC (Bld) 52.8 % 47-70 [facility] Potassium [Moles/Vol] 3.6 mmol/L 3.5-5.1 [facility] Protein [Mass/Vol] 8.2 g/dL 6.4-8.2 [facility] Sodium [Moles/Vol] 135 mmol/L 136-145 [facility] WBC (Bld) [#/Vol] 7.8 10*3/uL 4.4-11.0 [facility] Blood erythrocytes count (nu mber/volume)Ordered By: Deann Guerrero on 04-14-2023 RBC (Bld) [#/Vol] 4.57 10*6/uL 4.2-5.4 [facility] Blood hemoglobin measurement (mass/volume)Ordered By: Deann Guerrero on 04-14-2023 Hemoglobin (Bld) [Mass/Vol] 12.8 g/dL 12.0-15.0 [facility] Blood lymphocytes/100 leukoc ytesOrdered By: Deann Guerrero on 04-14-2023 Lymphocytes/100 WBC (Bld) 39.3 % 19-41 [facility] Blood monocytes/100 leukocyt esOrdered By: Deann Guerrero on 04-14-2023 Monocytes/100 WBC (Bld) 6.1 % 0-10 [facility] Blood platelet mean volumeOr dered By: Deann Guerrero on 04-14-2023 Platelet mean volume (Bld) [Entitic vol] 8.3 fL 6.2-12.0 [facility] Determination of erythrocyte mean corpuscular volume (MCV)Ordered By: Deann Guerrero on 04-14-2023 MCV (RBC) [Entitic vol] 87.7 fL 81-99 [facility] Direct bilirubinOrdered By: Deann Guerrero on 04-14-2023 Bilirubin.direct [Mass/Vol] 0.16 mg/dL 0.00-0.30 [facility] Hematocrit Auto (Bld) [Volum e fraction]Ordered By: Deann Guerrero on 04-14-2023 Hematocrit (Bld) [Volume fraction] 40.1 % 37-47 [facility] Laboratory - Chemistry and C hemistry - challengeOrdered By: Deann Guerrero on 04-14-2023 ALP [Catalytic activity/Vol] 111 U/L 45-117 [facility] ALT [Catalytic activity/Vol] 23 U/L 13-56 [facility] CO2 [Moles/Vol] 25.0 mmol/L 21.0-32.0 [facility] Globulin (S) [Mass/Vol] 5.0 g/dL 2.2-4.2 [facility] Lipase [Catalytic activity/Vol] 80 U/L 13-75 [facility] Comment on above: Please note:LIPASE r evised reference range effective 22. New Lipase methodology. Expected to produce lower values than the previous assay method. NEW Reference Range: 13 - 75 U/L Urea nitrogen/Creatinine [Mass ratio] 9.6 mg/mg 10-20 [facility] Laboratory - Hematology and Cell countsOrdered By: Deann Guerrero on 04-14-2023 Erythrocyte distribution width (RBC) [Entitic vol] 48.6 fL 35.1-43.9 [facility] Erythrocyte distribution width (RBC) [Ratio] 16.4 % 11.6-14.6 [facility] Immature granulocytes/100 WBC (Bld) 1.000 % 0.0-0.9 [facility] Comment on above: IG% - Immature Granu locytes (promyelocytes, myelocytes and metamyelocytes) > 1% indicates that a LEFT SHIFT is Present. MCH (RBC) [Entitic mass] 28.0 pg 27.0-32.0 [facility] Nucleated RBC/100 WBC (Bld) [Ratio] 0 % 0-5 [facility] MCHC Auto (RBC) [Mass/Vol]Or dered By: Deann Guerrero on 04-14-2023 MCHC (RBC) [Mass/Vol] 31.9 g/dL 32-36 [facility] No Panel InformationOrdered By: Deann Guerrero on 04-14-2023 Estimated Creatinine Clearance Calc 73.37 ml/min [facility] Estimated GFR (MDRD) Amer 79 mL/min >60 [facility] Comment on above: GFR Calc Estimated GFR (MDRD) Non-Af Amer 66 mL/min >60 [facility] Comment on above: Non- GFR Calc 28.0 pg 27.0-32.0 [facility] 16.4 % 11.6-14.6 [facility] 48.6 fl 35.1-43.9 [facility] 1.000 % 0.0-0.9 [facility] 0 % 0-5 [facility] 66 mL/min >60 [facility] 79 mL/min >60 [facility] 73.37 ml/min [facility] 9.6 RATIO 10-20 [facility] 5.0 g/dL 2.2-4.2 [facility] 80 U/L 13- [facility] 111 U/L 45-117 [facility] 23 U/L 13-56 [facility] 25.0 mmol/L 21.0-32.0 [facility] Platelets bldOrdered By: Sulema Guerrero on 04-14-2023 Platelets (Bld) [#/Vol] 565 10*3/uL 150-450 [facility] Serum or plasma albumin hussein urement (mass/volume)Ordered By: Deann Guerrero on 04-14-2023 Albumin [Mass/Vol] 3.2 g/dL 3.2-5.0 [facility] Serum or plasma calcium hussein urement (mass/volume)Ordered By: Deann Guerrero on 04-14-2023 Calcium [Mass/Vol] 9.5 mg/dL 8.5-10.1 [facility] Serum or plasma creatinine m easurement (mass/volume)Ordered By: Deann Guerrero on 04-14-2023 Creatinine [Mass/Vol] 1.04 mg/dL 0.55-1.02 [facility] Comment on above: The validity of the calculated GFR & GFRAA in patients over 70 years has not been determined. Clinical correlation is essential. Serum or plasma urea nitroge n measurement (mass/volume)Ordered By: Deann Guerrero on 04-14-2023 Urea nitrogen [Mass/Vol] 10 mg/dL 7-18 [facility] Thin prep Papanicolaou smear with manual screeningOrdered By: Deann Guerrero on 04-14-2023 Thin prep Papanicolaou smear with manual screening 13 U/L 15-37 [facility] Thin prep Papanicolaou smear with manual screening 7 5-15 [facility] Absolute lymphocyte countOrd ered By: Poli Barfield on 04-13-2023 Lymphocytes Auto (Unsp spec) [#/Vol] 3.04 10*3/uL 0.83-4.51 [facility] Basophil percentageOrdered B y: Poli Barfield on 04-13-2023 Basophil percentage 280 mg/dL 74-106 [facility] Basophil percentage 7.8 g/dL 6.4-8.2 [facility] Basophil percentage 0.60 mg/dL 0.20-1.00 [facility] Basophil percentage 132 mmol/L 136-145 [facility] Basophil percentage 4.0 mmol/L 3.5-5.1 [facility] Basophil percentage 100 mmol/L 98-107 [facility] Basophils (Bld) [#/Vol] 8.7 10*3/uL 4.4-11.0 [facility] Basophils (Bld) [#/Vol] 5.1 10*3/uL 2.0-7.7 [facility] Basophils/100 WBC (Bld) 58.8 % 47-70 [facility] Basophils/100 WBC (Bld) 0.1 % 0-5 [facility] Basophils/100 WBC (Bld) 0.6 % 0-1 [facility] Bilirubin [Mass/Vol] 0.60 mg/dL 0.20-1.00 [facility] Comment on above: For patients on eltr ombopag therapy, use of [employer] TBIL is not recommended. Chloride [Moles/Vol] 100 mmol/L 98-107 [facility] Eosinophils/100 WBC (Bld) 0.1 % 0-5 [facility] Glucose [Mass/Vol] 280 mg/dL 74-106 [facility] Comment on above: Glucose result great er than or equal to 200 mg/dLsuggests DIABETES MELLITUS per A.D.A. criteria. Neutrophils (Bld) [#/Vol] 5.1 10*3/uL 2.0-7.7 [facility] Neutrophils/100 WBC (Bld) 58.8 % 47-70 [facility] Potassium [Moles/Vol] 4.0 mmol/L 3.5-5.1 [facility] Protein [Mass/Vol] 7.8 g/dL 6.4-8.2 [facility] Sodium [Moles/Vol] 132 mmol/L 136-145 [facility] WBC (Bld) [#/Vol] 8.7 10*3/uL 4.4-11.0 [facility] Beta hCG serum qualOrdered B y: Poli Barfield on 04-13-2023 Beta HCG ( test) Ql Negative [facility] Blood erythrocytes count (nu mber/volume)Ordered By: Poli Bafrield on 04-13-2023 RBC (Bld) [#/Vol] 4.42 10*6/uL 4.2-5.4 [facility] Blood hemoglobin measurement (mass/volume)Ordered By: Poli Barfield on 04-13-2023 Hemoglobin (Bld) [Mass/Vol] 12.6 g/dL 12.0-15.0 [facility] Blood lymphocytes/100 leukoc ytesOrdered By: Poli Barfield on 04-13-2023 Lymphocytes/100 WBC (Bld) 35.1 % 19-41 [facility] Blood monocytes/100 leukocyt esOrdered By: Poli Barfield on 04-13-2023 Monocytes/100 WBC (Bld) 4.6 % 0-10 [facility] Blood platelet mean volumeOr dered By: Poli Barfield on 04-13-2023 Platelet mean volume (Bld) [Entitic vol] 8.3 fL 6.2-12.0 [facility] Determination of erythrocyte mean corpuscular volume (MCV)Ordered By: Poli Barfield on 04-13-2023 MCV (RBC) [Entitic vol] 87.3 fL 81-99 [facility] Hematocrit Auto (Bld) [Volum e fraction]Ordered By: Poli Barfield on 04-13-2023 Hematocrit (Bld) [Volume fraction] 38.6 % 37-47 [facility] Laboratory - Chemistry and C hemistry - challengeOrdered By: Poli Barfield on 04-13-2023 ALP [Catalytic activity/Vol] 114 U/L 45-117 [facility] ALT [Catalytic activity/Vol] 23 U/L 13-56 [facility] CO2 [Moles/Vol] 24.0 mmol/L 21.0-32.0 [facility] Globulin (S) [Mass/Vol] 4.8 g/dL 2.2-4.2 [facility] Lipase [Catalytic activity/Vol] 98 U/L 13-75 [facility] Comment on above: Please note:LIPASE r evised reference range effective 22. New Lipase methodology. Expected to produce lower values than the previous assay method. NEW Reference Range: 13 - 75 U/L Urea nitrogen/Creatinine [Mass ratio] 9.4 mg/mg 10-20 [facility] - Hematology and Cell countsOrdered By: Poli Barfield on 04-13-2023 Erythrocyte distribution width (RBC) [Entitic vol] 47.7 fL 35.1-43.9 [facility] Erythrocyte distribution width (RBC) [Ratio] 16.6 % 11.6-14.6 [facility] Immature granulocytes/100 WBC (Bld) 0.800 % 0.0-0.9 [facility] Comment on above: IG% - Immature Granu locytes (promyelocytes, myelocytes and metamyelocytes) > 1% indicates that a LEFT SHIFT is Present. MCH (RBC) [Entitic mass] 28.5 pg 27.0-32.0 [facility] Nucleated RBC/100 WBC (Bld) [Ratio] 0 % 0-5 [facility] MCHC Auto (RBC) [Mass/Vol]Or dered By: Poli Barfield on 04-13-2023 MCHC (RBC) [Mass/Vol] 32.6 g/dL 32-36 [facility] No Panel InformationOrdered By: Poli Barfield on 04-13-2023 Estimated Creatinine Clearance Calc 59.62 ml/min [facility] Estimated GFR (MDRD) Amer 63 mL/min >60 [facility] Comment on above: GFR Calc Estimated GFR (MDRD) Non-Af Amer 52 mL/min >60 [facility] Comment on above: Non- GFR Calc 28.5 pg 27.0-32.0 [facility] 16.6 % 11.6-14.6 [facility] 47.7 fl 35.1-43.9 [facility] 0.800 % 0.0-0.9 [facility] 0 % 0-5 [facility] 52 mL/min >60 [facility] 63 mL/min >60 [facility] 59.62 ml/min [facility] 9.4 RATIO 10-20 [facility] 4.8 g/dL 2.2-4.2 [facility] 98 U/L 13-75 [facility] 114 U/L 45-117 [facility] 23 U/L 13-56 [facility] 24.0 mmol/L 21.0-32.0 [facility] Platelets bldOrdered By: Devon Barfield on 04-13-2023 Platelets (Bld) [#/Vol] 542 10*3/uL 150-450 [facility] Serum or plasma albumin hussein urement (mass/volume)Ordered By: Poli Barfield on 04-13-2023 Albumin [Mass/Vol] 3.0 g/dL 3.2-5.0 [facility] Serum or plasma albumin/glob ulin mass ratioOrdered By: Poli Barfield on 04-13-2023 Albumin/Globulin [Mass ratio] 0.6 {ratio} 0.9-2.4 [facility] Serum or plasma calcium hussein urement (mass/volume)Ordered By: Poli Barfield on 04-13-2023 Calcium [Mass/Vol] 9.5 mg/dL 8.5-10.1 [facility] Serum or plasma creatinine m easurement (mass/volume)Ordered By: Poli Barfield on 04-13-2023 Creatinine [Mass/Vol] 1.28 mg/dL 0.55-1.02 [facility] Comment on above: The validity of the calculated GFR & GFRAA in patients over 70 years has not been determined. Clinical correlation is essential. Serum or plasma urea nitroge n measurement (mass/volume)Ordered By: Poli Barfield on 04-13-2023 Urea nitrogen [Mass/Vol] 12 mg/dL 7-18 [facility] Thin prep Papanicolaou smear with manual screeningOrdered By: Poli Barfield on 04-13-2023 Thin prep Papanicolaou smear with manual screening 17 U/L 15-37 [facility] Thin prep Papanicolaou smear with manual screening 8 5-15 [facility] Absolute lymphocyte countOrd ered By: Rickey Shepard on 03-06-2023 Lymphocytes Auto (Unsp spec) [#/Vol] 3.14 10*3/uL 0.83-4.51 [facility] Basophil percentageOrdered B y: Rickey Shepard on 03-06-2023 Basophil percentage 215 mg/dL 74-106 [facility] Basophil percentage 8.4 g/dL 6.4-8.2 [facility] Basophil percentage 0.50 mg/dL 0.20-1.00 [facility] Basophil percentage 134 mmol/L 136-145 [facility] Basophil percentage 3.1 mmol/L 3.5-5.1 [facility] Basophil percentage 101 mmol/L 98-107 [facility] Basophil percentage 2.2 mmol/L 0.4-2.0 [facility] Basophils (Bld) [#/Vol] 10.9 10*3/uL 4.4-11.0 [facility] Basophils (Bld) [#/Vol] 6.9 10*3/uL 2.0-7.7 [facility] Basophils/100 WBC (Bld) 62.8 % 47-70 [facility] Basophils/100 WBC (Bld) 0.2 % 0-5 [facility] Basophils/100 WBC (Bld) 0.4 % 0-1 [facility] Bilirubin [Mass/Vol] 0.50 mg/dL 0.20-1.00 [facility] Comment on above: For patients on eltr ombopag therapy, use of [employer] [place] TBIL is not recommended. Chloride [Moles/Vol] 101 mmol/L 98-107 [facility] Eosinophils/100 WBC (Bld) 0.2 % 0-5 [facility] Glucose [Mass/Vol] 215 mg/dL 74-106 [facility] Comment on above: Glucose result great er than or equal to 200 mg/dLsuggests DIABETES MELLITUS per A.D.A. criteria. Lactate [Moles/Vol] 2.2 mmol/L 0.4-2.0 [facility] Comment on above: Critical Result(s) C alled at: 09:58:40 03/06/2023 by: Gayathri Wilhelm. Results read back by same. Neutrophils (Bld) [#/Vol] 6.9 10*3/uL 2.0-7.7 [facility] Neutrophils/100 WBC (Bld) 62.8 % 47-70 [facility] Potassium [Moles/Vol] 3.1 mmol/L 3.5-5.1 [facility] Protein [Mass/Vol] 8.4 g/dL 6.4-8.2 [facility] Sodium [Moles/Vol] 134 mmol/L 136-145 [facility] WBC (Bld) [#/Vol] 10.9 10*3/uL 4.4-11.0 [facility] Basophil percentage 0 SEEN /hpf 0-5 [facility] Bilirubin Test strip Ql (U)O rdered By: Rickey Shepard on 03-06-2023 Bilirubin Ql (U) Negative Negative [facility] Blood erythrocytes count (nu mber/volume)Ordered By: Rickey Shepard on 03-06-2023 RBC (Bld) [#/Vol] 4.33 10*6/uL 4.2-5.4 [facility] Blood hemoglobin measurement (mass/volume)Ordered By: Rickey Shepard on 03-06-2023 Hemoglobin (Bld) [Mass/Vol] 11.5 g/dL 12.0-15.0 [facility] Blood lymphocytes/100 leukoc ytesOrdered By: Rickey Shepard on 03-06-2023 Lymphocytes/100 WBC (Bld) 28.8 % 19-41 [facility] Blood monocytes/100 leukocyt esOrdered By: Rickey Shepard on 03-06-2023 Monocytes/100 WBC (Bld) 7.2 % 0-10 [facility] Blood platelet mean volumeOr dered By: Rickey Shepard on 03-06-2023 Platelet mean volume (Bld) [Entitic vol] 9.2 fL 6.2-12.0 [facility] Determination of erythrocyte mean corpuscular volume (MCV)Ordered By: Rickey Shepard on 03-06-2023 MCV (RBC) [Entitic vol] 82.7 fL 81-99 [facility] Hematocrit Auto (Bld) [Volum e fraction]Ordered By: Rickey Shepard on 03-06-2023 Hematocrit (Bld) [Volume fraction] 35.8 % 37-47 [facility] INR in Blood by Coagulation assayOrdered By: Rickey Shepard on 03-06-2023 INR Coag (Bld) [Relative time] 1.2 {INR} [facility] Ketones Test strip Ql (U)Ord ered By: Rickey Shepard on 03-06-2023 Ketones Ql (U) Negative Negative [facility] Laboratory - Chemistry and C hemistry - challengeOrdered By: Rickey Shepard on 03-06-2023 ALP [Catalytic activity/Vol] 109 U/L 45-117 [facility] ALT [Catalytic activity/Vol] 13 U/L 13-56 [facility] CO2 [Moles/Vol] 25.0 mmol/L 21.0-32.0 [facility] Globulin (S) [Mass/Vol] 5.2 g/dL 2.2-4.2 [facility] Lipase [Catalytic activity/Vol] 59 U/L 13-75 [facility] Comment on above: Please note:LIPASE r evised reference range effective 22. New Lipase methodology. Expected to produce lower values than the previous assay method. NEW Reference Range: 13 - 75 U/L Urea nitrogen/Creatinine [Mass ratio] 4.0 mg/mg 10-20 [facility] Laboratory - CoagulationOrde red By: Rickey Shepard on 03-06-2023 aPTT Coag (Bld) [Time] 28.8 s 24.1-36.2 [facility] PT Coag (PPP) [Time] 14.8 s 11.7-14.9 [facility] Laboratory - Hematology and Cell countsOrdered By: Rickey Shepard on 03-06-2023 Erythrocyte distribution width (RBC) [Entitic vol] 41.1 fL 35.1-43.9 [facility] Erythrocyte distribution width (RBC) [Ratio] 13.6 % 11.6-14.6 [facility] Immature granulocytes/100 WBC (Bld) 0.600 % 0.0-0.9 [facility] Comment on above: IG% - Immature Granu locytes (promyelocytes, myelocytes and metamyelocytes) > 1% indicates that a LEFT SHIFT is Present. MCH (RBC) [Entitic mass] 26.6 pg 27.0-32.0 [facility] Nucleated RBC/100 WBC (Bld) [Ratio] 0 % 0-5 [facility] MCHC Auto (RBC) [Mass/Vol]Or dered By: Rickey Shepard on 03-06-2023 MCHC (RBC) [Mass/Vol] 32.1 g/dL 32-36 [facility] Mucus LM Ql (Urine sed)Order ed By: Rickey Shepard on 03-06-2023 Mucus Ql (Urine sed) 0 SEEN /hpf [facility] Nitrite Test strip Ql (U)Ord ered By: Rickey Shepard on 03-06-2023 Nitrite Ql (U) Negative Negative [facility] No Panel InformationOrdered By: Rickey Shepard on 03-06-2023 Estimated Creatinine Clearance Calc 75.55 ml/min [facility] Estimated GFR (MDRD) Amer 82 mL/min >60 [facility] Comment on above: GFR Calc Estimated GFR (MDRD) Non-Af Amer 68 mL/min >60 [facility] Comment on above: Non- GFR Calc 26.6 pg 27.0-32.0 [facility] 13.6 % 11.6-14.6 [facility] 41.1 fl 35.1-43.9 [facility] 0.600 % 0.0-0.9 [facility] 0 % 0-5 [facility] 14.8 SECONDS 11.7-14.9 [facility] 28.8 Seconds 24.1-36.2 [facility] 68 mL/min >60 [facility] 82 mL/min >60 [facility] 75.55 ml/min [facility] 4.0 RATIO 10-20 [facility] 5.2 g/dL 2.2-4.2 [facility] 59 U/L 13-75 [facility] 109 U/L 45-117 [facility] 13 U/L 13-56 [facility] 25.0 mmol/L 21.0-32.0 [facility] Platelets bldOrdered By: Ivy Shepard on 03-06-2023 Platelets (Bld) [#/Vol] 412 10*3/uL 150-450 [facility] Protein Test strip Ql (U)Ord ered By: Rickey Shepard on 03-06-2023 Protein Ql (U) 30 mg/dl Negative [facility] Serum or plasma acetone hussein urement (mass/volume)Ordered By: Rickey Shepard on 03-06-2023 Acetone [Mass/Vol] Negative NEG [facility] Serum or plasma albumin hussein urement (mass/volume)Ordered By: Rickey Shepard on 03-06-2023 Albumin [Mass/Vol] 3.2 g/dL 3.2-5.0 [facility] Serum or plasma albumin/glob ulin mass ratioOrdered By: Rickey Shepard on 03-06-2023 Albumin/Globulin [Mass ratio] 0.6 {ratio} 0.9-2.4 [facility] Serum or plasma calcium hussein urement (mass/volume)Ordered By: Rickey Shepard on 03-06-2023 Calcium [Mass/Vol] 9.3 mg/dL 8.5-10.1 [facility] Serum or plasma creatinine m easurement (mass/volume)Ordered By: Rickey Shepard on 03-06-2023 Creatinine [Mass/Vol] 1.01 mg/dL 0.55-1.02 [facility] Comment on above: The validity of the calculated GFR & GFRAA in patients over 70 years has not been determined. Clinical correlation is essential. Serum or plasma urea nitroge n measurement (mass/volume)Ordered By: Rickey Shepard on 03-06-2023 Urea nitrogen [Mass/Vol] 4 mg/dL 7-18 [facility] Squamous epithelial cells de tection in urine sediment by light microscopyOrdered By: Rickey Shepard on 03-06-2023 Epithelial cells.squamous LM Ql (Urine sed) 0-5 SEEN /hpf 5-10 [facility] Thin prep Papanicolaou smear with manual screeningOrdered By: Rickey Shepard on 03-06-2023 Thin prep Papanicolaou smear with manual screening 7 U/L 15-37 [facility] Thin prep Papanicolaou smear with manual screening 8 5-15 [facility] Urine blood detectionOrdered By: Rickey Shepard on 03-06-2023 RBC Ql (U) 10 /ul Negative [facility] RBC Ql (U) 0 SEEN /hpf 0-5 [facility] Urine clarityOrdered By: Ivy Shepard on 03-06-2023 Clarity (U) Clear Clear [facility] Urine color determinationOrd ered By: Rickey Shepard on 03-06-2023 Color (U) Yellow Yellow [facility] Urine glucose detectionOrder ed By: Rickey Shepard on 03-06-2023 Glucose Ql (U) 100 mg/dl Normal [facility] Urine leukocyte esterase det ection by dipstickOrdered By: Riceky Shepard on 03-06-2023 Leukocyte esterase Test strip Ql (U) 25 /ul Negative [facility] Urine pHOrdered By: Rickey webb on 03-06-2023 pH (U) 7.0 [pH] 5.0 - 8.0 [facility] Urine sediment bacteria coun t by microscopy (number/high power field)Ordered By: Rickey Shepard on 03-06-2023 Bacteria LM.HPF (Urine sed) [#/Area] RARE /hpf None Seen [facility] Urine specific gravity measu rementOrdered By: Rickey Shepard on 03-06-2023 Specific gravity (U) [Rel density] 1.010 1.002-1.030 [facility] Urobilinogen Auto test strip Ql (U)Ordered By: Rickey Shepard on 03-06-2023 Urobilinogen Ql (U) Normal mg/dl Normal [facility] Basic metabolic 2000 panelon 03-04-2023 Anion gap [Moles/Vol] 14 mmol/L Normal 9-18 [facility] Comment on above: Order Comment: Speci men Type: BLOOD SPECIMENOrdering Facility: [facility] Address: [address] [place] [address] Performed By: #### 2 4321-2 ####[facility] LABORATORYCLIA [id number] [place] [id number] [place] Calcium [Mass/Vol] 8.9 mg/dL Normal 8.5-10.2 [facility] Comment on above: Order Comment: Speci men Type: BLOOD SPECIMENOrdering Facility: [facility] Address: [address] [place] [address] Performed By: #### 2 4321-2 ####[facility] LABORATORYCLIA [id number] [place] [id number] [place] Chloride [Moles/Vol] 102 mmol/L Normal 97-105 [facility] Comment on above: Order Comment: Speci men Type: BLOOD SPECIMENOrdering Facility: [facility] Address: [address] [place] [address] Performed By: #### 2 4321-2 ####[facility] LABORATORYCLIA [id number] [place] [address] [place] CO2 [Moles/Vol] 21 mmol/L Low 22-30 [facility] Comment on above: Order Comment: Speci men Type: BLOOD SPECIMENOrdering Facility: [facility] Address: [address] [place] [address] Performed By: #### 2 4321-2 ####[facility] LABORATORYCLIA [id number] [place] [address] [place] Creatinine [Mass/Vol] 0.78 mg/dL Normal 0.58-0.96 [facility] Comment on above: Order Comment: Speci men Type: BLOOD SPECIMENOrdering Facility: [facility] Address: [address] [place] [address] Performed By: #### 2 4321-2 ####[facility] LABORATORYCLIA [id number] [place] [address] [facility] [place] Creatinine and Glomerular filtration rate.predicted panel (S/P/Bld) 104 mL/min/1.73m??? Normal >=60 [facility] Comment on above: Order Comment: Speci men Type: BLOOD SPECIMENOrdering Facility: [facility] Address: [address] [place] [address] Result Comment: Samreen mated Glomerular Filtration Rate [...] actual GFR. Performed By: #### 2 4321-2 ####[facility] LABORATORYCLIA [id number] [place] [address] [place] Glucose [Mass/Vol] 158 mg/dL High 74-99 [facility] Comment on above: Order Comment: Mahogany vargas Type: BLOOD SPECIMENOrdering Facility: [facility] Address: [address] [place] [address] Result Comment: The [place] Diabetes Association (ADA) provides guidance for cutoff [...] Standards of Medical Care in Diabetes 2016, [place] Diabetes [employer]. Diabetes Care. 2016.39(Suppl 1). Performed By: #### 2 4321-2 ####[facility] LABORATORYCLIA [id number] [place] [address] [place] Potassium [Moles/Vol] 3.3 mmol/L Low 3.7-5.1 [facility] Comment on above: Order Comment: Mahogany vargas Type: BLOOD SPECIMENOrdering Facility: [facility] Address: [address] [address] Performed By: #### 2 4321-2 ####[facility] LABORATORYIA [id number] [place] [address] [place] Sodium [Moles/Vol] 137 mmol/L Normal 136-144 [facility] Comment on above: Order Comment: Mahogany vargas Type: BLOOD SPECIMENOrdering Facility: [facility] Address: [address] [place] [address] Performed By: #### 2 4321-2 ####[facility] LABORATORYCLIA [id number] [place] [address] [place] Urea nitrogen [Mass/Vol] 4 mg/dL Low 7-21 [facility] Comment on above: Order Comment: Speci men Type: BLOOD SPECIMENOrdering Facility: [facility] Address: [address] [place] [address] Performed By: #### 2 4321-2 ####[facility] LABORATORYCLIA [id number] [address] [place] CBC panel Auto (Bld)on 03-04 Erythrocyte distribution width (RBC) [Ratio] 13.5 % Normal 11.5-15.0 [facility] Comment on above: Order Comment: Speci men Type: BLOOD SPECIMENOrdering Facility: [facility] Address: [address] [place] [address] Performed By: #### 5 8410-2 ####[facility] LABORATORYCLIA [id number] [address] [place] Hematocrit (Bld) [Volume fraction] 34.2 % Low 36.0-46.0 [facility] Comment on above: Order Comment: Speci men Type: BLOOD SPECIMENOrdering Facility: [facility] Address: [address] [place] [address] Performed By: #### 5 8410-2 ####[facility] LABORATORYCLIA [id number] [address] [place] [facility] Hemoglobin (Bld) [Mass/Vol] 11.5 g/dL Normal 11.5-15.5 [facility] Comment on above: Order Comment: Speci men Type: BLOOD SPECIMENOrdering Facility: [facility] Address: [address] [place] [address] Performed By: #### 5 8410-2 ####[facility] LABORATORYCLIA [id number] [address] [place] MCH (RBC) [Entitic mass] 27.4 pg Normal 26.0-34.0 [facility] Comment on above: Order Comment: Speci men Type: BLOOD SPECIMENOrdering Facility: [facility] Address: [address] [place] [address] Performed By: #### 5 8410-2 ####[facility] LABORATORYCLIA [id number] [place] [address] [place] MCHC (RBC) [Mass/Vol] 33.6 g/dL Normal 30.5-36.0 [facility] Comment on above: Order Comment: Speci men Type: BLOOD SPECIMENOrdering Facility: [facility] Address: [address] [place] [address] Performed By: #### 5 8410-2 ####[facility] LABORATORYCLIA [id number] [place] [address] [place] MCV (RBC) [Entitic vol] 81.6 fL Normal 80.0-100.0 [facility] Comment on above: Order Comment: Speci men Type: BLOOD SPECIMENOrdering Facility: [facility] Address: [address] [place] [address] Performed By: #### 5 8410-2 ####[facility] LABORATORYCLIA [id number] [place] [address] [place] Nucleated RBC (Bld) [#/Vol] 10*3/uL Normal <0.01 [facility] Comment on above: Order Comment: Speci men Type: BLOOD SPECIMENOrdering Facility: [facility] Address: [address] [place] [address] Performed By: #### 5 8410-2 ####[facility] LABORATORYCLIA [id number] [place] [address] [place] Platelet mean volume (Bld) [Entitic vol] 9.3 fL Normal 9.0-12.7 [facility] Comment on above: Order Comment: Speci men Type: BLOOD SPECIMENOrdering Facility: [facility] Address: [address] [place] [address] Performed By: #### 5 8410-2 ####[facility] LABORATORYCLIA [id number] [place] [address] [place] Platelets (Bld) [#/Vol] 362 10*3/uL Normal 150-400 [facility] Comment on above: Order Comment: Speci men Type: BLOOD SPECIMENOrdering Facility: [facility] Address: [address] [place] [address] Performed By: #### 5 8410-2 ####[facility] LABORATORYCLIA [id number] [place] [address] [place] RBC (Bld) [#/Vol] 4.19 10*6/uL Normal 3.90-5.20 [facility] Comment on above: Order Comment: Speci men Type: BLOOD SPECIMENOrdering Facility: [facility] Address: [address] [place] [address] Performed By: #### 5 8410-2 ####[facility] LABORATORYCLIA [id number] [place] [address] [place] WBC (Bld) [#/Vol] 10.19 10*3/uL Normal 3.70-11.00 [facility] Comment on above: Order Comment: Speci men Type: BLOOD SPECIMENOrdering Facility: [facility] Address: [address] [place] [address] Performed By: #### 5 8410-2 ####[facility] LABORATORYCLIA [id number] [address] [place] CNDSon 03-04-2023 [facility]DS HNO ID: [id number] Author: Kelley Lopez MD Service: ? Author [...] office evaluation. She was not evaluated by spool cleaner hand. Vomiting too frequent to count and constant [...] was prescribed stool softeners and laxatives during [facility] stay however she refuses to take them [...] to discharge in AM. Discussed with social media intern/trimming caser. Advance diet. PLAN 03/04/23: Hemodynamically is stable. Has been walking a lot. Gets anxious. Seen by psych and GI. Discussed with social media intern/trimming caser. OK to discharge the patient. Rest of management as outpatient. I personally spent more than 30 minutes for discharge of this patient. Discussed with unit PA/STRIP WINDER about care plans. Recommended to see her psychiatrist as outpatient. Has had high BP readings. Will add Losartan. Is diabetic too.. Vitals and labs were closely monitored and evaluated while hospitalized. Electrolytes were replaced as needed. Patient is stable for discharge home today. Patient should follow up with primary care physician (Amy Solorzano: [phone]) in 7-10 days for hospital follow up. Attending physician to follow up with full discharge summary. OTHER PROBLEMS/DIAGNOSIS: Principal Problem: Intractable nausea and vomiting Active Problems: DM2 (diabetes mellitus, type 2) ([facility]) HLD (hyperlipidemia) Obesity, Class I, BMI 30-34.9 Abdominal pain Constipation Anxiety and depression Borderline personality disorder ([facility]) Resolved Problems: * No resolved hospital problems. * OPERATIONS PERFORMED WHILE IN THE HOSPITAL: None IMPORTANT TEST/PROCEDURES: CT Scan EKG Xray, Gastric Emptying Study TEST RESULTS NOT AVAILABLE AT THIS TIME: No pending results Discharge Disposition Home/Self Care A (more content not included)... [facility] NURSING PROGon 03-04-2023 NURSING PROG HNO ID: [id number] Author: Shiloh Carl RN Service: Nursing Author [...] given. Pt left stable. Due care given. [facility] NURSING PROG HNO ID: [id number] Author: Hilda Dunlap RN Service: ? Author Type: Registered Nurse Type: Nursing Progress Note Filed: 03/04/2023 3:31 PM Note Text: 0725: Assumed patient care at this time. Safety maintained. 1600: Discharge instructions completed at this time. IV removed. Safety maintained. Belongings with patient. Patient has no needs at this time. [facility] Basic metabolic 2000 panelon 03-03-2023 Anion gap [Moles/Vol] 12 mmol/L Normal 9-18 [facility] Comment on above: Order Comment: Speci men Type: BLOOD SPECIMENOrdering Facility: [facility] Address: [address] [place] [address] Performed By: #### 2 4321-2 ####[facility] LABORATORYCLIA [id number] [place] [address] [place] Calcium [Mass/Vol] 9.3 mg/dL Normal 8.5-10.2 [facility] Comment on above: Order Comment: Speci men Type: BLOOD SPECIMENOrdering Facility: [facility] Address: [address] [place] [address] Performed By: #### 2 4321-2 ####[facility] LABORATORYCLIA [id number] [place] [address] [place] Chloride [Moles/Vol] 103 mmol/L Normal 97-105 [facility] Comment on above: Order Comment: Speci men Type: BLOOD SPECIMENOrdering Facility: [facility] Address: [address] [place] [address] Performed By: #### 2 4321-2 ####[facility] LABORATORYCLIA [id number] [place] [address] [place] CO2 [Moles/Vol] 24 mmol/L Normal 22-30 [facility] Comment on above: Order Comment: Speci men Type: BLOOD SPECIMENOrdering Facility: [facility] Address: [address] [address] Performed By: #### 2 4321-2 ####[facility] LABORATORYCLIA [id number] [place] [address] [place] Creatinine [Mass/Vol] 0.87 mg/dL Normal 0.58-0.96 [facility] Comment on above: Order Comment: Mahogany alicia Type: BLOOD SPECIMENOrdering Facility: [facility] Address: [address] [address] Performed By: #### 2 4321-2 ####[facility] LABORATORYCLIA [id number] [address] [place] Creatinine and Glomerular filtration rate.predicted panel (S/P/Bld) 91 mL/min/1.73m??? Normal >=60 [facility] Comment on above: Order Comment: Mahogany vargas Type: BLOOD SPECIMENOrdering Facility: [facility] Address: [address] [address] Result Comment: Samreen mated Glomerular Filtration Rate [...] actual GFR. Performed By: #### 2 4321-2 ####[facility] LABORATORYCLIA [id number] [place] [address] [place] Glucose [Mass/Vol] 137 mg/dL High 74-99 [facility] Comment on above: Order Comment: Timurkaylene vargas Type: BLOOD SPECIMENOrdering Facility: [facility] Address: [address] [address] Result Comment: The [place] Diabetes Association (ADA) provides guidance for cutoff [...] Standards of Medical Care in Diabetes 2016, [place] Diabetes [employer]. Diabetes Care. 2016.39(Suppl 1). Performed By: #### 2 4321-2 ####[facility] LABORATORYCLIA [id number] [place] [address] [place] Potassium [Moles/Vol] 3.5 mmol/L Low 3.7-5.1 [facility] Comment on above: Order Comment: Mahogany vargas Type: BLOOD SPECIMENOrdering Facility: [facility] Address: [address] [place] [address] Performed By: #### 2 4321-2 ####[facility] LABORATORYCLIA [id number] [place] [address] [place] Sodium [Moles/Vol] 139 mmol/L Normal 136-144 [facility] Comment on above: Order Comment: Mahogany vargas Type: BLOOD SPECIMENOrdering Facility: [facility] Address: [address] [place] [address] Performed By: #### 2 4321-2 ####[facility] LABORATORYCLIA [id number] [place] [address] [place] Urea nitrogen [Mass/Vol] 6 mg/dL Low 7-21 [facility] Comment on above: Order Comment: Mahogany vargas Type: BLOOD SPECIMENOrdering Facility: [facility] Address: [address] [address] Performed By: #### 2 4321-2 ####[facility] LABORATORYCLIA [id number] [place] [address] [place] CBC panel Auto (Bld)on 03-03 Erythrocyte distribution width (RBC) [Ratio] 13.2 % Normal 11.5-15.0 [facility] Comment on above: Order Comment: Speci men Type: BLOOD SPECIMENOrdering Facility: [facility] Address: [address] [address] Performed By: #### 5 8410-2 ####[facility] LABORATORYCLIA [id number] [address] [place] Hematocrit (Bld) [Volume fraction] 36.1 % Normal 36.0-46.0 [facility] Comment on above: Order Comment: Speci men Type: BLOOD SPECIMENOrdering Facility: [facility] Address: [address] [place] [address] Performed By: #### 5 8410-2 ####[facility] LABORATORYCLIA [id number] [address] [place] Hemoglobin (Bld) [Mass/Vol] 12.2 g/dL Normal 11.5-15.5 [facility] Comment on above: Order Comment: Speci men Type: BLOOD SPECIMENOrdering Facility: [facility] Address: [address] [place] [address] Performed By: #### 5 8410-2 ####[facility] LABORATORYCLIA [id number] [place] [address] [place] MCH (RBC) [Entitic mass] 27.4 pg Normal 26.0-34.0 [facility] Comment on above: Order Comment: Speci men Type: BLOOD SPECIMENOrdering Facility: [facility] Address: [address] [place] [address] Performed By: #### 5 8410-2 ####[facility] LABORATORYCLIA [id number] [address] [place] MCHC (RBC) [Mass/Vol] 33.8 g/dL Normal 30.5-36.0 [facility] Comment on above: Order Comment: Speci men Type: BLOOD SPECIMENOrdering Facility: [facility] Address: [address] [place] [address] Performed By: #### 5 8410-2 ####[facility] LABORATORYCLIA [id number] [place] [address] [place] MCV (RBC) [Entitic vol] 81.1 fL Normal 80.0-100.0 [facility] Comment on above: Order Comment: Speci men Type: BLOOD SPECIMENOrdering Facility: [facility] Address: [address] [place] [address] Performed By: #### 5 8410-2 ####[facility] LABORATORYCLIA [id number] [place] [address] [place] Nucleated RBC (Bld) [#/Vol] 10*3/uL Normal <0.01 [facility] Comment on above: Order Comment: Speci men Type: BLOOD SPECIMENOrdering Facility: [facility] Address: [address] [place] [address] Performed By: #### 5 8410-2 ####[facility] LABORATORYCLIA [id number] [place] [address] [place] Platelet mean volume (Bld) [Entitic vol] 9.0 fL Normal 9.0-12.7 [facility] Comment on above: Order Comment: Speci men Type: BLOOD SPECIMENOrdering Facility: [facility] Address: [address] [place] [address] Performed By: #### 5 8410-2 ####[facility] LABORATORYCLIA [id number] [place] [address] [place] Platelets (Bld) [#/Vol] 397 10*3/uL Normal 150-400 [facility] Comment on above: Order Comment: Speci men Type: BLOOD SPECIMENOrdering Facility: [facility] Address: [address] [place] [address] Performed By: #### 5 8410-2 ####[facility] LABORATORYCLIA [id number] [place] [address] [place] RBC (Bld) [#/Vol] 4.45 10*6/uL Normal 3.90-5.20 [facility] Comment on above: Order Comment: Speci men Type: BLOOD SPECIMENOrdering Facility: [facility] Address: [place] [address] Performed By: #### 5 8410-2 ####[facility] LABORATORYCLIA [id number] [address] [id number] [facility] WBC (Bld) [#/Vol] 13.15 10*3/uL High 3.70-11.00 [facility] Comment on above: Order Comment: Speci men Type: BLOOD SPECIMENOrdering Facility: [facility] Address: [place] [address] Performed By: #### 5 8410-2 ####[facility] LABORATORYCLIA [id number] [address] [id number] [facility] CONSULTon 03-03-2023 CONSULT HNO ID: [id number] Author: Cayetano Tai MD Service: Psychiatry Author [...] admitted with intractable vomiting. She is from [place], [place] and was in [place] for a GI appointment and was sent [...] DATE: March 03, 2023 TIME: 3:03 PM [facility] CT ABD/PEL W IVCONon 03-03-[address] ABD/PEL W IVCON * * *Final Report* * * DATE OF EXAM: Mar 03 2023 11:01AM [facility] 0530 - CT ABD/PEL W [...] on Mar 03 2023 11:11AM EST [id number] [facility] NURSING PROGon 03-03-2023 NURSING PROG HNO ID: [id number] Author: Anayeli Blue RN Service: PICC Team [...] 03, 2023 TIME: 10:46 AM PAGER/CONTACT #: [phone] [facility] NURSING PROG HNO ID: [id number] Author: Hilda Dunlap RN Service: ? Author [...] GI to come assess patient at bedside. [facility] ALLIED HEALTHon 03-02-2023 ALLIED HEALTH HNO ID: [id number] Author: Omari Juan RT(Reji) Service: Radiology Author Type: Technologist Type: Allied [...] RT(R) March 02, 2023 5:12 PM Normal [facility] Basic metabolic 2000 panelon 03-02-2023 Anion gap [Moles/Vol] 12 mmol/L Normal 9-18 [facility] Comment on above: Order Comment: Speci men Type: BLOOD SPECIMENOrdering Facility: [facility] Address: [address] [place] [address] Performed By: #### 2 4321-2 ####[facility] LABORATORYCLIA [id number] [place] [address] [place] Calcium [Mass/Vol] 8.9 mg/dL Normal 8.5-10.2 [facility] Comment on above: Order Comment: Speci men Type: BLOOD SPECIMENOrdering Facility: [facility] Address: [address] [place] [address] Performed By: #### 2 4321-2 ####[facility] LABORATORYCLIA [id number] [place] [address] [place] Chloride [Moles/Vol] 102 mmol/L Normal 97-105 [facility] Comment on above: Order Comment: Speci men Type: BLOOD SPECIMENOrdering Facility: [facility] Address: [address] [place] [address] Performed By: #### 2 4321-2 ####[facility] LABORATORYCLIA [id number] [place] [address] [place] CO2 [Moles/Vol] 26 mmol/L Normal 22-30 [facility] Comment on above: Order Comment: Speci men Type: BLOOD SPECIMENOrdering Facility: [facility] Address: [address] [place] [address] Performed By: #### 2 4321-2 ####[facility] LABORATORYCLIA [id number] [place] [address] [place] Creatinine [Mass/Vol] 0.92 mg/dL Normal 0.58-0.96 [facility] Comment on above: Order Comment: Speci men Type: BLOOD SPECIMENOrdering Facility: [facility] Address: [address] [place] [address] Performed By: #### 2 4321-2 ####[facility] LABORATORYCLIA [id number] [place] [address] [place] Creatinine and Glomerular filtration rate.predicted panel (S/P/Bld) 86 mL/min/1.73m??? Normal >=60 [facility] Comment on above: Order Comment: Mahogany vargas Type: BLOOD SPECIMENOrdering Facility: [facility] Address: [address] [place] [address] Result Comment: Samreen mated Glomerular Filtration Rate [...] actual GFR. Performed By: #### 2 4321-2 ####[facility] LABORATORYCLIA [id number] [place] [address] [place] Glucose [Mass/Vol] 162 mg/dL High 74-99 [facility] Comment on above: Order Comment: Mahogany vargas Type: BLOOD SPECIMENOrdering Facility: [facility] Address: [address] [place] [address] Result Comment: The [place] Diabetes Association (ADA) provides guidance for cutoff [...] Standards of Medical Care in Diabetes 2016, [place] [employer]. Diabetes Care. 2016.39(Suppl 1). Performed By: #### 2 4321-2 ####[facility] LABORATORYCLIA [id number] [place] [address] [place] Potassium [Moles/Vol] 3.7 mmol/L Normal 3.7-5.1 [facility] Comment on above: Order Comment: Speci men Type: BLOOD SPECIMENOrdering Facility: [facility] Address: [address] [place] [address] Performed By: #### 2 4321-2 ####[facility] LABORATORYCLIA [id number] [place] [address] [place] Sodium [Moles/Vol] 140 mmol/L Normal 136-144 [facility] Comment on above: Order Comment: Speci men Type: BLOOD SPECIMENOrdering Facility: [facility] Address: [address] [place] [address] Performed By: #### 2 4321-2 ####[facility] LABORATORYCLIA [id number] [place] [address] [place] Urea nitrogen [Mass/Vol] 8 mg/dL Normal 7-21 [facility] Comment on above: Order Comment: Speci men Type: BLOOD SPECIMENOrdering Facility: [facility] Address: [address] [place] [address] Performed By: #### 2 4321-2 ####[facility] LABORATORYCLIA [id number] [place] [address] [place] CBC panel Auto (Bld)on 03-02 Erythrocyte distribution width (RBC) [Ratio] 13.4 % Normal 11.5-15.0 [facility] Comment on above: Order Comment: Speci men Type: BLOOD SPECIMENOrdering Facility: [facility] Address: [address] [place] [address] Performed By: #### 5 8410-2 ####[facility] LABORATORYCLIA [id number] [place] [address] [place] Hematocrit (Bld) [Volume fraction] 34.1 % Low 36.0-46.0 [facility] Comment on above: Order Comment: Speci men Type: BLOOD SPECIMENOrdering Facility: [facility] Address: [address] [place] [address] Performed By: #### 5 8410-2 ####[facility] LABORATORYCLIA [id number] [place] [address] [place] Hemoglobin (Bld) [Mass/Vol] 11.3 g/dL Low 11.5-15.5 [facility] Comment on above: Order Comment: Speci men Type: BLOOD SPECIMENOrdering Facility: [facility] Address: [address] [place] [address] Performed By: #### 5 8410-2 ####[facility] LABORATORYCLIA [id number] [place] [address] [place] MCH (RBC) [Entitic mass] 27.2 pg Normal 26.0-34.0 [facility] Comment on above: Order Comment: Speci men Type: BLOOD SPECIMENOrdering Facility: [facility] Address: [address] [place] [address] Performed By: #### 5 8410-2 ####[facility] LABORATORYCLIA [id number] [address] [place] MCHC (RBC) [Mass/Vol] 33.1 g/dL Normal 30.5-36.0 [facility] Comment on above: Order Comment: Speci men Type: BLOOD SPECIMENOrdering Facility: [facility] Address: [address] [place] [address] Performed By: #### 5 8410-2 ####[facility] LABORATORYCLIA [id number] [address] [place] MCV (RBC) [Entitic vol] 82.2 fL Normal 80.0-100.0 [facility] Comment on above: Order Comment: Speci men Type: BLOOD SPECIMENOrdering Facility: [facility] Address: [address] [place] [address] Performed By: #### 5 8410-2 ####[facility] LABORATORYCLIA [id number] [place] [address] [place] Nucleated RBC (Bld) [#/Vol] 10*3/uL Normal <0.01 [facility] Comment on above: Order Comment: Speci men Type: BLOOD SPECIMENOrdering Facility: [facility] Address: [address] [place] [address] Performed By: #### 5 8410-2 ####[facility] LABORATORYCLIA [id number] [place] [address] [place] Platelet mean volume (Bld) [Entitic vol] 9.4 fL Normal 9.0-12.7 [facility] Comment on above: Order Comment: Speci men Type: BLOOD SPECIMENOrdering Facility: [facility] Address: [address] [place] [address] Performed By: #### 5 8410-2 ####[facility] LABORATORYCLIA [id number] [place] [address] [place] Platelets (Bld) [#/Vol] 374 10*3/uL Normal 150-400 [facility] Comment on above: Order Comment: Speci men Type: BLOOD SPECIMENOrdering Facility: [facility] Address: [address] [place] [address] Performed By: #### 5 8410-2 ####[facility] LABORATORYCLIA [id number] [place] [address] [place] RBC (Bld) [#/Vol] 4.15 10*6/uL Normal 3.90-5.20 [facility] Comment on above: Order Comment: Speci men Type: BLOOD SPECIMENOrdering Facility: [facility] Address: [address] [place] [address] Performed By: #### 5 8410-2 ####[facility] LABORATORYCLIA [id number] [place] [address] [place] WBC (Bld) [#/Vol] 9.29 10*3/uL Normal 3.70-11.00 [facility] Comment on above: Order Comment: Speci men Type: BLOOD SPECIMENOrdering Facility: [facility] Address: [address], [place] [address] Performed By: #### 5 8410-2 ####[facility]ORY[facility] [id number] [place] [id number] [facility] Neha 03-02-2023 CNPN Telephone (SPPRAD) GHISLAINE GIVENS ([id number]) 1990 F UPA Date Time Provider Department [...] Date Reviewed: 03/02/2023 Reviewed by: Ghislaine Mancilla, RN - Fully Assessed Reason for Visit: Appointment [186] Primary Visit Diagnosis:Nausea [R11.0] Order(s):NM GASTRIC EMPTYING SOLID [[id number]] Order #: [id number] FUTURE Prescriptions as of 01/31/2024 - acetaminophen [...] type 2) (HCC) [E11.9] 03/16/2013 Elevated BP [YXY5140] 04/28/2013 11/27/2013 HLD (hyperlipidemia) [E78.5] 11/27/2013 Tobacco use disorder [F17.200] 11/27/2013 Obesity, Class I, BMI 30-34.9 [E66.9] 02/18/2023 Intractable nausea and vomiting [R11.2] 02/18/2023 Severe protein-calorie malnutrition (HCC) [E43] 02/19/2023 Abdominal pain [R10.9] 03/01/2023 Constipation [K59.00] 03/02/2023 Anxiety and depression [F41.9, F32.A] 03/02/2023 Borderline personality disorder (HCC) [F60.3] 03/02/2023 Encounter Status:Closed by ALMITA KELLY on 01/31/24 [facility] CONSULTon 03-02-2023 CONSULT HNO ID: [id number] Author: Gen Bradford MD Service: Gastroenterology Author Type: Physician Type: Consults Filed: 03/02/2023 5:20 PM Note Text: [facility] [place] PHYSIC[facility] NOTE OF PERSONAL INVOLVEMENT IN [...] 02, 2023 Patient: Ghislaine Givens Medical Record: [id number] Reason for Consult: Abdominal pain, vomiting Requesting [...] mild gastritis and an esophageal ulcer at [facility]. She was escorted down from Dr. Doran's [...] as directed. Patient (more content not included)... Normal [facility] HISTORY PHYSICALon HISTORY PHYSICAL HNO ID: [id number] Author: Kelley Lopez MD Service: ? Author [...] office evaluation. She was not evaluated by spool cleaner hand. Vomiting too frequent to count and constant [...] was prescribed stool softeners and laxatives during [facility] stay however she refuses to take them [...] twice daily bef (more content not included)... [facility] XR ABDOMEN 1V SUPINEon 03-02 XR [...] Mar 02 2023 5:24PM EST [id number] Normal [facility] CBC W Auto Differential pane l (Bld)on 03-01-2023 Basophils (Bld) [#/Vol] 0.04 10*3/uL Normal <0.11 [facility] Comment on above: Order Comment: Speci men Type: BLOOD SPECIMENOrdering Facility: [facility] Address: [address] [address] Performed By: #### 5 7021-8 ####[facility] LABORATORYCLIA [id number] [place] [address] [place] Basophils/100 WBC (Bld) 0.3 % Normal [facility] Comment on above: Order Comment: Speci men Type: BLOOD SPECIMENOrdering Facility: [facility] Address: [address] [place] [address] Performed By: #### 5 7021-8 ####[facility] LABORATORYCLIA [id number] [place] [address] [place] Differential cell count method Nom (Bld) Auto Normal [facility] Comment on above: Order Comment: Speci men Type: BLOOD SPECIMENOrdering Facility: [facility] Address: [address] [address] Performed By: #### 5 7021-8 ####[facility] LABORATORYCLIA [id number] [place] [address] [place] Eosinophils (Bld) [#/Vol] 0.03 10*3/uL Normal <0.46 [facility] Comment on above: Order Comment: Speci men Type: BLOOD SPECIMENOrdering Facility: [facility] Address: [address] [address] Performed By: #### 5 7021-8 ####[facility] LABORATORYCLIA [id number] [place] [address] [place] Eosinophils/100 WBC (Bld) 0.2 % Normal [facility] Comment on above: Order Comment: Speci men Type: BLOOD SPECIMENOrdering Facility: [facility] Address: [address] [place] [address] Performed By: #### 5 7021-8 ####[facility] LABORATORYCLIA [id number] [place] [address] [place] Erythrocyte distribution width (RBC) [Ratio] 13.6 % Normal 11.5-15.0 [facility] Comment on above: Order Comment: Speci men Type: BLOOD SPECIMENOrdering Facility: [facility] Address: [address] [place] [address] Performed By: #### 5 7021-8 ####[facility] LABORATORYCLIA [id number] [place] [address] [place] Hematocrit (Bld) [Volume fraction] 41.4 % Normal 36.0-46.0 [facility] Comment on above: Order Comment: Speci men Type: BLOOD SPECIMENOrdering Facility: [facility] Address: [address] [address] Performed By: #### 5 7021-8 ####[facility] LABORATORYCLIA [id number] [place] [address] [place] Hemoglobin (Bld) [Mass/Vol] 13.6 g/dL Normal 11.5-15.5 [facility] Comment on above: Order Comment: Speci men Type: BLOOD SPECIMENOrdering Facility: [facility] Address: [address] [place] [address] Performed By: #### 5 7021-8 ####[facility] LABORATORYCLIA [id number] [place] [address] [place] Immature granulocytes (Bld) [#/Vol] 0.08 10*3/uL Normal <0.10 [facility] Comment on above: Order Comment: Speci men Type: BLOOD SPECIMENOrdering Facility: [facility] Address: [address] [place] [address] Performed By: #### 5 7021-8 ####[facility] LABORATORYCLIA [id number] [place] [address] [place] Immature granulocytes/100 WBC (Bld) 0.6 % Normal [facility] Comment on above: Order Comment: Speci men Type: BLOOD SPECIMENOrdering Facility: [facility] Address: [address] [place] [address] Performed By: #### 5 7021-8 ####[facility] LABORATORYCLIA [id number] [place] [address] [place] Lymphocytes (Bld) [#/Vol] 3.86 10*3/uL Normal 1.00-4.00 [facility] Comment on above: Order Comment: Speci men Type: BLOOD SPECIMENOrdering Facility: [facility] Address: [address] [place] [address] Performed By: #### 5 7021-8 ####[facility] LABORATORYCLIA [id number] [place] [address] [place] Lymphocytes/100 WBC (Bld) 28.3 % Normal [facility] Comment on above: Order Comment: Speci men Type: BLOOD SPECIMENOrdering Facility: [facility] Address: [address] [place] [address] Performed By: #### 5 7021-8 ####[facility] LABORATORYCLIA [id number] [place] [address] [place] MCH (RBC) [Entitic mass] 26.8 pg Normal 26.0-34.0 [facility] Comment on above: Order Comment: Speci men Type: BLOOD SPECIMENOrdering Facility: [facility] Address: [address] [place] [address] Performed By: #### 5 7021-8 ####[facility] LABORATORYCLIA [id number] [place] [address] [place] MCHC (RBC) [Mass/Vol] 32.9 g/dL Normal 30.5-36.0 [facility] Comment on above: Order Comment: Speci men Type: BLOOD SPECIMENOrdering Facility: [facility] Address: [address] [place] [address] Performed By: #### 5 7021-8 ####[facility] LABORATORYCLIA [id number] [place] [address] [place] MCV (RBC) [Entitic vol] 81.7 fL Normal 80.0-100.0 [facility] Comment on above: Order Comment: Speci men Type: BLOOD SPECIMENOrdering Facility: [facility] Address: [address] [place] [address] Performed By: #### 5 7021-8 ####[facility] LABORATORYCLIA [id number] [place] [address] [place] Monocytes (Bld) [#/Vol] 0.80 10*3/uL Normal <0.87 [facility] Comment on above: Order Comment: Speci men Type: BLOOD SPECIMENOrdering Facility: [facility] Address: [address] [place] [address] Performed By: #### 5 7021-8 ####[facility] LABORATORYCLIA [id number] [address] [place] Monocytes/100 WBC (Bld) 5.9 % Normal [facility] Comment on above: Order Comment: Speci men Type: BLOOD SPECIMENOrdering Facility: [facility] Address: [address] [place] [address] Performed By: #### 5 7021-8 ####[facility] LABORATORYCLIA [id number] [place] [address] [place] Neutrophils (Bld) [#/Vol] 8.85 10*3/uL High 1.45-7.50 [facility] Comment on above: Order Comment: Speci men Type: BLOOD SPECIMENOrdering Facility: [facility] Address: [address] [place] [address] Performed By: #### 5 7021-8 ####[facility] LABORATORYCLIA [id number] [place] [address] [place] Neutrophils/100 WBC (Bld) 64.7 % Normal [facility] Comment on above: Order Comment: Speci men Type: BLOOD SPECIMENOrdering Facility: [facility] Address: [address] [place] [address] Performed By: #### 5 7021-8 ####[facility] LABORATORYCLIA [id number] [place] [address] [place] Nucleated RBC (Bld) [#/Vol] 10*3/uL Normal <0.01 [facility] Comment on above: Order Comment: Speci men Type: BLOOD SPECIMENOrdering Facility: [facility] Address: [address] [place] [address] Performed By: #### 5 7021-8 ####[facility] LABORATORYCLIA [id number] [place] [address] [place] Nucleated RBC/100 WBC (Bld) [Ratio] 0.0 /100 WBC Normal [facility] Comment on above: Order Comment: Speci men Type: BLOOD SPECIMENOrdering Facility: [facility] Address: [address] [place] [address] Performed By: #### 5 7021-8 ####[facility] LABORATORYCLIA [id number] [place] [address] [place] Platelet mean volume (Bld) [Entitic vol] 9.3 fL Normal 9.0-12.7 [facility] Comment on above: Order Comment: Speci men Type: BLOOD SPECIMENOrdering Facility: [facility] Address: [address] [place] [address] Performed By: #### 5 7021-8 ####[facility] LABORATORYCLIA [id number] [place] [address] [place] Platelets (Bld) [#/Vol] 495 10*3/uL High 150-400 [facility] Comment on above: Order Comment: Speci men Type: BLOOD SPECIMENOrdering Facility: [facility] Address: [address] [place] [address] Performed By: #### 5 7021-8 ####[facility] LABORATORYCLIA [id number] [place] [address] [facility] [place] RBC (Bld) [#/Vol] 5.07 10*6/uL Normal 3.90-5.20 [facility] Comment on above: Order Comment: Speci men Type: BLOOD SPECIMENOrdering Facility: [facility] Address: [address] [place] [address] Performed By: #### 5 7021-8 ####[facility]ITALCL[facility] [id number] [place] [address] [place] [facility] WBC (Bld) [#/Vol] 13.66 10*3/uL High 3.70-11.00 [facility] Comment on above: Order Comment: Speci men Type: BLOOD SPECIMENOrdering Facility: [facility] Address: [address] [place] [address] Performed By: #### 5 7021-8 ####[facility] LABORATORYCLIA [id number] [address] [place] Comprehensive metabolic 2000 panelon 03-01-2023 Albumin [Mass/Vol] 4.1 g/dL Normal 3.9-4.9 [facility] Comment on above: Order Comment: Speci men Type: BLOOD SPECIMENOrdering Facility: [facility] Address: [address] [place] [address] Performed By: #### [place], [address]-0, 3040-3, 88240-4 ####[facility] LABORATORYCLIA [id number] [place] [address] [place] ALP [Catalytic activity/Vol] 102 U/L Normal 34-123 [facility] Comment on above: Order Comment: Speci men Type: BLOOD SPECIMENOrdering Facility: [facility] Address: [address] [place] [address] Performed By: #### [place], 11241-9, 3040-3, 23908-3 ####[facility] LABORATORYCLIA [id number] [place] [address] [place] ALT [Catalytic activity/Vol] 10 U/L Normal 7-38 [facility] Comment on above: Order Comment: Speci men Type: BLOOD SPECIMENOrdering Facility: [facility] Address: [address] [place] [address] Performed By: #### B HB, , 3040-3, 45275-0 ####[facility] LABORATORYCLIA [id number] [address] [place] Anion gap [Moles/Vol] 15 mmol/L Normal 9-18 [facility] Comment on above: Order Comment: Speci men Type: BLOOD SPECIMENOrdering Facility: [facility] Address: [address] [place] [address] Performed By: #### B HB, , 3040-3, 48461-9 ####[facility] LABORATORYCLIA [id number] [place] [address] [place] AST [Catalytic activity/Vol] 12 U/L Low 13-35 [facility] Comment on above: Order Comment: Speci men Type: BLOOD SPECIMENOrdering Facility: [facility] Address: [address] [place] [address] Performed By: #### B [place], 62456-5, 3040-3, 78488-9 ####[facility] LABORATORYCLIA [id number] [place] [address] [place] Bilirubin [Mass/Vol] 0.4 mg/dL Normal 0.2-1.3 [facility] Comment on above: Order Comment: Speci men Type: BLOOD SPECIMENOrdering Facility: [facility] Address: [address] [place] [address] Performed By: #### [place], [address]-5, 3039-3, 87153-5 ####[facility] LABORATORYCLIA [id number] [place] [id number] [place] Calcium [Mass/Vol] 9.8 mg/dL Normal 8.5-10.2 [facility] Comment on above: Order Comment: Speci men Type: BLOOD SPECIMENOrdering Facility: [facility] Address: [address] [place] [address] Performed By: #### Tarik HB, , 3039-3, 13565-3 ####[facility] LABORATORYCLIA [id number] [place] [id number] [place] Chloride [Moles/Vol] 95 mmol/L Low 97-105 [facility] Comment on above: Order Comment: Speci men Type: BLOOD SPECIMENOrdering Facility: [facility] Address: [address] [place] [address] Performed By: #### Tarik HB, , 3039-3, 00852-3 ####[facility] LABORATORYCLIA [id number] [place] [id number] [place] CO2 [Moles/Vol] 23 mmol/L Normal 22-30 [facility] Comment on above: Order Comment: Speci men Type: BLOOD SPECIMENOrdering Facility: [facility] Address: [address] [place] [address] Performed By: #### B HB, , 0-3, 63542-3 ####[facility] LABORATORYCLIA [id number] [place] [id number] [place] Creatinine [Mass/Vol] 1.02 mg/dL High 0.58-0.96 [facility] Comment on above: Order Comment: Speci men Type: BLOOD SPECIMENOrdering Facility: [facility] Address: [address] [place] [address] Performed By: #### B HB, 26833-4, 0-3, 34277-0 ####[facility] LABORATORYCLIA [id number] [place] [id number] [place] Creatinine and Glomerular filtration rate.predicted panel (S/P/Bld) 76 mL/min/1.73m??? Normal >=60 [facility] Comment on above: Order Comment: Mahogany vargas Type: BLOOD SPECIMENOrdering Facility: [facility] Address: [address] [place], [place] [address] Result Comment: Samreen mated Glomerular Filtration Rate [...] actual GFR. Performed By: #### B HB, 07485-0, 3039-3, 68189-5 ####[facility] LABORATORYCLIA [id number] [place] [address] [place] Glucose [Mass/Vol] 258 mg/dL High 74-99 [facility] Comment on above: Order Comment: Mahogany vargas Type: BLOOD SPECIMENOrdering Facility: [facility] Address: [address] [place] [address] Result Comment: The [place] Diabetes Association (ADA) provides guidance for cutoff [...] Standards of Medical Care in Diabetes 2016, [place] [employer]. Diabetes Care. 2016.39(Suppl 1). Performed By: #### B HB, , 3040-3, 71978-4 ####[facility] LABORATORYCLIA [id number] [place] [id number] [place] Potassium [Moles/Vol] 3.5 mmol/L Low 3.7-5.1 [facility] Comment on above: Order Comment: Speci men Type: BLOOD SPECIMENOrdering Facility: [facility] Address: [address] [address] Performed By: #### B HB, , 3039-3, 20376-4 ####[facility] LABORATORYCLIA [id number] [place] [address] [place] Protein [Mass/Vol] 8.5 g/dL High 6.3-8.0 [facility] Comment on above: Order Comment: Speci men Type: BLOOD SPECIMENOrdering Facility: [facility] Address: [address] [place] [address] Performed By: #### B HB, , 3, 03680-2 ####[facility] LABORATORYCLIA [id number] [place] [address] [place] Sodium [Moles/Vol] 133 mmol/L Low 136-144 [facility] Comment on above: Order Comment: Speci men Type: BLOOD SPECIMENOrdering Facility: [facility] Address: [address] [place] [address] Performed By: #### B HB, , 3, 93482-2 ####[facility] LABORATORYCLIA [id number] [place] [id number] [place] Urea nitrogen [Mass/Vol] 11 mg/dL Normal 7-21 [facility] Comment on above: Order Comment: Speci men Type: BLOOD SPECIMENOrdering Facility: [facility] Address: [address] [address] Performed By: #### B HB, , 3039-3, 03887-5 ####[facility] LABORATORYCLIA [id number] [place] [id number] [place] ECG COMPLETEon 03-01-2023 ECG COMPLETE Ventricular Rate : 8 3 BPM Atrial Rate : 83 BPM P-R Interval : 126 ms QRS Duration : 90 ms Q-T Interval : 358 ms QTC Calculation(Bazett) : 420 ms Calculated P Casey : 5 degrees Calculated R Casey : 1 degrees Calculated T Casey : 13 degrees NORMAL SINUS RHYTHM MINIMAL VOLTAGE CRITERIA FOR LVH, MAY BE NORMAL VARIANT ( R in aVL ) NONSPECIFIC T WAVE ABNORMALITY ABNORMAL ECG NO PREVIOUS ECGS AVAILABLE Confirmed by ARABELLA SARMIENTO DO (), staff editor NORMAN GARVEY ([id number]) on 03/02/2023 7:20:55 AM NAME : GHISLAINE GIVENS PID : [id number] : 1990 Gender : Female Race : ORD : [id number] Procedure Date : Mar 01 2023 11:58:01 Edit Date : Mar 02 2023 07:20:56 Diagnosis: NORMAL SINUS RHYTHM MINIMAL VOLTAGE CRITERIA FOR LVH, MAY BE NORMAL VARIANT ( R in aVL ) NONSPECIFIC T WAVE ABNORMALITY ABNORMAL ECG NO PREVIOUS ECGS AVAILABLE Confirmed by ARABELLA SARMIENTO DO (), staff editor NORMAN GARVEY ([id number]) on 03/02/2023 7:20:55 AM Test Reason : Chest Pain Location : 1 : 1 ED Overread By : ARABELLA SARMIENTO DO Edited By : NORMAN GARVEY Referred By : , Acquired by : , [facility] ED NOTEon 03-01-2023 ED NOTE HNO ID: [id number] Author: Gayathri Bruno RN Service: ? Author Type: Registered Nurse Type: ED Notes Filed: 03/01/2023 5:12 PM Note Text: NG tube removed without complications. [facility] ED NOTE HNO ID: [id number] Author: Luzma Sen RN Service: Emergency Medicine Author Type: Registered Nurse Type: ED Notes Filed: 03/01/2023 5:05 PM Note Text: Patient crying and yelling in room to take out her NG tube. Provider aware. [facility] ED NOTE HNO ID: [id number] Author: Dewayne Gallagher RN Service: ? Author Type: Registered Nurse Type: ED Notes Filed: 03/01/2023 11:20 AM Note Text: Pt has longstanding pmh abd pain with n/v, had upper gi scope done at [facility] 02/19/23 that showed mild gastritis. Pt was in [facility] office for first visit, escorted down here by nursing staff. Pt denies diarrhea, sts too many episodes of vomiting to count, sts maybe a little when asked about hematemesis. Pt sts she hasnt smoked thc in 3 mos since all this started, sts ongoing issue for past 3 mos. [facility] ED PROV NOTEon 03-01-2023 ED PROV NOTE HNO ID: [id number] Author: Arabella Sarmiento DO Service: Emergency Medicine [...] office evaluation. She was not evaluated by spool cleaner hand. Vomiting too frequent to count and constant [...] was prescribed stool softeners and laxatives during [facility] stay however she refuses to take them because she feels they worsen abdominal pain. She was also prescribed narcotic pain medication for home which she states she has been taking. 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 Normal [facility] KETONES/ACETONE/BHBon 2022 Beta hydroxybutyrate [Moles/Vol] 0.70 mmol/L High <0.28 [facility] Comment on above: Order Comment: Speci men Type: BLOOD SPECIMENOrdering Facility: [facility] Address: [address] [place] [address] Performed By: #### B HB, , 3040-3, 45748-2 ####[facility] LABORATORYCLIA [id number] [place] [address] [place] Lipase SerPl-cCncon 03-01-20 Lipase [Catalytic activity/Vol] 57 U/L Normal 16-61 [facility] Comment on above: Order Comment: Speci men Type: BLOOD SPECIMENOrdering Facility: [facility] Address: [address] [place] [address] Performed By: #### B HB, 69054-8, 3040-3, 99668-5 ####[facility] LABORATORYCLIA [id number] [place] [id number] [place] Magnesium SerPl-mCncon 03-01 Magnesium [Mass/Vol] 1.7 mg/dL Normal 1.7-2.3 [facility] Comment on above: Order Comment: Speci men Type: BLOOD SPECIMENOrdering Facility: [facility] Address: [address] [place] [address] Performed By: #### B HB, 29505-7, 3040-3, 05296-4 ####[facility] LABORATORYCLIA [id number] [place] [address] [place] TOX SCREEN ROUT URon 023 Amphetamines Confirm (U) [Mass/Vol] Negative Normal Negative [facility] Comment on above: Order Comment: Speci men Type: URINE SPECIMENOrdering Facility: [facility] Address: [address] [place] [address] Result Comment: Cuto ff threshold at 1000 ng/mL. Performed By: #### U TOX2 ####[facility] LABORATORYCLIA [id number] [place] [address] [place] BARBITURATES, URINE Negative Normal Negative [facility] Comment on above: Order Comment: Speci men Type: URINE SPECIMENOrdering Facility: [facility] Address: [address] [place] [address] Result Comment: Cuto ff threshold at 200 ng/mL. Performed By: #### U TOX2 ####[facility] LABORATORYCLIA [id number] [place] [address] [place] BENZODIAZEPINES, UR Negative Normal Negative [facility] Comment on above: Order Comment: Speci men Type: URINE SPECIMENOrdering Facility: [facility] Address: [address] [place] [address] Result Comment: Cuto ff threshold at 200 ng/mL. Performed By: #### U TOX2 ####[facility] LABORATORYCLIA [id number] [place] [address] [place] Cannabinoids Screen Ql (U) Negative Normal Negative [facility] Comment on above: Order Comment: Speci men Type: URINE SPECIMENOrdering Facility: [facility] Address: [address] [place] [address] Result Comment: Cuto ff threshold at 50 ng/mL. Performed By: #### U TOX2 ####[facility] LABORATORYCLIA [id number] [place] [address] [place] Cocaine Ql (U) Negative Normal Negative [facility] Comment on above: Order Comment: Speci men Type: URINE SPECIMENOrdering Facility: [facility] Address: [address] [place] [address] Result Comment: Cuto ff threshold at 300 ng/mL. Performed By: #### U TOX2 ####[facility] LABORATORYCLIA [id number] [place] [address] [place] Ethanol (U) [Mass/Vol] <11 Normal <11 So [facility] Comment on above: Order Comment: Speci men Type: URINE SPECIMENOrdering Facility: [facility] Address: [address] [place] [address] Performed By: #### U TOX2 ####[facility] LABORATORYCLIA [id number] [place] [address] [place] Opiates Screen Ql (U) Positive Abnormal Negative [facility] Comment on above: Order Comment: Speci men Type: URINE SPECIMENOrdering Facility: [facility] Address: [address] [place] [address] Result Comment: Cuto ff threshold at 300 ng/mL. Performed By: #### U TOX2 ####[facility] LABORATORYCLIA [id number] [address] [place] oxyCODONE cutoff Screen (U) [Mass/Vol] Negative Normal Negative [facility] Comment on above: Order Comment: Speci men Type: URINE SPECIMENOrdering Facility: [facility] Address: [address] [place] [address] Result Comment: Cuto ff threshold at 100 ng/mL. Performed By: #### U TOX2 ####[facility] LABORATORYCLIA [id number] [place] [address] [place] Phencyclidine Ql (U) Negative Normal Negative [facility] Comment on above: Order Comment: Speci men Type: URINE SPECIMENOrdering Facility: [facility] Address: [address] [place] [address] Result Comment: Cuto ff threshold at 25 ng/mL. Performed By: #### U TOX2 ####[facility]ORATORYCLIA [id number] [place] [address] [place] Urinalysis complete panel (U )on 03-01-2023 Bacteria LM.HPF (Urine sed) [#/Area] Moderate Abnormal None Seen [facility] Comment on above: Order Comment: Speci men Type: URINE SPECIMENOrdering Facility: [facility] Address: [address] [place] [address] Performed By: #### 2 4356-8 ####[facility] LABORATORYCLIA [id number] [place] [address] [place] Bilirubin Ql (U) 1+ Abnormal Negative [facility] Comment on above: Order Comment: Speci men Type: URINE SPECIMENOrdering Facility: [facility] Address: [address] [place] [address] Result Comment: Sugg est correlation with clinical findings and serum bilirubin if clinically indicated. Performed By: #### 2 4356-8 ####[facility]ENTERIA [id number] [place] [address] [place] Clarity (Unsp spec) Cloudy Abnormal Clear [facility] Comment on above: Order Comment: Speci men Type: URINE SPECIMENOrdering Facility: [facility] Address: [address] [place] [address] Performed By: #### 2 4356-8 ####[facility]ITALCL[facility] [id number] [place] [address] [place] Color (U) Yellow Normal Yellow [facility] Comment on above: Order Comment: Speci men Type: URINE SPECIMENOrdering Facility: [facility] Address: [address] [place] [address] Performed By: #### 2 4356-8 ####[facility] LABORATORYCLIA [id number] [place] [address] [place] Epithelial cells LM.HPF (Urine sed) [#/Area] Many Normal [facility] Comment on above: Order Comment: Speci men Type: URINE SPECIMENOrdering Facility: [facility] Address: [address] [address] Result Comment: Few Performed By: #### 2 4356-8 ####[facility] LABORATORYCLIA [id number] [place] [address] [place] Glucose Test strip (U) [Mass/Vol] Trace Abnormal Negative [facility] Comment on above: Order Comment: Speci men Type: URINE SPECIMENOrdering Facility: [facility] Address: [address] [place] [address] Performed By: #### 2 4356-8 ####[facility] LABORATORYCLIA [id number] [place] [address] [place] Hemoglobin Ql (U) Negative Normal Negative, Trace [facility] Comment on above: Order Comment: Speci men Type: URINE SPECIMENOrdering Facility: [facility] Address: [address] [place] [address] Performed By: #### 2 4356-8 ####[facility] LABORATORYCLIA [id number] [place] [address] [place] Hyaline casts (Urine sed) [#/Area] 1-3 /LPF Abnormal 0 /LPF [facility] Comment on above: Order Comment: Speci men Type: URINE SPECIMENOrdering Facility: [facility] Address: [address] [place] [address] Performed By: #### 2 4356-8 ####[facility] LABORATORYCLIA [id number] [place] [address] [place] Ketones Ql (U) Trace Abnormal Negative [facility] Comment on above: Order Comment: Speci men Type: URINE SPECIMENOrdering Facility: [facility] Address: [address] [place] [address] Performed By: #### 2 4356-8 ####[facility]ORATORYCLIA [id number] [address] [place] Leukocyte esterase Test strip Ql (U) Negative Normal Negative [facility] Comment on above: Order Comment: Speci men Type: URINE SPECIMENOrdering Facility: [facility] Address: [address] [address] Performed By: #### 2 4356-8 ####[facility] LABORATORYCLIA [id number] [place] [address] [place] Nitrite Ql (U) Negative Normal Negative [facility] Comment on above: Order Comment: Speci men Type: URINE SPECIMENOrdering Facility: [facility] Address: [address] [place] [address] Performed By: #### 2 4356-8 ####[facility]ITALCLIA [id number] [place] [address] [place] pH (U) 5.5 [pH] Normal 5.0-8.0 [facility] Comment on above: Order Comment: Speci men Type: URINE SPECIMENOrdering Facility: [facility] Address: [address] [place] [address] Performed By: #### 2 4356-8 ####[facility] CENTERIA [id number] [place] [address] [place] Protein (U) [Mass/Vol] 2+ Abnormal Negative So [facility] Comment on above: Order Comment: Speci men Type: URINE SPECIMENOrdering Facility: [facility] Address: [address] [place] [address] Performed By: #### 2 4356-8 ####[facility] MED[facility] CENTERIA [id number] [place] [address] [place] RBC LM.HPF (Urine sed) [#/Area] 0-3 /HPF Normal 0-3 /HPF [facility] Comment on above: Order Comment: Speci men Type: URINE SPECIMENOrdering Facility: [facility] Address: [address] [place] [address] Performed By: #### 2 4356-8 ####[facility]ITALCLIA [id number] [place] [address] [place] Specific gravity (U) [Rel density] >=1.030 High 1.005-1.030 [facility] Comment on above: Order Comment: Speci men Type: URINE SPECIMENOrdering Facility: [facility] Address: [address] [place] [address] Performed By: #### 2 4356-8 ####[facility] LABORATORYCLIA [id number] [place] [address] [place] Urobilinogen Ql (U) 1.0 EU/dL Normal 0.2-1.0 EU/dL [facility] Comment on above: Order Comment: Speci men Type: URINE SPECIMENOrdering Facility: [facility] Address: [address] [place] [address] Performed By: #### 2 4356-8 ####[facility] LABORATORYCLIA [id number] [place] [address] [place] WBC LM.HPF (Urine sed) [#/Area] 0-5 /HPF Normal 0-5 /HPF [facility] Comment on above: Order Comment: Speci men Type: URINE SPECIMENOrdering Facility: [facility] Address: [address] [place] [address] Performed By: #### 2 4356-8 ####[facility] LABORATORYCLIA [id number] [address] [place] Absolute lymphocyte countOrd ered By: Perico Norman on 02-26-2023 Lymphocytes Auto (Unsp spec) [#/Vol] 2.45 10*3/uL 0.83-4.51 [facility] Basophil percentageOrdered B y: Perico Norman on 02-26-2023 Basophil percentage 0-5 SEEN /hpf 0-5 [facility] Basophil percentage 271 mg/dL 74-106 [facility] Basophil percentage 9.3 g/dL 6.4-8.2 [facility] Basophil percentage 0.80 mg/dL 0.20-1.00 [facility] Basophil percentage 131 mmol/L 136-145 [facility] Basophil percentage 3.4 mmol/L 3.5-5.1 [facility] Basophil percentage 98 mmol/L 98-107 [facility] Basophils (Bld) [#/Vol] 16.2 10*3/uL 4.4-11.0 [facility] Basophils (Bld) [#/Vol] 12.3 10*3/uL 2.0-7.7 [facility] Basophils/100 WBC (Bld) 75.8 % 47-70 [facility] Basophils/100 WBC (Bld) 0.1 % 0-5 [facility] Basophils/100 WBC (Bld) 0.4 % 0-1 [facility] Bilirubin [Mass/Vol] 0.80 mg/dL 0.20-1.00 [facility] Comment on above: For patients on eltr ombopag therapy, use of [employer] [place] TBIL is not recommended. Chloride [Moles/Vol] 98 mmol/L 98-107 [facility] Eosinophils/100 WBC (Bld) 0.1 % 0-5 [facility] Glucose [Mass/Vol] 271 mg/dL 74-106 [facility] Comment on above: Glucose result great er than or equal to 200 mg/dLsuggests DIABETES MELLITUS per A.D.A. criteria. Neutrophils (Bld) [#/Vol] 12.3 10*3/uL 2.0-7.7 [facility] Neutrophils/100 WBC (Bld) 75.8 % 47-70 [facility] Potassium [Moles/Vol] 3.4 mmol/L 3.5-5.1 [facility] Protein [Mass/Vol] 9.3 g/dL 6.4-8.2 [facility] Sodium [Moles/Vol] 131 mmol/L 136-145 [facility] WBC (Bld) [#/Vol] 16.2 10*3/uL 4.4-11.0 [facility] Beta hCG serum qualOrdered B y: Perico Norman on 02-26-2023 Beta HCG ( test) Ql Negative [facility] Bilirubin Test strip Ql (U)O rdered By: Perico Norman on 02-26-2023 Bilirubin Ql (U) Negative Negative [facility] Blood erythrocytes count (nu mber/volume)Ordered By: Perico Norman on 02-26-2023 RBC (Bld) [#/Vol] 4.97 10*6/uL 4.2-5.4 [facility] Blood hemoglobin measurement (mass/volume)Ordered By: Perico Norman on 02-26-2023 Hemoglobin (Bld) [Mass/Vol] 13.3 g/dL 12.0-15.0 [facility] Blood lymphocytes/100 leukoc ytesOrdered By: Perico Norman on 02-26-2023 Lymphocytes/100 WBC (Bld) 15.1 % 19-41 [facility] Blood monocytes/100 leukocyt esOrdered By: Perico Norman on 02-26-2023 Monocytes/100 WBC (Bld) 8.0 % 0-10 [facility] Blood platelet mean volumeOr dered By: Perico Norman on 02-26-2023 Platelet mean volume (Bld) [Entitic vol] 9.1 fL 6.2-12.0 [facility] Determination of erythrocyte mean corpuscular volume (MCV)Ordered By: Perico Norman on 02-26-2023 MCV (RBC) [Entitic vol] 80.9 fL 81-99 [facility] Direct bilirubinOrdered By: Perico Norman on 02-26-2023 Bilirubin.direct [Mass/Vol] 0.22 mg/dL 0.00-0.30 [facility] Hematocrit Auto (Bld) [Volum e fraction]Ordered By: Perico Norman on 02-26-2023 Hematocrit (Bld) [Volume fraction] 40.2 % 37-47 [facility] Ketones Test strip Ql (U)Ord ered By: Perico Norman on 02-26-2023 Ketones Ql (U) 15 mg/dl Negative [facility] Laboratory - Chemistry and C hemistry - challengeOrdered By: Perico Norman on 02-26-2023 ALP [Catalytic activity/Vol] 108 U/L 45-117 [facility] ALT [Catalytic activity/Vol] 17 U/L -56 [facility] CO2 [Moles/Vol] 22.0 mmol/L 21.0-32.0 [facility] Globulin (S) [Mass/Vol] 5.7 g/dL 2.2-4.2 [facility] Lipase [Catalytic activity/Vol] 64 U/L [facility] Comment on above: Please note:LIPASE r evised reference range effective 22. New Lipase methodology. Expected to produce lower values than the previous assay method. NEW Reference Range: 13 - 75 U/L Magnesium [Mass/Vol] 2.0 mg/dL 1.6-2.6 [facility] Urea nitrogen/Creatinine [Mass ratio] 13.2 mg/mg 10-20 [facility] - Hematology and Cell countsOrdered By: Perico Norman on 02-26-2023 Erythrocyte distribution width (RBC) [Entitic vol] 38.7 fL 35.1-43.9 [facility] Erythrocyte distribution width (RBC) [Ratio] 13.2 % 11.6-14.6 [facility] Immature granulocytes/100 WBC (Bld) 0.600 % 0.0-0.9 [facility] Comment on above: IG% - Immature Granu locytes (promyelocytes, myelocytes and metamyelocytes) > 1% indicates that a LEFT SHIFT is Present. MCH (RBC) [Entitic mass] 26.8 pg 27.0-32.0 [facility] Nucleated RBC/100 WBC (Bld) [Ratio] 0 % 0-5 [facility] MCHC Auto (RBC) [Mass/Vol]Or dered By: Perico Norman on 02-26-2023 MCHC (RBC) [Mass/Vol] 33.1 g/dL 32-36 [facility] Mucus LM Ql (Urine sed)Order ed By: Perico Norman on 02-26-2023 Mucus Ql (Urine sed) 0 SEEN /hpf [facility] Nitrite Test strip Ql (U)Ord ered By: Perico Norman on 02-26-2023 Nitrite Ql (U) Negative Negative [facility] No Panel InformationOrdered By: Perico Norman on 02-26-2023 Urine Transitional Epithelial Cells 0-5 SEEN /hpf 0-5 [facility] 0-5 SEEN /hpf 0-5 [facility] Estimated Creatinine Clearance Calc 50.20 ml/min [facility] Estimated GFR (MDRD) Amer 51 mL/min >60 [facility] Comment on above: GFR Calc Estimated GFR (MDRD) Non-Af Amer 42 mL/min >60 [facility] Comment on above: Non- GFR Calc 26.8 pg 27.0-32.0 [facility] 13.2 % 11.6-14.6 [facility] 38.7 fl 35.1-43.9 [facility] 0.600 % 0.0-0.9 [facility] 0 % 0-5 [facility] 42 mL/min >60 [facility] 51 mL/min >60 [facility] 50.20 ml/min [facility] 13.2 RATIO 10-20 [facility] 5.7 g/dL 2.2-4.2 [facility] 64 U/L 13-75 [facility] 108 U/L 45-117 [facility] 17 U/L 13-56 [facility] 2.0 mg/dL 1.6-2.6 [facility] 22.0 mmol/L 21.0-32.0 [facility] Platelets bldOrdered By: Bakari Norman on 02-26-2023 Platelets (Bld) [#/Vol] 483 10*3/uL 150-450 [facility] Protein Test strip Ql (U)Ord ered By: Perico Norman on 02-26-2023 Protein Ql (U) 30 mg/dl Negative [facility] Serum or plasma albumin hussein urement (mass/volume)Ordered By: Perico Norman on 02-26-2023 Albumin [Mass/Vol] 3.6 g/dL 3.2-5.0 [facility] Serum or plasma calcium hussein urement (mass/volume)Ordered By: Perico Norman on 02-26-2023 Calcium [Mass/Vol] 9.8 mg/dL 8.5-10.1 [facility] Serum or plasma creatinine m easurement (mass/volume)Ordered By: Perico Norman on 02-26-2023 Creatinine [Mass/Vol] 1.52 mg/dL 0.55-1.02 [facility] Comment on above: The validity of the calculated GFR & GFRAA in patients over 70 years has not been determined. Clinical correlation is essential. Serum or plasma urea nitroge n measurement (mass/volume)Ordered By: Perico Norman on 02-26-2023 Urea nitrogen [Mass/Vol] 20 mg/dL 01-26 [facility] Squamous epithelial cells de tection in urine sediment by light microscopyOrdered By: Perico Norman on 02-26-2023 Epithelial cells.squamous LM Ql (Urine sed) 0-5 SEEN /hpf 5-10 [facility] Thin prep Papanicolaou smear with manual screeningOrdered By: Perico Norman on 02-26-2023 Thin prep Papanicolaou smear with manual screening 12 U/L 15-37 [facility] Thin prep Papanicolaou smear with manual screening 11 5-15 [facility] Urine blood detectionOrdered By: Perico Norman on 02-26-2023 RBC Ql (U) 10 /ul Negative [facility] RBC Ql (U) 0 SEEN /hpf 0-5 [facility] Urine clarityOrdered By: Bakari Norman on 02-26-2023 Clarity (U) Clear Clear [facility] Urine color determinationOrd ered By: Perico Norman on 02-26-2023 Color (U) Yellow Yellow [facility] Urine glucose detectionOrder ed By: Perico Norman on 02-26-2023 Glucose Ql (U) 100 mg/dl Normal [facility] Urine leukocyte esterase det ection by dipstickOrdered By: Perico Norman on 02-26-2023 Leukocyte esterase Test strip Ql (U) 25 /ul Negative [facility] Urine pHOrdered By: Perico hernandez on 02-26-2023 pH (U) 5.0 [pH] 5.0 - 8.0 [facility] Urine sediment bacteria coun t by microscopy (number/high power field)Ordered By: Perico Norman on 02-26-2023 Bacteria LM.HPF (Urine sed) [#/Area] RARE /hpf None Seen [facility] Urine specific gravity measu rementOrdered By: Perico Norman on 02-26-2023 Specific gravity (U) [Rel density] 1.020 1.002-1.030 [facility] Urobilinogen Auto test strip Ql (U)Ordered By: Perico Norman on 02-26-2023 Urobilinogen Ql (U) Normal mg/dl Normal [facility] CBC + DIFFon 02-17-2023 Baso # 0.00 x10EE3/UL Normal 0.00 - 0.10 [facility] Comment on above: Performed By: #### 2 54414 #### [facility],[address] [place] [address] Basophils/100 WBC (Bld) 0.4 % Normal 0.0 - 2.0 [facility] Comment on above: Performed By: #### 2 86130 #### [facility],[address] [place] [address] CBC + DIFF Normal [facility] Comment on above: Result Comment: CBC- COMPLETE BLOOD COUNT Performed By: #### 2 39155 #### [facility],[address] [place] [address] EO # 0.00 x10EE3/UL Normal 0.00 - 0.50 [facility] Comment on above: Performed By: #### 2 61044 #### [facility],[address] [place] [address] Eosinophils/100 WBC (Bld) 0.2 % Normal 0.0 - 7.0 [facility] Comment on above: Performed By: #### 2 81956 #### [facility],[address] [place] [address] Erythrocyte distribution width (RBC) [Ratio] 15.1 % Normal 12.0 - 15.6 [facility] Comment on above: Performed By: #### 2 59032 #### [facility],[address] [place] [address] Hematocrit (Bld) [Volume fraction] 39.7 % Normal 34.0 - 46.0 [facility] Comment on above: Performed By: #### 2 55715 #### [facility],[address] [place] [address] Hemoglobin (Bld) [Mass/Vol] 13.3 g/dL Normal 12.0 - 16.0 [facility] Comment on above: Performed By: #### 2 33745 #### [facility],[address] [place] [address] Lymph # 3.30 x10EE3/UL High 0.80 - 2.80 [facility] Comment on above: Performed By: #### 2 10030 #### [facility],[address] [place] [address] Lymphocytes/100 WBC (Bld) 30.5 % Normal 20.0 - 45.0 [facility] Comment on above: Performed By: #### 2 42240 #### [facility],[address] [place] [address] MANUAL DIFF N/A Normal [facility] Comment on above: Performed By: #### 2 80536 #### [place] [address] MCH (RBC) [Entitic mass] 27 pg Normal 27 - 33 [facility] Comment on above: Performed By: #### 2 88113 #### [place] [address] MCHC 33 X10 3 Normal 32 - 36 [facility] Comment on above: Performed By: #### 2 60814 #### [address] [place] [address] MCV (RBC) [Entitic vol] 80 fL Normal 80 - 99 [facility] Comment on above: Performed By: #### 2 55920 #### [facility],[address] [place] [address] Braxton # 0.60 x10EE3/UL Normal 0.20 - 1.00 [facility] Comment on above: Performed By: #### 2 09848 #### [place] [address] MONOS % 5.9 % Normal 0.0 - 10.0 [facility] Comment on above: Performed By: #### 2 94111 #### [facility],[address] [place] [address] Morphology Franky (Bld) [Interp] N/A Normal [facility] Comment on above: Result Comment: {CD] Performed By: #### 2 97232 #### [facility],[address] [place] [address] Neut # 6.90 x10EE3/UL Normal 1.50 - 7.10 [facility] Comment on above: Performed By: #### 2 85307 #### [facility],[address] [place], [place] [address] Neutrophils/100 WBC (Bld) 63.0 % Normal 46.0 - 76.0 [facility] Comment on above: Performed By: #### 2 30710 #### [facility],[address] [place], [place] [address] PLATELET 561 x10EE3/UL High 150 - 450 [facility] Comment on above: Performed By: #### 2 88510 #### [facility],[address] [place] [address] Platelet mean volume (Bld) [Entitic vol] 7.6 fL Normal 6.6 - 10.5 [facility] Comment on above: Result Comment: AUTO MATED DIFFERENTIAL Performed By: #### 2 48732 #### [facility],[address] [place] [address] RBC 4.95 x 10EE6/UL Normal 4.10 - 5.30 [facility] Comment on above: Performed By: #### 2 75064 #### [facility],[address] [place], [place] [address] WBC 10.9 x 10EE3/UL High 4.5 - 10.8 [facility] Comment on above: Performed By: #### 2 38903 #### [facility],[address] [place], [place] [address] CMP with eGFRon 02-17-2023 AGE 33 years Normal [facility] Comment on above: Performed By: #### 2 04662 #### [facility],[address] [place] [address] Albumin [Mass/Vol] 3.5 g/dL Normal 3.4 - 5.0 [facility] Comment on above: Performed By: #### 2 98521 #### [facility],[address] [place] [address] Albumin/Globulin [Mass ratio] 0.6 {ratio} Low 0.9 - 1.6 [facility] Comment on above: Performed By: #### 2 89034 #### [facility],[address] [place] [address] ALK PHOS 112 U/L Normal 46 - 116 [facility] Comment on above: Performed By: #### 2 48627 #### [facility],[address] [place] [address] ALT [Catalytic activity/Vol] 28 U/L Normal 14 - 59 [facility] Comment on above: Performed By: #### 2 29798 #### [facility],[address] [place] [address] Anion gap [Moles/Vol] 21 mmol/L High 10 - 20 [facility] Comment on above: Performed By: #### 2 52146 #### [facility],[address] [place] [address] AST [Catalytic activity/Vol] 13 U/L Normal 13 - 39 [facility] Comment on above: Performed By: #### 2 78724 #### [facility],[address] [place] [address] B/C RATIO 12 ratio Normal 0 - 30 [facility] Comment on above: Performed By: #### 2 [id number] #### [facility],[address] [place] [address] Bilirubin [Mass/Vol] 0.6 mg/dL Normal 0.2 - 1.0 [facility] Comment on above: Performed By: #### 2 67044 #### [facility],[address] [place], [place] [id number] Calcium [Mass/Vol] 9.6 mg/dL Normal 8.5 - 10.1 [facility] Comment on above: Performed By: #### 2 63649 #### [facility],[address] [place], [place] [id number] Chloride [Moles/Vol] 94 mmol/L Low 98 - 107 [facility] Comment on above: Performed By: #### 2 90745 #### [facility],[address] [place] [address] CMP with eGFR Normal [facility] Comment on above: Result Comment: COMP REHENSIVE METABOLIC PANEL Performed By: #### 2 48927 #### [facility],[address] [place] [address] CO2 [Moles/Vol] 23.7 mmol/L Normal 21.0 - 32.0 [facility] Comment on above: Performed By: #### 2 58941 #### [facility],[address] [place], [place] [id number] Creatinine [Mass/Vol] 1.18 mg/dL High 0.55 - 1.02 [facility] Comment on above: Performed By: #### 2 60420 #### [facility],[address] [place], [place] [id number] eGFR 53 ML/MINUTE Low 60 - 999 [facility] Comment on above: Performed By: #### 2 47557 #### [facility],[address] [place], [place] [id number] GFR/1.73 sq M.predicted among non-blacks MDRD (S/P/Bld) [Vol rate/Area] mL/min/{1.73_m2} Normal 60 - 999 [facility] Comment on above: Result Comment: ACCO RDING TO THE NATIONAL KIDNEY DISEASE EDUCATION PROGRAM(NKDE), A NORMAL eGFR IS A VALUE GREATER THAN OR EQUAL TO 60 ML/MIN/1.73 SQ METERS. CHRONIC KIDNEY DISEASE: <60mL/MIN/1.73 SQ METERS KIDNEY FAILURE: <15mL/MIN/1.73 SQ METERS THIS TEST SHOULD ONLY BE USED FOR PATIENTS 18 YEARS OF AGE AND OLDER. Performed By: #### 2 16535 #### [facility],[address] [place] [address] Globulin (S) [Mass/Vol] 5.4 g/dL High 1.5 - 3.8 [facility] Comment on above: Performed By: #### 2 80456 #### [facility],[address] [place] [address] Glucose [Mass/Vol] 306 mg/dL High 74 - 106 [facility] Comment on above: Performed By: #### 2 41898 #### [address] [address] Potassium [Moles/Vol] 3.9 mmol/L Normal 3.5 - 5.1 [facility] Comment on above: Performed By: #### 2 62412 #### [facility],[address] [place] [address] Protein [Mass/Vol] 8.9 g/dL High 6.4 - 8.2 [facility] Comment on above: Performed By: #### 2 72927 #### [facility],[address] [place] [address]76 Sodium [Moles/Vol] 135 mmol/L Low 136 - 145 [facility] Comment on above: Performed By: #### 2 76540 #### [facility],[address] [place] [address] Urea nitrogen [Mass/Vol] 14 mg/dL Normal 7 - 18 [facility] Comment on above: Performed By: #### 2 33879 #### [address] [address] DRUG SCREEN URINE MEDICon AMPHETAMINES Negative Normal [facility] Comment on above: Performed By: #### 2 57155 #### [address] [address] B-DIAZEPINES Negative Normal [facility] Comment on above: Performed By: #### 2 48444 #### [facility],[address] [place] [address] BARBITURATES Negative Normal [facility] Comment on above: Performed By: #### 2 45134 #### [facility],[address] [place] [address] COCAINE Negative Normal [facility] Comment on above: Performed By: #### 2 15717 #### [facility],[address] [place] [address] DRUG SCREEN URINE MEDIC Normal [facility] Comment on above: Result Comment: DRUG SCREEN - URINE Performed By: #### 2 01432 #### [facility],[address] [place] [address] METHADONE Negative Normal [facility] Comment on above: Performed By: #### 2 35238 #### [facility],[address] [place], [place] [id number] OPIATES Negative [facility] Comment on above: Performed By: #### 2 28102 #### [facility],[address] [place], [place] [id number] PCP Negative [facility] Comment on above: Performed By: #### 2 44998 #### [facility],[address] [place] [address] THC Negative [facility] Comment on above: Result Comment: ERASTO ENTS RECEIVING PROTON PUMP INHIBITORS MAY DEMONSTRATE FALSE POSITIVE THC/CANNABINOID RESULTS. AN ALTERNATIVE CONFIRMATORY METHOD SHOULD BE CONSIDERED TO VERIFY POSITIVE RESULTS. Performed By: #### 2 50340 #### [facility],[address] [place], [place] [id number] LIPASEon 02-17-2023 Lipase [Catalytic activity/Vol] 103.0 U/L Normal 73.0 - 393 [facility] Comment on above: Performed By: #### 2 30705 #### [facility],[address] [place] [address] URINEon 02-17-2023 Beta HCG ( test) Ql (U) Negative Normal NEGATIVE [facility] Comment on above: Performed By: #### 2 90556 #### [facility],[address] [place], [place] [id number] EXTERNAL QC DONE? YES Normal [facility] Comment on above: Performed By: #### 2 54691 #### [facility],[address] [place] [address] INTERNAL QC PASS Normal [facility] Comment on above: Performed By: #### 2 67765 #### [facility],[address] [place], [place] [id number] URINALYSISon 02-17-2023 Amorphous NONE Normal [facility] Comment on above: Performed By: #### 2 12553 #### [facility],[address] [place], [place] [id number] Bacteria TRACE Normal [facility] Comment on above: Performed By: #### 2 49878 #### [facility],[address] [place], [place] [id number] Bilirubin Ql (U) Negative Normal NORMAL: NEGATIVE [facility] Comment on above: Performed By: #### 2 68099 #### [facility],[address] [place], [place] [id number] Casts NONE Normal [facility] Comment on above: Performed By: #### 2 57773 #### [facility],[address] [place] [address] Clarity (U) sl.cloudy Normal NORMAL: CLEAR [facility] Comment on above: Performed By: #### 2 81967 #### [facility],[address] [place] [address] Color (U) jaqui Normal NORMAL: YELLOW [facility] Comment on above: Performed By: #### 2 87637 #### [facility],[address] [place], [place] [id number] Crystals LM Nom (Urine sed) NONE Normal [facility] Comment on above: Performed By: #### 2 02075 #### [facility],[address] [place] [address] 18408 Epi Cells FEW Normal [facility] Comment on above: Performed By: #### 2 31867 #### [facility],[address] [place], [place] [id number] Glucose Ql (U) 250 Abnormal NORMAL: NORMAL [facility] Comment on above: Performed By: #### 2 04961 #### [facility],[address] [place], [place] [id number] Hemoglobin Ql (U) Negative Normal NORMAL: NEGATIVE [facility] Comment on above: Performed By: #### 2 22885 #### [facility],[address] [place] [address] Ketone 150 Abnormal NORMAL: NEGATIVE [facility] Comment on above: Performed By: #### 2 13133 #### [facility],[address] [place] [address]8878 Leukocytes 25 Abnormal NORMAL: NEGATIVE [facility] Comment on above: Performed By: #### 2 14390 #### [facility],[address] [place] [address] Mucous NONE Normal [facility] Comment on above: Performed By: #### 2 72575 #### [facility],[address] [place] [address] Nitrite Ql (U) Negative Normal NORMAL: NEGATIVE [facility] Comment on above: Performed By: #### 2 10331 #### [facility],[address] [place] [address] 89745 pH (U) 8 [pH] Normal NORMAL: 5.0-8.0 [facility] Comment on above: Performed By: #### 2 04519 #### [facility],[address] [place] [address]83 Protein Ql (U) 30 Abnormal NORMAL: NEGATIVE [facility] Comment on above: Performed By: #### 2 33465 #### [facility],[address] [place], [place] [id number] Rbc NONE Normal 0-3/hpf [facility] Comment on above: Performed By: #### 2 32177 #### [facility],[address] [place] [address] Sp Zephyr 1.010 Normal NORMAL: 1.010-1.030 [facility] Comment on above: Performed By: #### 2 57181 #### [facility],[address] [place] [address] Specimen Type UNSPECIFIED Normal [facility] Comment on above: Performed By: #### 2 02291 #### [facility],[address] [place] [address] Urinalysis dipstick W Reflex Microscopic panel (U) SEE BELOW Normal [facility] Comment on above: Result Comment: MICR OSCOPIC Performed By: #### 2 94594 #### [facility],[address] [place] [address] Urobilinog NORM Normal NORMAL: NORMAL [facility] Comment on above: Performed By: #### 2 88093 #### [facility],[address] [place] [address] Wbc 1-5 Normal 0-5/hpf [facility] Comment on above: Performed By: #### 2 73443 #### [facility],[address] [place] [address] Yeast NONE Normal [facility] Comment on above: Performed By: #### 2 48751 #### [facility],[address] [place], [place] [id number] .Auto Diffon 02-11-2023 Basophil, Absolute 0.1 10 3/mcL Normal 0.0-0.2 [facility] ([place]) Comment on above: Performed By: #### A DIFF, GFR, MDW, CMP, ANEU, CBC, LIP #### [address] [address] Basophils/100 WBC (Bld) 0.5 % Normal 0.0-2.5 [facility] ([place]) Comment on above: Performed By: #### A DIFF, GFR, MDW, CMP, ANEU, CBC, LIP #### [address] [address] Eosinophil, Absolute 0.0 10 3/mcL Normal 0.0-0.4 [facility] ([place]) Comment on above: Performed By: #### A DIFF, GFR, MDW, CMP, ANEU, CBC, LIP #### [address] [address] Eosinophils/100 WBC (Bld) 0.2 % Normal 0.0-7.0 [facility] ([place]) Comment on above: Performed By: #### A DIFF, GFR, MDW, CMP, ANEU, CBC, LIP #### [address] [address] Lymphocyte, Absolute 4.2 10 3/mcL High 0.8-3.9 [facility] ([place]) Comment on above: Performed By: #### A DIFF, GFR, MDW, CMP, ANEU, CBC, LIP #### [address] [address] Lymphocytes/100 WBC (Bld) 32.7 % Normal 10.0-50.0 [facility] ([place]) Comment on above: Performed By: #### A DIFF, GFR, MDW, CMP, ANEU, CBC, LIP #### [address] [address] Monocyte, Absolute 0.9 10 3/mcL Normal 0.2-1.0 [facility] ([place]) Comment on above: Performed By: #### A DIFF, GFR, MDW, CMP, ANEU, CBC, LIP #### [address] [address] Monocytes/100 WBC (Bld) 7.0 % Normal 1.7-13.0 [facility] ([place]) Comment on above: Performed By: #### A DIFF, GFR, MDW, CMP, ANEU, CBC, LIP #### [address] [address] Neutrophils/100 WBC (Bld) 59.6 % Normal 37.0-80.0 [facility] ([place]) Comment on above: Performed By: #### A DIFF, GFR, MDW, CMP, ANEU, CBC, LIP #### [address] [address] Basophil, Absolute 0.1 10 3/mcL Normal 0.0-0.2 [facility] ([place]) Comment on above: Performed By: #### C MP, GFR, CBC, LIP, ADIFF, ANEU, MDW #### [address] [address] Basophils/100 WBC (Bld) 0.6 % Normal 0.0-2.5 [facility] ([place]) Comment on above: Performed By: #### C MP, GFR, CBC, LIP, ADIFF, ANEU, MDW #### [address] [address] Eosinophil, Absolute 0.0 10 3/mcL Normal 0.0-0.4 [facility] ([place]) Comment on above: Performed By: #### C MP, GFR, CBC, LIP, ADIFF, ANEU, MDW #### [address] [address] Eosinophils/100 WBC (Bld) 0.1 % Normal 0.0-7.0 [facility] ([place]) Comment on above: Performed By: #### C MP, GFR, CBC, LIP, ADIFF, ANEU, MDW #### [address] [address] Lymphocyte, Absolute 4.2 10 3/mcL High 0.8-3.9 [facility] ([place]) Comment on above: Performed By: #### C MP, GFR, CBC, LIP, ADIFF, ANEU, MDW #### [address] [address] Lymphocytes/100 WBC (Bld) 26.5 % Normal 10.0-50.0 [facility] ([place]) Comment on above: Performed By: #### C MP, GFR, CBC, LIP, ADDESIRAE ROMERO MDW #### [address] [address] Monocyte, Absolute 1.0 10 3/mcL Normal 0.2-1.0 [facility] ([place]) Comment on above: Performed By: #### C MP, GFR, CBC, LIP, ADIFF, ALDAIR MERRILL #### [address] [address] Monocytes/100 WBC (Bld) 6.1 % Normal 1.7-13.0 [facility] ([place]) Comment on above: Performed By: #### C MP, GFR, CBC, LIP, ADIFFDESIRAE MDW #### [address] [address] Neutrophils/100 WBC (Bld) 66.7 % Normal 37.0-80.0 [facility] ([place]) Comment on above: Performed By: #### C MP, GFR, CBC, LIP, ADDESIRAE ROMERO MDW #### [address] [address] .GFRon 02-11-2023 GFR 63 ml/min/1.73sqm Normal [facility] ([place]) Comment on above: Result Comment: GFR Population [...] GFR, MDW, CMP, ANEU, CBC, LIP #### [address] [address] GFR Non- 52 ml/min/1.73sqm Normal [facility] ([place]) Comment on above: Result Comment: GFR Population [...] GFR, MDW, CMP, ANEU, CBC, LIP #### [address] [address] GFR Non- 42 ml/min/1.73sqm Normal [facility] ([place]) Comment on above: Result Comment: GFR Population [...] GFR, MDW, CMP, ANEU, CBC, LIP #### [address] [address] GFR 51 ml/min/1.73sqm Normal [facility] ([place]) Comment on above: Result Comment: GFR Population [...] GFR, MDW, CMP, ANEU, CBC, LIP #### [place] [id number] .MDWon 02-11-2023 Monocyte Distribution Width 19.69 Normal 0.00-20.00 [facility] ([place]) Comment on above: Result Comment: For ED adult patients suspected of sepsis, MDW<=20.0 does not rule out sepsis or risk of sepsis Performed By: #### A DIFF, GFR, MDW, CMP, ANEU, CBC, LIP #### [place] [id number] .NEUABSon 02-11-2023 Neutrophil, Absolute 7.6 10 3/mcL High 2.9-6.2 [facility] ([place]) Comment on above: Performed By: #### A DIFF, GFR, MDW, CMP, ANEU, CBC, LIP #### [place] [address] Neutrophil, Absolute 10.5 10 3/mcL High 2.9-6.2 [facility] ([place]) Comment on above: Performed By: #### C MP, GFR, CBC, LIP, ADIFF, ANEU, MDW #### [address] [address] .Urinalysis Microscopic (AO) on 02-11-2023 UA Bacteria Trace Abnormal [facility] ([place]) Comment on above: Performed By: #### A DIFF, GFR, MDW, CMP, ANEU, CBC, LIP #### [address] [address] UA RBC None Seen Normal None Seen [facility] ([place] Comment on above: Performed By: #### A DIFF, GFR, MDW, CMP, ANEU, CBC, LIP #### [address] [address] UA Squam Epithelial 0-5 Abnormal None Seen [facility] ([place] Comment on above: Performed By: #### A DIFF, GFR, MDW, CMP, ANEU, CBC, LIP #### [address] [address] UA WBC 0-5 Abnormal None Seen [facility] ([place] Comment on above: Performed By: #### A DIFF, GFR, MDW, CMP, ANEU, CBC, LIP #### [place] [address] A1Con 02-11-2023 HbA1c (Bld) [Mass fraction] 9.0 % High 4.3-6.4 [facility] ([place]) Comment on above: Performed By: #### A DIFF, GFR, MDW, CMP, ANEU, CBC, LIP #### [place] [address] CBCon 02-11-2023 Erythrocyte distribution width (RBC) [Ratio] 14.8 % High 11.5-14.5 [facility] ([place] Comment on above: Performed By: #### A DIFF, GFR, MDW, CMP, ANEU, CBC, LIP #### [address] [address] Hematocrit (Bld) [Volume fraction] 34.6 % Low 37.0-47.0 [facility] ([place]) Comment on above: Performed By: #### A DIFF, GFR, MDW, CMP, ANEU, CBC, LIP #### [address] [address] Hgb 11.5 G/dL Low 12.0-16.0 [facility] ([place] Comment on above: Performed By: #### A DIFF, GFR, MDW, CMP, ANEU, CBC, LIP #### [address] [address] MCH (RBC) [Entitic mass] 26.6 pg Low 27.0-31.2 [facility] ([place]) Comment on above: Performed By: #### A DIFF, GFR, MDW, CMP, ANEU, CBC, LIP #### [address] [address] MCHC 33.3 G/dL Normal 33.0-37.0 [facility] ([place] Comment on above: Performed By: #### A DIFF, GFR, MDW, CMP, ANEU, CBC, LIP #### [address] [address] MCV (RBC) [Entitic vol] 80.0 fL Normal 80.0-94.0 [facility] ([place]) Comment on above: Performed By: #### A DIFF, GFR, MDW, CMP, ANEU, CBC, LIP #### [address] [address] Platelet 332 10 3/mcL Normal 130-400 [facility] ([place]) Comment on above: Performed By: #### A DIFF, GFR, MDW, CMP, ANEU, CBC, LIP #### [address] [address] Platelet mean volume (Bld) [Entitic vol] 7.5 fL Normal 7.4-10.4 [facility] ([place]) Comment on above: Performed By: #### A DIFF, GFR, MDW, CMP, ANEU, CBC, LIP #### [address] [address] RBC 4.33 10 6/mcL Normal 4.20-5.40 [facility] ([place]) Comment on above: Performed By: #### A DIFF, GFR, MDW, CMP, ANEU, CBC, LIP #### [address] [address] WBC 12.7 10 3/mcL High 4.6-10.8 [facility] ([place]) Comment on above: Performed By: #### A DIFF, GFR, MDW, CMP, ANEU, CBC, LIP #### [address] [address] Erythrocyte distribution width (RBC) [Ratio] 14.9 % High 11.5-14.5 [facility] ([place]) Comment on above: Performed By: #### C MP, GFR, CBC, LIP, ADIFF, ANEU, MDW #### [place] [phone] Hematocrit (Bld) [Volume fraction] 38.8 % Normal 37.0-47.0 [facility] ([place] Comment on above: Performed By: #### C MP, GFR, CBC, LIP, ADIFF, ANEUMDW #### [address] [address] Hgb 12.7 G/dL Normal 12.0-16.0 [facility] ([place] Comment on above: Performed By: #### C MP, GFR, CBC, LIP, ADIFF, ANEUMDW #### [address] [address] MCH (RBC) [Entitic mass] 26.6 pg Low 27.0-31.2 [facility] ([place]) Comment on above: Performed By: #### C MP, GFR, CBC, LIP, ADIFF, DESIRAE, MDW #### [address] [address] MCHC 32.8 G/dL Low 33.0-37.0 [facility] ([place]) Comment on above: Performed By: #### C MP, GFR, CBC, LIP, ADIFF, MD DESIRAEW #### [address] [address] MCV (RBC) [Entitic vol] 81.2 fL Normal 80.0-94.0 [facility] ([place]) Comment on above: Performed By: #### C MP, GFR, CBC, LIP, ADIFF, ANEUMDW #### [address] [address] Platelet 385 10 3/mcL Normal 130-400 [facility] ([place]) Comment on above: Performed By: #### C MP, GFR, CBC, LIP, ADIFF, DESIRAE, MDW #### [address] [address] Plate[place] mean volume (Bld) [Entitic vol] 7.6 fL Normal 7.4-10.4 [facility] ([place] Comment on above: Performed By: #### C MP, GFR, CBC, LIP, ADIFF, ANEU, MDW #### [address] [address] RBC 4.78 10 6/mcL Normal 4.20-5.40 [facility] ([place]) Comment on above: Performed By: #### C MP, GFR, CBC, LIP, ADIFF, ANEU, MDW #### [address] [address] WBC 15.8 10 3/mcL High 4.6-10.8 [facility] ([place]) Comment on above: Performed By: #### C MP, GFR, CBC, LIP, ADIFF, ANEU, MDW #### [address] [address] CMPon 02-11-2023 ALT [Catalytic activity/Vol] 15 U/L Normal 14-59 [facility] ([place]) Comment on above: Performed By: #### A DIFF, GFR, MDW, CMP, ANEU, CBC, LIP #### [address] [address] Albumin Level 3.0 G/dL Low 3.5-5.0 [facility] ([place]) Comment on above: Performed By: #### A DIFF, GFR, MDW, CMP, ANEU, CBC, LIP #### [address] [address] Albumin/Globulin [Mass ratio] 0.8 {ratio} Low 1.1-2.5 [facility] ([place]) Comment on above: Performed By: #### A DIFF, GFR, MDW, CMP, ANEU, CBC, LIP #### [address] [address] ALP [Catalytic activity/Vol] 78 U/L Normal 40-135 [facility] ([place]) Comment on above: Performed By: #### A DIFF, GFR, MDW, CMP, ANEU, CBC, LIP #### [address] [address] AST [Catalytic activity/Vol] 17 U/L Normal 10-40 [facility] ([place]) Comment on above: Performed By: #### A DIFF, GFR, MDW, CMP, ANEU, CBC, LIP #### [address] [address] Bili Total 0.6 mg/dL Normal 0.2-1.0 [facility] ([place]) Comment on above: Result Comment: Use of this assay is not recommended for patients undergoing treatment with eltrombopag due to the potential for falsely elevated results. Performed By: #### A DIFF, GFR, MDW, CMP, ANEU, CBC, LIP #### [address] [address] BUN/Creatinine Ratio 6 ratio Low 7-27 [facility] ([place]) Comment on above: Performed By: #### A DIFF, GFR, MDW, CMP, ANEU, CBC, LIP #### [address] [address] Calcium [Mass/Vol] 8.5 mg/dL Normal 8.4-10.2 [facility] ([place]) Comment on above: Performed By: #### A DIFF, GFR, MDW, CMP, ANEU, CBC, LIP #### [address] [address] Chloride [Moles/Vol] 96 mmol/L Low 98-107 [facility] ([place]) Comment on above: Performed By: #### A DIFF, GFR, MDW, CMP, ANEU, CBC, LIP #### [address] [address] CO2 [Moles/Vol] 29 mmol/L Normal 22-29 [facility] ([place]) Comment on above: Performed By: #### A DIFF, GFR, MDW, CMP, ANEU, CBC, LIP #### [address] [address] Creatinine [Mass/Vol] 1.21 mg/dL High 0.55-1.02 [facility] ([place]) Comment on above: Performed By: #### A DIFF, GFR, MDW, CMP, ANEU, CBC, LIP #### [address] [address] Electrolyte Balance 11.0 mEq/L Normal 4.0-15.0 [facility] ([place]) Comment on above: Performed By: #### A DIFF, GFR, MDW, CMP, ANEU, CBC, LIP #### [address] [address] Globulin 3.7 G/dL Normal [facility] ([place]) Comment on above: Performed By: #### A DIFF, GFR, MDW, CMP, ANEU, CBC, LIP #### [address] [address] Glucose [Mass/Vol] 246 mg/dL High 70-105 [facility] ([place]) Comment on above: Performed By: #### A DIFF, GFR, MDW, CMP, ANEU, CBC, LIP #### [address] [address] Potassium [Moles/Vol] 3.5 mmol/L Normal 3.5-5.1 [facility] ([place]) Comment on above: Performed By: #### A DIFF, GFR, MDW, CMP, ANEU, CBC, LIP #### [address] [address] Sodium [Moles/Vol] 136 mmol/L Normal 136-145 [facility] ([place]) Comment on above: Performed By: #### A DIFF, GFR, MDW, CMP, ANEU, CBC, LIP #### [address] [address] Total Protein 6.7 G/dL Normal 6.4-8.2 [facility] ([place] Comment on above: Performed By: #### A DIFF, GFR, MDW, CMP, ANEU, CBC, LIP #### [address] [address] Urea nitrogen [Mass/Vol] 7 mg/dL Normal 7-18 [facility] ([place]) Comment on above: Performed By: #### A DIFF, GFR, MDW, CMP, ANEU, CBC, LIP #### [address] [address] Albumin Level 3.7 G/dL Normal 3.5-5.0 [facility] ([place]) Comment on above: Performed By: #### A DIFF, GFR, MDW, CMP, ANEU, CBC, LIP #### [address] [address] Albumin/Globulin [Mass ratio] 0.8 {ratio} Low 1.1-2.5 [facility] ([place]) Comment on above: Performed By: #### A DIFF, GFR, MDW, CMP, ANEU, CBC, LIP #### [address] [address] ALP [Catalytic activity/Vol] 88 U/L Normal 40-135 [facility] ([place] Comment on above: Performed By: #### A DIFF, GFR, MDW, CMP, ANEU, CBC, LIP #### [address] [address] ALT [Catalytic activity/Vol] 16 U/L Normal 14-59 [facility] ([place] Comment on above: Performed By: #### A DIFF, GFR, MDW, CMP, ANEU, CBC, LIP #### [address] [address] AST [Catalytic activity/Vol] 10 U/L Normal 10-40 [facility] ([place] Comment on above: Performed By: #### A DIFF, GFR, MDW, CMP, ANEU, CBC, LIP #### [address] [address] Bili Total 0.9 mg/dL Normal 0.2-1.0 [facility] ([place]) Comment on above: Result Comment: Use of this assay is not recommended for patients undergoing treatment with eltrombopag due to the potential for falsely elevated results. Performed By: #### A DIFF, GFR, MDW, CMP, ANEU, CBC, LIP #### [address] [address] BUN/Creatinine Ratio 6 ratio Low 7-27 [facility] ([place]) Comment on above: Performed By: #### A DIFF, GFR, MDW, CMP, ANEU, CBC, LIP #### [address] [address] Calcium [Mass/Vol] 9.4 mg/dL Normal 8.4-10.2 [facility] ([place]) Comment on above: Performed By: #### A DIFF, GFR, MDW, CMP, ANEU, CBC, LIP #### [address] [address] Chloride [Moles/Vol] 90 mmol/L Low 98-107 [facility] ([place]) Comment on above: Performed By: #### A DIFF, GFR, MDW, CMP, ANEU, CBC, LIP #### [address] [address] CO2 [Moles/Vol] 30 mmol/L High 22-29 [facility] ([place] Comment on above: Performed By: #### A DIFF, GFR, MDW, CMP, ANEU, CBC, LIP #### [address] [address] Creatinine [Mass/Vol] 1.45 mg/dL High 0.55-1.02 [facility] ([place]) Comment on above: Performed By: #### A DIFF, GFR, MDW, CMP, ANEU, CBC, LIP #### [address] [address] Electrolyte Balance 7.0 mEq/L Normal 4.0-15.0 [facility] ([place]) Comment on above: Performed By: #### A DIFF, GFR, MDW, CMP, ANEU, CBC, LIP #### [address] [address] Globulin 4.4 G/dL Normal [facility] ([place] Comment on above: Performed By: #### A DIFF, GFR, MDW, CMP, ANEU, CBC, LIP #### [address] [address] Glucose [Mass/Vol] 307 mg/dL High 70-105 [facility] ([place] Comment on above: Performed By: #### A DIFF, GFR, MDW, CMP, ANEU, CBC, LIP #### [address] [address] Potassium [Moles/Vol] 3.5 mmol/L Normal 3.5-5.1 [facility] ([place]) Comment on above: Performed By: #### A DIFF, GFR, MDW, CMP, ANEU, CBC, LIP #### [address] [address] Sodium [Moles/Vol] 127 mmol/L Low 136-145 [facility] ([place] Comment on above: Performed By: #### A DIFF, GFR, MDW, CMP, ANEU, CBC, LIP #### [address] [address] Total Protein 8.1 G/dL Normal 6.4-8.2 [facility] Comment on above: Performed By: #### A DIFF, GFR, MDW, CMP, ANEU, CBC, LIP #### [address] [address] Urea nitrogen [Mass/Vol] 8 mg/dL Normal 7-18 [facility] ([place] Comment on above: Performed By: #### A DIFF, GFR, MDW, CMP, ANEU, CBC, LIP #### [address] [address] LABORATORYOrdered By: Harriet logan on 02-11-2023 Blood Glucose Testing Reason Routine (02/11/23 4:15 PM) [facility] Work Phone: Glucose [Mass/Vol] 203 mg/dL Invalid Interpretation Code 70 - 110 mg/dL [facility] Work Phone: Blood Glucose Testing Reason Routine (02/11/23 7:15 AM) [facility] Work Phone: Glucose [Mass/Vol] 237 mg/dL Invalid Interpretation Code 70 - 110 mg/dL [facility] Work Phone: LABORATORYOrdered By: Manjinder Boogie on 02-11-2023 Blood Glucose Testing Reason Routine (02/11/23 12:04 PM) [facility] Work Phone: Glucose [Mass/Vol] 220 mg/dL Invalid Interpretation Code 70 - 110 mg/dL [facility] Work Phone: LABORATORYOrdered By: SYSTEM SYSTEM [...] Lvl 1.7 mmol/L Normal 0.4-2.0 [facility] ([place] Comment on above: Performed By: #### A DIFF, GFR, MDW, CMP, ANEU, CBC, LIP #### [address] [address] LIPon 02-11-2023 Lipase Level 39 U/L Normal 16-77 [facility] ([place] Comment on above: Performed By: #### A DIFF, GFR, MDW, CMP, ANEU, CBC, LIP #### [address] [address] MGon 02-11-2023 Magnesium [Mass/Vol] 2.1 mg/dL Normal 1.8-2.4 [facility] ([place]) Comment on above: Performed By: #### A DIFF, GFR, MDW, CMP, ANEU, CBC, LIP #### [facility] [address] [place], [place] [address] NM GASTRIC EMPTYING STUDYon 02-11-2023 NM GASTRIC [...] 02/11/2023 3:41:00 PM Ordering Provider: MARTI WEBB [facility] ([place]) No Panel Informationon 02-11 Microscopic examination of blood, culture Culture has been received in lab and is no growth to date. Routine cultures are held for 5 days. [facility] Work Phone: PREGUon 02-11-2023 HCG ( test) Ql (U) Negative [facility] ([place]) Comment on above: Performed By: #### A DIFF, GFR, MDW, CMP, ANEU, CBC, LIP #### [facility] [address] [place], [place] [address] test (u) int Not detected Invalid Interpretation Code [facility] ([place] Comment on above: Performed By: #### A DIFF, GFR, MDW, CMP, ANEU, CBC, LIP #### [address] [address] TOXSCon 02-11-2023 U Ampheta (AO) Negative Normal [facility] ([place] Comment on above: Performed By: #### A DIFF, GFR, MDW, CMP, ANEU, CBC, LIP #### [address] [address] U Marifer (AO) Negative Normal [facility] ([place] Comment on above: Performed By: #### A DIFF, GFR, MDW, CMP, ANEU, CBC, LIP #### [address] [address] U Ayan (AO) Negative [facility] ([place] Comment on above: Performed By: #### A DIFF, GFR, MDW, CMP, ANEU, CBC, LIP #### [address] [address] U Cannab (AO) Positive [facility] ([place] Comment on above: Performed By: #### A DIFF, GFR, MDW, CMP, ANEU, CBC, LIP #### [address] [address] U Cocaine (AO) Negative [facility] ([place] Comment on above: Performed By: #### A DIFF, GFR, MDW, CMP, ANEU, CBC, LIP #### [address] [address] U Methadone (AO) Negative [facility] ([place] Comment on above: Performed By: #### A DIFF, GFR, MDW, CMP, ANEU, CBC, LIP #### [address] [address] U PCP (AO) Negative [facility] ([place]) Comment on above: Performed By: #### A DIFF, GFR, MDW, CMP, ANEU, CBC, LIP #### [address] [address] U TCA (AO) Negative Normal [facility] ([place] Comment on above: Performed By: #### A DIFF, GFR, MDW, CMP, ANEU, CBC, LIP #### [address] [address] Urine Opiates (AO) Positive Normal [facility] ([place] Comment on above: Performed By: #### A DIFF, GFR, MDW, CMP, ANEU, CBC, LIP #### [address] [address] UAon 02-11-2023 Color (U) Yellow Normal [facility] ([place] Comment on above: Performed By: #### A DIFF, GFR, MDW, CMP, ANEU, CBC, LIP #### [address] [address] Glucose (U) [Mass/Vol] 100 mg/dL Abnormal Negative [facility] ([place]) Comment on above: Performed By: #### A DIFF, GFR, MDW, CMP, ANEU, CBC, LIP #### [address] [address] Ketones Ql (U) Negative Normal Negative [facility] ([place] Comment on above: Performed By: #### A DIFF, GFR, MDW, CMP, ANEU, CBC, LIP #### [address] [address] UA Appear Clear Normal Clear [facility] ([place] Comment on above: Performed By: #### A DIFF, GFR, MDW, CMP, ANEU, CBC, LIP #### [address] [address] UA Blood Trace Abnormal Negative [facility] ([place] Comment on above: Performed By: #### A DIFF, GFR, MDW, CMP, ANEU, CBC, LIP #### [address] [address] UA Leuk Est Negative Normal Negative [facility] ([place] Comment on above: Performed By: #### A DIFF, GFR, MDW, CMP, ANEU, CBC, LIP #### [address] [address] UA Nitrite Negative Normal Negative [facility] ([place] Comment on above: Performed By: #### A DIFF, GFR, MDW, CMP, ANEU, CBC, LIP #### [address] [address] UA pH 7.0 Normal 5.0 - 8.0 [facility] ([place] Comment on above: Performed By: #### A DIFF, GFR, MDW, CMP, ANEU, CBC, LIP #### [address] [address] UA Protein Negative Normal Negative [facility] ([place] Comment on above: Performed By: #### A DIFF, GFR, MDW, CMP, ANEU, CBC, LIP #### [address] [address] UA Spec Grav 1.015 Normal 1.015-1.025 [facility] ([place] Comment on above: Performed By: #### A DIFF, GFR, MDW, CMP, ANEU, CBC, LIP #### [address] [address] UA Specimen Type Void Normal [facility] ([place] Comment on above: Performed By: #### A DIFF, GFR, MDW, CMP, ANEU, CBC, LIP #### [address] [address] UA Urobilinogen 0.2 E.U./dL Normal 0.2-1.0 [facility] ([place] Comment on above: Performed By: #### A DIFF, GFR, MDW, CMP, ANEU, CBC, LIP #### [address] [address] Urobilinogen (U) [Mass/Vol] Negative Normal Negative [facility] ([place] Comment on above: Performed By: #### A DIFF, GFR, MDW, CMP, ANEU, CBC, LIP #### [address] [address] Color (U) Yellow Normal [facility] ([place] Comment on above: Performed By: #### A DIFF, GFR, MDW, CMP, ANEU, CBC, LIP #### [address] [address] Glucose (U) [Mass/Vol] 100 mg/dL Abnormal Negative [facility] ([place] Comment on above: Performed By: #### A DIFF, GFR, MDW, CMP, ANEU, CBC, LIP #### [address] [address] Ketones Ql (U) 15 mg/dL Abnormal Negative [facility] ([place] Comment on above: Performed By: #### A DIFF, GFR, MDW, CMP, ANEU, CBC, LIP #### [address] [address] UA Appear Clear Normal Clear [facility] ([place] Comment on above: Performed By: #### A DIFF, GFR, MDW, CMP, ANEU, CBC, LIP #### [address] [address] UA Blood Trace Abnormal Negative [facility] ([place] Comment on above: Performed By: #### A DIFF, GFR, MDW, CMP, ANEU, CBC, LIP #### [address] [address] UA Leuk Est Trace Abnormal Negative [facility] ([place] Comment on above: Performed By: #### A DIFF, GFR, MDW, CMP, ANEU, CBC, LIP #### [address] [address] UA Nitrite Negative Normal Negative [facility] ([place] Comment on above: Performed By: #### A DIFF, GFR, MDW, CMP, ANEU, CBC, LIP #### [address] [address] UA pH 5.5 Normal 5.0 - 8.0 [facility] ([place] Comment on above: Performed By: #### A DIFF, GFR, MDW, CMP, ANEU, CBC, LIP #### [address] [address] UA Protein Negative Normal Negative [facility] ([place] Comment on above: Performed By: #### A DIFF, GFR, MDW, CMP, ANEU, CBC, LIP #### [address] [address] UA Spec Grav <=1.005 Abnormal 1.015-1.025 [facility] ([place] Comment on above: Performed By: #### A DIFF, GFR, MDW, CMP, ANEU, CBC, LIP #### [place] [address] UA Specimen Type Clean Catch Normal [facility] ([place] Comment on above: Performed By: #### A DIFF, GFR, MDW, CMP, ANEU, CBC, LIP #### [address] [address] UA Urobilinogen 0.2 E.U./dL Normal 0.2-1.0 [facility] ([place] Comment on above: Performed By: #### A DIFF, GFR, MDW, CMP, ANEU, CBC, LIP #### [address] [address] Urobilinogen (U) [Mass/Vol] Negative Normal Negative [facility] ([place] Comment on above: Performed By: #### A DIFF, GFR, MDW, CMP, ANEU, CBC, LIP #### [address] [address] US ABDOMEN COMPLETEon 2022 US ABDOMEN COMPLETE [...] PM Ordering Provider: MARTI Maldonado [facility] ([place] PELVIS NON-OB W/TRANSVAGI NALon 02-11-2023 US [...] 02/11/2023 12:11:13 PM Ordering Provider: MARTI WEBB [facility] ([place]) XR ABDOMEN APon 02-11-2023 XR ABDOMEN AP [...] 02/11/2023 9:28:54 AM Ordering Provider: MARTI WEBB [facility] ([place]) LABORATORYOrdered By: SYSTEM SYSTEM on 02-10-2023 Albumin [...] Auto (Unsp spec) [#/Vol] 1.67 10*3/uL 0.83-4.51 [facility] Amorphous sediment detection in urine sediment by light microscopyOrdered By: Javy Doss on 02-08-2023 Amorphous sediment LM Ql (Urine sed) 3+ PHOS [facility] Basophil percentageOrdered B y: Remus Romario on 02-08-2023 Basophil percentage 0-5 SEEN /hpf 0-5 [facility] [place] Basophil percentage 325 mg/dL 74-106 [facility] Basophil percentage 9.2 g/dL 6.4-8.2 [facility] Basophil percentage 0.70 mg/dL 0.20-1.00 [facility] Basophil percentage 134 mmol/L 136-145 [facility] Basophil percentage 3.7 mmol/L 3.5-5.1 [facility] Basophil percentage 96 mmol/L 98-107 [facility] Basophils (Bld) [#/Vol] 9.1 10*3/uL 4.4-11.0 [facility] Basophils (Bld) [#/Vol] 7.0 10*3/uL 2.0-7.7 [facility] Basophils/100 WBC (Bld) 0.2 % 0-1 [facility] Basophils/100 WBC (Bld) 77.0 % 47-70 [facility] Basophils/100 WBC (Bld) 0.0 % 0-5 [facility] Bilirubin [Mass/Vol] 0.70 mg/dL 0.20-1.00 [facility] Comment on above: For patients on eltr ombopag therapy, use of [place] TBIL is not recommended. Chloride [Moles/Vol] 96 mmol/L 98-107 [facility] Eosinophils/100 WBC (Bld) 0.0 % 0-5 [facility] Glucose [Mass/Vol] 325 mg/dL 74-106 [facility] Comment on above: Glucose result great er than or equal to 200 mg/dLsuggests DIABETES MELLITUS per A.D.A. criteria. Neutrophils (Bld) [#/Vol] 7.0 10*3/uL 2.0-7.7 [facility] Neutrophils/100 WBC (Bld) 77.0 % 47-70 [facility] Potassium [Moles/Vol] 3.7 mmol/L 3.5-5.1 [facility] Protein [Mass/Vol] 9.2 g/dL 6.4-8.2 [facility] Sodium [Moles/Vol] 134 mmol/L 136-145 [facility] WBC (Bld) [#/Vol] 9.1 10*3/uL 4.4-11.0 [facility] Beta hCG serum qualOrdered B y: Javy Doss on 02-08-2023 Beta HCG ( test) Ql Negative [facility] Bilirubin Test strip Ql (U)O rdered By: Javy Doss on 02-08-2023 Bilirubin Ql (U) Negative Negative [facility] Blood erythrocytes count (nu mber/volume)Ordered By: Javy Doss on 02-08-2023 RBC (Bld) [#/Vol] 5.27 10*6/uL 4.2-5.4 [facility] Blood hemoglobin measurement (mass/volume)Ordered By: Javy Doss on 02-08-2023 Hemoglobin (Bld) [Mass/Vol] 13.9 g/dL 12.0-15.0 [facility] Blood lymphocytes/100 leukoc ytesOrdered By: Javy Doss on 02-08-2023 Lymphocytes/100 WBC (Bld) 18.4 % 19-41 [facility] Blood monocytes/100 leukocyt esOrdered By: Javy Doss on 02-08-2023 Monocytes/100 WBC (Bld) 3.6 % 0-10 [facility] Blood platelet mean volumeOr dered By: Javy Doss on 02-08-2023 Platelet mean volume (Bld) [Entitic vol] 9.3 fL 6.2-12.0 [facility] Determination of erythrocyte mean corpuscular volume (MCV)Ordered By: Javy Doss on 02-08-2023 MCV (RBC) [Entitic vol] 81.2 fL 81-99 [facility] Hematocrit Auto (Bld) [Volum e fraction]Ordered By: Javy Doss on 02-08-2023 Hematocrit (Bld) [Volume fraction] 42.8 % 37-47 [facility] Ketones Test strip Ql (U)Ord ered By: Javy Doss on 02-08-2023 Ketones Ql (U) 50 mg/dl Negative [facility] Laboratory - Chemistry and C hemistry - challengeOrdered By: Javy Doss on 02-08-2023 ALP [Catalytic activity/Vol] 105 U/L 45-117 [facility] ALT [Catalytic activity/Vol] 24 U/L 13-56 [facility] CO2 [Moles/Vol] 30.0 mmol/L 21.0-32.0 [facility] Globulin (S) [Mass/Vol] 5.4 g/dL 2.2-4.2 [facility] Lipase [Catalytic activity/Vol] 38 U/L 13-75 [facility] Comment on above: Please note:LIPASE r evised reference range effective 22. New Lipase methodology. Expected to produce lower values than the previous assay method. NEW Reference Range: 13 - 75 U/L Urea nitrogen/Creatinine [Mass ratio] 7.4 mg/mg 10-20 [facility] Laboratory - Hematology and Cell countsOrdered By: Javy Doss on 02-08-2023 Erythrocyte distribution width (RBC) [Entitic vol] 39.1 fL 35.1-43.9 [facility] Erythrocyte distribution width (RBC) [Ratio] 13.3 % 11.6-14.6 [facility] Immature granulocytes/100 WBC (Bld) 0.800 % 0.0-0.9 [facility] Comment on above: IG% - Immature Granu locytes (promyelocytes, myelocytes and metamyelocytes) > 1% indicates that a LEFT SHIFT is Present. MCH (RBC) [Entitic mass] 26.4 pg 27.0-32.0 [facility] Nucleated RBC/100 WBC (Bld) [Ratio] 0 % 0-5 [facility] MCHC Auto (RBC) [Mass/Vol]Or dered By: Javy Doss on 02-08-2023 MCHC (RBC) [Mass/Vol] 32.5 g/dL 32-36 [facility] Mucus LM Ql (Urine sed)Order ed By: Javy Doss on 02-08-2023 Mucus Ql (Urine sed) 0 SEEN /hpf [facility] Nitrite Test strip Ql (U)Ord ered By: Javy Doss on 02-08-2023 Nitrite Ql (U) Negative Negative [facility] No Panel InformationOrdered By: Javy Doss on 02-08-2023 Estimated Creatinine Clearance Calc 62.55 ml/min [facility] Estimated GFR (MDRD) Amer 66 mL/min >60 [facility] Comment on above: GFR Calc Estimated GFR (MDRD) Non-Af Amer 55 mL/min >60 [facility] Comment on above: Non- GFR Calc 26.4 pg 27.0-32.0 [facility] 13.3 % 11.6-14.6 [facility] 39.1 fl 35.1-43.9 [facility] 0.800 % 0.0-0.9 [facility] 0 % 0-5 [facility] 55 mL/min >60 [facility] 66 mL/min >60 [facility] 62.55 ml/min [facility] 7.4 RATIO 10-20 [facility] 5.4 g/dL 2.2-4.2 [facility] 38 U/L 13-75 [facility] 105 U/L 45-117 [facility] 24 U/L 13-56 [facility] 30.0 mmol/L 21.0-32.0 [facility] Platelets bldOrdered By: Haylee Romario on 02-08-2023 Platelets (Bld) [#/Vol] 394 10*3/uL 150-450 [facility] Protein Test strip Ql (U)Ord ered By: Haylee Romario on 02-08-2023 Protein Ql (U) 30 mg/dl Negative [facility] Serum or plasma albumin hussein urement (mass/volume)Ordered By: Javy Doss on 02-08-2023 Albumin [Mass/Vol] 3.8 g/dL 3.2-5.0 [facility] Serum or plasma albumin/glob ulin mass ratioOrdered By: Javy Romario on 02-08-2023 Albumin/Globulin [Mass ratio] 0.7 {ratio} 0.9-2.4 [facility] Serum or plasma calcium hussein urement (mass/volume)Ordered By: Javy Romario on 02-08-2023 Calcium [Mass/Vol] 9.7 mg/dL 8.5-10.1 [facility] Serum or plasma creatinine m easurement (mass/volume)Ordered By: Javy Doss on 02-08-2023 Creatinine [Mass/Vol] 1.22 mg/dL 0.55-1.02 [facility] Comment on above: The validity of the calculated GFR & GFRAA in patients over 70 years has not been determined. Clinical correlation is essential. Serum or plasma urea nitroge n measurement (mass/volume)Ordered By: Haylee Romario on 02-08-2023 Urea nitrogen [Mass/Vol] 9 mg/dL 7-18 [facility] Squamous epithelial cells de tection in urine sediment by light microscopyOrdered By: Javy Doss on 02-08-2023 Epithelial cells.squamous LM Ql (Urine sed) 0-5 SEEN /hpf 5-10 [facility] Thin prep Papanicolaou smear with manual screeningOrdered By: Remus Doss on 02-08-2023 Thin prep Papanicolaou smear with manual screening 15 U/L 15-37 [facility] Thin prep Papanicolaou smear with manual screening 8 5-15 [facility] Urine blood detectionOrdered By: Remus Romario on 02-08-2023 RBC Ql (U) Negative Negative [facility] RBC Ql (U) 0 SEEN /hpf 0-5 [facility] Urine clarityOrdered By: Rem us Romario on 02-08-2023 Clarity (U) Sl. Cloudy Clear [facility] Urine color determinationOrd ered By: Remus Doss on 02-08-2023 Color (U) Yellow Yellow [facility] Urine glucose detectionOrder ed By: Remus Doss on 02-08-2023 Glucose Ql (U) 1000 mg/dl Normal [facility] Urine leukocyte esterase det ection by dipstickOrdered By: Javy Doss on 02-08-2023 Leukocyte esterase Test strip Ql (U) 25 /ul Negative [facility] Urine pHOrdered By: Javy Un gur on 02-08-2023 pH (U) 8.0 [pH] 5.0 - 8.0 [facility] Urine sediment bacteria coun t by microscopy (number/high power field)Ordered By: Javy Doss on 02-08-2023 Bacteria LM.HPF (Urine sed) [#/Area] 0 /[HPF] None Seen [facility] Urine specific gravity measu rementOrdered By: Javy Doss on 02-08-2023 Specific gravity (U) [Rel density] 1.010 1.002-1.030 [facility] Urobilinogen Auto test strip Ql (U)Ordered By: Remus Doss on 02-08-2023 Urobilinogen Ql (U) Normal mg/dl Normal [facility] Absolute lymphocyte countOrd ered By: Fabricio Guevara on 02-04-2023 Lymphocytes Auto (Unsp spec) [#/Vol] 3.25 10*3/uL 0.83-4.51 [facility] Basophil percentageOrdered B y: Fabricio Guevara on 02-04-2023 Basophil percentage 259 mg/dL 74-106 [facility] Basophil percentage 8.1 g/dL 6.4-8.2 [facility] Basophil percentage 0.40 mg/dL 0.20-1.00 [facility] Basophil percentage 138 mmol/L 136-145 [facility] Basophil percentage 3.5 mmol/L 3.5-5.1 [facility] Basophil percentage 103 mmol/L 98-107 [facility] Basophils (Bld) [#/Vol] 8.8 10*3/uL 4.4-11.0 [facility] Basophils (Bld) [#/Vol] 4.9 10*3/uL 2.0-7.7 [facility] Basophils/100 WBC (Bld) 0.3 % 0-1 [facility] Basophils/100 WBC (Bld) 55.7 % 47-70 [facility] Basophils/100 WBC (Bld) 0.5 % 0-5 [facility] Bilirubin [Mass/Vol] 0.40 mg/dL 0.20-1.00 [facility] Comment on above: For patients on eltr ombopag therapy, use of [employer] TBIL is not recommended. Chloride [Moles/Vol] 103 mmol/L 98-107 [facility] Eosinophils/100 WBC (Bld) 0.5 % 0-5 [facility] Glucose [Mass/Vol] 259 mg/dL 74-106 [facility] Comment on above: Glucose result great er than or equal to 200 mg/dLsuggests DIABETES MELLITUS per A.D.A. criteria. Neutrophils (Bld) [#/Vol] 4.9 10*3/uL 2.0-7.7 [facility] Neutrophils/100 WBC (Bld) 55.7 % 47-70 [facility] Potassium [Moles/Vol] 3.5 mmol/L 3.5-5.1 [facility] Protein [Mass/Vol] 8.1 g/dL 6.4-8.2 [facility] Sodium [Moles/Vol] 138 mmol/L 136-145 [facility] WBC (Bld) [#/Vol] 8.8 10*3/uL 4.4-11.0 [facility] Blood erythrocytes count (nu mber/volume)Ordered By: Fabricio Guevara on 02-04-2023 RBC (Bld) [#/Vol] 4.65 10*6/uL 4.2-5.4 [facility] Blood hemoglobin measurement (mass/volume)Ordered By: Fabricio Guevara on 02-04-2023 Hemoglobin (Bld) [Mass/Vol] 12.5 g/dL 12.0-15.0 [facility] Blood lymphocytes/100 leukoc ytesOrdered By: Fabricio Guevara on 02-04-2023 Lymphocytes/100 WBC (Bld) 37.0 % 19-41 [facility] Blood monocytes/100 leukocyt esOrdered By: Fabricio Guevara on 02-04-2023 Monocytes/100 WBC (Bld) 5.8 % 0-10 [facility] Blood platelet mean volumeOr dered By: Fabricio Guevara on 02-04-2023 Platelet mean volume (Bld) [Entitic vol] 9.4 fL 6.2-12.0 [facility] Determination of erythrocyte mean corpuscular volume (MCV)Ordered By: Fabricio Guevara on 02-04-2023 MCV (RBC) [Entitic vol] 80.0 fL 81-99 [facility] Hematocrit Auto (Bld) [Volum e fraction]Ordered By: Fabricio Guevara on 02-04-2023 Hematocrit (Bld) [Volume fraction] 37.2 % 37-47 [facility] Laboratory - Chemistry and C hemistry - challengeOrdered By: Fabricio Guevara on 02-04-2023 ALP [Catalytic activity/Vol] 94 U/L 45-117 [facility] ALT [Catalytic activity/Vol] 29 U/L 13-56 [facility] CO2 [Moles/Vol] 25.0 mmol/L 21.0-32.0 [facility] Globulin (S) [Mass/Vol] 4.7 g/dL 2.2-4.2 [facility] Lipase [Catalytic activity/Vol] 51 U/L 13-75 [facility] Comment on above: Please note:LIPASE r evised reference range effective 22. New Lipase methodology. Expected to produce lower values than the previous assay method. NEW Reference Range: 13 - 75 U/L Urea nitrogen/Creatinine [Mass ratio] 7.0 mg/mg 10-20 [facility] Laboratory - Hematology and Cell countsOrdered By: Fabricio Guevara on 02-04-2023 Erythrocyte distribution width (RBC) [Entitic vol] 39.2 fL 35.1-43.9 [facility] Erythrocyte distribution width (RBC) [Ratio] 13.6 % 11.6-14.6 [facility] Immature granulocytes/100 WBC (Bld) 0.700 % 0.0-0.9 [facility] Comment on above: IG% - Immature Granu locytes (promyelocytes, myelocytes and metamyelocytes) > 1% indicates that a LEFT SHIFT is Present. MCH (RBC) [Entitic mass] 26.9 pg 27.0-32.0 [facility] Nucleated RBC/100 WBC (Bld) [Ratio] 0 % 0-5 [facility] MCHC Auto (RBC) [Mass/Vol]Or dered By: Fabricio Guevara on 02-04-2023 MCHC (RBC) [Mass/Vol] 33.6 g/dL 32-36 [facility] No Panel InformationOrdered By: Fabricio Guevara on 02-04-2023 Estimated GFR (MDRD) Amer 84 mL/min >60 [facility] Estimated GFR (MDRD) Non-Af Amer 69 mL/min >60 [facility] 26.9 pg 27.0-32.0 [facility] 13.6 % 11.6-14.6 [facility] 39.2 fl 35.1-43.9 [facility] 0.700 % 0.0-0.9 [facility] 0 % 0-5 [facility] 69 mL/min >60 [facility] 84 mL/min >60 [facility] 7.0 RATIO 10-20 [facility] 4.7 g/dL 2.2-4.2 [facility] 51 U/L 13-75 [facility] 94 U/L 45-117 [facility] 29 U/L 13-56 [facility] 25.0 mmol/L 21.0-32.0 [facility] Platelets bldOrdered By: Chidi Guevara on 02-04-2023 Platelets (Bld) [#/Vol] 358 10*3/uL 150-450 [facility] Serum or plasma albumin hussein urement (mass/volume)Ordered By: Fabricio Guevara on 02-04-2023 Albumin [Mass/Vol] 3.4 g/dL 3.2-5.0 [facility] Serum or plasma albumin/glob ulin mass ratioOrdered By: Fabricio Guevara on 02-04-2023 Albumin/Globulin [Mass ratio] 0.7 {ratio} 0.9-2.4 [facility] Serum or plasma calcium hussein urement (mass/volume)Ordered By: Fabricio Guevara on 02-04-2023 Calcium [Mass/Vol] 9.2 mg/dL 8.5-10.1 [facility] Serum or plasma creatinine m easurement (mass/volume)Ordered By: Fabricio Guevara on 02-04-2023 Creatinine [Mass/Vol] 1.00 mg/dL 0.55-1.02 [facility] Comment on above: The validity of the calculated GFR & GFRAA in patients over 70 years has not been determined. Clinical correlation is essential. Serum or plasma urea nitroge n measurement (mass/volume)Ordered By: Fabricio Guevara on 02-04-2023 Urea nitrogen [Mass/Vol] 7 mg/dL 7-18 [facility] Thin prep Papanicolaou smear with manual screeningOrdered By: Fabricio Guevara on 02-04-2023 Thin prep Papanicolaou smear with manual screening 18 U/L 15-37 [facility] Thin prep Papanicolaou smear with manual screening 10 5-15 [facility] CBC W Auto Differential pane l (Bld)Ordered By: Yashira Cleaning on 01-24-2023 Basophils (Bld) [#/Vol] 0.0 10*3/uL 0.0 - 0.2 10*3/uL [facility] [employer] Basophils/100 WBC (Bld) 0.3 % 0.0 - 2.0 % [facility] Eosinophils (Bld) [#/Vol] 0.0 10*3/uL 0.0 - 0.5 10*3/uL [facility] Eosinophils/100 WBC (Bld) 0.3 % Low 1.0 - 6.0 % [facility] [employer] Erythrocyte distribution width (RBC) [Ratio] 13.9 % 11.5 - 14.5 % [facility] [employer] Hematocrit (Bld) [Volume fraction] 37.2 % 35.0 - 47.0 % [facility] [employer] Hemoglobin (Bld) [Mass/Vol] 12.4 g/dL 11.7 - 16.0 g/dL [facility] Immature granulocytes (Bld) [#/Vol] 0.1 10*3/uL High NINF - 0.0 10*3/uL [facility] Immature granulocytes/100 WBC (Bld) 0.6 % High NINF - 0.0 % [facility] Interpretation and review of laboratory results Abnormal [facility] Lymphocytes (Bld) [#/Vol] 2.6 10*3/uL 1.0 - 4.3 10*3/uL [facility] Lymphocytes/100 WBC (Bld) 33.6 % 20.0 - 40.0 % [facility] MCH (RBC) [Entitic mass] 26.3 pg 26.0 - 34.0 pg [facility] MCHC (RBC) [Mass/Vol] 33.3 % 32.0 - 36.0 % [facility] MCV (RBC) [Entitic vol] 79.0 fL Low 80.0 - 98.0 fL [facility] Monocytes (Bld) [#/Vol] 0.5 10*3/uL 0.0 - 0.8 10*3/uL [facility] Monocytes/100 WBC (Bld) 5.9 % 2.0 - 10.0 % [facility] Neutrophils (Bld) [#/Vol] 4.6 10*3/uL 1.8 - 7.0 10*3/uL [facility] Neutrophils/100 WBC (Bld) 59.3 % 40.0 - 80.0 % [facility] Platelet mean volume (Bld) [Entitic vol] 9.1 fL 7.4 - 12.4 fL [facility] Comment on above: MPV is a calculated measurement using platelet volume ratio Platelets (Bld) [#/Vol] 342 10*3/uL 140 - 440 10*3/uL [facility] RBC (Bld) [#/Vol] 4.71 10*6/uL 3.8 - 5.20 10*6/uL [facility] WBC (Bld) [#/Vol] 7.8 10*3/uL 3.6 - 10.7 10*3/uL [facility] Comprehensive metabolic 1998 panelon 01-24-2023 Albumin [Mass/Vol] 4.2 g/dL 3.5 - 5.0 g/dL [facility] ALP [Catalytic activity/Vol] 74 U/L 38 - 126 U/L [facility] ALT [Catalytic activity/Vol] 20 U/L 0 - 34 U/L [facility] Anion gap [Moles/Vol] 10 mmol/L 3 - 13 mmol/L [facility] AST [Catalytic activity/Vol] 28 U/L 15 - 46 U/L [facility] Bilirubin [Mass/Vol] 0.7 mg/dL 0.2 - 1 .3 mg/dL [facility] Calcium [Mass/Vol] 9.4 mg/dL 8.4 - 10. 4 mg/dL [facility] Chloride [Moles/Vol] 100 mmol/L 98 - 10 7 mmol/L [facility] CO2 [Moles/Vol] 25 mmol/L 22 - 30 mmol/L [facility] Creatinine [Mass/Vol] 0.78 mg/dL 0.52 - 1.04 mg/dL [facility] GFR/1.73 sq M.predicted MDRD (S/P/Bld) [Vol rate/Area] - PINF [facility] Comment on above: Calculation based on the Chronic Kidney Disease Epidemiology Collaboration (CKD-EPI) equation refit without adjustment for race Glucose [Mass/Vol] 220 mg/dL High 70 - 100 mg/dL [facility] Interpretation and review of laboratory results Abnormal [facility] Potassium [Moles/Vol] 3.6 mmol/L 3.5 - 5.1 mmol/L [facility] Protein [Mass/Vol] 8.1 g/dL 6.3 - 8.2 g/dL [facility] Sodium [Moles/Vol] 135 mmol/L 135 - 145 mmol/L [facility] Urea nitrogen [Mass/Vol] 9 mg/dL 7 - 17 mg/dL [facility] ECG 12-LEADon 01-24-2023 ECG 12-LEAD IMPRESSION: SINUS RHYTHM VENTRICULAR PREMATURE COMPLEX CONSIDER LEFT VENTRICULAR HYPERTROPHY No previous ECG available for comparison Electronically Signed On 01-24-2023 11:21:48 EDT by Abdirizak Maldonado [facility] ED Nursing Noteon 01-24-2023 ED Nursing Note Patient to room 15 w ith c/o vomiting for 3 weeks. Patient reports being at [facility] and being told it was [facility], and there was nothing more they could do for her. Patient reports having Zofran at home that she doesn't take, because it has not relieved her symptoms. V/S obtained, call light within reach. Normal [facility] ED Provider Noteon 3 ED Provider Note [facility] ED EMERGENCY DEPARTMENT ENCOUNTER Pt Name: Ghislaine [...] - Normal (more content not included)... Normal [facility] Laboratory - Chemistry and C hemistry - challengeon 01-24-2023 Troponin I.cardiac [Mass/Vol] ng/mL 0.000 - 0.034 ng/mL [facility] [employer] Lipase [Catalytic activity/Vol] 130 U/L 23 - 300 U/L [facility] [employer] Magnesium [Mass/Vol] 1.8 mg/dL 1.6 - 2 .3 mg/dL [facility] Beta HCG ( test) Ql Negative Negative [facility] Comment on above: Please note: Very di lute urine specimens, as indicated by a low specific gravity, may not contain underwriting sales representative levels of hCG. If is still suspected, a first morning urine specimen should be collected 48 hours later and tested. Beta HCG ( test) Ql (U) is the most common reason for HCG in urine, although choriocarcinoma, hydatidiform mole, and certain nontrophoblastic malignancies also result in detectable urinary HCG levels. Sensitivity = 20mIU/mL. [facility] No Panel Informationon 01-24 P Casey -3 degrees [facility] MA Interval 128 ms [facility] QRS Casey -11 degrees [facility] QRSD Interval 86 ms [facility] QT Interval 396 ms [facility] QTC Interval 425 ms [facility] T Wave Casey 8 degrees [facility] SINUS RHYTHM VENTRICULAR PREMATURE COMPLEX CONSIDER LEFT VENTRICULAR HYPERTROPHY No previous ECG available for comparison Electronically Signed On 01-24-2023 11:21:48 EDT by Neva Marshallnathan, MD - 01/24/2023 IMPRESSION: SINUS RHYTHM VENTRICULAR PREMATURE COMPLEX CONSIDER LEFT VENTRICULAR HYPERTROPHY No previous ECG available for comparison Electronically Signed On 01-24-2023 11:21:48 EDT by Abdirizak Ramirez [facility] Interpretation and review of laboratory results Normal [facility] Troponin I.cardiac [Mass/Vol ]on 01-24-2023 Interpretation and review of laboratory results Normal [facility] Patients with high levels of Biotin oral intake (ie >5 mg/day) may have falsely decreased Troponin levels. [facility] Urinalysis complete panel (U )on 01-24-2023 Amorphous Crystals, Urine Few Abnormal Negative /HPF [facility] Bacteria LM.HPF (Urine sed) [#/Area] Few Abnormal Negative /HPF [facility] Bilirubin Ql (U) Negative Negative mg/dL [facility] Clarity (U) Turbid Abnormal Clear [facility] Color (U) Yellow Lt. Yellow [facility] Epithelial cells.squamous LM.HPF (Urine sed) [#/Area] 11-25 Abnormal [facility] h Glucose Ql (U) 500 mg/dL Abnormal Normal (<70) [facility] Hemoglobin Ql (U) Negative Negative mg/dL [facility] Interpretation and review of laboratory results Abnormal [facility] Ketones (U) [Mass/Vol] 20 mg/dL Abnormal Negative [facility] Leukocyte esterase Test strip Ql (U) 250 Abnormal Negative [place]/uL [facility] Mucus LM.HPF (Urine sed) [#/Area] Few Negative /LPF [facility] Nitrite Ql (U) Negative Negative [facility] th pH (U) 6.5 [pH] 5.0 - 8.0 pH [facility] Protein (U) [Mass/Vol] 20 mg/dL Abnormal Negative [facility] RBC LM.HPF (Urine sed) [#/Area] 0-2 [facility] Specific gravity (U) [Rel density] 1.016 1.005 - 1.030 [facility] Urobilinogen (U) [Mass/Vol] Normal Normal (0-1) mg/dL [facility] Volume, Urine 12 mL [facility] h WBC LM.HPF (Urine sed) [#/Area] 6-10 Abnormal [facility] Vital signson 01-24-2023 Heart rate 69 /min bpm [facility] CBC + DIFFon 01-17-2023 Baso # 0.00 x10EE3/UL Normal 0.00 - 0.10 [facility] Comment on above: Performed By: #### 2 [id number] #### [facility],[address] [place] [address] 68195 Basophils/100 WBC (Bld) 0.4 % Normal 0.0 - 2.0 [facility] Comment on above: Performed By: #### 2 89158 #### [facility],[address] [place] [address] 94496 CBC + DIFF Normal [facility] Comment on above: Result Comment: CBC- COMPLETE BLOOD COUNT Performed By: #### 2 08704 #### [facility],[address] [place] [address] 44018 EO # 0.00 x10EE3/UL Normal 0.00 - 0.50 [facility] Comment on above: Performed By: #### 2 20328 #### [facility],[address] [place] [address] 42266 Eosinophils/100 WBC (Bld) 0.3 % Normal 0.0 - 7.0 [facility] Comment on above: Performed By: #### 2 50619 #### [facility],[address] [place] [address] 08904 Erythrocyte distribution width (RBC) [Ratio] 15.2 % Normal 12.0 - 15.6 [facility] Comment on above: Performed By: #### 2 17989 #### [facility],[address] [place] [address] 60594 Hematocrit (Bld) [Volume fraction] 40.9 % Normal 34.0 - 46.0 [facility] Comment on above: Performed By: #### 2 31469 #### [facility],[address] [place] [address] 63194 Hemoglobin (Bld) [Mass/Vol] 13.6 g/dL Normal 12.0 - 16.0 [facility] Comment on above: Performed By: #### 2 15329 #### [facility],[address] [place] [address] Lymph # 3.30 x10EE3/UL High 0.80 - 2.80 [facility] Comment on above: Performed By: #### 2 30366 #### [facility],[address] [place] [address] Lymphocytes/100 WBC (Bld) 30.0 % Normal 20.0 - 45.0 [facility] Comment on above: Performed By: #### 2 80560 #### [facility],[address] [place] [address] MANUAL DIFF N/A Normal [facility] Comment on above: Performed By: #### 2 72669 #### [facility],[address] [place] [address] MCH (RBC) [Entitic mass] 27 pg Normal 27 - 33 [facility] Comment on above: Performed By: #### 2 57102 #### [facility],[address] [place] [address] MCHC 33 X10 3 Normal 32 - 36 [facility] Comment on above: Performed By: #### 2 27992 #### [facility],[address] [place] [address] MCV (RBC) [Entitic vol] 80 fL Normal 80 - 99 [facility] Comment on above: Performed By: #### 2 16866 #### [place] [address] [place]xton # 0.80 x10EE3/UL Normal 0.20 - 1.00 [facility] Comment on above: Performed By: #### 2 54226 #### [place] [address] MONOS % 7.6 % Normal 0.0 - 10.0 [facility] Comment on above: Performed By: #### 2 27585 #### [facility],[address] [place] [address] 92627 Morphology Franky (Bld) [Interp] N/A Normal [facility] Comment on above: Performed By: #### 2 97286 #### [facility],[address] [place] [address] 15627 Neut # 6.80 x10EE3/UL Normal 1.50 - 7.10 [facility] Comment on above: Performed By: #### 2 29017 #### [place] [address] Neutrophils/100 WBC (Bld) 61.7 % Normal 46.0 - 76.0 [facility] Comment on above: Performed By: #### 2 61887 #### [facility],[address] [place] [address] PLATELET 504 x10EE3/UL High 150 - 450 [facility] Comment on above: Performed By: #### 2 34670 #### [facility],[address] [place] [address] Platelet mean volume (Bld) [Entitic vol] 7.2 fL Normal 6.6 - 10.5 [facility] Comment on above: Result Comment: AUTO MATED DIFFERENTIAL Performed By: #### 2 18208 #### [facility],[address] [place] [address] 44416 RBC 5.14 x 10EE6/UL Normal 4.10 - 5.30 [facility] Comment on above: Performed By: #### 2 68427 #### [place] [id number] WBC 11.1 x 10EE3/UL High 4.5 - 10.8 [facility] Comment on above: Performed By: #### 2 89062 #### [facility],[address] [place] [address] CMP with eGFRon 01-17-2023 AGE 32 years Normal [facility] Comment on above: Performed By: #### 2 41104 #### [facility],[address] [place] [address] 42359 Albumin [Mass/Vol] 3.6 g/dL Normal 3.4 - 5.0 [facility] Comment on above: Performed By: #### 2 78294 #### [facility],[address] [place], [place] [phone] Albumin/Globulin [Mass ratio] 0.7 {ratio} Low 0.9 - 1.6 [facility] Comment on above: Performed By: #### 2 42716 #### [facility],[address] [place] [address] 35187 ALK PHOS 73 U/L Normal 46 - 116 [facility] Comment on above: Performed By: #### 2 49701 #### [facility],[address] [place] [address] 45848 ALT [Catalytic activity/Vol] 21 U/L Normal 14 - 59 [facility] Comment on above: Performed By: #### 2 14196 #### [facility],[address] [place] [address] 80108 Anion gap [Moles/Vol] 17 mmol/L Normal 10 - 20 [facility] Comment on above: Performed By: #### 2 31843 #### [facility],[address] [place] [address] 66782 AST [Catalytic activity/Vol] 12 U/L Low 13 - 39 [facility] Comment on above: Performed By: #### 2 86731 #### [address] [address] B/C RATIO 9 ratio Normal 0 - 30 [facility] Comment on above: Performed By: #### 2 58863 #### [facility],[address] [place] [address] 41180 Bilirubin [Mass/Vol] 0.7 mg/dL Normal 0.2 - 1.0 [facility] Comment on above: Performed By: #### 2 57281 #### [facility],[address] [place], [place] [phone] Calcium [Mass/Vol] 9.1 mg/dL Normal 8.5 - 10.1 [facility] Comment on above: Performed By: #### 2 35693 #### [facility],[address] [place], [place] [phone] Chloride [Moles/Vol] 98 mmol/L Normal 98 - 107 [facility] Comment on above: Performed By: #### 2 86813 #### [facility],[address] [place] [address] CMP with eGFR Normal [facility] Comment on above: Result Comment: COMP REHENSIVE METABOLIC PANEL Performed By: #### 2 11032 #### [facility],[address] [place], [place] [phone] CO2 [Moles/Vol] 23.6 mmol/L Normal 21.0 - 32.0 [facility] Comment on above: Performed By: #### 2 94839 #### [facility],[address] [place], [place] [phone] Creatinine [Mass/Vol] 1.10 mg/dL High 0.55 - 1.02 [facility] Comment on above: Performed By: #### 2 21276 #### [facility],[address] [place], [place] [phone] eGFR 58 ML/MINUTE Low 60 - 999 [facility] Comment on above: Performed By: #### 2 77779 #### [facility],[address] [place] [address] 03061 GFR/1.73 sq M.predicted among non-blacks MDRD (S/P/Bld) [Vol rate/Area] mL/min/{1.73_m2} Normal 60 - 999 [facility] Comment on above: Result Comment: ACCO RDING TO THE NATIONAL KIDNEY DISEASE EDUCATION PROGRAM(NKDE), A NORMAL eGFR IS A VALUE GREATER THAN OR EQUAL TO 60 ML/MIN/1.73 SQ METERS. CHRONIC KIDNEY DISEASE: <60mL/MIN/1.73 SQ METERS KIDNEY FAILURE: <15mL/MIN/1.73 SQ METERS THIS TEST SHOULD ONLY BE USED FOR PATIENTS 18 YEARS OF AGE AND OLDER. Performed By: #### 2 30613 #### [facility],[address] [place] [address] 88319 Globulin (S) [Mass/Vol] 5.1 g/dL High 1.5 - 3.8 [facility] Comment on above: Performed By: #### 2 55194 #### [facility],[address] [place] [address] 63492 Glucose [Mass/Vol] 191 mg/dL High 74 - 106 [facility] Comment on above: Performed By: #### 2 81055 #### [facility],[address] [place] [address] 21097 Potassium [Moles/Vol] 3.7 mmol/L Normal 3.5 - 5.1 [facility] Comment on above: Performed By: #### 2 46199 #### [facility],[address] [place] [address] 69075 Protein [Mass/Vol] 8.7 g/dL High 6.4 - 8.2 [facility] Comment on above: Performed By: #### 2 40167 #### [facility],[address] [place] [address] 79913 Sodium [Moles/Vol] 135 mmol/L Low 136 - 145 [facility] Comment on above: Performed By: #### 2 40709 #### [facility],[address] [place] [address] 75772 Urea nitrogen [Mass/Vol] 10 mg/dL Normal 7 - 18 [facility] Comment on above: Performed By: #### 2 55896 #### [facility],[address] [place] [address] ABDOMEN/PELVIS Won 2022 CT ABDOMEN/PELVIS W [address] [address] Patient: GHISLAINE GIVENS Phone#: : 1990 Age: 32 Gender: F Pt. Type: ER Account: [id number] Location: [facility] Ordering: GERALDINE ROLAND Exam Date: 01/17/2023/8:31 Family Phys: Charge Code: [id number] Physician: Irwin Order #: [id number] Dose#: PROCEDURE: CT ABDOMEN/PELVIS WITH CONTRAST COMPARISON: [facility], ABDOMEN/PELVIS W CON, 01/24/2022, 18:58. INDICATIONS: [...] 32 Gender: F Pt. Type: ER Account: [id number] Location: 052 Ordering: GERALDINE ROLAND Exam Date: 01/17/2023/8:31 Family Phys: Charge Code: 629250 Physician: Irwin Order #: [id number] Dose#: OTHER: Negative. CONCLUSION: 1. UNDER FILLING VERSUS MUCOSAL THICKENING AT THE RECTOSIGMOID COLON. Dictated by: Cristy Penaloza MD on 01/17/2023 at 9:14 Approved by: Cristy Penaloza MD on 01/17/2023 at 9:19 Normal [facility] DRUG SCREEN URINE [employer]Con AMPHETAMINES [facility] Comment on above: Performed By: #### 2 20898 #### [facility],[address] [place] [address] B-DIAZEPINES [facility] Comment on above: Performed By: #### 2 70914 #### [facility],[address] [place] [address] 16138 BARBITURATES [facility] Comment on above: Performed By: #### 2 08381 #### [facility],[address] [place] [address] 36494 COCAINE [facility] Comment on above: Performed By: #### 2 48848 #### [facility],[address] [place] [address] 05733 DRUG SCREEN URINE MEDIC Normal [facility] Comment on above: Result Comment: DRUG SCREEN - URINE Performed By: #### 2 85263 #### [facility],[address] [place] [address] 26000 METHADONE [facility] Comment on above: Performed By: #### 2 60254 #### [facility],[address] [place] [address] 32778 OPIATES [facility] Comment on above: Performed By: #### 2 [id number] #### [facility],[address] [place] [address] [id number] PCP Negative Normal [facility] Comment on above: Performed By: #### 2 [id number] #### [facility],[address] [place] [address] [id number] THC Positive Normal [facility] Comment on above: Result Comment: ERASTO ENTS RECEIVING PROTON PUMP INHIBITORS MAY DEMONSTRATE FALSE POSITIVE THC/CANNABINOID RESULTS. AN ALTERNATIVE CONFIRMATORY METHOD SHOULD BE CONSIDERED TO VERIFY POSITIVE RESULTS. Performed By: #### 2 [id number] #### [facility],[address] [place] [address] [id number] LIPASEon 01-17-2023 Lipase [Catalytic activity/Vol] 143.0 U/L Normal 73.0 - 393 [facility] Comment on above: Performed By: #### 2 [id number] #### [facility],[address] [place] [address] [id number] SERUM QUALon 01-17 EXTERNAL QC DONE? YES Normal [facility] Comment on above: Performed By: #### 2 [id number] #### [facility],[address] [place] [address] INTERNAL QC PASS Normal [facility] Comment on above: Performed By: #### 2 [id number] #### [facility],[address] [place] [address] [id number] SER Negative Normal NEGATIVE [facility] Comment on above: Performed By: #### 2 [id number] #### [facility],[address] [place] [address] [id number] URINALYSISon 01-17-2023 Amorphous NONE Normal [facility] Comment on above: Performed By: #### 2 [id number] #### [facility],[address] [place] [address] 17137 Bacteria 1+ Normal [facility] Comment on above: Performed By: #### 2 [id number] #### [facility],[address] [place] [address] [id number] Bilirubin Ql (U) Negative Normal NORMAL: NEGATIVE [facility] Comment on above: Performed By: #### 2 [id number] #### [facility],[address] [place] [address] [id number] Casts NONE Normal [facility] Comment on above: Performed By: #### 2 [id number] #### [facility],[address] [place] [address] 61690 Clarity (U) clear Normal NORMAL: CLEAR [facility] Comment on above: Performed By: #### 2 [id number] #### [facility],[address] [place] [address] 14630 Color (U) p.yel Normal NORMAL: YELLOW [facility] Comment on above: Performed By: #### 2 [id number] #### [facility],[address] [place] [address] 24224 Crystals LM Nom (Urine sed) NONE Normal [facility] Comment on above: Performed By: #### 2 [id number] #### [facility],[address] [place] [address] 79071 Epi Cells MODERATE Normal [facility] Comment on above: Performed By: #### 2 [id number] #### [facility],[address] [place] [address] 33883 Glucose Ql (U) 50 Abnormal NORMAL: NORMAL [facility] Comment on above: Performed By: #### 2 [id number] #### [facility],[address] [place] [address] 26782 Hemoglobin Ql (U) Negative Normal NORMAL: NEGATIVE [facility] Comment on above: Performed By: #### 2 [id number] #### [facility],[address] [place] [address] 51046 Ketone 15 Abnormal NORMAL: NEGATIVE [facility] Comment on above: Performed By: #### 2 [id number] #### [facility],[address] [place] [address] [id number] Leukocytes 100 Abnormal NORMAL: NEGATIVE [facility] Comment on above: Performed By: #### 2 [id number] #### [facility],[address] [place] [address] Mucous NONE Normal [facility] Comment on above: Performed By: #### 2 [id number] #### [facility],[address] [place] [address] Nitrite Ql (U) Negative Normal NORMAL: NEGATIVE [facility] Comment on above: Performed By: #### 2 [id number] #### [facility],[address] [place] [address] pH (U) 7 [pH] Normal NORMAL: 5.0-8.0 [facility] Comment on above: Performed By: #### 2 [id number] #### [facility],[address] [place] [address] Protein Ql (U) Negative Normal NORMAL: NEGATIVE [facility] Comment on above: Performed By: #### 2 [id number] #### [facility],[address] [place] [address] Rbc NONE Normal 0-3/hpf [facility] Comment on above: Performed By: #### 2 [id number] #### [facility],[address] [place] [address] Sp Zephyr 1.005 Low NORMAL: 1.010-1.030 [facility] Comment on above: Performed By: #### 2 [id number] #### [facility],[address] [place] [address] Specimen Type UNSPECIFIED Normal [facility] Comment on above: Performed By: #### 2 [id number] #### [facility],[address] [place] [address] Urinalysis dipstick W Reflex Microscopic panel (U) SEE BELOW Normal [facility] Comment on above: Result Comment: MICR OSCOPIC Performed By: #### 2 [id number] #### [facility],[address],[place] [address] Urobilinog NORM Normal NORMAL: NORMAL [facility] Comment on above: Performed By: #### 2 [id number] #### [facility],[address] [place] [address] 33473 Wbc 1-5 Normal 0-5/hpf [facility] Comment on above: Performed By: #### 2 [id number] #### [facility],[address] [place] [address] Yeast NONE Normal [facility] Comment on above: Performed By: #### 2 [id number] #### [facility],[address] [place] [address] Absolute lymphocyte countOrd ered By: Lexus Villatoro on 01-15-2023 Lymphocytes Auto (Unsp spec) [#/Vol] 3.20 10*3/uL 0.83-4.51 [facility] Basophil percentageOrdered B y: Lexus Villatoro on 01-15-2023 Basophil percentage 154 mg/dL 74-106 [facility] Basophil percentage 7.1 g/dL 6.4-8.2 [facility] Basophil percentage 0.60 mg/dL 0.20-1.00 [facility] Basophil percentage 136 mmol/L 136-145 [facility] Basophil percentage 3.1 mmol/L 3.5-5.1 [facility] Basophil percentage 105 mmol/L 98-107 [facility] Basophils (Bld) [#/Vol] 9.4 10*3/uL 4.4-11.0 [facility] Basophils (Bld) [#/Vol] 5.3 10*3/uL 2.0-7.7 [facility] Basophils/100 WBC (Bld) 0.3 % 0-1 [facility] Basophils/100 WBC (Bld) 56.4 % 47-70 [facility] Bilirubin [Mass/Vol] 0.60 mg/dL 0.20-1.00 [facility] Comment on above: For patients on eltr ombopag therapy, use of [employer] [place] TBIL is not recommended. Chloride [Moles/Vol] 105 mmol/L 98-[address] [facility] Eosinophils/100 WBC (Bld) 0.3 % 0-5 [facility] Glucose [Mass/Vol] 154 mg/dL 74-106 [facility] Comment on above: Fasting Glucose resu lt greater than or equal to 126 mg/dL suggests DIABETES MELLITUS per A.D.A. criteria. Neutrophils (Bld) [#/Vol] 5.3 10*3/uL 2.0-7.7 [facility] Neutrophils/100 WBC (Bld) 56.4 % 47-70 [facility] Potassium [Moles/Vol] 3.1 mmol/L 3.5-5.1 [facility] Protein [Mass/Vol] 7.1 g/dL 6.4-8.2 [facility] Sodium [Moles/Vol] 136 mmol/L 136-145 [facility] WBC (Bld) [#/Vol] 9.4 10*3/uL 4.4-11.0 [facility] Blood erythrocytes count (nu mber/volume)Ordered By: Lexus Villatoro on 01-15-2023 RBC (Bld) [#/Vol] 4.43 10*6/uL 4.2-5.4 [facility] Blood hemoglobin measurement (mass/volume)Ordered By: Lexus Villatoro on 01-15-2023 Hemoglobin (Bld) [Mass/Vol] 11.7 g/dL 12.0-15.0 [facility] Blood lymphocytes/100 leukoc ytesOrdered By: Lexus Villatoro on 01-15-2023 Lymphocytes/100 WBC (Bld) 34.2 % 19-41 [facility] Blood monocytes/100 leukocyt esOrdered By: Lexus Villatoro on 01-15-2023 Monocytes/100 WBC (Bld) 8.2 % 0-10 [facility] Blood platelet mean volumeOr dered By: Lexus Villatoro on 01-15-2023 Platelet mean volume (Bld) [Entitic vol] 9.3 fL 6.2-12.0 [facility] Determination of erythrocyte mean corpuscular volume (MCV)Ordered By: Lexus Villatoro on 01-15-2023 MCV (RBC) [Entitic vol] 80.4 fL 81-99 [facility] Glucose Glucometer (BldC) [M ass/Vol]Ordered By: Lexus Villatoro on 01-15-2023 Glucose [Mass/Vol] 247 mg/dL 74-106 [facility] Comment on above: MANAGEMENT OF PATIEN T CARE PER NURSING PROTOCOL Hematocrit Auto (Bld) [Volum e fraction]Ordered By: Lexus Villatoro on 01-15-2023 Hematocrit (Bld) [Volume fraction] 35.6 % 37-47 [facility] Laboratory - Chemistry and C hemistry - challengeOrdered By: Lexus Villatoro on 01-15-2023 ALP [Catalytic activity/Vol] 54 U/L 45-117 [facility] ALT [Catalytic activity/Vol] 14 U/L 13-56 [facility] CO2 [Moles/Vol] 26.0 mmol/L 21.0-32.0 [facility] Globulin (S) [Mass/Vol] 4.1 g/dL 2.2-4.2 [facility] Magnesium [Mass/Vol] 2.0 mg/dL 1.6-2.6 [facility] Urea nitrogen/Creatinine [Mass ratio] 6.6 mg/mg 10-20 [facility] - Hematology and Cell countsOrdered By: Lexus Villatoro on 01-15-2023 Erythrocyte distribution width (RBC) [Entitic vol] 40.1 fL 35.1-43.9 [facility] Erythrocyte distribution width (RBC) [Ratio] 13.8 % 11.6-14.6 [facility] Immature granulocytes/100 WBC (Bld) 0.600 % 0.0-0.9 [facility] Comment on above: IG% - Immature Granu locytes (promyelocytes, myelocytes and metamyelocytes) > 1% indicates that a LEFT SHIFT is Present. MCH (RBC) [Entitic mass] 26.4 pg 27.0-32.0 [facility] Nucleated RBC/100 WBC (Bld) [Ratio] 0 % 0-5 [facility] MCHC Auto (RBC) [Mass/Vol]Or dered By: Lexus Villatoro on 01-15-2023 MCHC (RBC) [Mass/Vol] 32.9 g/dL 32-36 [facility] No Panel InformationOrdered By: Lexus Villatoro on 01-15-2023 Estimated Creatinine Clearance Calc 84.62 ml/min [facility] Estimated GFR (MDRD) Amer 93 mL/min >60 [facility] Comment on above: GFR Calc Estimated GFR (MDRD) Non-Af Amer 77 mL/min >60 [facility] Comment on above: Non- GFR Calc Thyroid Stimulating Hormone (TSH) 2.30 uIU/mL 0.358-3.74 [facility] 26.4 pg 27.0-32.0 [facility] 13.8 % 11.6-14.6 [facility] 40.1 fl 35.1-43.9 [facility] 0.600 % 0.0-0.9 [facility] 0 % 0-5 [facility] 77 mL/min >60 [facility] 93 mL/min >60 [facility] 84.62 ml/min [facility] 6.6 RATIO 10-20 [facility] 4.1 g/dL 2.2-4.2 [facility] 54 U/L 45-117 [facility] 14 U/L 13-56 [facility] 2.0 mg/dL 1.6-2.6 [facility] 26.0 mmol/L 21.0-32.0 [facility] 2.30 uIU/mL 0.358-3.74 [facility] Platelets bldOrdered By: Porsche Villatoro on 01-15-2023 Platelets (Bld) [#/Vol] 361 10*3/uL 150-450 [facility] Serum or plasma albumin hussein urement (mass/volume)Ordered By: Lexus Villatoro on 01-15-2023 Albumin [Mass/Vol] 3.0 g/dL 3.2-5.0 [facility] Serum or plasma albumin/glob ulin mass ratioOrdered By: Lexus Villatoro on 01-15-2023 Albumin/Globulin [Mass ratio] 0.7 {ratio} 0.9-2.4 [facility] Serum or plasma calcium hussein urement (mass/volume)Ordered By: Lexus Villatoro on 01-15-2023 Calcium [Mass/Vol] 8.2 mg/dL 8.5-10.1 [facility] Serum or plasma creatinine m easurement (mass/volume)Ordered By: Lexus Villatoro on 01-15-2023 Creatinine [Mass/Vol] 0.91 mg/dL 0.55-1.02 [facility] Comment on above: The validity of the calculated GFR & GFRAA in patients over 70 years has not been determined. Clinical correlation is essential. Serum or plasma urea nitroge n measurement (mass/volume)Ordered By: Lexus Villatoro on 01-15-2023 Urea nitrogen [Mass/Vol] 6 mg/dL 7-18 [facility] Thin prep Papanicolaou smear with manual screeningOrdered By: Lexus Villatoro on 01-15-2023 Thin prep Papanicolaou smear with manual screening 13 U/L 15-37 [facility] Thin prep Papanicolaou smear with manual screening 5 5-15 [facility] Bacteria identified Cx Nom ( U)Ordered By: Willie Dhillon on 01-14-2023 Culture, urine Positive [facility] Basophil percentageOrdered B y: Willie Dhillon on 01-14-2023 Basophil percentage 1.3 mmol/L 0.4-2.0 [facility] Lactate [Moles/Vol] 1.3 mmol/L 0.4-2.0 [facility] Basophil percentage 0-5 SEEN /hpf 0-5 [facility] [place] Beta hCG serum qualOrdered B y: Willie Dhillon on 01-14-2023 Beta HCG ( test) Ql Negative [facility] Bilirubin Test strip Ql (U)O rdered By: Willie Dhillon on 01-14-2023 Bilirubin Ql (U) Negative Negative [facility] Culture, urineOrdered By: Reji March on 01-14-2023 Bacteria identified Cx Nom (U) Positive [facility] Ketones Test strip Ql (U)Ord ered By: Willie Dhillon on 01-14-2023 Ketones Ql (U) 5 mg/dl Negative [facility] Laboratory - Drug toxicology Ordered By: Lexus Villatoro on 01-14-2023 Amphetamines Ql (U) Negative <1000 ng/mL [facility] Benzodiazepines Ql (U) Negative < 200 ng/mL [facility] Cannabinoids Screen Ql (U) Positive < 50 ng/mL [facility] Cocaine Ql (U) Negative < 300 ng/mL [facility] Opiates Ql (U) Negative < 300 ng/mL [facility] Mucus LM Ql (Urine sed)Order ed By: Willie Dhillon on 01-14-2023 Mucus Ql (Urine sed) 0 SEEN /hpf [facility] Nitrite Test strip Ql (U)Ord ered By: Willie Dhillon on 01-14-2023 Nitrite Ql (U) Negative Negative [facility] No Panel InformationOrdered By: Lexus Villatoro on 01-14-2023 MDMA (Ecstasy) Screen Negative < 500 ng/mL [facility] [place] Urine Barbiturates Screen Negative < 200 ng/mL [facility] Urine Drug Screen Comment [facility] Comment on above: CONFIRMATORY TESTING FOR [...] Urine Methadone Screen Negative < 300 ng/mL [facility] Negative < 300 ng/mL [facility] Positive < 50 ng/mL [facility] Protein Test strip Ql (U)Ord ered By: Willie Dhillon on 01-14-2023 Protein Ql (U) 15 mg/dl Negative [facility] Squamous epithelial cells de tection in urine sediment by light microscopyOrdered By: Willie Dhillon on 01-14-2023 Epithelial cells.squamous LM Ql (Urine sed) 0-5 SEEN /hpf 5-10 [facility] Urine blood detectionOrdered By: Willie Dhillon on 01-14-2023 RBC Ql (U) 10 /ul Negative [facility] RBC Ql (U) 0-5 SEEN /hpf 0-5 [facility] Urine clarityOrdered By: Heath Dhillon on 01-14-2023 Clarity (U) Clear Clear [facility] Urine color determinationOrd ered By: Willie Dhillon on 01-14-2023 Color (U) Yellow Yellow [facility] Urine glucose detectionOrder ed By: Willie Dhillon on 01-14-2023 Glucose Ql (U) 250 mg/dl Normal [facility] Urine leukocyte esterase det ection by dipstickOrdered By: Willie Dhillon on 01-14-2023 Leukocyte esterase Test strip Ql (U) 25 /ul Negative [facility] Urine pHOrdered By: Willie mo on 01-14-2023 pH (U) 8.0 [pH] 5.0 - 8.0 [facility] Urine phencyclidine (PCP) de tectionOrdered By: Lexus Villatoro on 01-14-2023 Phencyclidine Ql (U) Negative < 25 ng/mL [facility] Urine sediment bacteria coun t by microscopy (number/high power field)Ordered By: Willie Dhillon on 01-14-2023 Bacteria LM.HPF (Urine sed) [#/Area] RARE /hpf None Seen [facility] Urine specific gravity measu rementOrdered By: Willie Dhillon on 01-14-2023 Specific gravity (U) [Rel density] 1.015 1.002-1.030 [facility] Urobilinogen Auto test strip Ql (U)Ordered By: Willie Dhillon on 01-14-2023 Urobilinogen Ql (U) Normal mg/dl Normal [facility] Basophil percentageOrdered B y: Deann Guerrero on 01-13-2023 Basophil percentage 25-50 SEEN /hpf 0-5 [facility] Basophil percentage 235 mg/dL 74-106 [facility] Basophil percentage 137 mmol/L 136-145 [facility] Basophil percentage 3.2 mmol/L 3.5-5.1 [facility] Basophil percentage 107 mmol/L 98-107 [facility] Chloride [Moles/Vol] 107 mmol/L 98-107 [facility] Glucose [Mass/Vol] 235 mg/dL 74-106 [facility] Comment on above: Glucose result great er than or equal to 200 mg/dLsuggests DIABETES MELLITUS per A.D.A. criteria. Potassium [Moles/Vol] 3.2 mmol/L 3.5-5.1 [facility] Sodium [Moles/Vol] 137 mmol/L 136-145 [facility] Beta hCG serum qualOrdered B y: Deann Guerrero on 01-13-2023 Beta HCG ( test) Ql Negative [facility] Bilirubin Test strip Ql (U)O rdered By: Deann Guerrero on 01-13-2023 Bilirubin Ql (U) Negative Negative [facility] Ketones Test strip Ql (U)Ord ered By: Deann Guerrero on 01-13-2023 Ketones Ql (U) 15 mg/dl Negative [facility] Laboratory - Chemistry and C hemistry - challengeOrdered By: Deann Guerrero on 01-13-2023 CO2 [Moles/Vol] 23.0 mmol/L 21.0-32.0 [facility] Urea nitrogen/Creatinine [Mass ratio] 7.6 mg/mg 10- [facility] Mucus LM Ql (Urine sed)Order ed By: Deann Guerrero on 01-13-2023 Mucus Ql (Urine sed) 1+ /hpf [facility] Nitrite Test strip Ql (U)Ord ered By: Deann Guerrero on 01-13-2023 Nitrite Ql (U) Negative Negative [facility] No Panel InformationOrdered By: Deann Guerrero on 01-13-2023 Estimated Creatinine Clearance Calc 73.34 ml/min [facility] Estimated GFR (MDRD) Amer 79 mL/min >60 [facility] Comment on above: GFR Calc Estimated GFR (MDRD) Non-Af Amer 65 mL/min >60 [facility] Comment on above: Non- GFR Calc 65 mL/min >60 [facility] 79 mL/min >60 [facility] 73.34 ml/min [facility] 7.6 RATIO 04-30 [facility] 23.0 mmol/L 21.0-32.0 [facility] Protein Test strip Ql (U)Ord ered By: Deann Guerrero on 01-13-2023 Protein Ql (U) 30 mg/dl Negative [facility] Serum or plasma calcium hussein urement (mass/volume)Ordered By: Deann Guerrero on 01-13-2023 Calcium [Mass/Vol] 8.5 mg/dL 8.5-10.1 [facility] Serum or plasma creatinine m easurement (mass/volume)Ordered By: Deann Guerrero on 01-13-2023 Creatinine [Mass/Vol] 1.05 mg/dL 0.55-1.02 [facility] Comment on above: The validity of the calculated GFR & GFRAA in patients over 70 years has not been determined. Clinical correlation is essential. Serum or plasma urea nitroge n measurement (mass/volume)Ordered By: Deann Guerrero on 01-13-2023 Urea nitrogen [Mass/Vol] 8 mg/dL 7-18 [facility] Squamous epithelial cells de tection in urine sediment by light microscopyOrdered By: Deann Guerrero on 01-13-2023 Epithelial cells.squamous LM Ql (Urine sed) 5-10 SEEN /hpf 5-10 [facility] Thin prep Papanicolaou smear with manual screeningOrdered By: Deann Guerrero on 01-13-2023 Thin prep Papanicolaou smear with manual screening 7 5-15 [facility] Urine blood detectionOrdered By: Deann Guerrero on 01-13-2023 RBC Ql (U) 10 /ul Negative [facility] RBC Ql (U) 0-5 SEEN /hpf 0-5 [facility] Urine clarityOrdered By: Sulema Guerrero on 01-13-2023 Clarity (U) Sl. Cloudy Clear [facility] Urine color determinationOrd ered By: Deann Guerrero on 01-13-2023 Color (U) Yellow Yellow [facility] Urine glucose detectionOrder ed By: Deann Guerrero on 01-13-2023 Glucose Ql (U) 250 mg/dl Normal [facility] Urine leukocyte esterase det ection by dipstickOrdered By: Deann Guerrero on 01-13-2023 Leukocyte esterase Test strip Ql (U) 500 /ul Negative [facility] Urine pHOrdered By: Deann Guerrero on 01-13-2023 pH (U) 6.0 [pH] 5.0 - 8.0 [facility] Urine sediment bacteria coun t by microscopy (number/high power field)Ordered By: Deann Guerrero on 01-13-2023 Bacteria LM.HPF (Urine sed) [#/Area] 1 /[HPF] None Seen [facility] Urine specific gravity measu rementOrdered By: Deann Guerrero on 01-13-2023 Specific gravity (U) [Rel density] 1.020 1.002-1.030 [facility] Urobilinogen Auto test strip Ql (U)Ordered By: Deann Guerrero on 01-13-2023 Urobilinogen Ql (U) 1 mg/dl Normal [facility] Absolute lymphocyte countOrd ered By: Perico Norman on 01-12-2023 Lymphocytes Auto (Unsp spec) [#/Vol] 1.80 10*3/uL 0.83-4.51 [facility] Basophil percentageOrdered B y: Fabricio Guevara on 01-12-2023 Basophil percentage 208 mg/dL 74-106 [facility] Basophil percentage 137 mmol/L 136-145 [facility] Basophil percentage 3.0 mmol/L 3.5-5.1 [facility] Basophil percentage 105 mmol/L 98-107 [facility] Chloride [Moles/Vol] 105 mmol/L 98-107 [facility] Glucose [Mass/Vol] 208 mg/dL 74-106 [facility] Comment on above: Glucose result great er than or equal to 200 mg/dLsuggests DIABETES MELLITUS per A.D.A. criteria. Potassium [Moles/Vol] 3.0 mmol/L 3.5-5.1 [facility] Sodium [Moles/Vol] 137 mmol/L 136-145 [facility] Basophil percentageOrdered B y: Perico Norman on 01-12-2023 Basophil percentage 267 mg/dL 74-106 [facility] Basophil percentage 7.8 g/dL 6.4-8.2 [facility] Basophil percentage 0.40 mg/dL 0.20-1.00 [facility] Basophil percentage 134 mmol/L 136-145 [facility] Basophil percentage 3.4 mmol/L 3.5-5.1 [facility] Basophil percentage 101 mmol/L 98-107 [facility] Basophils (Bld) [#/Vol] 12.4 10*3/uL 4.4-11.0 [facility] Basophils (Bld) [#/Vol] 9.9 10*3/uL 2.0-7.7 [facility] Basophils/100 WBC (Bld) 0.3 % 0-1 [facility] Basophils/100 WBC (Bld) 79.6 % 47-70 [facility] Basophils/100 WBC (Bld) 0.0 % 0-5 [facility] Bilirubin [Mass/Vol] 0.40 mg/dL 0.20-1.00 [facility] Comment on above: For patients on eltr ombopag therapy, use of [employer] [place] TBIL is not recommended. Chloride [Moles/Vol] 101 mmol/L 98-107 [facility] Eosinophils/100 WBC (Bld) 0.0 % 0-5 [facility] Glucose [Mass/Vol] 267 mg/dL 74-106 [facility] Comment on above: Glucose result great er than or equal to 200 mg/dLsuggests DIABETES MELLITUS per A.D.A. criteria. Neutrophils (Bld) [#/Vol] 9.9 10*3/uL 2.0-7.7 [facility] Neutrophils/100 WBC (Bld) 79.6 % 47-70 [facility] Potassium [Moles/Vol] 3.4 mmol/L 3.5-5.1 [facility] Protein [Mass/Vol] 7.8 g/dL 6.4-8.2 [facility] Sodium [Moles/Vol] 134 mmol/L 136-145 [facility] WBC (Bld) [#/Vol] 12.4 10*3/uL 4.4-11.0 [facility] Blood erythrocytes count (nu mber/volume)Ordered By: Perico Norman on 01-12-2023 RBC (Bld) [#/Vol] 4.62 10*6/uL 4.2-5.4 [facility] Blood hemoglobin measurement (mass/volume)Ordered By: Perico Norman on 01-12-2023 Hemoglobin (Bld) [Mass/Vol] 12.1 g/dL 12.0-15.0 [facility] Blood lymphocytes/100 leukoc ytesOrdered By: Perico Norman on 01-12-2023 Lymphocytes/100 WBC (Bld) 14.5 % 19-41 [facility] Blood monocytes/100 leukocyt esOrdered By: Perico Norman on 01-12-2023 Monocytes/100 WBC (Bld) 5.0 % 0-10 [facility] Blood platelet mean volumeOr dered By: Perico Norman on 01-12-2023 Platelet mean volume (Bld) [Entitic vol] 9.0 fL 6.2-12.0 [facility] Determination of erythrocyte mean corpuscular volume (MCV)Ordered By: Perico Norman on 01-12-2023 MCV (RBC) [Entitic vol] 81.0 fL 81-99 [facility] Direct bilirubinOrdered By: Perico Norman on 01-12-2023 Bilirubin.direct [Mass/Vol] 0.14 mg/dL 0.00-0.30 [facility] Hematocrit Auto (Bld) [Volum e fraction]Ordered By: Perico Norman on 01-12-2023 Hematocrit (Bld) [Volume fraction] 37.4 % 37-47 [facility] - Chemistry and C hemistry - challengeOrdered By: Fabricio Guevara on 01-12-2023 CO2 [Moles/Vol] 26.0 mmol/L 21.0-32.0 [facility] Urea nitrogen/Creatinine [Mass ratio] 7.0 mg/mg 10 [facility] - Chemistry and C hemistry - challengeOrdered By: Perico Norman on 01-12-2023 ALP [Catalytic activity/Vol] 68 U/L 45-117 [facility] ALT [Catalytic activity/Vol] 14 U/L 13-56 [facility] CO2 [Moles/Vol] 24.0 mmol/L 21.0-32.0 [facility] Globulin (S) [Mass/Vol] 4.5 g/dL 2.2-4.2 [facility] Lipase [Catalytic activity/Vol] 37 U/L 13-75 [facility] Comment on above: Please note:LIPASE r evised reference range effective 22. New Lipase methodology. Expected to produce lower values than the previous assay method. NEW Reference Range: 13 - 75 U/L Urea nitrogen/Creatinine [Mass ratio] 9.7 mg/mg 10-20 [facility] - Hematology and Cell countsOrdered By: Perico Norman on 01-12-2023 Erythrocyte distribution width (RBC) [Entitic vol] 38.9 fL 35.1-43.9 [facility] Erythrocyte distribution width (RBC) [Ratio] 13.7 % 11.6-14.6 [facility] Immature granulocytes/100 WBC (Bld) 0.600 % 0.0-0.9 [facility] Comment on above: IG% - Immature Granu locytes (promyelocytes, myelocytes and metamyelocytes) > 1% indicates that a LEFT SHIFT is Present. MCH (RBC) [Entitic mass] 26.2 pg 27.0-32.0 [facility] Nucleated RBC/100 WBC (Bld) [Ratio] 0 % 0-5 [facility] MCHC Auto (RBC) [Mass/Vol]Or dered By: Perico Norman on 01-12-2023 MCHC (RBC) [Mass/Vol] 32.4 g/dL 32-36 [facility] No Panel InformationOrdered By: Fabricio Guevara on 01-12-2023 Estimated Creatinine Clearance Calc 77.01 ml/min [facility] Estimated GFR (MDRD) Amer 84 mL/min >60 [facility] Comment on above: GFR Calc Estimated GFR (MDRD) Non-Af Amer 69 mL/min >60 [facility] Comment on above: Non- GFR Calc 69 mL/min >60 [facility] 84 mL/min >60 [facility] 77.01 ml/min [facility] 7.0 RATIO 10-20 [facility] 26.0 mmol/L 21.0-32.0 [facility] No Panel InformationOrdered By: Perico Norman on 01-12-2023 Estimated Creatinine Clearance Calc 68.15 ml/min [facility] Estimated GFR (MDRD) Amer 72 mL/min >60 [facility] Comment on above: GFR Calc Estimated GFR (MDRD) Non-Af Amer 60 mL/min >60 [facility] Comment on above: Non- GFR Calc 26.2 pg 27.0-32.0 [facility] 13.7 % 11.6-14.6 [facility] 38.9 fl 35.1-43.9 [facility] 0.600 % 0.0-0.9 [facility] 0 % 0-5 [facility] 60 mL/min >60 [facility] 72 mL/min >60 [facility] 68.15 ml/min [facility] 9.7 RATIO 10-20 [facility] 4.5 g/dL 2.2-4.2 [facility] 37 U/L 13-75 [facility] 68 U/L 45-117 [facility] 14 U/L 13-56 [facility] 24.0 mmol/L 21.0-32.0 [facility] Platelets bldOrdered By: Bakari Norman on 01-12-2023 Platelets (Bld) [#/Vol] 352 10*3/uL 150-450 [facility] Serum or plasma albumin hussein urement (mass/volume)Ordered By: Perico Norman on 01-12-2023 Albumin [Mass/Vol] 3.3 g/dL 3.2-5.0 [facility] Serum or plasma calcium hussein urement (mass/volume)Ordered By: Fabricio Guevara on 01-12-2023 Calcium [Mass/Vol] 8.7 mg/dL 8.5-10.1 [facility] Serum or plasma calcium hussein urement (mass/volume)Ordered By: Perico Norman on 01-12-2023 Calcium [Mass/Vol] 9.0 mg/dL 8.5-10.1 [facility] Serum or plasma creatinine m easurement (mass/volume)Ordered By: Fabricio Guevara on 01-12-2023 Creatinine [Mass/Vol] 1.00 mg/dL 0.55-1.02 [facility] Comment on above: The validity of the calculated GFR & GFRAA in patients over 70 years has not been determined. Clinical correlation is essential. Serum or plasma creatinine m easurement (mass/volume)Ordered By: Perico Norman on 01-12-2023 Creatinine [Mass/Vol] 1.13 mg/dL 0.55-1.02 [facility] Comment on above: The validity of the calculated GFR & GFRAA in patients over 70 years has not been determined. Clinical correlation is essential. Serum or plasma urea nitroge n measurement (mass/volume)Ordered By: Fabricio Guevara on 01-12-2023 Urea nitrogen [Mass/Vol] 7 mg/dL 01-26 [facility] Serum or plasma urea nitroge n measurement (mass/volume)Ordered By: Perico Norman on 01-12-2023 Urea nitrogen [Mass/Vol] 11 mg/dL 01-26 [facility] Thin prep Papanicolaou smear with manual screeningOrdered By: Fabricio Guevara on 01-12-2023 Thin prep Papanicolaou smear with manual screening 6 5-15 [facility] Thin prep Papanicolaou smear with manual screeningOrdered By: Perico Norman on 01-12-2023 Thin prep Papanicolaou smear with manual screening 12 U/L 15-37 [facility] Thin prep Papanicolaou smear with manual screening 9 5-15 [facility] .Auto Diffon 01-10-2023 Basophil, Absolute 0.0 10 3/mcL Normal 0.0-0.2 [facility] ([place]) Comment on above: Performed By: #### A DIFF, GFR, MDW, CMP, ANEU, CBC, LIP #### [address] [address] Basophils/100 WBC (Bld) 0.2 % Normal 0.0-2.5 [facility] ([place]) Comment on above: Performed By: #### A DIFF, GFR, MDW, CMP, ANEU, CBC, LIP #### [address] [address] Eosinophil, Absolute 0.0 10 3/mcL Normal 0.0-0.4 [facility] ([place]) Comment on above: Performed By: #### A DIFF, GFR, MDW, CMP, ANEU, CBC, LIP #### [address] [address] Eosinophils/100 WBC (Bld) 0.1 % Normal 0.0-7.0 [facility] ([place]) Comment on above: Performed By: #### A DIFF, GFR, MDW, CMP, ANEU, CBC, LIP #### [address] [address] Lymphocyte, Absolute 2.7 10 3/mcL Normal 0.8-3.9 [facility] ([place]) Comment on above: Performed By: #### A DIFF, GFR, MDW, CMP, ANEU, CBC, LIP #### [address] [address] Lymphocytes/100 WBC (Bld) 17.3 % Normal 10.0-50.0 [facility] ([place]) Comment on above: Performed By: #### A DIFF, GFR, MDW, CMP, ANEU, CBC, LIP #### [address] [address] Monocyte, Absolute 0.9 10 3/mcL Normal 0.2-1.0 [facility] ([place] Comment on above: Performed By: #### A DIFF, GFR, MDW, CMP, ANEU, CBC, LIP #### [address] [address] Monocytes/100 WBC (Bld) 5.7 % Normal 1.7-13.0 [facility] ([place]) Comment on above: Performed By: #### A DIFF, GFR, MDW, CMP, ANEU, CBC, LIP #### [address] [address] Neutrophils/100 WBC (Bld) 76.7 % Normal 37.0-80.0 [facility] ([place] Comment on above: Performed By: #### A DIFF, GFR, MDW, CMP, ANEU, CBC, LIP #### [address] [address] .GFRon 01-10-2023 GFR 64 ml/min/1.73sqm Normal [facility] ([place]) Comment on above: Result Comment: GFR Population [...] GFR, MDW, CMP, ANEU, CBC, LIP #### [address] [address] GFR Non- 53 ml/min/1.73sqm Normal [facility] ([place] Comment on above: Result Comment: GFR Population [...] GFR, MDW, CMP, ANEU, CBC, LIP #### [address] [address] .MDWon 01-10-2023 Monocyte Distribution Width 14.44 Normal 0.00-20.00 [facility] ([place]) Comment on above: Result Comment: For ED adult patients suspected of sepsis, MDW<=20.0 does not rule out sepsis or risk of sepsis Performed By: #### A DIFF, GFR, MDW, CMP, ANEU, CBC, LIP #### [address] [address] .NEUABSon 01-10-2023 Neutrophil, Absolute 11.9 10 3/mcL High 2.9-6.2 [facility] ([place]) Comment on above: Performed By: #### A DIFF, GFR, MDW, CMP, ANEU, CBC, LIP #### [address] [address] .Urinalysis Microscopic (AO) on 01-10-2023 UA Bacteria Trace Abnormal [facility] ([place] Comment on above: Performed By: #### A DIFF, GFR, MDW, CMP, ANEU, CBC, LIP #### [place] [phone] UA RBC 0-5 Abnormal None Seen [facility] ([place] Comment on above: Performed By: #### A DIFF, GFR, MDW, CMP, ANEU, CBC, LIP #### [place] [phone] UA Squam Epithelial LOADED Abnormal None Seen [facility] ([place] Comment on above: Performed By: #### A DIFF, GFR, MDW, CMP, ANEU, CBC, LIP #### [place] [id number] UA WBC 0-5 Abnormal None Seen [facility] ([place] Comment on above: Performed By: #### A DIFF, GFR, MDW, CMP, ANEU, CBC, LIP #### [place] [address] UA Yeast Trace Abnormal [facility] ([place] Comment on above: Performed By: #### A DIFF, GFR, MDW, CMP, ANEU, CBC, LIP #### [place] [address] CBCon 01-10-2023 Erythrocyte distribution width (RBC) [Ratio] 14.7 % High 11.5-14.5 [facility] ([place] Comment on above: Performed By: #### A DIFF, GFR, MDW, CMP, ANEU, CBC, LIP #### [place] [phone] Hematocrit (Bld) [Volume fraction] 38.7 % Normal 37.0-47.0 [facility] ([place] Comment on above: Performed By: #### A DIFF, GFR, MDW, CMP, ANEU, CBC, LIP #### [place] [address] Hgb 12.9 G/dL Normal 12.0-16.0 [facility] ([place] Comment on above: Performed By: #### A DIFF, GFR, MDW, CMP, ANEU, CBC, LIP #### [place] [phone] MCH (RBC) [Entitic mass] 25.7 pg Low 27.0-31.2 [facility] ([place] Comment on above: Performed By: #### A DIFF, GFR, MDW, CMP, ANEU, CBC, LIP #### [address] [address] MCHC 33.3 G/dL Normal 33.0-37.0 [facility] ([place] Comment on above: Performed By: #### A DIFF, GFR, MDW, CMP, ANEU, CBC, LIP #### [address] [address] MCV (RBC) [Entitic vol] 77.4 fL Low 80.0-94.0 [facility] ([place]) Comment on above: Performed By: #### A DIFF, GFR, MDW, CMP, ANEU, CBC, LIP #### [address] [address] Platelet 438 10 3/mcL High 130-400 [facility] ([place] Comment on above: Performed By: #### A DIFF, GFR, MDW, CMP, ANEU, CBC, LIP #### [address] [address] Platelet mean volume (Bld) [Entitic vol] 7.2 fL Low 7.4-10.4 [facility] ([place] Comment on above: Performed By: #### A DIFF, GFR, MDW, CMP, ANEU, CBC, LIP #### [address] [address] RBC 5.01 10 6/mcL Normal 4.20-5.40 [facility] ([place] Comment on above: Performed By: #### A DIFF, GFR, MDW, CMP, ANEU, CBC, LIP #### [address] [address] WBC 15.5 10 3/mcL High 4.6-10.8 [facility] ([place] Comment on above: Performed By: #### A DIFF, GFR, MDW, CMP, ANEU, CBC, LIP #### [address] [address] CMPon 01-10-2023 Albumin Level 3.9 G/dL Normal 3.5-5.0 [facility] ([place] Comment on above: Performed By: #### A DIFF, GFR, MDW, CMP, ANEU, CBC, LIP #### [address] [address] Albumin/Globulin [Mass ratio] 0.9 {ratio} Low 1.1-2.5 [facility] ([place] Comment on above: Performed By: #### A DIFF, GFR, MDW, CMP, ANEU, CBC, LIP #### [address] [address] ALP [Catalytic activity/Vol] 84 U/L Normal 40-135 [facility] ([place] Comment on above: Performed By: #### A DIFF, GFR, MDW, CMP, ANEU, CBC, LIP #### [address] [address] ALT [Catalytic activity/Vol] 17 U/L Normal 14-59 [facility] ([place] Comment on above: Performed By: #### A DIFF, GFR, MDW, CMP, ANEU, CBC, LIP #### [address] [address] AST [Catalytic activity/Vol] 13 U/L Normal 10-40 [facility] ([place] Comment on above: Performed By: #### A DIFF, GFR, MDW, CMP, ANEU, CBC, LIP #### [address] [address] Bili Total 0.6 mg/dL Normal 0.2-1.0 [facility] ([place] Comment on above: Result Comment: Use of this assay is not recommended for patients undergoing treatment with eltrombopag due to the potential for falsely elevated results. Performed By: #### A DIFF, GFR, MDW, CMP, ANEU, CBC, LIP #### [address] [address] BUN/Creatinine Ratio 11 ratio Normal 7-27 [facility] ([place]) Comment on above: Performed By: #### A DIFF, GFR, MDW, CMP, ANEU, CBC, LIP #### [address] [address] Calcium [Mass/Vol] 9.4 mg/dL Normal 8.4-10.2 [facility] ([place]) Comment on above: Performed By: #### A DIFF, GFR, MDW, CMP, ANEU, CBC, LIP #### [address] [address] Chloride [Moles/Vol] 99 mmol/L Normal 98-107 [facility] ([place]) Comment on above: Performed By: #### A DIFF, GFR, MDW, CMP, ANEU, CBC, LIP #### [address] [address] CO2 [Moles/Vol] 22 mmol/L Normal 22-29 [facility] ([place] Comment on above: Performed By: #### A DIFF, GFR, MDW, CMP, ANEU, CBC, LIP #### [address] [address] Creatinine [Mass/Vol] 1.20 mg/dL High 0.55-1.02 [facility] ([place]) Comment on above: Performed By: #### A DIFF, GFR, MDW, CMP, ANEU, CBC, LIP #### [address] [address] Electrolyte Balance 17.0 mEq/L High 4.0-15.0 [facility] ([place] Comment on above: Performed By: #### A DIFF, GFR, MDW, CMP, ANEU, CBC, LIP #### [address] [address] Globulin 4.4 G/dL Normal [facility] ([place]) Comment on above: Performed By: #### A DIFF, GFR, MDW, CMP, ANEU, CBC, LIP #### [address] [address] Glucose [Mass/Vol] 270 mg/dL High 70-105 [facility] ([place] Comment on above: Performed By: #### A DIFF, GFR, MDW, CMP, ANEU, CBC, LIP #### [address] [address] Potassium [Moles/Vol] 3.4 mmol/L Low 3.5-5.1 [facility] ([place]) Comment on above: Performed By: #### A DIFF, GFR, MDW, CMP, ANEU, CBC, LIP #### [address] [address] Sodium [Moles/Vol] 138 mmol/L Normal 136-145 [facility] ([place] Comment on above: Performed By: #### A DIFF, GFR, MDW, CMP, ANEU, CBC, LIP #### [address] [address] Total Protein 8.3 G/dL High 6.4-8.2 [facility] ([place] Comment on above: Performed By: #### A DIFF, GFR, MDW, CMP, ANEU, CBC, LIP #### [address] [address] Urea nitrogen [Mass/Vol] 13 mg/dL Normal 7-18 [facility] ([place] Comment on above: Performed By: #### A DIFF, GFR, MDW, CMP, ANEU, CBC, LIP #### [address] [address] [address] ABD/PELVIS W/ IV CONTRAST ONLYon 01-10-2023 [...] Date: 01/10/2023 4:59:31 PM Ordering Provider: ESSIE Maldonado [facility] ([place] LABORATORYOrdered By: SYSTEM SYSTEM on 01-10-2023 Albumin [...] Level 39 U/L Normal 16-77 [facility] ([place] Comment on above: Performed By: #### A DIFF, GFR, MDW, CMP, ANEU, CBC, LIP #### [address] [address] PREGUon 01-10-2023 HCG ( test) Ql (U) Negative Normal [facility] ([place] Comment on above: Performed By: #### A DIFF, GFR, MDW, CMP, ANEU, CBC, LIP #### [address] [address] test (u) int Not detected Invalid Interpretation Code [facility] ([place] Comment on above: Performed By: #### A DIFF, GFR, MDW, CMP, ANEU, CBC, LIP #### [address] [address] UAon 01-10-2023 Color (U) Yellow Normal [facility] ([place] Comment on above: Performed By: #### A DIFF, GFR, MDW, CMP, ANEU, CBC, LIP #### [address] [address] Glucose (U) [Mass/Vol] 500 mg/dL Abnormal Negative [facility] ([place]) Comment on above: Performed By: #### A DIFF, GFR, MDW, CMP, ANEU, CBC, LIP #### [address] [address] Ketones Ql (U) >=160 Abnormal Negative [facility] ([place]) Comment on above: Performed By: #### A DIFF, GFR, MDW, CMP, ANEU, CBC, LIP #### [address] [address] UA Appear Slightly Cloudy Abnormal Clear [facility] ([place] Comment on above: Performed By: #### A DIFF, GFR, MDW, CMP, ANEU, CBC, LIP #### [address] [address] UA Blood Negative Normal Negative [facility] ([place] Comment on above: Performed By: #### A DIFF, GFR, W, CMP, ANEU, CBC, LIP #### [address] [address] UA Leuk Est Negative Normal Negative [facility] ([place] Comment on above: Performed By: #### A DIFF, GFR, MDW, CMP, ANEU, CBC, LIP #### [address] [address] UA Nitrite Negative Normal Negative [facility] ([place] Comment on above: Performed By: #### A DIFF, GFR, MDW, CMP, ANEU, CBC, LIP #### [address] [address] UA pH 8.5 Abnormal 5.0 - 8.0 [facility] ([place] Comment on above: Performed By: #### A DIFF, GFR, MDW, CMP, ANEU, CBC, LIP #### [address] [address] UA Protein 100 mg/dL Abnormal Negative [facility] ([place] Comment on above: Performed By: #### A DIFF, GFR, MDW, CMP, ANEU, CBC, LIP #### [address] [address] UA Spec Grav 1.020 Normal 1.015-1.025 [facility] ([place]) Comment on above: Performed By: #### A DIFF, GFR, MDW, CMP, ANEU, CBC, LIP #### [address] [address] UA Specimen Type Clean Catch Normal [facility] ([place] Comment on above: Performed By: #### A DIFF, GFR, MDW, CMP, ANEU, CBC, LIP #### [address] [address] UA Urobilinogen 0.2 E.U./dL Normal 0.2-1.0 [facility] ([place] Comment on above: Performed By: #### A DIFF, GFR, MDW, CMP, ANEU, CBC, LIP #### [address] [address] Urobilinogen (U) [Mass/Vol] Negative Normal Negative [facility] ([place] Comment on above: Performed By: #### A DIFF, GFR, MDW, CMP, ANEU, CBC, LIP #### [place] [id number] [place], [place] [address] Absolute lymphocyte countOrd ered By: Carlos Carterkristine on 01-09-2023 Lymphocytes Auto (Unsp spec) [#/Vol] 2.47 10*3/uL 0.83-4.51 [facility] Basophil percentageOrdered B y: Carlos Lubna on 01-09-2023 Basophil percentage 0 SEEN /hpf 0-5 [facility] Basophil percentage 247 mg/dL 74-106 [facility] Basophil percentage 8.7 g/dL 6.4-8.2 [facility] Basophil percentage 0.60 mg/dL 0.20-1.00 [facility] Basophil percentage 134 mmol/L 136-145 [facility] Basophil percentage 4.0 mmol/L 3.5-5.1 [facility] Basophil percentage 101 mmol/L 98-107 [facility] Basophils (Bld) [#/Vol] 10.7 10*3/uL 4.4-11.0 [facility] Basophils (Bld) [#/Vol] 7.6 10*3/uL 2.0-7.7 [facility] Basophils/100 WBC (Bld) 0.5 % 0-1 [facility] Basophils/100 WBC (Bld) 70.5 % 47-70 [facility] Basophils/100 WBC (Bld) 0.2 % 0-5 [facility] Bilirubin [Mass/Vol] 0.60 mg/dL 0.20-1.00 [facility] Comment on above: For patients on eltr ombopag therapy, use of [employer] [place] TBIL is not recommended. Chloride [Moles/Vol] 101 mmol/L 98-107 [facility] Eosinophils/100 WBC (Bld) 0.2 % 0-5 [facility] Glucose [Mass/Vol] 247 mg/dL 74-106 [facility] Comment on above: Glucose result great er than or equal to 200 mg/dLsuggests DIABETES MELLITUS per A.D.A. criteria. Neutrophils (Bld) [#/Vol] 7.6 10*3/uL 2.0-7.7 [facility] Neutrophils/100 WBC (Bld) 70.5 % 47-70 [facility] Potassium [Moles/Vol] 4.0 mmol/L 3.5-5.1 [facility] Comment on above: Slight Hemolysis, Re sult may be falsely increased. Protein [Mass/Vol] 8.7 g/dL 6.4-8.2 [facility] Sodium [Moles/Vol] 134 mmol/L 136-145 [facility] WBC (Bld) [#/Vol] 10.7 10*3/uL 4.4-11.0 [facility] Bilirubin Test strip Ql (U)O rdered By: Carlos Calvo on 01-09-2023 Bilirubin Ql (U) Negative Negative [facility] Blood erythrocytes count (nu mber/volume)Ordered By: Carlos Calvo on 01-09-2023 RBC (Bld) [#/Vol] 5.01 10*6/uL 4.2-5.4 [facility] Blood hemoglobin measurement (mass/volume)Ordered By: Carlos Calvo on 01-09-2023 Hemoglobin (Bld) [Mass/Vol] 13.0 g/dL 12.0-15.0 [facility] Blood lymphocytes/100 leukoc ytesOrdered By: Carlos Calvo on 01-09-2023 Lymphocytes/100 WBC (Bld) 23.0 % 19-41 [facility] Blood monocytes/100 leukocyt esOrdered By: Carlos Calvo on 01-09-2023 Monocytes/100 WBC (Bld) 4.9 % 0-10 [facility] Blood platelet mean volumeOr dered By: Carlos Calvo on 01-09-2023 Platelet mean volume (Bld) [Entitic vol] 9.5 fL 6.2-12.0 [facility] Determination of erythrocyte mean corpuscular volume (MCV)Ordered By: Carlos Calvo on 01-09-2023 MCV (RBC) [Entitic vol] 79.8 fL 81-99 [facility] Glucose Glucometer (dC) [M ass/Vol]Ordered By: Deann Guerrero on 01-09-2023 Glucose [Mass/Vol] 254 mg/dL 74-106 [facility] Comment on above: MANAGEMENT OF PATIEN T CARE PER NURSING PROTOCOL Hematocrit Auto (Bld) [Volum e fraction]Ordered By: Carlos Calvo on 01-09-2023 Hematocrit (Bld) [Volume fraction] 40.0 % 37-47 [facility] Ketones Test strip Ql (U)Ord ered By: Carlos Calvo on 01-09-2023 Ketones Ql (U) 50 mg/dl Negative [facility] - Chemistry and C hemistry - challengeOrdered By: Carlos Calvo on 01-09-2023 HCG ( test) Ql (U) Negative [facility] Comment on above: Very dilute urine sp ecimens, as indicated by a low specificgravity, may not contain underwriting sales representative levels of hCG. If is still suspected, a first morning urinespecimen should be collected 48 hours later and tested. ALP [Catalytic activity/Vol] 85 U/L 45-117 [facility] ALT [Catalytic activity/Vol] 20 U/L 13-56 [facility] CO2 [Moles/Vol] 21.0 mmol/L 21.0-32.0 [facility] Globulin (S) [Mass/Vol] 5.2 g/dL 2.2-4.2 [facility] Lipase [Catalytic activity/Vol] 38 U/L 13-75 [facility] Comment on above: Please note:LIPASE r evised reference range effective 22. New Lipase methodology. Expected to produce lower values than the previous assay method. NEW Reference Range: 13 - 75 U/L Urea nitrogen/Creatinine [Mass ratio] 7.9 mg/mg 10-20 [facility] - Hematology and Cell countsOrdered By: Carlos Calvo on 01-09-2023 Erythrocyte distribution width (RBC) [Entitic vol] 38.3 fL 35.1-43.9 [facility] Erythrocyte distribution width (RBC) [Ratio] 13.4 % 11.6-14.6 [facility] Immature granulocytes/100 WBC (Bld) 0.900 % 0.0-0.9 [facility] Comment on above: IG% - Immature Granu locytes (promyelocytes, myelocytes and metamyelocytes) > 1% indicates that a LEFT SHIFT is Present. MCH (RBC) [Entitic mass] 25.9 pg 27.0-32.0 [facility] Nucleated RBC/100 WBC (Bld) [Ratio] 0 % 0-5 [facility] MCHC Auto (RBC) [Mass/Vol]Or dered By: Carlos Calvo on 01-09-2023 MCHC (RBC) [Mass/Vol] 32.5 g/dL 32-36 [facility] Mucus LM Ql (Urine sed)Order ed By: Carlos Calvo on 01-09-2023 Mucus Ql (Urine sed) 0 SEEN /hpf [facility] Nitrite Test strip Ql (U)Ord ered By: Carlos Calvo on 01-09-2023 Nitrite Ql (U) Negative Negative [facility] No Panel InformationOrdered By: Carlos Calvo on 01-09-2023 Negative [facility] Estimated Creatinine Clearance Calc 67.55 ml/min [facility] Estimated GFR (MDRD) Amer 72 mL/min >60 [facility] Comment on above: GFR Calc Estimated GFR (MDRD) Non-Af Amer 59 mL/min >60 [facility] Comment on above: Non- GFR Calc 25.9 pg 27.0-32.0 [facility] 13.4 % 11.6-14.6 [facility] 38.3 fl 35.1-43.9 [facility] 0.900 % 0.0-0.9 [facility] 0 % 0-5 [facility] 59 mL/min >60 [facility] 72 mL/min >60 [facility] 67.55 ml/min [facility] 7.9 RATIO 10-20 [facility] 5.2 g/dL 2.2-4.2 [facility] 38 U/L 13-75 [facility] 85 U/L 45-117 [facility] 20 U/L 13-56 [facility] 21.0 mmol/L 21.0-32.0 [facility] Platelets bldOrdered By: Analia Calvo on 01-09-2023 Platelets (Bld) [#/Vol] 397 10*3/uL 150-450 [facility] Protein Test strip Ql (U)Ord ered By: Carlos Calvo on 01-09-2023 Protein Ql (U) 15 mg/dl Negative [facility] Serum or plasma albumin hussein urement (mass/volume)Ordered By: Carlos Calvo on 01-09-2023 Albumin [Mass/Vol] 3.5 g/dL 3.2-5.0 [facility] Serum or plasma albumin/glob ulin mass ratioOrdered By: Carlos Calvo on 01-09-2023 Albumin/Globulin [Mass ratio] 0.7 {ratio} 0.9-2.4 [facility] Serum or plasma calcium hussein urement (mass/volume)Ordered By: Carlos Calvo on 01-09-2023 Calcium [Mass/Vol] 9.5 mg/dL 8.5-10.1 [facility] Serum or plasma creatinine m easurement (mass/volume)Ordered By: Carlos Calvo on 01-09-2023 Creatinine [Mass/Vol] 1.14 mg/dL 0.55-1.02 [facility] Comment on above: The validity of the calculated GFR & GFRAA in patients over 70 years has not been determined. Clinical correlation is essential. Serum or plasma urea nitroge n measurement (mass/volume)Ordered By: Carlos Calvo on 01-09-2023 Urea nitrogen [Mass/Vol] 9 mg/dL 7-18 [facility] Squamous epithelial cells de tection in urine sediment by light microscopyOrdered By: Carlos Calvo on 01-09-2023 Epithelial cells.squamous LM Ql (Urine sed) 5-10 SEEN /hpf 5-10 [facility] Thin prep Papanicolaou smear with manual screeningOrdered By: Carlos Calvo on 01-09-2023 Thin prep Papanicolaou smear with manual screening 19 U/L 15-37 [facility] Comment on above: Slight Hemolysis, Re sult may be falsely increased. Thin prep Papanicolaou smear with manual screening 12 5-15 [facility] Urine blood detectionOrdered By: Carlos Calvo on 01-09-2023 RBC Ql (U) 10 /ul Negative [facility] RBC Ql (U) 0 SEEN /hpf 0-5 [facility] Urine clarityOrdered By: Analia Calvo on 01-09-2023 Clarity (U) Clear Clear [facility] Urine color determinationOrd ered By: Carlos Calvo on 01-09-2023 Color (U) Yellow Yellow [facility] Urine glucose detectionOrder ed By: Carlos Calvo on 01-09-2023 Glucose Ql (U) 1000 mg/dl Normal [facility] Urine leukocyte esterase det ection by dipstickOrdered By: Carlos Calvo on 01-09-2023 Leukocyte esterase Test strip Ql (U) 25 /ul Negative [facility] Urine pHOrdered By: Carlos mclain on 01-09-2023 pH (U) 8.0 [pH] 5.0 - 8.0 [facility] Urine sediment bacteria coun t by microscopy (number/high power field)Ordered By: Carlos Calvo on 01-09-2023 Bacteria LM.HPF (Urine sed) [#/Area] 0 /[HPF] None Seen [facility] Urine specific gravity measu rementOrdered By: Carlos Calvo on 01-09-2023 Specific gravity (U) [Rel density] 1.015 1.002-1.030 [facility] Urobilinogen Auto test strip Ql (U)Ordered By: Carlos Calvo on 01-09-2023 Urobilinogen Ql (U) Normal mg/dl Normal [facility] Absolute lymphocyte countOrd ered By: Poli Barfield on 01-07-2023 Lymphocytes Auto (Unsp spec) [#/Vol] 3.48 10*3/uL 0.83-4.51 [facility] Basophil percentageOrdered B y: Poli Barfield on 01-07-2023 Basophil percentage 202 mg/dL 74-106 [facility] Basophil percentage 135 mmol/L 136-145 [facility] Basophil percentage 3.8 mmol/L 3.5-5.1 [facility] Basophil percentage 102 mmol/L 98-107 [facility] Basophils (Bld) [#/Vol] 9.0 10*3/uL 4.4-11.0 [facility] Basophils (Bld) [#/Vol] 4.8 10*3/uL 2.0-7.7 [facility] Basophils/100 WBC (Bld) 0.4 % 0-1 [facility] Basophils/100 WBC (Bld) 53.2 % 47-70 [facility] Basophils/100 WBC (Bld) 1.0 % 0-5 [facility] Chloride [Moles/Vol] 102 mmol/L 98-107 [facility] Eosinophils/100 WBC (Bld) 1.0 % 0-5 [facility] Glucose [Mass/Vol] 202 mg/dL 74-106 [facility] Comment on above: Glucose result great er than or equal to 200 mg/dLsuggests DIABETES MELLITUS per A.D.A. criteria. Neutrophils (Bld) [#/Vol] 4.8 10*3/uL 2.0-7.7 [facility] Neutrophils/100 WBC (Bld) 53.2 % 47-70 [facility] Potassium [Moles/Vol] 3.8 mmol/L 3.5-5.1 [facility] Sodium [Moles/Vol] 135 mmol/L 136-145 [facility] WBC (Bld) [#/Vol] 9.0 10*3/uL 4.4-11.0 [facility] Blood erythrocytes count (nu mber/volume)Ordered By: Poli Barfield on 01-07-2023 RBC (Bld) [#/Vol] 4.92 10*6/uL 4.2-5.4 [facility] Blood hemoglobin measurement (mass/volume)Ordered By: Poli Barfield on 01-07-2023 Hemoglobin (Bld) [Mass/Vol] 12.7 g/dL 12.0-15.0 [facility] Blood lymphocytes/100 leukoc ytesOrdered By: Poli Barfield on 01-07-2023 Lymphocytes/100 WBC (Bld) 38.5 % 19-41 [facility] Blood monocytes/100 leukocyt esOrdered By: Poli Barfield on 01-07-2023 Monocytes/100 WBC (Bld) 5.9 % 0-10 [facility] Blood platelet mean volumeOr dered By: Poli Barfield on 01-07-2023 Platelet mean volume (Bld) [Entitic vol] 9.1 fL 6.2-12.0 [facility] Determination of erythrocyte mean corpuscular volume (MCV)Ordered By: Poli Barfield on 06-29-2023 MCV (RBC) [Entitic vol] 79.7 fL 81-99 [facility] Glucose Glucometer (BldC) [M ass/Vol]Ordered By: Poli Barfield on 01-07-2023 Glucose [Mass/Vol] 206 mg/dL 74-106 [facility] Comment on above: MANAGEMENT OF PATIEN T CARE PER NURSING PROTOCOL Hematocrit Auto (Bld) [Volum e fraction]Ordered By: Poli Barfield on 01-07-2023 Hematocrit (Bld) [Volume fraction] 39.2 % 37-47 [facility] Laboratory - Chemistry and C hemistry - challengeOrdered By: Poli Barfield on 01-07-2023 HCG ( test) Ql (U) Negative [facility] Comment on above: Very dilute urine sp ecimens, as indicated by a low specificgravity, may not contain underwriting sales representative levels of hCG. If is still suspected, a first morning urinespecimen should be collected 48 hours later and tested. CO2 [Moles/Vol] 24.0 mmol/L 21.0-32.0 [facility] Urea nitrogen/Creatinine [Mass ratio] 8.9 mg/mg 10-20 [facility] Laboratory - Drug toxicology Ordered By: Poli Barfield on 01-07-2023 Amphetamines Ql (U) Negative <1000 ng/mL [facility] Benzodiazepines Ql (U) Negative < 200 ng/mL [facility] Cannabinoids Screen Ql (U) Positive < 50 ng/mL [facility] Cocaine Ql (U) Negative < 300 ng/mL [facility] Opiates Ql (U) Negative < 300 ng/mL [facility] - Hematology and Cell countsOrdered By: Poli Barfield on 01-07-2023 Erythrocyte distribution width (RBC) [Entitic vol] 38.9 fL 35.1-43.9 [facility] Erythrocyte distribution width (RBC) [Ratio] 13.5 % 11.6-14.6 [facility] Immature granulocytes/100 WBC (Bld) 1.000 % 0.0-0.9 [facility] Comment on above: IG% - Immature Granu locytes (promyelocytes, myelocytes and metamyelocytes) > 1% indicates that a LEFT SHIFT is Present. MCH (RBC) [Entitic mass] 25.8 pg 27.0-32.0 [facility] Nucleated RBC/100 [facility] (Bld) [[facility]] 0 [facility] [Mass/Vol]Or dered By: Poli Barfield on 01-07-2023 MCHC (RBC) [Mass/Vol] 32.4 g/dL 32-36 [facility] No Panel InformationOrdered By: Poli Barfield on 01-07-2023 MDMA (Ecstasy) Screen Positive < 500 ng/mL [facility] Urine Barbiturates Screen Negative < 200 ng/mL [facility] Urine Drug Screen Comment [facility] Comment on above: CONFIRMATORY TESTING FOR [...] Methadone Screen Negative < 300 ng/mL [facility] Negative < 300 ng/mL [facility] Positive < 50 ng/mL [facility] Estimated Creatinine Clearance Calc 68.76 ml/min [facility] Estimated GFR (MDRD) Amer 73 mL/min >60 [facility] Comment on above: GFR Calc Estimated GFR (MDRD) Non-Af Amer 60 mL/min >60 [facility] Comment on above: Non- GFR Calc 25.8 pg 27.0-32.0 [facility] 13.5 % 11.6-14.6 [facility] 38.9 fl 35.1-43.9 [facility] 1.000 % 0.0-0.9 [facility] 0 % 0-5 [facility] 60 mL/min >60 [facility] 73 mL/min >60 [facility] 68.76 ml/min [facility] 8.9 RATIO 10-20 [facility] 24.0 mmol/L 21.0-32.0 [facility] Platelets bldOrdered By: Devon Barfield on 01-07-2023 Platelets (Bld) [#/Vol] 380 10*3/uL 150-450 [facility] Serum or plasma calcium hsusein urement (mass/volume)Ordered By: Poli Barfield on 01-07-2023 Calcium [Mass/Vol] 9.0 mg/dL 8.5-10.1 [facility] Serum or plasma creatinine m easurement (mass/volume)Ordered By: Poli Barfield on 01-07-2023 Creatinine [Mass/Vol] 1.12 mg/dL 0.55-1.02 [facility] Comment on above: The validity of the calculated GFR & GFRAA in patients over 70 years has not been determined. Clinical correlation is essential. Serum or plasma urea nitroge n measurement (mass/volume)Ordered By: Poli Barfield on 01-07-2023 Urea nitrogen [Mass/Vol] 10 mg/dL 7-18 [facility] Thin prep Papanicolaou smear with manual screeningOrdered By: Poli Barfield on 01-07-2023 Thin prep Papanicolaou smear with manual screening 9 5-15 [facility] Urine phencyclidine (PCP) de tectionOrdered By: Poli Barfield on 01-07-2023 Phencyclidine Ql (U) Negative < 25 ng/mL [facility] Basophil percentageOrdered B y: Amy Solorzano on 11-25-2022 Basophil percentage 493 mg/dL 74-106 [facility] Basophil percentage 8.0 g/dL 6.4-8.2 [facility] Basophil percentage 0.20 mg/dL 0.20-1.00 [facility] Basophil percentage 130 mmol/L 136-145 [facility] Basophil percentage 4.3 mmol/L 3.5-5.1 [facility] Basophil percentage 99 mmol/L 98-107 [facility] Basophils (Bld) [#/Vol] 8.2 10*3/uL 4.4-11.0 [facility] Bilirubin [Mass/Vol] 0.20 mg/dL 0.20-1.00 [facility] Comment on above: For patients on eltr ombopag therapy, use of [employer] [place] TBIL is not recommended. Chloride [Moles/Vol] 99 mmol/L 98-107 [facility] Glucose [Mass/Vol] 493 mg/dL 74-106 [facility] Comment on above: Critical Result(s) C alled at: 11:44:33 11/25/2022 by: NICOLE PATE TO GHISLAINE MCQUEEN. Results read back by same.Glucose result greater than or equal to 200 mg/dLsuggests DIABETES MELLITUS per A.D.A. criteria. Potassium [Moles/Vol] 4.3 mmol/L 3.5-5.1 [facility] Protein [Mass/Vol] 8.0 g/dL 6.4-8.2 [facility] Sodium [Moles/Vol] 130 mmol/L 136-145 [facility] WBC (Bld) [#/Vol] 8.2 10*3/uL 4.4-11.0 [facility] Blood erythrocytes count (nu mber/volume)Ordered By: Amy Solorzano on 11-25-2022 RBC (Bld) [#/Vol] 4.74 10*6/uL 4.2-5.4 [facility] Blood hemoglobin measurement (mass/volume)Ordered By: Amy Solorzano on 11-25-2022 Hemoglobin (Bld) [Mass/Vol] 12.5 g/dL 12.0-15.0 [facility] Blood platelet mean volumeOr dered By: Amy Solorzano on 11-25-2022 Platelet mean volume (Bld) [Entitic vol] 9.5 fL 6.2-12.0 [facility] Determination of erythrocyte mean corpuscular volume (MCV)Ordered By: Amy Solorzano on 11-25-2022 MCV (RBC) [Entitic vol] 80.2 fL 81-99 [facility] Hematocrit Auto (Bld) [Volum e fraction]Ordered By: Amy Solorzano on 11-25-2022 Hematocrit (Bld) [Volume fraction] 38.0 % 37-47 [facility] - Chemistry and C hemistry - challengeOrdered By: Amy Solorzano on 11-25-2022 ALP [Catalytic activity/Vol] 110 U/L 45-117 [facility] ALT [Catalytic activity/Vol] 26 U/L 13-56 [facility] CO2 [Moles/Vol] 19.0 mmol/L 21.0-32.0 [facility] Globulin (S) [Mass/Vol] 5.0 g/dL 2.2-4.2 [facility] Urea nitrogen/Creatinine [Mass ratio] 11.3 mg/mg 10-20 [facility] - Hematology and Cell countsOrdered By: Amy Solorzano on 11-25-2022 Erythrocyte distribution width (RBC) [Entitic vol] 40.1 fL 35.1-43.9 [facility] Erythrocyte distribution width (RBC) [Ratio] 13.9 % 11.6-14.6 [facility] MCH (RBC) [Entitic mass] 26.4 pg 27.0-32.0 [facility] MCHC Auto (RBC) [Mass/Vol]Or dered By: Amy Solorzano on 11-25-2022 MCHC (RBC) [Mass/Vol] 32.9 g/dL 32-36 [facility] No Panel InformationOrdered By: Amy Solorzano on 11-25-2022 Estimated GFR (MDRD) Amer 71 mL/min >60 [facility] Comment on above: GFR Calc Estimated GFR (MDRD) Non-Af Amer 59 mL/min >60 [facility] Comment on above: Non- GFR Calc 26.4 pg 27.0-32.0 [facility] 13.9 % 11.6-14.6 [facility] 40.1 fl 35.1-43.9 [facility] 59 mL/min >60 [facility] 71 mL/min >60 [facility] 11.3 RATIO 10-20 [facility] 5.0 g/dL 2.2-4.2 [facility] 110 U/L 45-117 [facility] 26 U/L 13-56 [facility] 19.0 mmol/L 21.0-32.0 [facility] Platelets bldOrdered By: Glendy Solorzano on 11-25-2022 Platelets (Bld) [#/Vol] 375 10*3/uL 150-450 [facility] Serum or plasma albumin hussein urement (mass/volume)Ordered By: Amy Solorzano on 11-25-2022 Albumin [Mass/Vol] 3.0 g/dL 3.2-5.0 [facility] Serum or plasma albumin/glob ulin mass ratioOrdered By: Amy Solorzano on 11-25-2022 Albumin/Globulin [Mass ratio] 0.6 {ratio} 0.9-2.4 [facility] Serum or plasma calcium hussein urement (mass/volume)Ordered By: Amy Solorzano on 11-25-2022 Calcium [Mass/Vol] 8.2 mg/dL 8.5-10.1 [facility] Serum or plasma creatinine m easurement (mass/volume)Ordered By: Amy Solorzano on 11-25-2022 Creatinine [Mass/Vol] 1.15 mg/dL 0.55-1.02 [facility] Comment on above: The validity of the calculated GFR & GFRAA in patients over 70 years has not been determined. Clinical correlation is essential. Serum or plasma urea nitroge n measurement (mass/volume)Ordered By: Amy Solorzano on 11-25-2022 Urea nitrogen [Mass/Vol] 13 mg/dL 7-18 [facility] Thin prep Papanicolaou smear with manual screeningOrdered By: Amy Solorzano on 11-25-2022 Thin prep Papanicolaou smear with manual screening 15 U/L 15-37 [facility] Thin prep Papanicolaou smear with manual screening 12 5-15 [facility] Thin prep Papanicolaou smear with manual screening 6.1 mg/L NO RANGE EST. [facility] Whole blood hemoglobin A1c/t otal hemoglobin ratio (mass fraction)Ordered By: Amy Solorzano on 11-25-2022 HbA1c (Bld) [Mass fraction] 12.1 % 3.8-5.6 [facility] Comment on above: Normal < 5.7 % Predi abetic 5.7 - 6.4 % Diabetic >or= 6.5 % Please note range changes. Absolute lymphocyte countOrd ered By: Dr. Villatoro on 08-15-2022 Lymphocytes Auto (Unsp spec) [#/Vol] 2.49 10*3/uL 0.83-4.51 [facility] Basophil percentageOrdered B y: Dr. Villatoro on 08-15-2022 Basophils/100 WBC (Bld) 0.4 % 0-1 [facility] Chloride [Moles/Vol] 104 mmol/L 98-107 [facility] Eosinophils/100 WBC (Bld) 0.9 % 0-5 [facility] Glucose [Mass/Vol] 215 mg/dL 74-106 [facility] Comment on above: Glucose result great er than or equal to 200 mg/dLsuggests DIABETES MELLITUS per A.D.A. criteria. Neutrophils (Bld) [#/Vol] 5.7 10*3/uL 2.0-7.7 [facility] Neutrophils/100 WBC (Bld) 62.3 % 47-70 [facility] Potassium [Moles/Vol] 4.0 mmol/L 3.5-5.1 [facility] Sodium [Moles/Vol] 137 mmol/L 136-145 [facility] WBC (Bld) [#/Vol] 9.2 10*3/uL 4.4-11.0 [facility] Blood erythrocytes count (nu mber/volume)Ordered By: Dr. Villatoro on 08-15-2022 RBC (Bld) [#/Vol] 3.60 10*6/uL 4.2-5.4 [facility] Blood hemoglobin measurement (mass/volume)Ordered By: Dr. Villatoro on 08-15-2022 Hemoglobin (Bld) [Mass/Vol] 9.2 g/dL 12.0-15.0 [facility] Blood lymphocytes/100 leukoc ytesOrdered By: Dr. Villatoro on 08-15-2022 Lymphocytes/100 WBC (Bld) 27.1 % 19-41 [facility] Blood monocytes/100 leukocyt esOrdered By: Dr. Villatoro on 08-15-2022 Monocytes/100 WBC (Bld) 8.2 % 0-10 [facility] Blood platelet mean volumeOr dered By: Dr. Villatoro on 08-15-2022 Platelet mean volume (Bld) [Entitic vol] 9.0 fL 6.2-12.0 [facility] Determination of erythrocyte mean corpuscular volume (MCV)Ordered By: Dr. Villatoro on 08-15-2022 MCV (RBC) [Entitic vol] 81.4 fL 81-99 [facility] Glucose Glucometer (BldC) [M ass/Vol]Ordered By: Dr. Villatoro on 08-15-2022 Glucose [Mass/Vol] 290 mg/dL 74-106 [facility] Comment on above: MANAGEMENT OF PATIEN T CARE PER NURSING PROTOCOL Hematocrit Auto (Bld) [Volum e fraction]Ordered By: Dr. Villatoro on 08-15-2022 Hematocrit (Bld) [Volume fraction] 29.3 % 37-47 [facility] - Chemistry and C hemistry - challengeOrdered By: Dr. Villatoro on 08-15-2022 CO2 [Moles/Vol] 24.0 mmol/L 21.0-32.0 [facility] Urea nitrogen/Creatinine [Mass ratio] 7.1 mg/mg 10-20 [facility] - Hematology and Cell countsOrdered By: Dr. Villatoro on 08-15-2022 Erythrocyte distribution width (RBC) [Entitic vol] 38.4 fL 35.1-43.9 [facility] Erythrocyte distribution width (RBC) [Ratio] 12.9 % 11.6-14.6 [facility] Immature granulocytes/100 WBC (Bld) 1.100 % 0.0-0.9 [facility] Comment on above: IG% - Immature Granu locytes (promyelocytes, myelocytes and metamyelocytes) > 1% indicates that a LEFT SHIFT is Present. MCH (RBC) [Entitic mass] 25.6 pg 27.0-32.0 [facility] Nucleated RBC/100 WBC (Bld) [Ratio] 0 % 0-5 [facility] MCHC Auto (RBC) [Mass/Vol]Or dered By: Dr. Villatoro on 08-15-2022 MCHC (RBC) [Mass/Vol] 31.4 g/dL 32-36 [facility] No Panel InformationOrdered By: Dr. Villatoro on 08-15-2022 Estimated Creatinine Clearance Calc 110.01 ml/min [facility] Estimated GFR (MDRD) Amer 125 mL/min >60 [facility] Comment on above: GFR Calc Estimated GFR (MDRD) Non-Af Amer 104 mL/min >60 [facility] Comment on above: Non- GFR Calc Platelets bldOrdered By: Dr. Villatoro on 08-15-2022 Platelets (Bld) [#/Vol] 458 10*3/uL 150-450 [facility] Serum or plasma C reactive p rotein measurement (mass/volume)Ordered By: Dr. Villatoro on 08-15-2022 CRP [Mass/Vol] 119.00 mg/L 0.0-3.0 [facility] Comment on above: C-Reactive Protein ( CRP) provides useful information for thediagnosis, therapy and monitoring of inflammatory processesand associated diseases. For the evaluation of Relative Riskfor Cardiovascular Disease, a High Sensitivity CRP (HSCRP)should be ordered. Serum or plasma calcium hussein urement (mass/volume)Ordered By: Dr. Villatoro on 08-15-2022 Calcium [Mass/Vol] 8.4 mg/dL 8.5-10.1 [facility] Serum or plasma creatinine m easurement (mass/volume)Ordered By: Dr. Villatoro on 08-15-2022 Creatinine [Mass/Vol] 0.70 mg/dL 0.55-1.02 [facility] Comment on above: The validity of the calculated GFR & GFRAA in patients over 70 years has not been determined. Clinical correlation is essential. Serum or plasma urea nitroge n measurement (mass/volume)Ordered By: Dr. Villatoro on 08-15-2022 Urea nitrogen [Mass/Vol] 5 mg/dL 7-18 [facility] Thin prep Papanicolaou smear with manual screeningOrdered By: Dr. Villatoro on 08-15-2022 Thin prep Papanicolaou smear with manual screening 9 5-15 [facility] Culture, urineOrdered By: Dr Marine Christiansen on 08-14-2022 Bacteria identified Cx Nom (U) Escherichia coli [facility] Basophil percentageOrdered B y: Dr. Urbina on 08-13-2022 Bilirubin [Mass/Vol] 0.50 mg/dL 0.20-1.00 [facility] Comment on above: For patients on eltr ombopag therapy, use of [employer] [place] TBIL is not recommended. Protein [Mass/Vol] 8.1 g/dL 6.4-8.2 [facility] Erythrocyte sedimentation ra teOrdered By: Dr. Villatoro on 08-13-2022 ESR (Bld) [Velocity] 43 mm/h 0-30 [facility] Laboratory - Chemistry and C hemistry - challengeOrdered By: Dr. Urbina on 08-13-2022 ALP [Catalytic activity/Vol] 99 U/L 45-117 [facility] ALT [Catalytic activity/Vol] 11 U/L 13-56 [facility] Globulin (S) [Mass/Vol] 5.6 g/dL 2.2-4.2 [facility] Magnesium [Mass/Vol] 2.2 mg/dL 1.6-2.6 [facility] Serum or plasma albumin hussein urement (mass/volume)Ordered By: Dr. Urbina on 08-13-2022 Albumin [Mass/Vol] 2.5 g/dL 3.2-5.0 [facility] Serum or plasma albumin/glob ulin mass ratioOrdered By: Dr. Urbina on 08-13-2022 Albumin/Globulin [Mass ratio] 0.4 {ratio} 0.9-2.4 [facility] Thin prep Papanicolaou smear with manual screeningOrdered By: Dr. Urbina on 08-13-2022 Thin prep Papanicolaou smear with manual screening 8 U/L 15-37 [facility] Absolute lymphocyte countOrd ered By: Dr. Christiansen on 08-12-2022 Lymphocytes Auto (Unsp spec) [#/Vol] 3.81 10*3/uL 0.83-4.51 [facility] Basophil percentageOrdered B y: Dr. Christiansen on 08-12-2022 Basophil percentage 10-25 SEEN /hpf 0-5 [facility] Basophils/100 WBC (Bld) 0.3 % 0-1 [facility] Bilirubin [Mass/Vol] 0.50 mg/dL 0.20-1.00 [facility] Comment on above: For patients on eltr ombopag therapy, use of [employer] [place] TBIL is not recommended. Chloride [Moles/Vol] 95 mmol/L 98-107 [facility] Eosinophils/100 WBC (Bld) 0.1 % 0-5 [facility] Glucose [Mass/Vol] 230 mg/dL 74-106 [facility] Comment on above: Glucose result great er than or equal to 200 mg/dLsuggests DIABETES MELLITUS per A.D.A. criteria. Neutrophils (Bld) [#/Vol] 13.2 10*3/uL 2.0-7.7 [facility] Neutrophils/100 WBC (Bld) 69.8 % 47-70 [facility] Potassium [Moles/Vol] 3.9 mmol/L 3.5-5.1 [facility] Comment on above: Slight Hemolysis, Re sult may be falsely increased. Protein [Mass/Vol] 9.2 g/dL 6.4-8.2 [facility] Sodium [Moles/Vol] 130 mmol/L 136-145 [facility] WBC (Bld) [#/Vol] 18.9 10*3/uL 4.4-11.0 [facility] Bilirubin Test strip Ql (U)O rdered By: Dr. Christiansen on 08-12-2022 Bilirubin Ql (U) Negative Negative [facility] Blood erythrocytes count (nu mber/volume)Ordered By: Dr. Christiansen on 08-12-2022 RBC (Bld) [#/Vol] 4.35 10*6/uL 4.2-5.4 [facility] Blood hemoglobin measurement (mass/volume)Ordered By: Dr. Christiansen on 08-12-2022 Hemoglobin (Bld) [Mass/Vol] 11.4 g/dL 12.0-15.0 [facility] Blood lymphocytes/100 leukoc ytesOrdered By: Dr. Christiansen on 08-12-2022 Lymphocytes/100 WBC (Bld) 20.1 % 19-41 [facility] Blood manual differential co mment interpretation (narrative result)Ordered By: Dr. Christiansen on 08-12-2022 Manual differential comment Franky (Bld) [Interp] SCANNED [facility] Comment on above: MONOCYTOSIS NOTED Blood monocytes/100 leukocyt esOrdered By: Dr. Christiansen on 08-12-2022 Monocytes/100 WBC (Bld) 8.7 % 0-10 [facility] Blood platelet mean volumeOr dered By: Dr. Christiansen on 08-12-2022 Platelet mean volume (Bld) [Entitic vol] 9.3 fL 6.2-12.0 [facility] Determination of erythrocyte mean corpuscular volume (MCV)Ordered By: Dr. Christiansen on 08-12-2022 MCV (RBC) [Entitic vol] 78.2 fL 81-99 [facility] Glucose Glucometer (BldC) [M ass/Vol]Ordered By: Dr. Urbina on 08-12-2022 Glucose [Mass/Vol] 212 mg/dL 74-106 [facility] Comment on above: MANAGEMENT OF PATIEN T CARE PER NURSING PROTOCOL Hematocrit Auto (Bld) [Volum e fraction]Ordered By: Dr. Christiansen on 08-12-2022 Hematocrit (Bld) [Volume fraction] 34.0 % 37-47 [facility] Ketones Test strip Ql (U)Ord ered By: Dr. Christiansen on 08-12-2022 Ketones Ql (U) 15 mg/dl Negative [facility] Laboratory - Chemistry and C hemistry - challengeOrdered By: Dr. Christiansen on 08-12-2022 ALP [Catalytic activity/Vol] 136 U/L 45-117 [facility] ALT [Catalytic activity/Vol] 13 U/L 13-56 [facility] CO2 [Moles/Vol] 23.0 mmol/L 21.0-32.0 [facility] Globulin (S) [Mass/Vol] 6.3 g/dL 2.2-4.2 [facility] Magnesium [Mass/Vol] 1.6 mg/dL 1.6-2.6 [facility] Comment on above: Slight Hemolysis, Re sult may be falsely increased. Urea nitrogen/Creatinine [Mass ratio] 7.2 mg/mg 10-20 [facility] Laboratory - Hematology and Cell countsOrdered By: Dr. Christiansen on 08-12-2022 Erythrocyte distribution width (RBC) [Entitic vol] 36.9 fL 35.1-43.9 [facility] Erythrocyte distribution width (RBC) [Ratio] 12.9 % 11.6-14.6 [facility] Immature granulocytes/100 WBC (Bld) 1.000 % 0.0-0.9 [facility] Comment on above: IG% - Immature Granu locytes (promyelocytes, myelocytes and metamyelocytes) > 1% indicates that a LEFT SHIFT is Present. MCH (RBC) [Entitic mass] 26.2 pg 27.0-32.0 [facility] Nucleated RBC/100 WBC (Bld) [Ratio] 0 % 0-5 [facility] MCHC Auto (RBC) [Mass/Vol]Or dered By: Dr. Christiansen on 08-12-2022 MCHC (RBC) [Mass/Vol] 33.5 g/dL 32-36 [facility] Mucus LM Ql (Urine sed)Order ed By: Dr. Christiansen on 08-12-2022 Mucus Ql (Urine sed) 0 SEEN /hpf [facility] Nitrite Test strip Ql (U)Ord ered By: Dr. Christiansen on 08-12-2022 Nitrite Ql (U) Negative Negative [facility] No Panel InformationOrdered By: Dr. Christiansen on 08-12-2022 Estimated Creatinine Clearance Calc 69.38 ml/min [facility] Estimated GFR (MDRD) Amer 74 mL/min >60 [facility] Comment on above: GFR Calc Estimated GFR (MDRD) Non-Af Amer 61 mL/min >60 [facility] Comment on above: Non- GFR Calc Troponin I High Sensitivity 6 pg/mL 3.0-54.0 [facility] Comment on above: Please Note: New Catherine t Units and Gender Specific Reference Ranges. For more information see Policy Stat Procedure [place] High Sensitivity Troponin (TNIH) and attachments. Platelets bldOrdered By: Dr. Christiansen on 08-12-2022 Platelets (Bld) [#/Vol] 453 10*3/uL 150-450 [facility] Protein Test strip Ql (U)Ord ered By: Dr. Christiansen on 08-12-2022 Protein Ql (U) 100 mg/dl Negative [facility] Review by pathologistOrdered By: Dr. Christiansen on 08-12-2022 Pathologist review Franky (Unsp spec) [Interp] Zahraa waite [facility] Pathologist review Franky (Unsp spec) [Interp] Reviewed [facility] Comment on above: Previous reported re sult: Zahraa waite Edited by: RGOOD on 08/14/22:0949Neutrophilic leukocytosis.Microcytic RBCs.Clinical correlation suggested.Franki Glez D.O. 08/14/22 AMENDED REPORT 08/14/22 0949 PATH REV previously reported as: Zahraa waite Serum or plasma acetone hussein urement (mass/volume)Ordered By: Dr. Christiansen on 08-12-2022 Acetone [Mass/Vol] Negative NEG [facility] Serum or plasma albumin hussein urement (mass/volume)Ordered By: Dr. Christiansen on 08-12-2022 Albumin [Mass/Vol] 2.9 g/dL 3.2-5.0 [facility] Serum or plasma albumin/glob ulin mass ratioOrdered By: Dr. Christiansen on 08-12-2022 Albumin/Globulin [Mass ratio] 0.5 {ratio} 0.9-2.4 [facility] Serum or plasma calcium hussein urement (mass/volume)Ordered By: Dr. Christiansen on 08-12-2022 Calcium [Mass/Vol] 9.6 mg/dL 8.5-10.1 [facility] Serum or plasma creatinine m easurement (mass/volume)Ordered By: Dr. Christiansen on 08-12-2022 Creatinine [Mass/Vol] 1.11 mg/dL 0.55-1.02 [facility] Comment on above: The validity of the calculated GFR & GFRAA in patients over 70 years has not been determined. Clinical correlation is essential. Serum or plasma urea nitroge n measurement (mass/volume)Ordered By: Dr. Christiansen on 08-12-2022 Urea nitrogen [Mass/Vol] 8 mg/dL 7-18 [facility] Squamous epithelial cells de tection in urine sediment by light microscopyOrdered By: Dr. Christiansen on 08-12-2022 Epithelial cells.squamous LM Ql (Urine sed) 0-5 SEEN /hpf 5-10 [facility] Thin prep Papanicolaou smear with manual screeningOrdered By: Dr. Christiansen on 08-12-2022 Thin prep Papanicolaou smear with manual screening 20 U/L 15-37 [facility] Comment on above: Slight Hemolysis, Re sult may be falsely increased. Thin prep Papanicolaou smear with manual screening 12 5-15 [facility] Urine blood detectionOrdered By: Dr. Christiansen on 08-12-2022 RBC Ql (U) 150 /ul Negative [facility] RBC Ql (U) 0 SEEN /hpf 0-5 [facility] Urine clarityOrdered By: Dr. Christiansen on 08-12-2022 Clarity (U) Clear Clear [facility] Urine color determinationOrd ered By: Dr. Christiansen on 08-12-2022 Color (U) Yellow Yellow [facility] Urine glucose detectionOrder ed By: Dr. Christiansen on 08-12-2022 Glucose Ql (U) 50 mg/dl Normal [facility] Urine leukocyte esterase det ection by dipstickOrdered By: Dr. Christiansen on 08-12-2022 Leukocyte esterase Test strip Ql (U) 100 /ul Negative [facility] Urine pHOrdered By: Dr. Ethan arriola on 08-12-2022 pH (U) 6.0 [pH] 5.0 - 8.0 [facility] Urine sediment bacteria coun t by microscopy (number/high power field)Ordered By: Dr. Christiansen on 08-12-2022 Bacteria LM.HPF (Urine sed) [#/Area] 0 /[HPF] None Seen [facility] Urine specific gravity measu rementOrdered By: Dr. Christiansen on 08-12-2022 Specific gravity (U) [Rel density] 1.010 1.002-1.030 [facility] Urobilinogen Auto test strip Ql (U)Ordered By: Dr. Christiansen on 08-12-2022 Urobilinogen Ql (U) Normal mg/dl Normal [facility] Acid fast bacilli (AFB) cult ureOrdered By: Dr. Matias on 08-09-2022 Mycobacterium sp identified Org specific cx Nom (Unsp spec) [facility] Thin prep Papanicolaou smear with manual screeningOrdered By: Dr. Matias on 08-09-2022 Thin prep Papanicolaou smear with manual screening [facility] Absolute lymphocyte countOrd ered By: Dr. Rao on 06-29-2022 Lymphocytes Auto (Unsp spec) [#/Vol] 2.81 10*3/uL 0.83-4.51 [facility] Basophil percentageOrdered B y: Dr. Rao on 06-29-2022 Basophils/100 WBC (Bld) 0.7 % 0-1 [facility] Chloride [Moles/Vol] 105 mmol/L 98-107 [facility] Eosinophils/100 WBC (Bld) 1.3 % 0-5 [facility] Glucose [Mass/Vol] 192 mg/dL 74-106 [facility] Comment on above: Fasting Glucose resu lt greater than or equal to 126 mg/dL suggests DIABETES MELLITUS per A.D.A. criteria. Neutrophils (Bld) [#/Vol] 4.2 10*3/uL 2.0-7.7 [facility] Neutrophils/100 WBC (Bld) 51.1 % 47-70 [facility] Potassium [Moles/Vol] 3.9 mmol/L 3.5-5.1 [facility] Sodium [Moles/Vol] 136 mmol/L 136-145 [facility] WBC (Bld) [#/Vol] 8.2 10*3/uL 4.4-11.0 [facility] Blood erythrocytes count (nu mber/volume)Ordered By: Dr. Rao on 06-29-2022 RBC (Bld) [#/Vol] 4.46 10*6/uL 4.2-5.4 [facility] Blood hemoglobin measurement (mass/volume)Ordered By: Dr. Rao on 06-29-2022 Hemoglobin (Bld) [Mass/Vol] 11.7 g/dL 12.0-15.0 [facility] Blood lymphocytes/100 leukoc ytesOrdered By: Dr. Rao on 06-29-2022 Lymphocytes/100 WBC (Bld) 34.3 % 19-41 [facility] Blood monocytes/100 leukocyt esOrdered By: Dr. Rao on 06-29-2022 Monocytes/100 WBC (Bld) 9.9 % 0-10 [facility] Blood platelet mean volumeOr dered By: Dr. Rao on 06-29-2022 Platelet mean volume (Bld) [Entitic vol] 9.1 fL 6.2-12.0 [facility] Determination of erythrocyte mean corpuscular volume (MCV)Ordered By: Dr. Rao on 06-29-2022 MCV (RBC) [Entitic vol] 81.8 fL 81-99 [facility] Glucose Glucometer (BldC) [M ass/Vol]Ordered By: Dr. Lr on 06-29-2022 Glucose [Mass/Vol] 251 mg/dL 74-106 [facility] Comment on above: MANAGEMENT OF PATIEN T CARE PER NURSING PROTOCOL Hematocrit Auto (Bld) [Volum e fraction]Ordered By: Dr. Rao on 06-29-2022 Hematocrit (Bld) [Volume fraction] 36.5 % 37-47 [facility] - Chemistry and C hemistry - challengeOrdered By: Dr. Rao on 06-29-2022 CO2 [Moles/Vol] 24.0 mmol/L 21.0-32.0 [facility] Urea nitrogen/Creatinine [Mass ratio] 18.4 mg/mg 10-20 [facility] - Hematology and Cell countsOrdered By: Dr. Rao on 06-29-2022 Erythrocyte distribution width (RBC) [Entitic vol] 41.2 fL 35.1-43.9 [facility] Erythrocyte distribution width (RBC) [Ratio] 14.1 % 11.6-14.6 [facility] Immature granulocytes/100 WBC (Bld) 2.700 % 0.0-0.9 [facility] Comment on above: IG% - Immature Granu locytes (promyelocytes, myelocytes and metamyelocytes) > 1% indicates that a LEFT SHIFT is Present. MCH (RBC) [Entitic mass] 26.2 pg 27.0-32.0 [facility] Nucleated RBC/100 WBC (Bld) [Ratio] 0.2 % 0-5 [facility] - Microbiology an d Antimicrobial susceptibilityOrdered By: Dr. Hinson on 06-29-2022 Bacteria identified Cx Nom (Bld) No growth in 5 days. [facility] MCHC Auto (RBC) [Mass/Vol]Or dered By: Dr. Rao on 06-29-2022 MCHC (RBC) [Mass/Vol] 32.1 g/dL 32-36 [facility] No Panel InformationOrdered By: Dr. Rao on 06-29-2022 Estimated Creatinine Clearance Calc 108.46 ml/min [facility] Estimated GFR (MDRD) Amer 125 mL/min >60 [facility] Comment on above: GFR Calc Estimated GFR (MDRD) Non-Af Amer 103 mL/min >60 [facility] Comment on above: Non- GFR Calc Platelets bldOrdered By: Dr. Rao on 06-29-2022 Platelets (Bld) [#/Vol] 363 10*3/uL 150-450 [facility] Serum or plasma calcium hussein urement (mass/volume)Ordered By: Dr. Rao on 06-29-2022 Calcium [Mass/Vol] 8.4 mg/dL 8.5-10.1 [facility] Serum or plasma creatinine m easurement (mass/volume)Ordered By: Dr. Rao on 06-29-2022 Creatinine [Mass/Vol] 0.71 mg/dL 0.55-1.02 [facility] Comment on above: The validity of the calculated GFR & GFRAA in patients over 70 years has not been determined. Clinical correlation is essential. Serum or plasma urea nitroge n measurement (mass/volume)Ordered By: Dr. Rao on 06-29-2022 Urea nitrogen [Mass/Vol] 13 mg/dL 01-26 [facility] Thin prep Papanicolaou smear with manual screeningOrdered By: Dr. Rao on 06-29-2022 Thin prep Papanicolaou smear with manual screening 7 - [facility] Vancomycin troughOrdered By: Dr. Rao on 06-28-2022 Vancomycin trough [Mass/Vol] 15.6 ug/mL 5.0-15.0 [facility] Comment on above: VANCOMYCIN STANDARED DRUG THERAPY TROUGH LEVEL: 5.0 - 15.0 mg/L VANCOMYCIN HIGH INTENSITY THERAPY TROUGH LEVEL: 15.0 - 20.0 mg/L High Intensity therapy recommended for serious lifethreatening infections include:- Ezfjvclzvs-Ramswiphfsjp-Iynbztiwg (Ventilator/Healtcare Associated)-Sepsis PLEASE CONTACT PHARMACY SERVICES (#[id number]) FOR INTERPRETATIONOF RESULTS. Bacteria identified Cx Nom ( Wound)Ordered By: Dr. Matias on 06-26-2022 Wound Culture Streptococcus agalactiae (B) [facility] Culture, urineOrdered By: Dr Marine Hinson on 06-26-2022 Bacteria identified Cx Nom (U) Culture exhibits no growth. [facility] - Chemistry and C hemistry - challengeOrdered By: Dr. Morton on 06-26-2022 HCG ( test) Ql (U) Negative [facility] Comment on above: Very dilute urine sp ecimens, as indicated by a low specificgravity, may not contain underwriting sales representative levels of hCG. If is still suspected, a first morning urinespecimen should be collected 48 hours later and tested. Absolute lymphocyte counton 06-25-2022 Lymphocytes Auto (Unsp spec) [#/Vol] 3.27 10*3/uL 0.83-4.51 [facility] Work Phone: Basophil percentageon 2021 Basophils/100 WBC (Bld) 0.7 % 0-1 [facility] Work Phone: Chloride [Moles/Vol] 104 mmol/L 98-107 [facility] Work Phone: Eosinophils/100 WBC (Bld) 1.2 % 0-5 [facility] Work Phone: Glucose [Mass/Vol] 261 mg/dL 74-106 [facility] Work Phone: Comment on above: Glucose result great er than or equal to 200 mg/dLsuggests DIABETES MELLITUS per A.D.A. criteria. Neutrophils (Bld) [#/Vol] 4.8 10*3/uL 2.0-7.7 [facility] Work Phone: Neutrophils/100 WBC (Bld) 53.1 % 47-70 [facility] Work Phone: Potassium [Moles/Vol] 4.3 mmol/L 3.5-5.1 [facility] Work Phone: Sodium [Moles/Vol] 135 mmol/L 136-145 [facility] Work Phone: WBC (Bld) [#/Vol] 9.0 10*3/uL 4.4-11.0 [facility] Work Phone: Blood erythrocytes count (nu mber/volume)on 06-25-2022 RBC (Bld) [#/Vol] 4.62 10*6/uL 4.2-5.4 [facility] Work Phone: Blood hemoglobin measurement (mass/volume)on 06-25-2022 Hemoglobin (Bld) [Mass/Vol] 12.1 g/dL 12.0-15.0 [facility] Work Phone: Blood lymphocytes/100 leukoc yteson 06-25-2022 Lymphocytes/100 WBC (Bld) 36.4 % 19-41 [facility] Work Phone: Blood monocytes/100 leukocyt eson 06-25-2022 Monocytes/100 WBC (Bld) 7.0 % 0-10 [facility] Work Phone: [phone] Blood platelet mean volumeon 06-25-2022 Platelet mean volume (Bld) [Entitic vol] 9.5 fL 6.2-12.0 [facility] Work Phone: [phone] Determination of erythrocyte mean corpuscular volume (MCV)on 06-25-2022 MCV (RBC) [Entitic vol] 82.0 fL 81-99 [facility] Work Phone: [phone] Glucose Glucometer (BldC) [M ass/Vol]on 06-25-2022 Glucose [Mass/Vol] 263 mg/dL 74-106 [facility] Work Phone: [phone] Comment on above: MANAGEMENT OF PATIEN T CARE PER NURSING PROTOCOL Hematocrit Auto (Bld) [Volum e fraction]on 06-25-2022 Hematocrit (Bld) [Volume fraction] 37.9 % 37-47 [facility] Work Phone: [phone] Laboratory - Chemistry and C hemistry - challengeon 06-25-2022 CO2 [Moles/Vol] 24.0 mmol/L 21.0-32.0 [facility] Work Phone: [phone] Urea nitrogen/Creatinine [Mass ratio] 13.1 mg/mg 10-20 [facility] Work Phone: [phone] Laboratory - Hematology and Cell countson 06-25-2022 Erythrocyte distribution width (RBC) [Entitic vol] 41.4 fL 35.1-43.9 [facility] Work Phone: [phone] Erythrocyte distribution width (RBC) [Ratio] 14.1 % 11.6-14.6 [facility] Work Phone: [phone] Immature granulocytes/100 WBC (Bld) 1.600 % 0.0-0.9 [facility] Work Phone: [phone] Comment on above: IG% - Immature Granu locytes (promyelocytes, myelocytes and metamyelocytes) > 1% indicates that a LEFT SHIFT is Present. MCH (RBC) [Entitic mass] 26.2 pg 27.0-32.0 [facility] Work Phone: Nucleated RBC/100 WBC (Bld) [Ratio] 0 % 0-5 [facility] Work Phone: MCHC Auto (RBC) [Mass/Vol]on 06-25-2022 MCHC (RBC) [Mass/Vol] 31.9 g/dL 32-36 [facility] Work Phone: No Panel Informationon 06-25 Estimated Creatinine Clearance Calc 101.33 ml/min [facility] Work Phone: Estimated GFR (MDRD) Amer 114 mL/min >60 [facility] Work Phone: Comment on above: GFR Calc Estimated GFR (MDRD) Non-Af Amer 95 mL/min >60 [facility] Work Phone: Comment on above: Non- GFR Calc Platelets bldon 06-25-2022 Platelets (Bld) [#/Vol] 353 10*3/uL 150-450 [facility] Work Phone: Serum or plasma calcium hussein urement (mass/volume)on 06-25-2022 Calcium [Mass/Vol] 8.6 mg/dL 8.5-10.1 [facility] Work Phone: Serum or plasma creatinine m easurement (mass/volume)on 06-25-2022 Creatinine [Mass/Vol] 0.76 mg/dL 0.55-1.02 [facility] Work Phone: Comment on above: The validity of the calculated GFR & GFRAA in patients over 70 years has not been determined. Clinical correlation is essential. Serum or plasma urea nitroge n measurement (mass/volume)on 06-25-2022 Urea nitrogen [Mass/Vol] 10 mg/dL 7-18 [facility] Work Phone: [phone] Thin prep Papanicolaou smear with manual screeningon 06-25-2022 Thin prep Papanicolaou smear with manual screening 7 5-15 [facility] Work Phone: Absolute lymphocyte counton 06-24-2022 Lymphocytes Auto (Unsp spec) [#/Vol] 3.15 10*3/uL 0.83-4.51 [facility] Work Phone: Basophil percentageOrdered B y: Dr. Hinson on 06-24-2022 Lactate [Moles/Vol] 3.0 mmol/L 0.4-2.0 [facility] Comment on above: Critical Result(s) C alled at: 18:06:09 06/24/2022 by: LUIS E VALENZUELA.TO SIVA JANG4 RN MS-3 Results read back by same. Basophil percentage 0 SEEN /hpf 0-5 [facility] Bilirubin [Mass/Vol] 0.30 mg/dL 0.20-1.00 [facility] Comment on above: For patients on eltr ombopag therapy, use of [employer] [place] TBIL is not recommended. Protein [Mass/Vol] 8.0 g/dL 6.4-8.2 [facility] Basophil percentageon 2021 Basophils/100 WBC (Bld) 0.5 % 0-1 [facility] Work Phone: Chloride [Moles/Vol] 104 mmol/L 98-107 [facility] Work Phone: Eosinophils/100 WBC (Bld) 0.7 % 0-5 [facility] Work Phone: Glucose [Mass/Vol] 318 mg/dL 74-106 [facility] Work Phone: Comment on above: Glucose result great er than or equal to 200 mg/dLsuggests DIABETES MELLITUS per A.D.A. criteria. Lactate [Moles/Vol] 4.8 mmol/L 0.4-2.0 [facility] Work Phone: Comment on above: Critical Result(s) C alled at: 13:11:31 06/24/2022 by: Gayathri Edmond. Results read back by same. Neutrophils (Bld) [#/Vol] 5.1 10*3/uL 2.0-7.7 [facility] Work Phone: Neutrophils/100 WBC (Bld) 56.2 % 47-70 [facility] Work Phone: Potassium [Moles/Vol] 3.9 mmol/L 3.5-5.1 [facility]: Sodium [Moles/Vol] 138 mmol/L 136-145 [facility] Work Phone: WBC (Bld) [#/Vol] 9.1 10*3/uL 4.4-11.0 [facility] Work Phone: Bilirubin Test strip Ql (U)O rdered By: Dr. Hinson on 06-24-2022 Bilirubin Ql (U) Negative Negative [facility] Blood erythrocytes count (nu mber/volume)on 06-24-2022 RBC (Bld) [#/Vol] 4.73 10*6/uL 4.2-5.4 [facility]: Blood hemoglobin measurement (mass/volume)on 06-24-2022 Hemoglobin (Bld) [Mass/Vol] 12.8 g/dL 12.0-15.0 [facility] Work Phone: Blood lymphocytes/100 leukoc yteson 06-24-2022 Lymphocytes/100 WBC (Bld) 34.6 % 19-41 [facility] Work Phone: Blood monocytes/100 leukocyt eson 06-24-2022 Monocytes/100 WBC (Bld) 6.8 % 0-10 [facility] Work Phone: Blood platelet mean volumeon 06-24-2022 Platelet mean volume (Bld) [Entitic vol] 9.3 fL 6.2-12.0 [facility] Work Phone: Determination of erythrocyte mean corpuscular volume (MCV)on 06-24-2022 MCV (RBC) [Entitic vol] 81.2 fL 81-99 [facility] Work Phone: Gram stain for investigation of transfusion reactionOrdered By: Dr. Matias on 06-24-2022 Microscopic observation Gram stain Nom (Unsp spec) [facility] Hematocrit Auto (Bld) [Volum e fraction]on 06-24-2022 Hematocrit (Bld) [Volume fraction] 38.4 % 37-47 [facility] Work Phone: Ketones Test strip Ql (U)Ord ered By: Dr. Hinson on 06-24-2022 Ketones Ql (U) 15 mg/dl Negative [facility] Laboratory - Chemistry and C hemistry - challengeOrdered By: Dr. Hinson on 06-24-2022 ALP [Catalytic activity/Vol] 76 U/L 45-117 [facility] ALT [Catalytic activity/Vol] 22 U/L 13-56 [facility] Globulin (S) [Mass/Vol] 5.2 g/dL 2.2-4.2 [facility] Laboratory - Chemistry and C hemistry - challengeon 06-24-2022 CO2 [Moles/Vol] 28.0 mmol/L 21.0-32.0 [facility] Work Phone: Urea nitrogen/Creatinine [Mass ratio] 13.8 mg/mg 10-20 [facility] Work Phone: Laboratory - Hematology and Cell countson 06-24-2022 Erythrocyte distribution width (RBC) [Entitic vol] 41.3 fL 35.1-43.9 [facility] Work Phone: Erythrocyte distribution width (RBC) [Ratio] 14.2 % 11.6-14.6 [facility] Work Phone: Immature granulocytes/100 WBC (Bld) 1.200 % 0.0-0.9 [facility] Work Phone: Comment on above: IG% - Immature Granu locytes (promyelocytes, myelocytes and metamyelocytes) > 1% indicates that a LEFT SHIFT is Present. MCH (RBC) [Entitic mass] 27.1 pg 27.0-32.0 [facility] Work Phone: Nucleated RBC/100 WBC (Bld) [Ratio] 0 % 0-5 [facility] Work Phone: MCHC Auto (RBC) [Mass/Vol]on 06-24-2022 MCHC (RBC) [Mass/Vol] 33.3 g/dL 32-36 [facility] Work Phone: Mucus LM Ql (Urine sed)Order ed By: Dr. Hinson on 06-24-2022 Mucus Ql (Urine sed) 0 SEEN /hpf [facility] Nitrite Test strip Ql (U)Ord ered By: Dr. Hinson on 06-24-2022 Nitrite Ql (U) Negative Negative [facility] No Panel Informationon 06-24 Estimated Creatinine Clearance Calc 96.26 ml/min [facility] Work Phone: Estimated GFR (MDRD) Amer 109 mL/min >60 [facility] Work Phone: Comment on above: GFR Calc Estimated GFR (MDRD) Non-Af Amer 90 mL/min >60 [facility] Work Phone: Comment on above: Non- GFR Calc Platelets bldon 06-24-2022 Platelets (Bld) [#/Vol] 345 10*3/uL 150-450 [facility] Work Phone: Protein Test strip Ql (U)Ord ered By: Dr. Hinson on 06-24-2022 Protein Ql (U) 15 mg/dl Negative [facility] Serum or plasma albumin hussein urement (mass/volume)Ordered By: Dr. Hinson on 06-24-2022 Albumin [Mass/Vol] 2.8 g/dL 3.2-5.0 [facility] Serum or plasma albumin/glob ulin mass ratioOrdered By: Dr. Hinson on 06-24-2022 Albumin/Globulin [Mass ratio] 0.5 {ratio} 0.9-2.4 [facility] Serum or plasma calcium hussein urement (mass/volume)on 06-24-2022 Calcium [Mass/Vol] 9.1 mg/dL 8.5-10.1 [facility] Work Phone: [phone] Serum or plasma creatinine m easurement (mass/volume)on 06-24-2022 Creatinine [Mass/Vol] 0.80 mg/dL 0.55-1.02 [facility] Work Phone: Comment on above: The validity of the calculated GFR & GFRAA in patients over 70 years has not been determined. Clinical correlation is essential. Serum or plasma urea nitroge n measurement (mass/volume)on 06-24-2022 Urea nitrogen [Mass/Vol] 11 mg/dL 7-18 [facility] Work Phone: Squamous epithelial cells de tection in urine sediment by light microscopyOrdered By: Dr. Hinson on 06-24-2022 Epithelial cells.squamous LM Ql (Urine sed) 5-10 SEEN /hpf 5-10 [facility] Thin prep Papanicolaou smear with manual screeningOrdered By: Dr. Hinson on 06-24-2022 Thin prep Papanicolaou smear with manual screening 10 U/L 15-37 [facility] Thin prep Papanicolaou smear with manual screeningon 06-24-2022 Thin prep Papanicolaou smear with manual screening 6 5-15 [facility] Work Phone: Urine blood detectionOrdered By: Dr. Hinson on 06-24-2022 RBC Ql (U) 25 /ul Negative [facility] RBC Ql (U) 10-25 SEEN /hpf 0-5 [facility] Urine clarityOrdered By: Dr. Hinson on 06-24-2022 Clarity (U) Sl. Cloudy Clear [facility] Urine color determinationOrd ered By: Dr. Hinson on 06-24-2022 Color (U) Yellow Yellow [facility] Urine glucose detectionOrder ed By: Dr. Hinson on 06-24-2022 Glucose Ql (U) 1000 mg/dl Normal [facility] Urine leukocyte esterase det ection by dipstickOrdered By: Dr. Hinson on 06-24-2022 Leukocyte esterase Test strip Ql (U) Negative Negative [facility] Urine pHOrdered By: Dr. Vonda aden on 06-24-2022 pH (U) 5.0 [pH] 5.0 - 8.0 [facility] Urine sediment bacteria coun t by microscopy (number/high power field)Ordered By: Dr. Hinson on 06-24-2022 Bacteria LM.HPF (Urine sed) [#/Area] RARE /hpf None Seen [facility] Urine specific gravity measu rementOrdered By: Dr. Hinson on 06-24-2022 Specific gravity (U) [Rel density] 1.025 1.002-1.030 [facility] Urobilinogen Auto test strip Ql (U)Ordered By: Dr. Hinson on 06-24-2022 Urobilinogen Ql (U) Normal mg/dl Normal [facility] Whole blood hemoglobin A1c/t otal hemoglobin ratio (mass fraction)Ordered By: Dr. Rao on 06-24-2022 HbA1c (Bld) [Mass fraction] 10.6 % 3.8-5.6 [facility] Comment on above: Normal < 5.7 % Predi abetic 5.7 - 6.4 % Diabetic >or= 6.5 % Please note range changes. No Panel InformationOrdered By: Dr. Matias on 06-23-2022 Methicillin-Resist S.aureus DNA PCR Positive Negative [facility] Staphylococcus aureus DNA de tection by probe and target amplification methodOrdered By: Dr. Maitas on 06-23-2022 S. aureus DNA REBECCA+probe Ql (Unsp spec) Positive Negative [facility] Absolute lymphocyte countOrd ered By: Dr. Matias on 05-07-2022 Lymphocytes Auto (Unsp spec) [#/Vol] 0.99 10*3/uL 0.83-4.51 [facility] Comment on above: Previous reported re sult: 5.07 X10^3/uLEdited by: BHUPINDER on 05/07/22:1437 AMENDED REPORT 05/07/221436 Absolute Lymph previously reported as: 5.07 H X10^3/uL Basophil percentageOrdered B y: Dr. Matias on 05-07-2022 Basophil percentage [employer] [facility] Comment on above: Previous reported re [...] 0.6 % Bilirubin [Mass/Vol] 0.20 mg/dL 0.20-1.00 [facility] Comment on above: For patients on eltr ombopag therapy, use of Dimension [place] TBIL is not recommended. Chloride [Moles/Vol] 101 mmol/L 98-107 [facility] Glucose [Mass/Vol] 207 mg/dL 74-106 [facility] Comment on above: Glucose result great er than or equal to 200 mg/dLsuggests DIABETES MELLITUS per A.D.A. criteria. Neutrophils (Bld) [#/Vol] 8.8 10*3/uL 2.0-7.7 [facility] Comment on above: Previous reported re sult: 4.8 X10^3/uLEdited by: BHUPINDER on 05/07/22:1436 AMENDED REPORT 05/07/221435 Absolute Neut previously reported as: 4.8 X10^3/uL Potassium [Moles/Vol] 4.0 mmol/L 3.5-5.1 [facility] Protein [Mass/Vol] 8.4 g/dL 6.4-8.2 [facility] Sodium [Moles/Vol] 134 mmol/L 136-145 [facility] WBC (Bld) [#/Vol] 11.1 10*3/uL 4.4-11.0 [facility] Blood band neutrophil count as percentage of total leukocytesOrdered By: Dr. Matias on 05-07-2022 Band form neutrophils/100 WBC (Bld) 6 % 0-5 [facility] Blood erythrocytes count (nu mber/volume)Ordered By: Dr. Matias on 05-07-2022 RBC (Bld) [#/Vol] 4.81 10*6/uL 4.2-5.4 [facility] Blood hemoglobin measurement (mass/volume)Ordered By: Dr. Matias on 05-07-2022 Hemoglobin (Bld) [Mass/Vol] 13.0 g/dL 12.0-15.0 [facility] Blood lymphocytes/100 leukoc ytesOrdered By: Dr. Matias on 05-07-2022 Lymphocytes/100 WBC (Bld) [employer] [facility] Comment on above: Previous reported re sult: 45.7 %Edited by: BHUPINDER on 05/07/22:1430 AMENDED REPORT 05/07/22 1430 LY% previously reported as: 45.7 H % Lymphocytes/100 WBC (Bld) 9 % 19-41 [facility] Blood monocytes/100 leukocyt esOrdered By: Dr. Matias on 05-07-2022 Monocytes/100 WBC (Bld) [employer] [facility] Comment on above: Previous reported re sult: 5.2 %Edited by: BHUPINDER on 05/07/22:1430 AMENDED REPORT 05/07/22 1430 MONO% previously reported as: 5.2 % Monocytes/100 WBC (Bld) 12 % 0-10 [facility] Blood platelet mean volumeOr dered By: Dr. Matias on 05-07-2022 Platelet mean volume (Bld) [Entitic vol] 9.0 fL 6.2-12.0 [facility] Blood platelet morphology de termination (nominal result)Ordered By: Dr. Matias on 05-07-2022 Platelet morphology finding Nom (Bld) LARGE [facility] Blood segmented neutrophils/ [address]: [address] Matias on 05-07-2022 Segmented neutrophils/100 WBC (Bld) 73 % 47-70 [facility] Determination of erythrocyte mean corpuscular volume (MCV)Ordered By: Dr. Matias on 05-07-2022 MCV (RBC) [Entitic vol] 81.3 fL 81-99 [facility] Hematocrit Auto (Bld) [Volum e fraction]Ordered By: Dr. Matias on 05-07-2022 Hematocrit (Bld) [Volume fraction] 39.1 % 37-47 [facility] Laboratory - Chemistry and C hemistry - challengeOrdered By: Dr. Matias on 05-07-2022 ALP [Catalytic activity/Vol] 76 U/L 45-117 [facility] ALT [Catalytic activity/Vol] 23 U/L 13-56 [facility] CO2 [Moles/Vol] 25.0 mmol/L 21.0-32.0 [facility] Globulin (S) [Mass/Vol] 5.0 g/dL 2.2-4.2 [facility] Urea nitrogen/Creatinine [Mass ratio] 17.4 mg/mg 10-20 [facility] Laboratory - Hematology and Cell countsOrdered By: Dr. Matias on 05-07-2022 Erythrocyte distribution width (RBC) [Entitic vol] 41.1 fL 35.1-43.9 [facility] Erythrocyte distribution width (RBC) [Ratio] 14.0 % 11.6-14.6 [facility] MCH (RBC) [Entitic mass] 27.0 pg 27.0-32.0 [facility] Nucleated RBC/100 WBC (Bld) [Ratio] 0 % 0-5 [facility] MCHC Auto (RBC) [Mass/Vol]Or dered By: Dr. Matias on 05-07-2022 MCHC (RBC) [Mass/Vol] 33.2 g/dL 32-36 [facility] No Panel InformationOrdered By: Dr. Matias on 05-07-2022 Atypical Lymphocytes RARE % [facility] Estimated GFR (MDRD) Amer 99 mL/min >60 [facility] Comment on above: GFR Calc Estimated GFR (MDRD) Non-Af Amer 82 mL/min >60 [facility] Comment on above: Non- GFR Calc Immature Granulocyte % (Auto) [employer] [facility] Comment on above: Previous reported re sult: 1.500 %Edited by: BHUPINDER on 05/07/22:1431 AMENDED REPORT 05/07/22 1431 IM GRAN % previously reported as: 1.500 H % IG% - Immature Granulocytes (promyelocytes, myelocytes and metamyelocytes) > 1% indicates that a LEFT SHIFT is Present. Platelets bldOrdered By: Dr. Matias on 05-07-2022 Platelets (Bld) [#/Vol] 369 10*3/uL 150-450 [facility] RBC morphologyOrdered By: Dr Marine Matias on 05-07-2022 RBC morphology finding Nom (Bld) NORM C+C NORMAL NORM C&C [facility] Review by pathologiston 04-12 Pathologist review Franky (Unsp spec) [Interp] November ravindra [facility] Work Phone: Review by pathologistOrdered By: Dr. Matias on 05-07-2022 Pathologist review Franky (Unsp spec) [Interp] Reviewed [facility] Comment on above: Previous reported re sult: November ravindra Edited by: RGOHEIDI on 05/08/22:1553Neutrophilic leukocytosis.Clinical correlation suggested.Franki Glez D.O. 05/08/22 AMENDED REPORT 05/08/22 1553 PATH REV previously reported as: November ravindra Serum or plasma albumin hussein urement (mass/volume)Ordered By: Dr. Matias on 05-07-2022 Albumin [Mass/Vol] 3.4 g/dL 3.2-5.0 [facility] Serum or plasma albumin/glob ulin mass ratioOrdered By: Dr. Matias on 05-07-2022 Albumin/Globulin [Mass ratio] 0.7 {ratio} 0.9-2.4 [facility] Serum or plasma calcium hussein urement (mass/volume)Ordered By: Dr. Matias on 05-07-2022 Calcium [Mass/Vol] 8.7 mg/dL 8.5-10.1 [facility] Serum or plasma creatinine m easurement (mass/volume)Ordered By: Dr. Matias on 05-07-2022 Creatinine [Mass/Vol] 0.86 mg/dL 0.55-1.02 [facility] Comment on above: The validity of the calculated GFR & GFRAA in patients over 70 years has not been determined. Clinical correlation is essential. Serum or plasma urea nitroge n measurement (mass/volume)Ordered By: Dr. Matias on 05-07-2022 Urea nitrogen [Mass/Vol] 15 mg/dL 7-18 [facility] Thin prep Papanicolaou smear with manual screeningOrdered By: Dr. Matias on 05-07-2022 Thin prep Papanicolaou smear with manual screening 10 U/L 15-37 [facility] Thin prep Papanicolaou smear with manual screening 8 5-15 [facility] Basophil percentageOrdered B y: [facility] [place] on 04-20-2022 Chloride [Moles/Vol] 104 mmol/L 98-107 [facility] Glucose [Mass/Vol] 224 mg/dL 74-106 [facility] Comment on above: Glucose result great er than or equal to 200 mg/dLsuggests DIABETES MELLITUS per A.D.A. criteria. Potassium [Moles/Vol] 3.7 mmol/L 3.5-5.1 [facility] Sodium [Moles/Vol] 139 mmol/L 136-145 [facility] WBC (Bld) [#/Vol] 9.3 10*3/uL 4.4-11.0 [facility] Blood erythrocytes count (nu mber/volume)Ordered By: [facility] [place] on 04-20-2022 RBC (Bld) [#/Vol] 3.93 10*6/uL 4.2-5.4 [facility] Blood hemoglobin measurement (mass/volume)Ordered By: [facility] [place] on 04-20-2022 Hemoglobin (Bld) [Mass/Vol] 10.4 g/dL 12.0-15.0 [facility] Blood platelet mean volumeOr dered By: [facility] [place] on 04-20-2022 Platelet mean volume (Bld) [Entitic vol] 9.6 fL 6.2-12.0 [facility] Determination of erythrocyte mean corpuscular volume (MCV)Ordered By: [facility] [place] on 04-20-2022 MCV (RBC) [Entitic vol] 83.7 fL 81-99 [facility] Erythrocyte sedimentation ra teOrdered By: [facility] [place] on 04-20-2022 ESR (Bld) [Velocity] 60 mm/h 0-30 [facility] Hematocrit Auto (Bld) [Volum e fraction]Ordered By: [facility] [place] on 04-20-2022 Hematocrit (Bld) [Volume fraction] 32.9 % 37-47 [facility] Laboratory - Chemistry and C hemistry - challengeOrdered By: [facility] [place] on 04-20-2022 CO2 [Moles/Vol] 28.0 mmol/L 21.0-32.0 [facility] Urea nitrogen/Creatinine [Mass ratio] 16.3 mg/mg 10-20 [facility] Laboratory - Hematology and Cell countsOrdered By: [facility] [place] on 04-20-2022 Erythrocyte distribution width (RBC) [Entitic vol] 41.4 fL 35.1-43.9 [facility] Erythrocyte distribution width (RBC) [Ratio] 13.5 % 11.6-14.6 [facility] MCH (RBC) [Entitic mass] 26.5 pg 27.0-32.0 [facility] MCHC Auto (RBC) [Mass/Vol]Or dered By: [facility] [place] on 04-20-2022 MCHC (RBC) [Mass/Vol] 31.6 g/dL 32-36 [facility] No Panel InformationOrdered By: [facility] [place] on 04-20-2022 Estimated GFR (MDRD) Amer 147 mL/min >60 [facility] Comment on above: GFR Calc Estimated GFR (MDRD) Non-Af Amer 122 mL/min >60 [facility] Comment on above: Non- GFR Calc Platelets bldOrdered By: [facility] on 04-20-2022 Platelets (Bld) [#/Vol] 509 10*3/uL 150-450 [facility] Serum or plasma calcium hussein urement (mass/volume)Ordered By: [facility] [place] on 04-20-2022 Calcium [Mass/Vol] 8.5 mg/dL 8.5-10.1 [facility] Serum or plasma creatinine m easurement (mass/volume)Ordered By: [facility] [place] on 04-20-2022 Creatinine [Mass/Vol] 0.61 mg/dL 0.55-1.02 [facility] Comment on above: The validity of the calculated GFR & GFRAA in patients over 70 years has not been determined. Clinical correlation is essential. Serum or plasma urea nitroge n measurement (mass/volume)Ordered By: [facility] [place] on 04-20-2022 Urea nitrogen [Mass/Vol] 10 mg/dL 7-18 [facility] Thin prep Papanicolaou smear with manual screeningOrdered By: [facility] [place] on 04-20-2022 Thin prep Papanicolaou smear with manual screening 7 5-15 [facility] Vancomycin troughOrdered By: [facility] [place] on 04-20-2022 Vancomycin trough [Mass/Vol] 7.2 ug/mL 5.0-15.0 [facility] Comment on above: VANCOMYCIN STANDARED DRUG THERAPY TROUGH LEVEL: 5.0 - 15.0 mg/L VANCOMYCIN HIGH INTENSITY THERAPY TROUGH LEVEL: 15.0 - 20.0 mg/L High Intensity therapy recommended for serious lifethreatening infections include:- Mvuynlkcma-Alkahpevbrdl-Bfcxnpbpo (Ventilator/Healtcare Associated)-Sepsis PLEASE CONTACT PHARMACY SERVICES (#[id number]) FOR INTERPRETATIONOF RESULTS. Basophil percentageon 2021 Chloride [Moles/Vol] 103 mmol/L 98-107 [facility] Work Phone: [phone] Glucose [Mass/Vol] 188 mg/dL 74-106 [facility] Work Phone: Comment on above: Fasting Glucose resu lt greater than or equal to 126 mg/dL suggests DIABETES MELLITUS per A.D.A. criteria. Potassium [Moles/Vol] 4.3 mmol/L 3.5-5.1 [facility] Work Phone: Sodium [Moles/Vol] 137 mmol/L 136-145 [facility] Work Phone: [phone] WBC (Bld) [#/Vol] 10.0 10*3/uL 4.4-11.0 [facility] Work Phone: [phone] Blood erythrocytes count (nu mber/volume)on 04-13-2022 RBC (Bld) [#/Vol] 4.32 10*6/uL 4.2-5.4 [facility] Work Phone: [phone] Blood hemoglobin measurement (mass/volume)on 04-13-2022 Hemoglobin (Bld) [Mass/Vol] 11.5 g/dL 12.0-15.0 [facility] Work Phone: [phone] Blood platelet mean volumeon 04-13-2022 Platelet mean volume (Bld) [Entitic vol] 9.2 fL 6.2-12.0 [facility] Work Phone: [phone] Determination of erythrocyte mean corpuscular volume (MCV)on 04-13-2022 MCV (RBC) [Entitic vol] 84.7 fL 81-99 [facility] Work Phone: [phone] Erythrocyte sedimentation ra abeba 04-13-2022 ESR (Bld) [Velocity] 90 mm/h 0-30 [facility] Work Phone: [phone] Hematocrit Auto (Bld) [Volum e fraction]on 04-13-2022 Hematocrit (Bld) [Volume fraction] 36.6 % 37-47 [facility] Work Phone: [phone] Laboratory - Chemistry and C hemistry - challengeon 04-13-2022 CO2 [Moles/Vol] 25.0 mmol/L 21.0-32.0 [facility] Work Phone: [phone] Urea nitrogen/Creatinine [Mass ratio] 18.8 mg/mg 10-20 [facility] Work Phone: [phone] Laboratory - Hematology and Cell countson 04-13-2022 Erythrocyte distribution width (RBC) [Entitic vol] 41.8 fL 35.1-43.9 [facility] Work Phone: [phone] Erythrocyte distribution width (RBC) [Ratio] 13.4 % 11.6-14.6 [facility] Work Phone: [phone] MCH (RBC) [Entitic mass] 26.6 pg 27.0-32.0 [facility] Work Phone: [phone] MCHC Auto (RBC) [Mass/Vol]on 04-13-2022 MCHC (RBC) [Mass/Vol] 31.4 g/dL 32-36 [facility] Work Phone: [phone] No Panel Informationon 04-13 Estimated GFR (MDRD) Amer 128 mL/min >60 [facility] Work Phone: [phone] Comment on above: GFR Calc Estimated GFR (MDRD) Non-Af Amer 106 mL/min >60 [facility] Work Phone: [phone] Comment on above: Non- GFR Calc Platelets bldon 04-13-2022 Platelets (Bld) [#/Vol] 609 10*3/uL 150-450 [facility] Work Phone: Serum or plasma calcium hussein urement (mass/volume)on 04-13-2022 Calcium [Mass/Vol] 9.4 mg/dL 8.5-10.1 [facility] Work Phone: Serum or plasma creatinine m easurement (mass/volume)on 04-13-2022 Creatinine [Mass/Vol] 0.69 mg/dL 0.55-1.02 [facility] Work Phone: Comment on above: The validity of the calculated GFR & GFRAA in patients over 70 years has not been determined. Clinical correlation is essential. Serum or plasma urea nitroge n measurement (mass/volume)on 04-13-2022 Urea nitrogen [Mass/Vol] 13 mg/dL 7-18 [facility] Work Phone: [phone] Thin prep Papanicolaou smear with manual screeningon 04-13-2022 Thin prep Papanicolaou smear with manual screening 9 5-15 [facility] Work Phone: Vancomycin troughon 04-13-20 22 Vancomycin trough [Mass/Vol] 19.3 ug/mL 5.0-15.0 [facility] Work Phone: Comment on above: VANCOMYCIN STANDARED DRUG THERAPY TROUGH LEVEL: 5.0 - 15.0 mg/L VANCOMYCIN HIGH INTENSITY THERAPY TROUGH LEVEL: 15.0 - 20.0 mg/L High Intensity therapy recommended for serious lifethreatening infections include:- Ciuwwmnegg-Ovythviwwcvz-Fxvfjggxj (Ventilator/Healtcare Associated)-Sepsis PLEASE CONTACT PHARMACY SERVICES (#[id number]) FOR INTERPRETATIONOF RESULTS. Basophil percentageon 2021 Chloride [Moles/Vol] 100 mmol/L 98-107 [facility] Work Phone: Cholesterol [Mass/Vol] 143 mg/dL <200 [facility] Work Phone: Comment on above: <200 mg/dL Desirable 200-240 mg/dL Borderline >240 mg/dL High Risk Glucose [Mass/Vol] 217 mg/dL 74-106 [facility] Work Phone: [phone] Comment on above: Glucose result great er than or equal to 200 mg/dLsuggests DIABETES MELLITUS per A.D.A. criteria. Potassium [Moles/Vol] 3.7 mmol/L 3.5-5.1 [facility] Work Phone: [phone] Sodium [Moles/Vol] 137 mmol/L 136-145 [facility] Work Phone: [phone] Triglyceride [Mass/Vol] 170 mg/dL <199 [facility] Work Phone: [phone] Comment on above: The drugs N-Acetylcy steine and Metamizole may falsely depress this assay.Serum Triglycerides Reference Interval Normal <150 mg/dL Borderline high 150 - 199 mg/dL High 200 - 499 mg/dL Very High > or = 500 mg/dL WBC (Bld) [#/Vol] 9.1 10*3/uL 4.4-11.0 [facility] Work Phone: [phone] Blood erythrocytes count (nu mber/volume)on 04-10-2022 RBC (Bld) [#/Vol] 3.85 10*6/uL 4.2-5.4 [facility] Work Phone: [phone] Blood hemoglobin measurement (mass/volume)on 04-10-2022 Hemoglobin (Bld) [Mass/Vol] 10.2 g/dL 12.0-15.0 [facility] Work Phone: [phone] Blood platelet mean volumeon 04-10-2022 Platelet mean volume (Bld) [Entitic vol] 9.1 fL 6.2-12.0 [facility] Work Phone: [phone] Determination of erythrocyte mean corpuscular volume (MCV)on 04-10-2022 MCV (RBC) [Entitic vol] 82.6 fL 81-99 [facility] Work Phone: [phone] Erythrocyte sedimentation ra abeba 04-10-2022 ESR (Bld) [Velocity] 58 mm/h 0-30 [facility] Work Phone: [phone] Hematocrit Auto (Bld) [Volum e fraction]on 04-10-2022 Hematocrit (Bld) [Volume fraction] 31.8 % 37-47 [facility] Work Phone: Laboratory - Chemistry and C hemistry - challengeon 04-10-2022 CO2 [Moles/Vol] 32.0 mmol/L 21.0-32.0 [facility] Work Phone: [phone] Cobalamin (Vitamin B12) [Mass/Vol] 216 pg/mL 211-911 [facility] Work Phone: [phone] Urea nitrogen/Creatinine [Mass ratio] 22.7 mg/mg 10-20 [facility] Work Phone: [phone] Laboratory - Hematology and Cell countson 04-10-2022 Erythrocyte distribution width (RBC) [Entitic vol] 39.7 fL 35.1-43.9 [facility] Work Phone: [phone] Erythrocyte distribution width (RBC) [Ratio] 13.2 % 11.6-14.6 [facility] Work Phone: [phone] MCH (RBC) [Entitic mass] 26.5 pg 27.0-32.0 [facility] Work Phone: MCHC Auto (RBC) [Mass/Vol]on 04-10-2022 MCHC (RBC) [Mass/Vol] 32.1 g/dL 32-36 [facility] Work Phone: No Panel Informationon 04-10 Estimated GFR (MDRD) Amer 146 mL/min >60 [facility] Work Phone: Comment on above: GFR Calc Estimated GFR (MDRD) Non-Af Amer 120 mL/min >60 [facility] Work Phone: [phone] Comment on above: Non- GFR Calc Vitamin D 25-Hydroxy 18.5 ng/mL [facility] Work Phone: [phone] Comment on above: Vitamin D 25(OH) Sta tus Range Deficiency <20 ng/mL (50nmol/L) Insufficiency 20 - 30 ng/mL (50 - 75 nmol/L) Sufficiency 30 - 100 ng/mL (75 - 250 nmol/L) Toxicity >100 ng/mL (>250 nmol/L) Platelets bldon 04-10-2022 Platelets (Bld) [#/Vol] 540 10*3/uL 150-450 [facility] Work Phone: Serum or plasma calcium hussein urement (mass/volume)on 04-10-2022 Calcium [Mass/Vol] 8.9 mg/dL 8.5-10.1 [facility] Work Phone: Serum or plasma cholesterol in HDL measurement (mass/volume)on 04-10-2022 Cholesterol in HDL [Mass/Vol] 23 mg/dL >40 [facility] Work Phone: Comment on above: The drugs N-Acetylcy steine and Metamizole may falsely depress this assay. Reference Range HDL <40 mg/dL Low HDL Cholesterol HDL >or= 60 mg/dL High HDL Cholesterol Serum or plasma cholesterol in VLDL measurement (mass/volume)on 04-10-2022 Cholesterol in VLDL [Mass/Vol] 34 mg/dL 5-40 [facility] Work Phone: Serum or plasma creatinine m easurement (mass/volume)on 04-10-2022 Creatinine [Mass/Vol] 0.62 mg/dL 0.55-1.02 [facility] Work Phone: Comment on above: The validity of the calculated GFR & GFRAA in patients over 70 years has not been determined. Clinical correlation is essential. Serum or plasma low density lipoprotein (LDL) cholesterol measurement (mass/volume)on 04-10-2022 Cholesterol in LDL [Mass/Vol] 86 mg/dL 0-130 [facility] Work Phone: Serum or plasma transthyreti n measurement (mass/volume)on 04-10-2022 Prealbumin [Mass/Vol] 11.5 mg/dL 20.0-40.0 [facility] Work Phone: Serum or plasma urea nitroge n measurement (mass/volume)on 04-10-2022 Urea nitrogen [Mass/Vol] 14 mg/dL 7-18 [facility] Work Phone: Thin prep Papanicolaou smear with manual screeningon 04-10-2022 Thin prep Papanicolaou smear with manual screening 5 5-15 [facility] Work Phone: Absolute lymphocyte counton 04-09-2022 Lymphocytes Auto (Unsp spec) [#/Vol] 2.68 10*3/uL 0.83-4.51 [facility] Work Phone: Basophil percentageon 2021 Basophils/100 WBC (Bld) 0.8 % 0-1 [facility] Work Phone: Chloride [Moles/Vol] 102 mmol/L 98-107 [facility] Work Phone: Eosinophils/100 WBC (Bld) 3.2 % 0-5 [facility] Work Phone: Glucose [Mass/Vol] 190 mg/dL 74-106 [facility] Work Phone: Comment on above: Fasting Glucose resu lt greater than or equal to 126 mg/dL suggests DIABETES MELLITUS per A.D.A. criteria. Neutrophils (Bld) [#/Vol] 3.7 10*3/uL 2.0-7.7 [facility] Work Phone: Neutrophils/100 WBC (Bld) 49.3 % 47-70 [facility] Work Phone: Potassium [Moles/Vol] 3.6 mmol/L 3.5-5.1 [facility] Work Phone: Sodium [Moles/Vol] 138 mmol/L 136-145 [facility] Work Phone: WBC (Bld) [#/Vol] 7.5 10*3/uL 4.4-11.0 [facility] Work Phone: Blood erythrocytes count (nu mber/volume)on 04-09-2022 RBC (Bld) [#/Vol] 3.73 10*6/uL 4.2-5.4 [facility] Work Phone: Blood hemoglobin measurement (mass/volume)on 04-09-2022 Hemoglobin (Bld) [Mass/Vol] 9.8 g/dL 12.0-15.0 [facility] Work Phone: Blood lymphocytes/100 leukoc yteson 04-09-2022 Lymphocytes/100 WBC (Bld) 35.8 % 19-41 [facility] Work Phone: Blood monocytes/100 leukocyt eson 04-09-2022 Monocytes/100 WBC (Bld) 9.2 % 0-10 [facility] Work Phone: Blood platelet mean volumeon 04-09-2022 Platelet mean volume (Bld) [Entitic vol] 8.8 fL 6.2-12.0 [facility] Work Phone: Determination of erythrocyte mean corpuscular volume (MCV)on 04-09-2022 MCV (RBC) [Entitic vol] 81.8 fL 81-99 [facility] Work Phone: Glucose Glucometer (dC) [M ass/Vol]on 04-09-2022 Glucose [Mass/Vol] 251 mg/dL 74-106 [facility] Work Phone: Comment on above: MANAGEMENT OF PATIEN T CARE PER NURSING PROTOCOL Glucose [Mass/Vol] 281 mg/dL 74-106 [facility] Work Phone: Comment on above: MANAGEMENT OF PATIEN T CARE PER NURSING PROTOCOL Hematocrit Auto (Bld) [Volum e fraction]on 04-09-2022 Hematocrit (Bld) [Volume fraction] 30.5 % 37-47 [facility] Work Phone: Laboratory - Chemistry and C hemistry - challengeon 04-09-2022 CO2 [Moles/Vol] 28.0 mmol/L 21.0-32.0 [facility] Work Phone: Urea nitrogen/Creatinine [Mass ratio] 17.2 mg/mg 10-20 [facility] Work Phone: [phone] Laboratory - Hematology and Cell countson 04-09-2022 Erythrocyte distribution width (RBC) [Entitic vol] 38.9 fL 35.1-43.9 [facility] Work Phone: [phone] Erythrocyte distribution width (RBC) [Ratio] 13.0 % 11.6-14.6 [facility] Work Phone: [phone] Immature granulocytes/100 WBC (Bld) 1.700 % 0.0-0.9 [facility] Work Phone: [phone] Comment on above: IG% - Immature Granu locytes (promyelocytes, myelocytes and metamyelocytes) > 1% indicates that a LEFT SHIFT is Present. MCH (RBC) [Entitic mass] 26.3 pg 27.0-32.0 [facility] Work Phone: [phone] Nucleated RBC/100 WBC (Bld) [Ratio] 0 % 0-5 [facility] Work Phone: [phone] MCHC Auto (RBC) [Mass/Vol]on 04-09-2022 MCHC (RBC) [Mass/Vol] 32.1 g/dL 32-36 [facility] Work Phone: No Panel Informationon 04-09 Estimated Creatinine Clearance Calc 120.32 ml/min [facility] Work Phone: [phone] Estimated GFR (MDRD) Amer 140 mL/min >60 [facility] Work Phone: [phone] Comment on above: GFR Calc Estimated GFR (MDRD) Non-Af Amer 116 mL/min >60 [facility] Work Phone: [phone] Comment on above: Non- GFR Calc Platelets bldon 04-09-2022 Platelets (Bld) [#/Vol] 478 10*3/uL 150-450 [facility] Work Phone: [phone] Serum or plasma calcium hussein urement (mass/volume)on 04-09-2022 Calcium [Mass/Vol] 8.7 mg/dL 8.5-10.1 [facility] Work Phone: [phone] Serum or plasma creatinine m easurement (mass/volume)on 04-09-2022 Creatinine [Mass/Vol] 0.64 mg/dL 0.55-1.02 [facility] Work Phone: Comment on above: The validity of the calculated GFR & GFRAA in patients over 70 years has not been determined. Clinical correlation is essential. Serum or plasma urea nitroge n measurement (mass/volume)on 04-09-2022 Urea nitrogen [Mass/Vol] 11 mg/dL 7-18 [facility] Work Phone: Thin prep Papanicolaou smear with manual screeningon 04-09-2022 Thin prep Papanicolaou smear with manual screening 8 5-15 [facility] Work Phone: [phone] Blood manual differential co mment interpretation (narrative result)on 04-08-2022 Manual differential comment Franky (Bld) [Interp] SCANNED [facility] Work Phone: [phone] Blood platelet adequacy dete ction by light microscopyon 04-08-2022 Platelets LM Ql (Bld) ADEQUATE ADEQ [facility] Work Phone: Vancomycin troughon 04-08-20 Vancomycin trough [Mass/Vol] 10.2 ug/mL 5.0-15.0 [facility] Work Phone: Comment on above: VANCOMYCIN STANDARED DRUG THERAPY TROUGH LEVEL: 5.0 - 15.0 mg/L VANCOMYCIN HIGH INTENSITY THERAPY TROUGH LEVEL: 15.0 - 20.0 mg/L High Intensity therapy recommended for serious lifethreatening infections include:- Qjhooggzcp-Awrnitxizpse-Djsjjyjrq (Ventilator/Healtcare Associated)-Sepsis PLEASE CONTACT PHARMACY SERVICES (#[id number]) FOR INTERPRETATIONOF RESULTS. Basophil percentageon 2021 Bilirubin [Mass/Vol] 0.70 mg/dL 0.20-1.00 [facility] Work Phone: Comment on above: For patients on eltr ombopag therapy, use of Dimension [place] TBIL is not recommended. Protein [Mass/Vol] 7.7 g/dL 6.4-8.2 [facility] Work Phone: Laboratory - Chemistry and C hemistry - challengeon 04-07-2022 ALP [Catalytic activity/Vol] 121 U/L 45-117 [facility] Work Phone: ALT [Catalytic activity/Vol] 9 U/L 13-56 [facility] Work Phone: Globulin (S) [Mass/Vol] 5.4 g/dL 2.2-4.2 [facility] Work Phone: Serum or plasma albumin hussein urement (mass/volume)on 04-07-2022 Albumin [Mass/Vol] 2.3 g/dL 3.2-5.0 [facility] Work Phone: Serum or plasma albumin/glob ulin mass ratioon 04-07-2022 Albumin/Globulin [Mass ratio] 0.4 {ratio} 0.9-2.4 [facility] Work Phone: Thin prep Papanicolaou smear with manual screeningon 04-07-2022 Thin prep Papanicolaou smear with manual screening 6 U/L 15-37 [facility] Work Phone: Absolute lymphocyte counton 04-06-2022 Lymphocytes Auto (Unsp spec) [#/Vol] 2.55 10*3/uL 0.83-4.51 [facility] Work Phone: Basophil percentageon 2021 Basophils/100 WBC (Bld) 0.2 % 0-1 [facility] Work Phone: Chloride [Moles/Vol] 94 mmol/L 98-107 [facility] Work Phone: Eosinophils/100 WBC (Bld) 0.0 % 0-5 [facility] Work Phone: Glucose [Mass/Vol] 396 mg/dL 74-106 [facility] Work Phone: Comment on above: Glucose result great er than or equal to 200 mg/dLsuggests DIABETES MELLITUS per A.D.A. criteria. Neutrophils (Bld) [#/Vol] 18.0 10*3/uL 2.0-7.7 [facility] Work Phone: Neutrophils/100 WBC (Bld) 80.1 % 47-70 [facility] Work Phone: Potassium [Moles/Vol] 3.8 mmol/L 3.5-5.1 [place] [facility] Work Phone: [phone] Sodium [Moles/Vol] 130 mmol/L 136-145 [facility] Work Phone: [phone] WBC (Bld) [#/Vol] 22.4 10*3/uL 4.4-11.0 [facility]: [phone] Beta hCG serum qualon 2021 Beta HCG ( test) Ql Negative [facility] Work Phone: [phone] Blood erythrocytes count (nu mber/volume)on 04-06-2022 RBC (Bld) [#/Vol] 4.48 10*6/uL 4.2-5.4 [facility] Work Phone: [phone] Blood hemoglobin measurement (mass/volume)on 04-06-2022 Hemoglobin (Bld) [Mass/Vol] 12.0 g/dL 12.0-15.0 [facility] Work Phone: [phone] Blood lymphocytes/100 leukoc yteson 04-06-2022 Lymphocytes/100 WBC (Bld) 11.4 % 19-41 [facility] Work Phone: [phone] Blood monocytes/100 leukocyt eson 04-06-2022 Monocytes/100 WBC (Bld) 7.1 % 0-10 [facility] Work Phone: [phone] Blood platelet mean volumeon 04-06-2022 Platelet mean volume (Bld) [Entitic vol] 9.5 fL 6.2-12.0 [facility] Work Phone: [phone] Determination of erythrocyte mean corpuscular volume (MCV)on 04-06-2022 MCV (RBC) [Entitic vol] 82.1 fL 81-99 [facility] Work Phone: [phone] Erythrocyte sedimentation ra abeba 04-06-2022 ESR (Bld) [Velocity] 118 mm/h 0-30 [facility]: [phone] Hematocrit Auto (Bld) [Volum e fraction]on 04-06-2022 Hematocrit (Bld) [Volume fraction] 36.8 % 37-47 [facility] Work Phone: Laboratory - Chemistry and C hemistry - challengeon 04-06-2022 CO2 [Moles/Vol] 25.0 mmol/L 21.0-32.0 [facility] Work Phone: [phone] Urea nitrogen/Creatinine [Mass ratio] 5.9 mg/mg 10-20 [facility] Work Phone: [phone] Laboratory - Hematology and Cell countson 04-06-2022 Erythrocyte distribution width (RBC) [Entitic vol] 39.4 fL 35.1-43.9 [facility] Work Phone: [phone] Erythrocyte distribution width (RBC) [Ratio] 13.2 % 11.6-14.6 [facility] Work Phone: [phone] Immature granulocytes/100 WBC (Bld) 1.200 % 0.0-0.9 [facility] Work Phone: [phone] Comment on above: IG% - Immature Granu locytes (promyelocytes, myelocytes and metamyelocytes) > 1% indicates that a LEFT SHIFT is Present. MCH (RBC) [Entitic mass] 26.8 pg 27.0-32.0 [facility] Work Phone: [phone] Nucleated RBC/100 WBC (Bld) [Ratio] 0 % 0-5 [facility] Work Phone: [phone] MCHC Auto (RBC) [Mass/Vol]on 04-06-2022 MCHC (RBC) [Mass/Vol] 32.6 g/dL 32-36 [facility] Work Phone: No Panel Informationon 04-06 Estimated Creatinine Clearance Calc 76.25 ml/min [facility] Work Phone: [phone] Estimated GFR (MDRD) Amer 83 mL/min >60 [facility] Work Phone: [phone] Comment on above: GFR Calc Estimated GFR (MDRD) Non-Af Amer 68 mL/min >60 [facility] Work Phone: [phone] Comment on above: Non- GFR Calc Platelets bldon 04-06-2022 Platelets (Bld) [#/Vol] 495 10*3/uL 150-450 [facility] Work Phone: Review by pathologiston 03-13 Pathologist review Franky (Unsp spec) [Interp] Zahraa waite [facility] Work Phone: [phone] Pathologist review Franky (Unsp spec) [Interp] Reviewed [facility] Work Phone: Comment on above: Previous reported re sult: Zahraa waite Edited by: RGOOD on 04/07/22:1303Neutrophilic leukocytosis with left shift. Thrombocytosis.Clinical correlation necessary.Patrick Castellon M.D. 04/07/22 AMENDED REPORT 04/07/22 1303 PATH REV previously reported as: Zahraa waite Serum or plasma C reactive p rotein measurement (mass/volume)on 04-06-2022 CRP [Mass/Vol] 321.00 mg/L 0.0-3.0 [facility] Work Phone: Comment on above: C-Reactive Protein ( CRP) provides useful information for thediagnosis, therapy and monitoring of inflammatory processesand associated diseases. For the evaluation of Relative Riskfor Cardiovascular Disease, a High Sensitivity CRP (HSCRP)should be ordered. Serum or plasma acetone hussein urement (mass/volume)on 04-06-2022 Acetone [Mass/Vol] Negative NEG [facility] Work Phone: [phone] Serum or plasma calcium hussein urement (mass/volume)on 04-06-2022 Calcium [Mass/Vol] 9.7 mg/dL 8.5-10.1 [facility] Work Phone: Serum or plasma creatinine m easurement (mass/volume)on 04-06-2022 Creatinine [Mass/Vol] 1.01 mg/dL 0.55-1.02 [facility] Work Phone: Comment on above: The validity of the calculated GFR & GFRAA in patients over 70 years has not been determined. Clinical correlation is essential. Serum or plasma urea nitroge n measurement (mass/volume)on 04-06-2022 Urea nitrogen [Mass/Vol] 6 mg/dL 7-18 [facility] Work Phone: Thin prep Papanicolaou smear with manual screeningon 04-06-2022 Thin prep Papanicolaou smear with manual screening 11 5-15 [facility] Work Phone: Whole blood hemoglobin A1c/t otal hemoglobin ratio (mass fraction)on 04-06-2022 HbA1c (Bld) [Mass fraction] 10.0 % 3.8-5.6 [facility] Work Phone: Comment on above: Normal < 5.7 % Predi abetic 5.7 - 6.4 % Diabetic >or= 6.5 % Please note range changes. Absolute lymphocyte counton 04-05-2022 Lymphocytes Auto (Unsp spec) [#/Vol] 2.49 10*3/uL 0.83-4.51 [facility] Work Phone: Basophil percentageon 2021 Basophils/100 WBC (Bld) 0.2 % 0-1 [facility] Work Phone: Chloride [Moles/Vol] 93 mmol/L 98-107 [facility] Work [facility]: Eosinophils/100 WBC (Bld) 0.2 % 0-5 [facility] Work Phone: Glucose [Mass/Vol] 389 mg/dL 74-106 [facility] Work Phone: Comment on above: Glucose result great er than or equal to 200 mg/dLsuggests DIABETES MELLITUS per A.D.A. criteria. Lactate [Moles/Vol] 2.5 mmol/L 0.4-2.0 [facility] Work [facility]: Comment on above: Critical Result(s) C alled at: 13:33:37 04/05/2022 by: Gayathri Torres. Results read back by same. Neutrophils (Bld) [#/Vol] 13.7 10*3/uL 2.0-7.7 [facility] Work Phone: Neutrophils/100 WBC (Bld) 78.3 % 47-70 [facility] Work Phone: [phone] Potassium [Moles/Vol] 4.0 mmol/L 3.5-5.1 [place] [facility] Work Phone: [phone] Sodium [Moles/Vol] 132 mmol/L 136-145 [facility]: [phone] WBC (Bld) [#/Vol] 17.5 10*3/uL 4.4-11.0 [facility] Work Phone: [phone] Blood erythrocytes count (nu mber/volume)on 04-05-2022 RBC (Bld) [#/Vol] 4.50 10*6/uL 4.2-5.4 [facility] Work Phone: [phone] Blood hemoglobin measurement (mass/volume)on 04-05-2022 Hemoglobin (Bld) [Mass/Vol] 12.7 g/dL 12.0-15.0 [facility] Work Phone: [phone] Blood lymphocytes/100 leukoc yteson 04-05-2022 Lymphocytes/100 WBC (Bld) 14.2 % 19-41 [facility] Work Phone: [phone] Blood monocytes/100 leukocyt eson 04-05-2022 Monocytes/100 WBC (Bld) 6.3 % 0-10 [facility] Work Phone: [phone] Blood platelet mean volumeon 04-05-2022 Platelet mean volume (Bld) [Entitic vol] 9.7 fL 6.2-12.0 [facility] Work Phone: [phone] Determination of erythrocyte mean corpuscular volume (MCV)on 04-05-2022 MCV (RBC) [Entitic vol] 82.2 fL 81-99 [facility] Work Phone: [phone] Hematocrit Auto (Bld) [Volum e fraction]on 04-05-2022 Hematocrit (Bld) [Volume fraction] 37.0 % 37-47 [facility] Work Phone: [phone] Laboratory - Chemistry and C hemistry - challengeon 04-05-2022 CO2 [Moles/Vol] 28.0 mmol/L 21.0-32.0 [facility] Work Phone: [phone] Urea nitrogen/Creatinine [Mass ratio] 8.5 mg/mg 10-20 [facility] Work Phone: [phone] Laboratory - Hematology and Cell countson 04-05-2022 Erythrocyte distribution width (RBC) [Entitic vol] 40.1 fL 35.1-43.9 [facility] Work Phone: [phone] Erythrocyte distribution width (RBC) [Ratio] 13.5 % 11.6-14.6 [facility] Work Phone: [phone] Immature granulocytes/100 WBC (Bld) 0.800 % 0.0-0.9 [facility] Work Phone: [phone] Comment on above: IG% - Immature Granu locytes (promyelocytes, myelocytes and metamyelocytes) > 1% indicates that a LEFT SHIFT is Present. MCH (RBC) [Entitic mass] 28.2 pg 27.0-32.0 [facility] Work Phone: [phone] Nucleated RBC/100 WBC (Bld) [Ratio] 0 % 0-5 [facility] Work Phone: [phone] MCHC Auto (RBC) [Mass/Vol]on 04-05-2022 MCHC (RBC) [Mass/Vol] 34.3 g/dL 32-36 [facility] Work Phone: [phone] Panel Informationon 04-05 Estimated Creatinine Clearance Calc 92.78 ml/min [facility] Work Phone: [phone] Estimated GFR (MDRD) Amer 104 mL/min >60 [facility] Work Phone: [phone] Comment on above: GFR Calc Estimated GFR (MDRD) Non-Af Amer 86 mL/min >60 [facility] Work Phone: [phone] Comment on above: Non- GFR Calc Platelets bldon 04-05-2022 Platelets (Bld) [#/Vol] 444 10*3/uL 150-450 [facility] Work Phone: [phone] Serum or plasma calcium hussein urement (mass/volume)on 04-05-2022 Calcium [Mass/Vol] 9.2 mg/dL 8.5-10.1 [facility] Work Phone: Serum or plasma creatinine m easurement (mass/volume)on 04-05-2022 Creatinine [Mass/Vol] 0.83 mg/dL 0.55-1.02 [facility] Work Phone: Comment on above: The validity of the calculated GFR & GFRAA in patients over 70 years has not been determined. Clinical correlation is essential. Serum or plasma urea nitroge n measurement (mass/volume)on 04-05-2022 Urea nitrogen [Mass/Vol] 7 mg/dL 7-18 [facility] Work Phone: Thin prep Papanicolaou smear with manual screeningon 04-05-2022 Thin prep Papanicolaou smear with manual screening 11 5-15 [facility] Work Phone: XR CHEST 2V FRONTAL/LATon [facility] XR Chest PA and Lateralon IMPRESSION: Within normal limits. No acute radiographic abnormality. Grade Foreman: PSCB Transcribe Date/Time: Mar 23 2022 1:11P Dictated by : CINDY OBRIEN MD This examination was interpreted and the report reviewed and electronically signed by: CINDY OBRIEN MD on Mar 23 2022 1:14PM [facility] DIVISION OF RADIOLOGY * * *Final [...] tissues: Unremarkable. DIVISION OF RADIOLOGY Provider, Susana Dewey - 03/23/2022 * * *Final Report* * [...] Within normal limits. No acute radiographic abnormality. Grade Foreman: PSCB Transcribe Date/Time: Mar 23 2022 1:11P Dictated by : CINDY OBRIEN MD This examination was interpreted and the report reviewed and electronically signed by: CINDY OBRIEN MD on Mar 23 2022 1:14PM EST [facility] Radiology Study observation (narrative) [facility] XR Chest PA and LateralOrder ed By: Ccf Provider on 03-23-2022 [facility] Absolute lymphocyte counton 02-01-2022 Lymphocytes Auto (Unsp spec) [#/Vol] 3.62 10*3/uL 0.83-4.51 [facility] Work Phone: Basophil percentageon 2021 Basophil percentage 0-5 SEEN /hpf 0-5 [facility] Work Phone: Basophils/100 WBC (Bld) 0.3 % 0-1 [facility] Work Phone: Bilirubin [Mass/Vol] 0.40 mg/dL 0.20-1.00 [facility] Work Phone: Comment on above: For patients on eltr ombopag therapy, use of Dimension [place] TBIL is not recommended. Chloride [Moles/Vol] 98 mmol/L 98-107 [facility] Work Phone: Eosinophils/100 WBC (Bld) 0.5 % 0-5 [facility] Work Phone: Glucose [Mass/Vol] 334 mg/dL 74-106 [facility] Work Phone: Comment on above: Glucose result great er than or equal to 200 mg/dLsuggests DIABETES MELLITUS per A.D.A. criteria. Lactate [Moles/Vol] 2.5 mmol/L 0.4-2.0 [facility] Work Phone: Comment on above: Critical Result(s) C alled at: 13:53:33 02/01/2022 by: Gayathri Regalado. Results read back by same. Neutrophils (Bld) [#/Vol] 5.5 10*3/uL 2.0-7.7 [facility] Work Phone: Neutrophils/100 WBC (Bld) 54.6 % 47-70 [facility] Work Phone: Potassium [Moles/Vol] 3.2 mmol/L 3.5-5.1 [facility] Work Phone: Protein [Mass/Vol] 7.2 g/dL 6.4-8.2 [facility] Work Phone: Sodium [Moles/Vol] 131 mmol/L 136-145 [facility] Work Phone: WBC (Bld) [#/Vol] 10.1 10*3/uL 4.4-11.0 [facility] Work Phone: Beta hCG serum qualon 2021 Beta HCG ( test) Ql Negative [facility] Work Phone: Bilirubin Test strip Ql (U)o n 02-01-2022 Bilirubin Ql (U) Negative Negative [facility] Work Phone: Blood erythrocytes count (nu mber/volume)on 02-01-2022 RBC (Bld) [#/Vol] 4.45 10*6/uL 4.2-5.4 [facility] Work Phone: Blood hemoglobin measurement (mass/volume)on 02-01-2022 Hemoglobin (Bld) [Mass/Vol] 11.7 g/dL 12.0-15.0 [facility] Work Phone: Blood lymphocytes/100 leukoc yteson 02-01-2022 Lymphocytes/100 WBC (Bld) 35.9 % 19-41 [facility] Work Phone: [phone] Blood monocytes/100 leukocyt eson 02-01-2022 Monocytes/100 WBC (Bld) 7.8 % 0-10 [facility] Work Phone: [phone] Blood platelet mean volumeon 02-01-2022 Platelet mean volume (Bld) [Entitic vol] 9.7 fL 6.2-12.0 [facility] Work Phone: Determination of erythrocyte mean corpuscular volume (MCV)on 02-01-2022 MCV (RBC) [Entitic vol] 80.2 fL 81-99 [facility] Work Phone: [phone] Hematocrit Auto (Bld) [Volum e fraction]on 02-01-2022 Hematocrit (Bld) [Volume fraction] 35.7 % 37-47 [facility] Work Phone: Ketones Test strip Ql (U)on 02-01-2022 Ketones Ql (U) Negative Negative [facility] Work Phone: Laboratory - Chemistry and C hemistry - challengeon 02-01-2022 ALP [Catalytic activity/Vol] 79 U/L 45-117 [facility] Work Phone: ALT [Catalytic activity/Vol] 12 U/L 13-56 [facility] Work Phone: CO2 [Moles/Vol] 24.0 mmol/L 21.0-32.0 [facility] Work Phone: Globulin (S) [Mass/Vol] 4.5 g/dL 2.2-4.2 [facility] Work Phone: Lipase [Catalytic activity/Vol] 154 U/L 73-393 [facility] Work Phone: [phone] Urea nitrogen/Creatinine [Mass ratio] 6.9 mg/mg 10-20 [facility] Work Phone: [phone] Laboratory - Hematology and Cell countson 02-01-2022 Erythrocyte distribution width (RBC) [Entitic vol] 39.5 fL 35.1-43.9 [facility] Work Phone: [phone] Erythrocyte distribution width (RBC) [Ratio] 13.7 % 11.6-14.6 [facility] Work Phone: [phone] Immature granulocytes/100 WBC (Bld) 0.900 % 0.0-0.9 [facility] Work Phone: [phone] Comment on above: IG% - Immature Granu locytes (promyelocytes, myelocytes and metamyelocytes) > 1% indicates that a LEFT SHIFT is Present. MCH (RBC) [Entitic mass] 26.3 pg 27.0-32.0 [facility] Work Phone: [phone] Nucleated RBC/100 WBC (Bld) [Ratio] 0 % 0-5 [facility] Work Phone: [phone] MCHC Auto (RBC) [Mass/Vol]on 02-01-2022 MCHC (RBC) [Mass/Vol] 32.8 g/dL 32-36 [facility] Work Phone: [phone] Mucus LM Ql (Urine sed)on Mucus Ql (Urine sed) 0 SEEN /hpf [facility] Work Phone: [phone] Nitrite Test strip Ql (U)on 02-01-2022 Nitrite Ql (U) Negative Negative [facility] Work Phone: [phone] Panel Informationon 02-01 Estimated Creatinine Clearance Calc 75.50 ml/min [facility] Work Phone: [phone] Estimated GFR (MDRD) Amer 82 mL/min >60 [facility] Work Phone: [phone] Comment on above: GFR Calc Estimated GFR (MDRD) Non-Af Amer 68 mL/min >60 [facility] Work Phone: Comment on above: Non- GFR Calc Platelets bldon 02-01-2022 Platelets (Bld) [#/Vol] 368 10*3/uL 150-450 [facility] Work Phone: [phone] Protein Test strip Ql (U)on 02-01-2022 Protein Ql (U) 15 mg/dl Negative [facility] Work Phone: [phone] Serum or plasma albumin hussein urement (mass/volume)on 02-01-2022 Albumin [Mass/Vol] 2.7 g/dL 3.2-5.0 [facility] Work Phone: [phone] Serum or plasma albumin/glob ulin mass ratioon 02-01-2022 Albumin/Globulin [Mass ratio] 0.6 {ratio} 0.9-2.4 [facility] Work Phone: [phone] Serum or plasma calcium hussein urement (mass/volume)on 02-01-2022 Calcium [Mass/Vol] 8.7 mg/dL 8.5-10.1 [facility] Work Phone: [phone] Serum or plasma creatinine m easurement (mass/volume)on 02-01-2022 Creatinine [Mass/Vol] 1.02 mg/dL 0.55-1.02 [facility] Work Phone: Comment on above: The validity of the calculated GFR & GFRAA in patients over 70 years has not been determined. Clinical correlation is essential. Serum or plasma urea nitroge n measurement (mass/volume)on 02-01-2022 Urea nitrogen [Mass/Vol] 7 mg/dL 7-18 [facility] Work Phone: [phone] Squamous epithelial cells de tection in urine sediment by light microscopyon 02-01-2022 Epithelial cells.squamous LM Ql (Urine sed) 0-5 SEEN /hpf 5-10 [facility] Work Phone: [phone] Thin prep Papanicolaou smear with manual screeningon 02-01-2022 Thin prep Papanicolaou smear with manual screening 8 U/L 15-37 [facility] Work Phone: [phone] Thin prep Papanicolaou smear with manual screening 9 5-15 [facility] Work Phone: Urine blood detectionon 01-10 RBC Ql (U) 50 /ul Negative [facility] Work Phone: RBC Ql (U) 0-5 SEEN /hpf 0-5 [facility] Work Phone: Urine clarityon 02-01-2022 Clarity (U) Clear Clear [facility] Work Phone: Urine color determinationon 02-01-2022 Color (U) Yellow Yellow [facility] Work Phone: Urine glucose detectionon Glucose Ql (U) 1000 mg/dl Normal [facility] Work Phone: Urine leukocyte esterase det ection by dipstickon 02-01-2022 Leukocyte esterase Test strip Ql (U) 25 /ul Negative [facility] Work Phone: Urine pHon 02-01-2022 pH (U) 5.0 [pH] 5.0 - 8.0 [facility] Work Phone: Urine sediment bacteria coun t by microscopy (number/high power field)on 02-01-2022 Bacteria LM.HPF (Urine sed) [#/Area] 0 /[HPF] None Seen [facility] Work Phone: Urine specific gravity measu rementon 02-01-2022 Specific gravity (U) [Rel density] 1.020 1.002-1.030 [facility] Work Phone: Urobilinogen Auto test strip Ql (U)on 02-01-2022 Urobilinogen Ql (U) Normal mg/dl Normal [facility] Work Phone: Absolute lymphocyte counton 01-30-2022 Lymphocytes Auto (Unsp spec) [#/Vol] 5.16 10*3/uL 0.83-4.51 [facility] Work Phone: Albumin Elph [Mass/Vol]on Albumin [Mass/Vol] 3.6 g/dL 2.9-4.4 [facility] Work Phone: Atypical perinuclear antineu trophil cytoplasmic antibodies measurementon 01-30-2022 Neutrophil cytoplasmic Ab.perinuclear.atypical IF (S) [Titer] <1:20 titer Neg:<1:20 [facility] Work Phone: Comment on above: The atypical pANCA p attern has been observed in asignificant percentage of patients with ulcerative colitis,primary sclerosing cholangitis and autoimmune hepatitis.Performed at: [facility] [address] [id number] Director: Wade Lazo PhD, Phone: [phone] at: [facility] [id number] Director: Philip Robles MD, Phone: [phone] Basophil percentageon 2021 Amylase [Catalytic activity/Vol] 19 U/L 25-115 [facility] Work Phone: [phone] Basophil percentage < 0.2 AI 0.0-0.9 [facility] Work Phone: Basophils/100 WBC (Bld) 0.3 % 0-1 [facility] Work Phone: Eosinophils/100 WBC (Bld) 0.5 % 0-5 [facility] Work Phone: [phone] Neutrophils (Bld) [#/Vol] 8.8 10*3/uL 2.0-7.7 [facility] Work Phone: [phone] Neutrophils/100 WBC (Bld) 57.5 % 47-70 [facility] Work Phone: WBC (Bld) [#/Vol] 15.3 10*3/uL 4.4-11.0 [facility] Work Phone: [phone] Blood erythrocytes count (nu mber/volume)on 01-30-2022 RBC (Bld) [#/Vol] 5.33 10*6/uL 4.2-5.4 [facility] Work Phone: Blood hemoglobin measurement (mass/volume)on 01-30-2022 Hemoglobin (Bld) [Mass/Vol] 13.9 g/dL 12.0-15.0 [facility] Work Phone: Blood lymphocytes/100 leukoc yteson 01-30-2022 Lymphocytes/100 WBC (Bld) 33.7 % 19-41 [facility] Work Phone: Blood manual differential co mment interpretation (narrative result)on 01-30-2022 Manual differential comment Franky (Bld) [Interp] SCANNED [facility] Work Phone: Comment on above: LYMPHOCYTOSIS NOTED Blood monocytes/100 leukocyt eson 01-30-2022 Monocytes/100 WBC (Bld) 7.2 % 0-10 [facility] Work Phone: Blood platelet mean volumeon 01-30-2022 Platelet mean volume (Bld) [Entitic vol] 9.5 fL 6.2-12.0 [facility] Work Phone: Determination of erythrocyte mean corpuscular volume (MCV)on 01-30-2022 MCV (RBC) [Entitic vol] 80.3 fL 81-99 [facility] Work Phone: Erythrocyte sedimentation ra abeba 01-30-2022 ESR (Bld) [Velocity] 81 mm/h 0-30 [facility] Work Phone: Hematocrit Auto (Bld) [Volum e fraction]on 01-30-2022 Hematocrit (Bld) [Volume fraction] 42.8 % 37-47 [facility] Work Phone: Interpretation of serum or p lasma protein pattern by immunofixation (narrative resulton 01-30-2022 Protein Fractions Immunofixation Franky [Interp] See comment [facility] Work Phone: Comment on above: NOT OBSERVED Laboratory - Chemistry and C hemistry - challengeon 01-30-2022 Cobalamin (Vitamin B12) [Mass/Vol] 318 pg/mL 211-911 [facility] Work Phone: Lipase [Catalytic activity/Vol] 150 U/L 73-393 [facility] Work Phone: [phone] Laboratory - Hematology and Cell countson 01-30-2022 Erythrocyte distribution width (RBC) [Entitic vol] 40.0 fL 35.1-43.9 [facility] Work Phone: [phone] Erythrocyte distribution width (RBC) [Ratio] 14.0 % 11.6-14.6 [facility] Work Phone: [phone] Immature granulocytes/100 WBC (Bld) 0.800 % 0.0-0.9 [facility] Work Phone: [phone] Comment on above: IG% - Immature Granu locytes (promyelocytes, myelocytes and metamyelocytes) > 1% indicates that a LEFT SHIFT is Present. MCH (RBC) [Entitic mass] 26.1 pg 27.0-32.0 [facility] Work Phone: [phone] Nucleated RBC/100 WBC (Bld) [Ratio] 0 % 0-5 [facility] Work Phone: [phone] MCHC Auto (RBC) [Mass/Vol]on 01-30-2022 MCHC (RBC) [Mass/Vol] 32.5 g/dL 32-36 [facility] Work Phone: [phone] Panel Informationon 01-30 Addendum Document Comment . 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 Centromere B Antibody <0.2 AI 0.0-0.9 [facility] Work Phone: [phone] Endomysial IgA Antibody Negative Negative [facility] Work Phone: [phone] Immunoglobulin E 119 IU/mL 6-495 [facility] Work Phone: [phone] EMBOSSING [employer]ESS OPERATOR [employer]ED [employer] Antibody <0.2 AI 0.0-0.9 [facility] Work Phone: [phone] Thyroid Stimulating Hormone (TSH) 2.21 uIU/mL 0.358-3.74 [facility] Work Phone: [phone] Platelets bldon 01-30-2022 Platelets (Bld) [#/Vol] 484 10*3/uL 150-450 [facility] Work Phone: Serum DNA double strand anti body assay (units/volume)on 01-30-2022 DNA double strand Ab Qn (S) [IU]/mL 0-9 [facility] Work Phone: Comment on above: Negative <5 Equivoca l 5 - 9 Positive >9 Serum Neva-1 antibody assay (u nits/volume)on 01-30-2022 Neva-1 extractable nuclear Ab Qn (S) <0.2 AI 0.0-0.9 [facility] Work Phone: Serum Scl-70 extractable nuc lear antibody assay (units/volume)on 01-30-2022 SCL-70 extractable nuclear Ab Qn (S) <0.2 AI 0.0-0.9 [facility] Work Phone: Serum Jang extractable nucl ear antibody detectionon 01-30-2022 Jang extractable nuclear Ab Ql (S) <0.2 AI 0.0-0.9 [facility] Work Phone: Serum [id number] measu rement by electrophoresison 01-30-2022 Alpha 1 globulin Elph [Mass/Vol] 0.2 g/dL 0.0-0.4 [facility] Work Phone: Alpha 1 globulin Elph [Mass/Vol] 1.6 g/dL 0.4-1.0 [facility] Work Phone: Serum classic neutrophil cyt oplasmic antibody assay (units/volume)on 01-30-2022 Neutrophil cytoplasmic Ab.classic Qn (S) 1:80 titer Neg:<1:20 [facility] Work Phone: Serum globulin measurement ( mass/volume)on 01-30-2022 Globulin (S) [Mass/Vol] 4.8 g/dL 2.2-3.9 [facility] Work Phone: Serum or plasma C reactive p rotein measurement (mass/volume)on 01-30-2022 CRP [Mass/Vol] 53.10 mg/L 0.0-3.0 [facility] Work Phone: Comment on above: C-Reactive Protein ( CRP) provides useful information for thediagnosis, therapy and monitoring of inflammatory processesand associated diseases. For the evaluation of Relative Riskfor Cardiovascular Disease, a High Sensitivity CRP (HSCRP)should be ordered. Serum or plasma IgA measurem ent (mass/volume)on 01-30-2022 IgA [Mass/Vol] 478 mg/dL 87-352 [facility] Work Phone: Serum or plasma IgG measurem ent (mass/volume)on 01-30-2022 IgG [Mass/Vol] 1630 mg/dL [phone] [facility] Work Phone: Serum or plasma IgM measurem ent (mass/volume)on 01-30-2022 IgM [Mass/Vol] 294 mg/dL 26-217 [facility] Work Phone: Serum or plasma beta globuli n measurement by electrophoresis (mass/volume)on 01-30-2022 Beta globulin Elph [Mass/Vol] 1.0 g/dL 0.7-1.3 [facility] Work Phone: Serum or plasma folate measu rement (mass/volume)on 01-30-2022 Folate [Mass/Vol] 13.50 ng/mL 3.1-55.4 [facility] Work Phone: Serum or plasma gamma globul in measurement by electrophoresis (mass/volume)on 01-30-2022 Gamma globulin Elph [Mass/Vol] 1.9 g/dL 0.4-1.8 [facility] Work Phone: Serum or plasma immunoelectr ophoresis interpretation (nominal result)on 01-30-2022 Interpretation IEP [Interp] Comment . [facility] Work Phone: Comment on above: No monoclonality det ected. Serum perinuclear neutrophil cytoplasmic antibody titer by immunofluorescenceon 01-30-2022 Neutrophil cytoplasmic Ab.perinuclear IF (S) [Titer] <1:20 titer Neg:<1:20 [facility] Work Phone: Comment on above: The presence of posi tive fluorescence exhibiting P-ANCA orC-ANCA patterns alone is not specific for the diagnosis ofWegener's Granulomatosis (WG) or microscopic polyangiitis.Decisions about treatment should not be based solely onANCA IFA results. The [employer] Consensusrecommends follow up testing of positive sera with both MA-3 and MPO-ANCA enzyme immunoassays. As many as 5% serumsamples are positive only by EIA. Ref. AM J Clin [id number];111:507-513. Serum tissue transglutaminas e IgA antibody assay (units/volume)on 01-30-2022 tTG IgA Qn (S) <2 U/mL 0-3 [facility] Work Phone: Comment on above: Negative 0 - 3 Weak Positive 4 - 10 Positive >10 Tissue Transglutaminase (tTG) has been identified as the endomysial antigen. Studies have demonstr- ated that endomysial IgA antibodies have over 99% specificity for gluten sensitive enteropathy. Thin prep Papanicolaou smear with manual screeningon 01-30-2022 Thin prep Papanicolaou smear with manual screening 153 U/L 84-246 [facility] Work Phone: Thin prep Papanicolaou smear with manual screening 0.8 0.7-1.7 [facility] Work Phone: Total protein bloodon 2021 Protein [Mass/Vol] 8.4 g/dL 6.0-8.5 [facility] Work Phone: [phone] Whole blood hemoglobin A1c/t otal hemoglobin ratio (mass fraction)on 01-30-2022 HbA1c (Bld) [Mass fraction] 11.4 % 3.8-5.6 [facility] Work Phone: Comment on above: Normal < 5.7 % Predi abetic 5.7 - 6.4 % Diabetic >or= 6.5 % Please note range changes. Absolute lymphocyte counton 01-26-2022 Lymphocytes Auto (Unsp spec) [#/Vol] 4.70 10*3/uL 0.83-4.51 [facility] Work Phone: Basophil percentageon 2021 Basophils/100 WBC (Bld) 0.4 % 0-1 [facility] Work Phone: Bilirubin [Mass/Vol] 0.40 mg/dL 0.20-1.00 [facility] Work Phone: Comment on above: For patients on eltr ombopag therapy, use of [place] TBIL is not recommended. Chloride [Moles/Vol] 101 mmol/L 98-107 [facility] Work Phone: Eosinophils/100 WBC (Bld) 0.2 % 0-5 [facility] Work Phone: Glucose [Mass/Vol] 320 mg/dL 74-106 [facility] Work Phone: Comment on above: Glucose result great er than or equal to 200 mg/dLsuggests DIABETES MELLITUS per A.D.A. criteria. Neutrophils (Bld) [#/Vol] 5.6 10*3/uL 2.0-7.7 [facility] Work Phone: Neutrophils/100 WBC (Bld) 50.6 % 47-70 [facility] Work Phone: [phone] Potassium [Moles/Vol] 3.6 mmol/L 3.5-5.1 [facility] Work Phone: Protein [Mass/Vol] 8.5 g/dL 6.4-8.2 [facility] Work Phone: [phone] Sodium [Moles/Vol] 136 mmol/L 136-145 [facility] Work Phone: WBC (Bld) [#/Vol] 11.1 10*3/uL 4.4-11.0 [facility] Work Phone: Blood erythrocytes count (nu mber/volume)on 01-26-2022 RBC (Bld) [#/Vol] 4.99 10*6/uL 4.2-5.4 [facility] Work Phone: [phone] Blood hemoglobin measurement (mass/volume)on 01-26-2022 Hemoglobin (Bld) [Mass/Vol] 12.9 g/dL 12.0-15.0 [facility] Work Phone: Blood lymphocytes/100 leukoc yteson 01-26-2022 Lymphocytes/100 WBC (Bld) 42.2 % 19-41 [facility] Work Phone: Blood monocytes/100 leukocyt eson 01-26-2022 Monocytes/100 WBC (Bld) 5.9 % 0-10 [facility] Work Phone: Blood platelet mean volumeon 01-26-2022 Platelet mean volume (Bld) [Entitic vol] 9.5 fL 6.2-12.0 [facility] Work Phone: Determination of erythrocyte mean corpuscular volume (MCV)on 01-26-2022 MCV (RBC) [Entitic vol] 77.8 fL 81-99 [facility] Work Phone: Hematocrit Auto (Bld) [Volum e fraction]on 01-26-2022 Hematocrit (Bld) [Volume fraction] 38.8 % 37-47 [facility] Work Phone: Laboratory - Chemistry and C hemistry - challengeon 01-26-2022 ALP [Catalytic activity/Vol] 85 U/L 45-117 [facility] Work Phone: ALT [Catalytic activity/Vol] 14 U/L 13-56 [facility] Work Phone: CO2 [Moles/Vol] 26.0 mmol/L 21.0-32.0 [facility] Work Phone: [phone] Globulin (S) [Mass/Vol] 5.3 g/dL 2.2-4.2 [facility] Work Phone: Lipase [Catalytic activity/Vol] 179 U/L 73-393 [facility] Work Phone: [phone] Urea nitrogen/Creatinine [Mass ratio] 13.1 mg/mg 10-20 [facility] Work Phone: Laboratory - Hematology and Cell countson 01-26-2022 Erythrocyte distribution width (RBC) [Entitic vol] 37.9 fL 35.1-43.9 [facility] Work Phone: [phone] Erythrocyte distribution width (RBC) [Ratio] 13.8 % 11.6-14.6 [facility] Work Phone: [phone] Immature granulocytes/100 WBC (Bld) 0.700 % 0.0-0.9 [facility] Work Phone: [phone] Comment on above: IG% - Immature Granu locytes (promyelocytes, myelocytes and metamyelocytes) > 1% indicates that a LEFT SHIFT is Present. MCH (RBC) [Entitic mass] 25.9 pg 27.0-32.0 [facility] Work Phone: [phone] Nucleated RBC/100 WBC (Bld) [Ratio] 0 % 0-5 [facility] Work Phone: [phone] MCHC Auto (RBC) [Mass/Vol]on 01-26-2022 MCHC (RBC) [Mass/Vol] 33.2 g/dL 32-36 [facility] Work Phone: [phone] Panel Informationon 01-26 Estimated Creatinine Clearance Calc 84.46 ml/min [facility] Work Phone: [phone] Estimated GFR (MDRD) Amer 92 mL/min >60 [facility] Work Phone: [phone] Comment on above: GFR Calc Estimated GFR (MDRD) Non-Af Amer 76 mL/min >60 [facility] Work Phone: [phone] Comment on above: Non- GFR Calc Platelets bldon 01-26-2022 Platelets (Bld) [#/Vol] 474 10*3/uL 150-450 [facility] Work Phone: [phone] Serum or plasma albumin hussein urement (mass/volume)on 01-26-2022 Albumin [Mass/Vol] 3.2 g/dL 3.2-5.0 [facility] Work Phone: [phone] Serum or plasma albumin/glob ulin mass ratioon 01-26-2022 Albumin/Globulin [Mass ratio] 0.6 {ratio} 0.9-2.4 [facility] Work Phone: Serum or plasma calcium hussein urement (mass/volume)on 01-26-2022 Calcium [Mass/Vol] 9.3 mg/dL 8.5-10.1 [facility] Work Phone: Serum or plasma creatinine m easurement (mass/volume)on 01-26-2022 Creatinine [Mass/Vol] 0.92 mg/dL 0.55-1.02 [facility] Work Phone: Comment on above: The validity of the calculated GFR & GFRAA in patients over 70 years has not been determined. Clinical correlation is essential. Serum or plasma urea nitroge n measurement (mass/volume)on 01-26-2022 Urea nitrogen [Mass/Vol] 12 mg/dL 7-18 [facility] Work Phone: Thin prep Papanicolaou smear with manual screeningon 01-26-2022 Thin prep Papanicolaou smear with manual screening 7 U/L 15-37 [facility] Work Phone: [phone] Thin prep Papanicolaou smear with manual screening 9 5-15 [facility] Work Phone: [phone] Absolute lymphocyte counton 01-23-2022 Lymphocytes Auto (Unsp spec) [#/Vol] 3.74 10*3/uL 0.83-4.51 [facility] Work Phone: Basophil percentageon 2021 Basophils/100 WBC (Bld) 0.4 % 0-1 [facility] Work Phone: Chloride [Moles/Vol] 97 mmol[facility]L 98-107 [facility]: Eosinophils/100 WBC (Bld) 0.4 % 0-5 [facility] Work Phone: Glucose [Mass/Vol] 362 mg/dL 74-106 [facility] Work Phone: Comment on above: Glucose result great er than or equal to 200 mg/dLsuggests DIABETES MELLITUS per A.D.A. criteria. Neutrophils (Bld) [#/Vol] 5.3 10*3/uL 2.0-7.7 [facility] Work Phone: [phone] Neutrophils/100 WBC (Bld) 53.8 % 47-70 [facility] Work Phone: [phone] Potassium [Moles/Vol] 4.0 mmol/L 3.5-5.1 [facility]: [phone] Sodium [Moles/Vol] 131 mmol/L 136-145 [facility] Work Phone: [phone] WBC (Bld) [#/Vol] 9.8 10*3/uL 4.4-11.0 [facility] Work Phone: [phone] Blood erythrocytes count (nu mber/volume)on 01-23-2022 RBC (Bld) [#/Vol] 5.18 10*6/uL 4.2-5.4 [facility]: [phone] Blood hemoglobin measurement (mass/volume)on 01-23-2022 Hemoglobin (Bld) [Mass/Vol] 13.4 g/dL 12.0-15.0 [facility] Work Phone: [phone] Blood lymphocytes/100 leukoc yteson 01-23-2022 Lymphocytes/100 WBC (Bld) 38.3 % 19-41 [facility] Work Phone: [phone] Blood monocytes/100 leukocyt eson 01-23-2022 Monocytes/100 WBC (Bld) 6.3 % 0-10 [facility] Work Phone: [phone] Blood platelet mean volumeon 01-23-2022 Platelet mean volume (Bld) [Entitic vol] 9.2 fL 6.2-12.0 [facility] Work Phone: [phone] Determination of erythrocyte mean corpuscular volume (MCV)on 01-23-2022 MCV (RBC) [Entitic vol] 78.2 fL 81-99 [facility] Work Phone: [phone] Hematocrit Auto (Bld) [Volum e fraction]on 01-23-2022 Hematocrit (Bld) [Volume fraction] 40.5 % 37-47 [facility] Work Phone: [phone] Laboratory - Chemistry and C hemistry - challengeon 01-23-2022 CO2 [Moles/Vol] 24.0 mmol/L 21.0-32.0 [facility] Work Phone: [phone] Urea nitrogen/Creatinine [Mass ratio] 17.3 mg/mg 10-20 [facility] Work Phone: [phone] Laboratory - Hematology and Cell countson 01-23-2022 Erythrocyte distribution width (RBC) [Entitic vol] 38.2 fL 35.1-43.9 [facility] Work Phone: [phone] Erythrocyte distribution width (RBC) [Ratio] 13.5 % 11.6-14.6 [facility] Work Phone: [phone] Immature granulocytes/100 WBC (Bld) 0.800 % 0.0-0.9 [facility] Work Phone: [phone] Comment on above: IG% - Immature Granu locytes (promyelocytes, myelocytes and metamyelocytes) > 1% indicates that a LEFT SHIFT is Present. MCH (RBC) [Entitic mass] 25.9 pg 27.0-32.0 [facility] Work Phone: [phone] Nucleated RBC/100 WBC (Bld) [Ratio] 0 % 0-5 [facility] Work Phone: [phone] MCHC Auto (RBC) [Mass/Vol]on 01-23-2022 MCHC (RBC) [Mass/Vol] 33.1 g/dL 32-36 [facility] Work Phone: No Panel Informationon 01-23 Estimated Creatinine Clearance Calc 79.29 ml/min [facility] Work Phone: [phone] Estimated GFR (MDRD) Amer 85 mL/min >60 [facility] Work Phone: [phone] Comment on above: GFR Calc Estimated GFR (MDRD) Non-Af Amer 70 mL/min >60 [facility] Work Phone: [phone] Comment on above: Non- GFR Calc Platelets bldon 01-23-2022 Platelets (Bld) [#/Vol] 470 10*3/uL 150-450 [facility] Work Phone: Serum or plasma calcium hussein urement (mass/volume)on 01-23-2022 Calcium [Mass/Vol] 9.6 mg/dL 8.5-10.1 [facility] Work Phone: Serum or plasma creatinine m easurement (mass/volume)on 01-23-2022 Creatinine [Mass/Vol] 0.98 mg/dL 0.55-1.02 [facility] Work Phone: Comment on above: The validity of the calculated GFR & GFRAA in patients over 70 years has not been determined. Clinical correlation is essential. Serum or plasma urea nitroge n measurement (mass/volume)on 01-23-2022 Urea nitrogen [Mass/Vol] 17 mg/dL 7-18 [facility] Work Phone: Thin prep Papanicolaou smear with manual screeningon 01-23-2022 Thin prep Papanicolaou smear with manual screening 10 5-15 [facility] Work Phone: Glucose Glucometer (BldC) [M ass/Vol]on 01-22-2022 Glucose [Mass/Vol] 320 mg/dL 74-106 [facility] Work Phone: Comment on above: MANAGEMENT OF PATIEN T CARE PER NURSING PROTOCOL Glucose Glucometer (BldC) [M ass/Vol]on 01-16-2022 Glucose [Mass/Vol] 440 mg/dL 74-106 [facility] Work Phone: Comment on above: MANAGEMENT OF PATIEN T CARE PER NURSING PROTOCOL Absolute lymphocyte counton 11-16-2021 Lymphocytes Auto (Unsp spec) [#/Vol] 2.57 10*3/uL 0.83-4.51 [facility] Work Phone: Basophil percentageon 2021 Basophils/100 WBC (Bld) 0.4 % 0-1 [facility] Work Phone: [phone] Bilirubin [Mass/Vol] 0.50 mg/dL 0.20-1.00 [facility] Work Phone: Comment on above: For patients on eltr ombopag therapy, use of [employer] [place] TBIL is not recommended. Chloride [Moles/Vol] 99 mmol/L 98-107 [facility] Work Phone: Eosinophils/100 WBC (Bld) 0.6 % 0-5 [facility] Work Phone: Glucose [Mass/Vol] 331 mg/dL 74-106 [facility] Work Phone: Comment on above: Glucose result great er than or equal to 200 mg/dLsuggests DIABETES MELLITUS per A.D.A. criteria. Neutrophils (Bld) [#/Vol] 7.4 10*3/uL 2.0-7.7 [facility] Work Phone: Neutrophils/100 WBC (Bld) 68.0 % 47-70 [facility] Work Phone: Potassium [Moles/Vol] 4.1 mmol/L 3.5-5.1 [facility] Work Phone: Protein [Mass/Vol] 8.7 g/dL 6.4-8.2 [facility] Work Phone: Sodium [Moles/Vol] 133 mmol/L 136-145 [facility] Work Phone: WBC (Bld) [#/Vol] 10.9 10*3/uL 4.4-11.0 [facility] Work Phone: Blood erythrocytes count (nu mber/volume)on 11-16-2021 RBC (Bld) [#/Vol] 4.48 10*6/uL 4.2-5.4 [facility] Work Phone: Blood hemoglobin measurement (mass/volume)on 11-16-2021 Hemoglobin (Bld) [Mass/Vol] 11.9 g/dL 12.0-15.0 [facility] Work Phone: Blood lymphocytes/100 leukoc yteson 05-08-2022 Lymphocytes/100 WBC (Bld) 23.5 % 19-41 [facility] Work Phone: Blood monocytes/100 leukocyt eson 11-16-2021 Monocytes/100 WBC (Bld) 6.7 % 0-10 [facility] Work Phone: Blood platelet mean volumeon 11-16-2021 Platelet mean volume (Bld) [Entitic vol] 9.2 fL 6.2-12.0 [facility] Work Phone: Determination of erythrocyte mean corpuscular volume (MCV)on 11-16-2021 MCV (RBC) [Entitic vol] 81.9 fL 81-99 [facility] Work Phone: Hematocrit Auto (Bld) [Volum e fraction]on 11-16-2021 Hematocrit (Bld) [Volume fraction] 36.7 % 37-47 [facility] Work Phone: Laboratory - Chemistry and C hemistry - challengeon 11-16-2021 ALP [Catalytic activity/Vol] 130 U/L 45-117 [facility] Work Phone: ALT [Catalytic activity/Vol] 12 U/L 13-56 [facility] Work Phone: CO2 [Moles/Vol] 27.0 mmol/L 21.0-32.0 [facility] Work Phone: Globulin (S) [Mass/Vol] 6.0 g/dL 2.2-4.2 [facility] Work Phone: Urea nitrogen/Creatinine [Mass ratio] 10.7 mg/mg 10-20 [facility] Work Phone: Laboratory - Hematology and Cell countson 11-16-2021 Erythrocyte distribution width (RBC) [Entitic vol] 38.0 fL 35.1-43.9 [facility] Work Phone: Erythrocyte distribution width (RBC) [Ratio] 12.7 % 11.6-14.6 [facility] Work Phone: Immature granulocytes/100 WBC (Bld) 0.800 % 0.0-0.9 [facility] Work Phone: [phone] Comment on above: IG% - Immature Granu locytes (promyelocytes, myelocytes and metamyelocytes) > 1% indicates that a LEFT SHIFT is Present. MCH (RBC) [Entitic mass] 26.6 pg 27.0-32.0 [facility] Work Phone: [phone] Nucleated RBC/100 WBC (Bld) [Ratio] 0 % 0-5 [facility] Work Phone: [phone] MCHC Auto (RBC) [Mass/Vol]on 11-16-2021 MCHC (RBC) [Mass/Vol] 32.4 g/dL 32-36 [facility] Work Phone: [phone] Panel Informationon 11-16 Estimated Creatinine Clearance Calc 103.61 ml/min [facility] Work Phone: [phone] Estimated GFR (MDRD) Amer 117 mL/min >60 [facility] Work Phone: [phone] Comment on above: GFR Calc Estimated GFR (MDRD) Non-Af Amer 96 mL/min >60 [facility] Work Phone: [phone] Comment on above: Non- GFR Calc Platelets bldon 11-16-2021 Platelets (Bld) [#/Vol] 471 10*3/uL 150-450 [facility] Work Phone: [phone] Serum or plasma albumin hussein urement (mass/volume)on 11-16-2021 Albumin [Mass/Vol] 2.7 g/dL 3.2-5.0 [facility] Work Phone: [phone] Serum or plasma albumin/glob ulin mass ratioon 11-16-2021 Albumin/Globulin [Mass ratio] 0.4 {ratio} 0.9-2.4 [facility] Work Phone: [phone] Serum or plasma calcium hussein urement (mass/volume)on 11-16-2021 Calcium [Mass/Vol] 8.9 mg/dL 8.5-10.1 [facility] Work Phone: Serum or plasma creatinine m easurement (mass/volume)on 11-16-2021 Creatinine [Mass/Vol] 0.75 mg/dL 0.55-1.02 [facility] Work Phone: Comment on above: The validity of the calculated GFR & GFRAA in patients over 70 years has not been determined. Clinical correlation is essential. Serum or plasma urea nitroge n measurement (mass/volume)on 11-16-2021 Urea nitrogen [Mass/Vol] 8 mg/dL 7-18 [facility] Work Phone: Thin prep Papanicolaou smear with manual screeningon 11-16-2021 Thin prep Papanicolaou smear with manual screening 6 U/L 15-37 [facility] Work Phone: Thin prep Papanicolaou smear with manual screening 7 5-15 [facility] Work Phone: [phone] Absolute lymphocyte counton 10-29-2021 Lymphocytes Auto (Unsp spec) [#/Vol] 2.98 10*3/uL 0.83-4.51 [facility] Work Phone: Basophil percentageon 2021 Basophils/100 WBC (Bld) 0.5 % 0-1 [facility] Work Phone: Bilirubin [Mass/Vol] 0.30 mg/dL 0.20-1.00 [facility] Work Phone: Comment on above: For patients on eltr ombopag therapy, use of [employer] [place] TBIL is not recommended. Chloride [Moles/Vol] 99 mmol/L 98-107 [facility] Work Phone: Eosinophils/100 WBC (Bld) 0.2 % 0-5 [facility] Work Phone: [phone] Glucose [Mass/Vol] 387 mg/dL 74-106 [facility] Work Phone: Comment on above: Glucose result great er than or equal to 200 mg/dLsuggests DIABETES MELLITUS per A.D.A. criteria. Neutrophils (Bld) [#/Vol] 9.2 10*3/uL 2.0-7.7 [facility] Work Phone: [phone] Neutrophils/100 WBC (Bld) 70.3 % 47-70 [facility] Work Phone: [phone] Potassium [Moles/Vol] 4.4 mmol/L 3.5-5.1 [facility] Work Phone: [phone] Protein [Mass/Vol] 9.0 g/dL 6.4-8.2 [facility] Work Phone: [phone] Sodium [Moles/Vol] 130 mmol/L 136-145 [facility] Work Phone: [phone] WBC (Bld) [#/Vol] 13.0 10*3/uL 4.4-11.0 [facility] Work Phone: [phone] Blood erythrocytes count (nu mber/volume)on 10-29-2021 RBC (Bld) [#/Vol] 4.95 10*6/uL 4.2-5.4 [facility] Work Phone: [phone] Blood hemoglobin measurement (mass/volume)on 10-29-2021 Hemoglobin (Bld) [Mass/Vol] 13.3 g/dL 12.0-15.0 [facility] Work Phone: [phone] Blood lymphocytes/100 leukoc yteson 10-29-2021 Lymphocytes/100 WBC (Bld) 22.9 % 19-41 [facility] Work Phone: [phone] Blood monocytes/100 leukocyt eson 10-29-2021 Monocytes/100 WBC (Bld) 5.3 % 0-10 [facility] Work Phone: [phone] Blood platelet mean volumeon 10-29-2021 Platelet mean volume (Bld) [Entitic vol] 9.0 fL 6.2-12.0 [facility] Work Phone: [phone] Determination of erythrocyte mean corpuscular volume (MCV)on 10-29-2021 MCV (RBC) [Entitic vol] 80.0 fL 81-99 [facility] Work Phone: Hematocrit Auto (Bld) [Volum e fraction]on 10-29-2021 Hematocrit (Bld) [Volume fraction] 39.6 % 37-47 [facility] Work Phone: [phone] Laboratory - Chemistry and C hemistry - challengeon 10-29-2021 ALP [Catalytic activity/Vol] 156 U/L 45-117 [facility] Work Phone: [phone] ALT [Catalytic activity/Vol] 23 U/L 13-56 [facility] Work Phone: [phone] CO2 [Moles/Vol] 25.0 mmol/L 21.0-32.0 [facility] Work Phone: [phone] Globulin (S) [Mass/Vol] 5.9 g/dL 2.2-4.2 [facility] Work Phone: [phone] Urea nitrogen/Creatinine [Mass ratio] 13.8 mg/mg 10-20 [facility] Work Phone: [phone] Laboratory - Hematology and Cell countson 10-29-2021 Erythrocyte distribution width (RBC) [Entitic vol] 37.2 fL 35.1-43.9 [facility] Work Phone: [phone] Erythrocyte distribution width (RBC) [Ratio] 13.1 % 11.6-14.6 [facility] Work Phone: [phone] Immature granulocytes/100 WBC (Bld) 0.800 % 0.0-0.9 [facility] Work Phone: [phone] Comment on above: IG% - Immature Granu locytes (promyelocytes, myelocytes and metamyelocytes) > 1% indicates that a LEFT SHIFT is Present. MCH (RBC) [Entitic mass] 26.9 pg 27.0-32.0 [facility] Work Phone: [phone] Nucleated RBC/100 WBC (Bld) [Ratio] 0 % 0-5 [facility] Work Phone: [phone] MCHC Auto (RBC) [Mass/Vol]on 10-29-2021 MCHC (RBC) [Mass/Vol] 33.6 g/dL 32-36 [facility]: No Panel Informationon 10-29 Estimated Creatinine Clearance Calc 89.32 ml/min [facility] Work Phone: Estimated GFR (MDRD) Amer 99 mL/min >60 [facility] Work Phone: Comment on above: GFR Calc Estimated GFR (MDRD) Non-Af Amer 82 mL/min >60 [facility] Work Phone: Comment on above: Non- GFR Calc Platelets bldon 10-29-2021 Platelets (Bld) [#/Vol] 460 10*3/uL 150-450 [facility] Work Phone: Serum or plasma albumin hussein urement (mass/volume)on 10-29-2021 Albumin [Mass/Vol] 3.1 g/dL 3.2-5.0 [facility] Work Phone: Serum or plasma albumin/glob ulin mass ratioon 10-29-2021 Albumin/Globulin [Mass ratio] 0.5 {ratio} 0.9-2.4 [facility] Work Phone: Serum or plasma calcium hussein urement (mass/volume)on 10-29-2021 Calcium [Mass/Vol] 9.0 mg/dL 8.5-10.1 [facility] Work Phone: Serum or plasma choriogonado tropin detectionon 10-29-2021 HCG ( test) Ql < 1 mIU/mL <4 [facility] Work Phone: Comment on above: hCG levels with Gest ational AgeGestational Age hCG mIU/mL (IU/L)0.2 - 1 week 5 - 501-2 weeks 50 - 5002-3 weeks 100 - 97652-3 weeks 500 - 355096-3 weeks 1000 - 647789-7 weeks 10448 - 100,0006-8 weeks 77780 - 200,0002-3 months 87395 - 100,000 Serum or plasma creatinine m easurement (mass/volume)on 10-29-2021 Creatinine [Mass/Vol] 0.87 mg/dL 0.55-1.02 [facility] Work Phone: Comment on above: The validity of the calculated GFR & GFRAA in patients over 70 years has not been determined. Clinical correlation is essential. Serum or plasma urea nitroge n measurement (mass/volume)on 10-29-2021 Urea nitrogen [Mass/Vol] 12 mg/dL 7-18 [facility] Work Phone: Thin prep Papanicolaou smear with manual screeningon 10-29-2021 Thin prep Papanicolaou smear with manual screening 13 U/L 15-37 [facility] Work Phone: Thin prep Papanicolaou smear with manual screening 6 5-15 [facility] Work Phone: Absolute lymphocyte counton 08-10-2021 Lymphocytes Auto (Unsp spec) [#/Vol] 0.86 10*3/uL 0.83-4.51 [facility] Work Phone: Basophil percentageon 2021 Basophil percentage 5-10 SEEN /hpf [facility] Work Phone: Basophils/100 WBC (Bld) 0.2 % 0-1 [facility] Work Phone: Chloride [Moles/Vol] 100 mmol/L 98-107 [facility] Work Phone: Eosinophils/100 WBC (Bld) 0.3 % 0-5 [facility] Work Phone: Glucose [Mass/Vol] 406 mg/dL 74-106 [facility] Work Phone: Comment on above: Glucose result great er than or equal to 200 mg/dLsuggests DIABETES MELLITUS per A.D.A. criteria. Neutrophils (Bld) [#/Vol] 12.4 10*3/uL 2.0-7.7 [facility] Work Phone: Neutrophils/100 WBC (Bld) 89.0 % 47-70 [facility] Work Phone: Potassium [Moles/Vol] 4.2 mmol/L 3.5-5.1 [facility] Work Phone: Sodium [Moles/Vol] 134 mmol/L 136-145 [facility] Work Phone: [phone] WBC (Bld) [#/Vol] 14.0 10*3/uL 4.4-11.0 [facility] Work Phone: [phone] Beta hCG serum qualon 2021 Beta HCG ( test) Ql Negative [facility] Work Phone: Bilirubin Test strip Ql (U)o n 08-10-2021 Bilirubin Ql (U) Negative Negative [facility] Work Phone: Blood erythrocytes count (nu mber/volume)on 08-10-2021 RBC (Bld) [#/Vol] 5.34 10*6/uL 4.2-5.4 [facility] Work Phone: [phone] Blood hemoglobin measurement (mass/volume)on 08-10-2021 Hemoglobin (Bld) [Mass/Vol] 14.7 g/dL 12.0-15.0 [facility] Work Phone: Blood lymphocytes/100 leukoc yteson 08-10-2021 Lymphocytes/100 WBC (Bld) 6.1 % 19-41 [facility] Work Phone: Blood monocytes/100 leukocyt eson 08-10-2021 Monocytes/100 WBC (Bld) 4.0 % 0-10 [facility] Work Phone: Blood platelet mean volumeon 08-10-2021 Platelet mean volume (Bld) [Entitic vol] 9.6 fL 6.2-12.0 [facility] Work Phone: Determination of erythrocyte mean corpuscular volume (MCV)on 08-10-2021 MCV (RBC) [Entitic vol] 82.4 fL 81-99 [facility] Work Phone: [phone] Glucose Glucometer (BldC) [M ass/Vol]on 08-10-2021 Glucose [Mass/Vol] 377 mg/dL 70-110 [facility] Work Phone: Comment on above: MANAGEMENT OF PATIEN T CARE PER NURSING PROTOCOL Hematocrit Auto (Bld) [Volum e fraction]on 08-10-2021 Hematocrit (Bld) [Volume fraction] 44.0 % 37-47 [facility] Work Phone: [phone] Ketones Test strip Ql (U)on 08-10-2021 Ketones Ql (U) 150 mg/dl Negative [facility] Work Phone: [phone] Comment on above: CRITICAL VALUE *HCRI TICAL VALUE VERIFIED. CALLED TO Rafa PERAZA RN (ED)08/10/21 [id number] Rebolledo.RESULTS READ BACK BY SAME . Laboratory - Chemistry and C hemistry - challengeon 08-10-2021 CO2 [Moles/Vol] 23.0 mmol/L 21.0-32.0 [facility] Work Phone: [phone] Urea nitrogen/Creatinine [Mass ratio] 18.6 mg/mg 10-20 [facility] Work Phone: [phone] Laboratory - Hematology and Cell countson 08-10-2021 Erythrocyte distribution width (RBC) [Entitic vol] 39.0 fL 35.1-43.9 [facility] Work Phone: [phone] Erythrocyte distribution width (RBC) [Ratio] 13.1 % 11.6-14.6 [facility] Work Phone: [phone] Immature granulocytes/100 WBC (Bld) 0.400 % 0.0-0.9 [facility] Work Phone: [phone] Comment on above: IG% - Immature Granu locytes (promyelocytes, myelocytes and metamyelocytes) > 1% indicates that a LEFT SHIFT is Present. MCH (RBC) [Entitic mass] 27.5 pg 27.0-32.0 [facility] Work Phone: [phone] Nucleated RBC/100 WBC (Bld) [Ratio] 0 % 0-5 [facility] Work Phone: [phone] MCHC Auto (RBC) [Mass/Vol]on 08-10-2021 MCHC (RBC) [Mass/Vol] 33.4 g/dL 32-36 [facility] Work Phone: Mucus LM Ql (Urine sed)on Mucus Ql (Urine sed) 0 SEEN /hpf [facility] Work Phone: Nitrite Test strip Ql (U)on 08-10-2021 Nitrite Ql (U) Negative Negative [facility] Work Phone: No Panel Informationon 08-10 Estimated Creatinine Clearance Calc 90.36 ml/min [facility] Work Phone: [phone] Estimated GFR (MDRD) Amer 100 mL/min >60 [facility] Work Phone: Comment on above: GFR Calc Estimated GFR (MDRD) Non-Af Amer 83 mL/min >60 [facility] Work Phone: Comment on above: Non- GFR Calc Platelets bldon 08-10-2021 Platelets (Bld) [#/Vol] 343 10*3/uL 150-450 [facility] Work Phone: Protein Test strip Ql (U)on 08-10-2021 Protein Ql (U) 30 mg/dl Negative [facility] Work Phone: [phone] Serum or plasma calcium hussein urement (mass/volume)on 08-10-2021 Calcium [Mass/Vol] 8.8 mg/dL 8.5-10.1 [facility] Work Phone: Serum or plasma creatinine m easurement (mass/volume)on 08-10-2021 Creatinine [Mass/Vol] 0.86 mg/dL 0.55-1.02 [facility] Work Phone: Comment on above: The validity of the calculated GFR & GFRAA in patients over 70 years has not been determined. Clinical correlation is essential. Serum or plasma urea nitroge n measurement (mass/volume)on 08-10-2021 Urea nitrogen [Mass/Vol] 16 mg/dL 7-18 [facility] Work Phone: Squamous epithelial cells de tection in urine sediment by light microscopyon 08-10-2021 Epithelial cells.squamous LM Ql (Urine sed) 0-5 SEEN /hpf [facility] Work Phone: Thin prep Papanicolaou smear with manual screeningon 08-10-2021 Thin prep Papanicolaou smear with manual screening 11 5-15 [facility] Work Phone: Urine blood detectionon 07-14 RBC Ql (U) 250 /ul Negative [facility] Work Phone: [phone] RBC Ql (U) > 100 SEEN /hpf [facility] Work Phone: [phone] Urine clarityon 08-10-2021 Clarity (U) Cloudy Clear [facility] Work Phone: Urine color determinationon 08-10-2021 Color (U) Yellow Yellow [facility] Work Phone: [phone] Urine glucose detectionon Glucose Ql (U) 1000 mg/dl Normal [facility] Work Phone: [phone] Urine leukocyte esterase det ection by dipstickon 08-10-2021 Leukocyte esterase Test strip Ql (U) 25 /ul Negative [facility] Work Phone: Urine pHon 08-10-2021 pH (U) 7.0 [pH] [facility] Work Phone: Urine sediment bacteria coun t by microscopy (number/high power field)on 08-10-2021 Bacteria LM.HPF (Urine sed) [#/Area] 1 /[HPF] None Seen [facility] Work Phone: Urine specific gravity measu rementon 08-10-2021 Specific gravity (U) [Rel density] 1.005 [facility] Work Phone: Urobilinogen Auto test strip Ql (U)on 08-10-2021 Urobilinogen Ql (U) 1 mg/dl Normal [facility] Work Phone: XR Chest PA and Lateralon IMPRESSION: No acute radiographic abnormality. Grade Foreman: OLGA Transcribe Date/Time: May 15 2021 10:07A Dictated by : ELISEO LYON MD This examination was interpreted and the report reviewed and electronically signed by: ELISEO LYON MD on May 15 2021 10:08AM [facility] DIVISION OF RADIOLOGY * * *Final [...] soft tissues: Unremarkable. DIVISION OF RADIOLOGY [facility] - 05/15/2021 * * *Final Report* * [...] Unremarkable. IMPRESSION IMPRESSION: No acute radiographic abnormality. [facility] Transcribe Date/Time: May 15 2021 10:07A Dictated by : ELISEO LYON MD This examination was interpreted and the report reviewed and electronically signed by: ELISEO LYON MD on May 15 2021 10:08AM [facility] Radiology Study observation (narrative) Melissa gupta [facility] XR Chest PA and LateralOrder ed By: Cc Provider on 05-15-2021 [facility] Anaerobic culture Bacteria identified Anaer cx Nom (Unsp spec) No anaerobic bacteria isolated. [facility] Work Phone: Bacteria identified Anaer cx Nom (Unsp spec) Anaerobic microbial culture No anaerobic bacteria isolated. [facility] Work Phone: Bacteria identified Cx Nom ( Wound) Wound Culture Meth. resistant Stap h. aureus [facility] Work Phone: [phone] Wound Culture Streptococcus agalactiae (B) [facility] Work Phone: [phone] COVID-19 virus antigen assay SARS-CoV-2 (COVID-19) Ag IA.rapid Ql (Resp) [facility] Work Phone: Culture, urine Bacteria identified Cx Nom (U) Culture exhibits no growth. [facility] Work Phone: Gram stain for investigation of transfusion reaction Microscopic observation Gram stain Nom (Unsp spec) [facility] Work Phone: Laboratory - Microbiology an d Antimicrobial susceptibility Bacteria identified Cx Nom (Bld) No growth in 5 days. [facility] Work Phone: [phone] Routine wound culture Bacteria identified Cx Nom (Wound) No growth aerobically. [facility] Work Phone: Vital Signs Date Time Vital Sign Value Performing Clinician Facility 01-01-2025 13:20-0400 Diastolic blood pressure 87 mm[Hg] Amy Solorzano [employer]ASER PRINT OPERATOR-C Work Phone: [facility] 01-01-2025 13:20-0400 Heart rate 100 /min Amy Solorzano [employer] PR[employer] OPERATOR-C Work Phone: [facility] 01-01-2025 13:20-0400 Respiratory rate 20 /min Amy Solorzano [employer] PR[employer] OPERATOR[employer]C Work Phone: [facility] 01-01-2025 13:20-0400 SaO2% (BldA) [Mass fraction] 98 % Amy Solorzano [employer] PRINT OPERATOR-C Work Phone: [facility] 01-01-2025 13:20-0400 Systolic blood pressure 103 mm[Hg] Amy Solorzano [employer]ER PRINT OPERATOR-C Work Phone: [facility] 01-01-2025 12:00-0400 Body temperature 98.1 [degF] Amy Solorzano [employer]ER PRINT OPERATOR-C Work Phone: [facility] 01-01-2025 04:10-0400 Body mass index (BMI) [Ratio] 38.9 kg/m2 Amykeiko Solorzano [employer] OPERATOR[employer] Work Phone: 0(620)229-882068 [place] [address] 01-01-2025 04:10-0400 Body weight 109.8 kg Amykeiko Solorzano [employer] OPERATOR[employer] Work Phone: 7(296)350-332368 [place] [address] 12-31-2024 23:46-0400 Body height 167.64 cm Amypalma Solorzano [employer] PRINT OPERATOR-C Work Phone: 4(626)768-916168 [place] [address] 12-31-2024 23:18-0400 Body temperature 98.3 [degF] Amykeiko Solorzano [employer] OPERATOR[employer] Work Phone: 8(448)941-330368 [place] [address] 12-31-2024 23:18-0400 Diastolic blood pressure 103 mm[Hg] Amykeiko Solorzano [employer] OPERATOR[employer]C Work Phone: 7(152)449-884368 [place] [address] 12-31-2024 23:18-0400 Heart rate 88 /min Amypalma Solorzano [employer] OPERATOR[employer]C Work Phone: 0(520)059-084568 [place] [address] 12-31-2024 23:18-0400 Respiratory rate 16 /min Amy Rashad [employer] PRINT OPERATOR-C Work Phone: 8(354)650-188468 [place] [address] 12-31-2024 23:18-0400 SaO2% (BldA) [Mass fraction] 99 % Amykeiko Solorzano [employer] PR[employer] OPERATOR[employer]C Work Phone: 9(597)741-757168 [place] [address] 12-31-2024 23:18-0400 Systolic blood pressure 156 mm[Hg] Amy Solorzano [employer]ER PRINT OPERATOR-C Work Phone: 5(264)056-169568 [place] [address] 12-31-2024 18:33-0400 Body height 167.64 cm Amykeiko Solorzano [employer] PR[employer] OPERATOR[employer]C Work Phone: 2(856)305-808268 [place] [address] 12-31-2024 18:33-0400 Body mass index (BMI) [Ratio] 38.4 kg/m2 Amykeiko Solorzano [employer] OPERATOR[employer]C Work Phone: 6(767)264-224668 [place] [address] 12-31-2024 18:33-0400 Body weight 107.95 kg Amy Solorzano [employer] PRINT OPERATOR-C Work Phone: 7(235)916-109568 [place] [address] 12-31-2024 08:00-0400 Body temperature 98.2 [degF] Amy Solorzano [employer]ER PRINT OPERATOR-C Work Phone: 4(359)815-101068 [place] [address] 12-31-2024 08:00-0400 Diastolic blood pressure 81 mm[Hg] Amy Solorzano [employer]ER PRINT OPERATOR-C Work Phone: 7(467)139-152868 [place] [address] 12-31-2024 08:00-0400 Heart rate 73 /min Amy Solorzano [employer]ER PRINT OPERATOR-C Work Phone: 0(925)997-234568 [place] [address] 12-31-2024 08:00-0400 Respiratory rate 23 /min Amy Solorzano [employer]ER PRINT OPERATOR-C Work Phone: 3(778)149-863568 [place] [address] 12-31-2024 08:00-0400 SaO2% (BldA) [Mass fraction] 98 % Amy Solorzano [employer] PRINT OPERATOR-C Work Phone: 1(851)225-938668 [place] [address] 12-31-2024 08:00-0400 Systolic blood pressure 123 mm[Hg] Amy Solorzano [employer]ER PRINT OPERATOR-C Work Phone: 5(291)220-987168 [place] [address] 12-31-2024 05:29-0400 Body mass index (BMI) [Ratio] 39.2 kg/m2 Amy Solorzano [employer]ER PRINT OPERATOR-C Work Phone: 6(818)592-388668 [place] [address] 12-31-2024 05:29-0400 Body weight 110.1 kg Amy Solorzano [employer]ER PRINT OPERATOR-C Work Phone: 1(267)860-451068 [place] [address] 12-30-2024 13:37-0400 Body height 167.64 cm Amy Solorzano [employer]ER PRINT OPERATOR-C Work Phone: 9(686)424-492668 [place] [address] 12-30-2024 12:35-0400 Body temperature 97.4 [degF] Amy Solorzano [employer]ER PRINT OPERATOR-C Work Phone: 1(162)058-682568 [place] [address] 12-30-2024 12:35-0400 Diastolic blood pressure 93 mm[Hg] Amy Solorzano [employer]ER PRINT OPERATOR-C Work Phone: 3(009)092-156168 [place] [address] 12-30-2024 12:35-0400 Heart rate 94 /min Amy Solorzano [employer] PRINT OPERATOR-C Work Phone: 5(834)034-392068 [place] [address] 12-30-2024 12:35-0400 Respiratory rate 18 /min Amy Solorzano [employer] PRINT OPERATOR-C Work Phone: 0(351)366-119968 [place] [address] 12-30-2024 12:35-0400 SaO2% (BldA) [Mass fraction] 96 % Amy Solorzano [employer] PRINT OPERATOR-C Work Phone: 9(513)450-885268 [place] [address] 12-30-2024 12:35-0400 Systolic blood pressure 126 mm[Hg] Amy Solorzano L[employer]ER PRINT OPERATOR-C Work Phone: 4(855)821-352268 [place] [address] 12-30-2024 10:25-0400 Body height 167.64 cm Amy Solorzano [employer]ER PRINT OPERATOR-C Work Phone: 2(322)299-382368 [place] [address] 12-30-2024 10:25-0400 Body mass index (BMI) [Ratio] 37.7 kg/m2 Amy Solorzano [employer]ER PRINT OPERATOR-C Work Phone: 8(643)522-558068 [place] [address] 12-30-2024 10:25-0400 Body weight 106 kg Amy Solorzano [employer]ER PRINT OPERATOR-C Work Phone: 7(037)394-033668 [place] [address] 12-13-2024 08:30-0400 Body height 167.64 cm Amykeiko Solorzano [employer]ER PRINT OPERATOR-C Work Phone: 3(013)341-836668 [place] [address] 12-13-2024 08:30-0400 Body mass index (BMI) [Ratio] 39.2 kg/m2 Amypalma Solorzano [employer]ER PRINT OPERATOR-C Work Phone: 5(599)129-141668 [place] [address] 12-13-2024 08:30-0400 Body weight 110.22 kg mAy Solorzano LASER PRINT OPERATOR-C Work Phone: 3(820)620-299668 [place] [address] 12-13-2024 08:30-0400 Diastolic blood pressure 97 mm[Hg] Amy Solorzano L[employer]ER PRINT OPERATOR-C Work Phone: 7(994)077-314268 [place] [address] 12-13-2024 08:30-0400 Heart rate 93 /min Amy Solorzano [employer]ER PRINT OPERATOR-C Work Phone: 3(447)930-291768 [place] [address] 12-13-2024 08:30-0400 Respiratory rate 19 /min Amy Solorzano LASER PRINT OPERATOR-C Work Phone: 0(207)616-234168 [place] [address] 12-13-2024 08:30-0400 SaO2% (BldA) [Mass fraction] 97 % Amy Solorzano L[employer]ER PRINT OPERATOR-C Work Phone: 8(177)755-308834 [place] [address] 12-13-2024 08:30-0400 Systolic blood pressure 138 mm[Hg] Amy Solorzano LASER PRINT OPERATOR-C Work Phone: 0(482)687-562668 [place] [address] 11-28-2024 13:00-0400 Body temperature 98 [degF] Amy Solorzano LASER PRINT OPERATOR-C Work Phone: 5(487)328-293668 [place] [address] 11-28-2024 13:00-0400 Diastolic blood pressure 96 mm[Hg] Amy Solorzano LASER PRINT OPERATOR-C Work Phone: 5(365)865-731202 [address] 11-28-2024 13:00-0400 Heart rate 60 /min Amy Solorzano LASER PRINT OPERATOR-C Work Phone: 8(913)395-123768 [place] [address] 11-28-2024 13:00-0400 SaO2% (BldA) [Mass fraction] 99 % Amy Solorzano LASER PRINT OPERATOR-C Work Phone: 2(441)343-528768 [place] [address] 11-28-2024 13:00-0400 Systolic blood pressure 156 mm[Hg] Amy Solorzano LASER PRINT OPERATOR-C Work Phone: 5(807)431-346702 [address] 11-28-2024 08:25-0400 Body temperature 98.1 [degF] Amy Solorzano LASER PRINT OPERATOR-C Work Phone: 7(793)136-371368 [place] [address] 11-28-2024 08:25-0400 Diastolic blood pressure 84 mm[Hg] Amy Solorzano LASER PRINT OPERATOR-C Work Phone: 3(759)214-602668 [place] [address] 11-28-2024 08:25-0400 Heart rate 75 /min Amy Solorzano LASER PRINT OPERATOR-C Work Phone: 6(560)784-712702 [address] 11-28-2024 08:25-0400 Respiratory rate 18 /min Amy Solorzano LASER PRINT OPERATOR-C Work Phone: 6(427)126-706768 [place] [address] 11-28-2024 08:25-0400 SaO2% (BldA) [Mass fraction] 97 % Amy Solorzano LASER PRINT OPERATOR-C Work Phone: 7(609)602-962468 [place] [address] 11-28-2024 08:25-0400 Systolic blood pressure 154 mm[Hg] Amy Solorzano LASER PRINT OPERATOR-C Work Phone: 4(345)600-995234 [place] [address] 11-27-2024 13:47-0400 Body height 167.64 cm Amy Solorzano LASER PRINT OPERATOR-C Work Phone: 0(921)858-131568 [place] [address] 11-27-2024 13:47-0400 Body weight 110.7 kg Amy Solorzano LASER PRINT OPERATOR-C Work Phone: 9(175)998-093868 [place] [address] 11-25-2024 14:54-0400 Body mass index (BMI) [Ratio] 39.4 kg/m2 Amy Solorzano LASER PRINT OPERATOR-C Work Phone: 9(307)684-860568 [place] [address] 11-25-2024 14:00-0400 Diastolic blood pressure 91 mm[Hg] Amy Solorzano LASER PRINT OPERATOR-C Work Phone: 8(740)289-374968 [place] [address] 11-25-2024 14:00-0400 Heart rate 91 /min Amypalma Solorzano LASER PRINT OPERATOR-C Work Phone: 5(352)781-507468 [place] [address] 11-25-2024 14:00-0400 Respiratory rate 18 /min Amy Solorzano LASER PRINT OPERATOR-C Work Phone: 9(146)988-993568 [place] [address] 11-25-2024 14:00-0400 SaO2% (BldA) [Mass fraction] 95 % Amy Solorzano LASER PRINT OPERATOR-C Work Phone: 7(452)923-049968 [place] [address] 11-25-2024 14:00-0400 Systolic blood pressure 129 mm[Hg] Amy Solorzano LASER PRINT OPERATOR-C Work Phone: 9(041)387-008568 [place] [address] 11-25-2024 11:00-0400 Body temperature 97.6 [degF] mAy Solorzano LASER PRINT OPERATOR-C Work Phone: 8(140)663-767868 [place] [address] 11-25-2024 08:48-0400 Body height 167.64 cm Amy Solorzano LASER PRINT OPERATOR-C Work Phone: 0(423)928-081968 [place] [address] 11-25-2024 08:48-0400 Body mass index (BMI) [Ratio] 40.9 kg/m2 Amy Solorzano LASER PRINT OPERATOR-C Work Phone: 2(192)336-325668 [place] [address] 11-25-2024 08:48-0400 Body weight 115.03 kg Amy Solorzano LASER PRINT OPERATOR-C Work Phone: [facility] 07-03-2024 12:26-0500 Body mass index (BMI) [Ratio] 40.02 kg/m2 Krislyn Aberegg PA Work Phone: [facility] 07-03-2024 12:26-0500 Body temperature 97 [degF] Krislyn Aberegg PA Work Phone: [facility] 07-03-2024 12:26-0500 Body weight 115.9 kg Krislyn Aberegg PA Work Phone: [facility] 07-03-2024 12:26-0500 Diastolic blood pressure 90 mm[Hg] Krislyn Aberegg PA Work Phone: [facility] 07-03-2024 12:26-0500 Heart rate 104 /min Krislyn Aberegg PA Work Phone: [facility] 07-03-2024 12:26-0500 Respiratory rate 16 /min Krislyn Aberegg PA Work Phone: [facility] 07-03-2024 12:26-0500 SaO2% (BldA) [Mass fraction] 100 % Krislyn Aberegg PA Work Phone: [facility] 07-03-2024 12:26-0500 Systolic blood pressure 122 mm[Hg] Krislyn Aberegg PA Work Phone: [facility] 06-26-2024 10:36-0500 Body mass index (BMI) [Ratio] 39.95 kg/m2 Frantz Clutter PA-C Work Phone: [facility] 06-26-2024 10:36-0500 Body temperature 97.39 [degF] Frantz Clutter PA-C Work Phone: [facility] 06-26-2024 10:36-0500 Body weight 115.7 kg Frantz Clutter PA-C Work Phone: [facility] 06-26-2024 10:36-0500 Diastolic blood pressure 78 mm[Hg] Frantz Clutter PA-C Work Phone: [facility] 06-26-2024 10:36-0500 Heart rate 117 /min Frantz Clutter PA-C Work Phone: [facility] 06-26-2024 10:36-0500 Respiratory rate 18 /min Frantz Clutter PA-C Work Phone: [facility] 06-26-2024 10:36-0500 SaO2% (BldA) [Mass fraction] 97 % Frantz Clutter PA-C Work Phone: [facility] 06-26-2024 10:36-0500 Systolic blood pressure 122 mm[Hg] Frantz Clutter PA-C Work Phone: [facility] 07-23-2023 11:30-0500 Body temperature 96.9 [degF] No Primary Care Physician [facility] 07-23-2023 11:30-0500 Diastolic blood pressure 82 mm[Hg] No Primary Care Physician [facility] 07-23-2023 11:30-0500 Heart rate 80 /min No Primary Care Physician [facility] 07-23-2023 11:30-0500 Respiratory rate 16 /min No Primary Care Physician [facility] 07-23-2023 11:30-0500 SaO2% (BldA) [Mass fraction] 99 % No Primary Care Physician [facility] 07-23-2023 11:30-0500 Systolic blood pressure 117 mm[Hg] No Primary Care Physician [facility] 07-23-2023 11:05-0500 Inhaled oxygen flow rate 4 L/min No Primary Care Physician [facility] 07-23-2023 08:34-0500 Body height 167.64 cm No Primary Care Physician [facility] 07-23-2023 08:34-0500 Body mass index (BMI) [Ratio] 32.5 kg/m2 No Primary Care Physician [facility] 07-23-2023 08:34-0500 Body weight 91.62 kg No Primary Care Physician [facility] 07-12-2023 10:13-0500 Body mass index (BMI) [Ratio] 32.1 kg/m2 No Primary Care Physician [facility] 07-12-2023 10:13-0500 Body temperature 98.2 [degF] No Primary Care Physician [facility] 07-12-2023 10:13-0500 Body weight 90.4 kg No Primary Care Physician [facility] 07-12-2023 10:13-0500 Diastolic blood pressure 90 mm[Hg] No Primary Care Physician [facility] 07-12-2023 10:13-0500 Heart rate 98 /min No Primary Care Physician [facility] 07-12-2023 10:13-0500 Respiratory rate 14 /min No Primary Care Physician [facility] 07-12-2023 10:13-0500 SaO2% (BldA) [Mass fraction] 100 % No Primary Care Physician [facility] 07-12-2023 10:13-0500 Systolic blood pressure 124 mm[Hg] No Primary Care Physician [facility] 07-02-2023 09:17-0500 Diastolic blood pressure 94 mm[Hg] No Primary Care Physician [facility] 07-02-2023 09:17-0500 Systolic blood pressure 142 mm[Hg] No Primary Care Physician [facility] 07-02-2023 09:14-0500 Body height 167.64 cm No Primary Care Physician [facility] 07-02-2023 09:14-0500 Body temperature 96.4 [degF] No Primary Care Physician [facility] 07-02-2023 09:14-0500 Heart rate 100 /min No Primary Care Physician [facility] 07-02-2023 09:14-0500 Respiratory rate 16 /min No Primary Care Physician [facility] 07-02-2023 09:14-0500 SaO2% (BldA) [Mass fraction] 100 % No Primary Care Physician [facility] 07-01-2023 10:07-0500 Body temperature 97 [degF] Andres Galaviz APRN.CNP Work Phone: [facility] 07-01-2023 10:07-0500 Body weight 93.44 kg Andres Galaviz APRN.CNP Work Phone: [facility] 07-01-2023 10:07-0500 Diastolic blood pressure 82 mm[Hg] Andres Galaviz APRN.STRIP WINDER Work Phone: [facility] 07-01-2023 10:07-0500 Heart rate 91 /min Andres Pendlebury CONTROL SUPERVISOR.[employer] WINDER Work Phone: [facility] 07-01-2023 10:07-0500 Respiratory rate 18 /min Andres Pendlebury CONTROL SUPERVISOR.STRIP WINDER Work Phone: [facility] 07-01-2023 10:07-0500 SaO2% (BldA) [Mass fraction] 100 % Andres Pendlebury CONTROL SUPERVISOR.STRIP WINDER Work Phone: [facility] 07-01-2023 10:07-0500 Systolic blood pressure 117 mm[Hg] Andres Pendlebury CONTROL SUPERVISOR.STRIP WINDER Work Phone: [facility] 06-30-2023 13:41-0500 Heart rate 72 /min No Primary Care Physician [facility] 06-30-2023 13:41-0500 Respiratory rate 16 /min No Primary Care Physician [facility] 06-30-2023 13:41-0500 SaO2% (BldA) [Mass fraction] 98 % No Primary Care Physician [facility] 06-30-2023 09:24-0500 Body mass index (BMI) [Ratio] 34 kg/m2 No Primary Care Physician [facility] 06-30-2023 09:24-0500 Body weight 95.7 kg No Primary Care Physician [facility] 06-30-2023 08:22-0500 Body temperature 98 [degF] No Primary Care Physician [facility] 06-30-2023 08:22-0500 Diastolic blood pressure 110 mm[Hg] No Primary Care Physician [facility] 06-30-2023 08:22-0500 Systolic blood pressure 170 mm[Hg] No Primary Care Physician [facility] 06-28-2023 09:17-0500 Body height 167.64 cm No Primary Care Physician [facility] 06-28-2023 09:17-0500 Body mass index (BMI) [Ratio] 33.6 kg/m2 No Primary Care Physician [facility] 06-28-2023 09:17-0500 Body temperature 98.2 [degF] No Primary Care Physician [facility] 06-28-2023 09:17-0500 Body weight 94.5 kg No Primary Care Physician [facility] 06-28-2023 09:17-0500 Diastolic blood pressure 105 mm[Hg] No Primary Care Physician [facility] 06-28-2023 09:17-0500 Heart rate 82 /min No Primary Care Physician [facility] 06-28-2023 09:17-0500 Respiratory rate 14 /min No Primary Care Physician [facility] 06-28-2023 09:17-0500 SaO2% (BldA) [Mass fraction] 99 % No Primary Care Physician [facility] 06-28-2023 09:17-0500 Systolic blood pressure 154 mm[Hg] No Primary Care Physician [facility] 06-27-2023 05:50-0500 Body height 167.64 cm No Primary Care Physician [facility] 06-27-2023 05:50-0500 Body mass index (BMI) [Ratio] 34 kg/m2 No Primary Care Physician [facility] 06-27-2023 05:50-0500 Body temperature 98.6 [degF] No Primary Care Physician [facility] 06-27-2023 05:50-0500 Body weight 95.7 kg No Primary Care Physician [facility] 06-27-2023 05:50-0500 Diastolic blood pressure 98 mm[Hg] No Primary Care Physician [facility] 06-27-2023 05:50-0500 Heart rate 85 /min No Primary Care Physician [facility] 06-27-2023 05:50-0500 Respiratory rate 16 /min No Primary Care Physician [facility] 06-27-2023 05:50-0500 SaO2% (BldA) [Mass fraction] 99 % No Primary Care Physician [facility] 06-27-2023 05:50-0500 Systolic blood pressure 163 mm[Hg] No Primary Care Physician [facility] 06-26-2023 17:04-0500 Heart rate 74 /min No Primary Care Physician [facility] 06-26-2023 17:04-0500 Respiratory rate 18 /min No Primary Care Physician [facility] 06-26-2023 17:04-0500 SaO2% (BldA) [Mass fraction] 97 % No Primary Care Physician [facility] 06-26-2023 11:30-0500 Body height 167.64 cm No Primary Care Physician [facility] 06-26-2023 11:30-0500 Body mass index (BMI) [Ratio] 34.1 kg/m2 No Primary Care Physician [facility] 06-26-2023 11:30-0500 Body temperature 97 [degF] No Primary Care Physician [facility] 06-26-2023 11:30-0500 Body weight 95.98 kg No Primary Care Physician [facility] 06-26-2023 11:30-0500 Diastolic blood pressure 120 mm[Hg] No Primary Care Physician [facility] 06-26-2023 11:30-0500 Systolic blood pressure 135 mm[Hg] No Primary Care Physician [facility] 06-25-2023 12:33-0500 Diastolic blood pressure 69 mm[Hg] No Primary Care Physician [facility] 06-25-2023 12:33-0500 Heart rate 82 /min No Primary Care Physician [facility] 06-25-2023 12:33-0500 Respiratory rate 16 /min No Primary Care Physician [facility] 06-25-2023 12:33-0500 SaO2% (BldA) [Mass fraction] 100 % No Primary Care Physician [facility] 06-25-2023 12:33-0500 Systolic blood pressure 124 mm[Hg] No Primary Care Physician [facility] 06-25-2023 09:27-0500 Body height 168 cm No Primary Care Physician [facility] 06-25-2023 09:27-0500 Body mass index (BMI) [Ratio] 32.1 kg/m2 No Primary Care Physician [facility] 06-25-2023 09:27-0500 Body temperature 96.5 [degF] No Primary Care Physician [facility] 06-25-2023 09:27-0500 Body weight 90.71 kg No Primary Care Physician [facility] 05-09-2023 14:02-0400 Body temperature 98.4 [degF] No Primary Care Physician [facility] 05-09-2023 14:02-0400 Diastolic blood pressure 102 mm[Hg] No Primary Care Physician [facility] 05-09-2023 14:02-0400 Heart rate 74 /min No Primary Care Physician [facility] 05-09-2023 14:02-0400 Respiratory rate 18 /min No Primary Care Physician [facility] 05-09-2023 14:02-0400 SaO2% (BldA) [Mass fraction] 100 % No Primary Care Physician [facility] 05-09-2023 14:02-0400 Systolic blood pressure 177 mm[Hg] No Primary Care Physician [facility] 05-09-2023 13:32-0400 Body temperature 98.4 [degF] [facility] Work Phone: 6(778)759-353968 [place] [address] 05-09-2023 13:32-0400 Diastolic blood pressure 121 mm[Hg] [facility] Work Phone: 5(554)493-724768 [place] [address] 05-09-2023 13:32-0400 Heart rate 74 /min [facility] Work Phone: 2(711)417-620268 [place] [address] 05-09-2023 13:32-0400 Respiratory rate 18 /min [facility] Work Phone: 0(821)573-229768 [place] [address] 05-09-2023 13:32-0400 SaO2% (BldA) [Mass fraction] 100 % [facility] Work Phone: 2(003)964-329168 [place] [address] 05-09-2023 13:32-0400 Systolic blood pressure 177 mm[Hg] [facility] Work Phone: 5(523)200-302268 [place] [address] 05-07-2023 11:35-0400 Body height 167.64 cm [facility] Work Phone: 9(898)875-595468 [place] [address] 05-07-2023 11:35-0400 Body mass index (BMI) [Ratio] 33.5 kg/m2 [facility] Work Phone: 7(392)244-539568 [place] [address] 05-07-2023 11:35-0400 Body weight 94.2 kg [facility] Work Phone: 4(629)512-131868 [place] [address] 05-04-2023 15:23-0400 Body height 167.64 cm [facility] Work Phone: 7(768)026-818168 [place] [address] 05-04-2023 15:23-0400 Body mass index (BMI) [Ratio] 33.5 kg/m2 [facility] Work Phone: [facility] 05-04-2023 15:23-0400 Body temperature 97.4 [degF] [facility] Work Phone: 8(888)858-767368 [place] [address] 05-04-2023 15:23-0400 Body weight 94.2 kg [facility] Work Phone: 5(862)303-516568 [place] [address] 05-04-2023 15:23-0400 Diastolic blood pressure 69 mm[Hg] [facility] Work Phone: 7(293)217-074468 [place] [address] 05-04-2023 15:23-0400 Heart rate 84 /min [facility] Work Phone: 2(151)460-637068 [place] [address] 05-04-2023 15:23-0400 Inhaled oxygen flow rate 96 L/min [facility] Work Phone: 0(023)296-748168 [place] [address] 05-04-2023 15:23-0400 Respiratory rate 16 /min [facility] Work Phone: 6(334)146-484968 [place] [address] 05-04-2023 15:23-0400 Systolic blood pressure 134 mm[Hg] [facility] Work Phone: 6(448)282-206268 [place] [address] 05-04-2023 14:51-0400 SaO2% (BldA) [Mass fraction] 97 % [facility] Work Phone: 8(391)898-259868 [place] [address] 04-15-2023 13:43-0400 Diastolic blood pressure 58 mm[Hg] [facility] Work Phone: 9(529)331-830268 [place] [address] 04-15-2023 13:43-0400 Heart rate 72 /min [facility] Work Phone: 9(495)403-441368 [place] [address] 04-15-2023 13:43-0400 Respiratory rate 16 /min [facility] Work Phone: 0(846)736-562068 [place] [address] 04-15-2023 13:43-0400 SaO2% (BldA) [Mass fraction] 99 % [facility] Work Phone: 7(218)938-296568 [place] [address] 04-15-2023 13:43-0400 Systolic blood pressure 122 mm[Hg] [facility] Work Phone: 3(141)285-969968 [place] [address] 04-15-2023 11:17-0400 Body mass index (BMI) [Ratio] 29.3 kg/m2 [facility] Work Phone: 5(888)617-980968 [place] [address] 04-15-2023 11:17-0400 Body temperature 97 [degF] [facility] Work Phone: 4(088)081-517068 [place] [address] 04-15-2023 11:17-0400 Body weight 82.4 kg [facility] Work Phone: 1(468)811-794268 [place] [address] 04-14-2023 11:51-0400 Body mass index (BMI) [Ratio] 32.3 kg/m2 [facility] Work Phone: 3(119)158-741768 [place] [address] 04-14-2023 11:51-0400 Body temperature 97.2 [degF] [facility] Work Phone: 4(032)607-977368 [place] [address] 04-14-2023 11:51-0400 Body weight 90.71 kg [facility] Work Phone: 8(348)511-377568 [place] [address] 04-14-2023 11:51-0400 Diastolic blood pressure 92 mm[Hg] [facility] Work Phone: 5(695)784-567568 [place] [address] 04-14-2023 11:51-0400 Heart rate 102 /min [facility] Work Phone: 0(070)258-267068 [place] [address] 04-14-2023 11:51-0400 Respiratory rate 24 /min [facility] Work Phone: 3(520)874-253868 [place] [address] 04-14-2023 11:51-0400 SaO2% (BldA) [Mass fraction] 100 % [facility] Work Phone: 5(819)284-545968 [place] [address] 04-14-2023 11:51-0400 Systolic blood pressure 131 mm[Hg] [facility] Work Phone: 4(619)129-831168 [place] [address] 04-13-2023 10:36-0400 Diastolic blood pressure 78 mm[Hg] [facility] Work Phone: 8(735)224-947068 [place] [address] 04-13-2023 10:36-0400 Heart rate 64 /min [facility] Work Phone: 9(400)503-622968 [place] [address] 04-13-2023 10:36-0400 Respiratory rate 14 /min [facility] Work Phone: 4(842)925-877768 [place] [address] 04-13-2023 10:36-0400 SaO2% (BldA) [Mass fraction] 98 % [facility] Work Phone: 6(359)762-924068 [place] [address] 04-13-2023 10:36-0400 Systolic blood pressure 108 mm[Hg] [facility] Work Phone: 3(695)202-429268 [place] [address] 04-13-2023 08:59-0400 Body mass index (BMI) [Ratio] 32.3 kg/m2 [facility] Work Phone: 7(228)448-122868 [place] [address] 04-13-2023 08:59-0400 Body temperature 95.9 [degF] [facility] Work Phone: 7(442)009-703968 [place] [address] 04-13-2023 08:59-0400 Body weight 90.71 kg [facility] Work Phone: 1(829)657-167668 [place] [address] 03-06-2023 08:15-0400 Body height 167.64 cm [facility] Work Phone: 8(942)970-824768 [place] [address] 03-06-2023 08:15-0400 Body mass index (BMI) [Ratio] 32.5 kg/m2 [facility] Work Phone: 3(902)980-521368 [place] [address] 03-06-2023 08:15-0400 Body temperature 97 [degF] [facility] Work Phone: 4(955)292-550468 [place] [address] 03-06-2023 08:15-0400 Body weight 91.3 kg [facility] Work Phone: 3(968)184-678668 [place] [address] 03-06-2023 08:15-0400 Diastolic blood pressure 113 mm[Hg] [facility] Work Phone: 5(547)272-236968 [place] [address] 03-06-2023 08:15-0400 Heart rate 100 /min [facility] Work Phone: 1(130)563-563268 [place] [address] 03-06-2023 08:15-0400 Respiratory rate 14 /min [facility] Work Phone: 4(429)905-163568 [place] [address] 03-06-2023 08:15-0400 SaO2% (BldA) [Mass fraction] 100 % [facility] Work Phone: [facility] 03-06-2023 08:15-0400 Systolic blood pressure 153 mm[Hg] [facility] Work Phone: [facility] 03-01-2023 10:40-0400 Body height 170.2 cm Dewayne Doran MD Work Phone: [facility] 03-01-2023 10:40-0400 Body temperature 98.2 [degF] Dewayne Doran MD Work Phone: [facility] 03-01-2023 10:40-0400 Body weight 90.1 kg Dewayne Doran MD Work Phone: [facility] 03-01-2023 10:40-0400 Diastolic blood pressure 87 mm[Hg] Dewayne Doran MD Work Phone: [facility] 03-01-2023 10:40-0400 Heart rate 109 /min Dewayne Doran MD Work Phone: [facility] 03-01-2023 10:40-0400 SaO2% (BldA) [Mass fraction] 97 % Dewayne Doran MD Work Phone: [facility] 03-01-2023 10:40-0400 Systolic blood pressure 119 mm[Hg] Dewayne Doran MD Work Phone: [facility] 02-26-2023 03:54-0400 Diastolic blood pressure 63 mm[Hg] [facility] Work Phone: [facility] 02-26-2023 03:54-0400 Heart rate 68 /min [facility] Work Phone: [facility] 02-26-2023 03:54-0400 Respiratory rate 15 /min [facility] Work Phone: [facility] 02-26-2023 03:54-0400 SaO2% (BldA) [Mass fraction] 97 % [facility] Work Phone: [facility] 02-26-2023 03:54-0400 Systolic blood pressure 107 mm[Hg] [facility] Work Phone: 0(506)947-272468 [place] [address] 02-25-2023 23:59-0400 Body height 167.64 cm [facility] Work Phone: 3(079)712-069968 [place] [address] 02-25-2023 23:59-0400 Body mass index (BMI) [Ratio] 31.8 kg/m2 [facility] Work Phone: 0(319)402-306668 [place] [address] 02-25-2023 23:59-0400 Body temperature 98 [degF] [facility] Work Phone: 3(511)982-402468 [place] [address] 02-25-2023 23:59-0400 Body weight 89.44 kg [facility] Work Phone: 1(194)939-735868 [place] [address] 02-24-2023 12:55-0400 Diastolic blood pressure 93 mm[Hg] [facility] Work Phone: 8(926)096-180768 [place] [address] 02-24-2023 12:55-0400 Heart rate 85 /min [facility] Work Phone: 6(214)023-393868 [place] [address] 02-24-2023 12:55-0400 Respiratory rate 18 /min [facility] Work Phone: 1(799)389-538368 [place] [address] 02-24-2023 12:55-0400 SaO2% (BldA) [Mass fraction] 96 % [facility] Work Phone: 3(165)469-392968 [place] [address] 02-24-2023 12:55-0400 Systolic blood pressure 124 mm[Hg] [facility] Work Phone: 1(985)687-707168 [place] [address] 02-24-2023 11:32-0400 Body mass index (BMI) [Ratio] 32.4 kg/m2 [facility] Work Phone: 5(581)364-939068 [place] [address] 02-24-2023 11:32-0400 Body temperature 97.8 [degF] [facility] Work Phone: 8(122)653-858468 [place] [address] 02-24-2023 11:32-0400 Body weight 91.22 kg [facility] Work Phone: 0(804)078-874168 [place] [address] 02-23-2023 09:59-0400 Body temperature 97.11 [degF] Pilar Magdaleno APRN.STRIP WINDER Work Phone: [facility] 02-23-2023 09:59-0400 Body weight 91.17 kg Pilar Magdaleno APRN.[employer]IP WINDER Work Phone: [facility] 02-23-2023 09:59-0400 Diastolic blood pressure 74 mm[Hg] Pilar Magdaleno APRN.[employer]IP W[employer]ER Work Phone: [facility] 02-23-2023 09:59-0400 Heart rate 88 /min Pilar Magdaleno APRN.[employer]IP W[employer]ER Work Phone: [facility] 02-23-2023 09:59-0400 Respiratory rate 16 /min Pilar Magdaleno APRN.[employer]IP W[employer]ER Work Phone: [facility] 02-23-2023 09:59-0400 Systolic blood pressure 118 mm[Hg] Pilar Magdaleno APRN.[employer]IP WINDER Work Phone: [facility] 02-11-2023 15:17-0400 Body temperature 97.88 [degF] HELENA SILVERMAN CONTROL SUPERVISOR-STRIP WINDER [facility] 02-11-2023 15:17-0400 Diastolic Blood Pressure Non-Invasive 86 1 HELENA SILVERMAN APRN-STRIP WINDER [facility] 02-11-2023 15:17-0400 Heart rate 67 /min HELENA SILVERMAN APRN-STRIP W[employer]ER [facility] 02-11-2023 15:17-0400 Reason For Taking VItal Signs HELENA SILVERMAN APRN-STRIP W[employer]ER [facility] 02-11-2023 15:17-0400 Systolic Blood Pressure Non-Invasive 137 1 HELENA SILVERMAN APRN-STRIP W[employer]ER [facility] 02-11-2023 11:58-0400 Body temperature 97.7 [degF] HELENA FOITH CONTROL SUPERVISOR-[employer]IP W[employer]ER [facility] 02-11-2023 11:58-0400 Diastolic Blood Pressure Non-Invasive 94 1 HELENA HERRERA CONTROL SUPERVISOR-[employer] W[employer]ER [facility] 02-11-2023 11:58-0400 Heart rate 68 /min HELENA HERRERA CONTROL SUPERVISOR-[employer]IP W[employer]ER [facility] 02-11-2023 11:58-0400 Reason For Taking VItal Signs HELENA HERRERA CONTROL SUPERVISOR-STRIP WINDER [facility] 02-11-2023 11:58-0400 Respiratory rate 18 /min HELENA HERRERA CONTROL SUPERVISOR-STRIP WINDER [facility] 02-11-2023 11:58-0400 Systolic Blood Pressure Non-Invasive 138 1 HELENA HERRERA CONTROL SUPERVISOR-STRIP W[employer]ER [facility] 02-11-2023 07:52-0400 Body temperature 98.06 [degF] HELENA SILVERMAN CONTROL SUPERVISOR-[employer]IP W[employer]ER [facility] 02-11-2023 07:52-0400 Diastolic Blood Pressure Non-Invasive 82 1 HELENA HERRERA CONTROL SUPERVISOR-[employer]IP WINDER [facility] 02-11-2023 07:52-0400 Heart rate 75 /min HELENA SILVEMRAN CONTROL SUPERVISOR-[employer]IP W[employer]ER [facility] 02-11-2023 07:52-0400 Reason For Taking VItal Signs HELENA SILVERMAN CONTROL SUPERVISOR-[employer]IP W[employer]ER [facility] 02-11-2023 07:52-0400 Respiratory rate 18 /min HELENA SILVERMAN CONTROL SUPERVISOR-[employer]IP W[employer]ER [facility] 08-03-2023 07:52-0400 Systolic Blood Pressure Non-Invasive 127 1 HELENA SILVERMAN APRN-STRIP W[employer]ER [facility] 02-11-2023 05:25-0400 Respiratory rate 18 /min HELENA SILVERMAN CONTROL SUPERVISOR-[employer]IP W[employer] [facility] 02-11-2023 01:49-0400 Body height 169.9 cm HELENA SILVERMAN CONTROL SUPERVISOR-[employer]IP W[employer] [facility] 02-11-2023 01:49-0400 Body weight 94.4 kg HELENA SILVERMAN CONTROL SUPERVISOR-[employer]IP W[employer]ER [facility] 02-11-2023 01:49-0400 Body weight 32.7 kg/m2 HELENA SILVERMAN CONTROL SUPERVISOR-[employer] W[employer] [facility] 02-10-2023 23:34-0400 Blood Pressure Cuff Size EHLENA SILVERMAN CONTROL SUPERVISOR-[employer]IP W[employer]ER [facility] 02-10-2023 23:34-0400 Blood Pressure Location HELENA SILVERMAN CONTROL SUPERVISOR-[employer]IP W[employer] [facility] 02-10-2023 23:34-0400 Blood Pressure Method HELENA SILVERMAN CONTROL SUPERVISOR-[employer] W[employer] [facility] 02-10-2023 23:34-0400 Body height 167.6 cm HELENA SILVERMAN CONTROL SUPERVISOR-[employer] W[employer] [facility] 02-10-2023 23:34-0400 Body temperature 98.24 [degF] HELENA SILVERMAN CONTROL SUPERVISOR-[employer]IP W[employer] [facility] 02-10-2023 23:34-0400 Body weight 97.7 kg HELENA SILVERMAN CONTROL SUPERVISOR-[employer]IP W[employer] [facility] 02-10-2023 23:34-0400 Heart rate 90 /min HELENA SILVERMAN CONTROL SUPERVISOR-[employer]IP W[employer] [facility] 02-08-2023 15:46-0400 Heart rate 97 /min [facility] Work Phone: 9(207)279-728502 [address] 02-08-2023 15:46-0400 Respiratory rate 21 /min [facility] Work Phone: 4(836)717-232668 [place] [address] 02-08-2023 15:46-0400 SaO2% (BldA) [Mass fraction] 96 % [facility] Work Phone: 5(450)296-283968 [place] [address] 02-08-2023 11:06-0400 Body height 167.64 cm [facility] Work Phone: 7(754)473-277468 [place] [address] 02-08-2023 11:06-0400 Body mass index (BMI) [Ratio] 34 kg/m2 [facility] Work Phone: 6(725)872-920468 [place] [address] 02-08-2023 11:06-0400 Body temperature 96 [degF] [facility] Work Phone: 8(156)893-586368 [place] [address] 02-08-2023 11:06-0400 Body weight 95.52 kg [facility] Work Phone: 3(328)908-127668 [place] [address] 02-08-2023 11:06-0400 Diastolic blood pressure 90 mm[Hg] [facility] Work Phone: 0(337)367-163668 [place] [address] 02-08-2023 11:06-0400 Systolic blood pressure 149 mm[Hg] [facility] Work Phone: 7(720)737-705568 [place] [address] 01-25-2023 11:35-0400 Body height 167.64 cm [facility] Work Phone: 0(840)047-967768 [place] [address] 01-25-2023 11:35-0400 Body mass index (BMI) [Ratio] 35.2 kg/m2 [facility] Work Phone: 9(222)901-942668 [place] [address] 01-25-2023 11:35-0400 Body temperature 96 [degF] [facility] Work Phone: 8(009)110-780268 [place] [address] 01-25-2023 11:35-0400 Body weight 98.8 kg [facility] Work Phone: [facility] 01-25-2023 11:35-0400 Diastolic blood pressure 87 mm[Hg] [facility] Work Phone: [facility] 01-25-2023 11:35-0400 Heart rate 86 /min [facility] Work Phone: 3(260)226-650534 [place] [address] 01-25-2023 11:35-0400 Respiratory rate 14 /min [facility] Work Phone: 7(364)206-075434 [place] [address] 01-25-2023 11:35-0400 SaO2% (BldA) [Mass fraction] 100 % [facility] Work Phone: [facility] 01-25-2023 11:35-0400 Systolic blood pressure 123 mm[Hg] [facility] Work Phone: 0(100)576-882434 [place] [address] 01-24-2023 12:38-0400 Diastolic blood pressure 74 mm[Hg] Abdirizak Ramirez MD Work Phone: [facility] 01-24-2023 12:38-0400 Heart rate 70 /min Abdirizak Ramirez MD Work Phone: [facility] 01-24-2023 12:38-0400 SaO2% (BldA) [Mass fraction] 98 % Abdirizak Ramirez MD Work Phone: [facility] 01-24-2023 12:38-0400 Systolic blood pressure 129 mm[Hg] Abdirizak Ramirez MD Work Phone: [facility] 01-24-2023 12:09-0400 Respiratory rate 15 /min Abdirizak Ramirez MD Work Phone: [facility] 01-24-2023 10:28-0400 Body height 167.6 cm Abdirizak Ramirez MD Work Phone: [facility] 01-24-2023 10:28-0400 Body mass index (BMI) [Ratio] 37.12 kg/m2 Abdirizak Ramirez MD Work Phone: [facility] 01-24-2023 10:28-0400 Body temperature 97.3 [degF] Abdirizak Ramirez MD Work Phone: [facility] 01-24-2023 10:28-0400 Body weight 104.33 kg Abdirizak Ramirez MD Work Phone: [facility] 01-15-2023 15:08-0400 Body temperature 97.9 [degF] [facility] Work Phone: 9(522)214-185168 [place] [address] 01-15-2023 15:08-0400 Diastolic blood pressure 102 mm[Hg] [facility] Work Phone: 4(051)988-821768 [place] [address] 01-15-2023 15:08-0400 Heart rate 73 /min [facility] Work Phone: 1(802)545-905868 [place] [address] 01-15-2023 15:08-0400 Respiratory rate 16 /min [facility] Work Phone: 4(859)347-814068 [place] [address] 01-15-2023 15:08-0400 SaO2% (BldA) [Mass fraction] 97 % [facility] Work Phone: 8(948)232-359768 [place] [address] 01-15-2023 15:08-0400 Systolic blood pressure 168 mm[Hg] [facility] Work Phone: 6(966)924-146068 [place] [address] 01-15-2023 12:58-0400 Body height 167.64 cm [facility] Work Phone: 6(766)077-754068 [place] [address] 01-15-2023 12:58-0400 Body weight 104 kg [facility] Work Phone: 8(968)597-899568 [place] [address] 01-14-2023 16:21-0400 Body mass index (BMI) [Ratio] 37 kg/m2 [facility] Work Phone: 8(053)075-848168 [place] [address] 01-13-2023 10:20-0400 Respiratory rate 16 /min [facility] Work Phone: 1(434)991-336168 [place] [address] 01-13-2023 06:21-0400 Body mass index (BMI) [Ratio] 37.6 kg/m2 [facility] Work Phone: 2(450)371-928134 [place] [address] 01-13-2023 06:21-0400 Body temperature 97 [degF] [facility] Work Phone: 2(049)399-302334 [place] [address] 01-13-2023 06:21-0400 Body weight 105.9 kg [facility] Work Phone: 2(019)147-584834 [place] [address] 01-13-2023 06:21-0400 Diastolic blood pressure 106 mm[Hg] [facility] Work Phone: 5(299)571-906834 [place] [address] 01-13-2023 06:21-0400 Heart rate 99 /min [facility] Work Phone: 0(136)949-727668 [place] [address] 01-13-2023 06:21-0400 SaO2% (BldA) [Mass fraction] 99 % [facility] Work Phone: 3(920)603-093734 [place] [address] 01-13-2023 06:21-0400 Systolic blood pressure 169 mm[Hg] [facility] Work Phone: 1(584)970-291234 [place] [address] 01-12-2023 13:20-0400 Diastolic blood pressure 101 mm[Hg] [facility] 01-12-2023 13:20-0400 Heart rate 70 /min [facility] 01-12-2023 13:20-0400 Respiratory rate 14 /min [facility] 01-12-2023 13:20-0400 SaO2% (BldA) [Mass fraction] 98 % [facility] 01-12-2023 13:20-0400 Systolic blood pressure 143 mm[Hg] [facility] 01-12-2023 10:45-0400 Body height 167.[address] [facility] 01-12-2023 10:45-0400 Body mass index (BMI) [Ratio] 37.6 kg/m2 [facility] 01-12-2023 10:45-0400 Body temperature 95.2 [degF] [facility] 01-12-2023 10:45-0400 Body weight 105.[address] [facility] 01-12-2023 02:13-0400 Diastolic blood pressure 87 mm[Hg] [facility] 01-12-2023 02:13-0400 Heart rate 84 /min [facility] 01-12-2023 02:13-0400 Respiratory rate 18 /min [facility] 01-12-2023 02:13-0400 SaO2% (BldA) [Mass fraction] 99 % [facility] 01-12-2023 02:13-0400 Systolic blood pressure 141 mm[Hg] [facility] 01-11-2023 22:58-0400 Body height 167.[address] [facility] 01-11-2023 22:58-0400 Body mass index (BMI) [Ratio] 33 kg/m2 [facility] 01-11-2023 22:58-0400 Body temperature 96.8 [degF] [facility] 01-11-2023 22:58-0400 Body weight 92.[address] [facility] 01-10-2023 17:27-0400 Body temperature 98.78 [degF] ESSIE LAWLERT [employer] [facility] 01-10-2023 17:27-0400 Diastolic Blood Pressure Non-Invasive 80 1 ESSIE LAWLERT DO [facility] 01-10-2023 17:27-0400 Heart rate 78 /min [employer] [facility] 01-10-2023 17:27-0400 Respiratory rate 16 /min ESSIE LAWLERT DO [facility] 01-10-2023 17:27-0400 Systolic Blood Pressure Non-Invasive 148 1 ESSIE LAWLERT DO [facility] 01-10-2023 16:16-0400 Body temperature 98.78 [degF] ESSIE LAWLERT DO [facility] 01-10-2023 15:43-0400 Diastolic Blood Pressure Non-Invasive 89 1 ESSIE LAWLERT DO [facility] 01-10-2023 15:43-0400 Heart rate 77 /min ESSIE LAWLERT DO [facility] 01-10-2023 15:43-0400 Respiratory rate 16 /min ESSIE FROMMELT DO [facility] 01-10-2023 15:43-0400 Systolic Blood Pressure Non-Invasive 144 1 ESSIE [email or web address] DO [facility] 01-10-2023 15:09-0400 Heart rate 74 /min ESSIE LAWLERT DO [facility] 01-10-2023 14:32-0400 Respiratory rate 12 /min ESSIE [email or web address] DO [facility] 01-10-2023 13:47-0400 Body temperature 98.78 [degF] ESSIE LAWLERT DO [facility] 01-10-2023 13:47-0400 Diastolic Blood Pressure Non-Invasive 92 1 ESSIE LAWLERT DO [facility] 01-10-2023 13:47-0400 Systolic Blood Pressure Non-Invasive 158 1 ESSIE [email or web address] [facility] 01-09-2023 15:21-0400 Diastolic blood pressure 70 mm[Hg] [facility] 01-09-2023 15:21-0400 Heart rate 84 /min [facility] 01-09-2023 15:21-0400 Respiratory rate 16 /min [facility] 01-09-2023 15:21-0400 SaO2% (BldA) [Mass fraction] 97 % [facility] 01-09-2023 15:21-0400 Systolic blood pressure 139 mm[Hg] [facility] 01-09-2023 11:53-0400 Body height 167.[address] [facility] 01-09-2023 11:53-0400 Body mass index (BMI) [Ratio] 41.1 kg/m2 [facility] 01-09-2023 11:53-0400 Body temperature 98.2 [degF] [facility] 01-09-2023 11:53-0400 Body weight 115.[address] [facility] 01-07-2023 14:18-0400 Respiratory rate 14 /min [facility] 01-07-2023 12:01-0400 Diastolic blood pressure 99 mm[Hg] [facility] 01-07-2023 12:01-0400 Systolic blood pressure 154 mm[Hg] [facility] 01-07-2023 08:38-0400 Body height 167.[address] [facility] 01-07-2023 08:38-0400 Body mass index (BMI) [Ratio] 34.5 kg/m2 [facility] 01-07-2023 08:38-0400 Body temperature 98.7 [degF] [facility] 01-07-2023 08:38-0400 Body weight 97.[address] [facility] 01-07-2023 08:38-0400 Heart rate 82 /min [facility] 01-07-2023 08:38-0400 SaO2% (BldA) [Mass fraction] 99 % [facility] 11-19-2022 09:26-0400 Body temperature 98.7 [degF] [facility] 11-19-2022 09:26-0400 Diastolic blood pressure 81 mm[Hg] [facility] 11-19-2022 09:26-0400 Heart rate 101 /min [facility] 11-19-2022 09:26-0400 Respiratory rate 14 /min [facility] 11-19-2022 09:26-0400 SaO2% (BldA) [Mass fraction] 99 % [facility] 11-19-2022 09:26-0400 Systolic blood pressure 131 mm[Hg] [facility] 11-19-2022 09:24-0400 Body mass index (BMI) [Ratio] 39.3 kg/m2 [facility] 11-19-2022 09:24-0400 Body weight 110.[address] [facility] 11-17-2022 08:43-0400 Body temperature 97.5 [degF] [facility] [employer] Work Phone: [facility] 11-17-2022 08:43-0400 Body weight 110.22 kg [facility] [employer] Work Phone: [facility] 11-17-2022 08:43-0400 Diastolic blood pressure 72 mm[Hg] [facility] [employer] Work Phone: [facility] 11-17-2022 08:43-0400 Heart rate 108 /min [facility] [employer] Work Phone: [facility] 11-17-2022 08:43-0400 Respiratory rate 16 /min [facility] [employer] Work Phone: [facility] 11-17-2022 08:43-0400 SaO2% (BldA) [Mass fraction] 97 % [facility] [employer] Work Phone: [facility] 11-17-2022 08:43-0400 Systolic blood pressure 120 mm[Hg] [facility] [employer] Work Phone: [facility] 10-08-2022 08:44-0400 Body temperature 97 [degF] Shamika Athy PA-C Work Phone: [facility] 10-08-2022 08:44-0400 Body weight 109.14 kg Shamika Athy PA-C Work Phone: [facility] 10-08-2022 08:44-0400 Diastolic blood pressure 82 mm[Hg] Shamika Athy PA-C Work Phone: [facility] 10-08-2022 08:44-0400 Heart rate 94 /min Shamika Athy PA-C Work Phone: [facility] 10-08-2022 08:44-0400 Respiratory rate 16 /min Shamika Athy PA-C Work Phone: [facility] 10-08-2022 08:44-0400 SaO2% (BldA) [Mass fraction] 100 % Shamika Goins PA-C Work Phone: [facility] 10-08-2022 08:44-0400 Systolic blood pressure 112 mm[Hg] Shamika Goins PA-C Work Phone: [facility] 08-15-2022 13:46-0500 Body temperature 98.6 [degF] Dr. Sophy Gibbons Work Phone: [facility] 08-15-2022 13:46-0500 Diastolic blood pressure 95 mm[Hg] Dr. Sophy Gibbons Work Phone: 5(500)660-391634 [place] [address] 08-15-2022 13:46-0500 Heart rate 87 /min Dr. Sophy Gibbons Work Phone: 2(635)594-099134 [place] [address] 08-15-2022 13:46-0500 Respiratory rate 16 /min Dr. Sophy Gibbons Work Phone: 1(425)620-454734 [place] [address] 08-15-2022 13:46-0500 SaO2% (BldA) [Mass fraction] 99 % Dr. Sophy Gibbons Work Phone: [facility] 08-15-2022 13:46-0500 Systolic blood pressure 130 mm[Hg] Dr. Sophy Gibbons Work Phone: 7(382)751-391234 [place] [address] 08-15-2022 05:43-0500 Body weight 107.[address] Sophy Gibbons Work Phone: 3(106)628-412234 [place] [address] 08-13-2022 10:58-0500 Body height 167.[address] Sophy Gibbons Work Phone: 7(472)222-688234 [place] [address] 08-12-2022 22:34-0500 Body mass index (BMI) [Ratio] 37.9 kg/m2 Dr. Sophy Gibbons Work Phone: [facility] 08-12-2022 22:03-0500 Body temperature 98 [degF] Dr. Sophy Gibbons Work Phone: 8(869)021-751634 [place] [address] 08-12-2022 22:03-0500 Diastolic blood pressure 74 mm[Hg] Dr. Sophy Gibbons Work Phone: 8(456)126-822068 [place] [address] 08-12-2022 22:03-0500 Heart rate 82 /min Dr. Sophy Gibbons Work Phone: 8(729)743-217068 [place] [address] 08-12-2022 22:03-0500 Respiratory rate 15 /min Dr. Sophy Gibbons Work Phone: 1(654)958-463968 [place] [address] 08-12-2022 22:03-0500 SaO2% (BldA) [Mass fraction] 99 % Dr. Sophy Gibbons Work Phone: 6(115)534-401368 [place] [address] 08-12-2022 22:03-0500 Systolic blood pressure 118 mm[Hg] Dr. Sophy Gibbons Work Phone: 5(449)597-268968 [place] [address] 08-12-2022 15:27-0500 Body height 167.[address] Sophy Gibbons Work Phone: 6(898)282-942268 [place] [address] 08-12-2022 15:27-0500 Body mass index (BMI) [Ratio] 37.9 kg/m2 Dr. Sophy Gibbons Work Phone: 0(564)164-144068 [place] [address] 08-12-2022 15:27-0500 Body weight 106.[address] Sophy Gibbons Work Phone: 5(049)487-287868 [place] [address] 06-29-2022 08:39-0500 Body temperature 97.6 [degF] No Primary Care Physician [facility] 06-29-2022 08:39-0500 Diastolic blood pressure 90 mm[Hg] No Primary Care Physician [facility] 06-29-2022 08:39-0500 Heart rate 81 /min No Primary Care Physician [facility] 06-29-2022 08:39-0500 Respiratory rate 16 /min No Primary Care Physician [facility] 06-29-2022 08:39-0500 SaO2% (BldA) [Mass fraction] 99 % No Primary Care Physician [facility] 06-29-2022 08:39-0500 Systolic blood pressure 130 mm[Hg] No Primary Care Physician [facility] 06-26-2022 06:09-0500 Body height 167.64 cm No Primary Care Physician [facility] Work Phone: 06-26-2022 06:09-0500 Body mass index (BMI) [Ratio] 38.1 kg/m2 No Primary Care Physician [facility] 06-26-2022 06:09-0500 Body weight 107.1 kg No Primary Care Physician [facility] 06-25-2022 03:57-0500 Body temperature 98.1 [degF] No Primary Care Physician [facility] Work Phone: 06-25-2022 03:57-0500 Diastolic blood pressure 99 mm[Hg] No Primary Care Physician [facility] Work Phone: 06-25-2022 03:57-0500 Heart rate 96 /min No Primary Care Physician [facility] Work Phone: 06-25-2022 03:57-0500 Respiratory rate 18 /min No Primary Care Physician [facility] Work Phone: 06-25-2022 03:57-0500 SaO2% (BldA) [Mass fraction] 97 % No Primary Care Physician [facility] Work Phone: 06-25-2022 03:57-0500 Systolic blood pressure 134 mm[Hg] No Primary Care Physician [facility] Work Phone: 06-24-2022 16:48-0500 Body height 167.64 cm No Primary Care Physician [facility] Work Phone: 06-24-2022 16:48-0500 Body mass index (BMI) [Ratio] 38 kg/m2 No Primary Care Physician [facility] Work Phone: 06-24-2022 16:48-0500 Body weight 107.04 kg No Primary Care Physician [facility] Work Phone: 06-24-2022 15:30-0500 Body temperature 98.9 [degF] No Primary Care Physician [facility] Work Phone: 06-24-2022 15:30-0500 Diastolic blood pressure 99 mm[Hg] No Primary Care Physician [facility] Work Phone: 06-24-2022 15:30-0500 Heart rate 97 /min No Primary Care Physician [facility] Work Phone: 06-24-2022 15:30-0500 Respiratory rate 15 /min No Primary Care Physician [facility] Work Phone: 06-24-2022 15:30-0500 SaO2% (BldA) [Mass fraction] 100 % No Primary Care Physician [facility] Work Phone: 06-24-2022 15:30-0500 Systolic blood pressure 137 mm[Hg] No Primary Care Physician [facility] Work Phone: 06-24-2022 11:12-0500 Body height 167.64 cm No Primary Care Physician [facility] Work Phone: 06-24-2022 11:12-0500 Body mass index (BMI) [Ratio] 35.5 kg/m2 No Primary Care Physician [facility] Work Phone: 06-24-2022 11:12-0500 Body weight 99.79 kg No Primary Care Physician [facility] Work Phone: 04-09-2022 16:15-0400 Body temperature 98.2 [degF] No Primary Care Physician [facility] Work Phone: 04-09-2022 16:15-0400 Diastolic blood pressure 87 mm[Hg] No Primary Care Physician [facility] Work Phone: 04-09-2022 16:15-0400 Heart rate 89 /min No Primary Care Physician [facility] Work Phone: 04-09-2022 16:15-0400 Respiratory rate 18 /min No Primary Care Physician [facility] Work Phone: 04-09-2022 16:15-0400 SaO2% (BldA) [Mass fraction] 99 % No Primary Care Physician [facility] Work Phone: 04-09-2022 16:15-0400 Systolic blood pressure 136 mm[Hg] No Primary Care Physician [facility] Work Phone: 04-08-2022 11:30-0400 Body height 167.64 cm No Primary Care Physician [facility] Work Phone: 04-08-2022 11:30-0400 Body weight 96.6 kg No Primary Care Physician [facility] Work Phone: 04-06-2022 17:48-0400 Body mass index (BMI) [Ratio] 34.3 kg/m2 No Primary Care Physician [facility] Work Phone: 04-06-2022 15:39-0400 Body temperature 100.1 [degF] No Primary Care Physician [facility] Work Phone: 04-06-2022 15:39-0400 Diastolic blood pressure 79 mm[Hg] No Primary Care Physician [facility] Work Phone: 04-06-2022 15:39-0400 Heart rate 114 /min No Primary Care Physician [facility] Work Phone: 04-06-2022 15:39-0400 Respiratory rate 20 /min No Primary Care Physician [facility] Work Phone: 04-06-2022 15:39-0400 SaO2% (BldA) [Mass fraction] 98 % No Primary Care Physician [facility] Work Phone: 04-06-2022 15:39-0400 Systolic blood pressure 136 mm[Hg] No Primary Care Physician [facility] Work Phone: 04-06-2022 12:45-0400 Body height 167.64 cm No Primary Care Physician [facility] Work Phone: 04-06-2022 12:45-0400 Body mass index (BMI) [Ratio] 34.7 kg/m2 No Primary Care Physician [facility] Work Phone: 04-06-2022 12:45-0400 Body weight 97.5 kg No Primary Care Physician [facility] Work Phone: 04-05-2022 16:06-0400 Diastolic blood pressure 95 mm[Hg] No Primary Care Physician [facility] Work Phone: 04-05-2022 16:06-0400 Heart rate 103 /min No Primary Care Physician [facility] Work Phone: 04-05-2022 16:06-0400 Respiratory rate 16 /min No Primary Care Physician [facility] Work Phone: 04-05-2022 16:06-0400 SaO2% (BldA) [Mass fraction] 98 % No Primary Care Physician [facility] Work Phone: 04-05-2022 16:06-0400 Systolic blood pressure 127 mm[Hg] No Primary Care Physician [facility] Work Phone: 04-05-2022 11:53-0400 Body temperature 98 [degF] No Primary Care Physician [facility] Work Phone: 04-05-2022 11:50-0400 Body height 167.64 cm No Primary Care Physician [facility] Work Phone: 04-05-2022 11:50-0400 Body mass index (BMI) [Ratio] 34.4 kg/m2 No Primary Care Physician [facility] Work Phone: 04-05-2022 11:50-0400 Body weight 96.8 kg No Primary Care Physician [facility] Work Phone: 03-23-2022 12:28-0400 Body temperature 97 [degF] Sid Bravo MD Work Phone: [facility] 03-23-2022 12:28-0400 Body weight 97.07 kg Sid Bravo MD Work Phone: [facility] 03-23-2022 12:28-0400 Diastolic blood pressure 98 mm[Hg] Sid Bravo MD Work Phone: [facility] 03-23-2022 12:28-0400 Heart rate 105 /min Sid Bravo MD Work Phone: [facility] 03-23-2022 12:28-0400 Respiratory rate 20 /min Sid Bravo MD Work Phone: [facility] 03-23-2022 12:28-0400 SaO2% (BldA) [Mass fraction] 93 % Sid Bravo MD Work Phone: [facility] 03-23-2022 12:28-0400 Systolic blood pressure 130 mm[Hg] Sid Bravo MD Work Phone: [facility] 02-02-2022 09:33-0400 Body temperature 97.2 [degF] Alyssa Yeni [employer] Work Phone: [facility] 02-02-2022 09:33-0400 Body weight 92.53 kg Alyssa Yeni [employer] Work Phone: [facility] 02-02-2022 09:33-0400 Diastolic blood pressure 72 mm[Hg] Alyssa Yeni [employer] SU[employer] Work Phone: [facility] 02-02-2022 09:33-0400 Heart rate 74 /min Alyssa Yeni [employer] SU[employer] Work Phone: [facility] 02-02-2022 09:33-0400 Respiratory rate 16 /min Alyssa Yein [employer] Work Phone: [facility] 02-02-2022 09:33-0400 SaO2% (BldA) [Mass fraction] 99 % Alyssa Yein [employer] Work Phone: [facility] 02-02-2022 09:33-0400 Systolic blood pressure 120 mm[Hg] Alyssa Yeni [employer] Work Phone: [facility] 02-01-2022 17:18-0400 Diastolic blood pressure 100 mm[Hg] No Primary Care Physician [facility] Work Phone: 02-01-2022 17:18-0400 Heart rate 66 /min No Primary Care Physician [facility] Work Phone: 02-01-2022 17:18-0400 Respiratory rate 18 /min No Primary Care Physician [facility] Work Phone: 02-01-2022 17:18-0400 SaO2% (BldA) [Mass fraction] 97 % No Primary Care Physician [facility] Work Phone: 02-01-2022 17:18-0400 Systolic blood pressure 145 mm[Hg] No Primary Care Physician [facility] Work Phone: 02-01-2022 12:42-0400 Body height 167.64 cm No Primary Care Physician [facility] Work Phone: 02-01-2022 12:42-0400 Body mass index (BMI) [Ratio] 32.3 kg/m2 No Primary Care Physician [facility] Work Phone: 02-01-2022 12:42-0400 Body temperature 96.3 [degF] No Primary Care Physician [facility] Work Phone: 02-01-2022 12:42-0400 Body weight 90.71 kg No Primary Care Physician [facility] Work Phone: 01-26-2022 12:31-0400 Body height 167.[address] [facility] Work Phone: 01-26-2022 12:31-0400 Body mass index (BMI) [Ratio] 32.6 kg/m2 [facility] Work Phone: 01-26-2022 12:31-0400 Body temperature 98.4 [degF] [facility] Work Phone: 01-26-2022 12:31-0400 Body weight 91.[address] [facility] Work Phone: 01-26-2022 12:31-0400 Diastolic blood pressure 108 mm[Hg] [facility] Work Phone: 01-26-2022 12:31-0400 Heart rate 94 /min [facility] Work Phone: 01-26-2022 12:31-0400 Respiratory rate 22 /min [facility] Work Phone: 01-26-2022 12:31-0400 SaO2% (BldA) [Mass fraction] 99 % [facility] Work Phone: 01-26-2022 12:31-0400 Systolic blood pressure 154 mm[Hg] [facility] Work Phone: 01-23-2022 18:18-0400 Diastolic blood pressure 74 mm[Hg] [facility] Work Phone: 01-23-2022 18:18-0400 Respiratory rate 18 /min [facility] Work Phone: 01-23-2022 18:18-0400 Systolic blood pressure 122 mm[Hg] [facility] Work Phone: 01-23-2022 16:02-0400 Body height 167.[address] [facility] Work Phone: 01-23-2022 16:02-0400 Body mass index (BMI) [Ratio] 33.9 kg/m2 [facility] Work Phone: 01-23-2022 16:02-0400 Body temperature 97.6 [degF] [facility] Work Phone: 01-23-2022 16:02-0400 Body weight 95.[address] [facility] Work Phone: 01-23-2022 16:02-0400 Heart rate 99 /min [facility] [facility] Work Phone: 01-23-2022 16:02-0400 SaO2% (BldA) [Mass fraction] 100 % [facility] Work Phone: 01-22-2022 23:45-0400 Heart rate 91 /min [facility] Work Phone: 01-22-2022 23:45-0400 Respiratory rate 16 /min [facility] Work Phone: 01-22-2022 23:45-0400 SaO2% (BldA) [Mass fraction] 98 % [facility] Work Phone: 01-22-2022 21:26-0400 Body height 167.[address] [facility] Work Phone: 01-22-2022 21:26-0400 Body mass index (BMI) [Ratio] 33.9 kg/m2 [facility] Work Phone: 01-22-2022 21:26-0400 Body temperature 97.8 [degF] [facility] Work Phone: 01-22-2022 21:26-0400 Body weight 95.[address] [facility] Work Phone: 01-22-2022 21:26-0400 Diastolic blood pressure 97 mm[Hg] [facility] Work Phone: 01-22-2022 21:26-0400 Systolic blood pressure 140 mm[Hg] [facility] Work Phone: 01-16-2022 14:12-0400 Body height 167.[address] [facility] Work Phone: 01-16-2022 14:12-0400 Body mass index (BMI) [Ratio] 33.9 kg/m2 [facility] Work Phone: 01-16-2022 14:12-0400 Body temperature 96.7 [degF] [facility] Work Phone: 01-16-2022 14:12-0400 Body weight 95.[address] [facility] Work Phone: 01-16-2022 14:12-0400 Diastolic blood pressure 93 mm[Hg] [facility] Work Phone: 01-16-2022 14:12-0400 Heart rate 130 /min [facility] Work Phone: 01-16-2022 14:12-0400 Respiratory rate 18 /min [facility] Work Phone: 01-16-2022 14:12-0400 SaO2% (BldA) [Mass fraction] 98 % [facility] Work Phone: 01-16-2022 14:12-0400 Systolic blood pressure 126 mm[Hg] [facility] Work Phone: 11-16-2021 10:09-0400 Body temperature 98.3 [degF] [facility] Work Phone: 11-16-2021 10:09-0400 Diastolic blood pressure 82 mm[Hg] [facility] Work Phone: 11-16-2021 10:09-0400 Heart rate 98 /min [facility] Work Phone: 11-16-2021 10:09-0400 Systolic blood pressure 138 mm[Hg] [facility] Work Phone: 11-16-2021 08:39-0400 Body height 167.[address] [facility] Work Phone: 11-16-2021 08:39-0400 Body mass index (BMI) [Ratio] 34.9 kg/m2 [facility] Work Phone: 11-16-2021 08:39-0400 Body weight 98.[address] [facility] Work Phone: 11-16-2021 08:39-0400 Respiratory rate 16 /min [facility] Work Phone: 11-16-2021 08:39-0400 SaO2% (BldA) [Mass fraction] 96 % [facility] Work Phone: 10-29-2021 12:09-0400 Diastolic blood pressure 69 mm[Hg] [facility] Work Phone: 10-29-2021 12:09-0400 Heart rate 71 /min [facility] Work Phone: 10-29-2021 12:09-0400 Respiratory rate 15 /min [facility] Work Phone: 10-29-2021 12:09-0400 SaO2% (BldA) [Mass fraction] 98 % [facility] Work Phone: 10-29-2021 12:09-0400 Systolic blood pressure 124 mm[Hg] [facility] Work Phone: 10-29-2021 08:59-0400 Body height 167.[address] [facility] Work Phone: 10-29-2021 08:59-0400 Body mass index (BMI) [Ratio] 34.6 kg/m2 [facility] Work Phone: 10-29-2021 08:59-0400 Body temperature 96.9 [degF] [facility] Work Phone: 10-29-2021 08:59-0400 Body weight 97.[address] [facility] Work Phone: 10-24-2021 08:30-0400 Body temperature 97.3 [degF] [facility] Work Phone: 10-24-2021 08:30-0400 Diastolic blood pressure 92 mm[Hg] [facility] Work Phone: 10-24-2021 08:30-0400 Heart rate 98 /min [facility] Work Phone: 10-24-2021 08:30-0400 Respiratory rate 16 /min [facility] Work Phone: 10-24-2021 08:30-0400 SaO2% (BldA) [Mass fraction] 100 % [facility] Work Phone: 10-24-2021 08:30-0400 Systolic blood pressure 148 mm[Hg] [facility] Work Phone: 10-24-2021 08:18-0400 Body height 167.[address] [facility] Work Phone: 10-24-2021 08:18-0400 Body mass index (BMI) [Ratio] 33.7 kg/m2 [facility] Work Phone: 10-24-2021 08:18-0400 Body weight [address] [facility] Work Phone: 08-10-2021 23:58-0500 Heart rate 107 /min [facility] Work Phone: 08-10-2021 23:58-0500 Respiratory rate 18 /min [facility] Work Phone: 08-10-2021 23:58-0500 SaO2% (BldA) [Mass fraction] 100 % [facility] Work Phone: 08-10-2021 22:57-0500 Diastolic blood pressure 88 mm[Hg] [facility] Work Phone: 08-10-2021 22:57-0500 Systolic blood pressure 125 mm[Hg] [facility] Work Phone: 08-10-2021 21:32-0500 Body mass index (BMI) [Ratio] 35.5 kg/m2 [facility] Work Phone: 08-10-2021 21:32-0500 Body temperature 97.6 [degF] [facility] Work Phone: 08-10-2021 21:32-0500 Body weight 99.[address] [facility] Work Phone: Encounters Encounter Date Encounter Type Care Provider Facility Start: 02-15-2025 ambulatory Amy Frankl in [facility] Facility:[facility] Start: 01-11-2025 ambulatory Amy Frankl in [facility] Facility:[facility] Start: 01-01-2025 Dr. Frantz Coulter DO -[facility] Work Phone: Start: 12-31-2024 ambulatory Dewayne Barrett ty:[facility] Start: 12-31-2024 End: 01-01-2025 Evaluation and management of inpatient Amy Solorzano LASER PRINT OPERATOR-C Work Phone: [facility] Work Phone: Start: 12-31-2024 End: 01-01-2025 Dr. Dewayne Grant DO -Intensive Care Unit Work Phone: Start: 12-31-2024 Dr. David Hernandez and -[facility] Work Phone: Start: 12-30-2024 Non-patient / Non-visit Dr. Dwaine Bain MD -[facility] Work Phone: Start: 12-30-2024 ambulatory Amy Radford in [facility] Facility:[facility] Start: 12-30-2024 End: 12-31-2024 Evaluation and management of inpatient Dr. David Bain MD -Intensive Care Unit Work Phone: Start: 12-30-2024 End: 12-31-2024 Dr. David Bain MD -Intensive Care Unit Work Phone: Start: 12-25-2024 End: 12-25-2024 ambulatory Amy Solorzano LASER PRINT OPERATOR-C Work Phone: [facility] Work Phone: Start: 12-25-2024 End: 12-25-2024 Patient encounter procedure Nayana Peter PA -Ultrasound [facility] Work Phone: Start: 12-25-2024 End: 12-25-2024 Nayana Peter PA -Ultrasound [facility] Work Phone: Start: 12-25-2024 End: 12-25-2024 ambulatory Kalee Peter Facility:[facility] Start: 12-13-2024 End: 12-13-2024 ambulatory Amy Solorzano LASER PRINT OPERATOR-C Work Phone: [facility] Work Phone: Start: 12-13-2024 End: 12-13-2024 Patient encounter procedure Nayana Peter PA -Laboratory Work Phone: Start: 12-13-2024 End: 12-13-2024 Nayana GRADY -Laboratory Work Phone: Start: 12-13-2024 End: 12-13-2024 Patient encounter procedure Nayana GRADY -[facility] Work Phone: Start: 12-13-2024 End: 12-13-2024 Nayana GRADY -[facility] Work Phone: Start: 12-13-2024 End: 12-13-2024 ambulatory Amy Solorzano LASER PRINT OPERATOR-C Work Phone: [facility] Work Phone: Start: 12-13-2024 End: 12-13-2024 ambulatory [facility] Facility:[facility] Start: 11-28-2024 Non-patient / Non-[facility] Work Phone: Start: 11-28[facility]20[facility] Start: 11-28-2024 Non-patient / Non-visit Clare GRADY-C -[facility] Start: 11-28-2024 Clare jauregui PA-C -[facility] Start: 11-27-2024 Non-patient / Non-visit Clare Loo PA-C -[facility] Start: 11-27-2024 Clare jauregui PA-C -[facility] Start: 11-26-2024 Non-patient / Non-visit Dr. Clair Rao MD -[facility] Work Phone: Start: 11-26-2024 Dr. Brenda alcocer MD -[facility] Work Phone: Start: 11-26-2024 [facility]-patient / [facility] Start: 11-26-2024 [facility] Start: 11-25-2024 [facility] / [facility] Start: 11-25-2024 Dr. Annalise Welch MD -[facility] Start: 11-25-2024 ambulatory Brenda Rao Facility :[facility] Start: 11-25-2024 End: 11-28-2024 Evaluation and management of inpatient Dr. Brenda Rao MD -[facility] 3 Work Phone: Start: 11-25-2024 End: 11-28-2024 Dr. Gale Lr DO -[facility] Work Phone: Start: 10-26-2024 ambulatory Amy Radford in [facility] Facility:[facility] Start: 10-25-2024 End: 10-25-2024 ambulatory Amypalma Solorazno LASER PRINT OPERATOR-C Work Phone: [facility] Work Phone: Start: 10-25-2024 End: 10-25-[address] Abdirizak Frorest DPM -Cardiovascular Services Work Phone: Start: 10-25-2024 End: 10-25-2024 Dr. Abdirizak Forrest DPM -Cardiovascular Services Work Phone: Start: 10-25-2024 End: 10-25-2024 ambulatory Amykeiko Solorzano [facility] Facility:[facility] Start: 10-17-2024 End: 10-17-2024 ambulatory Amykeiko Solorzano LASER PRINT OPERATOR-C Work Phone: [facility] Work Phone: Start: 10-17-2024 End: 10-17-2024 Patient encounter procedure [facility] Amy Solorzano LASER PRINT OPERATOR-C -Laboratory, Sophy Gibbons Start: 10-17-2024 End: 10-17-2024 [facility] Amy Solorzano LASER PRINT OPERATOR-C -Laboratory Sophy Gibbons Start: 10-17-2024 End: 10-17-2024 ambulatory Amy Rashad [facility] Facility:[facility] Start: 07-03-2024 End: 07-03-2024 Patient encounter procedure Irais GRADY Work Phone: [facility] Comment on above: Acute cough (Primary Dx) Start: 07-03-2024 End: 07-03-2024 ambulatory [facility] Facility:[facility] Start: 07-03-2024 End: 07-03-2024 Subsequent hospital visit by physician Santiago [facility] Work Phone: Radiology Comment on above: Acute cough [R05.1] Start: 06-26-2024 End: 06-26-[address] [facility] Facility:[facility] Start: 06-26-2024 End: 06-26-2024 Office outpatient visit 25 minutes Frantz Arevalo PA-C Work Phone: [facility] Comment on above: Bronchopneumonia (Pr imary Dx); Mild intermittent asthma, uncomplicated Start: 04-25-2024 End: 04-25-[address] [facility] Facility:[facility] Start: 11-08-2023 End: 11-08-2023 ambulatory [facility] Work Phone: Start: 11-08-2023 End: 11-08-2023 Patient encounter procedure [facility] Work Phone: Start: 07-23-2023 End: 07-23-2023 Admission to same day surgery center [facility] Start: 07-23-2023 End: 07-23-2023 ambulatory No Primary Care Physician [facility] Work Phone: Start: 07-23-2023 End: 07-23-2023 No Primary Care Physician [facility] Start: 07-12-2023 End: 07-12-2023 No Primary Care Physician [facility]-Emergency Department Work Phone: Start: 07-02-2023 End: 07-02-2023 Emergency department patient visit No Primary Care Physician [facility] Work Phone: Start: 07-02-2023 End: 07-02-2023 No Primary Care Physician [facility]-Emergency Department Work Phone: Start: 07-01-2023 End: 07-01-2023 Office outpatient visit 15 minutes Andres Galaviz APRN.CNP Work Phone: [facility] Comment on above: Pain of right eye (P rimary Dx) Start: 06-30-2023 End: 06-30-2023 No Primary Care Physician [facility]-Emergency Department Work Phone: Start: 06-28-2023 End: 06-28-2023 Emergency department patient visit No Primary Care Physician [facility] Work Phone: Start: 06-28-2023 End: 06-28-2023 No Primary Care Physician [facility]Emergency [facility] Work Phone: Start: 06-27-2023 End: 06-27-2023 Emergency department patient visit No Primary Care Physician [facility]Emergency Department Work Phone: Start: 06-27-2023 End: 06-27-2023 No Primary Care Physician [facility] Work Phone: Start: 06-26-2023 End: 06-26-2023 Emergency department patient visit No Primary Care Physician [facility] Work Phone: Start: 06-26-2023 End: 06-26-2023 No Primary Care Physician [facility]Emer[facility] Work Phone: Start: 06-25-2023 End: 06-25-2023 Emergency department patient visit No Primary Care Physician [facility]Emergency [facility] Work Phone: Start: 06-25-2023 End: 06-25-2023 No Primary Care Physician [facility]Emergency Department Work Phone: Start: 05-18-2023 End: 05-18-2023 ambulatory No Primary Care Physician [facility] Work Phone: Start: 05-18-2023 End: 05-18-2023 Patient encounter procedure No Primary Care Physician [facility]-Laboratory, Specimen Work Phone: Start: 05-18-2023 End: 05-18-2023 No Primary Care Physician [facility]-Laboratory, Specimen Work Phone: Start: 05-09-2023 Non-patient / Non-visit No Kristina cormier Care Physician [facility] Work Phone: Start: 05-09-2023 [facility] Work Phone: [facility] Work Phone: Start: 05-08-2023 Non-patient / Non-visit No Kristina cormier Care Physician [facility] Work Phone: Start: 05-08-2023 [facility] Work Phone: [facility] Work Phone: Start: 05-07-2023 Non-patient / Non-visit No Kristina cormier Care Physician [facility] Work Phone: Start: 05-07-2023 [facility] Work Phone: [facility] Work Phone: Start: 05-06-2023 Non-patient / Non-visit No Kristina cormier Care Physician [facility] Work Phone: Start: 05-06-2023 [facility] Work Phone: [facility] Work Phone: Start: 05-05-2023 Non-patient / Non-visit No Kristina cormier Care Physician [facility] Work Phone: Start: 05-05-2023 [facility] Work Phone: [facility] Work Phone: Start: 05-04-2023 End: 05-09-2023 Evaluation and management of inpatient [facility] Work Phone: [facility] Work Phone: Start: 05-04-2023 End: 05-09-2023 [facility] Work Phone: [facility]-Medical Surgical 3 Work Phone: Start: 05-04-2023 ambulatory [facility] Work Phone: [facility] Work Phone: Start: 05-04-2023 [facility] Work Phone: [facility] Work Phone: Start: 05-04-2023 Non-patient / Non-visit No Kristina casa Care Physician [facility] Work Phone: Start: 05-04-2023 [facility] Work Phone: [facility] Work Phone: Start: 04-15-2023 End: 04-15-2023 Emergency department patient visit No Primary Care Physician [facility]Emergency Department Work Phone: Start: 04-15-2023 End: 04-15-2023 [facility] Work Phone: [facility]-Emergency Department Work Phone: Start: 04-15-2023 End: 04-15-2023 Patient encounter procedure Abdirizak Peña APRN.CNP Work Phone: [facility] Comment on above: SOB (shortness of br eath) (Primary Dx); Abdominal pain, unspecified abdominal location Start: 04-14-2023 End: 04-14-2023 Emergency department patient visit No Primary Care Physician [facility]Emergency Department Work Phone: Start: 04-14-2023 End: 04-14-2023 [facility] Work Phone: [facility]Emergency Department Work Phone: Start: 04-13-2023 End: 04-13-2023 Emergency department patient visit No Primary Care Physician [facility] Work Phone: Start: 04-13-2023 End: 04-13-2023 [facility] Work Phone: [facility]-Emergency Department Work Phone: Start: 03-26-2023 ambulatory No Pcp CONTROL SUPERVISOR [facility] [place] Start: 03-12-2023 Orders Only Pilar farrar CONTROL SUPERVISOR.STRIP WINDER Work Phone: [facility] Comment on above: Chronic abdominal pa in (Primary Dx) Start: 03-10-2023 Telephone encounter Amy redding NP Work Phone: [facility] Comment on above: Follow Up (Post Disc harge F/U - 1st attempt made. No answer./) Start: 03-09-2023 Telephone encounter Pilar barrios CONTROL SUPERVISOR.STRIP WINDER Work Phone: [facility] Comment on above: Consult Start: 03-06-2023 End: 03-06-2023 Emergency department patient visit [facility] Work Phone: [facility] Work Phone: Start: 03-06-2023 End: 03-06-2023 [facility] Work Phone: [facility]-Emergency Department Work Phone: Start: 03-02-2023 ambulatory No Pcp CONTROL SUPER[facility]OR [facility] [place] Start: 03-02-2023 Telephone encounter Almita SIMONC Work Phone: [facility] Provider Adult Comment on above: Appointment Start: 03-01-2023 End: 03-04-2023 Evaluation and management of inpatient [facility] Facility:[facility] Start: 03-01-2023 End: 03-01-2023 Patient encounter procedure Dewayne Doran MD Work Phone: Gastroenterology Comment on above: Vomiting, unspecifie d vomiting type, unspecified whether nausea present (Primary Dx); Chronic nausea Start: 02-25-2023 End: 02-26-2023 Emergency department patient visit [facility] Work Phone: [facility] Work Phone: Start: 02-25-2023 End: 02-26-2023 [facility] Start: 02-24-2023 End: 02-24-2023 Emergency department patient visit [facility] Start: 02-24-2023 End: 02-24-2023 [facility] Start: 02-23-2023 End: 02-23-2023 Patient encounter procedure Pilar Magdaleno APRN.STRIP WINDER Work Phone: [facility] [place] Comment on above: Chronic nausea (Prim crystal Dx); Chronic abdominal pain Start: 02-17-2023 End: 02-18-2023 Emergency department patient visit DEWAYNE KIM [facility] Start: 02-11-2023 End: 02-11-2023 ambulatory GERALDINE RICARDO Facility:[facility] Start: 02-10-2023 End: 02-11-2023 Observation HELENA SILVERMAN CONTROL SUPERVISOR-STRIP WINDER [facility] Start: 02-08-2023 End: 02-08-2023 Emergency department patient visit [facility] Start: 02-08-2023 End: 02-08-2023 [facility] Start: 02-04-2023 End: 02-04-2023 Patient encounter procedure Irais GRADY Work Phone: [facility] Comment on above: Generalized abdomina l pain (Primary Dx) Start: 02-04-2023 End: 02-04-2023 Emergency department patient visit [facility] Start: 02-04-2023 End: 02-04-2023 [facility] Work Phone: [facility] Work Phone: Start: 01-25-2023 End: 01-25-2023 Emergency department patient visit [facility] Work Phone: [facility] Work Phone: Start: 01-25-2023 End: 01-25-2023 [facility] Work Phone: [facility] Work Phone: Start: 01-24-2023 End: 01-24-2023 Emergency department patient visit ABDIRIZAK RAMIREZ [facility] Start: 01-24-2023 End: 01-24-2023 Emergency department patient visit Abdirizak Ramirez MD Work Phone: [facility] Comment on above: Nausea and vomiting, unspecified vomiting type (Primary Dx); Syncope and collapse Start: 01-17-2023 End: 01-17-2023 Emergency department patient visit GERALDINE ROLAND [facility] Start: 01-15-2023 Non-patient / Non-visit [facility] Work Phone: [facility] Work Phone: Start: 01-15-2023 [facility] Work Phone: [facility] Work Phone: Start: 01-14-2023 End: 01-15-2023 Evaluation and management of inpatient [facility] Work Phone: [facility] 3 Work Phone: Start: 01-14-2023 End: 01-15-2023 observation encounter [facility] Work Phone: [facility] Work Phone: Start: 01-14-2023 End: 01-15-2023 [facility] Work Phone: [facility] Surgical 3 Work Phone: Start: 01-13-2023 End: 01-13-2023 Emergency department patient visit [facility] Work Phone: [facility] Work Phone: Start: 01-13-2023 End: 01-13-2023 [facility] Work Phone: [facility] Work Phone: Start: 01-12-2023 End: 01-12-2023 Emergency department patient visit [facility] Work Phone: Start: 01-12-2023 End: 01-12-2023 [facility] Work Phone: [facility] Work Phone: Start: 01-11-2023 End: 01-12-2023 Emergency department patient visit [facility] Work Phone: Start: 01-11-2023 End: 01-12-2023 [facility] Work Phone: [facility] Work Phone: Start: 01-10-2023 End: 01-10-2023 Emergency department patient visit ESSIE LAWLERTed KIM Facility:[facility] Start: 01-10-2023 End: 01-10-2023 Emergency department patient [facility] Start: 01-09-2023 End: 01-09-2023 Emergency department patient visit [facility] Work Phone: Start: 01-09-2023 End: 01-09-2023 [facility] Work Phone: [facility] Work Phone: Start: 01-07-2023 End: 01-07-2023 Emergency department patient visit [facility] Work Phone: Start: 01-07-2023 End: 01-07-2023 [facility] Work Phone: [facility] Work Phone: Start: 11-25-2022 End: 11-25-2022 ambulatory [facility] Work Phone: [facility] Work Phone: Start: 11-25-2022 End: 11-25-2022 Patient encounter procedure [facility] Work Phone: Start: 11-25-2022 End: 11-25-2022 [facility] Start: 11-19-2022 End: 11-19-2022 [facility] Start: 11-19-2022 End: 11-19-2022 [facility] Work Phone: [facility] Work Phone: Start: 11-17-2022 End: 11-17-2022 Office outpatient visit 25 minutes Andres Galavzi APRN.CNP Work Phone: [facility] Comment on above: Facial infection (Pr imary Dx) Start: 10-11-2022 Telephone encounter Irais GRADY Work Phone: [facility] Comment on above: Results Start: 10-08-2022 End: 10-08-2022 Patient encounter procedure Shamika Goins PA-C Work Phone: [facility] Comment on above: Toe infection (Prima ry Dx); Facial infection; History of MRSA infection Start: 08-14-2022 Non-patient / Non-visit Dr. Jessica Gibbons Work Phone: [facility] Start: 08-13-2022 Non-patient / Non-visit Dr. Jessica Gibbons Work Phone: [facility] Start: 08-12-2022 Non-patient / Non-visit Dr. Jessica Gibbons Work Phone: [facility] Start: 08-12-2022 End: 08-15-2022 Evaluation and management of inpatient Dr. Sophy Gibbons Work Phone: [facility] Start: 06-29-2022 Non-patient / Non-visit No Kristina casa Care Physician [facility] Start: 06-28-2022 Non-patient / Non-visit No Kristina cormier Care Physician [facility] Start: 06-27-2022 Non-patient / Non-visit No Kristina cormier Care Physician [facility] Start: 06-26-2022 Non-patient / Non-visit No Kristina cormier Care Physician [facility] Start: 06-25-2022 Non-patient / Non-visit No Kristina cormier Care Physician [facility] Start: 06-24-2022 End: 06-29-2022 Evaluation and management of inpatient No Primary Care Physician [facility] 3 Start: 06-23-2022 End: 06-23-2022 ambulatory No Primary Care Physician [facility] Work Phone: Start: 06-23-2022 End: 06-23-2022 Patient encounter procedure No Primary Care Physician [facility], Specimen Start: 05-07-2022 End: 05-07-2022 ambulatory No Primary Care Physician [facility] Work Phone: Start: 05-07-2022 End: 05-07-2022 Patient encounter procedure No Primary Care Physician [facility] Start: 04-20-2022 End: 04-20-2022 ambulatory No Primary Care Physician [facility] Work Phone: Start: 04-20-2022 End: 04-20-2022 Departed Referred No Primary Care Physician [facility] 100/200 Start: 04-20-2022 Registered Referred No Primary Care Physician [facility] 100/200 Start: 04-13-2022 End: 04-13-2022 ambulatory No Primary Care Physician [facility] Work Phone: Start: 04-13-2022 End: 04-13-2022 Departed Referred No Primary Care Physician [facility] 100/200 Start: 04-13-2022 Registered Referred No Primary Care Physician [facility] 100/200 Start: 04-10-2022 End: 04-10-2022 ambulatory No Primary Care Physician [facility] Work Phone: Start: 04-10-2022 End: 04-10-2022 Departed Referred No Primary Care Physician [facility] 100/200 Start: 04-09-2022 Non-patient / Non-visit No Kristina casa Care Physician [facility] Start: 04-08-2022 Non-patient / Non-visit No Kristina casa Care Physician [facility] Start: 04-07-2022 Non-patient / Non-visit No Kristina casa Care Physician [facility] Start: 04-06-2022 Non-patient / Non-visit No Kristina casa Care Physician [facility] Start: 04-06-2022 End: 04-09-2022 Evaluation and management of inpatient No Primary Care Physician [facility] 3 Start: 04-05-2022 End: 04-05-2022 Emergency department patient visit No Primary Care Physician [facility] Start: 03-23-2022 End: 03-23-2022 Subsequent hospital visit by physician Santiago [facility] Work Phone: Radiology Comment on above: Acute cough [R05.1] Start: 03-23-2022 End: 03-23-2022 Patient encounter procedure Sid Bravo MD Work Phone: [facility] Comment on above: Acute cough (Primary Dx); Mild intermittent asthmatic bronchitis without complication Start: 02-16-2022 End: 02-16-2022 Patient encounter procedure No Primary Care Physician [facility] Start: 02-02-2022 End: 02-02-2022 Patient encounter procedure Alyssa Jaime APRN.CNP Work Phone: [facility] Comment on above: Abnormal lung scan ( Primary Dx); Nausea and vomiting, unspecified vomiting type Start: 02-01-2022 End: 02-01-2022 Emergency department [facility] Start: 01-30-2022 End: 01-30-2022 Patient encounter procedure No Primary Care Physician [facility] Start: 01-30-2022 End: 01-30-2022 Patient encounter procedure No Primary Care Physician [facility] Start: 01-26-2022 End: 01-26-2022 [facility] Start: 01-23-2022 End: 01-23-2022 [facility] Start: 01-22-2022 End: 01-22-2022 [facility] Start: 01-16-2022 End: 01-16-2022 [facility] Start: 11-16-2021 End: 11-16-2021 Emergency department patient visit [facility] Start: 10-29-2021 End: 10-29-2021 [facility] Start: 10-24-2021 End: 10-24-2021 Emergency department patient visit [facility] Start: 08-10-2021 End: 08-11-2021 [facility] Start: 05-15-2021 End: 05-15-2021 Subsequent hospital visit by physician Xr [facility] Work Phone: Radiology Comment on above: Cough [R05.9] Procedures Date Procedure Procedure Detail Performing Clinician Start: 01-01-2025 Estimated creatinine clearance Amy Solorzano NP-C Work Phone: Start: 01-01-2025 Oxygen measurement Mirian Solorzano LASER PRINT OPERATOR-C Work Phone: Start: 01-01-2025 Venous oxygen satura tion measurement Amy Solorzano LASER PRINT OPERATOR-C Work Phone: Start: 12-31-2024 Estimated creatinine clearance Amy Solorzano NP-C Work Phone: Start: 12-31-2024 Venous oxygen satura tion measurement Amy Solorzano LASER PRINT OPERATOR-C Work Phone: Start: 12-31-2024 Blood count smear mc rscp w/mnl difrntl wbc count Amy TINAJEROC Work Phone: Start: 12-31-2024 Mean corpuscular hem oglobin concentration determination Amy Solorzano LASER PRINT OPERATOR-C Work Phone: Start: 12-31-2024 Nucleated red blood cell count procedure Amy TINAJEROC Work Phone: Start: 12-31-2024 Platelet mean volume determination Amy TINAJEROC Work Phone: Start: 12-31-2024 Urine microscopy: red cells Amy Solorzano NP-C Work Phone: Start: 12-31-2024 Urnls dip stick/tabl et reagent auto microscopy Amy Solorzano NP-C Work Phone: Start: 12-31-2024 Estimated creatinine clearance Amy TINAJEROC Work Phone: Start: 12-30-2024 Venous oxygen satura tion measurement Amy IBRAHIM Work Phone: Start: 12-30-2024 Benzodiazepine measu rement, urine Amy Solorzano NP-C Work Phone: Start: 12-30-2024 Cocaine measurement, urine Amy Solorzano LASER PRINT OPERATOR-C Work Phone: Start: 12-30-2024 Methadone measurement, urine Amy Solorzano LASER PRINT OPERATOR-C Work Phone: Start: 12-30-2024 Urine cannabinoid measurement Amy Solorzano LASER PRINT OPERATOR-C Work Phone: Start: 12-30-2024 Urine microscopy: red cells Amy Solorzano NP-C Work Phone: Start: 12-30-2024 Urine opiate measurement Amy Solorzano LASER PRINT OPERATOR-C Work Phone: Start: 12-30-2024 Urnls dip stick/tabl et reagent auto microscopy Amy Solorzano NP-C Work Phone: Start: 12-30-2024 Blood count smear mc rscp w/mnl difrntl wbc count Amy Solorzano LASER PRINT OPERATOR-C Work Phone: Start: 12-30-2024 Estimated creatinine clearance Amy TINAJEROC Work Phone: Start: 12-30-2024 Mean corpuscular hem oglobin concentration determination Amy Solorzano NP-C Work Phone: Start: 12-30-2024 Nucleated red blood cell count procedure Amy Solorzano NP-C Work Phone: Start: 12-30-2024 Osmolality measureme nt, serum mAy Solorzano NP-C Work Phone: Start: 12-30-2024 Platelet mean volume determination Amy Solorzano NP-C Work Phone: Start: 12-30-2024 Serum inorganic phos phate measurement Amy Solorzano LASER PRINT OPERATOR-C Work Phone: Start: 12-30-2024 Triacylglycerol lipa se measurement Amy Solorzano LASER PRINT OPERATOR-C Work Phone: Start: 12-25-2024 Ultrasonography of abdomen Amy TINAJEROC Work Phone: Start: 12-13-2024 Blood count smear mc rscp w/mnl difrntl wbc count Amy Solorzano NP-C Work Phone: Start: 12-13-2024 Mean corpuscular hem oglobin concentration determination Amy Solorzano NP-C Work Phone: Start: 12-13-2024 Nucleated red blood cell count procedure Amy Solorzano NP-C Work Phone: Start: 12-13-2024 Platelet mean volume determination Amy Solorzano NP-C Work Phone: Start: 11-28-2024 Blood count smear mc rscp w/mnl difrntl wbc count Amy Solorzano NP-C Work Phone: Start: 11-28-2024 Estimated creatinine clearance Amy Solorzano LASER PRINT OPERATOR-C Work Phone: Start: 11-28-2024 Mean corpuscular hem oglobin concentration determination Amy Solorzano LASER PRINT OPERATOR-C Work Phone: Start: 11-28-2024 Nucleated red blood cell count procedure Amy Solorzano LASER PRINT OPERATOR-C Work Phone: Start: 11-28-2024 Platelet mean volume determination Amy Solorzano LASER PRINT OPERATOR-C Work Phone: Start: 11-27-2024 Computed tomography of abdomen and pelvis with contrast Amy Solorzano LASER PRINT OPERATOR-C Work Phone: Start: 11-26-2024 Plain X-ray abdomen Glendy Solorzano LASER PRINT OPERATOR-C Work Phone: Start: 11-25-2024 Blood culture Amy kim LASER PRINT OPERATOR-C Work Phone: Start: 11-25-2024 Assay of lactate Manjinder Solorzano LASER PRINT OPERATOR-C Work Phone: Start: 11-25-2024 Computed tomography of abdomen and pelvis with intravenous contrast Amy Solorzano LASER PRINT OPERATOR-C Work Phone: Start: 11-25-2024 Urine microscopy: red cells Amy Solorzano LASER PRINT OPERATOR-C Work Phone: Start: 11-25-2024 Urnls dip stick/tabl et reagent auto microscopy Amy Solorzano LASER PRINT OPERATOR-C Work Phone: Start: 11-25-2024 Plain X-ray abdomen Glendy Solorzano LASER PRINT OPERATOR-C Work Phone: Start: 11-25-2024 Estimated creatinine clearance Amy Solorzano LASER PRINT OPERATOR-C Work Phone: Start: 10-17-2024 Blood count smear mc rscp w/mnl difrntl wbc count Amy Solorzano LASER PRINT OPERATOR-C Work Phone: Start: 10-17-2024 Mean corpuscular hem oglobin concentration determination Amy Solorzano LASER PRINT OPERATOR-C Work Phone: Start: 10-17-2024 Nucleated red blood cell count procedure Amy Solorzano LASER PRINT OPERATOR-C Work Phone: Start: 10-17-2024 Platelet mean volume determination Amy Solorzano LASER PRINT OPERATOR-C Work Phone: Start: 10-17-2024 Total cholesterol:HD L ratio measurement Amy Solorzano LASER PRINT OPERATOR-C Work Phone: Start: 10-17-2024 Vitamin D, 25-hydrox y measurement Amy Solorzano LASER PRINT OPERATOR-C Work Phone: Comment on above: Vitamin D [...] Care Physician Start: 05-18-2023 Mycology culture No [facility] Physician Start: 05-08-2023 Plain X-ray abdomen [facility] Work Phone: Start: 05-07-2023 Incision and [...] Work Phone: Start: 05-04-2023 Mycology culture No [facility] Physician Start: 05-04-2023 [facility] Work Phone: Start: 05-04-2023 X-ray of both feet [facility] Work Phone: Start: 03-06-2023 Computed tomography of abdomen and pelvis with contrast [facility] Work Phone: Start: 03-06-2023 X-ray of both feet [facility] Work Phone: Start: 02-26-2023 Computed tomography of abdomen and pelvis with intravenous contrast [facility] Work Phone: Start: 02-24-2023 Plain X-ray of toe [facility] Work Phone: Start: 02-17-2023 Urinalysis DEWAYNE Mendoza Comment on above: Result Comment: URIN ALYSIS Performed By: [id number] #### [facility],[address] [place] [address] Start: 02-08-2023 Computed tomography of abdomen and [...] Comment: URIN ALYSIS Performed By: [id number] #### [facility] [place] [address] Start: 01-14-2023 Urine culture [facility] Work Phone: Start: 01-14-2023 Computed tomography [...] ches t 2 views Andres Lopezjosé luis CONTROL SUPERVISOR.STRIP WINDER Work Phone: Acid fast bacilli culture Dr [...] Physician Investigation of tra nsfusion reaction Dr. Spohy Gibbons Work Phone: Microbial culture, routine N [...] of 2) Zoster Vaccines (1 of 2) [facility] Start: 01-01-2025 Patient discharge [facility] Start: 01-01-2025 [facility] Start: 12-31-2024 End: 01-01-2025 [facility] Start: 12-31-2024 Application of intermittent pneumatic compression device [facility] Start: 12-31-2024 End: 12-31-2024 Following clinical pathway protocol [facility] Start: 12-31-2024 Lab findings surveillance [facility] Start: 12-31-2024 Notification of physician [facility] Start: 12-31-2024 Patient education [facility] Start: 12-31-2024 Patient referral to dietitian [facility] Start: 12-31-2024 Vital signs measurements [facility] Start: 12-31-2024 Admission procedure [facility] Start: 12-31-2024 Thyroid stimulating hormone measurement [facility] Start: 12-31-2024 Hospital admission, emergency, from emergency room, medical nature [facility] Start: 12-31-2024 Urine test [facility] Start: 12-31-2024 Following clinical pathway protocol [facility] Start: 12-31-2024 Patient discharge [facility] Start: 12-30-2024 [facility] Start: 12-30-2024 Bacteria identified in Urine by Culture Urine Culture [facility] Start: 12-30-2024 Urine culture [facility] Start: 12-30-2024 Assessment of risk of venous thromboembolism [facility] Start: 12-30-2024 Continuous pulse oximetry [facility] Start: 12-30-2024 End: 12-30-2024 Following clinical pathway protocol [facility] Start: 12-30-2024 Incentive spirometry [facility] Start: 12-30-2024 Insertion of catheter into peripheral vein [facility] Start: 12-30-2024 Lab findings surveillance [facility] Start: 12-30-2024 Measuring intake and output [place] Start: 12-30-2024 Notification of physician [facility] Start: 12-30-2024 Oxygen therapy [facility] Start: 12-30-2024 Patient education [facility] Start: 12-30-2024 Providing care according to standard [facility] Start: 12-30-2024 Vital signs measurements [facility] Start: 12-30-2024 [facility] Start: 12-30-2024 Verification routine [facility] Start: 12-30-2024 Hospital admission, emergency, from emergency room, medical nature [facility] Start: 12-30-2024 Admission procedure [facility] Start: 12-30-2024 End: 12-31-2024 [facility] Start: 12-30-2024 Osmolality measurement, serum [facility] Start: 12-30-2024 Serum inorganic phosphate measurement [facility] Start: 12-30-2024 Patient referral to dietitian [facility] Start: 11-28-2024 Patient discharge [facility] Start: 11-28-2024 [facility] Start: 11-26-2024 End: 11-27-2024 [facility] Start: 11-26-2024 Inhalation therapy procedure [facility] Start: 11-25-2024 Following clinical pathway protocol [facility] Start: 11-25-2024 Assessment of risk of venous thromboembolism [facility] Start: 11-25-2024 Care regimes management [facility] Start: 11-25-2024 Insertion of catheter into peripheral vein [facility] Start: 11-25-2024 Notification of physician [facility] Start: 11-25-2024 Providing care according to standard [facility] Start: 11-25-2024 Provision of activity privileges [facility] Start: 11-25-2024 Referral to general surgeon [place] Start: 11-25-2024 Referral to occupational therapist [facility] Start: 11-25-2024 Referral to service [facility] Start: 11-25-2024 End: 11-25-2024 [facility] Start: 11-25-2024 Hospital admission, emergency, from emergency room, medical nature [facility] Start: 11-25-2024 Bacteria identified in Blood by Culture Blood Culture [facility] Start: 11-25-2024 Blood culture Blood Culture [facility] Start: 11-25-2024 Admission procedure [facility] Start: 11-25-2024 Verification routine [facility] Start: 11-25-2024 [facility] Start: 03-12-2024 Covid-19 Vaccine ( season) Covid-19 Vaccine ( season) [facility] Start: 03-12-2024 Influenza vaccination Influenza Vaccine (#1) [facility] Start: 02-24-2024 ANNUAL PCP TEAM CHRONIC DISEASE VISIT ANNUAL PCP TEAM CHRONIC DISEASE VISIT [facility] Start: 01-12-2024 [facility] Start: 07-23-2023 Amputation foot transmetarsal AMPUTATION THRU METATARSAL [facility] Start: 07-23-2023 Anes open proc bones lower leg/ankle/foot nos ANESTH LOWER LEG BONE SURG [facility] Start: 07-23-2023 Injection aa&/strd sciatic nerve NJX AA&/STRD SCIATIC NRV IMG [facility] Start: 07-23-2023 Musc myocutaneous/fasciocutaneous flap lxtr MUSCLE-SKIN GRAFT LEG [facility] Start: 07-23-2023 Smr prim src gram/giemsa stain bct fungi/cell SMEAR GRAM STAIN [facility] Start: 07-23-2023 [facility] Start: 07-23-2023 Patient discharge [facility] Start: 07-23-2023 X-ray of both feet [facility] Start: 07-23-2023 XR Foot GE 3 Views [facility] Start: 07-12-2023 [facility] Start: 06-28-2023 [facility] Start: 06-27-2023 [facility] Start: 06-27-2023 Blood chemistry [facility] Start: 06-26-2023 [facility] Start: 06-25-2023 [facility] Start: 05-21-2023 Hemoglobin A1c measurement HbA1C [facility] Start: 05-21-2023 Hemoglobin A1c/Hemoglobin.total in Blood HBA1C [facility] Start: 05-18-2023 Anaerobic microbial culture Anaerobic Culture [place] Start: 05-18-2023 [facility] Start: 05-09-2023 Patient discharge [facility] Start: 05-08-2023 Inhalation therapy procedure [facility] Start: 05-07-2023 [facility] Start: 05-04-2023 [facility] Start: 05-04-2023 Ambulation without limitation [facility] Start: 05-04-2023 Assessment of risk of venous thromboembolism [facility] Start: 05-04-2023 Care regimes management [facility] Start: 05-04-2023 Consultation for treatment [facility] Start: 05-04-2023 Insertion of catheter into peripheral vein [facility] Start: 05-04-2023 Notification of physician [facility] Start: 05-04-2023 Patient referral to dietitian [facility] Start: 05-04-2023 Providing care according to standard [facility] Start: 05-04-2023 [facility] Start: 05-04-2023 Following clinical pathway protocol [facility] Start: 05-04-2023 Incision and drainage of abscess [facility] Start: 05-04-2023 Admission procedure [facility] Start: 05-04-2023 Hospital admission, emergency, from emergency room, medical nature [facility] Start: 05-04-2023 End: 05-04-2023 Blood culture [facility] Start: 05-04-2023 End: 05-04-2023 [facility] Start: 05-04-2023 [facility] Start: 04-15-2023 [facility] Start: 03-12-2023 Covid-19 Vaccine () Covid-19 Vaccine () [facility] Start: 03-12-2023 Influenza vaccination [facility] Start: 01-25-2023 Blood chemistry [facility] Start: 01-25-2023 Computed tomography of abdomen and pelvis with intravenous contrast Abdomen/Pelvis W IV Cont ONLY [facility] Start: 01-25-2023 Electrocardiographic procedure [facility] Start: 01-25-2023 Lipase measurement [facility] Start: 01-25-2023 [facility] Start: 01-19-2023 [facility] Start: 01-18-2023 [facility] Start: 01-17-2023 [facility] Start: 01-16-2023 [facility] Start: 01-15-2023 Patient discharge [facility] Start: 01-14-2023 Referral to service [facility] Start: 01-14-2023 Assessment of risk of venous thromboembolism [facility] Start: 01-14-2023 Care regimes management [facility] Start: 01-14-2023 Insertion of catheter into peripheral vein [facility] Start: 01-14-2023 Measuring intake and output [place] Start: 01-14-2023 Patient referral to dietitian [facility] Start: 01-14-2023 Providing care according to standard [facility] Start: 01-14-2023 Provision of activity privileges [facility] Start: 01-14-2023 [facility] Start: 07-06-2023 Following clinical pathway protocol [facility] Start: 01-14-2023 Verification routine [facility] Start: 01-14-2023 Admission procedure [facility] Start: 01-12-2023 US Gallbladder [facility] Start: 01-12-2023 US Pelvis transvaginal [facility] Start: 10-08-2022 End: 12-08-2022 Bacteria identified in Wound by Culture ABSCESS AND WOUND CULTURE WITH GRAM STAIN Microbiology Routine Toe infection Expected: 10/08/2022, Expires: 12/08/2022 [facility] Work Phone: Comment on above: Expected: 10/08/2022, Expires: Start: 08-15-2022 Patient discharge [facility] Start: 08-14-2022 Provision of activity privileges [facility] Start: 08-13-2022 End: 08-13-2022 Blood culture [facility] Start: 08-13-2022 [facility] Start: 08-13-2022 Inhalation therapy procedure [facility] Start: 08-12-2022 Following clinical pathway protocol [facility] Start: 08-12-2022 Assessment of risk of venous thromboembolism [facility] Start: 08-12-2022 Care regimes management [facility] Start: 08-12-2022 Insertion of catheter into peripheral vein [facility] Start: 08-12-2022 Measuring intake and output [place] Start: 08-12-2022 Notification of physician [facility] Start: 08-12-2022 Providing care according to standard [facility] Start: 08-12-2022 Provision of activity privileges [facility] Start: 08-12-2022 [facility] Start: 08-12-2022 Admission procedure [facility] Start: 08-12-2022 [facility] Start: 08-12-2022 Patient referral to dietitian [facility] Start: 07-12-2022 DEPRESSION ASSESSMENT DEPRESSION ASSESSMENT [facility] Start: 06-30-2022 Blood chemistry [facility] Work Phone: Start: 06-29-2022 Patient discharge [facility] Start: 06-29-2022 Blood chemistry [facility] Work Phone: Start: 06-28-2022 Blood chemistry [facility] Work Phone: Start: 06-27-2022 Blood chemistry [facility] Work Phone: Start: 06-26-2022 Wound care [facility] Start: 06-26-2022 Elevation of affected extremity [facility] Start: 06-26-2022 [facility] Start: 06-26-2022 Debridement Debridement Wound (Right) [facility] Work Phone: Start: 06-26-2022 Blood chemistry [facility] Work Phone: Start: 06-25-2022 Referral to service [facility] Start: 06-25-2022 Consultation [facility] Start: 06-24-2022 Assessment of risk of venous thromboembolism [facility] Start: 06-24-2022 Care regimes management [facility] Start: 06-24-2022 Consultation for treatment [facility] Start: 06-24-2022 Insertion of catheter into peripheral vein [facility] Start: 06-24-2022 Providing care according to standard [facility] Start: 06-24-2022 Provision of activity privileges [facility] Start: 06-24-2022 Referral to occupational therapist [facility] Start: 06-24-2022 Referral to governor assembler [facility] Start: 06-24-2022 Referral to service [facility] Start: 06-24-2022 [facility] Start: 06-24-2022 Following clinical pathway protocol [facility] Start: 06-24-2022 End: 06-25-2022 [facility] Start: 06-24-2022 Verification routine [facility] Work Phone: Start: 06-24-2022 Admission procedure [facility] Start: 06-24-2022 End: 06-24-2022 Blood culture [facility] Work Phone: Start: 06-24-2022 Patient referral to dietitian [facility] Start: 06-23-2022 Cul bact aerobic addl meths definitive ea isol CULTURE AEROBIC IDENTIFY [facility] Start: 06-23-2022 Cul bact xcpt urine blood/stool aerobic isol CULTURE OTHR SPECIMN AEROBIC [facility] Start: 06-23-2022 Iadna s aureus amplified probe tq STAPH A DNA AMP PROBE [facility] Start: 06-23-2022 Smr prim src gram/giemsa stain bct fungi/cell SMEAR GRAM STAIN [facility] Start: 06-23-2022 [facility] Work Phone: Start: 04-27-2022 Hemoglobin A1c/Hemoglobin.total in Blood HBA1C [facility] Start: 04-09-2022 Patient discharge [facility] Work Phone: Start: 04-07-2022 Consultation [facility] Work Phone: Start: 04-07-2022 End: 04-07-2022 Referral to service [facility] Work Phone: Start: 04-06-2022 Elevation of affected extremity [facility] Work Phone: Start: 04-06-2022 [facility] Work Phone: Start: 04-06-2022 End: 04-06-2022 Following clinical pathway protocol [facility] Work Phone: Start: 04-06-2022 Ambulation without limitation [facility] Work Phone: Start: 04-06-2022 Assessment of risk of venous thromboembolism [facility] Work Phone: Start: 04-06-2022 Care regimes management [facility] Work Phone: Start: 04-06-2022 Consultation for treatment [facility] Work Phone: Start: 04-06-2022 Elevation of affected extremity [facility] Work Phone: Start: 04-06-2022 Insertion of catheter into peripheral vein [facility] Work Phone: Start: 04-06-2022 Notification of physician [facility] Work Phone: Start: 04-06-2022 Patient referral to dietitian [facility] Work Phone: Start: 04-06-2022 Providing care according to standard [facility] Work Phone: Start: 04-06-2022 Referral to governor assembler [facility] Work Phone: Start: 04-06-2022 Wound care [facility] Work Phone: Start: 04-06-2022 [facility] Work Phone: Start: 04-06-2022 Verification routine [facility] Work Phone: Start: 04-06-2022 Admission procedure [facility] Work Phone: Start: 04-06-2022 End: 04-07-2022 [facility] Work Phone: Start: 04-06-2022 Patient referral to dietitian [facility] Work Phone: Start: 04-05-2022 Assay of lactate ASSAY OF LACTIC ACID [facility] Work Phone: Start: 04-05-2022 Basic metabolic panel calcium total METABOLIC PANEL TOTAL CA [facility] Work Phone: Start: 04-05-2022 Blood count complete auto&auto difrntl wbc COMPLETE CBC W/AUTO DIFF WBC [facility] Work Phone: Start: 04-05-2022 Culture bacterial blood aerobic w/id isolates BLOOD CULTURE FOR BACTERIA [facility] Work Phone: Start: 04-05-2022 Emergency department visit moderate severity EMERGENCY DEPT VISIT [facility] Work Phone: Start: 04-05-2022 Iv infusion ther proph addl sequential to 1 hr TX/PROPH/DG ADDL SEQ IV INF [facility] Work Phone: Start: 04-05-2022 Iv infusion therapy prophylaxis/dx ea hour THER/PROPH/DIAG IV INF ADDON [facility] Work Phone: Start: 04-05-2022 Iv infusion therapy/prophylaxis /dx 1st to 1 hr THER/PROPH/DIAG IV INF INIT [facility] Work Phone: Start: 04-05-2022 Radex foot complete minimum 3 views X-RAY EXAM OF FOOT [facility] Work Phone: Start: 04-05-2022 End: 04-05-2022 Blood culture [facility] Work Phone: Start: 03-23-2022 End: 04-06-2022 SARS-CoV-2 (COVID-19) RNA [Presence] in Respiratory specimen by REBECCA with probe detection 2019 [facility] Microbiology Routine Acute cough Mild intermittent asthmatic bronchitis without complication Expected: 03/23/2022, Expires: 04/06/2022 [facility] Work Phone: Comment on above: Expected: 03/23/2022, Expires: Start: 03-12-2022 Influenza vaccination INFLUENZA (#1) [facility] Start: 01-30-2022 Celiac disease screen [facility] Work Phone: Start: 01-30-2022 Immunoglobulin measurement [facility] Work Phone: Start: 01-30-2022 Serum immunofixation [facility] Work Phone: Start: 01-30-2022 Vitamin B12 measurement [facility] Work Phone: Start: 01-30-2022 [facility] Work Phone: Start: 01-28-2022 HPV TESTING HPV TESTING [facility] Start: 01-28-2022 Screening for malignant neoplasm of cervix [facility] Start: 08-25-2021 COVID-19 VACCINE (2 - Moderna series) COVID-19 VACCINE (2 - Moderna series) [facility] Start: 03-10-2020 3 comp foot exam completed DIABETIC FOOT EXAM [facility] Start: 03-10-2020 ANNUAL PCP TEAM CHRONIC DISEASE VISIT ANNUAL PCP TEAM CHRONIC DISEASE VISIT [facility] Start: 03-10-2020 Diabetic foot examination Diabetic Foot Exam [facility] Start: 05-03-2018 PAP TESTING PAP TESTING [facility] Start: 05-03-2018 Screening for malignant neoplasm of cervix Pap Testing [facility] Start: 05-03-2016 Screening for malignant neoplasm of cervix Cervical Cancer Screening [facility] Start: 06-07-2014 Hepatitis B surface antibody level LDL CHOLESTEROL [facility] Start: 04-12-2014 Hepatitis B screening URINE ALBUMIN:CREATININE RATIO [facility] Start: 03-31-2014 Glaucoma screening Dilated Retinal Exam [facility] Start: 03-31-2014 Hepatitis C antibody, confirmatory test DILATED RETINAL EXAM [facility] Start: 03-06-2014 PNEUMOCOCCAL (2 - PCV) PNEUMOCOCCAL (2 - PCV) [facility] Start: 03-06-2014 Pneumococcal vaccination [facility] Start: 03-06-2014 Pneumococcal Vaccine: Pediatrics (0 to 5 Years) and At-Risk Patients (6 to 64 Years) (2 - PCV) Pneumococcal Vaccine: Pediatrics (0 to 5 Years) and At-Risk Patients (6 to 64 Years) (2 - PCV) [facility] Start: 01-28-2013 Screening for malignant neoplasm of cervix Pap Smear [facility] Start: 01-28-2011 DTaP/Tdap/Td Vaccines (1 - Tdap) DTaP/Tdap/Td Vaccines (1 - Tdap) [facility] Start: 01-28-2011 HEPATITIS B (1 of 3 - Risk 3-dose series) HEPATITIS B (1 of 3 - Risk 3-dose series) [facility] Start: 01-28-2011 Hepatitis B Vaccine (1 of 3 - 19+ 3-dose series) Hepatitis B Vaccine (1 of 3 - 19+ 3-dose series) [facility] Start: 01-28-2011 Urine microalbumin profile [facility] Start: 01-28-2010 HEPATITIS C SCREENING HEPATITIS C SCREENING [facility] Start: 01-28-2010 Hepatitis C screening Hepatitis C Screening [facility] Start: 01-28-2010 HIV SCREENING HIV SCREENING [facility] Start: 01-28-2010 HIV screening HIV Screening [facility] Start: 2004 Adult depression screening assessment DEPRESSION SCREENING [facility] Start: 01-28-2002 Diabetic foot examination Diabetes: Foot Exam [facility] Start: 01-28-2002 Glaucoma screening Diabetes: Retinopathy Screening [facility] Start: 01-28-2002 Preventive dental service Diabetes: Dental Exam [facility] Start: 01-28-1993 MMR Vaccines (1 of 1 - Standard series) MMR Vaccines (1 of 1 - Standard series) [facility] Start: 01-28-1993 Varicella vaccination Varicella Vaccines (1 of 2 - 2-dose childhood series) [facility] Start: 1992 COVID-19 VACCINE (#1) COVID-19 VACCINE (#1) [facility] Start: 1992 Hemoglobin A1c measurement Diabetes: Hemoglobin A1C [facility] Start: 1992 HEPATITIS B (1 of 3 - 3-dose series) HEPATITIS B (1 of 3 - 3-dose series) [facility] Start: 1992 Hepatitis B Vaccine (1 of 3 - 3-dose series) Hepatitis B Vaccine (1 of 3 - 3-dose series) [facility] Start: 1992 Hepatitis B Vaccines (1 of 3 - 3-dose series) Hepatitis B Vaccines (1 of 3 - 3-dose series) [facility] Start: 1992 HIV screening HIV Screening [facility] Start: 1992 Lipid panel Lipid Panel [facility] Acetone [Presence] i n Serum or Plasma [facility] Acid fast bacilli culture [facility] Work Phone: Acid fast bacilli culture [facility] Alanine aminotransfe rase [Enzymatic activity/volume] in Serum or Plasma [facility] Alanine aminotransfe rase [Enzymatic activity/volume] in Serum or Plasma [facility] Alanine aminotransfe rase [Enzymatic activity/volume] in Serum or Plasma [facility] Alanine aminotransfe rase [Enzymatic activity/volume] in Serum or Plasma [facility] Alanine aminotransfe rase [Enzymatic activity/volume] in Serum or Plasma [facility] Albumin [Mass/volume ] in Serum or Plasma [facility] Albumin [Mass/volume ] in Serum or Plasma [facility] Albumin [Mass/volume ] in Serum or Plasma [facility] Albumin [Mass/volume ] in Serum or Plasma [facility] Albumin [Mass/volume ] in Serum or Plasma [facility] Albumin [Moles/volum e] in Serum or Plasma [facility] Work Phone: Albumin/Globulin ratio [facility] Work Phone: Alkaline phosphatase [Enzymatic activity/volume] in Serum or Plasma [facility] Alkaline phosphatase [Enzymatic activity/volume] in Serum or Plasma [facility] Alkaline phosphatase [Enzymatic activity/volume] in Serum or Plasma [facility] Alkaline phosphatase [Enzymatic activity/volume] in Serum or Plasma [facility] Alkaline phosphatase [Enzymatic activity/volume] in Serum or Plasma [facility] Anion gap measurement [facility] Work Phone: Anion gap measurement [facility] Anion gap measurement [facility] Anion gap measurement [facility] Anion gap measurement [facility] Anion gap measurement [facility] Anion gap measurement [facility] Antibody to lupus [place] protein measurement [facility] Work Phone: Antibody to SS-A measurement [facility] Work Phone: Aspartate aminotrans ferase [Enzymatic activity/volume] in Serum or Plasma [facility] Aspartate aminotrans ferase [Enzymatic activity/volume] in Serum or Plasma [facility] Aspartate aminotrans ferase [Enzymatic activity/volume] in Serum or Plasma [facility] Aspartate aminotrans ferase [Enzymatic activity/volume] in Serum or Plasma [facility] Aspartate aminotrans ferase [Enzymatic activity/volume] in Serum or Plasma [facility] Bacteria identified in Blood by Culture Blood Culture [facility] Bacteria identified in Unspecified specimen by Anaerobe culture [facility] Work Phone: Bacteria identified in Unspecified specimen by Anaerobe culture [facility] Bacteria identified in Urine by Culture Urine Culture [facility] Beta hydroxybutyrate [Mass/volume] in Serum or Plasma [facility] Beta hydroxybutyrate [Mass/volume] in Serum or Plasma [facility] Bilirubin measurement, urine [facility] Bilirubin measurement, urine [facility] Bilirubin, total measurement [facility] Bilirubin, total measurement [facility] Bilirubin, total measurement [facility] Bilirubin, total measurement [facility] Bilirubin, total measurement [facility] Bilirubin.direct [Mass/volume] in Serum or Plasma [facility] Blood culture [facility] Work Phone: BUN/Creatinine ratio [facility] Work Phone: BUN/Creatinine ratio [facility] BUN/Creatinine ratio [facility] BUN/Creatinine ratio [facility] BUN/Creatinine ratio [facility] BUN/Creatinine ratio [facility] BUN/Creatinine ratio [facility] Calcium [Mass/volume ] in Serum or Plasma [facility] Work Phone: Calcium [Mass/volume ] in Serum or Plasma [facility] Calcium [Mass/volume ] in Serum or Plasma [facility] Calcium [Mass/volume ] in Serum or Plasma [facility] Calcium [Mass/volume ] in Serum or Plasma [facility] Calcium [Mass/volume ] in Serum or Plasma [facility] Calcium [Mass/volume ] in Serum or Plasma [facility] Carbon dioxide, tota l [Moles/volume] in Serum or Plasma [facility] Work Phone: Carbon dioxide, tota l [Moles/volume] in Serum or Plasma [facility] Carbon dioxide, tota l [Moles/volume] in Serum or Plasma [facility] Carbon dioxide, tota l [Moles/volume] in Serum or Plasma [facility] Carbon dioxide, tota l [Moles/volume] in Serum or Plasma [facility] Carbon dioxide, tota l [Moles/volume] in Serum or Plasma [facility] Carbon dioxide, tota l [Moles/volume] in Serum or Plasma [facility] CBC W Auto Different ial panel - Blood [facility] Centromere protein B Ab [Units/volume] in Serum [facility] Work Phone: Chloride [Moles/volu me] in Serum or Plasma [facility] Work Phone: Chloride [Moles/volu me] in Serum or Plasma [facility] Chloride [Moles/volu me] in Serum or Plasma [facility] Chloride [Moles/volu me] in Serum or Plasma [facility] Chloride [Moles/volu me] in Serum or Plasma [facility] Chloride [Moles/volu me] in Serum or Plasma [facility] Chloride [Moles/volu me] in Serum or Plasma [facility] Choriogonadotropin.b eta subunit ( test) [Presence] in Serum or Plasma [facility] Chromatin Ab [Units/ volume] in Serum or Plasma [facility] Work Phone: Comprehensive metabo lic 2000 panel - Serum or Plasma [facility] Creatinine [Moles/vo lume] in Serum or Plasma [facility] Work Phone: Creatinine [Moles/vo lume] in Serum or Plasma [facility] Creatinine [Moles/vo lume] in Serum or Plasma [facility] Creatinine [Moles/vo lume] in Serum or Plasma [facility] Creatinine [Moles/vo lume] in Serum or Plasma [facility] Creatinine [Moles/vo lume] in Serum or Plasma [facility] Creatinine [Moles/vo lume] in Serum or Plasma [facility] DNA double strand Ab [Units/volume] in Serum [facility] Work Phone: Electrophoresis: [id number] [facility] Work Phone: Electrophoresis: gabriella ma globulin [facility] Work Phone: Erythrocyte mean cor puscular volume determination [facility] Erythrocyte sediment ation rate [facility] Globulin measurement [facility] Work Phone: Glucose [Mass/volume ] in Serum or Plasma [facility] Work Phone: Glucose [Mass/volume ] in Serum or Plasma [facility] Glucose [Mass/volume ] in Serum or Plasma [facility] Glucose [Mass/volume ] in Serum or Plasma [facility] Glucose [Mass/volume ] in Serum or Plasma [facility] Glucose [Mass/volume ] in Serum or Plasma [facility] Glucose [Mass/volume ] in Serum or Plasma [facility] Hematocrit [Volume F raction] of Blood [facility] Work Phone: Hematocrit [Volume F raction] of Blood [facility] Hematocrit [Volume F raction] of Blood [facility] Hematocrit [Volume F raction] of Blood [facility] Hematocrit [Volume F raction] of Blood [facility] Hematocrit [Volume F raction] of Blood [facility] Hematocrit [Volume F raction] of Blood [facility] Hemoglobin [Mass/vol ume] in Blood [facility] Work Phone: Hemoglobin [Mass/vol ume] in Blood [facility] Hemoglobin [Mass/vol ume] in Blood [facility] Hemoglobin [Mass/vol ume] in Blood [facility] Hemoglobin [Mass/vol ume] in Blood [facility] Hemoglobin [Mass/vol ume] in Blood [facility] Hemoglobin [Mass/vol ume] in Blood [facility] Hemoglobin [Presence ] in Urine [facility] Hemoglobin [Presence ] in Urine [facility] IgA [Mass/volume] in Serum or Plasma [facility] Work Phone: IgE [Units/volume] i n Serum or Plasma [facility] Work Phone: IgG [Mass/volume] in Serum or Plasma [facility] Work Phone: IgM [Mass/volume] in Serum or Plasma [facility] Work Phone: Neva-1 extractable nuc lear Ab [Units/volume] in Serum [facility] Work Phone: Lactic acid measurement [facility] Work Phone: Leukocytes [#/volume ] in Blood [facility] Work Phone: Leukocytes [#/volume ] in Blood [facility] Leukocytes [#/volume ] in Blood [facility] Leukocytes [#/volume ] in Blood [facility] Leukocytes [#/volume ] in Blood [facility] Leukocytes [#/volume ] in Blood [facility] Leukocytes [#/volume ] in Blood [facility] Magnesium measurement [facility] Magnesium measurement [facility] Mean corpuscular hem oglobin concentration determination [facility] Work Phone: Mean corpuscular hem oglobin concentration determination [facility] Mean corpuscular hem oglobin concentration determination [facility] Mean corpuscular hem oglobin concentration determination [facility] Mean corpuscular hem oglobin concentration determination [facility] Mean corpuscular hem oglobin concentration determination [facility] Mean corpuscular hem oglobin concentration determination [facility] Mean corpuscular hem oglobin determination [facility] Work Phone: Mean corpuscular hem oglobin determination [facility] Mean corpuscular hem oglobin determination [facility] Mean corpuscular hem oglobin determination [facility] Mean corpuscular hem oglobin determination [facility] Mean corpuscular hem oglobin determination [facility] Mean corpuscular hem oglobin determination [facility] Measurement of immun oglobulin A in serum specimen [facility] Work Phone: Measurement of keton es in urine using dipstick [facility] Measurement of keton es in urine using dipstick [facility] Measurement of renal function [facility] Work Phone: Measurement of renal function [facility] Measurement of renal function [facility] Measurement of renal function [facility] Measurement of renal function [facility] Measurement of renal function [facility] Measurement of renal function [facility] Microbial culture, routine Wound Culture [facility] Work Phone: Microscopic urinalysis [facility] Work Phone: Microscopic urinalysis [facility] Microscopic urinalysis [facility] Mycobacterium sp marko ntified in Unspecified specimen by Organism specific culture [facility] Work Phone: Mycobacterium sp marko ntified in Unspecified specimen by Organism specific culture [facility] Neutrophil count [facility] Work Phone: Neutrophil count [facility] Neutrophil count [facility] Neutrophil count [facility] Neutrophil count [facility] Neutrophil count [facility] Neutrophil count [facility] Neutrophil cytoplasm ic Ab.classic [Units/volume] in Serum [facility] Work Phone: Neutrophil percent differential count [facility] Work Phone: Neutrophil percent differential count [facility] Neutrophil percent differential count [facility] Neutrophil percent differential count [facility] Neutrophil percent differential count [facility] Neutrophil percent differential count [facility] Neutrophil percent differential count [facility] End: 03-31-2024 NM Stomach Views for gastric emptying solid phase W radionuclide PO NM GASTRIC EMPTYING SOLID Radiology Routine Nausea 1 Occurrences starting 03/02/2023 until 03/31/2024 [facility] Work Phone: Comment on above: 1 Occurrences starting 03/02/2023 until 03/31/2024 Organism count, micr oscopic method [facility] Work Phone: P-ANCA measurement [facility] Work Phone: Patient Education [facility] Work Phone: Patient referral [facility] Work Phone: pH of Urine [facility] pH of Urine [facility] Platelets [#/volume] in Blood [facility] Work Phone: Platelets [#/volume] in Blood [facility] Platelets [#/volume] in Blood [facility] Platelets [#/volume] in Blood [facility] Platelets [#/volume] in Blood [facility] Platelets [#/volume] in Blood [facility] Platelets [#/volume] in Blood [facility] Potassium [Moles/vol ume] in Serum or Plasma [facility] Work Phone: Potassium [Moles/vol ume] in Serum or Plasma [facility] Potassium [Moles/vol ume] in Serum or Plasma [facility] Potassium [Moles/vol ume] in Serum or Plasma [facility] Potassium [Moles/vol ume] in Serum or Plasma [facility] Potassium [Moles/vol ume] in Serum or Plasma [facility] Potassium [Moles/vol ume] in Serum or Plasma [facility] Protein electrophore sis panel - Serum or Plasma [facility] Work Phone: Radionuclide gastric emptying study [facility] Red blood cell count [facility] Work Phone: Red blood cell count [facility] Red blood cell count [facility] Red blood cell count [facility] Red blood cell count [facility] Red blood cell count [facility] Red blood cell count [facility] Red cell distributio n width determination [facility] Work Phone: Red cell distributio n width determination [facility] Red cell distributio n width determination [facility] Red cell distributio n width determination [facility] Red cell distributio n width determination [facility] Red cell distributio n width determination [facility] Red cell distributio n width determination [facility] SCL-70 extractable n uclear Ab [Units/volume] in Serum by Immunoassay [facility] Work Phone: Serum protein electrophoresis [facility] Work Phone: Jang extractable nu clear Ab [Presence] in Serum [facility] Work Phone: Sodium [Moles/volume ] in Serum or Plasma [facility] Work Phone: Sodium [Moles/volume ] in Serum or Plasma [facility] Sodium [Moles/volume ] in Serum or Plasma [facility] Sodium [Moles/volume ] in Serum or Plasma [facility] Sodium [Moles/volume ] in Serum or Plasma [facility] Sodium [Moles/volume ] in Serum or Plasma [facility] Sodium [Moles/volume ] in Serum or Plasma [facility] Specific gravity of Urine [facility] Specific gravity of Urine [facility] Tissue transglutamin ase IgA Ab [Units/volume] in Serum [facility] Work Phone: Total protein measurement [facility] Total protein measurement [facility] Total protein measurement [facility] Total protein measurement [facility] Total protein measurement [facility] Urea nitrogen [Mass/ volume] in Serum or Plasma [facility] Work Phone: Urea nitrogen [Mass/ volume] in Serum or Plasma [facility] Urea nitrogen [Mass/ volume] in Serum or Plasma [facility] Urea nitrogen [Mass/ volume] in Serum or Plasma [facility] Urea nitrogen [Mass/ volume] in Serum or Plasma [facility] Urea nitrogen [Mass/ volume] in Serum or Plasma [facility] Urea nitrogen [Mass/ volume] in Serum or Plasma [facility] Urinalysis, blood, qualitative [facility] Work Phone: Urinalysis, blood, qualitative [facility] Urinalysis, blood, qualitative [facility] Urine dipstick for glucose [facility] Urine dipstick for glucose [facility] Urine dipstick for l eukocyte esterase [facility] Urine dipstick for l eukocyte esterase [facility] Urine dipstick for nitrite [facility] Urine dipstick for nitrite [facility] Urine dipstick for protein [facility] Urine dipstick for protein [facility] Urine examination [facility] Urine examination [facility] Urine microscopy: ep ithelial cells [facility] Work Phone: Urine microscopy: ep ithelial cells [facility] Urine microscopy: ep ithelial cells [facility] Urine Microscopy: white cells [facility] Urine Microscopy: white cells [facility] Urobilinogen [Presen ce] in Urine [facility] Urobilinogen [Presen ce] in Urine [facility] Vancomycin [Mass/vol ume] in Serum or Plasma --trough [facility] Work Phone: White blood cell count [facility] Work Phone: [facility] Immunizations Immunization Date Immunization Notes Care Provider Gabi samson 06-30-2021 Covid (Moderna) [facility] Work Phone: [facility] 04-13-2013 influenza virus vacc ine, unspecified formulation Alyssa Jaime APRN.[employer] W[employer]ER Work Phone: [facility] 03-06-2013 pneumococcal polysaccharide vaccine, 23 valent Alyssa Jaime APRN.[employer] Work Phone: [facility] Work Phone: Payers Date Payer Category Payer Self-pay [id number] 2021 Medicaid [id number] 2021 Medicaid [employer] [place] [id number] 2021-[facility] [phone] [address] [address] [place] [address] Medicaid [id number] 2021 Medicaid [id number]. [id number] 1990 Unknown [id number] 2.16.840.1.706816.3.579.2.651 1990 Unknown [id number] 2.16.840.1.653976.3.579.2.651 1990 Unknown [id number] 2.16.840.1.129212.3.579.2.627 1990 Unknown [id number] 2.16.840.1.336531.3.579.2.627 Unknown [id number] 2.16.840.1.027635.3.579.2.462 Unknown [id number] 2.16840.1.768417.3.579.2.462 Unknown [id number] 2.16.840.1.399784.3.579.2.462 Unknown [id number] 2.16.840.1.907471.3.579.2.462 Unknown [id number] 2.16.840.1.605355.3.579.2.462 Unknown [id number] 2.16.840.1.713566.3.579.2.462 Unknown [id number] 2.16.840.1.543525.3.579.2.462 Unknown [id number] 2.16.840.1.989337.3.579.2.462 Unknown [id number] 2.16.840.1.662644.3.579.2.462 Unknown [id number] 2.16.840.1.399451.3.579.2.462 Unknown [id number] 2.16.840.1.830842.3.579.2.462 Unknown [id number] 2.16.840.1.363282.3.579.2.462 Unknown [id number] 2.16.840.1.478136.3.579.2.462 Unknown [id number] 2.16.840.1.196363.3.579.2.462 Unknown [id number] 2.16.840.1.132424.3.579.2.462 Unknown [id number] 2.16.840.1.064526.3.579.2.462 Unknown [id number] 2.16.840.1.294981.3.579.2.462 Unknown [id number] 2.16.840.1.693550.3.579.2.462 Unknown [id number] 2.16.840.1.173314.3.579.2.462 Unknown [id number] 2.16.840.1.235008.3.579.2.462 Unknown [id number] 2.16.840.1.365731.3.579.2.462 Unknown [id number] 2.16.840.1.090940.3.579.2.462 Unknown [id number] 2.16.840.1.274506.3.579.2.462 Social History Date Type Detail Facility [facility] Work Phone: Start: 10-24-2021 End: 06-27-2023 Tobacco smoking status WIIS Unknown if ever smoked [facility] Start: 1990 Sex Assigned At Female W [facility] Start: 03-03-2013 End: 11-25-2024 Tobacco smoking status WIIS Smokes tobacco daily [facility] Work Phone: History of tobacco use Cigarette Smoker [facility] Start: 05-15-2021 End: 02-02-2022 Alcohol intake Current drinker of alcohol (finding) [facility] Start: 05-03-2013 History SDOH Alcohol Comment Seldom [facility] Start: 1990 Sex Assigned At Not on file C [facility] Start: 04-15-2021 End: 01-24-2023 Exposure to SARS-CoV-2 (event) Not sure [facility] Work Phone: Start: 03-03-2013 End: 02-10-2023 Cigarettes smoked current (pack per day) - Reported 0.5 [facility] Start: 03-03-2013 End: 06-26-2024 Tobacco use and exposure Smokeless tobacco non-user [facility] Start: 01-10-2023 Tobacco smoking status Smoker (findi ng) [facility] Start: 01-24-2023 End: 02-10-2023 Alcohol Use Disorder Identification Test - Consumption [AUDIT-C] [facility] How often to you hav e a drink containing alcohol? Monthly or less [facility] How many standard dr inks containing alcohol do you have on a typical day? 1 or 2 [facility] How often do you hav e 6 or more drinks on 1 occasion? Less than monthly [facility] Start: 01-24-2023 Alcohol Comment occ. [facility] National Score (1-10 0), lower number is lower risk 92 [facility] Work Phone: Start: 02-19-2023 End: 07-03-2024 Alcohol intake Ex-drinker (finding) [facility] Start: 02-18-2023 Alcohol Comment rare [facility] (I/We) worried wheth er (my/our) food would run out before (I/we) got money to buy more. Never true [facility] Work Phone: In the past 12 month s, was there a time when you were not able to pay the mortgage or rent on time? No [facility] Work Phone: Start: 10-19-2024 End: 11-01-2024 Sex Female (finding) [facility] Start: 12-30-2024 End: 12-31-2024 Tobacco smoking status NHIS Ex-smoker (finding) [facility] NEGATED: Highlighted row [facility] NEGATED: Highlighted row Not [facility] Medical Equipment Procedure Code Equipment Code Equipment Origin al Text Equipment Identifier Dates Repair, tendon, Achilles BIOSKIN, 2 X 4 FDA Start: 12-24-2023 Repair, tendon, Achilles FIBERTAPE FDA Start: 12-24-2023 Repair, tendon, Achilles SUTURETAPE,FIBER LOOP FDA Start: 12-24-2023 Repair, tendon, Achilles Aria Citrefix Xpress System FDA Start: 12-24-2023 Repair, tendon, Achilles [place] Citrefix Xpress System FDA Start: 12-24-2023 Repair, tendon, Achilles VIAFLOW, 1CC FDA Start: 12-24-2023 Repair, tendon, Achilles Guevara Graft Jacket Now Standard FDA Start: 12-24-2023 Repair, tendon, Achilles [id number] FDA Start: 12-24-2023 Repair, tendon, Achilles [...] LOOP FDA Start: 12-24-2023 Repair, tendon, Achilles [place] Cit[employer]ix Xpress System FDA Start: 12-24-2023 Repair, [...] System FDA Start: 12-24-2023 Repair, tendon, Achilles [place] Cit[employer]ix Xpress System FDA Start: 12-24-2023 Repair, tendon, Achilles VIAFLOW, 1CC FDA Start: 12-24-2023 Repair, tendon, Achilles Guevara Graft Jacket Now Standard FDA Start: 12-24-2023 Repair, tendon, Achilles BIOSKIN, 2 X 4 FDA Start: 12-24-2023 Repair, tendon, Achilles FIBERTAPE FDA Start: 12-24-2023 Repair, tendon, Achilles SUTURETAPE,FIBER LOOP FDA Start: 12-24-2023 Repair, tendon, Achilles [place] Cit[employer]ix Xpress System FDA Start: 12-24-2023 Repair, [...] Standard FDA Start: 12-24-2023 Repair, tendon, Achilles FDA Start: 12-24-2023 Repair, tendon, Achilles FDA Start: 12-24-2023 Repair, tendon, Achilles FDA Start: 12-24-2023 Repair, tendon, Achilles FDA Start: 12-24-2023 Repair, tendon, Achilles FDA Start: 12-24-2023 Repair, tendon, Achilles FDA Start: 12-24-2023 Repair, tendon, Achilles FDA Start: 12-24-2023 Repair, tendon, Achilles FDA Start: 12-24-2023 Repair, tendon, Achilles FDA Start: 12-24-2023 Repair, tendon, Achilles FDA Start: 12-24-2023 Repair, tendon, Achilles FDA Start: 12-24-2023 Repair, tendon, Achilles FDA Start: 12-24-2023 Repair, tendon, Achilles FDA Start: 12-24-2023 Repair, tendon, Achilles FDA Start: 12-24-2023 Incision and drainage, abscess DRESSING,SURGICEL 4x8 FDA Start: 07-23-2023 Incision and drainage, abscess [id number] FDA Start: 07-23-2023 Incision and drainage, abscess [...] FDA Start: 07-23-2023 Incision and drainage, abscess FDA Start: 07-23-2023 Incision and drainage, abscess FDA Start: 07-23-2023 [id number] Start: 11-27-2013 End: 02-18-2023 Comment on above: Test blood sugar(s) 1 times daily. Dx: 250.02. Insulin: No Test blood sugar(s) 1 daily. Dx: 250.02. 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, 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, Laundry, Meal preparation, Personal ADL, Shopping [facility] 02-11-2023 Functional Status Identified as high risk, Fall ID band on, Door open, Room check performed [facility] 02-11-2023 Functional Status [facility] 02-11-2023 Functional Status [facility] 02-11-2023 Functional Status Patient refused [facility] 02-10-2023 Functional Status [facility] 01-15-2023 Functional status Up ad nella [facility] Work Phone: 01-10-2023 Functional Status Independent [facility] 01-10-2023 Functional Status Standard Safet y Call device within reach, Bed in low position, Wheels locked, Safety level maintained [facility] 08-15-2022 Functional status Ambulates [facility] Work Phone: 06-29-2022 Functional status Ambulates;Up a d nella;Bedside [facility] Work Phone: 06-25-2022 Functional status Ambulates;Up a d nella;Bathroom Privilege [facility] Work Phone: 04-09-2022 Functional status Bedside [facility] Work Phone: Mental Status Date Assessment Result Facility 01-01-2025 Cognitive function Voice/Name [facility] Work Phone: 12-31-2024 Cognitive function Voice/Name [facility] Work Phone: 11-28-2024 Cognitive function [facility]/Name [facility] Work Phone: 07-23-2023 Cognitive function [facility]/Name [facility] Work Phone: 05-08-2023 Cognitive function Voice/Name [facility] Work Phone: 02-11-2023 Mental Status Oriented x 4 [facility] 02-11-2023 Mental Status [facility] 02-10-2023 Mental Status [facility] 01-14-2023 Cognitive function Appropriate;Cooperativ e [facility] Work Phone: 01-10-2023 Mental Status Orientation Oriented x 4 [facility] 08-15-2022 Cognitive function Voice/Name [facility] Work Phone: 08-12-2022 Cognitive function Level Of Cons ciousness Awake;Alert;Appropriate [facility] Work Phone: 06-29-2022 Cognitive function Voice/Name [facility] Work Phone: 06-25-2022 Cognitive function Voice/Name [facility] Work Phone: 04-09-2022 Cognitive function Voice/Name [facility] Work Phone: Clinical Notes 04-28-2013 to 01-01-2025 Note Date & Type Note Facility 01-01-[address] [facility] 01-01-2025 History and physi jose g note Note Date/Time January 01, 2025 6:02am [facility] Medical Records Department [address] [place] [address] H&P Exam - Hospitalist 12/31/24 [id number] MR#: [id number] Acct: [id number] Name: GHISLAINE GIVENS Rep #:[id number] : 1990 34 From: Dewayne Solis DO PCP: BROOKLYN Warren, LASER PRINT OPERATOR-C Statu s:ADM IN Location: ICU CVICU20 3-1 HPI - General General Date of Admission: 12/31/24 Date of Service: 12/31/24 Chief Complaint: Hyperglycemia with N/V after Leaving AMA while being treated for DKA. HPI Narrative GHISLAINE GIVENS, is a 34 F with a past medical history of obesity; with BMI of 38.4 this admission, DM-2; uncontrolled with hyperglycemia with history of DKA and diabetic neuropathy on insulin glargine 20 units twice daily, history of Right diabetic foot ulcer; with history of MRSA and s/p TMA (2021), history of cyclic vomiting disorder; at least partially caused by cannabis abuse, chronic asthma; probably intermittent, depression with anxiety, borderline personality disorder, chronic insomnia, IBS; of constipation-type on linaclotide, GERD, history of admission here for stercoral colitis December 03, 2024 and very recent admission here on December 30, 2024 for treatment of DKA with history of DM-2 complicated by cyclic vomiting disorder who then inexplicably left this hospitalAMA from the ICU on the morning of December 31, 2024 who now re-presents to [facility] ER complaining of hyperglycemia with intractable nausea and vomiting. Ms. Givens reports after leaving the hospital she went home and went to sleep and then woke up with intractable nausea and vomiting. She also admits to severe cramping abdominal pain similar to her previous bout of DKA. She then checked her blood sugar and noted it had been continuing to climb in spite of being unable to eat so she finally decided to come back in for further evaluation and treatment. She denies associated fever, chills, runny nose, sorethroat, ear pain, chest pain, palpitations, heart racing, shortness of breath, cough, dysuria, hematuria, back pain or rash. In the ER she was noted to have mild hyperglycemia at 177 mg/dL with an elevated beta hydroxybutyric acid of 0.6mmol/L present on admission consistent with recurrent DKA complicated by cyclical nausea and vomiting with cramping abdominal pain in the setting of medical noncompliance with patient is having left AMA from the ICU earlier this morning. She was then admitted to the ICU for ongoing care for stay that expected to extend beyond 2 midnights. [facility] Medical History Type 2 diabetes mellitus with peripheral neuropathy Diabetes GERD (gastroesophageal reflux disease) Wears glasses History of MRSA infection Borderline personality disorder Alcohol use Insulin dependent diabetes mellitus Dietary restriction Heartburn Smoker Shortness of breath on exertion Leg cramps Neuropathy, diabetic Elevated serum creatinine Failure of [...] 4.5 mg/0.5 mL 4.5 mg subcut SA diabetes 11/18/24 History subcutaneous pen injector (Trulicity) linaclotide 145 mcg capsule 145 mcg PO QAM IBS #30 cap s 12/13/24 12/29/24 Rx (Linzess) Allergy/AdvReac Type Severity Reaction Status Date / Time No Known Allergies Allergy Verified 12/31/24 18:33 Family History Other Bleeding disorder Cancer Diabetes Hypertension Surgical History Hx of foot surgery Hx of foot surgery Social History Smoking Status: Former smoker alcohol intake: never substance use type: does not use what type of physical activity do you participate in: none ROS ROS Narrative Review of Systems: Constitutional: Patient denies fever or chills. Eyes: Patient denies change in vision or discharge from eyes. ENT: Patient denies runny nose, sore throat or ear pain. Resp: Patient denies shortness of breath or cough. CV: Patient denies chest pain, palpitations, heart racing or lower extremity edema. GI: Patient admits to nausea and vomiting with bilious emesis with diffuse cramping abdominal pain as per HPI. : Patient denies dysuria, hematuria or urinary frequency. MSK: Patient denies arthralgias or myalgias. Skin: Patient denies rash, wounds or abscess. Psych: Patient denies symptoms of uncontrolled depression or anxiety. Neuro: Patient denies headache, paresthesias or focal neurologic deficits. Allergy: Patient denies lip swelling, tongue swelling or urticaria. Hematology: Patient denies easy bleeding or easy bruisability. Endocrinology: Patient denies polyuria, polydipsia, polyphagia or heat/cold intolerance. 14 point ROS otherwise negative except for positives noted above in HPI. Vital Signs Vital Signs Vital Signs: 12/31/24 18:33 12/31/24 19:33 12/31/24 19:37 Temperature 97.6 F L Temperature Source Temporal Pulse Rate 96 84 Respiratory Rate 16 20 H Respiratory Effort Normal Non-Labored Respiratory Pattern Tachypnea Blood Pressure 153/128 H 120/105 H Blood Pressure Mean 136 110 Pulse Ox 100 100 Oxygen Delivery Method Room Air Room Air 12/31/24 20:00 12/31/24 21:00 12/31/24 22:00 Temperature Temperature Source Pulse Rate 79 94 91 Respiratory Rate 22 H 23 H 20 H Respiratory Effort Respiratory Pattern Blood Pressure 151/90 H 146/89 H 143/85 H Blood Pressure Mean 110 108 104 Pulse Ox 100 97 97 Oxygen Delivery Method Room Air Room Air Room Air Weight Weight: 238 lb Body Mass Index (BMI) 38.4 Physical Exam Const alert and oriented x3 Constitutional Narrative: Obese with moderate distress noted. General Appearance: cooperative HEENT normocephalic, head/scalp atraumatic and hearing grossly normal bilaterally HEENT Narrative: Mucous membranes dry. Eyes PERRL, EOMs intact bilaterally and conjunctivae normal Neck no lymphadenopathy, supple and no JVD Resp normal respiratory effort, no retractions, no use of accessory muscles and clearto auscultation bilaterally Cardio regular rate and regular rhythm GI soft to palpation and non-distended GI Narrative: Generalized tenderness to palpation with no guarding or rebound. Extremity normal to inspection, full ROM and no clubbing, cyanosis or edema Skin Skin Narrative: Patient denies rash, abscess, wounds or jaundice. Neuro oriented x3, CN's II-XII intact bilaterally, moves all extremities and no focal motor deficits Sensorium / Orientation: awake, alert, oriented to person, oriented to place andoriented to time Speech: speech normal Psych Mood & Affect: anxious Results Medical Records Data Attestation: I reviewed the patient's medical records Lab / Micro Data Attestation: I reviewed the patient's lab results. 12/31/24 19:30 12/31/24 23:58 Labs: Laboratory Results - last 24 hr 12/31/24 18:39: POC Glucose 140 H 12/31/24 19:30: WBC 9.9, RBC 4.53, Hgb 12.4, Hct 38.0, MCV 83.9, MCH 27.4, MCHC 32.6, RDW Std Deviation 43.4, RDW Coeff of John 14.3, Plt Count 400, MPV 9.5, Immature Gran % (Auto) 0.700, Neut % (Auto) 64.4, Lymph % (Auto) 27.7, Braxton % (Auto) 6.4, Eos % (Auto) 0.3, Baso % (Auto) 0.5, Absolute Neuts (auto) 6.4, Absolute Lymphs (auto) 2.74, Nucleated RBC % 0, Sodium 140, Potassium 3.8, Chloride 105, Carbon Dioxide 20.4 L, Anion Gap 15, BUN 7, Creatinine 0.99, EstimCreat Clear Calc 101.44, Est GFR (MDRD) Non-Af 77, BUN/Creatinine Ratio 7.1 L, Glucose 160 H, Calcium 9.1, b-Hydroxybutyric mmol/L 0.6 H, Urine Color Yellow, Urine Clarity Cloudy, Urine pH 6.0, Ur Specific Zephyr 1.020, Urine Protein 30 H, Urine Glucose (UA) Normal, Urine Ketones 5 H, Urine Occult Blood 25 H, Urine Nitrite Negative, Urine Bilirubin Negative, Urine Urobilinogen Normal, Ur Leukocyte Esterase 100 H, Urine RBC 0 SEEN, Urine WBC 0-5 SEEN, Ur Squamous Epith Cells 0-5 SEEN, Urine Bacteria 3+, Urine Mucus 0 SEEN 12/31/24 19:43: POC Glucose 152 H 12/31/24 21:20: Sodium 139, Potassium 3.7, Chloride 108, Carbon Dioxide 18.2 L, Anion Gap 13, BUN 7, Creatinine 0.85, Estim Creat Clear Calc 118.14, Est GFR (MDRD) Non-Af 93, BUN/Creatinine Ratio 8.0 L, Glucose 177 H, Calcium 8.2 12/31/24 21:35: POC Glucose 169 H ABG Data ABG results: ABG 12/31/24 19:36 Specimen Type ESTRELLA Sample Site Not entered VBG pH 7.49 H VBG pO2 22 L VBG HCO3 24 VBG Total CO2 25 VBG O2 Sat (Calc) 43 L VBG Base Excess 0 POC Mix VBG pCO2 Pt Tmp 30.7 L O2 Delivery Device Room Air Assessment & Plan Assessment/Plan (1) Diabetic ketoacidosis: QUALIFIERS: Diabetes mellitus complication detail: without coma Diabetes mellitus type: type 2 Qualified Code(s): E11.10 - Type 2 diabetes mellitus with ketoacidosis without coma (2) Cyclic vomiting syndrome: (3) Cannabis abuse: (4) Medical non-compliance: (5) Depression with anxiety: (6) Borderline personality disorder: (7) Obesity (BMI 30-39.9): (8) Type 2 diabetes mellitus with peripheral neuropathy: PLAN: Plan 1. DKA; evidenced by persistent hyperglycemia with elevated beta hydroxy butyric acid of 0.6 mmol/L present on admission - Admit to ICU. Continue IV insulin begun in the ER and titrate per protocol. We will consult clinical dietitian for further diabetic teaching to help this patient optimize her understanding of how to treat her condition without appreciated in advance. 2. Cyclical vomiting syndrome in the setting of ongoing cannabis abuse complicating #1 - Give ondansetron IV prn for nausea and vomiting. Give promethazine prn for breakthrough nausea. Place scopolamine patch to help breakcycle of GI upset. Cannabis cessation will be strongly encouraged. 3. Very recent admission here on December 30, 2024 for treatment of DKA with history of DM-2 complicated by cyclic vomiting disorder who then inexplicably left this hospital AMA from the ICU on the morning of December 31, 2024 constitutingmedical noncompliance precipitating #1 & #2 - Patient will be encouraged not to leave AMA to avoid further serial readmission. 4. Uncontrolled Depression with Anxiety in the setting of borderline personality disorder adding to the medical complexity of #1 - #3 - Give low-doseIV lorazepam for breakthrough symptoms. 5. Obesity; with BMI of 38.4 this admission adding to the burden of disease outlined from #1 - #4 - Weight loss will be recommended. Check TSH. This complicates her case may have recovery. 6. DM-2; uncontrolled with hyperglycemia with history of DKA and diabetic neuropathy on insulin glargine 20 units twice daily - We will attempt to transition patient back onto her normal insulin regimen after she completes insulin drip as outlined in #1. 7. History of Right diabetic foot ulcer; with history of MRSA and s/p TMA (2021) - Noted. 8. Chronic asthma; probably intermittent - Stable no evidence of acute flare atthis time. 9. Chronic insomnia - Give IV lorazepam as needed. 10. IBS; of constipation-type on linaclotide - Restart this agent when patient is able to resume oral intake. 11. GERD - Start pantoprazole IV in light of #1 & #2. 12. History of admission here for sterile coral colitis December 03, 2024 - Noted. 13. DVT prophylaxis - Enoxaparin 40 mg sq daily plus SCD's. Total time: Approximately (but not less than) 75 minutes. Charges/Coding Visit Charges Inpatient E&M: 94598 Init Hosp L3 01/01/25 0602 <Electronically signed by Dewayne Grant DO> Cosigner Signature (if applicable): CC: BROOKLYN Solorzano; Dr. Dewayne Grant DO~ Signed [facility] Work Phone: 1(556) 423-463006-23-2025 Discharge summary Author Poli Barfield [facility] Note Date/Time December 31, 2024 11:5 1pm [facility] Medical Records Department [address] [place] [address] Emergency Department Summary 12/31/24 MR#: [id number] Acct: [id number] Name: GHISLAINE GIVENS Rep #:[id number] : 1990 34 From: Poli Farah PCP: BROOKLYN Warren, LASER PRINT OPERATOR-C Statu s:ADM IN Location: ICU CVICU20 3-[address] Poli Barfield DO on 12/31/24 at 2351 EKG: Sinus rate of 82, no ST changes. QTc 422. 12/31/24 2351<Electronically signed by Poli Farah> Cosigner Signature (if applicable): cc: BROOKLYN Solorzano ~* Signed HPI History of Present Illness Chief Complaint: Hyperglycemia Informant: patient Narrative Narrative: Returns to ED after signout remained in the ICU this morning. She was admitted by myself yesterday for DKA as she was taken off her Trulicity a month ago secondary to admission for stercoral colitis. She reported no marijuana use forover a month however had a positive test yesterday. She states she had anxiety attack this morning therefore left. She is still on the insulin pump was given her Lantus of 25 units. She went home's labs she states she woke up she vomitedmultiple times again. States abdominal cramping similarly previously. She states she has been checking her glucoses been continuing to climb up. No cough. No urinary symptoms. Prior similar symptoms: Yes PFSH PFS Medical History (Updated 12/31/24 @ 23:[address] Poli Barfiedl DO) Type 2 diabetes mellitus with peripheral neuropathy Diabetes GERD (gastroesophageal reflux disease) Wears glasses History of MRSA infection Borderline personality disorder Alcohol use Insulin dependent diabetes mellitus Dietary restriction Heartburn Smoker Shortness of breath on exertion Leg cramps Neuropathy, diabetic Elevated serum creatinine Failure of [...] / Time No Known Allergies Allergy Verified 12/31/24 18:33 Family History Other Bleeding disorder Cancer Diabetes [...] or dyspnea on exertion Gastrointestinal Gastrointestinal: Reports abdominal pain, nausea and vomiting; Denies diarrhea Genitourinary Genitourinary ED: Denies dysuria, hematuria or urinary frequency Musculoskeletal Musculoskeletal: Denies back pain, extremity pain or neck pain Integumentary Denies rash or wounds Neurologic Neurologic: Denies headache(s), paresthesias or weakness EXAM Physical Exam Const Vital Signs: 12/31/24 18:33 12/31/24 19:33 12/31/24 19:37 Temperature 97.6 F L Temperature Source Temporal Pulse Rate 96 84 Respiratory Rate 16 20 H Respiratory Effort Normal Non-Labored Respiratory Pattern Tachypnea Blood Pressure 153/128 H 120/105 H Blood Pressure Mean 136 110 Pulse Ox 100 100 Oxygen Delivery Method Room Air Room Air 12/31/24 20:00 12/31/24 21:00 12/31/24 22:00 Temperature Temperature Source Pulse Rate 79 94 91 Respiratory Rate 22 H 23 H 20 H Respiratory Effort Respiratory Pattern Blood Pressure 151/90 H 146/89 H 143/85 H Blood Pressure Mean 110 108 104 Pulse Ox 100 97 97 Oxygen Delivery Method Room Air Room Air Room Air Positive well nourished and well developed Constitutional Narrative: Tearful holding emesis bag. General Appearance ED: well developed HEENT Reports [...] inspection, nondistended, normoactive bowel sounds GI Narrative: Mild generalized tenderness without guarding or rebound. Palpation: Negative for guarding or rebound tenderness present Extremity normal to inspection General Extremety ED: Negative for edema or tenderness General Extremity: Negative for edema Neuro oriented x3 and no sensory deficits noted Sensorium / Orientation: awake and alert Skin no rashes or lesions noted and no wounds MDM MDM MDM Narrative Medical decision making narrative: Interventions / MDM: Differential diagnosis: Diabetic ketoacidosis, nausea vomiting, cyclic vomiting syndrome Diagnosis considered but do not suspect: N/A My EKG interpretation: N/A Imaging independently reviewed and interpreted by myself: N/A External documents reviewed: Discharge summary with patient signed AMA while being bridged with Lantus and insulin drip. Test considered but not ordered:N/A ED course: Tearful holding emesis bag. States glucose has been rising with nausea and vomiting. DKA labs were ordered 2 L of fluid ordered. Will order cyclic vomiting medication of Ativan Pepcid and Zofran. VBG pH is 7.49 CO2 30 O2 21. 2135: Patient required edition no cyclic vomiting medications Compazine [place] fluids. She is sleeping currently. She had a glucose of 1 6 in the lab however did have beta hydroxybutyrate elevated at 0.6 her gap was normal high at15. She had 2 L of fluid ordered. Currently reevaluation she is sleeping. Repeat BMP is pending. Glucose 152 urine 100 leukocytes, 3+ bacteria. 0: Repeat BMP gap down to 13. Did resend for repeat beta hydroxybutyrate. However patient is only on long-acting insulin. I discussed with hospitalist Dr. Teresa, discussed patient's history and presentation yesterday. We do agree she could be euglycemic diabetic ketoacidosis he recommends restarting insulin drip along with D5 half-normal saline with 20 mEq of potassium to run at150. We will admit her to ICU for further management. Later patient reporting some for pain for cramping shows nonsurgical abdomen. Levsin ordered. Re-evaluation: stable Disposition discussed with patient/family/significant other: Patient Case discussed with consulting clinician: Hospitalist This note was generated with [employer] dictation software. It may contain incorrectwords, spelling, and punctuation that were not noted in checking the note beforesigning. Lab Data Attestation: I reviewed the patient's lab results. Labs: Laboratory Results - last 24 hr 12/31/24 12/31/24 12/31/24 18:39 19:30 19:43 WBC 9.9 RBC 4.53 Hgb 12.4 Hct 38.0 MCV 83.9 MCH 27.4 MCHC 32.6 RDW Std Deviation 43.4 RDW Coeff of John 14.3 Plt Count 400 MPV 9.5 Immature Gran % (Auto) 0.700 Neut % (Auto) 64.4 Lymph % (Auto) 27.7 Braxton % (Auto) 6.4 Eos % (Auto) 0.3 Baso % (Auto) 0.5 Absolute Neuts (auto) 6.4 Absolute Lymphs (auto) 2.74 Nucleated RBC % 0 Sodium 140 Potassium 3.8 Chloride 105 Carbon Dioxide 20.4 L Anion Gap 15 BUN 7 Creatinine 0.99 Estim Creat Clear Calc 101.44 Est GFR (MDRD) Non-Af 77 BUN/Creatinine Ratio 7.1 L Glucose 160 H Calcium 9.1 b-Hydroxybutyric mmol/L 0.6 H Urine Color Yellow Urine Clarity Cloudy Urine pH 6.0 Ur Specific Zephyr 1.020 Urine Protein 30 H Urine Glucose (UA) Normal Urine Ketones 5 H Urine Occult Blood 25 H Urine Nitrite Negative Urine Bilirubin Negative Urine Urobilinogen Normal Ur Leukocyte Esterase 100 H Urine RBC 0 SEEN Urine WBC 0-5 SEEN Ur Squamous Epith Cells 0-5 SEEN Urine Bacteria 3+ Urine Mucus 0 SEEN POC Glucose 140 H 152 H 12/31/24 12/31/24 21:20 21:35 WBC RBC Hgb Hct MCV MCH MCHC RDW Std Deviation RDW Coeff of John Plt Count MPV Immature Gran % (Auto) Neut % (Auto) Lymph % (Auto) Braxton % (Auto) Eos % (Auto) Baso % (Auto) Absolute Neuts (auto) Absolute Lymphs (auto) Nucleated RBC % Sodium 139 Potassium 3.7 Chloride 108 Carbon Dioxide 18.2 L Anion Gap 13 BUN 7 Creatinine 0.85 Estim Creat Clear Calc 118.14 Est GFR (MDRD) Non-Af 93 BUN/Creatinine Ratio 8.0 L Glucose 177 H Calcium 8.2 b-Hydroxybutyric mmol/L Urine Color Urine Clarity Urine pH Ur Specific Zephyr Urine Protein Urine Glucose (UA) Urine Ketones Urine Occult Blood Urine Nitrite Urine Bilirubin Urine Urobilinogen Ur Leukocyte Esterase Urine RBC Urine WBC Ur Squamous Epith Cells Urine Bacteria Urine Mucus POC Glucose 169 H ABG Data ABG results: ABG 12/31/24 19:36 Specimen Type ESTRELLA Sample Site Not entered VBG pH 7.49 H VBG pO2 22 L VBG HCO3 24 VBG Total CO2 25 VBG O2 Sat (Calc) 43 L VBG Base Excess 0 POC Mix VBG pCO2 Pt Tmp 30.7 L O2 Delivery Device Room Air Critical Care Time Critical Care Time: Yes Critical care time (excluding procedures): 30-74 minutes, Discussing w/Patient &/or Family/Engineering And Scientific Programmer, Arranging Admission or Transfer, Performing Direct Patient Care at Bedside and - (35 minutes) Discharge Plan Triage Chief Complaint: Hyperglycemia ED Provider: Poli Barfield Dx/Rx/DC Orders Clinical Impression: Cyclic vomiting syndrome, History of diabetes mellitus, Diabetic ketoacidosis Prescriptions: No Action Linzess 145 mcg capsule 145 mcg PO QAM Qty: 30 2RF insulin glargine [Lantus Solostar U-100 Insulin] 100 unit/mL (3 mL) insulin pen 20 unit SUBCUT BID Patient Comments: PT HAS BEEN TAKING 35-40 UNITS TWICE DAILY albuterol sulfate 90 mcg/actuation HFA aerosol inhaler 2 puff INHALATION Q4H PRN (Reason: shortness of breath or wheezing) Trulicity 4.5 mg/0.5 mL pen injector 4.5 mg subcut SA Primary Care Provider: Aym Solorzano Referrals: Amy Solorzano, LASER PRINT OPERATOR-C [Primary Care Provider] - Print Language: Uruguayan Disposition Disposition: Acute Care Hospital [facility] What to do if you have Problems For any increased pain, shortness of breath, bleeding, nausea or vomiting, chestpain, or any unexpected problems, contact your Primary Care Provider. Call [facility] ([phone]) or report to the closest Emergency Room. Call 911 if necessary. 12/31/24 7950 <Electronically signed by Poli Farah> Cosigner Signature (if applicable): CC: BROOKLYN LASER PRINT OPERATOR-C Amy Solorzano ~ Signed [facility] Work Phone: 1(819) 734-277806-22-2025 Discharge summary Author Poli Barfield [facility] Note Date/Time December 31, 2024 11:0 7pm [facility] Medical Records Department [address] [place] [address] Emergency Department Summary 12/31/24 MR#: [id number] Acct: [id number] Name: GIVENSGHISLAINE Rep #:[id number] : 1990 34 From: Poli Farah PCP: Amy Solorzano Sara, LASER PRINT OPERATOR-C Statu s:REG ER Location: ED HPI History of Present Illness Chief Complaint: Hyperglycemia Informant: patient Narrative Narrative: Returns to ED after signout remained in the ICU this morning. She was admitted by myself yesterday for DKA as she was taken off her Trulicity a month ago secondary to admission for stercoral colitis. She reported no marijuana use forover a month however had a positive test yesterday. She states she had anxiety attack this morning therefore left. She is still on the insulin pump was given her Lantus of 25 units. She went home's labs she states she woke up she vomitedmultiple times again. States abdominal cramping similarly previously. She states she has been checking her glucoses been continuing to climb up. No cough. No urinary symptoms. Prior similar symptoms: Yes PFSH [facility] Medical History (Updated 12/31/24 @ 23:[address] Poli Barfield DO) Type 2 diabetes mellitus with peripheral neuropathy Diabetes GERD (gastroesophageal reflux disease) Wears glasses History of MRSA infection Borderline personality disorder Alcohol use Insulin dependent diabetes mellitus Dietary restriction Heartburn Smoker Shortness of breath on exertion Leg cramps Neuropathy, diabetic Elevated serum creatinine Failure of [...] / Time No Known Allergies Allergy Verified 12/31/24 18:33 Family History Other Bleeding disorder Cancer Diabetes [...] or dyspnea on exertion Gastrointestinal Gastrointestinal: Reports abdominal pain, nausea and vomiting; Denies diarrhea Genitourinary Genitourinary ED: Denies dysuria, hematuria or urinary frequency Musculoskeletal Musculoskeletal: Denies back pain, extremity pain or neck pain Integumentary Denies rash or wounds Neurologic Neurologic: Denies headache(s), paresthesias or weakness EXAM Physical Exam Const Vital Signs: 12/31/24 18:33 12/31/24 19:33 12/31/24 19:37 Temperature 97.6 F L Temperature Source Temporal Pulse Rate 96 84 Respiratory Rate 16 20 H Respiratory Effort Normal Non-Labored Respiratory Pattern Tachypnea Blood Pressure 153/128 H 120/105 H Blood Pressure Mean 136 110 Pulse Ox 100 100 Oxygen Delivery Method Room Air Room Air 12/31/24 20:00 12/31/24 21:00 12/31/24 22:00 Temperature Temperature Source Pulse Rate 79 94 91 Respiratory Rate 22 H 23 H 20 H Respiratory Effort Respiratory Pattern Blood Pressure 151/90 H 146/89 H 143/85 H Blood Pressure Mean 110 108 104 Pulse Ox 100 97 97 Oxygen Delivery Method Room Air Room Air Room Air Positive well nourished and well developed Constitutional Narrative: Tearful holding emesis bag. General Appearance ED: well developed HEENT Reports [...] inspection, nondistended, normoactive bowel sounds GI Narrative: Mild generalized tenderness without guarding or rebound. Palpation: Negative for guarding or rebound tenderness present Extremity normal to inspection General Extremety ED: Negative for edema or tenderness General Extremity: Negative for edema Neuro oriented x3 and no sensory deficits noted Sensorium / Orientation: awake and alert Skin no rashes or lesions noted and no wounds MDM MDM MDM Narrative Medical decision making narrative: Interventions / MDM: Differential diagnosis: Diabetic ketoacidosis, nausea vomiting, cyclic vomiting syndrome Diagnosis considered but do not suspect: N/A My EKG interpretation: N/A Imaging independently reviewed and interpreted by myself: N/A External documents reviewed: Discharge summary with patient signed AMA while being bridged with Lantus and insulin drip. Test considered but not ordered:N/A ED course: Tearful holding emesis bag. States glucose has been rising with nausea and vomiting. DKA labs were ordered 2 L of fluid ordered. Will order cyclic vomiting medication of Ativan Pepcid and Zofran. VBG pH is 7.49 CO2 30 O2 21. 2135: Patient required edition no cyclic vomiting medications Compazine [place] fluids. She is sleeping currently. She had a glucose of 1 6 in the lab however did have beta hydroxybutyrate elevated at 0.6 her gap was normal high at15. She had 2 L of fluid ordered. Currently reevaluation she is sleeping. Repeat BMP is pending. Glucose 152 urine 100 leukocytes, 3+ bacteria. 2230: Repeat BMP gap down to 13. Did resend for repeat beta hydroxybutyrate. However patient is only on long-acting insulin. I discussed with hospitalist Dr. Teresa, discussed patient's history and presentation yesterday. We do agree she could be euglycemic diabetic ketoacidosis he recommends restarting insulin drip along with D5 half-normal saline with 20 mEq of potassium to run at150. We will admit her to ICU for further management. Later patient reporting some for pain for cramping shows nonsurgical abdomen. Levsin ordered. Re-evaluation: stable Disposition discussed with patient/family/significant other: Patient Case discussed with consulting clinician: Hospitalist This note was generated with [employer] software. It may contain incorrectwords, spelling, and punctuation that were not noted in checking the note beforesigning. Lab Data Attestation: I reviewed the patient's lab results. Labs: Laboratory Results - last 24 hr 12/31/24 12/31/24 12/31/24 18:39 19:30 19:43 WBC 9.9 RBC 4.53 Hgb 12.4 Hct 38.0 MCV 83.9 MCH 27.4 MCHC 32.6 RDW Std Deviation 43.4 RDW Coeff of John 14.3 Plt Count 400 MPV 9.5 Immature Gran % (Auto) 0.700 Neut % (Auto) 64.4 Lymph % (Auto) 27.7 Braxton % (Auto) 6.4 Eos % (Auto) 0.3 Baso % (Auto) 0.5 Absolute Neuts (auto) 6.4 Absolute Lymphs (auto) 2.74 Nucleated RBC % 0 Sodium 140 Potassium 3.8 Chloride 105 Carbon Dioxide 20.4 L Anion Gap 15 BUN 7 Creatinine 0.99 Estim Creat Clear Calc 101.44 Est GFR (MDRD) Non-Af 77 BUN/Creatinine Ratio 7.1 L Glucose 160 H Calcium 9.1 b-Hydroxybutyric mmol/L 0.6 H Urine Color Yellow Urine Clarity Cloudy Urine pH 6.0 Ur Specific Zephyr 1.020 Urine Protein 30 H Urine Glucose (UA) Normal Urine Ketones 5 H Urine Occult Blood 25 H Urine Nitrite Negative Urine Bilirubin Negative Urine Urobilinogen Normal Ur Leukocyte Esterase 100 H Urine RBC 0 SEEN Urine WBC 0-5 SEEN Ur Squamous Epith Cells 0-5 SEEN Urine Bacteria 3+ Urine Mucus 0 SEEN POC Glucose 140 H 152 H 12/31/24 12/31/24 21:20 21:35 WBC RBC Hgb Hct MCV MCH MCHC RDW Std Deviation RDW Coeff of John Plt Count MPV Immature Gran % (Auto) Neut % (Auto) Lymph % (Auto) Braxton % (Auto) Eos % (Auto) Baso % (Auto) Absolute Neuts (auto) Absolute Lymphs (auto) Nucleated RBC % Sodium 139 Potassium 3.7 Chloride 108 Carbon Dioxide 18.2 L Anion Gap 13 BUN 7 Creatinine 0.85 Estim Creat Clear Calc 118.14 Est GFR (MDRD) Non-Af 93 BUN/Creatinine Ratio 8.0 L Glucose 177 H Calcium 8.2 b-Hydroxybutyric mmol/L Urine Color Urine Clarity Urine pH Ur Specific Zephyr Urine Protein Urine Glucose (UA) Urine Ketones Urine Occult Blood Urine Nitrite Urine Bilirubin Urine Urobilinogen Ur Leukocyte Esterase Urine RBC Urine WBC Ur Squamous Epith Cells Urine Bacteria Urine Mucus POC Glucose 169 H ABG Data ABG results: ABG 12/31/24 19:36 Specimen Type ESTRELLA Sample Site Not entered VBG pH 7.49 H VBG pO2 22 L VBG HCO3 24 VBG Total CO2 25 VBG O2 Sat (Calc) 43 L VBG Base Excess 0 POC Mix VBG pCO2 Pt Tmp 30.7 L O2 Delivery Device Room Air Critical Care Time Critical Care Time: Yes Critical care time (excluding procedures): 30-74 minutes, Discussing w/Patient &/or Family/Engineering And Scientific Programmer, Arranging Admission or Transfer, Performing Direct Patient Care at Bedside and - (35 minutes) Discharge Plan Triage Chief Complaint: Hyperglycemia ED Provider: Poli Barfield Dx/Rx/DC Orders Clinical Impression: Cyclic vomiting syndrome, History of diabetes mellitus, Diabetic ketoacidosis Prescriptions: No Action Linzess 145 mcg capsule 145 mcg PO QAM Qty: 30 2RF insulin glargine [Lantus Solostar U-100 Insulin] 100 unit/mL (3 mL) insulin pen 20 unit SUBCUT BID Patient Comments: PT HAS BEEN TAKING 35-40 UNITS TWICE DAILY albuterol sulfate 90 mcg/actuation HFA aerosol inhaler 2 puff INHALATION Q4H PRN (Reason: shortness of breath or wheezing) Trulicity 4.5 mg/0.5 mL pen injector 4.5 mg subcut SA Primary Care Provider: Amy Solorzano Referrals: Amy Solorzano, LASER PRINT OPERATOR-C [Primary Care Provider] - Print Language: Uruguayan Disposition Disposition: Acute Care Hospital [facility] What to do if you have Problems For any increased pain, shortness of breath, bleeding, nausea or vomiting, chestpain, or any unexpected problems, contact your Primary Care Provider. Call [facility] ([phone]) or report to the closest Emergency Room. Call 911 if necessary. 12/31/242306 <Electronically signed by Poli Farah> Cosigner Signature (if applicable): CC: BROOKLYN LASER PRINT OPERATOR-C Amy Solorzano ~ Signed [facility] Work Phone: 1(667) 955-640706-22-2025 [facility]06-22-2025 Discharge summary Author Poli Barfield [facility] Note Date/Time December 30, 2024 10:3 2pm [facility] Medical Records Department [address] [place] [address] Emergency Department Summary 12/30/24 MR#: [id number] Acct: [id number] Name: GHISLAINE GIVENS Rep #:[id number] : 1990 34 From: Poli Farah PCP: Amy Solorzano, BROOKLYN, LASER PRINT OPERATOR-C Statu s:ADM IN Location: ICU CVICU20 3-1 [...] clinician: Hospitalist This note was generated with [employer] dictation software. It may contain incorrectwords, spelling, [...] (Auto) 70.7 H Lymph % (Auto) 23.6 Braxton % (Auto) 4.8 Eos % (Auto) 0.0 [...] Sl. Cloudy Urine pH 5.0 Ur Specific Zephyr 1.025 Urine Protein 30 H Urine Glucose [...] (excluding procedures): 30-74 minutes, Discussing w/Patient &/or Family/Engineering And Scientific Programmer, Arranging Admission or Transfer, Performing Direct Patient Care at Bedside and - (35 minutes) Discharge Plan Dx/Rx/DC Orders Clinical Impression: Diabetic ketoacidosis, Cyclic vomiting syndrome, History of diabetes mellitus, NAI (acute kidney injury) Disposition Disposition: [facility] Discharge Date/Time: 12/30/24 13:08 What to do if you have Problems For any increased pain, shortness of breath, bleeding, nausea or vomiting, chestpain, or any unexpected problems, contact your Primary Care Provider. Call [facility] ([phone]) or report to the closest Emergency Room. Call 911 if necessary. 12/30/242231 <Electronically signed by Poli Farah> Cosigner Signature (if applicable): CC: BROOKLYN Solorzano ~ Signed [facility] Work Phone: 1(518) 444-498906-21-2025 Discharge summary [facility] Medical Records Department [address] [place] [address] Emergency Department Summary 12/30/24 MR#: [id number] Acct: [id number] Name: GHISLAINE GIVENS Rep #:[id number] : 1990 34 From: Poli Farah PCP: BROOKLYN Warren, LASER PRINT OPERATORKaykay Statu s:ADM IN Location: ICU CVICU20 3-1 [...] clinician: Hospitalist This note was generated with Dragon dictation software. It may contain incorrectwords, spelling, [...] (Auto) 70.7 H Lymph % (Auto) 23.6 Braxton % (Auto) 4.8 Eos % (Auto) 0.0 [...] Sl. Cloudy Urine pH 5.0 Ur Specific Zephyr 1.025 Urine Protein 30 H Urine Glucose [...] kidney injury) Disposition Disposition: Acute Care Hospital [facility] Discharge Date/Time: 12/30/24 13:08 What to do if you have Problems For any increased pain, shortness of breath, bleeding, nausea or vomiting, chestpain, or any unexpected problems, contact your Primary Care Provider. Call [facility] ([phone]) or report tothe closest Emergency Room. Call 911 if necessary. 12/30/242231 Cosigner Signature (if applicable): CC: BROOKLYN LASER PRINT OPERATORKaykay Solorzano ~ Signed [facility]06-21-2025 History and physical note Author David Bain [facility] Note Date/Time December 30, 2024 1:09 pm [facility] Medical Records Department [address] [place] [address] H&P Exam - Hospitalist 12/30/24 1248 MR#: [id number] Acct: [id number] Name: GHISLAINE GIVENS Rep #:[id number] : 1990 34 From: David Gupta PCP: BROOKLYN Warren, LASER PRINT OPERATOR-C Statu s:ADM IN Location: ICU CVICU20 3-1 [...] DKA therefore admitted. Vitals in normal limit. [facility] Medical History Diabetes GERD (gastroesophageal reflux disease) [...] (Auto) 70.7 H, Lymph % (Auto) 23.6, Braxton % (Auto) 4.8, Eos % (Auto) 0.0, [...] Sl. Cloudy, Urine pH 5.0, Ur Specific Zephyr 1.025, Urine Protein 30 H, Urine Glucose [...] for 2 weeks. Weight loss counseling done. Chair Inspector And Leveler consult DVT prophylaxis, low risk: Early ambulation encouraged Living will/advanced directive/end of life care: Patient does not have living will or advanced directive. She does not have the [facility] power of computer assistant for health. After discussion of benefits/risks procedures involved with full code,DNR CC arrest and DNR CC, the patient opted for full code. Patient does want artificial life support including intubation, tube feed, ventilator and/chest compression, central venous catheter, vasopressor and DC shock if needed Total time spent in [id number] encounter in discussion of advanced directive 17 minutes. Charges/Coding Visit Charges Inpatient E&M: 53806 Init Hosp L3 Procedures Hospitalists Procedures: 52589 Advncd Care Plan 30 Min 12/30/24 1309 <Electronically signed by David Bain MD> Cosigner Signature (if applicable): CC: VSC LASER PRINT OPERATOR-C Amy Solorzano; Dr. David Bain MD~ Signed [facility] Work Phone: 1(930) 399-559206-21-2025 History and physical note [facility] Medical Records Department [address] [place] [address] H&P Exam - Hospitalist 12/30/24 1248 MR#: [id number] Acct: [id number] Name: GHISLAINE GIVENS Rep #:[id number] : 1990 34 From: David Gupta PCP: Amy Solorzano Sara, LASER PRINT OPERATOR-C Statu s:ADM IN Location: ICU CVICU20 3-1 HPI - General General Date of Admission: 12/30/24 Date of Service: 12/30/24 Chief Complaint: Patient has been vomiting, nausea and diffuse abdominal pain intermittently going on for 1 month but persistent for last 2 days HPI Brielle GIVENS, is a 34 F who was [...] DKA therefore admitted. Vitals in normal limit. [facility] Medical History Diabetes GERD (gastroesophageal reflux disease) [...] (Auto) 70.7 H, Lymph % (Auto) 23.6, Braxton % (Auto) 4.8, Eos % (Auto) 0.0, [...] Sl. Cloudy, Urine pH 5.0, Ur Specific Zephyr 1.025, Urine Protein 30 H, Urine Glucose [...] for 2 weeks. Weight loss counseling done. Chair Inspector And Leveler consult DVT prophylaxis, low risk: Early ambulation encouraged Living will/advanced directive/end of life care: Patient does not have living will or advanced directive. She does not have the year power of computer assistant for health. After discussion of benefits/risks procedures involved with full code,DNR CC arrest and DNR CC, the patient opted for full code. Patient does want artificial life support including intubation, tube feed, ventilator and/chest compression, central venous catheter, vasopressor and DC shock if needed Total time spent in [id number]-na-oiop encounter in discussion of advanced directive 17 minutes. Charges/Coding Visit Charges Inpatient E&M: 49404 Init Hosp L3 Procedures Hospitalists Procedures: 49228 Advncd Care Plan 30 Min 12/30/24 1309 Cosigner Signature (if applicable): CC: BROOKLYN LASER PRINT OPERATOR-C Amy Solorzano; Dr. David Bain MD~ Signed [facility]06-16-2025 Radiology Diagnostic study note [facility] Imaging Services [address] [place] [address] Abdomen Limited MR#: [id number] Acct: [id number] Name: GHISLAINE GIVENS Rep #: [id number] : 1990 F 34 From: Yamila Mcginnis MD PCP: BROOKLYN Warren, LASER PRINT OPERATOR-C Status: REG CLI Study:Abdomen Limited Date of Exam: 12/10 01/03 Exam# [id number] Ordering Dr: Nayana Peter PROCEDURE: ABDOMEN LIMITED [...] of cholelithiasis or acute cholecystitis. Reading Location: RADCHAMSUDDIN1 CC: BROOKLYN LASER PRINT OPERATOR-C Amy Solorzano; MIGUEL A South ~ Grade Foreman: Signed [facility]05-20-2025 Discharge summary [facility] Medical Records Department [address] [place] [address] Discharge Summary 11/28/24 1203 MR#: [id number] Acct: [id number] Name: GHISLAINE GIVENS Rep #:[id number] : 1990 34 From: Gale Lr DO PCP: BROOKLYN Warren, LASER PRINT OPERATORPanC Statu s:ADM IN Location: [place] [address]-1 Providers Date of Admission: 11/25/24 Date of Discharge: 11/28/24 Primary Care Physician: BROOKLYN Warren, LASER PRINT OPERATORPanC Consultations 11/25/24 15:14 Consult: General Surgery Routine [...] who presented to the emergency department at [facility] on 11/25/2024 with a chief complaint [...] fatty infiltration. The patient was admitted to themedical floor with stercoral proctocolitis and overflow diarrheain [...] (Auto) 49.8, Lymph % (Auto) 43.0 H, Braxton % (Auto) 5.3, Eos % (Auto) 0.5, [...] as compared to prior study. Reading Location: [place] [address] D/C Instructions Discharge Diet: 1800 Calorie Control [...] Gale Lr Primary Care Provider: Amy Solorzano Sara Consulting Providers: Annalise Welch; Brenda Rao Instructions [...] tomorrow to set up appointment) Amy Solorzano, LASER PRINT OPERATOR-C [Primary Care Provider] - In 1 Week Disposition Disposition (needs filled in before D/C Order can be placed): Home, Self Care Charges/Coding Visit Charges Inpatient E&M: 69805 Disch Hosp >30min 11/28/24 1231 Cosigner Signature (if applicable): CC: BROOKLYN Solorzano; Dr. Gale Lr, ~ Signed [facility]05-20-20[facility] Progress note Author Clare Loo [facility] Note Date/Time November 28, 2024 8:41a m [facility] Medical Records Department [address] [place] [address] Progress Note - Surgery 11/28/24 0757 MR#: [id number] Acct: [id number] Name: GHISLAINE GIVENS Rep #:[id number] : 1990 34 From: Clare GRADY PA-C PCP: BROOKLYN Warren, LASER PRINT OPERATOR-C Statu s:ADM IN Location: MS3 UT563-2 Subjective Subjective Patient was walking the hallway [...] (Auto) 49.8, Lymph % (Auto) 43.0 H, Braxton % (Auto) 5.3, Eos % (Auto) 0.5, [...] as compared to prior study. Reading Location: [facility] Physical Exam GI GI Narrative: Abdomen- [...] 1 week Charges/Coding Visit Charges Inpatient E&M: 63323 Subs Hosp L2 11/28/24 0841 <Electronically signed by Clare GRADY PA-C> Cosigner Signature (if applicable): CC: ~ Signed [facility] Work Phone: 1(388) 990-828605-20-2025 Progress note [facility] Medical Records Department [address] [place] [address] Progress Note - Surgery 11/28/24 1523 MR#: [id number] Acct: [id number] Name: GHISLAINE GIVENS Rep #:[id number] : 1990 34 From: Clare GRADY PA-C PCP: BROOKLYN Warren, LASER PRINT OPERATOR-C Statu s:ADM IN Location: MS3 AM304-6 Subjective Subjective Patient was walking the hallway [...] (Auto) 49.8, Lymph % (Auto) 43.0 H, Braxton % (Auto) 5.3, Eos % (Auto) 0.5, [...] as compared to prior study. Reading Location: [facility] Physical Exam GI GI Narrative: Abdomen- [...] 1 week Charges/Coding Visit Charges Inpatient E&M: 26156 Subs Hosp L2 11/28/24 0841 Cosigner Signature (if applicable): CC: ~ Signed [facility]05-19-2025 Progress note Author Gale Lr [facility] Note Date/Time November 27, 2024 3:45p m [facility] Medical Records Department [address] [place] [address] Progress Note - Hospitalist 11/27/24 0759 MR#: [id number] Acct: [id number] Name: GHISLAINE GIVENS Rep #:[id number] : 1990 34 From: Gale Lr DO PCP: Amy Solorzano, Sara, LASER PRINT OPERATOR-C Statu s:ADM IN Location: MS3 UY080-4 Reason for Visit Reason for Visit: Abdominal [...] (Auto) 75.9 H, Lymph % (Auto) 18.1L, Braxton % (Auto) 5.2, Eos % (Auto) 0.0, [...] of the rectum. Reading Location: [facility] Physical Exam Const alert, oriented x3 [...] cessation discussed with patient Acute proctitis/colitis - Mobile to be stercoral colitis from severe constipation [...] Full code Charges/Coding Visit Charges Inpatient E&M: 89552 Subs Hosp L2 11/27/24 1256 <Electronically signed by Gale Lr DO> Luis Eduardo Signature (if applicable): CC: ~ Signed [facility] Work Phone: 1(106) 987-891905-19-2025 Progress note Author Clare Loo [facility] Note Date/Time November 27, 2024 2:35p m [facility] Medical Records Department [address] [place] [address] [place] [address] Progress Note - Surgery 11/27/24 0845 MR#: [id number] Acct: [id number] Name: GHISLAINE GIVENS Rep #:[id number] : 1990 34 From: Clare GRADY PA-C PCP: BROOKLYN Warren, LASER PRINT OPERATOR-C Statu s:ADM IN Location: MS3 MH980-3 Subjective Subjective Patient evaluated rolling restlessly in [...] (Auto) 75.9 H, Lymph % (Auto) 18.1L, Braxton % (Auto) 5.2, Eos % (Auto) 0.0, [...] this patient Charges/Coding Visit Charges Inpatient E&M: 44519 Subs Hosp L2 11/27/24 0853 <Electronically signed [...] Cosigner Signature (if applicable): cc: ~* Signed [facility] Work Phone: 1(141) 761-399105-19-2025 Progress note [facility] Medical Records Department [address] [place] [address] Progress Note - Hospitalist 11/27/24 7586 MR#: [id number] Acct: [id number] Name: GHISLAINE GIVENS Rep #:[id number] : 1990 34 From: Gale Lr DO PCP: Amy Solorzano [facility], LASER PRINT OPERATOR-C Statu s:ADM IN Location: MS3 EG497-9 Reason for Visit Reason for Visit: Abdominal [...] (Auto) 75.9 H, Lymph % (Auto) 18.1L, Braxton % (Auto) 5.2, Eos % (Auto) 0.0, [...] of the rectum. Reading Location: [facility] Physical Exam Const alert, oriented x3 [...] cessation discussed with patient Acute proctitis/colitis - Mobile to be stercoral colitis from severe constipation [...] Full code Charges/Coding Visit Charges Inpatient E&M: 17164 Subs Hosp L2 11/27/24 1355 Cosigner Signature (if applicable): CC: ~ Signed [facility]05-19-2025 Progress note [facility] Medical Records Department [address] [place] [address] Progress Note - Surgery 11/27/24 0845 MR#: [id number] Acct: [id number] Name: GHISLAINE GIVENS Rep #:[id number] : 1990 34 From: Clare SIMONC PCP: BROOKLYN Warren, LASER PRINT OPERATOR-C Statu s:ADM IN Location: MS3 VN380-9 Subjective Subjective Patient evaluated rolling restlessly in [...] (Auto) 75.9 H, Lymph % (Auto) 18.1L, Braxton % (Auto) 5.2, Eos % (Auto) 0.0, [...] this patient Charges/Coding Visit Charges Inpatient E&M: 73112 Subs Hosp L2 11/27/24 0853 Cosigner Signature [...] Cosigner Signature (if applicable): cc: ~* Signed [facility]05-19-2025 Radiology Diagnostic study note [facility] Imaging Services [address] [place] [address] [id number] Abdomen/Pelvis WITH Contrast MR#: [id number] Acct: [id number] Name: GHISLAINE GIVENS Rep #: [id number] : 1990 F 34 From: Fortino Sadler MD PCP: Amy Solorzano Sara, LASER PRINT OPERATOR-C Status: ADM IN Study:Abdomen/Pelvis WITH Contrast Date of Ex am: 11/27/24 Exam# [id number] Ordering Dr: Clare Loo PA-C PROCEDURE: ABDOMEN/PELVIS [...] as compared to prior study. Reading Location: [place] [address] CC: ESCOBAR Loo; BROOKLYN Solorzano ~ Grade Foreman: Signed [facility]05-18-2025 Progress note Author Brenda Rao [facility] Note Date/Time November 26, 2024 9:20a m [facility] Medical Records Department [address] [place] [address] Progress Note 11/26/24 0909 MR#: [id number] Acct: [id number] Name: GHISLAINE GIVENS Rep #:[id number] : 1990 34 From: Brenda Rao MD PCP: Amy Solorzano, BROOKLYN, PATRICE Statu s:ADM IN Location: MS3 DK297-0 Subjective Subjective Patient seen and examined. She [...] 11/26/24 23:59 23:59 23:59 Intake Total 2049 / 2049 1050 / 1050 Balance 2049 1050 [...] 79.5 H, Lymph % (Auto) 11.4 L, Braxton % (Auto) 8.0, Eos % (Auto) 0.1, [...] Clarity Cloudy, Urine pH 6.0, Ur Specific Zephyr 1.025, Urine Protein 30 H, Urine Glucose [...] (Auto) 73.4 H, Lymph % (Auto) 19.4, Braxton % (Auto) 6.2, Eos % (Auto) 0.2, [...] consistent with constipation. Reading Location: [facility] Abdomen/Pelvis CT 11/25/24 11:32 IMPRESSION: 1. Fecal impaction with apparent wall thickening of the distal colon and rectumsuggesting proctitis and colitis. Clinical correlation is recommended. 2. Hepatomegaly with fatty infiltration. Reading Location: [facility] X-Ray 11/26/24 08:10 IMPRESSION: Constipation with suggestion of fecal impaction of the rectum. Reading Location: [facility] Physical Exam Const alert and oriented x3 [...] Full code Charges/Coding Visit Charges Inpatient E&M: 65876 Subs Hosp L2 11/26/24 0920 <Electronically signed by Brenda Rao MD> Brenda Rao MD Cosigner Signature (if applicable): CC: ~ Signed [facility] Work Phone: 1(488) 129-404305-18-2025 History and physical note Author Brenda [facility] Note Date/Time November 26, 2024 7:54a m [facility] Medical Records Department [address] [facility] [place] [address] H&P Exam - Hospitalist 11/25/24 1324 MR#: [id number] Acct: [id number] Name: GHISLAINE GIVENS Rep #:[id number] : 1990 34 From: Brenda Rao MD PCP: BROOKLYN Warren, LASER PRINT OPERATOR-C Statu s:ADM IN Location: [address] HPI - General General Date of [...] of severe constipation with likely overflow diarrhea. [facility] Medical History (Updated 11/25/24 @ 15:05 by [...] 79.5 H, Lymph % (Auto) 11.4 L, Braxton % (Auto) 8.0, Eos % (Auto) 0.1, [...] Clarity Cloudy, Urine pH 6.0, Ur Specific Zephyr 1.025, Urine Protein 30 H, Urine Glucose [...] consistent with constipation. Reading Location: [facility] Abdomen/Pelvis CT 11/25/24 11:32 IMPRESSION: 1. Fecal impaction with apparent wall thickening of the distal colon and rectumsuggesting proctitis and colitis. Clinical correlation is recommended. 2. Hepatomegaly with fatty infiltration. Reading Location: [facility] Assessment & Plan Assessment/Plan (1) Colitis: (2) Acute proctitis: (3) Fecal impaction: PLAN: Plan # Stercoral proctocolitis with overflow diarrhea in the setting of severe constipation with fecal impaction * Admit to [facility]. Admitted with a complaint of abdominal [...] Full code Charges/Coding Visit Charges Inpatient E&M: 53685 Init Hosp L2 11/26/24 8534 <Electronically signed by Brenda Rao MD> Cosigner Signature (if applicable): CC: BROOKLYN LASER PRINT OPERATOR-C Amy Solorzano; Dr. Brenda Rao MD~ Signed [facility] Work Phone: 1(440) 125-994305-18-2025 Consult note Author Annalise Welch [facility] Note Date/Time November 26, 2024 7:47a m [facility] Medical Records Department [address] [place] [address] Consultation - Surgical 11/25/242050 MR#: [id number] Acct: [id number] Name: GHISLAINE GIVENS Rep #:[id number] : 1990 34 From: Annalise Welch MD PCP: BROOKLYN Warren, LASER PRINT OPERATOR-C Statu s:ADM IN Location: [facility] AH029-6 Assessment & Plan Assessment/Plan (1) Fecal impaction: (2) Acute proctitis: PLAN: Plan Discussed with patient would recommend additional enema to help soften the bowelof stool in the rectum. Along with additional ones after that. Continue IV Zosyn Discussed with patient plan to DC with laxatives. Annalise Welch M.D. Pager: [phone] [facility] [address] [place] [address], [facility], [address] [place] [address] Office: [phone] HPI Consult Data Date of Consult: 11/26/24 [...] and did have some results with it. [facility] Medical History (Updated 11/25/24 @ 15:05 by [...] 79.5 H, Lymph % (Auto) 11.4 L, Braxton % (Auto) 8.0, Eos % (Auto) 0.1, [...] Clarity Cloudy, Urine pH 6.0, Ur Specific Zephyr 1.025, Urine Protein 30 H, Urine Glucose [...] the colon consistent with constipation. Reading Location: [facility] Abdomen/Pelvis CT 11/25/24 11:32 IMPRESSION: 1. Fecal impaction with apparent wall thickening of the distal colon and rectumsuggesting proctitis and colitis. Clinical correlation is recommended. 2. Hepatomegaly with fatty infiltration. Reading Location: [facility] Charges/Coding Visit Charges Inpatient E&M: 38040 Init Hosp L3 11/26/24 0747 <Electronically signed by Annalise Welch MD> Cosigner Signature (if applicable): CC: BROOKLYN LASER PRINT OPERATORKaykay Solorzano~ Signed [facility] Work Phone: 1(358) 197-502405-18-2025 Progress note Author Annalise Welch [facility] Note Date/Time November 26, 2024 7:47a m [facility] Medical Records Department [address] [place] [address] Progress Note - Surgery 11/26/24740 MR#: [id number] Acct: [id number] Name: GHISLAINE GIVENS Rep #:[id number] : 1990 34 From: Annalise Welch MD PCP: BROOKLYN Warren, LASER PRINT OPERATOR-C Statu s:ADM IN Location: [facility] WF883-6 Subjective Subjective Patient states she did have [...] 79.5 H, Lymph % (Auto) 11.4 L, Braxton % (Auto) 8.0, Eos % (Auto) 0.1, [...] Clarity Cloudy, Urine pH 6.0, Ur Specific Zephyr 1.025, Urine Protein 30 H, Urine Glucose [...] (Auto) 73.4 H, Lymph % (Auto) 19.4, Braxton % (Auto) 6.2, Eos % (Auto) 0.2, [...] consistent with constipation. Reading Location: [facility] Abdomen/Pelvis CT 11/25/24 11:32 IMPRESSION: 1. Fecal impaction with apparent wall thickening of the distal colon and rectumsuggesting proctitis and colitis. Clinical correlation is recommended. 2. Hepatomegaly with fatty infiltration. Reading Location: [facility] Physical Exam Const oriented x3 and [...] improved from 27-17. Annalise Welch M.D. Pager: [phone] [facility] [address] [place] [address], [facility], [address] [place] [address] Office: [phone] Charges/Coding Multi Select Codes Visit Charges Visit Charges: 91643 Subs Hosp L2 11/26/24 0747 <Electronically signed by Annalise Welch MD> Cosigner Signature (if applicable): CC: ~ Signed [facility] Work Phone: 1(945) 870-418905-18-2025 Progress note [facility] Medical Records Department [address] [place] [address] Progress Note 11/26/24 0909 MR#: [id number] Acct: [id number] Name: GHISLAINE GIVENS Rep #:[id number] : 1990 34 From: Brenda Rao MD PCP: BROOKLYN Warren, LASER PRINT OPERATOR-C Statu s:ADM IN Location: MS3 WV240-0 Subjective Subjective Patient seen and examined. She [...] 79.5 H, Lymph % (Auto) 11.4 L, Braxton % (Auto) 8.0, Eos % (Auto) 0.1, [...] Clarity Cloudy, Urine pH 6.0, Ur Specific Zephyr 1.025, Urine Protein 30 H, Urine Glucose [...] (Auto) 73.4 H, Lymph % (Auto) 19.4, Braxton % (Auto) 6.2, Eos % (Auto) 0.2, [...] consistent with constipation. Reading Location: [facility] Abdomen/Pelvis CT 11/25/24 11:32 IMPRESSION: 1. Fecal impaction with apparent wall thickening of the distal colon and rectumsuggesting proctitisand colitis. Clinical correlation is recommended. 2. Hepatomegaly with fatty infiltration. Reading Location: [facility] KUB X-Ray 11/26/24 08:10 IMPRESSION: Constipation with suggestion of fecal impaction of the rectum. Reading Location: [facility] Physical Exam Const alert and oriented x3 [...] Full code Charges/Coding Visit Charges Inpatient E&M: 80108 Subs Hosp L2 11/26/24 0920 Brenda Rao MD Cosigner Signature (if applicable): CC: ~ Signed [facility]05-18-2025 Radiology Diagnostic study note [facility] Imaging Services [address] [place] [address] Abdomen Single View MR#: [id number] Acct: [id number] Name: GHISLAINE GIVENS Rep #: [id number] : 1990 F 34 From: Alicja Barfield MD PCP: BROOKLYN Warren, LASER PRINT OPERATOR-C Status: ADM IN Study:Abdomen Single View Date of Exam: 11/26/24 Exam# [id number] Ordering Dr: Annalise Welch MD EXAM: XR Abdomen, 1 View CLINICAL INDICATION: FECAL IMPACTION-RECTUM TECHNIQUE: Frontal supine view of the abdomen/pelvis. COMPARISON: No relevant prior studies available. FINDINGS: GASTROINTESTINAL TRACT: Constipation with suggestion of fecal impaction of the rectum. No dilation. BONES/JOINTS: Unremarkable. No acute fracture. RAD/Abdomen Single View IMPRESSION: Constipation with suggestion of fecal impaction of the rectum. Reading Location: [facility] CC: [facility] LASER PRINT OPERATOR-C Amy Solorzano; Dr. Annalise Welch MD ~ Grade Foreman: Signed [facility]05-18-2025 History and physical note [facility] Medical Records Department [address] [place] [address] H&P Exam - Hospitalist 11/25/24 1324 MR#: [id number] Acct: [id number] Name: GHISLAINE GIVENS Rep #:[id number] : 1990 34 From: Brenda Rao MD PCP: BROOKLYN Warren, LASER PRINT OPERATOR-C Statu s:ADM IN Location: MS3 WF362-7 HPI - General General Date of Admission: [...] of severe constipation with likely overflow diarrhea. [facility] Medical History (Updated 11/25/24 @ 15:05 by [...] 79.5 H, Lymph % (Auto) 11.4 L, Braxton % (Auto) 8.0, Eos % (Auto) 0.1, [...] Clarity Cloudy, Urine pH 6.0, Ur Specific Zephyr 1.025, Urine Protein 30 H, Urine Glucose [...] consistent with constipation. Reading Location: [facility] Abdomen/Pelvis CT 11/25/24 11:32 IMPRESSION: 1. Fecal impaction with apparent wall thickening of the distal colon and rectumsuggesting proctitisand colitis. Clinical correlation is recommended. 2. Hepatomegaly with fatty infiltration. Reading Location: [facility] Assessment & Plan Assessment/Plan (1) Colitis: (2) Acute proctitis: (3) Fecal impaction: PLAN: Plan # Stercoral proctocolitis with overflow diarrhea in the setting of severe constipation with fecal impaction * Admit to [facility]. Admitted with a complaint of abdominal [...] Full code Charges/Coding Visit Charges Inpatient E&M: 13476 Init Hosp L2 11/26/24 1114 Cosigner Signature (if applicable): CC: BROOKLYN LASER PRINT OPERATOR-C Amy Solorzano; Dr. Brenda Rao MD~ Signed [facility]05-18-2025 Consult note [facility] Medical Records Department [address] [place] [address] Consultation - Surgical 11/25/242050 MR#: [id number] Acct: [id number] Name: GHISLAINE GIVENS Rep #:[id number] : 1990 34 From: Annalise Welch MD PCP: BROOKLYN Warren, LASER PRINT OPERATOR-C Statu s:ADM IN Location: [place] [address]-1 Assessment & Plan Assessment/Plan (1) Fecal impaction: (2) Acute proctitis: PLAN: Plan Discussed with patient would recommend additional enema to help soften the bowelof stool in the rectum. Along with additional ones after that. Continue IV Zosyn Discussed with patient plan to DC with laxatives. Annalise Welch M.D. Pager: [phone] [facility] [address] [place] [address], [facility], [address] [place] [address] Office: [phone] HPI Consult Data Date of Consult: 11/26/24 [...] ER and did havesome results with it. [facility] Medical History (Updated 11/25/24 @ 15:05 by [...] 79.5 H, Lymph % (Auto) 11.4 L, Braxton % (Auto) 8.0, Eos % (Auto) 0.1, [...] Clarity Cloudy, Urine pH 6.0, Ur Specific Zephyr 1.025, Urine Protein 30 H, Urine Glucose [...] the colon consistent with constipation. Reading Location: [facility] Abdomen/Pelvis CT 11/25/24 11:32 IMPRESSION: 1. Fecal impaction with apparent wall thickening of the distal colon and rectumsuggesting proctitisand colitis. Clinical correlation is recommended. 2. Hepatomegaly with fatty infiltration. Reading Location: [facility] Charges/Coding Visit Charges Inpatient E&M: 29802 Init Hosp L3 11/26/24 0747 Cosigner Signature (if applicable): CC: BROOKLYN LASER PRINT OPERATOR-C Amy Solorzano~ Signed [facility]05-18-2025 Progress note [facility] Medical Records Department [address] [place] [address] Progress Note - Surgery 11/26/24 0741 MR#: [id number] Acct: [id number] Name: GHISLAINE GIVENS Rep #:[id number] : 1990 34 From: Annalise Welch MD PCP: BROOKLYN Warren, LASER PRINT OPERATOR-C Statu s:ADM IN Location: MS3 WV235-3 Subjective Subjective Patient states she did have [...] 79.5 H, Lymph % (Auto) 11.4 L, Braxton % (Auto) 8.0, Eos % (Auto) 0.1, [...] Clarity Cloudy, Urine pH 6.0, Ur Specific Zephyr 1.025, Urine Protein 30 H, Urine Glucose [...] (Auto) 73.4 H, Lymph % (Auto) 19.4, Braxton % (Auto) 6.2, Eos % (Auto) 0.2, [...] consistent with constipation. Reading Location: [facility] Abdomen/Pelvis CT 11/25/24 11:32 IMPRESSION: 1. Fecal impaction with apparent wall thickening of the distal colon and rectumsuggesting proctitisand colitis. Clinical correlation is recommended. 2. Hepatomegaly with fatty infiltration. Reading Location: [facility] Physical Exam Const oriented x3 and [...] improved from 27-17. Annalise Welch M.D. Pager: [phone] [facility] [address] [place] [address], [facility], [address] [place] [address] Office: [phone] Charges/Coding Multi Select Codes Visit Charges Visit Charges: 50004 Subs Hosp L2 11/26/24 5962 Cosigner Signature (if applicable): CC: ~ Signed [facility]05-17-2025 Discharge summary Author Drew Hinson [facility] Note Date/Time November 25, 2024 1:45p m [facility] Medical Records Department [address] [place] [address] Emergency Department Summary 11/25/24 MR#: [id number] Acct: [id number] Name: GHISLAINE GIVENS Rep #:[id number] : 1990 34 From: Drew Hinson MD PCP: Amy Solorzano Sara, LASER PRINT OPERATOR-C Statu s:REG ER Location: ED HPI HPI [...] this diagnosis. No exacerbating or alleviating factors. [facility] Medical History Wears glasses History of [...] 79.5 H Lymph % (Auto) 11.4 L Braxton % (Auto) 8.0 Eos % (Auto) 0.1 [...] Clarity Cloudy Urine pH 6.0 Ur Specific Zephyr 1.025 Urine Protein 30 H Urine Glucose [...] the colon consistent with constipation. Reading Location: [facility]HOME Abdomen/Pelvis CT 11/25/24 11:32 IMPRESSION: 1. Fecal impaction with apparent wall thickening of the distal colon and rectumsuggesting proctitis and colitis. Clinical correlation is recommended. 2. Hepatomegaly with fatty infiltration. Reading Location: [facility] Management Discussion w/another healthcare provider: Hospitalist (Dr. Rao) and Enterostomal Therapy Nurse(Dr. Welch) Discharge Plan Dx/Rx/DC Orders Clinical Impression: Fecal impaction, Acute proctitis, Colitis Disposition Disposition: [facility] What to do if you have Problems For any increased pain, shortness of breath, bleeding, nausea or vomiting, chestpain, or any unexpected problems, contact your Primary Care Provider. Call [facility] ([phone]) or report to the closest Emergency Room. Call 911 if necessary. 11/25/24 1345 <Electronically signed by Drew Hinson MD> Cosigner Signature (if applicable): CC: [facility] LASER PRINT OPERATOR-C Amy Solorzano ~ Signed [facility] Work Phone: 1(890) 469-332405-17-2025 Evaluation note* Diagnosis Onset Date Resolution Status Admit Date Abdominal pain acute November 25, 2024 1:38pm Acute proctitis acute November 25, 2024 1:38pm Colitis acute November 25, 2024 1:38pm Diabetes acute November 25, 2024 1:38pm Fecal impaction acute November 25, 2024 1:38pm Nausea & vomiting acute November 1:38pm [facility] Work Phone: 1([phone]) 985-652905-17-2025 Evaluation note* Diagnosis Onset Date Resolution Status [...] December 7:52am Constipation noneactive December 13 7:52am [facility] Work Phone: 1(906) 265-876605-17-2025 Evaluation note* Diagnosis Onset Date Resolution Status [...] 2024 12:28pm Diabetic ketoacidosis acute Dec 12:28pm [facility] Work Phone: [phone]) 414-868105-17-2025 Evaluation note* Diagnosis Onset Date Resolution Status [...] 2024 12:28pm Diabetic ketoacidosis acute Dec 12:28pm Cannabis abuse acute December 31, 2024 10:59pm Cyclic vomiting syndrome acute December 31, 2024 10:59pm Diabetic ketoacidosis acute Dec 10:59pm Medical non-compliance acute Ju 2024 10:59pm Obesity (BMI 30-39.9) acute Dec 10:59pm Type 2 diabetes mellitus wit h peripheral neuropathy acute December 31, 2024 10:59pm [facility] Work Phone: 1(729) 449-635905-17-2025 Evaluation note* Diagnosis Onset Date Resolution Status [...] 2024 12:28pm Diabetic ketoacidosis acute Dec 12:28pm Borderline personality disorder acute December 31, 2024 10:59pm Cannabis abuse acute December 31, 2024 10:59pm Cyclic vomiting syndrome acute December 31, 2024 10:59pm Depression with anxiety acute J une 2024 10:59pm Diabetic ketoacidosis acute Dec 10:59pm Medical non-compliance acute Ju ne 2024 10:59pm Obesity (BMI 30-39.9) acute Dec 10:59pm Type 2 diabetes mellitus wit h peripheral neuropathy acute December 31, 2024 10:59pm [facility] Work Phone: 1(262) 793-568305-17-2025 Discharge summary Author Drew Hinson [facility] Note Date/Time November 25, 2024 1:45p m [facility] Medical Records Department [address] [place] [address] Emergency Department Summary 11/25/24 MR#: [id number] Acct: [id number] Name: GHISLAINE GIVENS Rep #:[id number] : 1990 34 From: Drew Hinson MD PCP: BROOKLYN Warren, LASER PRINT OPERATOR-C Statu s:REG ER Location: ED HPI HPI [...] this diagnosis. No exacerbating or alleviating factors. [facility] Medical History Wears glasses History of [...] 79.5 H Lymph % (Auto) 11.4 L Braxton % (Auto) 8.0 Eos % (Auto) 0.1 [...] Clarity Cloudy Urine pH 6.0 Ur Specific Zephyr 1.025 Urine Protein 30 H Urine Glucose [...] the colon consistent with constipation. Reading Location: [facility] Abdomen/Pelvis CT 11/25/24 11:32 IMPRESSION: 1. Fecal impaction with apparent wall thickening of the distal colon and rectumsuggesting proctitis and colitis. Clinical correlation is recommended. 2. Hepatomegaly with fatty infiltration. Reading Location: [facility] Management Discussion w/another healthcare provider: Hospitalist (Dr. Rao) and Enterostomal Therapy Nurse(Dr. Welch) Discharge Plan Dx/Rx/DC Orders Clinical Impression: Fecal impaction, Acute proctitis, Colitis Disposition Disposition: Acute Care Hospital [facility] What to do if you have Problems For any increased pain, shortness of breath, bleeding, nausea or vomiting, chestpain, or any unexpected problems, contact your Primary Care Provider. Call [facility] ([phone]) or report to the closest Emergency Room. Call 911 if necessary. 11/25/24 1345 <Electronically signed by Drew Hinson MD> Cosigner Signature (if applicable): CC: BROOKLYN LASER PRINT OPERATORKaykay Solorzano ~ Signed [facility] Work Phone: 1(340) 843-209205-17-2025 Discharge summary [facility] Medical Records Department [address] [place] [address] Emergency Department Summary 11/25/24 MR#: [id number] Acct: [id number] Name: GHISLAINE GIVENS Rep #:[id number] : 1990 34 From: Drew Hinson MD PCP: BROOKLYN Warren, LASER PRINT OPERATORKaykay Statu s:REG ER Location: ED HPI HPI [...] confirm this diagnosis. Noexacerbating or alleviating factors. [facility] Medical History Wears glasses History of [...] 79.5 H Lymph % (Auto) 11.4 L Braxton % (Auto) 8.0 Eos % (Auto) 0.1 [...] Clarity Cloudy Urine pH 6.0 Ur Specific Zephyr 1.025 Urine Protein 30 H Urine Glucose [...] the colon consistent with constipation. Reading Location: [facility] Abdomen/Pelvis CT 11/25/24 11:32 IMPRESSION: 1. Fecal impaction with apparent wall thickening of the distal colon and rectumsuggesting proctitisand colitis. Clinical correlation is recommended. 2. Hepatomegaly with fatty infiltration. Reading Location: [facility] Management Discussion w/another healthcare provider: Hospitalist (Dr. Rao) and Enterostomal Therapy Nurse(Dr. Welch) Discharge Plan Dx/Rx/DC Orders Clinical Impression: Fecal impaction, Acute proctitis, Colitis Disposition Disposition: Acute Care Hospital [facility] What to do if you have Problems For any increased pain, shortness of breath, bleeding, nausea or vomiting, chestpain, or any unexpected problems, contact your Primary Care Provider. Call [facility] ([phone]) or report tothe closest Emergency Room. Call 911 if necessary. 11/25/24 1345 Cosigner Signature (if applicable): CC: BROOKLYN LASER PRINT OPERATOR-C Amy Solorzano ~ Signed [facility]05-17-2025 Radiology Diagnostic study note [facility] Imaging Services [address] [place], [place] [address] Abdomen/Pelvis W IV Cont ONLY MR#: [id number] Acct: [id number] Name: GHISLAINE GIVENS Rep #: [id number] : 1990 F 34 From: Alicja Barfield MD PCP: BROOKLYN Warren, LASER PRINT OPERATOR-C Status: REG ER Study:Abdomen/Pelvis W IV Cont ONLY Date of E xam: 11/25/24 Exam# [id number] Ordering Dr: Drew Hinson MD EXAM: CT [...] 2. Hepatomegaly with fatty infiltration. Reading Location: [facility] CC: [facility] LASER PRINT OPERATOR-C Amy Solorzano; Dr. Drew Hinson MD ~ Grade Foreman: Signed [facility]05-17-2025 Radiology Diagnostic study note [facility] Imaging Services [facility] [place] [address] Acute Abdomen Inc Chest MR#: [id number] Acct: [id number] Name: GHISLAINE GIVENS Rep #: [id number] : 1990 F 34 From: Alicja Barfield MD PCP: Amy Solorzano [facility], LASER PRINT OPERATOR-C Status: REG ER Study:Acute Abdomen Inc Chest Date of Exam: 11/25/24 Exam# [id number] Ordering Dr: Drew Hinson MD EXAM: XR [...] the colon consistent with constipation. Reading Location: [facility] CC: [facility] LASER PRINT OPERATOR-C Amy Solorzano; Dr. Drew Hinson MD ~ Grade Foreman: Signed [facility]12-23-2024 NoteHNO ID: [id number] Author: IRAIS HANNA PA Service: ? Author Type: Physician Contact Center Agent Type: Progress Notes Filed: 07/03/2024 13:13 Note Text: This note was created using [employer]. Subjective Ghislaine Givens is a 34 year [...] treatment plan were d (more content not included)...[facility]12-23-2024 History of Present illness Narrative* Irais Hanna PA - 07/03/2024 1:11 PM EST This note was created using [employer]. Subjective Ghisaline Givens is a 34 year old female. [...] evaluation. MIGUEL A Goldman documented [facility]12-[facility] History of Present illness Narrative* Luis Mayes [...] PATIENT PRESENTS WITH AN IMPLANTABLE OR ATTACHED FUR DYER: No RADIOLOGY DEPARTMENT: General X-ray: Exam(s) Completed: Chest X-Ray PERIPHERAL IV DATA: Not applicable SIGNED BY: RT Los(R) July 03, 2024 12:58 PM documented in this encounterAshtabula [facility]12-23-2024 NoteHNO ID: [id number] Author: LUIS MAYES RT(Reji) Service: Radiology Author [...] PATIENT PRESENTS WITH AN IMPLANTABLE OR ATTACHED FUR DYER: No RADIOLOGY DEPARTMENT: General X-ray: Exam(s) Completed: Chest X-Ray PERIPHERAL IV DATA: Not applicable SIGNED BY: RT Los(R) July 03, 2024 12:58 [facility]12-16-2024 NoteHNO ID: [id number] Author: FRANTZ AREVALO PA-C Service: ? Author Type: Physician Contact Center Agent Type: Progress Notes Filed: 06/26/2024 11:03 Note Text: This note was created using [employer]. Subjective Ghislaine Givens is a 34 year [...] - ICD9: 493.90, ICD10: J45.20 MIGUEL A [facility]12-16-2024 History of Present illness Narrative* Frantz Arevalo PA-C - 06/26/2024 10:55 AM EST This note was created using [employer]. Subjective Ghislaine Givens is a 34 year [...] J45.20 Frantz Arevalo PA-C documented in this encounterAs[facility]01-12-2024 Procedure [facility]12-21-2023 History of Present illness Narrative* Andres Galaviz APRN.STRIP WINDER - 07/01/2023 10:42 AM EST Images from [...] 1 disorder (HCC) 2007 Depression Diabetes mellitus ([facility]) Elevated BP 04/28/2013 Insomnia PAST SURGICAL HISTORY [...] to affected area twice daily. pantoprazole DR WhiteheadPROTONIX) 40 mg tablet Take 1 tablet by [...] ophthalmology. Appointment scheduled today 115. Andres Galaviz APRN.SUZANNE documented in this encounterAsht[facility]ula [facility]12-16-2023 Discharge summary Author Alex Christiansen [facility] June 26, 2023 6:14pm Note Date/Time June 26, 2023 12:09pm [facility] Medical Records Department [address] [place] [address] Emergency Department Summary 06/26/23 MR#: [id number] Acct: [id number] Name: GHISLAINE GIVENS Rep #:[id number] : 1990 33 From: Taiwo Chen MD [...] pharmacy. She denies any other new symptoms. [facility] Medical History Anxiety Asthma Constipation Depression [...] mg rectal suppository (Dulcolax (bisacodyl)) 10 mg MA DAILY 3 days #12 ea 01/15/23 [Rx [...] % (Auto) 63.6 Lymph % (Auto) 30.6 Braxton % (Auto) 4.3 Eos % (Auto) 0.2 [...] [Dulcolax (bisacodyl)] 10 mg suppository 10 mg MA DAILY 3 Days Qty: 12 0RF Rx [...] your Primary Care Provider. Call [facility] ([phone]) or report to the closest Emergency Room. [...] applicable): cc: Dr. Sophy Gibbons ~* Signed [facility] Work Phone: 1(831) 705-355010-29-2023 Progress note Author Rickey Gifford [facility] May 09, 2023 11:46am Note Date/Time May 09, 2023 7 :55am [facility] Medical Records Department [address] [place] [address] Progress Note - Hospitalist 05/09/23751 MR#: [id number] Acct: [id number] Name: GHISLAINE GIVENS Rep #:[id number] : 1990 33 From: Rickey Gifford DO PCP: Care Physician,No Primary Status :ADM IN Location: [place] [address]-1 Reason for Visit Reason for Visit: Diagnoses [...] have constipation. Also reviewing records through [facility]. Charges/Coding Visit Charges Inpatient E&M: 83130 Subs Hosp L3 05/09/23 1146 <Electronically signed by Rickey Gifford DO> Cosigner Signature (if applicable): CC: ~ Signed [facility] Work Phone: 1(979) 244-586910-29-2023 Progress note Author Abdirizak Forrest [facility] May 09, 2023 10:47am Note Date/Time May 09, 2023 1 0:19am [facility] Medical Records Department [address] [place] [address] Progress Note - Surgery 05/09/23 1018 MR#: [id number] Acct: [id number] Name: GHISLAINE GIVENS Rep #:[id number] : 1990 33 From: Abdirizak Gupta PM PCP: Care Physician,No Primary Status :ADM IN Location: MS3 GD499-8 Subjective Subjective Ms. Givens is a 33-year-old [...] Cosigner Signature (if applicable): CC: ~ Signed [facility] Work Phone: 1(872) 524-910510-28-2023 Progress note Author Rickey Gifford [facility] May 08, 2023 10:48am Note Date/Time May 08, 2023 7 :51am [facility] Medical Records Department [address] [place] [address] Progress Note - Hospitalist 05/08/23 0749 MR#: [id number] Acct: [id number] Name: GHISLAINE GIVENS Rep #:[id number] : 1990 33 From: Rickey Gifford DO PCP: Care Physician,No Primary Status :ADM IN Location: [place] [address]-1 Reason for Visit Reason for Visit: Diagnoses [...] with enoxaparin. Charges/Coding Visit Charges Inpatient E&M: 96147 Subs Hosp L2 05/08/23 1048 <Electronically signed by Rickey Gifford DO> Cosigner Signature (if applicable): CC: ~ Signed [facility] Work Phone: 1([phone]) 994-434710-28-2023 Progress note Author Abdirizak Forrest [facility] May 08, 2023 10:31am Note Date/Time May 08, 2023 9 :18am [facility] Medical Records Department [address] [place] [address] Progress Note - Surgery 05/08/23 0917 MR#: [id number] Acct: [id number] Name: GHISLAINE GIVENS Rep #:[id number] : 1990 33 From: Abdirizak Gupta PM PCP: Care Physician,No Primary Status :ADM IN Location: MS3 RO091-0 Subjective Subjective Mrs. Givens is a 33-year-old [...] Cosigner Signature (if applicable): CC: ~ Signed [facility] Work Phone: 1([phone]) 950-600710-27-2023 Procedure [facility] 05-07-2023 Progress note Author Rickey Gifford [facility] May 07, 2023 12:40pm Note Date/Time May 07, 2023 1 2:36pm [facility] Medical Records Department [address] [facility] [place] [address] Progress Note - Hospitalist 05/07/23 1229 MR#: [id number] Acct: [id number] Name: GHISLAINE GIVENSREBA Rep #:[id number] : 1990 33 From: Rickey Gifford DO PCP: Care Physician,No Primary Status :ADM IN Location: [place] [address] Reason for Visit Reason for Visit: Diagnoses [...] her symptoms. Charges/Coding Visit Charges Inpatient E&M: 88890 Subs Hosp L2 05/07/23 1240 <Electronically signed by Rickey Gifford DO> Cosigner Signature (if applicable): CC: ~ Signed [facility] Work Phone: 1(843) 393-193810-26-2023 Consult note Author Rickey Gifford [facility] May 06, 2023 4:46pm Note Date/Time May 04, 2023 8 :30pm [facility] Medical Records Department [address] [place] [address] Pharmacokinetic/Renal -Consult 05/04/232026 MR#: [id number] Acct: [id number] Name: GHISLAINE GIVENS Rep #:[id number] : 1990 33 From: Otto enamorado PCP: Care Physician,No Primary Status :ADM IN Y Location: [place] [address] Consult Antibiotic Management Pharmacy has been consulted [...] will continue with 1000mg IV q8h per [facility] dosing protocol. Will check a trough [...] Date Rickey Gifford DO CC: ~ Signed [facility] Work Phone: [phone] 313-702810-26-2023 Consult note Author Rickey Gifford [facility] May 06, 2023 4:46pm Note Date/Time May 05, 2023 2 :05pm [facility] Medical Records Department [address] [place] [address] Pharmacokinetic/Renal -Consult 05/05/23 1404 MR#: [id number] Acct: [id number] Name: GHISLAINE GIVENSREBA Rep #:[id number] : 1990 33 From: Gage Trejo PCP: Care Physician,No Primary Status :ADM IN Location: [place] [address] Consult Antibiotic Management Pharmacy has been consulted [...] Date Rickey Gifford DO CC: ~ Signed [facility] Work Phone: [phone]) 873-418910-26-2023 Progress note Author Rickey Gifford [facility] May 06, 2023 2:03pm Note Date/Time May 06, 2023 8 :47am [facility] Medical Records Department [address] [place] [address] Progress Note - Hospitalist 05/06/23 0844 MR#: [id number] Acct: [id number] Name: GHISLAINE GIVENS Rep #:[id number] : 1990 33 From: Rickey Gifford DO PCP: Care Physician,No Primary Status :ADM IN Location: [facility] CL513-4 Reason for Visit Reason for Visit: Diagnoses [...] (Auto) 40.5 L, Lymph % (Auto) 49.6H, Braxton % (Auto) 8.4, Eos % (Auto) 0.3, [...] with enoxaparin. Charges/Coding Visit Charges Inpatient E&M: 79757 Subs Hosp L1 05/06/23 1403 <Electronically signed by Rickey Gifford DO> Cosigner Signature (if applicable): CC: ~ Signed [facility] Work Phone: 1(268) 991-947310-26-2023 Progress note Author Abdirizak Forrest [facility] May 06, 2023 8:10am Note Date/Time May 06, 2023 8 :10am [facility] Medical Records Department [address] [place] [address] Progress Note - Surgery 05/06/23801 MR#: [id number] Acct: [id number] Name: GHISLAINE GIVENS Rep #:[id number] : 1990 33 From: Abdirizak Gupta PM PCP: Care Physician,No Primary Status :ADM IN Location: MS3 IY744-7 Subjective Subjective Ms. Givens is a 33-year-old [...] (Auto) 40.5 L, Lymph % (Auto) 49.6H, Braxton % (Auto) 8.4, Eos % (Auto) 0.3, [...] Cosigner Signature (if applicable): CC: ~ Signed [facility] Work Phone: 1([phone]) 981-551210-25-2023 Progress note Author Rickey Gifford [facility] May 05, 2023 1:09pm Note Date/Time May 05, 2023 7 :49am [facility] Medical Records Department [address] [place] [address] Progress Note - Hospitalist 05/05/23 0745 MR#: [id number] Acct: [id number] Name: GHISLAINE GIVENS Rep #:[id number] : 1990 33 From: Rickey Gifford DO PCP: Care Physician,No Primary Status :ADM IN Location: [address] Reason for Visit Reason for Visit: [...] 73.2 H, Lymph % (Auto) 14.9 L, Braxton % (Auto) 10.2 H, Eos % (Auto) [...] % (Auto) 56.9, Lymph % (Auto) 30.9, Braxton % (Auto) 11.1 H, Eos % (Auto) [...] 11:59 EDT Reading Location ID and State: [address] [place] [address] , Service support , Physical Exam Const [...] with enoxaparin. Charges/Coding Visit Charges Inpatient E&M: 82006 Subs Hosp L2 05/05/23 9820 <Electronically signed by Rickey Gifford DO> Cosigner Signature (if applicable): CC: ~ Signed [facility] Work Phone: [phone] 738-504410-25-2023 Progress note Author Abdirizak Forrest [facility] May 05, 2023 10:17am Note Date/Time May 05, 2023 8 :29am [facility] Medical Records Department [address] [place] [address] Progress Note - Surgery 05/05/23 0829 MR#: [id number] Acct: [id number] Name: GHISLAINE GIVENS Rep #:[id number] : 1990 33 From: Abdirizak Gupta PM PCP: Care Physician,No Primary Status :ADM IN Location: MS3 IZ976-6 Subjective Subjective Ms. Givens is a 33-year-old [...] 73.2 H, Lymph % (Auto) 14.9 L, Braxton % (Auto) 10.2 H, Eos % (Auto) [...] % (Auto) 56.9, Lymph % (Auto) 30.9, Braxton % (Auto) 11.1 H, Eos % (Auto) [...] 11:59 EDT Reading Location ID and State: [facility] / [place] , Service support , Physical Exam Narrative Neurovascular is unchanged. [...] Cosigner Signature (if applicable): CC: ~ Signed [facility] Work Phone: [phone]) 644-716510-24-2023 Consult note Author Abdirizak Forrest [facility] May 04, 2023 5:02pm Note Date/Time May 04, 2023 4 :48pm [facility] Medical Records Department [address] [place] [address] Consultation 05/04/23 1642 MR#: [id number] Acct: [id number] Name: GHISLAINE GIVENS Rep #:[id number] : 1990 33 From: Abdirizak Forrest D PM PCP: Care Physician,No Primary Status :[facility] Location: [place] [address] Assessment & Plan Assessment/Plan (1) Type 2 [...] is a 33 F who presented to [facility] emergency department for concerns for worsening [...] No other pedal complaints at this time. [facility] Medical History Anxiety Asthma Constipation Depression Diabetes [...] mg rectal suppository (Dulcolax (bisacodyl)) 10 mg MA DAILY 3 days #12 ea 01/15/23 [Rx [...] 25 mg rectal suppository (Promethegan) 25 mg MA Q6H PRN PRN Nausea #6 supp 04/13/23 [...] 73.2 H, Lymph % (Auto) 14.9 L, Braxton % (Auto) 10.2 H, Eos % (Auto) [...] 11:59 EDT Reading Location ID and State: [facility] / [place] , Service support , 05/04/23 1702 <Electronically signed by Abdirizak Forrest DPM> Cosigner Signature (if applicable): CC: No Primary Care Physician~ Signed [facility] Work Phone: 1([phone]) 376-740110-24-2023 Procedure [facility] 05-04-2023 Discharge summary Author Javy Doss [facility] May 04, 2023 3:49pm Note Date/Time May 04, 2023 1 0:56am [facility] Medical Records Department [address] [place] [address] Emergency Department Summary 05/04/23 MR#: [id number] Acct: [id number] Name: GHISLAINE GIVENS Rep #:[id number] : 1990 33 From: Javy Doss DO PCP: Care Physician,No Primary Status :[facility] Location: [facility] A-1 HPI History of Present Illness Chief [...] denies any fever. Patient is a diabetic. [facility] Medical History (Updated 05/04/23 @ 13:11 [...] mg rectal suppository (Dulcolax (bisacodyl)) 10 mg MA DAILY 3 days #12 ea 01/15/23 [Rx [...] 25 mg rectal suppository (Promethegan) 25 mg MA Q6H PRN PRN Nausea #6 supp 04/13/23 [...] 73.2 H Lymph % (Auto) 14.9 L Braxton % (Auto) 10.2 H Eos % (Auto) [...] 11:59 EDT Reading Location ID and State: [facility] / [place] , Service support , Three-view x-rays of the right foot obtained interpreted by myself as soft tissue swelling with gas in the soft tissues. Radiology in agreement. There isno evidence of osteomyelitis. Discharge Plan Dx/Rx/DC Orders Clinical Impression: Diabetic foot infection, Diabetes, Leukocytosis Disposition Disposition: Acute Care Hospital [facility] Discharge Date/Time: 05/04/23 15:25 What to do if you have Problems For any increased pain, shortness of breath, bleeding, nausea or vomiting, chestpain, or any unexpected problems, contact your Primary Care Provider. Call [facility] ([phone]) or report to the closest Emergency Room. Call 911 if necessary. 05/04/23 154 <Electronically signed by Javy Doss DO> Cosigner Signature (if applicable): CC: No Primary Care Physician ~ Signed [facility] Work Phone: 1(564) 253-856510-24-2023 History and physical note Author Rickey Gifford [facility] May 04, 2023 1:14pm Note Date/Time May 04, 2023 1 :13pm [facility] Medical Records Department [address] [place] [address] H&P Exam - Hospitalist 05/04/23 1309 MR#: [id number] Acct: [id number] Name: GHISLAINE GIVENS Rep #:[id number] : 1990 33 From: Rickey Gifford DO PCP: Care Physician,No Primary Status :REG ER Location: ED [facility] - General General Date of Service: 05/04/23 [...] Patient received vancomycin in the emergency room. [facility] Medical History (Updated 05/04/23 @ 13:11 by [...] mg rectal suppository (Dulcolax (bisacodyl)) 10 mg MA DAILY 3 days #12 ea 01/15/23 [Rx [...] 25 mg rectal suppository (Promethegan) 25 mg MA Q6H PRN PRN Nausea #6 supp 04/13/23 [...] 73.2 H, Lymph % (Auto) 14.9 L, Braxton % (Auto) 10.2 H, Eos % (Auto) [...] 11:59 EDT Reading Location ID and State: [facility] / [place] , Service support , Assessment & Plan [...] with enoxaparin. Charges/Coding Visit Charges Inpatient E&M: 85793 Init Hosp L2 05/04/23 1314 <Electronically signed by Rickey Gifford DO> Cosigner Signature (if applicable): CC: Dr. Rickey Gifford DO; No Primary Care Physician~ Signed [facility] Work Phone: 1(667) 665-729210-24-2023 History and physical note Author Rickey Gifford [facility] May 04, 2023 1:14pm Note Date/Time May 04, 2023 1 :13pm [facility] Medical Records Department [address] [place] [address] H&P Exam - Hospitalist 05/04/23 1309 MR#: [id number] Acct: [id number] Name: GHISLAINE GIVENS Rep #:[id number] : 1990 33 From: Rickey Gifford DO [...] Patient received vancomycin in the emergency room. [facility] Medical History (Updated 05/04/23 @ 13:11 by [...] mg rectal suppository (Dulcolax (bisacodyl)) 10 mg MA DAILY 3 days #12 ea 01/15/23 [Rx [...] 25 mg rectal suppository (Promethegan) 25 mg MA Q6H PRN PRN Nausea #6 supp 04/13/23 [...] 73.2 H, Lymph % (Auto) 14.9 L, Braxton % (Auto) 10.2 H, Eos % (Auto) [...] 11:59 EDT Reading Location ID and State: [address] [place] [address] , Service support , Assessment & Plan [...] with enoxaparin. Charges/Coding Visit Charges Inpatient E&M: 39683 Init Hosp L2 05/04/23 1314 <Electronically signed by Rickey Gifford DO> Cosigner Signature (if applicable): CC: Dr. Rickey Gifford, ; No Primary Care Physician~ Signed [facility] Work Phone: 1(774) 794-624010-05-2023 History of Present illness Narrative* Abdirizak Peña APRN.STRIP WINDER - 04/15/2023 11:13 AM EDT Patient triaged at [facility]. Here today with abd pain and sob, patients crying. Breathing easy but appears in pain. O2 100% on RA. Will refer to ER, declines squad, friend to drive to ER. documented in this encounterAshtabula County [facility] Center09-15-2023 History of Present illness Narrative* Claritza Sierra - 03/26/2023 2:21 PM EDT POPULATION HEALTH NAVIGATION OUTREACH Action/[facility] Hollister Support: Called pt to schedule an appt in Pain Management. Lvm for pt to call [phone] for scheduling. Patient Identified by Name and : NO Outreach Outcome/Action Unable to reach patient: Left message Did you use a PCP flex slot to schedule this appointment? No Reason for Outreach Care Gap or Scheduling/Wellness visits Payer: Payor: [employer] MEDICAID / Plan: [facility] [place] / Product Type: Medicaid [...] 26, 2023 2:22 PM documented in this encounterAshtabula County [facility] Center09-01-2023 History of Present illness Narrative* Pilar Magdaleno APRN.STRIP WINDER - 03/12/2023 12:12 PM EDT Please let patient know Dr. Sun is not in network. I [facility]. documented in this encounterAshtabula County [facility] Center08-29-2023 Miscellaneous Notes* Telephone Encounter - Milagros Cloud RN - 03/09/2023 12:35 PM EDT Boyfriend calls and not listed on chart. Requested to speak to patient. Patient requesting pain management referral be faxed to Dr. Lr. Faxed per request to [phone]. Milagros Cloud RN documented in this encounterAshtabula County Medical Center08-24-2023 NoteHNO ID: [id number] Author: Kelley Lopez MD Service: ? Author Type: Physician Type: Progress Notes Filed: 03/11/2023 7:18 AM Note Text: Documentation Query Based on your medical judgment of the clinical indicators outlined below, please clarify the condition: (Please type X next to your response and sign) Clinical indicators: 03.03.23 Gastroenterology note STRIP WINDER: Plan: Nausea with vomiting Generalized abdominal pain [...] OK.Physical examination is benign.Soft and non tender... 8.24.23 Discharge summary note: past medical history of [...] X Other, please specify___due to psychiatric problems [facility]08-24-2023 NoteHNO ID: [id number] Author: Kelley Lopez MD Service: ? Author [...] by psych and GI. Discussed with social media intern/trimming caser. OK to discharge the patient. Rest of management as outpatient. I personally spent more than 30 minutes for discharge of this patient. Discussed with unit PA/STRIP WINDER about care plans. Recommended to see her [...] MD DATE: March 04, 2023 TIME: 11:57 [facility]08-24-2023 NoteHNO ID: [id number] Author: Cary Pino RN Service: Care Management [...] No Caregiver needed Transportation Arrangements Transportation Arrangements: [employer] and Phone #:: [facility] [phone] Date of Trip: 03/04/23 Time of Trip: 1730 Type of Service: Wheelchair Is Patient Medicaid Pending?: No Was transportation financial coverage discussed with family?: Patient Outpatient Phlebotomist Location: [facility] Destination: Home Financial Care Management Responsibility: [...] ED to Hosp-Admission (Current) from 03/01/2023 in [facility] Observation Unit Medical Follow-Up Appointment Specialty Psychaitry Behavior Health/Jose L Mccarthy Provider Name [facility] Address [address], [place] [address] Additional Instructions Please call for appointment to establish physician for mental health SIGNATURE: Cary Pino RN PATIENT NAME: Ghislaine Givens DATE: March 04, 2023 TIME: 11:26 AM CONTACT #: [phone] NoteHNO ID: [id number] Author: Cary Pino RN Service: Care Management [...] 04, 2023 TIME: 11:25 AM PAGER/CONTACT #: [phone] Note HNO ID: [id number] Author: Kelley Lopez MD Service: ? Author [...] to discharge in AM. Discussed with social media intern/trimming caser. Advance diet. Physical Examination: GENERAL: alert, no [...] MD DATE: March 03, 2023 TIME: 3:15 [facility]08-23-2023 NoteHNO ID: [id number] Author: Frida Scott APRN.STRIP WINDER Service: Gastroenterology Author Type: Nurse Practitioner Type: Plan of Care Filed: 03/03/2023 11:30 AM Note Text: DEPARTMENT OF GASTROENTEROLOGY AND HEPATOLOGY [facility] INPATIENT VISIT DATE AND TIME 03/03/23 [...] mild gastritis and an esophageal ulcer at [facility]. Patient presented from outpatient GI clinic in apparent acute distress with vomiting to ED. Reported possible blood in emesis and unable to quantify number of times she vomited. Reported 8/ abdominal pain with concurrent heart burn, intermittent [...] and re-consult as needed. SIGNATURE: Frida Scott APRN.STRIP WINDER PAGER/CONTACT #: For concerns during days 7a-5p, contact LASER PRINT OPERATOR directly [phone] Please page [phone] for covering attending concernsMissouri Delta Medical Center08-22-2023 Telephone encounter Note* Telephone Encounter - Almita Kelly PA-C - 03/02/2023 2:30 PM EDT Hi, The patient needs outpatient GES for persistent nausea and vomiting once optimized. Orders placed. The patient is a Dr. Doran patient and should follow- up with him. Thanks! Almita Kelly PA-C Gastroenterology and Hepatology [facility]08-22-2023 Miscellaneous Notes* Telephone Encounter - Almita Kelly PA-C - 03/02/2023 2:30 PM EDT Hi, The patient needs outpatient GES for persistent nausea and vomiting once optimized. Orders placed. The patient is a Dr. Doran patient and should follow- up with him. Thanks! Almita Kelly PA-C Gastroenterology and Hepatology documented in this encounterAshtabula County Medical Center08-22-2023 History of Present illness Narrative* Claritza Sierra - 03/02/2023 1:27 PM EDT POPULATION HEALTH NAVIGATION OUTREACH Action/[facility] Hollister Support: Called pt to schedule an appt in Pain Management. No voicemail, unable to lvm Patient Identified by Name and : NO Outreach Outcome/Action Unable to reach patient: Phone number not valid / voicemail full Did you use a PCP flex slot to schedule this appointment? No Reason for Outreach Care Gap or Scheduling/Wellness visits Payer: Payor: [employer] MEDICAID / Plan: [employer] [place] / Product Type: Medicaid [...] 02, 2023 1:27 PM documented in this encounterAshtabula County Medical Center08-22-2023 NoteHNO ID: [id number] Author: Ghislaine Mancilla, RN Service: ? Author Type: Registered Nurse Type: Progress Notes Filed: 03/02/2023 5:47 PM Note Text: IV access lost. X2 RN attempted to get new access with no success. AMET and NOM notified and states will come and attempt soon. LASER PRINT OPERATOR notified via secure chat. Patient also complains of pain for second time this shift and LASER PRINT OPERATOR notified for second time as well. States tylenol did not work when given during morning medication rounds. Patient now walking halls as she states movement helps with pain at times. Informed LASER PRINT OPERATOR of patient calus/wound to right foot as [...] aware and MOVIPREP will be moved to warehouse shift supervisor to attempt at a later time. As patient states she cannot tolerate drinking. 1730 Patient ordered oral contrast dye with CT. aircraft maintenance technician states patient refusing to drink oral contrast. GI made aware via secure chat but no changes to orders made at this time. Patient will be sent to room with contrast dye per aircraft maintenance technician. If pt drinks contrast and can keep in her body CT asked to be called and patient will then have the scan.[facility] 03-02-2023 NoteHNO ID: [id number] Author: Cary Pino RN Service: Care Management Author Type: Registered Nurse Type: Care Mgt Initial Assessment Filed: 03/02/2023 10:24 AM Note Text: CARE MANAGEMENT: ASSESSMENT AND DISCHARGE PLAN SERVICE DATE: March 02, 2023 SERVICE TIME: 8:46 AM PCP: Amy Solorzano NP Primary Contact: Extended Emergency Contact Information Primary Emergency Contact: Jessie Givens Relation: Aunt Secondary Emergency Contact: Rhona Givens Relation: Grandparent Admission Status: Inpatient Insurance Provider: [employer] [place]ID [place] Discharge Planning requested by: Per Department Practice Potential Transition Plans Home Advance Directives Current Advance Directive: None It Service Manager Attempted to Assist with AD Completion: Yes [...] General wellness, Be able to go home [place] of Choice Explained: [place] of Choice Given: No Reason Not Given: [...] during this admission, please contact Case Management. [phone]. Uber transport will be needed once stable for discharge. HX Depression Bipolar disorder DM SIGNATURE: Cary Pino RN PATIENT NAME: Ghislaine Givens DATE: March 02, 2023 TIME: 8:46 AM CONTACT #: [phone] History of Present illness Narrative* Dewayne Doran MD - 03/01/2023 10:40 AM EDT NAME: Ghislaine Givens AGE: [age] year old Referred by: Pilar Magdaleno [address] [place] [address] Referred for: an opinion regarding nausea and [...] Past Histories independently gathered by the clinical retail support associate and the remaining scribed note accurately describes [...] PHYSICIAN Dewayne Doran MD documented in this encounterAshtabula County Medical Center08-15-2023 History of Present illness Narrative* Pilar Magdaleno APRN.STRIP WINDER - 02/23/2023 10:11 AM EDT Chief Complaint Patient presents with: Hospital F/U [facility] Ghislaine Gviens is a 33 year old female who [...] - CONSULT TO PAIN MGT Pilar Magdaleno APRN.STRIP WINDER documented in this encounterAshtabula County Medical Center08-08-2023 Note. MICRO - Microbiology PROCEDURE: Blood Culture [...] Locations *1: This test was performed at: [address], [facility] , [facility]02-16-2023 Note. MICRO - Microbiology PROCEDURE: Blood Culture [...] Locations *1: This test was performed at: [address], [address] [place], [place] [address]102-11-2023 Hospital Discharge instructions Patient Education 02/11/2023 17:15:56 [...] as coffee and soda. Take and apply enoa-bnp-ysjjdnf and prescription medicines only as told by [...] 10/06/2017 Document Revised: 11/04/2018 Document Reviewed: 10/06/2017 [employer] Patient Education 2020 [employer]. 02/11/2023 17:15:45 Nausea, Adult, Tybd-ou-Xfxd Nausea, Adult Nausea is feeling sick to [...] fruit juice). ?Low-calorie sports drinks. Eat bland, qtki-nj-fzxaay foods in small amounts as you are able, such as: ?Bananas. ?Applesauce. ?Rice. ?Low-fat (lean) meats. ?[place]. ?Crackers. Avoid drinking fluids that have a lot of sugar or caffeine in them. This includes energy drinks, sports drinks, and soda. Avoid alcohol. Avoid spicy or fatty foods. General instructions Take yqui-nyn-rzsvtjo and prescription medicines only as told by your doctor. Rest at home while you get better. Drink enough fluid to keep your pee (urine) pale yellow. Take slow and deep breaths when you feel sick to your stomach. Avoid food or things that have strong smells. Wash your hands often with soap and water. If you cannot use soap and water, use hand entry level automotive technician. Make sure that all people in your [...] drink what your doctor tells you. Take zaey-ayu-gearxrx and prescription medicines only as told by [...] 06/16/2012 Document Revised: 12/06/2018 Document Reviewed: 12/06/2018 [employer] Patient Education 2020 [employer]. Follow Up Care 02/10/2023 23:24:03 With:AMY SOLORZANO APRN-STRIP WINDER Address: [address] [place] [address]- [phone] When:3-5 days Comments:Please call to schedule your post-hospital follow-up appointment. [facility] 08-03-2023 Note Date of Service 02/11/2023 Chief Complaint C/o generalized ABD pain, N/V, multiple recent falls. States she has not been checking her blood sugar either. States she is supposed to be using insulin for DM. History of Present Illness 33-year-old female with past medical history significant for HTN, type 2 diabetes mellitus, neuropathy, depression/anxiety, asthma, cannabis use. Patient presented to [facility] emergency department on 02/10/2023 with [...] and pelvis with contrast. 01/07/2023 and 01/09/2023 [facility] ED visit 01/10/2023 [facility] ED visit. CT abdomen and pelvis with contrast that showed left hydrosalpinx, mildly dilated CBD with adjacent more than expected khurram hepatis adenopathy which may be reactive. She was treated with IV fluids and antiemetics and discharged. 01/12/2023 and 01/13/2023 [facility] ED visit treated with IV fluids and antiemetics, haldol and discharged. 01/14/2023 [facility] emergency department visit. IV fluids and antiemetics given. Admitted for hypokalemia. CT abdomen and pelvis with bilateral small ovarian cysts. 01/17/2023 [facility] ED visit. CT abdomen and pelvis with contrast showed underfilling versus mucosal thickening at rectosigmoid colon. Otherwise unremarkable. 01/24 [facility] emergency department visit. Discharged with a prescription for Keflex and Reglan. No imaging done. 01/25 [facility] emergency department treated with IV fluids and antiemetics. 727: She was seen in urgent care and advised to go to the emergency department. [facility] ED visit treated with IV fluids and antiemetics and discharged. She was seen at [facility] on 02/08. She had CT of [...] by MARTI WEBB on 02/11/2023 07:14 PM [facility]08-03-2023 Note Discharge Instructions Thank you for allowing [facility] to assist you with your healthcare needs. The following is importantdischarge information regarding your hospital visit. Your Care Team [facility] Your Diagnosis Abdominal pain Hyponatremia [...] to schedule your post-hospital follow-up appointment. Where: [address] [place] [address] [phone] The Following Activity and Diet Have Been [...] a day Duration: 7 Days Pickup at [facility] Unchanged promethazine (promethazine 25 mg rectal suppository) 1 suppository(ies) in the rectum Every 6 hours as needed for for nausea/vomiting Cannabis hyperemesis syndrome co-occurrent and due to cannabis abuse Pharmacy Information [facility]: [address] [place], [place] [phone] What How Much When Why Comments Stop [...] as coffee and soda. Take and apply nqkk-soz-wqxqmwk and prescription medicines only as told by [...] 10/06/2017 Document Revised: 11/04/2018 Document Reviewed: 10/06/2017 [employer] Patient Education 2020 [employer]. Nausea, Adult Nausea is feeling sick to [...] juice). ? Low-calorie sports drinks. Eat bland, tatw-li-sfieqr foods in small amounts as you are able, such as: ? Bananas. ? Applesauce. ? Rice. ? Low-fat (lean) meats. ? [place]. ? Crackers. Avoid drinking fluids that have a lot of sugar or caffeine in them. This includes energy drinks, sports drinks, and soda. Avoid alcohol. Avoid spicy or fatty foods. General instructions Take bdna-bjc-qebfwbv and prescription medicines only as told by your doctor. Rest at home while you get better. Drink enough fluid to keep your pee (urine) pale yellow. Take slow and deep breaths when you feel sick to your stomach. Avoid food or things that have strong smells. Wash your hands often with soap and water. If you cannot use soap and water, use hand entry level automotive technician. Make sure that all people in your [...] drink what your doctor tells you. Take dlgv-sac-gwhncpx and prescription medicines only as told by [...] 06/16/2012 Document Revised: 12/06/2018 Document Reviewed: 12/06/2018 [employer]fin Patient Education 2020 [employer]. Additional Information VACCINATE! IT SAVES LIVES! Members of the community who have not yet received the COVID-19 vaccine and would like to receive it can visit one of [facility] vaccine clinics. There are many vaccine clinic locations within the [facility]. For locations and available times, please visit https://gettheshot.coronavirus.[place].gov/. It is important to note that some COVID mobile vaccine clinics are held outdoors and may be canceled in rainy or stormy conditions. To learn more about pediatric vaccinations (ages 5-11), we invite you to visit the [employer] webpage. https://www.Zazoos.org/pages/9110-Usdgw-Hwapfocpkgh-Czzcvspzqq-Hapxt-Tzr stions.htmlTo learn more about the COVID-19 vaccine, we invite you to visit the CDC website for a list of frequently asked questions.https://www.cdc.gov/coronavirus/2019-ncov/vaccines/faq.html [employer] Patient Portal Access Instructions: Stay connected with your healthcare team and access your personal medical information anytime with the [employer] Patient Portal. Please follow the directions below to create your [employer] account: 1.Access the email account you provided upon registration to the hospital/physician office.2.Look for an invitation email from [facility].3.Open the email and access the invitation link: AcceptInvitation to [employer].4.Fill in the required joy to create your account. To access your account, visit [employer]/3DiVi CompanyOneChart. Click the blue button labeled Access Patient [...] who you will allowto register on the [facility] [employer] Patient Portal for access to your information. You can also access the [facility] Patient Portal on the [facility] Anywhere della. Simply click on Patient Portal and then log into your account. If you would like to receive a full copy of your medical records, please contact the [facility] Medical Records Department by calling [phone], Wednesday through Wednesday between 8 a.m. and [...] Call your local pharmacy or go to [email or web address] to find one close to you.3.Make use of household items: Use cat litter or old coffee grounds to dispose medications if other options arenot available. Mix your drugs with these household products, seal them in an airtight container andthrow it into the garbage. Call [facility]: [phone] to be sure your drugs can be [...] Education Materials Cannabinoid Hyperemesis Syndrome Nausea, Adult, Shlb-hs-Zekk Medication Leaflets My discharge plan and instructions have been reviewed and explained to me and I,GHISLAINE GIVENS understand my current condition and have read and understand these discharge instructions. I have received a written copy of the plan/instructions. If I have questions, I am aware that I should contact my doctor. Patient/Blade Grinder Signature: Date/Time: Relationship to Patient: Witness Name/Signature: Date/Time: [facility]08-03-2023 Note ORIGINAL EXAMINATION: GASTRIC EMPTYING STUDY02/11/2023 [...] Date: 02/11/2023 3:41:00 PM Ordering Provider[facility] Evaluation + Plan noteExtracted from: Title:History and Physical Author:MARTI WEBB CONTROL SUPERVISOR-STRIP WINDER Date:02/11/23 1. Abdominal pain 2. Hyponatremia 3. [...] and may include grammatical and/or spelling errors. [facility] 08-03-2023 Note ORIGINAL EXAMINATION: TRANSVAGINAL PELVIC [...] Sign Date: 02/11/2023 12:11:13 PM Ordering Provider: [facility]08-03-2023 Note ORIGINAL EXAMINATION: ONE SUPINE XRAY VIEW(S) [...] Sign Date: 02/11/2023 9:28:54 AM Ordering Provider: [facility]08-03-2023 Note ORIGINAL EXAMINATION: COMPLETE ABDOMINAL ULTRASOUND 02/11/2023 [...] Sign Date: 02/11/2023 1:29:01 PM Ordering Provider: [facility]07-27-2023 History of Present illness Narrative* Irais Hanna [...] that due to limited diagnostic capabilities in [facility], I recommend she go back to the ER since she is having pain and unable to keep down fluids. She understands. She does have a PCP, but would like a new one. I had our maid cleaning cooking help with scheduling a PCP appointment for the future, but still advise she go to the ER today. documented in this encounterAshtabula County Medical Center07-16-2023 Hospital Discharge instructions* Discharge Instructions* Abdirizak Ramirez [...] your visit today. Please follow up with [facility] care provider with any questions or concerns about your results today. Thank you for choosing [facility] for your care. Sincerely, Abdirizak Ramirez MD documented in this [facility]07-16-2023 Emergency department Note* Abdirizak Ramirez MD - 01/24/2023 10:03 AM EDT [facility] ED EMERGENCY DEPARTMENT ENCOUNTER Pt Name: Ghislaine [...] Culture. Procedure Abnormality Status --------- ------ Complete Urinalysis[[id number]] Abnormal Final result Please view results for [...] of DVT, no recent surgery/immobilization. Based on zambian syncope rule (see below), patient is low risk and well appearing here, plan to discharge the patient home with PMD follow up. Syrian syncope rule: predisposition to vasovagal symptoms/consistent with [...] PM PATIENT REFERRED TO: Amy Solorzano [address] [facility] [id number] Schedule an appointment as soon as [...] Abdirizak Ramirez MD [facility] Emergency Medicine Physician [facility] Abdirizak Ramirez MD 01/24/23 1303 * Tamica Penaloza RN - 01/24/2023 10:03 AM EDT Patient to room 15 with c/o vomiting for 3 weeks. Patient reports being at [facility] and being told it was [facility], and there was nothing more they could do for her. Patient reports having Zofran at home that she doesn't take, because it has not relieved her symptoms. V/S obtained, call light within reach. documented in this [facility]07-16-2023 Emergency department Triage note* Tamica Penaloza RN - 01/24/2023 10:03 AM EDT Patient to room 15 with c/o vomiting for 3 weeks. Patient reports being at [facility] and being told it was [facility], and there was nothing more they could do for her. Patient reports having Zofran at home that she doesn't take, because it has not relieved her symptoms. V/S obtained, call light within reach. [id number] Physician Emergency department Note* Abdirizak Ramirez MD - 01/24/2023 10:03 AM EDT [facility] ED EMERGENCY DEPARTMENT ENCOUNTER Pt Name: Ghislaine [...] Culture. Procedure Abnormality Status --------- ------ Complete Urinalysis[[id number]] Abnormal Final result Please view results for [...] of DVT, no recent surgery/immobilization. Based on zambian syncope rule (see below), patient is low risk and well appearing here, plan to discharge the patient home with PMD follow up. Syrian syncope rule: predisposition to vasovagal symptoms/consistent with [...] PM PATIENT REFERRED TO: Amy Solorzano [address] [facility] [address] Schedule an appointment as soon as [...] Abdirizak Ramirez MD [place] Emergency Medicine Physician [facility] Abdirizak Ramirez MD 01/24/23 1303 [id number] Discharge summary Author Lexus Villatoro [facility] January 15, 2023 2:12pm Note Date/Time January 15, 2023 2:11p m [facility] Medical Records Department [address] [place] [address] Instructions for Home/Discharge Instructions 01/15/23 1411 MR#: [id number] Acct: [id number] Name: GHISLAINE GIVENS Rep #:[id number] : 1990 32 From: Lexus Villatoro MD PCP: [facility] St atus:ADM BOB Discharge Instructions Diet Discharge [...] Attending Provider: Lexus Villatoro Primary Care Provider: [facility] Instructions Patient Instructions: Cannabinoid Hyperemesis Syndrome, ED [...] [Dulcolax (bisacodyl)] 10 mg suppository 10 mg MA DAILY 3 Days Qty: 12 0RF Rx [...] Qty: 7 0RF Referrals / Follow Up: [facility] [Primary Care Provider] - Within 1 Week Disposition Disposition (needs filled in before D/C Order can be placed): Home, Self Care 01/15/23 1411<Electronically signed by Lexus Villatoro MD>Lexus Villatoro MD CC: [facility] ~ Signed ADDENDUM by Dr. Lexus Villatoro MD on 01/15/23 at 1412 You were noted to have a small ovarian cyst, this was seen previous on a scan ofur abdomen as well. Please follow up with your PCP or ob/cushion filler for further management and monitoring 01/15/23 1412<Electronically signed by Lexus Villatoro MD>Lexus Villatoro MD cc: [facility] ~* Signed [facility] Work Phone: 1(282) 772-680807-07-2023 Discharge summary Author Lexus Villatoro [facility] January 15, 2023 2:23pm Note Date/Time January 15, 2023 2:12p m [facility] Medical Records Department [address] [place] [address] Discharge Summary 01/15/23 1411 MR#: [id number] Acct: [id number] Name: GHISLAINE GIVENS Rep #:[id number] : 1990 32 From: Lexus Villatoro MD PCP: [facility] St atus:ADM BOB Location: [address] Providers Date of Admission: 01/14/23 Date of Discharge: 01/15/23 Primary Care Physician: [facility] Reason For Visit: INTRACTABLE NAUSEA VOMITING, HYPOKALEMIA [...] complication status: with neurologic complications Diabetes mellitus long term care phlebotomist insulin use: without half-way use Diabetes mellitus type: type 2 Plan [...] mg rectal suppository (Dulcolax (bisacodyl)) 10 mg MA DAILY 3 days #12 ea 01/15/23 scopolamine base 1 mg over 3 days transdermal patch 1 patch transdermal Q3D PRN nausea and vomiting #4 ea 01/15/23 Hospital Course Summary of Care Provided Minutes Spent on Discharge: 31 Hospital Course: GHISLAINE GIVENS, is a 32-year-old female with history of type 2 diabetes mellitus, hypertension, depression who presents to [facility] 01/14/2023 with 1 week of nausea, [...] Please follow up with your PCP or ob/cushion filler for further management and monitoring -Please call [...] % (Auto) 56.4, Lymph % (Auto) 34.2, Braxton% (Auto) 8.2, Eos % (Auto) 0.3, Baso [...] Attending Provider: Lexus Villatoro Primary Care Provider: [facility] Sophy Santiago Instructions Patient Instructions: Cannabinoid Hyperemesis Syndrome, ED [...] Please follow up with your PCP or ob/cushion filler for further management and monitoring -Please call [...] [Dulcolax (bisacodyl)] 10 mg suppository 10 mg MA DAILY 3 Days Qty: 12 0RF Rx [...] Qty: 7 0RF Referrals / Follow Up: [facility] [Primary Care Provider] - Within 1 Week Disposition Disposition (needs filled in before D/C Order can be placed): Home, Self Care Charges/Coding Visit Charges Inpatient E&M: 56333 Disch Hosp >30min 01/15/23 1423 <Electronically signed by Lexus Villatoro MD> Cosigner Signature (if applicable): CC: Dr. Lexus Villatoro MD; [facility]~ Signed [facility] Work Phone: 1(190) 680-554707-06-2023 History and physical note Author Lexus Villatoro [facility] January 14, 2023 6:10pm Note Date/Time January 14, 2023 3:59p m [facility] Medical Records Department [address] [place] [address] H&P Exam - Hospitalist 01/14/23 1552 MR#: [id number] Acct: [id number] Name: GHISLAINE GIVENS Rep #:[id number] : 1990 32 From: Lexus Villatoro MD PCP: [facility] St atus:ADM BOB Location: [facility] [id number] HPI - General General Date of Admission: 01/14/23 Date of Service: 01/14/23 Chief Complaint: Nausea HPI Narrative GHISLAINE GIVENS, is a 32-year-old female with history of type 2 diabetes mellitus, hypertension, depression who presents to [facility] 01/14/2023 with 1 week of nausea, [...] urinating regularly. Denies any other specific complaints [facility] Medical History Anxiety Asthma Constipation Depression Diabetes [...] % (Auto) 59.7, Lymph % (Auto) 31.2, Braxton% (Auto) 7.7, Eos % (Auto) 0.2, Baso [...] Clarity Clear, Urine pH 8.0, Ur Specific Zephyr 1.015, Urine Protein 15 H, Urine Glucose [...] documentation, 58minutes Charges/Coding Visit Charges Inpatient E&M: 55228 Init Hosp L2 01/14/230 <Electronically signed by Lexus Villatoro MD> Cosigner Signature (if applicable): CC: Dr. Lexus Villatoro MD; [facility]~ Signed [facility] Work Phone: 1(864) 319-250507-06-2023 Discharge summary Author Willie Dhillon [facility] January 14, 2023 3:33pm Note Date/Time January 14, 2023 12:08 pm [facility] Medical Records Department [address] [place] [address] Emergency Department Summary 01/14/23 MR#: [id number] Acct: [id number] Name: GHISLAINE GIVENS Rep #:[id number] : 1990 32 From: Willie Dhillon MD PCP: [facility] St atus:REG ER Location: ED HPI History [...] had any for a day or so. [facility] Medical History Anxiety Asthma Constipation Depression [...] % (Auto) 59.7 Lymph % (Auto) 31.2 Braxton % (Auto) 7.7 Eos % (Auto) 0.2 [...] Clarity Clear Urine pH 8.0 Ur Specific Zephyr 1.015 Urine Protein 15 H Urine Glucose [...] 13:57 EDT Reading Location ID and State: [address] [place] [address] , Service support , Discharge Plan Dx/Rx/DC Orders Clinical Impression: Failure of outpatient treatment, Elevated serum creatinine, Intractable nausea and vomiting, Acute hypokalemia Disposition Disposition: Acute Care Hospital [facility] What to do if you have Problems For any increased pain, shortness of breath, bleeding, nausea or vomiting, chestpain, or any unexpected problems, contact your Primary Care Provider. Call [facility] ([phone]) or report to the closest Emergency Room. Call 911 if necessary. 01/14/23 9733 <Electronically signed by Willie Dhillon MD> Cosigner Signature (if applicable): CC: [facility] ~ Signed [facility] Work Phone: 1(742) 840-906207-04-2023 Discharge summary Author Fabricio Guevara [facility] January 12, 2023 1:18pm Note Date/Time January 12, 2023 10:58 am [facility] Medical Records Department [address] [place] [address] Emergency Department Summary 01/12/23 MR#: [id number] Acct: [id number] Name: GHISLAINE GIVENS Rep #:[id number] : 1990 32 From: Fabricio Guevara MD PCP: [facility] St atus:REG ER Location: ED HPI HPI [...] similar symptoms: Yes Recent Illness/Hospitalization: No PFSH PFS Medical History Anxiety Asthma Constipation Depression Diabetes [...] 30 minutes before bedtime [facility]] - 3-5 Days if not improving Activity Restrictions/Additional Instructions: Zofran as needed for nausea. Follow-up with your doctor as needed. Stop using marijuana. Disposition Disposition: Home, Self Care What to do if you have Problems For any increased pain, shortness of breath, bleeding, nausea or vomiting, chestpain, or any unexpected problems, contact your Primary Care Provider. Call [facility] ([phone]) or report to the closest Emergency Room. Call 911 if necessary. 01/12/23 1318 <Electronically signed by Fabricio Guevara MD> Cosigner Signature (if applicable): CC: [facility] ~ Signed [facility] Work Phone: [phone]) 492-143707-04-2023 Note. MICRO - Microbiology PROCEDURE: Urine Culture [...] Locations *1: This test was performed at: [facility], [address] [place] [address], [address] , [facility] ([place])01-10-2023 Hospital Discharge instructions Patient Education 01/10/2023 17:43:53 [...] and water are not available, use alcohol-based entry level automotive technician to keep from spreading the infection to [...] Yellow color of the eyes or skin 7782-5369 [employer]. [address] [place] [address], [place] [address]. All rights reserved. This information is not [...] National Alcohol and Substance Abuse Information Center (799)-748-8830 www.E-Sign.Owlparrot National [place] on Alcoholism and Drug Dependence 965-141-5279 www.ncadd.org Marijuana Anonymous 115-928-9850 www.marijuana-anonymous.org When to seek medical advice Call your healthcare provider right away if any of these occur: You feel extreme depression, fear, anxiety, or anger toward yourself or others. You feel out of control. You feel that you may try to harm yourself or another. You experience chest pain or shortness of breath. 8029-9368 [employer]. [address] [place] [address]. All rights reserved. This information is not intended as a substitute for professional medical care. Always follow yourhealthcare professional's instructions. Follow Up Care 01/10/2023 13:44:57 With:Call Physician Referral Address:Unknown When:2-4 days [facility] 07-02-2023 Note Discharge Instructions Thank you for allowing [facility] to assist you with your healthcare needs. [...] may report side effects to FDA at 6-010-INN-2184. What other drugs will affect promethazine? Using promethazine with other drugs that make you drowsy can worsen this effect. Ask your doctor before using opioid medication, a sleeping pill, a muscle relaxer, or medicine for anxiety or seizures. Other drugs may affect promethazine, including prescription and circ-byp-kaqekkc medicines, vitamins, and herbal products. Tell your [...] to ensure that the information provided by [employer]. ('[employer]') is accurate, up-to-date, and complete, but no guarantee is made to that effect. Drug information contained herein may be time sensitive. [employer] information has been compiled for use by healthcare practitioners and consumers in the [place] and therefore [employer] does not warrant that uses outside of the [place] are appropriate, unless specifically indicated otherwise. [employer]'s drug information does not endorse drugs, diagnose patients or recommend therapy. [employer] drug information isan informational resource designed to [...] effective or appropriate for any given patient. [facility] does not assume any responsibility for any aspect of healthcare administered with the aid of information [facility] provides. The information contained herein is not intended to cover all possible uses, directions, precautions, warnings, drug interactions, allergic reactions, or adverse effects. If you have questions about the drugs you are taking, check with your doctor, nurse or pharmacist. Copyright 0186-0289 Terri [facility], [facility]. Version: 8.01. Revision Date: 08/06/2021. prochlorperazine (oral/injection) (pro klor PER a zeen) What is the most important information I [...] What is prochlorperazine? Prochlorperazine is a phenothiazine (YSOR-uz-HVAN-a-zeen) antipsychotic medicine that is used to treat [...] may report side effects to FDA at 6-699-WWN-9806. What other drugs will affect prochlorperazine? Using [...] may affect prochlorperazine. This includes prescription and kbpe-cds-wqpwmkk medicines, vitamins, and herbal products. Not all [...] to ensure that the information provided by [employer]') is accurate, up-to-date, and complete, but no guarantee is made to that effect. Drug information contained herein may be time sensitive. [employer]oka information has been compiled for use by healthcare practitioners and consumers in the [place] and therefore [employer] does not warrant that uses outside of the [place] are appropriate, unless specifically indicated otherwise. [employer]'s drug information does not endorse drugs, diagnose patients or recommend therapy. [employer] drug information isan informational resource designed to [...] effective or appropriate for any given patient. [facility] does not assume any responsibility for any aspect of healthcare administered with the aid of information [facility] provides. The information contained herein is not intended to cover all possible uses, directions, precautions, warnings, drug interactions, allergic reactions, or adverse effects. If you have questions about the drugs you are taking, check with your doctor, nurse or pharmacist. Copyright 2031-6298 Ter[facility]. Version: 12.. Revision Date: 11/03/2019. Education Materials [...] and water are not available, use alcohol-based entry level automotive technician to keep from spreading the infection to [...] Yellow color of the eyes or skin 2629-1077 [employer]. [address] [place] [address]. All rights reserved. This information is not [...] National Alcohol and Substance Abuse Information Center (937)-639-8016 www.addictioncareSplingions.com National [place] on Alcoholism and Drug Dependence 118-383-2921 www.ncadd.org Marijuana Anonymous 930-034-8800 www.marijuana-anonymous.org When to seek medical advice Call your healthcare provider right away if any of these occur: You feel extreme depression, fear, anxiety, or anger toward yourself or others. You feel out of control. You feel that you may try to harm yourself or another. You experience chest pain or shortness of breath. 0516-3996 [employer]. [address] [place] [address]. All rights reserved. This information is not intended as a substitute for professional medical care. Always follow yourhealthcare professional's instructions. Additional Information VACCINATE! IT SAVES LIVES! Members of the community who have not yet received the COVID-19 vaccine and would like to receive it can visit one of [facility] vaccine clinics. There are many vaccine clinic locations within the [facility]. For locations and available times, please visit www.gettheshot.coronavirus.[place].gov/. It is important to note that some COVID mobile vaccine clinics are held outdoors and may be canceled in rainy or stormy conditions. To learn more about pediatric vaccinations (ages 5-11), we invite you to visit the [employer] webpage. https://www.akronchildrens.org/pages/2275-Mhvwt-Kjqskbwrmut-Krathlzizk-Mgqdh-Hjz stions.htmlTo learn more about the COVID-19 vaccine, we invite you to visit the CDC website for a list of frequently asked questions. https://www.cdc.gov/coronavirus/2019-ncov/vaccines/faq.html [facility] [employer] Patient Portal Access Instructions: Stay connected with your healthcare team and access your personal medical information anytime with the [facility] Patient Portal. If you would like a full copy of your medical records please contact the [facility] Medical Records Department Wednesday through Wednesday between 8a.m. and 4:30p.m. Please follow the directions below to access the portal: 1.Access the email account you provided upon registration to the hospital.2.Look for an invitation email from [facility].3.Open the email and access the invitation link: Accept Invitation to [facility] [employer]4.Fill in the required joy to create your account. Sign into www.[employer] with your username and password that you [...] you will allow to register on the [employer] Patient Portal for access to your information. You can also access the [employer] Patient Portal on the [employer] della. Simply click on Health Records under Zookal and then click on the [employer] logo. HOW TO SAFELY DISPOSE OF PRESCRIPTION [...] Call your local pharmacy or go to [email or web address] [email or web address] to find one close to you.3.Make use of household items: Use cat litter or old coffee grounds to dispose medications if other options arenot available. Mix your drugs with these household products, seal them in an airtight container andthrow it into the garbage. Call [facility]: [phone] to be sure your drugs can be [...] aware that I should contact my doctor. Patient/Blade Grinder Signature: Date/Time: Relationship to Patient: Witness Name/Signature: Date/Time: [facility]07-02-2023 Note ORIGINAL EXAMINATION: CT OF THE [...] Sign Date: 01/10/2023 4:59:31 PM Ordering Provider: [place] [address]3785-02-2023 Note ORIGINAL EXAMINATION: CT OF THE ABDOMEN [...] Date: 01/10/2023 4:59:31 PM Ordering Provider: ESSIE [facility]07-02-2023 Evaluation + Plan note Diagnostic Tests Pending * Urine Culture 01/10/23 [facility] 06-29-2023 Discharge summary Author Poli Barfield [facility] January 07, 2023 2:08pm Note Date/Time January 07, 2023 8:55 am [facility] Medical Records Department [address] [place] [address] Emergency Department Summary 01/07/23 MR#: [id number] Acct: [id number] Name: GHISLAINE GIVENS Rep #:[id number] : 1990 32 From: Poli Farah PCP: [facility] atus:REG ER Location: ED HPI HPI - [...] clinician: N/A This note was generated with [employer] dictation software. It may contain incorrectwords, spelling, [...] % (Auto) 53.2 Lymph % (Auto) 38.5 Braxton % (Auto) 5.9 Eos % (Auto) 1.0 [...] Days Qty: 21 0RF Primary Care Provider: [facility] Sophy Santiago [facility] - 3-5 Days [...] your Primary Care Provider. Call [facility] ([phone]) or report to the closest Emergency Room. Call 911 if necessary. 01/07/23 1408 <Electronically signed by Poli Le DO> Cosigner Signature (if applicable): CC: [facility] ~ Signed [facility] Work Phone: 1(889) 810-262705-09-2023 History of Present illness Narrative* Andres Galaviz APRN.STRIP WINDER - 11/17/2022 8:45 AM EDT Images from [...] of care. This note was generated using [employer] software. It may contain errors in wording, punctuation, or spelling. Andres Galaviz APRN.SUZANNE documented in this encounterAs[facility]04-03-2023 Miscellaneous Notes* Telephone Encounter - Romana Garcia [...] ER if symptoms worsen. documented in this encounterAshtabula [facility] Center03-30-2023 History of Present illness Narrative* Shamika Goins PA-C - 10/08/2022 9:08 AM EDT Images from the original note were not included. This note was created using [facility]. Subjective Ghislaine Givens is a 32 year [...] tolerated it fine. Recommend she call her governor assembler today to be seen. Likely MRSA with [...] Z86.14 Shamika Goins PA-C documented in this encounterAshtabula County [facility] Center02-04-[address] Villatoro [facility] August 15, 2022 11:44am Note Date/Time August 15, 2022 1 1:38am [facility] Medical Records Department [address] [place] [address] Instructions for Home/Discharge Instructions 08/15/22 1132 MR#: [id number] Acct: [id number] Name: GHISLAINE GIVENS Rep #:[id number] : 1990 32 From: Lexus Villatoro MD [...] be sent to your preferred pharmacy, [facility] ?Please continue all other home medications -Please [...] Urbina MD; Dr. Sophy Gibbons ~ Signed [facility] Work Phone: 1(323) 933-997002-03-[address] Villatoro [facility] August 14, 2022 8:50am Note Date/Time August 14, 2022 8 :50am [facility] Medical Records Department [address] [place] [address] Progress Note - Hospitalist 08/14/22 0846 MR#: [id number] Acct: [id number] Name: GHISLAINE GIVENS Rep #:[id number] : 1990 32 From: Lexus Villatoro MD PCP: Dr. Sophy Gibbons Status:ADM IN Location: [place] [id number]- Subjective Subjective Irritable this morning, reports her [...] Neut % (Auto) 65.7, Lymph % (Auto)22.3, Braxton % (Auto) 8.6, Eos % (Auto) 0.6, [...] diabetes mellitus, hypertension, depression who presents to [facility] 08/12 with hyperglycemia andtachycardia. She was [...] from previous creatinine of 0.71 IV fluids 2/: Creatinine improved to 0.86 with fluids #DVT ppx: Low risk early ambulation recommended Lexus Villatoro MD Time spent in the patient's overall evaluation,decision-making process, review of diagnostic data, adjustment of management, discussion with other providers, nursing nursing and ancillary staff involved in patient's care documentation, 30Minutes Charges/Coding Visit Charges Inpatient E&M: 95668 Subs Hosp L2 08/14/22 0850 <Electronically signed by Lexus Villatoro MD> Cosigner Signature (if applicable): CC: ~ Signed [facility] Work Phone: 1(246) 953-930302-02-[address] Villatoro [facility] August 13, 2022 4:34pm Note Date/Time August 13, 2022 8 :40am [facility] Medical Records Department [address] [place] [address] Progress Note - Hospitalist 08/13/22 0832 MR#: [id number] Acct: [id number] Name: GHISLAINE GIVENS Rep #:[id number] : 1990 32 From: Lexus Villatoro MD PCP: Dr. Sophy Gibbons Status:ADM IN Location: [facility]- Subjective Subjective Reports slight cough which she [...] % (Auto) 69.8, Lymph % (Auto) 20.1, Braxton % (Auto) 8.7, Eos % (Auto) 0.1, [...] (MDRD) Non-Af 61, BUN/Creatinine Ratio 7.2 L, Gtcephg601 H, Calcium 9.6, Magnesium 1.6, Total Bilirubin 0.50, AST 20, ALT 13, Alkaline Phosphatase 136 H, Troponin I High Sens 6, Total Protein 9.2 H, Albumin2.9 L, Globulin 6.3 H, Albumin/Globulin Ratio 0.5 L 08/12/22 16:22: Acetone Level NEGATIVE 08/12/22 16:22: Urine Color Yellow, Urine Clarity Clear, Urine pH 6.0, Ur Specific Zephyr 1.010, Urine Protein 100 H, Urine Glucose [...] 71.0 H, Lymph % (Auto) 17.3 L, Braxton % (Auto) 9.7, Eos % (Auto) 0.2, Baso % (Auto) 0.5, Absolute Neuts (auto) 10.6 H, Absolute Lymphs (auto) 2.59, Nucleated RBC % 0 08/13/22 05:17: Sodium 134 L, Potassium 4.1, Chloride 102, Carbon Dioxide 22.0, Anion Gap 10, BUN 7, Creatinine 0.86, Estim Creat Clear Calc 89.54, Est GFR (MDRD) Af Amer 99, Est GFR (MDRD) Non-Af 82, BUN/Creatinine Ratio 8.1 L, Nynbgzi546 H, Calcium 8.6, Magnesium 2.2, Total Bilirubin [...] diabetes mellitus, hypertension, depression who presents to [facility] 08/12 with hyperglycemia andtachycardia. She was [...] on IV Rocephin and fluids Kidney ultrasound /: White blood cell count downtrending. Renal ultrasound [...] documentation, 40Minutes Charges/Coding Visit Charges Inpatient E&M: 73988 Subs Hosp L2 08/13/22 1634 <Electronically signed by Lexus Villatoro MD> Cosigner Signature (if applicable): CC: ~ Signed [facility] Work Phone: 1(973) 836-392102-02-[address] Christiansen [facility] August 12, 2022 10:42pm Note Date/Time August 12, 2022 3 :41pm [facility] Medical Records Department [address] [place] [address] Emergency Department Summary 08/12/22 MR#: [id number] Acct: [id number] Name: GIVENSGHISLAINE Rep #:[id number] : 1990 32 From: Alex Christiansen DO PCP: Dr. Sophy Gibbons Status:ADM IN Location: [place] [address] HPI History of Present Illness Chief Complaint: Hyperglycemia Narrative Narrative: 32-year-old female presenting with hyperglycemia. She states that [facility] and they were unable to check her blood sugar because they could not find a glucometer because she was tachycardic [facility] fear that [facility] might be [...] which is completely healing and doing well. [facility] Medical History (Updated 08/12/22 @ 21:20 by [...] % (Auto) 69.8 Lymph % (Auto) 20.1 Braxton % (Auto) 8.7 Eos % (Auto) 0.1 [...] Color Urine Clarity Urine pH Ur Specific Zephyr Urine Protein Urine Glucose (UA) Urine Ketones [...] (Auto) Neut % (Auto) Lymph % (Auto) Braxton % (Auto) Eos % (Auto) Baso % [...] Clarity Clear Urine pH 6.0 Ur Specific Zephyr 1.010 Urine Protein 100 H Urine Glucose [...] (Auto) Neut % (Auto) Lymph % (Auto) Braxton % (Auto) Eos % (Auto) Baso % [...] Color Urine Clarity Urine pH Ur Specific Zephyr Urine Protein Urine Glucose (UA) Urine Ketones [...] Discharge Plan Disposition Disposition: Acute Care Hospital [facility] Discharge Date/Time: 08/12/22 22:03 What to do if you have Problems For any increased pain, shortness of breath, bleeding, nausea or vomiting, chestpain, or any unexpected problems, contact your Primary Care Provider. Call [facility] ([phone]) or report to the closest Emergency Room. Call 911 if necessary. 08/12/222241 <Electronically signed by Alex Christiansen DO> Cosigner Signature (if applicable): CC: Dr. Sophy Gibbons ~ Signed [facility] Work Phone: 1(725) 798-651702-01-2023 History and physical note Author Dr. Urbina [facility] August 12, 2022 9:20pm Note Date/Time August 12, 2022 8 :09pm [facility] Medical Records Department [address] [place] [address] H&P Exam - Hospitalist 08/12/222008 MR#: [id number] Acct: [id number] Name: GHISLAINE GIVENSREBA Rep #:[id number] : 1990 32 From: Valencia Urbina MD PCP: Dr. Sophy Gibbons Status:ADM IN Location: [facility] [id number]- [id number] HPI - General General Date of Admission: 08/12/22 Date of Service: 08/12/22 Chief Complaint: Hyperglycemia, tachycardia HPI Narrative GHISLAINE GIVENS, is a 32 F who presents with the above. Patient has past medicalhistory of type II DM, recent discharge from the hospital on 06/29/22 for right diabetic foot infection status post right toe amputation. Patient was referred to the emergency room from [facility] for hyperglycemia and tachycardia. 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 Medical History (Updated 08/12/22 @ 21:20 by [...] % (Auto) 69.8, Lymph % (Auto) 20.1, Braxton % (Auto) 8.7, Eos % (Auto) 0.1, [...] (MDRD) Non-Af 61, BUN/Creatinine Ratio 7.2 L, Lmykezp850 H, Calcium 9.6, Magnesium 1.6, Total Bilirubin 0.50, AST 20, ALT 13, Alkaline Phosphatase 136 H, Troponin I High Sens 6, Total Protein 9.2 H, Albumin2.9 L, Globulin 6.3 H, Albumin/Globulin Ratio 0.5 L 08/12/22 16:22: Acetone Level NEGATIVE 08/12/22 16:22: Urine Color Yellow, Urine Clarity Clear, Urine pH 6.0, Ur Specific Zephyr 1.010, Urine Protein 100 H, Urine Glucose [...] room physician. Charges/Coding Visit Charges Inpatient E&M: 12218 Init Hosp L2 08/12/222119 <Electronically signed by Valencia Urbina MD> Cosigner Signature (if applicable): CC: Dr. Valencia Urbina MD; Dr. [facility] Gibbons~ Signed [facility] Work Phone: [phone]) 825-143609-12-2022 History of Present illness Narrative* Luis Mayes RT(R) - 03/23/2022 12:50 PM EDT Radiology [...] 23, 2022 1:00 PM documented [facility] History of Present illness Narrative* Sid Bravo [...] CORONAVIRUS Sid Bravo MD documented in this encounterAs[facility]07-25-2022 History of Present illness Narrative* Alyssa Jaime APRN.STRIP WINDER - 02/02/2022 9:56 AM EDT Subjective The history is provided by the patient. No eyelet machine operator was used. HPI Ghislaine Givens is a 32 year old female who presents today for CC of concerns that she was in ER and was not treated for a pneumonia seen on CAT scan. Patient over the past month has been seen in ED for vomiting and abdominal pain. She is seeing GI at [facility], was seen on Wednesday and call them this morning. She is scheduled for a scope. Multiple CT scans that are negative, however yesterday's revealed possible pneumonia, pneumonitis. She was concerned she was not treated. She denies fever, chills, back pain or cough. BP 120/72 Pulse 74 Temp 36.2 C (97.2 F) Resp 16 Wt 92.5 kg (204 lb) LMP 05/18/2021 FaR664% BMI 32.93 kg/m Social History Tobacco Use Smoking status: Current Every Day Smoker Packs/day: 0.50 Years: 3.00 Pack years: 1.50 Types: Cigarettes Smokeless tobacco: Never Used Substance Use Topics Alcohol use: Yes Comment: Seldom Drug use: No PAST MEDICAL HISTORY Diagnosis Date Bipolar 1 disorder (HCC) 2007 Depression Elevated BP 04/28/2013 Insomnia I have confirmed and edited as necessary, the [facility] Review of Systems Constitutional: Negative for chills, [...] for primary care, unable to get in [place] until May. - CONSULT TO PULM/CRITICAL CARE [...] were discussed indetail warranting prompt ER evaluation. Aylssa Jaime APRN.CNP Medical Decision Making: Problems: Moderate: New problem with uncertain prognosis Data: Assessment requiring an independent historian(s) Risk: Low: Low risk from testing/treatment Medical Decision Making Level: 3 - Low documented in this encounterAsht[facility]07-25-2022 Instructions* Patient Instructions* Alyssa Jaime APRN.CNP - 02/02/2022 9:52 AM EDT Will set up follow for primary care and pulmonology To ER for worsening symptoms, increased pain, fevers, vomiting, decreased urine output, blood in her urine blood in her stools or dark tarry stools. documented in this encounterAs[facility]11-04-2021 History of Present illness Narrative* Luis Mayes [...] 15, 2021 9:57 AM documented in this encounterAsht[facility]ula [facility]10-18-2013 History of Past illness Narrative* Problem Noted [...] of this encounter (statuses as of 02/02/2022) [facility] of [facility] illness Narrative* Problem Noted [...] of this encounter (statuses as of 03/23/2022) [facility] of Past illness Narrative* Problem Noted [...] of this encounter (statuses as of 10/08/2022) [facility] of [facility] illness Narrative* Problem Noted [...] of this encounter (statuses as of 10/12/2022) [facility] of [facility] illness Narrative* Problem Noted [...] of this encounter (statuses as of 11/17/2022) [facility] of [facility] illness Narrative* Problem Noted [...] of this encounter (statuses as of 02/04/2023) [facility] of [facility] Narrative* Problem Noted [...] of this encounter (statuses as of 02/24/2023) [facility] of [facility] illness Narrative* Problem Noted [...] of this encounter (statuses as of 03/02/2023) [facility] of [facility] illness Narrative* Problem Noted [...] of this encounter (statuses as of 03/02/2023) [facility] of [facility] illness Narrative* Problem Noted [...] of this encounter (statuses as of 03/09/2023) [facility] of [facility] Narrative* Problem Noted [...] of this encounter (statuses as of 03/10/2023) [facility] of [facility] illness Narrative* Problem Noted [...] of this encounter (statuses as of 03/12/2023) [facility] of [facility] Narrative* Problem Noted [...] of this encounter (statuses as of 03/26/2023) [facility] of [facility] Narrative* Problem Noted [...] of this encounter (statuses as of 04/16/2023) [facility] of [facility] illness Narrative* Problem Noted [...] of this encounter (statuses as of 07/02/2023) [facility] Author Rickey Gifford [facility] May 09, 2023 2:02pm Note Date/Time May 09, 2023 2 :02pm [facility] Medical Records Department [address] [place] [address] Discharge Summary 05/09/23 1354 MR#: [id number] Acct: [id number] Name: GHISLAINE GIVENS Rep #:[id number] : 1990 33 From: Rickey Gifford DO PCP: Care Physician,No Primary Status :ADM IN Location: [place] [address]-1 Providers Date of Admission: 05/04/23 Primary Care Physician: No Primary Care Phys Consultations 05/04/23 19:30 Consult: Onc/Wound/forging press setter up Routine Comment: Reason For Visit: RIGHT FOOT [...] mg rectal suppository (Dulcolax (bisacodyl)) 10 mg MA DAILY 3 days #12 ea 01/15/23 acetaminophen [...] to review data from outside hospitals including [facility] as well as [facility] and [place], [place]. Patient has had CAT scans, EGDs, [...] by some anxiety. Do recommend follow-up with [facility] provider. To be beneficial for you [...] [Dulcolax (bisacodyl)] 10 mg suppository 10 mg MA DAILY 3 Days Qty: 12 0RF Rx [...] [Primary Care Provider] - Amy Solorzano NP, LASER PRINT OPERATOR-C [Non-Staff -Ordering Privileges] - Within 2 Weeks Disposition Disposition (needs filled in before D/C Order can be placed): Home, Self Care Charges/Coding Visit Charges Inpatient E&M: 32244 Disch Hosp >30min 05/09/23 1402 <Electronically signed by Rickey Gifford DO> Cosigner Signature (if applicable): CC: YESY Forrest; LASER PRINT OPERATORPanC Amy Solorzano; Dr. Rickey Gifford DO; No Primary Care Physician~ Signed [facility] Work Phone: Discharge summary Author Gale Lr [facility] Note Date/Time November 28, 2024 12:31 pm [facility] Medical Records Department [address] [place] [address] Discharge Summary 11/28/24 1203 MR#: [id number] Acct: [id number] Name: GHISLAINE GIVENS Rep #:[id number] : 1990 34 From: Gale Lr DO PCP: BROOKLYN Warren, LASER PRINT OPERATOR-C Statu s:ADM IN Location: [facility] [id number] Providers Date of Admission: 11/25/24 Date of Discharge: 11/28/24 Primary Care Physician: Amy Solorzano, BROOKLYN, LASER PRINT OPERATOR-C Consultations 11/25/24 15:14 Consult: General Surgery Routine [...] who presented to the emergency department at [facility] on 11/25/2024 with a chief complaint [...] (Auto) 49.8, Lymph % (Auto) 43.0 H, Braxton % (Auto) 5.3, Eos % (Auto) 0.5, [...] as compared to prior study. Reading Location: [facility] D/C Instructions Discharge Diet: 1800 Calorie Control [...] Gale Lr Primary Care Provider: Amy Solorzano [facility] Consulting Providers: Annalise Welch; Brenda Rao Instructions [...] or tomorrow to set up appointment) Amy Soolrzano, LASER PRINT OPERATOR-C [Primary Care Provider] - In 1 Week Disposition Disposition (needs filled in before D/C Order can be placed): Home, Self Care Charges/Coding Visit Charges Inpatient E&M: 50688 Disch Hosp >30min 11/28/24 1231 <Electronically signed by Gale Lr DO> Cosigner Signature (if applicable): CC: BROKOLYN Solorzano; Dr. Gale Lr DO~ Signed [facility] Work Phone: Discharge summary Author Frantz Coulter [facility] Note Date/Time January 01, 2025 1:06 pm [facility] Medical Records Department [address] [place] [address] Instructions for Home/Discharge Instructions 01/01/25 1259 MR#: [id number] Acct: [id number] Name: GHISLAINE GIVENS Rep #:[id number] : 1990 34 From: Frantz Coulter DO PCP: BROOKLYN Warren, LASER PRINT OPERATOR-C Statu s:ADM IN Discharge Instructions Diet Discharge Diet: 1800 Calorie Control Diet DC O2, CPAP, BIPAP needs Home O2 Discharge instructions: No Dressing / Incision Discharge Activity: Return to Normal Activity Weight Bearing Status: Full weight bearing Follow Up Care Test Results: Test results from this visit will be discussed in further detail at your follow- up appointment, if applicable. Discharge Plan Admission Admit Date/Time: 12/31/24 22:59 Primary Reason for Your Visit: Uncontrolled nausea and vomiting Attending Provider: Frantz Coulter Primary Care Provider: Amy Solorzano Consulting Providers: Dewayne Grant Discharge Orders/Prescriptions Prescriptions: New promethazine 25 mg tablet 25 mg PO Q6H PRN (Reason: nausea and vomiting) Qty: 20 0RF Rx Instructions: 1 or 2 tabs every 6 hours as needed for nausea and vomiting Continued Linzess 145 mcg capsule 145 mcg PO QAM Qty: 30 2RF insulin glargine [Lantus Solostar U-100 Insulin] 100 unit/mL (3 mL) insulin pen 20 unit SUBCUT BID Patient Comments: PT HAS BEEN TAKING 35-40 UNITS TWICE DAILY albuterol sulfate 90 mcg/actuation HFA aerosol inhaler 2 puff INHALATION Q4H PRN (Reason: shortness of breath or wheezing) Trulicity 4.5 mg/0.5 mL pen injector 4.5 mg subcut SA Referrals / Follow Up: Amy Solorzano, LASER PRINT OPERATOR-C [Primary Care Provider] - Within 2 Weeks Disposition Disposition (needs filled in before D/C Order can be placed): Home, Self Care 01/01/25 1306<Electronically signed by Frantz Coulter DO>Frantz Coulter DO CC: BROOKLYN LASER PRINT OPERATOR-C mAy Solorzano; Dr. Dewayne Grant DO ~ Signed [facility] Work Phone: Discharge summary Author Frantz Coulter [facility] Note Date/Time January 01, 2025 1:34 pm [facility] Medical Records Department [address] [place] [address] Discharge Summary 01/01/25 1306 MR#: [id number] Acct: [id number] Name: GHISLAINE GIVENS Rep #:[id number] : 1990 34 From: Frantz Coulter DO PCP: BROOKLYN Warren, LASER PRINT OPERATORKaykay Statu s:ADM IN Location: ICU [id number] 3-1 Providers Date of Admission: 12/31/24 Date of Discharge: 01/01/25 Primary Care Physician: BROOKLYN Warren, LASER PRINT OPERATOR-C Reason For Visit: DKA, CYCLICAL N/V AND MEDICAL NONCOMPLIANCE Diagnosis Discharge Diagnosis (1) Diabetic ketoacidosis: Status: Acute Code(s): E11.10 - Type 2 diabetes mellitus with ketoacidosis without coma Qualifiers: Diabetes mellitus complication detail: without coma Diabetes mellitus type: type 2 Qualified Code(s): E11.10 - Type 2 diabetes mellitus with ketoacidosis without coma (2) Cyclic vomiting syndrome: Status: Acute Code(s): R11.15 - Cyclical vomiting syndrome unrelated to migraine (3) Cannabis abuse: Status: Acute Code(s): F12.10 - Cannabis abuse, uncomplicated (4) Medical non-compliance: Status: Acute Code(s): Z91.199 - Patient's noncompliance with other medical treatment and regimen due to unspecified reason (5) Depression with anxiety: Status: Acute Code(s): F41.8 - Other specified anxiety disorders (6) Borderline personality disorder: Status: Acute Code(s): F60.3 - Borderline personality disorder (7) Obesity (BMI 30-39.9): Status: Acute Code(s): E66.9 - Obesity, unspecified (8) Type 2 diabetes mellitus with peripheral neuropathy: Status: Acute Code(s): E11.42 - Type 2 diabetes mellitus with diabetic polyneuropathy Plan 1. Uncontrolled nausea and vomiting #2 uncontrolled type 2 diabetes #3 noncompliance with medical care Diabetic ketoacidosis was ruled out Medications at Discharge Home Medications insulin glargine 100 unit/mL (3 mL) subcutaneous pen (Lantus Solostar U-100 Insulin) 20 unit subcut BID diabetes 08/12/22 albuterol sulfate 90 mcg/actuation aerosol inhaler 2 puff inhalation Q4H PRN shortness of breath or wheezing 11/25/24 dulaglutide 4.5 mg/0.5 mL subcutaneous pen injector (Trulicity) 4.5 mg subcut SAdiabetes 11/25/24 linaclotide 145 mcg capsule (Linzess) 145 mcg PO QAM IBS #30 caps 12/13/24 promethazine 25 mg tablet 25 mg PO Q6H PRN nausea and vomiting #25 tabs 01/01/25 Hospital Course Operations None Procedures None Summary of Care Provided Minutes Spent on Discharge: 30 Hospital Course: This 34-year-old white female was seen in the emergency room at [facility] with complaints of uncontrolled nausea and vomiting and abdominal pain. She had left the hospital AGAINST MEDICAL ADVICE several hours earlier after being hospitalized for treatment of diabetic ketoacidosis. Labs obtained showed the patient's anion gap to be normal, glucose was elevated at 160, and beta hydroxy butyric acid was elevated at 0.6. Patient was felt to be in DKA, this examiner did not feel the patient met criteria for DKA. Patient was admitted to ICU, and insulin drip was written for the patient but never started, patient's repeat blood sugars trended upward slightly and then downward. Patient's anion gap was never abnormal. On 01/01/2025, patient had anepisode of nausea and vomiting and was given IM Phenergan in addition to Zofran,she was also given IV Nubain for abdominal pain. Patient's symptoms improved. On 01/01/2025, patient was seen and examined: On examination she appeared in goodhealth and spirits, she does not appear to be in any distress. Vital signs as documented. Skin warm and dry and without overt rashes. Neck without JVD, thyroid appears normal, trachea is midline, neck is supple. Lungs clear, normal air movement was noted. Heart exam notable for regular rhythm, normal sounds andabsence of murmurs, rubs or gallops. Abdomen unremarkable and without evidence of organomegaly, masses, or abdominal aortic enlargement, bowel sounds are present in all 4 quadrants, no abdominal tenderness was noted. Extremities nonedematous, no cyanosis was noted, no clubbing was noted. Neuro: Cranial nerves II through XII are grossly intact, no focal motor deficits were noted, sensation to light touch and pinprick is intact, motor exam 5/5 throughout. Psych: Patient is alert and oriented x3, she does not appear anxious or depressed, she does not appear agitated. Patient was discharged home in stable condition on 01/01/2025 Weight / BMI Weight Weight: 109.8 kg Body Mass Index (BMI) 38.9 ABG / Lab / Microbiology Data 12/31/24 19:30 01/01/25 07:45 Laboratory: Laboratory Results - last 24 hr 12/31/24 18:39: POC Glucose 140 H 12/31/24 19:30: WBC 9.9, RBC 4.53, Hgb 12.4, Hct 38.0, MCV 83.9, MCH 27.4, MCHC 32.6, RDW Std Deviation 43.4, RDW Coeff of John 14.3, Plt Count 400, MPV 9.5, Immature Gran % (Auto) 0.700, Neut % (Auto) 64.4, Lymph % (Auto) 27.7, Braxton % (Auto) 6.4, Eos % (Auto) 0.3, Baso % (Auto) 0.5, Absolute Neuts (auto) 6.4, Absolute Lymphs (auto) 2.74, Nucleated RBC % 0, Sodium 140, Potassium 3.8, Chloride 105, Carbon Dioxide 20.4 L, Anion Gap 15, BUN 7, Creatinine 0.99, EstimCreat Clear Calc 101.44, Est GFR (MDRD) Non-Af 77, BUN/Creatinine Ratio 7.1 L, Glucose 160 H, Calcium 9.1, b- Hydroxybutyric mmol/L 0.6 H, Urine Color Yellow, Urine Clarity Cloudy, Urine pH 6.0, Ur Specific Zephyr 1.020, Urine Protein 30 H, Urine Glucose (UA) Normal, Urine Ketones 5 H, Urine Occult Blood 25 H, Urine Nitrite Negative, Urine Bilirubin Negative, Urine Urobilinogen Normal, Ur Leukocyte Esterase 100 H, Urine RBC 0 SEEN, Urine WBC 0- 5 SEEN, Ur Squamous Epith Cells 0-5 SEEN, Urine Bacteria 3+, Urine Mucus 0 SEEN, Urine Test Negative 12/31/24 19:43: POC Glucose 152 H 12/31/24 21:20: Sodium 139, Potassium 3.7, Chloride 108, Carbon Dioxide 18.2 L, Anion Gap 13, BUN 7, Creatinine 0.85, Estim Creat Clear Calc 118.14, Est GFR (MDRD) Non-Af 93, BUN/Creatinine Ratio 8.0 L, Glucose 177 H, Calcium 8.2 12/31/24 21:35: POC Glucose 169 H 12/31/24 22:38: Magnesium 1.5, b-Hydroxybutyric mmol/L 0.5 H, TSH 0.649 12/31/24 23:09: POC Glucose 173 H 12/31/24 23:58: Sodium 139, Potassium 3.7, Chloride 108, Carbon Dioxide 19.1 L, Anion Gap 13, BUN 6, Creatinine 0.84, Estim Creat Clear Calc 120.61, Est GFR (MDRD) Non-Af 94, BUN/Creatinine Ratio 7.2 L, Glucose 189 H, Calcium 8.2 01/01/25 00:02: POC Glucose 179 H 01/01/25 01:07: POC Glucose 144 H 01/01/25 02:07: POC Glucose 134 H 01/01/25 03:01: POC Glucose 112 H 01/01/25 03:59: Sodium 141, Potassium 3.4, Chloride 109 H, Carbon Dioxide 20.4 L, Anion Gap 11, BUN 5, Creatinine 0.78, Estim Creat Clear Calc 129.95, Est GFR (MDRD) Non-Af 103, BUN/Creatinine Ratio 6.5 L, Glucose 71, Calcium 8.3 01/01/25 04:00: POC Glucose 62 L 01/01/25 04:36: POC Glucose 98 01/01/25 05:00: b-Hydroxybutyric mmol/L 0.0 01/01/25 05:31: POC Glucose 104 01/01/25 06:26: POC Glucose 110 H 01/01/25 07:45: Sodium 140, Potassium 3.9, Chloride 111 H, Carbon Dioxide 20.1 L, Anion Gap 9, BUN 5, Creatinine 0.76, Estim Creat Clear Calc 133.37, Est GFR (MDRD) Non-Af 107, BUN/Creatinine Ratio 6.1 L, Glucose 127 H, Calcium 7.9, POC Glucose 119 H 01/01/25 11:34: POC Glucose 113 H ABG: ABG 12/31/24 01/01/25 19:36 06:07 Specimen Type ESTRELLA ESTRELLA Sample Site Not entered Not entered O2 % 21.0 VBG pH 7.49 H 7.40 VBG pO2 22 L 53 H VBG HCO3 24 22 VBG Total CO2 25 23 VBG O2 Sat (Calc) 43 L 87 H VBG Base Excess 0 -3 L POC Mix VBG pCO2 Pt Tmp 30.7 L 35.7 L O2 Delivery Device Room Air Not entered D/C Instructions Discharge Diet: 1800 Calorie Control Diet Weight Bearing Status: Full weight bearing DC O2, CPAP, BIPAP Needs Home O2 [...] Simvastatin 80mg Discharge Plan Admission Admit Date/Time: 12/31/24 22:59 Primary Reason for Your Visit: Uncontrolled nausea and vomiting Attending Provider: Frantz Coulter Primary Care Provider: Amy Solorzano Consulting Providers: Dewayne Grant Discharge Orders/Prescriptions Prescriptions: New promethazine 25 mg tablet 25 mg PO Q6H PRN (Reason: nausea and vomiting) Qty: 25 0RF Rx Instructions: 1 or 2 every 6 hours as needed for nausea and vomiting Continued Linzess 145 mcg capsule 145 mcg PO QAM Qty: 30 2RF insulin glargine [Lantus Solostar U-100 Insulin] 100 unit/mL (3 mL) insulin pen 20 unit SUBCUT BID Patient Comments: PT HAS BEEN TAKING 35-40 UNITS TWICE DAILY albuterol sulfate 90 mcg/actuation HFA aerosol inhaler 2 puff INHALATION Q4H PRN (Reason: shortness of breath or wheezing) Trulicity 4.5 mg/0.5 mL pen injector 4.5 mg subcut SA Referrals / Follow Up: Amy Solorzano, LASER PRINT OPERATOR-C [Primary Care Provider] - Within 2 Weeks Disposition Disposition (needs filled in before D/C Order can be placed): Home, Self Care Charges/Coding Visit Charges Inpatient E&M: 51246 Disch Hosp 01/01/25 1334 <Electronically signed by Frantz Coulter DO> Cosigner Signature (if applicable): CC: BROOKLYN LASER PRINT OPERATORPanC Amy Solorzano; Dr. Frantz Coulter DO~ Signed [facility] Work Phone: evaluation noteNo assessment information available [facility] Work Phone: Evaluation note* Diagnosis Onset Date Resolution Status Abdominal pain acute [facility] Work Phone: Evaluation note* Diagnosis Abnormal lung scan- Primary Nonspecific abnormal results of pulmonary system function study Nausea and vomiting, unspecified vomiting type documented in this encounter [facility] note* Diagnosis Acute cough- Primary Mild intermittent asthmatic bronchitis without complication [facility] Diagnosis Onset Date Resolution Status Abdominal pain acute Encounter for pre-employment health screening examination acute [facility] Work Phone: Evaluation note* Diagnosis Onset Date Resolution Status Abdominal pain acute Encounter for pre-employment health screening examination acute Cellulitis of foot, right ac cher-ae heights Diabetes acute Diabetic foot infection acut e Leukocytosis acute [facility] Work Phone: Evaluation note* Diagnosis Onset Date Resolution Status Abdominal pain acute Encounter for pre-employment health screening examination acute Cellulitis and abscess of right lower extremity acute Cellulitis of foot, right ac cher-ae heights Diabetes acute Diabetes mellitus with diabetic polyneuropathy acute Diabetic foot infection acut e Leukocytosis acute Osteomyelitis acute Type 2 diabetes mellitus with foot ulcer acute 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 [facility] Work Phone: Evaluation note* Diagnosis Onset Date Resolution Status Cellulitis and abscess of right lower extremity acute Cellulitis of foot, right ac cher-ae heights Diabetes acute Diabetes mellitus with diabetic polyneuropathy [...] acut e Lactic acidosis acute Osteomyelitis acute [facility] Work Phone: Evaluation note* Diagnosis Onset Date Resolution Status Cellulitis and abscess of right lower extremity acute Cellulitis of foot, right ac cher-ae heights Diabetes acute Diabetes mellitus with diabetic polyneuropathy acute Diabetic foot infection acut e Leukocytosis acute Osteomyelitis acute Type 2 diabetes mellitus with foot ulcer acute 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 Cellulitis and abscess of right lower extremity acute Cellulitis of foot, right ac cher-ae heights Diabetes mellitus with diabetic polyneuropathy acute Diabetic foot infection acut e Lactic acidosis acute Osteomyelitis acute Type 2 diabetes mellitus with foot ulcer acute [facility] Work Phone: Evaluation note* Diagnosis Onset Date Resolution Status Cellulitis and abscess of right lower extremity acute Cellulitis of foot, right ac cher-ae heights Diabetic foot infection acut e Osteomyelitis acute Lactic acidosis resolved Acute pyelonephritis acute [facility] Work Phone: Evaluation note* Diagnosis Toe infection- Primary Unspecified local infection of skin and subcutaneous tissue Facial infection Other specified infectious and parasitic diseases History of MRSA infection Personal history of Methicillin resistant Staphylococcus aureus documented in this encounter [facility] note* Diagnosis Facial infection- Primary Other specified infectious and parasitic diseases documented in this encounter [facility] note* Diagnosis Onset Date Resolution Status Acute hypokalemia acute Cannabis abuse acute Diabetes acute Elevated serum creatinine ac cher-ae heights Failure of outpatient treatment acute Intractable nausea and vomiting acute [facility] Work Phone: Evaluation note* Diagnosis Onset Date Resolution Status Acute hypokalemia acute Cannabis abuse acute Diabetes acute Intractable nausea and vomiting acute [facility] Work Phone: Evaluation note* Diagnosis Nausea and vomiting, unspecified vomiting type- Primary Syncope and collapse documented in this encounter [facility] note* Diagnosis Generalized abdominal pain- Primary Abdominal pain, generalized documented in this encounter [facility] note* Diagnosis Chronic nausea- Primary Nausea alone Chronic abdominal pain Abdominal pain, unspecified site documented in this encounter [facility] note* Diagnosis Vomiting, unspecified vomiting type, unspecified whether nausea present- Primary Chronic nausea Nausea alone documented in this encounter [facility] note* Diagnosis Chronic abdominal pain- Primary Abdominal pain, unspecified site documented in this encounter [facility] note* Diagnosis SOB (shortness of breath)- Primary Shortness of breath Abdominal pain, unspecified abdominal location documented in this encounter [facility] note* Diagnosis Onset Date Resolution Status Acute hypokalemia acute Cannabis abuse acute Diabetes acute Intractable nausea and vomiting acute Diabetes acute Diabetic foot infection acut e Leukocytosis acute [facility] Work Phone: Evaluation note* Diagnosis Onset [...] right foot with fat layer exposed chronic [facility] Work Phone: Evaluation note* Diagnosis Onset Date Resolution Status Diabetic foot infection reso lved Gas gangrene resolved Leukocytosis resolved Non-pressure chronic ulcer o f other part of right foot with fat layer exposed resolved Tightness of right heel cord resolved [facility] Work Phone: Evaluation note* Diagnosis Pain of right eye- Primary Pain in or around eye [facility]* Diagnosis Onset Date Resolution Status Diabetic [...] right foot with fat layer exposed resolved [facility] Work Phone: Evaluation note* Diagnosis Onset Date Resolution Status Acute painful diabetic polyneuropathy acute Other acute osteomyelitis, right ankle and foot acute Non-pressure chronic ulcer o f other part of right foot with fat layer exposed resolved [facility] Work Phone: Evaluation note* Diagnosis Nausea- Primary Nausea alone [facility]* Diagnosis Type II or unspecified type diabetes mellitus without mention of complication, uncontrolled- Primary Morbid obesity with BMI of 40.0-44.9, adult ([facility]) Morbid obesity Elevated BP Elevated blood pressure reading without diagnosis of hypertension Acute cough Mild intermittent asthmatic bronchitis without complication documented in this encounter [facility] note* Diagnosis Type II or unspecified type diabetes mellitus without mention of complication, uncontrolled- Primary Morbid obesity with BMI of 40.0-44.9, adult ([facility]) Morbid obesity Elevated BP Elevated blood pressure reading without diagnosis of hypertension Cough documented in this encounter [facility] note* Diagnosis Type II or unspecified type diabetes mellitus without mention of complication, uncontrolled- Primary Morbid obesity with BMI of 40.0-44.9, adult (HCC) Morbid obesity Elevated BP Elevated blood pressure reading without diagnosis of hypertension Bronchopneumonia- Primary Bronchopneumonia, organism unspecified Mild intermittent asthma, uncomplicated Unspecified asthma documented in this encounter [facility] note* Diagnosis Type II or unspecified type diabetes mellitus without mention of complication, uncontrolled- Primary Morbid obesity with BMI of 40.0-44.9, adult ([facility]) Morbid obesity Elevated BP Elevated blood pressure reading without diagnosis of hypertension Acute cough- Primary Acute cough [facility] Type II or unspecified type diabetes mellitus without mention of complication, uncontrolled- Primary Morbid obesity with BMI of 40.0-44.9, adult (HCC) Morbid obesity Elevated BP Elevated blood pressure reading without diagnosis of hypertension Acute cough [facility] Diagnosis Onset Date Resolution Status Admit Date Acute proctitis acute November 25, 2024 1:38pm Colitis acute November 25, 2024 1:38pm Fecal impaction acute November 25, 2024 1:38pm [facility] Work Phone: History and physical note Author Dr. Urbina [facility] August 12, 2022 9:20pm Note Date/Time August 12, 2022 8 :09pm [facility] Medical Records Department [address] [place] [address] H&P Exam - Hospitalist 08/12/222008 MR#: [id number] Acct: [id number] Name: GHISLAINE GIVENS Rep #:[id number] : 1990 32 From: Valencia Urbina MD PCP: Dr. Sophy Gibbons Status:ADM IN Location: [facility] YOE301- 1 HPI - General General Date of Admission: 08/12/22 Date of Service: 08/12/22 Chief Complaint: Hyperglycemia, tachycardia HPI Narrative GHISLAINE GIVENS, is a 32 F who presents with the above. Patient has past medicalhistory of type II DM, recent discharge from the hospital on 06/29/22 for right diabetic foot infection status post right toe amputation. Patient was referred to the emergency room from [facility] for hyperglycemia and tachycardia. 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 [facility] Medical History (Updated 08/12/22 @ 21:20 by [...] % (Auto) 69.8, Lymph % (Auto) 20.1, Braxton % (Auto) 8.7, Eos % (Auto) 0.1, Baso % (Auto) 0.3, Absolute Neuts (auto) 13.2 H, Absolute Lymphs (auto) 3.81, Nucleated RBC % 0, Differential Comment SCANNED, Diff Path Review November/01/23 16:22: Sodium 130 L, Potassium 3.9, Chloride 95 L, Carbon Dioxide 23.0,Anion Gap 12, BUN 8, Creatinine 1.11 H, Estim Creat Clear Calc 69.38, Est GFR (MDRD) Af Amer 74, Est GFR (MDRD) Non-Af 61, BUN/Creatinine Ratio 7.2 L, [id number] H, Calcium 9.6, Magnesium 1.6, Total Bilirubin 0.50, AST 20, ALT 13, Alkaline Phosphatase 136 H, Troponin I High Sens 6, Total Protein 9.2 H, Albumin2.9 L, Globulin 6.3 H, Albumin/Globulin Ratio 0.5 L 08/12/22 16:22: Acetone Level NEGATIVE 08/12/22 16:22: Urine Color Yellow, Urine Clarity Clear, Urine pH 6.0, Ur Specific Zephyr 1.010, Urine Protein 100 H, Urine Glucose [...] room physician. Charges/Coding Visit Charges Inpatient E&M: 76366 Init Hosp L2 08/12/222119 <Electronically signed by Valencia Urbina MD> Cosigner Signature (if applicable): CC: Dr. Valencia Urbina MD; Dr. Sophy Gibbons~ Signed [facility] Work Phone: History and physical note Author David Bain [facility] Note Date/Time December 30, 2024 1:09 pm [facility] Medical Records Department [address] [place] [address] H&P Exam - Hospitalist 12/30/24 1248 MR#: [id number] Acct: [id number] Name: GHISLAINE GIVENS Rep #:[id number] : 1990 34 From: David Gupta PCP: BROOKLYN Warren, LASER PRINT OPERATOR-C Statu s:ADM IN Location: ICU CVICU20 3-1 HPI - General General Date of Admission: 12/30/24 Date of Service: 12/30/24 Chief Complaint: Patient has been vomiting, nausea and diffuse abdominal pain intermittently going on for 1 month but persistent for last 2 days HPI Brielle GIVENS, is a 34 F who was [...] DKA therefore admitted. Vitals in normal limit. [facility] Medical History Diabetes GERD (gastroesophageal reflux disease) [...] (Auto) 70.7 H, Lymph % (Auto) 23.6, Braxton % (Auto) 4.8, Eos % (Auto) 0.0, [...] Sl. Cloudy, Urine pH 5.0, Ur Specific Zephyr 1.025, Urine Protein 30 H, Urine Glucose [...] for 2 weeks. Weight loss counseling done. Chair Inspector And Leveler consult DVT prophylaxis, low risk: Early ambulation encouraged Living will/advanced directive/end of life care: Patient does not have living will or advanced directive. She does not have the year power of computer assistant for health. After discussion of benefits/risks procedures involved with full code,DNR CC arrest and DNR CC, the patient opted for full code. Patient does want artificial life support including intubation, tube feed, ventilator and/chest compression, central venous catheter, vasopressor and DC shock if needed Total time spent in [id number] encounter in discussion of advanced directive 17 minutes. Charges/Coding Visit Charges Inpatient E&M: 02818 Init Hosp L3 Procedures Hospitalists Procedures: 83540 Advncd Care Plan 30 Min 12/30/24 1309 <Electronically signed by David Bain MD> Cosigner Signature (if applicable): CC: BROOKLYN LASER PRINT OPERATORKaykay Solorzano; Dr. David Bain MD~ Signed [facility] Work Phone: Hospital course Narrative No data available for this section [facility] Discharge instructions Additional Instructions Avoid marijuana use. Use the capsaicin cream every 6 hours as needed. Medication prescribed to use as needed. Continue oral fluids at home for hydration. Follow-up with your doctor.[facility] Work Phone: Hospital Discharge instructions Additional Instructions Please decrease your marijuana use. Please maintain hydration, use antinausea medicine as needed.[facility] Work Phone: Hospital Discharge instructions Additional Instructions Please fill the prescriptions that were prescribed to you from [facility] to help control your nausea and vomiting. Based on their CAT scan showing potential gallbladder or fallopian tube issues please have the ultrasounds obtained that were ordered on an outpatient basis this evening. If you have any further concerns return [facility] the [facility] Hospital Discharge instructions Additional Instructions Your CT scan showed inflammation of the rectum consistent with acute proctitis. This can be secondary to infection or just inflammation but because of your diabetes and elevation of your white count take the antibiotic to resolve an infectious cause. If you have any further concerns please return for repeat [facility]WE[facility] Work Phone: Hospital Discharge instructions Additional Instructions I would recommend gentle massage of the tear duct. Warm compresses as discussed. I would highly encourage ophthalmologic follow-up. Monitor for worsening symptoms return if needed.[facility] Work Phone: Hospital Discharge instructions Additional [...] letting me be involved in your surgical care![facility] Work Phone: Reason for referral (narrative)* Diagnostic Procedure Only (Routine) - New Request Specialty Diagnoses / Procedures Referred By Ubaldo t Referred To Contact [facility] Diagnoses Nausea Procedures NM GASTRIC EMPTYING SOLID GASTRIC EMPTYING STUDY Almita Kelly PA-C [address] [id number] [facility] [address] [place] [address] Referral ID Status Reason Start Date Expiration Date Visits Requested Visits Authorized [id number] New Request Auto-Generat ed Referral 03/02/2023 03/31/2024 1 1 [facility] for referral (narrative)No reason for referral information availableWEast [facility] Work Phone: Chief Complaint and Reason [...] INFECTION DIABETIC FOOT INFECTION DIABETIC FOOT INFECTION ASSISTED LABWORK Reason for Visit Abdominal pain Encounter [...] INFECTION DIABETIC FOOT INFECTION DIABETIC FOOT INFECTION ASSISTED LABWORK ASSISTED LAB WORK Reason for Visit Abdominal pain [...] INFECTION DIABETIC FOOT INFECTION DIABETIC FOOT INFECTION ASSISTED LABWORK ASSISTED LAB WORK ASSISTED LABWORK CMP/CBC Reason for Visit Abdominal pain [...] INFECTION DIABETIC FOOT INFECTION DIABETIC FOOT INFECTION ASSISTED LABWORK ASSISTED LAB WORK ASSISTED LABWORK CMP/CBC DIABETIC FOOT ULCER Reason for [...] INFECTION DIABETIC FOOT INFECTION DIABETIC FOOT INFECTION ASSISTED LABWORK ASSISTED LAB WORK ASSISTED LABWORK CMP/CBC DIABETIC FOOT ULCER Reason for [...] INFECTION DIABETIC FOOT INFECTION DIABETIC FOOT INFECTION ASSISTED LABWORK ASSISTED LAB WORK ASSISTED LABWORK CMP/CBC DIABETIC FOOT ULCER DIAULCER DIAULCER [...] diabetes mellitus with foot ulcer Chief Complaint ASSISTED LABWORK CMP/CBC DIABETIC FOOT ULCER DIAULCER DIAULCER DIAULCER DIAULCER DIAULCER ACUTE PYELONEPHRITIS ACUTE PYELONEPHRITIS Reason for Visit Cellulitis and absce ss of right lower extremity Cellulitis of foot, right Diabetic foot infection Osteomyelitis Lactic acidosis Acute pyelonephritis Chief Complaint ASSISTED LABWORK CMP/CBC DIABETIC FOOT ULCER DIAULCER DIAULCER [...] 8pm DKA December 30, 2024 12:4 8pm Chief Complaint Admit Date PVD, BILAT LEG [...] 8pm DKA December 30, 2024 12:4 8pm DKA December 31, 2024 8:57 am DKA, CYCLICAL N/V AND MEDICAL NONCOMPLIA NCE December 31, 2024 10:59pm Reason for Visit Admit Date Abdominal pain [...] Diabetic ketoacidosis December 30, 2024 12 :28pm Cannabis abuse December 31, 2024 10:5 9pm Cyclic vomiting syndrome December 31, 2024 10:59pm Diabetic ketoacidosis December 31, 2024 10 :59pm Medical non-compliance December 31, 2024 1 0:59pm Obesity (BMI 30-39.9) December 31, 2024 10 :59pm Type 2 diabetes mellitus with peripheral neuropathy December 31, 2024 10:59pm Chief Complaint Admit Date PVD, BILAT LEG [...] 8pm DKA December 30, 2024 12:4 8pm DKA December 31, 2024 8:57 am DKA, CYCLICAL N/V AND MEDICAL NONCOMPLIA NCE December 31, 2024 10:59pm DKA, CYCLICAL N/V AND MEDICAL NONCOMPLIA NCE January 01, 2025 1:06pm Reason for Visit Admit Date Abdominal pain [...] Diabetic ketoacidosis December 30, 2024 12 :28pm Borderline personality disorder December 10:59pm Cannabis abuse December 31, 2024 10:5 9pm Cyclic vomiting syndrome December 31, 2024 10:59pm Depression with anxiety December 31, 2024 10:59pm Diabetic ketoacidosis December 31, 2024 10 :59pm Medical non-compliance December 31, 2024 1 0:59pm Obesity (BMI 30-39.9) December 31, 2024 10 :59pm Type 2 diabetes mellitus with peripheral neuropathy December 31, 2024 10:59pm Advance Directives No Advanced Directives Records Found Advance Directive Response Recorded Date/ Time Living Will No October 24, 2021 8:30am Power of Career Portals Teacher No October 24 8:30am Advance Directive Response Recorded Date/ Time Living Will No October 29, 2021 9:39am Power of Career Portals Teacher No October 29 9:39am Advance Directive Response Recorded Date/ Time Living Will No November 16, 2021 8: 50am Power of Career Portals Teacher No November 16, 2021 8:50am Advance Directive Response Recorded Date/ Time Living Will No January 16, 2022 2 :46pm Power of Career Portals Teacher No January 16, 2022 2:46pm Advance Directive Response Recorded Date/ Time Living Will No January 22, 2022 9:41pm Power of Career Portals Teacher No January 22 9:41pm Advance Directive Response Recorded Date/ Time Living Will No January 23, 2022 4:29pm Power of Career Portals Teacher No January 23 4:29pm Advance Directive Response Recorded Date/ Time Living Will No January 26, 2022 12:34pm Power of Career Portals Teacher No January 26 12:34pm Advance Directive Response Recorded Date/ Time Living Will No February 01, 2022 1:07pm Power of Career Portals Teacher No February 01 1:07pm Advance Directive Response Recorded Date/ Time Living Will No April 05, 2022 11:53am Power of Career Portals Teacher No March 11:53am Advance Directive Response Recorded Date/ Time Living Will No April 06, 2022 12:58pm Power of Career Portals Teacher No March 12:58pm Advance Directive Response Recorded Date/ Time Living Will No April 06, 2022 4:07pm Power of Career Portals Teacher No March 4:07pm Advance Directive Response Recorded Date/ Time Living Will No June 24 3:40pm Power of Career Portals Teacher No June 24, 2022 3:40pm Advance Directive Response Recorded Date/ Time Living Will No August 12 5:35pm Power of Career Portals Teacher No August 12, 2022 5:35pm Advance Directive Response Recorded Date/ Time Living Will No August 12 10:55pm Power of Career Portals Teacher No August 12, 2022 10:55pm Advance Directive Response Recorded Date/ Time Living Will No January 07, 2023 8:51am Power of Career Portals Teacher No January 07 8:51am Advance Directive Response Recorded Date/ Time Living Will No January 09, 2023 1 2:00pm Power of Career Portals Teacher No January 09, 2023 12:00pm Advance Directive Response Recorded Date/ Time Living Will No January 12, 2023 1 2:39am Power of Career Portals Teacher No January 12, 2023 12:39am Advance Directive Response Recorded Date/ Time Living Will No January 12, 2023 1 2:53pm Power of Career Portals Teacher No January 12, 2023 12:53pm Advance Directive Response Recorded Date/ Time Living Will No January 14, 2023 4 :21pm Power of Career Portals Teacher No January 14, 2023 4:21pm Advance Directive Response Recorded Date/ Time Living Will No January 25, 2023 11:41am Power of Career Portals Teacher No January 25 11:41am Advance Directive Response Recorded Date/ Time Living Will No February 08, 2023 12:35pm Power of Career Portals Teacher No February 08 12:35pm Latest Code Status on File Code Status Date Activated Date Inactivated Comments Full Code 02/18/2023 1:58 AM 02/20/2023 4:13 PM Question Answer Comments Full Code Order Discussed With: Patient Advance Directive Response Recorded Date/ Time Living Will No February 26 12:10am Power of Career Portals Teacher No February 26, 2 023 12:10am Latest [...] Will No March 06 8:38am Power of Career Portals Teacher No March 06, 2 023 8:38am Latest [...] Will No May 04 12:14pm Power of Career Portals Teacher No May 04, 2023 12:14pm Advance Directive Response Recorded Date/ Time Living Will No May 04 6:42pm Power of Career Portals Teacher No May 04, 2023 6:42pm Advance Directive Response Recorded Date/ Time Living Will No May 04 5:42pm Power of Career Portals Teacher No May 04, 2023 5:42pm Advance Directive Response Recorded Date/ Time Living Will No June 28, 2 023 9:27am Power of Career Portals Teacher No June 28, 2023 9:27am Advance Directive Response Recorded Date/ Time Living Will No July 02 023 9:33am Power of Career Portals Teacher No July 02, 2023 9:33am Advance Directive Response Recorded Date/ Time Living Will No July 16 9:15am Power of Career Portals Teacher No July 16, 2 024 9:15am Advance Directive Response Recorded Date/ Time Living Will No July 16 10:15am Power of Career Portals Teacher No July 16 2 024 10:15am Date Activated Date Inactivated [...] Recorded Date/ Time Living Will No June 25 9:33am Power of Career Portals Teacher No June 25, 2023 9:33am Advance Directive Response Recorded Date/ Time Living Will No June 26, 023 12:21pm Power of Career Portals Teacher No June 26, 2023 12:21pm Advance Directive Response Recorded Date/ Time Living Will No June 27, 2 023 5:53am Power of Career Portals Teacher No June 27, 2023 5:53am Advance Directive Response Recorded Date/ Time Do you have a Healthcare Power of Career Portals Teacher? No November 25, 2024 8:56am Advance Directive Response Recorded Date/ Time Do you have a Healthcare Power of Career Portals Teacher? No November 25, 2024 2:54pm Advance Directive Response Recorded Date/ Time Do you have a Healthcare Power of Career Portals Teacher? No November 25, 2024 2:54pm Do you have a Healthcare Power of Career Portals Teacher? No December 30, 2024 10:23am Advance Directive Response Recorded Date/ Time Do you have a Healthcare Power of Career Portals Teacher? No November 25, 2024 2:54pm Do you have a Healthcare Power of Career Portals Teacher? No December 30, 2024 1:37pm Advance Directive Response Recorded Date/ Time Do you have a Healthcare Power of Career Portals Teacher? No November 25, 2024 2:54pm Do you have a Healthcare Power of Career Portals Teacher? No December 30, 2024 1:37pm Do you have a Healthcare Power of Career Portals Teacher? No December 31, 2024 7:36pm Advance Directive Response Recorded Date/ Time Do you have a Healthcare Power of Career Portals Teacher? No November 25, 2024 2:54pm Do you have a Healthcare Power of Career Portals Teacher? No December 30, 2024 1:37pm Do you have a Healthcare Power of Career Portals Teacher? No December 31, 2024 11:46pm Family History No Family History Records Found [...] scan Procedures CONSULT TO PULM/CRITICAL CARE OFFICE/OUTPATIENT [facility] 60-74 MINUTES Alyssa Jaime, ROSA.STRIP WINDER [address] [place] [address] Referral ID Status Reason Start Date Expiration Date Visits Requested Visits Authorized [id number] Authorized PCP Requested Referral 02/02/2022 02/02/2023 1 1 Specialty Diagnoses / Procedures Referred By Contac t Referred To Contact Pain Management Diagnoses Chronic abdominal pain Procedures CONSULT TO PAIN MGT OFFICE/OUTPATIENT [facility] 60-74 MINUTES Pilar Magdaleno APRN.STR[employer] [address] [place] [address] Referral ID Status Reason Start Date Expiration Date Visits Requested Visits Authorized [id number] Authorized PCP Requested Referral 02/23/2023 02/23/2024 1 1 Specialty Diagnoses / Procedures Referred By Contdarci t Referred To Contact Gastroenterology Diagnoses Chronic nausea Procedures CONSULT TO GASTROENTEROLOGY OFFICE/OUTPATIENT [facility] 60-74 MINUTES Pilar Magdaleno APRN.STRIP WINDER [address] [place] [address] Referral ID Status Reason Start Date Expiration Date Visits Requested Visits Authorized [id number] Authorized PCP Requested Referral 02/23/2023 02/23/2024 1 1 Referral ID Status Reason Start Date Expiration Date Visits Requested Visits Authorized [id number] Authorized PCP Requested Referral 03/12/2023 03/11/2024 1 [...] or prosecute any alcohol or drug abuse patient.[facility] the event this information is protected by the Federal Confidentiality of Alcohol and Drug Abuse Patient Records regulations: The Federal rules restrict any use of the information to criminally investigate or prosecute any alcohol or drug abuse patient.[facility] Center[facility] the event this information is protected by the Federal Confidentiality of Alcohol and Drug Abuse Patient Records regulations: The Federal rules restrict any use of the information to criminally investigate or prosecute any alcohol or drug abuse patient.[facility] Center[facility] the event this information is protected by the Federal Confidentiality of Alcohol and Drug Abuse Patient Records regulations: The Federal rules restrict any use of the information to criminally investigate or prosecute any alcohol or drug abuse patient.[facility] CenterIn the event this information is protected by the Federal Confidentiality of Alcohol and Drug Abuse Patient Records regulations: The Federal rules restrict any use of the information to criminally investigate or prosecute any alcohol or drug abuse patient.[facility] CenterIn the event this information is protected by the Federal Confidentiality of Alcohol and Drug Abuse Patient Records regulations: The Federal rules restrict any use of the information to criminally investigate or prosecute any alcohol or drug abuse patient.[facility] CenterIn the event this information is protected by the Federal Confidentiality of Alcohol and Drug Abuse Patient Records regulations: The Federal rules restrict any use of the information to criminally investigate or prosecute any alcohol or drug abuse patient.[facility] CenterIn the event this information is protected by the Federal Confidentiality of Alcohol and Drug Abuse Patient Records regulations: The Federal rules restrict any use of the information to criminally investigate or prosecute any alcohol or drug abuse patient.[facility] CenterIn the event this information is protected by the Federal Confidentiality of Alcohol and Drug Abuse Patient Records regulations: The Federal rules restrict any use of the information to criminally investigate or prosecute any alcohol or drug abuse patient.[facility] CenterIn the event this information is protected by the Federal Confidentiality of Alcohol and Drug Abuse Patient Records regulations: The Federal rules restrict any use of the information to criminally investigate or prosecute any alcohol or drug abuse patient.[facility] CenterIn the event this information is protected by the Federal Confidentiality of Alcohol and Drug Abuse Patient Records regulations: The Federal rules restrict any use of the information to criminally investigate or prosecute any alcohol or drug abuse patient.[facility] CenterIn the event this information is protected by the Federal Confidentiality of Alcohol and Drug Abuse Patient Records regulations: The Federal rules restrict any use of the information to criminally investigate or prosecute any alcohol or drug abuse patient.[facility] CenterIn the event this information is protected by the Federal Confidentiality of Alcohol and Drug Abuse Patient Records regulations: The Federal rules restrict any use of the information to criminally investigate or prosecute any alcohol or drug abuse patient.[facility] CenterIn the event this information is protected by the Federal Confidentiality of Alcohol and Drug Abuse Patient Records regulations: The Federal rules restrict any use of the information to criminally investigate or prosecute any alcohol or drug abuse patient.[facility] CenterIn the event this information is protected by the Federal Confidentiality of Alcohol and Drug Abuse Patient Records regulations: The Federal rules restrict any use of the information to criminally investigate or prosecute any alcohol or drug abuse patient.[facility] CenterIn the event this information is protected by the Federal Confidentiality of Alcohol and Drug Abuse Patient Records regulations: The Federal rules restrict any use of the information to criminally investigate or prosecute any alcohol or drug abuse patient.[facility] CenterIn the event this information is protected by the Federal Confidentiality of Alcohol and Drug Abuse Patient Records regulations: The Federal rules restrict any use of the information to criminally investigate or prosecute any alcohol or drug abuse patient.[facility] CenterIn the event this information is protected by the Federal Confidentiality of Alcohol and Drug Abuse Patient Records regulations: The Federal rules restrict any use of the information to criminally investigate or prosecute any alcohol or drug abuse patient.[facility] CenterIn the event this information is protected by the Federal Confidentiality of Alcohol and Drug Abuse Patient Records regulations: The Federal rules restrict any use of the information to criminally investigate or prosecute any alcohol or drug abuse patient.[facility] CenterIn the event this information is protected by the Federal Confidentiality of Alcohol and Drug Abuse Patient Records regulations: The Federal rules restrict any use of the information to criminally investigate or prosecute any alcohol or drug abuse patient.[facility] CenterIn the event this information is protected by the Federal Confidentiality of Alcohol and Drug Abuse Patient Records regulations: The Federal rules restrict any use of the information to criminally investigate or prosecute any alcohol or drug abuse patient.[facility] Reason for Visit (unrecogniz ed section and [...] vomiting Specialty Diagnoses / Procedures Referred By Contac t Referred To Contact Gastroenterology Diagnoses Chronic nausea Procedures CONSULT TO GASTROENTEROLOGY OFFICE/OUTPATIENT [facility] 60-74 MINUTES Pilar Magdaleno APRN.STRIP WINDER [address] [place] [address] Referral ID Status Reason Start Date Expiration Date V isits Requested Visits Authorized [id number] Closed PCP Requested Referral 02/23/2023 02/23/2024 1 [...] Physician Primary Care Provider Active Dr. Andres Mtaias DPM Attending Provider, Referrin g Provider Active [...] Dr. Lexus Villatoro MD Attending Provider Active [employer] Relationship Specialty Start Date End Date Amy Solorzano, LASER PRINT OPERATOR [address] [place] [address] PCP - General Family Medicine 11/17/22 Team Status: Active Member Role Status Dates Dr. Esther Cooney MD Family Provider Active [facility] Primary Care Provider A ctive Team Status: Inactive Member Role Status [facility]ates [facility] Active Dr. Tim Vidal DO Attending Provider, Emergency P tala Active Team Status: Active Member Role Status Dates [facility] Primary Care Provider A ctive Amy Solorzano LASER PRINT OPERATOR, LASER PRINT OPERATOR-C Attending Provider, Referchi [facility] g Provider Active Team Status: Inactive Member Role Status Dates [facility] Primary Care Provider A ctive Dr. Poli Barfield DO Emergency Provider Active Team Status: Inactive Member Role Status Dates [facility] Primary Care Provider A ctive Dr. Deann Guerrero MD Emergency Provider Active Team Status: Inactive Member Role Status Dates [facility] Primary Care Provider A ctive Dr. Perico Norman DO Emergency Provider Active Team Status: Inactive Member Role Status Dates [facility] Primary Care Provider A ctive Dr. Fabricio Guevara MD Emergency Provider Active Team Status: Active Member Role Status Dates [facility] Primary Care Provider A ctive Dr. Willie Dhillon MD Emergency Provider Active Dr. Lexus Villatoro MD Admit Provider, At tending Provider, Other Provider Active Team Status: Inactive Member Role Status Dates [facility] Primary Care Provider A ctive Dr. Willie Dhillon MD Emergency Provider Active Dr. Lexus Villatoro MD Admit Provider, Attending Provid er Active Team Status: Inactive Member Role Status Dates [facility] Primary Care Provider A ctive Dr. Poli Barfield DO Attending Provider, Emergency Provide r Active Team Status: Inactive Member Role Status Dates [facility] Primary Care Provider A ctive Dr. Deann Guerrero MD Attending Provider, Emergency Provider Active Team Status: Inactive Member Role Status Dates [facility] Primary Care Provider A ctive Amy Solorzano LASER PRINT OPERATOR, LASER PRINT OPERATOR-C Attending Provider, Referrin g Provider Active Team Status: Inactive Member Role Status Dates [facility] Primary Care Provider A ctive Dr. Perico Norman , DO Attending Provider, Emergency Pr ovider Active Team Status: Inactive Member Role Status Dates [facility] Primary Care Provider A ctive Dr. Fabricio Guevara MD Attending Provider, Emergency Pro vider Active [employer] Relationship Specialty Start Date End Date Amy Solorzano [address] [place] [phone] PCP - General 01/24/23 [employer] Relationship Specialty Start Date End Date Amy Solorzano NP [address] [place] [address] PCP - General Family Medicine 11/17/22 Team Status: Inactive Member Role Status Dates [facility] Primary Care Provider A ctive Dr. Javy Doss , Emergency Provider Active [employer] Relationship Specialty Start Date End Date Amy Solorzano NP [address] [place] [address] PCP - General Family Medicine 11/17/22 Team Status: Inactive Member Role Status Dates [facility] Primary Care Provider A ctive Dr. Javy Doss , Attending Provider, Emergency Pro vider Active Team Status: Inactive Member Role Status Dates [facility] Primary Care Provider A ctive Dr. Tim Vidal , DO Emergency Provider Active [employer] Relationship Specialty Start Date End Date Amy Solorzano NP [address] [place] [address] PCP - General Family Medicine 11/17/22 [employer] Relationship Specialty Start Date End Date Amy Solorzano NP [address] [place] [address] PCP - General Family Medicine 11/17/22 Team Status: Inactive Member Role Status Dates [facility] Primary Care Provider A ctive Dr. Tim Vidal , DO Attending Provider, Emergency Chuckie edgar Active Team Status: Inactive Member Role Status [facility] Primary Care Provider A ctive Dr. Rickey Shepard , DO Emergency Provider Active [employer] Relationship Specialty Start Date End Date Amy Solorzano, LASER PRINT OPERATOR [address] [place] [address] PCP - General Family Medicine 11/17/22 [employer] Relationship Specialty Start Date End Date Amy Solorzano, LASER PRINT OPERATOR [address] [place] [address] PCP - General Family Medicine 11/17/22 [employer] Relationship Specialty Start Date End Date Amy Solorzano LASER PRINT OPERATOR [address] [place] [address] PCP - General Family Medicine 11/17/22 [employer] Relationship Specialty Start Date End Date Amy Solorzano LASER PRINT OPERATOR [address] [place] [address] PCP - General Family Medicine 11/17/22 Team Status: Active Member Role Status Dr. Esther Cooney MD Family Provider Active [...] Dr. Javy Doss DO Emergency Provider Active [employer]IL[employer] Small[employer] Attending Provider Active Team Status: Inactive Member Role Status Dates [facility] Primary Care Provider A ctive Dr. Rickey Shepard , DO Attending Provider, Emergency P rovider Active Team Status: Inactive Member Role Status Dates Dr. Poli Barfield , DO Attending Provider, Emergency Provide r Active No Primary Care Physician Primary Care Provider Active Team Status: Active Member Role Status Dates No Primary Care Physician Primary Care Provider Active Dr. Javy Doss DO Emergency Provider Active Dr. Abdirizak Forrest , DPM Other Provider Active Dr. Rickey Gifford DO Admit Provider, At tending Provider, Other Provider Active Team Status: Active Member Role Status Dates No Primary Care Physician Primary Care Provider Active Dr. Javy Doss DO Emergency Provider Active Dr. Abdirizak Forrest , DPM Other Provider Active Dr. Rickey Gifford , Admit Provider, At tending Provider, Referring Provider, Other Provider Active Team Status: Inactive Member Role Status Dates No Primary Care Physician Primary Care Provider Active Dr. Javy Doss DO Emergency Provider Active Dr. Abdirizak Forrest , DPM Other Provider Active Dr. Rickey Gifford DO Admit Provider, At tending Provider, Referring Provider Active Team Status: Inactive Member Role Status Dates No Primary Care Physician Primary Care Provider Active Dr. Abdirizak Forrest , DPM Attending Provider Active Team Status: Inactive [...] Dr. Alex Christiansen DO Emergency Provider Active [employer] Relationship Specialty Start Date End Date Amy Soolrzano NP [address] [place] [phone] PCP - General Family Medicine 11/17/22 Team [...] Dr. Tesfaye Mitchell DO Emergency Provider Active [facility] Primary Care Provider A ctive Team Status: Inactive Member Role Status Dates Dr. Abdirizak Forrest DPM Attending Provider, Referring Provider Active [facility] Primary Care Provider A ctive Team Status: Inactive Member Role Status Dates Dr. Sophy Gibbons Primary Care Provider Active Drew Hinson MD Attending Provider, Emergency Provid er Active Team Status: Inactive Member Role Status Dates Dr. Tesfaye Mitchell DO Attending Provider, Emergency P rovider Active [facility] Primary Care Provider A ctive Team Status: Inactive Member Role Status Dates [facility] Primary Care Provider A ctive Dr. Willie Dhillon MD Attending Provider, Emergency Provider Active Team Status: Inactive Member Role Status Dates [facility] Primary Care Provider A ctive [employer] Attending Provider, Referring Provider Active [employer] Relationship Specialty Start Date End Date Amy Solorzano NP [facility] [place] [phone] PCP - General Family Medicine 11/17/22 [employer] Relationship Specialty Start Date End Date Amy Solorzano NP [facility] [place] [phone] PCP - General Family Medicine 11/17/22 [employer] Relationship Specialty Start Date End Date Amy Solorzano NP [address] [place] [phone] PCP - General Family Medicine 11/17/22 [employer] Relationship Specialty Start Date End Date Amy Solorzano NP [address] [place] [phone] PCP - General Family Medicine 11/17/22 Team Status: Active Member Role Status Dates Amy BARAHONA, LASER PRINT OPERATOR-C Primary Care Provider Activ e Team Status: Inactive Member Role Status Dates Amy BARAHONA, LASER PRINT OPERATOR-C Primary Care Provider Activ e Start: October 17, 2024 End: October 17, 2024 Amy BARAHONA, LASER PRINT OPERATOR-C Attending Provider Active Start: October 17, 2024 End: October 17, 2024 Team Status: Inactive Member Role Status Dates Amy BARAHONA, LASER PRINT OPERATOR-C Primary Care Provider Activ e Start: October 25, 2024 End: October 25, 2024 Dr. Abdirizak Forrest DPM Attending Provider Active Start: October 25, 2024 End: October 25, 2024 Dr. Abdirizak Forrest DPM Referring Provider Active Start: October 25, 2024 End: October 25, 2024 Team Status: Active Member Role Status Dates Amy BARAHONA, LASER PRINT OPERATOR-C Primary Care Provider Activ e Start: November 25, 2024 Drew Hinson MD Emergency Provider Active Star t: November 25, 2024 Dr. Brenda Rao MD Admit Provider Active St art: November 25, 2024 Dr. Brenda Rao MD Attending Provider Active Start: November 25, 2024 Team Status: Inactive Member Role Status Dates Amy BARAHONA, LASER PRINT OPERATOR-C Primary Care Provider Activ e Start: November [...] Active Member Role Status Dates Amy BARAHONA, LASER PRINT OPERATOR-C Primary Care Provider Activ e Start: November [...] Active Member Role Status Dates Amy Solorzano [facility], LASER PRINT OPERATOR-C Primary Care Provider Activ e Start: November [...] Status: Active Member Role Status Dates Amy EDWARDS, LASER PRINT OPERATOR-C Primary Care Provider Activ e Start: November [...] Status: Active Member Role Status Dates Amy EDWARDS, LASER PRINT OPERATOR-C Primary Care Provider Activ e Start: November 27, 2024 Drew Hinson MD Emergency Provider Active Star t: November 27, 2024 Dr. Brenda Rao MD Admit Provider Active St art: November 27, 2024 Dr. Brenda Rao MD Other Provider Active St art: November 27, 2024 Dr. Annalise Welch MD Other Provider Active S tart: November 27, 2024 Dr. Gale Lr , Attending Provider Active S tart: November 27, 2024 Dr. Gale Lr , DO Other Provider Active Start : November 27, 2024 Team Status: Active Member Role Status Dates Amy BARAHONA, LASER PRINT OPERATOR-C Primary Care Provider Activ e Start: November 27, 2024 Drew Hinson MD Emergency Provider Active Star t: November 27, 2024 Dr. Brenda Rao MD Admit Provider Active St art: November 27, 2024 Dr. Brenda Rao MD Other Provider Active St art: November 27, 2024 Dr. Annalise Welch MD Other Provider Active S tart: November 27, 2024 Dr. Gale Lr , Other Provider Active Start : November 27, 2024 Clare GRADY PA-C Attending Provider Active Start: November 27, 2024 Team Status: Active Member Role Status Dates Amy BARAHONA, LASER PRINT OPERATOR-C Primary Care Provider Activ e Start: November 28, 2024 Derw Hinson MD Emergency Provider Active Star t: [...] Active Member Role Status Dates Amy BARAHONA, LASER PRINT OPERATOR-C Primary Care Provider Activ e Start: November 28, 2024 Drew Hinson MD Emergency Provider Active Star t: November 28, 2024 Dr. Brenda Rao MD Admit Provider Active St art: November 28, 2024 Dr. Brenda Rao MD Other Provider Active St art: November 28, 2024 Dr. Annalise Welch MD Other Provider Active S tart: November 28, 2024 Dr. Gale Lr , Attending Provider Active S tart: November 28, 2024 Dr. Gale Lr , Other Provider Active Start : November 28, 2024 Team Status: Active Member Role Status Dates Dr. Tony Dwyer MD Attending Provider Active Start: October 25, 2024 Dr. Abdirizak Forrest , YESY Referring Provider Active Start: October 25, 2024 Team Status: Active Member Role Status Dates Amy Rashad EDWARDSC, LASER PRINT OPERATOR-C Primary Care Provider Activ e Start: November [...] Inactive Member Role Status Dates Amy EDWARDSC, LASER PRINT OPERATOR-C Primary Care Provider Activ e Start: December 13, 2024 End: December 13, 2024 Amy EDWARDSC, LASER PRINT OPERATOR-C Referring Provider Active Start: December 13, 2024 End: December 13, 2024 MIGUEL A South Attending Provider Active Start: December 13, 2024 End: December 13, 2024 Team Status: Inactive Member Role Status Dates Amy EDWARDSC, LASER PRINT OPERATOR-C Primary Care Provider Activ e Start: December 13, 2024 End: December 13, 2024 MIGUEL A South Attending Provider Active Start: December 13, 2024 End: December 13, 2024 MIGUEL A South Referring Provider Active Start: December 13, 2024 End: December 13, 2024 Team Status: Inactive Member Role Status Dates Amy EDWARDSC, LASER PRINT OPERATOR-C Primary Care Provider Activ e Start: December 25, 2024 End: December 25, 2024 MIGUEL A South Attending Provider Active Start: December 25, 2024 End: December 25, 2024 Kalee Peter Referring Provider Active Start: December 25, 2024 End: December 25, 2024 Team Status: Active Member Role Status Dates Amy EDWARDSC, LASER PRINT OPERATOR-C Primary Care Provider Activ e Start: December 30, 2024 Dr. Poli Barfield DO Emergency Provider Active Start : December 30, 2024 Dr. David Bain MD Admit Provider Active Sta rt: December 30, 2024 Dr. David Bain MD Attending Provider Active Start: December 30, 2024 Team Status: Inactive Member Role Status Dates Amy EDWARDSC, LASER PRINT OPERATOR-C Primary Care Provider Activ e Start: December [...] Active Member Role Status Dates Amy Solorzano JERRYC, LASER PRINT OPERATOR-C Primary Care Provider Activ e Start: December 30, 2024 Dr. Poli Barfield DO Emergency Provider Active Start : December 30, 2024 Dr. David Bain MD Admit Provider Active Sta rt: December 30, 2024 Dr. David Bain MD Attending Provider Active Start: December 30, 2024 Dr. David Bain MD Other Provider Active Sta rt: December 30, 2024 Team Status: Active Member Role Status Dates Amy Solorzano [place], LASER PRINT OPERATOR-C Primary Care Provider Activ e Start: December 31, 2024 Dr. Poli Barfield DO Emergency Provider Active Start : December 31, 2024 Dr. David Bain MD Admit Provider Active Sta rt: December 31, 2024 Dr. David Bain MD Attending Provider Active Start: December 31, 2024 Dr. David Bain MD Other Provider Active Sta rt: December 31, 2024 Team Status: Active Member Role Status Dates Amy Solorzano [place], LASER PRINT OPERATOR-C Primary Care Provider Activ e Start: December 31, 2024 Dr. Poli Barfield DO Emergency Provider Active Start : December 31, 2024 Dr. Dewayne Grant DO Admit Provider Active Start: December 31, 2024 Dr. Dewayne Grant DO Attending Provider Active Start: December 31, 2024 Team Status: Inactive Member Role Status Dates Amy EDWARDSC, LASER PRINT OPERATOR-C Primary Care Provider Activ e Start: December 31, 2024 End: January 01, 2025 Dr. Poli Barfield Emergency Provider Active Start : December 31, 2024 End: January 01, 2025 Dr. Dewayne Grant , DO Admit Provider Active Start: December 31, 2024 End: January 01, 2025 Dr. Dewayne Grant , Other Provider Active Start: December 31, 2024 End: January 01, 2025 Dr. Frantz Coulter , Attending Provider Active Start: December 31, 2024 End: January 01, 2025 Team Status: Active Member Role Status Dates Amy BARAHONA, LASER PRINT OPERATOR-C Primary Care Provider Activ e Start: January 01, 2025 Dr. Poli Barfield , Emergency Provider Active Start : January 01, 2025 Dr. Dewayne Grant , Admit Provider Active Start: January 01, 2025 Dr. Dewayne Grant , Other Provider Active Start: January 01, 2025 Dr. Frantz Coulter , Attending Provider Active Start: January 01, 2025 Dr. Frantz Coulter , Other Provider Active S tart: January 01, 2025 INFORMATION SOURCE (unrecogn ized section and content) DATE CREATED AUTHOR 01/24/2023 [facility] DATE CREATED AUTHOR AUTHOR'S ORGANIZ ATION 02/18/2023 [facility] DATE CREATED AUTHOR AUTHOR'S ORGANIZ ATION 04/19/2023 [facility] DATE CREATED AUTHOR AUTHOR'S ORGANIZ ATION 02/02/2024 [facility] DATE CREATED AUTHOR AUTHOR'S ORGANIZ ATION 07/05/2024 [facility] DATE CREATED AUTHOR AUTHOR'S ORGANIZ ATION 01/01/[address] [facility] Scheduled Active and Recently Administ ered [...] BE BASED ON THE PRIMARY CLINICAL RECORDS. [facility]. provides no warranty or guarantee of the accuracy or completeness of information in this document.
[2025-01-02 07:29] LABS: Bedside Glucose 142 mg/dL (74-106)
[2025-01-02] MEDS: 0.9% Normal Saline (1000mL) 1,000 ML 1000 ML IV (07:32)
[2025-01-02] MEDS: DiphenhydrAMINE 25 MG, ChlorproMAZINE 25 MG in 0.9% Normal Saline (100mL Bag) 100 ML 203 MG IV (07:34)
[2025-01-02] MEDS: Famotidine 200 MG/20 ML MDV 20 MG in 0.9% Normal Saline (Pres. free 8 ML 300 MG IV (07:35)
[2025-01-02 07:46] VITALS: BP 148/93; PULSE 77; RESP 16; O2SAT 100
[2025-01-02 07:46] LABS: Absolute Lymphocyte Count 2.92 X10^3/uL (0.83-4.51); Absolute Neutrophil Count 7.3 X10^3/uL (2.0-7.7); Basophil# 0.03 X10^3/uL; Basophil% 0.3 % (0-1); Eosinophil# 0.01 X10^3/uL; Eosinophils% 0.1 % (0-5); Hematocrit 36.1 % (37-47); Hemoglobin 12.2 g/dL (12.0-15.0); Lymphocyte # 2.92 X10^3/ul (0.83-4.51); Lymphocyte % 26.2 % (19-41); Mean Corp Hgb Conc 33.8 g/dL (32-36); Mean Corpuscular Hgb 27.7 pg (27.0-32.0); Mean Platelet Vol. 9.4 fl (6.2-12.0); Monocyte# 0.77 X10^3/uL; Monocyte% 6.9 % (0-10); NRBC Flagged by Analyzer 0 % (0-5); Neutrophil # 7.34 X10^3/uL (2.7-7.7); Neutrophil % 65.7 % (47-70); Platelet Count 403 K/mm3 (150-450); RBC Distribution Width CV 14.3 % (11.6-14.6); RBC Distribution Width SD 41.6 fl (35.1-43.9); White Blood Count 11.2 K/mm3 (4.4-11.0)
[2025-01-02 08:16] LABS: ALB/GLOB Ratio 1.1 RATIO (0.9-2.4); AST(SGOT) 17 U/L (<=31); Alanine Aminotransfer ALT/SGPT 13 U/L (<=34); Alkaline Phosphatase 72 U/L (35-104); Anion Gap 16 (5-15); BETA-HYDROXYBUTYRATE 1.2 mmol/L (0.0-0.3); BUN 5 mg/dL (4-19); BUN/Creat Ratio 4.9 RATIO (10-20); Calcium,Total 9.4 mg/dL (7.6-11.0); Carbon Dioxide 18.1 mmol/L (21.0-32.0); Chloride 104 mmol/L (98-108); Creatinine, Serum 0.91 mg/dL (0.70-1.20); EST Glomerular Filtration Rate 86 (>60); Estimated Creatinine Clearance 109.85 ml/min (50-250); Globulin 3.8 g/dL (2.2-4.2); Glucose 135 mg/dL (70-99); Lipase 27 U/L (13-75); Potassium 3.4 mmol/L (3.3-5.1); Protein, Total 7.8 g/dL (5.9-8.4); Sodium Level 139 mmol/L (133-145); Total Bilirubin 0.51 mg/dL (0.00-1.30)
[2025-01-02] MEDS: 0.9% Normal Saline (1000mL) 1,000 ML 999 ML IV (08:37)
[2025-01-02 08:39] VITALS: BP 142/78; PULSE 85; RESP 16; O2SAT 99
[2025-01-02 09:40] VITALS: BP 151/98; PULSE 80; RESP 16; O2SAT 99
[2025-01-02] MEDS: Hyoscyamine Sulfate 0.125 MG Tablet 0.25 MG SL (10:13)
[2025-01-02 10:43] VITALS: BP 159/89; PULSE 85; RESP 18; TEMP 36.6; O2SAT 99
== END 2025-01-02 10:49 | disposition home or self-care (01) ==
PROVIDERS: Emergency Provider Emergency Medicine; PCP Nurse Practitioner Family; Visit Provider Emergency Medicine
DX: R11.15 Cyclical vomiting syndrome unrelated to migraine (principal); E11.40 Type 2 diabetes mellitus with diabetic neuropathy, unspecified; Z79.4 Long term (current) use of insulin; R10.9 Unspecified abdominal pain; Z87.891 Personal history of nicotine dependence; K21.9 Gastro-esophageal reflux disease without esophagitis; J45.909 Unspecified asthma, uncomplicated
CPT/HCPCS: 80053; 82010; 82962; 83690; 85025; 96361; 96365; 96368; 99282; A4216

== ENCOUNTER 2025-01-04 05:55 | Emergency (ER) | payer MEDICAID, SELFPAY ==
[2025-01-04 05:55] VITALS: BP 163/97; PULSE 95; RESP 18; TEMP 36.9; O2SAT 99; BMI 36.8
[2025-01-04] MEDS: Ondansetron 4 MG/2 ML Vial IV (06:14)
[2025-01-04] MEDS: Metoclopramide 10 MG/2 ML Vial IV (06:15)
[2025-01-04] MEDS: Morphine 4 MG/ML Syringe IV (06:16)
[2025-01-04] MEDS: 0.9% Normal Saline (1000mL) 1,000 ML 999 ML IV ×3 (06:17→09:24)
[2025-01-04 06:29] LABS: Absolute Lymphocyte Count 4.04 X10^3/uL (0.83-4.51); Absolute Neutrophil Count 9.5 X10^3/uL (2.0-7.7); Basophil# 0.04 X10^3/uL; Basophil% 0.3 % (0-1); Hemoglobin 12.4 g/dL (12.0-15.0); Lymphocyte # 4.04 X10^3/ul (0.83-4.51); Lymphocyte % 27.5 % (19-41); Mean Corp Hgb Conc 34.4 g/dL (32-36); Mean Corpuscular Hgb 27.7 pg (27.0-32.0); Mean Corpuscular Volume 80.5 fL (81-99); Monocyte# 0.98 X10^3/uL; Monocyte% 6.7 % (0-10); NRBC Flagged by Analyzer 0 % (0-5); Neutrophil # 9.51 X10^3/uL (2.7-7.7); Neutrophil % 64.8 % (47-70); Platelet Count 446 K/mm3 (150-450); RBC Distribution Width CV 14.7 % (11.6-14.6); RBC Distribution Width SD 42.6 fl (35.1-43.9); Red Blood Count 4.47 M/mm3 (4.2-5.4); White Blood Count 14.7 K/mm3 (4.4-11.0)
[2025-01-04 06:41] LABS: Internal QC Validated? YES +Cl - CLEAR BKGD; Pregnancy, Serum, hCG Quali. NEGATIVE Negative
[2025-01-04 06:43] LABS: Osmolality, Serum 292 mOsm/KG (275-295)
[2025-01-04 06:47] LABS: AST(SGOT) 17 U/L (<=31); Alanine Aminotransfer ALT/SGPT 9 U/L (<=34); Albumin, Serum 4.2 g/dL (3.5-5.0); Alkaline Phosphatase 70 U/L (35-104); Anion Gap 20 (5-15); BETA-HYDROXYBUTYRATE 2.1 mmol/L (0.0-0.3); BUN 12 mg/dL (4-19); BUN/Creat Ratio 12.5 RATIO (10-20); Bilirubin, Direct 0.22 mg/dL (0.00-0.30); Calcium,Total 9.3 mg/dL (7.6-11.0); Carbon Dioxide 16.6 mmol/L (21.0-32.0); Chloride 102 mmol/L (98-108); Creatinine, Serum 0.93 mg/dL (0.70-1.20); EST Glomerular Filtration Rate 84 (>60); Estimated Creatinine Clearance 105.48 ml/min (50-250); Globulin 3.8 g/dL (2.2-4.2); Glucose 159 mg/dL (70-99); Lactic Acid 1.6 mmol/L (0.0-2.0); Lipase 32 U/L (13-75); Magnesium 1.8 mg/dL (1.5-2.2); Potassium 3.1 mmol/L (3.3-5.1); Sodium Level 139 mmol/L (133-145); Total Bilirubin 0.64 mg/dL (0.00-1.30)
[2025-01-04 06:48] LABS: Alcohol, Blood (Medical)-Serum < 10.1 mg/dL (<=10.0)
[2025-01-04 06:49] LABS: Blood Gas Specimen Type VEN; O2 Delivery Device Not entered; SITE Not entered; VBG BASE EXCESS -4 mmol/L (-1.0-3.5); VBG Bicarbonate 19 mmol/L (22-26); VBG PO2 49 mmHg (25-40); VBG SO2 89 % (50-70); VBG TCO2 20 mmol/L (23-33); VBG pCO2 23.6 mmHg (41-51); VBG pH 7.52 (7.32-7.42)
--- OUTSIDE RECORDS SUMMARY | 2025-01-04 06:55 | XMS RPT_ITS | CCD ---
Author Organization [facility] Care Team Providers Care Mechanical Cad Drafter Name Role Phone Care Physician, No Primary [...] Dr. Sophy Gibbons Primary Care Provider [phone] MD Drew Hinson Emergency Provider Maira, Dr. Brenda Ng Admit Provider Maira, Dr. Brenda Ng Attending Provider [phone] Maira, Dr. Brenda Ng Other Provider Be, Dr. Beasley Attending Provider Dr. Gale Lr Other Provider Dr. Andres Matias Other Provider [phone] Norma, Dr. Soto Other Provider Dr. Alex Christiansen Emergency Provider [phone] Carlitos, Dr. Birmingham Admit Provider Carlitos, Dr. Birmingham Attending Provider Carlitos, Dr. [place] Other Provider Dr. Lexus Villatoro Attending Provider Dr. Lexus Villatoro Other Provider Unavailable Primary Care Provider Unavailarpita Solorzano BOAT HOIST OPERATOR, [facility] Primary Care Provider [facility] Pro vider Dr. Willie Dhillon Emergency Provider Dr. Lexus Villatoro Admit Provider Dr. Lexus Villatoro Attending Provider Dr. Lexus Villatoro Other Provider ABDIRIZAK RAMIREZ Attending Unavailable RASHAD [facility] Primary Care Unavailable [facility] Primary [facility] Provider RASHAD HEATSET WINDER OPERATOR-MEAT BONER AND SLICER, [facility] Physicia n DEWAYNE CHACON DO Attending Unavailable DEWAYNE CHACON DO Primary Care Unavailable DEWAYNE CHACON DO Admitting Unavailable GERALDINE ROLAND Admitting Unavailable GERALDINE ROLAND Attending Unavailable GERALDINE ROLAND Primary Care [facility] Primary Care Pro vider Dr. Willie Dhillon Emergency Provider Dr. Lexus Villatoro Admit Provider Dr. Lexus Villatoro Attending Provider Dr. Lexus Villatoro Other Provider ESSIE DOWNS DO Attending Unavailable GERALDINE SILVA DO Referring Unavailable RASHAD HEATSET WINDER OPERATOR-MEAT [employer]ONER AND SLICER, AMY Primary Care Unava fanny WEBB HEATSET WINDER OPERATOR-MEAT [employer]ONER AND SLICER, MARTI Matthews Attending Amadavai EHLENA Glynn Admitting Unavailable Care Physician, No Primary [...] Provider Dr. Rickey Gifford Other Provider Rashad BOAT HOIST OPERATOR, Amy Primary Care Provider Care Physician, No Primary Primary Care Provider Unavailable Dr. Javy Doss Emergency Provider Dr. Rickey Gifford Attending Provider Dr. Abdirizak Forrest Other Provider Dr. Rickey Gifford Admit Provider Dr. Rickey Gifford Other Provider Rashad BOAT HOIST OPERATOR, Amy Primary Care Provider KHDELFINO, KAMAL Admitting Unavailable KHDELFINO KAMAL Attending Unavailable RASHAD, AMY Primary Care Unavailable CAYETANO TAI Consulting Unavailable Unavailable Primary Care Provider Unavailabl e RASHAD, AMY Primary Care Unavailable IRAIS HANNA Referring Unavailable RASHAD, AMY Primary Care Unavailable RASHAD, AMY Primary Care Unavailable Rashad BOAT HOIST OPERATOR-C, Amy Primary Care Provider Rashad BOAT HOIST OPERATOR-C, Amy Attending Provider Lon DPM, Dr. [...] Provider Clare Loo PA-C Attending Provider Rashad BOAT HOIST OPERATOR-C, Amy Referring Provider Nayana Grigsby Attending Provider Nayana Grigsby Referring Provider Kalee Peter Referring Provider Unavailable Carolyne KIM, Dr. Ashton Emergency Provider Odell BOYCE, Dr. Hernandez Admit Provider Odell BOYCE, Dr. Hernandez Attending Provider Odell BOYCE, Dr. Hernandez Other Provider Rashad BOAT HOIST OPERATOR-C, Amy Primary Care Provider Rashad BOAT HOIST OPERATOR-C, Amy Attending Provider Lon DPM, Dr. Rothman Attending Provider Lon DPM, Dr. Rothman Referring Provider Yuliya BOYCE, Dr. Tony Peterson Attending Provider Drew Hinson MD Emergency Provider Maira BOYCE, Dr. Brenda Ng Admit Provider Maira BOYCE, Dr. Brenda Ng Other Provider Yuri BOYCE, Dr. Woody Other Provider Be KIM, Dr. Beasley Attending Provider Yuri BOYCE, Dr. Woody Attending Provider Be KIM, Dr. Beasley Referring Provider Maira BOYCE, Dr. Brenda Ng Attending Provider Be KIM, Dr. Beasley Other Provider Clare Loo PA-C Attending Provider Rashad CUMMINS-C, Amy Referring Provider Nayana Grigsby Attending Provider Nayana Grigsby Referring Provider Kalee Peter Referring Provider Unavailable Carolyne KIM, Dr. Ashton Emergency Provider Odell BOYCE, Dr. Hernandez Admit Provider Odell BOYCE, Dr. Hernandez Attending Provider Odell BOYCE, Dr. Hernandez Other Provider Dr. Dewayne Grant DO Admit Provider Unavail able Dr. Dewayne Grant DO Attending Provider Unav ailable Dr. Dewayne Grant DO Other Provider Unavail able Dr. Frantz Coulter DO Attending Provider Dr. Frantz Coulter DO Other Provider Rashad [facility], Amy Primary Care Unavailabl e David Bain Admitting Unavailable Dvaid Bain Consulting Unavailable David Bain Attending Unavailable Dewayne Grant Admitting Unavailable de Dewayne Duff Consulting Unavailable [facility], [facility] Primary Care Unavailabl e Frantz Coulter Attending Unavailable Frantz Coulter Consulting Unavailable Koram, Brenda Berenice Admitting Unavailable [facility] Primary Care Unavailabl e Robotham, Annalise Consulting Unavailable Gale Lr Referring Unavailable Nildaham, Annalise Attending Unavailable Maira, Brenda Berenice Consulting Unavailable [facility], [facility] Primary Care Unavailabl e Abdirizak Forrest Attending Unavailable Abdirizak Forrest Referring Unavailable [facility], Amy Attending Unavailabl e [facility] Primary Care Unavailabl e Poli Barfield Attending Unavailable [facility] Primary Care Unavailabl e [facility], [facility] Primary Care Unavailabl e Nayana Peter Attending Unavailable Nayana Peter Referring Unavailable Kalee Peter Referring Unavailable [facility], [facility] Primary Care Unavailabl e Nayana Peter Attending Unavailable Maira, Brenda Contea Attending Unavailable Clare Steve Attending Unavailable Gale Lr Consulting Unavailable [facility], [facility] Referring Unavailabl e [facility] Primary Care Unavailabl e Nayana Peter Attending Unavailable Gale Lr Attending Unavailable [facility] Primary Care Unavailabl e Abdirizak Forrest Attending Unavailable Abdirizak Forrest Referring Unavailable [facility], Amy Attending Unavailabl e [facility] Primary Care Unavailabl e Dewayne Grant Admitting Unavailable de Dewayne Duff Consulting Unavailable [facility] Primary Care Unavailabl e Frantz Coulter Attending Unavailable [facility] Primary Care Unavailabl e David Bain Attending Unavailable David Bain Admitting Unavailable Koram, Brenda Berenice Admitting Unavailable [facility] Primary Care Unavailabl e Gale Lr Attending Unavailable Robotham, Annalise Consulting Unavailable Koram, Brenda Berenice Consulting Unavailable [facility] Primary Care Unavailabl e Nayana Peter Attending Unavailable Nayana Peter Referring Unavailable [facility] Primary Care Unavailabl e Venkatesh Torres Attending Unavailable Allergies Allergy Classification Reported Allergen(s) Allergy Type Date of Onset Reaction(s) Facility (2 sources) Cephalexin Drug Allergy 10-31-2013 Other: See Comments [facility] Work Phone: Medications Current Medications Medication Drug Class(es) Dates Sig (Normalized) Sig (Original) [id number] 200 actuat albuterol 0.09 mg/actuat metered dose [...] 0 Refill(s), 02/18/23 5:07:00 PM EDT, Pharmacy: [id number], 169.9, cm, 02/11/23 1:49:00 EDT, Height, [...] on above: Take 1 capsule by mo [facility] three times daily for 7 days. [...] extended release oral tablet (1 source) Uncompetitive Q-vegnhe-O-aspartate Receptor Antagonist, Sigma-1 Agonist Start: End: take [...] Dulaglutide (20 sources) GLP-1 Receptor Agonist Start: Start: 11-25-2024 Dulaglutide (T rulicity) 4.5 mg/0.5 mL pen injector Active 4.5 mg SC SA November 25, 2024 12:00am Start: 12-20-2023 End: 11-25-2024 Start: 12-20-2023 End: 11-25-2024 Dulaglutide (Trulicity) 1.5 mg/0.5 mL pen injector Discontinued 1.5 mg SC December 20, 2023 12:00am November 25, 2024 1:31pm hyoscyamine sulfate 0.125 mg sublingual tablet (20 sources) Start: 01-02-2025 Start: 01-07-2023 End: 06-27-2023 Start: 01-30-2022 take 0.125 mg by balbir th three times daily Hyoscyamine Sulfate Active 0.125 MG PO THREE TIMES A DAY January 30, 2022 12:00am sodium hypochlorite 2.5 mg/ml topical solution (5 [...] Glargine-Yfgn Active 35 UNIT SC AT BEDTIME April 09, 2022 12:00am 3 ml insulin lispro 100 unt/ml pen injector (5 sources) Insulin Analog Start: 04-09-20 Insulin Lispro (Humalog Kwikpen Insulin) 100 unit/mL Insulin Pen Active 0 UNIT SC BEFORE MEALS AND AT BEDTIME April 09, 2022 12:00am lactulose 667 mg/ml oral solution (1 source) Osmotic Laxative Start: 06-30-20 linaclotide 0.145 mg oral capsule (8 sources) Guanylate Cyclase-C Agonist Start: 12-14-19 losartan [...] ar ea twice daily for 5 days. ondansetron 4 mg disintegrating oral tablet (20 sources) Serotonin-3 Receptor Antagonist Start: 01-02-2025 Start: 05-09-2023 End: 06-27-2023 Start: 01-24-2023 End: [...] mouth e very 6 hours as needed. pantoprazole 40 mg delayed release oral tablet (18 sources) Proton Pump Inhibitor Start: End: take 1 tablet by mouth twice daily before mealtime pantoprazole DR (PROTONIX) 40 mg tablet Take 1 tablet by mouth twice daily before meals (0600/1600). 60 tablet 3 02/20/2023 Active Start: 01-30-2022 End: 03-23-2022 take 40 mg by mouth twice daily Pantoprazole Active 40 MG PO TWICE A DAY 60 January 302 12:00am Comment on above: Take 40 mg by mouth twice daily. Take 1 tablet by twice daily before meals (0600/1600). pioglitazone 30 mg oral tablet (3 sources) Peroxisome Proliferator Receptor alpha Agonist, Peroxisome Proliferator Receptor gamma Agonist, Thiazolidinedione Start: 01-31-20 take 30 mg by mouth once daily Pioglitazone Active 30 MG PO DAILY 30 January 30, 2022 12:00am polyethylene glycol 3350 [id number] mg / potassium chloride 2970 mg / sodium bicarbonate 6740 mg / sodium chloride 5860 mg / sodium sulfate 90987 mg powder for oral solution (20 sources) [...] on above: Take 2 tablets by mo [facility] every 6 hours as needed. 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 Fax to [phone] routine picc care per protocol Completed/Discontinued Medications [...] Start: 03-04-2023 take 2 tablets by mo uth every six hours as needed acetaminophen (TYLENOL [...] Discontinued 1 TABLET PO TWICE A DAY 22 01February 26, [...] on above: Take 1 capsule by mo [facility] three times daily as needed [...] Start: 10-29-2021 take 1 capsule by mo [facility] once daily Docusate Sodium (Colace) 100 mg capsule Active 100 MG PO DAILY October 29, 2021 12:01pm doxycycline hyclate 100 mg o ral capsule (16 sources) Tetracycline-class Drug Start: 07-29-2023 End: 12-20-2023 [...] on above: Take 1 tablet by balbir twice daily for 7 days. Fiber (10 [...] tablet by balbir th daily with breakfast. lansoprazole 30 mg delayed release oral capsule (20 sources) Proton Pump Inhibitor Start: 02-08-2023 End: 05-04-2023 levoFLOXacin 750 mg oral tablet (20 sources) Quinolone Antimicrobial Start: 05-09-2023 End: [...] End: 03-23-2022 MULTIVITAMIN ORAL Take by mo [facility]. 0 03/23/2022 Discontinued MULTIVITAMIN ORA L Take by mouth. 0 Active Comment on above: Take by mouth. omeprazole 40 mg delayed rel ease oral capsule (20 sources) Proton Pump Inhibitor Start: 01-19-2023 End: 05-09-2023 polyethylene glycol 3350 170 00 mg powder for oral solution (20 sources) Osmotic Laxative Start: 11-28-2024 End: 12-30-2024 Start: 04-06-2022 End: 05-04-2023 Start: 06-06-2021 End: 02-18-2023 polyethylene glycol 3350 (OH RALAX, GLYCOLAX) 17 gram/dose powder Take 17 [...] d 1 PATCH TD Every 3 Days 4 January 15, 2023 12:00am May 04, 2023 [...] days. traMADol hydrochloride 50 mg oral tablet (9 sources) Opioid Agonist Start: 11-28-2024 End: 12-30-2024 [...] 300 mg by mouth daily at bedtime. (11 sources) Start: 12-24-2023 End: 11-25-2024 Start: 07-23-2023 End: 11-25-2024 Start: 07-23-2023 Start: 07-16-2023 End: 11-25-2024 Start: 07-16-2023 Problems Active Problems Problem Classification Problem Date Documented Da te Episodic/Chronic Abdominal pain (20 sources) Abdominal pain; Translations: [Unspecified abdominal pain] Onset: 02-11-2023 Episodic Acute and unspecified renal failure (12 sources) Acute renal failure syndrome; Translations: [Acute [...] unspecified] 08-19-2021 Episodic Intestinal obstruction without hernia (20 sources) Fecal impaction; Translations: [Fecal impaction] Onset: [...] Episodic Other disorders of stomach and duodenum (9 sources) Cyclical vomiting syndrome; Translations: [Cyclical vomiting syndrome unrelated to migraine] 12-30-2024 Episodic Other eye disorders (1 source) Pain of right eye; Translations: [Ocular pain, right eye] 07-01-2023 Episodic Other eye disorders (15 sources) Complete obstruction of lacrimal canaliculus ; Translations: [Blocked tear duct] 07-02-2023 Episodic Other gastrointestinal disorders (20 sources) Constipation; Translations: [Constipation, unspecified] Onset: 03-02-2023 11-06-2021 Episodic Other gastrointestinal disorders (2 sources) Constipation, unspecified; Translations: [Constipation, unspecified] Onset: 02-11-2023 Episodic Other injuries and conditions due to external causes (12 sources) Unspecified injury of right Achilles tendon, initial encounter; Translations: [Injury of right Achilles tendon] 12-24-2023 Episodic Other liver diseases (7 sources) Elevated liver enzymes level; Translations: [Abnormal [...] Onset: 03-01-2023 Chronic Other nervous system disorders (14 sources) Acute postoperative pain; Translations: [Other acute postprocedural pain] 07-23-2023 Episodic Other nutritional; endocrine; and metabolic disorders (8 sources) Body mass index 40+ - severely obese; Translations: [Morbid (severe) obesity due to excess calories] Onset: 06-13-2013 06-13-2013 Chronic Other nutritional; endocrine; and metabolic disorders (13 sources) Obese class I; Translations: [Obesity, unspecified] Onset: 02-18-2023 02-20-2023 Chronic Other nutritional; endocrine; and metabolic disorders (6 sources) Body mass index 30+ - obesity; [...] function studies] Onset: 12-28-2024 Episodic Personality disorders (17 sources) Borderline personality disorder; Translations: [Borderline personality disorder] Onset: 03-02-2023 03-02-2023 Chronic Pneumonia (except that caused by tuberculosis or sexually transmitted disease) (1 source) Bronchopneumonia; Translations: [Bronchopneumonia, unspecified organism] 06-26-2024 Episodic Residual codes; unclassified (20 sources) Other specified health status; Translations: [Failure of outpatient treatment] 01-14-2023 Episodic Residual codes; unclassified (6 sources) Patient noncompliance - general; Translations: [General [...] today or tomorrow to set up appointment. workers compensation legal secretary called to schedule appointment. I had [...] Test Name Value Interpretation Reference Range Facility Absolute lymphocyte countOrd ered By: Poli Barfield on 01-02-2025 Lymphocytes Auto (Unsp spec) [#/Vol] 2.92 10*3/uL 0.83-4.51 [facility] Anion gap in Serum or Plasma Ordered By: Poli Barfield on 01-02-2025 Anion gap [Moles/Vol] 16 mmol/L High 5-15 [facility] Automated lymphocyte count a s percentage of total leukocytesOrdered By: Poli Barfield on 01-02-2025 Lymphocytes/100 WBC Auto (Unsp spec) 26.2 % 19-41 [facility] BUN/creatinine ratioOrdered By: Poli Barfield on 01-02-2025 Urea nitrogen/Creatinine [Mass ratio] 4.9 mg/mg Low 10-20 [facility] Basophil percentageOrdered B y: Poli Carolyne on 01-02-2025 Basophils/100 WBC (Bld) 0.3 % 0-1 [facility] Bedside Glucoseon 01-02-2025 FINGERSTICK GLU 142 mg/dL High 74-106 [facility] Comment on above: Result Comment: BULL SAMAYOA OF PATIENT CARE PER NURSING PROTOCOL Performed By: #### L 501.080 ####[facility] [address] [place], [address] Beta-Hydroxbytyrateon 2024 BETA-HYDROXYBUT 1.2 mmol/L High 0.0-0.3 [facility] Comment on above: Performed By: #### L 501.2450, L100.0100, L500.4050, [id number] ####[facility] [address] [place], [address] Beta-hydroxybutyrateOrdered By: Poli Barfield on 01-02-2025 Beta hydroxybutyrate [Mass/Vol] 1.2 mmol/L High 0.0-0.3 [facility] Bilirubin, totalOrdered By: Poli Barfield on 01-02-2025 Bilirubin [Mass/Vol] 0.51 mg/dL 0.00-1.30 [facility] CBC W/Diff, Automatedon 12-11 Absolute Lymph 2.92 X10 3/uL Normal 0.83-4.51 [facility] Comment on above: Performed By: #### L 501.2450, L100.0100, L500.4050, [id number] ####[facility] [address] [place], [address] Absolute Neut 7.3 X10 3/uL Normal 2.0-7.7 [facility] Comment on above: Performed By: #### L 501.2450, L100.0100, L500.4050, [id number] ####[facility] [address] [place], [address] Basophils/100 WBC (Bld) 0.3 % Normal 0-1 [facility] Comment on above: Performed By: #### L 501.2450, L100.0100, L500.4050, [id number] ####[facility] [address] [place], [address] Eosinophils/100 WBC (Bld) 0.1 % Normal 0-5 [facility] Comment on above: Performed By: #### L 501.2450, L100.0100, L500.4050, [id number] ####[facility] [address] [place], [address] Erythrocyte distribution width (RBC) [Ratio] 14.3 % Normal 11.6-14.6 [facility] Comment on above: Performed By: #### L 501.2450, L100.0100, L500.4050, [id number] ####[facility] [address] [place], [address] Hematocrit (Bld) [Volume fraction] 36.1 % Low 37-47 [facility] Comment on above: Performed By: #### L 501.2450, L100.0100, L500.4050, [id number] ####[facility] [address] [place], [address] Hemoglobin (Bld) [Mass/Vol] 12.2 g/dL Normal 12.0-15.0 [facility] Comment on above: Performed By: #### L 501.2450, L100.0100, L500.4050, [id number] ####[facility] [address] [place], [address] IG% 0.800 Normal 0.0-0.9 [facility] Comment on above: Result Comment: IG% - Immature Granulocytes (promyelocytes, myelocytes andmetamyelocytes) > 1% indicates that a LEFT SHIFT is Present. Performed By: #### L 501.2450, L100.0100, L500.4050, L501.6901 ####[facility] [address] [place], [address] Lymphocytes/100 WBC (Bld) 26.2 % Normal 19-41 [facility] Comment on above: Performed By: #### L 501.2450, L100.0100, L500.4050, [id number] ####[facility] [address] [place], [address] MCH (RBC) [Entitic mass] 27.7 pg Normal 27.0-32.0 [facility] Comment on above: Performed By: #### L 501.2450, L100.0100, L500.4050, [id number] ####[facility] [address] [place], [address] MCHC (RBC) [Mass/Vol] 33.8 g/dL Normal 32-36 [facility] Comment on above: Performed By: #### L 501.2450, L100.0100, L500.4050, [id number] ####[facility] [address] [place], [address] MCV (RBC) [Entitic vol] 82.0 fL Normal 81-99 [facility] Comment on above: Performed By: #### L 501.2450, L100.0100, L500.4050, [id number] ####[facility] [address] [place], [address] Monocytes/100 WBC (Bld) 6.9 % Normal 0-10 [facility] Comment on above: Performed By: #### L 501.2450, L100.0100, L500.4050, [id number] ####[facility] [address] [place], [address] Neutrophils/100 WBC (Bld) 65.7 % Normal 47-70 [facility] Comment on above: Performed By: #### L 501.2450, L100.0100, L500.4050, [id number] ####[facility] [address] [place], [address] Nucleated RBC (Bld) [#/Vol] 0 10*3/uL Normal 0-5 [facility] Comment on above: Performed By: #### L 501.2450, L100.0100, L500.4050, [id number] ####[facility] [address] [place], [address] Platelet mean volume (Bld) [Entitic vol] 9.4 fL Normal 6.2-12.0 [facility] Comment on above: Performed By: #### L 501.2450, L100.0100, L500.4050, [id number] ####[facility] [address] [place], [address] Platelets (Bld) [#/Vol] 403 10*3/uL Normal 150-450 [facility] Comment on above: Performed By: #### L 501.2450, L100.0100, L500.4050, [id number] ####[facility] [address] [place], [address] RBC (Bld) [#/Vol] 4.40 10*6/uL Normal 4.2-5.4 [facility] Comment on above: Performed By: #### L 501.2450, L100.0100, L500.4050, [id number] ####[facility] [address] [place], [address] RDW SD 41.6 fl Normal 35.1-43.9 [facility] Comment on above: Performed By: #### L 501.2450, L100.0100, L500.4050, [id number] ####[facility] [address] [place], [address] WBC (Bld) [#/Vol] 11.2 10*3/uL High 4.4-11.0 [facility] Comment on above: Performed By: #### L 501.2450, L100.0100, L500.4050, [id number] ####[facility] [address] [place], [address] Carbon dioxide, total [Moles /volume] in Central venous bloodOrdered By: Poli Barfield on 01-02-2025 CO2 [Moles/Vol] 18.1 mmol/L Low 21.0-32.0 [facility] Chloride assayOrdered By: Demetrio Barfield on 01-02-2025 Chloride [Moles/Vol] 104 mmol/L 98-108 [facility] Comprehensive Metabolic Prof ilon 01-02-2025 Albumin [Mass/Vol] 4.0 g/dL Normal 3.5-5.0 [facility] Comment on above: Performed By: #### L 501.2450, L100.0100, L500.4050, [id number] ####[facility] [address] [place], [address] Albumin/Globulin [Mass ratio] 1.1 {ratio} Normal 0.9-2.4 [facility] Comment on above: Performed By: #### L 501.2450, L100.0100, L500.4050, [id number] ####[facility] [address] [place], [address] ALK PHOS 72 U/L Normal 35-104 [facility] Comment on above: Performed By: #### L 501.2450, L100.0100, L500.4050, [id number] ####[facility] [address] [place], [address] ALT [Catalytic activity/Vol] 13 U/L Normal <=34 [facility] Comment on above: Performed By: #### L 501.2450, L100.0100, L500.4050, [id number] ####[facility] [address] [place], [address] AST [Catalytic activity/Vol] 17 U/L Normal <=31 [facility] Comment on above: Performed By: #### L 501.2450, L100.0100, L500.4050, [id number] ####[facility] [address] [place], [address] Bilirubin [Mass/Vol] 0.51 mg/dL Normal 0.00-1.30 [facility] Comment on above: Performed By: #### L 501.2450, L100.0100, L500.4050, [id number] ####[facility] [address] [place], [address] BUN/CRE 4.9 RATIO Low 10-20 [facility] Comment on above: Performed By: #### L 501.2450, L100.0100, L500.4050, [id number] ####[facility] [address] [place], [address] Calcium [Mass/Vol] 9.4 mg/dL Normal 7.6-11.0 [facility] Comment on above: Performed By: #### L 501.2450, L100.0100, L500.4050, [id number] ####[facility] [address] [place], [address] Chloride [Moles/Vol] 104 mmol/L Normal 98-108 [facility] Comment on above: Performed By: #### L 501.2450, L100.0100, L500.4050, [id number] ####[facility] [address] [place], [address] CO2 [Moles/Vol] 18.1 mmol/L Low 21.0-32.0 [facility] Comment on above: Performed By: #### L 501.2450, L100.0100, L500.4050, L501.6901 ####[facility] [address] [place], [address] Creatinine [Mass/Vol] 0.91 mg/dL Normal 0.70-1.20 [facility] Comment on above: Performed By: #### L 501.2450, L100.0100, L500.4050, L501.6901 ####[facility] [address] [place], [address] ECRCL 109.85 ml/min Normal 50-250 [facility] Comment on above: Performed By: #### L 501.2450, L100.0100, L500.4050, L501.6901 ####[facility] [address] [place], [address] GAP 16 High 5-15 [facility] Comment on above: Performed By: #### L 501.2450, L100.0100, L500.4050, L501.6901 ####[facility] [address] [place], [address] GFR/1.73 sq M.predicted among non-blacks MDRD (S/P/Bld) [Vol rate/Area] 86 mL/min/{1.73_m2} Normal >60 [facility] Comment on above: Result Comment: mL/m in/1.73m2 CKD-EPI Creatinine Equation (2020) Performed By: #### L 501.2450, L100.0100, L500.4050, L501.6901 ####[facility] [address] [place], [address] Globulin (S) [Mass/Vol] 3.8 g/dL Normal 2.2-4.2 [facility] Comment on above: Performed By: #### L 501.2450, L100.0100, L500.4050, L501.6901 ####[facility] [address] [place], [address] Glucose [Mass/Vol] 135 mg/dL High 70-99 [facility] Comment on above: Performed By: #### L 501.2450, L100.0100, L500.4050, L501.6901 ####[facility] [address] [place], [address] Potassium [Moles/Vol] 3.4 mmol/L Normal 3.3-5.1 [facility] Comment on above: Performed By: #### L 501.2450, L100.0100, L500.4050, L501.6901 ####[facility] [address] [place], [address] Sodium [Moles/Vol] 139 mmol/L Normal 133-145 [facility] Comment on above: Performed By: #### L 501.2450, L100.0100, L500.4050, L501.6901 ####[facility] [address] [place], [place], [id number] T PROT 7.8 g/dL Normal 5.9-8.4 [facility] Comment on above: Performed By: #### L 501.2450, L100.0100, L500.4050, L501.6901 ####[facility] [address] [place], [address] Urea nitrogen [Mass/Vol] 5 mg/dL Normal 4-19 [facility] Comment on above: Performed By: #### L 501.2450, L100.0100, L500.4050, L501.6901 ####[facility] [address] [place], [place], [id number] Emergency Department Summary on 01-02-2025 Emergency Department Summary Normal [facility] Eosinophil percentageOrdered By: Poli Barfield on 01-02-2025 Eosinophils/100 WBC (Bld) 0.1 % 0-5 [facility] Erythrocyte distribution wid th ratioOrdered By: Poli Barfield on 01-02-2025 Erythrocyte distribution width (RBC) [Ratio] 14.3 % 11.6-14.6 [facility] Erythrocyte distribution wid th standard deviationOrdered By: Poli Barfield on 01-02-2025 Erythrocyte distribution width (RBC) [Ratio] 41.6 fl 35.1-43.9 [facility] Glomerular filtration rate ( GFR) estimation/1.73 sq m using serum, plasma, or whole bOrdered By: Poli Barfield on 01-02-2025 GFR/1.73 sq M.predicted among non-blacks MDRD (S/P/Bld) [Vol rate/Area] 86 mL/min/{1.73_m2} >60 [facility] Glucose measurement at bedsi deOrdered By: Poli Barfield on 01-02-2025 Glucose [Mass/Vol] 142 mg/dL High 74-106 [facility] Hematocrit Auto (Bld) [Volum e fraction]Ordered By: Poli Barfield on 01-02-2025 Hematocrit (Bld) [Volume fraction] 36.1 % Low 37-47 [facility] Hemoglobin measurementOrdere d By: Poli Barifeld on 01-02-2025 Hemoglobin (Bld) [Mass/Vol] 12.2 g/dL 12.0-15.0 [facility] Immature granulocytes/100 WB C Auto (Bld)Ordered By: Poli Barfield on 01-02-2025 Immature granulocytes/100 WBC (Bld) 0.800 % 0.0-0.9 [facility] Lipaseon 01-02-2025 Lipase [Catalytic activity/Vol] 27 U/L Normal 13-75 [facility] Comment on above: Result Comment: Adam faulkner note:LIPASE revised reference range effective 22.New Lipase methodology. Expected to produce lower valuesthan the previous assay method.NEW Reference Range: 13 - 75 U/L Performed By: #### L 501.2450, L100.0100, L500.4050, L501.6901 ####[facility] [address] [place], [address] MCV (mean corpuscular volume ) determinationOrdered By: Poli Barfield on 01-02-2025 MCV (RBC) [Entitic vol] 82.0 fL 81-99 [facility] Mean corpuscular hemoglobin (MCH) determinationOrdered By: Poli Barfield on 01-02-2025 MCH (RBC) [Entitic mass] 27.7 pg 27.0-32.0 [facility] Monocyte percentageOrdered B y: Poli Barfield on 01-02-2025 Monocytes/100 WBC (Bld) 6.9 % 0-10 [facility] Neutrophil percentageOrdered By: Poli Barfield on 01-02-2025 Neutrophils/100 WBC (Bld) 65.7 % 47-70 [facility] No Panel InformationOrdered By: Poli Barfield on 01-02-2025 17 U/L <32 [facility] Platelet countOrdered By: Demetrio Barfield on 01-02-2025 Platelets (Bld) [#/Vol] 403 10*3/uL 150-450 [facility] Potassium measurement (mass/ volume)Ordered By: Poli Barfield on 01-02-2025 Potassium (Unsp spec) [Mass/Vol] 3.4 mmol/L 3.3-5.1 [facility] RBC Auto (Bld) [#/Vol]Ordere d By: Poli Barfield on 01-02-2025 RBC (Bld) [#/Vol] 4.40 10*6/uL 4.2-5.4 [facility] Serum creatinine measurement (mass/volume)Ordered By: Poli Barfield on 01-02-2025 Creatinine [Mass/Vol] 0.91 mg/dL 0.70-1.20 [facility] Serum globulin measurementOr dered By: Poli Barfield on 01-02-2025 Globulin (S) [Mass/Vol] 3.8 g/dL 2.2-4.2 [facility] Serum glucose measurement (m ass/volume)Ordered By: Poli Barfield on 01-02-2025 Glucose [Mass/Vol] 135 mg/dL High 70-99 [facility] Serum or plasma alanine jordan otransferase (ALT) measurementOrdered By: Poli Barfield on 01-02-2025 ALT [Catalytic activity/Vol] 13 U/L <35 [facility] Serum or plasma albumin hussein urement (mass/volume)Ordered By: Poli Barfield on 01-02-2025 Albumin [Mass/Vol] 4.0 g/dL 3.5-5.0 [facility] Serum or plasma albumin/glob ulin mass ratioOrdered By: Poli Barfield on 01-02-2025 Albumin/Globulin [Mass ratio] 1.1 {ratio} 0.9-2.4 [facility] Serum or plasma alkaline bradley sphatase measurementOrdered By: Poli Barfield on 01-02-2025 ALP [Catalytic activity/Vol] 72 U/L 35-104 [facility] Serum or plasma calcium hussein urement (mass/volume)Ordered By: Poli Barfield on 01-02-2025 Calcium [Mass/Vol] 9.4 mg/dL 7.6-11.0 [facility] Serum or plasma urea nitroge n measurement (mass/volume)Ordered By: Poli Barfield on 01-02-2025 Urea nitrogen [Mass/Vol] 5 mg/dL 4-19 [facility] Sodium levelOrdered By: Poli Barfield on 01-02-2025 Sodium [Moles/Vol] 139 mmol/L 133-145 [facility] Total proteinOrdered By: Devon Barfield on 01-02-2025 Protein [Mass/Vol] 7.8 g/dL 5.9-8.4 [facility] White blood cell (WBC) count Ordered By: Poli Barfield on 01-02-2025 WBC (Bld) [#/Vol] 11.2 10*3/uL High 4.4-11.0 [facility] Anion gap in Serum or Plasma Ordered By: Dewayne Duff on 01-01-2025 Anion gap [Moles/Vol] 9 mmol/L 5-15 [facility] BUN/creatinine ratioOrdered By: Dewayne Duff on 01-01-2025 Urea nitrogen/Creatinine [Mass ratio] 6.1 mg/mg Low 10- [facility] Basic Metabolic Profile (BMP )on 01-01-2025 BUN Normal 4-19 [facility] Comment on above: Order Comment: Call MD with results STAT Result Comment: Canc elled via OM: MD Ordered Performed By: #### L 500.2500 ####[facility] [address] [facility] [address] BUN/CRE Normal 10-20 [facility] Comment on above: Order Comment: Call MD with results STAT Result Comment: Canc elled via OM: MD Ordered Performed By: #### L 500.2500 ####[facility] [address] [facility] [address] Calcium Normal 7.6-11.0 [facility] Comment on above: Order Comment: Call MD with results STAT Result Comment: Canc elled via OM: MD Ordered Performed By: #### L 500.2500 ####[facility] [address] [place], [address] CL Normal 98-108 [facility] Comment on above: Order Comment: Call MD with results STAT Result Comment: Canc elled via OM: MD Ordered Performed By: #### L 500.2500 ####[facility] [address] [place], [address] CO2 Normal 21.0-32.0 [facility] Comment on above: Order Comment: Call MD with results STAT Result Comment: Canc elled via OM: MD Ordered Performed By: #### L 500.2500 ####[facility] [address] [place], [address] CREAT,SERUM Normal 0.70-1.20 [facility] Comment on above: Order Comment: Call MD with results STAT Result Comment: Canc elled via OM: MD Ordered Performed By: #### L 500.2500 ####[facility] [address] [place], [address] eGFR Normal >60 [facility] Comment on above: Order Comment: Call MD with results STAT Result Comment: Canc elled via OM: MD Ordered Performed By: #### L 500.2500 ####[facility] [address] [place], [address] GAP Normal 5-15 [facility] Comment on above: Order Comment: Call MD with results STAT Result Comment: Canc elled via OM: MD Ordered Performed By: #### L 500.2500 ####[facility] [address] [place], [address] GLU Normal 70-99 [facility] Comment on above: Order Comment: Call MD with results STAT Result Comment: Canc elled via OM: MD Ordered Performed By: #### L 500.2500 ####[facility] [address] [place], [address] Potassium Normal 3.3-5.1 [facility] Comment on above: Order Comment: Call MD with results STAT Result Comment: Canc elled via OM: MD Ordered Performed By: #### L 500.2500 ####[facility] [address] [place], [address] Basic Metabolic Profile (BMP) Normal 133-145 [facility] Comment on above: Order Comment: Call MD with results STAT Result Comment: Canc elled via OM: MD Ordered Performed By: #### L 500.2500 ####[facility] [address] [place], [address] BUN Normal 4-19 [facility] Comment on above: Order Comment: Call MD with results STAT Result Comment: Canc elled via OM: MD Ordered Performed By: #### L 500.2500 ####[facility] [address] [place], [address] BUN/CRE Normal 10-20 [facility] Comment on above: Order Comment: Call MD with results STAT Result Comment: Canc elled via OM: MD Ordered Performed By: #### L 500.2500 ####[facility] [address] [place], [address] Calcium Normal 7.6-11.0 [facility] Comment on above: Order Comment: Call MD with results STAT Result Comment: Canc elled via OM: MD Ordered Performed By: #### L 500.2500 ####[facility] [address] [place], [address] CL Normal 98-108 [facility] Comment on above: Order Comment: Call MD with results STAT Result Comment: Canc elled via OM: MD Ordered Performed By: #### L 500.2500 ####[facility] [address] [place], [address] CO2 Normal 21.0-32.0 [facility] Comment on above: Order Comment: Call MD with results STAT Result Comment: Canc elled via OM: MD Ordered Performed By: #### L 500.2500 ####[facility] [address] [place], [address] CREAT,SERUM Normal 0.70-1.20 [facility] Comment on above: Order Comment: Call MD with results STAT Result Comment: Canc elled via OM: MD Ordered Performed By: #### L 500.2500 ####[facility] [address] [place], [address] eGFR Normal >60 [facility] Comment on above: Order Comment: Call MD with results STAT Result Comment: Canc elled via OM: MD Ordered Performed By: #### L 500.2500 ####[facility] [address] [place], [address] GAP Normal 5-15 [facility] Comment on above: Order Comment: Call MD with results STAT Result Comment: Canc elled via OM: MD Ordered Performed By: #### L 500.2500 ####[facility] [address] [place], [address] GLU Normal 70-99 [facility] Comment on above: Order Comment: Call MD with results STAT Result Comment: Canc elled via OM: MD Ordered Performed By: #### L 500.2500 ####[facility] [address] [place], [address] Potassium Normal 3.3-5.1 [facility] Comment on above: Order Comment: Call MD with results STAT Result Comment: Canc elled via OM: MD Ordered Performed By: #### L 500.2500 ####[facility] [address] [place], [address] Basic Metabolic Profile (BMP) Normal 133-145 [facility] Comment on above: Order Comment: Call MD with results STAT Result Comment: Canc elled via OM: MD Ordered Performed By: #### L 500.2500 ####[facility] [address] [place], [address] BUN Normal 4-19 [facility] Comment on above: Order Comment: Call MD with results STAT Result Comment: Canc elled via OM: MD Ordered Performed By: #### L 500.2500 ####[facility] [address] [place], [address] BUN/CRE Normal 10-20 [facility] Comment on above: Order Comment: Call MD with results STAT Result Comment: Canc elled via OM: MD Ordered Performed By: #### L 500.2500 ####[facility] [address] [place], [address] Calcium Normal 7.6-11.0 [facility] Comment on above: Order Comment: Call MD with results STAT Result Comment: Canc elled via OM: MD Ordered Performed By: #### L 500.2500 ####[facility] [address] [place], [address] CL Normal 98-108 [facility] Comment on above: Order Comment: Call MD with results STAT Result Comment: Canc elled via OM: MD Ordered Performed By: #### L 500.2500 ####[facility] [address] [place], [address] CO2 Normal 21.0-32.0 [facility] Comment on above: Order Comment: Call MD with results STAT Result Comment: Canc elled via OM: MD Ordered Performed By: #### L 500.2500 ####[facility] [address] [place], [address] CREAT,SERUM Normal 0.70-1.20 [facility] Comment on above: Order Comment: Call MD with results STAT Result Comment: Canc elled via OM: MD Ordered Performed By: #### L 500.2500 ####[facility] [address] [place], [address] eGFR Normal >60 [facility] Comment on above: Order Comment: Call MD with results STAT Result Comment: Canc elled via OM: MD Ordered Performed By: #### L 500.2500 ####[facility] [address] [place], [address] GAP Normal 5-15 [facility] Comment on above: Order Comment: Call MD with results STAT Result Comment: Canc elled via OM: MD Ordered Performed By: #### L 500.2500 ####[facility] [address] [place], [address] GLU Normal 70-99 [facility] Comment on above: Order Comment: Call MD with results STAT Result Comment: Canc elled via OM: MD Ordered Performed By: #### L 500.2500 ####[facility] [address] [place], [address] Potassium Normal 3.3-5.1 [facility] Comment on above: Order Comment: Call MD with results STAT Result Comment: Canc elled via OM: MD Ordered Performed By: #### L 500.2500 ####[facility] [address] [place], [address] Basic Metabolic Profile (BMP) Normal 133-145 [facility] Comment on above: Order Comment: Call MD with results STAT Result Comment: Canc elled via OM: MD Ordered Performed By: #### L 500.2500 ####[facility] [address] [place], [address] BUN Normal 4-19 [facility] Comment on above: Order Comment: Call MD with results STAT Result Comment: Canc elled via OM: MD Ordered Performed By: #### L 500.2500 ####[facility] [address] [place], [address] BUN/CRE Normal 10-20 [facility] Comment on above: Order Comment: Call MD with results STAT Result Comment: Canc elled via OM: MD Ordered Performed By: #### L 500.2500 ####[facility] [address] [place], [address] Calcium Normal 7.6-11.0 [facility] Comment on above: Order Comment: Call MD with results STAT Result Comment: Canc elled via OM: MD Ordered Performed By: #### L 500.2500 ####[facility] [address] [place], [address] CL Normal 98-108 [facility] Comment on above: Order Comment: Call MD with results STAT Result Comment: Canc elled via OM: MD Ordered Performed By: #### L 500.2500 ####[facility] [address] [place], [address] CO2 Normal 21.0-32.0 [facility] Comment on above: Order Comment: Call MD with results STAT Result Comment: Canc elled via OM: MD Ordered Performed By: #### L 500.2500 ####[facility] [address] [place], [address] CREAT,SERUM Normal 0.70-1.20 [facility] Comment on above: Order Comment: Call MD with results STAT Result Comment: Canc elled via OM: MD Ordered Performed By: #### L 500.2500 ####[facility] [address] [place], [address] eGFR Normal >60 [facility] Comment on above: Order Comment: Call MD with results STAT Result Comment: Canc elled via OM: MD Ordered Performed By: #### L 500.2500 ####[facility] [address] [place], [address] GAP Normal 5-15 [facility] Comment on above: Order Comment: Call MD with results STAT Result Comment: Canc elled via OM: MD Ordered Performed By: #### L 500.2500 ####[facility] [address] [place], [address] GLU Normal 70-99 [facility] Comment on above: Order Comment: Call MD with results STAT Result Comment: Canc elled via OM: MD Ordered Performed By: #### L 500.2500 ####[facility] [address] [place], [address] Potassium Normal 3.3-5.1 [facility] Comment on above: Order Comment: Call MD with results STAT Result Comment: Canc elled via OM: MD Ordered Performed By: #### L 500.2500 ####[facility] [address] [place], [address] Basic Metabolic Profile (BMP) Normal 133-145 [facility] Comment on above: Order Comment: Call MD with results STAT Result Comment: Pati coleman via OM: MD Ordered Performed By: #### L 500.2500 ####[facility] [address] [place], [address] BUN/CRE 6.1 RATIO Low 10-20 [facility] Comment on above: Performed By: #### L 500.2500 ####[facility] [address] [place], [address] Calcium [Mass/Vol] 7.9 mg/dL Normal 7.6-11.0 [facility] Comment on above: Performed By: #### L 500.2500 ####[facility] [address] [place], [address] Chloride [Moles/Vol] 111 mmol/L High 98-108 [facility] Comment on above: Performed By: #### L 500.2500 ####[facility] [address] [place], [address] CO2 [Moles/Vol] 20.1 mmol/L Low 21.0-32.0 [facility] Comment on above: Performed By: #### L 500.2500 ####[facility] [address] [place], [address] Creatinine [Mass/Vol] 0.76 mg/dL Normal 0.70-1.20 [facility] Comment on above: Performed By: #### L 500.2500 ####[facility] [address] [place], [address] ECRCL 133.37 ml/min Normal 50-250 [facility] Comment on above: Performed By: #### L 500.2500 ####[facility] [address] [place], [address] GAP 9 Normal 5-15 [facility] Comment on above: Performed By: #### L 500.2500 ####[facility] [address] [place], [address] GFR/1.73 sq M.predicted among non-blacks MDRD (S/P/Bld) [Vol rate/Area] 107 mL/min/{1.73_m2} Normal >60 [facility] Comment on above: Result Comment: mL/m in/1.73m2 CKD-EPI Creatinine Equation (2020) Performed By: #### L 500.2500 ####[facility] [address] [place], [address] Glucose [Mass/Vol] 127 mg/dL High 70-99 [facility] Comment on above: Performed By: #### L 500.2500 ####[facility] [address] [place], [address] Potassium [Moles/Vol] 3.9 mmol/L Normal 3.3-5.1 [facility] Comment on above: Performed By: #### L 500.2500 ####[facility] [address] [place], [address] Sodium [Moles/Vol] 140 mmol/L Normal 133-145 [facility] Comment on above: Performed By: #### L 500.2500 ####[facility] [address] [place], [address] Urea nitrogen [Mass/Vol] 5 mg/dL Normal 4-19 [facility] Comment on above: Performed By: #### L 500.2500 ####[facility] [address] [place], [address] BUN/CRE 6.5 RATIO Low 10-20 [facility] Comment on above: Order Comment: Call MD with results STAT Performed By: #### L 500.2500 ####[facility] [address] [place], [address] Calcium [Mass/Vol] 8.3 mg/dL Normal 7.6-11.0 [facility] Comment on above: Order Comment: Call MD with results STAT Performed By: #### L 500.2500 ####[facility] [address] [place], [address] Chloride [Moles/Vol] 109 mmol/L High 98-108 [facility] Comment on above: Order Comment: Call MD with results STAT Performed By: #### L 500.2500 ####[facility] [address] [place], [address] CO2 [Moles/Vol] 20.4 mmol/L Low 21.0-32.0 [facility] Comment on above: Order Comment: Call MD with results STAT Performed By: #### L 500.2500 ####[facility] [address] [place], [address] Creatinine [Mass/Vol] 0.78 mg/dL Normal 0.70-1.20 [facility] Comment on above: Order Comment: Call MD with results STAT Performed By: #### L 500.2500 ####[facility] [address] [place], [address] ECRCL 129.95 ml/min Normal 50-250 [facility] Comment on above: Order Comment: Call MD with results STAT Performed By: #### L 500.2500 ####[facility] [address] [place], [address] GAP 11 Normal 5-15 [facility] Comment on above: Order Comment: Call MD with results STAT Performed By: #### L 500.2500 ####[facility] [address] [place], [address] GFR/1.73 sq M.predicted among non-blacks MDRD (S/P/Bld) [Vol rate/Area] 103 mL/min/{1.73_m2} Normal >60 [facility] Comment on above: Order Comment: Call MD with results STAT Result Comment: mL/m in/1.73m2 CKD-EPI Creatinine Equation (2020) Performed By: #### L 500.2500 ####[facility] [address] [place], [address] Glucose [Mass/Vol] 71 mg/dL Normal 70-99 [facility] Comment on above: Order Comment: Call MD with results STAT Performed By: #### L 500.2500 ####[facility] [address] [place], [address] Potassium [Moles/Vol] 3.4 mmol/L Normal 3.3-5.1 [facility] Comment on above: Order Comment: Call MD with results STAT Performed By: #### L 500.2500 ####[facility] [address] [place], [address] Sodium [Moles/Vol] 141 mmol/L Normal 133-145 [facility] Comment on above: Order Comment: Call MD with results STAT Performed By: #### L 500.2500 ####[facility] [address] [place], [address] Urea nitrogen [Mass/Vol] 5 mg/dL Normal 4-19 [facility] Comment on above: Order Comment: Call MD with results STAT Performed By: #### L 500.2500 ####[facility] [address] [place], [address] BUN/CRE 7.2 RATIO Low 10-20 [facility] Comment on above: Order Comment: Call MD with results STAT Performed By: #### L 500.2500 ####[facility] [address] [place], [address] Calcium [Mass/Vol] 8.2 mg/dL Normal 7.6-11.0 [facility] Comment on above: Order Comment: Call MD with results STAT Performed By: #### L 500.2500 ####[facility] [address] [place], [address] Chloride [Moles/Vol] 108 mmol/L Normal 98-108 [facility] Comment on above: Order Comment: Call MD with results STAT Performed By: #### L 500.2500 ####[facility] [address] [place], [address] CO2 [Moles/Vol] 19.1 mmol/L Low 21.0-32.0 [facility] Comment on above: Order Comment: Call MD with results STAT Performed By: #### L 500.2500 ####[facility] [address] [place], [address] Creatinine [Mass/Vol] 0.84 mg/dL Normal 0.70-1.20 [facility] Comment on above: Order Comment: Call MD with results STAT Performed By: #### L 500.2500 ####[facility] [address] [place], [address] ECRCL 120.61 ml/min Normal 50-250 [facility] Comment on above: Order Comment: Call MD with results STAT Performed By: #### L 500.2500 ####[facility] [address] [place], [address] GAP 13 Normal 5-15 [facility] Comment on above: Order Comment: Call MD with results STAT Performed By: #### L 500.2500 ####[facility] [address] [place], [address] GFR/1.73 sq M.predicted among non-blacks MDRD (S/P/Bld) [Vol rate/Area] 94 mL/min/{1.73_m2} Normal >60 [facility] Comment on above: Order Comment: Call MD with results STAT Result Comment: mL/m in/1.73m2 CKD-EPI Creatinine Equation (2020) Performed By: #### L 500.2500 ####[facility] [address] [place], [address] Glucose [Mass/Vol] 189 mg/dL High 70-99 [facility] Comment on above: Order Comment: Call MD with results STAT Performed By: #### L 500.2500 ####[facility] [address] [place], [address] Potassium [Moles/Vol] 3.7 mmol/L Normal 3.3-5.1 [facility] Comment on above: Order Comment: Call MD with results STAT Performed By: #### L 500.2500 ####[facility] [address] [place], [address] Sodium [Moles/Vol] 139 mmol/L Normal 133-145 [facility] Comment on above: Order Comment: Call MD with results STAT Performed By: #### L 500.2500 ####[facility] [address] [place], [address] Urea nitrogen [Mass/Vol] 6 mg/dL Normal 4-19 [facility] Comment on above: Order Comment: Call MD with results STAT Performed By: #### L 500.2500 ####[facility] [address] [place], [address] Bedside Glucoseon 01-01-2025 FINGERSTICK GLU 113 mg/dL High 74-106 [facility] Comment on above: Result Comment: BULL GEMENT OF PATIENT CARE PER NURSING PROTOCOL Performed By: #### L 501.080 ####[facility] [address] [place], [address] FINGERSTICK GLU 119 mg/dL High 74-106 [facility] Comment on above: Result Comment: BULL GEMENT OF PATIENT CARE PER NURSING PROTOCOL Performed By: #### L 501.080 ####[facility] [address] [place], [address] FINGERSTICK GLU 104 mg/dL Normal 74-106 [facility] Comment on above: Result Comment: BULL GEMENT OF PATIENT CARE PER NURSING PROTOCOL Performed By: #### L 501.080 ####[facility] [address] [place], [address] FINGERSTICK GLU 110 mg/dL High 74-106 [facility] Comment on above: Result Comment: BULL GEMENT OF PATIENT CARE PER NURSING PROTOCOL Performed By: #### L 501.080 ####[facility] [address] [place], [address] FINGERSTICK GLU 98 mg/dL Normal 74-106 [facility] Comment on above: Result Comment: BULL GEMENT OF PATIENT CARE PER NURSING PROTOCOL Performed By: #### L 501.080 ####[facility] [address] [place], [address] FINGERSTICK GLU 62 mg/dL Low 74-106 [facility] Comment on above: Result Comment: BULL GEMENT OF PATIENT CARE PER NURSING PROTOCOL Performed By: #### L 501.080 ####[facility] [address] [place], [address] FINGERSTICK GLU 112 mg/dL High 74-106 [facility] Comment on above: Result Comment: BULL GEMENT OF PATIENT CARE PER NURSING PROTOCOL Performed By: #### L 501.080 ####[facility] [address] [place], [address] FINGERSTICK GLU 134 mg/dL High 74-106 [facility] Comment on above: Result Comment: BULL GEMENT OF PATIENT CARE PER NURSING PROTOCOL Performed By: #### L 501.080 ####[facility] [address] [place], [address] FINGERSTICK GLU 144 mg/dL High 74-106 [facility] Comment on above: Result Comment: BULL GEMENT OF PATIENT CARE PER NURSING PROTOCOL Performed By: #### L 501.080 ####[facility] [address] [place], [place], [address] FINGERSTICK GLU 179 mg/dL High 74-106 [facility] Comment on above: Result Comment: BULL SAMAYOA OF PATIENT CARE PER NURSING PROTOCOL Performed By: #### L 501.080 ####[facility] [address] [place], [place], [address] Beta-Hydroxbytyrateon 2024 BETA-HYDROXYBUT 0.0 mmol/L Normal 0.0-0.3 [facility] Comment on above: Performed By: #### L 501.6901 ####[facility] [address] [place], [place], [address] Beta-hydroxybutyrateOrdered By: Dewayne Duff on 01-01-2025 Beta hydroxybutyrate [Mass/Vol] 0.0 mmol/L 0.0-0.3 [facility] CO2 (BldV) [Moles/Vol]Ordere d By: Dewayne Duff on 01-01-2025 CO2 [Moles/Vol] 23 mmol/L 23-33 [facility] Carbon dioxide, total [Moles /volume] in Central venous bloodOrdered By: Dewayne Duff on 01-01-2025 CO2 [Moles/Vol] 20.1 mmol/L Low 21.0-32.0 [facility] Chloride assayOrdered By: Gaurang Duff on 01-01-2025 Chloride [Moles/Vol] 111 mmol/L High 98-108 [facility] Discharge Instructionon 12-11 Discharge Instruction Normal [facility] Glomerular filtration rate ( GFR) estimation/1.73 sq m using serum, plasma, or whole bOrdered By: Dewayne Duff on 01-01-2025 GFR/1.73 sq M.predicted among non-blacks MDRD (S/P/Bld) [Vol rate/Area] 107 mL/min/{1.73_m2} >60 [facility] Glucose measurement at bedsi deOrdered By: Frantz Coulter on 01-01-2025 Glucose [Mass/Vol] 113 mg/dL High 74-106 [facility] No Panel InformationOrdered By: Dewayne Duff on 01-01-2025 ESTRELLA [facility] Not entered [facility] Potassium measurement (mass/ volume)Ordered By: Dewayne Duff on 01-01-2025 Potassium (Unsp spec) [Mass/Vol] 3.9 mmol/L 3.3-5.1 [facility] Serum creatinine measurement (mass/volume)Ordered By: Dewayne Duff on 01-01-2025 Creatinine [Mass/Vol] 0.76 mg/dL 0.70-1.20 [facility] Serum glucose measurement (m ass/volume)Ordered By: Dewayne Duff on 01-01-2025 Glucose [Mass/Vol] 127 mg/dL High 70-99 [facility] Serum or plasma calcium uhssein urement (mass/volume)Ordered By: Dewayne Duff on 01-01-2025 Calcium [Mass/Vol] 7.9 mg/dL 7.6-11.0 [facility] Serum or plasma urea nitroge n measurement (mass/volume)Ordered By: Dewayne Duff on 01-01-2025 Urea nitrogen [Mass/Vol] 5 mg/dL 4-19 [facility] Sodium levelOrdered By: Fletcher Duff on 01-01-2025 Sodium [Moles/Vol] 140 mmol/L 133-145 [facility] Urine Cultureon 01-01-2025 [facility] Mixed Gram Positive Organisms [place] Count 25,000-50,000 MIX[facility] Mixed contaminants. Submit a new specimen if indicated. Normal [facility] Comment on above: Performed By: #### M 100.2200 ####[facility] [address] [place], [place], [address] Venous Blood Gason Blood Gas Type ESTRELLA Normal [facility] Comment on above: Performed By: #### L 9000.0810 ####[facility] [address] [place], [address] CO2 [Moles/Vol] 23 mmol/L Normal 23-33 [facility] Comment on above: Performed By: #### L 9000.0810 ####[facility] [address] [place], [address] FI02 21.0 Normal [facility] Comment on above: Performed By: #### L 900.0810 ####[facility] [address] [place], [address] HCO3 (Bld) [Moles/Vol] 22 mmol/L Normal 22-26 [facility] Comment on above: Performed By: #### L 8999.0810 ####[facility] [address] [place], [address] O2 Delivery Dev Not entered Normal [facility] Comment on above: Performed By: #### L 8999.0810 ####[facility] [address] [place], [address] SITE Not entered Normal [facility] Comment on above: Performed By: #### L 8999.0810 ####[facility] [address] [place], [address] VBG BE -3 mmol/L Low -1.0-3.5 [facility] Comment on above: Performed By: #### L 900.0810 ####[facility] [address] [place], [address] VBG pCO2 35.7 mmHg Low 41-51 [facility] Comment on above: Performed By: #### L 900.0810 ####[facility] [address] [place], [address] VBG pH 7.40 Normal 7.32-7.42 [facility] Comment on above: Performed By: #### L 900.0810 ####[facility] [address] [place], [address] VBG PO2 53 mmHg High 25-40 [facility] Comment on above: Performed By: #### L 900.0810 ####[facility] [address] [place], [address] VBG SO2 87 High 50-70 [facility] Comment on above: Performed By: #### L 9000.0810 ####[facility] [address] [place], [address] Venous blood base excess kedar surementOrdered By: Dewayne Duff on 01-01-2025 Base excess Calc (BldV) [Moles/Vol] -3 mmol/L Low -1.0-3.5 [facility] Venous blood bicarbonate kedar surementOrdered By: Dewayne Duff on 01-01-2025 HCO3 (Bld) [Moles/Vol] 22 mmol/L [facility] Venous blood pH measurementO rdered By: Dewayne Duff on 01-01-2025 pH (BldV) 7.40 [pH] 7.32-7.42 [facility] Venous blood partial pressur e of carbon dioxide measurementOrdered By: Dewayne Duff on 01-01-2025 CO2 (BldV) [Partial pressure] 35.7 mm[Hg] Low 41-51 [facility] Venous blood partial pressur e of oxygen measurementOrdered By: Dewayne Duff on 01-01-2025 Oxygen (BldV) [Partial pressure] 53 mm[Hg] High 25-40 [facility] 12 Lead EKGon 12-31-2024 12 Lead EKG Normal [facility] Absolute lymphocyte countOrd ered By: Poli Barfield on 12-31-2024 Lymphocytes Auto (Unsp spec) [#/Vol] 2.74 10*3/uL 0.83-4.51 [facility] Anion gap in Serum or Plasma Ordered By: Poli Barfield on 12-31-2024 Anion gap [Moles/Vol] 13 mmol/L 11-23 [facility] Anion gap in Serum or Plasma Ordered By: David Bani on 12-31-2024 Anion gap [Moles/Vol] 12 mmol/L 11-23 [facility] Automated lymphocyte count a s percentage of total leukocytesOrdered By: Poli Barfield on 12-31-2024 Lymphocytes/100 WBC Auto (Unsp spec) 27.7 % 19-41 [facility] BUN/creatinine ratioOrdered By: Poli Barfield on 12-31-2024 Urea nitrogen/Creatinine [Mass ratio] 8.0 mg/mg Low 04-30 [facility] BUN/creatinine ratioOrdered By: David Bain on 12-31-2024 Urea nitrogen/Creatinine [Mass ratio] 10.2 mg/mg 04-30 [facility] Basic Metabolic Profile (BMP )on 12-31-2024 BUN/CRE 8.0 RATIO Low 04-30 [facility] Comment on above: Performed By: #### L 500.2500 ####[facility] [address] [place], [address] Calcium [Mass/Vol] 8.2 mg/dL Normal 7.6-11.0 [facility] Comment on above: Performed By: #### L 500.2500 ####[facility] [address] [place], [address] Chloride [Moles/Vol] 108 mmol/L Normal 98-108 [facility] Comment on above: Performed By: #### L 500.2500 ####[facility] [address] [place], [address] CO2 [Moles/Vol] 18.2 mmol/L Low 21.0-32.0 [facility] Comment on above: Performed By: #### L 500.2500 ####[facility] [address] [place], [address] Creatinine [Mass/Vol] 0.85 mg/dL Normal 0.70-1.20 [facility] Comment on above: Performed By: #### L 500.2500 ####[facility] [address] [place], [address] ECRCL 118.14 ml/min Normal 50-250 [facility] Comment on above: Performed By: #### L 500.2500 ####[facility] [address] [place], [address] GAP 13 Normal 5-15 [facility] Comment on above: Performed By: #### L 500.2500 ####[facility] [address] [place], [address] GFR/1.73 sq M.predicted among non-blacks MDRD (S/P/Bld) [Vol rate/Area] 93 mL/min/{1.73_m2} Normal >60 [facility] Comment on above: Result Comment: mL/m in/1.73m2 CKD-EPI Creatinine Equation (2020) Performed By: #### L 500.2500 ####[facility] [address] [place], [address] Glucose [Mass/Vol] 177 mg/dL High 70-99 [facility] Comment on above: Performed By: #### L 500.2500 ####[facility] [address] [place], [address] Potassium [Moles/Vol] 3.7 mmol/L Normal 3.3-5.1 [facility] Comment on above: Performed By: #### L 500.2500 ####[facility] [address] [place], [address] Sodium [Moles/Vol] 139 mmol/L Normal 133-145 [facility] Comment on above: Performed By: #### L 500.2500 ####[facility] [address] [place], [address] Urea nitrogen [Mass/Vol] 7 mg/dL Normal 4-19 [facility] Comment on above: Performed By: #### L 500.2500 ####[facility] [address] [place], [address] BUN/CRE 7.1 RATIO Low 10-20 [facility] Comment on above: Performed By: #### L 500.2500, L501.6901 ####[facility] [address] [place], [address] Calcium [Mass/Vol] 9.1 mg/dL Normal 7.6-11.0 [facility] Comment on above: Performed By: #### L 500.2500, L501.6901 ####[facility] [address] [place], [address] Chloride [Moles/Vol] 105 mmol/L Normal 98-108 [facility] Comment on above: Performed By: #### L 500.2500, L501.6901 ####[facility] [address] [place], [address] CO2 [Moles/Vol] 20.4 mmol/L Low 21.0-32.0 [facility] Comment on above: Performed By: #### L 500.2500, L501.6901 ####[facility] [address] [place], [address] Creatinine [Mass/Vol] 0.99 mg/dL Normal 0.70-1.20 [facility] Comment on above: Performed By: #### L 500.2500, L501.6901 ####[facility] [address] [place], [address] ECRCL 101.44 ml/min Normal 50-250 [facility] Comment on above: Performed By: #### L 500.2500, L501.6901 ####[facility] [address] [place], [address] GAP 15 Normal 5-15 [facility] Comment on above: Performed By: #### L 500.2500, L501.6901 ####[facility] [address] [place], [address] GFR/1.73 sq M.predicted among non-blacks MDRD (S/P/Bld) [Vol rate/Area] 77 mL/min/{1.73_m2} Normal >60 [facility] Comment on above: Result Comment: mL/m in/1.73m2 CKD-EPI Creatinine Equation (2020) Performed By: #### L 500.2500, L501.6901 ####[facility] [address] [place], [address] Glucose [Mass/Vol] 160 mg/dL High 70-99 [facility] Comment on above: Performed By: #### L 500.2500, L501.6901 ####[facility] [address] [place], [address] Potassium [Moles/Vol] 3.8 mmol/L Normal 3.3-5.1 [facility] Comment on above: Performed By: #### L 500.2500, L501.6901 ####[facility] [address] [place], [address] Sodium [Moles/Vol] 140 mmol/L Normal 133-145 [facility] Comment on above: Performed By: #### L 500.2500, L501.6901 ####[facility] [address] [place], [address] Urea nitrogen [Mass/Vol] 7 mg/dL Normal 4-19 [facility] Comment on above: Performed By: #### L 500.2500, L501.6901 ####[facility] [address] [place], [address] BUN Normal -19 [facility] Comment on above: Order Comment: Call MD with results STAT Result Comment: Canc elled via OM: Order cancelled - Patient discharged Performed By: #### L 500.2500 ####[facility] [address] [place], [address] BUN/CRE Normal 10-20 [facility] Comment on above: Order Comment: Call MD with results STAT Result Comment: Canc elled via OM: Order cancelled - Patient discharged Performed By: #### L 500.2500 ####[facility] [address] [place], [address] Calcium Normal 7.6-11.0 [facility] Comment on above: Order Comment: Call MD with results STAT Result Comment: Canc elled via OM: Order cancelled - Patient discharged Performed By: #### L 500.2500 ####[facility] [address] [place], [address] CL Normal 98-108 [facility] Comment on above: Order Comment: Call MD with results STAT Result Comment: Canc elled via OM: Order cancelled - Patient discharged Performed By: #### L 500.2500 ####[facility] [address] [place], [address] CO2 Normal 21.0-32.0 [facility] Comment on above: Order Comment: Call MD with results STAT Result Comment: Canc elled via OM: Order cancelled - Patient discharged Performed By: #### L 500.2500 ####[facility] [address] [place], [address] CREAT,SERUM Normal 0.70-1.20 [facility] Comment on above: Order Comment: Call MD with results STAT Result Comment: Canc elled via OM: Order cancelled - Patient discharged Performed By: #### L 500.2500 ####[facility] [address] [place], [address] eGFR Normal >60 [facility] Comment on above: Order Comment: Call MD with results STAT Result Comment: Canc elled via OM: Order cancelled - Patient discharged Performed By: #### L 500.2500 ####[facility] [address] [place], [address] GAP Normal 5-15 [facility] Comment on above: Order Comment: Call MD with results STAT Result Comment: Canc elled via OM: Order cancelled - Patient discharged Performed By: #### L 500.2500 ####[facility] [address] [place], [address] GLU Normal 70-99 [facility] Comment on above: Order Comment: Call MD with results STAT Result Comment: Canc elled via OM: Order cancelled - Patient discharged Performed By: #### L 500.2500 ####[facility] [address] [place], [address] Potassium Normal 3.3-5.1 [facility] Comment on above: Order Comment: Call MD with results STAT Result Comment: Canc elled via OM: Order cancelled - Patient discharged Performed By: #### L 500.2500 ####[facility] [address] [place], [address] Basic Metabolic Profile (BMP) Normal 133-145 [facility] Comment on above: Order Comment: Call MD with results STAT Result Comment: Canc elled via OM: Order cancelled - Patient discharged Performed By: #### L 500.2500 ####[facility] [address] [place], [address] BUN Normal 4-19 [facility] Comment on above: Order Comment: Call MD with results STAT Result Comment: Canc elled via OM: Order cancelled - Patient discharged Performed By: #### L 500.2500 ####[facility] [address] [place], [address] BUN/CRE Normal 10-20 [facility] Comment on above: Order Comment: Call MD with results STAT Result Comment: Canc elled via OM: Order cancelled - Patient discharged Performed By: #### L 500.2500 ####[facility] [address] [place], [address] Calcium Normal 7.6-11.0 [facility] Comment on above: Order Comment: Call MD with results STAT Result Comment: Canc elled via OM: Order cancelled - Patient discharged Performed By: #### L 500.2500 ####[facility] [address] [place], [address] CL Normal 98-108 [facility] Comment on above: Order Comment: Call MD with results STAT Result Comment: Canc elled via OM: Order cancelled - Patient discharged Performed By: #### L 500.2500 ####[facility] [address] [place], [address] CO2 Normal 21.0-32.0 [facility] Comment on above: Order Comment: Call MD with results STAT Result Comment: Canc elled via OM: Order cancelled - Patient discharged Performed By: #### L 500.2500 ####[facility] [address] [place], [address] CREAT,SERUM Normal 0.70-1.20 [facility] Comment on above: Order Comment: Call MD with results STAT Result Comment: Canc elled via OM: Order cancelled - Patient discharged Performed By: #### L 500.2500 ####[facility] [address] [place], [address] eGFR Normal >60 [facility] Comment on above: Order Comment: Call MD with results STAT Result Comment: Canc elled via OM: Order cancelled - Patient discharged Performed By: #### L 500.2500 ####[facility] [address] [place], [address] GAP Normal 5-15 [facility] Comment on above: Order Comment: Call MD with results STAT Result Comment: Canc elled via OM: Order cancelled - Patient discharged Performed By: #### L 500.2500 ####[facility] [address] [place], [address] GLU Normal 70-99 [facility] Comment on above: Order Comment: Call MD with results STAT Result Comment: Canc elled via OM: Order cancelled - Patient discharged Performed By: #### L 500.2500 ####[facility] [address] [place], [address] Potassium Normal 3.3-5.1 [facility] Comment on above: Order Comment: Call MD with results STAT Result Comment: Canc elled via OM: Order cancelled - Patient discharged Performed By: #### L 500.2500 ####[facility] [address] [place], [address] Basic Metabolic Profile (BMP) Normal 133-145 [facility] Comment on above: Order Comment: Call MD with results STAT Result Comment: Canc elled via OM: Order cancelled - Patient discharged Performed By: #### L 500.2500 ####[facility] [address] [place], [address] BUN/CRE 10.2 RATIO Normal 10-20 [facility] Comment on above: Order Comment: Call MD with results STAT Performed By: #### L 500.2500 ####[facility] [address] [place], [address] Calcium [Mass/Vol] 8.2 mg/dL Normal 7.6-11.0 [facility] Comment on above: Order Comment: Call MD with results STAT Performed By: #### L 500.2500 ####[facility] [address] [place], [address] Chloride [Moles/Vol] 106 mmol/L Normal 98-108 [facility] Comment on above: Order Comment: Call MD with results STAT Performed By: #### L 500.2500 ####[facility] [address] [place], [address] CO2 [Moles/Vol] 21.3 mmol/L Normal 21.0-32.0 [facility] Comment on above: Order Comment: Call MD with results STAT Performed By: #### L 500.2500 ####[facility] [address] [place], [address] Creatinine [Mass/Vol] 0.82 mg/dL Normal 0.70-1.20 [facility] Comment on above: Order Comment: Call MD with results STAT Performed By: #### L 500.2500 ####[facility] [address] [place], [address] ECRCL 123.80 ml/min Normal 50-250 [facility] Comment on above: Order Comment: Call MD with results STAT Performed By: #### L 500.2500 ####[facility] [address] [place], [address] GAP 12 Normal 5-15 [facility] Comment on above: Order Comment: Call MD with results STAT Performed By: #### L 500.2500 ####[facility] [address] [place], [address] GFR/1.73 sq M.predicted among non-blacks MDRD (S/P/Bld) [Vol rate/Area] 97 mL/min/{1.73_m2} Normal >60 [facility] Comment on above: Order Comment: Call MD with results STAT Result Comment: mL/m in/1.73m2 CKD-EPI Creatinine Equation (2020) Performed By: #### L 500.2500 ####[facility] [address] [place], [address] Glucose [Mass/Vol] 129 mg/dL High 70-99 [facility] Comment on above: Order Comment: Call MD with results STAT Performed By: #### L 500.2500 ####[facility] [address] [place], [address] Potassium [Moles/Vol] 3.6 mmol/L Normal 3.3-5.1 [facility] Comment on above: Order Comment: Call MD with results STAT Performed By: #### L 500.2500 ####[facility] [address] [place], [address] Sodium [Moles/Vol] 138 mmol/L Normal 133-145 [facility] Comment on above: Order Comment: Call MD with results STAT Performed By: #### L 500.2500 ####[facility] [address] [place], [address] Urea nitrogen [Mass/Vol] 8 mg/dL Normal 4-19 [facility] Comment on above: Order Comment: Call MD with results STAT Performed By: #### L 500.2500 ####[facility] [address] [place], [address] BUN/CRE 10.6 RATIO Normal 10-20 [facility] Comment on above: Order Comment: Call MD with results STAT Performed By: #### L 500.2500 ####[facility] [address] [place], [address] Calcium [Mass/Vol] 8.0 mg/dL Normal 7.6-11.0 [facility] Comment on above: Order Comment: Call MD with results STAT Performed By: #### L 500.2500 ####[facility] [address] [place], [address] Chloride [Moles/Vol] 106 mmol/L Normal 98-108 [facility] Comment on above: Order Comment: Call MD with results STAT Performed By: #### L 500.2500 ####[facility] [address] [place], [address] CO2 [Moles/Vol] 23.0 mmol/L Normal 21.0-32.0 [facility] Comment on above: Order Comment: Call MD with results STAT Performed By: #### L 500.2500 ####[facility] [address] [place], [address] Creatinine [Mass/Vol] 0.84 mg/dL Normal 0.70-1.20 [facility] Comment on above: Order Comment: Call MD with results STAT Performed By: #### L 500.2500 ####[facility] [address] [place], [address] ECRCL 119.52 ml/min Normal 50-250 [facility] Comment on above: Order Comment: Call MD with results STAT Performed By: #### L 500.2500 ####[facility] [address] [place], [address] GAP 11 Normal 5-15 [facility] Comment on above: Order Comment: Call MD with results STAT Performed By: #### L 500.2500 ####[facility] [address] [place], [address] GFR/1.73 sq M.predicted among non-blacks MDRD (S/P/Bld) [Vol rate/Area] 94 mL/min/{1.73_m2} Normal >60 [facility] Comment on above: Order Comment: Call MD with results STAT Result Comment: mL/m in/1.73m2 CKD-EPI Creatinine Equation (2020) Performed By: #### L 500.2500 ####[facility] [address] [place], [address] Glucose [Mass/Vol] 106 mg/dL High 70-99 [facility] Comment on above: Order Comment: Call MD with results STAT Performed By: #### L 500.2500 ####[facility] [address] [place], [address] Potassium [Moles/Vol] 3.3 mmol/L Normal 3.3-5.1 [facility] Comment on above: Order Comment: Call MD with results STAT Result Comment: Hemo lysis present, Results??could be affected.?? Performed By: #### L 500.2500 ####[facility] [address] [place], [address] Sodium [Moles/Vol] 140 mmol/L Normal 133-145 [facility] Comment on above: Order Comment: Call MD with results STAT Performed By: #### L 500.2500 ####[facility] [address] [place], [address] Urea nitrogen [Mass/Vol] 9 mg/dL Normal 4-19 [facility] Comment on above: Order Comment: Call MD with results STAT Performed By: #### L 500.2500 ####[facility] [address] [place], [address] Basophil percentageOrdered B y: Poli Barfield on 12-31-2024 Basophils/100 WBC (Bld) 0.5 % 0-1 [facility] Bedside Glucoseon 12-31-2024 FINGERSTICK GLU 173 mg/dL High 74-106 [facility] Comment on above: Result Comment: BULL GEMENT OF PATIENT CARE PER NURSING PROTOCOL Performed By: #### L 501.080 ####[facility] [address] [place], [address] FINGERSTICK GLU 169 mg/dL High [facility]106 [facility] Comment on above: Result Comment: BULL GEMENT OF PATIENT CARE PER NURSING PROTOCOL Performed By: #### L 501.080 ####[facility] [address] [place], [address] FINGERSTICK GLU 152 mg/dL High -106 [facility] Comment on above: Result Comment: BULL GEMENT OF PATIENT CARE PER NURSING PROTOCOL Performed By: #### L 501.080 ####[facility] [address] [place], [address] FINGERSTICK GLU 140 mg/dL High -106 [facility] Comment on above: Result Comment: BULL GEMENT OF PATIENT CARE PER NURSING PROTOCOL Performed By: #### L 501.080 ####[facility] [address] [place], [address] FINGERSTICK GLU 146 mg/dL High 74-106 [facility] Comment on above: Result Comment: BULL GEMENT OF PATIENT CARE PER NURSING PROTOCOL Performed By: #### L 501.080 ####[facility] [address] [place], [address] FINGERSTICK GLU 147 mg/dL High -106 [facility] Comment on above: Result Comment: BULL GEMENT OF PATIENT CARE PER NURSING PROTOCOL Performed By: #### L 501.080 ####[facility] [address] [place], [address] FINGERSTICK GLU 136 mg/dL High 74-106 [facility] Comment on above: Result Comment: BULL GEMENT OF PATIENT CARE PER NURSING PROTOCOL Performed By: #### L 501.080 ####[facility] [address] [place], [address] FINGERSTICK GLU 120 mg/dL High 74-106 [facility] Comment on above: Result Comment: BULL GEMENT OF PATIENT CARE PER NURSING PROTOCOL Performed By: #### L 501.080 ####[facility] [address] [place], [address] FINGERSTICK GLU 112 mg/dL High 74-106 [facility] Comment on above: Result Comment: BULL GEMENT OF PATIENT CARE PER NURSING PROTOCOL Performed By: #### L 501.080 ####[facility] [address] [place], [address] FINGERSTICK GLU 106 mg/dL Normal 74-106 [facility] Comment on above: Result Comment: BULL GEMENT OF PATIENT CARE PER NURSING PROTOCOL Performed By: #### L 501.080 ####[facility] [address] [place], [address] FINGERSTICK GLU 84 mg/dL Normal 74-106 [facility] Comment on above: Result Comment: BULL GEMENT OF PATIENT CARE PER NURSING PROTOCOL Performed By: #### L 501.080 ####[facility] [address] [place], [address] FINGERSTICK GLU 99 mg/dL Normal 74-106 [facility] Comment on above: Result Comment: BULL GEMENT OF PATIENT CARE PER NURSING PROTOCOL Performed By: #### L 501.080 ####[facility] [address] [place], [address] FINGERSTICK GLU 104 mg/dL Normal 74-106 [facility] Comment on above: Result Comment: BULL GEMENT OF PATIENT CARE PER NURSING PROTOCOL Performed By: #### L 501.080 ####[facility] [address] [place], [address] FINGERSTICK GLU 130 mg/dL High 74-106 [facility] Comment on above: Result Comment: BULL GEMENT OF PATIENT CARE PER NURSING PROTOCOL Performed By: #### L 501.080 ####[facility] [address] [place], [address] Beta-Hydroxbytyrateon 2024 BETA-HYDROXYBUT 0.5 mmol/L High 0.0-0.3 [facility] Comment on above: Performed By: #### L 501.6901 ####[facility] [address] [place], [address] BETA-HYDROXYBUT 0.6 mmol/L High 0.0-0.3 [facility] Comment on above: Performed By: #### L 500.2500, L501.6901 ####[facility] [address] [place], [address] BETA-HYDROXYBUT 0.1 mmol/L Normal 0.0-0.3 [facility] Comment on above: Performed By: #### L 501.6901 ####[facility] [address] [place], [address] Beta-hydroxybutyrateOrdered By: Poli Barfield on 12-31-2024 Beta hydroxybutyrate [Mass/Vol] 0.5 mmol/L High 0.0-0.3 [facility] Beta-hydroxybutyrateOrdered By: Dewayne Duff on 12-31-2024 Beta hydroxybutyrate [Mass/Vol] 0.1 mmol/L 0.0-0.3 [facility] Bilirubin Test strip Ql (U)O rdered By: Poli Barfield on 12-31-2024 Bilirubin Ql (U) Negative Negative [facility] CBC W/Diff, Automatedon 06-2 Absolute Lymph 2.74 X10 3/uL Normal 0.83-4.51 [facility] Comment on above: Performed By: #### L 100.0100 ####[facility] [address] [place], [address] Absolute Neut 6.4 X10 3/uL Normal 2.0-7.7 [facility] Comment on above: Performed By: #### L 100.0100 ####[facility] [address] [place], [address] Basophils/100 WBC (Bld) 0.5 % Normal 0-1 [facility] Comment on above: Performed By: #### L 100.0100 ####[facility] [address] [place], [address] Eosinophils/100 WBC (Bld) 0.3 % Normal 0-5 [facility] Comment on above: Performed By: #### L 100.0100 ####[facility] [address] [place], [address] Erythrocyte distribution width (RBC) [Ratio] 14.3 % Normal 11.6-14.6 [facility] Comment on above: Performed By: #### L 100.0100 ####[facility] [address] [place], [address] Hematocrit (Bld) [Volume fraction] 38.0 % Normal 37-47 [facility] Comment on above: Performed By: #### L 100.0100 ####[facility] [address] [place], [address] Hemoglobin (Bld) [Mass/Vol] 12.4 g/dL Normal 12.0-15.0 [facility] Comment on above: Performed By: #### L 100.0100 ####[facility] [address] [place], [address] IG% 0.700 Normal 0.0-0.9 [facility] Comment on above: Result Comment: IG% - Immature Granulocytes (promyelocytes, myelocytes andmetamyelocytes) > 1% indicates that a LEFT SHIFT is Present. Performed By: #### L 100.0100 ####[facility] [address] [place], [address] Lymphocytes/100 WBC (Bld) 27.7 % Normal 19-41 [facility] Comment on above: Performed By: #### L 100.0100 ####[facility] [address] [place], [address] MCH (RBC) [Entitic mass] 27.4 pg Normal 27.0-32.0 [facility] Comment on above: Performed By: #### L 100.0100 ####[facility] [address] [place], [address] MCHC (RBC) [Mass/Vol] 32.6 g/dL Normal 32-36 [facility] Comment on above: Performed By: #### L 100.0100 ####[facility] [address] [place], [address] MCV (RBC) [Entitic vol] 83.9 fL Normal 81-99 [facility] Comment on above: Performed By: #### L 100.0100 ####[facility] [address] [place], [address] Monocytes/100 WBC (Bld) 6.4 % Normal 0-10 [facility] Comment on above: Performed By: #### L 100.0100 ####[facility] [address] [place], [address] Neutrophils/100 WBC (Bld) 64.4 % Normal 47-70 [facility] Comment on above: Performed By: #### L 100.0100 ####[facility] [address] [place], [address] Nucleated RBC (Bld) [#/Vol] 0 10*3/uL Normal 0-5 [facility] Comment on above: Performed By: #### L 100.0100 ####[facility] [address] [place], [address] Platelet mean volume (Bld) [Entitic vol] 9.5 fL Normal 6.2-12.0 [facility] Comment on above: Performed By: #### L 100.0100 ####[facility] [address] [place], [address] Platelets (Bld) [#/Vol] 400 10*3/uL Normal 150-450 [facility] Comment on above: Performed By: #### L 100.0100 ####[facility] [address] [place], [address] RBC (Bld) [#/Vol] 4.53 10*6/uL Normal 4.2-5.4 [facility] Comment on above: Performed By: #### L 100.0100 ####[facility] [address] [place], [address] RDW SD 43.4 fl Normal 35.1-43.9 [facility] Comment on above: Performed By: #### L 100.0100 ####[facility] [address] [place], [address] WBC (Bld) [#/Vol] 9.9 10*3/uL Normal 4.4-11.0 [facility] Comment on above: Performed By: #### L 100.0100 ####[facility] [address] [place], [address] Absolute Neut Normal 2.0-7.7 [facility] Comment on above: Result Comment: ERASTO ENT DISCHARGED Performed By: #### L 100.0100 ####[facility] [address] [place], [address] HCT Normal 37-47 [facility] Comment on above: Result Comment: ERASTO ENT DISCHARGED Performed By: #### L 100.0100 ####[facility] [address] [place], [address] HGB Normal 12.0-15.0 [facility] Comment on above: Result Comment: ERASTO ENT DISCHARGED Performed By: #### L 100.0100 ####[facility] [address] [place], [address] MCH Normal 27.0-32.0 [facility] Comment on above: Result Comment: ERASTO ENT DISCHARGED Performed By: #### L 100.0100 ####[facility] [address] [place], [address] MCHC Normal 32-36 [facility] Comment on above: Result Comment: ERASTO ENT DISCHARGED Performed By: #### L 100.0100 ####[facility] [address] [place], [address] MCV Normal 81-99 [facility] Comment on above: Result Comment: ERASTO ENT DISCHARGED Performed By: #### L 100.0100 ####[facility] [address] [place], [address] NEUT% Normal 47-70 [facility] Comment on above: Result Comment: ERASTO ENT DISCHARGED Performed By: #### L 100.0100 ####[facility] [address] [place], [address] PLT Normal 150-450 [facility] Comment on above: Result Comment: ERASTO ENT DISCHARGED Performed By: #### L 100.0100 ####[facility] [address] [place], [address] RBC Normal 4.2-5.4 [facility] Comment on above: Result Comment: ERASTO ENT DISCHARGED Performed By: #### L 100.0100 ####[facility] [address] [place], [address] RDW CV Normal 11.6-14.6 [facility] Comment on above: Result Comment: ERASTO ENT DISCHARGED Performed By: #### L 100.0100 ####[facility] [address] [place], [address] RDW SD Normal 35.1-43.9 [facility] Comment on above: Result Comment: ERASTO ENT DISCHARGED Performed By: #### L 100.0100 ####[facility] [address] [place], [address] WBC Normal 4.4-11.0 [facility] Comment on above: Result Comment: ERASTO ENT DISCHARGED Performed By: #### L 100.0100 ####[facility] [address] [place], [address] CO2 (BldV) [Moles/Vol]Ordere d By: Poli Barfield on 12-31-2024 CO2 [Moles/Vol] 25 mmol/L 23-33 [facility] Carbon dioxide, total [Moles /volume] in Central venous bloodOrdered By: Poli Barfield on 12-31-2024 CO2 [Moles/Vol] 18.2 mmol/L Low 21.0-32.0 [facility] Carbon dioxide, total [Moles /volume] in Central venous bloodOrdered By: David Bain on 12-31-2024 CO2 [Moles/Vol] 21.3 mmol/L 21.0-32.0 [facility] Chloride assayOrdered By: Demetrio Barfield on 12-31-2024 Chloride [Moles/Vol] 108 mmol/L 98-108 [facility] Chloride assayOrdered By: Dwaine Bain on 12-31-2024 Chloride [Moles/Vol] 106 mmol/L 98-108 [facility] Emergency Department Summary on 12-31-2024 Emergency Department Summary Normal [facility] Eosinophil percentageOrdered By: Poli Barfield on 12-31-2024 Eosinophils/100 WBC (Bld) 0.3 % 0-5 [facility] Erythrocyte distribution wid th ratioOrdered By: Poli Barfield on 12-31-2024 Erythrocyte distribution width (RBC) [Ratio] 14.3 % 11.6-14.6 [facility] Erythrocyte distribution wid th standard deviationOrdered By: Poli Barfield on 12-31-2024 Erythrocyte distribution width (RBC) [Ratio] 43.4 fl 35.1-43.9 [facility] Glomerular filtration rate ( GFR) estimation/1.73 sq m using serum, plasma, or whole bOrdered By: Poli Barfield on 12-31-2024 GFR/1.73 sq M.predicted among non-blacks MDRD (S/P/Bld) [Vol rate/Area] 93 mL/min/{1.73_m2} >60 [facility] Glomerular filtration rate ( GFR) estimation/1.73 sq m using serum, plasma, or whole bOrdered By: David Bain on 12-31-2024 GFR/1.73 sq M.predicted among non-blacks MDRD (S/P/Bld) [Vol rate/Area] 97 mL/min/{1.73_m2} >60 [facility] Comment on above: mL/min/1.73m2 CKD-EP I Creatinine Equation (2020) [facility]ucose [facility] deOrdered By: Poli Barfield on 12-31-2024 Glucose [Mass/Vol] 169 mg/dL High 74-106 [facility] Glucose measurement at [facility] deOrdered By: Daivd Bain on 12-31-2024 Glucose [Mass/Vol] 147 mg/dL High 74-106 [facility] Comment on above: MANAGEMENT OF PATIEN T CARE PER NURSING PROTOCOL H AND P Exam - [facility] 12-31-2024 H&P Exam - Hospitalist Normal [facility] Hematocrit Auto (Bld) [Volum e fraction]Ordered By: Poli Barfield on 12-31-2024 Hematocrit (Bld) [Volume fraction] 38.0 % 37-47 [facility] Hemoglobin A1con 12-31-2024 HbA1c (Bld) [Mass fraction] 8.5 % High <=5.6 [facility] Comment on above: Result Comment: Norm al < 5.7 % Prediabetic 5.7 - 6.4 % Diabetic >or= 6.5 % Please note range changes. Performed By: #### L 501.9985 ####[facility] [address] [place], [address] Hemoglobin A1c percentageOrd ered By: Davidgadiel Bain on 12-31-2024 HbA1c (Bld) [Mass fraction] 8.5 % High <5.7 [facility] Comment on above: Normal < 5.7 % Predi abetic 5.7 - 6.4 % Diabetic >or= 6.5 % Please note range changes. Hemoglobin measurementOrdere d By: Poli Barfield on 12-31-2024 Hemoglobin (Bld) [Mass/Vol] 12.4 g/dL 12.0-15.0 [facility] Immature granulocytes/100 WB C Auto (Bld)Ordered By: Poli Barfield on 12-31-2024 Immature granulocytes/100 WBC (Bld) 0.700 % 0.0-0.9 [facility] Ketones Test strip Ql (U)Ord ered By: Poli Barfield on 12-31-2024 Ketones Ql (U) 5 mg/dl High Negative [facility] MCV (mean corpuscular volume ) determinationOrdered By: Poli Barfield on 12-31-2024 MCV (RBC) [Entitic vol] 83.9 fL 81-99 [facility] Magnesiumon 12-31-2024 Magnesium [Mass/Vol] 1.5 mg/dL Normal 1.5-2.2 [facility] Comment on above: Performed By: #### L 501.5200, L501.9520 ####[facility] [address] [place], [address] Magnesium measurement (mass/ volume)Ordered By: Dewayne Duff on 12-31-2024 Magnesium (Unsp spec) [Mass/Vol] 1.5 mg/dL 1.5-2.2 [facility] Mean corpuscular hemoglobin (MCH) determinationOrdered By: Poli Barfield on 12-31-2024 MCH (RBC) [Entitic mass] 27.4 pg 27.0-32.0 [facility] Monocyte percentageOrdered B y: Poli Barfield on 12-31-2024 Monocytes/100 WBC (Bld) 6.4 % 0-10 [facility] Mucus LM Ql (Urine sed)Order ed By: Poli Barfield on 12-31-2024 Mucus Ql (Urine sed) 0 SEEN /hpf [facility] Neutrophil percentageOrdered By: Poli Barfield on 12-31-2024 Neutrophils/100 WBC (Bld) 64.4 % 47-70 [facility] Nitrite Test strip Ql (U)Ord ered By: Poli Barfield on 12-31-2024 Nitrite Ql (U) Negative Negative [facility] No Panel InformationOrdered By: Poli Barfield on 12-31-2024 ESTRELLA [facility] Not entered [facility] Room Air [facility] Platelet countOrdered By: Demetrio Barfield on 12-31-2024 Platelets (Bld) [#/Vol] 400 10*3/uL 150-450 [facility] Potassium measurement (mass/ volume)Ordered By: Poli Barfield on 12-31-2024 Potassium (Unsp spec) [Mass/Vol] 3.7 mmol/L 3.3-5.1 [facility] Potassium measurement (mass/ volume)Ordered By: David Bain on 12-31-2024 Potassium (Unsp spec) [Mass/Vol] 3.6 mmol/L 3.3-5.1 [facility] ,Urineon 12-31-2024 Beta HCG ( test) Ql (U) Negative Normal [facility] Comment on above: Result Comment: Very dilute urine specimens, as indicated by a low specificgravity, may not contain signs sales representative levels of hCG.If is still suspected, a first morning urinespecimen should be collected 48 hours later and tested. Performed By: #### L 400.7600 ####[facility] [address] [place], [place], [address] Protein Test strip Ql (U)Ord ered By: Poli Barfield on 12-31-2024 Protein Ql (U) 30 mg/dl High Negative [facility] RBC Auto (Bld) [#/Vol]Ordere d By: Poli Barfield on 12-31-2024 RBC (Bld) [#/Vol] 4.53 10*6/uL 4.2-5.4 [facility] Serum creatinine measurement (mass/volume)Ordered By: Poli Barfield on 12-31-2024 Creatinine [Mass/Vol] 0.85 mg/dL 0.70-1.20 [facility] Serum creatinine measurement (mass/volume)Ordered By: David Bain on 12-31-2024 Creatinine [Mass/Vol] 0.82 mg/dL 0.70-1.20 [facility] Serum glucose measurement (m ass/volume)Ordered By: Poli Barfield on 12-31-2024 Glucose [Mass/Vol] 177 mg/dL High 70- [facility] Serum glucose measurement (m ass/volume)Ordered By: David Bain on 12-31-2024 Glucose [Mass/Vol] 129 mg/dL High 70- [facility] Serum or plasma calcium hussein urement (mass/volume)Ordered By: Poli Barfield on 12-31-2024 Calcium [Mass/Vol] 8.2 mg/dL 7.6-11.0 [facility] Serum or plasma calcium hussein urement (mass/volume)Ordered By: David Bain on 12-31-2024 Calcium [Mass/Vol] 8.2 mg/dL 7.6-11.0 [facility] Serum or plasma urea nitroge n measurement (mass/volume)Ordered By: Poli Barfield on 12-31-2024 Urea nitrogen [Mass/Vol] 7 mg/dL 10-28 [facility] Serum or plasma urea nitroge n measurement (mass/volume)Ordered By: David Bain on 12-31-2024 Urea nitrogen [Mass/Vol] 8 mg/dL - [facility] Sodium levelOrdered By: Poli Barfield on 12-31-2024 Sodium [Moles/Vol] 139 mmol/L 133-145 [facility] Sodium levelOrdered By: Darnell Bain on 12-31-2024 Sodium [Moles/Vol] 138 mmol/L 133-145 [facility] Squamous epithelial cells de tection in urine sediment by light microscopyOrdered By: Poli Barfield on 12-31-2024 Epithelial cells.squamous LM Ql (Urine sed) 0-5 SEEN /hpf 5-10 [facility] TSH DL <= 0.005 mIU/L QnOrde red By: Dewayne Duff on 12-31-2024 TSH Qn 0.649 uIU/mL 0.300-4.200 [facility] Thyroid Stim Hormone (TSH)on 12-31-2024 TSH 0.649 uIU/mL Normal 0.300-4.200 [facility] Comment on above: Performed By: #### L 501.5200, L501.9520 ####[facility] [address] [place], [address] Urinalysis, Completeon 12-31 BACTERIA 3+ /hpf Normal None Seen [facility] Comment on above: Order Comment: CLEAN CATCH Performed By: #### L 400.0001 ####[facility] [address] [place], [address] EPI,SQUAMOUS 0-5 SEEN Normal 5-10 [facility] Comment on above: Order Comment: CLEAN CATCH Performed By: #### L 400.0001 ####[facility] [address] [place], [address] WBC 0-5 SEEN Normal 0-5 [facility] Comment on above: Order Comment: CLEAN CATCH Performed By: #### L 400.0001 ####[facility] [address] [place], [address] Mucus Ql (Urine sed) 0 SEEN Normal [facility] Comment on above: Order Comment: CLEAN CATCH Performed By: #### L 400.0001 ####[facility] [address] [place], [address] RBC 0 SEEN Normal 0-5 [facility] Comment on above: Order Comment: CLEAN CATCH Performed By: #### L 400.0001 ####[facility] [address] [place], [address] Urine clarityOrdered By: Devon Barfield on 12-31-2024 Clarity (U) Cloudy Clear [facility] Urine color determinationOrd ered By: Poli Barfield on 12-31-2024 Color (U) Yellow Yellow [facility] Urine glucose detectionOrder ed By: Poli Barfield on 12-31-2024 Glucose Ql (U) Normal mg/dl Normal [facility] Urine leukocyte esterase det ection by dipstickOrdered By: Poli Barfield on 12-31-2024 Leukocyte esterase Test strip Ql (U) 100 /ul High Negative [facility] Urine pHOrdered By: Poli Barfield on 12-31-2024 pH (U) 6.0 [pH] 5.0 - 8.0 [facility] Urine testOrdered By: Dewayne Duff on 12-31-2024 HCG ( test) Ql (U) Negative [facility] Urine sediment bacteria coun t by microscopy (number/high power field)Ordered By: Poli Barfield on 12-31-2024 Bacteria LM.HPF (Urine sed) [#/Area] 3 /[HPF] None Seen [facility] Urine specific gravity measu rementOrdered By: Poli Barfield on 12-31-2024 Specific gravity (U) [Rel density] 1.020 1.002-1.030 [facility] Urine urobilinogen measureme ntOrdered By: Poli Barfield on 12-31-2024 Urobilinogen Ql (U) Normal mg/dl Normal [facility] Venous Blood Gason 5 Blood Gas Type ESTRELLA Normal [facility] Comment on above: Performed By: #### L 9000.0810 ####[facility] [address] [facility] [address] CO2 [Moles/Vol] 25 mmol/L Normal 23-33 [facility] Comment on above: Performed By: #### L 9000.0810 ####[facility] [address] [place], [address] HCO3 (Bld) [Moles/Vol] 24 mmol/L Normal 22-26 [facility] Comment on above: Performed By: #### L 9000.0810 ####[facility] [address] [facility] [id number] O2 Delivery Dev Room Air Normal [facility] Comment on above: Performed By: #### L 9000.0810 ####[facility] [address] [place], [place], [id number] SITE Not entered Normal [facility] Comment on above: Performed By: #### L 9000.0810 ####[facility] [address] [place], [place], [address] VBG BE 0 mmol/L Normal -1.0-3.5 [facility] Comment on above: Performed By: #### L 9000.0810 ####[facility] [address] [place], [address] VBG pCO2 30.7 mmHg Low 41-51 [facility] Comment on above: Performed By: #### L 9000.0810 ####[facility] [address] [place], [place], [address] VBG pH 7.49 High 7.32-7.42 [facility] Comment on above: Performed By: #### L 9000.0810 ####[facility] [address] [place], [place], [address] VBG PO2 22 mmHg Low 25-40 [facility] Comment on above: Performed By: #### L 9000.0810 ####[facility] [address] [place], [address] VBG SO2 43 Low 50-70 [facility] Comment on above: Performed By: #### L 9000.0810 ####[facility] [address] [place], [place], [address] Venous blood base excess kedar surementOrdered By: Poli Barfield on 12-31-2024 Base excess Calc (BldV) [Moles/Vol] 0 mmol/L -1.0-3.5 [facility] Venous blood bicarbonate kedar surementOrdered By: Poli Barfield on 12-31-2024 HCO3 (Bld) [Moles/Vol] 24 mmol/L - [facility] Venous blood pH measurementO rdered By: Poli Barfield on 12-31-2024 pH (BldV) 7.49 [pH] High 7.32-7.42 [facility] Venous blood partial pressur e of carbon dioxide measurementOrdered By: Poli Barfield on 12-31-2024 CO2 (BldV) [Partial pressure] 30.7 mm[Hg] Low 41-51 [facility] Venous blood partial pressur e of oxygen measurementOrdered By: Poli Barfield on 12-31-2024 Oxygen (BldV) [Partial pressure] 22 mm[Hg] Low 25-40 [facility] White blood cell (WBC) count Ordered By: Poli Barfield on 12-31-2024 WBC (Bld) [#/Vol] 9.9 10*3/uL 4.4-11.0 [facility] White blood cell countOrdere d By: Poli Barfield on 12-31-2024 White blood cell count 0-5 SEEN /hpf 0-5 [facility] Absolute lymphocyte countOrd ered By: Poli Barfield on 12-30-2024 Lymphocytes Auto (Unsp spec) [#/Vol] 3.14 10*3/uL 0.83-4.51 [facility] Absolute neutrophil countOrd ered By: Poli Barfield on 12-30-2024 Neutrophils (Bld) [#/Vol] 9.4 10*3/uL High 2.0-7.7 [facility] Amphetamine detection with 1 000 ng/mL as cutoffOrdered By: Poli Barfield on 12-30-2024 Amphetamines Screen method >1000 ng/mL Ql (U) Negative < 200 ng/mL [facility] Anion gap in Serum or Plasma Ordered By: Poli Barfield on 12-30-2024 Anion gap [Moles/Vol] 20 mmol/L High 5-15 [facility] Automated lymphocyte count a s percentage of total leukocytesOrdered By: Poli Barfield on 12-30-2024 Lymphocytes/100 WBC Auto (Unsp spec) 23.6 % 19-41 [facility] BUN/creatinine ratioOrdered By: Poli Barfield on 12-30-2024 Urea nitrogen/Creatinine [Mass ratio] 11.1 mg/mg - [facility] Basic Metabolic Profile (BMP )on 12-30-2024 BUN/CRE 11.9 RATIO Normal - [facility] Comment on above: Order Comment: Call MD with results STAT Performed By: #### L 500.2500 ####[facility] [address] [place], [address] Calcium [Mass/Vol] 8.1 mg/dL Normal 7.6-11.0 [facility] Comment on above: Order Comment: Call MD with results STAT Performed By: #### L 500.2500 ####[facility] [address] [place], [address] Chloride [Moles/Vol] 106 mmol/L Normal 98-108 [facility] Comment on above: Order Comment: Call MD with results STAT Performed By: #### L 500.2500 ####[facility] [address] [place], [address] CO2 [Moles/Vol] 21.8 mmol/L Normal 21.0-32.0 [facility] Comment on above: Order Comment: Call MD with results STAT Performed By: #### L 500.2500 ####[facility] [address] [place], [address] Creatinine [Mass/Vol] 0.83 mg/dL Normal 0.70-1.20 [facility] Comment on above: Order Comment: Call MD with results STAT Performed By: #### L 500.2500 ####[facility] [address] [place], [address] ECRCL 120.96 ml/min Normal 50-250 [facility] Comment on above: Order Comment: Call MD with results STAT Performed By: #### L 500.2500 ####[facility] [address] [place], [address] GAP 13 Normal 5-15 [facility] Comment on above: Order Comment: Call MD with results STAT Performed By: #### L 500.2500 ####[facility] [address] [place], [address] GFR/1.73 sq M.predicted among non-blacks MDRD (S/P/Bld) [Vol rate/Area] 96 mL/min/{1.73_m2} Normal >60 [facility] Comment on above: Order Comment: Call MD with results STAT Result Comment: mL/m in/1.73m2 CKD-EPI Creatinine Equation (2020) Performed By: #### L 500.2500 ####[facility] [address] [place], [address] Glucose [Mass/Vol] 109 mg/dL High 70-99 [facility] Comment on above: Order Comment: Call MD with results STAT Performed By: #### L 500.2500 ####[facility] [address] [place], [address] Potassium [Moles/Vol] 3.4 mmol/L Normal 3.3-5.1 [facility] Comment on above: Order Comment: Call MD with results STAT Result Comment: Hemo lysis present, Results??could be affected.?? Performed By: #### L 500.2500 ####[facility] [address] [place], [address] Sodium [Moles/Vol] 141 mmol/L Normal 133-145 [facility] Comment on above: Order Comment: Call MD with results STAT Performed By: #### L 500.2500 ####[facility] [address] [place], [address] Urea nitrogen [Mass/Vol] 10 mg/dL Normal 4-19 [facility] Comment on above: Order Comment: Call MD with results STAT Performed By: #### L 500.2500 ####[facility] [address] [place], [address] BUN/CRE 11.9 RATIO Normal 10-20 [facility] Comment on above: Order Comment: Call MD with results STAT Performed By: #### L 500.2500 ####[facility] [address] [place], [address] Calcium [Mass/Vol] 8.1 mg/dL Normal 7.6-11.0 [facility] Comment on above: Order Comment: Call MD with results STAT Performed By: #### L 500.2500 ####[facility] [address] [place], [address] Chloride [Moles/Vol] 104 mmol/L Normal 98-108 [facility] Comment on above: Order Comment: Call MD with results STAT Performed By: #### L 500.2500 ####[facility] [address] [place], [address] CO2 [Moles/Vol] 24.0 mmol/L Normal 21.0-32.0 [facility] Comment on above: Order Comment: Call MD with results STAT Performed By: #### L 500.2500 ####[facility] [address] [place], [address] Creatinine [Mass/Vol] 0.94 mg/dL Normal 0.70-1.20 [facility] Comment on above: Order Comment: Call MD with results STAT Performed By: #### L 500.2500 ####[facility] [address] [place], [address] ECRCL 106.80 ml/min Normal 50-250 [facility] Comment on above: Order Comment: Call MD with results STAT Performed By: #### L 500.2500 ####[facility] [address] [place], [address] GAP 11 Normal 5-15 [facility] Comment on above: Order Comment: Call MD with results STAT Performed By: #### L 500.2500 ####[facility] [address] [place], [address] GFR/1.73 sq M.predicted among non-blacks MDRD (S/P/Bld) [Vol rate/Area] 83 mL/min/{1.73_m2} Normal >60 [facility] Comment on above: Order Comment: Call MD with results STAT Result Comment: mL/m in/1.73m2 CKD-EPI Creatinine Equation (2020) Performed By: #### L 500.2500 ####[facility] [address] [place], [address] Glucose [Mass/Vol] 185 mg/dL High 70-99 [facility] Comment on above: Order Comment: Call MD with results STAT Performed By: #### L 500.2500 ####[facility] [address] [place], [address] Potassium [Moles/Vol] 3.5 mmol/L Normal 3.3-5.1 [facility] Comment on above: Order Comment: Call MD with results STAT Performed By: #### L 500.2500 ####[facility] [address] [place], [address] Sodium [Moles/Vol] 139 mmol/L Normal 133-145 [facility] Comment on above: Order Comment: Call MD with results STAT Performed By: #### L 500.2500 ####[facility] [address] [place], [address] Urea nitrogen [Mass/Vol] 11 mg/dL Normal 4-19 [facility] Comment on above: Order Comment: Call MD with results STAT Performed By: #### L 500.2500 ####[facility] [address] [place], [address] BUN/CRE 12.1 RATIO Normal 10-20 [facility] Comment on above: Order Comment: Call MD with results STAT Performed By: #### L 500.2500 ####[facility] [address] [place], [address] Calcium [Mass/Vol] 8.6 mg/dL Normal 7.6-11.0 [facility] Comment on above: Order Comment: Call MD with results STAT Performed By: #### L 500.2500 ####[facility] [address] [place], [address] Chloride [Moles/Vol] 104 mmol/L Normal 98-108 [facility] Comment on above: Order Comment: Call MD with results STAT Performed By: #### L 500.2500 ####[facility] [address] [place], [address] CO2 [Moles/Vol] 24.0 mmol/L Normal 21.0-32.0 [facility] Comment on above: Order Comment: Call MD with results STAT Performed By: #### L 500.2500 ####[facility] [address] [place], [address] Creatinine [Mass/Vol] 1.03 mg/dL Normal 0.70-1.20 [facility] Comment on above: Order Comment: Call MD with results STAT Performed By: #### L 500.2500 ####[facility] [address] [place], [address] ECRCL 97.47 ml/min Normal 50-250 [facility] Comment on above: Order Comment: Call MD with results STAT Performed By: #### L 500.2500 ####[facility] [address] [place], [address] GAP 13 Normal 5-15 [facility] Comment on above: Order Comment: Call MD with results STAT Performed By: #### L 500.2500 ####[facility] [address] [place], [address] GFR/1.73 sq M.predicted among non-blacks MDRD (S/P/Bld) [Vol rate/Area] 74 mL/min/{1.73_m2} Normal >60 [facility] Comment on above: Order Comment: Call MD with results STAT Result Comment: mL/m in/1.73m2 CKD-EPI Creatinine Equation (2020) Performed By: #### L 500.2500 ####[facility] [address] [place], [address] Glucose [Mass/Vol] 133 mg/dL High 70-99 [facility] Comment on above: Order Comment: Call MD with results STAT Performed By: #### L 500.2500 ####[facility] [address] [place], [address] Potassium [Moles/Vol] 3.4 mmol/L Normal 3.3-5.1 [facility] Comment on above: Order Comment: Call MD with results STAT Performed By: #### L 500.2500 ####[facility] [address] [place], [address] Sodium [Moles/Vol] 141 mmol/L Normal 133-145 [facility] Comment on above: Order Comment: Call MD with results STAT Performed By: #### L 500.2500 ####[facility] [address] [place], [address] Urea nitrogen [Mass/Vol] 13 mg/dL Normal 4-19 [facility] Comment on above: Order Comment: Call MD with results STAT Performed By: #### L 500.2500 ####[facility] [address] [place], [address] BUN Normal 4-19 [facility] Comment on above: Result Comment: DUPL ICATE Performed By: #### L 500.2500 ####[facility] [address] [place], [address] Performed By: #### L 500.2500, L100.0100 ####[facility] [address] [place], [address] BUN/CRE Normal 10-20 [facility] Comment on above: Result Comment: DUPL ICATE Performed By: #### L 500.2500 ####[facility] [address] [place], [address] Performed By: #### L 500.2500, L100.0100 ####[facility] [address] [place], [address] Calcium Normal 7.6-11.0 [facility] Comment on above: Result Comment: DUPL ICATE Performed By: #### L 500.2500 ####[facility] [address] [place], [address] Performed By: #### L 500.2500, L100.0100 ####[facility] [address] [place], [address] CL Normal 98-108 [facility] Comment on above: Result Comment: DUPL ICATE Performed By: #### L 500.2500 ####[facility] [address] [place], [address] Performed By: #### L 500.2500, L100.0100 ####[facility] [address] [place], [address] CO2 Normal 21.0-32.0 [facility] Comment on above: Result Comment: DUPL ICATE Performed By: #### L 500.2500 ####[facility] [address] [place], [address] Performed By: #### L 500.2500, L100.0100 ####[facility] [address] [place], [address] CREAT,SERUM Normal 0.70-1.20 [facility] Comment on above: Result Comment: DUPL ICATE Performed By: #### L 500.2500 ####[facility] [address] [place], [address] Performed By: #### L 500.2500, L100.0100 ####[facility] [address] [place], [address] eGFR Normal >60 [facility] Comment on above: Result Comment: DUPL ICATE Performed By: #### L 500.2500 ####[facility] [address] [place], [address] Performed By: #### L 500.2500, L100.0100 ####[facility] [address] [place], [address] GAP Normal 5-15 [facility] Comment on above: Result Comment: DUPL ICATE Performed By: #### L 500.2500 ####[facility] [address] [place], [address] Performed By: #### L 500.2500, L100.0100 ####[facility] [address] [place], [address] GLU Normal 70-99 [facility] Comment on above: Result Comment: DUPL ICATE Performed By: #### L 500.2500 ####[facility] [address] [place], [address] Performed By: #### L 500.2500, L100.0100 ####[facility] [address] [place], [address] Potassium Normal 3.3-5.1 [facility] Comment on above: Result Comment: DUPL ICATE Performed By: #### L 500.2500 ####[facility] [address] [place], [address] Performed By: #### L 500.2500, L100.0100 ####[facility] [address] [place], [address] Basic Metabolic Profile (BMP) Normal 133-145 [facility] Comment on above: Result Comment: DUPL ICATE Performed By: #### L 500.2500 ####[facility] [address] [place], [address] Performed By: #### L 500.2500, L100.0100 ####[facility] [address] [place], [address] Basophil percentageOrdered B y: Poli Le on 12-30-2024 Basophils/100 WBC (Bld) 0.3 % 0-1 [facility] Bedside Glucoseon 12-30-2024 FINGERSTICK GLU 135 mg/dL High 74-106 [facility] Comment on above: Result Comment: BULL GEMENT OF PATIENT CARE PER NURSING PROTOCOL Performed By: #### L 501.080 ####[facility] [address] [place], [address] FINGERSTICK GLU 109 mg/dL High 74-106 [facility] Comment on above: Result Comment: BULL GEMENT OF PATIENT CARE PER NURSING PROTOCOL Performed By: #### L 501.080 ####[facility] [address] [place], [address] FINGERSTICK GLU 96 mg/dL Normal 74-106 [facility] Comment on above: Result Comment: BULL GEMENT OF PATIENT CARE PER NURSING PROTOCOL Performed By: #### L 501.080 ####[facility] [address] [place], [address] FINGERSTICK GLU 108 mg/dL High 74-106 [facility] Comment on above: Result Comment: BULL GEMENT OF PATIENT CARE PER NURSING PROTOCOL Performed By: #### L 501.080 ####[facility] [address] [place], [address] FINGERSTICK GLU 179 mg/dL High 74-106 [facility] Comment on above: Result Comment: BULL GEMENT OF PATIENT CARE PER NURSING PROTOCOL Performed By: #### L 501.080 ####[facility] [address] [place], [address] FINGERSTICK GLU 167 mg/dL High 74-106 [facility] Comment on above: Result Comment: BULL GEMENT OF PATIENT CARE PER NURSING PROTOCOL Performed By: #### L 501.080 ####[facility] [address] [place], [address] FINGERSTICK GLU 131 mg/dL High 74-106 [facility] Comment on above: Result Comment: BULL GEMENT OF PATIENT CARE PER NURSING PROTOCOL Performed By: #### L 501.080 ####[facility] [address] [place], [address] FINGERSTICK GLU 99 mg/dL Normal 74-106 [facility] Comment on above: Result Comment: BULL GEMENT OF PATIENT CARE PER NURSING PROTOCOL Performed By: #### L 501.080 ####[facility] [address] [place], [address] FINGERSTICK GLU 129 mg/dL High 74-106 [facility] Comment on above: Result Comment: BULL GEMENT OF PATIENT CARE PER NURSING PROTOCOL Performed By: #### L 501.080 ####[facility] [address] [place], [address] Beta-Hydroxbytyrateon 2024 BETA-HYDROXYBUT 0.6 mmol/L High 0.0-0.3 [facility] Comment on above: Performed By: #### L 501.6901 ####[facility] [address] [place], [address] BETA-HYDROXYBUT 0.3 mmol/L Normal 0.0-0.3 [facility] Comment on above: Performed By: #### L 501.6901 ####[facility] [address] [place], [address] Bilirubin Test strip Ql (U)O rdered By: Poli Barfield on 12-30-2024 Bilirubin Ql (U) 3 mg/dL High Negative [facility] Comment on above: COLOR OF URINE MAY A FFECT DIPSTICK RESULTS. Bilirubin, totalOrdered By: Poli Barfield on 12-30-2024 Bilirubin [Mass/Vol] 0.65 mg/dL 0.00-1.30 [facility] CBC W/Diff, Automatedon 06- Absolute Neut Normal 2.0-7.7 [facility] Comment on above: Result Comment: DUPL ICATE Performed By: #### L 500.2500, L100.0100 ####[facility] [address] [place], [address] HCT Normal 37-47 [facility] Comment on above: Result Comment: DUPL ICATE Performed By: #### L 500.2500, L100.0100 ####[facility] [address] [place], [address] HGB Normal 12.0-15.0 [facility] Comment on above: Result Comment: DUPL ICATE Performed By: #### L 500.2500, L100.0100 ####[facility] [address] [place], [address] MCH Normal 27.0-32.0 [facility] Comment on above: Result Comment: DUPL ICATE Performed By: #### L 500.2500, L100.0100 ####[facility] [address] [place], [address] MCHC Normal 32-36 [facility] Comment on above: Result Comment: DUPL ICATE Performed By: #### L 500.2500, L100.0100 ####[facility] [address] [place], [address] MCV Normal 81-99 [facility] Comment on above: Result Comment: DUPL ICATE Performed By: #### L 500.2500, L100.0100 ####[facility] [address] [place], [address] NEUT% Normal 47-70 [facility] Comment on above: Result Comment: DUPL ICATE Performed By: #### L 500.2500, L100.0100 ####[facility] [address] [place], [address] PLT Normal 150-450 [facility] Comment on above: Result Comment: DUPL ICATE Performed By: #### L 500.2500, L100.0100 ####[facility] [address] [place], [address] RBC Normal 4.2-5.4 [facility] Comment on above: Result Comment: DUPL ICATE Performed By: #### L 500.2500, L100.0100 ####[facility] [address] [place], [address] RDW CV Normal 11.6-14.6 [facility] Comment on above: Result Comment: DUPL ICATE Performed By: #### L 500.2500, L100.0100 ####[facility] [address] [place], [address] RDW SD Normal 35.1-43.9 [facility] Comment on above: Result Comment: DUPL ICATE Performed By: #### L 500.2500, L100.0100 ####[facility] [address] [place], [address] WBC Normal 4.4-11.0 [facility] Comment on above: Result Comment: DUPL ICATE Performed By: #### L 500.2500, L100.0100 ####[facility] [address] [place], [address] Absolute Lymph 3.14 X10 3/uL Normal 0.83-4.51 [facility] Comment on above: Performed By: #### L 100.0100, L500.4050, L501.2450, L505.5000, L700.6800 ####[place] [facility] [address] [place], [address] Absolute Neut 9.4 X10 3/uL High 2.0-7.7 [facility] Comment on above: Performed By: #### L 100.0100, L500.4050, L501.2450, L505.5000, L700.6800 ####[facility] [address] [place], [address] Basophils/100 WBC (Bld) 0.3 % Normal 0-1 [facility] Comment on above: Performed By: #### L 100.0100, L500.4050, L501.2450, L505.5000, L700.6800 ####[facility] [address] [place], [address] Eosinophils/100 WBC (Bld) 0.0 % Normal 0-5 [facility] Comment on above: Performed By: #### L 100.0100, L500.4050, L501.2450, L505.5000, L700.6800 ####[facility] [address] [place], [address] Erythrocyte distribution width (RBC) [Ratio] 14.3 % Normal 11.6-14.6 [facility] Comment on above: Performed By: #### L 100.0100, L500.4050, L501.2450, L505.5000, L700.6800 ####[facility] [address] [place], [address] Hematocrit (Bld) [Volume fraction] 39.2 % Normal 37-47 [facility] Comment on above: Performed By: #### L 100.0100, L500.4050, L501.2450, L505.5000, L700.6800 ####[facility] [address] [place], [address] Hemoglobin (Bld) [Mass/Vol] 13.2 g/dL Normal 12.0-15.0 [facility] Comment on above: Performed By: #### L 100.0100, L500.4050, L501.2450, L505.5000, L700.6800 ####[facility] [address] [place], [address] IG% 0.600 Normal 0.0-0.9 [facility] Comment on above: Result Comment: IG% - Immature Granulocytes (promyelocytes, myelocytes andmetamyelocytes) > 1% indicates that a LEFT SHIFT is Present. Performed By: #### L 100.0100, L500.4050, L501.2450, L505.5000, L700.6800 ####[facility] [address] [place], [address] Lymphocytes/100 WBC (Bld) 23.6 % Normal 19-41 [facility] Comment on above: Performed By: #### L 100.0100, L500.4050, L501.2450, L505.5000, L700.6800 ####[facility] [address] [place], [address] MCH (RBC) [Entitic mass] 27.6 pg Normal 27.0-32.0 [facility] Comment on above: Performed By: #### L 100.0100, L500.4050, L501.2450, L505.5000, L700.6800 ####[facility] [address] [place], [address] MCHC (RBC) [Mass/Vol] 33.7 g/dL Normal 32-36 [facility] Comment on above: Performed By: #### L 100.0100, L500.4050, L501.2450, L505.5000, L700.6800 ####[facility] [address] [place], [address] MCV (RBC) [Entitic vol] 81.8 fL Normal 81-99 [facility] Comment on above: Performed By: #### L 100.0100, L500.4050, L501.2450, L505.5000, L700.6800 ####[facility] [address] [place], [address] Monocytes/100 WBC (Bld) 4.8 % Normal 0-10 [facility] Comment on above: Performed By: #### L 100.0100, L500.4050, L501.2450, L505.5000, L700.6800 ####[facility] [address] [place], [address] Neutrophils/100 WBC (Bld) 70.7 % High 47-70 [facility] Comment on above: Performed By: #### L 100.0100, L500.4050, L501.2450, L505.5000, L700.6800 ####[facility] [address] [place], [address] Nucleated RBC (Bld) [#/Vol] 0 10*3/uL Normal 0-5 [facility] Comment on above: Performed By: #### L 100.0100, L500.4050, L501.2450, L505.5000, L700.6800 ####[facility] [address] [place], [address] Platelet mean volume (Bld) [Entitic vol] 9.7 fL Normal 6.2-12.0 [facility] Comment on above: Performed By: #### L 100.0100, L500.4050, L501.2450, L505.5000, L700.6800 ####[facility] [address] [place], [address] Platelets (Bld) [#/Vol] 430 10*3/uL Normal 150-450 [facility] Comment on above: Performed By: #### L 100.0100, L500.4050, L501.2450, L505.5000, L700.6800 ####[facility] [address] [place], [address] RBC (Bld) [#/Vol] 4.79 10*6/uL Normal 4.2-5.4 [facility] Comment on above: Performed By: #### L 100.0100, L500.4050, L501.2450, L505.5000, L700.6800 ####[facility] [address] [place], [address] RDW SD 41.4 fl Normal 35.1-43.9 [facility] Comment on above: Performed By: #### L 100.0100, L500.4050, L501.2450, L505.5000, L700.6800 ####[facility] [address] [place], [address] WBC (Bld) [#/Vol] 13.3 10*3/uL High 4.4-11.0 [facility] Comment on above: Performed By: #### L 100.0100, L500.4050, L501.2450, L505.5000, L700.6800 ####[facility] [address] [place], [address] CO2 (BldV) [Moles/Vol]Ordere d By: David Bain on 12-30-2024 CO2 [Moles/Vol] 30 mmol/L 23-33 [facility] Carbon dioxide, total [Moles /volume] in Central venous bloodOrdered By: Poli Barfield on 12-30-2024 CO2 [Moles/Vol] 19.2 mmol/L Low 21.0-32.0 [facility] Chloride assayOrdered By: Demetrio Barfield on 12-30-2024 Chloride [Moles/Vol] 97 mmol/L Low 98-108 [facility] Comprehensive Metabolic Prof ilon 12-30-2024 Albumin [Mass/Vol] 4.2 g/dL Normal 3.5-5.0 [facility] Comment on above: Performed By: #### L 100.0100, L500.4050, L501.2450, L505.5000, L700.6800 ####[facility] [address] [place], [address] Albumin/Globulin [Mass ratio] 0.9 {ratio} Normal 0.9-2.4 [facility] Comment on above: Performed By: #### L 100.0100, L500.4050, L501.2450, L505.5000, L700.6800 ####[facility] [address] [place], [address] ALK PHOS 91 U/L Normal 35-104 [facility] Comment on above: Performed By: #### L 100.0100, L500.4050, L501.2450, L505.5000, L700.6800 ####[facility] [address] [place], [address] ALT [Catalytic activity/Vol] 12 U/L Normal <=34 [facility] Comment on above: Performed By: #### L 100.0100, L500.4050, L501.2450, L505.5000, L700.6800 ####[facility] [address] [place], [address] AST [Catalytic activity/Vol] 16 U/L Normal <=31 [facility] Comment on above: Performed By: #### L 100.0100, L500.4050, L501.2450, L505.5000, L700.6800 ####[facility] [address] [place], [address] Bilirubin [Mass/Vol] 0.65 mg/dL Normal 0.00-1.30 [facility] Comment on above: Performed By: #### L 100.0100, L500.4050, L501.2450, L505.5000, L700.6800 ####[facility] [address] [place], [address] BUN/CRE 11.1 RATIO Normal 10-20 [facility] Comment on above: Performed By: #### L 100.0100, L500.4050, L501.2450, L505.5000, L700.6800 ####[facility] [address] [place], [address] Calcium [Mass/Vol] 9.7 mg/dL Normal 7.6-11.0 [facility] Comment on above: Performed By: #### L 100.0100, L500.4050, L501.2450, L505.5000, L700.6800 ####[facility] [address] [place], [address] Chloride [Moles/Vol] 97 mmol/L Low 98-108 [facility] Comment on above: Performed By: #### L 100.0100, L500.4050, L501.2450, L505.5000, L700.6800 ####[facility] [address] [place], [address] CO2 [Moles/Vol] 19.2 mmol/L Low 21.0-32.0 [facility] Comment on above: Performed By: #### L 100.0100, L500.4050, L501.2450, L505.5000, L700.6800 ####[facility] [address] [place], [address] Creatinine [Mass/Vol] 1.22 mg/dL High 0.70-1.20 [facility] Comment on above: Performed By: #### L 100.0100, L500.4050, L501.2450, L505.5000, L700.6800 ####[facility] [address] [place], [address] ECRCL 81.50 ml/min Normal 50-250 [facility] Comment on above: Performed By: #### L 100.0100, L500.4050, L501.2450, L505.5000, L700.6800 ####[facility] [address] [place], [address] GAP 20 High 5-15 [facility] Comment on above: Performed By: #### L 100.0100, L500.4050, L501.2450, L505.5000, L700.6800 ####[facility] [address] [place], [address] GFR/1.73 sq M.predicted among non-blacks MDRD (S/P/Bld) [Vol rate/Area] 60 mL/min/{1.73_m2} Normal >60 [facility] Comment on above: Result Comment: mL/m in/1.73m2 CKD-EPI Creatinine Equation (2020) Performed By: #### L 100.0100, L500.4050, L501.2450, L505.5000, L700.6800 ####[facility] [address] [place], [address] Globulin (S) [Mass/Vol] 4.4 g/dL High 2.2-4.2 [facility] Comment on above: Performed By: #### L 100.0100, L500.4050, L501.2450, L505.5000, L700.6800 ####[facility] [address] [place], [address] Glucose [Mass/Vol] 359 mg/dL High 70-99 [facility] Comment on above: Performed By: #### L 100.0100, L500.4050, L501.2450, L505.5000, L700.6800 ####[facility] [address] [place], [address] Potassium [Moles/Vol] 3.4 mmol/L Normal 3.3-5.1 [facility] Comment on above: Performed By: #### L 100.0100, L500.4050, L501.2450, L505.5000, L700.6800 ####[facility] [address] [place], [address] Sodium [Moles/Vol] 137 mmol/L Normal 133-145 [facility] Comment on above: Performed By: #### L 100.0100, L500.4050, L501.2450, L505.5000, L700.6800 ####[facility] [address] [place], [address] T PROT 8.6 g/dL High 5.9-8.4 [facility] Comment on above: Performed By: #### L 100.0100, L500.4050, L501.2450, L505.5000, L700.6800 ####[facility] [address] [place], [address] Urea nitrogen [Mass/Vol] 14 mg/dL Normal 4-19 [facility] Comment on above: Performed By: #### L 100.0100, L500.4050, L501.2450, L505.5000, L700.6800 ####[facility] [address] [place], [address] Emergency Department Summary on 12-30-2024 Emergency Department Summary Normal [facility] Eosinophil percentageOrdered By: Poli Barfield on 12-30-2024 Eosinophils/100 WBC (Bld) 0.0 % 0-5 [facility] Erythrocyte distribution wid th ratioOrdered By: Poli Barfield on 12-30-2024 Erythrocyte distribution width (RBC) [Ratio] 14.3 % 11.6-14.6 [facility] Erythrocyte distribution wid th standard deviationOrdered By: Poli Barfield on 12-30-2024 Erythrocyte distribution width (RBC) [Ratio] 41.4 fl 35.1-43.9 [facility] Glomerular filtration rate ( GFR) estimation/1.73 sq m using serum, plasma, or whole bOrdered By: Poli Barfield on 12-30-2024 GFR/1.73 sq M.predicted among non-blacks MDRD (S/P/Bld) [Vol rate/Area] 60 mL/min/{1.73_m2} >60 [facility] Comment on above: mL/min/1.73m2 CKD-EP I Creatinine Equation (2020) H AND P Exam - Hospital[facility] 12-30-2024 H&P Exam - Hospitalist Normal [facility] Hematocrit Auto (Bld) [Volum e fraction]Ordered By: Poli Barfield on 12-30-2024 Hematocrit (Bld) [Volume fraction] 39.2 % 37-47 [facility] Hemoglobin measurementOrdere d By: Poli Barfield on 12-30-2024 Hemoglobin (Bld) [Mass/Vol] 13.2 g/dL 12.0-15.0 [facility] Immature granulocytes/100 WB C Auto (Bld)Ordered By: Poli Barfield on 12-30-2024 Immature granulocytes/100 WBC (Bld) 0.600 % 0.0-0.9 [facility] Comment on above: IG% - Immature Granu locytes (promyelocytes, myelocytes and metamyelocytes) > 1% indicates that a LEFT SHIFT is Present. Ketones Test strip Ql (U)Ord ered By: Poli Barfield on 12-30-2024 Ketones Ql (U) 50 mg/dl High Negative [facility] Laboratory - Chemistry and C hemistry - challengeOrdered By: Poli Barfield on 12-30-2024 AST [Catalytic activity/Vol] 16 U/L <32 [facility] Lipaseon 12-30-2024 Lipase [Catalytic activity/Vol] 25 U/L Normal 13-75 [facility] Comment on above: Result Comment: Adam faulkner note:LIPASE revised reference range effective 22.New Lipase methodology. Expected to produce lower valuesthan the previous assay method.NEW Reference Range: 13 - 75 U/L Performed By: #### L 100.0100, L500.4050, L501.2450, L505.5000, L700.6800 ####[facility] [address] [place], [address] Lipase measurementOrdered By : Poli Barfield on 12-30-2024 Lipase [Catalytic activity/Vol] 25 U/L 13-75 [facility] Comment on above: Please note:LIPASE r evised reference range effective 22. New Lipase methodology. Expected to produce lower values than the previous assay method. NEW Reference Range: 13 - 75 U/L MCV (mean corpuscular volume ) determinationOrdered By: Poli Barfield on 12-30-2024 MCV (RBC) [Entitic vol] 81.8 fL 81-99 [facility] Magnesiumon 12-30-2024 Magnesium [Mass/Vol] 1.8 mg/dL Normal 1.5-2.2 [facility] Comment on above: Performed By: #### L 501.7300, L501.2300, L501.5200 ####[facility] [address] [place], [address] Magnesium measurement (mass/ volume)Ordered By: David Bain on 12-30-2024 Magnesium (Unsp spec) [Mass/Vol] 1.8 mg/dL 1.5-2.2 [facility] Mean corpuscular hemoglobin (MCH) determinationOrdered By: Poli Barfield on 12-30-2024 MCH (RBC) [Entitic mass] 27.6 pg 27.0-32.0 [facility] Mean corpuscular hemoglobin concentration (MCHC) determinationOrdered By: Poli Barfield on 12-30-2024 MCHC (RBC) [Mass/Vol] 33.7 g/dL 32-36 [facility] Mean platelet volume determi nationOrdered By: Poli Barfield on 12-30-2024 Platelet mean volume (Bld) [Entitic vol] 9.7 fL 6.2-12.0 [facility] Microscopic analysis of urin e for red blood cells (RBC)Ordered By: Poli Barfield on 12-30-2024 Microscopic analysis of urine for red blood cells (RBC) 0 SEEN /hpf 0-5 [facility] Monocyte percentageOrdered B y: Poli Barfield on 12-30-2024 Monocytes/100 WBC (Bld) 4.8 % 0-10 [facility] Mucus LM Ql (Urine sed)Order ed By: Poli Barfield on 12-30-2024 Mucus Ql (Urine sed) 0 SEEN /hpf [facility] Neutrophil percentageOrdered By: Poli Barfield on 12-30-2024 Neutrophils/100 WBC (Bld) 70.7 % High 47-70 [facility] Nitrite Test strip Ql (U)Ord ered By: Poli Barfield on 12-30-2024 Nitrite Ql (U) Negative Negative [facility] No Panel InformationOrdered By: David Bain on 12-30-2024 Blood Gas Sample Site Not entered [facility] Blood Gas Specimen Type ESTRELLA [facility] Oxygen Delivery Device Room Air [facility] ESTRELLA [facility] Not entered [facility] Room Air [facility] No Panel InformationOrdered By: Poli Barfield on 12-30-2024 Urine Buprenorphine Qualitative Negative < 200 ng/mL [facility] Urine Oxycodone Screen Negative < 100 ng/mL [facility] Negative < 200 ng/mL [facility] 16 U/L <32 [facility] Nucleated red blood cell per centageOrdered By: Poli Barfield on 12-30-2024 Nucleated RBC/100 WBC (Bld) [Ratio] 0 % 0-5 [facility] Osmolality, Serumon 12-31-19 25 OSMOLALITY,SER 302 mOsm/KG High 275-295 [facility] Comment on above: Order Comment: Comme nts: Add to ER Lab draw Performed By: #### L 501.7300, L501.2300, L501.5200 ####[facility] [address] [place], [place], [address] Phosphoruson 12-30-2024 Phosphate [Mass/Vol] 1.5 mg/dL Low 2.7-4.5 [facility] Comment on above: Performed By: #### L 501.7300, L501.2300, L501.5200 ####[facility] [address] [place], [place], [address] Platelet countOrdered By: Demetrio Barfield on 12-30-2024 Platelets (Bld) [#/Vol] 430 10*3/uL 150-450 [facility] Potassium measurement (mass/ volume)Ordered By: Poli Barfield on 12-30-2024 Potassium (Unsp spec) [Mass/Vol] 3.4 mmol/L 3.3-5.1 [facility] ,Serum,hCG Quali.on 12-30-2024 HCG, SERUM QUAL Negative Normal [facility] Comment on above: Performed By: #### L 100.0100, L500.4050, L501.2450, L505.5000, L700.6800 ####[facility] [address] [place], [address] Protein Test strip Ql (U)Ord ered By: Ploi Barfield on 12-30-2024 Protein Ql (U) 30 mg/dl High Negative [facility] Quantitative urine opiates m easurementOrdered By: Poli Barfield on 12-30-2024 Opiates Ql (U) Negative < 300 ng/mL [facility] RBC Auto (Bld) [#/Vol]Ordere d By: Poli Barfield on 12-30-2024 RBC (Bld) [#/Vol] 4.79 10*6/uL 4.2-5.4 [facility] Screening urine fentanyl kedar surementOrdered By: Poli Barfield on 12-30-2024 fentaNYL Screen Ql (U) Negative [facility] Serum beta-hCG test, qualita tiveOrdered By: Poli Barfield on 12-30-2024 Beta HCG ( test) Ql Negative [facility] Serum creatinine measurement (mass/volume)Ordered By: Poli Barfield on 12-30-2024 Creatinine [Mass/Vol] 1.22 mg/dL High 0.70-1.20 [facility] Serum globulin measurementOr dered By: Poli Barfield on 12-30-2024 Globulin (S) [Mass/Vol] 4.4 g/dL High 2.2-4.2 [facility] Serum glucose measurement (m ass/volume)Ordered By: Poli Barfield on 12-30-2024 Glucose [Mass/Vol] 359 mg/dL High 70-99 [facility] Serum or plasma alanine jordan otransferase (ALT) measurementOrdered By: Ploi Barfield on 12-30-2024 ALT [Catalytic activity/Vol] 12 U/L <35 [facility] Serum or plasma albumin hussein urement (mass/volume)Ordered By: Poli Barfield on 12-30-2024 Albumin [Mass/Vol] 4.2 g/dL 3.5-5.0 [facility] Serum or plasma albumin/glob ulin mass ratioOrdered By: Poli Barfield on 12-30-2024 Albumin/Globulin [Mass ratio] 0.9 {ratio} 0.9-2.4 [facility] Serum or plasma alkaline bradley sphatase measurementOrdered By: Poli Barfield on 12-30-2024 ALP [Catalytic activity/Vol] 91 U/L 35-104 [facility] Serum or plasma calcium hussein urement (mass/volume)Ordered By: Poli Barfield on 12-30-2024 Calcium [Mass/Vol] 9.7 mg/dL 7.6-11.0 [facility] Serum or plasma urea nitroge n measurement (mass/volume)Ordered By: Poli Barfield on 12-30-2024 Urea nitrogen [Mass/Vol] 14 mg/dL 4-19 [facility] Sodium levelOrdered By: Poli Barfield on 12-30-2024 Sodium [Moles/Vol] 137 mmol/L 133-145 [facility] Squamous epithelial cells de tection in urine sediment by light microscopyOrdered By: Poli Barfield on 12-30-2024 Epithelial cells.squamous LM Ql (Urine sed) 10-25 SEEN /hpf 5-10 [facility] Total proteinOrdered By: Devon Barfield on 12-30-2024 Protein [Mass/Vol] 8.6 g/dL High 5.9-8.4 [facility] Urinalysis, Completeon 12-30 EPI,SQUAMOUS 10-25 SEEN Normal 5-10 [facility] Comment on above: Order Comment: CLEAN CATCH Performed By: #### L 400.0001 ####[facility] [address] [place], [place], [id number] WBC 5-10 SEEN Normal 0-5 [facility] Comment on above: Order Comment: CLEAN CATCH Performed By: #### L 400.0001 ####[facility] [address] [place], [address] BACTERIA 0 SEEN Normal None Seen [facility] Comment on above: Order Comment: CLEAN CATCH Performed By: #### L 400.0001 ####[facility] [address] [place], [address] Mucus Ql (Urine sed) 0 SEEN Normal [facility] Comment on above: Order Comment: CLEAN CATCH Performed By: #### L 400.0001 ####[facility] [address] [place], [address] RBC 0 SEEN Normal 0-5 [facility] Comment on above: Order Comment: CLEAN CATCH Performed By: #### L 400.0001 ####[facility] [address] [place], [address] Urine Drug Screen (VISTA)on 12-30-2024 AMPHETAMINES Negative Normal <1000 ng/mL [facility] Comment on above: Performed By: #### L 100.0100, L500.4050, L501.2450, L505.5000, L700.6800 ####[facility] [address] [place], [address] BARBITIURATES Negative Normal < 200 ng/mL [facility] Comment on above: Performed By: #### L 100.0100, L500.4050, L501.2450, L505.5000, L700.6800 ####[facility] [address] [place], [address] BENZODIAZIPINE Negative Normal < 200 ng/mL [facility] Comment on above: Performed By: #### L 100.0100, L500.4050, L501.2450, L505.5000, L700.6800 ####[facility] [address] [place], [address] BUP Ur Drug Scr Negative Normal < 200 ng/mL [facility] Comment on above: Performed By: #### L 100.0100, L500.4050, L501.2450, L505.5000, L700.6800 ####[facility] [address] [place], [place], [phone] COCAINE Negative Normal < 300 ng/mL [facility] Comment on above: Performed By: #### L 100.0100, L500.4050, L501.2450, L505.5000, L700.6800 ####[facility] [address] [place], [place], [phone] Fentanyl Negative Normal [facility] Comment on above: Performed By: #### L 100.0100, L500.4050, L501.2450, L505.5000, L700.6800 ####[facility] [address] [place], [place], [phone] METHADONE Negative Normal < 300 ng/mL [facility] Comment on above: Performed By: #### L 100.0100, L500.4050, L501.2450, L505.5000, L700.6800 ####[facility] [address] [place], [place], [phone] OPIATES Negative Normal < 300 ng/mL [facility] Comment on above: Performed By: #### L 100.0100, L500.4050, L501.2450, L505.5000, L700.6800 ####[facility] [address] [place], [phone] OXYCODONE Negative Normal < 100 ng/mL [facility] Comment on above: Performed By: #### L 100.0100, L500.4050, L501.2450, L505.5000, L700.6800 ####[facility] [address] [place], [address] PCP Negative Normal < 25 ng/mL [facility] Comment on above: Performed By: #### L 100.0100, L500.4050, L501.2450, L505.5000, L700.6800 ####[facility] [address] [place], [address] THC Positive Normal < 50 ng/mL [facility] Comment on above: Result Comment: If c onfirmation testing is needed, a separate order will berequired to send out testing to the reference laboratory. Performed By: #### L 100.0100, L500.4050, L501.2450, L505.5000, L700.6800 ####[facility] [address] [place], [address] Urine benzodiazepine levelOr dered By: Poli Barfield on 12-30-2024 Benzodiazepines Ql (U) Negative < 200 ng/mL [facility] [facility] Urine clarityOrdered By: Devon Barfield on 12-30-2024 Clarity (U) Sl. Cloudy Clear [facility] Urine cocaine levelOrdered B y: Poli Barfield on 12-30-2024 Cocaine Ql (U) Negative < 300 ng/mL [facility] Urine color determinationOrd ered By: Poli Barfield on 12-30-2024 Color (U) Yellow Yellow [facility] Urine cultureOrdered By: Devon Barfield on 12-30-2024 Bacteria identified Cx Nom (U) Positive Abnormal [facility] Urine jolfi-2-kyjvsncwrlrmxt abinol (THC) measurementOrdered By: Poli Barfield on 12-30-2024 Cannabinoids Screen Ql (U) Positive < 50 ng/mL [facility] Comment on above: If confirmation test ing is needed, a separate order will be required to send out testing to the reference laboratory. Urine glucose detectionOrder ed By: Poli Barfield on 12-30-2024 Glucose Ql (U) 1000 mg/dl High Normal [facility] Urine leukocyte esterase det ection by dipstickOrdered By: Poli Barfield on 12-30-2024 Leukocyte esterase Test strip Ql (U) 500 /ul High Negative [facility] Urine pHOrdered By: Poli Barfield on 12-30-2024 pH (U) 5.0 [pH] 5.0 - 8.0 [facility] Urine phencyclidine (PCP) de tectionOrdered By: Poli Barfield on 12-30-2024 Phencyclidine Ql (U) Negative < 25 ng/mL [facility] Urine sediment bacteria coun t by microscopy (number/high power field)Ordered By: Poli Barfield on 12-30-2024 Bacteria LM.HPF (Urine sed) [#/Area] 0 /[HPF] None Seen [facility] Urine specific gravity measu rementOrdered By: Poli Barfield on 12-30-2024 Specific gravity (U) [Rel density] 1.025 1.002-1.030 [facility] Urine urobilinogen measureme ntOrdered By: Poli Barfield on 12-30-2024 Urobilinogen Ql (U) 1 mg/dl High Normal [facility] Venous Blood Gason 5 Blood Gas Type ESTRELLA Normal [facility] Comment on above: Performed By: #### L 9000.0810 ####[facility] [address] [facility] [id number] CO2 [Moles/Vol] 30 mmol/L Normal 23-33 [facility] Comment on above: Performed By: #### L 9000.0810 ####[facility] [address] [place], [address] HCO3 (Bld) [Moles/Vol] 29 mmol/L High 22-26 [facility] Comment on above: Performed By: #### L 9000.0810 ####[facility] [address] [place], [address] O2 Delivery Dev Room [facility] Comment on above: Performed By: #### L 9000.0810 ####[facility] [address] [place], [address] SITE Not entered Normal [facility] Comment on above: Performed By: #### L 9000.0810 ####[facility] [address] [place], [address] VBG BE 5 mmol/L High -1.0-3.5 [facility] Comment on above: Performed By: #### L 9000.0810 ####[facility] [address] [place], [address] VBG pCO2 42.2 mmHg Normal 41-51 [facility] Comment on above: Performed By: #### L 9000.0810 ####[facility] [address] [place], [address] VBG pH 7.45 High 7.32-7.42 [facility] Comment on above: Performed By: #### L 9000.0810 ####[facility] [address] [place], [address] VBG PO2 34 mmHg Normal 25-40 [facility] Comment on above: Performed By: #### L 9000.0810 ####[facility] [address] [place], [address] VBG SO2 68 Normal 50-70 [facility] Comment on above: Performed By: #### L 9000.0810 ####[facility] [address] [place], [address] Venous blood base excess kedar surementOrdered By: David Bain on 12-30-2024 Base excess Calc (BldV) [Moles/Vol] 5 mmol/L High -1.0-3.5 [facility] Venous blood bicarbonate kedar surementOrdered By: David Bain on 12-30-2024 HCO3 (Bld) [Moles/Vol] 29 mmol/L High 22-26 [facility] Venous blood oxygen saturati on measurementOrdered By: David Bain on 12-30-2024 Oxygen saturation in Blood 68 % 50-70 [facility] Venous blood pH measurementO rdered By: David Bain on 12-30-2024 pH (BldV) 7.45 [pH] High 7.32-7.42 [facility] Venous blood partial pressur e of carbon dioxide measurementOrdered By: David Bain on 12-30-2024 CO2 (BldV) [Partial pressure] 42.2 mm[Hg] 41-51 [facility] Venous blood partial pressur e of oxygen measurementOrdered By: David Bain on 12-30-2024 Oxygen (BldV) [Partial pressure] 34 mm[Hg] 25-40 [facility] White blood cell (WBC) count Ordered By: Poli Barfield on 12-30-2024 WBC (Bld) [#/Vol] 13.3 10*3/uL High 4.4-11.0 [facility] White blood cell countOrdere d By: Poli Barfield on 12-30-2024 White blood cell count 5-10 SEEN /hpf 0-5 [facility] Abdomen Limitedon 12-25-2024 Abdomen Limited Normal [facility] Absolute lymphocyte countOrd ered By: Nayana Peter on 12-13-2024 Lymphocytes Auto (Unsp spec) [#/Vol] 3.52 10*3/uL 0.83-4.51 [facility] Absolute neutrophil countOrd ered By: Nayana Peter on 12-13-2024 Neutrophils (Bld) [#/Vol] 5.0 10*3/uL 2.0-7.7 [facility] Anion gap in Serum or Plasma Ordered By: Nayana Peter on 12-13-2024 Anion gap [Moles/Vol] 13 mmol/L 5-15 [facility] Automated lymphocyte count a s percentage of total leukocytesOrdered By: Nayana Peter on 12-13-2024 Lymphocytes/100 WBC Auto (Unsp spec) 36.7 % 19-41 [facility] BUN/creatinine ratioOrdered By: Nayana Peter on 12-13-2024 Urea nitrogen/Creatinine [Mass ratio] 6.2 mg/mg Low 10-20 [facility] Basophil percentageOrdered B y: Nayana Peter on 12-13-2024 Basophils/100 WBC (Bld) 0.8 % 0-1 [facility] Bilirubin, totalOrdered By: Nayana Peter on 12-13-2024 Bilirubin [Mass/Vol] 0.30 mg/dL 0.00-1.30 [facility] CBC W/Diff, Automatedon Absolute Lymph 3.52 X10 3/uL Normal 0.83-4.51 [facility] Comment on above: Performed By: #### L 100.0100, L500.4050 ####[facility] [address] [place], [address] Absolute Neut 5.0 X10 3/uL Normal 2.0-7.7 [facility] Comment on above: Performed By: #### L 100.0100, L500.4050 ####[facility] [address] [place], [address] Basophils/100 WBC (Bld) 0.8 % Normal 0-1 [facility] Comment on above: Performed By: #### L 100.0100, L500.4050 ####[facility] [address] [place], [address] Eosinophils/100 WBC (Bld) 2.0 % Normal 0-5 [facility] Comment on above: Performed By: #### L 100.0100, L500.4050 ####[facility] [address] [place], [address] Erythrocyte distribution width (RBC) [Ratio] 14.0 % Normal 11.6-14.6 [facility] Comment on above: Performed By: #### L 100.0100, L500.4050 ####[facility] [address] [place], [address] Hematocrit (Bld) [Volume fraction] 40.5 % Normal 37-47 [facility] Comment on above: Performed By: #### L 100.0100, L500.4050 ####[facility] [address] [place], [address] Hemoglobin (Bld) [Mass/Vol] 13.2 g/dL Normal 12.0-15.0 [facility] Comment on above: Performed By: #### L 100.0100, L500.4050 ####[facility] [address] [place], [address] IG% 0.800 Normal 0.0-0.9 [facility] Comment on above: Result Comment: IG% - Immature Granulocytes (promyelocytes, myelocytes andmetamyelocytes) > 1% indicates that a LEFT SHIFT is Present. Performed By: #### L 100.0100, L500.4050 ####[facility] [address] [place], [address] Lymphocytes/100 WBC (Bld) 36.7 % Normal 19-41 [facility] Comment on above: Performed By: #### L 100.0100, L500.4050 ####[facility] [address] [place], [address] MCH (RBC) [Entitic mass] 27.1 pg Normal 27.0-32.0 [facility] Comment on above: Performed By: #### L 100.0100, L500.4050 ####[facility] [address] [place], [address] MCHC (RBC) [Mass/Vol] 32.6 g/dL Normal 32-36 [facility] Comment on above: Performed By: #### L 100.0100, L500.4050 ####[facility] [address] [place], [address] MCV (RBC) [Entitic vol] 83.2 fL Normal 81-99 [facility] Comment on above: Performed By: #### L 100.0100, L500.4050 ####[facility] [address] [place], [address] Monocytes/100 WBC (Bld) 7.5 % Normal 0-10 [facility] Comment on above: Performed By: #### L 100.0100, L500.4050 ####[facility] [address] [place], [address] Neutrophils/100 WBC (Bld) 52.2 % Normal 47-70 [facility] Comment on above: Performed By: #### L 100.0100, L500.4050 ####[facility] [address] [place], [address] Nucleated RBC (Bld) [#/Vol] 0 10*3/uL Normal 0-5 [facility] Comment on above: Performed By: #### L 100.0100, L500.4050 ####[facility] [address] [place], [address] Platelet mean volume (Bld) [Entitic vol] 10.1 fL Normal 6.2-12.0 [facility] Comment on above: Performed By: #### L 100.0100, L500.4050 ####[facility] [address] [place], [address] Platelets (Bld) [#/Vol] 367 10*3/uL Normal 150-450 [facility] Comment on above: Performed By: #### L 100.0100, L500.4050 ####[facility] [address] [place], [address] RBC (Bld) [#/Vol] 4.87 10*6/uL Normal 4.2-5.4 [facility] Comment on above: Performed By: #### L 100.0100, L500.4050 ####[facility] [address] [place], [address] RDW SD 42.3 fl Normal 35.1-43.9 [facility] Comment on above: Performed By: #### L 100.0100, L500.4050 ####[facility] [address] [place], [address] WBC (Bld) [#/Vol] 9.6 10*3/uL Normal 4.4-11.0 [facility] Comment on above: Performed By: #### L 100.0100, L500.4050 ####[facility] [address] [place], [address] Carbon dioxide, total [Moles /volume] in Central venous bloodOrdered By: Nayana Peter on 12-13-2024 CO2 [Moles/Vol] 26.2 mmol/L 21.0-32.0 [facility] Chloride assayOrdered By: Tiffanie Peter on 12-13-2024 Chloride [Moles/Vol] 99 mmol/L 98-108 [facility] Comprehensive Metabolic Prof ilon 12-13-2024 Albumin [Mass/Vol] 3.8 g/dL Normal 3.5-5.0 [facility] Comment on above: Performed By: #### L 100.0100, L500.4050 ####[facility] [address] [place], [address] Albumin/Globulin [Mass ratio] 1.2 {ratio} Normal 0.9-2.4 [facility] Comment on above: Performed By: #### L 100.0100, L500.4050 ####[facility] [address] [place], [address] ALK PHOS 100 U/L Normal 35-104 [facility] Comment on above: Performed By: #### L 100.0100, L500.4050 ####[facility] [address] [place], [address] ALT [Catalytic activity/Vol] 36 U/L High <=34 [facility] Comment on above: Performed By: #### L 100.0100, L500.4050 ####[facility] [address] [place], [address] AST [Catalytic activity/Vol] 37 U/L High <=31 [facility] Comment on above: Performed By: #### L 100.0100, L500.4050 ####[facility] [address] [place], [address] Bilirubin [Mass/Vol] 0.30 mg/dL Normal 0.00-1.30 [facility] Comment on above: Performed By: #### L 100.0100, L500.4050 ####[facility] [address] [place], [address] BUN/CRE 6.2 RATIO Low 10-20 [facility] Comment on above: Performed By: #### L 100.0100, L500.4050 ####[facility] [address] [place], [address] Calcium [Mass/Vol] 8.8 mg/dL Normal 7.6-11.0 [facility] Comment on above: Performed By: #### L 100.0100, L500.4050 ####[facility] [address] [place], [address] Chloride [Moles/Vol] 99 mmol/L Normal 98-108 [facility] Comment on above: Performed By: #### L 100.0100, L500.4050 ####[facility] [address] [place], [address] CO2 [Moles/Vol] 26.2 mmol/L Normal 21.0-32.0 [facility] Comment on above: Performed By: #### L 100.0100, L500.4050 ####[facility] [address] [place], [address] Creatinine [Mass/Vol] 0.86 mg/dL Normal 0.70-1.20 [facility] Comment on above: Performed By: #### L 100.0100, L500.4050 ####[facility] [address] [place], [address] GAP 13 Normal 5-15 [facility] Comment on above: Performed By: #### L 100.0100, L500.4050 ####[facility] [address] [place], [address] GFR/1.73 sq M.predicted among non-blacks MDRD (S/P/Bld) [Vol rate/Area] 92 mL/min/{1.73_m2} Normal >60 [facility] Comment on above: Result Comment: mL/m in/1.73m2 CKD-EPI Creatinine Equation (2020) Performed By: #### L 100.0100, L500.4050 ####[facility] [address] [place], [address] Globulin (S) [Mass/Vol] 3.3 g/dL Normal 2.2-4.2 [facility] Comment on above: Performed By: #### L 100.0100, L500.4050 ####[facility] [address] [place], [address] Glucose [Mass/Vol] 251 mg/dL High 70-99 [facility] Comment on above: Performed By: #### L 100.0100, L500.4050 ####[facility] [address] [place], [address] Potassium [Moles/Vol] 4.0 mmol/L Normal 3.3-5.1 [facility] Comment on above: Performed By: #### L 100.0100, L500.4050 ####[facility] [address] [place], [address] Sodium [Moles/Vol] 139 mmol/L Normal 133-145 [facility] Comment on above: Performed By: #### L 100.0100, L500.4050 ####[facility] [address] [place], [address] T PROT 7.2 g/dL Normal 5.9-8.4 [facility] Comment on above: Performed By: #### L 100.0100, L500.4050 ####[facility] [address] [place], [address] Urea nitrogen [Mass/Vol] 5 mg/dL Normal 4-19 [facility] Comment on above: Performed By: #### L 100.0100, L500.4050 ####[facility] [address] [place], [address] Eosinophil percentageOrdered By: Nayana Peter on 12-13-2024 Eosinophils/100 WBC (Bld) 2.0 % 0-5 [facility] Erythrocyte distribution wid th ratioOrdered By: Nayana Peter on 12-13-2024 Erythrocyte distribution width (RBC) [Ratio] 14.0 % 11.6-14.6 [facility] Erythrocyte distribution wid th standard deviationOrdered By: Nayana Peter on 12-13-2024 Erythrocyte distribution width (RBC) [Ratio] 42.3 fl 35.1-43.9 [facility] Gastroenterology Visit Repor ton 12-13-2024 Gastroenterology Visit Report Normal [facility] Glomerular filtration rate ( GFR) estimation/1.73 sq m using serum, plasma, or whole bOrdered By: Nayana Peter on 12-13-2024 GFR/1.73 sq M.predicted among non-blacks MDRD (S/P/Bld) [Vol rate/Area] 92 mL/min/{1.73_m2} >60 [facility] Comment on above: mL/min/1.73m2 CKD-EP I Creatinine Equation (2020) Hematocrit Auto (Bld) [Volum e fraction]Ordered By: Nayana Peter on 12-13-2024 Hematocrit (Bld) [Volume fraction] 40.5 % 37-47 [facility] Hemoglobin measurementOrdere d By: Nayana Peter on 12-13-2024 Hemoglobin (Bld) [Mass/Vol] 13.2 g/dL 12.0-15.0 [facility] Immature granulocytes/100 WB C Auto (Bld)Ordered By: Nayana Peter on 12-13-2024 Immature granulocytes/100 WBC (Bld) 0.800 % 0.0-0.9 [facility] Comment on above: IG% - Immature Granu locytes (promyelocytes, myelocytes and metamyelocytes) > 1% indicates that a LEFT SHIFT is Present. Laboratory - Chemistry and C hemistry - challengeOrdered By: Nayana Peter on 12-13-2024 AST [Catalytic activity/Vol] 37 U/L High <32 [facility] MCV (mean corpuscular volume ) determinationOrdered By: Nayana Peter on 12-13-2024 MCV (RBC) [Entitic vol] 83.2 fL 81-99 [facility] Mean corpuscular hemoglobin (MCH) determinationOrdered By: Nayana Peter on 12-13-2024 MCH (RBC) [Entitic mass] 27.1 pg 27.0-32.0 [facility] Mean corpuscular hemoglobin concentration (MCHC) determinationOrdered By: Nayana Peter on 12-13-2024 MCHC (RBC) [Mass/Vol] 32.6 g/dL 32-36 [facility] Mean platelet volume determi nationOrdered By: Nayana Peter on 12-13-2024 Platelet mean volume (Bld) [Entitic vol] 10.1 fL 6.2-12.0 [facility] Monocyte percentageOrdered B y: Nayana Peter on 12-13-2024 Monocytes/100 WBC (Bld) 7.5 % 0-10 [facility] Neutrophil percentageOrdered By: Nayana Peter on 12-13-2024 Neutrophils/100 WBC (Bld) 52.2 % 47-70 [facility] No Panel InformationOrdered By: Nayana Peter on 12-13-2024 37 U/L High <32 [facility] Nucleated red blood cell per centageOrdered By: Nayana Peter on 12-13-2024 Nucleated RBC/100 WBC (Bld) [Ratio] 0 % 0-5 [facility] Platelet countOrdered By: Tiffanie Peter on 12-13-2024 Platelets (Bld) [#/Vol] 367 10*3/uL 150-450 [facility] Potassium measurement (mass/ volume)Ordered By: Nayana Peter on 12-13-2024 Potassium (Unsp spec) [Mass/Vol] 4.0 mmol/L 3.3-5.1 [facility] RBC Auto (Bld) [#/Vol]Ordere d By: Nayana Peter on 12-13-2024 RBC (Bld) [#/Vol] 4.87 10*6/uL 4.2-5.4 [facility] Serum creatinine measurement (mass/volume)Ordered By: Nayana Peter on 12-13-2024 Creatinine [Mass/Vol] 0.86 mg/dL 0.70-1.20 [facility] Serum globulin measurementOr dered By: Nayana Peter on 12-13-2024 Globulin (S) [Mass/Vol] 3.3 g/dL 2.2-4.2 [facility] Serum glucose measurement (m ass/volume)Ordered By: Nayana Peter on 12-13-2024 Glucose [Mass/Vol] 251 mg/dL High 70-99 [facility] Serum or plasma alanine jordan otransferase (ALT) measurementOrdered By: Nayana Peter on 12-13-2024 ALT [Catalytic activity/Vol] 36 U/L High <35 [facility] Serum or plasma albumin hussein urement (mass/volume)Ordered By: Nayana Peter on 12-13-2024 Albumin [Mass/Vol] 3.8 g/dL 3.5-5.0 [facility] Serum or plasma albumin/glob ulin mass ratioOrdered By: Nayana Peter on 12-13-2024 Albumin/Globulin [Mass ratio] 1.2 {ratio} 0.9-2.4 [facility] Serum or plasma alkaline bradley sphatase measurementOrdered By: Nayana Peter on 12-13-2024 ALP [Catalytic activity/Vol] 100 U/L 35-104 [facility] Serum or plasma calcium hussein urement (mass/volume)Ordered By: Nayana Peter on 12-13-2024 Calcium [Mass/Vol] 8.8 mg/dL 7.6-11.0 [facility] Serum or plasma urea nitroge n measurement (mass/volume)Ordered By: Nayana Peter on 12-13-2024 Urea nitrogen [Mass/Vol] 5 mg/dL 4-19 [facility] Sodium levelOrdered By: Oh Peter on 12-13-2024 Sodium [Moles/Vol] 139 mmol/L 133-145 [facility] Total proteinOrdered By: Candie Peter on 12-13-2024 Protein [Mass/Vol] 7.2 g/dL 5.9-8.4 [facility] White blood cell (WBC) count Ordered By: Nayana Peter on 12-13-2024 WBC (Bld) [#/Vol] 9.6 10*3/uL 4.4-11.0 [facility] Culture, Blood (WB)on 2024 CUB Blood cultures x2, f rom two different sites No growth in 5 days. Normal [facility] Comment on above: Performed By: #### M 200.1000, L503.6005 ####[facility] [address] [facility] [place], [place], [id number] CUB Blood cultures x2, f rom two different sites No growth in 5 days. Normal [facility] Comment on above: Performed By: #### M 200.1000 ####[facility] [address] [facility] [facility] [place], [place], [address] Absolute lymphocyte countOrd ered By: Gale Lr on 11-28-2024 Lymphocytes Auto (Unsp spec) [#/Vol] 5.24 10*3/uL High 0.83-4.51 [facility] Absolute neutrophil countOrd ered By: Gale Lr on 11-28-2024 Neutrophils (Bld) [#/Vol] 6.1 10*3/uL 2.0-7.7 [facility] Anion gap in Serum or Plasma Ordered By: Gale Lr on 11-28-2024 Anion gap [Moles/Vol] 12 mmol/L 5-15 [facility] Automated lymphocyte count a s percentage of total leukocytesOrdered By: Gale Lr on 11-28-2024 Lymphocytes/100 WBC Auto (Unsp spec) 43.0 % High - [facility] BUN/creatinine ratioOrdered By: Gale Lr on 11-28-2024 Urea nitrogen/Creatinine [Mass ratio] 12.2 mg/mg - [facility] Basic Metabolic Profile (BMP )on 11-28-2024 BUN Normal - [facility] Comment on above: Result Comment: DUPL ICATE Performed By: #### L 500.2500, L100.0100 ####[facility] [address] [place], [address] BUN/CRE Normal - [facility] Comment on above: Result Comment: DUPL ICATE Performed By: #### L 500.2500, L100.0100 ####[facility] [address] [place], [address] Calcium Normal 7.6-11.0 [facility] Comment on above: Result Comment: DUPL ICATE Performed By: #### L 500.2500, L100.0100 ####[facility] [address] [place], [address] CL Normal 98-108 [facility] Comment on above: Result Comment: DUPL ICATE Performed By: #### L 500.2500, L100.0100 ####[facility] [address] [place], [address] CO2 Normal 21.0-32.0 [facility] Comment on above: Result Comment: DUPL ICATE Performed By: #### L 500.2500, L100.0100 ####[facility] [address] [place], [address] CREAT,SERUM Normal 0.70-1.20 [facility] Comment on above: Result Comment: DUPL ICATE Performed By: #### L 500.2500, L100.0100 ####[facility] [address] [place], [address] eGFR Normal >60 [facility] Comment on above: Result Comment: DUPL ICATE Performed By: #### L 500.2500, L100.0100 ####[facility] [address] [place], [address] GAP Normal 5-15 [facility] Comment on above: Result Comment: DUPL ICATE Performed By: #### L 500.2500, L100.0100 ####[facility] [address] [place], [address] GLU Normal 70-99 [facility] Comment on above: Result Comment: DUPL ICATE Performed By: #### L 500.2500, L100.0100 ####[facility] [address] [place], [address] Potassium Normal 3.3-5.1 [facility] Comment on above: Result Comment: DUPL ICATE Performed By: #### L 500.2500, L100.0100 ####[facility] [address] [place], [address] Basic Metabolic Profile (BMP) Normal 133-145 [facility] Comment on above: Result Comment: DUPL ICATE Performed By: #### L 500.2500, L100.0100 ####[facility] [address] [place], [address] BUN/CRE 12.2 RATIO Normal 10-20 [facility] Comment on above: Performed By: #### L 100.0100, L500.2500 ####[facility] [address] [place], [address] Calcium [Mass/Vol] 7.9 mg/dL Normal 7.6-11.0 [facility] Comment on above: Performed By: #### L 100.0100, L500.2500 ####[facility] [address] [place], [address] Chloride [Moles/Vol] 104 mmol/L Normal 98-108 [facility] Comment on above: Performed By: #### L 100.0100, L500.2500 ####[facility] [address] [place], [address] CO2 [Moles/Vol] 24.7 mmol/L Normal 21.0-32.0 [facility] Comment on above: Performed By: #### L 100.0100, L500.2500 ####[facility] [address] [place], [address] Creatinine [Mass/Vol] 1.02 mg/dL Normal 0.70-1.20 [facility] Comment on above: Performed By: #### L 100.0100, L500.2500 ####[facility] [address] [place], [address] ECRCL 99.83 ml/min Normal 50-250 [facility] Comment on above: Performed By: #### L 100.0100, L500.2500 ####[facility] [address] [place], [address] GAP 12 Normal 5-15 [facility] Comment on above: Performed By: #### L 100.0100, L500.2500 ####[facility] [address] [place], [address] GFR/1.73 sq M.predicted among non-blacks MDRD (S/P/Bld) [Vol rate/Area] 75 mL/min/{1.73_m2} Normal >60 [facility] Comment on above: Result Comment: mL/m in/1.73m2 CKD-EPI Creatinine Equation (2020) Performed By: #### L 100.0100, L500.2500 ####[facility] [address] [place], [address] Glucose [Mass/Vol] 134 mg/dL High 70-99 [facility] Comment on above: Performed By: #### L 100.0100, L500.2500 ####[facility] [address] [place], [address] Potassium [Moles/Vol] 3.5 mmol/L Normal 3.3-5.1 [facility] Comment on above: Performed By: #### L 100.0100, L500.2500 ####[facility] [address] [place], [address] Sodium [Moles/Vol] 141 mmol/L Normal 133-145 [facility] Comment on above: Performed By: #### L 100.0100, L500.2500 ####[facility] [address] [place], [address] Urea nitrogen [Mass/Vol] 12 mg/dL Normal 4-19 [facility] Comment on above: Performed By: #### L 100.0100, L500.2500 ####[facility] [address] [place], [address] Basophil percentageOrdered B y: Galejacqueline Lr on 11-28-2024 Basophils/100 WBC (Bld) 0.6 % 0-1 [facility] Bedside Glucoseon 11-28-2024 FINGERSTICK GLU 127 mg/dL High 74-106 [facility] Comment on above: Result Comment: BULL SAMAYOA OF PATIENT CARE PER NURSING PROTOCOL Performed By: #### L 501.080 ####[facility] [address] [place], [address] CBC W/Diff, Automatedon 11-10 Absolute Neut Normal 2.0-7.7 [facility] Comment on above: Result Comment: DUPL ICATE Performed By: #### L 500.2500, L100.0100 ####[facility] [address] [place], [address] HCT Normal 37-47 [facility] Comment on above: Result Comment: DUPL ICATE Performed By: #### L 500.2500, L100.0100 ####[facility] [address] [place], [address] HGB Normal 12.0-15.0 [facility] Comment on above: Result Comment: DUPL ICATE Performed By: #### L 500.2500, L100.0100 ####[facility] [address] [place], [address] MCH Normal 27.0-32.0 [facility] Comment on above: Result Comment: DUPL ICATE Performed By: #### L 500.2500, L100.0100 ####[facility] [address] [place], [address] MCHC Normal 32-36 [facility] Comment on above: Result Comment: DUPL ICATE Performed By: #### L 500.2500, L100.0100 ####[facility] [address] [place], [address] MCV Normal 81-99 [facility] Comment on above: Result Comment: DUPL ICATE Performed By: #### L 500.2500, L100.0100 ####[facility] [address] [place], [address] NEUT% Normal 47-70 [facility] Comment on above: Result Comment: DUPL ICATE Performed By: #### L 500.2500, L100.0100 ####[facility] [address] [place], [address] PLT Normal 150-450 [facility] Comment on above: Result Comment: DUPL ICATE Performed By: #### L 500.2500, L100.0100 ####[facility] [address] [place], [address] RBC Normal 4.2-5.4 [facility] Comment on above: Result Comment: DUPL ICATE Performed By: #### L 500.2500, L100.0100 ####[facility] [address] [place], [address] RDW CV Normal 11.6-14.6 [facility] Comment on above: Result Comment: DUPL ICATE Performed By: #### L 500.2500, L100.0100 ####[facility] [address] [place], [address] RDW SD Normal 35.1-43.9 [facility] Comment on above: Result Comment: DUPL ICATE Performed By: #### L 500.2500, L100.0100 ####[facility] [address] [place], [address] WBC Normal 4.4-11.0 [facility] Comment on above: Result Comment: DUPL ICATE Performed By: #### L 500.2500, L100.0100 ####[facility] [address] [place], [address] Absolute Lymph 5.24 X10 3/uL High 0.83-4.51 [facility] Comment on above: Performed By: #### L 100.0100, L500.2500 ####[facility] [address] [place], [address] Absolute Neut 6.1 X10 3/uL Normal 2.0-7.7 [facility] Comment on above: Performed By: #### L 100.0100, L500.2500 ####[facility] [address] [place], [address] Basophils/100 WBC (Bld) 0.6 % Normal 0-1 [facility] Comment on above: Performed By: #### L 100.0100, L500.2500 ####[facility] [address] [place], [address] Eosinophils/100 WBC (Bld) 0.5 % Normal 0-5 [facility] Comment on above: Performed By: #### L 100.0100, L500.2500 ####[facility] [address] [place], [address] Erythrocyte distribution width (RBC) [Ratio] 13.7 % Normal 11.6-14.6 [facility] Comment on above: Performed By: #### L 100.0100, L500.2500 ####[facility] [address] [place], [address] Hematocrit (Bld) [Volume fraction] 37.0 % Normal 37-47 [facility] Comment on above: Performed By: #### L 100.0100, L500.2500 ####[facility] [address] [place], [address] Hemoglobin (Bld) [Mass/Vol] 12.1 g/dL Normal 12.0-15.0 [facility] Comment on above: Performed By: #### L 100.0100, L500.2500 ####[facility] [address] [place], [address] IG% 0.800 Normal 0.0-0.9 [facility] Comment on above: Result Comment: IG% - Immature Granulocytes (promyelocytes, myelocytes andmetamyelocytes) > 1% indicates that a LEFT SHIFT is Present. Performed By: #### L 100.0100, L500.2500 ####[facility] [address] [place], [address] Lymphocytes/100 WBC (Bld) 43.0 % High 19-41 [facility] Comment on above: Performed By: #### L 100.0100, L500.2500 ####[facility] [address] [place], [address] MCH (RBC) [Entitic mass] 27.3 pg Normal 27.0-32.0 [facility] Comment on above: Performed By: #### L 100.0100, L500.2500 ####[facility] [address] [place], [address] MCHC (RBC) [Mass/Vol] 32.7 g/dL Normal 32-36 [facility] Comment on above: Performed By: #### L 100.0100, L500.2500 ####[facility] [address] [place], [address] MCV (RBC) [Entitic vol] 83.3 fL Normal 81-99 [facility] Comment on above: Performed By: #### L 100.0100, L500.2500 ####[facility] [address] [place], [address] Monocytes/100 WBC (Bld) 5.3 % Normal 0-10 [facility] Comment on above: Performed By: #### L 100.0100, L500.2500 ####[facility] [address] [place], [address] Neutrophils/100 WBC (Bld) 49.8 % Normal 47-70 [facility] Comment on above: Performed By: #### L 100.0100, L500.2500 ####[facility] [address] [place], [address] Nucleated RBC (Bld) [#/Vol] 0 10*3/uL Normal 0-5 [facility] Comment on above: Performed By: #### L 100.0100, L500.2500 ####[facility] [address] [place], [address] Platelet mean volume (Bld) [Entitic vol] 9.3 fL Normal 6.2-12.0 [facility] Comment on above: Performed By: #### L 100.0100, L500.2500 ####[facility] [address] [place], [address] Platelets (Bld) [#/Vol] 400 10*3/uL Normal 150-450 [facility] Comment on above: Performed By: #### L 100.0100, L500.2500 ####[facility] [address] [place], [address] RBC (Bld) [#/Vol] 4.44 10*6/uL Normal 4.2-5.4 [facility] Comment on above: Performed By: #### L 100.0100, L500.2500 ####[facility] [address] [place], [address] RDW SD 41.8 fl Normal 35.1-43.9 [facility] Comment on above: Performed By: #### L 100.0100, L500.2500 ####[facility] [address] [place], [address] WBC (Bld) [#/Vol] 12.2 10*3/uL High 4.4-11.0 [facility] Comment on above: Performed By: #### L 100.0100, L500.2500 ####[facility] [address] [place], [address] Carbon dioxide, total [Moles /volume] in Central venous bloodOrdered By: Gale Lr on 11-28-2024 CO2 [Moles/Vol] 24.7 mmol/L 21.0-32.0 [facility] Chloride assayOrdered By: Sun Lr on 11-28-2024 Chloride [Moles/Vol] 104 mmol/L 98-108 [facility] Eosinophil percentageOrdered By: Gale Lr on 11-28-2024 Eosinophils/100 WBC (Bld) 0.5 % 0-5 [facility] Erythrocyte distribution wid th ratioOrdered By: Gale Lr on 11-28-2024 Erythrocyte distribution width (RBC) [Ratio] 13.7 % 11.6-14.6 [facility] Erythrocyte distribution wid th standard deviationOrdered By: Gale Lr on 11-28-2024 Erythrocyte distribution width (RBC) [Ratio] 41.8 fl 35.1-43.9 [facility] Glomerular filtration rate ( GFR) estimation/1.73 sq m using serum, plasma, or whole bOrdered By: Gale Lr on 11-28-2024 GFR/1.73 sq M.predicted among non-blacks MDRD (S/P/Bld) [Vol rate/Area] 75 mL/min/{1.73_m2} >60 [facility] Comment on above: mL/min/1.73m2 CKD-EP I Creatinine Equation (2020) [facility]ucose [facility] at [facility] deOrdered By: Gale Lr on 11-28-2024 Glucose [Mass/Vol] 127 mg/dL High 74-106 [facility] Comment on above: MANAGEMENT OF PATIEN T CARE PER NURSING PROTOCOL Hematocrit Auto (Bld) [Volum e fraction]Ordered By: Gale Lr on 11-28-2024 Hematocrit (Bld) [Volume fraction] 37.0 % 37-47 [facility] Hemoglobin measurementOrdere d By: Gale Lr on 11-28-2024 Hemoglobin (Bld) [Mass/Vol] 12.1 g/dL 12.0-15.0 [facility] Immature granulocytes/100 WB C Auto (Bld)Ordered By: Gale Lr on 11-28-2024 Immature granulocytes/100 WBC (Bld) 0.800 % 0.0-0.9 [facility] Comment on above: IG% - Immature Granu locytes (promyelocytes, myelocytes and metamyelocytes) > 1% indicates that a LEFT SHIFT is Present. MCV (mean corpuscular volume ) determinationOrdered By: Gale Lr on 11-28-2024 MCV (RBC) [Entitic vol] 83.3 fL 81-99 [facility] Mean corpuscular hemoglobin (MCH) determinationOrdered By: Gale Lr on 11-28-2024 MCH (RBC) [Entitic mass] 27.3 pg 27.0-32.0 [facility] Mean corpuscular hemoglobin concentration (MCHC) determinationOrdered By: Gale Lr on 11-28-2024 MCHC (RBC) [Mass/Vol] 32.7 g/dL 32-36 [facility] Mean platelet volume determi nationOrdered By: Gale Lr on 11-28-2024 Platelet mean volume (Bld) [Entitic vol] 9.3 fL 6.2-12.0 [facility] Monocyte percentageOrdered B y: Gale Lr on 11-28-2024 Monocytes/100 WBC (Bld) 5.3 % 0-10 [facility] Neutrophil percentageOrdered By: Gale Lr on 11-28-2024 Neutrophils/100 WBC (Bld) 49.8 % 47-70 [facility] Nucleated red blood cell per centageOrdered By: Gale Lr on 11-28-2024 Nucleated RBC/100 WBC (Bld) [Ratio] 0 % 0-5 [facility] Platelet countOrdered By: Sun Lr on 11-28-2024 Platelets (Bld) [#/Vol] 400 10*3/uL 150-450 [facility] Potassium measurement (mass/ volume)Ordered By: Gale Lr on 11-28-2024 Potassium (Unsp spec) [Mass/Vol] 3.5 mmol/L 3.3-5.1 [facility] RBC Auto (Bld) [#/Vol]Ordere d By: Gale Lr on 11-28-2024 RBC (Bld) [#/Vol] 4.44 10*6/uL 4.2-5.4 [facility] Serum creatinine measurement (mass/volume)Ordered By: Gale Lr on 11-28-2024 Creatinine [Mass/Vol] 1.02 mg/dL 0.70-1.20 [facility] Serum glucose measurement (m ass/volume)Ordered By: Gale Lr on 11-28-2024 Glucose [Mass/Vol] 134 mg/dL High 70-99 [facility] Serum or plasma calcium hussein urement (mass/volume)Ordered By: Gale Lr on 11-28-2024 Calcium [Mass/Vol] 7.9 mg/dL 7.6-11.0 [facility] Serum or plasma urea nitroge n measurement (mass/volume)Ordered By: Gale Lr on 11-28-2024 Urea nitrogen [Mass/Vol] 12 mg/dL 4-19 [facility] Sodium levelOrdered By: Argelia Lr on 11-28-2024 Sodium [Moles/Vol] 141 mmol/L 133-145 [facility] White blood cell (WBC) count Ordered By: Gale Lr on 11-28-2024 WBC (Bld) [#/Vol] 12.2 10*3/uL High 4.4-11.0 [facility] Abdomen/Pelvis WITH Contrast on 11-27-2024 Abdomen/Pelvis WITH Contrast Normal [facility] Basic Metabolic Profile (BMP )on 11-27-2024 BUN/CRE 15.0 RATIO Normal 04-30 [facility] Comment on above: Performed By: #### L 500.2500, L100.0100 ####[facility] [address] [place], [address] Calcium [Mass/Vol] 7.9 mg/dL Normal 7.6-11.0 [facility] Comment on above: Performed By: #### L 500.2500, L100.0100 ####[facility] [address] [place], [address] Chloride [Moles/Vol] 102 mmol/L Normal 98-108 [facility] Comment on above: Performed By: #### L 500.2500, L100.0100 ####[facility] [address] [place], [address] CO2 [Moles/Vol] 24.2 mmol/L Normal 21.0-32.0 [facility] Comment on above: Performed By: #### L 500.2500, L100.0100 ####[facility] [address] [place], [address] Creatinine [Mass/Vol] 1.07 mg/dL Normal 0.70-1.20 [facility] Comment on above: Performed By: #### L 500.2500, L100.0100 ####[facility] [address] [place], [address] ECRCL 95.16 ml/min Normal 50-250 [facility] Comment on above: Performed By: #### L 500.2500, L100.0100 ####[facility] [address] [place], [address] GAP 13 Normal 5-15 [facility] Comment on above: Performed By: #### L 500.2500, L100.0100 ####[facility] [address] [place], [address] GFR/1.73 sq M.predicted among non-blacks MDRD (S/P/Bld) [Vol rate/Area] 71 mL/min/{1.73_m2} Normal >60 [facility] Comment on above: Result Comment: mL/m in/1.73m2 CKD-EPI Creatinine Equation (2020) Performed By: #### L 500.2500, L100.0100 ####[facility] [address] [place], [address] Glucose [Mass/Vol] 217 mg/dL High 70-99 [facility] Comment on above: Performed By: #### L 500.2500, L100.0100 ####[facility] [address] [place], [address] Potassium [Moles/Vol] 4.1 mmol/L Normal 3.3-5.1 [facility] Comment on above: Performed By: #### L 500.2500, L100.0100 ####[facility] [address] [place], [address] Sodium [Moles/Vol] 139 mmol/L Normal 133-145 [facility] Comment on above: Performed By: #### L 500.2500, L100.0100 ####[facility] [address] [place], [address] Urea nitrogen [Mass/Vol] 16 mg/dL Normal 4-19 [facility] Comment on above: Performed By: #### L 500.2500, L100.0100 ####[facility] [address] [place], [address] Bedside Glucoseon 11-27-2024 FINGERSTICK GLU 175 mg/dL High 74-106 [facility] Comment on above: Result Comment: BULL GEMENT OF PATIENT CARE PER NURSING PROTOCOL Performed By: #### L 501.080 ####[facility] [address] [place], [address] FINGERSTICK GLU 147 mg/dL High -106 [facility] Comment on above: Result Comment: BULL GEMENT OF PATIENT CARE PER NURSING PROTOCOL Performed By: #### L 501.080 ####[facility] [address] [place], [address] FINGERSTICK GLU 197 mg/dL High [facility]106 [facility] Comment on above: Result Comment: BULL GEMENT OF PATIENT CARE PER NURSING PROTOCOL Performed By: #### L 501.080 ####[facility] [address] [place], [address] FINGERSTICK GLU 185 mg/dL High [facility]106 [facility] Comment on above: Result Comment: BULL GEMENT OF PATIENT CARE PER NURSING PROTOCOL Performed By: #### L 501.080 ####[facility] [address] [place], [address] Bilirubin directOrdered By: Gale Lr on 11-27-2024 Bilirubin.direct [Mass/Vol] 0.14 mg/dL 0.00-0.30 [facility] Bilirubin, totalOrdered By: Gale Lr on 11-27-2024 Bilirubin [Mass/Vol] 0.35 mg/dL 0.00-1.30 [facility] CBC W/Diff, Automatedon 11-09 Absolute Lymph 2.31 X10 3/uL Normal 0.83-4.51 [facility] Comment on above: Performed By: #### L 500.2500, L100.0100 ####[facility] [address] [place], [address] Absolute Neut 9.7 X10 3/uL High 2.0-7.7 [facility] Comment on above: Performed By: #### L 500.2500, L100.0100 ####[facility] [address] [place], [address] Basophils/100 WBC (Bld) 0.2 % Normal 0-1 [facility] Comment on above: Performed By: #### L 500.2500, L100.0100 ####[facility] [address] [place], [address] Eosinophils/100 WBC (Bld) 0.0 % Normal 0-5 [facility] Comment on above: Performed By: #### L 500.2500, L100.0100 ####[facility] [address] [place], [address] Erythrocyte distribution width (RBC) [Ratio] 13.8 % Normal 11.6-14.6 [facility] Comment on above: Performed By: #### L 500.2500, L100.0100 ####[facility] [address] [place], [address] Hematocrit (Bld) [Volume fraction] 34.7 % Low 37-47 [facility] Comment on above: Performed By: #### L 500.2500, L100.0100 ####[facility] [address] [place], [address] Hemoglobin (Bld) [Mass/Vol] 11.3 g/dL Low 12.0-15.0 [facility] Comment on above: Performed By: #### L 500.2500, L100.0100 ####[facility] [address] [place], [address] IG% 0.600 Normal 0.0-0.9 [facility] Comment on above: Result Comment: IG% - Immature Granulocytes (promyelocytes, myelocytes andmetamyelocytes) > 1% indicates that a LEFT SHIFT is Present. Performed By: #### L 500.2500, L100.0100 ####[facility] [address] [place], [address] Lymphocytes/100 WBC (Bld) 18.1 % Low 19-41 [facility] Comment on above: Performed By: #### L 500.2500, L100.0100 ####[facility] [address] [place], [address] MCH (RBC) [Entitic mass] 27.0 pg Normal 27.0-32.0 [facility] Comment on above: Performed By: #### L 500.2500, L100.0100 ####[facility] [address] [place], [address] MCHC (RBC) [Mass/Vol] 32.6 g/dL Normal 32-36 [facility] Comment on above: Performed By: #### L 500.2500, L100.0100 ####[facility] [address] [place], [address] MCV (RBC) [Entitic vol] 83.0 fL Normal 81-99 [facility] Comment on above: Performed By: #### L 500.2500, L100.0100 ####[facility] [address] [place], [address] Monocytes/100 WBC (Bld) 5.2 % Normal 0-10 [facility] Comment on above: Performed By: #### L 500.2500, L100.0100 ####[facility] [address] [place], [address] Neutrophils/100 WBC (Bld) 75.9 % High 47-70 [facility] Comment on above: Performed By: #### L 500.2500, L100.0100 ####[facility] [address] [place], [address] Nucleated RBC (Bld) [#/Vol] 0 10*3/uL Normal 0-5 [facility] Comment on above: Performed By: #### L 500.2500, L100.0100 ####[facility] [address] [place], [address] Platelet mean volume (Bld) [Entitic vol] 9.6 fL Normal 6.2-12.0 [facility] Comment on above: Performed By: #### L 500.2500, L100.0100 ####[facility] [address] [place], [address] Platelets (Bld) [#/Vol] 354 10*3/uL Normal 150-450 [facility] Comment on above: Performed By: #### L 500.2500, L100.0100 ####[facility] [address] [place], [address] RBC (Bld) [#/Vol] 4.18 10*6/uL Low 4.2-5.4 [facility] Comment on above: Performed By: #### L 500.2500, L100.0100 ####[facility] [address] [place], [address] RDW SD 42.2 fl Normal 35.1-43.9 [facility] Comment on above: Performed By: #### L 500.2500, L100.0100 ####[facility] [address] [place], [address] WBC (Bld) [#/Vol] 12.8 10*3/uL High 4.4-11.0 [facility] Comment on above: Performed By: #### L 500.2500, L100.0100 ####[facility] [address] [place], [address] Laboratory - Chemistry and C hemistry - challengeOrdered By: Gale Lr on 11-27-2024 AST [Catalytic activity/Vol] 21 U/L <32 [facility] Liver Profileon 11-27-2024 Albumin [Mass/Vol] 3.5 g/dL Normal 3.5-5.0 [facility] Comment on above: Performed By: #### L 500.3400 ####[facility] [address] [place], [address] ALK PHOS 88 U/L Normal 35-104 [facility] Comment on above: Performed By: #### L 500.3400 ####[facility] [address] [place], [address] ALT [Catalytic activity/Vol] 12 U/L Normal <=34 [facility] Comment on above: Performed By: #### L 500.3400 ####[facility] [address] [place], [address] AST [Catalytic activity/Vol] 21 U/L Normal <=31 [facility] Comment on above: Performed By: #### L 500.3400 ####[facility] [address] [place], [address] Bilirubin [Mass/Vol] 0.35 mg/dL Normal 0.00-1.30 [facility] Comment on above: Performed By: #### L 500.3400 ####[facility] [address] [place], [address] Bilirubin.direct [Mass/Vol] 0.14 mg/dL Normal 0.00-0.30 [facility] Comment on above: Performed By: #### L 500.3400 ####[facility] [address] [place], [address] Globulin (S) [Mass/Vol] 3.6 g/dL Normal 2.2-4.2 [facility] Comment on above: Performed By: #### L 500.3400 ####[facility] [address] [place], [place], [address] T PROT 7.1 g/dL Normal 5.9-8.4 [facility] Comment on above: Performed By: #### L 500.3400 ####[facility] [address] [place], [place], [address] No Panel InformationOrdered By: Gale Lr on 11-27-2024 21 U/L <32 [facility] Serum globulin measurementOr dered By: Gale Lr on 11-27-2024 Globulin (S) [Mass/Vol] 3.6 g/dL 2.2-4.2 [facility] Serum or plasma alanine jordan otransferase (ALT) measurementOrdered By: Gale Lr on 11-27-2024 ALT [Catalytic activity/Vol] 12 U/L <35 [facility] Serum or plasma albumin hussein urement (mass/volume)Ordered By: Gale Lr on 11-27-2024 Albumin [Mass/Vol] 3.5 g/dL 3.5-5.0 [facility] Serum or plasma alkaline bradley sphatase measurementOrdered By: Gale Lr on 11-27-2024 ALP [Catalytic activity/Vol] 88 U/L 35-104 [facility] Total proteinOrdered By: Sugar Lr on 11-27-2024 Protein [Mass/Vol] 7.1 g/dL 5.9-8.4 [facility] Abdomen Single Viewon 2024 Abdomen Single View Normal [facility] Basic Metabolic Profile (BMP )on 11-26-2024 BUN/CRE 15.0 RATIO Normal 10-20 [facility] Comment on above: Performed By: #### L 500.2500, L100.0100 ####[facility] [address] [place], [place], [id number] Calcium [Mass/Vol] 7.8 mg/dL Normal 7.6-11.0 [facility] Comment on above: Performed By: #### L 500.2500, L100.0100 ####[facility] [address] [place], [address] Chloride [Moles/Vol] 104 mmol/L Normal 98-108 [facility] Comment on above: Performed By: #### L 500.2500, L100.0100 ####[facility] [address] [place], [address] CO2 [Moles/Vol] 22.6 mmol/L Normal 21.0-32.0 [facility] Comment on above: Performed By: #### L 500.2500, L100.0100 ####[facility] [address] [place], [address] Creatinine [Mass/Vol] 1.16 mg/dL Normal 0.70-1.20 [facility] Comment on above: Performed By: #### L 500.2500, L100.0100 ####[facility] [address] [place], [address] ECRCL 87.78 ml/min Normal 50-250 [facility] Comment on above: Performed By: #### L 500.2500, L100.0100 ####[facility] [address] [place], [address] GAP 11 Normal 5-15 [facility] Comment on above: Performed By: #### L 500.2500, L100.0100 ####[facility] [address] [place], [address] GFR/1.73 sq M.predicted among non-blacks MDRD (S/P/Bld) [Vol rate/Area] 64 mL/min/{1.73_m2} Normal >60 [facility] Comment on above: Result Comment: mL/m in/1.73m2 CKD-EPI Creatinine Equation (2020) Performed By: #### L 500.2500, L100.0100 ####[facility] [address] [place], [address] Glucose [Mass/Vol] 148 mg/dL High 70-99 [facility] Comment on above: Performed By: #### L 500.2500, L100.0100 ####[facility] [address] [place], [address] Potassium [Moles/Vol] 4.0 mmol/L Normal 3.3-5.1 [facility] Comment on above: Performed By: #### L 500.2500, L100.0100 ####[facility] [address] [place], [address] Sodium [Moles/Vol] 137 mmol/L Normal 133-145 [facility] Comment on above: Performed By: #### L 500.2500, L100.0100 ####[facility] [address] [place], [address] Urea nitrogen [Mass/Vol] 17 mg/dL Normal 4-19 [facility] Comment on above: Performed By: #### L 500.2500, L100.0100 ####[facility] [address] [place], [address] Bedside Glucoseon 11-26-2024 FINGERSTICK GLU 185 mg/dL High 74-106 [facility] Comment on above: Result Comment: BULL GEMENT OF PATIENT CARE PER NURSING PROTOCOL Performed By: #### L 501.080 ####[facility] [address] [place], [address] FINGERSTICK GLU 218 mg/dL High 74-106 [facility] Comment on above: Result Comment: BULL GEMENT OF PATIENT CARE PER NURSING PROTOCOL Performed By: #### L 501.080 ####[facility] [address] [place], [address] FINGERSTICK GLU 202 mg/dL High 74-106 [facility] Comment on above: Result Comment: BULL GEMENT OF PATIENT CARE PER NURSING PROTOCOL Performed By: #### L 501.080 ####[facility] [address] [place], [address] FINGERSTICK GLU 160 mg/dL High 74-106 [facility] Comment on above: Result Comment: BULL GEMENT OF PATIENT CARE PER NURSING PROTOCOL Performed By: #### L 501.080 ####[facility] [address] [place], [address] FINGERSTICK GLU 166 mg/dL High 74-106 [facility] Comment on above: Result Comment: BULL GEMENT OF PATIENT CARE PER NURSING PROTOCOL Performed By: #### L 501.080 ####[facility] [address] [place], [address] CBC W/Diff, Automatedon 11-09 Absolute Lymph 3.42 X10 3/uL Normal 0.83-4.51 [facility] Comment on above: Performed By: #### L 500.2500, L100.0100 ####[facility] [address] [place], [address] Absolute Neut 12.9 X10 3/uL High 2.0-7.7 [facility] Comment on above: Performed By: #### L 500.2500, L100.0100 ####[facility] [address] [place], [address] Basophils/100 WBC (Bld) 0.2 % Normal 0-1 [facility] Comment on above: Performed By: #### L 500.2500, L100.0100 ####[facility] [address] [place], [address] Eosinophils/100 WBC (Bld) 0.2 % Normal 0-5 [facility] Comment on above: Performed By: #### L 500.2500, L100.0100 ####[facility] [address] [place], [address] Erythrocyte distribution width (RBC) [Ratio] 13.9 % Normal 11.6-14.6 [facility] Comment on above: Performed By: #### L 500.2500, L100.0100 ####[facility] [address] [place], [address] Hematocrit (Bld) [Volume fraction] 34.2 % Low 37-47 [facility] Comment on above: Performed By: #### L 500.2500, L100.0100 ####[facility] [address] [place], [address] Hemoglobin (Bld) [Mass/Vol] 11.0 g/dL Low 12.0-15.0 [facility] Comment on above: Performed By: #### L 500.2500, L100.0100 ####[facility] [address] [place], [address] IG% 0.600 Normal 0.0-0.9 [facility] Comment on above: Result Comment: IG% - Immature Granulocytes (promyelocytes, myelocytes andmetamyelocytes) > 1% indicates that a LEFT SHIFT is Present. Performed By: #### L 500.2500, L100.0100 ####[facility] [address] [place], [address] Lymphocytes/100 WBC (Bld) 19.4 % Normal 19-41 [facility] Comment on above: Performed By: #### L 500.2500, L100.0100 ####[facility] [address] [place], [address] MCH (RBC) [Entitic mass] 27.0 pg Normal 27.0-32.0 [facility] Comment on above: Performed By: #### L 500.2500, L100.0100 ####[facility] [address] [place], [address] MCHC (RBC) [Mass/Vol] 32.2 g/dL Normal 32-36 [facility] Comment on above: Performed By: #### L 500.2500, L100.0100 ####[facility] [address] [place], [address] MCV (RBC) [Entitic vol] 83.8 fL Normal 81-99 [facility] Comment on above: Performed By: #### L 500.2500, L100.0100 ####[facility] [address] [place], [address] Monocytes/100 WBC (Bld) 6.2 % Normal 0-10 [facility] Comment on above: Performed By: #### L 500.2500, L100.0100 ####[facility] [address] [place], [address] Neutrophils/100 WBC (Bld) 73.4 % High 47-70 [facility] Comment on above: Performed By: #### L 500.2500, L100.0100 ####[facility] [address] [place], [address] Nucleated RBC (Bld) [#/Vol] 0 10*3/uL Normal 0-5 [facility] Comment on above: Performed By: #### L 500.2500, L100.0100 ####[facility] [address] [place], [address] Platelet mean volume (Bld) [Entitic vol] 9.8 fL Normal 6.2-12.0 [facility] Comment on above: Performed By: #### L 500.2500, L100.0100 ####[facility] [address] [place], [address] Platelets (Bld) [#/Vol] 308 10*3/uL Normal 150-450 [facility] Comment on above: Performed By: #### L 500.2500, L100.0100 ####[facility] [address] [place], [address] RBC (Bld) [#/Vol] 4.08 10*6/uL Low 4.2-5.4 [facility] Comment on above: Performed By: #### L 500.2500, L100.0100 ####[facility] [address] [place], [address] RDW SD 43.0 fl Normal 35.1-43.9 [facility] Comment on above: Performed By: #### L 500.2500, L100.0100 ####[facility] [address] [place], [address] WBC (Bld) [#/Vol] 17.6 10*3/uL High 4.4-11.0 [facility] Comment on above: Performed By: #### L 500.2500, L100.0100 ####[facility] [address] [place], [address] Abdomen/Pelvis W IV Cont ONL Yon 11-25-2024 Abdomen/Pelvis W IV Cont ONLY Normal [facility] Absolute lymphocyte countOrd ered By: Drew Hinson on 11-25-2024 Lymphocytes Auto (Unsp spec) [#/Vol] 3.09 10*3/uL 0.83-4.51 [facility] Absolute neutrophil countOrd ered By: Drew Hinson on 11-25-2024 Neutrophils (Bld) [#/Vol] 21.5 10*3/uL High 2.0-7.7 [facility] Acute Abdomen Inc Cheston Acute Abdomen Inc Chest Normal [facility] Amorphous sediment detection in urine sediment by light microscopyOrdered By: Drew Hinson on 11-25-2024 Amorphous sediment LM Ql (Urine sed) 2+ URATE [facility] Anion gap in Serum or Plasma Ordered By: Drew Hinson on 11-25-2024 Anion gap [Moles/Vol] 17 mmol/L High 5-15 [facility] Automated lymphocyte count a s percentage of total leukocytesOrdered By: Drew Hinson on 11-25-2024 Lymphocytes/100 WBC Auto (Unsp spec) 11.4 % Low 19-41 [facility] BUN/creatinine ratioOrdered By: Drew Hinson on 11-25-2024 Urea nitrogen/Creatinine [Mass ratio] 15.9 mg/mg 10- [facility] Basic Metabolic Profile (BMP )on 11-25-2024 BUN/CRE 15.9 RATIO Normal - [facility] Comment on above: Performed By: #### L 700.6800, L500.2500, L100.0100 ####[facility] [address] [place], [address] Calcium [Mass/Vol] 9.6 mg/dL Normal 7.6-11.0 [facility] Comment on above: Performed By: #### L 700.6800, L500.2500, L100.0100 ####[facility] [address] [place], [address] Chloride [Moles/Vol] 97 mmol/L Low 98-108 [facility] Comment on above: Performed By: #### L 700.6800, L500.2500, L100.0100 ####[facility] [address] [place], [address] CO2 [Moles/Vol] 21.3 mmol/L Normal 21.0-32.0 [facility] Comment on above: Performed By: #### L 700.6800, L500.2500, L100.0100 ####[facility] [address] [place], [address] Creatinine [Mass/Vol] 1.20 mg/dL Normal 0.70-1.20 [facility] Comment on above: Performed By: #### L 700.6800, L500.2500, L100.0100 ####[facility] [address] [place], [address] ECRCL 86.69 ml/min Normal 50-250 [facility] Comment on above: Performed By: #### L 700.6800, L500.2500, L100.0100 ####[facility] [address] [place], [address] GAP 17 High 5-15 [facility] Comment on above: Performed By: #### L 700.6800, L500.2500, L100.0100 ####[facility] [address] [place], [address] GFR/1.73 sq M.predicted among non-blacks MDRD (S/P/Bld) [Vol rate/Area] 62 mL/min/{1.73_m2} Normal >60 [facility] Comment on above: Result Comment: mL/m in/1.73m2 CKD-EPI Creatinine Equation (2020) Performed By: #### L 700.6800, L500.2500, L100.0100 ####[facility] [address] [place], [address] Glucose [Mass/Vol] 203 mg/dL High 70-99 [facility] Comment on above: Performed By: #### L 700.6800, L500.2500, L100.0100 ####[facility] [address] [place], [address] Potassium [Moles/Vol] 4.0 mmol/L Normal 3.3-5.1 [facility] Comment on above: Performed By: #### L 700.6800, L500.2500, L100.0100 ####[facility] [address] [place], [address] Sodium [Moles/Vol] 135 mmol/L Normal 133-145 [facility] Comment on above: Performed By: #### L 700.6800, L500.2500, L100.0100 ####[facility] [address] [place], [address] Urea nitrogen [Mass/Vol] 19 mg/dL Normal 4-19 [facility] Comment on above: Performed By: #### L 700.6800, L500.2500, L100.0100 ####[facility] [address] [place], [address] Basophil percentageOrdered B y: Drew Hinson on 11-25-2024 Basophils/100 WBC (Bld) 0.3 % 0-1 [facility] Bedside Glucoseon 11-25-2024 FINGERSTICK GLU 139 mg/dL High 74-106 [facility] Comment on above: Result Comment: BULL [place]AYOA OF PATIENT CARE PER NURSING PROTOCOL Performed By: #### L 501.080 ####[facility] [address] [place], [place], [address] Bilirubin Test strip Ql (U)O rdered By: Drew Hinson on 11-25-2024 Bilirubin Ql (U) 1 mg/dL High Negative [facility] Comment on above: COLOR OF URINE MAY A FFECT DIPSTICK RESULTS. Blood cultureOrdered By: Dwight Hinson on 11-25-2024 Bacteria identified Cx Nom (Bld) No growth in 5 days. [facility] Bacteria identified Cx Nom (Bld) No growth in 5 days. [facility] CBC W/Diff, Automatedon 05- PLT EST A Normal ADEQ [facility] Comment on above: Performed By: #### L 700.6800, L500.2500, L100.0100 ####[facility] [address] [place], [address] Carbon dioxide, total [Moles /volume] in Central venous bloodOrdered By: Drew Hinson on 11-25-2024 CO2 [Moles/Vol] 21.3 mmol/L 21.0-32.0 [facility] Chloride assayOrdered By: Steven Hinson on 11-25-2024 Chloride [Moles/Vol] 97 mmol/L Low 98-108 [facility] Consultation - Surgicalon Consultation - Surgical Normal [facility] Emergency Department Summary on 11-25-2024 Emergency Department Summary Normal [facility] Eosinophil percentageOrdered By: Drew Hinson on 11-25-2024 Eosinophils/100 WBC (Bld) 0.1 % 0-5 [facility] Erythrocyte distribution wid th ratioOrdered By: Drew Hinson on 11-25-2024 Erythrocyte distribution width (RBC) [Ratio] 14.2 % 11.6-14.6 [facility] Erythrocyte distribution wid th standard deviationOrdered By: Drew Hinson on 11-25-2024 Erythrocyte distribution width (RBC) [Ratio] 41.1 fl 35.1-43.9 [facility] Glomerular filtration rate ( GFR) estimation/1.73 sq m using serum, plasma, or whole bOrdered By: Drew Hinson on 11-25-2024 GFR/1.73 sq M.predicted among non-blacks MDRD (S/P/Bld) [Vol rate/Area] 62 mL/min/{1.73_m2} >60 [facility] Comment on above: mL/min/1.73m2 CKD-EP I Creatinine Equation (2020) H AND P Exam - Hospitaliston 11-25-2024 H&P Exam - Hospitalist Normal [facility] Hematocrit Auto (Bld) [Volum e fraction]Ordered By: Drew Hinson on 11-25-2024 Hematocrit (Bld) [Volume fraction] 42.3 % 37-47 [facility] Hemoglobin measurementOrdere d By: Drew Hinson on 11-25-2024 Hemoglobin (Bld) [Mass/Vol] 14.1 g/dL 12.0-15.0 [facility] Hyaline casts LM.LPF (Urine sed) [#/Area]Ordered By: Drew Hinson on 11-25-2024 Hyaline casts (Urine sed) [#/Area] 0 /[LPF] 0-5 [facility] Immature granulocytes/100 WB C Auto (Bld)Ordered By: Drew Hinson on 11-25-2024 Immature granulocytes/100 WBC (Bld) 0.700 % 0.0-0.9 [facility] Comment on above: IG% - Immature Granu locytes (promyelocytes, myelocytes and metamyelocytes) > 1% indicates that a LEFT SHIFT is Present. Ketones Test strip Ql (U)Ord ered By: Drew Hinson on 05-17-2025 Ketones Ql (U) 5 mg/dl High Negative [facility] Lactic Acidon 11-25-2024 Lactate [Moles/Vol] 1.5 mmol/L Normal 0.0-2.0 [facility] Comment on above: Order Comment: Y Performed By: #### M 200.1000, L503.6005 ####[facility] [address] [place], [address] Lactic acid measurementOrder ed By: Drew Hinson on 11-25-2024 Lactate [Moles/Vol] 1.5 mmol/L 0.0-2.0 [facility] MCV (mean corpuscular volume ) determinationOrdered By: Drew Hinson on 11-25-2024 MCV (RBC) [Entitic vol] 81.2 fL 81-99 [facility] Mean corpuscular hemoglobin (MCH) determinationOrdered By: Drew Hinson on 11-25-2024 MCH (RBC) [Entitic mass] 27.1 pg 27.0-32.0 [facility] Mean corpuscular hemoglobin concentration (MCHC) determinationOrdered By: Drew Hinson on 11-25-2024 MCHC (RBC) [Mass/Vol] 33.3 g/dL 32-36 [facility] Mean platelet volume determi nationOrdered By: Drew Hinson on 11-25-2024 Platelet mean volume (Bld) [Entitic vol] 9.4 fL 6.2-12.0 [facility] Microscopic analysis of urin e for red blood cells (RBC)Ordered By: Drew Hinson on 11-25-2024 Microscopic analysis of urine for red blood cells (RBC) 0-5 SEEN /hpf 0-5 [facility] Monocyte percentageOrdered B y: Drew Hinson on 11-25-2024 Monocytes/100 WBC (Bld) 8.0 % 0-10 [facility] Mucus LM Ql (Urine sed)Order ed By: Drew Hinson on 11-25-2024 Mucus Ql (Urine sed) 0 SEEN /hpf [facility] Neutrophil percentageOrdered By: Drew Hinson on 11-25-2024 Neutrophils/100 WBC (Bld) 79.5 % High 47-70 [facility] Nitrite Test strip Ql (U)Ord ered By: Drew Hinson on 11-25-2024 Nitrite Ql (U) Negative Negative [facility] Nucleated red blood cell per centageOrdered By: Drew Hinson on 11-25-2024 Nucleated RBC/100 WBC (Bld) [Ratio] 0 % 0-5 [facility] Platelet countOrdered By: Steven Hinson on 11-25-2024 Platelets (Bld) [#/Vol] 400 10*3/uL 150-450 [facility] Platelet estimateOrdered By: Drew Hinson on 11-25-2024 Platelets LM Ql (Bld) A ADEQ [facility] Potassium measurement (mass/ volume)Ordered By: Drew Hinson on 11-25-2024 Potassium (Unsp spec) [Mass/Vol] 4.0 mmol/L 3.3-5.1 [facility] ,Serum,hCG Quali.on 11-25-2024 HCG, SERUM QUAL Negative Normal [facility] Comment on above: Performed By: #### L 700.6800, L500.2500, L100.0100 ####[facility] [address] [place], [address] Protein Test strip Ql (U)Ord ered By: Drew Hinson on 11-25-2024 Protein Ql (U) 30 mg/dl High Negative [facility] RBC Auto (Bld) [#/Vol]Ordere d By: Drew Hinson on 11-25-2024 RBC (Bld) [#/Vol] 5.21 10*6/uL 4.2-5.4 [facility] Serum beta-hCG test, qualita tiveOrdered By: Drew Hinson on 11-25-2024 Beta HCG ( test) Ql Negative [facility] Serum creatinine measurement (mass/volume)Ordered By: Drew Hinson on 11-25-2024 Creatinine [Mass/Vol] 1.20 mg/dL 0.70-1.20 [facility] Serum glucose measurement (m ass/volume)Ordered By: Drew Hinson on 11-25-2024 Glucose [Mass/Vol] 203 mg/dL High 70-99 [facility] Serum or plasma calcium hussein urement (mass/volume)Ordered By: Drew Hinson on 11-25-2024 Calcium [Mass/Vol] 9.6 mg/dL 7.6-11.0 [facility] Serum or plasma urea nitroge n measurement (mass/volume)Ordered By: Drew Hinson on 11-25-2024 Urea nitrogen [Mass/Vol] 19 mg/dL 4-19 [facility] Sodium levelOrdered By: Drew Hinson on 11-25-2024 Sodium [Moles/Vol] 135 mmol/L 133-145 [facility] Squamous epithelial cells de tection in urine sediment by light microscopyOrdered By: Drew Hinson on 11-25-2024 Epithelial cells.squamous LM Ql (Urine sed) 0-5 SEEN /hpf -10 [facility] Urinalysis, Completeon 11-25 CAST,HYALINE 0-5 SEEN Normal 0-5 [facility] Comment on above: Order Comment: CLEAN CATCH Performed By: #### L 400.0001 ####[facility] [address] [place], [address] AMORPHOUS 2+ URATE Normal [facility] Comment on above: Order Comment: CLEAN CATCH Performed By: #### L 400.0001 ####[facility] [address] [place], [address] EPI,SQUAMOUS 0-5 SEEN Normal 5-10 [facility] Comment on above: Order Comment: CLEAN CATCH Performed By: #### L 400.0001 ####[facility] [address] [place], [address] RBC 0-5 SEEN Normal 0-5 [facility] Comment on above: Order Comment: CLEAN CATCH Performed By: #### L 400.0001 ####[facility] [address] [place], [address] WBC 0-5 SEEN Normal 0-5 [facility] Comment on above: Order Comment: CLEAN CATCH Performed By: #### L 400.0001 ####[facility] [address] [place], [address] BACTERIA 0 SEEN Normal None Seen [facility] Comment on above: Order Comment: CLEAN CATCH Performed By: #### L 400.0001 ####[facility] [address] [place], [address] Mucus Ql (Urine sed) 0 SEEN Normal [facility] Comment on above: Order Comment: CLEAN CATCH Performed By: #### L 400.0001 ####[facility] [address] [place], [address] Urine clarityOrdered By: Dwight Hinson on 11-25-2024 Clarity (U) Cloudy Clear [facility] Urine color determinationOrd ered By: Drew Hinson on 11-25-2024 Color (U) Yellow Yellow [facility] Urine glucose detectionOrder ed By: Drew Hinson on 11-25-2024 Glucose Ql (U) Normal mg/dl Normal [facility] Urine leukocyte esterase det ection by dipstickOrdered By: Drew Hinson on 11-25-2024 Leukocyte esterase Test strip Ql (U) Negative Negative [facility] Urine pHOrdered By: Drew castellanos on 11-25-2024 pH (U) 6.0 [pH] 5.0 - 8.0 [facility] Urine sediment bacteria coun t by microscopy (number/high power field)Ordered By: Drew Hinson on 11-25-2024 Bacteria LM.HPF (Urine sed) [#/Area] 0 /[HPF] None Seen [facility] Urine specific gravity measu rementOrdered By: Drew Hinson on 11-25-2024 Specific gravity (U) [Rel density] 1.025 1.002-1.030 [facility] Urine urobilinogen measureme ntOrdered By: Drew Hinson on 11-25-2024 Urobilinogen Ql (U) 1 mg/dl High Normal [facility] White blood cell (WBC) count Ordered By: Drew Hinson on 11-25-2024 WBC (Bld) [#/Vol] 27.0 10*3/uL High 4.4-11.0 [facility] White blood cell countOrdere d By: Drew Hinson on 11-25-2024 White blood cell count 0-5 SEEN /hpf 0-5 [facility] Arterial study reportOrdered By: Tony Dwyer on 10-25-2024 Noninvasive arteriosclerosis study report [facility] [address] [place] [address] Lower Ext Art Exam w/o Exercis 10/25/24 0847 MR#: [id number] Acct: [id number] Name: GHISLAINE GIVENS Rep #:[id number] : 1990 34 From: Tony Dwyer MD Attending Dr: Dr. Abdirizak Forrest DPM Status: REG CLI Ordering Dr: Abdirizak Forrest DPM Date: 10/25/24 Location: [facility] Sex: F C Admitted: Reason For Study [...] Dwyer MD CC: DPM Dr. Abdirizak Forrest; [facility] BOAT HOIST OPERATOR-C Amy Solorzano ~ Date Dictated: 10/25/24846 Date Transcribed: 10/25/242211 [employer] Worker: Signed [facility] Other Phone: Lower Ext Art Exam w/o Exerc rudy 10-25-2024 Lower Ext Art Exam w/o Exercis Normal [facility] Venous Duplex US - Tayo Extre mon 10-25-2024 Venous Duplex US - Tayo Extrem Normal [facility] Venous duplex ultrasound rep ortOrdered By: Tony Dwyer on 10-25-2024 US Vein [facility] [address] [place] [address] Venous Duplex US - Tayo Extrem 10/25/24 0806 MR#: [id number] Acct: [id number] Name: GHISLAINE GIVENS Rep #:[id number] : 1990 34 From: Tony Dwyer MD Attending Dr: Dr. Abdirizak Forrest, DPM Status: REG CLI Ordering Dr: Abdirizak Forrest DPPrisca Date: 10/25/24 Location: [facility] Sex: F C [...] competent and measures 0.21 x 0.23 INCOMPETENT market research associate noted 8 cm above medial cm. maleolus. [...] right proximal calf is incompetent. An incompetent market research associate vein is noted in the right calf, located 8 centimeters proximal to the right medial malleolus. Ordering Physician: Abdirizak Forrest Referring Physician: Amy Solorzano Performed By: Saima De La Torre RVT 10/25/242200 Date _ Tony Dwyer MD CC: DPM Dr. Abdirizak Forrest; [facility] BOAT HOIST OPERATOR-C Amy Solorzano ~ Date Dictated: 10/25/24805 Date Transcribed: 10/25/242200 [employer] Worker: Signed [facility] Other Phone: Absolute lymphocyte countOrd ered By: [facility] Amy Solorzano on 10-17-2024 Lymphocytes Auto (Unsp spec) [#/Vol] 3.16 10*3/uL 0.83-4.51 [facility] Absolute neutrophil countOrd ered By: [facility] Amy Solorzano on 10-17-2024 Neutrophils (Bld) [#/Vol] 6.6 10*3/uL 2.0-7.7 [facility] Albumin DL <= 20 mg/L (U) [M ass/Vol]Ordered By: [facility] Amy Solorzano on 10-17-2024 Urine Random Microalbumin < 12.0 mg/L NO RANGE EST. [facility] Anion gap in Serum or Plasma Ordered By: [facility] Amy Solorzano on 10-17-2024 Anion gap [Moles/Vol] 14 mmol/L 5-15 [facility] Automated lymphocyte count a s percentage of total leukocytesOrdered By: [facility] Amy Solrozano on 10-17-2024 Lymphocytes/100 WBC Auto (Unsp spec) 29.7 % 19-41 [facility] BUN/creatinine ratioOrdered By: [facility] Amy Solorzano on 10-17-2024 Urea nitrogen/Creatinine [Mass ratio] 14.4 mg/mg 10-20 [facility] Basophil percentageOrdered B y: [facility] Amy Solorzano on 10-17-2024 Basophils/100 WBC (Bld) 0.4 % 0-1 [facility] Bilirubin, totalOrdered By: [facility] Amy Solorzano on 10-17-2024 Bilirubin [Mass/Vol] 0.21 mg/dL 0.00-1.30 [facility] CBC W/Diff, Automatedon Absolute Lymph 3.16 X10 3/uL Normal 0.83-4.51 [facility] Comment on above: Performed By: #### L 501.9520, L500.4100, L500.4050, L100.0100, L506.1001, L502.0500 ####[facility] [address] [place], [address] Absolute Neut 6.6 X10 3/uL Normal 2.0-7.7 [facility] Comment on above: Performed By: #### L 501.9520, L500.4100, L500.4050, L100.0100, L506.1001, L502.0500 ####[facility] [address] [place], [address] Basophils/100 WBC (Bld) 0.4 % Normal 0-1 [facility] Comment on above: Performed By: #### L 501.9520, L500.4100, L500.4050, L100.0100, L506.1001, L502.0500 ####[facility] [address] [place], [address] Eosinophils/100 WBC (Bld) 0.7 % Normal 0-5 [facility] Comment on above: Performed By: #### L 501.9520, L500.4100, L500.4050, L100.0100, L506.1001, L502.0500 ####[facility] [address] [place], [address] Erythrocyte distribution width (RBC) [Ratio] 14.1 % Normal 11.6-14.6 [facility] Comment on above: Performed By: #### L 501.9520, L500.4100, L500.4050, L100.0100, L506.1001, L502.0500 ####[facility] [address] [place], [address] Hematocrit (Bld) [Volume fraction] 39.5 % Normal 37-47 [facility] Comment on above: Performed By: #### L 501.9520, L500.4100, L500.4050, L100.0100, L506.1001, L502.0500 ####[facility] [address] [place], [address] Hemoglobin (Bld) [Mass/Vol] 12.8 g/dL Normal 12.0-15.0 [facility] Comment on above: Performed By: #### L 501.9520, L500.4100, L500.4050, L100.0100, L506.1001, L502.0500 ####[facility] [address] [place], [address] IG% 1.000 High 0.0-0.9 [facility] Comment on above: Result Comment: IG% - Immature Granulocytes (promyelocytes, myelocytes andmetamyelocytes) > 1% indicates that a LEFT SHIFT is Present. Performed By: #### L 501.9520, L500.4100, L500.4050, L100.0100, L506.1001, L502.0500 ####[facility] [address] [place], [address] Lymphocytes/100 WBC (Bld) 29.7 % Normal 19-41 [facility] Comment on above: Performed By: #### L 501.9520, L500.4100, L500.4050, L100.0100, L506.1001, L502.0500 ####[facility] [address] [place], [address] MCH (RBC) [Entitic mass] 26.6 pg Low 27.0-32.0 [facility] Comment on above: Performed By: #### L 501.9520, L500.4100, L500.4050, L100.0100, L506.1001, L502.0500 ####[facility] [address] [place], [address] MCHC (RBC) [Mass/Vol] 32.4 g/dL Normal 32-36 [facility] Comment on above: Performed By: #### L 501.9520, L500.4100, L500.4050, L100.0100, L506.1001, L502.0500 ####[facility] [address] [place], [address] MCV (RBC) [Entitic vol] 82.1 fL Normal 81-99 [facility] Comment on above: Performed By: #### L 501.9520, L500.4100, L500.4050, L100.0100, L506.1001, L502.0500 ####[facility] [address] [place], [address] Monocytes/100 WBC (Bld) 6.0 % Normal 0-10 [facility] Comment on above: Performed By: #### L 501.9520, L500.4100, L500.4050, L100.0100, L506.1001, L502.0500 ####[facility] [address] [place], [address] Neutrophils/100 WBC (Bld) 62.2 % Normal 47-70 [facility] Comment on above: Performed By: #### L 501.9520, L500.4100, L500.4050, L100.0100, L506.1001, L502.0500 ####[facility] [address] [place], [address] Nucleated RBC (Bld) [#/Vol] 0 10*3/uL Normal 0-5 [facility] Comment on above: Performed By: #### L 501.9520, L500.4100, L500.4050, L100.0100, L506.1001, L502.0500 ####[facility] [address] [place], [address] Platelet mean volume (Bld) [Entitic vol] 9.7 fL Normal 6.2-12.0 [facility] Comment on above: Performed By: #### L 501.9520, L500.4100, L500.4050, L100.0100, L506.1001, L502.0500 ####[facility] [address] [place], [address] Platelets (Bld) [#/Vol] 332 10*3/uL Normal 150-450 [facility] Comment on above: Performed By: #### L 501.9520, L500.4100, L500.4050, L100.0100, L506.1001, L502.0500 ####[facility] [address] [place], [address] RBC (Bld) [#/Vol] 4.81 10*6/uL Normal 4.2-5.4 [facility] Comment on above: Performed By: #### L 501.9520, L500.4100, L500.4050, L100.0100, L506.1001, L502.0500 ####[facility] [address] [place], [address] RDW SD 41.9 fl Normal 35.1-43.9 [facility] Comment on above: Performed By: #### L 501.9520, L500.4100, L500.4050, L100.0100, L506.1001, L502.0500 ####[facility] [address] [place], [place], [address] WBC (Bld) [#/Vol] 10.6 10*3/uL Normal 4.4-11.0 [facility] Comment on above: Performed By: #### L 501.9520, L500.4100, L500.4050, L100.0100, L506.1001, L502.0500 ####[facility] [address] [place], [address] Calculated very low density lipoprotein (VLDL) cholesterol measurementOrdered By: [facility] Amy Solorzano on 10-17-2024 Calculated very low density lipoprotein (VLDL) cholesterol measurement 57 mg/dL High 5-40 [facility] VLDL Cholesterol 57 mg/dL High 5-40 [facility] Carbon dioxide, total [Moles /volume] in Central venous bloodOrdered By: [facility] Amy Solorzano on 10-17-2024 CO2 [Moles/Vol] 21.8 mmol/L 21.0-32.0 [facility] Chloride assayOrdered By: [facility] Amy Solorzano on 10-17-2024 Chloride [Moles/Vol] 99 mmol/L 98-108 [facility] Comprehensive Metabolic Prof ilon 10-17-2024 Albumin [Mass/Vol] 3.7 g/dL Normal 3.5-5.0 [facility] Comment on above: Performed By: #### L 501.9520, L500.4100, L500.4050, L100.0100, L506.1001, L502.0500 ####[facility] [address] [place], [address] Albumin/Globulin [Mass ratio] 0.9 {ratio} Normal 0.9-2.4 [facility] Comment on above: Performed By: #### L 501.9520, L500.4100, L500.4050, L100.0100, L506.1001, L502.0500 ####[facility] [address] [place], [address] ALK PHOS 93 U/L Normal 35-104 [facility] Comment on above: Performed By: #### L 501.9520, L500.4100, L500.4050, L100.0100, L506.1001, L502.0500 ####[facility] [address] [place], [address] ALT [Catalytic activity/Vol] 12 U/L Normal <=34 [facility] Comment on above: Performed By: #### L 501.9520, L500.4100, L500.4050, L100.0100, L506.1001, L502.0500 ####[facility] [address] [place], [address] AST [Catalytic activity/Vol] 18 U/L Normal <=31 [facility] Comment on above: Performed By: #### L 501.9520, L500.4100, L500.4050, L100.0100, L506.1001, L502.0500 ####[facility] [address] [place], [address] Bilirubin [Mass/Vol] 0.21 mg/dL Normal 0.00-1.30 [facility] Comment on above: Performed By: #### L 501.9520, L500.4100, L500.4050, L100.0100, L506.1001, L502.0500 ####[facility] [address] [place], [address] BUN/CRE 14.4 RATIO Normal 10-20 [facility] Comment on above: Performed By: #### L 501.9520, L500.4100, L500.4050, L100.0100, L506.1001, L502.0500 ####[facility] [address] [place], [address] Calcium [Mass/Vol] 9.2 mg/dL Normal 7.6-11.0 [facility] Comment on above: Performed By: #### L 501.9520, L500.4100, L500.4050, L100.0100, L506.1001, L502.0500 ####[facility] [address] [place], [address] Chloride [Moles/Vol] 99 mmol/L Normal 98-108 [facility] Comment on above: Performed By: #### L 501.9520, L500.4100, L500.4050, L100.0100, L506.1001, L502.0500 ####[facility] [address] [place], [address] CO2 [Moles/Vol] 21.8 mmol/L Normal 21.0-32.0 [facility] Comment on above: Performed By: #### L 501.9520, L500.4100, L500.4050, L100.0100, L506.1001, L502.0500 ####[facility] [address] [place], [address] Creatinine [Mass/Vol] 0.84 mg/dL Normal 0.70-1.20 [facility] Comment on above: Performed By: #### L 501.9520, L500.4100, L500.4050, L100.0100, L506.1001, L502.0500 ####[facility] [address] [place], [address] GAP 14 Normal 5-15 [facility] Comment on above: Performed By: #### L 501.9520, L500.4100, L500.4050, L100.0100, L506.1001, L502.0500 ####[facility] [address] [place], [address] GFR/1.73 sq M.predicted among non-blacks MDRD (S/P/Bld) [Vol rate/Area] 95 mL/min/{1.73_m2} Normal >60 [facility] Comment on above: Result Comment: mL/m in/1.73m2 CKD-EPI Creatinine Equation (2020) Performed By: #### L 501.9520, L500.4100, L500.4050, L100.0100, L506.1001, L502.0500 ####[facility] [address] [place], [address] Globulin (S) [Mass/Vol] 3.9 g/dL Normal 2.2-4.2 [facility] Comment on above: Performed By: #### L 501.9520, L500.4100, L500.4050, L100.0100, L506.1001, L502.0500 ####[facility] [address] [place], [address] Glucose [Mass/Vol] 233 mg/dL High 70-99 [facility] Comment on above: Performed By: #### L 501.9520, L500.4100, L500.4050, L100.0100, L506.1001, L502.0500 ####[facility] [address] [place], [address] Potassium [Moles/Vol] 4.6 mmol/L Normal 3.3-5.1 [facility] Comment on above: Performed By: #### L 501.9520, L500.4100, L500.4050, L100.0100, L506.1001, L502.0500 ####[facility] [address] [place], [address] Sodium [Moles/Vol] 135 mmol/L Normal 133-145 [facility] Comment on above: Performed By: #### L 501.9520, L500.4100, L500.4050, L100.0100, L506.1001, L502.0500 ####[facility] [address] [place], [place], [id number] T PROT 7.5 g/dL Normal 5.9-8.4 [facility] Comment on above: Performed By: #### L 501.9520, L500.4100, L500.4050, L100.0100, L506.1001, L502.0500 ####[facility] [address] [place], [place], [address] Urea nitrogen [Mass/Vol] 12 mg/dL Normal 4-19 [facility] Comment on above: Performed By: #### L 501.9520, L500.4100, L500.4050, L100.0100, L506.1001, L502.0500 ####[facility] [address] [place], [place], [address] Eosinophil percentageOrdered By: [facility] Amy Solorzano on 10-17-2024 Eosinophils/100 WBC (Bld) 0.7 % 0-5 [facility] Erythrocyte distribution wid th (RBC) [Ratio]Ordered By: [facility] Amy Solorzano on 10-17-2024 Erythrocyte distribution width (RBC) [Entitic vol] 41.9 fL 35.1-43.9 [facility] Erythrocyte distribution wid th ratioOrdered By: [facility] Amy Solorzano on 10-17-2024 Erythrocyte distribution width (RBC) [Ratio] 14.1 % 11.6-14.6 [facility] Erythrocyte distribution wid th standard deviationOrdered By: [facility] Amy Solorzano on 10-17-2024 Erythrocyte distribution width (RBC) [Ratio] 41.9 fl 35.1-43.9 [facility] GFR/1.73 sq M.predicted taryn g non-blacks MDRD (S/P/Bld) [Vol rate/Area]Ordered By: [facility] Amy Solorzano on 10-17-2024 Estimated GFR (MDRD) Non-Af Amer 95 >60 [facility] Comment on above: mL/min/1.73m2 CKD-EP I Creatinine Equation (2020) Glomerular filtration rate ( GFR) estimation/1.73 sq m using serum, plasma, or whole bOrdered By: [facility] Amy Solorzano on 10-17-2024 GFR/1.73 sq M.predicted among non-blacks MDRD (S/P/Bld) [Vol rate/Area] 95 mL/min/{1.73_m2} >60 [facility] Comment on above: mL/min/1.73m2 CKD-EP I Creatinine Equation (2020) Hematocrit Auto (Bld) [Volum e fraction]Ordered By: [facility] Amy Solorzano on 10-17-2024 Hematocrit (Bld) [Volume fraction] 39.5 % 37-47 [facility] Hemoglobin measurementOrdere d By: [facility] Amy Solorzano on 10-17-2024 Hemoglobin (Bld) [Mass/Vol] 12.8 g/dL 12.0-15.0 [facility] Immature granulocytes/100 WB C Auto (Bld)Ordered By: [facility] Amy Solorzano on 10-17-2024 Immature granulocytes/100 WBC (Bld) 1.000 % High 0.0-0.9 [facility] Comment on above: IG% - Immature Granu locytes (promyelocytes, myelocytes and metamyelocytes) > 1% indicates that a LEFT SHIFT is Present. LDL calc ser/plasOrdered By: [facility] Amy Solorzano on 10-17-2024 Cholesterol in LDL [Mass/Vol] 70 mg/dL [facility] Comment on above: Sntykcyohy=951-500 m g/dL & Higher Gnho=102 mg/dL or greater LDL Cholesterol, Calculated 70 mg/dL [facility] Comment on above: Mxonqeivfm=933-069 m g/dL & Higher Krwh=422 mg/dL or greater Laboratory - Chemistry and C hemistry - challengeOrdered By: [facility] Amy Solorzano on 10-17-2024 AST [Catalytic activity/Vol] 18 U/L <32 [facility] Lipid Profileon 10-17-2024 CHOL:HDL 4.44 Normal [facility] Comment on above: Performed By: #### L 501.9520, L500.4100, L500.4050, L100.0100, L506.1001, L502.0500 ####[facility] [address] [place], [address] Cholesterol [Mass/Vol] 164 mg/dL Normal <=200 [facility] Comment on above: Result Comment: Chol esterol level, Desirable <200 mg/dLBorderline high cholesterol 200-239 mg/dLHigh cholesterol >=240 mg/dLRecommendations of the NCEP Adult Treatment Panel for thefollowing risk-cutoff thresholds for the [place] Americanholy cross hospitalulation. Performed By: #### L 501.9520, L500.4100, L500.4050, L100.0100, L506.1001, L502.0500 ####[facility] [address] [place], [address] Cholesterol in HDL [Mass/Vol] 37 mg/dL Low [facility] Comment on above: Result Comment: Lupe onal Cholesterol Education Program (NCEP) guidelines:<40 mg/dL: Low HDL-cholesterol (major risk factor for CHD)>= 60 mg/dL: High HDL-cholesterol (negative risk factor forCHD)HDL-cholesterol is affected by a number of factors, e.g.smoking, exercise, hormones, sex and age. Performed By: #### L 501.9520, L500.4100, L500.4050, L100.0100, L506.1001, L502.0500 ####[facility] [address] [place], [address] Cholesterol in LDL [Mass/Vol] 70 mg/dL Normal [facility] Comment on above: Result Comment: Bord cwvtew=147-997 mg/dL Higher Rqii=668 mg/dL or greater Performed By: #### L 501.9520, L500.4100, L500.4050, L100.0100, L506.1001, L502.0500 ####[facility] [address] [place], [address] Cholesterol in VLDL [Mass/Vol] 57 mg/dL High 5-40 [facility] Comment on above: Performed By: #### L 501.9520, L500.4100, L500.4050, L100.0100, L506.1001, L502.0500 ####[facility] [address] [place], [place], [address] Triglyceride [Mass/Vol] 287 mg/dL High [facility] Comment on above: Result Comment: The drugs N-Acetylcysteine and Metamizole may falselydepress this assay.Normal range: <150 mg/dLBorderline High: 150-199 mg/dLHigh: 200-499 mg/dLVery High: >500 mg/dL Performed By: #### L 501.9520, L500.4100, L500.4050, L100.0100, L506.1001, L502.0500 ####[facility] [address] [facility] [place], [place], [id number] Lymphocytes Auto (Unsp spec) [#/Vol]Ordered By: [facility] Amy Solorzano on 10-17-2024 Lymphocytes (Bld) [#/Vol] 3.16 10*3/uL 0.83-4.51 [facility] Lymphocytes/100 WBC Auto (Un sp spec)Ordered By: [facility] Amy Solorzano on 10-17-2024 Lymphocytes/100 WBC (Bld) 29.7 % 19-41 [facility] MCV (mean corpuscular volume ) determinationOrdered By: [facility] Amy Solorzano on 10-17-2024 MCV (RBC) [Entitic vol] 82.1 fL 81-99 [facility] Mean corpuscular hemoglobin (MCH) determinationOrdered By: [facility] Amy Solorzano on 10-17-2024 MCH (RBC) [Entitic mass] 26.6 pg Low 27.0-32.0 [facility] Mean corpuscular hemoglobin concentration (MCHC) determinationOrdered By: [facility] Amy Solorzano on 10-17-2024 MCHC (RBC) [Mass/Vol] 32.4 g/dL 32-36 [facility] Mean platelet volume determi nationOrdered By: [facility] Amy Solorzano on 10-17-2024 Platelet mean volume (Bld) [Entitic vol] 9.7 fL 6.2-12.0 [facility] Microalbumin,Random Urineon 10-17-2024 MICROALBUMIN,UR < 12.0 Normal NO RANGE EST. [facility] Comment on above: Performed By: #### L 501.9520, L500.4100, L500.4050, L100.0100, L506.1001, L502.0500 ####[facility] [address] [place], [address] Monocyte percentageOrdered B y: [facility] Amy Solorzano on 10-17-2024 Monocytes/100 WBC (Bld) 6.0 % 0-10 [facility] Neutrophil percentageOrdered By: [facility] Amy Solorzano on 10-17-2024 Neutrophils/100 WBC (Bld) 62.2 % 47-70 [facility] No Panel InformationOrdered By: [facility] Amy Solorzano on 10-17-2024 18 U/L <32 [facility] Nucleated red blood cell per centageOrdered By: [facility] Amy Solorzano on 10-17-2024 Nucleated RBC/100 WBC (Bld) [Ratio] 0 % 0-5 [facility] Platelet countOrdered By: [facility] Amy Solorzano on 10-17-2024 Platelets (Bld) [#/Vol] 332 10*3/uL 150-450 [facility] Potassium (Unsp spec) [Mass/ Vol]Ordered By: [facility] Amy Solorzano on 10-17-2024 Potassium [Moles/Vol] 4.6 mmol/L 3.3-5.1 [facility] Potassium measurement (mass/ volume)Ordered By: [facility] Amy Solorzano on 10-17-2024 Potassium (Unsp spec) [Mass/Vol] 4.6 mmol/L 3.3-5.1 [facility] RBC Auto (Bld) [#/Vol]Ordere d By: [facility] Amy Solorzano on 10-17-2024 RBC (Bld) [#/Vol] 4.81 10*6/uL 4.2-5.4 [facility] Screening total cholesterol/ high density lipoprotein (HDL) cholesterol ratioOrdered By: [facility] Amy Solorzano on 10-17-2024 Cholesterol.total/Breonna sterol in HDL [Mass ratio] 4.44 {ratio} [facility] Serum creatinine measurement (mass/volume)Ordered By: [facility] Amy Solozrano on 10-17-2024 Creatinine [Mass/Vol] 0.84 mg/dL 0.70-1.20 [facility] Serum globulin measurementOr dered By: [facility] Amy Solorzano on 10-17-2024 Globulin (S) [Mass/Vol] 3.9 g/dL 2.2-4.2 [facility] Serum glucose measurement (m ass/volume)Ordered By: [facility] Amy Solorzano on 10-17-2024 Glucose [Mass/Vol] 233 mg/dL High 70-99 [facility] Serum or plasma alanine ojrdan otransferase (ALT) measurementOrdered By: [facility] Amy Solorzano on 10-17-2024 ALT [Catalytic activity/Vol] 12 U/L <35 [facility] Serum or plasma albumin hussein urement (mass/volume)Ordered By: [facility] Amy Solorzano on 10-17-2024 Albumin [Mass/Vol] 3.7 g/dL 3.5-5.0 [facility] Serum or plasma albumin/glob ulin mass ratioOrdered By: [facility] Amy Solorzano on 10-17-2024 Albumin/Globulin [Mass ratio] 0.9 {ratio} 0.9-2.4 [facility] Serum or plasma alkaline bradley sphatase measurementOrdered By: [facility] Amy Solorzano on 10-17-2024 ALP [Catalytic activity/Vol] 93 U/L 35-104 [facility] Serum or plasma calcium hussein urement (mass/volume)Ordered By: [facility] Amy Solorzano on 10-17-2024 Calcium [Mass/Vol] 9.2 mg/dL 7.6-11.0 [facility] Serum or plasma cholesterol in HDL measurement (mass/volume)Ordered By: [facility] Amy Solorzano on 10-17-2024 Cholesterol in HDL [Mass/Vol] 37 mg/dL Low >40 [facility] Comment on above: National Cholesterol Education Program (NCEP) guidelines:<40 mg/dL: Low HDL-cholesterol (major risk factor for CHD)>= 60 mg/dL: High HDL-cholesterol (negative risk factor for CHD)HDL-cholesterol is affected by a number of factors, e.g. smoking, exercise, hormones, sex and age. Serum or plasma cholesterol measurement (mass/volume)Ordered By: [facility] Amy Solorzano on 10-17-2024 Cholesterol [Mass/Vol] 164 mg/dL <201 [facility] Comment on above: Cholesterol level, D esirable <200 mg/dLBorderline high cholesterol 200-239 mg/dLHigh cholesterol >=240 mg/dLRecommendations of the NCEP Adult Treatment Panel for the following risk-cutoff thresholds for the [place] population. Serum or plasma urea nitroge n measurement (mass/volume)Ordered By: [facility] Amy Solorzano on 10-17-2024 Urea nitrogen [Mass/Vol] 12 mg/dL 4-19 [facility] Sodium levelOrdered By: [facility] Center[facility]my[facility] on 10-17-2024 Sodium [Moles/Vol] 135 mmol/L 133-145 [facility] TSH DL <= 0.005 mIU/L QnOrde red By: [facility] on 10-17-2024 Thyroid Stimulating Hormone (TSH) 1.180 uIU/mL 0.300-4.200 [facility] TSH Qn 1.180 uIU/mL 0.300-4.200 [facility] Thyroid Stim Hormone (TSH)on 10-17-2024 TSH 1.180 uIU/mL Normal 0.300-4.200 [facility] Comment on above: Performed By: #### L [id number], L500.4100, L500.4050, L100.0100, L506.1001, L502.0500 ####[facility] [address] [place], [place], [id number] Total proteinOrdered By: [facility] Amy Solorzano on 10-17-2024 Protein [Mass/Vol] 7.5 g/dL 5.9-8.4 [facility] Triglycerides measurementOrd ered By: [facility] Amy Solorzano on 10-17-2024 Triglyceride [Mass/Vol] 287 mg/dL High <199 [facility] Comment on above: The drugs N-Acetylcy steine and Metamizole may falsely depress this assay. Normal range: <150 mg/dLBorderline High: 150-199 mg/dLHigh: 200-499 mg/dLVery High: >500 mg/dL Urine albumin measurement [facility] detection limit of 20 mg/L or less (mass/volume)Ordered By: [facility] Amy Solorzano on 10-17-2024 Albumin DL <= 20 mg/L (U) [Mass/Vol] < 12.0 mg/L NO RANGE EST. [facility] Vitamin D, 25-hydroxyOrdered By: [facility] Amy Solorzano on 10-17-2024 Vitamin D 25-Hydroxy 10.7 ng/mL Low 30-100 [facility] Comment on above: Vitamin D StatusDefi ciency: <20 ng/mL (50nmol/L)Insufficiency: 20-30 ng/mL (50-75 nmol/L)Sufficiency: 30-100 ng/mL (75-250 nmol/L)Toxicity: >100 ng/mL (>250 nmol/L) Vitamin D,25 Hydroxyon 10-17 Vitamin D 25-OH 10.7 ng/mL Low 30-100 [facility] Comment on above: Result Comment: Claudia min D StatusDeficiency: <20 ng/mL (50nmol/L)Insufficiency: 20-30 ng/mL (50-75 nmol/L)Sufficiency: 30-100 ng/mL (75-250 nmol/L)Toxicity: >100 ng/mL (>250 nmol/L) Performed By: #### L 501.9520, L500.4100, L500.4050, L100.0100, L506.1001, L502.0500 ####[facility] [address] [place], [address] White blood cell (WBC) count Ordered By: [facility] Amy Solorzano on 10-17-2024 WBC (Bld) [#/Vol] 10.6 10*3/uL 4.4-11.0 [facility] CNOVon 07-03-2024 CNOV Office Visit ([facility]WSTR ) GHISLAINE GIVENS ([id number]) 1990 F U[place] Date Time Provider Department 07/03/24 1:00 PM IRAIS HANNA [facility] During your visit today, we recorded the following information about you: Temperature Pulse Respiration Blood pressure 97 degrees 104/minute 16/minute 122/90 Weight Last Period 115.9 kg 06/20/24 Irais Hanna PA 07/03/2024 1:13 PM Signed This note was created using BusyFlow. Subjective Ghislaine Givens is a 34 year [...] (HCC) 2007 Depression Diabetes mellitus ([facility]) Elevated BP 04/28/2013 Insomnia PAST [...] a diabeti (more content not included)... Normal [facility] XR CHEST 2V FRONTAL/LATon XR CHEST [...] Low lung volumes. No acute radiographic abnormality. [employer] Worker: OLGA Transcribe Date/Time: Jul 03 2024 1:07P Dictated by : THANIA ROSS DO This examination was interpreted and the report reviewed and electronically signed by: THANIA ROSS DO on Jul 03 2024 1:08PM EST [id number] Normal [facility] XR Chest PA and Lateralon IMPRESSION: Low lung volumes. No acute radiographic abnormality. [employer] Worker: OLGA Transcribe Date/Time: Jul 03 2024 1:07P [...] soft tissues: Unremarkable. DIVISION OF RADIOLOGY Provider, [facility] - 07/03/2024 * * *Final [...] Low lung volumes. No acute radiographic abnormality. [employer] Worker: OLGA Transcribe Date/Time: Jul 03 2024 1:07P Dictated by : THANIA ROSS DO This examination was interpreted and the report reviewed and electronically signed by: THANIA ROSS DO on Jul 03 2024 1:08PM [facility] Radiology Study observation (narrative) Melissa gupta [facility] XR Chest PA and LateralOrder ed By: [facility] Provider on 07-03-2024 [facility] CNOVon 06-26-2024 CNOV Office Visit ([facility]WSTR ) GHISLAINE GIVENS ([id number]) 1990 F UPA Date Time Provider Department 06/26/24 10:30 AM FRANTZ AREVALO [facility] During your visit today, we recorded the following information about you: Temperature Pulse Respiration Blood pressure 97.4 degrees 117/minute 18/minute 122/78 Weight 115.7 kg Frantz Arevalo PA-C 06/26/2024 11:03 AM Signed This note was created using BusyFlow. 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 Normal [facility] CBC W/Diff, Automatedon 10-1 Absolute Lymph 4.36 X10 3/uL Normal 0.83-4.51 [facility] Comment on above: Performed By: #### L 100.0100, L502.0500, L501.9520, L500.4050, L500.4100 ####[facility] [address] [place], [place], [id number] Absolute Neut 7.1 X10 3/uL Normal 2.0-7.7 [facility] Comment on above: Performed By: #### L 100.0100, L502.0500, L501.9520, L500.4050, L500.4100 ####[facility] [address] [place], [address] Basophils/100 WBC (Bld) 0.6 % Normal 0-1 [facility] Comment on above: Performed By: #### L 100.0100, L502.0500, L501.9520, L500.4050, L500.4100 ####[facility] [address] [place], [address] Eosinophils/100 WBC (Bld) 1.3 % Normal 0-5 [facility] Comment on above: Performed By: #### L 100.0100, L502.0500, L501.9520, L500.4050, L500.4100 ####[facility] [address] [place], [address] Erythrocyte distribution width (RBC) [Ratio] 13.6 % Normal 11.6-14.6 [facility] Comment on above: Performed By: #### L 100.0100, L502.0500, L501.9520, L500.4050, L500.4100 ####[facility] [address] [place], [address] Hematocrit (Bld) [Volume fraction] 41.6 % Normal 37-47 [facility] Comment on above: Performed By: #### L 100.0100, L502.0500, L501.9520, L500.4050, L500.4100 ####[facility] [address] [place], [address] Hemoglobin (Bld) [Mass/Vol] 13.1 g/dL Normal 12.0-15.0 [facility] Comment on above: Performed By: #### L 100.0100, L502.0500, L501.9520, L500.4050, L500.4100 ####[facility] [address] [place], [address] IG% 1.300 High 0.0-0.9 [facility] Comment on above: Result Comment: IG% - Immature Granulocytes (promyelocytes, myelocytes andmetamyelocytes) > 1% indicates that a LEFT SHIFT is Present. Performed By: #### L 100.0100, L502.0500, L501.9520, L500.4050, L500.4100 ####[facility] [address] [place], [address] Lymphocytes/100 WBC (Bld) 34.7 % Normal 19-41 [facility] Comment on above: Performed By: #### L 100.0100, L502.0500, L501.9520, L500.4050, L500.4100 ####[facility] [address] [place], [address] MCH (RBC) [Entitic mass] 26.3 pg Low 27.0-32.0 [facility] Comment on above: Performed By: #### L 100.0100, L502.0500, L501.9520, L500.4050, L500.4100 ####[facility] [address] [place], [address] MCHC (RBC) [Mass/Vol] 31.5 g/dL Low 32-36 [facility] Comment on above: Performed By: #### L 100.0100, L502.0500, L501.9520, L500.4050, L500.4100 ####[facility] [address] [place], [address] MCV (RBC) [Entitic vol] 83.5 fL Normal 81-99 [facility] Comment on above: Performed By: #### L 100.0100, L502.0500, L501.9520, L500.4050, L500.4100 ####[facility] [address] [place], [address] Monocytes/100 WBC (Bld) 5.4 % Normal 0-10 [facility] Comment on above: Performed By: #### L 100.0100, L502.0500, L501.9520, L500.4050, L500.4100 ####[facility] [address] [place], [address] Neutrophils/100 WBC (Bld) 56.7 % Normal 47-70 [facility] Comment on above: Performed By: #### L 100.0100, L502.0500, L501.9520, L500.4050, L500.4100 ####[facility] [address] [place], [address] Nucleated RBC (Bld) [#/Vol] 0 10*3/uL Normal 0-5 [facility] Comment on above: Performed By: #### L 100.0100, L502.0500, L501.9520, L500.4050, L500.4100 ####[facility] [address] [place], [address] Platelet mean volume (Bld) [Entitic vol] 9.4 fL Normal 6.2-12.0 [facility] Comment on above: Performed By: #### L 100.0100, L502.0500, L501.9520, L500.4050, L500.4100 ####[facility] [address] [place], [address] Platelets (Bld) [#/Vol] 368 10*3/uL Normal 150-450 [facility] Comment on above: Performed By: #### L 100.0100, L502.0500, L501.9520, L500.4050, L500.4100 ####[facility] [address] [place], [address] RBC (Bld) [#/Vol] 4.98 10*6/uL Normal 4.2-5.4 [facility] Comment on above: Performed By: #### L 100.0100, L502.0500, L501.9520, L500.4050, L500.4100 ####[facility] [address] [place], [address] RDW SD 41.3 fl Normal 35.1-43.9 [facility] Comment on above: Performed By: #### L 100.0100, L502.0500, L501.9520, L500.4050, L500.4100 ####[facility] [address] [place], [address] WBC (Bld) [#/Vol] 12.6 10*3/uL High 4.4-11.0 [facility] Comment on above: Performed By: #### L 100.0100, L502.0500, L501.9520, L500.4050, L500.4100 ####[facility] [address] [place], [address] Comprehensive Metabolic [facility] 04-25-2024 Albumin [Mass/Vol] 3.3 g/dL Normal 3.2-5.0 [facility] Comment on above: Performed By: #### L 100.0100, L502.0500, L501.9520, L500.4050, L500.4100 ####[facility] [address] [place], [address] Albumin/Globulin [Mass ratio] 0.6 {ratio} Low 0.9-2.4 [facility] Comment on above: Performed By: #### L 100.0100, L502.0500, L501.9520, L500.4050, L500.4100 ####[facility] [address] [place], [address] ALK P 89 U/L Normal 45-117 [facility] Comment on above: Performed By: #### L 100.0100, L502.0500, L501.9520, L500.4050, L500.4100 ####[facility] [address] [place], [address] ALT [Catalytic activity/Vol] 24 U/L Normal 13-56 [facility] Comment on above: Performed By: #### L 100.0100, L502.0500, L501.9520, L500.4050, L500.4100 ####[facility] [address] [place], [address] AST [Catalytic activity/Vol] 9 U/L Low 15-37 [facility] Comment on above: Performed By: #### L 100.0100, L502.0500, L501.9520, L500.4050, L500.4100 ####[facility] [address] [place], [address] Bilirubin [Mass/Vol] 0.30 mg/dL Normal 0.20-1.00 [facility] Comment on above: Result Comment: For patients on eltrombopag therapy, use of Dimension Harvest TBIL is not recommended. Performed By: #### L 100.0100, L502.0500, L501.9520, L500.4050, L500.4100 ####[facility] [address] [place], [address] BUN/CRE 13.5 RATIO Normal 10-20 [facility] Comment on above: Performed By: #### L 100.0100, L502.0500, L501.9520, L500.4050, L500.4100 ####[facility] [address] [place], [address] CA,Total 9.1 mg/dL Normal 8.5-10.1 [facility] Comment on above: Performed By: #### L 100.0100, L502.0500, L501.9520, L500.4050, L500.4100 ####[facility] [address] [place], [address] Chloride [Moles/Vol] 108 mmol/L High 98-107 [facility] Comment on above: Performed By: #### L 100.0100, L502.0500, L501.9520, L500.4050, L500.4100 ####[facility] [address] [place], [address] CO2 [Moles/Vol] 23.0 mmol/L Normal 21.0-32.0 [facility] Comment on above: Performed By: #### L 100.0100, L502.0500, L501.9520, L500.4050, L500.4100 ####[facility] [address] [place], [address] Creatinine [Mass/Vol] 0.89 mg/dL Normal 0.55-1.02 [facility] Comment on above: Result Comment: The validity of the calculated GFR GFRAA in patients over70 years has not been determined. Clinical correlation isessential. Performed By: #### L 100.0100, L502.0500, L501.9520, L500.4050, L500.4100 ####[facility] [address] [place], [address] EST GFR - AA 95 mL/min Normal >60 [facility] Comment on above: Result Comment: Afri can Gambian GFR Calc Performed By: #### L 100.0100, L502.0500, L501.9520, L500.4050, L500.4100 ####[facility] [address] [place], [address] GAP 7 Normal 5-15 [facility] Comment on above: Performed By: #### L 100.0100, L502.0500, L501.9520, L500.4050, L500.4100 ####[facility] [address] [place], [address] GFR/1.73 sq M.predicted among non-blacks MDRD (S/P/Bld) [Vol rate/Area] 78 mL/min/{1.73_m2} Normal >60 [facility] Comment on above: Result Comment: Non- GFR Calc Performed By: #### L 100.0100, L502.0500, L501.9520, L500.4050, L500.4100 ####[facility] [address] [place], [address] Globulin (S) [Mass/Vol] 5.2 g/dL High 2.2-4.2 [facility] Comment on above: Performed By: #### L 100.0100, L502.0500, L501.9520, L500.4050, L500.4100 ####[facility] [address] [place], [address] Glucose [Mass/Vol] 177 mg/dL High 74-106 [facility] Comment on above: Result Comment: Fast ing Glucose result greater than or equal to 126 mg/dLsuggests DIABETES MELLITUS per A.D.A. criteria. Performed By: #### L 100.0100, L502.0500, L501.9520, L500.4050, L500.4100 ####[facility] [address] [place], [address] Potassium [Moles/Vol] 4.2 mmol/L Normal 3.5-5.1 [facility] Comment on above: Performed By: #### L 100.0100, L502.0500, L501.9520, L500.4050, L500.4100 ####[facility] [address] [place], [address] Sodium [Moles/Vol] 137 mmol/L Normal 136-145 [facility] Comment on above: Performed By: #### L 100.0100, L502.0500, L501.9520, L500.4050, L500.4100 ####[facility] [address] [place], [address] T PROT 8.5 g/dL High 6.4-8.2 [facility] Comment on above: Performed By: #### L 100.0100, L502.0500, L501.9520, L500.4050, L500.4100 ####[facility] [address] [place], [address] Urea nitrogen [Mass/Vol] 12 mg/dL Normal 7-18 [facility] Comment on above: Performed By: #### L 100.0100, L502.0500, L501.9520, L500.4050, L500.4100 ####[facility] [address] [place], [address] Lipid Profileon 04-25-2024 Cholesterol [Mass/Vol] 209 mg/dL High 200 [facility] Comment on above: Result Comment: <200 mg/dL Desirable 200-240 mg/dL Borderline >240 mg/dL High Risk Performed By: #### L 100.0100, L502.0500, L501.9520, L500.4050, L500.4100 ####[facility] [address] [place], [address] Cholesterol in HDL [Mass/Vol] 37 mg/dL Low [facility] Comment on above: Result Comment: The drugs N-Acetylcysteine and Metamizole may falselydepress this assay. Reference Range HDL <40 mg/dL Low HDL Cholesterol HDL >or= 60 mg/dL High HDL Cholesterol Performed By: #### L 100.0100, L502.0500, L501.9520, L500.4050, L500.4100 ####[facility] [address] [place], [address] Cholesterol in LDL [Mass/Vol] 127 mg/dL Normal 0-130 [facility] Comment on above: Performed By: #### L 100.0100, L502.0500, L501.9520, L500.4050, L500.4100 ####[facility] [address] [place], [address] Cholesterol in VLDL [Mass/Vol] 45 mg/dL High 5-40 [facility] Comment on above: Performed By: #### L 100.0100, L502.0500, L501.9520, L500.4050, L500.4100 ####[facility] [address] [place], [address] Triglyceride [Mass/Vol] 227 mg/dL High [facility] Comment on above: Result Comment: The drugs N-Acetylcysteine and Metamizole may falselydepress this assay.Serum Triglycerides Reference Interval Normal <150 mg/dL Borderline high 150 - 199 mg/dL High 200 - 499 mg/dL Very High > or = 500 mg/dL Performed By: #### L 100.0100, L502.0500, L501.9520, L500.4050, L500.4100 ####[facility] [address] [place], [address] Microalbumin,Random Urineon 04-25-2024 MICROALBUMIN,UR 147.0 mg/L Normal NO RANGE EST. [facility] Comment on above: Performed By: #### L 100.0100, L502.0500, L501.9520, L500.4050, L500.4100 ####[facility] [address] [place], [address] Thyroid Stim Hormone (TSH)on 04-25-2024 TSH 0.825 uIU/mL Normal 0.358-3.740 [facility] Comment on above: Performed By: #### L 100.0100, L502.0500, L501.9520, L500.4050, L500.4100 ####[facility] [address] [place], [place], [address] Fungus cultureOrdered By: Neva Forrest on 07-23-2023 Fungus identified Cx Nom (Unsp spec) [facility] Fungus stainOrdered By: Jonas Forrest on 07-23-2023 Fungus identified Fungus stain Nom (Unsp spec) [facility] Glucose Glucometer (BldC) [M ass/Vol]Ordered By: Abdirizak Forrest on 07-23-2023 Glucose [Mass/Vol] 204 mg/dL 74-106 [facility] Comment on above: MANAGEMENT OF PATIEN T CARE PER NURSING PROTOCOL Laboratory - Chemistry and C hemistry - challengeOrdered By: Abdirahman Morton on 07-23-2023 HCG ( test) Ql (U) Negative [facility] Comment on above: Very dilute urine sp ecimens, as indicated by a low specificgravity, may not contain signs sales representative levels of hCG. If is still suspected, a first morning urinespecimen should be collected 48 hours later and tested. No Panel InformationOrdered By: Abdirahman Morton on 07-23-2023 Negative [facility] Laboratory - Chemistry and C hemistry - challengeOrdered By: Abdirahman Morton on 07-16-2023 Magnesium [Mass/Vol] 2.0 mg/dL 1.6-2.6 [facility] No Panel InformationOrdered By: Abdirahman Morton on 07-16-2023 2.0 mg/dL 1.6-2.6 [facility] 25(OH)D3 SerPl-mCncon 2023 25-hydroxyvitamin D3 [Mass/Vol] 9.5 ng/mL Low 31.0-80.0 [facility] Comment on above: Order Comment: Speci men Type: BLOOD SPECIMEN Ordering Facility: Sophy Gibbons [facility] Address: [address] [place] [address], [place] [address] Result Comment: Clas sification of 25 [place] Vitamin D status: Deficiency/Insufficiency: < or = 30 ng/ml. Sufficiency/Optimal Levels: 31-80 ng/mL Toxicity: > 100 ng/mL. Test performed by chemiluminescent immunoassay. Performed By: #### 1 989-3 #### [facility] CLIA [id number] [address] [place] [address] [place] CBC panel Auto (Bld)on 07-14 Erythrocyte distribution width (RBC) [Ratio] 13.2 % Normal 11.5-15.0 [facility] Comment on above: Order Comment: Speci men Type: BLOOD SPECIMEN Ordering Facility: [facility] Address: [address] [place] [address] Performed By: #### 5 8410-2 #### [facility] [place] [id number] [address] [place] [address] [place] Hematocrit (Bld) [Volume fraction] 41.9 % Normal 36.0-46.0 [facility] Comment on above: Order Comment: Speci men Type: BLOOD SPECIMEN Ordering Facility: [facility] Address: [address] [place] [address] Performed By: #### 5 8410-2 #### [facility] [place] [id number] [address] [place] [address] [place] Hemoglobin (Bld) [Mass/Vol] 12.8 g/dL Normal 11.5-15.5 [facility] Comment on above: Order Comment: Speci men Type: BLOOD SPECIMEN Ordering Facility: [facility] Address: [address] [place] [address] Performed By: #### 5 8410-2 #### [facility] [place] [id number] [address] [place] [address] [place] MCH (RBC) [Entitic mass] 26.1 pg Normal 26.0-34.0 [facility] Comment on above: Order Comment: Speci men Type: BLOOD SPECIMEN Ordering Facility: [facility] Address: [address] [place] [address] Performed By: #### 5 8410-2 #### [facility] CLIA [id number] [address] [place] [address] [place] MCHC (RBC) [Mass/Vol] 30.5 g/dL Normal 30.5-36.0 [facility] Comment on above: Order Comment: Speci men Type: BLOOD SPECIMEN Ordering Facility: [facility] Address: [address] [place] [address] Performed By: #### 5 8410-2 #### [facility] CLIA [id number] [address] [place] [address] [place] MCV (RBC) [Entitic vol] 85.3 fL Normal 80.0-100.0 [facility] Comment on above: Order Comment: Speci men Type: BLOOD SPECIMEN Ordering Facility: [facility] Address: [address] [place] [address] Performed By: #### 5 8410-2 #### [facility] CLIA [id number] [address] [place] [address] [place] Nucleated RBC (Bld) [#/Vol] 10*3/uL Normal <0.01 [facility] Comment on above: Order Comment: Speci men Type: BLOOD SPECIMEN Ordering Facility: [facility] Address: [address] [place] [address] Performed By: #### 5 8410-2 #### [facility] CLIA [id number] [facility] [place] [address] [place] Platelet mean volume (Bld) [Entitic vol] 10.0 fL Normal 9.0-12.7 [facility] Comment on above: Order Comment: Speci men Type: BLOOD SPECIMEN Ordering Facility: [facility] Address: [address] [place] [address] Performed By: #### 5 8410-2 #### [facility] CLIA [id number] [address] [id number] [address] [place] Platelets (Bld) [#/Vol] 417 10*3/uL High 150-400 [facility] Comment on above: Order Comment: Speci men Type: BLOOD SPECIMEN Ordering Facility: [facility] Address: [address] [place] [address] Performed By: #### 5 8410-2 #### [facility] CLIA [id number] [address] [place] [address] [place] RBC (Bld) [#/Vol] 4.91 10*6/uL Normal 3.90-5.20 [facility] Comment on above: Order Comment: Speci men Type: BLOOD SPECIMEN Ordering Facility: [facility] Address: [address] [place] [address] Performed By: #### 5 8410-2 #### [facility] CLIA [id number] [address] [place] [address] [place] WBC (Bld) [#/Vol] 7.59 10*3/uL Normal 3.70-11.00 [facility] Comment on above: Order Comment: Speci men Type: BLOOD SPECIMEN Ordering Facility: [facility] Address: [address] [place] [address] Performed By: #### 5 8410-2 #### [facility] CLIA [id number] [address] [place] [address] [place] Comprehensive metabolic 2000 panelon 07-14-2023 Albumin [Mass/Vol] 4.0 g/dL Normal 3.9-4.9 [facility] Comment on above: Order Comment: Speci men Type: BLOOD SPECIMEN Ordering Facility: [facility] Address: [address] [place] [address] Performed By: #### 3 016-3, 25281-5 #### [facility] CLIA [id number] [address] [place] [id number] [place] ALP [Catalytic activity/Vol] 106 U/L Normal 34-123 [facility] Comment on above: Order Comment: Speci men Type: BLOOD SPECIMEN Ordering Facility: [facility] Address: [address] [facility], [place] [address] Performed By: #### 3 016-3, #### [facility] CLIA [id number] [address] [place] [address] [place] ALT [Catalytic activity/Vol] 11 U/L Normal 7-38 [facility] Comment on above: Order Comment: Speci men Type: BLOOD SPECIMEN Ordering Facility: [facility] Address: [address] [place] [address], [place] [address] Performed By: #### 3 016-3, #### [facility] CLIA [id number] [address] [place] [address] [place] Anion gap [Moles/Vol] 14 mmol/L Normal 9-18 [facility] Comment on above: Order Comment: Speci men Type: BLOOD SPECIMEN Ordering Facility: [facility] Address: [address] [place] [address], [place], [place] [id number] Performed By: #### 3 016-3, #### [facility] CLIA [id number] [address] [place] [address] [place] AST [Catalytic activity/Vol] 13 U/L Normal 13-35 [facility] Comment on above: Order Comment: Speci men Type: BLOOD SPECIMEN Ordering Facility: [facility] Address: [address], [place] [address] Performed By: #### 3 016-3, 53949-6 #### [facility] CLIA [id number] [address] [place] [address] [place] Bilirubin [Mass/Vol] 0.3 mg/dL Normal 0.2-1.3 [facility] Comment on above: Order Comment: Speci men Type: BLOOD SPECIMEN Ordering Facility: [facility] Address: [address] [place] [address], [place] [address] Performed By: #### 3 -3, #### [facility] CLIA [id number] [address] [place] [address] [place] Calcium [Mass/Vol] 9.6 mg/dL Normal 8.5-10.2 [facility] Comment on above: Order Comment: Speci men Type: BLOOD SPECIMEN Ordering Facility: [facility] Address: [address] [place] [address] RD, [place] [address] Performed By: #### 3 3, #### [facility] CLIA [id number] [address] [place] [address] [place] Chloride [Moles/Vol] 101 mmol/L Normal 97-105 [facility] Comment on above: Order Comment: Speci men Type: BLOOD SPECIMEN Ordering Facility: [facility] Address: [address] [place] [address], [place] [address] Performed By: #### 3 3, #### [facility] CLIA [id number] [address] [place] [address] [place] CO2 [Moles/Vol] 23 mmol/L Normal 22-30 [facility] Comment on above: Order Comment: Speci men Type: BLOOD SPECIMEN Ordering Facility: [facility] Address: [address] [place] [address], [place] [address] Performed By: #### 3 3, #### [facility] CLIA [id number] [address] [id number] [place] Creatinine [Mass/Vol] 0.69 mg/dL Normal 0.58-0.96 [facility] Comment on above: Order Comment: Speci men Type: BLOOD SPECIMEN Ordering Facility: [facility] Address: [address] [place] [address], [place] [address] Performed By: #### 3 3, 67174-4 #### [facility] CLIA [id number] [address] [place] [address] [place] Creatinine and Glomerular filtration rate.predicted panel (S/P/Bld) 119 mL/min/1.73m??? Normal >=60 [facility] Comment on above: Order Comment: Mahogany vargas Type: BLOOD SPECIMEN Ordering Facility: [facility] Address: [address] [place] [address], [place] [address] Result Comment: Samreen mated Glomerular Filtration Rate [...] actual GFR. Performed By: #### 3 016-3, 82752-0 #### [facility] IA [id number] [address] [place] [address] [place] Glucose [Mass/Vol] 158 mg/dL High 74-99 [facility] Comment on above: Order Comment: Mahogany vargas Type: BLOOD SPECIMEN Ordering Facility: [facility] Address: [address] [place] [address], [place] [address] Result Comment: The [place] Diabetes Association (ADA) provides guidance for cutoff [...] Standards of Medical Care in Diabetes 2016, [place] Diabetes Association. Diabetes Care. 2016.39(Suppl 1). Performed By: #### 3 016-3, 52478-9 #### [facility] CLIA [id number] [address] [place] [address] [place] Potassium [Moles/Vol] 4.4 mmol/L Normal 3.7-5.1 [facility] Comment on above: Order Comment: Speci men Type: BLOOD SPECIMEN Ordering Facility: [facility] Address: [address] [place] [address], [place] [address] Performed By: #### 3 016-3, 64096-8 #### [facility] CLIA [id number] [address] [place] [address] [place] Protein [Mass/Vol] 7.5 g/dL Normal 6.3-8.0 [facility] Comment on above: Order Comment: Speci men Type: BLOOD SPECIMEN Ordering Facility: [facility] Address: [address] [place] [address], [place] [address] Performed By: #### 3 016-3, 36219-4 #### [facility] CLIA [id number] [address] [place] [address] [place] Sodium [Moles/Vol] 138 mmol/L Normal 136-144 [facility] Comment on above: Order Comment: Speci men Type: BLOOD SPECIMEN Ordering Facility: [facility] Address: [address] [place] [address], [place] [address] Performed By: #### 3 016-3, 49340-0 #### [facility] CLIA [id number] [address] [place] [address] [place] Urea nitrogen [Mass/Vol] 9 mg/dL Normal 7-21 [facility] Comment on above: Order Comment: Speci men Type: BLOOD SPECIMEN Ordering Facility: [facility] Address: [address] [place] [address], [place] [address] Performed By: #### 3 016-3, 04335-9 #### [facility] CLIA [id number] [address] [id number] [place] HbA1c (Bld)on 07-14-2023 Average glucose Estimated from glycated hemoglobin (Bld) [Mass/Vol] 163 mg/dL Normal [facility] Comment on above: Order Comment: Mahogany vargas Type: BLOOD SPECIMEN Ordering Facility: [facility] Address: [address] [place] [address] Result Comment: eAG: (Estimated average glucose) is a calculated value from HgbA1c and is signs sales representative of the average blood glucose level in the last 2-3 month period. Performed By: #### 5 5454-3 #### [facility] CLIA [id number] [address] [place] [address] [place] HbA1c (Bld) [Mass fraction] 7.3 % High 4.3-5.6 [facility] Comment on above: Order Comment: Mahogany vargas Type: BLOOD SPECIMEN Ordering Facility: [facility] Address: [address] [place] [address] Result Comment: [place] Diabetes Association guidelines indicate that patients with HgbA1c in the range 5.7-6.4% are at increased risk for development of diabetes, and intervention by lifestyle modification may be beneficial. HgbA1c greater or equal to 6.5% is considered diagnostic of diabetes. Performed By: #### 5 5454-3 #### [facility] CLIA [id number] [address] [place] [address] [place] TSH SerPl-aCncon 07-14-2023 TSH Qn 0.660 m[IU]/L Normal 0.270-4.200 [facility] Comment on above: Order Comment: Mahogany vargas Type: BLOOD SPECIMEN Ordering Facility: [facility] Address: [address] [place] [address] Result Comment: If t he patient is , TSH reference range varies by gestational period: First Trimester (weeks 9-12): 0.180-2.990 mIU/L Second Trimester: 0.110-3.980 mIU/L Third Trimester: 0.480-4.710 mIU/L Francois Matthews et al. A Practical Approach for the Verifications and Determination of Site- and Trimester-Specific Reference Intervals for Thyroid Function tests in . Thyroid, 2019:29:3:412-420. Emeka Farrar, et al. 2017 Guidelines of the [place] Thyroid Association for the Diagnosis and Management of Thyroid Disease during and the . Thyroid, 2017:27:3:315-389. Performed By: #### 3 016-3, 05088-4 #### [facility] CLIA [id number] [address] [place] [address] STATES [place] [facility] Absolute lymphocyte countOrd ered By: Willie Dhillon on 07-12-2023 Lymphocytes Auto (Unsp spec) [#/Vol] 4.46 10*3/uL 0.83-4.51 [facility] Basophil percentageOrdered B y: Willie Dhillon on 07-12-2023 Basophil percentage 5-10 SEEN /hpf 0-5 [facility] Basophil percentage 177 mg/dL 74-106 [facility] Basophil percentage 9.0 g/dL 6.4-8.2 [facility] Basophil percentage 0.60 mg/dL 0.20-1.00 [facility] Basophil percentage 136 mmol/L 136-145 [facility] Basophil percentage 4.2 mmol/L 3.5-5.1 [facility] Basophil percentage 100 mmol/L 98-107 [facility] Basophils (Bld) [#/Vol] 10.5 10*3/uL 4.4-11.0 [facility] Basophils (Bld) [#/Vol] 5.4 10*3/uL 2.0-7.7 [facility] Basophils/100 WBC (Bld) 51.3 % 47-70 [facility] Basophils/100 WBC (Bld) 0.3 % 0-5 [facility] Basophils/100 WBC (Bld) 0.4 % 0-1 [facility] Beta hCG serum qualOrdered B y: Willie Dhillon on 07-12-2023 Beta HCG ( test) Ql Negative [facility] Bilirubin Test strip Ql (U)O rdered By: Willie Dhillon on 07-12-2023 Bilirubin Ql (U) 1 mg/dL Negative [facility] Blood erythrocytes count (nu mber/volume)Ordered By: Willie Dhillon on 07-12-2023 RBC (Bld) [#/Vol] 5.20 10*6/uL 4.2-5.4 [facility] Blood hemoglobin measurement (mass/volume)Ordered By: Willie Dhillon on 07-12-2023 Hemoglobin (Bld) [Mass/Vol] 13.6 g/dL 12.0-15.0 [facility] Blood lymphocytes/100 leukoc ytesOrdered By: Willie Dhillon on 07-12-2023 Lymphocytes/100 WBC (Bld) 42.6 % 19-41 [facility] Blood monocytes/100 leukocyt esOrdered By: Willie Dhillon on 07-12-2023 Monocytes/100 WBC (Bld) 5.2 % 0-10 [facility] Blood platelet mean volumeOr dered By: Willie Dhillon on 07-12-2023 Platelet mean volume (Bld) [Entitic vol] 9.2 fL 6.2-12.0 [facility] Determination of erythrocyte mean corpuscular volume (MCV)Ordered By: Willie Dhillon on 07-12-2023 MCV (RBC) [Entitic vol] 82.7 fL 81-99 [facility] Hematocrit Auto (Bld) [Volum e fraction]Ordered By: Willie Dhillon on 07-12-2023 Hematocrit (Bld) [Volume fraction] 43.0 % 37-47 [facility] Ketones Test strip Ql (U)Ord ered By: Willie Dhillon on 07-12-2023 Ketones Ql (U) 5 mg/dl Negative [facility] MCHC Auto (RBC) [Mass/Vol]Or dered By: Willie Dhillon on 07-12-2023 MCHC (RBC) [Mass/Vol] 31.6 g/dL 32-36 [facility] Mucus LM Ql (Urine sed)Order ed By: Willie Dhillon on 07-12-2023 Mucus Ql (Urine sed) 0 SEEN /hpf [facility] Nitrite Test strip Ql (U)Ord ered By: Willie Dhillon on 07-12-2023 Nitrite Ql (U) Negative Negative [facility] No Panel InformationOrdered By: Willei Dhillon on 07-12-2023 26.2 pg 27.0-32.0 [facility] 13.3 % 11.6-14.6 [facility] 39.8 fl 35.1-43.9 [facility] 0.200 % 0.0-0.9 [facility] 0 % 0-5 [facility] 68 mL/min >60 [facility] 82 mL/min >60 [facility] 75.55 ml/min [facility] 12.9 RATIO 10-20 [facility] 5.4 g/dL 2.2-4.2 [facility] 30 U/L 13-75 [facility] 112 U/L 45-117 [facility] 12 U/L 13-56 [facility] 28.0 mmol/L 21.0-32.0 [facility] Negative < 50 ng/mL [facility] Positive < 500 ng/mL [facility] Platelets bldOrdered By: Heath Dhillon on 07-12-2023 Platelets (Bld) [#/Vol] 459 10*3/uL 150-450 [facility] Protein Test strip Ql (U)Ord ered By: Willie Dhillon on 07-12-2023 Protein Ql (U) 30 mg/dl Negative [facility] Serum or plasma albumin hussein urement (mass/volume)Ordered By: Willie Dhillon on 07-12-2023 Albumin [Mass/Vol] 3.6 g/dL 3.2-5.0 [facility] Serum or plasma albumin/glob ulin mass ratioOrdered By: Willie Dhillon on 07-12-2023 Albumin/Globulin [Mass ratio] 0.7 {ratio} 0.9-2.4 [facility] Serum or plasma calcium hussein urement (mass/volume)Ordered By: Willie Dhillon on 07-12-2023 Calcium [Mass/Vol] 9.3 mg/dL 8.5-10.1 [facility] Serum or plasma creatinine m easurement (mass/volume)Ordered By: Willie Dhillon on 07-12-2023 Creatinine [Mass/Vol] 1.01 mg/dL 0.55-1.02 [facility] Serum or plasma urea nitroge n measurement (mass/volume)Ordered By: Willie Dhillon on 07-12-2023 Urea nitrogen [Mass/Vol] 13 mg/dL 7-18 [facility] Squamous epithelial cells de tection in urine sediment by light microscopyOrdered By: Willie Dhillon on 07-12-2023 Epithelial cells.squamous LM Ql (Urine sed) 10-25 SEEN /hpf 5-10 [facility] Thin prep Papanicolaou smear with manual screeningOrdered By: Willie Dhillon on 07-12-2023 Thin prep Papanicolaou smear with manual screening 21 U/L 15-37 [facility] Thin prep Papanicolaou smear with manual screening 8 5-15 [facility] Urine blood detectionOrdered By: Willie Dhillon on 07-12-2023 RBC Ql (U) 10 /ul Negative [facility] RBC Ql (U) 0-5 SEEN /hpf 0-5 [facility] Urine clarityOrdered By: Heath Dhillon on 07-12-2023 Clarity (U) Cloudy Clear [facility] Urine color determinationOrd ered By: Willie Dhillon on 07-12-2023 Color (U) Yellow Yellow [facility] Urine glucose detectionOrder ed By: Willie Dhillon on 07-12-2023 Glucose Ql (U) Normal mg/dl Normal [facility] Urine leukocyte esterase det ection by dipstickOrdered By: Willie Dhillon on 07-12-2023 Leukocyte esterase Test strip Ql (U) 100 /ul Negative [facility] Urine pHOrdered By: Willie mo on 07-12-2023 pH (U) 7.0 [pH] 5.0 - 8.0 [facility] Urine phencyclidine (PCP) de tectionOrdered By: Willie Dhillon on 07-12-2023 Phencyclidine Ql (U) Negative < 25 ng/mL [facility] Urine sediment bacteria coun t by microscopy (number/high power field)Ordered By: Willie Dhillon on 07-12-2023 Bacteria LM.HPF (Urine sed) [#/Area] 2 /[HPF] None Seen [facility] Urine specific gravity measu rementOrdered By: Willie Dhillon on 07-12-2023 Specific gravity (U) [Rel density] 1.010 1.002-1.030 [facility] Urobilinogen Auto test strip Ql (U)Ordered By: Willie Dhillon on 07-12-2023 Urobilinogen Ql (U) 1 mg/dl Normal [facility] Absolute lymphocyte countOrd ered By: Alex Christiansen on 06-30-2023 Lymphocytes Auto (Unsp spec) [#/Vol] 2.97 10*3/uL 0.83-4.51 [facility] Basophil percentageOrdered B y: Alex Christiansen on 06-30-2023 Basophil percentage 201 mg/dL 74-106 [facility] Basophil percentage 8.0 g/dL 6.4-8.2 [facility] Basophil percentage 0.50 mg/dL 0.20-1.00 [facility] Basophil percentage 137 mmol/L 136-145 [facility] Basophil percentage 3.3 mmol/L 3.5-5.1 [facility] Basophil percentage 103 mmol/L 98-107 [facility] Basophils (Bld) [#/Vol] 9.9 10*3/uL 4.4-11.0 [facility] Basophils (Bld) [#/Vol] 6.2 10*3/uL 2.0-7.7 [facility] Basophils/100 WBC (Bld) 62.9 % 47-70 [facility] Basophils/100 WBC (Bld) 0.1 % 0-5 [facility] Basophils/100 WBC (Bld) 0.5 % 0-1 [facility] Blood erythrocytes count (nu mber/volume)Ordered By: Alex Christiansen on 06-30-2023 RBC (Bld) [#/Vol] 4.56 10*6/uL 4.2-5.4 [facility] Blood hemoglobin measurement (mass/volume)Ordered By: Alex Christiansen on 06-30-2023 Hemoglobin (Bld) [Mass/Vol] 12.2 g/dL 12.0-15.0 [facility] Blood lymphocytes/100 leukoc ytesOrdered By: Alex Christiansen on 06-30-2023 Lymphocytes/100 WBC (Bld) 30.0 % 19-41 [facility] Blood monocytes/100 leukocyt esOrdered By: Alex Christiansen on 06-30-2023 Monocytes/100 WBC (Bld) 6.1 % 0-10 [facility] Blood platelet mean volumeOr dered By: Alex Christiansen on 06-30-2023 Platelet mean volume (Bld) [Entitic vol] 9.0 fL 6.2-12.0 [facility] Determination of erythrocyte mean corpuscular volume (MCV)Ordered By: Alex Christiansen on 06-30-2023 MCV (RBC) [Entitic vol] 84.0 fL 81-99 [facility] Hematocrit Auto (Bld) [Volum e fraction]Ordered By: Alex Christiansen on 06-30-2023 Hematocrit (Bld) [Volume fraction] 38.3 % 37-47 [facility] MCHC Auto (RBC) [Mass/Vol]Or dered By: Alex Christiansen on 06-30-2023 MCHC (RBC) [Mass/Vol] 31.9 g/dL 32-36 [facility] No Panel InformationOrdered By: Alex Christiansen on 06-30-2023 26.8 pg 27.0-32.0 [facility] 13.6 % 11.6-14.6 [facility] 41.9 fl 35.1-43.9 [facility] 0.400 % 0.0-0.9 [facility] 0 % 0-5 [facility] 81 mL/min >60 [facility] 98 mL/min >60 [facility] 88.73 ml/min [facility] 10.4 RATIO 10-20 [facility] 4.6 g/dL 2.2-4.2 [facility] 22 U/L 13-75 [facility] 114 U/L 45-117 [facility] 11 U/L 13-56 [facility] 26.0 mmol/L 21.0-32.0 [facility] Platelets bldOrdered By: Milton Christiansen on 06-30-2023 Platelets (Bld) [#/Vol] 437 10*3/uL 150-450 [facility] Serum or plasma albumin hussein urement (mass/volume)Ordered By: Alex Christiansen on 06-30-2023 Albumin [Mass/Vol] 3.4 g/dL 3.2-5.0 [facility] Serum or plasma albumin/glob ulin mass ratioOrdered By: Alex Christiansen on 06-30-2023 Albumin/Globulin [Mass ratio] 0.7 {ratio} 0.9-2.4 [facility] Serum or plasma calcium hussein urement (mass/volume)Ordered By: Alex Christiansen on 06-30-2023 Calcium [Mass/Vol] 9.4 mg/dL 8.5-10.1 [facility] Serum or plasma creatinine m easurement (mass/volume)Ordered By: Alex Christiansen on 06-30-2023 Creatinine [Mass/Vol] 0.86 mg/dL 0.55-1.02 [facility] Serum or plasma urea nitroge n measurement (mass/volume)Ordered By: Alex Christiansen on 06-30-2023 Urea nitrogen [Mass/Vol] 9 mg/dL 7-18 [facility] Thin prep Papanicolaou smear with manual screeningOrdered By: Alex Christiansen on 06-30-2023 Thin prep Papanicolaou smear with manual screening 7 U/L 15-37 [facility] Thin prep Papanicolaou smear with manual screening 8 5-15 [facility] Absolute lymphocyte countOrd ered By: Drew Hinson on 06-28-2023 Lymphocytes Auto (Unsp spec) [#/Vol] 2.31 10*3/uL 0.83-4.51 [facility] Basophil percentageOrdered B y: Drew Hinson on 06-28-2023 Basophil percentage 0-5 SEEN /hpf 0-5 [facility] Basophil percentage 221 mg/dL 74-106 [facility] Basophil percentage 9.3 g/dL 6.4-8.2 [facility] Basophil percentage 0.60 mg/dL 0.20-1.00 [facility] Basophil percentage 136 mmol/L 136-145 [facility] Basophil percentage 3.2 mmol/L 3.5-5.1 [facility] Basophil percentage 102 mmol/L 98-107 [facility] Basophils (Bld) [#/Vol] 9.2 10*3/uL 4.4-11.0 [facility] Basophils (Bld) [#/Vol] 6.4 10*3/uL 2.0-7.7 [facility] Basophils/100 WBC (Bld) 0.5 % 0-1 [facility] Basophils/100 WBC (Bld) 69.1 % 47-70 [facility] Basophils/100 WBC (Bld) 0.1 % 0-5 [facility] Bilirubin [Mass/Vol] 0.60 mg/dL 0.20-1.00 [facility] Comment on above: For patients on eltr ombopag therapy, use of Dimension Harvest TBIL is not recommended. Chloride [Moles/Vol] 102 mmol/L 98-107 [facility] Eosinophils/100 WBC (Bld) 0.1 % 0-5 [facility] Glucose [Mass/Vol] 221 mg/dL 74-106 [facility] Comment on above: Glucose result great er than or equal to 200 mg/dLsuggests DIABETES MELLITUS per A.D.A. criteria. Neutrophils (Bld) [#/Vol] 6.4 10*3/uL 2.0-7.7 [facility] Neutrophils/100 WBC (Bld) 69.1 % 47-70 [facility] Potassium [Moles/Vol] 3.2 mmol/L 3.5-5.1 [facility] Protein [Mass/Vol] 9.3 g/dL 6.4-8.2 [facility] Sodium [Moles/Vol] 136 mmol/L 136-145 [facility] WBC (Bld) [#/Vol] 9.2 10*3/uL 4.4-11.0 [facility] Bilirubin Test strip Ql (U)O rdered By: Drew Hinson on 06-28-2023 Bilirubin Ql (U) 1 mg/dL Negative [facility] Comment on above: COLOR OF URINE MAY A FFECT DIPSTICK RESULTS. Blood erythrocytes count (nu mber/volume)Ordered By: Drew Hinson on 06-28-2023 RBC (Bld) [#/Vol] 4.85 10*6/uL 4.2-5.4 [facility] Blood hemoglobin measurement (mass/volume)Ordered By: Drew Hinson on 06-28-2023 Hemoglobin (Bld) [Mass/Vol] 13.0 g/dL 12.0-15.0 [facility] Blood lymphocytes/100 leukoc ytesOrdered By: Drew Hinson on 06-28-2023 Lymphocytes/100 WBC (Bld) 25.1 % 19-41 [facility] Blood monocytes/100 leukocyt esOrdered By: Drew Hinson on 06-28-2023 Monocytes/100 WBC (Bld) 4.8 % 0-10 [facility] Blood platelet mean volumeOr dered By: Drew Hinson on 06-28-2023 Platelet mean volume (Bld) [Entitic vol] 8.9 fL 6.2-12.0 [facility] Determination of erythrocyte mean corpuscular volume (MCV)Ordered By: Drew Hinson on 06-28-2023 MCV (RBC) [Entitic vol] 83.7 fL 81-99 [facility] Hematocrit Auto (Bld) [Volum e fraction]Ordered By: Drew Hinson on 06-28-2023 Hematocrit (Bld) [Volume fraction] 40.6 % 37-47 [facility] Ketones Test strip Ql (U)Ord ered By: Drew Hinson on 06-28-2023 Ketones Ql (U) 50 mg/dl Negative [facility] Laboratory - Chemistry and C hemistry - challengeOrdered By: Drew Hinson on 06-28-2023 ALP [Catalytic activity/Vol] 128 U/L 45-117 [facility] ALT [Catalytic activity/Vol] 13 U/L 13-56 [facility] CO2 [Moles/Vol] 25.0 mmol/L 21.0-32.0 [facility] Globulin (S) [Mass/Vol] 5.4 g/dL 2.2-4.2 [facility] Lipase [Catalytic activity/Vol] 28 U/L 13-75 [facility] Comment on above: Please note:LIPASE r evised reference range effective 22. New Lipase methodology. Expected to produce lower values than the previous assay method. NEW Reference Range: 13 - 75 U/L Urea nitrogen/Creatinine [Mass ratio] 11.7 mg/mg 10-20 [facility] - Hematology and Cell countsOrdered By: Drew Hinson on 06-28-2023 Erythrocyte distribution width (RBC) [Entitic vol] 41.7 fL 35.1-43.9 [facility] Erythrocyte distribution width (RBC) [Ratio] 13.6 % 11.6-14.6 [facility] Immature granulocytes/100 WBC (Bld) 0.400 % 0.0-0.9 [facility] Comment on above: IG% - Immature Granu locytes (promyelocytes, myelocytes and metamyelocytes) > 1% indicates that a LEFT SHIFT is Present. MCH (RBC) [Entitic mass] 26.8 pg 27.0-32.0 [facility] Nucleated RBC/100 WBC (Bld) [Ratio] 0 % 0-5 [facility] MCHC Auto (RBC) [Mass/Vol]Or dered By: Drew Hinson on 06-28-2023 MCHC (RBC) [Mass/Vol] 32.0 g/dL 32-36 [facility] Mucus LM Ql (Urine sed)Order ed By: Drew Hinson on 06-28-2023 Mucus Ql (Urine sed) 1+ /hpf [facility] Nitrite Test strip Ql (U)Ord ered By: Drew Hinson on 06-28-2023 Nitrite Ql (U) Negative Negative [facility] No Panel InformationOrdered By: Drew Hinson on 06-28-2023 Estimated Creatinine Clearance Calc 81.18 ml/min [facility] Estimated GFR (MDRD) Amer 89 mL/min >60 [facility] Comment on above: GFR Calc Estimated GFR (MDRD) Non-Af Amer 74 mL/min >60 [facility] Comment on above: Non- GFR Calc 26.8 pg 27.0-32.0 [facility] 13.6 % 11.6-14.6 [facility] 41.7 fl 35.1-43.9 [facility] 0.400 % 0.0-0.9 [facility] 0 % 0-5 [facility] 74 mL/min >60 [facility] 89 mL/min >60 [facility] 81.18 ml/min [facility] 11.7 RATIO 10-20 [facility] 5.4 g/dL 2.2-4.2 [facility] 28 U/L 13-75 [facility] 128 U/L 45-117 [facility] 13 U/L 13-56 [facility] 25.0 mmol/L 21.0-32.0 [facility] Platelets bldOrdered By: Dwight Hinson on 06-28-2023 Platelets (Bld) [#/Vol] 491 10*3/uL 150-450 [facility] Protein Test strip Ql (U)Ord ered By: Drew Hinson on 06-28-2023 Protein Ql (U) 30 mg/dl Negative [facility] Serum or plasma albumin hussein urement (mass/volume)Ordered By: Drew Hinson on 06-28-2023 Albumin [Mass/Vol] 3.9 g/dL 3.2-5.0 [facility] Serum or plasma albumin/glob ulin mass ratioOrdered By: Drew Hinson on 06-28-2023 Albumin/Globulin [Mass ratio] 0.7 {ratio} 0.9-2.4 [facility] Serum or plasma calcium hussein urement (mass/volume)Ordered By: Drew Hinson on 06-28-2023 Calcium [Mass/Vol] 9.6 mg/dL 8.5-10.1 [facility] Serum or plasma creatinine m easurement (mass/volume)Ordered By: Drew Hinson on 06-28-2023 Creatinine [Mass/Vol] 0.94 mg/dL 0.55-1.02 [facility] Comment on above: The validity of the calculated GFR & GFRAA in patients over 70 years has not been determined. Clinical correlation is essential. Serum or plasma urea nitroge n measurement (mass/volume)Ordered By: Drew Hinson on 06-28-2023 Urea nitrogen [Mass/Vol] 11 mg/dL 7-18 [facility] Squamous epithelial cells de tection in urine sediment by light microscopyOrdered By: Drew Hinson on 06-28-2023 Epithelial cells.squamous LM Ql (Urine sed) 5-10 SEEN /hpf 5-10 [facility] Thin prep Papanicolaou smear with manual screeningOrdered By: Drew Hinson on 06-28-2023 Thin prep Papanicolaou smear with manual screening 11 U/L 15-37 [facility] Thin prep Papanicolaou smear with manual screening 9 5-15 [facility] Urine blood detectionOrdered By: Drew Hinson on 06-28-2023 RBC Ql (U) 25 /ul Negative [facility] RBC Ql (U) 0-5 SEEN /hpf 0-5 [facility] Urine clarityOrdered By: Dwight Hinson on 06-28-2023 Clarity (U) Cloudy Clear [facility] Urine color determinationOrd ered By: Drew Hinson on 06-28-2023 Color (U) Yellow Yellow [facility] Urine glucose detectionOrder ed By: Drew Hinson on 06-28-2023 Glucose Ql (U) 50 mg/dl Normal [facility] Urine leukocyte esterase det ection by dipstickOrdered By: Drew Hinson on 06-28-2023 Leukocyte esterase Test strip Ql (U) 25 /ul Negative [facility] Urine pHOrdered By: Drew castellanos on 06-28-2023 pH (U) 6.0 [pH] 5.0 - 8.0 [facility] Urine sediment bacteria coun t by microscopy (number/high power field)Ordered By: Drew Hinson on 06-28-2023 Bacteria LM.HPF (Urine sed) [#/Area] 2 /[HPF] None Seen [facility] Urine specific gravity measu rementOrdered By: Drew Hinson on 06-28-2023 Specific gravity (U) [Rel density] 1.020 1.002-1.030 [facility] Urobilinogen Auto test strip Ql (U)Ordered By: Drew Hinson on 06-28-2023 Urobilinogen Ql (U) 1 mg/dl Normal [facility] Absolute lymphocyte countOrd ered By: Taiwo Chen on 06-26-2023 Lymphocytes Auto (Unsp spec) [#/Vol] 2.63 10*3/uL 0.83-4.51 [facility] Basophil percentageOrdered B y: Taiwo Chen on 06-26-2023 Basophil percentage 228 mg/dL 74-106 [facility] Basophil percentage 8.4 g/dL 6.4-8.2 [facility] Basophil percentage 0.30 mg/dL 0.20-1.00 [facility] Basophil percentage 136 mmol/L 136-145 [facility] Basophil percentage 3.8 mmol/L 3.5-5.1 [facility] Basophil percentage 102 mmol/L 98-107 [facility] Basophils (Bld) [#/Vol] 8.6 10*3/uL 4.4-11.0 [facility] Basophils (Bld) [#/Vol] 5.5 10*3/uL 2.0-7.7 [facility] Basophils/100 WBC (Bld) 0.6 % 0-1 [facility] Basophils/100 WBC (Bld) 63.6 % 47-70 [facility] Basophils/100 WBC (Bld) 0.2 % 0-5 [facility] Bilirubin [Mass/Vol] 0.30 mg/dL 0.20-1.00 [facility] Comment on above: For patients on eltr ombopag therapy, use of Dimension Harvest TBIL is not recommended. Chloride [Moles/Vol] 102 mmol/L 98-107 [facility] Eosinophils/100 WBC (Bld) 0.2 % 0-5 [facility] Glucose [Mass/Vol] 228 mg/dL 74-106 [facility] Comment on above: Glucose result great er than or equal to 200 mg/dLsuggests DIABETES MELLITUS per A.D.A. criteria. Neutrophils (Bld) [#/Vol] 5.5 10*3/uL 2.0-7.7 [facility] Neutrophils/100 WBC (Bld) 63.6 % 47-70 [facility] Potassium [Moles/Vol] 3.8 mmol/L 3.5-5.1 [facility] Protein [Mass/Vol] 8.4 g/dL 6.4-8.2 [facility] Sodium [Moles/Vol] 136 mmol/L 136-145 [facility] WBC (Bld) [#/Vol] 8.6 10*3/uL 4.4-11.0 [facility] Blood erythrocytes count (nu mber/volume)Ordered By: Taiwo Chen on 06-26-2023 RBC (Bld) [#/Vol] 4.31 10*6/uL 4.2-5.4 [facility] Blood hemoglobin measurement (mass/volume)Ordered By: Taiwo Chen on 06-26-2023 Hemoglobin (Bld) [Mass/Vol] 11.6 g/dL 12.0-15.0 [facility] Blood lymphocytes/100 leukoc ytesOrdered By: Taiwo Chen on 06-26-2023 Lymphocytes/100 WBC (Bld) 30.6 % 19-41 [facility] Blood monocytes/100 leukocyt esOrdered By: Taiwo Chen on 06-26-2023 Monocytes/100 WBC (Bld) 4.3 % 0-10 [facility] Blood platelet mean volumeOr dered By: Taiwo Chen on 06-26-2023 Platelet mean volume (Bld) [Entitic vol] 9.3 fL 6.2-12.0 [facility] Determination of erythrocyte mean corpuscular volume (MCV)Ordered By: Taiwo Chen on 06-26-2023 MCV (RBC) [Entitic vol] 84.7 fL 81-99 [facility] Hematocrit Auto (Bld) [Volum e fraction]Ordered By: Taiwo Chen on 06-26-2023 Hematocrit (Bld) [Volume fraction] 36.5 % 37-47 [facility] Laboratory - Chemistry and C hemistry - challengeOrdered By: Taiwo Chen on 06-26-2023 ALP [Catalytic activity/Vol] 135 U/L 45-117 [facility] ALT [Catalytic activity/Vol] 15 U/L 13-56 [facility] CO2 [Moles/Vol] 26.0 mmol/L 21.0-32.0 [facility] Globulin (S) [Mass/Vol] 5.0 g/dL 2.2-4.2 [facility] Urea nitrogen/Creatinine [Mass ratio] 11.4 mg/mg 10-20 [facility] Laboratory - Hematology and Cell countsOrdered By: Taiwo Chen on 06-26-2023 Erythrocyte distribution width (RBC) [Entitic vol] 42.7 fL 35.1-43.9 [facility] Erythrocyte distribution width (RBC) [Ratio] 13.7 % 11.6-14.6 [facility] Immature granulocytes/100 WBC (Bld) 0.700 % 0.0-0.9 [facility] Comment on above: IG% - Immature Granu locytes (promyelocytes, myelocytes and metamyelocytes) > 1% indicates that a LEFT SHIFT is Present. MCH (RBC) [Entitic mass] 26.9 pg 27.0-32.0 [facility] Nucleated RBC/100 WBC (Bld) [Ratio] 0 % 0-5 [facility] MCHC Auto (RBC) [Mass/Vol]Or dered By: Taiwo Chen on 06-26-2023 MCHC (RBC) [Mass/Vol] 31.8 g/dL 32-36 [facility] No Panel InformationOrdered By: Taiwo Chen on 06-26-2023 Estimated Creatinine Clearance Calc 86.71 ml/min [facility] Estimated GFR (MDRD) Amer 97 mL/min >60 [facility] Comment on above: GFR Calc Estimated GFR (MDRD) Non-Af Amer 80 mL/min >60 [facility] Comment on above: Non- GFR Calc 26.9 pg 27.0-32.0 [facility] 13.7 % 11.6-14.6 [facility] 42.7 fl 35.1-43.9 [facility] 0.700 % 0.0-0.9 [facility] 0 % 0-5 [facility] 80 mL/min >60 [facility] 97 mL/min >60 [facility] 86.71 ml/min [facility] 11.4 RATIO 10-20 [facility] 5.0 g/dL 2.2-4.2 [facility] 135 U/L 45-117 [facility] 15 U/L 13-56 [facility] 26.0 mmol/L 21.0-32.0 [facility] Platelets bldOrdered By: Liss Chen on 06-26-2023 Platelets (Bld) [#/Vol] 464 10*3/uL 150-450 [facility] Serum or plasma albumin hussein urement (mass/volume)Ordered By: Taiwo Chen on 06-26-2023 Albumin [Mass/Vol] 3.4 g/dL 3.2-5.0 [facility] Serum or plasma albumin/glob ulin mass ratioOrdered By: Taiwo Chen on 06-26-2023 Albumin/Globulin [Mass ratio] 0.7 {ratio} 0.9-2.4 [facility] Serum or plasma calcium hussein urement (mass/volume)Ordered By: Taiwo Chen on 06-26-2023 Calcium [Mass/Vol] 9.5 mg/dL 8.5-10.1 [facility] Serum or plasma creatinine m easurement (mass/volume)Ordered By: Taiwo Chen on 06-26-2023 Creatinine [Mass/Vol] 0.88 mg/dL 0.55-1.02 [facility] Comment on above: The validity of the calculated GFR & GFRAA in patients over 70 years has not been determined. Clinical correlation is essential. Serum or plasma urea nitroge n measurement (mass/volume)Ordered By: Taiwo Chen on 06-26-2023 Urea nitrogen [Mass/Vol] 10 mg/dL 7-18 [facility] Thin prep Papanicolaou smear with manual screeningOrdered By: Taiwo Chen on 06-26-2023 Thin prep Papanicolaou smear with manual screening 8 U/L 15-37 [facility] Thin prep Papanicolaou smear with manual screening 8 5-15 [facility] Absolute lymphocyte countOrd ered By: Tesfaye Mitchell on 06-25-2023 Lymphocytes Auto (Unsp spec) [#/Vol] 2.74 10*3/uL 0.83-4.51 [facility] Basophil percentageOrdered B y: Tesfaye Mitchell on 06-25-2023 Basophil percentage 259 mg/dL 74-106 [facility] Basophil percentage 8.7 g/dL 6.4-8.2 [facility] Basophil percentage 0.40 mg/dL 0.20-1.00 [facility] Basophil percentage 137 mmol/L 136-145 [facility] Basophil percentage 4.0 mmol/L 3.5-5.1 [facility] Basophil percentage 103 mmol/L 98-107 [facility] Basophils (Bld) [#/Vol] 11.7 10*3/uL 4.4-11.0 [facility] Basophils (Bld) [#/Vol] 8.5 10*3/uL 2.0-7.7 [facility] Basophils/100 WBC (Bld) 0.4 % 0-1 [facility] Basophils/100 WBC (Bld) 72.6 % 47-70 [facility] Basophils/100 WBC (Bld) 0.0 % 0-5 [facility] Bilirubin [Mass/Vol] 0.40 mg/dL 0.20-1.00 [facility] Comment on above: For patients on eltr ombopag therapy, use of Dimension Harvest TBIL is not recommended. Chloride [Moles/Vol] 103 mmol/L 98-107 [facility] Eosinophils/100 WBC (Bld) 0.0 % 0-5 [facility] Glucose [Mass/Vol] 259 mg/dL 74-106 [facility] Comment on above: Glucose result great er than or equal to 200 mg/dLsuggests DIABETES MELLITUS per A.D.A. criteria. Neutrophils (Bld) [#/Vol] 8.5 10*3/uL 2.0-7.7 [facility] Neutrophils/100 WBC (Bld) 72.6 % 47-70 [facility] Potassium [Moles/Vol] 4.0 mmol/L 3.5-5.1 [facility] Protein [Mass/Vol] 8.7 g/dL 6.4-8.2 [facility] Sodium [Moles/Vol] 137 mmol/L 136-145 [facility] WBC (Bld) [#/Vol] 11.7 10*3/uL 4.4-11.0 [facility] Basophil percentage 0-5 SEEN /hpf 0-5 [facility] Bilirubin Test strip Ql (U)O rdered By: Tesfaye Mitchell on 06-25-2023 Bilirubin Ql (U) Negative Negative [facility] Blood erythrocytes count (nu mber/volume)Ordered By: Tesfaye Mitchell on 06-25-2023 RBC (Bld) [#/Vol] 4.53 10*6/uL 4.2-5.4 [facility] Blood hemoglobin measurement (mass/volume)Ordered By: Tesfaye Mitchell on 06-25-2023 Hemoglobin (Bld) [Mass/Vol] 12.0 g/dL 12.0-15.0 [facility] Blood lymphocytes/100 leukoc ytesOrdered By: Tesfaye Mitchell on 06-25-2023 Lymphocytes/100 WBC (Bld) 23.5 % 19-41 [facility] Blood monocytes/100 leukocyt esOrdered By: Tesfaye Mitchell on 06-25-2023 Monocytes/100 WBC (Bld) 2.9 % 0-10 [facility] Blood platelet mean volumeOr dered By: Tesfaye Mitchell on 06-25-2023 Platelet mean volume (Bld) [Entitic vol] 9.1 fL 6.2-12.0 [facility] Determination of erythrocyte mean corpuscular volume (MCV)Ordered By: Tesfaye Mitchell on 06-25-2023 MCV (RBC) [Entitic vol] 84.3 fL 81-99 [facility] Hematocrit Auto (Bld) [Volum e fraction]Ordered By: Tesfaye Mitchell on 06-25-2023 Hematocrit (Bld) [Volume fraction] 38.2 % 37-47 [facility] Ketones Test strip Ql (U)Ord ered By: Tesfaye Mitchell on 06-25-2023 Ketones Ql (U) 15 mg/dl Negative [facility] Laboratory - Chemistry and C hemistry - challengeOrdered By: Tesfaye Mitchell on 06-25-2023 ALP [Catalytic activity/Vol] 156 U/L 45-117 [facility] ALT [Catalytic activity/Vol] 15 U/L 13-56 [facility] CO2 [Moles/Vol] 24.0 mmol/L 21.0-32.0 [facility] Globulin (S) [Mass/Vol] 5.4 g/dL 2.2-4.2 [facility] Lipase [Catalytic activity/Vol] 32 U/L 13-75 [facility] Comment on above: Please note:LIPASE r evised reference range effective 22. New Lipase methodology. Expected to produce lower values than the previous assay method. NEW Reference Range: 13 - 75 U/L Urea nitrogen/Creatinine [Mass ratio] 15.7 mg/mg 10-20 [facility] Laboratory - Drug toxicology Ordered By: Tesfaye Mitchell on 06-25-2023 Amphetamines Ql (U) Negative <1000 ng/mL [facility] Benzodiazepines Ql (U) Negative < 200 ng/mL [facility] Cannabinoids Screen Ql (U) Negative < 50 ng/mL [facility] Cocaine Ql (U) Negative < 300 ng/mL [facility] Opiates Ql (U) Negative < 300 ng/mL [facility] Laboratory - Hematology and Cell countsOrdered By: Tesfaye Mitchell on 06-25-2023 Erythrocyte distribution width (RBC) [Entitic vol] 42.4 fL 35.1-43.9 [facility] Erythrocyte distribution width (RBC) [Ratio] 13.7 % 11.6-14.6 [facility] Immature granulocytes/100 WBC (Bld) 0.600 % 0.0-0.9 [facility] Comment on above: IG% - Immature Granu locytes (promyelocytes, myelocytes and metamyelocytes) > 1% indicates that a LEFT SHIFT is Present. MCH (RBC) [Entitic mass] 26.5 pg 27.0-32.0 [facility] Nucleated RBC/100 WBC (Bld) [Ratio] 0 % 0-5 [facility] MCHC Auto (RBC) [Mass/Vol]Or dered By: Tesfaye Mitchell on 06-25-2023 MCHC (RBC) [Mass/Vol] 31.4 g/dL 32-36 [facility] Mucus LM Ql (Urine sed)Order ed By: Tesfaye Mitchell on 06-25-2023 Mucus Ql (Urine sed) 0 SEEN /hpf [facility] Nitrite Test strip Ql (U)Ord ered By: Tesfaye Mitchell on 06-25-2023 Nitrite Ql (U) Negative Negative [facility] No Panel InformationOrdered By: Tesfaye Mitchell on 06-25-2023 Estimated Creatinine Clearance Calc 91.94 ml/min [facility] Estimated GFR (MDRD) Amer 103 mL/min >60 [facility] Comment on above: GFR Calc Estimated GFR (MDRD) Non-Af Amer 85 mL/min >60 [facility] Comment on above: Non- GFR Calc 26.5 pg 27.0-32.0 [facility] 13.7 % 11.6-14.6 [facility] 42.4 fl 35.1-43.9 [facility] 0.600 % 0.0-0.9 [facility] 0 % 0-5 [facility] 85 mL/min >60 [facility] 103 mL/min >60 [facility] 91.94 ml/min [facility] 15.7 RATIO 10-20 [facility] 5.4 g/dL 2.2-4.2 [facility] 32 U/L 13-75 [facility] 156 U/L 45-117 [facility] 15 U/L 13-56 [facility] 24.0 mmol/L 21.0-32.0 [facility] MDMA (Ecstasy) Screen Positive < 500 ng/mL [facility] Urine Barbiturates Screen Negative < 200 ng/mL [facility] Urine Drug Screen Comment [facility] Comment on above: CONFIRMATORY TESTING FOR [...] Methadone Screen Negative < 300 ng/mL [facility] Negative < 50 ng/mL [facility] Positive < 500 ng/mL [facility] Platelets bldOrdered By: Mauro Mitchell on 06-25-2023 Platelets (Bld) [#/Vol] 497 10*3/uL 150-450 [facility] Protein Test strip Ql (U)Ord ered By: Tesfaye Mitchell on 06-25-2023 Protein Ql (U) 30 mg/dl Negative [facility] Serum or plasma albumin hussein urement (mass/volume)Ordered By: Tesfaye Mitchell on 06-25-2023 Albumin [Mass/Vol] 3.3 g/dL 3.2-5.0 [facility] Serum or plasma albumin/glob ulin mass ratioOrdered By: Tesfaye Mitchell on 06-25-2023 Albumin/Globulin [Mass ratio] 0.6 {ratio} 0.9-2.4 [facility] Serum or plasma calcium hussein urement (mass/volume)Ordered By: Tesfaye Mitchell on 06-25-2023 Calcium [Mass/Vol] 9.6 mg/dL 8.5-10.1 [facility] Serum or plasma creatinine m easurement (mass/volume)Ordered By: Tesfaye Mitchell on 06-25-2023 Creatinine [Mass/Vol] 0.83 mg/dL 0.55-1.02 [facility] Comment on above: The validity of the calculated GFR & GFRAA in patients over 70 years has not been determined. Clinical correlation is essential. Serum or plasma urea nitroge n measurement (mass/volume)Ordered By: Tesfaye Mitchell on 06-25-2023 Urea nitrogen [Mass/Vol] 13 mg/dL 7-18 [facility] Squamous epithelial cells de tection in urine sediment by light microscopyOrdered By: Tesfaye Mitchell on 06-25-2023 Epithelial cells.squamous LM Ql (Urine sed) 5-10 SEEN /hpf 5-10 [facility] Thin prep Papanicolaou smear with manual screeningOrdered By: Tesfaye Mitchell on 06-25-2023 Thin prep Papanicolaou smear with manual screening 14 U/L 15-37 [facility] Thin prep Papanicolaou smear with manual screening 10 5-15 [facility] Urine blood detectionOrdered By: Tesfaye Mitchell on 06-25-2023 RBC Ql (U) 250 /ul Negative [facility] RBC Ql (U) > 100 SEEN /hpf 0-5 [facility] Urine clarityOrdered By: Mauro Mitchell on 06-25-2023 Clarity (U) Sl. Cloudy Clear [facility] Urine color determinationOrd ered By: Tesfaye Mitchell on 06-25-2023 Color (U) Yellow Yellow [facility] Urine glucose detectionOrder ed By: Tesfaye Mitchell on 06-25-2023 Glucose Ql (U) 250 mg/dl Normal [facility] Urine leukocyte esterase det ection by dipstickOrdered By: Tesfaye Mitchell on 06-25-2023 Leukocyte esterase Test strip Ql (U) 25 /ul Negative [facility] Urine pHOrdered By: Tesfaye figueroa on 06-25-2023 pH (U) 7.0 [pH] 5.0 - 8.0 [facility] Urine phencyclidine (PCP) de tectionOrdered By: Tesfaye Mitchell on 06-25-2023 Phencyclidine Ql (U) Negative < 25 ng/mL [facility] Urine sediment bacteria coun t by microscopy (number/high power field)Ordered By: Tesfaye Mitchell on 06-25-2023 Bacteria LM.HPF (Urine sed) [#/Area] 0 /[HPF] None Seen [facility] Urine specific gravity measu rementOrdered By: Tesfaye Mitchell on 06-25-2023 Specific gravity (U) [Rel density] 1.010 1.002-1.030 [facility] Urobilinogen Auto test strip Ql (U)Ordered By: Tesfaye Mitchell on 06-25-2023 Urobilinogen Ql (U) Normal mg/dl Normal [facility] Anaerobic cultureOrdered By: Abdirizak Forrest on 05-18-2023 Bacteria identified Anaer cx Nom (Unsp spec) No anaerobic bacteria isolated. [facility] Bacteria identified Cx Nom ( Wound)Ordered By: Abdirizak Forrest on 05-18-2023 Wound Culture Meth. resistant Stap h. aureus [facility] Routine wound culture Meth. resistant St aph. aureus [facility] Fungus cultureOrdered By: Neva Forrest on 05-18-2023 Fungus identified Cx Nom (Unsp spec) [facility] Gram stain for investigation of transfusion reactionOrdered By: Abdirizak Forrest on 05-18-2023 Microscopic observation Gram stain Nom (Unsp spec) [facility] Glucose Glucometer (BldC) [M ass/Vol]Ordered By: Rickey Gifford on 05-09-2023 Glucose [Mass/Vol] 157 mg/dL 74-106 [facility] Comment on above: MANAGEMENT OF PATIEN T CARE PER NURSING PROTOCOL Basophil percentageOrdered B y: Rickey Gifford on 05-07-2023 Basophil percentage 161 mg/dL 74-106 [facility] Basophil percentage 138 mmol/L 136-145 [facility] Basophil percentage 4.0 mmol/L 3.5-5.1 [facility] Basophil percentage 108 mmol/L 98-107 [facility] Chloride [Moles/Vol] 108 mmol/L 98-107 [facility] Glucose [Mass/Vol] 161 mg/dL 74-106 [facility] Comment on above: Fasting Glucose resu lt greater than or equal to 126 mg/dL suggests DIABETES MELLITUS per A.D.A. criteria. Potassium [Moles/Vol] 4.0 mmol/L 3.5-5.1 [facility] Sodium [Moles/Vol] 138 mmol/L 136-145 [facility] Laboratory - Chemistry and C hemistry - challengeOrdered By: Rickey Gifford on 05-07-2023 CO2 [Moles/Vol] 26.0 mmol/L 21.0-32.0 [facility] Urea nitrogen/Creatinine [Mass ratio] 17.1 mg/mg 10- [facility] No Panel InformationOrdered By: Rickey Gifford on 05-07-2023 Estimated Creatinine Clearance Calc 131.56 ml/min [facility] Estimated GFR (MDRD) Amer 154 mL/min >60 [facility] Comment on above: GFR Calc Estimated GFR (MDRD) Non-Af Amer 127 mL/min >60 [facility] Comment on above: Non- GFR Calc 127 mL/min >60 [facility] 154 mL/min >60 [facility] 131.56 ml/min [facility] 17.1 RATIO 04-30 [facility] 26.0 mmol/L 21.0-32.0 [facility] Serum or plasma calcium hussein urement (mass/volume)Ordered By: Rickey Gifford on 05-07-2023 Calcium [Mass/Vol] 8.4 mg/dL 8.5-10.1 [facility] Serum or plasma creatinine m easurement (mass/volume)Ordered By: Rickey Gifford on 05-07-2023 Creatinine [Mass/Vol] 0.58 mg/dL 0.55-1.02 [facility] Comment on above: The validity of the calculated GFR & GFRAA in patients over 70 years has not been determined. Clinical correlation is essential. Serum or plasma urea nitroge n measurement (mass/volume)Ordered By: Rickey Gifford on 05-07-2023 Urea nitrogen [Mass/Vol] 10 mg/dL 7-18 [facility] Thin prep Papanicolaou smear with manual screeningOrdered By: Rickey Gifford on 05-07-2023 Thin prep Papanicolaou smear with manual screening 4 5-15 [facility] Absolute lymphocyte countOrd ered By: Rickey Gifford on 05-06-2023 Lymphocytes Auto (Unsp spec) [#/Vol] 2.89 10*3/uL 0.83-4.51 [facility] Basophil percentageOrdered B y: Rickey Gifford on 05-06-2023 Basophils (Bld) [#/Vol] 5.8 10*3/uL 4.4-11.0 [facility] Basophils (Bld) [#/Vol] 2.4 10*3/uL 2.0-7.7 [facility] Basophils/100 WBC (Bld) 40.5 % 47-70 [facility] Basophils/100 WBC (Bld) 0.3 % 0-5 [facility] Basophils/100 WBC (Bld) 0.5 % 0-1 [facility] Eosinophils/100 WBC (Bld) 0.3 % 0-5 [facility] Neutrophils (Bld) [#/Vol] 2.4 10*3/uL 2.0-7.7 [facility] Neutrophils/100 WBC (Bld) 40.5 % 47-70 [facility] WBC (Bld) [#/Vol] 5.8 10*3/uL 4.4-11.0 [facility] Blood erythrocytes count (nu mber/volume)Ordered By: Rickey Gifford on 05-06-2023 RBC (Bld) [#/Vol] 3.54 10*6/uL 4.2-5.4 [facility] Blood hemoglobin measurement (mass/volume)Ordered By: Rickey Gifford on 05-06-2023 Hemoglobin (Bld) [Mass/Vol] 10.1 g/dL 12.0-15.0 [facility] Blood lymphocytes/100 leukoc ytesOrdered By: Rickey Gifford on 05-06-2023 Lymphocytes/100 WBC (Bld) 49.6 % 19-41 [facility] Blood monocytes/100 leukocyt esOrdered By: Rickey Gifford on 05-06-2023 Monocytes/100 WBC (Bld) 8.4 % 0-10 [facility] Blood platelet mean volumeOr dered By: Rickey Gifford on 05-06-2023 Platelet mean volume (Bld) [Entitic vol] 9.4 fL 6.2-12.0 [facility] Determination of erythrocyte mean corpuscular volume (MCV)Ordered By: Rickey Gifford on 05-06-2023 MCV (RBC) [Entitic vol] 92.7 fL 81-99 [facility] Hematocrit Auto (Bld) [Volum e fraction]Ordered By: Rickey Gifford on 05-06-2023 Hematocrit (Bld) [Volume fraction] 32.8 % 37-47 [facility] Laboratory - Hematology and Cell countsOrdered By: Rickey Gifford on 05-06-2023 Erythrocyte distribution width (RBC) [Entitic vol] 54.6 fL 35.1-43.9 [facility] Erythrocyte distribution width (RBC) [Ratio] 15.9 % 11.6-14.6 [facility] Immature granulocytes/100 WBC (Bld) 0.700 % 0.0-0.9 [facility] Comment on above: IG% - Immature Granu locytes (promyelocytes, myelocytes and metamyelocytes) > 1% indicates that a LEFT SHIFT is Present. MCH (RBC) [Entitic mass] 28.5 pg 27.0-32.0 [facility] Nucleated RBC/100 WBC (Bld) [Ratio] 0 % 0-5 [facility] MCHC Auto (RBC) [Mass/Vol]Or dered By: Rickey Gifford on 05-06-2023 MCHC (RBC) [Mass/Vol] 30.8 g/dL 32-36 [facility] No Panel InformationOrdered By: Rickey Gifford on 05-06-2023 28.5 pg 27.0-32.0 [facility] 15.9 % 11.6-14.6 [facility] 54.6 fl 35.1-43.9 [facility] 0.700 % 0.0-0.9 [facility] 0 % 0-5 [facility] Platelets bldOrdered By: Ivy Gifford on 05-06-2023 Platelets (Bld) [#/Vol] 317 10*3/uL 150-450 [facility] Serum or plasma trough vanco mycin levelOrdered By: Rickey Gifford on 05-05-2023 Vancomycin trough [Mass/Vol] 15.1 ug/mL 5.0-15.0 [facility] Comment on above: VANCOMYCIN STANDARED DRUG THERAPY TROUGH LEVEL: 5.0 - 15.0 mg/L VANCOMYCIN HIGH INTENSITY THERAPY TROUGH LEVEL: 15.0 - 20.0 mg/L High Intensity therapy recommended for serious lifethreatening infections include:- Yexmmkqueo-Vqhjxrrsdxxr-Rhylfqgkm (Ventilator/Healtcare Associated)-Sepsis PLEASE CONTACT PHARMACY SERVICES (#[id number]) FOR INTERPRETATIONOF RESULTS. Absolute lymphocyte countOrd ered By: Javy Doss on 05-04-2023 Lymphocytes Auto (Unsp spec) [#/Vol] 1.65 10*3/uL 0.83-4.51 [facility] Bacteria identified Anaer cx Nom (Unsp spec)Ordered By: Abdirizak Forrest on 05-04-2023 Anaerobic Culture Bacteroides fragilis [facility] Bacteria identified Cx Nom ( Wound)Ordered By: Abdirizak Forrest on 05-04-2023 Wound Culture Streptococcus dysgalactiae dys [facility] Routine wound culture Streptococcus dysgalactiae dys [facility] Basophil percentageOrdered B y: Javy Doss on 05-04-2023 Basophil percentage 207 mg/dL 74-106 [facility] Basophil percentage 133 mmol/L 136-145 [facility] Basophil percentage 3.8 mmol/L 3.5-5.1 [facility] Basophil percentage 102 mmol/L 98-107 [facility] Basophil percentage 1.9 mmol/L 0.4-2.0 [facility] Basophils (Bld) [#/Vol] 11.1 10*3/uL 4.4-11.0 [facility] Basophils (Bld) [#/Vol] 8.1 10*3/uL 2.0-7.7 [facility] Basophils/100 WBC (Bld) 73.2 % 47-70 [facility] Basophils/100 WBC (Bld) 0.0 % 0-5 [facility] Basophils/100 WBC (Bld) 0.4 % 0-1 [facility] Lactate [Moles/Vol] 1.9 mmol/L 0.4-2.0 [facility] Blood erythrocytes count (nu mber/volume)Ordered By: Javy Doss on 05-04-2023 RBC (Bld) [#/Vol] 3.68 10*6/uL 4.2-5.4 [facility] Blood hemoglobin measurement (mass/volume)Ordered By: Javy Doss on 05-04-2023 Hemoglobin (Bld) [Mass/Vol] 10.5 g/dL 12.0-15.0 [facility] Blood lymphocytes/100 leukoc ytesOrdered By: Javy Doss on 05-04-2023 Lymphocytes/100 WBC (Bld) 14.9 % 19-41 [facility] Blood monocytes/100 leukocyt esOrdered By: Javy Doss on 05-04-2023 Monocytes/100 WBC (Bld) 10.2 % 0-10 [facility] Blood platelet mean volumeOr dered By: Javy Doss on 05-04-2023 Platelet mean volume (Bld) [Entitic vol] 9.2 fL 6.2-12.0 [facility] Determination of erythrocyte mean corpuscular volume (MCV)Ordered By: Javy Doss on 05-04-2023 MCV (RBC) [Entitic vol] 89.1 fL 81-99 [facility] Erythrocyte sedimentation ra teOrdered By: Abdirizak Forrest on 05-04-2023 ESR (Bld) [Velocity] 88 mm/h 0-30 [facility] Fungus cultureOrdered By: Neva Forrest on 05-04-2023 Fungus identified Cx Nom (Unsp spec) [facility] Fungus stainOrdered By: Jonas Forrest on 05-04-2023 Fungus identified Fungus stain Nom (Unsp spec) [facility] Gram stain for investigation of transfusion reactionOrdered By: Abdirizak Forrest on 05-04-2023 Microscopic observation Gram stain Nom (Unsp spec) [facility] Microscopic observation Gram stain Nom (Unsp spec) [facility] Hematocrit Auto (Bld) [Volum e fraction]Ordered By: Javy Doss on 05-04-2023 Hematocrit (Bld) [Volume fraction] 32.8 % 37-47 [facility] Laboratory - Chemistry and C hemistry - challengeOrdered By: Ronald Hilario on 05-04-2023 HCG ( test) Ql (U) Negative [facility] Comment on above: Very dilute urine sp ecimens, as indicated by a low specificgravity, may not contain signs sales representative levels of hCG. If is still suspected, a first morning urinespecimen should be collected 48 hours later and tested. Laboratory - Microbiology an d Antimicrobial susceptibilityOrdered By: Javy Doss on 05-04-2023 Bacteria identified Cx Nom (Bld) No growth in 5 days. [facility] MCHC Auto (RBC) [Mass/Vol]Or dered By: Javy Doss on 05-04-2023 MCHC (RBC) [Mass/Vol] 32.0 g/dL 32-36 [facility] No Panel InformationOrdered By: Ronald Hilario on 05-04-2023 Negative [facility] No Panel InformationOrdered By: Javy Doss on 05-04-2023 No growth in 5 days. [facility] 28.5 pg 27.0-32.0 [facility] 15.9 % 11.6-14.6 [facility] 52.3 fl 35.1-43.9 [facility] 1.300 % 0.0-0.9 [facility] 0 % 0-5 [facility] 100 mL/min >60 [facility] 121 mL/min >60 [facility] 105.98 ml/min [facility] 12.5 RATIO 10-20 [facility] 27.0 mmol/L 21.0-32.0 [facility] Platelets bldOrdered By: Haylee Doss on 05-04-2023 Platelets (Bld) [#/Vol] 333 10*3/uL 150-450 [facility] Serum or plasma C reactive p rotein measurement (mass/volume)Ordered By: Abdirizak Forrest on 05-04-2023 CRP [Mass/Vol] 117.00 mg/L 0.0-3.0 [facility] Comment on above: C-Reactive Protein ( CRP) provides useful information for thediagnosis, therapy and monitoring of inflammatory processesand associated diseases. For the evaluation of Relative Riskfor Cardiovascular Disease, a High Sensitivity CRP (HSCRP)should be ordered. Serum or plasma calcium hussein urement (mass/volume)Ordered By: Javy Doss on 05-04-2023 Calcium [Mass/Vol] 8.7 mg/dL 8.5-10.1 [facility] Serum or plasma creatinine m easurement (mass/volume)Ordered By: Javy Doss on 05-04-2023 Creatinine [Mass/Vol] 0.72 mg/dL 0.55-1.02 [facility] Serum or plasma urea nitroge n measurement (mass/volume)Ordered By: Javy Romario on 05-04-2023 Urea nitrogen [Mass/Vol] 9 mg/dL 7-18 [facility] Thin prep Papanicolaou smear with manual screeningOrdered By: Javy Romario on 05-04-2023 Thin prep Papanicolaou smear with manual screening 4 5-15 [facility] Whole blood hemoglobin A1c/t otal hemoglobin ratio (mass fraction)Ordered By: Abdirizak Forrest on 05-04-2023 HbA1c (Bld) [Mass fraction] 7.2 % 3.8-5.6 [facility] Comment on above: Normal < 5.7 % Predi abetic 5.7 - 6.4 % Diabetic >or= 6.5 % Please note range changes. Absolute lymphocyte countOrd ered By: Deann Guerrero on 04-14-2023 Lymphocytes Auto (Unsp spec) [#/Vol] 3.05 10*3/uL 0.83-4.51 [facility] Basophil percentageOrdered B y: Deann Guerrero on 04-14-2023 Basophil percentage 179 mg/dL 74-106 [facility] Basophil percentage 8.2 g/dL 6.4-8.2 [facility] Basophil percentage 0.60 mg/dL 0.20-1.00 [facility] Basophil percentage 135 mmol/L 136-145 [facility] Basophil percentage 3.6 mmol/L 3.5-5.1 [facility] Basophil percentage 103 mmol/L 98-107 [facility] Basophils (Bld) [#/Vol] 7.8 10*3/uL 4.4-11.0 [facility] Basophils (Bld) [#/Vol] 4.1 10*3/uL 2.0-7.7 [facility] Basophils/100 WBC (Bld) 52.8 % 47-70 [facility] Basophils/100 WBC (Bld) 0.3 % 0-5 [facility] Basophils/100 WBC (Bld) 0.5 % 0-1 [facility] Bilirubin [Mass/Vol] 0.60 mg/dL 0.20-1.[address] [facility] Comment on above: For patients on eltr ombopag therapy, use of Dimension Harvest TBIL is not recommended. Chloride [Moles/Vol] 103 mmol/L 98-107 [facility] Eosinophils/100 WBC (Bld) 0.3 % 0-5 [facility] Glucose [Mass/Vol] 179 mg/dL 74-106 [facility] Comment on above: Fasting Glucose resu lt greater than or equal to 126 mg/dL suggests DIABETES MELLITUS per A.D.A. criteria. Neutrophils (Bld) [#/Vol] 4.1 10*3/uL 2.0-7.7 [facility] Neutrophils/100 WBC (Bld) 52.8 % 47-70 [facility] Potassium [Moles/Vol] 3.6 mmol/L 3.5-5.1 [facility] Protein [Mass/Vol] 8.2 g/dL 6.4-8.2 [facility] Sodium [Moles/Vol] 135 mmol/L 136-145 [facility] WBC (Bld) [#/Vol] 7.8 10*3/uL 4.4-11.0 [facility] Blood erythrocytes count (nu mber/volume)Ordered By: Deann Guerrero on 04-14-2023 RBC (Bld) [#/Vol] 4.57 10*6/uL 4.2-5.4 [facility] Blood hemoglobin measurement (mass/volume)Ordered By: Deann Guerrero on 04-14-2023 Hemoglobin (Bld) [Mass/Vol] 12.8 g/dL 12.0-15.0 [facility] Blood lymphocytes/100 leukoc ytesOrdered By: Deann Guerrero on 04-14-2023 Lymphocytes/100 WBC (Bld) 39.3 % 19-41 [facility] Blood monocytes/100 leukocyt esOrdered By: Deann Guerrero on 04-14-2023 Monocytes/100 WBC (Bld) 6.1 % 0-10 [facility] Blood platelet mean volumeOr dered By: Deann Guerrero on 04-14-2023 Platelet mean volume (Bld) [Entitic vol] 8.3 fL 6.2-12.0 [facility] Determination of erythrocyte mean corpuscular volume (MCV)Ordered By: Deann Guerrero on 04-14-2023 MCV (RBC) [Entitic vol] 87.7 fL 81-99 [facility] Direct bilirubinOrdered By: Deann Guerrero on 04-14-2023 Bilirubin.direct [Mass/Vol] 0.16 mg/dL 0.00-0.30 [facility] Hematocrit Auto (Bld) [Volum e fraction]Ordered By: Deann Guerrero on 04-14-2023 Hematocrit (Bld) [Volume fraction] 40.1 % 37-47 [facility] Laboratory - Chemistry and C hemistry - challengeOrdered By: Deann Guerrero on 04-14-2023 ALP [Catalytic activity/Vol] 111 U/L 45-117 [facility] ALT [Catalytic activity/Vol] 23 U/L 13-56 [facility] CO2 [Moles/Vol] 25.0 mmol/L 21.0-32.0 [facility] Globulin (S) [Mass/Vol] 5.0 g/dL 2.2-4.2 [facility] Lipase [Catalytic activity/Vol] 80 U/L - [facility] Comment on above: Please note:LIPASE r evised reference range effective 22. New Lipase methodology. Expected to produce lower values than the previous assay method. NEW Reference Range: 13 - 75 U/L Urea nitrogen/Creatinine [Mass ratio] 9.6 mg/mg 10-20 [facility] Laboratory - Hematology and Cell countsOrdered By: Deann Guerrero on 04-14-2023 Erythrocyte distribution width (RBC) [Entitic vol] 48.6 fL 35.1-43.9 [facility] Erythrocyte distribution width (RBC) [Ratio] 16.4 % 11.6-14.6 [facility] Immature granulocytes/100 WBC (Bld) 1.000 % 0.0-0.9 [facility] Comment on above: IG% - Immature Granu locytes (promyelocytes, myelocytes and metamyelocytes) > 1% indicates that a LEFT SHIFT is Present. MCH (RBC) [Entitic mass] 28.0 pg 27.0-32.0 [facility] Nucleated RBC/100 WBC (Bld) [Ratio] 0 % 0-5 [facility] Auto (RBC) [Mass/Vol]Or dered By: Deann Guerrero on 04-14-2023 MCHC (RBC) [Mass/Vol] 31.9 g/dL 32-36 [facility] No Panel InformationOrdered By: Deann Guerrero on 04-14-2023 Estimated Creatinine Clearance Calc 73.37 ml/min [facility] Estimated GFR (MDRD) Amer 79 mL/min >60 [facility] Comment on above: GFR Calc Estimated GFR (MDRD) Non-Af Amer 66 mL/min >60 [facility] Comment on above: Non- GFR Calc 28.0 pg 27.0-32.0 [facility] 16.4 % 11.6-14.6 [facility] 48.6 fl 35.1-43.9 [facility] 1.000 % 0.0-0.9 [facility] 0 % 0-5 [facility] 66 mL/min >60 [facility] 79 mL/min >60 [facility] 73.37 ml/min [facility] 9.6 RATIO 10-20 [facility] 5.0 g/dL 2.2-4.2 [facility] 80 U/L 13-75 [facility] 111 U/L 45-117 [facility] 23 U/L 13-56 [facility] 25.0 mmol/L 21.0-32.0 [facility] Platelets bldOrdered By: Sulema Guerrero on 04-14-2023 Platelets (Bld) [#/Vol] 565 10*3/uL 150-450 [facility] Serum or plasma albumin hussein urement (mass/volume)Ordered By: Deann Guerrero on 04-14-2023 Albumin [Mass/Vol] 3.2 g/dL 3.2-5.0 [facility] Serum or plasma calcium hussein urement (mass/volume)Ordered By: Deann Guerrero on 04-14-2023 Calcium [Mass/Vol] 9.5 mg/dL 8.5-10.1 [facility] Serum or plasma creatinine m easurement (mass/volume)Ordered By: Deann Guerrero on 04-14-2023 Creatinine [Mass/Vol] 1.04 mg/dL 0.55-1.02 [facility] Comment on above: The validity of the calculated GFR & GFRAA in patients over 70 years has not been determined. Clinical correlation is essential. Serum or plasma urea nitroge n measurement (mass/volume)Ordered By: Deann Guerrero on 04-14-2023 Urea nitrogen [Mass/Vol] 10 mg/dL 7-18 [facility] Thin prep Papanicolaou smear with manual screeningOrdered By: Deann Guerrero on 04-14-2023 Thin prep Papanicolaou smear with manual screening 13 U/L 15-37 [facility] Thin prep Papanicolaou smear with manual screening 7 5-15 [facility] Absolute lymphocyte countOrd ered By: Poli Barfield on 04-13-2023 Lymphocytes Auto (Unsp spec) [#/Vol] 3.04 10*3/uL 0.83-4.51 [facility] Basophil percentageOrdered B y: Poli Barfield on 04-13-2023 Basophil percentage 280 mg/dL 74-106 [facility] Basophil percentage 7.8 g/dL 6.4-8.2 [facility] Basophil percentage 0.60 mg/dL 0.20-1.00 [facility] Basophil percentage 132 mmol/L 136-145 [facility] Basophil percentage 4.0 mmol/L 3.5-5.1 [facility] Basophil percentage 100 mmol/L 98-107 [facility] Basophils (Bld) [#/Vol] 8.7 10*3/uL 4.4-11.0 [facility] Basophils (Bld) [#/Vol] 5.1 10*3/uL 2.0-7.7 [facility] Basophils/100 WBC (Bld) 58.8 % 47-70 [facility] Basophils/100 WBC (Bld) 0.1 % 0-5 [facility] Basophils/100 WBC (Bld) 0.6 % 0-1 [facility] Bilirubin [Mass/Vol] 0.60 mg/dL 0.20-1.00 [facility] Comment on above: For patients on eltr ombopag therapy, use of Dimension Harvest TBIL is not recommended. Chloride [Moles/Vol] 100 mmol/L 98-107 [facility] Eosinophils/100 WBC (Bld) 0.1 % 0-5 [facility] Glucose [Mass/Vol] 280 mg/dL 74-106 [facility] Comment on above: Glucose result great er than or equal to 200 mg/dLsuggests DIABETES MELLITUS per A.D.A. criteria. Neutrophils (Bld) [#/Vol] 5.1 10*3/uL 2.0-7.7 [facility] Neutrophils/100 WBC (Bld) 58.8 % 47-70 [facility] Potassium [Moles/Vol] 4.0 mmol/L 3.5-5.1 [facility] Protein [Mass/Vol] 7.8 g/dL 6.4-8.2 [facility] Sodium [Moles/Vol] 132 mmol/L 136-145 [facility] WBC (Bld) [#/Vol] 8.7 10*3/uL 4.4-11.0 [facility] Beta hCG serum qualOrdered B y: Poli Barfield on 04-13-2023 Beta HCG ( test) Ql Negative [facility] Blood erythrocytes count (nu mber/volume)Ordered By: Poli Barfield on 04-13-2023 RBC (Bld) [#/Vol] 4.42 10*6/uL 4.2-5.4 [facility] Blood hemoglobin measurement (mass/volume)Ordered By: Poli Barfield on 04-13-2023 Hemoglobin (Bld) [Mass/Vol] 12.6 g/dL 12.0-15.0 [facility] Blood lymphocytes/100 leukoc ytesOrdered By: Poli Barfield on 04-13-2023 Lymphocytes/100 WBC (Bld) 35.1 % 19-41 [facility] Blood monocytes/100 leukocyt esOrdered By: Poli Barfield on 04-13-2023 Monocytes/100 WBC (Bld) 4.6 % 0-10 [facility] Blood platelet mean volumeOr dered By: Poli Barfield on 04-13-2023 Platelet mean volume (Bld) [Entitic vol] 8.3 fL 6.2-12.0 [facility] Determination of erythrocyte mean corpuscular volume (MCV)Ordered By: Poli Barfield on 04-13-2023 MCV (RBC) [Entitic vol] 87.3 fL 81-99 [facility] Hematocrit Auto (Bld) [Volum e fraction]Ordered By: Poli Barfield on 04-13-2023 Hematocrit (Bld) [Volume fraction] 38.6 % 37-47 [facility] Laboratory - Chemistry and C hemistry - challengeOrdered By: Poli Barfield on 04-13-2023 ALP [Catalytic activity/Vol] 114 U/L 45-117 [facility] ALT [Catalytic activity/Vol] 23 U/L 13-56 [facility] CO2 [Moles/Vol] 24.0 mmol/L 21.0-32.0 [facility] Globulin (S) [Mass/Vol] 4.8 g/dL 2.2-4.2 [facility] Lipase [Catalytic activity/Vol] 98 U/L 13-75 [facility] Comment on above: Please note:LIPASE r evised reference range effective 22. New Lipase methodology. Expected to produce lower values than the previous assay method. NEW Reference Range: 13 - 75 U/L Urea nitrogen/Creatinine [Mass ratio] 9.4 mg/mg 10-20 [facility] Laboratory - Hematology and Cell countsOrdered By: Poli Barfield on 04-13-2023 Erythrocyte distribution width (RBC) [Entitic vol] 47.7 fL 35.1-43.9 [facility] Erythrocyte distribution width (RBC) [Ratio] 16.6 % 11.6-14.6 [facility] Immature granulocytes/100 WBC (Bld) 0.800 % 0.0-0.9 [facility] Comment on above: IG% - Immature Granu locytes (promyelocytes, myelocytes and metamyelocytes) > 1% indicates that a LEFT SHIFT is Present. MCH (RBC) [Entitic mass] 28.5 pg 27.0-32.0 [facility] Nucleated RBC/100 WBC (Bld) [Ratio] 0 % 0-5 [facility] MCHC Auto (RBC) [Mass/Vol]Or dered By: Poli Barfield on 04-13-2023 MCHC (RBC) [Mass/Vol] 32.6 g/dL 32-36 [facility] No Panel InformationOrdered By: Poli Barfield on 04-13-2023 Estimated Creatinine Clearance Calc 59.62 ml/min [facility] Estimated GFR (MDRD) Amer 63 mL/min >60 [facility] Comment on above: GFR Calc Estimated GFR (MDRD) Non-Af Amer 52 mL/min >60 [facility] Comment on above: Non- GFR Calc 28.5 pg 27.0-32.0 [facility] 16.6 % 11.6-14.6 [facility] 47.7 fl 35.1-43.9 [facility] 0.800 % 0.0-0.9 [facility] 0 % 0-5 [facility] 52 mL/min >60 [facility] 63 mL/min >60 [facility] 59.62 ml/min [facility] 9.4 RATIO 10-20 [facility] 4.8 g/dL 2.2-4.2 [facility] 98 U/L 13-75 [facility] 114 U/L 45-117 [facility] 23 U/L 13-56 [facility] 24.0 mmol/L 21.0-32.0 [facility] Platelets bldOrdered By: Devon Barfield on 04-13-2023 Platelets (Bld) [#/Vol] 542 10*3/uL 150-450 [facility] Serum or plasma albumin hussein urement (mass/volume)Ordered By: Poli Barfield on 04-13-2023 Albumin [Mass/Vol] 3.0 g/dL 3.2-5.0 [facility] Serum or plasma albumin/glob ulin mass ratioOrdered By: Poli Barfield on 04-13-2023 Albumin/Globulin [Mass ratio] 0.6 {ratio} 0.9-2.4 [facility] Serum or plasma calcium hussein urement (mass/volume)Ordered By: Poli Barfield on 04-13-2023 Calcium [Mass/Vol] 9.5 mg/dL 8.5-10.1 [facility] Serum or plasma creatinine m easurement (mass/volume)Ordered By: Poli Barfield on 04-13-2023 Creatinine [Mass/Vol] 1.28 mg/dL 0.55-1.02 [facility] Comment on above: The validity of the calculated GFR & GFRAA in patients over 70 years has not been determined. Clinical correlation is essential. Serum or plasma urea nitroge n measurement (mass/volume)Ordered By: Poli Barfield on 04-13-2023 Urea nitrogen [Mass/Vol] 12 mg/dL 7-18 [facility] Thin prep Papanicolaou smear with manual screeningOrdered By: Poli Barfield on 04-13-2023 Thin prep Papanicolaou smear with manual screening 17 U/L 15-37 [facility] Thin prep Papanicolaou smear with manual screening 8 5-15 [facility] Absolute lymphocyte countOrd ered By: Rickey Shepard on 03-06-2023 Lymphocytes Auto (Unsp spec) [#/Vol] 3.14 10*3/uL 0.83-4.51 [facility] Basophil percentageOrdered B y: Rickey Shepard on 03-06-2023 Basophil percentage 215 mg/dL 74-106 [facility] Basophil percentage 8.4 g/dL 6.4-8.2 [facility] Basophil percentage 0.50 mg/dL 0.20-1.00 [facility] Basophil percentage 134 mmol/L 136-145 [facility] Basophil percentage 3.1 mmol/L 3.5-5.1 [facility] Basophil percentage 101 mmol/L 98-107 [facility] Basophil percentage 2.2 mmol/L 0.4-2.0 [facility] Basophils (Bld) [#/Vol] 10.9 10*3/uL 4.4-11.0 [facility] Basophils (Bld) [#/Vol] 6.9 10*3/uL 2.0-7.7 [facility] Basophils/100 WBC (Bld) 62.8 % 47-70 [facility] Basophils/100 WBC (Bld) 0.2 % 0-5 [facility] Basophils/100 WBC (Bld) 0.4 % 0-1 [facility] Bilirubin [Mass/Vol] 0.50 mg/dL 0.20-1.00 [facility] Comment on above: For patients on eltr ombopag therapy, use of Dimension Harvest TBIL is not recommended. Chloride [Moles/Vol] 101 mmol/L 98-107 [facility] Eosinophils/100 WBC (Bld) 0.2 % 0-5 [facility] Glucose [Mass/Vol] 215 mg/dL 74-106 [facility] Comment on above: Glucose result great er than or equal to 200 mg/dLsuggests DIABETES MELLITUS per A.D.A. criteria. Lactate [Moles/Vol] 2.2 mmol/L 0.4-2.0 [facility] Comment on above: Critical Result(s) C alled at: 09:58:40 03/06/2023 by: Gayathri Wilhelm. Results read back by same. Neutrophils (Bld) [#/Vol] 6.9 10*3/uL 2.0-7.7 [facility] Neutrophils/100 WBC (Bld) 62.8 % 47-70 [facility] Potassium [Moles/Vol] 3.1 mmol/L 3.5-5.1 [facility] Protein [Mass/Vol] 8.4 g/dL 6.4-8.2 [facility] Sodium [Moles/Vol] 134 mmol/L 136-145 [facility] WBC (Bld) [#/Vol] 10.9 10*3/uL 4.4-11.0 [facility] Basophil percentage 0 SEEN /hpf 0-5 [facility] Bilirubin Test strip Ql (U)O rdered By: Rickey Shpeard on 03-06-2023 Bilirubin Ql (U) Negative Negative [facility] Blood erythrocytes count (nu mber/volume)Ordered By: Rickey Shepard on 03-06-2023 RBC (Bld) [#/Vol] 4.33 10*6/uL 4.2-5.4 [facility] Blood hemoglobin measurement (mass/volume)Ordered By: Rickey Shepard on 03-06-2023 Hemoglobin (Bld) [Mass/Vol] 11.5 g/dL 12.0-15.0 [facility] Blood lymphocytes/100 leukoc ytesOrdered By: Rickey Shepard on 03-06-2023 Lymphocytes/100 WBC (Bld) 28.8 % 19-41 [facility] Blood monocytes/100 leukocyt esOrdered By: Rickey Shepard on 03-06-2023 Monocytes/100 WBC (Bld) 7.2 % 0-10 [facility] Blood platelet mean volumeOr dered By: Rickey Shepard on 03-06-2023 Platelet mean volume (Bld) [Entitic vol] 9.2 fL 6.2-12.0 [facility] Determination of erythrocyte mean corpuscular volume (MCV)Ordered By: Rickey Shepard on 03-06-2023 MCV (RBC) [Entitic vol] 82.7 fL 81-99 [facility] Hematocrit Auto (Bld) [Volum e fraction]Ordered By: Rickey Shepard on 03-06-2023 Hematocrit (Bld) [Volume fraction] 35.8 % 37-47 [facility] INR in Blood by Coagulation assayOrdered By: Rickey Shepard on 03-06-2023 INR Coag (Bld) [Relative time] 1.2 {INR} [facility] Ketones Test strip Ql (U)Ord ered By: Rickey Shpeard on 03-06-2023 Ketones Ql (U) Negative Negative [facility] Laboratory - Chemistry and C hemistry - challengeOrdered By: Rickey Shepard on 03-06-2023 ALP [Catalytic activity/Vol] 109 U/L 45-117 [facility] ALT [Catalytic activity/Vol] 13 U/L 13-56 [facility] CO2 [Moles/Vol] 25.0 mmol/L 21.0-32.0 [facility] Globulin (S) [Mass/Vol] 5.2 g/dL 2.2-4.2 [facility] Lipase [Catalytic activity/Vol] 59 U/L 13-75 [facility] Comment on above: Please note:LIPASE r evised reference range effective 22. New Lipase methodology. Expected to produce lower values than the previous assay method. NEW Reference Range: 13 - 75 U/L Urea nitrogen/Creatinine [Mass ratio] 4.0 mg/mg 10-20 [facility] Laboratory - CoagulationOrde red By: Rickey Shepard on 03-06-2023 aPTT Coag (Bld) [Time] 28.8 s 24.1-36.2 [facility] PT Coag (PPP) [Time] 14.8 s 11.7-14.9 [facility] Laboratory - Hematology and Cell countsOrdered By: Rickey Shepard on 03-06-2023 Erythrocyte distribution width (RBC) [Entitic vol] 41.1 fL 35.1-43.9 [facility] Erythrocyte distribution width (RBC) [Ratio] 13.6 % 11.6-14.6 [facility] Immature granulocytes/100 WBC (Bld) 0.600 % 0.0-0.9 [facility] Comment on above: IG% - Immature Granu locytes (promyelocytes, myelocytes and metamyelocytes) > 1% indicates that a LEFT SHIFT is Present. MCH (RBC) [Entitic mass] 26.6 pg 27.0-32.0 [facility] Nucleated RBC/100 WBC (Bld) [Ratio] 0 % 0-5 [facility] MCHC Auto (RBC) [Mass/Vol]Or dered By: Rickey Shepard on 03-06-2023 MCHC (RBC) [Mass/Vol] 32.1 g/dL 32-36 [facility] Mucus LM Ql (Urine sed)Order ed By: Rickey Shepard on 03-06-2023 Mucus Ql (Urine sed) 0 SEEN /hpf [facility] Nitrite Test strip Ql (U)Ord ered By: Rickey Shepard on 03-06-2023 Nitrite Ql (U) Negative Negative [facility] No Panel InformationOrdered By: Rickey Shepard on 03-06-2023 Estimated Creatinine Clearance Calc 75.55 ml/min [facility] Estimated GFR (MDRD) Amer 82 mL/min >60 [facility] Comment on above: GFR Calc Estimated GFR (MDRD) Non-Af Amer 68 mL/min >60 [facility] Comment on above: Non- GFR Calc 26.6 pg 27.0-32.0 [facility] 13.6 % 11.6-14.6 [facility] 41.1 fl 35.1-43.9 [facility] 0.600 % 0.0-0.9 [facility] 0 % 0-5 [facility] 14.8 SECONDS 11.7-14.9 [facility] 28.8 Seconds 24.1-36.2 [facility] 68 mL/min >60 [facility] 82 mL/min >60 [facility] 75.55 ml/min [facility] 4.0 RATIO 10-20 [facility] 5.2 g/dL 2.2-4.2 [facility] 59 U/L 13-75 [facility] 109 U/L 45-117 [facility] 13 U/L 13-56 [facility] 25.0 mmol/L 21.0-32.0 [facility] Platelets bldOrdered By: Ivy Shepard on 03-06-2023 Platelets (Bld) [#/Vol] 412 10*3/uL 150-450 [facility] Protein Test strip Ql (U)Ord ered By: Rickey Shepard on 03-06-2023 Protein Ql (U) 30 mg/dl Negative [facility] Serum or plasma acetone hussein urement (mass/volume)Ordered By: Rickey Shepard on 03-06-2023 Acetone [Mass/Vol] Negative NEG [facility] Serum or plasma albumin hussein urement (mass/volume)Ordered By: Rickey Shepard on 03-06-2023 Albumin [Mass/Vol] 3.2 g/dL 3.2-5.0 [facility] Serum or plasma albumin/glob ulin mass ratioOrdered By: Rickey Shepard on 03-06-2023 Albumin/Globulin [Mass ratio] 0.6 {ratio} 0.9-2.4 [facility] Serum or plasma calcium hussein urement (mass/volume)Ordered By: Rickey Shepard on 03-06-2023 Calcium [Mass/Vol] 9.3 mg/dL 8.5-10.1 [facility] Serum or plasma creatinine m easurement (mass/volume)Ordered By: Rickey Shepard on 03-06-2023 Creatinine [Mass/Vol] 1.01 mg/dL 0.55-1.02 [facility] Comment on above: The validity of the calculated GFR & GFRAA in patients over 70 years has not been determined. Clinical correlation is essential. Serum or plasma urea nitroge n measurement (mass/volume)Ordered By: Rickey Shepard on 03-06-2023 Urea nitrogen [Mass/Vol] 4 mg/dL 7-18 [facility] Squamous epithelial cells de tection in urine sediment by light microscopyOrdered By: Rickey Shepard on 03-06-2023 Epithelial cells.squamous LM Ql (Urine sed) 0-5 SEEN /hpf 5-10 [facility] Thin prep Papanicolaou smear with manual screeningOrdered By: Rickey Shepard on 03-06-2023 Thin prep Papanicolaou smear with manual screening 7 U/L 15-37 [facility] Thin prep Papanicolaou smear with manual screening 8 5-15 [facility] Urine blood detectionOrdered By: Rickey Shepard on 03-06-2023 RBC Ql (U) 10 /ul Negative [facility] RBC Ql (U) 0 SEEN /hpf 0-5 [facility] Urine clarityOrdered By: Ivy Shepard on 03-06-2023 Clarity (U) Clear Clear [facility] Urine color determinationOrd ered By: Rickey Shepard on 03-06-2023 Color (U) Yellow Yellow [facility] Urine glucose detectionOrder ed By: Rickey Shepard on 03-06-2023 Glucose Ql (U) 100 mg/dl Normal [facility] Urine leukocyte esterase det ection by dipstickOrdered By: Rickey Shepard on 03-06-2023 Leukocyte esterase Test strip Ql (U) 25 /ul Negative [facility] Urine pHOrdered By: Rickey webb on 03-06-2023 pH (U) 7.0 [pH] 5.0 - 8.0 [facility] Urine sediment bacteria coun t by microscopy (number/high power field)Ordered By: Rickey Shepard on 03-06-2023 Bacteria LM.HPF (Urine sed) [#/Area] RARE /hpf None Seen [facility] Urine specific gravity measu rementOrdered By: Rickey Shepard on 03-06-2023 Specific gravity (U) [Rel density] 1.010 1.002-1.030 [facility] Urobilinogen Auto test strip Ql (U)Ordered By: Rickey Shepard on 03-06-2023 Urobilinogen Ql (U) Normal mg/dl Normal [facility] Basic metabolic 2000 panelon 03-04-2023 Anion gap [Moles/Vol] 14 mmol/L Normal 9-18 [facility] Comment on above: Order Comment: Speci men Type: BLOOD SPECIMENOrdering Facility: [facility] Address: [address] [address] Performed By: #### 2 4321-2 ####[facility] LABORATORYCLIA [id number] [place] [id number] [place] Calcium [Mass/Vol] 8.9 mg/dL Normal 8.5-10.2 [facility] Comment on above: Order Comment: Speci men Type: BLOOD SPECIMENOrdering Facility: [facility] Address: [address] [place] [address] Performed By: #### 2 4321-2 ####[facility] LABORATORYCLIA [id number] [place] [address] [place] Chloride [Moles/Vol] 102 mmol/L Normal 97-105 [facility] Comment on above: Order Comment: Speci men Type: BLOOD SPECIMENOrdering Facility: [facility] Address: [address] [place] [address] Performed By: #### 2 4321-2 ####[facility] LABORATORYCLIA [id number] [place] [address] [place] CO2 [Moles/Vol] 21 mmol/L Low 22-30 [facility] Comment on above: Order Comment: Speci men Type: BLOOD SPECIMENOrdering Facility: [facility] Address: [address] [place] [address] Performed By: #### 2 4321-2 ####[facility] LABORATORYCLIA [id number] [place] [address] [place] Creatinine [Mass/Vol] 0.78 mg/dL Normal 0.58-0.96 [facility] Comment on above: Order Comment: Speci men Type: BLOOD SPECIMENOrdering Facility: [facility] Address: [address] [place] [address] Performed By: #### 2 4321-2 ####[facility] LABORATORYCLIA [id number] [place] [address] [place] Creatinine and Glomerular filtration rate.predicted panel (S/P/Bld) 104 mL/min/1.73m??? Normal >=60 [facility] Comment on above: Order Comment: Mahogany vargas Type: BLOOD SPECIMENOrdering Facility: [facility] Address: [address] [place] [address] Result Comment: Samreen mated Glomerular Filtration Rate [...] actual GFR. Performed By: #### 2 4321-2 ####[facility] LABORATORYCLIA [id number] [place] [address] [place] Glucose [Mass/Vol] 158 mg/dL High 74-99 [facility] Comment on above: Order Comment: Mahogany vargas Type: BLOOD SPECIMENOrdering Facility: [facility] Address: [address] [place] [address] Result Comment: The [place] [employer] (ADA) provides guidance for cutoff [...] Standards of Medical Care in Diabetes 2016, [place] [employer]. Diabetes Care. 2016.39(Suppl 1). Performed By: #### 2 4321-2 ####[facility] LABORATORYCLIA [id number] [place] [id number] [place] Potassium [Moles/Vol] 3.3 mmol/L Low 3.7-5.1 [facility] Comment on above: Order Comment: Mahogany vargas Type: BLOOD SPECIMENOrdering Facility: [facility] Address: [address] [address] Performed By: #### 2 4321-2 ####[facility] LABORATORYCLIA [id number] [address] [place] [facility] Sodium [Moles/Vol] 137 mmol/L Normal 136-144 [facility] Comment on above: Order Comment: Speci men Type: BLOOD SPECIMENOrdering Facility: [facility] Address: [address] [address] Performed By: #### 2 4321-2 ####[facility] LABORATORYCLIA [id number] [address] [place] Urea nitrogen [Mass/Vol] 4 mg/dL Low 7-21 [facility] Comment on above: Order Comment: Speci men Type: BLOOD SPECIMENOrdering Facility: [facility] Address: [address] [address] Performed By: #### 2 4321-2 ####[facility] LABORATORYCLIA [id number] [address] CBC panel Auto (Bld)on 03-04 Erythrocyte distribution width (RBC) [Ratio] 13.5 % Normal 11.5-15.0 [facility] Comment on above: Order Comment: Speci men Type: BLOOD SPECIMENOrdering Facility: [facility] Address: [address] [address] Performed By: #### 5 8410-2 ####[facility] LABORATORYCLIA [id number] [address] Hematocrit (Bld) [Volume fraction] 34.2 % Low 36.0-46.0 [facility] Comment on above: Order Comment: Speci men Type: BLOOD SPECIMENOrdering Facility: [facility] Address: [address] [address] Performed By: #### 5 8410-2 ####[facility] LABORATORYCLIA [id number] [address] [place] Hemoglobin (Bld) [Mass/Vol] 11.5 g/dL Normal 11.5-15.5 [facility] Comment on above: Order Comment: Speci men Type: BLOOD SPECIMENOrdering Facility: [facility] Address: [address] [place] [address] Performed By: #### 5 8410-2 ####[facility] LABORATORYCLIA [id number] [address] [place] MCH (RBC) [Entitic mass] 27.4 pg Normal 26.0-34.0 [facility] Comment on above: Order Comment: Speci men Type: BLOOD SPECIMENOrdering Facility: [facility] Address: [address] [place] [address] Performed By: #### 5 8410-2 ####[facility] LABORATORYCLIA [id number] [place] [address] [place] MCHC (RBC) [Mass/Vol] 33.6 g/dL Normal 30.5-36.0 [facility] Comment on above: Order Comment: Speci men Type: BLOOD SPECIMENOrdering Facility: [facility] Address: [address] [place] [address] Performed By: #### 5 8410-2 ####[facility] LABORATORYCLIA [id number] [address] [place] MCV (RBC) [Entitic vol] 81.6 fL Normal 80.0-100.0 [facility] Comment on above: Order Comment: Speci men Type: BLOOD SPECIMENOrdering Facility: [facility] Address: [address] [place] [address] Performed By: #### 5 8410-2 ####[facility] LABORATORYCLIA [id number] [address] [place] Nucleated RBC (Bld) [#/Vol] 10*3/uL Normal <0.01 [facility] Comment on above: Order Comment: Speci men Type: BLOOD SPECIMENOrdering Facility: [facility] Address: [address] [place] [address] Performed By: #### 5 8410-2 ####[facility] LABORATORYCLIA [id number] [place] [id number] [place] Platelet mean volume (Bld) [Entitic vol] 9.3 fL Normal 9.0-12.7 [facility] Comment on above: Order Comment: Speci men Type: BLOOD SPECIMENOrdering Facility: [facility] Address: [address] [place] [address] Performed By: #### 5 8410-2 ####[facility] LABORATORYCLIA [id number] [place] [address] [place] Platelets (Bld) [#/Vol] 362 10*3/uL Normal 150-400 [facility] Comment on above: Order Comment: Speci men Type: BLOOD SPECIMENOrdering Facility: [facility] Address: [address] [place] [address] Performed By: #### 5 8410-2 ####[facility] LABORATORYCLIA [id number] [place] [address] [place] RBC (Bld) [#/Vol] 4.19 10*6/uL Normal 3.90-5.20 [facility] Comment on above: Order Comment: Speci men Type: BLOOD SPECIMENOrdering Facility: [facility] Address: [address] [place] [address] Performed By: #### 5 8410-2 ####[facility] LABORATORYCLIA [id number] [place] [address] [place] WBC (Bld) [#/Vol] 10.19 10*3/uL Normal 3.70-11.00 [facility] Comment on above: Order Comment: Speci men Type: BLOOD SPECIMENOrdering Facility: [facility] Address: [address] [place] [address] Performed By: #### 5 8410-2 ####[facility] LABORATORYCLIA [id number] [place] [id number] [place] CNDSon 03-04-2023 CNDS HNO ID: [id number] Author: Saida Lopez MD Service: ? Author [...] office evaluation. She was not evaluated by ssas developer. Vomiting too frequent to count and constant [...] was prescribed stool softeners and laxatives during [facility] stay however she refuses to take [...] to discharge in AM. Discussed with social work professor/bilingual case manager. Advance diet. PLAN 03/04/23: Hemodynamically is stable. Has been walking a lot. Gets anxious. Seen by psych and GI. Discussed with social work professor/bilingual case manager. OK to discharge the patient. Rest of management as outpatient. I personally spent more than 30 minutes for discharge of this patient. Discussed with unit PA/[employer]ER about care plans. Recommended to see her psychiatrist as outpatient. Has had high BP readings. Will add Losartan. Is diabetic too.. Vitals and labs were closely monitored and evaluated while hospitalized. Electrolytes were replaced as needed. Patient is stable for discharge home today. Patient should follow up with primary care physician (Amy Solorzano: [phone]) in 7-10 days for hospital follow up. [...] Home/Self Care A (more content not included)... [facility] NURSING PROGon 03-04-2023 NURSING PROG HNO ID: [id number] Author: Shiloh Carl, RYNE Service: Nursing Author [...] given. Pt left stable. Due care given. [facility] NURSING PROG HNO ID: [id number] Author: Hilda Dunlap RN Service: ? Author Type: Registered Nurse Type: Nursing Progress Note Filed: 03/04/2023 3:31 PM Note Text: 0725: Assumed patient care at this time. Safety maintained. 1600: Discharge instructions completed at this time. IV removed. Safety maintained. Belongings with patient. Patient has no needs at this time. Normal [facility] Basic metabolic 2000 panelon 03-03-2023 Anion gap [Moles/Vol] 12 mmol/L Normal 9-18 [facility] Comment on above: Order Comment: Mahogany vargas Type: BLOOD SPECIMENOrdering Facility: [facility] Address: [address] [place] [address] Performed By: #### 2 4321-2 ####[facility] LABORATORYCLIA [id number] [place] [address] [place] Calcium [Mass/Vol] 9.3 mg/dL Normal 8.5-10.2 [facility] Comment on above: Order Comment: Mahogany vargas Type: BLOOD SPECIMENOrdering Facility: [facility] Address: [address] [place] [address] Performed By: #### 2 4321-2 ####[facility] LABORATORYCLIA [id number] [place] [address] [place] Chloride [Moles/Vol] 103 mmol/L Normal 97-105 [facility] Comment on above: Order Comment: Speci men Type: BLOOD SPECIMENOrdering Facility: [facility] Address: [address] [place] [address] Performed By: #### 2 4321-2 ####[facility] LABORATORYCLIA [id number] [place] [address] [place] CO2 [Moles/Vol] 24 mmol/L Normal 22-30 [facility] Comment on above: Order Comment: Speci men Type: BLOOD SPECIMENOrdering Facility: [facility] Address: [address] [place] [address] Performed By: #### 2 4321-2 ####[facility] LABORATORYCLIA [id number] [address] STATES OF [facility] Creatinine [Mass/Vol] 0.87 mg/dL Normal 0.58-0.96 [facility] Comment on above: Order Comment: Speci men Type: BLOOD SPECIMENOrdering Facility: [facility] Address: [address] [place] [address] Performed By: #### 2 4321-2 ####[facility] LABORATORYCLIA [id number] [address] Creatinine and Glomerular filtration rate.predicted panel (S/P/Bld) 91 mL/min/1.73m??? Normal >=60 [facility] Comment on above: Order Comment: Speci men Type: BLOOD SPECIMENOrdering Facility: [facility] Address: [address] [place] [address] Result Comment: Samreen mated Glomerular Filtration Rate [...] GFR. Performed By: #### 2 4321-2 ####[facility] LABORATORYCLIA [id number] [place] [address] [place] Glucose [Mass/Vol] 137 mg/dL High 74-99 [facility] Comment on above: Order Comment: Mahogany vargas Type: BLOOD SPECIMENOrdering Facility: [facility] Address: [address] [place] [address] Result Comment: The [place] Diabetes Association (ADA) provides guidance for cutoff [...] Standards of Medical Care in Diabetes 2016, [place] [employer]. Diabetes Care. 2016.39(Suppl 1). Performed By: #### 2 4321-2 ####[facility] LABORATORYCLIA [id number] [place] [address] [place] Potassium [Moles/Vol] 3.5 mmol/L Low 3.7-5.1 [facility] Comment on above: Order Comment: Mahogany alicia Type: BLOOD SPECIMENOrdering Facility: [facility] Address: [address] [place] [address] Performed By: #### 2 4321-2 ####[facility] LABORATORYCLIA [id number] [place] [address] [place] Sodium [Moles/Vol] 139 mmol/L Normal 136-144 [facility] Comment on above: Order Comment: Mahogany vargas Type: BLOOD SPECIMENOrdering Facility: [facility] Address: [address] [place] [address] Performed By: #### 2 4321-2 ####[facility] LABORATORYCLIA [id number] [place] [address] [place] Urea nitrogen [Mass/Vol] 6 mg/dL Low 7-21 [facility] Comment on above: Order Comment: Speci men Type: BLOOD SPECIMENOrdering Facility: [facility] Address: [address] [address] Performed By: #### 2 4321-2 ####[facility] LABORATORYCLIA [id number] [place] [address] [place] CBC panel Auto (Bld)on 03-03 Erythrocyte distribution width (RBC) [Ratio] 13.2 % Normal 11.5-15.0 [facility] Comment on above: Order Comment: Speci men Type: BLOOD SPECIMENOrdering Facility: [facility] Address: [address] [place] [address] Performed By: #### 5 8410-2 ####[facility] LABORATORYCLIA [id number] [address] [place] Hematocrit (Bld) [Volume fraction] 36.1 % Normal 36.0-46.0 [facility] Comment on above: Order Comment: Speci men Type: BLOOD SPECIMENOrdering Facility: [facility] Address: [address] [place] [address] Performed By: #### 5 8410-2 ####[facility] LABORATORYCLIA [id number] [address] [place] Hemoglobin (Bld) [Mass/Vol] 12.2 g/dL Normal 11.5-15.5 [facility] Comment on above: Order Comment: Speci men Type: BLOOD SPECIMENOrdering Facility: [facility] Address: [address] [place] [address] Performed By: #### 5 8410-2 ####[facility] LABORATORYCLIA [id number] [address] [place] MCH (RBC) [Entitic mass] 27.4 pg Normal 26.0-34.0 [facility] Comment on above: Order Comment: Speci men Type: BLOOD SPECIMENOrdering Facility: [facility] Address: [address] [place] [address] Performed By: #### 5 8410-2 ####[facility] LABORATORYCLIA [id number] [place] [address] [place] MCHC (RBC) [Mass/Vol] 33.8 g/dL Normal 30.5-36.0 [facility] Comment on above: Order Comment: Speci men Type: BLOOD SPECIMENOrdering Facility: [facility] Address: [address] [place] [address] Performed By: #### 5 8410-2 ####[facility] LABORATORYCLIA [id number] [place] [address] [place] MCV (RBC) [Entitic vol] 81.1 fL Normal 80.0-100.0 [facility] Comment on above: Order Comment: Speci men Type: BLOOD SPECIMENOrdering Facility: [facility] Address: [address] [place] [address] Performed By: #### 5 8410-2 ####[facility] LABORATORYCLIA [id number] [place] [address] [place] Nucleated RBC (Bld) [#/Vol] 10*3/uL Normal <0.01 [facility] Comment on above: Order Comment: Speci men Type: BLOOD SPECIMENOrdering Facility: [facility] Address: [address] [place] [address] Performed By: #### 5 8410-2 ####[facility] LABORATORYCLIA [id number] [place] [address] [place] Platelet mean volume (Bld) [Entitic vol] 9.0 fL Normal 9.0-12.7 [facility] Comment on above: Order Comment: Speci men Type: BLOOD SPECIMENOrdering Facility: [facility] Address: [address] [place] [address] Performed By: #### 5 8410-2 ####[facility] LABORATORYCLIA [id number] [place] [address] [place] Platelets (Bld) [#/Vol] 397 10*3/uL Normal 150-400 [facility] Comment on above: Order Comment: Speci men Type: BLOOD SPECIMENOrdering Facility: [facility] Address: [address] [place] [address] Performed By: #### 5 8410-2 ####[facility] LABORATORYCLIA [id number] [address] RBC (Bld) [#/Vol] 4.45 10*6/uL Normal 3.90-5.20 [facility] Comment on above: Order Comment: Speci men Type: BLOOD SPECIMENOrdering Facility: [facility] Address: [address] [place] [address] Performed By: #### 5 8410-2 ####[facility] LABORATORYCLIA [id number] [address] WBC (Bld) [#/Vol] 13.15 10*3/uL High 3.70-11.00 [facility] Comment on above: Order Comment: Speci men Type: BLOOD SPECIMENOrdering Facility: [facility] Address: [address] [place] [address] Performed By: #### 5 8410-2 ####[facility]FIELDIA [id number] [address] CONSULTon 03-03-2023 CONSULT HNO ID: [id number] Author: Cayetano Tai MD Service: Psychiatry Author [...] admitted with intractable vomiting. She is from [place], [place] and was in [place] for a GI appointment and was sent [...] DATE: March 03, 2023 TIME: 3:03 PM [facility] CT ABD/PEL W IVCONon 03-03-[address] ABD/PEL W IVCON * * *Final Report* * * DATE OF EXAM: Mar 03 2023 11:01AM [facility] 0530 - CT ABD/PEL W IVCON / [...] on Mar 03 2023 11:11AM EST [id number] [facility] NURSING PROGon 03-03-2023 NURSING PROG HNO ID: [id number] Author: Anayeli Blue RN Service: PICC Team [...] 03, 2023 TIME: 10:46 AM PAGER/CONTACT #: [phone] [facility] NURSING PROG HNO ID: [id number] Author: Hilda Dunlap RN Service: ? Author [...] GI to come assess patient at bedside. [facility] ALLIED HEALTHon 03-02-2023 ALLIED HEALTH HNO ID: [id number] Author: Omari Juan RT(R) Service: Radiology Author [...] RT(R) March 02, 2023 5:12 PM Normal [facility] Basic metabolic 2000 panelon 03-02-2023 Anion gap [Moles/Vol] 12 mmol/L Normal 9-18 [facility] Comment on above: Order Comment: Mahogany vargas Type: BLOOD SPECIMENOrdering Facility: [facility] Address: [address] [place] [address] Performed By: #### 2 4321-2 ####[facility] LABORATORYCLIA [id number] [place] [address] [place] Calcium [Mass/Vol] 8.9 mg/dL Normal 8.5-10.2 [facility] Comment on above: Order Comment: Mahogany vargas Type: BLOOD SPECIMENOrdering Facility: [facility] Address: [address] [place] [address] Performed By: #### 2 4321-2 ####[facility] LABORATORYCLIA [id number] [place] [address] [place] Chloride [Moles/Vol] 102 mmol/L Normal 97-105 [facility] Comment on above: Order Comment: Mahogany vargas Type: BLOOD SPECIMENOrdering Facility: [facility] Address: [address] [place] [address] Performed By: #### 2 4321-2 ####[facility] LABORATORYCLIA [id number] [place] [address] [place] CO2 [Moles/Vol] 26 mmol/L Normal 22-30 [facility] Comment on above: Order Comment: Mahogany vargas Type: BLOOD SPECIMENOrdering Facility: [facility] Address: [address] [address] Performed By: #### 2 4321-2 ####[facility] LABORATORYCLIA [id number] [place] [address] [place] Creatinine [Mass/Vol] 0.92 mg/dL Normal 0.58-0.96 [facility] Comment on above: Order Comment: Mahogany alicia Type: BLOOD SPECIMENOrdering Facility: [facility] Address: [address] [address] Performed By: #### 2 4321-2 ####[facility] LABORATORYCLIA [id number] [place] [address] [place] Creatinine and Glomerular filtration rate.predicted panel (S/P/Bld) 86 mL/min/1.73m??? Normal >=60 [facility] Comment on above: Order Comment: Mahogany vargas Type: BLOOD SPECIMENOrdering Facility: [facility] Address: [address] [place] [address] Result Comment: Samreen mated Glomerular Filtration Rate [...] actual GFR. Performed By: #### 2 4321-2 ####[facility] LABORATORYCLIA [id number] [place] [address] [place] Glucose [Mass/Vol] 162 mg/dL High 74-99 [facility] Comment on above: Order Comment: Timurkayelne vargas Type: BLOOD SPECIMENOrdering Facility: [facility] Address: [address] [address] Result Comment: The [place] Diabetes Association (ADA) provides guidance for cutoff [...] Standards of Medical Care in Diabetes 2016, [place] [employer]. Diabetes Care. 2016.39(Suppl 1). Performed By: #### 2 4321-2 ####[facility] LABORATORYCLIA [id number] [place] [address] [place] Potassium [Moles/Vol] 3.7 mmol/L Normal 3.7-5.1 [facility] Comment on above: Order Comment: Mahogany vargas Type: BLOOD SPECIMENOrdering Facility: [facility] Address: [address] [place] [address] Performed By: #### 2 4321-2 ####[facility] LABORATORYCLIA [id number] [place] [address] [place] Sodium [Moles/Vol] 140 mmol/L Normal 136-144 [facility] Comment on above: Order Comment: Mahogany vargas Type: BLOOD SPECIMENOrdering Facility: [facility] Address: [address] [place] [address] Performed By: #### 2 4321-2 ####[facility] LABORATORYCLIA [id number] [place] [address] [place] Urea nitrogen [Mass/Vol] 8 mg/dL Normal 7-21 [facility] Comment on above: Order Comment: Timuri alicia Type: BLOOD SPECIMENOrdering Facility: [facility] Address: [address] [address] Performed By: #### 2 4321-2 ####[facility] LABORATORYCLIA [id number] [place] [address] [place] CBC panel Auto (Bld)on 03-02 Erythrocyte distribution width (RBC) [Ratio] 13.4 % Normal 11.5-15.0 [facility] Comment on above: Order Comment: Speci men Type: BLOOD SPECIMENOrdering Facility: [facility] Address: [address] [place] [address] Performed By: #### 5 8410-2 ####[facility] LABORATORYCLIA [id number] [address] [place] Hematocrit (Bld) [Volume fraction] 34.1 % Low 36.0-46.0 [facility] Comment on above: Order Comment: Speci men Type: BLOOD SPECIMENOrdering Facility: [facility] Address: [address] [place] [address] Performed By: #### 5 8410-2 ####[facility] LABORATORYCLIA [id number] [address] [place] Hemoglobin (Bld) [Mass/Vol] 11.3 g/dL Low 11.5-15.5 [facility] Comment on above: Order Comment: Speci men Type: BLOOD SPECIMENOrdering Facility: [facility] Address: [address] [place] [address] Performed By: #### 5 8410-2 ####[facility] LABORATORYCLIA [id number] [place] [address] [place] MCH (RBC) [Entitic mass] 27.2 pg Normal 26.0-34.0 [facility] Comment on above: Order Comment: Speci men Type: BLOOD SPECIMENOrdering Facility: [facility] Address: [address] [place] [address] Performed By: #### 5 8410-2 ####[facility] LABORATORYCLIA [id number] [place] [address] [place] MCHC (RBC) [Mass/Vol] 33.1 g/dL Normal 30.5-36.0 [facility] Comment on above: Order Comment: Speci men Type: BLOOD SPECIMENOrdering Facility: [facility] Address: [address] [place] [address] Performed By: #### 5 8410-2 ####[facility] LABORATORYCLIA [id number] [place] [address] [place] MCV (RBC) [Entitic vol] 82.2 fL Normal 80.0-100.0 [facility] Comment on above: Order Comment: Speci men Type: BLOOD SPECIMENOrdering Facility: [facility] Address: [address] [place] [address] Performed By: #### 5 8410-2 ####[facility] LABORATORYCLIA [id number] [place] [address] [place] Nucleated RBC (Bld) [#/Vol] 10*3/uL Normal <0.01 [facility] Comment on above: Order Comment: Speci men Type: BLOOD SPECIMENOrdering Facility: [facility] Address: [address] [place] [address] Performed By: #### 5 8410-2 ####[facility] LABORATORYCLIA [id number] [place] [address] [place] Platelet mean volume (Bld) [Entitic vol] 9.4 fL Normal 9.0-12.7 [facility] Comment on above: Order Comment: Speci men Type: BLOOD SPECIMENOrdering Facility: [facility] Address: [address] [place] [address] Performed By: #### 5 8410-2 ####[facility] LABORATORYCLIA [id number] [place] [address] [place] Platelets (Bld) [#/Vol] 374 10*3/uL Normal 150-400 [facility] Comment on above: Order Comment: Speci men Type: BLOOD SPECIMENOrdering Facility: [facility] Address: [address] [place] [address] Performed By: #### 5 8410-2 ####[facility] LABORATORYCLIA [id number] [place] [address] [place] RBC (Bld) [#/Vol] 4.15 10*6/uL Normal 3.90-5.20 [facility] Comment on above: Order Comment: Speci men Type: BLOOD SPECIMENOrdering Facility: [facility] Address: [address] [place] [address] Performed By: #### 5 8410-2 ####[facility] SYSTEMCLIA [id number] [address] WBC (Bld) [#/Vol] 9.29 10*3/uL Normal 3.70-11.00 [facility] Comment on above: Order Comment: Mahogany vargas Type: BLOOD SPECIMENOrdering Facility: [facility] Address: [place] [address] Performed By: #### 5 8410-2 ####[facility] LABORATORYCLIA [id number] [address] CNPNon 03-02-2023 CNPN Telephone (SPPRAD) GHISLAINE GIVENS ([id number]) 1990 F [place] Date Time Provider Department [...] Visit Diagnosis:Nausea [R11.0] Order(s):NM GASTRIC EMPTYING SOLID [2397095] Order #: [id number] FUTURE Prescriptions as of 01/31/2024 - acetaminophen [...] type 2) (HCC) [E11.9] 03/16/2013 Elevated BP [ZDX4763] 04/28/2013 11/27/2013 HLD (hyperlipidemia) [E78.5] 11/27/2013 Tobacco use disorder [F17.200] 11/27/2013 Obesity, Class I, BMI 30-34.9 [E66.9] 02/18/2023 Intractable nausea and vomiting [R11.2] 02/18/2023 Severe protein-calorie malnutrition (HCC) [E43] 02/19/2023 Abdominal pain [R10.9] 03/01/2023 Constipation [K59.00] 03/02/2023 Anxiety and depression [F41.9, F32.A] 03/02/2023 Borderline personality disorder (HCC) [F60.3] 03/02/2023 Encounter Status:Closed by ALMITA KELLY on 01/31/24 [facility] CONSULTon 03-02-2023 CONSULT HNO ID: [id number] Author: Gen Bradford MD Service: Gastroenterology Author Type: Physician Type: Consults Filed: 03/02/2023 5:20 PM Note Text: [facility] STAFF PHYSICIAN NOTE OF PERSONAL INVOLVEMENT IN [...] 02, 2023 Patient: Ghislaine Givens Medical Record: [id number] Reason for Consult: Abdominal pain, vomiting Requesting [...] mild gastritis and an esophageal ulcer at [facility]. She was escorted down from Dr. [...] directed. Patient (more content not included)... Normal [facility] HISTORY PHYSICALon 3 HISTORY PHYSICAL HNO ID: [id number] Author: Saida Lopez MD Service: ? Author [...] office evaluation. She was not evaluated by ssas developer. Vomiting too frequent to count and constant [...] was prescribed stool softeners and laxatives during [facility] stay however she refuses to take [...] daily bef (more content not included)... Normal [facility] XR ABDOMEN 1V SUPINEon 03-02 XR [...] Mar 02 2023 5:24PM EST [id number] Normal [facility] CBC W Auto Differential pane l (Bld)on 03-01-2023 Basophils (Bld) [#/Vol] 0.04 10*3/uL Normal <0.11 [facility] Comment on above: Order Comment: Speci men Type: BLOOD SPECIMENOrdering Facility: [facility] Address: [address] [address] Performed By: #### 5 7021-8 ####[facility] LABORATORYCLIA [id number] [address] OF [facility] Basophils/100 WBC (Bld) 0.3 % Normal [facility] Comment on above: Order Comment: Speci men Type: BLOOD SPECIMENOrdering Facility: [facility] Address: [address] [address] Performed By: #### 5 7021-8 ####[facility] LABORATORYCLIA [id number] [place] [address] [place] Differential cell count method Nom (Bld) Auto Normal [facility] Comment on above: Order Comment: Speci men Type: BLOOD SPECIMENOrdering Facility: [facility] Address: [address] [place] [address] Performed By: #### 5 7021-8 ####[facility] LABORATORYCLIA [id number] [place] [address] [place] Eosinophils (Bld) [#/Vol] 0.03 10*3/uL Normal <0.46 [facility] Comment on above: Order Comment: Speci men Type: BLOOD SPECIMENOrdering Facility: [facility] Address: [address] [place] [address] Performed By: #### 5 7021-8 ####[facility] LABORATORYCLIA [id number] [address] [place] Eosinophils/100 WBC (Bld) 0.2 % Normal [facility] Comment on above: Order Comment: Speci men Type: BLOOD SPECIMENOrdering Facility: [facility] Address: [address] [place] [address] Performed By: #### 5 7021-8 ####[facility] LABORATORYCLIA [id number] [address] [place] Erythrocyte distribution width (RBC) [Ratio] 13.6 % Normal 11.5-15.0 [facility] Comment on above: Order Comment: Speci men Type: BLOOD SPECIMENOrdering Facility: [facility] Address: [address] [place] [address] Performed By: #### 5 7021-8 ####[facility] LABORATORYCLIA [id number] [place] [address] [place] Hematocrit (Bld) [Volume fraction] 41.4 % Normal 36.0-46.0 [facility] Comment on above: Order Comment: Speci men Type: BLOOD SPECIMENOrdering Facility: [facility] Address: [address] [place] [address] Performed By: #### 5 7021-8 ####[facility] LABORATORYCLIA [id number] [place] [address] [place] Hemoglobin (Bld) [Mass/Vol] 13.6 g/dL Normal 11.5-15.5 [facility] Comment on above: Order Comment: Speci men Type: BLOOD SPECIMENOrdering Facility: [facility] Address: [address] [place] [address] Performed By: #### 5 7021-8 ####[facility] LABORATORYCLIA [id number] [place] [address] [place] Immature granulocytes (Bld) [#/Vol] 0.08 10*3/uL Normal <0.10 [facility] Comment on above: Order Comment: Speci men Type: BLOOD SPECIMENOrdering Facility: [facility] Address: [address] [place] [address] Performed By: #### 5 7021-8 ####[facility] LABORATORYCLIA [id number] [place] [address] [place] Immature granulocytes/100 WBC (Bld) 0.6 % Normal [facility] Comment on above: Order Comment: Speci men Type: BLOOD SPECIMENOrdering Facility: [facility] Address: [address] [place] [address] Performed By: #### 5 7021-8 ####[facility] LABORATORYCLIA [id number] [place] [address] [place] Lymphocytes (Bld) [#/Vol] 3.86 10*3/uL Normal 1.00-4.00 [facility] Comment on above: Order Comment: Speci men Type: BLOOD SPECIMENOrdering Facility: [facility] Address: [address] [place] [address] Performed By: #### 5 7021-8 ####[facility] LABORATORYCLIA [id number] [place] [address] [place] Lymphocytes/100 WBC (Bld) 28.3 % Normal [facility] Comment on above: Order Comment: Speci men Type: BLOOD SPECIMENOrdering Facility: [facility] Address: [address] [address] Performed By: #### 5 7021-8 ####[facility] LABORATORYCLIA [id number] [address] [place] MCH (RBC) [Entitic mass] 26.8 pg Normal 26.0-34.0 [facility] Comment on above: Order Comment: Speci men Type: BLOOD SPECIMENOrdering Facility: [facility] Address: [address] [address] Performed By: #### 5 7021-8 ####[facility] LABORATORYCLIA [id number] [place] [address] [place] MCHC (RBC) [Mass/Vol] 32.9 g/dL Normal 30.5-36.0 [facility] Comment on above: Order Comment: Speci men Type: BLOOD SPECIMENOrdering Facility: [facility] Address: [address] [place] [address] Performed By: #### 5 7021-8 ####[facility] LABORATORYCLIA [id number] [address] [place] MCV (RBC) [Entitic vol] 81.7 fL Normal 80.0-100.0 [facility] Comment on above: Order Comment: Speci men Type: BLOOD SPECIMENOrdering Facility: [facility] Address: [address] [place] [address] Performed By: #### 5 7021-8 ####[facility] LABORATORYCLIA [id number] [place] [address] [facility] [place] Monocytes (Bld) [#/Vol] 0.80 10*3/uL Normal <0.87 [facility] Comment on above: Order Comment: Speci men Type: BLOOD SPECIMENOrdering Facility: [facility] Address: [address] [place] [address] Performed By: #### 5 7021-8 ####[facility] LABORATORYCLIA [id number] [place] [address] [place] Monocytes/100 WBC (Bld) 5.9 % Normal [facility] Comment on above: Order Comment: Speci men Type: BLOOD SPECIMENOrdering Facility: [facility] Address: [address] [address] Performed By: #### 5 7021-8 ####[facility] LABORATORYCLIA [id number] [place] [address] [place] Neutrophils (Bld) [#/Vol] 8.85 10*3/uL High 1.45-7.50 [facility] Comment on above: Order Comment: Speci men Type: BLOOD SPECIMENOrdering Facility: [facility] Address: [address] [place] [address] Performed By: #### 5 7021-8 ####[facility] LABORATORYCLIA [id number] [place] [address] [place] Neutrophils/100 WBC (Bld) 64.7 % Normal [facility] Comment on above: Order Comment: Speci men Type: BLOOD SPECIMENOrdering Facility: [facility] Address: [address] [place] [address] Performed By: #### 5 7021-8 ####[facility] LABORATORYCLIA [id number] [place] [address] [place] Nucleated RBC (Bld) [#/Vol] 10*3/uL Normal <0.01 [facility] Comment on above: Order Comment: Speci men Type: BLOOD SPECIMENOrdering Facility: [facility] Address: [address] [place] [address] Performed By: #### 5 7021-8 ####[facility] LABORATORYCLIA [id number] [place] [address] [place] Nucleated RBC/100 WBC (Bld) [Ratio] 0.0 /100 WBC Normal [facility] Comment on above: Order Comment: Speci men Type: BLOOD SPECIMENOrdering Facility: [facility] Address: [address] [place] [address] Performed By: #### 5 7021-8 ####[facility] LABORATORYCLIA [id number] [place] [id number] [place] Platelet mean volume (Bld) [Entitic vol] 9.3 fL Normal 9.0-12.7 [facility] Comment on above: Order Comment: Speci men Type: BLOOD SPECIMENOrdering Facility: [facility] Address: [address] [place] [address] Performed By: #### 5 7021-8 ####[facility] LABORATORYCLIA [id number] [place] [address] [place] Platelets (Bld) [#/Vol] 495 10*3/uL High 150-400 [facility] Comment on above: Order Comment: Speci men Type: BLOOD SPECIMENOrdering Facility: [facility] Address: [address] [place] [address] Performed By: #### 5 7021-8 ####[facility] LABORATORYCLIA [id number] [place] [address] [place] RBC (Bld) [#/Vol] 5.07 10*6/uL Normal 3.90-5.20 [facility] Comment on above: Order Comment: Speci men Type: BLOOD SPECIMENOrdering Facility: [facility] Address: [address] [place] [address] Performed By: #### 5 7021-8 ####[facility] LABORATORYCLIA [id number] [place] [address] [place] WBC (Bld) [#/Vol] 13.66 10*3/uL High 3.70-11.00 [facility] Comment on above: Order Comment: Speci men Type: BLOOD SPECIMENOrdering Facility: [facility] Address: [address] [place] [address] Performed By: #### 5 7021-8 ####[facility] LABORATORYCLIA [id number] [place] [id number] [facility] [place] Comprehensive metabolic 2000 panelon 03-01-2023 Albumin [Mass/Vol] 4.1 g/dL Normal 3.9-4.9 [facility] Comment on above: Order Comment: Speci men Type: BLOOD SPECIMENOrdering Facility: [facility] Address: [address] [place] [address] Performed By: #### [place], [address]-5, 3040-3, 79802-6 ####[facility] LABORATORYCLIA [id number] [place] [address] [place] ALP [Catalytic activity/Vol] 102 U/L Normal 34-123 [facility] Comment on above: Order Comment: Speci men Type: BLOOD SPECIMENOrdering Facility: [facility] Address: [address] [place] [address] Performed By: #### [place] HB, 59646-9, 3040-3, 33031-5 ####[facility] LABORATORYCLIA [id number] [address] [place] ALT [Catalytic activity/Vol] 10 U/L Normal 7-38 [facility] Comment on above: Order Comment: Speci men Type: BLOOD SPECIMENOrdering Facility: [facility] Address: [address] [place] [address] Performed By: #### [place], 67157-8, 3040-3, 96338-8 ####[facility] LABORATORYCLIA [id number] [address] Anion gap [Moles/Vol] 15 mmol/L Normal 9-18 [facility] Comment on above: Order Comment: Speci men Type: BLOOD SPECIMENOrdering Facility: [facility] Address: [address] [place] [address] Performed By: #### B HB, 36231-0, 3040-3, 63097-7 ####[facility] LABORATORYCLIA [id number] [place] [address] [place] AST [Catalytic activity/Vol] 12 U/L Low 13-35 [facility] Comment on above: Order Comment: Speci men Type: BLOOD SPECIMENOrdering Facility: [facility] Address: [address] [address] Performed By: #### [place], [address]-8, 3039-3, 70113-1 ####[facility] KRISHNAN LABORATORYCLIA [id number] [place] [address] [place] Bilirubin [Mass/Vol] 0.4 mg/dL Normal 0.2-1.3 [facility] Comment on above: Order Comment: Speci men Type: BLOOD SPECIMENOrdering Facility: [facility] Address: [address] [address] Performed By: #### Tarik HB, , 3, 86282-3 ####RACH TIFFANYCharan LABORATORYCLIA [id number] [place] [address] [place] Calcium [Mass/Vol] 9.8 mg/dL Normal 8.5-10.2 [facility] Comment on above: Order Comment: Speci men Type: BLOOD SPECIMENOrdering Facility: [facility] Address: [address] [address] Performed By: #### Tarik HB, , 3039-3, 72831-7 ####RACH TIFFANYCharan LABORATORYCLIA [id number] [place] [address] [place] Chloride [Moles/Vol] 95 mmol/L Low 97-105 [facility] Comment on above: Order Comment: Speci men Type: BLOOD SPECIMENOrdering Facility: [facility] Address: [address] [address] Performed By: #### B HB, , 3039-3, 31365-4 ####RACH ALLENCharan LABORATORYCLIA [id number] [place] [id number] [place] CO2 [Moles/Vol] 23 mmol/L Normal 22-30 [facility] Comment on above: Order Comment: Speci men Type: BLOOD SPECIMENOrdering Facility: [facility] Address: [address] [address] Performed By: #### B HB, 93931-3, 3040-3, 27248-8 ####[facility] LABORATORYCLIA [id number] [place] [id number] [place] Creatinine [Mass/Vol] 1.02 mg/dL High 0.58-0.96 [facility] Comment on above: Order Comment: Mahogany vargas Type: BLOOD SPECIMENOrdering Facility: [facility] Address: [address] [place] [address] Performed By: #### B HB, 54201-9, 3040-3, 05702-6 ####[facility] LABORATORYCLIA [id number] [place] [address] [place] Creatinine and Glomerular filtration rate.predicted panel (S/P/Bld) 76 mL/min/1.73m??? Normal >=60 [facility] Comment on above: Order Comment: Mahogany vargas Type: BLOOD SPECIMENOrdering Facility: [facility] Address: [address] [place] [address] Result Comment: Samreen mated Glomerular Filtration Rate [...] actual GFR. Performed By: #### B HB, 20028-1, 0-3, 97516-3 ####[facility] LABORATORYCLIA [id number] [place] [id number] [place] Glucose [Mass/Vol] 258 mg/dL High 74-99 [facility] Comment on above: Order Comment: Mahogany vargas Type: BLOOD SPECIMENOrdering Facility: [facility] Address: [address] [place] [address] Result Comment: The [place] [employer] (ADA) provides guidance for cutoff [...] Standards of Medical Care in Diabetes 2016, [place] [employer]. Diabetes Care. 2016.39(Suppl 1). Performed By: #### B HB, , 0-3, 94564-1 ####[facility] LABORATORYCLIA [id number] [place] [address] [place] Potassium [Moles/Vol] 3.5 mmol/L Low 3.7-5.1 [facility] Comment on above: Order Comment: Speci alicia Type: BLOOD SPECIMENOrdering Facility: [facility] Address: [address] [address] Performed By: #### B HB, , 3, 66032-8 ####[facility] LABORATORYCLIA [id number] [place] [address] [place] Protein [Mass/Vol] 8.5 g/dL High 6.3-8.0 [facility] Comment on above: Order Comment: Timuri alicia Type: BLOOD SPECIMENOrdering Facility: [facility] Address: [address] [address] Performed By: #### B HB, , 3, 58337-2 ####[facility] LABORATORYCLIA [id number] [place] [address] [place] Sodium [Moles/Vol] 133 mmol/L Low 136-144 [facility] Comment on above: Order Comment: Timuri alicia Type: BLOOD SPECIMENOrdering Facility: [facility] Address: [address] [address] Performed By: #### B HB, , 3039-3, 96879-7 ####[facility] LABORATORYCLIA [id number] [address] Urea nitrogen [Mass/Vol] 11 mg/dL Normal 01-29 [facility] Comment on above: Order Comment: Speci men Type: BLOOD SPECIMENOrdering Facility: [facility] Address: [address] [address] Performed By: #### B HB, 05438-4, 3040-3, 82564-5 ####[facility] LABORATORYCLIA [id number] [address] [place] ECG COMPLETEon 03-01-2023 ECG COMPLETE Ventricular Rate : 8 3 BPM Atrial Rate : 83 BPM P-R Interval : 126 ms QRS Duration : 90 ms Q-T Interval : 358 ms QTC Calculation(Bazett) : 420 ms Calculated P Erie : 5 degrees Calculated R Erie : 1 degrees Calculated T Erie : 13 degrees NORMAL SINUS RHYTHM MINIMAL VOLTAGE CRITERIA FOR LVH, MAY BE NORMAL VARIANT ( R in aVL ) NONSPECIFIC T WAVE ABNORMALITY ABNORMAL ECG NO PREVIOUS ECGS AVAILABLE Confirmed by ARABELLA SARMIENTO DO (), acquisitions editor NORMAN GARVEY ([id number]) on 03/02/2023 7:20:55 AM NAME : GHISLAINE GIVENS PID : [id number] : 1990 Gender : Female Race : ORD : [id number] Procedure Date : Mar 01 2023 11:58:01 Edit Date : Mar 02 2023 07:20:56 Diagnosis: NORMAL SINUS RHYTHM MINIMAL VOLTAGE CRITERIA FOR LVH, MAY BE NORMAL VARIANT ( R in aVL ) NONSPECIFIC T WAVE ABNORMALITY ABNORMAL ECG NO PREVIOUS ECGS AVAILABLE Confirmed by ARABELLA SARMIENTO DO (), acquisitions editor NORMAN GARVEY ([id number]) on 03/02/2023 7:20:55 AM Test Reason : Chest Pain Location : 1 : 1 ED Overread By : ARABELLA SARMIENTO DO Edited By : NORMAN GARVEY Referred By : , Acquired by : Erica TURNER [facility] ED NOTEon 03-01-2023 ED NOTE HNO ID: [id number] Author: Gayathri Bruno RN Service: ? Author Type: Registered Nurse Type: ED Notes Filed: 03/01/2023 5:12 PM Note Text: NG tube removed without complications. [facility] ED NOTE HNO ID: [id number] Author: Luzma Sen RN Service: Emergency Medicine Author Type: Registered Nurse Type: ED Notes Filed: 03/01/2023 5:05 PM Note Text: Patient crying and yelling in room to take out her NG tube. Provider aware. [facility] ED NOTE HNO ID: [id number] Author: Dewayne Gallagher RN Service: ? Author Type: Registered Nurse Type: ED Notes Filed: 03/01/2023 11:20 AM Note Text: Pt has longstanding pmh abd pain with n/v, had upper gi scope done at the [facility] 02/19/23 that showed mild gastritis. Pt was in [facility] for first visit, escorted down here by nursing staff. Pt denies diarrhea, sts too many episodes of vomiting to count, sts maybe a little when asked about hematemesis. Pt sts she hasnt smoked thc in 3 mos since all this started, sts ongoing issue for past 3 mos. [facility] ED PROV NOTEon 03-01-2023 ED PROV NOTE HNO ID: [id number] Author: Arabella Sarmiento DO Service: Emergency Medicine [...] office evaluation. She was not evaluated by ssas developer. Vomiting too frequent to count and constant [...] was prescribed stool softeners and laxatives during [facility] stay however she refuses to take them because she feels they worsen abdominal pain. She was also prescribed narcotic pain medication for home which she states she has been taking. 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 Normal [facility] KETONES/ACETONE/BHBon 2022 Beta hydroxybutyrate [Moles/Vol] 0.70 mmol/L High <0.28 [facility] Comment on above: Order Comment: Speckaylene vargas Type: BLOOD SPECIMENOrdering Facility: [facility] Address: [address] [place] [address] Performed By: #### B HB, 55068-7, 3040-3, 35112-2 ####[facility] LABORATORYCLIA [id number] [place] [address] [place] Lipase SerPl-cCncon 03-01-20 Lipase [Catalytic activity/Vol] 57 U/L Normal 16-61 [facility] Comment on above: Order Comment: Mahogany vargas Type: BLOOD SPECIMENOrdering Facility: [facility] Address: [address] [place] [address] Performed By: #### B HB, 23679-4, 3040-3, 28780-2 ####[facility] LABORATORYCLIA [id number] [place] [address] [place] Magnesium SerPl-mCncon 03-01 Magnesium [Mass/Vol] 1.7 mg/dL Normal 1.7-2.3 [facility] Comment on above: Order Comment: Speci men Type: BLOOD SPECIMENOrdering Facility: [facility] Address: [address] [place] [address] Performed By: #### B HB, 50024-8, 3040-3, 57809-7 ####[facility] LABORATORYCLIA [id number] [place] [address] [place] TOX SCREEN ROUT URon 023 Amphetamines Confirm (U) [Mass/Vol] Negative Normal Negative [facility] Comment on above: Order Comment: Speci men Type: URINE SPECIMENOrdering Facility: [facility] Address: [address] [place] [address] Result Comment: Cuto ff threshold at 1000 ng/mL. Performed By: #### U TOX2 ####[facility] LABORATORYCLIA [id number] [address] [place] BARBITURATES, URINE Negative Normal Negative [facility] Comment on above: Order Comment: Speci men Type: URINE SPECIMENOrdering Facility: [facility] Address: [address] [place] [address] Result Comment: Cuto ff threshold at 200 ng/mL. Performed By: #### U TOX2 ####[facility] LABORATORYCLIA [id number] [place] [address] [place] BENZODIAZEPINES, UR Negative Normal Negative [facility] Comment on above: Order Comment: Speci men Type: URINE SPECIMENOrdering Facility: [facility] Address: [address] [place] [address] Result Comment: Cuto ff threshold at 200 ng/mL. Performed By: #### U TOX2 ####[facility] LABORATORYCLIA [id number] [place] [address] [place] Cannabinoids Screen Ql (U) Negative Normal Negative [facility] Comment on above: Order Comment: Speci men Type: URINE SPECIMENOrdering Facility: [facility] Address: [address] [address] Result Comment: Cuto ff threshold at 50 ng/mL. Performed By: #### U TOX2 ####[facility]ORATORYCLIA [id number] [place] [address] [place] Cocaine Ql (U) Negative Normal Negative [facility] Comment on above: Order Comment: Speci men Type: URINE SPECIMENOrdering Facility: [facility] Address: [address] [place] [address] Result Comment: Cuto ff threshold at 300 ng/mL. Performed By: #### U TOX2 ####[facility]ORATORYCLIA [id number] [place] [address] [place] Ethanol (U) [Mass/Vol] <11 Normal <11 [facility] Comment on above: Order Comment: Speci men Type: URINE SPECIMENOrdering Facility: [facility] Address: [address] [place] [address] Performed By: #### U TOX2 ####[facility] LABORATORYCLIA [id number] [place] [address] [place] Opiates Screen Ql (U) Positive Abnormal Negative [facility] Comment on above: Order Comment: Speci men Type: URINE SPECIMENOrdering Facility: [facility] Address: [address] [address] Result Comment: Cuto ff threshold at 300 ng/mL. Performed By: #### U TOX2 ####[facility] LABORATORYCLIA [id number] [place] [address] [place] oxyCODONE cutoff Screen (U) [Mass/Vol] Negative Normal Negative [facility] Comment on above: Order Comment: Speci men Type: URINE SPECIMENOrdering Facility: [facility] Address: [address] [place] [address] Result Comment: Cuto ff threshold at 100 ng/mL. Performed By: #### U TOX2 ####[facility] LABORATORYCLIA [id number] [address] [place] Phencyclidine Ql (U) Negative Normal Negative [facility] Comment on above: Order Comment: Speci men Type: URINE SPECIMENOrdering Facility: [facility] Address: [address] [place] [address] Result Comment: Cuto ff threshold at 25 ng/mL. Performed By: #### U TOX2 ####[facility] LABORATORYCLIA [id number] [place] [address] [place] Urinalysis complete panel (U )on 03-01-2023 Bacteria LM.HPF (Urine sed) [#/Area] Moderate Abnormal None Seen [facility] Comment on above: Order Comment: Speci men Type: URINE SPECIMENOrdering Facility: [facility] Address: [address] [place] [address] Performed By: #### 2 4356-8 ####[facility]IA [id number] [address] [place] Bilirubin Ql (U) 1+ Abnormal Negative [facility] Comment on above: Order Comment: Speci men Type: URINE SPECIMENOrdering Facility: [facility] Address: [address] [place] [address] Result Comment: Sugg est correlation with clinical findings and serum bilirubin if clinically indicated. Performed By: #### 2 4356-8 ####[facility] LABORATORYCLIA [id number] [place] [address] [place] Clarity (Unsp spec) Cloudy Abnormal Clear [facility] Comment on above: Order Comment: Speci men Type: URINE SPECIMENOrdering Facility: [facility] Address: [address] [place] [address] Performed By: #### 2 4356-8 ####[facility] LABORATORYCLIA [id number] [place] [address] [place] Color (U) Yellow Normal Yellow [facility] Comment on above: Order Comment: Speci men Type: URINE SPECIMENOrdering Facility: [facility] Address: [address] [place] [address] Performed By: #### 2 4356-8 ####[facility] LABORATORYCLIA [id number] [place] [address] [place] Epithelial cells LM.HPF (Urine sed) [#/Area] Many Normal [facility] Comment on above: Order Comment: Speci men Type: URINE SPECIMENOrdering Facility: [facility] Address: [address] [place] [address] Result Comment: Few Performed By: #### 2 4356-8 ####[facility] LABORATORYCLIA [id number] [place] [address] [facility] Glucose Test strip (U) [Mass/Vol] Trace Abnormal Negative [facility] Comment on above: Order Comment: Speci men Type: URINE SPECIMENOrdering Facility: [facility] Address: [address] [place] [address] Performed By: #### 2 4356-8 ####[facility] LABORATORYCLIA [id number] [place] [address] [place] Hemoglobin Ql (U) Negative Normal Negative, Trace [facility] Comment on above: Order Comment: Speci men Type: URINE SPECIMENOrdering Facility: [facility] Address: [address] [place] [address] Performed By: #### 2 4356-8 ####[facility] LABORATORYCLIA [id number] [place] [address] [place] Hyaline casts (Urine sed) [#/Area] 1-3 /LPF Abnormal 0 /LPF [facility] Comment on above: Order Comment: Speci men Type: URINE SPECIMENOrdering Facility: [facility] Address: [address] [place] [address] Performed By: #### 2 4356-8 ####[facility] LABORATORYCLIA [id number] [place] [address] [place] Ketones Ql (U) Trace Abnormal Negative [facility] Comment on above: Order Comment: Speci men Type: URINE SPECIMENOrdering Facility: [facility] Address: [address] [place] [address] Performed By: #### 2 4356-8 ####[facility] LABORATORYCLIA [id number] [address] [place] Leukocyte esterase Test strip Ql (U) Negative Normal Negative [facility] Comment on above: Order Comment: Speci men Type: URINE SPECIMENOrdering Facility: [facility] Address: [address] [place] [address] Performed By: #### 2 4356-8 ####[facility] LABORATORYCLIA [id number] [place] [address] [place] [facility] Nitrite Ql (U) Negative Normal Negative [facility] Comment on above: Order Comment: Speci men Type: URINE SPECIMENOrdering Facility: [facility] Address: [address] [place] [address] Performed By: #### 2 4356-8 ####[facility] LABORATORYCLIA [id number] [place] [address] [place] pH (U) 5.5 [pH] Normal 5.0-8.0 [facility] Comment on above: Order Comment: Speci men Type: URINE SPECIMENOrdering Facility: [facility] Address: [address] [place] [address] Performed By: #### 2 4356-8 ####[facility] LABORATORYCLIA [id number] [place] [address] [place] Protein (U) [Mass/Vol] 2+ Abnormal Negative [facility] Comment on above: Order Comment: Speci men Type: URINE SPECIMENOrdering Facility: [facility] Address: [address] [place] [address] Performed By: #### 2 4356-8 ####[facility] LABORATORYCLIA [id number] [place] [address] [place] RBC LM.HPF (Urine sed) [#/Area] 0-3 /HPF Normal 0-3 /HPF [facility] Comment on above: Order Comment: Speci men Type: URINE SPECIMENOrdering Facility: [facility] Address: [address] [place] [address] Performed By: #### 2 4356-8 ####[facility] LABORATORYCLIA [id number] [place] [address] [place] Specific gravity (U) [Rel density] >=1.030 High 1.005-1.030 [facility] Comment on above: Order Comment: Speci men Type: URINE SPECIMENOrdering Facility: [facility] Address: [address] [place] [address] Performed By: #### 2 4356-8 ####[facility] LABORATORYCLIA [id number] [address] [place] Urobilinogen Ql (U) 1.0 EU/dL Normal 0.2-1.0 EU/dL [facility] Comment on above: Order Comment: Speci men Type: URINE SPECIMENOrdering Facility: [facility] Address: [address] [place] [address] Performed By: #### 2 4356-8 ####[facility] SYSTEMCLIA [id number] [address] [place] WBC LM.HPF (Urine sed) [#/Area] 0-5 /HPF Normal 0-5 /HPF [facility] Comment on above: Order Comment: Speci men Type: URINE SPECIMENOrdering Facility: [facility] Address: [address] [place] [address] Performed By: #### 2 4356-8 ####[facility] LABORATORYCLIA [id number] [address] [place] Absolute lymphocyte countOrd ered By: Perico Norman on 02-26-2023 Lymphocytes Auto (Unsp spec) [#/Vol] 2.45 10*3/uL 0.83-4.51 [facility] Basophil percentageOrdered B y: Perico Norman on 02-26-2023 Basophil percentage 0-5 SEEN /hpf 0-5 [facility] Basophil percentage 271 mg/dL 74-106 [facility] Basophil percentage 9.3 g/dL 6.4-8.2 [facility] Basophil percentage 0.80 mg/dL 0.20-1.00 [facility] Basophil percentage 131 mmol/L 136-145 [facility] Basophil percentage 3.4 mmol/L 3.5-5.1 [facility] Basophil percentage 98 mmol/L 98-107 [facility] Basophils (Bld) [#/Vol] 16.2 10*3/uL 4.4-11.0 [facility] Basophils (Bld) [#/Vol] 12.3 10*3/uL 2.0-7.7 [facility] Basophils/100 WBC (Bld) 75.8 % 47-70 [facility] Basophils/100 WBC (Bld) 0.1 % 0-5 [facility] Basophils/100 WBC (Bld) 0.4 % 0-1 [facility] Bilirubin [Mass/Vol] 0.80 mg/dL 0.20-1.00 [facility] Comment on above: For patients on eltr ombopag therapy, use of Dimension Harvest TBIL is not recommended. Chloride [Moles/Vol] 98 mmol/L 98-107 [facility] Eosinophils/100 WBC (Bld) 0.1 % 0-5 [facility] Glucose [Mass/Vol] 271 mg/dL 74-106 [facility] Comment on above: Glucose result great er than or equal to 200 mg/dLsuggests DIABETES MELLITUS per A.D.A. criteria. Neutrophils (Bld) [#/Vol] 12.3 10*3/uL 2.0-7.7 [facility] Neutrophils/100 WBC (Bld) 75.8 % 47-70 [facility] Potassium [Moles/Vol] 3.4 mmol/L 3.5-5.1 [facility] Protein [Mass/Vol] 9.3 g/dL 6.4-8.2 [facility] Sodium [Moles/Vol] 131 mmol/L 136-145 [facility] WBC (Bld) [#/Vol] 16.2 10*3/uL 4.4-11.0 [facility] Beta hCG serum qualOrdered B y: Perico Norman on 02-26-2023 Beta HCG ( test) Ql Negative [facility] Bilirubin Test strip Ql (U)O rdered By: Perico Norman on 02-26-2023 Bilirubin Ql (U) Negative Negative [facility] Blood erythrocytes count (nu mber/volume)Ordered By: Perico Norman on 02-26-2023 RBC (Bld) [#/Vol] 4.97 10*6/uL 4.2-5.4 [facility] Blood hemoglobin measurement (mass/volume)Ordered By: Perico Norman on 02-26-2023 Hemoglobin (Bld) [Mass/Vol] 13.3 g/dL 12.0-15.0 [facility] Blood lymphocytes/100 leukoc ytesOrdered By: Perico Norman on 02-26-2023 Lymphocytes/100 WBC (Bld) 15.1 % 19-41 [facility] Blood monocytes/100 leukocyt esOrdered By: Perico Norman on 02-26-2023 Monocytes/100 WBC (Bld) 8.0 % 0-10 [facility] Blood platelet mean volumeOr dered By: Perico Norman on 02-26-2023 Platelet mean volume (Bld) [Entitic vol] 9.1 fL 6.2-12.0 [facility] Determination of erythrocyte mean corpuscular volume (MCV)Ordered By: Preico Norman on 02-26-2023 MCV (RBC) [Entitic vol] 80.9 fL 81-99 [facility] Direct bilirubinOrdered By: Perico Norman on 02-26-2023 Bilirubin.direct [Mass/Vol] 0.22 mg/dL 0.00-0.30 [facility] Hematocrit Auto (Bld) [Volum e fraction]Ordered By: Perico Norman on 02-26-2023 Hematocrit (Bld) [Volume fraction] 40.2 % 37-47 [facility] Ketones Test strip Ql (U)Ord ered By: Perico Norman on 02-26-2023 Ketones Ql (U) 15 mg/dl Negative [facility] Laboratory - Chemistry and C hemistry - challengeOrdered By: Perico Norman on 02-26-2023 ALP [Catalytic activity/Vol] 108 U/L 45-117 [facility] ALT [Catalytic activity/Vol] 17 U/L 13-56 [facility] CO2 [Moles/Vol] 22.0 mmol/L 21.0-32.0 [facility] Globulin (S) [Mass/Vol] 5.7 g/dL 2.2-4.2 [facility] Lipase [Catalytic activity/Vol] 64 U/L 13-75 [facility] Comment on above: Please note:LIPASE r evised reference range effective 22. New Lipase methodology. Expected to produce lower values than the previous assay method. NEW Reference Range: 13 - 75 U/L Magnesium [Mass/Vol] 2.0 mg/dL 1.6-2.6 [facility] Urea nitrogen/Creatinine [Mass ratio] 13.2 mg/mg 10-20 [facility] Laboratory - Hematology and Cell countsOrdered By: Perico Norman on 02-26-2023 Erythrocyte distribution width (RBC) [Entitic vol] 38.7 fL 35.1-43.9 [facility] Erythrocyte distribution width (RBC) [Ratio] 13.2 % 11.6-14.6 [facility] Immature granulocytes/100 WBC (Bld) 0.600 % 0.0-0.9 [facility] Comment on above: IG% - Immature Granu locytes (promyelocytes, myelocytes and metamyelocytes) > 1% indicates that a LEFT SHIFT is Present. MCH (RBC) [Entitic mass] 26.8 pg 27.0-32.0 [facility] Nucleated RBC/100 WBC (Bld) [Ratio] 0 % 0-5 [facility] MCHC Auto (RBC) [Mass/Vol]Or dered By: Perico Norman on 02-26-2023 MCHC (RBC) [Mass/Vol] 33.1 g/dL 32-36 [facility] Mucus LM Ql (Urine sed)Order ed By: Perico Norman on 02-26-2023 Mucus Ql (Urine sed) 0 SEEN /hpf [facility] Nitrite Test strip Ql (U)Ord ered By: Perico Norman on 02-26-2023 Nitrite Ql (U) Negative Negative [facility] No Panel InformationOrdered By: Perico Norman on 02-26-2023 Urine Transitional Epithelial Cells 0-5 SEEN /hpf 0-5 [facility] 0-5 SEEN /hpf 0-5 [facility] Estimated Creatinine Clearance Calc 50.20 ml/min [facility] Estimated GFR (MDRD) Amer 51 mL/min >60 [facility] Comment on above: GFR Calc Estimated GFR (MDRD) Non-Af Amer 42 mL/min >60 [facility] Comment on above: Non- GFR Calc 26.8 pg 27.0-32.0 [facility] 13.2 % 11.6-14.6 [facility] 38.7 fl 35.1-43.9 [facility] 0.600 % 0.0-0.9 [facility] 0 % 0-5 [facility] 42 mL/min >60 [facility] 51 mL/min >60 [facility] 50.20 ml/min [facility] 13.2 RATIO 10-20 [facility] 5.7 g/dL 2.2-4.2 [facility] 64 U/L 13-75 [facility] 108 U/L 45-117 [facility] 17 U/L 13-56 [facility] 2.0 mg/dL 1.6-2.6 [facility] 22.0 mmol/L 21.0-32.0 [facility] Platelets bldOrdered By: Bakari Norman on 02-26-2023 Platelets (Bld) [#/Vol] 483 10*3/uL 150-450 [facility] Protein Test strip Ql (U)Ord ered By: Perico Norman on 02-26-2023 Protein Ql (U) 30 mg/dl Negative [facility] Serum or plasma albumin hussein urement (mass/volume)Ordered By: Perico Norman on 02-26-2023 Albumin [Mass/Vol] 3.6 g/dL 3.2-5.0 [facility] Serum or plasma calcium hussein urement (mass/volume)Ordered By: Perico Norman on 02-26-2023 Calcium [Mass/Vol] 9.8 mg/dL 8.5-10.1 [facility] Serum or plasma creatinine m easurement (mass/volume)Ordered By: Perico Norman on 02-26-2023 Creatinine [Mass/Vol] 1.52 mg/dL 0.55-1.02 [facility] Comment on above: The validity of the calculated GFR & GFRAA in patients over 70 years has not been determined. Clinical correlation is essential. Serum or plasma urea nitroge n measurement (mass/volume)Ordered By: Perico Norman on 02-26-2023 Urea nitrogen [Mass/Vol] 20 mg/dL - [facility] Squamous epithelial cells de tection in urine sediment by light microscopyOrdered By: Perico Norman on 02-26-2023 Epithelial cells.squamous LM Ql (Urine sed) 0-5 SEEN /hpf 5-10 [facility] Thin prep Papanicolaou smear with manual screeningOrdered By: Perico Norman on 02-26-2023 Thin prep Papanicolaou smear with manual screening 12 U/L 15-37 [facility] Thin prep Papanicolaou smear with manual screening 11 5-15 [facility] Urine blood detectionOrdered By: Perico Norman on 02-26-2023 RBC Ql (U) 10 /ul Negative [facility] RBC Ql (U) 0 SEEN /hpf 0-5 [facility] Urine clarityOrdered By: Bakari Norman on 02-26-2023 Clarity (U) Clear Clear [facility] Urine color determinationOrd ered By: Perico Norman on 02-26-2023 Color (U) Yellow Yellow [facility] Urine glucose detectionOrder ed By: Perico Norman on 02-26-2023 Glucose Ql (U) 100 mg/dl Normal [facility] Urine leukocyte esterase det ection by dipstickOrdered By: Perico Norman on 02-26-2023 Leukocyte esterase Test strip Ql (U) 25 /ul Negative [facility] Urine pHOrdered By: Perico hernandez on 02-26-2023 pH (U) 5.0 [pH] 5.0 - 8.0 [facility] Urine sediment bacteria coun t by microscopy (number/high power field)Ordered By: Perico Norman on 02-26-2023 Bacteria LM.HPF (Urine sed) [#/Area] RARE /hpf None Seen [facility] Urine specific gravity measu rementOrdered By: Perico Norman on 02-26-2023 Specific gravity (U) [Rel density] 1.020 1.002-1.030 [facility] Urobilinogen Auto test strip Ql (U)Ordered By: Perico Norman on 02-26-2023 Urobilinogen Ql (U) Normal mg/dl Normal [facility] CBC + DIFFon 02-17-2023 Baso # 0.00 x10EE3/UL Normal 0.00 - 0.10 [facility] Comment on above: Performed By: #### 2 67766 #### [facility],[address] [place], [place] [id number] Basophils/100 WBC (Bld) 0.4 % Normal 0.0 - 2.0 [facility] Comment on above: Performed By: #### 2 80277 #### [facility],[address] [place] [address] CBC + DIFF Normal [facility] Comment on above: Result Comment: CBC- COMPLETE BLOOD COUNT Performed By: #### 2 95041 #### [facility],[address] [place] [address] EO # 0.00 x10EE3/UL Normal 0.00 - 0.50 [facility] Comment on above: Performed By: #### 2 91954 #### [facility],[address] [place] [address] Eosinophils/100 WBC (Bld) 0.2 % Normal 0.0 - 7.0 [facility] Comment on above: Performed By: #### 2 21961 #### [facility],[address] [place] [address] Erythrocyte distribution width (RBC) [Ratio] 15.1 % Normal 12.0 - 15.6 [facility] Comment on above: Performed By: #### 2 49705 #### [facility],[address] [place] [address] Hematocrit (Bld) [Volume fraction] 39.7 % Normal 34.0 - 46.0 [facility] Comment on above: Performed By: #### 2 36205 #### [facility],[address] [place] [address] Hemoglobin (Bld) [Mass/Vol] 13.3 g/dL Normal 12.0 - 16.0 [facility] Comment on above: Performed By: #### 2 22856 #### [facility],[address] [place] [address] Lymph # 3.30 x10EE3/UL High 0.80 - 2.80 [facility] Comment on above: Performed By: #### 2 56264 #### [facility],[address] [place] [address] Lymphocytes/100 WBC (Bld) 30.5 % Normal 20.0 - 45.0 [facility] Comment on above: Performed By: #### 2 24512 #### [facility],[address] [place] [address] MANUAL DIFF N/A Normal [facility] Comment on above: Performed By: #### 2 45395 #### [facility],[address] [place] [address] MCH (RBC) [Entitic mass] 27 pg Normal 27 - 33 [facility] Comment on above: Performed By: #### 2 25224 #### [facility],[address] [place] [address] MCHC 33 X10 3 Normal 32 - 36 [facility] Comment on above: Performed By: #### 2 87681 #### [facility],[address] [place] [address] MCV (RBC) [Entitic vol] 80 fL Normal 80 - 99 [facility] Comment on above: Performed By: #### 2 63631 #### [facility],[address] [place] [address] Young # 0.60 x10EE3/UL Normal 0.20 - 1.00 [facility] Comment on above: Performed By: #### 2 25708 #### [place] [address] MONOS % 5.9 % Normal 0.0 - 10.0 [facility] Comment on above: Performed By: #### 2 35253 #### [facility],[address] [place] [address] Morphology Franky (Bld) [Interp] N/A Normal [facility] Comment on above: Result Comment: {CD] Performed By: #### 2 82098 #### [place] [address] Neut # 6.90 x10EE3/UL Normal 1.50 - 7.10 [facility] Comment on above: Performed By: #### 2 36526 #### [place] [address] Neutrophils/100 WBC (Bld) 63.0 % Normal 46.0 - 76.0 [facility] Comment on above: Performed By: #### 2 99878 #### [place] [address] PLATELET 561 x10EE3/UL High 150 - 450 [facility] Comment on above: Performed By: #### 2 51504 #### [place] [address] Platelet mean volume (Bld) [Entitic vol] 7.6 fL Normal 6.6 - 10.5 [facility] Comment on above: Result Comment: AUTO MATED DIFFERENTIAL Performed By: #### 2 35935 #### [place] [address] RBC 4.95 x 10EE6/UL Normal 4.10 - 5.30 [facility] Comment on above: Performed By: #### 2 92673 #### [facility],[address] [place], [place] [id number] WBC 10.9 x 10EE3/UL High 4.5 - 10.8 [facility] Comment on above: Performed By: #### 2 75484 #### [facility],[address] [place], [place] [id number] CMP with eGFRon 02-17-2023 AGE 33 years Normal [facility] Comment on above: Performed By: #### 2 53122 #### [facility],[address] [place] [address] Albumin [Mass/Vol] 3.5 g/dL Normal 3.4 - 5.0 [facility] Comment on above: Performed By: #### 2 00544 #### [facility],[address] [place] [address] Albumin/Globulin [Mass ratio] 0.6 {ratio} Low 0.9 - 1.6 [facility] Comment on above: Performed By: #### 2 54233 #### [facility],[address] [place], [place] [id number] ALK PHOS 112 U/L Normal 46 - 116 [facility] Comment on above: Performed By: #### 2 61529 #### [facility],[address] [place], [place] [id number] ALT [Catalytic activity/Vol] 28 U/L Normal 14 - 59 [facility] Comment on above: Performed By: #### 2 64559 #### [facility],[address] [place] [address] Anion gap [Moles/Vol] 21 mmol/L High 10 - 20 [facility] Comment on above: Performed By: #### 2 01838 #### [facility],[address] [place] [address] AST [Catalytic activity/Vol] 13 U/L Normal 13 - 39 [facility] Comment on above: Performed By: #### 2 51108 #### [facility],[address] [place], [place] [id number] B/C RATIO 12 ratio Normal 0 - 30 [facility] Comment on above: Performed By: #### 2 97059 #### [facility],[address] [place] [address] Bilirubin [Mass/Vol] 0.6 mg/dL Normal 0.2 - 1.0 [facility] Comment on above: Performed By: #### 2 75048 #### [facility],[address] [place] [address] Calcium [Mass/Vol] 9.6 mg/dL Normal 8.5 - 10.1 [facility] Comment on above: Performed By: #### 2 94584 #### [facility],[address] [place], [place] [phone] Chloride [Moles/Vol] 94 mmol/L Low 98 - 107 [facility] Comment on above: Performed By: #### 2 41301 #### [facility],[address] [place] [address] CMP with eGFR Normal [facility] Comment on above: Result Comment: COMP REHENSIVE METABOLIC PANEL Performed By: #### 2 78828 #### [facility],[address] [place], [place] [id number] CO2 [Moles/Vol] 23.7 mmol/L Normal 21.0 - 32.0 [facility] Comment on above: Performed By: #### 2 73872 #### [facility],[address] [place], [place] [id number] Creatinine [Mass/Vol] 1.18 mg/dL High 0.55 - 1.02 [facility] Comment on above: Performed By: #### 2 44365 #### [facility],[address] [place], [place] [id number] eGFR 53 ML/MINUTE Low 60 - 999 [facility] Comment on above: Performed By: #### 2 12704 #### [facility],[address] [place] [address] GFR/1.73 sq M.predicted among non-blacks MDRD (S/P/Bld) [Vol rate/Area] mL/min/{1.73_m2} Normal 60 - 999 [facility] Comment on above: Result Comment: ACCO RDING TO THE NATIONAL KIDNEY DISEASE EDUCATION PROGRAM(NKDE), A NORMAL eGFR IS A VALUE GREATER THAN OR EQUAL TO 60 ML/MIN/1.73 SQ METERS. CHRONIC KIDNEY DISEASE: <60mL/MIN/1.73 SQ METERS KIDNEY FAILURE: <15mL/MIN/1.73 SQ METERS THIS TEST SHOULD ONLY BE USED FOR PATIENTS 18 YEARS OF AGE AND OLDER. Performed By: #### 2 53846 #### [address] [address] Globulin (S) [Mass/Vol] 5.4 g/dL High 1.5 - 3.8 [facility] Comment on above: Performed By: #### 2 82288 #### [address] [address] Glucose [Mass/Vol] 306 mg/dL High 74 - 106 [facility] Comment on above: Performed By: #### 2 55403 #### [address] [address] Potassium [Moles/Vol] 3.9 mmol/L Normal 3.5 - 5.1 [facility] Comment on above: Performed By: #### 2 80209 #### [address] [address] Protein [Mass/Vol] 8.9 g/dL High 6.4 - 8.2 [facility] Comment on above: Performed By: #### 2 01865 #### [address] [address] Sodium [Moles/Vol] 135 mmol/L Low 136 - 145 [facility] Comment on above: Performed By: #### 2 92657 #### [address] [address] Urea nitrogen [Mass/Vol] 14 mg/dL Normal 7 - 18 [facility] Comment on above: Performed By: #### 2 53136 #### [facility],[address] [place] [address] DRUG SCREEN URINE MEDICon AMPHETAMINES Negative Normal [facility] Comment on above: Performed By: #### 2 45574 #### [facility],[address] [place] [address] B-DIAZEPINES Negative Normal [facility] Comment on above: Performed By: #### 2 69696 #### [facility],[address] [place] [address] BARBITURATES Negative [facility] Comment on above: Performed By: #### 2 96484 #### [facility],[address] [place] [address] COCAINE Negative [facility] Comment on above: Performed By: #### 2 04973 #### [facility],[address] [place] [address] DRUG SCREEN URINE MEDIC Normal [facility] Comment on above: Result Comment: DRUG SCREEN - URINE Performed By: #### 2 83282 #### [facility],[address] [place] [address] METHADONE Negative Normal [facility] Comment on above: Performed By: #### 2 30667 #### [facility],[address] [place] [address] OPIATES Negative [facility] Comment on above: Performed By: #### 2 29748 #### [facility],[address] [place] [address] PCP Negative [facility] Comment on above: Performed By: #### 2 04038 #### [facility],[address] [place] [address] THC Negative Normal [facility] Comment on above: Result Comment: ERASTO ENTS RECEIVING PROTON PUMP INHIBITORS MAY DEMONSTRATE FALSE POSITIVE THC/CANNABINOID RESULTS. AN ALTERNATIVE CONFIRMATORY METHOD SHOULD BE CONSIDERED TO VERIFY POSITIVE RESULTS. Performed By: #### 2 23149 #### [facility],[address] [place] [address] LIPASEon 02-17-2023 Lipase [Catalytic activity/Vol] 103.0 U/L Normal 73.0 - 393 [facility] Comment on above: Performed By: #### 2 11061 #### [facility],[address] [place] [address] URINEon 02-17-2023 Beta HCG ( test) Ql (U) Negative Normal NEGATIVE [facility] Comment on above: Performed By: #### 2 17795 #### [facility],[address] [place] [address] EXTERNAL QC DONE? YES Normal [facility] Comment on above: Performed By: #### 2 73644 #### [facility],[address] [place] [address] INTERNAL QC PASS Normal [facility] Comment on above: Performed By: #### 2 89399 #### [facility],[address] [place], [place] [phone] URINALYSISon 02-17-2023 Amorphous NONE Normal [facility] Comment on above: Performed By: #### 2 14502 #### [facility],[address] [place] [address] Bacteria TRACE Normal [facility] Comment on above: Performed By: #### 2 75160 #### [facility],[address] [place] [address] Bilirubin Ql (U) Negative Normal NORMAL: NEGATIVE [facility] Comment on above: Performed By: #### 2 27444 #### [facility],[address] [place] [address] Casts NONE Normal [facility] Comment on above: Performed By: #### 2 03830 #### [facility],[address] [place] [address] Clarity (U) sl.cloudy Normal NORMAL: CLEAR [facility] Comment on above: Performed By: #### 2 37073 #### [facility],[address] [place] [address] Color (U) jaqui Normal NORMAL: YELLOW [facility] Comment on above: Performed By: #### 2 71743 #### [facility],[address] [place] [address] Crystals LM Nom (Urine sed) NONE Normal [facility] Comment on above: Performed By: #### 2 74410 #### [facility],[address] [place] [address] Epi Cells FEW Normal [facility] Comment on above: Performed By: #### 2 68374 #### [facility],[address] [place] [address] Glucose Ql (U) 250 Abnormal NORMAL: NORMAL [facility] Comment on above: Performed By: #### 2 63743 #### [facility],[address] [place] [address] Hemoglobin Ql (U) Negative Normal NORMAL: NEGATIVE [facility] Comment on above: Performed By: #### 2 58179 #### [facility],[address] [place] [address] Ketone 150 Abnormal NORMAL: NEGATIVE [facility] Comment on above: Performed By: #### 2 13819 #### [facility],[address] [place] [address] Leukocytes 25 Abnormal NORMAL: NEGATIVE [facility] Comment on above: Performed By: #### 2 22754 #### [facility],[address] [place] [address] Mucous NONE Normal [facility] Comment on above: Performed By: #### 2 08629 #### [facility],[address] [place] [address] Nitrite Ql (U) Negative Normal NORMAL: NEGATIVE [facility] Comment on above: Performed By: #### 2 34367 #### [facility],[address] [place] [address] pH (U) 8 [pH] Normal NORMAL: 5.0-8.0 [facility] Comment on above: Performed By: #### 2 25767 #### [facility],[address] [place] [address] Protein Ql (U) 30 Abnormal NORMAL: NEGATIVE [facility] Comment on above: Performed By: #### 2 91764 #### [facility],[address] [place] [address] Rbc NONE Normal 0-3/hpf [facility] Comment on above: Performed By: #### 2 69354 #### [facility],[address] [place] [address] Sp [place] 1.010 Normal NORMAL: 1.010-1.030 [facility] Comment on above: Performed By: #### 2 79746 #### [facility],[address] [place] [address] Specimen Type UNSPECIFIED Normal [facility] Comment on above: Performed By: #### 2 21618 #### [facility],[address] [place] [address] Urinalysis dipstick W Reflex Microscopic panel (U) SEE BELOW Normal [facility] Comment on above: Result Comment: MICR OSCOPIC Performed By: #### 2 81012 #### [facility],[address] [place] [address] Urobilinog NORM Normal NORMAL: NORMAL [facility] Comment on above: Performed By: #### 2 66071 #### [facility],[address] [place] [address] Wbc 1-5 Normal 0-5/hpf [facility] Comment on above: Performed By: #### 2 76421 #### [facility],[address] [place] [address] Yeast NONE Normal [facility] Comment on above: Performed By: #### 2 17931 #### [facility],[address] [place] [address] .Auto Diffon 02-11-2023 Basophil, Absolute 0.1 10 3/mcL Normal 0.0-0.2 [facility] ([place]) Comment on above: Performed By: #### A DIFF, GFR, MDW, CMP, ANEU, CBC, LIP #### [address] [address] Basophils/100 WBC (Bld) 0.5 % Normal 0.0-2.5 A [facility] ([place]) Comment on above: Performed By: #### A DIFF, GFR, MDW, CMP, ANEU, CBC, LIP #### [address] [address] Eosinophil, Absolute 0.0 10 3/mcL Normal 0.0-0.4 [facility] ([place]) Comment on above: Performed By: #### A DIFF, GFR, MDW, CMP, ANEU, CBC, LIP #### [address] [address] Eosinophils/100 WBC (Bld) 0.2 % Normal 0.0-7.0 [facility] ([place]) Comment on above: Performed By: #### A DIFF, GFR, MDW, CMP, ANEU, CBC, LIP #### [address] [address] Lymphocyte, Absolute 4.2 10 3/mcL High 0.8-3.9 [facility] ([place]) Comment on above: Performed By: #### A DIFF, GFR, MDW, CMP, ANEU, CBC, LIP #### [address] [address] Lymphocytes/100 WBC (Bld) 32.7 % Normal 10.0-50.0 [facility] ([place]) Comment on above: Performed By: #### A DIFF, GFR, MDW, CMP, ANEU, CBC, LIP #### [address] [address] Monocyte, Absolute 0.9 10 3/mcL Normal 0.2-1.0 [facility] ([place]) Comment on above: Performed By: #### A DIFF, GFR, MDW, CMP, ANEU, CBC, LIP #### [address] [address] Monocytes/100 WBC (Bld) 7.0 % Normal 1.7-13.0 A [facility] ([place]) Comment on above: Performed By: #### A DIFF, GFR, MDW, CMP, ANEU, CBC, LIP #### [address] [address] Neutrophils/100 WBC (Bld) 59.6 % Normal 37.0-80.0 [facility] ([place]) Comment on above: Performed By: #### A DIFF, GFR, MDW, CMP, ANEU, CBC, LIP #### [address] [address] Basophil, Absolute 0.1 10 3/mcL Normal 0.0-0.2 [facility] ([place]) Comment on above: Performed By: #### C MP, GFR, CBC, LIP, ADIFF, ANEU, MDW #### [address] [address] Basophils/100 WBC (Bld) 0.6 % Normal 0.0-2.5 A [facility] ([place]) Comment on above: Performed By: #### C MP, GFR, CBC, LIP, ADIFF, ANEU, MDW #### [address] [address] Eosinophil, Absolute 0.0 10 3/mcL Normal 0.0-0.4 [facility] ([place]) Comment on above: Performed By: #### C MP, GFR, CBC, LIP, ADIFF, ANEU, MDW #### [address] [address] Eosinophils/100 WBC (Bld) 0.1 % Normal 0.0-7.0 [facility] ([place]) Comment on above: Performed By: #### C MP, GFR, CBC, LIP, ADIFFDESIRAE MDW #### [address] [address] Lymphocyte, Absolute 4.2 10 3/mcL High 0.8-3.9 [facility] ([place]) Comment on above: Performed By: #### C MP, GFR, CBC, LIP, ADIFF, ALDAIR MERRILL #### [address] [address] Lymphocytes/100 WBC (Bld) 26.5 % Normal 10.0-50.0 [facility] ([place]) Comment on above: Performed By: #### C MP, GFR, CBC, LIP, ADIFFDESIRAE MDW #### [address] [address] Monocyte, Absolute 1.0 10 3/mcL Normal 0.2-1.0 [facility] ([place]) Comment on above: Performed By: #### C MP, GFR, CBC, LIP, ADIFF, ALDAIR MERRILL #### [address] [address] Monocytes/100 WBC (Bld) 6.1 % Normal 1.7-13.0 [facility] ([place]) Comment on above: Performed By: #### C MP, GFR, CBC, LIP, ADIFFDESIRAE MDW #### [address] [address] Neutrophils/100 WBC (Bld) 66.7 % Normal 37.0-80.0 [facility] ([place]) Comment on above: Performed By: #### C MP, GFR, CBC, LIP, ADIFFDESIRAE MDW #### [address] [address] .GFRon 02-11-2023 GFR 63 ml/min/1.73sqm Normal [facility] ([place]) Comment on above: Result Comment: GFR [...] GFR, MDW, CMP, ANEU, CBC, LIP #### [address] [address] GFR Non- 52 ml/min/1.73sqm Normal [facility] ([place]) Comment on above: Result Comment: GFR [...] GFR, MDW, CMP, ANEU, CBC, LIP #### [address] [address] GFR Non- 42 ml/min/1.73sqm Normal [facility] ([place]) Comment on above: Result Comment: GFR [...] GFR, MDW, CMP, ANEU, CBC, LIP #### [place] [id number] GFR 51 ml/min/1.73sqm Normal [facility] ([place]) Comment on above: Result Comment: GFR [...] GFR, MDW, CMP, ANEU, CBC, LIP #### [place] [address] .MDWon 02-11-2023 Monocyte Distribution Width 19.69 Normal 0.00-20.00 [facility] ([place]) Comment on above: Result Comment: For ED adult patients suspected of sepsis, MDW<=20.0 does not rule out sepsis or risk of sepsis Performed By: #### A DIFF, GFR, MDW, CMP, ANEU, CBC, LIP #### [place] [address] .NEUABSon 02-11-2023 Neutrophil, Absolute 7.6 10 3/mcL High 2.9-6.2 [facility] ([place]) Comment on above: Performed By: #### A DIFF, GFR, MDW, CMP, ANEU, CBC, LIP #### [place] [id number] Neutrophil, Absolute 10.5 10 3/mcL High 2.9-6.2 A [facility] ([place]) Comment on above: Performed By: #### C MP, GFR, CBC, LIP, ADIFF, ANEU, MDW #### [address] [address] .Urinalysis Microscopic (AO) on 02-11-2023 UA Bacteria Trace Abnormal [facility] ([place]) Comment on above: Performed By: #### A DIFF, GFR, MDW, CMP, ANEU, CBC, LIP #### [address] [address] UA RBC None Seen Normal None Seen [facility] ([place]) Comment on above: Performed By: #### A DIFF, GFR, MDW, CMP, ANEU, CBC, LIP #### [place] [address] UA Squam Epithelial 0-5 Abnormal None Seen [facility] ([place]) Comment on above: Performed By: #### A DIFF, GFR, MDW, CMP, ANEU, CBC, LIP #### [place] [address] UA WBC 0-5 Abnormal None Seen [facility] ([place]) Comment on above: Performed By: #### A DIFF, GFR, MDW, CMP, ANEU, CBC, LIP #### [place] [address] A1Con 02-11-2023 HbA1c (Bld) [Mass fraction] 9.0 % High 4.3-6.4 [facility] ([place]) Comment on above: Performed By: #### A DIFF, GFR, MDW, CMP, ANEU, CBC, LIP #### [place] [address] CBCon 02-11-2023 Erythrocyte distribution width (RBC) [Ratio] 14.8 % High 11.5-14.5 [facility] ([place]) Comment on above: Performed By: #### A DIFF, GFR, MDW, CMP, ANEU, CBC, LIP #### [address] [address] Hematocrit (Bld) [Volume fraction] 34.6 % Low 37.0-47.0 [facility] ([place]) Comment on above: Performed By: #### A DIFF, GFR, MDW, CMP, ANEU, CBC, LIP #### [address] [address] Hgb 11.5 G/dL Low 12.0-16.0 [facility] ([place] Comment on above: Performed By: #### A DIFF, GFR, MDW, CMP, ANEU, CBC, LIP #### [address] [address] MCH (RBC) [Entitic mass] 26.6 pg Low 27.0-31.2 [facility] ([place] Comment on above: Performed By: #### A DIFF, GFR, MDW, CMP, ANEU, CBC, LIP #### [address] [address] MCHC 33.3 G/dL Normal 33.0-37.0 [facility] ([place] Comment on above: Performed By: #### A DIFF, GFR, MDW, CMP, ANEU, CBC, LIP #### [address] [address] MCV (RBC) [Entitic vol] 80.0 fL Normal 80.0-94.0 [facility] ([place]) Comment on above: Performed By: #### A DIFF, GFR, MDW, CMP, ANEU, CBC, LIP #### [address] [address] Platelet 332 10 3/mcL Normal 130-400 [facility] ([place] Comment on above: Performed By: #### A DIFF, GFR, MDW, CMP, ANEU, CBC, LIP #### [address] [address] Platelet mean volume (Bld) [Entitic vol] 7.5 fL Normal 7.4-10.4 [facility] ([place] Comment on above: Performed By: #### A DIFF, GFR, MDW, CMP, ANEU, CBC, LIP #### [address] [address] RBC 4.33 10 6/mcL Normal 4.20-5.40 [facility] ([place] Comment on above: Performed By: #### A DIFF, GFR, MDW, CMP, ANEU, CBC, LIP #### [address] [address] WBC 12.7 10 3/mcL High 4.6-10.8 [facility] ([place] Comment on above: Performed By: #### A DIFF, GFR, MDW, CMP, ANEU, CBC, LIP #### [address] [address] Erythrocyte distribution width (RBC) [Ratio] 14.9 % High 11.5-14.5 [facility] ([place] Comment on above: Performed By: #### C MP, GFR, CBC, LIP, ADIFF, DESIRAE, MDW #### [place] [address] Hematocrit (Bld) [Volume fraction] 38.8 % Normal 37.0-47.0 [facility] ([place] Comment on above: Performed By: #### C MP, GFR, CBC, LIP, ADIFF, DESIRAE, MDW #### [address] [address] Hgb 12.7 G/dL Normal 12.0-16.0 [facility] ([place] Comment on above: Performed By: #### C MP, GFR, CBC, LIP, ADIFF, ANEU, MDW #### [address] [address] MCH (RBC) [Entitic mass] 26.6 pg Low 27.0-31.2 [facility] ([place] Comment on above: Performed By: #### C MP, GFR, CBC, LIP, ADIFF, ANEU, MDW #### [address] [address] MCHC 32.8 G/dL Low 33.0-37.0 [facility] ([place] Comment on above: Performed By: #### C MP, GFR, CBC, LIP, ADIFF, DESIRAE, W #### [address] [address] MCV (RBC) [Entitic vol] 81.2 fL Normal 80.0-94.0 [facility] ([place]) Comment on above: Performed By: #### C MP, GFR, CBC, LIP, ADIFF, MD DESIRAEW #### [address] [address] Platelet 385 10 3/mcL Normal 130-400 [facility] ([place] Comment on above: Performed By: #### C MP, GFR, CBC, LIP, ADIFF, MD DESIRAEW #### [address] [address] Platelet mean volume (Bld) [Entitic vol] 7.6 fL Normal 7.4-10.4 [facility] ([place] Comment on above: Performed By: #### C MP, GFR, CBC, LIP, ADIFF, ANEU, MDW #### [address] [address] RBC 4.78 10 6/mcL Normal 4.20-5.40 [facility] ([place] Comment on above: Performed By: #### C MP, GFR, CBC, LIP, ADIFF, ANEU, MDW #### [address] [address] WBC 15.8 10 3/mcL High 4.6-10.8 [facility] ([place] Comment on above: Performed By: #### C MP, GFR, CBC, LIP, ADIFF, ANEU, W #### [address] [address] CMPon 02-11-2023 ALT [Catalytic activity/Vol] 15 U/L Normal 14-59 [facility] ([place] Comment on above: Performed By: #### A DIFF, GFR, MDW, CMP, ANEU, CBC, LIP #### [address] [address] Albumin Level 3.0 G/dL Low 3.5-5.0 [facility] ([place] Comment on above: Performed By: #### A DIFF, GFR, MDW, CMP, ANEU, CBC, LIP #### [address] [address] Albumin/Globulin [Mass ratio] 0.8 {ratio} Low 1.1-2.5 [facility] ([place] Comment on above: Performed By: #### A DIFF, GFR, MDW, CMP, ANEU, CBC, LIP #### [address] [address] ALP [Catalytic activity/Vol] 78 U/L Normal 40-135 [facility] ([place] Comment on above: Performed By: #### A DIFF, GFR, MDW, CMP, ANEU, CBC, LIP #### [address] [address] AST [Catalytic activity/Vol] 17 U/L Normal 10-40 [facility] ([place] Comment on above: Performed By: #### A DIFF, GFR, MDW, CMP, ANEU, CBC, LIP #### [address] [address] Bili Total 0.6 mg/dL Normal 0.2-1.0 [facility] ([place]) Comment on above: Result Comment: Use of this assay is not recommended for patients undergoing treatment with eltrombopag due to the potential for falsely elevated results. Performed By: #### A DIFF, GFR, MDW, CMP, ANEU, CBC, LIP #### [address] [address] BUN/Creatinine Ratio 6 ratio Low 7-27 [facility] ([place]) Comment on above: Performed By: #### A DIFF, GFR, MDW, CMP, ANEU, CBC, LIP #### [address] [address] Calcium [Mass/Vol] 8.5 mg/dL Normal 8.4-10.2 [facility] ([place]) Comment on above: Performed By: #### A DIFF, GFR, MDW, CMP, ANEU, CBC, LIP #### [address] [address] Chloride [Moles/Vol] 96 mmol/L Low 98-107 [facility] ([place]) Comment on above: Performed By: #### A DIFF, GFR, MDW, CMP, ANEU, CBC, LIP #### [address] [address] CO2 [Moles/Vol] 29 mmol/L Normal 22-29 [facility] ([place] Comment on above: Performed By: #### A DIFF, GFR, MDW, CMP, ANEU, CBC, LIP #### [address] [address] Creatinine [Mass/Vol] 1.21 mg/dL High 0.55-1.02 [facility] ([place]) Comment on above: Performed By: #### A DIFF, GFR, MDW, CMP, ANEU, CBC, LIP #### [place] [address] Electrolyte Balance 11.0 mEq/L Normal 4.0-15.0 [facility] ([place]) Comment on above: Performed By: #### A DIFF, GFR, MDW, CMP, ANEU, CBC, LIP #### [address] [address] Globulin 3.7 G/dL Normal [facility] ([place] Comment on above: Performed By: #### A DIFF, GFR, MDW, CMP, ANEU, CBC, LIP #### [address] [address] Glucose [Mass/Vol] 246 mg/dL High 70-105 [facility] ([place] Comment on above: Performed By: #### A DIFF, GFR, MDW, CMP, ANEU, CBC, LIP #### [place] [address] Potassium [Moles/Vol] 3.5 mmol/L Normal 3.5-5.1 [facility] ([place]) Comment on above: Performed By: #### A DIFF, GFR, MDW, CMP, ANEU, CBC, LIP #### [address] [address] Sodium [Moles/Vol] 136 mmol/L Normal 136-145 [facility] ([place] Comment on above: Performed By: #### A DIFF, GFR, MDW, CMP, ANEU, CBC, LIP #### [address] [address] Total Protein 6.7 G/dL Normal 6.4-8.2 [facility] ([place] Comment on above: Performed By: #### A DIFF, GFR, MDW, CMP, ANEU, CBC, LIP #### [address] [address] Urea nitrogen [Mass/Vol] 7 mg/dL Normal 7-18 [facility] ([place] Comment on above: Performed By: #### A DIFF, GFR, MDW, CMP, ANEU, CBC, LIP #### [address] [address] Albumin Level 3.7 G/dL Normal 3.5-5.0 [facility] ([place] Comment on above: Performed By: #### A DIFF, GFR, MDW, CMP, ANEU, CBC, LIP #### [address] [address] Albumin/Globulin [Mass ratio] 0.8 {ratio} Low 1.1-2.5 [facility] ([place] Comment on above: Performed By: #### A DIFF, GFR, MDW, CMP, ANEU, CBC, LIP #### [address] [address] ALP [Catalytic activity/Vol] 88 U/L Normal 40-135 [facility] ([place] Comment on above: Performed By: #### A DIFF, GFR, MDW, CMP, ANEU, CBC, LIP #### [address] [address] ALT [Catalytic activity/Vol] 16 U/L Normal 14-59 [facility] ([place] Comment on above: Performed By: #### A DIFF, GFR, MDW, CMP, ANEU, CBC, LIP #### [address] [address] AST [Catalytic activity/Vol] 10 U/L Normal 10-40 [facility] ([place] Comment on above: Performed By: #### A DIFF, GFR, MDW, CMP, ANEU, CBC, LIP #### [address] [address] Bili Total 0.9 mg/dL Normal 0.2-1.0 [facility] ([place]) Comment on above: Result Comment: Use of this assay is not recommended for patients undergoing treatment with eltrombopag due to the potential for falsely elevated results. Performed By: #### A DIFF, GFR, MDW, CMP, ANEU, CBC, LIP #### [address] [address] BUN/Creatinine Ratio 6 ratio Low 7-27 [facility] ([place] Comment on above: Performed By: #### A DIFF, GFR, MDW, CMP, ANEU, CBC, LIP #### [address] [address] Calcium [Mass/Vol] 9.4 mg/dL Normal 8.4-10.2 [facility] ([place] Comment on above: Performed By: #### A DIFF, GFR, MDW, CMP, ANEU, CBC, LIP #### [address] [address] Chloride [Moles/Vol] 90 mmol/L Low 98-107 [facility] ([place] Comment on above: Performed By: #### A DIFF, GFR, MDW, CMP, ANEU, CBC, LIP #### [address] [address] CO2 [Moles/Vol] 30 mmol/L High 22-29 [facility] ([place] Comment on above: Performed By: #### A DIFF, GFR, MDW, CMP, ANEU, CBC, LIP #### [address] [address] Creatinine [Mass/Vol] 1.45 mg/dL High 0.55-1.02 [facility] ([place]) Comment on above: Performed By: #### A DIFF, GFR, MDW, CMP, ANEU, CBC, LIP #### [address] [address] Electrolyte Balance 7.0 mEq/L Normal 4.0-15.0 [facility] ([place] Comment on above: Performed By: #### A DIFF, GFR, MDW, CMP, ANEU, CBC, LIP #### [address] [address] Globulin 4.4 G/dL Normal [facility] ([place] Comment on above: Performed By: #### A DIFF, GFR, MDW, CMP, ANEU, CBC, LIP #### [address] [address] Glucose [Mass/Vol] 307 mg/dL High 70-105 [facility] ([place] Comment on above: Performed By: #### A DIFF, GFR, MDW, CMP, ANEU, CBC, LIP #### [address] [address] Potassium [Moles/Vol] 3.5 mmol/L Normal 3.5-5.1 [facility] ([place]) Comment on above: Performed By: #### A DIFF, GFR, MDW, CMP, ANEU, CBC, LIP #### [address] [address] Sodium [Moles/Vol] 127 mmol/L Low 136-145 [facility] ([place] Comment on above: Performed By: #### A DIFF, GFR, MDW, CMP, ANEU, CBC, LIP #### [address] [address] Total Protein 8.1 G/dL Normal 6.4-8.2 [facility] ([place] Comment on above: Performed By: #### A DIFF, GFR, MDW, CMP, ANEU, CBC, LIP #### [address] [address] Urea nitrogen [Mass/Vol] 8 mg/dL Normal 7-18 [facility] ([place] Comment on above: Performed By: #### A DIFF, GFR, MDW, CMP, ANEU, CBC, LIP #### [facility] [address] [place], [place] [address] LABORATORYOrdered By: Harriet Cope ast on 02-11-2023 Blood Glucose Testing Reason Routine (02/11/23 4:15 PM) [facility] Work Phone: Glucose [Mass/Vol] 203 mg/dL Invalid Interpretation Code 70 - 110 mg/dL [facility] Work Phone: Blood Glucose Testing Reason Routine (02/11/23 7:15 AM) [facility] Work Phone: Glucose [Mass/Vol] 237 mg/dL Invalid Interpretation Code 70 - 110 mg/dL [facility] Work Phone: LABORATORYOrdered By: Manjinder Boogie on 02-11-2023 Blood Glucose Testing Reason Routine (02/11/23 12:04 PM) [facility] Work Phone: Glucose [Mass/Vol] 220 mg/dL Invalid Interpretation Code 70 - 110 mg/dL [facility] Work Phone: LABORATORYOrdered By: SYSTEM SYSTEM [...] Lactic Acid Lvl 1.7 mmol/L Normal 0.4-2.0 [facility] ([place] Comment on above: Performed By: #### A DIFF, GFR, MDW, CMP, ANEU, CBC, LIP #### [address] [address] LIPon 02-11-2023 Lipase Level 39 U/L Normal 16-77 [facility] ([place]) Comment on above: Performed By: #### A DIFF, GFR, MDW, CMP, ANEU, CBC, LIP #### [facility] [address] [place], [place] [address] MGon 02-11-2023 Magnesium [Mass/Vol] 2.1 mg/dL Normal 1.8-2.4 [facility] ([place] Comment on above: Performed By: #### A DIFF, GFR, MDW, CMP, ANEU, CBC, LIP #### [facility] [address] [place], [place] [address] NM GASTRIC EMPTYING STUDYon 02-11-2023 NM GASTRIC [...] 02/11/2023 3:41:00 PM Ordering Provider: MARTI Maldonado [facility] ([place]) No Panel Informationon 02-11 Microscopic examination of blood, culture Culture has been received in lab and is no growth to date. Routine cultures are held for 5 days. [facility] Work Phone: PREGUon 02-11-2023 HCG ( test) Ql (U) Negative Normal [facility] ([place] Comment on above: Performed By: #### A DIFF, GFR, MDW, CMP, ANEU, CBC, LIP #### [address] [address] test (u) int Not detected Invalid Interpretation Code [facility] ([place] Comment on above: Performed By: #### A DIFF, GFR, MDW, CMP, ANEU, CBC, LIP #### [address] [address] TOXSCon 02-11-2023 U Ampheta (AO) Negative Normal [facility] ([place] Comment on above: Performed By: #### A DIFF, GFR, MDW, CMP, ANEU, CBC, LIP #### [address] [address] U Marifer (AO) Negative Normal [facility] ([place] Comment on above: Performed By: #### A DIFF, GFR, MDW, CMP, ANEU, CBC, LIP #### [address] [address] U Ayan (AO) Negative Normal [facility] ([place] Comment on above: Performed By: #### A DIFF, GFR, MDW, CMP, ANEU, CBC, LIP #### [address] [address] U Cannab (AO) Positive Normal [facility] ([place] Comment on above: Performed By: #### A DIFF, GFR, MDW, CMP, ANEU, CBC, LIP #### [address] [address] U Cocaine (AO) Negative [facility] ([place]) Comment on above: Performed By: #### A DIFF, GFR, MDW, CMP, ANEU, CBC, LIP #### [address] [address] U Methadone (AO) Negative Normal [facility] ([place] Comment on above: Performed By: #### A DIFF, GFR, MDW, CMP, ANEU, CBC, LIP #### [address] [address] U PCP (AO) Negative Normal [facility] ([place] Comment on above: Performed By: #### A DIFF, GFR, MDW, CMP, ANEU, CBC, LIP #### [address] [address] U TCA (AO) Negative Normal [facility] ([place] Comment on above: Performed By: #### A DIFF, GFR, MDW, CMP, ANEU, CBC, LIP #### [address] [address] Urine Opiates (AO) Positive Normal [facility] ([place]) Comment on above: Performed By: #### A DIFF, GFR, MDW, CMP, ANEU, CBC, LIP #### [address] [address] UAon 02-11-2023 Color (U) Yellow Normal [facility] ([place] Comment on above: Performed By: #### A DIFF, GFR, MDW, CMP, ANEU, CBC, LIP #### [address] [address] Glucose (U) [Mass/Vol] 100 mg/dL Abnormal Negative [facility] ([place]) Comment on above: Performed By: #### A DIFF, GFR, MDW, CMP, ANEU, CBC, LIP #### [address] [address] Ketones Ql (U) Negative Normal Negative [facility] ([place] Comment on above: Performed By: #### A DIFF, GFR, MDW, CMP, ANEU, CBC, LIP #### [address] [address] UA Appear Clear Normal Clear [facility] ([place] Comment on above: Performed By: #### A DIFF, GFR, MDW, CMP, ANEU, CBC, LIP #### [address] [address] UA Blood Trace Abnormal Negative [facility] ([place] Comment on above: Performed By: #### A DIFF, GFR, MDW, CMP, ANEU, CBC, LIP #### [address] [address] UA Leuk Est Negative Normal Negative [facility] ([place] Comment on above: Performed By: #### A DIFF, GFR, MDW, CMP, ANEU, CBC, LIP #### [address] [address] UA Nitrite Negative Normal Negative [facility] ([place] Comment on above: Performed By: #### A DIFF, GFR, MDW, CMP, ANEU, CBC, LIP #### [address] [address] UA pH 7.0 Normal 5.0 - 8.0 [facility] ([place] Comment on above: Performed By: #### A DIFF, GFR, MDW, CMP, ANEU, CBC, LIP #### [address] [address] UA Protein Negative Normal Negative [facility] ([place] Comment on above: Performed By: #### A DIFF, GFR, MDW, CMP, ANEU, CBC, LIP #### [address] [address] UA Spec Grav 1.015 Normal 1.015-1.025 [facility] ([place] Comment on above: Performed By: #### A DIFF, GFR, MDW, CMP, ANEU, CBC, LIP #### [address] [address] UA Specimen Type Void Normal [facility] ([place] Comment on above: Performed By: #### A DIFF, GFR, MDW, CMP, ANEU, CBC, LIP #### [address] [address] UA Urobilinogen 0.2 E.U./dL Normal 0.2-1.0 [facility] ([place]) Comment on above: Performed By: #### A DIFF, GFR, MDW, CMP, ANEU, CBC, LIP #### [address] [address] Urobilinogen (U) [Mass/Vol] Negative Normal Negative [facility] ([place] Comment on above: Performed By: #### A DIFF, GFR, MDW, CMP, ANEU, CBC, LIP #### [address] [address] Color (U) Yellow Normal [facility] ([place] Comment on above: Performed By: #### A DIFF, GFR, MDW, CMP, ANEU, CBC, LIP #### [address] [address] Glucose (U) [Mass/Vol] 100 mg/dL Abnormal Negative [facility] ([place]) Comment on above: Performed By: #### A DIFF, GFR, MDW, CMP, ANEU, CBC, LIP #### [address] [address] Ketones Ql (U) 15 mg/dL Abnormal Negative [facility] ([place] Comment on above: Performed By: #### A DIFF, GFR, MDW, CMP, ANEU, CBC, LIP #### [address] [address] UA Appear Clear Normal Clear [facility] ([place] Comment on above: Performed By: #### A DIFF, GFR, MDW, CMP, ANEU, CBC, LIP #### [address] [address] UA Blood Trace Abnormal Negative [facility] ([place] Comment on above: Performed By: #### A DIFF, GFR, MDW, CMP, ANEU, CBC, LIP #### [address] [address] UA Leuk Est Trace Abnormal Negative [facility] ([place] Comment on above: Performed By: #### A DIFF, GFR, MDW, CMP, ANEU, CBC, LIP #### [address] [address] UA Nitrite Negative Normal Negative [facility] ([place] Comment on above: Performed By: #### A DIFF, GFR, MDW, CMP, ANEU, CBC, LIP #### [address] [address] UA pH 5.5 Normal 5.0 - 8.0 [facility] ([place] Comment on above: Performed By: #### A DIFF, GFR, MDW, CMP, ANEU, CBC, LIP #### [place] [address] UA Protein Negative Normal Negative [facility] ([place] Comment on above: Performed By: #### A DIFF, GFR, MDW, CMP, ANEU, CBC, LIP #### [place] [address] UA Spec Grav <=1.005 Abnormal 1.015-1.025 [facility] ([place] Comment on above: Performed By: #### A DIFF, GFR, MDW, CMP, ANEU, CBC, LIP #### [place] [address] UA Specimen Type Clean Catch Normal [facility] ([place] Comment on above: Performed By: #### A DIFF, GFR, MDW, CMP, ANEU, CBC, LIP #### [place] [address] UA Urobilinogen 0.2 E.U./dL Normal 0.2-1.0 [facility] ([place] Comment on above: Performed By: #### A DIFF, GFR, MDW, CMP, ANEU, CBC, LIP #### [place] [address] Urobilinogen (U) [Mass/Vol] Negative Normal Negative [facility] ([place] Comment on above: Performed By: #### A DIFF, GFR, MDW, CMP, ANEU, CBC, LIP #### [place] [address] US ABDOMEN COMPLETEon 2022 US ABDOMEN COMPLETE [...] 02/11/2023 1:29:01 PM Ordering Provider: MARTI Maldonado [facility] ([place]) [place] PELVIS NON-OB W/TRANSVAGI NALon [...] PM Ordering Provider: MARTI WEBB [facility]) XR ABDOMEN APon 02-11-2023 XR ABDOMEN AP [...] AM Ordering Provider: MARTI WEBB [facility]) LABORATORYOrdered By: [employer] on 02-10-2023 Albumin BCP dye [Mass/Vol] [...] Auto (Unsp spec) [#/Vol] 1.67 10*3/uL 0.83-4.51 [facility] Amorphous sediment detection in urine sediment by light microscopyOrdered By: Javy Doss on 02-08-2023 Amorphous sediment LM Ql (Urine sed) 3+ [facility] [place] Basophil percentageOrdered B y: Javy Doss on 02-08-2023 Basophil percentage 0-5 SEEN /hpf 0-5 [facility] Basophil percentage 325 mg/dL 74-106 [facility] Basophil percentage 9.2 g/dL 6.4-8.2 [facility] Basophil percentage 0.70 mg/dL 0.20-1.00 [facility] Basophil percentage 134 mmol/L 136-145 [facility] Basophil percentage 3.7 mmol/L 3.5-5.1 [facility] Basophil percentage 96 mmol/L 98-107 [facility] Basophils (Bld) [#/Vol] 9.1 10*3/uL 4.4-11.0 [facility] Basophils (Bld) [#/Vol] 7.0 10*3/uL 2.0-7.7 [facility] Basophils/100 WBC (Bld) 0.2 % 0-1 [facility] Basophils/100 WBC (Bld) 77.0 % 47-70 [facility] Basophils/100 WBC (Bld) 0.0 % 0-5 [facility] Bilirubin [Mass/Vol] 0.70 mg/dL 0.20-1.00 [facility] Comment on above: For patients on eltr ombopag therapy, use of [employer] TBIL is not recommended. Chloride [Moles/Vol] 96 mmol/L 98-107 [facility] Eosinophils/100 WBC (Bld) 0.0 % 0-5 [facility] Glucose [Mass/Vol] 325 mg/dL 74-106 [facility] [place] [facility] Comment on above: Glucose result great er than or equal to 200 mg/dLsuggests DIABETES MELLITUS per A.D.A. criteria. Neutrophils (Bld) [#/Vol] 7.0 10*3/uL 2.0-7.7 [facility] Neutrophils/100 WBC (Bld) 77.0 % 47-70 [facility] Potassium [Moles/Vol] 3.7 mmol/L 3.5-5.1 [facility] Protein [Mass/Vol] 9.2 g/dL 6.4-8.2 [facility] [place] [facility] Sodium [Moles/Vol] 134 mmol/L 136-145 [facility] [place] [facility] WBC (Bld) [#/Vol] 9.1 10*3/uL 4.4-11.0 [facility] [place] [facility] Beta hCG serum qualOrdered B y: Javy Doss on 02-08-2023 Beta HCG ( test) Ql Negative [facility] Bilirubin Test strip Ql (U)O rdered By: Javy Doss on 02-08-2023 Bilirubin Ql (U) Negative Negative [facility] Blood erythrocytes count (nu mber/volume)Ordered By: Javy Doss on 02-08-2023 RBC (Bld) [#/Vol] 5.27 10*6/uL 4.2-5.4 [facility] Blood hemoglobin measurement (mass/volume)Ordered By: Javy Doss on 02-08-2023 Hemoglobin (Bld) [Mass/Vol] 13.9 g/dL 12.0-15.0 [facility] Blood lymphocytes/100 leukoc ytesOrdered By: Javy Doss on 02-08-2023 Lymphocytes/100 WBC (Bld) 18.4 % 19-41 [facility] Blood monocytes/100 leukocyt esOrdered By: Javy Doss on 02-08-2023 Monocytes/100 WBC (Bld) 3.6 % 0-10 [facility] Blood platelet mean volumeOr dered By: Javy Doss on 02-08-2023 Platelet mean volume (Bld) [Entitic vol] 9.3 fL 6.2-12.0 [facility] Determination of erythrocyte mean corpuscular volume (MCV)Ordered By: Javy Doss on 02-08-2023 MCV (RBC) [Entitic vol] 81.2 fL 81-99 [facility] Hematocrit Auto (Bld) [Volum e fraction]Ordered By: Javy Doss on 02-08-2023 Hematocrit (Bld) [Volume fraction] 42.8 % 37-47 [facility] Ketones Test strip Ql (U)Ord ered By: Javy Doss on 02-08-2023 Ketones Ql (U) 50 mg/dl Negative [facility] Laboratory - Chemistry and C hemistry - challengeOrdered By: Javy Doss on 02-08-2023 ALP [Catalytic activity/Vol] 105 U/L 45-117 [facility] ALT [Catalytic activity/Vol] 24 U/L 13-56 [facility] CO2 [Moles/Vol] 30.0 mmol/L 21.0-32.0 [facility] Globulin (S) [Mass/Vol] 5.4 g/dL 2.2-4.2 [facility] Lipase [Catalytic activity/Vol] 38 U/L 13-75 [facility] Comment on above: Please note:LIPASE r evised reference range effective 22. New Lipase methodology. Expected to produce lower values than the previous assay method. NEW Reference Range: 13 - 75 U/L Urea nitrogen/Creatinine [Mass ratio] 7.4 mg/mg 10-20 [facility] Laboratory - Hematology and Cell countsOrdered By: Javy Doss on 02-08-2023 Erythrocyte distribution width (RBC) [Entitic vol] 39.1 fL 35.1-43.9 [facility] Erythrocyte distribution width (RBC) [Ratio] 13.3 % 11.6-14.6 [facility] Immature granulocytes/100 WBC (Bld) 0.800 % 0.0-0.9 [facility] Comment on above: IG% - Immature Granu locytes (promyelocytes, myelocytes and metamyelocytes) > 1% indicates that a LEFT SHIFT is Present. MCH (RBC) [Entitic mass] 26.4 pg 27.0-32.0 [facility] Nucleated RBC/100 WBC (Bld) [Ratio] 0 % 0-5 [facility] MCHC Auto (RBC) [Mass/Vol]Or dered By: Javy Doss on 02-08-2023 MCHC (RBC) [Mass/Vol] 32.5 g/dL 32-36 [facility] Mucus LM Ql (Urine sed)Order ed By: Javy Doss on 02-08-2023 Mucus Ql (Urine sed) 0 SEEN /hpf [facility] Nitrite Test strip Ql (U)Ord ered By: Javy Doss on 02-08-2023 Nitrite Ql (U) Negative Negative [facility] No Panel InformationOrdered By: Javy Doss on 02-08-2023 Estimated Creatinine Clearance Calc 62.55 ml/min [facility] Estimated GFR (MDRD) Amer 66 mL/min >60 [facility] Comment on above: GFR Calc Estimated GFR (MDRD) Non-Af Amer 55 mL/min >60 [facility] Comment on above: Non- GFR Calc 26.4 pg 27.0-32.0 [facility] 13.3 % 11.6-14.6 [facility] 39.1 fl 35.1-43.9 [facility] 0.800 % 0.0-0.9 [facility] 0 % 0-5 [facility] 55 mL/min >60 [facility] 66 mL/min >60 [facility] 62.55 ml/min [facility] 7.4 RATIO 10-20 [facility] 5.4 g/dL 2.2-4.2 [facility] 38 U/L 13-75 [facility] 105 U/L 45-117 [facility] 24 U/L 13-56 [facility] 30.0 mmol/L 21.0-32.0 [facility] Platelets bldOrdered By: Haylee Doss on 02-08-2023 Platelets (Bld) [#/Vol] 394 10*3/uL 150-450 [facility] Protein Test strip Ql (U)Ord ered By: Javy Doss on 02-08-2023 Protein Ql (U) 30 mg/dl Negative [facility] Serum or plasma albumin hussein urement (mass/volume)Ordered By: Javy Doss on 02-08-2023 Albumin [Mass/Vol] 3.8 g/dL 3.2-5.0 [facility] Serum or plasma albumin/glob ulin mass ratioOrdered By: Javy Doss on 02-08-2023 Albumin/Globulin [Mass ratio] 0.7 {ratio} 0.9-2.4 [facility] Serum or plasma calcium hussein urement (mass/volume)Ordered By: Javy Doss on 02-08-2023 Calcium [Mass/Vol] 9.7 mg/dL 8.5-10.1 [facility] Serum or plasma creatinine m easurement (mass/volume)Ordered By: Javy Doss on 02-08-2023 Creatinine [Mass/Vol] 1.22 mg/dL 0.55-1.02 [facility] Comment on above: The validity of the calculated GFR & GFRAA in patients over 70 years has not been determined. Clinical correlation is essential. Serum or plasma urea nitroge n measurement (mass/volume)Ordered By: Javy Doss on 02-08-2023 Urea nitrogen [Mass/Vol] 9 mg/dL 7-18 [facility] Squamous epithelial cells de tection in urine sediment by light microscopyOrdered By: Javy Dsos on 02-08-2023 Epithelial cells.squamous LM Ql (Urine sed) 0-5 SEEN /hpf 5-10 [facility] Thin prep Papanicolaou smear with manual screeningOrdered By: Javy Doss on 02-08-2023 Thin prep Papanicolaou smear with manual screening 15 U/L 15-37 [facility] Thin prep Papanicolaou smear with manual screening 8 5-15 [facility] Urine blood detectionOrdered By: Javy Doss on 02-08-2023 RBC Ql (U) Negative Negative [facility] RBC Ql (U) 0 SEEN /hpf 0-5 [facility] Urine clarityOrdered By: Haylee Doss on 02-08-2023 Clarity (U) Sl. Cloudy Clear [facility] Urine color determinationOrd ered By: Javy Doss on 02-08-2023 Color (U) Yellow Yellow [facility] Urine glucose detectionOrder ed By: Javy Doss on 02-08-2023 Glucose Ql (U) 1000 mg/dl Normal [facility] Urine leukocyte esterase det ection by dipstickOrdered By: Javy Doss on 02-08-2023 Leukocyte esterase Test strip Ql (U) 25 /ul Negative [facility] Urine pHOrdered By: Javy Tee gur on 02-08-2023 pH (U) 8.0 [pH] 5.0 - 8.0 [facility] Urine sediment bacteria coun t by microscopy (number/high power field)Ordered By: Javy Doss on 02-08-2023 Bacteria LM.HPF (Urine sed) [#/Area] 0 /[HPF] None Seen [facility] Urine specific gravity measu rementOrdered By: Javy Doss on 02-08-2023 Specific gravity (U) [Rel density] 1.010 1.002-1.030 [facility] Urobilinogen Auto test strip Ql (U)Ordered By: Javy Doss on 02-08-2023 Urobilinogen Ql (U) Normal mg/dl Normal [facility] Absolute lymphocyte countOrd ered By: Fabricio Ismael on 02-04-2023 Lymphocytes Auto (Unsp spec) [#/Vol] 3.25 10*3/uL 0.83-4.51 [facility] Basophil percentageOrdered B y: Fabricio Ismael on 02-04-2023 Basophil percentage 259 mg/dL 74-106 [facility] Basophil percentage 8.1 g/dL 6.4-8.2 [facility] Basophil percentage 0.40 mg/dL 0.20-1.00 [facility] Basophil percentage 138 mmol/L 136-145 [facility] Basophil percentage 3.5 mmol/L 3.5-5.1 [facility] Basophil percentage 103 mmol/L 98-107 [facility] Basophils (Bld) [#/Vol] 8.8 10*3/uL 4.4-11.0 [facility] Basophils (Bld) [#/Vol] 4.9 10*3/uL 2.0-7.7 [facility] Basophils/100 WBC (Bld) 0.3 % 0-1 [facility] Basophils/100 WBC (Bld) 55.7 % 47-70 [facility] Basophils/100 WBC (Bld) 0.5 % 0-5 [facility] Bilirubin [Mass/Vol] 0.40 mg/dL 0.20-1.00 [facility] Comment on above: For patients on eltr ombopag therapy, use of Dimension Harvest TBIL is not recommended. Chloride [Moles/Vol] 103 mmol/L 98-107 [facility] Eosinophils/100 WBC (Bld) 0.5 % 0-5 [facility] Glucose [Mass/Vol] 259 mg/dL 74-106 [facility] Comment on above: Glucose result great er than or equal to 200 mg/dLsuggests DIABETES MELLITUS per A.D.A. criteria. Neutrophils (Bld) [#/Vol] 4.9 10*3/uL 2.0-7.7 [facility] Neutrophils/100 WBC (Bld) 55.7 % 47-70 [facility] Potassium [Moles/Vol] 3.5 mmol/L 3.5-5.1 [facility] Protein [Mass/Vol] 8.1 g/dL 6.4-8.2 [facility] Sodium [Moles/Vol] 138 mmol/L 136-145 [facility] WBC (Bld) [#/Vol] 8.8 10*3/uL 4.4-11.0 [facility] Blood erythrocytes count (nu mber/volume)Ordered By: Fabricio Guevara on 02-04-2023 RBC (Bld) [#/Vol] 4.65 10*6/uL 4.2-5.4 [facility] Blood hemoglobin measurement (mass/volume)Ordered By: Fabricio Guevara on 02-04-2023 Hemoglobin (Bld) [Mass/Vol] 12.5 g/dL 12.0-15.0 [facility] Blood lymphocytes/100 leukoc ytesOrdered By: Fabricio Guevara on 02-04-2023 Lymphocytes/100 WBC (Bld) 37.0 % 19-41 [facility] Blood monocytes/100 leukocyt esOrdered By: Fabricio Guevara on 02-04-2023 Monocytes/100 WBC (Bld) 5.8 % 0-10 [facility] Blood platelet mean volumeOr dered By: Fabricio Guevraa on 02-04-2023 Platelet mean volume (Bld) [Entitic vol] 9.4 fL 6.2-12.0 [facility] Determination of erythrocyte mean corpuscular volume (MCV)Ordered By: Fabricio Guevara on 02-04-2023 MCV (RBC) [Entitic vol] 80.0 fL 81-99 [facility] Hematocrit Auto (Bld) [Volum e fraction]Ordered By: Fabricio Guevara on 02-04-2023 Hematocrit (Bld) [Volume fraction] 37.2 % 37-47 [facility] Laboratory - Chemistry and C hemistry - challengeOrdered By: Fabricio Guevara on 02-04-2023 ALP [Catalytic activity/Vol] 94 U/L 45-117 [facility] ALT [Catalytic activity/Vol] 29 U/L 13-56 [facility] CO2 [Moles/Vol] 25.0 mmol/L 21.0-32.0 [facility] Globulin (S) [Mass/Vol] 4.7 g/dL 2.2-4.2 [facility] Lipase [Catalytic activity/Vol] 51 U/L 13-75 [facility] Comment on above: Please note:LIPASE r evised reference range effective 22. New Lipase methodology. Expected to produce lower values than the previous assay method. NEW Reference Range: 13 - 75 U/L Urea nitrogen/Creatinine [Mass ratio] 7.0 mg/mg - [facility] Laboratory - Hematology and Cell countsOrdered By: Fabricio Guevara on 02-04-2023 Erythrocyte distribution width (RBC) [Entitic vol] 39.2 fL 35.1-43.9 [facility] Erythrocyte distribution width (RBC) [Ratio] 13.6 % 11.6-14.6 [facility] Immature granulocytes/100 WBC (Bld) 0.700 % 0.0-0.9 [facility] Comment on above: IG% - Immature Granu locytes (promyelocytes, myelocytes and metamyelocytes) > 1% indicates that a LEFT SHIFT is Present. MCH (RBC) [Entitic mass] 26.9 pg 27.0-32.0 [facility] Nucleated RBC/100 WBC (Bld) [Ratio] 0 % 0-5 [facility] MCHC Auto (RBC) [Mass/Vol]Or dered By: Fabricio Guevara on 02-04-2023 MCHC (RBC) [Mass/Vol] 33.6 g/dL 32-36 [facility] No Panel InformationOrdered By: Fabricio Guevara on 02-04-2023 Estimated GFR (MDRD) Amer 84 mL/min >60 [facility] Estimated GFR (MDRD) Non-Af Amer 69 mL/min >60 [facility] 26.9 pg 27.0-32.0 [facility] 13.6 % 11.6-14.6 [facility] 39.2 fl 35.1-43.9 [facility] 0.700 % 0.0-0.9 [facility] 0 % 0-5 [facility] 69 mL/min >60 [facility] 84 mL/min >60 [facility] 7.0 RATIO 04-30 [facility] 4.7 g/dL 2.2-4.2 [facility] 51 U/L 13-75 [facility] 94 U/L 45-117 [facility] 29 U/L 13-56 [facility] 25.0 mmol/L 21.0-32.0 [facility] Platelets bldOrdered By: Chidi Guevara on 02-04-2023 Platelets (Bld) [#/Vol] 358 10*3/uL 150-450 [facility] Serum or plasma albumin hussein urement (mass/volume)Ordered By: Fabricio Guevara on 02-04-2023 Albumin [Mass/Vol] 3.4 g/dL 3.2-5.0 [facility] Serum or plasma albumin/glob ulin mass ratioOrdered By: Fabricio Guevara on 02-04-2023 Albumin/Globulin [Mass ratio] 0.7 {ratio} 0.9-2.4 [facility] Serum or plasma calcium hussein urement (mass/volume)Ordered By: Fabricio Guevara on 02-04-2023 Calcium [Mass/Vol] 9.2 mg/dL 8.5-10.1 [facility] Serum or plasma creatinine m easurement (mass/volume)Ordered By: Fabricio Guevara on 02-04-2023 Creatinine [Mass/Vol] 1.00 mg/dL 0.55-1.02 [facility] Comment on above: The validity of the calculated GFR & GFRAA in patients over 70 years has not been determined. Clinical correlation is essential. Serum or plasma urea nitroge n measurement (mass/volume)Ordered By: Fabricio Guevara on 02-04-2023 Urea nitrogen [Mass/Vol] 7 mg/dL 7-18 [facility] Thin prep Papanicolaou smear with manual screeningOrdered By: Fabricio Guevara on 02-04-2023 Thin prep Papanicolaou smear with manual screening 18 U/L 15-37 [facility] Thin prep Papanicolaou smear with manual screening 10 5-15 [facility] CBC W Auto Differential pane l (Bld)Ordered By: Yashira Cleaning on 01-24-2023 Basophils (Bld) [#/Vol] 0.0 10*3/uL 0.0 - 0.2 10*3/uL [facility] Basophils/100 WBC (Bld) 0.3 % 0.0 - 2.0 % [facility] Eosinophils (Bld) [#/Vol] 0.0 10*3/uL 0.0 - 0.5 10*3/uL [facility] Eosinophils/100 WBC (Bld) 0.3 % Low 1.0 - 6.0 % [facility] Erythrocyte distribution width (RBC) [Ratio] 13.9 % 11.5 - 14.5 % [facility] Hematocrit (Bld) [Volume fraction] 37.2 % 35.0 - 47.0 % [facility] Hemoglobin (Bld) [Mass/Vol] 12.4 g/dL 11.7 - 16.0 g/dL [facility] Immature granulocytes (Bld) [#/Vol] 0.1 10*3/uL High NINF - 0.0 10*3/uL [facility] Immature granulocytes/100 WBC (Bld) 0.6 % High NINF - 0.0 % [facility] Interpretation and review of laboratory results Abnormal [facility] Lymphocytes (Bld) [#/Vol] 2.6 10*3/uL 1.0 - 4.3 10*3/uL [facility] Lymphocytes/100 WBC (Bld) 33.6 % 20.0 - 40.0 % [facility] MCH (RBC) [Entitic mass] 26.3 pg 26.0 - 34.0 pg [facility] MCHC (RBC) [Mass/Vol] 33.3 % 32.0 - 36.0 % [facility] MCV (RBC) [Entitic vol] 79.0 fL Low 80.0 - 98.0 fL [facility] Monocytes (Bld) [#/Vol] 0.5 10*3/uL 0.0 - 0.8 10*3/uL [facility] Monocytes/100 WBC (Bld) 5.9 % 2.0 - 10.0 % [facility] Neutrophils (Bld) [#/Vol] 4.6 10*3/uL 1.8 - 7.0 10*3/uL [facility] Neutrophils/100 WBC (Bld) 59.3 % 40.0 - 80.0 % [facility] Platelet mean volume (Bld) [Entitic vol] 9.1 fL 7.4 - 12.4 fL [facility] Comment on above: MPV is a calculated measurement using platelet volume ratio Platelets (Bld) [#/Vol] 342 10*3/uL 140 - 440 10*3/uL [facility] RBC (Bld) [#/Vol] 4.71 10*6/uL 3.8 - 5.20 10*6/uL [facility] WBC (Bld) [#/Vol] 7.8 10*3/uL 3.6 - 10.7 10*3/uL [facility] Comprehensive metabolic 1998 panelon 01-24-2023 Albumin [Mass/Vol] 4.2 g/dL 3.5 - 5.0 g/dL [facility] ALP [Catalytic activity/Vol] 74 U/L 38 - 126 U/L [facility] ALT [Catalytic activity/Vol] 20 U/L 0 - 34 U/L [facility] Anion gap [Moles/Vol] 10 mmol/L 3 - 13 mmol/L [facility] AST [Catalytic activity/Vol] 28 U/L 15 - 46 U/L [facility] Bilirubin [Mass/Vol] 0.7 mg/dL 0.2 - 1 .3 mg/dL [facility] Calcium [Mass/Vol] 9.4 mg/dL 8.4 - 10. 4 mg/dL [facility] Chloride [Moles/Vol] 100 mmol/L 98 - 10 7 mmol/L [facility] CO2 [Moles/Vol] 25 mmol/L 22 - 30 mmol/L [facility] Creatinine [Mass/Vol] 0.78 mg/dL 0.52 - 1.04 mg/dL [facility] GFR/1.73 sq M.predicted MDRD (S/P/Bld) [Vol rate/Area] - PINF [facility] Comment on above: Calculation based on the Chronic Kidney Disease Epidemiology Collaboration (CKD-EPI) equation refit without adjustment for race Glucose [Mass/Vol] 220 mg/dL High 70 - 100 mg/dL [facility] Interpretation and review of laboratory results Abnormal [facility] Potassium [Moles/Vol] 3.6 mmol/L 3.5 - 5.1 mmol/L [facility] Protein [Mass/Vol] 8.1 g/dL 6.3 - 8.2 g/dL [facility] Sodium [Moles/Vol] 135 mmol/L 135 - 145 mmol/L [facility] Urea nitrogen [Mass/Vol] 9 mg/dL 7 - 17 mg/dL [facility] ECG 12-LEADon 01-24-2023 ECG 12-LEAD IMPRESSION: SINUS RHYTHM VENTRICULAR PREMATURE COMPLEX CONSIDER LEFT VENTRICULAR HYPERTROPHY No previous ECG available for comparison Electronically Signed On 01-24-2023 11:21:48 EDT by Abdirizak Ramirez [facility] ED Nursing Noteon 01-24-2023 ED Nursing Note Patient to room 15 w ith c/o vomiting for 3 weeks. Patient reports being at [facility] and being told it was [facility], and there was nothing more they could do for her. Patient reports having Zofran at home that she doesn't take, because it has not relieved her symptoms. V/S obtained, call light within reach. Normal [facility] ED Provider Noteon ED Provider Note [facility] ED EMERGENCY DEPARTMENT ENCOUNTER Pt Name: Ghislaine [...] - Normal (more content not included)... Normal [facility] Laboratory - Chemistry and C hemistry - challengeon 01-24-2023 Troponin I.cardiac [Mass/Vol] ng/mL 0.000 - 0.034 ng/mL [facility] Lipase [Catalytic activity/Vol] 130 U/L 23 - 300 U/L [facility] Magnesium [Mass/Vol] 1.8 mg/dL 1.6 - 2 .3 mg/dL [facility] Beta HCG ( test) Ql Negative Negative [facility] Comment on above: Please note: Very di lute urine specimens, as indicated by a low specific gravity, may not contain signs sales representative levels of hCG. If is still suspected, a first morning urine specimen should be collected 48 hours later and tested. Beta HCG ( test) Ql (U) is the most common reason for HCG in urine, although choriocarcinoma, hydatidiform mole, and certain nontrophoblastic malignancies also result in detectable urinary HCG levels. Sensitivity = 20mIU/mL. [facility] No Panel Informationon 01-24 P Erie -3 degrees [facility] ME Interval 128 ms [facility] QRS [place] -11 degrees [facility] QRSD Interval 86 ms [facility] h QT Interval 396 ms [facility] QTC Interval 425 ms [facility] T Wave [place] 8 degrees [facility] SINUS RHYTHM VENTRICULAR PREMATURE COMPLEX CONSIDER LEFT VENTRICULAR HYPERTROPHY No previous ECG available for comparison Electronically Signed On 01-24-2023 11:21:48 EDT by Abdirizak Ramirez CV Abdirizak Camacho MD - 01/24/2023 IMPRESSION: SINUS RHYTHM VENTRICULAR PREMATURE COMPLEX CONSIDER LEFT VENTRICULAR HYPERTROPHY No previous ECG available for comparison Electronically Signed On 01-24-2023 11:21:48 EDT by Abdirizak Ramirez [facility] Interpretation and review of laboratory results Normal [facility] Troponin I.cardiac [Mass/Vol ]on 01-24-2023 Interpretation and review of laboratory results Normal [facility] Patients with high levels of Biotin oral intake (ie >5 mg/day) may have falsely decreased Troponin levels. [facility] Urinalysis complete panel (U )on 01-24-2023 Amorphous Crystals, Urine Few Abnormal Negative /HPF [facility] Bacteria LM.HPF (Urine sed) [#/Area] Few Abnormal Negative /HPF [facility] Bilirubin Ql (U) Negative Negative mg/dL [facility] Clarity (U) Turbid Abnormal Clear [facility] Color (U) Yellow Lt. Yellow [facility] Epithelial cells.squamous LM.HPF (Urine sed) [#/Area] 11-25 Abnormal [facility] h Glucose Ql (U) 500 mg/dL Abnormal Normal (<70) [facility] Hemoglobin Ql (U) Negative Negative mg/dL [facility] Interpretation and review of laboratory results Abnormal [facility] Ketones (U) [Mass/Vol] 20 mg/dL Abnormal Negative [facility] Leukocyte esterase Test strip Ql (U) 250 Abnormal Negative Ash[place]/uL [facility] Mucus LM.HPF (Urine sed) [#/Area] Few Negative /LPF [facility] Nitrite Ql (U) Negative Negative [facility] th pH (U) 6.5 [pH] 5.0 - 8.0 pH [facility] Protein (U) [Mass/Vol] 20 mg/dL Abnormal Negative [facility] RBC LM.HPF (Urine sed) [#/Area] 0-2 [facility] Specific gravity (U) [Rel density] 1.016 1.005 - 1.030 [facility] Urobilinogen (U) [Mass/Vol] Normal Normal (0-1) mg/dL [facility] Volume, [facility]rine [facility] W[facility] LM.HPF (Urine sed) [#/Area] 6-10 Abnormal [facility] Vital signson 01-24-2023 Heart rate 69 /min bpm [facility] CBC + DIFFon 01-17-2023 Baso # 0.00 x10EE3/UL Normal 0.00 - 0.10 [facility] Comment on above: Performed By: #### 2 [id number] #### [facility],[address] [place] [address]7934 Basophils/100 WBC (Bld) 0.4 % Normal 0.0 - 2.0 [facility] Comment on above: Performed By: #### 2 [id number] #### [facility],[address] [place] [address]884 CBC + DIFF Normal [facility] Comment on above: Result Comment: CBC- COMPLETE BLOOD COUNT Performed By: #### 2 [id number] #### [facility],[address] [place] [address] 79346 EO # 0.00 x10EE3/UL Normal 0.00 - 0.50 [facility] Comment on above: Performed By: #### 2 [id number] #### [facility],[address] [place] [address] 85943 Eosinophils/100 WBC (Bld) 0.3 % Normal 0.0 - 7.0 [facility] Comment on above: Performed By: #### 2 [id number] #### [facility],[address] [place] [address] 15693 Erythrocyte distribution width (RBC) [Ratio] 15.2 % Normal 12.0 - 15.6 [facility] Comment on above: Performed By: #### 2 [id number] #### [facility],[address] [place] [address] Hematocrit (Bld) [Volume fraction] 40.9 % Normal 34.0 - 46.0 [facility] Comment on above: Performed By: #### 2 [id number] #### [facility],[address] [place] [address] Hemoglobin (Bld) [Mass/Vol] 13.6 g/dL Normal 12.0 - 16.0 [facility] Comment on above: Performed By: #### 2 [id number] #### [facility],[address] [place] [address] Lymph # 3.30 x10EE3/UL High 0.80 - 2.80 [facility] Comment on above: Performed By: #### 2 [id number] #### [place] [address] Lymphocytes/100 WBC (Bld) 30.0 % Normal 20.0 - 45.0 [facility] Comment on above: Performed By: #### 2 [id number] #### [facility],[address] [place] [address] MANUAL DIFF N/A Normal [facility] Comment on above: Performed By: #### 2 [id number] #### [facility],[address] [place] [address] MCH (RBC) [Entitic mass] 27 pg Normal 27 - 33 [facility] Comment on above: Performed By: #### 2 [id number] #### [facility],[address] [place], [place] [phone] MCHC 33 X10 3 Normal 32 - 36 [facility] Comment on above: Performed By: #### 2 [id number] #### [facility],[address] [place], [place] [phone] MCV (RBC) [Entitic vol] 80 fL Normal 80 - 99 [facility] Comment on above: Performed By: #### 2 [id number] #### [facility],[address] [place] [address] Young # 0.80 x10EE3/UL Normal 0.20 - 1.00 [facility] Comment on above: Performed By: #### 2 [id number] #### [facility],[address] [place] [address] 81919 MONOS % 7.6 % Normal 0.0 - 10.0 [facility] Comment on above: Performed By: #### 2 [id number] #### [facility],[address] [place] [address] 76651 Morphology Franky (Bld) [Interp] N/A Normal [facility] Comment on above: Performed By: #### 2 [id number] #### [facility],[address] [place] [address] 80659 Neut # 6.80 x10EE3/UL Normal 1.50 - 7.10 [facility] Comment on above: Performed By: #### 2 [id number] #### [facility],[address] [place] [address] 77979 Neutrophils/100 WBC (Bld) 61.7 % Normal 46.0 - 76.0 [facility] Comment on above: Performed By: #### 2 [id number] #### [facility],[address] [place] [address] 78356 PLATELET 504 x10EE3/UL High 150 - 450 [facility] Comment on above: Performed By: #### 2 67821 #### [facility],[address] [place] [address] 16750 Platelet mean volume (Bld) [Entitic vol] 7.2 fL Normal 6.6 - 10.5 [facility] Comment on above: Result Comment: AUTO MATED DIFFERENTIAL Performed By: #### 2 [id number] #### [facility],[address] [place] [address] 44279 RBC 5.14 x 10EE6/UL Normal 4.10 - 5.30 [facility] Comment on above: Performed By: #### 2 87711 #### [facility],[address] [place] [address] 27455 WBC 11.1 x 10EE3/UL High 4.5 - 10.8 [facility] Comment on above: Performed By: #### 2 [id number] #### [facility],[address] [place], [place] [phone] CMP with eGFRon 01-17-2023 AGE 32 years Normal [facility] Comment on above: Performed By: #### 2 92702 #### [facility],[address] [place], [place] [phone] Albumin [Mass/Vol] 3.6 g/dL Normal 3.4 - 5.0 [facility] Comment on above: Performed By: #### 2 [id number] #### [facility],[address] [place] [address] Albumin/Globulin [Mass ratio] 0.7 {ratio} Low 0.9 - 1.6 [facility] Comment on above: Performed By: #### 2 [id number] #### [facility],[address] [place], [place] [id number] ALK PHOS 73 U/L Normal 46 - 116 [facility] Comment on above: Performed By: #### 2 44875 #### [facility],[address] [place], [place] [id number] ALT [Catalytic activity/Vol] 21 U/L Normal 14 - 59 [facility] Comment on above: Performed By: #### 2 10429 #### [facility],[address] [place] [address] Anion gap [Moles/Vol] 17 mmol/L Normal 10 - 20 [facility] Comment on above: Performed By: #### 2 68154 #### [facility],[address],[place] [address] AST [Catalytic activity/Vol] 12 U/L Low 13 - 39 [facility] Comment on above: Performed By: #### 2 75084 #### [facility],[address] [place] [address] B/C RATIO 9 ratio Normal 0 - 30 [facility] Comment on above: Performed By: #### 2 53770 #### [facility],[address] [place] [address] Bilirubin [Mass/Vol] 0.7 mg/dL Normal 0.2 - 1.0 [facility] Comment on above: Performed By: #### 2 61663 #### [facility],[address] [place] [address] Calcium [Mass/Vol] 9.1 mg/dL Normal 8.5 - 10.1 [facility] Comment on above: Performed By: #### 2 91274 #### [facility],[address] [place] [address]148 Chloride [Moles/Vol] 98 mmol/L Normal 98 - 107 [facility] Comment on above: Performed By: #### 2 75884 #### [facility],[address] [place] [address] CMP with eGFR Normal [facility] Comment on above: Result Comment: COMP REHENSIVE METABOLIC PANEL Performed By: #### 2 09727 #### [facility],[address] [place] [address] 12583 CO2 [Moles/Vol] 23.6 mmol/L Normal 21.0 - 32.0 [facility] Comment on above: Performed By: #### 2 84951 #### [facility],[address] [place] [address] Creatinine [Mass/Vol] 1.10 mg/dL High 0.55 - 1.02 [facility] Comment on above: Performed By: #### 2 35799 #### [facility],[address] [place] [address]70 eGFR 58 ML/MINUTE Low 60 - 999 [facility] Comment on above: Performed By: #### 2 03488 #### [address] [address] GFR/1.73 sq M.predicted among non-blacks MDRD (S/P/Bld) [Vol rate/Area] mL/min/{1.73_m2} Normal 60 - 999 [facility] Comment on above: Result Comment: ACCO RDING TO THE NATIONAL KIDNEY DISEASE EDUCATION PROGRAM(NKDE), A NORMAL eGFR IS A VALUE GREATER THAN OR EQUAL TO 60 ML/MIN/1.73 SQ METERS. CHRONIC KIDNEY DISEASE: <60mL/MIN/1.73 SQ METERS KIDNEY FAILURE: <15mL/MIN/1.73 SQ METERS THIS TEST SHOULD ONLY BE USED FOR PATIENTS 18 YEARS OF AGE AND OLDER. Performed By: #### 2 21763 #### [address] [address] Globulin (S) [Mass/Vol] 5.1 g/dL High 1.5 - 3.8 [facility] Comment on above: Performed By: #### 2 76698 #### [address] [address] Glucose [Mass/Vol] 191 mg/dL High 74 - 106 [facility] Comment on above: Performed By: #### 2 58456 #### [address] [address] Potassium [Moles/Vol] 3.7 mmol/L Normal 3.5 - 5.1 [facility] Comment on above: Performed By: #### 2 87577 #### [address] [address] Protein [Mass/Vol] 8.7 g/dL High 6.4 - 8.2 [facility] Comment on above: Performed By: #### 2 31454 #### [address] [place] [address] Sodium [Moles/Vol] 135 mmol/L Low 136 - 145 [facility] Comment on above: Performed By: #### 2 63973 #### [facility],[address] [place] [address] Urea nitrogen [Mass/Vol] 10 mg/dL Normal 7 - 18 [facility] Comment on above: Performed By: #### 2 83178 #### [facility],[address] [place] [address] ABDOMEN/PELVIS Won 2022 CT ABDOMEN/PELVIS [place] [address] Patient: GHISLAINE GIVENS Phone#: : 1990 Age: 32 Gender: F Pt. Type: ER Account: [id number] Location: [facility] Ordering: GERALDINE ROLAND Exam Date: 01/17/2023/8:31 Family Phys: Charge Code: [id number] Physician: Denali Order #: [id number] Dose#: PROCEDURE: CT ABDOMEN/PELVIS WITH CONTRAST COMPARISON: [facility], CT, ABDOMEN/PELVIS W CON, 01/24/2022, 18:58. [...] 32 Gender: F Pt. Type: ER Account: [id number] Location: 052 Ordering: GERALDINE ROLAND Exam Date: 01/17/2023/8:31 Family Phys: Charge Code: [id number] Physician: Denali Order #: [id number] Dose#: OTHER: Negative. CONCLUSION: 1. UNDER FILLING VERSUS MUCOSAL THICKENING AT THE RECTOSIGMOID COLON. Dictated by: Cristy Penaloza MD on 01/17/2023 at 9:14 Approved by: Cristy Penaloza MD on 01/17/2023 at 9:19 Normal [facility] DRUG SCREEN URINE MEDICon AMPHETAMINES Negative Normal [facility] Comment on above: Performed By: #### 2 82428 #### [facility],[address] [place] [address] B-DIAZEPINES Negative Normal [facility] Comment on above: Performed By: #### 2 92527 #### [facility],[address] [place] [address] BARBITURATES Negative Normal [facility] Comment on above: Performed By: #### 2 94423 #### [facility],[address] [place] [address] COCAINE Negative Normal [facility] Comment on above: Performed By: #### 2 39760 #### [facility],[address] [place] [address] DRUG SCREEN URINE MEDIC Normal [facility] Comment on above: Result Comment: DRUG SCREEN - URINE Performed By: #### 2 91160 #### [facility],[address] [place] [address] METHADONE Negative Normal [facility] Comment on above: Performed By: #### 2 88934 #### [facility],[address] [place] [address] OPIATES Negative Normal [facility] Comment on above: Performed By: #### 2 97278 #### [facility],[address] [place] [address] PCP Negative Normal [facility] Comment on above: Performed By: #### 2 70264 #### [facility],[address] [place] [address] THC Positive Normal [facility] Comment on above: Result Comment: ERASTO ENTS RECEIVING PROTON PUMP INHIBITORS MAY DEMONSTRATE FALSE POSITIVE THC/CANNABINOID RESULTS. AN ALTERNATIVE CONFIRMATORY METHOD SHOULD BE CONSIDERED TO VERIFY POSITIVE RESULTS. Performed By: #### 2 60189 #### [facility],[address] [place], [place] [phone] LIPASEon 01-17-2023 Lipase [Catalytic activity/Vol] 143.0 U/L Normal 73.0 - 393 [facility] Comment on above: Performed By: #### 2 17492 #### [facility],[address] [place], [place] [phone] SERUM QUALon 01-17 EXTERNAL QC DONE? YES Normal [facility] Comment on above: Performed By: #### 2 26754 #### [facility],[address] [place], [place] [phone] INTERNAL QC PASS Normal [facility] Comment on above: Performed By: #### 2 71473 #### [facility],[address] [place] [address] SER Negative Normal NEGATIVE [facility] Comment on above: Performed By: #### 2 87501 #### [facility],[address] [place] [address] 24031 URINALYSISon 01-17-2023 Amorphous NONE Normal [facility] Comment on above: Performed By: #### 2 49485 #### [facility],[address] [place] [address] 29359 Bacteria 1+ Normal [facility] Comment on above: Performed By: #### 2 53538 #### [facility],[address] [place] [address]46 Bilirubin Ql (U) Negative Normal NORMAL: NEGATIVE [facility] Comment on above: Performed By: #### 2 59650 #### [facility],[address] [place], [place] [phone] Casts NONE Normal [facility] Comment on above: Performed By: #### 2 69842 #### [facility],[address] [place], [place] [phone] Clarity (U) clear Normal NORMAL: CLEAR [facility] Comment on above: Performed By: #### 2 34687 #### [facility],[address] [place] [address] Color (U) p.yel Normal NORMAL: YELLOW [facility] Comment on above: Performed By: #### 2 21046 #### [facility],[address] [place] [address] 85018 Crystals LM Nom (Urine sed) NONE Normal [facility] Comment on above: Performed By: #### 2 69427 #### [facility],[address] [place] [address] 23424 Epi Cells MODERATE Normal [facility] Comment on above: Performed By: #### 2 69265 #### [facility],[address] [place] [address] 16015 Glucose Ql (U) 50 Abnormal NORMAL: NORMAL [facility] Comment on above: Performed By: #### 2 11973 #### [facility],[address] [place], [place] [phone] Hemoglobin Ql (U) Negative Normal NORMAL: NEGATIVE [facility] Comment on above: Performed By: #### 2 13802 #### [facility],[address] [place], [place] [phone] Ketone 15 Abnormal NORMAL: NEGATIVE [facility] Comment on above: Performed By: #### 2 75983 #### [facility],[address] [place] [address] Leukocytes 100 Abnormal NORMAL: NEGATIVE [facility] Comment on above: Performed By: #### 2 96122 #### [facility],[address] [place] [address] Mucous NONE Normal [facility] Comment on above: Performed By: #### 2 08032 #### [facility],[address] [place] [address] Nitrite Ql (U) Negative Normal NORMAL: NEGATIVE [facility] Comment on above: Performed By: #### 2 90112 #### [facility],[address] [place] [address] pH (U) 7 [pH] Normal NORMAL: 5.0-8.0 [facility] Comment on above: Performed By: #### 2 23570 #### [facility],[address] [place] [address] Protein Ql (U) Negative Normal NORMAL: NEGATIVE [facility] Comment on above: Performed By: #### 2 88375 #### [facility],[address] [place], [place] [phone] Rbc NONE Normal 0-3/hpf [facility] Comment on above: Performed By: #### 2 24382 #### [facility],[address] [place] [address] Sp [place] 1.005 Low NORMAL: 1.010-1.030 [facility] Comment on above: Performed By: #### 2 73646 #### [facility],[address] [place], [place] [address] Specimen Type UNSPECIFIED Normal [facility] Comment on above: Performed By: #### 2 58994 #### [facility],[address] [place] [address] Urinalysis dipstick W Reflex Microscopic panel (U) SEE BELOW Normal [facility] Comment on above: Result Comment: MICR OSCOPIC Performed By: #### 2 56997 #### [facility],[address] [place] [address] Urobilinog NORM Normal NORMAL: NORMAL [facility] Comment on above: Performed By: #### 2 96699 #### [facility],[address] [place] [address] Wbc 1-5 Normal 0-5/hpf [facility] Comment on above: Performed By: #### 2 44351 #### [facility],[address] [place] [address] Yeast NONE Normal [facility] Comment on above: Performed By: #### 2 51564 #### [facility],[address] [place] [address] Absolute lymphocyte countOrd ered By: Lexus Villatoro on 01-15-2023 Lymphocytes Auto (Unsp spec) [#/Vol] 3.20 10*3/uL 0.83-4.51 [facility] Basophil percentageOrdered B y: Lexus Villatoro on 01-15-2023 Basophil percentage 154 mg/dL 74-106 [facility] Basophil percentage 7.1 g/dL 6.4-8.2 [facility] Basophil percentage 0.60 mg/dL 0.20-1.00 [facility] Basophil percentage 136 mmol/L 136-145 [facility] Basophil percentage 3.1 mmol/L 3.5-5.1 [facility] Basophil percentage 105 mmol/L 98-107 [facility] Basophils (Bld) [#/Vol] 9.4 10*3/uL 4.4-11.0 [facility] Basophils (Bld) [#/Vol] 5.3 10*3/uL 2.0-7.7 [facility] Basophils/100 WBC (Bld) 0.3 % 0-1 [facility] Basophils/100 WBC (Bld) 56.4 % 47-70 [facility] Bilirubin [Mass/Vol] 0.60 mg/dL 0.20-1.00 [facility] Comment on above: For patients on eltr ombopag therapy, use of Dimension Harvest TBIL is not recommended. Chloride [Moles/Vol] 105 mmol/L 98-107 [facility] Eosinophils/100 WBC (Bld) 0.3 % 0-5 [facility] Glucose [Mass/Vol] 154 mg/dL 74-106 [facility] Comment on above: Fasting Glucose resu lt greater than or equal to 126 mg/dL suggests DIABETES MELLITUS per A.D.A. criteria. Neutrophils (Bld) [#/Vol] 5.3 10*3/uL 2.0-7.7 [facility] Neutrophils/100 WBC (Bld) 56.4 % 47-70 [facility] Potassium [Moles/Vol] 3.1 mmol/L 3.5-5.1 [facility] Protein [Mass/Vol] 7.1 g/dL 6.4-8.2 [facility] Sodium [Moles/Vol] 136 mmol/L 136-145 [facility] WBC (Bld) [#/Vol] 9.4 10*3/uL 4.4-11.0 [facility] Blood erythrocytes count (nu mber/volume)Ordered By: Lexus Villatoro on 01-15-2023 RBC (Bld) [#/Vol] 4.43 10*6/uL 4.2-5.4 [facility] Blood hemoglobin measurement (mass/volume)Ordered By: Lexus Villatoro on 01-15-2023 Hemoglobin (Bld) [Mass/Vol] 11.7 g/dL 12.0-15.0 [facility] Blood lymphocytes/100 leukoc ytesOrdered By: Lexus Villatoro on 01-15-2023 Lymphocytes/100 WBC (Bld) 34.2 % 19-41 [facility] Blood monocytes/100 leukocyt esOrdered By: Lexus Villatoro on 07-07-2023 Monocytes/100 WBC (Bld) 8.2 % 0-10 [facility] Blood platelet mean volumeOr dered By: Lexus Villatoro on 01-15-2023 Platelet mean volume (Bld) [Entitic vol] 9.3 fL 6.2-12.0 [facility] Determination of erythrocyte mean corpuscular volume (MCV)Ordered By: Lexus Villatoro on 01-15-2023 MCV (RBC) [Entitic vol] 80.4 fL 81-99 [facility] Glucose Glucometer (BldC) [M ass/Vol]Ordered By: Lexus Villatoro on 01-15-2023 Glucose [Mass/Vol] 247 mg/dL 74-106 [facility] Comment on above: MANAGEMENT OF PATIEN T CARE PER NURSING PROTOCOL Hematocrit Auto (Bld) [Volum e fraction]Ordered By: Lexus Villatoro on 01-15-2023 Hematocrit (Bld) [Volume fraction] 35.6 % 37-47 [facility] Laboratory - Chemistry and C hemistry - challengeOrdered By: Lexus Villatoro on 01-15-2023 ALP [Catalytic activity/Vol] 54 U/L 45-117 [facility] ALT [Catalytic activity/Vol] 14 U/L 13-56 [facility] CO2 [Moles/Vol] 26.0 mmol/L 21.0-32.0 [facility] Globulin (S) [Mass/Vol] 4.1 g/dL 2.2-4.2 [facility] Magnesium [Mass/Vol] 2.0 mg/dL 1.6-2.6 [facility] Urea nitrogen/Creatinine [Mass ratio] 6.6 mg/mg 10-20 [facility] Laboratory - Hematology and Cell countsOrdered By: Lexus Villatoro on 01-15-2023 Erythrocyte distribution width (RBC) [Entitic vol] 40.1 fL 35.1-43.9 [facility] Erythrocyte distribution width (RBC) [Ratio] 13.8 % 11.6-14.6 [facility] Immature granulocytes/100 WBC (Bld) 0.600 % 0.0-0.9 [facility] Comment on above: IG% - Immature Granu locytes (promyelocytes, myelocytes and metamyelocytes) > 1% indicates that a LEFT SHIFT is Present. MCH (RBC) [Entitic mass] 26.4 pg 27.0-32.0 [facility] Nucleated RBC/100 WBC (Bld) [Ratio] 0 % 0-5 [facility] MCHC Auto (RBC) [Mass/Vol]Or dered By: Lexus Villatoro on 01-15-2023 MCHC (RBC) [Mass/Vol] 32.9 g/dL 32-36 [facility] No Panel InformationOrdered By: Lexus Villatoro on 01-15-2023 Estimated Creatinine Clearance Calc 84.62 ml/min [facility] Estimated GFR (MDRD) Amer 93 mL/min >60 [facility] Comment on above: GFR Calc Estimated GFR (MDRD) Non-Af Amer 77 mL/min >60 [facility] Comment on above: Non- GFR Calc Thyroid Stimulating Hormone (TSH) 2.30 uIU/mL 0.358-3.74 [facility] 26.4 pg 27.0-32.0 [facility] 13.8 % 11.6-14.6 [facility] 40.1 fl 35.1-43.9 [facility] 0.600 % 0.0-0.9 [facility] 0 % 0-5 [facility] 77 mL/min >60 [facility] 93 mL/min >60 [facility] 84.62 ml/min [facility] 6.6 RATIO 10-20 [facility] 4.1 g/dL 2.2-4.2 [facility] 54 U/L 45-117 [facility] 14 U/L 13-56 [facility] 2.0 mg/dL 1.6-2.6 [facility] 26.0 mmol/L 21.0-32.0 [facility] 2.30 uIU/mL 0.358-3.74 [facility] Platelets bldOrdered By: Porsche Villatoro on 01-15-2023 Platelets (Bld) [#/Vol] 361 10*3/uL 150-450 [facility] Serum or plasma albumin hussein urement (mass/volume)Ordered By: Lexus Villatoro on 01-15-2023 Albumin [Mass/Vol] 3.0 g/dL 3.2-5.0 [facility] Serum or plasma albumin/glob ulin mass ratioOrdered By: Lexus Villatoro on 01-15-2023 Albumin/Globulin [Mass ratio] 0.7 {ratio} 0.9-2.4 [facility] Serum or plasma calcium hussein urement (mass/volume)Ordered By: Lexus Villatoro on 01-15-2023 Calcium [Mass/Vol] 8.2 mg/dL 8.5-10.1 [facility] Serum or plasma creatinine m easurement (mass/volume)Ordered By: Lexus Villatoro on 01-15-2023 Creatinine [Mass/Vol] 0.91 mg/dL 0.55-1.02 [facility] Comment on above: The validity of the calculated GFR & GFRAA in patients over 70 years has not been determined. Clinical correlation is essential. Serum or plasma urea nitroge n measurement (mass/volume)Ordered By: Lexus Villatoro on 01-15-2023 Urea nitrogen [Mass/Vol] 6 mg/dL 7-18 [facility] Thin prep Papanicolaou smear with manual screeningOrdered By: Lexus Villatoro on 01-15-2023 Thin prep Papanicolaou smear with manual screening 13 U/L 15-37 [facility] Thin prep Papanicolaou smear with manual screening 5 5-15 [facility] Bacteria identified Cx Nom ( U)Ordered By: Willie Dhillon on 01-14-2023 Culture, urine Positive [facility] Basophil percentageOrdered B y: Willie Dhillon on 01-14-2023 Basophil percentage 1.3 mmol/L 0.4-2.0 [facility] Lactate [Moles/Vol] 1.3 mmol/L 0.4-2.0 [facility] Basophil percentage 0-5 SEEN /hpf 0-5 [facility] Beta hCG serum qualOrdered B y: Willie Dhillon on 01-14-2023 Beta HCG ( test) Ql Negative [facility] Bilirubin Test strip Ql (U)O rdered By: Willie Dhillon on 01-14-2023 Bilirubin Ql (U) Negative Negative [facility] Culture, urineOrdered By: Reji March on 01-14-2023 Bacteria identified Cx Nom (U) Positive [facility] Ketones Test strip Ql (U)Ord ered By: Willie Dhillon on 07-06-2023 Ketones Ql (U) 5 mg/dl Negative [facility] Laboratory - Drug toxicology Ordered By: Lexus Villatoro on 01-14-2023 Amphetamines Ql (U) Negative <1000 ng/mL [facility] Benzodiazepines Ql (U) Negative < 200 ng/mL [facility] Cannabinoids Screen Ql (U) Positive < 50 ng/mL [facility] Cocaine Ql (U) Negative < 300 ng/mL [facility] Opiates Ql (U) Negative < 300 ng/mL [facility] Mucus LM Ql (Urine sed)Order ed By: Willie Dhillon on 01-14-2023 Mucus Ql (Urine sed) 0 SEEN /hpf [facility] Nitrite Test strip Ql (U)Ord ered By: Willie Dhillon on 01-14-2023 Nitrite Ql (U) Negative Negative [facility] No Panel InformationOrdered By: Lexus Villatoro on 01-14-2023 MDMA (Ecstasy) Screen Negative < 500 ng/mL [facility] Urine Barbiturates Screen Negative < 200 ng/mL [facility] Urine Drug Screen Comment [facility] Comment on above: CONFIRMATORY TESTING FOR [...] Urine Methadone Screen Negative < 300 ng/mL [facility] Negative < 300 ng/mL [facility] Positive < 50 ng/mL [facility] Protein Test strip Ql (U)Ord ered By: Willie Dhillon on 01-14-2023 Protein Ql (U) 15 mg/dl Negative [facility] Squamous epithelial cells de tection in urine sediment by light microscopyOrdered By: Willie Dhillon on 01-14-2023 Epithelial cells.squamous LM Ql (Urine sed) 0-5 SEEN /hpf 5-10 [facility] Urine blood detectionOrdered By: Willie Dhillon on 01-14-2023 RBC Ql (U) 10 /ul Negative [facility] RBC Ql (U) 0-5 SEEN /hpf 0-5 [facility] Urine clarityOrdered By: Heath Dhillon on 01-14-2023 Clarity (U) Clear Clear [facility] Urine color determinationOrd ered By: Willie Dhillon on 01-14-2023 Color (U) Yellow Yellow [facility] Urine glucose detectionOrder ed By: Willie Dhillon on 01-14-2023 Glucose Ql (U) 250 mg/dl Normal [facility] Urine leukocyte esterase det ection by dipstickOrdered By: Willie Dhillon on 01-14-2023 Leukocyte esterase Test strip Ql (U) 25 /ul Negative [facility] Urine pHOrdered By: Willie mo on 01-14-2023 pH (U) 8.0 [pH] 5.0 - 8.0 [facility] Urine phencyclidine (PCP) de tectionOrdered By: Lexus Villatoro on 01-14-2023 Phencyclidine Ql (U) Negative < 25 ng/mL [facility] Urine sediment bacteria coun t by microscopy (number/high power field)Ordered By: Willie Dhillon on 01-14-2023 Bacteria LM.HPF (Urine sed) [#/Area] RARE /hpf None Seen [facility] Urine specific gravity measu rementOrdered By: Willie Dhillon on 01-14-2023 Specific gravity (U) [Rel density] 1.015 1.002-1.030 [facility] Urobilinogen Auto test strip Ql (U)Ordered By: Willie Dhillon on 01-14-2023 Urobilinogen Ql (U) Normal mg/dl Normal [facility] Basophil percentageOrdered B y: Deann Guerrero on 01-13-2023 Basophil percentage 25-50 SEEN /hpf 0-5 [facility] Basophil percentage 235 mg/dL 74-106 [facility] Basophil percentage 137 mmol/L 136-145 [facility] Basophil percentage 3.2 mmol/L 3.5-5.1 [facility] Basophil percentage 107 mmol/L 98-107 [facility] Chloride [Moles/Vol] 107 mmol/L 98-107 [facility] Glucose [Mass/Vol] 235 mg/dL 74-106 [facility] Comment on above: Glucose result great er than or equal to 200 mg/dLsuggests DIABETES MELLITUS per A.D.A. criteria. Potassium [Moles/Vol] 3.2 mmol/L 3.5-5.1 [facility] Sodium [Moles/Vol] 137 mmol/L 136-145 [facility] Beta hCG serum qualOrdered B y: Deann Guerrero on 01-13-2023 Beta HCG ( test) Ql Negative [facility] Bilirubin Test strip Ql (U)O rdered By: Deann Guerrero on 01-13-2023 Bilirubin Ql (U) Negative Negative [facility] Ketones Test strip Ql (U)Ord ered By: Deann Guerrero on 01-13-2023 Ketones Ql (U) 15 mg/dl Negative [facility] Laboratory - Chemistry and C hemistry - challengeOrdered By: Deann Guerrero on 01-13-2023 CO2 [Moles/Vol] 23.0 mmol/L 21.0-32.0 [facility] Urea nitrogen/Creatinine [Mass ratio] 7.6 mg/mg 10- [facility] Mucus LM Ql (Urine sed)Order ed By: Deann Guerrero on 01-13-2023 Mucus Ql (Urine sed) 1+ /hpf [facility] Nitrite Test strip Ql (U)Ord ered By: Deann Guerrero on 01-13-2023 Nitrite Ql (U) Negative Negative [facility] No Panel InformationOrdered By: Deann Guerrero on 01-13-2023 Estimated Creatinine Clearance Calc 73.34 ml/min [facility] Estimated GFR (MDRD) Amer 79 mL/min >60 [facility] Comment on above: GFR Calc Estimated GFR (MDRD) Non-Af Amer 65 mL/min >60 [facility] Comment on above: Non- GFR Calc 65 mL/min >60 [facility] 79 mL/min >60 [facility] 73.34 ml/min [facility] 7.6 RATIO 04-30 [facility] 23.0 mmol/L 21.0-32.0 [facility] Protein Test strip Ql (U)Ord ered By: Deann Guerrero on 01-13-2023 Protein Ql (U) 30 mg/dl Negative [facility] Serum or plasma calcium hussein urement (mass/volume)Ordered By: Deann Guerrero on 01-13-2023 Calcium [Mass/Vol] 8.5 mg/dL 8.5-10.1 [facility] Serum or plasma creatinine m easurement (mass/volume)Ordered By: Deann Guerrero on 01-13-2023 Creatinine [Mass/Vol] 1.05 mg/dL 0.55-1.02 [facility] Comment on above: The validity of the calculated GFR & GFRAA in patients over 70 years has not been determined. Clinical correlation is essential. Serum or plasma urea nitroge n measurement (mass/volume)Ordered By: Deann Guerrero on 01-13-2023 Urea nitrogen [Mass/Vol] 8 mg/dL 7-18 [facility] Squamous epithelial cells de tection in urine sediment by light microscopyOrdered By: Deann Guerrero on 01-13-2023 Epithelial cells.squamous LM Ql (Urine sed) 5-10 SEEN /hpf 5-10 [facility] Thin prep Papanicolaou smear with manual screeningOrdered By: Deann Guerrero on 01-13-2023 Thin prep Papanicolaou smear with manual screening 7 5-15 [facility] Urine blood detectionOrdered By: Deann Guerrero on 01-13-2023 RBC Ql (U) 10 /ul Negative [facility] RBC Ql (U) 0-5 SEEN /hpf 0-5 [facility] Urine clarityOrdered By: Sulema Guerrero on 01-13-2023 Clarity (U) Sl. Cloudy Clear [facility] Urine color determinationOrd ered By: Deann Guerrero on 01-13-2023 Color (U) Yellow Yellow [facility] Urine glucose detectionOrder ed By: Deann Guerrero on 01-13-2023 Glucose Ql (U) 250 mg/dl Normal [facility] Urine leukocyte esterase det ection by dipstickOrdered By: Deann Guerrero on 01-13-2023 Leukocyte esterase Test strip Ql (U) 500 /ul Negative [facility] Urine pHOrdered By: Deann Guerrero on 01-13-2023 pH (U) 6.0 [pH] 5.0 - 8.0 [facility] Urine sediment bacteria coun t by microscopy (number/high power field)Ordered By: Deann Guerrero on 01-13-2023 Bacteria LM.HPF (Urine sed) [#/Area] 1 /[HPF] None Seen [facility] Urine specific gravity measu rementOrdered By: Deann Guerrero on 01-13-2023 Specific gravity (U) [Rel density] 1.020 1.002-1.030 [facility] Urobilinogen Auto test strip Ql (U)Ordered By: Deann Guerrero on 01-13-2023 Urobilinogen Ql (U) 1 mg/dl Normal [facility] Absolute lymphocyte countOrd ered By: Perico Norman on 01-12-2023 Lymphocytes Auto (Unsp spec) [#/Vol] 1.80 10*3/uL 0.83-4.51 [facility] Basophil percentageOrdered B y: Fabricio Guevara on 01-12-2023 Basophil percentage 208 mg/dL 74-106 [facility] Basophil percentage 137 mmol/L 136-145 [facility] Basophil percentage 3.0 mmol/L 3.5-5.1 [facility] Basophil percentage 105 mmol/L 98-107 [facility] Chloride [Moles/Vol] 105 mmol/L 98-107 [facility] Glucose [Mass/Vol] 208 mg/dL 74-106 [facility] Comment on above: Glucose result great er than or equal to 200 mg/dLsuggests DIABETES MELLITUS per A.D.A. criteria. Potassium [Moles/Vol] 3.0 mmol/L 3.5-5.1 [facility] Sodium [Moles/Vol] 137 mmol/L 136-145 [facility] Basophil percentageOrdered B y: Perico Norman on 01-12-2023 Basophil percentage 267 mg/dL 74-106 [facility] Basophil percentage 7.8 g/dL 6.4-8.2 [facility] Basophil percentage 0.40 mg/dL 0.20-1.00 [facility] Basophil percentage 134 mmol/L 136-145 [facility] Basophil percentage 3.4 mmol/L 3.5-5.1 [facility] Basophil percentage 101 mmol/L 98-107 [facility] Basophils (Bld) [#/Vol] 12.4 10*3/uL 4.4-11.0 [facility] Basophils (Bld) [#/Vol] 9.9 10*3/uL 2.0-7.7 [facility] Basophils/100 WBC (Bld) 0.3 % 0-1 [facility] Basophils/100 WBC (Bld) 79.6 % 47-70 [facility] Basophils/100 WBC (Bld) 0.0 % 0-5 [facility] Bilirubin [Mass/Vol] 0.40 mg/dL 0.20-1.00 [facility] Comment on above: For patients on eltr ombopag therapy, use of [employer]ension [employer] TBIL is not recommended. Chloride [Moles/Vol] 101 mmol/L 98-107 [facility] Eosinophils/100 WBC (Bld) 0.0 % 0-5 [facility] Glucose [Mass/Vol] 267 mg/dL 74-106 [facility] Comment on above: Glucose result great er than or equal to 200 mg/dLsuggests DIABETES MELLITUS per A.D.A. criteria. Neutrophils (Bld) [#/Vol] 9.9 10*3/uL 2.0-7.7 [facility] Neutrophils/100 WBC (Bld) 79.6 % 47-70 [facility] Potassium [Moles/Vol] 3.4 mmol/L 3.5-5.1 [facility] Protein [Mass/Vol] 7.8 g/dL 6.4-8.2 [facility] Sodium [Moles/Vol] 134 mmol/L 136-145 [facility] WBC (Bld) [#/Vol] 12.4 10*3/uL 4.4-11.0 [facility] Blood erythrocytes count (nu mber/volume)Ordered By: Perico Norman on 01-12-2023 RBC (Bld) [#/Vol] 4.62 10*6/uL 4.2-5.4 [facility] Blood hemoglobin measurement (mass/volume)Ordered By: Perico Norman on 01-12-2023 Hemoglobin (Bld) [Mass/Vol] 12.1 g/dL 12.0-15.0 [facility] Blood lymphocytes/100 leukoc ytesOrdered By: Perico Norman on 01-12-2023 Lymphocytes/100 WBC (Bld) 14.5 % 19-41 [facility] Blood monocytes/100 leukocyt esOrdered By: Perico Norman on 01-12-2023 Monocytes/100 WBC (Bld) 5.0 % 0-10 [facility] Blood platelet mean volumeOr dered By: Perico Norman on 01-12-2023 Platelet mean volume (Bld) [Entitic vol] 9.0 fL 6.2-12.0 [facility] Determination of erythrocyte mean corpuscular volume (MCV)Ordered By: Perico Norman on 01-12-2023 MCV (RBC) [Entitic vol] 81.0 fL 81-99 [facility] Direct bilirubinOrdered By: Perico Norman on 01-12-2023 Bilirubin.direct [Mass/Vol] 0.14 mg/dL 0.00-0.30 [facility] Hematocrit Auto (Bld) [Volum e fraction]Ordered By: Perico Norman on 01-12-2023 Hematocrit (Bld) [Volume fraction] 37.4 % 37-47 [facility] Laboratory - Chemistry and C hemistry - challengeOrdered By: Fabricio Guevara on 01-12-2023 CO2 [Moles/Vol] 26.0 mmol/L 21.0-32.0 [facility] Urea nitrogen/Creatinine [Mass ratio] 7.0 mg/mg 10-20 [facility] Laboratory - Chemistry and C hemistry - challengeOrdered By: Perico Norman on 01-12-2023 ALP [Catalytic activity/Vol] 68 U/L 45-117 [facility] ALT [Catalytic activity/Vol] 14 U/L 13-56 [facility] CO2 [Moles/Vol] 24.0 mmol/L 21.0-32.0 [facility] Globulin (S) [Mass/Vol] 4.5 g/dL 2.2-4.2 [facility] Lipase [Catalytic activity/Vol] 37 U/L 13-75 [facility] Comment on above: Please note:LIPASE r evised reference range effective 22. New Lipase methodology. Expected to produce lower values than the previous assay method. NEW Reference Range: 13 - 75 U/L Urea nitrogen/Creatinine [Mass ratio] 9.7 mg/mg 10-20 [facility] Laboratory - Hematology and Cell countsOrdered By: Perico Norman on 01-12-2023 Erythrocyte distribution width (RBC) [Entitic vol] 38.9 fL 35.1-43.9 [facility] Erythrocyte distribution width (RBC) [Ratio] 13.7 % 11.6-14.6 [facility] Immature granulocytes/100 WBC (Bld) 0.600 % 0.0-0.9 [facility] Comment on above: IG% - Immature Granu locytes (promyelocytes, myelocytes and metamyelocytes) > 1% indicates that a LEFT SHIFT is Present. MCH (RBC) [Entitic mass] 26.2 pg 27.0-32.0 [facility] Nucleated RBC/100 WBC (Bld) [Ratio] 0 % 0-5 [facility] MCHC Auto (RBC) [Mass/Vol]Or dered By: Perico Norman on 01-12-2023 MCHC (RBC) [Mass/Vol] 32.4 g/dL 32-36 [facility] No Panel InformationOrdered By: Fabricio Guevara on 01-12-2023 Estimated Creatinine Clearance Calc 77.01 ml/min [facility] Estimated GFR (MDRD) Amer 84 mL/min >60 [facility] Comment on above: GFR Calc Estimated GFR (MDRD) Non-Af Amer 69 mL/min >60 [facility] Comment on above: Non- GFR Calc 69 mL/min >60 [facility] 84 mL/min >60 [facility] 77.01 ml/min [facility] 7.0 RATIO 10-20 [facility] 26.0 mmol/L 21.0-32.0 [facility] No Panel InformationOrdered By: Perico Norman on 01-12-2023 Estimated Creatinine Clearance Calc 68.15 ml/min [facility] Estimated GFR (MDRD) Amer 72 mL/min >60 [facility] Comment on above: GFR Calc Estimated GFR (MDRD) Non-Af Amer 60 mL/min >60 [facility] Comment on above: Non- GFR Calc 26.2 pg 27.0-32.0 [facility] 13.7 % 11.6-14.6 [facility] 38.9 fl 35.1-43.9 [facility] 0.600 % 0.0-0.9 [facility] 0 % 0-5 [facility] 60 mL/min >60 [facility] 72 mL/min >60 [facility] 68.15 ml/min [facility] 9.7 RATIO 10-20 [facility] 4.5 g/dL 2.2-4.2 [facility] 37 U/L 13-75 [facility] 68 U/L 45-117 [facility] 14 U/L 13-56 [facility] 24.0 mmol/L 21.0-32.0 [facility] Platelets bldOrdered By: Bakari Norman on 01-12-2023 Platelets (Bld) [#/Vol] 352 10*3/uL 150-450 [facility] Serum or plasma albumin hussein urement (mass/volume)Ordered By: Perico Norman on 01-12-2023 Albumin [Mass/Vol] 3.3 g/dL 3.2-5.0 [facility] Serum or plasma calcium hussein urement (mass/volume)Ordered By: Fabricio Guevara on 01-12-2023 Calcium [Mass/Vol] 8.7 mg/dL 8.5-10.1 [facility] Serum or plasma calcium hussein urement (mass/volume)Ordered By: Perico Norman on 01-12-2023 Calcium [Mass/Vol] 9.0 mg/dL 8.5-10.1 [facility] Serum or plasma creatinine m easurement (mass/volume)Ordered By: Fabricio Guevara on 01-12-2023 Creatinine [Mass/Vol] 1.00 mg/dL 0.55-1.02 [facility] Comment on above: The validity of the calculated GFR & GFRAA in patients over 70 years has not been determined. Clinical correlation is essential. Serum or plasma creatinine m easurement (mass/volume)Ordered By: Perico Norman on 01-12-2023 Creatinine [Mass/Vol] 1.13 mg/dL 0.55-1.02 [facility] Comment on above: The validity of the calculated GFR & GFRAA in patients over 70 years has not been determined. Clinical correlation is essential. Serum or plasma urea nitroge n measurement (mass/volume)Ordered By: Fabricio Guevara on 01-12-2023 Urea nitrogen [Mass/Vol] 7 mg/dL 01-26 [facility] Serum or plasma urea nitroge n measurement (mass/volume)Ordered By: Perico Norman on 01-12-2023 Urea nitrogen [Mass/Vol] 11 mg/dL 01-26 [facility] Thin prep Papanicolaou smear with manual screeningOrdered By: Fabricio Guevara on 01-12-2023 Thin prep Papanicolaou smear with manual screening 6 -15 [facility] Thin prep Papanicolaou smear with manual screeningOrdered By: Perico Norman on 01-12-2023 Thin prep Papanicolaou smear with manual screening 12 U/L 15-37 [facility] Thin prep Papanicolaou smear with manual screening 9 -15 [facility] .Auto Diffon 01-10-2023 Basophil, Absolute 0.0 10 3/mcL Normal 0.0-0.2 [facility] ([place]) Comment on above: Performed By: #### A DIFF, GFR, MDW, CMP, ANEU, CBC, LIP #### [address] [address] Basophils/100 WBC (Bld) 0.2 % Normal 0.0-2.5 [facility] ([place]) Comment on above: Performed By: #### A DIFF, GFR, MDW, CMP, ANEU, CBC, LIP #### [address] [address] Eosinophil, Absolute 0.0 10 3/mcL Normal 0.0-0.4 [facility] ([place]) Comment on above: Performed By: #### A DIFF, GFR, MDW, CMP, ANEU, CBC, LIP #### [address] [address] Eosinophils/100 WBC (Bld) 0.1 % Normal 0.0-7.0 [facility] ([place]) Comment on above: Performed By: #### A DIFF, GFR, MDW, CMP, ANEU, CBC, LIP #### [address] [address] Lymphocyte, Absolute 2.7 10 3/mcL Normal 0.8-3.9 [facility] ([place]) Comment on above: Performed By: #### A DIFF, GFR, MDW, CMP, ANEU, CBC, LIP #### [address] [address] Lymphocytes/100 WBC (Bld) 17.3 % Normal 10.0-50.0 [facility] ([place]) Comment on above: Performed By: #### A DIFF, GFR, MDW, CMP, ANEU, CBC, LIP #### [address] [address] Monocyte, Absolute 0.9 10 3/mcL Normal 0.2-1.0 [facility] ([place]) Comment on above: Performed By: #### A DIFF, GFR, MDW, CMP, ANEU, CBC, LIP #### [address] [address] Monocytes/100 WBC (Bld) 5.7 % Normal 1.7-13.0 [facility] ([place]) Comment on above: Performed By: #### A DIFF, GFR, MDW, CMP, ANEU, CBC, LIP #### [address] [address] Neutrophils/100 WBC (Bld) 76.7 % Normal 37.0-80.0 [facility] ([place]) Comment on above: Performed By: #### A DIFF, GFR, MDW, CMP, ANEU, CBC, LIP #### [address] [address] .GFRon 01-10-2023 GFR 64 ml/min/1.73sqm Normal [facility] ([place]) Comment on above: Result Comment: GFR [...] GFR, MDW, CMP, ANEU, CBC, LIP #### [address] [address] GFR Non- 53 ml/min/1.73sqm Normal [facility] ([place]) Comment on above: Result Comment: GFR [...] GFR, MDW, CMP, ANEU, CBC, LIP #### [address] [address] .MDWon 01-10-2023 Monocyte Distribution Width 14.44 Normal 0.00-20.00 [facility] ([place]) Comment on above: Result Comment: For ED adult patients suspected of sepsis, MDW<=20.0 does not rule out sepsis or risk of sepsis Performed By: #### A DIFF, GFR, MDW, CMP, ANEU, CBC, LIP #### [address] [address] .NEUABSon 01-10-2023 Neutrophil, Absolute 11.9 10 3/mcL High 2.9-6.2 A [facility] ([place]) Comment on above: Performed By: #### A DIFF, GFR, MDW, CMP, ANEU, CBC, LIP #### [place] [address] .Urinalysis Microscopic (AO) on 01-10-2023 UA Bacteria Trace Abnormal [facility] ([place]) Comment on above: Performed By: #### A DIFF, GFR, MDW, CMP, ANEU, CBC, LIP #### [place] [address] UA RBC 0-5 Abnormal None Seen [facility] ([place] Comment on above: Performed By: #### A DIFF, GFR, MDW, CMP, ANEU, CBC, LIP #### [place] [address] UA Squam Epithelial LOADED Abnormal None Seen [facility] ([place]) Comment on above: Performed By: #### A DIFF, GFR, MDW, CMP, ANEU, CBC, LIP #### [place] [address] UA WBC 0-5 Abnormal None Seen [facility] ([place] Comment on above: Performed By: #### A DIFF, GFR, MDW, CMP, ANEU, CBC, LIP #### [place] [address] UA Yeast Trace Abnormal [facility] ([place] Comment on above: Performed By: #### A DIFF, GFR, MDW, CMP, ANEU, CBC, LIP #### [place] [address] CBCon 01-10-2023 Erythrocyte distribution width (RBC) [Ratio] 14.7 % High 11.5-14.5 [facility] ([place]) Comment on above: Performed By: #### A DIFF, GFR, MDW, CMP, ANEU, CBC, LIP #### [place] [address] Hematocrit (Bld) [Volume fraction] 38.7 % Normal 37.0-47.0 [facility] ([place]) Comment on above: Performed By: #### A DIFF, GFR, MDW, CMP, ANEU, CBC, LIP #### [address] [address] Hgb 12.9 G/dL Normal 12.0-16.0 [facility] ([place]) Comment on above: Performed By: #### A DIFF, GFR, MDW, CMP, ANEU, CBC, LIP #### [address] [address] MCH (RBC) [Entitic mass] 25.7 pg Low 27.0-31.2 [facility] ([place]) Comment on above: Performed By: #### A DIFF, GFR, MDW, CMP, ANEU, CBC, LIP #### [address] [address] MCHC 33.3 G/dL Normal 33.0-37.0 [facility] ([place]) Comment on above: Performed By: #### A DIFF, GFR, MDW, CMP, ANEU, CBC, LIP #### [address] [address] MCV (RBC) [Entitic vol] 77.4 fL Low 80.0-94.0 A [facility] ([place]) Comment on above: Performed By: #### A DIFF, GFR, MDW, CMP, ANEU, CBC, LIP #### [address] [address] Platelet 438 10 3/mcL High 130-400 [facility] ([place]) Comment on above: Performed By: #### A DIFF, GFR, MDW, CMP, ANEU, CBC, LIP #### [address] [address] Platelet mean volume (Bld) [Entitic vol] 7.2 fL Low 7.4-10.4 [facility] ([place] Comment on above: Performed By: #### A DIFF, GFR, MDW, CMP, ANEU, CBC, LIP #### [address] [address] RBC 5.01 10 6/mcL Normal 4.20-5.40 [facility] ([place]) Comment on above: Performed By: #### A DIFF, GFR, MDW, CMP, ANEU, CBC, LIP #### [address] [address] WBC 15.5 10 3/mcL High 4.6-10.8 [facility] ([place]) Comment on above: Performed By: #### A DIFF, GFR, MDW, CMP, ANEU, CBC, LIP #### [address] [address] CMPon 01-10-2023 Albumin Level 3.9 G/dL Normal 3.5-5.0 [facility] ([place] Comment on above: Performed By: #### A DIFF, GFR, MDW, CMP, ANEU, CBC, LIP #### [address] [address] Albumin/Globulin [Mass ratio] 0.9 {ratio} Low 1.1-2.5 [facility] ([place] Comment on above: Performed By: #### A DIFF, GFR, MDW, CMP, ANEU, CBC, LIP #### [address] [address] ALP [Catalytic activity/Vol] 84 U/L Normal 40-135 [facility] ([place]) Comment on above: Performed By: #### A DIFF, GFR, MDW, CMP, ANEU, CBC, LIP #### [address] [address] ALT [Catalytic activity/Vol] 17 U/L Normal 14-59 [facility] ([place]) Comment on above: Performed By: #### A DIFF, GFR, MDW, CMP, ANEU, CBC, LIP #### [address] [address] AST [Catalytic activity/Vol] 13 U/L Normal 10-40 [facility] ([place] Comment on above: Performed By: #### A DIFF, GFR, MDW, CMP, ANEU, CBC, LIP #### [address] [address] Bili Total 0.6 mg/dL Normal 0.2-1.0 [facility] ([place]) Comment on above: Result Comment: Use of this assay is not recommended for patients undergoing treatment with eltrombopag due to the potential for falsely elevated results. Performed By: #### A DIFF, GFR, MDW, CMP, ANEU, CBC, LIP #### [address] [address] BUN/Creatinine Ratio 11 ratio Normal 7-27 [facility] ([place]) Comment on above: Performed By: #### A DIFF, GFR, MDW, CMP, ANEU, CBC, LIP #### [address] [address] Calcium [Mass/Vol] 9.4 mg/dL Normal 8.4-10.2 [facility] ([place]) Comment on above: Performed By: #### A DIFF, GFR, MDW, CMP, ANEU, CBC, LIP #### [address] [address] Chloride [Moles/Vol] 99 mmol/L Normal 98-107 [facility] ([place]) Comment on above: Performed By: #### A DIFF, GFR, MDW, CMP, ANEU, CBC, LIP #### [address] [address] CO2 [Moles/Vol] 22 mmol/L Normal 22-29 [facility] ([place]) Comment on above: Performed By: #### A DIFF, GFR, MDW, CMP, ANEU, CBC, LIP #### [address] [address] Creatinine [Mass/Vol] 1.20 mg/dL High 0.55-1.02 [facility] ([place]) Comment on above: Performed By: #### A DIFF, GFR, MDW, CMP, ANEU, CBC, LIP #### [address] [address] Electrolyte Balance 17.0 mEq/L High 4.0-15.0 [facility] ([place]) Comment on above: Performed By: #### A DIFF, GFR, MDW, CMP, ANEU, CBC, LIP #### [address] [address] Globulin 4.4 G/dL Normal [facility] ([place]) Comment on above: Performed By: #### A DIFF, GFR, MDW, CMP, ANEU, CBC, LIP #### [address] [address] Glucose [Mass/Vol] 270 mg/dL High 70-105 [facility] ([place]) Comment on above: Performed By: #### A DIFF, GFR, MDW, CMP, ANEU, CBC, LIP #### [address] [address] Potassium [Moles/Vol] 3.4 mmol/L Low 3.5-5.1 [facility] ([place]) Comment on above: Performed By: #### A DIFF, GFR, MDW, CMP, ANEU, CBC, LIP #### [address] [address] Sodium [Moles/Vol] 138 mmol/L Normal 136-145 [facility] ([place]) Comment on above: Performed By: #### A DIFF, GFR, MDW, CMP, ANEU, CBC, LIP #### [address] [address] Total Protein 8.3 G/dL High 6.4-8.2 [facility] ([place]) Comment on above: Performed By: #### A DIFF, GFR, MDW, CMP, ANEU, CBC, LIP #### [address] [address] Urea nitrogen [Mass/Vol] 13 mg/dL Normal 7-18 [facility] ([place]) Comment on above: Performed By: #### A DIFF, GFR, MDW, CMP, ANEU, CBC, LIP #### [address] [address] [address] ABD/PELVIS W/ IV CONTRAST ONLYon 01-10-2023 [...] Date: 01/10/2023 4:59:31 PM Ordering Provider[facility] LABORATORYOrdered By: Plickers on 01-10-2023 Albumin BCP dye [Mass/Vol] 3.9 [...] 01-10-2023 Lipase Level 39 U/L Normal 16-77 [facility] ([place]) Comment on above: Performed By: #### A DIFF, GFR, MDW, CMP, ANEU, CBC, LIP #### [address] [address] PREGUon 01-10-2023 HCG ( test) Ql (U) Negative Normal [facility] ([place]) Comment on above: Performed By: #### A DIFF, GFR, MDW, CMP, ANEU, CBC, LIP #### [address] [address] test (u) int Not detected Invalid Interpretation Code [facility] ([place]) Comment on above: Performed By: #### A DIFF, GFR, MDW, CMP, ANEU, CBC, LIP #### [address] [address] UAon 01-10-2023 Color (U) Yellow Normal [facility] ([place]) Comment on above: Performed By: #### A DIFF, GFR, MDW, CMP, ANEU, CBC, LIP #### [address] [address] Glucose (U) [Mass/Vol] 500 mg/dL Abnormal Negative [facility] ([place]) Comment on above: Performed By: #### A DIFF, GFR, MDW, CMP, ANEU, CBC, LIP #### [address] [address] Ketones Ql (U) >=160 Abnormal Negative [facility] ([place]) Comment on above: Performed By: #### A DIFF, GFR, MDW, CMP, ANEU, CBC, LIP #### [address] [address] UA Appear Slightly Cloudy Abnormal Clear [facility] ([place]) Comment on above: Performed By: #### A DIFF, GFR, MDW, CMP, ANEU, CBC, LIP #### [address] [address] UA Blood Negative Normal Negative [facility] ([place]) Comment on above: Performed By: #### A DIFF, GFR, MDW, CMP, ANEU, CBC, LIP #### [address] [address] UA Leuk Est Negative Normal Negative [facility] ([place]) Comment on above: Performed By: #### A DIFF, GFR, MDW, CMP, ANEU, CBC, LIP #### [address] [address] UA Nitrite Negative Normal Negative [facility] ([place]) Comment on above: Performed By: #### A DIFF, GFR, MDW, CMP, ANEU, CBC, LIP #### [address] [address] UA pH 8.5 Abnormal 5.0 - 8.0 [facility] ([place]) Comment on above: Performed By: #### A DIFF, GFR, MDW, CMP, ANEU, CBC, LIP #### [address] [address] UA Protein 100 mg/dL Abnormal Negative [facility] ([place]) Comment on above: Performed By: #### A DIFF, GFR, MDW, CMP, ANEU, CBC, LIP #### [address] [address] UA Spec Grav 1.020 Normal 1.015-1.025 [facility] ([place]) Comment on above: Performed By: #### A DIFF, GFR, MDW, CMP, ANEU, CBC, LIP #### [address] [address] UA Specimen Type Clean Catch Normal [facility] ([place]) Comment on above: Performed By: #### A DIFF, GFR, MDW, CMP, ANEU, CBC, LIP #### [id number] [place], [place] [address] UA Urobilinogen 0.2 E.U./dL Normal 0.2-1.0 [facility] ([place]) Comment on above: Performed By: #### A DIFF, GFR, MDW, CMP, ANEU, CBC, LIP #### [id number] [place], [place] [address] Urobilinogen (U) [Mass/Vol] Negative Normal Negative [facility] ([place]) Comment on above: Performed By: #### A DIFF, GFR, MDW, CMP, ANEU, CBC, LIP #### [id number] [place], [place] [address] Absolute lymphocyte countOrd ered By: Carlos Calvo on 01-09-2023 Lymphocytes Auto (Unsp spec) [#/Vol] 2.47 10*3/uL 0.83-4.51 [facility] Basophil percentageOrdered B y: Carlos Calvo on 01-09-2023 Basophil percentage 0 SEEN /hpf 0-5 [facility] Basophil percentage 247 mg/dL 74-106 [facility] Basophil percentage 8.7 g/dL 6.4-8.2 [facility] Basophil percentage 0.60 mg/dL 0.20-1.00 [facility] Basophil percentage 134 mmol/L 136-145 [facility] Basophil percentage 4.0 mmol/L 3.5-5.1 [facility] Basophil percentage 101 mmol/L 98-107 [facility] Basophils (Bld) [#/Vol] 10.7 10*3/uL 4.4-11.0 [facility] Basophils (Bld) [#/Vol] 7.6 10*3/uL 2.0-7.7 [facility] Basophils/100 WBC (Bld) 0.5 % 0-1 [facility] Basophils/100 WBC (Bld) 70.5 % 47-70 [facility] Basophils/100 WBC (Bld) 0.2 % 0-5 [facility] Bilirubin [Mass/Vol] 0.60 mg/dL 0.20-1.00 [facility] Comment on above: For patients on eltr ombopag therapy, use of Dimension Harvest TBIL is not recommended. Chloride [Moles/Vol] 101 mmol/L 98-107 [facility] Eosinophils/100 WBC (Bld) 0.2 % 0-5 [facility] Glucose [Mass/Vol] 247 mg/dL 74-106 [facility] [place] [facility] Comment on above: Glucose result great er than or equal to 200 mg/dLsuggests DIABETES MELLITUS per A.D.A. criteria. Neutrophils (Bld) [#/Vol] 7.6 10*3/uL 2.0-7.7 [facility] Neutrophils/100 WBC (Bld) 70.5 % 47-70 [facility] Potassium [Moles/Vol] 4.0 mmol/L 3.5-5.1 [facility] Comment on above: Slight Hemolysis, Re sult may be falsely increased. Protein [Mass/Vol] 8.7 g/dL 6.4-8.2 [facility] [place] [facility] Sodium [Moles/Vol] 134 mmol/L 136-145 [facility] [place] [facility] WBC (Bld) [#/Vol] 10.7 10*3/uL 4.4-11.0 [facility] Bilirubin Test strip Ql (U)O rdered By: Carlos Calvo on 01-09-2023 Bilirubin Ql (U) Negative Negative [facility] Blood erythrocytes count (nu mber/volume)Ordered By: Carlos Calvo on 01-09-2023 RBC (Bld) [#/Vol] 5.01 10*6/uL 4.2-5.4 [facility] Blood hemoglobin measurement (mass/volume)Ordered By: Carlos Calvo on 01-09-2023 Hemoglobin (Bld) [Mass/Vol] 13.0 g/dL 12.0-15.0 [facility] Blood lymphocytes/100 leukoc ytesOrdered By: Carlos Calvo on 01-09-2023 Lymphocytes/100 WBC (Bld) 23.0 % 19-41 [facility] Blood monocytes/100 leukocyt esOrdered By: Carlos Calvo on 01-09-2023 Monocytes/100 WBC (Bld) 4.9 % 0-10 [facility] Blood platelet mean volumeOr dered By: Carlos Calvo on 01-09-2023 Platelet mean volume (Bld) [Entitic vol] 9.5 fL 6.2-12.0 [facility] Determination of erythrocyte mean corpuscular volume (MCV)Ordered By: Carlos Calvo on 01-09-2023 MCV (RBC) [Entitic vol] 79.8 fL 81-99 [facility] Glucose Glucometer (BldC) [M ass/Vol]Ordered By: Deann Guerrero on 01-09-2023 Glucose [Mass/Vol] 254 mg/dL 74-106 [facility] [place] [facility] Comment on above: MANAGEMENT OF PATIEN T CARE PER NURSING PROTOCOL Hematocrit Auto (Bld) [Volum e fraction]Ordered By: Carlos Calvo on 01-09-2023 Hematocrit (Bld) [Volume fraction] 40.0 % 37-47 [facility] Ketones Test strip Ql (U)Ord ered By: Carlos Calvo on 01-09-2023 Ketones Ql (U) 50 mg/dl Negative [facility] Laboratory - Chemistry and C hemistry - challengeOrdered By: Carlos Calvo on 01-09-2023 HCG ( test) Ql (U) Negative [facility] Comment on above: Very dilute urine sp ecimens, as indicated by a low specificgravity, may not contain signs sales representative levels of hCG. If is still suspected, a first morning urinespecimen should be collected 48 hours later and tested. ALP [Catalytic activity/Vol] 85 U/L 45-117 [facility] ALT [Catalytic activity/Vol] 20 U/L 13-56 [facility] CO2 [Moles/Vol] 21.0 mmol/L 21.0-32.0 [facility] Globulin (S) [Mass/Vol] 5.2 g/dL 2.2-4.2 [facility] Lipase [Catalytic activity/Vol] 38 U/L 13-75 [facility] Comment on above: Please note:LIPASE r evised reference range effective 22. New Lipase methodology. Expected to produce lower values than the previous assay method. NEW Reference Range: 13 - 75 U/L Urea nitrogen/Creatinine [Mass ratio] 7.9 mg/mg 10-20 [facility] Laboratory - Hematology and Cell countsOrdered By: Carlos Calvo on 01-09-2023 Erythrocyte distribution width (RBC) [Entitic vol] 38.3 fL 35.1-43.9 [facility] Erythrocyte distribution width (RBC) [Ratio] 13.4 % 11.6-14.6 [facility] Immature granulocytes/100 WBC (Bld) 0.900 % 0.0-0.9 [facility] Comment on above: IG% - Immature Granu locytes (promyelocytes, myelocytes and metamyelocytes) > 1% indicates that a LEFT SHIFT is Present. MCH (RBC) [Entitic mass] 25.9 pg 27.0-32.0 [facility] Nucleated RBC/100 WBC (Bld) [Ratio] 0 % 0-5 [facility] MCHC Auto (RBC) [Mass/Vol]Or dered By: Carlos Calvo on 01-09-2023 MCHC (RBC) [Mass/Vol] 32.5 g/dL 32-36 [facility] Mucus LM Ql (Urine sed)Order ed By: Carlos Calvo on 01-09-2023 Mucus Ql (Urine sed) 0 SEEN /hpf [facility] Nitrite Test strip Ql (U)Ord ered By: Carlos Calvo on 01-09-2023 Nitrite Ql (U) Negative Negative [facility] No Panel InformationOrdered By: Carlos Calvo on 01-09-2023 Negative [facility] Estimated Creatinine Clearance Calc 67.55 ml/min [facility] Estimated GFR (MDRD) Amer 72 mL/min >60 [facility] Comment on above: GFR Calc Estimated GFR (MDRD) Non-Af Amer 59 mL/min >60 [facility] Comment on above: Non- GFR Calc 25.9 pg 27.0-32.0 [facility] 13.4 % 11.6-14.6 [facility] 38.3 fl 35.1-43.9 [facility] 0.900 % 0.0-0.9 [facility] 0 % 0-5 [facility] 59 mL/min >60 [facility] 72 mL/min >60 [facility] 67.55 ml/min [facility] 7.9 RATIO 10-20 [facility] 5.2 g/dL 2.2-4.2 [facility] 38 U/L 13-75 [facility] 85 U/L 45-117 [facility] 20 U/L 13-56 [facility] 21.0 mmol/L 21.0-32.0 [facility] Platelets bldOrdered By: Analia Calvo on 01-09-2023 Platelets (Bld) [#/Vol] 397 10*3/uL 150-450 [facility] Protein Test strip Ql (U)Ord ered By: Carlos Calvo on 01-09-2023 Protein Ql (U) 15 mg/dl Negative [facility] Serum or plasma albumin hussein urement (mass/volume)Ordered By: Carlos Calvo on 01-09-2023 Albumin [Mass/Vol] 3.5 g/dL 3.2-5.0 [facility] [place] [facility] Serum or plasma albumin/glob ulin mass ratioOrdered By: Carlos Calvo on 01-09-2023 Albumin/Globulin [Mass ratio] 0.7 {ratio} 0.9-2.4 [facility] Serum or plasma calcium hussein urement (mass/volume)Ordered By: Carlos Calvo on 01-09-2023 Calcium [Mass/Vol] 9.5 mg/dL 8.5-10.1 [facility] [place] [facility] Serum or plasma creatinine m easurement (mass/volume)Ordered By: Carlos Calvo on 01-09-2023 Creatinine [Mass/Vol] 1.14 mg/dL 0.55-1.02 [facility] Comment on above: The validity of the calculated GFR & GFRAA in patients over 70 years has not been determined. Clinical correlation is essential. Serum or plasma urea nitroge n measurement (mass/volume)Ordered By: Carlos Calvo on 01-09-2023 Urea nitrogen [Mass/Vol] 9 mg/dL 7-18 [facility] Squamous epithelial cells de tection in urine sediment by light microscopyOrdered By: Carlos Calvo on 01-09-2023 Epithelial cells.squamous LM Ql (Urine sed) 5-10 SEEN /hpf 5-10 [facility] Thin prep Papanicolaou smear with manual screeningOrdered By: Carlos Calvo on 01-09-2023 Thin prep Papanicolaou smear with manual screening 19 U/L 15-37 [facility] Comment on above: Slight Hemolysis, Re sult may be falsely increased. Thin prep Papanicolaou smear with manual screening 12 5-15 [facility] Urine blood detectionOrdered By: Carlos Calvo on 01-09-2023 RBC Ql (U) 10 /ul Negative [facility] RBC Ql (U) 0 SEEN /hpf 0-5 [facility] Urine clarityOrdered By: Analia Calvo on 01-09-2023 Clarity (U) Clear Clear [facility] Urine color determinationOrd ered By: Carlos Calvo on 01-09-2023 Color (U) Yellow Yellow [facility] Urine glucose detectionOrder ed By: Carlos Calvo on 01-09-2023 Glucose Ql (U) 1000 mg/dl Normal [facility] Urine leukocyte esterase det ection by dipstickOrdered By: Carlos Calvo on 01-09-2023 Leukocyte esterase Test strip Ql (U) 25 /ul Negative [facility] Urine pHOrdered By: Carlos mclain on 01-09-2023 pH (U) 8.0 [pH] 5.0 - 8.0 [facility] Urine sediment bacteria coun t by microscopy (number/high power field)Ordered By: Carlos Calvo on 01-09-2023 Bacteria LM.HPF (Urine sed) [#/Area] 0 /[HPF] None Seen [facility] Urine specific gravity measu rementOrdered By: Carlos Calvo on 01-09-2023 Specific gravity (U) [Rel density] 1.015 1.002-1.030 [facility] Urobilinogen Auto test strip Ql (U)Ordered By: Carlos Calvo on 01-09-2023 Urobilinogen Ql (U) Normal mg/dl Normal [facility] Absolute lymphocyte countOrd ered By: Poli Barfield on 01-07-2023 Lymphocytes Auto (Unsp spec) [#/Vol] 3.48 10*3/uL 0.83-4.51 [facility] Basophil percentageOrdered B y: Poli Barfield on 01-07-2023 Basophil percentage 202 mg/dL 74-106 [facility] Basophil percentage 135 mmol/L 136-145 [facility] Basophil percentage 3.8 mmol/L 3.5-5.1 [facility] Basophil percentage 102 mmol/L 98-107 [facility] Basophils (Bld) [#/Vol] 9.0 10*3/uL 4.4-11.0 [facility] Basophils (Bld) [#/Vol] 4.8 10*3/uL 2.0-7.7 [facility] Basophils/100 WBC (Bld) 0.4 % 0-1 [facility] Basophils/100 WBC (Bld) 53.2 % 47-70 [facility] Basophils/100 WBC (Bld) 1.0 % 0-5 [facility] Chloride [Moles/Vol] 102 mmol/L 98-107 [facility] Eosinophils/100 WBC (Bld) 1.0 % 0-5 [facility] Glucose [Mass/Vol] 202 mg/dL 74-106 [facility] [place] [facility] Comment on above: Glucose result great er than or equal to 200 mg/dLsuggests DIABETES MELLITUS per A.D.A. criteria. Neutrophils (Bld) [#/Vol] 4.8 10*3/uL 2.0-7.7 [facility] Neutrophils/100 WBC (Bld) 53.2 % 47-70 [facility] Potassium [Moles/Vol] 3.8 mmol/L 3.5-5.1 [facility] Sodium [Moles/Vol] 135 mmol/L 136-145 [facility] [place] [facility] WBC (Bld) [#/Vol] 9.0 10*3/uL 4.4-11.0 [facility] [place] [facility] Blood erythrocytes count (nu mber/volume)Ordered By: Poli Barfield on 01-07-2023 RBC (Bld) [#/Vol] 4.92 10*6/uL 4.2-5.4 [facility] Blood hemoglobin measurement (mass/volume)Ordered By: Poli Barfield on 01-07-2023 Hemoglobin (Bld) [Mass/Vol] 12.7 g/dL 12.0-15.0 [facility] Blood lymphocytes/100 leukoc ytesOrdered By: Poli Barfield on 01-07-2023 Lymphocytes/100 WBC (Bld) 38.5 % 19-41 [facility] Blood monocytes/100 leukocyt esOrdered By: Poli Barfield on 01-07-2023 Monocytes/100 WBC (Bld) 5.9 % 0-10 [facility] Blood platelet mean volumeOr dered By: Poli Barfield on 01-07-2023 Platelet mean volume (Bld) [Entitic vol] 9.1 fL 6.2-12.0 [facility] Determination of erythrocyte mean corpuscular volume (MCV)Ordered By: Poli Barfield on 01-07-2023 MCV (RBC) [Entitic vol] 79.7 fL 81-99 [facility] Glucose Glucometer (BldC) [M ass/Vol]Ordered By: Poli Barfield on 01-07-2023 Glucose [Mass/Vol] 206 mg/dL 74-106 [facility] [place] [facility] Comment on above: MANAGEMENT OF PATIEN T CARE PER NURSING PROTOCOL Hematocrit Auto (Bld) [Volum e fraction]Ordered By: Poli Barfield on 01-07-2023 Hematocrit (Bld) [Volume fraction] 39.2 % 37-47 [facility] Laboratory - Chemistry and C hemistry - challengeOrdered By: Poli Barfield on 01-07-2023 HCG ( test) Ql (U) Negative [facility] Comment on above: Very dilute urine sp ecimens, as indicated by a low specificgravity, may not contain signs sales representative levels of hCG. If is still suspected, a first morning urinespecimen should be collected 48 hours later and tested. CO2 [Moles/Vol] 24.0 mmol/L 21.0-32.0 [facility] Urea nitrogen/Creatinine [Mass ratio] 8.9 mg/mg 10-20 [facility] Laboratory - Drug toxicology Ordered By: Poli Barfield on 01-07-2023 Amphetamines Ql (U) Negative <1000 ng/mL [facility] Benzodiazepines Ql (U) Negative < 200 ng/mL [facility] Cannabinoids Screen Ql (U) Positive < 50 ng/mL [facility] Cocaine Ql (U) Negative < 300 ng/mL [facility] Opiates Ql (U) Negative < 300 ng/mL [facility] Laboratory - Hematology and Cell countsOrdered By: Poli Barfield on 01-07-2023 Erythrocyte distribution width (RBC) [Entitic vol] 38.9 fL 35.1-43.9 [facility] Erythrocyte distribution width (RBC) [Ratio] 13.5 % 11.6-14.6 [facility] Immature granulocytes/100 WBC (Bld) 1.000 % 0.0-0.9 [facility] Comment on above: IG% - Immature Granu locytes (promyelocytes, myelocytes and metamyelocytes) > 1% indicates that a LEFT SHIFT is Present. MCH (RBC) [Entitic mass] 25.8 pg 27.0-32.0 [facility] Nucleated RBC/100 WBC (Bld) [Ratio] 0 % 0-5 [facility] MCHC Auto (RBC) [Mass/Vol]Or dered By: Poli Barfield on 01-07-2023 MCHC (RBC) [Mass/Vol] 32.4 g/dL 32-36 [facility] No Panel InformationOrdered By: Poli Barfield on 01-07-2023 MDMA (Ecstasy) Screen Positive < 500 ng/mL [facility] Urine Barbiturates Screen Negative < 200 ng/mL [facility] Urine Drug Screen Comment [facility] Comment on above: CONFIRMATORY TESTING FOR [...] Methadone Screen Negative < 300 ng/mL [facility] Negative < 300 ng/mL [facility] Positive < 50 ng/mL [facility] Estimated Creatinine Clearance Calc 68.76 ml/min [facility] Estimated GFR (MDRD) Amer 73 mL/min >60 [facility] Comment on above: GFR Calc Estimated GFR (MDRD) Non-Af Amer 60 mL/min >60 [facility] Comment on above: Non- GFR Calc 25.8 pg 27.0-32.0 [facility] 13.5 % 11.6-14.6 [facility] 38.9 fl 35.1-43.9 [facility] 1.000 % 0.0-0.9 [facility] 0 % 0-5 [facility] 60 mL/min >60 [facility] 73 mL/min >60 [facility] 68.76 ml/min [facility] 8.9 RATIO 10-20 [facility] 24.0 mmol/L 21.0-32.0 [facility] Platelets bldOrdered By: Devon Barfield on 01-07-2023 Platelets (Bld) [#/Vol] 380 10*3/uL 150-450 [facility] Serum or plasma calcium hussein urement (mass/volume)Ordered By: Poli Barfield on 01-07-2023 Calcium [Mass/Vol] 9.0 mg/dL 8.5-10.1 [facility] [place] [facility] Serum or plasma creatinine m easurement (mass/volume)Ordered By: Poli Barfield on 01-07-2023 Creatinine [Mass/Vol] 1.12 mg/dL 0.55-1.02 [facility] Comment on above: The validity of the calculated GFR & GFRAA in patients over 70 years has not been determined. Clinical correlation is essential. Serum or plasma urea nitroge n measurement (mass/volume)Ordered By: Poli Barfield on 01-07-2023 Urea nitrogen [Mass/Vol] 10 mg/dL 7-18 [facility] Thin prep Papanicolaou smear with manual screeningOrdered By: Poli Barfield on 01-07-2023 Thin prep Papanicolaou smear with manual screening 9 5-15 [facility] Urine phencyclidine (PCP) de tectionOrdered By: Poli Barfield on 01-07-2023 Phencyclidine Ql (U) Negative < 25 ng/mL [facility] Basophil percentageOrdered B y: Amy Solorzano on 11-25-2022 Basophil percentage 493 mg/dL 74-106 [facility] Basophil percentage 8.0 g/dL 6.4-8.2 [facility] Basophil percentage 0.20 mg/dL 0.20-1.00 [facility] Basophil percentage 130 mmol/L 136-145 [facility] Basophil percentage 4.3 mmol/L 3.5-5.1 [facility] Basophil percentage 99 mmol/L 98-107 [facility] Basophils (Bld) [#/Vol] 8.2 10*3/uL 4.4-11.0 [facility] Bilirubin [Mass/Vol] 0.20 mg/dL 0.20-1.00 [facility] Comment on above: For patients on eltr ombopag therapy, use of Dimension Harvest TBIL is not recommended. Chloride [Moles/Vol] 99 mmol/L 98-107 [facility] Glucose [Mass/Vol] 493 mg/dL 74-106 [facility] [place] [facility] Comment on above: Critical Result(s) C alled at: 11:44:33 11/25/2022 by: NICOLE PATE TO GHISLAINE MCQUEEN. Results read back by same.Glucose result greater than or equal to 200 mg/dLsuggests DIABETES MELLITUS per A.D.A. criteria. Potassium [Moles/Vol] 4.3 mmol/L 3.5-5.1 [facility] Protein [Mass/Vol] 8.0 g/dL 6.4-8.2 [facility] [place] [facility] Sodium [Moles/Vol] 130 mmol/L 136-145 [facility] [place] [facility] WBC (Bld) [#/Vol] 8.2 10*3/uL 4.4-11.0 [facility] [place] [facility] Blood erythrocytes count (nu mber/volume)Ordered By: Amy Solorzano on 11-25-2022 RBC (Bld) [#/Vol] 4.74 10*6/uL 4.2-5.4 [facility] Blood hemoglobin measurement (mass/volume)Ordered By: Amy Solorzano on 11-25-2022 Hemoglobin (Bld) [Mass/Vol] 12.5 g/dL 12.0-15.0 [facility] Blood platelet mean volumeOr dered By: Amy Solorzano on 11-25-2022 Platelet mean volume (Bld) [Entitic vol] 9.5 fL 6.2-12.0 [facility] Determination of erythrocyte mean corpuscular volume (MCV)Ordered By: Amy Solorzano on 11-25-2022 MCV (RBC) [Entitic vol] 80.2 fL 81-99 [facility] Hematocrit Auto (Bld) [Volum e fraction]Ordered By: Amy Solorzano on 11-25-2022 Hematocrit (Bld) [Volume fraction] 38.0 % 37-47 [facility] Laboratory - Chemistry and C hemistry - challengeOrdered By: Amy Solorzano on 11-25-2022 ALP [Catalytic activity/Vol] 110 U/L 45-117 [facility] ALT [Catalytic activity/Vol] 26 U/L 13-56 [facility] CO2 [Moles/Vol] 19.0 mmol/L 21.0-32.0 [facility] Globulin (S) [Mass/Vol] 5.0 g/dL 2.2-4.2 [facility] Urea nitrogen/Creatinine [Mass ratio] 11.3 mg/mg 10-20 [facility] Laboratory - Hematology and Cell countsOrdered By: Amy Solorzano on 11-25-2022 Erythrocyte distribution width (RBC) [Entitic vol] 40.1 fL 35.1-43.9 [facility] Erythrocyte distribution width (RBC) [Ratio] 13.9 % 11.6-14.6 [facility] MCH (RBC) [Entitic mass] 26.4 pg 27.0-32.0 [facility] MCHC Auto (RBC) [Mass/Vol]Or dered By: Amy Solorzano on 11-25-2022 MCHC (RBC) [Mass/Vol] 32.9 g/dL 32-36 [facility] No Panel InformationOrdered By: Amy Solorzano on 11-25-2022 Estimated GFR (MDRD) Amer 71 mL/min >60 [facility] Comment on above: GFR Calc Estimated GFR (MDRD) Non-Af Amer 59 mL/min >60 [facility] Comment on above: Non- GFR Calc 26.4 pg 27.0-32.0 [facility] 13.9 % 11.6-14.6 [facility] 40.1 fl 35.1-43.9 [facility] 59 mL/min >60 [facility] 71 mL/min >60 [facility] 11.3 RATIO 10-20 [facility] 5.0 g/dL 2.2-4.2 [facility] 110 U/L 45-117 [facility] 26 U/L 13-56 [facility] 19.0 mmol/L 21.0-32.0 [facility] Platelets bldOrdered By: Glendy Solorzano on 11-25-2022 Platelets (Bld) [#/Vol] 375 10*3/uL 150-450 [facility] Serum or plasma albumin hussein urement (mass/volume)Ordered By: Amy Solorzano on 11-25-2022 Albumin [Mass/Vol] 3.0 g/dL 3.2-5.0 [facility] [place] [facility] Serum or plasma albumin/glob ulin mass ratioOrdered By: Amy Solorzano on 11-25-2022 Albumin/Globulin [Mass ratio] 0.6 {ratio} 0.9-2.4 [facility] Serum or plasma calcium hussein urement (mass/volume)Ordered By: Amy Solorzano on 11-25-2022 Calcium [Mass/Vol] 8.2 mg/dL 8.5-10.1 [facility] Serum or plasma creatinine m easurement (mass/volume)Ordered By: Amy Solorzano on 11-25-2022 Creatinine [Mass/Vol] 1.15 mg/dL 0.55-1.02 [facility] Comment on above: The validity of the calculated GFR & GFRAA in patients over 70 years has not been determined. Clinical correlation is essential. Serum or plasma urea nitroge n measurement (mass/volume)Ordered By: Amy Solorzano on 11-25-2022 Urea nitrogen [Mass/Vol] 13 mg/dL 7-18 [facility] Thin prep Papanicolaou smear with manual screeningOrdered By: Amy Solorzano on 11-25-2022 Thin prep Papanicolaou smear with manual screening 15 U/L 15-37 [facility] Thin prep Papanicolaou smear with manual screening 12 5-15 [facility] Thin prep Papanicolaou smear with manual screening 6.1 mg/L NO RANGE EST. [facility] Whole blood hemoglobin A1c/t otal hemoglobin ratio (mass fraction)Ordered By: Amy Solorzano on 11-25-2022 HbA1c (Bld) [Mass fraction] 12.1 % 3.8-5.6 [facility] Comment on above: Normal < 5.7 % Predi abetic 5.7 - 6.4 % Diabetic >or= 6.5 % Please note range changes. Absolute lymphocyte countOrd ered By: Dr. Villatoro on 08-15-2022 Lymphocytes Auto (Unsp spec) [#/Vol] 2.49 10*3/uL 0.83-4.51 [facility] Basophil percentageOrdered B y: Dr. Villatoro on 08-15-2022 Basophils/100 WBC (Bld) 0.4 % 0-1 [facility] Chloride [Moles/Vol] 104 mmol/L 98-107 [facility] Eosinophils/100 WBC (Bld) 0.9 % 0-5 [facility] Glucose [Mass/Vol] 215 mg/dL 74-106 [facility] Comment on above: Glucose result great er than or equal to 200 mg/dLsuggests DIABETES MELLITUS per A.D.A. criteria. Neutrophils (Bld) [#/Vol] 5.7 10*3/uL 2.0-7.7 [facility] Neutrophils/100 WBC (Bld) 62.3 % 47-70 [facility] Potassium [Moles/Vol] 4.0 mmol/L 3.5-5.1 [facility] Sodium [Moles/Vol] 137 mmol/L 136-145 [facility] WBC (Bld) [#/Vol] 9.2 10*3/uL 4.4-11.0 [facility] Blood erythrocytes count (nu mber/volume)Ordered By: Dr. Villatoro on 08-15-2022 RBC (Bld) [#/Vol] 3.60 10*6/uL 4.2-5.4 [facility] Blood hemoglobin measurement (mass/volume)Ordered By: Dr. Villatoro on 08-15-2022 Hemoglobin (Bld) [Mass/Vol] 9.2 g/dL 12.0-15.0 [facility] Blood lymphocytes/100 leukoc ytesOrdered By: Dr. Villatoro on 08-15-2022 Lymphocytes/100 WBC (Bld) 27.1 % 19-41 [facility] Blood monocytes/100 leukocyt esOrdered By: Dr. Villatoro on 08-15-2022 Monocytes/100 WBC (Bld) 8.2 % 0-10 [facility] Blood platelet mean volumeOr dered By: Dr. Villatoro on 08-15-2022 Platelet mean volume (Bld) [Entitic vol] 9.0 fL 6.2-12.0 [facility] Determination of erythrocyte mean corpuscular volume (MCV)Ordered By: Dr. Villatoro on 08-15-2022 MCV (RBC) [Entitic vol] 81.4 fL 81-99 [facility] Glucose Glucometer (BldC) [M ass/Vol]Ordered By: Dr. Villatoro on 08-15-2022 Glucose [Mass/Vol] 290 mg/dL 74-106 [facility] Comment on above: MANAGEMENT OF PATIEN T CARE PER NURSING PROTOCOL Hematocrit Auto (Bld) [Volum e fraction]Ordered By: Dr. Villatoro on 08-15-2022 Hematocrit (Bld) [Volume fraction] 29.3 % 37-47 [facility] Laboratory - Chemistry and C hemistry - challengeOrdered By: Dr. Villatoro on 08-15-2022 CO2 [Moles/Vol] 24.0 mmol/L 21.0-32.0 [facility] Urea nitrogen/Creatinine [Mass ratio] 7.1 mg/mg 10-20 [facility] Laboratory - Hematology and Cell countsOrdered By: Dr. Villatoro on 08-15-2022 Erythrocyte distribution width (RBC) [Entitic vol] 38.4 fL 35.1-43.9 [facility] Erythrocyte distribution width (RBC) [Ratio] 12.9 % 11.6-14.6 [facility] Immature granulocytes/100 WBC (Bld) 1.100 % 0.0-0.9 [facility] Comment on above: IG% - Immature Granu locytes (promyelocytes, myelocytes and metamyelocytes) > 1% indicates that a LEFT SHIFT is Present. MCH (RBC) [Entitic mass] 25.6 pg 27.0-32.0 [facility] Nucleated RBC/100 WBC (Bld) [Ratio] 0 % 0-5 [facility] MCHC Auto (RBC) [Mass/Vol]Or dered By: Dr. Villatoro on 08-15-2022 MCHC (RBC) [Mass/Vol] 31.4 g/dL 32-36 [facility] No Panel InformationOrdered By: Dr. Villatoro on 08-15-2022 Estimated Creatinine Clearance Calc 110.01 ml/min [facility] Estimated GFR (MDRD) Amer 125 mL/min >60 [facility] Comment on above: GFR Calc Estimated GFR (MDRD) Non-Af Amer 104 mL/min >60 [facility] Comment on above: Non- GFR Calc Platelets bldOrdered By: Dr. Villatoro on 08-15-2022 Platelets (Bld) [#/Vol] 458 10*3/uL 150-450 [facility] Serum or plasma C reactive p rotein measurement (mass/volume)Ordered By: Dr. Villatoro on 08-15-2022 CRP [Mass/Vol] 119.00 mg/L 0.0-3.0 [facility] Comment on above: C-Reactive Protein ( CRP) provides useful information for thediagnosis, therapy and monitoring of inflammatory processesand associated diseases. For the evaluation of Relative Riskfor Cardiovascular Disease, a High Sensitivity CRP (HSCRP)should be ordered. Serum or plasma calcium hussein urement (mass/volume)Ordered By: Dr. Villatoro on 08-15-2022 Calcium [Mass/Vol] 8.4 mg/dL 8.5-10.1 [facility] Serum or plasma creatinine m easurement (mass/volume)Ordered By: Dr. Villatoro on 08-15-2022 Creatinine [Mass/Vol] 0.70 mg/dL 0.55-1.02 [facility] Comment on above: The validity of the calculated GFR & GFRAA in patients over 70 years has not been determined. Clinical correlation is essential. Serum or plasma urea nitroge n measurement (mass/volume)Ordered By: Dr. Villatoro on 08-15-2022 Urea nitrogen [Mass/Vol] 5 mg/dL 7-18 [facility] Thin prep Papanicolaou smear with manual screeningOrdered By: Dr. Villatoro on 08-15-2022 Thin prep Papanicolaou smear with manual screening 9 5-15 [facility] Culture, urineOrdered By: Dr Marine Christiansen on 08-14-2022 Bacteria identified Cx Nom (U) Escherichia coli [facility] Basophil percentageOrdered B y: Dr. Urbina on 08-13-2022 Bilirubin [Mass/Vol] 0.50 mg/dL 0.20-1.00 [facility] Comment on above: For patients on eltr ombopag therapy, use of Dimension Harvest TBIL is not recommended. Protein [Mass/Vol] 8.1 g/dL 6.4-8.2 [facility] Erythrocyte sedimentation ra teOrdered By: Dr. Villatoro on 08-13-2022 ESR (Bld) [Velocity] 43 mm/h 0-30 [facility] Laboratory - Chemistry and C hemistry - challengeOrdered By: Dr. Urbina on 08-13-2022 ALP [Catalytic activity/Vol] 99 U/L 45-117 [facility] ALT [Catalytic activity/Vol] 11 U/L 13-56 [facility] Globulin (S) [Mass/Vol] 5.6 g/dL 2.2-4.2 [facility] Magnesium [Mass/Vol] 2.2 mg/dL 1.6-2.6 [facility] Serum or plasma albumin hussein urement (mass/volume)Ordered By: Dr. Urbina on 08-13-2022 Albumin [Mass/Vol] 2.5 g/dL 3.2-5.0 [facility] Serum or plasma albumin/glob ulin mass ratioOrdered By: Dr. Urbina on 08-13-2022 Albumin/Globulin [Mass ratio] 0.4 {ratio} 0.9-2.4 [facility] Thin prep Papanicolaou smear with manual screeningOrdered By: Dr. Urbina on 08-13-2022 Thin prep Papanicolaou smear with manual screening 8 U/L 15-37 [facility] Absolute lymphocyte countOrd ered By: Dr. Christiansen on 08-12-2022 Lymphocytes Auto (Unsp spec) [#/Vol] 3.81 10*3/uL 0.83-4.51 [facility] Basophil percentageOrdered B y: Dr. Christiansen on 08-12-2022 Basophil percentage 10-25 SEEN /hpf 0-5 [facility] Basophils/100 WBC (Bld) 0.3 % 0-1 [facility] Bilirubin [Mass/Vol] 0.50 mg/dL 0.20-1.00 [facility] Comment on above: For patients on eltr ombopag therapy, use of Dimension Harvest TBIL is not recommended. Chloride [Moles/Vol] 95 mmol/L 98-107 [facility] Eosinophils/100 WBC (Bld) 0.1 % 0-5 [facility] Glucose [Mass/Vol] 230 mg/dL 74-106 [facility] Comment on above: Glucose result great er than or equal to 200 mg/dLsuggests DIABETES MELLITUS per A.D.A. criteria. Neutrophils (Bld) [#/Vol] 13.2 10*3/uL 2.0-7.7 [facility] Neutrophils/100 WBC (Bld) 69.8 % 47-70 [facility] Potassium [Moles/Vol] 3.9 mmol/L 3.5-5.1 [facility] Comment on above: Slight Hemolysis, Re sult may be falsely increased. Protein [Mass/Vol] 9.2 g/dL 6.4-8.2 [facility] Sodium [Moles/Vol] 130 mmol/L 136-145 [facility] WBC (Bld) [#/Vol] 18.9 10*3/uL 4.4-11.0 [facility] Bilirubin Test strip Ql (U)O rdered By: Dr. Christiansen on 08-12-2022 Bilirubin Ql (U) Negative Negative [facility] Blood erythrocytes count (nu mber/volume)Ordered By: Dr. Christiansen on 08-12-2022 RBC (Bld) [#/Vol] 4.35 10*6/uL 4.2-5.4 [facility] Blood hemoglobin measurement (mass/volume)Ordered By: Dr. Christiansen on 08-12-2022 Hemoglobin (Bld) [Mass/Vol] 11.4 g/dL 12.0-15.0 [facility] Blood lymphocytes/100 leukoc ytesOrdered By: Dr. Christiansen on 08-12-2022 Lymphocytes/100 WBC (Bld) 20.1 % 19-41 [facility] Blood manual differential co mment interpretation (narrative result)Ordered By: Dr. Christiansen on 08-12-2022 Manual differential comment Franky (Bld) [Interp] SCANNED [facility] Comment on above: MONOCYTOSIS NOTED Blood monocytes/100 leukocyt esOrdered By: Dr. Christiansen on 08-12-2022 Monocytes/100 WBC (Bld) 8.7 % 0-10 [facility] Blood platelet mean volumeOr dered By: Dr. Christiansen on 08-12-2022 Platelet mean volume (Bld) [Entitic vol] 9.3 fL 6.2-12.0 [facility] Determination of erythrocyte mean corpuscular volume (MCV)Ordered By: Dr. Christiansen on 08-12-2022 MCV (RBC) [Entitic vol] 78.2 fL 81-99 [facility] Glucose Glucometer (BldC) [M ass/Vol]Ordered By: Dr. Urbina on 08-12-2022 Glucose [Mass/Vol] 212 mg/dL 74-106 [facility] Comment on above: MANAGEMENT OF PATIEN T CARE PER NURSING PROTOCOL Hematocrit Auto (Bld) [Volum e fraction]Ordered By: Dr. Christiansen on 08-12-2022 Hematocrit (Bld) [Volume fraction] 34.0 % 37-47 [facility] Ketones Test strip Ql (U)Ord ered By: Dr. Christiansen on 08-12-2022 Ketones Ql (U) 15 mg/dl Negative [facility] Laboratory - Chemistry and C hemistry - challengeOrdered By: Dr. Christiansen on 08-12-2022 ALP [Catalytic activity/Vol] 136 U/L 45-117 [facility] ALT [Catalytic activity/Vol] 13 U/L 13-56 [facility] CO2 [Moles/Vol] 23.0 mmol/L 21.0-32.0 [facility] Globulin (S) [Mass/Vol] 6.3 g/dL 2.2-4.2 [facility] Magnesium [Mass/Vol] 1.6 mg/dL 1.6-2.6 [facility] Comment on above: Slight Hemolysis, Re sult may be falsely increased. Urea nitrogen/Creatinine [Mass ratio] 7.2 mg/mg 10-20 [facility] Laboratory - Hematology and Cell countsOrdered By: Dr. Christiansen on 08-12-2022 Erythrocyte distribution width (RBC) [Entitic vol] 36.9 fL 35.1-43.9 [facility] Erythrocyte distribution width (RBC) [Ratio] 12.9 % 11.6-14.6 [facility] Immature granulocytes/100 WBC (Bld) 1.000 % 0.0-0.9 [facility] Comment on above: IG% - Immature Granu locytes (promyelocytes, myelocytes and metamyelocytes) > 1% indicates that a LEFT SHIFT is Present. MCH (RBC) [Entitic mass] 26.2 pg 27.0-32.0 [facility] Nucleated RBC/100 WBC (Bld) [Ratio] 0 % 0-5 [facility] MCHC Auto (RBC) [Mass/Vol]Or dered By: Dr. Christiansen on 08-12-2022 MCHC (RBC) [Mass/Vol] 33.5 g/dL 32-36 [facility] Mucus LM Ql (Urine sed)Order ed By: Dr. Christiansen on 08-12-2022 Mucus Ql (Urine sed) 0 SEEN /hpf [facility] Nitrite Test strip Ql (U)Ord ered By: Dr. Christiansen on 08-12-2022 Nitrite Ql (U) Negative Negative [facility] No Panel InformationOrdered By: Dr. Christiansen on 08-12-2022 Estimated Creatinine Clearance Calc 69.38 ml/min [facility] Estimated GFR (MDRD) Amer 74 mL/min >60 [facility] Comment on above: GFR Calc Estimated GFR (MDRD) Non-Af Amer 61 mL/min >60 [facility] Comment on above: Non- GFR Calc Troponin I High Sensitivity 6 pg/mL 3.0-54.0 [facility] Comment on above: Please Note: New Catherine t Units and Gender Specific Reference Ranges. For more information see Policy Stat Procedure Harvest High Sensitivity Troponin (TNIH) and attachments. Platelets bldOrdered By: Dr. Christiansen on 08-12-2022 Platelets (Bld) [#/Vol] 453 10*3/uL 150-450 [facility] Protein Test strip Ql (U)Ord ered By: Dr. Christiansen on 08-12-2022 Protein Ql (U) 100 mg/dl Negative [facility] Review by pathologistOrdered By: Dr. Christiansen on 08-12-2022 Pathologist review Franky (Unsp spec) [Interp] Zahraa waite [facility] Pathologist review Franky (Unsp spec) [Interp] Reviewed [facility] Comment on above: Previous reported re sult: Zahraa waite Edited by: RGOOD on 08/14/22:0949Neutrophilic leukocytosis.Microcytic RBCs.Clinical correlation suggested.Franki Glez D.O. 08/14/22 AMENDED REPORT 08/14/22 0949 PATH REV previously reported as: Zahraa waite Serum or plasma acetone hussein urement (mass/volume)Ordered By: Dr. Christiansen on 08-12-2022 Acetone [Mass/Vol] Negative NEG [facility] Serum or plasma albumin hussein urement (mass/volume)Ordered By: Dr. Christiansen on 08-12-2022 Albumin [Mass/Vol] 2.9 g/dL 3.2-5.0 [facility] Serum or plasma albumin/glob ulin mass ratioOrdered By: Dr. Christiansen on 08-12-2022 Albumin/Globulin [Mass ratio] 0.5 {ratio} 0.9-2.4 [facility] Serum or plasma calcium hussein urement (mass/volume)Ordered By: Dr. Christiansen on 08-12-2022 Calcium [Mass/Vol] 9.6 mg/dL 8.5-10.1 [facility] Serum or plasma creatinine m easurement (mass/volume)Ordered By: Dr. Christiansen on 08-12-2022 Creatinine [Mass/Vol] 1.11 mg/dL 0.55-1.02 [facility] Comment on above: The validity of the calculated GFR & GFRAA in patients over 70 years has not been determined. Clinical correlation is essential. Serum or plasma urea nitroge n measurement (mass/volume)Ordered By: Dr. Christiansen on 08-12-2022 Urea nitrogen [Mass/Vol] 8 mg/dL 7-18 [facility] Squamous epithelial cells de tection in urine sediment by light microscopyOrdered By: Dr. Christiansen on 08-12-2022 Epithelial cells.squamous LM Ql (Urine sed) 0-5 SEEN /hpf 5-10 [facility] Thin prep Papanicolaou smear with manual screeningOrdered By: Dr. Christiansen on 08-12-2022 Thin prep Papanicolaou smear with manual screening 20 U/L 15-37 [facility] Comment on above: Slight Hemolysis, Re sult may be falsely increased. Thin prep Papanicolaou smear with manual screening 12 5-15 [facility] Urine blood detectionOrdered By: Dr. Christiansen on 08-12-2022 RBC Ql (U) 150 /ul Negative [facility] RBC Ql (U) 0 SEEN /hpf 0-5 [facility] Urine clarityOrdered By: Dr. Christiansen on 08-12-2022 Clarity (U) Clear Clear [facility] Urine color determinationOrd ered By: Dr. Christiansen on 08-12-2022 Color (U) Yellow Yellow [facility] Urine glucose detectionOrder ed By: Dr. Christiansen on 08-12-2022 Glucose Ql (U) 50 mg/dl Normal [facility] Urine leukocyte esterase det ection by dipstickOrdered By: Dr. Christiansen on 08-12-2022 Leukocyte esterase Test strip Ql (U) 100 /ul Negative [facility] Urine pHOrdered By: Dr. Ethan arriola on 08-12-2022 pH (U) 6.0 [pH] 5.0 - 8.0 [facility] Urine sediment bacteria coun t by microscopy (number/high power field)Ordered By: Dr. Christiansen on 08-12-2022 Bacteria LM.HPF (Urine sed) [#/Area] 0 /[HPF] None Seen [facility] Urine specific gravity measu rementOrdered By: Dr. Christiansen on 08-12-2022 Specific gravity (U) [Rel density] 1.010 1.002-1.030 [facility] Urobilinogen Auto test strip Ql (U)Ordered By: Dr. Christiansen on 08-12-2022 Urobilinogen Ql (U) Normal mg/dl Normal [facility] Acid fast bacilli (AFB) cult ureOrdered By: Dr. Matias on 08-09-2022 Mycobacterium sp identified Org specific cx Nom (Unsp spec) [facility] Thin prep Papanicolaou smear with manual screeningOrdered By: Dr. Matias on 08-09-2022 Thin prep Papanicolaou smear with manual screening [facility] Absolute lymphocyte countOrd ered By: Dr. Rao on 06-29-2022 Lymphocytes Auto (Unsp spec) [#/Vol] 2.81 10*3/uL 0.83-4.51 [facility] Basophil percentageOrdered B y: Dr. Rao on 06-29-2022 Basophils/100 WBC (Bld) 0.7 % 0-1 [facility] Chloride [Moles/Vol] 105 mmol/L 98-107 [facility] Eosinophils/100 WBC (Bld) 1.3 % 0-5 [facility] Glucose [Mass/Vol] 192 mg/dL 74-106 [facility] Comment on above: Fasting Glucose resu lt greater than or equal to 126 mg/dL suggests DIABETES MELLITUS per A.D.A. criteria. Neutrophils (Bld) [#/Vol] 4.2 10*3/uL 2.0-7.7 [facility] Neutrophils/100 WBC (Bld) 51.1 % 47-70 [facility] Potassium [Moles/Vol] 3.9 mmol/L 3.5-5.1 [facility] Sodium [Moles/Vol] 136 mmol/L 136-145 [facility] WBC (Bld) [#/Vol] 8.2 10*3/uL 4.4-11.0 [facility] Blood erythrocytes count (nu mber/volume)Ordered By: Dr. Rao on 06-29-2022 RBC (Bld) [#/Vol] 4.46 10*6/uL 4.2-5.4 [facility] Blood hemoglobin measurement (mass/volume)Ordered By: Dr. Rao on 06-29-2022 Hemoglobin (Bld) [Mass/Vol] 11.7 g/dL 12.0-15.0 [facility] Blood lymphocytes/100 leukoc ytesOrdered By: Dr. Rao on 06-29-2022 Lymphocytes/100 WBC (Bld) 34.3 % 19-41 [facility] Blood monocytes/100 leukocyt esOrdered By: Dr. Rao on 06-29-2022 Monocytes/100 WBC (Bld) 9.9 % 0-10 [facility] Blood platelet mean volumeOr dered By: Dr. Rao on 06-29-2022 Platelet mean volume (Bld) [Entitic vol] 9.1 fL 6.2-12.0 [facility] Determination of erythrocyte mean corpuscular volume (MCV)Ordered By: Dr. Rao on 06-29-2022 MCV (RBC) [Entitic vol] 81.8 fL 81-99 [facility] Glucose Glucometer (BldC) [M ass/Vol]Ordered By: Dr. Lr on 06-29-2022 Glucose [Mass/Vol] 251 mg/dL 74-106 [facility] Comment on above: MANAGEMENT OF PATIEN T CARE PER NURSING PROTOCOL Hematocrit Auto (Bld) [Volum e fraction]Ordered By: Dr. Rao on 06-29-2022 Hematocrit (Bld) [Volume fraction] 36.5 % 37-47 [facility] Laboratory - Chemistry and C hemistry - challengeOrdered By: Dr. Rao on 06-29-2022 CO2 [Moles/Vol] 24.0 mmol/L 21.0-32.0 [facility] Urea nitrogen/Creatinine [Mass ratio] 18.4 mg/mg 10-20 [facility] Laboratory - Hematology and Cell countsOrdered By: Dr. Rao on 06-29-2022 Erythrocyte distribution width (RBC) [Entitic vol] 41.2 fL 35.1-43.9 [facility] Erythrocyte distribution width (RBC) [Ratio] 14.1 % 11.6-14.6 [facility] Immature granulocytes/100 WBC (Bld) 2.700 % 0.0-0.9 [facility] Comment on above: IG% - Immature Granu locytes (promyelocytes, myelocytes and metamyelocytes) > 1% indicates that a LEFT SHIFT is Present. MCH (RBC) [Entitic mass] 26.2 pg 27.0-32.0 [facility] Nucleated RBC/100 WBC (Bld) [Ratio] 0.2 % 0-5 [facility] Laboratory - Microbiology an d Antimicrobial susceptibilityOrdered By: Dr. Hinson on 06-29-2022 Bacteria identified Cx Nom (Bld) No growth in 5 days. [facility] MCHC Auto (RBC) [Mass/Vol]Or dered By: Dr. Rao on 06-29-2022 MCHC (RBC) [Mass/Vol] 32.1 g/dL 32-36 [facility] No Panel InformationOrdered By: Dr. Rao on 06-29-2022 Estimated Creatinine Clearance Calc 108.46 ml/min [facility] Estimated GFR (MDRD) Amer 125 mL/min >60 [facility] Comment on above: GFR Calc Estimated GFR (MDRD) Non-Af Amer 103 mL/min >60 [facility] Comment on above: Non- GFR Calc Platelets bldOrdered By: Dr. Rao on 06-29-2022 Platelets (Bld) [#/Vol] 363 10*3/uL 150-450 [facility] Serum or plasma calcium hussein urement (mass/volume)Ordered By: Dr. Rao on 06-29-2022 Calcium [Mass/Vol] 8.4 mg/dL 8.5-10.1 [facility] Serum or plasma creatinine m easurement (mass/volume)Ordered By: Dr. Rao on 06-29-2022 Creatinine [Mass/Vol] 0.71 mg/dL 0.55-1.02 [facility] Comment on above: The validity of the calculated GFR & GFRAA in patients over 70 years has not been determined. Clinical correlation is essential. Serum or plasma urea nitroge n measurement (mass/volume)Ordered By: Dr. Rao on 06-29-2022 Urea nitrogen [Mass/Vol] 13 mg/dL 01-26 [facility] Thin prep Papanicolaou smear with manual screeningOrdered By: Dr. Rao on 06-29-2022 Thin prep Papanicolaou smear with manual screening 7 11-23 [facility] Vancomycin troughOrdered By: Dr. Rao on 06-28-2022 Vancomycin trough [Mass/Vol] 15.6 ug/mL 5.0-15.0 [facility] Comment on above: VANCOMYCIN STANDARED DRUG THERAPY TROUGH LEVEL: 5.0 - 15.0 mg/L VANCOMYCIN HIGH INTENSITY THERAPY TROUGH LEVEL: 15.0 - 20.0 mg/L High Intensity therapy recommended for serious lifethreatening infections include:- Dwomafjwnp-Ipthxtgoakie-Vbhgcoecy (Ventilator/Healtcare Associated)-Sepsis PLEASE CONTACT PHARMACY SERVICES (#[id number]) FOR INTERPRETATIONOF RESULTS. Bacteria identified Cx Nom ( Wound)Ordered By: Dr. Matias on 06-26-2022 Wound Culture Streptococcus agalactiae (B) [facility] Culture, urineOrdered By: Dr Marine Hinson on 06-26-2022 Bacteria identified Cx Nom (U) Culture exhibits no growth. [facility] Laboratory - Chemistry and C hemistry - challengeOrdered By: Dr. Morton on 06-26-2022 HCG ( test) Ql (U) Negative [facility] Comment on above: Very dilute urine sp ecimens, as indicated by a low specificgravity, may not contain signs sales representative levels of hCG. If is still suspected, a first morning urinespecimen should be collected 48 hours later and tested. Absolute lymphocyte counton 06-25-2022 Lymphocytes Auto (Unsp spec) [#/Vol] 3.27 10*3/uL 0.83-4.51 [facility] Work Phone: Basophil percentageon 2021 Basophils/100 WBC (Bld) 0.7 % 0-1 [facility] Work Phone: Chloride [Moles/Vol] 104 mmol/L 98-107 [facility] Work Phone: Eosinophils/100 WBC (Bld) 1.2 % 0-5 [facility] Work Phone: Glucose [Mass/Vol] 261 mg/dL 74-106 [facility] Work Phone: Comment on above: Glucose result great er than or equal to 200 mg/dLsuggests DIABETES MELLITUS per A.D.A. criteria. Neutrophils (Bld) [#/Vol] 4.8 10*3/uL 2.0-7.7 [facility] Work Phone: Neutrophils/100 WBC (Bld) 53.1 % 47-70 [facility] Work Phone: Potassium [Moles/Vol] 4.3 mmol/L 3.5-5.1 [facility] Work Phone: Sodium [Moles/Vol] 135 mmol/L 136-145 [facility] Work Phone: WBC (Bld) [#/Vol] 9.0 10*3/uL 4.4-11.0 [facility] Work Phone: Blood erythrocytes count (nu mber/volume)on 06-25-2022 RBC (Bld) [#/Vol] 4.62 10*6/uL 4.2-5.4 [facility] Work Phone: Blood hemoglobin measurement (mass/volume)on 06-25-2022 Hemoglobin (Bld) [Mass/Vol] 12.1 g/dL 12.0-15.0 [facility] Work Phone: Blood lymphocytes/100 leukoc yteson 06-25-2022 Lymphocytes/100 WBC (Bld) 36.4 % 19-41 [facility] Work Phone: Blood monocytes/100 leukocyt eson 06-25-2022 Monocytes/100 WBC (Bld) 7.0 % 0-10 [facility] Work Phone: Blood platelet mean volumeon 06-25-2022 Platelet mean volume (Bld) [Entitic vol] 9.5 fL 6.2-12.0 [facility] Work Phone: Determination of erythrocyte mean corpuscular volume (MCV)on 06-25-2022 MCV (RBC) [Entitic vol] 82.0 fL 81-99 [facility] Work Phone: Glucose Glucometer (BldC) [M ass/Vol]on 06-25-2022 Glucose [Mass/Vol] 263 mg/dL 74-106 [facility] Work Phone: Comment on above: MANAGEMENT OF PATIEN T CARE PER NURSING PROTOCOL Hematocrit Auto (Bld) [Volum e fraction]on 06-25-2022 Hematocrit (Bld) [Volume fraction] 37.9 % 37-47 [facility] Work Phone: Laboratory - Chemistry and C hemistry - challengeon 06-25-2022 CO2 [Moles/Vol] 24.0 mmol/L 21.0-32.0 [facility] Work Phone: Urea nitrogen/Creatinine [Mass ratio] 13.1 mg/mg 10-20 [facility] Work Phone: Laboratory - Hematology and Cell countson 06-25-2022 Erythrocyte distribution width (RBC) [Entitic vol] 41.4 fL 35.1-43.9 [facility] Work Phone: [phone] Erythrocyte distribution width (RBC) [Ratio] 14.1 % 11.6-14.6 [facility] Work Phone: [phone] Immature granulocytes/100 WBC (Bld) 1.600 % 0.0-0.9 [facility] Work Phone: [phone] Comment on above: IG% - Immature Granu locytes (promyelocytes, myelocytes and metamyelocytes) > 1% indicates that a LEFT SHIFT is Present. MCH (RBC) [Entitic mass] 26.2 pg 27.0-32.0 [facility] Work Phone: Nucleated RBC/100 WBC (Bld) [Ratio] 0 % 0-5 [facility] Work Phone: [phone] MCHC Auto (RBC) [Mass/Vol]on 06-25-2022 MCHC (RBC) [Mass/Vol] 31.9 g/dL 32-36 [facility] Work Phone: No Panel Informationon 06-25 Estimated Creatinine Clearance Calc 101.33 ml/min [facility] Work Phone: [phone] Estimated GFR (MDRD) Amer 114 mL/min >60 [facility] Work Phone: [phone] Comment on above: GFR Calc Estimated GFR (MDRD) Non-Af Amer 95 mL/min >60 [facility] Work Phone: [phone] Comment on above: Non- GFR Calc Platelets bldon 06-25-2022 Platelets (Bld) [#/Vol] 353 10*3/uL 150-450 [facility] Work Phone: [phone] Serum or plasma calcium hussein urement (mass/volume)on 06-25-2022 Calcium [Mass/Vol] 8.6 mg/dL 8.5-10.1 [facility] Work Phone: [phone] Serum or plasma creatinine m easurement (mass/volume)on 06-25-2022 Creatinine [Mass/Vol] 0.76 mg/dL 0.55-1.02 [facility] [place] Work Phone: [phone] Comment on above: The validity of the calculated GFR & GFRAA in patients over 70 years has not been determined. Clinical correlation is essential. Serum or plasma urea nitroge n measurement (mass/volume)on 06-25-2022 Urea nitrogen [Mass/Vol] 10 mg/dL 7- [facility] Work Phone: [phone] Thin prep Papanicolaou smear with manual screeningon 06-25-2022 Thin prep Papanicolaou smear with manual screening 7 - [facility] Work Phone: [phone] Absolute lymphocyte counton 06-24-2022 Lymphocytes Auto (Unsp spec) [#/Vol] 3.15 10*3/uL 0.83-4.51 [facility] Work Phone: [phone] Basophil percentageOrdered B y: Dr. Hinson on 06-24-2022 Lactate [Moles/Vol] 3.0 mmol/L 0.4-2.0 [facility] Comment on above: Critical Result(s) C alled at: 18:06:09 06/24/2022 by: LUIS E VALENZUELA.TO SIVA JANG4 RN MS-3 Results read back by same. Basophil percentage 0 SEEN /hpf 0-5 [facility] Bilirubin [Mass/Vol] 0.30 mg/dL 0.20-1.00 [facility] Comment on above: For patients on eltr ombopag therapy, use of Dimension Harvest TBIL is not recommended. Protein [Mass/Vol] 8.0 g/dL 6.4-8.2 [facility] Basophil percentageon 2021 Basophils/100 WBC (Bld) 0.5 % 0-1 [facility] Work Phone: Chloride [Moles/Vol] 104 mmol/L 98-107 [facility] Work Phone: [phone] Eosinophils/100 WBC (Bld) 0.7 % 0-5 [facility] Work Phone: [phone] Glucose [Mass/Vol] 318 mg/dL 74-106 [facility] Work Phone: [phone] Comment on above: Glucose result great er than or equal to 200 mg/dLsuggests DIABETES MELLITUS per A.D.A. criteria. Lactate [Moles/Vol] 4.8 mmol/L 0.4-2.0 [facility] Work Phone: Comment on above: Critical Result(s) C alled at: 13:11:31 06/24/2022 by: Gayathri Edmond. Results read back by same. Neutrophils (Bld) [#/Vol] 5.1 10*3/uL 2.0-7.7 [facility] Work Phone: [phone] Neutrophils/100 WBC (Bld) 56.2 % 47-70 [facility] Work Phone: [phone] Potassium [Moles/Vol] 3.9 mmol/L 3.5-5.1 [facility] Work Phone: [phone] Sodium [Moles/Vol] 138 mmol/L 136-145 [facility] Work Phone: WBC (Bld) [#/Vol] 9.1 10*3/uL 4.4-11.0 [facility] Work Phone: Bilirubin Test strip Ql (U)O rdered By: Dr. Hinson on 06-24-2022 Bilirubin Ql (U) Negative Negative [facility] Blood erythrocytes count (nu mber/volume)on 06-24-2022 RBC (Bld) [#/Vol] 4.73 10*6/uL 4.2-5.4 [facility] Work Phone: Blood hemoglobin measurement (mass/volume)on 06-24-2022 Hemoglobin (Bld) [Mass/Vol] 12.8 g/dL 12.0-15.0 [facility] Work Phone: Blood lymphocytes/100 leukoc yteson 06-24-2022 Lymphocytes/100 WBC (Bld) 34.6 % 19-41 [facility] Work Phone: Blood monocytes/100 leukocyt eson 06-24-2022 Monocytes/100 WBC (Bld) 6.8 % 0-10 [facility] Work Phone: Blood platelet mean volumeon 06-24-2022 Platelet mean volume (Bld) [Entitic vol] 9.3 fL 6.2-12.0 [facility] Work Phone: [phone] Determination of erythrocyte mean corpuscular volume (MCV)on 06-24-2022 MCV (RBC) [Entitic vol] 81.2 fL 81-99 [facility] Work Phone: [phone] Gram stain for investigation of transfusion reactionOrdered By: Dr. Matias on 06-24-2022 Microscopic observation Gram stain Nom (Unsp spec) [facility] Hematocrit Auto (Bld) [Volum e fraction]on 06-24-2022 Hematocrit (Bld) [Volume fraction] 38.4 % 37-47 [facility] Work Phone: [phone] Ketones Test strip Ql (U)Ord ered By: Dr. Hinson on 06-24-2022 Ketones Ql (U) 15 mg/dl Negative [facility] Laboratory - Chemistry and C hemistry - challengeOrdered By: Dr. Hinson on 06-24-2022 ALP [Catalytic activity/Vol] 76 U/L 45-117 [facility] ALT [Catalytic activity/Vol] 22 U/L 13-56 [facility] Globulin (S) [Mass/Vol] 5.2 g/dL 2.2-4.2 [facility] Laboratory - Chemistry and C hemistry - challengeon 06-24-2022 CO2 [Moles/Vol] 28.0 mmol/L 21.0-32.0 [facility] Work Phone: [phone] Urea nitrogen/Creatinine [Mass ratio] 13.8 mg/mg 10-20 [facility] Work Phone: [phone] Laboratory - Hematology and Cell countson 06-24-2022 Erythrocyte distribution width (RBC) [Entitic vol] 41.3 fL 35.1-43.9 [facility] Work Phone: [phone] Erythrocyte distribution width (RBC) [Ratio] 14.2 % 11.6-14.6 [facility] Work Phone: [phone] Immature granulocytes/100 WBC (Bld) 1.200 % 0.0-0.9 [facility] Work Phone: Comment on above: IG% - Immature Granu locytes (promyelocytes, myelocytes and metamyelocytes) > 1% indicates that a LEFT SHIFT is Present. MCH (RBC) [Entitic mass] 27.1 pg 27.0-32.0 [facility] Work Phone: Nucleated RBC/100 WBC (Bld) [Ratio] 0 % 0-5 [facility] Work Phone: MCHC Auto (RBC) [Mass/Vol]on 06-24-2022 MCHC (RBC) [Mass/Vol] 33.3 g/dL 32-36 [facility] Work Phone: Mucus LM Ql (Urine sed)Order ed By: Dr. Hinson on 06-24-2022 Mucus Ql (Urine sed) 0 SEEN /hpf [facility] Nitrite Test strip Ql (U)Ord ered By: Dr. Hinson on 06-24-2022 Nitrite Ql (U) Negative Negative [facility] No Panel Informationon 06-24 Estimated Creatinine Clearance Calc 96.26 ml/min [facility] Work Phone: Estimated GFR (MDRD) Amer 109 mL/min >60 [facility] Work Phone: Comment on above: GFR Calc Estimated GFR (MDRD) Non-Af Amer 90 mL/min >60 [facility] Work Phone: Comment on above: Non- GFR Calc Platelets bldon 06-24-2022 Platelets (Bld) [#/Vol] 345 10*3/uL 150-450 [facility] Work Phone: Protein Test strip Ql (U)Ord ered By: Dr. Hinson on 06-24-2022 Protein Ql (U) 15 mg/dl Negative [facility] Serum or plasma albumin hussein urement (mass/volume)Ordered By: Dr. Hinson on 06-24-2022 Albumin [Mass/Vol] 2.8 g/dL 3.2-5.0 [facility] Serum or plasma albumin/glob ulin mass ratioOrdered By: Dr. Hinson on 06-24-2022 Albumin/Globulin [Mass ratio] 0.5 {ratio} 0.9-2.4 [facility] Serum or plasma calcium hussein urement (mass/volume)on 06-24-2022 Calcium [Mass/Vol] 9.1 mg/dL 8.5-10.1 oste r [facility] Work Phone: Serum or plasma creatinine m easurement (mass/volume)on 06-24-2022 Creatinine [Mass/Vol] 0.80 mg/dL 0.55-1.02 [place] [facility] Work Phone: Comment on above: The validity of the calculated GFR & GFRAA in patients over 70 years has not been determined. Clinical correlation is essential. Serum or plasma urea nitroge n measurement (mass/volume)on 06-24-2022 Urea nitrogen [Mass/Vol] 11 mg/dL 7-18 [facility] Work Phone: Squamous epithelial cells de tection in urine sediment by light microscopyOrdered By: Dr. Hinson on 06-24-2022 Epithelial cells.squamous LM Ql (Urine sed) 5-10 SEEN /hpf 5-10 [facility] Thin prep Papanicolaou smear with manual screeningOrdered By: Dr. Hinson on 06-24-2022 Thin prep Papanicolaou smear with manual screening 10 U/L 15-37 [facility] Thin prep Papanicolaou smear with manual screeningon 06-24-2022 Thin prep Papanicolaou smear with manual screening 6 5-15 [facility] Work Phone: Urine blood detectionOrdered By: Dr. Hinson on 06-24-2022 RBC Ql (U) 25 /ul Negative [facility] RBC Ql (U) 10-25 SEEN /hpf 0-5 [facility] Urine clarityOrdered By: Dr. Hinson on 06-24-2022 Clarity (U) Sl. Cloudy Clear [facility] Urine color determinationOrd ered By: Dr. Hinson on 06-24-2022 Color (U) Yellow Yellow [facility] Urine glucose detectionOrder ed By: Dr. Hinson on 06-24-2022 Glucose Ql (U) 1000 mg/dl Normal [facility] Urine leukocyte esterase det ection by dipstickOrdered By: Dr. Hinson on 06-24-2022 Leukocyte esterase Test strip Ql (U) Negative Negative [facility] Urine pHOrdered By: Dr. Vonda aden on 06-24-2022 pH (U) 5.0 [pH] 5.0 - 8.0 [facility] Urine sediment bacteria coun t by microscopy (number/high power field)Ordered By: Dr. Hinson on 06-24-2022 Bacteria LM.HPF (Urine sed) [#/Area] RARE /hpf None Seen [facility] Urine specific gravity measu rementOrdered By: Dr. Hinson on 06-24-2022 Specific gravity (U) [Rel density] 1.025 1.002-1.030 [facility] Urobilinogen Auto test strip Ql (U)Ordered By: Dr. Hinson on 06-24-2022 Urobilinogen Ql (U) Normal mg/dl Normal [facility] Whole blood hemoglobin A1c/t otal hemoglobin ratio (mass fraction)Ordered By: Dr. Rao on 06-24-2022 HbA1c (Bld) [Mass fraction] 10.6 % 3.8-5.6 [facility] Comment on above: Normal < 5.7 % Predi abetic 5.7 - 6.4 % Diabetic >or= 6.5 % Please note range changes. No Panel InformationOrdered By: Dr. Matias on 06-23-2022 Methicillin-Resist S.aureus DNA PCR Positive Negative [facility] Staphylococcus aureus DNA de tection by probe and target amplification methodOrdered By: Dr. Matias on 06-23-2022 S. aureus DNA REBECCA+probe Ql (Unsp spec) Positive Negative [facility] Absolute lymphocyte countOrd ered By: Dr. Matias on 05-07-2022 Lymphocytes Auto (Unsp spec) [#/Vol] 0.99 10*3/uL 0.83-4.51 [facility] Comment on above: Previous reported re sult: 5.07 X10^3/uLEdited by: BHUPINDER on 05/07/22:1437 AMENDED REPORT 05/07/221436 Absolute Lymph previously reported as: 5.07 H X10^3/uL Basophil percentageOrdered B y: Dr. Matias on 05-07-2022 Basophil percentage [employer] [facility] Comment on above: Previous reported re sult: [...] 0.6 % Bilirubin [Mass/Vol] 0.20 mg/dL 0.20-1.00 [facility] Comment on above: For patients on eltr ombopag therapy, use of Dimension Harvest TBIL is not recommended. Chloride [Moles/Vol] 101 mmol/L 98-107 [facility] Glucose [Mass/Vol] 207 mg/dL 74-106 [facility] Comment on above: Glucose result great er than or equal to 200 mg/dLsuggests DIABETES MELLITUS per A.D.A. criteria. Neutrophils (Bld) [#/Vol] 8.8 10*3/uL 2.0-7.7 [facility] Comment on above: Previous reported re sult: 4.8 X10^3/uLEdited by: BHUPINDER on 05/07/22:1436 AMENDED REPORT 05/07/221435 Absolute Neut previously reported as: 4.8 X10^3/uL Potassium [Moles/Vol] 4.0 mmol/L 3.5-5.1 [facility] Protein [Mass/Vol] 8.4 g/dL 6.4-8.2 [facility] Sodium [Moles/Vol] 134 mmol/L 136-145 [facility] WBC (Bld) [#/Vol] 11.1 10*3/uL 4.4-11.0 [facility] Blood band neutrophil count as percentage of total leukocytesOrdered By: Dr. Matias on 05-07-2022 Band form neutrophils/100 WBC (Bld) 6 % 0-5 [facility] Blood erythrocytes count (nu mber/volume)Ordered By: Dr. Matias on 05-07-2022 RBC (Bld) [#/Vol] 4.81 10*6/uL 4.2-5.4 [facility] Blood hemoglobin measurement (mass/volume)Ordered By: Dr. Matias on 05-07-2022 Hemoglobin (Bld) [Mass/Vol] 13.0 g/dL 12.0-15.0 [facility] Blood lymphocytes/100 leukoc ytesOrdered By: Dr. Matias on 05-07-2022 Lymphocytes/100 WBC (Bld) [employer] [facility] Comment on above: Previous reported re sult: 45.7 %Edited by: BHUPINDER on 05/07/22:1430 AMENDED REPORT 05/07/22 1430 LY% previously reported as: 45.7 H % Lymphocytes/100 WBC (Bld) 9 % 19-41 [facility] Blood monocytes/100 leukocyt esOrdered By: Dr. Matias on 05-07-2022 Monocytes/100 WBC (Bld) [facility] Comment on above: Previous reported re sult: 5.2 %Edited by: BHUPINDER on 05/07/22:1430 AMENDED REPORT 05/07/22 1430 MONO% previously reported as: 5.2 % Monocytes/100 WBC (Bld) 12 % 0-10 [facility] Blood platelet mean volumeOr dered By: Dr. Matias on 05-07-2022 Platelet mean volume (Bld) [Entitic vol] 9.0 fL 6.2-12.0 [facility] Blood platelet morphology de termination (nominal result)Ordered By: Dr. Matias on 05-07-2022 Platelet morphology finding Nom (Bld) LARGE [facility] Blood segmented neutrophils/ [address]: [address] Matias on 05-07-2022 Segmented neutrophils/100 WBC (Bld) 73 % 47-70 [facility] Determination of erythrocyte mean corpuscular volume (MCV)Ordered By: Dr. Matias on 05-07-2022 MCV (RBC) [Entitic vol] 81.3 fL 81-99 [facility] Hematocrit Auto (Bld) [Volum e fraction]Ordered By: Dr. Matias on 05-07-2022 Hematocrit (Bld) [Volume fraction] 39.1 % 37-47 [facility] Laboratory - Chemistry and C hemistry - challengeOrdered By: Dr. Matias on 05-07-2022 ALP [Catalytic activity/Vol] 76 U/L 45-117 [facility] ALT [Catalytic activity/Vol] 23 U/L 13-56 [facility] CO2 [Moles/Vol] 25.0 mmol/L 21.0-32.0 [facility] Globulin (S) [Mass/Vol] 5.0 g/dL 2.2-4.2 [facility] Urea nitrogen/Creatinine [Mass ratio] 17.4 mg/mg 10-20 [facility] Laboratory - Hematology and Cell countsOrdered By: Dr. Matias on 05-07-2022 Erythrocyte distribution width (RBC) [Entitic vol] 41.1 fL 35.1-43.9 [facility] Erythrocyte distribution width (RBC) [Ratio] 14.0 % 11.6-14.6 [facility] MCH (RBC) [Entitic mass] 27.0 pg 27.0-32.0 [facility] Nucleated RBC/100 WBC (Bld) [Ratio] 0 % 0-5 [facility] MCHC Auto (RBC) [Mass/Vol]Or dered By: Dr. Matias on 05-07-2022 MCHC (RBC) [Mass/Vol] 33.2 g/dL 32-36 [facility] No Panel InformationOrdered By: Dr. Matias on 05-07-2022 Atypical Lymphocytes RARE % [facility] Estimated GFR (MDRD) Amer 99 mL/min >60 [facility] Comment on above: GFR Calc Estimated GFR (MDRD) Non-Af Amer 82 mL/min >60 [facility] Comment on above: Non- GFR Calc Immature Granulocyte % (Auto) [employer] [facility] Comment on above: Previous reported re sult: 1.500 %Edited by: MBLAKESSL on 05/07/22:1431 AMENDED REPORT 05/07/22 1431 IM GRAN % previously reported as: 1.500 H % IG% - Immature Granulocytes (promyelocytes, myelocytes and metamyelocytes) > 1% indicates that a LEFT SHIFT is Present. Platelets bldOrdered By: Dr. Matias on 05-07-2022 Platelets (Bld) [#/Vol] 369 10*3/uL 150-450 [facility] RBC morphologyOrdered By: Dr Marine Matias on 05-07-2022 RBC morphology finding Nom (Bld) NORM C+C NORMAL NORM C&C [facility] Review by pathologiston 04-12 Pathologist review Franky (Unsp spec) [Interp] Zahraa waite [facility] Work Phone: Review by pathologistOrdered By: Dr. Matias on 05-07-2022 Pathologist review Franky (Unsp spec) [Interp] Reviewed [facility] Comment on above: Previous reported re sult: Zahraa waite Edited by: RGOOD on 05/08/22:1599Neutrophilic leukocytosis.Clinical correlation suggested.Franki Glez D.O. 05/08/22 AMENDED REPORT 05/08/22 1553 PATH REV previously reported as: November ravindra Serum or plasma albumin hussein urement (mass/volume)Ordered By: Dr. Matias on 05-07-2022 Albumin [Mass/Vol] 3.4 g/dL 3.2-5.0 [facility] Serum or plasma albumin/glob ulin mass ratioOrdered By: Dr. Matias on 05-07-2022 Albumin/Globulin [Mass ratio] 0.7 {ratio} 0.9-2.4 [facility] Serum or plasma calcium hussein urement (mass/volume)Ordered By: Dr. Matias on 05-07-2022 Calcium [Mass/Vol] 8.7 mg/dL 8.5-10.1 [facility] Serum or plasma creatinine m easurement (mass/volume)Ordered By: Dr. Matias on 05-07-2022 Creatinine [Mass/Vol] 0.86 mg/dL 0.55-1.02 [facility] Comment on above: The validity of the calculated GFR & GFRAA in patients over 70 years has not been determined. Clinical correlation is essential. Serum or plasma urea nitroge n measurement (mass/volume)Ordered By: Dr. Matias on 05-07-2022 Urea nitrogen [Mass/Vol] 15 mg/dL 7-18 [facility] Thin prep Papanicolaou smear with manual screeningOrdered By: Dr. Matias on 05-07-2022 Thin prep Papanicolaou smear with manual screening 10 U/L 15-37 [facility] Thin prep Papanicolaou smear with manual screening 8 5-15 [facility] Basophil percentageOrdered B y: [facility] on 04-20-2022 Chloride [Moles/Vol] 104 mmol/L 98-107 [facility] Glucose [Mass/Vol] 224 mg/dL 74-106 [facility] Comment on above: Glucose result great er than or equal to 200 mg/dLsuggests DIABETES MELLITUS per A.D.A. criteria. Potassium [Moles/Vol] 3.7 mmol/L 3.5-5.1 [facility] Sodium [Moles/Vol] 139 mmol/L 136-145 [facility] WBC (Bld) [#/Vol] 9.3 10*3/uL 4.4-11.0 [facility] Blood erythrocytes count (nu mber/volume)Ordered By: [facility] on 04-20-2022 RBC (Bld) [#/Vol] 3.93 10*6/uL 4.2-5.4 [facility] Blood hemoglobin measurement (mass/volume)Ordered By: [facility] on 04-20-2022 Hemoglobin (Bld) [Mass/Vol] 10.4 g/dL 12.0-15.0 [facility] Blood platelet mean volumeOr dered By: [facility] on 04-20-2022 Platelet mean volume (Bld) [Entitic vol] 9.6 fL 6.2-12.0 [facility] Determination of erythrocyte mean corpuscular volume (MCV)Ordered By: [facility] on 04-20-2022 MCV (RBC) [Entitic vol] 83.7 fL 81-99 [facility] Erythrocyte sedimentation ra teOrdered By: [facility] on 04-20-2022 ESR (Bld) [Velocity] 60 mm/h 0-30 [facility] Hematocrit Auto (Bld) [Volum e fraction]Ordered By: [facility] on 04-20-2022 Hematocrit (Bld) [Volume fraction] 32.9 % 37-47 [facility] Laboratory - Chemistry and C hemistry - challengeOrdered By: [facility] on 04-20-2022 CO2 [Moles/Vol] 28.0 mmol/L 21.0-32.0 [facility] Urea nitrogen/Creatinine [Mass ratio] 16.3 mg/mg 10-20 [facility] Laboratory - Hematology and Cell countsOrdered By: [facility] on 04-20-2022 Erythrocyte distribution width (RBC) [Entitic vol] 41.4 fL 35.1-43.9 [facility] Erythrocyte distribution width (RBC) [Ratio] 13.5 % 11.6-14.6 [facility] MCH (RBC) [Entitic mass] 26.5 pg 27.0-32.0 [facility] MCHC Auto (RBC) [Mass/Vol]Or dered By: [facility] on 04-20-2022 MCHC (RBC) [Mass/Vol] 31.6 g/dL 32-36 [facility] No Panel InformationOrdered By: [facility] on 04-20-2022 Estimated GFR (MDRD) Amer 147 mL/min >60 [facility] Comment on above: GFR Calc Estimated GFR (MDRD) Non-Af Amer 122 mL/min >60 [facility] Comment on above: Non- GFR Calc Platelets bldOrdered By: [facility] on 04-20-2022 Platelets (Bld) [#/Vol] 509 10*3/uL 150-450 [facility] Serum or plasma calcium hussein urement (mass/volume)Ordered By: [facility] on 04-20-2022 Calcium [Mass/Vol] 8.5 mg/dL 8.5-10.1 [facility] Serum or plasma creatinine m easurement (mass/volume)Ordered By: [facility] on 04-20-2022 Creatinine [Mass/Vol] 0.61 mg/dL 0.55-1.02 [facility] Comment on above: The validity of the calculated GFR & GFRAA in patients over 70 years has not been determined. Clinical correlation is essential. Serum or plasma urea nitroge n measurement (mass/volume)Ordered By: [facility] on 04-20-2022 Urea nitrogen [Mass/Vol] 10 mg/dL 7-18 [facility] Thin prep Papanicolaou smear with manual screeningOrdered By: [facility] on 04-20-2022 Thin prep Papanicolaou smear with manual screening 7 5-15 [facility] Vancomycin troughOrdered By: [facility] on 04-20-2022 Vancomycin trough [Mass/Vol] 7.2 ug/mL 5.0-15.0 [facility] Comment on above: VANCOMYCIN STANDARED DRUG THERAPY TROUGH LEVEL: 5.0 - 15.0 mg/L VANCOMYCIN HIGH INTENSITY THERAPY TROUGH LEVEL: 15.0 - 20.0 mg/L High Intensity therapy recommended for serious lifethreatening infections include:- Bnowzyirpf-Tcpsvbiizhjp-Lwtcyffzg (Ventilator/Healtcare Associated)-Sepsis PLEASE CONTACT PHARMACY SERVICES (#0153) FOR INTERPRETATIONOF RESULTS. Basophil percentageon 2021 Chloride [Moles/Vol] 103 mmol/L 98-107 [facility] Work Phone: Glucose [Mass/Vol] 188 mg/dL 74-106 [facility] Work Phone: Comment on above: Fasting Glucose resu lt greater than or equal to 126 mg/dL suggests DIABETES MELLITUS per A.D.A. criteria. Potassium [Moles/Vol] 4.3 mmol/L 3.5-5.1 [facility] Work Phone: Sodium [Moles/Vol] 137 mmol/L 136-145 [facility] Work Phone: [phone] WBC (Bld) [#/Vol] 10.0 10*3/uL 4.4-11.0 [facility] Work Phone: Blood erythrocytes count (nu mber/volume)on 04-13-2022 RBC (Bld) [#/Vol] 4.32 10*6/uL 4.2-5.4 [facility] Work Phone: Blood hemoglobin measurement (mass/volume)on 04-13-2022 Hemoglobin (Bld) [Mass/Vol] 11.5 g/dL 12.0-15.0 [facility] Work Phone: [phone] Blood platelet mean volumeon 04-13-2022 Platelet mean volume (Bld) [Entitic vol] 9.2 fL 6.2-12.0 [facility] Work Phone: [phone] Determination of erythrocyte mean corpuscular volume (MCV)on 04-13-2022 MCV (RBC) [Entitic vol] 84.7 fL 81-99 [facility] Work Phone: [phone] Erythrocyte sedimentation ra abeba 04-13-2022 ESR (Bld) [Velocity] 90 mm/h 0-30 [facility] Work Phone: [phone] Hematocrit Auto (Bld) [Volum e fraction]on 04-13-2022 Hematocrit (Bld) [Volume fraction] 36.6 % 37-47 [facility] Work Phone: Laboratory - Chemistry and C hemistry - challengeon 04-13-2022 CO2 [Moles/Vol] 25.0 mmol/L 21.0-32.0 [facility] Work Phone: [phone] Urea nitrogen/Creatinine [Mass ratio] 18.8 mg/mg 10-20 [facility] Work Phone: [phone] Laboratory - Hematology and Cell countson 04-13-2022 Erythrocyte distribution width (RBC) [Entitic vol] 41.8 fL 35.1-43.9 [facility] Work Phone: [phone] Erythrocyte distribution width (RBC) [Ratio] 13.4 % 11.6-14.6 [facility] Work Phone: [phone] MCH (RBC) [Entitic mass] 26.6 pg 27.0-32.0 [facility] Work Phone: [phone] MCHC Auto (RBC) [Mass/Vol]on 04-13-2022 MCHC (RBC) [Mass/Vol] 31.4 g/dL 32-36 [facility] Work Phone: No Panel Informationon 04-13 Estimated GFR (MDRD) Amer 128 mL/min >60 [facility] Work Phone: [phone] Comment on above: GFR Calc Estimated GFR (MDRD) Non-Af Amer 106 mL/min >60 [facility] Work Phone: [phone] Comment on above: Non- GFR Calc Platelets bldon 04-13-2022 Platelets (Bld) [#/Vol] 609 10*3/uL 150-450 [facility] Work Phone: [phone] Serum or plasma calcium hussein urement (mass/volume)on 04-13-2022 Calcium [Mass/Vol] 9.4 mg/dL 8.5-10.1 [facility] Work Phone: [phone] Serum or plasma creatinine m easurement (mass/volume)on 04-13-2022 Creatinine [Mass/Vol] 0.69 mg/dL 0.55-1.02 [facility] Work Phone: Comment on above: The validity of the calculated GFR & GFRAA in patients over 70 years has not been determined. Clinical correlation is essential. Serum or plasma urea nitroge n measurement (mass/volume)on 04-13-2022 Urea nitrogen [Mass/Vol] 13 mg/dL 7-18 [facility] Work Phone: [phone] Thin prep Papanicolaou smear with manual screeningon 04-13-2022 Thin prep Papanicolaou smear with manual screening 9 5-15 [facility] Work Phone: [phone] Vancomycin troughon 04-13-20 Vancomycin trough [Mass/Vol] 19.3 ug/mL 5.0-15.0 [facility] Work Phone: Comment on above: VANCOMYCIN STANDARED DRUG THERAPY TROUGH LEVEL: 5.0 - 15.0 mg/L VANCOMYCIN HIGH INTENSITY THERAPY TROUGH LEVEL: 15.0 - 20.0 mg/L High Intensity therapy recommended for serious lifethreatening infections include:- Mrfkwezccf-Vluxjrvftuns-Vnuzheevu (Ventilator/Healtcare Associated)-Sepsis PLEASE CONTACT PHARMACY SERVICES (#[id number]) FOR INTERPRETATIONOF RESULTS. Basophil percentageon 2021 Chloride [Moles/Vol] 100 mmol/L 98-107 [facility] Work Phone: Cholesterol [Mass/Vol] 143 mg/dL <200 [facility] Work Phone: Comment on above: <200 mg/dL Desirable 200-240 mg/dL Borderline >240 mg/dL High Risk Glucose [Mass/Vol] 217 mg/dL 74-106 [facility] Work Phone: Comment on above: Glucose result great er than or equal to 200 mg/dLsuggests DIABETES MELLITUS per A.D.A. criteria. Potassium [Moles/Vol] 3.7 mmol/L 3.5-5.1 [facility] Work Phone: Sodium [Moles/Vol] 137 mmol/L 136-145 [facility] Work Phone: Triglyceride [Mass/Vol] 170 mg/dL <199 [facility] Work Phone: Comment on above: The drugs N-Acetylcy steine and Metamizole may falsely depress this assay.Serum Triglycerides Reference Interval Normal <150 mg/dL Borderline high 150 - 199 mg/dL High 200 - 499 mg/dL Very High > or = 500 mg/dL WBC (Bld) [#/Vol] 9.1 10*3/uL 4.4-11.0 [facility] Work Phone: [phone] Blood erythrocytes count (nu mber/volume)on 04-10-2022 RBC (Bld) [#/Vol] 3.85 10*6/uL 4.2-5.4 [facility] Work Phone: [phone] Blood hemoglobin measurement (mass/volume)on 04-10-2022 Hemoglobin (Bld) [Mass/Vol] 10.2 g/dL 12.0-15.0 [facility] Work Phone: [phone] Blood platelet mean volumeon 04-10-2022 Platelet mean volume (Bld) [Entitic vol] 9.1 fL 6.2-12.0 [facility] Work Phone: Determination of erythrocyte mean corpuscular volume (MCV)on 04-10-2022 MCV (RBC) [Entitic vol] 82.6 fL 81-99 [facility] Work Phone: [phone] Erythrocyte sedimentation ra abeba 04-10-2022 ESR (Bld) [Velocity] 58 mm/h 0-30 [facility] Work Phone: Hematocrit Auto (Bld) [Volum e fraction]on 04-10-2022 Hematocrit (Bld) [Volume fraction] 31.8 % 37-47 [facility] Work Phone: Laboratory - Chemistry and C hemistry - challengeon 04-10-2022 CO2 [Moles/Vol] 32.0 mmol/L 21.0-32.0 [facility] Work Phone: [phone] Cobalamin (Vitamin B12) [Mass/Vol] 216 pg/mL 211-911 [facility] Work Phone: [phone] Urea nitrogen/Creatinine [Mass ratio] 22.7 mg/mg 10-20 [facility] Work Phone: [phone] Laboratory - Hematology and Cell countson 04-10-2022 Erythrocyte distribution width (RBC) [Entitic vol] 39.7 fL 35.1-43.9 [facility] Work Phone: [phone] Erythrocyte distribution width (RBC) [Ratio] 13.2 % 11.6-14.6 [facility] Work Phone: [phone] MCH (RBC) [Entitic mass] 26.5 pg 27.0-32.0 [facility] Work Phone: MCHC Auto (RBC) [Mass/Vol]on 04-10-2022 MCHC (RBC) [Mass/Vol] 32.1 g/dL 32-36 [facility] Work Phone: No Panel Informationon 04-10 Estimated GFR (MDRD) Amer 146 mL/min >60 [facility] Work Phone: [phone] Comment on above: GFR Calc Estimated GFR (MDRD) Non-Af Amer 120 mL/min >60 [facility] Work Phone: Comment on above: Non- GFR Calc Vitamin D 25-Hydroxy 18.5 ng/mL [facility] Work Phone: Comment on above: Vitamin D 25(OH) Sta tus Range Deficiency <20 ng/mL (50nmol/L) Insufficiency 20 - 30 ng/mL (50 - 75 nmol/L) Sufficiency 30 - 100 ng/mL (75 - 250 nmol/L) Toxicity >100 ng/mL (>250 nmol/L) Platelets bldon 04-10-2022 Platelets (Bld) [#/Vol] 540 10*3/uL 150-450 [facility] Work Phone: Serum or plasma calcium hussein urement (mass/volume)on 04-10-2022 Calcium [Mass/Vol] 8.9 mg/dL 8.5-10.1 [facility] Work Phone: Serum or plasma cholesterol in HDL measurement (mass/volume)on 04-10-2022 Cholesterol in HDL [Mass/Vol] 23 mg/dL >40 [facility] Work Phone: Comment on above: The drugs N-Acetylcy steine and Metamizole may falsely depress this assay. Reference Range HDL <40 mg/dL Low HDL Cholesterol HDL >or= 60 mg/dL High HDL Cholesterol Serum or plasma cholesterol in VLDL measurement (mass/volume)on 04-10-2022 Cholesterol in VLDL [Mass/Vol] 34 mg/dL 5-40 [facility] Work Phone: Serum or plasma creatinine m easurement (mass/volume)on 04-10-2022 Creatinine [Mass/Vol] 0.62 mg/dL 0.55-1.02 [facility] Work Phone: Comment on above: The validity of the calculated GFR & GFRAA in patients over 70 years has not been determined. Clinical correlation is essential. Serum or plasma low density lipoprotein (LDL) cholesterol measurement (mass/volume)on 04-10-2022 Cholesterol in LDL [Mass/Vol] 86 mg/dL 0-130 [facility] Work Phone: Serum or plasma transthyreti n measurement (mass/volume)on 04-10-2022 Prealbumin [Mass/Vol] 11.5 mg/dL 20.0-40.0 [facility] Work Phone: Serum or plasma urea nitroge n measurement (mass/volume)on 04-10-2022 Urea nitrogen [Mass/Vol] 14 mg/dL 7-18 [facility] Work Phone: Thin prep Papanicolaou smear with manual screeningon 04-10-2022 Thin prep Papanicolaou smear with manual screening 5 5-15 [facility] Work Phone: Absolute lymphocyte counton 04-09-2022 Lymphocytes Auto (Unsp spec) [#/Vol] 2.68 10*3/uL 0.83-4.51 [facility] Work Phone: Basophil percentageon 2021 Basophils/100 WBC (Bld) 0.8 % 0-1 [facility] Work Phone: Chloride [Moles/Vol] 102 mmol/L 98-107 [facility] Work Phone: Eosinophils/100 WBC (Bld) 3.2 % 0-5 [facility] Work Phone: Glucose [Mass/Vol] 190 mg/dL 74-106 [facility] Work Phone: Comment on above: Fasting Glucose resu lt greater than or equal to 126 mg/dL suggests DIABETES MELLITUS per A.D.A. criteria. Neutrophils (Bld) [#/Vol] 3.7 10*3/uL 2.0-7.7 [facility] Work Phone: Neutrophils/100 WBC (Bld) 49.3 % 47-70 [facility] Work Phone: Potassium [Moles/Vol] 3.6 mmol/L 3.5-5.1 [facility] Work Phone: Sodium [Moles/Vol] 138 mmol/L 136-145 [facility] Work Phone: [phone] WBC (Bld) [#/Vol] 7.5 10*3/uL 4.4-11.0 [facility] Work Phone: [phone] Blood erythrocytes count (nu mber/volume)on 04-09-2022 RBC (Bld) [#/Vol] 3.73 10*6/uL 4.2-5.4 [facility] Work Phone: [phone] Blood hemoglobin measurement (mass/volume)on 04-09-2022 Hemoglobin (Bld) [Mass/Vol] 9.8 g/dL 12.0-15.0 [facility] Work Phone: Blood lymphocytes/100 leukoc yteson 04-09-2022 Lymphocytes/100 WBC (Bld) 35.8 % 19-41 [facility] Work Phone: [phone] Blood monocytes/100 leukocyt eson 04-09-2022 Monocytes/100 WBC (Bld) 9.2 % 0-10 [facility] Work Phone: Blood platelet mean volumeon 04-09-2022 Platelet mean volume (Bld) [Entitic vol] 8.8 fL 6.2-12.0 [facility] Work Phone: Determination of erythrocyte mean corpuscular volume (MCV)on 04-09-2022 MCV (RBC) [Entitic vol] 81.8 fL 81-99 [facility] Work Phone: Glucose Glucometer (BldC) [M ass/Vol]on 04-09-2022 Glucose [Mass/Vol] 251 mg/dL 74-106 [facility] Work Phone: Comment on above: MANAGEMENT OF PATIEN T CARE PER NURSING PROTOCOL Glucose [Mass/Vol] 281 mg/dL 74-106 [facility] Work Phone: Comment on above: MANAGEMENT OF PATIEN T CARE PER NURSING PROTOCOL Hematocrit Auto (Bld) [Volum e fraction]on 04-09-2022 Hematocrit (Bld) [Volume fraction] 30.5 % 37-47 [facility] Work Phone: [phone] Laboratory - Chemistry and C hemistry - challengeon 04-09-2022 CO2 [Moles/Vol] 28.0 mmol/L 21.0-32.0 [facility] Work Phone: [phone] Urea nitrogen/Creatinine [Mass ratio] 17.2 mg/mg 10-20 [facility] Work Phone: [phone] Laboratory - Hematology and Cell countson 04-09-2022 Erythrocyte distribution width (RBC) [Entitic vol] 38.9 fL 35.1-43.9 [facility] Work Phone: [phone] Erythrocyte distribution width (RBC) [Ratio] 13.0 % 11.6-14.6 [facility] Work Phone: [phone] Immature granulocytes/100 WBC (Bld) 1.700 % 0.0-0.9 [facility] Work Phone: [phone] Comment on above: IG% - Immature Granu locytes (promyelocytes, myelocytes and metamyelocytes) > 1% indicates that a LEFT SHIFT is Present. MCH (RBC) [Entitic mass] 26.3 pg 27.0-32.0 [facility] Work Phone: [phone] Nucleated RBC/100 WBC (Bld) [Ratio] 0 % 0-5 [facility] Work Phone: [phone] MCHC Auto (RBC) [Mass/Vol]on 04-09-2022 MCHC (RBC) [Mass/Vol] 32.1 g/dL 32-36 [facility] Work Phone: [phone] Panel Informationon 04-09 Estimated Creatinine Clearance Calc 120.32 ml/min [facility] Work Phone: [phone] Estimated GFR (MDRD) Amer 140 mL/min >60 [facility] Work Phone: [phone] Comment on above: GFR Calc Estimated GFR (MDRD) Non-Af Amer 116 mL/min >60 [facility] Work Phone: [phone] Comment on above: Non- GFR Calc Platelets bldon 04-09-2022 Platelets (Bld) [#/Vol] 478 10*3/uL 150-450 [facility] Work Phone: Serum or plasma calcium hussein urement (mass/volume)on 04-09-2022 Calcium [Mass/Vol] 8.7 mg/dL 8.5-10.1 [facility] Work Phone: Serum or plasma creatinine m easurement (mass/volume)on 04-09-2022 Creatinine [Mass/Vol] 0.64 mg/dL 0.55-1.02 [facility] Work Phone: Comment on above: The validity of the calculated GFR & GFRAA in patients over 70 years has not been determined. Clinical correlation is essential. Serum or plasma urea nitroge n measurement (mass/volume)on 04-09-2022 Urea nitrogen [Mass/Vol] 11 mg/dL 7-18 [facility] Work Phone: Thin prep Papanicolaou smear with manual screeningon 04-09-2022 Thin prep Papanicolaou smear with manual screening 8 5-15 [facility] Work Phone: Blood manual differential co mment interpretation (narrative result)on 04-08-2022 Manual differential comment Franky (Bld) [Interp] SCANNED [facility] Work Phone: Blood platelet adequacy dete ction by light microscopyon 04-08-2022 Platelets LM Ql (Bld) ADEQUATE ADEQ [facility] Work Phone: Vancomycin troughon 04-08-20 Vancomycin trough [Mass/Vol] 10.2 ug/mL 5.0-15.0 [facility] Work Phone: Comment on above: VANCOMYCIN STANDARED DRUG THERAPY TROUGH LEVEL: 5.0 - 15.0 mg/L VANCOMYCIN HIGH INTENSITY THERAPY TROUGH LEVEL: 15.0 - 20.0 mg/L High Intensity therapy recommended for serious lifethreatening infections include:- Rxtujywvop-Yqystqahthhk-Qfuhfhkaz (Ventilator/Healtcare Associated)-Sepsis PLEASE CONTACT PHARMACY SERVICES (#[id number]) FOR INTERPRETATIONOF RESULTS. Basophil percentageon 2021 Bilirubin [Mass/Vol] 0.70 mg/dL 0.20-1.00 [facility] Work Phone: Comment on above: For patients on eltr ombopag therapy, use of Dimension Harvest TBIL is not recommended. Protein [Mass/Vol] 7.7 g/dL 6.4-8.2 [facility] Work Phone: Laboratory - Chemistry and C hemistry - challengeon 04-07-2022 ALP [Catalytic activity/Vol] 121 U/L 45-117 [facility] Work Phone: ALT [Catalytic activity/Vol] 9 U/L 13-56 [facility] Work Phone: [phone] Globulin (S) [Mass/Vol] 5.4 g/dL 2.2-4.2 [facility] Work Phone: [phone] Serum or plasma albumin hussein urement (mass/volume)on 04-07-2022 Albumin [Mass/Vol] 2.3 g/dL 3.2-5.0 [facility] Work Phone: Serum or plasma albumin/glob ulin mass ratioon 04-07-2022 Albumin/Globulin [Mass ratio] 0.4 {ratio} 0.9-2.4 [facility] Work Phone: [phone] Thin prep Papanicolaou smear with manual screeningon 04-07-2022 Thin prep Papanicolaou smear with manual screening 6 U/L 15-37 [facility] Work Phone: Absolute lymphocyte counton 04-06-2022 Lymphocytes Auto (Unsp spec) [#/Vol] 2.55 10*3/uL 0.83-4.51 [facility] Work Phone: Basophil percentageon 2021 Basophils/100 WBC (Bld) 0.2 % 0-1 [facility] Work Phone: Chloride [Moles/Vol] 94 mmol/L 98-107 [facility] Work Phone: Eosinophils/100 WBC (Bld) 0.0 % 0-5 [facility] Work Phone: Glucose [Mass/Vol] 396 mg/dL 74-106 [facility] Work Phone: Comment on above: Glucose result great er than or equal to 200 mg/dLsuggests DIABETES MELLITUS per A.D.A. criteria. Neutrophils (Bld) [#/Vol] 18.0 10*3/uL 2.0-7.7 [facility] Work Phone: Neutrophils/100 WBC (Bld) 80.1 % 47-70 [facility] Work Phone: Potassium [Moles/Vol] 3.8 mmol/L 3.5-5.1 [facility]: Sodium [Moles/Vol] 130 mmol/L 136-145 [facility] Work Phone: WBC (Bld) [#/Vol] 22.4 10*3/uL 4.4-11.0 [facility] Work Phone: Beta hCG serum qualon 2021 Beta HCG ( test) Ql Negative [facility] Work Phone: Blood erythrocytes count (nu mber/volume)on 04-06-2022 RBC (Bld) [#/Vol] 4.48 10*6/uL 4.2-5.4 [facility] Work Phone: Blood hemoglobin measurement (mass/volume)on 04-06-2022 Hemoglobin (Bld) [Mass/Vol] 12.0 g/dL 12.0-15.0 [facility] Work Phone: Blood lymphocytes/100 leukoc yteson 04-06-2022 Lymphocytes/100 WBC (Bld) 11.4 % 19-41 [facility] Work Phone: Blood monocytes/100 leukocyt eson 04-06-2022 Monocytes/100 WBC (Bld) 7.1 % 0-10 [facility] Work Phone: Blood platelet mean volumeon 04-06-2022 Platelet mean volume (Bld) [Entitic vol] 9.5 fL 6.2-12.0 [facility] Work Phone: Determination of erythrocyte mean corpuscular volume (MCV)on 04-06-2022 MCV (RBC) [Entitic vol] 82.1 fL 81-99 [facility] Work Phone: [phone] Erythrocyte sedimentation ra abeba 04-06-2022 ESR (Bld) [Velocity] 118 mm/h 0-30 [facility] Work Phone: [phone] Hematocrit Auto (Bld) [Volum e fraction]on 04-06-2022 Hematocrit (Bld) [Volume fraction] 36.8 % 37-47 [facility] Work Phone: [phone] Laboratory - Chemistry and C hemistry - challengeon 04-06-2022 CO2 [Moles/Vol] 25.0 mmol/L 21.0-32.0 [facility] Work Phone: [phone] Urea nitrogen/Creatinine [Mass ratio] 5.9 mg/mg 10-20 [facility] Work Phone: [phone] Laboratory - Hematology and Cell countson 04-06-2022 Erythrocyte distribution width (RBC) [Entitic vol] 39.4 fL 35.1-43.9 [facility] Work Phone: [phone] Erythrocyte distribution width (RBC) [Ratio] 13.2 % 11.6-14.6 [facility] Work Phone: [phone] Immature granulocytes/100 WBC (Bld) 1.200 % 0.0-0.9 [facility] Work Phone: [phone] Comment on above: IG% - Immature Granu locytes (promyelocytes, myelocytes and metamyelocytes) > 1% indicates that a LEFT SHIFT is Present. MCH (RBC) [Entitic mass] 26.8 pg 27.0-32.0 [facility] Work Phone: Nucleated RBC/100 WBC (Bld) [Ratio] 0 % 0-5 [facility] Work Phone: [phone] MCHC Auto (RBC) [Mass/Vol]on 04-06-2022 MCHC (RBC) [Mass/Vol] 32.6 g/dL 32-36 [facility] Work Phone: No Panel Informationon 04-06 Estimated Creatinine Clearance Calc 76.25 ml/min [facility] Work Phone: [phone] Estimated GFR (MDRD) Amer 83 mL/min >60 [facility] Work Phone: Comment on above: GFR Calc Estimated GFR (MDRD) Non-Af Amer 68 mL/min >60 [facility] Work Phone: Comment on above: Non- GFR Calc Platelets bldon 04-06-2022 Platelets (Bld) [#/Vol] 495 10*3/uL 150-450 [facility] Work Phone: Review by pathologiston 03-13 Pathologist review Franky (Unsp spec) [Interp] Zahraa waite [facility] Work Phone: [phone] Pathologist review Franky (Unsp spec) [Interp] Reviewed [facility] Work Phone: Comment on above: Previous reported re sult: Zahraa ravindra Edited by: RGOOD on 04/07/22:1303Neutrophilic leukocytosis with left shift. Thrombocytosis.Clinical correlation necessary.Patrick Castellon M.D. 04/07/22 AMENDED REPORT 04/07/22 1303 PATH REV previously reported as: Zahraa waite Serum or plasma C reactive p rotein measurement (mass/volume)on 04-06-2022 CRP [Mass/Vol] 321.00 mg/L 0.0-3.0 [facility] Work Phone: Comment on above: C-Reactive Protein ( CRP) provides useful information for thediagnosis, therapy and monitoring of inflammatory processesand associated diseases. For the evaluation of Relative Riskfor Cardiovascular Disease, a High Sensitivity CRP (HSCRP)should be ordered. Serum or plasma acetone hussein urement (mass/volume)on 04-06-2022 Acetone [Mass/Vol] Negative NEG [facility] Work Phone: Serum or plasma calcium hussein urement (mass/volume)on 04-06-2022 Calcium [Mass/Vol] 9.7 mg/dL 8.5-10.1 [facility] Work Phone: Serum or plasma creatinine m easurement (mass/volume)on 04-06-2022 Creatinine [Mass/Vol] 1.01 mg/dL 0.55-1.02 [facility] Work Phone: Comment on above: The validity of the calculated GFR & GFRAA in patients over 70 years has not been determined. Clinical correlation is essential. Serum or plasma urea nitroge n measurement (mass/volume)on 04-06-2022 Urea nitrogen [Mass/Vol] 6 mg/dL 7-18 [facility] Work Phone: Thin prep Papanicolaou smear with manual screeningon 04-06-2022 Thin prep Papanicolaou smear with manual screening 11 5-15 [facility] Work Phone: Whole blood hemoglobin A1c/t otal hemoglobin ratio (mass fraction)on 04-06-2022 HbA1c (Bld) [Mass fraction] 10.0 % 3.8-5.6 [facility] Work Phone: Comment on above: Normal < 5.7 % Predi abetic 5.7 - 6.4 % Diabetic >or= 6.5 % Please note range changes. Absolute lymphocyte counton 04-05-2022 Lymphocytes Auto (Unsp spec) [#/Vol] 2.49 10*3/uL 0.83-4.51 [facility] Work Phone: Basophil percentageon 2021 Basophils/100 WBC (Bld) 0.2 % 0-1 [facility] Work Phone: Chloride [Moles/Vol] 93 mmol/L 98-107 [facility] Work Phone: Eosinophils/100 WBC (Bld) 0.2 % 0-5 [facility] Work Phone: Glucose [Mass/Vol] 389 mg/dL 74-106 [facility] Work Phone: Comment on above: Glucose result great er than or equal to 200 mg/dLsuggests DIABETES MELLITUS per A.D.A. criteria. Lactate [Moles/Vol] 2.5 mmol/L 0.4-2.0 [facility] Work Phone: [phone] Comment on above: Critical Result(s) C alled at: 13:33:37 04/05/2022 by: Gayathri Torres. Results read back by same. Neutrophils (Bld) [#/Vol] 13.7 10*3/uL 2.0-7.7 [facility] Work Phone: [phone] Neutrophils/100 WBC (Bld) 78.3 % 47-70 [facility] Work Phone: [phone] Potassium [Moles/Vol] 4.0 mmol/L 3.5-5.1 [facility] Work Phone: [phone] Sodium [Moles/Vol] 132 mmol/L 136-145 [facility] Work Phone: [phone] WBC (Bld) [#/Vol] 17.5 10*3/uL 4.4-11.0 [facility] Work Phone: [phone] Blood erythrocytes count (nu mber/volume)on 04-05-2022 RBC (Bld) [#/Vol] 4.50 10*6/uL 4.2-5.4 [facility] Work Phone: [phone] Blood hemoglobin measurement (mass/volume)on 04-05-2022 Hemoglobin (Bld) [Mass/Vol] 12.7 g/dL 12.0-15.0 [facility] Work Phone: [phone] Blood lymphocytes/100 leukoc yteson 04-05-2022 Lymphocytes/100 WBC (Bld) 14.2 % 19-41 [facility] Work Phone: [phone] Blood monocytes/100 leukocyt eson 04-05-2022 Monocytes/100 WBC (Bld) 6.3 % 0-10 [facility] Work Phone: [phone] Blood platelet mean volumeon 04-05-2022 Platelet mean volume (Bld) [Entitic vol] 9.7 fL 6.2-12.0 [facility] Work Phone: Determination of erythrocyte mean corpuscular volume (MCV)on 04-05-2022 MCV (RBC) [Entitic vol] 82.2 fL 81-99 [facility] Work Phone: [phone] Hematocrit Auto (Bld) [Volum e fraction]on 04-05-2022 Hematocrit (Bld) [Volume fraction] 37.0 % 37-47 [facility] Work Phone: [phone] Laboratory - Chemistry and C hemistry - challengeon 04-05-2022 CO2 [Moles/Vol] 28.0 mmol/L 21.0-32.0 [facility] Work Phone: [phone] Urea nitrogen/Creatinine [Mass ratio] 8.5 mg/mg 10-20 [facility] Work Phone: [phone] Laboratory - Hematology and Cell countson 04-05-2022 Erythrocyte distribution width (RBC) [Entitic vol] 40.1 fL 35.1-43.9 [facility] Work Phone: [phone] Erythrocyte distribution width (RBC) [Ratio] 13.5 % 11.6-14.6 [facility] Work Phone: [phone] Immature granulocytes/100 WBC (Bld) 0.800 % 0.0-0.9 [facility] Work Phone: [phone] Comment on above: IG% - Immature Granu locytes (promyelocytes, myelocytes and metamyelocytes) > 1% indicates that a LEFT SHIFT is Present. MCH (RBC) [Entitic mass] 28.2 pg 27.0-32.0 [facility] Work Phone: [phone] Nucleated RBC/100 WBC (Bld) [Ratio] 0 % 0-5 [facility] Work [phone] MCHC Auto (RBC) [Mass/Vol]on 04-05-2022 MCHC (RBC) [Mass/Vol] 34.3 g/dL 32-36 [facility] Work Phone: [phone] Panel Informationon 04-05 Estimated Creatinine Clearance Calc 92.78 ml/min [facility] Work Phone: [phone] Estimated GFR (MDRD) Amer 104 mL/min >60 [facility] Work Phone: Comment on above: GFR Calc Estimated GFR (MDRD) Non-Af Amer 86 mL/min >60 [facility] Work Phone: Comment on above: Non- GFR Calc Platelets bldon 04-05-2022 Platelets (Bld) [#/Vol] 444 10*3/uL 150-450 [facility] Work Phone: Serum or plasma calcium hussein urement (mass/volume)on 04-05-2022 Calcium [Mass/Vol] 9.2 mg/dL 8.5-10.1 [facility] Work Phone: Serum or plasma creatinine m easurement (mass/volume)on 04-05-2022 Creatinine [Mass/Vol] 0.83 mg/dL 0.55-1.02 [facility] Work Phone: Comment on above: The validity of the calculated GFR & GFRAA in patients over 70 years has not been determined. Clinical correlation is essential. Serum or plasma urea nitroge n measurement (mass/volume)on 04-05-2022 Urea nitrogen [Mass/Vol] 7 mg/dL 7-18 [facility] Work Phone: Thin prep Papanicolaou smear with manual screeningon 04-05-2022 Thin prep Papanicolaou smear with manual screening 11 5-15 [facility] Work Phone: XR CHEST 2V FRONTAL/LATon [facility] XR Chest PA and Lateralon IMPRESSION: Within normal limits. No acute radiographic abnormality. [employer] Worker: PSCB Transcribe Date/Time: Mar 23 2022 1:11P Dictated by : CINDY OBRIEN MD This examination was interpreted and the report reviewed and electronically signed by: CINDY OBRIEN MD on Mar 23 2022 1:14PM [facility] DIVISION OF RADIOLOGY * * *Final Report* [...] soft tissues: Unremarkable. DIVISION OF RADIOLOGY Provider, [facility] - 03/23/2022 * * *Final [...] Within normal limits. No acute radiographic abnormality. [employer] Worker: OLGA Transcribe Date/Time: Mar 23 2022 1:11P Dictated by : CINDY OBRIEN MD This examination was interpreted and the report reviewed and electronically signed by: CINDY OBRIEN MD on Mar 23 2022 1:14PM EST [facility] Radiology Study observation (narrative) Melissa gupta [facility] XR Chest PA and LateralOrder ed By: [facility] Provider on 03-23-2022 [facility] Absolute lymphocyte counton 02-01-2022 Lymphocytes Auto (Unsp spec) [#/Vol] 3.62 10*3/uL 0.83-4.51 [facility] Work Phone: Basophil percentageon 2021 Basophil percentage 0-5 SEEN /hpf 0-5 [facility] Work Phone: Basophils/100 WBC (Bld) 0.3 % 0-1 [facility] Work Phone: [phone] Bilirubin [Mass/Vol] 0.40 mg/dL 0.20-1.00 [facility] Work Phone: [phone] Comment on above: For patients on eltr ombopag therapy, use of Dimension Harvest TBIL is not recommended. Chloride [Moles/Vol] 98 mmol/L 98-107 [facility] [facility] Work Phone: Eosinophils/100 WBC (Bld) 0.5 % 0-5 [facility] Work Phone: [phone] Glucose [Mass/Vol] 334 mg/dL 74-106 [facility] Work Phone: [phone] Comment on above: Glucose result great er than or equal to 200 mg/dLsuggests DIABETES MELLITUS per A.D.A. criteria. Lactate [Moles/Vol] 2.5 mmol/L 0.4-2.0 [facility] Work Phone: [phone] Comment on above: Critical Result(s) C alled at: 13:53:33 02/01/2022 by: Gayathri Whiting to [place]. Results read back by same. Neutrophils (Bld) [#/Vol] 5.5 10*3/uL 2.0-7.7 [facility] Work Phone: [phone] Neutrophils/100 WBC (Bld) 54.6 % 47-70 [facility] Work Phone: [phone] Potassium [Moles/Vol] 3.2 mmol/L 3.5-5.1 [facility] Work Phone: Protein [Mass/Vol] 7.2 g/dL 6.4-8.2 [facility] Work Phone: Sodium [Moles/Vol] 131 mmol/L 136-145 [facility] Work Phone: [phone] WBC (Bld) [#/Vol] 10.1 10*3/uL 4.4-11.0 [facility] Work Phone: Beta hCG serum qualon 2021 Beta HCG ( test) Ql Negative [facility] Work Phone: Bilirubin Test strip Ql (U)o n 02-01-2022 Bilirubin Ql (U) Negative Negative [facility] Work Phone: Blood erythrocytes count (nu mber/volume)on 02-01-2022 RBC (Bld) [#/Vol] 4.45 10*6/uL 4.2-5.4 [facility] Work Phone: Blood hemoglobin measurement (mass/volume)on 02-01-2022 Hemoglobin (Bld) [Mass/Vol] 11.7 g/dL 12.0-15.0 [facility] Work Phone: Blood lymphocytes/100 leukoc yteson 02-01-2022 Lymphocytes/100 WBC (Bld) 35.9 % 19-41 [facility] Work Phone: Blood monocytes/100 leukocyt eson 02-01-2022 Monocytes/100 WBC (Bld) 7.8 % 0-10 [facility] Work Phone: Blood platelet mean volumeon 02-01-2022 Platelet mean volume (Bld) [Entitic vol] 9.7 fL 6.2-12.0 [facility] Work Phone: Determination of erythrocyte mean corpuscular volume (MCV)on 02-01-2022 MCV (RBC) [Entitic vol] 80.2 fL 81-99 [facility] Work Phone: Hematocrit Auto (Bld) [Volum e fraction]on 02-01-2022 Hematocrit (Bld) [Volume fraction] 35.7 % 37-47 [facility] Work Phone: Ketones Test strip Ql (U)on 02-01-2022 Ketones Ql (U) Negative Negative [facility] Work Phone: Laboratory - Chemistry and C hemistry - challengeon 02-01-2022 ALP [Catalytic activity/Vol] 79 U/L 45-117 [facility] Work Phone: [phone] ALT [Catalytic activity/Vol] 12 U/L 13-56 [facility] Work Phone: [phone] CO2 [Moles/Vol] 24.0 mmol/L 21.0-32.0 [facility] Work Phone: [phone] Globulin (S) [Mass/Vol] 4.5 g/dL 2.2-4.2 [facility] Work Phone: [phone] Lipase [Catalytic activity/Vol] 154 U/L 73-393 [facility] Work Phone: [phone] Urea nitrogen/Creatinine [Mass ratio] 6.9 mg/mg 10-20 [facility] Work Phone: [phone] Laboratory - Hematology and Cell countson 02-01-2022 Erythrocyte distribution width (RBC) [Entitic vol] 39.5 fL 35.1-43.9 [facility] Work Phone: [phone] Erythrocyte distribution width (RBC) [Ratio] 13.7 % 11.6-14.6 [facility] Work Phone: [phone] Immature granulocytes/100 WBC (Bld) 0.900 % 0.0-0.9 [facility] Work Phone: [phone] Comment on above: IG% - Immature Granu locytes (promyelocytes, myelocytes and metamyelocytes) > 1% indicates that a LEFT SHIFT is Present. MCH (RBC) [Entitic mass] 26.3 pg 27.0-32.0 [facility] Work Phone: [phone] Nucleated RBC/100 WBC (Bld) [Ratio] 0 % 0-5 [facility] Work Phone: [phone] MCHC Auto (RBC) [Mass/Vol]on 02-01-2022 MCHC (RBC) [Mass/Vol] 32.8 g/dL 32-36 [facility] Work Phone: [phone] Mucus LM Ql (Urine sed)on Mucus Ql (Urine sed) 0 SEEN /hpf [facility] Work Phone: [phone] Nitrite Test strip Ql (U)on 02-01-2022 Nitrite Ql (U) Negative Negative [facility] Work Phone: No Panel Informationon 02-01 Estimated Creatinine Clearance Calc 75.50 ml/min [facility] Work Phone: [phone] Estimated GFR (MDRD) Amer 82 mL/min >60 [facility] Work Phone: Comment on above: GFR Calc Estimated GFR (MDRD) Non-Af Amer 68 mL/min >60 [facility] Work Phone: Comment on above: Non- GFR Calc Platelets bldon 02-01-2022 Platelets (Bld) [#/Vol] 368 10*3/uL 150-450 [facility] Work Phone: Protein Test strip Ql (U)on 02-01-2022 Protein Ql (U) 15 mg/dl Negative [facility] Work Phone: [phone] Serum or plasma albumin hussein urement (mass/volume)on 02-01-2022 Albumin [Mass/Vol] 2.7 g/dL 3.2-5.0 [facility] Work Phone: Serum or plasma albumin/glob ulin mass ratioon 02-01-2022 Albumin/Globulin [Mass ratio] 0.6 {ratio} 0.9-2.4 [facility] Work Phone: Serum or plasma calcium hussein urement (mass/volume)on 02-01-2022 Calcium [Mass/Vol] 8.7 mg/dL 8.5-10.1 [facility] Work Phone: [phone] Serum or plasma creatinine m easurement (mass/volume)on 02-01-2022 Creatinine [Mass/Vol] 1.02 mg/dL 0.55-1.02 [facility] Work Phone: Comment on above: The validity of the calculated GFR & GFRAA in patients over 70 years has not been determined. Clinical correlation is essential. Serum or plasma urea nitroge n measurement (mass/volume)on 02-01-2022 Urea nitrogen [Mass/Vol] 7 mg/dL 7-18 [facility] Work Phone: Squamous epithelial cells de tection in urine sediment by light microscopyon 02-01-2022 Epithelial cells.squamous LM Ql (Urine sed) 0-5 SEEN /hpf 5-10 [facility] Work Phone: Thin prep Papanicolaou smear with manual screeningon 02-01-2022 Thin prep Papanicolaou smear with manual screening 8 U/L 15-37 [facility] Work Phone: Thin prep Papanicolaou smear with manual screening 9 5-15 [facility] Work Phone: Urine blood detectionon 01-10 RBC Ql (U) 50 /ul Negative [facility] Work Phone: RBC Ql (U) 0-5 SEEN /hpf 0-5 [facility] Work Phone: Urine clarityon 02-01-2022 Clarity (U) Clear Clear [facility] Work Phone: Urine color determinationon 02-01-2022 Color (U) Yellow Yellow [facility] Work Phone: Urine glucose detectionon Glucose Ql (U) 1000 mg/dl Normal [facility] Work Phone: Urine leukocyte esterase det ection by dipstickon 02-01-2022 Leukocyte esterase Test strip Ql (U) 25 /ul Negative [facility] Work Phone: Urine pHon 02-01-2022 pH (U) 5.0 [pH] 5.0 - 8.0 [facility] Work Phone: Urine sediment bacteria coun t by microscopy (number/high power field)on 02-01-2022 Bacteria LM.HPF (Urine sed) [#/Area] 0 /[HPF] None Seen [facility] Work Phone: Urine specific gravity measu rementon 02-01-2022 Specific gravity (U) [Rel density] 1.020 1.002-1.030 [facility] Work Phone: Urobilinogen Auto test strip Ql (U)on 02-01-2022 Urobilinogen Ql (U) Normal mg/dl [facility]: [phone] Absolute lymphocyte counton 01-30-2022 Lymphocytes Auto (Unsp spec) [#/Vol] 5.16 10*3/uL 0.83-4.51 [facility] Work Phone: [phone] Albumin Elph [Mass/Vol]on Albumin [Mass/Vol] 3.6 g/dL 2.9-4.4 [facility] Work Phone: Atypical perinuclear antineu trophil cytoplasmic antibodies measurementon 01-30-2022 Neutrophil cytoplasmic Ab.perinuclear.atypical IF (S) [Titer] <1:20 titer Neg:<1:20 [facility] Work Phone: Comment on above: The atypical pANCA p attern has been observed in asignificant percentage of patients with ulcerative colitis,primary sclerosing cholangitis and autoimmune hepatitis.Performed at: [facility] [address] [id number] Director: Wade Lazo PhD, Phone: [phone] at: [facility] [address] [id number] Director: Philip Robles MD, Phone: [phone] Basophil percentageon 2021 Amylase [Catalytic activity/Vol] 19 U/L 25-115 [facility] Work Phone: [phone] Basophil percentage < 0.2 AI 0.0-0.9 [facility] Work [facility]: [phone] Basophils/100 WBC (Bld) 0.3 % 0-1 [facility] Work Phone: [phone] Eosinophils/100 WBC (Bld) 0.5 % 0-5 [facility] Work Phone: [phone] Neutrophils (Bld) [#/Vol] 8.8 10*3/uL 2.0-7.7 [facility] Work Phone: Neutrophils/100 WBC (Bld) 57.5 % 47-70 [facility] Work Phone: WBC (Bld) [#/Vol] 15.3 10*3/uL 4.4-11.0 [facility] Work Phone: Blood erythrocytes count (nu mber/volume)on 01-30-2022 RBC (Bld) [#/Vol] 5.33 10*6/uL 4.2-5.4 [facility] Work Phone: Blood hemoglobin measurement (mass/volume)on 01-30-2022 Hemoglobin (Bld) [Mass/Vol] 13.9 g/dL 12.0-15.0 [facility] Work Phone: Blood lymphocytes/100 leukoc yteson 01-30-2022 Lymphocytes/100 WBC (Bld) 33.7 % 19-41 [facility] Work Phone: Blood manual differential co mment interpretation (narrative result)on 01-30-2022 Manual differential comment Franky (Bld) [Interp] SCANNED [facility] Work Phone: Comment on above: LYMPHOCYTOSIS NOTED Blood monocytes/100 leukocyt eson 01-30-2022 Monocytes/100 WBC (Bld) 7.2 % 0-10 [facility] Work Phone: Blood platelet mean volumeon 01-30-2022 Platelet mean volume (Bld) [Entitic vol] 9.5 fL 6.2-12.0 [facility] Work Phone: Determination of erythrocyte mean corpuscular volume (MCV)on 01-30-2022 MCV (RBC) [Entitic vol] 80.3 fL 81-99 [facility] Work Phone: Erythrocyte sedimentation ra abeba 01-30-2022 ESR (Bld) [Velocity] 81 mm/h 0-30 [facility] Work Phone: Hematocrit Auto (Bld) [Volum e fraction]on 01-30-2022 Hematocrit (Bld) [Volume fraction] 42.8 % 37-47 [facility] Work Phone: Interpretation of serum or p lasma protein pattern by immunofixation (narrative resulton 01-30-2022 Protein Fractions Immunofixation Franky [Interp] See comment [facility] Work Phone: [phone] Comment on above: NOT OBSERVED Laboratory - Chemistry and C hemistry - challengeon 01-30-2022 Cobalamin (Vitamin B12) [Mass/Vol] 318 pg/mL 211-911 [facility] Work Phone: [phone] Lipase [Catalytic activity/Vol] 150 U/L 73-393 [facility] Work Phone: [phone] Laboratory - Hematology and Cell countson 01-30-2022 Erythrocyte distribution width (RBC) [Entitic vol] 40.0 fL 35.1-43.9 [facility] Work Phone: [phone] Erythrocyte distribution width (RBC) [Ratio] 14.0 % 11.6-14.6 [facility] Work Phone: [phone] Immature granulocytes/100 WBC (Bld) 0.800 % 0.0-0.9 [facility] Work Phone: [phone] Comment on above: IG% - Immature Granu locytes (promyelocytes, myelocytes and metamyelocytes) > 1% indicates that a LEFT SHIFT is Present. MCH (RBC) [Entitic mass] 26.1 pg 27.0-32.0 [facility] Work Phone: [phone] Nucleated RBC/100 WBC (Bld) [Ratio] 0 % 0-5 [facility] Work Phone: [phone] MCHC Auto (RBC) [Mass/Vol]on 01-30-2022 MCHC (RBC) [Mass/Vol] 32.5 g/dL 32-36 [facility] Work Phone: [phone] Panel Informationon 01-30 Addendum Document Comment . [facility] Work Phone: [phone] Comment on above: Protein electrophore sis scan will follow via computer,mail, or project administrative assistant delivery. Centromere B Antibody <0.2 AI 0.0-0.9 [facility] Work Phone: [phone] Endomysial IgA Antibody Negative Negative [facility] Work Phone: Immunoglobulin E 119 IU/mL 6-495 [facility] Work Phone: [phone] PROFESSOR OF PSYCHOLOGY Antibody <0.2 AI 0.0-0.9 [facility] Work Phone: [phone] Thyroid Stimulating Hormone (TSH) 2.21 uIU/mL 0.358-3.74 [facility] Work Phone: Platelets bldon 01-30-2022 Platelets (Bld) [#/Vol] 484 10*3/uL 150-450 [facility] Work Phone: [phone] Serum DNA double strand anti body assay (units/volume)on 01-30-2022 DNA double strand Ab Qn (S) [IU]/mL 0-9 [facility] Work Phone: Comment on above: Negative <5 Equivoca l 5 - 9 Positive >9 Serum Neva-1 antibody assay (u nits/volume)on 01-30-2022 Neva-1 extractable nuclear Ab Qn (S) <0.2 AI 0.0-0.9 [facility] Work Phone: Serum Scl-70 extractable nuc lear antibody assay (units/volume)on 01-30-2022 SCL-70 extractable nuclear Ab Qn (S) <0.2 AI 0.0-0.9 [facility] Work Phone: Serum Jang extractable nucl ear antibody detectionon 01-30-2022 Jang extractable nuclear Ab Ql (S) <0.2 AI 0.0-0.9 [facility] Work Phone: Serum ndohr-5-wphhptfb measu rement by electrophoresison 01-30-2022 Alpha 1 globulin Elph [Mass/Vol] 0.2 g/dL 0.0-0.4 [facility] Work Phone: [phone] Alpha 1 globulin Elph [Mass/Vol] 1.6 g/dL 0.4-1.0 [facility] Work Phone: [phone] Serum classic neutrophil cyt oplasmic antibody assay (units/volume)on 01-30-2022 Neutrophil cytoplasmic Ab.classic Qn (S) 1:80 titer Neg:<1:20 [facility] Work Phone: Serum globulin measurement ( mass/volume)on 01-30-2022 Globulin (S) [Mass/Vol] 4.8 g/dL 2.2-3.9 [facility] Work Phone: Serum or plasma C reactive p rotein measurement (mass/volume)on 01-30-2022 CRP [Mass/Vol] 53.10 mg/L 0.0-3.0 [facility] Work Phone: Comment on above: C-Reactive Protein ( CRP) provides useful information for thediagnosis, therapy and monitoring of inflammatory processesand associated diseases. For the evaluation of Relative Riskfor Cardiovascular Disease, a High Sensitivity CRP (HSCRP)should be ordered. Serum or plasma IgA measurem ent (mass/volume)on 01-30-2022 IgA [Mass/Vol] 478 mg/dL 87-352 [facility] Work Phone: Serum or plasma IgG measurem ent (mass/volume)on 01-30-2022 IgG [Mass/Vol] 1630 mg/dL [phone] [facility] Work Phone: Serum or plasma IgM measurem ent (mass/volume)on 01-30-2022 IgM [Mass/Vol] 294 mg/dL 26-217 [facility] Work Phone: Serum or plasma beta globuli n measurement by electrophoresis (mass/volume)on 01-30-2022 Beta globulin Elph [Mass/Vol] 1.0 g/dL 0.7-1.3 [facility] Work Phone: Serum or plasma folate measu rement (mass/volume)on 01-30-2022 Folate [Mass/Vol] 13.50 ng/mL 3.1-55.4 [facility] Work Phone: Serum or plasma gamma globul in measurement by electrophoresis (mass/volume)on 01-30-2022 Gamma globulin Elph [Mass/Vol] 1.9 g/dL 0.4-1.8 [facility] Work Phone: Serum or plasma immunoelectr ophoresis interpretation (nominal result)on 01-30-2022 Interpretation IEP [Interp] Comment . [facility] Work Phone: Comment on above: No monoclonality det ected. Serum perinuclear neutrophil cytoplasmic antibody titer by immunofluorescenceon 01-30-2022 Neutrophil cytoplasmic Ab.perinuclear IF (S) [Titer] <1:20 titer Neg:<1:20 [facility] Work Phone: Comment on above: The [...] only by EIA. Ref. AM J Clin [id number];111:[id number]. Serum tissue transglutaminas e IgA antibody assay (units/volume)on 01-30-2022 tTG IgA Qn (S) <2 U/mL 0-3 [facility] Work Phone: Comment on above: Negative 0 - 3 Weak Positive 4 - 10 Positive >10 Tissue Transglutaminase (tTG) has been identified as the endomysial antigen. Studies have demonstr- ated that endomysial IgA antibodies have over 99% specificity for gluten sensitive enteropathy. Thin prep Papanicolaou smear with manual screeningon 01-30-2022 Thin prep Papanicolaou smear with manual screening 153 U/L 84-246 [facility] Work Phone: Thin prep Papanicolaou smear with manual screening 0.8 0.7-1.7 [facility] Work Phone: Total protein bloodon 2021 Protein [Mass/Vol] 8.4 g/dL 6.0-8.5 [facility] Work Phone: [phone] Whole blood hemoglobin A1c/t otal hemoglobin ratio (mass fraction)on 01-30-2022 HbA1c (Bld) [Mass fraction] 11.4 % 3.8-5.6 [facility] Work Phone: Comment on above: Normal < 5.7 % Predi abetic 5.7 - 6.4 % Diabetic >or= 6.5 % Please note range changes. Absolute lymphocyte counton 01-26-2022 Lymphocytes Auto (Unsp spec) [#/Vol] 4.70 10*3/uL 0.83-4.51 [facility] Work Phone: Basophil percentageon 2021 Basophils/100 WBC (Bld) 0.4 % 0-1 [facility] Work Phone: Bilirubin [Mass/Vol] 0.40 mg/dL 0.20-1.00 [facility] Work Phone: Comment on above: For patients on eltr ombopag therapy, use of Dimension [employer] TBIL is not recommended. Chloride [Moles/Vol] 101 mmol/L 98-107 [facility] Work Phone: Eosinophils/100 WBC (Bld) 0.2 % 0-5 [facility] Work Phone: Glucose [Mass/Vol] 320 mg/dL 74-106 [facility] Work Phone: Comment on above: Glucose result great er than or equal to 200 mg/dLsuggests DIABETES MELLITUS per A.D.A. criteria. Neutrophils (Bld) [#/Vol] 5.6 10*3/uL 2.0-7.7 [facility] Work Phone: Neutrophils/100 WBC (Bld) 50.6 % 47-70 [facility] Work Phone: Potassium [Moles/Vol] 3.6 mmol/L 3.5-5.1 [facility] Work Phone: Protein [Mass/Vol] 8.5 g/dL 6.4-8.2 [facility] Work Phone: Sodium [Moles/Vol] 136 mmol/L 136-145 [facility] Work Phone: WBC (Bld) [#/Vol] 11.1 10*3/uL 4.4-11.0 [facility] Work Phone: [phone] Blood erythrocytes count (nu mber/volume)on 01-26-2022 RBC (Bld) [#/Vol] 4.99 10*6/uL 4.2-5.4 [facility] Work Phone: [phone] Blood hemoglobin measurement (mass/volume)on 01-26-2022 Hemoglobin (Bld) [Mass/Vol] 12.9 g/dL 12.0-15.0 [facility] Work Phone: [phone] Blood lymphocytes/100 leukoc yteson 01-26-2022 Lymphocytes/100 WBC (Bld) 42.2 % 19-41 [facility] Work Phone: [phone] Blood monocytes/100 leukocyt eson 01-26-2022 Monocytes/100 WBC (Bld) 5.9 % 0-10 [facility] Work Phone: [phone] Blood platelet mean volumeon 01-26-2022 Platelet mean volume (Bld) [Entitic vol] 9.5 fL 6.2-12.0 [facility] Work Phone: [phone] Determination of erythrocyte mean corpuscular volume (MCV)on 01-26-2022 MCV (RBC) [Entitic vol] 77.8 fL 81-99 [facility] Work Phone: [phone] Hematocrit Auto (Bld) [Volum e fraction]on 01-26-2022 Hematocrit (Bld) [Volume fraction] 38.8 % 37-47 [facility] Work Phone: [phone] Laboratory - Chemistry and C hemistry - challengeon 01-26-2022 ALP [Catalytic activity/Vol] 85 U/L 45-117 [facility] Work Phone: [phone] ALT [Catalytic activity/Vol] 14 U/L 13-56 [facility] Work Phone: [phone] CO2 [Moles/Vol] 26.0 mmol/L 21.0-32.0 [facility] Work Phone: Globulin (S) [Mass/Vol] 5.3 g/dL 2.2-4.2 [facility] Work Phone: [phone] Lipase [Catalytic activity/Vol] 179 U/L 73-393 [facility] Work Phone: [phone] Urea nitrogen/Creatinine [Mass ratio] 13.1 mg/mg 10-20 [facility] Work Phone: [phone] Laboratory - Hematology and Cell countson 01-26-2022 Erythrocyte distribution width (RBC) [Entitic vol] 37.9 fL 35.1-43.9 [facility] Work Phone: [phone] Erythrocyte distribution width (RBC) [Ratio] 13.8 % 11.6-14.6 [facility] Work Phone: [phone] Immature granulocytes/100 WBC (Bld) 0.700 % 0.0-0.9 [facility] Work Phone: [phone] Comment on above: IG% - Immature Granu locytes (promyelocytes, myelocytes and metamyelocytes) > 1% indicates that a LEFT SHIFT is Present. MCH (RBC) [Entitic mass] 25.9 pg 27.0-32.0 [facility] Work Phone: Nucleated RBC/100 WBC (Bld) [Ratio] 0 % 0-5 [facility] Work Phone: [phone] MCHC Auto (RBC) [Mass/Vol]on 01-26-2022 MCHC (RBC) [Mass/Vol] 33.2 g/dL 32-36 [facility] Work Phone: No Panel Informationon 01-26 Estimated Creatinine Clearance Calc 84.46 ml/min [facility] Work Phone: [phone] Estimated GFR (MDRD) Amer 92 mL/min >60 [facility] Work Phone: [phone] Comment on above: GFR Calc Estimated GFR (MDRD) Non-Af Amer 76 mL/min >60 [facility] Work Phone: [phone] Comment on above: Non- GFR Calc Platelets bldon 01-26-2022 Platelets (Bld) [#/Vol] 474 10*3/uL 150-450 [facility] Work Phone: [phone] Serum or plasma albumin hussein urement (mass/volume)on 01-26-2022 Albumin [Mass/Vol] 3.2 g/dL 3.2-5.0 [facility] Work Phone: [phone] Serum or plasma albumin/glob ulin mass ratioon 01-26-2022 Albumin/Globulin [Mass ratio] 0.6 {ratio} 0.9-2.4 [facility] Work Phone: [phone] Serum or plasma calcium hussein urement (mass/volume)on 01-26-2022 Calcium [Mass/Vol] 9.3 mg/dL 8.5-10.1 [facility] Work Phone: Serum or plasma creatinine m easurement (mass/volume)on 01-26-2022 Creatinine [Mass/Vol] 0.92 mg/dL 0.55-1.02 [facility] Work Phone: Comment on above: The validity of the calculated GFR & GFRAA in patients over 70 years has not been determined. Clinical correlation is essential. Serum or plasma urea nitroge n measurement (mass/volume)on 01-26-2022 Urea nitrogen [Mass/Vol] 12 mg/dL 01-26 [facility] Work Phone: Thin prep Papanicolaou smear with manual screeningon 01-26-2022 Thin prep Papanicolaou smear with manual screening 7 U/L 15-37 [facility] Work Phone: Thin prep Papanicolaou smear with manual screening 9 5-15 [facility] Work Phone: Absolute lymphocyte counton 01-23-2022 Lymphocytes Auto (Unsp spec) [#/Vol] 3.74 10*3/uL 0.83-4.51 [facility] Work Phone: Basophil percentageon 2021 Basophils/100 WBC (Bld) 0.4 % 0-1 [facility] Work Phone: Chloride [Moles/Vol] 97 mmol/L 98-107 [facility] Work [facility]: Eosinophils/100 WBC (Bld) 0.4 % 0-5 [facility] Work Phone: Glucose [Mass/Vol] 362 mg/dL 74-106 [facility] Work Phone: Comment on above: Glucose result great er than or equal to 200 mg/dLsuggests DIABETES MELLITUS per A.D.A. criteria. Neutrophils (Bld) [#/Vol] 5.3 10*3/uL 2.0-7.7 [facility] Work Phone: Neutrophils/100 WBC (Bld) 53.8 % 47-70 [facility] Work Phone: Potassium [Moles/Vol] 4.0 mmol/L 3.5-5.1 [facility] Work Phone: Sodium [Moles/Vol] 131 mmol/L 136-145 [facility] Work Phone: WBC (Bld) [#/Vol] 9.8 10*3/uL 4.4-11.0 [facility] Work Phone: Blood erythrocytes count (nu mber/volume)on 01-23-2022 RBC (Bld) [#/Vol] 5.18 10*6/uL 4.2-5.4 [facility]: Blood hemoglobin measurement (mass/volume)on 01-23-2022 Hemoglobin (Bld) [Mass/Vol] 13.4 g/dL 12.0-15.0 [facility] Work Phone: Blood lymphocytes/100 leukoc yteson 01-23-2022 Lymphocytes/100 WBC (Bld) 38.3 % 19-41 [facility] Work Phone: Blood monocytes/100 leukocyt eson 01-23-2022 Monocytes/100 WBC (Bld) 6.3 % 0-10 [facility] Work Phone: Blood platelet mean volumeon 01-23-2022 Platelet mean volume (Bld) [Entitic vol] 9.2 fL 6.2-12.0 [facility] Work Phone: [phone] Determination of erythrocyte mean corpuscular volume (MCV)on 01-23-2022 MCV (RBC) [Entitic vol] 78.2 fL 81-99 [facility] Work Phone: [phone] Hematocrit Auto (Bld) [Volum e fraction]on 01-23-2022 Hematocrit (Bld) [Volume fraction] 40.5 % 37-47 [facility] Work Phone: [phone] Laboratory - Chemistry and C hemistry - challengeon 01-23-2022 CO2 [Moles/Vol] 24.0 mmol/L 21.0-32.0 [facility] Work Phone: [phone] Urea nitrogen/Creatinine [Mass ratio] 17.3 mg/mg 10-20 [facility] Work Phone: [phone] Laboratory - Hematology and Cell countson 01-23-2022 Erythrocyte distribution width (RBC) [Entitic vol] 38.2 fL 35.1-43.9 [facility] Work Phone: [phone] Erythrocyte distribution width (RBC) [Ratio] 13.5 % 11.6-14.6 [facility] Work Phone: [phone] Immature granulocytes/100 WBC (Bld) 0.800 % 0.0-0.9 [facility] Work Phone: [phone] Comment on above: IG% - Immature Granu locytes (promyelocytes, myelocytes and metamyelocytes) > 1% indicates that a LEFT SHIFT is Present. MCH (RBC) [Entitic mass] 25.9 pg 27.0-32.0 [facility] Work Phone: [phone] Nucleated RBC/100 WBC (Bld) [Ratio] 0 % 0-5 [facility] Work Phone: [phone] MCHC Auto (RBC) [Mass/Vol]on 01-23-2022 MCHC (RBC) [Mass/Vol] 33.1 g/dL 32-36 [facility]: No Panel Informationon 01-23 Estimated Creatinine Clearance Calc 79.29 ml/min [facility] Work Phone: Estimated GFR (MDRD) Amer 85 mL/min >60 [facility] Work Phone: Comment on above: GFR Calc Estimated GFR (MDRD) Non-Af Amer 70 mL/min >60 [facility] Work Phone: Comment on above: Non- GFR Calc Platelets bldon 01-23-2022 Platelets (Bld) [#/Vol] 470 10*3/uL 150-450 [facility] Work Phone: Serum or plasma calcium hussein urement (mass/volume)on 01-23-2022 Calcium [Mass/Vol] 9.6 mg/dL 8.5-10.1 [facility] Work Phone: Serum or plasma creatinine m easurement (mass/volume)on 01-23-2022 Creatinine [Mass/Vol] 0.98 mg/dL 0.55-1.02 [facility] Work Phone: Comment on above: The validity of the calculated GFR & GFRAA in patients over 70 years has not been determined. Clinical correlation is essential. Serum or plasma urea nitroge n measurement (mass/volume)on 01-23-2022 Urea nitrogen [Mass/Vol] 17 mg/dL 7-18 [facility] Work Phone: Thin prep Papanicolaou smear with manual screeningon 01-23-2022 Thin prep Papanicolaou smear with manual screening 10 5-15 [facility] Work Phone: Glucose Glucometer (BldC) [M ass/Vol]on 01-22-2022 Glucose [Mass/Vol] 320 mg/dL 74-106 [facility] Work Phone: Comment on above: MANAGEMENT OF PATIEN T CARE PER NURSING PROTOCOL Glucose Glucometer (BldC) [M ass/Vol]on 01-16-2022 Glucose [Mass/Vol] 440 mg/dL 74-106 [facility] Work Phone: Comment on above: MANAGEMENT OF PATIEN T CARE PER NURSING PROTOCOL Absolute lymphocyte counton 11-16-2021 Lymphocytes Auto (Unsp spec) [#/Vol] 2.57 10*3/uL 0.83-4.51 [facility] Work Phone: Basophil percentageon 2021 Basophils/100 WBC (Bld) 0.4 % 0-1 [facility] Work Phone: Bilirubin [Mass/Vol] 0.50 mg/dL 0.20-1.00 [facility] Work Phone: Comment on above: For patients on eltr ombopag therapy, use of Dimension Harvest TBIL is not recommended. Chloride [Moles/Vol] 99 mmol/L 98-107 [facility] Work Phone: Eosinophils/100 WBC (Bld) 0.6 % 0-5 [facility] Work Phone: Glucose [Mass/Vol] 331 mg/dL 74-106 [facility] Work Phone: Comment on above: Glucose result great er than or equal to 200 mg/dLsuggests DIABETES MELLITUS per A.D.A. criteria. Neutrophils (Bld) [#/Vol] 7.4 10*3/uL 2.0-7.7 [facility] Work Phone: Neutrophils/100 WBC (Bld) 68.0 % 47-70 [facility] Work Phone: Potassium [Moles/Vol] 4.1 mmol/L 3.5-5.1 [facility] Work Phone: Protein [Mass/Vol] 8.7 g/dL 6.4-8.2 [facility] Work Phone: Sodium [Moles/Vol] 133 mmol/L 136-145 [facility] Work Phone: WBC (Bld) [#/Vol] 10.9 10*3/uL 4.4-11.0 [facility] Work Phone: [phone] Blood erythrocytes count (nu mber/volume)on 11-16-2021 RBC (Bld) [#/Vol] 4.48 10*6/uL 4.2-5.4 [facility]: [phone] Blood hemoglobin measurement (mass/volume)on 11-16-2021 Hemoglobin (Bld) [Mass/Vol] 11.9 g/dL 12.0-15.0 [facility] Work Phone: [phone] Blood lymphocytes/100 leukoc yteson 11-16-2021 Lymphocytes/100 WBC (Bld) 23.5 % 19-41 [facility] Work Phone: [phone] Blood monocytes/100 leukocyt eson 11-16-2021 Monocytes/100 WBC (Bld) 6.7 % 0-10 [facility] Work Phone: [phone] Blood platelet mean volumeon 11-16-2021 Platelet mean volume (Bld) [Entitic vol] 9.2 fL 6.2-12.0 [facility] Work Phone: [phone] Determination of erythrocyte mean corpuscular volume (MCV)on 11-16-2021 MCV (RBC) [Entitic vol] 81.9 fL 81-99 [facility] Work Phone: [phone] Hematocrit Auto (Bld) [Volum e fraction]on 11-16-2021 Hematocrit (Bld) [Volume fraction] 36.7 % 37-47 [facility] Work Phone: [phone] Laboratory - Chemistry and C hemistry - challengeon 11-16-2021 ALP [Catalytic activity/Vol] 130 U/L 45-117 [facility] Work Phone: [phone] ALT [Catalytic activity/Vol] 12 U/L 13-56 [facility] Work Phone: [phone] CO2 [Moles/Vol] 27.0 mmol/L 21.0-32.0 [facility] Work Phone: [phone] Globulin (S) [Mass/Vol] 6.0 g/dL 2.2-4.2 [facility] Work Phone: [phone] Urea nitrogen/Creatinine [Mass ratio] 10.7 mg/mg 10-20 [facility] Work Phone: [phone] Laboratory - Hematology and Cell countson 11-16-2021 Erythrocyte distribution width (RBC) [Entitic vol] 38.0 fL 35.1-43.9 [facility] Work Phone: [phone] Erythrocyte distribution width (RBC) [Ratio] 12.7 % 11.6-14.6 [facility] Work Phone: [phone] Immature granulocytes/100 WBC (Bld) 0.800 % 0.0-0.9 [facility] Work Phone: [phone] Comment on above: IG% - Immature Granu locytes (promyelocytes, myelocytes and metamyelocytes) > 1% indicates that a LEFT SHIFT is Present. MCH (RBC) [Entitic mass] 26.6 pg 27.0-32.0 [facility] Work Phone: [phone] Nucleated RBC/100 WBC (Bld) [Ratio] 0 % 0-5 [facility] Work Phone: [phone] MCHC Auto (RBC) [Mass/Vol]on 11-16-2021 MCHC (RBC) [Mass/Vol] 32.4 g/dL 32-36 [facility] Work Phone: [phone] Panel Informationon 11-16 Estimated Creatinine Clearance Calc 103.61 ml/min [facility] Work Phone: [phone] Estimated GFR (MDRD) Amer 117 mL/min >60 [facility] Work Phone: [phone] Comment on above: GFR Calc Estimated GFR (MDRD) Non-Af Amer 96 mL/min >60 [facility] Work Phone: [phone] Comment on above: Non- GFR Calc Platelets bldon 11-16-2021 Platelets (Bld) [#/Vol] 471 10*3/uL 150-450 [facility] Work Phone: [phone] Serum or plasma albumin hussein urement (mass/volume)on 11-16-2021 Albumin [Mass/Vol] 2.7 g/dL 3.2-5.0 [facility] Work Phone: [phone] Serum or plasma albumin/glob ulin mass ratioon 11-16-2021 Albumin/Globulin [Mass ratio] 0.4 {ratio} 0.9-2.4 [facility] Work Phone: [phone] Serum or plasma calcium hussein urement (mass/volume)on 11-16-2021 Calcium [Mass/Vol] 8.9 mg/dL 8.5-10.1 [facility] Work Phone: [phone] Serum or plasma creatinine m easurement (mass/volume)on 11-16-2021 Creatinine [Mass/Vol] 0.75 mg/dL 0.55-1.02 [facility] Work Phone: Comment on above: The validity of the calculated GFR & GFRAA in patients over 70 years has not been determined. Clinical correlation is essential. Serum or plasma urea nitroge n measurement (mass/volume)on 11-16-2021 Urea nitrogen [Mass/Vol] 8 mg/dL 7-18 [facility] Work Phone: Thin prep Papanicolaou smear with manual screeningon 11-16-2021 Thin prep Papanicolaou smear with manual screening 6 U/L 15-37 [facility] Work Phone: [phone] Thin prep Papanicolaou smear with manual screening 7 5-15 [facility] Work Phone: [phone] Absolute lymphocyte counton 10-29-2021 Lymphocytes Auto (Unsp spec) [#/Vol] 2.98 10*3/uL 0.83-4.51 [facility] Work Phone: Basophil percentageon 2021 Basophils/100 WBC (Bld) 0.5 % 0-1 [facility] Work Phone: [phone] Bilirubin [Mass/Vol] 0.30 mg/dL 0.20-1.00 [facility] Work Phone: [phone] Comment on above: For patients on eltr ombopag therapy, use of Dimension Harvest TBIL is not recommended. Chloride [Moles/Vol] 99 mmol/L 98-107 [facility] Work Phone: Eosinophils/100 WBC (Bld) 0.2 % 0-5 [facility] Work Phone: Glucose [Mass/Vol] 387 mg/dL 74-106 [facility] Work Phone: Comment on above: Glucose result great er than or equal to 200 mg/dLsuggests DIABETES MELLITUS per A.D.A. criteria. Neutrophils (Bld) [#/Vol] 9.2 10*3/uL 2.0-7.7 [facility] Work Phone: Neutrophils/100 WBC (Bld) 70.3 % 47-70 [facility] Work Phone: Potassium [Moles/Vol] 4.4 mmol/L 3.5-5.1 [facility] Work Phone: Protein [Mass/Vol] 9.0 g/dL 6.4-8.2 [facility] Work Phone: Sodium [Moles/Vol] 130 mmol/L 136-145 [facility] Work Phone: WBC (Bld) [#/Vol] 13.0 10*3/uL 4.4-11.0 [facility] Work Phone: Blood erythrocytes count (nu mber/volume)on 10-29-2021 RBC (Bld) [#/Vol] 4.95 10*6/uL 4.2-5.4 [facility] Work Phone: Blood hemoglobin measurement (mass/volume)on 10-29-2021 Hemoglobin (Bld) [Mass/Vol] 13.3 g/dL 12.0-15.0 [facility] Work Phone: Blood lymphocytes/100 leukoc yteson 10-29-2021 Lymphocytes/100 WBC (Bld) 22.9 % 19-41 [facility] Work Phone: Blood monocytes/100 leukocyt eson 10-29-2021 Monocytes/100 WBC (Bld) 5.3 % 0-10 [facility] Work Phone: [phone] Blood platelet mean volumeon 10-29-2021 Platelet mean volume (Bld) [Entitic vol] 9.0 fL 6.2-12.0 [facility] Work Phone: [phone] Determination of erythrocyte mean corpuscular volume (MCV)on 10-29-2021 MCV (RBC) [Entitic vol] 80.0 fL 81-99 [facility] Work Phone: [phone] Hematocrit Auto (Bld) [Volum e fraction]on 10-29-2021 Hematocrit (Bld) [Volume fraction] 39.6 % 37-47 [facility] Work Phone: [phone] Laboratory - Chemistry and C hemistry - challengeon 10-29-2021 ALP [Catalytic activity/Vol] 156 U/L 45-117 [facility] Work Phone: [phone] ALT [Catalytic activity/Vol] 23 U/L 13-56 [facility] Work Phone: [phone] CO2 [Moles/Vol] 25.0 mmol/L 21.0-32.0 [facility] Work Phone: [phone] Globulin (S) [Mass/Vol] 5.9 g/dL 2.2-4.2 [facility] Work Phone: [phone] Urea nitrogen/Creatinine [Mass ratio] 13.8 mg/mg 10-20 [facility] Work Phone: [phone] Laboratory - Hematology and Cell countson 10-29-2021 Erythrocyte distribution width (RBC) [Entitic vol] 37.2 fL 35.1-43.9 [facility] Work Phone: [phone] Erythrocyte distribution width (RBC) [Ratio] 13.1 % 11.6-14.6 [facility] Work Phone: [phone] Immature granulocytes/100 WBC (Bld) 0.800 % 0.0-0.9 [facility] Work Phone: [phone] Comment on above: IG% - Immature Granu locytes (promyelocytes, myelocytes and metamyelocytes) > 1% indicates that a LEFT SHIFT is Present. MCH (RBC) [Entitic mass] 26.9 pg 27.0-32.0 [facility] Work Phone: [phone] Nucleated RBC/100 WBC (Bld) [Ratio] 0 % 0-5 [facility] Work Phone: [phone] MCHC Auto (RBC) [Mass/Vol]on 10-29-2021 MCHC (RBC) [Mass/Vol] 33.6 g/dL 32-36 [facility] Work Phone: [phone] Panel Informationon 10-29 Estimated Creatinine Clearance Calc 89.32 ml/min [facility] Work Phone: [phone] Estimated GFR (MDRD) Amer 99 mL/min >60 [facility] Work Phone: [phone] Comment on above: GFR Calc Estimated GFR (MDRD) Non-Af Amer 82 mL/min >60 [facility] Work Phone: [phone] Comment on above: Non- GFR Calc Platelets bldon 10-29-2021 Platelets (Bld) [#/Vol] 460 10*3/uL 150-450 [facility] Work Phone: [phone] Serum or plasma albumin hussein urement (mass/volume)on 10-29-2021 Albumin [Mass/Vol] 3.1 g/dL 3.2-5.0 [facility] Work Phone: [phone] Serum or plasma albumin/glob ulin mass ratioon 10-29-2021 Albumin/Globulin [Mass ratio] 0.5 {ratio} 0.9-2.4 [facility] Work Phone: [phone] Serum or plasma calcium hussein urement (mass/volume)on 10-29-2021 Calcium [Mass/Vol] 9.0 mg/dL 8.5-10.1 [facility] Work Phone: [phone] Serum or plasma choriogonado tropin detectionon 10-29-2021 HCG ( test) Ql < 1 mIU/mL <4 [facility] Work Phone: [phone] Comment on above: hCG levels with Gest ational AgeGestational Age hCG mIU/mL (IU/L)0.2 - 1 week 5 - 501-2 weeks 50 - 5002-3 weeks 100 - 03989-2 weeks 500 - 663819-5 weeks 1000 - 862373-9 weeks 82067 - 100,0006-8 weeks 21515 - 200,0002-3 months 82973 - 100,000 Serum or plasma creatinine m easurement (mass/volume)on 10-29-2021 Creatinine [Mass/Vol] 0.87 mg/dL 0.55-1.02 [facility] Work Phone: Comment on above: The validity of the calculated GFR & GFRAA in patients over 70 years has not been determined. Clinical correlation is essential. Serum or plasma urea nitroge n measurement (mass/volume)on 10-29-2021 Urea nitrogen [Mass/Vol] 12 mg/dL 7-18 [facility] Work Phone: Thin prep Papanicolaou smear with manual screeningon 10-29-2021 Thin prep Papanicolaou smear with manual screening 13 U/L 15-37 [facility] Work Phone: Thin prep Papanicolaou smear with manual screening 6 5-15 [facility] Work Phone: Absolute lymphocyte counton 08-10-2021 Lymphocytes Auto (Unsp spec) [#/Vol] 0.86 10*3/uL 0.83-4.51 [facility] Work Phone: Basophil percentageon 2021 Basophil percentage 5-10 SEEN /hpf [facility] Work Phone: Basophils/100 WBC (Bld) 0.2 % 0-1 [facility] Work Phone: Chloride [Moles/Vol] 100 mmol/L 98-107 [facility] Work Phone: Eosinophils/100 WBC (Bld) 0.3 % 0-5 [facility] Work Phone: Glucose [Mass/Vol] 406 mg/dL 74-106 [facility] Work Phone: Comment on above: Glucose result great er than or equal to 200 mg/dLsuggests DIABETES MELLITUS per A.D.A. criteria. Neutrophils (Bld) [#/Vol] 12.4 10*3/uL 2.0-7.7 [facility] Work Phone: Neutrophils/100 WBC (Bld) 89.0 % 47-70 [facility] Work Phone: Potassium [Moles/Vol] 4.2 mmol/L 3.5-5.1 [place] [facility] Work Phone: [phone] Sodium [Moles/Vol] 134 mmol/L 136-145 [facility] Work Phone: WBC (Bld) [#/Vol] 14.0 10*3/uL 4.4-11.0 [facility] Work Phone: Beta hCG serum qualon 2021 Beta HCG ( test) Ql Negative [facility] Work Phone: Bilirubin Test strip Ql (U)o n 08-10-2021 Bilirubin Ql (U) Negative Negative [facility] Work Phone: Blood erythrocytes count (nu mber/volume)on 08-10-2021 RBC (Bld) [#/Vol] 5.34 10*6/uL 4.2-5.4 [facility] Work Phone: Blood hemoglobin measurement (mass/volume)on 08-10-2021 Hemoglobin (Bld) [Mass/Vol] 14.7 g/dL 12.0-15.0 [facility] Work Phone: Blood lymphocytes/100 leukoc yteson 08-10-2021 Lymphocytes/100 WBC (Bld) 6.1 % 19-41 [facility] Work Phone: Blood monocytes/100 leukocyt eson 08-10-2021 Monocytes/100 WBC (Bld) 4.0 % 0-10 [facility] Work Phone: Blood platelet mean volumeon 08-10-2021 Platelet mean volume (Bld) [Entitic vol] 9.6 fL 6.2-12.0 [facility] Work Phone: [phone] Determination of erythrocyte mean corpuscular volume (MCV)on 08-10-2021 MCV (RBC) [Entitic vol] 82.4 fL 81-99 [facility] Work Phone: [phone] Glucose Glucometer (BldC) [M ass/Vol]on 08-10-2021 Glucose [Mass/Vol] 377 mg/dL 70-110 [facility] Work Phone: [phone] Comment on above: MANAGEMENT OF PATIEN T CARE PER NURSING PROTOCOL Hematocrit Auto (Bld) [Volum e fraction]on 08-10-2021 Hematocrit (Bld) [Volume fraction] 44.0 % 37-47 [facility] Work Phone: [phone] Ketones Test strip Ql (U)on 08-10-2021 Ketones Ql (U) 150 mg/dl Negative [facility] Work Phone: [phone] Comment on above: CRITICAL VALUE *HCRI TICAL VALUE VERIFIED. CALLED TO Rafa PERAZA RN (ED)08/10/21 [id number].RESULTS READ BACK BY SAME . Laboratory - Chemistry and C hemistry - challengeon 08-10-2021 CO2 [Moles/Vol] 23.0 mmol/L 21.0-32.0 [facility] Work Phone: [phone] Urea nitrogen/Creatinine [Mass ratio] 18.6 mg/mg 10-20 [facility] Work Phone: [phone] Laboratory - Hematology and Cell countson 08-10-2021 Erythrocyte distribution width (RBC) [Entitic vol] 39.0 fL 35.1-43.9 [facility] Work Phone: [phone] Erythrocyte distribution width (RBC) [Ratio] 13.1 % 11.6-14.6 [facility] Work Phone: [phone] Immature granulocytes/100 WBC (Bld) 0.400 % 0.0-0.9 [facility] Work Phone: [phone] Comment on above: IG% - Immature Granu locytes (promyelocytes, myelocytes and metamyelocytes) > 1% indicates that a LEFT SHIFT is Present. MCH (RBC) [Entitic mass] 27.5 pg 27.0-32.0 [facility] Work Phone: [phone] Nucleated RBC/100 WBC (Bld) [Ratio] 0 % 0-5 [facility] Work Phone: [phone] MCHC Auto (RBC) [Mass/Vol]on 08-10-2021 MCHC (RBC) [Mass/Vol] 33.4 g/dL 32-36 [facility] Work Phone: [phone] Mucus LM Ql (Urine sed)on Mucus Ql (Urine sed) 0 SEEN /hpf [facility] Work Phone: [phone] Nitrite Test strip Ql (U)on 08-10-2021 Nitrite Ql (U) Negative Negative [facility] Work Phone: [phone] Panel Informationon 08-10 Estimated Creatinine Clearance Calc 90.36 ml/min [facility] Work Phone: [phone] Estimated GFR (MDRD) Amer 100 mL/min >60 [facility] Work Phone: [phone] Comment on above: GFR Calc Estimated GFR (MDRD) Non-Af Amer 83 mL/min >60 [facility] Work Phone: [phone] Comment on above: Non- GFR Calc Platelets bldon 08-10-2021 Platelets (Bld) [#/Vol] 343 10*3/uL 150-450 [facility] Work Phone: [phone] Protein Test strip Ql (U)on 08-10-2021 Protein Ql (U) 30 mg/dl Negative [facility] Work Phone: [phone] Serum or plasma calcium hussein urement (mass/volume)on 08-10-2021 Calcium [Mass/Vol] 8.8 mg/dL 8.5-10.1 [facility] Work Phone: [phone] Serum or plasma creatinine m easurement (mass/volume)on 08-10-2021 Creatinine [Mass/Vol] 0.86 mg/dL 0.55-1.02 [facility] Work Phone: Comment on above: The validity of the calculated GFR & GFRAA in patients over 70 years has not been determined. Clinical correlation is essential. Serum or plasma urea nitroge n measurement (mass/volume)on 08-10-2021 Urea nitrogen [Mass/Vol] 16 mg/dL 7-18 [facility] Work Phone: Squamous epithelial cells de tection in urine sediment by light microscopyon 08-10-2021 Epithelial cells.squamous LM Ql (Urine sed) 0-5 SEEN /hpf [facility] Work Phone: Thin prep Papanicolaou smear with manual screeningon 08-10-2021 Thin prep Papanicolaou smear with manual screening 11 5-15 [facility] Work Phone: Urine blood detectionon 07-14 RBC Ql (U) 250 /ul Negative [facility] Work Phone: RBC Ql (U) > 100 SEEN /hpf [facility] Work Phone: Urine clarityon 08-10-2021 Clarity (U) Cloudy Clear [facility] Work Phone: Urine color determinationon 08-10-2021 Color (U) Yellow Yellow [facility] Work Phone: Urine glucose detectionon Glucose Ql (U) 1000 mg/dl Normal [facility] Work Phone: Urine leukocyte esterase det ection by dipstickon 08-10-2021 Leukocyte esterase Test strip Ql (U) 25 /ul Negative [facility] Work Phone: Urine pHon 08-10-2021 pH (U) 7.0 [pH] [facility] Work Phone: Urine sediment bacteria coun t by microscopy (number/high power field)on 08-10-2021 Bacteria LM.HPF (Urine sed) [#/Area] 1 /[HPF] None Seen [facility] Work Phone: Urine specific gravity measu rementon 08-10-2021 Specific gravity (U) [Rel density] 1.005 [facility] Work Phone: Urobilinogen Auto test strip Ql (U)on 08-10-2021 Urobilinogen Ql (U) 1 mg/dl Normal [facility] Work Phone: XR Chest PA and Lateralon IMPRESSION: No acute radiographic abnormality. [employer] Worker: OLGA Transcribe Date/Time: May 15 2021 10:07A Dictated by : ELISEO LYON MD This examination was interpreted and the report reviewed and electronically signed by: ELISEO LYON MD on May 15 2021 10:08AM [facility] DIVISION OF RADIOLOGY * * *Final Report* [...] soft tissues: Unremarkable. DIVISION OF RADIOLOGY Provider, [facility] - 05/15/2021 * * *Final [...] Unremarkable. IMPRESSION IMPRESSION: No acute radiographic abnormality. [employer] Worker: OLGA Transcribe Date/Time: May 15 2021 10:07A Dictated by : ELISEO LYON MD This examination was interpreted and the report reviewed and electronically signed by: ELISEO LYON MD on May 15 2021 10:08AM EST [facility] Radiology Study observation (narrative) Melissa gupta [facility] XR Chest PA and LateralOrder ed By: [facility] Provider on 05-15-2021 [facility] Anaerobic culture Bacteria identified Anaer cx Nom (Unsp spec) No anaerobic bacteria isolated. [facility] Work Phone: Bacteria identified Anaer cx Nom (Unsp spec) Anaerobic microbial culture No anaerobic bacteria isolated. [facility] Work Phone: [phone] Bacteria identified Cx Nom ( Wound) Wound Culture Meth. resistant Stap h. aureus [facility] Work Phone: [phone] Wound Culture Streptococcus agalactiae (B) [facility] Work Phone: COVID-19 virus antigen assay SARS-CoV-2 (COVID-19) Ag IA.rapid Ql (Resp) [facility] Work Phone: Culture, urine Bacteria identified Cx Nom (U) Culture exhibits no growth. [facility] Work Phone: [phone] Gram stain for investigation of transfusion reaction Microscopic observation Gram stain Nom (Unsp spec) [facility] Work Phone: Laboratory - Microbiology an d Antimicrobial susceptibility Bacteria identified Cx Nom (Bld) No growth in 5 days. [facility] Work Phone: [phone] Routine wound culture Bacteria identified Cx Nom (Wound) No growth aerobically. [facility] Work Phone: Vital Signs Date Time Vital Sign Value Performing Clinician Facility 01-02-2025 10:43-0400 Body temperature 97.8 [degF] Amy Solorzano NP-C Work Phone: [facility] 01-02-2025 10:43-0400 Diastolic blood pressure 89 mm[Hg] Amy Solorzano NP-C Work Phone: [facility] 01-02-2025 10:43-0400 Heart rate 85 /min Amy Solorzano NP-C Work Phone: [facility] 01-02-2025 10:43-0400 Respiratory rate 18 /min Amy Solorzano [employer] Work Phone: [phone] [place] [address] 01-02-2025 10:43-0400 SaO2% (BldA) [Mass fraction] 99 % Amy Solorzano [employer]PER[employer] Work Phone: [phone] [place] [address] 01-02-2025 10:43-0400 Systolic blood pressure 159 mm[Hg] Amy Solorzano [employer] OPERATOR-[employer] Work Phone: [phone] [place] [address] 01-02-2025 06:57-0400 Body height 167.64 cm Amykeiko Solorzano [employer] OPERATOR-[employer] Work Phone: [phone] [place] [address] 01-02-2025 06:57-0400 Body mass index (BMI) [Ratio] 38 kg/m2 Amy Solorzano [employer]PERATOR-[employer] Work Phone: [phone] [place] [address] 01-02-2025 06:57-0400 Body weight 107.04 kg Amy Solorzano [employer] OPERATOR-C Work Phone: [phone] [place] [address] 01-01-2025 13:20-0400 Diastolic blood pressure 87 mm[Hg] Amy Solorzano [employer] OPERATOR-C Work Phone: [phone] [place] [address] 01-01-2025 13:20-0400 Heart rate 100 /min Amykeiko Solorzano [employer] OPERATOR-C Work Phone: [phone] [place] [address] 01-01-2025 13:20-0400 Respiratory rate 20 /min Amy Solorzano [employer] OPERATOR-[employer] Work Phone: [phone] [place] [address] 01-01-2025 13:20-0400 SaO2% (BldA) [Mass fraction] 98 % Amy Solorzano [employer] OPERATOR-[employer] Work Phone: 7(525)070-231892 [place] [address] 01-01-2025 13:20-0400 Systolic blood pressure 103 mm[Hg] Amy Solorzano BOAT HOIST OPERATOR-C Work Phone: 8(452)753-888492 [place] [address] 01-01-2025 12:00-0400 Body temperature 98.1 [degF] Amy Solorzano BOAT HOIST OPERATOR-C Work Phone: 4(583)090-644792 [place] [address] 01-01-2025 04:10-0400 Body mass index (BMI) [Ratio] 38.9 kg/m2 Amy Solorzano BOAT HOIST OPERATOR-C Work Phone: 4(624)024-309192 [place] [address] 01-01-2025 04:10-0400 Body weight 109.8 kg Amypalma Solorzano BOAT HOIST OPERATOR-C Work Phone: 0(761)646-206792 [place] [address] 12-31-2024 23:46-0400 Body height 167.64 cm Amy Solorzano BOAT HOIST OPERATOR-C Work Phone: 8(747)764-204392 [place] [address] 12-31-2024 23:18-0400 Body temperature 98.3 [degF] Amy Solorzano BOAT HOIST OPERATOR-C Work Phone: 0(732)017-424492 [place] [address] 12-31-2024 23:18-0400 Diastolic blood pressure 103 mm[Hg] Amy Solorzano BOAT HOIST OPERATOR-C Work Phone: 2(451)675-029092 [place] [address] 12-31-2024 23:18-0400 Heart rate 88 /min Amy Solorzano BOAT HOIST OPERATOR-C Work Phone: 1(987)842-047992 [place] [address] 12-31-2024 23:18-0400 Respiratory rate 16 /min Amypalma Solorzano BOAT HOIST OPERATOR-C Work Phone: 7(259)514-515192 [place] [address] 12-31-2024 23:18-0400 SaO2% (BldA) [Mass fraction] 99 % Amykeiko Solorzano BOAT HOIST OPERATOR-C Work Phone: 9(260)302-804592 [place] [address] 12-31-2024 23:18-0400 Systolic blood pressure 156 mm[Hg] Amy Solorzano BOAT HOIST OPERATOR-C Work Phone: 6(420)706-177692 [place] [address] 12-31-2024 18:33-0400 Body height 167.64 cm Amy Solorzano BOAT HOIST OPERATOR-C Work Phone: 6(433)534-089592 [place] [address] 12-31-2024 18:33-0400 Body mass index (BMI) [Ratio] 38.4 kg/m2 Amy Solorzano BOAT HOIST OPERATOR-C Work Phone: 6(978)000-396892 [place] [address] 12-31-2024 18:33-0400 Body weight 107.95 kg Amy Solorzano BOAT HOIST OPERATOR-C Work Phone: 6(854)805-262292 [place] [address] 12-31-2024 08:00-0400 Body temperature 98.2 [degF] Amy Solorzano BOAT HOIST OPERATOR-C Work Phone: 7(716)039-491992 [place] [address] 12-31-2024 08:00-0400 Diastolic blood pressure 81 mm[Hg] Amy Solorzano BOAT HOIST OPERATOR-C Work Phone: 5(190)770-869092 [place] [address] 12-31-2024 08:00-0400 Heart rate 73 /min Amy Solorzano BOAT HOIST OPERATOR-C Work Phone: 7(436)630-753692 [place] [address] 12-31-2024 08:00-0400 Respiratory rate 23 /min Amy Solorzano BOAT HOIST OPERATOR-C Work Phone: 6(582)881-885992 [place] [address] 12-31-2024 08:00-0400 SaO2% (BldA) [Mass fraction] 98 % Amy Solorzano BOAT HOIST OPERATOR-C Work Phone: 2(227)052-282792 [place] [address] 12-31-2024 08:00-0400 Systolic blood pressure 123 mm[Hg] Amy Solorzano BOAT HOIST OPERATOR-C Work Phone: 7(695)253-919192 [place] [address] 12-31-2024 05:29-0400 Body mass index (BMI) [Ratio] 39.2 kg/m2 Amy Solorzano BOAT HOIST OPERATOR-C Work Phone: 9(814)895-717292 [place] [address] 12-31-2024 05:29-0400 Body weight 110.1 kg Amy Sloorzano BOAT HOIST OPERATOR-C Work Phone: 9(570)433-993092 [place] [address] 12-30-2024 13:37-0400 Body height 167.64 cm Amy Solorzano BOAT HOIST OPERATOR-C Work Phone: 2(018)641-420092 [place] [address] 12-30-2024 12:35-0400 Body temperature 97.4 [degF] Amy Solorzano BOAT HOIST OPERATOR-C Work Phone: 6(764)730-113092 [place] [address] 12-30-2024 12:35-0400 Diastolic blood pressure 93 mm[Hg] Amy Solorzano BOAT HOIST OPERATOR-C Work Phone: 5(611)110-160692 [place] [address] 12-30-2024 12:35-0400 Heart rate 94 /min Amy Solorzano BOAT HOIST OPERATOR-C Work Phone: 5(475)992-845192 [place] [address] 12-30-2024 12:35-0400 Respiratory rate 18 /min Amy Solorzano BOAT HOIST OPERATOR-C Work Phone: 9(948)192-293692 [place] [address] 12-30-2024 12:35-0400 SaO2% (BldA) [Mass fraction] 96 % Amykeiko Solorzano BOAT HOIST OPERATOR-C Work Phone: 1(458)375-265392 [place] [address] 12-30-2024 12:35-0400 Systolic blood pressure 126 mm[Hg] Amy Solorzano BOAT HOIST OPERATOR-C Work Phone: 9(414)810-641492 [place] [address] 12-30-2024 10:25-0400 Body height 167.64 cm Amypalma Solorzano BOAT HOIST OPERATOR-C Work Phone: 3(527)917-958992 [place] [address] 12-30-2024 10:25-0400 Body mass index (BMI) [Ratio] 37.7 kg/m2 Amy Solorzano BOAT HOIST OPERATOR-C Work Phone: 2(545)904-543192 [place] [address] 12-30-2024 10:25-0400 Body weight 106 kg Amy Solorzano BOAT HOIST OPERATOR-C Work Phone: 7(372)941-272892 [place] [address] 12-13-2024 08:30-0400 Body height 167.64 cm Amy Solorzano BOAT HOIST OPERATOR-C Work Phone: 1(483)361-948992 [place] [address] 12-13-2024 08:30-0400 Body mass index (BMI) [Ratio] 39.2 kg/m2 Amy Solorzano BOAT HOIST OPERATOR-C Work Phone: 0(385)230-919392 [place] [address] 12-13-2024 08:30-0400 Body weight 110.22 kg Amy Solorzano BOAT HOIST OPERATOR-C Work Phone: 8(898)177-389492 [place] [address] 12-13-2024 08:30-0400 Diastolic blood pressure 97 mm[Hg] Amy Solorzano BOAT HOIST OPERATOR-C Work Phone: 8(332)288-772792 [place] [address] 12-13-2024 08:30-0400 Heart rate 93 /min Amy Solorzano BOAT HOIST OPERATOR-C Work Phone: 7(192)692-237292 [place] [address] 12-13-2024 08:30-0400 Respiratory rate 19 /min Amy Solorzano BOAT HOIST OPERATOR-C Work Phone: 0(467)315-559392 [place] [address] 12-13-2024 08:30-0400 SaO2% (BldA) [Mass fraction] 97 % Amy Solorzano BOAT HOIST OPERATOR-C Work Phone: 0(714)014-703422 [place] [address] 12-13-2024 08:30-0400 Systolic blood pressure 138 mm[Hg] Amy Solorzano BOAT HOIST OPERATOR-C Work Phone: 8(932)438-564792 [place] [address] 11-28-2024 13:00-0400 Body temperature 98 [degF] Amy Solorzano BOAT HOIST OPERATOR-C Work Phone: 2(920)634-435192 [place] [address] 11-28-2024 13:00-0400 Diastolic blood pressure 96 mm[Hg] Amy Solorzano BOAT HOIST OPERATOR-C Work Phone: 8(377)210-178706 [address] 11-28-2024 13:00-0400 Heart rate 60 /min Amy Solorzano BOAT HOIST OPERATOR-C Work Phone: 9(542)619-372892 [place] [address] 11-28-2024 13:00-0400 SaO2% (BldA) [Mass fraction] 99 % Amy Solorzano BOAT HOIST OPERATOR-C Work Phone: 3(052)816-734892 [place] [address] 11-28-2024 13:00-0400 Systolic blood pressure 156 mm[Hg] Amy Solorzano BOAT HOIST OPERATOR-C Work Phone: 4(626)837-725892 [place] [address] 11-28-2024 08:25-0400 Body temperature 98.1 [degF] Amy Solorzano BOAT HOIST OPERATOR-C Work Phone: 5(625)502-130892 [place] [address] 11-28-2024 08:25-0400 Diastolic blood pressure 84 mm[Hg] Amy Solorzano BOAT HOIST OPERATOR-C Work Phone: 5(334)885-609092 [place] [address] 11-28-2024 08:25-0400 Heart rate 75 /min Amy Solorzano BOAT HOIST OPERATOR-C Work Phone: 7(655)076-151892 [place] [address] 11-28-2024 08:25-0400 Respiratory rate 18 /min Amy Solorzano BOAT HOIST OPERATOR-C Work Phone: 4(599)906-122192 [place] [address] 11-28-2024 08:25-0400 SaO2% (BldA) [Mass fraction] 97 % Amy Solorzano BOAT HOIST OPERATOR-C Work Phone: 7(990)715-492492 [place] [address] 11-28-2024 08:25-0400 Systolic blood pressure 154 mm[Hg] Amy Solorzano BOAT HOIST OPERATOR-C Work Phone: 6(602)989-153692 [place] [address] 11-27-2024 13:47-0400 Body height 167.64 cm Amy Solorzano BOAT HOIST OPERATOR-C Work Phone: 2(656)296-477792 [place] [address] 11-27-2024 13:47-0400 Body weight 110.7 kg Amy Solorzano BOAT HOIST OPERATOR-C Work Phone: 8(174)407-469992 [place] [address] 11-25-2024 14:54-0400 Body mass index (BMI) [Ratio] 39.4 kg/m2 Amy Solorzano BOAT HOIST OPERATOR-C Work Phone: 6(889)533-740492 [place] [address] 11-25-2024 14:00-0400 Diastolic blood pressure 91 mm[Hg] Amy Solorzano BOAT HOIST OPERATOR-C Work Phone: 7(550)400-692792 [place] [address] 11-25-2024 14:00-0400 Heart rate 91 /min Amy Solorzano BOAT HOIST OPERATOR-C Work Phone: 6(863)558-422892 [place] [address] 11-25-2024 14:00-0400 Respiratory rate 18 /min Amy Solorzano BOAT HOIST OPERATOR-C Work Phone: 5(648)995-887692 [place] [address] 11-25-2024 14:00-0400 SaO2% (BldA) [Mass fraction] 95 % Amy Solorzano BOAT HOIST OPERATOR-C Work Phone: 9(022)152-411492 [place] [address] 11-25-2024 14:00-0400 Systolic blood pressure 129 mm[Hg] Amy Solorzano BOAT HOIST OPERATOR-C Work Phone: 2(593)073-598792 [place] [address] 11-25-2024 11:00-0400 Body temperature 97.6 [degF] Amy Solorzano BOAT HOIST OPERATOR-C Work Phone: 2(021)828-812592 [place] [address] 11-25-2024 08:48-0400 Body height 167.64 cm Amy Solorzano BOAT HOIST OPERATOR-C Work Phone: 5(356)407-038392 [place] [address] 11-25-2024 08:48-0400 Body mass index (BMI) [Ratio] 40.9 kg/m2 Amy Solorzano BOAT HOIST OPERATOR-C Work Phone: 7(462)245-650192 [place] [address] 11-25-2024 08:48-0400 Body weight 115.03 kg Amy Solorzano BOAT HOIST OPERATOR-C Work Phone: 6(612)726-037992 [place] [address] 07-03-2024 12:26-0500 Body mass index (BMI) [Ratio] 40.02 kg/m2 Krislyn Aberegg PA Work Phone: [facility] 07-03-2024 12:26-0500 Body temperature 97 [degF] Krislyn Aberegg PA Work Phone: [facility] 07-03-2024 12:26-0500 Body weight 115.9 kg Krislyn Aberegg PA Work Phone: [facility] 07-03-2024 12:26-0500 Diastolic blood pressure 90 mm[Hg] Krislyn Aberegg PA Work Phone: [facility] 07-03-2024 12:26-0500 Heart rate 104 /min Krislyn Aberegg PA Work Phone: [facility] 07-03-2024 12:26-0500 Respiratory rate 16 /min Krislyn Aberegg PA Work Phone: [facility] 07-03-2024 12:26-0500 SaO2% (BldA) [Mass fraction] 100 % Krislyn Aberegg PA Work Phone: [facility] 07-03-2024 12:26-0500 Systolic blood pressure 122 mm[Hg] Krislyn Aberegg PA Work Phone: [facility] 06-26-2024 10:36-0500 Body mass index (BMI) [Ratio] 39.95 kg/m2 Frantz Clutter PA-C Work Phone: [facility] 06-26-2024 10:36-0500 Body temperature 97.39 [degF] Frantz Clutter PA-C Work Phone: [facility] 06-26-2024 10:36-0500 Body weight 115.7 kg Frantz Clutter PA-C Work Phone: [facility] 06-26-2024 10:36-0500 Diastolic blood pressure 78 mm[Hg] Frantz Clutter PA-C Work Phone: [facility] 06-26-2024 10:36-0500 Heart rate 117 /min Frantz Clutter PA-C Work Phone: [facility] 06-26-2024 10:36-0500 Respiratory rate 18 /min Frantz Clutter PA-C Work Phone: [facility] 06-26-2024 10:36-0500 SaO2% (BldA) [Mass fraction] 97 % Frantz Clutter PA-C Work Phone: [facility] 06-26-2024 10:36-0500 Systolic blood pressure 122 mm[Hg] Frantz Clutter PA-C Work Phone: [facility] 07-23-2023 11:30-0500 Body temperature 96.9 [degF] No Primary Care Physician [facility] 07-23-2023 11:30-0500 Diastolic blood pressure 82 mm[Hg] No Primary Care Physician [facility] 07-23-2023 11:30-0500 Heart rate 80 /min No Primary Care Physician [facility] 07-23-2023 11:30-0500 Respiratory rate 16 /min No Primary Care Physician [facility] 07-23-2023 11:30-0500 SaO2% (BldA) [Mass fraction] 99 % No Primary Care Physician [facility] 07-23-2023 11:30-0500 Systolic blood pressure 117 mm[Hg] No Primary Care Physician [facility] 07-23-2023 11:05-0500 Inhaled oxygen flow rate 4 L/min No Primary Care Physician [facility] 07-23-2023 08:34-0500 Body height 167.64 cm No Primary Care Physician [facility] 07-23-2023 08:34-0500 Body mass index (BMI) [Ratio] 32.5 kg/m2 No Primary Care Physician [facility] 07-23-2023 08:34-0500 Body weight 91.62 kg No Primary Care Physician [facility] 07-12-2023 10:13-0500 Body mass index (BMI) [Ratio] 32.1 kg/m2 No Primary Care Physician [facility] 07-12-2023 10:13-0500 Body temperature 98.2 [degF] No Primary Care Physician [facility] 07-12-2023 10:13-0500 Body weight 90.4 kg No Primary Care Physician [facility] 07-12-2023 10:13-0500 Diastolic blood pressure 90 mm[Hg] No Primary Care Physician [facility] 07-12-2023 10:13-0500 Heart rate 98 /min No Primary Care Physician [facility] 07-12-2023 10:13-0500 Respiratory rate 14 /min No Primary Care Physician [facility] 07-12-2023 10:13-0500 SaO2% (BldA) [Mass fraction] 100 % No Primary Care Physician [facility] 07-12-2023 10:13-0500 Systolic blood pressure 124 mm[Hg] No Primary Care Physician [facility] 07-02-2023 09:17-0500 Diastolic blood pressure 94 mm[Hg] No Primary Care Physician [facility] 07-02-2023 09:17-0500 Systolic blood pressure 142 mm[Hg] No Primary Care Physician [facility] 07-02-2023 09:14-0500 Body height 167.64 cm No Primary Care Physician [facility] 07-02-2023 09:14-0500 Body temperature 96.4 [degF] No Primary Care Physician [facility] 07-02-2023 09:14-0500 Heart rate 100 /min No Primary Care Physician [facility] 07-02-2023 09:14-0500 Respiratory rate 16 /min No Primary Care Physician [facility] 07-02-2023 09:14-0500 SaO2% (BldA) [Mass fraction] 100 % No Primary Care Physician [facility] 07-01-2023 10:07-0500 Body temperature 97 [degF] Andres Galaviz APRN.[employer] Work Phone: [facility] 07-01-2023 10:07-0500 Body weight 93.44 kg Andres Galaviz APRN.CNP Work Phone: [facility] 07-01-2023 10:07-0500 Diastolic blood pressure 82 mm[Hg] Andres Galaviz APRN.[employer] Work Phone: [facility] 07-01-2023 10:07-0500 Heart rate 91 /min Andres Pendlejosé luis HEATSET WINDER OPERATOR.[employer] Work Phone: [facility] 07-01-2023 10:07-0500 Respiratory rate 18 /min Andres Johnjosé luis HEATSET WINDER OPERATOR.[employer] Work Phone: [facility] 07-01-2023 10:07-0500 SaO2% (BldA) [Mass fraction] 100 % Andres Johnjosé luis HEATSET WINDER OPERATOR.[employer] Work Phone: [facility] 07-01-2023 10:07-0500 Systolic blood pressure 117 mm[Hg] [facility] [employer]AT[employer] WINDER OPERATOR.[employer] Work Phone: [facility] 06-30-2023 13:41-0500 Heart rate 72 /min No Primary Care Physician [facility] 06-30-2023 13:41-0500 Respiratory rate 16 /min No Primary Care Physician [facility] 06-30-2023 13:41-0500 SaO2% (BldA) [Mass fraction] 98 % No Primary Care Physician [facility] 06-30-2023 09:24-0500 Body mass index (BMI) [Ratio] 34 kg/m2 No Primary Care Physician [facility] 06-30-2023 09:24-0500 Body weight 95.7 kg No Primary Care Physician [facility] 06-30-2023 08:22-0500 Body temperature 98 [degF] No Primary Care Physician [facility] 06-30-2023 08:22-0500 Diastolic blood pressure 110 mm[Hg] No Primary Care Physician [facility] 06-30-2023 08:22-0500 Systolic blood pressure 170 mm[Hg] No Primary Care Physician [facility] 06-28-2023 09:17-0500 Body height 167.64 cm No Primary Care Physician [facility] 06-28-2023 09:17-0500 Body mass index (BMI) [Ratio] 33.6 kg/m2 No Primary Care Physician [facility] 06-28-2023 09:17-0500 Body temperature 98.2 [degF] No Primary Care Physician [facility] 06-28-2023 09:17-0500 Body weight 94.5 kg No Primary Care Physician [facility] 06-28-2023 09:17-0500 Diastolic blood pressure 105 mm[Hg] No Primary Care Physician [facility] 06-28-2023 09:17-0500 Heart rate 82 /min No Primary Care Physician [facility] 06-28-2023 09:17-0500 Respiratory rate 14 /min No Primary Care Physician [facility] 06-28-2023 09:17-0500 SaO2% (BldA) [Mass fraction] 99 % No Primary Care Physician [facility] 06-28-2023 09:17-0500 Systolic blood pressure 154 mm[Hg] No Primary Care Physician [facility] 06-27-2023 05:50-0500 Body height 167.64 cm No Primary Care Physician [facility] 06-27-2023 05:50-0500 Body mass index (BMI) [Ratio] 34 kg/m2 No Primary Care Physician [facility] 06-27-2023 05:50-0500 Body temperature 98.6 [degF] No Primary Care Physician [facility] 06-27-2023 05:50-0500 Body weight 95.7 kg No Primary Care Physician [facility] 06-27-2023 05:50-0500 Diastolic blood pressure 98 mm[Hg] No Primary Care Physician [facility] 06-27-2023 05:50-0500 Heart rate 85 /min No Primary Care Physician [facility] 06-27-2023 05:50-0500 Respiratory rate 16 /min No Primary Care Physician [facility] 06-27-2023 05:50-0500 SaO2% (BldA) [Mass fraction] 99 % No Primary Care Physician [facility] 06-27-2023 05:50-0500 Systolic blood pressure 163 mm[Hg] No Primary Care Physician [facility] 06-26-2023 17:04-0500 Heart rate 74 /min No Primary Care Physician [facility] 06-26-2023 17:04-0500 Respiratory rate 18 /min No Primary Care Physician [facility] 06-26-2023 17:04-0500 SaO2% (BldA) [Mass fraction] 97 % No Primary Care Physician [facility] 06-26-2023 11:30-0500 Body height 167.64 cm No Primary Care Physician [facility] 06-26-2023 11:30-0500 Body mass index (BMI) [Ratio] 34.1 kg/m2 No Primary Care Physician [facility] 06-26-2023 11:30-0500 Body temperature 97 [degF] No Primary Care Physician [facility] 06-26-2023 11:30-0500 Body weight 95.98 kg No Primary Care Physician [facility] 06-26-2023 11:30-0500 Diastolic blood pressure 120 mm[Hg] No Primary Care Physician [facility] 06-26-2023 11:30-0500 Systolic blood pressure 135 mm[Hg] No Primary Care Physician [facility] 06-25-2023 12:33-0500 Diastolic blood pressure 69 mm[Hg] No Primary Care Physician [facility] 06-25-2023 12:33-0500 Heart rate 82 /min No Primary Care Physician [facility] 06-25-2023 12:33-0500 Respiratory rate 16 /min No Primary Care Physician [facility] 06-25-2023 12:33-0500 SaO2% (BldA) [Mass fraction] 100 % No Primary Care Physician [facility] 06-25-2023 12:33-0500 Systolic blood pressure 124 mm[Hg] No Primary Care Physician [facility] 06-25-2023 09:27-0500 Body height 168 cm No Primary Care Physician [facility] 06-25-2023 09:27-0500 Body mass index (BMI) [Ratio] 32.1 kg/m2 No Primary Care Physician [facility] 06-25-2023 09:27-0500 Body temperature 96.5 [degF] No Primary Care Physician [facility] 06-25-2023 09:27-0500 Body weight 90.71 kg No Primary Care Physician [facility] 05-09-2023 14:02-0400 Body temperature 98.4 [degF] No Primary Care Physician [facility] 05-09-2023 14:02-0400 Diastolic blood pressure 102 mm[Hg] No Primary Care Physician [facility] 05-09-2023 14:02-0400 Heart rate 74 /min No Primary Care Physician [facility] 05-09-2023 14:02-0400 Respiratory rate 18 /min No Primary Care Physician [facility] 05-09-2023 14:02-0400 SaO2% (BldA) [Mass fraction] 100 % No Primary Care Physician [facility] 05-09-2023 14:02-0400 Systolic blood pressure 177 mm[Hg] No Primary Care Physician [facility] 05-09-2023 13:32-0400 Body temperature 98.4 [degF] [facility] Work Phone: 3(520)704-559692 [place] [address] 05-09-2023 13:32-0400 Diastolic blood pressure 121 mm[Hg] [facility] Work Phone: 6(174)166-914792 [place] [address] 05-09-2023 13:32-0400 Heart rate 74 /min [facility] Work Phone: 4(989)049-366892 [place] [address] 05-09-2023 13:32-0400 Respiratory rate 18 /min [facility] Work Phone: 8(593)643-132992 [place] [address] 05-09-2023 13:32-0400 SaO2% (BldA) [Mass fraction] 100 % [facility] Work Phone: 4(372)982-842192 [place] [address] 05-09-2023 13:32-0400 Systolic blood pressure 177 mm[Hg] [facility] Work Phone: 3(636)669-900392 [place] [address] 05-07-2023 11:35-0400 Body height 167.64 cm [facility] Work Phone: 8(499)931-388692 [place] [address] 05-07-2023 11:35-0400 Body mass index (BMI) [Ratio] 33.5 kg/m2 [facility] Work Phone: 0(405)511-540392 [place] [address] 05-07-2023 11:35-0400 Body weight 94.2 kg [facility] Work Phone: 7(395)820-149292 [place] [address] 05-04-2023 15:23-0400 Body height 167.64 cm [facility] Work Phone: 5(150)483-095792 [place] [address] 05-04-2023 15:23-0400 Body mass index (BMI) [Ratio] 33.5 kg/m2 [facility] Work Phone: 3(348)994-054192 [place] [address] 05-04-2023 15:23-0400 Body temperature 97.4 [degF] [facility] Work Phone: 9(693)866-304692 [place] [address] 05-04-2023 15:23-0400 Body weight 94.2 kg [facility] Work Phone: 2(863)877-966892 [place] [address] 05-04-2023 15:23-0400 Diastolic blood pressure 69 mm[Hg] [facility] Work Phone: 7(914)803-578592 [place] [address] 05-04-2023 15:23-0400 Heart rate 84 /min [facility] Work Phone: 9(166)826-196992 [place] [address] 05-04-2023 15:23-0400 Inhaled oxygen flow rate 96 L/min [facility] Work Phone: 9(630)267-214292 [place] [address] 05-04-2023 15:23-0400 Respiratory rate 16 /min [facility] Work Phone: 2(267)001-937492 [place] [address] 05-04-2023 15:23-0400 Systolic blood pressure 134 mm[Hg] [facility] Work Phone: 4(478)920-770892 [place] [address] 05-04-2023 14:51-0400 SaO2% (BldA) [Mass fraction] 97 % [facility] Work Phone: 1(394)860-242992 [place] [address] 04-15-2023 13:43-0400 Diastolic blood pressure 58 mm[Hg] [facility] Work Phone: 3(206)551-934492 [place] [address] 04-15-2023 13:43-0400 Heart rate 72 /min [facility] Work Phone: 1(424)488-323392 [place] [address] 04-15-2023 13:43-0400 Respiratory rate 16 /min [facility] Work Phone: 5(278)217-313992 [place] [address] 04-15-2023 13:43-0400 SaO2% (BldA) [Mass fraction] 99 % [facility] Work Phone: 6(927)580-123992 [place] [address] 04-15-2023 13:43-0400 Systolic blood pressure 122 mm[Hg] [facility] Work Phone: 1(203)167-612892 [place] [address] 04-15-2023 11:17-0400 Body mass index (BMI) [Ratio] 29.3 kg/m2 [facility] Work Phone: 1(161)847-561392 [place] [address] 04-15-2023 11:17-0400 Body temperature 97 [degF] [facility] Work Phone: 4(427)879-655192 [place] [address] 04-15-2023 11:17-0400 Body weight 82.4 kg [facility] Work Phone: 9(006)633-326592 [place] [address] 04-14-2023 11:51-0400 Body mass index (BMI) [Ratio] 32.3 kg/m2 [facility] Work Phone: 2(045)744-303592 [place] [address] 04-14-2023 11:51-0400 Body temperature 97.2 [degF] [facility] Work Phone: 2(455)142-228392 [place] [address] 04-14-2023 11:51-0400 Body weight 90.71 kg [facility] Work Phone: 7(293)344-951592 [place] [address] 04-14-2023 11:51-0400 Diastolic blood pressure 92 mm[Hg] [facility] Work Phone: 0(222)192-659692 [address] [place] [id number] 04-14-2023 11:51-0400 Heart rate 102 /min [facility] Work Phone: 4(227)809-230992 [place] [address] 04-14-2023 11:51-0400 Respiratory rate 24 /min [facility] Work Phone: 0(044)429-860392 [place] [address] 04-14-2023 11:51-0400 SaO2% (BldA) [Mass fraction] 100 % [facility] Work Phone: 6(760)204-058392 [place] [address] 04-14-2023 11:51-0400 Systolic blood pressure 131 mm[Hg] [facility] Work Phone: 3(191)222-466092 [place] [address] 04-13-2023 10:36-0400 Diastolic blood pressure 78 mm[Hg] [facility] Work Phone: 9(610)334-866392 [place] [address] 04-13-2023 10:36-0400 Heart rate 64 /min [facility] Work Phone: 8(238)733-318192 [place] [address] 04-13-2023 10:36-0400 Respiratory rate 14 /min [facility] Work Phone: 9(512)882-885092 [place] [address] 04-13-2023 10:36-0400 SaO2% (BldA) [Mass fraction] 98 % [facility] Work Phone: 7(071)864-930692 [place] [address] 04-13-2023 10:36-0400 Systolic blood pressure 108 mm[Hg] [facility] Work Phone: 6(241)709-950492 [place] [address] 04-13-2023 08:59-0400 Body mass index (BMI) [Ratio] 32.3 kg/m2 [facility] Work Phone: 0(267)482-270392 [place] [address] 04-13-2023 08:59-0400 Body temperature 95.9 [degF] [facility] Work Phone: 4(714)760-082092 [place] [address] 04-13-2023 08:59-0400 Body weight 90.71 kg [facility] Work Phone: 3(326)658-707992 [place] [address] 03-06-2023 08:15-0400 Body height 167.64 cm [facility] Work Phone: 6(136)940-584592 [place] [address] 03-06-2023 08:15-0400 Body mass index (BMI) [Ratio] 32.5 kg/m2 [facility] Work Phone: 3(746)549-903692 [place] [address] 03-06-2023 08:15-0400 Body temperature 97 [degF] [facility] Work Phone: 6(501)690-128592 [place] [address] 03-06-2023 08:15-0400 Body weight 91.3 kg [facility] Work Phone: 5(179)248-710692 [place] [address] 03-06-2023 08:15-0400 Diastolic blood pressure 113 mm[Hg] [facility] Work Phone: 4(320)547-695692 [place] [address] 03-06-2023 08:15-0400 Heart rate 100 /min [facility] Work Phone: 2(611)890-199992 [place] [address] 03-06-2023 08:15-0400 Respiratory rate 14 /min [facility] Work Phone: 6(467)269-999392 [place] [address] 03-06-2023 08:15-0400 SaO2% (BldA) [Mass fraction] 100 % [facility] Work Phone: [facility] 03-06-2023 08:15-0400 Systolic blood pressure 153 mm[Hg] [facility] Work Phone: [facility] 03-01-2023 10:40-0400 Body height 170.2 cm Dewayne Doran MD Work Phone: [facility] 03-01-2023 10:40-0400 Body temperature 98.2 [degF] Dewayne Doran MD Work Phone: [facility] 03-01-2023 10:40-0400 Body weight 90.1 kg Dewayne Doran MD Work Phone: [facility] 03-01-2023 10:40-0400 Diastolic blood pressure 87 mm[Hg] Dewayne Doran MD Work Phone: [facility] 03-01-2023 10:40-0400 Heart rate 109 /min Dewayne Doran MD Work Phone: [facility] 03-01-2023 10:40-0400 SaO2% (BldA) [Mass fraction] 97 % Dewayne Doran MD Work Phone: [facility] 03-01-2023 10:40-0400 Systolic blood pressure 119 mm[Hg] Dewayne Doran MD Work Phone: [facility] 02-26-2023 03:54-0400 Diastolic blood pressure 63 mm[Hg] [facility] Work Phone: [facility] 02-26-2023 03:54-0400 Heart rate 68 /min [facility] Work Phone: [facility] 02-26-2023 03:54-0400 Respiratory rate 15 /min [facility] Work Phone: [facility] 02-26-2023 03:54-0400 SaO2% (BldA) [Mass fraction] 97 % [facility] Work Phone: [facility] 02-26-2023 03:54-0400 Systolic blood pressure 107 mm[Hg] [facility] Work Phone: 1(649)089-722692 [place] [address] 02-25-2023 23:59-0400 Body height 167.64 cm [facility] Work Phone: 7(276)208-563092 [place] [address] 02-25-2023 23:59-0400 Body mass index (BMI) [Ratio] 31.8 kg/m2 [facility] Work Phone: 5(992)764-449492 [place] [address] 02-25-2023 23:59-0400 Body temperature 98 [degF] [facility] Work Phone: 3(509)709-343792 [place] [address] 02-25-2023 23:59-0400 Body weight 89.44 kg [facility] Work Phone: 7(500)005-162592 [place] [address] 02-24-2023 12:55-0400 Diastolic blood pressure 93 mm[Hg] [facility] Work Phone: 2(991)233-228292 [place] [address] 02-24-2023 12:55-0400 Heart rate 85 /min [facility] Work Phone: 4(386)226-743892 [place] [address] 02-24-2023 12:55-0400 Respiratory rate 18 /min [facility] Work Phone: 4(285)369-955392 [place] [address] 02-24-2023 12:55-0400 SaO2% (BldA) [Mass fraction] 96 % [facility] Work Phone: 5(848)778-203292 [place] [address] 02-24-2023 12:55-0400 Systolic blood pressure 124 mm[Hg] [facility] Work Phone: 2(318)802-414692 [place] [address] 02-24-2023 11:32-0400 Body mass index (BMI) [Ratio] 32.4 kg/m2 [facility] Work Phone: 9(994)331-514792 [place] [address] 02-24-2023 11:32-0400 Body temperature 97.8 [degF] [facility] Work Phone: 9(502)477-122692 [place] [address] 02-24-2023 11:32-0400 Body weight 91.22 kg [facility] Work Phone: 2(739)880-735692 [place] [address] 02-23-2023 09:59-0400 Body temperature 97.11 [degF] Pilar Magdaleno HEATSET WINDER OPERATOR[employer] Work Phone: [facility] 02-23-2023 09:59-0400 Body weight 91.17 kg Pilar Magdaleno HEATSET WINDER OPERATOR[employer] Work Phone: [facility] 02-23-2023 09:59-0400 Diastolic blood pressure 74 mm[Hg] Pilar Magdaleno HEATSET WINDER OPERATOR[employer] Work Phone: [facility] 02-23-2023 09:59-0400 Heart rate 88 /min Pilar Magdaleno HEATSET WINDER OPERATOR[employer] Work Phone: [facility] 02-23-2023 09:59-0400 Respiratory rate 16 /min Pilar Magdaleno HEATSET WINDER OPERATOR[employer] Work Phone: [facility] 02-23-2023 09:59-0400 Systolic blood pressure 118 mm[Hg] Pilar Magdaleno APRN.[employer] Work Phone: [facility] 02-11-2023 15:17-0400 Body temperature 97.88 [degF] HELENA SILVERMAN HEATSET WINDER OPERATOR-[employer] [facility] 02-11-2023 15:17-0400 Diastolic Blood Pressure Non-Invasive 86 1 HELENA SILVERMAN HEATSET WINDER OPERATOR[employer] [facility] 02-11-2023 15:17-0400 Heart rate 67 /min HELENA SILVERMAN APRN-[employer] [facility] 02-11-2023 15:17-0400 Reason For Taking VItal Signs HELENA SILVERMAN APRN-[employer] [facility] 02-11-2023 15:17-0400 Systolic Blood Pressure Non-Invasive 137 1 HELENA SILVERMAN HEATSET WINDER OPERATOR[employer] [facility] 02-11-2023 11:58-0400 Body temperature 97.7 [degF] HELENA SILVERMAN HEATSET WINDER OPERATOR[employer] [facility] 02-11-2023 11:58-0400 Diastolic Blood Pressure Non-Invasive 94 1 HELENA SILVERMAN HEATSET WINDER OPERATOR[employer] [facility] 02-11-2023 11:58-0400 Heart rate 68 /min HELENA COLBYGABRIEL HEATSET WINDER OPERATOR-[employer] [facility] 02-11-2023 11:58-0400 Reason For Taking VItal Signs HELENA SILVERMAN HEATSET WINDER OPERATOR[employer] [facility] 02-11-2023 11:58-0400 Respiratory rate 18 /min HELENA SILVERMAN HEATSET WINDER OPERATOR[employer] [facility] 02-11-2023 11:58-0400 Systolic Blood Pressure Non-Invasive 138 1 HELENA HERRERA HEATSET WINDER OPERATOR-[employer] [facility] 02-11-2023 07:52-0400 Body temperature 98.06 [degF] HELENA SILVERMAN HEATSET WINDER OPERATOR[employer] [facility] 02-11-2023 07:52-0400 Diastolic Blood Pressure Non-Invasive 82 1 HELENACharan SILVERMAN HEATSET WINDER OPERATOR-[employer] [facility] 02-11-2023 07:52-0400 Heart rate 75 /min HELENASHERON SILVERMAN HEATSET WINDER OPERATOR-[employer] [facility] 02-11-2023 07:52-0400 Reason For Taking VItal Signs HELENA HERRERA HEATSET WINDER OPERATOR-[employer] [facility] 02-11-2023 07:52-0400 Respiratory rate 18 /min HELENA HERRERA HEATSET WINDER OPERATOR[employer] [facility] 02-11-2023 07:52-0400 Systolic Blood Pressure Non-Invasive 127 1 HELENA SILVERMAN APRN-[employer] [facility] 02-11-2023 05:25-0400 Respiratory rate 18 /min HELENA SILVERMAN APRN-[employer] [facility] 02-11-2023 01:49-0400 Body height 169.9 cm HELENA SILVERMAN HEATSET WINDER OPERATOR-[employer] [facility] 02-11-2023 01:49-0400 Body weight 94.4 kg HELENA SILVERMAN HEATSET WINDER OPERATOR[employer] [facility] 02-11-2023 01:49-0400 Body weight 32.7 kg/m2 HELENA SILVERMAN HEATSET WINDER OPERATOR[employer] [facility] 02-10-2023 23:34-0400 Blood Pressure Cuff Size HELENA SILVERMAN HEATSET WINDER OPERATOR[employer] [facility] 02-10-2023 23:34-0400 Blood Pressure Location HELENA SILVERMAN HEATSET WINDER OPERATOR[employer] [facility] 02-10-2023 23:34-0400 Blood Pressure Method HELENA SILVERMAN HEATSET WINDER OPERATOR[employer] [facility] 02-10-2023 23:34-0400 Body height 167.6 cm HELENA SILVERMAN HEATSET WINDER OPERATOR[employer] [facility] 02-10-2023 23:34-0400 Body temperature 98.24 [degF] HELENA SILVERMAN HEATSET WINDER OPERATOR[employer] [facility] 02-10-2023 23:34-0400 Body weight 97.7 kg HELENA SILVERMAN HEATSET WINDER OPERATOR[employer] [facility] 02-10-2023 23:34-0400 Heart rate 90 /min HELENA SILVERMAN HEATSET WINDER OPERATOR[employer] [facility] 02-08-2023 15:46-0400 Heart rate 97 /min [facility] Work Phone: 9(360)669-958592 [place] [address] 02-08-2023 15:46-0400 Respiratory rate 21 /min [facility] Work Phone: 3(423)054-405492 [place] [address] 02-08-2023 15:46-0400 SaO2% (BldA) [Mass fraction] 96 % [facility] Work Phone: 2(386)624-902792 [place] [address] 02-08-2023 11:06-0400 Body height 167.64 cm [facility] Work Phone: 0(438)457-892592 [place] [address] 02-08-2023 11:06-0400 Body mass index (BMI) [Ratio] 34 kg/m2 [facility] Work Phone: 7(990)363-989892 [place] [address] 02-08-2023 11:06-0400 Body temperature 96 [degF] [facility] Work Phone: 9(139)863-884692 [place] [address] 02-08-2023 11:06-0400 Body weight 95.52 kg [facility] Work Phone: 0(359)339-867392 [place] [address] 02-08-2023 11:06-0400 Diastolic blood pressure 90 mm[Hg] [facility] Work Phone: 1(655)817-963692 [place] [address] 02-08-2023 11:06-0400 Systolic blood pressure 149 mm[Hg] [facility] Work Phone: 4(945)308-912392 [place] [address] 01-25-2023 11:35-0400 Body height 167.64 cm [facility] Work Phone: 4(589)194-637192 [place] [address] 01-25-2023 11:35-0400 Body mass index (BMI) [Ratio] 35.2 kg/m2 [facility] Work Phone: 6(947)317-217292 [place] [address] 01-25-2023 11:35-0400 Body temperature 96 [degF] [facility] Work Phone: 5(869)581-283192 [place] [address] 01-25-2023 11:35-0400 Body weight 98.8 kg [facility] Work Phone: [facility] 01-25-2023 11:35-0400 Diastolic blood pressure 87 mm[Hg] [facility] Work Phone: [facility] 01-25-2023 11:35-0400 Heart rate 86 /min [facility] Work Phone: 9(208)860-201522 [place] [address] 01-25-2023 11:35-0400 Respiratory rate 14 /min [facility] Work Phone: 5(860)630-966322 [place] [address] 01-25-2023 11:35-0400 SaO2% (BldA) [Mass fraction] 100 % [facility] Work Phone: [facility] 01-25-2023 11:35-0400 Systolic blood pressure 123 mm[Hg] [facility] Work Phone: [facility] 01-24-2023 12:38-0400 Diastolic blood pressure 74 mm[Hg] Abdirizak Ramirez MD Work Phone: [facility] 01-24-2023 12:38-0400 Heart rate 70 /min Abdirizak Ramirez MD Work Phone: [facility] 01-24-2023 12:38-0400 SaO2% (BldA) [Mass fraction] 98 % Abdirizak Ramirez MD Work Phone: [facility] 01-24-2023 12:38-0400 Systolic blood pressure 129 mm[Hg] Abdirizak Ramirez MD Work Phone: [facility] 01-24-2023 12:09-0400 Respiratory rate 15 /min Abdirizak Ramirez MD Work Phone: [facility] 01-24-2023 10:28-0400 Body height 167.6 cm Abdirizak Ramirez MD Work Phone: [facility] 01-24-2023 10:28-0400 Body mass index (BMI) [Ratio] 37.12 kg/m2 Abdirizak Ramirez MD Work Phone: [facility] 01-24-2023 10:28-0400 Body temperature 97.3 [degF] Abdirizak Ramirez MD Work Phone: [facility] 01-24-2023 10:28-0400 Body weight 104.33 kg Abdirizak Ramirez MD Work Phone: [facility] 01-15-2023 15:08-0400 Body temperature 97.9 [degF] [facility] Work Phone: 4(055)288-421192 [place] [address] 01-15-2023 15:08-0400 Diastolic blood pressure 102 mm[Hg] [facility] Work Phone: 6(425)372-945192 [place] [address] 01-15-2023 15:08-0400 Heart rate 73 /min [facility] Work Phone: 8(698)959-995392 [place] [address] 01-15-2023 15:08-0400 Respiratory rate 16 /min [facility] Work Phone: 3(467)106-490392 [place] [address] 01-15-2023 15:08-0400 SaO2% (BldA) [Mass fraction] 97 % [facility] Work Phone: 2(869)364-915292 [place] [address] 01-15-2023 15:08-0400 Systolic blood pressure 168 mm[Hg] [facility] Work Phone: 0(331)335-258792 [place] [address] 01-15-2023 12:58-0400 Body height 167.64 cm [facility] Work Phone: 6(591)625-247892 [place] [address] 01-15-2023 12:58-0400 Body weight 104 kg [facility] Work Phone: 4(126)129-936792 [place] [address] 01-14-2023 16:21-0400 Body mass index (BMI) [Ratio] 37 kg/m2 [facility] Work Phone: 9(229)201-865392 [place] [address] 01-13-2023 10:20-0400 Respiratory rate 16 /min [facility] Work Phone: 1(244)614-730792 [place] [address] 01-13-2023 06:21-0400 Body mass index (BMI) [Ratio] 37.6 kg/m2 [facility] Work Phone: 5(913)006-164222 [place] [address] 01-13-2023 06:21-0400 Body temperature 97 [degF] [facility] Work Phone: 0(661)639-043222 [place] [address] 01-13-2023 06:21-0400 Body weight 105.9 kg [facility] Work Phone: 6(951)990-930306 [address] 01-13-2023 06:21-0400 Diastolic blood pressure 106 mm[Hg] [facility] Work Phone: 9(436)818-449292 [place] [address] 01-13-2023 06:21-0400 Heart rate 99 /min [facility] Work Phone: 5(024)518-841092 [place] [address] 01-13-2023 06:21-0400 SaO2% (BldA) [Mass fraction] 99 % [facility] Work Phone: 4(905)484-841722 [place] [address] 01-13-2023 06:21-0400 Systolic blood pressure 169 mm[Hg] [facility] Work Phone: 6(937)999-353206 [address] 01-12-2023 13:20-0400 Diastolic blood pressure 101 mm[Hg] [facility] 01-12-2023 13:20-0400 Heart rate 70 /min [facility] 01-12-2023 13:20-0400 Respiratory rate 14 /min [facility] 01-12-2023 13:20-0400 SaO2% (BldA) [Mass fraction] 98 % [facility] 01-12-2023 13:20-0400 Systolic blood pressure 143 mm[Hg] [facility] 01-12-2023 10:45-0400 Body height 167.[address] [facility] 01-12-2023 10:45-0400 Body mass index (BMI) [Ratio] 37.6 kg/m2 [facility] 01-12-2023 10:45-0400 Body temperature 95.2 [degF] [facility] 01-12-2023 10:45-0400 Body weight 105.[address] [facility] 01-12-2023 02:13-0400 Diastolic blood pressure 87 mm[Hg] [facility] 01-12-2023 02:13-0400 Heart rate 84 /min [facility] 01-12-2023 02:13-0400 Respiratory rate 18 /min [facility] 01-12-2023 02:13-0400 SaO2% (BldA) [Mass fraction] 99 % [facility] 01-12-2023 02:13-0400 Systolic blood pressure 141 mm[Hg] [facility] 01-11-2023 22:58-0400 Body height 167.[address] [facility] 01-11-2023 22:58-0400 Body mass index (BMI) [Ratio] 33 kg/m2 [facility] 01-11-2023 22:58-0400 Body temperature 96.8 [degF] [facility] 01-11-2023 22:58-0400 Body weight 92.[address] [facility] 01-10-2023 17:27-0400 Body temperature 98.78 [degF] ESSIE DOWNS DO [facility] 01-10-2023 17:27-0400 Diastolic Blood Pressure Non-Invasive 80 1 ESSIE LAWLERT [facility] 01-10-2023 17:27-0400 Heart rate 78 /min ESSIE DOWNS DO [facility] 01-10-2023 17:27-0400 Respiratory rate 16 /min ESSIE DOWNS DO [facility] 01-10-2023 17:27-0400 Systolic Blood Pressure Non-Invasive 148 1 ESSIE LAWLERT [facility] 01-10-2023 16:16-0400 Body temperature 98.78 [degF] ESSIE LAWLERT [facility] 01-10-2023 15:43-0400 Diastolic Blood Pressure Non-Invasive 89 1 ESSIE LAWLERT DO [facility] 01-10-2023 15:43-0400 Heart rate 77 /min ESSIE WASHINGTONTHE FASHIONT DO [facility] 01-10-2023 15:43-0400 Respiratory rate 16 /min ESSIE FROMTHE FASHIONT DO [facility] 01-10-2023 15:43-0400 Systolic Blood Pressure Non-Invasive 144 1 ESSIE WASHINGTONTHE FASHIONT DO [facility] 01-10-2023 15:09-0400 Heart rate 74 /min ESSIE WASHINGTONTHE FASHION[employer] [facility] 01-10-2023 14:32-0400 Respiratory rate 12 /min ESSIE WASHINGTONTHE FASH[employer] [facility] 01-10-2023 13:47-0400 Body temperature 98.78 [degF] [employer]IE [employer] [facility] 01-10-2023 13:47-0400 Diastolic Blood Pressure Non-Invasive 92 1 [employer]SSIE [employer] [facility] 01-10-2023 13:47-0400 Systolic Blood Pressure Non-Invasive 158 1 ESSIE [employer] [facility] 01-09-2023 15:21-0400 Diastolic blood pressure 70 mm[Hg] [facility] 01-09-2023 15:21-0400 Heart rate 84 /min [facility] 01-09-2023 15:21-0400 Respiratory rate 16 /min [facility] 01-09-2023 15:21-0400 SaO2% (BldA) [Mass fraction] 97 % [facility] 01-09-2023 15:21-0400 Systolic blood pressure 139 mm[Hg] [facility] 01-09-2023 11:53-0400 Body height 167.[address] [facility] 01-09-2023 11:53-0400 Body mass index (BMI) [Ratio] 41.1 kg/m2 [facility] 01-09-2023 11:53-0400 Body temperature 98.2 [degF] [facility] 01-09-2023 11:53-0400 Body weight 115.[address] [facility] 01-07-2023 14:18-0400 Respiratory rate 14 /min [facility] 01-07-2023 12:01-0400 Diastolic blood pressure 99 mm[Hg] [facility] 01-07-2023 12:01-0400 Systolic blood pressure 154 mm[Hg] [facility] 01-07-2023 08:38-0400 Body height 167.[address] [facility] 01-07-2023 08:38-0400 Body mass index (BMI) [Ratio] 34.5 kg/m2 [facility] 01-07-2023 08:38-0400 Body temperature 98.7 [degF] [facility] 01-07-2023 08:38-0400 Body weight 97.[address] [facility] 01-07-2023 08:38-0400 Heart rate 82 /min [facility] 01-07-2023 08:38-0400 SaO2% (BldA) [Mass fraction] 99 % [facility] 11-19-2022 09:26-0400 Body temperature 98.7 [degF] [facility] 11-19-2022 09:26-0400 Diastolic blood pressure 81 mm[Hg] [facility] 11-19-2022 09:26-0400 Heart rate 101 /min [facility] 11-19-2022 09:26-0400 Respiratory rate 14 /min [facility] 11-19-2022 09:26-0400 SaO2% (BldA) [Mass fraction] 99 % [facility] 11-19-2022 09:26-0400 Systolic blood pressure 131 mm[Hg] [facility] 11-19-2022 09:24-0400 Body mass index (BMI) [Ratio] 39.3 kg/m2 [facility] 11-19-2022 09:24-0400 Body weight 110.[address] [facility] 11-17-2022 08:43-0400 Body temperature 97.5 [degF] [facility] HEATSET WINDER OPERATOR.[employer] Work Phone: [facility] 11-17-2022 08:43-0400 Body weight 110.22 kg [facility] [employer]ATSET WINDER OPERATOR.[employer] Work Phone: [facility] 11-17-2022 08:43-0400 Diastolic blood pressure 72 mm[Hg] [facility] HEATSET WINDER OPERATOR.[employer] Work Phone: [facility] 11-17-2022 08:43-0400 Heart rate 108 /min [facility] HEATSET WINDER OPERATOR.[employer] Work Phone: [facility] 11-17-2022 08:43-0400 Respiratory rate 16 /min [facility] HEATSET WINDER OPERATOR.[employer] Work Phone: [facility] 11-17-2022 08:43-0400 SaO2% (BldA) [Mass fraction] 97 % [facility] HEATSET WINDER OPERATOR.[employer] Work Phone: [facility] 11-17-2022 08:43-0400 Systolic blood pressure 120 mm[Hg] [facility] HEATSET WINDER OPERATOR.[employer] Work Phone: [facility] 10-08-2022 08:44-0400 Body temperature 97 [degF] Shamika Athy PA-C Work Phone: [facility] 10-08-2022 08:44-0400 Body weight 109.14 kg Shamika Athy PA-C Work Phone: [facility] 10-08-2022 08:44-0400 Diastolic blood pressure 82 mm[Hg] Shamika Athy PA-C Work Phone: [facility] 10-08-2022 08:44-0400 Heart rate 94 /min Shamika Athy PA-C Work Phone: [facility] 10-08-2022 08:44-0400 Respiratory rate 16 /min Shamika Athy PA-C Work Phone: [facility] 10-08-2022 08:44-0400 SaO2% (BldA) [Mass fraction] 100 % Shamika GRADY-C Work Phone: [facility] 10-08-2022 08:44-0400 Systolic blood pressure 112 mm[Hg] Shamika GRADY-C Work Phone: [facility] 08-15-2022 13:46-0500 Body temperature 98.6 [degF] Dr. Sophy Gibbons Work Phone: 0(269)543-814422 [place] [address] 08-15-2022 13:46-0500 Diastolic blood pressure 95 mm[Hg] Dr. Sophy Gibbons Work Phone: 3(068)448-163092 [place] [address] 08-15-2022 13:46-0500 Heart rate 87 /min Dr. Sophy Gibbons Work Phone: 2(680)849-640092 [place] [address] 08-15-2022 13:46-0500 Respiratory rate 16 /min Dr. Sophy Gibbons Work Phone: 2(513)031-694806 [address] 08-15-2022 13:46-0500 SaO2% (BldA) [Mass fraction] 99 % Dr. Sophy Gibbons Work Phone: 3(450)578-505092 [place] [address] 08-15-2022 13:46-0500 Systolic blood pressure 130 mm[Hg] Dr. Sophy Gibbons Work Phone: 1(037)704-192892 [place] [address] 08-15-2022 05:43-0500 Body weight 107.[address] Sophy Gibbons Work Phone: 4(863)409-470206 [address] 08-13-2022 10:58-0500 Body height 167.[address] Sophy Gibbons Work Phone: 4(681)533-191192 [place] [address] 08-12-2022 22:34-0500 Body mass index (BMI) [Ratio] 37.9 kg/m2 Dr. Sophy Gibbons Work Phone: 5(032)380-267992 [place] [address] 08-12-2022 22:03-0500 Body temperature 98 [degF] Dr. Sophy Gibbons Work Phone: 7(770)643-272092 [place] [address] 08-12-2022 22:03-0500 Diastolic blood pressure 74 mm[Hg] Dr. Sophy Gibbons Work Phone: 7(746)868-819592 [place] [address] 08-12-2022 22:03-0500 Heart rate 82 /min Dr. Sophy Gibbons Work Phone: 1(936)428-053892 [place] [address] 08-12-2022 22:03-0500 Respiratory rate 15 /min Dr. Sophy Gibbons Work Phone: 6(190)873-718892 [place] [address] 08-12-2022 22:03-0500 SaO2% (BldA) [Mass fraction] 99 % Dr. Sophy Gibbons Work Phone: 0(468)019-122692 [place] [address] 08-12-2022 22:03-0500 Systolic blood pressure 118 mm[Hg] Dr. Sophy Gibbons Work Phone: 1(390)712-411792 [place] [address] 08-12-2022 15:27-0500 Body height 167.[address] Sophy Gibbons Work Phone: 9(359)596-505392 [place] [address] 08-12-2022 15:27-0500 Body mass index (BMI) [Ratio] 37.9 kg/m2 Dr. Sophy Gibbons Work Phone: 5(192)065-600992 [place] [address] 08-12-2022 15:27-0500 Body weight 106.[address] Sophy Gibbons Work Phone: 9(260)247-328292 [place] [address] 06-29-2022 08:39-0500 Body temperature 97.6 [degF] No Primary Care Physician [facility] 06-29-2022 08:39-0500 Diastolic blood pressure 90 mm[Hg] No Primary Care Physician [facility] 06-29-2022 08:39-0500 Heart rate 81 /min No Primary Care Physician [facility] 06-29-2022 08:39-0500 Respiratory rate 16 /min No Primary Care Physician [facility] 06-29-2022 08:39-0500 SaO2% (BldA) [Mass fraction] 99 % No Primary Care Physician [facility] 06-29-2022 08:39-0500 Systolic blood pressure 130 mm[Hg] No Primary Care Physician [facility] 06-26-2022 06:09-0500 Body height 167.64 cm No Primary Care Physician [facility] Work Phone: 06-26-2022 06:09-0500 Body mass index (BMI) [Ratio] 38.1 kg/m2 No Primary Care Physician [facility] 06-26-2022 06:09-0500 Body weight 107.1 kg No Primary Care Physician [facility] 06-25-2022 03:57-0500 Body temperature 98.1 [degF] No Primary Care Physician [facility] Work Phone: 06-25-2022 03:57-0500 Diastolic blood pressure 99 mm[Hg] No Primary Care Physician [facility] Work Phone: 06-25-2022 03:57-0500 Heart rate 96 /min No Primary Care Physician [facility] Work Phone: 06-25-2022 03:57-0500 Respiratory rate 18 /min No Primary Care Physician [facility] Work Phone: 06-25-2022 03:57-0500 SaO2% (BldA) [Mass fraction] 97 % No Primary Care Physician [facility] Work Phone: 06-25-2022 03:57-0500 Systolic blood pressure 134 mm[Hg] No Primary Care Physician [facility] Work Phone: 06-24-2022 16:48-0500 Body height 167.64 cm No Primary Care Physician [facility] Work Phone: 06-24-2022 16:48-0500 Body mass index (BMI) [Ratio] 38 kg/m2 No Primary Care Physician [facility] Work Phone: 06-24-2022 16:48-0500 Body weight 107.04 kg No Primary Care Physician [facility] Work Phone: 06-24-2022 15:30-0500 Body temperature 98.9 [degF] No Primary Care Physician [facility] Work Phone: 06-24-2022 15:30-0500 Diastolic blood pressure 99 mm[Hg] No Primary Care Physician [facility] Work Phone: 06-24-2022 15:30-0500 Heart rate 97 /min No Primary Care Physician [facility] Work Phone: 06-24-2022 15:30-0500 Respiratory rate 15 /min No Primary Care Physician [facility] Work Phone: 06-24-2022 15:30-0500 SaO2% (BldA) [Mass fraction] 100 % No Primary Care Physician [facility] Work Phone: 06-24-2022 15:30-0500 Systolic blood pressure 137 mm[Hg] No Primary Care Physician [facility] Work Phone: 06-24-2022 11:12-0500 Body height 167.64 cm No Primary Care Physician [facility] Work Phone: 06-24-2022 11:12-0500 Body mass index (BMI) [Ratio] 35.5 kg/m2 No Primary Care Physician [facility] Work Phone: 06-24-2022 11:12-0500 Body weight 99.79 kg No Primary Care Physician [facility] Work Phone: 04-09-2022 16:15-0400 Body temperature 98.2 [degF] No Primary Care Physician [facility] Work Phone: 04-09-2022 16:15-0400 Diastolic blood pressure 87 mm[Hg] No Primary Care Physician [facility] Work Phone: 04-09-2022 16:15-0400 Heart rate 89 /min No Primary Care Physician [facility] Work Phone: 04-09-2022 16:15-0400 Respiratory rate 18 /min No Primary Care Physician [facility] Work Phone: 04-09-2022 16:15-0400 SaO2% (BldA) [Mass fraction] 99 % No Primary Care Physician [facility] Work Phone: 04-09-2022 16:15-0400 Systolic blood pressure 136 mm[Hg] No Primary Care Physician [facility] Work Phone: 04-08-2022 11:30-0400 Body height 167.64 cm No Primary Care Physician [facility] Work Phone: 04-08-2022 11:30-0400 Body weight 96.6 kg No Primary Care Physician [facility] Work Phone: 04-06-2022 17:48-0400 Body mass index (BMI) [Ratio] 34.3 kg/m2 No Primary Care Physician [facility] Work Phone: 04-06-2022 15:39-0400 Body temperature 100.1 [degF] No Primary Care Physician [facility] Work Phone: 04-06-2022 15:39-0400 Diastolic blood pressure 79 mm[Hg] No Primary Care Physician [facility] Work Phone: 04-06-2022 15:39-0400 Heart rate 114 /min No Primary Care Physician [facility] Work Phone: 04-06-2022 15:39-0400 Respiratory rate 20 /min No Primary Care Physician [facility] Work Phone: 04-06-2022 15:39-0400 SaO2% (BldA) [Mass fraction] 98 % No Primary Care Physician [facility] Work Phone: 04-06-2022 15:39-0400 Systolic blood pressure 136 mm[Hg] No Primary Care Physician [facility] Work Phone: 04-06-2022 12:45-0400 Body height 167.64 cm No Primary Care Physician [facility] Work Phone: 04-06-2022 12:45-0400 Body mass index (BMI) [Ratio] 34.7 kg/m2 No Primary Care Physician [facility] Work Phone: 04-06-2022 12:45-0400 Body weight 97.5 kg No Primary Care Physician [facility] Work Phone: 04-05-2022 16:06-0400 Diastolic blood pressure 95 mm[Hg] No Primary Care Physician [facility] Work Phone: 04-05-2022 16:06-0400 Heart rate 103 /min No Primary Care Physician [facility] Work Phone: 04-05-2022 16:06-0400 Respiratory rate 16 /min No Primary Care Physician [facility] Work Phone: 04-05-2022 16:06-0400 SaO2% (BldA) [Mass fraction] 98 % No Primary Care Physician [facility] Work Phone: 04-05-2022 16:06-0400 Systolic blood pressure 127 mm[Hg] No Primary Care Physician [facility] Work Phone: 04-05-2022 11:53-0400 Body temperature 98 [degF] No Primary Care Physician [facility] Work Phone: 04-05-2022 11:50-0400 Body height 167.64 cm No Primary Care Physician [facility] Work Phone: 04-05-2022 11:50-0400 Body mass index (BMI) [Ratio] 34.4 kg/m2 No Primary Care Physician [facility] Work Phone: 04-05-2022 11:50-0400 Body weight 96.8 kg No Primary Care Physician [facility] Work Phone: 03-23-2022 12:28-0400 Body temperature 97 [degF] Sid Bravo MD Work Phone: [facility] 03-23-2022 12:28-0400 Body weight 97.07 kg Sid Bravo MD Work Phone: [facility] 03-23-2022 12:28-0400 Diastolic blood pressure 98 mm[Hg] Sid Bravo MD Work Phone: [facility] 03-23-2022 12:28-0400 Heart rate 105 /min Sid Bravo MD Work Phone: [facility] 03-23-2022 12:28-0400 Respiratory rate 20 /min Sid Bravo MD Work Phone: [facility] 03-23-2022 12:28-0400 SaO2% (BldA) [Mass fraction] 93 % Sid Bravo MD Work Phone: [facility] 03-23-2022 12:28-0400 Systolic blood pressure 130 mm[Hg] Sid Bravo MD Work Phone: [facility] 02-02-2022 09:33-0400 Body temperature 97.2 [degF] Alyssa Yeni HEATSET WINDER OPERATOR[employer] Work Phone: [facility] 02-02-2022 09:33-0400 Body weight 92.53 kg Alyssa Yeni HEATSET WINDER OPERATOR.[employer] Work Phone: [facility] 02-02-2022 09:33-0400 Diastolic blood pressure 72 mm[Hg] Alyssa Yeni HEATSET WINDER OPERATOR.[employer] Work Phone: [facility] 02-02-2022 09:33-0400 Heart rate 74 /min Alyssa Yeni HEATSET WINDER OPERATOR.[employer] Work Phone: [facility] 02-02-2022 09:33-0400 Respiratory rate 16 /min Alyssa Yeni HEATSET WINDER OPERATOR.[employer] Work Phone: [facility] 02-02-2022 09:33-0400 SaO2% (BldA) [Mass fraction] 99 % Alyssa Yeni HEATSET WINDER OPERATOR.[employer] Work Phone: [facility] 02-02-2022 09:33-0400 Systolic blood pressure 120 mm[Hg] Alyssa Yeni HEATSET WINDER OPERATOR.[employer] Work Phone: [facility] 02-01-2022 17:18-0400 Diastolic blood pressure 100 mm[Hg] No Primary Care Physician [facility] Work Phone: 02-01-2022 17:18-0400 Heart rate 66 /min No Primary Care Physician [facility] Work Phone: 02-01-2022 17:18-0400 Respiratory rate 18 /min No Primary Care Physician [facility] Work Phone: 02-01-2022 17:18-0400 SaO2% (BldA) [Mass fraction] 97 % No Primary Care Physician [facility] Work Phone: 02-01-2022 17:18-0400 Systolic blood pressure 145 mm[Hg] No Primary Care Physician [facility] Work Phone: 02-01-2022 12:42-0400 Body height 167.64 cm No Primary Care Physician [facility] Work Phone: 02-01-2022 12:42-0400 Body mass index (BMI) [Ratio] 32.3 kg/m2 No Primary Care Physician [facility] Work Phone: 02-01-2022 12:42-0400 Body temperature 96.3 [degF] No Primary Care Physician [facility] Work Phone: 02-01-2022 12:42-0400 Body weight 90.71 kg No Primary Care Physician [facility] Work Phone: 01-26-2022 12:31-0400 Body height 167.[address] [facility] Work Phone: 01-26-2022 12:31-0400 Body mass index (BMI) [Ratio] 32.6 kg/m2 [facility] Work Phone: 01-26-2022 12:31-0400 Body temperature 98.4 [degF] [facility] Work Phone: 01-26-2022 12:31-0400 Body weight 91.[address] [facility] Work Phone: 01-26-2022 12:31-0400 Diastolic blood pressure 108 mm[Hg] [facility] Work Phone: 01-26-2022 12:31-0400 Heart rate 94 /min [facility] Work Phone: 01-26-2022 12:31-0400 Respiratory rate 22 /min [facility] Work Phone: 01-26-2022 12:31-0400 SaO2% (BldA) [Mass fraction] 99 % [facility] Work Phone: 01-26-2022 12:31-0400 Systolic blood pressure 154 mm[Hg] [facility] Work Phone: 01-23-2022 18:18-0400 Diastolic blood pressure 74 mm[Hg] [facility] Work Phone: 01-23-2022 18:18-0400 Respiratory rate 18 /min [facility] Work Phone: 01-23-2022 18:18-0400 Systolic blood pressure 122 mm[Hg] [facility] Work Phone: 01-23-2022 16:02-0400 Body height 167.[address] [facility] Work Phone: 01-23-2022 16:02-0400 Body mass index (BMI) [Ratio] 33.9 kg/m2 [facility] Work Phone: 01-23-2022 16:02-0400 Body temperature 97.6 [degF] [facility] Work Phone: 01-23-2022 16:02-0400 Body weight 95.[address] [facility] Work Phone: 01-23-2022 16:02-0400 Heart rate 99 /min [facility] Work Phone: 01-23-2022 16:02-0400 SaO2% (BldA) [Mass fraction] 100 % [facility] Work Phone: 01-22-2022 23:45-0400 Heart rate 91 /min [facility] Work Phone: 01-22-2022 23:45-0400 Respiratory rate 16 /min [facility] Work Phone: 01-22-2022 23:45-0400 SaO2% (BldA) [Mass fraction] 98 % [facility] Work Phone: 01-22-2022 21:26-0400 Body height 167.[address] [facility] Work Phone: 01-22-2022 21:26-0400 Body mass index (BMI) [Ratio] 33.9 kg/m2 [facility] Work Phone: 01-22-2022 21:26-0400 Body temperature 97.8 [degF] [facility] Work Phone: 01-22-2022 21:26-0400 Body weight 95.[address] [facility] Work Phone: 01-22-2022 21:26-0400 Diastolic blood pressure 97 mm[Hg] [facility] Work Phone: 01-22-2022 21:26-0400 Systolic blood pressure 140 mm[Hg] [facility] Work Phone: 01-16-2022 14:12-0400 Body height 167.[address] [facility] Work Phone: 01-16-2022 14:12-0400 Body mass index (BMI) [Ratio] 33.9 kg/m2 [facility] Work Phone: 01-16-2022 14:12-0400 Body temperature 96.7 [degF] [facility] Work Phone: 01-16-2022 14:12-0400 Body weight 95.[address] [facility] Work Phone: 01-16-2022 14:12-0400 Diastolic blood pressure 93 mm[Hg] [facility] Work Phone: 01-16-2022 14:12-0400 Heart rate 130 /min [facility] Work Phone: 01-16-2022 14:12-0400 Respiratory rate 18 /min [facility] Work Phone: 01-16-2022 14:12-0400 SaO2% (BldA) [Mass fraction] 98 % [facility] Work Phone: 01-16-2022 14:12-0400 Systolic blood pressure 126 mm[Hg] [facility] Work Phone: 11-16-2021 10:09-0400 Body temperature 98.3 [degF] [facility] Work Phone: 11-16-2021 10:09-0400 Diastolic blood pressure 82 mm[Hg] [facility] Work Phone: 11-16-2021 10:09-0400 Heart rate 98 /min [facility] Work Phone: 11-16-2021 10:09-0400 Systolic blood pressure 138 mm[Hg] [facility] Work Phone: 11-16-2021 08:39-0400 Body height 167.[address] [facility] Work Phone: 11-16-2021 08:39-0400 Body mass index (BMI) [Ratio] 34.9 kg/m2 [facility] Work Phone: 11-16-2021 08:39-0400 Body weight 98.[address] [facility] Work Phone: 11-16-2021 08:39-0400 Respiratory rate 16 /min [facility] Work Phone: 11-16-2021 08:39-0400 SaO2% (BldA) [Mass fraction] 96 % [facility] Work Phone: 10-29-2021 12:09-0400 Diastolic blood pressure 69 mm[Hg] [facility] Work Phone: 10-29-2021 12:09-0400 Heart rate 71 /min [facility] Work Phone: 10-29-2021 12:09-0400 Respiratory rate 15 /min [facility] Work Phone: 10-29-2021 12:09-0400 SaO2% (BldA) [Mass fraction] 98 % [facility] Work Phone: 10-29-2021 12:09-0400 Systolic blood pressure 124 mm[Hg] [facility] Work Phone: 10-29-2021 08:59-0400 Body height 167.[address] [facility] Work Phone: 10-29-2021 08:59-0400 Body mass index (BMI) [Ratio] 34.6 kg/m2 [facility] Work Phone: 10-29-2021 08:59-0400 Body temperature 96.9 [degF] [facility] Work Phone: 10-29-2021 08:59-0400 Body weight 97.[address] [facility] Work Phone: 10-24-2021 08:30-0400 Body temperature 97.3 [degF] [facility] Work Phone: 10-24-2021 08:30-0400 Diastolic blood pressure 92 mm[Hg] [facility] Work Phone: 10-24-2021 08:30-0400 Heart rate 98 /min [facility] Work Phone: 10-24-2021 08:30-0400 Respiratory rate 16 /min [facility] Work Phone: 10-24-2021 08:30-0400 SaO2% (BldA) [Mass fraction] 100 % [facility] Work Phone: 10-24-2021 08:30-0400 Systolic blood pressure 148 mm[Hg] [facility] Work Phone: 10-24-2021 08:18-0400 Body height 167.[address] [facility] Work Phone: 10-24-2021 08:18-0400 Body mass index (BMI) [Ratio] 33.7 kg/m2 [facility] Work Phone: 10-24-2021 08:18-04[address] Body weight [address] [facility] Work Phone: 08-10-2021 23:58-0500 Heart rate 107 /min [facility] Work Phone: 08-10-2021 23:58-0500 Respiratory rate 18 /min [facility] Work Phone: 08-10-2021 23:58-0500 SaO2% (BldA) [Mass fraction] 100 % [facility] Work Phone: 08-10-2021 22:57-0500 Diastolic blood pressure 88 mm[Hg] [facility] Work Phone: 08-10-2021 22:57-0500 Systolic blood pressure 125 mm[Hg] [facility] Work Phone: 08-10-2021 21:32-0500 Body mass index (BMI) [Ratio] 35.5 kg/m2 [facility] Work Phone: 08-10-2021 21:32-0500 Body temperature 97.6 [degF] [facility] Work Phone: 08-10-2021 21:32-0500 Body weight 99.[address] [facility] Work Phone: Encounters Encounter Date Encounter Type Care Provider Facility Start: 01-02-2025 End: 01-02-2025 Amy Solorzano BOAT HOIST OPERATOR-C Work Phone: -Emergency Department Work Phone: Start: 01-02-2025 End: 01-02-2025 Emergency department patient visit Amy Solorzano NP-C Work Phone: [facility] Work Phone: Start: 01-01-2025 Dr. Frantz Coulter DO [facility] Work Phone: Start: 12-31-2024 ambulatory Dewayne Goss ty:[facility] Start: 12-31-2024 End: 01-01-2025 Evaluation and management of inpatient Amy Solorzano BOAT HOIST OPERATOR-C Work Phone: [facility] Work Phone: Start: 12-31-2024 End: 01-01-2025 Dr. Dewayne Grant DO -Intensive Care Unit Work Phone: Start: 12-31-2024 Dr. David Hernandez and -[facility] Work Phone: Start: 12-30-2024 Non-patient / Non-visit Dr. Dwaine Bain MD -[facility] Work Phone: Start: 12-30-2024 ambulatory Amy Radford in [facility] Facility:[facility] Start: 12-30-2024 End: 12-31-2024 Evaluation and management of inpatient Dr. David Bain MD -Intensive Care Unit Work Phone: Start: 12-30-2024 End: 12-31-2024 Dr. David Bain MD -Intensive Care Unit Work Phone: Start: 12-25-2024 End: 12-25-2024 ambulatory Amy Solorzano BOAT HOIST OPERATOR-C Work Phone: [facility] Work Phone: Start: 12-25-2024 End: 12-25-2024 Patient encounter procedure Nayana Peter PA -Ultrasound [facility] Work Phone: Start: 12-25-2024 End: 12-25-2024 Nayana Peter PA -Ultrasound [facility] Work Phone: Start: 12-25-2024 End: 12-25-2024 ambulatory Kalee Peter Facility:[facility] Start: 12-13-2024 End: 12-13-2024 ambulatory Amy Solorzano BOAT HOIST OPERATOR-C Work Phone: [facility] Work Phone: Start: 12-13-2024 End: 12-13-2024 Patient encounter procedure Nayanamarco Peter PA -Laboratory Work Phone: Start: 12-13-2024 End: 12-13-2024 Nayana Peter PA -Laboratory Work Phone: Start: 12-13-2024 End: 12-13-2024 Patient encounter procedure Nayana GRADY -[facility] Work Phone: Start: 12-13-2024 End: 12-13-2024 Nayana GRADY -[facility] Work Phone: Start: 12-13-2024 End: 12-13-2024 ambulatory Amy Solorzano BOAT HOIST OPERATOR-C Work Phone: [facility] Work Phone: Start: 12-13-2024 End: 12-13-2024 ambulatory Amy Solorzano [facility] Facility:[facility] Start: 11-28-2024 Non-patient / Non-visit Dr. Gale Lr DO [facility] In[facility] Work Phone: Start: 11-28-2024 Dr. Gale Lr DO [facility] In[facility] Work Phone: Start: 11-28-2024 Non-patient / Non-visit Clare SIMONC -[facility] Start: 11-28-2024 Clare GRADY-C -[facility] Start: 11-27-2024 Non-patient / Non-visit Clare GRADY-C -[facility] Start: 11-27-2024 Clare jauregui PA-C -[facility] Start: 11-26-2024 Non-patient / Non-visit Dr. Clari Rao MD -[facility] Work Phone: Start: 11-26-2024 Dr. Brenda alcocer MD -[facility] Work Phone: Start: 11-26-2024 Non-patient / Non-visit Dr. Fahad Welch MD -[facility] Start: 11-26-2024 Dr. Annalise Welch MD -[facility] Start: 11-25-2024 Non-patient / Non-visit Dr. Fahad Welch MD -[facility] Start: 11-25-2024 Dr. Annalise Welch MD -[facility] Start: 11-25-2024 ambulatory Brenda Rao [facility] Start: 11-25-2024 End: 11-28-2024 Evaluation and management of inpatient Dr. Brenda Rao MD -[facility] Work Phone: Start: 11-25-2024 End: 11-28-2024 Dr. Gale Lr DO -[facility] Work Phone: Start: 10-26-2024 ambulatory Amy Floreznay in [facility] Facility:[facility] Start: 10-25-2024 End: 10-25-2024 ambulatory Amy Solorzano BOAT HOIST OPERATOR-C Work Phone: [facility] Work Phone: Start: 10-25-2024 End: 10-25-[address] Abdirizak Forrest DPM -Cardiovascular Services Work Phone: Start: 10-25-2024 End: 10-25-2024 Dr. Abdirizak Forrest DPM -Cardiovascular Services Work Phone: Start: 10-25-2024 End: 10-25-2024 ambulatory Amy Solorzano [facility] Facility:[facility] Start: 10-17-2024 End: 10-17-2024 ambulatory Amykeiko Solorzano [employer]AT HOIST OPERATOR-C Work Phone: [facility] Work Phone: Start: 10-17-2024 End: 10-17-2024 Patient encounter procedure [facility] Amy Solorzano BOAT HOIST OPERATOR-C -Laboratory, Sophy Gibbons Start: 10-17-2024 End: 10-17-2024 [facility] Amy Solorzano BOAT HOIST OPERATOR-C -Laboratory [facility] Start: 10-17-2024 End: 10-17-2024 ambulatory Amy Solorzano [facility] Facility:[facility] Start: 07-03-2024 End: 07-03-2024 Patient encounter procedure Irais GRADY Work Phone: [facility] Comment on above: Acute cough (Primary Dx) Start: 07-03-2024 End: 07-03-2024 ambulatory [facility] Facility:[facility] Start: 07-03-2024 End: 07-03-2024 Subsequent hospital visit by physician Santiago [facility] Work Phone: Radiology Comment on above: Acute cough [R05.1] Start: 06-26-2024 End: 06-26-2024 ambulatory [facility] Facility:[facility] Start: 06-26-2024 End: 06-26-2024 Office outpatient visit 25 minutes Frantz Arevalo PA-C Work Phone: [facility] Comment on above: Bronchopneumonia (Pr imary Dx); Mild intermittent asthma, uncomplicated Start: 04-25-2024 End: 04-25-[address] [facility] Facility:[facility] Start: 11-08-2023 End: 11-08-2023 ambulatory [facility] Work Phone: Start: 11-08-2023 End: 11-08-2023 Patient encounter procedure [facility] Work Phone: Start: 07-23-2023 End: 07-23-2023 Admission to same day surgery center [facility] Start: 07-23-2023 End: 07-23-2023 ambulatory No Primary Care Physician [facility] Work Phone: Start: 07-23-2023 End: 07-23-2023 No Primary Care Physician [facility] Start: 07-12-2023 End: 07-12-2023 No Primary Care Physician [facility]-Emergency Department Work Phone: Start: 07-02-2023 End: 07-02-2023 Emergency department patient visit No Primary Care Physician [facility] Work Phone: Start: 07-02-2023 End: 07-02-2023 No Primary Care Physician [facility]-Emergency Department Work Phone: Start: 07-01-2023 End: 07-01-2023 Office outpatient visit 15 minutes Andres Galaviz APRN.[facility] Work Phone: [facility] Comment on above: Pain of right eye (P rimary Dx) Start: 06-30-2023 End: 06-30-2023 No Primary Care Physician [facility]-Emergency Department Work Phone: Start: 06-28-2023 End: 06-28-2023 Emergency department patient visit No Primary Care Physician [facility] Work Phone: Start: 06-28-2023 End: 06-28-2023 No Primary Care Physician [facility] Work Phone: Start: 06-27-2023 End: 06-27-2023 Emergency department patient visit No Primary Care Physician [facility] Work Phone: Start: 06-27-2023 End: 06-27-2023 No Primary Care Physician [facility] Work Phone: Start: 06-26-2023 End: 06-26-2023 Emergency department patient visit No Primary Care Physician [facility] Work Phone: Start: 06-26-2023 End: 06-26-2023 No Primary Care Physician [facility] Work Phone: Start: 06-25-2023 End: 06-25-2023 Emergency department patient visit No Primary Care Physician [facility] Work Phone: Start: 06-25-2023 End: 06-25-2023 No Primary Care Physician [facility] Work Phone: Start: 05-18-2023 End: 05-18-2023 ambulatory No Primary Care Physician [facility] Work Phone: Start: 05-18-2023 End: 05-18-2023 Patient encounter procedure No Primary Care Physician [facility]Laboratory, Specimen Work Phone: Start: 05-18-2023 End: 05-18-2023 No Primary Care Physician [facility], Specimen Work Phone: Start: 05-09-2023 Non-patient / Non-visit No Kristina Woo Physician [facility] Work Phone: Start: 05-09-2023 [facility] Work Phone: [facility] [facility] Work Phone: Start: 05-08-2023 Non-patient / Non-visit No Kristina cormier Care Physician [facility] [facility] Work Phone: Start: 05-08-2023 [facility] Work Phone: [facility] [facility] Work Phone: Start: 05-07-2023 Non-patient / Non-visit No Kristina Woo Physician [facility] [facility] Work Phone: Start: 05-07-2023 [facility] Work Phone: [facility] [facility] Work Phone: Start: 05-06-2023 Non-patient / Non-visit No Kristina Woo Physician [facility] Work Phone: Start: 05-06-2023 [facility] Work Phone: [facility] Work Phone: Start: 05-05-2023 Non-patient / Non-visit No Kristina cormier Care Physician [facility] Work Phone: Start: 05-05-2023 [facility] Work Phone: [facility] [facility] Work Phone: Start: 05-04-2023 End: 05-09-2023 Evaluation and management of inpatient [facility] Work Phone: [facility] Work Phone: Start: 05-04-2023 End: 05-09-2023 [facility] Work Phone: [facility] Surgical 3 Work Phone: Start: 05-04-2023 ambulatory [facility] Work Phone: [facility] Work Phone: Start: 05-04-2023 [facility] Work Phone: [facility] Work Phone: Start: 05-04-2023 Non-patient / Non-visit No [facility] Physician [facility] [facility] Work Phone: Start: 05-04-2023 [facility] Work Phone: [facility] Work Phone: Start: 04-15-2023 End: 04-15-2023 Emergency department patient visit No Primary Care Physician [facility] Work Phone: Start: 04-15-2023 End: 04-15-2023 [facility] Work Phone: [facility] Work Phone: Start: 04-15-2023 End: 04-15-2023 Patient encounter procedure Abdirizak Peña APRN.CNP Work Phone: [facility] Comment on above: SOB (shortness of br eath) (Primary Dx); Abdominal pain, unspecified abdominal location Start: 04-14-2023 End: 04-14-2023 Emergency department patient visit No Primary Care Physician [facility] Work Phone: Start: 04-14-2023 End: 04-14-2023 [facility] Work Phone: [facility] Work Phone: Start: 04-13-2023 End: 04-13-2023 Emergency department patient visit No Primary Care Physician [facility] Work Phone: Start: 04-13-2023 End: 04-13-2023 [facility] Work Phone: [facility] Work Phone: Start: 03-26-2023 ambulatory No Pcp HEATSET WINDER OPERATOR [facility] Start: 03-12-2023 Orders Only Pilar farrar HEATSET WINDER OPERATOR.MEAT BONER [employer]ICER Work Phone: [facility] Comment on above: Chronic abdominal pa in (Primary Dx) Start: 03-10-2023 Telephone encounter Amy redding NP Work Phone: NOC Comment on above: Follow Up (Post Disc harge F/U - 1st attempt made. No answer./) Start: 03-09-2023 Telephone encounter Pilar barrios HEATSET WINDER OPERATOR.MEAT BONER AND SLICER Work Phone: [facility] Comment on above: Consult Start: 03-06-2023 End: 03-06-2023 Emergency department patient visit [facility] Work Phone: [facility] Work Phone: Start: 03-06-2023 End: 03-06-2023 [facility] Work Phone: [facility] Work Phone: Start: 03-02-2023 ambulatory No Pcp HEATSET WINDER OPERATOR [facility] Start: 03-02-2023 Telephone encounter Almita lara PA-C Work Phone: [facility] Provider Adult Comment on above: Appointment Start: 03-01-2023 End: 03-04-2023 Evaluation and management of inpatient [facility] Facility:[facility] Start: 03-01-2023 End: 03-01-2023 Patient encounter procedure Dewayne Doran MD Work Phone: Gastroenterology Comment on above: Vomiting, unspecifie d vomiting type, unspecified whether nausea present (Primary Dx); Chronic nausea Start: 02-25-2023 End: 02-26-2023 Emergency department patient visit [facility] Work Phone: [facility] Work Phone: Start: 02-25-2023 End: 02-26-2023 [facility] Start: 02-24-2023 End: 02-24-2023 Emergency department patient visit No [facility] Start: 02-24-2023 End: 02-24-2023 [facility] Start: 02-23-2023 End: 02-23-2023 Patient encounter procedure Pilar Magdaleno APRN.MEAT BONER AND SLICER Work Phone: [facility] [place] Comment on above: Chronic nausea (Prim crystal Dx); Chronic abdominal pain Start: 02-17-2023 End: 02-18-2023 Emergency department patient visit DEWAYNE BRAGA [facility] Start: 02-11-2023 End: 02-11-2023 [facility] Start: 02-10-2023 End: 02-11-2023 Observation HELENA SILVERMAN APRN-MEAT BONER AND SLICER [facility] Start: 02-08-2023 End: 02-08-2023 Emergency department patient visit [facility] Start: 02-08-2023 End: 02-08-2023 [facility] Start: 02-04-2023 End: 02-04-2023 Patient encounter procedure Irais GRADY Work Phone: [facility] Comment on above: Generalized abdomina l pain (Primary Dx) Start: 02-04-2023 End: 02-04-2023 Emergency department patient visit [facility] Work Phone: [facility] Work Phone: Start: 02-04-2023 End: 02-04-2023 [facility] Work Phone: [facility] Work Phone: Start: 01-25-2023 End: 01-25-2023 Emergency department patient visit [facility] Work Phone: [facility] Work Phone: Start: 01-25-2023 End: 01-25-2023 [facility] Work Phone: [facility] Work Phone: Start: 01-24-2023 End: 01-24-2023 Emergency department patient visit ABDIRIZAK RAMIREZ [facility] Start: 01-24-2023 End: 01-24-2023 Emergency department patient visit Abdirizak Ramirez MD Work Phone: [facility] Comment on above: Nausea and vomiting, unspecified vomiting type (Primary Dx); Syncope and collapse Start: 01-17-2023 End: 01-17-2023 Emergency department patient visit GERALDINE ROLAND [facility] Start: 01-15-2023 Non-patient / Non-visit [facility] Work Phone: [facility] In[facility] Physicians Work Phone: Start: 01-15-2023 [facility] Work Phone: [facility] Work Phone: Start: 01-14-2023 End: 01-15-2023 Evaluation and management of inpatient [facility] Work Phone: Start: 01-14-2023 End: 01-15-2023 observation encounter [facility] Work Phone: [facility] Work Phone: Start: 01-14-2023 End: 01-15-2023 [facility] Work Phone: [facility] Surgical 3 Work Phone: Start: 01-13-2023 End: 01-13-2023 Emergency department patient visit [facility] Work Phone: [facility] Work Phone: Start: 01-13-2023 End: 01-13-2023 [facility] Work Phone: [facility] Work Phone: Start: 01-12-2023 End: 01-12-2023 Emergency department patient visit [facility] Work Phone: Start: 01-12-2023 End: 01-12-2023 [facility] Work Phone: [facility] Work Phone: Start: 01-11-2023 End: 01-12-2023 Emergency department patient visit [facility] Work Phone: Start: 01-11-2023 End: 01-12-2023 [facility] Work Phone: [facility] Work Phone: Start: 01-10-2023 End: 01-10-2023 Emergency department patient visit ESSIE DOWNS Facility:[facility] Start: 01-10-2023 End: 01-10-2023 [facility] Start: 01-09-2023 End: 01-09-2023 Emergency department patient visit [facility] Work Phone: Start: 01-09-2023 End: 01-09-2023 [facility] Work Phone: [facility] Work Phone: Start: 01-07-2023 End: 01-07-2023 Emergency department patient visit [facility] Work Phone: Start: 01-07-2023 End: 01-07-2023 [facility] Work Phone: [facility] Work Phone: Start: 11-25-2022 End: 11-25-2022 ambulatory [facility] Work Phone: [facility] Work Phone: Start: 11-25-2022 End: 11-25-2022 [facility] Start: 11-25-2022 End: 11-25-2022 [facility] Start: 11-19-2022 End: 11-19-2022 Emergency department patient visit [facility] Work Phone: Start: 11-19-2022 End: 11-19-2022 [facility] Work Phone: [facility] Work Phone: Start: 11-17-2022 End: 11-17-2022 Office outpatient visit 25 minutes Andres Galaviz APRN.CNP Work Phone: [facility] Comment on above: Facial infection (Pr imary Dx) Start: 10-11-2022 Telephone encounter Irais GRADY Work Phone: [facility] Comment on above: Results Start: 10-08-2022 End: 10-08-2022 Patient encounter procedure Shamika Goins PA-C Work Phone: [facility] Comment on above: Toe infection (Prima ry Dx); Facial infection; History of MRSA infection Start: 08-14-2022 Non-patient / Non-visit Dr. Jessica Gibbons Work Phone: [facility] In[facility] Start: 08-13-2022 Non-patient / Non-visit Dr. Jessica Gibbons Work Phone: [facility] Start: 08-12-2022 Non-patient / Non-visit Dr. Jessica Gibbons Work Phone: [facility] Start: 08-12-2022 End: 08-15-2022 Evaluation and management of inpatient Dr. Sophy Gibbons Work Phone: [facility]Pro[facility] Start: 06-29-2022 Non-patient / Non-visit No Kristina cormier Care Physician [facility] Start: 06-28-2022 Non-patient / Non-visit No Kristina cormier Care Physician [facility] Start: 06-27-2022 Non-patient / Non-visit No Kristina cormier Care Physician [facility] Start: 06-26-2022 Non-patient / Non-visit No Kristina cormier Care Physician [facility] Start: 06-25-2022 Non-patient / Non-visit No Kristina cormier Care Physician [facility] Start: 06-24-2022 End: 06-29-2022 Evaluation and management of inpatient No Primary Care Physician [facility] 3 Start: 06-23-2022 End: 06-23-2022 ambulatory No Primary Care Physician [facility] Work Phone: Start: 06-23-2022 End: 06-23-2022 Patient encounter procedure No Primary Care Physician [facility]Labor[facility], Specimen Start: 05-07-2022 End: 05-07-2022 ambulatory No Primary Care Physician [facility] Work Phone: Start: 05-07-2022 End: 05-07-2022 Patient encounter procedure No Primary Care Physician [facility] Start: 04-20-2022 End: 04-20-2022 ambulatory No Primary Care Physician [facility] Work Phone: Start: 04-20-2022 End: 04-20-2022 Departed Referred No Primary Care Physician [place] [id number] Start: 04-20-2022 Registered Referred No Primary Care Physician [place] [id number] Start: 04-13-2022 End: 04-13-2022 ambulatory No Primary Care Physician [facility] Work Phone: Start: 04-13-2022 End: 04-13-2022 Departed Referred No Primary Care Physician [place] [id number] Start: 04-13-2022 Registered Referred No Primary Care Physician [place] [id number] Start: 04-10-2022 End: 04-10-2022 ambulatory No Primary Care Physician [facility] Work Phone: Start: 04-10-2022 End: 04-10-2022 Departed Referred No Primary Care Physician [place] [id number] Start: 04-09-2022 Non-patient / Non-visit No Kristina casa Care Physician [facility] Start: 04-08-2022 Non-patient / Non-visit No Kristina casa Care Physician [facility] Start: 04-07-2022 Non-patient / Non-visit No Kristina casa Care Physician [facility] Start: 04-06-2022 Non-patient / Non-visit No Kristina casa Care Physician [facility] Start: 04-06-2022 End: 04-09-2022 Evaluation and management of inpatient No Primary Care Physician [facility] 3 Start: 04-05-2022 End: 04-05-2022 Emergency department patient visit No Primary Care Physician [facility] Start: 03-23-2022 End: 03-23-2022 Subsequent hospital visit by physician Santiago [facility] Work Phone: Radiology Comment on above: Acute cough [R05.1] Start: 03-23-2022 End: 03-23-2022 Patient encounter procedure Sid Bravo MD Work Phone: [facility] Comment on above: Acute cough (Primary Dx); Mild intermittent asthmatic bronchitis without complication Start: 02-16-2022 End: 02-16-2022 Patient encounter procedure No Primary Care Physician [facility] Start: 02-02-2022 End: 02-02-2022 Patient encounter procedure Alyssa Jaime LAINE Work Phone: [facility] Comment on above: Abnormal lung scan ( Primary Dx); Nausea and vomiting, unspecified vomiting type Start: 02-01-2022 End: 02-01-2022 Emergency department patient visit No [facility] Start: 01-30-2022 End: 01-30-2022 Patient encounter procedure No Primary Care Physician [facility] Start: 01-30-2022 End: 01-30-2022 Patient encounter procedure No Primary Care Physician [facility] Gastroenterology Start: 01-26-2022 End: 01-26-2022 [facility] Start: 01-23-2022 End: 01-23-2022 [facility] Start: 01-22-2022 End: 01-22-2022 Emergency department patient visit [facility] Start: 01-16-2022 End: 01-16-2022 [facility] Start: 11-16-2021 End: 11-16-2021 [facility] Start: 10-29-2021 End: 10-29-2021 [facility] Start: 10-24-2021 End: 10-24-2021 [facility] Start: 08-10-2021 End: 08-11-2021 [facility] Start: 05-15-2021 End: 05-15-2021 Subsequent hospital visit by physician Santiago [facility] Work Phone: Radiology Comment on above: Cough [R05.9] Procedures Date Procedure Procedure Detail Performing Clinician Start: 01-02-2025 Blood count smear mc rscp w/mnl difrntl wbc count Amy Solorzano NP-Sara Work Phone: Start: 01-02-2025 Estimated creatinine clearance Amy Solorzano BOAT HOIST OPERATOR-C Work Phone: Start: 01-02-2025 Mean corpuscular hem oglobin concentration determination Amy Solorzano BOAT HOIST OPERATOR-C Work Phone: Start: 01-02-2025 Nucleated red blood cell count procedure Amy Solorzano BOAT HOIST OPERATOR-C Work Phone: Start: 01-02-2025 Platelet mean volume determination Amy Solorzano BOAT HOIST OPERATOR-C Work Phone: Start: 01-02-2025 Triacylglycerol lipa se measurement Amy Solorzano BOAT HOIST OPERATOR-C Work Phone: Start: 01-01-2025 Estimated creatinine clearance Amy Solorzano BOAT HOIST OPERATOR-C Work Phone: Start: 01-01-2025 Oxygen measurement Mirian Solorzano BOAT HOIST OPERATOR-C Work Phone: Start: 01-01-2025 Venous oxygen satura tion measurement Amy Solorzano BOAT HOIST OPERATOR-C Work Phone: Start: 12-31-2024 Estimated creatinine clearance Amy Solorzano BOAT HOIST OPERATOR-C Work Phone: Start: 12-31-2024 Venous oxygen satura tion measurement Amy Solorzano BOAT HOIST OPERATOR-C Work Phone: Start: 12-31-2024 Blood count smear mc rscp w/mnl difrntl wbc count Amy Solorzano BOAT HOIST OPERATOR-C Work Phone: Start: 12-31-2024 Mean corpuscular hem oglobin concentration determination Amy Solorzano BOAT HOIST OPERATOR-C Work Phone: Start: 12-31-2024 Nucleated red blood cell count procedure Amy Solorzano BOAT HOIST OPERATOR-C Work Phone: Start: 12-31-2024 Platelet mean volume determination Amy Solorzano BOAT HOIST OPERATOR-C Work Phone: Start: 12-31-2024 Urine microscopy: red cells Amy Solorzano BOAT HOIST OPERATOR-C Work Phone: Start: 12-31-2024 Urnls dip stick/tabl et reagent auto microscopy Amy Solorzano BOAT HOIST OPERATOR-C Work Phone: Start: 12-31-2024 Estimated creatinine clearance Amy Solorzano BOAT HOIST OPERATOR-C Work Phone: Start: 12-30-2024 Venous oxygen satura tion measurement Amy Solorzano BOAT HOIST OPERATOR-C Work Phone: Start: 12-30-2024 Urine culture Amy kim BOAT HOIST OPERATOR-C Work Phone: Start: 12-30-2024 Benzodiazepine measu rement, urine Amy Solorzano BOAT HOIST OPERATOR-C Work Phone: Start: 12-30-2024 Cocaine measurement, urine Amy Solorzano BOAT HOIST OPERATOR-C Work Phone: Start: 12-30-2024 Methadone measurement, urine Amy Solorzano BOAT HOIST OPERATOR-C Work Phone: Start: 12-30-2024 Urine cannabinoid measurement Amy Solorzano BOAT HOIST OPERATOR-C Work Phone: Start: 12-30-2024 Urine microscopy: red cells Amy Solorzano BOAT HOIST OPERATOR-C Work Phone: Start: 12-30-2024 Urine opiate measurement Amy Solorzano BOAT HOIST OPERATOR-C Work Phone: Start: 12-30-2024 Urnls dip stick/tabl et reagent auto microscopy Amy Solorzano BOAT HOIST OPERATOR-C Work Phone: Start: 12-30-2024 Blood count smear mc rscp w/mnl difrntl wbc count Amy Solorzano BOAT HOIST OPERATOR-C Work Phone: Start: 12-30-2024 Estimated creatinine clearance Amy Solorzano BOAT HOIST OPERATOR-C Work Phone: Start: 12-30-2024 Mean corpuscular hem oglobin concentration determination Amy Solorzano BOAT HOIST OPERATOR-C Work Phone: Start: 12-30-2024 Nucleated red blood cell count procedure Amy Solorzano BOAT HOIST OPERATOR-C Work Phone: Start: 12-30-2024 Osmolality measureme nt, serum Amy Solorzano BOAT HOIST OPERATOR-C Work Phone: Start: 12-30-2024 Platelet mean volume determination Amy Solorzano BOAT HOIST OPERATOR-C Work Phone: Start: 12-30-2024 Serum inorganic phos phate measurement Amy Solorzano BOAT HOIST OPERATOR-C Work Phone: Start: 12-30-2024 Triacylglycerol lipa se measurement Amy Solorzano BOAT HOIST OPERATOR-C Work Phone: Start: 12-25-2024 Ultrasonography of abdomen Amy Solorzano BOAT HOIST OPERATOR-C Work Phone: Start: 12-13-2024 Blood count smear mc rscp w/mnl difrntl wbc count Amy Solorzano BOAT HOIST OPERATOR-C Work Phone: Start: 12-13-2024 Mean corpuscular hem oglobin concentration determination Amy Solorzano BOAT HOIST OPERATOR-C Work Phone: Start: 12-13-2024 Nucleated red blood cell count procedure Amy Solorzano BOAT HOIST OPERATOR-C Work Phone: Start: 12-13-2024 Platelet mean volume determination Amy Solorzano BOAT HOIST OPERATOR-C Work Phone: Start: 11-28-2024 Blood count smear mc rscp w/mnl difrntl wbc count Amy Solorzano BOAT HOIST OPERATOR-C Work Phone: Start: 11-28-2024 Estimated creatinine clearance Amy Solorzano BOAT HOIST OPERATOR-C Work Phone: Start: 11-28-2024 Mean corpuscular hem oglobin concentration determination Amy Solorzano BOAT HOIST OPERATOR-C Work Phone: Start: 11-28-2024 Nucleated red blood cell count procedure Amy Solorzano BOAT HOIST OPERATOR-C Work Phone: Start: 11-28-2024 Platelet mean volume determination Amy Solorzano BOAT HOIST OPERATOR-C Work Phone: Start: 11-27-2024 Computed tomography of abdomen and pelvis with contrast Amy Solorzano BOAT HOIST OPERATOR-C Work Phone: Start: 11-26-2024 Plain X-ray abdomen Glendy Solorzano BOAT HOIST OPERATOR-C Work Phone: Start: 11-25-2024 Blood culture Amy Kahn judy BOAT HOIST OPERATOR-C Work Phone: Start: 11-25-2024 Assay of lactate Manjinder Solorzano BOAT HOIST OPERATOR-C Work Phone: Start: 11-25-2024 Computed tomography of abdomen and pelvis with intravenous contrast Amy IBRAHIM Work Phone: Start: 11-25-2024 Urine microscopy: red cells Amy TINAJEROC Work Phone: Start: 11-25-2024 Urnls dip stick/tabl et reagent auto microscopy Amy Solorzano NP-C Work Phone: Start: 11-25-2024 Plain X-ray abdomen Glendy TINAJEROC Work Phone: Start: 11-25-2024 Estimated creatinine clearance Amy IBRAHIM Work Phone: Start: 10-17-2024 Blood count smear rscp w/mnl difrntl wbc count Amy TINAJEROC Work Phone: Start: 10-17-2024 Mean corpuscular hem oglobin concentration determination Amy IBRAHIM Work Phone: Start: 10-17-2024 Nucleated red blood cell count procedure Amy IBRAHIM Work Phone: Start: 10-17-2024 Platelet mean volume determination Amy IBRAHIM Work Phone: Start: 10-17-2024 Total cholesterol:HD L ratio measurement Amy IBRAHIM Work Phone: Start: 10-17-2024 Vitamin D, 25-hydrox y measurement Amy IBRAHIM Work Phone: Comment on above: Vitamin D [...] Hospital Physician Start: 05-08-2023 Plain X-ray abdomen [facility] Work Phone: Start: 05-07-2023 Incision and drainag e of abscess [facility] Work Phone: Start: 05-04-2023 MRI of lower extremity [facility] Work Phone: Start: 05-04-2023 Incision and drainag e of abscess [facility] Work Phone: Start: 05-04-2023 Anaerobic microbial culture No Primary Care Physician Start: 05-04-2023 Bacteria identified in Blood by Culture No Primary Care Physician Start: 05-04-2023 Fungus stain method No Primary Care Physician Start: 05-04-2023 Investigation of tra nsfusion reaction [facility] Work Phone: Start: 05-04-2023 Microbial culture, routine [facility] Work Phone: Start: 05-04-2023 Mycology culture No [facility] Physician Start: 05-04-2023 [facility] Work Phone: Start: 05-04-2023 X-ray of both feet [facility] Work Phone: Start: 03-06-2023 Computed tomography of abdomen and pelvis with contrast [facility] Work Phone: Start: 03-06-2023 X-ray of both feet [facility] Work Phone: Start: 02-26-2023 Computed tomography of abdomen and pelvis with intravenous contrast [facility] Work Phone: Start: 02-24-2023 Plain X-ray of toe [facility] Work Phone: Start: 02-17-2023 Urinalysis DEWAYNE Mendoza Comment on above: Result Comment: URIN ALYSIS Performed By: [id number] #### [facility],[address] [place], [place] [id number] Start: 02-08-2023 Computed tomography of abdomen and pelvis with contrast [facility] Work Phone: Start: 01-24-2023 Ecg routine [...] Comment: URIN ALYSIS Performed By: #### [id number] #### [facility],[address] [place] [id number] Start: 01-14-2023 Urine culture [facility] Work Phone: Start: 01-14-2023 Computed tomography of abdomen and pelvis with intravenous contrast [facility] Work Phone: Start: 08-12-2022 US urinary [...] exam ches t 2 views Andres Galaviz APRN.[facility] Work Phone: Acid fast bacilli culture [...] of 2) Zoster Vaccines (1 of 2) [facility] Start: 02-15-2025 ambulatory Facility:[facility] Start: 01-11-2025 ambulatory Facility:[facility] Start: 01-02-2025 [facility] Start: 01-01-2025 Patient discharge [facility] Start: 01-01-2025 [facility] Start: 12-31-2024 End: 01-01-2025 [facility] Start: 12-31-2024 Application of intermittent pneumatic compression device [facility] Start: 12-31-2024 End: 12-31-2024 Following clinical pathway protocol [facility] Start: 12-31-2024 Lab findings surveillance [facility] Start: 12-31-2024 Notification of physician [facility] Start: 12-31-2024 Patient education [facility] Start: 12-31-2024 Patient referral to dietitian [facility] Start: 12-31-2024 Vital signs measurements [facility] Start: 12-31-2024 Admission procedure [facility] Start: 12-31-2024 Thyroid stimulating hormone measurement [facility] Start: 12-31-2024 Hospital admission, emergency, from emergency room, medical nature [facility] Start: 12-31-2024 Urine test [facility] Start: 12-31-2024 Following clinical pathway protocol [facility] Start: 12-31-2024 Patient discharge [facility] Start: 12-30-2024 [facility] Start: 12-30-2024 Bacteria identified in Urine by Culture Urine Culture [facility] Start: 12-30-2024 Urine culture [facility] Start: 12-30-2024 Assessment of risk of venous thromboembolism [facility] Start: 12-30-2024 Continuous pulse oximetry [facility] Start: 12-30-2024 End: 12-30-2024 Following clinical pathway protocol [facility] Start: 12-30-2024 Incentive spirometry [facility] Start: 12-30-2024 Insertion of catheter into peripheral vein [facility] Start: 12-30-2024 Lab findings surveillance [facility] Start: 12-30-2024 Measuring intake and output [facility] Start: 12-30-2024 Notification of physician [facility] Start: 12-30-2024 Oxygen therapy [facility] Start: 12-30-2024 Patient education [facility] Start: 12-30-2024 Providing care according to standard [facility] Start: 12-30-2024 Vital signs measurements [facility] Start: 12-30-2024 [facility] Start: 12-30-2024 Verification routine [facility] Start: 12-30-2024 Hospital admission, emergency, from emergency room, medical nature [facility] Start: 12-30-2024 Admission procedure [facility] Start: 12-30-2024 End: 12-31-2024 [facility] Start: 12-30-2024 Osmolality measurement, serum [facility] Start: 12-30-2024 Serum inorganic phosphate measurement [facility] Start: 12-30-2024 Patient referral to dietitian [facility] Start: 11-28-2024 Patient discharge [facility] Start: 11-28-2024 [facility] Start: 11-26-2024 End: 11-27-2024 [facility] Start: 11-26-2024 Inhalation therapy procedure [facility] Start: 11-25-2024 Following clinical pathway protocol [facility] Start: 11-25-2024 Assessment of risk of venous thromboembolism [facility] Start: 11-25-[address] [facility] Start: 11-25-2024 Insertion of catheter into peripheral vein [facility] Start: 11-25-2024 Notification of physician [facility] Start: 11-25-2024 Providing care according to standard [facility] Start: 11-25-2024 Provision of activity privileges [facility] Start: 11-25-2024 Referral to general surgeon [facility] Start: 11-25-2024 Referral to occupational therapist [facility] Start: 11-25-2024 Referral to service [facility] Start: 11-25-2024 End: 11-25-2024 [facility] Start: 11-25-2024 Hospital admission, emergency, from emergency room, medical nature [facility] Start: 11-25-2024 Bacteria identified in Blood by Culture Blood Culture [facility] Start: 11-25-2024 Blood culture Blood Culture [facility] Start: 11-25-2024 Admission procedure [facility] Start: 11-25-2024 Verification routine [facility] Start: 11-25-2024 [facility] Start: 03-12-2024 Covid-19 Vaccine ( season) Covid-19 Vaccine () [facility] Start: 03-12-2024 Influenza vaccination Influenza Vaccine (#1) [facility] Start: 02-24-2024 ANNUAL PCP TEAM CHRONIC DISEASE VISIT ANNUAL PCP TEAM CHRONIC DISEASE VISIT [facility] Start: 01-12-2024 [facility] Start: 07-23-2023 Amputation foot transmetarsal AMPUTATION THRU METATARSAL [facility] Start: 07-23-2023 Anes open proc bones lower leg/ankle/foot nos ANESTH LOWER LEG BONE SURG [facility] Start: 07-23-2023 Injection aa&/strd sciatic nerve NJX AA&/STRD SCIATIC NRV IMG [facility] Start: 07-23-2023 Musc myocutaneous/fasciocutaneous flap lxtr MUSCLE-SKIN GRAFT LEG [facility] Start: 07-23-2023 Smr prim src gram/giemsa stain bct fungi/cell SMEAR GRAM STAIN [facility] Start: 07-23-2023 [facility] Start: 07-23-2023 Patient discharge [facility] Start: 07-23-2023 X-ray of both feet [facility] Start: 07-23-2023 XR Foot GE 3 Views [facility] Start: 07-12-2023 [facility] Start: 06-28-2023 [facility] Start: 06-27-2023 [facility] Start: 06-27-2023 Blood chemistry [facility] Start: 06-26-2023 [facility] Start: 06-25-2023 [facility] Start: 05-21-2023 Hemoglobin A1c measurement HbA1C [facility] Start: 05-21-2023 Hemoglobin A1c/Hemoglobin.total in Blood HBA1C [facility] Start: 05-18-2023 Anaerobic microbial culture Anaerobic Culture [facility] Start: 05-18-2023 [facility] Start: 05-09-2023 Patient discharge [facility] Start: 05-08-2023 Inhalation therapy procedure [facility] Start: 05-07-2023 [facility] Start: 05-04-2023 [facility] Start: 05-04-2023 Ambulation without limitation [facility] Start: 05-04-2023 Assessment of risk of venous thromboembolism [facility] Start: 05-04-[address] [facility] Start: 05-04-2023 Consultation for treatment [facility] Start: 05-04-2023 Insertion of catheter into peripheral vein [facility] Start: 05-04-2023 Notification of physician [facility] Start: 05-04-2023 Patient referral to dietitian [facility] Start: 05-04-2023 Providing care according to standard [facility] Start: 05-04-2023 [facility] Start: 05-04-2023 Following clinical pathway protocol [facility] Start: 05-04-2023 Incision and drainage of abscess [facility] Start: 05-04-2023 Admission procedure [facility] Start: 05-04-2023 Hospital admission, emergency, from emergency room, medical nature [facility] Start: 05-04-2023 End: 05-04-2023 Blood culture [facility] Start: 05-04-2023 End: 05-04-2023 [facility] Start: 05-04-2023 [facility] Start: 04-15-2023 [facility] Start: 03-12-2023 Covid-19 Vaccine () Covid-19 Vaccine () [facility] Start: 03-12-2023 Influenza vaccination [facility] Start: 01-25-2023 Blood chemistry [facility] Start: 01-25-2023 Computed tomography of abdomen and pelvis with intravenous contrast Abdomen/Pelvis W IV Cont ONLY [facility] Start: 01-25-2023 Electrocardiographic procedure [facility] Start: 01-25-2023 Lipase measurement [facility] Start: 01-25-2023 [facility] Start: 01-19-2023 [facility] Start: 01-18-2023 [facility] Start: 01-17-2023 [facility] Start: 01-16-2023 [facility] Start: 01-15-2023 Patient discharge [facility] Start: 01-14-2023 Referral to service [facility] Start: 01-14-2023 Assessment of risk of venous thromboembolism [facility] Start: 01-14-[address] [facility] Start: 01-14-2023 Insertion of catheter into peripheral vein [facility] Start: 01-14-2023 Measuring intake and output [facility] Start: 01-14-2023 Patient referral to dietitian [facility] Start: 01-14-2023 Providing care according to standard [facility] Start: 01-14-2023 Provision of activity privileges [facility] Start: 01-14-2023 [facility] Start: 01-14-2023 Following clinical pathway protocol [facility] Start: 01-14-2023 Verification routine [facility] Start: 01-14-2023 Admission procedure [facility] Start: 01-12-2023 US Gallbladder [facility] Start: 01-12-2023 US Pelvis transvaginal [facility] Start: 10-08-2022 End: 12-08-2022 Bacteria identified in Wound by Culture ABSCESS AND WOUND CULTURE WITH GRAM STAIN Microbiology Routine Toe infection Expected: 10/08/2022, Expires: 12/08/2022 [facility] Work Phone: Comment on above: Expected: 10/08/2022, Expires: Start: 08-15-2022 Patient discharge [facility] Start: 08-14-2022 Provision of activity privileges [facility] Start: 08-13-2022 End: 08-13-2022 Blood culture [facility] Start: 08-13-2022 [facility] Start: 08-13-2022 Inhalation therapy procedure [facility] Start: 08-12-2022 Following clinical pathway protocol [facility] Start: 08-12-2022 Assessment of risk of venous thromboembolism [facility] Start: 08-12-[address] [facility] Start: 08-12-2022 Insertion of catheter into peripheral vein [facility] Start: 08-12-2022 Measuring intake and output [facility] Start: 08-12-2022 Notification of physician [facility] Start: 08-12-2022 Providing care according to standard [facility] Start: 08-12-2022 Provision of activity privileges [facility] Start: 08-12-2022 [facility] Start: 08-12-2022 Admission procedure [facility] Start: 08-12-2022 [facility] Start: 08-12-2022 Patient referral to dietitian [facility] Start: 07-12-2022 DEPRESSION ASSESSMENT DEPRESSION ASSESSMENT [facility] Start: 06-30-2022 Blood chemistry [facility] Work Phone: Start: 06-29-2022 Patient discharge [facility] Start: 06-29-2022 Blood chemistry [facility] Work Phone: Start: 06-28-2022 Blood chemistry [facility] Work Phone: Start: 06-27-2022 Blood chemistry [facility] Work Phone: Start: 06-26-2022 Wound care [facility] Start: 06-26-2022 Elevation of affected extremity [facility] Start: 06-26-2022 [facility] Start: 06-26-2022 Debridement Debridement Wound (Right) [facility] Work Phone: Start: 06-26-2022 Blood chemistry [facility] Work Phone: Start: 06-25-2022 Referral to service [facility] Start: 06-25-2022 Consultation [facility] Start: 06-24-2022 Assessment of risk of venous thromboembolism [facility] Start: 06-24-[address] [facility] Start: 06-24-2022 Consultation for treatment [facility] Start: 06-24-2022 Insertion of catheter into peripheral vein [facility] Start: 06-24-2022 Providing care according to standard [facility] Start: 06-24-2022 Provision of activity privileges [facility] Start: 06-24-2022 Referral to occupational therapist [facility] Start: 06-24-2022 Referral to therapy coordinator [facility] Start: 06-24-2022 Referral to service [facility] Start: 06-24-2022 [facility] Start: 06-24-2022 Following clinical pathway protocol [facility] Start: 06-24-2022 End: 06-25-2022 [facility] Start: 06-24-2022 Verification routine [facility] Work Phone: Start: 06-24-2022 Admission procedure [facility] Start: 06-24-2022 End: 06-24-2022 Blood culture [facility] Work Phone: Start: 06-24-2022 Patient referral to dietitian [facility] Start: 06-23-2022 Cul bact aerobic addl meths definitive ea isol CULTURE AEROBIC IDENTIFY [facility] Start: 06-23-2022 Cul bact xcpt urine blood/stool aerobic isol CULTURE OTHR SPECIMN AEROBIC [facility] Start: 06-23-2022 Iadna s aureus amplified probe tq STAPH A DNA AMP PROBE [facility] Start: 06-23-2022 Smr prim src gram/giemsa stain bct fungi/cell SMEAR GRAM STAIN [facility] Start: 06-23-2022 [facility] Work Phone: Start: 04-27-2022 Hemoglobin A1c/Hemoglobin.total in Blood HBA1C [facility] Start: 04-09-2022 Patient discharge [facility] Work Phone: Start: 04-07-2022 Consultation [facility] Work Phone: Start: 04-07-2022 End: 04-07-2022 Referral to service [facility] Work Phone: Start: 04-06-2022 Elevation of affected extremity [facility] Work Phone: Start: 04-06-2022 [facility] Work Phone: Start: 04-06-2022 End: 04-06-2022 Following clinical pathway protocol [facility] Work Phone: Start: 04-06-2022 Ambulation without limitation [facility] Work Phone: Start: 04-06-2022 Assessment of risk of venous thromboembolism [facility] Work Phone: Start: 04-06-[address] [facility] Work Phone: Start: 04-06-2022 Consultation for treatment [facility] Work Phone: Start: 04-06-2022 Elevation of affected extremity [facility] Work Phone: Start: 04-06-2022 Insertion of catheter into peripheral vein [facility] Work Phone: Start: 04-06-2022 Notification of physician [facility] Work Phone: Start: 04-06-2022 Patient referral to dietitian [facility] Work Phone: Start: 04-06-2022 Providing care according to standard [facility] Work Phone: Start: 04-06-2022 Referral to therapy coordinator [facility] Work Phone: Start: 04-06-2022 Wound care [facility] Work Phone: Start: 04-06-2022 [facility] Work Phone: Start: 04-06-2022 Verification routine [facility] Work Phone: Start: 04-06-2022 Admission procedure [facility] Work Phone: Start: 04-06-2022 End: 04-07-2022 [facility] Work Phone: Start: 04-06-2022 Patient referral to dietitian [facility] Work Phone: Start: 04-05-2022 Assay of lactate ASSAY OF LACTIC ACID [facility] Work Phone: Start: 04-05-2022 Basic metabolic panel calcium total METABOLIC PANEL TOTAL CA [facility] Work Phone: Start: 04-05-2022 Blood count complete auto&auto difrntl wbc COMPLETE CBC W/AUTO DIFF WBC [facility] Work Phone: Start: 04-05-2022 Culture bacterial blood aerobic w/id isolates BLOOD CULTURE FOR BACTERIA [facility] Work Phone: Start: 04-05-2022 Emergency department visit moderate severity EMERGENCY DEPT VISIT [facility] Work Phone: Start: 04-05-2022 Iv infusion ther proph addl sequential to 1 hr TX/PROPH/DG ADDL SEQ IV INF [facility] Work Phone: Start: 04-05-2022 Iv infusion therapy prophylaxis/dx ea hour [facility] Work Phone: Start: 04-05-2022 Iv infusion therapy/prophylaxis /dx 1st to 1 hr THER/PROPH/DIAG IV INF INIT [facility] Work Phone: Start: 04-05-2022 Radex foot complete minimum 3 views X-RAY EXAM OF FOOT [facility] Work Phone: Start: 04-05-2022 End: 04-05-2022 Blood culture [facility] Work Phone: Start: 03-23-2022 End: 04-06-2022 SARS-CoV-2 (COVID-19) RNA [Presence] in Respiratory specimen by REBECCA with probe detection 2019 CORON[facility]IRUS Microbiology Routine Acute cough Mild intermittent asthmatic bronchitis without complication Expected: 03/23/2022, Expires: 04/06/2022 [facility] Work Phone: Comment on above: Expected: 03/23/2022, Expires: 2 Start: 03-12-2022 Influenza vaccination INFLUENZA (#1) [facility] Start: 01-30-2022 Celiac disease screen [facility] Work Phone: Start: 01-30-2022 Immunoglobulin measurement [facility] Work Phone: Start: 01-30-2022 Serum immunofixation [facility] Work Phone: Start: 01-30-[address] [facility] Work Phone: Start: 01-30-2022 [facility] Work Phone: Start: 01-28-2022 HPV TESTING HPV TESTING [facility] Start: 01-28-2022 Screening for malignant neoplasm of cervix [facility] Start: 08-25-2021 COVID-19 VACCINE (2 - Moderna series) COVID-19 VACCINE (2 - Moderna series) [facility] Start: 03-10-2020 3 comp foot exam completed DIABETIC FOOT EXAM [facility] Start: 03-10-2020 ANNUAL PCP TEAM CHRONIC DISEASE VISIT ANNUAL PCP TEAM CHRONIC DISEASE VISIT [facility] Start: 03-10-2020 Diabetic foot examination Diabetic Foot Exam [facility] Start: 05-03-2018 PAP TESTING PAP TESTING [facility] Start: 05-03-2018 Screening for malignant neoplasm of cervix Pap Testing [facility] Start: 05-03-2016 Screening for malignant neoplasm of cervix Cervical Cancer Screening [facility] Start: 06-07-2014 Hepatitis B surface antibody level LDL CHOLESTEROL [facility] Start: 04-12-2014 Hepatitis B screening URINE ALBUMIN:CREATININE RATIO [facility] Start: 03-31-2014 Glaucoma screening Dilated Retinal Exam [facility] Start: 03-31-2014 Hepatitis C antibody, confirmatory test DILATED RETINAL EXAM [facility] Start: 03-06-2014 PNEUMOCOCCAL (2 - PCV) PNEUMOCOCCAL (2 - PCV) [facility] Start: 03-06-2014 Pneumococcal vaccination [facility] Start: 03-06-2014 Pneumococcal Vaccine: Pediatrics (0 to 5 Years) and At-Risk Patients (6 to 64 Years) (2 - PCV) Pneumococcal Vaccine: Pediatrics (0 to 5 Years) and At-Risk Patients (6 to 64 Years) (2 - PCV) [facility] Start: 01-28-2013 Screening for malignant neoplasm of cervix Pap Smear [facility] Start: 01-28-2011 DTaP/Tdap/Td Vaccines (1 - Tdap) DTaP/Tdap/Td Vaccines (1 - Tdap) [facility] Start: 01-28-2011 HEPATITIS B (1 of 3 - Risk 3-dose series) HEPATITIS B (1 of 3 - Risk 3-dose series) [facility] Start: 01-28-2011 Hepatitis B Vaccine (1 of 3 - 19+ 3-dose series) Hepatitis B Vaccine (1 of 3 - 19+ 3-dose series) [facility] Start: 01-28-2011 Urine microalbumin profile [facility] Start: 01-28-2010 HEPATITIS C SCREENING HEPATITIS C SCREENING [facility] Start: 01-28-2010 Hepatitis C screening Hepatitis C Screening [facility] Start: 01-28-2010 HIV SCREENING HIV SCREENING [facility] Start: 01-28-2010 HIV screening HIV Screening [facility] Start: 2004 Adult depression screening assessment DEPRESSION SCREENING [facility] Start: 01-28-2002 Diabetic foot examination Diabetes: Foot Exam [facility] Start: 01-28-2002 Glaucoma screening Diabetes: Retinopathy Screening [facility] Start: 01-28-2002 Preventive dental service Diabetes: Dental Exam [facility] Start: 01-28-1993 MMR Vaccines (1 of 1 - Standard series) MMR Vaccines (1 of 1 - Standard series) [facility] Start: 01-28-1993 Varicella vaccination Varicella Vaccines (1 of 2 - 2-dose childhood series) [facility] Start: 1992 COVID-19 VACCINE (#1) COVID-19 VACCINE (#1) [facility] Start: 1992 Hemoglobin A1c measurement Diabetes: Hemoglobin A1C [facility] Start: 1992 HEPATITIS B (1 of 3 - 3-dose series) HEPATITIS B (1 of 3 - 3-dose series) [facility] Start: 1992 Hepatitis B Vaccine (1 of 3 - 3-dose series) Hepatitis B Vaccine (1 of 3 - 3-dose series) [facility] Start: 1992 Hepatitis B Vaccines (1 of 3 - 3-dose series) Hepatitis B Vaccines (1 of 3 - 3-dose series) [facility] Start: 1992 HIV screening HIV Screening [facility] Start: 1992 Lipid panel Lipid Panel [facility] Acetone [Presence] i n Serum or Plasma [facility] Acid fast bacilli culture [facility] Work Phone: Acid fast bacilli culture [facility] Alanine aminotransfe rase [Enzymatic activity/volume] in Serum or Plasma [facility] Alanine aminotransfe rase [Enzymatic activity/volume] in Serum or Plasma [facility] Alanine aminotransfe rase [Enzymatic activity/volume] in Serum or Plasma [facility] Alanine aminotransfe rase [Enzymatic activity/volume] in Serum or Plasma [facility] Alanine aminotransfe rase [Enzymatic activity/volume] in Serum or Plasma [facility] Albumin [Mass/volume ] in Serum or Plasma [facility] Albumin [Mass/volume ] in Serum or Plasma [facility] Albumin [Mass/volume ] in Serum or Plasma [facility] Albumin [Mass/volume ] in Serum or Plasma [facility] Albumin [Mass/volume ] in Serum or Plasma [facility] Albumin [Moles/volum e] in Serum or Plasma [facility] Work Phone: Albumin/Globulin ratio [facility] Work Phone: Alkaline phosphatase [Enzymatic activity/volume] in Serum or Plasma [facility] Alkaline phosphatase [Enzymatic activity/volume] in Serum or Plasma [facility] Alkaline phosphatase [Enzymatic activity/volume] in Serum or Plasma [facility] Alkaline phosphatase [Enzymatic activity/volume] in Serum or Plasma [facility] Alkaline phosphatase [Enzymatic activity/volume] in Serum or Plasma [facility] Anion gap measurement [facility] Work Phone: Anion gap measurement [facility] Anion gap measurement [facility] Anion gap measurement [facility] Anion gap measurement [facility] Anion gap measurement [facility] Anion gap measurement [facility] Antibody to lupus La protein measurement [facility] Work Phone: Antibody to SS-A measurement [facility] Work Phone: Aspartate aminotrans ferase [Enzymatic activity/volume] in Serum or Plasma [facility] Aspartate aminotrans ferase [Enzymatic activity/volume] in Serum or Plasma [facility] Aspartate aminotrans ferase [Enzymatic activity/volume] in Serum or Plasma [facility] Aspartate aminotrans ferase [Enzymatic activity/volume] in Serum or Plasma [facility] Aspartate aminotrans ferase [Enzymatic activity/volume] in Serum or Plasma [facility] Bacteria identified in Blood by Culture Blood Culture [facility] Bacteria identified in Unspecified specimen by Anaerobe culture [facility] Work Phone: Bacteria identified in Unspecified specimen by Anaerobe culture [facility] Bacteria identified in Urine by Culture Urine Culture [facility] Beta hydroxybutyrate [Mass/volume] in Serum or Plasma [facility] Beta hydroxybutyrate [Mass/volume] in Serum or Plasma [facility] Bilirubin measurement, urine [facility] Bilirubin measurement, urine [facility] Bilirubin, total measurement [facility] Bilirubin, total measurement [facility] Bilirubin, total measurement [facility] Bilirubin, total measurement [facility] Bilirubin, total measurement [facility] Bilirubin.direct [Mass/volume] in Serum or Plasma [facility] Blood culture [facility] Work Phone: BUN/Creatinine ratio [facility] Work Phone: BUN/Creatinine ratio [facility] BUN/Creatinine ratio [facility] BUN/Creatinine ratio [facility] BUN/Creatinine ratio [facility] BUN/Creatinine ratio [facility] BUN/Creatinine ratio [facility] Calcium [Mass/volume ] in Serum or Plasma [facility] Work Phone: Calcium [Mass/volume ] in Serum or Plasma [facility] Calcium [Mass/volume ] in Serum or Plasma [facility] Calcium [Mass/volume ] in Serum or Plasma [facility] Calcium [Mass/volume ] in Serum or Plasma [facility] Calcium [Mass/volume ] in Serum or Plasma [facility] Calcium [Mass/volume ] in Serum or Plasma [facility] Carbon dioxide, tota l [Moles/volume] in Serum or Plasma [facility] Work Phone: Carbon dioxide, tota l [Moles/volume] in Serum or Plasma [facility] Carbon dioxide, tota l [Moles/volume] in Serum or Plasma [facility] Carbon dioxide, tota l [Moles/volume] in Serum or Plasma [facility] Carbon dioxide, tota l [Moles/volume] in Serum or Plasma [facility] Carbon dioxide, tota l [Moles/volume] in Serum or Plasma [facility] Carbon dioxide, tota l [Moles/volume] in Serum or Plasma [facility] CBC W Auto Different ial panel - Blood [facility] Centromere protein B Ab [Units/volume] in Serum [facility] Work Phone: Chloride [Moles/volu me] in Serum or Plasma [facility] Work Phone: Chloride [Moles/volu me] in Serum or Plasma [facility] Chloride [Moles/volu me] in Serum or Plasma [facility] Chloride [Moles/volu me] in Serum or Plasma [facility] Chloride [Moles/volu me] in Serum or Plasma [facility] Chloride [Moles/volu me] in Serum or Plasma [facility] Chloride [Moles/volu me] in Serum or Plasma [facility] Choriogonadotropin.b eta subunit ( test) [Presence] in Serum or Plasma [facility] Chromatin Ab [Units/ volume] in Serum or Plasma [facility] Work Phone: Comprehensive metabo lic 2000 panel - Serum or Plasma [facility] Creatinine [Moles/vo lume] in Serum or Plasma [facility] Work Phone: Creatinine [Moles/vo lume] in Serum or Plasma [facility] Creatinine [Moles/vo lume] in Serum or Plasma [facility] Creatinine [Moles/vo lume] in Serum or Plasma [facility] Creatinine [Moles/vo lume] in Serum or Plasma [facility] Creatinine [Moles/vo lume] in Serum or Plasma [facility] Creatinine [Moles/vo lume] in Serum or Plasma [facility] DNA double strand Ab [Units/volume] in Serum [facility] Work Phone: Electrophoresis: [id number] [facility] Work Phone: Electrophoresis: gabriella ma globulin [facility] Work Phone: Erythrocyte mean cor puscular volume determination [facility] Erythrocyte sediment ation rate [facility] Globulin measurement [facility] Work Phone: Glucose [Mass/volume ] in Serum or Plasma [facility] Work Phone: Glucose [Mass/volume ] in Serum or Plasma [facility] Glucose [Mass/volume ] in Serum or Plasma [facility] Glucose [Mass/volume ] in Serum or Plasma [facility] Glucose [Mass/volume ] in Serum or Plasma [facility] Glucose [Mass/volume ] in Serum or Plasma [facility] Glucose [Mass/volume ] in Serum or Plasma [facility] Hematocrit [Volume F raction] of Blood [facility] Work Phone: Hematocrit [Volume F raction] of Blood [facility] Hematocrit [Volume F raction] of Blood [facility] Hematocrit [Volume F raction] of Blood [facility] Hematocrit [Volume F raction] of Blood [facility] Hematocrit [Volume F raction] of Blood [facility] Hematocrit [Volume F raction] of Blood [facility] Hemoglobin [Mass/vol ume] in Blood [facility] Work Phone: Hemoglobin [Mass/vol ume] in Blood [facility] Hemoglobin [Mass/vol ume] in Blood [facility] Hemoglobin [Mass/vol ume] in Blood [facility] Hemoglobin [Mass/vol ume] in Blood [facility] Hemoglobin [Mass/vol ume] in Blood [facility] Hemoglobin [Mass/vol ume] in Blood [facility] Hemoglobin [Presence ] in Urine [facility] Hemoglobin [Presence ] in Urine [facility] IgA [Mass/volume] in Serum or Plasma [facility] Work Phone: IgE [Units/volume] i n Serum or Plasma [facility] Work Phone: IgG [Mass/volume] in Serum or Plasma [facility] Work Phone: IgM [Mass/volume] in Serum or Plasma [facility] Work Phone: Neva-1 extractable nuc lear Ab [Units/volume] in Serum [facility] Work Phone: Lactic acid measurement [facility] Work Phone: Leukocytes [#/volume ] in Blood [facility] Work Phone: Leukocytes [#/volume ] in Blood [facility] Leukocytes [#/volume ] in Blood [facility] Leukocytes [#/volume ] in Blood [facility] Leukocytes [#/volume ] in Blood [facility] Leukocytes [#/volume ] in Blood [facility] Leukocytes [#/volume ] in Blood [facility] Magnesium measurement [facility] Magnesium measurement [facility] Mean corpuscular hem oglobin concentration determination [facility] Work Phone: Mean corpuscular hem oglobin concentration determination [facility] Mean corpuscular hem oglobin concentration determination [facility] Mean corpuscular hem oglobin concentration determination [facility] Mean corpuscular hem oglobin concentration determination [facility] Mean corpuscular hem oglobin concentration determination [facility] Mean corpuscular hem oglobin concentration determination [facility] Mean corpuscular hem oglobin determination [facility] Work Phone: Mean corpuscular hem oglobin determination [facility] Mean corpuscular hem oglobin determination [facility] Mean corpuscular hem oglobin determination [facility] Mean corpuscular hem oglobin determination [facility] Mean corpuscular hem oglobin determination [facility] Mean corpuscular hem oglobin determination [facility] Measurement of immun oglobulin A in serum specimen [facility] Work Phone: Measurement of keton es in urine using dipstick [facility] Measurement of keton es in urine using dipstick [facility] Measurement of renal function [facility] Work Phone: Measurement of renal function [facility] Measurement of renal function [facility] Measurement of renal function [facility] Measurement of renal function [facility] Measurement of renal function [facility] Measurement of renal function [facility] Microbial culture, routine Wound Culture [facility] Work Phone: Microscopic urinalysis [facility] Work Phone: Microscopic urinalysis [facility] Microscopic urinalysis [facility] Mycobacterium sp marko ntified in Unspecified specimen by Organism specific culture [facility] Work Phone: Mycobacterium sp marko ntified in Unspecified specimen by Organism specific culture [facility] Neutrophil count [facility] Work Phone: Neutrophil count [facility] Neutrophil count [facility] Neutrophil count [facility] Neutrophil count [facility] Neutrophil count [facility] Neutrophil count [facility] Neutrophil cytoplasm ic Ab.classic [Units/volume] in Serum [facility] Work Phone: Neutrophil percent differential count [facility] Work Phone: Neutrophil percent differential count [facility] Neutrophil percent differential count [facility] Neutrophil percent differential count [facility] Neutrophil percent differential count [facility] Neutrophil percent differential count [facility] Neutrophil percent differential count [facility] End: 03-31-2024 NM Stomach Views for gastric emptying solid phase W radionuclide PO NM GASTRIC EMPTYING SOLID Radiology Routine Nausea 1 Occurrences starting 03/02/2023 until 03/31/2024 [facility] Work Phone: Comment on above: 1 Occurrences starting 03/02/2023 until 03/31/2024 Organism count, micr oscopic method [facility] Work Phone: P-ANCA measurement [facility] Work Phone: Patient Education [facility] Work Phone: Patient referral [facility] Work Phone: pH of Urine [facility] pH of Urine [facility] Platelets [#/volume] in Blood [facility] Work Phone: Platelets [#/volume] in Blood [facility] Platelets [#/volume] in Blood [facility] Platelets [#/volume] in Blood [facility] Platelets [#/volume] in Blood [facility] Platelets [#/volume] in Blood [facility] Platelets [#/volume] in Blood [facility] Potassium [Moles/vol ume] in Serum or Plasma [facility] Work Phone: Potassium [Moles/vol ume] in Serum or Plasma [facility] Potassium [Moles/vol ume] in Serum or Plasma [facility] Potassium [Moles/vol ume] in Serum or Plasma [facility] Potassium [Moles/vol ume] in Serum or Plasma [facility] Potassium [Moles/vol ume] in Serum or Plasma [facility] Potassium [Moles/vol ume] in Serum or Plasma [facility] Protein electrophore sis panel - Serum or Plasma [facility] Work Phone: Radionuclide gastric emptying study [facility] Red blood cell count [facility] Work Phone: Red blood cell count [facility] Red blood cell count [facility] Red blood cell count [facility] Red blood cell count [facility] Red blood cell count [facility] Red blood cell count [facility] Red cell distributio n width determination [facility] Work Phone: Red cell distributio n width determination [facility] Red cell distributio n width determination [facility] Red cell distributio n width determination [facility] Red cell distributio n width determination [facility] Red cell distributio n width determination [facility] Red cell distributio n width determination [facility] SCL-70 extractable n uclear Ab [Units/volume] in Serum by Immunoassay [facility] Work Phone: Serum protein electrophoresis [facility] Work Phone: Jang extractable nu clear Ab [Presence] in Serum [facility] Work Phone: Sodium [Moles/volume ] in Serum or Plasma [facility] Work Phone: Sodium [Moles/volume ] in Serum or Plasma [facility] Sodium [Moles/volume ] in Serum or Plasma [facility] Sodium [Moles/volume ] in Serum or Plasma [facility] Sodium [Moles/volume ] in Serum or Plasma [facility] Sodium [Moles/volume ] in Serum or Plasma [facility] Sodium [Moles/volume ] in Serum or Plasma [facility] Specific gravity of Urine [facility] Specific gravity of Urine [facility] Tissue transglutamin ase IgA Ab [Units/volume] in Serum [facility] Work Phone: Total protein measurement [facility] Total protein measurement [facility] Total protein measurement [facility] Total protein measurement [facility] Total protein measurement [facility] Urea nitrogen [Mass/ volume] in Serum or Plasma [facility] Work Phone: Urea nitrogen [Mass/ volume] in Serum or Plasma [facility] Urea nitrogen [Mass/ volume] in Serum or Plasma [facility] Urea nitrogen [Mass/ volume] in Serum or Plasma [facility] Urea nitrogen [Mass/ volume] in Serum or Plasma [facility] Urea nitrogen [Mass/ volume] in Serum or Plasma [facility] Urea nitrogen [Mass/ volume] in Serum or Plasma [facility] Urinalysis, blood, qualitative [facility] Work Phone: Urinalysis, blood, qualitative [facility] Urinalysis, blood, qualitative [facility] Urine dipstick for glucose [facility] Urine dipstick for glucose [facility] Urine dipstick for l eukocyte esterase [facility] Urine dipstick for l eukocyte esterase [facility] Urine dipstick for nitrite [facility] Urine dipstick for nitrite [facility] Urine dipstick for protein [facility] Urine dipstick for protein [facility] Urine examination [facility] Urine examination [facility] Urine microscopy: ep ithelial cells [facility] Work Phone: Urine microscopy: ep ithelial cells [facility] Urine microscopy: ep ithelial cells [facility] Urine Microscopy: white cells [facility] Urine Microscopy: white cells [facility] Urobilinogen [Presen ce] in Urine [facility] Urobilinogen [Presen ce] in Urine [facility] Vancomycin [Mass/vol ume] in Serum or Plasma --trough [facility] Work Phone: White blood cell count [facility] Work Phone: [facility] Immunizations Immunization Date Immunization Notes Care Provider Fa chapin 06-30-2021 Covid (Moderna) [facility] Work Phone: [facility] 04-13-2013 influenza virus vacc ine, unspecified formulation Alyssa Jaime [employer] Work Phone: [facility] 03-06-2013 pneumococcal polysaccharide vaccine, 23 valent Alyssa Jaime [employer] Work Phone: [facility] Work Phone: Payers Date Payer Category Payer Self-pay [id number] 2021 Medicaid [id number] 2021 Medicaid [employer] [place] [id number] 2021-Present [phone] [address] [address] [place] [address] Medicaid [id number] 2021 Medicaid [id number] 1992 Unknown [id number] 1992 Unknown [id number] [id number] 1992 Unknown [id number] [id number] 1992 Unknown [id number] 2.16.840.1.097385.3.579.2.627 Unknown [id number] 2.840.1.555027.3.579.2.462 Unknown [id number] 2.16.840.1.703979.3.579.2.462 Unknown [id number] 2.840.1.617193.3.579.2.462 Unknown [id number] 2.840.1.096175.3.579.2.462 Unknown [id number] 2.840.1.314220.3.579.2.462 Unknown [id number] 2.840.1.994781.3.579.2.462 Unknown [id number] 2.840.1.603570.3.579.2.462 Unknown [id number] 2.840.1.148966.3.579.2.462 Unknown [id number] 2.840.1.135834.3.579.2.462 Unknown [id number] 2.840.1.383601.3.579.2.462 Unknown [id number] 2.840.1.198053.3.579.2.462 Unknown [id number] 2.840.1.437111.3.579.2.462 Unknown [id number] 2.840.1.047357.3.579.2.462 Unknown [id number] 2.840.1.465977.3.579.2.462 Unknown [id number] 2.840.1.447137.3.579.2.462 Unknown [id number] 2.16840.1.954574.3.579.2.462 Unknown [id number] 2.840.1.225093.3.579.2.462 Unknown [id number] 2.840.1.770718.3.579.2.462 Unknown [id number] 2.16.840.1.510917.3.579.2.462 Unknown [id number] 2.16.840.1.320959.3.579.2.462 Unknown [id number] 2.16.840.1.229341.3.579.2.462 Unknown [id number] 2.16.840.1.198647.3.579.2.462 Unknown [id number] 2.16.840.1.866195.3.579.2.462 Unknown [id number] 2.16.840.1.195046.3.579.2.462 Social History Date Type Detail Facility [facility] Work Phone: Start: 10-24-2021 End: 06-27-2023 Tobacco smoking status UTIS Unknown if ever smoked [facility] Start: 1990 Sex Assigned At Female [facility] Start: 03-03-2013 End: 11-25-2024 Tobacco smoking status UTIS Smokes tobacco daily [facility] Work Phone: History of tobacco use Cigarette Smoker [facility] Start: 05-15-2021 End: 02-02-2022 Alcohol intake Current drinker of alcohol (finding) [facility] Start: 05-03-2013 History SDOH Alcohol Comment Seldom [facility] Start: 1990 Sex Assigned At Not on file [facility] Start: 04-15-2021 End: 01-24-2023 Exposure to SARS-CoV-2 (event) Not sure [facility] Work Phone: Start: 03-03-2013 End: 02-10-2023 Cigarettes smoked current (pack per day) - Reported 0.5 [facility] Start: 03-03-2013 End: 06-26-2024 Tobacco use and exposure Smokeless tobacco non-user [facility] Start: 01-10-2023 Tobacco smoking status Smoker (findi ng) [facility] Start: 01-24-2023 End: 02-10-2023 Alcohol Use Disorder Identification Test - Consumption [AUDIT-C] [facility] How often to you hav e a drink containing alcohol? Monthly or less [facility] How many standard dr inks containing alcohol do you have on a typical day? 1 or 2 [facility] How often do you hav e 6 or more drinks on 1 occasion? Less than monthly [facility] Start: 01-24-2023 Alcohol Comment occ. [facility] Score (1-10 0), lower number is lower risk 92 [facility] Work Phone: Start: 02-19-2023 End: 07-03-2024 Alcohol intake Ex-drinker (finding) [facility] Start: 02-18-2023 Alcohol Comment rare [facility] (I/We) worried tunde er (my/our) food would run out before (I/we) got money to buy more. Never true [facility] Work Phone: In the past 12 month s, was there a time when you were not able to pay the mortgage or rent on time? No [facility] Work Phone: Start: 10-19-2024 End: 11-01-2024 Sex Female (finding) [facility] Start: 12-30-2024 End: 01-02-2025 Tobacco smoking status NHIS Ex-smoker (finding) [facility] NEGATED: Highlighted row [facility] NEGATED: Highlighted row Not [facility] Medical Equipment Procedure Code Equipment Code Equipment Origin al Text Equipment Identifier Dates Repair, tendon, Achilles BIOSKIN, 2 X 4 FDA Start: 12-24-2023 Repair, tendon, Achilles FIBERTAPE FDA Start: 12-24-2023 Repair, tendon, Achilles SUTURETAPE,FIBER LOOP FDA Start: 12-24-2023 Repair, tendon, Achilles Aria [employer] Xpress System FDA Start: 12-24-2023 Repair, tendon, Achilles [place] [employer] FDA Start: 12-24-2023 Repair, tendon, Achilles VIAFLOW, 1CC FDA Start: 12-24-2023 Repair, tendon, Achilles Guevara Graft Jacket Now Standard FDA Start: 12-24-2023 Repair, tendon, Achilles ([id number] FDA Start: 12-24-2023 Repair, tendon, Achilles BIOSKIN, 2 X 4 FDA Start: 12-24-2023 Repair, tendon, Achilles FIBERTAPE FDA Start: 12-24-2023 Repair, tendon, Achilles SUTURETAPE,FIBER LOOP FDA Start: 12-24-2023 Repair, tendon, Achilles [place] [employer] FDA Start: 12-24-2023 Repair, tendon, Achilles [place] [employer] FDA Start: 12-24-2023 Repair, [...] LOOP FDA Start: 12-24-2023 Repair, tendon, Achilles [place] [employer] FDA Start: 12-24-2023 Repair, tendon, Achilles [place] [employer] FDA Start: 12-24-2023 Repair, tendon, Achilles VIAFLOW, 1CC FDA Start: 12-24-2023 Repair, tendon, Achilles Guevara Graft Jacket Now Standard FDA Start: 12-24-2023 Repair, tendon, Achilles BIOSKIN, 2 X 4 FDA Start: 12-24-2023 Repair, tendon, Achilles FIBERTAPE FDA Start: 12-24-2023 Repair, tendon, Achilles SUTURETAPE,FIBER LOOP FDA Start: 12-24-2023 Repair, tendon, Achilles [place] [employer] FDA Start: 12-24-2023 Repair, tendon, Achilles [place] [employer] FDA Start: 12-24-2023 Repair, tendon, Achilles VIAFLOW, 1CC FDA Start: 12-24-2023 Repair, tendon, Achilles Guevara Graft Jacket Now Standard FDA Start: 12-24-2023 Repair, tendon, Achilles BIOSKIN, 2 X 4 FDA Start: 12-24-2023 Repair, tendon, Achilles FIBERTAPE FDA Start: 12-24-2023 Repair, tendon, Achilles SUTURETAPE,FIBER LOOP FDA Start: 12-24-2023 Repair, tendon, Achilles [place] [employer] FDA Start: 12-24-2023 Repair, tendon, Achilles [place] [employer] FDA Start: 12-24-2023 Repair, tendon, Achilles VIAFLOW, 1CC FDA Start: 12-24-2023 Repair, tendon, Achilles Guevara Graft Jacket Now Standard FDA Start: 12-24-2023 Repair, tendon, Achilles BIOSKIN, 2 X 4 FDA Start: 12-24-2023 Repair, tendon, Achilles FIBERTAPE FDA Start: 12-24-2023 Repair, tendon, Achilles SUTURETAPE,FIBER LOOP FDA Start: 12-24-2023 Repair, tendon, Achilles Aria [employer] System FDA Start: 12-24-2023 Repair, tendon, Achilles [place] [employer] FDA Start: 12-24-2023 Repair, tendon, Achilles VIAFLOW, 1CC FDA Start: 12-24-2023 Repair, tendon, Achilles Guevara Graft Jacket Now Standard FDA Start: 12-24-2023 Repair, tendon, Achilles BIOSKIN, 2 X 4 FDA Start: 12-24-2023 Repair, tendon, Achilles FIBERTAPE FDA Start: 12-24-2023 Repair, tendon, Achilles SUTURETAPE,FIBER LOOP FDA Start: 12-24-2023 Repair, tendon, Achilles [place] Citrefix Xpress System FDA Start: 12-24-2023 Repair, tendon, Achilles [place]ria Citrefix Xpress System FDA Start: 12-24-2023 Repair, tendon, Achilles VIAFLOW, 1CC FDA Start: 12-24-2023 Repair, tendon, Achilles Guevara Graft Jacket Now Standard FDA Start: 12-24-2023 Repair, tendon, Achilles BIOSKIN, 2 X 4 FDA Start: 12-24-2023 Repair, tendon, Achilles FIBERTAPE FDA Start: 12-24-2023 Repair, tendon, Achilles SUTURETAPE,FIBER LOOP FDA Start: 12-24-2023 Repair, tendon, Achilles [place] Cit[employer]ix Xpress System FDA Start: 12-24-2023 Repair, [...] FDA Start: 07-23-2023 Incision and drainage, abscess ([id number] FDA Start: 07-23-2023 Incision and drainage, abscess [...] Incision and drainage, abscess FDA Start: 07-23-2023 [id number], [id number] Start: 11-27-2013 End: 02-18-2023 Comment on above: Test blood sugar(s) 1 times daily. Dx: 250.02. Insulin: No Test blood sugar(s) 1 daily. Dx: 250.02. Insulin: No Goals Date Patient Goal Desired Activity /State Functional Status Date Assessment Result Facility 01-01-2025 Functional status Ambulates;Up ad nella [facility] Work Phone: 12-31-2024 Functional status Ambulates;Bathroom [facility] Work Phone: 11-28-2024 Functional status Ambulates;Up ad nella [facility] Work Phone: 05-09-2023 Functional status Ambulates;Up nella [facility] Work Phone: 02-11-2023 Functional Status Sequential Com pression Device bilateral knee high removed/off [facility] 02-11-2023 Functional Status Driving, 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, 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, Laundry, Meal preparation, Personal ADL, Shopping [facility] 02-11-2023 Functional Status Identified as high risk, Fall ID band on, Door open, Room check performed [facility] 02-11-2023 [facility] Functional Status [facility] 02-11-2023 Functional Status Patient refused [facility] 02-10-2023 Functional Status [facility] 01-15-2023 Functional status Up ad nella [facility] Work Phone: 01-10-2023 Functional Status Independent [facility] 01-10-2023 Functional Status Standard Safet y Call device within reach, Bed in low position, Wheels locked, Safety level maintained [facility] 08-15-2022 Functional status Ambulates [facility] Work Phone: 06-29-2022 Functional status Ambulates;Up a d nella;Bedside Commode [facility] Work Phone: 06-25-2022 Functional status Ambulates;Up a d nella;Bathroom Privilege [facility] Work Phone: 04-09-2022 Functional status Bedside [facility] Work Phone: Mental Status Date Assessment Result Facility 01-01-2025 Cognitive function Voice/Name [facility] Work Phone: 12-31-2024 Cognitive function Voice/Name [facility] Work Phone: 11-28-2024 Cognitive function Voice/Name [facility] Work Phone: 07-23-2023 Cognitive function [facility]/Name [facility] Work Phone: 05-08-2023 Cognitive function [facility]/Name [facility] Work Phone: 02-11-2023 Mental Status [facility]ed x [facility] 02-11-2023 Mental Status [facility] 02-10-2023 Mental Status [facility] 01-14-2023 Cognitive function Appropriate;Cooperativ e [facility] Work Phone: 01-10-2023 Mental Status Orientation Oriented x 4 [facility] 08-15-2022 Cognitive function Voice/Name [facility] Work Phone: 08-12-2022 Cognitive function Level Of Cons ciousness Awake;Alert;Appropriate [facility] Work Phone: 06-29-2022 Cognitive function Voice/Name [facility] Work Phone: 06-25-2022 Cognitive function Voice/Name [facility] Work Phone: 04-09-2022 Cognitive function Voice/Name [facility] Work Phone: Clinical Notes 04-28-2013 to 01-01-2025 Note Date & Type Note Facility 01-01-[address] [facility] 01-01-2025 History and physi jose g note Note Date/Time January 01, 2025 6:02am [facility] Medical Records Department [address] [place] [address] H&P Exam - Hospitalist 12/31/24 2233 MR#: [id number] Acct: [id number] Name: GHISLAINE GIVENS Rep #:[id number] : 1990 34 From: Dewayne Solis DO PCP: BROOKLYN Warren, BOAT HOIST OPERATOR-C Statu s:ADM IN Location: ICU CVICU20 [...] December 31, 2024 who now re-presents to [facility] ER complaining of hyperglycemia with intractable [...] that expected to extend beyond 2 midnights. [facility] Medical History Type 2 diabetes mellitus with [...] % (Auto) 64.4, Lymph % (Auto) 27.7, Young % (Auto) 6.4, Eos % (Auto) 0.3, [...] Clarity Cloudy, Urine pH 6.0, Ur Specific [place] 1.020, Urine Protein 30 H, Urine Glucose [...] 75 minutes. Charges/Coding Visit Charges Inpatient E&M: 31536 Init Hosp L3 01/01/25 0602 <Electronically signed by Dewayne Grant DO> Cosigner Signature (if applicable): CC: BROOKLYN BOAT HOIST OPERATOR-C Amy Solorzano; Dr. Dewayne Grant DO~ Signed [facility] Work Phone: 1(657) 535-876106-23-2025 Discharge summary Author Poli Barfield [facility] Note Date/Time December 31, 2024 11:5 1pm [facility] Medical Records Department [address] [place] [address] Emergency Department Summary 12/31/24 MR#: [id number] Acct: [id number] Name: GHISLAINE GIVENS Rep #:[id number] : 1990 34 From: Poli Farah PCP: BROOKLYN Warren, BOAT HOIST OPERATOR-C Statu s:ADM IN Location: ICU CVICU20 3-[address] Poli Barfield DO on 12/31/24 at 2351 EKG: Sinus rate of 82, no ST changes. QTc 422. 12/31/24 2351<Electronically signed by Poli Farah> Cosigner Signature (if applicable): cc: BROOKLYN BOAT HOIST OPERATOR-C Amy Solorzano ~* Signed HPI History of Present [...] No urinary symptoms. Prior similar symptoms: Yes [facility] Medical History (Updated 12/31/24 @ 23:07 by [...] clinician: Hospitalist This note was generated with Designlab dictation software. It may contain incorrectwords, spelling, [...] % (Auto) 64.4 Lymph % (Auto) 27.7 Young % (Auto) 6.4 Eos % (Auto) 0.3 [...] Clarity Cloudy Urine pH 6.0 Ur Specific [place] 1.020 Urine Protein 30 H Urine Glucose [...] MCHC RDW Std Deviation RDW Coeff of Jonh Plt Count MPV Immature Gran % (Auto) Neut % (Auto) Lymph % (Auto) Young % (Auto) Eos % (Auto) Baso % (Auto) Absolute Neuts (auto) Absolute Lymphs (auto) Nucleated RBC % Sodium 139 Potassium 3.7 Chloride 108 Carbon Dioxide 18.2 L Anion Gap 13 BUN 7 Creatinine 0.85 Estim Creat Clear Calc 118.14 Est GFR (MDRD) Non-Af 93 BUN/Creatinine Ratio 8.0 L Glucose 177 H Calcium 8.2 b-Hydroxybutyric mmol/L Urine Color Urine Clarity Urine pH Ur Specific [place] Urine Protein Urine Glucose (UA) Urine Ketones [...] (excluding procedures): 30-74 minutes, Discussing w/Patient &/or Family/Horseshoer, Arranging Admission or Transfer, Performing Direct Patient [...] Care Provider: Amy Solorzano Referrals: Amy Solorzano, BOAT HOIST OPERATOR-C [Primary Care Provider] - Print Language: Icelandic Disposition Disposition: Acute Care Hospital [facility] What to do if you have Problems For any increased pain, shortness of breath, bleeding, nausea or vomiting, chestpain, or any unexpected problems, contact your Primary Care Provider. Call [facility] ([phone]) or report to the closest Emergency Room. Call 911 if necessary. 12/31/242306 <Electronically signed by Poli Farah> Cosigner Signature (if applicable): CC: BROOKLYN BOAT HOIST OPERATORKaykay Solorzano ~ Signed [facility] Work Phone: 1([phone]) 583-471706-22-2025 Discharge summary Author Poli Barfield [facility] Note Date/Time December 31, 2024 11:0 7pm [facility] Medical Records Department [address] [place] [address] Emergency Department Summary 12/31/24 MR#: [id number] Acct: [id number] Name: GHISLAINE GIVENS Rep #:[id number] : 1990 34 From: Poli Farah PCP: BROOKLYN Warren, BOAT HOIST OPERATOR-C Statu s:REG ER Location: ED HPI [...] urinary symptoms. Prior similar symptoms: Yes PFSH PFSH Medical History (Updated 12/31/24 @ 23:07 by [...] clinician: Hospitalist This note was generated with Designlab dictation software. It may contain incorrectwords, spelling, [...] % (Auto) 64.4 Lymph % (Auto) 27.7 Young % (Auto) 6.4 Eos % (Auto) 0.3 [...] Clarity Cloudy Urine pH 6.0 Ur Specific [place] 1.020 Urine Protein 30 H Urine Glucose [...] (Auto) Neut % (Auto) Lymph % (Auto) Young % (Auto) Eos % (Auto) Baso % (Auto) Absolute Neuts (auto) Absolute Lymphs (auto) Nucleated RBC % Sodium 139 Potassium 3.7 Chloride 108 Carbon Dioxide 18.2 L Anion Gap 13 BUN 7 Creatinine 0.85 Estim Creat Clear Calc 118.14 Est GFR (MDRD) Non-Af 93 BUN/Creatinine Ratio 8.0 L Glucose 177 H Calcium 8.2 b-Hydroxybutyric mmol/L Urine Color Urine Clarity Urine pH Ur Specific [place] Urine Protein Urine Glucose (UA) Urine Ketones [...] (excluding procedures): 30-74 minutes, Discussing w/Patient &/or Family/Horseshoer, Arranging Admission or Transfer, Performing Direct Patient [...] Care Provider: Amy Solorzano Referrals: Amy Solorzano, BOAT HOIST OPERATOR-C [Primary Care Provider] - Print Language: Icelandic Disposition Disposition: Acute Care Hospital [facility] What to do if you have Problems For any increased pain, shortness of breath, bleeding, nausea or vomiting, chestpain, or any unexpected problems, contact your Primary Care Provider. Call [facility] ([phone]) or report to the closest Emergency Room. Call 911 if necessary. 12/31/242306 <Electronically signed by Poli Farah> Cosigner Signature (if applicable): CC: BROOKLYN BOAT HOIST OPERATOR-C Amy Solorzano ~ Signed [facility] Work Phone: 1([phone]) 242-992306-22-2025 [facility]06-22-2025 Discharge summary Author Poli Barfield [facility] Note Date/Time December 30, 2024 10:3 2pm [facility] Medical Records Department [address] [facility] [place] [address] Emergency Department Summary 12/30/24 MR#: [id number] Acct: [id number] Name: GHISLAINE GIVENS Rep #:[id number] : 1990 34 From: Poli Farah PCP: Amy Solorzano Sara, BOAT HOIST OPERATOR-C Statu s:ADM IN Location: ICU CVICU20 [...] subcut SA 11/25/24 History subcutaneous pen [facility] ([facility] linaclotide 145 mcg capsule 145 mcg PO [...] clinician: Hospitalist This note was generated with Designlab dictation software. It may contain incorrectwords, spelling, [...] (Auto) 70.7 H Lymph % (Auto) 23.6 Young % (Auto) 4.8 Eos % (Auto) 0.0 [...] Sl. Cloudy Urine pH 5.0 Ur Specific [place] 1.025 Urine Protein 30 H Urine Glucose [...] (excluding procedures): 30-74 minutes, Discussing w/Patient &/or Family/Horseshoer, Arranging Admission or Transfer, Performing Direct Patient Care at Bedside and - (35 minutes) Discharge Plan Dx/Rx/DC Orders Clinical Impression: Diabetic ketoacidosis, Cyclic vomiting syndrome, History of diabetes mellitus, NAI (acute kidney injury) Disposition Disposition: Acute Care Hospital [facility] Discharge Date/Time: 12/30/24 13:08 What to do if you have Problems For any increased pain, shortness of breath, bleeding, nausea or vomiting, chestpain, or any unexpected problems, contact your Primary Care Provider. Call [facility] ([phone]) or report to the closest Emergency Room. Call 911 if necessary. 12/30/242231 <Electronically signed by Poli Farah> Cosigner Signature (if applicable): CC: BROOKLYN BOAT HOIST OPERATOR-C Amy Solorzano ~ Signed [facility] Work Phone: 1(497) 639-626906-21-2025 Discharge summary [facility] Medical Records Department [address] [place] [address] Emergency Department Summary 12/30/24 MR#: [id number] Acct: [id number] Name: GHISLAINE GIVENS Rep #:[id number] : 1990 34 From: Poli Farah PCP: Amy Solorzano, BROOKLYN, BOAT HOIST OPERATOR-Sara Statu s:ADM IN Location: ICU CVICU20 3-1 [...] clinician: Hospitalist This note was generated with Designlab dictation software. It may contain incorrectwords, spelling, [...] (Auto) 70.7 H Lymph % (Auto) 23.6 Young % (Auto) 4.8 Eos % (Auto) 0.0 [...] Sl. Cloudy Urine pH 5.0 Ur Specific [place] 1.025 Urine Protein 30 H Urine Glucose [...] kidney injury) Disposition Disposition: Acute Care Hospital [facility] Discharge Date/Time: 12/30/24 13:08 What to do if you have Problems For any increased pain, shortness of breath, bleeding, nausea or vomiting, chestpain, or any unexpected problems, contact your Primary Care Provider. Call [facility] ([phone]) or report tothe closest Emergency Room. Call 911 if necessary. 12/30/24 2452 Cosigner Signature (if applicable): CC: BROOKLYN BOAT HOIST OPERATOR-C Amy Solorzano ~ Signed [facility]06-21-2025 History and physical note Author David Bain [facility] Note Date/Time December 30, 2024 1:09 pm [facility] Medical Records Department [address] [place] [address] H&P Exam - Hospitalist 12/30/24 1248 MR#: [id number] Acct: [id number] Name: GHISLAINE GIVENS Rep #:[id number] : 1990 34 From: David Gupta PCP: BROOKLYN Warren, BOAT HOIST OPERATOR-C Statu s:ADM IN Location: ICU CVICU20 [...] DKA therefore admitted. Vitals in normal limit. [facility] Medical History Diabetes GERD (gastroesophageal reflux [...] (Auto) 70.7 H, Lymph % (Auto) 23.6, Young % (Auto) 4.8, Eos % (Auto) 0.0, [...] Sl. Cloudy, Urine pH 5.0, Ur Specific [place] 1.025, Urine Protein 30 H, Urine Glucose [...] for 2 weeks. Weight loss counseling done. Stationary Engineer Refrigeration consult DVT prophylaxis, low risk: Early ambulation encouraged Living will/advanced directive/end of life care: Patient does not have living will or advanced directive. She does not have the year power of prosecuting attorney for health. After discussion of benefits/risks procedures involved with full code,DNR CC arrest and DNR CC, the patient opted for full code. Patient does want artificial life support including intubation, tube feed, ventilator and/chest compression, central venous catheter, vasopressor and DC shock if needed Total time spent in lllg-ui-mxis encounter in discussion of advanced directive 17 minutes. Charges/Coding Visit Charges Inpatient E&M: 55172 Init Hosp L3 Procedures Hospitalists Procedures: 82332 Advncd Care Plan 30 Min 12/30/24 1309 <Electronically signed by David Bain MD> Cosigner Signature (if applicable): CC: VSC BOAT HOIST OPERATOR-C Amy Solorzano; Dr. David Bain MD~ Signed [facility] Work Phone: 1([phone]) 460-235906-21-2025 History and physical note [facility] Medical Records Department [address] [place] [address] H&P Exam - Hospitalist 12/30/24 1248 MR#: [id number] Acct: [id number] Name: GHISLAINE GIVENS Rep #:[id number] : 1990 34 From: David Gupta PCP: BROOKLYN Warren, BOAT HOIST OPERATOR-C Statu s:ADM IN Location: ICU CVICU20 [...] DKA therefore admitted. Vitals in normal limit. [facility] Medical History Diabetes GERD (gastroesophageal reflux [...] (Auto) 70.7 H, Lymph % (Auto) 23.6, Young % (Auto) 4.8, Eos % (Auto) 0.0, [...] Sl. Cloudy, Urine pH 5.0, Ur Specific [place] 1.025, Urine Protein 30 H, Urine Glucose [...] for 2 weeks. Weight loss counseling done. Stationary Engineer Refrigeration consult DVT prophylaxis, low risk: Early ambulation encouraged Living will/advanced directive/end of life care: Patient does not have living will or advanced directive. She does not have the year power of prosecuting attorney for health. After discussion of benefits/risks procedures involved with full code,DNR CC arrest and DNR CC, the patient opted for full code. Patient does want artificial life support including intubation, tube feed, ventilator and/chest compression, central venous catheter, vasopressor and DC shock if needed Total time spent in odgm-hs-htsm encounter in discussion of advanced directive 17 minutes. Charges/Coding Visit Charges Inpatient E&M: 59241 Init Hosp L3 Procedures Hospitalists Procedures: 98296 Advncd Care Plan 30 Min 12/30/24 1309 Cosigner Signature (if applicable): CC: Sara CUMMINS-C Amy Solorzano; Dr. David Bain MD~ Signed [facility]06-16-2025 Radiology Diagnostic study note [facility] Imaging Services [address] [place] [address] Abdomen Limited MR#: [id number] Acct: [id number] Name: GHISLAINE GIVENS Rep #: [id number] : 1990 F 34 From: Yamila Mcginnis MD PCP: BROOKLYN Warren, BOAT HOIST OPERATOR-C Status: REG CLI Study:Abdomen Limited Date of Exam: 12/10 01/03 Exam# [id number] Ordering Dr: Nayana Peter PROCEDURE: ABDOMEN LIMITED [...] of cholelithiasis or acute cholecystitis. Reading [facility] CC: BROOKLYN Solorzano; MIGUEL A [place] ~ [employer] Worker: Signed [facility]05-20-2025 Discharge summary [facility] Medical Records Department [address] [place] [address] Discharge Summary 11/28/24 1203 MR#: [id number] Acct: [id number] Name: GHISLAINE GIVENS Rep #:[id number] : 1990 34 From: Gale Lr DO PCP: BROOKLYN Warren, PATRICE Statu s:ADM IN [facility] Providers Date of Admission: 11/25/24 Date of [...] who presented to the emergency department at [facility] on 11/25/2024 with a chief complaint [...] fatty infiltration. [facility] with stercoral proctocolitis and overflow diarrheain [...] (Auto) 49.8, Lymph % (Auto) 43.0 H, Young % (Auto) 5.3, Eos % (Auto) 0.5, [...] as compared to prior study. Reading Location: [facility] D/C Instructions Discharge Diet: 1800 Calorie [...] Gale Lr Primary Care Provider: Amy Solorzano [facility] Consulting Providers: Annalise Welch; Brenda Rao Instructions [...] tomorrow to set up appointment) Amy Solorzano, BOAT HOIST OPERATOR-C [Primary Care Provider] - In 1 Week Disposition Disposition (needs filled in before D/C Order can be placed): Home, Self Care Charges/Coding Visit Charges Inpatient E&M: 42832 Disch Hosp >30min 11/28/24 1231 Cosigner Signature (if applicable): CC: BROOKLYN CUMMINS-C Amy Solorzano; Dr. Gale Lr DO~ Signed [facility]05-20-2025 [facility]05-20-2025 Progress note Author Clare Loo [facility] Note Date/Time November 28, 2024 8:41a m [facility] Medical Records Department [address] [place] [address] Progress Note - Surgery 11/28/24 0757 MR#: [id number] Acct: [id number] Name: GHISLAINE GIVENS Rep #:[id number] : 1990 34 From: Clare GRADY PA-C PCP: BROOKLYN Warren, BOAT HOIST OPERATOR-C Statu s:ADM IN Location: MS3 WX362-2 Subjective Subjective Patient was walking the hallway [...] (Auto) 49.8, Lymph % (Auto) 43.0 H, Young % (Auto) 5.3, Eos % (Auto) 0.5, [...] as compared to prior study. Reading Location: [place] [address] Physical Exam GI GI Narrative: Abdomen- soft, [...] 1 week Charges/Coding Visit Charges Inpatient E&M: 24102 Subs Hosp L2 11/28/24 0841 <Electronically signed by Clare GRADY PA-C> Cosigner Signature (if applicable): CC: ~ Signed [facility] Work Phone: 1(579) 773-731105-20-2025 Progress note [facility] Medical Records Department [address] [place] [address] Progress Note - Surgery 11/28/24 8113 MR#: [id number] Acct: [id number] Name: GHISLAINE GIVENS Rep #:[id number] : 1990 34 From: Clare GRADY PA-C PCP: Amy Rashad, VSC, BOAT HOIST OPERATOR-C Statu s:ADM IN Location: MS3 ES765-5 Subjective Subjective Patient was walking the hallway [...] (Auto) 49.8, Lymph % (Auto) 43.0 H, Young % (Auto) 5.3, Eos % (Auto) 0.5, [...] as compared to prior study. Reading Location: [facility] Physical Exam GI GI Narrative: Abdomen- [...] 1 week Charges/Coding Visit Charges Inpatient E&M: 93787 Subs Hosp L2 11/28/24 0841 Cosigner Signature (if applicable): CC: ~ Signed [facility]05-19-2025 Progress note Author Gale Lr [facility] Note Date/Time November 27, 2024 3:45p m [facility] Medical Records Department [address] [place] [address] Progress Note - Hospitalist 11/27/24 0759 MR#: [id number] Acct: [id number] Name: GHISLAINE GIVENS Rep #:[id number] : 1990 34 From: Gale Lr DO PCP: Amy Solorzano Sara, BOAT HOIST OPERATOR-C Statu s:ADM IN Location: MS3 SD853-7 Reason for Visit Reason for Visit: Abdominal [...] (Auto) 75.9 H, Lymph % (Auto) 18.1L, Young % (Auto) 5.2, Eos % (Auto) 0.0, [...] fecal impaction of the rectum. Reading Location: [facility] Physical Exam Const alert, oriented x3 and [...] cessation discussed with patient Acute proctitis/colitis - Porter to be stercoral colitis from severe constipation [...] Full code Charges/Coding Visit Charges Inpatient E&M: 39327 Subs Hosp L2 11/27/24 4991 <Electronically signed by Gale Lr DO> Cosigner Signature (if applicable): CC: ~ Signed [facility] Work Phone: 1(899) 982-927205-19-2025 Progress note Author Clare Loo [facility] Note Date/Time November 27, 2024 2:35p m [facility] Medical Records Department [address] [place] [address] Progress Note - Surgery 11/27/24 0845 MR#: [id number] Acct: [id number] Name: GHISLAINE GIVENS Rep #:[id number] : 1990 34 From: Clare GRADY PA-C PCP: Amy Solorzano C, BOAT HOIST OPERATOR-C Statu s:ADM IN Location: MS3 UQ066-9 Subjective Subjective Patient evaluated rolling restlessly in [...] (Auto) 75.9 H, Lymph % (Auto) 18.1L, Young % (Auto) 5.2, Eos % (Auto) 0.0, [...] this patient Charges/Coding Visit Charges Inpatient E&M: 99315 Subs Hosp L2 11/27/24 0853 <Electronically signed [...] Cosigner Signature (if applicable): cc: ~* Signed [facility] Work Phone: 1(763) 139-740605-19-2025 Progress note [facility] Medical Records Department [address] [place] [address] Progress Note - Hospitalist 11/27/24 3910 MR#: [id number] Acct: [id number] Name: GHISLAINE GIVENS Rep #:[id number] : 1990 34 From: Gale Lr DO PCP: BROOKLYN Warren, BOAT HOIST OPERATOR-C Statu s:ADM IN Location: MS3 KW631-0 Reason for Visit Reason for Visit: Abdominal [...] (Auto) 75.9 H, Lymph % (Auto) 18.1L, Young % (Auto) 5.2, Eos % (Auto) 0.0, [...] fecal impaction of the rectum. Reading Location: [facility] Physical Exam Const alert, oriented x3 and [...] cessation discussed with patient Acute proctitis/colitis - Porter to be stercoral colitis from severe constipation [...] Full code Charges/Coding Visit Charges Inpatient E&M: 77687 Subs Hosp L2 11/27/24 2757 Cosigner Signature (if applicable): CC: ~ Signed [facility]05-19-2025 Progress note [facility] Medical Records Department [address] [facility] [place] [address] Progress Note - Surgery 11/27/24 0845 MR#: [id number] Acct: [id number] Name: GHISLAINE GIVENS Rep #:[id number] : 1990 34 From: Clare GRADY PA-C PCP: BROOKLYN Warren, BOAT HOIST OPERATOR-C Statu s:ADM IN Location: MS3 PE856-3 Subjective Subjective Patient evaluated rolling restlessly in [...] (Auto) 75.9 H, Lymph % (Auto) 18.1L, Young % (Auto) 5.2, Eos % (Auto) 0.0, [...] this patient Charges/Coding Visit Charges Inpatient E&M: 49490 Subs Hosp L2 11/27/24 0853 Cosigner Signature [...] Cosigner Signature (if applicable): cc: ~* Signed [facility]05-19-2025 Radiology Diagnostic study note [facility] [address] [place] [address] Abdomen/Pelvis WITH Contrast MR#: [id number] Acct: [id number] Name: GHISLAINE GIVENS Rep #: [id number] : 1990 F 34 From: Fortino Sadler MD PCP: Amy Solorzano [facility], BOAT HOIST OPERATOR-C Status: ADM IN Study:Abdomen/Pelvis WITH Contrast Date of Ex am: 11/27/24 Exam# [id number] Ordering Dr: Clare Loo PA-C PROCEDURE: ABDOMEN/PELVIS [...] as compared to prior study. Reading Location: [place] [address] CC: ESCOBAR Loo; BROOKLYN Solorzano ~ [employer] Worker: Signed [facility]05-18-2025 Progress note Author Brenda [facility] Note Date/Time November 26, 2024 9:20a m [facility] Medical Records Department [address] [place] [address] Progress Note 11/26/24 0909 MR#: [id number] Acct: [id number] Name: GHISLAINE GIVENS Rep #:[id number] : 1990 34 From: Brenda Rao MD PCP: Amy Solorzano, BROOKLYN, PATRICE Statu s:ADM IN Location: [place]3 LX168-2 Subjective Subjective Patient seen and examined. She [...] 79.5 H, Lymph % (Auto) 11.4 L, Young % (Auto) 8.0, Eos % (Auto) 0.1, [...] Clarity Cloudy, Urine pH 6.0, Ur Specific [place] 1.025, Urine Protein 30 H, Urine Glucose [...] (Auto) 73.4 H, Lymph % (Auto) 19.4, Young % (Auto) 6.2, Eos % (Auto) 0.2, [...] the colon consistent with constipation. Reading Location: [facility] Abdomen/Pelvis CT 11/25/24 11:32 IMPRESSION: 1. Fecal impaction with apparent wall thickening of the distal colon and rectumsuggesting proctitis and colitis. Clinical correlation is recommended. 2. Hepatomegaly with fatty infiltration. Reading Location: [facility] KUB X-Ray 11/26/24 08:10 IMPRESSION: Constipation with suggestion of fecal impaction of the rectum. Reading Location: [facility] Physical Exam Const alert and oriented x3 [...] Full code Charges/Coding Visit Charges Inpatient E&M: 88719 Subs Hosp L2 11/26/24 7058 <Electronically signed by Brenda Rao MD> Brenda Rao MD Cosigner Signature (if applicable): CC: ~ Signed [facility] Work Phone: 1(893) 633-806605-18-2025 History and physical note Author Brenda [facility] Note Date/Time November 26, 2024 7:54a m [facility] Medical Records Department [address] [place] [address] H&P Exam - Hospitalist 11/25/24 1324 MR#: [id number] Acct: [id number] Name: GHISLAINE GIVENS Rep #:[id number] : 1990 34 From: Brenda Rao MD PCP: BROOKLYN Warren, BOAT HOIST OPERATOR-C Statu s:ADM IN [place] [facility] [id number] HPI - General General Date of Admission: [...] of severe constipation with likely overflow diarrhea. [facility] Medical History (Updated 11/25/24 @ 15:05 [...] 79.5 H, Lymph % (Auto) 11.4 L, Young % (Auto) 8.0, Eos % (Auto) 0.1, [...] Clarity Cloudy, Urine pH 6.0, Ur Specific [place] 1.025, Urine Protein 30 H, Urine Glucose [...] the colon consistent with constipation. Reading Location: [facility] Abdomen/Pelvis CT 11/25/24 11:32 IMPRESSION: 1. Fecal impaction with apparent wall thickening of the distal colon and rectumsuggesting proctitis and colitis. Clinical correlation is recommended. 2. Hepatomegaly with fatty infiltration. Reading Location: [facility] Assessment & Plan Assessment/Plan (1) Colitis: (2) Acute proctitis: (3) Fecal impaction: PLAN: Plan # Stercoral proctocolitis with overflow diarrhea in the setting of severe constipation with fecal impaction * Admit to [facility]. Admitted with a complaint of [...] Full code Charges/Coding Visit Charges Inpatient E&M: 95578 Init Hosp L2 11/26/24 0754 <Electronically signed by Brenda Rao MD> Cosigner Signature (if applicable): CC: BROOKLYN BOAT HOIST OPERATOR-C Amy Solorzano; Dr. Brenda Rao MD~ Signed [facility] Work Phone: 1(647) 876-275505-18-2025 Consult note Author [facility]nalise [facility] Note Date/Time November 26, 2024 7:47a m [facility] Medical Records Department [address] [place] [address] Consultation - Surgical 11/25/242050 MR#: [id number] Acct: [id number] Name: GHISLAINE GIVENS Rep #:[id number] : 1990 34 From: Annalise Welch MD PCP: BROOKLYN Warren, BOAT HOIST OPERATOR-C Statu s:ADM IN Location: [place] AL436-7 Assessment & Plan Assessment/Plan (1) Fecal impaction: (2) Acute proctitis: PLAN: Plan Discussed with patient would recommend additional enema to help soften the bowelof stool in the rectum. Along with additional ones after that. Continue IV Zosyn Discussed with patient plan to DC with laxatives. Annalise Welch M.D. Pager: [phone] [facility] [address] [place] [address], [facility], [address] [place] [address] Office: [phone] HPI Consult Data Date of Consult: 11/26/24 [...] and did have some results with it. [facility] Medical History (Updated 11/25/24 @ 15:05 [...] 79.5 H, Lymph % (Auto) 11.4 L, Young % (Auto) 8.0, Eos % (Auto) 0.1, [...] Clarity Cloudy, Urine pH 6.0, Ur Specific [place] 1.025, Urine Protein 30 H, Urine Glucose [...] the colon consistent with constipation. Reading Location: [facility] Abdomen/Pelvis CT 11/25/24 11:32 IMPRESSION: 1. Fecal impaction with apparent wall thickening of the distal colon and rectumsuggesting proctitis and colitis. Clinical correlation is recommended. 2. Hepatomegaly with fatty infiltration. Reading Location: [facility] Charges/Coding Visit Charges Inpatient E&M: 01837 Init Hosp L3 11/26/24 0747 <Electronically signed by Annalise Welch MD> Cosigner Signature (if applicable): CC: BROOKLYN Solorzano~ Signed [facility] Work Phone: 1(909) 964-498005-18-2025 Progress note Author Annalise Welch [facility] Note Date/Time November 26, 2024 7:47a m [facility] Medical Records Department [address] [place] [address] Progress Note - Surgery 11/26/24 0741 MR#: [id number] Acct: [id number] Name: GHISLAINE GIVENS Rep #:[id number] : 1990 34 From: Annalise Welch MD PCP: Amy Solorzano, [facility], BOAT HOIST OPERATOR-C Statu s:ADM IN Location: [place]3 XF545-5 Subjective Subjective Patient states she did have [...] 23:59 23:59 Intake Total 2049 / 2049 50 / 50 Balance 2049 50 [...] 79.5 H, Lymph % (Auto) 11.4 L, Young % (Auto) 8.0, Eos % (Auto) 0.1, [...] Clarity Cloudy, Urine pH 6.0, Ur Specific [place] 1.025, Urine Protein 30 H, Urine Glucose [...] (Auto) 73.4 H, Lymph % (Auto) 19.4, Young % (Auto) 6.2, Eos % (Auto) 0.2, [...] the colon consistent with constipation. Reading Location: [facility] Abdomen/Pelvis CT 11/25/24 11:32 IMPRESSION: 1. Fecal impaction with apparent wall thickening of the distal colon and rectumsuggesting proctitis and colitis. Clinical correlation is recommended. 2. Hepatomegaly with fatty infiltration. Reading Location: [facility] Physical Exam Const oriented x3 and no [...] improved from 27-17. Annalise Welch M.D. Pager: [phone] [facility] [address] [place] [address], [facility], [address] [place] [address] Office: [phone] Charges/Coding Multi Select Codes Visit Charges Visit Charges: 19567 Subs Hosp L2 11/26/24 0747 <Electronically signed by Annalise Welch MD> Cosigner Signature (if applicable): CC: ~ Signed [facility] Work Phone: 1([phone]) 663-721305-18-2025 Progress note [facility] Medical Records Department [address] [place] [address] Progress Note 11/26/24 0909 MR#: [id number] Acct: [id number] Name: GHISLAINE GIVENS Rep #:[id number] : 1990 34 From: Brenda Rao MD PCP: BROOKLYN Warren, BOAT HOIST OPERATOR-C Statu s:ADM IN Location: [place]3 HA686-6 Subjective Subjective Patient seen and examined. She [...] 79.5 H, Lymph % (Auto) 11.4 L, Young % (Auto) 8.0, Eos % (Auto) 0.1, [...] Clarity Cloudy, Urine pH 6.0, Ur Specific [place] 1.025, Urine Protein 30 H, Urine Glucose [...] (Auto) 73.4 H, Lymph % (Auto) 19.4, Young % (Auto) 6.2, Eos % (Auto) 0.2, [...] the colon consistent with constipation. Reading Location: [facility] Abdomen/Pelvis CT 11/25/24 11:32 IMPRESSION: 1. Fecal impaction with apparent wall thickening of the distal colon and rectumsuggesting proctitisand colitis. Clinical correlation is recommended. 2. Hepatomegaly with fatty infiltration. Reading Location: [facility] KUB X-Ray 11/26/24 08:10 IMPRESSION: Constipation with suggestion of fecal impaction of the rectum. Reading Location: [facility] Physical Exam Const alert and oriented x3 [...] Full code Charges/Coding Visit Charges Inpatient E&M: 20058 Subs Hosp L2 11/26/24 0997 Brenda Rao MD Cosigner Signature (if applicable): CC: ~ Signed [facility]05-18-2025 Radiology Diagnostic study note [facility] [address] [place] [address] Abdomen Single View MR#: [id number] Acct: [id number] Name: GHISLAINE GIVENS Rep #: [id number] : 1990 F 34 From: Alicja Barfield MD PCP: BROOKLYN Warren, BOAT HOIST OPERATOR-C Status: ADM IN Study:Abdomen Single View Date of Exam: 11/26/24 Exam# [id number] Ordering Dr: Annalise Welch MD EXAM: XR Abdomen, 1 View CLINICAL INDICATION: FECAL IMPACTION-RECTUM TECHNIQUE: Frontal supine view of the abdomen/pelvis. COMPARISON: No relevant prior studies available. FINDINGS: GASTROINTESTINAL TRACT: Constipation with suggestion of fecal impaction of the rectum. No dilation. BONES/JOINTS: Unremarkable. No acute fracture. RAD/Abdomen Single View IMPRESSION: Constipation with suggestion of fecal impaction of the rectum. Reading Location: [facility] CC: Sara BOAT HOIST OPERATOR-C Amy Solorzano; Dr. Annalise Welch MD ~ [employer] Worker: Signed [facility]05-18-2025 History and physical note [facility] Medical Records Department [address] [place] [address] H&P Exam - Hospitalist 11/25/24 1324 MR#: [id number] Acct: [id number] Name: GHISLAINE GIVENS Rep #:[id number] : 1990 34 From: Brenda Rao MD PCP: BROOKLYN Warren, BOAT HOIST OPERATOR-C Statu s:ADM IN Location: [place]3 SK139-5 HPI - General General Date of Admission: [...] of severe constipation with likely overflow diarrhea. [facility] Medical History (Updated 11/25/24 @ 15:05 [...] 79.5 H, Lymph % (Auto) 11.4 L, Young % (Auto) 8.0, Eos % (Auto) 0.1, [...] Clarity Cloudy, Urine pH 6.0, Ur Specific [place] 1.025, Urine Protein 30 H, Urine Glucose [...] the colon consistent with constipation. Reading Location: [facility] Abdomen/Pelvis CT 11/25/24 11:32 IMPRESSION: 1. Fecal impaction with apparent wall thickening of the distal colon and rectumsuggesting proctitisand colitis. Clinical correlation is recommended. 2. Hepatomegaly with fatty infiltration. Reading Location: [facility] Assessment & Plan Assessment/Plan (1) Colitis: (2) Acute proctitis: (3) Fecal impaction: PLAN: Plan # Stercoral proctocolitis with overflow diarrhea in the setting of severe constipation with fecal impaction * Admit to [facility]. Admitted with a complaint of [...] Full code Charges/Coding Visit Charges Inpatient E&M: 66941 Init Hosp L2 11/26/24 0867 Cosigner Signature (if applicable): CC: C BOAT HOIST OPERATOR-C Amy Solorzano; Dr. Brenda Rao MD~ Signed [facility]05-18-2025 Consult note [facility] Medical Records Department [address] [place] [address] Consultation - Surgical 11/25/242050 MR#: [id number] Acct: [id number] Name: GHISLAINE GIVENS Rep #:[id number] : 1990 34 From: Annalise Welch MD PCP: Amy Solorzano Sara, BOAT HOIST OPERATOR-C Statu s:ADM IN Location: [place] [address]-1 Assessment & Plan Assessment/Plan (1) Fecal impaction: (2) Acute proctitis: PLAN: Plan Discussed with patient would recommend additional enema to help soften the bowelof stool in the rectum. Along with additional ones after that. Continue IV Zosyn Discussed with patient plan to DC with laxatives. Annalise Welch M.D. Pager: [phone] [facility] [address] [place] [address], [facility], [address] [place] [address] Office: [phone] HPI Consult Data Date of Consult: 11/26/24 [...] ER and did havesome results with it. [facility] Medical History (Updated 11/25/24 @ 15:05 [...] 79.5 H, Lymph % (Auto) 11.4 L, Young % (Auto) 8.0, Eos % (Auto) 0.1, [...] Clarity Cloudy, Urine pH 6.0, Ur Specific [place] 1.025, Urine Protein 30 H, Urine Glucose [...] the colon consistent with constipation. Reading Location: [facility] Abdomen/Pelvis CT 11/25/24 11:32 IMPRESSION: 1. Fecal impaction with apparent wall thickening of the distal colon and rectumsuggesting proctitisand colitis. Clinical correlation is recommended. 2. Hepatomegaly with fatty infiltration. Reading Location: [facility] Charges/Coding Visit Charges Inpatient E&M: 36088 Init Hosp L3 11/26/24 0747 Cosigner Signature (if applicable): CC: BROOKLYN BOAT HOIST OPERATOR-C Amy Solorzano~ Signed [facility]05-18-2025 Progress note [facility] Medical Records Department [address] [place] [address] Progress Note - Surgery 11/26/24 0741 MR#: [id number] Acct: [id number] Name: GHISLAINE GIVENS Rep #:[id number] : 1990 34 From: Annalise Welch MD PCP: BROOKLYN Warren, BOAT HOIST OPERATOR-C Statu s:ADM IN Location: [place] NR985-2 Subjective Subjective Patient states she did have [...] 79.5 H, Lymph % (Auto) 11.4 L, Young % (Auto) 8.0, Eos % (Auto) 0.1, [...] Clarity Cloudy, Urine pH 6.0, Ur Specific [place] 1.025, Urine Protein 30 H, Urine Glucose [...] (Auto) 73.4 H, Lymph % (Auto) 19.4, Young % (Auto) 6.2, Eos % (Auto) 0.2, [...] the colon consistent with constipation. Reading Location: [facility] Abdomen/Pelvis CT 11/25/24 11:32 IMPRESSION: 1. Fecal impaction with apparent wall thickening of the distal colon and rectumsuggesting proctitisand colitis. Clinical correlation is recommended. 2. Hepatomegaly with fatty infiltration. Reading Location: [facility] Physical Exam Const oriented x3 and no [...] improved from 27-17. Annalise Welch M.D. Pager: [phone] [facility] [address] [place] [address], [facility], [address] [place] [address] Office: [phone] Charges/Coding Multi Select Codes Visit Charges Visit Charges: 12618 Subs Hosp L2 11/26/24 0751 Cosigner Signature (if applicable): CC: ~ Signed [facility]05-17-2025 Discharge summary Author Drew Hinson [facility] Note Date/Time November 25, 2024 1:45p m [facility] Medical Records Department [address] [place], [place] [id number] Emergency Department Summary 11/25/24 MR#: [id number] Acct: [id number] Name: GHISLAINE GIVENS Rep #:[id number] : 1990 34 From: Drew Hinson MD PCP: Amy Solorzano [facility], BOAT HOIST OPERATOR-C Statu s:REG ER Location: ED HPI [...] this diagnosis. No exacerbating or alleviating factors. [facility] Medical History Wears glasses History of MRSA [...] 79.5 H Lymph % (Auto) 11.4 L Young % (Auto) 8.0 Eos % (Auto) 0.1 [...] Clarity Cloudy Urine pH 6.0 Ur Specific [place] 1.025 Urine Protein 30 H Urine Glucose [...] the colon consistent with constipation. Reading Location: [facility] Abdomen/Pelvis CT 11/25/24 11:32 IMPRESSION: 1. Fecal impaction with apparent wall thickening of the distal colon and rectumsuggesting proctitis and colitis. Clinical correlation is recommended. 2. Hepatomegaly with fatty infiltration. Reading Location: [facility] Management Discussion w/another healthcare provider: Hospitalist (Dr. Rao) and Public Safety Dispatcher(Dr. eWlch) Discharge Plan Dx/Rx/DC Orders Clinical Impression: Fecal impaction, Acute proctitis, Colitis Disposition Disposition: Acute Care Hospital [facility] What to do if you have Problems For any increased pain, shortness of breath, bleeding, nausea or vomiting, chestpain, or any unexpected problems, contact your Primary Care Provider. Call [facility] ([phone]) or report to the closest Emergency Room. Call 911 if necessary. 11/25/24 1345 <Electronically signed by Drew Hinson MD> Cosigner Signature (if applicable): CC: [facility] BOAT HOIST OPERATORKaykay Solorzano ~ Signed [facility] Work Phone: 1(729) 372-249505-17-2025 Evaluation note* Diagnosis Onset Date Resolution Status Admit Date Abdominal pain acute November 25, 2024 1:38pm Acute proctitis acute November 25, 2024 1:38pm Colitis acute November 25, 2024 1:38pm Diabetes acute November 25, 2024 1:38pm Fecal impaction acute November 25, 2024 1:38pm Nausea & vomiting acute November 1:38pm [facility] Work Phone: 1(563) 250-459805-17-2025 Evaluation note* Diagnosis Onset Date Resolution Status [...] December 7:52am Constipation noneactive December 13 7:52am [facility] Work Phone: 1([phone]) 750-310805-17-2025 Evaluation note* Diagnosis Onset Date Resolution Status [...] 2024 12:28pm Diabetic ketoacidosis acute Dec 12:28pm [facility] Work Phone: 1(169) 487-589205-17-2025 Evaluation note* Diagnosis Onset Date Resolution Status [...] December 31, 2024 10:59pm Diabetic ketoacidosis acute Addison e 2024 10:59pm Medical non-compliance acute Ju 2024 10:59pm Obesity (BMI 30-39.9) acute Dec 10:59pm Type 2 diabetes mellitus wit h peripheral neuropathy acute December 31, 2024 10:59pm [facility] Work Phone: 1(239) 886-248205-17-2025 Evaluation note* Diagnosis Onset Date Resolution Status [...] peripheral neuropathy acute December 31, 2024 10:59pm [facility] Work Phone: 1([phone]) [phone] Evaluation note* Diagnosis Onset Date Resolution Status [...] December 13 7:52am NAI (acute kidney injury) resolved December 30, 2024 12:28pm Diabetic ketoacidosis inactive Dec 12:28pm Borderline personality disorder inactive December 31, 2024 10:59pm Cannabis abuse inactive December 31, 2024 10:59pm Cyclic vomiting syndrome inactive December 31, 2024 10:59pm Depression with anxiety inactive J une 2024 10:59pm Diabetic ketoacidosis inactive Dec 10:59pm Medical non-compliance inactive Ju ne 2024 10:59pm Obesity (BMI 30-39.9) inactive Addison e 2024 10:59pm Type 2 diabetes mellitus wit h peripheral neuropathy inactive December 31, 2024 10:59pm [facility] Work Phone: 1(363) 397-363505-17-2025 Discharge summary Author Drew Hinson [facility] Note Date/Time November 25, 2024 1:45p m [facility] Medical Records Department [address] [place] [address] Emergency Department Summary 11/25/24 MR#: [id number] Acct: [id number] Name: GHISLAINE GIVENS Rep #:[id number] : 1990 34 From: Drew Hinson MD PCP: Amy Solorzano Sara, BOAT HOIST OPERATOR-C Statu s:REG ER Location: ED HPI [...] this diagnosis. No exacerbating or alleviating factors. [facility] Medical History Wears glasses History of MRSA [...] 79.5 H Lymph % (Auto) 11.4 L Young % (Auto) 8.0 Eos % (Auto) 0.1 [...] Clarity Cloudy Urine pH 6.0 Ur Specific [place] 1.025 Urine Protein 30 H Urine Glucose [...] the colon consistent with constipation. Reading Location: [facility] Abdomen/Pelvis CT 11/25/24 11:32 IMPRESSION: 1. Fecal impaction with apparent wall thickening of the distal colon and rectumsuggesting proctitis and colitis. Clinical correlation is recommended. 2. Hepatomegaly with fatty infiltration. Reading Location: [facility] Management Discussion w/another healthcare provider: Hospitalist (Dr. Rao) and Public Safety Dispatcher(Dr. Welch) Discharge Plan Dx/Rx/DC Orders Clinical Impression: Fecal impaction, Acute proctitis, Colitis Disposition Disposition: Acute Care Hospital [facility] What to do if you have Problems For any increased pain, shortness of breath, bleeding, nausea or vomiting, chestpain, or any unexpected problems, contact your Primary Care Provider. Call [facility] ([phone]) or report to the closest Emergency Room. Call 911 if necessary. 11/25/24 1345 <Electronically signed by Drew Hinson MD> Cosigner Signature (if applicable): CC: BROOKLYN BOAT HOIST OPERATOR-C Amy Solorzano ~ Signed [facility] Work Phone: 1(146) 461-431805-17-2025 Discharge summary [facility] Medical Records Department [address] [place] [address] Emergency Department Summary 11/25/24 MR#: [id number] Acct: [id number] Name: GHISLAINE GIVENS Rep #:[id number] : 1990 34 From: Drew Hinson MD PCP: BROOKLYN Warren, BOAT HOIST OPERATOR-C Statu s:REG ER Location: ED HPI [...] confirm this diagnosis. Noexacerbating or alleviating factors. [facility] Medical History Wears glasses History of MRSA [...] 79.5 H Lymph % (Auto) 11.4 L Young % (Auto) 8.0 Eos % (Auto) 0.1 [...] Clarity Cloudy Urine pH 6.0 Ur Specific [place] 1.025 Urine Protein 30 H Urine Glucose [...] the colon consistent with constipation. Reading Location: [facility] Abdomen/Pelvis CT 11/25/24 11:32 IMPRESSION: 1. Fecal impaction with apparent wall thickening of the distal colon and rectumsuggesting proctitisand colitis. Clinical correlation is recommended. 2. Hepatomegaly with fatty infiltration. Reading Location: [facility] Management Discussion w/another healthcare provider: Hospitalist (Dr. Rao) and Public Safety Dispatcher(Dr. Welch) Discharge Plan Dx/Rx/DC Orders Clinical Impression: Fecal impaction, Acute proctitis, Colitis Disposition Disposition: Acute Care Hospital [facility] What to do if you have Problems For any increased pain, shortness of breath, bleeding, nausea or vomiting, chestpain, or any unexpected problems, contact your Primary Care Provider. Call [facility] ([phone]) or report tothe closest Emergency Room. Call 911 if necessary. 11/25/24 1345 Cosigner Signature (if applicable): CC: BROOKLYN BOAT HOIST OPERATOR-C Amy Solorzano ~ Signed [facility]05-17-2025 Radiology Diagnostic study note [facility] [address] [place], [place] [address] Abdomen/Pelvis W IV Cont ONLY MR#: [id number] Acct: [id number] Name: GHISLAINE GIVENS Rep #: [id number] : 1990 F 34 From: Alicja Barfield MD PCP: BROOKLYN Warren, BOAT HOIST OPERATOR-C Status: REG ER Study:Abdomen/Pelvis W IV Cont ONLY Date of E xam: 11/25/24 Exam# [id number] Ordering Dr: Drew Hinson MD EXAM: CT [...] 2. Hepatomegaly with fatty infiltration. Reading Location: [facility] CC: [facility] BOAT HOIST OPERATOR-C Amy Solorzano; Dr. Drew Hinson MD ~ [employer] Worker: Signed [facility]05-17-2025 Radiology Diagnostic study note [facility] [address] [place] [address] Acute Abdomen Inc Chest MR#: [id number] Acct: [id number] Name: GHISLAINE GIVENS Rep #: [id number] : 1990 F 34 From: Alicja Barfield MD PCP: Amy Solorzano [facility], BOAT HOIST OPERATOR-C Status: REG ER Study:Acute Abdomen Inc Chest Date of Exam: 11/25/24 Exam# [id number] Ordering Dr: Drew Hinson MD EXAM: XR [...] the colon consistent with constipation. Reading Location: [facility] CC: [facility] [facility] BOAT HOIST OPERATOR-C Amy Solorzano; Dr. Drew Hinson MD ~ Automotive Tire Worker: Signed [facility]12-23-2024 NoteHNO ID: [id number] Author: IRAIS HANNA PA Service: ? Author Type: Physician Business Line Controller Type: Progress Notes Filed: 07/03/2024 13:13 Note Text: This note was created using Sportfortriter. Subjective Ghislaine Givens is a 34 year [...] treatment plan were d (more content not included)...[facility]12-23-2024 History of Present illness Narrative* Irais Hanna PA - 07/03/2024 1:11 PM EST This note was created using BusyFlow. Subjective Ghislaine Givens is a 34 year [...] evaluation. MIGUEL A Goldman [facility]12-[facility]24 History of Present illness Narrative* Luis [...] PATIENT PRESENTS WITH AN IMPLANTABLE OR ATTACHED CAGE SHIFT MANAGER: No RADIOLOGY DEPARTMENT: General X-ray: Exam(s) Completed: Chest X-Ray PERIPHERAL IV DATA: Not applicable SIGNED BY: RT Los(Reji) July 03, 2024 12:58 PM documented in this encounterPeoples Hospital12-23-2024 NoteHNO ID: [id number] Author: LUIS MAYES RT (R) Service: Radiology Author Type: Technologist Type: Progress [...] PATIENT PRESENTS WITH AN IMPLANTABLE OR ATTACHED CAGE SHIFT MANAGER: No RADIOLOGY DEPARTMENT: General X-ray: Exam(s) Completed: Chest X-Ray PERIPHERAL IV DATA: Not applicable SIGNED BY: RT Los(Reji) July 03, 2024 12:58 [facility]12-16-2024 NoteHNO ID: [id number] Author: FRANTZ AREVALO PA-C Service: ? Author Type: Physician Business Line Controller Type: Progress Notes Filed: 06/26/2024 11:03 Note Text: This note was created using Sportfortriter. Subjective Ghislaine Givens is a 34 year [...] - ICD9: 493.90, ICD10: J45.20 MIGUEL A [facility]12-16-2024 History of Present illness Narrative* Frantz Arevalo PA-C - 06/26/2024 10:55 AM EST This note was created using BusyFlow. Subjective Ghislaine Givens is a 34 year [...] J45.20 Frantz Arevalo PA-C documented in this encounterPeoples Hospital01-12-2024 Procedure [facility]12-21-2023 History of Present illness Narrative* Andres Galaviz APRN.MEAT BONER AND SLICER - 07/01/2023 10:42 AM EST Images from [...] ophthalmology. Appointment scheduled today 115. Andres Galaviz APRN.MEAT BONER AND SLICER documented in this encounterPeoples Hospital12-16-2023 Discharge summary Author Alex [facility] June 26, 2023 6:14pm Note Date/Time June 26, 2023 12:09pm [facility] Medical Records Department [address] [place] [address] Emergency Department Summary 06/26/23 MR#: [id number] Acct: [id number] Name: GHISLAINE GIVENS Rep #:[id number] : 1990 33 From: Taiwo Chen MD [...] pharmacy. She denies any other new symptoms. [facility] Medical History Anxiety Asthma Constipation Depression Diabetes [...] dry heaving. After the Thorazine infusion was completedlaxmi was reevaluated, she is sleeping and difficult [...] % (Auto) 63.6 Lymph % (Auto) 30.6 Young % (Auto) 4.3 Eos % (Auto) 0.2 [...] your Primary Care Provider. Call [facility] ([phone]) or report to the closest Emergency Room. Call 911 if necessary. 06/26/23 1641 <Electronically signed by Taiwo Chen MD> Cosigner Signature (if applicable): CC: Dr. Sophy Gibbons ~ Signed ADDENDUM by Dr. Alex Christiansen DO on 06/26/23 at 7810 Patient signed out to me for follow-up. [...] applicable): cc: Dr. Sophy Gibbons ~* Signed [facility] Work Phone: 1(628) 402-144010-29-2023 Progress note Author Rickey Gifford [facility] May 09, 2023 11:46am Note Date/Time May 09, 2023 7 :55am [facility] Medical Records Department [address] [place] [address] Progress Note - Hospitalist 05/09/23751 MR#: [id number] Acct: [id number] Name: GHISLAINE GIVENS Rep #:[id number] : 1990 33 From: Rickey Gifford DO PCP: Care Physician,No Primary Status :ADM IN [place] [facility] [place] Reason for Visit Reason for Visit: Diagnoses [...] does have constipation. Also reviewing records through [employer]. Charges/Coding Visit Charges Inpatient E&M: 54319 Subs Hosp L3 05/09/23 1146 <Electronically signed by Rickey Gifford DO> Cosigner Signature (if applicable): CC: ~ Signed [facility] Work Phone: 1(262) 290-826810-29-2023 Progress note Author Abdirizak Forrest [facility] May 09, 2023 10:47am Note Date/Time May 09, 2023 1 0:19am [facility] Medical Records Department [address] [facility] [place] [address] Progress Note - Surgery 05/09/23 1018 MR#: [id number] Acct: [id number] Name: GHISLAINE GIVENS Rep #:[id number] : 1990 33 From: Abdirizak Gupta PM PCP: Care Physician,No Primary Status :ADM IN Location: MS3 MT439-8 Subjective Subjective Ms. Givens is a 33-year-old [...] Cosigner Signature (if applicable): CC: ~ Signed [facility] Work Phone: 1(888) 185-204510-28-2023 Progress note Author Rickey Gifford [facility] May 08, 2023 10:48am Note Date/Time May 08, 2023 7 :51am [facility] Medical Records Department [address] [place] [address] Progress Note - Hospitalist 05/08/23 0749 MR#: [id number] Acct: [id number] Name: GHISLAINE GIVENS Rep #:[id number] : 1990 33 From: Rickey Gifford DO PCP: Care Physician,No Primary Status :ADM IN Location: [place] [address]-1 Reason for Visit Reason for Visit: Diagnoses [...] with enoxaparin. Charges/Coding Visit Charges Inpatient E&M: 04022 Subs Hosp L2 05/08/23 1048 <Electronically signed by Rickey Gifford DO> Cosigner Signature (if applicable): CC: ~ Signed [facility] Work Phone: 1(567) 290-718710-28-2023 Progress note Author Abdirizak Forrest [facility] May 08, 2023 10:31am Note Date/Time May 08, 2023 9 :18am [facility] Medical Records Department [address] [place] [address] Progress Note - Surgery 05/08/23 0917 MR#: [id number] Acct: [id number] Name: GHISLAINE GIVENS Rep #:[id number] : 1990 33 From: Abdirizak Gupta PM PCP: Care Physician,No Primary Status :ADM IN Location: [place] [address]-1 Subjective Subjective Mrs. Givens is a 33-year-old [...] Cosigner Signature (if applicable): CC: ~ Signed [facility] Work Phone: 1(103) 715-803810-27-2023 Procedure [facility] 05-07-2023 Progress note Author Rickey Gifford [facility] May 07, 2023 12:40pm Note Date/Time May 07, 2023 1 2:36pm [facility] Medical Records Department [address] [place] [address] Progress Note - Hospitalist 05/07/23 1229 MR#: [id number] Acct: [id number] Name: GHISLAINE GIVENS Rep #:[id number] : 1990 33 From: Rickey Gifford DO PCP: Care Physician,No Primary Status :ADM IN Location: MS3 CT613-9 Reason for Visit Reason for Visit: Diagnoses [...] her symptoms. Charges/Coding Visit Charges Inpatient E&M: 76714 Subs Hosp L2 05/07/23 1240 <Electronically signed by Rickey Gifford DO> Cosigner Signature (if applicable): CC: ~ Signed [facility] Work Phone: 1(802) 154-488510-26-2023 Consult note Author Rickey Gifford [facility] May 06, 2023 4:46pm Note Date/Time May 04, 2023 8 :30pm [facility] Medical Records Department [address] [place] [address] Pharmacokinetic/Renal -Consult 05/04/232026 MR#: [id number] Acct: [id number] Name: GHISLAINE GIVENS Rep #:[id number] : 1990 33 From: Otto enamorado PCP: Care Physician,No Primary Status :ADM IN Location: [place] [address] Consult Antibiotic Management Pharmacy has been consulted [...] will continue with 1000mg IV q8h per [facility] dosing protocol. Will check a trough before [...] Date Rickey Gifford DO CC: ~ Signed [facility] Work Phone: [phone]) 392-744810-26-2023 Consult note Author Rickey Gifford [facility] May 06, 2023 4:46pm Note Date/Time May 05, 2023 2 :05pm [facility] Medical Records Department [address] [place] [address] Pharmacokinetic/Renal -Consult 05/05/23 1404 MR#: [id number] Acct: [id number] Name: GHISLAINE GIVENS Rep #:[id number] : 1990 33 From: Gage Trejo PCP: Care Physician,No Primary Status :ADM IN Y Location: [place] [address] Consult Antibiotic Management Pharmacy has been consulted to manage selected antiobiotic: Vancomycin Type of Intervention Type of Consult: Follow-up Suspected Infection Suspected Infection: Skin/Soft tissue Prior Doses of Antibiotics Prior Doses of Antibiotics Received/Current Regimen: Vancomycin 1000 mg given 05/04 @ 2242, and 05/05 @ 7763 Labs Labs: Sodium 132 mmol/L (136-145) L [...] Date Rickey Gifford DO CC: ~ Signed [facility] Work Phone: 1(633) 364-748710-26-2023 Progress note Author Rickey Gifford [facility] May 06, 2023 2:03pm Note Date/Time May 06, 2023 8 :47am [facility] Medical Records Department [address] [place] [address] Progress Note - Hospitalist 05/06/23 0844 MR#: [id number] Acct: [id number] Name: GHISLAINE GIVENSREBA Rep #:[id number] : 1990 33 From: Rickey Gifford DO PCP: Care Physician,No Primary Status :ADM IN Location: [address] Reason for Visit Reason for Visit: [...] (Auto) 40.5 L, Lymph % (Auto) 49.6H, Young % (Auto) 8.4, Eos % (Auto) 0.3, [...] with enoxaparin. Charges/Coding Visit Charges Inpatient E&M: 30698 Subs Hosp L1 05/06/23 1403 <Electronically signed by Rickey Gifford DO> Cosigner Signature (if applicable): CC: ~ Signed [facility] Work Phone: 1(647) 253-665910-26-2023 Progress note Author Abdirizak Forrest [facility] May 06, 2023 8:10am Note Date/Time May 06, 2023 8 :10am [facility] Medical Records Department [address] [place] [address] Progress Note - Surgery 05/06/23 08 MR#: [id number] Acct: [id number] Name: GHISLAINE GIVENS Rep #:[id number] : 1990 33 From: Abdirizak Gupta PM PCP: Care Physician,No Primary Status :ADM IN Location: MS3 UF992-2 Subjective Subjective Ms. Givens is a 33-year-old [...] (Auto) 40.5 L, Lymph % (Auto) 49.6H, Young % (Auto) 8.4, Eos % (Auto) 0.3, [...] 11:07 EDT Reading Location ID and State: [facility] / [place] , Service support , Physical Exam Narrative [...] optimize healing. 05/06/23 0810 <Electronically signed by Abidrizak Forrest DPM> Cosigner Signature (if applicable): CC: ~ Signed [facility] Work Phone: 1(979) 771-381210-25-2023 Progress note Author Rickey Gifford [facility] May 05, 2023 1:09pm Note Date/Time May 05, 2023 7 :49am [facility] Medical Records Department [address] [place] [address] Progress Note - Hospitalist 05/05/23 0745 MR#: [id number] Acct: [id number] Name: GIVENSGHISLAINE BARBOURREBA Rep #:[id number] : 1990 33 From: iRckey Gifford DO PCP: Care Physician,No Primary Status :ADM IN Location: [address] Reason for Visit Reason for Visit: [...] 73.2 H, Lymph % (Auto) 14.9 L, Young % (Auto) 10.2 H, Eos % (Auto) [...] % (Auto) 56.9, Lymph % (Auto) 30.9, Young % (Auto) 11.1 H, Eos % (Auto) [...] 11:59 EDT Reading Location ID and State: [facility] / [place] , Service support , Physical Exam Const [...] with enoxaparin. Charges/Coding Visit Charges Inpatient E&M: 09452 Subs Hosp L2 05/05/23 1303 <Electronically signed by Rickey Gifford DO> Cosigner Signature (if applicable): CC: ~ Signed [facility] Work Phone: 1(878) 135-459510-25-2023 Progress note Author Abdirizak Forrest [facility] May 05, 2023 10:17am Note Date/Time May 05, 2023 8 :29am [facility] Medical Records Department [address] [place] [address] Progress Note - Surgery 05/05/23 0829 MR#: [id number] Acct: [id number] Name: GHISLAINE GIVENS Rep #:[id number] : 1990 33 From: Abdirizak Gupta PM PCP: Care Physician,No Primary Status :ADM IN Location: MS3 MQ773-2 Subjective Subjective Ms. Givens is a 33-year-old [...] 73.2 H, Lymph % (Auto) 14.9 L, Young % (Auto) 10.2 H, Eos % (Auto) [...] % (Auto) 56.9, Lymph % (Auto) 30.9, Young % (Auto) 11.1 H, Eos % (Auto) [...] 11:59 EDT Reading Location ID and State: [facility] / [place] , Service support , Physical Exam Narrative [...] Cosigner Signature (if applicable): CC: ~ Signed [facility] Work Phone: 1(164) 136-419510-24-2023 Consult note Author Abdirizak Forrest [facility] May 04, 2023 5:02pm Note Date/Time May 04, 2023 4 :48pm [facility] Medical Records Department [address] [place] [address] [place] [address] Consultation 05/04/23 1642 MR#: [id number] Acct: [id number] Name: GHISLAINE GIVENS Rep #:[id number] : 1990 33 From: Abdirizak Gupta PM PCP: Care Physician,No Primary Status :[facility] Location: [facility] A-1 Assessment & Plan Assessment/Plan (1) [...] is a 33 F who presented to [facility] emergency department for concerns for worsening [...] No other pedal complaints at this time. [facility] Medical History Anxiety Asthma Constipation Depression [...] 73.2 H, Lymph % (Auto) 14.9 L, Young % (Auto) 10.2 H, Eos % (Auto) [...] applicable): CC: No Primary Care Physician~ Signed [facility] Work Phone: 1(165) 621-779410-24-2023 [facility] Discharge summary Author Javy Doss [facility] May 04, 2023 3:49pm Note Date/Time May 04, 2023 1 0:56am [facility] Medical Records Department [address] [place] [address] Emergency Department Summary 05/04/23 MR#: [id number] Acct: [id number] Name: GHISLAINE GIVENS Rep #:[id number] : 1990 33 From: Javy Doss DO PCP: Care Physician,No Primary Status :[facility] Location: [facility] AC-TB A-1 HPI History of Present Illness Chief [...] denies any fever. Patient is a diabetic. [facility] Medical History (Updated 05/04/23 @ 13:11 by [...] 73.2 H Lymph % (Auto) 14.9 L Young % (Auto) 10.2 H Eos % (Auto) [...] Diabetic foot infection, Diabetes, Leukocytosis Disposition Disposition: [facility] Care [facility] Discharge Date/Time: 05/04/23 15:25 What to do if you have Problems For any increased pain, shortness of breath, bleeding, nausea or vomiting, chestpain, or any unexpected problems, contact your Primary Care Provider. Call [facility] ([phone]) or report to the closest Emergency Room. Call 911 if necessary. 05/04/23 1549 <Electronically signed by Javy Doss DO> Cosigner Signature (if applicable): CC: No Primary Care Physician ~ Signed [facility] Work Phone: 1(738) 611-566310-24-2023 History and physical note Author Rickey Gifford [facility] May 04, 2023 1:14pm Note Date/Time May 04, 2023 1 :13pm [facility] Medical Records Department [address] [place] [address] H&P Exam - Hospitalist 05/04/23 1309 MR#: [id number] Acct: [id number] Name: GHISLAINE GIVENS Rep #:[id number] : 1990 33 From: Rickey Gifford DO [...] Patient received vancomycin in the emergency room. [facility] Medical History (Updated 05/04/23 @ 13:11 [...] 73.2 H, Lymph % (Auto) 14.9 L, Young % (Auto) 10.2 H, Eos % (Auto) [...] 11:59 EDT Reading Location ID and State: [facility] / [place] , Service support , Assessment & Plan [...] with enoxaparin. Charges/Coding Visit Charges Inpatient E&M: 74414 Init Hosp L2 05/04/23 1319 <Electronically signed by Rickey Gifford DO> Cosigner Signature (if applicable): CC: Dr. Rickey Gifford DO; No Primary Care Physician~ Signed [facility] Work Phone: 1(415) 361-507710-24-2023 History and physical note Author Rickey Gifford [facility] May 04, 2023 1:14pm Note Date/Time May 04, 2023 1 :13pm [facility] Medical Records Department [address] [place] [address] H&P Exam - Hospitalist 05/04/23 1309 MR#: [id number] Acct: [id number] Name: GHISLAINE GIVENS Rep #:[id number] : 1990 33 From: Rickey Gifford DO [...] Patient received vancomycin in the emergency room. [facility] Medical History (Updated 05/04/23 @ 13:11 [...] 73.2 H, Lymph % (Auto) 14.9 L, Young % (Auto) 10.2 H, Eos % (Auto) [...] 11:59 EDT Reading Location ID and State: [facility] / [place] , Service support , Assessment & Plan [...] with enoxaparin. Charges/Coding Visit Charges Inpatient E&M: 67371 Init Hosp L2 05/04/23 1314 <Electronically signed by Rickey Gifford DO> Cosigner Signature (if applicable): CC: Dr. Rickey Gifford DO; No Primary Care Physician~ Signed [facility] Work Phone: 1(159) 895-387410-05-2023 History of Present illness Narrative* Abdirizak Peña APRN.CNP - 04/15/2023 11:13 AM EDT Patient triaged at [facility]. Here today with abd pain and sob, patients crying. Breathing easy but appears in pain. O2 100% on RA. Will refer to ER, declines squad, friend to drive to ER. documented in this encounterPeoples Hospital09-15-2023 History of Present illness Narrative* Claritza Sierra - 03/26/2023 2:21 PM EDT POPULATION HEALTH NAVIGATION OUTREACH Action/FYI [place] Support: Called pt to schedule an appt in Pain Management. Lvm for pt to call [phone] for scheduling. Patient Identified by Name and : NO Outreach Outcome/Action Unable to reach patient: Left message Did you use a PCP flex slot to schedule this appointment? No Reason for Outreach Care Gap or Scheduling/Wellness visits Payer: Payor: [place] / Plan: [employer] MEDICAID [place] / Product Type: Medicaid [...] 26, 2023 2:22 PM documented in this encounterPeoples Hospital09-01-2023 History of Present illness Narrative* Pilar Magdaleno APRN.CNP - 03/12/2023 12:12 PM EDT Please let patient know Dr. Sun is not in network. I have placed an order for pain management through the [facility]. documented in this encounterPeoples Hospital08-29-2023 Miscellaneous Notes* Telephone Encounter - Milagros Cloud RN - 03/09/2023 12:35 PM EDT Boyfriend calls and not listed on chart. Requested to speak to patient. Patient requesting pain management referral be faxed to Dr. Lr. Faxed per request to [phone]. Milagros Cloud RN documented in this encounterPeoples Hospital08-24-2023 NoteHNO ID: [id number] Author: Saida Lopez MD Service: ? Author Type: Physician Type: Progress Notes Filed: 03/11/2023 7:18 AM Note Text: Documentation Query Based on your medical judgment of the clinical indicators outlined below, please clarify the condition: (Please type X next to your response and sign) Clinical indicators: 03.03.23 Gastroenterology note MEAT BONER AND SLICER: Plan: Nausea with vomiting Generalized abdominal pain [...] X Other, please specify___due to psychiatric problems [facility]-2023 NoteHNO ID: [id number] Author: Saida Lopez MD Service: ? Author [...] by psych and GI. Discussed with social work professor/bilingual case manager. OK to discharge the patient. Rest of management as outpatient. I personally spent more than 30 minutes for discharge of this patient. Discussed with unit PA/MEAT BONER AND SLICER about care plans. Recommended to see her [...] MD DATE: March 04, 2023 TIME: 11:57 [facility]08-24-2023 NoteHNO ID: [id number] Author: Cary Pino RN Service: Care Management [...] No Caregiver needed Transportation Arrangements Transportation Arrangements: [employer] and Phone #:: [place] [employer] [phone] Date of Trip: 03/04/23 Time of Trip: 1730 Type of Service: Wheelchair Is Patient Medicaid Pending?: No Was transportation financial coverage discussed with family?: Patient [employer] Location: [facility] Destination: Home Financial Care Management Responsibility: [...] ED to Hosp-Admission (Current) from 03/01/2023 in [facility] Observation Unit Medical Follow-Up Appointment Specialty Psychaitry Behavior Health/Jose L Mccarthy Provider Name [facility] Address [address] [facility] [address] [facility], [place] [address] Additional Instructions Please call for appointment to establish physician for mental health SIGNATURE: Cary Pino RN PATIENT NAME: Ghislaine Givens DATE: March 04, 2023 TIME: 11:26 AM CONTACT #: [id number] NoteHNO ID: [id number] Author: Cary Pino RN Service: Care Management [...] 04, 2023 TIME: 11:25 AM PAGER/CONTACT #: [phone] Note HNO ID: [id number] Author: Saida Lopez MD Service: ? Author [...] to discharge in AM. Discussed with social work professor/bilingual case manager. Advance diet. Physical Examination: GENERAL: [...] MD DATE: March 03, 2023 TIME: 3:15 [facility]08-23-2023 NoteHNO ID: [id number] Author: Frida Scott APRN.MEAT B[employer]ER [employer] SLICER Service: Gastroenterology Author Type: Nurse Practitioner Type: Plan of Care Filed: 03/03/2023 11:30 AM Note Text: DEPARTMENT OF GASTROENTEROLOGY AND HEPATOLOGY [facility] INPATIENT VISIT DATE AND TIME 03/03/23 [...] mild gastritis and an esophageal ulcer at [facility]. Patient presented from outpatient GI clinic [...] and re-consult as needed. SIGNATURE: Frida Scott APRN.MEAT BONER AND SLICER PAGER/CONTACT #: For concerns during days 7a-5p, contact BOAT HOIST OPERATOR directly [phone] Please page [phone] for covering attending concernsChristian Hospital08-22-2023 Telephone encounter Note* Telephone Encounter - Almita Kelly PA-C - 03/02/2023 2:30 PM EDT Hi, The patient needs outpatient GES for persistent nausea and vomiting once optimized. Orders placed. The patient is a Dr. Doran patient and should follow- up with him. Thanks! Almita Kelly PA-C Gastroenterology and Hepatology [facility]08-22-2023 Miscellaneous Notes* Telephone Encounter - Almita Kelly PA-C - 03/02/2023 2:30 PM EDT Hi, The patient needs outpatient GES for persistent nausea and vomiting once optimized. Orders placed. The patient is a Dr. Doran patient and should follow- up with him. Thanks! Almita Kelly PA-C Gastroenterology and Hepatology documented in this encounterPeoples Hospital08-22-2023 History of Present illness Narrative* Claritza Sierra - 03/02/2023 1:27 PM EDT POPULATION HEALTH NAVIGATION OUTREACH Action/[place] Support: Called pt to schedule an appt [...] [place] / Plan: [place] [employer] [facility] / Product Type: Medicaid / Care [...] 02, 2023 1:27 PM documented in this encounterPeoples Hospital08-22-2023 NoteHNO ID: [id number] Author: Ghislaine Mancilla RN Service: ? Author Type: Registered Nurse Type: Progress Notes Filed: 03/02/2023 5:47 PM Note Text: IV access lost. X2 RN attempted to get new access with no success. AMET and NOM notified and states will come and attempt soon. BOAT HOIST OPERATOR notified via secure chat. Patient also complains of pain for second time this shift and BOAT HOIST OPERATOR notified for second time as well. States tylenol did not work when given during morning medication rounds. Patient now walking halls as she states movement helps with pain at times. Informed BOAT HOIST OPERATOR of patient calus/wound to right foot [...] aware and MOVIPREP will be moved to awake overnight monitor to attempt at a later time. As patient states she cannot tolerate drinking. 1730 Patient ordered oral contrast dye with CT. flight data technician states patient refusing to drink oral contrast. GI made aware via secure chat but no changes to orders made at this time. Patient will be sent to room with contrast dye per flight data technician. If pt drinks contrast and can keep in her body CT asked to be called and patient will then have the scan.[facility] 03-02-2023 NoteHNO ID: [id number] Author: Cary Pino RN Service: Care Management [...] Relation: Grandparent Admission Status: Inpatient Insurance Provider: [employer] MEDICAID OF [place] Discharge Planning requested by: Per Department Practice Potential Transition Plans Home Advance Directives Current Advance Directive: None Weatherseal Technician Attempted to Assist with AD Completion: Yes [...] General wellness, Be able to go home Loami of Choice Explained: Loami of Choice Given: No Reason Not Given: [...] during this admission, please contact Case Management. [phone]. Uber transport will be needed once stable for discharge. HX Depression Bipolar disorder DM SIGNATURE: Cary Pino RN PATIENT NAME: Ghislaine Givens DATE: March 02, 2023 TIME: 8:46 AM CONTACT #: [phone] History of Present illness Narrative* Dewayne Doran MD - 03/01/2023 10:40 AM EDT NAME: Ghislaine Givens AGE: [age] year old Referred by: Pilar Magdaleno [address] [phone] Referred for: an opinion regarding nausea and [...] Past Histories independently gathered by the clinical clinical support associate and the remaining scribed note [...] PHYSICIAN Dewayne Doran MD [facility] History of Present illness Narrative* Pilar Magdaleno, ROSA.MEAT BONER AND SLICER - 02/23/2023 10:11 AM EDT Chief Complaint Patient presents with: [facility] F/U [facility] Ghislaine Givens is a 33 year [...] - CONSULT TO PAIN MGT Pilar Magdaleno APRN.MEAT BONER AND SLICER documented [facility]23 Note. MICRO - Microbiology PROCEDURE: Blood [...] Locations *1: This test was performed at: [facility], [address] [place] [address], [facility]- , [facility] ([place])02-16-2023 Note. MICRO - Microbiology PROCEDURE: Blood [...] Locations *1: This test was performed at: [facility], [facility] [address] [place] [address], [address]- , [facility] ([place])02-11-2023 Hospital Discharge instructions Patient Education 02/11/2023 [...] as coffee and soda. Take and apply zfee-phd-rddhlap and prescription medicines only as told by [...] 10/06/2017 Document Revised: 11/04/2018 Document Reviewed: 10/06/2017 [employer] Patient Education 2020 [employer]. 02/11/2023 17:15:45 Nausea, Adult, Sczz-tt-Epbk Nausea, Adult Nausea is feeling sick to [...] fruit juice). ?Low-calorie sports drinks. Eat bland, oloe-ia-loqbgg foods in small amounts as you are able, such as: ?Bananas. ?Applesauce. ?Rice. ?Low-fat (lean) meats. ?Ainsworth. ?Crackers. Avoid drinking fluids that have a lot of sugar or caffeine in them. This includes energy drinks, sports drinks, and soda. Avoid alcohol. Avoid spicy or fatty foods. General instructions Take gfrl-xmy-uxbeeng and prescription medicines only as told by your doctor. Rest at home while you get better. Drink enough fluid to keep your pee (urine) pale yellow. Take slow and deep breaths when you feel sick to your stomach. Avoid food or things that have strong smells. Wash your hands often with soap and water. If you cannot use soap and water, use hand editorial writer. Make sure that all people in your [...] drink what your doctor tells you. Take lypf-tau-firtidp and prescription medicines only as told by [...] 06/16/2012 Document Revised: 12/06/2018 Document Reviewed: 12/06/2018 [employer] Patient Education 2020 [employer]. Follow Up Care 02/10/2023 23:24:03 With:AMY SOLORZANOMEAT BONER AND SLICER Address: [address] [place] [phone] When:3-5 days Comments:Please call to schedule your post-hospital follow-up appointment. [facility] 08-03-2023 Note Date of Service 02/11/2023 Chief Complaint C/o generalized ABD pain, N/V, multiple recent falls. States she has not been checking her blood sugar either. States she is supposed to be using insulin for DM. History of Present Illness 33-year-old female with past medical history significant for HTN, type 2 diabetes mellitus, neuropathy, depression/anxiety, asthma, cannabis use. Patient presented to [facility] emergency department on 02/10/2023 with [...] and pelvis with contrast. 01/07/2023 and 01/09/2023 [facility] ED visit 01/10/2023 [facility] ED visit. CT abdomen and pelvis with contrast that showed left hydrosalpinx, mildly dilated CBD with adjacent more than expected khurram hepatis adenopathy which may be reactive. She was treated with IV fluids and antiemetics and discharged. 01/12/2023 and 01/13/2023 [facility] ED visit treated with IV fluids and antiemetics, haldol and discharged. 01/14/2023 [facility] emergency department visit. IV fluids and antiemetics given. Admitted for hypokalemia. CT abdomen and pelvis with bilateral small ovarian cysts. 01/17/2023 [facility] ED visit. CT abdomen and pelvis with contrast showed underfilling versus mucosal thickening at rectosigmoid colon. Otherwise unremarkable. 01/24 [facility] emergency department visit. Discharged with a prescription for Keflex and Reglan. No imaging done. 01/25 [facility] emergency department treated with IV fluids and antiemetics. 727: She was seen in urgent care and advised to go to the emergency department. [facility] ED visit treated with IV fluids and antiemetics and discharged. She was seen at [facility] on 02/08. She had CT of abdomen [...] by MARTI WEBB on 02/11/2023 07:14 PM [facility]08-03-2023 Note Discharge Instructions Thank you for allowing [facility] to assist you with your healthcare needs. The following is importantdischarge information regarding your hospital visit. Your Care Team [facility] Your Diagnosis Abdominal pain [...] to schedule your post-hospital follow-up appointment. Where: [address] [place] [phone] The Following Activity and Diet Have Been [...] a day Duration: 7 Days Pickup at [facility] Unchanged promethazine (promethazine 25 mg rectal suppository) 1 suppository(ies) in the rectum Every 6 hours as needed for for nausea/vomiting Cannabis hyperemesis syndrome co-occurrent and due to cannabis abuse Pharmacy Information [facility]: [address] [place] [phone] What How Much When Why Comments Stop [...] as coffee and soda. Take and apply sfcf-msu-uduvbjs and prescription medicines only as told by [...] 10/06/2017 Document Revised: 11/04/2018 Document Reviewed: 10/06/2017 [employer] Patient Education 2020 [employer] Nausea, Adult Nausea is feeling sick [...] juice). ? Low-calorie sports drinks. Eat bland, panw-in-ptgyzq foods in small amounts as you are able, such as: ? Bananas. ? Applesauce. ? Rice. ? Low-fat (lean) meats. ? Ainsworth. ? Crackers. Avoid drinking fluids that have a lot of sugar or caffeine in them. This includes energy drinks, sports drinks, and soda. Avoid alcohol. Avoid spicy or fatty foods. General instructions Take bmts-kee-gwrujeg and prescription medicines only as told by your doctor. Rest at home while you get better. Drink enough fluid to keep your pee (urine) pale yellow. Take slow and deep breaths when you feel sick to your stomach. Avoid food or things that have strong smells. Wash your hands often with soap and water. If you cannot use soap and water, use hand editorial writer. Make sure that all people in your [...] drink what your doctor tells you. Take fxan-whl-yyzjesl and prescription medicines only as told by [...] 06/16/2012 Document Revised: 12/06/2018 Document Reviewed: 12/06/2018 [employer] Patient Education 2020 [employer] Additional Information VACCINATE! IT SAVES LIVES! Members of the community who have not yet received the COVID-19 vaccine and would like to receive it can visit one of [facility] vaccine clinics. There are many vaccine clinic locations within the [facility]. For locations and available times, please visit https://gettheshot.coronavirus.[place].gov/. It is important to note that some COVID mobile vaccine clinics are held outdoors and may be canceled in rainy or stormy conditions. To learn more about pediatric vaccinations (ages 5-11), we invite you to visit the [facility] webpage. https://www.[facility].org/pages/8802-Ypgld-Aolczapredy-Zvejpkdyxi-Larlv-Lmh stions.htmlTo learn more about the COVID-19 vaccine, we invite you to visit the CDC website for a list of frequently asked questions.https://www.cdc.gov/coronavirus/2019-ncov/vaccines/faq.html [facility] Patient Portal Access Instructions: Stay connected with your healthcare team and access your personal medical information anytime with the [facility] Patient Portal. Please follow the directions below to create your [employer] account: 1.Access the email account you provided upon registration to the hospital/physician office.2.Look for an invitation email from [facility].3.Open the email and access the invitation link: AcceptInvitation to [facility].4.Fill in the required joy to create your account. To access your account, visit Fixational/GENWIhart. Click the blue button labeled Access Patient Portal and then log in with the username and password that you created in the steps above. You will be able to view your test results, lab results, a summary of your visits, upcoming appointments and more. There is also a convenient messaging option where you can send secure messages to your p Wavestreamvider. In addition, you will have the ability to download any documents or summaries to your computer and/or send the information securely to a physician. Remember that your healthcare information is confidential, so carefully consider who you will allowto register on the [facility] Patient Portal for access to your information. You can also access the [facility] Patient Portal on the Akusticawhere della. Simply click on Patient Portal and then log into your account. If you would like to receive a full copy of your medical records, please contact the [facility] Medical Records Department by calling [phone], Wednesday through Wednesday between 8 a.m. and [...] Call your local pharmacy or go to http://Planeta.ru.GOintegro/0A0Zh9h to find one close to you.3.Make use of household items: Use cat litter or old coffee grounds to dispose medications if other options arenot available. Mix your drugs with these household products, seal them in an airtight container andthrow it into the garbage. Call [facility]: [phone] to be sure your drugs can be [...] Education Materials Cannabinoid Hyperemesis Syndrome Nausea, Adult, Frzw-op-Ywqc Medication Leaflets My discharge plan and instructions have been reviewed and explained to me and I,GHISLAINE GIVENS understand my current condition and have read and understand these discharge instructions. I have received a written copy of the plan/instructions. If I have questions, I am aware that I should contact my doctor. Patient/Spooler Operator Signature: Date/Time: Relationship to Patient: Witness Name/Signature: Date/Time: [facility]08-03-2023 Note ORIGINAL EXAMINATION: GASTRIC EMPTYING STUDY02/11/2023 [...] Date: 02/11/2023 3:41:00 PM [facility] Evaluation + Plan noteExtracted from: Title:History and Physical Author:MARTI WEBB HEATSET WINDER OPERATOR-MEAT BONER AND SLICER Date:02/11/23 1. Abdominal pain 2. Hyponatremia 3. [...] and may include grammatical and/or spelling errors. [facility] 08-03-2023 Note ORIGINAL EXAMINATION: TRANSVAGINAL PELVIC [...] Sign Date: 02/11/2023 12:11:13 PM Ordering Provider: [address]03-2023 Note ORIGINAL EXAMINATION: ONE SUPINE XRAY [...] Sign Date: 02/11/2023 9:28:54 AM Ordering Provider: [address]03-2023 Note ORIGINAL EXAMINATION: COMPLETE ABDOMINAL ULTRASOUND 02/11/2023 [...] that due to limited diagnostic capabilities in [facility], I recommend she go back to the ER since she is having pain and unable to keep down fluids. She understands. She does have a PCP, but would like a new one. I had our outpatient scheduler help with scheduling a PCP appointment for the future, but still advise she go to the ER today. [facility] Hospital Discharge instructions* Discharge Instructions* Abdirizak [...] your visit today. Please follow [facility] provider with any questions or concerns about your results today. Thank you for choosing [facility] for your care. Sincerely, Abdirizak Ramirez MD documented in this [facility]07-16-2023 Emergency department Note* Abdirizak Ramirez MD - 01/24/2023 10:03 AM EDT [facility] ED EMERGENCY DEPARTMENT ENCOUNTER Pt Name: Ghislaine [...] Culture. Procedure Abnormality Status --------- ------ Complete Urinalysis[[id number]] Abnormal Final result Please view results for [...] 129/74 Pulse: 65 71 71 70 Resp: 15 Temp: TempSrc: SpO2: 100% 95% 97% [...] of DVT, no recent surgery/immobilization. Based on singaporean syncope rule (see below), patient is low risk and well appearing here, plan to discharge the patient home with PMD follow up. Jay syncope rule: predisposition to vasovagal symptoms/consistent with [...] 01:00:46 PM PATIENT REFERRED TO: Amy Solorzano [facility] [phone] Schedule an appointment as soon as [...] Ramirez MD [facility] Emergency Medicine Physician Acute Care [facility] Abdirizak Ramirez MD 01/24/23 1303 * Tamica Penaloza RN - 01/24/2023 10:03 AM EDT Patient to room 15 with c/o vomiting for 3 weeks. Patient reports being at [facility] and being told it was [facility], and there was nothing more they could do for her. Patient reports having Zofran at home that she doesn't take, because it has not relieved her symptoms. V/S obtained, call light within reach. documented in this encounterSDayton [facility] [id number] Emergency department Triage note* Tamica Penaloza RN - 01/24/2023 10:03 AM EDT Patient to room 15 with c/o vomiting for 3 weeks. Patient reports being at [facility] and being told it was [facility], and there was nothing more they could do for her. Patient reports having Zofran at home that she doesn't take, because it has not relieved her symptoms. V/S obtained, call light within reach. [id number] Physician Emergency department Note* Abdirizak Ramirez MD - 01/24/2023 10:03 AM EDT [facility] ED EMERGENCY DEPARTMENT ENCOUNTER Pt Name: Ghislaine [...] Culture. Procedure Abnormality Status --------- ------ Complete Urinalysis[[id number]] Abnormal Final result Please view results for [...] of DVT, no recent surgery/immobilization. Based on singaporean syncope rule (see below), patient is low risk and well appearing here, plan to discharge the patient home with PMD follow up. Jay syncope rule: predisposition to vasovagal symptoms/consistent with [...] PM PATIENT REFERRED TO: Amy Solorzano [address] [facility] [phone] Schedule an appointment as soon as possible [...] Abdirizak Ramirez MD [facility] Emergency Medicine Physician [facility] Abdirizak Ramirez MD 01/24/23 1303 [facility] [id number] Discharge summary Author Lexus Villatoro [facility] January 15, 2023 2:12pm Note Date/Time January 15, 2023 2:11p m [facility] Medical Records Department [address] [facility] [place] [address] Instructions for Home/Discharge Instructions 01/15/23 1411 MR#: [id number] Acct: [id number] Name: GIVENSGHISLAINE VERENICE Rep #:[id number] : 1990 32 From: Lexus Villatoro MD PCP: [facility] St atus:ADM BOB Discharge Instructions Diet Discharge [...] Attending Provider: Lexus Villatoro Primary Care Provider: [facility] Instructions Patient Instructions: Cannabinoid Hyperemesis Syndrome, ED [...] 7 0RF Referrals / [facility] [place] - Within 1 Week Disposition Disposition (needs filled in before D/C Order can be placed): Home, Self Care 01/15/23 1411<Electronically signed by Lexus Villatoro MD>Lexus Villatoro MD CC: [facility] ~ Signed ADDENDUM by Dr. Lexus Villatoro MD on 01/15/23 at 1412 You were noted to have a small ovarian cyst, this was seen previous on a scan ofyour abdomen as well. Please follow up with your PCP or ob/wind operations manager for further management and monitoring 01/15/23 141<Electronically signed by Lexus Villatoro MD>Lexus Villatoro MD cc: [facility] ~* Signed [facility] Work Phone: 1(952) 609-211007-07-2023 Discharge summary Author Lexus Villatoro [facility] January 15, 2023 2:23pm Note Date/Time January 15, 2023 2:12p m [facility] Medical Records Department [address] [place] [address] Discharge Summary 01/15/23 141 MR#: [id number] Acct: [id number] Name: GHISLAINE GIVENS Rep #:[id number] : 1990 32 From: Lexus Villatoro MD PCP: [facility] St atus:ADM BOB Location: [address] [address] Providers Date of Admission: 01/14/23 Date of Discharge: 01/15/23 Primary Care Physician: [facility] Reason For Visit: INTRACTABLE NAUSEA VOMITING, [...] status: with neurologic complications Diabetes mellitus terminal carman insulin use: without terminal carman use Diabetes mellitus type: type 2 Plan [...] diabetes mellitus, hypertension, depression who presents to [facility] 01/14/2023 with 1 week of nausea, [...] diet for this, strongly recommend lab work [facility]. D/c instructions as follows: -Would recommend lab [...] Please follow up with your PCP or ob/wind operations manager for further management and monitoring -Please call [...] % (Auto) 56.4, Lymph % (Auto) 34.2, Young% (Auto) 8.2, Eos % (Auto) 0.3, Baso [...] Attending Provider: Lexus Villatoro Primary Care Provider: [facility] Sophy Santiago Instructions Patient Instructions: Cannabinoid Hyperemesis [...] Please follow up with your PCP or ob/wind operations manager for further management and monitoring -Please call [...] Qty: 7 0RF [facility] - Within 1 Week Disposition Disposition (needs filled in before D/C Order can be placed): Home, Self Care Charges/Coding Visit Charges Inpatient E&M: 08672 Disch Hosp >30min 07/07/23 1423 <Electronically signed by Lexus Villatoro MD> Cosigner Signature (if applicable): CC: Dr. Lexus Villatoro MD; [facility]~ Signed [facility] Work Phone: 1(837) 602-894007-06-2023 History and physical note Author Lexus Villatoro [facility] January 14, 2023 6:10pm Note Date/Time January 14, 2023 3:59p m [facility] Medical Records Department [address] [place] [address] H&P Exam - Hospitalist 01/14/23 1552 MR#: [id number] Acct: [id number] Name: GHISLAINE GIVENS Rep #:[id number] : 1990 32 From: Lexus Villatoro MD PCP: [facility] St atus:ADM BOB Location: [place] [address] HPI - General General Date of Admission: 01/14/23 Date of Service: 01/14/23 Chief Complaint: Nausea HPI Narrative GHISLAINE GIVENS, is a 32-year-old female with history of type 2 diabetes mellitus, hypertension, depression who presents to [facility] 01/14/2023 with 1 week of nausea, [...] urinating regularly. Denies any other specific complaints [facility] Medical History Anxiety Asthma Constipation Depression [...] % (Auto) 59.7, Lymph % (Auto) 31.2, Young% (Auto) 7.7, Eos % (Auto) 0.2, Baso [...] Clarity Clear, Urine pH 8.0, Ur Specific [place] 1.015, Urine Protein 15 H, Urine Glucose [...] documentation, 58minutes Charges/Coding Visit Charges Inpatient E&M: 49186 Init Hosp L2 01/14/23 1810 <Electronically signed by Lexus Villatoro MD> Cosigner Signature (if applicable): CC: Dr. Lexus Villatoro MD; [facility]~ Signed [facility] Work Phone: 1(467) 610-840707-06-2023 Discharge summary Author Willie Dhillon [facility] January 14, 2023 3:33pm Note Date/Time January 14, 2023 12:08 pm [facility] Medical Records Department [address] [place] [address] Emergency Department Summary 01/14/23 MR#: [id number] Acct: [id number] Name: GHISLAINE GIVENS Rep #:[id number] : 1990 32 From: Willie Dhillon MD PCP: [facility] St atus:REG ER Location: ED HPI History [...] had any for a day or so. [facility] Medical History Anxiety Asthma Constipation Depression Diabetes [...] Delivery Method Room Air Room Air MDM [facility] MDM Narrative Medical decision making narrative: Patient [...] % (Auto) 59.7 Lymph % (Auto) 31.2 Young % (Auto) 7.7 Eos % (Auto) 0.2 [...] Clarity Clear Urine pH 8.0 Ur Specific [place] 1.015 Urine Protein 15 H Urine Glucose [...] 13:57 EDT Reading Location ID and State: [address] [place] [address] , Service support , Discharge Plan Dx/Rx/DC Orders Clinical Impression: Failure of outpatient treatment, Elevated serum creatinine, Intractable nausea and vomiting, Acute hypokalemia Disposition Disposition: [facility] What to do if you have Problems For any increased pain, shortness of breath, bleeding, nausea or vomiting, chestpain, or any unexpected problems, contact your Primary Care Provider. Call [facility] ([phone]) or report to the closest Emergency Room. Call 911 if necessary. 01/14/23 1533 <Electronically signed by Willie Dhillon MD> Cosigner Signature (if applicable): CC: [facility] ~ Signed [facility] Work Phone: 1(727) 755-677907-04-2023 Discharge summary Author Fabricio Guevara [facility] January 12, 2023 1:18pm Note Date/Time January 12, 2023 10:58 am [facility] Medical Records Department [address] [place] [address] Emergency Department Summary 01/12/23 MR#: [id number] Acct: [id number] Name: GHISLAINE GIVENS Rep #:[id number] : 1990 32 From: Fabricio Guevara MD PCP: [facility] St atus:REG ER Location: ED HPI HPI [...] similar symptoms: Yes Recent Illness/Hospitalization: No [facility] Medical History Anxiety Asthma Constipation Depression [...] resolved. She will be discharged home with Loc. Fluids and rest. I urged her to [...] 30 minutes before bedtime [facility]] - 3-5 Days if not improving Activity Restrictions/Additional Instructions: Zofran as needed for nausea. Follow-up with your doctor as needed. Stop using marijuana. Disposition Disposition: Home, Self Care What to do if you have Problems For any increased pain, shortness of breath, bleeding, nausea or vomiting, chestpain, or any unexpected problems, contact your Primary Care Provider. Call [facility] ([phone]) or report to the closest Emergency Room. Call 911 if necessary. 01/12/23 1318 <Electronically signed by Fabricio Guevara MD> Cosigner Signature (if applicable): CC: [facility] ~ Signed [facility] Work Phone: 1(282) 189-529407-04-2023 Note. MICRO - Microbiology PROCEDURE: Urine Culture [...] Locations *1: This test was performed at: [facility], [address] [place] [address], [address]- , [facility] ([place])01-10-2023 Hospital Discharge instructions Patient Education 01/10/2023 [...] and water are not available, use alcohol-based editorial writer to keep from spreading the infection to [...] Yellow color of the eyes or skin [phone] [employer]. [address] [place] [address]. All rights reserved. This information is not [...] National Alcohol and Substance Abuse Information Center (965)-707-2489 www.addictioncareoptions.com National [place] on Alcoholism and Drug Dependence 140-043-5914 www.ncadd.org Marijuana Anonymous 972-311-6745 www.marijuana-anonymous.org When to seek medical advice Call your healthcare provider right away if any of these occur: You feel extreme depression, fear, anxiety, or anger toward yourself or others. You feel out of control. You feel that you may try to harm yourself or another. You experience chest pain or shortness of breath. [phone] The [employer]. [address] [place] [address], [place] [address]. All rights reserved. This information is not intended as a substitute for professional medical care. Always follow yourhealthcare professional's instructions. Follow Up Care 01/10/2023 13:44:57 With:Call Physician Referral Address:Unknown When:2-4 days [facility] 07-02-2023 Note Discharge Instructions Thank you for allowing [facility] to assist you with your healthcare needs. [...] may report side effects to FDA at 2-683-OOB-6950. What other drugs will affect promethazine? Using promethazine with other drugs that make you drowsy can worsen this effect. Ask your doctor before using opioid medication, a sleeping pill, a muscle relaxer, or medicine for anxiety or seizures. Other drugs may affect promethazine, including prescription and bntt-gne-kacdrqz medicines, vitamins, and herbal products. Tell your [...] to ensure that the information provided by [employer]. ('Multum') is accurate, up-to-date, and complete, but no guarantee is made to that effect. Drug information contained herein may be time sensitive. Myla information has been compiled for use by healthcare practitioners and consumers in the [place] and therefore Myla does not warrant that uses outside of the [place] are appropriate, unless specifically indicated otherwise. [employer] drug information does not endorse drugs, diagnose patients or recommend therapy. [employer] drug information isan informational resource designed to [...] effective or appropriate for any given patient. Myla does not assume any responsibility for any aspect of healthcare administered with the aid of information Myla provides. The information contained herein is not intended to cover all possible uses, directions, precautions, warnings, drug interactions, allergic reactions, or adverse effects. If you have questions about the drugs you are taking, check with your doctor, nurse or pharmacist. Copyright 7932-4481 [employer]. Version: 8.01. Revision Date: 08/06/2021. prochlorperazine (oral/injection) [...] What is prochlorperazine? Prochlorperazine is a phenothiazine (SBQH-dx-LXWI-a-zeen) antipsychotic medicine that is used to treat [...] may report side effects to FDA at 7-297-LZP-3943. What other drugs will affect prochlorperazine? Using [...] may affect prochlorperazine. This includes prescription and noiu-zie-hxsueuv medicines, vitamins, and herbal products. Not all [...] to ensure that the information provided by [employer]. ('Multum') is accurate, up-to-date, and complete, but no guarantee is made to that effect. Drug information contained herein may be time sensitive. Myla information has been compiled for use by healthcare practitioners and consumers in the [place] and therefore Myla does not warrant that uses outside of the [place] are appropriate, unless specifically indicated otherwise. [employer] drug information does not endorse drugs, diagnose patients or recommend therapy. [employer] drug information isan informational resource designed to [...] effective or appropriate for any given patient. Myla does not assume any responsibility for any aspect of healthcare administered with the aid of information Myla provides. The information contained herein is not intended to cover all possible uses, directions, precautions, warnings, drug interactions, allergic reactions, or adverse effects. If you have questions about the drugs you are taking, check with your doctor, nurse or pharmacist. Copyright 7631-2020 Book[employer]. Version: 12.. Revision Date: 11/03/2019. Education Materials [...] and water are not available, use alcohol-based editorial writer to keep from spreading the infection to [...] Yellow color of the eyes or skin 3551-8650 [employer]. [address] [place] [address]. All rights reserved. This information is not [...] National Alcohol and Substance Abuse Information Center ([phone] www.addictioncareSoundtrackerions.com National [place] on Alcoholism and Drug Dependence 751-474-7684 www.ncadd.org Marijuana Anonymous 261-074-6081 www.marijuana-anonymous.org When to seek medical advice Call your healthcare provider right away if any of these occur: You feel extreme depression, fear, anxiety, or anger toward yourself or others. You feel out of control. You feel that you may try to harm yourself or another. You experience chest pain or shortness of breath. 2798-0142 [employer]. [address] [place] [address]. All rights reserved. This information is not intended as a substitute for professional medical care. Always follow yourhealthcare professional's instructions. Additional Information VACCINATE! IT SAVES LIVES! Members of the community who have not yet received the COVID-19 vaccine and would like to receive it can visit one of [facility] vaccine clinics. There are many vaccine clinic locations within the [facility]. For locations and available times, please visit www.gettheshot.coronavirus.[place].gov/. It is important to note that some COVID mobile vaccine clinics are held outdoors and may be canceled in rainy or stormy conditions. To learn more about pediatric vaccinations (ages 5-11), we invite you to visit the [facility] webpage. https://www.[facility].org/pages/0550-Acjjw-Tzmjrzprcmk-Jgedkldhiw-Qyyuc-Tes stions.htmlTo learn more about the COVID-19 vaccine, we invite you to visit the CDC website for a list of frequently asked questions. https://www.cdc.gov/coronavirus/2019-ncov/vaccines/faq.html [facility] Patient Portal Access Instructions: Stay connected with your healthcare team and access your personal medical information anytime with the [facility] Patient Portal. If you would like a full copy of your medical records please contact the [facility] Medical Records Department Wednesday through Wednesday between 8a.m. and 4:30p.m. Please follow the directions below to access the portal: 1.Access the email account you provided upon registration to the [facility].2.Look for an invitation email from [facility].3.Open the email and access the invitation link: Accept Invitation to [facility]4.Fill in the required joy to create your account. Sign into www.[email or web address] with your username and password that you [...] you will allow to register on the [facility] Patient Portal for access to your information. You can also access the [facility] Patient Portal on the PaymentOne della. Simply click on Health Records under HealthData and then click on the The Local logo. HOW TO SAFELY DISPOSE OF PRESCRIPTION [...] Call your local pharmacy or go to http://bit.GOintegro/5I4At9v to find one close to you.3.Make use of household items: Use cat litter or old coffee grounds to dispose medications if other options arenot available. Mix your drugs with these household products, seal them in an airtight container andthrow it into the garbage. Call [facility]: [phone] to be sure your drugs can be [...] aware that I should contact my doctor. Patient/Spooler Operator Signature: Date/Time: Relationship to Patient: Witness Name/Signature: Date/Time: [facility] Michaelirma [id number] Note ORIGINAL EXAMINATION: CT OF THE ABDOMEN [...] by: Krishna Ramírez MD Preliminary Report By: Johs West Electronically signed By Krishna Ramírez MD Dictated Date: 01/10/2023 4:35:53 PM Prelim Date: 01/10/2023 4:57:49 PM Sign Date: 01/10/2023 4:59:31 PM [facility] Note ORIGINAL EXAMINATION: CT OF THE ABDOMEN [...] Date: 01/10/2023 4:59:31 PM Ordering Provider: ESSIE [facility]07-02-2023 Evaluation + Plan note Diagnostic Tests Pending * Urine Culture 01/10/23 [facility] 06-29-2023 Discharge summary Author Poli Barfield [facility] January 07, 2023 2:08pm Note Date/Time January 07, 2023 8:55 am [facility] Medical Records Department [address] [place] [address] Emergency Department Summary 01/07/23 MR#: [id number] Acct: [id number] Name: GHISLAINE GIVENS Rep #:[id number] : 1990 32 From: Poli Farah PCP: [facility] St atus:REG ER Location: ED HPI HPI [...] clinician: N/A This note was generated with Capsearchation software. It may contain incorrectwords, spelling, and [...] % (Auto) 53.2 Lymph % (Auto) 38.5 Young % (Auto) 5.9 Eos % (Auto) 1.0 [...] Days Qty: 21 0RF [facility]: [facility] Art[facility] [Primary Care Provider] - 3-5 Days [...] your Primary Care Provider. Call [facility] ([phone]) or report to the closest Emergency Room. Call 911 if necessary. 01/07/23 1408 <Electronically signed by Poli Farah> Cosigner Signature (if applicable): CC: [facility] ~ Signed [facility] Work Phone: 1(963) 987-515405-09-2023 History of Present illness Narrative* Andres Galaviz APRN.[employer] - 11/17/2022 8:45 AM EDT Images from [...] of care. This note was generated using Designlab software. It may contain errors in wording, punctuation, or spelling. Andres Galaviz APRN.SUZANNE [facility] Miscellaneous Notes* Telephone Encounter - Romana [...] ER if symptoms worsen. documented in this encounterPeoples [facility]03-30-2023 History of Present illness Narrative* Shamika Goins PA-C - 10/08/2022 9:08 AM EDT Images from the original note were not included. This note was created using BusyFlow. 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 She is an uncontrolled diabetic. Last A1c [...] tolerated it fine. Recommend she call her therapy coordinator today to be seen. Likely MRSA with [...] Z86.14 Shamika Goins PA-C documented in this [facility]Pe[facility]02-04-[address] Villatoro [facility] August 15, 2022 11:44am Note Date/Time August 15, 2022 1 1:38am [facility] Medical Records Department [address] [place] [address] Instructions for Home/Discharge Instructions 08/15/22 1132 MR#: [id number] Acct: [id number] Name: GHISLAINE GIVENS Rep #:[id number] : 1990 32 From: Lexus Villatoro MD [...] be sent to your preferred pharmacy, [facility] ?Please continue all other home medications -Please [...] Urbina MD; Dr. Sophy Gibbons ~ Signed [facility] Work Phone: 1(592) 966-821302-03-[address] Villatoro [facility] August 14, 2022 8:50am Note Date/Time August 14, 2022 8 :50am [facility] Medical Records Department [address] [place] [address] Progress Note - Hospitalist 08/14/22 0846 MR#: [id number] Acct: [id number] Name: GHISLAINE GIVENS Rep #:[id number] : 1990 32 From: Lexus Villatoro MD PCP: Dr. Sophy Gibbons Status:ADM IN Location: [place] [address] Subjective Subjective Irritable this morning, reports her [...] Neut % (Auto) 65.7, Lymph % (Auto)22.3, Young % (Auto) 8.6, Eos % (Auto) 0.6, [...] diabetes mellitus, hypertension, depression who presents to [facility] 08/12 with hyperglycemia andtachycardia. She was [...] documentation, 30Minutes Charges/Coding Visit Charges Inpatient E&M: 55230 Subs Hosp L2 08/14/22 0850 <Electronically signed by Lexus Villatoro MD> Cosigner Signature (if applicable): CC: ~ Signed [facility] Work Phone: 1(808) 782-601502-02-[address] Villatoro [facility] August 13, 2022 4:34pm Note Date/Time August 13, 2022 8 :40am [facility] Medical Records Department [address] [place] [address] Progress Note - Hospitalist 08/13/22 0832 MR#: [id number] Acct: [id number] Name: GHISLAINE GIVENS Rep #:[id number] : 1990 32 From: Lexus Villatoro MD PCP: Dr. Sophy Gibbons Status:ADM IN [facility] Subjective Subjective Reports slight cough which she [...] % (Auto) 69.8, Lymph % (Auto) 20.1, Young % (Auto) 8.7, Eos % (Auto) 0.1, [...] (MDRD) Non-Af 61, BUN/Creatinine Ratio 7.2 L, Xkcywiu345 H, Calcium 9.6, Magnesium 1.6, Total Bilirubin 0.50, AST 20, ALT 13, Alkaline Phosphatase 136 H, Troponin I High Sens 6, Total Protein 9.2 H, Albumin2.9 L, Globulin 6.3 H, Albumin/Globulin Ratio 0.5 L 08/12/22 16:22: Acetone Level NEGATIVE 08/12/22 16:22: Urine Color Yellow, Urine Clarity Clear, Urine pH 6.0, Ur Specific [place] 1.010, Urine Protein 100 H, Urine Glucose [...] 71.0 H, Lymph % (Auto) 17.3 L, Young % (Auto) 9.7, Eos % (Auto) 0.2, Baso % (Auto) 0.5, Absolute Neuts (auto) 10.6 H, Absolute Lymphs (auto) 2.59, Nucleated RBC % 0 08/13/22 05:17: Sodium 134 L, Potassium 4.1, Chloride 102, Carbon Dioxide 22.0, Anion Gap 10, BUN 7, Creatinine 0.86, Estim Creat Clear Calc 89.54, Est GFR (MDRD) Af Amer 99, Est GFR (MDRD) Non-Af 82, BUN/Creatinine Ratio 8.1 L, Ednziyj424 H, Calcium 8.6, Magnesium 2.2, Total Bilirubin [...] 17:39 EST Reading Location ID and State: [facility] / [place] , Service support , Abdomen/Pelvis CT 08/12/22 [...] diabetes mellitus, hypertension, depression who presents to [facility] 08/12 with hyperglycemia andtachycardia. She was [...] documentation, 40Minutes Charges/Coding Visit Charges Inpatient E&M: 07947 Subs Hosp L2 08/13/22 1634 <Electronically signed by Lexus Villatoro MD> Cosigner Signature (if applicable): CC: ~ Signed [facility] Work Phone: 1(969) 872-177202-02-[address] Christiansen [facility] August 12, 2022 10:42pm Note Date/Time August 12, 2022 3 :41pm [facility] Medical Records Department [address] [place] [address] Emergency Department Summary 08/12/22 MR#: [id number] Acct: [id number] Name: GHISLAINE GIVENS Rep #:[id number] : 1990 32 From: Alex Christiansen DO PCP: Dr. Sophy Gibbons Status:ADM IN Location: [address] History of Present Illness Chief Complaint: Hyperglycemia Narrative Narrative: 32-year-old female presenting with hyperglycemia. She states that [facility] and they were unable to check her blood sugar because they could not find a glucometer because she was tachycardic [facility] fear that she might be [...] which is completely healing and doing well. [facility] Medical History (Updated 08/12/22 @ 21:20 by [...] % (Auto) 69.8 Lymph % (Auto) 20.1 Young % (Auto) 8.7 Eos % (Auto) 0.1 [...] Color Urine Clarity Urine pH Ur Specific [place] Urine Protein Urine Glucose (UA) Urine Ketones [...] (Auto) Neut % (Auto) Lymph % (Auto) Young % (Auto) Eos % (Auto) Baso % [...] Clarity Clear Urine pH 6.0 Ur Specific [place] 1.010 Urine Protein 100 H Urine Glucose [...] (Auto) Neut % (Auto) Lymph % (Auto) Young % (Auto) Eos % (Auto) Baso % [...] Color Urine Clarity Urine pH Ur Specific [place] Urine Protein Urine Glucose (UA) Urine Ketones [...] 17:39 EST Reading Location ID and State: [facility] / [place] , Service support , Abdomen/Pelvis CT 08/12/22 17:27 IMPRESSION: 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 Multiple subcentimeter retroperitoneal nodes of uncertain etiology but stable since previous study most likely inflammatory Electronically Signed: Andres Ramos MD at 18:42 EST , Discharge Plan Disposition Disposition: Acute Care [facility] Discharge Date/Time: 08/12/22 22:03 What to do if you have Problems For any increased pain, shortness of breath, bleeding, nausea or vomiting, chestpain, or any unexpected problems, contact your Primary Care Provider. Call [facility] ([phone]) or report to the closest Emergency Room. Call 911 if necessary. 08/12/222241 <Electronically signed by Alex Christiansen DO> Cosigner Signature (if applicable): CC: Dr. Sophy Gibbons ~ Signed [facility] Work Phone: 1(898) 288-117302-01-2023 History and physical note Author Dr. Urbina [facility] August 12, 2022 9:20pm Note Date/Time August 12, 2022 8 :09pm [facility] Medical Records Department [address] [place] [address] [place] [address] H&P Exam - Hospitalist 08/12/222008 MR#: [id number] Acct: [id number] Name: GHISLAINE GIVENS Rep #:[id number] : 1990 32 From: Valencia Urbina MD PCP: Dr. Sophy Gibbons Status:ADM IN Location: [facility] [id number]- 1 HPI - General General Date of [...] to the emergency room from [facility] for hyperglycemia and tachycardia. 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 [facility] Medical History (Updated 08/12/22 @ 21:20 [...] % (Auto) 69.8, Lymph % (Auto) 20.1, Young % (Auto) 8.7, Eos % (Auto) 0.1, Baso % (Auto) 0.3, Absolute Neuts (auto) 13.2 H, Absolute Lymphs (auto) 3.81, Nucleated RBC % 0, Differential Comment SCANNED, Diff Path Review May foll 08/12/22 16:22: Sodium 130 L, Potassium 3.9, Chloride 95 L, Carbon Dioxide 23.0,Anion Gap 12, BUN 8, Creatinine 1.11 H, Estim Creat Clear Calc 69.38, Est GFR (MDRD) Af Amer 74, Est GFR (MDRD) Non-Af 61, BUN/Creatinine Ratio 7.2 L, Efydhrf194 H, Calcium 9.6, Magnesium 1.6, Total Bilirubin 0.50, AST 20, ALT 13, Alkaline Phosphatase 136 H, Troponin I High Sens 6, Total Protein 9.2 H, Albumin2.9 L, Globulin 6.3 H, Albumin/Globulin Ratio 0.5 L 08/12/22 16:22: Acetone Level NEGATIVE 08/12/22 16:22: Urine Color Yellow, Urine Clarity Clear, Urine pH 6.0, Ur Specific [place] 1.010, Urine Protein 100 H, Urine Glucose [...] room physician. Charges/Coding Visit Charges Inpatient E&M: 60759 Init Hosp L2 08/12/222119 <Electronically signed by Valencia Urbina MD> Cosigner Signature (if applicable): CC: Dr. Valencia Urbina MD; Dr. Sophy Gibbons~ Signed [facility] Work Phone: 1(828) 860-636809-12-2022 History of Present illness Narrative* Luis Mayes, [...] 23, 2022 1:00 PM documented in this encounterPeoples Hospital09-12-2022 History of Present illness Narrative* Sid [...] CORONAVIRUS Sid Bravo MD documented in this encounterPeoples Hospital07-25-2022 History of Present illness Narrative* Alyssa Jaime APRN.[facility] - 02/02/2022 9:56 AM EDT Subjective The history is provided by the patient. No foreign language instructor was used. HPI Ghislaine Givens is a 32 year old female who presents today for CC of concerns that she was in ERyesterday and was not treated for a pneumonia seen on CAT scan. Patient over the past month has been seen in ED for vomiting and abdominal pain. She is seeing GI at [facility], was seen on Wednesday and call them this morning. She is scheduled for a scope. Multiple CT scans that are negative, however yesterday's revealed possible pneumonia, pneumonitis. She was concerned she was not treated. She denies fever, chills, back pain or cough. BP 120/72 Pulse 74 Temp 36.2 C (97.2 F) Resp 16 Wt 92.5 kg (204 lb) LMP 05/18/2021 GxJ033% BMI 32.93 kg/m Social History Tobacco Use Smoking status: Current Every Day Smoker Packs/day: 0.50 Years: 3.00 Pack years: 1.50 Types: Cigarettes Smokeless tobacco: Never Used Substance Use Topics Alcohol use: Yes Comment: Seldom Drug use: No PAST MEDICAL HISTORY Diagnosis Date Bipolar 1 disorder (HCC) 2007 Depression Elevated BP 04/28/2013 Insomnia I have confirmed and edited as necessary, the [facility] Review of Systems Constitutional: Negative for chills, [...] for primary care, unable to get in [place] until May. - CONSULT TO PULM/CRITICAL CARE [...] Level: 3 - Low documented in this encounterPeoples Hospital07-25-2022 Instructions* Patient Instructions* Alyssa Jaime APRN.CNP - 02/02/2022 9:52 AM EDT Will set up follow for primary care and pulmonology To ER for worsening symptoms, increased pain, fevers, vomiting, decreased urine output, blood in her urine blood in her stools or dark tarry stools. documented in this encounterPeoples Hospital11-04-2021 History of Present illness Narrative* Luis Mayes, RT(R) - 05/15/2021 10:00 AM EDT Radiology [...] 15, 2021 9:57 AM documented in this encounterPeoples Hospital10-18-2013 History of Past illness Narrative* Problem [...] of this encounter (statuses as of 02/02/2022) [facility] Narrative* Problem [...] of this encounter (statuses as of 03/23/2022) [facility] Narrative* Problem [...] of this encounter (statuses as of 10/08/2022) [facility] Narrative* Problem [...] of this encounter (statuses as of 10/12/2022) [address]18-[address] History of Past illness Narrative* Problem Noted [...] of this encounter (statuses as of 11/17/2022) [facility] Narrative* Problem [...] of this encounter (statuses as of 02/04/2023) [facility] Narrative* Problem [...] of this encounter (statuses as of 02/24/2023) [facility] Narrative* Problem [...] of this encounter (statuses as of 03/02/2023) [facility] Narrative* Problem [...] of this encounter (statuses as of 03/02/2023) [facility] Narrative* Problem [...] of this encounter (statuses as of 03/09/2023) [facility] Narrative* Problem [...] of this encounter (statuses as of 03/10/2023) [facility] Narrative* Problem [...] of this encounter (statuses as of 03/12/2023) [facility] Narrative* Problem [...] of this encounter (statuses as of 03/26/2023) [facility] Narrative* Problem [...] of this encounter (statuses as of 04/16/2023) [facility] Narrative* Problem [...] of this encounter (statuses as of 07/02/2023) [facility] summary Author Rickey Gifford [facility] May 09, 2023 2:02pm Note Date/Time May 09, 2023 2 :02pm [facility] Medical Records Department [address] [place] [address] Discharge Summary 05/09/23 1354 MR#: [id number] Acct: [id number] Name: GHISLAINE GIVENS Rep #:[id number] : 1990 33 From: Rickey Gifford DO PCP: Care Physician,No Primary Status :ADM IN [place] [facility] [place]-[place] Providers Date of Admission: 05/04/23 Primary Care Physician: No Primary Care Phys Consultations 05/04/23 19:30 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 Also reviewing records through [facility] Medications at Discharge Home Medications albuterol sulfate [...] to review data from outside hospitals including [facility] as well as [facility] and [place], [place]. Patient has had CAT scans, EGDs, [...] by some anxiety. Do recommend follow-up with yourprimary care provider. To be beneficial for you [...] Primary [Primary Care Provider] - Amy Solorzano BOAT HOIST OPERATOR, BOAT HOIST OPERATOR-C [Non-Staff -Ordering Privileges] - Within 2 Weeks Disposition Disposition (needs filled in before D/C Order can be placed): Home, Self Care Charges/Coding Visit Charges Inpatient E&M: 71462 Disch Hosp >30min 05/09/23 1402 <Electronically signed by Rickey Gifford DO> Cosigner Signature (if applicable): CC: DPPrisca Forrest; TANVIC Amy Solorzano; Dr. Rickey Gifford DO; No Primary Care Physician~ Signed [facility] Work Phone: Discharge summary Author Gale Lr [facility] Note Date/Time November 28, 2024 12:31 pm [facility] Medical Records Department [address] [facility] [place] [address] Discharge Summary 11/28/24 1203 MR#: [id number] Acct: [id number] Name: GHISLAINE GIVENS Rep #:[id number] : 1990 34 From: Gale Lr DO PCP: BROOKLYN Warren NP-C Statu s:ADM IN Location: [place] [address] Providers Date of Admission: 11/25/24 Date of [...] who presented to the emergency department at [facility] on 11/25/2024 with a chief complaint [...] (Auto) 49.8, Lymph % (Auto) 43.0 H, Young % (Auto) 5.3, Eos % (Auto) 0.5, [...] as compared to prior study. Reading Location: [place] [address] D/C Instructions Discharge Diet: 1800 Calorie Control [...] tomorrow to set up appointment) Amy Solorzano, BOAT HOIST OPERATOR-C [Primary Care Provider] - In 1 Week Disposition Disposition (needs filled in before D/C Order can be placed): Home, Self Care Charges/Coding Visit Charges Inpatient E&M: 27645 Disch Hosp >30min 11/28/24 1231 <Electronically signed by Gale Lr DO> Cosigner Signature (if applicable): CC: VSC BOAT HOIST OPERATOR-C Amy Solorzano; Dr. Gale Lr DO~ Signed [facility] Work Phone: Discharge summary Author Frantz Coulter [facility] Note Date/Time January 01, 2025 1:06 pm [facility] Medical Records Department [address] [place] [address] Instructions for Home/Discharge Instructions 01/01/25 1259 MR#: [id number] Acct: [id number] Name: GHISLAINE GIVENS Rep #:[id number] : 1990 34 From: Frantz Coulter DO PCP: BROOKLYN Warren, BOAT HOIST OPERATOR-C Statu s:ADM IN Discharge Instructions Diet [...] SA Referrals / Follow Up: Amy Solorzano, MARIA G-C [Primary Care Provider] - Within 2 Weeks Disposition Disposition (needs filled in before D/C Order can be placed): Home, Self Care 01/01/25 1306<Electronically signed by Frantz Coulter DO>Frantz Coulter DO CC: BROOKLYN BOAT HOIST OPERATOR-C Amy Solorzano; Dr. Dewayne Grant, DO ~ Signed [facility] Work Phone: Discharge summary Author Frantz Coulter [facility] Note Date/Time January 01, 2025 1:34 pm [facility] Medical Records Department [address] [place] [address] Discharge Summary 01/01/25 1306 MR#: [id number] Acct: [id number] Name: GHISLAINE GIVENS Rep #:[id number] : 1990 34 From: Frantz Coulter DO PCP: BROOKLYN Warren, PATRICE Statu s:ADM IN Location: ICU CVICU 3-1 Providers Date of Admission: 12/31/24 Date of Discharge: 01/01/25 Primary Care Physician: BROOKLYN Warren, PATRICE Reason For Visit: DKA, CYCLICAL N/V AND [...] was seen in the emergency room at [facility] with complaints of uncontrolled nausea and [...] % (Auto) 64.4, Lymph % (Auto) 27.7, Young % (Auto) 6.4, Eos % (Auto) 0.3, [...] Clarity Cloudy, Urine pH 6.0, Ur Specific [place] 1.020, Urine Protein 30 H, Urine Glucose [...] Frantz Coulter Primary Care Provider: Amy Solorzano [facility] Consulting Providers: Dewayne Grant Discharge Orders/Prescriptions Prescriptions: [...] SA Referrals / Follow Up: Amy Solorzano, BOAT HOIST OPERATOR-C [Primary Care Provider] - Within 2 Weeks Disposition Disposition (needs filled in before D/C Order can be placed): Home, Self Care Charges/Coding Visit Charges Inpatient E&M: 87813 Disch Hosp 01/01/25 1332 <Electronically signed by Frantz Coulter DO> Cosigner Signature (if applicable): CC: BROOKLYN BOAT HOIST OPERATOR-C Amy Solorzano; Dr. Frantz Coulter DO~ Signed [facility] Work Phone: Evaluation noteNo assessment information available [facility] Work Phone: evaluation note* Diagnosis Onset Date Resolution Status Abdominal pain acute [facility] Work Phone: evaluation note* Diagnosis Abnormal lung scan- Primary Nonspecific abnormal results of pulmonary system function study Nausea and vomiting, unspecified vomiting type [facility]* Diagnosis Acute cough- Primary Mild intermittent asthmatic bronchitis without complication documented in this encounter [facility] note* Diagnosis Onset Date Resolution Status Abdominal pain acute Encounter for pre-employment health screening examination acute [facility] Work Phone: evaluation note* Diagnosis Onset Date Resolution Status Abdominal pain acute Encounter for pre-employment health screening examination acute Cellulitis of foot, right ac [place] Diabetes acute Diabetic foot infection acut e Leukocytosis acute [facility] Work Phone: Evaluation note* Diagnosis Onset Date Resolution Status Abdominal pain acute Encounter for pre-employment health screening examination acute Cellulitis and abscess of right lower extremity acute Cellulitis of foot, right ac [place] Diabetes acute Diabetes mellitus with diabetic polyneuropathy acute Diabetic foot infection acut e Leukocytosis acute Osteomyelitis acute Type 2 diabetes mellitus with foot ulcer acute 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 [facility] Work Phone: Evaluation note* Diagnosis Onset Date Resolution Status Cellulitis and abscess of right lower extremity acute Cellulitis of foot, right ac [place] Diabetes acute Diabetes mellitus with diabetic polyneuropathy [...] acut e Lactic acidosis acute Osteomyelitis acute [facility] Work Phone: Evaluation note* Diagnosis Onset Date Resolution Status Cellulitis and abscess of right lower extremity acute Cellulitis of foot, right ac [place] Diabetes acute Diabetes mellitus with diabetic polyneuropathy acute Diabetic foot infection acut e Leukocytosis acute Osteomyelitis acute Type 2 diabetes mellitus with foot ulcer acute 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 Cellulitis and abscess of right lower extremity acute Cellulitis of foot, right ac [place] Diabetes mellitus with diabetic polyneuropathy acute Diabetic foot infection acut e Lactic acidosis acute Osteomyelitis acute Type 2 diabetes mellitus with foot ulcer acute [facility] Work Phone: Evaluation note* Diagnosis Onset Date Resolution Status Cellulitis and abscess of right lower extremity acute Cellulitis of foot, right ac [place] Diabetic foot infection acut e Osteomyelitis acute Lactic acidosis resolved Acute pyelonephritis acute [facility] Work Phone: Evaluation note* Diagnosis Toe infection- Primary Unspecified local infection of skin and subcutaneous tissue Facial infection Other specified infectious and parasitic diseases History of MRSA infection Personal history of Methicillin resistant Staphylococcus aureus [facility]* Diagnosis Facial infection- Primary Other specified infectious and parasitic diseases documented in this encounter [facility] note* Diagnosis Onset Date Resolution Status Acute hypokalemia acute Cannabis abuse acute Diabetes acute Elevated serum creatinine ac [place] Failure of outpatient treatment acute Intractable nausea and vomiting acute [facility] Work Phone: Evaluation note* Diagnosis Onset Date Resolution Status Acute hypokalemia acute Cannabis abuse acute Diabetes acute Intractable nausea and vomiting acute [facility] Work Phone: Evaluation note* Diagnosis Nausea and vomiting, unspecified vomiting type- Primary Syncope and collapse documented in this encounter [facility] note* Diagnosis Generalized abdominal pain- Primary Abdominal pain, generalized documented in this encounter [facility] note* Diagnosis Chronic nausea- Primary Nausea alone Chronic abdominal pain Abdominal pain, unspecified site documented in this encounter [facility] note* Diagnosis Vomiting, unspecified vomiting type, unspecified whether nausea present- Primary Chronic nausea Nausea alone documented in this encounter [facility] note* Diagnosis Chronic abdominal pain- Primary Abdominal pain, unspecified site documented in this encounter [facility] note* Diagnosis SOB (shortness of breath)- Primary Shortness of breath Abdominal pain, unspecified abdominal location [facility]* Diagnosis Onset Date Resolution Status Acute hypokalemia acute Cannabis abuse acute Diabetes acute Intractable nausea and vomiting acute Diabetes acute Diabetic foot infection acut e Leukocytosis acute [facility] Work Phone: Evaluation note* Diagnosis Onset [...] right foot with fat layer exposed chronic [facility] Work Phone: Evaluation note* Diagnosis Onset Date Resolution Status Diabetic foot infection reso lved Gas gangrene resolved Leukocytosis resolved Non-pressure chronic ulcer o f other part of right foot with fat layer exposed resolved Tightness of right heel cord resolved [facility] Work Phone: Evaluation note* Diagnosis Pain of right eye- Primary Pain in or around eye [facility]* Diagnosis Onset Date Resolution [...] right foot with fat layer exposed resolved [facility] Work Phone: Evaluation note* Diagnosis Onset Date Resolution Status Acute painful diabetic polyneuropathy acute Other acute osteomyelitis, right ankle and foot acute Non-pressure chronic ulcer o f other part of right foot with fat layer exposed resolved [facility] Work Phone: Evaluation note* Diagnosis Nausea- Primary Nausea alone documented in this encounter [facility] note* Diagnosis Type II or unspecified type diabetes mellitus without mention of complication, uncontrolled- Primary Morbid obesity with BMI of 40.0-44.9, adult (HCC) Morbid obesity Elevated BP Elevated blood pressure reading without diagnosis of hypertension Acute cough Mild intermittent asthmatic bronchitis without complication documented in this encounter [facility] note* Diagnosis Type II or unspecified type diabetes mellitus without mention of complication, uncontrolled- Primary Morbid obesity with BMI of 40.0-44.9, adult (HCC) Morbid obesity Elevated BP Elevated blood pressure reading without diagnosis of hypertension Cough documented in this encounter [facility] note* Diagnosis Type II or unspecified type diabetes mellitus without mention of complication, uncontrolled- Primary Morbid obesity with BMI of 40.0-44.9, adult (HCC) Morbid obesity Elevated BP Elevated blood pressure reading without diagnosis of hypertension Bronchopneumonia- Primary Bronchopneumonia, organism unspecified Mild intermittent asthma, uncomplicated Unspecified asthma documented in this encounter [facility] note* Diagnosis Type II or unspecified type diabetes mellitus without mention of complication, uncontrolled- Primary Morbid obesity with BMI of 40.0-44.9, adult (HCC) Morbid obesity Elevated BP Elevated blood pressure reading without diagnosis of hypertension Acute cough- Primary Acute cough documented in this encounter [facility] note* Diagnosis Type II or unspecified type diabetes mellitus without mention of complication, uncontrolled- Primary Morbid obesity with BMI of 40.0-44.9, adult (HCC) Morbid obesity Elevated BP Elevated blood pressure reading without diagnosis of hypertension Acute cough documented in this encounter [facility] note* Diagnosis Onset Date Resolution Status Admit Date Acute proctitis acute November 25, 2024 1:38pm Colitis acute November 25, 2024 1:38pm Fecal impaction acute November 25, 2024 1:38pm [facility] Work Phone: History and physical note Author Dr. Urbina [facility] August 12, 2022 9:20pm Note Date/Time August 12, 2022 8 :09pm [facility] Medical Records Department [address] [place] [address] [place] [address] H&P Exam - Hospitalist 08/12/222008 MR#: [id number] Acct: [id number] Name: GHISLAINE GIVENS Rep #:[id number] : 1990 32 From: Valencia Urbina MD PCP: Dr. Sophy Gibbons Status:ADM IN Location: [facility] [id number] HPI - General General Date of Admission: 08/12/22 Date of Service: 08/12/22 Chief Complaint: Hyperglycemia, tachycardia HPI Narrative GHISLAINE GIVENS, is a 32 F who presents with the above. Patient has past medicalhistory of type II DM, recent discharge from the hospital on 06/29/22 for right diabetic foot infection status post right toe amputation. Patient was referred to the emergency room from [facility] for hyperglycemia and tachycardia. 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 [facility] Medical History (Updated 08/12/22 @ 21:20 [...] (docusate)) 100 mg PO BID PRN stool 09/26/22 [History Last Taken 06/24/22] metformin 500 mg [...] % (Auto) 69.8, Lymph % (Auto) 20.1, Young % (Auto) 8.7, Eos % (Auto) 0.1, [...] (MDRD) Non-Af 61, BUN/Creatinine Ratio 7.2 L, [id number] H, Calcium 9.6, Magnesium 1.6, Total Bilirubin 0.50, AST 20, ALT 13, Alkaline Phosphatase 136 H, Troponin I High Sens 6, Total Protein 9.2 H, Albumin2.9 L, Globulin 6.3 H, Albumin/Globulin Ratio 0.5 L 08/12/22 16:22: Acetone Level NEGATIVE 08/12/22 16:22: Urine Color Yellow, Urine Clarity Clear, Urine pH 6.0, Ur Specific [place] 1.010, Urine Protein 100 H, Urine Glucose [...] room physician. Charges/Coding Visit Charges Inpatient E&M: 70875 Init Hosp L2 08/12/222119 <Electronically signed by Valencia Urbina MD> Cosigner Signature (if applicable): CC: Dr. Valencia Urbina MD; Dr. Sophy Gibobns~ Signed [facility] Work Phone: History and physical note Author David Bain [facility] Note Date/Time December 30, 2024 1:09 pm [facility] Medical Records Department [address] [place] [address] H&P Exam - Hospitalist 12/30/24 1248 MR#: [id number] Acct: [id number] Name: GHISLAINE GIVENS Rep #:[id number] : 1990 34 From: David Gupta PCP: BROOKLYN Warren, BOAT HOIST OPERATOR-C Statu s:ADM IN Location: ICU CVICU20 [...] DKA therefore admitted. Vitals in normal limit. [facility] Medical History Diabetes GERD (gastroesophageal reflux [...] (Auto) 70.7 H, Lymph % (Auto) 23.6, Young % (Auto) 4.8, Eos % (Auto) 0.0, [...] Sl. Cloudy, Urine pH 5.0, Ur Specific [place] 1.025, Urine Protein 30 H, Urine Glucose [...] for 2 weeks. Weight loss counseling done. Stationary Engineer Refrigeration consult DVT prophylaxis, low risk: Early ambulation encouraged Living will/advanced directive/end of life care: Patient does not have living will or advanced directive. She does not have the [facility] power of prosecuting attorney for health. After discussion of benefits/risks procedures involved with full code,DNR CC arrest and DNR CC, the patient opted for full code. Patient does want artificial life support including intubation, tube feed, ventilator and/chest compression, central venous catheter, vasopressor and DC shock if needed Total time spent in [id number] encounter in discussion of advanced directive 17 minutes. Charges/Coding Visit Charges Inpatient E&M: 41941 Init Hosp L3 Procedures Hospitalists Procedures: 30498 Advncd Care Plan 30 Min 12/30/24 1309 <Electronically signed by David Bain MD> Cosigner Signature (if applicable): CC: C BOAT HOIST OPERATOR-C Amy Solorzano; Dr. David Bain MD~ Signed [facility] Work Phone: Hospital course Narrative No data available for this section [facility] Hospital Discharge instructions Additional Instructions Avoid marijuana use. Use the capsaicin cream every 6 hours as needed. Medication prescribed to use as needed. Continue oral fluids at home for hydration. Follow-up with your doctor.[facility] Work Phone: Hospital Discharge instructions Additional Instructions Please decrease your marijuana use. Please maintain hydration, use antinausea medicine as needed.[facility] Work Phone: Hospital Discharge instructions Additional Instructions Please fill the prescriptions that were prescribed to you from [facility] to help control your nausea and vomiting. Based on their CAT scan showing potential gallbladder or fallopian tube issues please have the ultrasounds obtained that were ordered on an outpatient basis this evening. If you have any further concerns [facility] Work Phone: Hospital Discharge instructions Additional Instructions Your CT scan showed inflammation of the rectum consistent with acute proctitis. This can be secondary to infection or just inflammation but because of your diabetes and elevation of your white count take the antibiotic to resolve an infectious cause. If you have any further concerns please return for [facility] Work Phone: Hospital Discharge instructions Additional Instructions I would recommend gentle massage of the tear duct. Warm compresses as discussed. I would highly encourage ophthalmologic follow-up. Monitor for worsening symptoms return if needed.[facility] Work Phone: Hospital Discharge instructions Additional [...] letting me be involved in your surgical care![facility] Work Phone: Hospital Discharge instructions Additional Instructions Continue to avoid marijuana use. Use medications as prescribed for your symptoms. Continue oral fluids for hydration. Follow-up with your GI team.[facility] Work Phone: Reason for referral (narrative)* Diagnostic Procedure Only (Routine) - New Request Specialty Diagnoses / Procedures Referred By Ubaldo whitaker Referred To Contact MOLECULAR & FUNCTIONAL IMAGING Diagnoses Nausea Procedures NM GASTRIC EMPTYING SOLID GASTRIC EMPTYING STUDY Almita Kelly PA-C [address] [place] [address] Molecular & Functional Imaging [address] [place] [address] Referral ID Status Reason Start Date Expiration Date Visits Requested Visits Authorized [id number] New Request Auto-Generat ed Referral 03/02/2023 03/31/2024 [facility]No reason for referral information availableWWayne [facility] Work Phone: Chief Complaint and Reason for [...] INFECTION DIABETIC FOOT INFECTION DIABETIC FOOT INFECTION LONG TERM LABWORK Reason for Visit Abdominal pain Encounter [...] INFECTION DIABETIC FOOT INFECTION DIABETIC FOOT INFECTION LONG TERM LABWORK LONG TERM LAB WORK Reason for Visit Abdominal pain [...] INFECTION DIABETIC FOOT INFECTION DIABETIC FOOT INFECTION LONG TERM LABWORK LONG TERM LAB WORK LONG TERM LABWORK CMP/CBC Reason for Visit Abdominal pain [...] INFECTION DIABETIC FOOT INFECTION DIABETIC FOOT INFECTION LONG TERM LABWORK LONG TERM LAB WORK LONG TERM LABWORK CMP/CBC DIABETIC FOOT ULCER Reason for [...] INFECTION DIABETIC FOOT INFECTION DIABETIC FOOT INFECTION LONG TERM LABWORK LONG TERM LAB WORK LONG TERM LABWORK CMP/CBC DIABETIC FOOT ULCER Reason for [...] INFECTION DIABETIC FOOT INFECTION DIABETIC FOOT INFECTION LONG TERM LABWORK LONG TERM LAB WORK LONG TERM LABWORK CMP/CBC DIABETIC FOOT ULCER DIAULCER DIAULCER [...] diabetes mellitus with foot ulcer Chief Complaint LONG TERM LABWORK CMP/CBC DIABETIC FOOT ULCER DIAULCER DIAULCER DIAULCER DIAULCER DIAULCER ACUTE PYELONEPHRITIS ACUTE PYELONEPHRITIS Reason for Visit Cellulitis and absce ss of right lower extremity Cellulitis of foot, right Diabetic foot infection Osteomyelitis Lactic acidosis Acute pyelonephritis Chief Complaint LONG TERM LABWORK CMP/CBC DIABETIC FOOT ULCER DIAULCER DIAULCER [...] MEDICAL NONCOMPLIA NCE January 01, 2025 1:06pm n/v January 02, 2025 6:56 am Advance Directives No Advanced Directives Records Found Advance Directive Response Recorded Date/ Time Living Will No October 24, 2021 8:30am Power of Regional Education Coordinator No October 24 8:30am Advance Directive Response Recorded Date/ Time Living Will No October 29, 2021 9:39am Power of Regional Education Coordinator No October 29 9:39am Advance Directive Response Recorded Date/ Time Living Will No November 16, 2021 8: 50am Power of Regional Education Coordinator No November 16, 2021 8:50am Advance Directive Response Recorded Date/ Time Living Will No January 16, 2022 2 :46pm Power of Regional Education Coordinator No January 16, 2022 2:46pm Advance Directive Response Recorded Date/ Time Living Will No January 22, 2022 9:41pm Power of Regional Education Coordinator No January 22 9:41pm Advance Directive Response Recorded Date/ Time Living Will No January 23, 2022 4:29pm Power of Regional Education Coordinator No January 23 4:29pm Advance Directive Response Recorded Date/ Time Living Will No January 26, 2022 12:34pm Power of Regional Education Coordinator No January 26 12:34pm Advance Directive Response Recorded Date/ Time Living Will No February 01, 2022 1:07pm Power of Regional Education Coordinator No February 01 1:07pm Advance Directive Response Recorded Date/ Time Living Will No April 05, 2022 11:53am Power of Regional Education Coordinator No March 11:53am Advance Directive Response Recorded Date/ Time Living Will No April 06, 2022 12:58pm Power of Regional Education Coordinator No March 12:58pm Advance Directive Response Recorded Date/ Time Living Will No April 06, 2022 4:07pm Power of Regional Education Coordinator No March 4:07pm Advance Directive Response Recorded Date/ Time Living Will No June 24 3:40pm Power of Regional Education Coordinator No June 24, 2022 3:40pm Advance Directive Response Recorded Date/ Time Living Will No August 12 5:35pm Power of Regional Education Coordinator No August 12, 2022 5:35pm Advance Directive Response Recorded Date/ Time Living Will No August 12 10:55pm Power of Regional Education Coordinator No August 12, 2022 10:55pm Advance Directive Response Recorded Date/ Time Living Will No January 07, 2023 8:51am Power of Regional Education Coordinator No January 07 8:51am Advance Directive Response Recorded Date/ Time Living Will No January 09, 2023 1 2:00pm Power of Regional Education Coordinator No January 09, 2023 12:00pm Advance Directive Response Recorded Date/ Time Living Will No January 12, 2023 1 2:39am Power of Regional Education Coordinator No January 12, 2023 12:39am Advance Directive Response Recorded Date/ Time Living Will No January 12, 2023 1 2:53pm Power of Regional Education Coordinator No January 12, 2023 12:53pm Advance Directive Response Recorded Date/ Time Living Will No January 14, 2023 4 :21pm Power of Regional Education Coordinator No January 14, 2023 4:21pm Advance Directive Response Recorded Date/ Time Living Will No January 25, 2023 11:41am Power of Regional Education Coordinator No January 25 11:41am Advance Directive Response Recorded Date/ Time Living Will No February 08, 2023 12:35pm Power of Regional Education Coordinator No February 08 12:35pm Latest Code Status on File Code Status Date Activated Date Inactivated Comments Full Code 02/18/2023 1:58 AM 02/20/2023 4:13 PM Question Answer Comments Full Code Order Discussed With: Patient Advance Directive Response Recorded Date/ Time Living Will No February 26 12:10am Power of Regional Education Coordinator No February 26, 2 023 12:10am Latest [...] Will No March 06 8:38am Power of Regional Education Coordinator No March 06 023 8:38am Latest Code Status on File [...] Will No May 04 12:14pm Power of Regional Education Coordinator No May 04, 2023 12:14pm Advance Directive Response Recorded Date/ Time Living Will No May 04 6:42pm Power of Regional Education Coordinator No May 04, 2023 6:42pm Advance Directive Response Recorded Date/ Time Living Will No May 04 5:42pm Power of Regional Education Coordinator No May 04, 2023 5:42pm Advance Directive Response Recorded Date/ Time Living Will No June 28 023 9:27am Power of Regional Education Coordinator No June 28, 2023 9:27am Advance Directive Response Recorded Date/ Time Living Will No July 02 023 9:33am Power of Regional Education Coordinator No July 02, 2023 9:33am Advance Directive Response Recorded Date/ Time Living Will No July 16 9:15am Power of Regional Education Coordinator No July 16 024 9:15am Advance Directive Response Recorded Date/ Time Living Will No July 16 10:15am Power of Regional Education Coordinator No July 16 024 10:15am Date Activated Date Inactivated Comments [...] Date/ Time Living Will No June 25, 2 023 9:33am Power of Regional Education Coordinator No June 25, 2023 9:33am Advance Directive Response Recorded Date/ Time Living Will No June 26, 2 023 12:21pm Power of Regional Education Coordinator No June 26, 2023 12:21pm Advance Directive Response Recorded Date/ Time Living Will No June 27 2 023 5:53am Power of Regional Education Coordinator No June 27, 2023 5:53am Advance Directive Response Recorded Date/ Time Do you have a Healthcare Power of Regional Education Coordinator? No November 25, 2024 8:56am Advance Directive Response Recorded Date/ Time Do you have a Healthcare Power of Regional Education Coordinator? No November 25, 2024 2:54pm Advance Directive Response Recorded Date/ Time Do you have a Healthcare Power of Regional Education Coordinator? No November 25, 2024 2:54pm Do you have a Healthcare Power of Regional Education Coordinator? No December 30, 2024 10:23am Advance Directive Response Recorded Date/ Time Do you have a Healthcare Power of Regional Education Coordinator? No November 25, 2024 2:54pm Do you have a Healthcare Power of Regional Education Coordinator? No December 30, 2024 1:37pm Advance Directive Response Recorded Date/ Time Do you have a Healthcare Power of Regional Education Coordinator? No November 25, 2024 2:54pm Do you have a Healthcare Power of Regional Education Coordinator? No December 30, 2024 1:37pm Do you have a Healthcare Power of Regional Education Coordinator? No December 31, 2024 7:36pm Advance Directive Response Recorded Date/ Time Do you have a Healthcare Power of Regional Education Coordinator? No November 25, 2024 2:54pm Do you have a Healthcare Power of Regional Education Coordinator? No December 30, 2024 1:37pm Do you have a Healthcare Power of Regional Education Coordinator? No December 31, 2024 11:46pm Advance Directive Response Recorded Date/ Time Do you have a Healthcare Power of Regional Education Coordinator? No November 25, 2024 2:54pm Do you have a Healthcare Power of Regional Education Coordinator? No December 30, 2024 1:37pm Do you have a Healthcare Power of Regional Education Coordinator? No December 31, 2024 11:46pm Do you have a Healthcare Power of Regional Education Coordinator? No January 02, 2025 6:59am Family History No Family History Records Found [...] scan Procedures CONSULT TO PULM/CRITICAL CARE OFFICE/OUTPATIENT [facility] 60-74 MINUTES Alyssa Jaime APRN.[employer] [address] [place] [address] Referral ID Status Reason Start Date Expiration Date Visits Requested Visits Authorized [id number] Authorized PCP Requested Referral 02/02/2022 02/02/2023 1 1 Specialty Diagnoses / Procedures Referred By Contac t Referred To Contact Pain Management Diagnoses Chronic abdominal pain Procedures CONSULT TO PAIN MGT OFFICE/OUTPATIENT [facility] 60-74 MINUTES Pilar Magdaleno APRN.[employer] [address] [place] [address] Referral ID Status Reason Start Date Expiration Date Visits Requested Visits Authorized [id number] Authorized PCP Requested Referral 02/23/2023 02/23/2024 1 1 Specialty Diagnoses / Procedures Referred By Contac t Referred To Contact Gastroenterology Diagnoses Chronic nausea Procedures CONSULT TO GASTROENTEROLOGY OFFICE/OUTPATIENT [facility] 60-74 MINUTES Pilar Magdaleno APRN.[employer] [address] [place] [address] Referral ID Status Reason Start Date Expiration Date Visits Requested Visits Authorized [id number] Authorized PCP Requested Referral 02/23/2023 02/23/2024 1 1 Referral ID Status Reason Start Date Expiration Date Visits Requested Visits Authorized [id number] Authorized PCP Requested Referral 03/12/2023 03/11/2024 1 [...] or prosecute any alcohol or drug abuse patient.[facility] the event this information is protected by the Federal Confidentiality of Alcohol and Drug Abuse Patient Records regulations: The Federal rules restrict any use of the information to criminally investigate or prosecute any alcohol or drug abuse patient.[facility] HospitalIn the event this information is protected by the Federal Confidentiality of Alcohol and Drug Abuse Patient Records regulations: The Federal rules restrict any use of the information to criminally investigate or prosecute any alcohol or drug abuse patient.[facility] the event this information is protected by the Federal Confidentiality of Alcohol and Drug Abuse Patient Records regulations: The Federal rules restrict any use of the information to criminally investigate or prosecute any alcohol or drug abuse patient.[facility] HospitalIn the event this information is protected by the Federal Confidentiality of Alcohol and Drug Abuse Patient Records regulations: The Federal rules restrict any use of the information to criminally investigate or prosecute any alcohol or drug abuse patient.[facility] HospitalIn the event this information is protected by the Federal Confidentiality of Alcohol and Drug Abuse Patient Records regulations: The Federal rules restrict any use of the information to criminally investigate or prosecute any alcohol or drug abuse patient.[facility] HospitalIn the event this information is protected by the Federal Confidentiality of Alcohol and Drug Abuse Patient Records regulations: The Federal rules restrict any use of the information to criminally investigate or prosecute any alcohol or drug abuse patient.[facility] HospitalIn the event this information is protected by the Federal Confidentiality of Alcohol and Drug Abuse Patient Records regulations: The Federal rules restrict any use of the information to criminally investigate or prosecute any alcohol or drug abuse patient.[facility] HospitalIn the event this information is protected by the Federal Confidentiality of Alcohol and Drug Abuse Patient Records regulations: The Federal rules restrict any use of the information to criminally investigate or prosecute any alcohol or drug abuse patient.[facility] HospitalIn the event this information is protected by the Federal Confidentiality of Alcohol and Drug Abuse Patient Records regulations: The Federal rules restrict any use of the information to criminally investigate or prosecute any alcohol or drug abuse patient.[facility] HospitalIn the event this information is protected by the Federal Confidentiality of Alcohol and Drug Abuse Patient Records regulations: The Federal rules restrict any use of the information to criminally investigate or prosecute any alcohol or drug abuse patient.[facility] HospitalIn the event this information is protected by the Federal Confidentiality of Alcohol and Drug Abuse Patient Records regulations: The Federal rules restrict any use of the information to criminally investigate or prosecute any alcohol or drug abuse patient.[facility] HospitalIn the event this information is protected by the Federal Confidentiality of Alcohol and Drug Abuse Patient Records regulations: The Federal rules restrict any use of the information to criminally investigate or prosecute any alcohol or drug abuse patient.[facility] HospitalIn the event this information is protected by the Federal Confidentiality of Alcohol and Drug Abuse Patient Records regulations: The Federal rules restrict any use of the information to criminally investigate or prosecute any alcohol or drug abuse patient.[facility] HospitalIn the event this information is protected by the Federal Confidentiality of Alcohol and Drug Abuse Patient Records regulations: The Federal rules restrict any use of the information to criminally investigate or prosecute any alcohol or drug abuse patient.[facility] HospitalIn the event this information is protected by the Federal Confidentiality of Alcohol and Drug Abuse Patient Records regulations: The Federal rules restrict any use of the information to criminally investigate or prosecute any alcohol or drug abuse patient.[facility] HospitalIn the event this information is protected by the Federal Confidentiality of Alcohol and Drug Abuse Patient Records regulations: The Federal rules restrict any use of the information to criminally investigate or prosecute any alcohol or drug abuse patient.[facility] HospitalIn the event this information is protected by the Federal Confidentiality of Alcohol and Drug Abuse Patient Records regulations: The Federal rules restrict any use of the information to criminally investigate or prosecute any alcohol or drug abuse patient.[facility] HospitalIn the event this information is protected by the Federal Confidentiality of Alcohol and Drug Abuse Patient Records regulations: The Federal rules restrict any use of the information to criminally investigate or prosecute any alcohol or drug abuse patient.[facility] HospitalIn the event this information is protected by the Federal Confidentiality of Alcohol and Drug Abuse Patient Records regulations: The Federal rules restrict any use of the information to criminally investigate or prosecute any alcohol or drug abuse patient.[facility] HospitalIn the event this information is protected by the Federal Confidentiality of Alcohol and Drug Abuse Patient Records regulations: The Federal rules restrict any use of the information to criminally investigate or prosecute any alcohol or drug abuse patient.[facility] Reason for Visit (unrecogniz ed section [...] Procedures CONSULT TO GASTROENTEROLOGY OFFICE/OUTPATIENT [facility] 60-74 MINUTES Pilar Magdaleno APRN.[employer] [address] [place] [address] Referral ID Status Reason Start Date Expiration Date V isits Requested Visits Authorized [id number] Closed PCP Requested Referral 02/23/2023 02/23/2024 1 [...] MD Other Provider Active Dr. Gale Lr , Attending Provider, Other Provide r Active Team [...] Dr. Lexus Villatoro MD Attending Provider Active Mechanical [employer] Relationship Specialty Start Date End Date Amy Solorzano, MARIA G [address] [place], [place] [id number] PCP - General Family Medicine 11/17/22 Team Status: Active Member Role Status Dates Dr. Esther Cooney MD Family Provider Active [facility] Primary Care Provider A ctive Team Status: Inactive Member Role Status Dates Dr. Sophy Gibbons Primary Care Provider Active Dr. Tim Vidal DO Attending Provider, Emergency P tala Active Team Status: Active Member Role Status Dates [facility] Primary Care Provider A ctive Amy Solorzano BOAT HOIST OPERATOR, BOAT HOIST OPERATOR-C Attending Provider, Referrin g Provider Active Team Status: Inactive Member Role Status Dates [facility] Primary Care Provider A ctive Dr. Poli Le , DO Emergency Provider Active Team Status: Inactive Member Role Status Dates [facility] Primary Care Provider A ctive Dr. Deann Guerrero MD Emergency Provider Active Team Status: Inactive Member Role Status Dates [facility] Primary Care Provider A ctive Dr. Perico Norman , DO Emergency Provider Active Team Status: Inactive Member Role Status Dates [facility] Primary Care Provider A ctive Dr. Fabricio Guevara MD Emergency Provider Active Team Status: Active Member Role Status Dates [facility] Primary Care Provider A ctive Dr. Willie Dhillon MD Emergency Provider Active Dr. Lexus Villatoro MD Admit Provider, At tending Provider, Other Provider Active Team Status: Inactive Member Role Status Dates [facility] Primary Care Provider A ctive Dr. Willie Dhillon MD Emergency Provider Active Dr. Lexus Villatoro MD Admit Provider, Attending Provid er Active Team Status: Inactive Member Role Status Dates [facility] Primary Care Provider A ctive Dr. Poli Barfield DO Attending Provider, Emergency Provide r Active Team Status: Inactive Member Role Status Dates [facility] Primary Care Provider A ctive Dr. Deann Guerrero MD Attending Provider, Emergency Provider Active Team Status: Inactive Member Role Status [facility] Primary Care Provider A ctive Amy Solorzano BOAT HOIST OPERATOR, BOAT HOIST OPERATOR-C Attending Provider, Referrin g Provider Active Team Status: Inactive Member Role Status [facility] Primary Care Provider A ctive Dr. Perico Norman , DO Attending Provider, Emergency Pr ovider Active Team Status: Inactive Member Role Status [facility] Primary Care Provider A ctive Dr. Fabricio Guevara MD Attending Provider, Emergency Pro vider Active [employer] Relationship Specialty Start Date End Date Amy Solorzano [address] [place] [phone] PCP - General 01/24/23 Mechanical Cad Drafter Relationship Specialty Start Date End Date Amy Solorzano NP [address] [place] [address] PCP - General Family Medicine 11/17/22 Team Status: Inactive Member Role Status Dates [facility] Primary Care Provider A ctive Dr. Javy Doss , DO Emergency Provider Active [employer] Relationship Specialty Start Date End Date Amy Solorzano, BOAT HOIST OPERATOR [address] [place] [address] PCP - General Family Medicine 11/17/22 Team Status: Inactive Member Role Status Dates [facility] Primary Care Provider A ctive Dr. Javy Doss , DO Attending Provider, Emergency Pro vider Active Team Status: Inactive Member Role Status Dates [facility] Primary Care Provider A ctive Dr. Tim Vidal , DO Emergency Provider Active Mechanical Cad Drafter Relationship Specialty Start Date End Date Amy Solorzano BOAT HOIST OPERATOR [address] [place] [address] PCP - General Family Medicine 11/17/22 Mechanical Cad Drafter Relationship Specialty Start Date End Date Amy Solorzano BOAT HOIST OPERATOR [address] [place] [address] PCP - General Family Medicine 11/17/22 Team Status: Inactive Member Role Status Dates [facility] Primary Care Provider A ctive Dr. Tim Vidal , DO Attending Provider, Emergency P rovider Active Team Status: Inactive Member Role Status Dates [facility] Primary Care Provider A ctive Dr. Rickey Shepard , DO Emergency Provider Active Mechanical Cad Drafter Relationship Specialty Start Date End Date Amy Solorzano, BOAT HOIST OPERATOR [address] [place] [address] PCP - General Family Medicine 11/17/22 Mechanical Cad Drafter Relationship Specialty Start Date End Date Amy Solorzano NP [address] [place] [address] PCP - General Family Medicine 11/17/22 Mechanical Cad Drafter Relationship Specialty Start Date End Date Amy Solorzano BOAT HOIST OPERATOR [address] [place] [address] PCP - General Family Medicine 11/17/22 Mechanical Cad Drafter Relationship Specialty Start Date End Date Amy Solorzano BOAT HOIST OPERATOR [address] [place] [address] PCP - General Family Medicine 11/17/22 Team [...] Team Status: Inactive Member Role Status Dates [facility] Primary Care Provider A ctive Dr. Rickey Shepard , DO Attending Provider, Emergency P tala Active Team Status: Inactive Member Role Status [...] Dr. Alex Christiansen DO Emergency Provider Active Mechanical [employer] Drafter Relationship Specialty Start Date End Date Amy Solorzano NP [address] [place] [id number] PCP - General Family Medicine 11/17/22 Team [...] Dr. Tesfaye Mitchell DO Emergency Provider Active [facility] Primary Care Provider A ctive Team Status: Inactive Member Role Status Dates Dr. Abdirizak Forrest DPM Attending Provider, Referring Provider Active [facility] Primary Care Provider A ctive Team Status: Inactive Member Role Status Dates Dr. Sophy Gibbons Primary Care Provider Active Drew Hinson MD Attending Provider, Emergency Provid er Active Team Status: Inactive Member Role Status Dates Dr. Tesfaye Mitchell DO Attending Provider, Emergency P rovider Active [facility] Primary Care Provider A ctive Team Status: Inactive Member Role Status Dates [facility] Primary Care Provider A ctive Dr. Willie Dhillon MD Attending Provider, Emergency Provider Active Team Status: Inactive Member Role Status Dates [facility] Primary Care Provider A ctive Dr. Abdirizak Forrest DPM Attending Provider, Referring Provider Active Mechanical Cad Drafter Relationship Specialty Start Date End Date Amy Solorzano BOAT HOIST OPERATOR [address] [facility] [place] [phone] PCP - General Family Medicine 11/17/22 Mechanical Cad Drafter Relationship Specialty Start Date End Date Amy Solorzano BOAT HOIST OPERATOR [address] [facility] [place] [phone] PCP - General Family Medicine 11/17/22 Mechanical Cad Drafter Relationship Specialty Start Date End Date Amy Solorzano, BOAT HOIST OPERATOR [address] [facility] [place] [phone] PCP - General Family Medicine 11/17/22 Mechanical Cad Drafter Relationship Specialty Start Date End Date Aym Solorzano, BOAT HOIST OPERATOR [address] [facility] [place] [phone] PCP - General Family Medicine 11/17/22 Team Status: Active Member Role Status Dates Amy Solorzano VSC, BOAT HOIST OPERATOR-C Primary Care Provider Activ e Team Status: Inactive Member Role Status Dates Amy Solorzano VSC, BOAT HOIST OPERATOR-C Primary Care Provider Activ e Start: October 17, 2024 End: October 17, 2024 Amy EDWARDSC, BOAT HOIST OPERATOR-C Attending Provider Active Start: October 17, 2024 End: October 17, 2024 Team Status: Inactive Member Role Status Dates Amy Solorzano VSC, BOAT HOIST OPERATOR-C Primary Care Provider Activ e Start: October 25, 2024 End: October 25, 2024 Dr. Abdirizak Forrest DPM Attending Provider Active Start: October 25, 2024 End: October 25, 2024 Dr. Abdirizak Forrest DPM Referring Provider Active Start: October 25, 2024 End: October 25, 2024 Team Status: Active Member Role Status Dates Amy BARAHONA, BOAT HOIST OPERATOR-C Primary Care Provider Activ e Start: November 25, 2024 Drew Hnison MD Emergency Provider Active Star t: November 25, 2024 Dr. Brenda Rao MD Admit Provider Active St art: November 25, 2024 Dr. Brenda Rao MD Attending Provider Active Start: November 25, 2024 Team Status: Inactive Member Role Status Dates Amy BARAHONA, BOAT HOIST OPERATOR-C Primary Care Provider Activ e Start: [...] Active Member Role Status Dates Amy BARAHONA, BOAT HOIST OPERATOR-C Primary Care Provider Activ e Start: [...] Active Member Role Status Dates Amy BARAHONA, BOAT HOIST OPERATOR-C Primary Care Provider Activ e Start: [...] Active Member Role Status Dates Amy BARAHONA, BOAT HOIST OPERATOR-C Primary Care Provider Activ e Start: November 26, 2024 Drew Hinson MD Emergency Provider Active Star t: November 26, 2024 Dr. Brenda Rao MD Admit Provider Active St art: November 26, 2024 Dr. Brneda Rao MD Attending Provider Active Start: November 26, 2024 Dr. Brenda Rao MD Other Provider Active St art: November 26, 2024 Dr. Annalise Welch MD Other Provider Active S tart: November 26, 2024 Team Status: Active Member Role Status Dates Amy BARAHONA, BOAT HOIST OPERATOR-C Primary Care Provider Activ e Start: [...] Active Member Role Status Dates Amy BARAHONA, BOAT HOIST OPERATOR-C Primary Care Provider Activ e Start: [...] Active Member Role Status Dates Amy BARAHONA, BOAT HOIST OPERATOR-C Primary Care Provider Activ e Start: [...] Active Member Role Status Dates Amy BARAHONA, BOAT HOIST OPERATOR-C Primary Care Provider Activ e Start: [...] Active Member Role Status Dates Amy BARAHONA, BOAT HOIST OPERATOR-C Primary Care Provider Activ e Start: [...] Inactive Member Role Status Dates Amy BARAHONA, BOAT HOIST OPERATOR-C Primary Care Provider Activ e Start: December 13, 2024 End: December 13, 2024 Amy EDWARDSC, BOAT HOIST OPERATOR-C Referring Provider Active Start: December 13, 2024 End: December 13, 2024 MIGUEL A South Attending Provider Active Start: December 13, 2024 End: December 13, 2024 Team Status: Inactive Member Role Status Dates Amy EDWARDSC, BOAT HOIST OPERATOR-C Primary Care Provider Activ e Start: December 13, 2024 End: December 13, 2024 MIGUEL A South Attending Provider Active Start: December 13, 2024 End: December 13, 2024 MIGUEL A [place] Referring Provider Active Start: December 13, 2024 End: December 13, 2024 Team Status: Inactive Member Role Status Dates Amy EDWARDSC, BOAT HOIST OPERATOR-C Primary Care Provider Activ e Start: December 25, 2024 End: December 25, 2024 MIGUEL A South Attending Provider Active Start: December 25, 2024 End: December 25, 2024 Kalee Peter Referring Provider Active Start: December 25, 2024 End: December 25, 2024 Team Status: Active Member Role Status Dates Amy EDWARDSC, BOAT HOIST OPERATOR-C Primary Care Provider Activ e Start: December 30, 2024 Dr. Poli Barfield DO Emergency Provider Active Start : December 30, 2024 Dr. David Bain MD Admit Provider Active Sta rt: December 30, 2024 Dr. David Bain MD Attending Provider Active Start: December 30, 2024 Team Status: Inactive Member Role Status Dates Amy EDWARDSC, BOAT HOIST OPERATOR-C Primary Care Provider Activ e Start: [...] Active Member Role Status Dates Amy EDWARDSC, BOAT HOIST OPERATOR-C Primary Care Provider Activ e Start: [...] Active Member Role Status Dates Amy EDWARDSC, BOAT HOIST OPERATOR-C Primary Care Provider Activ e Start: December 31, 2024 Dr. Poli Barfield , DO Emergency Provider Active Start : December 31, 2024 Dr. David Bain MD Admit Provider Active Sta rt: December 31, 2024 Dr. David Bain MD Attending Provider Active Start: December 31, 2024 Dr. David Bain MD Other Provider Active Sta rt: December 31, 2024 Team Status: Active Member Role Status Dates Amy EDWARDSC, BOAT HOIST OPERATOR-C Primary Care Provider Activ e Start: December 31, 2024 Dr. Poli Barfield , Emergency Provider Active Start : December 31, 2024 Dr. Dewayne Grant , DO Admit Provider Active Start: December 31, 2024 Dr. Dewayne Grant , Attending Provider Active Start: December 31, 2024 Team Status: Inactive Member Role Status Dates Amy EDWARDSC, BOAT HOIST OPERATOR-C Primary Care Provider Activ e Start: December 31, 2024 End: January 01, 2025 Dr. Poli Barfield , Emergency Provider Active Start : December 31, 2024 End: January 01, 2025 Dr. Dewayne Grant , Admit Provider Active Start: December 31, 2024 End: January 01, 2025 Dr. Dewayne Grant , Other Provider Active Start: December 31, 2024 End: January 01, 2025 Dr. Frantz Coulter , Attending Provider Active Start: December 31, 2024 End: January 01, 2025 Team Status: Active Member Role Status Dates Amy EDWARDSC, BOAT HOIST OPERATOR-C Primary Care Provider Activ e Start: [...] Provider Active S tart: January 01, 2025 Team Status: Inactive Member Role Status Dates Amy BARAHONA, BOAT HOIST OPERATOR-C Primary Care Provider Activ e Start: January 02, 2025 End: January 02, 2025 Dr. Poli Barfield , Emergency Provider Active Start : January 02, 2025 End: January 02, 2025 INFORMATION SOURCE (unrecogn ized section and content) DATE CREATED AUTHOR 01/24/2023 [facility] DATE CREATED AUTHOR AUTHOR'S ORGANIZ ATION 02/18/2023 [facility] DATE CREATED AUTHOR AUTHOR'S ORGANIZ ATION 04/19/2023 [facility] ([place]) DATE CREATED AUTHOR AUTHOR'S ORGANIZ ATION 02/02/2024 [facility] DATE CREATED AUTHOR AUTHOR'S ORGANIZ ATION 07/05/2024 [facility] DATE CREATED AUTHOR AUTHOR'S ORGANIZ ATION 01/03/2025 [facility] Scheduled Active and Recently Administ ered [...] 1 dose 1054 (Given - Provid er: Taimca Penaloza RN) diphenhydrAMINE (BENADryl) injection 25 mg [...] BE BASED ON THE PRIMARY CLINICAL RECORDS. [employer] provides no warranty or guarantee of the accuracy or completeness of information in this document.
--- NOTE | 2025-01-04 07:05 | EDS_ITS ---
HPI <Dr. Perico Norman DO - Last Filed: 01/06/25 22:39> History of Present Illness Chief Complaint: Nausea/Vomiting Informant: patient and EMS Narrative Narrative: Patient is a 34-year-old female with past med history of insulin-dependent type 2 diabetes anxiety and depression. She reports she has been vomiting for the last month. She has been seen in the ER and at 1 point was admitted secondary to DKA and signed out AGAINST MEDICAL ADVICE. She states she is also on Trulicity and the dose has also been increased but she states she has not been using it recently secondary to her bouts of nausea vomiting. She states that she cannot keep any food or fluid down and she has significant abdominal pain associated with this. She states has been 30 days or more since her last marijuana use as well. However because of her persistent pain and associated nausea and vomiting EMS was called and she was brought in for evaluation. [facility] <Dr. Perico Norman DO - Last Filed: 01/06/25 22:39> [facility] Medical History Borderline personality disorder Depression with anxiety Obesity (BMI 30-39.9) Medical non-compliance Cyclic vomiting syndrome Diabetic ketoacidosis Cannabis abuse Type 2 diabetes mellitus with peripheral neuropathy Diabetes GERD (gastroesophageal reflux disease) Wears glasses History of MRSA infection Borderline personality disorder Alcohol use Insulin dependent diabetes mellitus Dietary restriction Heartburn Smoker Shortness of breath on exertion Leg cramps Neuropathy, diabetic Elevated serum creatinine Failure of outpatient treatment Nausea and vomiting Diabetes mellitus with diabetic polyneuropathy Type 2 diabetes mellitus with foot ulcer Anxiety Depression Constipation Asthma Diabetes Home Medications ?Medication ?Instructions ?Recorded ?Last Taken ?Type insulin glargine 100 unit/mL (3 20 unit subcut BID doreen betes 08/12/22 12/29/24 History mL) subcutaneous pen (Lantus Solostar U-100 Insulin) albuterol sulfate 90 mcg/actuation 2 puff inhalation Q 4H PRN 11/25/24 Unknown History aerosol inhaler shortness of breath or wheez ing dulaglutide 4.5 mg/0.5 mL 4.5 mg subcut SA diabetes 11/18/24 History subcutaneous pen injector (Trulicity) linaclotide 145 mcg capsule 145 mcg PO QAM IBS #30 cap s 12/13/24 12/29/24 Rx (Linzess) promethazine 25 mg tablet 25 mg PO Q6H PRN nausea and 01/01/25 Unknown Rx vomiting #25 tabs hyoscyamine sulfate 0.125 mg 0.125 mg sublingual Q8H P RN 01/02/25 Unknown Rx sublingual tablet (Levsin/SL) abdominal discomfort #10 tabs ondansetron 4 mg disintegrating 4 mg PO Q8H PRN PRN Na usea #10 tabs 01/02/25 Unknown Rx tablet scopolamine base 1 mg over 3 days 1 patch transdermal Q3D PRN nausea 01/04/25 Unknown Rx transdermal patch and vomiting #4 ea Allergy/AdvReac Type Severity Reaction Status Date / Time No Known Allergies Allergy Verified 01/04/25 05:56 Family History Other Bleeding disorder Cancer Diabetes Hypertension Surgical History Hx of foot surgery Hx of foot surgery Social History Smoking Status: Former smoker alcohol intake: never substance use type: does not use what type of physical activity do you participate in: none ROS <Dr. Perico Norman, DO - Last Filed: 01/06/25 22:39> ROS ED Constitutional Constitutional ED: Denies chills or fever(s) ENT ENT ED: Denies sore throat Cardiovascular Cardiovascular: Denies chest pain Respiratory/Chest Respiratory/Chest: Denies cough or dyspnea Gastrointestinal Gastrointestinal: Reports abdominal pain, nausea and vomiting; Denies diarrhea Genitourinary Genitourinary ED: Denies dysuria Musculoskeletal Musculoskeletal: Denies myalgias Integumentary Denies rash Neurologic Neurologic: Reports weakness; Denies headache(s) Psychiatric Psychiatric: Reports anxiety Hematologic/Lymphatic Hematologic/Lymphatic: Denies easy bleeding or easy bruising EXAM <Dr. Perico Norman, DO - Last Filed: 01/06/25 22:39> Physical Exam Const Vital Signs: 01/04/25 05:55 01/04/25 08:10 01/04/25 10:00 Temperature 98.5 F Temperature Source Oral Pulse Rate 95 73 Respiratory Rate 18 13 Blood Pressure 163/97 H 122/70 H 147/81 H Blood Pressure Mean 119 87 103 Pulse Ox 99 97 Oxygen Delivery Method Room Air Positive well nourished, well developed and obese General Appearance ED: well developed; Negative for pallor Nutritional Appearance: obese HEENT Reports dry mucous membranes HEENT Narrative: Normocephalic atraumatic No tongue or lip swelling no oral lesions no airway edema or compromise No secondary findings in posterior pharynx to suggest infection Mucous membranes are dry and tacky Mouth ED: Yes dry mucous membranes Mouth: dry mucous membranes Eyes PERRL and EOMs intact bilaterally General Eye ED: Negative for scleral icterus Neck supple Neck Narrative: No nuchal rigidity or meningeal signs Resp normal respiratory effort and clear to auscultation bilaterally Cardio regular rate and regular rhythm Rate: other Other Details: Radial and carotid pulses are equal and symmetric GI non-distended and no masses GI Narrative: Abdomen is soft and nondistended with hypoactive bowel sounds. There is mild diffuse pain on palpation without voluntary guarding or rigidity. No pulsatile mass or fluid wave. No increased tympany. No peritoneal signs Auscultation: hypoactive bowel sounds Palpation: soft Extremity Extremity Narrative: Partial amputation of the left foot secondary to history of osteomyelitis Otherwise extremity exam is normal Neuro oriented x3, CN's II-XII intact bilaterally and no sensory deficits noted Sensorium / Orientation: alert Motor Exam: strength 5/5 throughout Psych Psych Narrative: Patient has a anxious/agitated affect Skin no rashes or lesions noted Skin Narrative: Skin turgor is increased consistent with dehydration General Skin Exam: Negative for jaundice or pallor <Dr. Poli Barfield, DO - Last Filed: 01/04/25 11:19> Physical Exam Const Vital Signs: 01/04/25 05:55 01/04/25 08:10 01/04/25 10:00 Temperature 98.5 F Temperature Source Oral Pulse Rate 95 73 Respiratory Rate 18 13 Blood Pressure 163/97 H 122/70 H 147/81 H Blood Pressure Mean 119 87 103 Pulse Ox 99 97 Oxygen Delivery Method Room Air MDM <Dr. Perico Norman, DO - Last Filed: 01/06/25 22:39> MDM MDM Narrative Medical decision making narrative: Patient arrived to ER hypertensive but otherwise with stable vitals. She has a longstanding history of recurrent nausea and vomiting. She states has been over 1 month since her last marijuana use which would go against cannabis hyperemesis syndrome as the cause of her nausea and vomiting. Trulicity could be the cause as well but she states she has not been taking it. Based on her history of diabetes that has also led to admission for DKA there is concern that she has developed gastroparesis. Patient could also have acute kidney injury or clinically significant electrolyte abnormality or complication as a cause of her recurrent symptoms. Basic blood work was obtained and shows leukocytosis but I feel this is most likely stress response and otherwise labs revealed no clinically significant findings such as significant hypokalemia acute kidney injury or lactic acidosis. Her beta high beta hydroxybutyrate level is elevated at 2.1 and her carbon dioxide is low at 17 with a bump to her anion gap but this is most likely starvation ketosis as VBG shows a pH of 7.52 and this goes against DKA. The patient was given IV Reglan which she reported helped her symptoms and was hydrated with 2 L of fluid. At this time her response to medication and hydration is still pending. Patient will need to be watched to ensure that her nausea and vomiting does not return. Therefore as her response to treatment is still pending she will be signed out to the day physician Dr. Barfield for further observation History & Record Review Discussion w/independent historian: EMS personnel and Patient Lab Data Attestation: I reviewed the patient's lab results. Labs: Laboratory Results - last 24 hr 01/04/25 01/04/25 06:18 07:55 WBC 14.7 H RBC 4.47 Hgb 12.4 Hct 36.0 L MCV 80.5 L MCH 27.7 MCHC 34.4 RDW Std Deviation 42.6 RDW Coeff of John 14.7 H Plt Count 446 MPV 10.0 Immature Gran % (Auto) 0.700 Neut % (Auto) 64.8 Lymph % (Auto) 27.5 [place] % (Auto) 6.7 Eos % (Auto) 0.0 Baso % (Auto) 0.3 Absolute Neuts (auto) 9.5 H Absolute Lymphs (auto) 4.04 Nucleated RBC % 0 Sodium 139 Potassium 3.1 L Chloride 102 Carbon Dioxide 16.6 L Anion Gap 20 H BUN 12 Creatinine 0.93 Estim Creat Clear Calc 105.48 Est GFR (MDRD) Non-Af 84 BUN/Creatinine Ratio 12.5 Glucose 159 H Serum Osmolality 292 Lactic Acid 1.6 Calcium 9.3 Magnesium 1.8 Total Bilirubin 0.64 Direct Bilirubin 0.22 AST 17 ALT 9 Alkaline Phosphatase 70 Total Protein 8.0 Albumin 4.2 Globulin 3.8 Lipase 32 b-Hydroxybutyric mmol/L 2.1 H Serum , Qual NEGATIVE Urine Opiates Screen PRESUMPTIVE POSITIVE U Buprenorphine Qual NEGATIVE Ur Oxycodone Screen NEGATIVE Urine Methadone Screen NEGATIVE Urine Fentanyl Screen NEGATIVE Ur Barbiturates Screen NEGATIVE Ur Phencyclidine Scrn NEGATIVE Ur Amphetamines Screen NEGATIVE U Benzodiazepines Scrn NEGATIVE Urine Cocaine Screen NEGATIVE U Cannabinoids Screen NEGATIVE Ethyl Alcohol < 10.1 ABG Data ABG results: ABG 01/04/25 06:45 Specimen Type ESTRELLA Sample Site Not entered VBG pH 7.52 H VBG pO2 49 H VBG HCO3 19 L VBG Total CO2 20 L VBG O2 Sat (Calc) 89 H VBG Base Excess -4 L POC Mix VBG pCO2 Pt Tmp 23.6 L O2 Delivery Device Not entered Radiography Diagnostic Testing: Clinical Impression(s) from Imaging Studies Abdomen/Pelvis CT 01/04/25 08:00 IMPRESSION: Fatty infiltration of the liver. Borderline hepatomegaly. Stable 1.8 cm follicle in the left ovary. Reading Location: [id number] <Dr. Poli Barfield, DO - Last Filed: 01/04/25 11:19> [facility] MDM Narrative Medical decision making narrative: Patient arrived to ER hypertensive but otherwise with stable vitals. She has a longstanding history of recurrent nausea and vomiting. She states has been over 1 month since her last marijuana use which would go against cannabis hyperemesis syndrome as the cause of her nausea and vomiting. Trulicity could be the cause as well but she states she has not been taking it. Based on her history of diabetes that has also led to admission for DKA there is concern that she has developed gastroparesis. Patient could also have acute kidney injury or clinically significant electrolyte abnormality or complication as a cause of her recurrent symptoms. Basic blood work was obtained and shows leukocytosis but I feel this is most likely stress response and otherwise labs r evealed no clinically significant findings such as significant hypokalemia acute kidney injury or lactic acidosis. Her beta high beta hydroxybutyrate level is elevated at 2.1 and her carbon dioxide is low at 17 with a bump to her anion gap but this is most likely starvation ketosis as VBG shows a pH of 7.52 and this goes against DKA. The patient was given IV Reglan which she reported helped her symptoms and was hydrated with 2 L of fluid. At this time her response to medication and hydration is still pending. Patient will need to be watched to ensure that her nausea and vomiting does not return. Therefore as her response to treatment is still pending she will be signed out to the day physician Dr. Barfield for further observation 0740: Carolyne. Patient known to me from recent evaluations. Second liter of fluids is running at this time. Patient reports symptoms are improved currently. She states she has been vomiting every day. Diabetic on Lantus and does get Trulicity injections weekly she got this past week. Currently symptoms are improved soft abdomen on my evaluation. Patient reporting she knows her symptoms will worsen when she leaves here. Her labs were reviewed. Glucose 159 gap of 20. Hydroxy B thyroid 2.1. White count of 14. Likely reactive as she has a nonsurgical abdomen. Denied any diarrhea or any bloody stools. 0800: Nurse review reports patient asking for pain medications. I will dose her with Levsin, placed her on scopolamine patch to prevent recurrent nausea and vomiting. She had colitis a month ago she has a leukocytosis of 14. Will send her to CT for further evaluation. 0900: CT scan results fatty liver 1.8 cm stable left ovarian cyst. Will recheck BMP as she had a gap acidosis. Toxicology screen negative for THC today was +5 days ago. Opiates were positive however she was given morphine from initial treatment. 0920: Patient was given her medicines she is reporting creasing pain I discussed the results with her with her incidental ovarian cyst not causing her symptoms. She is tearful stating she has pain. I will treat her with cyclic vomiting cocktail that has helped her previously which includes Benadryl and Thorazine through IV bag. I will add IV Pepcid. Additional liter of fluids will be ordered. Will hold on the BNP until fluids are done. 1110: Patient had total 3 L of fluid in. There is plans for recheck BMP, how ever patient told nursing she had to leave. She alert and oriented x 3 she capable making decisions. To the pharmacy. Patient was signed out against medical vice. I will send in scopolamine patches to pharmacy. She did not pick up worker the prescriptions written for her couple days ago. She will continue to follow-up with her GI doctor. Her reasoning for leaving is that she had to leave to move out by 1:45 PM. Of note clinically did appear better. Lab Data Labs: Laboratory Results - last 24 hr 01/04/25 01/04/25 06:18 07:55 WBC 14.7 H RBC 4.47 Hgb 12.4 Hct 36.0 L MCV 80.5 L MCH 27.7 MCHC 34.4 RDW Std Deviation 42.6 RDW Coeff of John 14.7 H Plt Count 446 MPV 10.0 Immature Gran % (Auto) 0.700 Neut % (Auto) 64.8 Lymph % (Auto) 27.5 [place] % (Auto) 6.7 Eos % (Auto) 0.0 Baso % (Auto) 0.3 Absolute Neuts (auto) 9.5 H Absolute Lymphs (auto) 4.04 Nucleated RBC % 0 Sodium 139 Potassium 3.1 L Chloride 102 Carbon Dioxide 16.6 L Anion Gap 20 H BUN 12 Creatinine 0.93 Estim Creat Clear Calc 105.48 Est GFR (MDRD) Non-Af 84 BUN/Creatinine Ratio 12.5 Glucose 159 H Serum Osmolality 292 Lactic Acid 1.6 Calcium 9.3 Magnesium 1.8 Total Bilirubin 0.64 Direct Bilirubin 0.22 AST 17 ALT 9 Alkaline Phosphatase 70 Total Protein 8.0 Albumin 4.2 Globulin 3.8 Lipase 32 b-Hydroxybutyric mmol/L 2.1 H Serum , Qual NEGATIVE Urine Opiates Screen PRESUMPTIVE POSITIVE U Buprenorphine Qual NEGATIVE Ur Oxycodone Screen NEGATIVE Urine Methadone Screen NEGATIVE Urine Fentanyl Screen NEGATIVE Ur Barbiturates Screen NEGATIVE Ur Phencyclidine Scrn NEGATIVE Ur Amphetamines Screen NEGATIVE U Benzodiazepines Scrn NEGATIVE Urine Cocaine Screen NEGATIVE U Cannabinoids Screen NEGATIVE Ethyl Alcohol < 10.1 ABG Data ABG results: ABG 01/04/25 06:45 Specimen Type ESTRELLA Sample Site Not entered VBG pH 7.52 H VBG pO2 49 H VBG HCO3 19 L VBG Total CO2 20 L VBG O2 Sat (Calc) 89 H VBG Base Excess -4 L POC Mix VBG pCO2 Pt Tmp 23.6 L O2 Delivery Device Not entered Radiography Diagnostic Testing: Clinical Impression(s) from Imaging Studies Abdomen/Pelvis CT 01/04/25 08:00 IMPRESSION: Fatty infiltration of the liver. Borderline hepatomegaly. Stable 1.8 cm follicle in the left ovary. Reading Location: [id number] Discharge Plan Triage Chief Complaint: Nausea/Vomiting ED Provider: Perico Norman Dx/Rx/DC Orders Clinical Impression: Diabetes mellitus type 2, insulin dependent, Nausea & vomiting, Dehydration, Cyclical vomiting Instructions: ED Cyclic Vomiting Syndrome Prescriptions: New scopolamine base 1 mg over 3 days patch 3 day 1 patch transdermal Q3D PRN (Reason: nausea and vomiting) Qty: 4 0RF No Action Linzess 145 mcg capsule 145 mcg PO QAM Qty: 30 2RF insulin glargine [Lantus Solostar U-100 Insulin] 100 unit/mL (3 mL) insulin pen 20 unit SUBCUT BID Patient Comments: PT HAS BEEN TAKING 35-40 UNITS TWICE DAILY albuterol sulfate 90 mcg/actuation HFA aerosol inhaler 2 puff INHALATION Q4H PRN (Reason: shortness of breath or wheezing) Trulicity 4.5 mg/0.5 mL pen injector 4.5 mg subcut SA promethazine 25 mg tablet 25 mg PO Q6H PRN (Reason: nausea and vomiting) Qty: 25 0RF Rx Instructions: 1 or 2 every 6 hours as needed for nausea and vomiting hyoscyamine sulfate [Levsin/SL] 0.125 mg tablet, sublingual 0.125 mg sublingual Q8H PRN (Reason: abdominal discomfort) Qty: 10 0RF ondansetron 4 mg tablet,disintegrating 4 mg PO Q8H PRN PRN (Reason: Nausea) Qty: 10 0RF Primary Care Provider: Amy Dasilva Referrals: Friend,DO Venkatesh [Med Staff - Active Staff] - Keep Vasyl appointment Amy Dasilva, CLINIC SCHEDULER-[facility] [Primary Care Provider] - Print Language: Urdu Disposition Disposition: Against Medical Advice Discharge Date/Time: 01/04/25 11:32
--- NOTE | 2025-01-04 08:00 | CT_ITS ---
PROCEDURE: ABDOMEN/PELVIS W IV CONT ONLY 01/04/2025 REASON FOR EXAM: ABD PAIN History of cyclic vomiting syndrome. One-month history of nausea and vomiting. TECHNIQUE: ABDOMEN/PELVIS W IV CONT ONLY Coronal and Sagittal reconstruction series were provided. CONTRAST: Isovue-300 VOLUME: 100 mL One or more dose reduction techniques were used (e.g., Automated exposure control, adjustment of the mA and/or kV according to patient size, use of iterative reconstruction technique. RADIATION DOSE SUMMARY: CTDlvol: 16.5 mGy DLP: 1246.78 mGycm COMPARISON: Prior study dated November 27, 2024. FINDINGS: Lung bases: Lung bases are clear. Liver: Diffuse fatty infiltration.. Borderline hepatomegaly. Gallbladder: Unremarkable Spleen: Normal size. Pancreas: Normal size without evidence of mass surrounding inflammation or ductal dilation. Adrenals: Unremarkable Kidneys: Normal renal sizes. No hydronephrosis. Bladder: The bladder is empty at the time of the examination. Reproductive Organs: Normal uterine size and contour. Stable 1.8 cm follicle in the left ovary. Bowel: Unremarkable Appendix: Unremarkable Lymph nodes: Unremarkable. Vasculature: The abdominal aorta and IVC are normal. Peritoneum / Retroperitoneum: Unremarkable Bones: Unremarkable CT/Abdomen/Pelvis W IV Cont ONLY IMPRESSION: Fatty infiltration of the liver. Borderline hepatomegaly. Stable 1.8 cm follicle in the left ovary. Reading Location: [id number]
[2025-01-04 08:10] VITALS: BP 122/70
[2025-01-04] MEDS: Hyoscyamine Sulfate 0.125 MG Tablet 0.25 MG SL (08:24)
[2025-01-04] MEDS: Scopolamine 1mg/72hr Patch 1 PATCH TD (08:25)
[2025-01-04 08:54] LABS: Amphetamine Urine NEGATIVE (<1000 ng/mL); Barbiturate Urine NEGATIVE (< 200 ng/mL); Benzodiazepine Urine NEGATIVE (< 200 ng/mL); Buprenorphine Urine NEGATIVE (< 200 ng/mL); Cocaine Urine NEGATIVE (< 300 ng/mL); Fentanyl, Urine NEGATIVE; Methadone Urine NEGATIVE (< 300 ng/mL); Opiates Urine PRESUMPTIVE POSITIVE (< 300 ng/mL); Oxycodone, Urine NEGATIVE (< 100 ng/mL); PCP Urine NEGATIVE (< 25 ng/mL); THC Urine NEGATIVE (< 50 ng/mL)
[2025-01-04] MEDS: Famotidine 200 MG/20 ML MDV 20 MG in 0.9% Normal Saline (Pres. free 8 ML 300 MG IV (09:43)
[2025-01-04] MEDS: DiphenhydrAMINE 25 MG, ChlorproMAZINE 25 MG in 0.9% Normal Saline (100mL Bag) 100 ML 203 MG IV (09:44)
[2025-01-04 10:00] VITALS: BP 147/81; PULSE 73; RESP 13; O2SAT 97
== END 2025-01-04 11:32 | disposition left against medical advice (07) ==
PROVIDERS: Emergency Provider Emergency Medicine; PCP Nurse Practitioner Family; Visit Provider Emergency Medicine
DX: R11.15 Cyclical vomiting syndrome unrelated to migraine (principal); Z89.432 Acquired absence of left foot; Z79.4 Long term (current) use of insulin; E11.40 Type 2 diabetes mellitus with diabetic neuropathy, unspecified; N83.202 Unspecified ovarian cyst, left side; E86.0 Dehydration; Z87.891 Personal history of nicotine dependence; F41.9 Anxiety disorder, unspecified; F32.A Depression, unspecified; Z79.85 Long-term (current) use of injectable non-insulin antidiabetic drugs; E66.9 Obesity, unspecified; D72.829 Elevated white blood cell count, unspecified; K21.9 Gastro-esophageal reflux disease without esophagitis; J45.909 Unspecified asthma, uncomplicated; Z53.29 Procedure and treatment not carried out because of patient's decision for other reasons
CPT/HCPCS: 74177; 80048; 80076; 80307; 82010; 82077; 82803; 83605; 83690; 83735; 83930; 84703; 85025; 96361; 96365; 96375; 99285; A4216; J2405; Q9967

== ENCOUNTER 2025-01-07 12:41 | Inpatient (IN) | payer MEDICAID, SELFPAY ==
[2025-01-07] VITALS (13 sets, daily range): BP systolic 118–145; BP diastolic 69–92; PULSE 70–106; RESP 10–19; TEMP 36.5–37.1; O2SAT 95–100; BMI 37.6; BMI 37.1
--- NOTE | 2025-01-07 12:56 | EKG12_ITS ---
Test Reason : OVERDOSE Blood Pressure : */* mmHG Vent. Rate : 79 BPM Atrial Rate : 79 BPM P-R Int : 110 ms QRS Dur : 90 ms QT Int : 392 ms P-R-T Axes : -18 -4 138 degrees QTcB Int : 449 ms Sinus rhythm with short GA Left ventricular hypertrophy with repolarization abnormality ( R in aVL , [place] product , Romhilt-Abbasi ) Abnormal ECG Confirmed by DESTINY HUERTAS MD ([id number]), restaurant expeditor CHRISTINA WALKER ([id number]) on 01/09/2025 6:35:00 AM Referred By: Fabricio Guevara Confirmed By: DESTINY HUERTAS MD
--- NOTE | 2025-01-07 12:56 | EX.ED.DYSGE1 ---
HPI <MIGUEL A Ward - Last Filed: 01/07/25 16:04> History of Present Illness Chief Complaint: Suicidal Narrative Narrative: 34-year-old female with past medical history of DM2, cyclical vomiting syndrome presents after an intentional overdose of insulin. She states she has had ongoing issues with nausea vomiting abdominal pain for a month and has been in the ER multiple times. She lives in apartment with her boyfriend but they broke up and she moved into hotel 2 days ago. She did not have money to stay very longer and this morning was feeling depressed and tried to kill herself by taking 2 Lantus pens (200 units) and a full Trulicity pen. She had to check out of the hotel and told the staff that she took too much insulin and they called EMS. Patient denies taking any other prescription medications, drugs, or alcohol. She states she has not smoked weed for a month. She reports 1 suicide attempt at age 20 by overdosing on pills but she woke up and was fine it was not evaluated anywhere. She has never been hospitalized for mental health issues. [facility] <MIGUEL A Ward - Last Filed: 01/07/25 16:04> [facility] Medical History Borderline personality disorder Depression with anxiety Obesity (BMI 30-39.9) Medical non-compliance Cyclic vomiting syndrome Diabetic ketoacidosis Cannabis abuse Type 2 diabetes mellitus with peripheral neuropathy Diabetes GERD (gastroesophageal reflux disease) Wears glasses History of MRSA infection Borderline personality disorder Alcohol use Insulin dependent diabetes mellitus Dietary restriction Heartburn Smoker Shortness of breath on exertion Leg cramps Neuropathy, diabetic Elevated serum creatinine Failure of outpatient treatment Nausea and vomiting Diabetes mellitus with diabetic polyneuropathy Type 2 diabetes mellitus with foot ulcer Anxiety Depression Constipation Asthma Diabetes Home Medications ?Medication ?Instructions ?Recorded ?Last Taken ?Type insulin glargine 100 unit/mL (3 25 unit subcut BID diabetes 08/12/22 01/07/25 History mL) subcutaneous pen (Lantus Solostar U-100 Insulin) dulaglutide 4.5 mg/0.5 mL 4.5 mg subcut SA diabetes 11/25/24 01/07/25 History subcutaneous pen injector (Trulicity) linaclotide 145 mcg capsule 145 mcg PO QAM IBS #30 caps 12/13/24 12/29/24 Rx (Linzess) promethazine 25 mg tablet 25 mg PO Q6H PRN nausea and 01/01/25 Unknown Rx vomiting #25 tabs scopolamine base 1 mg over 3 days 1 patch transdermal Q3D PRN nausea 01/04/25 Unknown Rx transdermal patch and vomiting #4 ea Allergy/AdvReac Type Severity Reaction Status Date / Time No Known Allergies Allergy Verified 01/07/25 12:49 Family History Other Bleeding disorder Cancer Diabetes Hypertension Surgical History Hx of foot surgery Hx of foot surgery Social History Smoking Status: Former smoker alcohol intake: never substance use type: does not use what type of physical activity do you participate in: none ROS <MIGUEL A Ward - Last Filed: 01/07/25 16:04> ROS ED ROS Narrative Constitutional: Negative for fever, chills, malaise. GI: Negative for abdominal pain. Neuro: Negative for headache. EXAM <MIGUEL A Ward - Last Filed: 01/07/25 16:04> Physical Exam Narrative Exam Narrative: CONST: Patient awake crying in bed. EYES: Normal inspection. ENT: Normal inspection, moist mucous membranes. NECK: Normal inspection. RESP: No respiratory distress, CTAB. CVS: Regular rate and rhythm, no murmur, no gallop. ABD: Soft and nontender, no guarding or rebound, nondistended. SKIN: Color normal, no rash, warm, dry, intact. EXTREMITIES: Normal appearance, no pedal edema. NEURO: Alert and answering questions appropriately. PSYCH: Tearful. Const Vital Signs: 01/07/25 12:49 01/07/25 12:53 01/07/25 13:28 Temperature 97.7 F L Temperature Source Oral Pulse Rate 85 106 H Respiratory Rate 10 L Respiratory Pattern Normal Blood Pressure 133/92 H 118/82 H Blood Pressure Mean 105 94 Pulse Ox 100 99 Oxygen Delivery Method Room Air Room Air 01/07/25 13:30 01/07/25 14:00 01/07/25 14:30 Temperature 98 F Temperature Source Pulse Rate 102 H 92 84 Respiratory Rate 13 14 19 H Respiratory Pattern Blood Pressure 139/91 H 132/79 H 121/71 H Blood Pressure Mean 103 93 87 Pulse Ox 100 100 100 Oxygen Delivery Method 01/07/25 15:00 01/07/25 15:30 Temperature Temperature Source Pulse Rate 93 91 Respiratory Rate 16 19 H Respiratory Pattern Blood Pressure 124/88 H 133/90 H Blood Pressure Mean 98 102 Pulse Ox 100 100 Oxygen Delivery Method <Dr. Fabricio Guevara MD - Last Filed: 01/07/25 13:27> Physical Exam Const Vital Signs: 01/07/25 12:49 01/07/25 12:53 01/07/25 13:28 Temperature 97.7 F L Temperature Source Oral Pulse Rate 85 106 H Respiratory Rate 10 L Respiratory Pattern Normal Blood Pressure 133/92 H 118/82 H Blood Pressure Mean 105 94 Pulse Ox 100 99 Oxygen Delivery Method Room Air Room Air 01/07/25 13:30 01/07/25 14:00 01/07/25 14:30 Temperature 98 F Temperature Source Pulse Rate 102 H 92 84 Respiratory Rate 13 14 19 H Respiratory Pattern Blood Pressure 139/91 H 132/79 H 121/71 H Blood Pressure Mean 103 93 87 Pulse Ox 100 100 100 Oxygen Delivery Method 01/07/25 15:00 01/07/25 15:30 Temperature Temperature Source Pulse Rate 93 91 Respiratory Rate 16 19 H Respiratory Pattern Blood Pressure 124/88 H 133/90 H Blood Pressure Mean 98 102 Pulse Ox 100 100 Oxygen Delivery Method MDM <MIGUEL A Ward - Last Filed: 01/07/25 16:04> [facility] MDM Narrative Medical decision making narrative: Differential includes: insulin overdose, hypoglycemia, electrolyte derangement 34-year-old female with PMH of DM2, cyclical vomiting is suicidal and intentionally overdosed on insulin at 6 AM. She took Lantus 200 units and 1 full Trulicity pen. She arrives awake and alert. GCS 15. She is crying and anxious but has an otherwise benign exam. Her vital signs are normal. The documented respiratory rate of 10 but during my exam it is normal at 18. Fingerstick glucose was 71 and she was given orange juice and a food tray. Blood work was obtained. WBC is 16.0. Potassium is low at 2.8 and she was given p.o. replacement. Glucose is 85. negative. Alcohol level negative. Urine tox is positive for cannabinoids. Her blood sugars have been stable in the department after eating around 70s to 100s. I do think she requires further observation with the significant volume of insulin she took. I discussed the case with Dr. Coulter and she was admitted to the PCU. Patient was also pink slipped since this was an intentional insulin overdose with intent to commit suicide and will have psychiatric evaluation while inpatient. I have personally performed a face to face assessment of the patient and have reviewed the ANGELES Note. I performed a substantive portion of the visit including all aspects of the following. My saucedo findings include: History is 34-year-old female history of personality disorder. History of diabetes. States she has been have a lot of abdominal issues she has a history of PCOS and they are working up for possible gastroparesis. She is just had enough of it. This morning she took 200 units of insulin and Trulicity. This was in an attempt to overdose. This occurred around 6 AM. She denies any other ingestion. Exam is Medical Decision Making [34-year-old female with concern for attempted suicide by overdosing on insulin she is a known diabetic. Her initial blood sugar by squad was 91 currently at 71. She is awake and alert. Will give her food to eat. She is already drank orange juice with sugar in it. She will be observed most likely will need to be admitted to watch her sugars closely before she can be sent to a psychiatric facility.] Other additions or changes: [None] History & Record Review Additional record(s) reviewed:: Prior ED visit and Prior labs Lab Data Attestation: I reviewed the patient's lab results. Labs: Laboratory Results - last 24 hr 01/07/25 01/07/25 01/07/25 12:48 12:52 13:04 WBC 16.0 H RBC 4.75 Hgb 13.1 Hct 38.5 MCV 81.1 MCH 27.6 MCHC 34.0 RDW Std Deviation 42.3 RDW Coeff of John 14.6 Plt Count 477 H MPV 9.5 Immature Gran % (Auto) 0.600 Neut % (Auto) 63.9 Lymph % (Auto) 27.8 [place] % (Auto) 7.4 Eos % (Auto) 0.1 Baso % (Auto) 0.2 Absolute Neuts (auto) 10.2 H Absolute Lymphs (auto) 4.44 Nucleated RBC % 0 Sodium 136 Potassium 2.8 L Chloride 98 Carbon Dioxide 20.7 L Anion Gap 18 H BUN 11 Creatinine 1.10 Estim Creat Clear Calc 90.29 Est GFR (MDRD) Non-Af 68 BUN/Creatinine Ratio 10.4 Glucose 85 Calcium 9.1 Total Bilirubin 0.64 AST 35 H ALT 17 Alkaline Phosphatase 74 Total Protein 7.7 Albumin 3.9 Globulin 3.8 Albumin/Globulin Ratio 1.0 Serum , Qual NEGATIVE Urine Color Yellow Urine Clarity Sl. Cloudy Urine pH 6.0 Ur Specific [place] 1.015 Urine Protein 30 H Urine Glucose (UA) Normal Urine Ketones Negative Urine Occult Blood 250 H Urine Nitrite Negative Urine Bilirubin Negative Urine Urobilinogen Normal Ur Leukocyte Esterase 25 H Urine RBC 0-5 SEEN Urine WBC 5-10 SEEN Ur Squamous Epith Cells 0-5 SEEN Urine Bacteria 2+ Urine Mucus 1+ Urine Opiates Screen NEGATIVE U Buprenorphine Qual NEGATIVE Ur Oxycodone Screen NEGATIVE Urine Methadone Screen NEGATIVE Urine Fentanyl Screen NEGATIVE Ur Barbiturates Screen NEGATIVE Ur Phencyclidine Scrn NEGATIVE Ur Amphetamines Screen NEGATIVE U Benzodiazepines Scrn NEGATIVE Urine Cocaine Screen NEGATIVE U Cannabinoids Screen PRESUMPTIVE POSITIVE Ethyl Alcohol < 10.1 POC Glucose 71 L EKG Initial EKG: Attestation: I personally reviewed and interpreted this EKG as follows: Interpretation: Sinus Rhythm and No Acute Injury Pattern Comments: Normal sinus rhythm at 79 bpm Short MN interval 110 ms No acute ischemic changes Prior EKG appears similar but MN interval was 144 ms Prior EKG tracings: available for review <Dr. Fabricio Guevara MD - Last Filed: 01/07/25 13:27> [facility] Narrative Medical decision making narrative: I have personally performed a face to face assessment of the patient and have reviewed the ANGELES Note. I performed a substantive portion of the visit including all aspects of the following. My saucedo findings include: History is 34-year-old female history of personality disorder. History of diabetes. States she has been have a lot of abdominal issues she has a history of PCOS and they are working up for possible gastroparesis. She is just had enough of it. This morning she took 200 units of insulin and Trulicity. This was in an attempt to overdose. This occurred around 6 AM. She denies any other ingestion. Exam is [34-year-old female vital signs stable afebrile. She does not look septic or toxic. No distress. She is anxious and tearful. She is hyperventilating when I am in the room. H EENT exam pupils round react to light. Moist pink membranes. Neck nontender. No JVD. No lymphadenopathy. Lungs clear to auscultation bilaterally. Heart regular rhythm rate about 85 no murmur. Chest wall ribs nontender. Abdomen soft nontender. Moving all 4 extremities. Nontender no edema. Back nontender. Neurologically she is awake alert. She is answering questions and following commands.] Medical Decision Making [34-year-old female with concern for attempted suicide by overdosing on insulin she is a known diabetic. Her initial blood sugar by squad was 91 currently at 71. She is awake and alert. Will give her food to eat. She is already drank orange juice with sugar in it. She will be observed most likely will need to be admitted to watch her sugars closely before she can be sent to a psychiatric facility.] Other additions or changes: [None] History & Record Review Discussion w/independent historian: Patient Additional record(s) reviewed:: Prior inpatient record and Prior outpatient record Lab Data Lab results narrative: CBC shows white count of 16. H&H of 13.1 and 38. Platelets 477. Labs: Laboratory Results - last 24 hr 01/07/25 01/07/25 01/07/25 12:48 12:52 13:04 WBC 16.0 H RBC 4.75 Hgb 13.1 Hct 38.5 MCV 81.1 MCH 27.6 MCHC 34.0 RDW Std Deviation 42.3 RDW Coeff of John 14.6 Plt Count 477 H MPV 9.5 Immature Gran % (Auto) 0.600 Neut % (Auto) 63.9 Lymph % (Auto) 27.8 [place] % (Auto) 7.4 Eos % (Auto) 0.1 Baso % (Auto) 0.2 Absolute Neuts (auto) 10.2 H Absolute Lymphs (auto) 4.44 Nucleated RBC % 0 Sodium 136 Potassium 2.8 L Chloride 98 Carbon Dioxide 20.7 L Anion Gap 18 H BUN 11 Creatinine 1.10 Estim Creat Clear Calc 90.29 Est GFR (MDRD) Non-Af 68 BUN/Creatinine Ratio 10.4 Glucose 85 Calcium 9.1 Total Bilirubin 0.64 AST 35 H ALT 17 Alkaline Phosphatase 74 Total Protein 7.7 Albumin 3.9 Globulin 3.8 Albumin/Globulin Ratio 1.0 Serum , Qual NEGATIVE Urine Color Yellow Urine Clarity Sl. Cloudy Urine pH 6.0 Ur Specific [place] 1.015 Urine Protein 30 H Urine Glucose (UA) Normal Urine Ketones Negative Urine Occult Blood 250 H Urine Nitrite Negative Urine Bilirubin Negative Urine Urobilinogen Normal Ur Leukocyte Esterase 25 H Urine RBC 0-5 SEEN Urine WBC 5-10 SEEN Ur Squamous Epith Cells 0-5 SEEN Urine Bacteria 2+ Urine Mucus 1+ Urine Opiates Screen NEGATIVE U Buprenorphine Qual NEGATIVE Ur Oxycodone Screen NEGATIVE Urine Methadone Screen NEGATIVE Urine Fentanyl Screen NEGATIVE Ur Barbiturates Screen NEGATIVE Ur Phencyclidine Scrn NEGATIVE Ur Amphetamines Screen NEGATIVE U Benzodiazepines Scrn NEGATIVE Urine Cocaine Screen NEGATIVE U Cannabinoids Screen PRESUMPTIVE POSITIVE Ethyl Alcohol < 10.1 POC Glucose 71 L Discharge Plan Dx/Rx/DC Orders Clinical Impression: Suicidal behavior, Insulin overdose, Hx of type 2 diabetes mellitus, Acute hypokalemia Disposition Disposition: Acute Care Hospital [facility]
[2025-01-07 13:05] LABS: Bedside Glucose 71 mg/dL (74-106)
[2025-01-07 13:13] LABS: Absolute Lymphocyte Count 4.44 X10^3/uL (0.83-4.51); Absolute Neutrophil Count 10.2 X10^3/uL (2.0-7.7); Basophil# 0.03 X10^3/uL; Basophil% 0.2 % (0-1); Eosinophil# 0.01 X10^3/uL; Eosinophils% 0.1 % (0-5); Hematocrit 38.5 % (37-47); Hemoglobin 13.1 g/dL (12.0-15.0); Lymphocyte # 4.44 X10^3/ul (0.83-4.51); Lymphocyte % 27.8 % (19-41); Mean Corpuscular Hgb 27.6 pg (27.0-32.0); Mean Corpuscular Volume 81.1 fL (81-99); Mean Platelet Vol. 9.5 fl (6.2-12.0); Monocyte# 1.18 X10^3/uL; Monocyte% 7.4 % (0-10); NRBC Flagged by Analyzer 0 % (0-5); Neutrophil % 63.9 % (47-70); Platelet Count 477 K/mm3 (150-450); RBC Distribution Width CV 14.6 % (11.6-14.6); RBC Distribution Width SD 42.3 fl (35.1-43.9); Red Blood Count 4.75 M/mm3 (4.2-5.4)
[2025-01-07 13:24] LABS: AST(SGOT) 35 U/L (<=31); Alanine Aminotransfer ALT/SGPT 17 U/L (<=34); Albumin, Serum 3.9 g/dL (3.5-5.0); Alkaline Phosphatase 74 U/L (35-104); Anion Gap 18 (5-15); BUN 11 mg/dL (4-19); BUN/Creat Ratio 10.4 RATIO (10-20); Calcium,Total 9.1 mg/dL (7.6-11.0); Carbon Dioxide 20.7 mmol/L (21.0-32.0); Chloride 98 mmol/L (98-108); EST Glomerular Filtration Rate 68 (>60); Estimated Creatinine Clearance 90.29 ml/min (50-250); Globulin 3.8 g/dL (2.2-4.2); Glucose 85 mg/dL (70-99); Potassium 2.8 mmol/L (3.3-5.1); Protein, Total 7.7 g/dL (5.9-8.4); Sodium Level 136 mmol/L (133-145); Total Bilirubin 0.64 mg/dL (0.00-1.30)
[2025-01-07 13:33] LABS: Internal QC Validated? YES +Cl - CLEAR BKGD; Pregnancy, Serum, hCG Quali. NEGATIVE Negative
[2025-01-07 13:34] LABS: Alcohol, Blood (Medical)-Serum < 10.1 mg/dL (<=10.0)
[2025-01-07 13:39] LABS: Amphetamine Urine NEGATIVE (<1000 ng/mL); Barbiturate Urine NEGATIVE (< 200 ng/mL); Benzodiazepine Urine NEGATIVE (< 200 ng/mL); Buprenorphine Urine NEGATIVE (< 200 ng/mL); Cocaine Urine NEGATIVE (< 300 ng/mL); Fentanyl, Urine NEGATIVE; Methadone Urine NEGATIVE (< 300 ng/mL); Opiates Urine NEGATIVE (< 300 ng/mL); Oxycodone, Urine NEGATIVE (< 100 ng/mL); PCP Urine NEGATIVE (< 25 ng/mL); THC Urine PRESUMPTIVE POSITIVE (< 50 ng/mL)
--- NOTE | 2025-01-07 13:40 | CM.ED ---
Date of referral: 01/07/25 Reason for referral: Suicidal Ideation Referred by: Social Work Identification Patient provided consent to social work visit. Psychiatric assessment not completed as patient has not been medically cleared and is going to be admitted to the Acute floor. In reviewing notes/medical record leading up to whether or not patient would be admitted, social determinants were identified so community mental health social worker completed the Social Determinants of Health Assessment with patient and in addition, provided resources. See assessment for details. Patient also mentioned that she left her diabetic shoes at her ex-'s apartment because she was unable to find them and will likely not get those back. Business Editor conferred with ED physician who confirmed there will be a sitter assigned to patient until patient is medically cleared, at which point, patient will be in need of a psychiatric assessment due to attempted suicide. Business Editor also provided patient with written information for the [facility] for a case work aide who may be able to assist patient with applying for Social Security Disability. Deann Smith, CHIEF OF FIELD OPERATIONS, SEWER AND DRAIN TECHNICIAN
[2025-01-07] MEDS: Potassium Chloride Oral Tablet 20 MEQ 40 MEQ PO (13:44)
--- OUTSIDE RECORDS SUMMARY | 2025-01-07 13:58 | XMS RPT_ITS | CCD ---
Author Organization [facility] CliniSynv Care Team Providers Care Baker Second Name Role Phone Care Physician, No Primary [...] Provider Dr. Andres Matias Other Provider Dr. Charles Green Other Provider Dr. Alex Christiansen Emergency Provider Dr. Valencia Urbina Admit Provider Dr. Valencia Urbina Attending Provider [phone] Thin prep Papanicolaou smear with manual screening 9 5-15 [facility] Urine blood detectionOrdered By: Drew Hinson on 06-28-2023 RBC Ql (U) 25 /ul Negative [facility] RBC Ql (U) 0-5 SEEN /hpf 0-5 [facility] Urine clarityOrdered By: Dwight Hinson on 06-28-2023 Clarity (U) Cloudy Clear [facility] Urine color determinationOrd ered By: Drew Hinson on 06-28-2023 Color (U) Yellow Yellow [facility] Urine glucose detectionOrder ed By: Drew Hinson on 06-28-2023 Glucose Ql (U) 50 mg/dl Normal [facility] Urine leukocyte esterase det ection by dipstickOrdered By: Drew Hinson on 06-28-2023 Leukocyte esterase Test strip Ql (U) 25 /ul Negative [facility] Urine pHOrdered By: Drew castellanos on 06-28-2023 pH (U) 6.0 [pH] 5.0 - 8.0 [facility] Urine sediment bacteria coun t by microscopy (number/high power field)Ordered By: Drew Hinson on 06-28-2023 Bacteria LM.HPF (Urine sed) [#/Area] 2 /[HPF] None Seen [facility] Urine specific gravity measu rementOrdered By: Drew Hinson on 06-28-2023 Specific gravity (U) [Rel density] 1.020 1.002-1.030 [facility] Urobilinogen Auto test strip Ql (U)Ordered By: Drew Hinson on 06-28-2023 Urobilinogen Ql (U) 1 mg/dl Normal [facility] Absolute lymphocyte countOrd ered By: Taiwo Chen on 06-26-2023 Lymphocytes Auto (Unsp spec) [#/Vol] 2.63 10*3/uL 0.83-4.51 [facility] Basophil percentageOrdered B y: Taiwo Chen on 06-26-2023 Basophil percentage 228 mg/dL 74-106 [facility] Basophil percentage 8.4 g/dL 6.4-8.2 [facility] Basophil percentage 0.30 mg/dL 0.20-1.00 [facility] Basophil percentage 136 mmol/L 136-145 [facility] Basophil percentage 3.8 mmol/L 3.5-5.1 [facility] Basophil percentage 102 mmol/L 98-107 [facility] Basophils (Bld) [#/Vol] 8.6 10*3/uL 4.4-11.0 [facility] Basophils (Bld) [#/Vol] 5.5 10*3/uL 2.0-7.7 [facility] Basophils/100 WBC (Bld) 0.6 % 0-1 [facility] Basophils/100 WBC (Bld) 63.6 % 47-70 [facility] Basophils/100 WBC (Bld) 0.2 % 0-5 [facility] Bilirubin [Mass/Vol] 0.30 mg/dL 0.20-1.00 [facility] Comment on above: For patients on eltr ombopag therapy, use of Dimension [place] TBIL is not recommended. Chloride [Moles/Vol] 102 mmol/L 98-107 [facility] Eosinophils/100 WBC (Bld) 0.2 % 0-5 [facility] Glucose [Mass/Vol] 228 mg/dL 74-106 [facility] Comment on above: Glucose result great er than or equal to 200 mg/dLsuggests DIABETES MELLITUS per A.D.A. criteria. Neutrophils (Bld) [#/Vol] 5.5 10*3/uL 2.0-7.7 [facility] Neutrophils/100 WBC (Bld) 63.6 % 47-70 [facility] Potassium [Moles/Vol] 3.8 mmol/L 3.5-5.1 [facility] Protein [Mass/Vol] 8.4 g/dL 6.4-8.2 [facility] Sodium [Moles/Vol] 136 mmol/L 136-145 [facility] WBC (Bld) [#/Vol] 8.6 10*3/uL 4.4-11.0 [facility] Blood erythrocytes count (nu mber/volume)Ordered By: Taiwo Chen on 06-26-2023 RBC (Bld) [#/Vol] 4.31 10*6/uL 4.2-5.4 [facility] Blood hemoglobin measurement (mass/volume)Ordered By: Taiwo Chen on 06-26-2023 Hemoglobin (Bld) [Mass/Vol] 11.6 g/dL 12.0-15.0 [facility] Blood lymphocytes/100 leukoc ytesOrdered By: Taiwo Chen on 06-26-2023 Lymphocytes/100 WBC (Bld) 30.6 % 19-41 [facility] Blood monocytes/100 leukocyt esOrdered By: Taiwo Chen on 06-26-2023 Monocytes/100 WBC (Bld) 4.3 % 0-10 [facility] Blood platelet mean volumeOr dered By: Taiwo Chen on 06-26-2023 Platelet mean volume (Bld) [Entitic vol] 9.3 fL 6.2-12.0 [facility] Determination of erythrocyte mean corpuscular volume (MCV)Ordered By: Taiwo Chen on 06-26-2023 MCV (RBC) [Entitic vol] 84.7 fL 81-99 [facility] Hematocrit Auto (Bld) [Volum e fraction]Ordered By: Taiwo Chen on 06-26-2023 Hematocrit (Bld) [Volume fraction] 36.5 % 37-47 [facility] Laboratory - Chemistry and C hemistry - challengeOrdered By: Taiwo Chen on 06-26-2023 ALP [Catalytic activity/Vol] 135 U/L 45-117 [facility] ALT [Catalytic activity/Vol] 15 U/L 13-56 [facility] CO2 [Moles/Vol] 26.0 mmol/L 21.0-32.0 [facility] Globulin (S) [Mass/Vol] 5.0 g/dL 2.2-4.2 [facility] Urea nitrogen/Creatinine [Mass ratio] 11.4 mg/mg 10-20 [facility] Laboratory - Hematology and Cell countsOrdered By: Taiwo Chen on 06-26-2023 Erythrocyte distribution width (RBC) [Entitic vol] 42.7 fL 35.1-43.9 [facility] Erythrocyte distribution width (RBC) [Ratio] 13.7 % 11.6-14.6 [facility] Immature granulocytes/100 WBC (Bld) 0.700 % 0.0-0.9 [facility] Comment on above: IG% - Immature Granu locytes (promyelocytes, myelocytes and metamyelocytes) > 1% indicates that a LEFT SHIFT is Present. MCH (RBC) [Entitic mass] 26.9 pg 27.0-32.0 [facility] Nucleated RBC/100 WBC (Bld) [Ratio] 0 % 0-5 [facility] MCHC Auto (RBC) [Mass/Vol]Or dered By: Taiwo Chen on 06-26-2023 MCHC (RBC) [Mass/Vol] 31.8 g/dL 32-36 [facility] No Panel InformationOrdered By: Taiwo Chen on 06-26-2023 Estimated Creatinine Clearance Calc 86.71 ml/min [facility] Estimated GFR (MDRD) Amer 97 mL/min >60 [facility] Comment on above: GFR Calc Estimated GFR (MDRD) Non-Af Amer 80 mL/min >60 [facility] Comment on above: Non- GFR Calc 26.9 pg 27.0-32.0 [facility] 13.7 % 11.6-14.6 [facility] 42.7 fl 35.1-43.9 [facility] 0.700 % 0.0-0.9 [facility] 0 % 0-5 [facility] 80 mL/min >60 [facility] 97 mL/min >60 [facility] 86.71 ml/min [facility] 11.4 RATIO 10-20 [facility] 5.0 g/dL 2.2-4.2 [facility] 135 U/L 45-117 [facility] 15 U/L 13-56 [facility] 26.0 mmol/L 21.0-32.0 [facility] Platelets bldOrdered By: Liss Chen on 06-26-2023 Platelets (Bld) [#/Vol] 464 10*3/uL 150-450 [facility] Serum or plasma albumin hussein urement (mass/volume)Ordered By: Taiwo Chen on 06-26-2023 Albumin [Mass/Vol] 3.4 g/dL 3.2-5.0 [facility] Serum or plasma albumin/glob ulin mass ratioOrdered By: Taiwo Chen on 06-26-2023 Albumin/Globulin [Mass ratio] 0.7 {ratio} 0.9-2.4 [facility] Serum or plasma calcium hussein urement (mass/volume)Ordered By: Taiwo Chen on 06-26-2023 Calcium [Mass/Vol] 9.5 mg/dL 8.5-10.1 [facility] Serum or plasma creatinine m easurement (mass/volume)Ordered By: Taiwo Chen on 06-26-2023 Creatinine [Mass/Vol] 0.88 mg/dL 0.55-1.02 [facility] Comment on above: The validity of the calculated GFR & GFRAA in patients over 70 years has not been determined. Clinical correlation is essential. Serum or plasma urea nitroge n measurement (mass/volume)Ordered By: Taiwo Chen on 06-26-2023 Urea nitrogen [Mass/Vol] 10 mg/dL 7-18 [facility] Thin prep Papanicolaou smear with manual screeningOrdered By: Taiwo Chen on 06-26-2023 Thin prep Papanicolaou smear with manual screening 8 U/L 15-37 [facility] Thin prep Papanicolaou smear with manual screening 8 5-15 [facility] Absolute lymphocyte countOrd ered By: Tesfaye Mitchell on 06-25-2023 Lymphocytes Auto (Unsp spec) [#/Vol] 2.74 10*3/uL 0.83-4.51 [facility] Basophil percentageOrdered B y: Tesfaye Mitchell on 06-25-2023 Basophil percentage 259 mg/dL 74-106 [facility] Basophil percentage 8.7 g/dL 6.4-8.2 [facility] Basophil percentage 0.40 mg/dL 0.20-1.00 [facility] Basophil percentage 137 mmol/L 136-145 [facility] Basophil percentage 4.0 mmol/L 3.5-5.1 [facility] Basophil percentage 103 mmol/L 98-107 [facility] Basophils (Bld) [#/Vol] 11.7 10*3/uL 4.4-11.0 [facility] Basophils (Bld) [#/Vol] 8.5 10*3/uL 2.0-7.7 [facility] Basophils/100 WBC (Bld) 0.4 % 0-1 [facility] Basophils/100 WBC (Bld) 72.6 % 47-70 [facility] Basophils/100 WBC (Bld) 0.0 % 0-5 [facility] Bilirubin [Mass/Vol] 0.40 mg/dL 0.20-1.00 [facility] Comment on above: For patients on eltr ombopag therapy, use of Dimension [place] TBIL is not recommended. Chloride [Moles/Vol] 103 mmol/L 98-107 [facility] Eosinophils/100 WBC (Bld) 0.0 % 0-5 [facility] Glucose [Mass/Vol] 259 mg/dL 74-106 [facility] Comment on above: Glucose result great er than or equal to 200 mg/dLsuggests DIABETES MELLITUS per A.D.A. criteria. Neutrophils (Bld) [#/Vol] 8.5 10*3/uL 2.0-7.7 [facility] Neutrophils/100 WBC (Bld) 72.6 % 47-70 [facility] Potassium [Moles/Vol] 4.0 mmol/L 3.5-5.1 [facility] Protein [Mass/Vol] 8.7 g/dL 6.4-8.2 [facility] Sodium [Moles/Vol] 137 mmol/L 136-145 [facility] WBC (Bld) [#/Vol] 11.7 10*3/uL 4.4-11.0 [facility] Basophil percentage 0-5 SEEN /hpf 0-5 [facility] Bilirubin Test strip Ql (U)O rdered By: Tesfaye Mitchell on 06-25-2023 Bilirubin Ql (U) Negative Negative [facility] Blood erythrocytes count (nu mber/volume)Ordered By: Tesfaye Mitchell on 06-25-2023 RBC (Bld) [#/Vol] 4.53 10*6/uL 4.2-5.4 [facility] Blood hemoglobin measurement (mass/volume)Ordered By: Tesfaye Mitchell on 06-25-2023 Hemoglobin (Bld) [Mass/Vol] 12.0 g/dL 12.0-15.0 [facility] Blood lymphocytes/100 leukoc ytesOrdered By: Tesfaye Mitchell on 06-25-2023 Lymphocytes/100 WBC (Bld) 23.5 % 19-41 [facility] Blood monocytes/100 leukocyt esOrdered By: Tesfaye Mitchell on 06-25-2023 Monocytes/100 WBC (Bld) 2.9 % 0-10 [facility] Blood platelet mean volumeOr dered By: Tesfaye Mitchell on 06-25-2023 Platelet mean volume (Bld) [Entitic vol] 9.1 fL 6.2-12.0 [facility] Determination of erythrocyte mean corpuscular volume (MCV)Ordered By: Tesfaye Mitchell on 06-25-2023 MCV (RBC) [Entitic vol] 84.3 fL 81-99 [facility] Hematocrit Auto (Bld) [Volum e fraction]Ordered By: Tesfaye Mitchell on 06-25-2023 Hematocrit (Bld) [Volume fraction] 38.2 % 37-47 [facility] Ketones Test strip Ql (U)Ord ered By: Tesfaye Mitchell on 06-25-2023 Ketones Ql (U) 15 mg/dl Negative [facility] Laboratory - Chemistry and C hemistry - challengeOrdered By: Tesfaye Mitchell on 06-25-2023 ALP [Catalytic activity/Vol] 156 U/L 45-117 [facility] ALT [Catalytic activity/Vol] 15 U/L 13-56 [facility] CO2 [Moles/Vol] 24.0 mmol/L 21.0-32.0 [facility] Globulin (S) [Mass/Vol] 5.4 g/dL 2.2-4.2 [facility] Lipase [Catalytic activity/Vol] 32 U/L 13-75 [facility] Comment on above: Please note:LIPASE r evised reference range effective 22. New Lipase methodology. Expected to produce lower values than the previous assay method. NEW Reference Range: 13 - 75 U/L Urea nitrogen/Creatinine [Mass ratio] 15.7 mg/mg 10-20 [facility] Laboratory - Drug toxicology Ordered By: Tesfaye Mitchell on 06-25-2023 Amphetamines Ql (U) Negative <1000 ng/mL [facility] Benzodiazepines Ql (U) Negative < 200 ng/mL [facility] Cannabinoids Screen Ql (U) Negative < 50 ng/mL [facility] Cocaine Ql (U) Negative < 300 ng/mL [facility] Opiates Ql (U) Negative < 300 ng/mL [facility] Laboratory - Hematology and Cell countsOrdered By: Tesfaye Mitchell on 06-25-2023 Erythrocyte distribution width (RBC) [Entitic vol] 42.4 fL 35.1-43.9 [facility] Erythrocyte distribution width (RBC) [Ratio] 13.7 % 11.6-14.6 [facility] Immature granulocytes/100 WBC (Bld) 0.600 % 0.0-0.9 [facility] Comment on above: IG% - Immature Granu locytes (promyelocytes, myelocytes and metamyelocytes) > 1% indicates that a LEFT SHIFT is Present. MCH (RBC) [Entitic mass] 26.5 pg 27.0-32.0 [facility] Nucleated RBC/100 WBC (Bld) [Ratio] 0 % 0-5 [facility] MCHC Auto (RBC) [Mass/Vol]Or dered By: Tesfaye Mitchell on 06-25-2023 MCHC (RBC) [Mass/Vol] 31.4 g/dL 32-36 [facility] Mucus LM Ql (Urine sed)Order ed By: Tesfaye Mtichell on 06-25-2023 Mucus Ql (Urine sed) 0 SEEN /hpf [facility] Nitrite Test strip Ql (U)Ord ered By: Tesfaye Mitchell on 06-25-2023 Nitrite Ql (U) Negative Negative [facility] No Panel InformationOrdered By: Tesfaye Mitchell on 06-25-2023 Estimated Creatinine Clearance Calc 91.94 ml/min [facility] Estimated GFR (MDRD) Amer 103 mL/min >60 [facility] Comment on above: GFR Calc Estimated GFR (MDRD) Non-Af Amer 85 mL/min >60 [facility] Comment on above: Non- GFR Calc 26.5 pg 27.0-32.0 [facility] 13.7 % 11.6-14.6 [facility] 42.4 fl 35.1-43.9 [facility] 0.600 % 0.0-0.9 [facility] 0 % 0-5 [facility] 85 mL/min >60 [facility] 103 mL/min >60 [facility] 91.94 ml/min [facility] 15.7 RATIO 10-20 [facility] 5.4 g/dL 2.2-4.2 [facility] 32 U/L 13-75 [facility] 156 U/L 45-117 [facility] 15 U/L 13-56 [facility] 24.0 mmol/L 21.0-32.0 [facility] MDMA (Ecstasy) Screen Positive < 500 ng/mL [facility] Urine Barbiturates Screen Negative < 200 ng/mL [facility] Urine Drug Screen Comment [facility] Comment on above: CONFIRMATORY TESTING FOR [...] Urine Methadone Screen Negative < 300 ng/mL [facility] Negative < 50 ng/mL [facility] Positive < 500 ng/mL [facility] Platelets bldOrdered By: Mauro Mitchell on 06-25-2023 Platelets (Bld) [#/Vol] 497 10*3/uL 150-450 [facility] Protein Test strip Ql (U)Ord ered By: Tesfaye Mitchell on 06-25-2023 Protein Ql (U) 30 mg/dl Negative [facility] Serum or plasma albumin hussein urement (mass/volume)Ordered By: Tesfaye Mitchell on 06-25-2023 Albumin [Mass/Vol] 3.3 g/dL 3.2-5.0 [facility] Serum or plasma albumin/glob ulin mass ratioOrdered By: Tesfaye Mitchell on 06-25-2023 Albumin/Globulin [Mass ratio] 0.6 {ratio} 0.9-2.4 [facility] Serum or plasma calcium hussein urement (mass/volume)Ordered By: Tesfaye Mitchell on 06-25-2023 Calcium [Mass/Vol] 9.6 mg/dL 8.5-10.1 [facility] Serum or plasma creatinine m easurement (mass/volume)Ordered By: Tesfaye Mitchell on 06-25-2023 Creatinine [Mass/Vol] 0.83 mg/dL 0.55-1.02 [facility] Comment on above: The validity of the calculated GFR & GFRAA in patients over 70 years has not been determined. Clinical correlation is essential. Serum or plasma urea nitroge n measurement (mass/volume)Ordered By: Tesfaye Mitchell on 06-25-2023 Urea nitrogen [Mass/Vol] 13 mg/dL 7-18 [facility] Squamous epithelial cells de tection in urine sediment by light microscopyOrdered By: Tesfaye Mitchell on 06-25-2023 Epithelial cells.squamous LM Ql (Urine sed) 5-10 SEEN /hpf 5-10 [facility] Thin prep Papanicolaou smear with manual screeningOrdered By: Tesfaye Mitchell on 06-25-2023 Thin prep Papanicolaou smear with manual screening 14 U/L 15-37 [facility] Thin prep Papanicolaou smear with manual screening 10 5-15 [facility] Urine blood detectionOrdered By: Tesfaye Mitchell on 06-25-2023 RBC Ql (U) 250 /ul Negative [facility] RBC Ql (U) > 100 SEEN /hpf 0-5 [facility] Urine clarityOrdered By: Mauro Mitchell on 06-25-2023 Clarity (U) Sl. Cloudy Clear [facility] Urine color determinationOrd ered By: Tesfaye Mitchell on 06-25-2023 Color (U) Yellow Yellow [facility] Urine glucose detectionOrder ed By: Tesfaye Mitchell on 06-25-2023 Glucose Ql (U) 250 mg/dl Normal [facility] Urine leukocyte esterase det ection by dipstickOrdered By: Tesfaye Mitchell on 06-25-2023 Leukocyte esterase Test strip Ql (U) 25 /ul Negative [facility] Urine pHOrdered By: Tesfaye figueroa on 06-25-2023 pH (U) 7.0 [pH] 5.0 - 8.0 [facility] Urine phencyclidine (PCP) de tectionOrdered By: Tesfaye Mitchell on 06-25-2023 Phencyclidine Ql (U) Negative < 25 ng/mL [facility] Urine sediment bacteria coun t by microscopy (number/high power field)Ordered By: Tesfaye Mitchell on 06-25-2023 Bacteria LM.HPF (Urine sed) [#/Area] 0 /[HPF] None Seen [facility] Urine specific gravity measu rementOrdered By: Tesfaye Mitchell on 06-25-2023 Specific gravity (U) [Rel density] 1.010 1.002-1.030 [facility] Urobilinogen Auto test strip Ql (U)Ordered By: Tesfaye Mitchell on 06-25-2023 Urobilinogen Ql (U) Normal mg/dl Normal [facility] Anaerobic cultureOrdered By: Stephan Forrest on 05-18-2023 Bacteria identified Anaer cx Nom (Unsp spec) No anaerobic bacteria isolated. [facility] Bacteria identified Cx Nom ( Wound)Ordered By: Stephan Forrest on 05-18-2023 Wound Culture Meth. resistant Stap h. aureus [facility] Routine wound culture Meth. resistant St aph. aureus [facility] Fungus cultureOrdered By: Neva Forrest on 05-18-2023 Fungus identified Cx Nom (Unsp spec) [facility] Gram stain for investigation of transfusion reactionOrdered By: Stephan Forrest on 05-18-2023 Microscopic observation Gram stain Nom (Unsp spec) [facility] Glucose Glucometer (BldC) [M ass/Vol]Ordered By: Rickey Gifford on 05-09-2023 Glucose [Mass/Vol] 157 mg/dL 74-106 [facility] Comment on above: MANAGEMENT OF PATIEN T CARE PER NURSING PROTOCOL Basophil percentageOrdered B y: Rickey Gifford on 05-07-2023 Basophil percentage 161 mg/dL 74-106 [facility] Basophil percentage 138 mmol/L 136-145 [facility] Basophil percentage 4.0 mmol/L 3.5-5.1 [facility] Basophil percentage 108 mmol/L 98-107 [facility] Chloride [Moles/Vol] 108 mmol/L 98-107 [facility] Glucose [Mass/Vol] 161 mg/dL 74-106 [facility] Comment on above: Fasting Glucose resu lt greater than or equal to 126 mg/dL suggests DIABETES MELLITUS per A.D.A. criteria. Potassium [Moles/Vol] 4.0 mmol/L 3.5-5.1 [facility] Sodium [Moles/Vol] 138 mmol/L 136-145 [facility] Laboratory - Chemistry and C hemistry - challengeOrdered By: Rickey Gifford on 05-07-2023 CO2 [Moles/Vol] 26.0 mmol/L 21.0-32.0 [facility] Urea nitrogen/Creatinine [Mass ratio] 17.1 mg/mg 10- [facility] No Panel InformationOrdered By: Rickey Gifford on 05-07-2023 Estimated Creatinine Clearance Calc 131.56 ml/min [facility] Estimated GFR (MDRD) Amer 154 mL/min >60 [facility] Comment on above: GFR Calc Estimated GFR (MDRD) Non-Af Amer 127 mL/min >60 [facility] Comment on above: Non- GFR Calc 127 mL/min >60 [facility] 154 mL/min >60 [facility] 131.56 ml/min [facility] 17.1 RATIO 10-20 [facility] 26.0 mmol/L 21.0-32.0 [facility] Serum or plasma calcium hussein urement (mass/volume)Ordered By: Rickey Gifford on 05-07-2023 Calcium [Mass/Vol] 8.4 mg/dL 8.5-10.1 [facility] Serum or plasma creatinine m easurement (mass/volume)Ordered By: Rickey Gifford on 05-07-2023 Creatinine [Mass/Vol] 0.58 mg/dL 0.55-1.02 [facility] Comment on above: The validity of the calculated GFR & GFRAA in patients over 70 years has not been determined. Clinical correlation is essential. Serum or plasma urea nitroge n measurement (mass/volume)Ordered By: Rickey Gifford on 05-07-2023 Urea nitrogen [Mass/Vol] 10 mg/dL 7-18 [facility] Thin prep Papanicolaou smear with manual screeningOrdered By: Rickey Gifford on 05-07-2023 Thin prep Papanicolaou smear with manual screening 4 5-15 [facility] Absolute lymphocyte countOrd ered By: Rickey Gifford on 05-06-2023 Lymphocytes Auto (Unsp spec) [#/Vol] 2.89 10*3/uL 0.83-4.51 [facility] Basophil percentageOrdered B y: Rickey Gifford on 05-06-2023 Basophils (Bld) [#/Vol] 5.8 10*3/uL 4.4-11.0 [facility] Basophils (Bld) [#/Vol] 2.4 10*3/uL 2.0-7.7 [facility] Basophils/100 WBC (Bld) 40.5 % 47-70 [facility] Basophils/100 WBC (Bld) 0.3 % 0-5 [facility] Basophils/100 WBC (Bld) 0.5 % 0-1 [facility] Eosinophils/100 WBC (Bld) 0.3 % 0-5 [facility] Neutrophils (Bld) [#/Vol] 2.4 10*3/uL 2.0-7.7 [facility] Neutrophils/100 WBC (Bld) 40.5 % 47-70 [facility] WBC (Bld) [#/Vol] 5.8 10*3/uL 4.4-11.0 [facility] Blood erythrocytes count (nu mber/volume)Ordered By: Rickey Gifford on 05-06-2023 RBC (Bld) [#/Vol] 3.54 10*6/uL 4.2-5.4 [facility] Blood hemoglobin measurement (mass/volume)Ordered By: Rickey Gifford on 05-06-2023 Hemoglobin (Bld) [Mass/Vol] 10.1 g/dL 12.0-15.0 [facility] Blood lymphocytes/100 leukoc ytesOrdered By: Rickey Gifford on 05-06-2023 Lymphocytes/100 WBC (Bld) 49.6 % 19-41 [facility] Blood monocytes/100 leukocyt esOrdered By: Rickey Gifford on 05-06-2023 Monocytes/100 WBC (Bld) 8.4 % 0-10 [facility] Blood platelet mean volumeOr dered By: Rickey Gifford on 05-06-2023 Platelet mean volume (Bld) [Entitic vol] 9.4 fL 6.2-12.0 [facility] Determination of erythrocyte mean corpuscular volume (MCV)Ordered By: Rickey Gifford on 05-06-2023 MCV (RBC) [Entitic vol] 92.7 fL 81-99 [facility] Hematocrit Auto (Bld) [Volum e fraction]Ordered By: Rickey Gifford on 05-06-2023 Hematocrit (Bld) [Volume fraction] 32.8 % 37-47 [facility] - Hematology and Cell countsOrdered By: Rickey Gifford on 05-06-2023 Erythrocyte distribution width (RBC) [Entitic vol] 54.6 fL 35.1-43.9 [facility] Erythrocyte distribution width (RBC) [Ratio] 15.9 % 11.6-14.6 [facility] Immature granulocytes/100 WBC (Bld) 0.700 % 0.0-0.9 [facility] Comment on above: IG% - Immature Granu locytes (promyelocytes, myelocytes and metamyelocytes) > 1% indicates that a LEFT SHIFT is Present. MCH (RBC) [Entitic mass] 28.5 pg 27.0-32.0 [facility] Nucleated RBC/100 WBC (Bld) [Ratio] 0 % 0-5 [facility] MCHC Auto (RBC) [Mass/Vol]Or dered By: Rickey Gifford on 05-06-2023 MCHC (RBC) [Mass/Vol] 30.8 g/dL 32-36 [facility] No Panel InformationOrdered By: Rickey Gifford on 05-06-2023 28.5 pg 27.0-32.0 [facility] 15.9 % 11.6-14.6 [facility] 54.6 fl 35.1-43.9 [facility] 0.700 % 0.0-0.9 [facility] 0 % 0-5 [facility] Platelets bldOrdered By: Ivy Gifford on 05-06-2023 Platelets (Bld) [#/Vol] 317 10*3/uL 150-450 [facility] Serum or plasma trough vanco mycin levelOrdered By: Rickey Gifford on 05-05-2023 Vancomycin trough [Mass/Vol] 15.1 ug/mL 5.0-15.0 [facility] Comment on above: VANCOMYCIN STANDARED DRUG THERAPY TROUGH LEVEL: 5.0 - 15.0 mg/L VANCOMYCIN HIGH INTENSITY THERAPY TROUGH LEVEL: 15.0 - 20.0 mg/L High Intensity therapy recommended for serious lifethreatening infections include:- Ofvfyipadn-Ruibrvlitksf-Yeeqzuldy (Ventilator/Healtcare Associated)-Sepsis PLEASE CONTACT PHARMACY SERVICES (#6086) FOR INTERPRETATIONOF RESULTS. Absolute lymphocyte countOrd ered By: Javy Doss on 05-04-2023 Lymphocytes Auto (Unsp spec) [#/Vol] 1.65 10*3/uL 0.83-4.51 [facility] Bacteria identified Anaer cx Nom (Unsp spec)Ordered By: Stephan Forrest on 05-04-2023 Anaerobic Culture Bacteroides fragilis [facility] Bacteria identified Cx Nom ( Wound)Ordered By: Stephan Forrest on 05-04-2023 Wound Culture Streptococcus dysgalactiae dys [facility] Routine wound culture Streptococcus dysgalactiae dys [facility] Basophil percentageOrdered B y: Javy Doss on 05-04-2023 Basophil percentage 207 mg/dL 74-106 [facility] Basophil percentage 133 mmol/L 136-145 [facility] Basophil percentage 3.8 mmol/L 3.5-5.1 [facility] Basophil percentage 102 mmol/L 98-107 [facility] Basophil percentage 1.9 mmol/L 0.4-2.0 [facility] Basophils (Bld) [#/Vol] 11.1 10*3/uL 4.4-11.0 [facility] Basophils (Bld) [#/Vol] 8.1 10*3/uL 2.0-7.7 [facility] Basophils/100 WBC (Bld) 73.2 % 47-70 [facility] Basophils/100 WBC (Bld) 0.0 % 0-5 [facility] Basophils/100 WBC (Bld) 0.4 % 0-1 [facility] Lactate [Moles/Vol] 1.9 mmol/L 0.4-2.0 [facility] Blood erythrocytes count (nu mber/volume)Ordered By: Javy Doss on 05-04-2023 RBC (Bld) [#/Vol] 3.68 10*6/uL 4.2-5.4 [facility] Blood hemoglobin measurement (mass/volume)Ordered By: Javy Doss on 05-04-2023 Hemoglobin (Bld) [Mass/Vol] 10.5 g/dL 12.0-15.0 [facility] Blood lymphocytes/100 leukoc ytesOrdered By: Javy Doss on 05-04-2023 Lymphocytes/100 WBC (Bld) 14.9 % 19-41 [facility] Blood monocytes/100 leukocyt esOrdered By: Javy Doss on 05-04-2023 Monocytes/100 WBC (Bld) 10.2 % 0-10 [facility] Blood platelet mean volumeOr dered By: Javy Doss on 05-04-2023 Platelet mean volume (Bld) [Entitic vol] 9.2 fL 6.2-12.0 [facility] Determination of erythrocyte mean corpuscular volume (MCV)Ordered By: Javy Doss on 05-04-2023 MCV (RBC) [Entitic vol] 89.1 fL 81-99 [facility] Erythrocyte sedimentation ra teOrdered By: Stephan Forrest on 05-04-2023 ESR (Bld) [Velocity] 88 mm/h 0-30 [facility] Fungus cultureOrdered By: Neva Forrest on 05-04-2023 Fungus identified Cx Nom (Unsp spec) [facility] Fungus stainOrdered By: Jonas Forrest on 05-04-2023 Fungus identified Fungus stain Nom (Unsp spec) [facility] Gram stain for investigation of transfusion reactionOrdered By: Stephan Forrest on 05-04-2023 Microscopic observation Gram stain Nom (Unsp spec) [facility] Microscopic observation Gram stain Nom (Unsp spec) [facility] Hematocrit Auto (Bld) [Volum e fraction]Ordered By: Javy Doss on 05-04-2023 Hematocrit (Bld) [Volume fraction] 32.8 % 37-47 [facility] Laboratory - Chemistry and C hemistry - challengeOrdered By: Ronald Hilario on 05-04-2023 HCG ( test) Ql (U) Negative [facility] Comment on above: Very dilute urine sp ecimens, as indicated by a low specificgravity, may not contain small business representative levels of hCG. If is still suspected, a first morning urinespecimen should be collected 48 hours later and tested. Laboratory - Microbiology an d Antimicrobial susceptibilityOrdered By: Javy Doss on 05-04-2023 Bacteria identified Cx Nom (Bld) No growth in 5 days. [facility] MCHC Auto (RBC) [Mass/Vol]Or dered By: Javy Doss on 05-04-2023 MCHC (RBC) [Mass/Vol] 32.0 g/dL 32-36 [facility] No Panel InformationOrdered By: Ronald Hilario on 05-04-2023 Negative [facility] No Panel InformationOrdered By: Javy Doss on 05-04-2023 No growth in 5 days. [facility] 28.5 pg 27.0-32.0 [facility] 15.9 % 11.6-14.6 [facility] 52.3 fl 35.1-43.9 [facility] 1.300 % 0.0-0.9 [facility] 0 % 0-5 [facility] 100 mL/min >60 [facility] 121 mL/min >60 [facility] 105.98 ml/min [facility] 12.5 RATIO 10-20 [facility] 27.0 mmol/L 21.0-32.0 [facility] Platelets bldOrdered By: Haylee Doss on 05-04-2023 Platelets (Bld) [#/Vol] 333 10*3/uL 150-450 [facility] Serum or plasma C reactive p rotein measurement (mass/volume)Ordered By: Stephan Forrest on 05-04-2023 CRP [Mass/Vol] 117.00 mg/L 0.0-3.0 [facility] Comment on above: C-Reactive Protein ( CRP) provides useful information for thediagnosis, therapy and monitoring of inflammatory processesand associated diseases. For the evaluation of Relative Riskfor Cardiovascular Disease, a High Sensitivity CRP (HSCRP)should be ordered. Serum or plasma calcium hussein urement (mass/volume)Ordered By: Javy Doss on 05-04-2023 Calcium [Mass/Vol] 8.7 mg/dL 8.5-10.1 [facility] Serum or plasma creatinine m easurement (mass/volume)Ordered By: Javy Doss on 05-04-2023 Creatinine [Mass/Vol] 0.72 mg/dL 0.55-1.02 [facility] Serum or plasma urea nitroge n measurement (mass/volume)Ordered By: Javy Doss on 05-04-2023 Urea nitrogen [Mass/Vol] 9 mg/dL 7-18 [facility] Thin prep Papanicolaou smear with manual screeningOrdered By: Javy Doss on 05-04-2023 Thin prep Papanicolaou smear with manual screening 4 5-15 [facility] Whole blood hemoglobin A1c/t otal hemoglobin ratio (mass fraction)Ordered By: Stephan Forrest on 05-04-2023 HbA1c (Bld) [Mass fraction] 7.2 % 3.8-5.6 [facility] Comment on above: Normal < 5.7 % Predi abetic 5.7 - 6.4 % Diabetic >or= 6.5 % Please note range changes. Absolute lymphocyte countOrd ered By: Deann Guerrero on 04-14-2023 Lymphocytes Auto (Unsp spec) [#/Vol] 3.05 10*3/uL 0.83-4.51 [facility] Basophil percentageOrdered B y: Deann Guerrero on 04-14-2023 Basophil percentage 179 mg/dL 74-106 [facility] Basophil percentage 8.2 g/dL 6.4-8.2 [facility] Basophil percentage 0.60 mg/dL 0.20-1.00 [facility] Basophil percentage 135 mmol/L 136-145 [facility] Basophil percentage 3.6 mmol/L 3.5-5.1 [facility] Basophil percentage 103 mmol/L 98-107 [facility] Basophils (Bld) [#/Vol] 7.8 10*3/uL 4.4-11.0 [facility] Basophils (Bld) [#/Vol] 4.1 10*3/uL 2.0-7.7 [facility] Basophils/100 WBC (Bld) 52.8 % 47-70 [facility] Basophils/100 WBC (Bld) 0.3 % 0-5 [facility] Basophils/100 WBC (Bld) 0.5 % 0-1 [facility] Bilirubin [Mass/Vol] 0.60 mg/dL 0.20-1.00 [facility] Comment on above: For patients on eltr ombopag therapy, use of Dimension [place] TBIL is not recommended. Chloride [Moles/Vol] 103 mmol/L 98-107 [facility] Eosinophils/100 WBC (Bld) 0.3 % 0-5 [facility] Glucose [Mass/Vol] 179 mg/dL 74-106 [facility] Comment on above: Fasting Glucose resu lt greater than or equal to 126 mg/dL suggests DIABETES MELLITUS per A.D.A. criteria. Neutrophils (Bld) [#/Vol] 4.1 10*3/uL 2.0-7.7 [facility] Neutrophils/100 WBC (Bld) 52.8 % 47-70 [facility] Potassium [Moles/Vol] 3.6 mmol/L 3.5-5.1 [facility] Protein [Mass/Vol] 8.2 g/dL 6.4-8.2 [facility] Sodium [Moles/Vol] 135 mmol/L 136-145 [facility] WBC (Bld) [#/Vol] 7.8 10*3/uL 4.4-11.0 [facility] Blood erythrocytes count (nu mber/volume)Ordered By: Deann Guerrero on 04-14-2023 RBC (Bld) [#/Vol] 4.57 10*6/uL 4.2-5.4 [facility] Blood hemoglobin measurement (mass/volume)Ordered By: Deann Guerrero on 04-14-2023 Hemoglobin (Bld) [Mass/Vol] 12.8 g/dL 12.0-15.0 [facility] Blood lymphocytes/100 leukoc ytesOrdered By: Deann Guerrero on 04-14-2023 Lymphocytes/100 WBC (Bld) 39.3 % 19-41 [facility] Blood monocytes/100 leukocyt esOrdered By: Deann Guerrero on 04-14-2023 Monocytes/100 WBC (Bld) 6.1 % 0-10 [facility] Blood platelet mean volumeOr dered By: Deann Guerrero on 04-14-2023 Platelet mean volume (Bld) [Entitic vol] 8.3 fL 6.2-12.0 [facility] Determination of erythrocyte mean corpuscular volume (MCV)Ordered By: Deann Guerrero on 04-14-2023 MCV (RBC) [Entitic vol] 87.7 fL 81-99 [facility] Direct bilirubinOrdered By: Deann Guerrero on 04-14-2023 Bilirubin.direct [Mass/Vol] 0.16 mg/dL 0.00-0.30 [facility] Hematocrit Auto (Bld) [Volum e fraction]Ordered By: Deann Guerrero on 04-14-2023 Hematocrit (Bld) [Volume fraction] 40.1 % 37-47 [facility] Laboratory - Chemistry and C hemistry - challengeOrdered By: Deann Guerrero on 04-14-2023 ALP [Catalytic activity/Vol] 111 U/L 45-117 [facility] ALT [Catalytic activity/Vol] 23 U/L 13-56 [facility] CO2 [Moles/Vol] 25.0 mmol/L 21.0-32.0 [facility] Globulin (S) [Mass/Vol] 5.0 g/dL 2.2-4.2 [facility] Lipase [Catalytic activity/Vol] 80 U/L 13-75 [facility] Comment on above: Please note:LIPASE r evised reference range effective 22. New Lipase methodology. Expected to produce lower values than the previous assay method. NEW Reference Range: 13 - 75 U/L Urea nitrogen/Creatinine [Mass ratio] 9.6 mg/mg 10-20 [facility] Laboratory - Hematology and Cell countsOrdered By: Deann Guerrero on 04-14-2023 Erythrocyte distribution width (RBC) [Entitic vol] 48.6 fL 35.1-43.9 [facility] Erythrocyte distribution width (RBC) [Ratio] 16.4 % 11.6-14.6 [facility] Immature granulocytes/100 WBC (Bld) 1.000 % 0.0-0.9 [facility] Comment on above: IG% - Immature Granu locytes (promyelocytes, myelocytes and metamyelocytes) > 1% indicates that a LEFT SHIFT is Present. MCH (RBC) [Entitic mass] 28.0 pg 27.0-32.0 [facility] Nucleated RBC/100 WBC (Bld) [Ratio] 0 % 0-5 [facility] MCHC Auto (RBC) [Mass/Vol]Or dered By: Deann Guerrero on 04-14-2023 MCHC (RBC) [Mass/Vol] 31.9 g/dL 32-36 [facility] No Panel InformationOrdered By: Deann Guerrero on 04-14-2023 Estimated Creatinine Clearance Calc 73.37 ml/min [facility] Estimated GFR (MDRD) Amer 79 mL/min >60 [facility] Comment on above: GFR Calc Estimated GFR (MDRD) Non-Af Amer 66 mL/min >60 [facility] Comment on above: Non- GFR Calc 28.0 pg 27.0-32.0 [facility] 16.4 % 11.6-14.6 [facility] 48.6 fl 35.1-43.9 [facility] 1.000 % 0.0-0.9 [facility] 0 % 0-5 [facility] 66 mL/min >60 [facility] 79 mL/min >60 [facility] 73.37 ml/min [facility] 9.6 RATIO 10-20 [facility] 5.0 g/dL 2.2-4.2 [facility] 80 U/L 13-75 [facility] 111 U/L 45-117 [facility] 23 U/L 13-56 [facility] 25.0 mmol/L 21.0-32.0 [facility] Platelets bldOrdered By: Sulema Guerrero on 04-14-2023 Platelets (Bld) [#/Vol] 565 10*3/uL 150-450 [facility] Serum or plasma albumin hussein urement (mass/volume)Ordered By: Deann Guerrero on 04-14-2023 Albumin [Mass/Vol] 3.2 g/dL 3.2-5.0 [facility] Serum or plasma calcium hussein urement (mass/volume)Ordered By: Deann Guerrero on 04-14-2023 Calcium [Mass/Vol] 9.5 mg/dL 8.5-10.1 [facility] Serum or plasma creatinine m easurement (mass/volume)Ordered By: Deann Guerrero on 04-14-2023 Creatinine [Mass/Vol] 1.04 mg/dL 0.55-1.02 [facility] Comment on above: The validity of the calculated GFR & GFRAA in patients over 70 years has not been determined. Clinical correlation is essential. Serum or plasma urea nitroge n measurement (mass/volume)Ordered By: Deann Guerrero on 04-14-2023 Urea nitrogen [Mass/Vol] 10 mg/dL 7-18 [facility] Thin prep Papanicolaou smear with manual screeningOrdered By: Deann Guerrero on 04-14-2023 Thin prep Papanicolaou smear with manual screening 13 U/L 15-37 [facility] Thin prep Papanicolaou smear with manual screening 7 5-15 [facility] Absolute lymphocyte countOrd ered By: Poli Barfield on 04-13-2023 Lymphocytes Auto (Unsp spec) [#/Vol] 3.04 10*3/uL 0.83-4.51 [facility] Basophil percentageOrdered B y: Poli Barfield on 04-13-2023 Basophil percentage 280 mg/dL 74-106 [facility] Basophil percentage 7.8 g/dL 6.4-8.2 [facility] Basophil percentage 0.60 mg/dL 0.20-1.00 [facility] Basophil percentage 132 mmol/L 136-145 [facility] Basophil percentage 4.0 mmol/L 3.5-5.1 [facility] Basophil percentage 100 mmol/L 98-107 [facility] Basophils (Bld) [#/Vol] 8.7 10*3/uL 4.4-11.0 [facility] Basophils (Bld) [#/Vol] 5.1 10*3/uL 2.0-7.7 [facility] Basophils/100 WBC (Bld) 58.8 % 47-70 [facility] Basophils/100 WBC (Bld) 0.1 % 0-5 [facility] Basophils/100 WBC (Bld) 0.6 % 0-1 [facility] Bilirubin [Mass/Vol] 0.60 mg/dL 0.20-1.00 [facility] Comment on above: For patients on eltr ombopag therapy, use of Dimension [place] TBIL is not recommended. Chloride [Moles/Vol] 100 mmol/L 98-107 [facility] Eosinophils/100 WBC (Bld) 0.1 % 0-5 [facility] Glucose [Mass/Vol] 280 mg/dL 74-106 [facility] Comment on above: Glucose result great er than or equal to 200 mg/dLsuggests DIABETES MELLITUS per A.D.A. criteria. Neutrophils (Bld) [#/Vol] 5.1 10*3/uL 2.0-7.7 [facility] Neutrophils/100 WBC (Bld) 58.8 % 47-70 [facility] Potassium [Moles/Vol] 4.0 mmol/L 3.5-5.1 [facility] Protein [Mass/Vol] 7.8 g/dL 6.4-8.2 [facility] Sodium [Moles/Vol] 132 mmol/L 136-145 [facility] WBC (Bld) [#/Vol] 8.7 10*3/uL 4.4-11.0 [facility] Beta hCG serum qualOrdered B y: Poli Barfield on 04-13-2023 Beta HCG ( test) Ql Negative [facility] Blood erythrocytes count (nu mber/volume)Ordered By: Poli Barfield on 04-13-2023 RBC (Bld) [#/Vol] 4.42 10*6/[facility]L [facility]2-5[facility]4 [facility] hemoglobin measurement (mass/volume)Ordered By: Poli Barfield on 04-13-2023 Hemoglobin (Bld) [Mass/Vol] 12.6 g/dL 12.0-15.0 [facility] Blood lymphocytes/100 leukoc ytesOrdered By: Poli Barfield on 04-13-2023 Lymphocytes/100 WBC (Bld) 35.1 % 19-41 [facility] Blood monocytes/100 leukocyt esOrdered By: Poli Barfield on 04-13-2023 Monocytes/100 WBC (Bld) 4.6 % 0-10 [facility] Blood platelet mean volumeOr dered By: Poli Barfield on 04-13-2023 Platelet mean volume (Bld) [Entitic vol] 8.3 fL 6.2-12.0 [facility] Determination of erythrocyte mean corpuscular volume (MCV)Ordered By: Poli Barfield on 04-13-2023 MCV (RBC) [Entitic vol] 87.3 fL 81-99 [facility] Hematocrit Auto (Bld) [Volum e fraction]Ordered By: Poli Barfield on 04-13-2023 Hematocrit (Bld) [Volume fraction] 38.6 % 37-47 [facility] Laboratory - Chemistry and C hemistry - challengeOrdered By: Poli Barfield on 04-13-2023 ALP [Catalytic activity/Vol] 114 U/L 45-117 [facility] ALT [Catalytic activity/Vol] 23 U/L 13-56 [facility] CO2 [Moles/Vol] 24.0 mmol/L 21.0-32.0 [facility] Globulin (S) [Mass/Vol] 4.8 g/dL 2.2-4.2 [facility] Lipase [Catalytic activity/Vol] 98 U/L 13-75 [facility] Comment on above: Please note:LIPASE r evised reference range effective 22. New Lipase methodology. Expected to produce lower values than the previous assay method. NEW Reference Range: 13 - 75 U/L Urea nitrogen/Creatinine [Mass ratio] 9.4 mg/mg - [facility] Laboratory - Hematology and Cell countsOrdered By: Poli Barfield on 04-13-2023 Erythrocyte distribution width (RBC) [Entitic vol] 47.7 fL 35.1-43.9 [facility] Erythrocyte distribution width (RBC) [Ratio] 16.6 % 11.6-14.6 [facility] Immature granulocytes/100 WBC (Bld) 0.800 % 0.0-0.9 [facility] Comment on above: IG% - Immature Granu locytes (promyelocytes, myelocytes and metamyelocytes) > 1% indicates that a LEFT SHIFT is Present. MCH (RBC) [Entitic mass] 28.5 pg 27.0-32.0 [facility] Nucleated RBC/100 WBC (Bld) [Ratio] 0 % 0-5 [facility] MCHC Auto (RBC) [Mass/Vol]Or dered By: Poli Barfield on 04-13-2023 MCHC (RBC) [Mass/Vol] 32.6 g/dL 32-36 [facility] No Panel InformationOrdered By: Poli Barfield on 04-13-2023 Estimated Creatinine Clearance Calc 59.62 ml/min [facility] Estimated GFR (MDRD) Amer 63 mL/min >60 [facility] Comment on above: GFR Calc Estimated GFR (MDRD) Non-Af Amer 52 mL/min >60 [facility] Comment on above: Non- GFR Calc 28.5 pg 27.0-32.0 [facility] 16.6 % 11.6-14.6 [facility] 47.7 fl 35.1-43.9 [facility] 0.800 % 0.0-0.9 [facility] 0 % 0-5 [facility] 52 mL/min >60 [facility] 63 mL/min >60 [facility] 59.62 ml/min [facility] 9.4 RATIO 04-30 [facility] 4.8 g/dL 2.2-4.2 [facility] 98 U/L 13-75 [facility] 114 U/L 45-117 [facility] 23 U/L 13-56 [facility] 24.0 mmol/L 21.0-32.0 [facility] Platelets bldOrdered By: Devon Barfield on 04-13-2023 Platelets (Bld) [#/Vol] 542 10*3/uL 150-450 [facility] Serum or plasma albumin hussein urement (mass/volume)Ordered By: Poli Barfield on 04-13-2023 Albumin [Mass/Vol] 3.0 g/dL 3.2-5.0 [facility] Serum or plasma albumin/glob ulin mass ratioOrdered By: Poli Barfield on 04-13-2023 Albumin/Globulin [Mass ratio] 0.6 {ratio} 0.9-2.4 [facility] Serum or plasma calcium hussein urement (mass/volume)Ordered By: Poli Barfield on 04-13-2023 Calcium [Mass/Vol] 9.5 mg/dL 8.5-10.1 [facility] Serum or plasma creatinine m easurement (mass/volume)Ordered By: Poli Barfield on 04-13-2023 Creatinine [Mass/Vol] 1.28 mg/dL 0.55-1.02 [facility] Comment on above: The validity of the calculated GFR & GFRAA in patients over 70 years has not been determined. Clinical correlation is essential. Serum or plasma urea nitroge n measurement (mass/volume)Ordered By: Poli Barfield on 04-13-2023 Urea nitrogen [Mass/Vol] 12 mg/dL 7-18 [facility] Thin prep Papanicolaou smear with manual screeningOrdered By: Poli Barfield on 04-13-2023 Thin prep Papanicolaou smear with manual screening 17 U/L 15-37 [facility] Thin prep Papanicolaou smear with manual screening 8 5-15 [facility] Absolute lymphocyte countOrd ered By: Rickey Shepard on 03-06-2023 Lymphocytes Auto (Unsp spec) [#/Vol] 3.14 10*3/uL 0.83-4.51 [facility] Basophil percentageOrdered B y: Rickey Shepard on 03-06-2023 Basophil percentage 215 mg/dL 74-106 [facility] Basophil percentage 8.4 g/dL 6.4-8.2 [facility] Basophil percentage 0.50 mg/dL 0.20-1.00 [facility] Basophil percentage 134 mmol/L 136-145 [facility] Basophil percentage 3.1 mmol/L 3.5-5.1 [facility] Basophil percentage 101 mmol/L 98-107 [facility] Basophil percentage 2.2 mmol/L 0.4-2.0 [facility] Basophils (Bld) [#/Vol] 10.9 10*3/uL 4.4-11.0 [facility] Basophils (Bld) [#/Vol] 6.9 10*3/uL 2.0-7.7 [facility] Basophils/100 WBC (Bld) 62.8 % 47-70 [facility] Basophils/100 WBC (Bld) 0.2 % 0-5 [facility] Basophils/100 WBC (Bld) 0.4 % 0-1 [facility] Bilirubin [Mass/Vol] 0.50 mg/dL 0.20-1.00 [facility] Comment on above: For patients on eltr ombopag therapy, use of Dimension [place] TBIL is not recommended. Chloride [Moles/Vol] 101 mmol/L 98-107 [facility] Eosinophils/100 WBC (Bld) 0.2 % 0-5 [facility] Glucose [Mass/Vol] 215 mg/dL 74-106 [facility] Comment on above: Glucose result great er than or equal to 200 mg/dLsuggests DIABETES MELLITUS per A.D.A. criteria. Lactate [Moles/Vol] 2.2 mmol/L 0.4-2.0 [facility] Comment on above: Critical Result(s) C alled at: 09:58:40 03/06/2023 by: Gayathri Wilhelm. Results read back by same. Neutrophils (Bld) [#/Vol] 6.9 10*3/uL 2.0-7.7 [facility] Neutrophils/100 WBC (Bld) 62.8 % 47-70 [facility] Potassium [Moles/Vol] 3.1 mmol/L 3.5-5.1 [facility] Protein [Mass/Vol] 8.4 g/dL 6.4-8.2 [facility] Sodium [Moles/Vol] 134 mmol/L 136-145 [facility] WBC (Bld) [#/Vol] 10.9 10*3/uL 4.4-11.0 [facility] Basophil percentage 0 SEEN /hpf 0-5 [facility] Bilirubin Test strip Ql (U)O rdered By: Rickey Shepard on 03-06-2023 Bilirubin Ql (U) Negative Negative [facility] Blood erythrocytes count (nu mber/volume)Ordered By: Rickey Shepard on 03-06-2023 RBC (Bld) [#/Vol] 4.33 10*6/uL 4.2-5.4 [facility] Blood hemoglobin measurement (mass/volume)Ordered By: Rickey Shepard on 03-06-2023 Hemoglobin (Bld) [Mass/Vol] 11.5 g/dL 12.0-15.0 [facility] Blood lymphocytes/100 leukoc ytesOrdered By: Rickey Shepard on 03-06-2023 Lymphocytes/100 WBC (Bld) 28.8 % 19-41 [facility] Blood monocytes/100 leukocyt esOrdered By: Rickey Shepard on 03-06-2023 Monocytes/100 WBC (Bld) 7.2 % 0-10 [facility] Blood platelet mean volumeOr dered By: Rickey Shepard on 03-06-2023 Platelet mean volume (Bld) [Entitic vol] 9.2 fL 6.2-12.0 [facility] Determination of erythrocyte mean corpuscular volume (MCV)Ordered By: Rickey Shepard on 03-06-2023 MCV (RBC) [Entitic vol] 82.7 fL 81-99 [facility] [facility] Hematocrit Auto (Bld) [Volum e fraction]Ordered By: Rickey Shepard on 03-06-2023 Hematocrit (Bld) [Volume fraction] 35.8 % 37-47 [facility] INR in Blood by Coagulation assayOrdered By: Rickey Shepard on 03-06-2023 INR Coag (Bld) [Relative time] 1.2 {INR} [facility] Ketones Test strip Ql (U)Ord ered By: Rickey Shepard on 03-06-2023 Ketones Ql (U) Negative Negative [facility] Laboratory - Chemistry and C hemistry - challengeOrdered By: Rickey Shepard on 03-06-2023 ALP [Catalytic activity/Vol] 109 U/L 45-117 [facility] ALT [Catalytic activity/Vol] 13 U/L 13-56 [facility] CO2 [Moles/Vol] 25.0 mmol/L 21.0-32.0 [facility] Globulin (S) [Mass/Vol] 5.2 g/dL 2.2-4.2 [facility] Lipase [Catalytic activity/Vol] 59 U/L 13-75 [facility] Comment on above: Please note:LIPASE r evised reference range effective 22. New Lipase methodology. Expected to produce lower values than the previous assay method. NEW Reference Range: 13 - 75 U/L Urea nitrogen/Creatinine [Mass ratio] 4.0 mg/mg 10-20 [facility] Laboratory - CoagulationOrde red By: Rickey Shepard on 03-06-2023 aPTT Coag (Bld) [Time] 28.8 s 24.1-36.2 [facility] PT Coag (PPP) [Time] 14.8 s 11.7-14.9 [facility] - Hematology and Cell countsOrdered By: Rickey Shepard on 03-06-2023 Erythrocyte distribution width (RBC) [Entitic vol] 41.1 fL 35.1-43.9 [facility] Erythrocyte distribution width (RBC) [Ratio] 13.6 % 11.6-14.6 [facility] Immature granulocytes/100 WBC (Bld) 0.600 % 0.0-0.9 [facility] Comment on above: IG% - Immature Granu locytes (promyelocytes, myelocytes and metamyelocytes) > 1% indicates that a LEFT SHIFT is Present. MCH (RBC) [Entitic mass] 26.6 pg 27.0-32.0 [facility] Nucleated RBC/100 WBC (Bld) [Ratio] 0 % 0-5 [facility] MCHC Auto (RBC) [Mass/Vol]Or dered By: Rickey Shepard on 03-06-2023 MCHC (RBC) [Mass/Vol] 32.1 g/dL 32-36 [facility] Mucus LM Ql (Urine sed)Order ed By: Rickey Shepard on 03-06-2023 Mucus Ql (Urine sed) 0 SEEN /hpf [facility] Nitrite Test strip Ql (U)Ord ered By: Rickey Shepard on 03-06-2023 Nitrite Ql (U) Negative Negative [facility] No Panel InformationOrdered By: Rickey Shepard on 03-06-2023 Estimated Creatinine Clearance Calc 75.55 ml/min [facility] Estimated GFR (MDRD) Amer 82 mL/min >60 [facility] Comment on above: GFR Calc Estimated GFR (MDRD) Non-Af Amer 68 mL/min >60 [facility] Comment on above: Non- GFR Calc 26.6 pg 27.0-32.0 [facility] 13.6 % 11.6-14.6 [facility] 41.1 fl 35.1-43.9 [facility] 0.600 % 0.0-0.9 [facility] 0 % 0-5 [facility] 14.8 SECONDS 11.7-14.9 [facility] 28.8 Seconds 24.1-36.2 [facility] 68 mL/min >60 [facility] 82 mL/min >60 [facility] 75.55 ml/min [facility] 4.0 RATIO 10-20 [facility] 5.2 g/dL 2.2-4.2 [facility] 59 U/L 13-75 [facility] 109 U/L 45-117 [facility] 13 U/L 13-56 [facility] 25.0 mmol/L 21.0-32.0 [facility] Platelets bldOrdered By: Ivy Shepard on 03-06-2023 Platelets (Bld) [#/Vol] 412 10*3/uL 150-450 [facility] Protein Test strip Ql (U)Ord ered By: Rickey Shepard on 03-06-2023 Protein Ql (U) 30 mg/dl Negative [facility] Serum or plasma acetone hussein urement (mass/volume)Ordered By: Rickey Shepard on 03-06-2023 Acetone [Mass/Vol] Negative NEG [facility] Serum or plasma albumin hussein urement (mass/volume)Ordered By: Rickey Shepard on 03-06-2023 Albumin [Mass/Vol] 3.2 g/dL 3.2-5.0 [facility] Serum or plasma albumin/glob ulin mass ratioOrdered By: Rickey Shepard on 03-06-2023 Albumin/Globulin [Mass ratio] 0.6 {ratio} 0.9-2.4 [facility] Serum or plasma calcium hussein urement (mass/volume)Ordered By: Rickey Shepard on 03-06-2023 Calcium [Mass/Vol] 9.3 mg/dL 8.5-10.1 [facility] Serum or plasma creatinine m easurement (mass/volume)Ordered By: Rickey Shepard on 03-06-2023 Creatinine [Mass/Vol] 1.01 mg/dL 0.55-1.02 [facility] Comment on above: The validity of the calculated GFR & GFRAA in patients over 70 years has not been determined. Clinical correlation is essential. Serum or plasma urea nitroge n measurement (mass/volume)Ordered By: Rickey Shepard on 03-06-2023 Urea nitrogen [Mass/Vol] 4 mg/dL 7-18 [facility] Squamous epithelial cells de tection in urine sediment by light microscopyOrdered By: Rickey Shepard on 03-06-2023 Epithelial cells.squamous LM Ql (Urine sed) 0-5 SEEN /hpf 5-10 [facility] Thin prep Papanicolaou smear with manual screeningOrdered By: Rickey Shepard on 03-06-2023 Thin prep Papanicolaou smear with manual screening 7 U/L 15-37 [facility] Thin prep Papanicolaou smear with manual screening 8 5-15 [facility] Urine blood detectionOrdered By: Rickey Shepard on 03-06-2023 RBC Ql (U) 10 /ul Negative [facility] RBC Ql (U) 0 SEEN /hpf 0-5 [facility] Urine clarityOrdered By: Ivy Shepard on 03-06-2023 Clarity (U) Clear Clear [facility] Urine color determinationOrd ered By: Rickey Shepard on 03-06-2023 Color (U) Yellow Yellow [facility] Urine glucose detectionOrder ed By: Rickey Shepard on 03-06-2023 Glucose Ql (U) 100 mg/dl Normal [facility] Urine leukocyte esterase det ection by dipstickOrdered By: Rickey Shepard on 03-06-2023 Leukocyte esterase Test strip Ql (U) 25 /ul Negative [facility] Urine pHOrdered By: Rickey webb on 03-06-2023 pH (U) 7.0 [pH] 5.0 - 8.0 [facility] Urine sediment bacteria coun t by microscopy (number/high power field)Ordered By: Rickey Shepard on 03-06-2023 Bacteria LM.HPF (Urine sed) [#/Area] RARE /hpf None Seen [facility] Urine specific gravity measu rementOrdered By: Rickey Shepard on 03-06-2023 Specific gravity (U) [Rel density] 1.010 1.002-1.030 [facility] Urobilinogen Auto test strip Ql (U)Ordered By: Rickey Shepard on 03-06-2023 Urobilinogen Ql (U) Normal mg/dl Normal [facility] Basic metabolic 2000 panelon 03-04-2023 Anion gap [Moles/Vol] 14 mmol/L Normal 9-18 [facility] Comment on above: Order Comment: Speci men Type: BLOOD SPECIMENOrdering Facility: [facility] Address: [address] [place] [address] Performed By: #### 2 4321-2 ####[facility] LABORATORYCLIA [id number] [place] [address] [place] Calcium [Mass/Vol] 8.9 mg/dL Normal 8.5-10.2 [facility] Comment on above: Order Comment: Speci men Type: BLOOD SPECIMENOrdering Facility: [facility] Address: [address] [address] Performed By: #### 2 4321-2 ####[facility] LABORATORYCLIA [id number] [place] [address] [place] Chloride [Moles/Vol] 102 mmol/L Normal 97-105 [facility] Comment on above: Order Comment: Speci men Type: BLOOD SPECIMENOrdering Facility: [facility] Address: [address] [address] Performed By: #### 2 4321-2 ####[facility] LABORATORYCLIA [id number] [place] [address] [place] CO2 [Moles/Vol] 21 mmol/L Low 22-30 [facility] Comment on above: Order Comment: Speci men Type: BLOOD SPECIMENOrdering Facility: [facility] Address: [address] [address] Performed By: #### 2 4321-2 ####[facility] LABORATORYCLIA [id number] [place] [address] [place] [facility] Creatinine [Mass/Vol] 0.78 mg/dL Normal 0.58-0.96 [facility] Comment on above: Order Comment: Speci men Type: BLOOD SPECIMENOrdering Facility: [facility] Address: [address] [place] [address] Performed By: #### 2 4321-2 ####[facility] LABORATORYCLIA [id number] [address] Creatinine and Glomerular filtration rate.predicted panel (S/P/Bld) 104 mL/min/1.73m??? Normal >=60 [facility] Comment on above: Order Comment: Speci men Type: BLOOD SPECIMENOrdering Facility: [facility] Address: [address] [place] [address] Result Comment: Samreen mated Glomerular Filtration Rate [...] actual GFR. Performed By: #### 2 4321-2 ####[facility] LABORATORYCLIA [id number] [place] [id number] [place] Glucose [Mass/Vol] 158 mg/dL High 74-99 [facility] Comment on above: Order Comment: Speci alicia Type: BLOOD SPECIMENOrdering Facility: [facility] Address: [address] [place] [address] Result Comment: The [place] [employer] (ADA) provides guidance for cutoff [...] Standards of Medical Care in Diabetes 2016, [place] [employer]. Diabetes Care. 2016.39(Suppl 1). Performed By: #### 2 4321-2 ####[facility] LABORATORYCLIA [id number] [place] [address] [place] Potassium [Moles/Vol] 3.3 mmol/L Low 3.7-5.1 [facility] Comment on above: Order Comment: Mahogany vargas Type: BLOOD SPECIMENOrdering Facility: [facility] Address: [address] [place] [address] Performed By: #### 2 4321-2 ####[facility] LABORATORYCLIA [id number] [place] [address] [place] Sodium [Moles/Vol] 137 mmol/L Normal 136-144 [facility] Comment on above: Order Comment: Speci men Type: BLOOD SPECIMENOrdering Facility: [facility] Address: [address] [place] [address] Performed By: #### 2 4321-2 ####[facility] LABORATORYCLIA [id number] [place] [address] [place] Urea nitrogen [Mass/Vol] 4 mg/dL Low 7-21 [facility] Comment on above: Order Comment: Speci men Type: BLOOD SPECIMENOrdering Facility: [facility] Address: [address] [place] [address] Performed By: #### 2 4321-2 ####[facility] LABORATORYCLIA [id number] [address] [place] CBC panel Auto (Bld)on 03-04 Erythrocyte distribution width (RBC) [Ratio] 13.5 % Normal 11.5-15.0 [facility] Comment on above: Order Comment: Speci men Type: BLOOD SPECIMENOrdering Facility: [facility] Address: [address] [place] [address] Performed By: #### 5 8410-2 ####[facility] LABORATORYCLIA [id number] [address] [place] Hematocrit (Bld) [Volume fraction] 34.2 % Low 36.0-46.0 [facility] Comment on above: Order Comment: Speci men Type: BLOOD SPECIMENOrdering Facility: [facility] Address: [address] [place] [address] Performed By: #### 5 8410-2 ####[facility] LABORATORYCLIA [id number] [address] [place] Hemoglobin (Bld) [Mass/Vol] 11.5 g/dL Normal 11.5-15.5 [facility] Comment on above: Order Comment: Speci men Type: BLOOD SPECIMENOrdering Facility: [facility] Address: [address] [place] [address] Performed By: #### 5 8410-2 ####[facility] LABORATORYCLIA [id number] [place] [address] [place] MCH (RBC) [Entitic mass] 27.4 pg Normal 26.0-34.0 [facility] Comment on above: Order Comment: Speci men Type: BLOOD SPECIMENOrdering Facility: [facility] Address: [address] [place] [address] Performed By: #### 5 8410-2 ####[facility] LABORATORYCLIA [id number] [address] [place] MCHC (RBC) [Mass/Vol] 33.6 g/dL Normal 30.5-36.0 [facility] Comment on above: Order Comment: Speci men Type: BLOOD SPECIMENOrdering Facility: [facility] Address: [address] [place] [address] Performed By: #### 5 8410-2 ####[facility] LABORATORYCLIA [id number] [place] [address] [place] MCV (RBC) [Entitic vol] 81.6 fL Normal 80.0-100.0 [facility] Comment on above: Order Comment: Speci men Type: BLOOD SPECIMENOrdering Facility: [facility] Address: [address] [place] [address] Performed By: #### 5 8410-2 ####[facility] LABORATORYCLIA [id number] [place] [address] [place] Nucleated RBC (Bld) [#/Vol] 10*3/uL Normal <0.01 [facility] Comment on above: Order Comment: Speci men Type: BLOOD SPECIMENOrdering Facility: [facility] Address: [address] [place] [address] Performed By: #### 5 8410-2 ####[facility] LABORATORYCLIA [id number] [place] [address] [place] Platelet mean volume (Bld) [Entitic vol] 9.3 fL Normal 9.0-12.7 [facility] Comment on above: Order Comment: Speci men Type: BLOOD SPECIMENOrdering Facility: [facility] Address: [address] [place] [address] Performed By: #### 5 8410-2 ####[facility] LABORATORYCLIA [id number] [place] [address] [place] Platelets (Bld) [#/Vol] 362 10*3/uL Normal 150-400 [facility] Comment on above: Order Comment: Speci men Type: BLOOD SPECIMENOrdering Facility: [facility] Address: [address] [place] [address] Performed By: #### 5 8410-2 ####[facility] LABORATORYCLIA [id number] [address] RBC (Bld) [#/Vol] 4.19 10*6/uL Normal 3.90-5.20 [facility] Comment on above: Order Comment: Speci men Type: BLOOD SPECIMENOrdering Facility: [facility] Address: [address] [place] [address] Performed By: #### 5 8410-2 ####[facility] LABORATORYCLIA [id number] [place] [id number] [facility] WBC (Bld) [#/Vol] 10.19 10*3/uL Normal 3.70-11.00 [facility] Comment on above: Order Comment: Speci men Type: BLOOD SPECIMENOrdering Facility: [facility] Address: [address] [place] [address] Performed By: #### 5 8410-2 ####[facility] LABORATORYCLIA [id number] [address] CNDSon 03-04-2023 CNDS HNO ID: [id number] Author: Saida Lopez MD Service: ? Author [...] Attending Provider: Saida Lopez MD Consulting: Cayetano Quezada MD MY CONDITION AT DISCHARGE: Stable REASON [...] office evaluation. She was not evaluated by sales agent business services. Vomiting too frequent to count and constant [...] was prescribed stool softeners and laxatives during [facility] stay however she refuses to take [...] discharge in AM. Discussed with social work coordinator/case hardener. Advance diet. PLAN 03/04/23: Hemodynamically is stable. Has been walking a lot. Gets anxious. Seen by psych and GI. Discussed with social work coordinator/case hardener. OK to discharge the patient. Rest of management as outpatient. I personally spent more than 30 minutes for discharge of this patient. Discussed with unit PA/VOTING MACHINE REPAIRER about care plans. Recommended to see her psychiatrist as outpatient. Has had high BP readings. Will add Losartan. Is diabetic too.. Vitals and labs were closely monitored and evaluated while hospitalized. Electrolytes were replaced as needed. Patient is stable for discharge home today. Patient should follow up with primary care physician (Amy Solorzano: [phone]) in 7-10 days for hospital follow up. [...] A (more content not included)... [facility] NURSING PROGon 03-04-2023 NURSING PROG HNO ID: [id number] Author: Shiloh Carl RN Service: Nursing Author [...] left stable. Due care given. [facility] NURSING PROG HNO ID: [id number] Author: Hilda Dunlap RN Service: ? Author Type: Registered Nurse Type: Nursing Progress Note Filed: 03/04/2023 3:31 PM Note Text: 0725: Assumed patient care at this time. Safety maintained. 1600: Discharge instructions completed at this time. IV removed. Safety maintained. Belongings with patient. Patient has no needs at this time. Normal [facility] Basic metabolic 2000 panelon 03-03-2023 Anion gap [Moles/Vol] 12 mmol/L Normal 9-18 [facility] Comment on above: Order Comment: Speci men Type: BLOOD SPECIMENOrdering Facility: [facility] Address: [address] [address] Performed By: #### 2 4321-2 ####[facility] LABORATORYCLIA [id number] [place] [address] [place] Calcium [Mass/Vol] 9.3 mg/dL Normal 8.5-10.2 [facility] Comment on above: Order Comment: Speci men Type: BLOOD SPECIMENOrdering Facility: [facility] Address: [address] [address] Performed By: #### 2 4321-2 ####[facility] LABORATORYCLIA [id number] [place] [address] [place] Chloride [Moles/Vol] 103 mmol/L Normal 97-105 [facility] Comment on above: Order Comment: Speci men Type: BLOOD SPECIMENOrdering Facility: [facility] Address: [address] [address] Performed By: #### 2 4321-2 ####[facility] LABORATORYCLIA [id number] [place] [address] [place] CO2 [Moles/Vol] 24 mmol/L Normal 22-30 [facility] Comment on above: Order Comment: Speci men Type: BLOOD SPECIMENOrdering Facility: [facility] Address: [address] [address] Performed By: #### 2 4321-2 ####[facility] LABORATORYCLIA [id number] [place] [address] [place] Creatinine [Mass/Vol] 0.87 mg/dL Normal 0.58-0.96 [facility] Comment on above: Order Comment: Mahogany vargas Type: BLOOD SPECIMENOrdering Facility: [facility] Address: [address] [place] [address] Performed By: #### 2 4321-2 ####[facility] LABORATORYCLIA [id number] [place] [address] [place] Creatinine and Glomerular filtration rate.predicted panel (S/P/Bld) 91 mL/min/1.73m??? Normal >=60 [facility] Comment on above: Order Comment: Mahogany vargas Type: BLOOD SPECIMENOrdering Facility: [facility] Address: [address] [place] [address] Result Comment: Samreen mated Glomerular Filtration Rate [...] actual GFR. Performed By: #### 2 4321-2 ####[facility] LABORATORYCLIA [id number] [place] [address] [place] Glucose [Mass/Vol] 137 mg/dL High 74-99 [facility] Comment on above: Order Comment: Mahogany vargas Type: BLOOD SPECIMENOrdering Facility: [facility] Address: [address] [address] Result Comment: The [place] [employer] (ADA) provides guidance for cutoff [...] Standards of Medical Care in Diabetes 2016, [place] [employer]. Diabetes Care. 2016.39(Suppl 1). Performed By: #### 2 4321-2 ####[facility] LABORATORYCLIA [id number] [place] [id number] [place] Potassium [Moles/Vol] 3.5 mmol/L Low 3.7-5.1 [facility] Comment on above: Order Comment: Speci men Type: BLOOD SPECIMENOrdering Facility: [facility] Address: [address] [address] Performed By: #### 2 4321-2 ####[facility] LABORATORYCLIA [id number] [place] [id number] [place] Sodium [Moles/Vol] 139 mmol/L Normal 136-144 [facility] Comment on above: Order Comment: Speci men Type: BLOOD SPECIMENOrdering Facility: [facility] Address: [address] [address] Performed By: #### 2 4321-2 ####[facility] LABORATORYCLIA [id number] [place] [address] [place] Urea nitrogen [Mass/Vol] 6 mg/dL Low 7-21 [facility] Comment on above: Order Comment: Speci men Type: BLOOD SPECIMENOrdering Facility: [facility] Address: [address] [address] Performed By: #### 2 4321-2 ####[facility] LABORATORYCLIA [id number] [place] [id number] [place] CBC panel Auto (Bld)on 03-03 Erythrocyte distribution width (RBC) [Ratio] 13.2 % Normal 11.5-15.0 [facility] Comment on above: Order Comment: Speci men Type: BLOOD SPECIMENOrdering Facility: [facility] Address: [address] [address] Performed By: #### 5 8410-2 ####[facility] LABORATORYCLIA [id number] [address] [place] Hematocrit (Bld) [Volume fraction] 36.1 % Normal 36.0-46.0 [facility] Comment on above: Order Comment: Speci men Type: BLOOD SPECIMENOrdering Facility: [facility] Address: [address] [place] [address] Performed By: #### 5 8410-2 ####[facility] LABORATORYCLIA [id number] [place] [address] [place] Hemoglobin (Bld) [Mass/Vol] 12.2 g/dL Normal 11.5-15.5 [facility] Comment on above: Order Comment: Speci men Type: BLOOD SPECIMENOrdering Facility: [facility] Address: [address] [place] [address] Performed By: #### 5 8410-2 ####[facility] LABORATORYCLIA [id number] [place] [address] [place] MCH (RBC) [Entitic mass] 27.4 pg Normal 26.0-34.0 [facility] Comment on above: Order Comment: Speci men Type: BLOOD SPECIMENOrdering Facility: [facility] Address: [address] [place] [address] Performed By: #### 5 8410-2 ####[facility] LABORATORYCLIA [id number] [address] [place] MCHC (RBC) [Mass/Vol] 33.8 g/dL Normal 30.5-36.0 [facility] Comment on above: Order Comment: Speci men Type: BLOOD SPECIMENOrdering Facility: [facility] Address: [address] [place] [address] Performed By: #### 5 8410-2 ####[facility] LABORATORYCLIA [id number] [address] [place] MCV (RBC) [Entitic vol] 81.1 fL Normal 80.0-100.0 [facility] Comment on above: Order Comment: Speci men Type: BLOOD SPECIMENOrdering Facility: [facility] Address: [address] [address] Performed By: #### 5 8410-2 ####[facility] LABORATORYCLIA [id number] [place] [id number] [place] Nucleated RBC (Bld) [#/Vol] 10*3/uL Normal <0.01 [facility] Comment on above: Order Comment: Speci men Type: BLOOD SPECIMENOrdering Facility: [facility] Address: [address] [address] Performed By: #### 5 8410-2 ####[facility] LABORATORYCLIA [id number] [place] [address] [place] Platelet mean volume (Bld) [Entitic vol] 9.0 fL Normal 9.0-12.7 [facility] Comment on above: Order Comment: Speci men Type: BLOOD SPECIMENOrdering Facility: [facility] Address: [address] [place] [address] Performed By: #### 5 8410-2 ####[facility] LABORATORYCLIA [id number] [place] [address] [place] Platelets (Bld) [#/Vol] 397 10*3/uL Normal 150-400 [facility] Comment on above: Order Comment: Speci men Type: BLOOD SPECIMENOrdering Facility: [facility] Address: [address] [place] [address] Performed By: #### 5 8410-2 ####[facility] LABORATORYCLIA [id number] [place] [address] [place] RBC (Bld) [#/Vol] 4.45 10*6/uL Normal 3.90-5.20 [facility] Comment on above: Order Comment: Speci men Type: BLOOD SPECIMENOrdering Facility: [facility] Address: [address] [place] [address] Performed By: #### 5 8410-2 ####[facility] LABORATORYCLIA [id number] [place] [address] [place] WBC (Bld) [#/Vol] 13.15 10*3/uL High 3.70-11.00 [facility] Comment on above: Order Comment: Speci men Type: BLOOD SPECIMENOrdering Facility: [facility] Address: [address] [place], [place] [address] Performed By: #### 5 8410-2 ####[facility]ORATORYCLIA [id number] [place] [id number] [facility] CONSULTon 03-03-2023 CONSULT HNO ID: [id number] Author: Cayetano Quezada MD Service: Psychiatry Author Type: Physician Type: [...] admitted with intractable vomiting. She is from [place], [place] and was in [place] for a GI appointment and was sent [...] today's visit: Most recent labs SIGNATURE: Cayetano Quezada MD DATE: March 03, 2023 TIME: 3:03 PM [facility] CT ABD/PEL W IVCONon 023 CT ABD/PEL W IVCON * * *Final Report* * * DATE OF EXAM: Mar 03 2023 11:01AM [facility] 0530 - CT ABD/PEL W IVCON / [...] 03 2023 11:11AM EST [id number] [facility] NURSING PROGon 03-03-2023 NURSING PROG HNO ID: [id number] Author: Anayeli Blue RN Service: PICC Team [...] 03, 2023 TIME: 10:46 AM PAGER/CONTACT #: [phone] [facility] NURSING PROG HNO ID: [id number] Author: Hilda Dunlap RN Service: ? Author [...] come assess patient at bedside. [facility] ALLIED HEALTHon 03-02-2023 ALLIED HEALTH HNO ID: [id number] Author: Omari Juan RT(R) Service: Radiology Author [...] RT Marleni(R) March 02, 2023 5:12 PM [facility] Basic metabolic 2000 panelon 03-02-2023 Anion gap [Moles/Vol] 12 mmol/L Normal 9-18 [facility] Comment on above: Order Comment: Speci men Type: BLOOD SPECIMENOrdering Facility: [facility] Address: [address] [address] Performed By: #### 2 4321-2 ####[facility] LABORATORYCLIA [id number] [place] [id number] [place] Calcium [Mass/Vol] 8.9 mg/dL Normal 8.5-10.2 [facility] Comment on above: Order Comment: Speci men Type: BLOOD SPECIMENOrdering Facility: [facility] Address: [address] [place] [address] Performed By: #### 2 4321-2 ####[facility] LABORATORYCLIA [id number] [place] [address] [place] Chloride [Moles/Vol] 102 mmol/L Normal 97-105 [facility] Comment on above: Order Comment: Speci men Type: BLOOD SPECIMENOrdering Facility: [facility] Address: [address] [place] [address] Performed By: #### 2 4321-2 ####[facility] LABORATORYCLIA [id number] [place] [address] [place] CO2 [Moles/Vol] 26 mmol/L Normal 22-30 [facility] Comment on above: Order Comment: Speci men Type: BLOOD SPECIMENOrdering Facility: [facility] Address: [address] [place] [address] Performed By: #### 2 4321-2 ####[facility] LABORATORYCLIA [id number] [place] [address] [place] Creatinine [Mass/Vol] 0.92 mg/dL Normal 0.58-0.96 [facility] Comment on above: Order Comment: Speci men Type: BLOOD SPECIMENOrdering Facility: [facility] Address: [address] [place] [address] Performed By: #### 2 4321-2 ####[facility] LABORATORYCLIA [id number] [place] [address] [place] Creatinine and Glomerular filtration rate.predicted panel (S/P/Bld) 86 mL/min/1.73m??? Normal >=60 [facility] Comment on above: Order Comment: Mahogany vargas Type: BLOOD SPECIMENOrdering Facility: [facility] Address: [address] [place] [address] Result Comment: Samreen mated Glomerular Filtration Rate [...] actual GFR. Performed By: #### 2 4321-2 ####[facility] LABORATORYCLIA [id number] [place] [address] [place] Glucose [Mass/Vol] 162 mg/dL High 74-99 [facility] Comment on above: Order Comment: Mahogany vargas Type: BLOOD SPECIMENOrdering Facility: [facility] Address: [address] [place] [address] Result Comment: The [place] Diabetes Association (ADA) provides guidance for cutoff [...] Standards of Medical Care in Diabetes 2016, [place] [employer]. Diabetes Care. 2016.39(Suppl 1). Performed By: #### 2 4321-2 ####[facility] LABORATORYCLIA [id number] [place] [id number] [place] Potassium [Moles/Vol] 3.7 mmol/L Normal 3.7-5.1 [facility] Comment on above: Order Comment: Mahogany vargas Type: BLOOD SPECIMENOrdering Facility: [facility] Address: [address] [address] Performed By: #### 2 4321-2 ####[facility] LABORATORYCLIA [id number] [place] [address] [place] Sodium [Moles/Vol] 140 mmol/L Normal 136-144 [facility] Comment on above: Order Comment: Speci men Type: BLOOD SPECIMENOrdering Facility: [facility] Address: [address] [address] Performed By: #### 2 4321-2 ####[facility] LABORATORYCLIA [id number] [place] [address] [place] Urea nitrogen [Mass/Vol] 8 mg/dL Normal 7-21 [facility] Comment on above: Order Comment: Speci men Type: BLOOD SPECIMENOrdering Facility: [facility] Address: [address] [address] Performed By: #### 2 4321-2 ####[facility] LABORATORYCLIA [id number] [address] [place] CBC panel Auto (Bld)on 03-02 Erythrocyte distribution width (RBC) [Ratio] 13.4 % Normal 11.5-15.0 [facility] Comment on above: Order Comment: Speci men Type: BLOOD SPECIMENOrdering Facility: [facility] Address: [address] [address] Performed By: #### 5 8410-2 ####[facility] LABORATORYCLIA [id number] [address] Hematocrit (Bld) [Volume fraction] 34.1 % Low 36.0-46.0 [facility] Comment on above: Order Comment: Speci men Type: BLOOD SPECIMENOrdering Facility: [facility] Address: [address] [place] [address] Performed By: #### 5 8410-2 ####[facility] LABORATORYCLIA [id number] [place] [address] [place] Hemoglobin (Bld) [Mass/Vol] 11.3 g/dL Low 11.5-15.5 [facility] Comment on above: Order Comment: Speci men Type: BLOOD SPECIMENOrdering Facility: [facility] Address: [address] [place] [address] Performed By: #### 5 8410-2 ####[facility] LABORATORYCLIA [id number] [place] [address] [place] MCH (RBC) [Entitic mass] 27.2 pg Normal 26.0-34.0 [facility] Comment on above: Order Comment: Speci men Type: BLOOD SPECIMENOrdering Facility: [facility] Address: [address] [place] [address] Performed By: #### 5 8410-2 ####[facility] LABORATORYCLIA [id number] [place] [address] [place] MCHC (RBC) [Mass/Vol] 33.1 g/dL Normal 30.5-36.0 [facility] Comment on above: Order Comment: Speci men Type: BLOOD SPECIMENOrdering Facility: [facility] Address: [address] [place] [address] Performed By: #### 5 8410-2 ####[facility] LABORATORYCLIA [id number] [address] [place] MCV (RBC) [Entitic vol] 82.2 fL Normal 80.0-100.0 [facility] Comment on above: Order Comment: Speci men Type: BLOOD SPECIMENOrdering Facility: [facility] Address: [address] [place] [address] Performed By: #### 5 8410-2 ####[facility] LABORATORYCLIA [id number] [place] [address] [place] Nucleated RBC (Bld) [#/Vol] 10*3/uL Normal <0.01 [facility] Comment on above: Order Comment: Speci men Type: BLOOD SPECIMENOrdering Facility: [facility] Address: [address] [place] [address] Performed By: #### 5 8410-2 ####[facility] LABORATORYCLIA [id number] [place] [address] [place] Platelet mean volume (Bld) [Entitic vol] 9.4 fL Normal 9.0-12.7 [facility] Comment on above: Order Comment: Speci men Type: BLOOD SPECIMENOrdering Facility: [facility] Address: [address] [place] [address] Performed By: #### 5 8410-2 ####[facility] LABORATORYCLIA [id number] [place] [address] [place] Platelets (Bld) [#/Vol] 374 10*3/uL Normal 150-400 [facility] Comment on above: Order Comment: Speci men Type: BLOOD SPECIMENOrdering Facility: [facility] Address: [address] [place] [address] Performed By: #### 5 8410-2 ####[facility] LABORATORYCLIA [id number] [place] [address] [place] RBC (Bld) [#/Vol] 4.15 10*6/uL Normal 3.90-5.20 [facility] Comment on above: Order Comment: Speci men Type: BLOOD SPECIMENOrdering Facility: [facility] Address: [address] [place] [address] Performed By: #### 5 8410-2 ####[facility] LABORATORYCLIA [id number] [place] [address] [place] WBC (Bld) [#/Vol] 9.29 10*3/uL Normal 3.70-11.00 [facility] Comment on above: Order Comment: Speci men Type: BLOOD SPECIMENOrdering Facility: [facility] Address: [address] [place] [address] Performed By: #### 5 8410-2 ####[facility] LABORATORYCLIA [id number] [place] [address] [place] CNPYari 03-02-2023 CNPN Telephone (SPPRAD) GHISLAINE GIVENS ([id number]) 1990 F [place] Date Time Provider Department [...] Visit: Appointment [186] Primary Visit Diagnosis:Nausea [R11.0] Order(s):[facility]TY[facility] SOLID [7820079] Order #: [id number] FUTURE Prescriptions as of 01/31/2024 - acetaminophen [...] 10 Units subcutaneously twice daily. - pantoprazole (PROTONIX) 40 mg tablet Take 1 tablet by mouth twice daily before meals (0600/1600). - bacitracin 500 unit/gram ointment Apply to affected area twice daily. Problem List As Of Date 03/02/2023 Noted Resolved DM2 (diabetes mellitus, type 2) (HCC) [E11.9] 03/16/2013 Elevated BP [FSL5001] 04/28/2013 11/27/2013 HLD (hyperlipidemia) [E78.5] 11/27/2013 Tobacco use disorder [F17.200] 11/27/2013 Obesity, Class I, BMI 30-34.9 [E66.9] 02/18/2023 Intractable nausea and vomiting [R11.2] 02/18/2023 Severe protein-calorie malnutrition (HCC) [E43] 02/19/2023 Abdominal pain [R10.9] 03/01/2023 Constipation [K59.00] 03/02/2023 Anxiety and depression [F41.9, F32.A] 03/02/2023 Borderline personality disorder (HCC) [F60.3] 03/02/2023 Encounter Status:Closed by ALMITA KELLY on 01/31/24 [facility] CONSULTon 03-02-2023 CONSULT HNO ID: [id number] Author: Gen Bradford MD Service: Gastroenterology Author Type: Physician Type: Consults Filed: 03/02/2023 5:20 PM Note Text: [facility] PHYSICIAN NOTE OF PERSONAL INVOLVEMENT IN [...] 02, 2023 Patient: Ghislaine Givens Medical Record: [id number] Reason for Consult: Abdominal pain, vomiting Requesting [...] mild gastritis and an esophageal ulcer at [facility]. She was escorted down from Dr. [...] directed. Patient (more content not included)... Normal [facility] HISTORY PHYSICALon HISTORY PHYSICAL HNO ID: [id number] Author: Saida Lopez MD Service: ? Author [...] DM2 (diabetes mellitus, type 2) ([facility]) POA: Yes Monitor blood sugars [...] office evaluation. She was not evaluated by sales agent business services. Vomiting too frequent to count and constant [...] was prescribed stool softeners and laxatives during [facility] stay however she refuses to take them because she feels they worsen abdominal pain. She was also prescribed narcotic pain medication for home which she states she has been taking. PAST MEDICAL HISTORY: PAST MEDICAL HISTORY Diagnosis Date Bipolar 1 disorder (HCC) 2007 Depression Diabetes mellitus ([facility]) Elevated BP 04/28/2013 Insomnia PAST [...] Mar 02 2023 5:24PM EST [id number] Normal [facility] CBC W Auto Differential pane l (Bld)on 03-01-2023 Basophils (Bld) [#/Vol] 0.04 10*3/uL Normal <0.11 [facility] Comment on above: Order Comment: Speci men Type: BLOOD SPECIMENOrdering Facility: [facility] Address: [address] [place] [address] Performed By: #### 5 7021-8 ####[facility] LABORATORYCLIA [id number] [place] [address] [place] Basophils/100 WBC (Bld) 0.3 % Normal S [facility] Comment on above: Order Comment: Speci men Type: BLOOD SPECIMENOrdering Facility: [facility] Address: [address] [address] Performed By: #### 5 7021-8 ####[facility] LABORATORYCLIA [id number] [place] [address] [place] Differential cell count method Nom (Bld) Auto Normal [facility] Comment on above: Order Comment: Speci men Type: BLOOD SPECIMENOrdering Facility: [facility] Address: [address] [address] Performed By: #### 5 7021-8 ####[facility] LABORATORYCLIA [id number] [place] [address] [place] Eosinophils (Bld) [#/Vol] 0.03 10*3/uL Normal <0.46 [facility] Comment on above: Order Comment: Speci men Type: BLOOD SPECIMENOrdering Facility: [facility] Address: [address] [address] Performed By: #### 5 7021-8 ####[facility] LABORATORYCLIA [id number] [place] [address] [place] Eosinophils/100 WBC (Bld) 0.2 % Normal [facility] Comment on above: Order Comment: Speci men Type: BLOOD SPECIMENOrdering Facility: [facility] Address: [address] [place] [address] Performed By: #### 5 7021-8 ####[facility] LABORATORYCLIA [id number] [place] [address] [place] Erythrocyte distribution width (RBC) [Ratio] 13.6 % Normal 11.5-15.0 [facility] Comment on above: Order Comment: Speci men Type: BLOOD SPECIMENOrdering Facility: [facility] Address: [address] [place] [address] Performed By: #### 5 7021-8 ####[facility] LABORATORYCLIA [id number] [place] [address] [place] Hematocrit (Bld) [Volume fraction] 41.4 % Normal 36.0-46.0 [facility] Comment on above: Order Comment: Speci men Type: BLOOD SPECIMENOrdering Facility: [facility] Address: [address] [place] [address] Performed By: #### 5 7021-8 ####[facility] LABORATORYCLIA [id number] [place] [address] [place] Hemoglobin (Bld) [Mass/Vol] 13.6 g/dL Normal 11.5-15.5 [facility] Comment on above: Order Comment: Speci men Type: BLOOD SPECIMENOrdering Facility: [facility] Address: [address] [place] [address] Performed By: #### 5 7021-8 ####[facility] LABORATORYCLIA [id number] [place] [address] [place] Immature granulocytes (Bld) [#/Vol] 0.08 10*3/uL Normal <0.10 [facility] Comment on above: Order Comment: Speci men Type: BLOOD SPECIMENOrdering Facility: [facility] Address: [address] [place] [address] Performed By: #### 5 7021-8 ####[facility] LABORATORYCLIA [id number] [place] [address] [place] Immature granulocytes/100 WBC (Bld) 0.6 % Normal [facility] Comment on above: Order Comment: Speci men Type: BLOOD SPECIMENOrdering Facility: [facility] Address: [address] [place] [address] Performed By: #### 5 7021-8 ####[facility] LABORATORYCLIA [id number] [place] [address] [place] Lymphocytes (Bld) [#/Vol] 3.86 10*3/uL Normal 1.00-4.00 [facility] Comment on above: Order Comment: Speci men Type: BLOOD SPECIMENOrdering Facility: [facility] Address: [address] [place] [address] Performed By: #### 5 7021-8 ####[facility] LABORATORYCLIA [id number] [place] [address] [place] Lymphocytes/100 WBC (Bld) 28.3 % Normal [facility] Comment on above: Order Comment: Speci men Type: BLOOD SPECIMENOrdering Facility: [facility] Address: [address] [place] [address] Performed By: #### 5 7021-8 ####[facility] LABORATORYCLIA [id number] [place] [address] [place] MCH (RBC) [Entitic mass] 26.8 pg Normal 26.0-34.0 [facility] Comment on above: Order Comment: Speci men Type: BLOOD SPECIMENOrdering Facility: [facility] Address: [address] [place] [address] Performed By: #### 5 7021-8 ####[facility] LABORATORYCLIA [id number] [place] [address] [place] MCHC (RBC) [Mass/Vol] 32.9 g/dL Normal 30.5-36.0 [facility] Comment on above: Order Comment: Speci men Type: BLOOD SPECIMENOrdering Facility: [facility] Address: [address] [place] [address] Performed By: #### 5 7021-8 ####[facility] LABORATORYCLIA [id number] [place] [address] [place] MCV (RBC) [Entitic vol] 81.7 fL Normal 80.0-100.0 [facility] Comment on above: Order Comment: Speci men Type: BLOOD SPECIMENOrdering Facility: [facility] Address: [address] [place] [address] Performed By: #### 5 7021-8 ####[facility] LABORATORYCLIA [id number] [place] [address] [place] Monocytes (Bld) [#/Vol] 0.80 10*3/uL Normal <0.87 [facility] Comment on above: Order Comment: Speci men Type: BLOOD SPECIMENOrdering Facility: [facility] Address: [address] [place] [address] Performed By: #### 5 7021-8 ####[facility] LABORATORYCLIA [id number] [place] [address] [place] Monocytes/100 WBC (Bld) 5.9 % Normal [facility] Comment on above: Order Comment: Speci men Type: BLOOD SPECIMENOrdering Facility: [facility] Address: [address] [place] [address] Performed By: #### 5 7021-8 ####[facility] LABORATORYCLIA [id number] [place] [address] [place] Neutrophils (Bld) [#/Vol] 8.85 10*3/uL High 1.45-7.50 [facility] Comment on above: Order Comment: Speci men Type: BLOOD SPECIMENOrdering Facility: [facility] Address: [address] [place] [address] Performed By: #### 5 7021-8 ####[facility] LABORATORYCLIA [id number] [place] [address] [place] Neutrophils/100 WBC (Bld) 64.7 % Normal [facility] Comment on above: Order Comment: Speci men Type: BLOOD SPECIMENOrdering Facility: [facility] Address: [address] [place] [address] Performed By: #### 5 7021-8 ####[facility] LABORATORYCLIA [id number] [place] [address] [place] Nucleated RBC (Bld) [#/Vol] 10*3/uL Normal <0.01 [facility] Comment on above: Order Comment: Speci men Type: BLOOD SPECIMENOrdering Facility: [facility] Address: [address] [place] [address] Performed By: #### 5 7021-8 ####[facility] LABORATORYCLIA [id number] [place] [address] [place] Nucleated RBC/100 WBC (Bld) [Ratio] 0.0 /100 WBC Normal [facility] Comment on above: Order Comment: Speci men Type: BLOOD SPECIMENOrdering Facility: [facility] Address: [address] [place] [address] Performed By: #### 5 7021-8 ####[facility] LABORATORYCLIA [id number] [place] [address] [place] Platelet mean volume (Bld) [Entitic vol] 9.3 fL Normal 9.0-12.7 [facility] Comment on above: Order Comment: Speci men Type: BLOOD SPECIMENOrdering Facility: [facility] Address: [address] [place] [address] Performed By: #### 5 7021-8 ####[facility] LABORATORYCLIA [id number] [place] [address] [place] Platelets (Bld) [#/Vol] 495 10*3/uL High 150-400 [facility] Comment on above: Order Comment: Speci men Type: BLOOD SPECIMENOrdering Facility: [facility] Address: [address] [address] Performed By: #### 5 7021-8 ####[facility] LABORATORYCLIA [id number] [address] RBC (Bld) [#/Vol] 5.07 10*6/uL Normal 3.90-5.20 [facility] Comment on above: Order Comment: Speci men Type: BLOOD SPECIMENOrdering Facility: [facility] Address: [address] [address] Performed By: #### 5 7021-8 ####[facility] LABORATORYCLIA [id number] [place] [id number] [place] [facility] WBC (Bld) [#/Vol] 13.66 10*3/uL High 3.70-11.00 [facility] Comment on above: Order Comment: Speci men Type: BLOOD SPECIMENOrdering Facility: [facility] Address: [address] [place] [address] Performed By: #### 5 7021-8 ####[facility] LABORATORYCLIA [id number] [address] Comprehensive metabolic 2000 panelon 03-01-2023 Albumin [Mass/Vol] 4.1 g/dL Normal 3.9-4.9 [facility] Comment on above: Order Comment: Speci men Type: BLOOD SPECIMENOrdering Facility: [facility] Address: [address] [place] [address] Performed By: #### [place], [address]-7, 3040-3, 30968-8 ####[facility] LABORATORYCLIA [id number] [address] ALP [Catalytic activity/Vol] 102 U/L Normal 34-123 [facility] Comment on above: Order Comment: Speci men Type: BLOOD SPECIMENOrdering Facility: [facility] Address: [address] [place] [address] Performed By: #### [place], [address]-5, 3040-3, 43456-2 ####[facility] LABORATORYCLIA [id number] [place] [address] [place] ALT [Catalytic activity/Vol] 10 U/L Normal 7-38 [facility] Comment on above: Order Comment: Speci men Type: BLOOD SPECIMENOrdering Facility: [facility] Address: [address] [place] [address] Performed By: #### B HB, , 3040-3, 31353-1 ####[facility] LABORATORYCLIA [id number] [place] [address] [place] Anion gap [Moles/Vol] 15 mmol/L Normal 9-18 [facility] Comment on above: Order Comment: Speci men Type: BLOOD SPECIMENOrdering Facility: [facility] Address: [address] [place] [address] Performed By: #### B HB, , 3040-3, 78252-4 ####[facility] LABORATORYCLIA [id number] [address] [place] AST [Catalytic activity/Vol] 12 U/L Low 13-35 [facility] Comment on above: Order Comment: Speci men Type: BLOOD SPECIMENOrdering Facility: [facility] Address: [address] [place] [address] Performed By: #### B HB, , 3040-3, 57625-5 ####[facility] LABORATORYCLIA [id number] [place] [address] [place] Bilirubin [Mass/Vol] 0.4 mg/dL Normal 0.2-1.3 [facility] Comment on above: Order Comment: Speci men Type: BLOOD SPECIMENOrdering Facility: [facility] Address: [address] [place] [address] Performed By: #### B HB, 40700-2, 3040-3, 17674-6 ####[facility] LABORATORYCLIA [id number] [place] [address] [place] Calcium [Mass/Vol] 9.8 mg/dL Normal 8.5-10.2 [facility] Comment on above: Order Comment: Speci men Type: BLOOD SPECIMENOrdering Facility: [facility] Address: [address] [place] [address] Performed By: #### B HB, 02065-5, 3040-3, 77275-9 ####[facility] LABORATORYCLIA [id number] [place] [address] [place] Chloride [Moles/Vol] 95 mmol/L Low 97-105 [facility] Comment on above: Order Comment: Speci men Type: BLOOD SPECIMENOrdering Facility: [facility] Address: [address] [place] [address] Performed By: #### B HB, 34789-5, 3040-3, 90698-0 ####[facility] LABORATORYCLIA [id number] [place] [address] [place] CO2 [Moles/Vol] 23 mmol/L Normal 22-30 [facility] Comment on above: Order Comment: Speci men Type: BLOOD SPECIMENOrdering Facility: [facility] Address: [address] [place] [address] Performed By: #### B HB, 02693-0, 3040-3, 42581-7 ####[facility] LABORATORYCLIA [id number] [place] [address] [place] Creatinine [Mass/Vol] 1.02 mg/dL High 0.58-0.96 [facility] Comment on above: Order Comment: Speci men Type: BLOOD SPECIMENOrdering Facility: [facility] Address: [address] [place] [address] Performed By: #### [place], [address]-2, 3040-3, 99213-7 ####[facility] LABORATORYCLIA [id number] [place] [address] [place] Creatinine and Glomerular filtration rate.predicted panel (S/P/Bld) 76 mL/min/1.73m??? Normal >=60 [facility] Comment on above: Order Comment: Mahogany vargas Type: BLOOD SPECIMENOrdering Facility: [facility] Address: [address] [place], [place] [id number] Result Comment: Samreen mated Glomerular Filtration Rate [...] actual GFR. Performed By: #### [place], [address]-6, 3039-3, 17410-7 ####[facility] LABORATORYCLIA [id number] [place] [id number] [place] Glucose [Mass/Vol] 258 mg/dL High 74-99 [facility] Comment on above: Order Comment: Mahogany vargas Type: BLOOD SPECIMENOrdering Facility: [facility] Address: [address] [place], [place] [id number] Result Comment: The [place] Diabetes Association (ADA) provides guidance for cutoff [...] Standards of Medical Care in Diabetes 2016, [place] [employer]. Diabetes Care. 2016.39(Suppl 1). Performed By: #### [place], 19155-3, 3039-3, 39494-7 ####[facility] LABORATORYCLIA [id number] [place] [id number] [place] Potassium [Moles/Vol] 3.5 mmol/L Low 3.7-5.1 [facility] Comment on above: Order Comment: Speci men Type: BLOOD SPECIMENOrdering Facility: [facility] Address: [address] [place] [address] Performed By: #### [place], [address]-7, 3040-3, 94307-6 ####[facility] LABORATORYCLIA [id number] [place] [address] [place] Protein [Mass/Vol] 8.5 g/dL High 6.3-8.0 [facility] Comment on above: Order Comment: Speci men Type: BLOOD SPECIMENOrdering Facility: [facility] Address: [address] [place] [address] Performed By: #### [place], [address]-5, 3040-3, 33328-3 ####[facility] TIFFANYChar[facility] LABORATORYCLIA [id number] [place] [address] [place] Sodium [Moles/Vol] 133 mmol/L Low 136-144 [facility] Comment on above: Order Comment: Speci men Type: BLOOD SPECIMENOrdering Facility: [facility] Address: [address] [place] [address] Performed By: #### [place], [address]-1, 3039-3, 24577-3 ####[facility]FFANY[facility] LABORATORYCLIA [id number] [place] [address] [place] Urea nitrogen [Mass/Vol] 11 mg/dL Normal 7-21 [facility] Comment on above: Order Comment: Speci men Type: BLOOD SPECIMENOrdering Facility: [facility] Address: [address] [place] [address] Performed By: #### [place], [address]-7, 3040-3, 90088-4 ####[facility] ALLENCharan LABORATORYCLIA [id number] [place] [address] [place] ECG COMPLETEon 03-01-2023 ECG COMPLETE Ventricular Rate : 8 3 BPM Atrial Rate : 83 BPM P-R Interval : 126 ms QRS Duration : 90 ms Q-T Interval : 358 ms QTC Calculation(Bazett) : 420 ms Calculated P Bath : 5 degrees Calculated R Bath : 1 degrees Calculated T Bath : 13 degrees NORMAL SINUS RHYTHM MINIMAL VOLTAGE CRITERIA FOR LVH, MAY BE NORMAL VARIANT ( R in aVL ) NONSPECIFIC T WAVE ABNORMALITY ABNORMAL ECG NO PREVIOUS ECGS AVAILABLE Confirmed by ARABELLA SARMIENTO DO (), video effects editor RAFIQ GARVEY ([id number]) on 03/02/2023 7:20:55 AM NAME : GHISLAINE GIVENS PID : [id number] : 1990 Gender : Female Race : ORD : [id number] Procedure Date : Mar 01 2023 11:58:01 Edit Date : Mar 02 2023 07:20:56 Diagnosis: NORMAL SINUS RHYTHM MINIMAL VOLTAGE CRITERIA FOR LVH, MAY BE NORMAL VARIANT ( R in aVL ) NONSPECIFIC T WAVE ABNORMALITY ABNORMAL ECG NO PREVIOUS ECGS AVAILABLE Confirmed by ARABELLA SARMIENTO DO (), video effects editor RAFIQ GARVEY ([id number]) on 03/02/2023 7:20:55 AM Test Reason : Chest Pain Location : 1 : 1 ED Overread By : ARABELLA SARMIENTO DO Edited By : RAFIQ GARVEY Referred By : , Acquired by : , [facility] ED NOTEon 03-01-2023 ED NOTE HNO ID: [id number] Author: Gayathri Bruno RN Service: ? Author Type: Registered Nurse Type: ED Notes Filed: 03/01/2023 5:12 PM Note Text: NG tube removed without complications. [facility] ED NOTE HNO ID: [id number] Author: Luzma Sen RN Service: Emergency Medicine Author Type: Registered Nurse Type: ED Notes Filed: 03/01/2023 5:05 PM Note Text: Patient crying and yelling in room to take out her NG tube. Provider aware. [facility] ED NOTE HNO ID: [id number] Author: Dewayne Gallagher RN Service: ? Author Type: Registered Nurse Type: ED Notes Filed: 03/01/2023 11:20 AM Note Text: Pt has longstanding pmh abd pain with n/v, had upper gi scope done at [facility] 02/19/23 that showed mild gastritis. Pt was in [facility] office for first visit, escorted down here by nursing staff. Pt denies diarrhea, sts too many episodes of vomiting to count, sts maybe a little when asked about hematemesis. Pt sts she hasnt smoked thc in 3 mos since all this started, sts ongoing issue for past 3 mos. [facility] ED PROV NOTEon 03-01-2023 ED PROV NOTE HNO ID: [id number] Author: Arabella Sarmiento DO Service: Emergency Medicine [...] office evaluation. She was not evaluated by sales agent business services. Vomiting too frequent to count and constant [...] was prescribed stool softeners and laxatives during [facility] stay however she refuses to take them because she feels they worsen abdominal pain. She was also prescribed narcotic pain medication for home which she states she has been taking. 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 PAST MEDICAL HISTORY Diagnosis Date [...] Comment: Speci men Type: BLOOD SPECIMENOrdering Facility: [facility] Address: [address] [place] [address] Performed By: #### B GARDENIA, , 3, ####[facility] LABORATORYCLIA [id number] [place] [address] [place] Lipase SerPl-cCncon 03-01-20 23 Lipase [Catalytic activity/Vol] 57 U/L Normal 16-61 [facility] Comment on above: Order Comment: Speci men Type: BLOOD SPECIMENOrdering Facility: [facility] Address: [address] [place] [address] Performed By: #### B GARDENIA, , 3, ####[facility] LABORATORYCLIA [id number] [place] [address] [place] Magnesium SerPl-mCncon 03-01 Magnesium [Mass/Vol] 1.7 mg/dL Normal 1.7-2.3 [facility] Comment on above: Order Comment: Speci men Type: BLOOD SPECIMENOrdering Facility: [facility] Address: [address] [place] [address] Performed By: #### B HB, , 3, ####[facility] LABORATORYCLIA [id number] [place] [address] [place] TOX SCREEN ROUT URon 023 Amphetamines Confirm (U) [Mass/Vol] Negative Normal Negative [facility] Comment on above: Order Comment: Speci men Type: URINE SPECIMENOrdering Facility: [facility] Address: [address] [place] [address] Result Comment: Cuto ff threshold at 1000 ng/mL. Performed By: #### U TOX2 ####[facility] LABORATORYCLIA [id number] [place] [address] [place] BARBITURATES, URINE Negative Normal Negative [facility] Comment on above: Order Comment: Speci men Type: URINE SPECIMENOrdering Facility: [facility] Address: [address] [place] [address] Result Comment: Cuto ff threshold at 200 ng/mL. Performed By: #### U TOX2 ####[facility] LABORATORYCLIA [id number] [place] [address] [place] BENZODIAZEPINES, UR Negative Normal Negative [facility] Comment on above: Order Comment: Speci men Type: URINE SPECIMENOrdering Facility: [facility] Address: [address] [place] [address] Result Comment: Cuto ff threshold at 200 ng/mL. Performed By: #### U TOX2 ####[facility] LABORATORYCLIA [id number] [place] [address] [place] Cannabinoids Screen Ql (U) Negative Normal Negative [facility] Comment on above: Order Comment: Speci men Type: URINE SPECIMENOrdering Facility: [facility] Address: [address] [place] [address] Result Comment: Cuto ff threshold at 50 ng/mL. Performed By: #### U TOX2 ####[facility] LABORATORYCLIA [id number] [place] [address] [place] Cocaine Ql (U) Negative Normal Negative [facility] Comment on above: Order Comment: Speci men Type: URINE SPECIMENOrdering Facility: [facility] Address: [address] [place] [address] Result Comment: Cuto ff threshold at 300 ng/mL. Performed By: #### U TOX2 ####[facility]ORATORYCLIA [id number] [place] [address] [place] Ethanol (U) [Mass/Vol] <11 Normal <11 [facility] Comment on above: Order Comment: Speci men Type: URINE SPECIMENOrdering Facility: [facility] Address: [address] [place] [address] Performed By: #### U TOX2 ####[facility] LABORATORYCLIA [id number] [place] [address] [place] Opiates Screen Ql (U) Positive Abnormal Negative [facility] Comment on above: Order Comment: Speci men Type: URINE SPECIMENOrdering Facility: [facility] Address: [address] [place] [address] Result Comment: Cuto ff threshold at 300 ng/mL. Performed By: #### U TOX2 ####[facility] LABORATORYCLIA [id number] [address] [place] oxyCODONE cutoff Screen (U) [Mass/Vol] Negative Normal Negative [facility] Comment on above: Order Comment: Speci men Type: URINE SPECIMENOrdering Facility: [facility] Address: [address] [place] [address] Result Comment: Cuto ff threshold at 100 ng/mL. Performed By: #### U TOX2 ####[facility] LABORATORYCLIA [id number] [place] [address] [place] Phencyclidine Ql (U) Negative Normal Negative [facility] Comment on above: Order Comment: Speci men Type: URINE SPECIMENOrdering Facility: [facility] Address: [address] [place] [address] Result Comment: Cuto ff threshold at 25 ng/mL. Performed By: #### U TOX2 ####[facility] LABORATORYCLIA [id number] [place] [address] [place] Urinalysis complete panel (U )on 03-01-2023 Bacteria LM.HPF (Urine sed) [#/Area] Moderate Abnormal None Seen [facility] Comment on above: Order Comment: Speci men Type: URINE SPECIMENOrdering Facility: [facility] Address: [address] [place] [address] Performed By: #### 2 4356-8 ####[facility] LABORATORYCLIA [id number] [place] [address] [place] Bilirubin Ql (U) 1+ Abnormal Negative [facility] Comment on above: Order Comment: Speci men Type: URINE SPECIMENOrdering Facility: [facility] Address: [address] [place] [address] Result Comment: Sugg est correlation with clinical findings and serum bilirubin if clinically indicated. Performed By: #### 2 4356-8 ####[facility] LABORATORYCLIA [id number] [place] [address] [place] Clarity (Unsp spec) Cloudy Abnormal Clear [facility] Comment on above: Order Comment: Speci men Type: URINE SPECIMENOrdering Facility: [facility] Address: [address] [place] [address] Performed By: #### 2 4356-8 ####[facility] LABORATORYCLIA [id number] [place] [address] [place] Color (U) Yellow Normal Yellow [facility] Comment on above: Order Comment: Speci men Type: URINE SPECIMENOrdering Facility: [facility] Address: [address] [place] [address] Performed By: #### 2 4356-8 ####[facility] LABORATORYCLIA [id number] [place] [address] [place] Epithelial cells LM.HPF (Urine sed) [#/Area] Many Normal [facility] Comment on above: Order Comment: Speci men Type: URINE SPECIMENOrdering Facility: [facility] Address: [address] [place] [address] Result Comment: Few Performed By: #### 2 4356-8 ####[facility] LABORATORYCLIA [id number] [place] [address] [place] Glucose Test strip (U) [Mass/Vol] Trace Abnormal Negative [facility] Comment on above: Order Comment: Speci men Type: URINE SPECIMENOrdering Facility: [facility] Address: [address] [place] [address] Performed By: #### 2 4356-8 ####[facility] LABORATORYCLIA [id number] [place] [address] [place] Hemoglobin Ql (U) Negative Normal Negative, Trace [facility] Comment on above: Order Comment: Speci men Type: URINE SPECIMENOrdering Facility: [facility] Address: [address] [place] [address] Performed By: #### 2 4356-8 ####[facility] LABORATORYCLIA [id number] [place] [address] [place] Hyaline casts (Urine sed) [#/Area] 1-3 /LPF Abnormal 0 /LPF [facility] Comment on above: Order Comment: Speci men Type: URINE SPECIMENOrdering Facility: [facility] Address: [address] [place] [address] Performed By: #### 2 4356-8 ####[facility] LABORATORYCLIA [id number] [address] [place] Ketones Ql (U) Trace Abnormal Negative [facility] Comment on above: Order Comment: Speci men Type: URINE SPECIMENOrdering Facility: [facility] Address: [address] [place] [address] Performed By: #### 2 4356-8 ####[facility] LABORATORYCLIA [id number] [place] [address] [place] Leukocyte esterase Test strip Ql (U) Negative Normal Negative [facility] Comment on above: Order Comment: Speci men Type: URINE SPECIMENOrdering Facility: [facility] Address: [address] [place] [address] Performed By: #### 2 4356-8 ####[facility] LABORATORYCLIA [id number] [place] [address] [place] Nitrite Ql (U) Negative Normal Negative [facility] Comment on above: Order Comment: Speci men Type: URINE SPECIMENOrdering Facility: [facility] Address: [address] [place] [address] Performed By: #### 2 4356-8 ####[facility] LABORATORYCLIA [id number] [place] [address] [place] pH (U) 5.5 [pH] Normal 5.0-8.0 [facility] Comment on above: Order Comment: Speci men Type: URINE SPECIMENOrdering Facility: [facility] Address: [address] [place] [address] Performed By: #### 2 4356-8 ####[facility]THCLIA [id number] [place] [address] [place] Protein (U) [Mass/Vol] 2+ Abnormal Negative So [facility] Comment on above: Order Comment: Speci men Type: URINE SPECIMENOrdering Facility: [facility] Address: [address] [place] [address] Performed By: #### 2 4356-8 ####[facility] LABORATORYCLIA [id number] [place] [address] [place] RBC LM.HPF (Urine sed) [#/Area] 0-3 /HPF Normal 0-3 /HPF [facility] Comment on above: Order Comment: Speci men Type: URINE SPECIMENOrdering Facility: [facility] Address: [address] [place] [address] Performed By: #### 2 4356-8 ####[facility] LABORATORYCLIA [id number] [place] [address] [place] Specific gravity (U) [Rel density] >=1.030 High 1.005-1.030 [facility] Comment on above: Order Comment: Speci men Type: URINE SPECIMENOrdering Facility: [facility] Address: [address] [place] [address] Performed By: #### 2 4356-8 ####[facility] LABORATORYCLIA [id number] [address] [place] Urobilinogen Ql (U) 1.0 EU/dL Normal 0.2-1.0 EU/dL [facility] Comment on above: Order Comment: Speci men Type: URINE SPECIMENOrdering Facility: [facility] Address: [address] [place] [address] Performed By: #### 2 4356-8 ####[facility] LABORATORYCLIA [id number] [place] [address] [place] WBC LM.HPF (Urine sed) [#/Area] 0-5 /HPF Normal 0-5 /HPF [facility] Comment on above: Order Comment: Speci men Type: URINE SPECIMENOrdering Facility: [facility] Address: [address] [place] [address] Performed By: #### 2 4356-8 ####[facility] LABORATORYCLIA [id number] [address] Absolute lymphocyte countOrd ered By: Perico Norman on 02-26-2023 Lymphocytes Auto (Unsp spec) [#/Vol] 2.45 10*3/uL 0.83-4.51 [facility] Basophil percentageOrdered B y: Perico Norman on 02-26-2023 Basophil percentage 0-5 SEEN /hpf 0-5 [facility] Basophil percentage 271 mg/dL 74-106 [facility] Basophil percentage 9.3 g/dL 6.4-8.2 [facility] Basophil percentage 0.80 mg/dL 0.20-1.00 [facility] Basophil percentage 131 mmol/L 136-145 [facility] Basophil percentage 3.4 mmol/L 3.5-5.1 [facility] Basophil percentage 98 mmol/L 98-107 [facility] Basophils (Bld) [#/Vol] 16.2 10*3/uL 4.4-11.0 [facility] Basophils (Bld) [#/Vol] 12.3 10*3/uL 2.0-7.7 [facility] Basophils/100 WBC (Bld) 75.8 % 47-70 [facility] Basophils/100 WBC (Bld) 0.1 % 0-5 [facility] Basophils/100 WBC (Bld) 0.4 % 0-1 [facility] Bilirubin [Mass/Vol] 0.80 mg/dL 0.20-1.00 [facility] Comment on above: For patients on eltr ombopag therapy, use of Dimension [place] TBIL is not recommended. Chloride [Moles/Vol] 98 mmol/L 98-107 [facility] Eosinophils/100 WBC (Bld) 0.1 % 0-5 [facility] Glucose [Mass/Vol] 271 mg/dL 74-106 [facility] Comment on above: Glucose result great er than or equal to 200 mg/dLsuggests DIABETES MELLITUS per A.D.A. criteria. Neutrophils (Bld) [#/Vol] 12.3 10*3/uL 2.0-7.7 [facility] Neutrophils/100 WBC (Bld) 75.8 % 47-70 [facility] Potassium [Moles/Vol] 3.4 mmol/L 3.5-5.1 [facility] Protein [Mass/Vol] 9.3 g/dL 6.4-8.2 [facility] Sodium [Moles/Vol] 131 mmol/L 136-145 [facility] WBC (Bld) [#/Vol] 16.2 10*3/uL 4.4-11.0 [facility] Beta hCG serum qualOrdered B y: Perico Norman on 02-26-2023 Beta HCG ( test) Ql Negative [facility] Bilirubin Test strip Ql (U)O rdered By: Perico Norman on 02-26-2023 Bilirubin Ql (U) Negative Negative [facility] Blood erythrocytes count (nu mber/volume)Ordered By: Perico Norman on 02-26-2023 RBC (Bld) [#/Vol] 4.97 10*6/uL 4.2-5.4 [facility] Blood hemoglobin measurement (mass/volume)Ordered By: Perico Norman on 02-26-2023 Hemoglobin (Bld) [Mass/Vol] 13.3 g/dL 12.0-15.0 [facility] Blood lymphocytes/100 leukoc ytesOrdered By: Perico Norman on 02-26-2023 Lymphocytes/100 WBC (Bld) 15.1 % 19-41 [facility] Blood monocytes/100 leukocyt esOrdered By: Perico Norman on 02-26-2023 Monocytes/100 WBC (Bld) 8.0 % 0-10 [facility] Blood platelet mean volumeOr dered By: Perico Noramn on 02-26-2023 Platelet mean volume (Bld) [Entitic vol] 9.1 fL 6.2-12.0 [facility] Determination of erythrocyte mean corpuscular volume (MCV)Ordered By: Perico Norman on 02-26-2023 MCV (RBC) [Entitic vol] 80.9 fL 81-99 [facility] Direct bilirubinOrdered By: Perico Norman on 02-26-2023 Bilirubin.direct [Mass/Vol] 0.22 mg/dL 0.00-0.30 [facility] Hematocrit Auto (Bld) [Volum e fraction]Ordered By: Perico Norman on 02-26-2023 Hematocrit (Bld) [Volume fraction] 40.2 % 37-47 [facility] Ketones Test strip Ql (U)Ord ered By: Perico Norman on 02-26-2023 Ketones Ql (U) 15 mg/dl Negative [facility] - Chemistry and C hemistry - challengeOrdered By: Perico Norman on 02-26-2023 ALP [Catalytic activity/Vol] 108 U/L 45-117 [facility] ALT [Catalytic activity/Vol] 17 U/L 13-56 [facility] CO2 [Moles/Vol] 22.0 mmol/L 21.0-32.0 [facility] Globulin (S) [Mass/Vol] 5.7 g/dL 2.2-4.2 [facility] Lipase [Catalytic activity/Vol] 64 U/L 13-75 [facility] Comment on above: Please note:LIPASE r evised reference range effective 22. New Lipase methodology. Expected to produce lower values than the previous assay method. NEW Reference Range: 13 - 75 U/L Magnesium [Mass/Vol] 2.0 mg/dL 1.6-2.6 [facility] Urea nitrogen/Creatinine [Mass ratio] 13.2 mg/mg 10-20 [facility] - Hematology and Cell countsOrdered By: Perico Norman on 02-26-2023 Erythrocyte distribution width (RBC) [Entitic vol] 38.7 fL 35.1-43.9 [facility] Erythrocyte distribution width (RBC) [Ratio] 13.2 % 11.6-14.6 [facility] Immature granulocytes/100 WBC (Bld) 0.600 % 0.0-0.9 [facility] Comment on above: IG% - Immature Granu locytes (promyelocytes, myelocytes and metamyelocytes) > 1% indicates that a LEFT SHIFT is Present. MCH (RBC) [Entitic mass] 26.8 pg 27.0-32.0 [facility] Nucleated RBC/100 WBC (Bld) [Ratio] 0 % 0-5 [facility] MCHC Auto (RBC) [Mass/Vol]Or dered By: Perico Norman on 02-26-2023 MCHC (RBC) [Mass/Vol] 33.1 g/dL 32-36 [facility] Mucus LM Ql (Urine sed)Order ed By: Perico Norman on 02-26-2023 Mucus Ql (Urine sed) 0 SEEN /hpf [facility] Nitrite Test strip Ql (U)Ord ered By: Perico Norman on 02-26-2023 Nitrite Ql (U) Negative Negative [facility] No Panel InformationOrdered By: Perico Norman on 02-26-2023 Urine Transitional Epithelial Cells 0-5 SEEN /hpf 0-5 [facility] 0-5 SEEN /hpf 0-5 [facility] Estimated Creatinine Clearance Calc 50.20 ml/min [facility] Estimated GFR (MDRD) Amer 51 mL/min >60 [facility] Comment on above: GFR Calc Estimated GFR (MDRD) Non-Af Amer 42 mL/min >60 [facility] Comment on above: Non- GFR Calc 26.8 pg 27.0-32.0 [facility] 13.2 % 11.6-14.6 [facility] 38.7 fl 35.1-43.9 [facility] 0.600 % 0.0-0.9 [facility] 0 % 0-5 [facility] 42 mL/min >60 [facility] 51 mL/min >60 [facility] 50.20 ml/min [facility] 13.2 RATIO 10-20 [facility] 5.7 g/dL 2.2-4.2 [facility] 64 U/L 13-75 [facility] 108 U/L 45-117 [facility] 17 U/L 13-56 [facility] 2.0 mg/dL 1.6-2.6 [facility] 22.0 mmol/L 21.0-32.0 [facility] Platelets bldOrdered By: Bakari Norman on 02-26-2023 Platelets (Bld) [#/Vol] 483 10*3/uL 150-450 [facility] Protein Test strip Ql (U)Ord ered By: Perico Norman on 02-26-2023 Protein Ql (U) 30 mg/dl Negative [facility] Serum or plasma albumin hussein urement (mass/volume)Ordered By: Perico Norman on 02-26-2023 Albumin [Mass/Vol] 3.6 g/dL 3.2-5.0 [facility] Serum or plasma calcium hussein urement (mass/volume)Ordered By: Perico Norman on 02-26-2023 Calcium [Mass/Vol] 9.8 mg/dL 8.5-10.1 [facility] Serum or plasma creatinine m easurement (mass/volume)Ordered By: Perico Norman on 02-26-2023 Creatinine [Mass/Vol] 1.52 mg/dL 0.55-1.02 [facility] Comment on above: The validity of the calculated GFR & GFRAA in patients over 70 years has not been determined. Clinical correlation is essential. Serum or plasma urea nitroge n measurement (mass/volume)Ordered By: Perico Norman on 02-26-2023 Urea nitrogen [Mass/Vol] 20 mg/dL -18 [facility] Squamous epithelial cells de tection in urine sediment by light microscopyOrdered By: Perico Norman on 02-26-2023 Epithelial cells.squamous LM Ql (Urine sed) 0-5 SEEN /hpf 5-10 [facility] Thin prep Papanicolaou smear with manual screeningOrdered By: Perico Norman on 02-26-2023 Thin prep Papanicolaou smear with manual screening 12 U/L 15-37 [facility] Thin prep Papanicolaou smear with manual screening 11 5-15 [facility] Urine blood detectionOrdered By: Perico Norman on 02-26-2023 RBC Ql (U) 10 /ul Negative [facility] RBC Ql (U) 0 SEEN /hpf 0-5 [facility] Urine clarityOrdered By: Bakari Norman on 02-26-2023 Clarity (U) Clear Clear [facility] Urine color determinationOrd ered By: Perico Norman on 02-26-2023 Color (U) Yellow Yellow [facility] Urine glucose detectionOrder ed By: Perico Norman on 02-26-2023 Glucose Ql (U) 100 mg/dl Normal [facility] Urine leukocyte esterase det ection by dipstickOrdered By: Perico Norman on 02-26-2023 Leukocyte esterase Test strip Ql (U) 25 /ul Negative [facility] Urine pHOrdered By: Perico hernandez on 02-26-2023 pH (U) 5.0 [pH] 5.0 - 8.0 [facility] Urine sediment bacteria coun t by microscopy (number/high power field)Ordered By: Perico Norman on 02-26-2023 Bacteria LM.HPF (Urine sed) [#/Area] RARE /hpf None Seen [facility] Urine specific gravity measu rementOrdered By: Perico Norman on 02-26-2023 Specific gravity (U) [Rel density] 1.020 1.002-1.030 [facility] Urobilinogen Auto test strip Ql (U)Ordered By: Perico Norman on 02-26-2023 Urobilinogen Ql (U) Normal mg/dl Normal [facility] CBC + DIFFon 02-17-2023 Baso # 0.00 x10EE3/UL Normal 0.00 - 0.10 [facility] Comment on above: Performed By: #### 2 44201 #### [facility],[address] [place] [address]74 Basophils/100 WBC (Bld) 0.4 % Normal 0.0 - 2.0 [facility] Comment on above: Performed By: #### 2 09178 #### [facility],[address] [place], [place] [id number] CBC + DIFF Normal [facility] Comment on above: Result Comment: CBC- COMPLETE BLOOD COUNT Performed By: #### 2 97330 #### [facility],[address] [place] [address]83 EO # 0.00 x10EE3/UL Normal 0.00 - 0.50 [facility] Comment on above: Performed By: #### 2 74680 #### [facility],[address] [place], [place] [id number] Eosinophils/100 WBC (Bld) 0.2 % Normal 0.0 - 7.0 [facility] Comment on above: Performed By: #### 2 40293 #### [facility],[address] [place] [address] Erythrocyte distribution width (RBC) [Ratio] 15.1 % Normal 12.0 - 15.6 [facility] Comment on above: Performed By: #### 2 13266 #### [facility],[address] [place], [place] [id number] Hematocrit (Bld) [Volume fraction] 39.7 % Normal 34.0 - 46.0 [facility] Comment on above: Performed By: #### 2 08538 #### [facility],[address] [place], [place] [id number] Hemoglobin (Bld) [Mass/Vol] 13.3 g/dL Normal 12.0 - 16.0 [facility] Comment on above: Performed By: #### 2 10309 #### [facility],[address] [place] [address]75 Lymph # 3.30 x10EE3/UL High 0.80 - 2.80 [facility] Comment on above: Performed By: #### 2 70177 #### [facility],[address] [place], [place] [id number] Lymphocytes/100 WBC (Bld) 30.5 % Normal 20.0 - 45.0 [facility] Comment on above: Performed By: #### 2 40495 #### [facility],[address] [place] [address] MANUAL DIFF N/A Normal [facility] Comment on above: Performed By: #### 2 43222 #### [facility],[address] [place] [address] MCH (RBC) [Entitic mass] 27 pg Normal 27 - 33 [facility] Comment on above: Performed By: #### 2 30019 #### [facility],[address] [place] [address] MCHC 33 X10 3 Normal 32 - 36 [facility] Comment on above: Performed By: #### 2 56345 #### [place] [address] MCV (RBC) [Entitic vol] 80 fL Normal 80 - 99 [facility] Comment on above: Performed By: #### 2 73943 #### [place] [address] [place] # 0.60 x10EE3/UL Normal 0.20 - 1.00 [facility] Comment on above: Performed By: #### 2 18264 #### [place] [address] MONOS % 5.9 % Normal 0.0 - 10.0 [facility] Comment on above: Performed By: #### 2 54729 #### [place] [id number] Morphology Franky (Bld) [Interp] N/A Normal [facility] Comment on above: Result Comment: {CD] Performed By: #### 2 01222 #### [place] [address] Neut # 6.90 x10EE3/UL Normal 1.50 - 7.10 [facility] Comment on above: Performed By: #### 2 00907 #### [facility],[address] [place] [address] Neutrophils/100 WBC (Bld) 63.0 % Normal 46.0 - 76.0 [facility] Comment on above: Performed By: #### 2 78154 #### [facility],[address] [place] [address] PLATELET 561 x10EE3/UL High 150 - 450 [facility] Comment on above: Performed By: #### 2 96796 #### [address] [address] Platelet mean volume (Bld) [Entitic vol] 7.6 fL Normal 6.6 - 10.5 [facility] Comment on above: Result Comment: AUTO MATED DIFFERENTIAL Performed By: #### 2 13287 #### [address] [address] RBC 4.95 x 10EE6/UL Normal 4.10 - 5.30 [facility] Comment on above: Performed By: #### 2 36474 #### [address] [address] WBC 10.9 x 10EE3/UL High 4.5 - 10.8 [facility] Comment on above: Performed By: #### 2 08425 #### [facility],[address] [place] [address] 13955 CMP with eGFRon 02-17-2023 AGE 33 years Normal [facility] Comment on above: Performed By: #### 2 05526 #### [address] [address] Albumin [Mass/Vol] 3.5 g/dL Normal 3.4 - 5.0 [facility] Comment on above: Performed By: #### 2 16910 #### [address] [address] Albumin/Globulin [Mass ratio] 0.6 {ratio} Low 0.9 - 1.6 [facility] Comment on above: Performed By: #### 2 21648 #### [facility],[address] [place] [address] ALK PHOS 112 U/L Normal 46 - 116 [facility] Comment on above: Performed By: #### 2 60827 #### [facility],[address] [place] [address] ALT [Catalytic activity/Vol] 28 U/L Normal 14 - 59 [facility] Comment on above: Performed By: #### 2 73051 #### [facility],[address] [place] [address] Anion gap [Moles/Vol] 21 mmol/L High 10 - 20 [facility] Comment on above: Performed By: #### 2 78146 #### [facility],[address] [place] [address] AST [Catalytic activity/Vol] 13 U/L Normal 13 - 39 [facility] Comment on above: Performed By: #### 2 73909 #### [facility],[address] [place] [address] B/C RATIO 12 ratio Normal 0 - 30 [facility] Comment on above: Performed By: #### 2 46639 #### [facility],[address] [place], [place] [phone] Bilirubin [Mass/Vol] 0.6 mg/dL Normal 0.2 - 1.0 [facility] Comment on above: Performed By: #### 2 58316 #### [address] [address] Calcium [Mass/Vol] 9.6 mg/dL Normal 8.5 - 10.1 [facility] Comment on above: Performed By: #### 2 82040 #### [facility],[address],[place] [address] Chloride [Moles/Vol] 94 mmol/L Low 98 - 107 [facility] Comment on above: Performed By: #### 2 28849 #### [address] [address] CMP with eGFR Normal [facility] Comment on above: Result Comment: COMP REHENSIVE METABOLIC PANEL Performed By: #### 2 57249 #### [facility],[address] [place] [address] CO2 [Moles/Vol] 23.7 mmol/L Normal 21.0 - 32.0 [facility] Comment on above: Performed By: #### 2 05585 #### [address] [address] Creatinine [Mass/Vol] 1.18 mg/dL High 0.55 - 1.02 [facility] Comment on above: Performed By: #### 2 44684 #### [facility],[address] [place] [address] eGFR 53 ML/MINUTE Low 60 - 999 [facility] Comment on above: Performed By: #### 2 73440 #### [address] [address] GFR/1.73 sq M.predicted among non-blacks MDRD (S/P/Bld) [Vol rate/Area] mL/min/{1.73_m2} Normal 60 - 999 [facility] Comment on above: Result Comment: ACCO RDING TO THE NATIONAL KIDNEY DISEASE EDUCATION PROGRAM(NKDE), A NORMAL eGFR IS A VALUE GREATER THAN OR EQUAL TO 60 ML/MIN/1.73 SQ METERS. CHRONIC KIDNEY DISEASE: <60mL/MIN/1.73 SQ METERS KIDNEY FAILURE: <15mL/MIN/1.73 SQ METERS THIS TEST SHOULD ONLY BE USED FOR PATIENTS 18 YEARS OF AGE AND OLDER. Performed By: #### 2 55933 #### [address] [address] Globulin (S) [Mass/Vol] 5.4 g/dL High 1.5 - 3.8 [facility] Comment on above: Performed By: #### 2 33087 #### [facility],[address] [place] [address] Glucose [Mass/Vol] 306 mg/dL High 74 - 106 [facility] Comment on above: Performed By: #### 2 76791 #### [facility],[address] [place] [address]288 Potassium [Moles/Vol] 3.9 mmol/L Normal 3.5 - 5.1 [facility] Comment on above: Performed By: #### 2 85874 #### [facility],[address] [place] [address] 13658 Protein [Mass/Vol] 8.9 g/dL High 6.4 - 8.2 [facility] Comment on above: Performed By: #### 2 33719 #### [facility],[address] [place] [address] 07003 Sodium [Moles/Vol] 135 mmol/L Low 136 - 145 [facility] Comment on above: Performed By: #### 2 06342 #### [facility],[address] [place] [address]68 Urea nitrogen [Mass/Vol] 14 mg/dL Normal 7 - 18 [facility] Comment on above: Performed By: #### 2 28861 #### [facility],[address] [place] [address]67 DRUG SCREEN URINE MEDICon AMPHETAMINES Negative Normal [facility] Comment on above: Performed By: #### 2 13692 #### [facility],[address] [place] [address]497 B-DIAZEPINES Negative Normal [facility] Comment on above: Performed By: #### 2 23449 #### [facility],[address] [place] [address] BARBITURATES Negative Normal [facility] Comment on above: Performed By: #### 2 84464 #### [facility],[address] [place] [address] COCAINE Negative Normal [facility] Comment on above: Performed By: #### 2 74680 #### [facility],[address] [place], [place] [id number] DRUG SCREEN URINE MEDIC Normal [facility] Comment on above: Result Comment: DRUG SCREEN - URINE Performed By: #### 2 02584 #### [facility],[address] [place] [address] METHADONE Negative Normal [facility] Comment on above: Performed By: #### 2 03872 #### [facility],[address] [place] [address] OPIATES Negative Normal [facility] Comment on above: Performed By: #### 2 34724 #### [facility],[address] [place] [address] [address]CP [address] [facility] Comment on above: Performed By: #### 2 12851 #### [facility],[address] [place] [address] THC Negative Normal [facility] Comment on above: Result Comment: ERASTO ENTS RECEIVING PROTON PUMP INHIBITORS MAY DEMONSTRATE FALSE POSITIVE THC/CANNABINOID RESULTS. AN ALTERNATIVE CONFIRMATORY METHOD SHOULD BE CONSIDERED TO VERIFY POSITIVE RESULTS. Performed By: #### 2 64484 #### [facility],[address] [place], [place] [id number] LIPASEon 02-17-2023 Lipase [Catalytic activity/Vol] 103.0 U/L Normal 73.0 - 393 [facility] Comment on above: Performed By: #### 2 98592 #### [facility],[address] [place], [place] [id number] URINEon 02-17-2023 Beta HCG ( test) Ql (U) Negative Normal NEGATIVE [facility] Comment on above: Performed By: #### 2 51500 #### [facility],[address] [place] [address] EXTERNAL QC DONE? YES Normal [facility] Comment on above: Performed By: #### 2 93292 #### [facility],[address] [place] [address] INTERNAL QC PASS Normal [facility] Comment on above: Performed By: #### 2 87731 #### [facility],[address] [place] [address] URINALYSISon 02-17-2023 Amorphous NONE Normal [facility] Comment on above: Performed By: #### 2 21556 #### [facility],[address] [place] [address] Bacteria TRACE Normal [facility] Comment on above: Performed By: #### 2 24384 #### [facility],[address] [place] [address] Bilirubin Ql (U) Negative Normal NORMAL: NEGATIVE [facility] Comment on above: Performed By: #### 2 08014 #### [facility],[address] [place] [address] Casts NONE Normal [facility] Comment on above: Performed By: #### 2 79770 #### [facility],[address] [place], [place] [id number] Clarity (U) sl.cloudy Normal NORMAL: CLEAR [facility] Comment on above: Performed By: #### 2 53014 #### [facility],[address] [place], [place] [id number] Color (U) jaqui Normal NORMAL: YELLOW [facility] Comment on above: Performed By: #### 2 40068 #### [facility],[address] [place], [place] [id number] Crystals LM Nom (Urine sed) NONE Normal [facility] Comment on above: Performed By: #### 2 49740 #### [facility],[address] [place], [place] [id number] Epi Cells FEW Normal [facility] Comment on above: Performed By: #### 2 08666 #### [facility],[address] [place] [address] Glucose Ql (U) 250 Abnormal NORMAL: NORMAL [facility] Comment on above: Performed By: #### 2 62199 #### [facility],[address] [place] [address] Hemoglobin Ql (U) Negative Normal NORMAL: NEGATIVE [facility] Comment on above: Performed By: #### 2 21264 #### [facility],[address] [place] [address] Ketone 150 Abnormal NORMAL: NEGATIVE [facility] Comment on above: Performed By: #### 2 44733 #### [facility],[address] [place] [address] Leukocytes 25 Abnormal NORMAL: NEGATIVE [facility] Comment on above: Performed By: #### 2 25596 #### [facility],[address] [place] [address] Mucous NONE Normal [facility] Comment on above: Performed By: #### 2 62090 #### [facility],[address] [place] [address] Nitrite Ql (U) Negative Normal NORMAL: NEGATIVE [facility] Comment on above: Performed By: #### 2 34824 #### [facility],[address] [place] [address] pH (U) 8 [pH] Normal NORMAL: 5.0-8.0 [facility] Comment on above: Performed By: #### 2 49811 #### [facility],[address] [place] [address] 76848 Protein Ql (U) 30 Abnormal NORMAL: NEGATIVE [facility] Comment on above: Performed By: #### 2 24673 #### [facility],[address] [place] [address] Rbc NONE Normal 0-3/hpf [facility] Comment on above: Performed By: #### 2 54125 #### [facility],[address] [place] [address] Sp [place] 1.010 Normal NORMAL: 1.010-1.030 [facility] Comment on above: Performed By: #### 2 77989 #### [facility],[address] [place] [address] Specimen Type UNSPECIFIED Normal [facility] Comment on above: Performed By: #### 2 24557 #### [facility],[address] [place] [address] Urinalysis dipstick W Reflex Microscopic panel (U) SEE BELOW Normal [facility] Comment on above: Result Comment: MICR OSCOPIC Performed By: #### 2 40879 #### [facility],[address] [place] [address] Urobilinog NORM Normal NORMAL: NORMAL [facility] Comment on above: Performed By: #### 2 88953 #### [facility],[address] [place] [address] Wbc 1-5 Normal 0-5/hpf [facility] Comment on above: Performed By: #### 2 96038 #### [facility],[address] [place], [place] [id number] Yeast NONE Normal [facility] Comment on above: Performed By: #### 2 17277 #### [facility],[address] [place], [place] [id number] .Auto Diffon 02-11-2023 Basophil, Absolute 0.1 10 3/mcL Normal 0.0-0.2 [facility] ([place]) Comment on above: Performed By: #### A DIFF, GFR, MDW, CMP, ANEU, CBC, LIP #### Michael [address] [address] Basophils/100 WBC (Bld) 0.5 % Normal 0.0-2.5 A [facility] ([place]) Comment on above: Performed By: #### A DIFF, GFR, MDW, CMP, ANEU, CBC, LIP #### [address] [address] Eosinophil, Absolute 0.0 10 3/mcL Normal 0.0-0.4 [facility] ([place]) Comment on above: Performed By: #### A DIFF, GFR, MDW, CMP, ANEU, CBC, LIP #### [address] [address] Eosinophils/100 WBC (Bld) 0.2 % Normal 0.0-7.0 [facility] ([place]) Comment on above: Performed By: #### A DIFF, GFR, MDW, CMP, ANEU, CBC, LIP #### [address] [address] Lymphocyte, Absolute 4.2 10 3/mcL High 0.8-3.9 [facility] ([place]) Comment on above: Performed By: #### A DIFF, GFR, MDW, CMP, ANEU, CBC, LIP #### [address] [address] Lymphocytes/100 WBC (Bld) 32.7 % Normal 10.0-50.0 [facility] ([place]) Comment on above: Performed By: #### A DIFF, GFR, MDW, CMP, ANEU, CBC, LIP #### [address] [address] Monocyte, Absolute 0.9 10 3/mcL Normal 0.2-1.0 [facility] ([place]) Comment on above: Performed By: #### A DIFF, GFR, MDW, CMP, ANEU, CBC, LIP #### [address] [address] Monocytes/100 WBC (Bld) 7.0 % Normal 1.7-13.0 [facility] ([place]) Comment on above: Performed By: #### A DIFF, GFR, MDW, CMP, ANEU, CBC, LIP #### [address] [address] Neutrophils/100 WBC (Bld) 59.6 % Normal 37.0-80.0 [facility] ([place]) Comment on above: Performed By: #### A DIFF, GFR, MDW, CMP, ANEU, CBC, LIP #### [address] [address] Basophil, Absolute 0.1 10 3/mcL Normal 0.0-0.2 [facility] ([place]) Comment on above: Performed By: #### C MP, GFR, CBC, LIP, ADIFF, ANEU, MDW #### [address] [address] Basophils/100 WBC (Bld) 0.6 % Normal 0.0-2.5 A [facility] ([place]) Comment on above: Performed By: #### C MP, GFR, CBC, LIP, ADIFF, ANEU, MDW #### [address] [address] Eosinophil, Absolute 0.0 10 3/mcL Normal 0.0-0.4 [facility] ([place]) Comment on above: Performed By: #### C MP, GFR, CBC, LIP, ADIFF, ANEU, MDW #### [address] [address] Eosinophils/100 WBC (Bld) 0.1 % Normal 0.0-7.0 [facility] ([place] Comment on above: Performed By: #### C MP, GFR, CBC, LIP, ADIFF, ANEU, MDW #### [address] [address] Lymphocyte, Absolute 4.2 10 3/mcL High 0.8-3.9 [facility] ([place]) Comment on above: Performed By: #### C MP, GFR, CBC, LIP, ADIFF, ANEUMDW #### [address] [address] Lymphocytes/100 WBC (Bld) 26.5 % Normal 10.0-50.0 [facility] ([place]) Comment on above: Performed By: #### C MP, GFR, CBC, LIP, ADIFF, ANEU, W #### [address] [place] [address] Monocyte, Absolute 1.0 10 3/mcL Normal 0.2-1.0 [facility] ([place]) Comment on above: Performed By: #### C MP, GFR, CBC, LIP, ADIFF, ANEU, MDW #### [address] [address] Monocytes/100 WBC (Bld) 6.1 % Normal 1.7-13.0 A [facility] ([place]) Comment on above: Performed By: #### C MP, GFR, CBC, LIP, ADIFF, ANEU, MDW #### [address] [address] Neutrophils/100 WBC (Bld) 66.7 % Normal 37.0-80.0 [facility] ([place] Comment on above: Performed By: #### C MP, GFR, CBC, LIP, ADIFF, ANEU, MDW #### [address] [address] .GFRon 02-11-2023 GFR 63 ml/min/1.73sqm Normal [facility] ([place] Comment on above: Result Comment: GFR Population [...] GFR, MDW, CMP, ANEU, CBC, LIP #### [address] [address] GFR Non- 52 ml/min/1.73sqm Normal [facility] ([place]) Comment on above: Result Comment: GFR Population [...] GFR, MDW, CMP, ANEU, CBC, LIP #### [address] [address] GFR Non- 42 ml/min/1.73sqm Normal [facility] ([place] Comment on above: Result Comment: GFR Population [...] GFR, MDW, CMP, ANEU, CBC, LIP #### [address] [address] GFR 51 ml/min/1.73sqm Normal [facility] ([place]) Comment on above: Result Comment: GFR Population [...] GFR, MDW, CMP, ANEU, CBC, LIP #### [place] [address] .MDWon 02-11-2023 Monocyte Distribution Width 19.69 Normal 0.00-20.00 [facility] ([place]) Comment on above: Result Comment: For ED adult patients suspected of sepsis, MDW<=20.0 does not rule out sepsis or risk of sepsis Performed By: #### A DIFF, GFR, MDW, CMP, ANEU, CBC, LIP #### [place] [address] .NEUABSon 02-11-2023 Neutrophil, Absolute 7.6 10 3/mcL High 2.9-6.2 [facility] ([place]) Comment on above: Performed By: #### A DIFF, GFR, MDW, CMP, ANEU, CBC, LIP #### [place] [address] Neutrophil, Absolute 10.5 10 3/mcL High 2.9-6.2 A [facility] ([place]) Comment on above: Performed By: #### C MP, GFR, CBC, LIP, ADIFF, ANEU, MDW #### [place] [address] .Urinalysis Microscopic (AO) on 02-11-2023 UA Bacteria Trace Abnormal [facility] ([place] Comment on above: Performed By: #### A DIFF, GFR, MDW, CMP, ANEU, CBC, LIP #### [place] [address] UA RBC None Seen Normal None Seen [facility] ([place] Comment on above: Performed By: #### A DIFF, GFR, MDW, CMP, ANEU, CBC, LIP #### [address] [address] UA Squam Epithelial 0-5 Abnormal None Seen [facility] ([place]) Comment on above: Performed By: #### A DIFF, GFR, MDW, CMP, ANEU, CBC, LIP #### [address] [address] UA WBC 0-5 Abnormal None Seen [facility] ([place] Comment on above: Performed By: #### A DIFF, GFR, MDW, CMP, ANEU, CBC, LIP #### [address] [address] A1Con 02-11-2023 HbA1c (Bld) [Mass fraction] 9.0 % High 4.3-6.4 [facility] ([place]) Comment on above: Performed By: #### A DIFF, GFR, MDW, CMP, ANEU, CBC, LIP #### [place] [address] CBCon 02-11-2023 Erythrocyte distribution width (RBC) [Ratio] 14.8 % High 11.5-14.5 [facility] ([place] Comment on above: Performed By: #### A DIFF, GFR, MDW, CMP, ANEU, CBC, LIP #### [address] [address] Hematocrit (Bld) [Volume fraction] 34.6 % Low 37.0-47.0 [facility] ([place] Comment on above: Performed By: #### A DIFF, GFR, MDW, CMP, ANEU, CBC, LIP #### [address] [address] Hgb 11.5 G/dL Low 12.0-16.0 [facility] ([place]) Comment on above: Performed By: #### A DIFF, GFR, MDW, CMP, ANEU, CBC, LIP #### [address] [address] MCH (RBC) [Entitic mass] 26.6 pg Low 27.0-31.2 [facility] ([place] Comment on above: Performed By: #### A DIFF, GFR, MDW, CMP, ANEU, CBC, LIP #### [address] [address] MCHC 33.3 G/dL Normal 33.0-37.0 [facility] ([place] Comment on above: Performed By: #### A DIFF, GFR, MDW, CMP, ANEU, CBC, LIP #### [address] [address] MCV (RBC) [Entitic vol] 80.0 fL Normal 80.0-94.0 A [facility] ([place]) Comment on above: Performed By: #### A DIFF, GFR, MDW, CMP, ANEU, CBC, LIP #### [address] [address] Platelet 332 10 3/mcL Normal 130-400 [facility] ([place] Comment on above: Performed By: #### A DIFF, GFR, MDW, CMP, ANEU, CBC, LIP #### [address] [address] Platelet mean volume (Bld) [Entitic vol] 7.5 fL Normal 7.4-10.4 [facility] ([place] Comment on above: Performed By: #### A DIFF, GFR, MDW, CMP, ANEU, CBC, LIP #### [address] [address] RBC 4.33 10 6/mcL Normal 4.20-5.40 [facility] ([place] Comment on above: Performed By: #### A DIFF, GFR, MDW, CMP, ANEU, CBC, LIP #### [address] [address] WBC 12.7 10 3/mcL High 4.6-10.8 [facility] ([place] Comment on above: Performed By: #### A DIFF, GFR, MDW, CMP, ANEU, CBC, LIP #### [address] [address] Erythrocyte distribution width (RBC) [Ratio] 14.9 % High 11.5-14.5 [facility] ([place] Comment on above: Performed By: #### C MP, GFR, CBC, LIP, DESIRAE TORRES MDW #### [address] [address] Hematocrit (Bld) [Volume fraction] 38.8 % Normal 37.0-47.0 [facility] ([place] Comment on above: Performed By: #### C MP, GFR, CBC, LIP, MELISSA, ALDAIR MERRILL #### [place] [address] Hgb 12.7 G/dL Normal 12.0-16.0 [facility] ([place] Comment on above: Performed By: #### C MP, GFR, CBC, LIP, DESIRAE TORRES MDW #### [place] [id number] MCH (RBC) [Entitic mass] 26.6 pg Low 27.0-31.2 [facility] ([place] Comment on above: Performed By: #### C MP, GFR, CBC, LIP, ADDESIRAE ROMERO MDW #### [place] [address] MCHC 32.8 G/dL Low 33.0-37.0 [facility] ([place] Comment on above: Performed By: #### C MP, GFR, CBC, LIP, ADDESIRAE ROMERO MDW #### [place] [id number] MCV (RBC) [Entitic vol] 81.2 fL Normal 80.0-94.0 [facility] ([place]) Comment on above: Performed By: #### C MP, GFR, CBC, LIP, DESIRAE TORRES MDW #### [place] [id number] Platelet 385 10 3/mcL Normal 130-400 [facility] ([place] Comment on above: Performed By: #### C MP, GFR, CBC, LIP, ADHEATHER, ALDAIR MERRILL #### [place] [id number] Platelet mean volume (Bld) [Entitic vol] 7.6 fL Normal 7.4-10.4 [facility] ([place] Comment on above: Performed By: #### C MP, GFR, CBC, LIP, ADIFF, MD DESIRAEW #### [address] [address] RBC 4.78 10 6/mcL Normal 4.20-5.40 [facility] ([place] Comment on above: Performed By: #### C MP, GFR, CBC, LIP, ADIFF, ANEU, MDW #### [address] [address] WBC 15.8 10 3/mcL High 4.6-10.8 [facility] ([place] Comment on above: Performed By: #### C MP, GFR, CBC, LIP, ADIFF, DESIRAE, MDW #### [address] [address] CMPon 02-11-2023 ALT [Catalytic activity/Vol] 15 U/L Normal 14-59 [facility] ([place] Comment on above: Performed By: #### A DIFF, GFR, MDW, CMP, ANEU, CBC, LIP #### [address] [address] Albumin Level 3.0 G/dL Low 3.5-5.0 [facility] ([place] Comment on above: Performed By: #### A DIFF, GFR, MDW, CMP, ANEU, CBC, LIP #### [address] [address] Albumin/Globulin [Mass ratio] 0.8 {ratio} Low 1.1-2.5 [facility] ([place] Comment on above: Performed By: #### A DIFF, GFR, MDW, CMP, ANEU, CBC, LIP #### [address] [address] ALP [Catalytic activity/Vol] 78 U/L Normal 40-135 [facility] ([place] Comment on above: Performed By: #### A DIFF, GFR, MDW, CMP, ANEU, CBC, LIP #### [address] [address] AST [Catalytic activity/Vol] 17 U/L Normal 10-40 [facility] ([place] Comment on above: Performed By: #### A DIFF, GFR, MDW, CMP, ANEU, CBC, LIP #### [address] [address] Bili Total 0.6 mg/dL Normal 0.2-1.0 [facility] ([place] Comment on above: Result Comment: Use of this assay is not recommended for patients undergoing treatment with eltrombopag due to the potential for falsely elevated results. Performed By: #### A DIFF, GFR, MDW, CMP, ANEU, CBC, LIP #### [address] [address] BUN/Creatinine Ratio 6 ratio Low 7-27 [facility] ([place]) Comment on above: Performed By: #### A DIFF, GFR, MDW, CMP, ANEU, CBC, LIP #### [address] [address] Calcium [Mass/Vol] 8.5 mg/dL Normal 8.4-10.2 [facility] ([place]) Comment on above: Performed By: #### A DIFF, GFR, MDW, CMP, ANEU, CBC, LIP #### [address] [address] Chloride [Moles/Vol] 96 mmol/L Low 98-107 [facility] ([place]) Comment on above: Performed By: #### A DIFF, GFR, MDW, CMP, ANEU, CBC, LIP #### [address] [address] CO2 [Moles/Vol] 29 mmol/L Normal 22-29 [facility] ([place] Comment on above: Performed By: #### A DIFF, GFR, MDW, CMP, ANEU, CBC, LIP #### [address] [address] Creatinine [Mass/Vol] 1.21 mg/dL High 0.55-1.02 [facility] ([place]) Comment on above: Performed By: #### A DIFF, GFR, MDW, CMP, ANEU, CBC, LIP #### [address] [address] Electrolyte Balance 11.0 mEq/L Normal 4.0-15.0 [facility] ([place]) Comment on above: Performed By: #### A DIFF, GFR, MDW, CMP, ANEU, CBC, LIP #### [address] [address] Globulin 3.7 G/dL Normal [facility] ([place] Comment on above: Performed By: #### A DIFF, GFR, MDW, CMP, ANEU, CBC, LIP #### [address] [address] Glucose [Mass/Vol] 246 mg/dL High 70-105 [facility] ([place] Comment on above: Performed By: #### A DIFF, GFR, MDW, CMP, ANEU, CBC, LIP #### [address] [address] Potassium [Moles/Vol] 3.5 mmol/L Normal 3.5-5.1 [facility] ([place]) Comment on above: Performed By: #### A DIFF, GFR, MDW, CMP, ANEU, CBC, LIP #### [address] [address] Sodium [Moles/Vol] 136 mmol/L Normal 136-145 [facility] ([place] Comment on above: Performed By: #### A DIFF, GFR, MDW, CMP, ANEU, CBC, LIP #### [address] [address] Total Protein 6.7 G/dL Normal 6.4-8.2 [facility] ([place] Comment on above: Performed By: #### A DIFF, GFR, MDW, CMP, ANEU, CBC, LIP #### [address] [address] Urea nitrogen [Mass/Vol] 7 mg/dL Normal 7-18 [facility] ([place] Comment on above: Performed By: #### A DIFF, GFR, MDW, CMP, ANEU, CBC, LIP #### [address] [address] Albumin Level 3.7 G/dL Normal 3.5-5.0 [facility] ([place] Comment on above: Performed By: #### A DIFF, GFR, MDW, CMP, ANEU, CBC, LIP #### [address] [address] Albumin/Globulin [Mass ratio] 0.8 {ratio} Low 1.1-2.5 [facility] ([place] Comment on above: Performed By: #### A DIFF, GFR, MDW, CMP, ANEU, CBC, LIP #### [address] [address] ALP [Catalytic activity/Vol] 88 U/L Normal 40-135 [facility] ([place] Comment on above: Performed By: #### A DIFF, GFR, MDW, CMP, ANEU, CBC, LIP #### [address] [address] ALT [Catalytic activity/Vol] 16 U/L Normal 14-59 [facility] ([place] Comment on above: Performed By: #### A DIFF, GFR, MDW, CMP, ANEU, CBC, LIP #### [address] [address] AST [Catalytic activity/Vol] 10 U/L Normal 10-40 [facility] ([place] Comment on above: Performed By: #### A DIFF, GFR, MDW, CMP, ANEU, CBC, LIP #### [address] [address] Bili Total 0.9 mg/dL Normal 0.2-1.0 [facility] ([place] Comment on above: Result Comment: Use of this assay is not recommended for patients undergoing treatment with eltrombopag due to the potential for falsely elevated results. Performed By: #### A DIFF, GFR, MDW, CMP, ANEU, CBC, LIP #### [place] [id number] BUN/Creatinine Ratio 6 ratio Low 7-27 [facility] ([place]) Comment on above: Performed By: #### A DIFF, GFR, MDW, CMP, ANEU, CBC, LIP #### [address] [address] Calcium [Mass/Vol] 9.4 mg/dL Normal 8.4-10.2 [facility] ([place] Comment on above: Performed By: #### A DIFF, GFR, MDW, CMP, ANEU, CBC, LIP #### [address] [address] Chloride [Moles/Vol] 90 mmol/L Low 98-107 [facility] ([place] Comment on above: Performed By: #### A DIFF, GFR, MDW, CMP, ANEU, CBC, LIP #### [address] [address] CO2 [Moles/Vol] 30 mmol/L High 22-29 [facility] ([place] Comment on above: Performed By: #### A DIFF, GFR, MDW, CMP, ANEU, CBC, LIP #### [address] [address] Creatinine [Mass/Vol] 1.45 mg/dL High 0.55-1.02 [facility] ([place] Comment on above: Performed By: #### A DIFF, GFR, MDW, CMP, ANEU, CBC, LIP #### [address] [address] Electrolyte Balance 7.0 mEq/L Normal 4.0-15.0 [facility] ([place] Comment on above: Performed By: #### A DIFF, GFR, MDW, CMP, ANEU, CBC, LIP #### [address] [address] Globulin 4.4 G/dL Normal [facility] ([place] Comment on above: Performed By: #### A DIFF, GFR, MDW, CMP, ANEU, CBC, LIP #### [address] [address] Glucose [Mass/Vol] 307 mg/dL High 70-105 [facility] ([place] Comment on above: Performed By: #### A DIFF, GFR, MDW, CMP, ANEU, CBC, LIP #### [place] [address] [place], [place] [address] Potassium [Moles/Vol] 3.5 mmol/L Normal 3.5-5.1 [facility] ([place]) Comment on above: Performed By: #### A DIFF, GFR, MDW, CMP, ANEU, CBC, LIP #### [place] [address] [place], [place] [address] Sodium [Moles/Vol] 127 mmol/L Low 136-145 [facility] ([place] Comment on above: Performed By: #### A DIFF, GFR, MDW, CMP, ANEU, CBC, LIP #### [place] [address] [place], [place] [address] Total Protein 8.1 G/dL Normal 6.4-8.2 [facility] ([place] Comment on above: Performed By: #### A DIFF, GFR, MDW, CMP, ANEU, CBC, LIP #### [address] [address] Urea nitrogen [Mass/Vol] 8 mg/dL Normal 7-18 [facility]) Comment on above: Performed By: #### A DIFF, GFR, MDW, CMP, ANEU, CBC, LIP #### [address] [address] LABORATORYOrdered By: Harriet logan on 02-11-2023 Blood Glucose Testing Reason Routine (02/11/23 4:15 PM) [facility] Work Phone: Glucose [Mass/Vol] 203 mg/dL Invalid Interpretation Code 70 - 110 mg/dL [facility] Work Phone: Blood Glucose Testing Reason Routine (02/11/23 7:15 AM) [facility] Work Phone: Glucose [Mass/Vol] 237 mg/dL Invalid Interpretation Code 70 - 110 mg/dL [facility] Work Phone: LABORATORYOrdered By: Manjinder Boogie on 02-11-2023 Blood Glucose Testing Reason Routine (02/11/23 12:04 PM) [facility] Work Phone: Glucose [Mass/Vol] 220 mg/dL Invalid Interpretation Code 70 - 110 mg/dL [facility] Work Phone: LABORATORYOrdered By: SYSTEM SYSTEM on [...] Lactic Acid Lvl 1.7 mmol/L Normal 0.4-2.0 [facility] ([place] Comment on above: Performed By: #### A DIFF, GFR, MDW, CMP, ANEU, CBC, LIP #### [address] [address] LIPon 02-11-2023 Lipase Level 39 U/L Normal 16-77 [facility] ([place] Comment on above: Performed By: #### A DIFF, GFR, MDW, CMP, ANEU, CBC, LIP #### [address] [address] MGon 02-11-2023 Magnesium [Mass/Vol] 2.1 mg/dL Normal 1.8-2.4 [facility] ([place] Comment on above: Performed By: #### A DIFF, GFR, MDW, CMP, ANEU, CBC, LIP #### [address] [address] NM GASTRIC EMPTYING STUDYon 02-11-2023 NM GASTRIC [...] 02/11/2023 3:41:00 PM Ordering Provider: MARTI WEBB Normal [facility] ([place]) No Panel Informationon 02-11 Microscopic examination of blood, culture Culture has been received in lab and is no growth to date. Routine cultures are held for 5 days. [facility] Work Phone: PREGUon 02-11-2023 HCG ( test) Ql (U) Negative Normal [facility] ([place] Comment on above: Performed By: #### A DIFF, GFR, MDW, CMP, ANEU, CBC, LIP #### [place] [id number] [place], [place] [address] test (u) int Not detected Invalid Interpretation Code [facility] ([place] Comment on above: Performed By: #### A DIFF, GFR, MDW, CMP, ANEU, CBC, LIP #### [facility] [address] [place], [place] [address] TOXSCon 02-11-2023 U Ampheta (AO) Negative [facility] ([place]) Comment on above: Performed By: #### A DIFF, GFR, MDW, CMP, ANEU, CBC, LIP #### [address] [address] U Marifer (AO) Negative [facility] ([place]) Comment on above: Performed By: #### A DIFF, GFR, MDW, CMP, ANEU, CBC, LIP #### [address] [address] U Ayan (AO) Negative [facility] ([place]) Comment on above: Performed By: #### A DIFF, GFR, MDW, CMP, ANEU, CBC, LIP #### [address] [address] U Cannab (AO) Positive [facility] ([place]) Comment on above: Performed By: #### A DIFF, GFR, MDW, CMP, ANEU, CBC, LIP #### [address] [address] U Cocaine (AO) Negative [facility] ([place]) Comment on above: Performed By: #### A DIFF, GFR, MDW, CMP, ANEU, CBC, LIP #### [address] [address] U Methadone (AO) Negative [facility] ([place]) Comment on above: Performed By: #### A DIFF, GFR, MDW, CMP, ANEU, CBC, LIP #### [address] [address] U PCP (AO) Negative [facility] ([place]) Comment on above: Performed By: #### A DIFF, GFR, MDW, CMP, ANEU, CBC, LIP #### [address] [address] U TCA (AO) Negative [facility] ([place]) Comment on above: Performed By: #### A DIFF, GFR, MDW, CMP, ANEU, CBC, LIP #### [address] [address] Urine Opiates (AO) Positive Normal [facility] ([place]) Comment on above: Performed By: #### A DIFF, GFR, MDW, CMP, ANEU, CBC, LIP #### [address] [address] UAon 02-11-2023 Color (U) Yellow Normal [facility] ([place] Comment on above: Performed By: #### A DIFF, GFR, MDW, CMP, ANEU, CBC, LIP #### [address] [address] Glucose (U) [Mass/Vol] 100 mg/dL Abnormal Negative [facility] ([place]) Comment on above: Performed By: #### A DIFF, GFR, MDW, CMP, ANEU, CBC, LIP #### [address] [address] Ketones Ql (U) Negative Normal Negative [facility] ([place] Comment on above: Performed By: #### A DIFF, GFR, MDW, CMP, ANEU, CBC, LIP #### [address] [address] UA Appear Clear Normal Clear [facility] ([place] Comment on above: Performed By: #### A DIFF, GFR, MDW, CMP, ANEU, CBC, LIP #### [address] [address] UA Blood Trace Abnormal Negative [facility] ([place] Comment on above: Performed By: #### A DIFF, GFR, MDW, CMP, ANEU, CBC, LIP #### [address] [address] UA Leuk Est Negative Normal Negative [facility] ([place] Comment on above: Performed By: #### A DIFF, GFR, MDW, CMP, ANEU, CBC, LIP #### [address] [address] UA Nitrite Negative Normal Negative [facility] ([place] Comment on above: Performed By: #### A DIFF, GFR, MDW, CMP, ANEU, CBC, LIP #### [address] [address] UA pH 7.0 Normal 5.0 - 8.0 [facility] ([place] Comment on above: Performed By: #### A DIFF, GFR, MDW, CMP, ANEU, CBC, LIP #### [address] [address] UA Protein Negative Normal Negative [facility] ([place] Comment on above: Performed By: #### A DIFF, GFR, MDW, CMP, ANEU, CBC, LIP #### [address] [address] UA Spec Grav 1.015 Normal 1.015-1.025 [facility] ([place] Comment on above: Performed By: #### A DIFF, GFR, MDW, CMP, ANEU, CBC, LIP #### [address] [address] UA Specimen Type Void Normal [facility] ([place] Comment on above: Performed By: #### A DIFF, GFR, MDW, CMP, ANEU, CBC, LIP #### [address] [address] UA Urobilinogen 0.2 E.U./dL Normal 0.2-1.0 [facility] ([place] Comment on above: Performed By: #### A DIFF, GFR, MDW, CMP, ANEU, CBC, LIP #### [address] [address] Urobilinogen (U) [Mass/Vol] Negative Normal Negative [facility] ([place] Comment on above: Performed By: #### A DIFF, GFR, MDW, CMP, ANEU, CBC, LIP #### [address] [address] Color (U) Yellow Normal [facility] ([place] Comment on above: Performed By: #### A DIFF, GFR, MDW, CMP, ANEU, CBC, LIP #### [address] [address] Glucose (U) [Mass/Vol] 100 mg/dL Abnormal Negative [facility] ([place]) Comment on above: Performed By: #### A DIFF, GFR, MDW, CMP, ANEU, CBC, LIP #### [address] [address] Ketones Ql (U) 15 mg/dL Abnormal Negative [facility] ([place] Comment on above: Performed By: #### A DIFF, GFR, MDW, CMP, ANEU, CBC, LIP #### [address] [address] UA Appear Clear Normal Clear [facility] ([place] Comment on above: Performed By: #### A DIFF, GFR, MDW, CMP, ANEU, CBC, LIP #### [address] [address] UA Blood Trace Abnormal Negative [facility] ([place] Comment on above: Performed By: #### A DIFF, GFR, MDW, CMP, ANEU, CBC, LIP #### [address] [address] UA Leuk Est Trace Abnormal Negative [facility] ([place] Comment on above: Performed By: #### A DIFF, GFR, MDW, CMP, ANEU, CBC, LIP #### [address] [address] UA Nitrite Negative Normal Negative [facility] ([place] Comment on above: Performed By: #### A DIFF, GFR, MDW, CMP, ANEU, CBC, LIP #### [address] [address] UA pH 5.5 Normal 5.0 - 8.0 [facility] ([place] Comment on above: Performed By: #### A DIFF, GFR, MDW, CMP, ANEU, CBC, LIP #### [address] [address] UA Protein Negative Normal Negative [facility] ([place] Comment on above: Performed By: #### A DIFF, GFR, MDW, CMP, ANEU, CBC, LIP #### [address] [address] UA Spec Grav <=1.005 Abnormal 1.015-1.025 [facility] ([place] Comment on above: Performed By: #### A DIFF, GFR, MDW, CMP, ANEU, CBC, LIP #### [facility] [address] [place], [place] [address] UA Specimen Type Clean Catch Normal [facility] ([place] Comment on above: Performed By: #### A DIFF, GFR, MDW, CMP, ANEU, CBC, LIP #### [facility] [address] [place], [place] [address] UA Urobilinogen 0.2 E.U./dL Normal 0.2-1.0 [facility] ([place] Comment on above: Performed By: #### A DIFF, GFR, MDW, CMP, ANEU, CBC, LIP #### [place] [address] [place], [place] [address] Urobilinogen (U) [Mass/Vol] Negative Normal Negative [facility] ([place] Comment on above: Performed By: #### A DIFF, GFR, MDW, CMP, ANEU, CBC, LIP #### [place] [address] [place], [place] [address] US ABDOMEN COMPLETEon 2022 US ABDOMEN COMPLETE [...] 02/11/2023 1:29:01 PM Ordering Provider: MARTI Maldonado [facility] ([place] PELVIS NON-OB W/TRANSVAGI NALon 02-11-2023 US [...] Date: 02/11/2023 12:11:13 PM Ordering Provider: MARTI KENNEN [facility] ([place]) XR ABDOMEN APon 02-11-2023 XR ABDOMEN AP [...] 02/11/2023 9:28:54 AM Ordering Provider: MARTI WEBB [facility]) LABORATORYOrdered By: SYSTEM SYSTEM on 02-10-2023 Albumin [...] Auto (Unsp spec) [#/Vol] 1.67 10*3/uL 0.83-4.51 [facility] Amorphous sediment detection in urine sediment by light microscopyOrdered By: Javy Doss on 02-08-2023 Amorphous sediment LM Ql (Urine sed) 3+ PHOS [facility] Basophil percentageOrdered B y: Jvay Doss on 02-08-2023 Basophil percentage 0-5 SEEN /hpf 0-5 [facility] Basophil percentage 325 mg/dL 74-106 [facility] Basophil percentage 9.2 g/dL 6.4-8.2 [facility] Basophil percentage 0.70 mg/dL 0.20-1.00 [facility] Basophil percentage 134 mmol/L 136-145 [facility] Basophil percentage 3.7 mmol/L 3.5-5.1 [facility] Basophil percentage 96 mmol/L 98-107 [facility] Basophils (Bld) [#/Vol] 9.1 10*3/uL 4.4-11.0 [facility] Basophils (Bld) [#/Vol] 7.0 10*3/uL 2.0-7.7 [facility] Basophils/100 WBC (Bld) 0.2 % 0-1 [facility] Basophils/100 WBC (Bld) 77.0 % 47-70 [facility] Basophils/100 WBC (Bld) 0.0 % 0-5 [facility] Bilirubin [Mass/Vol] 0.70 mg/dL 0.20-1.00 [facility] Comment on above: For patients on eltr ombopag therapy, use of [facility] [place] TBIL is not recommended. Chloride [Moles/Vol] 96 mmol/L 98-107 [facility] Eosinophils/100 WBC (Bld) 0.0 % 0-5 [facility] Glucose [Mass/Vol] 325 mg/dL 74-106 [facility] Comment on above: Glucose result great er than or equal to 200 mg/dLsuggests DIABETES MELLITUS per A.D.A. criteria. Neutrophils (Bld) [#/Vol] 7.0 10*3/uL 2.0-7.7 [facility] Neutrophils/100 WBC (Bld) 77.0 % 47-70 [facility] Potassium [Moles/Vol] 3.7 mmol/L 3.5-5.1 [facility] Protein [Mass/Vol] 9.2 g/dL 6.4-8.2 [facility] Sodium [Moles/Vol] 134 mmol/L 136-145 [facility] WBC (Bld) [#/Vol] 9.1 10*3/uL 4.4-11.0 [facility] Beta hCG serum qualOrdered B y: Javy Doss on 02-08-2023 Beta HCG ( test) Ql Negative [facility] Bilirubin Test strip Ql (U)O rdered By: Javy Doss on 02-08-2023 Bilirubin Ql (U) Negative Negative [facility] Blood erythrocytes count (nu mber/volume)Ordered By: Javy Doss on 02-08-2023 RBC (Bld) [#/Vol] 5.27 10*6/uL 4.2-5.4 [facility] Blood hemoglobin measurement (mass/volume)Ordered By: Javy Doss on 02-08-2023 Hemoglobin (Bld) [Mass/Vol] 13.9 g/dL 12.0-15.0 [facility] Blood lymphocytes/100 leukoc ytesOrdered By: Javy Doss on 02-08-2023 Lymphocytes/100 WBC (Bld) 18.4 % 19-41 [facility] Blood monocytes/100 leukocyt esOrdered By: Javy Doss on 02-08-2023 Monocytes/100 WBC (Bld) 3.6 % 0-10 [facility] Blood platelet mean volumeOr dered By: Javy Doss on 02-08-2023 Platelet mean volume (Bld) [Entitic vol] 9.3 fL 6.2-12.0 [facility] Determination of erythrocyte mean corpuscular volume (MCV)Ordered By: Javy Doss on 02-08-2023 MCV (RBC) [Entitic vol] 81.2 fL 81-99 [facility] Hematocrit Auto (Bld) [Volum e fraction]Ordered By: Javy Doss on 02-08-2023 Hematocrit (Bld) [Volume fraction] 42.8 % 37-47 [facility] Ketones Test strip Ql (U)Ord ered By: Javy Doss on 02-08-2023 Ketones Ql (U) 50 mg/dl Negative [facility] Laboratory - Chemistry and C hemistry - challengeOrdered By: Javy Doss on 02-08-2023 ALP [Catalytic activity/Vol] 105 U/L 45-117 [facility] ALT [Catalytic activity/Vol] 24 U/L 13-56 [facility] CO2 [Moles/Vol] 30.0 mmol/L 21.0-32.0 [facility] Globulin (S) [Mass/Vol] 5.4 g/dL 2.2-4.2 [facility] Lipase [Catalytic activity/Vol] 38 U/L 13-75 [facility] Comment on above: Please note:LIPASE r evised reference range effective 22. New Lipase methodology. Expected to produce lower values than the previous assay method. NEW Reference Range: 13 - 75 U/L Urea nitrogen/Creatinine [Mass ratio] 7.4 mg/mg 10-20 [facility] Laboratory - Hematology and Cell countsOrdered By: Javy Doss on 02-08-2023 Erythrocyte distribution width (RBC) [Entitic vol] 39.1 fL 35.1-43.9 [facility] Erythrocyte distribution width (RBC) [Ratio] 13.3 % 11.6-14.6 [facility] Immature granulocytes/100 WBC (Bld) 0.800 % 0.0-0.9 [facility] Comment on above: IG% - Immature Granu locytes (promyelocytes, myelocytes and metamyelocytes) > 1% indicates that a LEFT SHIFT is Present. MCH (RBC) [Entitic mass] 26.4 pg 27.0-32.0 [facility] Nucleated RBC/100 WBC (Bld) [Ratio] 0 % 0-5 [facility] MCHC Auto (RBC) [Mass/Vol]Or dered By: Javy Doss on 02-08-2023 MCHC (RBC) [Mass/Vol] 32.5 g/dL 32-36 [facility] Mucus LM Ql (Urine sed)Order ed By: Javy Doss on 02-08-2023 Mucus Ql (Urine sed) 0 SEEN /hpf [facility] Nitrite Test strip Ql (U)Ord ered By: Javy Doss on 02-08-2023 Nitrite Ql (U) Negative Negative [facility] No Panel InformationOrdered By: Javy Doss on 02-08-2023 Estimated Creatinine Clearance Calc 62.55 ml/min [facility] Estimated GFR (MDRD) Amer 66 mL/min >60 [facility] Comment on above: GFR Calc Estimated GFR (MDRD) Non-Af Amer 55 mL/min >60 [facility] Comment on above: Non- GFR Calc 26.4 pg 27.0-32.0 [facility] 13.3 % 11.6-14.6 [facility] 39.1 fl 35.1-43.9 [facility] 0.800 % 0.0-0.9 [facility] 0 % 0-5 [facility] 55 mL/min >60 [facility] 66 mL/min >60 [facility] 62.55 ml/min [facility] 7.4 RATIO 10-20 [facility] 5.4 g/dL 2.2-4.2 [facility] 38 U/L 13-75 [facility] 105 U/L 45-117 [facility] 24 U/L 13-56 [facility] 30.0 mmol/L 21.0-32.0 [facility] Platelets bldOrdered By: Haylee benitez Romario on 02-08-2023 Platelets (Bld) [#/Vol] 394 10*3/uL 150-450 [facility] Protein Test strip Ql (U)Ord ered By: Haylee Romario on 02-08-2023 Protein Ql (U) 30 mg/dl Negative [facility] Serum or plasma albumin hussein urement (mass/volume)Ordered By: Javy Doss on 02-08-2023 Albumin [Mass/Vol] 3.8 g/dL 3.2-5.0 [facility] Serum or plasma albumin/glob ulin mass ratioOrdered By: Javy Doss on 02-08-2023 Albumin/Globulin [Mass ratio] 0.7 {ratio} 0.9-2.4 [facility] Serum or plasma calcium hussein urement (mass/volume)Ordered By: Javy Doss on 02-08-2023 Calcium [Mass/Vol] 9.7 mg/dL 8.5-10.1 [facility] Serum or plasma creatinine m easurement (mass/volume)Ordered By: Hayleeus Doss on 02-08-2023 Creatinine [Mass/Vol] 1.22 mg/dL 0.55-1.02 [facility] Comment on above: The validity of the calculated GFR & GFRAA in patients over 70 years has not been determined. Clinical correlation is essential. Serum or plasma urea nitroge n measurement (mass/volume)Ordered By: Javy Doss on 02-08-2023 Urea nitrogen [Mass/Vol] 9 mg/dL 7-18 [facility] Squamous epithelial cells de tection in urine sediment by light microscopyOrdered By: Javy Doss on 02-08-2023 Epithelial cells.squamous LM Ql (Urine sed) 0-5 SEEN /hpf 5-10 [facility] Thin prep Papanicolaou smear with manual screeningOrdered By: Javy Doss on 02-08-2023 Thin prep Papanicolaou smear with manual screening 15 U/L 15-37 [facility] Thin prep Papanicolaou smear with manual screening 8 5-15 [facility] Urine blood detectionOrdered By: Remus Romario on 02-08-2023 RBC Ql (U) Negative Negative [facility] RBC Ql (U) 0 SEEN /hpf 0-5 [facility] Urine clarityOrdered By: Rem us Romario on 02-08-2023 Clarity (U) Sl. Cloudy Clear [facility] Urine color determinationOrd ered By: Remus Doss on 02-08-2023 Color (U) Yellow Yellow [facility] Urine glucose detectionOrder ed By: Remus Romario on 02-08-2023 Glucose Ql (U) 1000 mg/dl Normal [facility] Urine leukocyte esterase det ection by dipstickOrdered By: Remus Romario on 02-08-2023 Leukocyte esterase Test strip Ql (U) 25 /ul Negative [facility] Urine pHOrdered By: Javy Tee gur on 02-08-2023 pH (U) 8.0 [pH] 5.0 - 8.0 [facility] Urine sediment bacteria coun t by microscopy (number/high power field)Ordered By: Javy Doss on 02-08-2023 Bacteria LM.HPF (Urine sed) [#/Area] 0 /[HPF] None Seen [facility] Urine specific gravity measu rementOrdered By: Remus Doss on 02-08-2023 Specific gravity (U) [Rel density] 1.010 1.002-1.030 [facility] Urobilinogen Auto test strip Ql (U)Ordered By: Remus Doss on 02-08-2023 Urobilinogen Ql (U) Normal mg/dl Normal [facility] Absolute lymphocyte countOrd ered By: Fabricio Guevara on 02-04-2023 Lymphocytes Auto (Unsp spec) [#/Vol] 3.25 10*3/uL 0.83-4.51 [facility] Basophil percentageOrdered B y: Fabricio Guevara on 02-04-2023 Basophil percentage 259 mg/dL 74-106 [facility] Basophil percentage 8.1 g/dL 6.4-8.2 [facility] Basophil percentage 0.40 mg/dL 0.20-1.00 [facility] Basophil percentage 138 mmol/L 136-145 [facility] Basophil percentage 3.5 mmol/L 3.5-5.1 [facility] Basophil percentage 103 mmol/L 98-107 [facility] Basophils (Bld) [#/Vol] 8.8 10*3/uL 4.4-11.0 [facility] Basophils (Bld) [#/Vol] 4.9 10*3/uL 2.0-7.7 [facility] Basophils/100 WBC (Bld) 0.3 % 0-1 [facility] Basophils/100 WBC (Bld) 55.7 % 47-70 [facility] Basophils/100 WBC (Bld) 0.5 % 0-5 [facility] Bilirubin [Mass/Vol] 0.40 mg/dL 0.20-1.00 [facility] Comment on above: For patients on eltr ombopag therapy, use of Dimension [place] TBIL is not recommended. Chloride [Moles/Vol] 103 mmol/L 98-107 [facility] Eosinophils/100 WBC (Bld) 0.5 % 0-5 [facility] Glucose [Mass/Vol] 259 mg/dL 74-106 [facility] Comment on above: Glucose result great er than or equal to 200 mg/dLsuggests DIABETES MELLITUS per A.D.A. criteria. Neutrophils (Bld) [#/Vol] 4.9 10*3/uL 2.0-7.7 [facility] Neutrophils/100 WBC (Bld) 55.7 % 47-70 [facility] Potassium [Moles/Vol] 3.5 mmol/L 3.5-5.1 [facility] Protein [Mass/Vol] 8.1 g/dL 6.4-8.2 [facility] Sodium [Moles/Vol] 138 mmol/L 136-145 [facility] WBC (Bld) [#/Vol] 8.8 10*3/uL 4.4-11.0 [facility] Blood erythrocytes count (nu mber/volume)Ordered By: Fabricio Guevara on 02-04-2023 RBC (Bld) [#/Vol] 4.65 10*6/uL 4.2-5.4 [facility] Blood hemoglobin measurement (mass/volume)Ordered By: Fabricio Guevara on 02-04-2023 Hemoglobin (Bld) [Mass/Vol] 12.5 g/dL 12.0-15.0 [facility] Blood lymphocytes/100 leukoc ytesOrdered By: Fabricio Guevara on 02-04-2023 Lymphocytes/100 WBC (Bld) 37.0 % 19-41 [facility] Blood monocytes/100 leukocyt esOrdered By: Fabricio Guevara on 02-04-2023 Monocytes/100 WBC (Bld) 5.8 % 0-10 [facility] Blood platelet mean volumeOr dered By: Fabricio Guevara on 02-04-2023 Platelet mean volume (Bld) [Entitic vol] 9.4 fL 6.2-12.0 [facility] Determination of erythrocyte mean corpuscular volume (MCV)Ordered By: Fabricio Guevara on 02-04-2023 MCV (RBC) [Entitic vol] 80.0 fL 81-99 [facility] Hematocrit Auto (Bld) [Volum e fraction]Ordered By: Fabricio Guevara on 02-04-2023 Hematocrit (Bld) [Volume fraction] 37.2 % 37-47 [facility] Laboratory - Chemistry and C hemistry - challengeOrdered By: Fabricio Guevara on 02-04-2023 ALP [Catalytic activity/Vol] 94 U/L 45-117 [facility] ALT [Catalytic activity/Vol] 29 U/L 13-56 [facility] CO2 [Moles/Vol] 25.0 mmol/L 21.0-32.0 [facility] Globulin (S) [Mass/Vol] 4.7 g/dL 2.2-4.2 [facility] Lipase [Catalytic activity/Vol] 51 U/L 13-75 [facility] Comment on above: Please note:LIPASE r evised reference range effective 22. New Lipase methodology. Expected to produce lower values than the previous assay method. NEW Reference Range: 13 - 75 U/L Urea nitrogen/Creatinine [Mass ratio] 7.0 mg/mg 10-20 [facility] Laboratory - Hematology and Cell countsOrdered By: Fabricio Guevara on 02-04-2023 Erythrocyte distribution width (RBC) [Entitic vol] 39.2 fL 35.1-43.9 [facility] Erythrocyte distribution width (RBC) [Ratio] 13.6 % 11.6-14.6 [facility] Immature granulocytes/100 WBC (Bld) 0.700 % 0.0-0.9 [facility] Comment on above: IG% - Immature Granu locytes (promyelocytes, myelocytes and metamyelocytes) > 1% indicates that a LEFT SHIFT is Present. MCH (RBC) [Entitic mass] 26.9 pg 27.0-32.0 [facility] Nucleated RBC/100 WBC (Bld) [Ratio] 0 % 0-5 [facility] MCHC Auto (RBC) [Mass/Vol]Or dered By: Fabricio Guevara on 02-04-2023 MCHC (RBC) [Mass/Vol] 33.6 g/dL 32-36 [facility] No Panel InformationOrdered By: Fabricio Guevara on 02-04-2023 Estimated GFR (MDRD) Amer 84 mL/min >60 [facility] Estimated GFR (MDRD) Non-Af Amer 69 mL/min >60 [facility] 26.9 pg 27.0-32.0 [facility] 13.6 % 11.6-14.6 [facility] 39.2 fl 35.1-43.9 [facility] 0.700 % 0.0-0.9 [facility] 0 % 0-5 [facility] 69 mL/min >60 [facility] 84 mL/min >60 [facility] 7.0 RATIO 10-20 [facility] 4.7 g/dL 2.2-4.2 [facility] 51 U/L 13-75 [facility] 94 U/L 45-117 [facility] 29 U/L 13-56 [facility] 25.0 mmol/L 21.0-32.0 [facility] Platelets bldOrdered By: Chidi Guevara on 02-04-2023 Platelets (Bld) [#/Vol] 358 10*3/uL 150-450 [facility] Serum or plasma albumin hussein urement (mass/volume)Ordered By: Fabricio Guevara on 02-04-2023 Albumin [Mass/Vol] 3.4 g/dL 3.2-5.0 [facility] Serum or plasma albumin/glob ulin mass ratioOrdered By: Fabricio Guevara on 02-04-2023 Albumin/Globulin [Mass ratio] 0.7 {ratio} 0.9-2.4 [facility] Serum or plasma calcium hussein urement (mass/volume)Ordered By: Fabricio Guevara on 02-04-2023 Calcium [Mass/Vol] 9.2 mg/dL 8.5-10.1 [facility] Serum or plasma creatinine m easurement (mass/volume)Ordered By: Fabricio Guevara on 02-04-2023 Creatinine [Mass/Vol] 1.00 mg/dL 0.55-1.02 [facility] Comment on above: The validity of the calculated GFR & GFRAA in patients over 70 years has not been determined. Clinical correlation is essential. Serum or plasma urea nitroge n measurement (mass/volume)Ordered By: Fabricio Guevara on 02-04-2023 Urea nitrogen [Mass/Vol] 7 mg/dL 7-18 [facility] Thin prep Papanicolaou smear with manual screeningOrdered By: Fabricio Guevara on 02-04-2023 Thin prep Papanicolaou smear with manual screening 18 U/L 15-37 [facility] Thin prep Papanicolaou smear with manual screening 10 5-15 [facility] CBC W Auto Differential pane l (Bld)Ordered By: Yashira Cleaning on 01-24-2023 Basophils (Bld) [#/Vol] 0.0 10*3/uL 0.0 - 0.2 10*3/uL [facility] Basophils/100 WBC (Bld) 0.3 % 0.0 - 2.0 % [facility] Eosinophils (Bld) [#/Vol] 0.0 10*3/uL 0.0 - 0.5 10*3/uL [facility] Eosinophils/100 WBC (Bld) 0.3 % Low 1.0 - 6.0 % [facility] Erythrocyte distribution width (RBC) [Ratio] 13.9 % 11.5 - 14.5 % [facility] Hematocrit (Bld) [Volume fraction] 37.2 % 35.0 - 47.0 % [facility] Hemoglobin (Bld) [Mass/Vol] 12.4 g/dL 11.7 - 16.0 g/dL [facility] Immature granulocytes (Bld) [#/Vol] 0.1 10*3/uL High NINF - 0.0 10*3/uL [facility] Immature granulocytes/100 WBC (Bld) 0.6 % High NINF - 0.0 % [facility] Interpretation and review of laboratory results Abnormal [facility] Lymphocytes (Bld) [#/Vol] 2.6 10*3/uL 1.0 - 4.3 10*3/uL [facility] Lymphocytes/100 WBC (Bld) 33.6 % 20.0 - 40.0 % [facility] MCH (RBC) [Entitic mass] 26.3 pg 26.0 - 34.0 pg [facility] MCHC (RBC) [Mass/Vol] 33.3 % 32.0 - 36.0 % [facility] MCV (RBC) [Entitic vol] 79.0 fL Low 80.0 - 98.0 fL [facility] Monocytes (Bld) [#/Vol] 0.5 10*3/uL 0.0 - 0.8 10*3/uL [facility] Monocytes/100 WBC (Bld) 5.9 % 2.0 - 10.0 % [facility] Neutrophils (Bld) [#/Vol] 4.6 10*3/uL 1.8 - 7.0 10*3/uL [facility] Neutrophils/100 WBC (Bld) 59.3 % 40.0 - 80.0 % [facility] Platelet mean volume (Bld) [Entitic vol] 9.1 fL 7.4 - 12.4 fL [facility] Comment on above: MPV is a calculated measurement using platelet volume ratio Platelets (Bld) [#/Vol] 342 10*3/uL 140 - 440 10*3/uL [facility] RBC (Bld) [#/Vol] 4.71 10*6/uL 3.8 - 5.20 10*6/uL [facility] WBC (Bld) [#/Vol] 7.8 10*3/uL 3.6 - 10.7 10*3/uL [facility] Comprehensive metabolic 1998 panelon 01-24-2023 Albumin [Mass/Vol] 4.2 g/dL 3.5 - 5.0 g/dL [facility] ALP [Catalytic activity/Vol] 74 U/L 38 - 126 U/L [facility] ALT [Catalytic activity/Vol] 20 U/L 0 - 34 U/L [facility] Anion gap [Moles/Vol] 10 mmol/L 3 - 13 mmol/L [facility] AST [Catalytic activity/Vol] 28 U/L 15 - 46 U/L [facility] Bilirubin [Mass/Vol] 0.7 mg/dL 0.2 - 1 .3 mg/dL [facility] Calcium [Mass/Vol] 9.4 mg/dL 8.4 - 10. 4 mg/dL [facility] Chloride [Moles/Vol] 100 mmol/L 98 - 10 7 mmol/L [facility] CO2 [Moles/Vol] 25 mmol/L 22 - 30 mmol/L [facility] Creatinine [Mass/Vol] 0.78 mg/dL 0.52 - 1.04 mg/dL [facility] GFR/1.73 sq M.predicted MDRD (S/P/Bld) [Vol rate/Area] - PINF [facility] Comment on above: Calculation based on the Chronic Kidney Disease Epidemiology Collaboration (CKD-EPI) equation refit without adjustment for race Glucose [Mass/Vol] 220 mg/dL High 70 - 100 mg/dL [facility] Interpretation and review of laboratory results Abnormal [facility] Potassium [Moles/Vol] 3.6 mmol/L 3.5 - 5.1 mmol/L [facility] Protein [Mass/Vol] 8.1 g/dL 6.3 - 8.2 g/dL [facility] Sodium [Moles/Vol] 135 mmol/L 135 - 145 mmol/L [facility] Urea nitrogen [Mass/Vol] 9 mg/dL 7 - 17 mg/dL [facility] ECG 12-LEADon 01-24-2023 ECG 12-LEAD IMPRESSION: SINUS RHYTHM VENTRICULAR PREMATURE COMPLEX CONSIDER LEFT VENTRICULAR HYPERTROPHY No previous ECG available for comparison Electronically Signed On 01-24-2023 11:21:48 EDT by Stephan Ramirez [facility] ED Nursing Noteon 01-24-2023 ED Nursing Note Patient to room 15 w ith c/o vomiting for 3 weeks. Patient reports being at [facility] and being told it was [facility], and there was nothing more they could do for her. Patient reports having Zofran at home that she doesn't take, because it has not relieved her symptoms. V/S obtained, call light within reach. [facility] ED Provider Noteon ED Provider Note [facility] ED EMERGENCY DEPARTMENT ENCOUNTER Pt Name: Ghislaine Givens Birthdate 1990 Date of evaluation: 01/24/2023 Provider: Stephan Ramirez MD CHIEF COMPLAINT Chief Complaint Patient [...] - Normal (more content not included)... Normal [facility] Laboratory - Chemistry and C hemistry - challengeon 01-24-2023 Troponin I.cardiac [Mass/Vol] ng/mL 0.000 - 0.034 ng/mL [facility] Lipase [Catalytic activity/Vol] 130 U/L 23 - 300 U/L [facility] Magnesium [Mass/Vol] 1.8 mg/dL 1.6 - 2 .3 mg/dL [facility] Beta HCG ( test) Ql Negative Negative [facility] Comment on above: Please note: Very di lute urine specimens, as indicated by a low specific gravity, may not contain small business representative levels of hCG. If is still suspected, a first morning urine specimen should be collected 48 hours later and tested. Beta HCG ( test) Ql (U) is the most common reason for HCG in urine, although choriocarcinoma, hydatidiform mole, and certain nontrophoblastic malignancies also result in detectable urinary HCG levels. Sensitivity = 20mIU/mL. [facility] No Panel Informationon 01-24 P [place] -3 degrees [facility] GA Interval 128 ms [facility] QRS [place] -11 degrees [facility] QRSD Interval 86 ms [facility] QT Interval 396 ms [facility] QTC Interval 425 ms [facility] T Wave [place] 8 degrees [facility] SINUS RHYTHM VENTRICULAR PREMATURE COMPLEX CONSIDER LEFT VENTRICULAR HYPERTROPHY No previous ECG available for comparison Electronically Signed On 01-24-2023 11:21:48 EDT by Stephan Ramirez CV Stephan Camacho MD - 01/24/2023 IMPRESSION: SINUS RHYTHM VENTRICULAR PREMATURE COMPLEX CONSIDER LEFT VENTRICULAR HYPERTROPHY No previous ECG available for comparison Electronically Signed On 01-24-2023 11:21:48 EDT by Stephan Ramirez [facility] Interpretation and review of laboratory results Normal [facility] Troponin I.cardiac [Mass/Vol ]on 01-24-2023 Interpretation and review of laboratory results Normal [facility] Patients with high levels of Biotin oral intake (ie >5 mg/day) may have falsely decreased Troponin levels. [facility] Urinalysis complete panel (U )on 01-24-2023 Amorphous Crystals, Urine Few Abnormal Negative /HPF [facility] Bacteria LM.HPF (Urine sed) [#/Area] Few Abnormal Negative /HPF [facility] Bilirubin Ql (U) Negative Negative mg/dL [facility] Clarity (U) Turbid Abnormal Clear [facility] Color (U) Yellow Lt. Yellow [facility] Epithelial cells.squamous LM.HPF (Urine sed) [#/Area] 11-25 Abnormal [facility] Glucose Ql (U) 500 mg/dL Abnormal Normal (<70) [facility] Hemoglobin Ql (U) Negative Negative mg/dL [facility] Interpretation and review of laboratory results Abnormal [facility] Ketones (U) [Mass/Vol] 20 mg/dL Abnormal Negative [facility] Leukocyte esterase Test strip Ql (U) 250 Abnormal Negative [place]/uL [facility] Mucus LM.HPF (Urine sed) [#/Area] Few Negative /LPF [facility] Nitrite Ql (U) Negative Negative [facility] th pH (U) 6.5 [pH] 5.0 - 8.0 pH [facility] Protein (U) [Mass/Vol] 20 mg/dL Abnormal Negative [facility] RBC LM.HPF (Urine sed) [#/Area] 0-2 [facility] Specific gravity (U) [Rel density] 1.016 1.005 - 1.030 [facility] Urobilinogen (U) [Mass/Vol] Normal Normal (0-1) mg/dL [facility] Volume, Urine 12 mL [facility] WBC LM.HPF (Urine sed) [#/Area] 6-10 Abnormal [facility] Vital signson 01-24-2023 Heart rate 69 /min bpm [facility] CBC + DIFFon 01-17-2023 Baso # 0.00 x10EE3/UL Normal 0.00 - 0.10 [facility] Comment on above: Performed By: #### [id number] #### [facility],[address] [place] [address]50 Basophils/100 WBC (Bld) 0.4 % Normal 0.0 - 2.0 [facility] Comment on above: Performed By: #### 2 [id number] #### [facility],[address] [place], [place] [id number] CBC + DIFF Normal [facility] Comment on above: Result Comment: CBC- COMPLETE BLOOD COUNT Performed By: #### [id number] #### [facility],[address] [place] [address]33 EO # 0.00 x10EE3/UL Normal 0.00 - 0.50 [facility] Comment on above: Performed By: #### 2 [id number] #### [facility],[address] [place] [address]805 Eosinophils/100 WBC (Bld) 0.3 % Normal 0.0 - 7.0 [facility] Comment on above: Performed By: #### 2 [id number] #### [facility],[address] [place], [place] [id number] Erythrocyte distribution width (RBC) [Ratio] 15.2 % Normal 12.0 - 15.6 [facility] Comment on above: Performed By: #### 2 [id number] #### [facility],[address] [place], [place] [id number] Hematocrit (Bld) [Volume fraction] 40.9 % Normal 34.0 - 46.0 [facility] Comment on above: Performed By: #### 2 [id number] #### [facility],[address] [place] [address]49 Hemoglobin (Bld) [Mass/Vol] 13.6 g/dL Normal 12.0 - 16.0 [facility] Comment on above: Performed By: #### 2 [id number] #### [facility],[address] [place] [address]005 Lymph # 3.30 x10EE3/UL High 0.80 - 2.80 [facility] Comment on above: Performed By: #### 2 [id number] #### [facility],[address] [place] [address]111 Lymphocytes/100 WBC (Bld) 30.0 % Normal 20.0 - 45.0 [facility] Comment on above: Performed By: #### 2 [id number] #### [facility],[address] [place] [address]38 MANUAL DIFF N/A Normal [facility] Comment on above: Performed By: #### 2 [id number] #### [facility],[address] [place] [address]113 MCH (RBC) [Entitic mass] 27 pg Normal 27 - 33 [facility] Comment on above: Performed By: #### 2 [id number] #### [facility],[address] [place] [address] MCHC 33 X10 3 Normal 32 - 36 [facility] Comment on above: Performed By: #### 2 [id number] #### [facility],[address] [place] [address] MCV (RBC) [Entitic vol] 80 fL Normal 80 - 99 [facility] Comment on above: Performed By: #### 2 [id number] #### [facility],[address] [place] [address] [address] [place] # 0.80 x10EE3/UL Normal 0.20 - 1.00 [facility] Comment on above: Performed By: #### 2 [id number] #### [facility],[address] [place] [address] 16508 MONOS % 7.6 % Normal 0.0 - 10.0 [facility] Comment on above: Performed By: #### 2 [id number] #### [facility],[address] [place] [address] 57279 Morphology Franky (Bld) [Interp] N/A Normal [facility] Comment on above: Performed By: #### 2 75984 #### [facility],[address] [place] [address] 06022 Neut # 6.80 x10EE3/UL Normal 1.50 - 7.10 [facility] Comment on above: Performed By: #### 2 71133 #### [facility],[address] [place] [address] 64958 Neutrophils/100 WBC (Bld) 61.7 % Normal 46.0 - 76.0 [facility] Comment on above: Performed By: #### 2 00290 #### [facility],[address] [place] [address] 64304 PLATELET 504 x10EE3/UL High 150 - 450 [facility] Comment on above: Performed By: #### 2 29024 #### [facility],[address] [place] [address] 00721 Platelet mean volume (Bld) [Entitic vol] 7.2 fL Normal 6.6 - 10.5 [facility] Comment on above: Result Comment: AUTO MATED DIFFERENTIAL Performed By: #### 2 51777 #### [facility],[address] [place] [address] 62674 RBC 5.14 x 10EE6/UL Normal 4.10 - 5.30 [facility] Comment on above: Performed By: #### 2 37449 #### [facility],[address] [place] [address] 26358 WBC 11.1 x 10EE3/UL High 4.5 - 10.8 [facility] Comment on above: Performed By: #### 2 26685 #### [facility],[address] [place] [address] 14041 CMP with eGFRon 01-17-2023 AGE 32 years Normal [facility] Comment on above: Performed By: #### 2 22979 #### [facility],[address] [place] [address] 02877 Albumin [Mass/Vol] 3.6 g/dL Normal 3.4 - 5.0 [facility] Comment on above: Performed By: #### 2 21181 #### [facility],[address] [place] [address] 96468 Albumin/Globulin [Mass ratio] 0.7 {ratio} Low 0.9 - 1.6 [facility] Comment on above: Performed By: #### 2 41512 #### [facility],[address] [place] [address] 31783 ALK PHOS 73 U/L Normal 46 - 116 [facility] Comment on above: Performed By: #### 2 87053 #### [facility],[address] [place] [address] 06128 ALT [Catalytic activity/Vol] 21 U/L Normal 14 - 59 [facility] Comment on above: Performed By: #### 2 70736 #### [facility],[address] [place] [address] 70211 Anion gap [Moles/Vol] 17 mmol/L Normal 10 - 20 [facility] Comment on above: Performed By: #### 2 46518 #### [facility],[address] [place] [address] 63138 AST [Catalytic activity/Vol] 12 U/L Low 13 - 39 [facility] Comment on above: Performed By: #### 2 09943 #### [facility],[address] [place] [address] 80339 B/C RATIO 9 ratio Normal 0 - 30 [facility] Comment on above: Performed By: #### 2 15838 #### [facility],[address] [place] [address] 45710 Bilirubin [Mass/Vol] 0.7 mg/dL Normal 0.2 - 1.0 [facility] Comment on above: Performed By: #### 2 64329 #### [facility],[address] [place] [address] 88060 Calcium [Mass/Vol] 9.1 mg/dL Normal 8.5 - 10.1 [facility] Comment on above: Performed By: #### 2 25627 #### [facility],[address] [place] [address] 99683 Chloride [Moles/Vol] 98 mmol/L Normal 98 - 107 [facility] Comment on above: Performed By: #### 2 74653 #### [facility],[address] [place] [address] CMP with eGFR Normal [facility] Comment on above: Result Comment: COMP REHENSIVE METABOLIC PANEL Performed By: #### 2 55853 #### [place] [address] CO2 [Moles/Vol] 23.6 mmol/L Normal 21.0 - 32.0 [facility] Comment on above: Performed By: #### 2 17157 #### [facility],[address] [place], [place] [id number] Creatinine [Mass/Vol] 1.10 mg/dL High 0.55 - 1.02 [facility] Comment on above: Performed By: #### 2 08058 #### [facility],[address] [place], [place] [id number] eGFR 58 ML/MINUTE Low 60 - 999 [facility] Comment on above: Performed By: #### 2 39617 #### [address] [address] GFR/1.73 sq M.predicted among non-blacks MDRD (S/P/Bld) [Vol rate/Area] mL/min/{1.73_m2} Normal 60 - 999 [facility] Comment on above: Result Comment: ACCO RDING TO THE NATIONAL KIDNEY DISEASE EDUCATION PROGRAM(NKDE), A NORMAL eGFR IS A VALUE GREATER THAN OR EQUAL TO 60 ML/MIN/1.73 SQ METERS. CHRONIC KIDNEY DISEASE: <60mL/MIN/1.73 SQ METERS KIDNEY FAILURE: <15mL/MIN/1.73 SQ METERS THIS TEST SHOULD ONLY BE USED FOR PATIENTS 18 YEARS OF AGE AND OLDER. Performed By: #### 2 04635 #### [address] [address] Globulin (S) [Mass/Vol] 5.1 g/dL High 1.5 - 3.8 [facility] Comment on above: Performed By: #### 2 57884 #### [address] [address] Glucose [Mass/Vol] 191 mg/dL High 74 - 106 [facility] Comment on above: Performed By: #### 2 91350 #### [address] [address] Potassium [Moles/Vol] 3.7 mmol/L Normal 3.5 - 5.1 [facility] Comment on above: Performed By: #### 2 87382 #### [address] [address] Protein [Mass/Vol] 8.7 g/dL High 6.4 - 8.2 [facility] Comment on above: Performed By: #### 2 82937 #### [address] [address] Sodium [Moles/Vol] 135 mmol/L Low 136 - 145 [facility] Comment on above: Performed By: #### 2 61239 #### [address] [address] Urea nitrogen [Mass/Vol] 10 mg/dL Normal 7 - 18 [facility] Comment on above: Performed By: #### 2 30481 #### [address] [address] [address] ABDOMEN/PELVIS [facility] 2022 CT ABDOMEN/PELVIS [place] [address] Patient: GHISLAINE GIVENS Phone#: : 1990 Age: 32 Gender: F Pt. Type: ER Account: [id number] Location: 052 Ordering: GERALDINE [facility]EROMEISINGER Exam Date: 01/17/2023/8:31 Family Phys: Charge Code: [id number] Physician: Pitkin Order #: [id number] Dose#: PROCEDURE: CT ABDOMEN/PELVIS WITH CONTRAST COMPARISON: [facility], CT, ABDOMEN/PELVIS W CON, 01/24/2022, 18:58. [...] 32 Gender: F Pt. Type: ER Account: [id number] Location: 052 Ordering: GERALDINE [facility] Exam Date: 01/17/2023/8:31 Family Phys: Charge Code: [id number] Physician: Pitkin Order #: [id number] Dose#: OTHER: Negative. CONCLUSION: 1. UNDER FILLING VERSUS MUCOSAL THICKENING AT THE RECTOSIGMOID COLON. Dictated by: Cristy Penaloza MD on 01/17/2023 at 9:14 Approved by: Cristy Penaloza MD on 01/17/2023 at 9:19 Normal [facility] DRUG SCREEN URINE MEDICon AMPHETAMINES Negative [facility] Comment on above: Performed By: #### 2 34542 #### [facility],[address] [place] [address] 66834 B-DIAZEPINES Negative [facility] Comment on above: Performed By: #### 2 46773 #### [facility],[address] [place] [address] BARBITURATES Negative [facility] Comment on above: Performed By: #### 2 02252 #### [facility],[address] [place] [address] 68601 COCAINE Negative [facility] Comment on above: Performed By: #### 2 85374 #### [facility],[address] [place] [address] 83038 DRUG SCREEN URINE MEDIC Normal [facility] Comment on above: Result Comment: DRUG SCREEN - URINE Performed By: #### 2 37217 #### [facility],[address] [place] [address] 94232 METHADONE Negative [facility] Comment on above: Performed By: #### 2 66472 #### [facility],[address] [place] [address] 28957 OPIATES Negative [facility] Comment on above: Performed By: #### 2 62132 #### [facility],[address] [place] [address] 68459 PCP Negative [facility] Comment on above: Performed By: #### 2 80341 #### [facility],[address] [place] [address] 21653 THC Positive Normal [facility] Comment on above: Result Comment: ERASTO ENTS RECEIVING PROTON PUMP INHIBITORS MAY DEMONSTRATE FALSE POSITIVE THC/CANNABINOID RESULTS. AN ALTERNATIVE CONFIRMATORY METHOD SHOULD BE CONSIDERED TO VERIFY POSITIVE RESULTS. Performed By: #### 2 11079 #### [facility],[address] [place] [address] 40958 LIPASEon 01-17-2023 Lipase [Catalytic activity/Vol] 143.0 U/L Normal 73.0 - 393 [facility] Comment on above: Performed By: #### 2 33128 #### [facility],[address] [place] [address] 29729 SERUM QUALon 01-17 EXTERNAL QC DONE? YES Normal [facility] Comment on above: Performed By: #### 2 55522 #### [facility],[address] [place] [address] INTERNAL QC PASS Normal [facility] Comment on above: Performed By: #### 2 03284 #### [facility],[address] [place], [place] [id number] SER Negative Normal NEGATIVE [facility] Comment on above: Performed By: #### 2 98544 #### [facility],[address] [place] [address] 51771 URINALYSISon 01-17-2023 Amorphous NONE Normal [facility] Comment on above: Performed By: #### 2 19941 #### [facility],[address] [place] [address] 29219 Bacteria 1+ Normal [facility] Comment on above: Performed By: #### 2 05088 #### [facility],[address] [place] [address] 60310 Bilirubin Ql (U) Negative Normal NORMAL: NEGATIVE [facility] Comment on above: Performed By: #### 2 56834 #### [facility],[address] [place] [address] 53983 Casts NONE Normal [facility] Comment on above: Performed By: #### 2 30929 #### [facility],[address] [place] [address] Clarity (U) clear Normal NORMAL: CLEAR [facility] Comment on above: Performed By: #### 2 25003 #### [facility],[address] [place], [place] [id number] Color (U) p.yel Normal NORMAL: YELLOW [facility] Comment on above: Performed By: #### 2 85866 #### [facility],[address] [place], [place] [id number] Crystals LM Nom (Urine sed) NONE Normal [facility] Comment on above: Performed By: #### 2 98867 #### [facility],[address] [place], [place] [id number] Epi Cells MODERATE Normal [facility] Comment on above: Performed By: #### 2 23307 #### [facility],[address] [place], [place] [id number] Glucose Ql (U) 50 Abnormal NORMAL: NORMAL [facility] Comment on above: Performed By: #### 2 82524 #### [facility],[address] [place] [address] 82049 Hemoglobin Ql (U) Negative Normal NORMAL: NEGATIVE [facility] Comment on above: Performed By: #### 2 95946 #### [facility],[address] [place] [address] 84014 Ketone 15 Abnormal NORMAL: NEGATIVE [facility] Comment on above: Performed By: #### 2 87620 #### [facility],[address] [place] [address] 51113 Leukocytes 100 Abnormal NORMAL: NEGATIVE [facility] Comment on above: Performed By: #### 2 27793 #### [facility],[address] [place] [address] 31079 Mucous NONE Normal [facility] Comment on above: Performed By: #### 2 25699 #### [facility],[address] [place] [address] Nitrite Ql (U) Negative Normal NORMAL: NEGATIVE [facility] Comment on above: Performed By: #### 2 26184 #### [facility],[address] [place] [address] pH (U) 7 [pH] Normal NORMAL: 5.0-8.0 [facility] Comment on above: Performed By: #### 2 40347 #### [facility],[address] [place] [address] Protein Ql (U) Negative Normal NORMAL: NEGATIVE [facility] Comment on above: Performed By: #### 2 62361 #### [facility],[address] [place] [address] Rbc NONE Normal 0-3/hpf [facility] Comment on above: Performed By: #### 2 93722 #### [facility],[address] [place] [address] Sp [place] 1.005 Low NORMAL: 1.010-1.030 [facility] Comment on above: Performed By: #### 2 47923 #### [facility],[address] [place] [address] Specimen Type UNSPECIFIED Normal [facility] Comment on above: Performed By: #### 2 37440 #### [facility],[address] [place] [address] Urinalysis dipstick W Reflex Microscopic panel (U) SEE BELOW Normal [facility] Comment on above: Result Comment: MICR OSCOPIC Performed By: #### 2 70353 #### [facility],[address] [place] [address] Urobilinog NORM Normal NORMAL: NORMAL [facility] Comment on above: Performed By: #### 2 13691 #### [facility],[address] [place] [address] Wbc 1-5 Normal 0-5/hpf [facility] Comment on above: Performed By: #### 2 24803 #### [facility],[address] [place] [address] 78272 Yeast NONE Normal [facility] Comment on above: Performed By: #### 2 54592 #### [facility],[address] [place] [address] Absolute lymphocyte countOrd ered By: Lexus Villatoro on 01-15-2023 Lymphocytes Auto (Unsp spec) [#/Vol] 3.20 10*3/uL 0.83-4.51 [facility] Basophil percentageOrdered B y: Lexus Villatoro on 01-15-2023 Basophil percentage 154 mg/dL 74-106 [facility] Basophil percentage 7.1 g/dL 6.4-8.2 [facility] Basophil percentage 0.60 mg/dL 0.20-1.00 [facility] Basophil percentage 136 mmol/L 136-145 [facility] Basophil percentage 3.1 mmol/L 3.5-5.1 [facility] Basophil percentage 105 mmol/L 98-107 [facility] Basophils (Bld) [#/Vol] 9.4 10*3/uL 4.4-11.0 [facility] Basophils (Bld) [#/Vol] 5.3 10*3/uL 2.0-7.7 [facility] Basophils/100 WBC (Bld) 0.3 % 0-1 [facility] Basophils/100 WBC (Bld) 56.4 % 47-70 [facility] Bilirubin [Mass/Vol] 0.60 mg/dL 0.20-1.00 [facility] Comment on above: For patients on eltr ombopag therapy, use of Dimension [place] TBIL is not recommended. Chloride [Moles/Vol] 105 mmol/L 98-107 [facility] Eosinophils/100 WBC (Bld) 0.3 % 0-5 [facility] Glucose [Mass/Vol] 154 mg/dL 74-106 [facility] Comment on above: Fasting Glucose resu lt greater than or equal to 126 mg/dL suggests DIABETES MELLITUS per A.D.A. criteria. Neutrophils (Bld) [#/Vol] 5.3 10*3/uL 2.0-7.7 [facility] Neutrophils/100 WBC (Bld) 56.4 % 47-70 [facility] Potassium [Moles/Vol] 3.1 mmol/L 3.5-5.1 [facility] Protein [Mass/Vol] 7.1 g/dL 6.4-8.2 [facility] Sodium [Moles/Vol] 136 mmol/L 136-145 [facility] WBC (Bld) [#/Vol] 9.4 10*3/uL 4.4-11.0 [facility] Blood erythrocytes count (nu mber/volume)Ordered By: Lexus Villatoro on 01-15-2023 RBC (Bld) [#/Vol] 4.43 10*6/uL 4.2-5.4 [facility] Blood hemoglobin measurement (mass/volume)Ordered By: Lexus Villatoro on 01-15-2023 Hemoglobin (Bld) [Mass/Vol] 11.7 g/dL 12.0-15.0 [facility] Blood lymphocytes/100 leukoc ytesOrdered By: Lexus Villatoro on 01-15-2023 Lymphocytes/100 WBC (Bld) 34.2 % 19-41 [facility] Blood monocytes/100 leukocyt esOrdered By: Lexus Villatoro on 01-15-2023 Monocytes/100 WBC (Bld) 8.2 % 0-10 [facility] Blood platelet mean volumeOr dered By: Lexus Villatoro on 01-15-2023 Platelet mean volume (Bld) [Entitic vol] 9.3 fL 6.2-12.0 [facility] Determination of erythrocyte mean corpuscular volume (MCV)Ordered By: Lexus Villatoro on 01-15-2023 MCV (RBC) [Entitic vol] 80.4 fL 81-99 [facility] Glucose Glucometer (dC) [M ass/Vol]Ordered By: Lexus Villatoro on 01-15-2023 Glucose [Mass/Vol] 247 mg/dL 74-106 [facility] Comment on above: MANAGEMENT OF PATIEN T CARE PER NURSING PROTOCOL Hematocrit Auto (Bld) [Volum e fraction]Ordered By: Lexus Villatoro on 01-15-2023 Hematocrit (Bld) [Volume fraction] 35.6 % 37-47 [facility] - Chemistry and C hemistry - challengeOrdered By: Lexus Villatoro on 01-15-2023 ALP [Catalytic activity/Vol] 54 U/L 45-117 [facility] ALT [Catalytic activity/Vol] 14 U/L 13-56 [facility] CO2 [Moles/Vol] 26.0 mmol/L 21.0-32.0 [facility] Globulin (S) [Mass/Vol] 4.1 g/dL 2.2-4.2 [facility] Magnesium [Mass/Vol] 2.0 mg/dL 1.6-2.6 [facility] Urea nitrogen/Creatinine [Mass ratio] 6.6 mg/mg 10-20 [facility] - Hematology and Cell countsOrdered By: Lexus Villatoro on 01-15-2023 Erythrocyte distribution width (RBC) [Entitic vol] 40.1 fL 35.1-43.9 [facility] Erythrocyte distribution width (RBC) [Ratio] 13.8 % 11.6-14.6 [facility] Immature granulocytes/100 WBC (Bld) 0.600 % 0.0-0.9 [facility] Comment on above: IG% - Immature Granu locytes (promyelocytes, myelocytes and metamyelocytes) > 1% indicates that a LEFT SHIFT is Present. MCH (RBC) [Entitic mass] 26.4 pg 27.0-32.0 [facility] Nucleated RBC/100 WBC (Bld) [Ratio] 0 % 0-5 [facility] MCHC Auto (RBC) [Mass/Vol]Or dered By: Lexus Villatoro on 01-15-2023 MCHC (RBC) [Mass/Vol] 32.9 g/dL 32-36 [facility] No Panel InformationOrdered By: Lexus Villatoro on 01-15-2023 Estimated Creatinine Clearance Calc 84.62 ml/min [facility] Estimated GFR (MDRD) Amer 93 mL/min >60 [facility] Comment on above: GFR Calc Estimated GFR (MDRD) Non-Af Amer 77 mL/min >60 [facility] Comment on above: Non- GFR Calc Thyroid Stimulating Hormone (TSH) 2.30 uIU/mL 0.358-3.74 [facility] 26.4 pg 27.0-32.0 [facility] 13.8 % 11.6-14.6 [facility] 40.1 fl 35.1-43.9 [facility] 0.600 % 0.0-0.9 [facility] 0 % 0-5 [facility] 77 mL/min >60 [facility] 93 mL/min >60 [facility] 84.62 ml/min [facility] 6.6 RATIO 10-20 [facility] 4.1 g/dL 2.2-4.2 [facility] 54 U/L 45-117 [facility] 14 U/L 13-56 [facility] 2.0 mg/dL 1.6-2.6 [facility] 26.0 mmol/L 21.0-32.0 [facility] 2.30 uIU/mL 0.358-3.74 [facility] Platelets bldOrdered By: Porsche Villatoro on 01-15-2023 Platelets (Bld) [#/Vol] 361 10*3/uL 150-450 [facility] Serum or plasma albumin hussein urement (mass/volume)Ordered By: Lexus Villatoro on 01-15-2023 Albumin [Mass/Vol] 3.0 g/dL 3.2-5.0 [facility] Serum or plasma albumin/glob ulin mass ratioOrdered By: Lexus Villatoro on 01-15-2023 Albumin/Globulin [Mass ratio] 0.7 {ratio} 0.9-2.4 [facility] Serum or plasma calcium hussein urement (mass/volume)Ordered By: Lexus Villatoro on 01-15-2023 Calcium [Mass/Vol] 8.2 mg/dL 8.5-10.1 [facility] Serum or plasma creatinine m easurement (mass/volume)Ordered By: Lexus Villatoro on 01-15-2023 Creatinine [Mass/Vol] 0.91 mg/dL 0.55-1.02 [facility] Comment on above: The validity of the calculated GFR & GFRAA in patients over 70 years has not been determined. Clinical correlation is essential. Serum or plasma urea nitroge n measurement (mass/volume)Ordered By: Lexus Villatoro on 01-15-2023 Urea nitrogen [Mass/Vol] 6 mg/dL 7-18 [facility] Thin prep Papanicolaou smear with manual screeningOrdered By: Lexus Villatoro on 01-15-2023 Thin prep Papanicolaou smear with manual screening 13 U/L 15-37 [facility] Thin prep Papanicolaou smear with manual screening 5 5-15 [facility] Bacteria identified Cx Nom ( U)Ordered By: Willie Dhillon on 01-14-2023 Culture, urine Positive [facility] Basophil percentageOrdered B y: Willie Dhillon on 01-14-2023 Basophil percentage 1.3 mmol/L 0.4-2.0 [facility] Lactate [Moles/Vol] 1.3 mmol/L 0.4-2.0 [facility] Basophil percentage 0-5 SEEN /hpf 0-5 [facility] Beta hCG serum qualOrdered B y: Willie Dhillon on 01-14-2023 Beta HCG ( test) Ql Negative [facility] Bilirubin Test strip Ql (U)O rdered By: Willie Dhillon on 01-14-2023 Bilirubin Ql (U) Negative Negative [facility] Culture, urineOrdered By: Reji March on 01-14-2023 Bacteria identified Cx Nom (U) Positive [facility] Ketones Test strip Ql (U)Ord ered By: Willie Dhillon on 01-14-2023 Ketones Ql (U) 5 mg/dl Negative [facility] Laboratory - Drug toxicology Ordered By: Lexus Villatoro on 01-14-2023 Amphetamines Ql (U) Negative <1000 ng/mL [facility] Benzodiazepines Ql (U) Negative < 200 ng/mL [facility] Cannabinoids Screen Ql (U) Positive < 50 ng/mL [facility] Cocaine Ql (U) Negative < 300 ng/mL [facility] Opiates Ql (U) Negative < 300 ng/mL [facility] Mucus LM Ql (Urine sed)Order ed By: Willie Dhillon on 01-14-2023 Mucus Ql (Urine sed) 0 SEEN /hpf [facility] Nitrite Test strip Ql (U)Ord ered By: Willie Dhillon on 01-14-2023 Nitrite Ql (U) Negative Negative [facility] No Panel InformationOrdered By: Lexus Villatoro on 01-14-2023 MDMA (Ecstasy) Screen Negative < 500 ng/mL [facility] Urine Barbiturates Screen Negative < 200 ng/mL [facility] Urine Drug Screen Comment [facility] Comment on above: CONFIRMATORY TESTING FOR [...] Methadone Screen Negative < 300 ng/mL [facility] Negative < 300 ng/mL [facility] Positive < 50 ng/mL [facility] Protein Test strip Ql (U)Ord ered By: Willie Dhillon on 01-14-2023 Protein Ql (U) 15 mg/dl Negative [facility] Squamous epithelial cells de tection in urine sediment by light microscopyOrdered By: Willie Dhillon on 01-14-2023 Epithelial cells.squamous LM Ql (Urine sed) 0-5 SEEN /hpf 5-10 [facility] Urine blood detectionOrdered By: Willie Dhillon on 01-14-2023 RBC Ql (U) 10 /ul Negative [facility] RBC Ql (U) 0-5 SEEN /hpf 0-5 [facility] Urine clarityOrdered By: Heath Dhillon on 01-14-2023 Clarity (U) Clear Clear [facility] Urine color determinationOrd ered By: Willie Dhillon on 01-14-2023 Color (U) Yellow Yellow [facility] Urine glucose detectionOrder ed By: Willie Dhillon on 01-14-2023 Glucose Ql (U) 250 mg/dl Normal [facility] Urine leukocyte esterase det ection by dipstickOrdered By: Willie Dhillon on 01-14-2023 Leukocyte esterase Test strip Ql (U) 25 /ul Negative [facility] Urine pHOrdered By: Willie mo on 01-14-2023 pH (U) 8.0 [pH] 5.0 - 8.0 [facility] [facility] phencyclidine (PCP) de tectionOrdered By: Lexus Villatoro on 01-14-2023 Phencyclidine Ql (U) Negative < 25 ng/mL [facility] Urine sediment bacteria coun t by microscopy (number/high power field)Ordered By: Willie Dhillon on 01-14-2023 Bacteria LM.HPF (Urine sed) [#/Area] RARE /hpf None Seen [facility] Urine specific gravity measu rementOrdered By: Willie Dhillon on 01-14-2023 Specific gravity (U) [Rel density] 1.015 1.002-1.030 [facility] Urobilinogen Auto test strip Ql (U)Ordered By: Willie Dhillon on 01-14-2023 Urobilinogen Ql (U) Normal mg/dl Normal [facility] Basophil percentageOrdered B y: Deann Guerrero on 01-13-2023 Basophil percentage 25-50 SEEN /hpf 0-5 [facility] Basophil percentage 235 mg/dL 74-106 [facility] Basophil percentage 137 mmol/L 136-145 [facility] Basophil percentage 3.2 mmol/L 3.5-5.1 [facility] Basophil percentage 107 mmol/L 98-107 [facility] Chloride [Moles/Vol] 107 mmol/L 98-107 [facility] Glucose [Mass/Vol] 235 mg/dL 74-106 [facility] Comment on above: Glucose result great er than or equal to 200 mg/dLsuggests DIABETES MELLITUS per A.D.A. criteria. Potassium [Moles/Vol] 3.2 mmol/L 3.5-5.1 [facility] Sodium [Moles/Vol] 137 mmol/L 136-145 [facility] Beta hCG serum qualOrdered B y: Deann Guerrero on 01-13-2023 Beta HCG ( test) Ql Negative [facility] Bilirubin Test strip Ql (U)O rdered By: Deann Guerrero on 01-13-2023 Bilirubin Ql (U) Negative Negative [facility] Ketones Test strip Ql (U)Ord ered By: Deann Guerrero on 01-13-2023 Ketones Ql (U) 15 mg/dl Negative [facility] Laboratory - Chemistry and C hemistry - challengeOrdered By: Deann Guerrero on 01-13-2023 CO2 [Moles/Vol] 23.0 mmol/L 21.0-32.0 [facility] Urea nitrogen/Creatinine [Mass ratio] 7.6 mg/mg 10- [facility] Mucus LM Ql (Urine sed)Order ed By: Deann Guerrero on 01-13-2023 Mucus Ql (Urine sed) 1+ /hpf [facility] Nitrite Test strip Ql (U)Ord ered By: Deann Guerrero on 01-13-2023 Nitrite Ql (U) Negative Negative [facility] No Panel InformationOrdered By: Deann Guerrero on 01-13-2023 Estimated Creatinine Clearance Calc 73.34 ml/min [facility] Estimated GFR (MDRD) Amer 79 mL/min >60 [facility] Comment on above: GFR Calc Estimated GFR (MDRD) Non-Af Amer 65 mL/min >60 [facility] Comment on above: Non- GFR Calc 65 mL/min >60 [facility] 79 mL/min >60 [facility] 73.34 ml/min [facility] 7.6 RATIO 04-30 [facility] 23.0 mmol/L 21.0-32.0 [facility] Protein Test strip Ql (U)Ord ered By: Deann Guerrero on 01-13-2023 Protein Ql (U) 30 mg/dl Negative [facility] Serum or plasma calcium hussein urement (mass/volume)Ordered By: Deann Guerrero on 01-13-2023 Calcium [Mass/Vol] 8.5 mg/dL 8.5-10.1 [facility] Serum or plasma creatinine m easurement (mass/volume)Ordered By: Deann Guerrero on 01-13-2023 Creatinine [Mass/Vol] 1.05 mg/dL 0.55-1.02 [facility] Comment on above: The validity of the calculated GFR & GFRAA in patients over 70 years has not been determined. Clinical correlation is essential. Serum or plasma urea nitroge n measurement (mass/volume)Ordered By: Deann Guerrero on 01-13-2023 Urea nitrogen [Mass/Vol] 8 mg/dL 01-26 [facility] Squamous epithelial cells de tection in urine sediment by light microscopyOrdered By: Deann Guerrero on 01-13-2023 Epithelial cells.squamous LM Ql (Urine sed) 5-10 SEEN /hpf 5-10 [facility] Thin prep Papanicolaou smear with manual screeningOrdered By: Deann Guerrero on 01-13-2023 Thin prep Papanicolaou smear with manual screening 7 5-15 [facility] Urine blood detectionOrdered By: Deann Guerrero on 01-13-2023 RBC Ql (U) 10 /ul Negative [facility] RBC Ql (U) 0-5 SEEN /hpf 0-5 [facility] Urine clarityOrdered By: Sulema Guerrero on 01-13-2023 Clarity (U) Sl. Cloudy Clear [facility] Urine color determinationOrd ered By: Deann Guerrero on 01-13-2023 Color (U) Yellow Yellow [facility] Urine glucose detectionOrder ed By: Deann Guerrero on 01-13-2023 Glucose Ql (U) 250 mg/dl Normal [facility] Urine leukocyte esterase det ection by dipstickOrdered By: Deann Guerrero on 01-13-2023 Leukocyte esterase Test strip Ql (U) 500 /ul Negative [facility] Urine pHOrdered By: Deann Guerrero on 01-13-2023 pH (U) 6.0 [pH] 5.0 - 8.0 [facility] Urine sediment bacteria coun t by microscopy (number/high power field)Ordered By: Deann Guerrero on 01-13-2023 Bacteria LM.HPF (Urine sed) [#/Area] 1 /[HPF] None Seen [facility] Urine specific gravity measu rementOrdered By: Deann Guerrero on 01-13-2023 Specific gravity (U) [Rel density] 1.020 1.002-1.030 [facility] Urobilinogen Auto test strip Ql (U)Ordered By: Deann Guerrero on 01-13-2023 Urobilinogen Ql (U) 1 mg/dl Normal [facility] Absolute lymphocyte countOrd ered By: Perico Norman on 01-12-2023 Lymphocytes Auto (Unsp spec) [#/Vol] 1.80 10*3/uL 0.83-4.51 [facility] Basophil percentageOrdered B y: Fabricio Guevara on 01-12-2023 Basophil percentage 208 mg/dL 74-106 [facility] Basophil percentage 137 mmol/L 136-145 [facility] Basophil percentage 3.0 mmol/L 3.5-5.1 [facility] Basophil percentage 105 mmol/L 98-107 [facility] Chloride [Moles/Vol] 105 mmol/L 98-107 [facility] Glucose [Mass/Vol] 208 mg/dL 74-106 [facility] Comment on above: Glucose result great er than or equal to 200 mg/dLsuggests DIABETES MELLITUS per A.D.A. criteria. Potassium [Moles/Vol] 3.0 mmol/L 3.5-5.1 [facility] Sodium [Moles/Vol] 137 mmol/L 136-145 [facility] Basophil percentageOrdered B y: Perico Norman on 01-12-2023 Basophil percentage 267 mg/dL 74-106 [facility] Basophil percentage 7.8 g/dL 6.4-8.2 [facility] Basophil percentage 0.40 mg/dL 0.20-1.00 [facility] Basophil percentage 134 mmol/L 136-145 [facility] Basophil percentage 3.4 mmol/L 3.5-5.1 [facility] Basophil percentage 101 mmol/L 98-107 [facility] Basophils (Bld) [#/Vol] 12.4 10*3/uL 4.4-11.0 [facility] Basophils (Bld) [#/Vol] 9.9 10*3/uL 2.0-7.7 [facility] Basophils/100 WBC (Bld) 0.3 % 0-1 [facility] Basophils/100 WBC (Bld) 79.6 % 47-70 [facility] Basophils/100 WBC (Bld) 0.0 % 0-5 [facility] Bilirubin [Mass/Vol] 0.40 mg/dL 0.20-1.00 [facility] Comment on above: For patients on eltr ombopag therapy, use of Dimension [place] TBIL is not recommended. Chloride [Moles/Vol] 101 mmol/L 98-107 [facility] Eosinophils/100 WBC (Bld) 0.0 % 0-5 [facility] Glucose [Mass/Vol] 267 mg/dL 74-106 [facility] Comment on above: Glucose result great er than or equal to 200 mg/dLsuggests DIABETES MELLITUS per A.D.A. criteria. Neutrophils (Bld) [#/Vol] 9.9 10*3/uL 2.0-7.7 [facility] Neutrophils/100 WBC (Bld) 79.6 % 47-70 [facility] Potassium [Moles/Vol] 3.4 mmol/L 3.5-5.1 [facility] Protein [Mass/Vol] 7.8 g/dL 6.4-8.2 [facility] Sodium [Moles/Vol] 134 mmol/L 136-145 [facility] WBC (Bld) [#/Vol] 12.4 10*3/uL 4.4-11.0 [facility] Blood erythrocytes count (nu mber/volume)Ordered By: Perico Norman on 01-12-2023 RBC (Bld) [#/Vol] 4.62 10*6/uL 4.2-5.4 [facility] Blood hemoglobin measurement (mass/volume)Ordered By: Perico Norman on 01-12-2023 Hemoglobin (Bld) [Mass/Vol] 12.1 g/dL 12.0-15.0 [facility] Blood lymphocytes/100 leukoc ytesOrdered By: Perico Norman on 01-12-2023 Lymphocytes/100 WBC (Bld) 14.5 % 19-41 [facility] Blood monocytes/100 leukocyt esOrdered By: Perico Norman on 01-12-2023 Monocytes/100 WBC (Bld) 5.0 % 0-10 [facility] Blood platelet mean volumeOr dered By: Perico Norman on 01-12-2023 Platelet mean volume (Bld) [Entitic vol] 9.0 fL 6.2-12.0 [facility] Determination of erythrocyte mean corpuscular volume (MCV)Ordered By: Perico Normna on 01-12-2023 MCV (RBC) [Entitic vol] 81.0 fL 81-99 [facility] Direct bilirubinOrdered By: Perico Norman on 01-12-2023 Bilirubin.direct [Mass/Vol] 0.14 mg/dL 0.00-0.30 [facility] Hematocrit Auto (Bld) [Volum e fraction]Ordered By: Perico Norman on 01-12-2023 Hematocrit (Bld) [Volume fraction] 37.4 % 37-47 [facility] Laboratory - Chemistry and C hemistry - challengeOrdered By: Fabricio Guevara on 01-12-2023 CO2 [Moles/Vol] 26.0 mmol/L 21.0-32.0 [facility] Urea nitrogen/Creatinine [Mass ratio] 7.0 mg/mg 10 [facility] Laboratory - Chemistry and C hemistry - challengeOrdered By: Perico Norman on 01-12-2023 ALP [Catalytic activity/Vol] 68 U/L 45-117 [facility] ALT [Catalytic activity/Vol] 14 U/L 13-56 [facility] CO2 [Moles/Vol] 24.0 mmol/L 21.0-32.0 [facility] Globulin (S) [Mass/Vol] 4.5 g/dL 2.2-4.2 [facility] Lipase [Catalytic activity/Vol] 37 U/L 13-75 [facility] Comment on above: Please note:LIPASE r evised reference range effective 22. New Lipase methodology. Expected to produce lower values than the previous assay method. NEW Reference Range: 13 - 75 U/L Urea nitrogen/Creatinine [Mass ratio] 9.7 mg/mg 04-30 [facility] Laboratory - Hematology and Cell countsOrdered By: Perico Norman on 01-12-2023 Erythrocyte distribution width (RBC) [Entitic vol] 38.9 fL 35.1-43.9 [facility] Erythrocyte distribution width (RBC) [Ratio] 13.7 % 11.6-14.6 [facility] Immature granulocytes/100 WBC (Bld) 0.600 % 0.0-0.9 [facility] Comment on above: IG% - Immature Granu locytes (promyelocytes, myelocytes and metamyelocytes) > 1% indicates that a LEFT SHIFT is Present. MCH (RBC) [Entitic mass] 26.2 pg 27.0-32.0 [facility] Nucleated RBC/100 WBC (Bld) [Ratio] 0 % 0-5 [facility] MCHC Auto (RBC) [Mass/Vol]Or dered By: Perico Norman on 01-12-2023 MCHC (RBC) [Mass/Vol] 32.4 g/dL 32-36 [facility] No Panel InformationOrdered By: Fabricio Guevara on 01-12-2023 Estimated Creatinine Clearance Calc 77.01 ml/min [facility] Estimated GFR (MDRD) Amer 84 mL/min >60 [facility] Comment on above: GFR Calc Estimated GFR (MDRD) Non-Af Amer 69 mL/min >60 [facility] Comment on above: Non- GFR Calc 69 mL/min >60 [facility] 84 mL/min >60 [facility] 77.01 ml/min [facility] 7.0 RATIO 10-20 [facility] 26.0 mmol/L 21.0-32.0 [facility] No Panel InformationOrdered By: Perico Norman on 01-12-2023 Estimated Creatinine Clearance Calc 68.15 ml/min [facility] Estimated GFR (MDRD) Amer 72 mL/min >60 [facility] Comment on above: GFR Calc Estimated GFR (MDRD) Non-Af Amer 60 mL/min >60 [facility] Comment on above: Non- GFR Calc 26.2 pg 27.0-32.0 [facility] 13.7 % 11.6-14.6 [facility] 38.9 fl 35.1-43.9 [facility] 0.600 % 0.0-0.9 [facility] 0 % 0-5 [facility] 60 mL/min >60 [facility] 72 mL/min >60 [facility] 68.15 ml/min [facility] 9.7 RATIO 10-20 [facility] 4.5 g/dL 2.2-4.2 [facility] 37 U/L 13-75 [facility] 68 U/L 45-117 [facility] 14 U/L 13-56 [facility] 24.0 mmol/L 21.0-32.0 [facility] Platelets bldOrdered By: Bakari Norman on 01-12-2023 Platelets (Bld) [#/Vol] 352 10*3/uL 150-450 [facility] Serum or plasma albumin hussein urement (mass/volume)Ordered By: Perico Norman on 01-12-2023 Albumin [Mass/Vol] 3.3 g/dL 3.2-5.0 [facility] Serum or plasma calcium hussein urement (mass/volume)Ordered By: Fabricio Guevara on 01-12-2023 Calcium [Mass/Vol] 8.7 mg/dL 8.5-10.1 [facility] Serum or plasma calcium hussein urement (mass/volume)Ordered By: Perico Norman on 01-12-2023 Calcium [Mass/Vol] 9.0 mg/dL 8.5-10.1 [facility] Serum or plasma creatinine m easurement (mass/volume)Ordered By: Fabricio Guevara on 01-12-2023 Creatinine [Mass/Vol] 1.00 mg/dL 0.55-1.02 [facility] Comment on above: The validity of the calculated GFR & GFRAA in patients over 70 years has not been determined. Clinical correlation is essential. Serum or plasma creatinine m easurement (mass/volume)Ordered By: Perico Norman on 01-12-2023 Creatinine [Mass/Vol] 1.13 mg/dL 0.55-1.02 [facility] Comment on above: The validity of the calculated GFR & GFRAA in patients over 70 years has not been determined. Clinical correlation is essential. Serum or plasma urea nitroge n measurement (mass/volume)Ordered By: Fabricio Guevara on 01-12-2023 Urea nitrogen [Mass/Vol] 7 mg/dL - [facility] Serum or plasma urea nitroge n measurement (mass/volume)Ordered By: Perico Norman on 01-12-2023 Urea nitrogen [Mass/Vol] 11 mg/dL -18 [facility] Thin prep Papanicolaou smear with manual screeningOrdered By: Fabricio Guevara on 01-12-2023 Thin prep Papanicolaou smear with manual screening 6 5-15 [facility] Thin prep Papanicolaou smear with manual screeningOrdered By: Perico Norman on 01-12-2023 Thin prep Papanicolaou smear with manual screening 12 U/L 15-37 [facility] Thin prep Papanicolaou smear with manual screening 9 5-15 [facility] .Auto Diffon 01-10-2023 Basophil, Absolute 0.0 10 3/mcL Normal 0.0-0.2 [facility] ([place]) Comment on above: Performed By: #### A DIFF, GFR, MDW, CMP, ANEU, CBC, LIP #### [address] [address] Basophils/100 WBC (Bld) 0.2 % Normal 0.0-2.5 [facility] ([place]) Comment on above: Performed By: #### A DIFF, GFR, MDW, CMP, ANEU, CBC, LIP #### [address] [address] Eosinophil, Absolute 0.0 10 3/mcL Normal 0.0-0.4 [facility] ([place]) Comment on above: Performed By: #### A DIFF, GFR, MDW, CMP, ANEU, CBC, LIP #### [address] [address] Eosinophils/100 WBC (Bld) 0.1 % Normal 0.0-7.0 [facility] ([place]) Comment on above: Performed By: #### A DIFF, GFR, MDW, CMP, ANEU, CBC, LIP #### [address] [address] Lymphocyte, Absolute 2.7 10 3/mcL Normal 0.8-3.9 [facility] ([place]) Comment on above: Performed By: #### A DIFF, GFR, MDW, CMP, ANEU, CBC, LIP #### [address] [address] Lymphocytes/100 WBC (Bld) 17.3 % Normal 10.0-50.0 [facility] ([place]) Comment on above: Performed By: #### A DIFF, GFR, MDW, CMP, ANEU, CBC, LIP #### [address] [address] Monocyte, Absolute 0.9 10 3/mcL Normal 0.2-1.0 [facility] ([place]) Comment on above: Performed By: #### A DIFF, GFR, MDW, CMP, ANEU, CBC, LIP #### [address] [address] Monocytes/100 WBC (Bld) 5.7 % Normal 1.7-13.0 [facility] ([place]) Comment on above: Performed By: #### A DIFF, GFR, MDW, CMP, ANEU, CBC, LIP #### [address] [address] Neutrophils/100 WBC (Bld) 76.7 % Normal 37.0-80.0 [facility] ([place]) Comment on above: Performed By: #### A DIFF, GFR, MDW, CMP, ANEU, CBC, LIP #### [address] [address] .GFRon 01-10-2023 GFR 64 ml/min/1.73sqm Normal [facility] ([place]) Comment on above: Result Comment: GFR Population [...] GFR, MDW, CMP, ANEU, CBC, LIP #### [address] [address] GFR Non- 53 ml/min/1.73sqm Normal [facility] ([place]) Comment on above: Result Comment: GFR Population [...] GFR, MDW, CMP, ANEU, CBC, LIP #### [place] [id number] .MDWon 01-10-2023 Monocyte Distribution Width 14.44 Normal 0.00-20.00 [facility] ([place]) Comment on above: Result Comment: For ED adult patients suspected of sepsis, MDW<=20.0 does not rule out sepsis or risk of sepsis Performed By: #### A DIFF, GFR, MDW, CMP, ANEU, CBC, LIP #### [place] [id number] .NEUABSon 01-10-2023 Neutrophil, Absolute 11.9 10 3/mcL High 2.9-6.2 [facility] ([place]) Comment on above: Performed By: #### A DIFF, GFR, MDW, CMP, ANEU, CBC, LIP #### [place] [id number] .Urinalysis Microscopic (AO) on 01-10-2023 UA Bacteria Trace Abnormal [facility] ([place]) Comment on above: Performed By: #### A DIFF, GFR, MDW, CMP, ANEU, CBC, LIP #### [address] [address] UA RBC 0-5 Abnormal None Seen [facility] ([place]) Comment on above: Performed By: #### A DIFF, GFR, MDW, CMP, ANEU, CBC, LIP #### [address] [address] UA Squam Epithelial LOADED Abnormal None Seen [facility] ([place]) Comment on above: Performed By: #### A DIFF, GFR, MDW, CMP, ANEU, CBC, LIP #### [place] [address] UA WBC 0-5 Abnormal None Seen [facility] ([place]) Comment on above: Performed By: #### A DIFF, GFR, MDW, CMP, ANEU, CBC, LIP #### [place] [address] UA Yeast Trace Abnormal [facility] ([place]) Comment on above: Performed By: #### A DIFF, GFR, MDW, CMP, ANEU, CBC, LIP #### [place] [address] CBCon 01-10-2023 Erythrocyte distribution width (RBC) [Ratio] 14.7 % High 11.5-14.5 [facility] ([place]) Comment on above: Performed By: #### A DIFF, GFR, MDW, CMP, ANEU, CBC, LIP #### [place] [address] Hematocrit (Bld) [Volume fraction] 38.7 % Normal 37.0-47.0 [facility] ([place]) Comment on above: Performed By: #### A DIFF, GFR, MDW, CMP, ANEU, CBC, LIP #### [place] [address] Hgb 12.9 G/dL Normal 12.0-16.0 [facility] ([place]) Comment on above: Performed By: #### A DIFF, GFR, MDW, CMP, ANEU, CBC, LIP #### [place] [address] MCH (RBC) [Entitic mass] 25.7 pg Low 27.0-31.2 [facility] ([place]) Comment on above: Performed By: #### A DIFF, GFR, MDW, CMP, ANEU, CBC, LIP #### [place] [address] MCHC 33.3 G/dL Normal 33.0-37.0 [facility] ([place]) Comment on above: Performed By: #### A DIFF, GFR, MDW, CMP, ANEU, CBC, LIP #### [address] [address] MCV (RBC) [Entitic vol] 77.4 fL Low 80.0-94.0 [facility] ([place]) Comment on above: Performed By: #### A DIFF, GFR, MDW, CMP, ANEU, CBC, LIP #### [address] [address] Platelet 438 10 3/mcL High 130-400 [facility] ([place]) Comment on above: Performed By: #### A DIFF, GFR, MDW, CMP, ANEU, CBC, LIP #### [address] [address] Platelet mean volume (Bld) [Entitic vol] 7.2 fL Low 7.4-10.4 [facility] ([place]) Comment on above: Performed By: #### A DIFF, GFR, MDW, CMP, ANEU, CBC, LIP #### [address] [address] RBC 5.01 10 6/mcL Normal 4.20-5.40 [facility] ([place]) Comment on above: Performed By: #### A DIFF, GFR, MDW, CMP, ANEU, CBC, LIP #### [address] [address] WBC 15.5 10 3/mcL High 4.6-10.8 [facility] ([place]) Comment on above: Performed By: #### A DIFF, GFR, MDW, CMP, ANEU, CBC, LIP #### [address] [address] CMPon 01-10-2023 Albumin Level 3.9 G/dL Normal 3.5-5.0 [facility] ([place]) Comment on above: Performed By: #### A DIFF, GFR, MDW, CMP, ANEU, CBC, LIP #### [address] [address] Albumin/Globulin [Mass ratio] 0.9 {ratio} Low 1.1-2.5 [facility] ([place]) Comment on above: Performed By: #### A DIFF, GFR, MDW, CMP, ANEU, CBC, LIP #### [address] [address] ALP [Catalytic activity/Vol] 84 U/L Normal 40-135 [facility] ([place]) Comment on above: Performed By: #### A DIFF, GFR, MDW, CMP, ANEU, CBC, LIP #### [address] [address] ALT [Catalytic activity/Vol] 17 U/L Normal 14-59 [facility] ([place]) Comment on above: Performed By: #### A DIFF, GFR, MDW, CMP, ANEU, CBC, LIP #### [address] [address] AST [Catalytic activity/Vol] 13 U/L Normal 10-40 [facility] ([place]) Comment on above: Performed By: #### A DIFF, GFR, MDW, CMP, ANEU, CBC, LIP #### [address] [address] Bili Total 0.6 mg/dL Normal 0.2-1.0 [facility] ([place]) Comment on above: Result Comment: Use of this assay is not recommended for patients undergoing treatment with eltrombopag due to the potential for falsely elevated results. Performed By: #### A DIFF, GFR, MDW, CMP, ANEU, CBC, LIP #### [address] [address] BUN/Creatinine Ratio 11 ratio Normal 7-27 [facility] ([place]) Comment on above: Performed By: #### A DIFF, GFR, MDW, CMP, ANEU, CBC, LIP #### [address] [address] Calcium [Mass/Vol] 9.4 mg/dL Normal 8.4-10.2 [facility] ([place]) Comment on above: Performed By: #### A DIFF, GFR, MDW, CMP, ANEU, CBC, LIP #### [address] [address] Chloride [Moles/Vol] 99 mmol/L Normal 98-107 [facility] ([place]) Comment on above: Performed By: #### A DIFF, GFR, MDW, CMP, ANEU, CBC, LIP #### [address] [address] CO2 [Moles/Vol] 22 mmol/L Normal 22-29 [facility] ([place]) Comment on above: Performed By: #### A DIFF, GFR, MDW, CMP, ANEU, CBC, LIP #### [address] [address] Creatinine [Mass/Vol] 1.20 mg/dL High 0.55-1.02 [facility] ([place]) Comment on above: Performed By: #### A DIFF, GFR, MDW, CMP, ANEU, CBC, LIP #### [address] [address] Electrolyte Balance 17.0 mEq/L High 4.0-15.0 [facility] ([place]) Comment on above: Performed By: #### A DIFF, GFR, MDW, CMP, ANEU, CBC, LIP #### [address] [address] Globulin 4.4 G/dL Normal [facility] ([place]) Comment on above: Performed By: #### A DIFF, GFR, MDW, CMP, ANEU, CBC, LIP #### [address] [address] Glucose [Mass/Vol] 270 mg/dL High 70-105 [facility] ([place]) Comment on above: Performed By: #### A DIFF, GFR, MDW, CMP, ANEU, CBC, LIP #### [address] [address] Potassium [Moles/Vol] 3.4 mmol/L Low 3.5-5.1 [facility] ([place]) Comment on above: Performed By: #### A DIFF, GFR, MDW, CMP, ANEU, CBC, LIP #### [address] [address] Sodium [Moles/Vol] 138 mmol/L Normal 136-145 [facility] ([place]) Comment on above: Performed By: #### A DIFF, GFR, MDW, CMP, ANEU, CBC, LIP #### [place] [id number] [place], [place] [address] Total Protein 8.3 G/dL High 6.4-8.2 [facility] ([place]) Comment on above: Performed By: #### A DIFF, GFR, MDW, CMP, ANEU, CBC, LIP #### [place] [id number] [place], [place] [address] Urea nitrogen [Mass/Vol] 13 mg/dL Normal 7-18 [facility] [facility] ([place]) Comment on above: Performed By: #### A DIFF, GFR, MDW, CMP, ANEU, CBC, LIP #### [id number] [place], [place] [address] CT ABD/PELVIS W/ IV CONTRAST ONLYon 01-10-2023 [...] 01/10/2023 4:59:31 PM Ordering Provider: ESSIE DOWNS [facility] ([place]) LABORATORYOrdered By: SYSTEM SYSTEM on 01-10-2023 Albumin [...] 01-10-2023 Lipase Level 39 U/L Normal 16-77 [facility] ([place]) Comment on above: Performed By: #### A DIFF, GFR, MDW, CMP, ANEU, CBC, LIP #### [address] [address] PREGUon 01-10-2023 HCG ( test) Ql (U) Negative Normal [facility] ([place]) Comment on above: Performed By: #### A DIFF, GFR, MDW, CMP, ANEU, CBC, LIP #### [address] [address] test (u) int Not detected Invalid Interpretation Code [facility] ([place]) Comment on above: Performed By: #### A DIFF, GFR, MDW, CMP, ANEU, CBC, LIP #### [address] [address] UAon 01-10-2023 Color (U) Yellow Normal [facility] ([place]) Comment on above: Performed By: #### A DIFF, GFR, MDW, CMP, ANEU, CBC, LIP #### [address] [address] Glucose (U) [Mass/Vol] 500 mg/dL Abnormal Negative [facility] ([place]) Comment on above: Performed By: #### A DIFF, GFR, MDW, CMP, ANEU, CBC, LIP #### [address] [address] Ketones Ql (U) >=160 Abnormal Negative [facility] ([place]) Comment on above: Performed By: #### A DIFF, GFR, MDW, CMP, ANEU, CBC, LIP #### [address] [address] UA Appear Slightly Cloudy Abnormal Clear [facility] ([place]) Comment on above: Performed By: #### A DIFF, GFR, MDW, CMP, ANEU, CBC, LIP #### [address] [address] UA Blood Negative Normal Negative [facility] ([place]) Comment on above: Performed By: #### A DIFF, GFR, MDW, CMP, ANEU, CBC, LIP #### [address] [address] UA Leuk Est Negative Normal Negative [facility] ([place]) Comment on above: Performed By: #### A DIFF, GFR, MDW, CMP, ANEU, CBC, LIP #### [address] [address] UA Nitrite Negative Normal Negative [facility] ([place]) Comment on above: Performed By: #### A DIFF, GFR, MDW, CMP, ANEU, CBC, LIP #### [address] [address] UA pH 8.5 Abnormal 5.0 - 8.0 [facility] ([place]) Comment on above: Performed By: #### A DIFF, GFR, MDW, CMP, ANEU, CBC, LIP #### [address] [address] UA Protein 100 mg/dL Abnormal Negative [facility] ([place]) Comment on above: Performed By: #### A DIFF, GFR, MDW, CMP, ANEU, CBC, LIP #### [address] [address] UA Spec Grav 1.020 Normal 1.015-1.025 [facility] ([place]) Comment on above: Performed By: #### A DIFF, GFR, MDW, CMP, ANEU, CBC, LIP #### [address] [address] UA Specimen Type Clean Catch Normal [facility] ([place]) Comment on above: Performed By: #### A DIFF, GFR, MDW, CMP, ANEU, CBC, LIP #### [address] [address] UA Urobilinogen 0.2 E.U./dL Normal 0.2-1.0 [facility] ([place]) Comment on above: Performed By: #### A DIFF, GFR, MDW, CMP, ANEU, CBC, LIP #### [address] [address] Urobilinogen (U) [Mass/Vol] Negative Normal Negative [facility] ([place]) Comment on above: Performed By: #### A DIFF, GFR, MDW, CMP, ANEU, CBC, LIP #### [address] [address] Absolute lymphocyte countOrd ered By: Carlos Calvo on 01-09-2023 Lymphocytes Auto (Unsp spec) [#/Vol] 2.47 10*3/uL 0.83-4.51 [facility] Basophil percentageOrdered B y: Carlos Calvo on 01-09-2023 Basophil percentage 0 SEEN /hpf 0-5 [facility] Basophil percentage 247 mg/dL 74-106 [facility] Basophil percentage 8.7 g/dL 6.4-8.2 [facility] Basophil percentage 0.60 mg/dL 0.20-1.00 [facility] Basophil percentage 134 mmol/L 136-145 [facility] Basophil percentage 4.0 mmol/L 3.5-5.1 [facility] Basophil percentage 101 mmol/L 98-107 [facility] Basophils (Bld) [#/Vol] 10.7 10*3/uL 4.4-11.0 [facility] Basophils (Bld) [#/Vol] 7.6 10*3/uL 2.0-7.7 [facility] Basophils/100 WBC (Bld) 0.5 % 0-1 [facility] Basophils/100 WBC (Bld) 70.5 % 47-70 [facility] Basophils/100 WBC (Bld) 0.2 % 0-5 [facility] Bilirubin [Mass/Vol] 0.60 mg/dL 0.20-1.00 [facility] Comment on above: For patients on eltr ombopag therapy, use of Dimension [place] TBIL is not recommended. Chloride [Moles/Vol] 101 mmol/L 98-107 [facility] Eosinophils/100 WBC (Bld) 0.2 % 0-5 [facility] Glucose [Mass/Vol] 247 mg/dL 74-106 [facility] Comment on above: Glucose result great er than or equal to 200 mg/dLsuggests DIABETES MELLITUS per A.D.A. criteria. Neutrophils (Bld) [#/Vol] 7.6 10*3/uL 2.0-7.7 [facility] Neutrophils/100 WBC (Bld) 70.5 % 47-70 [facility] Potassium [Moles/Vol] 4.0 mmol/L 3.5-5.1 [facility] Comment on above: Slight Hemolysis, Re sult may be falsely increased. Protein [Mass/Vol] 8.7 g/dL 6.4-8.2 [facility] Sodium [Moles/Vol] 134 mmol/L 136-145 [facility] WBC (Bld) [#/Vol] 10.7 10*3/uL 4.4-11.0 [facility] Bilirubin Test strip Ql (U)O rdered By: Carlos Calvo on 01-09-2023 Bilirubin Ql (U) Negative Negative [facility] Blood erythrocytes count (nu mber/volume)Ordered By: Carlos Calvo on 01-09-2023 RBC (Bld) [#/Vol] 5.01 10*6/uL 4.2-5.4 [facility] Blood hemoglobin measurement (mass/volume)Ordered By: Carlos Calvo on 01-09-2023 Hemoglobin (Bld) [Mass/Vol] 13.0 g/dL 12.0-15.0 [facility] Blood lymphocytes/100 leukoc ytesOrdered By: Carlos Calvo on 01-09-2023 Lymphocytes/100 WBC (Bld) 23.0 % 19-41 [facility] Blood monocytes/100 leukocyt esOrdered By: Carlos Calvo on 01-09-2023 Monocytes/100 WBC (Bld) 4.9 % 0-10 [facility] Blood platelet mean volumeOr dered By: Carlos Calvo on 01-09-2023 Platelet mean volume (Bld) [Entitic vol] 9.5 fL 6.2-12.0 [facility] Determination of erythrocyte mean corpuscular volume (MCV)Ordered By: Carlos Calvo on 01-09-2023 MCV (RBC) [Entitic vol] 79.8 fL 81-99 [facility] Glucose Glucometer (dC) [M ass/Vol]Ordered By: Deann Guerrero on 01-09-2023 Glucose [Mass/Vol] 254 mg/dL 74-106 [facility] Comment on above: MANAGEMENT OF PATIEN T CARE PER NURSING PROTOCOL Hematocrit Auto (Bld) [Volum e fraction]Ordered By: Carlos Calvo on 01-09-2023 Hematocrit (Bld) [Volume fraction] 40.0 % 37-47 [facility] Ketones Test strip Ql (U)Ord ered By: Carlos Calvo on 01-09-2023 Ketones Ql (U) 50 mg/dl Negative [facility] Laboratory - Chemistry and C hemistry - challengeOrdered By: Carlos Calvo on 01-09-2023 HCG ( test) Ql (U) Negative [facility] Comment on above: Very dilute urine sp ecimens, as indicated by a low specificgravity, may not contain small business representative levels of hCG. If is still suspected, a first morning urinespecimen should be collected 48 hours later and tested. ALP [Catalytic activity/Vol] 85 U/L 45-117 [facility] ALT [Catalytic activity/Vol] 20 U/L 13-56 [facility] CO2 [Moles/Vol] 21.0 mmol/L 21.0-32.0 [facility] Globulin (S) [Mass/Vol] 5.2 g/dL 2.2-4.2 [facility] Lipase [Catalytic activity/Vol] 38 U/L 13-75 [facility] Comment on above: Please note:LIPASE r evised reference range effective 22. New Lipase methodology. Expected to produce lower values than the previous assay method. NEW Reference Range: 13 - 75 U/L Urea nitrogen/Creatinine [Mass ratio] 7.9 mg/mg 10-20 [facility] Laboratory - Hematology and Cell countsOrdered By: Carlos Calvo on 01-09-2023 Erythrocyte distribution width (RBC) [Entitic vol] 38.3 fL 35.1-43.9 [facility] Erythrocyte distribution width (RBC) [Ratio] 13.4 % 11.6-14.6 [facility] Immature granulocytes/100 WBC (Bld) 0.900 % 0.0-0.9 [facility] Comment on above: IG% - Immature Granu locytes (promyelocytes, myelocytes and metamyelocytes) > 1% indicates that a LEFT SHIFT is Present. MCH (RBC) [Entitic mass] 25.9 pg 27.0-32.0 [facility] Nucleated RBC/100 WBC (Bld) [Ratio] 0 % 0-5 [facility] MCHC Auto (RBC) [Mass/Vol]Or dered By: Carlos Calvo on 01-09-2023 MCHC (RBC) [Mass/Vol] 32.5 g/dL 32-36 [facility] Mucus LM Ql (Urine sed)Order ed By: Carlos Calvo on 01-09-2023 Mucus Ql (Urine sed) 0 SEEN /hpf [facility] Nitrite Test strip Ql (U)Ord ered By: Carlos Calvo on 01-09-2023 Nitrite Ql (U) Negative Negative [facility] No Panel InformationOrdered By: Carlos Calvo on 01-09-2023 Negative [facility] Estimated Creatinine Clearance Calc 67.55 ml/min [facility] Estimated GFR (MDRD) Amer 72 mL/min >60 [facility] Comment on above: GFR Calc Estimated GFR (MDRD) Non-Af Amer 59 mL/min >60 [facility] Comment on above: Non- GFR Calc 25.9 pg 27.0-32.0 [facility] 13.4 % 11.6-14.6 [facility] 38.3 fl 35.1-43.9 [facility] 0.900 % 0.0-0.9 [facility] 0 % 0-5 [facility] 59 mL/min >60 [facility] 72 mL/min >60 [facility] 67.55 ml/min [facility] 7.9 RATIO 10-20 [facility] 5.2 g/dL 2.2-4.2 [facility] 38 U/L 13-75 [facility] 85 U/L 45-117 [facility] 20 U/L 13-56 [facility] 21.0 mmol/L 21.0-32.0 [facility] Platelets bldOrdered By: Analia Calvo on 01-09-2023 Platelets (Bld) [#/Vol] 397 10*3/uL 150-450 [facility] Protein Test strip Ql (U)Ord ered By: Carlos Calvo on 01-09-2023 Protein Ql (U) 15 mg/dl Negative [facility] Serum or plasma albumin hussein urement (mass/volume)Ordered By: Carlos Calvo on 01-09-2023 Albumin [Mass/Vol] 3.5 g/dL 3.2-5.0 [facility] Serum or plasma albumin/glob ulin mass ratioOrdered By: Carlos Calvo on 01-09-2023 Albumin/Globulin [Mass ratio] 0.7 {ratio} 0.9-2.4 [facility] Serum or plasma calcium hussein urement (mass/volume)Ordered By: Carlos Calvo on 01-09-2023 Calcium [Mass/Vol] 9.5 mg/dL 8.5-10.1 [facility] Serum or plasma creatinine m easurement (mass/volume)Ordered By: Carlos Calvo on 01-09-2023 Creatinine [Mass/Vol] 1.14 mg/dL 0.55-1.02 [facility] Comment on above: The validity of the calculated GFR & GFRAA in patients over 70 years has not been determined. Clinical correlation is essential. Serum or plasma urea nitroge n measurement (mass/volume)Ordered By: Carlos Calvo on 01-09-2023 Urea nitrogen [Mass/Vol] 9 mg/dL 7-18 [facility] Squamous epithelial cells de tection in urine sediment by light microscopyOrdered By: Carlos Calvo on 01-09-2023 Epithelial cells.squamous LM Ql (Urine sed) 5-10 SEEN /hpf 5-10 [facility] Thin prep Papanicolaou smear with manual screeningOrdered By: Carlos Calvo on 01-09-2023 Thin prep Papanicolaou smear with manual screening 19 U/L 15-37 [facility] Comment on above: Slight Hemolysis, Re sult may be falsely increased. Thin prep Papanicolaou smear with manual screening 12 5-15 [facility] Urine blood detectionOrdered By: Carlos Calvo on 01-09-2023 RBC Ql (U) 10 /ul Negative [facility] RBC Ql (U) 0 SEEN /hpf 0-5 [facility] Urine clarityOrdered By: Analia Calvo on 01-09-2023 Clarity (U) Clear Clear [facility] Urine color determinationOrd ered By: Carlos Calvo on 01-09-2023 Color (U) Yellow Yellow [facility] Urine glucose detectionOrder ed By: Carlos Calvo on 01-09-2023 Glucose Ql (U) 1000 mg/dl Normal [facility] Urine leukocyte esterase det ection by dipstickOrdered By: Carlos Calvo on 01-09-2023 Leukocyte esterase Test strip Ql (U) 25 /ul Negative [facility] Urine pHOrdered By: Carlos mclain on 01-09-2023 pH (U) 8.0 [pH] 5.0 - 8.0 [facility] Urine sediment bacteria coun t by microscopy (number/high power field)Ordered By: Carlos Calvo on 01-09-2023 Bacteria LM.HPF (Urine sed) [#/Area] 0 /[HPF] None Seen [facility] Urine specific gravity measu rementOrdered By: Carlos Calvo on 01-09-2023 Specific gravity (U) [Rel density] 1.015 1.002-1.030 [facility] Urobilinogen Auto test strip Ql (U)Ordered By: Carlos Calvo on 01-09-2023 Urobilinogen Ql (U) Normal mg/dl Normal [facility] Absolute lymphocyte countOrd ered By: Poli Barfield on 01-07-2023 Lymphocytes Auto (Unsp spec) [#/Vol] 3.48 10*3/uL 0.83-4.51 [facility] Basophil percentageOrdered B y: Poli Barfield on 01-07-2023 Basophil percentage 202 mg/dL 74-106 [facility] Basophil percentage 135 mmol/L 136-145 [facility] Basophil percentage 3.8 mmol/L 3.5-5.1 [facility] Basophil percentage 102 mmol/L 98-107 [facility] Basophils (Bld) [#/Vol] 9.0 10*3/uL 4.4-11.0 [facility] Basophils (Bld) [#/Vol] 4.8 10*3/uL 2.0-7.7 [facility] Basophils/100 WBC (Bld) 0.4 % 0-1 [facility] Basophils/100 WBC (Bld) 53.2 % 47-70 [facility] Basophils/100 WBC (Bld) 1.0 % 0-5 [facility] Chloride [Moles/Vol] 102 mmol/L 98-107 [facility] Eosinophils/100 WBC (Bld) 1.0 % 0-5 [facility] Glucose [Mass/Vol] 202 mg/dL 74-106 [facility] Comment on above: Glucose result great er than or equal to 200 mg/dLsuggests DIABETES MELLITUS per A.D.A. criteria. Neutrophils (Bld) [#/Vol] 4.8 10*3/uL 2.0-7.7 [facility] Neutrophils/100 WBC (Bld) 53.2 % 47-70 [facility] Potassium [Moles/Vol] 3.8 mmol/L 3.5-5.1 [facility] Sodium [Moles/Vol] 135 mmol/L 136-145 [facility] WBC (Bld) [#/Vol] 9.0 10*3/uL 4.4-11.0 [facility] Blood erythrocytes count (nu mber/volume)Ordered By: Poli Barfield on 01-07-2023 RBC (Bld) [#/Vol] 4.92 10*6/uL 4.2-5.4 [facility] Blood hemoglobin measurement (mass/volume)Ordered By: Poli Barfield on 01-07-2023 Hemoglobin (Bld) [Mass/Vol] 12.7 g/dL 12.0-15.0 [facility] Blood lymphocytes/100 leukoc ytesOrdered By: Poli Barfield on 01-07-2023 Lymphocytes/100 WBC (Bld) 38.5 % 19-41 [facility] Blood monocytes/100 leukocyt esOrdered By: Poli Barfield on 01-07-2023 Monocytes/100 WBC (Bld) 5.9 % 0-10 [facility] Blood platelet mean volumeOr dered By: Poli Barfield on 01-07-2023 Platelet mean volume (Bld) [Entitic vol] 9.1 fL 6.2-12.0 [facility] Determination of erythrocyte mean corpuscular volume (MCV)Ordered By: Poli Barfield on 01-07-2023 MCV (RBC) [Entitic vol] 79.7 fL 81-99 [facility] Glucose Glucometer (BldC) [M ass/Vol]Ordered By: Poli Barfield on 01-07-2023 Glucose [Mass/Vol] 206 mg/dL 74-106 [facility] Comment on above: MANAGEMENT OF PATIEN T CARE PER NURSING PROTOCOL Hematocrit Auto (Bld) [Volum e fraction]Ordered By: Poli Barfield on 01-07-2023 Hematocrit (Bld) [Volume fraction] 39.2 % 37-47 [facility] Laboratory - Chemistry and C hemistry - challengeOrdered By: Poli Barfield on 01-07-2023 HCG ( test) Ql (U) Negative [facility] Comment on above: Very dilute urine sp ecimens, as indicated by a low specificgravity, may not contain small business representative levels of hCG. If is still suspected, a first morning urinespecimen should be collected 48 hours later and tested. CO2 [Moles/Vol] 24.0 mmol/L 21.0-32.0 [facility] Urea nitrogen/Creatinine [Mass ratio] 8.9 mg/mg 10-20 [facility] Laboratory - Drug toxicology Ordered By: Poli Barfield on 01-07-2023 Amphetamines Ql (U) Negative <1000 ng/mL [facility] Benzodiazepines Ql (U) Negative < 200 ng/mL [facility] Cannabinoids Screen Ql (U) Positive < 50 ng/mL [facility] Cocaine Ql (U) Negative < 300 ng/mL [facility] Opiates Ql (U) Negative < 300 ng/mL [facility] Laboratory - Hematology and Cell countsOrdered By: Poli Barfield on 01-07-2023 Erythrocyte distribution width (RBC) [Entitic vol] 38.9 fL 35.1-43.9 [facility] Erythrocyte distribution width (RBC) [Ratio] 13.5 % 11.6-14.6 [facility] Immature granulocytes/100 WBC (Bld) 1.000 % 0.0-0.9 [facility] Comment on above: IG% - Immature Granu locytes (promyelocytes, myelocytes and metamyelocytes) > 1% indicates that a LEFT SHIFT is Present. MCH (RBC) [Entitic mass] 25.8 pg 27.0-32.0 [facility] Nucleated RBC/100 WBC (Bld) [Ratio] 0 % 0-5 [facility] MCHC Auto (RBC) [Mass/Vol]Or dered By: Poli Barfield on 01-07-2023 MCHC (RBC) [Mass/Vol] 32.4 g/dL 32-36 [facility] No Panel InformationOrdered By: Poli Barfield on 01-07-2023 MDMA (Ecstasy) Screen Positive < 500 ng/mL [facility] Urine Barbiturates Screen Negative < 200 ng/mL [facility] Urine Drug Screen Comment [facility] Comment on above: CONFIRMATORY TESTING FOR [...] Methadone Screen Negative < 300 ng/mL [facility] Negative < 300 ng/mL [facility] Positive < 50 ng/mL [facility] Estimated Creatinine Clearance Calc 68.76 ml/min [facility] Estimated GFR (MDRD) Amer 73 mL/min >60 [facility] Comment on above: GFR Calc Estimated GFR (MDRD) Non-Af Amer 60 mL/min >60 [facility] Comment on above: Non- GFR Calc 25.8 pg 27.0-32.0 [facility] 13.5 % 11.6-14.6 [facility] 38.9 fl 35.1-43.9 [facility] 1.000 % 0.0-0.9 [facility] 0 % 0-5 [facility] 60 mL/min >60 [facility] 73 mL/min >60 [facility] 68.76 ml/min [facility] 8.9 RATIO 10-20 [facility] 24.0 mmol/L 21.0-32.0 [facility] Platelets bldOrdered By: Devon Barfield on 01-07-2023 Platelets (Bld) [#/Vol] 380 10*3/uL 150-450 [facility] Serum or plasma calcium hussein urement (mass/volume)Ordered By: Poli Barfield on 01-07-2023 Calcium [Mass/Vol] 9.0 mg/dL 8.5-10.1 [facility] Serum or plasma creatinine m easurement (mass/volume)Ordered By: Poli Barfield on 01-07-2023 Creatinine [Mass/Vol] 1.12 mg/dL 0.55-1.02 [facility] Comment on above: The validity of the calculated GFR & GFRAA in patients over 70 years has not been determined. Clinical correlation is essential. Serum or plasma urea nitroge n measurement (mass/volume)Ordered By: Poli Barfield on 01-07-2023 Urea nitrogen [Mass/Vol] 10 mg/dL 7-18 [facility] Thin prep Papanicolaou smear with manual screeningOrdered By: Poli Barfield on 01-07-2023 Thin prep Papanicolaou smear with manual screening 9 -15 [facility] Urine phencyclidine (PCP) de tectionOrdered By: Poli Barfield on 01-07-2023 Phencyclidine Ql (U) Negative < 25 ng/mL [facility] Basophil percentageOrdered B y: Amy Solorzano on 11-25-2022 Basophil percentage 493 mg/dL 74-106 [facility] Basophil percentage 8.0 g/dL 6.4-8.2 [facility] Basophil percentage 0.20 mg/dL 0.20-1.00 [facility] Basophil percentage 130 mmol/L 136-145 [facility] Basophil percentage 4.3 mmol/L 3.5-5.1 [facility] Basophil percentage 99 mmol/L 98-107 [facility] Basophils (Bld) [#/Vol] 8.2 10*3/uL 4.4-11.0 [facility] Bilirubin [Mass/Vol] 0.20 mg/dL 0.20-1.00 [facility] Comment on above: For patients on eltr ombopag therapy, use of Dimension [place] TBIL is not recommended. Chloride [Moles/Vol] 99 mmol/L 98-107 [facility] Glucose [Mass/Vol] 493 mg/dL 74-106 [facility] Comment on above: Critical Result(s) C alled at: 11:44:33 11/25/2022 by: NICOLE PATE TO GHISLAINE MCQUEEN. Results read back by same.Glucose result greater than or equal to 200 mg/dLsuggests DIABETES MELLITUS per A.D.A. criteria. Potassium [Moles/Vol] 4.3 mmol/L 3.5-5.1 [facility] Protein [Mass/Vol] 8.0 g/dL 6.4-8.2 [facility] Sodium [Moles/Vol] 130 mmol/L 136-145 [facility] WBC (Bld) [#/Vol] 8.2 10*3/uL 4.4-11.0 [facility] Blood erythrocytes count (nu mber/volume)Ordered By: Amy Solorzano on 11-25-2022 RBC (Bld) [#/Vol] 4.74 10*6/uL 4.2-5.4 [facility] Blood hemoglobin measurement (mass/volume)Ordered By: Amy Solorzano on 11-25-2022 Hemoglobin (Bld) [Mass/Vol] 12.5 g/dL 12.0-15.0 [facility] Blood platelet mean volumeOr dered By: Amy Solorzano on 11-25-2022 Platelet mean volume (Bld) [Entitic vol] 9.5 fL 6.2-12.0 [facility] Determination of erythrocyte mean corpuscular volume (MCV)Ordered By: Amy Solorzano on 11-25-2022 MCV (RBC) [Entitic vol] 80.2 fL 81-99 [facility] Hematocrit Auto (Bld) [Volum e fraction]Ordered By: Amy Solorzano on 11-25-2022 Hematocrit (Bld) [Volume fraction] 38.0 % 37-47 [facility] - Chemistry and C hemistry - challengeOrdered By: Amy Solorzano on 11-25-2022 ALP [Catalytic activity/Vol] 110 U/L 45-117 [facility] ALT [Catalytic activity/Vol] 26 U/L 13-56 [facility] CO2 [Moles/Vol] 19.0 mmol/L 21.0-32.0 [facility] Globulin (S) [Mass/Vol] 5.0 g/dL 2.2-4.2 [facility] Urea nitrogen/Creatinine [Mass ratio] 11.3 mg/mg 10-20 [facility] - Hematology and Cell countsOrdered By: Amy Solorzano on 11-25-2022 Erythrocyte distribution width (RBC) [Entitic vol] 40.1 fL 35.1-43.9 [facility] Erythrocyte distribution width (RBC) [Ratio] 13.9 % 11.6-14.6 [facility] MCH (RBC) [Entitic mass] 26.4 pg 27.0-32.0 [facility] MCHC Auto (RBC) [Mass/Vol]Or dered By: Amy Solorzano on 11-25-2022 MCHC (RBC) [Mass/Vol] 32.9 g/dL 32-36 [facility] No Panel InformationOrdered By: Amy Solorzano on 11-25-2022 Estimated GFR (MDRD) Amer 71 mL/min >60 [facility] Comment on above: GFR Calc Estimated GFR (MDRD) Non-Af Amer 59 mL/min >60 [facility] Comment on above: Non- GFR Calc 26.4 pg 27.0-32.0 [facility] 13.9 % 11.6-14.6 [facility] 40.1 fl 35.1-43.9 [facility] 59 mL/min >60 [facility] 71 mL/min >60 [facility] 11.3 RATIO 10-20 [facility] 5.0 g/dL 2.2-4.2 [facility] 110 U/L 45-117 [facility] 26 U/L 13-56 [facility] 19.0 mmol/L 21.0-32.0 [facility] Platelets bldOrdered By: Glendy Solorzano on 11-25-2022 Platelets (Bld) [#/Vol] 375 10*3/uL 150-450 [facility] Serum or plasma albumin hussein urement (mass/volume)Ordered By: Amy Solorzano on 11-25-2022 Albumin [Mass/Vol] 3.0 g/dL 3.2-5.0 [facility] Serum or plasma albumin/glob ulin mass ratioOrdered By: Amy Solorzano on 11-25-2022 Albumin/Globulin [Mass ratio] 0.6 {ratio} 0.9-2.4 [facility] Serum or plasma calcium hussein urement (mass/volume)Ordered By: Amy Solorzano on 11-25-2022 Calcium [Mass/Vol] 8.2 mg/dL 8.5-10.1 [facility] Serum or plasma creatinine m easurement (mass/volume)Ordered By: Amy Solorzano on 11-25-2022 Creatinine [Mass/Vol] 1.15 mg/dL 0.55-1.02 [facility] Comment on above: The validity of the calculated GFR & GFRAA in patients over 70 years has not been determined. Clinical correlation is essential. Serum or plasma urea nitroge n measurement (mass/volume)Ordered By: Amy Solorzano on 11-25-2022 Urea nitrogen [Mass/Vol] 13 mg/dL 7-18 [facility] Thin prep Papanicolaou smear with manual screeningOrdered By: Amy Solorzano on 11-25-2022 Thin prep Papanicolaou smear with manual screening 15 U/L 15-37 [facility] Thin prep Papanicolaou smear with manual screening 12 5-15 [facility] Thin prep Papanicolaou smear with manual screening 6.1 mg/L NO RANGE EST. [facility] Whole blood hemoglobin A1c/t otal hemoglobin ratio (mass fraction)Ordered By: Amy Solorzano on 11-25-2022 HbA1c (Bld) [Mass fraction] 12.1 % 3.8-5.6 [facility] Comment on above: Normal < 5.7 % Predi abetic 5.7 - 6.4 % Diabetic >or= 6.5 % Please note range changes. Absolute lymphocyte countOrd ered By: Dr. Villatoro on 08-15-2022 Lymphocytes Auto (Unsp spec) [#/Vol] 2.49 10*3/uL 0.83-4.51 [facility] Basophil percentageOrdered B y: Dr. Villatoro on 08-15-2022 Basophils/100 WBC (Bld) 0.4 % 0-1 [facility] Chloride [Moles/Vol] 104 mmol/L 98-107 [facility] Eosinophils/100 WBC (Bld) 0.9 % 0-5 [facility] Glucose [Mass/Vol] 215 mg/dL 74-106 [facility] Comment on above: Glucose result great er than or equal to 200 mg/dLsuggests DIABETES MELLITUS per A.D.A. criteria. Neutrophils (Bld) [#/Vol] 5.7 10*3/uL 2.0-7.7 [facility] Neutrophils/100 WBC (Bld) 62.3 % 47-70 [facility] Potassium [Moles/Vol] 4.0 mmol/L 3.5-5.1 [facility] Sodium [Moles/Vol] 137 mmol/L 136-145 [facility] WBC (Bld) [#/Vol] 9.2 10*3/uL 4.4-11.0 [facility] Blood erythrocytes count (nu mber/volume)Ordered By: Dr. Villatoro on 08-15-2022 RBC (Bld) [#/Vol] 3.60 10*6/uL 4.2-5.4 [facility] Blood hemoglobin measurement (mass/volume)Ordered By: Dr. Villatoro on 08-15-2022 Hemoglobin (Bld) [Mass/Vol] 9.2 g/dL 12.0-15.0 [facility] Blood lymphocytes/100 leukoc ytesOrdered By: Dr. Villatoro on 08-15-2022 Lymphocytes/100 WBC (Bld) 27.1 % 19-41 [facility] Blood monocytes/100 leukocyt esOrdered By: Dr. Villatoro on 08-15-2022 Monocytes/100 WBC (Bld) 8.2 % 0-10 [facility] Blood platelet mean volumeOr dered By: Dr. Villatoro on 08-15-2022 Platelet mean volume (Bld) [Entitic vol] 9.0 fL 6.2-12.0 [facility] Determination of erythrocyte mean corpuscular volume (MCV)Ordered By: Dr. Villatoro on 08-15-2022 MCV (RBC) [Entitic vol] 81.4 fL 81-99 [facility] Glucose Glucometer (BldC) [M ass/Vol]Ordered By: Dr. Villatoro on 08-15-2022 Glucose [Mass/Vol] 290 mg/dL 74-106 [facility] Comment on above: MANAGEMENT OF PATIEN T CARE PER NURSING PROTOCOL Hematocrit Auto (Bld) [Volum e fraction]Ordered By: Dr. Villatoro on 08-15-2022 Hematocrit (Bld) [Volume fraction] 29.3 % 37-47 [facility] Laboratory - Chemistry and C hemistry - challengeOrdered By: Dr. Villatoro on 08-15-2022 CO2 [Moles/Vol] 24.0 mmol/L 21.0-32.0 [facility] Urea nitrogen/Creatinine [Mass ratio] 7.1 mg/mg 10-20 [facility] Laboratory - Hematology and Cell countsOrdered By: Dr. Villatoro on 08-15-2022 Erythrocyte distribution width (RBC) [Entitic vol] 38.4 fL 35.1-43.9 [facility] Erythrocyte distribution width (RBC) [Ratio] 12.9 % 11.6-14.6 [facility] Immature granulocytes/100 WBC (Bld) 1.100 % 0.0-0.9 [facility] Comment on above: IG% - Immature Granu locytes (promyelocytes, myelocytes and metamyelocytes) > 1% indicates that a LEFT SHIFT is Present. MCH (RBC) [Entitic mass] 25.6 pg 27.0-32.0 [facility] Nucleated RBC/100 WBC (Bld) [Ratio] 0 % 0-5 [facility] MCHC Auto (RBC) [Mass/Vol]Or dered By: Dr. Villatoro on 08-15-2022 MCHC (RBC) [Mass/Vol] 31.4 g/dL 32-36 [facility] No Panel InformationOrdered By: Dr. Villatoro on 08-15-2022 Estimated Creatinine Clearance Calc 110.01 ml/min [facility] Estimated GFR (MDRD) Amer 125 mL/min >60 [facility] Comment on above: GFR Calc Estimated GFR (MDRD) Non-Af Amer 104 mL/min >60 [facility] Comment on above: Non- GFR Calc Platelets bldOrdered By: Dr. Villatoro on 08-15-2022 Platelets (Bld) [#/Vol] 458 10*3/uL 150-450 [facility] Serum or plasma C reactive p rotein measurement (mass/volume)Ordered By: Dr. Villatoro on 08-15-2022 CRP [Mass/Vol] 119.00 mg/L 0.0-3.0 [facility] Comment on above: C-Reactive Protein ( CRP) provides useful information for thediagnosis, therapy and monitoring of inflammatory processesand associated diseases. For the evaluation of Relative Riskfor Cardiovascular Disease, a High Sensitivity CRP (HSCRP)should be ordered. Serum or plasma calcium hussein urement (mass/volume)Ordered By: Dr. Villatoro on 08-15-2022 Calcium [Mass/Vol] 8.4 mg/dL 8.5-10.1 [facility] Serum or plasma creatinine m easurement (mass/volume)Ordered By: Dr. Villatoro on 08-15-2022 Creatinine [Mass/Vol] 0.70 mg/dL 0.55-1.02 [facility] Comment on above: The validity of the calculated GFR & GFRAA in patients over 70 years has not been determined. Clinical correlation is essential. Serum or plasma urea nitroge n measurement (mass/volume)Ordered By: Dr. Villatoro on 08-15-2022 Urea nitrogen [Mass/Vol] 5 mg/dL 7-18 [facility] Thin prep Papanicolaou smear with manual screeningOrdered By: Dr. Villatoro on 08-15-2022 Thin prep Papanicolaou smear with manual screening 9 5-15 [facility] Culture, urineOrdered By: Dr Marine Christiansen on 08-14-2022 Bacteria identified Cx Nom (U) Escherichia coli [facility] Basophil percentageOrdered B y: Dr. Urbina on 08-13-2022 Bilirubin [Mass/Vol] 0.50 mg/dL 0.20-1.00 [facility] Comment on above: For patients on eltr ombopag therapy, use of Dimension [place] TBIL is not recommended. Protein [Mass/Vol] 8.1 g/dL 6.4-8.2 [facility] Erythrocyte sedimentation ra teOrdered By: Dr. Villatoro on 08-13-2022 ESR (Bld) [Velocity] 43 mm/h 0-30 [facility] Laboratory - Chemistry and C hemistry - challengeOrdered By: Dr. Urbina on 08-13-2022 ALP [Catalytic activity/Vol] 99 U/L 45-117 [facility] ALT [Catalytic activity/Vol] 11 U/L 13-56 [facility] Globulin (S) [Mass/Vol] 5.6 g/dL 2.2-4.2 [facility] Magnesium [Mass/Vol] 2.2 mg/dL 1.6-2.6 [facility] Serum or plasma albumin hussein urement (mass/volume)Ordered By: Dr. Urbina on 08-13-2022 Albumin [Mass/Vol] 2.5 g/dL 3.2-5.0 [facility] Serum or plasma albumin/glob ulin mass ratioOrdered By: Dr. Urbina on 08-13-2022 Albumin/Globulin [Mass ratio] 0.4 {ratio} 0.9-2.4 [facility] Thin prep Papanicolaou smear with manual screeningOrdered By: Dr. Urbina on 08-13-2022 Thin prep Papanicolaou smear with manual screening 8 U/L 15-37 [facility] Absolute lymphocyte countOrd ered By: Dr. Christiansen on 08-12-2022 Lymphocytes Auto (Unsp spec) [#/Vol] 3.81 10*3/uL 0.83-4.51 [facility] Basophil percentageOrdered B y: Dr. Christiansen on 08-12-2022 Basophil percentage 10-25 SEEN /hpf 0-5 [facility] Basophils/100 WBC (Bld) 0.3 % 0-1 [facility] Bilirubin [Mass/Vol] 0.50 mg/dL 0.20-1.00 [facility] Comment on above: For patients on eltr ombopag therapy, use of Dimension [place] TBIL is not recommended. Chloride [Moles/Vol] 95 mmol/L 98-107 [facility] Eosinophils/100 WBC (Bld) 0.1 % 0-5 [facility] Glucose [Mass/Vol] 230 mg/dL 74-106 [facility] Comment on above: Glucose result great er than or equal to 200 mg/dLsuggests DIABETES MELLITUS per A.D.A. criteria. Neutrophils (Bld) [#/Vol] 13.2 10*3/uL 2.0-7.7 [facility] Neutrophils/100 WBC (Bld) 69.8 % 47-70 [facility] Potassium [Moles/Vol] 3.9 mmol/L 3.5-5.1 [facility] Comment on above: Slight Hemolysis, Re sult may be falsely increased. Protein [Mass/Vol] 9.2 g/dL 6.4-8.2 [facility] Sodium [Moles/Vol] 130 mmol/L 136-145 [facility] WBC (Bld) [#/Vol] 18.9 10*3/uL 4.4-11.0 [facility] Bilirubin Test strip Ql (U)O rdered By: Dr. Christiansen on 08-12-2022 Bilirubin Ql (U) Negative Negative [facility] Blood erythrocytes count (nu mber/volume)Ordered By: Dr. Christiansen on 08-12-2022 RBC (Bld) [#/Vol] 4.35 10*6/uL 4.2-5.4 [facility] Blood hemoglobin measurement (mass/volume)Ordered By: Dr. Christiansen on 08-12-2022 Hemoglobin (Bld) [Mass/Vol] 11.4 g/dL 12.0-15.0 [facility] Blood lymphocytes/100 leukoc ytesOrdered By: Dr. Christiansen on 08-12-2022 Lymphocytes/100 WBC (Bld) 20.1 % 19-41 [facility] Blood manual differential co mment interpretation (narrative result)Ordered By: Dr. Christiansen on 08-12-2022 Manual differential comment Franky (Bld) [Interp] SCANNED [facility] Comment on above: MONOCYTOSIS NOTED Blood monocytes/100 leukocyt esOrdered By: Dr. Christiansen on 08-12-2022 Monocytes/100 WBC (Bld) 8.7 % 0-10 [facility] Blood platelet mean volumeOr dered By: Dr. Christiansen on 08-12-2022 Platelet mean volume (Bld) [Entitic vol] 9.3 fL 6.2-12.0 [facility] Determination of erythrocyte mean corpuscular volume (MCV)Ordered By: Dr. Christiansen on 08-12-2022 MCV (RBC) [Entitic vol] 78.2 fL 81-99 [facility] Glucose Glucometer (BldC) [M ass/Vol]Ordered By: Dr. Urbina on 08-12-2022 Glucose [Mass/Vol] 212 mg/dL 74-106 [facility] Comment on above: MANAGEMENT OF PATIEN T CARE PER NURSING PROTOCOL Hematocrit Auto (Bld) [Volum e fraction]Ordered By: Dr. Christiansen on 02-01-2023 Hematocrit (Bld) [Volume fraction] 34.0 % 37-47 [facility] Ketones Test strip Ql (U)Ord ered By: Dr. Christiansen on 08-12-2022 Ketones Ql (U) 15 mg/dl Negative [facility] Laboratory - Chemistry and C hemistry - challengeOrdered By: Dr. Christiansen on 08-12-2022 ALP [Catalytic activity/Vol] 136 U/L 45-117 [facility] ALT [Catalytic activity/Vol] 13 U/L 13-56 [facility] CO2 [Moles/Vol] 23.0 mmol/L 21.0-32.0 [facility] Globulin (S) [Mass/Vol] 6.3 g/dL 2.2-4.2 [facility] Magnesium [Mass/Vol] 1.6 mg/dL 1.6-2.6 [facility] Comment on above: Slight Hemolysis, Re sult may be falsely increased. Urea nitrogen/Creatinine [Mass ratio] 7.2 mg/mg 10-20 [facility] Laboratory - Hematology and Cell countsOrdered By: Dr. Christiansen on 08-12-2022 Erythrocyte distribution width (RBC) [Entitic vol] 36.9 fL 35.1-43.9 [facility] Erythrocyte distribution width (RBC) [Ratio] 12.9 % 11.6-14.6 [facility] Immature granulocytes/100 WBC (Bld) 1.000 % 0.0-0.9 [facility] Comment on above: IG% - Immature Granu locytes (promyelocytes, myelocytes and metamyelocytes) > 1% indicates that a LEFT SHIFT is Present. MCH (RBC) [Entitic mass] 26.2 pg 27.0-32.0 [facility] Nucleated RBC/100 WBC (Bld) [Ratio] 0 % 0-5 [facility] MCHC Auto (RBC) [Mass/Vol]Or dered By: Dr. Christiansen on 08-12-2022 MCHC (RBC) [Mass/Vol] 33.5 g/dL 32-36 [facility] Mucus LM Ql (Urine sed)Order ed By: Dr. Christiansen on 08-12-2022 Mucus Ql (Urine sed) 0 SEEN /hpf [facility] Nitrite Test strip Ql (U)Ord ered By: Dr. Christiansen on 08-12-2022 Nitrite Ql (U) Negative Negative [facility] No Panel InformationOrdered By: Dr. Christiansen on 08-12-2022 Estimated Creatinine Clearance Calc 69.38 ml/min [facility] Estimated GFR (MDRD) Amer 74 mL/min >60 [facility] Comment on above: GFR Calc Estimated GFR (MDRD) Non-Af Amer 61 mL/min >60 [facility] Comment on above: Non- GFR Calc Troponin I High Sensitivity 6 pg/mL 3.0-54.0 [facility] Comment on above: Please Note: New Catherine t Units and Gender Specific Reference Ranges. For more information see Policy Stat Procedure [place] High Sensitivity Troponin (TNIH) and attachments. Platelets bldOrdered By: Dr. Christiansen on 08-12-2022 Platelets (Bld) [#/Vol] 453 10*3/uL 150-450 [facility] Protein Test strip Ql (U)Ord ered By: Dr. Christiansen on 08-12-2022 Protein Ql (U) 100 mg/dl Negative [facility] Review by pathologistOrdered By: Dr. Christiansen on 08-12-2022 Pathologist review Franky (Unsp spec) [Interp] Zahraa waite [facility] Pathologist review Franky (Unsp spec) [Interp] Reviewed [facility] Comment on above: Previous reported re sult: Zahraa waite Edited by: RGOOD on 08/14/22:0949Neutrophilic leukocytosis.Microcytic RBCs.Clinical correlation suggested.Franki Glez D.O. 08/14/22 AMENDED REPORT 08/14/22 0949 PATH REV previously reported as: Zahraa waite Serum or plasma acetone hussein urement (mass/volume)Ordered By: Dr. Christiansen on 08-12-2022 Acetone [Mass/Vol] Negative NEG [facility] Serum or plasma albumin hussein urement (mass/volume)Ordered By: Dr. Christiansen on 08-12-2022 Albumin [Mass/Vol] 2.9 g/dL 3.2-5.0 [facility] Serum or plasma albumin/glob ulin mass ratioOrdered By: Dr. Christiansen on 08-12-2022 Albumin/Globulin [Mass ratio] 0.5 {ratio} 0.9-2.4 [facility] Serum or plasma calcium hussein urement (mass/volume)Ordered By: Dr. Christiansen on 08-12-2022 Calcium [Mass/Vol] 9.6 mg/dL 8.5-10.1 [facility] Serum or plasma creatinine m easurement (mass/volume)Ordered By: Dr. Christiansen on 08-12-2022 Creatinine [Mass/Vol] 1.11 mg/dL 0.55-1.02 [facility] Comment on above: The validity of the calculated GFR & GFRAA in patients over 70 years has not been determined. Clinical correlation is essential. Serum or plasma urea nitroge n measurement (mass/volume)Ordered By: Dr. Christiansen on 08-12-2022 Urea nitrogen [Mass/Vol] 8 mg/dL 7-18 [facility] Squamous epithelial cells de tection in urine sediment by light microscopyOrdered By: Dr. Christiansen on 08-12-2022 Epithelial cells.squamous LM Ql (Urine sed) 0-5 SEEN /hpf 5-10 [facility] Thin prep Papanicolaou smear with manual screeningOrdered By: Dr. Christiansen on 08-12-2022 Thin prep Papanicolaou smear with manual screening 20 U/L 15-37 [facility] Comment on above: Slight Hemolysis, Re sult may be falsely increased. Thin prep Papanicolaou smear with manual screening 12 5-15 [facility] Urine blood detectionOrdered By: Dr. Christiansen on 08-12-2022 RBC Ql (U) 150 /ul Negative [facility] RBC Ql (U) 0 SEEN /hpf 0-5 [facility] Urine clarityOrdered By: Dr. Christiansen on 08-12-2022 Clarity (U) Clear Clear [facility] Urine color determinationOrd ered By: Dr. Christiansen on 08-12-2022 Color (U) Yellow Yellow [facility] Urine glucose detectionOrder ed By: Dr. Christiansen on 08-12-2022 Glucose Ql (U) 50 mg/dl Normal [facility] Urine leukocyte esterase det ection by dipstickOrdered By: Dr. Christiansen on 08-12-2022 Leukocyte esterase Test strip Ql (U) 100 /ul Negative [facility] Urine pHOrdered By: Dr. Ethan arriola on 08-12-2022 pH (U) 6.0 [pH] 5.0 - 8.0 [facility] Urine sediment bacteria coun t by microscopy (number/high power field)Ordered By: Dr. Christiansen on 08-12-2022 Bacteria LM.HPF (Urine sed) [#/Area] 0 /[HPF] None Seen [facility] Urine specific gravity measu rementOrdered By: Dr. Christiansen on 08-12-2022 Specific gravity (U) [Rel density] 1.010 1.002-1.030 [facility] Urobilinogen Auto test strip Ql (U)Ordered By: Dr. Christiansen on 08-12-2022 Urobilinogen Ql (U) Normal mg/dl Normal [facility] Acid fast bacilli (AFB) cult ureOrdered By: Dr. Matias on 08-09-2022 Mycobacterium sp identified Org specific cx Nom (Unsp spec) [facility] Thin prep Papanicolaou smear with manual screeningOrdered By: Dr. Matias on 08-09-2022 Thin prep Papanicolaou smear with manual screening [facility] Absolute lymphocyte countOrd ered By: Dr. Rao on 06-29-2022 Lymphocytes Auto (Unsp spec) [#/Vol] 2.81 10*3/uL 0.83-4.51 [facility] Basophil percentageOrdered B y: Dr. Rao on 06-29-2022 Basophils/100 WBC (Bld) 0.7 % 0-1 [facility] Chloride [Moles/Vol] 105 mmol/L 98-107 [facility] Eosinophils/100 WBC (Bld) 1.3 % 0-5 [facility] Glucose [Mass/Vol] 192 mg/dL 74-106 [facility] Comment on above: Fasting Glucose resu lt greater than or equal to 126 mg/dL suggests DIABETES MELLITUS per A.D.A. criteria. Neutrophils (Bld) [#/Vol] 4.2 10*3/uL 2.0-7.7 [facility] Neutrophils/100 WBC (Bld) 51.1 % 47-70 [facility] Potassium [Moles/Vol] 3.9 mmol/L 3.5-5.1 [facility] Sodium [Moles/Vol] 136 mmol/L 136-145 [facility] WBC (Bld) [#/Vol] 8.2 10*3/uL 4.4-11.0 [facility] Blood erythrocytes count (nu mber/volume)Ordered By: Dr. Rao on 06-29-2022 RBC (Bld) [#/Vol] 4.46 10*6/uL 4.2-5.4 [facility] Blood hemoglobin measurement (mass/volume)Ordered By: Dr. Rao on 06-29-2022 Hemoglobin (Bld) [Mass/Vol] 11.7 g/dL 12.0-15.0 [facility] Blood lymphocytes/100 leukoc ytesOrdered By: Dr. Rao on 06-29-2022 Lymphocytes/100 WBC (Bld) 34.3 % 19-41 [facility] Blood monocytes/100 leukocyt esOrdered By: Dr. Rao on 06-29-2022 Monocytes/100 WBC (Bld) 9.9 % 0-10 [facility] Blood platelet mean volumeOr dered By: Dr. Rao on 06-29-2022 Platelet mean volume (Bld) [Entitic vol] 9.1 fL 6.2-12.0 [facility] Determination of erythrocyte mean corpuscular volume (MCV)Ordered By: Dr. Rao on 06-29-2022 MCV (RBC) [Entitic vol] 81.8 fL 81-99 [facility] Glucose Glucometer (BldC) [M ass/Vol]Ordered By: Dr. Lr on 06-29-2022 Glucose [Mass/Vol] 251 mg/dL 74-106 [facility] Comment on above: MANAGEMENT OF PATIEN T CARE PER NURSING PROTOCOL Hematocrit Auto (Bld) [Volum e fraction]Ordered By: Dr. Rao on 06-29-2022 Hematocrit (Bld) [Volume fraction] 36.5 % 37-47 [facility] - Chemistry and C hemistry - challengeOrdered By: Dr. Rao on 06-29-2022 CO2 [Moles/Vol] 24.0 mmol/L 21.0-32.0 [facility] Urea nitrogen/Creatinine [Mass ratio] 18.4 mg/mg 10-20 [facility] - Hematology and Cell countsOrdered By: Dr. Rao on 06-29-2022 Erythrocyte distribution width (RBC) [Entitic vol] 41.2 fL 35.1-43.9 [facility] Erythrocyte distribution width (RBC) [Ratio] 14.1 % 11.6-14.6 [facility] Immature granulocytes/100 WBC (Bld) 2.700 % 0.0-0.9 [facility] Comment on above: IG% - Immature Granu locytes (promyelocytes, myelocytes and metamyelocytes) > 1% indicates that a LEFT SHIFT is Present. MCH (RBC) [Entitic mass] 26.2 pg 27.0-32.0 [facility] Nucleated RBC/100 WBC (Bld) [Ratio] 0.2 % 0-5 [facility] - Microbiology an d Antimicrobial susceptibilityOrdered By: Dr. Hinson on 06-29-2022 Bacteria identified Cx Nom (Bld) No growth in 5 days. [facility] MCHC Auto (RBC) [Mass/Vol]Or dered By: Dr. Rao on 06-29-2022 MCHC (RBC) [Mass/Vol] 32.1 g/dL 32-36 [facility] No Panel InformationOrdered By: Dr. Rao on 06-29-2022 Estimated Creatinine Clearance Calc 108.46 ml/min [facility] Estimated GFR (MDRD) Amer 125 mL/min >60 [facility] Comment on above: GFR Calc Estimated GFR (MDRD) Non-Af Amer 103 mL/min >60 [facility] Comment on above: Non- GFR Calc Platelets bldOrdered By: Dr. Rao on 06-29-2022 Platelets (Bld) [#/Vol] 363 10*3/uL 150-450 [facility] Serum or plasma calcium hussein urement (mass/volume)Ordered By: Dr. Rao on 06-29-2022 Calcium [Mass/Vol] 8.4 mg/dL 8.5-10.1 [facility] Serum or plasma creatinine m easurement (mass/volume)Ordered By: Dr. Rao on 06-29-2022 Creatinine [Mass/Vol] 0.71 mg/dL 0.55-1.02 [facility] Comment on above: The validity of the calculated GFR & GFRAA in patients over 70 years has not been determined. Clinical correlation is essential. Serum or plasma urea nitroge n measurement (mass/volume)Ordered By: Dr. Rao on 06-29-2022 Urea nitrogen [Mass/Vol] 13 mg/dL - [facility] Thin prep Papanicolaou smear with manual screeningOrdered By: Dr. Rao on 06-29-2022 Thin prep Papanicolaou smear with manual screening 7 - [facility] Vancomycin troughOrdered By: Dr. Rao on 06-28-2022 Vancomycin trough [Mass/Vol] 15.6 ug/mL 5.0-15.0 [facility] Comment on above: VANCOMYCIN STANDARED DRUG THERAPY TROUGH LEVEL: 5.0 - 15.0 mg/L VANCOMYCIN HIGH INTENSITY THERAPY TROUGH LEVEL: 15.0 - 20.0 mg/L High Intensity therapy recommended for serious lifethreatening infections include:- Bchxhrzamy-Odqkjkczrwdx-Rvslkypew (Ventilator/Healtcare Associated)-Sepsis PLEASE CONTACT PHARMACY SERVICES (#3112) FOR INTERPRETATIONOF RESULTS. Bacteria identified Cx Nom ( Wound)Ordered By: Dr. Matias on 06-26-2022 Wound Culture Streptococcus agalactiae (B) [facility] Culture, urineOrdered By: Dr Marine Hinson on 06-26-2022 Bacteria identified Cx Nom (U) Culture exhibits no growth. [facility] - Chemistry and C hemistry - challengeOrdered By: Dr. Morton on 06-26-2022 HCG ( test) Ql (U) Negative [facility] Comment on above: Very dilute urine sp ecimens, as indicated by a low specificgravity, may not contain small business representative levels of hCG. If is still suspected, a first morning urinespecimen should be collected 48 hours later and tested. Absolute lymphocyte counton 06-25-2022 Lymphocytes Auto (Unsp spec) [#/Vol] 3.27 10*3/uL 0.83-4.51 [facility] Work Phone: Basophil percentageon 2021 Basophils/100 WBC (Bld) 0.7 % 0-1 [facility] Work Phone: Chloride [Moles/Vol] 104 mmol/L 98-107 [facility] Work Phone: Eosinophils/100 WBC (Bld) 1.2 % 0-5 [facility] Work Phone: Glucose [Mass/Vol] 261 mg/dL 74-106 [facility] Work Phone: Comment on above: Glucose result great er than or equal to 200 mg/dLsuggests DIABETES MELLITUS per A.D.A. criteria. Neutrophils (Bld) [#/Vol] 4.8 10*3/uL 2.0-7.7 [facility] [facility] Neutrophils/100 WBC (Bld) 53.1 % 47-70 [facility] Work Phone: Potassium [Moles/Vol] 4.3 mmol/L 3.5-5.1 [facility] Work Phone: Sodium [Moles/Vol] 135 mmol/L 136-145 [facility] Work Phone: WBC (Bld) [#/Vol] 9.0 10*3/uL 4.4-11.0 [facility] Work Phone: Blood erythrocytes count (nu mber/volume)on 06-25-2022 RBC (Bld) [#/Vol] 4.62 10*6/uL 4.2-5.4 [facility] Work Phone: Blood hemoglobin measurement (mass/volume)on 06-25-2022 Hemoglobin (Bld) [Mass/Vol] 12.1 g/dL 12.0-15.0 [facility] Work Phone: Blood lymphocytes/100 leukoc yteson 06-25-2022 Lymphocytes/100 WBC (Bld) 36.4 % 19-41 [facility] Work Phone: Blood monocytes/100 leukocyt eson 06-25-2022 Monocytes/100 WBC (Bld) 7.0 % 0-10 [facility] Work Phone: Blood platelet mean volumeon 06-25-2022 Platelet mean volume (Bld) [Entitic vol] 9.5 fL 6.2-12.0 [facility] Work Phone: [phone] Determination of erythrocyte mean corpuscular volume (MCV)on 06-25-2022 MCV (RBC) [Entitic vol] 82.0 fL 81-99 [facility] Work Phone: [phone] Glucose Glucometer (BldC) [M ass/Vol]on 06-25-2022 Glucose [Mass/Vol] 263 mg/dL 74-106 [facility] Work Phone: [phone] Comment on above: MANAGEMENT OF PATIEN T CARE PER NURSING PROTOCOL Hematocrit Auto (Bld) [Volum e fraction]on 06-25-2022 Hematocrit (Bld) [Volume fraction] 37.9 % 37-47 [facility] Work Phone: [phone] Laboratory - Chemistry and C hemistry - challengeon 06-25-2022 CO2 [Moles/Vol] 24.0 mmol/L 21.0-32.0 [facility] Work Phone: [phone] Urea nitrogen/Creatinine [Mass ratio] 13.1 mg/mg 10-20 [facility] Work Phone: [phone] Laboratory - Hematology and Cell countson 06-25-2022 Erythrocyte distribution width (RBC) [Entitic vol] 41.4 fL 35.1-43.9 [facility] Work Phone: [phone] Erythrocyte distribution width (RBC) [Ratio] 14.1 % 11.6-14.6 [facility] Work Phone: [phone] Immature granulocytes/100 WBC (Bld) 1.600 % 0.0-0.9 [facility] Work Phone: [phone] Comment on above: IG% - Immature Granu locytes (promyelocytes, myelocytes and metamyelocytes) > 1% indicates that a LEFT SHIFT is Present. MCH (RBC) [Entitic mass] 26.2 pg 27.0-32.0 [facility] Work Phone: [phone] Nucleated RBC/100 WBC (Bld) [Ratio] 0 % 0-5 [facility] Work Phone: [phone] MCHC Auto (RBC) [Mass/Vol]on 06-25-2022 MCHC (RBC) [Mass/Vol] 31.9 g/dL 32-36 [facility] Work Phone: No Panel Informationon 06-25 Estimated Creatinine Clearance Calc 101.33 ml/min [facility] Work Phone: Estimated GFR (MDRD) Amer 114 mL/min >60 [facility] Work Phone: Comment on above: GFR Calc Estimated GFR (MDRD) Non-Af Amer 95 mL/min >60 [facility] Work Phone: Comment on above: Non- GFR Calc Platelets bldon 06-25-2022 Platelets (Bld) [#/Vol] 353 10*3/uL 150-450 [facility] Work Phone: Serum or plasma calcium hussein urement (mass/volume)on 06-25-2022 Calcium [Mass/Vol] 8.6 mg/dL 8.5-10.1 [facility] Work Phone: Serum or plasma creatinine m easurement (mass/volume)on 06-25-2022 Creatinine [Mass/Vol] 0.76 mg/dL 0.55-1.02 [facility] Work Phone: Comment on above: The validity of the calculated GFR & GFRAA in patients over 70 years has not been determined. Clinical correlation is essential. Serum or plasma urea nitroge n measurement (mass/volume)on 06-25-2022 Urea nitrogen [Mass/Vol] 10 mg/dL 7-18 [facility] Work Phone: [phone] Thin prep Papanicolaou smear with manual screeningon 06-25-2022 Thin prep Papanicolaou smear with manual screening 7 5-15 [facility] Work Phone: [phone] Absolute lymphocyte counton 06-24-2022 Lymphocytes Auto (Unsp spec) [#/Vol] 3.15 10*3/uL 0.83-4.51 [facility] Work Phone: [phone] Basophil percentageOrdered B y: Dr. Hinson on 06-24-2022 Lactate [Moles/Vol] 3.0 mmol/L 0.4-2.0 [facility] Comment on above: Critical Result(s) C alled at: 18:06:09 06/24/2022 by: LUIS E VALENZUELA.FERNANDO JANG4 RN MS-3 Results read back by same. Basophil percentage 0 SEEN /hpf 0-5 [facility] Bilirubin [Mass/Vol] 0.30 mg/dL 0.20-1.00 [facility] Comment on above: For patients on eltr ombopag therapy, use of Dimension [place] TBIL is not recommended. Protein [Mass/Vol] 8.0 g/dL 6.4-8.2 [facility] Basophil percentageon 2021 Basophils/100 WBC (Bld) 0.5 % 0-1 [facility] Work Phone: Chloride [Moles/Vol] 104 mmol/L 98-107 [facility] Work Phone: Eosinophils/100 WBC (Bld) 0.7 % 0-5 [facility] Work Phone: Glucose [Mass/Vol] 318 mg/dL 74-106 [facility] Work Phone: Comment on above: Glucose result great er than or equal to 200 mg/dLsuggests DIABETES MELLITUS per A.D.A. criteria. Lactate [Moles/Vol] 4.8 mmol/L 0.4-2.0 [facility] Work Phone: Comment on above: Critical Result(s) C alled at: 13:11:31 06/24/2022 by: Gayathri Edmond. Results read back by same. Neutrophils (Bld) [#/Vol] 5.1 10*3/uL 2.0-7.7 [facility] Work Phone: Neutrophils/100 WBC (Bld) 56.2 % 47-70 [facility] Work Phone: Potassium [Moles/Vol] 3.9 mmol/L 3.5-5.1 [facility] Work Phone: Sodium [Moles/Vol] 138 mmol/L 136-145 [facility] Work Phone: WBC (Bld) [#/Vol] 9.1 10*3/uL 4.4-11.0 [facility] Work Phone: Bilirubin Test strip Ql (U)O rdered By: Dr. Hinson on 06-24-2022 Bilirubin Ql (U) Negative Negative [facility] Blood erythrocytes count (nu mber/volume)on 06-24-2022 RBC (Bld) [#/Vol] 4.73 10*6/uL 4.2-5.4 [facility] Work Phone: [phone] Blood hemoglobin measurement (mass/volume)on 06-24-2022 Hemoglobin (Bld) [Mass/Vol] 12.8 g/dL 12.0-15.0 [facility] Work Phone: Blood lymphocytes/100 leukoc yteson 06-24-2022 Lymphocytes/100 WBC (Bld) 34.6 % 19-41 [facility] Work Phone: Blood monocytes/100 leukocyt eson 06-24-2022 Monocytes/100 WBC (Bld) 6.8 % 0-10 [facility] Work Phone: Blood platelet mean volumeon 06-24-2022 Platelet mean volume (Bld) [Entitic vol] 9.3 fL 6.2-12.0 [facility] Work Phone: [phone] Determination of erythrocyte mean corpuscular volume (MCV)on 06-24-2022 MCV (RBC) [Entitic vol] 81.2 fL 81-99 [facility] Work Phone: Gram stain for investigation of transfusion reactionOrdered By: Dr. Matias on 06-24-2022 Microscopic observation Gram stain Nom (Unsp spec) [facility] Hematocrit Auto (Bld) [Volum e fraction]on 06-24-2022 Hematocrit (Bld) [Volume fraction] 38.4 % 37-47 [facility] Work Phone: [phone] Ketones Test strip Ql (U)Ord ered By: Dr. Hinson on 06-24-2022 Ketones Ql (U) 15 mg/dl Negative [facility] Laboratory - Chemistry and C hemistry - challengeOrdered By: Dr. Hinson on 06-24-2022 ALP [Catalytic activity/Vol] 76 U/L 45-117 [facility] ALT [Catalytic activity/Vol] 22 U/L 13-56 [facility] Globulin (S) [Mass/Vol] 5.2 g/dL 2.2-4.2 [facility] Laboratory - Chemistry and C hemistry - challengeon 06-24-2022 CO2 [Moles/Vol] 28.0 mmol/L 21.0-32.0 [facility] Work Phone: Urea nitrogen/Creatinine [Mass ratio] 13.8 mg/mg 10-20 [facility] Work Phone: Laboratory - Hematology and Cell countson 06-24-2022 Erythrocyte distribution width (RBC) [Entitic vol] 41.3 fL 35.1-43.9 [facility] Work Phone: Erythrocyte distribution width (RBC) [Ratio] 14.2 % 11.6-14.6 [facility] Work Phone: Immature granulocytes/100 WBC (Bld) 1.200 % 0.0-0.9 [facility] Work Phone: Comment on above: IG% - Immature Granu locytes (promyelocytes, myelocytes and metamyelocytes) > 1% indicates that a LEFT SHIFT is Present. MCH (RBC) [Entitic mass] 27.1 pg 27.0-32.0 [facility] Work Phone: Nucleated RBC/100 WBC (Bld) [Ratio] 0 % 0-5 [facility] Work Phone: MCHC Auto (RBC) [Mass/Vol]on 06-24-2022 MCHC (RBC) [Mass/Vol] 33.3 g/dL 32-36 [facility] Work Phone: Mucus LM Ql (Urine sed)Order ed By: Dr. Hinson on 06-24-2022 Mucus Ql (Urine sed) 0 SEEN /hpf [facility] Nitrite Test strip Ql (U)Ord ered By: Dr. Hinson on 06-24-2022 Nitrite Ql (U) Negative Negative [facility] No Panel Informationon 06-24 Estimated Creatinine Clearance Calc 96.26 ml/min [facility] Work Phone: Estimated GFR (MDRD) Amer 109 mL/min >60 [facility] Work Phone: Comment on above: GFR Calc Estimated GFR (MDRD) Non-Af Amer 90 mL/min >60 [facility] Work Phone: Comment on above: Non- GFR Calc Platelets bldon 06-24-2022 Platelets (Bld) [#/Vol] 345 10*3/uL 150-450 [facility] Work Phone: Protein Test strip Ql (U)Ord ered By: Dr. Hinson on 06-24-2022 Protein Ql (U) 15 mg/dl Negative [facility] Serum or plasma albumin hussein urement (mass/volume)Ordered By: Dr. Hinson on 06-24-2022 Albumin [Mass/Vol] 2.8 g/dL 3.2-5.0 [facility] Serum or plasma albumin/glob ulin mass ratioOrdered By: Dr. Hinson on 06-24-2022 Albumin/Globulin [Mass ratio] 0.5 {ratio} 0.9-2.4 [facility] Serum or plasma calcium hussein urement (mass/volume)on 06-24-2022 Calcium [Mass/Vol] 9.1 mg/dL 8.5-10.1 [facility] Work Phone: Serum or plasma creatinine m easurement (mass/volume)on 06-24-2022 Creatinine [Mass/Vol] 0.80 mg/dL 0.55-1.02 [facility] Work Phone: Comment on above: The validity of the calculated GFR & GFRAA in patients over 70 years has not been determined. Clinical correlation is essential. Serum or plasma urea nitroge n measurement (mass/volume)on 06-24-2022 Urea nitrogen [Mass/Vol] 11 mg/dL 7-18 [facility] Work Phone: Squamous epithelial cells de tection in urine sediment by light microscopyOrdered By: Dr. Hinson on 06-24-2022 Epithelial cells.squamous LM Ql (Urine sed) 5-10 SEEN /hpf 5-10 [facility] Thin prep Papanicolaou smear with manual screeningOrdered By: Dr. Hinson on 06-24-2022 Thin prep Papanicolaou smear with manual screening 10 U/L 15-37 [facility] Thin prep Papanicolaou smear with manual screeningon 06-24-2022 Thin prep Papanicolaou smear with manual screening 6 5-15 [facility] Work Phone: Urine blood detectionOrdered By: Dr. Hinson on 06-24-2022 RBC Ql (U) 25 /ul Negative [facility] RBC Ql (U) 10-25 SEEN /hpf 0-5 [facility] Urine clarityOrdered By: Dr. Hinson on 06-24-2022 Clarity (U) Sl. Cloudy Clear [facility] Urine color determinationOrd ered By: Dr. Hinson on 06-24-2022 Color (U) Yellow Yellow [facility] Urine glucose detectionOrder ed By: Dr. Hinson on 06-24-2022 Glucose Ql (U) 1000 mg/dl Normal [facility] Urine leukocyte esterase det ection by dipstickOrdered By: Dr. Hinson on 06-24-2022 Leukocyte esterase Test strip Ql (U) Negative Negative [facility] Urine pHOrdered By: Dr. Vonda aden on 06-24-2022 pH (U) 5.0 [pH] 5.0 - 8.0 [facility] Urine sediment bacteria coun t by microscopy (number/high power field)Ordered By: Dr. Hinson on 06-24-2022 Bacteria LM.HPF (Urine sed) [#/Area] RARE /hpf None Seen [facility] Urine specific gravity measu rementOrdered By: Dr. Hinson on 06-24-2022 Specific gravity (U) [Rel density] 1.025 1.002-1.030 [facility] Urobilinogen Auto test strip Ql (U)Ordered By: Dr. Hinson on 06-24-2022 Urobilinogen Ql (U) Normal mg/dl Normal [facility] Whole blood hemoglobin A1c/t otal hemoglobin ratio (mass fraction)Ordered By: Dr. Rao on 06-24-2022 HbA1c (Bld) [Mass fraction] 10.6 % 3.8-5.6 [facility] Comment on above: Normal < 5.7 % Predi abetic 5.7 - 6.4 % Diabetic >or= 6.5 % Please note range changes. No Panel InformationOrdered By: Dr. Matias on 06-23-2022 Methicillin-Resist S.aureus DNA PCR Positive Negative [facility] Staphylococcus aureus DNA de tection by probe and target amplification methodOrdered By: Dr. Matias on 06-23-2022 S. aureus DNA REBECCA+probe Ql (Unsp spec) Positive Negative [facility] Absolute lymphocyte countOrd ered By: Dr. Matias on 05-07-2022 Lymphocytes Auto (Unsp spec) [#/Vol] 0.99 10*3/uL 0.83-4.51 [facility] Comment on above: Previous reported re sult: 5.07 X10^3/uLEdited by: BHUPINDER on 05/07/22:1437 AMENDED REPORT 05/07/221436 Absolute Lymph previously reported as: 5.07 H X10^3/uL Basophil percentageOrdered B y: Dr. Matias on 05-07-[address] TECH [facility] Comment on above: Previous reported re sult: 43.3 %Edited by: BHUPINDER on 05/07/22:1430 AMENDED REPORT 05/07/22 143 NEUT% previously reported as: 43.3 L % Previous reported re sult: 3.7 %Edited by: BHUPINDER on 05/07/22:1430 AMENDED REPORT 05/07/221429 EO% previously reported as: 3.7 % Previous reported re sult: 0.6 %Edited by: BHUPINDER on 05/07/22:1430 AMENDED REPORT 10/27/22 1430 BASO% previously reported as: 0.6 % Bilirubin [Mass/Vol] 0.20 mg/dL 0.20-1.00 [facility] Comment on above: For patients on eltr ombopag therapy, use of Dimension [place] TBIL is not recommended. Chloride [Moles/Vol] 101 mmol/L 98-107 [facility] Glucose [Mass/Vol] 207 mg/dL 74-106 [facility] Comment on above: Glucose result great er than or equal to 200 mg/dLsuggests DIABETES MELLITUS per A.D.A. criteria. Neutrophils (Bld) [#/Vol] 8.8 10*3/uL 2.0-7.7 [facility] Comment on above: Previous reported re sult: 4.8 X10^3/uLEdited by: BHUPINDER on 05/07/22:1436 AMENDED REPORT 05/07/22 1436 Absolute Neut previously reported as: 4.8 X10^3/uL Potassium [Moles/Vol] 4.0 mmol/L 3.5-5.1 [facility] Protein [Mass/Vol] 8.4 g/dL 6.4-8.2 [facility] Sodium [Moles/Vol] 134 mmol/L 136-145 [facility] WBC (Bld) [#/Vol] 11.1 10*3/uL 4.4-11.0 [facility] Blood band neutrophil count as percentage of total leukocytesOrdered By: Dr. Matias on 05-07-2022 Band form neutrophils/100 WBC (Bld) 6 % 0-5 [facility] Blood erythrocytes count (nu mber/volume)Ordered By: Dr. Matias on 05-07-2022 RBC (Bld) [#/Vol] 4.81 10*6/uL 4.2-5.4 [facility] Blood hemoglobin measurement (mass/volume)Ordered By: Dr. Matias on 05-07-2022 Hemoglobin (Bld) [Mass/Vol] 13.0 g/dL 12.0-15.0 [facility] Blood lymphocytes/100 leukoc ytesOrdered By: Dr. Matias on 05-07-2022 Lymphocytes/100 WBC (Bld) CT TECH [facility] Comment on above: Previous reported re sult: 45.7 %Edited by: BHUPINDER on 05/07/22:1430 AMENDED REPORT 05/07/22 143 LY% previously reported as: 45.7 H % Lymphocytes/100 WBC (Bld) 9 % 19-41 [facility] Blood monocytes/100 leukocyt esOrdered By: Dr. Matias on 05-07-2022 Monocytes/100 WBC (Bld) CT TECH [facility] Comment on above: Previous reported re sult: 5.2 %Edited by: BHUPINDER on 05/07/22:1430 AMENDED REPORT 05/07/221429 MONO% previously reported as: 5.2 % Monocytes/100 WBC (Bld) 12 % 0-10 [facility] Blood platelet mean volumeOr dered By: Dr. Matias on 05-07-2022 Platelet mean volume (Bld) [Entitic vol] 9.0 fL 6.2-12.0 [facility] Blood platelet morphology de termination (nominal result)Ordered By: Dr. Matias on 05-07-2022 Platelet morphology finding Nom (Bld) LARGE [facility] Blood segmented neutrophils/ [address]: [address] Matias on 05-07-2022 Segmented neutrophils/100 WBC (Bld) 73 % 47-70 [facility] Determination of erythrocyte mean corpuscular volume (MCV)Ordered By: Dr. Matias on 05-07-2022 MCV (RBC) [Entitic vol] 81.3 fL 81-99 [facility] Hematocrit Auto (Bld) [Volum e fraction]Ordered By: Dr. Matias on 05-07-2022 Hematocrit (Bld) [Volume fraction] 39.1 % 37-47 [facility] Laboratory - Chemistry and C hemistry - challengeOrdered By: Dr. Matias on 05-07-2022 ALP [Catalytic activity/Vol] 76 U/L 45-117 [facility] ALT [Catalytic activity/Vol] 23 U/L 13-56 [facility] CO2 [Moles/Vol] 25.0 mmol/L 21.0-32.0 [facility] Globulin (S) [Mass/Vol] 5.0 g/dL 2.2-4.2 [facility] Urea nitrogen/Creatinine [Mass ratio] 17.4 mg/mg 10- [facility] Laboratory - Hematology and Cell countsOrdered By: Dr. Matias on 05-07-2022 Erythrocyte distribution width (RBC) [Entitic vol] 41.1 fL 35.1-43.9 [facility] Erythrocyte distribution width (RBC) [Ratio] 14.0 % 11.6-14.6 [facility] MCH (RBC) [Entitic mass] 27.0 pg 27.0-32.0 [facility] Nucleated RBC/100 WBC (Bld) [Ratio] 0 % 0-5 [facility] MCHC Auto (RBC) [Mass/Vol]Or dered By: Dr. Matias on 05-07-2022 MCHC (RBC) [Mass/Vol] 33.2 g/dL 32-36 [facility] No Panel InformationOrdered By: Dr. Matias on 05-07-2022 Atypical Lymphocytes RARE % [facility] Estimated GFR (MDRD) Amer 99 mL/min >60 [facility] Comment on above: GFR Calc Estimated GFR (MDRD) Non-Af Amer 82 mL/min >60 [facility] Comment on above: Non- GFR Calc Immature Granulocyte % (Auto) CT TECH [facility] Comment on above: Previous reported re sult: 1.500 %Edited by: BHUPINDER on 05/07/22:1431 AMENDED REPORT 05/07/22 1431 IM GRAN % previously reported as: 1.500 H % IG% - Immature Granulocytes (promyelocytes, myelocytes and metamyelocytes) > 1% indicates that a LEFT SHIFT is Present. Platelets bldOrdered By: Dr. Matias on 05-07-2022 Platelets (Bld) [#/Vol] 369 10*3/uL 150-450 [facility] RBC morphologyOrdered By: Dr Marine Matias on 05-07-2022 RBC morphology finding Nom (Bld) NORM C+C NORMAL NORM C&C [facility] Review by pathologiston 10-2 Pathologist review Franky (Unsp spec) [Interp] May foll [facility] Work Phone: Review by pathologistOrdered By: Dr. Matias on 05-07-2022 Pathologist review Franky (Unsp spec) [Interp] Reviewed [facility] Comment on above: Previous reported re sult: Zahraa waite Edited by: RGOOD on 05/08/22:1553Neutrophilic leukocytosis.Clinical correlation suggested.Franki Glez D.O. 05/08/22 AMENDED REPORT 05/08/22 1553 PATH REV previously reported as: Zahraa waite Serum or plasma albumin hussein urement (mass/volume)Ordered By: Dr. Matias on 05-07-2022 Albumin [Mass/Vol] 3.4 g/dL 3.2-5.0 [facility] Serum or plasma albumin/glob ulin mass ratioOrdered By: Dr. Matias on 05-07-2022 Albumin/Globulin [Mass ratio] 0.7 {ratio} 0.9-2.4 [facility] Serum or plasma calcium hussein urement (mass/volume)Ordered By: Dr. Matias on 05-07-2022 Calcium [Mass/Vol] 8.7 mg/dL 8.5-10.1 [facility] Serum or plasma creatinine m easurement (mass/volume)Ordered By: Dr. Matias on 05-07-2022 Creatinine [Mass/Vol] 0.86 mg/dL 0.55-1.02 [facility] Comment on above: The validity of the calculated GFR & GFRAA in patients over 70 years has not been determined. Clinical correlation is essential. Serum or plasma urea nitroge n measurement (mass/volume)Ordered By: Dr. Matias on 05-07-2022 Urea nitrogen [Mass/Vol] 15 mg/dL 7-18 [facility] Thin prep Papanicolaou smear with manual screeningOrdered By: Dr. Matias on 05-07-2022 Thin prep Papanicolaou smear with manual screening 10 U/L 15-37 [facility] Thin prep Papanicolaou smear with manual screening 8 5-15 [facility] Basophil percentageOrdered B y: [facility] on 04-20-2022 Chloride [Moles/Vol] 104 mmol/L 98-107 [facility] Glucose [Mass/Vol] 224 mg/dL 74-106 [facility] Comment on above: Glucose result great er than or equal to 200 mg/dLsuggests DIABETES MELLITUS per A.D.A. criteria. Potassium [Moles/Vol] 3.7 mmol/L 3.5-5.1 [facility] Sodium [Moles/Vol] 139 mmol/L 136-145 [facility] WBC (Bld) [#/Vol] 9.3 10*3/uL 4.4-11.0 [facility] Blood erythrocytes count (nu mber/volume)Ordered By: [facility] on 04-20-2022 RBC (Bld) [#/Vol] 3.93 10*6/uL 4.2-5.4 [facility] Blood hemoglobin measurement (mass/volume)Ordered By: [facility] on 04-20-2022 Hemoglobin (Bld) [Mass/Vol] 10.4 g/dL 12.0-15.0 [facility] Blood platelet mean volumeOr dered By: [facility] on 04-20-2022 Platelet mean volume (Bld) [Entitic vol] 9.6 fL 6.2-12.0 [facility] Determination of erythrocyte mean corpuscular volume (MCV)Ordered By: [facility] on 04-20-2022 MCV (RBC) [Entitic vol] 83.7 fL 81-99 [facility] Erythrocyte sedimentation ra teOrdered By: [facility] on 04-20-2022 ESR (Bld) [Velocity] 60 mm/h 0-30 [facility] Hematocrit Auto (Bld) [Volum e fraction]Ordered By: [facility] on 04-20-2022 Hematocrit (Bld) [Volume fraction] 32.9 % 37-47 [facility] Laboratory - Chemistry and C hemistry - challengeOrdered By: [facility] on 04-20-2022 CO2 [Moles/Vol] 28.0 mmol/L 21.0-32.0 [facility] Urea nitrogen/Creatinine [Mass ratio] 16.3 mg/mg 10-20 [facility] Laboratory - Hematology and Cell countsOrdered By: [facility] on 04-20-2022 Erythrocyte distribution width (RBC) [Entitic vol] 41.4 fL 35.1-43.9 [facility] Erythrocyte distribution width (RBC) [Ratio] 13.5 % 11.6-14.6 [facility] MCH (RBC) [Entitic mass] 26.5 pg 27.0-32.0 [facility] MCHC Auto (RBC) [Mass/Vol]Or dered By: [facility] on 04-20-2022 MCHC (RBC) [Mass/Vol] 31.6 g/dL 32-36 [facility] No Panel InformationOrdered By: [facility] on 04-20-2022 Estimated GFR (MDRD) Amer 147 mL/min >60 [facility] Comment on above: GFR Calc Estimated GFR (MDRD) Non-Af Amer 122 mL/min >60 [facility] Comment on above: Non- GFR Calc Platelets bldOrdered By: [facility] on 04-20-2022 Platelets (Bld) [#/Vol] 509 10*3/uL 150-450 [facility] Serum or plasma calcium hussein urement (mass/volume)Ordered By: [facility] on 04-20-2022 Calcium [Mass/Vol] 8.5 mg/dL 8.5-10.1 [facility] Serum or plasma creatinine m easurement (mass/volume)Ordered By: [facility] on 04-20-2022 Creatinine [Mass/Vol] 0.61 mg/dL 0.55-1.02 [facility] Comment on above: The validity of the calculated GFR & GFRAA in patients over 70 years has not been determined. Clinical correlation is essential. Serum or plasma urea nitroge n measurement (mass/volume)Ordered By: [facility] on 04-20-2022 Urea nitrogen [Mass/Vol] 10 mg/dL 7-18 [facility] Thin prep Papanicolaou smear with manual screeningOrdered By: [facility] on 04-20-2022 Thin prep Papanicolaou smear with manual screening 7 5-15 [facility] Vancomycin troughOrdered By: [facility] on 04-20-2022 Vancomycin trough [Mass/Vol] 7.2 ug/mL 5.0-15.0 [facility] Comment on above: VANCOMYCIN STANDARED DRUG THERAPY TROUGH LEVEL: 5.0 - 15.0 mg/L VANCOMYCIN HIGH INTENSITY THERAPY TROUGH LEVEL: 15.0 - 20.0 mg/L High Intensity therapy recommended for serious lifethreatening infections include:- Gflbjwlhbf-Vmzhdfsebatf-Kspemewdx (Ventilator/Healtcare Associated)-Sepsis PLEASE CONTACT PHARMACY SERVICES (#[id number]) FOR INTERPRETATIONOF RESULTS. Basophil percentageon 2021 Chloride [Moles/Vol] 103 mmol/L 98-107 [facility] Work Phone: [phone] Glucose [Mass/Vol] 188 mg/dL 74-106 [facility] Work Phone: [phone] Comment on above: Fasting Glucose resu lt greater than or equal to 126 mg/dL suggests DIABETES MELLITUS per A.D.A. criteria. Potassium [Moles/Vol] 4.3 mmol/L 3.5-5.1 [facility] Work Phone: [phone] Sodium [Moles/Vol] 137 mmol/L 136-145 [facility] Work Phone: [phone] WBC (Bld) [#/Vol] 10.0 10*3/uL 4.4-11.0 [facility] Work Phone: [phone] Blood erythrocytes count (nu mber/volume)on 04-13-2022 RBC (Bld) [#/Vol] 4.32 10*6/uL 4.2-5.4 [facility] Work Phone: [phone] Blood hemoglobin measurement (mass/volume)on 04-13-2022 Hemoglobin (Bld) [Mass/Vol] 11.5 g/dL 12.0-15.0 [facility] Work Phone: [phone] Blood platelet mean volumeon 04-13-2022 Platelet mean volume (Bld) [Entitic vol] 9.2 fL 6.2-12.0 [facility] Work Phone: [phone] Determination of erythrocyte mean corpuscular volume (MCV)on 04-13-2022 MCV (RBC) [Entitic vol] 84.7 fL 81-99 [facility] Work Phone: [phone] Erythrocyte sedimentation ra abeba 04-13-2022 ESR (Bld) [Velocity] 90 mm/h 0-[address] [facility] Work Phone: Hematocrit Auto (Bld) [Volum e fraction]on 04-13-2022 Hematocrit (Bld) [Volume fraction] 36.6 % 37-47 [facility] Work Phone: [phone] Laboratory - Chemistry and C hemistry - challengeon 04-13-2022 CO2 [Moles/Vol] 25.0 mmol/L 21.0-32.0 [facility] Work Phone: [phone] Urea nitrogen/Creatinine [Mass ratio] 18.8 mg/mg 10-20 [facility] Work Phone: [phone] Laboratory - Hematology and Cell countson 04-13-2022 Erythrocyte distribution width (RBC) [Entitic vol] 41.8 fL 35.1-43.9 [facility] Work Phone: [phone] Erythrocyte distribution width (RBC) [Ratio] 13.4 % 11.6-14.6 [facility] Work Phone: [phone] MCH (RBC) [Entitic mass] 26.6 pg 27.0-32.0 [facility] Work Phone: [phone] MCHC Auto (RBC) [Mass/Vol]on 04-13-2022 MCHC (RBC) [Mass/Vol] 31.4 g/dL 32-36 [facility] Work Phone: No Panel Informationon 04-13 Estimated GFR (MDRD) Amer 128 mL/min >60 [facility] Work Phone: Comment on above: GFR Calc Estimated GFR (MDRD) Non-Af Amer 106 mL/min >60 [facility] Work Phone: Comment on above: Non- GFR Calc Platelets bldon 04-13-2022 Platelets (Bld) [#/Vol] 609 10*3/uL 150-450 [facility] Work Phone: Serum or plasma calcium hussein urement (mass/volume)on 04-13-2022 Calcium [Mass/Vol] 9.4 mg/dL 8.5-10.1 [facility] Work Phone: Serum or plasma creatinine m easurement (mass/volume)on 04-13-2022 Creatinine [Mass/Vol] 0.69 mg/dL 0.55-1.02 [facility] Work Phone: Comment on above: The validity of the calculated GFR & GFRAA in patients over 70 years has not been determined. Clinical correlation is essential. Serum or plasma urea nitroge n measurement (mass/volume)on 04-13-2022 Urea nitrogen [Mass/Vol] 13 mg/dL 7-18 [facility] Work Phone: [phone] Thin prep Papanicolaou smear with manual screeningon 04-13-2022 Thin prep Papanicolaou smear with manual screening 9 5-15 [facility] Work Phone: Vancomycin troughon 04-13-20 22 Vancomycin trough [Mass/Vol] 19.3 ug/mL 5.0-15.0 [facility] Work Phone: Comment on above: VANCOMYCIN STANDARED DRUG THERAPY TROUGH LEVEL: 5.0 - 15.0 mg/L VANCOMYCIN HIGH INTENSITY THERAPY TROUGH LEVEL: 15.0 - 20.0 mg/L High Intensity therapy recommended for serious lifethreatening infections include:- Yanyjvaahd-Hbssxrjuxvzw-Awerowird (Ventilator/Healtcare Associated)-Sepsis PLEASE CONTACT PHARMACY SERVICES (#[id number]) FOR INTERPRETATIONOF RESULTS. Basophil percentageon 2021 Chloride [Moles/Vol] 100 mmol/L 98-107 [facility] Work Phone: Cholesterol [Mass/Vol] 143 mg/dL <200 [facility] Work Phone: Comment on above: <200 mg/dL Desirable 200-240 mg/dL Borderline >240 mg/dL High Risk Glucose [Mass/Vol] 217 mg/dL 74-106 [facility] Work Phone: Comment on above: Glucose result great er than or equal to 200 mg/dLsuggests DIABETES MELLITUS per A.D.A. criteria. Potassium [Moles/Vol] 3.7 mmol/L 3.5-5.1 [facility] Work Phone: [phone] Sodium [Moles/Vol] 137 mmol/L 136-145 [facility] Work Phone: [phone] Triglyceride [Mass/Vol] 170 mg/dL <199 [facility] Work Phone: [phone] Comment on above: The drugs N-Acetylcy steine and Metamizole may falsely depress this assay.Serum Triglycerides Reference Interval Normal <150 mg/dL Borderline high 150 - 199 mg/dL High 200 - 499 mg/dL Very High > or = 500 mg/dL WBC (Bld) [#/Vol] 9.1 10*3/uL 4.4-11.0 [facility] Work Phone: Blood erythrocytes count (nu mber/volume)on 04-10-2022 RBC (Bld) [#/Vol] 3.85 10*6/uL 4.2-5.4 [facility] Work Phone: [phone] Blood hemoglobin measurement (mass/volume)on 04-10-2022 Hemoglobin (Bld) [Mass/Vol] 10.2 g/dL 12.0-15.0 [facility] Work Phone: [phone] Blood platelet mean volumeon 04-10-2022 Platelet mean volume (Bld) [Entitic vol] 9.1 fL 6.2-12.0 [facility] Work Phone: [phone] Determination of erythrocyte mean corpuscular volume (MCV)on 04-10-2022 MCV (RBC) [Entitic vol] 82.6 fL 81-99 [facility] Work Phone: [phone] Erythrocyte sedimentation ra abeba 04-10-2022 ESR (Bld) [Velocity] 58 mm/h 0-30 [facility] Work Phone: [phone] Hematocrit Auto (Bld) [Volum e fraction]on 04-10-2022 Hematocrit (Bld) [Volume fraction] 31.8 % 37-47 [facility] Work Phone: Laboratory - Chemistry and C hemistry - challengeon 04-10-2022 CO2 [Moles/Vol] 32.0 mmol/L 21.0-32.0 [facility] Work Phone: [phone] Cobalamin (Vitamin B12) [Mass/Vol] 216 pg/mL 211-911 [facility] Work Phone: [phone] Urea nitrogen/Creatinine [Mass ratio] 22.7 mg/mg 10-20 [facility] Work Phone: [phone] Laboratory - Hematology and Cell countson 04-10-2022 Erythrocyte distribution width (RBC) [Entitic vol] 39.7 fL 35.1-43.9 [facility] Work Phone: [phone] Erythrocyte distribution width (RBC) [Ratio] 13.2 % 11.6-14.6 [facility] Work Phone: [phone] MCH (RBC) [Entitic mass] 26.5 pg 27.0-32.0 [facility] Work Phone: [phone] MCHC Auto (RBC) [Mass/Vol]on 04-10-2022 MCHC (RBC) [Mass/Vol] 32.1 g/dL 32-36 [facility] Work Phone: [phone] No Panel Informationon 04-10 Estimated GFR (MDRD) Amer 146 mL/min >60 [facility] Work Phone: [phone] Comment on above: GFR Calc Estimated GFR (MDRD) Non-Af Amer 120 mL/min >60 [facility] Work Phone: [phone] Comment on above: Non- GFR Calc Vitamin D 25-Hydroxy 18.5 ng/mL [facility] Work Phone: [phone] Comment on above: Vitamin D 25(OH) Sta tus Range Deficiency <20 ng/mL (50nmol/L) Insufficiency 20 - 30 ng/mL (50 - 75 nmol/L) Sufficiency 30 - 100 ng/mL (75 - 250 nmol/L) Toxicity >100 ng/mL (>250 nmol/L) Platelets bldon 04-10-2022 Platelets (Bld) [#/Vol] 540 10*3/uL 150-450 [facility] Work Phone: [phone] Serum or plasma calcium hussein urement (mass/volume)on 04-10-2022 Calcium [Mass/Vol] 8.9 mg/dL 8.5-10.1 [facility] Work Phone: Serum or plasma cholesterol in HDL measurement (mass/volume)on 04-10-2022 Cholesterol in HDL [Mass/Vol] 23 mg/dL >40 [facility] Work Phone: Comment on above: The drugs N-Acetylcy steine and Metamizole may falsely depress this assay. Reference Range HDL <40 mg/dL Low HDL Cholesterol HDL >or= 60 mg/dL High HDL Cholesterol Serum or plasma cholesterol in VLDL measurement (mass/volume)on 04-10-2022 Cholesterol in VLDL [Mass/Vol] 34 mg/dL 5-40 [facility] Work Phone: Serum or plasma creatinine m easurement (mass/volume)on 04-10-2022 Creatinine [Mass/Vol] 0.62 mg/dL 0.55-1.02 [facility] Work Phone: Comment on above: The validity of the calculated GFR & GFRAA in patients over 70 years has not been determined. Clinical correlation is essential. Serum or plasma low density lipoprotein (LDL) cholesterol measurement (mass/volume)on 04-10-2022 Cholesterol in LDL [Mass/Vol] 86 mg/dL 0-130 [facility] Work Phone: Serum or plasma transthyreti n measurement (mass/volume)on 04-10-2022 Prealbumin [Mass/Vol] 11.5 mg/dL 20.0-40.0 [facility] Work Phone: Serum or plasma urea nitroge n measurement (mass/volume)on 04-10-2022 Urea nitrogen [Mass/Vol] 14 mg/dL 7-18 [facility] Work Phone: Thin prep Papanicolaou smear with manual screeningon 04-10-2022 Thin prep Papanicolaou smear with manual screening 5 5-15 [facility] Work Phone: Absolute lymphocyte counton 04-09-2022 Lymphocytes Auto (Unsp spec) [#/Vol] 2.68 10*3/uL 0.83-4.51 [facility] Work Phone: Basophil percentageon 2021 Basophils/100 WBC (Bld) 0.8 % 0-1 [facility] Work Phone: Chloride [Moles/Vol] 102 mmol/L 98-107 [facility] Work Phone: Eosinophils/100 WBC (Bld) 3.2 % 0-5 [facility] Work Phone: Glucose [Mass/Vol] 190 mg/dL 74-106 [facility] Work Phone: Comment on above: Fasting Glucose resu lt greater than or equal to 126 mg/dL suggests DIABETES MELLITUS per A.D.A. criteria. Neutrophils (Bld) [#/Vol] 3.7 10*3/uL 2.0-7.7 [facility] Work Phone: Neutrophils/100 WBC (Bld) 49.3 % 47-70 [facility] Work Phone: Potassium [Moles/Vol] 3.6 mmol/L 3.5-5.1 [facility] Work Phone: Sodium [Moles/Vol] 138 mmol/L 136-145 [facility] Work Phone: WBC (Bld) [#/Vol] 7.5 10*3/uL 4.4-11.0 [facility] Work Phone: Blood erythrocytes count (nu mber/volume)on 04-09-2022 RBC (Bld) [#/Vol] 3.73 10*6/uL 4.2-5.4 [facility] Work Phone: Blood hemoglobin measurement (mass/volume)on 04-09-2022 Hemoglobin (Bld) [Mass/Vol] 9.8 g/dL 12.0-15.0 [facility] Work Phone: Blood lymphocytes/100 leukoc yteson 04-09-2022 Lymphocytes/100 WBC (Bld) 35.8 % 19-41 [facility] Work Phone: Blood monocytes/100 leukocyt eson 04-09-2022 Monocytes/100 WBC (Bld) 9.2 % 0-10 [facility] Work Phone: Blood platelet mean volumeon 04-09-2022 Platelet mean volume (Bld) [Entitic vol] 8.8 fL 6.2-12.0 [facility] Work Phone: [phone] Determination of erythrocyte mean corpuscular volume (MCV)on 04-09-2022 MCV (RBC) [Entitic vol] 81.8 fL 81-99 [facility] Work Phone: Glucose Glucometer (BldC) [M ass/Vol]on 04-09-2022 Glucose [Mass/Vol] 251 mg/dL 74-106 [facility] Work Phone: Comment on above: MANAGEMENT OF PATIEN T CARE PER NURSING PROTOCOL Glucose [Mass/Vol] 281 mg/dL 74-106 [facility] Work Phone: Comment on above: MANAGEMENT OF PATIEN T CARE PER NURSING PROTOCOL Hematocrit Auto (Bld) [Volum e fraction]on 04-09-2022 Hematocrit (Bld) [Volume fraction] 30.5 % 37-47 [facility] Work Phone: Laboratory - Chemistry and C hemistry - challengeon 04-09-2022 CO2 [Moles/Vol] 28.0 mmol/L 21.0-32.0 [facility] Work Phone: Urea nitrogen/Creatinine [Mass ratio] 17.2 mg/mg 10-20 [facility] Work Phone: [phone] Laboratory - Hematology and Cell countson 04-09-2022 Erythrocyte distribution width (RBC) [Entitic vol] 38.9 fL 35.1-43.9 [facility] Work Phone: [phone] Erythrocyte distribution width (RBC) [Ratio] 13.0 % 11.6-14.6 [facility] Work Phone: Immature granulocytes/100 WBC (Bld) 1.700 % 0.0-0.9 [facility] Work Phone: [phone] Comment on above: IG% - Immature Granu locytes (promyelocytes, myelocytes and metamyelocytes) > 1% indicates that a LEFT SHIFT is Present. MCH (RBC) [Entitic mass] 26.3 pg 27.0-32.0 [facility] Work Phone: Nucleated RBC/100 WBC (Bld) [Ratio] 0 % 0-5 [facility] Work Phone: [phone] MCHC Auto (RBC) [Mass/Vol]on 04-09-2022 MCHC (RBC) [Mass/Vol] 32.1 g/dL 32-36 [facility] Work Phone: No Panel Informationon 04-09 Estimated Creatinine Clearance Calc 120.32 ml/min [facility] Work Phone: [phone] Estimated GFR (MDRD) Amer 140 mL/min >60 [facility] Work Phone: Comment on above: GFR Calc Estimated GFR (MDRD) Non-Af Amer 116 mL/min >60 [facility] Work Phone: Comment on above: Non- GFR Calc Platelets bldon 04-09-2022 Platelets (Bld) [#/Vol] 478 10*3/uL 150-450 [facility] Work Phone: [phone] Serum or plasma calcium hussein urement (mass/volume)on 04-09-2022 Calcium [Mass/Vol] 8.7 mg/dL 8.5-10.1 [facility] Work Phone: [phone] Serum or plasma creatinine m easurement (mass/volume)on 04-09-2022 Creatinine [Mass/Vol] 0.64 mg/dL 0.55-1.02 [facility] Work Phone: [phone] Comment on above: The validity of the calculated GFR & GFRAA in patients over 70 years has not been determined. Clinical correlation is essential. Serum or plasma urea nitroge n measurement (mass/volume)on 04-09-2022 Urea nitrogen [Mass/Vol] 11 mg/dL 7-18 [facility] Work Phone: Thin prep Papanicolaou smear with manual screeningon 04-09-2022 Thin prep Papanicolaou smear with manual screening 8 5-15 [facility] Work Phone: [phone] Blood manual differential co mment interpretation (narrative result)on 04-08-2022 Manual differential comment Franky (Bld) [Interp] SCANNED [facility] Work Phone: [phone] Blood platelet adequacy dete ction by light microscopyon 04-08-2022 Platelets LM Ql (Bld) ADEQUATE ADEQ [facility] Work Phone: [phone] Vancomycin troughon 04-08-20 Vancomycin trough [Mass/Vol] 10.2 ug/mL 5.0-15.0 [facility] Work Phone: Comment on above: VANCOMYCIN STANDARED DRUG THERAPY TROUGH LEVEL: 5.0 - 15.0 mg/L VANCOMYCIN HIGH INTENSITY THERAPY TROUGH LEVEL: 15.0 - 20.0 mg/L High Intensity therapy recommended for serious lifethreatening infections include:- Kvbpmgnweu-Mdwzeqygwiur-Klefsisru (Ventilator/Healtcare Associated)-Sepsis PLEASE CONTACT PHARMACY SERVICES (#[id number]) FOR INTERPRETATIONOF RESULTS. Basophil percentageon 2021 Bilirubin [Mass/Vol] 0.70 mg/dL 0.20-1.00 [facility] Work Phone: Comment on above: For patients on eltr ombopag therapy, use of Dimension [place] TBIL is not recommended. Protein [Mass/Vol] 7.7 g/dL 6.4-8.2 [facility] Work Phone: [phone] Laboratory - Chemistry and C hemistry - challengeon 04-07-2022 ALP [Catalytic activity/Vol] 121 U/L 45-117 [facility] Work Phone: [phone] ALT [Catalytic activity/Vol] 9 U/L 13-56 [facility] Work Phone: [phone] Globulin (S) [Mass/Vol] 5.4 g/dL 2.2-4.2 [facility] Work Phone: [phone] Serum or plasma albumin hussein urement (mass/volume)on 04-07-2022 Albumin [Mass/Vol] 2.3 g/dL 3.2-5.0 [facility] Work Phone: Serum or plasma albumin/glob ulin mass ratioon 04-07-2022 Albumin/Globulin [Mass ratio] 0.4 {ratio} 0.9-2.4 [facility] Work Phone: Thin prep Papanicolaou smear with manual screeningon 04-07-2022 Thin prep Papanicolaou smear with manual screening 6 U/L 15-37 [facility] Work Phone: Absolute lymphocyte counton 04-06-2022 Lymphocytes Auto (Unsp spec) [#/Vol] 2.55 10*3/uL 0.83-4.51 [facility] Work Phone: Basophil percentageon 2021 Basophils/100 WBC (Bld) 0.2 % 0-1 [facility] Work Phone: Chloride [Moles/Vol] 94 mmol/L 98-107 [facility] Work Phone: Eosinophils/100 WBC (Bld) 0.0 % 0-5 [facility] Work Phone: Glucose [Mass/Vol] 396 mg/dL 74-106 [facility] Work Phone: Comment on above: Glucose result great er than or equal to 200 mg/dLsuggests DIABETES MELLITUS per A.D.A. criteria. Neutrophils (Bld) [#/Vol] 18.0 10*3/uL 2.0-7.7 [facility] Work Phone: Neutrophils/100 WBC (Bld) 80.1 % 47-70 [facility] Work Phone: Potassium [Moles/Vol] 3.8 mmol/L 3.5-5.1 [facility] Work Phone: Sodium [Moles/Vol] 130 mmol/L 136-145 [facility] Work Phone: WBC (Bld) [#/Vol] 22.4 10*3/uL 4.4-11.0 [facility] Work Phone: Beta hCG serum qualon 2021 Beta HCG ( test) Ql Negative [facility] Work Phone: Blood erythrocytes count (nu mber/volume)on 04-06-2022 RBC (Bld) [#/Vol] 4.48 10*6/uL 4.2-5.4 [facility] Work Phone: Blood hemoglobin measurement (mass/volume)on 04-06-2022 Hemoglobin (Bld) [Mass/Vol] 12.0 g/dL 12.0-15.0 [facility] Work Phone: Blood lymphocytes/100 leukoc yteson 04-06-2022 Lymphocytes/100 WBC (Bld) 11.4 % 19-41 [facility] Work Phone: Blood monocytes/100 leukocyt eson 04-06-2022 Monocytes/100 WBC (Bld) 7.1 % 0-10 [facility] Work Phone: Blood platelet mean volumeon 04-06-2022 Platelet mean volume (Bld) [Entitic vol] 9.5 fL 6.2-12.0 [facility] Work Phone: Determination of erythrocyte mean corpuscular volume (MCV)on 04-06-2022 MCV (RBC) [Entitic vol] 82.1 fL 81-99 [facility] Work Phone: Erythrocyte sedimentation ra abeba 04-06-2022 ESR (Bld) [Velocity] 118 mm/h 0-30 [facility] Work Phone: Hematocrit Auto (Bld) [Volum e fraction]on 04-06-2022 Hematocrit (Bld) [Volume fraction] 36.8 % 37-47 [facility] Work Phone: Laboratory - Chemistry and C hemistry - challengeon 04-06-2022 CO2 [Moles/Vol] 25.0 mmol/L 21.0-32.0 [facility] Work Phone: [phone] Urea nitrogen/Creatinine [Mass ratio] 5.9 mg/mg 10-20 [facility] Work Phone: [phone] Laboratory - Hematology and Cell countson 04-06-2022 Erythrocyte distribution width (RBC) [Entitic vol] 39.4 fL 35.1-43.9 [facility] Work Phone: [phone] Erythrocyte distribution width (RBC) [Ratio] 13.2 % 11.6-14.6 [facility] Work Phone: [phone] Immature granulocytes/100 WBC (Bld) 1.200 % 0.0-0.9 [facility] Work Phone: [phone] Comment on above: IG% - Immature Granu locytes (promyelocytes, myelocytes and metamyelocytes) > 1% indicates that a LEFT SHIFT is Present. MCH (RBC) [Entitic mass] 26.8 pg 27.0-32.0 [facility] Work Phone: [phone] Nucleated RBC/100 WBC (Bld) [Ratio] 0 % 0-5 [facility] Work Phone: [phone] MCHC Auto (RBC) [Mass/Vol]on 04-06-2022 MCHC (RBC) [Mass/Vol] 32.6 g/dL 32-36 [facility] Work Phone: [phone] No Panel Informationon 04-06 Estimated Creatinine Clearance Calc 76.25 ml/min [facility] Work Phone: [phone] Estimated GFR (MDRD) Amer 83 mL/min >60 [facility] Work Phone: [phone] Comment on above: GFR Calc Estimated GFR (MDRD) Non-Af Amer 68 mL/min >60 [facility] Work Phone: [phone] Comment on above: Non- GFR Calc Platelets bldon 04-06-2022 Platelets (Bld) [#/Vol] 495 10*3/uL 150-450 [facility] Work Phone: Review by pathologiston 03-13 Pathologist review Franky (Unsp spec) [Interp] Zahraa waite [facility] Work Phone: Pathologist review Franky (Unsp spec) [Interp] Reviewed [facility] Work Phone: Comment on above: Previous reported re sult: Zahraa waite Edited by: RGOOD on 04/07/22:1303Neutrophilic leukocytosis with left shift. Thrombocytosis.Clinical correlation necessary.Patrick Castellon M.D. 04/07/22 AMENDED REPORT 04/07/22 1303 PATH REV previously reported as: Zahraa waite Serum or plasma C reactive p rotein measurement (mass/volume)on 04-06-2022 CRP [Mass/Vol] 321.00 mg/L 0.0-3.0 [facility] Work Phone: Comment on above: C-Reactive Protein ( CRP) provides useful information for thediagnosis, therapy and monitoring of inflammatory processesand associated diseases. For the evaluation of Relative Riskfor Cardiovascular Disease, a High Sensitivity CRP (HSCRP)should be ordered. Serum or plasma acetone hussein urement (mass/volume)on 04-06-2022 Acetone [Mass/Vol] Negative NEG [facility] Work Phone: Serum or plasma calcium hussein urement (mass/volume)on 04-06-2022 Calcium [Mass/Vol] 9.7 mg/dL 8.5-10.1 [facility] Work Phone: Serum or plasma creatinine m easurement (mass/volume)on 04-06-2022 Creatinine [Mass/Vol] 1.01 mg/dL 0.55-1.02 [facility] Work Phone: Comment on above: The validity of the calculated GFR & GFRAA in patients over 70 years has not been determined. Clinical correlation is essential. Serum or plasma urea nitroge n measurement (mass/volume)on 04-06-2022 Urea nitrogen [Mass/Vol] 6 mg/dL 7-18 [facility] Work Phone: Thin prep Papanicolaou smear with manual screeningon 04-06-2022 Thin prep Papanicolaou smear with manual screening 11 5-15 [facility] Work Phone: Whole blood hemoglobin A1c/t otal hemoglobin ratio (mass fraction)on 04-06-2022 HbA1c (Bld) [Mass fraction] 10.0 % 3.8-5.6 [facility] Work Phone: Comment on above: Normal < 5.7 % Predi abetic 5.7 - 6.4 % Diabetic >or= 6.5 % Please note range changes. Absolute lymphocyte counton 04-05-2022 Lymphocytes Auto (Unsp spec) [#/Vol] 2.49 10*3/uL 0.83-4.51 [facility] Work Phone: Basophil percentageon 2021 Basophils/100 WBC (Bld) 0.2 % 0-1 [facility] Work Phone: Chloride [Moles/Vol] 93 mmol/L 98-107 [facility] Work Phone: Eosinophils/100 WBC (Bld) 0.2 % 0-5 [facility] Work Phone: Glucose [Mass/Vol] 389 mg/dL 74-106 [facility] Work Phone: Comment on above: Glucose result great er than or equal to 200 mg/dLsuggests DIABETES MELLITUS per A.D.A. criteria. Lactate [Moles/Vol] 2.5 mmol/L 0.4-2.0 [facility] Work Phone: Comment on above: Critical Result(s) C alled at: 13:33:37 04/05/2022 by: Gayathri Torres. Results read back by same. Neutrophils (Bld) [#/Vol] 13.7 10*3/uL 2.0-7.7 [facility] Work Phone: Neutrophils/100 WBC (Bld) 78.3 % 47-70 [facility] Work Phone: Potassium [Moles/Vol] 4.0 mmol/L 3.5-5.1 [facility] Work Phone: Sodium [Moles/Vol] 132 mmol/L 136-145 [facility] Work Phone: WBC (Bld) [#/Vol] 17.5 10*3/uL 4.4-11.0 [facility] Work Phone: Blood erythrocytes count (nu mber/volume)on 04-05-2022 RBC (Bld) [#/Vol] 4.50 10*6/uL 4.2-5.4 [facility] Work Phone: Blood hemoglobin measurement (mass/volume)on 04-05-2022 Hemoglobin (Bld) [Mass/Vol] 12.7 g/dL 12.0-15.0 [facility] Work Phone: [phone] Blood lymphocytes/100 leukoc yteson 04-05-2022 Lymphocytes/100 WBC (Bld) 14.2 % 19-41 [facility] Work Phone: [phone] Blood monocytes/100 leukocyt eson 04-05-2022 Monocytes/100 WBC (Bld) 6.3 % 0-10 [facility] Work Phone: Blood platelet mean volumeon 04-05-2022 Platelet mean volume (Bld) [Entitic vol] 9.7 fL 6.2-12.0 [facility] Work Phone: Determination of erythrocyte mean corpuscular volume (MCV)on 04-05-2022 MCV (RBC) [Entitic vol] 82.2 fL 81-99 [facility] Work Phone: Hematocrit Auto (Bld) [Volum e fraction]on 04-05-2022 Hematocrit (Bld) [Volume fraction] 37.0 % 37-47 [facility] Work Phone: Laboratory - Chemistry and C hemistry - challengeon 04-05-2022 CO2 [Moles/Vol] 28.0 mmol/L 21.0-32.0 [facility] Work Phone: Urea nitrogen/Creatinine [Mass ratio] 8.5 mg/mg 10-20 [facility] Work Phone: [phone] Laboratory - Hematology and Cell countson 04-05-2022 Erythrocyte distribution width (RBC) [Entitic vol] 40.1 fL 35.1-43.9 [facility] Work Phone: [phone] Erythrocyte distribution width (RBC) [Ratio] 13.5 % 11.6-14.6 [facility] Work Phone: [phone] Immature granulocytes/100 WBC (Bld) 0.800 % 0.0-0.9 [facility] Work Phone: [phone] Comment on above: IG% - Immature Granu locytes (promyelocytes, myelocytes and metamyelocytes) > 1% indicates that a LEFT SHIFT is Present. MCH (RBC) [Entitic mass] 28.2 pg 27.0-32.0 [facility] Work Phone: [phone] Nucleated RBC/100 WBC (Bld) [Ratio] 0 % 0-5 [facility] Work Phone: [phone] MCHC Auto (RBC) [Mass/Vol]on 04-05-2022 MCHC (RBC) [Mass/Vol] 34.3 g/dL 32-36 [facility] Work Phone: No Panel Informationon 04-05 Estimated Creatinine Clearance Calc 92.78 ml/min [facility] Work Phone: [phone] Estimated GFR (MDRD) Amer 104 mL/min >60 [facility] Work Phone: [phone] Comment on above: GFR Calc Estimated GFR (MDRD) Non-Af Amer 86 mL/min >60 [facility] Work Phone: [phone] Comment on above: Non- GFR Calc Platelets bldon 04-05-2022 Platelets (Bld) [#/Vol] 444 10*3/uL 150-450 [facility] Work Phone: [phone] Serum or plasma calcium hussein urement (mass/volume)on 04-05-2022 Calcium [Mass/Vol] 9.2 mg/dL 8.5-10.1 [facility] Work Phone: [phone] Serum or plasma creatinine m easurement (mass/volume)on 04-05-2022 Creatinine [Mass/Vol] 0.83 mg/dL 0.55-1.02 [facility] Work Phone: Comment on above: The validity of the calculated GFR & GFRAA in patients over 70 years has not been determined. Clinical correlation is essential. Serum or plasma urea nitroge n measurement (mass/volume)on 04-05-2022 Urea nitrogen [Mass/Vol] 7 mg/dL 7-18 [facility] Work Phone: Thin prep Papanicolaou smear with manual screeningon 04-05-2022 Thin prep Papanicolaou smear with manual screening 11 5-15 [facility] Work Phone: XR CHEST 2V FRONTAL/LATon [facility] XR Chest PA and Lateralon IMPRESSION: Within normal limits. No acute radiographic abnormality. Outlet Manager: OLGA Transcribe Date/Time: Mar 23 2022 1:11P Dictated by : CINDY OBRIEN MD This examination was interpreted and the report reviewed and electronically signed by: CINDY OBRIEN MD on Mar 23 2022 1:14PM [facility] DIVISION OF RADIOLOGY * * *Final [...] soft tissues: Unremarkable. DIVISION OF RADIOLOGY Provider, [facility] Fabienne Dewey - 03/23/2022 * * *Final Report* [...] Within normal limits. No acute radiographic abnormality. Outlet Manager: PSCB Transcribe Date/Time: Mar 23 2022 1:11P Dictated by : CINDY OBRIEN MD This examination was interpreted and the report reviewed and electronically signed by: CINDY OBRIEN MD on Mar 23 2022 1:14PM [facility] Radiology Study [facility] (narrative) [facility] Chest PA and LateralOrder ed By: Ccf Provider on 03-23-2022 [facility] Absolute lymphocyte counton 02-01-2022 Lymphocytes Auto (Unsp spec) [#/Vol] 3.62 10*3/uL 0.83-4.51 [facility] Work Phone: Basophil percentageon 2021 Basophil percentage 0-5 SEEN /hpf 0-5 [facility] Work Phone: Basophils/100 WBC (Bld) 0.3 % 0-1 [facility] Work Phone: Bilirubin [Mass/Vol] 0.40 mg/dL 0.20-1.00 [facility] Work Phone: Comment on above: For patients on eltr ombopag therapy, use of Dimension [place] TBIL is not recommended. Chloride [Moles/Vol] 98 mmol/L 98-107 [facility] Work Phone: Eosinophils/100 WBC (Bld) 0.5 % 0-5 [facility] Work Phone: Glucose [Mass/Vol] 334 mg/dL 74-106 [facility] Work Phone: Comment on above: Glucose result great er than or equal to 200 mg/dLsuggests DIABETES MELLITUS per A.D.A. criteria. Lactate [Moles/Vol] 2.5 mmol/L 0.4-2.0 [facility] Work Phone: Comment on above: Critical Result(s) C alled at: 13:53:33 02/01/2022 by: Gayathri Whiting to [place]. Results read back by same. Neutrophils (Bld) [#/Vol] 5.5 10*3/uL 2.0-7.7 [facility] Work Phone: [phone] Neutrophils/100 WBC (Bld) 54.6 % 47-70 [facility] Work Phone: [phone] Potassium [Moles/Vol] 3.2 mmol/L 3.5-5.1 [facility] Work Phone: [phone] Protein [Mass/Vol] 7.2 g/dL 6.4-8.2 [facility] Work Phone: [phone] Sodium [Moles/Vol] 131 mmol/L 136-145 [facility] Work Phone: [phone] WBC (Bld) [#/Vol] 10.1 10*3/uL 4.4-11.0 [facility] Work Phone: [phone] Beta hCG serum qualon 2021 Beta HCG ( test) Ql Negative [facility] Work Phone: [phone] Bilirubin Test strip Ql (U)o n 02-01-2022 Bilirubin Ql (U) Negative Negative [facility] Work Phone: [phone] Blood erythrocytes count (nu mber/volume)on 02-01-2022 RBC (Bld) [#/Vol] 4.45 10*6/uL 4.2-5.4 [facility] Work Phone: [phone] Blood hemoglobin measurement (mass/volume)on 02-01-2022 Hemoglobin (Bld) [Mass/Vol] 11.7 g/dL 12.0-15.0 [facility] Work Phone: [phone] Blood lymphocytes/100 leukoc yteson 02-01-2022 Lymphocytes/100 WBC (Bld) 35.9 % 19-41 [facility] Work Phone: Blood monocytes/100 leukocyt eson 02-01-2022 Monocytes/100 WBC (Bld) 7.8 % 0-10 [facility] Work Phone: Blood platelet mean volumeon 02-01-2022 Platelet mean volume (Bld) [Entitic vol] 9.7 fL 6.2-12.0 [facility] Work Phone: Determination of erythrocyte mean corpuscular volume (MCV)on 02-01-2022 MCV (RBC) [Entitic vol] 80.2 fL 81-99 [facility] Work Phone: Hematocrit Auto (Bld) [Volum e fraction]on 02-01-2022 Hematocrit (Bld) [Volume fraction] 35.7 % 37-47 [facility] Work Phone: Ketones Test strip Ql (U)on 02-01-2022 Ketones Ql (U) Negative Negative [facility] Work Phone: Laboratory - Chemistry and C hemistry - challengeon 02-01-2022 ALP [Catalytic activity/Vol] 79 U/L 45-117 [facility] Work Phone: ALT [Catalytic activity/Vol] 12 U/L 13-56 [facility] Work Phone: CO2 [Moles/Vol] 24.0 mmol/L 21.0-32.0 [facility] Work Phone: Globulin (S) [Mass/Vol] 4.5 g/dL 2.2-4.2 [facility] Work Phone: Lipase [Catalytic activity/Vol] 154 U/L 73-393 [facility] Work Phone: Urea nitrogen/Creatinine [Mass ratio] 6.9 mg/mg 10-20 [facility] Work Phone: Laboratory - Hematology and Cell countson 02-01-2022 Erythrocyte distribution width (RBC) [Entitic vol] 39.5 fL 35.1-43.9 [facility] Work Phone: [phone] Erythrocyte distribution width (RBC) [Ratio] 13.7 % 11.6-14.6 [facility] Work Phone: [phone] Immature granulocytes/100 WBC (Bld) 0.900 % 0.0-0.9 [facility] Work Phone: [phone] Comment on above: IG% - Immature Granu locytes (promyelocytes, myelocytes and metamyelocytes) > 1% indicates that a LEFT SHIFT is Present. MCH (RBC) [Entitic mass] 26.3 pg 27.0-32.0 [facility] Work Phone: [phone] Nucleated RBC/100 WBC (Bld) [Ratio] 0 % 0-5 [facility] Work Phone: [phone] MCHC Auto (RBC) [Mass/Vol]on 02-01-2022 MCHC (RBC) [Mass/Vol] 32.8 g/dL 32-36 [facility] Work Phone: [phone] Mucus LM Ql (Urine sed)on Mucus Ql (Urine sed) 0 SEEN /hpf [facility] Work Phone: [phone] Nitrite Test strip Ql (U)on 02-01-2022 Nitrite Ql (U) Negative Negative [facility] Work Phone: [phone] Panel Informationon 02-01 Estimated Creatinine Clearance Calc 75.50 ml/min [facility] Work Phone: [phone] Estimated GFR (MDRD) Amer 82 mL/min >60 [facility] Work Phone: [phone] Comment on above: GFR Calc Estimated GFR (MDRD) Non-Af Amer 68 mL/min >60 [facility] Work Phone: [phone] Comment on above: Non- GFR Calc Platelets bldon 02-01-2022 Platelets (Bld) [#/Vol] 368 10*3/uL 150-450 [facility] Work Phone: [phone] Protein Test strip Ql (U)on 02-01-2022 Protein Ql (U) 15 mg/dl Negative [facility] Work Phone: Serum or plasma albumin hussein urement (mass/volume)on 02-01-2022 Albumin [Mass/Vol] 2.7 g/dL 3.2-5.0 [facility] Work Phone: Serum or plasma albumin/glob ulin mass ratioon 02-01-2022 Albumin/Globulin [Mass ratio] 0.6 {ratio} 0.9-2.4 [facility] Work Phone: Serum or plasma calcium hussein urement (mass/volume)on 02-01-2022 Calcium [Mass/Vol] 8.7 mg/dL 8.5-10.1 [facility] Work Phone: [phone] Serum or plasma creatinine m easurement (mass/volume)on 02-01-2022 Creatinine [Mass/Vol] 1.02 mg/dL 0.55-1.02 [facility] Work Phone: Comment on above: The validity of the calculated GFR & GFRAA in patients over 70 years has not been determined. Clinical correlation is essential. Serum or plasma urea nitroge n measurement (mass/volume)on 02-01-2022 Urea nitrogen [Mass/Vol] 7 mg/dL 7-18 [facility] Work Phone: Squamous epithelial cells de tection in urine sediment by light microscopyon 02-01-2022 Epithelial cells.squamous LM Ql (Urine sed) 0-5 SEEN /hpf 5-10 [facility] Work Phone: Thin prep Papanicolaou smear with manual screeningon 02-01-2022 Thin prep Papanicolaou smear with manual screening 8 U/L 15-37 [facility] Work Phone: [phone] Thin prep Papanicolaou smear with manual screening 9 5-15 [facility] Work Phone: Urine blood detectionon 01-10 RBC Ql (U) 50 /ul Negative [facility] Work Phone: [phone] RBC Ql (U) 0-5 SEEN /hpf 0-5 [facility] Work Phone: Urine clarityon 02-01-2022 Clarity (U) Clear Clear [facility] Work Phone: Urine color determinationon 02-01-2022 Color (U) Yellow Yellow [facility] Work Phone: Urine glucose detectionon Glucose Ql (U) 1000 mg/dl Normal [facility] Work Phone: Urine leukocyte esterase det ection by dipstickon 02-01-2022 Leukocyte esterase Test strip Ql (U) 25 /ul Negative [facility] Work Phone: Urine pHon 02-01-2022 pH (U) 5.0 [pH] 5.0 - 8.0 [facility] Work Phone: Urine sediment bacteria coun t by microscopy (number/high power field)on 02-01-2022 Bacteria LM.HPF (Urine sed) [#/Area] 0 /[HPF] None Seen [facility] Work Phone: Urine specific gravity measu rementon 02-01-2022 Specific gravity (U) [Rel density] 1.020 1.002-1.030 [facility] Work Phone: Urobilinogen Auto test strip Ql (U)on 02-01-2022 Urobilinogen Ql (U) Normal mg/dl Normal [facility] Work Phone: Absolute lymphocyte counton 01-30-2022 Lymphocytes Auto (Unsp spec) [#/Vol] 5.16 10*3/uL 0.83-4.51 [facility] Work Phone: Albumin Elph [Mass/Vol]on Albumin [Mass/Vol] 3.6 g/dL 2.9-4.4 [facility] Work Phone: Atypical perinuclear antineu trophil cytoplasmic antibodies measurementon 01-30-2022 Neutrophil cytoplasmic Ab.perinuclear.atypical IF (S) [Titer] <1:20 titer Neg:<1:20 [facility] Work Phone: Comment on above: The atypical pANCA p attern has been observed in asignificant percentage of patients with ulcerative colitis,primary sclerosing cholangitis and autoimmune hepatitis.Performed at: - [facility] [id number] [place], [place] [id number] Director: Wade Lazo PhD, Phone: [phone] at: - [facility] [id number] Director: Philip Robles MD, Phone: [phone] Basophil percentageon 2021 Amylase [Catalytic activity/Vol] 19 U/L 25-115 [facility] Work Phone: Basophil percentage < 0.2 AI 0.0-0.9 [facility] Work Phone: Basophils/100 WBC (Bld) 0.3 % 0-1 [facility] Work Phone: Eosinophils/100 WBC (Bld) 0.5 % 0-5 [facility] Work Phone: Neutrophils (Bld) [#/Vol] 8.8 10*3/uL 2.0-7.7 [facility] Work Phone: Neutrophils/100 WBC (Bld) 57.5 % 47-70 [facility] Work [phone] WBC (Bld) [#/Vol] 15.3 10*3/uL 4.4-11.0 [facility] Work Phone: Blood erythrocytes count (nu mber/volume)on 01-30-2022 RBC (Bld) [#/Vol] 5.33 10*6/uL 4.2-5.4 [facility] Work Phone: Blood hemoglobin measurement (mass/volume)on 01-30-2022 Hemoglobin (Bld) [Mass/Vol] 13.9 g/dL 12.0-15.0 [facility] Work Phone: Blood lymphocytes/100 leukoc yteson 01-30-2022 Lymphocytes/100 WBC (Bld) 33.7 % 19-41 [facility] Work Phone: Blood manual differential co mment interpretation (narrative result)on 01-30-2022 Manual differential comment Franky (Bld) [Interp] SCANNED [facility] Work Phone: Comment on above: LYMPHOCYTOSIS NOTED Blood monocytes/100 leukocyt eson 01-30-2022 Monocytes/100 WBC (Bld) 7.2 % 0-10 [facility] Work Phone: Blood platelet mean volumeon 01-30-2022 Platelet mean volume (Bld) [Entitic vol] 9.5 fL 6.2-12.0 [facility] Work Phone: Determination of erythrocyte mean corpuscular volume (MCV)on 01-30-2022 MCV (RBC) [Entitic vol] 80.3 fL 81-99 [facility] Work Phone: Erythrocyte sedimentation ra abeba 01-30-2022 ESR (Bld) [Velocity] 81 mm/h 0-30 [facility] Work Phone: Hematocrit Auto (Bld) [Volum e fraction]on 01-30-2022 Hematocrit (Bld) [Volume fraction] 42.8 % 37-47 [facility] Work Phone: Interpretation of serum or p lasma protein pattern by immunofixation (narrative resulton 01-30-2022 Protein Fractions Immunofixation Franky [Interp] See comment [facility] Work Phone: Comment on above: NOT OBSERVED Laboratory - Chemistry and C hemistry - challengeon 01-30-2022 Cobalamin (Vitamin B12) [Mass/Vol] 318 pg/mL 211-911 [facility] Work Phone: Lipase [Catalytic activity/Vol] 150 U/L 73-393 [facility] Work Phone: Laboratory - Hematology and Cell countson 01-30-2022 Erythrocyte distribution width (RBC) [Entitic vol] 40.0 fL 35.1-43.9 [facility] Work Phone: [phone] Erythrocyte distribution width (RBC) [Ratio] 14.0 % 11.6-14.6 [facility] Work Phone: [phone] Immature granulocytes/100 WBC (Bld) 0.800 % 0.0-0.9 [facility] Work Phone: [phone] Comment on above: IG% - Immature Granu locytes (promyelocytes, myelocytes and metamyelocytes) > 1% indicates that a LEFT SHIFT is Present. MCH (RBC) [Entitic mass] 26.1 pg 27.0-32.0 [facility] Work Phone: [phone] Nucleated RBC/100 WBC (Bld) [Ratio] 0 % 0-5 [facility] Work Phone: [phone] MCHC Auto (RBC) [Mass/Vol]on 01-30-2022 MCHC (RBC) [Mass/Vol] 32.5 g/dL 32-36 [facility] Work Phone: [phone] Panel Informationon 01-30 Addendum Document Comment . [facility] Work Phone: [phone] Comment on above: Protein electrophore sis scan will follow via computer,mail, or inspector pawnshop detail delivery. Centromere B Antibody <0.2 AI 0.0-0.9 [facility] Work Phone: Endomysial IgA Antibody Negative Negative [facility] Work Phone: [phone] Immunoglobulin E 119 IU/mL 6-495 [facility] Work Phone: [phone] [employer] Antibody <0.2 AI 0.0-0.9 [facility] Work Phone: [phone] Thyroid Stimulating Hormone (TSH) 2.21 uIU/mL 0.358-3.74 [facility] Work Phone: Platelets bldon 01-30-2022 Platelets (Bld) [#/Vol] 484 10*3/uL 150-450 [facility] Work Phone: [phone] Serum DNA double strand anti body assay (units/volume)on 01-30-2022 DNA double strand Ab Qn (S) [IU]/mL 0-9 [facility] Work Phone: Comment on above: Negative <5 Equivoca l 5 - 9 Positive >9 Serum Neva-1 antibody assay (u nits/volume)on 01-30-2022 Neva-1 extractable nuclear Ab Qn (S) <0.2 AI 0.0-0.9 [facility] Work Phone: [phone] Serum Scl-70 extractable nuc lear antibody assay (units/volume)on 01-30-2022 SCL-70 extractable nuclear Ab Qn (S) <0.2 AI 0.0-0.9 [facility] Work Phone: [phone] Serum Jang extractable nucl ear antibody detectionon 01-30-2022 Jang extractable nuclear Ab Ql (S) <0.2 AI 0.0-0.9 [facility] Work Phone: [phone] Serum [id number] measu rement by electrophoresison 01-30-2022 Alpha 1 globulin Elph [Mass/Vol] 0.2 g/dL 0.0-0.4 [facility] Work Phone: [phone] Alpha 1 globulin Elph [Mass/Vol] 1.6 g/dL 0.4-1.0 [facility] Work Phone: [phone] Serum classic neutrophil cyt oplasmic antibody assay (units/volume)on 01-30-2022 Neutrophil cytoplasmic Ab.classic Qn (S) 1:80 titer Neg:<1:20 [facility] Work Phone: [phone] Serum globulin measurement ( mass/volume)on 01-30-2022 Globulin (S) [Mass/Vol] 4.8 g/dL 2.2-3.9 [facility] Work Phone: [phone] Serum or plasma C reactive p rotein measurement (mass/volume)on 01-30-2022 CRP [Mass/Vol] 53.10 mg/L 0.0-3.0 [facility] Work Phone: Comment on above: C-Reactive Protein ( CRP) provides useful information for thediagnosis, therapy and monitoring of inflammatory processesand associated diseases. For the evaluation of Relative Riskfor Cardiovascular Disease, a High Sensitivity CRP (HSCRP)should be ordered. Serum or plasma IgA measurem ent (mass/volume)on 01-30-2022 IgA [Mass/Vol] 478 mg/dL 87-352 [facility] Work Phone: Serum or plasma IgG measurem ent (mass/volume)on 01-30-2022 IgG [Mass/Vol] 1630 mg/dL [phone] [facility] Work Phone: Serum or plasma IgM measurem ent (mass/volume)on 01-30-2022 IgM [Mass/Vol] 294 mg/dL 26-217 [facility] Work Phone: Serum or plasma beta globuli n measurement by electrophoresis (mass/volume)on 01-30-2022 Beta globulin Elph [Mass/Vol] 1.0 g/dL 0.7-1.3 [facility] Work Phone: Serum or plasma folate measu rement (mass/volume)on 01-30-2022 Folate [Mass/Vol] 13.50 ng/mL 3.1-55.4 [facility] Work Phone: Serum or plasma gamma globul in measurement by electrophoresis (mass/volume)on 01-30-2022 Gamma globulin Elph [Mass/Vol] 1.9 g/dL 0.4-1.8 [facility] Work Phone: Serum or plasma immunoelectr ophoresis interpretation (nominal result)on 01-30-2022 Interpretation IEP [Interp] Comment . [facility] Work Phone: Comment on above: No monoclonality det ected. Serum perinuclear neutrophil cytoplasmic antibody titer by immunofluorescenceon 01-30-2022 Neutrophil cytoplasmic Ab.perinuclear IF (S) [Titer] <1:20 titer Neg:<1:20 [facility] Work Phone: Comment on above: The presence of posi tive fluorescence exhibiting P-ANCA orC-ANCA patterns alone is not specific for the diagnosis ofWegener's Granulomatosis (WG) or microscopic polyangiitis.Decisions about treatment should not be based solely onANCA IFA results. The [employer] Consensusrecommends follow up testing of positive sera with both GA-3 and MPO-ANCA enzyme immunoassays. As many as 5% serumsamples are positive only by EIA. Ref. AM J Clin [id number];111:507-513. Serum tissue transglutaminas e IgA antibody assay (units/volume)on 01-30-2022 tTG IgA Qn (S) <2 U/mL 0-3 [facility] Work Phone: Comment on above: Negative 0 - 3 Weak Positive 4 - 10 Positive >10 Tissue Transglutaminase (tTG) has been identified as the endomysial antigen. Studies have demonstr- ated that endomysial IgA antibodies have over 99% specificity for gluten sensitive enteropathy. Thin prep Papanicolaou smear with manual screeningon 01-30-2022 Thin prep Papanicolaou smear with manual screening 153 U/L 84-246 [facility] Work Phone: Thin prep Papanicolaou smear with manual screening 0.8 0.7-1.7 [facility] Work Phone: Total protein bloodon 2021 Protein [Mass/Vol] 8.4 g/dL 6.0-8.5 [facility] Work Phone: [phone] Whole blood hemoglobin A1c/t otal hemoglobin ratio (mass fraction)on 01-30-2022 HbA1c (Bld) [Mass fraction] 11.4 % 3.8-5.6 [facility] Work Phone: Comment on above: Normal < 5.7 % Predi abetic 5.7 - 6.4 % Diabetic >or= 6.5 % Please note range changes. Absolute lymphocyte counton 01-26-2022 Lymphocytes Auto (Unsp spec) [#/Vol] 4.70 10*3/uL 0.83-4.51 [facility] Work Phone: [phone] Basophil percentageon 2021 Basophils/100 WBC (Bld) 0.4 % 0-1 [facility] Work Phone: [phone] Bilirubin [Mass/Vol] 0.40 mg/dL 0.20-1.00 [facility] Work Phone: Comment on above: For patients on eltr ombopag therapy, use of Dimension [place] TBIL is not recommended. Chloride [Moles/Vol] 101 mmol/L 98-107 [facility] Work Phone: Eosinophils/100 WBC (Bld) 0.2 % 0-5 [facility] Work Phone: [phone] Glucose [Mass/Vol] 320 mg/dL 74-106 [facility] Work Phone: Comment on above: Glucose result great er than or equal to 200 mg/dLsuggests DIABETES MELLITUS per A.D.A. criteria. Neutrophils (Bld) [#/Vol] 5.6 10*3/uL 2.0-7.7 [facility] Work Phone: Neutrophils/100 WBC (Bld) 50.6 % 47-70 [facility] Work Phone: [phone] Potassium [Moles/Vol] 3.6 mmol/L 3.5-5.1 [facility] Work Phone: Protein [Mass/Vol] 8.5 g/dL 6.4-8.2 [facility] Work Phone: Sodium [Moles/Vol] 136 mmol/L 136-145 [facility] Work Phone: WBC (Bld) [#/Vol] 11.1 10*3/uL 4.4-11.0 [facility] Work Phone: Blood erythrocytes count (nu mber/volume)on 01-26-2022 RBC (Bld) [#/Vol] 4.99 10*6/uL 4.2-5.4 [facility] Work Phone: Blood hemoglobin measurement (mass/volume)on 01-26-2022 Hemoglobin (Bld) [Mass/Vol] 12.9 g/dL 12.0-15.0 [facility] Work Phone: Blood lymphocytes/100 leukoc yteson 01-26-2022 Lymphocytes/100 WBC (Bld) 42.2 % 19-41 [facility] Work Phone: Blood monocytes/100 leukocyt eson 01-26-2022 Monocytes/100 WBC (Bld) 5.9 % 0-10 [facility] Work Phone: Blood platelet mean volumeon 01-26-2022 Platelet mean volume (Bld) [Entitic vol] 9.5 fL 6.2-12.0 [facility] Work Phone: Determination of erythrocyte mean corpuscular volume (MCV)on 01-26-2022 MCV (RBC) [Entitic vol] 77.8 fL 81-99 [facility] Work Phone: Hematocrit Auto (Bld) [Volum e fraction]on 01-26-2022 Hematocrit (Bld) [Volume fraction] 38.8 % 37-47 [facility] Work Phone: Laboratory - Chemistry and C hemistry - challengeon 01-26-2022 ALP [Catalytic activity/Vol] 85 U/L 45-117 [facility] Work Phone: ALT [Catalytic activity/Vol] 14 U/L 13-56 [facility] Work Phone: CO2 [Moles/Vol] 26.0 mmol/L 21.0-32.0 [facility] Work Phone: Globulin (S) [Mass/Vol] 5.3 g/dL 2.2-4.2 [facility] Work Phone: Lipase [Catalytic activity/Vol] 179 U/L 73-393 [facility] Work Phone: Urea nitrogen/Creatinine [Mass ratio] 13.1 mg/mg 10-20 [facility] Work Phone: Laboratory - Hematology and Cell countson 01-26-2022 Erythrocyte distribution width (RBC) [Entitic vol] 37.9 fL 35.1-43.9 [facility] Work Phone: Erythrocyte distribution width (RBC) [Ratio] 13.8 % 11.6-14.6 [facility] Work Phone: Immature granulocytes/100 WBC (Bld) 0.700 % 0.0-0.9 [facility] Work Phone: [phone] Comment on above: IG% - Immature Granu locytes (promyelocytes, myelocytes and metamyelocytes) > 1% indicates that a LEFT SHIFT is Present. MCH (RBC) [Entitic mass] 25.9 pg 27.0-32.0 [facility] Work Phone: [phone] Nucleated RBC/100 WBC (Bld) [Ratio] 0 % 0-5 [facility] Work Phone: [phone] MCHC Auto (RBC) [Mass/Vol]on 01-26-2022 MCHC (RBC) [Mass/Vol] 33.2 g/dL 32-36 [facility] Work Phone: [phone] Panel Informationon 01-26 Estimated Creatinine Clearance Calc 84.46 ml/min [facility] Work Phone: [phone] Estimated GFR (MDRD) Amer 92 mL/min >60 [facility] Work Phone: [phone] Comment on above: GFR Calc Estimated GFR (MDRD) Non-Af Amer 76 mL/min >60 [facility] Work Phone: [phone] Comment on above: Non- GFR Calc Platelets bldon 01-26-2022 Platelets (Bld) [#/Vol] 474 10*3/uL 150-450 [facility] Work Phone: [phone] Serum or plasma albumin hussein urement (mass/volume)on 01-26-2022 Albumin [Mass/Vol] 3.2 g/dL 3.2-5.0 [facility] Work Phone: [phone] Serum or plasma albumin/glob ulin mass ratioon 01-26-2022 Albumin/Globulin [Mass ratio] 0.6 {ratio} 0.9-2.4 [facility] Work Phone: [phone] Serum or plasma calcium hussein urement (mass/volume)on 01-26-2022 Calcium [Mass/Vol] 9.3 mg/dL 8.5-10.1 [facility] Work Phone: Serum or plasma creatinine m easurement (mass/volume)on 01-26-2022 Creatinine [Mass/Vol] 0.92 mg/dL 0.55-1.02 [facility] Work Phone: Comment on above: The validity of the calculated GFR & GFRAA in patients over 70 years has not been determined. Clinical correlation is essential. Serum or plasma urea nitroge n measurement (mass/volume)on 01-26-2022 Urea nitrogen [Mass/Vol] 12 mg/dL 7-18 [facility] Work Phone: Thin prep Papanicolaou smear with manual screeningon 01-26-2022 Thin prep Papanicolaou smear with manual screening 7 U/L 15-37 [facility] Work Phone: Thin prep Papanicolaou smear with manual screening 9 5-15 [facility] Work Phone: Absolute lymphocyte counton 01-23-2022 Lymphocytes Auto (Unsp spec) [#/Vol] 3.74 10*3/uL 0.83-4.51 [facility] Work Phone: Basophil percentageon 2021 Basophils/100 WBC (Bld) 0.4 % 0-1 [facility] Work Phone: [phone] Chloride [Moles/Vol] 97 mmol/L 98-107 [facility] Work Phone: Eosinophils/100 WBC (Bld) 0.4 % 0-5 [facility] Work Phone: [phone] Glucose [Mass/Vol] 362 mg/dL 74-106 [facility] Work Phone: Comment on above: Glucose result great er than or equal to 200 mg/dLsuggests DIABETES MELLITUS per A.D.A. criteria. Neutrophils (Bld) [#/Vol] 5.3 10*3/uL 2.0-7.7 [facility] Work Phone: Neutrophils/100 WBC (Bld) 53.8 % 47-70 [facility] Work Phone: Potassium [Moles/Vol] 4.0 mmol/L 3.5-5.1 [place] [facility] Work Phone: [phone] Sodium [Moles/Vol] 131 mmol/L 136-145 [facility] Work Phone: [phone] WBC (Bld) [#/Vol] 9.8 10*3/uL 4.4-11.0 [facility] Work Phone: [phone] Blood erythrocytes count (nu mber/volume)on 01-23-2022 RBC (Bld) [#/Vol] 5.18 10*6/uL 4.2-5.4 [facility] Work Phone: Blood hemoglobin measurement (mass/volume)on 01-23-2022 Hemoglobin (Bld) [Mass/Vol] 13.4 g/dL 12.0-15.0 [facility] Work Phone: [phone] Blood lymphocytes/100 leukoc yteson 01-23-2022 Lymphocytes/100 WBC (Bld) 38.3 % 19-41 [facility] Work Phone: [phone] Blood monocytes/100 leukocyt eson 01-23-2022 Monocytes/100 WBC (Bld) 6.3 % 0-10 [facility] Work Phone: [phone] Blood platelet mean volumeon 01-23-2022 Platelet mean volume (Bld) [Entitic vol] 9.2 fL 6.2-12.0 [facility] Work Phone: [phone] Determination of erythrocyte mean corpuscular volume (MCV)on 01-23-2022 MCV (RBC) [Entitic vol] 78.2 fL 81-99 [facility] Work Phone: Hematocrit Auto (Bld) [Volum e fraction]on 01-23-2022 Hematocrit (Bld) [Volume fraction] 40.5 % 37-47 [facility] Work Phone: Laboratory - Chemistry and C hemistry - challengeon 01-23-2022 CO2 [Moles/Vol] 24.0 mmol/L 21.0-32.0 [facility] Work Phone: [phone] Urea nitrogen/Creatinine [Mass ratio] 17.3 mg/mg 10-20 [facility] Work Phone: [phone] Laboratory - Hematology and Cell countson 01-23-2022 Erythrocyte distribution width (RBC) [Entitic vol] 38.2 fL 35.1-43.9 [facility] Work Phone: [phone] Erythrocyte distribution width (RBC) [Ratio] 13.5 % 11.6-14.6 [facility] Work Phone: [phone] Immature granulocytes/100 WBC (Bld) 0.800 % 0.0-0.9 [facility] Work Phone: [phone] Comment on above: IG% - Immature Granu locytes (promyelocytes, myelocytes and metamyelocytes) > 1% indicates that a LEFT SHIFT is Present. MCH (RBC) [Entitic mass] 25.9 pg 27.0-32.0 [facility] Work Phone: [phone] Nucleated RBC/100 WBC (Bld) [Ratio] 0 % 0-5 [facility] Work Phone: [phone] MCHC Auto (RBC) [Mass/Vol]on 01-23-2022 MCHC (RBC) [Mass/Vol] 33.1 g/dL 32-36 [facility] Work Phone: [phone] Panel Informationon 01-23 Estimated Creatinine Clearance Calc 79.29 ml/min [facility] Work Phone: [phone] Estimated GFR (MDRD) Amer 85 mL/min >60 [facility] Work Phone: [phone] Comment on above: GFR Calc Estimated GFR (MDRD) Non-Af Amer 70 mL/min >60 [facility] Work Phone: [phone] Comment on above: Non- GFR Calc Platelets bldon 01-23-2022 Platelets (Bld) [#/Vol] 470 10*3/uL 150-450 [facility] Work Phone: [phone] Serum or plasma calcium hussein urement (mass/volume)on 01-23-2022 Calcium [Mass/Vol] 9.6 mg/dL 8.5-10.1 [facility] Work Phone: Serum or plasma creatinine m easurement (mass/volume)on 01-23-2022 Creatinine [Mass/Vol] 0.98 mg/dL 0.55-1.02 [facility] Work Phone: Comment on above: The validity of the calculated GFR & GFRAA in patients over 70 years has not been determined. Clinical correlation is essential. Serum or plasma urea nitroge n measurement (mass/volume)on 01-23-2022 Urea nitrogen [Mass/Vol] 17 mg/dL 7-18 [facility] Work Phone: Thin prep Papanicolaou smear with manual screeningon 01-23-2022 Thin prep Papanicolaou smear with manual screening 04 15- [facility] Work Phone: Glucose Glucometer (BldC) [M ass/Vol]on 01-22-2022 Glucose [Mass/Vol] 320 mg/dL 74-106 [facility] Work Phone: Comment on above: MANAGEMENT OF PATIEN T CARE PER NURSING PROTOCOL Glucose Glucometer (BldC) [M ass/Vol]on 01-16-2022 Glucose [Mass/Vol] 440 mg/dL 74-106 [facility] Work Phone: Comment on above: MANAGEMENT OF PATIEN T CARE PER NURSING PROTOCOL Absolute lymphocyte counton 11-16-2021 Lymphocytes Auto (Unsp spec) [#/Vol] 2.57 10*3/uL 0.83-4.51 [facility] Work Phone: Basophil percentageon 2021 Basophils/100 WBC (Bld) 0.4 % 0-1 [facility] Work Phone: [phone] Bilirubin [Mass/Vol] 0.50 mg/dL 0.20-1.00 [facility] Work Phone: Comment on above: For patients on eltr ombopag therapy, use of Dimension [place] TBIL is not recommended. Chloride [Moles/Vol] 99 mmol/L 98-107 [facility] Work Phone: Eosinophils/100 WBC (Bld) 0.6 % 0-5 [facility] Work Phone: Glucose [Mass/Vol] 331 mg/dL 74-106 [facility] Work Phone: Comment on above: Glucose result great er than or equal to 200 mg/dLsuggests DIABETES MELLITUS per A.D.A. criteria. Neutrophils (Bld) [#/Vol] 7.4 10*3/uL 2.0-7.7 [facility] Work Phone: Neutrophils/100 WBC (Bld) 68.0 % 47-70 [facility] Work Phone: Potassium [Moles/Vol] 4.1 mmol/L 3.5-5.1 [facility] Work Phone: Protein [Mass/Vol] 8.7 g/dL 6.4-8.2 [facility] Work Phone: Sodium [Moles/Vol] 133 mmol/L 136-145 [facility] Work Phone: WBC (Bld) [#/Vol] 10.9 10*3/uL 4.4-11.0 [facility] Work Phone: Blood erythrocytes count (nu mber/volume)on 11-16-2021 RBC (Bld) [#/Vol] 4.48 10*6/uL 4.2-5.4 [facility] Work Phone: Blood hemoglobin measurement (mass/volume)on 11-16-2021 Hemoglobin (Bld) [Mass/Vol] 11.9 g/dL 12.0-15.0 [facility] Work Phone: Blood lymphocytes/100 leukoc yteson 11-16-2021 Lymphocytes/100 WBC (Bld) 23.5 % 19-41 [facility] Work Phone: Blood monocytes/100 leukocyt eson 11-16-2021 Monocytes/100 WBC (Bld) 6.7 % 0-10 [facility] Work Phone: [phone] Blood platelet mean volumeon 11-16-2021 Platelet mean volume (Bld) [Entitic vol] 9.2 fL 6.2-12.0 [facility] Work Phone: [phone] Determination of erythrocyte mean corpuscular volume (MCV)on 11-16-2021 MCV (RBC) [Entitic vol] 81.9 fL 81-99 [facility] Work Phone: [phone] Hematocrit Auto (Bld) [Volum e fraction]on 11-16-2021 Hematocrit (Bld) [Volume fraction] 36.7 % 37-47 [facility] Work Phone: [phone] Laboratory - Chemistry and C hemistry - challengeon 11-16-2021 ALP [Catalytic activity/Vol] 130 U/L 45-117 [facility] Work Phone: [phone] ALT [Catalytic activity/Vol] 12 U/L 13-56 [facility] Work Phone: [phone] CO2 [Moles/Vol] 27.0 mmol/L 21.0-32.0 [facility] Work Phone: [phone] Globulin (S) [Mass/Vol] 6.0 g/dL 2.2-4.2 [facility] Work Phone: [phone] Urea nitrogen/Creatinine [Mass ratio] 10.7 mg/mg 10-20 [facility] Work Phone: [phone] Laboratory - Hematology and Cell countson 11-16-2021 Erythrocyte distribution width (RBC) [Entitic vol] 38.0 fL 35.1-43.9 [facility] Work Phone: [phone] Erythrocyte distribution width (RBC) [Ratio] 12.7 % 11.6-14.6 [facility] Work Phone: [phone] Immature granulocytes/100 WBC (Bld) 0.800 % 0.0-0.9 [facility] Work Phone: [phone] Comment on above: IG% - Immature Granu locytes (promyelocytes, myelocytes and metamyelocytes) > 1% indicates that a LEFT SHIFT is Present. MCH (RBC) [Entitic mass] 26.6 pg 27.0-32.0 [facility] Work Phone: Nucleated RBC/100 WBC (Bld) [Ratio] 0 % 0-5 [facility] Work Phone: [phone] MCHC Auto (RBC) [Mass/Vol]on 11-16-2021 MCHC (RBC) [Mass/Vol] 32.4 g/dL 32-36 [facility] Work Phone: No Panel Informationon 11-16 Estimated Creatinine Clearance Calc 103.61 ml/min [facility] Work Phone: [phone] Estimated GFR (MDRD) Amer 117 mL/min >60 [facility] Work Phone: [phone] Comment on above: GFR Calc Estimated GFR (MDRD) Non-Af Amer 96 mL/min >60 [facility] Work Phone: Comment on above: Non- GFR Calc Platelets bldon 11-16-2021 Platelets (Bld) [#/Vol] 471 10*3/uL 150-450 [facility] Work Phone: [phone] Serum or plasma albumin hussein urement (mass/volume)on 11-16-2021 Albumin [Mass/Vol] 2.7 g/dL 3.2-5.0 [facility] Work Phone: [phone] Serum or plasma albumin/glob ulin mass ratioon 11-16-2021 Albumin/Globulin [Mass ratio] 0.4 {ratio} 0.9-2.4 [facility] Work Phone: [phone] Serum or plasma calcium hussein urement (mass/volume)on 11-16-2021 Calcium [Mass/Vol] 8.9 mg/dL 8.5-10.1 [facility] Work Phone: [phone] Serum or plasma creatinine m easurement (mass/volume)on 11-16-2021 Creatinine [Mass/Vol] 0.75 mg/dL 0.55-1.02 [facility] Work Phone: [phone] Comment on above: The validity of the calculated GFR & GFRAA in patients over 70 years has not been determined. Clinical correlation is essential. Serum or plasma urea nitroge n measurement (mass/volume)on 11-16-2021 Urea nitrogen [Mass/Vol] 8 mg/dL 7-18 [facility] Work Phone: Thin prep Papanicolaou smear with manual screeningon 11-16-2021 Thin prep Papanicolaou smear with manual screening 6 U/L 15-37 [facility] Work Phone: [phone] Thin prep Papanicolaou smear with manual screening 7 5-15 [facility] Work Phone: Absolute lymphocyte counton 10-29-2021 Lymphocytes Auto (Unsp spec) [#/Vol] 2.98 10*3/uL 0.83-4.51 [facility] Work Phone: Basophil percentageon 2021 Basophils/100 WBC (Bld) 0.5 % 0-1 [facility] Work Phone: Bilirubin [Mass/Vol] 0.30 mg/dL 0.20-1.00 [facility] Work Phone: Comment on above: For patients on eltr ombopag therapy, use of Dimension [place] TBIL is not recommended. Chloride [Moles/Vol] 99 mmol/L 98-107 [facility] Work Phone: Eosinophils/100 WBC (Bld) 0.2 % 0-5 [facility] Work Phone: Glucose [Mass/Vol] 387 mg/dL 74-106 [facility] Work Phone: Comment on above: Glucose result great er than or equal to 200 mg/dLsuggests DIABETES MELLITUS per A.D.A. criteria. Neutrophils (Bld) [#/Vol] 9.2 10*3/uL 2.0-7.7 [facility] Work Phone: Neutrophils/100 WBC (Bld) 70.3 % 47-70 [facility] Work Phone: Potassium [Moles/Vol] 4.4 mmol/L 3.5-5.1 [facility] Work Phone: Protein [Mass/Vol] 9.0 g/dL 6.4-8.2 [facility] Work Phone: [phone] Sodium [Moles/Vol] 130 mmol/L 136-145 [facility]: [phone] WBC (Bld) [#/Vol] 13.0 10*3/uL 4.4-11.0 [facility]: [phone] Blood erythrocytes count (nu mber/volume)on 10-29-2021 RBC (Bld) [#/Vol] 4.95 10*6/uL 4.2-5.4 [facility] Work Phone: Blood hemoglobin measurement (mass/volume)on 10-29-2021 Hemoglobin (Bld) [Mass/Vol] 13.3 g/dL 12.0-15.0 [facility] Work Phone: [phone] Blood lymphocytes/100 leukoc yteson 10-29-2021 Lymphocytes/100 WBC (Bld) 22.9 % 19-41 [facility] Work Phone: [phone] Blood monocytes/100 leukocyt eson 10-29-2021 Monocytes/100 WBC (Bld) 5.3 % 0-10 [facility] Work Phone: [phone] Blood platelet mean volumeon 10-29-2021 Platelet mean volume (Bld) [Entitic vol] 9.0 fL 6.2-12.0 [facility] Work Phone: [phone] Determination of erythrocyte mean corpuscular volume (MCV)on 10-29-2021 MCV (RBC) [Entitic vol] 80.0 fL 81-99 [facility] Work Phone: [phone] Hematocrit Auto (Bld) [Volum e fraction]on 10-29-2021 Hematocrit (Bld) [Volume fraction] 39.6 % 37-47 [facility] Work Phone: [phone] Laboratory - Chemistry and C hemistry - challengeon 10-29-2021 ALP [Catalytic activity/Vol] 156 U/L 45-117 [facility] Work Phone: [phone] ALT [Catalytic activity/Vol] 23 U/L 13-56 [facility] Work Phone: [phone] CO2 [Moles/Vol] 25.0 mmol/L 21.0-32.0 [facility] Work Phone: [phone] Globulin (S) [Mass/Vol] 5.9 g/dL 2.2-4.2 [facility] Work Phone: [phone] Urea nitrogen/Creatinine [Mass ratio] 13.8 mg/mg 10-20 [facility] Work Phone: [phone] Laboratory - Hematology and Cell countson 10-29-2021 Erythrocyte distribution width (RBC) [Entitic vol] 37.2 fL 35.1-43.9 [facility] Work Phone: [phone] Erythrocyte distribution width (RBC) [Ratio] 13.1 % 11.6-14.6 [facility] Work Phone: [phone] Immature granulocytes/100 WBC (Bld) 0.800 % 0.0-0.9 [facility] Work Phone: [phone] Comment on above: IG% - Immature Granu locytes (promyelocytes, myelocytes and metamyelocytes) > 1% indicates that a LEFT SHIFT is Present. MCH (RBC) [Entitic mass] 26.9 pg 27.0-32.0 [facility] Work Phone: [phone] Nucleated RBC/100 WBC (Bld) [Ratio] 0 % 0-5 [facility] Work Phone: [phone] MCHC Auto (RBC) [Mass/Vol]on 10-29-2021 MCHC (RBC) [Mass/Vol] 33.6 g/dL 32-36 [facility] Work Phone: [phone] Panel Informationon 10-29 Estimated Creatinine Clearance Calc 89.32 ml/min [facility] Work Phone: [phone] Estimated GFR (MDRD) Amer 99 mL/min >60 [facility] Work Phone: Comment on above: GFR Calc Estimated GFR (MDRD) Non-Af Amer 82 mL/min >60 [facility] Work Phone: Comment on above: Non- GFR Calc Platelets bldon 10-29-2021 Platelets (Bld) [#/Vol] 460 10*3/uL 150-450 [facility] Work Phone: Serum or plasma albumin hussein urement (mass/volume)on 10-29-2021 Albumin [Mass/Vol] 3.1 g/dL 3.2-5.0 [facility] Work Phone: Serum or plasma albumin/glob ulin mass ratioon 10-29-2021 Albumin/Globulin [Mass ratio] 0.5 {ratio} 0.9-2.4 [facility] Work Phone: Serum or plasma calcium hussein urement (mass/volume)on 10-29-2021 Calcium [Mass/Vol] 9.0 mg/dL 8.5-10.1 [facility] Work Phone: Serum or plasma choriogonado tropin detectionon 10-29-2021 HCG ( test) Ql < 1 mIU/mL <4 [facility] Work Phone: Comment on above: hCG levels with Gest ational AgeGestational Age hCG mIU/mL (IU/L)0.2 - 1 week 5 - 501-2 weeks 50 - 5002-3 weeks 100 - 20854-4 weeks 500 - 205124-1 weeks 1000 - 188849-0 weeks 44980 - 100,0006-8 weeks 49712 - 200,0002-3 months 90111 - 100,000 Serum or plasma creatinine m easurement (mass/volume)on 10-29-2021 Creatinine [Mass/Vol] 0.87 mg/dL 0.55-1.02 [facility] Work Phone: Comment on above: The validity of the calculated GFR & GFRAA in patients over 70 years has not been determined. Clinical correlation is essential. Serum or plasma urea nitroge n measurement (mass/volume)on 10-29-2021 Urea nitrogen [Mass/Vol] 12 mg/dL 7-18 [facility] Work Phone: Thin prep Papanicolaou smear with manual screeningon 10-29-2021 Thin prep Papanicolaou smear with manual screening 13 U/L 15-37 [facility] Work Phone: Thin prep Papanicolaou smear with manual screening 6 5-15 [facility] Work Phone: Absolute lymphocyte counton 08-10-2021 Lymphocytes Auto (Unsp spec) [#/Vol] 0.86 10*3/uL 0.83-4.51 [facility] Work Phone: Basophil percentageon 2021 Basophil percentage 5-10 SEEN /hpf [facility] Work Phone: Basophils/100 WBC (Bld) 0.2 % 0-1 [facility] Work Phone: Chloride [Moles/Vol] 100 mmol/L 98-107 [facility] Work Phone: Eosinophils/100 WBC (Bld) 0.3 % 0-5 [facility] Work Phone: Glucose [Mass/Vol] 406 mg/dL 74-106 [facility] Work Phone: Comment on above: Glucose result great er than or equal to 200 mg/dLsuggests DIABETES MELLITUS per A.D.A. criteria. Neutrophils (Bld) [#/Vol] 12.4 10*3/uL 2.0-7.7 [facility] Work Phone: Neutrophils/100 WBC (Bld) 89.0 % 47-70 [facility] Work Phone: Potassium [Moles/Vol] 4.2 mmol/L 3.5-5.1 [facility] Work Phone: Sodium [Moles/Vol] 134 mmol/L 136-145 [facility] Work Phone: WBC (Bld) [#/Vol] 14.0 10*3/uL 4.4-11.0 [facility] Work Phone: Beta hCG serum qualon 2021 Beta HCG ( test) Ql Negative [facility] Work Phone: Bilirubin Test strip Ql (U)o n 08-10-2021 Bilirubin Ql (U) Negative Negative [facility] Work Phone: Blood erythrocytes count (nu mber/volume)on 08-10-2021 RBC (Bld) [#/Vol] 5.34 10*6/uL 4.2-5.4 [facility] Work Phone: Blood hemoglobin measurement (mass/volume)on 08-10-2021 Hemoglobin (Bld) [Mass/Vol] 14.7 g/dL 12.0-15.0 [facility] Work Phone: Blood lymphocytes/100 leukoc yteson 08-10-2021 Lymphocytes/100 WBC (Bld) 6.1 % 19-41 [facility] Work Phone: Blood monocytes/100 leukocyt eson 08-10-2021 Monocytes/100 WBC (Bld) 4.0 % 0-10 [facility] Work Phone: Blood platelet mean volumeon 08-10-2021 Platelet mean volume (Bld) [Entitic vol] 9.6 fL 6.2-12.0 [facility] Work Phone: Determination of erythrocyte mean corpuscular volume (MCV)on 08-10-2021 MCV (RBC) [Entitic vol] 82.4 fL 81-99 [facility] Work Phone: Glucose Glucometer (BldC) [M ass/Vol]on 08-10-2021 Glucose [Mass/Vol] 377 mg/dL 70-110 [facility] Work Phone: Comment on above: MANAGEMENT OF PATIEN T CARE PER NURSING PROTOCOL Hematocrit Auto (Bld) [Volum e fraction]on 08-10-2021 Hematocrit (Bld) [Volume fraction] 44.0 % 37-47 [facility] Work Phone: Ketones Test strip Ql (U)on 08-10-2021 Ketones Ql (U) 150 mg/dl Negative [facility] Work Phone: [phone] Comment on above: CRITICAL VALUE *HCRI TICAL VALUE VERIFIED. CALLED TO Rafa PERAZA RN (ED)08/10/21 4745 Rafiq Rebolledo.RESULTS READ BACK BY SAME . Laboratory - Chemistry and C hemistry - challengeon 08-10-2021 CO2 [Moles/Vol] 23.0 mmol/L 21.0-32.0 [facility] Work Phone: [phone] Urea nitrogen/Creatinine [Mass ratio] 18.6 mg/mg 10-20 [facility] Work Phone: [phone] Laboratory - Hematology and Cell countson 08-10-2021 Erythrocyte distribution width (RBC) [Entitic vol] 39.0 fL 35.1-43.9 [facility] Work Phone: [phone] Erythrocyte distribution width (RBC) [Ratio] 13.1 % 11.6-14.6 [facility] Work Phone: [phone] Immature granulocytes/100 WBC (Bld) 0.400 % 0.0-0.9 [facility] Work Phone: [phone] Comment on above: IG% - Immature Granu locytes (promyelocytes, myelocytes and metamyelocytes) > 1% indicates that a LEFT SHIFT is Present. MCH (RBC) [Entitic mass] 27.5 pg 27.0-32.0 [facility] Work Phone: [phone] Nucleated RBC/100 WBC (Bld) [Ratio] 0 % 0-5 [facility] Work Phone: [phone] MCHC Auto (RBC) [Mass/Vol]on 08-10-2021 MCHC (RBC) [Mass/Vol] 33.4 g/dL 32-36 [facility] Work Phone: [phone] Mucus LM Ql (Urine sed)on Mucus Ql (Urine sed) 0 SEEN /hpf [facility] Work Phone: [phone] Nitrite Test strip Ql (U)on 08-10-2021 Nitrite Ql (U) Negative Negative [facility] Work Phone: No Panel Informationon 08-10 Estimated Creatinine Clearance Calc 90.36 ml/min [facility] Work Phone: [phone] Estimated GFR (MDRD) Amer 100 mL/min >60 [facility] Work Phone: Comment on above: GFR Calc Estimated GFR (MDRD) Non-Af Amer 83 mL/min >60 [facility] Work Phone: [phone] Comment on above: Non- GFR Calc Platelets bldon 08-10-2021 Platelets (Bld) [#/Vol] 343 10*3/uL 150-450 [facility] Work Phone: Protein Test strip Ql (U)on 08-10-2021 Protein Ql (U) 30 mg/dl Negative [facility] Work Phone: [phone] Serum or plasma calcium hussein urement (mass/volume)on 08-10-2021 Calcium [Mass/Vol] 8.8 mg/dL 8.5-10.1 [facility] Work Phone: [phone] Serum or plasma creatinine m easurement (mass/volume)on 08-10-2021 Creatinine [Mass/Vol] 0.86 mg/dL 0.55-1.02 [facility] Work Phone: Comment on above: The validity of the calculated GFR & GFRAA in patients over 70 years has not been determined. Clinical correlation is essential. Serum or plasma urea nitroge n measurement (mass/volume)on 08-10-2021 Urea nitrogen [Mass/Vol] 16 mg/dL 7-18 [facility] Work Phone: [phone] Squamous epithelial cells de tection in urine sediment by light microscopyon 08-10-2021 Epithelial cells.squamous LM Ql (Urine sed) 0-5 SEEN /hpf [facility] Work Phone: Thin prep Papanicolaou smear with manual screeningon 08-10-2021 Thin prep Papanicolaou smear with manual screening 11 5-15 [facility] Work Phone: [phone] Urine blood detectionon 07-14 RBC Ql (U) 250 /ul Negative [facility] Work Phone: RBC Ql (U) > 100 SEEN /hpf [facility] Work Phone: Urine clarityon 08-10-2021 Clarity (U) Cloudy Clear [facility] Work Phone: Urine color determinationon 08-10-2021 Color (U) Yellow Yellow [facility] Work Phone: Urine glucose detectionon Glucose Ql (U) 1000 mg/dl Normal [facility] Work Phone: [phone] Urine leukocyte esterase det ection by dipstickon 08-10-2021 Leukocyte esterase Test strip Ql (U) 25 /ul Negative [facility] Work Phone: Urine pHon 08-10-2021 pH (U) 7.0 [pH] [facility] Work Phone: Urine sediment bacteria coun t by microscopy (number/high power field)on 08-10-2021 Bacteria LM.HPF (Urine sed) [#/Area] 1 /[HPF] None Seen [facility] Work Phone: Urine specific gravity measu rementon 08-10-2021 Specific gravity (U) [Rel density] 1.005 [facility] Work Phone: Urobilinogen Auto test strip Ql (U)on 08-10-2021 Urobilinogen Ql (U) 1 mg/dl Normal [facility] Work Phone: XR Chest PA and Lateralon IMPRESSION: No acute radiographic abnormality. Outlet Manager: PSCB Transcribe Date/Time: May 15 2021 10:07A Dictated by : ELISEO LYON MD This examination was interpreted and the report reviewed and electronically signed by: ELISEO LYON MD on May 15 2021 10:08AM [facility] DIVISION OF RADIOLOGY * * *Final [...] soft tissues: Unremarkable. DIVISION OF RADIOLOGY Provider, [facility] Fabienne [facility]ly [facility] - 05/15/2021 * * *Final Report* [...] Unremarkable. IMPRESSION IMPRESSION: No acute radiographic abnormality. Outlet Manager: PSCB Transcribe Date/Time: May 15 2021 10:07A Dictated by : ELISEO LYON MD This examination was interpreted and the report reviewed and electronically signed by: ELISEO LYON MD on May 15 2021 10:08AM EST [facility] Radiology [facility]narrative[facility] Chest PA and LateralOrder ed By: [facility] Provider on 05-15-2021 [facility] Anaerobic culture Bacteria identified Anaer cx Nom (Unsp spec) No anaerobic bacteria isolated. [facility] Work Phone: Bacteria identified Anaer cx Nom (Unsp spec) Anaerobic microbial culture No anaerobic bacteria isolated. [facility] Work Phone: Bacteria identified Cx Nom ( Wound) Wound Culture Meth. resistant Stap h. aureus [facility] Work Phone: Wound Culture Streptococcus agalactiae (B) [facility] Work Phone: COVID-19 virus antigen assay SARS-CoV-2 (COVID-19) Ag IA.rapid Ql (Resp) [facility] Work Phone: Culture, urine Bacteria identified Cx Nom (U) Culture exhibits no growth. [facility] Work Phone: [phone] Gram stain for investigation of transfusion reaction Microscopic observation Gram stain Nom (Unsp spec) [facility] Work Phone: [phone] Laboratory - Microbiology an d Antimicrobial susceptibility Bacteria identified Cx Nom (Bld) No growth in 5 days. [facility] Work Phone: Routine wound culture Bacteria identified Cx Nom (Wound) No growth aerobically. [facility] Work Phone: Vital Signs Date Time Vital Sign Value Performing Clinician Facility 01-04-2025 10:00-0400 Diastolic blood pressure 81 mm[Hg] Amy Solorzano CT TECH-C Work Phone: [facility] 01-04-2025 10:00-0400 Heart rate 73 /min Amy Solorzano CT TECH-C Work Phone: [facility] 01-04-2025 10:00-0400 Respiratory rate 13 /min Amy Solorzano CT TECH-C Work Phone: 0(411)777-021695 [place] [address] 01-04-2025 10:00-0400 SaO2% (BldA) [Mass fraction] 97 % Amy Solorzano CT TECH-C Work Phone: 4(937)567-439395 [place] [address] 01-04-2025 10:00-0400 Systolic blood pressure 147 mm[Hg] Amy Solorzano CT TECH-C Work Phone: [facility] 01-04-2025 05:55-0400 Body height 167.[address] TECH-C Work Phone: 5(679)294-655995 [place] [address] 01-04-2025 05:55-0400 Body mass index (BMI) [Ratio] 36.8 kg/m2 Amy Solorzano CT TECH-C Work Phone: [facility] 01-04-2025 05:55-0400 Body temperature 98.5 [degF] Amy Solorzano CT TECH-C Work Phone: 4(120)885-036421 [place] [address] 01-04-2025 05:55-0400 Body weight 103.[address] TECH-C Work Phone: 2(521)975-381221 [place] [address] 01-02-2025 10:43-0400 Body temperature 97.8 [degF] Amy Solorzano CT TECH-C Work Phone: 5(248)592-765921 [place] [address] 01-02-2025 10:43-0400 Diastolic blood pressure 89 mm[Hg] Amy Solorzano CT TECH-C Work Phone: 7(935)035-365921 [place] [address] 01-02-2025 10:43-0400 Heart rate 85 /min Amy Solorzano CT TECH-C Work Phone: 8(173)416-697521 [place] [address] 01-02-2025 10:43-0400 Respiratory rate 18 /min Amy Solorzano CT TECH-C Work Phone: 6(252)601-555521 [place] [address] 01-02-2025 10:43-0400 SaO2% (BldA) [Mass fraction] 99 % Amy Solorzano CT TECH-C Work Phone: 0(856)586-487821 [place] [address] 01-02-2025 10:43-0400 Systolic blood pressure 159 mm[Hg] Amy Solorzano CT TECH-C Work Phone: 1(959)990-147921 [place] [address] 01-02-2025 06:57-0400 Body height 167.[address] TECH-C Work Phone: 6(527)861-976921 [place] [address] 01-02-2025 06:57-0400 Body mass index (BMI) [Ratio] 38 kg/m2 Amy Solorzano CT TECH-C Work Phone: 0(624)110-277021 [place] [address] 01-02-2025 06:57-0400 Body weight 107.[address] TECH-C Work Phone: 0(990)659-144821 [place] [address] 01-01-2025 13:20-0400 Diastolic blood pressure 87 mm[Hg] Amy Solorzano CT TECH-C Work Phone: 0(894)484-283721 [place] [address] 01-01-2025 13:20-0400 Heart rate 100 /min Amy Solorzano CT TECH-C Work Phone: 7(453)911-616121 [place] [address] 01-01-2025 13:20-0400 Respiratory rate 20 /min Amy Solor[address]ano CT TECH-C Work Phone: 0(039)258-711895 [place] [address] 01-01-2025 13:20-0400 SaO2% (BldA) [Mass fraction] 98 % Amykeiko Solorzano CT TECH-C Work Phone: 8(158)930-872821 [place] [address] 01-01-2025 13:20-0400 Systolic blood pressure 103 mm[Hg] Amy Solorzano CT TECH-C Work Phone: 1(950)049-854521 [place] [address] 01-01-2025 12:00-0400 Body temperature 98.1 [degF] Amy Solorzano CT TECH-C Work Phone: 4(399)743-311821 [place] [address] 01-01-2025 04:10-0400 Body mass index (BMI) [Ratio] 38.9 kg/m2 Amy Solorzano CT TECH-C Work Phone: 0(523)919-487821 [place] [address] 01-01-2025 04:10-0400 Body weight 109.[address] TECH-C Work Phone: 9(381)196-331421 [place] [address] 12-31-2024 23:46-0400 Body height 167.[address] TECH-C Work Phone: 4(364)732-729421 [place] [address] 12-31-2024 23:18-0400 Body temperature 98.3 [degF] Amy Solorzano CT TECH-C Work Phone: 1(115)277-888421 [place] [address] 12-31-2024 23:18-0400 Diastolic blood pressure 103 mm[Hg] Amy Solorzano CT TECH-C Work Phone: 0(142)634-746921 [place] [address] 12-31-2024 23:18-0400 Heart rate 88 /min Amykeiko Solor[address]ano CT TECH-C Work Phone: 1(672)189-987921 [place] [address] 12-31-2024 23:18-0400 Respiratory rate 16 /min Amy Solor[address]ano CT TECH-C Work Phone: 7(775)880-114421 [place] [address] 12-31-2024 23:18-0400 SaO2% (BldA) [Mass fraction] 99 % Amy Solorzano CT TECH-C Work Phone: 0(031)271-268721 [place] [address] 12-31-2024 23:18-0400 Systolic blood pressure 156 mm[Hg] Amy Solorzano CT TECH-C Work Phone: 7(756)568-674321 [place] [address] 12-31-2024 18:33-0400 Body height 167.[address] TECH-C Work Phone: 9(395)394-161121 [place] [address] 12-31-2024 18:33-0400 Body mass index (BMI) [Ratio] 38.4 kg/m2 Amy Solorzano CT TECH-C Work Phone: 6(033)919-126521 [place] [address] 12-31-2024 18:33-0400 Body weight 107.[address] TECH-C Work Phone: 7(454)788-789921 [place] [address] 12-31-2024 08:00-0400 Body temperature 98.2 [degF] Amy Solorzano CT TECH-C Work Phone: 1(221)889-793021 [place] [address] 12-31-2024 08:00-0400 Diastolic blood pressure 81 mm[Hg] Amy Solorzano CT TECH-C Work Phone: 5(584)315-786121 [place] [address] 12-31-2024 08:00-0400 Heart rate 73 /min Amykeiko Solor[address]ano CT TECH-C Work Phone: 7(824)153-753221 [place] [address] 12-31-2024 08:00-0400 Respiratory rate 23 /min Amy Solorzano CT TECH-C Work Phone: 9(111)712-958721 [place] [address] 12-31-2024 08:00-0400 SaO2% (BldA) [Mass fraction] 98 % Amy Solorzano CT TECH-C Work Phone: 3(897)645-127121 [place] [address] 12-31-2024 08:00-0400 Systolic blood pressure 123 mm[Hg] Amy Solorzano CT TECH-C Work Phone: 8(364)942-169921 [place] [address] 12-31-2024 05:29-0400 Body mass index (BMI) [Ratio] 39.2 kg/m2 Amy Solorzano CT TECH-C Work Phone: 3(481)668-734921 [place] [address] 12-31-2024 05:29-0400 Body weight 110.[address] TECH-C Work Phone: 0(114)743-086221 [place] [address] 12-30-2024 13:37-0400 Body height 167.[address] TECH-C Work Phone: 4(380)922-947221 [place] [address] 12-30-2024 12:35-0400 Body temperature 97.4 [degF] Amykeiko Solorzano CT TECH-C Work Phone: 2(830)161-892121 [place] [address] 12-30-2024 12:35-0400 Diastolic blood pressure 93 mm[Hg] Amykeiko Solorzano CT TECH-C Work Phone: 0(647)201-675421 [place] [address] 12-30-2024 12:35-0400 Heart rate 94 /min Amykeiko Solor[address]ano CT TECH-C Work Phone: 1(227)807-013421 [place] [address] 12-30-2024 12:35-0400 Respiratory rate 18 /min Amykeiko Solor[address]ano CT TECH-C Work Phone: 6(577)031-513321 [place] [address] 12-30-2024 12:35-0400 SaO2% (BldA) [Mass fraction] 96 % Amykeiko Solorzano CT TECH-C Work Phone: 3(756)570-770521 [place] [address] 12-30-2024 12:35-0400 Systolic blood pressure 126 mm[Hg] Amykeiko Solorzano CT TECH-C Work Phone: 7(201)193-943821 [place] [address] 12-30-2024 10:25-0400 Body height 167.[address] TECH-C Work Phone: 5(209)456-888121 [place] [address] 12-30-2024 10:25-0400 Body mass index (BMI) [Ratio] 37.7 kg/m2 Amykeiko Solorzano CT TECH-C Work Phone: 5(423)314-217321 [place] [address] 12-30-2024 10:25-0400 Body weight 106 [address] TECH-C Work Phone: 9(683)398-625621 [place] [address] 12-13-2024 08:30-0400 Body height 167.[address] TECH-C Work Phone: 6(441)810-831321 [place] [address] 12-13-2024 08:30-0400 Body mass index (BMI) [Ratio] 39.2 kg/m2 Amy Solorzano CT TECH-C Work Phone: 2(085)902-030521 [place] [address] 12-13-2024 08:30-0400 Body weight 110.[address] TECH-C Work Phone: 3(045)224-204895 [place] [address] 12-13-2024 08:30-0400 Diastolic blood pressure 97 mm[Hg] Amy Solorzano CT TECH-C Work Phone: 9(362)229-641121 [place] [address] 12-13-2024 08:30-0400 Heart rate 93 /min Amy Solorzano CT TECH-C Work Phone: 7(686)539-672721 [place] [address] 12-13-2024 08:30-0400 Respiratory rate 19 /min Amy Solorzano CT TECH-C Work Phone: 4(450)957-775821 [place] [address] 12-13-2024 08:30-0400 SaO2% (BldA) [Mass fraction] 97 % Amy Solorzano CT TECH-C Work Phone: 2(305)124-932721 [place] [address] 12-13-2024 08:30-0400 Systolic blood pressure 138 mm[Hg] Amy Solorzano CT TECH-C Work Phone: 3(908)766-880521 [place] [address] 11-28-2024 13:00-0400 Body temperature 98 [degF] Amy Solorzano CT TECH-C Work Phone: 6(401)214-954321 [place] [address] 11-28-2024 13:00-0400 Diastolic blood pressure 96 mm[Hg] Amy Solorzano CT TECH-C Work Phone: 1(937)768-449521 [place] [address] 11-28-2024 13:00-0400 Heart rate 60 /min Amy Solorzano CT TECH-C Work Phone: 1(665)344-358921 [place] [address] 11-28-2024 13:00-0400 SaO2% (BldA) [Mass fraction] 99 % Amy Solorzano CT TECH-C Work Phone: 6(421)054-818121 [place] [address] 11-28-2024 13:00-0400 Systolic blood pressure 156 mm[Hg] Amy Solorzano CT TECH-C Work Phone: 5(438)631-551321 [place] [address] 11-28-2024 08:25-0400 Body temperature 98.1 [degF] Amy Solorzano CT TECH-C Work Phone: 8(236)209-599221 [place] [address] 11-28-2024 08:25-0400 Diastolic blood pressure 84 mm[Hg] Amy Solorzano CT TECH-C Work Phone: 5(579)938-502895 [place] [address] 11-28-2024 08:25-0400 Heart rate 75 /min Amy Solorzano CT TECH-C Work Phone: 4(534)739-244921 [place] [address] 11-28-2024 08:25-0400 Respiratory rate 18 /min Amy Solorzano CT TECH-C Work Phone: 5(508)651-415321 [place] [address] 11-28-2024 08:25-0400 SaO2% (BldA) [Mass fraction] 97 % Amy Solorzano CT TECH-C Work Phone: 9(130)103-630021 [place] [address] 11-28-2024 08:25-0400 Systolic blood pressure 154 mm[Hg] Amy Solorzano CT TECH-C Work Phone: 7(571)124-244221 [place] [address] 11-27-2024 13:47-0400 Body height 167.[address] TECH-C Work Phone: 7(368)128-065421 [place] [address] 11-27-2024 13:47-0400 Body weight 110.[address] TECH-C Work Phone: 5(892)405-182521 [place] [address] 11-25-2024 14:54-0400 Body mass index (BMI) [Ratio] 39.4 kg/m2 Amy Solorzano CT TECH-C Work Phone: 0(039)052-592221 [place] [address] 11-25-2024 14:00-0400 Diastolic blood pressure 91 mm[Hg] Amy Solorzano CT TECH-C Work Phone: 9(144)355-333121 [place] [address] 11-25-2024 14:00-0400 Heart rate 91 /min Amy Solorzano CT TECH-C Work Phone: 4(331)630-299521 [place] [address] 11-25-2024 14:00-0400 Respiratory rate 18 /min Amy Solorzano CT TECH-C Work Phone: 6(455)700-203521 [place] [address] 11-25-2024 14:00-0400 SaO2% (BldA) [Mass fraction] 95 % Amy Solorzano CT TECH-C Work Phone: 8(457)180-605321 [place] [address] 11-25-2024 14:00-0400 Systolic blood pressure 129 mm[Hg] Amy Solorzano CT TECH-C Work Phone: [facility] 11-25-2024 11:00-0400 Body temperature 97.6 [degF] Amy Solorzano CT TECH-C Work Phone: [facility] 11-25-2024 08:48-0400 Body height 167.[address] TECH-C Work Phone: [facility] 11-25-2024 08:48-0400 Body mass index (BMI) [Ratio] 40.9 kg/m2 Amy Solorzano CT TECH-C Work Phone: [facility] 11-25-2024 08:48-0400 Body weight 115.[address] TECH-C Work Phone: [facility] 07-03-2024 12:26-0500 Body mass index (BMI) [Ratio] 40.02 kg/m2 Krislyn Aberegg PA Work Phone: [facility] 07-03-2024 12:26-0500 Body temperature 97 [degF] Krislyn Aberegg PA Work Phone: [facility] 07-03-2024 12:26-0500 Body weight 115.9 kg Krislyn Aberegg PA Work Phone: [facility] 07-03-2024 12:26-0500 Diastolic blood pressure 90 mm[Hg] Krislyn Aberegg PA Work Phone: [facility] 07-03-2024 12:26-0500 Heart rate 104 /min Krislyn Aberegg PA Work Phone: [facility] 07-03-2024 12:26-0500 Respiratory rate 16 /min Krislyn Aberegg PA Work Phone: [facility] 07-03-2024 12:26-0500 SaO2% (BldA) [Mass fraction] 100 % Krislyn Aberegg PA Work Phone: [facility] 07-03-2024 12:26-0500 Systolic blood pressure 122 mm[Hg] Krislyn Aberegg PA Work Phone: [facility] 06-26-2024 10:36-0500 Body mass index (BMI) [Ratio] 39.95 kg/m2 Frantz Clutter PA-C Work Phone: [facility] 06-26-2024 10:36-0500 Body temperature 97.39 [degF] Frantz Clutter PA-C Work Phone: [facility] 06-26-2024 10:36-0500 Body weight 115.7 kg Frantz Clutter PA-C Work Phone: [facility] 06-26-2024 10:36-0500 Diastolic blood pressure 78 mm[Hg] Frantz Clutter PA-C Work Phone: [facility] 06-26-2024 10:36-0500 Heart rate 117 /min Frantz Clutter PA-C Work Phone: [facility] 06-26-2024 10:36-0500 Respiratory rate 18 /min Frantz Clutter PA-C Work Phone: [facility] 06-26-2024 10:36-0500 SaO2% (BldA) [Mass fraction] 97 % Frantz Clutter PA-C Work Phone: [facility] 06-26-2024 10:36-0500 Systolic blood pressure 122 mm[Hg] Frantz Clutter PA-C Work Phone: [facility] 07-23-2023 11:30-0500 Body temperature 96.9 [degF] No Primary Care Physician [facility] 07-23-2023 11:30-0500 Diastolic blood pressure 82 mm[Hg] No Primary Care Physician [facility] 07-23-2023 11:30-0500 Heart rate 80 /min No Primary Care Physician [facility] 07-23-2023 11:30-0500 Respiratory rate 16 /min No Primary Care Physician [facility] 07-23-2023 11:30-0500 SaO2% (BldA) [Mass fraction] 99 % No Primary Care Physician [facility] 07-23-2023 11:30-0500 Systolic blood pressure 117 mm[Hg] No Primary Care Physician [facility] 07-23-2023 11:05-0500 Inhaled oxygen flow rate 4 L/min No Primary Care Physician [facility] 07-23-2023 08:34-0500 Body height 167.64 cm No Primary Care Physician [facility] 07-23-2023 08:34-0500 Body mass index (BMI) [Ratio] 32.5 kg/m2 No Primary Care Physician [facility] 07-23-2023 08:34-0500 Body weight 91.62 kg No Primary Care Physician [facility] 07-12-2023 10:13-0500 Body mass index (BMI) [Ratio] 32.1 kg/m2 No Primary Care Physician [facility] 07-12-2023 10:13-0500 Body temperature 98.2 [degF] No Primary Care Physician [facility] 07-12-2023 10:13-0500 Body weight 90.4 kg No Primary Care Physician [facility] 07-12-2023 10:13-0500 Diastolic blood pressure 90 mm[Hg] No Primary Care Physician [facility] 07-12-2023 10:13-0500 Heart rate 98 /min No Primary Care Physician [facility] 07-12-2023 10:13-0500 Respiratory rate 14 /min No Primary Care Physician [facility] 07-12-2023 10:13-0500 SaO2% (BldA) [Mass fraction] 100 % No Primary Care Physician [facility] 07-12-2023 10:13-0500 Systolic blood pressure 124 mm[Hg] No Primary Care Physician [facility] 07-02-2023 09:17-0500 Diastolic blood pressure 94 mm[Hg] No Primary Care Physician [facility] 07-02-2023 09:17-0500 Systolic blood pressure 142 mm[Hg] No Primary Care Physician [facility] 07-02-2023 09:14-0500 Body height 167.64 cm No Primary Care Physician [facility] 07-02-2023 09:14-0500 Body temperature 96.4 [degF] No Primary Care Physician [facility] 07-02-2023 09:14-0500 Heart rate 100 /min No Primary Care Physician [facility] 07-02-2023 09:14-0500 Respiratory rate 16 /min No Primary Care Physician [facility] 07-02-2023 09:14-0500 SaO2% (BldA) [Mass fraction] 100 % No Primary Care Physician [facility] 07-01-2023 10:07-0500 Body temperature 97 [degF] [facility] SALES REPRESENTATIVE.VOTING MACHINE REPAIRER Work Phone: [facility] 07-01-2023 10:07-0500 Body weight 93.44 kg [facility] SPECIALTY SALES REPRESENTATIVE.VOTING MACHINE REPAIRER Work Phone: [facility] 07-01-2023 10:07-0500 Diastolic blood pressure 82 mm[Hg] Andres [place]bury SPECIALTY SALES REPRESENTATIVE.VOTING MACHINE REPAIRER Work Phone: [facility] 07-01-2023 10:07-0500 Heart rate 91 /min Andres Pendlebury SPECIALTY SALES REPRESENTATIVE.VOTING MACHINE REPAIRER Work Phone: [facility] 07-01-2023 10:07-0500 Respiratory rate 18 /min Andres Pendlebury SPECIALTY SALES REPRESENTATIVE.VOTING MACHINE REPAIRER Work Phone: [facility] 07-01-2023 10:07-0500 SaO2% (BldA) [Mass fraction] 100 % [facility] SPECIALTY SALES REPRESENTATIVE.VOTING MACHINE REPAIRER Work Phone: [facility] 07-01-2023 10:07-0500 Systolic blood pressure 117 mm[Hg] [facility] SPECIALTY SALES REPRESENTATIVE.VOTING MACHINE REPAIRER Work Phone: [facility] 06-30-2023 13:41-0500 Heart rate 72 /min No Primary Care Physician [facility] 06-30-2023 13:41-0500 Respiratory rate 16 /min No Primary Care Physician [facility] 06-30-2023 13:41-0500 SaO2% (BldA) [Mass fraction] 98 % No Primary Care Physician [facility] 06-30-2023 09:24-0500 Body mass index (BMI) [Ratio] 34 kg/m2 No Primary Care Physician [facility] 06-30-2023 09:24-0500 Body weight 95.7 kg No Primary Care Physician [facility] 06-30-2023 08:22-0500 Body temperature 98 [degF] No Primary Care Physician [facility] 06-30-2023 08:22-0500 Diastolic blood pressure 110 mm[Hg] No Primary Care Physician [facility] 06-30-2023 08:22-0500 Systolic blood pressure 170 mm[Hg] No Primary Care Physician [facility] 06-28-2023 09:17-0500 Body height 167.64 cm No Primary Care Physician [facility] 06-28-2023 09:17-0500 Body mass index (BMI) [Ratio] 33.6 kg/m2 No Primary Care Physician [facility] 06-28-2023 09:17-0500 Body temperature 98.2 [degF] No Primary Care Physician [facility] 06-28-2023 09:17-0500 Body weight 94.5 kg No Primary Care Physician [facility] 06-28-2023 09:17-0500 Diastolic blood pressure 105 mm[Hg] No Primary Care Physician [facility] 06-28-2023 09:17-0500 Heart rate 82 /min No Primary Care Physician [facility] 06-28-2023 09:17-0500 Respiratory rate 14 /min No Primary Care Physician [facility] 06-28-2023 09:17-0500 SaO2% (BldA) [Mass fraction] 99 % No Primary Care Physician [facility] 06-28-2023 09:17-0500 Systolic blood pressure 154 mm[Hg] No Primary Care Physician [facility] 06-27-2023 05:50-0500 Body height 167.64 cm No Primary Care Physician [facility] 06-27-2023 05:50-0500 Body mass index (BMI) [Ratio] 34 kg/m2 No Primary Care Physician [facility] 06-27-2023 05:50-0500 Body temperature 98.6 [degF] No Primary Care Physician [facility] 06-27-2023 05:50-0500 Body weight 95.7 kg No Primary Care Physician [facility] 06-27-2023 05:50-0500 Diastolic blood pressure 98 mm[Hg] No Primary Care Physician [facility] 06-27-2023 05:50-0500 Heart rate 85 /min No Primary Care Physician [facility] 06-27-2023 05:50-0500 Respiratory rate 16 /min No Primary Care Physician [facility] 06-27-2023 05:50-0500 SaO2% (BldA) [Mass fraction] 99 % No Primary Care Physician [facility] 06-27-2023 05:50-0500 Systolic blood pressure 163 mm[Hg] No Primary Care Physician [facility] 06-26-2023 17:04-0500 Heart rate 74 /min No Primary Care Physician [facility] 06-26-2023 17:04-0500 Respiratory rate 18 /min No Primary Care Physician [facility] 06-26-2023 17:04-0500 SaO2% (BldA) [Mass fraction] 97 % No Primary Care Physician [facility] 06-26-2023 11:30-0500 Body height 167.64 cm No Primary Care Physician [facility] [facility] 11:30-0500 Body mass index (BMI) [Ratio] 34.1 kg/m2 No Primary Care Physician [facility] 06-26-2023 11:30-0500 Body temperature 97 [degF] No Primary Care Physician [facility] 06-26-2023 11:30-0500 Body weight 95.98 kg No Primary Care Physician [facility] 06-26-2023 11:30-0500 Diastolic blood pressure 120 mm[Hg] No Primary Care Physician [facility] 06-26-2023 11:30-0500 Systolic blood pressure 135 mm[Hg] No Primary Care Physician [facility] 06-25-2023 12:33-0500 Diastolic blood pressure 69 mm[Hg] No Primary Care Physician [facility] 06-25-2023 12:33-0500 Heart rate 82 /min No Primary Care Physician [facility] 06-25-2023 12:33-0500 Respiratory rate 16 /min No Primary Care Physician [facility] 06-25-2023 12:33-0500 SaO2% (BldA) [Mass fraction] 100 % No Primary Care Physician [facility] 06-25-2023 12:33-0500 Systolic blood pressure 124 mm[Hg] No Primary Care Physician [facility] 06-25-2023 09:27-0500 Body height 168 cm No Primary Care Physician [facility] 06-25-2023 09:27-0500 Body mass index (BMI) [Ratio] 32.1 kg/m2 No Primary Care Physician [facility] 06-25-2023 09:27-0500 Body temperature 96.5 [degF] No Primary Care Physician [facility] 06-25-2023 09:27-0500 Body weight 90.71 kg No Primary Care Physician [facility] 05-09-2023 14:02-0400 Body temperature 98.4 [degF] No Primary Care Physician [facility] 05-09-2023 14:02-0400 Diastolic blood pressure 102 mm[Hg] No Primary Care Physician [facility] 05-09-2023 14:02-0400 Heart rate 74 /min No Primary Care Physician [facility] 05-09-2023 14:02-0400 Respiratory rate 18 /min No Primary Care Physician [facility] 05-09-2023 14:02-0400 SaO2% (BldA) [Mass fraction] 100 % No Primary Care Physician [facility] 05-09-2023 14:02-0400 Systolic blood pressure 177 mm[Hg] No Primary Care Physician [facility] 05-09-2023 13:32-0400 Body temperature 98.4 [degF] [facility] Work Phone: [facility] 05-09-2023 13:32-0400 Diastolic blood pressure 121 mm[Hg] [facility] Work Phone: [facility] 05-09-2023 13:32-0400 Heart rate 74 /min [facility] Work Phone: [facility] 05-09-2023 13:32-0400 Respiratory rate 18 /min [facility] Work Phone: [facility] 05-09-2023 13:32-0400 SaO2% (BldA) [Mass fraction] 100 % [facility] Work Phone: [facility] 05-09-2023 13:32-0400 Systolic blood pressure 177 mm[Hg] [facility] Work Phone: [facility] 05-07-2023 11:35-0400 Body height 167.64 cm [facility] Work Phone: 9(869)985-370021 [place] [address] 05-07-2023 11:35-0400 Body mass index (BMI) [Ratio] 33.5 kg/m2 [facility] Work Phone: 2(907)611-850921 [place] [address] 05-07-2023 11:35-0400 Body weight 94.2 kg [facility] Work Phone: 7(796)641-913621 [place] [address] 05-04-2023 15:23-0400 Body height 167.64 cm [facility] Work Phone: 3(907)657-783221 [place] [address] 05-04-2023 15:23-0400 Body mass index (BMI) [Ratio] 33.5 kg/m2 [facility] Work Phone: 8(295)069-727521 [place] [address] 05-04-2023 15:23-0400 Body temperature 97.4 [degF] [facility] Work Phone: 6(935)077-874321 [place] [address] 05-04-2023 15:23-0400 Body weight 94.2 kg [facility] Work Phone: 6(236)046-327121 [place] [address] 05-04-2023 15:23-0400 Diastolic blood pressure 69 mm[Hg] [facility] Work Phone: 3(327)104-635021 [place] [address] 05-04-2023 15:23-0400 Heart rate 84 /min [facility] Work Phone: 9(019)419-491821 [place] [address] 05-04-2023 15:23-0400 Inhaled oxygen flow rate 96 L/min [facility] Work Phone: 6(557)036-213521 [place] [address] 05-04-2023 15:23-0400 Respiratory rate 16 /min [facility] Work Phone: 8(921)885-155021 [place] [address] 05-04-2023 15:23-0400 Systolic blood pressure 134 mm[Hg] [facility] Work Phone: 0(127)957-908621 [place] [address] 05-04-2023 14:51-0400 SaO2% (BldA) [Mass fraction] 97 % [facility] Work Phone: 6(312)734-370021 [place] [address] 04-15-2023 13:43-0400 Diastolic blood pressure 58 mm[Hg] [facility] Work Phone: 3(607)688-745721 [place] [address] 04-15-2023 13:43-0400 Heart rate 72 /min [facility] Work Phone: 9(544)266-135521 [place] [address] 04-15-2023 13:43-0400 Respiratory rate 16 /min [facility] Work Phone: 2(459)723-500421 [place] [address] 04-15-2023 13:43-0400 SaO2% (BldA) [Mass fraction] 99 % [facility] Work Phone: 8(675)439-284121 [place] [address] 04-15-2023 13:43-0400 Systolic blood pressure 122 mm[Hg] [facility] Work Phone: 9(507)799-138021 [place] [address] 04-15-2023 11:17-0400 Body mass index (BMI) [Ratio] 29.3 kg/m2 [facility] Work Phone: 8(679)166-183321 [place] [address] 04-15-2023 11:17-0400 Body temperature 97 [degF] [facility] Work Phone: 6(922)108-292821 [place] [address] 04-15-2023 11:17-0400 Body weight 82.4 kg [facility] Work Phone: 1(605)657-397621 [place] [address] 04-14-2023 11:51-0400 Body mass index (BMI) [Ratio] 32.3 kg/m2 [facility] Work Phone: 2(824)271-346821 [place] [address] 04-14-2023 11:51-0400 Body temperature 97.2 [degF] [facility] Work Phone: 0(113)570-741421 [place] [address] 04-14-2023 11:51-0400 Body weight 90.71 kg [facility] Work Phone: 6(476)480-502721 [place] [address] 04-14-2023 11:51-0400 Diastolic blood pressure 92 mm[Hg] [facility] Work Phone: 7(965)417-773221 [place] [address] 04-14-2023 11:51-0400 Heart rate 102 /min [facility] Work Phone: 5(987)123-367021 [place] [address] 04-14-2023 11:51-0400 Respiratory rate 24 /min [facility] Work Phone: 7(364)347-483621 [place] [address] 04-14-2023 11:51-0400 SaO2% (BldA) [Mass fraction] 100 % [facility] Work Phone: 1(133)313-780321 [place] [address] 04-14-2023 11:51-0400 Systolic blood pressure 131 mm[Hg] [facility] Work Phone: 9(062)463-219421 [place] [address] 04-13-2023 10:36-0400 Diastolic blood pressure 78 mm[Hg] [facility] Work Phone: 0(256)165-837421 [place] [address] 04-13-2023 10:36-0400 Heart rate 64 /min [facility] Work Phone: 6(577)198-907921 [place] [address] 04-13-2023 10:36-0400 Respiratory rate 14 /min [facility] Work Phone: 6(745)476-031021 [place] [address] 04-13-2023 10:36-0400 SaO2% (BldA) [Mass fraction] 98 % [facility] Work Phone: 2(302)684-768821 [place] [address] 04-13-2023 10:36-0400 Systolic blood pressure 108 mm[Hg] [facility] Work Phone: 4(980)890-965421 [place] [address] 04-13-2023 08:59-0400 Body mass index (BMI) [Ratio] 32.3 kg/m2 [facility] Work Phone: 1(131)101-239621 [place] [address] 04-13-2023 08:59-0400 Body temperature 95.9 [degF] [facility] Work Phone: 9(672)653-730821 [place] [address] 04-13-2023 08:59-0400 Body weight 90.71 kg [facility] Work Phone: 2(846)027-674121 [place] [address] 03-06-2023 08:15-0400 Body height 167.64 cm [facility] Work Phone: 1(916)828-144821 [place] [address] 03-06-2023 08:15-0400 Body mass index (BMI) [Ratio] 32.5 kg/m2 [facility] Work Phone: 5(748)183-888821 [place] [address] 03-06-2023 08:15-0400 Body temperature 97 [degF] [facility] Work Phone: 5(000)674-488695 [place] [address] 03-06-2023 08:15-0400 Body weight 91.3 kg [facility] Work Phone: 8(929)360-967295 [place] [address] 03-06-2023 08:15-0400 Diastolic blood pressure 113 mm[Hg] [facility] Work Phone: 0(090)385-934841 [address] 03-06-2023 08:15-0400 Heart rate 100 /min [facility] Work Phone: 6(620)057-716195 [place] [address] 03-06-2023 08:15-0400 Respiratory rate 14 /min [facility] Work Phone: 5(121)069-367821 [place] [address] 03-06-2023 08:15-0400 SaO2% (BldA) [Mass fraction] 100 % [facility] Work Phone: 5(764)240-534795 [place] [address] 03-06-2023 08:15-0400 Systolic blood pressure 153 mm[Hg] [facility] Work Phone: 9(593)511-852095 [place] [address] 03-01-2023 10:40-0400 Body height 170.2 cm Dewayne Doran MD Work Phone: [facility] 03-01-2023 10:40-0400 Body temperature 98.2 [degF] Dewayne Doran MD Work Phone: [facility] 03-01-2023 10:40-0400 Body weight 90.1 kg Dewayne Doran MD Work Phone: [facility] 03-01-2023 10:40-0400 Diastolic blood pressure 87 mm[Hg] Dewayne Doran MD Work Phone: [facility] 03-01-2023 10:40-0400 Heart rate 109 /min Dewayne Doran MD Work Phone: [facility] 03-01-2023 10:40-0400 SaO2% (BldA) [Mass fraction] 97 % Dewayne Doran MD Work Phone: [facility] 03-01-2023 10:40-0400 Systolic blood pressure 119 mm[Hg] Dewayne Doran MD Work Phone: [facility] 02-26-2023 03:54-0400 Diastolic blood pressure 63 mm[Hg] [facility] Work Phone: 8(063)939-876421 [place] [address] 02-26-2023 03:54-0400 Heart rate 68 /min [facility] Work Phone: 0(492)060-169921 [place] [address] 02-26-2023 03:54-0400 Respiratory rate 15 /min [facility] Work Phone: 7(430)896-596321 [place] [address] 02-26-2023 03:54-0400 SaO2% (BldA) [Mass fraction] 97 % [facility] Work Phone: 3(862)379-797521 [place] [address] 02-26-2023 03:54-0400 Systolic blood pressure 107 mm[Hg] [facility] Work Phone: 5(015)782-229721 [place] [address] 02-25-2023 23:59-0400 Body height 167.64 cm [facility] Work Phone: 9(660)311-571021 [place] [address] 02-25-2023 23:59-0400 Body mass index (BMI) [Ratio] 31.8 kg/m2 [facility] Work Phone: 0(054)369-830321 [place] [address] 02-25-2023 23:59-0400 Body temperature 98 [degF] [facility] Work Phone: 3(091)595-864521 [place] [address] 02-25-2023 23:59-0400 Body weight 89.44 kg [facility] Work Phone: 6(627)257-871621 [place] [address] 02-24-2023 12:55-0400 Diastolic blood pressure 93 mm[Hg] [facility] Work Phone: 7(981)553-484021 [place] [address] 02-24-2023 12:55-0400 Heart rate 85 /min [facility] Work Phone: 1(710)251-238521 [place] [address] 02-24-2023 12:55-0400 Respiratory rate 18 /min [facility] Work Phone: 7(732)875-489321 [place] [address] 02-24-2023 12:55-0400 SaO2% (BldA) [Mass fraction] 96 % [facility] Work Phone: [facility] 02-24-2023 12:55-0400 Systolic blood pressure 124 mm[Hg] [facility] Work Phone: [facility] 02-24-2023 11:32-0400 Body mass index (BMI) [Ratio] 32.4 kg/m2 [facility] Work Phone: [facility] 02-24-2023 11:32-0400 Body temperature 97.8 [degF] [facility] Work Phone: [facility] 02-24-2023 11:32-0400 Body weight 91.22 kg [facility] Work Phone: [facility] 02-23-2023 09:59-0400 Body temperature 97.11 [degF] Pilar Magdaleno APRN.VOTING MACHINE REPAIRER Work Phone: [facility] 02-23-2023 09:59-0400 Body weight 91.17 kg Pilar Magdaleno APRN.VOTING MACHINE REPAIRER Work Phone: [facility] 02-23-2023 09:59-0400 Diastolic blood pressure 74 mm[Hg] Pilar Magdaleno APRN.VOTING MACHINE REPAIRER Work Phone: [facility] 02-23-2023 09:59-0400 Heart rate 88 /min Pilar Magdaleno APRN.VOTING MACHINE REPAIRER Work Phone: [facility] 02-23-2023 09:59-0400 Respiratory rate 16 /min Pilar Magdaleno APRN.VOTING MACHINE REPAIRER Work Phone: [facility] 02-23-2023 09:59-0400 Systolic blood pressure 118 mm[Hg] Pilar Magdaleno APRN.VOTING MACHINE REPAIRER Work Phone: [facility] 02-11-2023 15:17-0400 Body temperature 97.88 [degF] ROWENA SILVERMAN APRN-VOTING MACHINE REPAIRER [facility] 02-11-2023 15:17-0400 Diastolic Blood Pressure Non-Invasive 86 1 ROWENA SILVERMAN APRN-VOTING MACHINE REPAIRER [facility] 02-11-2023 15:17-0400 Heart rate 67 /min ROWENA HERRERA SPECIALTY SALES REPRESENTATIVE-VOTING MACHINE REPAIRER [facility] 02-11-2023 15:17-0400 Reason For Taking VItal Signs ROWENA HERRERA SPECIALTY SALES REPRESENTATIVE-VOTING MACHINE REPAIRER [facility] 02-11-2023 15:17-0400 Systolic Blood Pressure Non-Invasive 137 1 ROWENA HERRERA SPECIALTY SALES REPRESENTATIVE-VOTING MACHINE REPAIRER [facility] 02-11-2023 11:58-0400 Body temperature 97.7 [degF] ROWENA HERRERA SPECIALTY SALES REPRESENTATIVE-VOTING MACHINE REPAIRER [facility] 02-11-2023 11:58-0400 Diastolic Blood Pressure Non-Invasive 94 1 ROWENA HERRERA SPECIALTY SALES REPRESENTATIVE-VOTING MACHINE REPAIRER [facility] 02-11-2023 11:58-0400 Heart rate 68 /min ROWENA HERRERA SPECIALTY SALES REPRESENTATIVE-VOTING MACHINE REPAIRER [facility] 02-11-2023 11:58-0400 Reason For Taking VItal Signs ROWENA HERRERA SPECIALTY SALES REPRESENTATIVE-VOTING MACHINE REPAIRER [facility] 02-11-2023 11:58-0400 Respiratory rate 18 /min ROWENA SILVERMAN SPECIALTY SALES REPRESENTATIVE-VOTING MACHINE REPAIRER [facility] 02-11-2023 11:58-0400 Systolic Blood Pressure Non-Invasive 138 1 ROWENA HERRERA SPECIALTY SALES REPRESENTATIVE-VOTING MACHINE REPAIRER [facility] 02-11-2023 07:52-0400 Body temperature 98.06 [degF] ROWENA SILVERMAN SPECIALTY SALES REPRESENTATIVE-VOTING MACHINE REPAIRER [facility] 02-11-2023 07:52-0400 Diastolic Blood Pressure Non-Invasive 82 1 ROWENA SILVERMAN SPECIALTY SALES REPRESENTATIVE-VOTING MACHINE REPAIRER [facility] 02-11-2023 07:52-0400 Heart rate 75 /min ROWENA SILVERMAN SPECIALTY SALES REPRESENTATIVE-VOTING MACHINE REPAIRER [facility] 02-11-2023 07:52-0400 Reason For Taking VItal Signs ROWENA SILVERMAN APRN-VOTING MACHINE REPAIRER [facility] 02-11-2023 07:52-0400 Respiratory rate 18 /min ROWENA SILVERMAN APRN-VOTING MACHINE REPAIRER [facility] 02-11-2023 07:52-0400 Systolic Blood Pressure Non-Invasive 127 1 ROWENA SILVERMAN SPECIALTY SALES REPRESENTATIVE-VOTING MACHINE REPAIRER [facility] 02-11-2023 05:25-0400 Respiratory rate 18 /min ROWENA SILVERMAN SPECIALTY SALES REPRESENTATIVE-VOTING MACHINE REPAIRER [facility] 02-11-2023 01:49-0400 Body height 169.9 cm ROWENA SILVERMAN SPECIALTY SALES REPRESENTATIVE-VOTING MACHINE REPAIRER [facility] 02-11-2023 01:49-0400 Body weight 94.4 kg ROEWNA SILVERMAN SPECIALTY SALES REPRESENTATIVE-VOTING MACHINE REPAIRER [facility] 02-11-2023 01:49-0400 Body weight 32.7 kg/m2 ROWENA SILVERMAN SPECIALTY SALES REPRESENTATIVE-VOTING MACHINE REPAIRER [facility] 02-10-2023 23:34-0400 Blood Pressure Cuff Size ROWENA SILVERMAN APRN-VOTING MACHINE REPAIRER [facility] 02-10-2023 23:34-0400 Blood Pressure Location ROWENA SILVERMAN SPECIALTY SALES REPRESENTATIVE-VOTING MACHINE REPAIRER [facility] 02-10-2023 23:34-0400 Blood Pressure Method ROWENA FOITH SPECIALTY SALES REPRESENTATIVE-VOTING MACHINE REPAIRER [facility] 02-10-2023 23:34-0400 Body height 167.6 cm ROWENA SILVERMAN APRN-VOTING MACHINE REPAIRER [facility] 02-10-2023 23:34-0400 Body temperature 98.24 [degF] ROWENA SILVERMAN APRN-VOTING MACHINE REPAIRER [facility] 02-10-2023 23:34-0400 Body weight 97.7 kg ROWENA SILVERMAN APRN-VOTING MACHINE REPAIRER [facility] 02-10-2023 23:34-0400 Heart rate 90 /min ROWENA SILVERMAN APRN-VOTING MACHINE REPAIRER [facility] 02-08-2023 15:46-0400 Heart rate 97 /min [facility] Work Phone: 2(157)978-448995 [place] [address] 02-08-2023 15:46-0400 Respiratory rate 21 /min [facility] Work Phone: 4(643)703-648495 [place] [address] 02-08-2023 15:46-0400 SaO2% (BldA) [Mass fraction] 96 % [facility] Work Phone: 4(683)757-537095 [place] [address] 02-08-2023 11:06-0400 Body height 167.64 cm [facility] Work Phone: 1(044)579-840995 [place] [address] 02-08-2023 11:06-0400 Body mass index (BMI) [Ratio] 34 kg/m2 [facility] Work Phone: 7(209)603-274395 [place] [address] 02-08-2023 11:06-0400 Body temperature 96 [degF] [facility] Work Phone: 4(957)931-894395 [place] [address] 02-08-2023 11:06-0400 Body weight 95.52 kg [facility] Work Phone: 9(768)295-235295 [place] [address] 02-08-2023 11:06-0400 Diastolic blood pressure 90 mm[Hg] [facility] Work Phone: 5(174)355-992821 [place] [address] 02-08-2023 11:06-0400 Systolic blood pressure 149 mm[Hg] [facility] Work Phone: 4(665)652-638421 [place] [address] 01-25-2023 11:35-0400 Body height 167.64 cm [facility] Work Phone: 4(521)876-128921 [place] [address] 01-25-2023 11:35-0400 Body mass index (BMI) [Ratio] 35.2 kg/m2 [facility] Work Phone: 3(868)871-025121 [place] [address] 01-25-2023 11:35-0400 Body temperature 96 [degF] [facility] Work Phone: 8(744)225-120021 [place] [address] 01-25-2023 11:35-0400 Body weight 98.8 kg [facility] Work Phone: 1(495)276-927521 [place] [address] 01-25-2023 11:35-0400 Diastolic blood pressure 87 mm[Hg] [facility] Work Phone: 1(375)318-236121 [place] [address] 01-25-2023 11:35-0400 Heart rate 86 /min [facility] Work Phone: 2(368)951-690421 [place] [address] 01-25-2023 11:35-0400 Respiratory rate 14 /min [facility] Work Phone: 7(251)393-870221 [place] [address] 01-25-2023 11:35-0400 SaO2% (BldA) [Mass fraction] 100 % [facility] Work Phone: 3(076)614-368921 [place] [address] 01-25-2023 11:35-0400 Systolic blood pressure 123 mm[Hg] [facility] Work Phone: 2(319)112-062721 [place] [address] 01-24-2023 12:38-0400 Diastolic blood pressure 74 mm[Hg] Stephan Ramirez MD Work Phone: [facility] 01-24-2023 12:38-0400 Heart rate 70 /min Stephan Ramirez MD Work Phone: [facility] 01-24-2023 12:38-0400 SaO2% (BldA) [Mass fraction] 98 % Stephan Ramirez MD Work Phone: [facility] 01-24-2023 12:38-0400 Systolic blood pressure 129 mm[Hg] Stephan Ramirez MD Work Phone: [facility] 01-24-2023 12:09-0400 Respiratory rate 15 /min Stephan Ramirez MD Work Phone: [facility] 01-24-2023 10:28-0400 Body height 167.6 cm Stephan Ramirez MD Work Phone: [facility] 01-24-2023 10:28-0400 Body mass index (BMI) [Ratio] 37.12 kg/m2 Stephan Ramirez MD Work Phone: [facility] 01-24-2023 10:28-0400 Body temperature 97.3 [degF] Stephan Ramirez MD Work Phone: [facility] 01-24-2023 10:28-0400 Body weight 104.33 kg Stephan Ramirez MD Work Phone: [facility] 01-15-2023 15:08-0400 Body temperature 97.9 [degF] [facility] Work Phone: [facility] 01-15-2023 15:08-0400 Diastolic blood pressure 102 mm[Hg] [facility] Work Phone: [facility] 01-15-2023 15:08-0400 Heart rate 73 /min [facility] Work Phone: [facility] 01-15-2023 15:08-0400 Respiratory rate 16 /min [facility] Work Phone: [facility] 01-15-2023 15:08-0400 SaO2% (BldA) [Mass fraction] 97 % [facility] Work Phone: [facility] 01-15-2023 15:08-0400 Systolic blood pressure 168 mm[Hg] [facility] Work Phone: 0(448)151-870841 [address] 01-15-2023 12:58-0400 Body height 167.64 cm [facility] Work Phone: 7(005)329-432621 [place] [address] 01-15-2023 12:58-0400 Body weight 104 kg [facility] Work Phone: 2(173)394-980021 [place] [address] 01-14-2023 16:21-0400 Body mass index (BMI) [Ratio] 37 kg/m2 [facility] Work Phone: 0(035)789-958121 [place] [address] 01-13-2023 10:20-0400 Respiratory rate 16 /min [facility] Work Phone: 7(121)571-290621 [place] [address] 01-13-2023 06:21-0400 Body mass index (BMI) [Ratio] 37.6 kg/m2 [facility] Work Phone: 2(055)941-314021 [place] [address] 01-13-2023 06:21-0400 Body temperature 97 [degF] [facility] Work Phone: 1(432)385-428321 [place] [address] 01-13-2023 06:21-0400 Body weight 105.9 kg [facility] Work Phone: 3(840)292-673921 [place] [address] 01-13-2023 06:21-0400 Diastolic blood pressure 106 mm[Hg] [facility] Work Phone: 1(334)352-125621 [place] [address] 01-13-2023 06:21-0400 Heart rate 99 /min [facility] Work Phone: 3(035)473-036921 [place] [address] 01-13-2023 06:21-0400 SaO2% (BldA) [Mass fraction] 99 % [facility] Work Phone: 0(031)825-478621 [place] [address] 01-13-2023 06:21-0400 Systolic blood pressure 169 mm[Hg] [facility] Work Phone: 0(443)468-335021 [place] [address] 01-12-2023 13:20-0400 Diastolic blood pressure 101 mm[Hg] [facility] 01-12-2023 13:20-0400 Heart rate 70 /min [facility] 01-12-2023 13:20-0400 Respiratory rate 14 /min [facility] 01-12-2023 13:20-0400 SaO2% (BldA) [Mass fraction] 98 % [facility] 01-12-2023 13:20-0400 Systolic blood pressure 143 mm[Hg] [facility] 01-12-2023 10:45-0400 Body height 167.64 cm [facility] 01-12-2023 10:45-0400 Body mass index (BMI) [Ratio] 37.6 kg/m2 [facility] 01-12-2023 10:45-0400 Body temperature 95.2 [degF] [facility] 01-12-2023 10:45-0400 Body weight 105.8 kg [facility] 01-12-2023 02:13-0400 Diastolic blood pressure 87 mm[Hg] [facility] 01-12-2023 02:13-0400 Heart rate 84 /min [facility] 01-12-2023 02:13-0400 Respiratory rate 18 /min [facility] 01-12-2023 02:13-0400 SaO2% (BldA) [Mass fraction] 99 % [facility] 01-12-2023 02:13-0400 Systolic blood pressure 141 mm[Hg] [facility] 01-11-2023 22:58-0400 Body height 167.64 cm [facility] 01-11-2023 22:58-0400 Body mass index (BMI) [Ratio] 33 kg/m2 [facility] 01-11-2023 22:58-0400 Body temperature 96.8 [degF] [facility] 01-11-2023 22:58-0400 Body weight 92.98 kg [facility] 01-10-2023 17:27-0400 Body temperature 98.78 [degF] ESSIE LAWLERDouble Doods [facility] 01-10-2023 17:27-0400 Diastolic Blood Pressure Non-Invasive 80 1 ESSIE UBCKYDouble Doods [facility] 01-10-2023 17:27-0400 Heart rate 78 /min ESSIE LAWLERDouble Doods [facility] 01-10-2023 17:27-0400 Respiratory rate 16 /min ESSIE WASHINGTONadhoclabsT DO [facility] 01-10-2023 17:27-0400 Systolic Blood Pressure Non-Invasive 148 1 ESSIE FROMMELT DO [facility] 01-10-2023 16:16-0400 Body temperature 98.78 [degF] ESSIE FROMMELT DO [facility] 01-10-2023 15:43-0400 Diastolic Blood Pressure Non-Invasive 89 1 ESSIE WASHINGTONadhoclabsT DO [facility] 01-10-2023 15:43-0400 Heart rate 77 /min ESSIE WASHINGTONadhoclabsT DO [facility] 01-10-2023 15:43-0400 Respiratory rate 16 /min ESSIE WASHINGTONadhoclabsT DO [facility] 01-10-2023 15:43-0400 Systolic Blood Pressure Non-Invasive 144 1 ESSIE WASHINGTONadhoclabsT DO [facility] 01-10-2023 15:09-0400 Heart rate 74 /min ESSIE WASHINGTONadhoclabsT DO [facility] 01-10-2023 14:32-0400 Respiratory rate 12 /min ESSIE WASHINGTONadhoclabsT DO [facility] 01-10-2023 13:47-0400 Body temperature 98.78 [degF] ESSIE WASHINGTONadhoclabsT DO [facility] 01-10-2023 13:47-0400 Diastolic Blood Pressure Non-Invasive 92 1 ESSIE WASHINGTONadhoclabsT DO [facility] 01-10-2023 13:47-0400 Systolic Blood Pressure Non-Invasive 158 1 ESSIE FROMMELT DO [facility] 01-09-2023 15:21-0400 Diastolic blood pressure 70 mm[Hg] [facility] 01-09-2023 15:21-0400 Heart rate 84 /min [facility] 01-09-2023 15:21-0400 Respiratory rate 16 /min [facility] 01-09-2023 15:21-0400 SaO2% (BldA) [Mass fraction] 97 % [facility] 01-09-2023 15:21-0400 Systolic blood pressure 139 mm[Hg] [facility] 01-09-2023 11:53-0400 Body height 167.64 cm [facility] 01-09-2023 11:53-0400 Body mass index (BMI) [Ratio] 41.1 kg/m2 [facility] 01-09-2023 11:53-0400 Body temperature 98.2 [degF] [facility] 01-09-2023 11:53-0400 Body weight 115.4 kg [facility] 01-07-2023 14:18-0400 Respiratory rate 14 /min [facility] 01-07-2023 12:01-0400 Diastolic blood pressure 99 mm[Hg] [facility] 01-07-2023 12:01-0400 Systolic blood pressure 154 mm[Hg] [facility] 01-07-2023 08:38-0400 Body height 167.64 cm [facility] 01-07-2023 08:38-0400 Body mass index (BMI) [Ratio] 34.5 kg/m2 [facility] 01-07-2023 08:38-0400 Body temperature 98.7 [degF] [facility] 01-07-2023 08:38-0400 Body weight 97.06 kg [facility] 01-07-2023 08:38-0400 Heart rate 82 /min [facility] 01-07-2023 08:38-0400 SaO2% (BldA) [Mass fraction] 99 % [facility] 11-19-2022 09:26-0400 Body temperature 98.7 [degF] [facility] 11-19-2022 09:26-0400 Diastolic blood pressure 81 mm[Hg] [facility] 11-19-2022 09:26-0400 Heart rate 101 /min [facility] 11-19-2022 09:26-0400 Respiratory rate 14 /min [facility] 11-19-2022 09:26-0400 SaO2% (BldA) [Mass fraction] 99 % [facility] 11-19-2022 09:26-0400 Systolic blood pressure 131 mm[Hg] [facility] 11-19-2022 09:24-0400 Body mass index (BMI) [Ratio] 39.3 kg/m2 [facility] 11-19-2022 09:24-0400 Body weight 110.5 kg [facility] 11-17-2022 08:43-0400 Body temperature 97.5 [degF] [facility]ES REPRESENTATIVE.VOTING MACHINE REPAIRER Work Phone: [facility] 11-17-2022 08:43-0400 Body weight 110.22 kg [facility] SPECIALTY SALES REPRESENTATIVE.VOTING MACHINE REPAIRER Work Phone: [facility] 11-17-2022 08:43-0400 Diastolic blood pressure 72 mm[Hg] [facility] SPECIALTY SALES REPRESENTATIVE.VOTING MACHINE REPAIRER Work Phone: [facility] 11-17-2022 08:43-0400 Heart rate 108 /min [facility] SPECIALTY SALES REPRESENTATIVE.VOTING MACHINE REPAIRER Work Phone: [facility] 11-17-2022 08:43-0400 Respiratory rate 16 /min [facility] SPECIALTY SALES REPRESENTATIVE.VOTING MACHINE REPAIRER Work Phone: [facility] 11-17-2022 08:43-0400 SaO2% (BldA) [Mass fraction] 97 % [facility] SPECIALTY SALES REPRESENTATIVE.VOTING MACHINE REPAIRER Work Phone: [facility] 11-17-2022 08:43-0400 Systolic blood pressure 120 mm[Hg] [facility] SPECIALTY SALES REPRESENTATIVE.VOTING MACHINE REPAIRER Work Phone: [facility] 10-08-2022 08:44-0400 Body temperature 97 [degF] Shamika Athy PA-C Work Phone: [facility] 10-08-2022 08:44-0400 Body weight 109.14 kg Shamika Athy PA-C Work Phone: [facility] 10-08-2022 08:44-0400 Diastolic blood pressure 82 mm[Hg] Shamika Athy PA-C Work Phone: [facility] 10-08-2022 08:44-0400 Heart rate 94 /min Shamika Athy PA-C Work Phone: [facility] 10-08-2022 08:44-0400 Respiratory rate 16 /min Shamika Athy PA-C Work Phone: [facility] 10-08-2022 08:44-0400 SaO2% (BldA) [Mass fraction] 100 % Shamika Athy PA-C Work Phone: [facility] 10-08-2022 08:44-0400 Systolic blood pressure 112 mm[Hg] Shamika Athy PA-C Work Phone: [facility] 08-15-2022 13:46-0500 Body temperature 98.6 [degF] Dr. Sophy Gibbons Work Phone: [facility] 08-15-2022 13:46-0500 Diastolic blood pressure 95 mm[Hg] Dr. Sophy Gibbons Work Phone: [facility] 08-15-2022 13:46-0500 Heart rate 87 /min Dr. Sophy Gibbons Work Phone: [facility] 08-15-2022 13:46-0500 Respiratory rate 16 /min Dr. Sophy Gibbons Work Phone: [facility] 08-15-2022 13:46-0500 SaO2% (BldA) [Mass fraction] 99 % Dr. Sophy Gibbons Work Phone: [facility] 08-15-2022 13:46-0500 Systolic blood pressure 130 mm[Hg] Dr. Sophy Gibbons Work Phone: 3(853)436-283121 [place] [address] 08-15-2022 05:43-0500 Body weight 107.[address] Sophy Gibbons Work Phone: 1(336)456-203921 [place] [address] 08-13-2022 10:58-0500 Body height 167.[address] Sophy Gibbons Work Phone: 9(866)167-725921 [place] [address] 08-12-2022 22:34-0500 Body mass index (BMI) [Ratio] 37.9 kg/m2 Dr. Sophy Gibbons Work Phone: 8(633)098-991621 [place] [address] 08-12-2022 22:03-0500 Body temperature 98 [degF] Dr. Sophy Gibbons Work Phone: 7(620)382-010821 [place] [address] 08-12-2022 22:03-0500 Diastolic blood pressure 74 mm[Hg] Dr. Sophy Gibbons Work Phone: 6(897)348-963521 [place] [address] 08-12-2022 22:03-0500 Heart rate 82 /min Dr. oSphy Gibbons Work Phone: 9(953)423-219921 [place] [address] 08-12-2022 22:03-0500 Respiratory rate 15 /min Dr. Sophy Gibbons Work Phone: 4(383)843-751021 [place] [address] 08-12-2022 22:03-0500 SaO2% (BldA) [Mass fraction] 99 % Dr. Sophy Gibbons Work Phone: 7(267)265-636721 [place] [address] 08-12-2022 22:03-0500 Systolic blood pressure 118 mm[Hg] Dr. Sophy Gibbons Work Phone: 7(054)091-313421 [place] [address] 08-12-2022 15:27-0500 Body height 167.[address] Sophy Gibbons Work Phone: 0(542)129-099221 [place] [address] 08-12-2022 15:27-0500 Body mass index (BMI) [Ratio] 37.9 kg/m2 Dr. Sophy Gibbons Work Phone: 7(436)355-862921 [place] [address] 08-12-2022 15:27-0500 Body weight 106.[address] Sophy Gibbons Work Phone: [facility] 06-29-2022 08:39-0500 Body temperature 97.6 [degF] No Primary Care Physician [facility] 06-29-2022 08:39-0500 Diastolic blood pressure 90 mm[Hg] No Primary Care Physician [facility] 06-29-2022 08:39-0500 Heart rate 81 /min No Primary Care Physician [facility] 06-29-2022 08:39-0500 Respiratory rate 16 /min No Primary Care Physician [facility] 06-29-2022 08:39-0500 SaO2% (BldA) [Mass fraction] 99 % No Primary Care Physician [facility] 06-29-2022 08:39-0500 Systolic blood pressure 130 mm[Hg] No Primary Care Physician [facility] 06-26-2022 06:09-0500 Body height 167.64 cm No Primary Care Physician [facility] Work Phone: 06-26-2022 06:09-0500 Body mass index (BMI) [Ratio] 38.1 kg/m2 No Primary Care Physician [facility] 06-26-2022 06:09-0500 Body weight 107.1 kg No Primary Care Physician [facility] 06-25-2022 03:57-0500 Body temperature 98.1 [degF] No Primary Care Physician [facility] Work Phone: 06-25-2022 03:57-0500 Diastolic blood pressure 99 mm[Hg] No Primary Care Physician [facility] Work Phone: 06-25-2022 03:57-0500 Heart rate 96 /min No Primary Care Physician [facility] Work Phone: 06-25-2022 03:57-0500 Respiratory rate 18 /min No Primary Care Physician [facility] Work Phone: 06-25-2022 03:57-0500 SaO2% (BldA) [Mass fraction] 97 % No Primary Care Physician [facility] Work Phone: 06-25-2022 03:57-0500 Systolic blood pressure 134 mm[Hg] No Primary Care Physician [facility] Work Phone: 06-24-2022 16:48-0500 Body height 167.64 cm No Primary Care Physician [facility] Work Phone: 06-24-2022 16:48-0500 Body mass index (BMI) [Ratio] 38 kg/m2 No Primary Care Physician [facility] Work Phone: 06-24-2022 16:48-0500 Body weight 107.04 kg No Primary Care Physician [facility] Work Phone: 06-24-2022 15:30-0500 Body temperature 98.9 [degF] No Primary Care Physician [facility] Work Phone: 06-24-2022 15:30-0500 Diastolic blood pressure 99 mm[Hg] No Primary Care Physician [facility] Work Phone: 06-24-2022 15:30-0500 Heart rate 97 /min No Primary Care Physician [facility] Work Phone: 06-24-2022 15:30-0500 Respiratory rate 15 /min No Primary Care Physician [facility] Work Phone: 06-24-2022 15:30-0500 SaO2% (BldA) [Mass fraction] 100 % No Primary Care Physician [facility] Work Phone: 06-24-2022 15:30-0500 Systolic blood pressure 137 mm[Hg] No Primary Care Physician [facility] Work Phone: 06-24-2022 11:12-0500 Body height 167.64 cm No Primary Care Physician [facility] Work Phone: 06-24-2022 11:12-0500 Body mass index (BMI) [Ratio] 35.5 kg/m2 No Primary Care Physician [facility] Work Phone: 06-24-2022 11:12-0500 Body weight 99.79 kg No Primary Care Physician [facility] Work Phone: 04-09-2022 16:15-0400 Body temperature 98.2 [degF] No Primary Care Physician [facility] Work Phone: 04-09-2022 16:15-0400 Diastolic blood pressure 87 mm[Hg] No Primary Care Physician [facility] Work Phone: 04-09-2022 16:15-0400 Heart rate 89 /min No Primary Care Physician [facility] Work Phone: 04-09-2022 16:15-0400 Respiratory rate 18 /min No Primary Care Physician [facility] Work Phone: 04-09-2022 16:15-0400 SaO2% (BldA) [Mass fraction] 99 % No Primary Care Physician [facility] Work Phone: 04-09-2022 16:15-0400 Systolic blood pressure 136 mm[Hg] No Primary Care Physician [facility] Work Phone: 04-08-2022 11:30-0400 Body height 167.64 cm No Primary Care Physician [facility] Work Phone: 04-08-2022 11:30-0400 Body weight 96.6 kg No Primary Care Physician [facility] Work Phone: 04-06-2022 17:48-0400 Body mass index (BMI) [Ratio] 34.3 kg/m2 No Primary Care Physician [facility] Work Phone: 04-06-2022 15:39-0400 Body temperature 100.1 [degF] No Primary Care Physician [facility] Work Phone: 04-06-2022 15:39-0400 Diastolic blood pressure 79 mm[Hg] No Primary Care Physician [facility] Work Phone: 04-06-2022 15:39-0400 Heart rate 114 /min No Primary Care Physician [facility] Work Phone: 04-06-2022 15:39-0400 Respiratory rate 20 /min No Primary Care Physician [facility] Work Phone: 04-06-2022 15:39-0400 SaO2% (BldA) [Mass fraction] 98 % No Primary Care Physician [facility] Work Phone: 04-06-2022 15:39-0400 Systolic blood pressure 136 mm[Hg] No Primary Care Physician [facility] Work Phone: 04-06-2022 12:45-0400 Body height 167.64 cm No Primary Care Physician [facility] Work Phone: 04-06-2022 12:45-0400 Body mass index (BMI) [Ratio] 34.7 kg/m2 No Primary Care Physician [facility] Work Phone: 04-06-2022 12:45-0400 Body weight 97.5 kg No Primary Care Physician [facility] Work Phone: 04-05-2022 16:06-0400 Diastolic blood pressure 95 mm[Hg] No Primary Care Physician [facility] Work Phone: 04-05-2022 16:06-0400 Heart rate 103 /min No Primary Care Physician [facility] Work Phone: 04-05-2022 16:06-0400 Respiratory rate 16 /min No Primary Care Physician [facility] Work Phone: 04-05-2022 16:06-0400 SaO2% (BldA) [Mass fraction] 98 % No Primary Care Physician [facility] Work Phone: 04-05-2022 16:06-0400 Systolic blood pressure 127 mm[Hg] No Primary Care Physician [facility] Work Phone: 04-05-2022 11:53-0400 Body temperature 98 [degF] No Primary Care Physician [facility] Work Phone: 04-05-2022 11:50-0400 Body height 167.64 cm No Primary Care Physician [facility] Work Phone: 04-05-2022 11:50-0400 Body mass index (BMI) [Ratio] 34.4 kg/m2 No Primary Care Physician [facility] Work Phone: 04-05-2022 11:50-0400 Body weight 96.8 kg No Primary Care Physician [facility] Work Phone: 03-23-2022 12:28-0400 Body temperature 97 [degF] Sid Bravo MD Work Phone: [facility] 03-23-2022 12:28-0400 Body weight 97.07 kg Sid Bravo MD Work Phone: [facility] 03-23-2022 12:28-0400 Diastolic blood pressure 98 mm[Hg] Sid Bravo MD Work Phone: [facility] 03-23-2022 12:28-0400 Heart rate 105 /min Sid Bravo MD Work Phone: [facility] 03-23-2022 12:28-0400 Respiratory rate 20 /min Sid Bravo MD Work Phone: [facility] 03-23-2022 12:28-0400 SaO2% (BldA) [Mass fraction] 93 % Sid Bravo MD Work Phone: [facility] 03-23-2022 12:28-0400 Systolic blood pressure 130 mm[Hg] Sid Bravo MD Work Phone: [facility] 02-02-2022 09:33-0400 Body temperature 97.2 [degF] Alyssa Yeni SPECIALTY SALES REPRESENTATIVE.VOTING MACHINE REPAIRER Work Phone: [facility] 02-02-2022 09:33-0400 Body weight 92.53 kg Alyssa Yeni SPECIALTY SALES REPRESENTATIVE.VOTING MACHINE REPAIRER Work Phone: [facility] 02-02-2022 09:33-0400 Diastolic blood pressure 72 mm[Hg] Alyssa Yeni SPECIALTY SALES REPRESENTATIVE.VOTING MACHINE REPAIRER Work Phone: [facility] 02-02-2022 09:33-0400 Heart rate 74 /min Alyssa Yeni SPECIALTY SALES REPRESENTATIVE.VOTING MACHINE REPAIRER Work Phone: [facility] 02-02-2022 09:33-0400 Respiratory rate 16 /min Alyssa Yeni SPECIALTY SALES REPRESENTATIVE.VOTING MACHINE REPAIRER Work Phone: [facility] 02-02-2022 09:33-0400 SaO2% (BldA) [Mass fraction] 99 % Alyssa Jaime APRN.VOTING MACHINE REPAIRER Work Phone: [facility] 02-02-2022 09:33-0400 Systolic blood pressure 120 mm[Hg] Alyssa Jaime APRN.VOTING MACHINE REPAIRER Work Phone: [facility] 02-01-2022 17:18-0400 Diastolic blood pressure 100 mm[Hg] No Primary Care Physician [facility] Work Phone: 02-01-2022 17:18-0400 Heart rate 66 /min No Primary Care Physician [facility] Work Phone: 02-01-2022 17:18-0400 Respiratory rate 18 /min No Primary Care Physician [facility] Work Phone: 02-01-2022 17:18-0400 SaO2% (BldA) [Mass fraction] 97 % No Primary Care Physician [facility] Work Phone: 02-01-2022 17:18-0400 Systolic blood pressure 145 mm[Hg] No Primary Care Physician [facility] Work Phone: 02-01-2022 12:42-0400 Body height 167.64 cm No Primary Care Physician [facility] Work Phone: 02-01-2022 12:42-0400 Body mass index (BMI) [Ratio] 32.3 kg/m2 No Primary Care Physician [facility] Work Phone: 02-01-2022 12:42-0400 Body temperature 96.3 [degF] No Primary Care Physician [facility] Work Phone: 02-01-2022 12:42-0400 Body weight 90.71 kg No Primary Care Physician [facility] Work Phone: 01-26-2022 12:31-0400 Body height 167.64 cm [facility] Work Phone: 01-26-2022 12:31-0400 Body mass index (BMI) [Ratio] 32.6 kg/m2 [facility] Work Phone: 01-26-2022 12:31-0400 Body temperature 98.4 [degF] [facility] Work Phone: 01-26-2022 12:31-0400 Body weight 91.71 kg [facility] Work Phone: 01-26-2022 12:31-0400 Diastolic blood pressure 108 mm[Hg] [facility] Work Phone: 01-26-2022 12:31-0400 Heart rate 94 /min [facility] Work Phone: 01-26-2022 12:31-0400 Respiratory rate 22 /min [facility] Work Phone: 01-26-2022 12:31-0400 SaO2% (BldA) [Mass fraction] 99 % [facility] Work Phone: 01-26-2022 12:31-0400 Systolic blood pressure 154 mm[Hg] [facility] Work Phone: 01-23-2022 18:18-0400 Diastolic blood pressure 74 mm[Hg] [facility] Work Phone: 01-23-2022 18:18-0400 Respiratory rate 18 /min [facility] Work Phone: 01-23-2022 18:18-0400 Systolic blood pressure 122 mm[Hg] [facility] Work Phone: 01-23-2022 16:02-0400 Body height 167.64 cm [facility] Work Phone: 01-23-2022 16:02-0400 Body mass index (BMI) [Ratio] 33.9 kg/m2 [facility] Work Phone: 01-23-2022 16:02-0400 Body temperature 97.6 [degF] [facility] Work Phone: 01-23-2022 16:02-0400 Body weight 95.25 kg [facility] Work Phone: 01-23-2022 16:02-0400 Heart rate 99 /min [facility] Work Phone: 01-23-2022 16:02-0400 SaO2% (BldA) [Mass fraction] 100 % [facility] Work Phone: 01-22-2022 23:45-0400 Heart rate 91 /min [facility] Work Phone: 01-22-2022 23:45-0400 Respiratory rate 16 /min [facility] Work Phone: 01-22-2022 23:45-0400 SaO2% (BldA) [Mass fraction] 98 % [facility] Work Phone: 01-22-2022 21:26-0400 Body height 167.64 cm [facility] Work Phone: 01-22-2022 21:26-0400 Body mass index (BMI) [Ratio] 33.9 kg/m2 [facility] Work Phone: 01-22-2022 21:26-0400 Body temperature 97.8 [degF] [facility] Work Phone: 01-22-2022 21:26-0400 Body weight 95.25 kg [facility] Work Phone: 01-22-2022 21:26-0400 Diastolic blood pressure 97 mm[Hg] [facility] Work Phone: 01-22-2022 21:26-0400 Systolic blood pressure 140 mm[Hg] [facility] Work Phone: 01-16-2022 14:12-0400 Body height 167.64 cm [facility] Work Phone: 01-16-2022 14:12-0400 Body mass index (BMI) [Ratio] 33.9 kg/m2 [facility] Work Phone: 01-16-2022 14:12-0400 Body temperature 96.7 [degF] [facility] Work Phone: 01-16-2022 14:12-0400 Body weight 95.3 kg [facility] Work Phone: 01-16-2022 14:12-0400 Diastolic blood pressure 93 mm[Hg] [facility] Work Phone: 01-16-2022 14:12-0400 Heart rate 130 /min [facility] Work Phone: 01-16-2022 14:12-0400 Respiratory rate 18 /min [facility] Work Phone: 01-16-2022 14:12-0400 SaO2% (BldA) [Mass fraction] 98 % [facility] Work Phone: 01-16-2022 14:12-0400 Systolic blood pressure 126 mm[Hg] [facility] Work Phone: 11-16-2021 10:09-0400 Body temperature 98.3 [degF] [facility] Work Phone: 11-16-2021 10:09-0400 Diastolic blood pressure 82 mm[Hg] [facility] Work Phone: 11-16-2021 10:09-0400 Heart rate 98 /min [facility] Work Phone: 11-16-2021 10:09-0400 Systolic blood pressure 138 mm[Hg] [facility] Work Phone: 11-16-2021 08:39-0400 Body height 167.64 cm [facility] Work Phone: 11-16-2021 08:39-0400 Body mass index (BMI) [Ratio] 34.9 kg/m2 [facility] Work Phone: 11-16-2021 08:39-0400 Body weight 98.33 kg [facility] Work Phone: 11-16-2021 08:39-0400 Respiratory rate 16 /min [facility] Work Phone: 11-16-2021 08:39-0400 SaO2% (BldA) [Mass fraction] 96 % [facility] Work Phone: 10-29-2021 12:09-0400 Diastolic blood pressure 69 mm[Hg] [facility] Work Phone: 10-29-2021 12:09-0400 Heart rate 71 /min [facility] Work Phone: 10-29-2021 12:09-0400 Respiratory rate 15 /min [facility] Work Phone: 10-29-2021 12:09-0400 SaO2% (BldA) [Mass fraction] 98 % [facility] Work Phone: 10-29-2021 12:09-0400 Systolic blood pressure 124 mm[Hg] [facility] Work Phone: 10-29-2021 08:59-0400 Body height 167.64 cm [facility] Work Phone: 10-29-2021 08:59-0400 Body mass index (BMI) [Ratio] 34.6 kg/m2 [facility] Work Phone: 10-29-2021 08:59-0400 Body temperature 96.9 [degF] [facility] Work Phone: 10-29-2021 08:59-0400 Body weight 97.4 kg [facility] Work Phone: 10-24-2021 08:30-0400 Body temperature 97.3 [degF] [facility] Work Phone: 10-24-2021 08:30-0400 Diastolic blood pressure 92 mm[Hg] [facility] Work Phone: 10-24-2021 08:30-0400 Heart rate 98 /min [facility] Work Phone: 10-24-2021 08:30-0400 Respiratory rate 16 /min [facility] Work Phone: 10-24-2021 08:30-0400 SaO2% (BldA) [Mass fraction] 100 % [facility] Work Phone: 10-24-2021 08:30-0400 Systolic blood pressure 148 mm[Hg] [facility] Work Phone: 10-24-2021 08:18-0400 Body height 167.64 cm [facility] Work Phone: 10-24-2021 08:18-0400 Body mass index (BMI) [Ratio] 33.7 kg/m2 [facility] Work Phone: 10-24-2021 08:18-0400 Body weight 95 kg [facility] Work Phone: 08-10-2021 23:58-0500 Heart rate 107 /min [facility] Work Phone: 08-10-2021 23:58-0500 Respiratory rate 18 /min [facility] Work Phone: 08-10-2021 23:58-0500 SaO2% (BldA) [Mass fraction] 100 % [facility] Work Phone: 08-10-2021 22:57-0500 Diastolic blood pressure 88 mm[Hg] [facility] Work Phone: 08-10-2021 22:57-0500 Systolic blood pressure 125 mm[Hg] [facility] Work Phone: 08-10-2021 21:32-0500 Body mass index (BMI) [Ratio] 35.5 kg/m2 [facility] Work Phone: 08-10-2021 21:32-0500 Body temperature 97.6 [degF] [facility] Work Phone: 08-10-2021 21:32-0500 Body weight 99.79 kg [facility] Work Phone: Encounters Encounter Date Encounter Type Care Provider Facility Start: 01-04-2025 End: 01-04-[address] TECH-C Work Phone: -Emergency Department Work Phone: Start: 01-04-2025 End: 01-04-2025 Emergency department patient visit Amy Solorzano CT TECH-C [facility] [facility] Work Phone: Start: 01-02-2025 End: 01-02-[address] TECH-C Work Phone: -Emergency Department Work Phone: Start: 01-02-2025 End: 01-02-2025 Emergency department patient visit Amy Solorzano CT TECH-C Work Phone: [facility] Work Phone: Start: 01-01-2025 Dr. Frantz Coulter DO -[facility] Work Phone: Start: 12-31-2024 ambulatory Dewayne Barrett ty:[facility] Start: 12-31-2024 End: 01-01-2025 Evaluation and management of inpatient Amy Solorzano CT TECH-C Work Phone: [facility] Work Phone: Start: 12-31-2024 End: 01-01-2025 Dr. Dewayne Grant DO -Intensive Care Unit Work Phone: Start: 12-31-2024 Dr. David Hernandez and -[facility] Work Phone: Start: 12-30-2024 Non-patient / Non-visit Dr. Dwaine Bain MD -[facility] Work Phone: Start: 12-30-2024 ambulatory Amypalma Floreznay in [facility] Facility:[facility] Start: 12-30-2024 End: 12-31-2024 Evaluation and management of inpatient Dr. David Bain MD -Intensive Care Unit Work Phone: Start: 12-30-2024 End: 12-31-2024 Dr. David Bain MD -Intensive Care Unit Work Phone: Start: 12-25-2024 End: 12-25-[address] TECH-C Work Phone: [facility] Work Phone: Start: 12-25-2024 End: 12-25-2024 Patient encounter procedure Nayana Peter PA -Ultrasound [facility] Work Phone: Start: 12-25-2024 End: 12-25-2024 Nayana Peter PA -Ultrasound [facility] Work Phone: Start: 12-25-2024 End: 12-25-2024 ambulatory Kalee Peter Facility:[facility] Start: 12-13-2024 End: 12-13-[address] TECH-C Work Phone: [facility] Work Phone: Start: 12-13-2024 End: 12-13-2024 Patient encounter procedure Nayana Peter PA -Laboratory Work Phone: Start: 12-13-2024 End: 12-13-2024 Nayana Peter PA -Laboratory Work Phone: Start: 12-13-2024 End: 12-13-2024 Patient encounter procedure Nayana GRADY -[facility] Work Phone: Start: 12-13-2024 End: 12-13-2024 Nayana GRADY -[facility] Work Phone: Start: 12-13-2024 End: 12-13-[address] TECH-C Work Phone: [facility] Work Phone: Start: 12-13-2024 End: 12-13-2024 ambulatory Amy Solorzano VSC Facility:[facility] Start: 11-28-2024 Non-patient / Non-visit Dr. Gale Lr DO [facility] Work Phone: Start: 11-28-2024 Dr. Gale Lr DO [facility] Work Phone: Start: 11-28-2024 Non-patient / Non-visit Clare SIMONC -[facility] Start: 11-28-2024 Clare jauregui PA- -[facility] Start: 11-27-2024 Non-patient / Non-visit Clare GRADY-C -[facility] Start: 11-27-2024 Clare GRADY-C -[facility] Start: 11-26-2024 Non-patient / Non-visit Dr. Clair Rao MD -[facility] Work Phone: Start: 11-26-2024 Dr. Brenda alcocer MD -[facility] Work Phone: Start: 11-26-2024 Non-patient / [facility] Start: 11-26-2024 Dr. Annalise Welch MD [facility] Start: 11-25-2024 Non-patient / Non-visit Dr. Fahad Welch MD [facility] Start: 11-25-2024 Dr. Annalise Welch MD [facility] Start: 11-25-2024 ambulatory Brenda Rao Facility :[facility] Start: 11-25-2024 End: 11-28-2024 Evaluation and management of inpatient Dr. Brenda Rao MD -Medical Surgical 3 Work Phone: Start: 11-25-2024 End: 11-28-2024 Dr. Gale Lr DO -Medical Surgical 3 Work Phone: Start: 10-26-2024 ambulatory Amy Radford in [facility] Facility:[facility] Start: 10-25-2024 End: 10-25-[address] TECH-C Work Phone: [facility] Work Phone: Start: 10-25-2024 End: 10-25-[address] Stephan Forrest DP -Cardiovascular Services Work Phone: Start: 10-25-2024 End: 10-25-2024 Dr. Stephan Forrest DP -Cardiovascular Services Work Phone: Start: 10-25-2024 End: 10-25-2024 ambulatory [facility] Facility:[facility] Start: 10-17-2024 End: 10-17-2024 [facility] CT TECH-C Work Phone: [facility] Work Phone: Start: 10-17-2024 End: 10-17-2024 Patient encounter procedure [facility] Amy Solorzano CT TECH-C -Laboratory, Sophy Gibbons Start: 10-17-2024 End: 10-17-20[address] [facility] [address] TECH-C -Laboratory Sophy Gibbons Start: 10-17-2024 End: 10-17-2024 ambulatory [facility] Facility:[facility] Start: 07-03-2024 End: 07-03-2024 Patient encounter procedure Vadim GRADY Work Phone: [facility] Comment on above: Acute cough (Primary Dx) Start: 07-03-2024 End: 07-03-2024 formerly [facility] Start: 07-03-2024 End: 07-03-2024 Subsequent hospital visit by physician Xr [facility] Work Phone: Radiology Comment on above: Acute cough [R05.1] Start: 06-26-2024 End: 06-26-2024 [facility] Facility:[facility] Start: 06-26-2024 End: 06-26-2024 Office outpatient visit 25 minutes Frantz GRADY-Sara Work Phone: [facility] Comment on above: Bronchopneumonia (Pr imary Dx); Mild intermittent asthma, uncomplicated Start: 04-25-2024 End: 04-25-2024 ambulatory Amy Solorzano [facility] Facility:[facility] Start: 11-08-2023 End: 11-08-2023 ambulatory [facility] Work Phone: Start: 11-08-2023 End: 11-08-2023 Patient encounter procedure [facility] Work Phone: Start: 07-23-2023 End: 07-23-2023 Admission to same day surgery center [facility]-S[facility] Day Care Start: 07-23-2023 End: 07-23-2023 ambulatory No Primary Care Physician [facility] Work Phone: Start: 07-23-2023 End: 07-23-2023 No Primary Care Physician [facility]-S[facility] Day [facility] Start: 07-12-2023 End: 07-12-2023 No Primary Care Physician [facility]-Emergency Department Work Phone: Start: 07-02-2023 End: 07-02-2023 Emergency department patient visit No Primary Care Physician [facility] Work Phone: Start: 07-02-2023 End: 07-02-2023 No Primary Care Physician [facility]-Emergency Department Work Phone: Start: 07-01-2023 End: 07-01-2023 Office outpatient visit 15 minutes Andres Galaviz APRN.CNP Work Phone: [facility] Comment on above: Pain of right eye (P rimary Dx) Start: 06-30-2023 End: 06-30-2023 No Primary Care Physician [facility]-Emergency Department Work Phone: Start: 06-28-2023 End: 06-28-2023 Emergency department patient visit No Primary Care Physician [facility]-Emergency Department Work Phone: Start: 06-28-2023 End: 06-28-2023 No Primary Care Physician [facility]-Emergency Department Work Phone: Start: 06-27-2023 End: 06-27-2023 Emergency department patient visit No Primary Care Physician [facility]-Emergency Department Work Phone: Start: 06-27-2023 End: 06-27-2023 No Primary Care Physician [facility]-Emergency Department Work Phone: Start: 06-26-2023 End: 06-26-2023 Emergency department patient visit No Primary Care Physician [facility]-Emergency Department Work Phone: Start: 06-26-2023 End: 06-26-2023 No Primary Care Physician [facility]-Emergency Department Work Phone: Start: 06-25-2023 End: 06-25-2023 Emergency department patient visit No Primary Care Physician [facility]-Emergency Department Work Phone: Start: 06-25-2023 End: 06-25-2023 No Primary Care Physician [facility]-Emergency Department Work Phone: Start: 05-18-2023 End: 05-18-2023 ambulatory No Primary Care Physician [facility] Work Phone: Start: 05-18-2023 End: 05-18-2023 Patient encounter procedure No Primary Care Physician [facility]-Laboratory, Specimen Work Phone: Start: 05-18-2023 End: 05-18-2023 No Primary Care Physician [facility]-Laboratory, Specimen Work Phone: Start: 05-09-2023 Non-patient / Non-visit No Kristina Woo Physician [facility] Work Phone: Start: 05-09-2023 [facility] Work Phone: [facility] Work Phone: Start: 05-08-2023 Non-patient / Non-visit No Kristina cormier Care Physician [facility] Work Phone: Start: 05-08-2023 [facility] Work Phone: [facility] Work Phone: Start: 05-07-2023 Non-patient / Non-visit No Kristina Woo Physician [facility] Work Phone: Start: 05-07-2023 [facility] Work Phone: [facility] Work Phone: Start: 05-06-2023 Non-patient / Non-visit No Kristina Woo Physician [facility] Work Phone: Start: 05-06-2023 [facility] Work Phone: [facility] Work Phone: Start: 05-05-2023 Non-patient / Non-visit No Kristina Woo Physician [facility] Work Phone: Start: 05-05-2023 [facility] Work Phone: [facility] Work Phone: Start: 05-04-2023 End: 05-09-2023 Evaluation and management of inpatient [facility] Work Phone: [facility] Work Phone: Start: 05-04-2023 End: 05-09-2023 [facility] Work Phone: [facility]-Medical Surgical 3 Work Phone: Start: 05-04-2023 ambulatory [facility] Work Phone: [facility] Work Phone: Start: 05-04-2023 [facility] Work Phone: [facility]-Director Of [facility] Services Inpatients Work Phone: Start: 05-04-2023 Non-patient / Non-visit No Kristina Woo Physician [facility] Work Phone: Start: 05-04-2023 [facility] Work Phone: [facility] Work Phone: Start: 04-15-2023 End: 04-15-2023 Emergency department patient visit No [facility] Work [facility]: Start: 04-15-2023 End: 04-15-2023 [facility] Work Phone: [facility] Work Phone: Start: 04-15-2023 End: 04-15-2023 Patient encounter procedure Stephan Peña SPECIALTY SALES REPRESENTATIVE.VOTING MACHINE REPAIRER Work Phone: [facility] Comment on above: SOB (shortness of br eath) (Primary Dx); Abdominal pain, unspecified abdominal location Start: 04-14-2023 End: 04-14-2023 Emergency department patient visit No [facility] Work Phone: Start: 04-14-2023 End: 04-14-2023 [facility] Work Phone: [facility] Work Phone: Start: 04-13-2023 End: 04-13-2023 Emergency department patient visit No [facility] Phys[facility] Work Phone: Start: 04-13-2023 End: 04-13-2023 [facility] Work Phone: [facility] Work Phone: Start: 03-26-2023 ambulatory No Pcp SPECIALTY SALES REPRESENTATIVE George cervantes [place] Start: 03-12-2023 Orders Only Pilar holm SPECIALTY SALES REPRESENTATIVE.VOTING MACHINE REPAIRER Work Phone: [facility] Comment on above: Chronic abdominal pa in (Primary Dx) Start: 03-10-2023 Telephone encounter Amy redding CT TECH Work Phone: NOC Comment on above: Follow Up (Post Disc harge F/U - 1st attempt made. No answer./) Start: 03-09-2023 Telephone encounter Pilar barrios APRN.VOTING MACHINE REPAIRER Work Phone: [facility] Comment on above: Consult Start: 03-06-2023 End: 03-06-2023 Emergency department patient visit [facility] Work Phone: [facility] Work Phone: Start: 03-06-2023 End: 03-06-2023 [facility] Work Phone: [facility]-Emergency Department Work Phone: Start: 03-02-2023 ambulatory No Pcp ROSA cervantes [place] Start: 03-02-2023 Telephone encounter Almita lara PA-C Work Phone: [facility] Adult Comment on above: Appointment Start: 03-01-2023 End: 03-04-2023 Evaluation and management of inpatient [facility] Facility:[facility] Start: 03-01-2023 End: 03-01-2023 Patient encounter procedure Dewayne Doran MD Work Phone: Gastroenterology Comment on above: Vomiting, unspecifie d vomiting type, unspecified whether nausea present (Primary Dx); Chronic nausea Start: 02-25-2023 End: 02-26-2023 Emergency department patient visit [facility] Work Phone: [facility] Work Phone: Start: 02-25-2023 End: 02-26-2023 [facility] Work Phone: [facility]-Emergency Department Work Phone: Start: 02-24-2023 End: 02-24-2023 Emergency department patient visit No Primary Care Physician [facility]-Emergency Department Work Phone: Start: 02-24-2023 End: 02-24-2023 [facility] Work Phone: [facility]-Emergency Department Work Phone: Start: 02-23-2023 End: 02-23-2023 Patient encounter procedure Pilar Magdaleno APRN.VOTING MACHINE REPAIRER Work Phone: [facility] Comment on above: Chronic nausea (Prim crystal Dx); Chronic abdominal pain Start: 02-17-2023 End: 02-18-2023 Emergency department patient visit DEWAYNE BRAGA [facility] Start: 02-11-2023 End: 02-11-2023 ambulatory GERALDINE SILVA DO Facility:[facility] Start: 02-10-2023 End: 02-11-2023 Observation ROWENA SILVERMAN SPECIALTY SALES REPRESENTATIVE-VOTING MACHINE REPAIRER [facility] Start: 02-08-2023 End: 02-08-2023 Emergency department patient visit [facility] Work Phone: [facility]-Emergency Department Work Phone: Start: 02-08-2023 End: 02-08-2023 [facility] Work Phone: [facility]-Emergency Department Work Phone: Start: 02-04-2023 End: 02-04-2023 Patient encounter procedure Vadim GRADY Work Phone: [facility] Comment on above: Generalized abdomina l pain (Primary Dx) Start: 02-04-2023 End: 02-04-2023 Emergency department patient visit [facility] Work Phone: [facility]-Emergency Department Work Phone: Start: 02-04-2023 End: 02-04-2023 [facility] Work Phone: [facility]-Emergency Department Work Phone: Start: 01-25-2023 End: 01-25-2023 Emergency department patient visit [facility] Work Phone: [facility]-Emergency Department Work Phone: Start: 01-25-2023 End: 01-25-2023 [facility] Work Phone: [facility]-Emergency Department Work Phone: Start: 01-24-2023 End: 01-24-2023 Emergency department patient visit [facility] Start: 01-24-2023 End: 01-24-2023 Emergency department patient visit Stephan Ramirez MD Work Phone: [facility] Comment on above: Nausea and vomiting, unspecified vomiting type (Primary Dx); Syncope and collapse Start: 01-17-2023 End: 01-17-2023 Emergency department patient visit GERALDINE ROLAND [facility] Start: 01-15-2023 Non-patient / Non-visit [facility] Work Phone: [facility] Inpatient Physicians Work Phone: Start: 01-15-2023 [facility] Work Phone: [facility] Inpatient [facility]icians Work Phone: Start: 01-14-2023 End: 01-15-2023 Evaluation and management of inpatient [facility] Work Phone: [facility] Surgical 3 Work Phone: Start: 01-14-2023 End: 01-15-2023 observation encounter [facility] Work Phone: [facility] Work Phone: Start: 01-14-2023 End: 01-15-2023 [facility] Work Phone: [facility] Surgical 3 Work Phone: Start: 01-13-2023 End: 01-13-2023 Emergency department patient visit [facility] Work Phone: [facility]-Emergency Department Work Phone: Start: 01-13-2023 End: 01-13-2023 [facility] Work Phone: [facility]-Emergency Department Work Phone: Start: 01-12-2023 End: 01-12-2023 Emergency department patient visit [facility]-Emergency Department Work Phone: Start: 01-12-2023 End: 01-12-2023 [facility] Work Phone: [facility]-Emergency Department Work Phone: Start: 01-11-2023 End: 01-12-2023 Emergency department patient visit [facility]-Emergency Department Work Phone: Start: 01-11-2023 End: 01-12-2023 [facility] Work Phone: [facility]-Emergency Department Work Phone: Start: 01-10-2023 End: 01-10-2023 Emergency department patient visit ESSIE DOWNS Facility:[facility] Start: 01-10-2023 End: 01-10-2023 Emergency department patient [facility] Start: 01-09-2023 End: 01-09-2023 Emergency department patient visit [facility]-Emergency Department Work Phone: Start: 01-09-2023 End: 01-09-2023 [facility] Work Phone: [facility]-Emergency Department Work Phone: Start: 01-07-2023 End: 01-07-2023 Emergency department patient visit [facility]-Emergency Department Work Phone: Start: 01-07-2023 End: 01-07-2023 [facility] Work Phone: [facility]-Emergency Department Work Phone: Start: 11-25-2022 End: 11-25-2022 ambulatory [facility] Work Phone: [facility] Work Phone: Start: 11-25-2022 End: 11-25-2022 Patient encounter procedure [facility]-Laboratory Work Phone: Start: 11-25-2022 End: 11-25-2022 [facility]: Start: 11-19-2022 End: 11-19-2022 Emergency department patient visit [facility]-Emergency Department Work Phone: Start: 11-19-2022 End: 11-19-2022 [facility] Work Phone: [facility]-Emergency Department Work Phone: Start: 11-17-2022 End: 11-17-2022 Office outpatient visit 25 minutes Andres Galaviz APRN.CNP Work Phone: [facility] Comment on above: Facial infection (Pr imary Dx) Start: 10-11-2022 Telephone encounter Vadim GRADY Work Phone: [facility] Comment on above: Results Start: 10-08-2022 End: 10-08-2022 Patient encounter procedure Shamika Goins PA-C Work Phone: [facility] Comment on above: Toe infection (Prima ry Dx); Facial infection; History of MRSA infection Start: 08-14-2022 Non-patient / Non-visit Dr. Jessica Gibbons Work Phone: [facility] Inpatient Physicians Start: 08-13-2022 Non-patient / Non-visit Dr. Jessica Gibbons Work Phone: [facility] Inpatient Physicians Start: 08-12-2022 Non-patient / Non-visit Dr. Jessica Gibbons Work Phone: [facility] Start: 08-12-2022 End: 08-15-2022 Evaluation and management of inpatient Dr. Sophy Gibbons Work Phone: [facility]-Progressive Care Unit Start: 06-29-2022 Non-patient / Non-visit No Kristina cormier Care Physician [facility] Inpatient Physicians Start: 06-28-2022 Non-patient / Non-visit No Kristina cormier Care Physician [facility] Inpatient Physicians Start: 06-27-2022 Non-patient / Non-visit No Kristina cormier Care Physician [facility] Inpatient Physicians Start: 06-26-2022 Non-patient / Non-visit No Kristina cormier Care Physician [facility] Start: 06-25-2022 Non-patient / Non-visit No Kristina cormier Care Physician [facility] Inpatient Physicians Start: 06-24-2022 End: 06-29-2022 Evaluation and management of inpatient No Primary Care Physician [facility]-Medical Surgical 3 Start: 06-23-2022 End: 06-23-2022 ambulatory No Primary Care Physician [facility] Work Phone: Start: 06-23-2022 End: 06-23-2022 Patient encounter procedure No Primary Care Physician [facility]-Laboratory, Specimen Start: 05-07-2022 End: 05-07-2022 ambulatory No Primary Care Physician [facility] Work Phone: Start: 05-07-2022 End: 05-07-2022 Patient encounter procedure No Primary Care Physician [facility]-Laboratory Start: 04-20-2022 End: 04-20-2022 ambulatory No Primary Care Physician [facility] Work Phone: Start: 04-20-2022 End: 04-20-2022 Departed Referred No Primary Care Physician [facility] Start: 04-20-2022 Registered Referred No Primary Care Physician [facility] 100/[facility] Start: 04-13-2022 End: 04-13-2022 ambulatory No Primary Care Physician [facility] Work Phone: Start: 04-13-2022 End: 04-13-2022 Departed Referred No Primary Care Physician [facility] 100/[facility] Start: 04-13-2022 Registered Referred No Primary Care Physician [facility] 100/[facility] Start: 04-10-2022 End: 04-10-2022 ambulatory No Primary Care Physician [facility] Work Phone: Start: 04-10-2022 End: 04-10-2022 Departed Referred No Primary Care Physician [facility] 100/[facility] Start: 04-09-2022 Non-patient / Non-visit No Kristina cormier Care Physician [facility] Inpatient Physicians Start: 04-08-2022 Non-patient / Non-visit No Kristina cormier Care Physician [facility] Inpatient Physicians Start: 04-07-2022 Non-patient / Non-visit No Kristina cormier Care Physician [facility] Inpatient Physicians Start: 04-06-2022 Non-patient / Non-visit No Kristina cormier Care Physician [facility] Inpatient Physicians Start: 04-06-2022 End: 04-09-2022 Evaluation and management of inpatient No Primary Care Physician [facility]-Medical Surgical 3 Start: 04-05-2022 End: 04-05-2022 Emergency department patient visit No Primary Care Physician [facility]-Emergency Department Start: 03-23-2022 End: 03-23-2022 Subsequent hospital visit by physician Santiago [facility] Work Phone: Radiology Comment on above: Acute cough [R05.1] Start: 03-23-2022 End: 03-23-2022 Patient encounter procedure Sid Bravo MD Work Phone: [facility] Comment on above: Acute cough (Primary Dx); Mild intermittent asthmatic bronchitis without complication Start: 02-16-2022 End: 02-16-2022 Patient encounter procedure No Primary Care Physician [facility] Start: 02-02-2022 End: 02-02-2022 Patient encounter procedure Alyssa Jaime APRN.CNP Work Phone: [facility] Comment on above: Abnormal lung scan ( Primary Dx); Nausea and vomiting, unspecified vomiting type Start: 02-01-2022 End: 02-01-2022 Emergency department patient visit No Primary Care Physician [facility]-Emergency Department Start: 01-30-2022 End: 01-30-2022 Patient encounter procedure No Primary Care Physician [facility]-Laboratory Start: 01-30-2022 End: 01-30-2022 Patient encounter procedure No Primary Care Physician [facility] Gastroenterology Start: 01-26-2022 End: 01-26-2022 Emergency department patient visit [facility]-Emergency Department Start: 01-23-2022 End: 01-23-2022 [facility] Start: 01-22-2022 End: 01-22-2022 Emergency department [facility] Start: 01-16-2022 End: 01-16-2022 Emergency department patient visit [facility] Start: 11-16-2021 End: 11-16-2021 Emergency department patient [facility] Start: 10-29-2021 End: 10-29-2021 Emergency department patient [facility] Start: 10-24-2021 End: 10-24-2021 Emergency department patient [facility] Start: 08-10-2021 End: 08-11-2021 Emergency department patient [facility] Start: 05-15-2021 End: 05-15-2021 Subsequent hospital visit by physician [facility] Work Phone: Radiology Comment on above: Cough [R05.9] Procedures Date Procedure Procedure Detail Performing Clinician Start: 01-04-2025 Computed tomography of abdomen and pelvis with intravenous contrast Amy Brown CT TECH-C Work Phone: Start: 01-04-2025 Benzodiazepine measu rement, urine Amy Brown CT TECH-C Work Phone: Start: 01-04-2025 Cocaine measurement, urine Amy Brown CT TECH-C Work Phone: Start: 01-04-2025 Methadone measurement, urine Amy Brown CT TECH-C Work Phone: Start: 01-04-2025 Urine cannabinoid measurement Amy Brown CT TECH-C Work Phone: Start: 01-04-2025 Urine opiate measurement Amy Solorzano CT TECH-C Work Phone: Start: 01-04-2025 Venous oxygen satura tion measurement Amy Solorzano CT TECH-C Work Phone: Start: 01-04-2025 Blood count smear mc rscp w/mnl difrntl wbc count Amy Solorzano CT TECH-C Work Phone: Start: 01-04-2025 Estimated creatinine clearance Amy Solorzano CT TECH-C Work Phone: Start: 01-04-2025 Mean corpuscular hem oglobin concentration determination Amy Solorzano CT TECH-C Work Phone: Start: 01-04-2025 Nucleated red blood cell count procedure Amy Solorzano CT TECH-C Work Phone: Start: 01-04-2025 Osmolality measureme nt, serum Amy Solorzano CT TECH-C Work Phone: Start: 01-04-2025 Platelet mean volume determination Amy Solorzano CT TECH-C Work Phone: Start: 01-04-2025 Triacylglycerol lipa se measurement Amy Solorzano CT TECH-C Work Phone: Start: 01-02-2025 Blood count smear mc rscp w/mnl difrntl wbc count Amy Solorzano CT TECH-C Work Phone: Start: 01-02-2025 Estimated creatinine clearance Amy Solorzano CT TECH-C Work Phone: Start: 01-02-2025 Mean corpuscular hem oglobin concentration determination Amy Solorzano CT TECH-C Work Phone: Start: 01-02-2025 Nucleated red blood cell count procedure Amy Solorzano CT TECH-C Work Phone: Start: 01-02-2025 Platelet mean volume determination Amy Solorzano CT TECH-C Work Phone: Start: 01-02-2025 Triacylglycerol lipa se measurement Amy Solorzano CT TECH-C Work Phone: Start: 01-01-2025 Estimated creatinine clearance Amy Solorzano CT TECH-C Work Phone: Start: 01-01-2025 Oxygen measurement Mirian Solorzano CT TECH-C Work Phone: Start: 01-01-2025 Venous oxygen satura tion measurement Amy Solorzano CT TECH-C Work Phone: Start: 12-31-2024 Estimated creatinine clearance Amy Solorzano CT TECH-C Work Phone: Start: 12-31-2024 Venous oxygen satura tion measurement Amy Solorzano CT TECH-C Work Phone: Start: 12-31-2024 Blood count smear mc rscp w/mnl difrntl wbc count Amy Solorzano CT TECH-C Work Phone: Start: 12-31-2024 Mean corpuscular hem oglobin concentration determination Amy Solorzano CT TECH-C Work Phone: Start: 12-31-2024 Nucleated red blood cell count procedure Amy Solorzano CT TECH-C Work Phone: Start: 12-31-2024 Platelet mean volume determination Amy Solorzano CT TECH-C Work Phone: Start: 12-31-2024 Urine microscopy: red cells Amy Solorzano CT TECH-C Work Phone: Start: 12-31-2024 Urnls dip stick/tabl et reagent auto microscopy Amy Solorzano CT TECH-C Work Phone: Start: 12-31-2024 Estimated creatinine clearance Amy Solorzano CT TECH-C Work Phone: Start: 12-30-2024 Venous oxygen satura tion measurement Amy Solorzano CT TECH-C Work Phone: Start: 12-30-2024 Urine culture Amy kim CT TECH-C Work Phone: Start: 12-30-2024 Benzodiazepine measu rement, urine Amy Solorzano CT TECH-C Work Phone: Start: 12-30-2024 Cocaine measurement, urine Amy Solorzano CT TECH-C Work Phone: Start: 12-30-2024 Methadone measurement, urine Amy Solorzano CT TECH-C Work Phone: Start: 12-30-2024 Urine cannabinoid measurement Amy Solorzano CT TECH-C Work Phone: Start: 12-30-2024 Urine microscopy: red cells Amy Solorzano CT TECH-C Work Phone: Start: 12-30-2024 Urine opiate measurement Amy Solorzano CT TECH-C Work Phone: Start: 12-30-2024 Urnls dip stick/tabl et reagent auto microscopy Amy Solorzano CT TECH-C Work Phone: Start: 12-30-2024 Blood count smear mc rscp w/mnl difrntl wbc count Amy Solorzano CT TECH-C Work Phone: Start: 12-30-2024 Estimated creatinine clearance Amy Solorzano CT TECH-C Work Phone: Start: 12-30-2024 Mean corpuscular hem oglobin concentration determination Amy Solorzano CT TECH-C Work Phone: Start: 12-30-2024 Nucleated red blood cell count procedure Amy Solorzano CT TECH-C Work Phone: Start: 12-30-2024 Osmolality measureme nt, serum Amy Solorzano CT TECH-C Work Phone: Start: 12-30-2024 Platelet mean volume determination Amy Solorzano CT TECH-C Work Phone: Start: 12-30-2024 Serum inorganic phos phate measurement Amy Solorzano CT TECH-C Work Phone: Start: 12-30-2024 Triacylglycerol lipa se measurement Amy Solorzano CT TECH-C Work Phone: Start: 12-25-2024 Ultrasonography of abdomen Amy Solorzano CT TECH-C Work Phone: Start: 12-13-2024 Blood count smear mc rscp w/mnl difrntl wbc count Amy Solorzano CT TECH-C Work Phone: Start: 12-13-2024 Mean corpuscular hem oglobin concentration determination Amy Solorzano CT TECH-C Work Phone: Start: 12-13-2024 Nucleated red blood cell count procedure Amy Solorzano CT TECH-C Work Phone: Start: 12-13-2024 Platelet mean volume determination Amy Solorzano CT TECH-C Work Phone: Start: 11-28-2024 Blood count smear mc rscp w/mnl difrntl wbc count Amy Solorzano CT TECH-C Work Phone: Start: 11-28-2024 Estimated creatinine clearance Amy Solorzano CT TECH-C Work Phone: Start: 11-28-2024 Mean corpuscular hem oglobin concentration determination Amy Solorzano CT TECH-C Work Phone: Start: 11-28-2024 Nucleated red blood cell count procedure Amy Solorzano CT TECH-C Work Phone: Start: 11-28-2024 Platelet mean volume determination Amy Solorzano CT TECH-C Work Phone: Start: 11-27-2024 Computed tomography of abdomen and pelvis with contrast Amy Solorzano CT TECH-C Work Phone: Start: 11-26-2024 Plain X-ray abdomen Glendy Solorzano CT TECH-C Work Phone: Start: 11-25-2024 Blood culture [address]ym kim CT TECH-C Work Phone: Start: 11-25-2024 Assay of lactate Manjinder Solorzano CT TECH-C Work Phone: Start: 11-25-2024 Computed tomography of abdomen and pelvis with intravenous contrast Amy Solorznao CT TECH-C Work Phone: Start: 11-25-2024 Urine microscopy: red cells Amy Solorzano CT TECH-C Work Phone: Start: 11-25-2024 Urnls dip stick/tabl et reagent auto microscopy Amy Solorzano CT TECH-C Work Phone: Start: 11-25-2024 Plain X-ray abdomen Glendy Solorzano CT TECH-C Work Phone: Start: 11-25-2024 Estimated creatinine clearance Amy Solorzano CT TECH-C Work Phone: Start: 10-17-2024 Blood count smear mc rscp w/mnl difrntl wbc count Amy Solorzano CT TECH-C Work Phone: Start: 10-17-2024 Mean corpuscular hem oglobin concentration determination Amy Solorzano CT TECH-C Work Phone: Start: 10-17-2024 Nucleated red blood cell count procedure Amy Solorzano CT TECH-C Work Phone: Start: 10-17-2024 Platelet mean volume determination Amy Solorzano CT TECH-C Work Phone: Start: 10-17-2024 Total cholesterol:HD L ratio measurement Amy Solorzano CT TECH-C Work Phone: Start: 10-17-2024 Vitamin D, 25-hydrox y measurement Amy Solorzano NP-C Work Phone: Comment on above: Vitamin D StatusDefi ciency: <20 ng/mL (50nmol/L)Insufficiency: 20-30 ng/mL (50-75 nmol/L)Sufficiency: 30-100 ng/mL (75-250 nmol/L)Toxicity: >100 ng/mL (>250 nmol/L) Start: 07-03-2024 Radiologic exam ches t 2 views Vadim GRADY Work Phone: Start: 11-08-2023 MRI of [...] Care Physician Start: 05-18-2023 Mycology culture No [facility] Care Physician Start: 05-08-2023 Plain X-ray abdomen [facility] Work Phone: Start: 05-07-2023 Incision and drainag e of abscess [facility] Work Phone: Start: 05-04-2023 MRI of lower extremity [facility] Work Phone: Start: 05-04-2023 Incision and drainag e of abscess [facility] Work Phone: Start: 05-04-2023 Anaerobic microbial culture No Primary Care Physician Start: 05-04-2023 Bacteria identified in Blood by Culture No Primary Care Physician Start: 05-04-2023 Fungus stain method No [facility] Care Physician Start: 05-04-2023 Investigation of tra nsfusion reaction [facility] Work Phone: Start: 05-04-2023 Microbial culture, routine [facility] Work Phone: Start: 05-04-2023 Mycology culture No [facility] Physician Start: 05-04-2023 [facility] Work Phone: Start: 05-04-2023 X-ray of both feet [facility] Work Phone: Start: 03-06-2023 Computed tomography of abdomen and pelvis with contrast [facility] Work Phone: Start: 03-06-2023 X-ray of both feet [facility] Work Phone: Start: 02-26-2023 Computed tomography of abdomen and pelvis with intravenous contrast [facility] Work Phone: Start: 02-24-2023 Plain X-ray of toe [facility] Work Phone: Start: 02-17-2023 Urinalysis DEWAYNE Mendoza Comment on above: Result Comment: URIN ALYSIS Performed By: [id number] #### [facility],[address] [place] [address] Start: 02-08-2023 Computed tomography of abdomen and pelvis with contrast [facility] Work Phone: Start: 01-24-2023 Ecg routine ecg w/le ast 12 lds trcg only w/o i&r Stephan Ramirez MD Work Phone: Start: 01-24-2023 Comprehensive metabo lic panel Stephan Ramirez MD Work Phone: Start: 01-24-2023 Urinalysis complete panel - Urine Stephan Ramirez MD Work Phone: Start: 01-24-2023 Urine test visual color cmprsn meths Stephan Ramirez MD Work Phone: Start: 01-24-2023 Urnls dip stick/tabl et reagent auto microscopy Stephan Ramirez MD Work Phone: Start: 01-17-2023 Urinalysis DEWAYNE Mendoza Comment on above: Result Comment: URIN ALYSIS Performed By: [id number] #### [facility],[address] [address] Start: 01-14-2023 Urine culture [facility] Work Phone: Start: 01-14-2023 Computed tomography of abdomen and pelvis with intravenous contrast [facility] Work Phone: Start: 08-12-2022 US urinary [...] ches t 2 views Andres Lopezjosé luis JANG Work Phone: Acid fast bacilli culture Dr [...] Primary Care Physician Microbial culture, routine D reji. Sophy Gibbons Work Phone: Urine culture No Primary Car e Physician Urine culture Dr. Sophy leyva Work Phone: Urine culture Dr. Sophy leyva Work Phone: Viral antigen assay No Prima ry Care Physician Plan of Treatment Date Care Activity Detail Author Start: 01-28-2042 Zoster Vaccines (1 of 2) Zoster Vaccines (1 of 2) [facility] Start: 02-15-2025 ambulatory Facility:[facility] Start: 01-11-2025 ambulatory Facility:[facility] Start: 01-04-2025 [facility] Start: 01-02-2025 [facility] Start: 01-01-2025 Patient discharge [facility] Start: 01-01-2025 [facility] Start: 12-31-2024 End: 01-01-2025 [facility] Start: 12-31-2024 Application of intermittent pneumatic compression device [facility] Start: 12-31-2024 End: 12-31-2024 Following clinical pathway protocol [facility] Start: 12-31-2024 Lab findings surveillance [facility] Start: 12-31-2024 Notification of physician [facility] Start: 12-31-2024 Patient education [facility] Start: 12-31-2024 Patient referral to dietitian [facility] Start: 12-31-2024 Vital signs measurements [facility] Start: 12-31-2024 Admission procedure [facility] Start: 12-31-2024 Thyroid stimulating hormone measurement [facility] Start: 12-31-2024 Hospital admission, emergency, from emergency room, medical nature [facility] Start: 12-31-2024 Urine test [facility] Start: 12-31-2024 Following clinical pathway protocol [facility] Start: 12-31-2024 Patient discharge [facility] Start: 12-30-2024 [facility] Start: 12-30-2024 Bacteria identified in Urine by Culture Urine Culture [facility] Start: 12-30-2024 Urine culture [facility] Start: 12-30-2024 Assessment of risk of venous thromboembolism [facility] Start: 12-30-2024 Continuous pulse oximetry [facility] Start: 12-30-2024 End: 12-30-2024 Following clinical pathway protocol [facility] Start: 12-30-2024 Incentive spirometry [facility] Start: 12-30-2024 Insertion of catheter into peripheral vein [facility] Start: 12-30-2024 Lab findings surveillance [facility] Start: 12-30-2024 Measuring intake and output [facility] Start: 12-30-2024 Notification of physician [facility] Start: 12-30-2024 Oxygen therapy [facility] Start: 12-30-2024 Patient education [facility] Start: 12-30-2024 Providing care according to standard [facility] Start: 12-30-2024 Vital signs measurements [facility] Start: 12-30-2024 [facility] Start: 12-30-2024 Verification routine [facility] Start: 12-30-2024 Hospital admission, emergency, from emergency room, medical nature [facility] Start: 12-30-2024 Admission procedure [facility] Start: 12-30-2024 End: 12-31-2024 [facility] Start: 12-30-2024 Osmolality measurement, serum [facility] Start: 12-30-2024 Serum inorganic phosphate measurement [facility] Start: 12-30-2024 Patient referral to dietitian [facility] Start: 11-28-2024 Patient discharge [facility] Start: 11-28-2024 [facility] Start: 11-26-2024 End: 11-27-2024 [facility] Start: 11-26-2024 Inhalation therapy procedure [facility] Start: 11-25-2024 Following clinical pathway protocol [facility] Start: 11-25-2024 Assessment of risk of venous thromboembolism [facility] Start: 11-25-2024 Care regimes management [facility] Start: 11-25-2024 Insertion of catheter into peripheral vein [facility] Start: 11-25-2024 Notification of physician [facility] Start: 11-25-2024 Providing care according to standard [facility] Start: 11-25-2024 Provision of activity privileges [facility] Start: 11-25-2024 Referral to general surgeon [facility] Start: 11-25-2024 Referral to occupational therapist [facility] Start: 11-25-2024 Referral to service [facility] Start: 11-25-2024 End: 11-25-2024 [facility] Start: 11-25-2024 Hospital admission, emergency, from emergency room, medical nature [facility] Start: 11-25-2024 Bacteria identified in Blood by Culture Blood Culture [facility] Start: 11-25-2024 Blood culture Blood Culture [facility] Start: 11-25-2024 Admission procedure [facility] Start: 11-25-2024 Verification routine [facility] Start: 11-25-2024 [facility] Start: 03-12-2024 Covid-19 Vaccine ( season) Covid-19 Vaccine () [facility] Start: 03-12-2024 Influenza vaccination Influenza Vaccine (#1) [facility] Start: 02-24-2024 ANNUAL PCP TEAM CHRONIC DISEASE VISIT ANNUAL PCP TEAM CHRONIC DISEASE VISIT [facility] Start: 01-12-2024 Hemoglobin A1c measurement HbA1C [facility] Start: 07-23-2023 Amputation foot transmetarsal AMPUTATION THRU METATARSAL [facility] Start: 07-23-2023 Anes open proc bones lower leg/ankle/foot nos ANESTH LOWER LEG BONE SURG [facility] Start: 07-23-2023 Injection aa&/strd sciatic nerve NJX AA&/STRD SCIATIC NRV IMG [facility] Start: 07-23-2023 Musc myocutaneous/fasciocutaneous flap lxtr MUSCLE-SKIN GRAFT LEG [facility] Start: 07-23-2023 Smr prim src gram/giemsa stain bct fungi/cell SMEAR GRAM STAIN [facility] Start: 07-23-2023 [facility] Start: 07-23-2023 Patient discharge [facility] Start: 07-23-2023 X-ray of both feet [facility] Start: 07-23-2023 XR Foot GE 3 Views [facility] Start: 07-12-2023 [facility] Start: 06-28-2023 [facility] Start: 06-27-2023 [facility] Start: 06-27-2023 Blood chemistry [facility] Start: 06-26-2023 [facility] Start: 06-25-2023 [facility] Start: 05-21-2023 Hemoglobin A1c measurement HbA1C [facility] Start: 05-21-2023 Hemoglobin A1c/Hemoglobin.total in Blood HBA1C [facility] Start: 05-18-2023 Anaerobic microbial culture Anaerobic Culture [facility] Start: 05-18-2023 [facility] Start: 05-09-2023 Patient discharge [facility] Start: 05-08-2023 Inhalation therapy procedure [facility] Start: 05-07-2023 [facility] Start: 05-04-2023 [facility] Start: 05-04-2023 Ambulation without limitation [facility] Start: 05-04-2023 Assessment of risk of venous thromboembolism [facility] Start: 05-04-2023 Care regimes management [facility] Start: 05-04-2023 Consultation for treatment [facility] Start: 05-04-2023 Insertion of catheter into peripheral vein [facility] Start: 05-04-2023 Notification of physician [facility] Start: 05-04-2023 Patient referral to dietitian [facility] Start: 05-04-2023 Providing care according to standard [facility] Start: 05-04-2023 [facility] Start: 05-04-2023 Following clinical pathway protocol [facility] Start: 05-04-2023 Incision and drainage of abscess [facility] Start: 05-04-2023 Admission procedure [facility] Start: 05-04-2023 Hospital admission, emergency, from emergency room, medical nature [facility] Start: 05-04-2023 End: 05-04-2023 Blood culture [facility] Start: 05-04-2023 End: 05-04-2023 [facility] Start: 05-04-2023 [facility] Start: 04-15-2023 [facility] Start: 03-12-2023 Covid-19 Vaccine ( season) Covid-19 Vaccine () [facility] Start: 03-12-2023 Influenza vaccination [facility] Start: 01-25-2023 Blood chemistry [facility] Start: 01-25-2023 Computed tomography of abdomen and pelvis with intravenous contrast Abdomen/Pelvis W IV Cont ONLY [facility] Start: 01-25-2023 Electrocardiographic procedure [facility] Start: 01-25-2023 Lipase measurement [facility] Start: 01-25-2023 [facility] Start: 01-19-2023 [facility] Start: 01-18-2023 [facility] Start: 01-17-2023 [facility] Start: 01-16-2023 [facility] Start: 01-15-2023 Patient discharge [facility] Start: 01-14-2023 Referral to service [facility] Start: 01-14-2023 Assessment of risk of venous thromboembolism [facility] Start: 01-14-2023 Care regimes management [facility] Start: 01-14-2023 Insertion of catheter into peripheral vein [facility] Start: 01-14-2023 Measuring intake and output [facility] Start: 01-14-2023 Patient referral to dietitian [facility] Start: 01-14-2023 Providing care according to standard [facility] Start: 01-14-2023 Provision of activity privileges [facility] Start: 01-14-2023 [facility] Start: 01-14-2023 Following clinical pathway protocol [facility] Start: 01-14-2023 Verification routine [facility] Start: 01-14-2023 Admission procedure [facility] Start: 01-12-2023 US Gallbladder [facility] Start: 01-12-2023 US Pelvis transvaginal [facility] Start: 10-08-2022 End: 12-08-2022 Bacteria identified in Wound by Culture ABSCESS AND WOUND CULTURE WITH GRAM STAIN Microbiology Routine Toe infection Expected: 10/08/2022, Expires: 12/08/2022 [facility] Work Phone: Comment on above: Expected: 10/08/2022, Expires: Start: 08-15-2022 Patient discharge [facility] Start: 08-14-2022 Provision of activity privileges [facility] Start: 08-13-2022 End: 08-13-2022 Blood culture [facility] Start: 08-13-2022 [facility] Start: 08-13-2022 Inhalation therapy procedure [facility] Start: 08-12-2022 Following clinical pathway protocol [facility] Start: 08-12-2022 Assessment of risk of venous thromboembolism [facility] Start: 08-12-2022 Care regimes management [facility] Start: 08-12-2022 Insertion of catheter into peripheral vein [facility] Start: 08-12-2022 Measuring intake and output [facility] Start: 08-12-2022 Notification of physician [facility] Start: 08-12-2022 Providing care according to standard [facility] Start: 08-12-2022 Provision of activity privileges [facility] Start: 08-12-2022 [facility] Start: 08-12-2022 Admission procedure [facility] Start: 08-12-2022 [facility] Start: 08-12-2022 Patient referral to dietitian [facility] Start: 07-12-2022 DEPRESSION ASSESSMENT DEPRESSION ASSESSMENT [facility] Start: 06-30-2022 Blood chemistry [facility] Work Phone: Start: 06-29-2022 Patient discharge [facility] Start: 06-29-2022 Blood chemistry [facility] Work Phone: Start: 06-28-2022 Blood chemistry [facility] Work Phone: Start: 06-27-2022 Blood chemistry [facility] Work Phone: Start: 06-26-2022 Wound care [facility] Start: 06-26-2022 Elevation of affected extremity [facility] Start: 06-26-2022 [facility] Start: 06-26-2022 Debridement Debridement Wound (Right) [facility] Work Phone: Start: 06-26-2022 Blood chemistry [facility] Work Phone: Start: 06-25-2022 Referral to service [facility] Start: 06-25-2022 Consultation [facility] Start: 06-24-2022 Assessment of risk of venous thromboembolism [facility] Start: 06-24-2022 Care regimes management [facility] Start: 06-24-2022 Consultation for treatment [facility] Start: 06-24-2022 Insertion of catheter into peripheral vein [facility] Start: 06-24-2022 Providing care according to standard [facility] Start: 06-24-2022 Provision of activity privileges [facility] Start: 06-24-2022 Referral to occupational therapist [facility] Start: 06-24-2022 Referral to project developer [facility] [facility] Start: 06-24-2022 Referral to service [facility] Start: 06-24-2022 [facility] Start: 06-24-2022 Following clinical pathway protocol [facility] Start: 06-24-2022 End: 06-25-2022 [facility] Start: 06-24-2022 Verification routine [facility] Work Phone: Start: 06-24-2022 Admission procedure [facility] Start: 06-24-2022 End: 06-24-2022 Blood culture [facility] Work Phone: Start: 06-24-2022 Patient referral to dietitian [facility] Start: 06-23-2022 Cul bact aerobic addl meths definitive ea isol CULTURE AEROBIC IDENTIFY [facility] Start: 06-23-2022 Cul bact xcpt urine blood/stool aerobic isol CULTURE OTHR SPECIMN AEROBIC [facility] Start: 06-23-2022 Iadna s aureus amplified probe tq STAPH A DNA AMP PROBE [facility] Start: 06-23-2022 Smr prim src gram/giemsa stain bct fungi/cell SMEAR GRAM STAIN [facility] Start: 06-23-2022 [facility] Work Phone: Start: 04-27-2022 Hemoglobin A1c/Hemoglobin.total in Blood HBA1C [facility] Start: 04-09-2022 Patient discharge [facility] Work Phone: Start: 04-07-2022 Consultation [facility] Work Phone: Start: 04-07-2022 End: 04-07-2022 Referral to service [facility] Work Phone: Start: 04-06-2022 Elevation of affected extremity [facility] Work Phone: Start: 04-06-2022 [facility] Work Phone: Start: 04-06-2022 End: 04-06-2022 Following clinical pathway protocol [facility] Work Phone: Start: 04-06-2022 Ambulation without limitation [facility] Work Phone: Start: 04-06-2022 Assessment of risk of venous thromboembolism [facility] Work Phone: Start: 04-06-2022 Care regimes management [facility] Work Phone: Start: 04-06-2022 Consultation for treatment [facility] Work Phone: Start: 04-06-2022 Elevation of affected extremity [facility] Work Phone: Start: 04-06-2022 Insertion of catheter into peripheral vein [facility] Work Phone: Start: 04-06-2022 Notification of physician [facility] Work Phone: Start: 04-06-2022 Patient referral to dietitian [facility] Work Phone: Start: 04-06-2022 Providing care according to standard [facility] Work Phone: Start: 04-06-2022 Referral to project developer [facility] Work Phone: Start: 04-06-2022 Wound care [facility] Work Phone: Start: 04-06-2022 [facility] Work Phone: Start: 04-06-2022 Verification routine [facility] Work Phone: Start: 04-06-2022 Admission procedure [facility] Work Phone: Start: 04-06-2022 End: 04-07-2022 [facility] Work Phone: Start: 04-06-2022 [facility] Work Phone: Start: 04-05-2022 Assay of lactate ASSAY OF LACTIC ACID [facility] Work Phone: Start: 04-05-2022 Basic metabolic panel calcium total METABOLIC PANEL TOTAL CA [facility] Work Phone: Start: 04-05-2022 Blood count complete auto&auto difrntl wbc COMPLETE CBC W/AUTO DIFF WBC [facility] Work Phone: Start: 04-05-2022 Culture bacterial blood aerobic w/id isolates BLOOD CULTURE FOR BACTERIA [facility] Work Phone: Start: 04-05-2022 Emergency department visit moderate severity EMERGENCY DEPT VISIT [facility] Work Phone: Start: 04-05-2022 Iv infusion ther proph addl sequential to 1 hr TX/PROPH/DG ADDL SEQ IV INF [facility] Work Phone: Start: 04-05-2022 Iv infusion therapy prophylaxis/dx ea hour THER/PROPH/DIAG IV INF ADDON [facility] Work Phone: Start: 04-05-2022 Iv infusion therapy/prophylaxis /dx 1st to [facility] Start: 04-05-2022 Radex foot complete minimum 3 views X-RAY EXAM OF FOOT [facility] Work Phone: Start: 04-05-2022 End: 04-05-2022 Blood culture [facility] Work Phone: Start: 03-23-2022 End: 04-06-2022 SARS-CoV-2 (COVID-19) RNA [Presence] in Respiratory specimen by REBECCA with probe detection 2019 [facility] Microbiology Routine Acute cough Mild intermittent asthmatic bronchitis without complication Expected: 03/23/2022, Expires: 04/06/2022 [facility] Work Phone: Comment on above: Expected: 03/23/2022, Expires: 2 Start: 03-12-2022 Influenza vaccination INFLUENZA (#1) [facility] Start: 01-30-2022 Celiac disease screen [facility] Work Phone: Start: 01-30-2022 Immunoglobulin measurement [facility] Work Phone: Start: 01-30-2022 Serum immunofixation [facility] Work Phone: Start: 01-30-2022 Vitamin B12 measurement [facility] Work Phone: Start: 01-30-2022 [facility] Work Phone: Start: 01-28-2022 HPV TESTING HPV TESTING [facility] Start: 01-28-2022 Screening for malignant neoplasm of cervix [facility] Start: 08-25-2021 COVID-19 VACCINE (2 - Moderna series) COVID-19 VACCINE (2 - Moderna series) [facility] Start: 03-10-2020 3 comp foot exam completed DIABETIC FOOT EXAM [facility] Start: 03-10-2020 ANNUAL PCP TEAM CHRONIC DISEASE VISIT ANNUAL PCP TEAM CHRONIC DISEASE VISIT [facility] Start: 03-10-2020 Diabetic foot examination Diabetic Foot Exam [facility] Start: 05-03-2018 PAP TESTING PAP TESTING [facility] Start: 05-03-2018 Screening for malignant neoplasm of cervix Pap Testing [facility] Start: 05-03-2016 Screening for malignant neoplasm of cervix Cervical Cancer Screening [facility] Start: 06-07-2014 Hepatitis B surface antibody level LDL CHOLESTEROL [facility] Start: 04-12-2014 Hepatitis B screening URINE ALBUMIN:CREATININE RATIO [facility] Start: 03-31-2014 Glaucoma screening Dilated Retinal Exam [facility] Start: 03-31-2014 Hepatitis C antibody, confirmatory test DILATED RETINAL EXAM [facility] Start: 03-06-2014 PNEUMOCOCCAL (2 - PCV) PNEUMOCOCCAL (2 - PCV) [facility] Start: 03-06-2014 Pneumococcal vaccination [facility] Start: 03-06-2014 Pneumococcal Vaccine: Pediatrics (0 to 5 Years) and At-Risk Patients (6 to 64 Years) (2 - PCV) Pneumococcal Vaccine: Pediatrics (0 to 5 Years) and At-Risk Patients (6 to 64 Years) (2 - PCV) [facility] Start: 01-28-2013 Screening for malignant neoplasm of cervix Pap Smear [facility] Start: 01-28-2011 DTaP/Tdap/Td Vaccines (1 - Tdap) DTaP/Tdap/Td Vaccines (1 - Tdap) [facility] Start: 01-28-2011 HEPATITIS B (1 of 3 - Risk 3-dose series) HEPATITIS B (1 of 3 - Risk 3-dose series) [facility] Start: 01-28-2011 Hepatitis B Vaccine (1 of 3 - 19+ 3-dose series) Hepatitis B Vaccine (1 of 3 - 19+ 3-dose series) [facility] Start: 01-28-2011 Urine microalbumin profile [facility] Start: 01-28-2010 HEPATITIS C SCREENING HEPATITIS C SCREENING [facility] Start: 01-28-2010 Hepatitis C screening Hepatitis C Screening [facility] Start: 01-28-2010 HIV SCREENING HIV SCREENING [facility] Start: 01-28-2010 HIV screening HIV Screening [facility] Start: 2004 Adult depression screening assessment DEPRESSION SCREENING [facility] Start: 01-28-2002 Diabetic foot examination Diabetes: Foot Exam [facility] Start: 01-28-2002 Glaucoma screening Diabetes: Retinopathy Screening [facility] Start: 01-28-2002 Preventive dental service Diabetes: Dental Exam [facility] Start: 01-28-1993 MMR Vaccines (1 of 1 - Standard series) MMR Vaccines (1 of 1 - Standard series) [facility] Start: 01-28-1993 Varicella vaccination Varicella Vaccines (1 of 2 - 2-dose childhood series) [facility] Start: 1992 COVID-19 VACCINE (#1) COVID-19 VACCINE (#1) [facility] Start: 1992 Hemoglobin A1c measurement Diabetes: Hemoglobin A1C [facility] Start: 1992 HEPATITIS B (1 of 3 - 3-dose series) HEPATITIS B (1 of 3 - 3-dose series) [facility] Start: 1992 Hepatitis B Vaccine (1 of 3 - 3-dose series) Hepatitis B Vaccine (1 of 3 - 3-dose series) [facility] Start: 1992 Hepatitis B Vaccines (1 of 3 - 3-dose series) Hepatitis B Vaccines (1 of 3 - 3-dose series) [facility] Start: 1992 HIV screening HIV Screening [facility] Start: 1992 Lipid panel Lipid Panel [facility] Acetone [Presence] i n Serum or Plasma [facility] Acid fast bacilli culture [facility] Work Phone: Acid fast bacilli culture [facility] Alanine aminotransfe rase [Enzymatic activity/volume] in Serum or Plasma [facility] Alanine aminotransfe rase [Enzymatic activity/volume] in Serum or Plasma [facility] Alanine aminotransfe rase [Enzymatic activity/volume] in Serum or Plasma [facility] Alanine aminotransfe rase [Enzymatic activity/volume] in Serum or Plasma [facility] Alanine aminotransfe rase [Enzymatic activity/volume] in Serum or Plasma [facility] Albumin [Mass/volume ] in Serum or Plasma [facility] Albumin [Mass/volume ] in Serum or Plasma [facility] Albumin [Mass/volume ] in Serum or Plasma [facility] Albumin [Mass/volume ] in Serum or Plasma [facility] Albumin [Mass/volume ] in Serum or Plasma [facility] Albumin [Moles/volum e] in Serum or Plasma [facility] Work Phone: Albumin/Globulin ratio [facility] Work Phone: Alkaline phosphatase [Enzymatic activity/volume] in Serum or Plasma [facility] Alkaline phosphatase [Enzymatic activity/volume] in Serum or Plasma [facility] Alkaline phosphatase [Enzymatic activity/volume] in Serum or Plasma [facility] Alkaline phosphatase [Enzymatic activity/volume] in Serum or Plasma [facility] Alkaline phosphatase [Enzymatic activity/volume] in Serum or Plasma [facility] Anion gap in Serum or Plasma [facility] Anion gap measurement [facility] Work Phone: Anion gap measurement [facility] Anion gap measurement [facility] Anion gap measurement [facility] Anion gap measurement [facility] Anion gap measurement [facility] Anion gap measurement [facility] Antibody to lupus La protein measurement [facility] Work Phone: Antibody to SS-A measurement [facility] Work Phone: Aspartate aminotrans ferase [Enzymatic activity/volume] in Serum or Plasma [facility] Aspartate aminotrans ferase [Enzymatic activity/volume] in Serum or Plasma [facility] Aspartate aminotrans ferase [Enzymatic activity/volume] in Serum or Plasma [facility] Aspartate aminotrans ferase [Enzymatic activity/volume] in Serum or Plasma [facility] Aspartate aminotrans ferase [Enzymatic activity/volume] in Serum or Plasma [facility] Bacteria identified in Blood by Culture Blood Culture [facility] Bacteria identified in Unspecified specimen by Anaerobe culture [facility] Work Phone: Bacteria identified in Unspecified specimen by Anaerobe culture [facility] Bacteria identified in Urine by Culture Urine Culture [facility] Beta hydroxybutyrate [Mass/volume] in Serum or Plasma [facility] Beta hydroxybutyrate [Mass/volume] in Serum or Plasma [facility] Bilirubin measurement, urine [facility] Bilirubin measurement, urine [facility] Bilirubin, total measurement [facility] Bilirubin, total measurement [facility] Bilirubin, total measurement [facility] Bilirubin, total measurement [facility] Bilirubin, total measurement [facility] Bilirubin.direct [Mass/volume] in Serum or Plasma [facility] Blood culture [facility] Work Phone: BUN/Creatinine ratio [facility] Work Phone: BUN/Creatinine ratio [facility] BUN/Creatinine ratio [facility] BUN/Creatinine ratio [facility] BUN/Creatinine ratio [facility] BUN/Creatinine ratio [facility] BUN/Creatinine ratio [facility] BUN/Creatinine ratio [facility] Calcium [Mass/volume ] in Serum or Plasma [facility] Work Phone: Calcium [Mass/volume ] in Serum or Plasma [facility] Calcium [Mass/volume ] in Serum or Plasma [facility] Calcium [Mass/volume ] in Serum or Plasma [facility] Calcium [Mass/volume ] in Serum or Plasma [facility] Calcium [Mass/volume ] in Serum or Plasma [facility] Calcium [Mass/volume ] in Serum or Plasma [facility] Calcium [Mass/volume ] in Serum or Plasma [facility] Carbon dioxide, tota l [Moles/volume] in Central venous blood [facility] Carbon dioxide, tota l [Moles/volume] in Serum or Plasma [facility] Work Phone: Carbon dioxide, tota l [Moles/volume] in Serum or Plasma [facility] Carbon dioxide, tota l [Moles/volume] in Serum or Plasma [facility] Carbon dioxide, tota l [Moles/volume] in Serum or Plasma [facility] Carbon dioxide, tota l [Moles/volume] in Serum or Plasma [facility] Carbon dioxide, tota l [Moles/volume] in Serum or Plasma [facility] Carbon dioxide, tota l [Moles/volume] in Serum or Plasma [facility] CBC W Auto Different ial panel - Blood [facility] Centromere protein B Ab [Units/volume] in Serum [facility] Work Phone: Chloride [Moles/volu me] in Serum or Plasma [facility] Work Phone: Chloride [Moles/volu me] in Serum or Plasma [facility] Chloride [Moles/volu me] in Serum or Plasma [facility] Chloride [Moles/volu me] in Serum or Plasma [facility] Chloride [Moles/volu me] in Serum or Plasma [facility] Chloride [Moles/volu me] in Serum or Plasma [facility] Chloride [Moles/volu me] in Serum or Plasma [facility] Choriogonadotropin.b eta subunit ( test) [Presence] in Serum or Plasma [facility] Chromatin Ab [Units/ volume] in Serum or Plasma [facility] panel - Serum or Plasma [facility] Creatinine [Mass/vol ume] in Serum or Plasma [facility] Creatinine [Moles/vo lume] in Serum or Plasma [facility] Work Phone: Creatinine [Moles/vo lume] in Serum or Plasma [facility] Creatinine [Moles/vo lume] in Serum or Plasma [facility] Creatinine [Moles/vo lume] in Serum or Plasma [facility] Creatinine [Moles/vo lume] in Serum or Plasma [facility] Creatinine [Moles/vo lume] in Serum or Plasma [facility] Creatinine [Moles/vo lume] in Serum or Plasma [facility] DNA double strand Ab [Units/volume] in Serum [facility] Work Phone: Electrophoresis: [id number] [facility] Work Phone: Electrophoresis: gabriella ma globulin [facility] Work Phone: Erythrocyte mean cor puscular volume determination [facility] Erythrocyte sediment ation rate [facility] Globulin measurement [facility] Work Phone: Glucose [Mass/volume ] in Serum or Plasma [facility] Work Phone: Glucose [Mass/volume ] in Serum or Plasma [facility] Glucose [Mass/volume ] in Serum or Plasma [facility] Glucose [Mass/volume ] in Serum or Plasma [facility] Glucose [Mass/volume ] in Serum or Plasma [facility] Glucose [Mass/volume ] in Serum or Plasma [facility] Glucose [Mass/volume ] in Serum or Plasma [facility] Glucose [Mass/volume ] in Serum or Plasma [facility] Hematocrit [Volume F raction] of Blood [facility] Work Phone: Hematocrit [Volume F raction] of Blood [facility] Hematocrit [Volume F raction] of Blood [facility] Hematocrit [Volume F raction] of Blood [facility] Hematocrit [Volume F raction] of Blood [facility] Hematocrit [Volume F raction] of Blood [facility] Hematocrit [Volume F raction] of Blood [facility] Hemoglobin [Mass/vol ume] in Blood [facility] Work Phone: Hemoglobin [Mass/vol ume] in Blood [facility] Hemoglobin [Mass/vol ume] in Blood [facility] Hemoglobin [Mass/vol ume] in Blood [facility] Hemoglobin [Mass/vol ume] in Blood [facility] Hemoglobin [Mass/vol ume] in Blood [facility] Hemoglobin [Mass/vol ume] in Blood [facility] Hemoglobin [Presence ] in Urine [facility] Hemoglobin [Presence ] in Urine [facility] IgA [Mass/volume] in Serum or Plasma [facility] Work Phone: IgE [Units/volume] i n Serum or Plasma [facility] Work Phone: IgG [Mass/volume] in Serum or Plasma [facility] Work Phone: IgM [Mass/volume] in Serum or Plasma [facility] Work Phone: Neva-1 extractable nuc lear Ab [Units/volume] in Serum [facility] Work Phone: Lactic acid measurement [facility] Work Phone: Leukocytes [#/volume ] in Blood [facility] Work Phone: Leukocytes [#/volume ] in Blood [facility] Leukocytes [#/volume ] in Blood [facility] Leukocytes [#/volume ] in Blood [facility] Leukocytes [#/volume ] in Blood [facility] Leukocytes [#/volume ] in Blood [facility] Leukocytes [#/volume ] in Blood [facility] Magnesium measurement [facility] Magnesium measurement [facility] Mean corpuscular hem oglobin concentration determination [facility] Work Phone: Mean corpuscular hem oglobin concentration determination [facility] Mean corpuscular hem oglobin concentration determination [facility] Mean corpuscular hem oglobin concentration determination [facility] Mean corpuscular hem oglobin concentration determination [facility] Mean corpuscular hem oglobin concentration determination [facility] Mean corpuscular hem oglobin concentration determination [facility] Mean corpuscular hem oglobin determination [facility] Work Phone: Mean corpuscular hem oglobin determination [facility] Mean corpuscular hem oglobin determination [facility] Mean corpuscular hem oglobin determination [facility] Mean corpuscular hem oglobin determination [facility] Mean corpuscular hem oglobin determination [facility] Mean corpuscular hem oglobin determination [facility] Measurement of immun oglobulin A in serum specimen [facility] Work Phone: Measurement of keton es in urine using dipstick [facility] Measurement of keton es in urine using dipstick [facility] Measurement of renal function [facility] Work Phone: Measurement of renal function [facility] Measurement of renal function [facility] Measurement of renal function [facility] Measurement of renal function [facility] Measurement of renal function [facility] Measurement of renal function [facility] Measurement of renal function [facility] Microbial culture, routine Wound Culture [facility] Work Phone: Microscopic urinalysis [facility] Work Phone: Microscopic urinalysis [facility] Microscopic urinalysis [facility] Mycobacterium sp marko ntified in Unspecified specimen by Organism specific culture [facility] Work Phone: Mycobacterium sp marko ntified in Unspecified specimen by Organism specific culture [facility] Neutrophil count [facility] Work Phone: Neutrophil count [facility] Neutrophil count [facility] Neutrophil count [facility] Neutrophil count [facility] Neutrophil count [facility] Neutrophil count [facility] Neutrophil cytoplasm ic Ab.classic [Units/volume] in Serum [facility] Work Phone: Neutrophil percent differential count [facility] Work Phone: Neutrophil percent differential count [facility] Neutrophil percent differential count [facility] Neutrophil percent differential count [facility] Neutrophil percent differential count [facility] Neutrophil percent differential count [facility] Neutrophil percent differential count [facility] End: 03-31-2024 NM Stomach Views for gastric emptying solid phase W radionuclide PO NM GASTRIC EMPTYING SOLID Radiology Routine Nausea 1 Occurrences starting 03/02/2023 until 03/31/2024 [facility] Work Phone: Comment on above: 1 Occurrences starting 03/02/2023 until 03/31/2024 Organism count, micr oscopic method [facility] Work Phone: P-ANCA measurement [facility] Work Phone: Patient Education [facility] Work Phone: Patient referral [facility] Work Phone: pH of Urine [facility] pH of Urine [facility] Platelets [#/volume] in Blood [facility] Work Phone: Platelets [#/volume] in Blood [facility] Platelets [#/volume] in Blood [facility] Platelets [#/volume] in Blood [facility] Platelets [#/volume] in Blood [facility] Platelets [#/volume] in Blood [facility] Platelets [#/volume] in Blood [facility] Potassium [Moles/vol ume] in Serum or Plasma [facility] Work Phone: Potassium [Moles/vol ume] in Serum or Plasma [facility] Potassium [Moles/vol ume] in Serum or Plasma [facility] Potassium [Moles/vol ume] in Serum or Plasma [facility] Potassium [Moles/vol ume] in Serum or Plasma [facility] Potassium [Moles/vol ume] in Serum or Plasma [facility] Potassium [Moles/vol ume] in Serum or Plasma [facility] Potassium measurement [facility] Protein electrophore sis panel - Serum or Plasma [facility] Work Phone: Radionuclide gastric emptying study [facility] Red blood cell count [facility] Work Phone: Red blood cell count [facility] Red blood cell count [facility] Red blood cell count [facility] Red blood cell count [facility] Red blood cell count [facility] Red blood cell count [facility] Red cell distributio n width determination [facility] Work Phone: Red cell distributio n width determination [facility] Red cell distributio n width determination [facility] Red cell distributio n width determination [facility] Red cell distributio n width determination [facility] Red cell distributio n width determination [facility] Red cell distributio n width determination [facility] SCL-70 extractable n uclear Ab [Units/volume] in Serum by Immunoassay [facility] Work Phone: Serum chloride measurement [facility] Serum protein electrophoresis [facility] Work Phone: Jang extractable nu clear Ab [Presence] in Serum [facility] Work Phone: Sodium [Moles/volume ] in Serum or Plasma [facility] Work Phone: Sodium [Moles/volume ] in Serum or Plasma [facility] Sodium [Moles/volume ] in Serum or Plasma [facility] Sodium [Moles/volume ] in Serum or Plasma [facility] Sodium [Moles/volume ] in Serum or Plasma [facility] Sodium [Moles/volume ] in Serum or Plasma [facility] Sodium [Moles/volume ] in Serum or Plasma [facility] Sodium measurement [facility] Specific gravity of Urine [facility] Specific gravity of Urine [facility] Tissue transglutamin ase IgA Ab [Units/volume] in Serum [facility] Work Phone: Total protein measurement [facility] Total protein measurement [facility] Total protein measurement [facility] Total protein measurement [facility] Total protein measurement [facility] Urea nitrogen [Mass/ volume] in Serum or Plasma [facility] Work Phone: Urea nitrogen [Mass/ volume] in Serum or Plasma [facility] Urea nitrogen [Mass/ volume] in Serum or Plasma [facility] Urea nitrogen [Mass/ volume] in Serum or Plasma [facility] Urea nitrogen [Mass/ volume] in Serum or Plasma [facility] Urea nitrogen [Mass/ volume] in Serum or Plasma [facility] Urea nitrogen [Mass/ volume] in Serum or Plasma [facility] Urea nitrogen [Mass/ volume] in Serum or Plasma [facility] Urinalysis, blood, qualitative [facility] Work Phone: Urinalysis, blood, qualitative [facility] Urinalysis, blood, qualitative [facility] Urine dipstick for glucose [facility] Urine dipstick for glucose [facility] Urine dipstick for l eukocyte esterase [facility] Urine dipstick for l eukocyte esterase [facility] Urine dipstick for nitrite [facility] Urine dipstick for nitrite [facility] Urine dipstick for protein [facility] Urine dipstick for protein [facility] Urine examination [facility] Urine examination [facility] Urine microscopy: ep ithelial cells [facility] Work Phone: Urine microscopy: ep ithelial cells [facility] Urine microscopy: ep [facility] cells [facility] Urine Microscopy: white cells [facility] Urine Microscopy: white cells [facility] Urobilinogen [Presen ce] in Urine [facility] Urobilinogen [Presen ce] in Urine [facility] Vancomycin [Mass/vol ume] in Serum or Plasma --trough [facility] Work Phone: White blood cell count [facility] Work Phone: [facility] Immunizations Immunization Date Immunization Notes Care Provider Gabi samson 06-30-2021 Covid (Moderna) 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 Work Phone: [facility] 03-06-2013 pneumococcal polysaccharide vaccine, 23 valent Alyssa Jaime SPECIALTY SALES REPRESENTATIVE.VOTING MACHINE REPAIRER Work Phone: [facility] Work Phone: Payers Date Payer Category Payer Self-pay [id number] 2021 Medicaid [id number] 2021 Medicaid [employer] [employer] [place] [id number] 2021-[facility] [phone] [facility] [address] [place] [address] Medicaid [id number] 2021 Medicaid [id number]. [id number] 1990 Unknown [id number] 2.840.1.650249.3.579.2.651 1990 Unknown [id number] 2.840.1.443060.3.579.2.651 1992 Unknown [id number] 2.840.1.506025.3.579.2.627 1992 Unknown [id number] 2.840.1.194552.3.579.2.627 Unknown [id number] 2.840.1.234616.3.579.2.462 Unknown [id number] 2.840.1.760427.3.579.2.462 Unknown [id number] 2.840.1.980397.3.579.2.462 Unknown [id number] 2.840.1.665278.3.579.2.462 Unknown [id number] 2.16.840.1.819853.3.579.2.462 Unknown [id number] 2.16.840.1.538925.3.579.2.462 Unknown [id number] 2.16.840.1.860339.3.579.2.462 Unknown [id number] 2.16.840.1.286207.3.579.2.462 Unknown [id number] 2.16.840.1.764817.3.579.2.462 Unknown [id number] 2.16.840.1.671721.3.579.2.462 Unknown [id number] 2.16840.1.534432.3.579.2.462 Unknown [id number] 2.16840.1.552325.3.579.2.462 Unknown [id number] 2.16840.1.047891.3.579.2.462 Unknown [id number] 2.16840.1.446271.3.579.2.462 Unknown [id number] 2.16840.1.124166.3.579.2.462 Unknown [id number] 2.16.840.1.019275.3.579.2.462 Unknown [id number] 2.16.840.1.963285.3.579.2.462 Unknown [id number] 2.16840.1.396707.3.579.2.462 Unknown [id number] 2.16840.1.452478.3.579.2.462 Unknown [id number] 2.16.840.1.581571.3.579.2.462 Unknown [id number] 2.16.840.1.382138.3.579.2.462 Unknown [id number] 2.16.840.1.216318.3.579.2.462 Unknown [id number] 2.16840.1.045442.3.579.2.462 Unknown [id number] 2.16.840.1.125223.3.579.2.462 Unknown [id number] 2.16.840.1.970838.3.579.2.462 Social History Date Type Detail Facility [facility] Work Phone: Start: 10-24-2021 End: 06-27-2023 Tobacco smoking status NHIS Unknown if ever smoked [facility] Start: 1990 Sex Assigned At Female [facility] Start: 03-03-2013 End: 11-25-2024 Tobacco smoking status AKIS Smokes tobacco daily [facility] Work Phone: History of tobacco use Cigarette Smoker [facility] Start: 05-15-2021 End: 02-02-2022 Alcohol intake Current drinker of alcohol (finding) [facility] Start: 05-03-2013 History SDOH Alcohol Comment Seldom [facility] Start: 1990 Sex Assigned At Not on file [facility] Start: 04-15-2021 End: 01-24-2023 Exposure to SARS-CoV-2 (event) Not sure [facility] Work Phone: Start: 03-03-2013 End: 02-10-2023 Cigarettes smoked current (pack per day) - Reported 0.5 [facility] Start: 03-03-2013 End: 06-26-2024 Tobacco use and exposure Smokeless tobacco non-user [facility] Start: 01-10-2023 Tobacco smoking status Smoker (findi ng) [facility] Start: 01-24-2023 End: 02-10-2023 Alcohol Use Disorder Identification Test - Consumption [AUDIT-C] [facility] How often to you hav e a drink containing alcohol? Monthly or less [facility] How many standard dr inks containing alcohol do you have on a typical day? 1 or 2 [facility] How often do you hav e 6 or more drinks on 1 occasion? Less than monthly [facility] Start: 01-24-2023 Alcohol Comment occ. [facility] National Score (1-10 0), lower number is lower risk 92 [facility] Work Phone: Start: 02-19-2023 End: 07-03-2024 Alcohol intake Ex-drinker (finding) [facility] Start: 02-18-2023 Alcohol Comment rare [facility] (I/We) worried tunde er (my/our) food would run out before (I/we) got money to buy more. Never true [facility] Work Phone: In the past 12 month s, was there a time when you were not able to pay the mortgage or rent on time? No [facility] Work Phone: Start: 10-19-2024 End: 11-01-2024 Sex Female (finding) [facility] Start: 12-30-2024 End: 01-04-2025 Tobacco smoking status NHIS Ex-smoker (finding) [facility] NEGATED: Highlighted row [facility] NEGATED: Highlighted row Not [facility] Medical Equipment Procedure Code Equipment Code Equipment Origin al Text Equipment Identifier Dates Repair, tendon, Achilles BIOSKIN, 2 X 4 FDA Start: 12-24-2023 Repair, tendon, Achilles FIBERTAPE FDA Start: 12-24-2023 Repair, tendon, Achilles SUTURETAPE,FIBER LOOP FDA Start: 12-24-2023 Repair, tendon, Achilles Lowgap Citrefix Xpress System FDA Start: 12-24-2023 Repair, tendon, Achilles Lowgap Citrefix Xpress System FDA Start: 12-24-2023 Repair, tendon, Achilles VIAFLOW, 1CC FDA Start: 12-24-2023 Repair, tendon, Achilles Guevara Graft Jacket Now Standard FDA Start: 12-24-2023 Repair, tendon, Achilles ()[id number] FDA Start: 12-24-2023 Repair, tendon, Achilles BIOSKIN, 2 X 4 FDA Start: 12-24-2023 Repair, tendon, Achilles FIBERTAPE FDA Start: 12-24-2023 Repair, tendon, Achilles SUTURETAPE,FIBER LOOP FDA Start: 12-24-2023 Repair, tendon, Achilles Lowgap Citrefix Xpress System FDA Start: 12-24-2023 Repair, tendon, Achilles Lowgap Citrefix Xpress System FDA Start: 12-24-2023 Repair, tendon, Achilles VIAFLOW, 1CC FDA Start: 12-24-2023 Repair, tendon, Achilles Guevara Graft Jacket Now Standard FDA Start: 12-24-2023 Repair, tendon, Achilles BIOSKIN, 2 X 4 FDA Start: 12-24-2023 Repair, tendon, Achilles FIBERTAPE FDA Start: 12-24-2023 Repair, tendon, Achilles SUTURETAPE,FIBER LOOP FDA Start: 12-24-2023 Repair, tendon, Achilles Lowgap Citrefix Xpress System FDA Start: 12-24-2023 Repair, tendon, Achilles Aria Citrefix Xpress System FDA Start: 12-24-2023 Repair, tendon, Achilles VIAFLOW, 1CC FDA Start: 12-24-2023 Repair, tendon, Achilles Guevara Graft Jacket Now Standard FDA Start: 12-24-2023 Repair, tendon, Achilles BIOSKIN, 2 X 4 FDA Start: 12-24-2023 Repair, tendon, Achilles FIBERTAPE FDA Start: 12-24-2023 Repair, tendon, Achilles SUTURETAPE,FIBER LOOP FDA Start: 12-24-2023 Repair, tendon, Achilles Lowgap Citrefix Xpress System FDA Start: 12-24-2023 Repair, tendon, Achilles Lowgap Citrefix Xpress System FDA Start: 12-24-2023 Repair, [...] System FDA Start: 12-24-2023 Repair, tendon, Achilles Lowgap Citrefix Xpress System FDA Start: 12-24-2023 Repair, tendon, Achilles VIAFLOW, 1CC FDA Start: 12-24-2023 Repair, tendon, Achilles Guevara Graft Jacket Now Standard FDA Start: 12-24-2023 Repair, tendon, Achilles BIOSKIN, 2 X 4 FDA Start: 12-24-2023 Repair, tendon, Achilles FIBERTAPE FDA Start: 12-24-2023 Repair, tendon, Achilles SUTURETAPE,FIBER LOOP FDA Start: 12-24-2023 Repair, tendon, Achilles Lowgap Citrefix Xpress System FDA Start: 12-24-2023 Repair, tendon, Achilles Lowgap Citrefix Xpress System FDA Start: 12-24-2023 Repair, tendon, Achilles VIAFLOW, 1CC FDA Start: 12-24-2023 Repair, tendon, Achilles Guevara Graft Jacket Now Standard FDA Start: 12-24-2023 Repair, tendon, Achilles BIOSKIN, 2 X 4 FDA Start: 12-24-2023 Repair, tendon, Achilles FIBERTAPE FDA Start: 12-24-2023 Repair, tendon, Achilles SUTURETAPE,FIBER LOOP FDA Start: 12-24-2023 Repair, tendon, Achilles Aria Citrefix Xpress System FDA Start: 12-24-2023 Repair, tendon, Achilles Lowgap Citrefix Xpress System FDA Start: 12-24-2023 Repair, [...] FDA Start: 07-23-2023 Incision and drainage, abscess ()[id number] FDA Start: 07-23-2023 Incision and drainage, abscess [...] Incision and drainage, abscess FDA Start: 07-23-2023 [id number] Start: 11-27-2013 End: 02-18-2023 Comment on above: Test blood sugar(s) 1 times daily. Dx: 250.02. Insulin: No Test blood sugar(s) 1 daily. Dx: 250.02. Insulin: No Goals Date Patient Goal Desired Activity /State Functional Status Date Assessment Result Facility 01-01-2025 Functional status Ambulates;Up ad [facility] Work Phone: 12-31-2024 Functional status Ambulates;Bathroom [facility] Work Phone: 11-28-2024 Functional status Ambulates;Up ad [facility] Work Phone: 05-09-2023 Functional status Ambulates;Up [facility] Work Phone: 02-11-2023 Functional Status Sequential Com pression Device bilateral knee high removed/off [facility] 02-11-2023 Functional Status Driving, manager account management, 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, Laundry, Meal preparation, Personal ADL, Shopping [facility] 02-11-2023 Functional Status Identified as high risk, Fall ID band on, Door open, Room check performed [facility] 02-11-2023 Functional Status [facility] Functional Status Michael Mckeon [facility] 02-11-2023 Functional Status Patient refused [facility] 02-10-2023 Functional Status Michael Mckeon [facility] 01-15-2023 Functional status Up ad nella [facility] Work Phone: 01-10-2023 Functional Status Independent [facility] 01-10-2023 Functional Status Standard Safet y Call device within reach, Bed in low position, Wheels locked, Safety level maintained [facility] 08-15-2022 Functional status Ambulates [facility] Work Phone: 06-29-2022 Functional status Ambulates;Up a d nella;Bedside [facility] Work Phone: 06-25-2022 Functional status Ambulates;Up a d nella;Bathroom Privilege [facility] Work Phone: 04-09-2022 Functional status Bedside [facility] Work Phone: Mental Status Date Assessment Result Facility 01-01-2025 Cognitive function Voice/Name [facility] Work Phone: 12-31-2024 Cognitive function Voice/Name [facility] Work Phone: 11-28-2024 Cognitive function Voice/Name [facility] Work Phone: 07-23-2023 Cognitive function [facility]/Name [facility] Work Phone: 05-08-2023 Cognitive function [facility]/Name [facility] Work Phone: 02-11-2023 Mental Status Oriented x 4 [facility] 02-11-2023 Mental Status [facility] 02-10-2023 Mental Status [facility] 01-14-2023 Cognitive function Appropriate;Cooperativ e [facility] Work Phone: 01-10-2023 Mental Status Orientation Oriented x 4 [facility] 08-15-2022 Cognitive function Voice/Name [facility] Work Phone: 08-12-2022 Cognitive function Level Of Cons ciousness Awake;Alert;Appropriate [facility] Work Phone: 06-29-2022 Cognitive function Voice/Name [facility] Work Phone: 06-25-2022 Cognitive function Voice/Name [facility] Work Phone: 04-09-2022 Cognitive function Voice/Name [facility] Work Phone: Clinical Notes 04-28-2013 to 01-04-2025 Note Date & Type Note Facility 01-04-2025 Radiology Diagnostic study note [facility] 01-01-2025 Note [facility] 01-01-2025 History and physi jose g note Note Date/Time January 01, 2025 6:02am [facility] Medical Records Department [address] [place] [address] H&P Exam - Hospitalist 12/31/24 2233 MR#: [id number] Acct: [id number] Name: GHISLANIE GIVENS Rep #:[id number] : 1990 34 From: Dewayne Solis DO PCP: BROOKLYN Warren, CT TECH-C Statu s:ADM IN Location: ICU CVICU20 3-1 [...] December 31, 2024 who now re-presents to [facility] ER complaining of hyperglycemia with intractable [...] that expected to extend beyond [address] [facility] Medical History Type 2 diabetes mellitus [...] % (Auto) 64.4, Lymph % (Auto) 27.7, [place] % (Auto) 6.4, Eos % (Auto) 0.3, [...] Clarity Cloudy, Urine pH 6.0, Ur Specific [place] 1.020, Urine Protein 30 H, Urine Glucose [...] 75 minutes. Charges/Coding Visit Charges Inpatient E&M: 59218 Init Hosp L3 01/01/25 0602 <Electronically signed by Dewayne Grant DO> Cosigner Signature (if applicable): CC: BROOKLYN CT TECH-C Amy Solorzano; Dr. Dewayne Grant DO~ Signed [facility] Work Phone: 1(288) 361-999506-23-2025 Discharge summary Author Poli Barfield [facility] Note Date/Time December 31, 2024 11:[facility] [address] [place] [id number] Emergency Department Summary 12/31/24 MR#: [id number] Acct: [id number] Name: GHISLAINE GIVENS Rep #:[id number] : 1990 34 From: Poli Farah PCP: BROOKLYN Warren, CT TECH-C Statu s:ADM IN Location: ICU CVICU20 3-[address] Poli Barfield DO on 12/31/24 at 2351 EKG: Sinus rate of 82, no ST changes. QTc 422. 12/31/24 2351<Electronically signed by Poli Farah> Cosigner Signature (if applicable): cc: BROOKLYN CT TECH-C Amy oSlorzano ~* Signed HPI History of Present Illness [...] No urinary symptoms. [facility] similar symptoms: [facility] Medical History (Updated 12/31/24 @ 23:07 by [...] clinician: Hospitalist This note was generated with Contents First dictation software. It may contain incorrectwords, spelling, [...] % (Auto) 64.4 Lymph % (Auto) 27.7 [place] % (Auto) 6.4 Eos % (Auto) 0.3 [...] Clarity Cloudy Urine pH 6.0 Ur Specific [place] 1.020 Urine Protein 30 H Urine Glucose [...] (Auto) Neut % (Auto) Lymph % (Auto) [place] % (Auto) Eos % (Auto) Baso % (Auto) Absolute Neuts (auto) Absolute Lymphs (auto) Nucleated RBC % Sodium 139 Potassium 3.7 Chloride 108 Carbon Dioxide 18.2 L Anion Gap 13 BUN 7 Creatinine 0.85 Estim Creat Clear Calc 118.14 Est GFR (MDRD) Non-Af 93 BUN/Creatinine Ratio 8.0 L Glucose 177 H Calcium 8.2 b-Hydroxybutyric mmol/L Urine Color Urine Clarity Urine pH Ur Specific [place] Urine Protein Urine Glucose (UA) Urine Ketones [...] (excluding procedures): 30-74 minutes, Discussing w/Patient &/or Family/Nurse Care Manager, Arranging Admission or Transfer, Performing Direct Patient [...] Care Provider: Amy Solorzano Referrals: Amy Solorzano, CT TECH-C [Primary Care Provider] - Print Language: Estonian Disposition Disposition: Acute Care Hospital [facility] What to do if you have Problems For any increased pain, shortness of breath, bleeding, nausea or vomiting, chestpain, or any unexpected problems, contact your Primary Care Provider. Call [facility] ([phone]) or report to the closest Emergency Room. Call 911 if necessary. 12/31/242306 <Electronically signed by Poli Farah> Cosigner Signature (if applicable): CC: BROOKLYN CT TECH-C Amy Solorzano ~ Signed [facility] Work Phone: 1(722) 109-801506-22-2025 Discharge summary Author Poli Barfield [facility] Note Date/Time December 31, 2024 11:0 7pm [facility] Medical Records Department [address] [place] [address] Emergency Department Summary 12/31/24 MR#: [id number] Acct: [id number] Name: GHISLAINE GIVENS Rep #:[id number] : 1990 34 From: Poli Farah PCP: BROOKLYN Warren, CT TECH-C Statu s:REG ER Location: ED HPI History [...] No urinary symptoms. Prior similar symptoms: [facility] Medical History (Updated 12/31/24 @ 23:07 by [...] clinician: Hospitalist This note was generated with Contents First dictation software. It may contain incorrectwords, spelling, [...] % (Auto) 64.4 Lymph % (Auto) 27.7 [place] % (Auto) 6.4 Eos % (Auto) 0.3 [...] Clarity Cloudy Urine pH 6.0 Ur Specific [place] 1.020 Urine Protein 30 H Urine Glucose [...] (Auto) Neut % (Auto) Lymph % (Auto) [place] % (Auto) Eos % (Auto) Baso % (Auto) Absolute Neuts (auto) Absolute Lymphs (auto) Nucleated RBC % Sodium 139 Potassium 3.7 Chloride 108 Carbon Dioxide 18.2 L Anion Gap 13 BUN 7 Creatinine 0.85 Estim Creat Clear Calc 118.14 Est GFR (MDRD) Non-Af 93 BUN/Creatinine Ratio 8.0 L Glucose 177 H Calcium 8.2 b-Hydroxybutyric mmol/L Urine Color Urine Clarity Urine pH Ur Specific [place] Urine Protein Urine Glucose (UA) Urine Ketones [...] (excluding procedures): 30-74 minutes, Discussing w/Patient &/or Family/Nurse Care Manager, Arranging Admission or Transfer, Performing Direct Patient [...] Care Provider: Amy Solorzano Referrals: Amy Solorzano, CT TECH-C [Primary Care Provider] - Print Language: Estonian Disposition Disposition: Acute Care Hospital [facility] What to do if you have Problems For any increased pain, shortness of breath, bleeding, nausea or vomiting, chestpain, or any unexpected problems, contact your Primary Care Provider. Call [facility] ([phone]) or report to the closest Emergency Room. Call 911 if necessary. 12/31/242306 <Electronically signed by Poli Farah> Cosigner Signature (if applicable): CC: BROOKLYN CT TECH-C Amy Solorzano ~ Signed [facility] Work Phone: 1(915) 906-902206-22-2025 [facility]06-22-2025 Discharge summary Author Poli Barfield [facility] Note Date/Time December 30, 2024 10:3 2pm [facility] Medical Records Department [address] [facility] [place] [address] Emergency Department Summary 12/30/24 MR#: [id number] Acct: [id number] Name: GHISLAINE GIVENS Rep #:[id number] : 1990 34 From: Poli Farah PCP: Amy Solorzano Sara, CT TECH-C Statu s:ADM IN Location: ICU CVICU20 3-1 [...] clinician: Hospitalist This note was generated with Contents First dictation software. It may contain incorrectwords, spelling, [...] (Auto) 70.7 H Lymph % (Auto) 23.6 [place] % (Auto) 4.8 Eos % (Auto) 0.0 [...] Sl. Cloudy Urine pH 5.0 Ur Specific [place] 1.025 Urine Protein 30 H Urine Glucose [...] (excluding procedures): 30-74 minutes, Discussing w/Patient &/or Family/Nurse Care Manager, Arranging Admission or Transfer, Performing Direct Patient Care at Bedside and - (35 minutes) Discharge Plan Dx/Rx/DC Orders Clinical Impression: Diabetic ketoacidosis, Cyclic vomiting syndrome, History of diabetes mellitus, NAI (acute kidney injury) Disposition Disposition: Acute Care Hospital [facility] Discharge Date/Time: 12/30/24 13:08 What to do if you have Problems For any increased pain, shortness of breath, bleeding, nausea or vomiting, chestpain, or any unexpected problems, contact your Primary Care Provider. Call [facility] ([phone]) or report to the closest Emergency Room. Call 911 if necessary. 12/30/242231 <Electronically signed by Poli Farah> Cosigner Signature (if applicable): CC: BROOKLYN CT TECH-C Amy Solorzano ~ Signed [facility] Work Phone: 1(519) 907-196506-21-2025 Discharge summary [facility] Medical Records Department [address] [place] [address] Emergency Department Summary 12/30/24 MR#: [id number] Acct: [id number] Name: GHISLAINE GIVENS Rep #:[id number] : 1990 34 From: Poli Farah PCP: BROOKLYN Warren, CT TECH-Sara Statu s:ADM IN Location: ICU CVICU20 3-1 [...] 20 unit subcut BID doreen oniel 08/12/22 12/29/24 History mL) subcutaneous pen (Lantus [...] clinician: Hospitalist This note was generated with [employer] software. It may contain incorrectwords, spelling, and [...] (Auto) 70.7 H Lymph % (Auto) 23.6 [place] % (Auto) 4.8 Eos % (Auto) 0.0 [...] Sl. Cloudy Urine pH 5.0 Ur Specific [place] 1.025 Urine Protein 30 H Urine Glucose [...] kidney injury) Disposition Disposition: Acute Care Hospital [facility] Discharge Date/Time: 12/30/24 13:08 What to do if you have Problems For any increased pain, shortness of breath, bleeding, nausea or vomiting, chestpain, or any unexpected problems, contact your Primary Care Provider. Call [facility] ([phone]) or report tothe closest Emergency Room. Call 911 if necessary. 12/30/242 Cosigner Signature (if applicable): CC: BROOKLYN CT TECH-C Amy Solorzano ~ Signed [facility]06-21-2025 History and physical note Author David Bain [facility] Note Date/Time December 30, 2024 1:09 pm [facility] Medical Records Department [address] [place] [address] H&P Exam - Hospitalist 12/30/24 1248 MR#: [id number] Acct: [id number] Name: GHISLAINE GIVENS Rep #:[id number] : 1990 34 From: David Gupta PCP: BROOKLYN Warren, CT TECH-C Statu s:ADM IN Location: ICU CVICU20 3-1 [...] DKA therefore admitted. Vitals in normal limit. [facility] Medical History Diabetes GERD (gastroesophageal reflux [...] (Auto) 70.7 H, Lymph % (Auto) 23.6, [place] % (Auto) 4.8, Eos % (Auto) 0.0, [...] Sl. Cloudy, Urine pH 5.0, Ur Specific [place] 1.025, Urine Protein 30 H, Urine Glucose [...] for 2 weeks. Weight loss counseling done. Resource Development Manager consult DVT prophylaxis, low risk: Early ambulation encouraged Living will/advanced directive/end of life care: Patient does not have living will or advanced directive. She does not have the [facility] power of banking attorney for health. After discussion of benefits/risks procedures involved with full code,DNR CC arrest and DNR CC, the patient opted for full code. Patient does want artificial life support including intubation, tube feed, ventilator and/chest compression, central venous catheter, vasopressor and DC shock if needed Total time spent in [id number]-[id number] encounter in discussion of advanced directive 17 minutes. Charges/Coding Visit Charges Inpatient E&M: 96087 Init Hosp L3 Procedures Hospitalists Procedures: 91944 Advncd Care Plan 30 Min 12/30/24 1309 <Electronically signed by David Bain MD> Cosigner Signature (if applicable): CC: JERRYC CT TECH-C Amy Solorzano; Dr. David Bani MD~ Signed [facility] Work Phone: 1(632) 152-936006-21-2025 History and physical note [facility] Medical Records Department [address] [place] [address] H&P Exam - Hospitalist 12/30/24 1248 MR#: [id number] Acct: [id number] Name: GHISLAINE GIVENS Rep #:[id number] : 1990 34 From: David Gupta PCP: BROOKLYN Warren, CT TECH-C Statu s:ADM IN Location: ICU CVICU20 3-1 [...] DKA therefore admitted. Vitals in normal limit. [facility] Medical History Diabetes GERD (gastroesophageal reflux [...] (Auto) 70.7 H, Lymph % (Auto) 23.6, [place] % (Auto) 4.8, Eos % (Auto) 0.0, [...] Sl. Cloudy, Urine pH 5.0, Ur Specific [place] 1.025, Urine Protein 30 H, Urine Glucose [...] for 2 weeks. Weight loss counseling done. Resource Development Manager consult DVT prophylaxis, low risk: Early ambulation encouraged Living will/advanced directive/end of life care: Patient does not have living will or advanced directive. She does not have the year power of banking attorney for health. After discussion of benefits/risks procedures involved with full code,DNR CC arrest and DNR CC, the patient opted for full code. Patient does want artificial life support including intubation, tube feed, ventilator and/chest compression, central venous catheter, vasopressor and DC shock if needed Total time spent in ojpv-et-mdvi encounter in discussion of advanced directive 17 minutes. Charges/Coding Visit Charges Inpatient E&M: 95045 Init Hosp L3 Procedures Hospitalists Procedures: 92921 Advncd Care Plan 30 Min 12/30/24 1309 Cosigner Signature (if applicable): CC: BROOKLYN CUMMINS-Sara Solorzano; Dr. David Bain MD~ Signed [facility]06-16-2025 Radiology Diagnostic study note [facility] Imaging Services [address] [place] [address] Abdomen Limited MR#: [id number] Acct: [id number] Name: GHISLAINE GIVENS Rep #: [id number] : 1990 F 34 From: Yamila Mcginnis MD PCP: BROOKLYN Warren, CT TECH-C Status: REG CLI Study:Abdomen Limited Date of Exam: 12/10 01/03 Exam# [id number] Ordering Dr: Nayana Peter PROCEDURE: ABDOMEN LIMITED [...] of cholelithiasis or acute cholecystitis. Reading [facility] CC: BROOKLYN Solorzano; MIGUEL A South ~ Outlet Manager: Signed [facility]05-20-2025 Discharge summary [facility] Medical Records Department [address] [place] [address] Discharge Summary 11/28/24 1203 MR#: [id number] Acct: [id number] Name: GHISLAINE GIVENS Rep #:[id number] : 1990 34 From: Gale Lr DO PCP: BROOKLYN [place], TANVIC Statu s:ADM IN Location: [place] [address] Providers Date of Admission: 11/25/24 Date of Discharge: 11/28/24 Primary Care Physician: BROOKLYN Warren, PATRIEC Consultations 11/25/24 15:14 Consult: General Surgery Routine [...] who presented to the emergency department at [facility] on 11/25/2024 with a chief complaint [...] (Auto) 49.8, Lymph % (Auto) 43.[address] H, [place] % (Auto) 5.3, Eos % (Auto) 0.5, [...] as compared to prior study. Reading Location: [facility] D/C Instructions Discharge Diet: 1800 Calorie [...] Gale Lr Primary Care Provider: Amy Solorzano [facility] Consulting Providers: Annalise Welch; Brenda Rao [...] tomorrow to set up appointment) Amy Solorzano, CT TECH-C [Primary Care Provider] - In 1 Week Disposition Disposition (needs filled in before D/C Order can be placed): Home, Self Care Charges/Coding Visit Charges Inpatient E&M: 28421 Disch Hosp >30min 11/28/24 1231 Cosigner Signature (if applicable): CC: BROOKLYN TINAJEROC Amy Solorzano; Dr. Gale Lr DO~ Signed [facility]20[facility] Progress note Author Clare Loo [facility] Note Date/Time November 28, 2024 8:41a m [facility] Medical Records Department [address] [place] [address] Progress Note - Surgery 11/28/24 0757 MR#: [id number] Acct: [id number] Name: GHISLAINE GIVENS Rep #:[id number] : 1990 34 From: Clare GRADY PA-C PCP: BROOKLYN Warren, CT TECH-C Statu s:ADM IN Location: [place]3 OC204-6 Subjective Subjective Patient was walking the hallway [...] (Auto) 49.8, Lymph % (Auto) 43.0 H, [place] % (Auto) 5.3, Eos % (Auto) 0.5, [...] as compared to prior study. Reading Location: [facility] Physical Exam GI GI Narrative: Abdomen- soft, [...] 1 week Charges/Coding Visit Charges Inpatient E&M: 16371 Subs Hosp L2 11/28/24 0841 <Electronically signed by Clare GRADY PA-C> Cosigner Signature (if applicable): CC: ~ Signed [facility] Work Phone: 1(567) 164-819305-20-2025 Progress note [facility] Medical Records Department [address] [place] [address] Progress Note - Surgery 11/28/24 0757 MR#: [id number] Acct: [id number] Name: GHISLAINE GIVENS Rep #:[id number] : 1990 34 From: Clare GRADY PA-C PCP: Amy Solorzano, C, CT TECH-C Statu s:ADM IN Location: [place] CG558-9 Subjective Subjective Patient was walking the hallway [...] (Auto) 49.8, Lymph % (Auto) 43.[address] H, [place] % (Auto) 5.3, Eos % (Auto) 0.5, [...] as compared to prior study. Reading Location: [facility] Physical Exam GI GI Narrative: Abdomen- soft, [...] 1 week Charges/Coding Visit Charges Inpatient E&M: 01207 Subs Hosp L2 11/28/24 0841 Cosigner Signature (if applicable): CC: ~ Signed [facility]05-19-2025 Progress note Author Gale Lr [facility] Note Date/Time November 27, 2024 3:45p m [facility] Medical Records Department [address] [facility] [place] [address] Progress Note - Hospitalist 11/27/24 0759 MR#: [id number] Acct: [id number] Name: GHISLAINE GIVENS Rep #:[id number] : 1990 34 From: Gale Lr DO PCP: Amy Solorzano Sara, CT TECH-C Statu s:ADM IN Location: [place] ZP765-5 Reason for Visit Reason for Visit: Abdominal [...] (Auto) 75.9 H, Lymph % (Auto) 18.1L, [place] % (Auto) 5.2, Eos % (Auto) 0.0, [...] fecal impaction of the rectum. Reading Location: [facility] Physical Exam Const alert, oriented x3 and [...] cessation discussed with patient Acute proctitis/colitis - Wenden to be stercoral colitis from severe constipation [...] Full code Charges/Coding Visit Charges Inpatient E&M: 29881 Subs Hosp L2 11/27/24 7649 <Electronically signed by Gale Lr DO> Cosigner Signature (if applicable): CC: ~ Signed [facility] Work Phone: 1(114) 335-716705-19-2025 Progress note Author Clare Loo [facility] Note Date/Time November 27, 2024 2:35p m [facility] Medical Records Department [address] [place] [address] Progress Note - Surgery 11/27/24 0845 MR#: [id number] Acct: [id number] Name: GHISLAINE GIVENS Rep #:[id number] : 1990 34 From: Clare GRADY PA-C PCP: BROOKLYN Warren, CT TECH-C Statu s:ADM IN Location: [place] XZ407-2 Subjective Subjective Patient evaluated rolling restlessly in [...] (Auto) 75.9 H, Lymph % (Auto) 18.1L, [place] % (Auto) 5.2, Eos % (Auto) 0.0, [...] this patient Charges/Coding Visit Charges Inpatient E&M: 25021 Subs Hosp L2 11/27/24 0853 <Electronically signed [...] Cosigner Signature (if applicable): cc: ~* Signed [facility] Work Phone: 1(619) 215-694105-19-2025 Progress note [facility] Medical Records Department [address] [place] [address] Progress Note - Hospitalist 11/27/24 2225 MR#: [id number] Acct: [id number] Name: GHISLAINE GIVENS Rep #:[id number] : 1990 34 From: Gale Lr DO PCP: BROOKLYN Warren, CT TECH-C Statu s:ADM IN Location: [place]3 WY310-0 Reason for Visit Reason for Visit: Abdominal [...] (Auto) 75.9 H, Lymph % (Auto) 18.1L, [place] % (Auto) 5.2, Eos % (Auto) 0.0, [...] fecal impaction of the rectum. Reading Location: [facility] Physical Exam Const alert, oriented x3 and [...] cessation discussed with patient Acute proctitis/colitis - Wenden to be stercoral colitis from severe constipation [...] Full code Charges/Coding Visit Charges Inpatient E&M: 41571 Subs Hosp L2 11/27/24 1545 Cosigner Signature (if applicable): CC: ~ Signed [facility]05-19-2025 Progress note [facility] Medical Records Department [address] [place] [address] Progress Note - Surgery 11/27/24 0845 MR#: [id number] Acct: [id number] Name: GHISLAINE GIVENS Rep #:[id number] : 1990 34 From: Clare GRADY PA-C PCP: BROOKYLN Warren, CT TECH-C Statu s:ADM IN Location: [place] EQ452-0 Subjective Subjective Patient evaluated rolling restlessly in [...] 100 / 100 Balance 2049 1710 / 185 330 / 330 Lab / Micro Data [...] (Auto) 75.9 H, Lymph % (Auto) 18.1L, [place] % (Auto) 5.2, Eos % (Auto) 0.0, [...] this patient Charges/Coding Visit Charges Inpatient E&M: 32213 Subs Hosp L2 11/27/24 0853 Cosigner Signature [...] Cosigner Signature (if applicable): cc: ~* Signed [facility]05-19-2025 Radiology Diagnostic study note [facility] Imaging Services [address] [place] [address] Abdomen/Pelvis WITH Contrast MR#: [id number] Acct: [id number] Name: GHISLAINE GIVENS Rep #: [id number] : 1990 F 34 From: Fortino Sadler MD PCP: BROOKLYN Warren, CT TECH-C Status: ADM IN Study:Abdomen/Pelvis WITH Contrast Date of Ex am: 11/27/24 Exam# [id number] Ordering Dr: Clare Loo PA-C PROCEDURE: ABDOMEN/PELVIS [...] as compared to prior study. Reading Location: [place] [address] CC: ESCOBAR Loo; [facility] PATRICE Solorzano ~ Outlet Manager: Signed [facility]05-18-2025 Progress note Author Brenda Rao [facility] Note Date/Time November 26, 2024 9:20a m [facility] Medical Records Department [address] [place] [address] Progress Note 11/26/24 0909 MR#: [id number] Acct: [id number] Name: GHISLAINE GIVENS Rep #:[id number] : 1990 34 From: Brenda Rao MD PCP: Amy Solorzano, BROOKLYN, PATRICE Statu s:ADM IN Location: [facility] II672-3 Subjective Subjective Patient seen and examined. She [...] 79.5 H, Lymph % (Auto) 11.4 L, [place] % (Auto) 8.0, Eos % (Auto) 0.1, [...] Clarity Cloudy, Urine pH 6.0, Ur Specific [place] 1.025, Urine Protein 30 H, Urine Glucose [...] (Auto) 73.4 H, Lymph % (Auto) 19.4, [place] % (Auto) 6.2, Eos % (Auto) 0.2, [...] the colon consistent with constipation. Reading Location: [facility] Abdomen/Pelvis CT 11/25/24 11:32 IMPRESSION: 1. Fecal impaction with apparent wall thickening of the distal colon and rectumsuggesting proctitis and colitis. Clinical correlation is recommended. 2. Hepatomegaly with fatty infiltration. Reading Location: [facility] KUB X-Ray 11/26/24 08:10 IMPRESSION: Constipation with suggestion of fecal impaction of the rectum. Reading Location: [facility] Physical Exam Const alert and oriented x3 [...] Full code Charges/Coding Visit Charges Inpatient E&M: 58567 Subs Hosp L2 11/26/24 0920 <Electronically signed by Brenda Rao MD> Brenda Rao MD Cosigner Signature (if applicable): CC: ~ Signed [facility] Work Phone: 1(434) 514-535805-18-2025 History and physical note Author Brenda Phelps [facility]daphne [facility] Note Date/Time November 26, 2024 7:54a m [facility] Medical Records Department [address] [place] [address] H&P Exam - Hospitalist 11/25/24 1324 MR#: [id number] Acct: [id number] Name: GHISLAINE GIVENS Rep #:[id number] : 1990 34 From: Brenda Rao MD PCP: BROOKLYN Warren, CT TECH-C Statu s:ADM IN Location: [facility] YK881-8 HPI - General General Date of Admission: [...] of severe constipation with likely overflow diarrhea. [facility] Medical History (Updated 11/25/24 @ 15:05 [...] 79.5 H, Lymph % (Auto) 11.4 L, [place] % (Auto) 8.0, Eos % (Auto) 0.1, [...] Clarity Cloudy, Urine pH 6.0, Ur Specific [place] 1.025, Urine Protein 30 H, Urine Glucose [...] colon consistent with constipation. Reading Location: [facility] Abdomen/Pelvis CT 11/25/24 11:32 IMPRESSION: 1. Fecal impaction with apparent wall thickening of the distal colon and rectumsuggesting proctitis and colitis. Clinical correlation is recommended. 2. Hepatomegaly with fatty infiltration. Reading Location: [facility] Assessment & Plan Assessment/Plan (1) Colitis: (2) Acute proctitis: (3) Fecal impaction: PLAN: Plan # Stercoral proctocolitis with overflow diarrhea in the setting of severe constipation with fecal impaction * Admit to [facility]. Admitted with a complaint of abdominal pain. [...] Full code Charges/Coding Visit Charges Inpatient E&M: 83873 Init Hosp L2 11/26/24 1357 <Electronically signed by Brenda Rao MD> Cosigner Signature (if applicable): CC: BROOKLYN CT TECH-C Amy Solorzano; Dr. Brenda Rao MD~ Signed [facility] Work Phone: 1(843) 478-676505-18-2025 Consult note Author Annalise Welch [facility] Note Date/Time November 26, 2024 7:47a m [facility] Medical Records Department [address] [place] [address] Consultation - Surgical 11/25/242050 MR#: [id number] Acct: [id number] Name: GHISLAINE GIVENS Rep #:[id number] : 1990 34 From: Annalise Welch MD PCP: Amy Solorzano, BROOKLYN, CT TECH-C Statu s:ADM IN Location: [facility] MD890-0 Assessment & Plan Assessment/Plan (1) Fecal impaction: (2) Acute proctitis: PLAN: Plan Discussed with patient would recommend additional enema to help soften the bowelof stool in the rectum. Along with additional ones after that. Continue IV Zosyn Discussed with patient plan to DC with laxatives. Annalise Welch M.D. Pager: [phone] [facility] [address] [place] [address], [facility] [address] [place] [address] Office: [phone] HPI Consult Data Date of Consult: 11/26/24 [...] and did have some results with it. [facility] Medical History (Updated 11/25/24 @ 15:05 [...] 79.5 H, Lymph % (Auto) 11.4 L, [place] % (Auto) 8.0, Eos % (Auto) 0.1, [...] Clarity Cloudy, Urine pH 6.0, Ur Specific [place] 1.025, Urine Protein 30 H, Urine Glucose [...] colon consistent with constipation. Reading Location: [facility] Abdomen/Pelvis CT 11/25/24 11:32 IMPRESSION: 1. Fecal impaction with apparent wall thickening of the distal colon and rectumsuggesting proctitis and colitis. Clinical correlation is recommended. 2. Hepatomegaly with fatty infiltration. Reading Location: [facility] Charges/Coding Visit Charges Inpatient E&M: 51598 Init Hosp L3 11/26/24 0747 <Electronically signed by Annalise Welch MD> Cosigner Signature (if applicable): CC: BROOKLYN Solorzano~ Signed [facility] Work Phone: 1(597) 731-937605-18-2025 Progress note Author Annalise Welch [facility] Note Date/Time November 26, 2024 7:47a m [facility] Medical Records Department [address] [facility] [place] [address] Progress Note - Surgery 11/26/24 0741 MR#: [id number] Acct: [id number] Name: GHISLAINE GIVENS Rep #:[id number] : 1990 34 From: Annalise Welch MD PCP: Amy Solorzano, Sara, CT TECH-C Statu s:ADM IN Location: [place]3 BR951-9 Subjective Subjective Patient states she did have [...] 79.5 H, Lymph % (Auto) 11.4 L, [place] % (Auto) 8.0, Eos % (Auto) 0.1, [...] Clarity Cloudy, Urine pH 6.0, Ur Specific [place] 1.025, Urine Protein 30 H, Urine Glucose [...] (Auto) 73.4 H, Lymph % (Auto) 19.4, [place] % (Auto) 6.2, Eos % (Auto) 0.2, [...] the colon consistent with constipation. Reading Location: [facility] Abdomen/Pelvis CT 11/25/24 11:32 IMPRESSION: 1. Fecal impaction with apparent wall thickening of the distal colon and rectumsuggesting proctitis and colitis. Clinical correlation is recommended. 2. Hepatomegaly with fatty infiltration. Reading Location: [facility] Physical Exam Const oriented x3 and no [...] improved from 27-17. Annalise Welch M.D. Pager: [phone] [facility] [address] [place] [address], Outpatient [facility], [address] [place] [id number] Office: [phone] Charges/Coding Multi Select Codes Visit Charges Visit Charges: 37823 Subs Hosp L2 11/26/24 0747 <Electronically signed by Annalise Welch MD> Cosigner Signature (if applicable): CC: ~ Signed [facility] Work Phone: 1(678) 229-357905-18-2025 Progress note [facility] Medical Records Department [address] [place] [address] Progress Note 11/26/24 0909 MR#: [id number] Acct: [id number] Name: GHISLAINE GIVENS Rep #:[id number] : 1990 34 From: Brenda Rao MD PCP: BROOKLYN Warren, CT TECH-C Statu s:ADM IN Location: [facility]3 PH201-4 Subjective Subjective Patient seen and examined. She [...] 79.5 H, Lymph % (Auto) 11.4 L, [place] % (Auto) 8.0, Eos % (Auto) 0.1, [...] Clarity Cloudy, Urine pH 6.0, Ur Specific [place] 1.025, Urine Protein 30 H, Urine Glucose [...] (Auto) 73.4 H, Lymph % (Auto) 19.4, [place] % (Auto) 6.2, Eos % (Auto) 0.2, [...] the colon consistent with constipation. Reading Location: [facility] Abdomen/Pelvis CT 11/25/24 11:32 IMPRESSION: 1. Fecal impaction with apparent wall thickening of the distal colon and rectumsuggesting proctitisand colitis. Clinical correlation is recommended. 2. Hepatomegaly with fatty infiltration. Reading Location: [facility] KUB X-Ray 11/26/24 08:10 IMPRESSION: Constipation with suggestion of fecal impaction of the rectum. Reading Location: [facility] Physical Exam Const alert and oriented x3 [...] Full code Charges/Coding Visit Charges Inpatient E&M: 12735 Subs Hosp L2 11/26/24 0920 Brenda Rao MD Cosigner Signature (if applicable): CC: ~ Signed [facility]05-18-2025 Radiology Diagnostic study note [facility] Imaging Services [address] [place] [address] Abdomen Single View MR#: [id number] Acct: [id number] Name: GHISLAINE GIVENS Rep #: [id number] : 1990 F 34 From: Alicja Barfield MD PCP: BROOKLYN Warren, CT TECH-C Status: ADM IN Study:Abdomen Single View Date of Exam: 11/26/24 Exam# [id number] Ordering Dr: Annalise Welch MD EXAM: XR Abdomen, 1 View CLINICAL INDICATION: FECAL IMPACTION-RECTUM TECHNIQUE: Frontal supine view of the abdomen/pelvis. COMPARISON: No relevant prior studies available. FINDINGS: GASTROINTESTINAL TRACT: Constipation with suggestion of fecal impaction of the rectum. No dilation. BONES/JOINTS: Unremarkable. No acute fracture. RAD/Abdomen Single View IMPRESSION: Constipation with suggestion of fecal impaction of the rectum. Reading Location: [facility] CC: [facility] CT TECH-C Amy Solorzano; Dr. Annalise Welch MD ~ Outlet Manager: Signed [facility]05-18-2025 History and physical note [facility] Medical Records Department [address] [place] [address] H&P Exam - Hospitalist 11/25/24 1324 MR#: [id number] Acct: [id number] Name: GHISLAINE GIVENS Rep #:[id number] : 1990 34 From: Brenda Rao MD PCP: BROOKLYN Warren, CT TECH-C Statu s:ADM IN Location: [place] JI199-6 HPI - General General Date of Admission: [...] of severe constipation with likely overflow diarrhea. [facility] Medical History (Updated 11/25/24 @ 15:05 [...] 79.5 H, Lymph % (Auto) 11.4 L, [place] % (Auto) 8.0, Eos % (Auto) 0.1, [...] Clarity Cloudy, Urine pH 6.0, Ur Specific [place] 1.025, Urine Protein 30 H, Urine Glucose [...] colon consistent with constipation. Reading Location: [facility] Abdomen/Pelvis CT 11/25/24 11:32 IMPRESSION: 1. Fecal impaction with apparent wall thickening of the distal colon and rectumsuggesting proctitisand colitis. Clinical correlation is recommended. 2. Hepatomegaly with fatty infiltration. Reading Location: [facility] Assessment & Plan Assessment/Plan (1) Colitis: (2) Acute proctitis: (3) Fecal impaction: PLAN: Plan # Stercoral proctocolitis with overflow diarrhea in the setting of severe constipation with fecal impaction * Admit to [facility]. Admitted with a complaint of abdominal pain. [...] Full code Charges/Coding Visit Charges Inpatient E&M: 06230 Init Hosp L2 11/26/24 8156 Cosigner Signature (if applicable): CC: Sara CT TECHKaykay Solorzano; Dr. Brenda Rao MD~ Signed [facility]05-18-2025 Consult note [facility] Medical Records Department [address] [place] [address] Consultation - Surgical 11/25/242050 MR#: [id number] Acct: [id number] Name: GHISLAINE GIVENS Rep #:[id number] : 1990 34 From: Annalise Welch MD PCP: Amy Solorzano Sara, CT TECH-C Statu s:ADM IN Location: [place] [address]-1 Assessment & Plan Assessment/Plan (1) Fecal impaction: (2) Acute proctitis: PLAN: Plan Discussed with patient would recommend additional enema to help soften the bowelof stool in the rectum. Along with additional ones after that. Continue IV Zosyn Discussed with patient plan to DC with laxatives. Annalise Welch M.D. Pager: [phone] [facility] [address] [place] [address], [facility]patient [facility], [address] [place] [address] Office: [phone] HPI Consult Data Date of Consult: 11/26/24 [...] ER and did havesome results with it. [facility] Medical History (Updated 11/25/24 @ 15:05 [...] 79.5 H, Lymph % (Auto) 11.4 L, [place] % (Auto) 8.0, Eos % (Auto) 0.1, [...] Clarity Cloudy, Urine pH 6.0, Ur Specific [place] 1.025, Urine Protein 30 H, Urine Glucose [...] the colon consistent with constipation. Reading Location: [facility] Abdomen/Pelvis CT 11/25/24 11:32 IMPRESSION: 1. Fecal impaction with apparent wall thickening of the distal colon and rectumsuggesting proctitisand colitis. Clinical correlation is recommended. 2. Hepatomegaly with fatty infiltration. Reading Location: [facility] Charges/Coding Visit Charges Inpatient E&M: 35688 Init Hosp L3 11/26/24 0747 Cosigner Signature (if applicable): CC: [place] CT TECH-C Amy Solorzano~ Signed [facility]05-18-2025 Progress note [facility] Medical Records Department [address] [place] [address] Progress Note - Surgery 11/26/24 0741 MR#: [id number] Acct: [id number] Name: GHISLAINE GIVENS Rep #:[id number] : 1990 34 From: Annalise Welch MD PCP: Amy Solorzano, [place], CT TECH-C Statu s:ADM IN Location: [place]3 UV680-2 Subjective Subjective Patient states she did have [...] 79.5 H, Lymph % (Auto) 11.4 L, [place] % (Auto) 8.0, Eos % (Auto) 0.1, [...] Clarity Cloudy, Urine pH 6.0, Ur Specific [place] 1.025, Urine Protein 30 H, Urine Glucose [...] (Auto) 73.4 H, Lymph % (Auto) 19.4, [place] % (Auto) 6.2, Eos % (Auto) 0.2, [...] the colon consistent with constipation. Reading Location: [facility] Abdomen/Pelvis CT 11/25/24 11:32 IMPRESSION: 1. Fecal impaction with apparent wall thickening of the distal colon and rectumsuggesting proctitisand colitis. Clinical correlation is recommended. 2. Hepatomegaly with fatty infiltration. Reading Location: [facility] Physical Exam Const oriented x3 and no [...] improved from 27-17. Annalise Welch M.D. Pager: [phone] [facility] [address] [place] [address], [facility], [address] [place] [address] Office: [phone] Charges/Coding Multi Select Codes Visit Charges Visit Charges: 21949 Subs Hosp L2 11/26/24 8284 Cosigner Signature (if applicable): CC: ~ Signed [facility]05-17-2025 Discharge summary Author Drew Hinson [facility] Note Date/Time November 25, 2024 1:45p m [facility] Medical Records Department [address] [place], [place] [id number] Emergency Department Summary 11/25/24 MR#: [id number] Acct: [id number] Name: GHISLAINE GIVENS Rep #:[id number] : 1990 34 From: Drew Hinson MD PCP: Amy Solorzano [facility], CT TECH-C Statu s:REG ER Location: ED HPI HPI [...] this diagnosis. No exacerbating or alleviating factors. [facility] Medical History Wears glasses History of [...] who requested that I discussed patient withDr. Munguiaham with general surgery. She requested that the [...] 79.5 H Lymph % (Auto) 11.[address] % (Auto) 8.0 Eos % (Auto) 0.1 [...] Clarity Cloudy Urine pH 6.0 Ur Specific [place] 1.025 Urine Protein 30 H Urine Glucose [...] colon consistent with constipation. Reading Location: [facility] Abdomen/Pelvis CT 11/25/24 11:32 IMPRESSION: 1. Fecal impaction with apparent wall thickening of the distal colon and rectumsuggesting proctitis and colitis. Clinical correlation is recommended. 2. Hepatomegaly with fatty infiltration. Reading Location: [facility] Management Discussion w/another healthcare provider: Hospitalist (Dr. Rao) and Chassis Wirer(Dr. Welch) Discharge Plan Dx/Rx/DC Orders Clinical Impression: Fecal impaction, Acute proctitis, Colitis Disposition Disposition: [facility] What to do if you have Problems For any increased pain, shortness of breath, bleeding, nausea or vomiting, chestpain, or any unexpected problems, contact your Primary Care Provider. Call [facility] ([phone]) or report to the closest Emergency Room. Call 911 if necessary. 11/25/24 1345 <Electronically signed by Drew Hinson MD> Cosigner Signature (if applicable): CC: [facility] CT TECH-C Amy Solorzano ~ Signed [facility] Work Phone: 1(398) 937-683805-17-2025 Evaluation note* Diagnosis Onset Date Resolution Status Admit Date Abdominal pain acute November 25, 2024 1:38pm Acute proctitis acute November 25, 2024 1:38pm Colitis acute November 25, 2024 1:38pm Diabetes acute November 25, 2024 1:38pm Fecal impaction acute November 25, 2024 1:38pm Nausea & vomiting acute November 1:38pm [facility] Work Phone: 1(611) 420-476105-17-2025 Evaluation note* Diagnosis Onset Date Resolution Status [...] December 7:52am Constipation noneactive December 13 7:52am [facility] Work Phone: 1(602) 660-131505-17-2025 Evaluation note* Diagnosis Onset Date Resolution Status [...] 2024 12:28pm Diabetic ketoacidosis acute Dec 12:28pm [facility] Work Phone: 1(532) 516-785205-17-2025 Evaluation note* Diagnosis Onset Date Resolution Status [...] peripheral neuropathy acute December 31, 2024 10:59pm [facility] Work Phone: 1(993) 418-133305-17-2025 Evaluation note* Diagnosis Onset Date Resolution Status [...] 2024 10:59pm Depression with anxiety acute J [facility] 2024 10:59pm Diabetic ketoacidosis acute Dec 10:59pm Medical non-compliance acute Nadine reynaga 2024 10:59pm Obesity (BMI 30-39.9) acute Dec 10:59pm Type 2 diabetes mellitus wit h peripheral neuropathy acute December 31, 2024 10:59pm [facility] Work Phone: 1(855) 505-264305-17-2025 Evaluation note* Diagnosis Onset Date Resolution Status [...] 2024 10:59pm Depression with anxiety inactive J [facility] 2024 10:59pm Diabetic ketoacidosis inactive Dec 10:59pm Medical non-compliance inactive Ju ne 2024 10:59pm Obesity (BMI 30-39.9) inactive Addison e 2024 10:59pm Type 2 diabetes mellitus wit h peripheral neuropathy inactive December 31, 2024 10:59pm [facility] Work Phone: 1(599) 173-165105-17-2025 Discharge summary Author Drew Hinson [facility] Note Date/Time November 25, 2024 1:45p m [facility] Medical Records Department [address] [place] [address] Emergency Department Summary 11/25/24 MR#: [id number] Acct: [id number] Name: GHISLAINE GIVENS Rep #:[id number] : 1990 34 From: Drew Hinson MD PCP: [place], CT TECH-C Statu s:REG ER Location: ED HPI HPI [...] this diagnosis. No exacerbating or alleviating factors. [facility] Medical History Wears glasses History of [...] 79.5 H Lymph % (Auto) 11.[address] % (Auto) 8.0 Eos % (Auto) 0.1 [...] Clarity Cloudy Urine pH 6.0 Ur Specific [place] 1.025 Urine Protein 30 H Urine Glucose [...] colon consistent with constipation. Reading Location: [facility] Abdomen/Pelvis CT 11/25/24 11:32 IMPRESSION: 1. Fecal impaction with apparent wall thickening of the distal colon and rectumsuggesting proctitis and colitis. Clinical correlation is recommended. 2. Hepatomegaly with fatty infiltration. Reading Location: [facility] Management Discussion w/another healthcare provider: Hospitalist (Dr. Rao) and Chassis Wirer(Dr. Welch) Discharge Plan Dx/Rx/DC Orders Clinical Impression: Fecal impaction, Acute proctitis, Colitis Disposition Disposition: Acute Care Hospital [facility] What to do if you have Problems For any increased pain, shortness of breath, bleeding, nausea or vomiting, chestpain, or any unexpected problems, contact your Primary Care Provider. Call [facility] ([phone]) or report to the closest Emergency Room. Call 911 if necessary. 11/25/24 1345 <Electronically signed by Drew Hinson MD> Cosigner Signature (if applicable): CC: [place] CT TECH-C Amy Solorzano ~ Signed [facility] Work Phone: 1([phone]) 338-236505-17-2025 Discharge summary [facility] Medical Records Department [address] [place] [address] Emergency Department Summary 11/25/24 MR#: [id number] Acct: [id number] Name: GHISLAINE GIVENS Rep #:[id number] : 1990 34 From: Drew Hinson MD PCP: [place], CT TECH-C Statu s:REG ER Location: ED HPI HPI [...] confirm this diagnosis. Noexacerbating or alleviating factors. [facility] Medical History Wears glasses History of [...] 79.5 H Lymph % (Auto) 11.[address] % (Auto) 8.0 Eos % (Auto) 0.1 [...] Clarity Cloudy Urine pH 6.0 Ur Specific [place] 1.025 Urine Protein 30 H Urine Glucose [...] colon consistent with constipation. Reading Location: [facility] Abdomen/Pelvis CT 11/25/24 11:32 IMPRESSION: 1. Fecal impaction with apparent wall thickening of the distal colon and rectumsuggesting proctitisand colitis. Clinical correlation is recommended. 2. Hepatomegaly with fatty infiltration. Reading Location: [facility] Management Discussion w/another healthcare provider: Hospitalist (Dr. Rao) and Chassis Wirer(Dr. Welch) Discharge Plan Dx/Rx/DC Orders Clinical Impression: Fecal impaction, Acute proctitis, Colitis Disposition Disposition: Acute Care Hospital [facility] What to do if you have Problems For any increased pain, shortness of breath, bleeding, nausea or vomiting, chestpain, or any unexpected problems, contact your Primary Care Provider. Call [facility] ([phone]) or report tothe closest Emergency Room. Call 911 if necessary. 11/25/24 1345 Cosigner Signature (if applicable): CC: [place] CT TECH-C Amy Solorzano ~ Signed [facility]05-17-2025 Radiology Diagnostic study note [facility] Imaging Services [address] [place], [place] [address] Abdomen/Pelvis W IV Cont ONLY MR#: [id number] Acct: [id number] Name: GHISLAINE GIVENS Rep #: [id number] : 1990 F 34 From: Alicja Barfield MD PCP: [place], CT TECH-C Status: REG ER Study:Abdomen/Pelvis W IV Cont ONLY Date of E xam: 11/25/24 Exam# [id number] Ordering Dr: Drew Hinson MD EXAM: CT [...] 2. Hepatomegaly with fatty infiltration. Reading Location: [facility] CC: [facility] CT TECH-C Amy Solorzano; Dr. Drew Hinson MD ~ Outlet Manager: Signed [facility]05-17-2025 Radiology Diagnostic study note [facility] Imaging Services [address] [place] [address] Acute Abdomen Inc Chest MR#: [id number] Acct: [id number] Name: GHISLAINE GIVENS Rep #: [id number] : 1990 F 34 From: Alicja Barfield MD PCP: Amy Solorzano, [facility], CT TECH-C Status: REG ER Study:Acute Abdomen Inc Chest Date of Exam: 11/25/24 Exam# [id number] Ordering Dr: Drew Hinson MD EXAM: XR [...] colon consistent with constipation. Reading Location: [facility] CC: [facility] CT TECH-C Amy Solorzano; Dr. Drew Hinson MD ~ Outlet Manager: Signed [facility]12-23-2024 NoteHNO ID: [id number] Author: VADIM HANNA PA Service: ? Author Type: Physician Refinery Pipeline Operator Type: Progress Notes Filed: 07/03/2024 13:13 Note Text: This note was created using [email or web address]. Subjective Ghislaine Givens is a 34 year [...] (HCC) 2007 Depression Diabetes mellitus ([facility]) Elevated BP 04/28/2013 Insomnia PAST SURGICAL HISTORY [...] treatment plan were d (more content not included)...[facility]12-23-2024 History of Present illness Narrative* Vadim Hanna PA - 07/03/2024 1:11 PM EST This note was created using aitainment. Subjective Ghislaine Givens is a 34 year [...] evaluation. MIGUEL A Goldman [facility] History of Present illness Narrative* [...] PATIENT PRESENTS WITH AN IMPLANTABLE OR ATTACHED BRUSHER AND SHEARER: No RADIOLOGY DEPARTMENT: General X-ray: Exam(s) Completed: Chest X-Ray PERIPHERAL IV DATA: Not applicable SIGNED BY: RT Los(Reji) July 03, 2024 12:58 PM documented in this encounterPrem[facility]12-23-2024 NoteHNO ID: [id number] Author: LUIS MAYES RT (R) Service: Radiology [...] PATIENT PRESENTS WITH AN IMPLANTABLE OR ATTACHED BRUSHER AND SHEARER: No RADIOLOGY DEPARTMENT: General X-ray: Exam(s) Completed: Chest X-Ray PERIPHERAL IV DATA: Not applicable SIGNED BY: RT Los(R) July 03, 2024 12:58 [facility]12-16-2024 NoteHNO ID: [id number] Author: FRANTZ AREVALO PA-C Service: ? Author Type: Physician Refinery Pipeline Operator Type: Progress Notes Filed: 06/26/2024 11:03 Note Text: This note was created using [email or web address]. Subjective Ghislaine Givens is a 34 year [...] - ICD9: 493.90, ICD10: J45.20 MIGUEL A [facility]12-16-2024 History of Present illness Narrative* Frantz Arevalo PA-C - 06/26/2024 10:55 AM EST This note was created using aitainment. Subjective Ghislaine Givens is a 34 year [...] J45.20 Frantz Arevalo PA-C documented in this encounterPrem[facility]01-12-2024 Procedure [facility]12-21-2023 History of Present illness Narrative* Andres Galaviz APRN.VOTING MACHINE REPAIRER - 07/01/2023 10:42 AM EST Images from [...] ophthalmology. Appointment scheduled today 115. Andres Galaviz APRN.VOTING MACHINE REPAIRER documented in this encounterPrem[facility]12-16-2023 Discharge summary Author [facility] June 26, 2023 6:14pm Note Date/Time June 26, 2023 12:09pm [facility] Medical Records Department [address] [place] [address] Emergency Department Summary 06/26/23 MR#: [id number] Acct: [id number] Name: GHISLAINE GIVENS Rep #:[id number] : 1990 33 From: Taiwo Chen MD [...] pharmacy. She denies any other new symptoms. [facility] Medical History Anxiety Asthma Constipation Depression [...] mg rectal suppository (Dulcolax (bisacodyl)) 10 mg GA DAILY 3 days #12 ea 01/15/23 [Rx [...] % (Auto) 63.6 Lymph % (Auto) 30.6 [place] % (Auto) 4.3 Eos % (Auto) 0.2 [...] [Dulcolax (bisacodyl)] 10 mg suppository 10 mg GA DAILY 3 Days Qty: 12 0RF Rx [...] your Primary Care Provider. Call [facility] ([phone]) or report to the closest Emergency Room. [...] applicable): cc: Dr. Sophy Gibbons ~* Signed [facility] Work Phone: 1(961) 159-522610-29-2023 Progress note Author Rickey Gifford [facility] May 09, 2023 11:46am Note Date/Time May 09, 2023 7 :55am [facility] Medical Records Department [address] [place] [address] Progress Note - Hospitalist 05/09/23751 MR#: [id number] Acct: [id number] Name: GHISLAINE GIVENS Rep #:[id number] : 1990 33 From: Rickey Gifford DO PCP: Care Physician,No Primary Status :ADM IN Location: [place] [address]-1 Reason for Visit Reason for Visit: Diagnoses [...] does have constipation. Also reviewing records through [facility]. Charges/Coding Visit Charges Inpatient E&M: 73078 Subs Hosp L3 05/09/23 1146 <Electronically signed by Rickey Gifford DO> Cosigner Signature (if applicable): CC: ~ Signed [facility] Work Phone: 1(137) 529-792810-29-2023 Progress note Author Stephan Forrest [facility] May 09, 2023 10:47am Note Date/Time May 09, 2023 1 0:19am [facility] Medical Records Department [address] [place] [address] Progress Note - Surgery 05/09/23 1018 MR#: [id number] Acct: [id number] Name: GHISLAINE GIVENS Rep #:[id number] : 1990 33 From: Stephan Gupta PM PCP: Care Physician,No Primary Status :ADM IN Location: [place] IY415-7 Subjective Subjective Ms. Givens is a 33-year-old [...] peripheral neuropathy: 05/09/23 1047 <Electronically signed by Stephan Forrest DPM> Cosigner Signature (if applicable): CC: ~ Signed [facility] Work Phone: 1(727) 650-910610-28-2023 Progress note Author Rickey Gifford [facility] May 08, 2023 10:48am Note Date/Time May 08, 2023 7 :51am [facility] Medical Records Department [address] [facility] [place] [address] Progress Note - Hospitalist 05/08/23 0749 MR#: [id number] Acct: [id number] Name: GHISLAINE GIVENS Rep #:[id number] : 1990 33 From: Rickey Gifford DO PCP: Care Physician,No Primary Status :ADM IN Location: [facility] WF871-8 Reason for Visit Reason for Visit: Diagnoses [...] with enoxaparin. Charges/Coding Visit Charges Inpatient E&M: 95825 Subs Hosp L2 05/08/23 1048 <Electronically signed by Rickey Gifford DO> Cosigner Signature (if applicable): CC: ~ Signed [facility] Work Phone: 1(385) 393-651910-28-2023 Progress note Author Stephan Forrest [facility] May 08, 2023 10:31am Note Date/Time May 08, 2023 9 :18am [facility] Medical Records Department [address] [place] [address] Progress Note - Surgery 05/08/23 0917 MR#: [id number] Acct: [id number] Name: GHISLAINE GIVENS Rep #:[id number] : 1990 33 From: Stephan Gupta PM PCP: Care Physician,No Primary Status :ADM IN Location: [place] QL666-9 Subjective Subjective Mrs. Givens is a 33-year-old [...] peripheral neuropathy: 05/08/23 1031 <Electronically signed by Stephan Forrest DPM> Cosigner Signature (if applicable): CC: ~ Signed [facility] Work Phone: 1(272) 413-610810-27-2023 Procedure [facility] 05-07-2023 Progress note Author Rickey Gifford [facility] May 07, 2023 12:40pm Note Date/Time May 07, 2023 1 2:36pm [facility] Medical Records Department [address] [place] [address] Progress Note - Hospitalist 05/07/23 1229 MR#: [id number] Acct: [id number] Name: GIVENSGHISLAINE BARBOURREBA Rep #:[id number] : 1990 33 From: Rickey Gifford DO PCP: Care Physician,No Primary Status :ADM IN Location: [place]3 FA084-7 Reason for Visit Reason for Visit: Diagnoses [...] her symptoms. Charges/Coding Visit Charges Inpatient E&M: 19041 Subs Hosp L2 05/07/23 1240 <Electronically signed by Rickey Gifford DO> Cosigner Signature (if applicable): CC: ~ Signed [facility] Work Phone: 1(893) 907-461510-26-2023 Consult note Author Rickey Gifford [facility] May 06, 2023 4:46pm Note Date/Time May 04, 2023 8 :30pm [facility] Medical Records Department [address] [place] [address] Pharmacokinetic/Renal -Consult 05/04/232026 MR#: [id number] Acct: [id number] Name: GHISLAINE GIVENS Rep #:[id number] : 1990 33 From: Otto enamorado PCP: Care Physician,No Primary Status :ADM IN Location: [place] [address] Consult Antibiotic Management Pharmacy has been consulted [...] will continue with 1000mg IV q8h per [facility] dosing protocol. Will check a trough before the 4th total dose tomorrow. Pharmacy Service will continue to monitor and adjust dosing as required. Follow-Up Labs Follow-Up Labs: Trough: Vancomycin Date/Time Labs Ordered Labs to be done on [date and time ordered]: 05/05/23 12:30 05/04/232030 <Electronically signed by Otto bolton> Date _ Otto Nolan 05/06/23 1646 <Electronically signed by Rickey Gifford DO> Cosigner Signature (if applicable): Date Rickey Gifford DO CC: ~ Signed [facility] Work Phone: [phone]) 967-302410-26-2023 Consult note Author Rickey Gifford [facility] May 06, 2023 4:46pm Note Date/Time May 05, 2023 2 :05pm [facility] Medical Records Department [address] [place] [address] Pharmacokinetic/Renal -Consult 05/05/23 1404 MR#: [id number] Acct: [id number] Name: GHISLAINE GIVENS Rep #:[id number] : 1990 33 From: Gage Trejo PCP: Care Physician,No Primary Status :ADM IN Y Location: [place]3 KV763-5 Consult Antibiotic Management Pharmacy has been consulted to manage selected antiobiotic: Vancomycin Type of Intervention Type of Consult: Follow-up Suspected Infection Suspected Infection: Skin/Soft tissue Prior Doses of Antibiotics Prior Doses of Antibiotics Received/Current Regimen: Vancomycin 1000 mg given 05/04 @ 2242, and 05/05 @ 4113 Labs Labs: Sodium 132 mmol/L (136-145) L [...] Date Rickey Gifford DO CC: ~ Signed [facility] Work Phone: 1(157) 905-272610-26-2023 Progress note Author Rickey Gifford [facility] May 06, 2023 2:03pm Note Date/Time May 06, 2023 8 :47am [facility] Medical Records Department [address] [place] [address] Progress Note - Hospitalist 05/06/23 0844 MR#: [id number] Acct: [id number] Name: GHISLAINE GIVENSREBA Rep #:[id number] : 1990 33 From: Rickey Gifford DO PCP: Care Physician,No Primary Status :ADM IN Location: [place] [address] Reason for Visit Reason for Visit: Diagnoses [...] (Auto) 40.5 L, Lymph % (Auto) 49.6H, [place] % (Auto) 8.4, Eos % (Auto) 0.3, [...] Reading Location ID and State: [facility] / [place] , Service support , Physical Exam Const [...] with enoxaparin. Charges/Coding Visit Charges Inpatient E&M: 62187 Subs Hosp L1 05/06/23 1403 <Electronically signed by Rickey Gifford DO> Cosigner Signature (if applicable): CC: ~ Signed [facility] Work Phone: 1(589) 832-368010-26-2023 Progress note Author Stephan Forrest [facility] May 06, 2023 8:10am Note Date/Time May 06, 2023 8 :10am [facility] Medical Records Department [address] [facility] [place] [address] Progress Note - Surgery 05/06/23801 MR#: [id number] Acct: [id number] Name: GHISLAINE GIVENS Rep #:[id number] : 1990 33 From: Stephan Gupta PM PCP: Care Physician,No Primary Status :ADM IN Location: [place] II333-0 Subjective Subjective Ms. Givens is a 33-year-old [...] (Auto) 40.5 L, Lymph % (Auto) 49.6H, [place] % (Auto) 8.4, Eos % (Auto) 0.3, [...] optimize healing. 05/06/23 0810 <Electronically signed by Stephan Forrest DPM> Cosigner Signature (if applicable): CC: ~ Signed [facility] Work Phone: 1(731) 107-567110-25-2023 Progress note Author Rickey Gifford [facility] May 05, 2023 1:09pm Note Date/Time May 05, 2023 7 :49am [facility] Medical Records Department [address] [place] [address] Progress Note - Hospitalist 05/05/23 0745 MR#: [id number] Acct: [id number] Name: ABDIGHISLAINE BARBOURREBA Rep #:[id number] : 1990 33 From: Rickey Gifford DO PCP: Care Physician,No Primary Status :ADM IN Location: [place] [address] Reason for Visit Reason for Visit: Diagnoses [...] 73.2 H, Lymph % (Auto) 14.9 L, [place] % (Auto) 10.2 H, Eos % (Auto) [...] % (Auto) 56.9, Lymph % (Auto) 30.9, [place] % (Auto) 11.1 H, Eos % (Auto) [...] with enoxaparin. Charges/Coding Visit Charges Inpatient E&M: 21501 Subs Hosp L2 05/05/23 1309 <Electronically signed by Rickey Gifford DO> Cosigner Signature (if applicable): CC: ~ Signed [facility] Work Phone: 1(206) 834-563210-25-2023 Progress note Author Stephan Forrest [facility] May 05, 2023 10:17am Note Date/Time May 05, 2023 8 :29am [facility] Medical Records Department [address] [place] [address] Progress Note - Surgery 05/05/23 0829 MR#: [id number] Acct: [id number] Name: GHISLAINE GIVENS Rep #:[id number] : 1990 33 From: Stephan Gupta PM PCP: Care Physician,No Primary Status :ADM IN Location: [place] PB468-2 Subjective Subjective Ms. Givens is a 33-year-old [...] 73.2 H, Lymph % (Auto) 14.9 L, [place] % (Auto) 10.2 H, Eos % (Auto) [...] % (Auto) 56.9, Lymph % (Auto) 30.9, [place] % (Auto) 11.1 H, Eos % (Auto) [...] State: [facility] / [place] , Service support , Physical Exam Narrative [...] peripheral neuropathy: 05/05/23 1017 <Electronically signed by Stephan Forrest DPM> Cosigner Signature (if applicable): CC: ~ Signed [facility] Work Phone: 1(765) 694-317410-24-2023 Consult note Author Stephan Forrest [facility] May 04, 2023 5:02pm Note Date/Time May 04, 2023 4 :48pm [facility] Medical Records Department [address] [place] [address] Consultation 05/04/23 1642 MR#: [id number] Acct: [id number] Name: GHISLAINE GIVENS Rep #:[id number] : 1990 33 From: Stephan Gupta PM PCP: Care Physician,No Primary Status :[facility] Location: [facility] A-1 Assessment & Plan Assessment/Plan (1) Type [...] is a 33 F who presented to [facility] emergency department for concerns for worsening [...] No other pedal complaints at this time. PFSH Medical History Anxiety Asthma Constipation Depression [...] mg rectal suppository (Dulcolax (bisacodyl)) 10 mg GA DAILY 3 days #12 ea 01/15/23 [Rx [...] 25 mg rectal suppository (Promethegan) 25 mg GA Q6H PRN PRN Nausea #6 supp 04/13/23 [...] 73.2 H, Lymph % (Auto) 14.9 L, [place] % (Auto) 10.2 H, Eos % (Auto) [...] EDT , 05/04/23 1702 <Electronically signed by Stephan Forrest DPM> Cosigner Signature (if applicable): CC: No Primary Care Physician~ Signed [facility] Work Phone: 1(841) 452-149210-24-2023 Procedure [facility] 05-04-2023 Discharge summary Author Javy Doss [facility] May 04, 2023 3:49pm Note Date/Time May 04, 2023 1 0:56am [facility] Medical Records Department [address] [place] [address] Emergency Department Summary 05/04/23 MR#: [id number] Acct: [id number] Name: GHISLAINE GIVENS Rep #:[id number] : 1990 33 From: Javy Doss DO PCP: Care Physician,No Primary [place] [facility] [place] [facility] A-1 HPI History of Present Illness Chief [...] denies any fever. Patient is a diabetic. [facility] Medical History (Updated 05/04/23 @ 13:11 [...] mg rectal suppository (Dulcolax (bisacodyl)) 10 mg GA DAILY 3 days #12 ea 01/15/23 [Rx [...] 25 mg rectal suppository (Promethegan) 25 mg GA Q6H PRN PRN Nausea #6 supp 04/13/23 [...] 73.2 H Lymph % (Auto) 14.[address] % (Auto) 10.2 H Eos % (Auto) [...] Diabetes, Leukocytosis Disposition Disposition: Acute Care Hospital [facility] Discharge Date/Time: 05/04/23 15:25 What to do if you have Problems For any increased pain, shortness of breath, bleeding, nausea or vomiting, chestpain, or any unexpected problems, contact your Primary Care Provider. Call [facility] ([phone]) or report to the closest Emergency Room. Call 911 if necessary. 05/04/23 2508 <Electronically signed by Javy Doss DO> Cosigner Signature (if applicable): CC: No Primary Care Physician ~ Signed [facility] Work Phone: 1(426) 991-803310-24-2023 History and physical note Author Rickey Gifford [facility] May 04, 2023 1:14pm Note Date/Time May 04, 2023 1 :13pm [facility] Medical Records Department [address] [place] [address] H&P Exam - Hospitalist 05/04/23 1309 MR#: [id number] Acct: [id number] Name: GHISLAINE GIVENS Rep #:[id number] : 1990 33 From: Rickey Gifford DO [...] Patient received vancomycin in the emergency room. [facility] Medical History (Updated 05/04/23 @ 13:11 [...] mg rectal suppository (Dulcolax (bisacodyl)) 10 mg GA DAILY 3 days #12 ea 01/15/23 [Rx [...] 25 mg rectal suppository (Promethegan) 25 mg GA Q6H PRN PRN Nausea #6 supp 04/13/23 [...] 73.2 H, Lymph % (Auto) 14.9 L, [place] % (Auto) 10.2 H, Eos % (Auto) [...] with enoxaparin. Charges/Coding Visit Charges Inpatient E&M: 66401 Init Hosp L2 05/04/23 131 <Electronically signed by Rickey Gifford DO> Cosigner Signature (if applicable): CC: Dr. Rickey Gifford DO; No Primary Care Physician~ Signed [facility] Work Phone: [phone]) 353-803610-24-2023 History and physical note Author Rickey Gifford [facility] May 04, 2023 1:14pm Note Date/Time May 04, 2023 1 :13pm [facility] Medical Records Department [address] [place] [address] H&P Exam - Hospitalist 05/04/23 1309 MR#: [id number] Acct: [id number] Name: GHISLAINE GIVENS Rep #:[id number] : 1990 33 From: Rickey Gifford DO [...] Patient received vancomycin in the emergency room. [facility] Medical History (Updated 05/04/23 @ 13:11 [...] mg rectal suppository (Dulcolax (bisacodyl)) 10 mg GA DAILY 3 days #12 ea 01/15/23 [Rx [...] 25 mg rectal suppository (Promethegan) 25 mg GA Q6H PRN PRN Nausea #6 supp 04/13/23 [...] 73.2 H, Lymph % (Auto) 14.9 L, [place] % (Auto) 10.2 H, Eos % (Auto) [...] 11:59 EDT Reading Location ID and State: [address] [place] [address] , Service support , Assessment & Plan [...] with enoxaparin. Charges/Coding Visit Charges Inpatient E&M: 86297 Init Hosp L2 05/04/23 1314 <Electronically signed by Rickey Gifford DO> Cosigner Signature (if applicable): CC: Dr. Rickey Gifford DO; No Primary Care Physician~ Signed [facility] Work Phone: [phone]) 185-296910-05-2023 History of Present illness Narrative* Stephan ePña APRN.CNP - 04/15/2023 11:13 AM EDT [facility]. Here today with abd pain and sob, patients crying. Breathing easy but appears in pain. O2 100% on RA. Will refer to ER, declines squad, friend to drive to ER. documented in [facility] History of Present illness Narrative* Claritza Sierra - 03/26/2023 2:21 PM EDT POPULATION HEALTH NAVIGATION OUTREACH Action/FYI [place] Support: Called pt to schedule an appt in Pain Management. Lvm for pt to call [phone] for scheduling. Patient Identified by Name and : NO Outreach Outcome/Action Unable to reach patient: Left message Did you use a PCP flex slot to schedule this appointment? No Reason for Outreach Care Gap or Scheduling/Wellness visits Payer: Payor: [place]ICA[place] / Plan: [employer] MEDICAID OF [place] / Product Type: Medicaid [...] 26, 2023 2:22 PM documented in this encounterPremier [facility]09-01-2023 History of Present illness Narrative* Pilar Magdaleno APRN.CNP - 03/12/2023 12:12 PM EDT Please let patient know Dr. Sun is not in network. I have placed an order for pain management through the [facility]. documented in this encounterPremier Health [facility]08-29-2023 Miscellaneous Notes* Telephone Encounter - Milagros Cloud RN - 03/09/2023 12:35 PM EDT Boyfriend calls and not listed on chart. Requested to speak to patient. Patient requesting pain management referral be faxed to Dr. rL. Faxed per request to [phone]. Milagros Cloud RN documented in this encounterPremier [facility]08-24-2023 NoteHNO ID: [id number] Author: Saida Lopez MD Service: ? Author Type: Physician Type: Progress Notes Filed: 03/11/2023 7:18 AM Note Text: Documentation Query Based on your medical judgment of the clinical indicators outlined below, please clarify the condition: (Please type X next to your response and sign) Clinical indicators: 03.03.23 Gastroenterology note VOTING MACHINE REPAIRER: Plan: Nausea with vomiting Generalized abdominal pain [...] psychiatric problems [facility]08-24-2023 NoteHNO ID: [id number] Author: Saida Lopez MD Service: ? Author [...] psych and GI. Discussed with social work coordinator/case hardener. OK to discharge the patient. Rest of management as outpatient. I personally spent more than 30 minutes for discharge of this patient. Discussed with unit PA/VOTING MACHINE REPAIRER about care plans. Recommended to see her [...] DATE: March 04, 2023 TIME: 11:57 [facility]08-24-2023 NoteHNO ID: [id number] Author: Cary Pino RN Service: Care Management [...] No Caregiver needed Transportation Arrangements Transportation Arrangements: [employer] and Phone #:: [employer] [phone] Date of Trip: 03/04/23 Time of Trip: 1730 Type of Service: Wheelchair Is Patient Medicaid Pending?: No Was transportation financial coverage discussed with family?: Patient First Officer [employer] Flight Instructor Location: [facility] Destination: Home Financial Care Management Responsibility: None [...] ED to Hosp-Admission (Current) from 03/01/2023 in [facility] Observation Unit Medical Follow-Up Appointment Specialty Psychaitry Behavior Health/Jose L Mccarthy Provider Name [facility] Address [address], [place] [address] Additional Instructions Please call for appointment to establish physician for mental health SIGNATURE: Cary Pino RN PATIENT NAME: Ghislaine Givens DATE: March 04, 2023 TIME: 11:26 AM CONTACT #: [phone] NoteHNO ID: [id number] Author: Cary Pino RN Service: Care Management [...] 04, 2023 TIME: 11:25 AM PAGER/CONTACT #: [phone] Note HNO ID: [id number] Author: Saida Lopez MD Service: ? Author [...] discharge in AM. Discussed with social work coordinator/case hardener. Advance diet. Physical Examination: GENERAL: alert, no [...] DATE: March 03, 2023 TIME: 3:15 [facility]08-23-2023 NoteHNO ID: [id number] Author: Frida Scott APRN.VOTING MACHINE REPAIRER Service: Gastroenterology Author Type: Nurse Practitioner Type: Plan of Care Filed: 03/03/2023 11:30 AM Note Text: DEPARTMENT OF GASTROENTEROLOGY AND HEPATOLOGY [facility] INPATIENT VISIT DATE AND TIME 03/03/23 [...] mild gastritis and an esophageal ulcer at [facility]. Patient presented from outpatient GI clinic [...] and re-consult as needed. SIGNATURE: Frida Scott APRN.VOTING MACHINE REPAIRER PAGER/CONTACT #: For concerns during days 7a-5p, contact CT TECH directly [phone] Please page [phone] for covering attending concernsThree [facility]08-22-2023 Telephone encounter Note* Telephone Encounter - Almita Kelly PA-C - 03/02/2023 2:30 PM EDT Hi, The patient needs outpatient GES for persistent nausea and vomiting once optimized. Orders placed. The patient is a Dr. Doran patient and should follow- up with him. Thanks! Almita Kelly PA-C Gastroenterology and Hepatology [facility]08-22-2023 Miscellaneous Notes* Telephone Encounter - Almita Kelly PA-C - 03/02/2023 2:30 PM EDT Hi, The patient needs outpatient GES for persistent nausea and vomiting once optimized. Orders placed. The patient is a Dr. Doran patient and should follow- up with him. Thanks! Almita Kelly PA-C Gastroenterology and Hepatology documented in this encounterPremier Health [facility]08-22-2023 History of Present illness Narrative* Claritza Sierra - 03/02/2023 1:27 PM EDT POPULATION HEALTH NAVIGATION OUTREACH Action/[facility] [place] Support: Called pt to schedule an appt [...] [place] / Plan: [employer] MEDICA[employer] [facility] / Product Type: Medicaid / Care [...] 02, 2023 1:27 PM documented in this encounterPremier Health [facility]08-22-2023 NoteHNO ID: [id number] Author: Ghislaine Mancilla RN Service: ? Author Type: Registered Nurse Type: Progress Notes Filed: 03/02/2023 5:47 PM Note Text: IV access lost. X2 RN attempted to get new access with no success. AMET and NOM notified and states will come and attempt soon. CT TECH notified via secure chat. Patient also complains of pain for second time this shift and CT TECH notified for second time as well. States tylenol did not work when given during morning medication rounds. Patient now walking halls as she states movement helps with pain at times. Informed CT TECH of patient calus/wound to right foot as [...] aware and MOVIPREP will be moved to caustic cresylate shift superintendent to attempt at a later time. As patient states she cannot tolerate drinking. 1730 Patient ordered oral contrast dye with CT. photovoltaic testing technician states patient refusing to drink oral contrast. GI made aware via secure chat but no changes to orders made at this time. Patient will be sent to room with contrast dye per photovoltaic testing technician. If pt drinks contrast and can keep in her body CT asked to be called and patient will then have the scan.[facility] 03-02-2023 NoteHNO ID: [id number] Author: Cary Pino RN Service: Care Management Author Type: Registered Nurse Type: Care Mgt Initial Assessment Filed: 03/02/2023 10:24 AM Note Text: CARE MANAGEMENT: ASSESSMENT AND DISCHARGE PLAN SERVICE DATE: March 02, 2023 SERVICE TIME: 8:46 AM PCP: Amy Solorzano NP Primary Contact: Extended Emergency Contact Information Primary Emergency Contact: Jessie Givens Relation: Aunt Secondary Emergency Contact: Rhoan Givens Relation: Grandparent Admission Status: Inpatient Insurance Provider: [employer] MEDICAID [place] Discharge Planning requested by: Per Department Practice Potential Transition Plans Home Advance Directives Current Advance Directive: None Pin Attacher Attempted to Assist with AD Completion: Yes [...] General wellness, Be able to go home Mead of Choice Explained: Mead of Choice Given: No Reason Not Given: [...] during this admission, please contact Case Management. [phone]. [employer] transport will be needed once stable for discharge. HX Depression Bipolar disorder DM SIGNATURE: Cary Pino RN PATIENT NAME: Ghislaine Givens DATE: March 02, 2023 TIME: 8:46 AM CONTACT #: [phone] History of Present illness Narrative* Dewayne Doarn MD - 03/01/2023 10:40 AM EDT NAME: Ghislaine Givens AGE: [age] year old Referred by: Pilar Magdaleno [address] [place] [address] Referred for: an opinion regarding nausea and [...] Past Histories independently gathered by the clinical applications support engineer and the remaining scribed note accurately describes [...] PHYSICIAN Dewayne Doran MD documented in this encounterPremier Health [facility]08-15-2023 History of Present illness Narrative* Pilar Magdaleno, ROSA.VOTING MACHINE REPAIRER - 02/23/2023 10:11 AM EDT Chief Complaint Patient presents with: [facility] F/U [facility] Ghislaine Givens is a 33 year [...] - CONSULT TO PAIN MGT Pilar Magdaleno APRN.VOTING MACHINE REPAIRER documented in this encounterPremier Health [facility]08-08-2023 Note. MICRO - Microbiology PROCEDURE: [...] Locations *1: This test was performed at: [facility], [address] [place] [address], [facility]- , [facility] [place]02-16-2023 Note. MICRO - Microbiology PROCEDURE: Blood Culture [...] Locations *1: This test was performed at: [facility], [address] [place] [address], [address]- , [facility] [place]02-11-2023 Hospital Discharge instructions Patient Education 02/11/2023 17:15:56 [...] as coffee and soda. Take and apply bhbg-iqu-yanhbll and prescription medicines only as told by [...] 10/06/2017 Document Revised: 11/04/2018 Document Reviewed: 10/06/2017 [employer] Patient Education 2020 [employer]. 02/11/2023 17:15:45 Nausea, Adult, Syel-uo-Gcpb Nausea, Adult Nausea is feeling sick to [...] fruit juice). ?Low-calorie sports drinks. Eat bland, omjq-qe-qjklfl foods in small amounts as you are able, such as: ?Bananas. ?Applesauce. ?Rice. ?Low-fat (lean) meats. ?Paradis. ?Crackers. Avoid drinking fluids that have a lot of sugar or caffeine in them. This includes energy drinks, sports drinks, and soda. Avoid alcohol. Avoid spicy or fatty foods. General instructions Take azqo-zpd-ijefnwc and prescription medicines only as told by your doctor. Rest at home while you get better. Drink enough fluid to keep your pee (urine) pale yellow. Take slow and deep breaths when you feel sick to your stomach. Avoid food or things that have strong smells. Wash your hands often with soap and water. If you cannot use soap and water, use hand cigar tobacco rehandler. Make sure that all people in your [...] drink what your doctor tells you. Take cknm-tzo-cvpnfjf and prescription medicines only as told by [...] 06/16/2012 Document Revised: 12/06/2018 Document Reviewed: 12/06/2018 YAM[employer] Patient Education 2020 [employer]. Follow Up Care 02/10/2023 23:24:03 [facility] Address: [address] [place] [address] [phone] When:3-5 days Comments:Please call to schedule your post-hospital follow-up appointment. [facility] 08-03-2023 Note Date of Service 02/11/2023 Chief Complaint C/o generalized ABD pain, N/V, multiple recent falls. States she has not been checking her blood sugar either. States she is supposed to be using insulin for DM. History of Present Illness 33-year-old female with past medical history significant for HTN, type 2 diabetes mellitus, neuropathy, depression/anxiety, asthma, cannabis use. Patient presented to [facility] emergency department on 02/10/2023 with a [...] and pelvis with contrast. 01/07/2023 and 01/09/2023 [facility] ED visit 01/10/2023 [facility] ED visit. CT abdomen and pelvis with contrast that showed left hydrosalpinx, mildly dilated CBD with adjacent more than expected khurram hepatis adenopathy which may be reactive. She was treated with IV fluids and antiemetics and discharged. 01/12/2023 and 01/13/2023 [facility] ED visit treated with IV fluids and antiemetics, haldol and discharged. 01/14/2023 [facility] emergency department visit. IV fluids and antiemetics given. Admitted for hypokalemia. CT abdomen and pelvis with bilateral small ovarian cysts. 01/17/[address] [facility] [address] abdomen and pelvis with contrast showed underfilling versus mucosal thickening at rectosigmoid colon. Otherwise unremarkable. 01/24 [facility] emergency department visit. Discharged with a prescription for Keflex and Reglan. No imaging done. 01/25 [facility] emergency department treated with IV fluids and antiemetics. 727: She was seen in urgent care and advised to go to the emergency department. [facility] ED visit treated with IV fluids and antiemetics and discharged. She was seen at [facility] on 02/08. She had CT [...] by MARTI WEBB on 02/11/2023 07:14 PM [facility]08-03-2023 Note Discharge Instructions Thank you for allowing [facility] to assist you with your healthcare needs. The following is importantdischarge information regarding your hospital visit. Your Care Team [facility] Your Diagnosis Abdominal pain Hyponatremia [...] post-hospital follow-up appointment. Where: [address] [place] [address] [phone] The Following Activity and Diet Have Been [...] a day Duration: 7 Days Pickup at [facility] Unchanged promethazine (promethazine 25 mg rectal suppository) 1 suppository(ies) in the rectum Every 6 hours as needed for for nausea/vomiting Cannabis hyperemesis syndrome co-occurrent and due to cannabis abuse Pharmacy Information [facility]: [address] [place], [place] [phone] What How Much When Why Comments Stop [...] as coffee and soda. Take and apply wtdj-cac-aicxzlt and prescription medicines only as told by [...] 10/06/2017 Document Revised: 11/04/2018 Document Reviewed: 10/06/2017 YAM[employer] Patient Education 2020 [employer] Nausea, Adult Nausea is feeling sick [...] juice). ? Low-calorie sports drinks. Eat bland, ebym-qx-oegvbh foods in small amounts as you are able, such as: ? Bananas. ? Applesauce. ? Rice. ? Low-fat (lean) meats. ? Paradis. ? Crackers. Avoid drinking fluids that have a lot of sugar or caffeine in them. This includes energy drinks, sports drinks, and soda. Avoid alcohol. Avoid spicy or fatty foods. General instructions Take fqvd-tlk-bnydjqh and prescription medicines only as told by your doctor. Rest at home while you get better. Drink enough fluid to keep your pee (urine) pale yellow. Take slow and deep breaths when you feel sick to your stomach. Avoid food or things that have strong smells. Wash your hands often with soap and water. If you cannot use soap and water, use hand cigar tobacco rehandler. Make sure that all people in your [...] drink what your doctor tells you. Take ocea-swu-nljinmn and prescription medicines only as told by [...] 06/16/2012 Document Revised: 12/06/2018 Document Reviewed: 12/06/2018 YAMAP Patient Education 2020 Voicebase. Additional Information VACCINATE! IT SAVES LIVES! Members of the community who have not yet received the COVID-19 vaccine and would like to receive it can visit one of [facility] vaccine clinics. There are many vaccine clinic locations within the [facility]. For locations and available times, please visit https://gettheshot.coronavirus.[place].gov/. It is important to note that some COVID mobile vaccine clinics are held outdoors and may be canceled in rainy or stormy conditions. To learn more about pediatric vaccinations (ages 5-11), we invite you to visit the [facility] webpage. https://www.[email or web address].org/pages/5698-Gzbis-Mjihkxdvfkc-Ytoqprjfsk-Sacrm-Bwt stions.htmlTo learn more about the COVID-19 vaccine, we invite you to visit the CDC website for a list of frequently asked questions.https://www.cdc.gov/coronavirus/2019-ncov/vaccines/faq.html [facility] Patient Portal Access Instructions: Stay connected with your healthcare team and access your personal medical information anytime with the [facility] Patient Portal. Please follow the directions below to create your [facility] account: 1.Access the email account you provided upon registration to the hospital/physician office.2.Look for an invitation email from [facility].3.Open the email and access the invitation link: AcceptInvitation to [facility].4.Fill in the required joy to create your account. To access your account, visit [employer]. Click the blue button labeled Access Patient Portal and then log in with the username and password that you created in the steps above. You will be able to view your test results, lab results, a summary of your visits, upcoming appointments and more. There is also a convenient messaging option where you can send secure messages to your p [employer] Systemsvider. In addition, you will have the ability to download any documents or summaries to your computer and/or send the information securely to a physician. Remember that your healthcare information is confidential, so carefully consider who you will allowto register on the [facility] Patient Portal for access to your information. You can also access the [facility] Patient Portal on the [facility] della. Simply click on Patient Portal and then log into your account. If you would like to receive a full copy of your medical records, please contact the [facility] Medical Records Department by calling [phone], Wednesday through Wednesday between 8 a.m. and [...] Call your local pharmacy or go to [email or web address] to find one close to you.3.Make use of household items: Use cat litter or old coffee grounds to dispose medications if other options arenot available. Mix your drugs with these household products, seal them in an airtight container andthrow it into the garbage. Call [facility]: [phone] to be sure your drugs can be [...] Education Materials Cannabinoid Hyperemesis Syndrome Nausea, Adult, Pprz-kx-Ijtq Medication Leaflets My discharge plan and instructions have been reviewed and explained to me and I,GHISLAINE GIVENS understand my current condition and have read and understand these discharge instructions. I have received a written copy of the plan/instructions. If I have questions, I am aware that I should contact my doctor. Patient/Product Tester Signature: Date/Time: Relationship to Patient: Witness Name/Signature: Date/Time: [facility]08-03-2023 Note ORIGINAL EXAMINATION: GASTRIC EMPTYING STUDY02/11/2023 2:37 [...] Date: 02/11/2023 3:41:00 PM [facility] Evaluation + Plan noteExtracted from: Title:History and Physical Author:MARTI WEBB SPECIALTY SALES REPRESENTATIVE-VOTING MACHINE REPAIRER Date:02/11/23 1. Abdominal pain 2. Hyponatremia 3. [...] and may include grammatical and/or spelling errors. [facility] 08-03-2023 Note ORIGINAL EXAMINATION: TRANSVAGINAL PELVIC ULTRASOUND02/11/2023 [...] Sign Date: 02/11/2023 12:11:13 PM Ordering Provider: [address]03-2023 Note ORIGINAL EXAMINATION: ONE SUPINE XRAY [...] Sign Date: 02/11/2023 9:28:54 AM Ordering Provider: [address]03-2023 Note ORIGINAL EXAMINATION: COMPLETE ABDOMINAL ULTRASOUND [...] [facility] of Present illness Narrative* Vadim Hanna PA - 02/04/2023 2:18 PM EDT [...] that due to limited diagnostic capabilities in [facility], I recommend she go back to the ER since she is having pain and unable to keep down fluids. She understands. She does have a PCP, but would like a new one. I had our project scheduler help with scheduling a PCP appointment for the future, but still advise she go to the ER today. documented [facility] Hospital Discharge instructions* Discharge Instructions* Stephan Ramirez MD - 01/24/2023 12:32 PM EDT [...] your visit today. Please [facility] with any questions or concerns about your results today. Thank you for choosing [facility] for your care. Sincerely, Stephan Ramirez MD documented in this [facility]07-16-2023 Emergency department Note* Stephan Ramirez MD - 01/24/2023 10:03 AM EDT [facility] ED EMERGENCY DEPARTMENT ENCOUNTER Pt Name: Ghislaine Givens Birthdate 1990 Date of evaluation: 01/24/2023 Provider: Stephan Ramirez MD CHIEF COMPLAINT Chief Complaint Patient [...] Culture. Procedure Abnormality Status --------- ------ Complete Urinalysis[[id number]] Abnormal Final result Please view results for [...] of DVT, no recent surgery/immobilization. Based on kyrgyz syncope rule (see below), patient is low risk and well appearing here, plan to discharge the patient home with PMD follow up. [place] syncope rule: predisposition to vasovagal symptoms/consistent with [...] discharge. [NEVA] ED Course User Index [NEVA] Stephan Ramirez MD Diagnoses as of 01/24/23 1303 [...] 01:00:46 PM PATIENT REFERRED TO: Amy Solorzano [facility] [id number] Schedule an appointment as soon as [...] but occasionally words and phrases are mis-transcribed.) Stephan Ramirez MD K[facility]NA Emergency Medicine Physician Acute [facility] Stephan Ramirez MD 01/24/23 1303 * Tamica Penaloza RN - 01/24/2023 10:03 AM EDT Patient to room 15 with c/o vomiting for 3 weeks. Patient reports being at [facility] and being told it was [facility], and there was nothing more they could do for her. Patient reports having Zofran at home that she doesn't take, because it has not relieved her symptoms. V/S obtained, call light within reach. documented in this [facility]07-16-2023 Emergency department Triage note* Tamica Penaloza RN - 01/24/2023 10:03 AM EDT Patient to room 15 with c/o vomiting for 3 weeks. Patient reports being at [facility] and being told it was [facility], and there was nothing more they could do for her. Patient reports having Zofran at home that she doesn't take, because it has not relieved her symptoms. V/S obtained, call light within reach. [facility] [id number] Physician Emergency department Note* Stephan Ramirez MD - 01/24/2023 10:03 AM EDT [facility] ED EMERGENCY DEPARTMENT ENCOUNTER Pt Name: Ghislaine Givens Birthdate 1990 Date of evaluation: 01/24/2023 Provider: Stephan Ramirez MD CHIEF COMPLAINT Chief Complaint Patient [...] Culture. Procedure Abnormality Status --------- ------ Complete Urinalysis[[id number]] Abnormal Final result Please view results for [...] of DVT, no recent surgery/immobilization. Based on kyrgyz syncope rule (see below), patient is low risk and well appearing here, plan to discharge the patient home with PMD follow up. [place] syncope rule: predisposition to vasovagal symptoms/consistent with [...] discharge. [NEVA] ED Course User Index [NEVA] Stephan Ramirez MD Diagnoses as of 01/24/23 1303 [...] PM PATIENT REFERRED TO: Amy Solorzano [address] [facility] [phone] Schedule an appointment as soon as possible [...] but occasionally words and phrases are mis-transcribed.) Stephan Ramirez MD KIANA Emergency Medicine Physician [facility] Stephan Ramirez MD 01/24/23 1303 [facility] [id number] Discharge summary Author Lexus Villatoro [facility] January 15, 2023 2:12pm Note Date/Time January 15, 2023 2:11p m [facility] Medical Records Department [address] [place] [address] Instructions for Home/Discharge Instructions 01/15/23 1411 MR#: [id number] Acct: [id number] Name: GIVENSGHISLAINE Rep #:[id number] : 1990 32 From: Lexus Villatoro MD PCP: [facility] St atus:ADM BOB Discharge Instructions [...] Attending Provider: Lexus Villatoro [facility] Instructions Patient Instructions: Cannabinoid Hyperemesis Syndrome, [...] [Dulcolax (bisacodyl)] 10 mg suppository 10 mg GA DAILY 3 Days Qty: 12 0RF Rx [...] 7 0RF [facility]errals / [facility] Up: [facility] [Primary Care Provider] - Within 1 Week Disposition Disposition (needs filled in before D/C Order can be placed): Home, Self Care 01/15/23 1411<Electronically signed by Lexus Villatoro MD>Lexus Villatoro MD CC: [facility] ~ Signed ADDENDUM by Dr. Lexus Villatoro MD on 01/15/23 at 1412 You were noted to have a small ovarian cyst, this was seen previous on a scan ofyour abdomen as well. Please follow up with your PCP or ob/clam shucker for further management and monitoring 01/15/23 1412<Electronically signed by Lexus Villatoro MD>Lexus Villatoro MD cc: [facility] ~* Signed [facility] Work Phone: 1(697) 487-488107-07-2023 Discharge summary Author Lexus Villatoro [facility] January 15, 2023 2:23pm Note Date/Time January 15, 2023 2:12p m [facility] Medical Records Department [address] [place] [address] Discharge Summary 01/15/231410 MR#: [id number] Acct: [id number] Name: GHISLAINE GIVENS Rep #:[id number] : 1990 32 From: Lexus Villatoro MD PCP: [facility] St atus:ADM BOB Location: [address] Providers Date of Admission: 01/14/23 Date of Discharge: 01/15/23 Primary Care Physician: [facility] Reason For Visit: INTRACTABLE NAUSEA VOMITING, HYPOKALEMIA [...] complication status: with neurologic complications Diabetes mellitus contract engineer insulin use: without contract engineer use Diabetes mellitus type: type 2 Plan [...] mg rectal suppository (Dulcolax (bisacodyl)) 10 mg GA DAILY 3 days #12 ea 01/15/23 scopolamine base 1 mg over 3 days transdermal patch 1 patch transdermal Q3D PRN nausea and vomiting #4 ea 01/15/23 Hospital Course Summary of Care Provided Minutes Spent on Discharge: 31 Hospital Course: GHISLAINE GIVENS, is a 32-year-old female with history of type 2 diabetes mellitus, hypertension, depression who presents to [facility] 01/14/2023 with 1 week of nausea, [...] diet for this, [facility] D/c instructions as follows: -Would recommend lab [...] Please follow up with your PCP or ob/clam shucker for further management and monitoring -Please call [...] % (Auto) 56.4, Lymph % (Auto) 34.2, [place]% (Auto) 8.2, Eos % (Auto) 0.3, Baso [...] Attending Provider: Lexus Villatoro Primary Care Provider: [facility] Sophy Santiago Instructions Patient Instructions: Cannabinoid [...] Please follow up with your PCP or ob/clam shucker for further management and monitoring -Please call [...] [Dulcolax (bisacodyl)] 10 mg suppository 10 mg GA DAILY 3 Days Qty: 12 0RF Rx [...] 7 0RF Referrals / Follow Up: [facility] [Primary Care Provider] - Within 1 Week Disposition Disposition (needs filled in before D/C Order can be placed): Home, Self Care Charges/Coding Visit Charges Inpatient E&M: 59872 Disch Hosp >30min 01/15/23 1423 <Electronically signed by Lexus Villatoro MD> Cosigner Signature (if applicable): CC: Dr. Lexus Villatoro MD; [facility]~ Signed [facility] Work Phone: 1(556) 462-559907-06-2023 History and physical note Author Lexus Villatoro [facility] January 14, 2023 6:10pm Note Date/Time January 14, 2023 3:59p m [facility] Medical Records Department [address] [place] [address] H&P Exam - Hospitalist 01/14/23 1552 MR#: [id number] Acct: [id number] Name: GHISLAINE GIVENS Rep #:[id number] : 1990 32 From: Lexus Villatoro MD PCP: [facility] St atus:ADM BOB Location: [place] [address] HPI - General General Date of Admission: 01/14/23 Date of Service: 01/14/23 Chief Complaint: Nausea HPI Narrative GHISLAINE GIVENS, is a 32-year-old female with history of type 2 diabetes mellitus, hypertension, depression who presents to [facility] 01/14/2023 with 1 week of nausea, [...] urinating regularly. Denies any other specific complaints [facility] Medical History Anxiety Asthma Constipation Depression [...] % (Auto) 59.7, Lymph % (Auto) 31.2, [place]% (Auto) 7.7, Eos % (Auto) 0.2, Baso [...] Clarity Clear, Urine pH 8.0, Ur Specific [place] 1.015, Urine Protein 15 H, Urine Glucose [...] documentation, 58minutes Charges/Coding Visit Charges Inpatient E&M: 98736 Init Hosp L2 01/14/23 1810 <Electronically signed by Lexus Villatoro MD> Cosigner Signature (if applicable): CC: Dr. Lexus Villatoro MD; [facility]~ Signed [facility] Work Phone: 1(281) 230-475407-06-2023 Discharge summary Author Willie Dhillon [facility] January 14, 2023 3:33pm Note Date/Time January 14, 2023 12:08 pm [facility] Medical Records Department [address] [place] [address] Emergency Department Summary 01/14/23 MR#: [id number] Acct: [id number] Name: GHISLAINE GIVENS Rep #:[id number] : 1990 32 From: Willie Dhillon MD PCP: [facility] St atus:REG ER Location: ED [...] had any for a day or so. [facility] Medical History Anxiety Asthma Constipation Depression [...] % (Auto) 59.7 Lymph % (Auto) 31.2 [place] % (Auto) 7.7 Eos % (Auto) 0.2 [...] Clarity Clear Urine pH 8.0 Ur Specific [place] 1.015 Urine Protein 15 H Urine Glucose [...] 13:57 EDT Reading Location ID and State: [facility] / [place] , Service support , Discharge Plan Dx/Rx/DC Orders Clinical Impression: Failure of outpatient treatment, Elevated serum creatinine, Intractable nausea and vomiting, Acute hypokalemia Disposition Disposition: [facility] What to do if you have Problems For any increased pain, shortness of breath, bleeding, nausea or vomiting, chestpain, or any unexpected problems, contact your Primary Care Provider. Call [facility] ([phone]) or report to the closest Emergency Room. Call 911 if necessary. 01/14/23 1533 <Electronically signed by Willie Dhillon MD> Cosigner Signature (if applicable): CC: [facility] ~ Signed [facility] Work Phone: 1(606) 257-985507-04-2023 Discharge summary Author Fabricio Guevara [facility] January 12, 2023 1:18pm Note Date/Time January 12, 2023 10:58 am [facility] Medical Records Department [address] [place] [address] Emergency Department Summary 01/12/23 MR#: [id number] Acct: [id number] Name: GHISLAINE GIVENS Rep #:[id number] : 1990 32 From: Fabricio Guevara MD PCP: [facility] St atus:REG ER Location: ED [...] similar symptoms: Yes Recent Illness/Hospitalization: No PFSH [facility] Medical History Anxiety Asthma Constipation Depression [...] 30 minutes before bedtime [facility] [[facility] Care Provider] - 3-5 Days if not improving Activity Restrictions/Additional Instructions: Zofran as needed for nausea. Follow-up with your doctor as needed. Stop using marijuana. Disposition Disposition: Home, Self Care What to do if you have Problems For any increased pain, shortness of breath, bleeding, nausea or vomiting, chestpain, or any unexpected problems, contact your Primary Care Provider. Call [facility] ([phone]) or report to the closest Emergency Room. Call 911 if necessary. 01/12/23 1318 <Electronically signed by Fabricio Guevara MD> Cosigner Signature (if applicable): CC: [facility] ~ Signed [facility] Work Phone: [phone]) 494-537307-04-2023 Note. MICRO - Microbiology PROCEDURE: Urine Culture [...] Locations *1: This test was performed at: [facility], [address] [place] [address], [address]- , [facility] ([place])01-10-2023 Hospital Discharge instructions Patient Education 01/10/2023 17:43:53 [...] and water are not available, use alcohol-based cigar tobacco rehandler to keep from spreading the infection to [...] Yellow color of the eyes or skin 5164-7990 [facility]. [address] [place] [address], [place] [address]. All rights reserved. This information is not [...] National Alcohol and Substance Abuse Information Center (780)-180-0070 www.addictioncareoptions.com National [place] on Alcoholism and Drug Dependence 326-567-0243 www.ncadd.org Marijuana Anonymous 135-253-4829 www.marijuana-anonymous.org When to seek medical advice Call your healthcare provider right away if any of these occur: You feel extreme depression, fear, anxiety, or anger toward yourself or others. You feel out of control. You feel that you may try to harm yourself or another. You experience chest pain or shortness of breath. 4049-3387 [facility]. [address] [place] [address], [place] [address]. All rights reserved. This information is not intended as a substitute for professional medical care. Always follow yourhealthcare professional's instructions. Follow Up Care 01/10/2023 13:44:57 With:Call Physician Referral Address:Unknown When:2-4 days [facility] 07-02-2023 Note Discharge Instructions Thank you for [...] may report side effects to FDA at 0-516-AUW-1088. What other drugs will affect promethazine? Using promethazine with other drugs that make you drowsy can worsen this effect. Ask your doctor before using opioid medication, a sleeping pill, a muscle relaxer, or medicine for anxiety or seizures. Other drugs may affect promethazine, including prescription and mbnv-mcu-oelmdnl medicines, vitamins, and herbal products. Tell your [...] to ensure that the information provided by [employer]. ('[employer]') is accurate, up-to-date, and complete, but no guarantee is made to that effect. Drug information contained herein may be time sensitive. [employer] information has been compiled for use by healthcare practitioners and consumers in the [place] and therefore [employer] does not warrant that uses outside of the [place] are appropriate, unless specifically indicated otherwise. [employer] drug information does not endorse drugs, diagnose patients or recommend therapy. [employer] drug information isan informational resource designed to [...] effective or appropriate for any given patient. [employer] does not assume any responsibility for any aspect of healthcare administered with the aid of information [employer] provides. The information contained herein is not intended to cover all possible uses, directions, precautions, warnings, drug interactions, allergic reactions, or adverse effects. If you have questions about the drugs you are taking, check with your doctor, nurse or pharmacist. Copyright 7179-0173 [employer]. Version: 8.01. Revision Date: 08/06/2021. prochlorperazine (oral/injection) (pro klor PER a huyen) What is the most important information I [...] What is prochlorperazine? Prochlorperazine is a phenothiazine (VCTY-zu-YHCH-a-zeen) antipsychotic medicine that is used to treat [...] may report side effects to FDA at 1-586-QRZ-4732. What other drugs will affect prochlorperazine? Using [...] may affect prochlorperazine. This includes prescription and hxqz-jvb-vnegast medicines, vitamins, and herbal products. Not all [...] to ensure that the information provided by [employer]. ('[employer]') is accurate, up-to-date, and complete, but no guarantee is made to that effect. Drug information contained herein may be time sensitive. [employer] information has been compiled for use by healthcare practitioners and consumers in the [place] and therefore [employer] does not warrant that uses outside of the [place] are appropriate, unless specifically indicated otherwise. [employer] drug information does not endorse drugs, diagnose patients or recommend therapy. [employer] drug information isan informational resource designed to [...] effective or appropriate for any given patient. [employer] does not assume any responsibility for any aspect of healthcare administered with the aid of information [employer] provides. The information contained herein is not intended to cover all possible uses, directions, precautions, warnings, drug interactions, allergic reactions, or adverse effects. If you have questions about the drugs you are taking, check with your doctor, nurse or pharmacist. Copyright 6020-5586 [employer]. Version: 12.. Revision Date: 11/03/2019. Education Materials [...] and water are not available, use alcohol-based cigar tobacco rehandler to keep from spreading the infection to [...] Yellow color of the eyes or skin 5097-9095 [facility]. [address] [place] [address]. All rights reserved. This information is not [...] National Alcohol and Substance Abuse Information Center (871)-613-6231 www.addictioncareBio Architecture Lab.com National [place] on Alcoholism and Drug Dependence 581-817-0131 www.ncadd.org Marijuana Anonymous 787-752-4767 www.marijuana-anonymous.org When to seek medical advice Call your healthcare provider right away if any of these occur: You feel extreme depression, fear, anxiety, or anger toward yourself or others. You feel out of control. You feel that you may try to harm yourself or another. You experience chest pain or shortness of breath. 0621-0199 [facility]. [address] [place] [address]. All rights reserved. This information is not intended as a substitute for professional medical care. Always follow yourhealthcare professional's instructions. Additional Information VACCINATE! IT SAVES LIVES! Members of the community who have not yet received the COVID-19 vaccine and would like to receive it can visit one of [facility] vaccine clinics. There are many vaccine clinic locations within the [facility]. For locations and available times, please visit www.gettheshot.coronavirus.[place].gov/. It is important to note that some COVID mobile vaccine clinics are held outdoors and may be canceled in rainy or stormy conditions. To learn more about pediatric vaccinations (ages 5-11), we invite you to visit the [facility] webpage. https://www.[facility].org/pages/2558-Wjvmf-Dcqmzftzarz-Qjgdaeabmd-Xawtv-Omb stions.htmlTo learn more about the COVID-19 vaccine, we invite you to visit the CDC website for a list of frequently asked questions. https://www.cdc.gov/coronavirus/2019-ncov/vaccines/faq.html [facility] Patient Portal Access Instructions: Stay connected with your healthcare team and access your personal medical information anytime with the [employer] Patient Portal. If you would like a full copy of your medical records please contact the [facility] Medical Records Department Wednesday through Wednesday between 8a.m. and 4:30p.m. Please follow the directions below to access the portal: 1.Access the email account you provided upon registration to the hospital.2.Look for an invitation email from [facility].3.Open the email and access the invitation link: Accept Invitation to [facility]4.Fill in the required joy to create your account. Sign into www.Reward Gateway with your username and password that you [...] you will allow to register on the [facility] Patient Portal for access to your information. You can also access the [facility] Patient Portal on the [employer] della. Simply click on Health Records under [employer] and then click on the Lexy logo. HOW TO SAFELY DISPOSE OF PRESCRIPTION [...] Call your local pharmacy or go to http://bit.LIKECHARITY/8U6Xe5p to find one close to you.3.Make use of household items: Use cat litter or old coffee grounds to dispose medications if other options arenot available. Mix your drugs with these household products, seal them in an airtight container andthrow it into the garbage. Call [facility]: [phone] to be sure your drugs can be [...] aware that I should contact my doctor. Patient/Product Tester Signature: Date/Time: Relationship to Patient: Witness Name/Signature: Date/Time: [facility] Michaelirma [id number] Note ORIGINAL EXAMINATION: CT OF THE ABDOMEN [...] Date: 01/10/2023 4:59:31 PM [facility]ing [id number] Note ORIGINAL EXAMINATION: CT OF THE ABDOMEN [...] Date: 01/10/2023 4:59:31 PM Ordering Provider: ESSIE [facility]07-02-2023 Evaluation + Plan note Diagnostic Tests Pending * Urine Culture 01/10/23 [facility] 06-29-2023 Discharge summary Author Poli Barfield [facility] January 07, 2023 2:08pm Note Date/Time January 07, 2023 8:55 am [facility] Medical Records Department [address] [place] [address] Emergency Department Summary 01/07/23 MR#: [id number] Acct: [id number] Name: GHISLAINE GIVENS Rep #:[id number] : 1990 32 From: Poli Farah PCP: [facility] St atus:REG ER Location: ED [...] clinician: N/A This note was generated with Silverback Learning Solutionsation software. It may contain incorrectwords, spelling, and [...] % (Auto) 53.2 Lymph % (Auto) 38.5 [place] % (Auto) 5.9 Eos % (Auto) 1.0 [...] Days Qty: 21 0RF [facility]: [facility] [Primary Care Provider] - 3-5 Days Activity [...] your Primary Care Provider. Call [facility] ([phone]) or report to the closest Emergency Room. Call 911 if necessary. 01/07/23 1408 <Electronically signed by Poli Farah> Cosigner Signature (if applicable): CC: [facility] ~ Signed [facility] Work Phone: 1(772) 655-847605-09-2023 History of Present illness Narrative* Andres Galaviz APRN.VOTING MACHINE REPAIRER - 11/17/2022 8:45 AM EDT Images from [...] of care. This note was generated using [employer] software. It may contain errors in wording, punctuation, or spelling. Andres Galaviz APRN.SUZANNE documented in this [facility]Prem[facility]04-[facility]-2023 Miscellaneous Notes* Telephone Encounter - [...] ER if symptoms worsen. documented in this encounterPrem[facility]03-30-[facility]23 History of Present illness Narrative* Shamika Goins PA-C - 10/08/2022 9:08 AM EDT Images from the original note were not included. This note was created using aitainment. Subjective Ghislaine Givens is a 32 year [...] tolerated it fine. Recommend she call her project developer today to be seen. Likely MRSA with [...] Z86.14 Shamika Goins PA-C documented in this encounterPremier [facility]02-04-[address] Villatoro [facility] August 15, 2022 11:44am Note Date/Time August 15, 2022 1 1:38am [facility] Medical Records Department [address] [place] [address] Instructions for Home/Discharge Instructions 08/15/22 1132 MR#: [id number] Acct: [id number] Name: GHISLAINE GIVENS Rep #:[id number] : 1990 32 From: Lexus Villatoro MD [...] be sent to your preferred pharmacy, [facility] ?Please continue all other home medications -Please [...] Urbina MD; Dr. Sophy Gibbons ~ Signed [facility] Work Phone: 1(527) 846-289102-03-[address] Villatoro [facility] August 14, 2022 8:50am Note Date/Time August 14, 2022 8 :50am [facility] Medical Records Department [address] [place] [address] Progress Note - Hospitalist 08/14/22 0846 MR#: [id number] Acct: [id number] Name: GHISLAINE GIVENS Rep #:[id number] : 1990 32 From: Lexus Villatoro MD PCP: Dr. Sophy Gibbons Status:ADM IN Location: [place] [id number] Subjective Subjective Irritable this morning, reports [...] 2524.0 1375 / 1375 Output Total 20 Balance 3037.5 / 3037.5 2124.0 / [...] Neut % (Auto) 65.7, Lymph % (Auto)22.3, [place] % (Auto) 8.6, Eos % (Auto) 0.6, [...] diabetes mellitus, hypertension, depression who presents to [facility] 08/12 with hyperglycemia andtachycardia. She was [...] documentation, 30Minutes Charges/Coding Visit Charges Inpatient E&M: 22310 Subs Hosp L2 08/14/22 0850 <Electronically signed by Lexus Villatoro MD> Cosigner Signature (if applicable): CC: ~ Signed [facility] Work Phone: 1(782) 791-139702-02-[address] Villatoro [facility] August 13, 2022 4:34pm Note Date/Time August 13, 2022 8 :40am [facility] Medical Records Department [address] [place] [address] Progress Note - Hospitalist 08/13/2232 MR#: [id number] Acct: [id number] Name: GHISLAINE GIVENS Rep #:[id number] : 1990 32 From: Lexus Villatoro MD PCP: Dr. Sophy Gibbons Status:ADM IN Location: [place] [address] Subjective Subjective Reports slight cough which she [...] % (Auto) 69.8, Lymph % (Auto) 20.1, [place] % (Auto) 8.7, Eos % (Auto) 0.1, [...] (MDRD) Non-Af 61, BUN/Creatinine Ratio 7.2 L, [place]280 H, Calcium 9.6, Magnesium 1.6, Total Bilirubin 0.50, AST 20, ALT 13, Alkaline Phosphatase 136 H, Troponin I High Sens 6, Total Protein 9.2 H, Albumin2.9 L, Globulin 6.3 H, Albumin/Globulin Ratio 0.5 L 08/12/22 16:22: Acetone Level NEGATIVE 08/12/22 16:22: Urine Color Yellow, Urine Clarity Clear, Urine pH 6.0, Ur Specific [place] 1.010, Urine Protein 100 H, Urine Glucose [...] 71.0 H, Lymph % (Auto) 17.3 L, [place] % (Auto) 9.7, Eos % (Auto) 0.2, Baso % (Auto) 0.5, Absolute Neuts (auto) 10.6 H, Absolute Lymphs (auto) 2.59, Nucleated RBC % 0 08/13/22 05:17: Sodium 134 L, Potassium 4.1, Chloride 102, Carbon Dioxide 22.0, Anion Gap 10, BUN 7, Creatinine 0.86, Estim Creat Clear Calc 89.54, Est GFR (MDRD) Af Amer 99, Est GFR (MDRD) Non-Af 82, BUN/Creatinine Ratio 8.1 L, Hltbfvb080 H, Calcium 8.6, Magnesium 2.2, Total Bilirubin [...] diabetes mellitus, hypertension, depression who presents to [facility] 08/12 with hyperglycemia andtachycardia. She was [...] documentation, 40Minutes Charges/Coding Visit Charges Inpatient E&M: 47354 Subs Hosp L2 08/13/22 1634 <Electronically signed by Lexus Villtaoro MD> Cosigner Signature (if applicable): CC: ~ Signed [facility] Work Phone: 1(212) 294-548002-02-[address] Christiansen [facility] August 12, 2022 10:42pm Note Date/Time August 12, 2022 3 :41pm [facility] Medical Records Department [address] [place] [address] Emergency Department Summary 08/12/22 MR#: [id number] Acct: [id number] Name: GHISLAINE GIVENS Rep #:[id number] : 1990 32 From: Alex Christiansen DO PCP: Dr. Sophy Gibbons Status:ADM IN Location: [address] History of Present Illness Chief Complaint: Hyperglycemia Narrative Narrative: 32-year-old female presenting with hyperglycemia. She states that [facility] and they were unable to check her blood sugar because they could not find a glucometer because she was [facility]cardic [facility] that [facility] [...] which is completely healing and doing well. [facility] Medical History (Updated 08/12/22 @ 21:20 [...] % (Auto) 69.8 Lymph % (Auto) 20.1 [place] % (Auto) 8.7 Eos % (Auto) 0.1 [...] Color Urine Clarity Urine pH Ur Specific [place] Urine Protein Urine Glucose (UA) Urine Ketones [...] (Auto) Neut % (Auto) Lymph % (Auto) [place] % (Auto) Eos % (Auto) Baso % [...] Clarity Clear Urine pH 6.0 Ur Specific [place] 1.010 Urine Protein 100 H Urine Glucose [...] (Auto) Neut % (Auto) Lymph % (Auto) 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 Multiple subcentimeter retroperitoneal nodes of uncertain etiology but stable since previous study most likely inflammatory Electronically Signed: Andres Ramos MD at 18:42 EST , Discharge Plan Disposition Disposition: Acute Care Hospital [facility] Discharge Date/Time: 08/12/22 22:03 What to do if you have Problems For any increased pain, shortness of breath, bleeding, nausea or vomiting, chestpain, or any unexpected problems, contact your Primary Care Provider. Call [facility] ([phone]) or report to the closest Emergency Room. Call 911 if necessary. 08/12/222241 <Electronically signed by Alex Christiansen DO> Cosigner Signature (if applicable): CC: Dr. Sophy Gibbons ~ Signed [facility] Work Phone: 1(772) 354-951402-01-2023 History and physical note Author Dr. Urbina [facility] August 12, 2022 9:20pm Note Date/Time August 12, 2022 8 :09pm [facility] Medical Records Department [address] [place] [address] H&P Exam - Hospitalist 08/12/222008 MR#: [id number] Acct: [id number] Name: GHISLAINE GIVENS Rep #:[id number] : 1990 32 From: Valencia Urbina MD PCP: Dr. Sophy Gibbons Status:ADM IN Location: [place] [id number] HPI - General General Date of Admission: 08/12/22 Date of Service: 08/12/22 Chief Complaint: Hyperglycemia, tachycardia HPI Narrative GHISLAINE GIVENS, is a 32 F who presents with the above. Patient has past medicalhistory of type II DM, recent discharge from the hospital on 06/29/22 for right diabetic foot infection status post right toe amputation. Patient was referred to the emergency room from [facility] for hyperglycemia and tachycardia. 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 [facility] Medical History (Updated 08/12/22 @ 21:20 [...] % (Auto) 69.8, Lymph % (Auto) 20.1, [place] % (Auto) 8.7, Eos % (Auto) 0.1, [...] (MDRD) Non-Af 61, BUN/Creatinine Ratio 7.2 L, Dgbadaf015 H, Calcium 9.6, Magnesium 1.6, Total Bilirubin 0.50, AST 20, ALT 13, Alkaline Phosphatase 136 H, Troponin I High Sens 6, Total Protein 9.2 H, Albumin2.9 L, Globulin 6.3 H, Albumin/Globulin Ratio 0.5 L 08/12/22 16:22: Acetone Level NEGATIVE 08/12/22 16:22: Urine Color Yellow, Urine Clarity Clear, Urine pH 6.0, Ur Specific [place] 1.010, Urine Protein 100 H, Urine Glucose [...] room physician. Charges/Coding Visit Charges Inpatient E&M: 30299 Init Hosp L2 08/12/222119 <Electronically signed by Valencia Urbina MD> Cosigner Signature (if applicable): CC: Dr. Valencia Urbina MD; Dr. Sophy Gibbons~ Signed [facility] Work Phone: [phone]) 194-270109-12-2022 History of Present illness Narrative* Luis Mayes, [...] 23, 2022 1:00 PM documented in this encounterPrem[facility]09-12-2022 History of Present illness Narrative* [...] CORONAVIRUS Sid Bravo MD documented in this encounterPrem[facility]07-25-2022 History of Present illness Narrative* Alyssa Jaime APRN.VOTING MACHINE REPAIRER - 02/02/2022 9:56 AM EDT Subjective The history is provided by the patient. No front end developer designer was used. HPI Ghislaine Givens is a [...] Wt 92.5 kg (204 lb) LMP 05/18/2021 OvF082% BMI 32.93 kg/m Social History Tobacco Use Smoking status: Current Every Day Smoker Packs/day: 0.50 Years: 3.00 Pack years: 1.50 Types: Cigarettes Smokeless tobacco: Never Used Substance Use Topics Alcohol use: Yes Comment: Seldom Drug use: No PAST MEDICAL HISTORY Diagnosis Date Bipolar 1 disorder (HCC) 2007 Depression Elevated BP 04/28/2013 Insomnia I have confirmed and edited as necessary, the [facility] Review of Systems Constitutional: Negative for [...] for primary care, unable to get in [place] until May. - CONSULT TO PULM/CRITICAL CARE [...] Level: 3 - Low documented in this encounterPrem[facility]07-25-2022 Instructions* Patient Instructions* Alyssa Jaime APRN.CNP - 02/02/2022 9:52 AM EDT Will set up follow for primary care and pulmonology To ER for worsening symptoms, increased pain, fevers, vomiting, decreased urine output, blood in her urine blood in her stools or dark tarry stools. documented in this encounterPrem[facility]11-04-2021 History of Present illness Narrative* [...] 15, 2021 9:57 AM documented in this encounterPrem[facility]10-18-2013 History of Past illness Narrative* [...] of this encounter (statuses as of 02/02/2022) [facility] History of Past illness Narrative* [...] of this encounter (statuses as of 03/23/2022) [facility] History of Past illness Narrative* [...] of this encounter (statuses as of 10/08/2022) [facility] History of Past illness Narrative* [...] of this encounter (statuses as of 10/12/2022) [facility] History of Past illness Narrative* [...] of this encounter (statuses as of 11/17/2022) [facility] History of Past illness Narrative* [...] of this encounter (statuses as of 02/04/2023) [facility] History of Past illness Narrative* [...] of this encounter (statuses as of 02/24/2023) [facility] History of Past illness Narrative* [...] of this encounter (statuses as of 03/02/2023) [facility] History of Past illness Narrative* [...] of this encounter (statuses as of 03/02/2023) [facility] History of Past illness Narrative* [...] of this encounter (statuses as of 03/09/2023) [facility] History of Past illness Narrative* [...] of this encounter (statuses as of 03/10/2023) [facility] History of Past illness Narrative* [...] of this encounter (statuses as of 03/12/2023) [facility] History of Past illness Narrative* [...] of this encounter (statuses as of 03/26/2023) [facility] History of Past illness Narrative* [...] of this encounter (statuses as of 04/16/2023) [facility] History of Past illness Narrative* [...] of this encounter (statuses as of 07/02/2023) [facility] CenterDis[facility] summary Author Rickey Gifford [facility] May 09, 2023 2:02pm Note Date/Time May 09, 2023 2 :02pm [facility] Medical Records Department [address] [place] [address] Discharge Summary 05/09/23 1354 MR#: [id number] Acct: [id number] Name: GHISLAINE GIVENS Rep #:[id number] : 1990 33 From: Rickey Gifford DO PCP: Care Physician,No Primary Status :ADM IN Location: [facility] [id number] Providers Date of Admission: 05/04/23 Primary Care Physician: No Primary Care Phys Consultations 05/04/23 19:30 Consult: Onc/Wound/tank truck mechanic Routine Comment: Reason For Visit: RIGHT FOOT [...] does have constipation. Also reviewing records through [facility]. Medications at Discharge Home Medications albuterol sulfate 90 mcg/actuation aerosol inhaler (Ventolin HFA) 1 inh inhalation Q4H SOB 04/06/22 insulin glargine 100 unit/mL (3 mL) subcutaneous pen (Lantus Solostar U-100 Insulin) 15 unit subcut BID diabetes 08/12/22 hyoscyamine sulfate 0.125 mg sublingual tablet (Levsin/SL) 0.125 mg PO TID PRN abdominal pain #10 tabs 01/07/23 bisacodyl 10 mg rectal suppository (Dulcolax (bisacodyl)) 10 mg GA DAILY 3 days #12 ea 01/15/23 acetaminophen [...] to review data from outside hospitals including [facility] as well as [facility] and [place], [place]. Patient has had CAT scans, EGDs, [...] Care Provider: Care Physician,No Primary Consulting Providers: Stephan Forrest Instructions Additional Instructions / Restrictions: Non-weight bearing Right leg. Follow-up with podiatry. Given extensive work-up for your abdominal pain. The work-up included CAT scans, ultrasound, EGDs, gastric emptying studies. These have all been unremarkable. It is my feeling as well as other providers that is [place] is thatthis is certainly exacerbated by some anxiety. Do [facility]. To be beneficial for [...] [Dulcolax (bisacodyl)] 10 mg suppository 10 mg GA DAILY 3 Days Qty: 12 0RF Rx [...] once a day Referrals / Follow Up: Stephan Forrest DPM [Med Staff - Active Staff] - (Follow-up with Dr. Forrest in private office 1 week postdischarge. Call office for appointment date and time.) Care Physician,No Primary [Primary Care Provider] - Amy Solorzano NP, NP-C [Non-Staff -Ordering Privileges] - Within 2 Weeks Disposition Disposition (needs filled in before D/C Order can be placed): Home, Self Care Charges/Coding Visit Charges Inpatient E&M: 21042 Disch Hosp >30min 05/09/23 1402 <Electronically signed by Rickey Gifford DO> Cosigner Signature (if applicable): CC: DPPrisca Forrest; PATRICE Solorzano; Dr. Rickey Gifford DO; No Primary Care Physician~ Signed [facility] Work Phone: Discharge summary Author Gale Lr [facility] Note Date/Time November 28, 2024 12:31 pm [facility] Medical Records Department [address] [place] [address] Discharge Summary 11/28/24 1203 MR#: [id number] Acct: [id number] Name: GHISLAINE GIVENS Rep #:[id number] : 1990 34 From: Gale Lr DO PCP: BROOKLYN Warren NP-C Statu s:ADM IN Location: [place] [address] Providers Date of Admission: 11/25/24 Date of [...] U-100 Insulin) 20 unit subcut BID diabetes 02/01/23 trazodone 300 mg tablet 200 mg PO [...] who presented to the emergency department at [facility] on 11/25/2024 with a chief complaint [...] (Auto) 49.8, Lymph % (Auto) 43.0 H, [place] % (Auto) 5.3, Eos % (Auto) 0.5, [...] as compared to prior study. Reading Location: [place] [address] D/C Instructions Discharge Diet: 1800 Calorie Control [...] tomorrow to set up appointment) Amy Solorzano, CT TECH-C [Primary Care Provider] - In 1 Week Disposition Disposition (needs filled in before D/C Order can be placed): Home, Self Care Charges/Coding Visit Charges Inpatient E&M: 89042 Disch Hosp >30min 11/28/24 1231 <Electronically signed by Gale Lr DO> Cosigner Signature (if applicable): CC: VSC CT TECH-C Amy Solorzano; Dr. Gale Lr DO~ Signed [facility] Work Phone: Discharge summary Author Frantz Coulter [facility] Note Date/Time January 01, 2025 1:06 pm [facility] Medical Records Department [address] [place] [address] Instructions for Home/Discharge Instructions 01/01/25 1259 MR#: [id number] Acct: [id number] Name: GHISLAINE GIVENS Rep #:[id number] : 1990 34 From: Frantz Coulter DO PCP: BROOKLYN Warren, CT TECH-C Statu s:ADM IN Discharge Instructions Diet Discharge [...] SA Referrals / Follow Up: Amy Solorzano, CT TECH-C [Primary Care Provider] - Within 2 Weeks Disposition Disposition (needs filled in before D/C Order can be placed): Home, Self Care 01/01/25 1306<Electronically signed by Frantz Coulter DO>Frantz Coulter DO CC: VSC CT TECH-C Amy Solorzano; Dr. Dewayne Grant DO ~ Signed [facility] Work Phone: Discharge summary Author Frantz Coulter [facility] Note Date/Time January 01, 2025 1:34 pm [facility] Medical Records Department [address] [place] [address] Discharge Summary 01/01/25 1306 MR#: [id number] Acct: [id number] Name: GHISLAINE GIVENS Rep #:[id number] : 1990 34 From: Frantz Coulter DO PCP: BROOKLYN Warren, PATRICE Statu s:ADM IN Location: ICU CVICU20 3-1 [...] was seen in the emergency room at [facility] with complaints of uncontrolled nausea and [...] % (Auto) 64.4, Lymph % (Auto) 27.7, [place] % (Auto) 6.4, Eos % (Auto) 0.3, [...] Clarity Cloudy, Urine pH 6.0, Ur Specific [place] 1.020, Urine Protein 30 H, Urine Glucose [...] Frantz Coulter Primary Care Provider: Amy Solorzano [facility] Consulting Providers: Dewayne Grant Discharge Orders/Prescriptions Prescriptions: [...] SA Referrals / Follow Up: Amy Solorzano, CT TECH-C [Primary Care Provider] - Within 2 Weeks Disposition Disposition (needs filled in before D/C Order can be placed): Home, Self Care Charges/Coding Visit Charges Inpatient E&M: 76476 Disch Hosp 01/01/25 1330 <Electronically signed by Frantz Coulter DO> Cosigner Signature (if applicable): CC: BROOKLYN CT TECH-C Amy Solorzano; Dr. Frantz Coulter DO~ Signed [facility] Work Phone: Evaluation noteNo assessment information available [facility] Work Phone: evaluation note* Diagnosis Onset Date Resolution Status Abdominal pain acute [facility] Work Phone: Evaluation note* Diagnosis Abnormal lung scan- Primary Nonspecific abnormal results of pulmonary system function study Nausea and vomiting, unspecified vomiting type documented in this encounter [facility]* Diagnosis Acute cough- Primary Mild intermittent asthmatic bronchitis without complication [facility] Diagnosis Onset Date Resolution Status Abdominal pain acute Encounter for pre-employment health screening examination acute [facility] Work Phone: evaluation note* Diagnosis Onset Date Resolution Status Abdominal pain acute Encounter for pre-employment health screening examination acute Cellulitis of foot, right ac [place] Diabetes acute Diabetic foot infection acut e Leukocytosis acute [facility] Work Phone: Evaluation note* Diagnosis Onset Date Resolution Status Abdominal pain acute Encounter for pre-employment health screening examination acute Cellulitis and abscess of right lower extremity acute Cellulitis of foot, right ac [place] Diabetes acute Diabetes mellitus with diabetic polyneuropathy acute Diabetic foot infection acut e Leukocytosis acute Osteomyelitis acute Type 2 diabetes mellitus with foot ulcer acute 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 [facility] Work Phone: Evaluation note* Diagnosis Onset Date Resolution Status Cellulitis and abscess of right lower extremity acute Cellulitis of foot, right ac [place] Diabetes acute Diabetes mellitus with diabetic polyneuropathy [...] acut e Lactic acidosis acute Osteomyelitis acute [facility] Work Phone: Evaluation note* Diagnosis Onset Date Resolution Status Cellulitis and abscess of right lower extremity acute Cellulitis of foot, right ac [place] Diabetes acute Diabetes mellitus with diabetic polyneuropathy acute Diabetic foot infection acut e Leukocytosis acute Osteomyelitis acute Type 2 diabetes mellitus with foot ulcer acute 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 Cellulitis and abscess of right lower extremity acute Cellulitis of foot, right ac [place] Diabetes mellitus with diabetic polyneuropathy acute Diabetic foot infection acut e Lactic acidosis acute Osteomyelitis acute Type 2 diabetes mellitus with foot ulcer acute [facility] Work Phone: Evaluation note* Diagnosis Onset Date Resolution Status Cellulitis and abscess of right lower extremity acute Cellulitis of foot, right ac [place] Diabetic foot infection acut e Osteomyelitis acute Lactic acidosis resolved Acute pyelonephritis acute [facility] Work Phone: Evaluation note* Diagnosis Toe infection- Primary Unspecified local infection of skin and subcutaneous tissue Facial infection Other specified infectious and parasitic diseases History of MRSA infection Personal history of Methicillin resistant Staphylococcus aureus [facility]* Diagnosis Facial infection- Primary Other specified infectious and parasitic diseases documented in this encounter [facility] note* Diagnosis Onset Date Resolution Status Acute hypokalemia acute Cannabis abuse acute Diabetes acute Elevated serum creatinine ac [place] Failure of outpatient treatment acute Intractable nausea and vomiting acute [facility] Work Phone: Evaluation note* Diagnosis Onset Date Resolution Status Acute hypokalemia acute Cannabis abuse acute Diabetes acute Intractable nausea and vomiting acute [facility] Work Phone: Evaluation note* Diagnosis Nausea and vomiting, unspecified vomiting type- Primary Syncope and collapse [facility]* Diagnosis Generalized abdominal pain- Primary Abdominal pain, generalized documented in this encounter [facility] note* Diagnosis Chronic nausea- Primary Nausea alone Chronic abdominal pain Abdominal pain, unspecified site documented in this encounter [facility] note* Diagnosis Vomiting, unspecified vomiting type, unspecified whether nausea present- Primary Chronic nausea Nausea alone documented in this encounter [facility] note* Diagnosis Chronic abdominal pain- Primary Abdominal pain, unspecified site documented in this encounter [facility] note* Diagnosis SOB (shortness of breath)- Primary Shortness of breath Abdominal pain, unspecified abdominal location documented in this encounter [facility] note* Diagnosis Onset Date Resolution Status Acute hypokalemia acute Cannabis abuse acute Diabetes acute Intractable nausea and vomiting acute Diabetes acute Diabetic foot infection acut e Leukocytosis acute [facility] Work Phone: Evaluation note* Diagnosis Onset [...] right foot with fat layer exposed chronic [facility] Work Phone: Evaluation note* Diagnosis Onset Date Resolution Status Diabetic foot infection reso lved Gas gangrene resolved Leukocytosis resolved Non-pressure chronic ulcer o f other part of right foot with fat layer exposed resolved Tightness of right heel cord resolved [facility] Work Phone: Evaluation note* Diagnosis Pain of right eye- Primary Pain in or around eye documented in this encounter [facility] note* Diagnosis Onset Date Resolution Status Diabetic [...] right foot with fat layer exposed resolved [facility] Work Phone: Evaluation note* Diagnosis Onset Date Resolution Status Acute painful diabetic polyneuropathy acute Other acute osteomyelitis, right ankle and foot acute Non-pressure chronic ulcer o f other part of right foot with fat layer exposed resolved [facility] Work Phone: Evaluation note* Diagnosis Nausea- Primary Nausea alone documented in this encounter [facility] note* Diagnosis Type II or unspecified type diabetes mellitus without mention of complication, uncontrolled- Primary Morbid obesity with BMI of 40.0-44.9, adult (HCC) Morbid obesity Elevated BP Elevated blood pressure reading without diagnosis of hypertension Acute cough Mild intermittent asthmatic bronchitis without complication [facility]* Diagnosis Type II or unspecified type diabetes mellitus without mention of complication, uncontrolled- Primary Morbid obesity with BMI of 40.0-44.9, adult (HCC) Morbid obesity Elevated BP Elevated blood pressure reading without diagnosis of hypertension Cough documented in [facility]* Diagnosis Type II or unspecified type diabetes mellitus without mention of complication, uncontrolled- Primary Morbid obesity with BMI of 40.0-44.9, adult (HCC) Morbid obesity Elevated BP Elevated blood pressure reading without diagnosis of hypertension Bronchopneumonia- Primary Bronchopneumonia, organism unspecified Mild intermittent asthma, uncomplicated Unspecified asthma documented in this encounter [facility] note* Diagnosis Type II or unspecified type diabetes mellitus without mention of complication, uncontrolled- Primary Morbid obesity with BMI of 40.0-44.9, adult (HCC) Morbid obesity Elevated BP Elevated blood pressure reading without diagnosis of hypertension Acute cough- Primary Acute cough documented in this encounter [facility] note* Diagnosis Type II or unspecified type diabetes mellitus without mention of complication, uncontrolled- Primary Morbid obesity with BMI of 40.0-44.9, adult (HCC) Morbid obesity Elevated BP Elevated blood pressure reading without diagnosis of hypertension Acute cough documented in this encounter [facility] note* Diagnosis Onset Date Resolution Status Admit Date Acute proctitis acute November 25, 2024 1:38pm Colitis acute November 25, 2024 1:38pm Fecal impaction acute November 25, 2024 1:38pm [facility] Work Phone: History and physical note Author Dr. Urbina [facility] August 12, 2022 9:20pm Note Date/Time August 12, 2022 8 :09pm [facility] Medical Records Department [address] [place] [address] H&P Exam - Hospitalist 08/12/222008 MR#: [id number] Acct: [id number] Name: GHISLAINE GIVENS Rep #:[id number] : 1990 32 From: Valencia Urbina MD PCP: Dr. Sophy Gibbons Status:ADM IN Location: [facility] [id number] HPI - General General Date of Admission: 08/12/22 Date of Service: 08/12/22 Chief Complaint: Hyperglycemia, tachycardia HPI Narrative GHISLAINE GIVENS, is a 32 F who presents with the above. Patient has past medicalhistory of type II DM, recent discharge from the hospital on 06/29/22 for right diabetic foot infection status post right toe amputation. Patient was referred to the emergency room from [facility] for hyperglycemia and tachycardia. 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 [facility] Medical History (Updated 08/12/22 @ 21:20 [...] % (Auto) 69.8, Lymph % (Auto) 20.1, [place] % (Auto) 8.7, Eos % (Auto) 0.1, [...] (MDRD) Non-Af 61, BUN/Creatinine Ratio 7.2 L, [id number] H, Calcium 9.6, Magnesium 1.6, Total Bilirubin 0.50, AST 20, ALT 13, Alkaline Phosphatase 136 H, Troponin I High Sens 6, Total Protein 9.2 H, Albumin2.9 L, Globulin 6.3 H, Albumin/Globulin Ratio 0.5 L 08/12/22 16:22: Acetone Level NEGATIVE 08/12/22 16:22: Urine Color Yellow, Urine Clarity Clear, Urine pH 6.0, Ur Specific [place] 1.010, Urine Protein 100 H, Urine Glucose [...] room physician. Charges/Coding Visit Charges Inpatient E&M: 14895 Init Hosp L2 08/12/222119 <Electronically signed by Valencia Urbina MD> Cosigner Signature (if applicable): CC: Dr. Valencia Urbina MD; Dr. Sophy Gibbons~ Signed [facility] Work Phone: History and physical note Author David Bain [facility] Note Date/Time December 30, 2024 1:09 pm [facility] Medical Records Department [address] [place] [address] H&P Exam - Hospitalist 12/30/24 1248 MR#: [id number] Acct: [id number] Name: GHISLAINE GIVENS Rep #:[id number] : 1990 34 From: David Gupta PCP: [place], CT TECH-C Statu s:ADM IN Location: ICU CVICU20 3-1 [...] DKA therefore admitted. Vitals in normal limit. [facility] Medical History Diabetes GERD (gastroesophageal reflux [...] (Auto) 70.7 H, Lymph % (Auto) 23.6, [place] % (Auto) 4.8, Eos % (Auto) 0.0, [...] Sl. Cloudy, Urine pH 5.0, Ur Specific [place] 1.025, Urine Protein 30 H, Urine Glucose [...] for 2 weeks. Weight loss counseling done. Resource Development Manager consult DVT prophylaxis, low risk: Early ambulation encouraged Living will/advanced directive/end of life care: Patient does not have living will or advanced directive. She does not have the [facility] power of banking attorney for health. After discussion of benefits/risks procedures involved with full code,DNR CC arrest and DNR CC, the patient opted for full code. Patient does want artificial life support including intubation, tube feed, ventilator and/chest compression, central venous catheter, vasopressor and DC shock if needed Total time spent in [id number] encounter in discussion of advanced directive 17 minutes. Charges/Coding Visit Charges Inpatient E&M: 54932 Init Hosp L3 Procedures Hospitalists Procedures: 49048 Advncd Care Plan 30 Min 12/30/24 1309 <Electronically signed by David Bain MD> Cosigner Signature (if applicable): CC: C CT TECH-C Amy Solorzano; Dr. David Bain MD~ Signed [facility] Work Phone: Hospital course Narrative No data available for this section [facility] Discharge instructions Additional Instructions Avoid marijuana use. Use the capsaicin cream every 6 hours as needed. Medication prescribed to use as needed. Continue oral fluids at home for hydration. Follow-up with your doctor.[facility] Work Phone: Hospital Discharge instructions Additional Instructions Please decrease your marijuana use. Please maintain hydration, use antinausea medicine as needed.[facility] Work Phone: Hospital Discharge instructions Additional Instructions Please fill the prescriptions that were prescribed to you from [facility] to help control your nausea and vomiting. Based on their CAT scan showing potential gallbladder or fallopian tube issues please have the ultrasounds obtained that were ordered on an outpatient basis this evening. If you have any further concerns [facility] Work [facility]: Hospital Discharge instructions Additional Instructions Your CT scan showed inflammation of the rectum consistent with acute proctitis. This can be secondary to infection or just inflammation but because of your diabetes and elevation of your white count take the antibiotic to resolve an infectious cause. If you have any further concerns please return for [facility] Work Phone: Hospital Discharge instructions Additional Instructions I would recommend gentle massage of the tear duct. Warm compresses as discussed. I would highly encourage ophthalmologic follow-up. Monitor for worsening symptoms return if needed.[facility] Work Phone: Hospital Discharge instructions Additional [...] letting me be involved in your surgical care![facility] Work Phone: Hospital Discharge instructions Additional Instructions Continue to avoid marijuana use. Use medications as prescribed for your symptoms. Continue oral fluids for hydration. Follow-up with your GI team.[facility] Work Phone: Reason for referral (narrative)* Diagnostic Procedure Only (Routine) - New Request Specialty Diagnoses / Procedures Referred By Ubaldo whitaker Referred To Contact MOLECULAR & FUNCTIONAL IMAGING Diagnoses Nausea Procedures NM GASTRIC EMPTYING SOLID GASTRIC EMPTYING STUDY Almita Kelly PA-C [address] [place] [address] Molecular & Functional Imaging [address] [place] [address] Referral ID Status Reason Start Date Expiration Date Visits Requested Visits Authorized [id number] New Request Auto-Generat ed Referral 03/02/2023 03/31/2024 1 1 [facility]ative)No reason for referral information availableWSalem [facility] Work Phone: Chief Complaint and Reason for [...] INFECTION DIABETIC FOOT INFECTION DIABETIC FOOT INFECTION [facility] Reason for Visit Abdominal pain Encounter [...] INFECTION DIABETIC FOOT INFECTION DIABETIC FOOT INFECTION [facility] Reason for Visit Abdominal pain [...] INFECTION DIABETIC FOOT INFECTION DIABETIC FOOT INFECTION [facility] CMP/CBC Reason for Visit Abdominal pain [...] INFECTION DIABETIC FOOT INFECTION DIABETIC FOOT INFECTION [facility] CMP/CBC DIABETIC FOOT ULCER Reason for [...] INFECTION DIABETIC FOOT INFECTION DIABETIC FOOT INFECTION [facility] CMP/CBC DIABETIC FOOT ULCER Reason for [...] INFECTION DIABETIC FOOT INFECTION DIABETIC FOOT INFECTION [facility] CMP/CBC DIABETIC FOOT ULCER DIAULCER DIAULCER [...] diabetes mellitus with foot ulcer Chief Complaint [facility] CMP/CBC DIABETIC FOOT ULCER DIAULCER DIAULCER DIAULCER DIAULCER DIAULCER ACUTE PYELONEPHRITIS ACUTE PYELONEPHRITIS Reason for Visit Cellulitis and absce ss of right lower extremity Cellulitis of foot, right Diabetic foot infection Osteomyelitis Lactic acidosis Acute pyelonephritis Chief Complaint [facility] CMP/CBC DIABETIC FOOT ULCER DIAULCER DIAULCER [...] 1:06pm n/v January 02, 2025 6:56 am Chief Complaint Admit Date PVD, BILAT [...] 1:06pm n/v January 02, 2025 6:56 am N/v January 04, 2025 5:55 am Advance Directives No Advanced Directives Records Found Advance Directive Response Recorded Date/ Time Living Will No October 24, 2021 8:30am Power of Game Operator No October 24 8:30am Advance Directive Response Recorded Date/ Time Living Will No October 29, 2021 9:39am Power of Game Operator No October 29 9:39am Advance Directive Response Recorded Date/ Time Living Will No November 16, 2021 8: 50am Power of Game Operator No November 16, 2021 8:50am Advance Directive Response Recorded Date/ Time Living Will No January 16, 2022 2 :46pm Power of Game Operator No January 16, 2022 2:46pm Advance Directive Response Recorded Date/ Time Living Will No January 22, 2022 9:41pm Power of Game Operator No January 22 9:41pm Advance Directive Response Recorded Date/ Time Living Will No January 23, 2022 4:29pm Power of Game Operator No January 23 4:29pm Advance Directive Response Recorded Date/ Time Living Will No January 26, 2022 12:34pm Power of Game Operator No January 26 12:34pm Advance Directive Response Recorded Date/ Time Living Will No February 01, 2022 1:07pm Power of Game Operator No February 01 1:07pm Advance Directive Response Recorded Date/ Time Living Will No April 05, 2022 11:53am Power of Game Operator No March 11:53am Advance Directive Response Recorded Date/ Time Living Will No April 06, 2022 12:58pm Power of Game Operator No March 12:58pm Advance Directive Response Recorded Date/ Time Living Will No April 06, 2022 4:07pm Power of Game Operator No March 4:07pm Advance Directive Response Recorded Date/ Time Living Will No June 24, 2 022 3:40pm Power of Game Operator No June 24, 2022 3:40pm Advance Directive Response Recorded Date/ Time Living Will No August 12 5:35pm Power of Game Operator No August 12, 2022 5:35pm Advance Directive Response Recorded Date/ Time Living Will No August 12 10:55pm Power of Game Operator No August 12, 2022 10:55pm Advance Directive Response Recorded Date/ Time Living Will No January 07, 2023 8:51am Power of Game Operator No January 07 8:51am Advance Directive Response Recorded Date/ Time Living Will No January 09, 2023 1 2:00pm Power of Game Operator No January 09, 2023 12:00pm Advance Directive Response Recorded Date/ Time Living Will No January 12, 2023 1 2:39am Power of Game Operator No January 12, 2023 12:39am Advance Directive Response Recorded Date/ Time Living Will No January 12, 2023 1 2:53pm Power of Game Operator No January 12, 2023 12:53pm Advance Directive Response Recorded Date/ Time Living Will No January 14, 2023 4 :21pm Power of Game Operator No January 14, 2023 4:21pm Advance Directive Response Recorded Date/ Time Living Will No January 25, 2023 11:41am Power of Game Operator No January 25 11:41am Advance Directive Response Recorded Date/ Time Living Will No February 08, 2023 12:35pm Power of Game Operator No February 08 12:35pm Latest Code Status on File Code Status Date Activated Date Inactivated Comments Full Code 02/18/2023 1:58 AM 02/20/2023 4:13 PM Question Answer Comments Full Code Order Discussed With: Patient Advance Directive Response Recorded Date/ Time Living Will No February 26 12:10am Power of Game Operator No February 26, 2 023 12:10am Latest [...] Will No March 06 8:38am Power of Game Operator No March 06, 2 023 8:38am Latest [...] Will No May 04 12:14pm Power of Game Operator No May 04, 2023 12:14pm Advance Directive Response Recorded Date/ Time Living Will No May 04 6:42pm Power of Game Operator No May 04, 2023 6:42pm Advance Directive Response Recorded Date/ Time Living Will No May 04 5:42pm Power of Game Operator No May 04, 2023 5:42pm Advance Directive Response Recorded Date/ Time Living Will No June 28, 023 9:27am Power of Game Operator No June 28, 2023 9:27am Advance Directive Response Recorded Date/ Time Living Will No July 02, 2 023 9:33am Power of Game Operator No July 02, 2023 9:33am Advance Directive Response Recorded Date/ Time Living Will No July 16 4 9:15am Power of Game Operator No July 16, 2 024 9:15am Advance Directive Response Recorded Date/ Time Living Will No July 16 4 10:15am Power of Game Operator No July 16, 2 024 10:15am Date [...] No June 25, 023 9:33am Power of Game Operator No June 25, 2023 9:33am Advance Directive Response Recorded Date/ Time Living Will No June 26, 023 12:21pm Power of Game Operator No June 26, 2023 12:21pm Advance Directive Response Recorded Date/ Time Living Will No June 27, 023 5:53am Power of Game Operator No June 27, 2023 5:53am Advance Directive Response Recorded Date/ Time Do you have a Healthcare Power of Game Operator? No November 25, 2024 8:56am Advance Directive Response Recorded Date/ Time Do you have a Healthcare Power of Game Operator? No November 25, 2024 2:54pm Advance Directive Response Recorded Date/ Time Do you have a Healthcare Power of Game Operator? No November 25, 2024 2:54pm Do you have a Healthcare Power of Game Operator? No December 30, 2024 10:23am Advance Directive Response Recorded Date/ Time Do you have a Healthcare Power of Game Operator? No November 25, 2024 2:54pm Do you have a Healthcare Power of Game Operator? No December 30, 2024 1:37pm Advance Directive Response Recorded Date/ Time Do you have a Healthcare Power of Game Operator? No November 25, 2024 2:54pm Do you have a Healthcare Power of Game Operator? No December 30, 2024 1:37pm Do you have a Healthcare Power of Game Operator? No December 31, 2024 7:36pm Advance Directive Response Recorded Date/ Time Do you have a Healthcare Power of Game Operator? No November 25, 2024 2:54pm Do you have a Healthcare Power of Game Operator? No December 30, 2024 1:37pm Do you have a Healthcare Power of Game Operator? No December 31, 2024 11:46pm Advance Directive Response Recorded Date/ Time Do you have a Healthcare Power of Game Operator? No November 25, 2024 2:54pm Do you have a Healthcare Power of Game Operator? No December 30, 2024 1:37pm Do you have a Healthcare Power of Game Operator? No December 31, 2024 11:46pm Do you have a Healthcare Power of Game Operator? No January 02, 2025 6:59am Advance Directive Response Recorded Date/ Time Do you have a Healthcare Power of Game Operator? No May 17th, 2025 2:54pm Do you have a Healthcare Power of Game Operator? No December 30, 2024 1:37pm Do you have a Healthcare Power of Game Operator? No December 31, 2024 11:46pm Do you have a Healthcare Power of Game Operator? No January 04, 2025 5:55am Do you have a Healthcare Power of Game Operator? No January 02, 2025 6:59am Family History [...] scan Procedures CONSULT TO PULM/CRITICAL CARE OFFICE/OUTPATIENT [facility] 60-74 MINUTES Alyssa Jaime APRN.VOTING MACHINE REPAIRER [address] [place] [address] Referral ID Status Reason Start Date Expiration Date Visits Requested Visits Authorized [id number] Authorized PCP Requested Referral 02/02/2022 02/02/2023 1 1 Specialty Diagnoses / Procedures Referred By Contac t Referred To Contact Pain Management Diagnoses Chronic abdominal pain Procedures CONSULT TO PAIN MGT OFFICE/OUTPATIENT [facility] 60-74 MINUTES Pilar Magdaleno APRN.VOTING MACHINE REPAIRER [address] [place] [address] Referral ID Status Reason Start Date Expiration Date Visits Requested Visits Authorized [id number] Authorized PCP Requested Referral 02/23/2023 02/23/2024 1 1 Specialty Diagnoses / Procedures Referred By Contac t Referred To Contact Gastroenterology Diagnoses Chronic nausea Procedures CONSULT TO GASTROENTEROLOGY OFFICE/OUTPATIENT [facility] 60-74 MINUTES Pilar Magdaleno APRN.VOTING MACHINE REPAIRER [address] [place] [address] Referral ID Status Reason Start Date Expiration Date Visits Requested Visits Authorized [id number] Authorized PCP Requested Referral 02/23/2023 02/23/2024 1 1 Referral ID Status Reason Start Date Expiration Date Visits Requested Visits Authorized [id number] Authorized PCP Requested Referral 03/12/2023 03/11/2024 1 [...] or prosecute any alcohol or drug abuse patient.[facility] the event this information is protected by the Federal Confidentiality of Alcohol and Drug Abuse Patient Records regulations: The Federal rules restrict any use of the information to criminally investigate or prosecute any alcohol or drug abuse patient.[facility] CenterIn the event this information is protected by the Federal Confidentiality of Alcohol and Drug Abuse Patient Records regulations: The Federal rules restrict any use of the information to criminally investigate or prosecute any alcohol or drug abuse patient.[facility] Center[facility] the event this information is protected by the Federal Confidentiality of Alcohol and Drug Abuse Patient Records regulations: The Federal rules restrict any use of the information to criminally investigate or prosecute any alcohol or drug abuse patient.[facility] CenterIn the event this information is protected by the Federal Confidentiality of Alcohol and Drug Abuse Patient Records regulations: The Federal rules restrict any use of the information to criminally investigate or prosecute any alcohol or drug abuse patient.[facility] CenterIn the event this information is protected by the Federal Confidentiality of Alcohol and Drug Abuse Patient Records regulations: The Federal rules restrict any use of the information to criminally investigate or prosecute any alcohol or drug abuse patient.[facility] CenterIn the event this information is protected by the Federal Confidentiality of Alcohol and Drug Abuse Patient Records regulations: The Federal rules restrict any use of the information to criminally investigate or prosecute any alcohol or drug abuse patient.[facility] CenterIn the event this information is protected by the Federal Confidentiality of Alcohol and Drug Abuse Patient Records regulations: The Federal rules restrict any use of the information to criminally investigate or prosecute any alcohol or drug abuse patient.[facility] CenterIn the event this information is protected by the Federal Confidentiality of Alcohol and Drug Abuse Patient Records regulations: The Federal rules restrict any use of the information to criminally investigate or prosecute any alcohol or drug abuse patient.[facility] CenterIn the event this information is protected by the Federal Confidentiality of Alcohol and Drug Abuse Patient Records regulations: The Federal rules restrict any use of the information to criminally investigate or prosecute any alcohol or drug abuse patient.[facility] CenterIn the event this information is protected by the Federal Confidentiality of Alcohol and Drug Abuse Patient Records regulations: The Federal rules restrict any use of the information to criminally investigate or prosecute any alcohol or drug abuse patient.[facility] CenterIn the event this information is protected by the Federal Confidentiality of Alcohol and Drug Abuse Patient Records regulations: The Federal rules restrict any use of the information to criminally investigate or prosecute any alcohol or drug abuse patient.[facility] CenterIn the event this information is protected by the Federal Confidentiality of Alcohol and Drug Abuse Patient Records regulations: The Federal rules restrict any use of the information to criminally investigate or prosecute any alcohol or drug abuse patient.[facility] CenterIn the event this information is protected by the Federal Confidentiality of Alcohol and Drug Abuse Patient Records regulations: The Federal rules restrict any use of the information to criminally investigate or prosecute any alcohol or drug abuse patient.[facility] CenterIn the event this information is protected by the Federal Confidentiality of Alcohol and Drug Abuse Patient Records regulations: The Federal rules restrict any use of the information to criminally investigate or prosecute any alcohol or drug abuse patient.[facility] CenterIn the event this information is protected by the Federal Confidentiality of Alcohol and Drug Abuse Patient Records regulations: The Federal rules restrict any use of the information to criminally investigate or prosecute any alcohol or drug abuse patient.[facility] CenterIn the event this information is protected by the Federal Confidentiality of Alcohol and Drug Abuse Patient Records regulations: The Federal rules restrict any use of the information to criminally investigate or prosecute any alcohol or drug abuse patient.[facility] CenterIn the event this information is protected by the Federal Confidentiality of Alcohol and Drug Abuse Patient Records regulations: The Federal rules restrict any use of the information to criminally investigate or prosecute any alcohol or drug abuse patient.[facility] CenterIn the event this information is protected by the Federal Confidentiality of Alcohol and Drug Abuse Patient Records regulations: The Federal rules restrict any use of the information to criminally investigate or prosecute any alcohol or drug abuse patient.[facility] Center[facility] the event this information is protected by the Federal Confidentiality of Alcohol and Drug Abuse Patient Records regulations: The Federal rules restrict any use of the information to criminally investigate or prosecute any alcohol or drug abuse patient.[facility] Center[facility] the event this information is protected by the Federal Confidentiality of Alcohol and Drug Abuse Patient Records regulations: The Federal rules restrict any use of the information to criminally investigate or prosecute any alcohol or drug abuse patient.[facility] Reason for Visit (unrecogniz ed [...] NEW HIGH MDM 60-74 MINUTES Pilar Magdaleno APRN.[employer] [address] [place] [address] Referral ID Status Reason Start Date Expiration Date V isits Requested Visits Authorized [id number] Closed PCP Requested Referral 02/23/2023 02/23/2024 1 [...] Active Dr. Andres Matias DPM Attending Provider, Refergladys g Provider Active Team Status: Inactive Member [...] Dr. Lexus Villatoro MD Attending Provider Active Baker Second Relationship Specialty Start Date End Date Amy Solorzano, MARIA G [address] [place], [place] [id number] PCP - General Family Medicine 11/17/22 Team Status: Active Member Role Status Dates Dr. Esther Cooney MD Family Provider Active [facility] Primary Care Provider A ctive Team Status: Inactive Member Role Status Dates Dr. Sophy Gibbons Primary Care Provider Active Dr. Tim Vidal DO Attending Provider, Emergency P tala Active Team Status: Active Member Role Status Dates [facility] Primary Care Provider A ctive Amy Solorzano CT TECH, CT TECH-C Attending Provider, Referrin g Provider Active Team Status: Inactive Member Role Status Dates [facility] Primary Care Provider A ctive Dr. Poli Barfield DO Emergency Provider Active Team Status: Inactive Member Role Status Dates [facility] Primary Care Provider A ctive Dr. Deann Guerrero MD Emergency Provider Active Team Status: Inactive Member Role Status Dates [facility] Primary Care Provider A ctive Dr. Perico Norman DO Emergency Provider Active Team Status: Inactive Member Role Status Dates [facility] Primary Care Provider A ctive Dr. Fabricio Guevara MD Emergency Provider Active Team Status: Active Member Role Status Dates [facility] Primary Care Provider A ctive Dr. Willie Dhillon MD Emergency Provider Active Dr. Lexus Villatoro MD Admit Provider, At tending Provider, Other Provider Active Team Status: Inactive Member Role Status Dates [facility] Primary Care Provider A ctive Dr. Willie Dhillon MD Emergency Provider Active Dr. Lexus Villatoro MD Admit Provider, Attending Provid er Active Team Status: Inactive Member Role Status Dates [facility] Primary Care Provider A ctive Dr. Poli Barfield DO Attending Provider, Emergency Provide r Active Team Status: Inactive Member Role Status Dates [facility] Primary Care Provider A ctive Dr. Deann Guerrero MD Attending Provider, Emergency Provider Active Team Status: Inactive Member Role Status Dates [facility] Primary Care Provider A ctive Amy Solorzano CT TECH, CT TECH-C Attending Provider, Referrin g Provider Active Team Status: Inactive Member Role Status Dates [facility] Primary Care Provider A ctive Dr. Perico Norman DO Attending Provider, Emergency Pr ovider Active Team Status: Inactive Member Role Status Dates [facility] Primary Care Provider A ctive Dr. Fabricio Guevara MD Attending Provider, Emergency Pro vider Active Baker Second Relationship Specialty Start Date End Date Amy Solorzano [address] [place] [id number] PCP - General 01/24/23 Baker Second Relationship Specialty Start Date End Date Amy Solorzano NP [address] [place], [place] [id number] PCP - General Family Medicine 11/17/22 Team Status: Inactive Member Role Status Dates [facility] Primary Care Provider A ctive Dr. Javy Doss , DO Emergency Provider Active Baker Second Relationship Specialty Start Date End Date Amy Solorzano NP [address] [place] [address] PCP - General Family Medicine 11/17/22 Team Status: Inactive Member Role Status Dates [facility] Primary Care Provider A ctive Dr. Javy Doss , DO Attending Provider, Emergency Pro vider Active Team Status: Inactive Member Role Status Dates [facility] Primary Care Provider A ctive Dr. Tim Vidal , DO Emergency Provider Active Baker Second Relationship Specialty Start Date End Date Amy Solorzano NP [address] [place] [address] PCP - General Family Medicine 11/17/22 Baker Second Relationship Specialty Start Date End Date Amy Solorzano NP [address] [place] [address] PCP - General Family Medicine 11/17/22 Team Status: Inactive Member Role Status Dates [facility] Primary Care Provider A ctive Dr. Tim Vidal , DO Attending Provider, Emergency P rovider Active Team Status: Inactive Member Role Status Dates [facility] Primary Care Provider A ctive Dr. Rickey Shepard , DO Emergency Provider Active Baker Second Relationship Specialty Start Date End Date Amy Solorzano NP [address] [place] [address] PCP - General Family Medicine 11/17/22 Baker Second Relationship Specialty Start Date End Date Amy Solorzano NP [address] [place] [address] PCP - General Family Medicine 11/17/22 Baker Second Relationship Specialty Start Date End Date Amy Solorzano NP [address] [place] [address] PCP - General Family Medicine 11/17/22 Baker Second Relationship Specialty Start Date End Date Amy Solorzano NP [address] [facility] [place] [address] PCP - General Family Medicine 11/17/22 Team [...] Javy Doss DO Emergency Provider Active Dr. Stephan Forrest DPM Attending Provider Active Team Status: Inactive Member Role Status [facility] Primary Care Provider A ctive Dr. Rickey Shepard DO Attending Provider, Emergency P ropatricia Active Team Status: Inactive Member Role Status Dates Dr. Poli Barfield DO Attending Provider, Emergency Provide r Active No Primary Care Physician Primary Care Provider Active Team Status: Active Member Role Status Dates No Primary Care Physician Primary Care Provider Active Dr. Javy Doss DO Emergency Provider Active Dr. Stephan Forrest DPM Other Provider Active Dr. Rickey Gifford DO Admit Provider, At tending Provider, Other Provider Active Team Status: Active Member Role Status Dates No Primary Care Physician Primary Care Provider Active Dr. Javy Doss DO Emergency Provider Active Dr. Stephan Forrest DPM Other Provider Active Dr. Rickey Gifford DO Admit Provider, At tending Provider, Referring Provider, Other Provider Active Team Status: Inactive Member Role Status Dates No Primary Care Physician Primary Care Provider Active Dr. Javy Doss DO Emergency Provider Active Dr. Stephan Forrest DPM Other Provider Active Dr. Rickey Gifford DO Admit Provider, At tending Provider, Referring Provider Active Team Status: Inactive Member Role Status Dates No Primary Care Physician Primary Care Provider Active Dr. Stephan Forrest DPM Attending Provider Active Team Status: [...] Dr. Alex Christiansen DO Emergency Provider Active Baker Second Relationship Specialty Start Date End Date Amy Solorzano NP [address] [place] [phone] PCP - General Family Medicine 11/17/22 Team [...] Dr. Tesfaye Mitchell DO Emergency Provider Active [facility] Primary Care Provider A ctive Team Status: Inactive Member Role Status Dates Dr. Stephan Forrest DPM Attending Provider, Referring Provider Active [facility] Primary Care Provider A ctive Team Status: Inactive Member Role Status Dates Dr. Sophy Gibbons Primary Care Provider Active Drew Hinson MD Attending Provider, Emergency Provid er Active Team Status: Inactive Member Role Status Dates Dr. Tesfaye Mitchell DO Attending Provider, Emergency P rovider Active [facility] Primary Care Provider A ctive Team Status: Inactive Member Role Status Dates [facility] Primary Care Provider A ctive Dr. Willie Dhillon MD Attending Provider, Emergency Provider Active Team Status: Inactive Member Role Status Dates [facility] Primary Care Provider A ctive Dr. Stephan Forrest DPM Attending Provider, Referring Provider Active Baker Second Relationship Specialty Start Date End Date Amy Solorzano CT TECH [address] [place] [phone] PCP - General Family Medicine 11/17/22 Baker Second Relationship Specialty Start Date End Date Amy Solorzano, CT TECH [address] [place] [phone] PCP - General Family Medicine 11/17/22 Baker Second Relationship Specialty Start Date End Date Amy Solorzano, CT TECH [address] [place] [phone] PCP - General Family Medicine 11/17/22 Baker Second Relationship Specialty Start Date End Date Amy Solorzano, CT TECH [address] [place] [phone] PCP - General Family Medicine 11/17/22 Team Status: Active Member Role Status Dates Amy Solorzano VSC, CT TECH-C Primary Care Provider Activ e Team Status: Inactive Member Role Status Dates Amy Solorzano VSC, CT TECH-C Primary Care Provider Activ e Start: October 17, 2024 End: October 17, 2024 Amy Solorzano VSC, CT TECH-C Attending Provider Active Start: October 17, 2024 End: October 17, 2024 Team Status: Inactive Member Role Status Dates Amy Solorzano VSC, CT TECH-C Primary Care Provider Activ e Start: October 25, 2024 End: October 25, 2024 Dr. Stephan Forrest DPM Attending Provider Active Start: October 25, 2024 End: October 25, 2024 Dr. Stephan Forrest DPM Referring Provider Active Start: October 25, 2024 End: October 25, 2024 Team Status: Active Member Role Status Dates Amy BARAHONA, CT TECH-C Primary Care Provider Activ e Start: November 25, 2024 Drew Hinson MD Emergency Provider Active Star t: November 25, 2024 Dr. Brenda Rao MD Admit Provider Active St art: November 25, 2024 Dr. Brenda Rao MD Attending Provider Active Start: November 25, 2024 Team Status: Inactive Member Role Status Dates Amy BARAHONA, CT TECH-C Primary Care Provider Activ e Start: November [...] Active Member Role Status Dates Amy BARAHONA, CT TECH-C Primary Care Provider Activ e Start: November [...] Active Member Role Status Dates Amy BARAHONA, CT TECH-C Primary Care Provider Activ e Start: November [...] Active Member Role Status Dates Amy BARAHONA, CT TECH-C Primary Care Provider Activ e Start: November [...] Active Member Role Status Dates Amy BARAHONA, CT TECH-C Primary Care Provider Activ e Start: November [...] Active Member Role Status Dates Amy BARAHONA, CT TECH-C Primary Care Provider Activ e Start: November [...] Provider Active Start : November 27, 2024 MIGUEL A Elder-C Attending Provider Active Start: November 27, 2024 Team Status: Active Member Role Status Dates Amy Brown VSC, CT TECH-C Primary Care Provider Activ e Start: November [...] Active Member Role Status Dates Amy BARAHONA, CT TECH-C Primary Care Provider Activ e Start: November [...] Provider Active Start: October 25, 2024 Dr. Stephan Forrest DPM Referring Provider Active Start: October 25, 2024 Team Status: Active Member Role Status Dates Amy BARAHONA, CT TECH-C Primary Care Provider Activ e Start: November [...] Status: Inactive Member Role Status Dates Amy Brown VSC, CT TECH-C Primary Care Provider Activ e Start: December 13, 2024 End: December 13, 2024 Amy EDWARDSC, CT TECH-C Referring Provider Active Start: December 13, 2024 End: December 13, 2024 MIGUEL A South Attending Provider Active Start: December 13, 2024 End: December 13, 2024 Team Status: Inactive Member Role Status Dates Amy EDWARDSC, CT TECH-C Primary Care Provider Activ e Start: December 13, 2024 End: December 13, 2024 MIGUEL A South Attending Provider Active Start: December 13, 2024 End: December 13, 2024 MIGUEL A South Referring Provider Active Start: December 13, 2024 End: December 13, 2024 Team Status: Inactive Member Role Status Dates Amy EDWARDSC, CT TECH-C Primary Care Provider Activ e Start: December 25, 2024 End: December 25, 2024 MIGUEL A South Attending Provider Active Start: December 25, 2024 End: December 25, 2024 Kalee Peter Referring Provider Active Start: December 25, 2024 End: December 25, 2024 Team Status: Active Member Role Status Dates Amy EDWARDSC, CT TECH-C Primary Care Provider Activ e Start: December 30, 2024 Dr. Poli Barfield DO Emergency Provider Active Start : December 30, 2024 Dr. David Bain MD Admit Provider Active Sta rt: December 30, 2024 Dr. David Bain MD Attending Provider Active Start: December 30, 2024 Team Status: Inactive Member Role Status Dates Amy EDWARDSC, CT TECH-C Primary Care Provider Activ e Start: December [...] Active Member Role Status Dates Amy EDWARDSC, CT TECH-C Primary Care Provider Activ e Start: December [...] Status: Active Member Role Status Dates Amy EDWARDSSraa, CT TECH-C Primary Care Provider Activ e Start: December [...] Active Member Role Status Dates Amy EDWARDSC, CT TECH-C Primary Care Provider Activ e Start: December 31, 2024 Dr. Poli Barfield , DO Emergency Provider Active Start : December 31, 2024 Dr. Dewayne Grant , DO Admit Provider Active Start: December 31, 2024 Dr. Dewayne Grant , DO Attending Provider Active Start: December 31, 2024 Team Status: Inactive Member Role Status Dates Amy EDWARDSC, CT TECH-C Primary Care Provider Activ e Start: December 31, 2024 End: January 01, 2025 Dr. Poli Barfield , DO Emergency Provider Active Start : December 31, 2024 End: January 01, 2025 Dr. Dewayne Grant , DO Admit Provider Active Start: December 31, 2024 End: January 01, 2025 Dr. Dewayne Grant , DO Other Provider Active Start: December 31, 2024 End: January 01, 2025 Dr. Frantz Coulter , Attending Provider Active Start: December 31, 2024 End: January 01, 2025 Team Status: Active Member Role Status Dates Amy Solorzano [place], CT TECH-C Primary Care Provider Activ e Start: January 01, 2025 Dr. Poli Barfield , Emergency Provider Active Start : January 01, 2025 Dr. Dewayne Grant , DO Admit Provider Active Start: January 01, 2025 Dr. Dewayne Grant , Other Provider Active Start: January 01, 2025 Dr. Frantz Coulter , Attending Provider Active Start: January 01, 2025 Dr. Frantz Coulter , Other Provider Active S tart: January 01, 2025 Team Status: Inactive Member Role Status Dates Amy BARAHONA, CT TECH-C Primary Care Provider Activ e Start: January 02, 2025 End: January 02, 2025 Dr. Poli Barfield , Emergency Provider Active Start : January 02, 2025 End: January 02, 2025 Team Status: Inactive Member Role Status Dates Amy BARAHONA, CT TECH-C Primary Care Provider Activ e Start: January 04, 2025 End: January 04, 2025 Dr. Perico Norman , DO Emergency Provider Active Start: January 04, 2025 End: January 04, 2025 INFORMATION SOURCE (unrecogn ized section and content) DATE CREATED AUTHOR 01/24/2023 [facility] DATE CREATED AUTHOR AUTHOR'S ORGANIZ ATION 02/18/2023 [facility] DATE CREATED AUTHOR AUTHOR'S ORGANIZ ATION 04/19/2023 [facility] ([place]) DATE CREATED AUTHOR AUTHOR'S ORGANIZ ATION 02/02/2024 [facility] DATE CREATED AUTHOR AUTHOR'S ORGANIZ ATION 07/05/2024 [facility] DATE CREATED AUTHOR AUTHOR'S ORGANIZ ATION 01/07/2025 [facility] Scheduled Active and Recently Administ ered Medications [...] BE BASED ON THE PRIMARY CLINICAL RECORDS. [employer] [facility]. provides no warranty or guarantee of the accuracy or completeness of information in this document.
[2025-01-07 14:54] LABS: Color, Urine Yellow (Yellow); Glucose, Dipstick Normal (Normal); Ketone-Dipstick Negative (Negative); Leukocyte Esterase-Dipstick 25 /ul (Negative); Nitrite-Dipstick Negative (Negative); Occult Blood-Urine 250 /ul (Negative); Protein-Dipstick 30 mg/dl (Negative); Specific Gravity, Urine 1.015 (1.002-1.030); Urine Bilirubin Dipstick Negative (Negative); Urine Clarity Sl. Cloudy (Clear); Urine Urobilinogen Normal (Normal)
[2025-01-07 15:03] LABS: Red Blood Cells-Urine 0-5 SEEN /hpf (0-5); Squamous Epithelial Cells - UA 0-5 SEEN /hpf (5-10); White Blood Cells 5-10 SEEN /hpf (0-5)
[2025-01-07 15:04] LABS: Bacteria 2+ /hpf (None Seen); Mucous, Urine 1+ /hpf (<or=2+)
[2025-01-07] MEDS: Ketorolac 15 MG/ML Vial IV ×2 (15:22→20:58)
--- NOTE | 2025-01-07 15:48 | ED.RN ---
Addendum entered by Latia Mustafa 01/07/25 15:53: Correction, Sera Gunter (not N.P.) Original Note: Notified Rosetta Garsia N.PMarine, bg 68. Instructed to give pt more juice. OJ provided.
[2025-01-07 16:04] LABS: Bedside Glucose 97 mg/dL (74-106)
[2025-01-07 16:04] LABS: Bedside Glucose 68 mg/dL (74-106)
[2025-01-07 16:04] LABS: Bedside Glucose 111 mg/dL (74-106)
--- OUTSIDE RECORDS SUMMARY | 2025-01-07 16:21 | XMS RPT_ITS | CCD ---
Author Organization [facility] Care Team Providers Care Computer Consultant Name Role Phone Care Physician, No Primary Primary Care Provider Unavailable Care Physician, No Primary Referring Provider Un available Friend, Dr. Riddle Attending Provider Unavailable Primary Care Provider MIGUEL A Kraus Attending Provider Dr. Fabricio Guevara Emergency Provider Dr. Rickey Gifford Attending Provider Dr. Rickey Gifford Admit Provider Dr. Rickey Gifford Other Provider Dr. Andres Matias Other Provider Dr. Marc Ncik Attending Provider Dr. Marc Nick Other Provider Dr. Charles Green Other Provider [phone] Care Physician, No Primary Primary Care Provider [...] Other Provider Dr. Alex Christiansen Emergency Provider Trishfreevillejuventino, Dr. [place] Admit Provider Trishfreevillejuventino, Dr. [place] Attending Provider Carlitos, Dr. [place] Other Provider Dr. Lexus Villatoro Attending Provider Dr. Lexus Villatoro Other Provider Unavailable Primary Care Provider Unavailarpita e Rashad TRADE SPECIALIST, Amy Primary Care Provider [facility] Pro vider Dr. Willie Dhillon Emergency Provider Dr. Lexus Villatoro Admit Provider Dr. Lexus Villatoro Attending Provider Dr. Lexus Villatoro Other Provider ABDIRIZAK RAMIREZ Attending Unavailable RASHAD AMY Primary Care Unavailable Rashad Amy Primary Care Provider RASHAD BURIAL VAULT SETTER-AUTO CLUB SAFETY PROGRAM COORDINATOR, [facility] Primary Care Physicia n DEWAYNE CHACON DO Attending Unavailable DEWAYNE CHACON DO Primary Care Unavailable DEWAYNE CHACON DO Admitting Unavailable ASUNCIONGERALDINE Admitting Unavailable ASUNCIONGERALDINE PENN Attending Unavailable ASUNCIONGERALDINE MAURICE Primary Care Unavailable [facility] Primary Care Pro vider Dr. Willie Dhillon Emergency Provider Dr. Lexus Villatoro Admit Provider Dr. Lexus Villatoro Attending Provider Dr. Lexus Villatoro Other Provider BUCKYTed ESSIE Attending Unavailable RICARDO GERALDINE Referring Unavailable RASHAD BURIAL VAULT SETTER-AUTO CLUB SAFETY PROGRAM COORDINATOR, AMY Primary Care Unava fanny WEBB BURIAL VAULT SETTER-AUTO CLUB SAFETY PROGRAM COORDINATOR, MARTI Matthews Attending HELENA Villa Admitting Unavailable [...] Provider Dr. Rickey Gifford Other Provider Rashad TRADE SPECIALIST, Amy Primary Care Provider Care Physician, No Primary Primary Care Provider Unavailable Dr. Javy Doss Emergency Provider Dr. Rickey Gifford Attending Provider Dr. Abdirizak Forrest Other Provider Dr. Rickey Gifford Admit Provider Dr. Rickey Gifford Other Provider Rashad TRADE SPECIALIST, [facility] Primary Care Provider SRIRAM KAMKATIA Admitting Unavailable KELLEY LOPEZ Attending Unavailable AMY SOLORZANO Primary Care Unavailable CAYETANO TAI Unavailable Unavailable Primary Care Provider Unavailabl e RASHAD, AMY Primary Care Unavailable IRAIS HANNA Referring Unavailable RASHAD, AMY Primary Care Unavailable RASHAD, AMY Primary Care Unavailable Rashad TRADE SPECIALIST-C, Amy Primary Care Provider Rashad TRADE SPECIALIST-C, Amy Attending Provider Lon DPM, Dr. Rothman [...] Provider Clare Loo PA-C Attending Provider Rashad TRADE SPECIALIST-C, Amy Referring Provider Nayana Grigsby Attending Provider Nayana Grigsby Referring Provider Kalee Peter Referring Provider Unavailable Carolyne KIM, Dr. Ashton Emergency Provider Odell BOYCE, Dr. Hernandez Admit Provider Odell BOYCE, Dr. Hernandez Attending Provider Odell BOYCE, Dr. Hernandez Other Provider Rashad TRADE SPECIALIST-C, Amy Primary Care Provider Rashad TRADE SPECIALIST-C, Amy Attending Provider Lon DPM, Dr. Rothman [...] Provider Clare Loo PA-C Attending Provider Rashad TRADE SPECIALIST-C, Amy Referring Provider Nayana Grigsby Attending Provider Nayana Grigsby Referring Provider Kalee Peter Referring Provider Unavailable Carolyne KIM, Dr. Ashton Emergency Provider Odell BOYCE, Dr. Hernandez Admit Provider Odell BOYCE, Dr. Hernandez Attending Provider Odell BOYCE, Dr. Hernandez Other Provider de Omega KIM, Dr. Jackson Admit Provider Unavail able de Omega DO, Dr. Jackson Attending Provider Unav ailable de Omega KIM, Dr. Jackson Other Provider Unavail able Yfn KIM, Dr. Pires Attending Provider Yfn KIM, Dr. Pires Other Provider Emerson KIM, Dr. River Emergency Provider [facility], [facility] Primary Care Unavailabl e Odell, David Admitting Unavailable Odell, David Consulting Unavailable Odell, David Attending Unavailable [facility], Amy Attending Unavailabl e [facility], [facility] Primary Care Unavailabl e [facility], [facility] Primary Care Unavailabl e Abdirizak Forrest Attending Unavailable Abdirizak Forrest Referring Unavailable [facility], [facility] Primary Care Unavailabl e Abdirizak Forrest Attending Unavailable Abdirizak Forrest Referring Unavailable [facility], [facility] Primary Care Unavailabl e Nayana Peter Attending Unavailable Nayana Peter Referring Unavailable Koram, Brenad Berenice Attending Unavailable Koram, Brenda Berenice Admitting Unavailable [facility], [facility] Primary Care Unavailabl e Robotham, Annalise Consulting Unavailable Koram, Brenda Berenice Consulting Unavailable Gale Lr Attending Unavailable Gale Lr Consulting Unavailable [facility], Amy Referring Unavailabl e Rashad [facility], [facility] Primary Care Unavailabl e Nayana Peter Attending Unavailable [facility], [facility] Primary Care Unavailabl e Frantz Coulter Attending Unavailable Dewayne Grant Admitting Unavailable Dewayne Grant Consulting Unavailable [facility], [facility] Primary Care Unavailabl e Odell, David Admitting Unavailable Odell, David Attending Unavailable Koram, Brenda Berenice Admitting Unavailable [facility], [facility] Primary Care Unavailabl e Robotham, Annalise Consulting Unavailable Gale Lr Attending Unavailable Sravanam, Brenda Berenice Consulting Unavailable [facility], [facility] Primary Care Unavailabl e Venkatesh Torres Attending Unavailable [facility], [facility] Primary Care Unavailabl e Perico Norman Attending Unavailable [facility], Amy Attending Unavailabl e [facility], [facility] Primary Care Unavailabl e Poli Barfield Attending Unavailable [facility], [facility] Primary Care Unavailabl e Clare Steve Attending Unavailable [facility], [facility] Primary Care UnavailNayana Green Attending Unavailable Nayana Peter Referring Unavailable Kalee Peter Referring Unavailable [facility], [facility] Primary Care UnavailNayana Green Attending Unavailable Fabricio Guevara Attending Unavailable Fabricio Guevara Referring Unavailable [facility], [facility] Primary Care Unavailarpita e Rashad [facility] Maile e Frantz Coulter Attending Unavailable Dewayne Grant Admitting Unavailable Dewayne Grant Consulting Unavailable Frantz Coulter Consulting Unavailable Gale Lr Referring Unavailable Annalise Welch Attending Unavailable Allergies Allergy Classification Reported Allergen(s) Allergy Type Date of Onset Reaction(s) Facility (2 sources) Cephalexin Drug Allergy 10-31-2013 Other: See Comments [facility] Work Phone: Medications Current Medications Medication Drug Class(es) Dates Sig (Normalized) Sig (Original) [id number] 200 actuat albuterol 0.09 mg/actuat metered dose [...] 0 Refill(s), 02/18/23 5:07:00 PM EDT, Pharmacy: [id number], 169.9, cm, 02/11/23 1:49:00 EDT, Height, [...] Discontinued 500 mg PO EVERY 6 HOURS October 24, 2021 12:00am November 16, 2021 9:58am Comment on above: Take 1 capsule by mo [facility] three times daily for 7 days. ciprofloxacin 500 mg oral tablet (1 source) Quinolone Antimicrobial Start: take 500 mg by mouth every twelve hours Ciprofloxacin Hcl Active 500 MG PO Q12H 10 August 15, 2022 12:00am clindamycin 300 mg oral capsule (1 source) Lincosamide Antibacterial Start: 12 hr dextromethorphan hydrobromide 30 mg / guaiFENesin 600 mg extended release oral tablet (1 source) Uncompetitive W-xztlkw-Z-aspartate Receptor Antagonist, Sigma-1 Agonist Start: End: take 1 tablet by mouth every twelve hours as needed dextromethorphan-gua iFENesin (MUCINEX DM) 30-600 mg per tablet Take 1 tablet by mouth two times a day as needed for cough for up to 7 days. 14 tablet 07/03/2024 07/10/2024 Active docusate sodium 50 mg / sennosides, shelter 8.6 mg oral tablet (6 sources) Start: [...] Active 1 APPLIC TOPICAL TWICE A DAY April 09, 2022 12:00am 3 ml insulin [...] Start: 06-30-20 linaclotide 0.145 mg oral capsule (9 sources) Guanylate Cyclase-C Agonist Start: 12-14-19 losartan [...] January 30, 2022 12:00am polyethylene glycol 3350 671720 mg / potassium chloride 2970 mg / sodium bicarbonate 6740 mg / sodium chloride 5860 mg / sodium sulfate 40239 mg powder for oral solution (20 sources) [...] on above: Take 2 tablets by mo [facility] every 6 hours as needed. 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 Fax to [phone] routine picc care per protocol Completed/Discontinued Medications Medication Drug Class(es) Dates Sig (Normalized) Sig (Original) acetaminophen 325 mg oral tablet (20 sources) Start: 05-09-2023 End: 06-27-2023 Start: 05-09-2023 End: 06-27-2023 take 650 mg by mouth every six hours as needed Acetaminophen Discontinued 650 MG PO EVERY 6 HOURS NEEDED May 09, 2023 12:00am June 27, 2023 6:51am Start: 03-04-2023 take 2 tablets by mo [facility] every six hours as needed acetaminophen (TYLENOL EXTRA STRENGTH) 500 mg tablet Take 2 tablets by mouth every 6 hours as needed for pain. 30 tablet 03/04/2023 Active Comment on above: Take 2 tablets by mo arh every 6 hours as needed for pain. [...] 05-04-2023 Start: 10-24-2021 [facility] as [facility] [...] on above: Take 1 capsule by mo [facility] three times daily as needed for cough. [...] Start: 10-29-2021 take 1 capsule by mo [facility] once daily Docusate Sodium (Colace) 100 mg capsule Active 100 MG PO DAILY October 29, 2021 12:01pm doxycycline hyclate 100 mg o ral capsule (17 sources) Tetracycline-class Drug Start: 07-29-2023 End: 12-20-2023 [...] daily Fiber Active 1 TABLET PO DAILY Rubi 5th, 2024 1:00am glimepiride 2 mg oral tablet (3 [...] on above: One pill by mouth da heatehr w/ breakfast X 1 week; then increase to twice daily w/ meals. Take 1 tablet by balbir th twice daily with meals. MULTIVITAMIN ORAL (3 sources) End: 03-23-2022 MULTIVITAMIN ORAL Take by mouth. 03/23/2022 Discontinued End: 03-23-2022 MULTIVITAMIN ORAL Take by mo uth. 0 03/23/2022 Discontinued MULTIVITAMIN ORA L Take by mouth. 0 Active Comment on above: Take by mouth. omeprazole 40 mg delayed rel ease oral capsule (20 sources) Proton Pump Inhibitor Start: 01-19-2023 End: 05-09-2023 polyethylene glycol 3350 170 00 mg powder for oral solution (20 sources) Osmotic Laxative Start: 11-28-2024 End: 12-30-2024 Start: 04-06-2022 End: 05-04-2023 Start: 06-06-2021 End: 02-18-2023 polyethylene glycol 3350 (MA RALAX, GLYCOLAX) 17 gram/dose powder Take 17 [...] days. traMADol hydrochloride 50 mg oral tablet (10 sources) Opioid Agonist Start: 11-28-2024 End: 12-30-2024 [...] 300 mg by mouth daily at bedtime. (14 sources) Start: 12-24-2023 End: 11-25-2024 Start: 07-23-2023 End: 11-25-2024 Start: 07-23-2023 Start: 07-16-2023 End: 11-25-2024 Start: 07-16-2023 Problems Active Problems Problem Classification Problem Date Documented Da te Episodic/Chronic Abdominal pain (20 sources) Abdominal pain; Translations: [Unspecified abdominal pain] Onset: 02-11-2023 Episodic Acute and unspecified renal failure (13 sources) Acute renal failure syndrome; Translations: [Acute kidney failure, unspecified] Onset: 01-04-2025 12-30-2024 Episodic Administrative/social admission (20 sources) Patient [...] Episodic Other disorders of stomach and duodenum (13 sources) Cyclical vomiting syndrome; Translations: [Cyclical vomiting syndrome unrelated to migraine] 12-30-2024 Episodic Other eye disorders (1 source) Pain of right eye; Translations: [Ocular pain, right eye] 07-01-2023 Episodic Other eye disorders (16 sources) Complete obstruction of lacrimal canaliculus ; Translations: [Blocked tear duct] 07-02-2023 Episodic Other gastrointestinal disorders (20 sources) Constipation; Translations: [Constipation, unspecified] Onset: 03-02-2023 11-06-2021 Episodic Other gastrointestinal disorders (2 sources) Constipation, unspecified; Translations: [Constipation, unspecified] Onset: 02-11-2023 Episodic Other injuries and conditions due to external causes (13 sources) Unspecified injury of right Achilles tendon, initial encounter; Translations: [Injury of right Achilles tendon] 12-24-2023 Episodic Other liver diseases (8 sources) Elevated liver enzymes level; Translations: [Abnormal [...] Onset: 03-01-2023 Chronic Other nervous system disorders (15 sources) Acute postoperative pain; Translations: [Other acute postprocedural pain] 07-23-2023 Episodic Other nutritional; endocrine; and metabolic disorders (8 sources) Body mass index 40+ - severely obese; Translations: [Morbid (severe) obesity due to excess calories] Onset: 06-13-2013 06-13-2013 Chronic Other nutritional; endocrine; and metabolic disorders (13 sources) Obese class I; Translations: [Obesity, unspecified] Onset: 02-18-2023 02-20-2023 Chronic Other nutritional; endocrine; and metabolic disorders (8 sources) Body mass index 30+ - obesity; Translations: [Obesity, unspecified] 12-31-2024 Chronic Other nutritional; endocrine; and metabolic disorders (1 source) Obesity, unspecified; Translations: [Obesity, unspecified] Onset: 01-01-2025 [...] function studies] Onset: 12-28-2024 Episodic Personality disorders (18 sources) Borderline personality disorder; Translations: [Borderline personality disorder] Onset: 03-02-2023 03-02-2023 Chronic Pneumonia (except that caused by tuberculosis or sexually transmitted disease) (1 source) Bronchopneumonia; Translations: [Bronchopneumonia, unspecified organism] 06-26-2024 Episodic Residual codes; unclassified (20 sources) Other specified health status; Translations: [Failure of outpatient treatment] 01-14-2023 Episodic Residual codes; unclassified (8 sources) Patient noncompliance - general; Translations: [General [...] today or tomorrow to set up appointment. secretary receptionist called to schedule appointment. I had to leave a message so Dr. Martinez office should be calling the patient within 48 hours. Unclassified (1 source) Cyclical vomiting syndrome unrelated to migraine; Translations: [Cyclical vomiting syndrome unrelated to migraine] Onset: 01-01-2025 Unclassified (1 source) Patient's noncompliance with other medical treatment and [...] Test Name Value Interpretation Reference Range Facility Alcohol, Blood (Medical)-Ser [facility] 01-07-2025 SERUM ETOH < 10.1 Normal <=10.0 [facility] Comment on above: Result Comment: This test is for medical purposes only. The legaldefinition of intoxication varies according to local law. Performed By: #### L 100.0100, L501.9100, L505.5000, L700.6800, L500.4050 ####[facility] [address] [place], [address] Bedside Glucoseon 01-07-2025 FINGERSTICK GLU 71 mg/dL Low 74-106 [facility] Comment on above: Result Comment: BULL GEMENT OF PATIENT CARE PER NURSING PROTOCOL Performed By: #### L 501.080 ####[facility] [address] [place], [address] CBC W/Diff, Automatedon 06- Absolute Lymph 4.44 X10 3/uL Normal 0.83-4.51 [facility] Comment on above: Performed By: #### L 100.0100, L501.9100, L505.5000, L700.6800, L500.4050 ####[facility] [address] [place], [address] Absolute Neut 10.2 X10 3/uL High 2.0-7.7 [facility] Comment on above: Performed By: #### L 100.0100, L501.9100, L505.5000, L700.6800, L500.4050 ####[facility] [address] [place], [address] Basophils/100 WBC (Bld) 0.2 % Normal 0-[address] [facility] Comment on above: Performed By: #### L 100.0100, L501.9100, L505.5000, L700.6800, L500.4050 ####[facility] [address] [place], [address] Eosinophils/100 WBC (Bld) 0.1 % Normal 0-5 [facility] Comment on above: Performed By: #### L 100.0100, L501.9100, L505.5000, L700.6800, L500.4050 ####[facility] [address] [place], [address] Erythrocyte distribution width (RBC) [Ratio] 14.6 % Normal 11.6-14.6 [facility] Comment on above: Performed By: #### L 100.0100, L501.9100, L505.5000, L700.6800, L500.4050 ####[facility] [address] [place], [address] Hematocrit (Bld) [Volume fraction] 38.5 % Normal 37-47 [facility] Comment on above: Performed By: #### L 100.0100, L501.9100, L505.5000, L700.6800, L500.4050 ####[facility] [address] [place], [address] Hemoglobin (Bld) [Mass/Vol] 13.1 g/dL Normal 12.0-15.0 [facility] Comment on above: Performed By: #### L 100.0100, L501.9100, L505.5000, L700.6800, L500.4050 ####[facility] [address] [place], [address] IG% 0.600 Normal 0.0-0.9 [facility] Comment on above: Result Comment: IG% - Immature Granulocytes (promyelocytes, myelocytes andmetamyelocytes) > 1% indicates that a LEFT SHIFT is Present. Performed By: #### L 100.0100, L501.9100, L505.5000, L700.6800, L500.4050 ####[facility] [address] [place], [address] Lymphocytes/100 WBC (Bld) 27.8 % Normal 19-41 [facility] Comment on above: Performed By: #### L 100.0100, L501.9100, L505.5000, L700.6800, L500.4050 ####[facility] [address] [place], [address] MCH (RBC) [Entitic mass] 27.6 pg Normal 27.0-32.0 [facility] Comment on above: Performed By: #### L 100.0100, L501.9100, L505.5000, L700.6800, L500.4050 ####[facility] [address] [place], [address] MCHC (RBC) [Mass/Vol] 34.0 g/dL Normal 32-36 [facility] Comment on above: Performed By: #### L 100.0100, L501.9100, L505.5000, L700.6800, L500.4050 ####[facility] [address] [place], [address] MCV (RBC) [Entitic vol] 81.1 fL Normal 81-[address] [facility] Comment on above: Performed By: #### L 100.0100, L501.9100, L505.5000, L700.6800, L500.4050 ####[facility] [address] [place], [address] Monocytes/100 WBC (Bld) 7.4 % Normal 0-[address] [facility] Comment on above: Performed By: #### L 100.0100, L501.9100, L505.5000, L700.6800, L500.4050 ####[facility] [address] [place], [address] Neutrophils/100 WBC (Bld) 63.9 % Normal 47-70 [facility] Comment on above: Performed By: #### L 100.0100, L501.9100, L505.5000, L700.6800, L500.4050 ####[facility] [address] [place], [address] Nucleated RBC (Bld) [#/Vol] 0 10*3/uL Normal 0-5 [facility] Comment on above: Performed By: #### L 100.0100, L501.9100, L505.5000, L700.6800, L500.4050 ####[facility] [address] [place], [address] Platelet mean volume (Bld) [Entitic vol] 9.5 fL Normal 6.2-12.0 [facility] Comment on above: Performed By: #### L 100.0100, L501.9100, L505.5000, L700.6800, L500.4050 ####[facility] [address] [place], [address] Platelets (Bld) [#/Vol] 477 10*3/uL High 150-450 [facility] Comment on above: Performed By: #### L 100.0100, L501.9100, L505.5000, L700.6800, L500.4050 ####[facility] [address] [place], [address] RBC (Bld) [#/Vol] 4.75 10*6/uL Normal 4.2-5.4 [facility] Comment on above: Performed By: #### L 100.0100, L501.9100, L505.5000, L700.6800, L500.4050 ####[facility] [address] [place], [address] RDW SD 42.3 fl Normal 35.1-43.9 [facility] Comment on above: Performed By: #### L 100.0100, L501.9100, L505.5000, L700.6800, L500.4050 ####[facility] [address] [place], [address] WBC (Bld) [#/Vol] 16.0 10*3/uL High 4.4-11.0 [facility] Comment on above: Performed By: #### L 100.0100, L501.9100, L505.5000, L700.6800, L500.4050 ####[facility] [address] [place], [address] Comprehensive Metabolic Prof [facility] 01-07-2025 Albumin [Mass/Vol] 3.9 g/dL Normal 3.5-5.0 [facility] Comment on above: Performed By: #### L 100.0100, L501.9100, L505.5000, L700.6800, L500.4050 ####[facility] [address] [place], [address] Albumin/Globulin [Mass ratio] 1.0 {ratio} Normal 0.9-2.4 [facility] Comment on above: Performed By: #### L 100.0100, L501.9100, L505.5000, L700.6800, L500.4050 ####[facility] [address] [place], [address] ALK PHOS 74 U/L Normal 35-104 [facility] Comment on above: Performed By: #### L 100.0100, L501.9100, L505.5000, L700.6800, L500.4050 ####[facility] [address] [place], [address] ALT [Catalytic activity/Vol] 17 U/L Normal <=34 [facility] Comment on above: Result Comment: Hemo lysis present, Results??could be affected.?? Performed By: #### L 100.0100, L501.9100, L505.5000, L700.6800, L500.4050 ####[facility] [address] [place], [address] AST [Catalytic activity/Vol] 35 U/L High <=31 [facility] Comment on above: Result Comment: Hemo lysis present, Results??could be affected.?? Performed By: #### L 100.0100, L501.9100, L505.5000, L700.6800, L500.4050 ####[facility] [address] [place], [address] Bilirubin [Mass/Vol] 0.64 mg/dL Normal 0.00-1.30 [facility] Comment on above: Performed By: #### L 100.0100, L501.9100, L505.5000, L700.6800, L500.4050 ####[facility] [address] [place], [address] BUN/CRE 10.4 RATIO Normal 10-20 [facility] Comment on above: Performed By: #### L 100.0100, L501.9100, L505.5000, L700.6800, L500.4050 ####[facility] [address] [place], [address] Calcium [Mass/Vol] 9.1 mg/dL Normal 7.6-11.0 [facility] Comment on above: Performed By: #### L 100.0100, L501.9100, L505.5000, L700.6800, L500.4050 ####[facility] [address] [place], [address] Chloride [Moles/Vol] 98 mmol/L Normal 98-108 [facility] Comment on above: Performed By: #### L 100.0100, L501.9100, L505.5000, L700.6800, L500.4050 ####[facility] [address] [place], [address] CO2 [Moles/Vol] 20.7 mmol/L Low 21.0-32.0 [facility] Comment on above: Performed By: #### L 100.0100, L501.9100, L505.5000, L700.6800, L500.4050 ####[facility] [address] [place], [address] Creatinine [Mass/Vol] 1.10 mg/dL Normal 0.70-1.20 [facility] Comment on above: Performed By: #### L 100.0100, L501.9100, L505.5000, L700.6800, L500.4050 ####[facility] [address] [place], [address] ECRCL 90.29 ml/min Normal 50-250 [facility] Comment on above: Performed By: #### L 100.0100, L501.9100, L505.5000, L700.6800, L500.4050 ####[facility] [address] [place], [address] GAP 18 High 5-15 [facility] Comment on above: Performed By: #### L 100.0100, L501.9100, L505.5000, L700.6800, L500.4050 ####[facility] [address] [place], [address] GFR/1.73 sq M.predicted among non-blacks MDRD (S/P/Bld) [Vol rate/Area] 68 mL/min/{1.73_m2} Normal >60 [facility] Comment on above: Result Comment: mL/m in/1.73m2 CKD-EPI Creatinine Equation (2020) Performed By: #### L 100.0100, L501.9100, L505.5000, L700.6800, L500.4050 ####[facility] [address] [place], [address] Globulin (S) [Mass/Vol] 3.8 g/dL Normal 2.2-4.2 [facility] Comment on above: Performed By: #### L 100.0100, L501.9100, L505.5000, L700.6800, L500.4050 ####[facility] [address] [place], [address] Glucose [Mass/Vol] 85 mg/dL Normal 70-99 [facility] Comment on above: Performed By: #### L 100.0100, L501.9100, L505.5000, L700.6800, L500.4050 ####[facility] [address] [place], [address] Potassium [Moles/Vol] 2.8 mmol/L Low 3.3-5.1 [facility] Comment on above: Result Comment: Hemo lysis present, Results??could be affected.?? Performed By: #### L 100.0100, L501.9100, L505.5000, L700.6800, L500.4050 ####[facility] [address] [place], [address] Sodium [Moles/Vol] 136 mmol/L Normal 133-145 [facility] Comment on above: Performed By: #### L 100.0100, L501.9100, L505.5000, L700.6800, L500.4050 ####[facility] [address] [place], [address] T PROT 7.7 g/dL Normal 5.9-8.4 [facility] Comment on above: Performed By: #### L 100.0100, L501.9100, L505.5000, L700.6800, L500.4050 ####[facility] [address] [place], [address] Urea nitrogen [Mass/Vol] 11 mg/dL Normal 4-19 [facility] Comment on above: Performed By: #### L 100.0100, L501.9100, L505.5000, L700.6800, L500.4050 ####[facility] [address] [place], [address] ,Serum,hCG Quali.on 01-07-2025 HCG, SERUM QUAL Negative Normal [facility] Comment on above: Performed By: #### L 100.0100, L501.9100, L505.5000, L700.6800, L500.4050 ####[facility] [address] [place], [address] Urinalysis, Completeon 01-07 BACTERIA 2+ /hpf Normal None Seen [facility] Comment on above: Order Comment: CLEAN CATCH Performed By: #### L 400.0001 ####[facility] [address] [place], [address] Mucus Ql (Urine sed) 1+ /hpf Normal [facility] Comment on above: Order Comment: CLEAN CATCH Performed By: #### L 400.0001 ####[facility] [address] [place], [address] EPI,SQUAMOUS 0-5 SEEN Normal 5-10 [facility] Comment on above: Order Comment: CLEAN CATCH Performed By: #### L 400.0001 ####[facility] [address] [place], [address] RBC 0-5 SEEN Normal 0-5 [facility] Comment on above: Order Comment: CLEAN CATCH Performed By: #### L 400.0001 ####[facility] [address] [place], [address] WBC 5-10 SEEN Normal 0-5 [facility] Comment on above: Order Comment: CLEAN CATCH Performed By: #### L 400.0001 ####[facility] [address] [place] [address] Urine Drug Screen (VISTA)on 01-07-2025 AMPHETAMINES Negative Normal <1000 ng/mL [facility] Comment on above: Performed By: #### L 100.0100, L501.9100, L505.5000, L700.6800, L500.4050 ####[facility] [address] [place] [address] BARBITIURATES Negative Normal < 200 ng/mL [facility] Comment on above: Performed By: #### L 100.0100, L501.9100, L505.5000, L700.6800, L500.4050 ####[facility] [address] [place] [address] BENZODIAZIPINE Negative Normal < 200 ng/mL [facility] Comment on above: Performed By: #### L 100.0100, L501.9100, L505.5000, L700.6800, L500.4050 ####[facility] [address] [place] [phone] BUP Ur Drug Scr Negative Normal < 200 ng/mL [facility] Comment on above: Performed By: #### L 100.0100, L501.9100, L505.5000, L700.6800, L500.4050 ####[facility] [address] [place], [address] COCAINE Negative Normal < 300 ng/mL [facility] Comment on above: Performed By: #### L 100.0100, L501.9100, L505.5000, L700.6800, L500.4050 ####[facility] [address] [place], [address] Fentanyl Negative Normal [facility] Comment on above: Performed By: #### L 100.0100, L501.9100, L505.5000, L700.6800, L500.4050 ####[facility] [address] [place], [place], [phone] METHADONE Negative Normal < 300 ng/mL [facility] Comment on above: Performed By: #### L 100.0100, L501.9100, L505.5000, L700.6800, L500.4050 ####[facility] [address] [place], [place], [phone] OPIATES Negative Normal < 300 ng/mL [facility] Comment on above: Performed By: #### L 100.0100, L501.9100, L505.5000, L700.6800, L500.4050 ####[facility] [address] [place], [phone] OXYCODONE Negative Normal < 100 ng/mL [facility] Comment on above: Performed By: #### L 100.0100, L501.9100, L505.5000, L700.6800, L500.4050 ####[facility] [address] [place], [place], [phone] PCP Negative Normal < 25 ng/mL [facility] Comment on above: Performed By: #### L 100.0100, L501.9100, L505.5000, L700.6800, L500.4050 ####[facility] [address] [place], [address] THC Positive Normal < 50 ng/mL [facility] Comment on above: Result Comment: If c onfirmation testing is needed, a separate order will berequired to send out testing to the reference laboratory. Performed By: #### L 100.0100, L501.9100, L505.5000, L700.6800, L500.4050 ####[facility] [address] [place], [address] Abdomen/Pelvis W IV Cont ONL Yon 01-04-2025 Abdomen/Pelvis W IV Cont ONLY Normal [facility] Absolute lymphocyte countOrd ered By: Perico Norman on 01-04-2025 Lymphocytes Auto (Unsp spec) [#/Vol] 4.04 10*3/uL 0.83-4.51 [facility] Alcohol, Blood (Medical)-Ser umon 01-04-2025 SERUM ETOH < 10.1 Normal <=10.0 [facility] Comment on above: Result Comment: This test is for medical purposes only. The legaldefinition of intoxication varies according to local law. Performed By: #### L 700.6800, L503.6005, L500.3400, L501.9100, L500.2500, L501.2450, L505.5000, L501.6901, L501.7300, L501.5200, L100.0100 ####[facility] [address] [place], [address] Amphetamine detection with 1 000 ng/mL as cutoffOrdered By: Perico Norman on 01-04-2025 Amphetamines Screen method >1000 ng/mL Ql (U) Negative < 200 ng/mL [facility] Anion gap in Serum or Plasma Ordered By: Perico Norman on 01-04-2025 Anion gap [Moles/Vol] 20 mmol/L High 5-15 [facility] Automated lymphocyte count a s percentage of total leukocytesOrdered By: Perico Norman on 01-04-2025 Lymphocytes/100 WBC Auto (Unsp spec) 27.5 % 19-41 [facility] BUN/creatinine ratioOrdered By: Perico Norman on 01-04-2025 Urea nitrogen/Creatinine [Mass ratio] 12.5 mg/mg 10- [facility] Basic Metabolic Profile (BMP )on 01-04-2025 BUN Normal 4-19 [facility] Comment on above: Result Comment: ERASTO ENT DISCHARGED. SPECIMEN NOT RECEIVED. Performed By: #### L 500.2500 ####[facility] [address] [place], [address] BUN/CRE Normal 10- [facility] Comment on above: Result Comment: ERASTO ENT DISCHARGED. SPECIMEN NOT RECEIVED. Performed By: #### L 500.2500 ####[facility] [address] [place], [address] Calcium Normal 7.6-11.0 [facility] Comment on above: Result Comment: ERASTO ENT DISCHARGED. SPECIMEN NOT RECEIVED. Performed By: #### L 500.2500 ####[facility] [address] [place], [address] CL Normal 98-108 [facility] Comment on above: Result Comment: ERASTO ENT DISCHARGED. SPECIMEN NOT RECEIVED. Performed By: #### L 500.2500 ####[facility] [address] [place], [address] CO2 Normal 21.0-32.0 [facility] Comment on above: Result Comment: ERASTO ENT DISCHARGED. SPECIMEN NOT RECEIVED. Performed By: #### L 500.2500 ####[facility] [address] [place], [address] CREAT,SERUM Normal 0.70-1.20 [facility] Comment on above: Result Comment: ERASTO ENT DISCHARGED. SPECIMEN NOT RECEIVED. Performed By: #### L 500.2500 ####[facility] [address] [place], [address] eGFR Normal >60 [facility] Comment on above: Result Comment: ERASTO ENT DISCHARGED. SPECIMEN NOT RECEIVED. Performed By: #### L 500.2500 ####[facility] [address] [place], [address] GAP Normal 5-15 [facility] Comment on above: Result Comment: ERASTO ENT DISCHARGED. SPECIMEN NOT RECEIVED. Performed By: #### L 500.2500 ####[facility] [address] [place], [address] GLU Normal 70-99 [facility] Comment on above: Result Comment: ERASTO ENT DISCHARGED. SPECIMEN NOT RECEIVED. Performed By: #### L 500.2500 ####[facility] [address] [place], [address] Potassium Normal 3.3-5.1 [facility] Comment on above: Result Comment: ERASTO ENT DISCHARGED. SPECIMEN NOT RECEIVED. Performed By: #### L 500.2500 ####[facility] [address] [place], [address] Basic Metabolic Profile (BMP) Normal 133-145 [facility] Comment on above: Result Comment: ERASTO ENT DISCHARGED. SPECIMEN NOT RECEIVED. Performed By: #### L 500.2500 ####[facility] [address] [place], [address] BUN/CRE 12.5 RATIO Normal 10-20 [facility] Comment on above: Performed By: #### L 700.6800, L503.6005, L500.3400, L501.9100, L500.2500, L501.2450, L505.5000, L501.6901, L501.7300, L501.5200, L100.0100 ####[facility] [address] [place], [address] Calcium [Mass/Vol] 9.3 mg/dL Normal 7.6-11.0 [facility] Comment on above: Performed By: #### L 700.6800, L503.6005, L500.3400, L501.9100, L500.2500, L501.2450, L505.5000, L501.6901, L501.7300, L501.5200, L100.0100 ####[facility] [address] [place], [place], [phone] Chloride [Moles/Vol] 102 mmol/L Normal 98-108 [facility] Comment on above: Performed By: #### L 700.6800, L503.6005, L500.3400, L501.9100, L500.2500, L501.2450, L505.5000, L501.6901, L501.7300, L501.5200, L100.0100 ####[facility] [address] [place], [place], [phone] CO2 [Moles/Vol] 16.6 mmol/L Low 21.0-32.0 [facility] Comment on above: Performed By: #### L 700.6800, L503.6005, L500.3400, L501.9100, L500.2500, L501.2450, L505.5000, L501.6901, L501.7300, L501.5200, L100.0100 ####[facility] [address] [place], [place], [phone]) Creatinine [Mass/Vol] 0.93 mg/dL Normal 0.70-1.20 [facility] Comment on above: Performed By: #### L 700.6800, L503.6005, L500.3400, L501.9100, L500.2500, L501.2450, L505.5000, L501.6901, L501.7300, L501.5200, L100.0100 ####[facility] [address] [place], [address](003) ECRCL 105.48 ml/min Normal 50-250 [facility] Comment on above: Performed By: #### L 700.6800, L503.6005, L500.3400, L501.9100, L500.2500, L501.2450, L505.5000, L501.6901, L501.7300, L501.5200, L100.0100 ####[facility] [address] [place], [place], [phone] GAP 20 High 5-15 [facility] Comment on above: Performed By: #### L 700.6800, L503.6005, L500.3400, L501.9100, L500.2500, L501.2450, L505.5000, L501.6901, L501.7300, L501.5200, L100.0100 ####[facility] [address] [place], [place], [phone] GFR/1.73 sq M.predicted among non-blacks MDRD (S/P/Bld) [Vol rate/Area] 84 mL/min/{1.73_m2} Normal >60 [facility] Comment on above: Result Comment: mL/m in/1.73m2 CKD-EPI Creatinine Equation (2020) Performed By: #### L 700.6800, L503.6005, L500.3400, L501.9100, L500.2500, L501.2450, L505.5000, L501.6901, L501.7300, L501.5200, L100.0100 ####[facility] [address] [place], [place], [address] Glucose [Mass/Vol] 159 mg/dL High 70-99 [facility] Comment on above: Performed By: #### L 700.6800, L503.6005, L500.3400, L501.9100, L500.2500, L501.2450, L505.5000, L501.6901, L501.7300, L501.5200, L100.0100 ####[facility] [address] [place], [place], [address] Potassium [Moles/Vol] 3.1 mmol/L Low 3.3-5.1 [facility] Comment on above: Performed By: #### L 700.6800, L503.6005, L500.3400, L501.9100, L500.2500, L501.2450, L505.5000, L501.6901, L501.7300, L501.5200, L100.0100 ####[facility] [address] [place], [address] Sodium [Moles/Vol] 139 mmol/L Normal 133-145 [facility] Comment on above: Performed By: #### L 700.6800, L503.6005, L500.3400, L501.9100, L500.2500, L501.2450, L505.5000, L501.6901, L501.7300, L501.5200, L100.0100 ####[facility] [address] [facility] [address] [place], [place], [phone] Urea nitrogen [Mass/Vol] 12 mg/dL Normal 4-19 [facility] Comment on above: Performed By: #### L 700.6800, L503.6005, L500.3400, L501.9100, L500.2500, L501.2450, L505.5000, L501.6901, L501.7300, L501.5200, L100.0100 ####[facility] [address] [facility] [place], [place], [address] Basophil percentageOrdered B y: Perico Norman on 01-04-2025 Basophils/100 WBC (Bld) 0.3 % 0-[address] [facility] Beta-Hydroxbytyrateon 2024 BETA-HYDROXYBUT 2.1 mmol/L High 0.0-0.3 [facility] Comment on above: Performed By: #### L 700.6800, L503.6005, L500.3400, L501.9100, L500.2500, L501.2450, L505.5000, L501.6901, L501.7300, L501.5200, L100.0100 ####[facility] [address] [place], [address] Beta-hydroxybutyrateOrdered By: Perico Norman on 01-04-2025 Beta hydroxybutyrate [Mass/Vol] 2.1 mmol/L High 0.0-0.3 [facility] Bilirubin directOrdered By: Perico Norman on 01-04-2025 Bilirubin.direct [Mass/Vol] 0.22 mg/dL 0.00-0.30 [facility] Bilirubin, totalOrdered By: Perico Norman on 01-04-2025 Bilirubin [Mass/Vol] 0.64 mg/dL 0.00-1.30 [facility] CBC W/Diff, Automatedon 12-11 Absolute Lymph 4.04 X10 3/uL Normal 0.83-4.51 [facility] Comment on above: Performed By: #### L 700.6800, L503.6005, L500.3400, L501.9100, L500.2500, L501.2450, L505.5000, L501.6901, L501.7300, L501.5200, L100.0100 ####[facility] [address] [place], [address] Absolute Neut 9.5 X10 3/uL High 2.0-7.7 [facility] Comment on above: Performed By: #### L 700.6800, L503.6005, L500.3400, L501.9100, L500.2500, L501.2450, L505.5000, L501.6901, L501.7300, L501.5200, L100.0100 ####[facility] [address] [place], [address] Basophils/100 WBC (Bld) 0.3 % Normal 0-[address] [facility] Comment on above: Performed By: #### L 700.6800, L503.6005, L500.3400, L501.9100, L500.2500, L501.2450, L505.5000, L501.6901, L501.7300, L501.5200, L100.0100 ####[facility] [address], [address](051) Eosinophils/100 WBC (Bld) 0.0 % Normal 0-5 [facility] Comment on above: Performed By: #### L 700.6800, L503.6005, L500.3400, L501.9100, L500.2500, L501.2450, L505.5000, L501.6901, L501.7300, L501.5200, L100.0100 ####[facility] [address] [place], [address] Erythrocyte distribution width (RBC) [Ratio] 14.7 % High 11.6-14.6 [facility] Comment on above: Performed By: #### L 700.6800, L503.6005, L500.3400, L501.9100, L500.2500, L501.2450, L505.5000, L501.6901, L501.7300, L501.5200, L100.0100 ####[facility] [address] [facility] [place], [address](179) Hematocrit (Bld) [Volume fraction] 36.0 % Low 37-47 [facility] Comment on above: Performed By: #### L 700.6800, L503.6005, L500.3400, L501.9100, L500.2500, L501.2450, L505.5000, L501.6901, L501.7300, L501.5200, L100.0100 ####[facility] [address] [place], [address](274) Hemoglobin (Bld) [Mass/Vol] 12.4 g/dL Normal 12.0-15.0 [facility] Comment on above: Performed By: #### L 700.6800, L503.6005, L500.3400, L501.9100, L500.2500, L501.2450, L505.5000, L501.6901, L501.7300, L501.5200, L100.0100 ####[facility] [address] [place], [place], [phone] IG% 0.700 Normal 0.0-0.9 [facility] Comment on above: Result Comment: IG% - Immature Granulocytes (promyelocytes, myelocytes andmetamyelocytes) > 1% indicates that a LEFT SHIFT is Present. Performed By: #### L 700.6800, L503.6005, L500.3400, L501.9100, L500.2500, L501.2450, L505.5000, L501.6901, L501.7300, L501.5200, L100.0100 ####[facility] [address] [place], [address] Lymphocytes/100 WBC (Bld) 27.5 % Normal 19-41 [facility] Comment on above: Performed By: #### L 700.6800, L503.6005, L500.3400, L501.9100, L500.2500, L501.2450, L505.5000, L501.6901, L501.7300, L501.5200, L100.0100 ####[facility] [address] [place], [place], [phone] MCH (RBC) [Entitic mass] 27.7 pg Normal 27.0-32.0 [facility] Comment on above: Performed By: #### L 700.6800, L503.6005, L500.3400, L501.9100, L500.2500, L501.2450, L505.5000, L501.6901, L501.7300, L501.5200, L100.0100 ####[facility] [address] [facility] [place], [address] MCHC (RBC) [Mass/Vol] 34.4 g/dL Normal 32-36 [facility] Comment on above: Performed By: #### L 700.6800, L503.6005, L500.3400, L501.9100, L500.2500, L501.2450, L505.5000, L501.6901, L501.7300, L501.5200, L100.0100 ####[facility] [address] [place], [address] MCV (RBC) [Entitic vol] 80.5 fL Low 81-[address] [facility] Comment on above: Performed By: #### L 700.6800, L503.6005, L500.3400, L501.9100, L500.2500, L501.2450, L505.5000, L501.6901, L501.7300, L501.5200, L100.0100 ####[facility] [address] [place], [place], [phone](533) Monocytes/100 WBC (Bld) 6.7 % Normal 0-10 [facility] Comment on above: Performed By: #### L 700.6800, L503.6005, L500.3400, L501.9100, L500.2500, L501.2450, L505.5000, L501.6901, L501.7300, L501.5200, L100.0100 ####[facility] [address] [place], [place], [phone] Neutrophils/100 WBC (Bld) 64.8 % Normal 47-70 [facility] Comment on above: Performed By: #### L 700.6800, L503.6005, L500.3400, L501.9100, L500.2500, L501.2450, L505.5000, L501.6901, L501.7300, L501.5200, L100.0100 ####[facility] [address] [place], [address] Nucleated RBC (Bld) [#/Vol] 0 10*3/uL Normal 0-5 [facility] Comment on above: Performed By: #### L 700.6800, L503.6005, L500.3400, L501.9100, L500.2500, L501.2450, L505.5000, L501.6901, L501.7300, L501.5200, L100.0100 ####[facility] [address] [place], [address] Platelet mean volume (Bld) [Entitic vol] 10.0 fL Normal 6.2-12.0 [facility] Comment on above: Performed By: #### L 700.6800, L503.6005, L500.3400, L501.9100, L500.2500, L501.2450, L505.5000, L501.6901, L501.7300, L501.5200, L100.0100 ####[facility] [address] [place], [address] Platelets (Bld) [#/Vol] 446 10*3/uL Normal 150-450 [facility] Comment on above: Performed By: #### L 700.6800, L503.6005, L500.3400, L501.9100, L500.2500, L501.2450, L505.5000, L501.6901, L501.7300, L501.5200, L100.0100 ####[facility] [address] [place], [address] RBC (Bld) [#/Vol] 4.47 10*6/uL Normal 4.2-5.4 [facility] Comment on above: Performed By: #### L 700.6800, L503.6005, L500.3400, L501.9100, L500.2500, L501.2450, L505.5000, L501.6901, L501.7300, L501.5200, L100.0100 ####[facility] [address] [place], [address] RDW SD 42.6 fl Normal 35.1-43.9 [facility] Comment on above: Performed By: #### L 700.6800, L503.6005, L500.3400, L501.9100, L500.2500, L501.2450, L505.5000, L501.6901, L501.7300, L501.5200, L100.0100 ####[facility] [address] [place], [address] WBC (Bld) [#/Vol] 14.7 10*3/uL High 4.4-11.0 [facility] Comment on above: Performed By: #### L 700.6800, L503.6005, L500.3400, L501.9100, L500.2500, L501.2450, L505.5000, L501.6901, L501.7300, L501.5200, L100.0100 ####[facility] [address] [place], [place], [phone] CO2 (BldV) [Moles/Vol]Ordere d By: Perico Norman on 01-04-2025 CO2 [Moles/Vol] 20 mmol/L Low 23-33 [facility] Carbon dioxide, total [Moles /volume] in Central venous bloodOrdered By: Perico Norman on 01-04-2025 CO2 [Moles/Vol] 16.6 mmol/L Low 21.0-32.0 [facility] Chloride assayOrdered By: Nadine Norman on 01-04-2025 Chloride [Moles/Vol] 102 mmol/L 98-108 [facility] Emergency Department Summary on 01-04-2025 Emergency Department Summary Normal [facility] Eosinophil percentageOrdered By: Perico Norman on 01-04-2025 Eosinophils/100 WBC (Bld) 0.0 % 0-5 [facility] Erythrocyte distribution wid th ratioOrdered By: Perico Norman on 01-04-2025 Erythrocyte distribution width (RBC) [Ratio] 14.7 % High 11.6-14.6 [facility] Erythrocyte distribution wid th standard deviationOrdered By: Perico Norman on 01-04-2025 Erythrocyte distribution width (RBC) [Ratio] 42.6 fl 35.1-43.9 [facility] Glomerular filtration rate ( GFR) estimation/1.73 sq m using serum, plasma, or whole bOrdered By: Perico Norman on 01-04-2025 GFR/1.73 sq M.predicted among non-blacks MDRD (S/P/Bld) [Vol rate/Area] 84 mL/min/{1.73_m2} >60 [facility] Hematocrit Auto (Bld) [Volum e fraction]Ordered By: Perico Norman on 01-04-2025 Hematocrit (Bld) [Volume fraction] 36.0 % Low 37-47 [facility] Hemoglobin measurementOrdere d By: Perico Norman on 01-04-2025 Hemoglobin (Bld) [Mass/Vol] 12.4 g/dL 12.0-15.0 [facility] Immature granulocytes/100 WB C Auto (Bld)Ordered By: Perico Norman on 01-04-2025 Immature granulocytes/100 WBC (Bld) 0.700 % 0.0-0.9 [facility] Lactic Acidon 01-04-2025 Lactate [Moles/Vol] 1.6 mmol/L Normal 0.0-2.0 [facility] Comment on above: Order Comment: Y Performed By: #### L 700.6800, L503.6005, L500.3400, L501.9100, L500.2500, L501.2450, L505.5000, L501.6901, L501.7300, L501.5200, L100.0100 ####[facility] [id number] [place], [address] Lipaseon 01-04-2025 Lipase [Catalytic activity/Vol] 32 U/L Normal 13-75 [facility] Comment on above: Result Comment: Adam faulkner note:LIPASE revised reference range effective 22.New Lipase methodology. Expected to produce lower valuesthan the previous assay method.NEW Reference Range: 13 - 75 U/L Performed By: #### L 700.6800, L503.6005, L500.3400, L501.9100, L500.2500, L501.2450, L505.5000, L501.6901, L501.7300, L501.5200, L100.0100 ####[facility] [address] [place], [place], [id number] Liver Profileon 01-04-2025 Albumin [Mass/Vol] 4.2 g/dL Normal 3.5-5.0 [facility] Comment on above: Performed By: #### L 700.6800, L503.6005, L500.3400, L501.9100, L500.2500, L501.2450, L505.5000, L501.6901, L501.7300, L501.5200, L100.0100 ####[facility] [address] [place], [place], [id number] ALK PHOS 70 U/L Normal 35-104 [facility] Comment on above: Performed By: #### L 700.6800, L503.6005, L500.3400, L501.9100, L500.2500, L501.2450, L505.5000, L501.6901, L501.7300, L501.5200, L100.0100 ####[facility] [address] [place], [place], [id number] ALT [Catalytic activity/Vol] 9 U/L Normal <=34 [facility] Comment on above: Performed By: #### L 700.6800, L503.6005, L500.3400, L501.9100, L500.2500, L501.2450, L505.5000, L501.6901, L501.7300, L501.5200, L100.0100 ####[facility] [address] [place], [address] AST [Catalytic activity/Vol] 17 U/L Normal <=31 [facility] Comment on above: Performed By: #### L 700.6800, L503.6005, L500.3400, L501.9100, L500.2500, L501.2450, L505.5000, L501.6901, L501.7300, L501.5200, L100.0100 ####[facility] [address] [place], [place], [phone] Bilirubin [Mass/Vol] 0.64 mg/dL Normal 0.00-1.30 [facility] Comment on above: Performed By: #### L 700.6800, L503.6005, L500.3400, L501.9100, L500.2500, L501.2450, L505.5000, L501.6901, L501.7300, L501.5200, L100.0100 ####[facility] [address] [place], [place], [phone] Bilirubin.direct [Mass/Vol] 0.22 mg/dL Normal 0.00-0.30 [facility] Comment on above: Performed By: #### L 700.6800, L503.6005, L500.3400, L501.9100, L500.2500, L501.2450, L505.5000, L501.6901, L501.7300, L501.5200, L100.0100 ####[facility] [address] [place], [place], [phone] Globulin (S) [Mass/Vol] 3.8 g/dL Normal 2.2-4.2 [facility] Comment on above: Performed By: #### L 700.6800, L503.6005, L500.3400, L501.9100, L500.2500, L501.2450, L505.5000, L501.6901, L501.7300, L501.5200, L100.0100 ####[facility] [address] [place], [place], [address] T PROT 8.0 g/dL Normal 5.9-8.4 [facility] Comment on above: Performed By: #### L 700.6800, L503.6005, L500.3400, L501.9100, L500.2500, L501.2450, L505.5000, L501.6901, L501.7300, L501.5200, L100.0100 ####[facility] [address] [facility] [place], [place], [address] MCV (mean corpuscular volume ) determinationOrdered By: Perico Norman on 01-04-2025 MCV (RBC) [Entitic vol] 80.5 fL Low 81-[address] [facility] Magnesiumon 01-04-2025 Magnesium [Mass/Vol] 1.8 mg/dL Normal 1.5-2.2 [facility] Comment on above: Performed By: #### L 700.6800, L503.6005, L500.3400, L501.9100, L500.2500, L501.2450, L505.5000, L501.6901, L501.7300, L501.5200, L100.0100 ####[facility] [address] [facility] [place], [place], [phone] Magnesium measurement (mass/ volume)Ordered By: Perico Norman on 01-04-2025 Magnesium (Unsp spec) [Mass/Vol] 1.8 mg/dL 1.5-2.2 [facility] Mean corpuscular hemoglobin (MCH) determinationOrdered By: Perico Norman on 01-04-2025 MCH (RBC) [Entitic mass] 27.7 pg 27.0-32.0 [facility] Monocyte percentageOrdered B y: Perico Norman on 01-04-2025 Monocytes/100 WBC (Bld) 6.7 % 0-[address] [facility] Neutrophil percentageOrdered By: Perico Norman on 01-04-2025 Neutrophils/100 WBC (Bld) 64.8 % 47-70 [facility] No Panel InformationOrdered By: Perico Norman on 01-04-2025 Negative < 200 ng/mL [facility] ESTRELLA [facility] Not entered [facility] 17 U/L <32 [facility] Osmolality, Serumon 01-05-20 25 OSMOLALITY,SER 292 mOsm/KG Normal 275-295 [facility] Comment on above: Performed By: #### L 700.6800, L503.6005, L500.3400, L501.9100, L500.2500, L501.2450, L505.5000, L501.6901, L501.7300, L501.5200, L100.0100 ####[facility] [address] [place], [place], [address] Platelet countOrdered By: Nadine Norman on 01-04-2025 Platelets (Bld) [#/Vol] 446 10*3/uL 150-450 [facility] Potassium measurement (mass/ volume)Ordered By: Perico Norman on 01-04-2025 Potassium (Unsp spec) [Mass/Vol] 3.1 mmol/L Low 3.3-5.1 [facility] ,Serum,hCG Quali.on 01-04-2025 HCG, SERUM QUAL Negative Normal [facility] Comment on above: Performed By: #### L 700.6800, L503.6005, L500.3400, L501.9100, L500.2500, L501.2450, L505.5000, L501.6901, L501.7300, L501.5200, L100.0100 ####[facility] [address] [place], [place], [address] RBC Auto (Bld) [#/Vol]Ordere d By: Perico Norman on 01-04-2025 RBC (Bld) [#/Vol] 4.47 10*6/uL 4.2-5.4 [facility] Screening urine fentanyl kedar surementOrdered By: Perico Norman on 01-04-2025 fentaNYL Screen Ql (U) Negative [facility] Serum beta-hCG test, qualita tiveOrdered By: Perico Norman on 01-04-2025 Beta HCG ( test) Ql Negative [facility] Serum creatinine measurement (mass/volume)Ordered By: Perico Norman on 01-04-2025 Creatinine [Mass/Vol] 0.93 mg/dL 0.70-1.20 [facility] Serum globulin measurementOr dered By: Perico Norman on 01-04-2025 Globulin (S) [Mass/Vol] 3.8 g/dL 2.2-4.[address] [facility] Serum glucose measurement (m ass/volume)Ordered By: Perico Norman on 01-04-2025 Glucose [Mass/Vol] 159 mg/dL High 70-99 [facility] Serum or plasma alanine jordan otransferase (ALT) measurementOrdered By: Perico Norman on 01-04-2025 ALT [Catalytic activity/Vol] 9 U/L <35 [facility] Serum or plasma albumin hussein urement (mass/volume)Ordered By: Perico Norman on 01-04-2025 Albumin [Mass/Vol] 4.2 g/dL 3.5-5.0 [facility] Serum or plasma alkaline bradley sphatase measurementOrdered By: Perico Norman on 01-04-2025 ALP [Catalytic activity/Vol] 70 U/L 35-104 [facility] Serum or plasma calcium hussein urement (mass/volume)Ordered By: Perico Norman on 01-04-2025 Calcium [Mass/Vol] 9.3 mg/dL 7.6-11.0 [facility] Serum or plasma ethanol hussein urement (mass/volume)Ordered By: Perico Nroman on 01-04-2025 Ethanol [Mass/Vol] mg/dL <10.1 [facility] Serum or plasma urea nitroge n measurement (mass/volume)Ordered By: Perico Norman on 01-04-2025 Urea nitrogen [Mass/Vol] 12 mg/dL 4-19 [facility] Sodium levelOrdered By: Geoffrey Norman on 01-04-2025 Sodium [Moles/Vol] 139 mmol/L 133-145 [facility] Total proteinOrdered By: Bakari Norman on 01-04-2025 Protein [Mass/Vol] 8.0 g/dL 5.9-8.4 [facility] Urine Drug Screen (VISTA)on 01-04-2025 AMPHETAMINES Negative Normal <1000 ng/mL [facility] Comment on above: Performed By: #### L 700.6800, L503.6005, L500.3400, L501.9100, L500.2500, L501.2450, L505.5000, L501.6901, L501.7300, L501.5200, L100.0100 ####[facility] [address] [place], [place], [phone] BARBITIURATES Negative Normal < 200 ng/mL [facility] Comment on above: Performed By: #### L 700.6800, L503.6005, L500.3400, L501.9100, L500.2500, L501.2450, L505.5000, L501.6901, L501.7300, L501.5200, L100.0100 ####[facility] [address] [place], [address] BENZODIAZIPINE Negative Normal < 200 ng/mL [facility] Comment on above: Performed By: #### L 700.6800, L503.6005, L500.3400, L501.9100, L500.2500, L501.2450, L505.5000, L501.6901, L501.7300, L501.5200, L100.0100 ####[facility] [address] [place], [place], [phone] BUP Ur Drug Scr Negative Normal < 200 ng/mL [facility] Comment on above: Performed By: #### L 700.6800, L503.6005, L500.3400, L501.9100, L500.2500, L501.2450, L505.5000, L501.6901, L501.7300, L501.5200, L100.0100 ####[facility] [address] [place], [address] COCAINE Negative Normal < 300 ng/mL [facility] Comment on above: Performed By: #### L 700.6800, L503.6005, L500.3400, L501.9100, L500.2500, L501.2450, L505.5000, L501.6901, L501.7300, L501.5200, L100.0100 ####[facility] [address] [place], [address] Fentanyl Negative Normal [facility] Comment on above: Performed By: #### L 700.6800, L503.6005, L500.3400, L501.9100, L500.2500, L501.2450, L505.5000, L501.6901, L501.7300, L501.5200, L100.0100 ####[facility] [address] [place], [address] METHADONE Negative Normal < 300 ng/mL [facility] Comment on above: Performed By: #### L 700.6800, L503.6005, L500.3400, L501.9100, L500.2500, L501.2450, L505.5000, L501.6901, L501.7300, L501.5200, L100.0100 ####[facility] [address] [place], [address] OPIATES Positive Normal < 300 ng/mL [facility] Comment on above: Result Comment: If c onfirmation testing is needed, a separate order will berequired to send out testing to the reference laboratory. Performed By: #### L 700.6800, L503.6005, L500.3400, L501.9100, L500.2500, L501.2450, L505.5000, L501.6901, L501.7300, L501.5200, L100.0100 ####[facility] [address] [place], [address] OXYCODONE Negative Normal < 100 ng/mL [facility] Comment on above: Performed By: #### L 700.6800, L503.6005, L500.3400, L501.9100, L500.2500, L501.2450, L505.5000, L501.6901, L501.7300, L501.5200, L100.0100 ####[facility] [address] [place], [place], [phone] PCP Negative Normal < 25 ng/mL [facility] Comment on above: Performed By: #### L 700.6800, L503.6005, L500.3400, L501.9100, L500.2500, L501.2450, L505.5000, L501.6901, L501.7300, L501.5200, L100.0100 ####[facility] [address] [place], [place], [phone] THC Negative Normal < 50 ng/mL [facility] Comment on above: Performed By: #### L 700.6800, L503.6005, L500.3400, L501.9100, L500.2500, L501.2450, L505.5000, L501.6901, L501.7300, L501.5200, L100.0100 ####[facility] [address] [place], [place], [phone] Urine phencyclidine (PCP) de tectionOrdered By: Perico Norman on 01-04-2025 Phencyclidine Ql (U) Negative < 25 ng/mL [facility] Venous Blood Gason Blood Gas Type ESTRELLA Normal [facility] Comment on above: Performed By: #### L 9000.0810 ####[facility] [address] [place], [place], [address] CO2 [Moles/Vol] 20 mmol/L Low 23-33 [facility] Comment on above: Performed By: #### L 9000.0810 ####[facility] [address] [place], [address] HCO3 (Bld) [Moles/Vol] 19 mmol/L Low 22-26 [facility] Comment on above: Performed By: #### L 9000.0810 ####[facility] [address] [place], [address] O2 Delivery Dev Not entered Normal [facility] Comment on above: Performed By: #### L 9000.0810 ####[facility] [address] [place], [address] SITE Not entered Normal [facility] Comment on above: Performed By: #### L 9000.0810 ####[facility] [address] [place], [address] VBG BE -4 mmol/L Low -1.0-3.5 [facility] Comment on above: Performed By: #### L 9000.0810 ####[facility] [address] [place], [address] VBG pCO2 23.6 mmHg Low 41-51 [facility] Comment on above: Performed By: #### L 9000.0810 ####[facility] [address] [place], [address] VBG pH 7.52 High 7.32-7.42 [facility] Comment on above: Performed By: #### L 9000.0810 ####[facility] [address] [place], [address] VBG PO2 49 mmHg High 25-40 [facility] Comment on above: Performed By: #### L 9000.0810 ####[facility] [address] [place], [address] VBG SO2 89 High 50-70 [facility] Comment on above: Performed By: #### L 9000.0810 ####[facility] [address] [place], [address] Venous blood base excess kedar surementOrdered By: Perico oNrman on 01-04-2025 Base excess Calc (BldV) [Moles/Vol] -4 mmol/L Low -1.0-3.5 [facility] Venous blood bicarbonate kedar surementOrdered By: Perico Norman on 01-04-2025 HCO3 (Bld) [Moles/Vol] 19 mmol/L Low 22-26 [facility] Venous blood pH measurementO rdered By: Perico Norman on 01-04-2025 pH (BldV) 7.52 [pH] High 7.32-7.42 [facility] Venous blood partial pressur e of carbon dioxide measurementOrdered By: Perico Norman on 01-04-2025 CO2 (BldV) [Partial pressure] 23.6 mm[Hg] Low 41-51 [facility] Venous blood partial pressur e of oxygen measurementOrdered By: Perico Norman on 01-04-2025 Oxygen (BldV) [Partial pressure] 49 mm[Hg] High 25-40 [facility] White blood cell (WBC) count Ordered By: Perico Norman on 01-04-2025 WBC (Bld) [#/Vol] 14.7 10*3/uL High 4.4-11.0 [facility] Absolute lymphocyte countOrd ered By: Poli Barfield on 01-02-2025 Lymphocytes Auto (Unsp spec) [#/Vol] 2.92 10*3/uL 0.83-4.51 [facility] Anion gap in Serum or Plasma Ordered By: Poli Barfield on 01-02-2025 Anion gap [Moles/Vol] 16 mmol/L High 5-15 [facility] Automated lymphocyte count a s percentage of total leukocytesOrdered By: Poli Barfield on 01-02-2025 Lymphocytes/100 WBC Auto (Unsp spec) 26.2 % 19-41 [facility] BUN/creatinine ratioOrdered By: Poli Barfield on 01-02-2025 Urea nitrogen/Creatinine [Mass ratio] 4.9 mg/mg Low 10-20 [facility] Basophil percentageOrdered B y: Poli Barfield on 01-02-2025 Basophils/100 WBC (Bld) 0.3 % 0-[address] [facility] Bedside Glucoseon 01-02-2025 FINGERSTICK GLU 142 mg/dL High 74-106 [facility] Comment on above: Result Comment: BULL SAMAYOA OF PATIENT CARE PER NURSING PROTOCOL Performed By: #### L 501.080 ####[facility] [address] [place], [address] Beta-Hydroxbytyrateon 2024 BETA-HYDROXYBUT 1.2 mmol/L High 0.0-0.3 [facility] Comment on above: Performed By: #### L 501.2450, L100.0100, L500.4050, L501.6901 ####[facility] [address] [place], [address] Beta-hydroxybutyrateOrdered By: Poli Barfield on 01-02-2025 Beta hydroxybutyrate [Mass/Vol] 1.2 mmol/L High 0.0-0.3 [facility] Bilirubin, totalOrdered By: Poli Barfield on 01-02-2025 Bilirubin [Mass/Vol] 0.51 mg/dL 0.00-1.30 [facility] CBC W/Diff, Automatedon 12-11 Absolute Lymph 2.92 X10 3/uL Normal 0.83-4.51 [facility] Comment on above: Performed By: #### L 501.2450, L100.0100, L500.4050, L501.6901 ####[facility] [address] [place], [address] Absolute Neut 7.3 X10 3/uL Normal 2.0-7.7 [facility] Comment on above: Performed By: #### L 501.2450, L100.0100, L500.4050, L501.6901 ####[facility] [address] [place], [address] Basophils/100 WBC (Bld) 0.3 % Normal 0-[address] [facility] Comment on above: Performed By: #### L 501.2450, L100.0100, L500.4050, L501.6901 ####[facility] [address] [place], [address] Eosinophils/100 WBC (Bld) 0.1 % Normal 0-5 [facility] Comment on above: Performed By: #### L 501.2450, L100.0100, L500.4050, L501.6901 ####[facility] [address] [place], [address] Erythrocyte distribution width (RBC) [Ratio] 14.3 % Normal 11.6-14.6 [facility] Comment on above: Performed By: #### L 501.2450, L100.0100, L500.4050, L501.6901 ####[facility] [address] [place], [address] Hematocrit (Bld) [Volume fraction] 36.1 % Low 37-47 [facility] Comment on above: Performed By: #### L 501.2450, L100.0100, L500.4050, L501.6901 ####[facility] [address] [place], [address] Hemoglobin (Bld) [Mass/Vol] 12.2 g/dL Normal 12.0-15.0 [facility] Comment on above: Performed By: #### L 501.2450, L100.0100, L500.4050, L501.6901 ####[facility] [address] [place], [address] IG% 0.800 Normal 0.0-0.9 [facility] Comment on above: Result Comment: IG% - Immature Granulocytes (promyelocytes, myelocytes andmetamyelocytes) > 1% indicates that a LEFT SHIFT is Present. Performed By: #### L 501.2450, L100.0100, L500.4050, L501.6901 ####[facility] [address] [place], [address] Lymphocytes/100 WBC (Bld) 26.2 % Normal 19-41 [facility] Comment on above: Performed By: #### L 501.2450, L100.0100, L500.4050, L501.6901 ####[facility] [address] [place], [address] MCH (RBC) [Entitic mass] 27.7 pg Normal 27.0-32.0 [facility] Comment on above: Performed By: #### L 501.2450, L100.0100, L500.4050, L501.6901 ####[facility] [address] [place], [address] MCHC (RBC) [Mass/Vol] 33.8 g/dL Normal 32-36 [facility] Comment on above: Performed By: #### L 501.2450, L100.0100, L500.4050, L501.6901 ####[facility] [address] [place], [address] MCV (RBC) [Entitic vol] 82.0 fL Normal 81-[address] [facility] Comment on above: Performed By: #### L 501.2450, L100.0100, L500.4050, L501.6901 ####[facility] [address] [place], [address] Monocytes/100 WBC (Bld) 6.9 % Normal 0-[address] [facility] Comment on above: Performed By: #### L 501.2450, L100.0100, L500.4050, L501.6901 ####[facility] [address] [place], [address] Neutrophils/100 WBC (Bld) 65.7 % Normal 47-70 [facility] Comment on above: Performed By: #### L 501.2450, L100.0100, L500.4050, L501.6901 ####[facility] [address] [place], [address] Nucleated RBC (Bld) [#/Vol] 0 10*3/uL Normal 0-5 [facility] Comment on above: Performed By: #### L 501.2450, L100.0100, L500.4050, L501.6901 ####[facility] [address] [place], [address] Platelet mean volume (Bld) [Entitic vol] 9.4 fL Normal 6.2-12.0 [facility] Comment on above: Performed By: #### L 501.2450, L100.0100, L500.4050, L501.6901 ####[facility] [address] [place], [address] Platelets (Bld) [#/Vol] 403 10*3/uL Normal 150-450 [facility] Comment on above: Performed By: #### L 501.2450, L100.0100, L500.4050, L501.6901 ####[facility] [address] [place], [address] RBC (Bld) [#/Vol] 4.40 10*6/uL Normal 4.2-5.4 [facility] Comment on above: Performed By: #### L 501.2450, L100.0100, L500.4050, L501.6901 ####[facility] [address] [place], [address] RDW SD 41.6 fl Normal 35.1-43.9 [facility] Comment on above: Performed By: #### L 501.2450, L100.0100, L500.4050, L501.6901 ####[facility] [address] [place], [address] WBC (Bld) [#/Vol] 11.2 10*3/uL High 4.4-11.0 [facility] Comment on above: Performed By: #### L 501.2450, L100.0100, L500.4050, L501.6901 ####[facility] [address] [place], [address] Carbon dioxide, total [Moles /volume] in Central venous bloodOrdered By: Poli Barfield on 01-02-2025 CO2 [Moles/Vol] 18.1 mmol/L Low 21.0-32.0 [facility] Chloride assayOrdered By: Demetrio Barfield on 01-02-2025 Chloride [Moles/Vol] 104 mmol/L 98-108 [facility] Comprehensive Metabolic Prof ilon 01-02-2025 Albumin [Mass/Vol] 4.0 g/dL Normal 3.5-5.0 [facility] Comment on above: Performed By: #### L 501.2450, L100.0100, L500.4050, L501.6901 ####[facility] [address] [place], [address] Albumin/Globulin [Mass ratio] 1.1 {ratio} Normal 0.9-2.4 [facility] Comment on above: Performed By: #### L 501.2450, L100.0100, L500.4050, L501.6901 ####[facility] [address] [place], [address] ALK PHOS 72 U/L Normal 35-104 [facility] Comment on above: Performed By: #### L 501.2450, L100.0100, L500.4050, L501.6901 ####[facility] [address] [place], [address] ALT [Catalytic activity/Vol] 13 U/L Normal <=34 [facility] Comment on above: Performed By: #### L 501.2450, L100.0100, L500.4050, L501.6901 ####[facility] [address] [place], [address] AST [Catalytic activity/Vol] 17 U/L Normal <=31 [facility] Comment on above: Performed By: #### L 501.2450, L100.0100, L500.4050, L501.6901 ####[facility] [address] [place], [address] Bilirubin [Mass/Vol] 0.51 mg/dL Normal 0.00-1.30 [facility] Comment on above: Performed By: #### L 501.2450, L100.0100, L500.4050, L501.6901 ####[facility] [address] [place], [address] BUN/CRE 4.9 RATIO Low 10-20 [facility] Comment on above: Performed By: #### L 501.2450, L100.0100, L500.4050, L501.6901 ####[facility] [address] [place], [address] Calcium [Mass/Vol] 9.4 mg/dL Normal 7.6-11.0 [facility] Comment on above: Performed By: #### L 501.2450, L100.0100, L500.4050, L501.6901 ####[facility] [address] [place], [address] Chloride [Moles/Vol] 104 mmol/L Normal 98-108 [facility] Comment on above: Performed By: #### L 501.2450, L100.0100, L500.4050, L501.6901 ####[facility] [address] [place], [address] CO2 [Moles/Vol] 18.1 mmol/L Low 21.0-32.0 [facility] Comment on above: Performed By: #### L 501.2450, L100.0100, L500.4050, L501.6901 ####[facility] [address] [place], [address] Creatinine [Mass/Vol] 0.91 mg/dL Normal 0.70-1.20 [facility] Comment on above: Performed By: #### L 501.2450, L100.0100, L500.4050, L501.6901 ####[facility] [address] [place], [address] ECRCL 109.85 ml/min Normal 50-250 [facility] Comment on above: Performed By: #### L 501.2450, L100.0100, L500.4050, L501.6901 ####[facility] [address] [place], [address] GAP 16 High 5-15 [facility] Comment on above: Performed By: #### L 501.2450, L100.0100, L500.4050, L501.6901 ####[facility] [address] [place], [address] GFR/1.73 sq M.predicted among non-blacks MDRD (S/P/Bld) [Vol rate/Area] 86 mL/min/{1.73_m2} Normal >60 [facility] Comment on above: Result Comment: mL/m in/1.73m2 CKD-EPI Creatinine Equation (2020) Performed By: #### L 501.2450, L100.0100, L500.4050, L501.6901 ####[facility] [address] [place], [address] Globulin (S) [Mass/Vol] 3.8 g/dL Normal 2.2-4.[address] [facility] Comment on above: Performed By: #### L 501.2450, L100.0100, L500.4050, [id number] ####[facility] [address] [place], [address] Glucose [Mass/Vol] 135 mg/dL High 70-99 [facility] Comment on above: Performed By: #### L 501.2450, L100.0100, L500.4050, [id number] ####[facility] [address] [place], [address] Potassium [Moles/Vol] 3.4 mmol/L Normal 3.3-5.1 [facility] Comment on above: Performed By: #### L 501.2450, L100.0100, L500.4050, [id number] ####[facility] [address] [place], [address] Sodium [Moles/Vol] 139 mmol/L Normal 133-145 [facility] Comment on above: Performed By: #### L 501.2450, L100.0100, [id number], [id number] ####[facility] [address] [place], [address] T PROT 7.8 g/dL Normal 5.9-8.4 [facility] Comment on above: Performed By: #### L 501.2450, L100.0100, L500.4050, [id number] ####[facility] [address] [place], [address] Urea nitrogen [Mass/Vol] 5 mg/dL Normal 4-19 [facility] Comment on above: Performed By: #### L 501.2450, L100.0100, L500.4050, [id number] ####[facility] [address] [place], [address] Emergency Department Summary on 01-02-2025 Emergency Department Summary Normal [facility] Eosinophil percentageOrdered By: Poli Barfield on 01-02-2025 Eosinophils/100 WBC (Bld) 0.1 % 0-5 [facility] Erythrocyte distribution wid th ratioOrdered By: Poli Barfield on 01-02-2025 Erythrocyte distribution width (RBC) [Ratio] 14.3 % 11.6-14.6 [facility] Erythrocyte distribution wid th standard deviationOrdered By: Poli Barfield on 01-02-2025 Erythrocyte distribution width (RBC) [Ratio] 41.6 fl 35.1-43.9 [facility] Glomerular filtration rate ( GFR) estimation/1.73 sq m using serum, plasma, or whole bOrdered By: Poli Barfield on 01-02-2025 GFR/1.73 sq M.predicted among non-blacks MDRD (S/P/Bld) [Vol rate/Area] 86 mL/min/{1.73_m2} >60 [facility] Glucose measurement at [facility] deOrdered By: Poli Barfield on 01-02-2025 Glucose [Mass/Vol] 142 mg/dL High 74-106 [facility] Hematocrit Auto (Bld) [Volum e fraction]Ordered By: Poli Barfield on 01-02-2025 Hematocrit (Bld) [Volume fraction] 36.1 % Low 37-47 [facility] Hemoglobin measurementOrdere d By: Poli Barfield on 01-02-2025 Hemoglobin (Bld) [Mass/Vol] 12.2 g/dL 12.0-15.0 [facility] Immature granulocytes/100 WB C Auto (Bld)Ordered By: Poli Barfield on 01-02-2025 Immature granulocytes/100 WBC (Bld) 0.800 % 0.0-0.9 [facility] Lipaseon 01-02-2025 Lipase [Catalytic activity/Vol] 27 U/L Normal 13-75 [facility] Comment on above: Result Comment: Adam faulkner note:LIPASE revised reference range effective 22.New Lipase methodology. Expected to produce lower valuesthan the previous assay method.NEW Reference Range: 13 - 75 U/L Performed By: #### L 501.2450, L100.0100, L500.4050, L501.6901 ####[facility] [address] [place], [address] MCV (mean corpuscular volume ) determinationOrdered By: Poli Barfield on 01-02-2025 MCV (RBC) [Entitic vol] 82.0 fL 81-[address] [facility] Mean corpuscular hemoglobin (MCH) determinationOrdered By: Poli Barfield on 01-02-2025 MCH (RBC) [Entitic mass] 27.7 pg 27.0-32.0 [facility] Monocyte percentageOrdered B y: Poli Barfield on 01-02-2025 Monocytes/100 WBC (Bld) 6.9 % 0-[address] [facility] Neutrophil percentageOrdered By: Poli Barfield on 01-02-2025 Neutrophils/100 WBC (Bld) 65.7 % 47-70 [facility] No Panel InformationOrdered By: Poli Barfield on 01-02-2025 17 U/L <32 [facility] Platelet countOrdered By: Demetrio Barfield on 01-02-2025 Platelets (Bld) [#/Vol] 403 10*3/uL 150-450 [facility] Potassium measurement (mass/ volume)Ordered By: Poli Barfield on 01-02-2025 Potassium (Unsp spec) [Mass/Vol] 3.4 mmol/L 3.3-5.1 [facility] RBC Auto (Bld) [#/Vol]Ordere d By: Poli Barfield on 01-02-2025 RBC (Bld) [#/Vol] 4.40 10*6/uL 4.2-5.4 [facility] Serum creatinine measurement (mass/volume)Ordered By: Poli Barfield on 01-02-2025 Creatinine [Mass/Vol] 0.91 mg/dL 0.70-1.20 [facility] Serum globulin measurementOr dered By: Poli Barfield on 01-02-2025 Globulin (S) [Mass/Vol] 3.8 g/dL 2.2-4.2 [facility] Serum glucose measurement (m ass/volume)Ordered By: Poli Barfield on 01-02-2025 Glucose [Mass/Vol] 135 mg/dL High 70-99 [facility] Serum or plasma alanine jordan otransferase (ALT) measurementOrdered By: Poli Barfield on 01-02-2025 ALT [Catalytic activity/Vol] 13 U/L <35 [facility] Serum or plasma albumin hussein urement (mass/volume)Ordered By: Poli Barfield on 01-02-2025 Albumin [Mass/Vol] 4.0 g/dL 3.5-5.0 [facility] Serum or plasma albumin/glob ulin mass ratioOrdered By: Poli Barfield on 01-02-2025 Albumin/Globulin [Mass ratio] 1.1 {ratio} 0.9-2.4 [facility] Serum or plasma alkaline bradley sphatase measurementOrdered By: Poli Barfield on 01-02-2025 ALP [Catalytic activity/Vol] 72 U/L 35-104 [facility] Serum or plasma calcium hussein urement (mass/volume)Ordered By: Poli Barfield on 01-02-2025 Calcium [Mass/Vol] 9.4 mg/dL 7.6-11.0 [facility] Serum or plasma urea nitroge n measurement (mass/volume)Ordered By: Poli Barfield on 01-02-2025 Urea nitrogen [Mass/Vol] 5 mg/dL 4- [facility] Sodium levelOrdered By: Poli Barfield on 01-02-2025 Sodium [Moles/Vol] 139 mmol/L 133-145 [facility] Total proteinOrdered By: Devon Barfield on 01-02-2025 Protein [Mass/Vol] 7.8 g/dL 5.9-8.4 [facility] White blood cell (WBC) count Ordered By: Poli Barfield on 01-02-2025 WBC (Bld) [#/Vol] 11.2 10*3/uL High 4.4-11.0 [facility] Anion gap in Serum or Plasma Ordered By: Dewayne Duff on 01-01-2025 Anion gap [Moles/Vol] 9 mmol/L 5-15 [facility] BUN/creatinine ratioOrdered By: Dewayne Duff on 01-01-2025 Urea nitrogen/Creatinine [Mass ratio] 6.1 mg/mg Low 10-20 [facility] Basic Metabolic Profile (BMP )on 01-01-2025 BUN Normal 4- [facility] Comment on above: Order Comment: Call with results STAT Result Comment: Canc elled via OM: MD Ordered Performed By: #### L 500.2500 ####[facility] [address] [place], [address] BUN/CRE Normal 10-20 [facility] Comment on above: Order Comment: Call MD with results STAT Result Comment: Canc elled via OM: MD Ordered Performed By: #### L 500.2500 ####[facility] [address] [place], [address] Calcium Normal 7.6-11.0 [facility] Comment on above: Order Comment: Call MD with results STAT Result Comment: Canc elled via OM: MD Ordered Performed By: #### L 500.2500 ####[facility] [address] [place], [address] CL Normal 98-108 [facility] Comment on above: Order Comment: Call MD with results STAT Result Comment: Canc elled via OM: MD Ordered Performed By: #### L 500.2500 ####[facility] [address] [place], [address] CO2 Normal 21.0-32.0 [facility] Comment on above: Order Comment: Call MD with results STAT Result Comment: Canc elled via OM: MD Ordered Performed By: #### L 500.2500 ####[facility] [address] [place], [address] CREAT,SERUM Normal 0.70-1.20 [facility] Comment on above: Order Comment: Call MD with results STAT Result Comment: Canc elled via OM: MD Ordered Performed By: #### L 500.2500 ####[facility] [address] [place], [address] eGFR Normal >60 [facility] Comment on above: Order Comment: Call MD with results STAT Result Comment: Canc elled via OM: MD Ordered Performed By: #### L 500.2500 ####[facility] [address] [place], [address] GAP Normal 5-15 [facility] Comment on above: Order Comment: Call MD with results STAT Result Comment: Canc elled via OM: MD Ordered Performed By: #### L 500.2500 ####[facility] [address] [place], [address] GLU Normal 70-99 [facility] Comment on above: Order Comment: Call MD with results STAT Result Comment: Canc elled via OM: MD Ordered Performed By: #### L 500.2500 ####[facility] [address] [place], [address] Potassium Normal 3.3-5.1 [facility] Comment on above: Order Comment: Call MD with results STAT Result Comment: Canc elled via OM: MD Ordered Performed By: #### L 500.2500 ####[facility] [address] [place], [address] Basic Metabolic Profile (BMP) Normal 133-145 [facility] Comment on above: Order Comment: Call MD with results STAT Result Comment: Canc elled via OM: MD Ordered Performed By: #### L 500.2500 ####[facility] [address] [place], [address] BUN Normal 4-19 [facility] Comment on above: Order Comment: Call MD with results STAT Result Comment: Canc elled via OM: MD Ordered Performed By: #### L 500.2500 ####[facility] [address] [place], [address] BUN/CRE Normal 10-20 [facility] Comment on above: Order Comment: Call MD with results STAT Result Comment: Canc elled via OM: MD Ordered Performed By: #### L 500.2500 ####[facility] [address] [place], [address] Calcium Normal 7.6-11.0 [facility] Comment on above: Order Comment: Call MD with results STAT Result Comment: Canc elled via OM: MD Ordered Performed By: #### L 500.2500 ####[facility] [address] [place], [address] CL Normal 98-108 [facility] Comment on above: Order Comment: Call MD with results STAT Result Comment: Canc elled via OM: MD Ordered Performed By: #### L 500.2500 ####[facility] [address] [place], [address] CO2 Normal 21.0-32.0 [facility] Comment on above: Order Comment: Call MD with results STAT Result Comment: Canc elled via OM: MD Ordered Performed By: #### L 500.2500 ####[facility] [address] [place], [address] CREAT,SERUM Normal 0.70-1.20 [facility] Comment on above: Order Comment: Call MD with results STAT Result Comment: Canc elled via OM: MD Ordered Performed By: #### L 500.2500 ####[facility] [address] [place], [address] eGFR Normal >60 [facility] Comment on above: Order Comment: Call MD with results STAT Result Comment: Canc elled via OM: MD Ordered Performed By: #### L 500.2500 ####[facility] [address] [place], [address] GAP Normal 5-15 [facility] Comment on above: Order Comment: Call MD with results STAT Result Comment: Canc elled via OM: MD Ordered Performed By: #### L 500.2500 ####[facility] [address] [place], [address] GLU Normal 70-99 [facility] Comment on above: Order Comment: Call MD with results STAT Result Comment: Canc elled via OM: MD Ordered Performed By: #### L 500.2500 ####[facility] [address] [place], [address] Potassium Normal 3.3-5.1 [facility] Comment on above: Order Comment: Call MD with results STAT Result Comment: Canc elled via OM: MD Ordered Performed By: #### L 500.2500 ####[facility] [address] [place], [address] Basic Metabolic Profile (BMP) Normal 133-145 [facility] Comment on above: Order Comment: Call MD with results STAT Result Comment: Canc elled via OM: MD Ordered Performed By: #### L 500.2500 ####[facility] [address] [place], [address] BUN Normal 4-19 [facility] Comment on above: Order Comment: Call MD with results STAT Result Comment: Canc elled via OM: MD Ordered Performed By: #### L 500.2500 ####[facility] [address] [place], [address] BUN/CRE Normal 10-20 [facility] Comment on above: Order Comment: Call MD with results STAT Result Comment: Canc elled via OM: MD Ordered Performed By: #### L 500.2500 ####[facility] [address] [place], [address] Calcium Normal 7.6-11.0 [facility] Comment on above: Order Comment: Call MD with results STAT Result Comment: Canc elled via OM: MD Ordered Performed By: #### L 500.2500 ####[facility] [address] [place], [address] CL Normal 98-108 [facility] Comment on above: Order Comment: Call MD with results STAT Result Comment: Canc elled via OM: MD Ordered Performed By: #### L 500.2500 ####[facility] [address] [place], [address] CO2 Normal 21.0-32.0 [facility] Comment on above: Order Comment: Call MD with results STAT Result Comment: Canc elled via OM: MD Ordered Performed By: #### L 500.2500 ####[facility] [address] [place], [address] CREAT,SERUM Normal 0.70-1.20 [facility] Comment on above: Order Comment: Call MD with results STAT Result Comment: Canc elled via OM: MD Ordered Performed By: #### L 500.2500 ####[facility] [address] [place], [address] eGFR Normal >60 [facility] Comment on above: Order Comment: Call MD with results STAT Result Comment: Canc elled via OM: MD Ordered Performed By: #### L 500.2500 ####[facility] [address] [place], [address] GAP Normal 5-15 [facility] Comment on above: Order Comment: Call MD with results STAT Result Comment: Canc elled via OM: MD Ordered Performed By: #### L 500.2500 ####[facility] [address] [place], [address] GLU Normal 70-99 [facility] Comment on above: Order Comment: Call MD with results STAT Result Comment: Canc elled via OM: MD Ordered Performed By: #### L 500.2500 ####[facility] [address] [place], [address] Potassium Normal 3.3-5.1 [facility] Comment on above: Order Comment: Call MD with results STAT Result Comment: Canc elled via OM: MD Ordered Performed By: #### L 500.2500 ####[facility] [address] [place], [address] Basic Metabolic Profile (BMP) Normal 133-145 [facility] Comment on above: Order Comment: Call MD with results STAT Result Comment: Canc elled via OM: MD Ordered Performed By: #### L 500.2500 ####[facility] [address] [place], [address] BUN Normal 4-19 [facility] Comment on above: Order Comment: Call MD with results STAT Result Comment: Canc elled via OM: MD Ordered Performed By: #### L 500.2500 ####[facility] [address] [place], [address] BUN/CRE Normal 10-20 [facility] Comment on above: Order Comment: Call MD with results STAT Result Comment: Canc elled via OM: MD Ordered Performed By: #### L 500.2500 ####[facility] [address] [place], [address] Calcium Normal 7.6-11.0 [facility] Comment on above: Order Comment: Call MD with results STAT Result Comment: Canc elled via OM: MD Ordered Performed By: #### L 500.2500 ####[facility] [address] [place], [address] CL Normal 98-108 [facility] Comment on above: Order Comment: Call MD with results STAT Result Comment: Canc elled via OM: MD Ordered Performed By: #### L 500.2500 ####[facility] [address] [place], [address] CO2 Normal 21.0-32.0 [facility] Comment on above: Order Comment: Call MD with results STAT Result Comment: Canc elled via OM: MD Ordered Performed By: #### L 500.2500 ####[facility] [address] [place], [address] CREAT,SERUM Normal 0.70-1.20 [facility] Comment on above: Order Comment: Call MD with results STAT Result Comment: Canc elled via OM: MD Ordered Performed By: #### L 500.2500 ####[facility] [address] [place], [address] eGFR Normal >60 [facility] Comment on above: Order Comment: Call MD with results STAT Result Comment: Canc elled via OM: MD Ordered Performed By: #### L 500.2500 ####[facility] [address] [place], [address] GAP Normal 5-15 [facility] Comment on above: Order Comment: Call MD with results STAT Result Comment: Canc elled via OM: MD Ordered Performed By: #### L 500.2500 ####[facility] [address] [place], [address] GLU Normal 70-99 [facility] Comment on above: Order Comment: Call MD with results STAT Result Comment: Canc elled via OM: MD Ordered Performed By: #### L 500.2500 ####[facility] [address] [place], [address] Potassium Normal 3.3-5.1 [facility] Comment on above: Order Comment: Call MD with results STAT Result Comment: Canc elled via OM: MD Ordered Performed By: #### L 500.2500 ####[facility] [address] [place], [address] Basic Metabolic Profile (BMP) Normal 133-145 [facility] Comment on above: Order Comment: Call MD with results STAT Result Comment: Canc elled via OM: MD Ordered Performed By: #### L 500.2500 ####[facility] [address] [place], [address] BUN/CRE 6.1 RATIO Low 10-20 [facility] Comment on above: Performed By: #### L 500.2500 ####[facility] [address] [place], [address] Calcium [Mass/Vol] 7.9 mg/dL Normal 7.6-11.0 [facility] Comment on above: Performed By: #### L 500.2500 ####[facility] [address] [place], [address] Chloride [Moles/Vol] 111 mmol/L High 98-108 [facility] Comment on above: Performed By: #### L 500.2500 ####[facility] [address] [place], [address] CO2 [Moles/Vol] 20.1 mmol/L Low 21.0-32.0 [facility] Comment on above: Performed By: #### L 500.2500 ####[facility] [address], [address] Creatinine [Mass/Vol] 0.76 mg/dL Normal 0.70-1.20 [facility] Comment on above: Performed By: #### L 500.2500 ####[facility] [address], [address] ECRCL 133.37 ml/min Normal 50-250 [facility] Comment on above: Performed By: #### L 500.2500 ####[facility] [address], [address] GAP 9 Normal 5-15 [facility] Comment on above: Performed By: #### L 500.2500 ####[facility] [address] [place], [address] GFR/1.73 sq M.predicted among non-blacks MDRD (S/P/Bld) [Vol rate/Area] 107 mL/min/{1.73_m2} Normal >60 [facility] Comment on above: Result Comment: mL/m in/1.73m2 CKD-EPI Creatinine Equation (2020) Performed By: #### L 500.2500 ####[facility] [address] [place], [address] Glucose [Mass/Vol] 127 mg/dL High 70-99 [facility] Comment on above: Performed By: #### L 500.2500 ####[facility] [address], [address] Potassium [Moles/Vol] 3.9 mmol/L Normal 3.3-5.1 [facility] Comment on above: Performed By: #### L 500.2500 ####[facility] [address] [place], [address] Sodium [Moles/Vol] 140 mmol/L Normal 133-145 [facility] Comment on above: Performed By: #### L 500.2500 ####[facility] [address] [place], [address] Urea nitrogen [Mass/Vol] 5 mg/dL Normal 4-19 [facility] Comment on above: Performed By: #### L 500.2500 ####[facility] [address] [place], [address] BUN/CRE 6.5 RATIO Low 10-20 [facility] Comment on above: Order Comment: Call MD with results STAT Performed By: #### L 500.2500 ####[facility] [address] [place], [address] Calcium [Mass/Vol] 8.3 mg/dL Normal 7.6-11.0 [facility] Comment on above: Order Comment: Call MD with results STAT Performed By: #### L 500.2500 ####[facility] [address] [place], [address] Chloride [Moles/Vol] 109 mmol/L High 98-108 [facility] Comment on above: Order Comment: Call MD with results STAT Performed By: #### L 500.2500 ####[facility] [address] [place], [address] CO2 [Moles/Vol] 20.4 mmol/L Low 21.0-32.0 [facility] Comment on above: Order Comment: Call MD with results STAT Performed By: #### L 500.2500 ####[facility] [address] [place], [address] Creatinine [Mass/Vol] 0.78 mg/dL Normal 0.70-1.20 [facility] Comment on above: Order Comment: Call MD with results STAT Performed By: #### L 500.2500 ####[facility] [address] [place], [address] ECRCL 129.95 ml/min Normal 50-250 [facility] Comment on above: Order Comment: Call MD with results STAT Performed By: #### L 500.2500 ####[facility] [address] [place], [address] GAP 11 Normal 5-15 [facility] Comment on above: Order Comment: Call MD with results STAT Performed By: #### L 500.2500 ####[facility] [address] [place], [address] GFR/1.73 sq M.predicted among non-blacks MDRD (S/P/Bld) [Vol rate/Area] 103 mL/min/{1.73_m2} Normal >60 [facility] Comment on above: Order Comment: Call MD with results STAT Result Comment: mL/m in/1.73m2 CKD-EPI Creatinine Equation (2020) Performed By: #### L 500.2500 ####[facility] [address] [place], [address] Glucose [Mass/Vol] 71 mg/dL Normal 70-99 [facility] Comment on above: Order Comment: Call MD with results STAT Performed By: #### L 500.2500 ####[facility] [address] [place], [address] Potassium [Moles/Vol] 3.4 mmol/L Normal 3.3-5.1 [facility] Comment on above: Order Comment: Call MD with results STAT Performed By: #### L 500.2500 ####[facility] [address] [place], [address] Sodium [Moles/Vol] 141 mmol/L Normal 133-145 [facility] Comment on above: Order Comment: Call MD with results STAT Performed By: #### L 500.2500 ####[facility] [address] [place], [address] Urea nitrogen [Mass/Vol] 5 mg/dL Normal 4-19 [facility] Comment on above: Order Comment: Call MD with results STAT Performed By: #### L 500.2500 ####[facility] [address] [place], [address] BUN/CRE 7.2 RATIO Low 10-20 [facility] Comment on above: Order Comment: Call MD with results STAT Performed By: #### L 500.2500 ####[facility] [address] [place], [address] Calcium [Mass/Vol] 8.2 mg/dL Normal 7.6-11.0 [facility] Comment on above: Order Comment: Call MD with results STAT Performed By: #### L 500.2500 ####[facility] [address] [place], [address] Chloride [Moles/Vol] 108 mmol/L Normal 98-108 [facility] Comment on above: Order Comment: Call MD with results STAT Performed By: #### L 500.2500 ####[facility] [address] [place], [address] CO2 [Moles/Vol] 19.1 mmol/L Low 21.0-32.0 [facility] Comment on above: Order Comment: Call MD with results STAT Performed By: #### L 500.2500 ####[facility] [address] [place], [address] Creatinine [Mass/Vol] 0.84 mg/dL Normal 0.70-1.20 [facility] Comment on above: Order Comment: Call MD with results STAT Performed By: #### L 500.2500 ####[facility] [address] [place], [address] ECRCL 120.61 ml/min Normal 50-250 [facility] Comment on above: Order Comment: Call MD with results STAT Performed By: #### L 500.2500 ####[facility] [address] [place], [address] GAP 13 Normal 5-15 [facility] Comment on above: Order Comment: Call MD with results STAT Performed By: #### L 500.2500 ####[facility] [address] [place], [address] GFR/1.73 sq M.predicted among non-blacks MDRD (S/P/Bld) [Vol rate/Area] 94 mL/min/{1.73_m2} Normal >60 [facility] Comment on above: Order Comment: Call MD with results STAT Result Comment: mL/m in/1.73m2 CKD-EPI Creatinine Equation (2020) Performed By: #### L 500.2500 ####[facility] [address] [place], [address] Glucose [Mass/Vol] 189 mg/dL High 70-99 [facility] Comment on above: Order Comment: Call MD with results STAT Performed By: #### L 500.2500 ####[facility] [address] [place], [address] Potassium [Moles/Vol] 3.7 mmol/L Normal 3.3-5.1 [facility] Comment on above: Order Comment: Call MD with results STAT Performed By: #### L 500.2500 ####[facility] [address] [place], [address] Sodium [Moles/Vol] 139 mmol/L Normal 133-145 [facility] Comment on above: Order Comment: Call MD with results STAT Performed By: #### L 500.2500 ####[facility] [address] [place], [address] Urea nitrogen [Mass/Vol] 6 mg/dL Normal 4-19 [facility] Comment on above: Order Comment: Call MD with results STAT Performed By: #### L 500.2500 ####[facility] [address] [place], [address] Bedside Glucoseon 01-01-2025 FINGER[facility]ICK GLU 113 mg/dL High 74-106 [facility] Comment on above: Result Comment: BULL GEMENT OF PATIENT CARE PER NURSING PROTOCOL Performed By: #### L 501.080 ####[facility] [address], [address] FINGERSTICK GLU 119 mg/dL High 74-106 [facility] Comment on above: Result Comment: BULL GEMENT OF PATIENT CARE PER NURSING PROTOCOL Performed By: #### L 501.080 ####[facility] [facility] [address] [place], [address] FINGERSTICK GLU 104 mg/dL Normal 74-106 [facility] Comment on above: Result Comment: BULL GEMENT OF PATIENT CARE PER NURSING PROTOCOL Performed By: #### L 501.080 ####[facility] [address] [place], [address] FINGERSTICK GLU 110 mg/dL High 74-106 [facility] Comment on above: Result Comment: BULL GEMENT OF PATIENT CARE PER NURSING PROTOCOL Performed By: #### L 501.080 ####[facility] [address] [place], [address] FINGERSTICK GLU 98 mg/dL Normal 74-106 [facility] Comment on above: Result Comment: BULL GEMENT OF PATIENT CARE PER NURSING PROTOCOL Performed By: #### L 501.080 ####[facility] [address] [place], [address] FINGERSTICK GLU 62 mg/dL Low 74-106 [facility] Comment on above: Result Comment: BULL GEMENT OF PATIENT CARE PER NURSING PROTOCOL Performed By: #### L 501.080 ####[facility] [address] [place], [address] FINGERSTICK GLU 112 mg/dL High 74-106 [facility] Comment on above: Result Comment: BULL GEMENT OF PATIENT CARE PER NURSING PROTOCOL Performed By: #### L 501.080 ####[facility] [address] [place], [address] FINGERSTICK GLU 134 mg/dL High 74-106 [facility] Comment on above: Result Comment: BULL GEMENT OF PATIENT CARE PER NURSING PROTOCOL Performed By: #### L 501.080 ####[facility] [address] [place], [address] FINGERSTICK GLU 144 mg/dL High 74-106 [facility] Comment on above: Result Comment: BULL GEMENT OF PATIENT CARE PER NURSING PROTOCOL Performed By: #### L 501.080 ####[facility] [address] [place], [address] FINGERSTICK GLU 179 mg/dL High 74-106 [facility] Comment on above: Result Comment: BULL GEMENT OF PATIENT CARE PER NURSING PROTOCOL Performed By: #### L 501.080 ####[facility] [address] [place], [address] Beta-Hydroxbytyrateon 2024 BETA-HYDROXYBUT 0.0 mmol/L Normal 0.0-0.3 [facility] Comment on above: Performed By: #### L 501.6901 ####[facility] [address] [place], [address] Beta-hydroxybutyrateOrdered By: Dewayne Duff on 01-01-2025 Beta hydroxybutyrate [Mass/Vol] 0.0 mmol/L 0.0-0.3 [facility] CO2 (BldV) [Moles/Vol]Ordere d By: Dewayne Duff on 01-01-2025 CO2 [Moles/Vol] 23 mmol/L 23-33 [facility] Carbon dioxide, total [Moles /volume] in Central venous bloodOrdered By: Dewayne Duff on 01-01-2025 CO2 [Moles/Vol] 20.1 mmol/L Low 21.0-32.0 [facility] Chloride assayOrdered By: Gaurang Duff on 01-01-2025 Chloride [Moles/Vol] 111 mmol/L High 98-108 [facility] Discharge Instructionon 12-11 Discharge Instruction Normal [facility] Glomerular filtration rate ( GFR) estimation/1.73 sq m using serum, plasma, or whole bOrdered By: Dewayne Duff on 01-01-2025 GFR/1.73 sq M.predicted among non-blacks MDRD (S/P/Bld) [Vol rate/Area] 107 mL/min/{1.73_m2} >60 [facility] Glucose measurement at [facility] deOrdered By: Frantz Coulter on 01-01-2025 Glucose [Mass/Vol] 113 mg/dL High 74-106 [facility] No Panel InformationOrdered By: Dewayne Duff on 01-01-2025 ESTRELLA [facility] Not entered [facility] Potassium measurement (mass/ volume)Ordered By: Dewayne Duff on 01-01-2025 Potassium (Unsp spec) [Mass/Vol] 3.9 mmol/L 3.3-5.1 [facility] Serum creatinine measurement (mass/volume)Ordered By: Dewayne Duff on 01-01-2025 Creatinine [Mass/Vol] 0.76 mg/dL 0.70-1.20 [facility] Serum glucose measurement (m ass/volume)Ordered By: Dewayne Duff on 01-01-2025 Glucose [Mass/Vol] 127 mg/dL High 70-99 [facility] Serum or plasma calcium hussein urement (mass/volume)Ordered By: Dewayne Duff on 01-01-2025 Calcium [Mass/Vol] 7.9 mg/dL 7.6-11.0 [facility] Serum or plasma urea nitroge n measurement (mass/volume)Ordered By: Dewayne Duff on 01-01-2025 Urea nitrogen [Mass/Vol] 5 mg/dL 4-19 [facility] Sodium levelOrdered By: Fletcher Duff on 01-01-2025 Sodium [Moles/Vol] 140 mmol/L 133-145 [facility] Urine Cultureon 01-01-2025 [facility] Mixed Gram Positive Organisms Nada Count 25,000-50,000 [facility] Mixed contaminants. Submit a new specimen if indicated. Normal [facility] Comment on above: Performed By: #### M 100.2200 ####[facility] [address] [place], [address] Venous Blood Gason 5 Blood Gas Type ESTRELLA [facility] Comment on above: Performed By: #### L 9000.0810 ####[facility] [address] [place], [address] CO2 [Moles/Vol] 23 mmol/L Normal 23-33 [facility] Comment on above: Performed By: #### L 9000.0810 ####[facility] [address] [place], [address] FI02 21.0 [facility] Comment on above: Performed By: #### L 9000.0810 ####[facility] [address] [place], [address] HCO3 (Bld) [Moles/Vol] 22 mmol/L Normal 22-26 [facility] Comment on above: Performed By: #### L 9000.0810 ####[facility] [address] [place], [address] O2 Delivery Dev Not entered [facility] Comment on above: Performed By: #### L 9000.0810 ####[facility] [address] [place], [address] SITE Not entered [facility] Comment on above: Performed By: #### L 9000.0810 ####[facility] [address] [place], [address] VBG BE -3 mmol/L Low -1.0-3.5 [facility] Comment on above: Performed By: #### L 9000.0810 ####[facility] [address] [place], [address] VBG pCO2 35.7 mmHg Low 41-51 [facility] Comment on above: Performed By: #### L 9000.0810 ####[facility] [address] [place], [address] VBG pH 7.40 Normal 7.32-7.42 [facility] Comment on above: Performed By: #### L 9000.0810 ####[facility] [address] [place], [address] VBG PO2 53 mmHg High 25-40 [facility] Comment on above: Performed By: #### L 9000.0810 ####[facility] [address] [place], [address] VBG SO2 87 High 50-70 [facility] Comment on above: Performed By: #### L 9000.0810 ####[facility] [address] [place], [address] Venous blood base excess kedar surementOrdered By: Dewayne Duff on 01-01-2025 Base excess Calc (BldV) [Moles/Vol] -3 mmol/L Low -1.0-3.5 [facility] Venous blood bicarbonate kedar surementOrdered By: Dewayne Duff on 01-01-2025 HCO3 (Bld) [Moles/Vol] 22 mmol/L 22-26 [facility] Venous blood pH measurementO rdered By: Dewayne Duff on 01-01-2025 pH (BldV) 7.40 [pH] 7.32-7.42 [facility] Venous blood partial pressur e of carbon dioxide measurementOrdered By: Dewayne Duff on 01-01-2025 CO2 (BldV) [Partial pressure] 35.7 mm[Hg] Low 41-51 [facility] Venous blood partial pressur e of oxygen measurementOrdered By: Dewayne Duff on 01-01-2025 Oxygen (BldV) [Partial pressure] 53 mm[Hg] High 25-40 [facility] 12 Lead EKGon 12-31-2024 12 Lead EKG Normal [facility] Absolute lymphocyte countOrd ered By: Poli Barfield on 12-31-2024 Lymphocytes Auto (Unsp spec) [#/Vol] 2.74 10*3/uL 0.83-4.51 [facility] Anion gap in Serum or Plasma Ordered By: Poli Barfield on 12-31-2024 Anion gap [Moles/Vol] 13 mmol/L 11-23 [facility] Anion gap in Serum or Plasma Ordered By: David Bain on 12-31-2024 Anion gap [Moles/Vol] 12 mmol/L 11-23 [facility] Automated lymphocyte count a s percentage of total leukocytesOrdered By: Poli Barfield on 12-31-2024 Lymphocytes/100 WBC Auto (Unsp spec) 27.7 % 19-41 [facility] BUN/creatinine ratioOrdered By: Poli Barfield on 12-31-2024 Urea nitrogen/Creatinine [Mass ratio] 8.0 mg/mg Low 04-30 [facility] BUN/creatinine ratioOrdered By: David Bain on 12-31-2024 Urea nitrogen/Creatinine [Mass ratio] 10.2 mg/mg 04-30 [facility] Basic Metabolic Profile (BMP )on 12-31-2024 BUN/CRE 8.0 RATIO Low 04-30 [facility] Comment on above: Performed By: #### L 500.2500 ####[facility] [address] [place], [place], [address] Calcium [Mass/Vol] 8.2 mg/dL Normal 7.6-11.0 [facility] Comment on above: Performed By: #### L 500.2500 ####[facility] [address] [place], [address] Chloride [Moles/Vol] 108 mmol/L Normal 98-108 [facility] Comment on above: Performed By: #### L 500.2500 ####[facility] [address] [place], [address] CO2 [Moles/Vol] 18.2 mmol/L Low 21.0-32.0 [facility] Comment on above: Performed By: #### L 500.2500 ####[facility] [address] [place], [address] Creatinine [Mass/Vol] 0.85 mg/dL Normal 0.70-1.20 [facility] Comment on above: Performed By: #### L 500.2500 ####[facility] [address] [place], [address] ECRCL 118.14 ml/min Normal 50-250 [facility] Comment on above: Performed By: #### L 500.2500 ####[facility] [address] [place], [address] GAP 13 Normal 5-15 [facility] Comment on above: Performed By: #### L 500.2500 ####[facility] [address] [place], [address] GFR/1.73 sq M.predicted among non-blacks MDRD (S/P/Bld) [Vol rate/Area] 93 mL/min/{1.73_m2} Normal >60 [facility] Comment on above: Result Comment: mL/m in/1.73m2 CKD-EPI Creatinine Equation (2020) Performed By: #### L 500.2500 ####[facility] [address] [place], [address] Glucose [Mass/Vol] 177 mg/dL High 70-99 [facility] Comment on above: Performed By: #### L 500.2500 ####[facility] [address] [place], [address] Potassium [Moles/Vol] 3.7 mmol/L Normal 3.3-5.1 [facility] Comment on above: Performed By: #### L 500.2500 ####[facility] [address] [place], [address] Sodium [Moles/Vol] 139 mmol/L Normal 133-145 [facility] Comment on above: Performed By: #### L 500.2500 ####[facility] [address] [place], [address] Urea nitrogen [Mass/Vol] 7 mg/dL Normal 4-19 [facility] Comment on above: Performed By: #### L 500.2500 ####[facility] [address] [place], [address] BUN/CRE 7.1 RATIO Low 10-20 [facility] Comment on above: Performed By: #### L 500.2500, L501.6901 ####[facility] [address] [place], [address] Calcium [Mass/Vol] 9.1 mg/dL Normal 7.6-11.0 [facility] Comment on above: Performed By: #### L 500.2500, L501.6901 ####[facility] [address] [place], [address] Chloride [Moles/Vol] 105 mmol/L Normal 98-108 [facility] Comment on above: Performed By: #### L 500.2500, L501.6901 ####[facility] [address] [place], [address] CO2 [Moles/Vol] 20.4 mmol/L Low 21.0-32.0 [facility] Comment on above: Performed By: #### L 500.2500, L501.6901 ####[facility] [address] [place], [address] Creatinine [Mass/Vol] 0.99 mg/dL Normal 0.70-1.20 [facility] Comment on above: Performed By: #### L 500.2500, L501.6901 ####[facility] [address] [place], [address] ECRCL 101.44 ml/min Normal 50-250 [facility] Comment on above: Performed By: #### L 500.2500, L501.6901 ####[facility] [address] [place], [address] GAP 15 Normal 5-15 [facility] Comment on above: Performed By: #### L 500.2500, L501.6901 ####[facility] [address] [place], [address] GFR/1.73 sq M.predicted among non-blacks MDRD (S/P/Bld) [Vol rate/Area] 77 mL/min/{1.73_m2} Normal >60 [facility] Comment on above: Result Comment: mL/m in/1.73m2 CKD-EPI Creatinine Equation (2020) Performed By: #### L 500.2500, L501.6901 ####[facility] [address] [place], [address] Glucose [Mass/Vol] 160 mg/dL High 70-99 [facility] Comment on above: Performed By: #### L 500.2500, L501.6901 ####[facility] [address] [place], [address] Potassium [Moles/Vol] 3.8 mmol/L Normal 3.3-5.1 [facility] Comment on above: Performed By: #### L 500.2500, L501.6901 ####[facility] [address] [place], [address] Sodium [Moles/Vol] 140 mmol/L Normal 133-145 [facility] Comment on above: Performed By: #### L 500.2500, L501.6901 ####[facility] [address] [place], [address] Urea nitrogen [Mass/Vol] 7 mg/dL Normal 4-19 [facility] Comment on above: Performed By: #### L 500.2500, L501.6901 ####[facility] [address] [place], [address] BUN Normal 4-19 [facility] Comment on above: Order Comment: Call MD with results STAT Result Comment: Canc elled via OM: Order cancelled - Patient discharged Performed By: #### L 500.2500 ####[facility] [address] [place], [address] BUN/CRE Normal 10-20 [facility] Comment on above: Order Comment: Call MD with results STAT Result Comment: Canc elled via OM: Order cancelled - Patient discharged Performed By: #### L 500.2500 ####[facility] [address] [place], [address] Calcium Normal 7.6-11.0 [facility] Comment on above: Order Comment: Call MD with results STAT Result Comment: Canc elled via OM: Order cancelled - Patient discharged Performed By: #### L 500.2500 ####[facility] [address] [place], [address] CL Normal 98-108 [facility] Comment on above: Order Comment: Call MD with results STAT Result Comment: Canc elled via OM: Order cancelled - Patient discharged Performed By: #### L 500.2500 ####[facility] [address] [place], [address] CO2 Normal 21.0-32.0 [facility] Comment on above: Order Comment: Call MD with results STAT Result Comment: Canc elled via OM: Order cancelled - Patient discharged Performed By: #### L 500.2500 ####[facility] [address], [address] CREAT,SERUM Normal 0.70-1.20 [facility] Comment on above: Order Comment: Call MD with results STAT Result Comment: Canc elled via OM: Order cancelled - Patient discharged Performed By: #### L 500.2500 ####[facility] [address] [place], [address] eGFR Normal >60 [facility] Comment on above: Order Comment: Call MD with results STAT Result Comment: Canc elled via OM: Order cancelled - Patient discharged Performed By: #### L 500.2500 ####[facility] [address], [address] GAP Normal 5-15 [facility] Comment on above: Order Comment: Call MD with results STAT Result Comment: Canc elled via OM: Order cancelled - Patient discharged Performed By: #### L 500.2500 ####[facility] [address], [address] GLU Normal 70-99 [facility] Comment on above: Order Comment: Call MD with results STAT Result Comment: Canc elled via OM: Order cancelled - Patient discharged Performed By: #### L 500.2500 ####[facility] [address] [place], [address] Potassium Normal 3.3-5.1 [facility] Comment on above: Order Comment: Call MD with results STAT Result Comment: Canc elled via OM: Order cancelled - Patient discharged Performed By: #### L 500.2500 ####[facility] [address] [place], [address] Basic Metabolic Profile (BMP) Normal 133-145 [facility] Comment on above: Order Comment: Call MD with results STAT Result Comment: Canc elled via OM: Order cancelled - Patient discharged Performed By: #### L 500.2500 ####[facility] [address] [place], [address] BUN Normal 4-19 [facility] Comment on above: Order Comment: Call MD with results STAT Result Comment: Canc elled via OM: Order cancelled - Patient discharged Performed By: #### L 500.2500 ####[facility] [address] [place], [address] BUN/CRE Normal 10-20 [facility] Comment on above: Order Comment: Call MD with results STAT Result Comment: Canc elled via OM: Order cancelled - Patient discharged Performed By: #### L 500.2500 ####[facility] [address] [place], [address] Calcium Normal 7.6-11.0 [facility] Comment on above: Order Comment: Call MD with results STAT Result Comment: Canc elled via OM: Order cancelled - Patient discharged Performed By: #### L 500.2500 ####[facility] [address] [place], [address] CL Normal 98-108 [facility] Comment on above: Order Comment: Call MD with results STAT Result Comment: Canc elled via OM: Order cancelled - Patient discharged Performed By: #### L 500.2500 ####[facility] [address] [place], [address] CO2 Normal 21.0-32.0 [facility] Comment on above: Order Comment: Call MD with results STAT Result Comment: Canc elled via OM: Order cancelled - Patient discharged Performed By: #### L 500.2500 ####[facility] [address] [place], [address] CREAT,SERUM Normal 0.70-1.20 [facility] Comment on above: Order Comment: Call MD with results STAT Result Comment: Canc elled via OM: Order cancelled - Patient discharged Performed By: #### L 500.2500 ####[facility] [address] [place], [address] eGFR Normal >60 [facility] Comment on above: Order Comment: Call MD with results STAT Result Comment: Canc elled via OM: Order cancelled - Patient discharged Performed By: #### L 500.2500 ####[facility] [address], [address] GAP Normal 5-15 [facility] Comment on above: Order Comment: Call MD with results STAT Result Comment: Canc elled via OM: Order cancelled - Patient discharged Performed By: #### L 500.2500 ####[facility] [address] [place], [address] GLU Normal 70-99 [facility] Comment on above: Order Comment: Call MD with results STAT Result Comment: Canc elled via OM: Order cancelled - Patient discharged Performed By: #### L 500.2500 ####[facility] [address] [place], [address] Potassium Normal 3.3-5.1 [facility] Comment on above: Order Comment: Call MD with results STAT Result Comment: Canc elled via OM: Order cancelled - Patient discharged Performed By: #### L 500.2500 ####[facility] [address] [place], [address] Basic Metabolic Profile (BMP) Normal 133-145 [facility] Comment on above: Order Comment: Call MD with results STAT Result Comment: Canc elled via OM: Order cancelled - Patient discharged Performed By: #### L 500.2500 ####[facility] [address] [place], [address] BUN/CRE 10.2 RATIO Normal 10-20 [facility] Comment on above: Order Comment: Call MD with results STAT Performed By: #### L 500.2500 ####[facility] [address] [place], [address] Calcium [Mass/Vol] 8.2 mg/dL Normal 7.6-11.0 [facility] Comment on above: Order Comment: Call MD with results STAT Performed By: #### L 500.2500 ####[facility] [address] [place], [address] Chloride [Moles/Vol] 106 mmol/L Normal 98-108 [facility] Comment on above: Order Comment: Call MD with results STAT Performed By: #### L 500.2500 ####[facility] [address] [place], [address] CO2 [Moles/Vol] 21.3 mmol/L Normal 21.0-32.0 [facility] Comment on above: Order Comment: Call MD with results STAT Performed By: #### L 500.2500 ####[facility] [address] [place], [address] Creatinine [Mass/Vol] 0.82 mg/dL Normal 0.70-1.20 [facility] Comment on above: Order Comment: Call MD with results STAT Performed By: #### L 500.2500 ####[facility] [address] [place], [address] ECRCL 123.80 ml/min Normal 50-250 [facility] Comment on above: Order Comment: Call MD with results STAT Performed By: #### L 500.2500 ####[facility] [address] [place], [address] GAP 12 Normal 5-15 [facility] Comment on above: Order Comment: Call MD with results STAT Performed By: #### L 500.2500 ####[facility] [address] [place], [address] GFR/1.73 sq M.predicted among non-blacks MDRD (S/P/Bld) [Vol rate/Area] 97 mL/min/{1.73_m2} Normal >60 [facility] Comment on above: Order Comment: Call MD with results STAT Result Comment: mL/m in/1.73m2 CKD-EPI Creatinine Equation (2020) Performed By: #### L 500.2500 ####[facility] [address] [place], [address] Glucose [Mass/Vol] 129 mg/dL High 70-99 [facility] Comment on above: Order Comment: Call MD with results STAT Performed By: #### L 500.2500 ####[facility] [address] [place], [address] Potassium [Moles/Vol] 3.6 mmol/L Normal 3.3-5.1 [facility] Comment on above: Order Comment: Call MD with results STAT Performed By: #### L 500.2500 ####[facility] [address] [place], [address] Sodium [Moles/Vol] 138 mmol/L Normal 133-145 [facility] Comment on above: Order Comment: Call MD with results STAT Performed By: #### L 500.2500 ####[facility] [address] [place], [address] Urea nitrogen [Mass/Vol] 8 mg/dL Normal 4-19 [facility] Comment on above: Order Comment: Call MD with results STAT Performed By: #### L 500.2500 ####[facility] [address] [place], [address] BUN/CRE 10.6 RATIO Normal 10-20 [facility] Comment on above: Order Comment: Call MD with results STAT Performed By: #### L 500.2500 ####[facility] [address] [place], [address] Calcium [Mass/Vol] 8.0 mg/dL Normal 7.6-11.0 [facility] Comment on above: Order Comment: Call MD with results STAT Performed By: #### L 500.2500 ####[facility] [address] [place], [address] Chloride [Moles/Vol] 106 mmol/L Normal 98-108 [facility] Comment on above: Order Comment: Call MD with results STAT Performed By: #### L 500.2500 ####[facility] [address] [place], [address] CO2 [Moles/Vol] 23.0 mmol/L Normal 21.0-32.0 [facility] Comment on above: Order Comment: Call MD with results STAT Performed By: #### L 500.2500 ####[facility] [address] [place], [address] Creatinine [Mass/Vol] 0.84 mg/dL Normal 0.70-1.20 [facility] Comment on above: Order Comment: Call MD with results STAT Performed By: #### L 500.2500 ####[facility] [address] [place], [address] ECRCL 119.52 ml/min Normal 50-250 [facility] Comment on above: Order Comment: Call MD with results STAT Performed By: #### L 500.2500 ####[facility] [address] [place], [address] GAP 11 Normal 5-15 [facility] Comment on above: Order Comment: Call MD with results STAT Performed By: #### L 500.2500 ####[facility] [address] [place], [address] GFR/1.73 sq M.predicted among non-blacks MDRD (S/P/Bld) [Vol rate/Area] 94 mL/min/{1.73_m2} Normal >60 [facility] Comment on above: Order Comment: Call MD with results STAT Result Comment: mL/m in/1.73m2 CKD-EPI Creatinine Equation (2020) Performed By: #### L 500.2500 ####[facility] [address] [place], [address] Glucose [Mass/Vol] 106 mg/dL High 70-99 [facility] Comment on above: Order Comment: Call MD with results STAT Performed By: #### L 500.2500 ####[facility] [address] [place], [address] Potassium [Moles/Vol] 3.3 mmol/L Normal 3.3-5.1 [facility] Comment on above: Order Comment: Call MD with results STAT Result Comment: Hemo lysis present, Results??could be affected.?? Performed By: #### L 500.2500 ####[facility] [address] [place], [address] Sodium [Moles/Vol] 140 mmol/L Normal 133-145 [facility] Comment on above: Order Comment: Call MD with results STAT Performed By: #### L 500.2500 ####[facility] [address] [place], [address] Urea nitrogen [Mass/Vol] 9 mg/dL Normal 4-19 [facility] Comment on above: Order Comment: Call MD with results STAT Performed By: #### L 500.2500 ####[facility] [address] [place], [address] Basophil percentageOrdered B y: Poli Barfield on 12-31-2024 Basophils/100 WBC (Bld) 0.5 % 0-[address] [facility] Bedside Glucoseon 12-31-2024 FINGERSTICK GLU 173 mg/dL High 74-106 [facility] Comment on above: Result Comment: BULL GEMENT OF PATIENT CARE PER NURSING PROTOCOL Performed By: #### L 501.080 ####[facility] [address] [place], [address] FINGERSTICK GLU 169 mg/dL High 74-106 [facility] Comment on above: Result Comment: BULL GEMENT OF PATIENT CARE PER NURSING PROTOCOL Performed By: #### L 501.080 ####[facility] [address] [place], [address] FINGERSTICK GLU 152 mg/dL High 74-106 [facility] Comment on above: Result Comment: BULL GEMENT OF PATIENT CARE PER NURSING PROTOCOL Performed By: #### L 501.080 ####[facility] [address] [place], [address] FINGERSTICK GLU 140 mg/dL High 74-106 [facility] Comment on above: Result Comment: BULL GEMENT OF PATIENT CARE PER NURSING PROTOCOL Performed By: #### L 501.080 ####[facility] [address] [place], [address] FINGERSTICK GLU 146 mg/dL High 74-106 [facility] Comment on above: Result Comment: BULL GEMENT OF PATIENT CARE PER NURSING PROTOCOL Performed By: #### L 501.080 ####[facility] [address] [place], [address] FINGERSTICK GLU 147 mg/dL High 74-106 [facility] Comment on above: Result Comment: BULL GEMENT OF PATIENT CARE PER NURSING PROTOCOL Performed By: #### L 501.080 ####[facility] [address] [place], [address] FINGERSTICK GLU 136 mg/dL High 74-106 [facility] Comment on above: Result Comment: BULL GEMENT OF PATIENT CARE PER NURSING PROTOCOL Performed By: #### L 501.080 ####[facility] [address], [address] FINGERSTICK GLU 120 mg/dL High 74-106 [facility] Comment on above: Result Comment: BULL GEMENT OF PATIENT CARE PER NURSING PROTOCOL Performed By: #### L 501.080 ####[facility] [address] [place], [address] FINGERSTICK GLU 112 mg/dL High 74-106 [facility] Comment on above: Result Comment: BULL GEMENT OF PATIENT CARE PER NURSING PROTOCOL Performed By: #### L 501.080 ####[facility] [address] [place], [address] FINGERSTICK GLU 106 mg/dL Normal 74-106 [facility] Comment on above: Result Comment: BULL GEMENT OF PATIENT CARE PER NURSING PROTOCOL Performed By: #### L 501.080 ####[facility] [address] [place], [address] FINGERSTICK GLU 84 mg/dL Normal 74-106 [facility] Comment on above: Result Comment: BULL GEMENT OF PATIENT CARE PER NURSING PROTOCOL Performed By: #### L 501.080 ####[facility] [address] [place], [address] FINGERSTICK GLU 99 mg/dL Normal 74-106 [facility] Comment on above: Result Comment: BULL GEMENT OF PATIENT CARE PER NURSING PROTOCOL Performed By: #### L 501.080 ####[facility] [address] [place], [address] FINGERSTICK GLU 104 mg/dL Normal 74-106 [facility] Comment on above: Result Comment: BULL GEMENT OF PATIENT CARE PER NURSING PROTOCOL Performed By: #### L 501.080 ####[facility] [address] [place], [address] FINGERSTICK GLU 130 mg/dL High 74-106 [facility] Comment on above: Result Comment: BULL GEMENT OF PATIENT CARE PER NURSING PROTOCOL Performed By: #### L 501.080 ####[facility] [address] [place], [address] Beta-Hydroxbytyrateon 2024 BETA-HYDROXYBUT 0.5 mmol/L High 0.0-0.3 [facility] Comment on above: Performed By: #### L 501.6901 ####[facility] [address] [place], [address] BETA-HYDROXYBUT 0.6 mmol/L High 0.0-0.3 [facility] Comment on above: Performed By: #### L 500.2500, L501.6901 ####[facility] [address] [place], [address] BETA-HYDROXYBUT 0.1 mmol/L Normal 0.0-0.3 [facility] Comment on above: Performed By: #### L 501.6901 ####[facility] [address] [place], [address] Beta-hydroxybutyrateOrdered By: Poli Barfield on 12-31-2024 Beta hydroxybutyrate [Mass/Vol] 0.5 mmol/L High 0.0-0.3 [facility] Beta-hydroxybutyrateOrdered By: Dewayne Duff on 12-31-2024 Beta hydroxybutyrate [Mass/Vol] 0.1 mmol/L 0.0-0.3 [facility] Bilirubin Test strip Ql (U)O rdered By: Poli Barfield on 12-31-2024 Bilirubin Ql (U) Negative Negative [facility] CBC W/Diff, Automatedon 12-11-2024 Absolute Lymph 2.74 X10 3/uL Normal 0.83-4.51 [facility] Comment on above: Performed By: #### L 100.0100 ####[facility] [address] [place], [address] Absolute Neut 6.4 X10 3/uL Normal 2.0-7.7 [facility] Comment on above: Performed By: #### L 100.0100 ####[facility] [address] [place], [address] Basophils/100 WBC (Bld) 0.5 % Normal 0-[address] [facility] Comment on above: Performed By: #### L 100.0100 ####[facility] [address] [place], [address] Eosinophils/100 WBC (Bld) 0.3 % Normal 0-5 [facility] Comment on above: Performed By: #### L 100.0100 ####[facility] [address] [place], [address] Erythrocyte distribution width (RBC) [Ratio] 14.3 % Normal 11.6-14.6 [facility] Comment on above: Performed By: #### L 100.0100 ####[facility] [address] [place], [address] Hematocrit (Bld) [Volume fraction] 38.0 % Normal 37-47 [facility] Comment on above: Performed By: #### L 100.0100 ####[facility] [address] [place], [address] Hemoglobin (Bld) [Mass/Vol] 12.4 g/dL Normal 12.0-15.0 [facility] Comment on above: Performed By: #### L 100.0100 ####[facility] [address] [place], [address] IG% 0.700 Normal 0.0-0.9 [facility] Comment on above: Result Comment: IG% - Immature Granulocytes (promyelocytes, myelocytes andmetamyelocytes) > 1% indicates that a LEFT SHIFT is Present. Performed By: #### L 100.0100 ####[facility] [address] [place], [address] Lymphocytes/100 WBC (Bld) 27.7 % Normal 19-41 [facility] Comment on above: Performed By: #### L 100.0100 ####[facility] [address] [place], [address] MCH (RBC) [Entitic mass] 27.4 pg Normal 27.0-32.0 [facility] Comment on above: Performed By: #### L 100.0100 ####[facility] [address] [place], [address] MCHC (RBC) [Mass/Vol] 32.6 g/dL Normal 32-36 [facility] Comment on above: Performed By: #### L 100.0100 ####[facility] [address] [place], [address] MCV (RBC) [Entitic vol] 83.9 fL Normal 81-[address] [facility] Comment on above: Performed By: #### L 100.0100 ####[facility] [address] [place], [address] Monocytes/100 WBC (Bld) 6.4 % Normal 0-10 [facility] Comment on above: Performed By: #### L 100.0100 ####[facility] [address] [place], [address] Neutrophils/100 WBC (Bld) 64.4 % Normal 47-70 [facility] Comment on above: Performed By: #### L 100.0100 ####[facility] [address] [place], [address] Nucleated RBC (Bld) [#/Vol] 0 10*3/uL Normal 0-5 [facility] Comment on above: Performed By: #### L 100.0100 ####[facility] [address] [place], [address] Platelet mean volume (Bld) [Entitic vol] 9.5 fL Normal 6.2-12.0 [facility] Comment on above: Performed By: #### L 100.0100 ####[facility] [address] [place], [address] Platelets (Bld) [#/Vol] 400 10*3/uL Normal 150-450 [facility] Comment on above: Performed By: #### L 100.0100 ####[facility] [address] [place], [address] RBC (Bld) [#/Vol] 4.53 10*6/uL Normal 4.2-5.4 [facility] Comment on above: Performed By: #### L 100.0100 ####[facility] [address] [place], [address] RDW SD 43.4 fl Normal 35.1-43.9 [facility] Comment on above: Performed By: #### L 100.0100 ####[facility] [address] [place], [address] WBC (Bld) [#/Vol] 9.9 10*3/uL Normal 4.4-11.0 [facility] Comment on above: Performed By: #### L 100.0100 ####[facility] [address] [place], [address] Absolute Neut Normal 2.0-7.7 [facility] Comment on above: Result Comment: ERASTO ENT DISCHARGED Performed By: #### L 100.0100 ####[facility] [address] [place], [address] HCT Normal 37-47 [facility] Comment on above: Result Comment: ERASTO ENT DISCHARGED Performed By: #### L 100.0100 ####[facility] [address] [place], [address] HGB Normal 12.0-15.0 [facility] Comment on above: Result Comment: ERASTO ENT DISCHARGED Performed By: #### L 100.0100 ####[facility] [address] [place], [address] MCH Normal 27.0-32.0 [facility] Comment on above: Result Comment: ERASTO ENT DISCHARGED Performed By: #### L 100.0100 ####[facility] [address] [place], [address] MCHC Normal 32-36 [facility] Comment on above: Result Comment: ERASTO ENT DISCHARGED Performed By: #### L 100.0100 ####[facility] [address] [place], [address] MCV Normal 81-99 [facility] Comment on above: Result Comment: ERASTO ENT DISCHARGED Performed By: #### L 100.0100 ####[facility] [address] [place], [address] NEUT% Normal 47-70 [facility] Comment on above: Result Comment: ERASTO ENT DISCHARGED Performed By: #### L 100.0100 ####[facility] [address] [place], [address] PLT Normal 150-450 [facility] Comment on above: Result Comment: ERASTO ENT DISCHARGED Performed By: #### L 100.0100 ####[facility] [address] [place], [address] RBC Normal 4.2-5.4 [facility] Comment on above: Result Comment: ERASTO ENT DISCHARGED Performed By: #### L 100.0100 ####[facility] [address] [place], [address] RDW CV Normal 11.6-14.6 [facility] Comment on above: Result Comment: ERASTO ENT DISCHARGED Performed By: #### L 100.0100 ####[facility] [address] [place], [address] RDW SD Normal 35.1-43.9 [facility] Comment on above: Result Comment: ERASTO ENT DISCHARGED Performed By: #### L 100.0100 ####[facility] [address] [place], [address] WBC Normal 4.4-11.0 [facility] Comment on above: Result Comment: ERASTO ENT DISCHARGED Performed By: #### L 100.0100 ####[facility] [address] [place], [address] CO2 (BldV) [Moles/Vol]Ordere d By: Poli Barfield on 12-31-2024 CO2 [Moles/Vol] 25 mmol/L 23-33 [facility] Carbon dioxide, total [Moles /volume] in Central venous bloodOrdered By: Poli Barfield on 12-31-2024 CO2 [Moles/Vol] 18.2 mmol/L Low 21.0-32.0 [facility] Carbon dioxide, total [Moles /volume] in Central venous bloodOrdered By: David Bain on 12-31-2024 CO2 [Moles/Vol] 21.3 mmol/L 21.0-32.0 [facility] Chloride assayOrdered By: Demetrio Barfield on 12-31-2024 Chloride [Moles/Vol] 108 mmol/L 98-108 [facility] Chloride assayOrdered By: Dwaine Bain on 12-31-2024 Chloride [Moles/Vol] 106 mmol/L 98-108 [facility] Emergency Department Summary on 12-31-2024 Emergency Department Summary Normal [facility] Eosinophil percentageOrdered By: Poli Barfield on 12-31-2024 Eosinophils/100 WBC (Bld) 0.3 % 0-5 [facility] Erythrocyte distribution wid th ratioOrdered By: Poli Barfield on 12-31-2024 Erythrocyte distribution width (RBC) [Ratio] 14.3 % 11.6-14.6 [facility] Erythrocyte distribution wid th standard deviationOrdered By: Poli Barfield on 12-31-2024 Erythrocyte distribution width (RBC) [Ratio] 43.4 fl 35.1-43.9 [facility] Glomerular filtration rate ( GFR) estimation/1.73 sq m using serum, plasma, or whole bOrdered By: Poli Barfield on 12-31-2024 GFR/1.73 sq M.predicted among non-blacks MDRD (S/P/Bld) [Vol rate/Area] 93 mL/min/{1.73_m2} >60 [facility] Glomerular filtration rate ( GFR) estimation/1.73 sq m using serum, plasma, or whole bOrdered By: David Bain on 12-31-2024 GFR/1.73 sq M.predicted among non-blacks MDRD (S/P/Bld) [Vol rate/Area] 97 mL/min/{1.73_m2} >60 [facility] Comment on above: mL/min/1.73m2 CKD-EP I Creatinine Equation (2020) Glucose measurement at bedsi deOrdered By: Poli Barfield on 12-31-2024 Glucose [Mass/Vol] 169 mg/dL High 74-106 [facility] Glucose measurement at beds deOrdered By: David Bain on 12-31-2024 Glucose [Mass/Vol] 147 mg/dL High 74-106 [facility] Comment on above: MANAGEMENT OF PATIEN T CARE PER NURSING PROTOCOL H AND P Exam - Hospitaliston 12-31-2024 H&P Exam - Hospitalist Normal [facility] Hematocrit Auto (Bld) [Volum e fraction]Ordered By: Poli Barfield on 12-31-2024 Hematocrit (Bld) [Volume fraction] 38.0 % 37-47 [facility] Hemoglobin A1con 12-31-2024 HbA1c (Bld) [Mass fraction] 8.5 % High <=5.6 [facility] Comment on above: Result Comment: Norm al < 5.7 % Prediabetic 5.7 - 6.4 % Diabetic >or= 6.5 % Please note range changes. Performed By: #### L 501.7913 ####[facility] [address] [place], [place], [address] Hemoglobin A1c percentageOrd ered By: David Bain on 12-31-2024 HbA1c (Bld) [Mass fraction] 8.5 % High <5.7 [facility] Comment on above: Normal < 5.7 % Predi abetic 5.7 - 6.4 % Diabetic >or= 6.5 % Please note range changes. Hemoglobin measurementOrdere d By: Poli Barfield on 12-31-2024 Hemoglobin (Bld) [Mass/Vol] 12.4 g/dL 12.0-15.0 [facility] Immature granulocytes/100 WB C Auto (Bld)Ordered By: Poli Barfield on 12-31-2024 Immature granulocytes/100 WBC (Bld) 0.700 % 0.0-0.9 [facility] Ketones Test strip Ql (U)Ord ered By: Poli Barfield on 12-31-2024 Ketones Ql (U) 5 mg/dl High Negative [facility] MCV (mean corpuscular volume ) determinationOrdered By: Poli Barfield on 12-31-2024 MCV (RBC) [Entitic vol] 83.9 fL 81-[address] [facility] Magnesiumon 12-31-2024 Magnesium [Mass/Vol] 1.5 mg/dL Normal 1.5-2.2 [facility] Comment on above: Performed By: #### L 501.5200, L501.9520 ####[facility] [address] [place], [address] Magnesium measurement (mass/ volume)Ordered By: Dewayne Duff on 12-31-2024 Magnesium (Unsp spec) [Mass/Vol] 1.5 mg/dL 1.5-2.2 [facility] Mean corpuscular hemoglobin (MCH) determinationOrdered By: Poli Barfield on 12-31-2024 MCH (RBC) [Entitic mass] 27.4 pg 27.0-32.0 [facility] Monocyte percentageOrdered B y: Poli Barfield on 12-31-2024 Monocytes/100 WBC (Bld) 6.4 % 0-[address] [facility] Mucus LM Ql (Urine sed)Order ed By: Poli Barfield on 12-31-2024 Mucus Ql (Urine sed) 0 SEEN /hpf [facility] Neutrophil percentageOrdered By: Poli Barfield on 12-31-2024 Neutrophils/100 WBC (Bld) 64.4 % 47-70 [facility] Nitrite Test strip Ql (U)Ord ered By: Poli Barfield on 12-31-2024 Nitrite Ql (U) Negative Negative [facility] No Panel InformationOrdered By: Poli Barfield on 12-31-2024 ESTRELLA [facility] Not entered [facility] Room Air [facility] Platelet countOrdered By: Demetrio Barfield on 12-31-2024 Platelets (Bld) [#/Vol] 400 10*3/uL 150-450 [facility] Potassium measurement (mass/ volume)Ordered By: Poli Barfield on 12-31-2024 Potassium (Unsp spec) [Mass/Vol] 3.7 mmol/L 3.3-5.1 [facility] Potassium measurement (mass/ volume)Ordered By: David Bain on 12-31-2024 Potassium (Unsp spec) [Mass/Vol] 3.6 mmol/L 3.3-5.1 [facility] ,Urineon 12-31-2024 Beta HCG ( test) Ql (U) Negative Normal [facility] Comment on above: Result Comment: Very dilute urine specimens, as indicated by a low specificgravity, may not contain retail field representative levels of hCG.If is still suspected, a first morning urinespecimen should be collected 48 hours later and tested. Performed By: #### L 400.7600 ####[facility] [address] [place], [place], [address] Protein Test strip Ql (U)Ord ered By: Poli Barfield on 12-31-2024 Protein Ql (U) 30 mg/dl High Negative [facility] RBC Auto (Bld) [#/Vol]Ordere d By: Poli Barfield on 12-31-2024 RBC (Bld) [#/Vol] 4.53 10*6/uL 4.2-5.4 [facility] Serum creatinine measurement (mass/volume)Ordered By: Poli Barfield on 12-31-2024 Creatinine [Mass/Vol] 0.85 mg/dL 0.70-1.20 [facility] Serum creatinine measurement (mass/volume)Ordered By: David Bain on 12-31-2024 Creatinine [Mass/Vol] 0.82 mg/dL 0.70-1.20 [facility] Serum glucose measurement (m ass/volume)Ordered By: Poli Barfield on 12-31-2024 Glucose [Mass/Vol] 177 mg/dL High 70- [facility] Serum glucose measurement (m ass/volume)Ordered By: David Bain on 12-31-2024 Glucose [Mass/Vol] 129 mg/dL High 70-99 [facility] Serum or plasma calcium hussein urement (mass/volume)Ordered By: Poli Barfield on 12-31-2024 Calcium [Mass/Vol] 8.2 mg/dL 7.6-11.0 [facility] Serum or plasma calcium hussein urement (mass/volume)Ordered By: David Bain on 12-31-2024 Calcium [Mass/Vol] 8.2 mg/dL 7.6-11.0 [facility] Serum or plasma urea nitroge n measurement (mass/volume)Ordered By: Poli Barfield on 12-31-2024 Urea nitrogen [Mass/Vol] 7 mg/dL - [facility] Serum or plasma urea nitroge n measurement (mass/volume)Ordered By: David Bain on 12-31-2024 Urea nitrogen [Mass/Vol] 8 mg/dL - [facility] Sodium levelOrdered By: Poli Barfield on 12-31-2024 Sodium [Moles/Vol] 139 mmol/L 133-145 [facility] Sodium levelOrdered By: Darnell Bain on 12-31-2024 Sodium [Moles/Vol] 138 mmol/L 133-145 [facility] Squamous epithelial cells de tection in urine sediment by light microscopyOrdered By: Poli Barfield on 12-31-2024 Epithelial cells.squamous LM Ql (Urine sed) 0-5 SEEN /hpf 5-10 [facility] TSH DL <= 0.005 mIU/L QnOrde red By: Dewayne Duff on 12-31-2024 TSH Qn 0.649 uIU/mL 0.300-4.200 [facility] Thyroid Stim Hormone (TSH)on 12-31-2024 TSH 0.649 uIU/mL Normal 0.300-4.200 [facility] Comment on above: Performed By: #### L 501.5200, L501.9520 ####[facility] [address] [place], [place], [address] Urinalysis, Completeon 12-31 BACTERIA 3+ /hpf Normal None Seen [facility] Comment on above: Order Comment: CLEAN CATCH Performed By: #### L 400.0001 ####[facility] [address] [place], [place], [id number] EPI,SQUAMOUS 0-5 SEEN Normal 5-10 [facility] Comment on above: Order Comment: CLEAN CATCH Performed By: #### L 400.0001 ####[facility] [address] [place], [place], [address] WBC 0-5 SEEN Normal 0-5 [facility] Comment on above: Order Comment: CLEAN CATCH Performed By: #### L 400.0001 ####[facility] [address] [place], [address] Mucus Ql (Urine sed) 0 SEEN Normal [facility] Comment on above: Order Comment: CLEAN CATCH Performed By: #### L 400.0001 ####[facility] [address] [place], [address] RBC 0 SEEN Normal 0-5 [facility] Comment on above: Order Comment: CLEAN CATCH Performed By: #### L 400.0001 ####[facility] [address] [place], [place], [address] Urine clarityOrdered By: Devon Barfield on 12-31-2024 Clarity (U) Cloudy Clear [facility] Urine color determinationOrd ered By: Poli Barfield on 12-31-2024 Color (U) Yellow Yellow [facility] Urine glucose detectionOrder ed By: Poli Barfield on 12-31-2024 Glucose Ql (U) Normal mg/dl Normal [facility] Urine leukocyte esterase det ection by dipstickOrdered By: Poli Barfield on 12-31-2024 Leukocyte esterase Test strip Ql (U) 100 /ul High Negative [facility] Urine pHOrdered By: Poli Barfield on 12-31-2024 pH (U) 6.0 [pH] 5.0 - 8.0 [facility] Urine testOrdered By: Dewayne Duff on 12-31-2024 HCG ( test) Ql (U) Negative [facility] Urine sediment bacteria coun t by microscopy (number/high power field)Ordered By: Poli Barfield on 12-31-2024 Bacteria LM.HPF (Urine sed) [#/Area] 3 /[HPF] None Seen [facility] Urine specific gravity measu rementOrdered By: Poli Barfield on 12-31-2024 Specific gravity (U) [Rel density] 1.020 1.002-1.030 [facility] Urine urobilinogen measureme ntOrdered By: Poli Barfield on 12-31-2024 Urobilinogen Ql (U) Normal mg/dl Normal [facility] Venous Blood Gason Blood Gas Type ESTRELLA Normal [facility] Comment on above: Performed By: #### L 9000.0810 ####[facility] [address] [place], [address] CO2 [Moles/Vol] 25 mmol/L Normal 23-33 [facility] Comment on above: Performed By: #### L 9000.0810 ####[facility] [address] [place], [address] HCO3 (Bld) [Moles/Vol] 24 mmol/L Normal 22-26 [facility] Comment on above: Performed By: #### L 9000.0810 ####[facility] [address] [place], [address] O2 Delivery Dev Room Air Normal [facility] Comment on above: Performed By: #### L 9000.0810 ####[facility] [address] [place], [address] SITE Not entered Normal [facility] Comment on above: Performed By: #### L 9000.0810 ####[facility] [address] [place], [address] VBG BE 0 mmol/L Normal -1.0-3.5 [facility] Comment on above: Performed By: #### L 9000.0810 ####[facility] [address] [place], [address] VBG pCO2 30.7 mmHg Low 41-51 [facility] Comment on above: Performed By: #### L 9000.0810 ####[facility] [address] [place], [address] VBG pH 7.49 High 7.32-7.42 [facility] Comment on above: Performed By: #### L 9000.0810 ####[facility] [address] [place], [address] VBG PO2 22 mmHg Low 25-40 [facility] Comment on above: Performed By: #### L 9000.0810 ####[facility] [address] [place], [address] VBG SO2 43 Low 50-70 [facility] Comment on above: Performed By: #### L 9000.0810 ####[facility] [address] [place], [address] Venous blood base excess kedar surementOrdered By: Poli Barfield on 12-31-2024 Base excess Calc (BldV) [Moles/Vol] 0 mmol/L -1.0-3.5 [facility] Venous blood bicarbonate kedar surementOrdered By: Poli Barfield on 12-31-2024 HCO3 (Bld) [Moles/Vol] 24 mmol/L 22-26 [facility] Venous blood pH measurementO rdered By: Poli Barfield on 12-31-2024 pH (BldV) 7.49 [pH] High 7.32-7.42 [facility] Venous blood partial pressur e of carbon dioxide measurementOrdered By: Poli Barfield on 12-31-2024 CO2 (BldV) [Partial pressure] 30.7 mm[Hg] Low 41-51 [facility] Venous blood partial pressur e of oxygen measurementOrdered By: Poli Barfield on 12-31-2024 Oxygen (BldV) [Partial pressure] 22 mm[Hg] Low 25-40 [facility] White blood cell (WBC) count Ordered By: Poli Barfield on 12-31-2024 WBC (Bld) [#/Vol] 9.9 10*3/uL 4.4-11.0 [facility] White blood cell countOrdere d By: Poli Barfield on 12-31-2024 White blood cell count 0-5 SEEN /hpf 0-5 [facility] Absolute lymphocyte countOrd ered By: Poli Barfield on 12-30-2024 Lymphocytes Auto (Unsp spec) [#/Vol] 3.14 10*3/uL 0.83-4.51 [facility] Absolute neutrophil countOrd ered By: Poli Barfield on 12-30-2024 Neutrophils (Bld) [#/Vol] 9.4 10*3/uL High 2.0-7.7 [facility] Amphetamine detection with 1 000 ng/mL as cutoffOrdered By: Poli Barfield on 12-30-2024 Amphetamines Screen method >1000 ng/mL Ql (U) Negative < 200 ng/mL [facility] Anion gap in Serum or Plasma Ordered By: Poli Barfield on 12-30-2024 Anion gap [Moles/Vol] 20 mmol/L High 5-15 [facility] Automated lymphocyte count a s percentage of total leukocytesOrdered By: Poli Barfield on 12-30-2024 Lymphocytes/100 WBC Auto (Unsp spec) 23.6 % 19-41 [facility] BUN/creatinine ratioOrdered By: Poli Barfield on 12-30-2024 Urea nitrogen/Creatinine [Mass ratio] 11.1 mg/mg 10- [facility] Basic Metabolic Profile (BMP )on 12-30-2024 BUN/CRE 11.9 RATIO Normal - [facility] Comment on above: Order Comment: Call MD with results STAT Performed By: #### L 500.2500 ####[facility] [address] [place], [address] Calcium [Mass/Vol] 8.1 mg/dL Normal 7.6-11.0 [facility] Comment on above: Order Comment: Call MD with results STAT Performed By: #### L 500.2500 ####[facility] [address] [place], [address] Chloride [Moles/Vol] 106 mmol/L Normal 98-108 [facility] Comment on above: Order Comment: Call MD with results STAT Performed By: #### L 500.2500 ####[facility] [address] [place], [address] CO2 [Moles/Vol] 21.8 mmol/L Normal 21.0-32.0 [facility] Comment on above: Order Comment: Call MD with results STAT Performed By: #### L 500.2500 ####[facility] [address] [place], [address] Creatinine [Mass/Vol] 0.83 mg/dL Normal 0.70-1.20 [facility] Comment on above: Order Comment: Call MD with results STAT Performed By: #### L 500.2500 ####[facility] [address] [place], [address] ECRCL 120.96 ml/min Normal 50-250 [facility] Comment on above: Order Comment: Call MD with results STAT Performed By: #### L 500.2500 ####[facility] [address] [place], [address] GAP 13 Normal 5-15 [facility] Comment on above: Order Comment: Call MD with results STAT Performed By: #### L 500.2500 ####[facility] [address] [place], [address] GFR/1.73 sq M.predicted among non-blacks MDRD (S/P/Bld) [Vol rate/Area] 96 mL/min/{1.73_m2} Normal >60 [facility] Comment on above: Order Comment: Call MD with results STAT Result Comment: mL/m in/1.73m2 CKD-EPI Creatinine Equation (2020) Performed By: #### L 500.2500 ####[facility] [address] [place], [address] Glucose [Mass/Vol] 109 mg/dL High 70-99 [facility] Comment on above: Order Comment: Call MD with results STAT Performed By: #### L 500.2500 ####[facility] [address] [place], [address] Potassium [Moles/Vol] 3.4 mmol/L Normal 3.3-5.1 [facility] Comment on above: Order Comment: Call MD with results STAT Result Comment: Hemo lysis present, Results??could be affected.?? Performed By: #### L 500.2500 ####[facility] [address] [place], [address] Sodium [Moles/Vol] 141 mmol/L Normal 133-145 [facility] Comment on above: Order Comment: Call MD with results STAT Performed By: #### L 500.2500 ####[facility] [address] [place], [address] Urea nitrogen [Mass/Vol] 10 mg/dL Normal 4-19 [facility] Comment on above: Order Comment: Call MD with results STAT Performed By: #### L 500.2500 ####[facility] [address] [place], [address] BUN/CRE 11.9 RATIO Normal 10-20 [facility] Comment on above: Order Comment: Call MD with results STAT Performed By: #### L 500.2500 ####[facility] [address] [place], [address] Calcium [Mass/Vol] 8.1 mg/dL Normal 7.6-11.0 [facility] Comment on above: Order Comment: Call MD with results STAT Performed By: #### L 500.2500 ####[facility] [address] [place], [address] Chloride [Moles/Vol] 104 mmol/L Normal 98-108 [facility] Comment on above: Order Comment: Call MD with results STAT Performed By: #### L 500.2500 ####[facility] [address] [place], [address] CO2 [Moles/Vol] 24.0 mmol/L Normal 21.0-32.0 [facility] Comment on above: Order Comment: Call MD with results STAT Performed By: #### L 500.2500 ####[facility] [address] [place], [address] Creatinine [Mass/Vol] 0.94 mg/dL Normal 0.70-1.20 [facility] Comment on above: Order Comment: Call MD with results STAT Performed By: #### L 500.2500 ####[facility] [address] [place], [address] ECRCL 106.80 ml/min Normal 50-250 [facility] Comment on above: Order Comment: Call MD with results STAT Performed By: #### L 500.2500 ####[facility] [address] [place], [address] GAP 11 Normal 5-15 [facility] Comment on above: Order Comment: Call MD with results STAT Performed By: #### L 500.2500 ####[facility] [address] [place], [address] GFR/1.73 sq M.predicted among non-blacks MDRD (S/P/Bld) [Vol rate/Area] 83 mL/min/{1.73_m2} Normal >60 [facility] Comment on above: Order Comment: Call MD with results STAT Result Comment: mL/m in/1.73m2 CKD-EPI Creatinine Equation (2020) Performed By: #### L 500.2500 ####[facility] [address] [place], [address] Glucose [Mass/Vol] 185 mg/dL High 70-99 [facility] Comment on above: Order Comment: Call MD with results STAT Performed By: #### L 500.2500 ####[facility] [address] [place], [address] Potassium [Moles/Vol] 3.5 mmol/L Normal 3.3-5.1 [facility] Comment on above: Order Comment: Call MD with results STAT Performed By: #### L 500.2500 ####[facility] [address] [place], [address] Sodium [Moles/Vol] 139 mmol/L Normal 133-145 [facility] Comment on above: Order Comment: Call MD with results STAT Performed By: #### L 500.2500 ####[facility] [address] [place], [address] Urea nitrogen [Mass/Vol] 11 mg/dL Normal 4-19 [facility] Comment on above: Order Comment: Call MD with results STAT Performed By: #### L 500.2500 ####[facility] [address], [address] BUN/CRE 12.1 RATIO Normal 10-20 [facility] Comment on above: Order Comment: Call MD with results STAT Performed By: #### L 500.2500 ####[facility] [address], [address] Calcium [Mass/Vol] 8.6 mg/dL Normal 7.6-11.0 [facility] Comment on above: Order Comment: Call MD with results STAT Performed By: #### L 500.2500 ####[facility] [address], [address] Chloride [Moles/Vol] 104 mmol/L Normal 98-108 [facility] Comment on above: Order Comment: Call MD with results STAT Performed By: #### L 500.2500 ####[facility] [address], [address] CO2 [Moles/Vol] 24.0 mmol/L Normal 21.0-32.0 [facility] Comment on above: Order Comment: Call MD with results STAT Performed By: #### L 500.2500 ####[facility] [address], [address] Creatinine [Mass/Vol] 1.03 mg/dL Normal 0.70-1.20 [facility] Comment on above: Order Comment: Call MD with results STAT Performed By: #### L 500.2500 ####[facility] [address] [place], [address] ECRCL 97.47 ml/min Normal 50-250 [facility] Comment on above: Order Comment: Call MD with results STAT Performed By: #### L 500.2500 ####[facility] [address], [address] GAP 13 Normal 5-15 [facility] Comment on above: Order Comment: Call MD with results STAT Performed By: #### L 500.2500 ####[facility] [address] [place], [address] GFR/1.73 sq M.predicted among non-blacks MDRD (S/P/Bld) [Vol rate/Area] 74 mL/min/{1.73_m2} Normal >60 [facility] Comment on above: Order Comment: Call MD with results STAT Result Comment: mL/m in/1.73m2 CKD-EPI Creatinine Equation (2020) Performed By: #### L 500.2500 ####[facility] [address] [place], [address] Glucose [Mass/Vol] 133 mg/dL High 70-99 [facility] Comment on above: Order Comment: Call MD with results STAT Performed By: #### L 500.2500 ####[facility] [address] [place], [address] Potassium [Moles/Vol] 3.4 mmol/L Normal 3.3-5.1 [facility] Comment on above: Order Comment: Call MD with results STAT Performed By: #### L 500.2500 ####[facility] [address] [place], [address] Sodium [Moles/Vol] 141 mmol/L Normal 133-145 [facility] Comment on above: Order Comment: Call MD with results STAT Performed By: #### L 500.2500 ####[facility] [address] [place], [address] Urea nitrogen [Mass/Vol] 13 mg/dL Normal 4-19 [facility] Comment on above: Order Comment: Call MD with results STAT Performed By: #### L 500.2500 ####[facility] [address] [place], [address] BUN Normal 4-19 [facility] Comment on above: Result Comment: DUPL ICATE Performed By: #### L 500.2500 ####[facility] [address] [place], [address] Performed By: #### L 500.2500, L100.0100 ####[facility] [address] [place], [address] BUN/CRE Normal 10-20 [facility] Comment on above: Result Comment: DUPL ICATE Performed By: #### L 500.2500 ####[facility] [address] [place], [address] Performed By: #### L 500.2500, L100.0100 ####[facility] [address] [place], [address] Calcium Normal 7.6-11.0 [facility] Comment on above: Result Comment: DUPL ICATE Performed By: #### L 500.2500 ####[facility] [address] [place], [address] Performed By: #### L 500.2500, L100.0100 ####[facility] [address] [place], [address] CL Normal 98-108 [facility] Comment on above: Result Comment: DUPL ICATE Performed By: #### L 500.2500 ####[facility] [address] [place], [address] Performed By: #### L 500.2500, L100.0100 ####[facility] [address] [place], [address] CO2 Normal 21.0-32.0 [facility] Comment on above: Result Comment: DUPL ICATE Performed By: #### L 500.2500 ####[facility] [address] [place], [address] Performed By: #### L 500.2500, L100.0100 ####[facility] [address] [place], [address] CREAT,SERUM Normal 0.70-1.20 [facility] Comment on above: Result Comment: DUPL ICATE Performed By: #### L 500.2500 ####[facility] [address] [place], [address] Performed By: #### L 500.2500, L100.0100 ####[facility] [address] [place], [address] eGFR Normal >60 [facility] Comment on above: Result Comment: DUPL ICATE Performed By: #### L 500.2500 ####[facility] [address] [place], [address] Performed By: #### L 500.2500, L100.0100 ####[facility] [address] [place], [address] GAP Normal 5-15 [facility] Comment on above: Result Comment: DUPL ICATE Performed By: #### L 500.2500 ####[facility] [address] [place], [address] Performed By: #### L 500.2500, L100.0100 ####[facility] [address] [place], [address] GLU Normal 70-99 [facility] Comment on above: Result Comment: DUPL ICATE Performed By: #### L 500.2500 ####[facility] [address] [place], [address] Performed By: #### L 500.2500, L100.0100 ####[facility] [address] [place], [address] Potassium Normal 3.3-5.1 [facility] Comment on above: Result Comment: DUPL ICATE Performed By: #### L 500.2500 ####[facility] [address] [place], [address] Performed By: #### L 500.2500, L100.0100 ####[facility] [address] [place], [address] Basic Metabolic Profile (BMP) Normal 133-145 [facility] Comment on above: Result Comment: DUPL ICATE Performed By: #### L 500.2500 ####[facility] [address] [place], [address] Performed By: #### L 500.2500, L100.0100 ####[facility] [address] [place], [address] Basophil percentageOrdered B y: Poli Barfield on 12-30-2024 Basophils/100 WBC (Bld) 0.3 % 0-[address] [facility] Bedside Glucoseon 12-30-2024 FINGERSTICK GLU 135 mg/dL High 74-106 [facility] Comment on above: Result Comment: BULL GEMENT OF PATIENT CARE PER NURSING PROTOCOL Performed By: #### L 501.080 ####[facility] [address] [place], [address] FINGERSTICK GLU 109 mg/dL High 74-106 [facility] Comment on above: Result Comment: BULL GEMENT OF PATIENT CARE PER NURSING PROTOCOL Performed By: #### L 501.080 ####[facility] [address] [place], [address] FINGERSTICK GLU 96 mg/dL Normal 74-106 [facility] Comment on above: Result Comment: BULL GEMENT OF PATIENT CARE PER NURSING PROTOCOL Performed By: #### L 501.080 ####[facility] [address] [place], [address] FINGERSTICK GLU 108 mg/dL High 74-106 [facility] Comment on above: Result Comment: BULL GEMENT OF PATIENT CARE PER NURSING PROTOCOL Performed By: #### L 501.080 ####[facility] [address] [place], [address] FINGERSTICK GLU 179 mg/dL High 74-106 [facility] Comment on above: Result Comment: BULL GEMENT OF PATIENT CARE PER NURSING PROTOCOL Performed By: #### L 501.080 ####[facility] [address] [place], [address] FINGERSTICK GLU 167 mg/dL High 74-106 [facility] Comment on above: Result Comment: BULL GEMENT OF PATIENT CARE PER NURSING PROTOCOL Performed By: #### L 501.080 ####[facility] [address] [place], [address] FINGERSTICK GLU 131 mg/dL High 74-106 [facility] Comment on above: Result Comment: BULL GEMENT OF PATIENT CARE PER NURSING PROTOCOL Performed By: #### L 501.080 ####[facility] [address] [place], [address] FINGERSTICK GLU 99 mg/dL Normal 74-106 [facility] Comment on above: Result Comment: BULL GEMENT OF PATIENT CARE PER NURSING PROTOCOL Performed By: #### L 501.080 ####[facility] [address] [place], [address] FINGERSTICK GLU 129 mg/dL High 74-106 [facility] Comment on above: Result Comment: BULL [place]AY[place] OF PATIENT CARE PER NURSING PROTOCOL Performed By: #### L 501.080 ####[facility] [address] [place], [address] Beta-Hydroxbytyrateon 2024 BETA-HYDROXYBUT 0.6 mmol/L High 0.0-0.3 [facility] Comment on above: Performed By: #### L 501.6901 ####[facility] [address] [place], [address] BETA-HYDROXYBUT 0.3 mmol/L Normal 0.0-0.3 [facility] Comment on above: Performed By: #### L 501.6901 ####[facility] [address] [place], [address] Bilirubin Test strip Ql (U)O rdered By: Poli Barfield on 12-30-2024 Bilirubin Ql (U) 3 mg/dL High Negative [facility] Comment on above: COLOR OF URINE MAY A FFECT DIPSTICK RESULTS. Bilirubin, totalOrdered By: Poli Barfield on 12-30-2024 Bilirubin [Mass/Vol] 0.65 mg/dL 0.00-1.30 [facility] CBC W/Diff, Automatedon - Absolute Neut Normal 2.0-7.7 [facility] Comment on above: Result Comment: DUPL ICATE Performed By: #### L 500.2500, L100.0100 ####[facility] [address] [place], [address] HCT Normal 37-47 [facility] Comment on above: Result Comment: DUPL ICATE Performed By: #### L 500.2500, L100.0100 ####[facility] [address] [place], [address] HGB Normal 12.0-15.0 [facility] Comment on above: Result Comment: DUPL ICATE Performed By: #### L 500.2500, L100.0100 ####[facility] [address] [place], [address] MCH Normal 27.0-32.0 [facility] Comment on above: Result Comment: DUPL ICATE Performed By: #### L 500.2500, L100.0100 ####[facility] [address] [place], [address] MCHC Normal 32-36 [facility] Comment on above: Result Comment: DUPL ICATE Performed By: #### L 500.2500, L100.0100 ####[facility] [address] [place], [address] MCV Normal 81-99 [facility] Comment on above: Result Comment: DUPL ICATE Performed By: #### L 500.2500, L100.0100 ####[facility] [address] [place], [address] NEUT% Normal 47-70 [facility] Comment on above: Result Comment: DUPL ICATE Performed By: #### L 500.2500, L100.0100 ####[facility] [address] [place], [address] PLT Normal 150-450 [facility] Comment on above: Result Comment: DUPL ICATE Performed By: #### L 500.2500, L100.0100 ####[facility] [address] [place], [address] RBC Normal 4.2-5.4 [facility] Comment on above: Result Comment: DUPL ICATE Performed By: #### L 500.2500, L100.0100 ####[facility] [address] [place], [address] RDW CV Normal 11.6-14.6 [facility] Comment on above: Result Comment: DUPL ICATE Performed By: #### L 500.2500, L100.0100 ####[facility] [address] [place], [address] RDW SD Normal 35.1-43.9 [facility] Comment on above: Result Comment: DUPL ICATE Performed By: #### L 500.2500, L100.0100 ####[facility] [address] [place], [address] WBC Normal 4.4-11.0 [facility] Comment on above: Result Comment: DUPL ICATE Performed By: #### L 500.2500, L100.0100 ####[facility] [address] [place], [address] Absolute Lymph 3.14 X10 3/uL Normal 0.83-4.51 [facility] Comment on above: Performed By: #### L 100.0100, L500.4050, L501.2450, L505.5000, L700.6800 ####[facility] [address] [place], [address] Absolute Neut 9.4 X10 3/uL High 2.0-7.7 [facility] Comment on above: Performed By: #### L 100.0100, L500.4050, L501.2450, L505.5000, L700.6800 ####[facility] [address] [place], [address] Basophils/100 WBC (Bld) 0.3 % Normal 0-[address] [facility] Comment on above: Performed By: #### L 100.0100, L500.4050, L501.2450, L505.5000, L700.6800 ####[facility] [address] [place], [address] Eosinophils/100 WBC (Bld) 0.0 % Normal 0-5 [facility] Comment on above: Performed By: #### L 100.0100, L500.4050, L501.2450, L505.5000, L700.6800 ####[facility] [address] [place], [address] Erythrocyte distribution width (RBC) [Ratio] 14.3 % Normal 11.6-14.6 [facility] Comment on above: Performed By: #### L 100.0100, L500.4050, L501.2450, L505.5000, L700.6800 ####[facility] [address] [place], [address] Hematocrit (Bld) [Volume fraction] 39.2 % Normal 37-47 [facility] Comment on above: Performed By: #### L 100.0100, L500.4050, L501.2450, L505.5000, L700.6800 ####[facility] [address] [place], [address] Hemoglobin (Bld) [Mass/Vol] 13.2 g/dL Normal 12.0-15.0 [facility] Comment on above: Performed By: #### L 100.0100, L500.4050, L501.2450, L505.5000, L700.6800 ####[facility] [address] [place], [address] IG% 0.600 Normal 0.0-0.9 [facility] Comment on above: Result Comment: IG% - Immature Granulocytes (promyelocytes, myelocytes andmetamyelocytes) > 1% indicates that a LEFT SHIFT is Present. Performed By: #### L 100.0100, L500.4050, L501.2450, L505.5000, L700.6800 ####[facility] [address] [place], [address] Lymphocytes/100 WBC (Bld) 23.6 % Normal 19-41 [facility] Comment on above: Performed By: #### L 100.0100, L500.4050, L501.2450, L505.5000, L700.6800 ####[facility] [address] [place], [address] MCH (RBC) [Entitic mass] 27.6 pg Normal 27.0-32.0 [facility] Comment on above: Performed By: #### L 100.0100, L500.4050, L501.2450, L505.5000, L700.6800 ####[facility] [address] [place], [address] MCHC (RBC) [Mass/Vol] 33.7 g/dL Normal 32-36 [facility] Comment on above: Performed By: #### L 100.0100, L500.4050, L501.2450, L505.5000, L700.6800 ####[facility] [address] [place], [address] MCV (RBC) [Entitic vol] 81.8 fL Normal 81-99 [facility] Comment on above: Performed By: #### L 100.0100, L500.4050, L501.2450, L505.5000, L700.6800 ####[facility] [address] [place], [address] Monocytes/100 WBC (Bld) 4.8 % Normal 0-10 [facility] Comment on above: Performed By: #### L 100.0100, L500.4050, L501.2450, L505.5000, L700.6800 ####[facility] [address] [place], [address] Neutrophils/100 WBC (Bld) 70.7 % High 47-70 [facility] Comment on above: Performed By: #### L 100.0100, L500.4050, L501.2450, L505.5000, L700.6800 ####[facility] [address] [place], [address] Nucleated RBC (Bld) [#/Vol] 0 10*3/uL Normal 0-5 [facility] Comment on above: Performed By: #### L 100.0100, L500.4050, L501.2450, L505.5000, L700.6800 ####[facility] [address] [place], [address] Platelet mean volume (Bld) [Entitic vol] 9.7 fL Normal 6.2-12.0 [facility] Comment on above: Performed By: #### L 100.0100, L500.4050, L501.2450, L505.5000, L700.6800 ####[facility] [address] [place], [address] Platelets (Bld) [#/Vol] 430 10*3/uL Normal 150-450 [facility] Comment on above: Performed By: #### L 100.0100, L500.4050, L501.2450, L505.5000, L700.6800 ####[facility] [address] [place], [address] RBC (Bld) [#/Vol] 4.79 10*6/uL Normal 4.2-5.4 [facility] Comment on above: Performed By: #### L 100.0100, L500.4050, L501.2450, L505.5000, L700.6800 ####[facility] [address] [place], [address] RDW SD 41.4 fl Normal 35.1-43.9 [facility] Comment on above: Performed By: #### L 100.0100, L500.4050, L501.2450, L505.5000, L700.6800 ####[facility] [address] [place], [address] WBC (Bld) [#/Vol] 13.3 10*3/uL High 4.4-11.0 [facility] Comment on above: Performed By: #### L 100.0100, L500.4050, L501.2450, L505.5000, L700.6800 ####[facility] [address] [place], [address] CO2 (BldV) [Moles/Vol]Ordere d By: David Bain on 12-30-2024 CO2 [Moles/Vol] 30 mmol/L 23-33 [facility] Carbon dioxide, total [Moles /volume] in Central venous bloodOrdered By: Poli Barfield on 12-30-2024 CO2 [Moles/Vol] 19.2 mmol/L Low 21.0-32.0 [facility] Chloride assayOrdered By: Demetrio Barfield on 12-30-2024 Chloride [Moles/Vol] 97 mmol/L Low 98-108 [facility] Comprehensive Metabolic Prof ilon 12-30-2024 Albumin [Mass/Vol] 4.2 g/dL Normal 3.5-5.0 [facility] Comment on above: Performed By: #### L 100.0100, L500.4050, L501.2450, L505.5000, L700.6800 ####[facility] [address] [place], [address] Albumin/Globulin [Mass ratio] 0.9 {ratio} Normal 0.9-2.4 [facility] Comment on above: Performed By: #### L 100.0100, L500.4050, L501.2450, L505.5000, L700.6800 ####[facility] [address] [place], [address] ALK PHOS 91 U/L Normal 35-104 [facility] Comment on above: Performed By: #### L 100.0100, L500.4050, L501.2450, L505.5000, L700.6800 ####[facility] [address] [place], [address] ALT [Catalytic activity/Vol] 12 U/L Normal <=34 [facility] Comment on above: Performed By: #### L 100.0100, L500.4050, L501.2450, L505.5000, L700.6800 ####[facility] [address] [place], [address] AST [Catalytic activity/Vol] 16 U/L Normal <=31 [facility] Comment on above: Performed By: #### L 100.0100, L500.4050, L501.2450, L505.5000, L700.6800 ####[facility] [address] [place], [address] Bilirubin [Mass/Vol] 0.65 mg/dL Normal 0.00-1.30 [facility] Comment on above: Performed By: #### L 100.0100, L500.4050, L501.2450, L505.5000, L700.6800 ####[facility] [address] [place], [address] BUN/CRE 11.1 RATIO Normal 10-20 [facility] Comment on above: Performed By: #### L 100.0100, L500.4050, L501.2450, L505.5000, L700.6800 ####[facility] [address] [place], [address] Calcium [Mass/Vol] 9.7 mg/dL Normal 7.6-11.0 [facility] Comment on above: Performed By: #### L 100.0100, L500.4050, L501.2450, L505.5000, L700.6800 ####[facility] [address], [address] Chloride [Moles/Vol] 97 mmol/L Low 98-108 [facility] Comment on above: Performed By: #### L 100.0100, L500.4050, L501.2450, L505.5000, L700.6800 ####[facility] [address] [place], [address] CO2 [Moles/Vol] 19.2 mmol/L Low 21.0-32.0 [facility] Comment on above: Performed By: #### L 100.0100, L500.4050, L501.2450, L505.5000, L700.6800 ####[facility] [address] [place], [address] Creatinine [Mass/Vol] 1.22 mg/dL High 0.70-1.20 [facility] Comment on above: Performed By: #### L 100.0100, L500.4050, L501.2450, L505.5000, L700.6800 ####[facility] [address] [place], [address] ECRCL 81.50 ml/min Normal 50-250 [facility] Comment on above: Performed By: #### L 100.0100, L500.4050, L501.2450, L505.5000, L700.6800 ####[facility] [address] [place], [address] GAP 20 High 5-15 [facility] Comment on above: Performed By: #### L 100.0100, L500.4050, L501.2450, L505.5000, L700.6800 ####[facility] [address] [place], [address] GFR/1.73 sq M.predicted among non-blacks MDRD (S/P/Bld) [Vol rate/Area] 60 mL/min/{1.73_m2} Normal >60 [facility] Comment on above: Result Comment: mL/m in/1.73m2 CKD-EPI Creatinine Equation (2020) Performed By: #### L 100.0100, L500.4050, L501.2450, L505.5000, L700.6800 ####[facility] [address] [place], [address] Globulin (S) [Mass/Vol] 4.4 g/dL High 2.2-4.2 [facility] Comment on above: Performed By: #### L 100.0100, L500.4050, L501.2450, L505.5000, L700.6800 ####[facility] [address] [place], [address] Glucose [Mass/Vol] 359 mg/dL High 70-99 [facility] Comment on above: Performed By: #### L 100.0100, L500.4050, L501.2450, L505.5000, L700.6800 ####[facility] [address] [place], [address] Potassium [Moles/Vol] 3.4 mmol/L Normal 3.3-5.1 [facility] Comment on above: Performed By: #### L 100.0100, L500.4050, L501.2450, L505.5000, L700.6800 ####[facility] [address] [place], [address] Sodium [Moles/Vol] 137 mmol/L Normal 133-145 [facility] Comment on above: Performed By: #### L 100.0100, L500.4050, L501.2450, L505.5000, L700.6800 ####[facility] [address] [place], [address] T PROT 8.6 g/dL High 5.9-8.4 [facility] Comment on above: Performed By: #### L 100.0100, L500.4050, L501.2450, L505.5000, L700.6800 ####[facility] [address] [place], [address] Urea nitrogen [Mass/Vol] 14 mg/dL Normal 4-19 [facility] Comment on above: Performed By: #### L 100.0100, L500.4050, L501.2450, L505.5000, L700.6800 ####[facility] [address] [place], [place], [address] Emergency Department Summary on 12-30-2024 Emergency Department Summary Normal [facility] Eosinophil percentageOrdered By: Poli Barfield on 12-30-2024 Eosinophils/100 WBC (Bld) 0.0 % 0-5 [facility] Erythrocyte distribution wid th ratioOrdered By: Poli Barfield on 12-30-2024 Erythrocyte distribution width (RBC) [Ratio] 14.3 % 11.6-14.6 [facility] Erythrocyte distribution wid th standard deviationOrdered By: Poli Barfield on 12-30-2024 Erythrocyte distribution width (RBC) [Ratio] 41.4 fl 35.1-43.9 [facility] Glomerular filtration rate ( GFR) estimation/1.73 sq m using serum, plasma, or whole bOrdered By: Poli Barfield on 12-30-2024 GFR/1.73 sq M.predicted among non-blacks MDRD (S/P/Bld) [Vol rate/Area] 60 mL/min/{1.73_m2} >60 [facility] Comment on above: mL/min/1.73m2 CKD-EP I Creatinine Equation (2020) H AND P Exam - [facility] 12-30-2024 H&P Exam - Hospitalist Normal [facility] Hematocrit Auto (Bld) [Volum e fraction]Ordered By: Poli Barfield on 12-30-2024 Hematocrit (Bld) [Volume fraction] 39.2 % 37-47 [facility] Hemoglobin measurementOrdere d By: Poli Barfield on 12-30-2024 Hemoglobin (Bld) [Mass/Vol] 13.2 g/dL 12.0-15.0 [facility] Immature granulocytes/100 WB C Auto (Bld)Ordered By: Poli Barfield on 12-30-2024 Immature granulocytes/100 WBC (Bld) 0.600 % 0.0-0.9 [facility] Comment on above: IG% - Immature Granu locytes (promyelocytes, myelocytes and metamyelocytes) > 1% indicates that a LEFT SHIFT is Present. Ketones Test strip Ql (U)Ord ered By: Poli Barfield on 12-30-2024 Ketones Ql (U) 50 mg/dl High Negative [facility] Laboratory - Chemistry and C hemistry - challengeOrdered By: Poli Barfield on 12-30-2024 AST [Catalytic activity/Vol] 16 U/L <32 [facility] Lipaseon 12-30-2024 Lipase [Catalytic activity/Vol] 25 U/L Normal 13-75 [facility] Comment on above: Result Comment: Plelori faulkner note:LIPASE revised reference range effective 22.New Lipase methodology. Expected to produce lower valuesthan the previous assay method.NEW Reference Range: 13 - 75 U/L Performed By: #### L 100.0100, L500.4050, L501.2450, L505.5000, L700.6800 ####[facility] [address] [place], [place], [id number] Lipase measurementOrdered By : Poli Barfield on 12-30-2024 Lipase [Catalytic activity/Vol] 25 U/L 13-75 [facility] Comment on above: Please note:LIPASE r evised reference range effective 22. New Lipase methodology. Expected to produce lower values than the previous assay method. NEW Reference Range: 13 - 75 U/L MCV (mean corpuscular volume ) determinationOrdered By: Poli Barfield on 12-30-2024 MCV (RBC) [Entitic vol] 81.8 fL 81-[address] [facility] Magnesiumon 12-30-2024 Magnesium [Mass/Vol] 1.8 mg/dL Normal 1.5-2.2 [facility] Comment on above: Performed By: #### L 501.5200, L501.7300, L501.2300 ####[facility] [address] [place], [address] Magnesium measurement (mass/ volume)Ordered By: David Bain on 12-30-2024 Magnesium (Unsp spec) [Mass/Vol] 1.8 mg/dL 1.5-2.2 [facility] Mean corpuscular hemoglobin (MCH) determinationOrdered By: Poli Barfield on 12-30-2024 MCH (RBC) [Entitic mass] 27.6 pg 27.0-32.0 [facility] Mean corpuscular hemoglobin concentration (MCHC) determinationOrdered By: Poli Barfield on 12-30-2024 MCHC (RBC) [Mass/Vol] 33.7 g/dL 32-36 [facility] Mean platelet volume determi nationOrdered By: Poli Barfield on 12-30-2024 Platelet mean volume (Bld) [Entitic vol] 9.7 fL 6.2-12.0 [facility] Microscopic analysis of urin e for red blood cells (RBC)Ordered By: Poli Barfield on 12-30-2024 Microscopic analysis of urine for red blood cells (RBC) 0 SEEN /hpf 0-5 [facility] Monocyte percentageOrdered B y: Poli Barfield on 12-30-2024 Monocytes/100 WBC (Bld) 4.8 % 0-10 [facility] Mucus LM Ql (Urine sed)Order ed By: Poli Barfield on 12-30-2024 Mucus Ql (Urine sed) 0 SEEN /hpf [facility] Neutrophil percentageOrdered By: Poli Barfield on 12-30-2024 Neutrophils/100 WBC (Bld) 70.7 % High 47-70 [facility] Nitrite Test strip Ql (U)Ord ered By: Poli Barfield on 12-30-2024 Nitrite Ql (U) Negative Negative [facility] No Panel InformationOrdered By: David Bain on 12-30-2024 Blood Gas Sample Site Not entered [facility] Blood Gas Specimen Type ESTRELLA [facility] Oxygen Delivery Device Room Air [facility] ESTRELLA [facility] Not entered [facility] Room Air [facility] No Panel InformationOrdered By: Poli Barfield on 12-30-2024 Urine Buprenorphine Qualitative Negative < 200 ng/mL [facility] Urine Oxycodone Screen Negative < 100 ng/mL [facility] Negative < 200 ng/mL [facility] 16 U/L <32 [facility] Nucleated red blood cell per centageOrdered By: Poli Barfield on 12-30-2024 Nucleated RBC/100 WBC (Bld) [Ratio] 0 % 0-5 [facility] Osmolality, Serumon 12-31-19 25 OSMOLALITY,SER 302 mOsm/KG High 275-295 [facility] Comment on above: Order Comment: Comme nts: Add to ER Lab draw Performed By: #### L 501.5200, L501.7300, L501.2300 ####[facility] [address] [place], [address] Phosphoruson 12-30-2024 Phosphate [Mass/Vol] 1.5 mg/dL Low 2.7-4.5 [facility] Comment on above: Performed By: #### L 501.5200, L501.7300, L501.2300 ####[facility] [address] [place], [address] Platelet countOrdered By: Demetrio Barfield on 12-30-2024 Platelets (Bld) [#/Vol] 430 10*3/uL 150-450 [facility] Potassium measurement (mass/ volume)Ordered By: Poli Barfield on 12-30-2024 Potassium (Unsp spec) [Mass/Vol] 3.4 mmol/L 3.3-5.1 [facility] ,Serum,hCG Quali.on 12-30-2024 HCG, SERUM QUAL Negative Normal [facility] Comment on above: Performed By: #### L 100.0100, L500.4050, L501.2450, L505.5000, L700.6800 ####[facility] [address] [place], [address] Protein Test strip Ql (U)Ord ered By: Poli Barfield on 12-30-2024 Protein Ql (U) 30 mg/dl High Negative [facility] Quantitative urine opiates m easurementOrdered By: Poli Barfield on 12-30-2024 Opiates Ql (U) Negative < 300 ng/mL [facility] RBC Auto (Bld) [#/Vol]Ordere d By: Poli Barfield on 12-30-2024 RBC (Bld) [#/Vol] 4.79 10*6/uL 4.2-5.4 [facility] Screening urine fentanyl kedar surementOrdered By: Poli Barfield on 12-30-2024 fentaNYL Screen Ql (U) Negative [facility] Serum beta-hCG test, qualita tiveOrdered By: Poli Barfield on 12-30-2024 Beta HCG ( test) Ql Negative [facility] Serum creatinine measurement (mass/volume)Ordered By: Poli Barfield on 12-30-2024 Creatinine [Mass/Vol] 1.22 mg/dL High 0.70-1.20 [facility] Serum globulin measurementOr dered By: Poli Barfield on 12-30-2024 Globulin (S) [Mass/Vol] 4.4 g/dL High 2.2-4.[address] [facility] Serum glucose measurement (m ass/volume)Ordered By: Poli Barfield on 12-30-2024 Glucose [Mass/Vol] 359 mg/dL High 70-99 [facility] Serum or plasma alanine jordan otransferase (ALT) measurementOrdered By: Poli Barfield on 12-30-2024 ALT [Catalytic activity/Vol] 12 U/L <35 [facility] Serum or plasma albumin hussein urement (mass/volume)Ordered By: Poli Barfield on 12-30-2024 Albumin [Mass/Vol] 4.2 g/dL 3.5-5.0 [facility] Serum or plasma albumin/glob ulin mass ratioOrdered By: Poli Barfield on 12-30-2024 Albumin/Globulin [Mass ratio] 0.9 {ratio} 0.9-2.4 [facility] Serum or plasma alkaline bradley sphatase measurementOrdered By: Poli Barfield on 12-30-2024 ALP [Catalytic activity/Vol] 91 U/L 35-104 [facility] Serum or plasma calcium hussein urement (mass/volume)Ordered By: Poli Barfield on 12-30-2024 Calcium [Mass/Vol] 9.7 mg/dL 7.6-11.0 [facility] Serum or plasma urea nitroge n measurement (mass/volume)Ordered By: Poli Barfield on 12-30-2024 Urea nitrogen [Mass/Vol] 14 mg/dL 4-19 [facility] Sodium levelOrdered By: Poli Barfield on 12-30-2024 Sodium [Moles/Vol] 137 mmol/L 133-145 [facility] Squamous epithelial cells de tection in urine sediment by light microscopyOrdered By: Poli Barfield on 12-30-2024 Epithelial cells.squamous LM Ql (Urine sed) 10-25 SEEN /hpf - [facility] Total proteinOrdered By: Devon Barfield on 12-30-2024 Protein [Mass/Vol] 8.6 g/dL High 5.9-8.4 [facility] Urinalysis, Completeon 12-30 EPI,SQUAMOUS 10-25 SEEN Normal - [facility] Comment on above: Order Comment: CLEAN CATCH Performed By: #### L 400.0001 ####[facility] [address] [place] [address] WBC 5-10 SEEN Normal 0-5 [facility] Comment on above: Order Comment: CLEAN CATCH Performed By: #### L 400.0001 ####[facility] [address] [place] [address] BACTERIA 0 SEEN Normal None Seen [facility] Comment on above: Order Comment: CLEAN CATCH Performed By: #### L 400.0001 ####[facility] [address] [facility] [address] Mucus Ql (Urine sed) 0 SEEN Normal [facility] Comment on above: Order Comment: CLEAN CATCH Performed By: #### L 400.0001 ####[facility] [address] [place] [id number] RBC 0 SEEN Normal 0-5 [facility] Comment on above: Order Comment: CLEAN CATCH Performed By: #### L 400.0001 ####[facility] [address] [place] [address] Urine Drug Screen (VISTA)on 12-30-2024 AMPHETAMINES Negative Normal <1000 ng/mL [facility] Comment on above: Performed By: #### L 100.0100, L500.4050, L501.2450, L505.5000, L700.6800 ####[facility] [address] [place], [place], [phone] BARBITIURATES Negative Normal < 200 ng/mL [facility] Comment on above: Performed By: #### L 100.0100, L500.4050, L501.2450, L505.5000, L700.6800 ####[facility] [address] [place], [place], [phone] BENZODIAZIPINE Negative Normal < 200 ng/mL [facility] Comment on above: Performed By: #### L 100.0100, L500.4050, L501.2450, L505.5000, L700.6800 ####[facility] [address] [place], [place], [phone] BUP Ur Drug Scr Negative Normal < 200 ng/mL [facility] Comment on above: Performed By: #### L 100.0100, L500.4050, L501.2450, L505.5000, L700.6800 ####[facility] [address] [place], [place], [phone] COCAINE Negative Normal < 300 ng/mL [facility] Comment on above: Performed By: #### L 100.0100, L500.4050, L501.2450, L505.5000, L700.6800 ####[facility] [address] [place], [address] Fentanyl Negative Normal [facility] Comment on above: Performed By: #### L 100.0100, L500.4050, L501.2450, L505.5000, L700.6800 ####[facility] [address] [place], [address] METHADONE Negative Normal < 300 ng/mL [facility] Comment on above: Performed By: #### L 100.0100, L500.4050, L501.2450, L505.5000, L700.6800 ####[facility] [address] [place], [address] OPIATES Negative Normal < 300 ng/mL [facility] Comment on above: Performed By: #### L 100.0100, L500.4050, L501.2450, L505.5000, L700.6800 ####[facility] [address] [place], [address] OXYCODONE Negative Normal < 100 ng/mL [facility] Comment on above: Performed By: #### L 100.0100, L500.4050, L501.2450, L505.5000, L700.6800 ####[facility] [address] [place], [address] PCP Negative Normal < 25 ng/mL [facility] Comment on above: Performed By: #### L 100.0100, L500.4050, L501.2450, L505.5000, L700.6800 ####[facility] [address] [place], [address] THC Positive Normal < 50 ng/mL [facility] Comment on above: Result Comment: If c onfirmation testing is needed, a separate order will berequired to send out testing to the reference laboratory. Performed By: #### L 100.0100, L500.4050, L501.2450, L505.5000, L700.6800 ####[facility] [address] [place], [address] Urine benzodiazepine levelOr dered By: Poli Barfield on 12-30-2024 Benzodiazepines Ql (U) Negative < 200 ng/mL [facility] Urine clarityOrdered By: Devon Barfield on 12-30-2024 Clarity (U) Sl. Cloudy Clear [facility] Urine cocaine levelOrdered B y: Poli Barfield on 12-30-2024 Cocaine Ql (U) Negative < 300 ng/mL [facility] Urine color determinationOrd ered By: Poli Barfield on 12-30-2024 Color (U) Yellow Yellow [facility] Urine cultureOrdered By: Devon Barfield on 12-30-2024 Bacteria identified Cx Nom (U) Positive Abnormal [facility] Urine vctjg-0-bcxbceqqbdldrw abinol (THC) measurementOrdered By: Poli Barfield on 12-30-2024 Cannabinoids Screen Ql (U) Positive < 50 ng/mL [facility] Comment on above: If confirmation test ing is needed, a separate order will be required to send out testing to the reference laboratory. Urine glucose detectionOrder ed By: Poli Barfield on 12-30-2024 Glucose Ql (U) 1000 mg/dl High Normal [facility] Urine leukocyte esterase det ection by dipstickOrdered By: Poli Barfield on 12-30-2024 Leukocyte esterase Test strip Ql (U) 500 /ul High Negative [facility] Urine pHOrdered By: Poli Barfield on 12-30-2024 pH (U) 5.0 [pH] 5.0 - 8.0 [facility] Urine phencyclidine (PCP) de tectionOrdered By: Poli Barfield on 12-30-2024 Phencyclidine Ql (U) Negative < 25 ng/mL [facility] Urine sediment bacteria coun t by microscopy (number/high power field)Ordered By: Poli Barfield on 12-30-2024 Bacteria LM.HPF (Urine sed) [#/Area] 0 /[HPF] None Seen [facility] Urine specific gravity measu rementOrdered By: Poli Barfield on 12-30-2024 Specific gravity (U) [Rel density] 1.025 1.002-1.030 [facility] Urine urobilinogen measureme ntOrdered By: Poli Barfield on 12-30-2024 Urobilinogen Ql (U) 1 mg/dl High Normal [facility] Venous Blood Gason 06-21-202 5 Blood Gas Type ESTRELLA Normal [facility] Comment on above: Performed By: #### L 9000.0810 ####[facility] [address] [place], [address] CO2 [Moles/Vol] 30 mmol/L Normal 23-33 [facility] Comment on above: Performed By: #### L 9000.0810 ####[facility] [address] [place], [address] HCO3 (Bld) [Moles/Vol] 29 mmol/L High 22-26 [facility] Comment on above: Performed By: #### L 9000.0810 ####[facility] [address] [place], [address] O2 Delivery Dev Room Air Normal [facility] Comment on above: Performed By: #### L 9000.0810 ####[facility] [address] [place], [address] SITE Not entered Normal [facility] Comment on above: Performed By: #### L 9000.0810 ####[facility] [address] [place], [address] VBG BE 5 mmol/L High -1.0-3.5 [facility] Comment on above: Performed By: #### L 9000.0810 ####[facility] [address] [place], [address] VBG pCO2 42.2 mmHg Normal 41-51 [facility] Comment on above: Performed By: #### L 9000.0810 ####[facility] [address] [place], [address] VBG pH 7.45 High 7.32-7.42 [facility] Comment on above: Performed By: #### L 9000.0810 ####[facility] [address] [place], [address] VBG PO2 34 mmHg Normal 25-40 [facility] Comment on above: Performed By: #### L 9000.0810 ####[facility] [address] [place], [place], [address] VBG SO2 68 Normal 50-70 [facility] Comment on above: Performed By: #### L 9000.0810 ####[facility] [address] [place], [place], [id number] Venous blood base excess kedra surementOrdered By: David Bain on 12-30-2024 Base excess Calc (BldV) [Moles/Vol] 5 mmol/L High -1.0-3.5 [facility] Venous blood bicarbonate kedar surementOrdered By: David Bain on 12-30-2024 HCO3 (Bld) [Moles/Vol] 29 mmol/L High 22-26 [facility] Venous blood oxygen saturati on measurementOrdered By: David Bain on 12-30-2024 Oxygen saturation in Blood 68 % 50-70 [facility] Venous blood pH measurementO rdered By: David Bain on 12-30-2024 pH (BldV) 7.45 [pH] High 7.32-7.42 [facility] Venous blood partial pressur e of carbon dioxide measurementOrdered By: David Bain on 12-30-2024 CO2 (BldV) [Partial pressure] 42.2 mm[Hg] 41-51 [facility] Venous blood partial pressur e of oxygen measurementOrdered By: David Bain on 12-30-2024 Oxygen (BldV) [Partial pressure] 34 mm[Hg] 25-40 [facility] White blood cell (WBC) count Ordered By: Poli Barfield on 12-30-2024 WBC (Bld) [#/Vol] 13.3 10*3/uL High 4.4-11.0 [facility] White blood cell countOrdere d By: Poli Barfield on 12-30-2024 White blood cell count 5-10 SEEN /hpf 0-5 [facility] Abdomen Limitedon 12-25-2024 Abdomen Limited Normal [facility] Absolute lymphocyte countOrd ered By: Nayana Peter on 12-13-2024 Lymphocytes Auto (Unsp spec) [#/Vol] 3.52 10*3/uL 0.83-4.51 [facility] Absolute neutrophil countOrd ered By: Nayana Peter on 12-13-2024 Neutrophils (Bld) [#/Vol] 5.0 10*3/uL 2.0-7.7 [facility] Anion gap in Serum or Plasma Ordered By: Nayana Peter on 12-13-2024 Anion gap [Moles/Vol] 13 mmol/L 5- [facility] Automated lymphocyte count a s percentage of total leukocytesOrdered By: Nayana Peter on 12-13-2024 Lymphocytes/100 WBC Auto (Unsp spec) 36.7 % - [facility] BUN/creatinine ratioOrdered By: Nayana Petre on 12-13-2024 Urea nitrogen/Creatinine [Mass ratio] 6.2 mg/mg Low 10- [facility] Basophil percentageOrdered B y: Nayana Peter on 12-13-2024 Basophils/100 WBC (Bld) 0.8 % 0-[address] [facility] Bilirubin, totalOrdered By: Nayana Peter on 12-13-2024 Bilirubin [Mass/Vol] 0.30 mg/dL 0.00-1.30 [facility] CBC W/Diff, Automatedon Absolute Lymph 3.52 X10 3/uL Normal 0.83-4.51 [facility] Comment on above: Performed By: #### L 100.0100, L500.4050 ####[facility] [address] [place], [address] Absolute Neut 5.0 X10 3/uL Normal 2.0-7.7 [facility] Comment on above: Performed By: #### L 100.0100, L500.4050 ####[facility] [address] [place], [address] Basophils/100 WBC (Bld) 0.8 % Normal 0-[address] [facility] Comment on above: Performed By: #### L 100.0100, L500.4050 ####[facility] [address] [place], [address] Eosinophils/100 WBC (Bld) 2.0 % Normal 0-5 [facility] Comment on above: Performed By: #### L 100.0100, L500.4050 ####[facility] [address] [place], [address] Erythrocyte distribution width (RBC) [Ratio] 14.0 % Normal 11.6-14.6 [facility] Comment on above: Performed By: #### L 100.0100, L500.4050 ####[facility] [address] [place], [address] Hematocrit (Bld) [Volume fraction] 40.5 % Normal 37-47 [facility] Comment on above: Performed By: #### L 100.0100, L500.4050 ####[facility] [address] [place], [address] Hemoglobin (Bld) [Mass/Vol] 13.2 g/dL Normal 12.0-15.0 [facility] Comment on above: Performed By: #### L 100.0100, L500.4050 ####[facility] [address] [place], [address] IG% 0.800 Normal 0.0-0.9 [facility] Comment on above: Result Comment: IG% - Immature Granulocytes (promyelocytes, myelocytes andmetamyelocytes) > 1% indicates that a LEFT SHIFT is Present. Performed By: #### L 100.0100, L500.4050 ####[facility] [address] [place], [address] Lymphocytes/100 WBC (Bld) 36.7 % Normal 19-41 [facility] Comment on above: Performed By: #### L 100.0100, L500.4050 ####[facility] [address] [place], [address] MCH (RBC) [Entitic mass] 27.1 pg Normal 27.0-32.0 [facility] Comment on above: Performed By: #### L 100.0100, L500.4050 ####[facility] [address], [address] MCHC (RBC) [Mass/Vol] 32.6 g/dL Normal 32-36 [facility] Comment on above: Performed By: #### L 100.0100, L500.4050 ####[facility] [address] [place], [address] MCV (RBC) [Entitic vol] 83.2 fL Normal 81-[address] [facility] Comment on above: Performed By: #### L 100.0100, L500.4050 ####[facility] [address] [place], [address] Monocytes/100 WBC (Bld) 7.5 % Normal 0-10 [facility] Comment on above: Performed By: #### L 100.0100, L500.4050 ####[facility] [address] [place], [address] Neutrophils/100 WBC (Bld) 52.2 % Normal 47-70 [facility] Comment on above: Performed By: #### L 100.0100, L500.4050 ####[facility] [address] [place], [address] Nucleated RBC (Bld) [#/Vol] 0 10*3/uL Normal 0-5 [facility] Comment on above: Performed By: #### L 100.0100, L500.4050 ####[facility] [address] [place], [address] Platelet mean volume (Bld) [Entitic vol] 10.1 fL Normal 6.2-12.0 [facility] Comment on above: Performed By: #### L 100.0100, L500.4050 ####[facility] [address] [place], [address] Platelets (Bld) [#/Vol] 367 10*3/uL Normal 150-450 [facility] Comment on above: Performed By: #### L 100.0100, L500.4050 ####[facility] [address] [place], [address] RBC (Bld) [#/Vol] 4.87 10*6/uL Normal 4.2-5.4 [facility] Comment on above: Performed By: #### L 100.0100, L500.4050 ####[facility] [address] [place], [address] RDW SD 42.3 fl Normal 35.1-43.9 [facility] Comment on above: Performed By: #### L 100.0100, L500.4050 ####[facility] [address] [place], [address] WBC (Bld) [#/Vol] 9.6 10*3/uL Normal 4.4-11.0 [facility] Comment on above: Performed By: #### L 100.0100, L500.4050 ####[facility] [address] [place], [address] Carbon dioxide, total [Moles /volume] in Central venous bloodOrdered By: Nayana Peter on 12-13-2024 CO2 [Moles/Vol] 26.2 mmol/L 21.0-32.0 [facility] Chloride assayOrdered By: Tiffanie Peter on 12-13-2024 Chloride [Moles/Vol] 99 mmol/L 98-108 [facility] Comprehensive Metabolic Prof ilon 12-13-2024 Albumin [Mass/Vol] 3.8 g/dL Normal 3.5-5.0 [facility] Comment on above: Performed By: #### L 100.0100, L500.4050 ####[facility] [address] [place], [address] Albumin/Globulin [Mass ratio] 1.2 {ratio} Normal 0.9-2.4 [facility] Comment on above: Performed By: #### L 100.0100, L500.4050 ####[facility] [address] [place], [address] ALK PHOS 100 U/L Normal 35-104 [facility] Comment on above: Performed By: #### L 100.0100, L500.4050 ####[facility] [address] [place], [address] ALT [Catalytic activity/Vol] 36 U/L High <=34 [facility] Comment on above: Performed By: #### L 100.0100, L500.4050 ####[facility] [address] [place], [address] AST [Catalytic activity/Vol] 37 U/L High <=31 [facility] Comment on above: Performed By: #### L 100.0100, L500.4050 ####[facility] [address] [place], [address] Bilirubin [Mass/Vol] 0.30 mg/dL Normal 0.00-1.30 [facility] Comment on above: Performed By: #### L 100.0100, L500.4050 ####[facility] [address] [place], [address] BUN/CRE 6.2 RATIO Low 10-20 [facility] Comment on above: Performed By: #### L 100.0100, L500.4050 ####[facility] [address] [place], [address] Calcium [Mass/Vol] 8.8 mg/dL Normal 7.6-11.0 [facility] Comment on above: Performed By: #### L 100.0100, L500.4050 ####[facility] [address] [place], [address] Chloride [Moles/Vol] 99 mmol/L Normal 98-108 [facility] Comment on above: Performed By: #### L 100.0100, L500.4050 ####[facility] [address] [place], [address] CO2 [Moles/Vol] 26.2 mmol/L Normal 21.0-32.0 [facility] Comment on above: Performed By: #### L 100.0100, L500.4050 ####[facility] [address] [place], [address] Creatinine [Mass/Vol] 0.86 mg/dL Normal 0.70-1.20 [facility] Comment on above: Performed By: #### L 100.0100, L500.4050 ####[facility] [address] [place], [address] GAP 13 Normal 5-15 [facility] Comment on above: Performed By: #### L 100.0100, L500.4050 ####[facility] [address] [place], [address] GFR/1.73 sq M.predicted among non-blacks MDRD (S/P/Bld) [Vol rate/Area] 92 mL/min/{1.73_m2} Normal >60 [facility] Comment on above: Result Comment: mL/m in/1.73m2 CKD-EPI Creatinine Equation (2020) Performed By: #### L 100.0100, L500.4050 ####[facility] [address] [place], [address] Globulin (S) [Mass/Vol] 3.3 g/dL Normal 2.2-4.2 [facility] Comment on above: Performed By: #### L 100.0100, L500.4050 ####[facility] [address] [place], [address] Glucose [Mass/Vol] 251 mg/dL High 70-99 [facility] Comment on above: Performed By: #### L 100.0100, L500.4050 ####[facility] [address], [address] Potassium [Moles/Vol] 4.0 mmol/L Normal 3.3-5.1 [facility] Comment on above: Performed By: #### L 100.0100, L500.4050 ####[facility] [address], [address] Sodium [Moles/Vol] 139 mmol/L Normal 133-145 [facility] Comment on above: Performed By: #### L 100.0100, L500.4050 ####[facility] [address] [place], [address] T PROT 7.2 g/dL Normal 5.9-8.4 [facility] Comment on above: Performed By: #### L 100.0100, L500.4050 ####[facility] [address], [address] Urea nitrogen [Mass/Vol] 5 mg/dL Normal 4-19 [facility] Comment on above: Performed By: #### L 100.0100, L500.4050 ####[facility] [address], [address] Eosinophil percentageOrdered By: Nayana Peter on 12-13-2024 Eosinophils/100 WBC (Bld) 2.0 % 0-5 [facility] Erythrocyte distribution wid th ratioOrdered By: Nayana Peter on 12-13-2024 Erythrocyte distribution width (RBC) [Ratio] 14.0 % 11.6-14.6 [facility] Erythrocyte distribution wid th standard deviationOrdered By: Nayana Peter on 12-13-2024 Erythrocyte distribution width (RBC) [Ratio] 42.3 fl 35.1-43.9 [facility] Gastroenterology Visit Repor ton 12-13-2024 Gastroenterology Visit Report Normal [facility] Glomerular filtration rate ( GFR) estimation/1.73 sq m using serum, plasma, or whole bOrdered By: Nayana Peter on 12-13-2024 GFR/1.73 sq M.predicted among non-blacks MDRD (S/P/Bld) [Vol rate/Area] 92 mL/min/{1.73_m2} >60 [facility] Comment on above: mL/min/1.73m2 CKD-EP I Creatinine Equation (2020) Hematocrit Auto (Bld) [Volum e fraction]Ordered By: Nayana Peter on 12-13-2024 Hematocrit (Bld) [Volume fraction] 40.5 % 37-47 [facility] Hemoglobin measurementOrdere d By: Nayana Peter on 12-13-2024 Hemoglobin (Bld) [Mass/Vol] 13.2 g/dL 12.0-15.0 [facility] Immature granulocytes/100 WB C Auto (Bld)Ordered By: Nayana Peter on 12-13-2024 Immature granulocytes/100 WBC (Bld) 0.800 % 0.0-0.9 [facility] Comment on above: IG% - Immature Granu locytes (promyelocytes, myelocytes and metamyelocytes) > 1% indicates that a LEFT SHIFT is Present. Laboratory - Chemistry and C hemistry - challengeOrdered By: Nayana Peter on 12-13-2024 AST [Catalytic activity/Vol] 37 U/L High <32 [facility] MCV (mean corpuscular volume ) determinationOrdered By: Nayana Peter on 12-13-2024 MCV (RBC) [Entitic vol] 83.2 fL 81-[address] [facility] Mean corpuscular hemoglobin (MCH) determinationOrdered By: Nayana Peter 12-13-2024 MCH (RBC) [Entitic mass] 27.1 pg 27.0-32.0 [facility] Mean corpuscular hemoglobin concentration (MCHC) determinationOrdered By: Nayana Peter on 12-13-2024 MCHC (RBC) [Mass/Vol] 32.6 g/dL 32-36 [facility] Mean platelet volume determi nationOrdered By: Nayana Peter on 12-13-2024 Platelet mean volume (Bld) [Entitic vol] 10.1 fL 6.2-12.0 [facility] Monocyte percentageOrdered B y: Nayana Peter on 12-13-2024 Monocytes/100 WBC (Bld) 7.5 % 0-[address] [facility] Neutrophil percentageOrdered By: Nayana Peter on 12-13-2024 Neutrophils/100 WBC (Bld) 52.2 % 47-70 [facility] No Panel InformationOrdered By: Nayana Peter on 12-13-2024 37 U/L High <32 [facility] Nucleated red blood cell per centageOrdered By: Nayana Peter on 12-13-2024 Nucleated RBC/100 WBC (Bld) [Ratio] 0 % 0-5 [facility] Platelet countOrdered By: Tiffanie Peter on 12-13-2024 Platelets (Bld) [#/Vol] 367 10*3/uL 150-450 [facility] Potassium measurement (mass/ volume)Ordered By: Nayana Peter on 12-13-2024 Potassium (Unsp spec) [Mass/Vol] 4.0 mmol/L 3.3-5.1 [facility] RBC Auto (Bld) [#/Vol]Ordere d By: Nayana Peter on 12-13-2024 RBC (Bld) [#/Vol] 4.87 10*6/uL 4.2-5.4 [facility] Serum creatinine measurement (mass/volume)Ordered By: Nayana Peter on 12-13-2024 Creatinine [Mass/Vol] 0.86 mg/dL 0.70-1.20 [facility] Serum globulin measurementOr dered By: Nayana Peter on 12-13-2024 Globulin (S) [Mass/Vol] 3.3 g/dL 2.2-4.[address] [facility] Serum glucose measurement (m ass/volume)Ordered By: Nyaana Pteer on 12-13-2024 Glucose [Mass/Vol] 251 mg/dL High 70-99 [facility] Serum or plasma alanine jordan otransferase (ALT) measurementOrdered By: Nayana Peter on 12-13-2024 ALT [Catalytic activity/Vol] 36 U/L High <35 [facility] Serum or plasma albumin hussein urement (mass/volume)Ordered By: Nayana Peter on 12-13-2024 Albumin [Mass/Vol] 3.8 g/dL 3.5-5.0 [facility] Serum or plasma albumin/glob ulin mass ratioOrdered By: Nayana Peter on 12-13-2024 Albumin/Globulin [Mass ratio] 1.2 {ratio} 0.9-2.4 [facility] Serum or plasma alkaline bradley sphatase measurementOrdered By: Nayana Peter on 12-13-2024 ALP [Catalytic activity/Vol] 100 U/L 35-104 [facility] Serum or plasma calcium hussein urement (mass/volume)Ordered By: Nayana Peter on 12-13-2024 Calcium [Mass/Vol] 8.8 mg/dL 7.6-11.0 [facility] Serum or plasma urea nitroge n measurement (mass/volume)Ordered By: Nayana Peter on 12-13-2024 Urea nitrogen [Mass/Vol] 5 mg/dL 4-19 [facility] Sodium levelOrdered By: Oh Peter on 12-13-2024 Sodium [Moles/Vol] 139 mmol/L 133-145 [facility] Total proteinOrdered By: Candie Peter on 12-13-2024 Protein [Mass/Vol] 7.2 g/dL 5.9-8.4 [facility] White blood cell (WBC) count Ordered By: Nayana Peter on 12-13-2024 WBC (Bld) [#/Vol] 9.6 10*3/uL 4.4-11.0 [facility] Culture, Blood (WB)on 2024 CUB Blood cultures x2, f rom two different sites No growth in 5 days. Normal [facility] Comment on above: Performed By: #### M 200.1000, L503.6005 ####[facility] [address] [place], [address] CUB Blood cultures x2, f rom two different sites No growth in 5 days. Normal [facility] Comment on above: Performed By: #### M 200.1000 ####[facility] [address] [place], [address] Absolute lymphocyte countOrd ered By: Gale Lr on 11-28-2024 Lymphocytes Auto (Unsp spec) [#/Vol] 5.24 10*3/uL High 0.83-4.51 [facility] Absolute neutrophil countOrd ered By: Gale Lr on 11-28-2024 Neutrophils (Bld) [#/Vol] 6.1 10*3/uL 2.0-7.7 [facility] Anion gap in Serum or Plasma Ordered By: Gale Lr on 11-28-2024 Anion gap [Moles/Vol] 12 mmol/L 11-23 [facility] Automated lymphocyte count a s percentage of total leukocytesOrdered By: Gale Lr on 11-28-2024 Lymphocytes/100 WBC Auto (Unsp spec) 43.0 % High [facility] BUN/creatinine ratioOrdered By: Gale Lr on 11-28-2024 Urea nitrogen/Creatinine [Mass ratio] 12.2 mg/mg 04-30 [facility] Basic Metabolic Profile (BMP )on 11-28-2024 BUN Normal 10-28 [facility] Comment on above: Result Comment: DUPL ICATE Performed By: #### L 500.2500, L100.0100 ####[facility] [address] [place], [address] BUN/CRE Normal 04-30 [facility] Comment on above: Result Comment: DUPL ICATE Performed By: #### L 500.2500, L100.0100 ####[facility] [address] [place], [address] Calcium Normal 7.6-11.0 [facility] Comment on above: Result Comment: DUPL ICATE Performed By: #### L 500.2500, L100.0100 ####[facility] [address] [place], [address] CL Normal 98-108 [facility] Comment on above: Result Comment: DUPL ICATE Performed By: #### L 500.2500, L100.0100 ####[facility] [address] [place], [address] CO2 Normal 21.0-32.0 [facility] Comment on above: Result Comment: DUPL ICATE Performed By: #### L 500.2500, L100.0100 ####[facility] [address] [place], [address] CREAT,SERUM Normal 0.70-1.20 [facility] Comment on above: Result Comment: DUPL ICATE Performed By: #### L 500.2500, L100.0100 ####[facility] [address] [place], [address] eGFR Normal >60 [facility] Comment on above: Result Comment: DUPL ICATE Performed By: #### L 500.2500, L100.0100 ####[facility] [address] [place], [address] GAP Normal 5-15 [facility] Comment on above: Result Comment: DUPL ICATE Performed By: #### L 500.2500, L100.0100 ####[facility] [address] [place], [address] GLU Normal 70-99 [facility] Comment on above: Result Comment: DUPL ICATE Performed By: #### L 500.2500, L100.0100 ####[facility] [address] [place], [address] Potassium Normal 3.3-5.1 [facility] Comment on above: Result Comment: DUPL ICATE Performed By: #### L 500.2500, L100.0100 ####[facility] [address] [place], [address] Basic Metabolic Profile (BMP) Normal 133-145 [facility] Comment on above: Result Comment: DUPL ICATE Performed By: #### L 500.2500, L100.0100 ####[facility] [address] [place], [address] BUN/CRE 12.2 RATIO Normal 10-20 [facility] Comment on above: Performed By: #### L 100.0100, L500.2500 ####[facility] [address] [place], [address] Calcium [Mass/Vol] 7.9 mg/dL Normal 7.6-11.0 [facility] Comment on above: Performed By: #### L 100.0100, L500.2500 ####[facility] [address] [place], [address] Chloride [Moles/Vol] 104 mmol/L Normal 98-108 [facility] Comment on above: Performed By: #### L 100.0100, L500.2500 ####[facility] [address] [place], [address] CO2 [Moles/Vol] 24.7 mmol/L Normal 21.0-32.0 [facility] Comment on above: Performed By: #### L 100.0100, L500.2500 ####[facility] [address] [place], [address] Creatinine [Mass/Vol] 1.02 mg/dL Normal 0.70-1.20 [facility] Comment on above: Performed By: #### L 100.0100, L500.2500 ####[facility] [address] [place], [address] ECRCL 99.83 ml/min Normal 50-250 [facility] Comment on above: Performed By: #### L 100.0100, L500.2500 ####[facility] [address] [place], [address] GAP 12 Normal 5-15 [facility] Comment on above: Performed By: #### L 100.0100, L500.2500 ####[facility] [address] [place], [address] GFR/1.73 sq M.predicted among non-blacks MDRD (S/P/Bld) [Vol rate/Area] 75 mL/min/{1.73_m2} Normal >60 [facility] Comment on above: Result Comment: mL/m in/1.73m2 CKD-EPI Creatinine Equation (2020) Performed By: #### L 100.0100, L500.2500 ####[facility] [address] [place], [address] Glucose [Mass/Vol] 134 mg/dL High 70-99 [facility] Comment on above: Performed By: #### L 100.0100, L500.2500 ####[facility] [address] [place], [address] Potassium [Moles/Vol] 3.5 mmol/L Normal 3.3-5.1 [facility] Comment on above: Performed By: #### L 100.0100, L500.2500 ####[facility] [address] [place], [address] Sodium [Moles/Vol] 141 mmol/L Normal 133-145 [facility] Comment on above: Performed By: #### L 100.0100, L500.2500 ####[facility] [address] [place], [address] Urea nitrogen [Mass/Vol] 12 mg/dL Normal 4-19 [facility] Comment on above: Performed By: #### L 100.0100, L500.2500 ####[facility] [address] [place], [address] Basophil percentageOrdered B y: Gale Lr on 11-28-2024 Basophils/100 WBC (Bld) 0.6 % 0-[address] [facility] Bedside Glucoseon 11-28-2024 FINGERSTICK GLU 127 mg/dL High 74-106 [facility] Comment on above: Result Comment: BULL [place] OF PATIENT CARE PER NURSING PROTOCOL Performed By: #### L 501.080 ####[facility] [address] [place], [address] CBC W/Diff, Automatedon 11-10 Absolute Neut Normal 2.0-7.7 [facility] Comment on above: Result Comment: DUPL ICATE Performed By: #### L 500.2500, L100.0100 ####[facility] [address] [place], [address] HCT Normal 37-47 [facility] Comment on above: Result Comment: DUPL ICATE Performed By: #### L 500.2500, L100.0100 ####[facility] [address] [place], [address] HGB Normal 12.0-15.0 [facility] Comment on above: Result Comment: DUPL ICATE Performed By: #### L 500.2500, L100.0100 ####[facility] [address] [place], [address] MCH Normal 27.0-32.0 [facility] Comment on above: Result Comment: DUPL ICATE Performed By: #### L 500.2500, L100.0100 ####[facility] [address] [place], [address] MCHC Normal 32-36 [facility] Comment on above: Result Comment: DUPL ICATE Performed By: #### L 500.2500, L100.0100 ####[facility] [address] [place], [address] MCV Normal 81-99 [facility] Comment on above: Result Comment: DUPL ICATE Performed By: #### L 500.2500, L100.0100 ####[facility] [address] [place], [address] NEUT% Normal 47-70 [facility] Comment on above: Result Comment: DUPL ICATE Performed By: #### L 500.2500, L100.0100 ####[facility] [address] [place], [address] PLT Normal 150-450 [facility] Comment on above: Result Comment: DUPL ICATE Performed By: #### L 500.2500, L100.0100 ####[facility] [address] [place], [address] RBC Normal 4.2-5.4 [facility] Comment on above: Result Comment: DUPL ICATE Performed By: #### L 500.2500, L100.0100 ####[facility] [address] [place], [address] RDW CV Normal 11.6-14.6 [facility] Comment on above: Result Comment: DUPL ICATE Performed By: #### L 500.2500, L100.0100 ####[facility] [address] [place], [address] RDW SD Normal 35.1-43.9 [facility] Comment on above: Result Comment: DUPL ICATE Performed By: #### L 500.2500, L100.0100 ####[facility] [address] [place], [address] WBC Normal 4.4-11.0 [facility] Comment on above: Result Comment: DUPL ICATE Performed By: #### L 500.2500, L100.0100 ####[facility] [address] [place], [address] Absolute Lymph 5.24 X10 3/uL High 0.83-4.51 [facility] Comment on above: Performed By: #### L 100.0100, L500.2500 ####[facility] [address] [place], [address] Absolute Neut 6.1 X10 3/uL Normal 2.0-7.7 [facility] Comment on above: Performed By: #### L 100.0100, L500.2500 ####[facility] [address] [place], [address] Basophils/100 WBC (Bld) 0.6 % Normal 0-[address] [facility] Comment on above: Performed By: #### L 100.0100, L500.2500 ####[facility] [address], [address] Eosinophils/100 WBC (Bld) 0.5 % Normal 0-5 [facility] Comment on above: Performed By: #### L 100.0100, L500.2500 ####[facility] [address] [place], [address] Erythrocyte distribution width (RBC) [Ratio] 13.7 % Normal 11.6-14.6 [facility] Comment on above: Performed By: #### L 100.0100, L500.2500 ####[facility] [address] [place], [address] Hematocrit (Bld) [Volume fraction] 37.0 % Normal 37-47 [facility] Comment on above: Performed By: #### L 100.0100, L500.2500 ####[facility] [address] [place], [address] Hemoglobin (Bld) [Mass/Vol] 12.1 g/dL Normal 12.0-15.0 [facility] Comment on above: Performed By: #### L 100.0100, L500.2500 ####[facility] [address] [place], [address] IG% 0.800 Normal 0.0-0.9 [facility] Comment on above: Result Comment: IG% - Immature Granulocytes (promyelocytes, myelocytes andmetamyelocytes) > 1% indicates that a LEFT SHIFT is Present. Performed By: #### L 100.0100, L500.2500 ####[facility] [address] [place], [address] Lymphocytes/100 WBC (Bld) 43.0 % High 19-41 [facility] Comment on above: Performed By: #### L 100.0100, L500.2500 ####[facility] [address] [place], [address] MCH (RBC) [Entitic mass] 27.3 pg Normal 27.0-32.0 [facility] Comment on above: Performed By: #### L 100.0100, L500.2500 ####[facility] [address] [place], [address] MCHC (RBC) [Mass/Vol] 32.7 g/dL Normal 32-36 [facility] Comment on above: Performed By: #### L 100.0100, L500.2500 ####[facility] [address] [place], [address] MCV (RBC) [Entitic vol] 83.3 fL Normal 81-[address] [facility] Comment on above: Performed By: #### L 100.0100, L500.2500 ####[facility] [address] [place], [address] Monocytes/100 WBC (Bld) 5.3 % Normal 0-[address] [facility] Comment on above: Performed By: #### L 100.0100, L500.2500 ####[facility] [address], [address] Neutrophils/100 WBC (Bld) 49.8 % Normal 47-70 [facility] Comment on above: Performed By: #### L 100.0100, L500.2500 ####[facility] [address] [place], [address] Nucleated RBC (Bld) [#/Vol] 0 10*3/uL Normal 0-5 [facility] Comment on above: Performed By: #### L 100.0100, L500.2500 ####[facility] [address] [place], [address] Platelet mean volume (Bld) [Entitic vol] 9.3 fL Normal 6.2-12.0 [facility] Comment on above: Performed By: #### L 100.0100, L500.2500 ####[facility] [address] [place], [address] Platelets (Bld) [#/Vol] 400 10*3/uL Normal 150-450 [facility] Comment on above: Performed By: #### L 100.0100, L500.2500 ####[facility] [address] [place], [address] RBC (Bld) [#/Vol] 4.44 10*6/uL Normal 4.2-5.4 [facility] Comment on above: Performed By: #### L 100.0100, L500.2500 ####[facility] [address] [place], [address] RDW SD 41.8 fl Normal 35.1-43.9 [facility] Comment on above: Performed By: #### L 100.0100, L500.2500 ####[facility] [address] [place], [address] WBC (Bld) [#/Vol] 12.2 10*3/uL High 4.4-11.0 [facility] Comment on above: Performed By: #### L 100.0100, L500.2500 ####[facility] [address] [place], [address] Carbon dioxide, total [Moles /volume] in Central venous bloodOrdered By: Gale Lr on 11-28-2024 CO2 [Moles/Vol] 24.7 mmol/L 21.0-32.0 [facility] Chloride assayOrdered By: Sun Lr on 11-28-2024 Chloride [Moles/Vol] 104 mmol/L 98-108 [facility] Eosinophil percentageOrdered By: Gale Lr on 11-28-2024 Eosinophils/100 WBC (Bld) 0.5 % 0-5 [facility] Erythrocyte distribution wid th ratioOrdered By: Gale Lr on 11-28-2024 Erythrocyte distribution width (RBC) [Ratio] 13.7 % 11.6-14.6 [facility] Erythrocyte distribution wid th standard deviationOrdered By: Gale Lr on 11-28-2024 Erythrocyte distribution width (RBC) [Ratio] 41.8 fl 35.1-43.9 [facility] Glomerular filtration rate ( GFR) estimation/1.73 sq m using serum, plasma, or whole bOrdered By: Gale Lr on 11-28-2024 GFR/1.73 sq M.predicted among non-blacks MDRD (S/P/Bld) [Vol rate/Area] 75 mL/min/{1.73_m2} >60 [facility] Comment on above: mL/min/1.73m2 CKD-EP I Creatinine Equation (2020) Glucose measurement at bedsi deOrdered By: Gale Lr on 11-28-2024 Glucose [Mass/Vol] 127 mg/dL High 74-106 [facility] Comment on above: MANAGEMENT OF PATIEN T CARE PER NURSING PROTOCOL Hematocrit Auto (Bld) [Volum e fraction]Ordered By: Gale Lr on 11-28-2024 Hematocrit (Bld) [Volume fraction] 37.0 % 37-47 [facility] Hemoglobin measurementOrdere d By: Gale Lr on 11-28-2024 Hemoglobin (Bld) [Mass/Vol] 12.1 g/dL 12.0-15.0 [facility] Immature granulocytes/100 WB C Auto (Bld)Ordered By: Gale Lr on 11-28-2024 Immature granulocytes/100 WBC (Bld) 0.800 % 0.0-0.9 [facility] Comment on above: IG% - Immature Granu locytes (promyelocytes, myelocytes and metamyelocytes) > 1% indicates that a LEFT SHIFT is Present. MCV (mean corpuscular volume ) determinationOrdered By: Gale Lr on 11-28-2024 MCV (RBC) [Entitic vol] 83.3 fL 81-99 [facility] Mean corpuscular hemoglobin (MCH) determinationOrdered By: Gale Lr on 11-28-2024 MCH (RBC) [Entitic mass] 27.3 pg 27.0-32.0 [facility] Mean corpuscular hemoglobin concentration (MCHC) determinationOrdered By: Gale Lr on 11-28-2024 MCHC (RBC) [Mass/Vol] 32.7 g/dL 32-36 [facility] Mean platelet volume determi nationOrdered By: Gale Lr on 11-28-2024 Platelet mean volume (Bld) [Entitic vol] 9.3 fL 6.2-12.0 [facility] Monocyte percentageOrdered B y: Gale Lr on 11-28-2024 Monocytes/100 WBC (Bld) 5.3 % 0-[address] [facility] Neutrophil percentageOrdered By: Gale Lr on 11-28-2024 Neutrophils/100 WBC (Bld) 49.8 % 47-70 [facility] Nucleated red blood cell per centageOrdered By: Gale Lr on 11-28-2024 Nucleated RBC/100 WBC (Bld) [Ratio] 0 % 0-5 [facility] Platelet countOrdered By: Sun Lr on 11-28-2024 Platelets (Bld) [#/Vol] 400 10*3/uL 150-450 [facility] Potassium measurement (mass/ volume)Ordered By: Gale Lr on 11-28-2024 Potassium (Unsp spec) [Mass/Vol] 3.5 mmol/L 3.3-5.1 [facility] RBC Auto (Bld) [#/Vol]Ordere d By: Gale Lr on 11-28-2024 RBC (Bld) [#/Vol] 4.44 10*6/uL 4.2-5.4 [facility] Serum creatinine measurement (mass/volume)Ordered By: Gale Lr on 11-28-2024 Creatinine [Mass/Vol] 1.02 mg/dL 0.70-1.20 [facility] Serum glucose measurement (m ass/volume)Ordered By: Gale Lr on 11-28-2024 Glucose [Mass/Vol] 134 mg/dL High 70-99 [facility] Serum or plasma calcium hussein urement (mass/volume)Ordered By: Gale Lr on 11-28-2024 Calcium [Mass/Vol] 7.9 mg/dL 7.6-11.0 [facility] Serum or plasma urea nitroge n measurement (mass/volume)Ordered By: Gale Lr on 11-28-2024 Urea nitrogen [Mass/Vol] 12 mg/dL 4- [facility] Sodium levelOrdered By: Argelia Lr on 11-28-2024 Sodium [Moles/Vol] 141 mmol/L 133-145 [facility] White blood cell (WBC) count Ordered By: Gale Lr on 11-28-2024 WBC (Bld) [#/Vol] 12.2 10*3/uL High 4.4-11.0 [facility] Abdomen/Pelvis WITH Contrast on 11-27-2024 Abdomen/Pelvis WITH Contrast Normal [facility] Basic Metabolic Profile (BMP )on 11-27-2024 BUN/CRE 15.0 RATIO Normal - [facility] Comment on above: Performed By: #### L 500.2500, L100.0100 ####[facility] [address] [place], [address] Calcium [Mass/Vol] 7.9 mg/dL Normal 7.6-11.0 [facility] Comment on above: Performed By: #### L 500.2500, L100.0100 ####[facility] [address] [place], [address] Chloride [Moles/Vol] 102 mmol/L Normal 98-108 [facility] Comment on above: Performed By: #### L 500.2500, L100.0100 ####[facility] [address] [place], [address] CO2 [Moles/Vol] 24.2 mmol/L Normal 21.0-32.0 [facility] Comment on above: Performed By: #### L 500.2500, L100.0100 ####[facility] [address] [place], [address] Creatinine [Mass/Vol] 1.07 mg/dL Normal 0.70-1.20 [facility] Comment on above: Performed By: #### L 500.2500, L100.0100 ####[facility] [address] [place], [address] ECRCL 95.16 ml/min Normal 50-250 [facility] Comment on above: Performed By: #### L 500.2500, L100.0100 ####[facility] [address] [place], [address] GAP 13 Normal 5-15 [facility] Comment on above: Performed By: #### L 500.2500, L100.0100 ####[facility] [address] [place], [address] GFR/1.73 sq M.predicted among non-blacks MDRD (S/P/Bld) [Vol rate/Area] 71 mL/min/{1.73_m2} Normal >60 [facility] Comment on above: Result Comment: mL/m in/1.73m2 CKD-EPI Creatinine Equation (2020) Performed By: #### L 500.2500, L100.0100 ####[facility] [address] [place], [address] Glucose [Mass/Vol] 217 mg/dL High 70-99 [facility] Comment on above: Performed By: #### L 500.2500, L100.0100 ####[facility] [address], [address] Potassium [Moles/Vol] 4.1 mmol/L Normal 3.3-5.1 [facility] Comment on above: Performed By: #### L 500.2500, L100.0100 ####[facility] [address] [place], [address] Sodium [Moles/Vol] 139 mmol/L Normal 133-145 [facility] Comment on above: Performed By: #### L 500.2500, L100.0100 ####[facility] [address], [address] Urea nitrogen [Mass/Vol] 16 mg/dL Normal 4-19 [facility] Comment on above: Performed By: #### L 500.2500, L100.0100 ####[facility] [address], [address] Bedside Glucoseon 11-27-2024 FINGERSTICK GLU 175 mg/dL High 74-106 [facility] Comment on above: Result Comment: BULL GEMENT OF PATIENT CARE PER NURSING PROTOCOL Performed By: #### L 501.080 ####[facility] [address], [address] FINGERSTICK GLU 147 mg/dL High 74-106 [facility] Comment on above: Result Comment: BULL GEMENT OF PATIENT CARE PER NURSING PROTOCOL Performed By: #### L 501.080 ####[facility] [address], [address] FINGERSTICK GLU 197 mg/dL High 74-106 [facility] Comment on above: Result Comment: BULL GEMENT OF PATIENT CARE PER NURSING PROTOCOL Performed By: #### L 501.080 ####[facility] [address] [place], [address] FINGERSTICK GLU 185 mg/dL High 74-106 [facility] Comment on above: Result Comment: BULL [place]AY[place] OF PATIENT CARE PER NURSING PROTOCOL Performed By: #### L 501.080 ####[facility] [address] [place], [address] Bilirubin directOrdered By: Gale Lr on 11-27-2024 Bilirubin.direct [Mass/Vol] 0.14 mg/dL 0.00-0.30 [facility] Bilirubin, totalOrdered By: Gale Lr on 11-27-2024 Bilirubin [Mass/Vol] 0.35 mg/dL 0.00-1.30 [facility] CBC W/Diff, Automatedon 11-09 Absolute Lymph 2.31 X10 3/uL Normal 0.83-4.51 [facility] Comment on above: Performed By: #### L 500.2500, L100.0100 ####[facility] [address] [place], [address] Absolute Neut 9.7 X10 3/uL High 2.0-7.7 [facility] Comment on above: Performed By: #### L 500.2500, L100.0100 ####[facility] [address] [place], [address] Basophils/100 WBC (Bld) 0.2 % Normal 0-[address] [facility] Comment on above: Performed By: #### L 500.2500, L100.0100 ####[facility] [address] [place], [address] Eosinophils/100 WBC (Bld) 0.0 % Normal 0-5 [facility] Comment on above: Performed By: #### L 500.2500, L100.0100 ####[facility] [address] [place], [address] Erythrocyte distribution width (RBC) [Ratio] 13.8 % Normal 11.6-14.6 [facility] Comment on above: Performed By: #### L 500.2500, L100.0100 ####[facility] [address] [place], [address] Hematocrit (Bld) [Volume fraction] 34.7 % Low 37-47 [facility] Comment on above: Performed By: #### L 500.2500, L100.0100 ####[facility] [address] [place], [address] Hemoglobin (Bld) [Mass/Vol] 11.3 g/dL Low 12.0-15.0 [facility] Comment on above: Performed By: #### L 500.2500, L100.0100 ####[facility] [address] [place], [address] IG% 0.600 Normal 0.0-0.9 [facility] Comment on above: Result Comment: IG% - Immature Granulocytes (promyelocytes, myelocytes andmetamyelocytes) > 1% indicates that a LEFT SHIFT is Present. Performed By: #### L 500.2500, L100.0100 ####[facility] [address] [place], [address] Lymphocytes/100 WBC (Bld) 18.1 % Low 19-41 [facility] Comment on above: Performed By: #### L 500.2500, L100.0100 ####[facility] [address] [place], [address] MCH (RBC) [Entitic mass] 27.0 pg Normal 27.0-32.0 [facility] Comment on above: Performed By: #### L 500.2500, L100.0100 ####[facility] [address] [place], [address] MCHC (RBC) [Mass/Vol] 32.6 g/dL Normal 32-36 [facility] Comment on above: Performed By: #### L 500.2500, L100.0100 ####[facility] [address] [place], [address] MCV (RBC) [Entitic vol] 83.0 fL Normal 81-[address] [facility] Comment on above: Performed By: #### L 500.2500, L100.0100 ####[facility] [address] [place], [address] Monocytes/100 WBC (Bld) 5.2 % Normal 0-[address] [facility] Comment on above: Performed By: #### L 500.2500, L100.0100 ####[facility] [address] [place], [address] Neutrophils/100 WBC (Bld) 75.9 % High 47-70 [facility] Comment on above: Performed By: #### L 500.2500, L100.0100 ####[facility] [address] [place], [address] Nucleated RBC (Bld) [#/Vol] 0 10*3/uL Normal 0-5 [facility] Comment on above: Performed By: #### L 500.2500, L100.0100 ####[facility] [address] [place], [address] Platelet mean volume (Bld) [Entitic vol] 9.6 fL Normal 6.2-12.0 [facility] Comment on above: Performed By: #### L 500.2500, L100.0100 ####[facility] [address] [place], [address] Platelets (Bld) [#/Vol] 354 10*3/uL Normal 150-450 [facility] Comment on above: Performed By: #### L 500.2500, L100.0100 ####[facility] [address] [place], [address] RBC (Bld) [#/Vol] 4.18 10*6/uL Low 4.2-5.4 [facility] Comment on above: Performed By: #### L 500.2500, L100.0100 ####[facility] [address] [place], [address] RDW SD 42.2 fl Normal 35.1-43.9 [facility] Comment on above: Performed By: #### L 500.2500, L100.0100 ####[facility] [address] [place], [address] WBC (Bld) [#/Vol] 12.8 10*3/uL High 4.4-11.0 [facility] Comment on above: Performed By: #### L 500.2500, L100.0100 ####[facility] [address] [place], [address] Laboratory - Chemistry and C hemistry - challengeOrdered By: Gale Lr on 11-27-2024 AST [Catalytic activity/Vol] 21 U/L <32 [facility] Liver Profileon 11-27-2024 Albumin [Mass/Vol] 3.5 g/dL Normal 3.5-5.0 [facility] Comment on above: Performed By: #### L 500.3400 ####[facility] [address] [place], [address] ALK PHOS 88 U/L Normal 35-104 [facility] Comment on above: Performed By: #### L 500.3400 ####[facility] [address] [place], [address] ALT [Catalytic activity/Vol] 12 U/L Normal <=34 [facility] Comment on above: Performed By: #### L 500.3400 ####[facility] [address] [place], [address] AST [Catalytic activity/Vol] 21 U/L Normal <=31 [facility] Comment on above: Performed By: #### L 500.3400 ####[facility] [address] [place], [address] Bilirubin [Mass/Vol] 0.35 mg/dL Normal 0.00-1.30 [facility] Comment on above: Performed By: #### L 500.3400 ####[facility] [address] [place], [address] Bilirubin.direct [Mass/Vol] 0.14 mg/dL Normal 0.00-0.30 [facility] Comment on above: Performed By: #### L 500.3400 ####[facility] [address] [place], [address] Globulin (S) [Mass/Vol] 3.6 g/dL Normal 2.2-4.2 [facility] Comment on above: Performed By: #### L 500.3400 ####[facility] [address] [place], [address] T PROT 7.1 g/dL Normal 5.9-8.4 [facility] Comment on above: Performed By: #### L 500.3400 ####[facility] [address] [place], [address] No Panel InformationOrdered By: Gale Lr on 11-27-2024 21 U/L <32 [facility] Serum globulin measurementOr dered By: Gale Lr on 11-27-2024 Globulin (S) [Mass/Vol] 3.6 g/dL 2.2-4.[address] [facility] Serum or plasma alanine jordan otransferase (ALT) measurementOrdered By: Gale Lr on 11-27-2024 ALT [Catalytic activity/Vol] 12 U/L <35 [facility] Serum or plasma albumin hussein urement (mass/volume)Ordered By: Gale Lr on 11-27-2024 Albumin [Mass/Vol] 3.5 g/dL 3.5-5.0 [facility] Serum or plasma alkaline bradley sphatase measurementOrdered By: Gale Lr on 11-27-2024 ALP [Catalytic activity/Vol] 88 U/L 35-104 [facility] Total proteinOrdered By: Sugar Lr on 11-27-2024 Protein [Mass/Vol] 7.1 g/dL 5.9-8.4 [facility] Abdomen Single Viewon 2024 Abdomen Single View Normal [facility] Basic Metabolic Profile (BMP )on 11-26-2024 BUN/CRE 15.0 RATIO Normal 10-20 [facility] Comment on above: Performed By: #### L 500.2500, L100.0100 ####[facility] [address] [place], [address] Calcium [Mass/Vol] 7.8 mg/dL Normal 7.6-11.0 [facility] Comment on above: Performed By: #### L 500.2500, L100.0100 ####[facility] [address] [place], [address] Chloride [Moles/Vol] 104 mmol/L Normal 98-108 [facility] Comment on above: Performed By: #### L 500.2500, L100.0100 ####[facility] [address] [place], [address] CO2 [Moles/Vol] 22.6 mmol/L Normal 21.0-32.0 [facility] Comment on above: Performed By: #### L 500.2500, L100.0100 ####[facility] [address] [place], [address] Creatinine [Mass/Vol] 1.16 mg/dL Normal 0.70-1.20 [facility] Comment on above: Performed By: #### L 500.2500, L100.0100 ####[facility] [address] [place], [address] ECRCL 87.78 ml/min Normal 50-250 [facility] Comment on above: Performed By: #### L 500.2500, L100.0100 ####[facility] [address], [address] GAP 11 Normal 5-15 [facility] Comment on above: Performed By: #### L 500.2500, L100.0100 ####[facility] [address], [address] GFR/1.73 sq M.predicted among non-blacks MDRD (S/P/Bld) [Vol rate/Area] 64 mL/min/{1.73_m2} Normal >60 [facility] Comment on above: Result Comment: mL/m in/1.73m2 CKD-EPI Creatinine Equation (2020) Performed By: #### L 500.2500, L100.0100 ####[facility] [address], [address] Glucose [Mass/Vol] 148 mg/dL High 70-99 [facility] Comment on above: Performed By: #### L 500.2500, L100.0100 ####[facility] [address], [address] Potassium [Moles/Vol] 4.0 mmol/L Normal 3.3-5.1 [facility] Comment on above: Performed By: #### L 500.2500, L100.0100 ####[facility] [address] [place], [address] Sodium [Moles/Vol] 137 mmol/L Normal 133-145 [facility] Comment on above: Performed By: #### L 500.2500, L100.0100 ####[facility] [address], [address] Urea nitrogen [Mass/Vol] 17 mg/dL Normal 4-19 [facility] Comment on above: Performed By: #### L 500.2500, L100.0100 ####[facility] [address] [place], [address] Bedside Glucoseon 11-26-2024 FINGERSTICK GLU 185 mg/dL High [address] [place] [address] Comment on above: Result Comment: BULL GEMENT OF PATIENT CARE PER NURSING PROTOCOL Performed By: #### L 501.080 ####[facility] [address], [address] FINGERSTICK GLU 218 mg/dL High [address] [place] [address] Comment on above: Result Comment: BULL GEMENT OF PATIENT CARE PER NURSING PROTOCOL Performed By: #### L 501.080 ####[facility] [address], [address] FINGERSTICK GLU 202 mg/dL High [address] [place] [address] Comment on above: Result Comment: BULL GEMENT OF PATIENT CARE PER NURSING PROTOCOL Performed By: #### L 501.080 ####[facility] [address] [place], [address] FINGERSTICK GLU 160 mg/dL High [address] [place] [address] Comment on above: Result Comment: BULL GEMENT OF PATIENT CARE PER NURSING PROTOCOL Performed By: #### L 501.080 ####[facility] [address], [address] FINGERSTICK GLU 166 mg/dL High [address] [place] [address] Comment on above: Result Comment: BULL GEMENT OF PATIENT CARE PER NURSING PROTOCOL Performed By: #### L 501.080 ####[facility] [address] [place], [address] CBC W/Diff, Automatedon - Absolute Lymph 3.42 X10 3/uL Normal 0.83-4.51 [facility] Comment on above: Performed By: #### L 500.2500, L100.0100 ####[facility] [address], [address] Absolute Neut 12.9 X10 3/uL High 2.0-7.7 [facility] Comment on above: Performed By: #### L 500.2500, L100.0100 ####[facility] [address], [address] Basophils/100 WBC (Bld) 0.2 % Normal 0-[address] [facility] Comment on above: Performed By: #### L 500.2500, L100.0100 ####[facility] [address] [place], [address] Eosinophils/100 WBC (Bld) 0.2 % Normal 0-5 [facility] Comment on above: Performed By: #### L 500.2500, L100.0100 ####[facility] [address] [place], [address] Erythrocyte distribution width (RBC) [Ratio] 13.9 % Normal 11.6-14.6 [facility] Comment on above: Performed By: #### L 500.2500, L100.0100 ####[facility] [address] [place], [address] Hematocrit (Bld) [Volume fraction] 34.2 % Low 37-47 [facility] Comment on above: Performed By: #### L 500.2500, L100.0100 ####[facility] [address] [place], [address] Hemoglobin (Bld) [Mass/Vol] 11.0 g/dL Low 12.0-15.0 [facility] Comment on above: Performed By: #### L 500.2500, L100.0100 ####[facility] [address] [place], [address] IG% 0.600 Normal 0.0-0.9 [facility] Comment on above: Result Comment: IG% - Immature Granulocytes (promyelocytes, myelocytes andmetamyelocytes) > 1% indicates that a LEFT SHIFT is Present. Performed By: #### L 500.2500, L100.0100 ####[facility] [address] [place], [address] Lymphocytes/100 WBC (Bld) 19.4 % Normal 19-41 [facility] Comment on above: Performed By: #### L 500.2500, L100.0100 ####[facility] [address] [place], [address] MCH (RBC) [Entitic mass] 27.0 pg Normal 27.0-32.0 [facility] Comment on above: Performed By: #### L 500.2500, L100.0100 ####[facility] [address] [place], [address] MCHC (RBC) [Mass/Vol] 32.2 g/dL Normal 32-36 [facility] Comment on above: Performed By: #### L 500.2500, L100.0100 ####[facility] [address] [place], [address] MCV (RBC) [Entitic vol] 83.8 fL Normal 81-[address] [facility] Comment on above: Performed By: #### L 500.2500, L100.0100 ####[facility] [address] [place], [address] Monocytes/100 WBC (Bld) 6.2 % Normal 0-[address] [facility] Comment on above: Performed By: #### L 500.2500, L100.0100 ####[facility] [address] [place], [address] Neutrophils/100 WBC (Bld) 73.4 % High 47-70 [facility] Comment on above: Performed By: #### L 500.2500, L100.0100 ####[facility] [address] [place], [address] Nucleated RBC (Bld) [#/Vol] 0 10*3/uL Normal 0-5 [facility] Comment on above: Performed By: #### L 500.2500, L100.0100 ####[facility] [address] [place], [address] Platelet mean volume (Bld) [Entitic vol] 9.8 fL Normal 6.2-12.0 [facility] Comment on above: Performed By: #### L 500.2500, L100.0100 ####[facility] [address] [place], [address] Platelets (Bld) [#/Vol] 308 10*3/uL Normal 150-450 [facility] Comment on above: Performed By: #### L 500.2500, L100.0100 ####[facility] [address] [place], [address] RBC (Bld) [#/Vol] 4.08 10*6/uL Low 4.2-5.4 [facility] Comment on above: Performed By: #### L 500.2500, L100.0100 ####[facility] [address] [place], [address] RDW SD 43.0 fl Normal 35.1-43.9 [facility] Comment on above: Performed By: #### L 500.2500, L100.0100 ####[facility] [address] [place], [address] WBC (Bld) [#/Vol] 17.6 10*3/uL High 4.4-11.0 [facility] Comment on above: Performed By: #### L 500.2500, L100.0100 ####[facility] [address] [place], [address] Abdomen/Pelvis W IV Cont ONL Yon 11-25-2024 Abdomen/Pelvis W IV Cont ONLY Normal [facility] Absolute lymphocyte countOrd ered By: Drew Hinson on 11-25-2024 Lymphocytes Auto (Unsp spec) [#/Vol] 3.09 10*3/uL 0.83-4.51 [facility] Absolute neutrophil countOrd ered By: Drew Hinson on 11-25-2024 Neutrophils (Bld) [#/Vol] 21.5 10*3/uL High 2.0-7.7 [facility] Acute Abdomen Inc Cheston Acute Abdomen Inc Chest Normal [facility] Amorphous sediment detection in urine sediment by light microscopyOrdered By: Drew Hinson on 11-25-2024 Amorphous sediment LM Ql (Urine sed) 2+ URATE [facility] Anion gap in Serum or Plasma Ordered By: Drew Hinson on 11-25-2024 Anion gap [Moles/Vol] 17 mmol/L High 5-15 [facility] Automated lymphocyte count a s percentage of total leukocytesOrdered By: Drew Hinson on 11-25-2024 Lymphocytes/100 WBC Auto (Unsp spec) 11.4 % Low 19-41 [facility] BUN/creatinine ratioOrdered By: Drew Hinson on 11-25-2024 Urea nitrogen/Creatinine [Mass ratio] 15.9 mg/mg 10-20 [facility] Basic Metabolic Profile (BMP )on 11-25-2024 BUN/CRE 15.9 RATIO Normal -20 [facility] Comment on above: Performed By: #### L 700.6800, L100.0100, L500.2500 ####[facility] [address] [place], [address] Calcium [Mass/Vol] 9.6 mg/dL Normal 7.6-11.0 [facility] Comment on above: Performed By: #### L 700.6800, L100.0100, L500.2500 ####[facility] [address] [place], [address] Chloride [Moles/Vol] 97 mmol/L Low 98-108 [facility] Comment on above: Performed By: #### L 700.6800, L100.0100, L500.2500 ####[facility] [address] [place], [address] CO2 [Moles/Vol] 21.3 mmol/L Normal 21.0-32.0 [facility] Comment on above: Performed By: #### L 700.6800, L100.0100, L500.2500 ####[facility] [address] [place], [address] Creatinine [Mass/Vol] 1.20 mg/dL Normal 0.70-1.20 [facility] Comment on above: Performed By: #### L 700.6800, L100.0100, L500.2500 ####[facility] [address] [place], [address] ECRCL 86.69 ml/min Normal 50-250 [facility] Comment on above: Performed By: #### L 700.6800, L100.0100, L500.2500 ####[facility] [address] [place], [address] GAP 17 High 5-15 [facility] Comment on above: Performed By: #### L 700.6800, L100.0100, L500.2500 ####[facility] [address] [place], [address] GFR/1.73 sq M.predicted among non-blacks MDRD (S/P/Bld) [Vol rate/Area] 62 mL/min/{1.73_m2} Normal >60 [facility] Comment on above: Result Comment: mL/m in/1.73m2 CKD-EPI Creatinine Equation (2020) Performed By: #### L 700.6800, L100.0100, L500.2500 ####[facility] [address] [place], [address] Glucose [Mass/Vol] 203 mg/dL High 70-99 [facility] Comment on above: Performed By: #### L 700.6800, L100.0100, L500.2500 ####[facility] [address] [place], [address] Potassium [Moles/Vol] 4.0 mmol/L Normal 3.3-5.1 [facility] Comment on above: Performed By: #### L 700.6800, L100.0100, L500.2500 ####[facility] [address] [place], [address] Sodium [Moles/Vol] 135 mmol/L Normal 133-145 [facility] Comment on above: Performed By: #### L 700.6800, L100.0100, L500.2500 ####[facility] [address] [place], [address] Urea nitrogen [Mass/Vol] 19 mg/dL Normal 4-19 [facility] Comment on above: Performed By: #### L 700.6800, L100.0100, L500.2500 ####[facility] [address] [place], [address] Basophil percentageOrdered B y: Drew Hinson on 11-25-2024 Basophils/100 WBC (Bld) 0.3 % 0-[address] [facility] Bedside Glucoseon 11-25-2024 FINGERSTICK GLU 139 mg/dL High 74-106 [facility] Comment on above: Result Comment: BULL [place] OF PATIENT CARE PER NURSING PROTOCOL Performed By: #### L 501.080 ####[facility] [address] [place], [address] Bilirubin Test strip Ql (U)O rdered By: Drew Hinson on 11-25-2024 Bilirubin Ql (U) 1 mg/dL High Negative [facility] Comment on above: COLOR OF URINE MAY A FFECT DIPSTICK RESULTS. Blood cultureOrdered By: Dwight Hinson on 11-25-2024 Bacteria identified Cx Nom (Bld) No growth in 5 days. [facility] Bacteria identified Cx Nom (Bld) No growth in 5 days. [facility] CBC W/Diff, Automatedon 11-09 PLT EST A Normal ADEQ [facility] Comment on above: Performed By: #### L 700.6800, L100.0100, L500.2500 ####[facility] [address] [place], [address] Carbon dioxide, total [Moles /volume] in Central venous bloodOrdered By: Drew Hinson on 11-25-2024 CO2 [Moles/Vol] 21.3 mmol/L 21.0-32.0 [facility] Chloride assayOrdered By: Katai Hinson on 11-25-2024 Chloride [Moles/Vol] 97 mmol/L Low 98-108 [facility] Consultation - Surgicalon Consultation - Surgical Normal [facility] Emergency Department Summary on 11-25-2024 Emergency Department Summary Normal [facility] Eosinophil percentageOrdered By: Drew Hinson on 11-25-2024 Eosinophils/100 WBC (Bld) 0.1 % 0-5 [facility] Erythrocyte distribution wid th ratioOrdered By: Drew Hinson on 11-25-2024 Erythrocyte distribution width (RBC) [Ratio] 14.2 % 11.6-14.6 [facility] Erythrocyte distribution wid th standard deviationOrdered By: Drew Hinson on 11-25-2024 Erythrocyte distribution width (RBC) [Ratio] 41.1 fl 35.1-43.9 [facility] Glomerular filtration rate ( GFR) estimation/1.73 sq m using serum, plasma, or whole bOrdered By: Drew Hinson on 11-25-2024 GFR/1.73 sq M.predicted among non-blacks MDRD (S/P/Bld) [Vol rate/Area] 62 mL/min/{1.73_m2} >60 [facility] Comment on above: mL/min/1.73m2 CKD-EP I Creatinine Equation (2020) H AND P Exam - Hospitaliston 11-25-2024 H&P Exam - Hospitalist Normal [facility] Hematocrit Auto (Bld) [Volum e fraction]Ordered By: Drew Hinson on 11-25-2024 Hematocrit (Bld) [Volume fraction] 42.3 % 37-47 [facility] Hemoglobin measurementOrdere d By: Drew Hinson on 11-25-2024 Hemoglobin (Bld) [Mass/Vol] 14.1 g/dL 12.0-15.0 [facility] Hyaline casts LM.LPF (Urine sed) [#/Area]Ordered By: Drew Hinson on 11-25-2024 Hyaline casts (Urine sed) [#/Area] 0 /[LPF] 0-5 [facility] Immature granulocytes/100 WB C Auto (Bld)Ordered By: Drew Hinson on 11-25-2024 Immature granulocytes/100 WBC (Bld) 0.700 % 0.0-0.9 [facility] Comment on above: IG% - Immature Granu locytes (promyelocytes, myelocytes and metamyelocytes) > 1% indicates that a LEFT SHIFT is Present. Ketones Test strip Ql (U)Ord ered By: Drew Hinson on 11-25-2024 Ketones Ql (U) 5 mg/dl High Negative [facility] Lactic Acidon 11-25-2024 Lactate [Moles/Vol] 1.5 mmol/L Normal 0.0-2.0 [facility] Comment on above: Order Comment: Y Performed By: #### M 200.1000, L503.6005 ####[facility] [address] [place], [address] Lactic acid measurementOrder ed By: Drew Hinson on 11-25-2024 Lactate [Moles/Vol] 1.5 mmol/L 0.0-2.0 [facility] MCV (mean corpuscular volume ) determinationOrdered By: Drew Hinson on 11-25-2024 MCV (RBC) [Entitic vol] 81.2 fL 81-[address] [facility] Mean corpuscular hemoglobin (MCH) determinationOrdered By: Drew Hinson on 11-25-2024 MCH (RBC) [Entitic mass] 27.1 pg 27.0-32.0 [facility] Mean corpuscular hemoglobin concentration (MCHC) determinationOrdered By: Drew Hinson on 11-25-2024 MCHC (RBC) [Mass/Vol] 33.3 g/dL 32-36 [facility] Mean platelet volume determi nationOrdered By: Drew Hinson on 11-25-2024 Platelet mean volume (Bld) [Entitic vol] 9.4 fL 6.2-12.0 [facility] Microscopic analysis of urin e for red blood cells (RBC)Ordered By: Drew Hinson on 11-25-2024 Microscopic analysis of urine for red blood cells (RBC) 0-5 SEEN /hpf 0-5 [facility] Monocyte percentageOrdered B y: Drew Hinson on 11-25-2024 Monocytes/100 WBC (Bld) 8.0 % 0-[address] [facility] Mucus LM Ql (Urine sed)Order ed By: Drew Hinson on 11-25-2024 Mucus Ql (Urine sed) 0 SEEN /hpf [facility] Neutrophil percentageOrdered By: Drew Hinson on 11-25-2024 Neutrophils/100 WBC (Bld) 79.5 % High 47-70 [facility] Nitrite Test strip Ql (U)Ord ered By: Drew Hinson on 11-25-2024 Nitrite Ql (U) Negative Negative [facility] Nucleated red blood cell per centageOrdered By: Drew Hinson on 11-25-2024 Nucleated RBC/100 WBC (Bld) [Ratio] 0 % 0-5 [facility] Platelet countOrdered By: Katia Hinson on 11-25-2024 Platelets (Bld) [#/Vol] 400 10*3/uL 150-450 [facility] Platelet estimateOrdered By: Drew Hinson on 11-25-2024 Platelets LM Ql (Bld) A ADEQ [facility] Potassium measurement (mass/ volume)Ordered By: Drew Hinson on 11-25-2024 Potassium (Unsp spec) [Mass/Vol] 4.0 mmol/L 3.3-5.1 [facility] ,Serum,hCG Quali.on 11-25-2024 HCG, SERUM QUAL Negative Normal [facility] Comment on above: Performed By: #### L 700.5790, L100.0100, L500.2500 ####[facility] [address] [place], [place], [id number] Protein Test strip Ql (U)Ord ered By: Drew Hinson on 11-25-2024 Protein Ql (U) 30 mg/dl High Negative [facility] RBC Auto (Bld) [#/Vol]Ordere d By: Drew Hinson on 11-25-2024 RBC (Bld) [#/Vol] 5.21 10*6/uL 4.2-5.4 [facility] Serum beta-hCG test, qualita tiveOrdered By: Drew Hinson on 11-25-2024 Beta HCG ( test) Ql Negative [facility] Serum creatinine measurement (mass/volume)Ordered By: Drew Hinson on 11-25-2024 Creatinine [Mass/Vol] 1.20 mg/dL 0.70-1.20 [facility] Serum glucose measurement (m ass/volume)Ordered By: Drew Hinson on 11-25-2024 Glucose [Mass/Vol] 203 mg/dL High 70-99 [facility] Serum or plasma calcium hussein urement (mass/volume)Ordered By: Drew Hinson on 11-25-2024 Calcium [Mass/Vol] 9.6 mg/dL 7.6-11.0 [facility] Serum or plasma urea nitroge n measurement (mass/volume)Ordered By: Drew Hinson on 11-25-2024 Urea nitrogen [Mass/Vol] 19 mg/dL 4-19 [facility] Sodium levelOrdered By: Drew Hinson on 11-25-2024 Sodium [Moles/Vol] 135 mmol/L 133-145 [facility] Squamous epithelial cells de tection in urine sediment by light microscopyOrdered By: Drew Hinson on 11-25-2024 Epithelial cells.squamous LM Ql (Urine sed) 0-5 SEEN /hpf 5-10 [facility] Urinalysis, Completeon 11-25 CAST,HYALINE 0-5 SEEN Normal 0-5 [facility] Comment on above: Order Comment: CLEAN CATCH Performed By: #### L 400.0001 ####[facility] [address] [place], [address] AMORPHOUS 2+ URATE Normal [facility] Comment on above: Order Comment: CLEAN CATCH Performed By: #### L 400.0001 ####[facility] [address] [place], [address] EPI,SQUAMOUS 0-5 SEEN Normal 5-10 [facility] Comment on above: Order Comment: CLEAN CATCH Performed By: #### L 400.0001 ####[facility] [address] [place], [address] RBC 0-5 SEEN Normal 0-5 [facility] Comment on above: Order Comment: CLEAN CATCH Performed By: #### L 400.0001 ####[facility] [address] [place], [address] WBC 0-5 SEEN Normal 0-5 [facility] Comment on above: Order Comment: CLEAN CATCH Performed By: #### L 400.0001 ####[facility] [address] [place], [address] BACTERIA 0 SEEN Normal None Seen [facility] Comment on above: Order Comment: CLEAN CATCH Performed By: #### L 400.0001 ####[facility] [address] [place], [address] Mucus Ql (Urine sed) 0 SEEN Normal [facility] Comment on above: Order Comment: CLEAN CATCH Performed By: #### L 400.0001 ####[facility] [address] [place], [address] Urine clarityOrdered By: Dwight Hinson on 11-25-2024 Clarity (U) Cloudy Clear [facility] Urine color determinationOrd ered By: Drew Hinson on 11-25-2024 Color (U) Yellow Yellow [facility] Urine glucose detectionOrder ed By: Drew Hinson on 11-25-2024 Glucose Ql (U) Normal mg/dl Normal [facility] Urine leukocyte esterase det ection by dipstickOrdered By: Drew Hinson on 11-25-2024 Leukocyte esterase Test strip Ql (U) Negative Negative [facility] Urine pHOrdered By: Drew castellanos on 11-25-2024 pH (U) 6.0 [pH] 5.0 - 8.0 [facility] Urine sediment bacteria coun t by microscopy (number/high power field)Ordered By: Drew Hinson on 11-25-2024 Bacteria LM.HPF (Urine sed) [#/Area] 0 /[HPF] None Seen [facility] Urine specific gravity measu rementOrdered By: Drew Hinson on 11-25-2024 Specific gravity (U) [Rel density] 1.025 1.002-1.030 [facility] Urine urobilinogen measureme ntOrdered By: Drew Hinson on 11-25-2024 Urobilinogen Ql (U) 1 mg/dl High Normal [facility] White blood cell (WBC) count Ordered By: Drew Hinson on 11-25-2024 WBC (Bld) [#/Vol] 27.0 10*3/uL High 4.4-11.0 [facility] White blood cell countOrdere d By: Drew Hinson on 11-25-2024 White blood cell count 0-5 SEEN /hpf 0-5 [facility] Arterial study reportOrdered By: Tony Dwyer on 10-25-2024 Noninvasive arteriosclerosis study report [facility] [address] [place] [address] Lower Ext Art Exam w/o Exercis 10/25/24 0847 MR#: [id number] Acct: [id number] Name: GHISLAINE GIVENS Rep #:[id number] : 1990 34 From: Tony Dwyer MD [...] 10/25/242211 Date _ Tony Dwyer MD CC: DPPrisca Forrest; [facility] TRADE SPECIALIST-C Amy Solorzano ~ Date Dictated: 10/25/24 0847 Date Transcribed: 10/25/242211 Manager Rfid: Signed [facility] Other Phone: Lower Ext Art Exam w/o Exerc rudy 10-25-2024 Lower Ext Art Exam w/o Exercis Normal [facility] Venous Duplex US - Tayo Extre mon 10-25-2024 Venous Duplex US - Tayo Extrem Normal [facility] Venous duplex ultrasound rep ortOrdered By: Tony Dwyer on 10-25-2024 US Vein [facility] [address] [place] [address] Venous Duplex US - Tayo Extrem 10/25/24 0806 MR#: [id number] Acct: [id number] Name: GHISLAINE GIVENS Rep #:[id number] : 1990 34 From: Tony Dwyer MD [...] competent and measures 0.21 x 0.23 INCOMPETENT body technician noted 8 cm above medial cm. maleolus. [...] right proximal calf is incompetent. An incompetent body technician vein is noted in the right calf, located 8 centimeters proximal to the right medial malleolus. Ordering Physician: Abdirizak Forrest Referring Physician: Amy Solorzano Performed By: Saima De La Torre Ted 10/25/242200 Date _ Tony Dwyer MD CC: DPPrisca Forrest; [facility] TRADE SPECIALIST-C Amy Solorzano ~ Date Dictated: 10/25/24805 Date Transcribed: 10/25/242200 Manager Rfid: Signed [facility] Other Phone: Absolute lymphocyte countOrd ered By: [facility] Amy Rashad on 10-17-2024 Lymphocytes Auto (Unsp spec) [#/Vol] 3.16 10*3/uL 0.83-4.51 [facility] Absolute neutrophil countOrd ered By: [facility] Amy Rashad on 10-17-2024 Neutrophils (Bld) [#/Vol] 6.6 10*3/uL 2.0-7.7 [facility] Albumin DL <= 20 mg/L (U) [M ass/Vol]Ordered By: [facility] Amy Rashad on 10-17-2024 Urine Random Microalbumin < 12.0 mg/L NO RANGE EST. [facility] Anion gap in Serum or Plasma Ordered By: [facility] Amy Rashad on 10-17-2024 Anion gap [Moles/Vol] 14 mmol/L 5-15 [facility] Automated lymphocyte count a s percentage of total leukocytesOrdered By: [facility] Rash[facility] on 10-17-2024 Lymphocytes/100 WBC Auto (Unsp spec) 29.7 % 19-41 [facility] BUN/creatinine ratioOrdered By: [facility] Rashad on 10-17-2024 Urea nitrogen/Creatinine [Mass ratio] 14.4 mg/mg 10-20 [facility] Basophil percentageOrdered B y: [facility] Amy Rashad on 10-17-2024 Basophils/100 WBC (Bld) 0.4 % 0-[address] [facility] Bilirubin, totalOrdered By: [facility] on 10-17-2024 Bilirubin [Mass/Vol] 0.21 mg/dL 0.00-1.30 [facility] CBC W/Diff, Automatedon Absolute Lymph 3.16 X10 3/uL Normal 0.83-4.51 [facility] Comment on above: Performed By: #### L 506.1001, L501.9520, L500.4100, L500.4050, L100.0100, L502.0500 ####[facility] [address] [place], [place], [id number] Absolute Neut 6.6 X10 3/uL Normal 2.0-7.7 [facility] Comment on above: Performed By: #### L 506.1001, L501.9520, L500.4100, L500.4050, L100.0100, L502.0500 ####[facility] [address] [place], [address] Basophils/100 WBC (Bld) 0.4 % Normal 0-[address] [facility] Comment on above: Performed By: #### L 506.1001, L501.9520, L500.4100, L500.4050, L100.0100, L502.0500 ####[facility] [address] [place], [address] Eosinophils/100 WBC (Bld) 0.7 % Normal 0-5 [facility] Comment on above: Performed By: #### L 506.1001, L501.9520, L500.4100, L500.4050, L100.0100, L502.0500 ####[facility] [address] [place], [address] Erythrocyte distribution width (RBC) [Ratio] 14.1 % Normal 11.6-14.6 [facility] Comment on above: Performed By: #### L 506.1001, L501.9520, L500.4100, L500.4050, L100.0100, L502.0500 ####[facility] [address] [place], [address] Hematocrit (Bld) [Volume fraction] 39.5 % Normal 37-47 [facility] Comment on above: Performed By: #### L 506.1001, L501.9520, L500.4100, L500.4050, L100.0100, L502.0500 ####[facility] [address] [place], [address] Hemoglobin (Bld) [Mass/Vol] 12.8 g/dL Normal 12.0-15.0 [facility] Comment on above: Performed By: #### L 506.1001, L501.9520, L500.4100, L500.4050, L100.0100, L502.0500 ####[facility] [address] [place], [address] IG% 1.000 High 0.0-0.9 [facility] Comment on above: Result Comment: IG% - Immature Granulocytes (promyelocytes, myelocytes andmetamyelocytes) > 1% indicates that a LEFT SHIFT is Present. Performed By: #### L 506.1001, L501.9520, L500.4100, L500.4050, L100.0100, L502.0500 ####[facility] [address] [place], [address] Lymphocytes/100 WBC (Bld) 29.7 % Normal 19-41 [facility] Comment on above: Performed By: #### L 506.1001, L501.9520, L500.4100, L500.4050, L100.0100, L502.0500 ####[facility] [address] [place], [address] MCH (RBC) [Entitic mass] 26.6 pg Low 27.0-32.0 [facility] Comment on above: Performed By: #### L 506.1001, L501.9520, L500.4100, L500.4050, L100.0100, L502.0500 ####[facility] [address] [place], [address] MCHC (RBC) [Mass/Vol] 32.4 g/dL Normal 32-36 [facility] Comment on above: Performed By: #### L 506.1001, L501.9520, L500.4100, L500.4050, L100.0100, L502.0500 ####[facility] [address] [place], [address] MCV (RBC) [Entitic vol] 82.1 fL Normal 81-[address] [facility] Comment on above: Performed By: #### L 506.1001, L501.9520, L500.4100, L500.4050, L100.0100, L502.0500 ####[facility] [address] [place], [address] Monocytes/100 WBC (Bld) 6.0 % Normal 0-[address] [facility] Comment on above: Performed By: #### L 506.1001, L501.9520, L500.4100, L500.4050, L100.0100, L502.0500 ####[facility] [address] [place], [address] Neutrophils/100 WBC (Bld) 62.2 % Normal 47-70 [facility] Comment on above: Performed By: #### L 506.1001, L501.9520, L500.4100, L500.4050, L100.0100, L502.0500 ####[facility] [address] [place], [address] Nucleated RBC (Bld) [#/Vol] 0 10*3/uL Normal 0-5 [facility] Comment on above: Performed By: #### L 506.1001, L501.9520, L500.4100, L500.4050, L100.0100, L502.0500 ####[facility] [address] [place], [address] Platelet mean volume (Bld) [Entitic vol] 9.7 fL Normal 6.2-12.0 [facility] Comment on above: Performed By: #### L 506.1001, L501.9520, L500.4100, L500.4050, L100.0100, L502.0500 ####[facility] [address] [place], [address] Platelets (Bld) [#/Vol] 332 10*3/uL Normal 150-450 [facility] Comment on above: Performed By: #### L 506.1001, L501.9520, L500.4100, L500.4050, L100.0100, L502.0500 ####[facility] [address] [place], [address] RBC (Bld) [#/Vol] 4.81 10*6/uL Normal 4.2-5.4 [facility] Comment on above: Performed By: #### L 506.1001, L501.9520, L500.4100, L500.4050, L100.0100, L502.0500 ####[facility] [address] [place], [address] RDW SD 41.9 fl Normal 35.1-43.9 [facility] Comment on above: Performed By: #### L 506.1001, L501.9520, L500.4100, L500.4050, L100.0100, L502.0500 ####[facility] [address] [place], [address] WBC (Bld) [#/Vol] 10.6 10*3/uL Normal 4.4-11.0 [facility] Comment on above: Performed By: #### L 506.1001, L501.9520, L500.4100, L500.4050, L100.0100, L502.0500 ####[facility] [address] [place], [place], [phone] Calculated very low density lipoprotein (VLDL) cholesterol measurementOrdered By: BROOKLYN Solorzano on 10-17-2024 Calculated very low density lipoprotein (VLDL) cholesterol measurement 57 mg/dL High 5-40 [facility] VLDL Cholesterol 57 mg/dL High 5-40 [facility] Carbon dioxide, total [Moles /volume] in Central venous bloodOrdered By: BROOKLYN Solorzano on 10-17-2024 CO2 [Moles/Vol] 21.8 mmol/L 21.0-32.0 [facility] Chloride assayOrdered By: JERRY Solorzano on 10-17-2024 Chloride [Moles/Vol] 99 mmol/L 98-108 [facility] Comprehensive Metabolic Prof ilon 10-17-2024 Albumin [Mass/Vol] 3.7 g/dL Normal 3.5-5.0 [facility] Comment on above: Performed By: #### L 506.1001, L501.9520, L500.4100, L500.4050, L100.0100, L502.0500 ####[facility] [address] [place], [address] Albumin/Globulin [Mass ratio] 0.9 {ratio} Normal 0.9-2.4 [facility] Comment on above: Performed By: #### L 506.1001, L501.9520, L500.4100, L500.4050, L100.0100, L502.0500 ####[facility] [address] [place], [address] ALK PHOS 93 U/L Normal 35-104 [facility] Comment on above: Performed By: #### L 506.1001, L501.9520, L500.4100, L500.4050, L100.0100, L502.0500 ####[facility] [address] [place], [address] ALT [Catalytic activity/Vol] 12 U/L Normal <=34 [facility] Comment on above: Performed By: #### L 506.1001, L501.9520, L500.4100, L500.4050, L100.0100, L502.0500 ####[facility] [address] [place], [address] AST [Catalytic activity/Vol] 18 U/L Normal <=31 [facility] Comment on above: Performed By: #### L 506.1001, L501.9520, L500.4100, L500.4050, L100.0100, L502.0500 ####[facility] [address] [place], [address] Bilirubin [Mass/Vol] 0.21 mg/dL Normal 0.00-1.30 [facility] Comment on above: Performed By: #### L 506.1001, L501.9520, L500.4100, L500.4050, L100.0100, L502.0500 ####[facility] [address] [place], [address] BUN/CRE 14.4 RATIO Normal 10-20 [facility] Comment on above: Performed By: #### L 506.1001, L501.9520, L500.4100, L500.4050, L100.0100, L502.0500 ####[facility] [address] [place], [address] Calcium [Mass/Vol] 9.2 mg/dL Normal 7.6-11.0 [facility] Comment on above: Performed By: #### L 506.1001, L501.9520, L500.4100, L500.4050, L100.0100, L502.0500 ####[facility] [address] [place], [address] Chloride [Moles/Vol] 99 mmol/L Normal 98-108 [facility] Comment on above: Performed By: #### L 506.1001, L501.9520, L500.4100, L500.4050, L100.0100, L502.0500 ####[facility] [address] [place], [address] CO2 [Moles/Vol] 21.8 mmol/L Normal 21.0-32.0 [facility] Comment on above: Performed By: #### L 506.1001, L501.9520, L500.4100, L500.4050, L100.0100, L502.0500 ####[facility] [address] [place], [address] Creatinine [Mass/Vol] 0.84 mg/dL Normal 0.70-1.20 [facility] Comment on above: Performed By: #### L 506.1001, L501.9520, L500.4100, L500.4050, L100.0100, L502.0500 ####[facility] [address] [place], [address] GAP 14 Normal 5-15 [facility] Comment on above: Performed By: #### L 506.1001, L501.9520, L500.4100, L500.4050, L100.0100, L502.0500 ####[facility] [address] [place], [address] GFR/1.73 sq M.predicted among non-blacks MDRD (S/P/Bld) [Vol rate/Area] 95 mL/min/{1.73_m2} Normal >60 [facility] Comment on above: Result Comment: mL/m in/1.73m2 CKD-EPI Creatinine Equation (2020) Performed By: #### L 506.1001, L501.9520, L500.4100, L500.4050, L100.0100, L502.0500 ####[facility] [address] [place], [address] Globulin (S) [Mass/Vol] 3.9 g/dL Normal 2.2-4.2 [facility] Comment on above: Performed By: #### L 506.1001, L501.9520, L500.4100, L500.4050, L100.0100, L502.0500 ####[facility] [address] [place], [address] Glucose [Mass/Vol] 233 mg/dL High 70-99 [facility] Comment on above: Performed By: #### L 506.1001, L501.9520, L500.4100, L500.4050, L100.0100, L502.0500 ####[facility] [address] [place], [address] Potassium [Moles/Vol] 4.6 mmol/L Normal 3.3-5.1 [facility] Comment on above: Performed By: #### L 506.1001, L501.9520, L500.4100, L500.4050, L100.0100, L502.0500 ####[facility] [address] [place], [address] Sodium [Moles/Vol] 135 mmol/L Normal 133-145 [facility] Comment on above: Performed By: #### L 506.1001, L501.9520, L500.4100, L500.4050, L100.0100, L502.0500 ####[facility] [address] [place], [address] T PROT 7.5 g/dL Normal 5.9-8.4 [facility] Comment on above: Performed By: #### L 506.1001, L501.9520, L500.4100, L500.4050, L100.0100, L502.0500 ####[facility] [address] [place], [address] Urea nitrogen [Mass/Vol] 12 mg/dL Normal 4-19 [facility] Comment on above: Performed By: #### L 506.1001, L501.9520, L500.4100, L500.4050, L100.0100, L502.0500 ####[facility] [address] [place], [address] Eosinophil percentageOrdered By: [facility] Amy Solorzano on 10-17-2024 Eosinophils/100 WBC (Bld) 0.7 % 0-5 [facility] Erythrocyte distribution wid th (RBC) [Ratio]Ordered By: [facility] Amy Solorzano on 10-17-2024 Erythrocyte distribution width (RBC) [Entitic vol] 41.9 fL 35.1-43.9 [facility] Erythrocyte distribution wid th ratioOrdered By: [facility] Amy Solorzano on 10-17-2024 Erythrocyte distribution width (RBC) [Ratio] 14.1 % 11.6-14.6 [facility] Erythrocyte distribution wid th standard deviationOrdered By: [facility] Amy Solorzano on 10-17-2024 Erythrocyte distribution width (RBC) [Ratio] 41.9 fl 35.1-43.9 [facility] GFR/1.73 sq M.predicted taryn g non-blacks MDRD (S/P/Bld) [Vol rate/Area]Ordered By: [facility] Amy Solorzano on 10-17-2024 Estimated GFR (MDRD) Non-Af Amer 95 >60 [facility] Comment on above: mL/min/1.73m2 CKD-EP I Creatinine Equation (2020) Glomerular filtration rate ( GFR) estimation/1.73 sq m using serum, plasma, or whole bOrdered By: [facility] Amy Solorzano on 10-17-2024 GFR/1.73 sq M.predicted among non-blacks MDRD (S/P/Bld) [Vol rate/Area] 95 mL/min/{1.73_m2} >60 [facility] Comment on above: mL/min/1.73m2 CKD-EP I Creatinine Equation (2020) Hematocrit Auto (Bld) [Volum e fraction]Ordered By: [facility] Amy Solorzano on 10-17-2024 Hematocrit (Bld) [Volume fraction] 39.5 % 37-47 [facility] Hemoglobin measurementOrdere d By: [facility] Amy Solorzano on 10-17-2024 Hemoglobin (Bld) [Mass/Vol] 12.8 g/dL 12.0-15.0 [facility] Immature granulocytes/100 WB C Auto (Bld)Ordered By: [facility] Amy Solorzano on 10-17-2024 Immature granulocytes/100 WBC (Bld) 1.000 % High 0.0-0.9 [facility] Comment on above: IG% - Immature Granu locytes (promyelocytes, myelocytes and metamyelocytes) > 1% indicates that a LEFT SHIFT is Present. LDL calc ser/plasOrdered By: [facility] Amy Solorzano on 10-17-2024 Cholesterol in LDL [Mass/Vol] 70 mg/dL [facility] Comment on above: Xxmwujrahx=709-892 m g/dL & Higher Wfut=342 mg/dL or greater LDL Cholesterol, Calculated 70 mg/dL [facility] Comment on above: Yzouxmonda=398-531 m g/dL & Higher Nkaq=325 mg/dL or greater Laboratory - Chemistry and C hemistry - challengeOrdered By: [facility] Amy Solorzano on 10-17-2024 AST [Catalytic activity/Vol] 18 U/L <32 [facility] Lipid Profileon 10-17-2024 CHOL:HDL 4.44 Normal [facility] Comment on above: Performed By: #### L 506.1001, L501.9520, L500.4100, L500.4050, L100.0100, L502.0500 ####[facility] [address] [place], [place], [id number]) Cholesterol [Mass/Vol] 164 mg/dL Normal <=200 [facility] Comment on above: Result Comment: Chol esterol level, Desirable <200 mg/dLBorderline high cholesterol 200-239 mg/dLHigh cholesterol >=240 mg/dLRecommendations of the NCEP Adult Treatment Panel for thefollowing risk-cutoff thresholds for the [place] [facility]. Performed By: #### L 506.1001, L501.9520, L500.4100, L500.4050, L100.0100, L502.0500 ####[facility] [address] [place], [address] Cholesterol in HDL [Mass/Vol] 37 mg/dL Low [facility] Comment on above: Result Comment: Lupe onal Cholesterol Education Program (NCEP) guidelines:<40 mg/dL: Low HDL-cholesterol (major risk factor for CHD)>= 60 mg/dL: High HDL-cholesterol (negative risk factor forCHD)HDL-cholesterol is affected by a number of factors, e.g.smoking, exercise, hormones, sex and age. Performed By: #### L 506.1001, L501.9520, L500.4100, L500.4050, L100.0100, L502.0500 ####[facility] [address] [place], [address] Cholesterol in LDL [Mass/Vol] 70 mg/dL Normal [facility] Comment on above: Result Comment: Bord fuyhyk=759-436 mg/dL Higher Ujyf=902 mg/dL or greater Performed By: #### L 506.1001, L501.9520, L500.4100, L500.4050, L100.0100, L502.0500 ####[facility] [address] [place], [address] Cholesterol in VLDL [Mass/Vol] 57 mg/dL High 5-40 [facility] Comment on above: Performed By: #### L 506.1001, L501.9520, L500.4100, L500.4050, L100.0100, L502.0500 ####[facility] [address] [place], [address] Triglyceride [Mass/Vol] 287 mg/dL High [facility] Comment on above: Result Comment: The drugs N-Acetylcysteine and Metamizole may falselydepress this assay.Normal range: <150 mg/dLBorderline High: 150-199 mg/dLHigh: 200-499 mg/dLVery High: >500 mg/dL Performed By: #### L 506.1001, L501.9520, L500.4100, L500.4050, L100.0100, L502.0500 ####[facility] [address] [place], [address] Lymphocytes Auto (Unsp spec) [#/Vol]Ordered By: [facility] mAy Solorzano on 10-17-2024 Lymphocytes (Bld) [#/Vol] 3.16 10*3/uL 0.83-4.51 [facility] Lymphocytes/100 WBC Auto (Un sp spec)Ordered By: [facility] Amykeiko Solorzano on 10-17-2024 Lymphocytes/100 WBC (Bld) 29.7 % 19-41 [facility] MCV (mean corpuscular volume ) determinationOrdered By: [facility] Amykeiko Solorzano on 10-17-2024 MCV (RBC) [Entitic vol] 82.1 fL 81-[address] [facility] Mean corpuscular hemoglobin (MCH) determinationOrdered By: [facility] on 10-17-2024 MCH (RBC) [Entitic mass] 26.6 pg Low 27.0-32.0 [facility] Mean corpuscular hemoglobin concentration (MCHC) determinationOrdered By: [facility] on 10-17-2024 MCHC (RBC) [Mass/Vol] 32.4 g/dL 32-36 [facility] Mean platelet volume determi nationOrdered By: [facility] Amykeiko Solorzano on 10-17-2024 Platelet mean volume (Bld) [Entitic vol] 9.7 fL 6.2-12.0 [facility] Microalbumin,Random Urineon 10-17-2024 MICROALBUMIN,UR < 12.0 Normal NO RANGE EST. [facility] Comment on above: Performed By: #### L 506.1001, L501.9520, L500.4100, L500.4050, L100.0100, L502.0500 ####[facility] [address] [facility] [place], [address] Monocyte percentageOrdered B y: [facility] Amy Solorzano on 10-17-2024 Monocytes/100 WBC (Bld) 6.0 % 0-[address] [facility] Neutrophil percentageOrdered By: [facility] on 10-17-2024 Neutrophils/100 WBC (Bld) 62.2 % 47-70 [facility] No Panel InformationOrdered By: [facility] on 10-17-2024 18 U/L <32 [facility] Nucleated red blood cell per centageOrdered By: [facility] Amy Solorzano on 10-17-2024 Nucleated RBC/100 WBC (Bld) [Ratio] 0 % 0-5 [facility] Platelet countOrdered By: [facility] Amy Solorzano on 10-17-2024 Platelets (Bld) [#/Vol] 332 10*3/uL 150-450 [facility] Potassium (Unsp spec) [Mass/ Vol]Ordered By: [facility] Amy Solorzano on 10-17-2024 Potassium [Moles/Vol] 4.6 mmol/L 3.3-5.1 [facility] Potassium measurement (mass/ volume)Ordered By: [facility] Amy Solorzano on 10-17-2024 Potassium (Unsp spec) [Mass/Vol] 4.6 mmol/L 3.3-5.1 [facility] RBC Auto (Bld) [#/Vol]Ordere d By: [facility] Amy Solorzano on 10-17-2024 RBC (Bld) [#/Vol] 4.81 10*6/uL 4.2-5.4 [facility] Screening total cholesterol/ high density lipoprotein (HDL) cholesterol ratioOrdered By: [facility] Amy Solorzano on 10-17-2024 Cholesterol.total/Breonna sterol in HDL [Mass ratio] 4.44 {ratio} [facility] Serum creatinine measurement (mass/volume)Ordered By: [facility] Amy Solorzano on 10-17-2024 Creatinine [Mass/Vol] 0.84 mg/dL 0.70-1.20 [facility] Serum globulin measurementOr dered By: [facility] Amy Solorzano on 10-17-2024 Globulin (S) [Mass/Vol] 3.9 g/dL 2.2-4.[address] [facility] Serum glucose measurement (m ass/volume)Ordered By: [facility] Amy Solorzano on 10-17-2024 Glucose [Mass/Vol] 233 mg/dL High 70-99 [facility] Serum or plasma alanine jordan otransferase (ALT) measurementOrdered By: [facility] Amy Solorzano on 10-17-2024 ALT [Catalytic activity/Vol] 12 U/L <35 [facility] Serum or plasma albumin hussein urement (mass/volume)Ordered By: [facility] Amy Solorzano on 10-17-2024 Albumin [Mass/Vol] 3.7 g/dL 3.5-5.0 [facility] Serum or plasma albumin/glob ulin mass ratioOrdered By: [facility] on 10-17-2024 Albumin/Globulin [Mass ratio] 0.9 {ratio} 0.9-2.4 [facility] Serum or plasma alkaline bradley sphatase measurementOrdered By: [facility] on 10-17-2024 ALP [Catalytic activity/Vol] 93 U/L 35-104 [facility] Serum or plasma calcium hussein urement (mass/volume)Or[facility] on 10-17-2024 Calcium [Mass/Vol] 9.2 mg/dL 7.6-11.0 [facility] Serum or plasma cholesterol in HDL measurement (mass/volume)Ordered By: [facility] 10-17-2024 Cholesterol in HDL [Mass/Vol] 37 mg/dL Low >40 [facility] Comment on above: National Cholesterol Education Program (NCEP) guidelines:<40 mg/dL: Low HDL-cholesterol (major risk factor for CHD)>= 60 mg/dL: High HDL-cholesterol (negative risk factor for CHD)HDL-cholesterol is affected by a number of factors, e.g. smoking, exercise, hormones, sex and age. Serum or plasma cholesterol measurement (mass/volume)Ordered By: [facility] Rashad on 10-17-2024 Cholesterol [Mass/Vol] 164 mg/dL <201 [facility] Comment on above: Cholesterol level, D esirable <200 mg/dLBorderline high cholesterol 200-239 mg/dLHigh cholesterol >=240 mg/dLRecommendations of the NCEP Adult Treatment Panel for the following risk-cutoff thresholds for the [place] population. Serum or plasma urea nitroge n measurement (mass/volume)Ordered By: [facility] on 10-17-2024 Urea nitrogen [Mass/Vol] 12 mg/dL 4-19 [facility] Sodium levelOrdered By: [facility] Rashad 10-17-2024 Sodium [Moles/Vol] 135 mmol/L 133-145 [facility] TSH DL <= 0.005 mIU/L QnOrde red By: [facility] Amy Solorzano on 10-17-2024 Thyroid Stimulating Hormone (TSH) 1.180 uIU/mL 0.300-4.200 [facility] TSH Qn 1.180 uIU/mL 0.300-4.200 [facility] Thyroid Stim Hormone (TSH)on 10-17-2024 TSH 1.180 uIU/mL Normal 0.300-4.200 [facility] Comment on above: Performed By: #### L 506.1001, L501.9520, L500.4100, L500.4050, L100.0100, L502.0500 ####[facility] [address] [place], [place], [address] Total proteinOrdered By: [facility] Amy Solorzano on 10-17-2024 Protein [Mass/Vol] 7.5 g/dL 5.9-8.4 [facility] Triglycerides measurementOrd ered By: [facility] Amy Solorzano on 10-17-2024 Triglyceride [Mass/Vol] 287 mg/dL High <[address] [facility] Comment on above: The drugs N-Acetylcy steine and Metamizole may falsely depress this assay. Normal range: <150 mg/dLBorderline High: 150-199 mg/dLHigh: 200-499 mg/dLVery High: >500 mg/dL Urine albumin measurement [facility] detection limit of 20 mg/L or less (mass/volume)Ordered By: [facility] Amy Solorzano on 10-17-2024 Albumin DL <= 20 mg/L (U) [Mass/Vol] < 12.0 mg/L NO RANGE EST. [facility] Vitamin D, 25-hydroxyOrdered By: [facility] HospitalAmy[facility]ma Solor[facility] on 10-17-2024 Vitamin D 25-Hydroxy 10.7 ng/mL Low 30-100 [facility] Comment on above: Vitamin D StatusDefi ciency: <20 ng/mL (50nmol/L)Insufficiency: 20-30 ng/mL (50-75 nmol/L)Sufficiency: 30-100 ng/mL (75-250 nmol/L)Toxicity: >100 ng/mL (>250 nmol/L) Vitamin D,25 Hydroxyon 10-17 Vitamin D 25-OH 10.7 ng/mL Low 30-100 [facility] Comment on above: Result Comment: Claudia min D StatusDeficiency: <20 ng/mL (50nmol/L)Insufficiency: 20-30 ng/mL (50-75 nmol/L)Sufficiency: 30-100 ng/mL (75-250 nmol/L)Toxicity: >100 ng/mL (>250 nmol/L) Performed By: #### L 506.1001, L501.9520, L500.4100, L500.4050, L100.0100, L502.0500 ####[facility] [address] [place], [address] White blood cell (WBC) count Ordered By: [facility] Amy Solorzano on 10-17-2024 WBC (Bld) [#/Vol] 10.6 10*3/uL 4.4-11.0 [facility] CNOVon 07-03-2024 CN Office Visit ([facility] ) GHISLAINE GIVENS ([id number]) 1990 F [place] Date Time Provider Department 07/03/24 1:00 PM IRAIS HANNA [facility] During your visit today, we recorded the following information about you: Temperature Pulse Respiration Blood pressure 97 degrees 104/minute 16/minute 122/90 Weight Last Period 115.9 kg 06/20/24 Irais Hanna PA 07/03/2024 1:13 PM Signed This note was created using NoteWriter. Subjective Ghislaine Givens is a 34 year [...] a diabeti (more content not included)... Normal [facility] XR CHEST 2V FRONTAL/LATon XR CHEST [...] Low lung volumes. No acute radiographic abnormality. Manager Rfid: OLGA Transcribe Date/Time: Jul 03 2024 1:07P Dictated by : THANIA ROSS DO This examination was interpreted and the report reviewed and electronically signed by: THANIA ROSS DO on Jul 03 2024 1:08PM EST [id number] Normal [facility] XR Chest PA and Lateralon IMPRESSION: Low lung volumes. No acute radiographic abnormality. Manager Rfid: OLGA Transcribe Date/Time: Jul 03 2024 1:07P [...] DIVISION OF RADIOLOGY Provider, Susana Dewey - 07/03/2024 * * *Final Report* * [...] Low lung volumes. No acute radiographic abnormality. Manager Rfid: OLGA Transcribe Date/Time: Jul 03 2024 1:07P Dictated by : THANIA ROSS DO This examination was interpreted and the report reviewed and electronically signed by: THANIA ROSS DO on Jul 03 2024 1:08PM [facility] Radiology Study observation (narrative) Melissa gupta [facility] XR Chest PA and LateralOrder ed By: [facility] Provider on 07-03-2024 [facility] CNOVon 06-26-2024 CNOV Office Visit ([facility]WSTR ) GHISLAINE GIVENS ([id number]) 1990 F [employer] Date Time Provider Department 06/26/24 10:30 AM FRANTZ AREVALO [facility] During your visit today, we recorded the following information about you: Temperature Pulse Respiration Blood pressure 97.4 degrees 117/minute 18/minute 122/78 Weight 115.7 kg Frantz Arevalo PA-C 06/26/2024 11:03 AM Signed This note was created using [employer]. Subjective Ghislaine Givens is a 34 year [...] asthma, uncomplicated - ICD9: 493.90, ICD10: J45.20 rFantz Arevalo PA-C Allergies As of Date: 06/26/2024 [...] powder T (more content not included)... Normal [facility] CBC W/Diff, Automatedon 10- Absolute Lymph 4.36 X10 3/uL Normal 0.83-4.51 [facility] Comment on above: Performed By: #### L 100.0100, L502.0500, L501.9520, L500.4050, L500.4100 ####[facility] [address] [place], [address] Absolute Neut 7.1 X10 3/uL Normal 2.0-7.7 [facility] Comment on above: Performed By: #### L 100.0100, L502.0500, L501.9520, L500.4050, L500.4100 ####[facility] [address] [place], [address] Basophils/100 WBC (Bld) 0.6 % Normal 0-[address] [facility] Comment on above: Performed By: #### L 100.0100, L502.0500, L501.9520, L500.4050, L500.4100 ####[facility] [address] [place], [address] Eosinophils/100 WBC (Bld) 1.3 % Normal 0-5 [facility] Comment on above: Performed By: #### L 100.0100, L502.0500, L501.9520, L500.4050, L500.4100 ####[facility] [address] [place], [address] Erythrocyte distribution width (RBC) [Ratio] 13.6 % Normal 11.6-14.6 [facility] Comment on above: Performed By: #### L 100.0100, L502.0500, L501.9520, L500.4050, L500.4100 ####[facility] [address] [place], [address] Hematocrit (Bld) [Volume fraction] 41.6 % Normal 37-47 [facility] Comment on above: Performed By: #### L 100.0100, L502.0500, L501.9520, L500.4050, L500.4100 ####[facility] [address] [place], [address] Hemoglobin (Bld) [Mass/Vol] 13.1 g/dL Normal 12.0-15.0 [facility] Comment on above: Performed By: #### L 100.0100, L502.0500, L501.9520, L500.4050, L500.4100 ####[facility] [address] [place], [address] IG% 1.300 High 0.0-0.9 [facility] Comment on above: Result Comment: IG% - Immature Granulocytes (promyelocytes, myelocytes andmetamyelocytes) > 1% indicates that a LEFT SHIFT is Present. Performed By: #### L 100.0100, L502.0500, L501.9520, L500.4050, L500.4100 ####[facility] [address] [place], [address] Lymphocytes/100 WBC (Bld) 34.7 % Normal 19-41 [facility] Comment on above: Performed By: #### L 100.0100, L502.0500, L501.9520, L500.4050, L500.4100 ####[facility] [address] [place], [address] MCH (RBC) [Entitic mass] 26.3 pg Low 27.0-32.0 [facility] Comment on above: Performed By: #### L 100.0100, L502.0500, L501.9520, L500.4050, L500.4100 ####[facility] [address] [place], [address] MCHC (RBC) [Mass/Vol] 31.5 g/dL Low 32-36 [facility] Comment on above: Performed By: #### L 100.0100, L502.0500, L501.9520, L500.4050, L500.4100 ####[facility] [address] [place], [address] MCV (RBC) [Entitic vol] 83.5 fL Normal 81-[address] [facility] Comment on above: Performed By: #### L 100.0100, L502.0500, L501.9520, L500.4050, L500.4100 ####[facility] [address] [place], [address] Monocytes/100 WBC (Bld) 5.4 % Normal 0-10 [facility] Comment on above: Performed By: #### L 100.0100, L502.0500, L501.9520, L500.4050, L500.4100 ####[facility] [address] [place], [address] Neutrophils/100 WBC (Bld) 56.7 % Normal 47-70 [facility] Comment on above: Performed By: #### L 100.0100, L502.0500, L501.9520, L500.4050, L500.4100 ####[facility] [address] [place], [address] Nucleated RBC (Bld) [#/Vol] 0 10*3/uL Normal 0-5 [facility] Comment on above: Performed By: #### L 100.0100, L502.0500, L501.9520, L500.4050, L500.4100 ####[facility] [address] [place], [address] Platelet mean volume (Bld) [Entitic vol] 9.4 fL Normal 6.2-12.0 [facility] Comment on above: Performed By: #### L 100.0100, L502.0500, L501.9520, L500.4050, L500.4100 ####[facility] [address] [place], [address] Platelets (Bld) [#/Vol] 368 10*3/uL Normal 150-450 [facility] Comment on above: Performed By: #### L 100.0100, L502.0500, L501.9520, L500.4050, L500.4100 ####[facility] [address] [place], [address] RBC (Bld) [#/Vol] 4.98 10*6/uL Normal 4.2-5.4 [facility] Comment on above: Performed By: #### L 100.0100, L502.0500, L501.9520, L500.4050, L500.4100 ####[facility] [address] [place], [address] RDW SD 41.3 fl Normal 35.1-43.9 [facility] Comment on above: Performed By: #### L 100.0100, L502.0500, L501.9520, L500.4050, L500.4100 ####[facility] [address] [place], [address] WBC (Bld) [#/Vol] 12.6 10*3/uL High 4.4-11.0 [facility] Comment on above: Performed By: #### L 100.0100, L502.0500, L501.9520, L500.4050, L500.4100 ####[facility] [address] [place], [address] [facility] Albumin [Mass/Vol] 3.3 g/dL Normal 3.2-5.0 [facility] Comment on above: Performed By: #### L 100.0100, L502.0500, L501.9520, L500.4050, L500.4100 ####[facility] [address] [place], [address] Albumin/Globulin [Mass ratio] 0.6 {ratio} Low 0.9-2.4 [facility] Comment on above: Performed By: #### L 100.0100, L502.0500, L501.9520, L500.4050, L500.4100 ####[facility] [address] [place], [address] ALK P 89 U/L Normal 45-117 [facility] Comment on above: Performed By: #### L 100.0100, L502.0500, L501.9520, L500.4050, L500.4100 ####[facility] [address] [place], [address] ALT [Catalytic activity/Vol] 24 U/L Normal 13-56 [facility] Comment on above: Performed By: #### L 100.0100, L502.0500, L501.9520, L500.4050, L500.4100 ####[facility] [address] [place], [address] AST [Catalytic activity/Vol] 9 U/L Low 15-37 [facility] Comment on above: Performed By: #### L 100.0100, L502.0500, L501.9520, L500.4050, L500.4100 ####[facility] [address] [place], [address] Bilirubin [Mass/Vol] 0.30 mg/dL Normal 0.20-1.00 [facility] Comment on above: Result Comment: For patients on eltrombopag therapy, use of Dimension [place] TBIL is not recommended. Performed By: #### L 100.0100, L502.0500, L501.9520, L500.4050, L500.4100 ####[facility] [address] [place], [address] BUN/CRE 13.5 RATIO Normal 10-20 [facility] Comment on above: Performed By: #### L 100.0100, L502.0500, L501.9520, L500.4050, L500.4100 ####[facility] [address] [place], [address] CA,Total 9.1 mg/dL Normal 8.5-10.1 [facility] Comment on above: Performed By: #### L 100.0100, L502.0500, L501.9520, L500.4050, L500.4100 ####[facility] [address] [place], [address] Chloride [Moles/Vol] 108 mmol/L High 98-107 [facility] Comment on above: Performed By: #### L 100.0100, L502.0500, L501.9520, L500.4050, L500.4100 ####[facility] [address] [place], [address] CO2 [Moles/Vol] 23.0 mmol/L Normal 21.0-32.0 [facility] Comment on above: Performed By: #### L 100.0100, L502.0500, L501.9520, L500.4050, L500.4100 ####[facility] [address] [place], [address] Creatinine [Mass/Vol] 0.89 mg/dL Normal 0.55-1.02 [facility] Comment on above: Result Comment: The validity of the calculated GFR GFRAA in patients over70 years has not been determined. Clinical correlation isessential. Performed By: #### L 100.0100, L502.0500, L501.9520, L500.4050, L500.4100 ####[facility] [address] [place], [address] EST GFR - AA 95 mL/min Normal >60 [facility] Comment on above: Result Comment: Afri can [place] GFR Calc Performed By: #### L 100.0100, L502.0500, L501.9520, L500.4050, L500.4100 ####[facility] [address] [place], [address] GAP 7 Normal 5-15 [facility] Comment on above: Performed By: #### L 100.0100, L502.0500, L501.9520, L500.4050, L500.4100 ####[facility] [address] [place], [address] GFR/1.73 sq M.predicted among non-blacks MDRD (S/P/Bld) [Vol rate/Area] 78 mL/min/{1.73_m2} Normal >60 [facility] Comment on above: Result Comment: Non- GFR Calc Performed By: #### L 100.0100, L502.0500, L501.9520, L500.4050, L500.4100 ####[facility] [address] [place], [address] Globulin (S) [Mass/Vol] 5.2 g/dL High 2.2-4.[address] [facility] Comment on above: Performed By: #### L 100.0100, L502.0500, L501.9520, L500.4050, L500.4100 ####[facility] [address] [place], [address] Glucose [Mass/Vol] 177 mg/dL High 74-106 [facility] Comment on above: Result Comment: Fast ing Glucose result greater than or equal to 126 mg/dLsuggests DIABETES MELLITUS per A.D.A. criteria. Performed By: #### L 100.0100, L502.0500, L501.9520, L500.4050, L500.4100 ####[facility] [address] [place], [address] Potassium [Moles/Vol] 4.2 mmol/L Normal 3.5-5.1 [facility] Comment on above: Performed By: #### L 100.0100, L502.0500, L501.9520, L500.4050, L500.4100 ####[facility] [address] [place], [address] Sodium [Moles/Vol] 137 mmol/L Normal 136-145 [facility] Comment on above: Performed By: #### L 100.0100, L502.0500, L501.9520, L500.4050, L500.4100 ####[facility] [address] [place], [address] T PROT 8.5 g/dL High 6.4-8.2 [facility] Comment on above: Performed By: #### L 100.0100, L502.0500, L501.9520, L500.4050, L500.4100 ####[facility] [address] [place], [address] Urea nitrogen [Mass/Vol] 12 mg/dL Normal 7-18 [facility] Comment on above: Performed By: #### L 100.0100, L502.0500, L501.9520, L500.4050, L500.4100 ####[facility] [address] [place], [address] Lipid Profileon 04-25-2024 Cholesterol [Mass/Vol] 209 mg/dL High 200 [facility] Comment on above: Result Comment: <200 mg/dL Desirable 200-240 mg/dL Borderline >240 mg/dL High Risk Performed By: #### L 100.0100, L502.0500, L501.9520, L500.4050, L500.4100 ####[facility] [address] [place], [address] Cholesterol in HDL [Mass/Vol] 37 mg/dL Low [facility] Comment on above: Result Comment: The drugs N-Acetylcysteine and Metamizole may falselydepress this assay. Reference Range HDL <40 mg/dL Low HDL Cholesterol HDL >or= 60 mg/dL High HDL Cholesterol Performed By: #### L 100.0100, L502.0500, L501.9520, L500.4050, L500.4100 ####[facility] [address] [place], [address] Cholesterol in LDL [Mass/Vol] 127 mg/dL Normal 0-130 [facility] Comment on above: Performed By: #### L 100.0100, L502.0500, L501.9520, L500.4050, L500.4100 ####[facility] [address] [place], [address] Cholesterol in VLDL [Mass/Vol] 45 mg/dL High 5-40 [facility] Comment on above: Performed By: #### L 100.0100, L502.0500, L501.9520, L500.4050, L500.4100 ####[facility] [address] [place], [address] Triglyceride [Mass/Vol] 227 mg/dL High [facility] Comment on above: Result Comment: The drugs N-Acetylcysteine and Metamizole may falselydepress this assay.Serum Triglycerides Reference Interval Normal <150 mg/dL Borderline high 150 - 199 mg/dL High 200 - 499 mg/dL Very High > or = 500 mg/dL Performed By: #### L 100.0100, L502.0500, L501.9520, L500.4050, L500.4100 ####[facility] [address] [place], [address] Microalbumin,Random Urineon 04-25-2024 MICROALBUMIN,UR 147.0 mg/L Normal NO RANGE EST. [facility] Comment on above: Performed By: #### L 100.0100, L502.0500, L501.9520, L500.4050, L500.4100 ####[facility] [address] [place], [address] Thyroid Stim Hormone (TSH)on 04-25-2024 TSH 0.825 uIU/mL Normal 0.358-3.740 [facility] Comment on above: Performed By: #### L 100.0100, L502.0500, L501.9520, L500.4050, L500.4100 ####[facility] [address] [place], [address] Fungus cultureOrdered By: Neva Forrest on 07-23-2023 Fungus identified Cx Nom (Unsp spec) [facility] Fungus stainOrdered By: Jonas Forrest on 07-23-2023 Fungus identified Fungus stain Nom (Unsp spec) [facility] Glucose Glucometer (BldC) [M ass/Vol]Ordered By: Abdirizak Forrest on 07-23-2023 Glucose [Mass/Vol] 204 mg/dL 74-106 [facility] Comment on above: MANAGEMENT OF PATIEN T CARE PER NURSING PROTOCOL Laboratory - Chemistry and C hemistry - challengeOrdered By: Abdirahman Morton on 07-23-2023 HCG ( test) Ql (U) Negative [facility] Comment on above: Very dilute urine sp ecimens, as indicated by a low specificgravity, may not contain retail field representative levels of hCG. If is still suspected, a first morning urinespecimen should be collected 48 hours later and tested. No Panel InformationOrdered By: Abdirahman Morton on 07-23-2023 Negative [facility] Laboratory - Chemistry and C hemistry - challengeOrdered By: Abdirahman Morton on 07-16-2023 Magnesium [Mass/Vol] 2.0 mg/dL 1.6-2.6 [facility] No Panel InformationOrdered By: Abdirahman Morton on 07-16-2023 2.0 mg/dL 1.6-2.6 [facility] 25(OH)D3 SerPl-mCncon 2023 25-hydroxyvitamin D3 [Mass/Vol] 9.5 ng/mL Low 31.0-80.0 [facility] Comment on above: Order Comment: Mahogany vargas Type: BLOOD SPECIMEN Ordering Facility: [facility] Address: [address] [place] [address] Result Comment: Clas sification of 25 [place] Vitamin D status: Deficiency/Insufficiency: < or = 30 ng/ml. Sufficiency/Optimal Levels: 31-80 ng/mL Toxicity: > 100 ng/mL. Test performed by chemiluminescent immunoassay. Performed By: #### 1 989-3 #### [facility] CLIA [id number] [address] [place] [address] [place] CBC panel Auto (Bld)on 07-14 Erythrocyte distribution width (RBC) [Ratio] 13.2 % Normal 11.5-15.0 [facility] Comment on above: Order Comment: Timuri men Type: BLOOD SPECIMEN Ordering Facility: [facility] Address: [address] [place] [address] Performed By: #### 5 8410-2 #### [facility] CLIA [id number] [address] [place] [address] [place] Hematocrit (Bld) [Volume fraction] 41.9 % Normal 36.0-46.0 [facility] Comment on above: Order Comment: Mahogany men Type: BLOOD SPECIMEN Ordering Facility: [facility] Address: [address] [place] [address] Performed By: #### 5 8410-2 #### [facility] CLIA [id number] [address] [place] [address] [place] Hemoglobin (Bld) [Mass/Vol] 12.8 g/dL Normal 11.5-15.5 [facility] Comment on above: Order Comment: Speci men Type: BLOOD SPECIMEN Ordering Facility: [facility] Address: [address] [place] [address] Performed By: #### 5 8410-2 #### [facility] CLIA [id number] [address] [place] [address] [place] MCH (RBC) [Entitic mass] 26.1 pg Normal 26.0-34.0 [facility] Comment on above: Order Comment: Speci men Type: BLOOD SPECIMEN Ordering Facility: [facility] Address: [address] [place] [address] Performed By: #### 5 8410-2 #### [facility] CLIA [id number] [address] [place] [address] [place] MCHC (RBC) [Mass/Vol] 30.5 g/dL Normal 30.5-36.0 [facility] Comment on above: Order Comment: Speci men Type: BLOOD SPECIMEN Ordering Facility: [facility] Address: [address] [place] [address] Performed By: #### 5 8410-2 #### [facility] CLIA [id number] [address] [place] [address] [place] MCV (RBC) [Entitic vol] 85.3 fL Normal 80.0-100.0 [facility] Comment on above: Order Comment: Speci men Type: BLOOD SPECIMEN Ordering Facility: [facility] Address: [address] [place] [address] Performed By: #### 5 8410-2 #### [facility] CLIA [id number] [address] [place] [address] [place] Nucleated RBC (Bld) [#/Vol] 10*3/uL Normal <0.01 [facility] Comment on above: Order Comment: Speci men Type: BLOOD SPECIMEN Ordering Facility: [facility] Address: [address] [place] [address] Performed By: #### 5 8410-2 #### [facility] CLIA [id number] [facility] [place] [address] [place] Platelet mean volume (Bld) [Entitic vol] 10.0 fL Normal 9.0-12.7 [facility] Comment on above: Order Comment: Speci men Type: BLOOD SPECIMEN Ordering Facility: [facility] Address: [address] [place] [address] Performed By: #### 5 8410-2 #### [facility] CLIA [id number] [address] [place] [address] [place] Platelets (Bld) [#/Vol] 417 10*3/uL High 150-400 [facility] Comment on above: Order Comment: Speci men Type: BLOOD SPECIMEN Ordering Facility: [facility] Address: [address] [place] [address] Performed By: #### 5 8410-2 #### [facility] CLIA [id number] [address] [place] [address] [place] RBC (Bld) [#/Vol] 4.91 10*6/uL Normal 3.90-5.20 [facility] Comment on above: Order Comment: Speci men Type: BLOOD SPECIMEN Ordering Facility: [facility] Address: [address] [place] [address] Performed By: #### 5 8410-2 #### [facility] CLIA [id number] [address] [place] [address] [place] WBC (Bld) [#/Vol] 7.59 10*3/uL Normal 3.70-11.00 [facility] Comment on above: Order Comment: Speci men Type: BLOOD SPECIMEN Ordering Facility: [facility] Address: [address] [place] [address], [place] [address] Performed By: #### 5 8410-2 #### [facility] CLIA [id number] [address] [place] [address] [place] Comprehensive metabolic 2000 panelon 07-14-2023 Albumin [Mass/Vol] 4.0 g/dL Normal 3.9-4.9 [facility] Comment on above: Order Comment: Speci men Type: BLOOD SPECIMEN Ordering Facility: [facility] Address: [address] [place] [address], [place] [address] Performed By: #### 3 016-3, 53030-8 #### [facility] CLIA [id number] [address] [place] [address] [place] ALP [Catalytic activity/Vol] 106 U/L Normal 34-123 [facility] Comment on above: Order Comment: Speci men Type: BLOOD SPECIMEN Ordering Facility: [facility] Address: [address] [place] [address], [place] [address] Performed By: #### 3 016-3, 15201-6 #### [facility] CLIA [id number] [address] [place] [address] [place] ALT [Catalytic activity/Vol] 11 U/L Normal 7-38 [facility] Comment on above: Order Comment: Speci men Type: BLOOD SPECIMEN Ordering Facility: [facility] Address: [address] [place] [address], [place] [address] Performed By: #### 3 016-3, 50113-7 #### [facility] CLIA [id number] [address] [place] [id number] [place] Anion gap [Moles/Vol] 14 mmol/L Normal 9-18 [facility] Comment on above: Order Comment: Speci men Type: BLOOD SPECIMEN Ordering Facility: [facility] Address: [address], [place] [address] Performed By: #### 3 016-3, 15196-9 #### [facility] CLIA [id number] [address] [place] [address] [place] AST [Catalytic activity/Vol] 13 U/L Normal 13-35 [facility] Comment on above: Order Comment: Speci men Type: BLOOD SPECIMEN Ordering Facility: [facility] Address: [address] [place] [address] RD, [place] [address] Performed By: #### 3 016-3, 56970-1 #### [facility] CLIA [id number] [address] [place] [address] [place] Bilirubin [Mass/Vol] 0.3 mg/dL Normal 0.2-1.3 [facility] Comment on above: Order Comment: Speci men Type: BLOOD SPECIMEN Ordering Facility: [facility] Address: [address] [place] [address], [place] [address] Performed By: #### 3 016-3, 62572-2 #### [facility] CLIA [id number] [address] [place] [address] [place] Calcium [Mass/Vol] 9.6 mg/dL Normal 8.5-10.2 [facility] Comment on above: Order Comment: Speci men Type: BLOOD SPECIMEN Ordering Facility: [facility] Address: [address], [place] [address] Performed By: #### 3 016-3, 90714-5 #### [facility] CLIA [id number] [address] [place] [address] [place] Chloride [Moles/Vol] 101 mmol/L Normal 97-105 [facility] Comment on above: Order Comment: Speci men Type: BLOOD SPECIMEN Ordering Facility: [facility] Address: [address] [place] [address], [place] [address] Performed By: #### 3 016-3, 90659-3 #### [facility] CLIA [id number] [address] [place] [address] [place] CO2 [Moles/Vol] 23 mmol/L Normal 22-30 [facility] Comment on above: Order Comment: Speci men Type: BLOOD SPECIMEN Ordering Facility: [facility] Address: [address] [place] [address] Performed By: #### 3 016-3, 89297-3 #### [facility] CLIA [id number] [address] [place] [address] [place] Creatinine [Mass/Vol] 0.69 mg/dL Normal 0.58-0.96 [facility] Comment on above: Order Comment: Speci men Type: BLOOD SPECIMEN Ordering Facility: [facility] Address: [address] [place] [address] Performed By: #### 3 016-, 87214-1 #### [facility] CLIA [id number] [address] [place] [address] [place] Creatinine and Glomerular filtration rate.predicted panel (S/P/Bld) 119 mL/min/1.73m??? Normal >=60 [facility] Comment on above: Order Comment: Speci men Type: BLOOD SPECIMEN Ordering Facility: [facility] Address: [address] [place] [address] Result Comment: Samreen mated Glomerular Filtration Rate [...] actual GFR. Performed By: #### 3 016-3, 44712-2 #### [facility] CLIA [id number] [address] [id number] [address] [place] Glucose [Mass/Vol] 158 mg/dL High 74-99 [facility] Comment on above: Order Comment: Speckaylene vargas Type: BLOOD SPECIMEN Ordering Facility: [facility] Address: [address] [place] [address], [place] [address] Result Comment: The [place] Diabetes Association (ADA) provides guidance for cutoff [...] Standards of Medical Care in Diabetes 2016, [place] Diabetes Association. Diabetes Care. 2016.39(Suppl 1). Performed By: #### 3 016-3, 66886-7 #### [facility] CLIA [id number] [address] [place] [address] [place] Potassium [Moles/Vol] 4.4 mmol/L Normal 3.7-5.1 [facility] Comment on above: Order Comment: Mahogany vargas Type: BLOOD SPECIMEN Ordering Facility: [facility] Address: [address] [place] [address] Performed By: #### 3 016-3, 89687-6 #### [facility] CLIA [id number] [address] [place] [id number] [place] Protein [Mass/Vol] 7.5 g/dL Normal 6.3-8.0 [facility] Comment on above: Order Comment: Mahogany vargas Type: BLOOD SPECIMEN Ordering Facility: [facility] Address: [address] [place] [address] Performed By: #### 3 016-3, 88034-8 #### [facility] CLIA [id number] [address] [place] [id number] [place] Sodium [Moles/Vol] 138 mmol/L Normal 136-144 [facility] Comment on above: Order Comment: Mahogany vargas Type: BLOOD SPECIMEN Ordering Facility: [facility] Address: [address] [place] [address] Performed By: #### 3 016-3, 36527-6 #### [facility] CLIA [id number] [address] [place] [address] [place] Urea nitrogen [Mass/Vol] 9 mg/dL Normal 7-21 [facility] Comment on above: Order Comment: Mahogany vargas Type: BLOOD SPECIMEN Ordering Facility: [facility] Address: [address] [place] [address] Performed By: #### 3 016-3, 99712-0 #### [facility] CLIA [id number] [address] [place] [address] [place] HbA1c (Bld)on 07-14-2023 Average glucose Estimated from glycated hemoglobin (Bld) [Mass/Vol] 163 mg/dL Normal [facility] Comment on above: Order Comment: Mahogany vragas Type: BLOOD SPECIMEN Ordering Facility: [facility] Address: [address] [place] [address] Result Comment: eAG: (Estimated average glucose) is a calculated value from HgbA1c and is retail field representative of the average blood glucose level in the last 2-3 month period. Performed By: #### 5 5454-3 #### [facility] CLIA [id number] [address] [place] [address] [place] HbA1c (Bld) [Mass fraction] 7.3 % High 4.3-5.6 [facility] Comment on above: Order Comment: Mahogany [facility] Type: BLOOD SPECIMEN Ordering Facility: [facility] Address: [address] [place] [address] Result Comment: [place] Diabetes Association guidelines indicate that patients with HgbA1c in the range 5.7-6.4% are at increased risk for development of diabetes, and intervention by lifestyle modification may be beneficial. HgbA1c greater or equal to 6.5% is considered diagnostic of diabetes. Performed By: #### 5 5454-3 #### [facility] CLIA [id number] [address] [place] [address] [place] TSH SerPl-aCncon 07-14-2023 TSH Qn 0.660 m[IU]/L Normal 0.270-4.200 [facility] Comment on above: Order Comment: Speci men Type: BLOOD SPECIMEN Ordering Facility: [facility] Address: [address] [facility] [place] [id number] Result Comment: If t he patient is , TSH reference range varies by gestational period: First Trimester (weeks 9-12): 0.180-2.990 mIU/L Second Trimester: 0.110-3.980 mIU/L Third Trimester: 0.480-4.710 mIU/L Francois Matthews et al. A Practical Approach for the Verifications and Determination of Site- and Trimester-Specific Reference Intervals for Thyroid Function tests in . Thyroid, 2019:29:3:412-420. Emeka E, et al. 2017 Guidelines of the [place] Thyroid Association for the Diagnosis and Management of Thyroid Disease during and the . Thyroid, 2017:27:3:315-389. Performed By: #### 3 016-3, 40184-2 #### [facility] CLIA [id number] [address] [place] [address] [place] Absolute lymphocyte countOrd ered By: Willie Dhillon on 07-12-2023 Lymphocytes Auto (Unsp spec) [#/Vol] 4.46 10*3/uL 0.83-4.51 [facility] Basophil percentageOrdered B y: Willie Dhillon on 07-12-2023 Basophil percentage 5-10 SEEN /hpf 0-[address] [facility] Basophil percentage 177 mg/dL 74-106 [facility] Basophil percentage 9.0 g/dL 6.4-8.2 [facility] Basophil percentage 0.60 mg/dL 0.20-1.00 [facility] Basophil percentage 136 mmol/L 136-145 [facility] Basophil percentage 4.2 mmol/L 3.5-5.1 [facility] Basophil percentage 100 mmol/L 98-107 [facility] Basophils (Bld) [#/Vol] 10.5 10*3/uL 4.4-11.0 [facility] Basophils (Bld) [#/Vol] 5.4 10*3/uL 2.0-7.7 [facility] Basophils/100 WBC (Bld) 51.3 % 47-[address] [facility] Basophils/100 WBC (Bld) 0.3 % 0-[address] [facility] Basophils/100 WBC (Bld) 0.4 % 0-[address] [facility] Beta hCG serum qualOrdered B y: Willie Dhillon on 07-12-2023 Beta HCG ( test) Ql Negative [facility] Bilirubin Test strip Ql (U)O rdered By: Willie Dhillon on 07-12-2023 Bilirubin Ql (U) 1 mg/dL Negative [facility] Blood erythrocytes count (nu mber/volume)Ordered By: Willie Dhillon on 07-12-2023 RBC (Bld) [#/Vol] 5.20 10*6/uL 4.2-5.4 [facility] Blood hemoglobin measurement (mass/volume)Ordered By: Willie Dhillon on 07-12-2023 Hemoglobin (Bld) [Mass/Vol] 13.6 g/dL 12.0-15.0 [facility] Blood lymphocytes/100 leukoc ytesOrdered By: Willie Dhillon on 07-12-2023 Lymphocytes/100 WBC (Bld) 42.6 % 19-41 [facility] Blood monocytes/100 leukocyt esOrdered By: Willie Dhillon on 07-12-2023 Monocytes/100 WBC (Bld) 5.2 % 0-[address] [facility] Blood platelet mean volumeOr dered By: Willie Dhillon on 07-12-2023 Platelet mean volume (Bld) [Entitic vol] 9.2 fL 6.2-12.0 [facility] Determination of erythrocyte mean corpuscular volume (MCV)Ordered By: Willie Dhillon on 07-12-2023 MCV (RBC) [Entitic vol] 82.7 fL 81-[address] [facility] Hematocrit Auto (Bld) [Volum e fraction]Ordered By: Willie Dhillon on 07-12-2023 Hematocrit (Bld) [Volume fraction] 43.0 % 37-47 [facility] Ketones Test strip Ql (U)Ord ered By: Willie Dhillon on 07-12-2023 Ketones Ql (U) 5 mg/dl Negative [facility] MCHC Auto (RBC) [Mass/Vol]Or dered By: Willie Dhillon on 07-12-2023 MCHC (RBC) [Mass/Vol] 31.6 g/dL 32-36 [facility] Mucus LM Ql (Urine sed)Order ed By: Willie Dhillon on 07-12-2023 Mucus Ql (Urine sed) 0 SEEN /hpf [facility] Nitrite Test strip Ql (U)Ord ered By: Willie Dhillon on 07-12-2023 Nitrite Ql (U) Negative Negative [facility] No Panel InformationOrdered By: Willie Dhillon on 07-12-2023 26.2 pg 27.0-32.0 [facility] 13.3 % 11.6-14.6 [facility] 39.8 fl 35.1-43.9 [facility] 0.200 % 0.0-0.9 [facility] 0 % 0-5 [facility] 68 mL/min >60 [facility] 82 mL/min >60 [facility] 75.55 ml/min [facility] 12.9 RATIO 10-20 [facility] 5.4 g/dL 2.2-4.2 [facility] 30 U/L 13-75 [facility] 112 U/L 45-117 [facility] 12 U/L 13-56 [facility] 28.0 mmol/L 21.0-32.0 [facility] Negative < 50 ng/mL [facility] Positive < 500 ng/mL [facility] Platelets bldOrdered By: Heath Dhillon on 07-12-2023 Platelets (Bld) [#/Vol] 459 10*3/uL 150-450 [facility] Protein Test strip Ql (U)Ord ered By: Willie Dhillon on 07-12-2023 Protein Ql (U) 30 mg/dl Negative [facility] Serum or plasma albumin hussein urement (mass/volume)Ordered By: Willie Dhillon on 07-12-2023 Albumin [Mass/Vol] 3.6 g/dL 3.2-5.0 [facility] Serum or plasma albumin/glob ulin mass ratioOrdered By: Willie Dhillon on 07-12-2023 Albumin/Globulin [Mass ratio] 0.7 {ratio} 0.9-2.4 [facility] Serum or plasma calcium hussein urement (mass/volume)Ordered By: Willie Dhillon on 07-12-2023 Calcium [Mass/Vol] 9.3 mg/dL 8.5-10.1 [facility] Serum or plasma creatinine m easurement (mass/volume)Ordered By: Willie Dhillon on 07-12-2023 Creatinine [Mass/Vol] 1.01 mg/dL 0.55-1.02 [facility] Serum or plasma urea nitroge n measurement (mass/volume)Ordered By: Willie Dhillon on 07-12-2023 Urea nitrogen [Mass/Vol] 13 mg/dL 7-18 [facility] Squamous epithelial cells de tection in urine sediment by light microscopyOrdered By: Willie Dhillon on 07-12-2023 Epithelial cells.squamous LM Ql (Urine sed) 10-25 SEEN /hpf 5-10 [facility] Thin prep Papanicolaou smear with manual screeningOrdered By: Willie Dhillon on 07-12-2023 Thin prep Papanicolaou smear with manual screening 21 U/L 15-37 [facility] Thin prep Papanicolaou smear with manual screening 8 5-15 [facility] Urine blood detectionOrdered By: Willie Dhillon on 07-12-2023 RBC Ql (U) 10 /ul Negative [facility] RBC Ql (U) 0-5 SEEN /hpf 0-5 [facility] Urine clarityOrdered By: Heath Dhillon on 07-12-2023 Clarity (U) Cloudy Clear [facility] Urine color determinationOrd ered By: Willie Dhillon on 07-12-2023 Color (U) Yellow Yellow [facility] Urine glucose detectionOrder ed By: Willie Dhillon on 07-12-2023 Glucose Ql (U) Normal mg/dl Normal [facility] Urine leukocyte esterase det ection by dipstickOrdered By: Willie Dhillon on 07-12-2023 Leukocyte esterase Test strip Ql (U) 100 /ul Negative [facility] Urine pHOrdered By: Willie mo on 07-12-2023 pH (U) 7.0 [pH] 5.0 - 8.0 [facility] Urine phencyclidine (PCP) de tectionOrdered By: Willie Dhillon on 07-12-2023 Phencyclidine Ql (U) Negative < 25 ng/mL [facility] Urine sediment bacteria coun t by microscopy (number/high power field)Ordered By: Willie Dhillon on 07-12-2023 Bacteria LM.HPF (Urine sed) [#/Area] 2 /[HPF] None Seen [facility] Urine specific gravity measu rementOrdered By: Willie Dhillon on 07-12-2023 Specific gravity (U) [Rel density] 1.010 1.002-1.030 [facility] Urobilinogen Auto test strip Ql (U)Ordered By: Willie Dhillon on 07-12-2023 Urobilinogen Ql (U) 1 mg/dl Normal [facility] Absolute lymphocyte countOrd ered By: Alex Christiansen on 06-30-2023 Lymphocytes Auto (Unsp spec) [#/Vol] 2.97 10*3/uL 0.83-4.51 [facility] Basophil percentageOrdered B y: Alex Christiansen on 06-30-2023 Basophil percentage 201 mg/dL 74-106 [facility] Basophil percentage 8.0 g/dL 6.4-8.2 [facility] Basophil percentage 0.50 mg/dL 0.20-1.00 [facility] Basophil percentage 137 mmol/L 136-145 [facility] Basophil percentage 3.3 mmol/L 3.5-5.1 [facility] Basophil percentage 103 mmol/L 98-107 [facility] Basophils (Bld) [#/Vol] 9.9 10*3/uL 4.4-11.0 [facility] Basophils (Bld) [#/Vol] 6.2 10*3/uL 2.0-7.7 [facility] Basophils/100 WBC (Bld) 62.9 % 47-[address] [facility] Basophils/100 WBC (Bld) 0.1 % 0-[address] [facility] Basophils/100 WBC (Bld) 0.5 % 0-1 [facility] Blood erythrocytes count (nu mber/volume)Ordered By: Alex Christiansen on 06-30-2023 RBC (Bld) [#/Vol] 4.56 10*6/uL 4.2-5.4 [facility] Blood hemoglobin measurement (mass/volume)Ordered By: Alex Christiansen on 06-30-2023 Hemoglobin (Bld) [Mass/Vol] 12.2 g/dL 12.0-15.0 [facility] Blood lymphocytes/100 leukoc ytesOrdered By: Alex Christiansen on 06-30-2023 Lymphocytes/100 WBC (Bld) 30.0 % 19-41 [facility] Blood monocytes/100 leukocyt esOrdered By: Alex Christiansen on 06-30-2023 Monocytes/100 WBC (Bld) 6.1 % 0-10 [facility] Blood platelet mean volumeOr dered By: Alex Christiansen on 06-30-2023 Platelet mean volume (Bld) [Entitic vol] 9.0 fL 6.2-12.0 [facility] Determination of erythrocyte mean corpuscular volume (MCV)Ordered By: Alex Christiansen on 06-30-2023 MCV (RBC) [Entitic vol] 84.0 fL 81-99 [facility] Hematocrit Auto (Bld) [Volum e fraction]Ordered By: Alex Christiansen on 06-30-2023 Hematocrit (Bld) [Volume fraction] 38.3 % 37-47 [facility] MCHC Auto (RBC) [Mass/Vol]Or dered By: Alex Christiansen on 06-30-2023 MCHC (RBC) [Mass/Vol] 31.9 g/dL 32-36 [facility] No Panel InformationOrdered By: Alex Christiansen on 06-30-2023 26.8 pg 27.0-32.0 [facility] 13.6 % 11.6-14.6 [facility] 41.9 fl 35.1-43.9 [facility] 0.400 % 0.0-0.9 [facility] 0 % 0-5 [facility] 81 mL/min >60 [facility] 98 mL/min >60 [facility] 88.73 ml/min [facility] 10.4 RATIO 10-20 [facility] 4.6 g/dL 2.2-4.2 [facility] 22 U/L 13-75 [facility] 114 U/L 45-117 [facility] 11 U/L 13-56 [facility] 26.0 mmol/L 21.0-32.0 [facility] Platelets bldOrdered By: Milton Christiansen on 06-30-2023 Platelets (Bld) [#/Vol] 437 10*3/uL 150-450 [facility] Serum or plasma albumin hussein urement (mass/volume)Ordered By: Alex Christiansen on 06-30-2023 Albumin [Mass/Vol] 3.4 g/dL 3.2-5.0 [facility] Serum or plasma albumin/glob ulin mass ratioOrdered By: Alex Christiansen on 06-30-2023 Albumin/Globulin [Mass ratio] 0.7 {ratio} 0.9-2.4 [facility] Serum or plasma calcium hussein urement (mass/volume)Ordered By: Alex Christiansen on 06-30-2023 Calcium [Mass/Vol] 9.4 mg/dL 8.5-10.1 [facility] Serum or plasma creatinine m easurement (mass/volume)Ordered By: Alex Christiansen on 06-30-2023 Creatinine [Mass/Vol] 0.86 mg/dL 0.55-1.02 [facility] Serum or plasma urea nitroge n measurement (mass/volume)Ordered By: Alex Christiansen on 06-30-2023 Urea nitrogen [Mass/Vol] 9 mg/dL 7-18 [facility] Thin prep Papanicolaou smear with manual screeningOrdered By: Alex Christiansen on 06-30-2023 Thin prep Papanicolaou smear with manual screening 7 U/L 15-37 [facility] Thin prep Papanicolaou smear with manual screening 8 5-15 [facility] Absolute lymphocyte countOrd ered By: Drew Hinson on 06-28-2023 Lymphocytes Auto (Unsp spec) [#/Vol] 2.31 10*3/uL 0.83-4.51 [facility] Basophil percentageOrdered B y: Drew Hinson on 06-28-2023 Basophil percentage 0-5 SEEN /hpf 0-5 [facility] Basophil percentage 221 mg/dL 74-106 [facility] Basophil percentage 9.3 g/dL 6.4-8.2 [facility] Basophil percentage 0.60 mg/dL 0.20-1.00 [facility] Basophil percentage 136 mmol/L 136-145 [facility] Basophil percentage 3.2 mmol/L 3.5-5.1 [facility] Basophil percentage 102 mmol/L 98-107 [facility] Basophils (Bld) [#/Vol] 9.2 10*3/uL 4.4-11.0 [facility] Basophils (Bld) [#/Vol] 6.4 10*3/uL 2.0-7.7 [facility] Basophils/100 WBC (Bld) 0.5 % 0-[address] [facility] Basophils/100 WBC (Bld) 69.1 % 47-[address] [facility] Basophils/100 WBC (Bld) 0.1 % 0-5 [facility] Bilirubin [Mass/Vol] 0.60 mg/dL 0.20-1.00 [facility] Comment on above: For patients on eltr ombopag therapy, use of Dimension [place] TBIL is not recommended. Chloride [Moles/Vol] 102 mmol/L 98-107 [facility] Eosinophils/100 WBC (Bld) 0.1 % 0-5 [facility] Glucose [Mass/Vol] 221 mg/dL 74-106 [facility] Comment on above: Glucose result great er than or equal to 200 mg/dLsuggests DIABETES MELLITUS per A.D.A. criteria. Neutrophils (Bld) [#/Vol] 6.4 10*3/uL 2.0-7.7 [facility] Neutrophils/100 WBC (Bld) 69.1 % 47-70 [facility] Potassium [Moles/Vol] 3.2 mmol/L 3.5-5.1 [facility] Protein [Mass/Vol] 9.3 g/dL 6.4-8.2 [facility] Sodium [Moles/Vol] 136 mmol/L 136-145 [facility] WBC (Bld) [#/Vol] 9.2 10*3/uL 4.4-11.0 [facility] Bilirubin Test strip Ql (U)O rdered By: Drew Hinson on 06-28-2023 Bilirubin Ql (U) 1 mg/dL Negative [facility] Comment on above: COLOR OF URINE MAY A FFECT DIPSTICK RESULTS. Blood erythrocytes count (nu mber/volume)Ordered By: Drew Hinson on 06-28-2023 RBC (Bld) [#/Vol] 4.85 10*6/uL 4.2-5.4 [facility] Blood hemoglobin measurement (mass/volume)Ordered By: Drew Hinson on 06-28-2023 Hemoglobin (Bld) [Mass/Vol] 13.0 g/dL 12.0-15.0 [facility] Blood lymphocytes/100 leukoc ytesOrdered By: Drew Hinson on 06-28-2023 Lymphocytes/100 WBC (Bld) 25.1 % 19-41 [facility] Blood monocytes/100 leukocyt esOrdered By: Drew Hinson on 06-28-2023 Monocytes/100 WBC (Bld) 4.8 % 0-[address] [facility] Blood platelet mean volumeOr dered By: Drew Hinson on 06-28-2023 Platelet mean volume (Bld) [Entitic vol] 8.9 fL 6.2-12.0 [facility] Determination of erythrocyte mean corpuscular volume (MCV)Ordered By: Drew Hinson on 06-28-2023 MCV (RBC) [Entitic vol] 83.7 fL 81-[address] [facility] Hematocrit Auto (Bld) [Volum e fraction]Ordered By: Drew Hinson on 06-28-2023 Hematocrit (Bld) [Volume fraction] 40.6 % 37-47 [facility] Ketones Test strip Ql (U)Ord ered By: Drew Hinson on 06-28-2023 Ketones Ql (U) 50 mg/dl Negative [facility] Laboratory - Chemistry and C hemistry - challengeOrdered By: Drew Hinson on 06-28-2023 ALP [Catalytic activity/Vol] 128 U/L 45-117 [facility] ALT [Catalytic activity/Vol] 13 U/L 13-56 [facility] CO2 [Moles/Vol] 25.0 mmol/L 21.0-32.0 [facility] Globulin (S) [Mass/Vol] 5.4 g/dL 2.2-4.[address] [facility] Lipase [Catalytic activity/Vol] 28 U/L 13-75 [facility] Comment on above: Please note:LIPASE r evised reference range effective 22. New Lipase methodology. Expected to produce lower values than the previous assay method. NEW Reference Range: 13 - 75 U/L Urea nitrogen/Creatinine [Mass ratio] 11.7 mg/mg 10-20 [facility] Laboratory - Hematology and Cell countsOrdered By: Drew Hinson on 06-28-2023 Erythrocyte distribution width (RBC) [Entitic vol] 41.7 fL 35.1-43.9 [facility] Erythrocyte distribution width (RBC) [Ratio] 13.6 % 11.6-14.6 [facility] Immature granulocytes/100 WBC (Bld) 0.400 % 0.0-0.9 [facility] Comment on above: IG% - Immature Granu locytes (promyelocytes, myelocytes and metamyelocytes) > 1% indicates that a LEFT SHIFT is Present. MCH (RBC) [Entitic mass] 26.8 pg 27.0-32.0 [facility] Nucleated RBC/100 WBC (Bld) [Ratio] 0 % 0-5 [facility] MCHC Auto (RBC) [Mass/Vol]Or dered By: Drew Hinson on 06-28-2023 MCHC (RBC) [Mass/Vol] 32.0 g/dL 32-36 [facility] Mucus LM Ql (Urine sed)Order ed By: Drew Hinson on 06-28-2023 Mucus Ql (Urine sed) 1+ /hpf [facility] Nitrite Test strip Ql (U)Ord ered By: Drew Hinson on 06-28-2023 Nitrite Ql (U) Negative Negative [facility] No Panel InformationOrdered By: Drew Hinson on 06-28-2023 Estimated Creatinine Clearance Calc 81.18 ml/min [facility] Estimated GFR (MDRD) Amer 89 mL/min >60 [facility] Comment on above: GFR Calc Estimated GFR (MDRD) Non-Af Amer 74 mL/min >60 [facility] Comment on above: Non- GFR Calc 26.8 pg 27.0-32.0 [facility] 13.6 % 11.6-14.6 [facility] 41.7 fl 35.1-43.9 [facility] 0.400 % 0.0-0.9 [facility] 0 % 0-5 [facility] 74 mL/min >60 [facility] 89 mL/min >60 [facility] 81.18 ml/min [facility] 11.7 RATIO 10-20 [facility] 5.4 g/dL 2.2-4.2 [facility] 28 U/L 13-75 [facility] 128 U/L 45-117 [facility] 13 U/L 13-56 [facility] 25.0 mmol/L 21.0-32.0 [facility] Platelets bldOrdered By: Dwight Hinson on 06-28-2023 Platelets (Bld) [#/Vol] 491 10*3/uL 150-450 [facility] Protein Test strip Ql (U)Ord ered By: Drew Hinson on 06-28-2023 Protein Ql (U) 30 mg/dl Negative [facility] Serum or plasma albumin hussein urement (mass/volume)Ordered By: Drew Hinson on 06-28-2023 Albumin [Mass/Vol] 3.9 g/dL 3.2-5.0 [facility] Serum or plasma albumin/glob ulin mass ratioOrdered By: Drew Hinson on 06-28-2023 Albumin/Globulin [Mass ratio] 0.7 {ratio} 0.9-2.4 [facility] Serum or plasma calcium hussein urement (mass/volume)Ordered By: Drew Hinson on 06-28-2023 Calcium [Mass/Vol] 9.6 mg/dL 8.5-10.1 [facility] Serum or plasma creatinine m easurement (mass/volume)Ordered By: Drew Hinson on 06-28-2023 Creatinine [Mass/Vol] 0.94 mg/dL 0.55-1.02 [facility] Comment on above: The validity of the calculated GFR & GFRAA in patients over 70 years has not been determined. Clinical correlation is essential. Serum or plasma urea nitroge n measurement (mass/volume)Ordered By: Drew Hinson on 06-28-2023 Urea nitrogen [Mass/Vol] 11 mg/dL 7-18 [facility] Squamous epithelial cells de tection in urine sediment by light microscopyOrdered By: Drew Hinson on 06-28-2023 Epithelial cells.squamous LM Ql (Urine sed) 5-10 SEEN /hpf 5-10 [facility] Thin prep Papanicolaou smear with manual screeningOrdered By: Drew Hinson on 06-28-2023 Thin prep Papanicolaou smear with manual screening 11 U/L 15-37 [facility] Thin prep Papanicolaou smear with manual screening 9 5-15 [facility] Urine blood detectionOrdered By: Drew Hinson on 06-28-2023 RBC Ql (U) 25 /ul Negative [facility] RBC Ql (U) 0-5 SEEN /hpf 0-5 [facility] Urine clarityOrdered By: Dwight Hinson on 06-28-2023 Clarity (U) Cloudy Clear [facility] Urine color determinationOrd ered By: Drew Hinson on 06-28-2023 Color (U) Yellow Yellow [facility] Urine glucose detectionOrder ed By: Drew Hinson on 06-28-2023 Glucose Ql (U) 50 mg/dl Normal [facility] Urine leukocyte esterase det ection by dipstickOrdered By: Drew Hinson on 06-28-2023 Leukocyte esterase Test strip Ql (U) 25 /ul Negative [facility] Urine pHOrdered By: Drew castellanos on 06-28-2023 pH (U) 6.0 [pH] 5.0 - 8.0 [facility] Urine sediment bacteria coun t by microscopy (number/high power field)Ordered By: Drew Hinson on 06-28-2023 Bacteria LM.HPF (Urine sed) [#/Area] 2 /[HPF] None Seen [facility] Urine specific gravity measu rementOrdered By: Drew Hinson on 06-28-2023 Specific gravity (U) [Rel density] 1.020 1.002-1.030 [facility] Urobilinogen Auto test strip Ql (U)Ordered By: Drew Hinson on 06-28-2023 Urobilinogen Ql (U) 1 mg/dl Normal [facility] Absolute lymphocyte countOrd ered By: Taiwo Chen on 06-26-2023 Lymphocytes Auto (Unsp spec) [#/Vol] 2.63 10*3/uL 0.83-4.51 [facility] Basophil percentageOrdered B y: Taiwo Chen on 06-26-2023 Basophil percentage 228 mg/dL 74-106 [facility] Basophil percentage 8.4 g/dL 6.4-8.2 [facility] Basophil percentage 0.30 mg/dL 0.20-1.00 [facility] Basophil percentage 136 mmol/L 136-145 [facility] Basophil percentage 3.8 mmol/L 3.5-5.1 [facility] Basophil percentage 102 mmol/L 98-107 [facility] Basophils (Bld) [#/Vol] 8.6 10*3/uL 4.4-11.0 [facility] Basophils (Bld) [#/Vol] 5.5 10*3/uL 2.0-7.7 [facility] Basophils/100 WBC (Bld) 0.6 % 0-[address] [facility] Basophils/100 WBC (Bld) 63.6 % 47-70 [facility] Basophils/100 WBC (Bld) 0.2 % 0-5 [facility] Bilirubin [Mass/Vol] 0.30 mg/dL 0.20-1.00 [facility] Comment on above: For patients on eltr ombopag therapy, use of Dimension [place] TBIL is not recommended. Chloride [Moles/Vol] 102 mmol/L 98-107 [facility] Eosinophils/100 WBC (Bld) 0.2 % 0-5 [facility] Glucose [Mass/Vol] 228 mg/dL 74-106 [facility] Comment on above: Glucose result great er than or equal to 200 mg/dLsuggests DIABETES MELLITUS per A.D.A. criteria. Neutrophils (Bld) [#/Vol] 5.5 10*3/uL 2.0-7.7 [facility] Neutrophils/100 WBC (Bld) 63.6 % 47-70 [facility] Potassium [Moles/Vol] 3.8 mmol/L 3.5-5.1 [facility] Protein [Mass/Vol] 8.4 g/dL 6.4-8.2 [facility] Sodium [Moles/Vol] 136 mmol/L 136-145 [facility] WBC (Bld) [#/Vol] 8.6 10*3/uL 4.4-11.0 [facility] Blood erythrocytes count (nu mber/volume)Ordered By: Taiwo Chen on 06-26-2023 RBC (Bld) [#/Vol] 4.31 10*6/uL 4.2-5.4 [facility] Blood hemoglobin measurement (mass/volume)Ordered By: Taiwo Chen on 06-26-2023 Hemoglobin (Bld) [Mass/Vol] 11.6 g/dL 12.0-15.0 [facility] Blood lymphocytes/100 leukoc ytesOrdered By: Taiwo Chen on 06-26-2023 Lymphocytes/100 WBC (Bld) 30.6 % 19-41 [facility] Blood monocytes/100 leukocyt esOrdered By: Taiwo Chen on 06-26-2023 Monocytes/100 WBC (Bld) 4.3 % 0-[address] [facility] Blood platelet mean volumeOr dered By: Taiwo Chen on 06-26-2023 Platelet mean volume (Bld) [Entitic vol] 9.3 fL 6.2-12.0 [facility] Determination of erythrocyte mean corpuscular volume (MCV)Ordered By: Taiwo Chen on 06-26-2023 MCV (RBC) [Entitic vol] 84.7 fL 81-[address] [facility] Hematocrit Auto (Bld) [Volum e fraction]Ordered By: Taiwo Chen on 06-26-2023 Hematocrit (Bld) [Volume fraction] 36.5 % 37-47 [facility] Laboratory - Chemistry and C hemistry - challengeOrdered By: Taiwo Chen on 06-26-2023 ALP [Catalytic activity/Vol] 135 U/L 45-117 [facility] ALT [Catalytic activity/Vol] 15 U/L 13-56 [facility] CO2 [Moles/Vol] 26.0 mmol/L 21.0-32.0 [facility] Globulin (S) [Mass/Vol] 5.0 g/dL 2.2-4.[address] [facility] Urea nitrogen/Creatinine [Mass ratio] 11.4 mg/mg 10-20 [facility] Laboratory - Hematology and Cell countsOrdered By: Taiwo Chen on 06-26-2023 Erythrocyte distribution width (RBC) [Entitic vol] 42.7 fL 35.1-43.9 [facility] Erythrocyte distribution width (RBC) [Ratio] 13.7 % 11.6-14.6 [facility] Immature granulocytes/100 WBC (Bld) 0.700 % 0.0-0.9 [facility] Comment on above: IG% - Immature Granu locytes (promyelocytes, myelocytes and metamyelocytes) > 1% indicates that a LEFT SHIFT is Present. MCH (RBC) [Entitic mass] 26.9 pg 27.0-32.0 [facility] Nucleated RBC/100 WBC (Bld) [Ratio] 0 % 0-5 [facility] MCHC Auto (RBC) [Mass/Vol]Or dered By: Taiwo Chen on 06-26-2023 MCHC (RBC) [Mass/Vol] 31.8 g/dL 32-36 [facility] No Panel InformationOrdered By: Taiwo Chen on 06-26-2023 Estimated Creatinine Clearance Calc 86.71 ml/min [facility] Estimated GFR (MDRD) Amer 97 mL/min >60 [facility] Comment on above: GFR Calc Estimated GFR (MDRD) Non-Af Amer 80 mL/min >60 [facility] Comment on above: Non- GFR Calc 26.9 pg 27.0-32.0 [facility] 13.7 % 11.6-14.6 [facility] 42.7 fl 35.1-43.9 [facility] 0.700 % 0.0-0.9 [facility] 0 % 0-5 [facility] 80 mL/min >60 [facility] 97 mL/min >60 [facility] 86.71 ml/min [facility] 11.4 RATIO 10-20 [facility] 5.0 g/dL 2.2-4.2 [facility] 135 U/L 45-117 [facility] 15 U/L 13-56 [facility] 26.0 mmol/L 21.0-32.0 [facility] Platelets bldOrdered By: Liss Chen on 06-26-2023 Platelets (Bld) [#/Vol] 464 10*3/uL 150-450 [facility] Serum or plasma albumin hussein urement (mass/volume)Ordered By: Taiwo Chen on 06-26-2023 Albumin [Mass/Vol] 3.4 g/dL 3.2-5.0 [facility] Serum or plasma albumin/glob ulin mass ratioOrdered By: Taiwo Chen on 06-26-2023 Albumin/Globulin [Mass ratio] 0.7 {ratio} 0.9-2.4 [facility] Serum or plasma calcium hussein urement (mass/volume)Ordered By: Taiwo Chen on 06-26-2023 Calcium [Mass/Vol] 9.5 mg/dL 8.5-10.1 [facility] Serum or plasma creatinine m easurement (mass/volume)Ordered By: Taiwo Chen on 06-26-2023 Creatinine [Mass/Vol] 0.88 mg/dL 0.55-1.02 [facility] Comment on above: The validity of the calculated GFR & GFRAA in patients over 70 years has not been determined. Clinical correlation is essential. Serum or plasma urea nitroge n measurement (mass/volume)Ordered By: Taiwo Chen on 06-26-2023 Urea nitrogen [Mass/Vol] 10 mg/dL 7-18 [facility] Thin prep Papanicolaou smear with manual screeningOrdered By: Taiwo Chen on 06-26-2023 Thin prep Papanicolaou smear with manual screening 8 U/L 15-37 [facility] Thin prep Papanicolaou smear with manual screening 8 5-15 [facility] Absolute lymphocyte countOrd ered By: Tesfaye Mitchell on 06-25-2023 Lymphocytes Auto (Unsp spec) [#/Vol] 2.74 10*3/uL 0.83-4.51 [facility] Basophil percentageOrdered B y: Tesfaye Mitchell on 06-25-2023 Basophil percentage 259 mg/dL 74-106 [facility] Basophil percentage 8.7 g/dL 6.4-8.2 [facility] Basophil percentage 0.40 mg/dL 0.20-1.00 [facility] Basophil percentage 137 mmol/L 136-145 [facility] Basophil percentage 4.0 mmol/L 3.5-5.1 [facility] Basophil percentage 103 mmol/L 98-107 [facility] Basophils (Bld) [#/Vol] 11.7 10*3/uL 4.4-11.0 [facility] Basophils (Bld) [#/Vol] 8.5 10*3/uL 2.0-7.7 [facility] Basophils/100 WBC (Bld) 0.4 % 0-[address] [facility] Basophils/100 WBC (Bld) 72.6 % 47-[address] [facility] Basophils/100 WBC (Bld) 0.0 % 0-5 [facility] Bilirubin [Mass/Vol] 0.40 mg/dL 0.20-1.00 [facility] Comment on above: For patients on eltr ombopag therapy, use of Dimension [place] TBIL is not recommended. Chloride [Moles/Vol] 103 mmol/L 98-107 [facility] Eosinophils/100 WBC (Bld) 0.0 % 0-5 [facility] Glucose [Mass/Vol] 259 mg/dL 74-106 [facility] Comment on above: Glucose result great er than or equal to 200 mg/dLsuggests DIABETES MELLITUS per A.D.A. criteria. Neutrophils (Bld) [#/Vol] 8.5 10*3/uL 2.0-7.7 [facility] Neutrophils/100 WBC (Bld) 72.6 % 47-70 [facility] Potassium [Moles/Vol] 4.0 mmol/L 3.5-5.1 [facility] Protein [Mass/Vol] 8.7 g/dL 6.4-8.2 [facility] Sodium [Moles/Vol] 137 mmol/L 136-145 [facility] WBC (Bld) [#/Vol] 11.7 10*3/uL 4.4-11.0 [facility] Basophil percentage 0-5 SEEN /hpf 0-5 [facility] Bilirubin Test strip Ql (U)O rdered By: Tesfaye Mitchell on 06-25-2023 Bilirubin Ql (U) Negative Negative [facility] Blood erythrocytes count (nu mber/volume)Ordered By: Tesfaye Mitchell on 06-25-2023 RBC (Bld) [#/Vol] 4.53 10*6/uL 4.2-5.4 [facility] Blood hemoglobin measurement (mass/volume)Ordered By: Tesfaye Mitchell on 06-25-2023 Hemoglobin (Bld) [Mass/Vol] 12.0 g/dL 12.0-15.0 [facility] Blood lymphocytes/100 leukoc ytesOrdered By: Tesfaye Mitchell on 06-25-2023 Lymphocytes/100 WBC (Bld) 23.5 % 19-41 [facility] Blood monocytes/100 leukocyt esOrdered By: Tesfaye Mitchell on 06-25-2023 Monocytes/100 WBC (Bld) 2.9 % 0-[address] [facility] Blood platelet mean volumeOr dered By: Tesfaye Mitchell on 06-25-2023 Platelet mean volume (Bld) [Entitic vol] 9.1 fL 6.2-12.0 [facility] Determination of erythrocyte mean corpuscular volume (MCV)Ordered By: Tesfaye Mitchell on 06-25-2023 MCV (RBC) [Entitic vol] 84.3 fL 81-[address] [facility] Hematocrit Auto (Bld) [Volum e fraction]Ordered By: Tesfaye Mitchell on 06-25-2023 Hematocrit (Bld) [Volume fraction] 38.2 % 37-47 [facility] Ketones Test strip Ql (U)Ord ered By: Tesfaye Mitchell on 06-25-2023 Ketones Ql (U) 15 mg/dl Negative [facility] Laboratory - Chemistry and C hemistry - challengeOrdered By: Tesfaye Mitchell on 06-25-2023 ALP [Catalytic activity/Vol] 156 U/L 45-117 [facility] ALT [Catalytic activity/Vol] 15 U/L 13-56 [facility] CO2 [Moles/Vol] 24.0 mmol/L 21.0-32.0 [facility] Globulin (S) [Mass/Vol] 5.4 g/dL 2.2-4.[address] [facility] Lipase [Catalytic activity/Vol] 32 U/L 13-75 [facility] Comment on above: Please note:LIPASE r evised reference range effective 22. New Lipase methodology. Expected to produce lower values than the previous assay method. NEW Reference Range: 13 - 75 U/L Urea nitrogen/Creatinine [Mass ratio] 15.7 mg/mg 10-20 [facility] Laboratory - Drug toxicology Ordered By: Tesfaye Mitchell on 06-25-2023 Amphetamines Ql (U) Negative <1000 ng/mL [facility] Benzodiazepines Ql (U) Negative < 200 ng/mL [facility] Cannabinoids Screen Ql (U) Negative < 50 ng/mL [facility] Cocaine Ql (U) Negative < 300 ng/mL [facility] Opiates Ql (U) Negative < 300 ng/mL [facility] Laboratory - Hematology and Cell countsOrdered By: Tesfaye Mitchell on 06-25-2023 Erythrocyte distribution width (RBC) [Entitic vol] 42.4 fL 35.1-43.9 [facility] Erythrocyte distribution width (RBC) [Ratio] 13.7 % 11.6-14.6 [facility] Immature granulocytes/100 WBC (Bld) 0.600 % 0.0-0.9 [facility] Comment on above: IG% - Immature Granu locytes (promyelocytes, myelocytes and metamyelocytes) > 1% indicates that a LEFT SHIFT is Present. MCH (RBC) [Entitic mass] 26.5 pg 27.0-32.0 [facility] Nucleated RBC/100 WBC (Bld) [Ratio] 0 % 0-5 [facility] MCHC Auto (RBC) [Mass/Vol]Or dered By: Tesfaye Mitchell on 06-25-2023 MCHC (RBC) [Mass/Vol] 31.4 g/dL 32-36 [facility] Mucus LM Ql (Urine sed)Order ed By: Tesfaye Mitchell on 06-25-2023 Mucus Ql (Urine sed) 0 SEEN /hpf [facility] Nitrite Test strip Ql (U)Ord ered By: Tesfaye Mitchell on 06-25-2023 Nitrite Ql (U) Negative Negative [facility] No Panel InformationOrdered By: Tesfaye Mitchell on 06-25-2023 Estimated Creatinine Clearance Calc 91.94 ml/min [facility] Estimated GFR (MDRD) Amer 103 mL/min >60 [facility] Comment on above: GFR Calc Estimated GFR (MDRD) Non-Af Amer 85 mL/min >60 [facility] Comment on above: Non- GFR Calc 26.5 pg 27.0-32.0 [facility] 13.7 % 11.6-14.6 [facility] 42.4 fl 35.1-43.9 [facility] 0.600 % 0.0-0.9 [facility] 0 % 0-5 [facility] 85 mL/min >60 [facility] 103 mL/min >60 [facility] 91.94 ml/min [facility] 15.7 RATIO 10-20 [facility] 5.4 g/dL 2.2-4.2 [facility] 32 U/L 13-75 [facility] 156 U/L 45-117 [facility] 15 U/L 13-56 [facility] 24.0 mmol/L 21.0-32.0 [facility] MDMA (Ecstasy) Screen Positive < 500 ng/mL [facility] Urine Barbiturates Screen Negative < 200 ng/mL [facility] Urine Drug Screen Comment [facility] Comment on above: CONFIRMATORY TESTING FOR ALL [...] Urine Methadone Screen Negative < 300 ng/mL [facility] Negative < 50 ng/mL [facility] Positive < 500 ng/mL [facility] Platelets bldOrdered By: Mauro Mitchell on 06-25-2023 Platelets (Bld) [#/Vol] 497 10*3/uL 150-450 [facility] Protein Test strip Ql (U)Ord ered By: Tesfaye Mitchell on 06-25-2023 Protein Ql (U) 30 mg/dl Negative [facility] Serum or plasma albumin hussein urement (mass/volume)Ordered By: Tesfaye Mitchell on 06-25-2023 Albumin [Mass/Vol] 3.3 g/dL 3.2-5.0 [facility] Serum or plasma albumin/glob ulin mass ratioOrdered By: Tesfaye Mitchell on 06-25-2023 Albumin/Globulin [Mass ratio] 0.6 {ratio} 0.9-2.4 [facility] Serum or plasma calcium hussein urement (mass/volume)Ordered By: Tesfaye Mitchell on 06-25-2023 Calcium [Mass/Vol] 9.6 mg/dL 8.5-10.1 [facility] Serum or plasma creatinine m easurement (mass/volume)Ordered By: Tesfaye Mitchell on 06-25-2023 Creatinine [Mass/Vol] 0.83 mg/dL 0.55-1.02 [facility] Comment on above: The validity of the calculated GFR & GFRAA in patients over 70 years has not been determined. Clinical correlation is essential. Serum or plasma urea nitroge n measurement (mass/volume)Ordered By: Tesfaye Mitchell on 06-25-2023 Urea nitrogen [Mass/Vol] 13 mg/dL 7-18 [facility] Squamous epithelial cells de tection in urine sediment by light microscopyOrdered By: Tesfaye Mitchell on 06-25-2023 Epithelial cells.squamous LM Ql (Urine sed) 5-10 SEEN /hpf 5-10 [facility] Thin prep Papanicolaou smear with manual screeningOrdered By: Tesfaye Mitchell on 06-25-2023 Thin prep Papanicolaou smear with manual screening 14 U/L 15-37 [facility] Thin prep Papanicolaou smear with manual screening 10 5-15 [facility] Urine blood detectionOrdered By: Tesfaye Mitchell on 06-25-2023 RBC Ql (U) 250 /ul Negative [facility] RBC Ql (U) > 100 SEEN /hpf 0-5 [facility] Urine clarityOrdered By: Mauro Mitchell on 06-25-2023 Clarity (U) Sl. Cloudy Clear [facility] Urine color determinationOrd ered By: Tesfaye Mitchell on 06-25-2023 Color (U) Yellow Yellow [facility] Urine glucose detectionOrder ed By: Tesfaye Mitchell on 06-25-2023 Glucose Ql (U) 250 mg/dl Normal [facility] Urine leukocyte esterase det ection by dipstickOrdered By: Tesfaye Mitchell on 06-25-2023 Leukocyte esterase Test strip Ql (U) 25 /ul Negative [facility] Urine pHOrdered By: Tesfaye figueroa on 06-25-2023 pH (U) 7.0 [pH] 5.0 - 8.0 [facility] Urine phencyclidine (PCP) de tectionOrdered By: Tesfaye Mitchell on 06-25-2023 Phencyclidine Ql (U) Negative < 25 ng/mL [facility] Urine sediment bacteria coun t by microscopy (number/high power field)Ordered By: Tesfaye Mitchell on 06-25-2023 Bacteria LM.HPF (Urine sed) [#/Area] 0 /[HPF] None Seen [facility] Urine specific gravity measu rementOrdered By: Tesfaye Mitchell on 06-25-2023 Specific gravity (U) [Rel density] 1.010 1.002-1.030 [facility] Urobilinogen Auto test strip Ql (U)Ordered By: Tesfaye Mitchell on 06-25-2023 Urobilinogen Ql (U) Normal mg/dl Normal [facility] Anaerobic cultureOrdered By: Abdirizak Forrest on 05-18-2023 Bacteria identified Anaer cx Nom (Unsp spec) No anaerobic bacteria isolated. [facility] Bacteria identified Cx Nom ( Wound)Ordered By: Abdirizak Forrest on 05-18-2023 Wound Culture Meth. resistant Stap h. aureus [facility] Routine wound culture Meth. resistant St aph. aureus [facility] Fungus cultureOrdered By: Neva Forrest on 05-18-2023 Fungus identified Cx Nom (Unsp spec) [facility] Gram stain for investigation of transfusion reactionOrdered By: Abdirizak oFrrest on 05-18-2023 Microscopic observation Gram stain Nom (Unsp spec) [facility] Glucose Glucometer (BldC) [M ass/Vol]Ordered By: Rickey Gifford on 05-09-2023 Glucose [Mass/Vol] 157 mg/dL 74-106 [facility] Comment on above: MANAGEMENT OF PATIEN T CARE PER NURSING PROTOCOL Basophil percentageOrdered B y: Rickey Gifford on 05-07-2023 Basophil percentage 161 mg/dL 74-106 [facility] Basophil percentage 138 mmol/L 136-145 [facility] Basophil percentage 4.0 mmol/L 3.5-5.1 [facility] Basophil percentage 108 mmol/L 98-107 [facility] Chloride [Moles/Vol] 108 mmol/L 98-107 [facility] Glucose [Mass/Vol] 161 mg/dL 74-106 [facility] Comment on above: Fasting Glucose resu lt greater than or equal to 126 mg/dL suggests DIABETES MELLITUS per A.D.A. criteria. Potassium [Moles/Vol] 4.0 mmol/L 3.5-5.1 [facility] Sodium [Moles/Vol] 138 mmol/L 136-145 [facility] Laboratory - Chemistry and C hemistry - challengeOrdered By: Rickey Gifford on 05-07-2023 CO2 [Moles/Vol] 26.0 mmol/L 21.0-32.0 [facility] Urea nitrogen/Creatinine [Mass ratio] 17.1 mg/mg 04-30 [facility] No Panel InformationOrdered By: Rickey Gifford on 05-07-2023 Estimated Creatinine Clearance Calc 131.56 ml/min [facility] Estimated GFR (MDRD) Amer 154 mL/min >60 [facility] Comment on above: GFR Calc Estimated GFR (MDRD) Non-Af Amer 127 mL/min >60 [facility] Comment on above: Non- GFR Calc 127 mL/min >60 [facility] 154 mL/min >60 [facility] 131.56 ml/min [facility] 17.1 RATIO - [facility] 26.0 mmol/L 21.0-32.0 [facility] Serum or plasma calcium hussein urement (mass/volume)Ordered By: Rickey Gifford on 05-07-2023 Calcium [Mass/Vol] 8.4 mg/dL 8.5-10.1 [facility] Serum or plasma creatinine m easurement (mass/volume)Ordered By: Rickey Gifford on 05-07-2023 Creatinine [Mass/Vol] 0.58 mg/dL 0.55-1.02 [facility] Comment on above: The validity of the calculated GFR & GFRAA in patients over 70 years has not been determined. Clinical correlation is essential. Serum or plasma urea nitroge n measurement (mass/volume)Ordered By: Rickey Gifford on 05-07-2023 Urea nitrogen [Mass/Vol] 10 mg/dL 7-18 [facility] Thin prep Papanicolaou smear with manual screeningOrdered By: Rickey Gifford on 05-07-2023 Thin prep Papanicolaou smear with manual screening 4 5-15 [facility] Absolute lymphocyte countOrd ered By: Rickey Gifford on 05-06-2023 Lymphocytes Auto (Unsp spec) [#/Vol] 2.89 10*3/uL 0.83-4.51 [facility] Basophil percentageOrdered B y: Rickey Gifford on 05-06-2023 Basophils (Bld) [#/Vol] 5.8 10*3/uL 4.4-11.0 [facility] Basophils (Bld) [#/Vol] 2.4 10*3/uL 2.0-7.7 [facility] Basophils/100 WBC (Bld) 40.5 % 47-[address] [facility] Basophils/100 WBC (Bld) 0.3 % 0-[address] [facility] Basophils/100 WBC (Bld) 0.5 % 0-[address] [facility] Eosinophils/100 WBC (Bld) 0.3 % 0-5 [facility] Neutrophils (Bld) [#/Vol] 2.4 10*3/uL 2.0-7.7 [facility] Neutrophils/100 WBC (Bld) 40.5 % 47-70 [facility] WBC (Bld) [#/Vol] 5.8 10*3/uL 4.4-11.0 [facility] Blood erythrocytes count (nu mber/volume)Ordered By: Rickey Gifford on 05-06-2023 RBC (Bld) [#/Vol] 3.54 10*6/uL 4.2-5.4 [facility] Blood hemoglobin measurement (mass/volume)Ordered By: Rickey Gifford on 05-06-2023 Hemoglobin (Bld) [Mass/Vol] 10.1 g/dL 12.0-15.0 [facility] Blood lymphocytes/100 leukoc ytesOrdered By: Rickey Gifford on 05-06-2023 Lymphocytes/100 WBC (Bld) 49.6 % 19-41 [facility] Blood monocytes/100 leukocyt esOrdered By: Rickey Gifford on 05-06-2023 Monocytes/100 WBC (Bld) 8.4 % 0-[address] [facility] Blood platelet mean volumeOr dered By: Rickey Gifford on 05-06-2023 Platelet mean volume (Bld) [Entitic vol] 9.4 fL 6.2-12.0 [facility] Determination of erythrocyte mean corpuscular volume (MCV)Ordered By: Rickey Gifford on 05-06-2023 MCV (RBC) [Entitic vol] 92.7 fL 81-[address] [facility] Hematocrit Auto (Bld) [Volum e fraction]Ordered By: Rickey Gifford on 05-06-2023 Hematocrit (Bld) [Volume fraction] 32.8 % 37-47 [facility] Laboratory - Hematology and Cell countsOrdered By: Rickey Gifford on 05-06-2023 Erythrocyte distribution width (RBC) [Entitic vol] 54.6 fL 35.1-43.9 [facility] Erythrocyte distribution width (RBC) [Ratio] 15.9 % 11.6-14.6 [facility] Immature granulocytes/100 WBC (Bld) 0.700 % 0.0-0.9 [facility] Comment on above: IG% - Immature Granu locytes (promyelocytes, myelocytes and metamyelocytes) > 1% indicates that a LEFT SHIFT is Present. MCH (RBC) [Entitic mass] 28.5 pg 27.0-32.0 [facility] Nucleated RBC/100 WBC (Bld) [Ratio] 0 % 0-5 [facility] MCHC Auto (RBC) [Mass/Vol]Or dered By: Rickey Gifford on 05-06-2023 MCHC (RBC) [Mass/Vol] 30.8 g/dL 32-36 [facility] No Panel InformationOrdered By: Rickey Gifford on 05-06-2023 28.5 pg 27.0-32.0 [facility] 15.9 % 11.6-14.6 [facility] 54.6 fl 35.1-43.9 [facility] 0.700 % 0.0-0.9 [facility] 0 % 0-5 [facility] Platelets bldOrdered By: Ivy Gifford on 05-06-2023 Platelets (Bld) [#/Vol] 317 10*3/uL 150-450 [facility] Serum or plasma trough vanco mycin levelOrdered By: Rickey Gifford on 05-05-2023 Vancomycin trough [Mass/Vol] 15.1 ug/mL 5.0-15.0 [facility] Comment on above: VANCOMYCIN STANDARED DRUG THERAPY TROUGH LEVEL: 5.0 - 15.0 mg/L VANCOMYCIN HIGH INTENSITY THERAPY TROUGH LEVEL: 15.0 - 20.0 mg/L High Intensity therapy recommended for serious lifethreatening infections include:- Afvgldamno-Dfoefldxinlr-Hcbyqacal (Ventilator/Healtcare Associated)-Sepsis PLEASE CONTACT PHARMACY SERVICES (#[id number]) FOR INTERPRETATIONOF RESULTS. Absolute lymphocyte countOrd ered By: Javy Doss on 05-04-2023 Lymphocytes Auto (Unsp spec) [#/Vol] 1.65 10*3/uL 0.83-4.51 [facility] Bacteria identified Anaer cx Nom (Unsp spec)Ordered By: Abdirizak Forrest on 05-04-2023 Anaerobic Culture Bacteroides fragilis [facility] Bacteria identified Cx Nom ( Wound)Ordered By: Abdirizak Forrest on 05-04-2023 Wound Culture Streptococcus dysgalactiae dys [facility] Routine wound culture Streptococcus dysgalactiae dys [facility] Basophil percentageOrdered B y: Javy Doss on 05-04-2023 Basophil percentage 207 mg/dL 74-106 [facility] Basophil percentage 133 mmol/L 136-145 [facility] Basophil percentage 3.8 mmol/L 3.5-5.1 [facility] Basophil percentage 102 mmol/L 98-107 [facility] Basophil percentage 1.9 mmol/L 0.4-2.0 [facility] Basophils (Bld) [#/Vol] 11.1 10*3/uL 4.4-11.0 [facility] Basophils (Bld) [#/Vol] 8.1 10*3/uL 2.0-7.7 [facility] Basophils/100 WBC (Bld) 73.2 % 47-[address] [facility] Basophils/100 WBC (Bld) 0.0 % 0-[address] [facility] Basophils/100 WBC (Bld) 0.4 % 0-[address] [facility] Lactate [Moles/Vol] 1.9 mmol/L 0.4-2.0 [facility] Blood erythrocytes count (nu mber/volume)Ordered By: Javy Doss on 05-04-2023 RBC (Bld) [#/Vol] 3.68 10*6/uL 4.2-5.4 [facility] Blood hemoglobin measurement (mass/volume)Ordered By: Javy Doss on 05-04-2023 Hemoglobin (Bld) [Mass/Vol] 10.5 g/dL 12.0-15.0 [facility] Blood lymphocytes/100 leukoc ytesOrdered By: Javy Doss on 05-04-2023 Lymphocytes/100 WBC (Bld) 14.9 % 19-41 [facility] Blood monocytes/100 leukocyt esOrdered By: Javy Doss on 05-04-2023 Monocytes/100 WBC (Bld) 10.2 % 0-[address] [facility] Blood platelet mean volumeOr dered By: Javy Doss on 05-04-2023 Platelet mean volume (Bld) [Entitic vol] 9.2 fL 6.2-12.0 [facility] Determination of erythrocyte mean corpuscular volume (MCV)Ordered By: Javy Doss on 05-04-2023 MCV (RBC) [Entitic vol] 89.1 fL 81-[address] [facility] Erythrocyte sedimentation ra teOrdered By: Abdirizak Forrest on 05-04-2023 ESR (Bld) [Velocity] 88 mm/h 0-30 [facility] Fungus cultureOrdered By: Neva Forrest on 05-04-2023 Fungus identified Cx Nom (Unsp spec) [facility] Fungus stainOrdered By: Jonas Forrest on 05-04-2023 Fungus identified Fungus stain Nom (Unsp spec) [facility] Gram stain for investigation of transfusion reactionOrdered By: Abdirizak Forrest on 05-04-2023 Microscopic observation Gram stain Nom (Unsp spec) [facility] Microscopic observation Gram stain Nom (Unsp spec) [facility] Hematocrit Auto (Bld) [Volum e fraction]Ordered By: Javy Doss on 05-04-2023 Hematocrit (Bld) [Volume fraction] 32.8 % 37-47 [facility] Laboratory - Chemistry and C hemistry - challengeOrdered By: Ronald Hilario on 05-04-2023 HCG ( test) Ql (U) Negative [facility] Comment on above: Very dilute urine sp ecimens, as indicated by a low specificgravity, may not contain retail field representative levels of hCG. If is still suspected, a first morning urinespecimen should be collected 48 hours later and tested. Laboratory - Microbiology an d Antimicrobial susceptibilityOrdered By: Javy Doss on 05-04-2023 Bacteria identified Cx Nom (Bld) No growth in 5 days. [facility] MCHC Auto (RBC) [Mass/Vol]Or dered By: Javy Doss on 05-04-2023 MCHC (RBC) [Mass/Vol] 32.0 g/dL 32-36 [facility] No Panel InformationOrdered By: Ronald Hilario on 05-04-2023 Negative [facility] No Panel InformationOrdered By: Javy Doss on 05-04-2023 No growth in 5 days. [facility] 28.5 pg 27.0-32.0 [facility] 15.9 % 11.6-14.6 [facility] 52.3 fl 35.1-43.9 [facility] 1.300 % 0.0-0.9 [facility] 0 % 0-5 [facility] 100 mL/min >60 [facility] 121 mL/min >60 [facility] 105.98 ml/min [facility] 12.5 RATIO 10-20 [facility] 27.0 mmol/L 21.0-32.0 [facility] Platelets bldOrdered By: Haylee Doss on 05-04-2023 Platelets (Bld) [#/Vol] 333 10*3/uL 150-450 [facility] Serum or plasma C reactive p rotein measurement (mass/volume)Ordered By: Abdirizak Forrest on 05-04-2023 CRP [Mass/Vol] 117.00 mg/L 0.0-3.0 [facility] Comment on above: C-Reactive Protein ( CRP) provides useful information for thediagnosis, therapy and monitoring of inflammatory processesand associated diseases. For the evaluation of Relative Riskfor Cardiovascular Disease, a High Sensitivity CRP (HSCRP)should be ordered. Serum or plasma calcium hussein urement (mass/volume)Ordered By: Javy Doss on 05-04-2023 Calcium [Mass/Vol] 8.7 mg/dL 8.5-10.1 [facility] Serum or plasma creatinine m easurement (mass/volume)Ordered By: Javy Doss on 05-04-2023 Creatinine [Mass/Vol] 0.72 mg/dL 0.55-1.02 [facility] Serum or plasma urea nitroge n measurement (mass/volume)Ordered By: Javy Doss on 05-04-2023 Urea nitrogen [Mass/Vol] 9 mg/dL -18 [facility] Thin prep Papanicolaou smear with manual screeningOrdered By: Javy Doss on 05-04-2023 Thin prep Papanicolaou smear with manual screening 4 5-15 [facility] Whole blood hemoglobin A1c/t otal hemoglobin ratio (mass fraction)Ordered By: Abdirizak Forrest on 05-04-2023 HbA1c (Bld) [Mass fraction] 7.2 % 3.8-5.6 [facility] Comment on above: Normal < 5.7 % Predi abetic 5.7 - 6.4 % Diabetic >or= 6.5 % Please note range changes. Absolute lymphocyte countOrd ered By: Deann Guerrero on 04-14-2023 Lymphocytes Auto (Unsp spec) [#/Vol] 3.05 10*3/uL 0.83-4.51 [facility] Basophil percentageOrdered B y: Deann Guerrero on 04-14-2023 Basophil percentage 179 mg/dL 74-106 [facility] Basophil percentage 8.2 g/dL 6.4-8.2 [facility] Basophil percentage 0.60 mg/dL 0.20-1.00 [facility] Basophil percentage 135 mmol/L 136-145 [facility] Basophil percentage 3.6 mmol/L 3.5-5.1 [facility] Basophil percentage 103 mmol/L 98-107 [facility] Basophils (Bld) [#/Vol] 7.8 10*3/uL 4.4-11.0 [facility] Basophils (Bld) [#/Vol] 4.1 10*3/uL 2.0-7.7 [facility] Basophils/100 WBC (Bld) 52.8 % 47-[address] [facility] Basophils/100 WBC (Bld) 0.3 % 0-[address] [facility] Basophils/100 WBC (Bld) 0.5 % 0-1 [facility] Bilirubin [Mass/Vol] 0.60 mg/dL 0.20-1.00 [facility] Comment on above: For patients on eltr ombopag therapy, use of Dimension [place] TBIL is not recommended. Chloride [Moles/Vol] 103 mmol/L 98-107 [facility] Eosinophils/100 WBC (Bld) 0.3 % 0-5 [facility] Glucose [Mass/Vol] 179 mg/dL 74-106 [facility] Comment on above: Fasting Glucose resu lt greater than or equal to 126 mg/dL suggests DIABETES MELLITUS per A.D.A. criteria. Neutrophils (Bld) [#/Vol] 4.1 10*3/uL 2.0-7.7 [facility] Neutrophils/100 WBC (Bld) 52.8 % 47-70 [facility] Potassium [Moles/Vol] 3.6 mmol/L 3.5-5.1 [facility] Protein [Mass/Vol] 8.2 g/dL 6.4-8.2 [facility] Sodium [Moles/Vol] 135 mmol/L 136-145 [facility] WBC (Bld) [#/Vol] 7.8 10*3/uL 4.4-11.0 [facility] Blood erythrocytes count (nu mber/volume)Ordered By: Deann Guerrero on 04-14-2023 RBC (Bld) [#/Vol] 4.57 10*6/uL 4.2-5.4 [facility] Blood hemoglobin measurement (mass/volume)Ordered By: Deann Guerrero on 04-14-2023 Hemoglobin (Bld) [Mass/Vol] 12.8 g/dL 12.0-15.0 [facility] Blood lymphocytes/100 leukoc ytesOrdered By: Deann Guerrero on 04-14-2023 Lymphocytes/100 WBC (Bld) 39.3 % 19-41 [facility] Blood monocytes/100 leukocyt esOrdered By: Deann Guerrero on 04-14-2023 Monocytes/100 WBC (Bld) 6.1 % 0-10 [facility] Blood platelet mean volumeOr dered By: Deann Guerrero on 04-14-2023 Platelet mean volume (Bld) [Entitic vol] 8.3 fL 6.2-12.0 [facility] Determination of erythrocyte mean corpuscular volume (MCV)Ordered By: Deann Guerrero on 04-14-2023 MCV (RBC) [Entitic vol] 87.7 fL 81-99 [facility] Direct bilirubinOrdered By: Deann Guerrero on 04-14-2023 Bilirubin.direct [Mass/Vol] 0.16 mg/dL 0.00-0.30 [facility] Hematocrit Auto (Bld) [Volum e fraction]Ordered By: Deann Guerrero on 04-14-2023 Hematocrit (Bld) [Volume fraction] 40.1 % 37-47 [facility] Laboratory - Chemistry and C hemistry - challengeOrdered By: Deann Guerrero on 04-14-2023 ALP [Catalytic activity/Vol] 111 U/L 45-117 [facility] ALT [Catalytic activity/Vol] 23 U/L 13-56 [facility] CO2 [Moles/Vol] 25.0 mmol/L 21.0-32.0 [facility] Globulin (S) [Mass/Vol] 5.0 g/dL 2.2-4.2 [facility] Lipase [Catalytic activity/Vol] 80 U/L 13-75 [facility] Comment on above: Please note:LIPASE r evised reference range effective 22. New Lipase methodology. Expected to produce lower values than the previous assay method. NEW Reference Range: 13 - 75 U/L Urea nitrogen/Creatinine [Mass ratio] 9.6 mg/mg 10-20 [facility] Laboratory - Hematology and Cell countsOrdered By: Deann Guerrero on 04-14-2023 Erythrocyte distribution width (RBC) [Entitic vol] 48.6 fL 35.1-43.9 [facility] Erythrocyte distribution width (RBC) [Ratio] 16.4 % 11.6-14.6 [facility] Immature granulocytes/100 WBC (Bld) 1.000 % 0.0-0.9 [facility] Comment on above: IG% - Immature Granu locytes (promyelocytes, myelocytes and metamyelocytes) > 1% indicates that a LEFT SHIFT is Present. MCH (RBC) [Entitic mass] 28.0 pg 27.0-32.0 [facility] Nucleated RBC/100 WBC (Bld) [Ratio] 0 % 0-5 [facility] MCHC Auto (RBC) [Mass/Vol]Or dered By: Deann Guerrero on 04-14-2023 MCHC (RBC) [Mass/Vol] 31.9 g/dL 32-36 [facility] No Panel InformationOrdered By: Deann Guerrero on 04-14-2023 Estimated Creatinine Clearance Calc 73.37 ml/min [facility] Estimated GFR (MDRD) Amer 79 mL/min >60 [facility] Comment on above: GFR Calc Estimated GFR (MDRD) Non-Af Amer 66 mL/min >60 [facility] Comment on above: Non- GFR Calc 28.0 pg 27.0-32.0 [facility] 16.4 % 11.6-14.6 [facility] 48.6 fl 35.1-43.9 [facility] 1.000 % 0.0-0.9 [facility] 0 % 0-5 [facility] 66 mL/min >60 [facility] 79 mL/min >60 [facility] 73.37 ml/min [facility] 9.6 RATIO 10-20 [facility] 5.0 g/dL 2.2-4.2 [facility] 80 U/L 13-75 [facility] 111 U/L 45-117 [facility] 23 U/L 13-56 [facility] 25.0 mmol/L 21.0-32.0 [facility] Platelets bldOrdered By: Sulema Guerrero on 04-14-2023 Platelets (Bld) [#/Vol] 565 10*3/uL 150-450 [facility] Serum or plasma albumin hussein urement (mass/volume)Ordered By: Deann Guerrero on 04-14-2023 Albumin [Mass/Vol] 3.2 g/dL 3.2-5.0 [facility] Serum or plasma calcium hussein urement (mass/volume)Ordered By: Deann Guerrero on 04-14-2023 Calcium [Mass/Vol] 9.5 mg/dL 8.5-10.1 [facility] Serum or plasma creatinine m easurement (mass/volume)Ordered By: Deann Guerrero on 04-14-2023 Creatinine [Mass/Vol] 1.04 mg/dL 0.55-1.02 [facility] Comment on above: The validity of the calculated GFR & GFRAA in patients over 70 years has not been determined. Clinical correlation is essential. Serum or plasma urea nitroge n measurement (mass/volume)Ordered By: Deann Guerrero on 04-14-2023 Urea nitrogen [Mass/Vol] 10 mg/dL 7-18 [facility] Thin prep Papanicolaou smear with manual screeningOrdered By: Deann Guerrero on 04-14-2023 Thin prep Papanicolaou smear with manual screening 13 U/L 15-37 [facility] Thin prep Papanicolaou smear with manual screening 7 5-15 [facility] Absolute lymphocyte countOrd ered By: Poli Barfield on 04-13-2023 Lymphocytes Auto (Unsp spec) [#/Vol] 3.04 10*3/uL 0.83-4.51 [facility] Basophil percentageOrdered B y: Poli Barfield on 04-13-2023 Basophil percentage 280 mg/dL 74-106 [facility] Basophil percentage 7.8 g/dL 6.4-8.2 [facility] Basophil percentage 0.60 mg/dL 0.20-1.00 [facility] Basophil percentage 132 mmol/L 136-145 [facility] Basophil percentage 4.0 mmol/L 3.5-5.1 [facility] Basophil percentage 100 mmol/L 98-107 [facility] Basophils (Bld) [#/Vol] 8.7 10*3/uL 4.4-11.0 [facility] Basophils (Bld) [#/Vol] 5.1 10*3/uL 2.0-7.7 [facility] Basophils/100 WBC (Bld) 58.8 % 47-[address] [facility] Basophils/100 WBC (Bld) 0.1 % 0-[address] [facility] Basophils/100 WBC (Bld) 0.6 % 0-[address] [facility] Bilirubin [Mass/Vol] 0.60 mg/dL 0.20-1.00 [facility] Comment on above: For patients on eltr ombopag therapy, use of Dimension [place] TBIL is not recommended. Chloride [Moles/Vol] 100 mmol/L 98-107 [facility] Eosinophils/100 WBC (Bld) 0.1 % 0-5 [facility] Glucose [Mass/Vol] 280 mg/dL 74-106 [facility] Comment on above: Glucose result great er than or equal to 200 mg/dLsuggests DIABETES MELLITUS per A.D.A. criteria. Neutrophils (Bld) [#/Vol] 5.1 10*3/uL 2.0-7.7 [facility] Neutrophils/100 WBC (Bld) 58.8 % 47-70 [facility] Potassium [Moles/Vol] 4.0 mmol/L 3.5-5.1 [facility] Protein [Mass/Vol] 7.8 g/dL 6.4-8.2 [facility] Sodium [Moles/Vol] 132 mmol/L 136-145 [facility] WBC (Bld) [#/Vol] 8.7 10*3/uL 4.4-11.0 [facility] Beta hCG serum qualOrdered B y: Poli Barfield on 04-13-2023 Beta HCG ( test) Ql Negative [facility] Blood erythrocytes count (nu mber/volume)Ordered By: Poli Barfield on 04-13-2023 RBC (Bld) [#/Vol] 4.42 10*6/uL 4.2-5.4 [facility] Blood hemoglobin measurement (mass/volume)Ordered By: Poli Barfield on 04-13-2023 Hemoglobin (Bld) [Mass/Vol] 12.6 g/dL 12.0-15.0 [facility] Blood lymphocytes/100 leukoc ytesOrdered By: Poli Barfield on 04-13-2023 Lymphocytes/100 WBC (Bld) 35.1 % 19-41 [facility] Blood monocytes/100 leukocyt esOrdered By: Poli Barfield on 04-13-2023 Monocytes/100 WBC (Bld) 4.6 % 0-[address] [facility] Blood platelet mean volumeOr dered By: Poli Barfield on 04-13-2023 Platelet mean volume (Bld) [Entitic vol] 8.3 fL 6.2-12.0 [facility] Determination of erythrocyte mean corpuscular volume (MCV)Ordered By: Poli Barfield on 04-13-2023 MCV (RBC) [Entitic vol] 87.3 fL 81-[address] [facility] Hematocrit Auto (Bld) [Volum e fraction]Ordered By: Poli Barfield on 04-13-2023 Hematocrit (Bld) [Volume fraction] 38.6 % 37-47 [facility] Laboratory - Chemistry and C hemistry - challengeOrdered By: Poli Barfield on 04-13-2023 ALP [Catalytic activity/Vol] 114 U/L 45-117 [facility] ALT [Catalytic activity/Vol] 23 U/L 13-56 [facility] CO2 [Moles/Vol] 24.0 mmol/L 21.0-32.0 [facility] Globulin (S) [Mass/Vol] 4.8 g/dL 2.2-4.[address] [facility] Lipase [Catalytic activity/Vol] 98 U/L 13-75 [facility] Comment on above: Please note:LIPASE r evised reference range effective 22. New Lipase methodology. Expected to produce lower values than the previous assay method. NEW Reference Range: 13 - 75 U/L Urea nitrogen/Creatinine [Mass ratio] 9.4 mg/mg 04-30 [facility] Laboratory - Hematology and Cell countsOrdered By: Poli Barfield on 04-13-2023 Erythrocyte distribution width (RBC) [Entitic vol] 47.7 fL 35.1-43.9 [facility] Erythrocyte distribution width (RBC) [Ratio] 16.6 % 11.6-14.6 [facility] Immature granulocytes/100 WBC (Bld) 0.800 % 0.0-0.9 [facility] Comment on above: IG% - Immature Granu locytes (promyelocytes, myelocytes and metamyelocytes) > 1% indicates that a LEFT SHIFT is Present. MCH (RBC) [Entitic mass] 28.5 pg 27.0-32.0 [facility] Nucleated RBC/100 WBC (Bld) [Ratio] 0 % 0-5 [facility] MCHC Auto (RBC) [Mass/Vol]Or dered By: Poli Barfield on 04-13-2023 MCHC (RBC) [Mass/Vol] 32.6 g/dL 32-36 [facility] No Panel InformationOrdered By: Poli Barfield on 04-13-2023 Estimated Creatinine Clearance Calc 59.62 ml/min [facility] Estimated GFR (MDRD) Amer 63 mL/min >60 [facility] Comment on above: GFR Calc Estimated GFR (MDRD) Non-Af Amer 52 mL/min >60 [facility] Comment on above: Non- GFR Calc 28.5 pg 27.0-32.0 [facility] 16.6 % 11.6-14.6 [facility] 47.7 fl 35.1-43.9 [facility] 0.800 % 0.0-0.9 [facility] 0 % 0-5 [facility] 52 mL/min >60 [facility] 63 mL/min >60 [facility] 59.62 ml/min [facility] 9.4 RATIO 04-30 [facility] 4.8 g/dL 2.2-4.2 [facility] 98 U/L 13-75 [facility] 114 U/L 45-117 [facility] 23 U/L 13-56 [facility] 24.0 mmol/L 21.0-32.0 [facility] Platelets bldOrdered By: Devon Barfield on 04-13-2023 Platelets (Bld) [#/Vol] 542 10*3/uL 150-450 [facility] Serum or plasma albumin hussein urement (mass/volume)Ordered By: Poli Barfield on 04-13-2023 Albumin [Mass/Vol] 3.0 g/dL 3.2-5.0 [facility] Serum or plasma albumin/glob ulin mass ratioOrdered By: Poli Barfield on 04-13-2023 Albumin/Globulin [Mass ratio] 0.6 {ratio} 0.9-2.4 [facility] Serum or plasma calcium hussein urement (mass/volume)Ordered By: Poli Barfield on 04-13-2023 Calcium [Mass/Vol] 9.5 mg/dL 8.5-10.1 [facility] Serum or plasma creatinine m easurement (mass/volume)Ordered By: Poli Barfield on 04-13-2023 Creatinine [Mass/Vol] 1.28 mg/dL 0.55-1.02 [facility] Comment on above: The validity of the calculated GFR & GFRAA in patients over 70 years has not been determined. Clinical correlation is essential. Serum or plasma urea nitroge n measurement (mass/volume)Ordered By: Poli Barfield on 04-13-2023 Urea nitrogen [Mass/Vol] 12 mg/dL 7-18 [facility] Thin prep Papanicolaou smear with manual screeningOrdered By: Poli Barfield on 04-13-2023 Thin prep Papanicolaou smear with manual screening 17 U/L 15-37 [facility] Thin prep Papanicolaou smear with manual screening 8 5-15 [facility] Absolute lymphocyte countOrd ered By: Rickey Shepard on 03-06-2023 Lymphocytes Auto (Unsp spec) [#/Vol] 3.14 10*3/uL 0.83-4.51 [facility] Basophil percentageOrdered B y: Rickey Shepard on 03-06-2023 Basophil percentage 215 mg/dL 74-106 [facility] Basophil percentage 8.4 g/dL 6.4-8.2 [facility] Basophil percentage 0.50 mg/dL 0.20-1.00 [facility] Basophil percentage 134 mmol/L 136-145 [facility] Basophil percentage 3.1 mmol/L 3.5-5.1 [facility] Basophil percentage 101 mmol/L 98-107 [facility] Basophil percentage 2.2 mmol/L 0.4-2.0 [facility] Basophils (Bld) [#/Vol] 10.9 10*3/uL 4.4-11.0 [facility] Basophils (Bld) [#/Vol] 6.9 10*3/uL 2.0-7.7 [facility] Basophils/100 WBC (Bld) 62.8 % 47-[address] [facility] Basophils/100 WBC (Bld) 0.2 % 0-[address] [facility] Basophils/100 WBC (Bld) 0.4 % 0-[address] [facility] Bilirubin [Mass/Vol] 0.50 mg/dL 0.20-1.00 [facility] Comment on above: For patients on eltr ombopag therapy, use of Dimension [place] TBIL is not recommended. Chloride [Moles/Vol] 101 mmol/L 98-107 [facility] Eosinophils/100 WBC (Bld) 0.2 % 0-5 [facility] Glucose [Mass/Vol] 215 mg/dL 74-106 [facility] Comment on above: Glucose result great er than or equal to 200 mg/dLsuggests DIABETES MELLITUS per A.D.A. criteria. Lactate [Moles/Vol] 2.2 mmol/L 0.4-2.0 [facility] Comment on above: Critical Result(s) C alled at: 09:58:40 03/06/2023 by: Gayathri Whiting to [employer]. Results read back by same. Neutrophils (Bld) [#/Vol] 6.9 10*3/uL 2.0-7.7 [facility] Neutrophils/100 WBC (Bld) 62.8 % 47-70 [facility] Potassium [Moles/Vol] 3.1 mmol/L 3.5-5.1 [facility] Protein [Mass/Vol] 8.4 g/dL 6.4-8.2 [facility] Sodium [Moles/Vol] 134 mmol/L 136-145 [facility] WBC (Bld) [#/Vol] 10.9 10*3/uL 4.4-11.0 [facility] Basophil percentage 0 SEEN /hpf 0-5 [facility] Bilirubin Test strip Ql (U)O rdered By: Rickey Shepard on 03-06-2023 Bilirubin Ql (U) Negative Negative [facility] Blood erythrocytes count (nu mber/volume)Ordered By: Rickey Shepard on 03-06-2023 RBC (Bld) [#/Vol] 4.33 10*6/uL 4.2-5.4 [facility] Blood hemoglobin measurement (mass/volume)Ordered By: Rickey Shepard on 03-06-2023 Hemoglobin (Bld) [Mass/Vol] 11.5 g/dL 12.0-15.0 [facility] Blood lymphocytes/100 leukoc ytesOrdered By: Rickey Shepard on 03-06-2023 Lymphocytes/100 WBC (Bld) 28.8 % 19-41 [facility] Blood monocytes/100 leukocyt esOrdered By: Rickey Shepard on 03-06-2023 Monocytes/100 WBC (Bld) 7.2 % 0-[address] [facility] Blood platelet mean volumeOr dered By: Rickey Shepard on 03-06-2023 Platelet mean volume (Bld) [Entitic vol] 9.2 fL 6.2-12.0 [facility] Determination of erythrocyte mean corpuscular volume (MCV)Ordered By: Rickey Shepard on 03-06-2023 MCV (RBC) [Entitic vol] 82.7 fL 81-[address] [facility] Hematocrit Auto (Bld) [Volum e fraction]Ordered By: Rickey Shepard on 03-06-2023 Hematocrit (Bld) [Volume fraction] 35.8 % 37-47 [facility] INR in Blood by Coagulation assayOrdered By: Rickey Shepard on 03-06-2023 INR Coag (Bld) [Relative time] 1.2 {INR} [facility] Ketones Test strip Ql (U)Ord ered By: Rickey Shepard on 03-06-2023 Ketones Ql (U) Negative Negative [facility] Laboratory - Chemistry and C hemistry - challengeOrdered By: Rickey Shepard on 03-06-2023 ALP [Catalytic activity/Vol] 109 U/L 45-117 [facility] ALT [Catalytic activity/Vol] 13 U/L 13-56 [facility] CO2 [Moles/Vol] 25.0 mmol/L 21.0-32.0 [facility] Globulin (S) [Mass/Vol] 5.2 g/dL 2.2-4.[address] [facility] Lipase [Catalytic activity/Vol] 59 U/L 13-75 [facility] Comment on above: Please note:LIPASE r evised reference range effective 22. New Lipase methodology. Expected to produce lower values than the previous assay method. NEW Reference Range: 13 - 75 U/L Urea nitrogen/Creatinine [Mass ratio] 4.0 mg/mg 10-20 [facility] Laboratory - CoagulationOrde red By: Rickey Shepard on 03-06-2023 aPTT Coag (Bld) [Time] 28.8 s 24.1-36.2 [facility] PT Coag (PPP) [Time] 14.8 s 11.7-14.9 [facility] Laboratory - Hematology and Cell countsOrdered By: Rickey Shepard on 03-06-2023 Erythrocyte distribution width (RBC) [Entitic vol] 41.1 fL 35.1-43.9 [facility] Erythrocyte distribution width (RBC) [Ratio] 13.6 % 11.6-14.6 [facility] Immature granulocytes/100 WBC (Bld) 0.600 % 0.0-0.9 [facility] Comment on above: IG% - Immature Granu locytes (promyelocytes, myelocytes and metamyelocytes) > 1% indicates that a LEFT SHIFT is Present. MCH (RBC) [Entitic mass] 26.6 pg 27.0-32.0 [facility] Nucleated RBC/100 WBC (Bld) [Ratio] 0 % 0-5 [facility] MCHC Auto (RBC) [Mass/Vol]Or dered By: Rickey Shepard on 03-06-2023 MCHC (RBC) [Mass/Vol] 32.1 g/dL 32-36 [facility] Mucus LM Ql (Urine sed)Order ed By: Rickey Shepard on 03-06-2023 Mucus Ql (Urine sed) 0 SEEN /hpf [facility] Nitrite Test strip Ql (U)Ord ered By: Rickey Shepard on 03-06-2023 Nitrite Ql (U) Negative Negative [facility] No Panel InformationOrdered By: Rickey Shepard on 03-06-2023 Estimated Creatinine Clearance Calc 75.55 ml/min [facility] Estimated GFR (MDRD) Amer 82 mL/min >60 [facility] Comment on above: GFR Calc Estimated GFR (MDRD) Non-Af Amer 68 mL/min >60 [facility] Comment on above: Non- GFR Calc 26.6 pg 27.0-32.0 [facility] 13.6 % 11.6-14.6 [facility] 41.1 fl 35.1-43.9 [facility] 0.600 % 0.0-0.9 [facility] 0 % 0-5 [facility] 14.8 SECONDS 11.7-14.9 [facility] 28.8 Seconds 24.1-36.2 [facility] 68 mL/min >60 [facility] 82 mL/min >60 [facility] 75.55 ml/min [facility] 4.0 RATIO 10-20 [facility] 5.2 g/dL 2.2-4.2 [facility] 59 U/L 13-75 [facility] 109 U/L 45-117 [facility] 13 U/L 13-56 [facility] 25.0 mmol/L 21.0-32.0 [facility] Platelets bldOrdered By: Ivy Shepard on 03-06-2023 Platelets (Bld) [#/Vol] 412 10*3/uL 150-450 [facility] Protein Test strip Ql (U)Ord ered By: Rickey Shepard on 03-06-2023 Protein Ql (U) 30 mg/dl Negative [facility] Serum or plasma acetone hussein urement (mass/volume)Ordered By: Rickey Shepard on 03-06-2023 Acetone [Mass/Vol] Negative NEG [facility] Serum or plasma albumin hussein urement (mass/volume)Ordered By: Rickey Shepard on 03-06-2023 Albumin [Mass/Vol] 3.2 g/dL 3.2-5.0 [facility] Serum or plasma albumin/glob ulin mass ratioOrdered By: Rickey Shepard on 03-06-2023 Albumin/Globulin [Mass ratio] 0.6 {ratio} 0.9-2.4 [facility] Serum or plasma calcium hussein urement (mass/volume)Ordered By: Rickey Shepard on 03-06-2023 Calcium [Mass/Vol] 9.3 mg/dL 8.5-10.1 [facility] Serum or plasma creatinine m easurement (mass/volume)Ordered By: Rickey Shepard on 03-06-2023 Creatinine [Mass/Vol] 1.01 mg/dL 0.55-1.02 [facility] Comment on above: The validity of the calculated GFR & GFRAA in patients over 70 years has not been determined. Clinical correlation is essential. Serum or plasma urea nitroge n measurement (mass/volume)Ordered By: Rickey Shepard on 03-06-2023 Urea nitrogen [Mass/Vol] 4 mg/dL 7-18 [facility] Squamous epithelial cells de tection in urine sediment by light microscopyOrdered By: Rickey Shepard on 03-06-2023 Epithelial cells.squamous LM Ql (Urine sed) 0-5 SEEN /hpf 5-10 [facility] Thin prep Papanicolaou smear with manual screeningOrdered By: Rickey Shepard on 03-06-2023 Thin prep Papanicolaou smear with manual screening 7 U/L 15-37 [facility] Thin prep Papanicolaou smear with manual screening 8 5-15 [facility] Urine blood detectionOrdered By: Rickey Shepard on 03-06-2023 RBC Ql (U) 10 /ul Negative [facility] RBC Ql (U) 0 SEEN /hpf 0-5 [facility] Urine clarityOrdered By: Ivy Shepard on 03-06-2023 Clarity (U) Clear Clear [facility] Urine color determinationOrd ered By: Rickey Shepard on 03-06-2023 Color (U) Yellow Yellow [facility] Urine glucose detectionOrder ed By: Rickey Shepard on 03-06-2023 Glucose Ql (U) 100 mg/dl Normal [facility] Urine leukocyte esterase det ection by dipstickOrdered By: Rickey Shepard on 03-06-2023 Leukocyte esterase Test strip Ql (U) 25 /ul Negative [facility] Urine pHOrdered By: Rickey webb on 03-06-2023 pH (U) 7.0 [pH] 5.0 - 8.0 [facility] Urine sediment bacteria coun t by microscopy (number/high power field)Ordered By: Rickey Shepard on 03-06-2023 Bacteria LM.HPF (Urine sed) [#/Area] RARE /hpf None Seen [facility] Urine specific gravity measu rementOrdered By: Rickey Shepard on 03-06-2023 Specific gravity (U) [Rel density] 1.010 1.002-1.030 [facility] Urobilinogen Auto test strip Ql (U)Ordered By: Rickey Shepard on 03-06-2023 Urobilinogen Ql (U) Normal mg/dl Normal [facility] Basic metabolic 2000 panelon 03-04-2023 Anion gap [Moles/Vol] 14 mmol/L Normal 9-18 [facility] Comment on above: Order Comment: Speci men Type: BLOOD SPECIMENOrdering Facility: [facility] Address: [address] [address] Performed By: #### 2 4321-2 ####[facility] LABORATORYCLIA [id number] [place] [address] [place] Calcium [Mass/Vol] 8.9 mg/dL Normal 8.5-10.2 [facility] Comment on above: Order Comment: Speci men Type: BLOOD SPECIMENOrdering Facility: [facility] Address: [address] [address] Performed By: #### 2 4321-2 ####[facility] LABORATORYCLIA [id number] [place] [address] [place] Chloride [Moles/Vol] 102 mmol/L Normal 97-105 [facility] Comment on above: Order Comment: Speci men Type: BLOOD SPECIMENOrdering Facility: [facility] Address: [address] [address] Performed By: #### 2 4321-2 ####[facility] LABORATORYCLIA [id number] [place] [address] [place] CO2 [Moles/Vol] 21 mmol/L Low 22-30 [facility] Comment on above: Order Comment: Mahogany vargas Type: BLOOD SPECIMENOrdering Facility: [facility] Address: [address] [place] [address] Performed By: #### 2 4321-2 ####[facility] LABORATORYCLIA [id number] [place] [address] [place] Creatinine [Mass/Vol] 0.78 mg/dL Normal 0.58-0.96 [facility] Comment on above: Order Comment: Mahogany vargas Type: BLOOD SPECIMENOrdering Facility: [facility] Address: [address] [place] [address] Performed By: #### 2 4321-2 ####[facility] CENTERCLIA [id number] [place] [address] [place] Creatinine and Glomerular filtration rate.predicted panel (S/P/Bld) 104 mL/min/1.73m??? Normal >=60 [facility] Comment on above: Order Comment: Mahogany vargas Type: BLOOD SPECIMENOrdering Facility: [facility] Address: [address] [place] [address] Result Comment: Samreen mated Glomerular Filtration Rate [...] actual GFR. Performed By: #### 2 4321-2 ####[facility] LABORATORYCLIA [id number] [place] [id number] [place] Glucose [Mass/Vol] 158 mg/dL High 74-99 [facility] Comment on above: Order Comment: Mahogany vargas Type: BLOOD SPECIMENOrdering Facility: [facility] Address: [address] [address] Result Comment: The [place] [employer] (ADA) provides guidance for cutoff [...] Standards of Medical Care in Diabetes 2016, [place] [employer]. Diabetes Care. 2016.39(Suppl 1). Performed By: #### 2 4321-2 ####[facility] LABORATORYCLIA [id number] [place] [address] [place] Potassium [Moles/Vol] 3.3 mmol/L Low 3.7-5.1 [facility] Comment on above: Order Comment: Speci men Type: BLOOD SPECIMENOrdering Facility: [facility] Address: [address] [address] Performed By: #### 2 4321-2 ####[facility] LABORATORYCLIA [id number] [place] [address] [place] Sodium [Moles/Vol] 137 mmol/L Normal 136-144 [facility] Comment on above: Order Comment: Speci men Type: BLOOD SPECIMENOrdering Facility: [facility] Address: [address] [address] Performed By: #### 2 4321-2 ####[facility] LABORATORYCLIA [id number] [place] [address] [place] Urea nitrogen [Mass/Vol] 4 mg/dL Low 7-21 [facility] Comment on above: Order Comment: Speci men Type: BLOOD SPECIMENOrdering Facility: [facility] Address: [address] [address] Performed By: #### 2 4321-2 ####[facility] LABORATORYCLIA [id number] [address] [place] CBC panel Auto (Bld)on 03-04 Erythrocyte distribution width (RBC) [Ratio] 13.5 % Normal 11.5-15.0 [facility] Comment on above: Order Comment: Speci men Type: BLOOD SPECIMENOrdering Facility: [facility] Address: [address] [place] [address] Performed By: #### 5 8410-2 ####[facility] LABORATORYCLIA [id number] [address] [place] Hematocrit (Bld) [Volume fraction] 34.2 % Low 36.0-46.0 [facility] Comment on above: Order Comment: Speci men Type: BLOOD SPECIMENOrdering Facility: [facility] Address: [address] [place] [address] Performed By: #### 5 8410-2 ####[facility] LABORATORYCLIA [id number] [address] [place] Hemoglobin (Bld) [Mass/Vol] 11.5 g/dL Normal 11.5-15.5 [facility] Comment on above: Order Comment: Speci men Type: BLOOD SPECIMENOrdering Facility: [facility] Address: [address] [place] [address] Performed By: #### 5 8410-2 ####[facility] LABORATORYCLIA [id number] [place] [address] [place] MCH (RBC) [Entitic mass] 27.4 pg Normal 26.0-34.0 [facility] Comment on above: Order Comment: Speci men Type: BLOOD SPECIMENOrdering Facility: [facility] Address: [address] [place] [address] Performed By: #### 5 8410-2 ####[facility] LABORATORYCLIA [id number] [address] [place] MCHC (RBC) [Mass/Vol] 33.6 g/dL Normal 30.5-36.0 [facility] Comment on above: Order Comment: Speci men Type: BLOOD SPECIMENOrdering Facility: [facility] Address: [address] [place] [address] Performed By: #### 5 8410-2 ####[facility] LABORATORYCLIA [id number] [place] [address] [place] MCV (RBC) [Entitic vol] 81.6 fL Normal 80.0-100.0 [facility] Comment on above: Order Comment: Speci men Type: BLOOD SPECIMENOrdering Facility: [facility] Address: [address] [place] [address] Performed By: #### 5 8410-2 ####[facility] LABORATORYCLIA [id number] [place] [address] [place] Nucleated RBC (Bld) [#/Vol] 10*3/uL Normal <0.01 [facility] Comment on above: Order Comment: Speci men Type: BLOOD SPECIMENOrdering Facility: [facility] Address: [address] [address] Performed By: #### 5 8410-2 ####[facility] LABORATORYCLIA [id number] [place] [address] [place] Platelet mean volume (Bld) [Entitic vol] 9.3 fL Normal 9.0-12.7 [facility] Comment on above: Order Comment: Speci men Type: BLOOD SPECIMENOrdering Facility: [facility] Address: [address] [place] [address] Performed By: #### 5 8410-2 ####[facility] LABORATORYCLIA [id number] [place] [address] [place] Platelets (Bld) [#/Vol] 362 10*3/uL Normal 150-400 [facility] Comment on above: Order Comment: Speci men Type: BLOOD SPECIMENOrdering Facility: [facility] Address: [address] [place] [address] Performed By: #### 5 8410-2 ####[facility] LABORATORYCLIA [id number] [place] [address] [place] RBC (Bld) [#/Vol] 4.19 10*6/uL Normal 3.90-5.20 [facility] Comment on above: Order Comment: Speci men Type: BLOOD SPECIMENOrdering Facility: [facility] Address: [address] [place] [address] Performed By: #### 5 8410-2 ####[facility] LABORATORYCLIA [id number] [address] WBC (Bld) [#/Vol] 10.19 10*3/uL Normal 3.70-11.00 [facility] Comment on above: Order Comment: Speci men Type: BLOOD SPECIMENOrdering Facility: [facility] Address: [address] [place] [address] Performed By: #### 5 8410-2 ####[facility] LABORATORYCLIA [id number] [address] CNDSon 03-04-2023 CNDS HNO ID: [id number] Author: Kelley Lopez MD Service: ? Author [...] office evaluation. 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 Vomiting too frequent to count and [...] was prescribed stool softeners and laxatives during [facility] stay however she refuses to take them [...] to discharge in AM. Discussed with social insurance adviser/case picker. Advance diet. PLAN 8/24/23: Hemodynamically is stable. Has been walking a lot. Gets anxious. Seen by psych and GI. Discussed with social insurance adviser/case picker. OK to discharge the patient. Rest of management as outpatient. I personally spent more than 30 minutes for discharge of this patient. Discussed with unit PA/[employer] SAFETY PROGRAM COORDINATOR about care plans. Recommended to see her psychiatrist as outpatient. Has had high BP readings. Will add Losartan. Is diabetic too.. Vitals and labs were closely monitored and evaluated while hospitalized. Electrolytes were replaced as needed. Patient is stable for discharge home today. Patient should follow up with primary care physician (Amy Solorzano: [phone]) in 7-10 days for hospital follow up. Attending physician to follow up with full discharge summary. OTHER PROBLEMS/DIAGNOSIS: Principal Problem: Intractable nausea and vomiting Active Problems: DM2 (diabetes mellitus, type 2) ([facility]) HLD (hyperlipidemia) Obesity, Class I, BMI 30-34.9 Abdominal pain Constipation Anxiety and depression Borderline personality disorder ([facility]) Resolved Problems: * No resolved hospital problems. * OPERATIONS PERFORMED WHILE IN THE HOSPITAL: None IMPORTANT TEST/PROCEDURES: CT Scan EKG Xray, Gastric Emptying Study TEST RESULTS NOT AVAILABLE AT THIS TIME: No pending results Discharge Disposition Home/Self Care A (more content not included)... [facility] NURSING PROGon 03-04-2023 NURSING PROG HNO ID: [id number] Author: Shiloh Carl RN Service: Nursing Author [...] given. Pt left stable. Due care given. [facility] NURSING PROG HNO ID: [id number] Author: Hilda Dunlap RN Service: ? Author Type: Registered Nurse Type: Nursing Progress Note Filed: 03/04/2023 3:31 PM Note Text: 0725: Assumed patient care at this time. Safety maintained. 1600: Discharge instructions completed at this time. IV removed. Safety maintained. Belongings with patient. Patient has no needs at this time. Normal [facility] Basic metabolic 2000 panelon 03-03-2023 Anion gap [Moles/Vol] 12 mmol/L Normal 9-18 [facility] Comment on above: Order Comment: Speci men Type: BLOOD SPECIMENOrdering Facility: [facility] Address: [address] [place] [address] Performed By: #### 2 4321-2 ####[facility] LABORATORYCLIA [id number] [place] [address] [place] Calcium [Mass/Vol] 9.3 mg/dL Normal 8.5-10.2 [facility] Comment on above: Order Comment: Speci men Type: BLOOD SPECIMENOrdering Facility: [facility] Address: [address] [place] [address] Performed By: #### 2 4321-2 ####[facility] LABORATORYCLIA [id number] [place] [address] [place] Chloride [Moles/Vol] 103 mmol/L Normal 97-105 [facility] Comment on above: Order Comment: Speci men Type: BLOOD SPECIMENOrdering Facility: [facility] Address: [address] [place] [address] Performed By: #### 2 4321-2 ####[facility] LABORATORYCLIA [id number] [place] [address] [place] CO2 [Moles/Vol] 24 mmol/L Normal 22-30 [facility] Comment on above: Order Comment: Speci men Type: BLOOD SPECIMENOrdering Facility: [facility] Address: [address] [place] [address] Performed By: #### 2 4321-2 ####[facility] LABORATORYCLIA [id number] [place] [address] [place] Creatinine [Mass/Vol] 0.87 mg/dL Normal 0.58-0.96 [facility] Comment on above: Order Comment: Speci men Type: BLOOD SPECIMENOrdering Facility: [facility] Address: [address] [place] [address] Performed By: #### 2 4321-2 ####[facility] LABORATORYCLIA [id number] [place] [id number] [place] Creatinine and Glomerular filtration rate.predicted panel (S/P/Bld) 91 mL/min/1.73m??? Normal >=60 [facility] Comment on above: Order Comment: Mahogany vargas Type: BLOOD SPECIMENOrdering Facility: [facility] Address: [address] [place] [address] Result Comment: Samreen mated Glomerular Filtration Rate [...] actual GFR. Performed By: #### 2 4321-2 ####[facility] LABORATORYCLIA [id number] [place] [address] [place] Glucose [Mass/Vol] 137 mg/dL High 74-99 [facility] Comment on above: Order Comment: Mahogany vargas Type: BLOOD SPECIMENOrdering Facility: [facility] Address: [address] [place] [address] Result Comment: The [place] Diabetes Association (ADA) provides guidance for cutoff [...] Standards of Medical Care in Diabetes 2016, [place] [employer]. Diabetes Care. 2016.39(Suppl 1). Performed By: #### 2 4321-2 ####[facility] LABORATORYCLIA [id number] [place] [address] [place] Potassium [Moles/Vol] 3.5 mmol/L Low 3.7-5.1 [facility] Comment on above: Order Comment: Speci men Type: BLOOD SPECIMENOrdering Facility: [facility] Address: [address] [place] [address] Performed By: #### 2 4321-2 ####[facility] LABORATORYCLIA [id number] [place] [address] [place] Sodium [Moles/Vol] 139 mmol/L Normal 136-144 [facility] Comment on above: Order Comment: Speci men Type: BLOOD SPECIMENOrdering Facility: [facility] Address: [address] [place] [address] Performed By: #### 2 4321-2 ####[facility] LABORATORYCLIA [id number] [place] [address] [place] Urea nitrogen [Mass/Vol] 6 mg/dL Low 7-21 [facility] Comment on above: Order Comment: Speci men Type: BLOOD SPECIMENOrdering Facility: [facility] Address: [address] [place] [address] Performed By: #### 2 4321-2 ####[facility] LABORATORYCLIA [id number] [place] [address] [place] CBC panel Auto (Bld)on 03-03 Erythrocyte distribution width (RBC) [Ratio] 13.2 % Normal 11.5-15.0 [facility] Comment on above: Order Comment: Speci men Type: BLOOD SPECIMENOrdering Facility: [facility] Address: [address] [place] [address] Performed By: #### 5 8410-2 ####[facility] LABORATORYCLIA [id number] [place] [address] [place] Hematocrit (Bld) [Volume fraction] 36.1 % Normal 36.0-46.0 [facility] Comment on above: Order Comment: Speci men Type: BLOOD SPECIMENOrdering Facility: [facility] Address: [address] [place] [address] Performed By: #### 5 8410-2 ####[facility] LABORATORYCLIA [id number] [place] [address] [place] Hemoglobin (Bld) [Mass/Vol] 12.2 g/dL Normal 11.5-15.5 [facility] Comment on above: Order Comment: Speci men Type: BLOOD SPECIMENOrdering Facility: [facility] Address: [address] [place] [address] Performed By: #### 5 8410-2 ####[facility] LABORATORYCLIA [id number] [place] [address] [place] MCH (RBC) [Entitic mass] 27.4 pg Normal 26.0-34.0 [facility] Comment on above: Order Comment: Speci men Type: BLOOD SPECIMENOrdering Facility: [facility] Address: [address] [place] [address] Performed By: #### 5 8410-2 ####[facility] LABORATORYCLIA [id number] [address] [place] MCHC (RBC) [Mass/Vol] 33.8 g/dL Normal 30.5-36.0 [facility] Comment on above: Order Comment: Speci men Type: BLOOD SPECIMENOrdering Facility: [facility] Address: [address] [place] [address] Performed By: #### 5 8410-2 ####[facility] LABORATORYCLIA [id number] [address] [place] MCV (RBC) [Entitic vol] 81.1 fL Normal 80.0-100.0 [facility] Comment on above: Order Comment: Speci men Type: BLOOD SPECIMENOrdering Facility: [facility] Address: [address] [place] [address] Performed By: #### 5 8410-2 ####[facility] LABORATORYCLIA [id number] [place] [address] [place] Nucleated RBC (Bld) [#/Vol] 10*3/uL Normal <0.01 [facility] Comment on above: Order Comment: Speci men Type: BLOOD SPECIMENOrdering Facility: [facility] Address: [address] [place] [address] Performed By: #### 5 8410-2 ####[facility] LABORATORYCLIA [id number] [place] [address] [place] Platelet mean volume (Bld) [Entitic vol] 9.0 fL Normal 9.0-12.7 [facility] Comment on above: Order Comment: Speci men Type: BLOOD SPECIMENOrdering Facility: [facility] Address: [address] [place] [address] Performed By: #### 5 8410-2 ####[facility] LABORATORYCLIA [id number] [place] [address] [place] Platelets (Bld) [#/Vol] 397 10*3/uL Normal 150-400 [facility] Comment on above: Order Comment: Speci men Type: BLOOD SPECIMENOrdering Facility: [facility] Address: [address] [place] [address] Performed By: #### 5 8410-2 ####[facility] LABORATORYCLIA [id number] [place] [address] [place] RBC (Bld) [#/Vol] 4.45 10*6/uL Normal 3.90-5.20 [facility] Comment on above: Order Comment: Speci men Type: BLOOD SPECIMENOrdering Facility: [facility] Address: [address] [place] [address] Performed By: #### 5 8410-2 ####[facility] LABORATORYCLIA [id number] [place] [address] [place] WBC (Bld) [#/Vol] 13.15 10*3/uL High 3.70-11.00 [facility] Comment on above: Order Comment: Speci men Type: BLOOD SPECIMENOrdering Facility: [facility] Address: [place] [address] Performed By: #### 5 8410-2 ####[facility] LABORATORYCLIA [id number] [place] [id number] [facility] CONSULTon 03-03-2023 CONSULT HNO ID: [id number] Author: Cayetano Tai MD Service: Psychiatry Author [...] admitted with intractable vomiting. She is from [place], [place] and was in [place] for a GI appointment and was sent [...] DATE: March 03, 2023 TIME: 3:03 PM [facility] CT ABD/PEL W IVCONon 023 CT ABD/PEL W IVCON * * *Final Report* * * DATE OF EXAM: Mar 03 2023 11:01AM [facility] ABD/PEL W IVCON / [...] on Mar 03 2023 11:11AM EST [id number] [facility] NURSING PROGon 03-03-2023 NURSING PROG HNO ID: [id number] Author: Anayeli Blue RN Service: PICC Team [...] 03, 2023 TIME: 10:46 AM PAGER/CONTACT #: [phone] [facility] NURSING PROG HNO ID: [id number] Author: Hilda Dunlap RN Service: ? Author [...] GI to come assess patient at bedside. [facility] ALLIED HEALTHon 03-02-2023 ALLIED HEALTH HNO ID: [id number] Author: Omari Juan RT(R) Service: Radiology Author [...] RT Marleni(R) March 02, 2023 5:12 PM [facility] Basic metabolic 2000 panelon 03-02-2023 Anion gap [Moles/Vol] 12 mmol/L Normal 9-18 [facility] Comment on above: Order Comment: Speci men Type: BLOOD SPECIMENOrdering Facility: [facility] Address: [address] [place], [place] [address] Performed By: #### 2 4321-2 ####[facility] LABORATORYCLIA [id number] [place] [address] [place] Calcium [Mass/Vol] 8.9 mg/dL Normal 8.5-10.2 [facility] Comment on above: Order Comment: Speci men Type: BLOOD SPECIMENOrdering Facility: [facility] Address: [address] [place] [address] Performed By: #### 2 4321-2 ####[facility] LABORATORYCLIA [id number] [place] [address] [place] Chloride [Moles/Vol] 102 mmol/L Normal 97-105 [facility] Comment on above: Order Comment: Speci men Type: BLOOD SPECIMENOrdering Facility: [facility] Address: [address] [place] [address] Performed By: #### 2 4321-2 ####[facility] LABORATORYCLIA [id number] [place] [address] [place] CO2 [Moles/Vol] 26 mmol/L Normal 22-30 [facility] Comment on above: Order Comment: Speci men Type: BLOOD SPECIMENOrdering Facility: [facility] Address: [address] [place] [address] Performed By: #### 2 4321-2 ####[facility] LABORATORYCLIA [id number] [place] [address] [place] Creatinine [Mass/Vol] 0.92 mg/dL Normal 0.58-0.96 [facility] Comment on above: Order Comment: Speci men Type: BLOOD SPECIMENOrdering Facility: [facility] Address: [address] [place] [address] Performed By: #### 2 4321-2 ####[facility] LABORATORYCLIA [id number] [place] [address] [place] Creatinine and Glomerular filtration rate.predicted panel (S/P/Bld) 86 mL/min/1.73m??? Normal >=60 [facility] Comment on above: Order Comment: Speci men Type: BLOOD SPECIMENOrdering Facility: [facility] Address: [address] [place] [address] Result Comment: Samreen mated Glomerular Filtration Rate [...] actual GFR. Performed By: #### 2 4321-2 ####[facility] LABORATORYCLIA [id number] [place] [address] [place] Glucose [Mass/Vol] 162 mg/dL High 74-99 [facility] Comment on above: Order Comment: Mahogany vargas Type: BLOOD SPECIMENOrdering Facility: [facility] Address: [address] [place] [address] Result Comment: The [place] Diabetes Association (ADA) provides guidance for cutoff [...] Standards of Medical Care in Diabetes 2016, [place] [employer]. Diabetes Care. 2016.39(Suppl 1). Performed By: #### 2 4321-2 ####[facility] LABORATORYCLIA [id number] [place] [address] [place] Potassium [Moles/Vol] 3.7 mmol/L Normal 3.7-5.1 [facility] Comment on above: Order Comment: Mahogany vargas Type: BLOOD SPECIMENOrdering Facility: [facility] Address: [address] [place] [address] Performed By: #### 2 4321-2 ####[facility] LABORATORYCLIA [id number] [place] [address] [place] Sodium [Moles/Vol] 140 mmol/L Normal 136-144 [facility] Comment on above: Order Comment: Speci men Type: BLOOD SPECIMENOrdering Facility: [facility] Address: [address] [place] [address] Performed By: #### 2 4321-2 ####[facility] LABORATORYCLIA [id number] [place] [id number] [place] Urea nitrogen [Mass/Vol] 8 mg/dL Normal 7-21 [facility] Comment on above: Order Comment: Speci men Type: BLOOD SPECIMENOrdering Facility: [facility] Address: [address] [place] [address] Performed By: #### 2 4321-2 ####[facility] LABORATORYCLIA [id number] [place] [address] [place] CBC panel Auto (Bld)on 03-02 Erythrocyte distribution width (RBC) [Ratio] 13.4 % Normal 11.5-15.0 [facility] Comment on above: Order Comment: Speci men Type: BLOOD SPECIMENOrdering Facility: [facility] Address: [address] [place] [address] Performed By: #### 5 8410-2 ####[facility] LABORATORYCLIA [id number] [place] [address] [place] Hematocrit (Bld) [Volume fraction] 34.1 % Low 36.0-46.0 [facility] Comment on above: Order Comment: Speci men Type: BLOOD SPECIMENOrdering Facility: [facility] Address: [address] [place] [address] Performed By: #### 5 8410-2 ####[facility] LABORATORYCLIA [id number] [place] [address] [place] Hemoglobin (Bld) [Mass/Vol] 11.3 g/dL Low 11.5-15.5 [facility] Comment on above: Order Comment: Speci men Type: BLOOD SPECIMENOrdering Facility: [facility] Address: [address] [place] [address] Performed By: #### 5 8410-2 ####[facility] LABORATORYCLIA [id number] [address] MCH (RBC) [Entitic mass] 27.2 pg Normal 26.0-34.0 [facility] Comment on above: Order Comment: Speci men Type: BLOOD SPECIMENOrdering Facility: [facility] Address: [address] [place] [address] Performed By: #### 5 8410-2 ####[facility] LABORATORYCLIA [id number] [address] MCHC (RBC) [Mass/Vol] 33.1 g/dL Normal 30.5-36.0 [facility] Comment on above: Order Comment: Speci men Type: BLOOD SPECIMENOrdering Facility: [facility] Address: [address] [place] [address] Performed By: #### 5 8410-2 ####[facility] LABORATORYCLIA [id number] [address] [place] MCV (RBC) [Entitic vol] 82.2 fL Normal 80.0-100.0 [facility] Comment on above: Order Comment: Speci men Type: BLOOD SPECIMENOrdering Facility: [facility] Address: [address] [place] [address] Performed By: #### 5 8410-2 ####[facility] LABORATORYCLIA [id number] [address] [place] Nucleated RBC (Bld) [#/Vol] 10*3/uL Normal <0.01 [facility] Comment on above: Order Comment: Speci men Type: BLOOD SPECIMENOrdering Facility: [facility] Address: [address] [place] [address] Performed By: #### 5 8410-2 ####[facility] LABORATORYCLIA [id number] [address] [place] Platelet mean volume (Bld) [Entitic vol] 9.4 fL Normal 9.0-12.7 [facility] Comment on above: Order Comment: Speci men Type: BLOOD SPECIMENOrdering Facility: [facility] Address: [address] [place] [address] Performed By: #### 5 8410-2 ####[facility] LABORATORYCLIA [id number] [place] [address] [place] Platelets (Bld) [#/Vol] 374 10*3/uL Normal 150-400 [facility] Comment on above: Order Comment: Speci men Type: BLOOD SPECIMENOrdering Facility: [facility] Address: [address] [place] [address] Performed By: #### 5 8410-2 ####[facility] LABORATORYCLIA [id number] [place] [address] [place] RBC (Bld) [#/Vol] 4.15 10*6/uL Normal 3.90-5.20 [facility] Comment on above: Order Comment: Speci men Type: BLOOD SPECIMENOrdering Facility: [facility] Address: [address] [place] [address] Performed By: #### 5 8410-2 ####[facility] LABORATORYCLIA [id number] [place] [address] [place] WBC (Bld) [#/Vol] 9.29 10*3/uL Normal 3.70-11.00 [facility] Comment on above: Order Comment: Speci men Type: BLOOD SPECIMENOrdering Facility: [facility] Address: [address] [place] [address] Performed By: #### 5 8410-2 ####[facility] LABORATORYCLIA [id number] [address] [place] Neha 03-02-2023 HELGA Telephone (SPPRAD) GHISLAINE GIVENS ([id number]) 1990 F [place] Date Time Provider Department [...] Visit Diagnosis:Nausea [R11.0] Order(s):NM GASTRIC EMPTYING SOLID [[id number]] Order #: [id number] FUTURE Prescriptions as of 01/31/2024 - acetaminophen [...] type 2) (HCC) [E11.9] 03/16/2013 Elevated BP [PKO8119] 04/28/2013 11/27/2013 HLD (hyperlipidemia) [E78.5] 11/27/2013 Tobacco use disorder [F17.200] 11/27/2013 Obesity, Class I, BMI 30-34.9 [E66.9] 02/18/2023 Intractable nausea and vomiting [R11.2] 02/18/2023 Severe protein-calorie malnutrition (HCC) [E43] 02/19/2023 Abdominal pain [R10.9] 03/01/2023 Constipation [K59.00] 03/02/2023 Anxiety and depression [F41.9, F32.A] 03/02/2023 Borderline personality disorder (HCC) [F60.3] 03/02/2023 Encounter Status:Closed by ALMITA KELLY on 01/31/24 [facility] CONSULTon 03-02-2023 CONSULT HNO ID: [id number] Author: Gen Bradford MD Service: Gastroenterology Author Type: Physician Type: Consults Filed: 03/02/2023 5:20 PM Note Text: [facility] STAFF PHYSICIAN NOTE OF PERSONAL INVOLVEMENT [...] 02, 2023 Patient: Ghislaine Givens Medical Record: [id number] Reason for Consult: Abdominal pain, vomiting Requesting [...] mild gastritis and an esophageal ulcer at [facility]. She was escorted down from Dr. Doran's [...] directed. Patient (more content not included)... Normal [facility] HISTORY PHYSICALon HISTORY PHYSICAL HNO ID: [id number] Author: Kelley Lopez MD Service: ? Author [...] office evaluation. 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 Vomiting too frequent to count and [...] was prescribed stool softeners and laxatives during [facility] stay however she refuses to take them because she feels they worsen abdominal pain. She was also prescribed narcotic pain medication for home which she states she has been taking. PAST MEDICAL HISTORY: PAST MEDICAL HISTORY Diagnosis Date Bipolar 1 disorder ([facility]) 2007 Depression Diabetes mellitus ([facility]) Elevated BP 04/28/2013 Insomnia PAST SURGICAL HISTORY: [...] daily bef (more content not included)... Normal [facility] XR ABDOMEN 1V SUPINEon 03-02 XR ABDOMEN [...] Mar 02 2023 5:24PM EST [id number] Normal [facility] CBC W Auto Differential pane l (Bld)on 03-01-2023 Basophils (Bld) [#/Vol] 0.04 10*3/uL Normal <0.11 [facility] Comment on above: Order Comment: Speci men Type: BLOOD SPECIMENOrdering Facility: [facility] Address: [address] [place] [address] Performed By: #### 5 7021-8 ####[facility] LABORATORYCLIA [id number] [place] [address] [place] Basophils/100 WBC (Bld) 0.3 % Normal [facility] Comment on above: Order Comment: Speci men Type: BLOOD SPECIMENOrdering Facility: [facility] Address: [address] [place] [address] Performed By: #### 5 7021-8 ####[facility] LABORATORYCLIA [id number] [place] [address] [place] Differential cell count method Nom (Bld) [facility] Comment on above: Order Comment: Speci men Type: BLOOD SPECIMENOrdering Facility: [facility] Address: [address] [place] [address] Performed By: #### 5 7021-8 ####[facility] LABORATORYCLIA [id number] [place] [address] [place] Eosinophils (Bld) [#/Vol] 0.03 10*3/uL Normal <0.46 [facility] Comment on above: Order Comment: Speci men Type: BLOOD SPECIMENOrdering Facility: [facility] Address: [address] [place] [address] Performed By: #### 5 7021-8 ####[facility] LABORATORYCLIA [id number] [place] [address] [place] Eosinophils/100 WBC (Bld) 0.2 % [facility] Comment on above: Order Comment: Speci men Type: BLOOD SPECIMENOrdering Facility: [facility] Address: [address] [address] Performed By: #### 5 7021-8 ####[facility] LABORATORYCLIA [id number] [place] [address] [place] Erythrocyte distribution width (RBC) [Ratio] 13.6 % Normal 11.5-15.0 [facility] Comment on above: Order Comment: Speci men Type: BLOOD SPECIMENOrdering Facility: [facility] Address: [address] [address] Performed By: #### 5 7021-8 ####[facility] LABORATORYCLIA [id number] [place] [address] [place] Hematocrit (Bld) [Volume fraction] 41.4 % Normal 36.0-46.0 [facility] Comment on above: Order Comment: Speci men Type: BLOOD SPECIMENOrdering Facility: [facility] Address: [address] [address] Performed By: #### 5 7021-8 ####[facility] LABORATORYCLIA [id number] [place] [address] [place] Hemoglobin (Bld) [Mass/Vol] 13.6 g/dL Normal 11.5-15.5 [facility] Comment on above: Order Comment: Speci men Type: BLOOD SPECIMENOrdering Facility: [facility] Address: [address] [address] Performed By: #### 5 7021-8 ####[facility] LABORATORYCLIA [id number] [place] [address] [place] Immature granulocytes (Bld) [#/Vol] 0.08 10*3/uL Normal <0.10 [facility] Comment on above: Order Comment: Speci men Type: BLOOD SPECIMENOrdering Facility: [facility] Address: [address] [address] Performed By: #### 5 7021-8 ####[facility] LABORATORYCLIA [id number] [place] [address] [place] Immature granulocytes/100 WBC (Bld) 0.6 % Normal [facility] Comment on above: Order Comment: Speci men Type: BLOOD SPECIMENOrdering Facility: [facility] Address: [address] [place] [address] Performed By: #### 5 7021-8 ####[facility] LABORATORYCLIA [id number] [place] [address] [place] Lymphocytes (Bld) [#/Vol] 3.86 10*3/uL Normal 1.00-4.00 [facility] Comment on above: Order Comment: Speci men Type: BLOOD SPECIMENOrdering Facility: [facility] Address: [address] [place] [address] Performed By: #### 5 7021-8 ####[facility] LABORATORYCLIA [id number] [address] [place] Lymphocytes/100 WBC (Bld) 28.3 % Normal [facility] Comment on above: Order Comment: Speci men Type: BLOOD SPECIMENOrdering Facility: [facility] Address: [address] [place] [address] Performed By: #### 5 7021-8 ####[facility] LABORATORYCLIA [id number] [place] [address] [place] MCH (RBC) [Entitic mass] 26.8 pg Normal 26.0-34.0 [facility] Comment on above: Order Comment: Speci men Type: BLOOD SPECIMENOrdering Facility: [facility] Address: [address] [place] [address] Performed By: #### 5 7021-8 ####[facility] LABORATORYCLIA [id number] [address] [place] MCHC (RBC) [Mass/Vol] 32.9 g/dL Normal 30.5-36.0 [facility] Comment on above: Order Comment: Speci men Type: BLOOD SPECIMENOrdering Facility: [facility] Address: [address] [place] [address] Performed By: #### 5 7021-8 ####[facility] LABORATORYCLIA [id number] [place] [address] [place] MCV (RBC) [Entitic vol] 81.7 fL Normal 80.0-100.0 [facility] Comment on above: Order Comment: Speci men Type: BLOOD SPECIMENOrdering Facility: [facility] Address: [address] [place] [address] Performed By: #### 5 7021-8 ####[facility] LABORATORYCLIA [id number] [place] [address] [place] Monocytes (Bld) [#/Vol] 0.80 10*3/uL Normal <0.87 [facility] Comment on above: Order Comment: Speci men Type: BLOOD SPECIMENOrdering Facility: [facility] Address: [address] [place] [address] Performed By: #### 5 7021-8 ####[facility] LABORATORYCLIA [id number] [place] [address] [place] Monocytes/100 WBC (Bld) 5.9 % Normal [facility] Comment on above: Order Comment: Speci men Type: BLOOD SPECIMENOrdering Facility: [facility] Address: [address] [place] [address] Performed By: #### 5 7021-8 ####[facility] LABORATORYCLIA [id number] [place] [address] [place] Neutrophils (Bld) [#/Vol] 8.85 10*3/uL High 1.45-7.50 [facility] Comment on above: Order Comment: Speci men Type: BLOOD SPECIMENOrdering Facility: [facility] Address: [address] [place] [address] Performed By: #### 5 7021-8 ####[facility] LABORATORYCLIA [id number] [place] [address] [place] Neutrophils/100 WBC (Bld) 64.7 % Normal [facility] Comment on above: Order Comment: Speci men Type: BLOOD SPECIMENOrdering Facility: [facility] Address: [address] [place] [address] Performed By: #### 5 7021-8 ####[facility] LABORATORYCLIA [id number] [place] [address] [place] Nucleated RBC (Bld) [#/Vol] 10*3/uL Normal <0.01 [facility] Comment on above: Order Comment: Speci men Type: BLOOD SPECIMENOrdering Facility: [facility] Address: [address] [place] [address] Performed By: #### 5 7021-8 ####[facility] LABORATORYCLIA [id number] [place] [address] [place] Nucleated RBC/100 WBC (Bld) [Ratio] 0.0 /100 WBC Normal [facility] Comment on above: Order Comment: Speci men Type: BLOOD SPECIMENOrdering Facility: [facility] Address: [address] [address] Performed By: #### 5 7021-8 ####[facility] LABORATORYCLIA [id number] [place] [address] [place] Platelet mean volume (Bld) [Entitic vol] 9.3 fL Normal 9.0-12.7 [facility] Comment on above: Order Comment: Speci men Type: BLOOD SPECIMENOrdering Facility: [facility] Address: [address] Performed By: #### 5 7021-8 ####[facility] LABORATORYCLIA [id number] [place] [address] [place] Platelets (Bld) [#/Vol] 495 10*3/uL High 150-400 [facility] Comment on above: Order Comment: Speci men Type: BLOOD SPECIMENOrdering Facility: [facility] Address: [address] [address] Performed By: #### 5 7021-8 ####[facility] LABORATORYCLIA [id number] [place] [address] [place] RBC (Bld) [#/Vol] 5.07 10*6/uL Normal 3.90-5.20 [facility] Comment on above: Order Comment: Speci men Type: BLOOD SPECIMENOrdering Facility: [facility] Address: [address] [place] [address] Performed By: #### 5 7021-8 ####[facility] LABORATORYCLIA [id number] [place] [address] [place] WBC (Bld) [#/Vol] 13.66 10*3/uL High 3.70-11.00 [facility] Comment on above: Order Comment: Speci men Type: BLOOD SPECIMENOrdering Facility: [facility] Address: [address] [place] [address] Performed By: #### 5 7021-8 ####[facility] CENTERCLIA [id number] [address] Comprehensive metabolic 2000 panelon 03-01-2023 Albumin [Mass/Vol] 4.1 g/dL Normal 3.9-4.9 [facility] Comment on above: Order Comment: Speci men Type: BLOOD SPECIMENOrdering Facility: [facility] Address: [address] [place] [address] Performed By: #### [place], 39656-1, 3040-3, 11136-6 ####[facility] LABORATORYCLIA [id number] [place] [address] [place] ALP [Catalytic activity/Vol] 102 U/L Normal 34-123 [facility] Comment on above: Order Comment: Speci men Type: BLOOD SPECIMENOrdering Facility: [facility] Address: [address] [place] [address] Performed By: #### B HB, 07229-1, 3040-3, 15217-9 ####[facility] LABORATORYCLIA [id number] [place] [address] [place] ALT [Catalytic activity/Vol] 10 U/L Normal 7-38 [facility] Comment on above: Order Comment: Speci men Type: BLOOD SPECIMENOrdering Facility: [facility] Address: [address] [place] [address] Performed By: #### B HB, , 3040-3, 64684-0 ####[facility] LABORATORYCLIA [id number] [address] [id number] [place] Anion gap [Moles/Vol] 15 mmol/L Normal 9-18 [facility] Comment on above: Order Comment: Speci men Type: BLOOD SPECIMENOrdering Facility: [facility] Address: [address] [place] [address] Performed By: #### Tarik HB, , 3040-3, 99716-7 ####[facility] LABORATORYCLIA [id number] [place] [address] [place] AST [Catalytic activity/Vol] 12 U/L Low 13-35 [facility] Comment on above: Order Comment: Speci men Type: BLOOD SPECIMENOrdering Facility: [facility] Address: [address] [place] [address] Performed By: #### Tarik HB, , 3039-3, 21598-4 ####[facility] LABORATORYCLIA [id number] [place] [address] [place] Bilirubin [Mass/Vol] 0.4 mg/dL Normal 0.2-1.3 [facility] Comment on above: Order Comment: Speci men Type: BLOOD SPECIMENOrdering Facility: [facility] Address: [address] [place] [address] Performed By: #### B HB, , 3040-3, 29603-8 ####[facility] LABORATORYCLIA [id number] [place] [address] [place] Calcium [Mass/Vol] 9.8 mg/dL Normal 8.5-10.2 [facility] Comment on above: Order Comment: Speci men Type: BLOOD SPECIMENOrdering Facility: [facility] Address: [address] [place] [address] Performed By: #### B HB, 41255-9, 3040-3, 31453-5 ####[facility] LABORATORYCLIA [id number] [place] [id number] [place] Chloride [Moles/Vol] 95 mmol/L Low 97-105 [facility] Comment on above: Order Comment: Speci men Type: BLOOD SPECIMENOrdering Facility: [facility] Address: [address] [place] [address] Performed By: #### B HB, 00843-2, 3040-3, 45284-6 ####[facility] LABORATORYCLIA [id number] [place] [id number] [place] CO2 [Moles/Vol] 23 mmol/L Normal 22-30 [facility] Comment on above: Order Comment: Speci men Type: BLOOD SPECIMENOrdering Facility: [facility] Address: [address] [place] [address] Performed By: #### B HB, 68379-7, 0-3, 86193-4 ####[facility] LABORATORYCLIA [id number] [place] [address] [place] Creatinine [Mass/Vol] 1.02 mg/dL High 0.58-0.96 [facility] Comment on above: Order Comment: Speci men Type: BLOOD SPECIMENOrdering Facility: [facility] Address: [address] [place] [address] Performed By: #### B HB, 74043-0, 0-3, 79629-5 ####[facility] LABORATORYCLIA [id number] [place] [id number] [facility] [place] Creatinine and Glomerular filtration rate.predicted panel (S/P/Bld) 76 mL/min/1.73m??? Normal >=60 [facility] Comment on above: Order Comment: Speci men Type: BLOOD SPECIMENOrdering Facility: [facility] Address: [address] [id number] Result Comment: Samreen mated Glomerular Filtration Rate [...] GFR. Performed By: #### B HB, , 3039-3, ####[facility] LABORATORYCLIA [id number] [place] [address] [place] Glucose [Mass/Vol] 258 mg/dL High 74-99 [facility] Comment on above: Order Comment: Mahogany vargas Type: BLOOD SPECIMENOrdering Facility: [facility] Address: [address] [address] Result Comment: The [place] Diabetes Association (ADA) provides guidance for cutoff [...] Standards of Medical Care in Diabetes 2016, [place] [employer]. Diabetes Care. 2016.39(Suppl 1). Performed By: #### B HB, , 3039-3, ####[facility] LABORATORYCLIA [id number] [place] [address] [place] Potassium [Moles/Vol] 3.5 mmol/L Low 3.7-5.1 [facility] Comment on above: Order Comment: Mahogany vargas Type: BLOOD SPECIMENOrdering Facility: [facility] Address: [address] [address] Performed By: #### B HB, 00399-3, 3040-3, 36062-0 ####[facility] LABORATORYCLIA [id number] [place] [id number] [place] Protein [Mass/Vol] 8.5 g/dL High 6.3-8.0 [facility] Comment on above: Order Comment: Speci men Type: BLOOD SPECIMENOrdering Facility: [facility] Address: [address] [place] [address] Performed By: #### B HB, , 0-3, 85027-1 ####[facility] LABORATORYCLIA [id number] [place] [id number] [place] Sodium [Moles/Vol] 133 mmol/L Low 136-144 [facility] Comment on above: Order Comment: Speci men Type: BLOOD SPECIMENOrdering Facility: [facility] Address: [address] [place] [address] Performed By: #### B HB, , 3039-3, 78619-8 ####[facility] LABORATORYCLIA [id number] [place] [address] [place] Urea nitrogen [Mass/Vol] 11 mg/dL Normal 7- [facility] Comment on above: Order Comment: Speci men Type: BLOOD SPECIMENOrdering Facility: [facility] Address: [address] [place] [address] Performed By: #### B HB, , 3039-3, 45343-7 ####[facility] LABORATORYCLIA [id number] [place] [id number] [place] ECG COMPLETEon 03-01-2023 ECG COMPLETE Ventricular Rate : 8 3 BPM Atrial Rate : 83 BPM P-R Interval : 126 ms QRS Duration : 90 ms Q-T Interval : 358 ms QTC Calculation(Bazett) : 420 ms Calculated P [place] : 5 degrees Calculated R [place] : 1 degrees Calculated T [place] : 13 degrees NORMAL SINUS RHYTHM MINIMAL VOLTAGE CRITERIA FOR LVH, MAY BE NORMAL VARIANT ( R in aVL ) NONSPECIFIC T WAVE ABNORMALITY ABNORMAL ECG NO PREVIOUS ECGS AVAILABLE Confirmed by ARABELLA SARMIENTO DO (), editorial project manager NORMAN GARVEY ([id number]) on 03/02/2023 7:20:55 AM NAME : GHISLAINE GIVENS PID : [id number] : 1990 Gender : Female Race : ORD : [id number] Procedure Date : Mar 01 2023 11:58:01 Edit Date : Mar 02 2023 07:20:56 Diagnosis: NORMAL SINUS RHYTHM MINIMAL VOLTAGE CRITERIA FOR LVH, MAY BE NORMAL VARIANT ( R in aVL ) NONSPECIFIC T WAVE ABNORMALITY ABNORMAL ECG NO PREVIOUS ECGS AVAILABLE Confirmed by ARABELLA SARMIENTO DO (), editorial project manager NORMAN GARVEY ([id number]) on 03/02/2023 7:20:55 AM Test Reason : Chest Pain Location : 1 : 1 ED Overread By : ARABELLA SARMIENTO DO Edited By : NORMAN GARVEY Referred By : , Acquired by : , [facility] ED NOTEon 03-01-2023 ED NOTE HNO ID: [id number] Author: Gayathri Bruno RN Service: ? Author Type: Registered Nurse Type: ED Notes Filed: 03/01/2023 5:12 PM Note Text: NG tube removed without complications. [facility] ED NOTE HNO ID: [id number] Author: Luzma Sen RN Service: Emergency Medicine Author Type: Registered Nurse Type: ED Notes Filed: 03/01/2023 5:05 PM Note Text: Patient crying and yelling in room to take out her NG tube. Provider aware. [facility] ED NOTE HNO ID: [id number] Author: Dewayne Gallagher RN Service: ? Author Type: Registered Nurse Type: ED Notes Filed: 03/01/2023 11:20 AM Note Text: Pt has longstanding pmh abd pain with n/v, had upper gi scope done at [facility] 02/19/23 that showed mild gastritis. Pt was in [facility] office for first visit, escorted down here by nursing staff. Pt denies diarrhea, sts too many episodes of vomiting to count, sts maybe a little when asked about hematemesis. Pt sts she hasnt smoked thc in 3 mos since all this started, sts ongoing issue for past 3 mos. [facility] ED PROV NOTEon 03-01-2023 ED PROV NOTE HNO ID: [id number] Author: Arabella Sarmiento DO Service: Emergency Medicine [...] office evaluation. 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 Vomiting too frequent to count and [...] was prescribed stool softeners and laxatives during [facility] stay however she refuses to take them because she feels they worsen abdominal pain. She was also prescribed narcotic pain medication for home which she states she has been taking. 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 Normal [facility] KETONES/ACETONE/BHBon 2022 Beta hydroxybutyrate [Moles/Vol] 0.70 mmol/L High <0.28 [facility] Comment on above: Order Comment: Speci men Type: BLOOD SPECIMENOrdering Facility: [facility] Address: [address] [place] [address] Performed By: #### B HB, 29820-4, 3040-3, 08220-5 ####[facility] LABORATORYCLIA [id number] [place] [id number] [place] Lipase SerPl-cCncon 03-01-20 23 Lipase [Catalytic activity/Vol] 57 U/L Normal 16-61 [facility] Comment on above: Order Comment: Speci men Type: BLOOD SPECIMENOrdering Facility: [facility] Address: [address] [place] [address] Performed By: #### B HB, 03294-8, 3040-3, 37313-0 ####[facility] LABORATORYCLIA [id number] [place] [address] [place] Magnesium SerPl-mCncon 03-01 Magnesium [Mass/Vol] 1.7 mg/dL Normal 1.7-2.3 [facility] Comment on above: Order Comment: Speci men Type: BLOOD SPECIMENOrdering Facility: [facility] Address: [address] [place] [address] Performed By: #### B HB, 07491-4, 3040-3, 01287-2 ####[facility] LABORATORYCLIA [id number] [place] [address] [place] TOX SCREEN ROUT URon 023 Amphetamines Confirm (U) [Mass/Vol] Negative Normal Negative [facility] Comment on above: Order Comment: Speci men Type: URINE SPECIMENOrdering Facility: [facility] Address: [address], [place] [address] Result Comment: Cuto ff threshold at 1000 ng/mL. Performed By: #### U TOX2 ####[facility] LABORATORYCLIA [id number] [place] [address] [place] BARBITURATES, URINE Negative Normal Negative [facility] Comment on above: Order Comment: Speci men Type: URINE SPECIMENOrdering Facility: [facility] Address: [address] [place] [address] Result Comment: Cuto ff threshold at 200 ng/mL. Performed By: #### U TOX2 ####[facility] LABORATORYCLIA [id number] [place] [address] [place] BENZODIAZEPINES, UR Negative Normal Negative [facility] Comment on above: Order Comment: Speci men Type: URINE SPECIMENOrdering Facility: [facility] Address: [address] [place] [address] Result Comment: Cuto ff threshold at 200 ng/mL. Performed By: #### U TOX2 ####[facility] LABORATORYCLIA [id number] [place] [address] [place] Cannabinoids Screen Ql (U) Negative Normal Negative [facility] Comment on above: Order Comment: Speci men Type: URINE SPECIMENOrdering Facility: [facility] Address: [address] [place] [address] Result Comment: Cuto ff threshold at 50 ng/mL. Performed By: #### U TOX2 ####[facility] LABORATORYCLIA [id number] [place] [address] [place] Cocaine Ql (U) Negative Normal Negative [facility] Comment on above: Order Comment: Speci men Type: URINE SPECIMENOrdering Facility: [facility] Address: [address] [place] [address] Result Comment: Cuto ff threshold at 300 ng/mL. Performed By: #### U TOX2 ####[facility] LABORATORYCLIA [id number] [place] [address] [place] Ethanol (U) [Mass/Vol] <11 Normal <11 So [facility] Comment on above: Order Comment: Speci men Type: URINE SPECIMENOrdering Facility: [facility] Address: [address] [place] [address] Performed By: #### U TOX2 ####[facility] LABORATORYCLIA [id number] [address] [place] Opiates Screen Ql (U) Positive Abnormal Negative [facility] Comment on above: Order Comment: Speci men Type: URINE SPECIMENOrdering Facility: [facility] Address: [address] [place] [address] Result Comment: Cuto ff threshold at 300 ng/mL. Performed By: #### U TOX2 ####[facility] LABORATORYCLIA [id number] [address] [place] oxyCODONE cutoff Screen (U) [Mass/Vol] Negative Normal Negative [facility] Comment on above: Order Comment: Speci men Type: URINE SPECIMENOrdering Facility: [facility] Address: [address] [place] [address] Result Comment: Cuto ff threshold at 100 ng/mL. Performed By: #### U TOX2 ####[facility] LABORATORYCLIA [id number] [address] [place] Phencyclidine Ql (U) Negative Normal Negative [facility] Comment on above: Order Comment: Speci men Type: URINE SPECIMENOrdering Facility: [facility] Address: [address] [place] [address] Result Comment: Cuto ff threshold at 25 ng/mL. Performed By: #### U TOX2 ####[facility] LABORATORYCLIA [id number] [address] [place] Urinalysis complete panel (U )on 03-01-2023 Bacteria LM.HPF (Urine sed) [#/Area] Moderate Abnormal None Seen [facility] Comment on above: Order Comment: Speci men Type: URINE SPECIMENOrdering Facility: [facility] Address: [address] [place] [address] Performed By: #### 2 4356-8 ####[facility] [place] LABORATORYCLIA [id number] [place] [address] [place] Bilirubin Ql (U) 1+ Abnormal Negative [facility] Comment on above: Order Comment: Speci men Type: URINE SPECIMENOrdering Facility: [facility] Address: [address] [place] [address] Result Comment: Sugg est correlation with clinical findings and serum bilirubin if clinically indicated. Performed By: #### 2 4356-8 ####[facility] LABORATORYCLIA [id number] [place] [address] [place] Clarity (Unsp spec) Cloudy Abnormal Clear [facility] Comment on above: Order Comment: Speci men Type: URINE SPECIMENOrdering Facility: [facility] Address: [address] [place] [address] Performed By: #### 2 4356-8 ####[facility] LABORATORYCLIA [id number] [place] [address] [place] Color (U) Yellow Normal Yellow [facility] Comment on above: Order Comment: Speci men Type: URINE SPECIMENOrdering Facility: [facility] Address: [address] [place] [address] Performed By: #### 2 4356-8 ####[facility] LABORATORYCLIA [id number] [address] [place] Epithelial cells LM.HPF (Urine sed) [#/Area] Many Normal [facility] Comment on above: Order Comment: Speci men Type: URINE SPECIMENOrdering Facility: [facility] Address: [address] [place] [address] Result Comment: Few Performed By: #### 2 4356-8 ####[facility] LABORATORYCLIA [id number] [address] [place] Glucose Test strip (U) [Mass/Vol] Trace Abnormal Negative [facility] Comment on above: Order Comment: Speci men Type: URINE SPECIMENOrdering Facility: [facility] Address: [address] [place] [address] Performed By: #### 2 4356-8 ####[facility] LABORATORYCLIA [id number] [place] [address] [place] Hemoglobin Ql (U) Negative Normal Negative, Trace [facility] Comment on above: Order Comment: Speci men Type: URINE SPECIMENOrdering Facility: [facility] Address: [address] [address] Performed By: #### 2 4356-8 ####[facility] LABORATORYCLIA [id number] [place] [address] [place] Hyaline casts (Urine sed) [#/Area] 1-3 /LPF Abnormal 0 /LPF [facility] Comment on above: Order Comment: Speci men Type: URINE SPECIMENOrdering Facility: [facility] Address: [address] [place] [address] Performed By: #### 2 4356-8 ####[facility] LABORATORYCLIA [id number] [address] [place] Ketones Ql (U) Trace Abnormal Negative [facility] Comment on above: Order Comment: Speci men Type: URINE SPECIMENOrdering Facility: [facility] Address: [address] [place] [address] Performed By: #### 2 4356-8 ####[facility] LABORATORYCLIA [id number] [address] [place] Leukocyte esterase Test strip Ql (U) Negative Normal Negative [facility] Comment on above: Order Comment: Speci men Type: URINE SPECIMENOrdering Facility: [facility] Address: [address] [address] Performed By: #### 2 4356-8 ####[facility] LABORATORYCLIA [id number] [address] [place] Nitrite Ql (U) Negative Normal Negative [facility] Comment on above: Order Comment: Speci men Type: URINE SPECIMENOrdering Facility: [facility] Address: [address] [address] Performed By: #### 2 4356-8 ####[facility] LABORATORYCLIA [id number] [place] [address] [place] pH (U) 5.5 [pH] Normal 5.0-8.0 [facility] Comment on above: Order Comment: Speci men Type: URINE SPECIMENOrdering Facility: [facility] Address: [address] [place] [address] Performed By: #### 2 4356-8 ####[facility] LABORATORYCLIA [id number] [place] [address] [place] Protein (U) [Mass/Vol] 2+ Abnormal Negative So [facility] Comment on above: Order Comment: Speci men Type: URINE SPECIMENOrdering Facility: [facility] Address: [address] [place] [address] Performed By: #### 2 4356-8 ####[facility] LABORATORYCLIA [id number] [place] [address] [place] RBC LM.HPF (Urine sed) [#/Area] 0-3 /HPF Normal 0-3 /HPF [facility] Comment on above: Order Comment: Speci men Type: URINE SPECIMENOrdering Facility: [facility] Address: [address] [place] [address] Performed By: #### 2 4356-8 ####[facility] CENTERCLIA [id number] [place] [address] [place] Specific gravity (U) [Rel density] >=1.030 High 1.005-1.030 [facility] Comment on above: Order Comment: Speci men Type: URINE SPECIMENOrdering Facility: [facility] Address: [address] [place] [address] Performed By: #### 2 4356-8 ####[facility] LABORATORYCLIA [id number] [address] [place] Urobilinogen Ql (U) 1.0 EU/dL Normal 0.2-1.0 EU/dL [facility] Comment on above: Order Comment: Speci men Type: URINE SPECIMENOrdering Facility: [facility] Address: [address] [address] Performed By: #### 2 4356-8 ####[facility] LABORATORYCLIA [id number] [place] [id number] [place] WBC LM.HPF (Urine sed) [#/Area] 0-5 /HPF Normal 0-5 /HPF [facility] Comment on above: Order Comment: Speci men Type: URINE SPECIMENOrdering Facility: [facility] Address: [address] [address] Performed By: #### 2 4356-8 ####[facility] LABORATORYCLIA [id number] [place] [id number] [place] [facility] Absolute lymphocyte countOrd ered By: Perico Norman on 02-26-2023 Lymphocytes Auto (Unsp spec) [#/Vol] 2.45 10*3/uL 0.83-4.51 [facility] Basophil percentageOrdered B y: Perico Norman on 02-26-2023 Basophil percentage 0-5 SEEN /hpf 0-5 [facility] Basophil percentage 271 mg/dL 74-106 [facility] Basophil percentage 9.3 g/dL 6.4-8.2 [facility] Basophil percentage 0.80 mg/dL 0.20-1.00 [facility] Basophil percentage 131 mmol/L 136-145 [facility] Basophil percentage 3.4 mmol/L 3.5-5.1 [facility] Basophil percentage 98 mmol/L 98-107 [facility] Basophils (Bld) [#/Vol] 16.2 10*3/uL 4.4-11.0 [facility] Basophils (Bld) [#/Vol] 12.3 10*3/uL 2.0-7.7 [facility] Basophils/100 WBC (Bld) 75.8 % 47-[address] [facility] Basophils/100 WBC (Bld) 0.1 % 0-[address] [facility] Basophils/100 WBC (Bld) 0.4 % 0-[address] [facility] Bilirubin [Mass/Vol] 0.80 mg/dL 0.20-1.00 [facility] Comment on above: For patients on eltr ombopag therapy, use of Dimension [place] TBIL is not recommended. Chloride [Moles/Vol] 98 mmol/L 98-107 [facility] Eosinophils/100 WBC (Bld) 0.1 % 0-5 [facility] Glucose [Mass/Vol] 271 mg/dL 74-106 [facility] Comment on above: Glucose result great er than or equal to 200 mg/dLsuggests DIABETES MELLITUS per A.D.A. criteria. Neutrophils (Bld) [#/Vol] 12.3 10*3/uL 2.0-7.7 [facility] Neutrophils/100 WBC (Bld) 75.8 % 47-70 [facility] Potassium [Moles/Vol] 3.4 mmol/L 3.5-5.1 [facility] Protein [Mass/Vol] 9.3 g/dL 6.4-8.2 [facility] Sodium [Moles/Vol] 131 mmol/L 136-145 [facility] WBC (Bld) [#/Vol] 16.2 10*3/uL 4.4-11.0 [facility] Beta hCG serum qualOrdered B y: Perico Norman on 02-26-2023 Beta HCG ( test) Ql Negative [facility] Bilirubin Test strip Ql (U)O rdered By: Perico Norman on 02-26-2023 Bilirubin Ql (U) Negative Negative [facility] Blood erythrocytes count (nu mber/volume)Ordered By: Perico Norman on 02-26-2023 RBC (Bld) [#/Vol] 4.97 10*6/uL 4.2-5.4 [facility] Blood hemoglobin measurement (mass/volume)Ordered By: Perico Norman on 02-26-2023 Hemoglobin (Bld) [Mass/Vol] 13.3 g/dL 12.0-15.0 [facility] Blood lymphocytes/100 leukoc ytesOrdered By: Perico Norman on 02-26-2023 Lymphocytes/100 WBC (Bld) 15.1 % 19-41 [facility] Blood monocytes/100 leukocyt esOrdered By: Perico Norman on 02-26-2023 Monocytes/100 WBC (Bld) 8.0 % 0-[address] [facility] Blood platelet mean volumeOr dered By: Perico Norman on 02-26-2023 Platelet mean volume (Bld) [Entitic vol] 9.1 fL 6.2-12.0 [facility] Determination of erythrocyte mean corpuscular volume (MCV)Ordered By: Perico Norman on 02-26-2023 MCV (RBC) [Entitic vol] 80.9 fL 81-[address] [facility] Direct bilirubinOrdered By: Perico Norman on 02-26-2023 Bilirubin.direct [Mass/Vol] 0.22 mg/dL 0.00-0.30 [facility] Hematocrit Auto (Bld) [Volum e fraction]Ordered By: Perico Norman on 02-26-2023 Hematocrit (Bld) [Volume fraction] 40.2 % 37-47 [facility] Ketones Test strip Ql (U)Ord ered By: Perico Norman on 02-26-2023 Ketones Ql (U) 15 mg/dl Negative [facility] Laboratory - Chemistry and C hemistry - challengeOrdered By: Perico Norman on 02-26-2023 ALP [Catalytic activity/Vol] 108 U/L 45-117 [facility] ALT [Catalytic activity/Vol] 17 U/L 13-56 [facility] CO2 [Moles/Vol] 22.0 mmol/L 21.0-32.0 [facility] Globulin (S) [Mass/Vol] 5.7 g/dL 2.2-4.[address] [facility] Lipase [Catalytic activity/Vol] 64 U/L 13-75 [facility] Comment on above: Please note:LIPASE r evised reference range effective 22. New Lipase methodology. Expected to produce lower values than the previous assay method. NEW Reference Range: 13 - 75 U/L Magnesium [Mass/Vol] 2.0 mg/dL 1.6-2.6 [facility] Urea nitrogen/Creatinine [Mass ratio] 13.2 mg/mg 10-20 [facility] Laboratory - Hematology and Cell countsOrdered By: Perico Norman on 02-26-2023 Erythrocyte distribution width (RBC) [Entitic vol] 38.7 fL 35.1-43.9 [facility] Erythrocyte distribution width (RBC) [Ratio] 13.2 % 11.6-14.6 [facility] Immature granulocytes/100 WBC (Bld) 0.600 % 0.0-0.9 [facility] Comment on above: IG% - Immature Granu locytes (promyelocytes, myelocytes and metamyelocytes) > 1% indicates that a LEFT SHIFT is Present. MCH (RBC) [Entitic mass] 26.8 pg 27.0-32.0 [facility] Nucleated RBC/100 WBC (Bld) [Ratio] 0 % 0-5 [facility] MCHC Auto (RBC) [Mass/Vol]Or dered By: Perico Norman on 02-26-2023 MCHC (RBC) [Mass/Vol] 33.1 g/dL 32-36 [facility] Mucus LM Ql (Urine sed)Order ed By: Perico Norman on 02-26-2023 Mucus Ql (Urine sed) 0 SEEN /hpf [facility] Nitrite Test strip Ql (U)Ord ered By: Perico Norman on 02-26-2023 Nitrite Ql (U) Negative Negative [facility] No Panel InformationOrdered By: Perico Norman on 02-26-2023 Urine Transitional Epithelial Cells 0-5 SEEN /hpf 0-5 [facility] 0-5 SEEN /hpf 0-5 [facility] Estimated Creatinine Clearance Calc 50.20 ml/min [facility] Estimated GFR (MDRD) Amer 51 mL/min >60 [facility] Comment on above: GFR Calc Estimated GFR (MDRD) Non-Af Amer 42 mL/min >60 [facility] Comment on above: Non- GFR Calc 26.8 pg 27.0-32.0 [facility] 13.2 % 11.6-14.6 [facility] 38.7 fl 35.1-43.9 [facility] 0.600 % 0.0-0.9 [facility] 0 % 0-5 [facility] 42 mL/min >60 [facility] 51 mL/min >60 [facility] 50.20 ml/min [facility] 13.2 RATIO 10-20 [facility] 5.7 g/dL 2.2-4.2 [facility] 64 U/L 13-75 [facility] 108 U/L 45-117 [facility] 17 U/L 13-56 [facility] 2.0 mg/dL 1.6-2.6 [facility] 22.0 mmol/L 21.0-32.0 [facility] Platelets bldOrdered By: Bakari Norman on 02-26-2023 Platelets (Bld) [#/Vol] 483 10*3/uL 150-450 [facility] Protein Test strip Ql (U)Ord ered By: Perico Norman on 02-26-2023 Protein Ql (U) 30 mg/dl Negative [facility] Serum or plasma albumin hussein urement (mass/volume)Ordered By: Perico Norman on 02-26-2023 Albumin [Mass/Vol] 3.6 g/dL 3.2-5.0 [facility] Serum or plasma calcium hussein urement (mass/volume)Ordered By: Perico Norman on 02-26-2023 Calcium [Mass/Vol] 9.8 mg/dL 8.5-10.1 [facility] Serum or plasma creatinine m easurement (mass/volume)Ordered By: Perico Norman on 02-26-2023 Creatinine [Mass/Vol] 1.52 mg/dL 0.55-1.02 [facility] Comment on above: The validity of the calculated GFR & GFRAA in patients over 70 years has not been determined. Clinical correlation is essential. Serum or plasma urea nitroge n measurement (mass/volume)Ordered By: Perico Norman on 02-26-2023 Urea nitrogen [Mass/Vol] 20 mg/dL -18 [facility] Squamous epithelial cells de tection in urine sediment by light microscopyOrdered By: Perico Norman on 02-26-2023 Epithelial cells.squamous LM Ql (Urine sed) 0-5 SEEN /hpf 5-10 [facility] Thin prep Papanicolaou smear with manual screeningOrdered By: Perico Norman on 02-26-2023 Thin prep Papanicolaou smear with manual screening 12 U/L 15-37 [facility] Thin prep Papanicolaou smear with manual screening 11 5-15 [facility] Urine blood detectionOrdered By: Perico Norman on 02-26-2023 RBC Ql (U) 10 /ul Negative [facility] RBC Ql (U) 0 SEEN /hpf 0-5 [facility] Urine clarityOrdered By: Bakari Norman on 02-26-2023 Clarity (U) Clear Clear [facility] Urine color determinationOrd ered By: Perico Norman on 02-26-2023 Color (U) Yellow Yellow [facility] Urine glucose detectionOrder ed By: Perico Norman on 02-26-2023 Glucose Ql (U) 100 mg/dl Normal [facility] Urine leukocyte esterase det ection by dipstickOrdered By: Perico Norman on 02-26-2023 Leukocyte esterase Test strip Ql (U) 25 /ul Negative [facility] Urine pHOrdered By: Perico hernandez on 02-26-2023 pH (U) 5.0 [pH] 5.0 - 8.0 [facility] Urine sediment bacteria coun t by microscopy (number/high power field)Ordered By: Perico Norman on 02-26-2023 Bacteria LM.HPF (Urine sed) [#/Area] RARE /hpf None Seen [facility] Urine specific gravity measu rementOrdered By: Perico Norman on 02-26-2023 Specific gravity (U) [Rel density] 1.020 1.002-1.030 [facility] Urobilinogen Auto test strip Ql (U)Ordered By: Perico Norman on 02-26-2023 Urobilinogen Ql (U) Normal mg/dl Normal [facility] CBC + DIFFon 02-17-2023 Baso # 0.00 x10EE3/UL Normal 0.00 - 0.10 [facility] Comment on above: Performed By: #### 2 97780 #### [facility],[address] [place] [address] Basophils/100 WBC (Bld) 0.4 % Normal 0.0 - 2.0 [facility] Comment on above: Performed By: #### 2 97022 #### [address] [address] CBC + DIFF Normal [facility] Comment on above: Result Comment: CBC- COMPLETE BLOOD COUNT Performed By: #### 2 53919 #### [place] [address] EO # 0.00 x10EE3/UL Normal 0.00 - 0.50 [facility] Comment on above: Performed By: #### 2 98550 #### [place] [address] Eosinophils/100 WBC (Bld) 0.2 % Normal 0.0 - 7.0 [facility] Comment on above: Performed By: #### 2 00121 #### [place] [address] Erythrocyte distribution width (RBC) [Ratio] 15.1 % Normal 12.0 - 15.6 [facility] Comment on above: Performed By: #### 2 42679 #### [place] [address] Hematocrit (Bld) [Volume fraction] 39.7 % Normal 34.0 - 46.0 [facility] Comment on above: Performed By: #### 2 44503 #### [place] [address] Hemoglobin (Bld) [Mass/Vol] 13.3 g/dL Normal 12.0 - 16.0 [facility] Comment on above: Performed By: #### 2 08020 #### [place] [id number] Lymph # 3.30 x10EE3/UL High 0.80 - 2.80 [facility] Comment on above: Performed By: #### 2 97412 #### [place] [address] Lymphocytes/100 WBC (Bld) 30.5 % Normal 20.0 - 45.0 [facility] Comment on above: Performed By: #### 2 54142 #### [address],[place] [address] MANUAL DIFF N/A Normal [facility] Comment on above: Performed By: #### 2 67753 #### [facility],[address] [place] [address] MCH (RBC) [Entitic mass] 27 pg Normal 27 - 33 [facility] Comment on above: Performed By: #### 2 14844 #### [facility],[address] [place] [address] MCHC 33 X10 3 Normal 32 - 36 [facility] Comment on above: Performed By: #### 2 16557 #### [facility],[address] [place] [address] MCV (RBC) [Entitic vol] 80 fL Normal 80 - 99 [facility] Comment on above: Performed By: #### 2 76885 #### [facility],[address] [place] [address] Wilcox # 0.60 x10EE3/UL Normal 0.20 - 1.00 [facility] Comment on above: Performed By: #### 2 60638 #### [facility],[address] [place] [address] MONOS % 5.9 % Normal 0.0 - 10.0 [facility] Comment on above: Performed By: #### 2 24680 #### [facility],[address] [place] [address] Morphology Franky (Bld) [Interp] N/A Normal [facility] Comment on above: Result Comment: {CD] Performed By: #### 2 61580 #### [place] [address] Neut # 6.90 x10EE3/UL Normal 1.50 - 7.10 [facility] Comment on above: Performed By: #### 2 13186 #### [place] [address] Neutrophils/100 WBC (Bld) 63.0 % Normal 46.0 - 76.0 [facility] Comment on above: Performed By: #### 2 21939 #### [facility],[address] [place] [address]168 PLATELET 561 x10EE3/UL High 150 - 450 [facility] Comment on above: Performed By: #### 2 68195 #### [facility],[address] [place] [address]83 Platelet mean volume (Bld) [Entitic vol] 7.6 fL Normal 6.6 - 10.5 [facility] Comment on above: Result Comment: AUTO MATED DIFFERENTIAL Performed By: #### 2 24790 #### [facility],[address] [place] [address]913 RBC 4.95 x 10EE6/UL Normal 4.10 - 5.30 [facility] Comment on above: Performed By: #### 2 50888 #### [facility],[address] [place] [address]502 WBC 10.9 x 10EE3/UL High 4.5 - 10.8 [facility] Comment on above: Performed By: #### 2 52102 #### [facility],[address] [place] [address]7967 CMP with eGFRon 02-17-2023 AGE 33 years Normal [facility] Comment on above: Performed By: #### 2 66962 #### [facility],[address] [place] [address] 33383 Albumin [Mass/Vol] 3.5 g/dL Normal 3.4 - 5.0 [facility] Comment on above: Performed By: #### 2 20831 #### [facility],[address] [place] [address] Albumin/Globulin [Mass ratio] 0.6 {ratio} Low 0.9 - 1.6 [facility] Comment on above: Performed By: #### 2 13996 #### [facility],[address] [place] [address] ALK PHOS 112 U/L Normal 46 - 116 [facility] Comment on above: Performed By: #### 2 37867 #### [facility],[address] [place] [address]997 ALT [Catalytic activity/Vol] 28 U/L Normal 14 - 59 [facility] Comment on above: Performed By: #### 2 91693 #### [facility],[address] [place] [address] 72038 Anion gap [Moles/Vol] 21 mmol/L High 10 - 20 [facility] Comment on above: Performed By: #### 2 29732 #### [facility],[address] [place] [address] 87222 AST [Catalytic activity/Vol] 13 U/L Normal 13 - 39 [facility] Comment on above: Performed By: #### 2 84726 #### [facility],[address] [place] [address] 53879 B/C RATIO 12 ratio Normal 0 - 30 [facility] Comment on above: Performed By: #### 2 53212 #### [facility],[address] [place] [address] 58796 Bilirubin [Mass/Vol] 0.6 mg/dL Normal 0.2 - 1.0 [facility] Comment on above: Performed By: #### 2 06536 #### [facility],[address] [place] [address] 38874 Calcium [Mass/Vol] 9.6 mg/dL Normal 8.5 - 10.1 [facility] Comment on above: Performed By: #### 2 15042 #### [facility],[address] [place] [address]502 Chloride [Moles/Vol] 94 mmol/L Low 98 - 107 [facility] Comment on above: Performed By: #### 2 54447 #### [facility],[address] [place] [address] 51148 CMP with eGFR Normal [facility] Comment on above: Result Comment: COMP REHENSIVE METABOLIC PANEL Performed By: #### 2 47710 #### [facility],[address] [place] [address] 16526 CO2 [Moles/Vol] 23.7 mmol/L Normal 21.0 - 32.0 [facility] Comment on above: Performed By: #### 2 63223 #### [facility],[address] [place] [address] Creatinine [Mass/Vol] 1.18 mg/dL High 0.55 - 1.02 [facility] Comment on above: Performed By: #### 2 92398 #### [facility],[address] [place] [address] eGFR 53 ML/MINUTE Low 60 - 999 [facility] Comment on above: Performed By: #### 2 57875 #### [facility],[address] [place] [address] 31175 GFR/1.73 sq M.predicted among non-blacks MDRD (S/P/Bld) [Vol rate/Area] mL/min/{1.73_m2} Normal 60 - 999 [facility] Comment on above: Result Comment: ACCO RDING TO THE NATIONAL KIDNEY DISEASE EDUCATION PROGRAM(NKDE), A NORMAL eGFR IS A VALUE GREATER THAN OR EQUAL TO 60 ML/MIN/1.73 SQ METERS. CHRONIC KIDNEY DISEASE: <60mL/MIN/1.73 SQ METERS KIDNEY FAILURE: <15mL/MIN/1.73 SQ METERS THIS TEST SHOULD ONLY BE USED FOR PATIENTS 18 YEARS OF AGE AND OLDER. Performed By: #### 2 [id number] #### [facility],[address] [place] [address] 69357 Globulin (S) [Mass/Vol] 5.4 g/dL High 1.5 - 3.8 [facility] Comment on above: Performed By: #### 2 83745 #### [facility],[address] [place] [address] 82090 Glucose [Mass/Vol] 306 mg/dL High 74 - 106 [facility] Comment on above: Performed By: #### 2 86471 #### [facility],[address] [place] [address] 87200 Potassium [Moles/Vol] 3.9 mmol/L Normal 3.5 - 5.1 [facility] Comment on above: Performed By: #### 2 70757 #### [facility],[address] [place] [address] 71785 Protein [Mass/Vol] 8.9 g/dL High 6.4 - 8.2 [facility] Comment on above: Performed By: #### 2 66956 #### [facility],[address] [place] [address] Sodium [Moles/Vol] 135 mmol/L Low 136 - 145 [facility] Comment on above: Performed By: #### 2 64259 #### [facility],[address] [place], [place] [id number] Urea nitrogen [Mass/Vol] 14 mg/dL Normal 7 - 18 [facility] Comment on above: Performed By: #### 2 00737 #### [facility],[address] [place] [address] 05900 DRUG SCREEN URINE MEDICon AMPHETAMINES Negative Normal [facility] Comment on above: Performed By: #### 2 24263 #### [facility],[address] [place] [address] 92070 B-DIAZEPINES Negative Normal [facility] Comment on above: Performed By: #### 2 29403 #### [facility],[address] [place] [address] 88334 BARBITURATES Negative Normal [facility] Comment on above: Performed By: #### 2 03553 #### [facility],[address] [place] [address] 06025 COCAINE Negative Normal [facility] Comment on above: Performed By: #### 2 71841 #### [facility],[address] [place] [address] DRUG SCREEN URINE MEDIC Normal [facility] Comment on above: Result Comment: DRUG SCREEN - URINE Performed By: #### 2 57991 #### [facility],[address] [place], [place] [id number] METHADONE Negative Normal [facility] Comment on above: Performed By: #### 2 35445 #### [facility],[address] [place] [address] OPIATES Negative Normal [facility] Comment on above: Performed By: #### 2 97667 #### [facility],[address] [place] [address] PCP Negative Normal [facility] Comment on above: Performed By: #### 2 48713 #### [facility],[address] [place] [address] THC Negative Normal [facility] Comment on above: Result Comment: ERASTO ENTS RECEIVING PROTON PUMP INHIBITORS MAY DEMONSTRATE FALSE POSITIVE THC/CANNABINOID RESULTS. AN ALTERNATIVE CONFIRMATORY METHOD SHOULD BE CONSIDERED TO VERIFY POSITIVE RESULTS. Performed By: #### 2 03969 #### [facility],[address] [place], [place] [id number] LIPASEon 02-17-2023 Lipase [Catalytic activity/Vol] 103.0 U/L Normal 73.0 - 393 [facility] Comment on above: Performed By: #### 2 82782 #### [facility],[address] [place], [place] [id number] URINEon 02-17-2023 Beta HCG ( test) Ql (U) Negative Normal NEGATIVE [facility] Comment on above: Performed By: #### 2 48469 #### [facility],[address] [place] [address] EXTERNAL QC DONE? YES Normal [facility] Comment on above: Performed By: #### 2 38689 #### [facility],[address] [place], [place] [id number] INTERNAL QC PASS Normal [facility] Comment on above: Performed By: #### 2 51708 #### [facility],[address] [place] [address]22 URINALYSISon 02-17-2023 Amorphous NONE Normal [facility] Comment on above: Performed By: #### 2 43767 #### [facility],[address] [place], [place] [id number] Bacteria TRACE Normal [facility] Comment on above: Performed By: #### 2 98670 #### [facility],[address] [place], [place] [id number] Bilirubin Ql (U) Negative Normal NORMAL: NEGATIVE [facility] Comment on above: Performed By: #### 2 27273 #### [facility],[address] [place] [address] Casts NONE Normal [facility] Comment on above: Performed By: #### 2 28087 #### [facility],[address] [place], [place] [id number] Clarity (U) sl.cloudy Normal NORMAL: CLEAR [facility] Comment on above: Performed By: #### 2 53407 #### [facility],[address] [place] [address] 14587 Color (U) jaqui Normal NORMAL: YELLOW [facility] Comment on above: Performed By: #### 2 52679 #### [facility],[address] [place] [address] 67627 Crystals LM Nom (Urine sed) NONE Normal [facility] Comment on above: Performed By: #### 2 77881 #### [facility],[address] [place] [address] 78616 Epi Cells FEW Normal [facility] Comment on above: Performed By: #### 2 28192 #### [facility],[address] [place] [address] 58575 Glucose Ql (U) 250 Abnormal NORMAL: NORMAL [facility] Comment on above: Performed By: #### 2 27082 #### [facility],[address] [place] [address] 49340 Hemoglobin Ql (U) Negative Normal NORMAL: NEGATIVE [facility] Comment on above: Performed By: #### 2 00551 #### [facility],[address] [place] [address] 29169 Ketone 150 Abnormal NORMAL: NEGATIVE [facility] Comment on above: Performed By: #### 2 91109 #### [facility],[address] [place] [address] 51421 Leukocytes 25 Abnormal NORMAL: NEGATIVE [facility] Comment on above: Performed By: #### 2 48986 #### [facility],[address] [place] [address] 98797 Mucous NONE Normal [facility] Comment on above: Performed By: #### 2 39633 #### [facility],[address] [place] [address] 04447 Nitrite Ql (U) Negative Normal NORMAL: NEGATIVE [facility] Comment on above: Performed By: #### 2 74855 #### [facility],[address] [place] [address] 88943 pH (U) 8 [pH] Normal NORMAL: 5.0-8.0 [facility] Comment on above: Performed By: #### 2 73369 #### [facility],[address] [place] [address] 36630 Protein Ql (U) 30 Abnormal NORMAL: NEGATIVE [facility] Comment on above: Performed By: #### 2 73764 #### [facility],[address] [place] [address] 90653 Rbc NONE Normal 0-3/hpf [facility] Comment on above: Performed By: #### 2 41003 #### [facility],[address] [place] [address] 96394 Sp [place] 1.010 Normal NORMAL: 1.010-1.030 [facility] Comment on above: Performed By: #### 2 84371 #### [facility],[address] [place] [address] Specimen Type UNSPECIFIED Normal [facility] Comment on above: Performed By: #### 2 97462 #### [facility],[address] [place] [address] Urinalysis dipstick W Reflex Microscopic panel (U) SEE BELOW Normal [facility] Comment on above: Result Comment: MICR OSCOPIC Performed By: #### 2 46211 #### [facility],[address] [place] [address] Urobilinog NORM Normal NORMAL: NORMAL [facility] Comment on above: Performed By: #### 2 17987 #### [facility],[address] [place] [address] Wbc 1-5 Normal 0-5/hpf [facility] Comment on above: Performed By: #### 2 69083 #### [facility],[address] [place] [address] Yeast NONE Normal [facility] Comment on above: Performed By: #### 2 41134 #### [facility],[address] [place] [address] .Auto Diffon 02-11-2023 Basophil, Absolute 0.1 10 3/mcL Normal 0.0-0.2 [facility] ([place]) Comment on above: Performed By: #### A DIFF, GFR, MDW, CMP, ANEU, CBC, LIP #### [address] [address] Basophils/100 WBC (Bld) 0.5 % Normal 0.0-2.5 [facility] ([place]) Comment on above: Performed By: #### A DIFF, GFR, MDW, CMP, ANEU, CBC, LIP #### [address] [address] Eosinophil, Absolute 0.0 10 3/mcL Normal 0.0-0.4 [facility] ([place]) Comment on above: Performed By: #### A DIFF, GFR, MDW, CMP, ANEU, CBC, LIP #### [address] [address] Eosinophils/100 WBC (Bld) 0.2 % Normal 0.0-7.0 [facility] ([place]) Comment on above: Performed By: #### A DIFF, GFR, MDW, CMP, ANEU, CBC, LIP #### [address] [address] Lymphocyte, Absolute 4.2 10 3/mcL High 0.8-3.9 [facility] ([place]) Comment on above: Performed By: #### A DIFF, GFR, MDW, CMP, ANEU, CBC, LIP #### [address] [address] Lymphocytes/100 WBC (Bld) 32.7 % Normal 10.0-50.0 [facility] ([place]) Comment on above: Performed By: #### A DIFF, GFR, MDW, CMP, ANEU, CBC, LIP #### [address] [address] Monocyte, Absolute 0.9 10 3/mcL Normal 0.2-1.0 [facility] ([place] Comment on above: Performed By: #### A DIFF, GFR, MDW, CMP, ANEU, CBC, LIP #### [address] [address] Monocytes/100 WBC (Bld) 7.0 % Normal 1.7-13.0 [facility] ([place]) Comment on above: Performed By: #### A DIFF, GFR, MDW, CMP, ANEU, CBC, LIP #### [address] [address] Neutrophils/100 WBC (Bld) 59.6 % Normal 37.0-80.0 [facility] ([place]) Comment on above: Performed By: #### A DIFF, GFR, MDW, CMP, ANEU, CBC, LIP #### [address] [address] Basophil, Absolute 0.1 10 3/mcL Normal 0.0-0.2 [facility] ([place] Comment on above: Performed By: #### C MP, GFR, CBC, LIP, ADIFF, ANEUALDAIR #### [address] [address] Basophils/100 WBC (Bld) 0.6 % Normal 0.0-2.5 [facility] ([place]) Comment on above: Performed By: #### C MP, GFR, CBC, LIP, ADIFF, ANEUALDAIR #### [address] [address] Eosinophil, Absolute 0.0 10 3/mcL Normal 0.0-0.4 [facility] ([place] Comment on above: Performed By: #### C MP, GFR, CBC, LIP, ADIFF, ANEUALDAIR #### [address] [address] Eosinophils/100 WBC (Bld) 0.1 % Normal 0.0-7.0 [facility] ([place] Comment on above: Performed By: #### C MP, GFR, CBC, LIP, ADIFF, ALDAIR MERRILL #### [address] [address] Lymphocyte, Absolute 4.2 10 3/mcL High 0.8-3.9 [facility] ([place]) Comment on above: Performed By: #### C MP, GFR, CBC, LIP, ADIFF, ALDAIR MERRILL #### [address] [address] Lymphocytes/100 WBC (Bld) 26.5 % Normal 10.0-50.0 [facility] ([place] Comment on above: Performed By: #### C MP, GFR, CBC, LIP, ADIFF, ANEUALDAIR #### [address] [address] Monocyte, Absolute 1.0 10 3/mcL Normal 0.2-1.0 [facility] ([place]) Comment on above: Performed By: #### C MP, GFR, CBC, LIP, ADIFF, ANEU, MDW #### [address] [address] Monocytes/100 WBC (Bld) 6.1 % Normal 1.7-13.0 [facility] ([place]) Comment on above: Performed By: #### C MP, GFR, CBC, LIP, ADIFF, ANEU, MDW #### [address] [address] Neutrophils/100 WBC (Bld) 66.7 % Normal 37.0-80.0 [facility] ([place]) Comment on above: Performed By: #### C MP, GFR, CBC, LIP, ADIFF, DESIRAE, MDW #### [address] [address] .GFRon 02-11-2023 GFR 63 ml/min/1.73sqm Normal [facility] ([place]) Comment on above: Result Comment: GFR [...] GFR, MDW, CMP, ANEU, CBC, LIP #### [address] [address] GFR Non- 52 ml/min/1.73sqm Normal [facility] ([place]) Comment on above: Result Comment: GFR [...] GFR, MDW, CMP, ANEU, CBC, LIP #### [address] [address] GFR Non- 42 ml/min/1.73sqm Normal [facility] ([place]) Comment on above: Result Comment: GFR Population [...] GFR, MDW, CMP, ANEU, CBC, LIP #### [address] [address] GFR 51 ml/min/1.73sqm Normal [facility] ([place]) Comment on above: Result Comment: GFR Population [...] GFR, MDW, CMP, ANEU, CBC, LIP #### [address] [address] .MDWon 02-11-2023 Monocyte Distribution Width 19.69 Normal 0.00-20.00 [facility] ([place]) Comment on above: Result Comment: For ED adult patients suspected of sepsis, MDW<=20.0 does not rule out sepsis or risk of sepsis Performed By: #### A DIFF, GFR, MDW, CMP, ANEU, CBC, LIP #### [place] [address] .NEUABSon 02-11-2023 Neutrophil, Absolute 7.6 10 3/mcL High 2.9-6.2 [facility] ([place]) Comment on above: Performed By: #### A DIFF, GFR, MDW, CMP, ANEU, CBC, LIP #### [place] [address] Neutrophil, Absolute 10.5 10 3/mcL High 2.9-6.2 [facility] ([place] Comment on above: Performed By: #### C MP, GFR, CBC, LIP, ADIFF, ANEU, MDW #### [address] [address] .Urinalysis Microscopic (AO) on 02-11-2023 UA Bacteria Trace Abnormal [facility] ([place]) Comment on above: Performed By: #### A DIFF, GFR, MDW, CMP, ANEU, CBC, LIP #### [address] [address] UA RBC None Seen Normal None Seen [facility] ([place] Comment on above: Performed By: #### A DIFF, GFR, MDW, CMP, ANEU, CBC, LIP #### [address] [address] UA Squam Epithelial 0-5 Abnormal None Seen [facility] ([place]) Comment on above: Performed By: #### A DIFF, GFR, MDW, CMP, ANEU, CBC, LIP #### [address] [address] UA WBC 0-5 Abnormal None Seen [facility] ([place] Comment on above: Performed By: #### A DIFF, GFR, MDW, CMP, ANEU, CBC, LIP #### [address] [address] A1Con 02-11-2023 HbA1c (Bld) [Mass fraction] 9.0 % High 4.3-6.4 [facility] ([place] Comment on above: Performed By: #### A DIFF, GFR, MDW, CMP, ANEU, CBC, LIP #### [place] [address] CBCon 02-11-2023 Erythrocyte distribution width (RBC) [Ratio] 14.8 % High 11.5-14.5 [facility] ([place] Comment on above: Performed By: #### A DIFF, GFR, MDW, CMP, ANEU, CBC, LIP #### [place] [address] Hematocrit (Bld) [Volume fraction] 34.6 % Low 37.0-47.0 [facility] ([place] Comment on above: Performed By: #### A DIFF, GFR, MDW, CMP, ANEU, CBC, LIP #### [address] [address] Hgb 11.5 G/dL Low 12.0-16.0 [facility] ([place] Comment on above: Performed By: #### A DIFF, GFR, MDW, CMP, ANEU, CBC, LIP #### [address] [address] MCH (RBC) [Entitic mass] 26.6 pg Low 27.0-31.2 [facility] ([place] Comment on above: Performed By: #### A DIFF, GFR, MDW, CMP, ANEU, CBC, LIP #### [place] [id number] MCHC 33.3 G/dL Normal 33.0-37.0 [facility] ([place] Comment on above: Performed By: #### A DIFF, GFR, MDW, CMP, ANEU, CBC, LIP #### [address] [address] MCV (RBC) [Entitic vol] 80.0 fL Normal 80.0-94.0 [facility] ([place] Comment on above: Performed By: #### A DIFF, GFR, MDW, CMP, ANEU, CBC, LIP #### [address] [address] Platelet 332 10 3/mcL Normal 130-400 [facility] ([place] Comment on above: Performed By: #### A DIFF, GFR, MDW, CMP, ANEU, CBC, LIP #### [address] [address] Platelet mean volume (Bld) [Entitic vol] 7.5 fL Normal 7.4-10.4 [facility] ([place] Comment on above: Performed By: #### A DIFF, GFR, MDW, CMP, ANEU, CBC, LIP #### [address] [address] RBC 4.33 10 6/mcL Normal 4.20-5.40 [facility] ([place] Comment on above: Performed By: #### A DIFF, GFR, MDW, CMP, ANEU, CBC, LIP #### [address] [address] WBC 12.7 10 3/mcL High 4.6-10.8 [facility] ([place] Comment on above: Performed By: #### A DIFF, GFR, MDW, CMP, ANEU, CBC, LIP #### [address] [address] Erythrocyte distribution width (RBC) [Ratio] 14.9 % High 11.5-14.5 [facility] ([place] Comment on above: Performed By: #### C MP, GFR, CBC, LIP, ADIFF, ANEU, MDW #### [address] [address] Hematocrit (Bld) [Volume fraction] 38.8 % Normal 37.0-47.0 [facility] ([place] Comment on above: Performed By: #### C MP, GFR, CBC, MELISSA MELGAR ANEU, MDW #### [address] [address] Hgb 12.7 G/dL Normal 12.0-16.0 [facility] ([place] Comment on above: Performed By: #### C MP, GFR, CBC, LIP, DESIRAE TORRES MDW #### [address] [address] MCH (RBC) [Entitic mass] 26.6 pg Low 27.0-31.2 [facility] ([place] Comment on above: Performed By: #### C MP, GFR, CBC, MELISSA MELGAR ANEU, MDW #### [address] [address] MCHC 32.8 G/dL Low 33.0-37.0 [facility] ([place] Comment on above: Performed By: #### C MP, GFR, CBC, MELISSA MELGAR ANEU, MDW #### [address] [address] MCV (RBC) [Entitic vol] 81.2 fL Normal 80.0-94.0 [facility] ([place] Comment on above: Performed By: #### C MP, GFR, CBC, TALIA, DESIRAE TORRES MDW #### [address] [address] Platelet 385 10 3/mcL Normal 130-400 [facility] ([place] Comment on above: Performed By: #### C MP, GFR, CBC, MELISSA MELGAR ANEU, MDW #### [address] [address] Platelet mean volume (Bld) [Entitic vol] 7.6 fL Normal 7.4-10.4 [facility] ([place] Comment on above: Performed By: #### C MP, GFR, CBC, LIPMELISSA ANEU, MDW #### [address] [address] RBC 4.78 10 6/mcL Normal 4.20-5.40 [facility] ([place] Comment on above: Performed By: #### C MP, GFR, CBC, LIP, ADIFF, ANEU, MDW #### [address] [address] WBC 15.8 10 3/mcL High 4.6-10.8 [facility] ([place] Comment on above: Performed By: #### C MP, GFR, CBC, LIP, ADIFF, ANEU, MDW #### [address] [address] CMPon 02-11-2023 ALT [Catalytic activity/Vol] 15 U/L Normal 14-59 [facility] ([place] Comment on above: Performed By: #### A DIFF, GFR, MDW, CMP, ANEU, CBC, LIP #### [address] [address] Albumin Level 3.0 G/dL Low 3.5-5.0 [facility] ([place] Comment on above: Performed By: #### A DIFF, GFR, MDW, CMP, ANEU, CBC, LIP #### [address] [address] Albumin/Globulin [Mass ratio] 0.8 {ratio} Low 1.1-2.5 [facility] ([place] Comment on above: Performed By: #### A DIFF, GFR, MDW, CMP, ANEU, CBC, LIP #### [address] [address] ALP [Catalytic activity/Vol] 78 U/L Normal 40-135 [facility] ([place] Comment on above: Performed By: #### A DIFF, GFR, MDW, CMP, ANEU, CBC, LIP #### [address] [address] AST [Catalytic activity/Vol] 17 U/L Normal 10-40 [facility] ([place] Comment on above: Performed By: #### A DIFF, GFR, MDW, CMP, ANEU, CBC, LIP #### [address] [address] Bili Total 0.6 mg/dL Normal 0.2-1.0 [facility] ([place] Comment on above: Result Comment: Use of this assay is not recommended for patients undergoing treatment with eltrombopag due to the potential for falsely elevated results. Performed By: #### A DIFF, GFR, MDW, CMP, ANEU, CBC, LIP #### [address] [address] BUN/Creatinine Ratio 6 ratio Low 7-27 [facility] ([place] Comment on above: Performed By: #### A DIFF, GFR, MDW, CMP, ANEU, CBC, LIP #### [address] [address] Calcium [Mass/Vol] 8.5 mg/dL Normal 8.4-10.2 [facility] ([place]) Comment on above: Performed By: #### A DIFF, GFR, MDW, CMP, ANEU, CBC, LIP #### [address] [address] Chloride [Moles/Vol] 96 mmol/L Low 98-107 [facility] ([place] Comment on above: Performed By: #### A DIFF, GFR, MDW, CMP, ANEU, CBC, LIP #### [address] [address] CO2 [Moles/Vol] 29 mmol/L Normal 22-29 [facility] ([place] Comment on above: Performed By: #### A DIFF, GFR, MDW, CMP, ANEU, CBC, LIP #### [address] [address] Creatinine [Mass/Vol] 1.21 mg/dL High 0.55-1.02 [facility] ([place]) Comment on above: Performed By: #### A DIFF, GFR, MDW, CMP, ANEU, CBC, LIP #### [address] [address] Electrolyte Balance 11.0 mEq/L Normal 4.0-15.0 [facility] ([place]) Comment on above: Performed By: #### A DIFF, GFR, MDW, CMP, ANEU, CBC, LIP #### [address] [address] Globulin 3.7 G/dL Normal [facility] ([place] Comment on above: Performed By: #### A DIFF, GFR, MDW, CMP, ANEU, CBC, LIP #### [address] [address] Glucose [Mass/Vol] 246 mg/dL High 70-105 [facility] ([place] Comment on above: Performed By: #### A DIFF, GFR, MDW, CMP, ANEU, CBC, LIP #### [address] [address] Potassium [Moles/Vol] 3.5 mmol/L Normal 3.5-5.1 [facility] ([place] Comment on above: Performed By: #### A DIFF, GFR, MDW, CMP, ANEU, CBC, LIP #### [address] [address] Sodium [Moles/Vol] 136 mmol/L Normal 136-145 [facility] ([place] Comment on above: Performed By: #### A DIFF, GFR, MDW, CMP, ANEU, CBC, LIP #### [address] [address] Total Protein 6.7 G/dL Normal 6.4-8.2 [facility] ([place] Comment on above: Performed By: #### A DIFF, GFR, MDW, CMP, ANEU, CBC, LIP #### [address] [address] Urea nitrogen [Mass/Vol] 7 mg/dL Normal 7-18 [facility] ([place] Comment on above: Performed By: #### A DIFF, GFR, MDW, CMP, ANEU, CBC, LIP #### [address] [address] Albumin Level 3.7 G/dL Normal 3.5-5.0 [facility] ([place] Comment on above: Performed By: #### A DIFF, GFR, MDW, CMP, ANEU, CBC, LIP #### [address] [address] Albumin/Globulin [Mass ratio] 0.8 {ratio} Low 1.1-2.5 [facility] ([place] Comment on above: Performed By: #### A DIFF, GFR, MDW, CMP, ANEU, CBC, LIP #### [address] [address] ALP [Catalytic activity/Vol] 88 U/L Normal 40-135 [facility] ([place] Comment on above: Performed By: #### A DIFF, GFR, MDW, CMP, ANEU, CBC, LIP #### [address] [address] ALT [Catalytic activity/Vol] 16 U/L Normal 14-59 [facility] ([place] Comment on above: Performed By: #### A DIFF, GFR, MDW, CMP, ANEU, CBC, LIP #### [address] [address] AST [Catalytic activity/Vol] 10 U/L Normal 10-40 [facility] ([place] Comment on above: Performed By: #### A DIFF, GFR, MDW, CMP, ANEU, CBC, LIP #### [address] [address] Bili Total 0.9 mg/dL Normal 0.2-1.0 [facility] ([place] Comment on above: Result Comment: Use of this assay is not recommended for patients undergoing treatment with eltrombopag due to the potential for falsely elevated results. Performed By: #### A DIFF, GFR, MDW, CMP, ANEU, CBC, LIP #### [address] [address] BUN/Creatinine Ratio 6 ratio Low 7-27 [facility] ([place] Comment on above: Performed By: #### A DIFF, GFR, MDW, CMP, ANEU, CBC, LIP #### [address] [address] Calcium [Mass/Vol] 9.4 mg/dL Normal 8.4-10.2 [facility] ([place] Comment on above: Performed By: #### A DIFF, GFR, MDW, CMP, ANEU, CBC, LIP #### [address] [address] Chloride [Moles/Vol] 90 mmol/L Low 98-107 [facility] ([place] Comment on above: Performed By: #### A DIFF, GFR, MDW, CMP, ANEU, CBC, LIP #### [address] [address] CO2 [Moles/Vol] 30 mmol/L High 22-29 [facility] ([place]) Comment on above: Performed By: #### A DIFF, GFR, MDW, CMP, ANEU, CBC, LIP #### [address] [address] Creatinine [Mass/Vol] 1.45 mg/dL High 0.55-1.02 [facility] ([place]) Comment on above: Performed By: #### A DIFF, GFR, MDW, CMP, ANEU, CBC, LIP #### [address] [address] Electrolyte Balance 7.0 mEq/L Normal 4.0-15.0 [facility] ([place]) Comment on above: Performed By: #### A DIFF, GFR, MDW, CMP, ANEU, CBC, LIP #### [address] [address] Globulin 4.4 G/dL Normal [facility] ([place]) Comment on above: Performed By: #### A DIFF, GFR, MDW, CMP, ANEU, CBC, LIP #### [address] [address] Glucose [Mass/Vol] 307 mg/dL High 70-105 [facility] ([place]) Comment on above: Performed By: #### A DIFF, GFR, MDW, CMP, ANEU, CBC, LIP #### [address] [address] Potassium [Moles/Vol] 3.5 mmol/L Normal 3.5-5.1 [facility] ([place]) Comment on above: Performed By: #### A DIFF, GFR, MDW, CMP, ANEU, CBC, LIP #### [id number] [place], [place] [address] Sodium [Moles/Vol] 127 mmol/L Low 136-145 [facility] ([place]) Comment on above: Performed By: #### A DIFF, GFR, MDW, CMP, ANEU, CBC, LIP #### [id number] [place], [place] [address] Total Protein 8.1 G/dL Normal 6.4-8.2 [facility] ([place]) Comment on above: Performed By: #### A DIFF, GFR, MDW, CMP, ANEU, CBC, LIP #### [id number] [place], [place] [address] Urea nitrogen [Mass/Vol] 8 mg/dL Normal 7-18 [facility] ([place]) Comment on above: Performed By: #### A DIFF, GFR, MDW, CMP, ANEU, CBC, LIP #### [address] [address] LABORATORYOrdered By: Harriet logan on 02-11-2023 Blood Glucose Testing Reason Routine (02/11/23 4:15 PM) [facility] Work Phone: Glucose [Mass/Vol] 203 mg/dL Invalid Interpretation Code 70 - 110 mg/dL [facility] Work Phone: Blood Glucose Testing Reason Routine (02/11/23 7:15 AM) [facility] Work Phone: Glucose [Mass/Vol] 237 mg/dL Invalid Interpretation Code 70 - 110 mg/dL [facility] Work Phone: LABORATORYOrdered By: Manjinder Boogie on 02-11-2023 Blood Glucose Testing Reason Routine (02/11/23 12:04 PM) [facility] Work Phone: Glucose [Mass/Vol] 220 mg/dL Invalid Interpretation Code 70 - 110 mg/dL [facility] Work Phone: LABORATORYOrdered By: SYSTEM SYSTEM [...] Lactic Acid Lvl 1.7 mmol/L Normal 0.4-2.0 [facility] ([place]) Comment on above: Performed By: #### A DIFF, GFR, MDW, CMP, ANEU, CBC, LIP #### [address] [address] LIPon 02-11-2023 Lipase Level 39 U/L Normal 16-77 [facility] ([place]) Comment on above: Performed By: #### A DIFF, GFR, MDW, CMP, ANEU, CBC, LIP #### [address] [address] MGon 02-11-2023 Magnesium [Mass/Vol] 2.1 mg/dL Normal 1.8-2.4 [facility] ([place]) Comment on above: Performed By: #### A DIFF, GFR, MDW, CMP, ANEU, CBC, LIP #### [address] [address] NM GASTRIC EMPTYING STUDYon 02-11-2023 NM GASTRIC [...] 3:41:00 PM Ordering Provider: MARTI WEBB Normal [facility] ([place]) No Panel Informationon 02-11 Microscopic examination of blood, culture Culture has been received in lab and is no growth to date. Routine cultures are held for [address] [facility] Work Phone: PREGUon 02-11-2023 HCG ( test) Ql (U) Negative Normal [facility] ([place] Comment on above: Performed By: #### A DIFF, GFR, MDW, CMP, ANEU, CBC, LIP #### [address] [address] test (u) int Not detected Invalid Interpretation Code [facility] ([place] Comment on above: Performed By: #### A DIFF, GFR, MDW, CMP, ANEU, CBC, LIP #### [address] [address] [place], [place] [address] TOXSCon 02-11-2023 U Ampheta (AO) Negative Normal [facility] ([place] Comment on above: Performed By: #### A DIFF, GFR, MDW, CMP, ANEU, CBC, LIP #### [address] [address] U Marifer (AO) Negative [facility] ([place]) Comment on above: Performed By: #### A DIFF, GFR, MDW, CMP, ANEU, CBC, LIP #### [address] [address] U Ayan (AO) Negative [facility] ([place] Comment on above: Performed By: #### A DIFF, GFR, MDW, CMP, ANEU, CBC, LIP #### [address] [address] U Cannab (AO) Positive [facility] ([place] Comment on above: Performed By: #### A DIFF, GFR, MDW, CMP, ANEU, CBC, LIP #### [address] [address] U Cocaine (AO) Negative [facility] ([place] Comment on above: Performed By: #### A DIFF, GFR, MDW, CMP, ANEU, CBC, LIP #### [address] [address] U Methadone (AO) Negative [facility] ([place] Comment on above: Performed By: #### A DIFF, GFR, MDW, CMP, ANEU, CBC, LIP #### [address] [address] U PCP (AO) Negative [facility] ([place] Comment on above: Performed By: #### A DIFF, GFR, MDW, CMP, ANEU, CBC, LIP #### [address] [address] U TCA (AO) Negative [facility] ([place] Comment on above: Performed By: #### A DIFF, GFR, MDW, CMP, ANEU, CBC, LIP #### [address] [address] Urine Opiates (AO) Positive [facility] ([place]) Comment on above: Performed By: #### A DIFF, GFR, MDW, CMP, ANEU, CBC, LIP #### [address] [place] [address] UAon 02-11-2023 Color (U) Yellow Normal [facility] ([place] Comment on above: Performed By: #### A DIFF, GFR, MDW, CMP, ANEU, CBC, LIP #### [address] [address] Glucose (U) [Mass/Vol] 100 mg/dL Abnormal Negative [facility] ([place]) Comment on above: Performed By: #### A DIFF, GFR, MDW, CMP, ANEU, CBC, LIP #### [address] [address] Ketones Ql (U) Negative Normal Negative [facility] ([place] Comment on above: Performed By: #### A DIFF, GFR, MDW, CMP, ANEU, CBC, LIP #### [address] [address] UA Appear Clear Normal Clear [facility] ([place] Comment on above: Performed By: #### A DIFF, GFR, MDW, CMP, ANEU, CBC, LIP #### [address] [address] UA Blood Trace Abnormal Negative [facility] ([place] Comment on above: Performed By: #### A DIFF, GFR, MDW, CMP, ANEU, CBC, LIP #### [address] [address] UA Leuk Est Negative Normal Negative [facility] ([place] Comment on above: Performed By: #### A DIFF, GFR, MDW, CMP, ANEU, CBC, LIP #### [address] [address] UA Nitrite Negative Normal Negative [facility] ([place] Comment on above: Performed By: #### A DIFF, GFR, MDW, CMP, ANEU, CBC, LIP #### [address] [address] UA pH 7.0 Normal 5.0 - 8.0 [facility] ([place]) Comment on above: Performed By: #### A DIFF, GFR, MDW, CMP, ANEU, CBC, LIP #### [place] [address] [place], [place] [address] UA Protein Negative Normal Negative [facility] ([place] Comment on above: Performed By: #### A DIFF, GFR, MDW, CMP, ANEU, CBC, LIP #### [address] [address] UA Spec Grav 1.015 Normal 1.015-1.025 [facility] ([place]) Comment on above: Performed By: #### A DIFF, GFR, MDW, CMP, ANEU, CBC, LIP #### [address] [address] UA Specimen Type Void Normal [facility] ([place] Comment on above: Performed By: #### A DIFF, GFR, MDW, CMP, ANEU, CBC, LIP #### [address] [address] UA Urobilinogen 0.2 E.U./dL Normal 0.2-1.0 [facility] ([place] Comment on above: Performed By: #### A DIFF, GFR, MDW, CMP, ANEU, CBC, LIP #### [address] [address] Urobilinogen (U) [Mass/Vol] Negative Normal Negative [facility] ([place] Comment on above: Performed By: #### A DIFF, GFR, MDW, CMP, ANEU, CBC, LIP #### [address] [address] Color (U) Yellow Normal [facility] ([place] Comment on above: Performed By: #### A DIFF, GFR, MDW, CMP, ANEU, CBC, LIP #### [address] [address] Glucose (U) [Mass/Vol] 100 mg/dL Abnormal Negative [facility] ([place]) Comment on above: Performed By: #### A DIFF, GFR, MDW, CMP, ANEU, CBC, LIP #### [address] [address] Ketones Ql (U) 15 mg/dL Abnormal Negative [facility] ([place] Comment on above: Performed By: #### A DIFF, GFR, MDW, CMP, ANEU, CBC, LIP #### [address] [address] UA Appear Clear Normal Clear [facility] ([place] Comment on above: Performed By: #### A DIFF, GFR, MDW, CMP, ANEU, CBC, LIP #### [address] [address] UA Blood Trace Abnormal Negative [facility] ([place] Comment on above: Performed By: #### A DIFF, GFR, MDW, CMP, ANEU, CBC, LIP #### [address] [address] UA Leuk Est Trace Abnormal Negative [facility] ([place] Comment on above: Performed By: #### A DIFF, GFR, MDW, CMP, ANEU, CBC, LIP #### [address] [address] UA Nitrite Negative Normal Negative [facility] ([place] Comment on above: Performed By: #### A DIFF, GFR, MDW, CMP, ANEU, CBC, LIP #### [address] [address] UA pH 5.5 Normal 5.0 - 8.0 [facility] ([place]) Comment on above: Performed By: #### A DIFF, GFR, MDW, CMP, ANEU, CBC, LIP #### [address] [address] UA Protein Negative Normal Negative [facility] ([place] Comment on above: Performed By: #### A DIFF, GFR, MDW, CMP, ANEU, CBC, LIP #### [address] [address] UA Spec Grav <=1.005 Abnormal 1.015-1.025 [facility] ([place]) Comment on above: Performed By: #### A DIFF, GFR, MDW, CMP, ANEU, CBC, LIP #### [address] [address] UA Specimen Type Clean Catch Normal [facility] ([place] Comment on above: Performed By: #### A DIFF, GFR, MDW, CMP, ANEU, CBC, LIP #### [id number] [place], [place] [address] UA Urobilinogen 0.2 E.U./dL Normal 0.2-1.0 [facility] ([place] Comment on above: Performed By: #### A DIFF, GFR, MDW, CMP, ANEU, CBC, LIP #### [id number] [place], [place] [address] Urobilinogen (U) [Mass/Vol] Negative Normal Negative [facility] ([place] Comment on above: Performed By: #### A DIFF, GFR, MDW, CMP, ANEU, CBC, LIP #### [id number] [place], [place] [address] US ABDOMEN COMPLETEon 2022 US ABDOMEN COMPLETE [...] 02/11/2023 1:29:01 PM Ordering Provider: MARTI Maldonado [facility] ([place]) [place] PELVIS NON-OB W/TRANSVAGI NALon 02-11-2023 US [...] Date: 02/11/2023 12:11:13 PM Ordering Provider: MARTI Maldonado [facility] ([place]) XR ABDOMEN APon 02-11-2023 XR ABDOMEN AP [...] AM Ordering Provider: MARTI WEBB [facility] ([place]) LABORATORYOrdered By: SYSTEM SYSTEM on 02-10-2023 Albumin [...] Auto (Unsp spec) [#/Vol] 1.67 10*3/uL 0.83-4.51 [facility] Amorphous sediment detection in urine sediment by light microscopyOrdered By: Javy Doss on 02-08-2023 Amorphous sediment LM Ql (Urine sed) 3+ PHOS [facility] Basophil percentageOrdered B y: Javy Doss on 02-08-2023 Basophil percentage 0-5 SEEN /hpf 0-5 [facility] Basophil percentage 325 mg/dL 74-106 [facility] Basophil percentage 9.2 g/dL 6.4-8.2 [facility] Basophil percentage 0.70 mg/dL 0.20-1.00 [facility] Basophil percentage 134 mmol/L 136-145 [facility] Basophil percentage 3.7 mmol/L 3.5-5.1 [facility] Basophil percentage 96 mmol/L 98-107 [facility] Basophils (Bld) [#/Vol] 9.1 10*3/uL 4.4-11.0 [facility] Basophils (Bld) [#/Vol] 7.0 10*3/uL 2.0-7.7 [facility] Basophils/100 WBC (Bld) 0.2 % 0-[address] [facility] Basophils/100 WBC (Bld) 77.0 % 47-70 [facility] Basophils/100 WBC (Bld) 0.0 % 0-5 [facility] Bilirubin [Mass/Vol] 0.70 mg/dL 0.20-1.00 [facility] Comment on above: For patients on eltr ombopag therapy, use of Dimension [place] TBIL is not recommended. Chloride [Moles/Vol] 96 mmol/L 98-107 [facility] Eosinophils/100 WBC (Bld) 0.0 % 0-5 [facility] Glucose [Mass/Vol] 325 mg/dL 74-106 [facility] Comment on above: Glucose result great er than or equal to 200 mg/dLsuggests DIABETES MELLITUS per A.D.A. criteria. Neutrophils (Bld) [#/Vol] 7.0 10*3/uL 2.0-7.7 [facility] Neutrophils/100 WBC (Bld) 77.0 % 47-70 [facility] Potassium [Moles/Vol] 3.7 mmol/L 3.5-5.1 [facility] Protein [Mass/Vol] 9.2 g/dL 6.4-8.2 [facility] Sodium [Moles/Vol] 134 mmol/L 136-145 [facility] WBC (Bld) [#/Vol] 9.1 10*3/uL 4.4-11.0 [facility] Beta hCG serum qualOrdered B y: Javy Doss on 02-08-2023 Beta HCG ( test) Ql Negative [facility] Bilirubin Test strip Ql (U)O rdered By: Javy Doss on 02-08-2023 Bilirubin Ql (U) Negative Negative [facility] Blood erythrocytes count (nu mber/volume)Ordered By: Javy Doss on 02-08-2023 RBC (Bld) [#/Vol] 5.27 10*6/uL 4.2-5.4 [facility] Blood hemoglobin measurement (mass/volume)Ordered By: Javy Doss on 02-08-2023 Hemoglobin (Bld) [Mass/Vol] 13.9 g/dL 12.0-15.0 [facility] Blood lymphocytes/100 leukoc ytesOrdered By: Javy Doss on 02-08-2023 Lymphocytes/100 WBC (Bld) 18.4 % 19-41 [facility] Blood monocytes/100 leukocyt esOrdered By: Javy Doss on 02-08-2023 Monocytes/100 WBC (Bld) 3.6 % 0-[address] [facility] Blood platelet mean volumeOr dered By: Javy Doss on 02-08-2023 Platelet mean volume (Bld) [Entitic vol] 9.3 fL 6.2-12.0 [facility] Determination of erythrocyte mean corpuscular volume (MCV)Ordered By: Javy Doss on 02-08-2023 MCV (RBC) [Entitic vol] 81.2 fL 81-[address] [facility] Hematocrit Auto (Bld) [Volum e fraction]Ordered By: [facility] D[facility] on 02-08-2023 Hematocrit (Bld) [Volume fraction] 42.8 % 37-47 [facility] Ketones Test strip Ql (U)Ord ered By: [place] Romario on 02-08-2023 Ketones Ql (U) 50 mg/dl Negative [facility] Laboratory - Chemistry and C hemistry - challengeOrdered By: Javy Doss on 02-08-2023 ALP [Catalytic activity/Vol] 105 U/L 45-117 [facility] ALT [Catalytic activity/Vol] 24 U/L 13-56 [facility] CO2 [Moles/Vol] 30.0 mmol/L 21.0-32.0 [facility] Globulin (S) [Mass/Vol] 5.4 g/dL 2.2-4.[address] [facility] Lipase [Catalytic activity/Vol] 38 U/L 13-75 [facility] Comment on above: Please note:LIPASE r evised reference range effective 22. New Lipase methodology. Expected to produce lower values than the previous assay method. NEW Reference Range: 13 - 75 U/L Urea nitrogen/Creatinine [Mass ratio] 7.4 mg/mg 10-20 [facility] Laboratory - Hematology and Cell countsOrdered By: Javy Doss on 02-08-2023 Erythrocyte distribution width (RBC) [Entitic vol] 39.1 fL 35.1-43.9 [facility] Erythrocyte distribution width (RBC) [Ratio] 13.3 % 11.6-14.6 [facility] Immature granulocytes/100 WBC (Bld) 0.800 % 0.0-0.9 [facility] Comment on above: IG% - Immature Granu locytes (promyelocytes, myelocytes and metamyelocytes) > 1% indicates that a LEFT SHIFT is Present. MCH (RBC) [Entitic mass] 26.4 pg 27.0-32.0 [facility] Nucleated RBC/100 WBC (Bld) [Ratio] 0 % 0-5 [facility] MCHC Auto (RBC) [Mass/Vol]Or dered By: Javy Doss on 02-08-2023 MCHC (RBC) [Mass/Vol] 32.5 g/dL 32-36 [facility] Mucus LM Ql (Urine sed)Order ed By: Javy Doss on 02-08-2023 Mucus Ql (Urine sed) 0 SEEN /hpf [facility] Nitrite Test strip Ql (U)Ord ered By: Javy Doss on 02-08-2023 Nitrite Ql (U) Negative Negative [facility] No Panel InformationOrdered By: Javy Doss on 02-08-2023 Estimated Creatinine Clearance Calc 62.55 ml/min [facility] Estimated GFR (MDRD) Amer 66 mL/min >60 [facility] Comment on above: GFR Calc Estimated GFR (MDRD) Non-Af Amer 55 mL/min >60 [facility] Comment on above: Non- GFR Calc 26.4 pg 27.0-32.0 [facility] 13.3 % 11.6-14.6 [facility] 39.1 fl 35.1-43.9 [facility] 0.800 % 0.0-0.9 [facility] 0 % 0-5 [facility] 55 mL/min >60 [facility] 66 mL/min >60 [facility] 62.55 ml/min [facility] 7.4 RATIO 10-20 [facility] 5.4 g/dL 2.2-4.2 [facility] 38 U/L 13-75 [facility] 105 U/L 45-117 [facility] 24 U/L 13-56 [facility] 30.0 mmol/L 21.0-32.0 [facility] Platelets bldOrdered By: Haylee Doss on 02-08-2023 Platelets (Bld) [#/Vol] 394 10*3/uL 150-450 [facility] Protein Test strip Ql (U)Ord ered By: Javy Doss on 02-08-2023 Protein Ql (U) 30 mg/dl Negative [facility] Serum or plasma albumin hussein urement (mass/volume)Ordered By: Javy Doss on 02-08-2023 Albumin [Mass/Vol] 3.8 g/dL 3.2-5.0 [facility] Serum or plasma albumin/glob ulin mass ratioOrdered By: Javy Doss on 02-08-2023 Albumin/Globulin [Mass ratio] 0.7 {ratio} 0.9-2.4 [facility] Serum or plasma calcium hussein urement (mass/volume)Ordered By: Javy Doss on 02-08-2023 Calcium [Mass/Vol] 9.7 mg/dL 8.5-10.1 [facility] Serum or plasma creatinine m easurement (mass/volume)Ordered By: Javy Doss on 02-08-2023 Creatinine [Mass/Vol] 1.22 mg/dL 0.55-1.02 [facility] Comment on above: The validity of the calculated GFR & GFRAA in patients over 70 years has not been determined. Clinical correlation is essential. Serum or plasma urea nitroge n measurement (mass/volume)Ordered By: Javy Doss on 02-08-2023 Urea nitrogen [Mass/Vol] 9 mg/dL 7-18 [facility] Squamous epithelial cells de tection in urine sediment by light microscopyOrdered By: Javy Doss on 02-08-2023 Epithelial cells.squamous LM Ql (Urine sed) 0-5 SEEN /hpf 5-10 [facility] Thin prep Papanicolaou smear with manual screeningOrdered By: Javy Doss on 02-08-2023 Thin prep Papanicolaou smear with manual screening 15 U/L 15-37 [facility] Thin prep Papanicolaou smear with manual screening 8 5-15 [facility] Urine blood detectionOrdered By: Javy Doss on 02-08-2023 RBC Ql (U) Negative Negative [facility] RBC Ql (U) 0 SEEN /hpf 0-5 [facility] Urine clarityOrdered By: Haylee Doss on 02-08-2023 Clarity (U) Sl. Cloudy Clear [facility] Urine color determinationOrd ered By: Javy Doss on 02-08-2023 Color (U) Yellow Yellow [facility] Urine glucose detectionOrder ed By: Javy Doss on 02-08-2023 Glucose Ql (U) 1000 mg/dl Normal [facility] Urine leukocyte esterase det ection by dipstickOrdered By: Javy Doss on 02-08-2023 Leukocyte esterase Test strip Ql (U) 25 /ul Negative [facility] Urine pHOrdered By: Javy Un gur on 02-08-2023 pH (U) 8.0 [pH] 5.0 - 8.0 [facility] Urine sediment bacteria coun t by microscopy (number/high power field)Ordered By: Javy Doss on 02-08-2023 Bacteria LM.HPF (Urine sed) [#/Area] 0 /[HPF] None Seen [facility] Urine specific gravity measu rementOrdered By: Javy Doss on 02-08-2023 Specific gravity (U) [Rel density] 1.010 1.002-1.030 [facility] Urobilinogen Auto test strip Ql (U)Ordered By: Javy Dsos on 02-08-2023 Urobilinogen Ql (U) Normal mg/dl Normal [facility] Absolute lymphocyte countOrd ered By: Fabricio Guevara on 02-04-2023 Lymphocytes Auto (Unsp spec) [#/Vol] 3.25 10*3/uL 0.83-4.51 [facility] Basophil percentageOrdered B y: Fabricio Guevara on 02-04-2023 Basophil percentage 259 mg/dL 74-106 [facility] Basophil percentage 8.1 g/dL 6.4-8.2 [facility] Basophil percentage 0.40 mg/dL 0.20-1.00 [facility] Basophil percentage 138 mmol/L 136-145 [facility] Basophil percentage 3.5 mmol/L 3.5-5.1 [facility] Basophil percentage 103 mmol/L 98-107 [facility] Basophils (Bld) [#/Vol] 8.8 10*3/uL 4.4-11.0 [facility] Basophils (Bld) [#/Vol] 4.9 10*3/uL 2.0-7.7 [facility] Basophils/100 WBC (Bld) 0.3 % 0-[address] [facility] Basophils/100 WBC (Bld) 55.7 % 47-70 [facility] Basophils/100 WBC (Bld) 0.5 % 0-5 [facility] Bilirubin [Mass/Vol] 0.40 mg/dL 0.20-1.00 [facility] Comment on above: For patients on eltr ombopag therapy, use of Dimension [place] TBIL is not recommended. Chloride [Moles/Vol] 103 mmol/L 98-107 [facility] Eosinophils/100 WBC (Bld) 0.5 % 0-5 [facility] Glucose [Mass/Vol] 259 mg/dL 74-106 [facility] Comment on above: Glucose result great er than or equal to 200 mg/dLsuggests DIABETES MELLITUS per A.D.A. criteria. Neutrophils (Bld) [#/Vol] 4.9 10*3/uL 2.0-7.7 [facility] Neutrophils/100 WBC (Bld) 55.7 % 47-70 [facility] Potassium [Moles/Vol] 3.5 mmol/L 3.5-5.1 [facility] Protein [Mass/Vol] 8.1 g/dL 6.4-8.2 [facility] Sodium [Moles/Vol] 138 mmol/L 136-145 [facility] WBC (Bld) [#/Vol] 8.8 10*3/uL 4.4-11.0 [facility] Blood erythrocytes count (nu mber/volume)Ordered By: Fabricio Guevara on 02-04-2023 RBC (Bld) [#/Vol] 4.65 10*6/uL 4.2-5.4 [facility] Blood hemoglobin measurement (mass/volume)Ordered By: Fabricio Guevara on 02-04-2023 Hemoglobin (Bld) [Mass/Vol] 12.5 g/dL 12.0-15.0 [facility] Blood lymphocytes/100 leukoc ytesOrdered By: Fabricio Guevara on 02-04-2023 Lymphocytes/100 WBC (Bld) 37.0 % 19-41 [facility] Blood monocytes/100 leukocyt esOrdered By: Fabricio Guevara on 02-04-2023 Monocytes/100 WBC (Bld) 5.8 % 0-[address] [facility] Blood platelet mean volumeOr dered By: Fabricio Guevara on 02-04-2023 Platelet mean volume (Bld) [Entitic vol] 9.4 fL 6.2-12.0 [facility] Determination of erythrocyte mean corpuscular volume (MCV)Ordered By: Fabricio Guevara on 02-04-2023 MCV (RBC) [Entitic vol] 80.0 fL 81-[address] [facility] Hematocrit Auto (Bld) [Volum e fraction]Ordered By: Fabricio Guevara on 02-04-2023 Hematocrit (Bld) [Volume fraction] 37.2 % 37-47 [facility] Laboratory - Chemistry and C hemistry - challengeOrdered By: Fabricio Guevara on 02-04-2023 ALP [Catalytic activity/Vol] 94 U/L 45-117 [facility] ALT [Catalytic activity/Vol] 29 U/L 13-56 [facility] CO2 [Moles/Vol] 25.0 mmol/L 21.0-32.0 [facility] Globulin (S) [Mass/Vol] 4.7 g/dL 2.2-4.[address] [facility] Lipase [Catalytic activity/Vol] 51 U/L 13-75 [facility] Comment on above: Please note:LIPASE r evised reference range effective 22. New Lipase methodology. Expected to produce lower values than the previous assay method. NEW Reference Range: 13 - 75 U/L Urea nitrogen/Creatinine [Mass ratio] 7.0 mg/mg 10-20 [facility] Laboratory - Hematology and Cell countsOrdered By: Fabricio Guevara on 02-04-2023 Erythrocyte distribution width (RBC) [Entitic vol] 39.2 fL 35.1-43.9 [facility] Erythrocyte distribution width (RBC) [Ratio] 13.6 % 11.6-14.6 [facility] Immature granulocytes/100 WBC (Bld) 0.700 % 0.0-0.9 [facility] Comment on above: IG% - Immature Granu locytes (promyelocytes, myelocytes and metamyelocytes) > 1% indicates that a LEFT SHIFT is Present. MCH (RBC) [Entitic mass] 26.9 pg 27.0-32.0 [facility] Nucleated RBC/100 WBC (Bld) [Ratio] 0 % 0-5 [facility] MCHC Auto (RBC) [Mass/Vol]Or dered By: Fabricio Guevara on 02-04-2023 MCHC (RBC) [Mass/Vol] 33.6 g/dL 32-36 [facility] No Panel InformationOrdered By: Fabricio Guevara on 02-04-2023 Estimated GFR (MDRD) Amer 84 mL/min >60 [facility] Estimated GFR (MDRD) Non-Af Amer 69 mL/min >60 [facility] 26.9 pg 27.0-32.0 [facility] 13.6 % 11.6-14.6 [facility] 39.2 fl 35.1-43.9 [facility] 0.700 % 0.0-0.9 [facility] 0 % 0-5 [facility] 69 mL/min >60 [facility] 84 mL/min >60 [facility] 7.0 RATIO 10-20 [facility] 4.7 g/dL 2.2-4.2 [facility] 51 U/L 13-75 [facility] 94 U/L 45-117 [facility] 29 U/L 13-56 [facility] 25.0 mmol/L 21.0-32.0 [facility] Platelets bldOrdered By: Chidi Guevara on 02-04-2023 Platelets (Bld) [#/Vol] 358 10*3/uL 150-450 [facility] Serum or plasma albumin hussein urement (mass/volume)Ordered By: Fabricio Guevara on 02-04-2023 Albumin [Mass/Vol] 3.4 g/dL 3.2-5.0 [facility] Serum or plasma albumin/glob ulin mass ratioOrdered By: Fabricio Guevara on 02-04-2023 Albumin/Globulin [Mass ratio] 0.7 {ratio} 0.9-2.4 [facility] Serum or plasma calcium hussein urement (mass/volume)Ordered By: Fabricio Guevara on 02-04-2023 Calcium [Mass/Vol] 9.2 mg/dL 8.5-10.1 [facility] Serum or plasma creatinine m easurement (mass/volume)Ordered By: Fabricio Guevara on 02-04-2023 Creatinine [Mass/Vol] 1.00 mg/dL 0.55-1.02 [facility] Comment on above: The validity of the calculated GFR & GFRAA in patients over 70 years has not been determined. Clinical correlation is essential. Serum or plasma urea nitroge n measurement (mass/volume)Ordered By: Fabricio Guevara on 02-04-2023 Urea nitrogen [Mass/Vol] 7 mg/dL 7-18 [facility] Thin prep Papanicolaou smear with manual screeningOrdered By: Fabricio Guevara on 02-04-2023 Thin prep Papanicolaou smear with manual screening 18 U/L 15-37 [facility] Thin prep Papanicolaou smear with manual screening 10 5-15 [facility] CBC W Auto Differential pane l (Bld)Ordered By: Yashira Cleaning on 01-24-2023 Basophils (Bld) [#/Vol] 0.0 10*3/uL 0.0 - 0.2 10*3/uL [facility] Sand Sign Basophils/100 WBC (Bld) 0.3 % 0.0 - 2.0 % [facility] Sand Sign Eosinophils (Bld) [#/Vol] 0.0 10*3/uL 0.0 - 0.5 10*3/uL [facility] Eosinophils/100 WBC (Bld) 0.3 % Low 1.0 - 6.0 % [facility] Erythrocyte distribution width (RBC) [Ratio] 13.9 % 11.5 - 14.5 % [facility] Hematocrit (Bld) [Volume fraction] 37.2 % 35.0 - 47.0 % [facility] Hemoglobin (Bld) [Mass/Vol] 12.4 g/dL 11.7 - 16.0 g/dL [facility] Immature granulocytes (Bld) [#/Vol] 0.1 10*3/uL High NINF - 0.0 10*3/uL [facility] Immature granulocytes/100 WBC (Bld) 0.6 % High NINF - 0.0 % [facility] Interpretation and review of laboratory results Abnormal [facility] Lymphocytes (Bld) [#/Vol] 2.6 10*3/uL 1.0 - 4.3 10*3/uL [facility] Lymphocytes/100 WBC (Bld) 33.6 % 20.0 - 40.0 % [facility] MCH (RBC) [Entitic mass] 26.3 pg 26.0 - 34.0 pg [facility] MCHC (RBC) [Mass/Vol] 33.3 % 32.0 - 36.0 % [facility] MCV (RBC) [Entitic vol] 79.0 fL Low 80.0 - 98.0 fL [facility] Monocytes (Bld) [#/Vol] 0.5 10*3/uL 0.0 - 0.8 10*3/uL [facility] Monocytes/100 WBC (Bld) 5.9 % 2.0 - 10.0 % [facility] Neutrophils (Bld) [#/Vol] 4.6 10*3/uL 1.8 - 7.0 10*3/uL [facility] Neutrophils/100 WBC (Bld) 59.3 % 40.0 - 80.0 % [facility] Platelet mean volume (Bld) [Entitic vol] 9.1 fL 7.4 - 12.4 fL [facility] Comment on above: MPV is a calculated measurement using platelet volume ratio Platelets (Bld) [#/Vol] 342 10*3/uL 140 - 440 10*3/uL [facility] RBC (Bld) [#/Vol] 4.71 10*6/uL 3.8 - 5.20 10*6/uL [facility] WBC (Bld) [#/Vol] 7.8 10*3/uL 3.6 - 10.7 10*3/uL [facility] Comprehensive metabolic 1998 panelon 01-24-2023 Albumin [Mass/Vol] 4.2 g/dL 3.5 - 5.0 g/dL [facility] ALP [Catalytic activity/Vol] 74 U/L 38 - 126 U/L [facility] ALT [Catalytic activity/Vol] 20 U/L 0 - 34 U/L [facility] Anion gap [Moles/Vol] 10 mmol/L 3 - 13 mmol/L [facility] AST [Catalytic activity/Vol] 28 U/L 15 - 46 U/L [facility] Bilirubin [Mass/Vol] 0.7 mg/dL 0.2 - 1 .3 mg/dL [facility] Calcium [Mass/Vol] 9.4 mg/dL 8.4 - 10. 4 mg/dL [facility] Chloride [Moles/Vol] 100 mmol/L 98 - 10 7 mmol/L [facility] CO2 [Moles/Vol] 25 mmol/L 22 - 30 mmol/L [facility] Creatinine [Mass/Vol] 0.78 mg/dL 0.52 - 1.04 mg/dL [facility] GFR/1.73 sq M.predicted MDRD (S/P/Bld) [Vol rate/Area] - PINF [facility] Comment on above: Calculation based on the Chronic Kidney Disease Epidemiology Collaboration (CKD-EPI) equation refit without adjustment for race Glucose [Mass/Vol] 220 mg/dL High 70 - 100 mg/dL [facility] Interpretation and review of laboratory results Abnormal [facility] Potassium [Moles/Vol] 3.6 mmol/L 3.5 - 5.1 mmol/L [facility] Protein [Mass/Vol] 8.1 g/dL 6.3 - 8.2 g/dL [facility] Sodium [Moles/Vol] 135 mmol/L 135 - 145 mmol/L [facility] Urea nitrogen [Mass/Vol] 9 mg/dL 7 - 17 mg/dL [facility] ECG 12-LEADon 01-24-2023 ECG 12-LEAD IMPRESSION: SINUS RHYTHM VENTRICULAR PREMATURE COMPLEX CONSIDER LEFT VENTRICULAR HYPERTROPHY No previous ECG available for comparison Electronically Signed On 01-24-2023 11:21:48 EDT by Abdirizak Ramirez [facility] ED Nursing Noteon 01-24-2023 ED Nursing Note Patient to room 15 w ith c/o vomiting for 3 weeks. Patient reports being at [facility] and being told it was [facility], and there was nothing more they could do for her. Patient reports having Zofran at home that she doesn't take, because it has not relieved her symptoms. V/S obtained, call light within reach. Normal [facility] ED Provider Noteon ED Provider Note [facility] ED EMERGENCY DEPARTMENT ENCOUNTER Pt Name: [...] Phys[facility] (Per Emergency Physician): Interpretation per the [...] Normal (more content not included)... Normal [facility] - Chemistry and C hemistry - challengeon 01-24-2023 Troponin I.cardiac [Mass/Vol] ng/mL 0.000 - 0.034 ng/mL [facility] Lipase [Catalytic activity/Vol] 130 U/L 23 - 300 U/L [facility] Magnesium [Mass/Vol] 1.8 mg/dL 1.6 - 2 .3 mg/dL [facility] Beta HCG ( test) Ql Negative Negative [facility] Comment on above: Please note: Very di lute urine specimens, as indicated by a low specific gravity, may not contain retail field representative levels of hCG. If is still suspected, a first morning urine specimen should be collected 48 hours later and tested. Beta HCG ( test) Ql (U) is the most common reason for HCG in urine, although choriocarcinoma, hydatidiform mole, and certain nontrophoblastic malignancies also result in detectable urinary HCG levels. Sensitivity = 20mIU/mL. [facility] No Panel Informationon 01-24 P [place] -3 degrees [facility] NE Interval 128 ms [facility] QRS [place] -11 degrees [facility] QR[facility]val [facility]val [facility] ms [facility] QTC Interval 425 ms [facility] T Wave [place] 8 degrees [facility] SINUS RHYTHM VENTRICULAR PREMATURE COMPLEX CONSIDER LEFT VENTRICULAR HYPERTROPHY No previous ECG available for comparison Electronically Signed On 01-24-2023 11:21:48 EDT by Abdirizak Ramirez Abdirizak Camacho MD - 01/24/2023 IMPRESSION: SINUS RHYTHM VENTRICULAR PREMATURE COMPLEX CONSIDER LEFT VENTRICULAR HYPERTROPHY No previous ECG available for comparison Electronically Signed On 01-24-2023 11:21:48 EDT by Abdirizak Ramirez [facility] Interpretation and review of laboratory results Normal [facility] Troponin I.cardiac [Mass/Vol ]on 01-24-2023 Interpretation and review of laboratory results Normal [facility] Patients with high levels of Biotin oral intake (ie >5 mg/day) may have falsely decreased Troponin levels. [facility] Urinalysis complete panel (U )on 01-24-2023 Amorphous Crystals, Urine Few Abnormal Negative /HPF [facility] Bacteria LM.HPF (Urine sed) [#/Area] Few Abnormal Negative /HPF [facility] Bilirubin Ql (U) Negative Negative mg/dL [facility] Clarity (U) Turbid Abnormal Clear [facility] Color (U) Yellow Lt. Yellow [facility] Epithelial cells.squamous LM.HPF (Urine sed) [#/Area] 11-25 Abnormal [facility] Glucose Ql (U) 500 mg/dL Abnormal Normal (<70) [facility] Hemoglobin Ql (U) Negative Negative mg/dL [facility] Interpretation and review of laboratory results Abnormal [facility] Ketones (U) [Mass/Vol] 20 mg/dL Abnormal Negative [facility] Leukocyte esterase Test strip Ql (U) 250 Abnormal Negative [place]/uL [facility] Mucus LM.HPF (Urine sed) [#/Area] Few Negative /LPF [facility] Nitrite Ql (U) Negative Negative [facility] th pH (U) 6.5 [pH] 5.0 - 8.0 pH [facility] Protein (U) [Mass/Vol] 20 mg/dL Abnormal Negative [facility] RBC LM.HPF (Urine sed) [#/Area] 0-2 [facility] Specific gravity (U) [Rel density] 1.016 1.005 - 1.030 [facility] Urobilinogen (U) [Mass/Vol] Normal Normal (0-1) mg/dL [facility] Volume, Urine 12 mL [facility] WBC LM.HPF (Urine sed) [#/Area] 6-10 Abnormal [facility] Vital signson 01-24-2023 Heart rate 69 /min bpm [facility] CBC + DIFFon 01-17-2023 Baso # 0.00 x10EE3/UL Normal 0.00 - 0.10 [facility] Comment on above: Performed By: #### 2 [id number] #### [facility],[address] [place] [address] Basophils/100 WBC (Bld) 0.4 % Normal 0.0 - 2.0 [facility] Comment on above: Performed By: #### 2 85506 #### [facility],[address] [place] [address] CBC + DIFF Normal [facility] Comment on above: Result Comment: CBC- COMPLETE BLOOD COUNT Performed By: #### 2 97049 #### [facility],[address] [place] [address] EO # 0.00 x10EE3/UL Normal 0.00 - 0.50 [facility] Comment on above: Performed By: #### 2 08798 #### [facility],[address] [place] [address] Eosinophils/100 WBC (Bld) 0.3 % Normal 0.0 - 7.0 [facility] Comment on above: Performed By: #### 2 11766 #### [facility],[address] [place] [address] Erythrocyte distribution width (RBC) [Ratio] 15.2 % Normal 12.0 - 15.6 [facility] Comment on above: Performed By: #### 2 93565 #### [facility],[address] [place] [address] Hematocrit (Bld) [Volume fraction] 40.9 % Normal 34.0 - 46.0 [facility] Comment on above: Performed By: #### 2 64524 #### [facility],[address] [place] [address] Hemoglobin (Bld) [Mass/Vol] 13.6 g/dL Normal 12.0 - 16.0 [facility] Comment on above: Performed By: #### 2 34617 #### [facility],[address] [place] [address] Lymph # 3.30 x10EE3/UL High 0.80 - 2.80 [facility] Comment on above: Performed By: #### 2 43642 #### [facility],[address] [place] [address] Lymphocytes/100 WBC (Bld) 30.0 % Normal 20.0 - 45.0 [facility] Comment on above: Performed By: #### 2 30732 #### [facility],[address] [place] [address] MANUAL DIFF N/A Normal [facility] Comment on above: Performed By: #### 2 82136 #### [facility],[address] [place] [address] MCH (RBC) [Entitic mass] 27 pg Normal 27 - 33 [facility] Comment on above: Performed By: #### 2 89358 #### [facility],[address] [place] [address] MCHC 33 X10 3 Normal 32 - 36 [facility] Comment on above: Performed By: #### 2 74668 #### [facility],[address] [place] [address] MCV (RBC) [Entitic vol] 80 fL Normal 80 - 99 [facility] Comment on above: Performed By: #### 2 90430 #### [facility],[address] [place] [address] [place] # 0.80 x10EE3/UL Normal 0.20 - 1.00 [facility] Comment on above: Performed By: #### 2 15222 #### [facility],[address] [place] [address] MONOS % 7.6 % Normal 0.0 - 10.0 [facility] Comment on above: Performed By: #### 2 67006 #### [facility],[address] [place] [address] Morphology Franky (Bld) [Interp] N/A Normal [facility] Comment on above: Performed By: #### 2 19250 #### [facility],[address] [place] [address] Neut # 6.80 x10EE3/UL Normal 1.50 - 7.10 [facility] Comment on above: Performed By: #### 2 47796 #### [facility],[address] [place], [place] [id number] Neutrophils/100 WBC (Bld) 61.7 % Normal 46.0 - 76.0 [facility] Comment on above: Performed By: #### 2 13696 #### [facility],[address] [place] [address] PLATELET 504 x10EE3/UL High 150 - 450 [facility] Comment on above: Performed By: #### 2 62945 #### [place] [address] Platelet mean volume (Bld) [Entitic vol] 7.2 fL Normal 6.6 - 10.5 [facility] Comment on above: Result Comment: AUTO MATED DIFFERENTIAL Performed By: #### 2 82453 #### [place] [address] RBC 5.14 x 10EE6/UL Normal 4.10 - 5.30 [facility] Comment on above: Performed By: #### 2 54179 #### [place] [address] WBC 11.1 x 10EE3/UL High 4.5 - 10.8 [facility] Comment on above: Performed By: #### 2 84784 #### [facility],[address] [place], [place] [id number] CMP with eGFRon 01-17-2023 AGE 32 years Normal [facility] Comment on above: Performed By: #### 2 64255 #### [place] [id number] Albumin [Mass/Vol] 3.6 g/dL Normal 3.4 - 5.0 [facility] Comment on above: Performed By: #### 2 03477 #### [place] [id number] Albumin/Globulin [Mass ratio] 0.7 {ratio} Low 0.9 - 1.6 [facility] Comment on above: Performed By: #### 2 54685 #### [facility],[address] [place] [address]200 ALK PHOS 73 U/L Normal 46 - 116 [facility] Comment on above: Performed By: #### 2 25492 #### [facility],[address] [place] [address] ALT [Catalytic activity/Vol] 21 U/L Normal 14 - 59 [facility] Comment on above: Performed By: #### 2 37461 #### [facility],[address] [place] [address] Anion gap [Moles/Vol] 17 mmol/L Normal 10 - 20 [facility] Comment on above: Performed By: #### 2 36667 #### [facility],[address] [place], [place] [id number] AST [Catalytic activity/Vol] 12 U/L Low 13 - 39 [facility] Comment on above: Performed By: #### 2 28518 #### [facility],[address] [place], [place] [id number] B/C RATIO 9 ratio Normal 0 - 30 [facility] Comment on above: Performed By: #### 2 17393 #### [facility],[address] [place] [address]09 Bilirubin [Mass/Vol] 0.7 mg/dL Normal 0.2 - 1.0 [facility] Comment on above: Performed By: #### 2 45693 #### [facility],[address] [place] [address] Calcium [Mass/Vol] 9.1 mg/dL Normal 8.5 - 10.1 [facility] Comment on above: Performed By: #### 2 26552 #### [facility],[address] [place], [place] [id number] Chloride [Moles/Vol] 98 mmol/L Normal 98 - 107 [facility] Comment on above: Performed By: #### 2 71910 #### [facility],[address] [place] [address] 73766 CMP with eGFR Normal [facility] Comment on above: Result Comment: COMP REHENSIVE METABOLIC PANEL Performed By: #### 2 02124 #### [facility],[address] [place] [address]456 CO2 [Moles/Vol] 23.6 mmol/L Normal 21.0 - 32.0 [facility] Comment on above: Performed By: #### 2 53090 #### [facility],[address] [place] [address] Creatinine [Mass/Vol] 1.10 mg/dL High 0.55 - 1.02 [facility] Comment on above: Performed By: #### 2 55773 #### [facility],[address] [place] [address] 98570 eGFR 58 ML/MINUTE Low 60 - 999 [facility] Comment on above: Performed By: #### 2 16523 #### [facility],[address] [place] [address]44 GFR/1.73 sq M.predicted among non-blacks MDRD (S/P/Bld) [Vol rate/Area] mL/min/{1.73_m2} Normal 60 - 999 [facility] Comment on above: Result Comment: ACCO RDING TO THE NATIONAL KIDNEY DISEASE EDUCATION PROGRAM(NKDE), A NORMAL eGFR IS A VALUE GREATER THAN OR EQUAL TO 60 ML/MIN/1.73 SQ METERS. CHRONIC KIDNEY DISEASE: <60mL/MIN/1.73 SQ METERS KIDNEY FAILURE: <15mL/MIN/1.73 SQ METERS THIS TEST SHOULD ONLY BE USED FOR PATIENTS 18 YEARS OF AGE AND OLDER. Performed By: #### 2 33898 #### [facility],[address] [place] [address]310 Globulin (S) [Mass/Vol] 5.1 g/dL High 1.5 - 3.8 [facility] Comment on above: Performed By: #### 2 39624 #### [facility],[address] [place] [address] 67795 Glucose [Mass/Vol] 191 mg/dL High 74 - 106 [facility] Comment on above: Performed By: #### 2 04434 #### [facility],[address] [place] [address] 91765 Potassium [Moles/Vol] 3.7 mmol/L Normal 3.5 - 5.1 [facility] Comment on above: Performed By: #### 2 00633 #### [facility],[address] [place] [address] 59101 Protein [Mass/Vol] 8.7 g/dL High 6.4 - 8.2 [facility] Comment on above: Performed By: #### 2 68202 #### [facility],[address] [place] [address] 72538 Sodium [Moles/Vol] 135 mmol/L Low 136 - 145 [facility] Comment on above: Performed By: #### 2 87585 #### [facility],[address] [place] [address] 06980 Urea nitrogen [Mass/Vol] 10 mg/dL Normal 7 - 18 [facility] Comment on above: Performed By: #### 2 87765 #### [facility],[address] [place] [address] ABDOMEN/PELVIS [facility] 2022 CT ABDOMEN/PELVIS [place] [address] Patient: GHISLAINE GIVENS Phone#: : 1990 Age: 32 Gender: F Pt. Type: ER Account: [id number] Location: 052 Ordering: GERALDINE ASUNCION Exam Date: 01/17/2023/8:31 Family Phys: Charge Code: [id number] Physician: [place] Order #: [id number] Dose#: PROCEDURE: CT ABDOMEN/PELVIS WITH CONTRAST COMPARISON: [facility], CT, ABDOMEN/PELVIS W TERRA, 01/24/2022, 18:58. INDICATIONS: Abdominal pain. TECHNIQUE: After [...] 32 Gender: F Pt. Type: ER Account: [id number] Location: 052 Ordering: GERALDINE ASUNCION Exam Date: 01/17/2023/8:31 Family Phys: Charge Code: [id number] Physician: [place] Order #: [id number] Dose#: OTHER: Negative. CONCLUSION: 1. UNDER FILLING VERSUS MUCOSAL THICKENING AT THE RECTOSIGMOID COLON. Dictated by: Cristy Penaloza MD on 01/17/2023 at 9:14 Approved by: Cristy Penaloza MD on 01/17/2023 at 9:19 Normal [facility] DRUG SCREEN URINE MEDICon AMPHETAMINES Negative Normal [facility] Comment on above: Performed By: #### 2 39774 #### [facility],[address] [place] [address] 64466 B-DIAZEPINES Negative Normal [facility] Comment on above: Performed By: #### 2 62427 #### [facility],[address] [place] [address],[facility] [address] BARBITURATES Negative Normal [facility] Comment on above: Performed By: #### 2 90559 #### [facility],[address] [place] [address]41 COCAINE Negative [facility] Comment on above: Performed By: #### 2 09228 #### [facility],[address] [place] [address] 60409 DRUG SCREEN URINE MEDIC Normal [facility] Comment on above: Result Comment: DRUG SCREEN - URINE Performed By: #### 2 00698 #### [facility],[address] [place] [address] 33461 METHADONE Negative [facility] Comment on above: Performed By: #### 2 39907 #### [facility],[address] [place] [address] 94142 OPIATES Negative [facility] Comment on above: Performed By: #### 2 48393 #### [facility],[address] [place] [address] 17254 PCP Negative Normal [facility] Comment on above: Performed By: #### 2 11667 #### [facility],[address] [place] [address] 11030 THC Positive Normal [facility] Comment on above: Result Comment: ERASTO ENTS RECEIVING PROTON PUMP INHIBITORS MAY DEMONSTRATE FALSE POSITIVE THC/CANNABINOID RESULTS. AN ALTERNATIVE CONFIRMATORY METHOD SHOULD BE CONSIDERED TO VERIFY POSITIVE RESULTS. Performed By: #### 2 50887 #### [facility],[address] [place], [place] [id number] LIPASEon 01-17-2023 Lipase [Catalytic activity/Vol] 143.0 U/L Normal 73.0 - 393 [facility] Comment on above: Performed By: #### 2 16496 #### [facility],[address] [place] [address] SERUM QUALon 01-17 EXTERNAL QC DONE? YES Normal [facility] Comment on above: Performed By: #### 2 60448 #### [facility],[address] [place] [address] INTERNAL QC PASS Normal [facility] Comment on above: Performed By: #### 2 52954 #### [facility],[address] [place] [address] SER Negative Normal NEGATIVE [facility] Comment on above: Performed By: #### 2 73388 #### [facility],[address] [place], [place] [id number] URINALYSISon 01-17-2023 Amorphous NONE Normal [facility] Comment on above: Performed By: #### 2 37501 #### [facility],[address] [place] [address] Bacteria 1+ Normal [facility] Comment on above: Performed By: #### 2 [id number] #### [facility],[address] [place], [place] [id number] Bilirubin Ql (U) Negative Normal NORMAL: NEGATIVE [facility] Comment on above: Performed By: #### 2 [id number] #### [facility],[address] [place], [place] [id number] Casts NONE Normal [facility] Comment on above: Performed By: #### 2 [id number] #### [facility],[address] [place], [place] [id number] Clarity (U) clear Normal NORMAL: CLEAR [facility] Comment on above: Performed By: #### 2 [id number] #### [facility],[address] [place] [id number] Color (U) p.yel Normal NORMAL: YELLOW [facility] Comment on above: Performed By: #### 2 [id number] #### [facility],[address] [place] [id number] Crystals LM Nom (Urine sed) NONE Normal [facility] Comment on above: Performed By: #### 2 [id number] #### [facility],[address] [place] [address] [id number] Epi Cells MODERATE Normal [facility] Comment on above: Performed By: #### 2 [id number] #### [facility],[address] [place] [address]61 Glucose Ql (U) 50 Abnormal NORMAL: NORMAL [facility] Comment on above: Performed By: #### 2 [id number] #### [facility],[address] [place] [address] 27149 Hemoglobin Ql (U) Negative Normal NORMAL: NEGATIVE [facility] Comment on above: Performed By: #### 2 [id number] #### [facility],[address] [place] [address] 58410 Ketone 15 Abnormal NORMAL: NEGATIVE [facility] Comment on above: Performed By: #### 2 [id number] #### [facility],[address] [place] [address] 18135 Leukocytes 100 Abnormal NORMAL: NEGATIVE [facility] Comment on above: Performed By: #### 2 [id number] #### [facility],[address] [place] [address]502 Mucous NONE Normal [facility] Comment on above: Performed By: #### 2 [id number] #### [facility],[address] [place] [address] 73810 Nitrite Ql (U) Negative Normal NORMAL: NEGATIVE [facility] Comment on above: Performed By: #### 2 [id number] #### [facility],[address] [place] [address] pH (U) 7 [pH] Normal NORMAL: 5.0-8.0 [facility] Comment on above: Performed By: #### 2 [id number] #### [facility],[address] [place] [address] Protein Ql (U) Negative Normal NORMAL: NEGATIVE [facility] Comment on above: Performed By: #### 2 [id number] #### [facility],[address] [place] [address] Rbc NONE Normal 0-3/hpf [facility] Comment on above: Performed By: #### 2 [id number] #### [facility],[address] [place] [address] Sp [place] 1.005 Low NORMAL: 1.010-1.030 [facility] Comment on above: Performed By: #### 2 [id number] #### [facility],[address] [place] [address] Specimen Type UNSPECIFIED Normal [facility] Comment on above: Performed By: #### 2 [id number] #### [facility],[address] [place] [address] Urinalysis dipstick W Reflex Microscopic panel (U) SEE BELOW Normal [facility] Comment on above: Result Comment: MICR OSCOPIC Performed By: #### 2 [id number] #### [facility],[address] [place] [address] Urobilinog NORM Normal NORMAL: NORMAL [facility] Comment on above: Performed By: #### 2 [id number] #### [facility],[address] [place] [address] Wbc 1-5 Normal 0-5/hpf [facility] Comment on above: Performed By: #### 2 [id number] #### [facility],[address] [place] [address] Yeast NONE Normal [facility] Comment on above: Performed By: #### 2 [id number] #### [facility],[address] [address] Absolute lymphocyte countOrd ered By: Lexus Villatoro on 01-15-2023 Lymphocytes Auto (Unsp spec) [#/Vol] 3.20 10*3/uL 0.83-4.51 [facility] Basophil percentageOrdered B y: Lexus Villatoro on 01-15-2023 Basophil percentage 154 mg/dL 74-106 [facility] Basophil percentage 7.1 g/dL 6.4-8.2 [facility] Basophil percentage 0.60 mg/dL 0.20-1.00 [facility] Basophil percentage 136 mmol/L 136-145 [facility] Basophil percentage 3.1 mmol/L 3.5-5.1 [facility] Basophil percentage 105 mmol/L 98-107 [facility] Basophils (Bld) [#/Vol] 9.4 10*3/uL 4.4-11.0 [facility] Basophils (Bld) [#/Vol] 5.3 10*3/uL 2.0-7.7 [facility] Basophils/100 WBC (Bld) 0.3 % 0-[address] [facility] Basophils/100 WBC (Bld) 56.4 % 47-70 [facility] Bilirubin [Mass/Vol] 0.60 mg/dL 0.20-1.00 [facility] Comment on above: For patients on eltr ombopag therapy, use of Dimension [place] TBIL is not recommended. Chloride [Moles/Vol] 105 mmol/L 98-107 [facility] Eosinophils/100 WBC (Bld) 0.3 % 0-5 [facility] Glucose [Mass/Vol] 154 mg/dL 74-106 [facility] Comment on above: Fasting Glucose resu lt greater than or equal to 126 mg/dL suggests DIABETES MELLITUS per A.D.A. criteria. Neutrophils (Bld) [#/Vol] 5.3 10*3/uL 2.0-7.7 [facility] Neutrophils/100 WBC (Bld) 56.4 % 47-70 [facility] Potassium [Moles/Vol] 3.1 mmol/L 3.5-5.1 [facility] Protein [Mass/Vol] 7.1 g/dL 6.4-8.2 [facility] Sodium [Moles/Vol] 136 mmol/L 136-145 [facility] WBC (Bld) [#/Vol] 9.4 10*3/uL 4.4-11.0 [facility] Blood erythrocytes count (nu mber/volume)Ordered By: Lexus Villatoro on 01-15-2023 RBC (Bld) [#/Vol] 4.43 10*6/uL 4.2-5.4 [facility] Blood hemoglobin measurement (mass/volume)Ordered By: Lexus Villatoro on 01-15-2023 Hemoglobin (Bld) [Mass/Vol] 11.7 g/dL 12.0-15.0 [facility] Blood lymphocytes/100 leukoc ytesOrdered By: Lexus Villatoro on 01-15-2023 Lymphocytes/100 WBC (Bld) 34.2 % 19-41 [facility] Blood monocytes/100 leukocyt esOrdered By: Lexus Villatoro on 01-15-2023 Monocytes/100 WBC (Bld) 8.2 % 0-10 [facility] Blood platelet mean volumeOr dered By: Lexus Villatoro on 01-15-2023 Platelet mean volume (Bld) [Entitic vol] 9.3 fL 6.2-12.0 [facility] Determination of erythrocyte mean corpuscular volume (MCV)Ordered By: Lexus Villatoro on 01-15-2023 MCV (RBC) [Entitic vol] 80.4 fL 81-[address] [facility] Glucose Glucometer (dC) [M ass/Vol]Ordered By: Lexus Villatoro on 01-15-2023 Glucose [Mass/Vol] 247 mg/dL 74-106 [facility] Comment on above: MANAGEMENT OF PATIEN T CARE PER NURSING PROTOCOL Hematocrit Auto (Bld) [Volum e fraction]Ordered By: Lexus Villatoro on 01-15-2023 Hematocrit (Bld) [Volume fraction] 35.6 % 37-47 [facility] Laboratory - Chemistry and C hemistry - challengeOrdered By: Lexus Villatoro on 01-15-2023 ALP [Catalytic activity/Vol] 54 U/L 45-117 [facility] ALT [Catalytic activity/Vol] 14 U/L 13-56 [facility] CO2 [Moles/Vol] 26.0 mmol/L 21.0-32.0 [facility] Globulin (S) [Mass/Vol] 4.1 g/dL 2.2-4.[address] [facility] Magnesium [Mass/Vol] 2.0 mg/dL 1.6-2.6 [facility] Urea nitrogen/Creatinine [Mass ratio] 6.6 mg/mg 10-20 [facility] Laboratory - Hematology and Cell countsOrdered By: Lexus Villatoro on 01-15-2023 Erythrocyte distribution width (RBC) [Entitic vol] 40.1 fL 35.1-43.9 [facility] Erythrocyte distribution width (RBC) [Ratio] 13.8 % 11.6-14.6 [facility] Immature granulocytes/100 WBC (Bld) 0.600 % 0.0-0.9 [facility] Comment on above: IG% - Immature Granu locytes (promyelocytes, myelocytes and metamyelocytes) > 1% indicates that a LEFT SHIFT is Present. MCH (RBC) [Entitic mass] 26.4 pg 27.0-32.0 [facility] Nucleated RBC/100 WBC (Bld) [Ratio] 0 % 0-5 [facility] MCHC Auto (RBC) [Mass/Vol]Or dered By: Lexus Villatoro on 01-15-2023 MCHC (RBC) [Mass/Vol] 32.9 g/dL 32-36 [facility] No Panel InformationOrdered By: Lexus Villatoro on 01-15-2023 Estimated Creatinine Clearance Calc 84.62 ml/min [facility] Estimated GFR (MDRD) Amer 93 mL/min >60 [facility] Comment on above: GFR Calc Estimated GFR (MDRD) Non-Af Amer 77 mL/min >60 [facility] Comment on above: Non- GFR Calc Thyroid Stimulating Hormone (TSH) 2.30 uIU/mL 0.358-3.74 [facility] 26.4 pg 27.0-32.0 [facility] 13.8 % 11.6-14.6 [facility] 40.1 fl 35.1-43.9 [facility] 0.600 % 0.0-0.9 [facility] 0 % 0-5 [facility] 77 mL/min >60 [facility] 93 mL/min >60 [facility] 84.62 ml/min [facility] 6.6 RATIO 10-20 [facility] 4.1 g/dL 2.2-4.2 [facility] 54 U/L 45-117 [facility] 14 U/L 13-56 [facility] 2.0 mg/dL 1.6-2.6 [facility] 26.0 mmol/L 21.0-32.0 [facility] 2.30 uIU/mL 0.358-3.74 [facility] Platelets bldOrdered By: Porsche Villatoro on 01-15-2023 Platelets (Bld) [#/Vol] 361 10*3/uL 150-450 [facility] Serum or plasma albumin hussein urement (mass/volume)Ordered By: Lexus Villatoro on 01-15-2023 Albumin [Mass/Vol] 3.0 g/dL 3.2-5.0 [facility] Serum or plasma albumin/glob ulin mass ratioOrdered By: Lexus Villatoro on 01-15-2023 Albumin/Globulin [Mass ratio] 0.7 {ratio} 0.9-2.4 [facility] Serum or plasma calcium hussein urement (mass/volume)Ordered By: Lexus Villatoro on 01-15-2023 Calcium [Mass/Vol] 8.2 mg/dL 8.5-10.1 [facility] Serum or plasma creatinine m easurement (mass/volume)Ordered By: Lexus Villatoro on 01-15-2023 Creatinine [Mass/Vol] 0.91 mg/dL 0.55-1.02 [facility] Comment on above: The validity of the calculated GFR & GFRAA in patients over 70 years has not been determined. Clinical correlation is essential. Serum or plasma urea nitroge n measurement (mass/volume)Ordered By: Lexus Villatoro on 01-15-2023 Urea nitrogen [Mass/Vol] 6 mg/dL 7-18 [facility] Thin prep Papanicolaou smear with manual screeningOrdered By: Lexus Villatoro on 01-15-2023 Thin prep Papanicolaou smear with manual screening 13 U/L 15-37 [facility] Thin prep Papanicolaou smear with manual screening 5 5-15 [facility] Bacteria identified Cx Nom ( U)Ordered By: Willie Dhillon on 01-14-2023 Culture, urine Positive [facility] Basophil percentageOrdered B y: Wlilie Dhillon on 01-14-2023 Basophil percentage 1.3 mmol/L 0.4-2.0 [facility] Lactate [Moles/Vol] 1.3 mmol/L 0.4-2.0 [facility] Basophil percentage 0-5 SEEN /hpf 0-5 [facility] Beta hCG serum qualOrdered B y: Willie Dhillon on 01-14-2023 Beta HCG ( test) Ql Negative [facility] Bilirubin Test strip Ql (U)O rdered By: Willie Dhillon on 01-14-2023 Bilirubin Ql (U) Negative Negative [facility] Culture, urineOrdered By: Reji March on 01-14-2023 Bacteria identified Cx Nom (U) Positive [facility] Ketones Test strip Ql (U)Ord ered By: Willie Dhillon on 01-14-2023 Ketones Ql (U) 5 mg/dl Negative [facility] Laboratory - Drug toxicology Ordered By: Lexus Villatoro on 01-14-2023 Amphetamines Ql (U) Negative <1000 ng/mL [facility] Benzodiazepines Ql (U) Negative < 200 ng/mL [facility] Cannabinoids Screen Ql (U) Positive < 50 ng/mL [facility] Cocaine Ql (U) Negative < 300 ng/mL [facility] Opiates Ql (U) Negative < 300 ng/mL [facility] Mucus LM Ql (Urine sed)Order ed By: Willie Dhillon on 01-14-2023 Mucus Ql (Urine sed) 0 SEEN /hpf [facility] Nitrite Test strip Ql (U)Ord ered By: Willie Dhillon on 01-14-2023 Nitrite Ql (U) Negative Negative [facility] No Panel InformationOrdered By: Lexus Villatoro on 01-14-2023 MDMA (Ecstasy) Screen Negative < 500 ng/mL [facility] Urine Barbiturates Screen Negative < 200 ng/mL [facility] Urine Drug Screen Comment [facility] Comment on above: CONFIRMATORY TESTING FOR ALL [...] Methadone Screen Negative < 300 ng/mL [facility] Negative < 300 ng/mL [facility] Positive < 50 ng/mL [facility] Protein Test strip Ql (U)Ord ered By: Willie Dhillon on 01-14-2023 Protein Ql (U) 15 mg/dl Negative [facility] Squamous epithelial cells de tection in urine sediment by light microscopyOrdered By: Willie Dhillon on 01-14-2023 Epithelial cells.squamous LM Ql (Urine sed) 0-5 SEEN /hpf 5-10 [facility] Urine blood detectionOrdered By: Willie Dhillon on 01-14-2023 RBC Ql (U) 10 /ul Negative [facility] RBC Ql (U) 0-5 SEEN /hpf 0-5 [facility] Urine clarityOrdered By: Heath Dhillon on 01-14-2023 Clarity (U) Clear Clear [facility] Urine color determinationOrd ered By: Willie Dhillon on 01-14-2023 Color (U) Yellow Yellow [facility] Urine glucose detectionOrder ed By: Willie Dhillon on 01-14-2023 Glucose Ql (U) 250 mg/dl Normal [facility] Urine leukocyte esterase det ection by dipstickOrdered By: Willie Dhillon on 01-14-2023 Leukocyte esterase Test strip Ql (U) 25 /ul Negative [facility] Urine pHOrdered By: Willie mo on 01-14-2023 pH (U) 8.0 [pH] 5.0 - 8.0 [facility] Urine phencyclidine (PCP) de tectionOrdered By: Lexus Villatoro on 01-14-2023 Phencyclidine Ql (U) Negative < 25 ng/mL [facility] Urine sediment bacteria coun t by microscopy (number/high power field)Ordered By: Willie Dhillon on 01-14-2023 Bacteria LM.HPF (Urine sed) [#/Area] RARE /hpf None Seen [facility] Urine specific gravity measu rementOrdered By: Willie Dhillon on 01-14-2023 Specific gravity (U) [Rel density] 1.015 1.002-1.030 [facility] Urobilinogen Auto test strip Ql (U)Ordered By: Willie Dhillon on 01-14-2023 Urobilinogen Ql (U) Normal mg/dl Normal [facility] Basophil percentageOrdered B y: Deann Guerrero on 01-13-2023 Basophil percentage 25-50 SEEN /hpf 0-5 [facility] Basophil percentage 235 mg/dL 74-106 [facility] Basophil percentage 137 mmol/L 136-145 [facility] Basophil percentage 3.2 mmol/L 3.5-5.1 [facility] Basophil percentage 107 mmol/L 98-107 [facility] Chloride [Moles/Vol] 107 mmol/L 98-107 [facility] Glucose [Mass/Vol] 235 mg/dL 74-106 [facility] Comment on above: Glucose result great er than or equal to 200 mg/dLsuggests DIABETES MELLITUS per A.D.A. criteria. Potassium [Moles/Vol] 3.2 mmol/L 3.5-5.1 [facility] Sodium [Moles/Vol] 137 mmol/L 136-145 [facility] Beta hCG serum qualOrdered B y: Deann Guerrero on 01-13-2023 Beta HCG ( test) Ql Negative [facility] Bilirubin Test strip Ql (U)O rdered By: Deann Guerrero on 01-13-2023 Bilirubin Ql (U) Negative Negative [facility] Ketones Test strip Ql (U)Ord ered By: Deann Guerrero on 01-13-2023 Ketones Ql (U) 15 mg/dl Negative [facility] Laboratory - Chemistry and C hemistry - challengeOrdered By: Deann Guerrero on 01-13-2023 CO2 [Moles/Vol] 23.0 mmol/L 21.0-32.0 [facility] Urea nitrogen/Creatinine [Mass ratio] 7.6 mg/mg 10- [facility] Mucus LM Ql (Urine sed)Order ed By: Deann Guerrero on 01-13-2023 Mucus Ql (Urine sed) 1+ /hpf [facility] Nitrite Test strip Ql (U)Ord ered By: Deann Guerrero on 01-13-2023 Nitrite Ql (U) Negative Negative [facility] No Panel InformationOrdered By: Deann Guerrero on 01-13-2023 Estimated Creatinine Clearance Calc 73.34 ml/min [facility] Estimated GFR (MDRD) Amer 79 mL/min >60 [facility] Comment on above: GFR Calc Estimated GFR (MDRD) Non-Af Amer 65 mL/min >60 [facility] Comment on above: Non- GFR Calc 65 mL/min >60 [facility] 79 mL/min >60 [facility] 73.34 ml/min [facility] 7.6 RATIO 04-30 [facility] 23.0 mmol/L 21.0-32.0 [facility] Protein Test strip Ql (U)Ord ered By: Deann Guerrero on 01-13-2023 Protein Ql (U) 30 mg/dl Negative [facility] Serum or plasma calcium hussein urement (mass/volume)Ordered By: Deann Guerrero on 01-13-2023 Calcium [Mass/Vol] 8.5 mg/dL 8.5-10.1 [facility] Serum or plasma creatinine m easurement (mass/volume)Ordered By: Deann Guerrero on 01-13-2023 Creatinine [Mass/Vol] 1.05 mg/dL 0.55-1.02 [facility] Comment on above: The validity of the calculated GFR & GFRAA in patients over 70 years has not been determined. Clinical correlation is essential. Serum or plasma urea nitroge n measurement (mass/volume)Ordered By: Deann Guerrero on 01-13-2023 Urea nitrogen [Mass/Vol] 8 mg/dL 7-18 [facility] Squamous epithelial cells de tection in urine sediment by light microscopyOrdered By: Deann Guerrero on 01-13-2023 Epithelial cells.squamous LM Ql (Urine sed) 5-10 SEEN /hpf 5-10 [facility] Thin prep Papanicolaou smear with manual screeningOrdered By: Deann Guerrero on 01-13-2023 Thin prep Papanicolaou smear with manual screening 7 5-15 [facility] Urine blood detectionOrdered By: Deann Guerrero on 01-13-2023 RBC Ql (U) 10 /ul Negative [facility] RBC Ql (U) 0-5 SEEN /hpf 0-5 [facility] Urine clarityOrdered By: Sulema Guerrero on 01-13-2023 Clarity (U) Sl. Cloudy Clear [facility] Urine color determinationOrd ered By: Deann Guerrero on 01-13-2023 Color (U) Yellow Yellow [facility] Urine glucose detectionOrder ed By: Deann Guerrero on 01-13-2023 Glucose Ql (U) 250 mg/dl Normal [facility] Urine leukocyte esterase det ection by dipstickOrdered By: Deann Guerrero on 01-13-2023 Leukocyte esterase Test strip Ql (U) 500 /ul Negative [facility] Urine pHOrdered By: Deann Guerrero on 01-13-2023 pH (U) 6.0 [pH] 5.0 - 8.0 [facility] Urine sediment bacteria coun t by microscopy (number/high power field)Ordered By: Deann Guerrero on 01-13-2023 Bacteria LM.HPF (Urine sed) [#/Area] 1 /[HPF] None Seen [facility] Urine specific gravity measu rementOrdered By: Deann Guerrero on 01-13-2023 Specific gravity (U) [Rel density] 1.020 1.002-1.030 [facility] Urobilinogen Auto test strip Ql (U)Ordered By: Deann Guerrero on 01-13-2023 Urobilinogen Ql (U) 1 mg/dl Normal [facility] Absolute lymphocyte countOrd ered By: Perico Norman on 01-12-2023 Lymphocytes Auto (Unsp spec) [#/Vol] 1.80 10*3/uL 0.83-4.51 [facility] Basophil percentageOrdered B y: Fabricio Guevara on 01-12-2023 Basophil percentage 208 mg/dL 74-106 [facility] Basophil percentage 137 mmol/L 136-145 [facility] Basophil percentage 3.0 mmol/L 3.5-5.1 [facility] Basophil percentage 105 mmol/L 98-107 [facility] Chloride [Moles/Vol] 105 mmol/L 98-107 [facility] Glucose [Mass/Vol] 208 mg/dL 74-106 [facility] Comment on above: Glucose result great er than or equal to 200 mg/dLsuggests DIABETES MELLITUS per A.D.A. criteria. Potassium [Moles/Vol] 3.0 mmol/L 3.5-5.1 [facility] Sodium [Moles/Vol] 137 mmol/L 136-145 [facility] Basophil percentageOrdered B y: Perico Norman on 01-12-2023 Basophil percentage 267 mg/dL 74-106 [facility] Basophil percentage 7.8 g/dL 6.4-8.2 [facility] Basophil percentage 0.40 mg/dL 0.20-1.00 [facility] Basophil percentage 134 mmol/L 136-145 [facility] Basophil percentage 3.4 mmol/L 3.5-5.1 [facility] Basophil percentage 101 mmol/L 98-107 [facility] Basophils (Bld) [#/Vol] 12.4 10*3/uL 4.4-11.0 [facility] Basophils (Bld) [#/Vol] 9.9 10*3/uL 2.0-7.7 [facility] Basophils/100 WBC (Bld) 0.3 % 0-[address] [facility] Basophils/100 WBC (Bld) 79.6 % 47-[address] [facility] Basophils/100 WBC (Bld) 0.0 % 0-[address] [facility] Bilirubin [Mass/Vol] 0.40 mg/dL 0.20-1.00 [facility] Comment on above: For patients on eltr ombopag therapy, use of Dimension [place] TBIL is not recommended. Chloride [Moles/Vol] 101 mmol/L 98-107 [facility] Eosinophils/100 WBC (Bld) 0.0 % 0-5 [facility] Glucose [Mass/Vol] 267 mg/dL 74-106 [facility] Comment on above: Glucose result great er than or equal to 200 mg/dLsuggests DIABETES MELLITUS per A.D.A. criteria. Neutrophils (Bld) [#/Vol] 9.9 10*3/uL 2.0-7.7 [facility] Neutrophils/100 WBC (Bld) 79.6 % 47-70 [facility] Potassium [Moles/Vol] 3.4 mmol/L 3.5-5.1 [facility] Protein [Mass/Vol] 7.8 g/dL 6.4-8.2 [facility] Sodium [Moles/Vol] 134 mmol/L 136-145 [facility] WBC (Bld) [#/Vol] 12.4 10*3/uL 4.4-11.0 [facility] Blood erythrocytes count (nu mber/volume)Ordered By: Perico Norman on 01-12-2023 RBC (Bld) [#/Vol] 4.62 10*6/uL 4.2-5.4 [facility] Blood hemoglobin measurement (mass/volume)Ordered By: Perico Norman on 01-12-2023 Hemoglobin (Bld) [Mass/Vol] 12.1 g/dL 12.0-15.0 [facility] Blood lymphocytes/100 leukoc ytesOrdered By: Perico Norman on 01-12-2023 Lymphocytes/100 WBC (Bld) 14.5 % 19-41 [facility] Blood monocytes/100 leukocyt esOrdered By: Perico Norman on 01-12-2023 Monocytes/100 WBC (Bld) 5.0 % 0-[address] [facility] Blood platelet mean volumeOr dered By: Perico Norman on 01-12-2023 Platelet mean volume (Bld) [Entitic vol] 9.0 fL 6.2-12.0 [facility] Determination of erythrocyte mean corpuscular volume (MCV)Ordered By: Perico Norman on 01-12-2023 MCV (RBC) [Entitic vol] 81.0 fL 81-[address] [facility] Direct bilirubinOrdered By: Perico Norman on 01-12-2023 Bilirubin.direct [Mass/Vol] 0.14 mg/dL 0.00-0.30 [facility] Hematocrit Auto (Bld) [Volum e fraction]Ordered By: Perico Norman on 01-12-2023 Hematocrit (Bld) [Volume fraction] 37.4 % 37-47 [facility] Laboratory - Chemistry and C hemistry - challengeOrdered By: Fabricio Guevara on 01-12-2023 CO2 [Moles/Vol] 26.0 mmol/L 21.0-32.0 [facility] Urea nitrogen/Creatinine [Mass ratio] 7.0 mg/mg 04-30 [facility] Laboratory - Chemistry and C hemistry - challengeOrdered By: Perico Norman on 01-12-2023 ALP [Catalytic activity/Vol] 68 U/L 45-117 [facility] ALT [Catalytic activity/Vol] 14 U/L 13-56 [facility] CO2 [Moles/Vol] 24.0 mmol/L 21.0-32.0 [facility] Globulin (S) [Mass/Vol] 4.5 g/dL 2.2-4.[address] [facility] Lipase [Catalytic activity/Vol] 37 U/L 13-75 [facility] Comment on above: Please note:LIPASE r evised reference range effective 22. New Lipase methodology. Expected to produce lower values than the previous assay method. NEW Reference Range: 13 - 75 U/L Urea nitrogen/Creatinine [Mass ratio] 9.7 mg/mg 04-30 [facility] Laboratory - Hematology and Cell countsOrdered By: Perico Norman on 01-12-2023 Erythrocyte distribution width (RBC) [Entitic vol] 38.9 fL 35.1-43.9 [facility] Erythrocyte distribution width (RBC) [Ratio] 13.7 % 11.6-14.6 [facility] Immature granulocytes/100 WBC (Bld) 0.600 % 0.0-0.9 [facility] Comment on above: IG% - Immature Granu locytes (promyelocytes, myelocytes and metamyelocytes) > 1% indicates that a LEFT SHIFT is Present. MCH (RBC) [Entitic mass] 26.2 pg 27.0-32.0 [facility] Nucleated RBC/100 WBC (Bld) [Ratio] 0 % 0-5 [facility] MCHC Auto (RBC) [Mass/Vol]Or dered By: Perico Norman on 01-12-2023 MCHC (RBC) [Mass/Vol] 32.4 g/dL 32-36 [facility] No Panel InformationOrdered By: Fabricio Guevara on 01-12-2023 Estimated Creatinine Clearance Calc 77.01 ml/min [facility] Estimated GFR (MDRD) Amer 84 mL/min >60 [facility] Comment on above: GFR Calc Estimated GFR (MDRD) Non-Af Amer 69 mL/min >60 [facility] Comment on above: Non- GFR Calc 69 mL/min >60 [facility] 84 mL/min >60 [facility] 77.01 ml/min [facility] 7.0 RATIO 10-20 [facility] 26.0 mmol/L 21.0-32.0 [facility] No Panel InformationOrdered By: Perico Norman on 01-12-2023 Estimated Creatinine Clearance Calc 68.15 ml/min [facility] Estimated GFR (MDRD) Amer 72 mL/min >60 [facility] Comment on above: GFR Calc Estimated GFR (MDRD) Non-Af Amer 60 mL/min >60 [facility] Comment on above: Non- GFR Calc 26.2 pg 27.0-32.0 [facility] 13.7 % 11.6-14.6 [facility] 38.9 fl 35.1-43.9 [facility] 0.600 % 0.0-0.9 [facility] 0 % 0-5 [facility] 60 mL/min >60 [facility] 72 mL/min >60 [facility] 68.15 ml/min [facility] 9.7 RATIO 10-20 [facility] 4.5 g/dL 2.2-4.2 [facility] 37 U/L 13-75 [facility] 68 U/L 45-117 [facility] 14 U/L 13-56 [facility] 24.0 mmol/L 21.0-32.0 [facility] Platelets bldOrdered By: Bakari Norman on 01-12-2023 Platelets (Bld) [#/Vol] 352 10*3/uL 150-450 [facility] Serum or plasma albumin hussein urement (mass/volume)Ordered By: Perico Norman on 01-12-2023 Albumin [Mass/Vol] 3.3 g/dL 3.2-5.0 [facility] Serum or plasma calcium hussein urement (mass/volume)Ordered By: Fabricio Guevara on 01-12-2023 Calcium [Mass/Vol] 8.7 mg/dL 8.5-10.1 [facility] Serum or plasma calcium hussein urement (mass/volume)Ordered By: Perico Norman on 01-12-2023 Calcium [Mass/Vol] 9.0 mg/dL 8.5-10.1 [facility] Serum or plasma creatinine m easurement (mass/volume)Ordered By: Fabricio Guevara on 01-12-2023 Creatinine [Mass/Vol] 1.00 mg/dL 0.55-1.02 [facility] Comment on above: The validity of the calculated GFR & GFRAA in patients over 70 years has not been determined. Clinical correlation is essential. Serum or plasma creatinine m easurement (mass/volume)Ordered By: Perico Norman on 01-12-2023 Creatinine [Mass/Vol] 1.13 mg/dL 0.55-1.02 [facility] Comment on above: The validity of the calculated GFR & GFRAA in patients over 70 years has not been determined. Clinical correlation is essential. Serum or plasma urea nitroge n measurement (mass/volume)Ordered By: Fabricio Guevara on 01-12-2023 Urea nitrogen [Mass/Vol] 7 mg/dL 01-26 [facility] Serum or plasma urea nitroge n measurement (mass/volume)Ordered By: Perico Norman on 01-12-2023 Urea nitrogen [Mass/Vol] 11 mg/dL 7-18 [facility] Thin prep Papanicolaou smear with manual screeningOrdered By: Fabricio Guevara on 01-12-2023 Thin prep Papanicolaou smear with manual screening 6 5-15 [facility] Thin prep Papanicolaou smear with manual screeningOrdered By: Perico Norman on 01-12-2023 Thin prep Papanicolaou smear with manual screening 12 U/L 15-37 [facility] Thin prep Papanicolaou smear with manual screening 9 5-15 [facility] .Auto Diffon 01-10-2023 Basophil, Absolute 0.0 10 3/mcL Normal 0.0-0.2 [facility] ([place]) Comment on above: Performed By: #### A DIFF, GFR, MDW, CMP, ANEU, CBC, LIP #### [address] [address] Basophils/100 WBC (Bld) 0.2 % Normal 0.0-2.5 [facility] ([place]) Comment on above: Performed By: #### A DIFF, GFR, MDW, CMP, ANEU, CBC, LIP #### [address] [address] Eosinophil, Absolute 0.0 10 3/mcL Normal 0.0-0.4 [facility] ([place]) Comment on above: Performed By: #### A DIFF, GFR, MDW, CMP, ANEU, CBC, LIP #### [address] [address] Eosinophils/100 WBC (Bld) 0.1 % Normal 0.0-7.0 [facility] ([place]) Comment on above: Performed By: #### A DIFF, GFR, MDW, CMP, ANEU, CBC, LIP #### [address] [address] Lymphocyte, Absolute 2.7 10 3/mcL Normal 0.8-3.9 [facility] ([place]) Comment on above: Performed By: #### A DIFF, GFR, MDW, CMP, ANEU, CBC, LIP #### [address] [address] Lymphocytes/100 WBC (Bld) 17.3 % Normal 10.0-50.0 [facility] ([place]) Comment on above: Performed By: #### A DIFF, GFR, MDW, CMP, ANEU, CBC, LIP #### [address] [address] Monocyte, Absolute 0.9 10 3/mcL Normal 0.2-1.0 [facility] ([place]) Comment on above: Performed By: #### A DIFF, GFR, MDW, CMP, ANEU, CBC, LIP #### [address] [address] Monocytes/100 WBC (Bld) 5.7 % Normal 1.7-13.0 [facility] ([place]) Comment on above: Performed By: #### A DIFF, GFR, MDW, CMP, ANEU, CBC, LIP #### [address] [address] Neutrophils/100 WBC (Bld) 76.7 % Normal 37.0-80.0 [facility] ([place]) Comment on above: Performed By: #### A DIFF, GFR, MDW, CMP, ANEU, CBC, LIP #### [address] [address] .GFRon 01-10-2023 GFR 64 ml/min/1.73sqm Normal [facility] ([place]) Comment on above: Result Comment: GFR [...] GFR, MDW, CMP, ANEU, CBC, LIP #### [address] [address] GFR Non- 53 ml/min/1.73sqm Normal [facility] ([place]) Comment on above: Result Comment: GFR [...] GFR, MDW, CMP, ANEU, CBC, LIP #### [place] [address] .MDWon 01-10-2023 Monocyte Distribution Width 14.44 Normal 0.00-20.00 [facility] ([place]) Comment on above: Result Comment: For ED adult patients suspected of sepsis, MDW<=20.0 does not rule out sepsis or risk of sepsis Performed By: #### A DIFF, GFR, MDW, CMP, ANEU, CBC, LIP #### [place] [address] .NEUABSon 01-10-2023 Neutrophil, Absolute 11.9 10 3/mcL High 2.9-6.2 [facility] ([place]) Comment on above: Performed By: #### A DIFF, GFR, MDW, CMP, ANEU, CBC, LIP #### [place] [address] .Urinalysis Microscopic (AO) on 01-10-2023 UA Bacteria Trace Abnormal [facility] ([place]) Comment on above: Performed By: #### A DIFF, GFR, MDW, CMP, ANEU, CBC, LIP #### [place] [id number] UA RBC 0-5 Abnormal None Seen [facility] ([place] Comment on above: Performed By: #### A DIFF, GFR, MDW, CMP, ANEU, CBC, LIP #### [place] [id number] UA Squam Epithelial LOADED Abnormal None Seen [facility] ([place]) Comment on above: Performed By: #### A DIFF, GFR, MDW, CMP, ANEU, CBC, LIP #### [place] [address] UA WBC 0-5 Abnormal None Seen [facility] ([place] Comment on above: Performed By: #### A DIFF, GFR, MDW, CMP, ANEU, CBC, LIP #### [address] [address] UA Yeast Trace Abnormal [facility] ([place] Comment on above: Performed By: #### A DIFF, GFR, MDW, CMP, ANEU, CBC, LIP #### [place] [id number] CBCon 01-10-2023 Erythrocyte distribution width (RBC) [Ratio] 14.7 % High 11.5-14.5 [facility] ([place]) Comment on above: Performed By: #### A DIFF, GFR, MDW, CMP, ANEU, CBC, LIP #### [place] [id number] Hematocrit (Bld) [Volume fraction] 38.7 % Normal 37.0-47.0 [facility] ([place]) Comment on above: Performed By: #### A DIFF, GFR, MDW, CMP, ANEU, CBC, LIP #### [place] [phone] Hgb 12.9 G/dL Normal 12.0-16.0 [facility] ([place] Comment on above: Performed By: #### A DIFF, GFR, MDW, CMP, ANEU, CBC, LIP #### [place] [phone] MCH (RBC) [Entitic mass] 25.7 pg Low 27.0-31.2 [facility] ([place] Comment on above: Performed By: #### A DIFF, GFR, MDW, CMP, ANEU, CBC, LIP #### [place] [phone] MCHC 33.3 G/dL Normal 33.0-37.0 [facility] ([place]) Comment on above: Performed By: #### A DIFF, GFR, MDW, CMP, ANEU, CBC, LIP #### [place] [phone] MCV (RBC) [Entitic vol] 77.4 fL Low 80.0-94.0 [facility] ([place]) Comment on above: Performed By: #### A DIFF, GFR, MDW, CMP, ANEU, CBC, LIP #### [address] [address] Platelet 438 10 3/mcL High 130-400 [facility] ([place]) Comment on above: Performed By: #### A DIFF, GFR, MDW, CMP, ANEU, CBC, LIP #### [address] [address] Platelet mean volume (Bld) [Entitic vol] 7.2 fL Low 7.4-10.4 [facility] ([place]) Comment on above: Performed By: #### A DIFF, GFR, MDW, CMP, ANEU, CBC, LIP #### [address] [address] RBC 5.01 10 6/mcL Normal 4.20-5.40 [facility] ([place]) Comment on above: Performed By: #### A DIFF, GFR, MDW, CMP, ANEU, CBC, LIP #### [address] [address] WBC 15.5 10 3/mcL High 4.6-10.8 [facility] ([place]) Comment on above: Performed By: #### A DIFF, GFR, MDW, CMP, ANEU, CBC, LIP #### [address] [address] CMPon 01-10-2023 Albumin Level 3.9 G/dL Normal 3.5-5.0 [facility] ([place]) Comment on above: Performed By: #### A DIFF, GFR, MDW, CMP, ANEU, CBC, LIP #### [address] [address] Albumin/Globulin [Mass ratio] 0.9 {ratio} Low 1.1-2.5 [facility] ([place]) Comment on above: Performed By: #### A DIFF, GFR, MDW, CMP, ANEU, CBC, LIP #### [address] [address] ALP [Catalytic activity/Vol] 84 U/L Normal 40-135 [facility] ([place]) Comment on above: Performed By: #### A DIFF, GFR, MDW, CMP, ANEU, CBC, LIP #### [address] [address] ALT [Catalytic activity/Vol] 17 U/L Normal 14-59 [facility] ([place]) Comment on above: Performed By: #### A DIFF, GFR, MDW, CMP, ANEU, CBC, LIP #### [address] [address] AST [Catalytic activity/Vol] 13 U/L Normal 10-40 [facility] ([place]) Comment on above: Performed By: #### A DIFF, GFR, MDW, CMP, ANEU, CBC, LIP #### [address] [address] Bili Total 0.6 mg/dL Normal 0.2-1.0 [facility] ([place]) Comment on above: Result Comment: Use of this assay is not recommended for patients undergoing treatment with eltrombopag due to the potential for falsely elevated results. Performed By: #### A DIFF, GFR, MDW, CMP, ANEU, CBC, LIP #### [address] [address] BUN/Creatinine Ratio 11 ratio Normal 7-27 [facility] ([place]) Comment on above: Performed By: #### A DIFF, GFR, MDW, CMP, ANEU, CBC, LIP #### [address] [address] Calcium [Mass/Vol] 9.4 mg/dL Normal 8.4-10.2 [facility] ([place]) Comment on above: Performed By: #### A DIFF, GFR, MDW, CMP, ANEU, CBC, LIP #### [address] [address] Chloride [Moles/Vol] 99 mmol/L Normal 98-107 [facility] ([place]) Comment on above: Performed By: #### A DIFF, GFR, MDW, CMP, ANEU, CBC, LIP #### [address] [address] CO2 [Moles/Vol] 22 mmol/L Normal 22-29 [facility] ([place] Comment on above: Performed By: #### A DIFF, GFR, MDW, CMP, ANEU, CBC, LIP #### [address] [address] Creatinine [Mass/Vol] 1.20 mg/dL High 0.55-1.02 [facility] ([place]) Comment on above: Performed By: #### A DIFF, GFR, MDW, CMP, ANEU, CBC, LIP #### [address] [address] Electrolyte Balance 17.0 mEq/L High 4.0-15.0 [facility] ([place]) Comment on above: Performed By: #### A DIFF, GFR, MDW, CMP, ANEU, CBC, LIP #### [address] [address] Globulin 4.4 G/dL Normal [facility] ([place]) Comment on above: Performed By: #### A DIFF, GFR, MDW, CMP, ANEU, CBC, LIP #### [address] [address] Glucose [Mass/Vol] 270 mg/dL High 70-105 [facility] ([place]) Comment on above: Performed By: #### A DIFF, GFR, MDW, CMP, ANEU, CBC, LIP #### [address] [address] Potassium [Moles/Vol] 3.4 mmol/L Low 3.5-5.1 [facility] ([place]) Comment on above: Performed By: #### A DIFF, GFR, MDW, CMP, ANEU, CBC, LIP #### [address] [address] Sodium [Moles/Vol] 138 mmol/L Normal 136-145 [facility] ([place]) Comment on above: Performed By: #### A DIFF, GFR, MDW, CMP, ANEU, CBC, LIP #### [facility] [address] [place], [place] [address] Total Protein 8.3 G/dL High 6.4-8.2 [facility] ([place]) Comment on above: Performed By: #### A DIFF, GFR, MDW, CMP, ANEU, CBC, LIP #### [facility] [address] [place], [place] [address] Urea nitrogen [Mass/Vol] 13 mg/dL Normal 7-18 [facility] ([place] Comment on above: Performed By: #### A DIFF, GFR, MDW, CMP, ANEU, CBC, LIP #### [place] [id number] [place], [place] [address] CT ABD/PELVIS W/ IV CONTRAST ONLYon 01-10-2023 [...] 01/10/2023 4:59:31 PM Ordering Provider: ESSIE DOWNS [facility] ([place]) LABORATORYOrdered By: Leho SYSTEM on 01-10-2023 Albumin BCP dye [Mass/Vol] [...] 01-10-2023 Lipase Level 39 U/L Normal 16-77 [facility] ([place]) Comment on above: Performed By: #### A DIFF, GFR, MDW, CMP, ANEU, CBC, LIP #### Michael [address] [address] PREGUon 01-10-2023 HCG ( test) Ql (U) Negative Normal [facility] ([place]) Comment on above: Performed By: #### A DIFF, GFR, MDW, CMP, ANEU, CBC, LIP #### [address] [address] test (u) int Not detected Invalid Interpretation Code [facility] ([place]) Comment on above: Performed By: #### A DIFF, GFR, MDW, CMP, ANEU, CBC, LIP #### [address] [address] UAon 01-10-2023 Color (U) Yellow Normal [facility] ([place] Comment on above: Performed By: #### A DIFF, GFR, MDW, CMP, ANEU, CBC, LIP #### [address] [address] Glucose (U) [Mass/Vol] 500 mg/dL Abnormal Negative [facility] ([place]) Comment on above: Performed By: #### A DIFF, GFR, MDW, CMP, ANEU, CBC, LIP #### [place] [phone] Ketones Ql (U) >=160 Abnormal Negative [facility] ([place] Comment on above: Performed By: #### A DIFF, GFR, MDW, CMP, ANEU, CBC, LIP #### [address] [address] UA Appear Slightly Cloudy Abnormal Clear [facility] ([place]) Comment on above: Performed By: #### A DIFF, GFR, MDW, CMP, ANEU, CBC, LIP #### [address] [address] UA Blood Negative Normal Negative [facility] ([place] Comment on above: Performed By: #### A DIFF, GFR, MDW, CMP, ANEU, CBC, LIP #### [address] [address] UA Leuk Est Negative Normal Negative [facility] ([place] Comment on above: Performed By: #### A DIFF, GFR, MDW, CMP, ANEU, CBC, LIP #### [address] [address] UA Nitrite Negative Normal Negative [facility] ([place] Comment on above: Performed By: #### A DIFF, GFR, MDW, CMP, ANEU, CBC, LIP #### [address] [address] UA pH 8.5 Abnormal 5.0 - 8.0 [facility] ([place]) Comment on above: Performed By: #### A DIFF, GFR, MDW, CMP, ANEU, CBC, LIP #### [address] [address] UA Protein 100 mg/dL Abnormal Negative [facility] ([place] Comment on above: Performed By: #### A DIFF, GFR, MDW, CMP, ANEU, CBC, LIP #### [address] [address] UA Spec Grav 1.020 Normal 1.015-1.025 [facility] ([place]) Comment on above: Performed By: #### A DIFF, GFR, MDW, CMP, ANEU, CBC, LIP #### [place] [address] UA Specimen Type Clean Catch Normal [facility] ([place] Comment on above: Performed By: #### A DIFF, GFR, MDW, CMP, ANEU, CBC, LIP #### [address] [address] UA Urobilinogen 0.2 E.U./dL Normal 0.2-1.0 [facility] ([place]) Comment on above: Performed By: #### A DIFF, GFR, MDW, CMP, ANEU, CBC, LIP #### [place] [address] Urobilinogen (U) [Mass/Vol] Negative Normal Negative [facility] ([place] Comment on above: Performed By: #### A DIFF, GFR, MDW, CMP, ANEU, CBC, LIP #### [place] [address] Absolute lymphocyte countOrd ered By: Carlos Calvo on 01-09-2023 Lymphocytes Auto (Unsp spec) [#/Vol] 2.47 10*3/uL 0.83-4.51 [facility] Basophil percentageOrdered B y: Carlos Calvo on 01-09-2023 Basophil percentage 0 SEEN /hpf 0-5 [facility] Basophil percentage 247 mg/dL 74-106 [facility] Basophil percentage 8.7 g/dL 6.4-8.2 [facility] Basophil percentage 0.60 mg/dL 0.20-1.00 [facility] Basophil percentage 134 mmol/L 136-145 [facility] Basophil percentage 4.0 mmol/L 3.5-5.1 [facility] Basophil percentage 101 mmol/L 98-107 [facility] Basophils (Bld) [#/Vol] 10.7 10*3/uL 4.4-11.0 [facility] Basophils (Bld) [#/Vol] 7.6 10*3/uL 2.0-7.7 [facility] Basophils/100 WBC (Bld) 0.5 % 0-[address] [facility] Basophils/100 WBC (Bld) 70.5 % 47-70 [facility] Basophils/100 WBC (Bld) 0.2 % 0-5 [facility] Bilirubin [Mass/Vol] 0.60 mg/dL 0.20-1.00 [facility] Comment on above: For patients on eltr ombopag therapy, use of Dimension [place] TBIL is not recommended. Chloride [Moles/Vol] 101 mmol/L 98-107 [facility] Eosinophils/100 WBC (Bld) 0.2 % 0-5 [facility] Glucose [Mass/Vol] 247 mg/dL 74-106 [facility] Comment on above: Glucose result great er than or equal to 200 mg/dLsuggests DIABETES MELLITUS per A.D.A. criteria. Neutrophils (Bld) [#/Vol] 7.6 10*3/uL 2.0-7.7 [facility] Neutrophils/100 WBC (Bld) 70.5 % 47-70 [facility] Potassium [Moles/Vol] 4.0 mmol/L 3.5-5.1 [facility] Comment on above: Slight Hemolysis, Re sult may be falsely increased. Protein [Mass/Vol] 8.7 g/dL 6.4-8.2 [facility] Sodium [Moles/Vol] 134 mmol/L 136-145 [facility] WBC (Bld) [#/Vol] 10.7 10*3/uL 4.4-11.0 [facility] Bilirubin Test strip Ql (U)O rdered By: Carlos Calvo on 01-09-2023 Bilirubin Ql (U) Negative Negative [facility] Blood erythrocytes count (nu mber/volume)Ordered By: Carlos Calvo on 01-09-2023 RBC (Bld) [#/Vol] 5.01 10*6/uL 4.2-5.4 [facility] Blood hemoglobin measurement (mass/volume)Ordered By: Carlos Calvo on 01-09-2023 Hemoglobin (Bld) [Mass/Vol] 13.0 g/dL 12.0-15.0 [facility] Blood lymphocytes/100 leukoc ytesOrdered By: Carlos Calvo on 01-09-2023 Lymphocytes/100 WBC (Bld) 23.0 % 19-41 [facility] Blood monocytes/100 leukocyt esOrdered By: Carlos Calvo on 01-09-2023 Monocytes/100 WBC (Bld) 4.9 % 0-[address] [facility] Blood platelet mean volumeOr dered By: Carlos Calvo on 01-09-2023 Platelet mean volume (Bld) [Entitic vol] 9.5 fL 6.2-12.0 [facility] Determination of erythrocyte mean corpuscular volume (MCV)Ordered By: Carlos Calvo on 01-09-2023 MCV (RBC) [Entitic vol] 79.8 fL 81-[address] [facility] Glucose Glucometer (BldC) [M ass/Vol]Ordered By: Deann Guerrero on 01-09-2023 Glucose [Mass/Vol] 254 mg/dL 74-106 [facility] Comment on above: MANAGEMENT OF PATIEN T CARE PER NURSING PROTOCOL Hematocrit Auto (Bld) [Volum e fraction]Ordered By: Carlos Calvo on 01-09-2023 Hematocrit (Bld) [Volume fraction] 40.0 % 37-47 [facility] Ketones Test strip Ql (U)Ord ered By: Carlos Calvo on 01-09-2023 Ketones Ql (U) 50 mg/dl Negative [facility] Laboratory - Chemistry and C hemistry - challengeOrdered By: Carlos Calvo on 01-09-2023 HCG ( test) Ql (U) Negative [facility] Comment on above: Very dilute urine sp ecimens, as indicated by a low specificgravity, may not contain retail field representative levels of hCG. If is still suspected, a first morning urinespecimen should be collected 48 hours later and tested. ALP [Catalytic activity/Vol] 85 U/L 45-117 [facility] ALT [Catalytic activity/Vol] 20 U/L 13-56 [facility] CO2 [Moles/Vol] 21.0 mmol/L 21.0-32.0 [facility] Globulin (S) [Mass/Vol] 5.2 g/dL 2.2-4.[address] [facility] Lipase [Catalytic activity/Vol] 38 U/L 13-75 [facility] Comment on above: Please note:LIPASE r evised reference range effective 22. New Lipase methodology. Expected to produce lower values than the previous assay method. NEW Reference Range: 13 - 75 U/L Urea nitrogen/Creatinine [Mass ratio] 7.9 mg/mg 10-20 [facility] Laboratory - Hematology and Cell countsOrdered By: Carlos Calvo on 01-09-2023 Erythrocyte distribution width (RBC) [Entitic vol] 38.3 fL 35.1-43.9 [facility] Erythrocyte distribution width (RBC) [Ratio] 13.4 % 11.6-14.6 [facility] Immature granulocytes/100 WBC (Bld) 0.900 % 0.0-0.9 [facility] Comment on above: IG% - Immature Granu locytes (promyelocytes, myelocytes and metamyelocytes) > 1% indicates that a LEFT SHIFT is Present. MCH (RBC) [Entitic mass] 25.9 pg 27.0-32.0 [facility] Nucleated RBC/100 WBC (Bld) [Ratio] 0 % 0-5 [facility] MCHC Auto (RBC) [Mass/Vol]Or dered By: Carlos Calvo on 01-09-2023 MCHC (RBC) [Mass/Vol] 32.5 g/dL 32-36 [facility] Mucus LM Ql (Urine sed)Order ed By: Carlos Calvo on 01-09-2023 Mucus Ql (Urine sed) 0 SEEN /hpf [facility] Nitrite Test strip Ql (U)Ord ered By: Carlos Calvo on 01-09-2023 Nitrite Ql (U) Negative Negative [facility] No Panel InformationOrdered By: Carlos Calvo on 01-09-2023 Negative [facility] Estimated Creatinine Clearance Calc 67.55 ml/min [facility] Estimated GFR (MDRD) Amer 72 mL/min >60 [facility] Comment on above: GFR Calc Estimated GFR (MDRD) Non-Af Amer 59 mL/min >60 [facility] Comment on above: Non- GFR Calc 25.9 pg 27.0-32.0 [facility] 13.4 % 11.6-14.6 [facility] 38.3 fl 35.1-43.9 [facility] 0.900 % 0.0-0.9 [facility] 0 % 0-5 [facility] 59 mL/min >60 [facility] 72 mL/min >60 [facility] 67.55 ml/min [facility] 7.9 RATIO 10-20 [facility] 5.2 g/dL 2.2-4.2 [facility] 38 U/L 13-75 [facility] 85 U/L 45-117 [facility] 20 U/L 13-56 [facility] 21.0 mmol/L 21.0-32.0 [facility] Platelets bldOrdered By: Analia Calvo on 01-09-2023 Platelets (Bld) [#/Vol] 397 10*3/uL 150-450 [facility] Protein Test strip Ql (U)Ord ered By: Carlos Calvo on 01-09-2023 Protein Ql (U) 15 mg/dl Negative [facility] Serum or plasma albumin hussein urement (mass/volume)Ordered By: Carlos Calvo on 01-09-2023 Albumin [Mass/Vol] 3.5 g/dL 3.2-5.0 [facility] Serum or plasma albumin/glob ulin mass ratioOrdered By: Carlos Calvo on 01-09-2023 Albumin/Globulin [Mass ratio] 0.7 {ratio} 0.9-2.4 [facility] Serum or plasma calcium hussein urement (mass/volume)Ordered By: Carlos Calvo on 01-09-2023 Calcium [Mass/Vol] 9.5 mg/dL 8.5-10.1 [facility] Serum or plasma creatinine m easurement (mass/volume)Ordered By: Carlos Calvo on 01-09-2023 Creatinine [Mass/Vol] 1.14 mg/dL 0.55-1.02 [facility] Comment on above: The validity of the calculated GFR & GFRAA in patients over 70 years has not been determined. Clinical correlation is essential. Serum or plasma urea nitroge n measurement (mass/volume)Ordered By: Carlos Calvo on 01-09-2023 Urea nitrogen [Mass/Vol] 9 mg/dL 7-18 [facility] Squamous epithelial cells de tection in urine sediment by light microscopyOrdered By: Carlos Calvo on 01-09-2023 Epithelial cells.squamous LM Ql (Urine sed) 5-10 SEEN /hpf 5-10 [facility] Thin prep Papanicolaou smear with manual screeningOrdered By: Carlos Calvo on 01-09-2023 Thin prep Papanicolaou smear with manual screening 19 U/L 15-37 [facility] Comment on above: Slight Hemolysis, Re sult may be falsely increased. Thin prep Papanicolaou smear with manual screening 12 5-15 [facility] Urine blood detectionOrdered By: Carlos Calvo on 01-09-2023 RBC Ql (U) 10 /ul Negative [facility] RBC Ql (U) 0 SEEN /hpf 0-5 [facility] Urine clarityOrdered By: Analia Calvo on 01-09-2023 Clarity (U) Clear Clear [facility] Urine color determinationOrd ered By: Carlos Calvo on 01-09-2023 Color (U) Yellow Yellow [facility] Urine glucose detectionOrder ed By: Carlos Calvo on 01-09-2023 Glucose Ql (U) 1000 mg/dl Normal [facility] Urine leukocyte esterase det ection by dipstickOrdered By: Carlos Calvo on 01-09-2023 Leukocyte esterase Test strip Ql (U) 25 /ul Negative [facility] Urine pHOrdered By: Carlos mclain on 01-09-2023 pH (U) 8.0 [pH] 5.0 - 8.0 [facility] Urine sediment bacteria coun t by microscopy (number/high power field)Ordered By: Carlos Calvo on 01-09-2023 Bacteria LM.HPF (Urine sed) [#/Area] 0 /[HPF] None Seen [facility] Urine specific gravity measu rementOrdered By: Carlos Calvo on 01-09-2023 Specific gravity (U) [Rel density] 1.015 1.002-1.030 [facility] Urobilinogen Auto test strip Ql (U)Ordered By: Carlos Calvo on 01-09-2023 Urobilinogen Ql (U) Normal mg/dl Normal [facility] Absolute lymphocyte countOrd ered By: Poli Barfield on 01-07-2023 Lymphocytes Auto (Unsp spec) [#/Vol] 3.48 10*3/uL 0.83-4.51 [facility] Basophil percentageOrdered B y: Poli Barfield on 01-07-2023 Basophil percentage 202 mg/dL 74-106 [facility] Basophil percentage 135 mmol/L 136-145 [facility] Basophil percentage 3.8 mmol/L 3.5-5.1 [facility] Basophil percentage 102 mmol/L 98-107 [facility] Basophils (Bld) [#/Vol] 9.0 10*3/uL 4.4-11.0 [facility] Basophils (Bld) [#/Vol] 4.8 10*3/uL 2.0-7.7 [facility] Basophils/100 WBC (Bld) 0.4 % 0-[address] [facility] Basophils/100 WBC (Bld) 53.2 % 47-[address] [facility] Basophils/100 WBC (Bld) 1.0 % 0-[address] [facility] Chloride [Moles/Vol] 102 mmol/L 98-107 [facility] Eosinophils/100 WBC (Bld) 1.0 % 0-5 [facility] Glucose [Mass/Vol] 202 mg/dL 74-106 [facility] Comment on above: Glucose result great er than or equal to 200 mg/dLsuggests DIABETES MELLITUS per A.D.A. criteria. Neutrophils (Bld) [#/Vol] 4.8 10*3/uL 2.0-7.7 [facility] Neutrophils/100 WBC (Bld) 53.2 % 47-70 [facility] Potassium [Moles/Vol] 3.8 mmol/L 3.5-5.1 [facility] Sodium [Moles/Vol] 135 mmol/L 136-145 [facility] WBC (Bld) [#/Vol] 9.0 10*3/uL 4.4-11.0 [facility] Blood erythrocytes count (nu mber/volume)Ordered By: Poli Barfield on 01-07-2023 RBC (Bld) [#/Vol] 4.92 10*6/uL 4.2-5.4 [facility] Blood hemoglobin measurement (mass/volume)Ordered By: Poli Barfield on 01-07-2023 Hemoglobin (Bld) [Mass/Vol] 12.7 g/dL 12.0-15.0 [facility] Blood lymphocytes/100 leukoc ytesOrdered By: Poli Barfield on 01-07-2023 Lymphocytes/100 WBC (Bld) 38.5 % 19-41 [facility] Blood monocytes/100 leukocyt esOrdered By: Poli Barfield on 01-07-2023 Monocytes/100 WBC (Bld) 5.9 % 0-[address] [facility] Blood platelet mean volumeOr dered By: Poli Barfield on 01-07-2023 Platelet mean volume (Bld) [Entitic vol] 9.1 fL 6.2-12.0 [facility] Determination of erythrocyte mean corpuscular volume (MCV)Ordered By: Poli Barfield on 01-07-2023 MCV (RBC) [Entitic vol] 79.7 fL 81-[address] [facility] Glucose Glucometer (BldC) [M ass/Vol]Ordered By: Poli Barfield on 01-07-2023 Glucose [Mass/Vol] 206 mg/dL 74-106 [facility] Comment on above: MANAGEMENT OF PATIEN T CARE PER NURSING PROTOCOL Hematocrit Auto (Bld) [Volum e fraction]Ordered By: Poli Barfield on 01-07-2023 Hematocrit (Bld) [Volume fraction] 39.2 % 37-47 [facility] Laboratory - Chemistry and C hemistry - challengeOrdered By: Poli Barfield on 01-07-2023 HCG ( test) Ql (U) Negative [facility] Comment on above: Very dilute urine sp ecimens, as indicated by a low specificgravity, may not contain retail field representative levels of hCG. If is still suspected, a first morning urinespecimen should be collected 48 hours later and tested. CO2 [Moles/Vol] 24.0 mmol/L 21.0-32.0 [facility] Urea nitrogen/Creatinine [Mass ratio] 8.9 mg/mg 10-20 [facility] Laboratory - Drug toxicology Ordered By: Poli Barfield on 01-07-2023 Amphetamines Ql (U) Negative <1000 ng/mL [facility] Benzodiazepines Ql (U) Negative < 200 ng/mL [facility] Cannabinoids Screen Ql (U) Positive < 50 ng/mL [facility] Cocaine Ql (U) Negative < 300 ng/mL [facility] Opiates Ql (U) Negative < 300 ng/mL [facility] Laboratory - Hematology and Cell countsOrdered By: Poli Barfield on 01-07-2023 Erythrocyte distribution width (RBC) [Entitic vol] 38.9 fL 35.1-43.9 [facility] Erythrocyte distribution width (RBC) [Ratio] 13.5 % 11.6-14.6 [facility] Immature granulocytes/100 WBC (Bld) 1.000 % 0.0-0.9 [facility] Comment on above: IG% - Immature Granu locytes (promyelocytes, myelocytes and metamyelocytes) > 1% indicates that a LEFT SHIFT is Present. MCH (RBC) [Entitic mass] 25.8 pg 27.0-32.0 [facility] Nucleated RBC/100 WBC (Bld) [Ratio] 0 % 0-5 [facility] MCHC Auto (RBC) [Mass/Vol]Or dered By: Poli Barfield on 01-07-2023 MCHC (RBC) [Mass/Vol] 32.4 g/dL 32-36 [facility] No Panel InformationOrdered By: Poli Barfield on 01-07-2023 MDMA (Ecstasy) Screen Positive < 500 ng/mL [facility] Urine Barbiturates Screen Negative < 200 ng/mL [facility] Urine Drug Screen Comment [facility] Comment on above: CONFIRMATORY TESTING FOR ALL [...] Methadone Screen Negative < 300 ng/mL [facility] Negative < 300 ng/mL [facility] Positive < 50 ng/mL [facility] Estimated Creatinine Clearance Calc 68.76 ml/min [facility] Estimated GFR (MDRD) Amer 73 mL/min >60 [facility] Comment on above: GFR Calc Estimated GFR (MDRD) Non-Af Amer 60 mL/min >60 [facility] Comment on above: Non- GFR Calc 25.8 pg 27.0-32.0 [facility] 13.5 % 11.6-14.6 [facility] 38.9 fl 35.1-43.9 [facility] 1.000 % 0.0-0.9 [facility] 0 % 0-5 [facility] 60 mL/min >60 [facility] 73 mL/min >60 [facility] 68.76 ml/min [facility] 8.9 RATIO 10-20 [facility] 24.0 mmol/L 21.0-32.0 [facility] Platelets bldOrdered By: Devon Barfield on 01-07-2023 Platelets (Bld) [#/Vol] 380 10*3/uL 150-450 [facility] Serum or plasma calcium hussein urement (mass/volume)Ordered By: Poli Barfield on 01-07-2023 Calcium [Mass/Vol] 9.0 mg/dL 8.5-10.1 [facility] Serum or plasma creatinine m easurement (mass/volume)Ordered By: Poli Barfield on 01-07-2023 Creatinine [Mass/Vol] 1.12 mg/dL 0.55-1.02 [facility] Comment on above: The validity of the calculated GFR & GFRAA in patients over 70 years has not been determined. Clinical correlation is essential. Serum or plasma urea nitroge n measurement (mass/volume)Ordered By: Poli Barfield on 01-07-2023 Urea nitrogen [Mass/Vol] 10 mg/dL 7-18 [facility] Thin prep Papanicolaou smear with manual screeningOrdered By: Poli Barfield on 01-07-2023 Thin prep Papanicolaou smear with manual screening 9 5-15 [facility] Urine phencyclidine (PCP) de tectionOrdered By: Poli Barfield on 01-07-2023 Phencyclidine Ql (U) Negative < 25 ng/mL [facility] Basophil percentageOrdered B y: Amykeiko Solorzano on 11-25-2022 Basophil percentage 493 mg/dL 74-106 [facility] Basophil percentage 8.0 g/dL 6.4-8.2 [facility] Basophil percentage 0.20 mg/dL 0.20-1.00 [facility] Basophil percentage 130 mmol/L 136-145 [facility] Basophil percentage 4.3 mmol/L 3.5-5.1 [facility] Basophil percentage 99 mmol/L 98-107 [facility] Basophils (Bld) [#/Vol] 8.2 10*3/uL 4.4-11.0 [facility] Bilirubin [Mass/Vol] 0.20 mg/dL 0.20-1.00 [facility] Comment on above: For patients on eltr ombopag therapy, use of Dimension [place] TBIL is not recommended. Chloride [Moles/Vol] 99 mmol/L 98-107 [facility] Glucose [Mass/Vol] 493 mg/dL 74-106 [facility] Comment on above: Critical Result(s) C alled at: 11:44:33 11/25/2022 by: NICOLE PATE TO GHISLAINE MCQUEEN. Results read back by same.Glucose result greater than or equal to 200 mg/dLsuggests DIABETES MELLITUS per A.D.A. criteria. Potassium [Moles/Vol] 4.3 mmol/L 3.5-5.1 [facility] Protein [Mass/Vol] 8.0 g/dL 6.4-8.2 [facility] Sodium [Moles/Vol] 130 mmol/L 136-145 [facility] WBC (Bld) [#/Vol] 8.2 10*3/uL 4.4-11.0 [facility] Blood erythrocytes count (nu mber/volume)Ordered By: Amy Solorzano on 11-25-2022 RBC (Bld) [#/Vol] 4.74 10*6/uL 4.2-5.4 [facility] Blood hemoglobin measurement (mass/volume)Ordered By: Amy Solorzano on 11-25-2022 Hemoglobin (Bld) [Mass/Vol] 12.5 g/dL 12.0-15.0 [facility] Blood platelet mean volumeOr dered By: Amy Solorzano on 11-25-2022 Platelet mean volume (Bld) [Entitic vol] 9.5 fL 6.2-12.0 [facility] Determination of erythrocyte mean corpuscular volume (MCV)Ordered By: Amy Solorzano on 11-25-2022 MCV (RBC) [Entitic vol] 80.2 fL 81-[address] [facility] Hematocrit Auto (Bld) [Volum e fraction]Ordered By: Amy Solorzano on 11-25-2022 Hematocrit (Bld) [Volume fraction] 38.0 % 37-47 [facility] Laboratory - Chemistry and C hemistry - challengeOrdered By: Amy Solorzano on 11-25-2022 ALP [Catalytic activity/Vol] 110 U/L 45-117 [facility] ALT [Catalytic activity/Vol] 26 U/L 13-56 [facility] CO2 [Moles/Vol] 19.0 mmol/L 21.0-32.0 [facility] Globulin (S) [Mass/Vol] 5.0 g/dL 2.2-4.[address] [facility] Urea nitrogen/Creatinine [Mass ratio] 11.3 mg/mg 10-20 [facility] Laboratory - Hematology and Cell countsOrdered By: Amy Solorzano on 11-25-2022 Erythrocyte distribution width (RBC) [Entitic vol] 40.1 fL 35.1-43.9 [facility] Erythrocyte distribution width (RBC) [Ratio] 13.9 % 11.6-14.6 [facility] MCH (RBC) [Entitic mass] 26.4 pg 27.0-32.0 [facility] MCHC Auto (RBC) [Mass/Vol]Or dered By: Amy Solorzano on 11-25-2022 MCHC (RBC) [Mass/Vol] 32.9 g/dL 32-36 [facility] No Panel InformationOrdered By: Amy Solorzano on 11-25-2022 Estimated GFR (MDRD) Amer 71 mL/min >60 [facility] Comment on above: GFR Calc Estimated GFR (MDRD) Non-Af Amer 59 mL/min >60 [facility] Comment on above: Non- GFR Calc 26.4 pg 27.0-32.0 [facility] 13.9 % 11.6-14.6 [facility] 40.1 fl 35.1-43.9 [facility] 59 mL/min >60 [facility] 71 mL/min >60 [facility] 11.3 RATIO 10-20 [facility] 5.0 g/dL 2.2-4.2 [facility] 110 U/L 45-117 [facility] 26 U/L 13-56 [facility] 19.0 mmol/L 21.0-32.0 [facility] Platelets bldOrdered By: Glendy Solorzano on 11-25-2022 Platelets (Bld) [#/Vol] 375 10*3/uL 150-450 [facility] Serum or plasma albumin hussein urement (mass/volume)Ordered By: Amy Solorzano on 11-25-2022 Albumin [Mass/Vol] 3.0 g/dL 3.2-5.0 [facility] Serum or plasma albumin/glob ulin mass ratioOrdered By: Amy Solorzano on 11-25-2022 Albumin/Globulin [Mass ratio] 0.6 {ratio} 0.9-2.4 [facility] Serum or plasma calcium hussein urement (mass/volume)Ordered By: Amy Solorzano on 11-25-2022 Calcium [Mass/Vol] 8.2 mg/dL 8.5-10.1 [facility] Serum or plasma creatinine m easurement (mass/volume)Ordered By: Amy Solorzano on 11-25-2022 Creatinine [Mass/Vol] 1.15 mg/dL 0.55-1.02 [facility] Comment on above: The validity of the calculated GFR & GFRAA in patients over 70 years has not been determined. Clinical correlation is essential. Serum or plasma urea nitroge n measurement (mass/volume)Ordered By: Amy Solorzano on 11-25-2022 Urea nitrogen [Mass/Vol] 13 mg/dL 7-18 [facility] Thin prep Papanicolaou smear with manual screeningOrdered By: Amy Solorzano on 11-25-2022 Thin prep Papanicolaou smear with manual screening 15 U/L 15-37 [facility] Thin prep Papanicolaou smear with manual screening 12 5-15 [facility] Thin prep Papanicolaou smear with manual screening 6.1 mg/L NO RANGE EST. [facility] Whole blood hemoglobin A1c/t otal hemoglobin ratio (mass fraction)Ordered By: Amy Solorzano on 11-25-2022 HbA1c (Bld) [Mass fraction] 12.1 % 3.8-5.6 [facility] Comment on above: Normal < 5.7 % Predi abetic 5.7 - 6.4 % Diabetic >or= 6.5 % Please note range changes. Absolute lymphocyte countOrd ered By: Dr. Villatoro on 08-15-2022 Lymphocytes Auto (Unsp spec) [#/Vol] 2.49 10*3/uL 0.83-4.51 [facility] Basophil percentageOrdered B y: Dr. Villatoro on 08-15-2022 Basophils/100 WBC (Bld) 0.4 % 0-1 [facility] Chloride [Moles/Vol] 104 mmol/L 98-107 [facility] Eosinophils/100 WBC (Bld) 0.9 % 0-5 [facility] Glucose [Mass/Vol] 215 mg/dL 74-106 [facility] Comment on above: Glucose result great er than or equal to 200 mg/dLsuggests DIABETES MELLITUS per A.D.A. criteria. Neutrophils (Bld) [#/Vol] 5.7 10*3/uL 2.0-7.7 [facility] Neutrophils/100 WBC (Bld) 62.3 % 47-70 [facility] Potassium [Moles/Vol] 4.0 mmol/L 3.5-5.1 [facility] Sodium [Moles/Vol] 137 mmol/L 136-145 [facility] WBC (Bld) [#/Vol] 9.2 10*3/uL 4.4-11.0 [facility] Blood erythrocytes count (nu mber/volume)Ordered By: Dr. Villatoro on 08-15-2022 RBC (Bld) [#/Vol] 3.60 10*6/uL 4.2-5.4 [facility] Blood hemoglobin measurement (mass/volume)Ordered By: Dr. Villatoro on 08-15-2022 Hemoglobin (Bld) [Mass/Vol] 9.2 g/dL 12.0-15.0 [facility] Blood lymphocytes/100 leukoc ytesOrdered By: Dr. Villatoro on 08-15-2022 Lymphocytes/100 WBC (Bld) 27.1 % 19-41 [facility] Blood monocytes/100 leukocyt esOrdered By: Dr. Villatoro on 08-15-2022 Monocytes/100 WBC (Bld) 8.2 % 0-[address] [facility] Blood platelet mean volumeOr dered By: Dr. Villatoro on 08-15-2022 Platelet mean volume (Bld) [Entitic vol] 9.0 fL 6.2-12.0 [facility] Determination of erythrocyte mean corpuscular volume (MCV)Ordered By: Dr. Villatoro on 08-15-2022 MCV (RBC) [Entitic vol] 81.4 fL 81-[address] [facility] Glucose Glucometer (BldC) [M ass/Vol]Ordered By: Dr. Villatoro on 08-15-2022 Glucose [Mass/Vol] 290 mg/dL 74-106 [facility] Comment on above: MANAGEMENT OF PATIEN T CARE PER NURSING PROTOCOL Hematocrit Auto (Bld) [Volum e fraction]Ordered By: Dr. Villatoro on 08-15-2022 Hematocrit (Bld) [Volume fraction] 29.3 % 37-47 [facility] Laboratory - Chemistry and C hemistry - challengeOrdered By: Dr. Villatoro on 08-15-2022 CO2 [Moles/Vol] 24.0 mmol/L 21.0-32.0 [facility] Urea nitrogen/Creatinine [Mass ratio] 7.1 mg/mg 10-20 [facility] Laboratory - Hematology and Cell countsOrdered By: Dr. Villatoro on 08-15-2022 Erythrocyte distribution width (RBC) [Entitic vol] 38.4 fL 35.1-43.9 [facility] Erythrocyte distribution width (RBC) [Ratio] 12.9 % 11.6-14.6 [facility] Immature granulocytes/100 WBC (Bld) 1.100 % 0.0-0.9 [facility] Comment on above: IG% - Immature Granu locytes (promyelocytes, myelocytes and metamyelocytes) > 1% indicates that a LEFT SHIFT is Present. MCH (RBC) [Entitic mass] 25.6 pg 27.0-32.0 [facility] Nucleated RBC/100 WBC (Bld) [Ratio] 0 % 0-5 [facility] MCHC Auto (RBC) [Mass/Vol]Or dered By: Dr. Villatoro on 08-15-2022 MCHC (RBC) [Mass/Vol] 31.4 g/dL 32-36 [facility] No Panel InformationOrdered By: Dr. Villatoro on 08-15-2022 Estimated Creatinine Clearance Calc 110.01 ml/min [facility] Estimated GFR (MDRD) Amer 125 mL/min >60 [facility] Comment on above: GFR Calc Estimated GFR (MDRD) Non-Af Amer 104 mL/min >60 [facility] Comment on above: Non- GFR Calc Platelets bldOrdered By: Dr. Villatoro on 08-15-2022 Platelets (Bld) [#/Vol] 458 10*3/uL 150-450 [facility] Serum or plasma C reactive p rotein measurement (mass/volume)Ordered By: Dr. Villatoro on 08-15-2022 CRP [Mass/Vol] 119.00 mg/L 0.0-3.0 [facility] Comment on above: C-Reactive Protein ( CRP) provides useful information for thediagnosis, therapy and monitoring of inflammatory processesand associated diseases. For the evaluation of Relative Riskfor Cardiovascular Disease, a High Sensitivity CRP (HSCRP)should be ordered. Serum or plasma calcium hussein urement (mass/volume)Ordered By: Dr. Villatoro on 08-15-2022 Calcium [Mass/Vol] 8.4 mg/dL 8.5-10.1 [facility] Serum or plasma creatinine m easurement (mass/volume)Ordered By: Dr. Villatoro on 08-15-2022 Creatinine [Mass/Vol] 0.70 mg/dL 0.55-1.02 [facility] Comment on above: The validity of the calculated GFR & GFRAA in patients over 70 years has not been determined. Clinical correlation is essential. Serum or plasma urea nitroge n measurement (mass/volume)Ordered By: Dr. Villatoro on 08-15-2022 Urea nitrogen [Mass/Vol] 5 mg/dL 7-18 [facility] Thin prep Papanicolaou smear with manual screeningOrdered By: Dr. Villatoro on 08-15-2022 Thin prep Papanicolaou smear with manual screening 9 5-15 [facility] Culture, urineOrdered By: Dr Marine Christiansen on 08-14-2022 Bacteria identified Cx Nom (U) Escherichia coli [facility] Basophil percentageOrdered B y: Dr. Urbina on 08-13-2022 Bilirubin [Mass/Vol] 0.50 mg/dL 0.20-1.00 [facility] Comment on above: For patients on eltr ombopag therapy, use of Dimension [place] TBIL is not recommended. Protein [Mass/Vol] 8.1 g/dL 6.4-8.2 [facility] Erythrocyte sedimentation ra teOrdered By: Dr. Villatoro on 08-13-2022 ESR (Bld) [Velocity] 43 mm/h 0-30 [facility] Laboratory - Chemistry and C hemistry - challengeOrdered By: Dr. Urbina on 08-13-2022 ALP [Catalytic activity/Vol] 99 U/L 45-117 [facility] ALT [Catalytic activity/Vol] 11 U/L 13-56 [facility] Globulin (S) [Mass/Vol] 5.6 g/dL 2.2-4.[address] [facility] Magnesium [Mass/Vol] 2.2 mg/dL 1.6-2.6 [facility] Serum or plasma albumin hussein urement (mass/volume)Ordered By: Dr. Urbina on 08-13-2022 Albumin [Mass/Vol] 2.5 g/dL 3.2-5.0 [facility] Serum or plasma albumin/glob ulin mass ratioOrdered By: Dr. Urbina on 08-13-2022 Albumin/Globulin [Mass ratio] 0.4 {ratio} 0.9-2.4 [facility] Thin prep Papanicolaou smear with manual screeningOrdered By: Dr. Urbina on 08-13-2022 Thin prep Papanicolaou smear with manual screening 8 U/L 15-37 [facility] Absolute lymphocyte countOrd ered By: Dr. Christiansen on 08-12-2022 Lymphocytes Auto (Unsp spec) [#/Vol] 3.81 10*3/uL 0.83-4.51 [facility] Basophil percentageOrdered B y: Dr. Christiansen on 08-12-2022 Basophil percentage 10-25 SEEN /hpf 0-5 [facility] Basophils/100 WBC (Bld) 0.3 % 0-[address] [facility] Bilirubin [Mass/Vol] 0.50 mg/dL 0.20-1.00 [facility] Comment on above: For patients on eltr ombopag therapy, use of Dimension [place] TBIL is not recommended. Chloride [Moles/Vol] 95 mmol/L 98-107 [facility] Eosinophils/100 WBC (Bld) 0.1 % 0-5 [facility] Glucose [Mass/Vol] 230 mg/dL 74-106 [facility] Comment on above: Glucose result great er than or equal to 200 mg/dLsuggests DIABETES MELLITUS per A.D.A. criteria. Neutrophils (Bld) [#/Vol] 13.2 10*3/uL 2.0-7.7 [facility] Neutrophils/100 WBC (Bld) 69.8 % 47-70 [facility] Potassium [Moles/Vol] 3.9 mmol/L 3.5-5.1 [facility] Comment on above: Slight Hemolysis, Re sult may be falsely increased. Protein [Mass/Vol] 9.2 g/dL 6.4-8.2 [facility] Sodium [Moles/Vol] 130 mmol/L 136-145 [facility] WBC (Bld) [#/Vol] 18.9 10*3/uL 4.4-11.0 [facility] Bilirubin Test strip Ql (U)O rdered By: Dr. Christiansen on 08-12-2022 Bilirubin Ql (U) Negative Negative [facility] Blood erythrocytes count (nu mber/volume)Ordered By: Dr. Christiansen on 08-12-2022 RBC (Bld) [#/Vol] 4.35 10*6/uL 4.2-5.4 [facility] Blood hemoglobin measurement (mass/volume)Ordered By: Dr. Christiansen on 08-12-2022 Hemoglobin (Bld) [Mass/Vol] 11.4 g/dL 12.0-15.0 [facility] Blood lymphocytes/100 leukoc ytesOrdered By: Dr. Christiansen on 08-12-2022 Lymphocytes/100 WBC (Bld) 20.1 % 19-41 [facility] Blood manual differential co mment interpretation (narrative result)Ordered By: Dr. Christiansen on 08-12-2022 Manual differential comment Franky (Bld) [Interp] SCANNED [facility] Comment on above: MONOCYTOSIS NOTED Blood monocytes/100 leukocyt esOrdered By: Dr. Christiansen on 08-12-2022 Monocytes/100 WBC (Bld) 8.7 % 0-[address] [facility] Blood platelet mean volumeOr dered By: Dr. Christiansen on 08-12-2022 Platelet mean volume (Bld) [Entitic vol] 9.3 fL 6.2-12.0 [facility] Determination of erythrocyte mean corpuscular volume (MCV)Ordered By: Dr. Christiansen on 08-12-2022 MCV (RBC) [Entitic vol] 78.2 fL 81-[address] [facility] Glucose Glucometer (BldC) [M ass/Vol]Ordered By: Dr. Urbina on 08-12-2022 Glucose [Mass/Vol] 212 mg/dL 74-106 [facility] Comment on above: MANAGEMENT OF PATIEN T CARE PER NURSING PROTOCOL Hematocrit Auto (Bld) [Volum e fraction]Ordered By: Dr. Christiansen on 08-12-2022 Hematocrit (Bld) [Volume fraction] 34.0 % 37-47 [facility] Ketones Test strip Ql (U)Ord ered By: Dr. Christiansen on 08-12-2022 Ketones Ql (U) 15 mg/dl Negative [facility] Laboratory - Chemistry and C hemistry - challengeOrdered By: Dr. Christiansen on 08-12-2022 ALP [Catalytic activity/Vol] 136 U/L 45-117 [facility] ALT [Catalytic activity/Vol] 13 U/L 13-56 [facility] CO2 [Moles/Vol] 23.0 mmol/L 21.0-32.0 [facility] Globulin (S) [Mass/Vol] 6.3 g/dL 2.2-4.[address] [facility] Magnesium [Mass/Vol] 1.6 mg/dL 1.6-2.6 [facility] Comment on above: Slight Hemolysis, Re sult may be falsely increased. Urea nitrogen/Creatinine [Mass ratio] 7.2 mg/mg 10-20 [facility] Laboratory - Hematology and Cell countsOrdered By: Dr. Christiansen on 08-12-2022 Erythrocyte distribution width (RBC) [Entitic vol] 36.9 fL 35.1-43.9 [facility] Erythrocyte distribution width (RBC) [Ratio] 12.9 % 11.6-14.6 [facility] Immature granulocytes/100 WBC (Bld) 1.000 % 0.0-0.9 [facility] Comment on above: IG% - Immature Granu locytes (promyelocytes, myelocytes and metamyelocytes) > 1% indicates that a LEFT SHIFT is Present. MCH (RBC) [Entitic mass] 26.2 pg 27.0-32.0 [facility] Nucleated RBC/100 WBC (Bld) [Ratio] 0 % 0-5 [facility] MCHC Auto (RBC) [Mass/Vol]Or dered By: Dr. Christiansen on 08-12-2022 MCHC (RBC) [Mass/Vol] 33.5 g/dL 32-36 [facility] Mucus LM Ql (Urine sed)Order ed By: Dr. Christiansen on 08-12-2022 Mucus Ql (Urine sed) 0 SEEN /hpf [facility] Nitrite Test strip Ql (U)Ord ered By: Dr. Christiansen on 08-12-2022 Nitrite Ql (U) Negative Negative [facility] No Panel InformationOrdered By: Dr. Christiansen on 08-12-2022 Estimated Creatinine Clearance Calc 69.38 ml/min [facility] Estimated GFR (MDRD) Amer 74 mL/min >60 [facility] Comment on above: GFR Calc Estimated GFR (MDRD) Non-Af Amer 61 mL/min >60 [facility] Comment on above: Non- GFR Calc Troponin I High Sensitivity 6 pg/mL 3.0-54.0 [facility] Comment on above: Please Note: New [place] t Units and Gender Specific Reference Ranges. For more information see Policy Stat Procedure [place] High Sensitivity Troponin (TNIH) and attachments. Platelets bldOrdered By: Dr. Christiansen on 08-12-2022 Platelets (Bld) [#/Vol] 453 10*3/uL 150-450 [facility] Protein Test strip Ql (U)Ord ered By: Dr. Christiansen on 08-12-2022 Protein Ql (U) 100 mg/dl Negative [facility] Review by pathologistOrdered By: Dr. Christiansen on 08-12-2022 Pathologist review Franky (Unsp spec) [Interp] Zahraa waite [facility] Pathologist review Franky (Unsp spec) [Interp] Reviewed [facility] Comment on above: Previous reported re sult: Zahraa waite Edited by: RGOOD on 08/14/22:0949Neutrophilic leukocytosis.Microcytic RBCs.Clinical correlation suggested.Franki Glez D.O. 08/14/22 AMENDED REPORT 08/14/22 [id number] PATH REV previously reported as: Zahraa waite Serum or plasma acetone hussein urement (mass/volume)Ordered By: Dr. Christiansen on 08-12-2022 Acetone [Mass/Vol] Negative NEG [facility] Serum or plasma albumin hussein urement (mass/volume)Ordered By: Dr. Christiansen on 08-12-2022 Albumin [Mass/Vol] 2.9 g/dL 3.2-5.0 [facility] Serum or plasma albumin/glob ulin mass ratioOrdered By: Dr. Christiansen on 08-12-2022 Albumin/Globulin [Mass ratio] 0.5 {ratio} 0.9-2.4 [facility] Serum or plasma calcium hussein urement (mass/volume)Ordered By: Dr. Christiansen on 08-12-2022 Calcium [Mass/Vol] 9.6 mg/dL 8.5-10.1 [facility] Serum or plasma creatinine m easurement (mass/volume)Ordered By: Dr. Christiansen on 08-12-2022 Creatinine [Mass/Vol] 1.11 mg/dL 0.55-1.02 [facility] Comment on above: The validity of the calculated GFR & GFRAA in patients over 70 years has not been determined. Clinical correlation is essential. Serum or plasma urea nitroge n measurement (mass/volume)Ordered By: Dr. Christiansen on 08-12-2022 Urea nitrogen [Mass/Vol] 8 mg/dL 7-18 [facility] Squamous epithelial cells de tection in urine sediment by light microscopyOrdered By: Dr. Christiansen on 08-12-2022 Epithelial cells.squamous LM Ql (Urine sed) 0-5 SEEN /hpf 5-10 [facility] Thin prep Papanicolaou smear with manual screeningOrdered By: Dr. Christiansen on 08-12-2022 Thin prep Papanicolaou smear with manual screening 20 U/L 15-37 [facility] Comment on above: Slight Hemolysis, Re sult may be falsely increased. Thin prep Papanicolaou smear with manual screening 12 5-15 [facility] Urine blood detectionOrdered By: Dr. Christiansen on 08-12-2022 RBC Ql (U) 150 /ul Negative [facility] RBC Ql (U) 0 SEEN /hpf 0-5 [facility] Urine clarityOrdered By: Dr. Christiansen on 08-12-2022 Clarity (U) Clear Clear [facility] Urine color determinationOrd ered By: Dr. Christiansen on 08-12-2022 Color (U) Yellow Yellow [facility] Urine glucose detectionOrder ed By: Dr. Christiansen on 08-12-2022 Glucose Ql (U) 50 mg/dl Normal [facility] Urine leukocyte esterase det ection by dipstickOrdered By: Dr. Christiansen on 08-12-2022 Leukocyte esterase Test strip Ql (U) 100 /ul Negative [facility] Urine pHOrdered By: Dr. Ethan arriola on 08-12-2022 pH (U) 6.0 [pH] 5.0 - 8.0 [facility] Urine sediment bacteria coun t by microscopy (number/high power field)Ordered By: Dr. Christiansen on 08-12-2022 Bacteria LM.HPF (Urine sed) [#/Area] 0 /[HPF] None Seen [facility] Urine specific gravity measu rementOrdered By: Dr. Christiansen on 08-12-2022 Specific gravity (U) [Rel density] 1.010 1.002-1.030 [facility] Urobilinogen Auto test strip Ql (U)Ordered By: Dr. Christiansen on 08-12-2022 Urobilinogen Ql (U) Normal mg/dl Normal [facility] Acid fast bacilli (AFB) cult ureOrdered By: Dr. Matias on 08-09-2022 Mycobacterium sp identified Org specific cx Nom (Unsp spec) [facility] Thin prep Papanicolaou smear with manual screeningOrdered By: Dr. Matias on 08-09-2022 Thin prep Papanicolaou smear with manual screening [facility] Absolute lymphocyte countOrd ered By: Dr. Rao on 06-29-2022 Lymphocytes Auto (Unsp spec) [#/Vol] 2.81 10*3/uL 0.83-4.51 [facility] Basophil percentageOrdered B y: Dr. Rao on 06-29-2022 Basophils/100 WBC (Bld) 0.7 % 0-1 [facility] Chloride [Moles/Vol] 105 mmol/L 98-107 [facility] Eosinophils/100 WBC (Bld) 1.3 % 0-5 [facility] Glucose [Mass/Vol] 192 mg/dL 74-106 [facility] Comment on above: Fasting Glucose resu lt greater than or equal to 126 mg/dL suggests DIABETES MELLITUS per A.D.A. criteria. Neutrophils (Bld) [#/Vol] 4.2 10*3/uL 2.0-7.7 [facility] Neutrophils/100 WBC (Bld) 51.1 % 47-70 [facility] Potassium [Moles/Vol] 3.9 mmol/L 3.5-5.1 [facility] Sodium [Moles/Vol] 136 mmol/L 136-145 [facility] WBC (Bld) [#/Vol] 8.2 10*3/uL 4.4-11.0 [facility] Blood erythrocytes count (nu mber/volume)Ordered By: Dr. Rao on 06-29-2022 RBC (Bld) [#/Vol] 4.46 10*6/uL 4.2-5.4 [facility] Blood hemoglobin measurement (mass/volume)Ordered By: Dr. Rao on 06-29-2022 Hemoglobin (Bld) [Mass/Vol] 11.7 g/dL 12.0-15.0 [facility] Blood lymphocytes/100 leukoc ytesOrdered By: Dr. Rao on 06-29-2022 Lymphocytes/100 WBC (Bld) 34.3 % 19-41 [facility] Blood monocytes/100 leukocyt esOrdered By: Dr. Rao on 06-29-2022 Monocytes/100 WBC (Bld) 9.9 % 0-[address] [facility] Blood platelet mean volumeOr dered By: Dr. Rao on 06-29-2022 Platelet mean volume (Bld) [Entitic vol] 9.1 fL 6.2-12.0 [facility] Determination of erythrocyte mean corpuscular volume (MCV)Ordered By: Dr. Rao on 06-29-2022 MCV (RBC) [Entitic vol] 81.8 fL 81-[address] [facility] Glucose Glucometer (dC) [M ass/Vol]Ordered By: Dr. Lr on 06-29-2022 Glucose [Mass/Vol] 251 mg/dL 74-106 [facility] Comment on above: MANAGEMENT OF PATIEN T CARE PER NURSING PROTOCOL Hematocrit Auto (Bld) [Volum e fraction]Ordered By: Dr. Rao on 06-29-2022 Hematocrit (Bld) [Volume fraction] 36.5 % 37-47 [facility] Laboratory - Chemistry and C hemistry - challengeOrdered By: Dr. Rao on 06-29-2022 CO2 [Moles/Vol] 24.0 mmol/L 21.0-32.0 [facility] Urea nitrogen/Creatinine [Mass ratio] 18.4 mg/mg 10-20 [facility] Laboratory - Hematology and Cell countsOrdered By: Dr. Rao on 06-29-2022 Erythrocyte distribution width (RBC) [Entitic vol] 41.2 fL 35.1-43.9 [facility] Erythrocyte distribution width (RBC) [Ratio] 14.1 % 11.6-14.6 [facility] Immature granulocytes/100 WBC (Bld) 2.700 % 0.0-0.9 [facility] Comment on above: IG% - Immature Granu locytes (promyelocytes, myelocytes and metamyelocytes) > 1% indicates that a LEFT SHIFT is Present. MCH (RBC) [Entitic mass] 26.2 pg 27.0-32.0 [facility] Nucleated RBC/100 WBC (Bld) [Ratio] 0.2 % 0-5 [facility] Laboratory - Microbiology an d Antimicrobial susceptibilityOrdered By: Dr. Hinson on 06-29-2022 Bacteria identified Cx Nom (Bld) No growth in 5 days. [facility] MCHC Auto (RBC) [Mass/Vol]Or dered By: Dr. Rao on 06-29-2022 MCHC (RBC) [Mass/Vol] 32.1 g/dL 32-36 [facility] No Panel InformationOrdered By: Dr. Rao on 06-29-2022 Estimated Creatinine Clearance Calc 108.46 ml/min [facility] Estimated GFR (MDRD) Amer 125 mL/min >60 [facility] Comment on above: GFR Calc Estimated GFR (MDRD) Non-Af Amer 103 mL/min >60 [facility] Comment on above: Non- GFR Calc Platelets bldOrdered By: Dr. Rao on 06-29-2022 Platelets (Bld) [#/Vol] 363 10*3/uL 150-450 [facility] Serum or plasma calcium hussein urement (mass/volume)Ordered By: Dr. Rao on 06-29-2022 Calcium [Mass/Vol] 8.4 mg/dL 8.5-10.1 [facility] Serum or plasma creatinine m easurement (mass/volume)Ordered By: Dr. Rao on 06-29-2022 Creatinine [Mass/Vol] 0.71 mg/dL 0.55-1.02 [facility] Comment on above: The validity of the calculated GFR & GFRAA in patients over 70 years has not been determined. Clinical correlation is essential. Serum or plasma urea nitroge n measurement (mass/volume)Ordered By: Dr. Rao on 06-29-2022 Urea nitrogen [Mass/Vol] 13 mg/dL 7-18 [facility] Thin prep Papanicolaou smear with manual screeningOrdered By: Dr. Rao on 06-29-2022 Thin prep Papanicolaou smear with manual screening 7 - [facility] Vancomycin troughOrdered By: Dr. Rao on 06-28-2022 Vancomycin trough [Mass/Vol] 15.6 ug/mL 5.0-15.0 [facility] Comment on above: VANCOMYCIN STANDARED DRUG THERAPY TROUGH LEVEL: 5.0 - 15.0 mg/L VANCOMYCIN HIGH INTENSITY THERAPY TROUGH LEVEL: 15.0 - 20.0 mg/L High Intensity therapy recommended for serious lifethreatening infections include:- Wieqrigxop-Yekhytcchmxm-Nhdaquvgh (Ventilator/Healtcare Associated)-Sepsis PLEASE CONTACT PHARMACY SERVICES (#7164) FOR INTERPRETATIONOF RESULTS. Bacteria identified Cx Nom ( Wound)Ordered By: Dr. Matias on 06-26-2022 Wound Culture Streptococcus agalactiae (B) [facility] Culture, urineOrdered By: Dr Marine Hinson on 06-26-2022 Bacteria identified Cx Nom (U) Culture exhibits no growth. [facility] Laboratory - Chemistry and C hemistry - challengeOrdered By: Dr. Morton on 06-26-2022 HCG ( test) Ql (U) Negative [facility] Comment on above: Very dilute urine sp ecimens, as indicated by a low specificgravity, may not contain retail field representative levels of hCG. If is still suspected, a first morning urinespecimen should be collected 48 hours later and tested. Absolute lymphocyte counton 06-25-2022 Lymphocytes Auto (Unsp spec) [#/Vol] 3.27 10*3/uL 0.83-4.51 [facility] Work Phone: Basophil percentageon 2021 Basophils/100 WBC (Bld) 0.7 % 0-[address] [facility] Work Phone: Chloride [Moles/Vol] 104 mmol/L 98-107 [facility] Work Phone: Eosinophils/100 WBC (Bld) 1.2 % 0-5 [facility] Work Phone: Glucose [Mass/Vol] 261 mg/dL 74-106 [facility] Work Phone: Comment on above: Glucose result great er than or equal to 200 mg/dLsuggests DIABETES MELLITUS per A.D.A. criteria. Neutrophils (Bld) [#/Vol] 4.8 10*3/uL 2.0-7.7 [facility] Work Phone: Neutrophils/100 WBC (Bld) 53.1 % 47-70 [facility] Work Phone: Potassium [Moles/Vol] 4.3 mmol/L 3.5-5.1 [facility] Work Phone: Sodium [Moles/Vol] 135 mmol/L 136-145 [facility] Work Phone: WBC (Bld) [#/Vol] 9.0 10*3/uL 4.4-11.0 [facility] Work Phone: Blood erythrocytes count (nu mber/volume)on 06-25-2022 RBC (Bld) [#/Vol] 4.62 10*6/uL 4.2-5.4 [facility] Work Phone: Blood hemoglobin measurement (mass/volume)on 06-25-2022 Hemoglobin (Bld) [Mass/Vol] 12.1 g/dL 12.0-15.0 [facility] Work Phone: Blood lymphocytes/100 leukoc yteson 06-25-2022 Lymphocytes/100 WBC (Bld) 36.4 % 19-41 [facility] Work Phone: Blood monocytes/100 leukocyt eson 06-25-2022 Monocytes/100 WBC (Bld) 7.0 % 0-[address] [facility] Work Phone: Blood platelet mean volumeon 06-25-2022 Platelet mean volume (Bld) [Entitic vol] 9.5 fL 6.2-12.0 [facility] Work Phone: Determination of erythrocyte mean corpuscular volume (MCV)on 06-25-2022 MCV (RBC) [Entitic vol] 82.0 fL 81-[address] [facility] Work Phone: [phone] Glucose Glucometer (BldC) [M ass/Vol]on 06-25-2022 Glucose [Mass/Vol] 263 mg/dL 74-106 [facility] Work Phone: [phone] Comment on above: MANAGEMENT OF PATIEN T CARE PER NURSING PROTOCOL Hematocrit Auto (Bld) [Volum e fraction]on 06-25-2022 Hematocrit (Bld) [Volume fraction] 37.9 % 37-47 [facility] Work Phone: [phone] Laboratory - Chemistry and C hemistry - challengeon 06-25-2022 CO2 [Moles/Vol] 24.0 mmol/L 21.0-32.0 [facility] Work Phone: [phone] Urea nitrogen/Creatinine [Mass ratio] 13.1 mg/mg 10-20 [facility] Work Phone: [phone] Laboratory - Hematology and Cell countson 06-25-2022 Erythrocyte distribution width (RBC) [Entitic vol] 41.4 fL 35.1-43.9 [facility] Work Phone: [phone] Erythrocyte distribution width (RBC) [Ratio] 14.1 % 11.6-14.6 [facility] Work Phone: [phone] Immature granulocytes/100 WBC (Bld) 1.600 % 0.0-0.9 [facility] Work Phone: [phone] Comment on above: IG% - Immature Granu locytes (promyelocytes, myelocytes and metamyelocytes) > 1% indicates that a LEFT SHIFT is Present. MCH (RBC) [Entitic mass] 26.2 pg 27.0-32.0 [facility] Work Phone: [phone] Nucleated RBC/100 WBC (Bld) [Ratio] 0 % 0-5 [facility] Work Phone: [phone] MCHC Auto (RBC) [Mass/Vol]on 06-25-2022 MCHC (RBC) [Mass/Vol] 31.9 g/dL 32-36 [facility]: [phone] No Panel Informationon 06-25 Estimated Creatinine Clearance Calc 101.33 ml/min [facility] Work Phone: Estimated GFR (MDRD) Amer 114 mL/min >60 [facility] Work Phone: Comment on above: GFR Calc Estimated GFR (MDRD) Non-Af Amer 95 mL/min >60 [facility] Work Phone: Comment on above: Non- GFR Calc Platelets bldon 06-25-2022 Platelets (Bld) [#/Vol] 353 10*3/uL 150-450 [facility] Work Phone: Serum or plasma calcium hussein urement (mass/volume)on 06-25-2022 Calcium [Mass/Vol] 8.6 mg/dL 8.5-10.1 [facility] Work Phone: Serum or plasma creatinine m easurement (mass/volume)on 06-25-2022 Creatinine [Mass/Vol] 0.76 mg/dL 0.55-1.02 [facility] Work Phone: Comment on above: The validity of the calculated GFR & GFRAA in patients over 70 years has not been determined. Clinical correlation is essential. Serum or plasma urea nitroge n measurement (mass/volume)on 06-25-2022 Urea nitrogen [Mass/Vol] 10 mg/dL 01-26 [facility] Work Phone: Thin prep Papanicolaou smear with manual screeningon 06-25-2022 Thin prep Papanicolaou smear with manual screening 7 11-23 [facility] Work Phone: Absolute lymphocyte counton 06-24-2022 Lymphocytes Auto (Unsp spec) [#/Vol] 3.15 10*3/uL 0.83-4.51 [facility] Work Phone: Basophil percentageOrdered B y: Dr. Hinson on 06-24-2022 Lactate [Moles/Vol] 3.0 mmol/L 0.4-2.0 [facility] Comment on above: Critical Result(s) C alled at: 18:06:09 06/24/2022 by: LUIS E VALENZUELA.DEMETRIO JANG4 RN MS-3 Results read back by same. Basophil percentage 0 SEEN /hpf 0-5 [facility] Bilirubin [Mass/Vol] 0.30 mg/dL 0.20-1.00 [facility] Comment on above: For patients on eltr ombopag therapy, use of Dimension [place] TBIL is not recommended. Protein [Mass/Vol] 8.0 g/dL 6.4-8.2 [facility] Basophil percentageon 2021 Basophils/100 WBC (Bld) 0.5 % 0-[address] [facility] Work Phone: Chloride [Moles/Vol] 104 mmol/L 98-107 [facility] Work Phone: [phone] Eosinophils/100 WBC (Bld) 0.7 % 0-5 [facility] Work Phone: [phone] Glucose [Mass/Vol] 318 mg/dL 74-106 [facility] Work Phone: Comment on above: Glucose result great er than or equal to 200 mg/dLsuggests DIABETES MELLITUS per A.D.A. criteria. Lactate [Moles/Vol] 4.8 mmol/L 0.4-2.0 [facility] Work Phone: Comment on above: Critical Result(s) C alled at: 13:11:31 06/24/2022 by: Gayathri Edmond. Results read back by same. Neutrophils (Bld) [#/Vol] 5.1 10*3/uL 2.0-7.7 [facility] Work Phone: Neutrophils/100 WBC (Bld) 56.2 % 47-70 [facility] Work Phone: [phone] Potassium [Moles/Vol] 3.9 mmol/L 3.5-5.1 [facility] Work Phone: [phone] Sodium [Moles/Vol] 138 mmol/L 136-145 [facility] Work Phone: WBC (Bld) [#/Vol] 9.1 10*3/uL 4.4-11.0 [facility] Work Phone: Bilirubin Test strip Ql (U)O rdered By: Dr. Hinson on 06-24-2022 Bilirubin Ql (U) Negative Negative [facility] Blood erythrocytes count (nu mber/volume)on 06-24-2022 RBC (Bld) [#/Vol] 4.73 10*6/uL 4.2-5.4 [facility] Work Phone: Blood hemoglobin measurement (mass/volume)on 06-24-2022 Hemoglobin (Bld) [Mass/Vol] 12.8 g/dL 12.0-15.0 [facility] Work Phone: Blood lymphocytes/100 leukoc yteson 06-24-2022 Lymphocytes/100 WBC (Bld) 34.6 % 19-41 [facility] Work Phone: Blood monocytes/100 leukocyt eson 06-24-2022 Monocytes/100 WBC (Bld) 6.8 % 0-[address] [facility] Work Phone: Blood platelet mean volumeon 06-24-2022 Platelet mean volume (Bld) [Entitic vol] 9.3 fL 6.2-12.0 [facility] Work Phone: Determination of erythrocyte mean corpuscular volume (MCV)on 06-24-2022 MCV (RBC) [Entitic vol] 81.2 fL 81-[address] [facility] Work Phone: Gram stain for investigation of transfusion reactionOrdered By: Dr. Matias on 06-24-2022 Microscopic observation Gram stain Nom (Unsp spec) [facility] Hematocrit Auto (Bld) [Volum e fraction]on 06-24-2022 Hematocrit (Bld) [Volume fraction] 38.4 % 37-47 [facility] Work Phone: Ketones Test strip Ql (U)Ord ered By: Dr. Hinson on 06-24-2022 Ketones Ql (U) 15 mg/dl Negative [facility] Laboratory - Chemistry and C hemistry - challengeOrdered By: Dr. Hinson on 06-24-2022 ALP [Catalytic activity/Vol] 76 U/L 45-117 [facility] ALT [Catalytic activity/Vol] 22 U/L 13-56 [facility] Globulin (S) [Mass/Vol] 5.2 g/dL 2.2-4.[address] [facility] Laboratory - Chemistry and C hemistry - challengeon 06-24-2022 CO2 [Moles/Vol] 28.0 mmol/L 21.0-32.0 [facility] Work Phone: Urea nitrogen/Creatinine [Mass ratio] 13.8 mg/mg 10-20 [facility] Work Phone: [phone] Laboratory - Hematology and Cell countson 06-24-2022 Erythrocyte distribution width (RBC) [Entitic vol] 41.3 fL 35.1-43.9 [facility] Work Phone: [phone] Erythrocyte distribution width (RBC) [Ratio] 14.2 % 11.6-14.6 [facility] Work Phone: Immature granulocytes/100 WBC (Bld) 1.200 % 0.0-0.9 [facility] Work Phone: Comment on above: IG% - Immature Granu locytes (promyelocytes, myelocytes and metamyelocytes) > 1% indicates that a LEFT SHIFT is Present. MCH (RBC) [Entitic mass] 27.1 pg 27.0-32.0 [facility] Work Phone: Nucleated RBC/100 WBC (Bld) [Ratio] 0 % 0-5 [facility] Work Phone: [phone] MCHC Auto (RBC) [Mass/Vol]on 06-24-2022 MCHC (RBC) [Mass/Vol] 33.3 g/dL 32-36 [facility] Work Phone: Mucus LM Ql (Urine sed)Order ed By: Dr. Hinson on 06-24-2022 Mucus Ql (Urine sed) 0 SEEN /hpf [facility] Nitrite Test strip Ql (U)Ord ered By: Dr. Hinson on 06-24-2022 Nitrite Ql (U) Negative Negative [facility] No Panel Informationon 06-24 Estimated Creatinine Clearance Calc 96.26 ml/min [facility] Work Phone: Estimated GFR (MDRD) Amer 109 mL/min >60 [facility] Work Phone: Comment on above: GFR Calc Estimated GFR (MDRD) Non-Af Amer 90 mL/min >60 [facility] Work Phone: Comment on above: Non- GFR Calc Platelets bldon 06-24-2022 Platelets (Bld) [#/Vol] 345 10*3/uL 150-450 [facility] Work Phone: Protein Test strip Ql (U)Ord ered By: Dr. Hinson on 06-24-2022 Protein Ql (U) 15 mg/dl Negative [facility] Serum or plasma albumin hussein urement (mass/volume)Ordered By: Dr. Hinson on 06-24-2022 Albumin [Mass/Vol] 2.8 g/dL 3.2-5.0 [facility] Serum or plasma albumin/glob ulin mass ratioOrdered By: Dr. Hinson on 06-24-2022 Albumin/Globulin [Mass ratio] 0.5 {ratio} 0.9-2.4 [facility] Serum or plasma calcium hussein urement (mass/volume)on 06-24-2022 Calcium [Mass/Vol] 9.1 mg/dL 8.5-10.1 [facility] Work Phone: Serum or plasma creatinine m easurement (mass/volume)on 06-24-2022 Creatinine [Mass/Vol] 0.80 mg/dL 0.55-1.02 [facility] Work Phone: Comment on above: The validity of the calculated GFR & GFRAA in patients over 70 years has not been determined. Clinical correlation is essential. Serum or plasma urea nitroge n measurement (mass/volume)on 06-24-2022 Urea nitrogen [Mass/Vol] 11 mg/dL 7-18 [facility] Work Phone: Squamous epithelial cells de tection in urine sediment by light microscopyOrdered By: Dr. Hinson on 06-24-2022 Epithelial cells.squamous LM Ql (Urine sed) 5-10 SEEN /hpf 5-10 [facility] Thin prep Papanicolaou smear with manual screeningOrdered By: Dr. Hinson on 06-24-2022 Thin prep Papanicolaou smear with manual screening 10 U/L 15-37 [facility] Thin prep Papanicolaou smear with manual screeningon 06-24-2022 Thin prep Papanicolaou smear with manual screening 6 5-15 [facility] Work Phone: Urine blood detectionOrdered By: Dr. Hinson on 06-24-2022 RBC Ql (U) 25 /ul Negative [facility] RBC Ql (U) 10-25 SEEN /hpf 0-5 [facility] Urine clarityOrdered By: Dr. Hinson on 06-24-2022 Clarity (U) Sl. Cloudy Clear [facility] Urine color determinationOrd ered By: Dr. Hinson on 06-24-2022 Color (U) Yellow Yellow [facility] Urine glucose detectionOrder ed By: Dr. Hinson on 06-24-2022 Glucose Ql (U) 1000 mg/dl Normal [facility] Urine leukocyte esterase det ection by dipstickOrdered By: Dr. Hinson on 06-24-2022 Leukocyte esterase Test strip Ql (U) Negative Negative [facility] Urine pHOrdered By: Dr. Vonda aden on 06-24-2022 pH (U) 5.0 [pH] 5.0 - 8.0 [facility] Urine sediment bacteria coun t by microscopy (number/high power field)Ordered By: Dr. Hinson on 06-24-2022 Bacteria LM.HPF (Urine sed) [#/Area] RARE /hpf None Seen [facility] Urine specific gravity measu rementOrdered By: Dr. Hinson on 06-24-2022 Specific gravity (U) [Rel density] 1.025 1.002-1.030 [facility] Urobilinogen Auto test strip Ql (U)Ordered By: Dr. Hinson on 06-24-2022 Urobilinogen Ql (U) Normal mg/dl Normal [facility] Whole blood hemoglobin A1c/t otal hemoglobin ratio (mass fraction)Ordered By: Dr. Rao on 06-24-2022 HbA1c (Bld) [Mass fraction] 10.6 % 3.8-5.6 [facility] Comment on above: Normal < 5.7 % Predi abetic 5.7 - 6.4 % Diabetic >or= 6.5 % Please note range changes. No Panel InformationOrdered By: Dr. Matias on 06-23-2022 Methicillin-Resist S.aureus DNA PCR Positive Negative [facility] Staphylococcus aureus DNA de tection by probe and target amplification methodOrdered By: Dr. Matias on 06-23-2022 S. aureus DNA REBECCA+probe Ql (Unsp spec) Positive Negative [facility] Absolute lymphocyte countOrd ered By: Dr. Matias on 05-07-2022 Lymphocytes Auto (Unsp spec) [#/Vol] 0.99 10*3/uL 0.83-4.51 [facility] Comment on above: Previous reported re sult: 5.07 X10^3/uLEdited by: BHUPINDER on 05/07/22:1437 AMENDED REPORT 05/07/221436 Absolute Lymph previously reported as: 5.07 H X10^3/uL Basophil percentageOrdered B y: Dr. Matias on 05-07-2022 Basophil percentage [employer] [facility] Comment on above: Previous reported re [...] 0.6 % Bilirubin [Mass/Vol] 0.20 mg/dL 0.20-1.00 [facility] Comment on above: For patients on eltr ombopag therapy, use of Dimension [place] TBIL is not recommended. Chloride [Moles/Vol] 101 mmol/L 98-107 [facility] Glucose [Mass/Vol] 207 mg/dL 74-106 [facility] Comment on above: Glucose result great er than or equal to 200 mg/dLsuggests DIABETES MELLITUS per A.D.A. criteria. Neutrophils (Bld) [#/Vol] 8.8 10*3/uL 2.0-7.7 [facility] Comment on above: Previous reported re sult: 4.8 X10^3/uLEdited by: BHUPINDER on 05/07/22:1436 AMENDED REPORT 05/07/221435 Absolute Neut previously reported as: 4.8 X10^3/uL Potassium [Moles/Vol] 4.0 mmol/L 3.5-5.1 [facility] Protein [Mass/Vol] 8.4 g/dL 6.4-8.2 [facility] Sodium [Moles/Vol] 134 mmol/L 136-145 [facility] WBC (Bld) [#/Vol] 11.1 10*3/uL 4.4-11.0 [facility] Blood band neutrophil count as percentage of total leukocytesOrdered By: Dr. Matias on 05-07-2022 Band form neutrophils/100 WBC (Bld) 6 % 0-5 [facility] Blood erythrocytes count (nu mber/volume)Ordered By: Dr. Matias on 05-07-2022 RBC (Bld) [#/Vol] 4.81 10*6/uL 4.2-5.4 [facility] Blood hemoglobin measurement (mass/volume)Ordered By: Dr. Matias on 05-07-2022 Hemoglobin (Bld) [Mass/Vol] 13.0 g/dL 12.0-15.0 [facility] Blood lymphocytes/100 leukoc ytesOrdered By: Dr. Matias on 05-07-2022 Lymphocytes/100 WBC (Bld) [employer] [facility] Comment on above: Previous reported re sult: 45.7 %Edited by: BHUPINDER on 05/07/22:1430 AMENDED REPORT 05/07/22 1430 LY% previously reported as: 45.7 H % Lymphocytes/100 WBC (Bld) 9 % 19-41 [facility] Blood monocytes/100 leukocyt esOrdered By: Dr. Matias on 05-07-2022 Monocytes/100 WBC (Bld) [employer] [facility] Comment on above: Previous reported re sult: 5.2 %Edited by: MBLEDU on 05/07/22:1430 AMENDED REPORT 05/07/22 1430 MONO% previously reported as: 5.2 % Monocytes/100 WBC (Bld) 12 % 0-[address] [facility] Blood platelet mean volumeOr dered By: Dr. Matias on 05-07-2022 Platelet mean volume (Bld) [Entitic vol] 9.0 fL 6.2-12.0 [facility] Blood platelet morphology de termination (nominal result)Ordered By: Dr. Matias on 05-07-2022 Platelet morphology finding Nom (Bld) LARGE [facility] Blood segmented neutrophils/ [address]: [address] Matias on 05-07-2022 Segmented neutrophils/100 WBC (Bld) 73 % 47-70 [facility] Determination of erythrocyte mean corpuscular volume (MCV)Ordered By: Dr. Matias on 05-07-2022 MCV (RBC) [Entitic vol] 81.3 fL 81-99 [facility] Hematocrit Auto (Bld) [Volum e fraction]Ordered By: Dr. Matias on 05-07-2022 Hematocrit (Bld) [Volume fraction] 39.1 % 37-47 [facility] Laboratory - Chemistry and C hemistry - challengeOrdered By: Dr. Matias on 05-07-2022 ALP [Catalytic activity/Vol] 76 U/L 45-117 [facility] ALT [Catalytic activity/Vol] 23 U/L 13-56 [facility] CO2 [Moles/Vol] 25.0 mmol/L 21.0-32.0 [facility] Globulin (S) [Mass/Vol] 5.0 g/dL 2.2-4.2 [facility] Urea nitrogen/Creatinine [Mass ratio] 17.4 mg/mg 10-20 [facility] Laboratory - Hematology and Cell countsOrdered By: Dr. Matias on 05-07-2022 Erythrocyte distribution width (RBC) [Entitic vol] 41.1 fL 35.1-43.9 [facility] Erythrocyte distribution width (RBC) [Ratio] 14.0 % 11.6-14.6 [facility] MCH (RBC) [Entitic mass] 27.0 pg 27.0-32.0 [facility] Nucleated RBC/100 WBC (Bld) [Ratio] 0 % 0-5 [facility] MCHC Auto (RBC) [Mass/Vol]Or dered By: Dr. Matias on 05-07-2022 MCHC (RBC) [Mass/Vol] 33.2 g/dL 32-36 [facility] No Panel InformationOrdered By: Dr. Matias on 05-07-2022 Atypical Lymphocytes RARE % [facility] Estimated GFR (MDRD) Amer 99 mL/min >60 [facility] Comment on above: GFR Calc Estimated GFR (MDRD) Non-Af Amer 82 mL/min >60 [facility] Comment on above: Non- GFR Calc Immature Granulocyte % (Auto) [employer] [facility] Comment on above: Previous reported re sult: 1.500 %Edited by: BHUPINDER on 05/07/22:1431 AMENDED REPORT 05/07/22 1431 IM GRAN % previously reported as: 1.500 H % IG% - Immature Granulocytes (promyelocytes, myelocytes and metamyelocytes) > 1% indicates that a LEFT SHIFT is Present. Platelets bldOrdered By: Dr. Matias on 05-07-2022 Platelets (Bld) [#/Vol] 369 10*3/uL 150-450 [facility] RBC morphologyOrdered By: Dr aMrine Matias on 05-07-2022 RBC morphology finding Nom (Bld) NORM C+C NORMAL NORM C&C [facility] Review by pathologiston 04-12 Pathologist review Franky (Unsp spec) [Interp] November [facility] Work Phone: Review by pathologistOrdered By: Dr. Matias on 05-07-2022 Pathologist review Franky (Unsp spec) [Interp] Reviewed [facility] Comment on above: Previous reported re sult: Zahraa waite Edited by: RGOOD on 05/08/22:1553Neutrophilic leukocytosis.Clinical correlation suggested.Franki Glez D.O. 05/08/22 AMENDED REPORT 05/08/22 4177 PATH REV previously reported as: Zahraa waite Serum or plasma albumin hussein urement (mass/volume)Ordered By: Dr. Matias on 05-07-2022 Albumin [Mass/Vol] 3.4 g/dL 3.2-5.0 [facility] Serum or plasma albumin/glob ulin mass ratioOrdered By: Dr. Matias on 05-07-2022 Albumin/Globulin [Mass ratio] 0.7 {ratio} 0.9-2.4 [facility] Serum or plasma calcium hussein urement (mass/volume)Ordered By: Dr. Matias on 05-07-2022 Calcium [Mass/Vol] 8.7 mg/dL 8.5-10.1 [facility] Serum or plasma creatinine m easurement (mass/volume)Ordered By: Dr. Matias on 05-07-2022 Creatinine [Mass/Vol] 0.86 mg/dL 0.55-1.02 [facility] Comment on above: The validity of the calculated GFR & GFRAA in patients over 70 years has not been determined. Clinical correlation is essential. Serum or plasma urea nitroge n measurement (mass/volume)Ordered By: Dr. Matias on 05-07-2022 Urea nitrogen [Mass/Vol] 15 mg/dL 7-18 [facility] Thin prep Papanicolaou smear with manual screeningOrdered By: Dr. Matias on 05-07-2022 Thin prep Papanicolaou smear with manual screening 10 U/L 15-37 [facility] Thin prep Papanicolaou smear with manual screening 8 5-15 [facility] Basophil percentageOrdered B y: [facility] on 04-20-2022 Chloride [Moles/Vol] 104 mmol/L 98-107 [facility] Glucose [Mass/Vol] 224 mg/dL 74-106 [facility] Comment on above: Glucose result great er than or equal to 200 mg/dLsuggests DIABETES MELLITUS per A.D.A. criteria. Potassium [Moles/Vol] 3.7 mmol/L 3.5-5.1 [facility] Sodium [Moles/Vol] 139 mmol/L 136-145 [facility] WBC (Bld) [#/Vol] 9.3 10*3/uL 4.4-11.0 [facility] Blood erythrocytes count (nu mber/volume)Ordered By: [facility] on 04-20-2022 RBC (Bld) [#/Vol] 3.93 10*6/uL 4.2-5.4 [facility] Blood hemoglobin measurement (mass/volume)Ordered By: [facility] on 04-20-2022 Hemoglobin (Bld) [Mass/Vol] 10.4 g/dL 12.0-15.0 [facility] Blood platelet mean volumeOr dered By: [facility] on 04-20-2022 Platelet mean volume (Bld) [Entitic vol] 9.6 fL 6.2-12.0 [facility] Determination of erythrocyte mean corpuscular volume (MCV)Ordered By: [facility] on 04-20-2022 MCV (RBC) [Entitic vol] 83.7 fL 81-[address] [facility] Erythrocyte sedimentation ra teOrdered By: [facility] on 04-20-2022 ESR (Bld) [Velocity] 60 mm/h 0-30 [facility] Hematocrit Auto (Bld) [Volum e fraction]Ordered By: [facility] on 04-20-2022 Hematocrit (Bld) [Volume fraction] 32.9 % 37-47 [facility] Laboratory - Chemistry and C hemistry - challengeOrdered By: [facility] on 04-20-2022 CO2 [Moles/Vol] 28.0 mmol/L 21.0-32.0 [facility] Urea nitrogen/Creatinine [Mass ratio] 16.3 mg/mg 10-20 [facility] Laboratory - Hematology and Cell countsOrdered By: [facility] on 04-20-2022 Erythrocyte distribution width (RBC) [Entitic vol] 41.4 fL 35.1-43.9 [facility] Erythrocyte distribution width (RBC) [Ratio] 13.5 % 11.6-14.6 [facility] MCH (RBC) [Entitic mass] 26.5 pg 27.0-32.0 [facility] Auto (RBC) [Mass/Vol]Or dered By: [facility] on 04-20-2022 MCHC (RBC) [Mass/Vol] 31.6 g/dL 32-36 [facility] No Panel InformationOrdered By: [facility] on 04-20-2022 Estimated GFR (MDRD) Amer 147 mL/min >60 [facility] Comment on above: GFR Calc Estimated GFR (MDRD) Non-Af Amer 122 mL/min >60 [facility] Comment on above: Non- GFR Calc Platelets bldOrdered By: [facility] on 04-20-2022 Platelets (Bld) [#/Vol] 509 10*3/uL 150-450 [facility] Serum or plasma calcium hussein urement (mass/volume)Ordered By: [facility] on 04-20-2022 Calcium [Mass/Vol] 8.5 mg/dL 8.5-10.1 [facility] Serum or plasma creatinine m easurement (mass/volume)Ordered By: [facility] on 04-20-2022 Creatinine [Mass/Vol] 0.61 mg/dL 0.55-1.02 [facility] Comment on above: The validity of the calculated GFR & GFRAA in patients over 70 years has not been determined. Clinical correlation is essential. Serum or plasma urea nitroge n measurement (mass/volume)Ordered By: [facility] on 04-20-2022 Urea nitrogen [Mass/Vol] 10 mg/dL 7-18 [facility] Thin prep Papanicolaou smear with manual screeningOrdered By: [facility] on 04-20-2022 Thin prep Papanicolaou smear with manual screening 7 5-15 [facility] Vancomycin troughOrdered By: [facility] on 04-20-2022 Vancomycin trough [Mass/Vol] 7.2 ug/mL 5.0-15.0 [facility] Comment on above: VANCOMYCIN STANDARED DRUG THERAPY TROUGH LEVEL: 5.0 - 15.0 mg/L VANCOMYCIN HIGH INTENSITY THERAPY TROUGH LEVEL: 15.0 - 20.0 mg/L High Intensity therapy recommended for serious lifethreatening infections include:- Ogfzpzuwxc-Savhusrrlvte-Yiogkaumb (Ventilator/Healtcare Associated)-Sepsis PLEASE CONTACT PHARMACY SERVICES (#[id number]) FOR INTERPRETATIONOF RESULTS. Basophil percentageon 2021 Chloride [Moles/Vol] 103 mmol/L 98-107 [facility] Work Phone: [phone] Glucose [Mass/Vol] 188 mg/dL 74-106 [facility] Work Phone: [phone] Comment on above: Fasting Glucose resu lt greater than or equal to 126 mg/dL suggests DIABETES MELLITUS per A.D.A. criteria. Potassium [Moles/Vol] 4.3 mmol/L 3.5-5.1 [facility] Work Phone: [phone] Sodium [Moles/Vol] 137 mmol/L 136-145 [facility] Work Phone: [phone] WBC (Bld) [#/Vol] 10.0 10*3/uL 4.4-11.0 [facility] Work Phone: [phone] Blood erythrocytes count (nu mber/volume)on 04-13-2022 RBC (Bld) [#/Vol] 4.32 10*6/uL 4.2-5.4 [facility] Work Phone: [phone] Blood hemoglobin measurement (mass/volume)on 04-13-2022 Hemoglobin (Bld) [Mass/Vol] 11.5 g/dL 12.0-15.0 [facility] Work Phone: [phone] Blood platelet mean volumeon 04-13-2022 Platelet mean volume (Bld) [Entitic vol] 9.2 fL 6.2-12.0 [facility] Work Phone: [phone] Determination of erythrocyte mean corpuscular volume (MCV)on 04-13-2022 MCV (RBC) [Entitic vol] 84.7 fL 81-[address] [facility] Work Phone: [phone] Erythrocyte sedimentation ra abeba 04-13-2022 ESR (Bld) [Velocity] 90 mm/h 0-30 [facility] Work Phone: [phone] Hematocrit Auto (Bld) [Volum e fraction]on 04-13-2022 Hematocrit (Bld) [Volume fraction] 36.6 % 37-47 [facility] Work Phone: Laboratory - Chemistry and C hemistry - challengeon 04-13-2022 CO2 [Moles/Vol] 25.0 mmol/L 21.0-32.0 [facility] Work Phone: Urea nitrogen/Creatinine [Mass ratio] 18.8 mg/mg 10-20 [facility] Work Phone: [phone] Laboratory - Hematology and Cell countson 04-13-2022 Erythrocyte distribution width (RBC) [Entitic vol] 41.8 fL 35.1-43.9 [facility] Work Phone: [phone] Erythrocyte distribution width (RBC) [Ratio] 13.4 % 11.6-14.6 [facility] Work Phone: MCH (RBC) [Entitic mass] 26.6 pg 27.0-32.0 [facility] Work Phone: [phone] MCHC Auto (RBC) [Mass/Vol]on 04-13-2022 MCHC (RBC) [Mass/Vol] 31.4 g/dL 32-36 [facility] Work Phone: No Panel Informationon 04-13 Estimated GFR (MDRD) Amer 128 mL/min >60 [facility] Work Phone: Comment on above: GFR Calc Estimated GFR (MDRD) Non-Af Amer 106 mL/min >60 [facility] Work Phone: [phone] Comment on above: Non- GFR Calc Platelets bldon 04-13-2022 Platelets (Bld) [#/Vol] 609 10*3/uL 150-450 [facility] Work Phone: [phone] Serum or plasma calcium hussein urement (mass/volume)on 04-13-2022 Calcium [Mass/Vol] 9.4 mg/dL 8.5-10.1 [facility] Work Phone: [phone] Serum or plasma creatinine m easurement (mass/volume)on 04-13-2022 Creatinine [Mass/Vol] 0.69 mg/dL 0.55-1.02 [facility] Work Phone: Comment on above: The validity of the calculated GFR & GFRAA in patients over 70 years has not been determined. Clinical correlation is essential. Serum or plasma urea nitroge n measurement (mass/volume)on 04-13-2022 Urea nitrogen [Mass/Vol] 13 mg/dL 7-18 [facility] Work Phone: [phone] Thin prep Papanicolaou smear with manual screeningon 04-13-2022 Thin prep Papanicolaou smear with manual screening 9 5-15 [facility] Work Phone: [phone] Vancomycin troughon 04-13-20 Vancomycin trough [Mass/Vol] 19.3 ug/mL 5.0-15.0 [facility] Work Phone: Comment on above: VANCOMYCIN STANDARED DRUG THERAPY TROUGH LEVEL: 5.0 - 15.0 mg/L VANCOMYCIN HIGH INTENSITY THERAPY TROUGH LEVEL: 15.0 - 20.0 mg/L High Intensity therapy recommended for serious lifethreatening infections include:- Cdqrnssndt-Lfluyydnlhey-Jutngskun (Ventilator/Healtcare Associated)-Sepsis PLEASE CONTACT PHARMACY SERVICES (#[id number]) FOR INTERPRETATIONOF RESULTS. Basophil percentageon 2021 Chloride [Moles/Vol] 100 mmol/L 98-107 [facility] Work Phone: [phone] Cholesterol [Mass/Vol] 143 mg/dL <200 [facility] Work Phone: Comment on above: <200 mg/dL Desirable 200-240 mg/dL Borderline >240 mg/dL High Risk Glucose [Mass/Vol] 217 mg/dL 74-106 [facility] Work Phone: Comment on above: Glucose result great er than or equal to 200 mg/dLsuggests DIABETES MELLITUS per A.D.A. criteria. Potassium [Moles/Vol] 3.7 mmol/L 3.5-5.1 [facility] Work Phone: [phone] Sodium [Moles/Vol] 137 mmol/L 136-145 [facility] Work Phone: [phone] Triglyceride [Mass/Vol] 170 mg/dL <[address] [facility] Work Phone: Comment on above: The drugs N-Acetylcy steine and Metamizole may falsely depress this assay.Serum Triglycerides Reference Interval Normal <150 mg/dL Borderline high 150 - 199 mg/dL High 200 - 499 mg/dL Very High > or = 500 mg/dL WBC (Bld) [#/Vol] 9.1 10*3/uL 4.4-11.0 [facility] Work Phone: Blood erythrocytes count (nu mber/volume)on 04-10-2022 RBC (Bld) [#/Vol] 3.85 10*6/uL 4.2-5.4 [facility] Work Phone: Blood hemoglobin measurement (mass/volume)on 04-10-2022 Hemoglobin (Bld) [Mass/Vol] 10.2 g/dL 12.0-15.0 [facility] Work Phone: Blood platelet mean volumeon 04-10-2022 Platelet mean volume (Bld) [Entitic vol] 9.1 fL 6.2-12.0 [facility] Work Phone: Determination of erythrocyte mean corpuscular volume (MCV)on 04-10-2022 MCV (RBC) [Entitic vol] 82.6 fL 81-[address] [facility] Work Phone: Erythrocyte sedimentation ra abeba 04-10-2022 ESR (Bld) [Velocity] 58 mm/h 0-30 [facility] Work Phone: Hematocrit Auto (Bld) [Volum e fraction]on 04-10-2022 Hematocrit (Bld) [Volume fraction] 31.8 % 37-47 [facility] Work Phone: Laboratory - Chemistry and C hemistry - challengeon 04-10-2022 CO2 [Moles/Vol] 32.0 mmol/L 21.0-32.0 [facility] Work Phone: Cobalamin (Vitamin B12) [Mass/Vol] 216 pg/mL 211-911 [facility] Work Phone: Urea nitrogen/Creatinine [Mass ratio] 22.7 mg/mg 10-20 [facility] Work Phone: [phone] Laboratory - Hematology and Cell countson 04-10-2022 Erythrocyte distribution width (RBC) [Entitic vol] 39.7 fL 35.1-43.9 [facility] Work Phone: [phone] Erythrocyte distribution width (RBC) [Ratio] 13.2 % 11.6-14.6 [facility] Work Phone: [phone] MCH (RBC) [Entitic mass] 26.5 pg 27.0-32.0 [facility] Work Phone: [phone] MCHC Auto (RBC) [Mass/Vol]on 04-10-2022 MCHC (RBC) [Mass/Vol] 32.1 g/dL 32-36 [facility] Work Phone: No Panel Informationon 04-10 Estimated GFR (MDRD) Amer 146 mL/min >60 [facility] Work Phone: [phone] Comment on above: GFR Calc Estimated GFR (MDRD) Non-Af Amer 120 mL/min >60 [facility] Work Phone: [phone] Comment on above: Non- GFR Calc Vitamin D 25-Hydroxy 18.5 ng/mL [facility] Work Phone: [phone] Comment on above: Vitamin D 25(OH) Sta tus Range Deficiency <20 ng/mL (50nmol/L) Insufficiency 20 - 30 ng/mL (50 - 75 nmol/L) Sufficiency 30 - 100 ng/mL (75 - 250 nmol/L) Toxicity >100 ng/mL (>250 nmol/L) Platelets bldon 04-10-2022 Platelets (Bld) [#/Vol] 540 10*3/uL 150-450 [facility] Work Phone: [phone] Serum or plasma calcium hussein urement (mass/volume)on 04-10-2022 Calcium [Mass/Vol] 8.9 mg/dL 8.5-10.1 [facility] Work Phone: [phone] Serum or plasma cholesterol in HDL measurement (mass/volume)on 04-10-2022 Cholesterol in HDL [Mass/Vol] 23 mg/dL >40 [facility] Work Phone: Comment on above: The drugs N-Acetylcy steine and Metamizole may falsely depress this assay. Reference Range HDL <40 mg/dL Low HDL Cholesterol HDL >or= 60 mg/dL High HDL Cholesterol Serum or plasma cholesterol in VLDL measurement (mass/volume)on 04-10-2022 Cholesterol in VLDL [Mass/Vol] 34 mg/dL 5-40 [facility] Work Phone: Serum or plasma creatinine m easurement (mass/volume)on 04-10-2022 Creatinine [Mass/Vol] 0.62 mg/dL 0.55-1.02 [facility] Work Phone: Comment on above: The validity of the calculated GFR & GFRAA in patients over 70 years has not been determined. Clinical correlation is essential. Serum or plasma low density lipoprotein (LDL) cholesterol measurement (mass/volume)on 04-10-2022 Cholesterol in LDL [Mass/Vol] 86 mg/dL 0-130 [facility] Work Phone: Serum or plasma transthyreti n measurement (mass/volume)on 04-10-2022 Prealbumin [Mass/Vol] 11.5 mg/dL 20.0-40.0 [facility] Work Phone: Serum or plasma urea nitroge n measurement (mass/volume)on 04-10-2022 Urea nitrogen [Mass/Vol] 14 mg/dL 7-18 [facility] Work Phone: Thin prep Papanicolaou smear with manual screeningon 04-10-2022 Thin prep Papanicolaou smear with manual screening 5 5-15 [facility] Work Phone: Absolute lymphocyte counton 04-09-2022 Lymphocytes Auto (Unsp spec) [#/Vol] 2.68 10*3/uL 0.83-4.51 [facility] Work Phone: Basophil percentageon 2021 Basophils/100 WBC (Bld) 0.8 % 0-[address] [facility] Work Phone: Chloride [Moles/Vol] 102 mmol/L 98-107 [facility] Work Phone: Eosinophils/100 WBC (Bld) 3.2 % 0-5 [facility] Work Phone: Glucose [Mass/Vol] 190 mg/dL 74-106 [facility] Work Phone: Comment on above: Fasting Glucose resu lt greater than or equal to 126 mg/dL suggests DIABETES MELLITUS per A.D.A. criteria. Neutrophils (Bld) [#/Vol] 3.7 10*3/uL 2.0-7.7 [facility] Work Phone: Neutrophils/100 WBC (Bld) 49.3 % 47-70 [facility] Work Phone: Potassium [Moles/Vol] 3.6 mmol/L 3.5-5.1 [facility] Work Phone: Sodium [Moles/Vol] 138 mmol/L 136-145 [facility] Work Phone: WBC (Bld) [#/Vol] 7.5 10*3/uL 4.4-11.0 [facility] Work Phone: Blood erythrocytes count (nu mber/volume)on 04-09-2022 RBC (Bld) [#/Vol] 3.73 10*6/uL 4.2-5.4 [facility] Work Phone: Blood hemoglobin measurement (mass/volume)on 04-09-2022 Hemoglobin (Bld) [Mass/Vol] 9.8 g/dL 12.0-15.0 [facility] Work Phone: Blood lymphocytes/100 leukoc yteson 04-09-2022 Lymphocytes/100 WBC (Bld) 35.8 % 19-41 [facility] Work Phone: Blood monocytes/100 leukocyt eson 04-09-2022 Monocytes/100 WBC (Bld) 9.2 % 0-[address] [facility] Work Phone: [phone] Blood platelet mean volumeon 04-09-2022 Platelet mean volume (Bld) [Entitic vol] 8.8 fL 6.2-12.0 [facility] Work Phone: [phone] Determination of erythrocyte mean corpuscular volume (MCV)on 04-09-2022 MCV (RBC) [Entitic vol] 81.8 fL 81-[address] [facility] Work Phone: [phone] Glucose Glucometer (BldC) [M ass/Vol]on 04-09-2022 Glucose [Mass/Vol] 251 mg/dL 74-106 [facility] Work Phone: [phone] Comment on above: MANAGEMENT OF PATIEN T CARE PER NURSING PROTOCOL Glucose [Mass/Vol] 281 mg/dL -106 [facility] Work Phone: [phone] Comment on above: MANAGEMENT OF PATIEN T CARE PER NURSING PROTOCOL Hematocrit Auto (Bld) [Volum e fraction]on 04-09-2022 Hematocrit (Bld) [Volume fraction] 30.5 % 37-47 [facility] Work Phone: [phone] Laboratory - Chemistry and C hemistry - challengeon 04-09-2022 CO2 [Moles/Vol] 28.0 mmol/L 21.0-32.0 [facility] Work Phone: [phone] Urea nitrogen/Creatinine [Mass ratio] 17.2 mg/mg 10-20 [facility] Work Phone: [phone] Laboratory - Hematology and Cell countson 04-09-2022 Erythrocyte distribution width (RBC) [Entitic vol] 38.9 fL 35.1-43.9 [facility] Work Phone: [phone] Erythrocyte distribution width (RBC) [Ratio] 13.0 % 11.6-14.6 [facility] Work Phone: [phone] Immature granulocytes/100 WBC (Bld) 1.700 % 0.0-0.9 [facility] Work Phone: [phone] Comment on above: IG% - Immature Granu locytes (promyelocytes, myelocytes and metamyelocytes) > 1% indicates that a LEFT SHIFT is Present. MCH (RBC) [Entitic mass] 26.3 pg 27.0-32.0 [facility] Work Phone: Nucleated RBC/100 WBC (Bld) [Ratio] 0 % 0-5 [facility] Work Phone: MCHC Auto (RBC) [Mass/Vol]on 04-09-2022 MCHC (RBC) [Mass/Vol] 32.1 g/dL 32-36 [facility] Work Phone: No Panel Informationon 04-09 Estimated Creatinine Clearance Calc 120.32 ml/min [facility] Work Phone: Estimated GFR (MDRD) Amer 140 mL/min >60 [facility] Work Phone: Comment on above: GFR Calc Estimated GFR (MDRD) Non-Af Amer 116 mL/min >60 [facility] Work Phone: Comment on above: Non- GFR Calc Platelets bldon 04-09-2022 Platelets (Bld) [#/Vol] 478 10*3/uL 150-450 [facility] Work Phone: Serum or plasma calcium hussein urement (mass/volume)on 04-09-2022 Calcium [Mass/Vol] 8.7 mg/dL 8.5-10.1 [facility] Work Phone: Serum or plasma creatinine m easurement (mass/volume)on 04-09-2022 Creatinine [Mass/Vol] 0.64 mg/dL 0.55-1.02 [facility] Work Phone: Comment on above: The validity of the calculated GFR & GFRAA in patients over 70 years has not been determined. Clinical correlation is essential. Serum or plasma urea nitroge n measurement (mass/volume)on 04-09-2022 Urea nitrogen [Mass/Vol] 11 mg/dL 7-18 [facility] Work Phone: Thin prep Papanicolaou smear with manual screeningon 04-09-2022 Thin prep Papanicolaou smear with manual screening 8 5-15 [facility] Work Phone: [phone] Blood manual differential co mment interpretation (narrative result)on 04-08-2022 Manual differential comment Franky (Bld) [Interp] SCANNED [facility] Work Phone: [phone] Blood platelet adequacy dete ction by light microscopyon 04-08-2022 Platelets LM Ql (Bld) ADEQUATE ADEQ [facility] Work Phone: [phone] Vancomycin troughon 04-08-20 Vancomycin trough [Mass/Vol] 10.2 ug/mL 5.0-15.0 [facility] Work Phone: [phone] Comment on above: VANCOMYCIN STANDARED DRUG THERAPY TROUGH LEVEL: 5.0 - 15.0 mg/L VANCOMYCIN HIGH INTENSITY THERAPY TROUGH LEVEL: 15.0 - 20.0 mg/L High Intensity therapy recommended for serious lifethreatening infections include:- Jwezwckpat-Olrdcdmjvnlh-Wsmswmcxb (Ventilator/Healtcare Associated)-Sepsis PLEASE CONTACT PHARMACY SERVICES (#[id number]) FOR INTERPRETATIONOF RESULTS. Basophil percentageon 2021 Bilirubin [Mass/Vol] 0.70 mg/dL 0.20-1.00 [facility] Work Phone: [phone] Comment on above: For patients on eltr ombopag therapy, use of Dimension [place] TBIL is not recommended. Protein [Mass/Vol] 7.7 g/dL 6.4-8.2 [facility] Work Phone: [phone] Laboratory - Chemistry and C hemistry - challengeon 04-07-2022 ALP [Catalytic activity/Vol] 121 U/L 45-117 [facility] Work Phone: [phone] ALT [Catalytic activity/Vol] 9 U/L 13-56 [facility] Work Phone: [phone] Globulin (S) [Mass/Vol] 5.4 g/dL 2.2-4.[address] [facility] Work Phone: [phone] Serum or plasma albumin hussein urement (mass/volume)on 04-07-2022 Albumin [Mass/Vol] 2.3 g/dL 3.2-5.0 [facility] Work Phone: Serum or plasma albumin/glob ulin mass ratioon 04-07-2022 Albumin/Globulin [Mass ratio] 0.4 {ratio} 0.9-2.4 [facility] Work Phone: Thin prep Papanicolaou smear with manual screeningon 04-07-2022 Thin prep Papanicolaou smear with manual screening 6 U/L 15-37 [facility] Work Phone: Absolute lymphocyte counton 04-06-2022 Lymphocytes Auto (Unsp spec) [#/Vol] 2.55 10*3/uL 0.83-4.51 [facility] Work Phone: Basophil percentageon 2021 Basophils/100 WBC (Bld) 0.2 % 0-[address] [facility] Work Phone: Chloride [Moles/Vol] 94 mmol/L 98-107 [facility] Work Phone: Eosinophils/100 WBC (Bld) 0.0 % 0-5 [facility] Work Phone: Glucose [Mass/Vol] 396 mg/dL 74-106 [facility] Work Phone: Comment on above: Glucose result great er than or equal to 200 mg/dLsuggests DIABETES MELLITUS per A.D.A. criteria. Neutrophils (Bld) [#/Vol] 18.0 10*3/uL 2.0-7.7 [facility] Work Phone: Neutrophils/100 WBC (Bld) 80.1 % 47-70 [facility] Work Phone: Potassium [Moles/Vol] 3.8 mmol/L 3.5-5.1 [facility]: Sodium [Moles/Vol] 130 mmol/L 136-145 [facility] Work Phone: WBC (Bld) [#/Vol] 22.4 10*3/uL 4.4-11.0 [facility] Work [facility]: Beta hCG serum qualon 09-26- 2022 Beta HCG ( test) Ql Negative [facility] Work Phone: Blood erythrocytes count (nu mber/volume)on 04-06-2022 RBC (Bld) [#/Vol] 4.48 10*6/uL 4.2-5.4 [facility] Work Phone: Blood hemoglobin measurement (mass/volume)on 04-06-2022 Hemoglobin (Bld) [Mass/Vol] 12.0 g/dL 12.0-15.0 [facility] Work Phone: Blood lymphocytes/100 leukoc yteson 04-06-2022 Lymphocytes/100 WBC (Bld) 11.4 % 19-41 [facility] Work Phone: Blood monocytes/100 leukocyt eson 04-06-2022 Monocytes/100 WBC (Bld) 7.1 % 0-10 [facility] [facility] Work Phone: Blood platelet mean volumeon 04-06-2022 Platelet mean volume (Bld) [Entitic vol] 9.5 fL 6.2-12.0 [facility] Work Phone: Determination of erythrocyte mean corpuscular volume (MCV)on 04-06-2022 MCV (RBC) [Entitic vol] 82.1 fL 81-[address] [facility] Work Phone: Erythrocyte sedimentation ra abeba 04-06-2022 ESR (Bld) [Velocity] 118 mm/h 0-30 [facility] Work Phone: Hematocrit Auto (Bld) [Volum e fraction]on 04-06-2022 Hematocrit (Bld) [Volume fraction] 36.8 % 37-47 [facility] Work Phone: Laboratory - Chemistry and C hemistry - challengeon 04-06-2022 CO2 [Moles/Vol] 25.0 mmol/L 21.0-32.0 [facility] Work Phone: Urea nitrogen/Creatinine [Mass ratio] 5.9 mg/mg 10-20 [facility] Work Phone: Laboratory - Hematology and Cell countson 04-06-2022 Erythrocyte distribution width (RBC) [Entitic vol] 39.4 fL 35.1-43.9 [facility] Work Phone: [phone] Erythrocyte distribution width (RBC) [Ratio] 13.2 % 11.6-14.6 [facility] Work Phone: [phone] Immature granulocytes/100 WBC (Bld) 1.200 % 0.0-0.9 [facility] Work Phone: [phone] Comment on above: IG% - Immature Granu locytes (promyelocytes, myelocytes and metamyelocytes) > 1% indicates that a LEFT SHIFT is Present. MCH (RBC) [Entitic mass] 26.8 pg 27.0-32.0 [facility] Work Phone: [phone] Nucleated RBC/100 WBC (Bld) [Ratio] 0 % 0-5 [facility] Work Phone: [phone] MCHC Auto (RBC) [Mass/Vol]on 04-06-2022 MCHC (RBC) [Mass/Vol] 32.6 g/dL 32-36 [facility] Work Phone: [phone] No Panel Informationon 04-06 Estimated Creatinine Clearance Calc 76.25 ml/min [facility] Work Phone: [phone] Estimated GFR (MDRD) Amer 83 mL/min >60 [facility] Work Phone: [phone] Comment on above: GFR Calc Estimated GFR (MDRD) Non-Af Amer 68 mL/min >60 [facility] Work Phone: [phone] Comment on above: Non- GFR Calc Platelets bldon 04-06-2022 Platelets (Bld) [#/Vol] 495 10*3/uL 150-450 [facility] Work Phone: [phone] Review by pathologiston 03-13 Pathologist review Franky (Unsp spec) [Interp] May foll [facility] Work Phone: [phone] Pathologist review Franky (Unsp spec) [Interp] Reviewed [facility] Work Phone: Comment on above: Previous reported re sult: Zahraa ravindra Edited by: RGOOD on 04/07/22:1303Neutrophilic leukocytosis with left shift. Thrombocytosis.Clinical correlation necessary.Patrick Castellon M.D. 04/07/22 AMENDED REPORT 04/07/22 1303 PATH REV previously reported as: Zahraa ravindra Serum or plasma C reactive p rotein measurement (mass/volume)on 04-06-2022 CRP [Mass/Vol] 321.00 mg/L 0.0-3.0 [facility] Work Phone: Comment on above: C-Reactive Protein ( CRP) provides useful information for thediagnosis, therapy and monitoring of inflammatory processesand associated diseases. For the evaluation of Relative Riskfor Cardiovascular Disease, a High Sensitivity CRP (HSCRP)should be ordered. Serum or plasma acetone hussein urement (mass/volume)on 04-06-2022 Acetone [Mass/Vol] Negative NEG [facility] Work Phone: Serum or plasma calcium hussein urement (mass/volume)on 04-06-2022 Calcium [Mass/Vol] 9.7 mg/dL 8.5-10.1 [facility] Work Phone: Serum or plasma creatinine m easurement (mass/volume)on 04-06-2022 Creatinine [Mass/Vol] 1.01 mg/dL 0.55-1.02 [facility] Work Phone: Comment on above: The validity of the calculated GFR & GFRAA in patients over 70 years has not been determined. Clinical correlation is essential. Serum or plasma urea nitroge n measurement (mass/volume)on 04-06-2022 Urea nitrogen [Mass/Vol] 6 mg/dL 7-18 [facility] Work Phone: Thin prep Papanicolaou smear with manual screeningon 04-06-2022 Thin prep Papanicolaou smear with manual screening 11 5-15 [facility] Work Phone: Whole blood hemoglobin A1c/t otal hemoglobin ratio (mass fraction)on 04-06-2022 HbA1c (Bld) [Mass fraction] 10.0 % 3.8-5.6 [facility] Work Phone: Comment on above: Normal < 5.7 % Predi abetic 5.7 - 6.4 % Diabetic >or= 6.5 % Please note range changes. Absolute lymphocyte counton 04-05-2022 Lymphocytes Auto (Unsp spec) [#/Vol] 2.49 10*3/uL 0.83-4.51 [facility] Work Phone: Basophil percentageon 2021 Basophils/100 WBC (Bld) 0.2 % 0-[address] [facility] Work Phone: Chloride [Moles/Vol] 93 mmol/L 98-107 [facility] Work Phone: Eosinophils/100 WBC (Bld) 0.2 % 0-5 [facility] Work Phone: Glucose [Mass/Vol] 389 mg/dL 74-106 [facility] Work Phone: Comment on above: Glucose result great er than or equal to 200 mg/dLsuggests DIABETES MELLITUS per A.D.A. criteria. Lactate [Moles/Vol] 2.5 mmol/L 0.4-2.0 [facility] Work [facility]: Comment on above: Critical Result(s) C alled at: 13:33:37 04/05/2022 by: Gayathri Torres. Results read back by same. Neutrophils (Bld) [#/Vol] 13.7 10*3/uL 2.0-7.7 [facility] Work Phone: Neutrophils/100 WBC (Bld) 78.3 % 47-70 [facility] Work Phone: Potassium [Moles/Vol] 4.0 mmol/L 3.5-5.1 [facility]: Sodium [Moles/Vol] 132 mmol/L 136-145 [facility] Work Phone: [phone] WBC (Bld) [#/Vol] 17.5 10*3/uL 4.4-11.0 [facility] Work Phone: Blood erythrocytes count (nu mber/volume)on 04-05-2022 RBC (Bld) [#/Vol] 4.50 10*6/uL 4.2-5.4 [facility] Work Phone: Blood hemoglobin measurement (mass/volume)on 04-05-2022 Hemoglobin (Bld) [Mass/Vol] 12.7 g/dL 12.0-15.0 [facility] Work Phone: [phone] Blood lymphocytes/100 leukoc yteson 04-05-2022 Lymphocytes/100 WBC (Bld) 14.2 % 19-41 [facility] Work Phone: [phone] Blood monocytes/100 leukocyt eson 04-05-2022 Monocytes/100 WBC (Bld) 6.3 % 0-[address] [facility] Work Phone: [phone] Blood platelet mean volumeon 04-05-2022 Platelet mean volume (Bld) [Entitic vol] 9.7 fL 6.2-12.0 [facility] Work Phone: Determination of erythrocyte mean corpuscular volume (MCV)on 04-05-2022 MCV (RBC) [Entitic vol] 82.2 fL 81-[address] [facility] Work Phone: [phone] Hematocrit Auto (Bld) [Volum e fraction]on 04-05-2022 Hematocrit (Bld) [Volume fraction] 37.0 % 37-47 [facility] Work Phone: [phone] Laboratory - Chemistry and C hemistry - challengeon 04-05-2022 CO2 [Moles/Vol] 28.0 mmol/L 21.0-32.0 [facility] Work Phone: [phone] Urea nitrogen/Creatinine [Mass ratio] 8.5 mg/mg 10-20 [facility] Work Phone: [phone] Laboratory - Hematology and Cell countson 04-05-2022 Erythrocyte distribution width (RBC) [Entitic vol] 40.1 fL 35.1-43.9 [facility] Work Phone: [phone] Erythrocyte distribution width (RBC) [Ratio] 13.5 % 11.6-14.6 [facility] Work Phone: [phone] Immature granulocytes/100 WBC (Bld) 0.800 % 0.0-0.9 [facility] Work Phone: [phone] Comment on above: IG% - Immature Granu locytes (promyelocytes, myelocytes and metamyelocytes) > 1% indicates that a LEFT SHIFT is Present. MCH (RBC) [Entitic mass] 28.2 pg 27.0-32.0 [facility] Work Phone: [phone] Nucleated RBC/100 WBC (Bld) [Ratio] 0 % 0-5 [facility] Work Phone: [phone] MCHC Auto (RBC) [Mass/Vol]on 04-05-2022 MCHC (RBC) [Mass/Vol] 34.3 g/dL 32-36 [facility] Work Phone: No Panel Informationon 04-05 Estimated Creatinine Clearance Calc 92.78 ml/min [facility] Work Phone: [phone] Estimated GFR (MDRD) Amer 104 mL/min >60 [facility] Work Phone: [phone] Comment on above: GFR Calc Estimated GFR (MDRD) Non-Af Amer 86 mL/min >60 [facility] Work Phone: [phone] Comment on above: Non- GFR Calc Platelets bldon 04-05-2022 Platelets (Bld) [#/Vol] 444 10*3/uL 150-450 [facility] Work Phone: [phone] Serum or plasma calcium hussein urement (mass/volume)on 04-05-2022 Calcium [Mass/Vol] 9.2 mg/dL 8.5-10.1 [facility] Work Phone: [phone] Serum or plasma creatinine m easurement (mass/volume)on 04-05-2022 Creatinine [Mass/Vol] 0.83 mg/dL 0.55-1.02 [facility] Work Phone: [phone] Comment on above: The validity of the calculated GFR & GFRAA in patients over 70 years has not been determined. Clinical correlation is essential. Serum or plasma urea nitroge n measurement (mass/volume)on 04-05-2022 Urea nitrogen [Mass/Vol] 7 mg/dL 7-18 [facility] Work Phone: Thin prep Papanicolaou smear with manual screeningon 04-05-2022 Thin prep Papanicolaou smear with manual screening 11 5-15 [facility] Work Phone: XR CHEST 2V FRONTAL/LATon [facility] XR Chest PA and Lateralon IMPRESSION: Within normal limits. No acute radiographic abnormality. Manager Rfid: PSCB Transcribe Date/Time: Mar 23 2022 1:11P Dictated by : CINDY OBRIEN MD This examination was interpreted and the report reviewed and electronically signed by: CINDY OBRIEN MD on Mar 23 2022 1:14PM [facility] DIVISION OF RADIOLOGY * * *Final [...] tissues: Unremarkable. DIVISION OF RADIOLOGY Provider, [facility] - 03/23/2022 * * *Final Report* [...] Within normal limits. No acute radiographic abnormality. Manager Rfid: OLGA Transcribe Date/Time: Mar 23 2022 1:11P Dictated by : CINDY OBRIEN MD This examination was interpreted and the report reviewed and electronically signed by: CINDY OBRIEN MD on Mar 23 2022 1:14PM EST [facility] Radiology Study observation (narrative) [facility] XR Chest PA and LateralOrder ed By: Ccf Provider on 03-23-2022 [facility] Absolute lymphocyte counton 02-01-2022 Lymphocytes Auto (Unsp spec) [#/Vol] 3.62 10*3/uL 0.83-4.51 [facility] Work Phone: Basophil percentageon 2021 Basophil percentage 0-5 SEEN /hpf 0-5 [facility] Work Phone: Basophils/100 WBC (Bld) 0.3 % 0-[address] [facility] Work Phone: Bilirubin [Mass/Vol] 0.40 mg/dL 0.20-1.00 [facility] Work Phone: Comment on above: For patients on eltr ombopag therapy, use of Dimension [place] TBIL is not recommended. Chloride [Moles/Vol] 98 mmol/L 98-107 [facility] Work Phone: Eosinophils/100 WBC (Bld) 0.5 % 0-5 [facility] Work Phone: Glucose [Mass/Vol] 334 mg/dL 74-106 [facility] Work Phone: Comment on above: Glucose result great er than or equal to 200 mg/dLsuggests DIABETES MELLITUS per A.D.A. criteria. Lactate [Moles/Vol] 2.5 mmol/L 0.4-2.0 [facility] Work Phone: Comment on above: Critical Result(s) C alled at: 13:53:33 02/01/2022 by: Gayathri Whiting to [place]. Results read back by same. Neutrophils (Bld) [#/Vol] 5.5 10*3/uL 2.0-7.7 [facility] Work Phone: Neutrophils/100 WBC (Bld) 54.6 % 47-70 [facility] Work Phone: [phone] Potassium [Moles/Vol] 3.2 mmol/L 3.5-5.1 [facility] Work Phone: [phone] Protein [Mass/Vol] 7.2 g/dL 6.4-8.2 [facility] Work Phone: [phone] Sodium [Moles/Vol] 131 mmol/L 136-145 [facility] Work Phone: WBC (Bld) [#/Vol] 10.1 10*3/uL 4.4-11.0 [facility] Work Phone: Beta hCG serum qualon 2021 Beta HCG ( test) Ql Negative [facility] Work Phone: [phone] Bilirubin Test strip Ql (U)o n 02-01-2022 Bilirubin Ql (U) Negative Negative [facility] Work Phone: [phone] Blood erythrocytes count (nu mber/volume)on 02-01-2022 RBC (Bld) [#/Vol] 4.45 10*6/uL 4.2-5.4 [facility] Work Phone: Blood hemoglobin measurement (mass/volume)on 02-01-2022 Hemoglobin (Bld) [Mass/Vol] 11.7 g/dL 12.0-15.0 [facility] Work Phone: Blood lymphocytes/100 leukoc yteson 02-01-2022 Lymphocytes/100 WBC (Bld) 35.9 % 19-41 [facility] Work Phone: Blood monocytes/100 leukocyt eson 02-01-2022 Monocytes/100 WBC (Bld) 7.8 % 0-[address] [facility] Work Phone: Blood platelet mean volumeon 02-01-2022 Platelet mean volume (Bld) [Entitic vol] 9.7 fL 6.2-12.0 [facility] Work Phone: Determination of erythrocyte mean corpuscular volume (MCV)on 02-01-2022 MCV (RBC) [Entitic vol] 80.2 fL 81-[address] [facility] Work Phone: Hematocrit Auto (Bld) [Volum e fraction]on 02-01-2022 Hematocrit (Bld) [Volume fraction] 35.7 % 37-47 [facility] Work Phone: Ketones Test strip Ql (U)on 02-01-2022 Ketones Ql (U) Negative Negative [facility] Work Phone: Laboratory - Chemistry and C hemistry - challengeon 02-01-2022 ALP [Catalytic activity/Vol] 79 U/L 45-117 [facility] Work Phone: ALT [Catalytic activity/Vol] 12 U/L 13-56 [facility] Work Phone: CO2 [Moles/Vol] 24.0 mmol/L 21.0-32.0 [facility] Work Phone: Globulin (S) [Mass/Vol] 4.5 g/dL 2.2-4.[address] [facility] Work Phone: Lipase [Catalytic activity/Vol] 154 U/L 73-393 [facility] Work Phone: Urea nitrogen/Creatinine [Mass ratio] 6.9 mg/mg 10-20 [facility] Work Phone: Laboratory - Hematology and Cell countson 02-01-2022 Erythrocyte distribution width (RBC) [Entitic vol] 39.5 fL 35.1-43.9 [facility] Work Phone: Erythrocyte distribution width (RBC) [Ratio] 13.7 % 11.6-14.6 [facility] Work Phone: Immature granulocytes/100 WBC (Bld) 0.900 % 0.0-0.9 [facility] Work Phone: [phone] Comment on above: IG% - Immature Granu locytes (promyelocytes, myelocytes and metamyelocytes) > 1% indicates that a LEFT SHIFT is Present. MCH (RBC) [Entitic mass] 26.3 pg 27.0-32.0 [facility] Work Phone: [phone] Nucleated RBC/100 WBC (Bld) [Ratio] 0 % 0-5 [facility] Work Phone: [phone] MCHC Auto (RBC) [Mass/Vol]on 02-01-2022 MCHC (RBC) [Mass/Vol] 32.8 g/dL 32-36 [facility] Work Phone: [phone] Mucus LM Ql (Urine sed)on Mucus Ql (Urine sed) 0 SEEN /hpf [facility] Work Phone: [phone] Nitrite Test strip Ql (U)on 02-01-2022 Nitrite Ql (U) Negative Negative [facility] Work Phone: [phone] Panel Informationon 02-01 Estimated Creatinine Clearance Calc 75.50 ml/min [facility] Work Phone: [phone] Estimated GFR (MDRD) Amer 82 mL/min >60 [facility] Work Phone: [phone] Comment on above: GFR Calc Estimated GFR (MDRD) Non-Af Amer 68 mL/min >60 [facility] Work Phone: [phone] Comment on above: Non- GFR Calc Platelets bldon 02-01-2022 Platelets (Bld) [#/Vol] 368 10*3/uL 150-450 [facility] Work Phone: [phone] Protein Test strip Ql (U)on 02-01-2022 Protein Ql (U) 15 mg/dl Negative [facility] Work Phone: [phone] Serum or plasma albumin hussein urement (mass/volume)on 02-01-2022 Albumin [Mass/Vol] 2.7 g/dL 3.2-5.0 [facility] Work Phone: Serum or plasma albumin/glob ulin mass ratioon 02-01-2022 Albumin/Globulin [Mass ratio] 0.6 {ratio} 0.9-2.4 [facility] Work Phone: Serum or plasma calcium hussein urement (mass/volume)on 02-01-2022 Calcium [Mass/Vol] 8.7 mg/dL 8.5-10.1 [facility] Work Phone: Serum or plasma creatinine m easurement (mass/volume)on 02-01-2022 Creatinine [Mass/Vol] 1.02 mg/dL 0.55-1.02 [facility] Work Phone: Comment on above: The validity of the calculated GFR & GFRAA in patients over 70 years has not been determined. Clinical correlation is essential. Serum or plasma urea nitroge n measurement (mass/volume)on 02-01-2022 Urea nitrogen [Mass/Vol] 7 mg/dL 7-18 [facility] Work Phone: Squamous epithelial cells de tection in urine sediment by light microscopyon 02-01-2022 Epithelial cells.squamous LM Ql (Urine sed) 0-5 SEEN /hpf 5-10 [facility] Work Phone: Thin prep Papanicolaou smear with manual screeningon 02-01-2022 Thin prep Papanicolaou smear with manual screening 8 U/L 15-37 [facility] Work Phone: Thin prep Papanicolaou smear with manual screening 9 5-15 [facility] Work Phone: Urine blood detectionon 01-10 RBC Ql (U) 50 /ul Negative [facility] Work Phone: RBC Ql (U) 0-5 SEEN /hpf 0-5 [facility] Work Phone: Urine clarityon 02-01-2022 Clarity (U) Clear Clear [facility] Work Phone: [phone] Urine color determinationon 02-01-2022 Color (U) Yellow Yellow [facility] Work Phone: Urine glucose detectionon Glucose Ql (U) 1000 mg/dl Normal [facility] Work Phone: Urine leukocyte esterase det ection by dipstickon 02-01-2022 Leukocyte esterase Test strip Ql (U) 25 /ul Negative [facility] Work Phone: Urine pHon 02-01-2022 pH (U) 5.0 [pH] 5.0 - 8.0 [facility] Work Phone: Urine sediment bacteria coun t by microscopy (number/high power field)on 02-01-2022 Bacteria LM.HPF (Urine sed) [#/Area] 0 /[HPF] None Seen [facility] Work Phone: Urine specific gravity measu rementon 02-01-2022 Specific gravity (U) [Rel density] 1.020 1.002-1.030 [facility] Work Phone: Urobilinogen Auto test strip Ql (U)on 02-01-2022 Urobilinogen Ql (U) Normal mg/dl Normal [facility] Work Phone: Absolute lymphocyte counton 01-30-2022 Lymphocytes Auto (Unsp spec) [#/Vol] 5.16 10*3/uL 0.83-4.51 [facility] Work Phone: Albumin Elph [Mass/Vol]on Albumin [Mass/Vol] 3.6 g/dL 2.9-4.4 [facility] Work Phone: Atypical perinuclear antineu trophil cytoplasmic antibodies measurementon 01-30-2022 Neutrophil cytoplasmic Ab.perinuclear.atypical IF (S) [Titer] <1:20 titer Neg:<1:20 [facility] Work Phone: Comment on above: The atypical pANCA p attern has been observed in asignificant percentage of patients with ulcerative colitis,primary sclerosing cholangitis and autoimmune hepatitis.Performed at: [address] [place] [id number] Director: Wade Lazo PhD, Phone: [phone] at: [address] [id number] Director: Philip Robles MD, Phone: [phone] Basophil percentageon 2021 Amylase [Catalytic activity/Vol] 19 U/L 25-115 [facility] Work Phone: Basophil percentage < 0.2 AI 0.0-0.9 [facility] Work Phone: Basophils/100 WBC (Bld) 0.3 % 0-[address] [facility] Work Phone: Eosinophils/100 WBC (Bld) 0.5 % 0-5 [facility] Work Phone: Neutrophils (Bld) [#/Vol] 8.8 10*3/uL 2.0-7.7 [facility] Work Phone: Neutrophils/100 WBC (Bld) 57.5 % 47-70 [facility] Work Phone: WBC (Bld) [#/Vol] 15.3 10*3/uL 4.4-11.0 [facility] Work Phone: Blood erythrocytes count (nu mber/volume)on 01-30-2022 RBC (Bld) [#/Vol] 5.33 10*6/uL 4.2-5.4 [facility] Work Phone: Blood hemoglobin measurement (mass/volume)on 01-30-2022 Hemoglobin (Bld) [Mass/Vol] 13.9 g/dL 12.0-15.0 [facility] Work Phone: Blood lymphocytes/100 leukoc yteson 01-30-2022 Lymphocytes/100 WBC (Bld) 33.7 % 19-41 [facility] Work Phone: Blood manual differential co mment interpretation (narrative result)on 01-30-2022 Manual differential comment Franky (Bld) [Interp] SCANNED [facility] Work Phone: Comment on above: LYMPHOCYTOSIS NOTED Blood monocytes/100 leukocyt eson 01-30-2022 Monocytes/100 WBC (Bld) 7.2 % 0-[address] [facility] Work Phone: Blood platelet mean volumeon 01-30-2022 Platelet mean volume (Bld) [Entitic vol] 9.5 fL 6.2-12.0 [facility] Work Phone: Determination of erythrocyte mean corpuscular volume (MCV)on 01-30-2022 MCV (RBC) [Entitic vol] 80.3 fL 81-[address] [facility] Work Phone: Erythrocyte sedimentation ra abeba 01-30-2022 ESR (Bld) [Velocity] 81 mm/h 0-30 [facility] Work Phone: Hematocrit Auto (Bld) [Volum e fraction]on 01-30-2022 Hematocrit (Bld) [Volume fraction] 42.8 % 37-47 [facility] Work Phone: Interpretation of serum or p lasma protein pattern by immunofixation (narrative resulton 01-30-2022 Protein Fractions Immunofixation Franky [Interp] See comment [facility] Work Phone: Comment on above: NOT OBSERVED Laboratory - Chemistry and C hemistry - challengeon 01-30-2022 Cobalamin (Vitamin B12) [Mass/Vol] 318 pg/mL 211-911 [facility] Work Phone: Lipase [Catalytic activity/Vol] 150 U/L 73-393 [facility] Work Phone: Laboratory - Hematology and Cell countson 01-30-2022 Erythrocyte distribution width (RBC) [Entitic vol] 40.0 fL 35.1-43.9 [facility] Work Phone: [phone] Erythrocyte distribution width (RBC) [Ratio] 14.0 % 11.6-14.6 [facility] Work Phone: [phone] Immature granulocytes/100 WBC (Bld) 0.800 % 0.0-0.9 [facility] Work Phone: [phone] Comment on above: IG% - Immature Granu locytes (promyelocytes, myelocytes and metamyelocytes) > 1% indicates that a LEFT SHIFT is Present. MCH (RBC) [Entitic mass] 26.1 pg 27.0-32.0 [facility] Work Phone: [phone] Nucleated RBC/100 WBC (Bld) [Ratio] 0 % 0-5 [facility] Work Phone: [phone] MCHC Auto (RBC) [Mass/Vol]on 01-30-2022 MCHC (RBC) [Mass/Vol] 32.5 g/dL 32-36 [facility] Work Phone: [phone] No Panel Informationon 01-30 Addendum Document Comment . [facility] Work Phone: [phone] Comment on above: Protein electrophore sis scan will follow via computer,mail, or switchboard operator delivery. Centromere B Antibody <0.2 AI 0.0-0.9 [facility] Work Phone: [phone] Endomysial IgA Antibody Negative Negative [facility] Work Phone: [phone] Immunoglobulin E 119 IU/mL 6-495 [facility] Work Phone: [phone] [employer]GRICULT[employer] AIR[employer] PILOT Antibody <0.2 AI 0.0-0.9 [facility] Work Phone: [phone] Thyroid Stimulating Hormone (TSH) 2.21 uIU/mL 0.358-3.74 [facility] Work Phone: [phone] Platelets bldon 01-30-2022 Platelets (Bld) [#/Vol] 484 10*3/uL 150-450 [facility] Work Phone: [phone] Serum DNA double strand anti body assay (units/volume)on 01-30-2022 DNA double strand Ab Qn (S) [IU]/mL 0-9 [facility] Work Phone: [phone] Comment on above: Negative <5 Equivoca l 5 - 9 Positive >9 Serum Neva-1 antibody assay (u nits/volume)on 01-30-2022 Neva-1 extractable nuclear Ab Qn (S) <0.2 AI 0.0-0.9 [facility] Work Phone: Serum Scl-70 extractable nuc lear antibody assay (units/volume)on 01-30-2022 SCL-70 extractable nuclear Ab Qn (S) <0.2 AI 0.0-0.9 [facility] Work Phone: Serum Jang extractable nucl ear antibody detectionon 01-30-2022 Jang extractable nuclear Ab Ql (S) <0.2 AI 0.0-0.9 [facility] Work Phone: Serum orqnl-2-hllampnf measu rement by electrophoresison 01-30-2022 Alpha 1 globulin Elph [Mass/Vol] 0.2 g/dL 0.0-0.4 [facility] Work Phone: Alpha 1 globulin Elph [Mass/Vol] 1.6 g/dL 0.4-1.0 [facility] Work Phone: Serum classic neutrophil cyt oplasmic antibody assay (units/volume)on 01-30-2022 Neutrophil cytoplasmic Ab.classic Qn (S) 1:80 titer Neg:<1:20 [facility] Work Phone: Serum globulin measurement ( mass/volume)on 01-30-2022 Globulin (S) [Mass/Vol] 4.8 g/dL 2.2-3.[address] [facility] Work Phone: Serum or plasma C reactive p rotein measurement (mass/volume)on 01-30-2022 CRP [Mass/Vol] 53.10 mg/L 0.0-3.0 [facility] Work Phone: Comment on above: C-Reactive Protein ( CRP) provides useful information for thediagnosis, therapy and monitoring of inflammatory processesand associated diseases. For the evaluation of Relative Riskfor Cardiovascular Disease, a High Sensitivity CRP (HSCRP)should be ordered. Serum or plasma IgA measurem ent (mass/volume)on 01-30-2022 IgA [Mass/Vol] 478 mg/dL 87-352 [facility] Work Phone: Serum or plasma IgG measurem ent (mass/volume)on 01-30-2022 IgG [Mass/Vol] 1630 mg/dL [phone] [facility] Work Phone: [phone] Serum or plasma IgM measurem ent (mass/volume)on 01-30-2022 IgM [Mass/Vol] 294 mg/dL 26-217 [facility] Work Phone: Serum or plasma beta globuli n measurement by electrophoresis (mass/volume)on 01-30-2022 Beta globulin Elph [Mass/Vol] 1.0 g/dL 0.7-1.3 [facility] Work Phone: Serum or plasma folate measu rement (mass/volume)on 01-30-2022 Folate [Mass/Vol] 13.50 ng/mL 3.1-55.4 [facility] Work Phone: Serum or plasma gamma globul in measurement by electrophoresis (mass/volume)on 01-30-2022 Gamma globulin Elph [Mass/Vol] 1.9 g/dL 0.4-1.8 [facility] Work Phone: Serum or plasma immunoelectr ophoresis interpretation (nominal result)on 01-30-2022 Interpretation IEP [Interp] Comment . [facility] Work Phone: Comment on above: No monoclonality det ected. Serum perinuclear neutrophil cytoplasmic antibody titer by immunofluorescenceon 01-30-2022 Neutrophil cytoplasmic Ab.perinuclear IF (S) [Titer] <1:20 titer Neg:<1:20 [facility] Work Phone: Comment on above: The presence of posi tive fluorescence exhibiting P-ANCA orC-ANCA patterns alone is not specific for the diagnosis ofWegener's Granulomatosis (WG) or microscopic polyangiitis.Decisions about treatment should not be based solely onANCA IFA results. The [employer] Consensusrecommends follow up testing of positive sera with both NE-3 and MPO-ANCA enzyme immunoassays. As many as 5% serumsamples are positive only by EIA. Ref. AM J Clin [id number];111:[id number]. Serum tissue transglutaminas e IgA antibody assay (units/volume)on 01-30-2022 tTG IgA Qn (S) <2 U/mL 0-3 [facility] Work Phone: [phone] Comment on above: Negative 0 - 3 Weak Positive 4 - 10 Positive >10 Tissue Transglutaminase (tTG) has been identified as the endomysial antigen. Studies have demonstr- ated that endomysial IgA antibodies have over 99% specificity for gluten sensitive enteropathy. Thin prep Papanicolaou smear with manual screeningon 01-30-2022 Thin prep Papanicolaou smear with manual screening 153 U/L 84-246 [facility] Work Phone: [phone] Thin prep Papanicolaou smear with manual screening 0.8 0.7-1.7 [facility] Work Phone: [phone] Total protein bloodon 2021 Protein [Mass/Vol] 8.4 g/dL 6.0-8.5 [facility] Work Phone: [phone] Whole blood hemoglobin A1c/t otal hemoglobin ratio (mass fraction)on 01-30-2022 HbA1c (Bld) [Mass fraction] 11.4 % 3.8-5.6 [facility] Work Phone: [phone] Comment on above: Normal < 5.7 % Predi abetic 5.7 - 6.4 % Diabetic >or= 6.5 % Please note range changes. Absolute lymphocyte counton 01-26-2022 Lymphocytes Auto (Unsp spec) [#/Vol] 4.70 10*3/uL 0.83-4.51 [facility] Work Phone: [phone] Basophil percentageon 2021 Basophils/100 WBC (Bld) 0.4 % 0-[address] [facility] Work Phone: [phone] Bilirubin [Mass/Vol] 0.40 mg/dL 0.20-1.00 [facility] Work Phone: [phone] Comment on above: For patients on eltr ombopag therapy, use of Dimension [place] TBIL is not recommended. Chloride [Moles/Vol] 101 mmol/L 98-107 [facility] Work Phone: Eosinophils/100 WBC (Bld) 0.2 % 0-5 [facility] Work Phone: Glucose [Mass/Vol] 320 mg/dL 74-106 [facility] Work Phone: Comment on above: Glucose result great er than or equal to 200 mg/dLsuggests DIABETES MELLITUS per A.D.A. criteria. Neutrophils (Bld) [#/Vol] 5.6 10*3/uL 2.0-7.7 [facility] Work Phone: Neutrophils/100 WBC (Bld) 50.6 % 47-70 [facility] Work Phone: Potassium [Moles/Vol] 3.6 mmol/L 3.5-5.1 [facility] Work Phone: Protein [Mass/Vol] 8.5 g/dL 6.4-8.2 [facility] Work Phone: Sodium [Moles/Vol] 136 mmol/L 136-145 [facility] Work Phone: WBC (Bld) [#/Vol] 11.1 10*3/uL 4.4-11.0 [facility] Work Phone: Blood erythrocytes count (nu mber/volume)on 01-26-2022 RBC (Bld) [#/Vol] 4.99 10*6/uL 4.2-5.4 [facility] Work Phone: Blood hemoglobin measurement (mass/volume)on 01-26-2022 Hemoglobin (Bld) [Mass/Vol] 12.9 g/dL 12.0-15.0 [facility] Work Phone: Blood lymphocytes/100 leukoc yteson 01-26-2022 Lymphocytes/100 WBC (Bld) 42.2 % 19-41 [facility] Work Phone: Blood monocytes/100 leukocyt eson 01-26-2022 Monocytes/100 WBC (Bld) 5.9 % 0-[address] [facility] Work Phone: Blood platelet mean volumeon 01-26-2022 Platelet mean volume (Bld) [Entitic vol] 9.5 fL 6.2-12.0 [facility] Work Phone: Determination of erythrocyte mean corpuscular volume (MCV)on 01-26-2022 MCV (RBC) [Entitic vol] 77.8 fL 81-[address] [facility] Work Phone: Hematocrit Auto (Bld) [Volum e fraction]on 01-26-2022 Hematocrit (Bld) [Volume fraction] 38.8 % 37-47 [facility] Work Phone: Laboratory - Chemistry and C hemistry - challengeon 01-26-2022 ALP [Catalytic activity/Vol] 85 U/L 45-117 [facility] Work Phone: ALT [Catalytic activity/Vol] 14 U/L 13-56 [facility] Work Phone: [phone] CO2 [Moles/Vol] 26.0 mmol/L 21.0-32.0 [facility] Work Phone: [phone] Globulin (S) [Mass/Vol] 5.3 g/dL 2.2-4.[address] [facility] Work Phone: [phone] Lipase [Catalytic activity/Vol] 179 U/L 73-393 [facility] Work Phone: [phone] Urea nitrogen/Creatinine [Mass ratio] 13.1 mg/mg 10-20 [facility] Work Phone: Laboratory - Hematology and Cell countson 01-26-2022 Erythrocyte distribution width (RBC) [Entitic vol] 37.9 fL 35.1-43.9 [facility] Work Phone: [phone] Erythrocyte distribution width (RBC) [Ratio] 13.8 % 11.6-14.6 [facility] Work Phone: [phone] Immature granulocytes/100 WBC (Bld) 0.700 % 0.0-0.9 [facility] Work Phone: Comment on above: IG% - Immature Granu locytes (promyelocytes, myelocytes and metamyelocytes) > 1% indicates that a LEFT SHIFT is Present. MCH (RBC) [Entitic mass] 25.9 pg 27.0-32.0 [facility] Work Phone: [phone] Nucleated RBC/100 WBC (Bld) [Ratio] 0 % 0-5 [facility] Work Phone: [phone] MCHC Auto (RBC) [Mass/Vol]on 01-26-2022 MCHC (RBC) [Mass/Vol] 33.2 g/dL 32-36 [facility] Work Phone: [phone] Panel Informationon 01-26 Estimated Creatinine Clearance Calc 84.46 ml/min [facility] Work Phone: [phone] Estimated GFR (MDRD) Amer 92 mL/min >60 [facility] Work Phone: [phone] Comment on above: GFR Calc Estimated GFR (MDRD) Non-Af Amer 76 mL/min >60 [facility] Work Phone: [phone] Comment on above: Non- GFR Calc Platelets bldon 01-26-2022 Platelets (Bld) [#/Vol] 474 10*3/uL 150-450 [facility] Work Phone: [phone] Serum or plasma albumin hussein urement (mass/volume)on 01-26-2022 Albumin [Mass/Vol] 3.2 g/dL 3.2-5.0 [facility] Work Phone: [phone] Serum or plasma albumin/glob ulin mass ratioon 01-26-2022 Albumin/Globulin [Mass ratio] 0.6 {ratio} 0.9-2.4 [facility] Work Phone: [phone] Serum or plasma calcium hussein urement (mass/volume)on 01-26-2022 Calcium [Mass/Vol] 9.3 mg/dL 8.5-10.1 [facility] Work Phone: [phone] Serum or plasma creatinine m easurement (mass/volume)on 01-26-2022 Creatinine [Mass/Vol] 0.92 mg/dL 0.55-1.02 [facility] Work Phone: Comment on above: The validity of the calculated GFR & GFRAA in patients over 70 years has not been determined. Clinical correlation is essential. Serum or plasma urea nitroge n measurement (mass/volume)on 01-26-2022 Urea nitrogen [Mass/Vol] 12 mg/dL 7-18 [facility] Work Phone: Thin prep Papanicolaou smear with manual screeningon 01-26-2022 Thin prep Papanicolaou smear with manual screening 7 U/L 15-37 [facility] Work Phone: Thin prep Papanicolaou smear with manual screening 9 5-15 [facility] Work Phone: Absolute lymphocyte counton 01-23-2022 Lymphocytes Auto (Unsp spec) [#/Vol] 3.74 10*3/uL 0.83-4.51 [facility] Work Phone: Basophil percentageon 2021 Basophils/100 WBC (Bld) 0.4 % 0-[address] [facility] Work Phone: Chloride [Moles/Vol] 97 mmol/L 98-107 [facility] Work Phone: Eosinophils/100 WBC (Bld) 0.4 % 0-5 [facility] Work Phone: Glucose [Mass/Vol] 362 mg/dL 74-106 [facility] Work Phone: Comment on above: Glucose result great er than or equal to 200 mg/dLsuggests DIABETES MELLITUS per A.D.A. criteria. Neutrophils (Bld) [#/Vol] 5.3 10*3/uL 2.0-7.7 [facility] Work Phone: Neutrophils/100 WBC (Bld) 53.8 % 47-70 [facility] Work Phone: Potassium [Moles/Vol] 4.0 mmol/L 3.5-5.1 [facility] Work Phone: Sodium [Moles/Vol] 131 mmol/L 136-145 [facility] Work Phone: WBC (Bld) [#/Vol] 9.8 10*3/uL 4.4-11.0 [facility] Work Phone: Blood erythrocytes count (nu mber/volume)on 01-23-2022 RBC (Bld) [#/Vol] 5.18 10*6/uL 4.2-5.4 [facility] Work Phone: Blood hemoglobin measurement (mass/volume)on 01-23-2022 Hemoglobin (Bld) [Mass/Vol] 13.4 g/dL 12.0-15.0 [facility] Work Phone: Blood lymphocytes/100 leukoc yteson 01-23-2022 Lymphocytes/100 WBC (Bld) 38.3 % 19-41 [facility] Work Phone: [phone] Blood monocytes/100 leukocyt eson 01-23-2022 Monocytes/100 WBC (Bld) 6.3 % 0-[address] [facility] Work Phone: Blood platelet mean volumeon 01-23-2022 Platelet mean volume (Bld) [Entitic vol] 9.2 fL 6.2-12.0 [facility] Work Phone: Determination of erythrocyte mean corpuscular volume (MCV)on 01-23-2022 MCV (RBC) [Entitic vol] 78.2 fL 81-[address] [facility] Work Phone: Hematocrit Auto (Bld) [Volum e fraction]on 01-23-2022 Hematocrit (Bld) [Volume fraction] 40.5 % 37-47 [facility] Work Phone: Laboratory - Chemistry and C hemistry - challengeon 01-23-2022 CO2 [Moles/Vol] 24.0 mmol/L 21.0-32.0 [facility] Work Phone: Urea nitrogen/Creatinine [Mass ratio] 17.3 mg/mg 10-20 [facility] Work Phone: [phone] Laboratory - Hematology and Cell countson 01-23-2022 Erythrocyte distribution width (RBC) [Entitic vol] 38.2 fL 35.1-43.9 [facility] Work Phone: [phone] Erythrocyte distribution width (RBC) [Ratio] 13.5 % 11.6-14.6 [facility] Work Phone: [phone] Immature granulocytes/100 WBC (Bld) 0.800 % 0.0-0.9 [facility] Work Phone: [phone] Comment on above: IG% - Immature Granu locytes (promyelocytes, myelocytes and metamyelocytes) > 1% indicates that a LEFT SHIFT is Present. MCH (RBC) [Entitic mass] 25.9 pg 27.0-32.0 [facility] Work Phone: [phone] Nucleated RBC/100 WBC (Bld) [Ratio] 0 % 0-5 [facility] Work Phone: [phone] MCHC Auto (RBC) [Mass/Vol]on 01-23-2022 MCHC (RBC) [Mass/Vol] 33.1 g/dL 32-36 [facility] Work Phone: No Panel Informationon 01-23 Estimated Creatinine Clearance Calc 79.29 ml/min [facility] Work Phone: [phone] Estimated GFR (MDRD) Amer 85 mL/min >60 [facility] Work Phone: [phone] Comment on above: GFR Calc Estimated GFR (MDRD) Non-Af Amer 70 mL/min >60 [facility] Work Phone: [phone] Comment on above: Non- GFR Calc Platelets bldon 01-23-2022 Platelets (Bld) [#/Vol] 470 10*3/uL 150-450 [facility] Work Phone: [phone] Serum or plasma calcium hussein urement (mass/volume)on 01-23-2022 Calcium [Mass/Vol] 9.6 mg/dL 8.5-10.1 [facility] Work Phone: [phone] Serum or plasma creatinine m easurement (mass/volume)on 01-23-2022 Creatinine [Mass/Vol] 0.98 mg/dL 0.55-1.02 [facility] Work Phone: Comment on above: The validity of the calculated GFR & GFRAA in patients over 70 years has not been determined. Clinical correlation is essential. Serum or plasma urea nitroge n measurement (mass/volume)on 01-23-2022 Urea nitrogen [Mass/Vol] 17 mg/dL 7-18 [facility] Work Phone: Thin prep Papanicolaou smear with manual screeningon 01-23-2022 Thin prep Papanicolaou smear with manual screening 10 5-15 [facility] Work Phone: Glucose Glucometer (BldC) [M ass/Vol]on 01-22-2022 Glucose [Mass/Vol] 320 mg/dL 74-106 [facility] Work Phone: Comment on above: MANAGEMENT OF PATIEN T CARE PER NURSING PROTOCOL Glucose Glucometer (BldC) [M ass/Vol]on 01-16-2022 Glucose [Mass/Vol] 440 mg/dL 74-106 [facility] Work Phone: Comment on above: MANAGEMENT OF PATIEN T CARE PER NURSING PROTOCOL Absolute lymphocyte counton 11-16-2021 Lymphocytes Auto (Unsp spec) [#/Vol] 2.57 10*3/uL 0.83-4.51 [facility] Work Phone: Basophil percentageon 2021 Basophils/100 WBC (Bld) 0.4 % 0-1 [facility] Work Phone: Bilirubin [Mass/Vol] 0.50 mg/dL 0.20-1.00 [facility] Work Phone: Comment on above: For patients on eltr ombopag therapy, use of Dimension [place] TBIL is not recommended. Chloride [Moles/Vol] 99 mmol/L 98-107 [facility] Work Phone: Eosinophils/100 WBC (Bld) 0.6 % 0-5 [facility] Work Phone: Glucose [Mass/Vol] 331 mg/dL 74-106 [facility] Work Phone: Comment on above: Glucose result great er than or equal to 200 mg/dLsuggests DIABETES MELLITUS per A.D.A. criteria. Neutrophils (Bld) [#/Vol] 7.4 10*3/uL 2.0-7.7 [facility] Work Phone: Neutrophils/100 WBC (Bld) 68.0 % 47-70 [facility] Work Phone: Potassium [Moles/Vol] 4.1 mmol/L 3.5-5.1 [facility] Work Phone: Protein [Mass/Vol] 8.7 g/dL 6.4-8.2 [facility] Work Phone: Sodium [Moles/Vol] 133 mmol/L 136-145 [facility] Work Phone: WBC (Bld) [#/Vol] 10.9 10*3/uL 4.4-11.0 [facility] Work Phone: Blood erythrocytes count (nu mber/volume)on 11-16-2021 RBC (Bld) [#/Vol] 4.48 10*6/uL 4.2-5.4 [facility] Work Phone: Blood hemoglobin measurement (mass/volume)on 11-16-2021 Hemoglobin (Bld) [Mass/Vol] 11.9 g/dL 12.0-15.0 [facility] Work Phone: Blood lymphocytes/100 leukoc yteson 11-16-2021 Lymphocytes/100 WBC (Bld) 23.5 % 19-41 [facility] Work Phone: Blood monocytes/100 leukocyt eson 11-16-2021 Monocytes/100 WBC (Bld) 6.7 % 0-[address] [facility] Work Phone: Blood platelet mean volumeon 11-16-2021 Platelet mean volume (Bld) [Entitic vol] 9.2 fL 6.2-12.0 [facility] Work Phone: [phone] Determination of erythrocyte mean corpuscular volume (MCV)on 11-16-2021 MCV (RBC) [Entitic vol] 81.9 fL 81-[address] [facility] Work Phone: [phone] Hematocrit Auto (Bld) [Volum e fraction]on 11-16-2021 Hematocrit (Bld) [Volume fraction] 36.7 % 37-47 [facility] Work Phone: [phone] Laboratory - Chemistry and C hemistry - challengeon 11-16-2021 ALP [Catalytic activity/Vol] 130 U/L 45-117 [facility] Work Phone: [phone] ALT [Catalytic activity/Vol] 12 U/L 13-56 [facility] Work Phone: [phone] CO2 [Moles/Vol] 27.0 mmol/L 21.0-32.0 [facility] Work Phone: [phone] Globulin (S) [Mass/Vol] 6.0 g/dL 2.2-4.[address] [facility] Work Phone: [phone] Urea nitrogen/Creatinine [Mass ratio] 10.7 mg/mg 10-20 [facility] Work Phone: [phone] Laboratory - Hematology and Cell countson 11-16-2021 Erythrocyte distribution width (RBC) [Entitic vol] 38.0 fL 35.1-43.9 [facility] Work Phone: [phone] Erythrocyte distribution width (RBC) [Ratio] 12.7 % 11.6-14.6 [facility] Work Phone: [phone] Immature granulocytes/100 WBC (Bld) 0.800 % 0.0-0.9 [facility] Work Phone: [phone] Comment on above: IG% - Immature Granu locytes (promyelocytes, myelocytes and metamyelocytes) > 1% indicates that a LEFT SHIFT is Present. MCH (RBC) [Entitic mass] 26.6 pg 27.0-32.0 [facility] Work Phone: [phone] Nucleated RBC/100 WBC (Bld) [Ratio] 0 % 0-5 [facility] Work Phone: MCHC Auto (RBC) [Mass/Vol]on 11-16-2021 MCHC (RBC) [Mass/Vol] 32.4 g/dL 32-36 [facility] Work Phone: No Panel Informationon 11-16 Estimated Creatinine Clearance Calc 103.61 ml/min [facility] Work Phone: [phone] Estimated GFR (MDRD) Amer 117 mL/min >60 [facility] Work Phone: [phone] Comment on above: GFR Calc Estimated GFR (MDRD) Non-Af Amer 96 mL/min >60 [facility] Work Phone: Comment on above: Non- GFR Calc Platelets bldon 11-16-2021 Platelets (Bld) [#/Vol] 471 10*3/uL 150-450 [facility] Work Phone: [phone] Serum or plasma albumin hussein urement (mass/volume)on 11-16-2021 Albumin [Mass/Vol] 2.7 g/dL 3.2-5.0 [facility] Work Phone: Serum or plasma albumin/glob ulin mass ratioon 11-16-2021 Albumin/Globulin [Mass ratio] 0.4 {ratio} 0.9-2.4 [facility] Work Phone: Serum or plasma calcium hussein urement (mass/volume)on 11-16-2021 Calcium [Mass/Vol] 8.9 mg/dL 8.5-10.1 [facility] Work Phone: [phone] Serum or plasma creatinine m easurement (mass/volume)on 11-16-2021 Creatinine [Mass/Vol] 0.75 mg/dL 0.55-1.02 [facility] Work Phone: Comment on above: The validity of the calculated GFR & GFRAA in patients over 70 years has not been determined. Clinical correlation is essential. Serum or plasma urea nitroge n measurement (mass/volume)on 11-16-2021 Urea nitrogen [Mass/Vol] 8 mg/dL 7-18 [facility] Work Phone: Thin prep Papanicolaou smear with manual screeningon 11-16-2021 Thin prep Papanicolaou smear with manual screening 6 U/L 15-37 [facility] Work Phone: Thin prep Papanicolaou smear with manual screening 7 5-15 [facility] Work Phone: Absolute lymphocyte counton 10-29-2021 Lymphocytes Auto (Unsp spec) [#/Vol] 2.98 10*3/uL 0.83-4.51 [facility] Work Phone: Basophil percentageon 2021 Basophils/100 WBC (Bld) 0.5 % 0-[address] [facility] Work Phone: Bilirubin [Mass/Vol] 0.30 mg/dL 0.20-1.00 [facility] Work Phone: Comment on above: For patients on eltr ombopag therapy, use of Dimension [place] TBIL is not recommended. Chloride [Moles/Vol] 99 mmol/L 98-107 [facility] Work Phone: Eosinophils/100 WBC (Bld) 0.2 % 0-5 [facility] Work Phone: Glucose [Mass/Vol] 387 mg/dL 74-106 [facility] Work Phone: Comment on above: Glucose result great er than or equal to 200 mg/dLsuggests DIABETES MELLITUS per A.D.A. criteria. Neutrophils (Bld) [#/Vol] 9.2 10*3/uL 2.0-7.7 [facility] Work Phone: Neutrophils/100 WBC (Bld) 70.3 % 47-70 [facility] Work Phone: Potassium [Moles/Vol] 4.4 mmol/L 3.5-5.1 [facility] Work Phone: Protein [Mass/Vol] 9.0 g/dL 6.4-8.2 [facility] Work Phone: [phone] Sodium [Moles/Vol] 130 mmol/L 136-[address] [facility]: [phone] WBC (Bld) [#/Vol] 13.0 10*3/uL 4.4-11.0 [facility] Work Phone: [phone] Blood erythrocytes count (nu mber/volume)on 10-29-2021 RBC (Bld) [#/Vol] 4.95 10*6/uL 4.2-5.4 [facility] Work Phone: [phone] Blood hemoglobin measurement (mass/volume)on 10-29-2021 Hemoglobin (Bld) [Mass/Vol] 13.3 g/dL 12.0-15.0 [facility] Work Phone: [phone] Blood lymphocytes/100 leukoc yteson 10-29-2021 Lymphocytes/100 WBC (Bld) 22.9 % 19-41 [facility] Work Phone: [phone] Blood monocytes/100 leukocyt eson 10-29-2021 Monocytes/100 WBC (Bld) 5.3 % 0-[address] [facility] Work Phone: [phone] Blood platelet mean volumeon 10-29-2021 Platelet mean volume (Bld) [Entitic vol] 9.0 fL 6.2-12.0 [facility] Work Phone: [phone] Determination of erythrocyte mean corpuscular volume (MCV)on 10-29-2021 MCV (RBC) [Entitic vol] 80.0 fL 81-[address] [facility] Work Phone: [phone] Hematocrit Auto (Bld) [Volum e fraction]on 10-29-2021 Hematocrit (Bld) [Volume fraction] 39.6 % 37-47 [facility] Work Phone: [phone] Laboratory - Chemistry and C hemistry - challengeon 10-29-2021 ALP [Catalytic activity/Vol] 156 U/L 45-117 [facility] Work Phone: [phone] ALT [Catalytic activity/Vol] 23 U/L 13-56 [facility] Work Phone: [phone] CO2 [Moles/Vol] 25.0 mmol/L 21.0-32.0 [facility] Work Phone: [phone] Globulin (S) [Mass/Vol] 5.9 g/dL 2.2-4.[address] [facility] Work Phone: [phone] Urea nitrogen/Creatinine [Mass ratio] 13.8 mg/mg 10-20 [facility] Work Phone: [phone] Laboratory - Hematology and Cell countson 10-29-2021 Erythrocyte distribution width (RBC) [Entitic vol] 37.2 fL 35.1-43.9 [facility] Work Phone: [phone] Erythrocyte distribution width (RBC) [Ratio] 13.1 % 11.6-14.6 [facility] Work Phone: [phone] Immature granulocytes/100 WBC (Bld) 0.800 % 0.0-0.9 [facility] Work Phone: [phone] Comment on above: IG% - Immature Granu locytes (promyelocytes, myelocytes and metamyelocytes) > 1% indicates that a LEFT SHIFT is Present. MCH (RBC) [Entitic mass] 26.9 pg 27.0-32.0 [facility] Work Phone: [phone] Nucleated RBC/100 WBC (Bld) [Ratio] 0 % 0-5 [facility] Work Phone: [phone] MCHC Auto (RBC) [Mass/Vol]on 10-29-2021 MCHC (RBC) [Mass/Vol] 33.6 g/dL 32-36 [facility]: [phone] Panel Informationon 10-29 Estimated Creatinine Clearance Calc 89.32 ml/min [facility] Work Phone: [phone] Estimated GFR (MDRD) Amer 99 mL/min >60 [facility] Work Phone: [phone] Comment on above: GFR Calc Estimated GFR (MDRD) Non-Af Amer 82 mL/min >60 [facility] Work Phone: [phone] Comment on above: Non- GFR Calc Platelets bldon 10-29-2021 Platelets (Bld) [#/Vol] 460 10*3/uL 150-450 [facility] Work Phone: Serum or plasma albumin hussein urement (mass/volume)on 10-29-2021 Albumin [Mass/Vol] 3.1 g/dL 3.2-5.0 [facility] Work Phone: Serum or plasma albumin/glob ulin mass ratioon 10-29-2021 Albumin/Globulin [Mass ratio] 0.5 {ratio} 0.9-2.4 [facility] Work Phone: Serum or plasma calcium hussein urement (mass/volume)on 10-29-2021 Calcium [Mass/Vol] 9.0 mg/dL 8.5-10.1 [facility] Work Phone: Serum or plasma choriogonado tropin detectionon 10-29-2021 HCG ( test) Ql < 1 mIU/mL <[address] [facility] Work Phone: Comment on above: hCG levels with Gest ational AgeGestational Age hCG mIU/mL (IU/L)0.2 - 1 week 5 - 501-2 weeks 50 - 5002-3 weeks 100 - 97329-9 weeks 500 - 553046-1 weeks 1000 - 430315-7 weeks 45179 - 100,0006-8 weeks 52963 - 200,0002-3 months 23289 - 100,000 Serum or plasma creatinine m easurement (mass/volume)on 10-29-2021 Creatinine [Mass/Vol] 0.87 mg/dL 0.55-1.02 [facility] Work Phone: Comment on above: The validity of the calculated GFR & GFRAA in patients over 70 years has not been determined. Clinical correlation is essential. Serum or plasma urea nitroge n measurement (mass/volume)on 10-29-2021 Urea nitrogen [Mass/Vol] 12 mg/dL 7-18 [facility] Work Phone: Thin prep Papanicolaou smear with manual screeningon 10-29-2021 Thin prep Papanicolaou smear with manual screening 13 U/L 15-37 [facility] Work Phone: Thin prep Papanicolaou smear with manual screening 6 5-15 [facility] Work Phone: Absolute lymphocyte counton 08-10-2021 Lymphocytes Auto (Unsp spec) [#/Vol] 0.86 10*3/uL 0.83-4.51 [facility] Work Phone: Basophil percentageon 2021 Basophil percentage 5-10 SEEN /hpf [facility] Work Phone: Basophils/100 WBC (Bld) 0.2 % 0-[address] [facility] Work Phone: Chloride [Moles/Vol] 100 mmol/L 98-107 [facility] Work Phone: Eosinophils/100 WBC (Bld) 0.3 % 0-5 [facility] Work Phone: Glucose [Mass/Vol] 406 mg/dL 74-106 [facility] Work Phone: Comment on above: Glucose result great er than or equal to 200 mg/dLsuggests DIABETES MELLITUS per A.D.A. criteria. Neutrophils (Bld) [#/Vol] 12.4 10*3/uL 2.0-7.7 [facility] Work Phone: Neutrophils/100 WBC (Bld) 89.0 % 47-70 [facility] Work Phone: Potassium [Moles/Vol] 4.2 mmol/L 3.5-5.1 [facility] Work Phone: Sodium [Moles/Vol] 134 mmol/L 136-145 [facility] Work Phone: WBC (Bld) [#/Vol] 14.0 10*3/uL 4.4-11.0 [facility] Work Phone: Beta hCG serum qualon 2021 Beta HCG ( test) Ql Negative [facility] Work Phone: Bilirubin Test strip Ql (U)o n 08-10-2021 Bilirubin Ql (U) Negative Negative [facility] Work Phone: Blood erythrocytes count (nu mber/volume)on 08-10-2021 RBC (Bld) [#/Vol] 5.34 10*6/uL 4.2-5.4 [facility] Work Phone: Blood hemoglobin measurement (mass/volume)on 08-10-2021 Hemoglobin (Bld) [Mass/Vol] 14.7 g/dL 12.0-15.0 [facility] Work Phone: Blood lymphocytes/100 leukoc yteson 08-10-2021 Lymphocytes/100 WBC (Bld) 6.1 % 19-41 [facility] Work Phone: Blood monocytes/100 leukocyt eson 08-10-2021 Monocytes/100 WBC (Bld) 4.0 % 0-[address] [facility] Work Phone: [phone] Blood platelet mean volumeon 08-10-2021 Platelet mean volume (Bld) [Entitic vol] 9.6 fL 6.2-12.0 [facility] Work Phone: Determination of erythrocyte mean corpuscular volume (MCV)on 08-10-2021 MCV (RBC) [Entitic vol] 82.4 fL 81-99 [facility] [facility] Work Phone: Glucose Glucometer (BldC) [M ass/Vol]on 08-10-2021 Glucose [Mass/Vol] 377 mg/dL 70-110 [facility] Work Phone: Comment on above: MANAGEMENT OF PATIEN T CARE PER NURSING PROTOCOL Hematocrit Auto (Bld) [Volum e fraction]on 08-10-2021 Hematocrit (Bld) [Volume fraction] 44.0 % 37-47 [facility] Work Phone: [phone] Ketones Test strip Ql (U)on 08-10-2021 Ketones Ql (U) 150 mg/dl Negative [facility] Work Phone: Comment on above: CRITICAL VALUE *HCRI TICAL VALUE VERIFIED. CALLED TO Rafa PERAZA RN (ED)08/10/21 [id number] [address] Rebolledo.RESULTS READ BACK BY SAME . Laboratory - Chemistry and C hemistry - challengeon 08-10-2021 CO2 [Moles/Vol] 23.0 mmol/L 21.0-32.0 [facility] Work Phone: [phone] Urea nitrogen/Creatinine [Mass ratio] 18.6 mg/mg 10-20 [facility] Work Phone: [phone] Laboratory - Hematology and Cell countson 08-10-2021 Erythrocyte distribution width (RBC) [Entitic vol] 39.0 fL 35.1-43.9 [facility] Work Phone: [phone] Erythrocyte distribution width (RBC) [Ratio] 13.1 % 11.6-14.6 [facility] Work Phone: [phone] Immature granulocytes/100 WBC (Bld) 0.400 % 0.0-0.9 [facility] Work Phone: [phone] Comment on above: IG% - Immature Granu locytes (promyelocytes, myelocytes and metamyelocytes) > 1% indicates that a LEFT SHIFT is Present. MCH (RBC) [Entitic mass] 27.5 pg 27.0-32.0 [facility] Work Phone: [phone] Nucleated RBC/100 WBC (Bld) [Ratio] 0 % 0-5 [facility] Work Phone: [phone] MCHC Auto (RBC) [Mass/Vol]on 08-10-2021 MCHC (RBC) [Mass/Vol] 33.4 g/dL 32-36 [facility] Work Phone: [phone] Mucus LM Ql (Urine sed)on Mucus Ql (Urine sed) 0 SEEN /hpf [facility] Work Phone: [phone] Nitrite Test strip Ql (U)on 08-10-2021 Nitrite Ql (U) Negative Negative [facility] Work Phone: [phone] No Panel Informationon 08-10 Estimated Creatinine Clearance Calc 90.36 ml/min [facility] Work Phone: [phone] Estimated GFR (MDRD) Amer 100 mL/min >60 [facility] Work Phone: Comment on above: GFR Calc Estimated GFR (MDRD) Non-Af Amer 83 mL/min >60 [facility] Work Phone: Comment on above: Non- GFR Calc Platelets bldon 08-10-2021 Platelets (Bld) [#/Vol] 343 10*3/uL 150-450 [facility] Work Phone: Protein Test strip Ql (U)on 08-10-2021 Protein Ql (U) 30 mg/dl Negative [facility] Work Phone: Serum or plasma calcium hussein urement (mass/volume)on 08-10-2021 Calcium [Mass/Vol] 8.8 mg/dL 8.5-10.1 [facility] Work Phone: Serum or plasma creatinine m easurement (mass/volume)on 08-10-2021 Creatinine [Mass/Vol] 0.86 mg/dL 0.55-1.02 [facility] Work Phone: Comment on above: The validity of the calculated GFR & GFRAA in patients over 70 years has not been determined. Clinical correlation is essential. Serum or plasma urea nitroge n measurement (mass/volume)on 08-10-2021 Urea nitrogen [Mass/Vol] 16 mg/dL 7-18 [facility] Work Phone: Squamous epithelial cells de tection in urine sediment by light microscopyon 08-10-2021 Epithelial cells.squamous LM Ql (Urine sed) 0-5 SEEN /hpf [facility] Work Phone: Thin prep Papanicolaou smear with manual screeningon 08-10-2021 Thin prep Papanicolaou smear with manual screening 11 5-15 [facility] Work Phone: [phone] Urine blood detectionon 07-14 RBC Ql (U) 250 /ul Negative [facility] Work Phone: [phone] RBC Ql (U) > 100 SEEN /hpf [facility] Work Phone: [phone] Urine clarityon 08-10-2021 Clarity (U) Cloudy Clear [facility] Work Phone: Urine color determinationon 08-10-2021 Color (U) Yellow Yellow [facility] Work Phone: Urine glucose detectionon Glucose Ql (U) 1000 mg/dl Normal [facility] Work Phone: Urine leukocyte esterase det ection by dipstickon 08-10-2021 Leukocyte esterase Test strip Ql (U) 25 /ul Negative [facility] Work Phone: Urine pHon 08-10-2021 pH (U) 7.0 [pH] [facility] Work Phone: Urine sediment bacteria coun t by microscopy (number/high power field)on 08-10-2021 Bacteria LM.HPF (Urine sed) [#/Area] 1 /[HPF] None Seen [facility] Work Phone: Urine specific gravity measu rementon 08-10-2021 Specific gravity (U) [Rel density] 1.005 [facility] Work Phone: Urobilinogen Auto test strip Ql (U)on 08-10-2021 Urobilinogen Ql (U) 1 mg/dl Normal [facility] Work Phone: XR Chest PA and Lateralon IMPRESSION: No acute radiographic abnormality. Manager Rfid: PSCB Transcribe Date/Time: May 15 2021 10:07A Dictated by : ELISEO LYON MD This examination was interpreted and the report reviewed and electronically signed by: ELISEO LYON MD on May 15 2021 10:08AM [facility] DIVISION OF RADIOLOGY * * *Final [...] Unremarkable. DIVISION OF RADIOLOGY Provider, Susana enamorado [place] - 05/15/2021 * * *Final Report* * [...] Unremarkable. IMPRESSION IMPRESSION: No acute radiographic abnormality. Manager Rfid: PSCB Transcribe Date/Time: May 15 2021 10:07A Dictated by : ELISEO LYON MD This examination was interpreted and the report reviewed and electronically signed by: ELISEO LYON MD on May 15 2021 10:08AM EST [facility] Radiology Study observation (narrative) [facility] XR Chest PA and LateralOrder ed By: [facility] Provider on 05-15-2021 [facility] Anaerobic culture Bacteria identified Anaer cx Nom (Unsp spec) No anaerobic bacteria isolated. [facility] Work Phone: Bacteria identified Anaer cx Nom (Unsp spec) Anaerobic microbial culture No anaerobic bacteria isolated. [facility] Work Phone: Bacteria identified Cx Nom ( Wound) Wound Culture Meth. resistant Stap h. aureus [facility] Work Phone: Wound Culture Streptococcus agalactiae (B) [facility] Work Phone: COVID-19 virus antigen assay SARS-CoV-2 (COVID-19) Ag IA.rapid Ql (Resp) [facility] Work Phone: Culture, urine Bacteria identified Cx Nom (U) Culture exhibits no growth. [facility] Work Phone: Gram stain for investigation of transfusion reaction Microscopic observation Gram stain Nom (Unsp spec) [facility] Work Phone: Laboratory - Microbiology an d Antimicrobial susceptibility Bacteria identified Cx Nom (Bld) No growth in 5 days. [facility] Work Phone: Routine wound culture Bacteria identified Cx Nom (Wound) No growth aerobically. [facility] Work Phone: Vital Signs Date Time Vital Sign Value Performing Clinician Facility 01-04-2025 10:00-0400 Diastolic blood pressure 81 mm[Hg] Amy Solorzano [employer] [facility] Work Phone: 1(223)854-492170 [place] [address] 01-04-2025 10:00-0400 Heart rate 73 /min Amy Solorzano [employer] Work Phone: 6(029)845-296470 [place] [address] 01-04-2025 10:00-0400 Respiratory rate 13 /min Amy Solorzano [employer] Work Phone: 9(361)306-081070 [place] [address] 01-04-2025 10:00-0400 SaO2% (BldA) [Mass fraction] 97 % Amy Solorzano [employer] Work Phone: 5(302)660-933670 [place] [address] 01-04-2025 10:00-0400 Systolic blood pressure 147 mm[Hg] Amy Solorzano [employer] Work Phone: 6(789)054-837170 [place] [address] 01-04-2025 05:55-0400 Body height 167.64 cm Amy Solorazno [employer] Work Phone: 3(541)158-416670 [place] [address] 01-04-2025 05:55-0400 Body mass index (BMI) [Ratio] 36.8 kg/m2 Amy Solorzano [employer] Work Phone: 6(432)136-697170 [place] [address] 01-04-2025 05:55-0400 Body temperature 98.5 [degF] Amy Solorzano [employer] Work Phone: 1(199)108-630670 [place] [address] 01-04-2025 05:55-0400 Body weight 103.4 kg Amy Solorzano [employer] Work Phone: 8(254)938-965570 [place] [address] 01-02-2025 10:43-0400 Body temperature 97.8 [degF] Amy Solorzano [employer] Work Phone: 6(477)028-094670 [place] [address] 01-02-2025 10:43-0400 Diastolic blood pressure 89 mm[Hg] Amy Solorzano [employer] Work Phone: 2(576)641-700088 [place] [address] 01-02-2025 10:43-0400 Heart rate 85 /min Amy Solorzano [employer] Work Phone: 8(031)767-125788 [place] [address] 01-02-2025 10:43-0400 Respiratory rate 18 /min Amy Solorzano [employer] Work Phone: 6(691)922-336388 [place] [address] 01-02-2025 10:43-0400 SaO2% (BldA) [Mass fraction] 99 % Amy Solorzano [employer] Work Phone: 2(979)263-722988 [place] [address] 01-02-2025 10:43-0400 Systolic blood pressure 159 mm[Hg] Amy Solorzano [employer] Work Phone: 4(954)894-855370 [place] [address] 01-02-2025 06:57-0400 Body height 167.64 cm Amy Solorzano [employer] Work Phone: 5(575)615-500688 [place] [address] 01-02-2025 06:57-0400 Body mass index (BMI) [Ratio] 38 kg/m2 Amy Solorzano [employer] Work Phone: 2(862)977-288888 [place] [address] 01-02-2025 06:57-0400 Body weight 107.04 kg Amy Solorzano [employer] Work Phone: 2(786)041-383788 [place] [address] 01-01-2025 13:20-0400 Diastolic blood pressure 87 mm[Hg] Amy Solorzano [employer] Work Phone: 5(314)043-621788 [place] [address] 01-01-2025 13:20-0400 Heart rate 100 /min Amy Solorzano [employer] Work Phone: 8(974)424-844988 [place] [address] 01-01-2025 13:20-0400 Respiratory rate 20 /min Amy Solorzano [employer] Work Phone: 6(606)462-766888 [place] [address] 01-01-2025 13:20-0400 SaO2% (BldA) [Mass fraction] 98 % Amy Solorzano [employer] Work Phone: 8(066)124-913170 [place] [address] 01-01-2025 13:20-0400 Systolic blood pressure 103 mm[Hg] Amy Solorzano [employer] Work Phone: 4(569)885-948188 [place] [address] 01-01-2025 12:00-0400 Body temperature 98.1 [degF] Amy Solorzano [employer] Work Phone: 8(383)233-363288 [place] [address] 01-01-2025 04:10-0400 Body mass index (BMI) [Ratio] 38.9 kg/m2 Amykeiko Solorzano [employer] Work Phone: 3(169)263-998588 [place] [address] 01-01-2025 04:10-0400 Body weight 109.8 kg Amykeiko Solorzano [employer] Work Phone: 7(556)313-773088 [place] [address] 12-31-2024 23:46-0400 Body height 167.64 cm Amy Solorzano [employer] Work Phone: 4(067)459-269188 [place] [address] 12-31-2024 23:18-0400 Body temperature 98.3 [degF] Amy Solorzano [employer] Work Phone: 4(776)046-066488 [place] [address] 12-31-2024 23:18-0400 Diastolic blood pressure 103 mm[Hg] Amykeiko Solorzano [employer] Work Phone: 6(609)274-033688 [place] [address] 12-31-2024 23:18-0400 Heart rate 88 /min Amy Solorzano [employer] Work Phone: 5(474)098-554188 [place] [address] 12-31-2024 23:18-0400 Respiratory rate 16 /min Amykeiko Solorzano [employer] Work Phone: 8(448)152-852788 [place] [address] 12-31-2024 23:18-0400 SaO2% (BldA) [Mass fraction] 99 % Amy Solorzano [employer] Work Phone: 8(256)701-117488 [place] [address] 12-31-2024 23:18-0400 Systolic blood pressure 156 mm[Hg] Amy Solorzano [employer] Work Phone: 1(879)036-317288 [place] [address] 12-31-2024 18:33-0400 Body height 167.64 cm Amy Solorzano [employer] Work Phone: 9(303)193-018288 [place] [address] 12-31-2024 18:33-0400 Body mass index (BMI) [Ratio] 38.4 kg/m2 Amy Solorzano [employer] Work Phone: 3(393)502-382088 [place] [address] 12-31-2024 18:33-0400 Body weight 107.95 kg Amy Solorzano [employer] Work Phone: 0(096)232-283988 [place] [address] 12-31-2024 08:00-0400 Body temperature 98.2 [degF] Amy Solorzano [employer] Work Phone: 6(025)795-571588 [place] [address] 12-31-2024 08:00-0400 Diastolic blood pressure 81 mm[Hg] Amy Solorzano [employer] Work Phone: 2(364)641-276688 [place] [address] 12-31-2024 08:00-0400 Heart rate 73 /min Amy Solorzano [employer] Work Phone: 1(396)589-802488 [place] [address] 12-31-2024 08:00-0400 Respiratory rate 23 /min Amypalma Solorzano [employer] Work Phone: 5(290)411-830788 [place] [address] 12-31-2024 08:00-0400 SaO2% (BldA) [Mass fraction] 98 % Amypalma Solorzano [employer] Work Phone: 0(847)972-571788 [place] [address] 12-31-2024 08:00-0400 Systolic blood pressure 123 mm[Hg] Amy Solorzano [employer] Work Phone: 8(726)796-324588 [place] [address] 12-31-2024 05:29-0400 Body mass index (BMI) [Ratio] 39.2 kg/m2 Amy Solorzano [employer] Work Phone: 3(963)838-930688 [place] [address] 12-31-2024 05:29-0400 Body weight 110.1 kg Amy Solorzano [employer] Work Phone: 8(219)044-325188 [place] [address] 12-30-2024 13:37-0400 Body height 167.64 cm Amy Solorzano [employer] Work Phone: 6(698)123-994788 [place] [address] 12-30-2024 12:35-0400 Body temperature 97.4 [degF] Amy Solorzano [employer] Work Phone: 1(249)965-670988 [place] [address] 12-30-2024 12:35-0400 Diastolic blood pressure 93 mm[Hg] Amy Solorzano [employer] Work Phone: 6(716)782-741888 [place] [address] 12-30-2024 12:35-0400 Heart rate 94 /min Amy Solorzano [employer] Work Phone: 2(057)025-746688 [place] [address] 12-30-2024 12:35-0400 Respiratory rate 18 /min Amy Solorzano [employer] Work Phone: 4(833)363-702188 [place] [address] 12-30-2024 12:35-0400 SaO2% (BldA) [Mass fraction] 96 % Amy Solorzano [employer] Work Phone: 5(667)144-312688 [place] [address] 12-30-2024 12:35-0400 Systolic blood pressure 126 mm[Hg] Amy Solorzano [employer] Work Phone: 8(408)341-389188 [place] [address] 12-30-2024 10:25-0400 Body height 167.64 cm Amy Solorzano [employer] Work Phone: 4(418)541-630088 [place] [address] 12-30-2024 10:25-0400 Body mass index (BMI) [Ratio] 37.7 kg/m2 Amy Solorzano [employer] Work Phone: 7(131)503-111388 [place] [address] 12-30-2024 10:25-0400 Body weight 106 kg Amy Solorzano [employer] Work Phone: 6(866)644-826988 [place] [address] 12-13-2024 08:30-0400 Body height 167.64 cm Amy Solorzano [employer] Work Phone: 8(431)820-347188 [place] [address] 12-13-2024 08:30-0400 Body mass index (BMI) [Ratio] 39.2 kg/m2 Amy Solorzano [employer] Work Phone: 7(764)563-232288 [place] [address] 12-13-2024 08:30-0400 Body weight 110.22 kg Amy Solorzano [employer] Work Phone: 1(804)081-040388 [place] [address] 12-13-2024 08:30-0400 Diastolic blood pressure 97 mm[Hg] Amy Solorzano [employer]IST-C Work Phone: [facility] 12-13-2024 08:30-0400 Heart rate 93 /min Amy Solorzano [employer] Work Phone: 7(866)918-668370 [place] [address] 12-13-2024 08:30-0400 Respiratory rate 19 /min Amy Solorzano [employer] Work Phone: 4(904)958-553070 [place] [address] 12-13-2024 08:30-0400 SaO2% (BldA) [Mass fraction] 97 % Amy Solorzano [employer] Work Phone: 6(657)695-843070 [place] [address] 12-13-2024 08:30-0400 Systolic blood pressure 138 mm[Hg] Amy Solorzano [employer] Work Phone: 0(939)558-060870 [place] [address] 11-28-2024 13:00-0400 Body temperature 98 [degF] Amy Solorzano [employer] Work Phone: 8(663)795-703470 [place] [address] 11-28-2024 13:00-0400 Diastolic blood pressure 96 mm[Hg] Amy Solorzano [employer] Work Phone: 9(589)523-697270 [place] [address] 11-28-2024 13:00-0400 Heart rate 60 /min Amy Solorzano [employer] Work Phone: 5(933)265-876870 [place] [address] 11-28-2024 13:00-0400 SaO2% (BldA) [Mass fraction] 99 % Amy Solorzano [employer] Work Phone: [facility] 11-28-2024 13:00-0400 Systolic blood pressure 156 mm[Hg] Amy Solorzano [employer] Work Phone: 2(407)314-612770 [place] [address] 11-28-2024 08:25-0400 Body temperature 98.1 [degF] Amy Solorzano [employer] Work Phone: 1(460)900-828170 [place] [address] 11-28-2024 08:25-0400 Diastolic blood pressure 84 mm[Hg] Amy Solorzano [employer]IST[employer] Work Phone: [facility] 11-28-2024 08:25-0400 Heart rate 75 /min Amy Solorzano [employer] Work Phone: 0(332)177-651888 [place] [address] 11-28-2024 08:25-0400 Respiratory rate 18 /min Amy Solorzano [employer] Work Phone: 2(766)857-653688 [place] [address] 11-28-2024 08:25-0400 SaO2% (BldA) [Mass fraction] 97 % Amy Solorzano [employer] Work Phone: 0(070)581-709488 [place] [address] 11-28-2024 08:25-0400 Systolic blood pressure 154 mm[Hg] Amy Solorzano [employer] Work Phone: 4(908)649-518788 [place] [address] 11-27-2024 13:47-0400 Body height 167.64 cm Amy Solorzano [employer] Work Phone: 9(445)226-252888 [place] [address] 11-27-2024 13:47-0400 Body weight 110.7 kg Amy Solorzano [employer] Work Phone: 3(466)300-164288 [place] [address] 11-25-2024 14:54-0400 Body mass index (BMI) [Ratio] 39.4 kg/m2 Amy Solorzano [employer] Work Phone: 7(346)374-024588 [place] [address] 11-25-2024 14:00-0400 Diastolic blood pressure 91 mm[Hg] Amy Solorzano [employer] Work Phone: 1(198)277-135388 [place] [address] 11-25-2024 14:00-0400 Heart rate 91 /min Amy Solorzano [employer] Work Phone: 4(166)023-040688 [place] [address] 11-25-2024 14:00-0400 Respiratory rate 18 /min Amy Solorzano [employer] Work Phone: 9(634)582-836488 [place] [address] 11-25-2024 14:00-0400 SaO2% (BldA) [Mass fraction] 95 % Amy Solorzano [employer] Work Phone: 2(969)535-526788 [place] [address] 11-25-2024 14:00-0400 Systolic blood pressure 129 mm[Hg] Amy Solorzano [employer] Work Phone: 4(241)145-324488 [place] [address] 11-25-2024 11:00-0400 Body temperature 97.6 [degF] Amy Solorzano [employer] Work Phone: [facility] 11-25-2024 08:48-0400 Body height 167.64 cm Amy Rashad [employer] Work Phone: [facility] 11-25-2024 08:48-0400 Body mass index (BMI) [Ratio] 40.9 kg/m2 Amy Rashad [employer] Work Phone: [facility] 11-25-2024 08:48-0400 Body weight 115.03 kg Amy Rashad [employer] Work Phone: [facility] 07-03-2024 12:26-0500 Body mass index (BMI) [Ratio] 40.02 kg/m2 Krislyn Aberegg PA Work Phone: [facility] 07-03-2024 12:26-0500 Body temperature 97 [degF] Krislyn Aberegg PA Work Phone: [facility] 07-03-2024 12:26-0500 Body weight 115.9 kg Krislyn Aberegg PA Work Phone: [facility] 07-03-2024 12:26-0500 Diastolic blood pressure 90 mm[Hg] Krislyn Aberegg PA Work Phone: [facility] 07-03-2024 12:26-0500 Heart rate 104 /min Krislyn Aberegg PA Work Phone: [facility] 07-03-2024 12:26-0500 Respiratory rate 16 /min Krislyn Aberegg PA Work Phone: [facility] 07-03-2024 12:26-0500 SaO2% (BldA) [Mass fraction] 100 % Krislyn Aberegg PA Work Phone: [facility] 07-03-2024 12:26-0500 Systolic blood pressure 122 mm[Hg] Krislyn Aberegg PA Work Phone: [facility] 06-26-2024 10:36-0500 Body mass index (BMI) [Ratio] 39.95 kg/m2 Frantz Arevalo PA-C Work Phone: [facility] 06-26-2024 10:36-0500 Body temperature 97.39 [degF] Frantz Clutter PA-C Work Phone: [facility] 06-26-2024 10:36-0500 Body weight 115.7 kg Frantz Clutter PA-C Work Phone: [facility] 06-26-2024 10:36-0500 Diastolic blood pressure 78 mm[Hg] Frantz Clutter PA-C Work Phone: [facility] 06-26-2024 10:36-0500 Heart rate 117 /min Frantz Clutter PA-C Work Phone: [facility] 06-26-2024 10:36-0500 Respiratory rate 18 /min Frantz Clutter PA-C Work Phone: [facility] 06-26-2024 10:36-0500 SaO2% (BldA) [Mass fraction] 97 % Frantz Clutter PA-C Work Phone: [facility] 06-26-2024 10:36-0500 Systolic blood pressure 122 mm[Hg] Frantz Clutter PA-C Work Phone: [facility] 07-23-2023 11:30-0500 Body temperature 96.9 [degF] No Primary Care Physician [facility] 07-23-2023 11:30-0500 Diastolic blood pressure 82 mm[Hg] No Primary Care Physician [facility] 07-23-2023 11:30-0500 Heart rate 80 /min No Primary Care Physician [facility] 07-23-2023 11:30-0500 Respiratory rate 16 /min No Primary Care Physician [facility] 07-23-2023 11:30-0500 SaO2% (BldA) [Mass fraction] 99 % No Primary Care Physician [facility] 07-23-2023 11:30-0500 Systolic blood pressure 117 mm[Hg] No Primary Care Physician [facility] 07-23-2023 11:05-0500 Inhaled oxygen flow rate 4 L/min No Primary Care Physician [facility] 07-23-2023 08:34-0500 Body height 167.64 cm No Primary Care Physician [facility] 07-23-2023 08:34-0500 Body mass index (BMI) [Ratio] 32.5 kg/m2 No Primary Care Physician [facility] 07-23-2023 08:34-0500 Body weight 91.62 kg No Primary Care Physician [facility] 07-12-2023 10:13-0500 Body mass index (BMI) [Ratio] 32.1 kg/m2 No Primary Care Physician [facility] 07-12-2023 10:13-0500 Body temperature 98.2 [degF] No Primary Care Physician [facility] 07-12-2023 10:13-0500 Body weight 90.4 kg No Primary Care Physician [facility] 07-12-2023 10:13-0500 Diastolic blood pressure 90 mm[Hg] No Primary Care Physician [facility] 07-12-2023 10:13-0500 Heart rate 98 /min No Primary Care Physician [facility] 07-12-2023 10:13-0500 Respiratory rate 14 /min No Primary Care Physician [facility] 07-12-2023 10:13-0500 SaO2% (BldA) [Mass fraction] 100 % No Primary Care Physician [facility] 07-12-2023 10:13-0500 Systolic blood pressure 124 mm[Hg] No Primary Care Physician [facility] 07-02-2023 09:17-0500 Diastolic blood pressure 94 mm[Hg] No Primary Care Physician [facility] 07-02-2023 09:17-0500 Systolic blood pressure 142 mm[Hg] No Primary Care Physician [facility] 07-02-2023 09:14-0500 Body height 167.64 cm No Primary Care Physician [facility] 07-02-2023 09:14-0500 Body temperature 96.4 [degF] No Primary Care Physician [facility] 07-02-2023 09:14-0500 Heart rate 100 /min No Primary Care Physician [facility] 07-02-2023 09:14-0500 Respiratory rate 16 /min No Primary Care Physician [facility] 07-02-2023 09:14-0500 SaO2% (BldA) [Mass fraction] 100 % No Primary Care Physician [facility] 07-01-2023 10:07-0500 Body temperature 97 [degF] [facility] [employer] COORDINATOR Work Phone: [facility] 07-01-2023 10:07-0500 Body weight 93.44 kg [facility] [employer] PROGRAM COORDINATOR Work Phone: [facility] 07-01-2023 10:07-0500 Diastolic blood pressure 82 mm[Hg] [facility] [employer] SAFET[employer] PROGRAM COORDINATOR Work Phone: [facility] [facility] 07-01-2023 10:07-0500 Heart rate 91 /min [facility] B[employer]IAL VAULT SETTER.AUTO CLUB SAFETY PROGRAM COORDINATOR Work Phone: [facility] 07-01-2023 10:07-0500 Respiratory rate 18 /min [facility] B[employer]IAL VAULT SETTER.AUTO [employer]UB SAFETY PROGRAM COORDINATOR Work Phone: [facility] 07-01-2023 10:07-0500 SaO2% (BldA) [Mass fraction] 100 % [facility] B[employer]IAL VAULT SETTER.AUTO CLUB SAFETY PROGRAM COORDINATOR Work Phone: [facility] 07-01-2023 10:07-0500 Systolic blood pressure 117 mm[Hg] [facility] BURIAL VAULT SETTER.AUTO CLUB SAFETY PROGRAM COORDINATOR Work Phone: [facility] 06-30-2023 13:41-0500 Heart rate 72 /min No Primary Care Physician [facility] 06-30-2023 13:41-0500 Respiratory rate 16 /min No Primary Care Physician [facility] 06-30-2023 13:41-0500 SaO2% (BldA) [Mass fraction] 98 % No Primary Care Physician [facility] 06-30-2023 09:24-0500 Body mass index (BMI) [Ratio] 34 kg/m2 No Primary Care Physician [facility] 06-30-2023 09:24-0500 Body weight 95.7 kg No Primary Care Physician [facility] 06-30-2023 08:22-0500 Body temperature 98 [degF] No Primary Care Physician [facility] 06-30-2023 08:22-0500 Diastolic blood pressure 110 mm[Hg] No Primary Care Physician [facility] 06-30-2023 08:22-0500 Systolic blood pressure 170 mm[Hg] No Primary Care Physician [facility] 06-28-2023 09:17-0500 Body height 167.64 cm No Primary Care Physician [facility] 06-28-2023 09:17-0500 Body mass index (BMI) [Ratio] 33.6 kg/m2 No Primary Care Physician [facility] 06-28-2023 09:17-0500 Body temperature 98.2 [degF] No Primary Care Physician [facility] 06-28-2023 09:17-0500 Body weight 94.5 kg No Primary Care Physician [facility] 06-28-2023 09:17-0500 Diastolic blood pressure 105 mm[Hg] No Primary Care Physician [facility] 06-28-2023 09:17-0500 Heart rate 82 /min No Primary Care Physician [facility] 06-28-2023 09:17-0500 Respiratory rate 14 /min No Primary Care Physician [facility] 06-28-2023 09:17-0500 SaO2% (BldA) [Mass fraction] 99 % No Primary Care Physician [facility] 06-28-2023 09:17-0500 Systolic blood pressure 154 mm[Hg] No Primary Care Physician [facility] 06-27-2023 05:50-0500 Body height 167.64 cm No Primary Care Physician [facility] 06-27-2023 05:50-0500 Body mass index (BMI) [Ratio] 34 kg/m2 No Primary Care Physician [facility] 06-27-2023 05:50-0500 Body temperature 98.6 [degF] No Primary Care Physician [facility] 06-27-2023 05:50-0500 Body weight 95.7 kg No Primary Care Physician [facility] 06-27-2023 05:50-0500 Diastolic blood pressure 98 mm[Hg] No Primary Care Physician [facility] 06-27-2023 05:50-0500 Heart rate 85 /min No Primary Care Physician [facility] 06-27-2023 05:50-0500 Respiratory rate 16 /min No Primary Care Physician [facility] 06-27-2023 05:50-0500 SaO2% (BldA) [Mass fraction] 99 % No Primary Care Physician [facility] 06-27-2023 05:50-0500 Systolic blood pressure 163 mm[Hg] No Primary Care Physician [facility] 06-26-2023 17:04-0500 Heart rate 74 /min No Primary Care Physician [facility] 06-26-2023 17:04-0500 Respiratory rate 18 /min No Primary Care Physician [facility] 06-26-2023 17:04-0500 SaO2% (BldA) [Mass fraction] 97 % No Primary Care Physician [facility] 06-26-2023 11:30-0500 Body height 167.64 cm No Primary Care Physician [facility] 06-26-2023 11:30-0500 Body mass index (BMI) [Ratio] 34.1 kg/m2 No Primary Care Physician [facility] 06-26-2023 11:30-0500 Body temperature 97 [degF] No Primary Care Physician [facility] 06-26-2023 11:30-0500 Body weight 95.98 kg No Primary Care Physician [facility] 06-26-2023 11:30-0500 Diastolic blood pressure 120 mm[Hg] No Primary Care Physician [facility] 06-26-2023 11:30-0500 Systolic blood pressure 135 mm[Hg] No Primary Care Physician [facility] 06-25-2023 12:33-0500 Diastolic blood pressure 69 mm[Hg] No Primary Care Physician [facility] 06-25-2023 12:33-0500 Heart rate 82 /min No Primary Care Physician [facility] 06-25-2023 12:33-0500 Respiratory rate 16 /min No Primary Care Physician [facility] 06-25-2023 12:33-0500 SaO2% (BldA) [Mass fraction] 100 % No Primary Care Physician [facility] 06-25-2023 12:33-0500 Systolic blood pressure 124 mm[Hg] No Primary Care Physician [facility] 06-25-2023 09:27-0500 Body height 168 cm No Primary Care Physician [facility] 06-25-2023 09:27-0500 Body mass index (BMI) [Ratio] 32.1 kg/m2 No Primary Care Physician [facility] 06-25-2023 09:27-0500 Body temperature 96.5 [degF] No Primary Care Physician [facility] 06-25-2023 09:27-0500 Body weight 90.71 kg No Primary Care Physician [facility] 05-09-2023 14:02-0400 Body temperature 98.4 [degF] No Primary Care Physician [facility] 05-09-2023 14:02-0400 Diastolic blood pressure 102 mm[Hg] No Primary Care Physician [facility] 05-09-2023 14:02-0400 Heart rate 74 /min No Primary Care Physician [facility] 05-09-2023 14:02-0400 Respiratory rate 18 /min No Primary Care Physician [facility] 05-09-2023 14:02-0400 SaO2% (BldA) [Mass fraction] 100 % No Primary Care Physician [facility] 05-09-2023 14:02-0400 Systolic blood pressure 177 mm[Hg] No Primary Care Physician [facility] 05-09-2023 13:32-0400 Body temperature 98.4 [degF] [facility] Work Phone: 1(110)218-418388 [place] [address] 05-09-2023 13:32-0400 Diastolic blood pressure 121 mm[Hg] [facility] Work Phone: 5(887)260-287488 [place] [address] 05-09-2023 13:32-0400 Heart rate 74 /min [facility] Work Phone: 8(373)185-108388 [place] [address] 05-09-2023 13:32-0400 Respiratory rate 18 /min [facility] Work Phone: 6(333)510-612551 [address] 05-09-2023 13:32-0400 SaO2% (BldA) [Mass fraction] 100 % [facility] Work Phone: 2(944)576-683051 [address] 05-09-2023 13:32-0400 Systolic blood pressure 177 mm[Hg] [facility] Work Phone: 2(369)695-600288 [place] [address] 05-07-2023 11:35-0400 Body height 167.64 cm [facility] Work Phone: 4(550)172-025188 [place] [address] 05-07-2023 11:35-0400 Body mass index (BMI) [Ratio] 33.5 kg/m2 [facility] Work Phone: 8(071)435-157788 [place] [address] 05-07-2023 11:35-0400 Body weight 94.2 kg [facility] Work Phone: 1(425)690-879088 [place] [address] 05-04-2023 15:23-0400 Body height 167.64 cm [facility] Work Phone: 0(770)879-558588 [place] [address] 05-04-2023 15:23-0400 Body mass index (BMI) [Ratio] 33.5 kg/m2 [facility] Work Phone: 3(468)138-221488 [place] [address] 05-04-2023 15:23-0400 Body temperature 97.4 [degF] [facility] Work Phone: 8(192)831-070088 [place] [address] 05-04-2023 15:23-0400 Body weight 94.2 kg [facility] Work Phone: 5(295)608-463388 [place] [address] 05-04-2023 15:23-0400 Diastolic blood pressure 69 mm[Hg] [facility] Work Phone: 0(082)472-851688 [place] [address] 05-04-2023 15:23-0400 Heart rate 84 /min [facility] Work Phone: 9(800)760-830588 [place] [address] 05-04-2023 15:23-0400 Inhaled oxygen flow rate 96 L/min [facility] Work Phone: 8(565)255-898288 [place] [address] 05-04-2023 15:23-0400 Respiratory rate 16 /min [facility] Work Phone: 7(981)068-076388 [place] [address] 05-04-2023 15:23-0400 Systolic blood pressure 134 mm[Hg] [facility] Work Phone: 3(759)752-548888 [place] [address] 05-04-2023 14:51-0400 SaO2% (BldA) [Mass fraction] 97 % [facility] Work Phone: 7(264)579-732088 [place] [address] 04-15-2023 13:43-0400 Diastolic blood pressure 58 mm[Hg] [facility] Work Phone: 9(259)890-527788 [place] [address] 04-15-2023 13:43-0400 Heart rate 72 /min [facility] Work Phone: 5(080)980-951388 [place] [address] 04-15-2023 13:43-0400 Respiratory rate 16 /min [facility] Work Phone: 4(181)603-055888 [place] [address] 04-15-2023 13:43-0400 SaO2% (BldA) [Mass fraction] 99 % [facility] Work Phone: 9(808)985-979688 [place] [address] 04-15-2023 13:43-0400 Systolic blood pressure 122 mm[Hg] [facility] Work Phone: 5(699)815-691688 [place] [address] 04-15-2023 11:17-0400 Body mass index (BMI) [Ratio] 29.3 kg/m2 [facility] Work Phone: 8(026)592-798288 [place] [address] 04-15-2023 11:17-0400 Body temperature 97 [degF] [facility] Work Phone: 4(850)325-190788 [place] [address] 04-15-2023 11:17-0400 Body weight 82.4 kg [facility] Work Phone: 8(274)366-685688 [place] [address] 04-14-2023 11:51-0400 Body mass index (BMI) [Ratio] 32.3 kg/m2 [facility] Work Phone: 5(060)975-757788 [place] [address] 04-14-2023 11:51-0400 Body temperature 97.2 [degF] [facility] Work Phone: 8(242)932-008188 [place] [address] 04-14-2023 11:51-0400 Body weight 90.71 kg [facility] Work Phone: 1(754)534-441788 [place] [address] 04-14-2023 11:51-0400 Diastolic blood pressure 92 mm[Hg] [facility] Work Phone: 6(925)158-381788 [place] [address] 04-14-2023 11:51-0400 Heart rate 102 /min [facility] Work Phone: 0(479)135-804188 [place] [address] 04-14-2023 11:51-0400 Respiratory rate 24 /min [facility] Work Phone: 3(127)520-311288 [place] [address] 04-14-2023 11:51-0400 SaO2% (BldA) [Mass fraction] 100 % [facility] Work Phone: 9(857)307-760388 [place] [address] 04-14-2023 11:51-0400 Systolic blood pressure 131 mm[Hg] [facility] Work Phone: 6(007)332-829888 [place] [address] 04-13-2023 10:36-0400 Diastolic blood pressure 78 mm[Hg] [facility] Work Phone: 2(792)489-513588 [place] [address] 04-13-2023 10:36-0400 Heart rate 64 /min [facility] Work Phone: 0(471)774-470388 [place] [address] 04-13-2023 10:36-0400 Respiratory rate 14 /min [facility] Work Phone: 2(243)934-509388 [place] [address] 04-13-2023 10:36-0400 SaO2% (BldA) [Mass fraction] 98 % [facility] Work Phone: 1(344)279-115688 [place] [address] 04-13-2023 10:36-0400 Systolic blood pressure 108 mm[Hg] [facility] Work Phone: 7(259)713-171088 [place] [address] 04-13-2023 08:59-0400 Body mass index (BMI) [Ratio] 32.3 kg/m2 [facility] Work Phone: 3(214)327-924788 [place] [address] 04-13-2023 08:59-0400 Body temperature 95.9 [degF] [facility] Work Phone: 9(820)525-376788 [place] [address] 04-13-2023 08:59-0400 Body weight 90.71 kg [facility] Work Phone: 7(051)546-894988 [place] [address] 03-06-2023 08:15-0400 Body height 167.64 cm [facility] Work Phone: 6(950)219-100088 [place] [address] 03-06-2023 08:15-0400 Body mass index (BMI) [Ratio] 32.5 kg/m2 [facility] Work Phone: 6(686)225-320288 [place] [address] 03-06-2023 08:15-0400 Body temperature 97 [degF] [facility] Work Phone: 1(217)242-753288 [place] [address] 03-06-2023 08:15-0400 Body weight 91.3 kg [facility] Work Phone: [facility] 03-06-2023 08:15-0400 Diastolic blood pressure 113 mm[Hg] [facility] Work Phone: [facility] 03-06-2023 08:15-0400 Heart rate 100 /min [facility] Work Phone: [facility] 03-06-2023 08:15-0400 Respiratory rate 14 /min [facility] Work Phone: [facility] 03-06-2023 08:15-0400 SaO2% (BldA) [Mass fraction] 100 % [facility] Work Phone: [facility] 03-06-2023 08:15-0400 Systolic blood pressure 153 mm[Hg] [facility] Work Phone: [facility] 03-01-2023 10:40-0400 Body height 170.2 cm Dewayne Doran MD Work Phone: [facility] 03-01-2023 10:40-0400 Body temperature 98.2 [degF] Dewayne Doran MD Work Phone: [facility] 03-01-2023 10:40-0400 Body weight 90.1 kg Dewayne Doran MD Work Phone: [facility] 03-01-2023 10:40-0400 Diastolic blood pressure 87 mm[Hg] Dewayne Doran MD Work Phone: [facility] 03-01-2023 10:40-0400 Heart rate 109 /min Dewayne Doran MD Work Phone: [facility] 03-01-2023 10:40-0400 SaO2% (BldA) [Mass fraction] 97 % Dewayne Doran MD Work Phone: [facility] 03-01-2023 10:40-0400 Systolic blood pressure 119 mm[Hg] Dewayne Doran MD Work Phone: [facility] 02-26-2023 03:54-0400 Diastolic blood pressure 63 mm[Hg] [facility] Work Phone: 7(272)465-216488 [place] [address] 02-26-2023 03:54-0400 Heart rate 68 /min [facility] Work Phone: 6(104)297-362288 [place] [address] 02-26-2023 03:54-0400 Respiratory rate 15 /min [facility] Work Phone: 0(253)378-523588 [place] [address] 02-26-2023 03:54-0400 SaO2% (BldA) [Mass fraction] 97 % [facility] Work Phone: 3(630)384-591188 [place] [address] 02-26-2023 03:54-0400 Systolic blood pressure 107 mm[Hg] [facility] Work Phone: 3(590)777-228688 [place] [address] 02-25-2023 23:59-0400 Body height 167.64 cm [facility] Work Phone: 5(558)801-704888 [place] [address] 02-25-2023 23:59-0400 Body mass index (BMI) [Ratio] 31.8 kg/m2 [facility] Work Phone: 5(931)998-092188 [place] [address] 02-25-2023 23:59-0400 Body temperature 98 [degF] [facility] Work Phone: 7(219)129-307188 [place] [address] 02-25-2023 23:59-0400 Body weight 89.44 kg [facility] Work Phone: 9(095)588-005088 [place] [address] 02-24-2023 12:55-0400 Diastolic blood pressure 93 mm[Hg] [facility] Work Phone: 4(039)156-719288 [place] [address] 02-24-2023 12:55-0400 Heart rate 85 /min [facility] Work Phone: 2(297)275-123788 [place] [address] 02-24-2023 12:55-0400 Respiratory rate 18 /min [facility] Work Phone: 8(706)649-291888 [place] [address] 02-24-2023 12:55-0400 SaO2% (BldA) [Mass fraction] 96 % [facility] Work Phone: 2(034)779-116988 [place] [address] 02-24-2023 12:55-0400 Systolic blood pressure 124 mm[Hg] [facility] Work Phone: 4(465)815-429488 [place] [address] 02-24-2023 11:32-0400 Body mass index (BMI) [Ratio] 32.4 kg/m2 [facility] Work Phone: [facility] 02-24-2023 11:32-0400 Body temperature 97.8 [degF] [facility] Work Phone: [facility] 02-24-2023 11:32-0400 Body weight 91.22 kg [facility] Work Phone: [facility] 02-23-2023 09:59-0400 Body temperature 97.11 [degF] Pilar Magdaleno APRN.AUTO CLUB SAFETY PROGRAM COORDINATOR Work Phone: [facility] 02-23-2023 09:59-0400 Body weight 91.17 kg Pilar Magdaleno APRN.AUTO CLUB SAFETY PROGRAM COORDINATOR Work Phone: [facility] 02-23-2023 09:59-0400 Diastolic blood pressure 74 mm[Hg] Pilar Magdaleno APRN.AUTO CLUB SAFETY PROGRAM COORDINATOR Work Phone: [facility] 02-23-2023 09:59-0400 Heart rate 88 /min Pilar Magdaleno APRN.AUTO CLUB SAFETY PROGRAM COORDINATOR Work Phone: [facility] 02-23-2023 09:59-0400 Respiratory rate 16 /min Pilar Magdaleno APRN.AUTO CLUB SAFETY PROGRAM COORDINATOR Work Phone: [facility] 02-23-2023 09:59-0400 Systolic blood pressure 118 mm[Hg] Pilar Magdaleno APRN.AUTO CLUB SAFETY PROGRAM COORDINATOR Work Phone: [facility] 02-11-2023 15:17-0400 Body temperature 97.88 [degF] HELENA SILVERMAN APRN-AUTO CLUB SAFETY PROGRAM COORDINATOR [facility] 02-11-2023 15:17-0400 Diastolic Blood Pressure Non-Invasive 86 1 HELENA SILVERMAN APRN-AUTO CLUB SAFETY PROGRAM COORDINATOR [facility] 02-11-2023 15:17-0400 Heart rate 67 /min HELENA SILVERMAN APRN-AUTO CLUB SAFETY PROGRAM COORDINATOR [facility] 02-11-2023 15:17-0400 Reason For Taking VItal Signs HELENA SILVERMAN B[employer]IAL VA[employer] SETTER-AUT[employer] CLUB SAFETY PROGRAM COORDINATOR [facility] 02-11-2023 15:17-0400 Systolic Blood Pressure Non-Invasive 137 1 HELENA HERRERA B[employer]IAL VAULT SETTER-AUT[employer]UB SAFETY PROGRAM COORDINATOR [facility] 02-11-2023 11:58-0400 Body temperature 97.7 [degF] HELENA SILVERMAN BURIAL VAULT SETTER-AUTO CLUB SAFETY PROGRAM COORDINATOR [facility] 02-11-2023 11:58-0400 Diastolic Blood Pressure Non-Invasive 94 1 HELENA SILVERMAN BURIAL VAULT SETTER-AUT[employer] CLUB SAFETY PROGRAM COORDINATOR [facility] 02-11-2023 11:58-0400 Heart rate 68 /min HELENA SILVERMAN BURIAL VAULT SETTER-AUT[employer] CLUB SAFETY PROGRAM COORDINATOR [facility] 02-11-2023 11:58-0400 Reason For Taking VItal Signs HELENA SILVERMAN BURIAL VAULT SETTER-AUTO CLUB SAFETY PROGRAM COORDINATOR [facility] 02-11-2023 11:58-0400 Respiratory rate 18 /min HELENA SILVERMAN BURIAL VAULT SETTER-AUT[employer] CLUB SAFETY PROGRAM COORDINATOR [facility] 02-11-2023 11:58-0400 Systolic Blood Pressure Non-Invasive 138 1 HELENA SILVERMAN BURIAL VAULT SETTER-AUT[employer] CLUB SAFETY PROGRAM COORDINATOR [facility] 02-11-2023 07:52-0400 Body temperature 98.06 [degF] HELENA SILVERMAN BURIAL VAULT SETTER-AUT[employer] CLUB SAFETY PROGRAM COORDINATOR [facility] 02-11-2023 07:52-0400 Diastolic Blood Pressure Non-Invasive 82 1 HELENA SILVERMAN BURIAL VAULT SETTER-AUT[employer] CLUB SAFETY PROGRAM COORDINATOR [facility] 02-11-2023 07:52-0400 Heart rate 75 /min HELENA SILVERMAN BURIAL VAULT SETTER-AUT[employer]UB SAFETY PROGRAM COORDINATOR [facility] 02-11-2023 07:52-0400 Reason For Taking VItal Signs HELENA SILVERMAN APRN-AUTO CLUB SAFETY PROGRAM COORDINATOR [facility] 02-11-2023 07:52-0400 Respiratory rate 18 /min HELENA SILVERMAN BURIAL VAULT SETTER-AUT[employer]UB SAFETY PROGRAM COORDINATOR [facility] 02-11-2023 07:52-0400 Systolic Blood Pressure Non-Invasive 127 1 HELENA SILVERMAN BURIAL VAULT SETTER-AUT[employer]UB SAFETY PROGRAM COORDINATOR [facility] 02-11-2023 05:25-0400 Respiratory rate 18 /min HELENA SILVERMAN BURIAL VAULT SETTER-AUT[employer] CLUB SAFETY PROGRAM COORDINATOR [facility] 02-11-2023 01:49-0400 Body height 169.9 cm HELENA SILVERMAN B[employer]IAL VAULT SETTER-AUT[employer]UB SAFETY PROGRAM COORDINATOR [facility] 02-11-2023 01:49-0400 Body weight 94.4 kg HELENA SILVERMAN B[employer]IAL VAULT SETTER-AUT[employer]UB SAFETY PROGRAM COORDINATOR [facility] 02-11-2023 01:49-0400 Body weight 32.7 kg/m2 HELENA SILVERMAN B[employer]IAL VAULT SETTER-AUT[employer] CLUB SAFETY PROGRAM COORDINATOR [facility] 02-10-2023 23:34-0400 Blood Pressure Cuff Size HELENA SILVERMAN B[employer]IAL VAULT SETTER-AUT[employer]UB SAFETY PROGRAM COORDINATOR [facility] 02-10-2023 23:34-0400 Blood Pressure Location HELENA SILVERMAN B[employer]IAL VAULT SETTER-AUT[employer]UB SAFETY PROGRAM COORDINATOR [facility] 02-10-2023 23:34-0400 Blood Pressure Method HELENA SILVERMAN B[employer]IAL VAULT SETTER-AUT[employer]UB SAFETY PROGRAM COORDINATOR [facility] 02-10-2023 23:34-0400 Body height 167.6 cm HELENA SILVERMAN B[employer]IAL VAULT SETTER-AUT[employer]UB SAFETY PROGRAM COORDINATOR [facility] 02-10-2023 23:34-0400 Body temperature 98.24 [degF] HELENA SILVERMAN B[employer]IAL VAULT SETTER-AUT[employer] CLUB SAFETY PROGRAM COORDINATOR [facility] 02-10-2023 23:34-0400 Body weight 97.7 kg HELENA SILVERMAN B[employer]IAL VAULT SETTER-AUT[employer]UB SAFETY PROGRAM COORDINATOR [facility] 02-10-2023 23:34-0400 Heart rate 90 /min HELENA SILVERMAN B[employer]IAL VAULT SETTER-AUT[employer]UB SAFETY PROGRAM COORDINATOR [facility] 02-08-2023 15:46-0400 Heart rate 97 /min [facility] Work Phone: 3(077)459-415551 [address] 02-08-2023 15:46-0400 Respiratory rate 21 /min [facility] Work Phone: 9(964)859-177388 [place] [address] 02-08-2023 15:46-0400 SaO2% (BldA) [Mass fraction] 96 % [facility] Work Phone: 6(768)498-863388 [place] [address] 02-08-2023 11:06-0400 Body height 167.64 cm [facility] Work Phone: 3(690)971-651088 [place] [address] 02-08-2023 11:06-0400 Body mass index (BMI) [Ratio] 34 kg/m2 [facility] Work Phone: 6(370)733-649888 [place] [address] 02-08-2023 11:06-0400 Body temperature 96 [degF] [facility] Work Phone: 7(465)109-625088 [place] [address] 02-08-2023 11:06-0400 Body weight 95.52 kg [facility] Work Phone: 7(854)253-688988 [place] [address] 02-08-2023 11:06-0400 Diastolic blood pressure 90 mm[Hg] [facility] Work Phone: 4(168)108-990088 [place] [address] 02-08-2023 11:06-0400 Systolic blood pressure 149 mm[Hg] [facility] Work Phone: 6(995)996-135488 [place] [address] 01-25-2023 11:35-0400 Body height 167.64 cm [facility] Work Phone: 1(452)030-594888 [place] [address] 01-25-2023 11:35-0400 Body mass index (BMI) [Ratio] 35.2 kg/m2 [facility] Work Phone: 6(077)758-268388 [place] [address] 01-25-2023 11:35-0400 Body temperature 96 [degF] [facility] Work Phone: 1(332)970-742188 [place] [address] 01-25-2023 11:35-0400 Body weight 98.8 kg [facility] Work Phone: 1(480)763-369588 [place] [address] 01-25-2023 11:35-0400 Diastolic blood pressure 87 mm[Hg] [facility] [facility] Work Phone: 5(752)958-362788 [place] [address] 01-25-2023 11:35-0400 Heart rate 86 /min [facility] Work Phone: 7(477)660-090788 [place] [address] 01-25-2023 11:35-0400 Respiratory rate 14 /min [facility] Work Phone: 5(131)012-866888 [place] [address] 01-25-2023 11:35-0400 SaO2% (BldA) [Mass fraction] 100 % [facility] Work Phone: 2(821)810-224588 [place] [address] 01-25-2023 11:35-0400 Systolic blood pressure 123 mm[Hg] [facility] Work Phone: 2(613)397-990488 [place] [address] 01-24-2023 12:38-0400 Diastolic blood pressure 74 mm[Hg] Abdirizak Ramirez MD Work Phone: [facility] 01-24-2023 12:38-0400 Heart rate 70 /min Abdirizak Ramirez MD Work Phone: [facility] 01-24-2023 12:38-0400 SaO2% (BldA) [Mass fraction] 98 % Abdirizak Ramirez MD Work Phone: [facility] 01-24-2023 12:38-0400 Systolic blood pressure 129 mm[Hg] Abdirizak Ramirez MD Work Phone: [facility] 01-24-2023 12:09-0400 Respiratory rate 15 /min Abdirizak Ramirez MD Work Phone: [facility] 01-24-2023 10:28-0400 Body height 167.6 cm Abdirizak Ramirez MD Work Phone: [facility] 01-24-2023 10:28-0400 Body mass index (BMI) [Ratio] 37.12 kg/m2 Abdirizak Ramirez MD Work Phone: [facility] 01-24-2023 10:28-0400 Body temperature 97.3 [degF] Abdirizak Ramirez MD Work Phone: [facility] 01-24-2023 10:28-0400 Body weight 104.33 kg Abdirizak Ramirez MD Work Phone: [facility] 01-15-2023 15:08-0400 Body temperature 97.9 [degF] [facility] Work Phone: 5(683)287-284670 [place] [address] 01-15-2023 15:08-0400 Diastolic blood pressure 102 mm[Hg] [facility] Work Phone: 7(542)806-278170 [place] [address] 01-15-2023 15:08-0400 Heart rate 73 /min [facility] Work Phone: 8(787)103-842270 [place] [address] 01-15-2023 15:08-0400 Respiratory rate 16 /min [facility] Work Phone: 2(271)421-464970 [place] [address] 01-15-2023 15:08-0400 SaO2% (BldA) [Mass fraction] 97 % [facility] Work Phone: 4(179)471-352870 [place] [address] 01-15-2023 15:08-0400 Systolic blood pressure 168 mm[Hg] [facility] Work Phone: 3(436)988-610070 [place] [address] 01-15-2023 12:58-0400 Body height 167.64 cm [facility] Work Phone: 3(881)818-601570 [place] [address] 01-15-2023 12:58-0400 Body weight 104 kg [facility] Work Phone: 9(150)006-553388 [place] [address] 01-14-2023 16:21-0400 Body mass index (BMI) [Ratio] 37 kg/m2 [facility] Work Phone: 3(461)817-877288 [place] [address] 01-13-2023 10:20-0400 Respiratory rate 16 /min [facility] Work Phone: 0(996)420-941588 [place] [address] 01-13-2023 06:21-0400 Body mass index (BMI) [Ratio] 37.6 kg/m2 [facility] Work Phone: 4(549)993-806588 [place] [address] 01-13-2023 06:21-0400 Body temperature 97 [degF] [facility] Work Phone: 9(506)280-801588 [place] [address] 01-13-2023 06:21-0400 Body weight 105.9 kg [facility] Work Phone: 1(003)856-870488 [place] [address] 01-13-2023 06:21-0400 Diastolic blood pressure 106 mm[Hg] [facility] Work Phone: 2(633)322-887888 [place] [address] 01-13-2023 06:21-0400 Heart rate 99 /min [facility] Work Phone: 2(975)926-892188 [place] [address] 01-13-2023 06:21-0400 SaO2% (BldA) [Mass fraction] 99 % [facility] Work Phone: 3(400)443-509488 [place] [address] 01-13-2023 06:21-0400 Systolic blood pressure 169 mm[Hg] [facility] Work Phone: 6(723)807-205888 [place] [address] 01-12-2023 13:20-0400 Diastolic blood pressure 101 mm[Hg] [facility] 01-12-2023 13:20-0400 Heart rate 70 /min [facility] 01-12-2023 13:20-0400 Respiratory rate 14 /min [facility] 01-12-2023 13:20-0400 SaO2% (BldA) [Mass fraction] 98 % [facility] 01-12-2023 13:20-0400 Systolic blood pressure 143 mm[Hg] [facility] 01-12-2023 10:45-0400 Body height 167.64 cm [facility] 01-12-2023 10:45-0400 Body mass index (BMI) [Ratio] 37.6 kg/m2 [facility] 01-12-2023 10:45-0400 Body temperature 95.2 [degF] [facility] 01-12-2023 10:45-0400 Body weight 105.8 kg [facility] 01-12-2023 02:13-0400 Diastolic blood pressure 87 mm[Hg] [facility] 01-12-2023 02:13-0400 Heart rate 84 /min [facility] 01-12-2023 02:13-0400 Respiratory rate 18 /min [facility] 01-12-2023 02:13-0400 SaO2% (BldA) [Mass fraction] 99 % [facility] 01-12-2023 02:13-0400 Systolic blood pressure 141 mm[Hg] [facility] 01-11-2023 22:58-0400 Body height 167.64 cm [facility] 01-11-2023 22:58-0400 Body mass index (BMI) [Ratio] 33 kg/m2 [facility] 01-11-2023 22:58-0400 Body temperature 96.8 [degF] [facility] 01-11-2023 22:58-0400 Body weight 92.98 kg [facility] 01-10-2023 17:27-0400 Body temperature 98.78 [degF] ESSIE LAWLERSeatGeek [facility] 01-10-2023 17:27-0400 Diastolic Blood Pressure Non-Invasive 80 1 ESSIE WASHINGTONCelergo [facility] 01-10-2023 17:27-0400 Heart rate 78 /min ESSIE WASHINGTONCelergo [facility] 01-10-2023 17:27-0400 Respiratory rate 16 /min ESSIE WASHINGTONCelergo [facility] 01-10-2023 17:27-0400 Systolic Blood Pressure Non-Invasive 148 1 ESSIE FROMMELT DO [facility] 01-10-2023 16:16-0400 Body temperature 98.78 [degF] ESSIE FROMMELT DO [facility] 01-10-2023 15:43-0400 Diastolic Blood Pressure Non-Invasive 89 1 ESSIE FROMMELT DO [facility] 01-10-2023 15:43-0400 Heart rate 77 /min ESSIE FROMMELT DO [facility] 01-10-2023 15:43-0400 Respiratory rate 16 /min ESSIE FROMMELT DO [facility] 01-10-2023 15:43-0400 Systolic Blood Pressure Non-Invasive 144 1 ESSIE WASHINGTONMELT DO [facility] 01-10-2023 15:09-0400 Heart rate 74 /min ESSIE WASHINGTONMaterialiseT DO [facility] 01-10-2023 14:32-0400 Respiratory rate 12 /min ESSIE WASHINGTONMaterialiseT DO [facility] 01-10-2023 13:47-0400 Body temperature 98.78 [degF] ESSIE WASHINGTONMELT DO [facility] 01-10-2023 13:47-0400 Diastolic Blood Pressure Non-Invasive 92 1 ESSIE WASHINGTONMELT DO [facility] 01-10-2023 13:47-0400 Systolic Blood Pressure Non-Invasive 158 1 ESSIE WASHINGTONMELT DO [facility] 01-09-2023 15:21-0400 Diastolic blood pressure 70 mm[Hg] [facility] 01-09-2023 15:21-0400 Heart rate 84 /min [facility] 01-09-2023 15:21-0400 Respiratory rate 16 /min [facility] 01-09-2023 15:21-0400 SaO2% (BldA) [Mass fraction] 97 % [facility] 01-09-2023 15:21-0400 Systolic blood pressure 139 mm[Hg] [facility] 01-09-2023 11:53-0400 Body height 167.64 cm [facility] 01-09-2023 11:53-0400 Body mass index (BMI) [Ratio] 41.1 kg/m2 [facility] 01-09-2023 11:53-0400 Body temperature 98.2 [degF] [facility] 01-09-2023 11:53-0400 Body weight 115.4 kg [facility] 01-07-2023 14:18-0400 Respiratory rate 14 /min [facility] 01-07-2023 12:01-0400 Diastolic blood pressure 99 mm[Hg] [facility] 01-07-2023 12:01-0400 Systolic blood pressure 154 mm[Hg] [facility] 01-07-2023 08:38-0400 Body height 167.64 cm [facility] 01-07-2023 08:38-0400 Body mass index (BMI) [Ratio] 34.5 kg/m2 [facility] 01-07-2023 08:38-0400 Body temperature 98.7 [degF] [facility] 01-07-2023 08:38-0400 Body weight 97.06 kg [facility] 01-07-2023 08:38-0400 Heart rate 82 /min [facility] 01-07-2023 08:38-0400 SaO2% (BldA) [Mass fraction] 99 % [facility] 11-19-2022 09:26-0400 Body temperature 98.7 [degF] [facility] 11-19-2022 09:26-0400 Diastolic blood pressure 81 mm[Hg] [facility] 11-19-2022 09:26-0400 Heart rate 101 /min [facility] 11-19-2022 09:26-0400 Respiratory rate 14 /min [facility] 11-19-2022 09:26-0400 SaO2% (BldA) [Mass fraction] 99 % [facility] 11-19-2022 09:26-0400 Systolic blood pressure 131 mm[Hg] [facility] 11-19-2022 09:24-0400 Body mass index (BMI) [Ratio] 39.3 kg/m2 [facility] 11-19-2022 09:24-0400 Body weight 110.5 kg [facility] 11-17-2022 08:43-0400 Body temperature 97.5 [degF] [facility] [employer] PROGRAM COORDINATOR Work Phone: [facility] 11-17-2022 08:43-0400 Body weight 110.22 kg Andres [facility] [employer] SAFETY PROGRAM COORDINATOR Work Phone: [facility] 11-17-2022 08:43-0400 Diastolic blood pressure 72 mm[Hg] [facility] [employer]TER.[employer] SAFETY PROGRAM COORDINATOR Work Phone: [facility] 11-17-2022 08:43-0400 Heart rate 108 /min [facility] [employer]TER.[employer] SAFETY PROGRAM COORDINATOR Work Phone: [facility] 11-17-2022 08:43-0400 Respiratory rate 16 /min [facility] [employer]TER.[employer] SAFETY PROGRAM COORDINATOR Work Phone: [facility] 11-17-2022 08:43-0400 SaO2% (BldA) [Mass fraction] 97 % [facility] [employer]TER.[employer] SAFETY PROGRAM COORDINATOR Work Phone: [facility] 11-17-2022 08:43-0400 Systolic blood pressure 120 mm[Hg] [facility] [employer] SAFETY PROGRAM COORDINATOR Work Phone: [facility] 10-08-2022 08:44-0400 Body temperature 97 [degF] Shamika Goins PA-C Work Phone: [facility] 10-08-2022 08:44-0400 Body weight 109.14 kg Shamika Athy PA-C Work Phone: [facility] 10-08-2022 08:44-0400 Diastolic blood pressure 82 mm[Hg] Shamika Athy PA-C Work Phone: [facility] 10-08-2022 08:44-0400 Heart rate 94 /min Shamika Athy PA-C Work Phone: [facility] 10-08-2022 08:44-0400 Respiratory rate 16 /min Shamika Athy PA-C Work Phone: [facility] 10-08-2022 08:44-0400 SaO2% (BldA) [Mass fraction] 100 % Shamika Athy PA-C Work Phone: [facility] 10-08-2022 08:44-0400 Systolic blood pressure 112 mm[Hg] Shamika Zeyady PA-C Work Phone: [facility] 08-15-2022 13:46-0500 Body temperature 98.6 [degF] Dr. Sophy Gibbons Work Phone: [facility] 08-15-2022 13:46-0500 Diastolic blood pressure 95 mm[Hg] Dr. Sophy Gibbons Work Phone: [facility] 08-15-2022 13:46-0500 Heart rate 87 /min Dr. Sophy Gibbons Work Phone: [facility] 08-15-2022 13:46-0500 Respiratory rate 16 /min Dr. Sophy Gibbons Work Phone: [facility] 08-15-2022 13:46-0500 SaO2% (BldA) [Mass fraction] 99 % Dr. Sophy Gibbons Work Phone: [facility] 08-15-2022 13:46-0500 Systolic blood pressure 130 mm[Hg] Dr. Sophy Gibbons Work Phone: [facility] 08-15-2022 05:43-0500 Body weight 107.[address] Sophy Gibbons Work Phone: 1(264)806-504488 [place] [address] 08-13-2022 10:58-0500 Body height 167.[address] Sophy Gibbons Work Phone: 2(989)435-816488 [place] [address] 08-12-2022 22:34-0500 Body mass index (BMI) [Ratio] 37.9 kg/m2 Dr. Sophy Gibbons Work Phone: 3(200)299-207288 [place] [address] 08-12-2022 22:03-0500 Body temperature 98 [degF] Dr. Sophy Gibbons Work Phone: 6(047)651-453688 [place] [address] 08-12-2022 22:03-0500 Diastolic blood pressure 74 mm[Hg] Dr. Sophy Gibbons Work Phone: 7(606)741-240088 [place] [address] 08-12-2022 22:03-0500 Heart rate 82 /min Dr. Sophy Gibbons Work Phone: 0(428)399-126488 [place] [address] 08-12-2022 22:03-0500 Respiratory rate 15 /min Dr. Sophy Gibbons Work Phone: 3(979)724-143888 [place] [address] 08-12-2022 22:03-0500 SaO2% (BldA) [Mass fraction] 99 % Dr. Sophy Gibbons Work Phone: 4(570)761-423888 [place] [address] 08-12-2022 22:03-0500 Systolic blood pressure 118 mm[Hg] Dr. Sophy Gibbons Work Phone: 9(953)907-284888 [place] [address] 08-12-2022 15:27-0500 Body height 167.[address] Sophy Gibbons Work Phone: 2(704)156-636188 [place] [address] 08-12-2022 15:27-0500 Body mass index (BMI) [Ratio] 37.9 kg/m2 Dr. Sophy Gibbons Work Phone: 1(561)611-294088 [place] [address] 08-12-2022 15:27-0500 Body weight 106.[address] Sophy Gibbons Work Phone: 7(952)442-123588 [place] [address] 06-29-2022 08:39-0500 Body temperature 97.6 [degF] No Primary Care Physician [facility] 06-29-2022 08:39-0500 Diastolic blood pressure 90 mm[Hg] No Primary Care Physician [facility] 06-29-2022 08:39-0500 Heart rate 81 /min No Primary Care Physician [facility] 06-29-2022 08:39-0500 Respiratory rate 16 /min No Primary Care Physician [facility] 06-29-2022 08:39-0500 SaO2% (BldA) [Mass fraction] 99 % No Primary Care Physician [facility] 06-29-2022 08:39-0500 Systolic blood pressure 130 mm[Hg] No Primary Care Physician [facility] 06-26-2022 06:09-0500 Body height 167.64 cm No Primary Care Physician [facility] Work Phone: 06-26-2022 06:09-0500 Body mass index (BMI) [Ratio] 38.1 kg/m2 No Primary Care Physician [facility] 06-26-2022 06:09-0500 Body weight 107.1 kg No Primary Care Physician [facility] 06-25-2022 03:57-0500 Body temperature 98.1 [degF] No Primary Care Physician [facility] Work Phone: 06-25-2022 03:57-0500 Diastolic blood pressure 99 mm[Hg] No Primary Care Physician [facility] Work Phone: 06-25-2022 03:57-0500 Heart rate 96 /min No Primary Care Physician [facility] Work Phone: 06-25-2022 03:57-0500 Respiratory rate 18 /min No Primary Care Physician [facility] Work Phone: 06-25-2022 03:57-0500 SaO2% (BldA) [Mass fraction] 97 % No Primary Care Physician [facility] Work Phone: 06-25-2022 03:57-0500 Systolic blood pressure 134 mm[Hg] No Primary Care Physician [facility] Work Phone: 06-24-2022 16:48-0500 Body height 167.64 cm No Primary Care Physician [facility] Work Phone: 06-24-2022 16:48-0500 Body mass index (BMI) [Ratio] 38 kg/m2 No Primary Care Physician [facility] Work Phone: 06-24-2022 16:48-0500 Body weight 107.04 kg No Primary Care Physician [facility] Work Phone: 06-24-2022 15:30-0500 Body temperature 98.9 [degF] No Primary Care Physician [facility] Work Phone: 06-24-2022 15:30-0500 Diastolic blood pressure 99 mm[Hg] No Primary Care Physician [facility] Work Phone: 06-24-2022 15:30-0500 Heart rate 97 /min No Primary Care Physician [facility] Work Phone: 06-24-2022 15:30-0500 Respiratory rate 15 /min No Primary Care Physician [facility] Work Phone: 06-24-2022 15:30-0500 SaO2% (BldA) [Mass fraction] 100 % No Primary Care Physician [facility] Work Phone: 06-24-2022 15:30-0500 Systolic blood pressure 137 mm[Hg] No Primary Care Physician [facility] Work Phone: 06-24-2022 11:12-0500 Body height 167.64 cm No Primary Care Physician [facility] Work Phone: 06-24-2022 11:12-0500 Body mass index (BMI) [Ratio] 35.5 kg/m2 No Primary Care Physician [facility] Work Phone: 06-24-2022 11:12-0500 Body weight 99.79 kg No Primary Care Physician [facility] Work Phone: 04-09-2022 16:15-0400 Body temperature 98.2 [degF] No Primary Care Physician [facility] Work Phone: 04-09-2022 16:15-0400 Diastolic blood pressure 87 mm[Hg] No Primary Care Physician [facility] Work Phone: 04-09-2022 16:15-0400 Heart rate 89 /min No Primary Care Physician [facility] Work Phone: 04-09-2022 16:15-0400 Respiratory rate 18 /min No Primary Care Physician [facility] Work Phone: 04-09-2022 16:15-0400 SaO2% (BldA) [Mass fraction] 99 % No Primary Care Physician [facility] Work Phone: 04-09-2022 16:15-0400 Systolic blood pressure 136 mm[Hg] No Primary Care Physician [facility] Work Phone: 04-08-2022 11:30-0400 Body height 167.64 cm No Primary Care Physician [facility] Work Phone: 04-08-2022 11:30-0400 Body weight 96.6 kg No Primary Care Physician [facility] Work Phone: 04-06-2022 17:48-0400 Body mass index (BMI) [Ratio] 34.3 kg/m2 No Primary Care Physician [facility] Work Phone: 04-06-2022 15:39-0400 Body temperature 100.1 [degF] No Primary Care Physician [facility] Work Phone: 04-06-2022 15:39-0400 Diastolic blood pressure 79 mm[Hg] No Primary Care Physician [facility] Work Phone: 04-06-2022 15:39-0400 Heart rate 114 /min No Primary Care Physician [facility] Work Phone: 04-06-2022 15:39-0400 Respiratory rate 20 /min No Primary Care Physician [facility] Work Phone: 04-06-2022 15:39-0400 SaO2% (BldA) [Mass fraction] 98 % No Primary Care Physician [facility] Work Phone: 04-06-2022 15:39-0400 Systolic blood pressure 136 mm[Hg] No Primary Care Physician [facility] Work Phone: 04-06-2022 12:45-0400 Body height 167.64 cm No Primary Care Physician [facility] Work Phone: 04-06-2022 12:45-0400 Body mass index (BMI) [Ratio] 34.7 kg/m2 No Primary Care Physician [facility] Work Phone: 04-06-2022 12:45-0400 Body weight 97.5 kg No Primary Care Physician [facility] Work Phone: 04-05-2022 16:06-0400 Diastolic blood pressure 95 mm[Hg] No Primary Care Physician [facility] Work Phone: 04-05-2022 16:06-0400 Heart rate 103 /min No Primary Care Physician [facility] Work Phone: 04-05-2022 16:06-0400 Respiratory rate 16 /min No Primary Care Physician [facility] Work Phone: 04-05-2022 16:06-0400 SaO2% (BldA) [Mass fraction] 98 % No Primary Care Physician [facility] Work Phone: 04-05-2022 16:06-0400 Systolic blood pressure 127 mm[Hg] No Primary Care Physician [facility] Work Phone: 04-05-2022 11:53-0400 Body temperature 98 [degF] No Primary Care Physician [facility] Work Phone: 04-05-2022 11:50-0400 Body height 167.64 cm No Primary Care Physician [facility] Work Phone: 04-05-2022 11:50-0400 Body mass index (BMI) [Ratio] 34.4 kg/m2 No Primary Care Physician [facility] Work Phone: 04-05-2022 11:50-0400 Body weight 96.8 kg No Primary Care Physician [facility] Work Phone: 03-23-2022 12:28-0400 Body temperature 97 [degF] Sid Bravo MD Work Phone: [facility] 03-23-2022 12:28-0400 Body weight 97.07 kg Sid Bravo MD Work Phone: [facility] 03-23-2022 12:28-0400 Diastolic blood pressure 98 mm[Hg] Sid Bravo MD Work Phone: [facility] 03-23-2022 12:28-0400 Heart rate 105 /min Sid Bravo MD Work Phone: [facility] 03-23-2022 12:28-0400 Respiratory rate 20 /min Sid Bravo MD Work Phone: [facility] 03-23-2022 12:28-0400 SaO2% (BldA) [Mass fraction] 93 % Sid Bravo MD Work Phone: [facility] 03-23-2022 12:28-0400 Systolic blood pressure 130 mm[Hg] Sid Bravo MD Work Phone: [facility] 02-02-2022 09:33-0400 Body temperature 97.2 [degF] Alyssa Yeni [employer] SAFET[employer] PROGRAM COORDINATOR Work Phone: [facility] 02-02-2022 09:33-0400 Body weight 92.53 kg Alyssa Yeni [employer] SAFETY PROGRAM COORDINATOR Work Phone: [facility] 02-02-2022 09:33-0400 Diastolic blood pressure 72 mm[Hg] Alyssa Yeni [employer]TER.[employer] SAFETY PROGRAM COORDINATOR Work Phone: [facility] 02-02-2022 09:33-0400 Heart rate 74 /min Alyssa Yeni [employer]TER.[employer] SAFETY PROGRAM COORDINATOR Work Phone: [facility] 02-02-2022 09:33-0400 Respiratory rate 16 /min Alyssa Yeni [employer]TER.[employer] SAFETY PROGRAM COORDINATOR Work Phone: [facility] 02-02-2022 09:33-0400 SaO2% (BldA) [Mass fraction] 99 % Alyssa Yeni [employer]TER.[employer] SAFETY PROGRAM COORDINATOR Work Phone: [facility] 02-02-2022 09:33-0400 Systolic blood pressure 120 mm[Hg] Alyssa Jaime APRN.[employer] SAFETY PROGRAM COORDINATOR Work Phone: [facility] 02-01-2022 17:18-0400 Diastolic blood pressure 100 mm[Hg] No Primary Care Physician [facility] Work Phone: 02-01-2022 17:18-0400 Heart rate 66 /min No Primary Care Physician [facility] Work Phone: 02-01-2022 17:18-0400 Respiratory rate 18 /min No Primary Care Physician [facility] Work Phone: 02-01-2022 17:18-0400 SaO2% (BldA) [Mass fraction] 97 % No Primary Care Physician [facility] Work Phone: 02-01-2022 17:18-0400 Systolic blood pressure 145 mm[Hg] No Primary Care Physician [facility] Work Phone: 02-01-2022 12:42-0400 Body height 167.64 cm No Primary Care Physician [facility] Work Phone: 02-01-2022 12:42-0400 Body mass index (BMI) [Ratio] 32.3 kg/m2 No Primary Care Physician [facility] Work Phone: 02-01-2022 12:42-0400 Body temperature 96.3 [degF] No Primary Care Physician [facility] Work Phone: 02-01-2022 12:42-0400 Body weight 90.71 kg No Primary Care Physician [facility] Work Phone: 01-26-2022 12:31-0400 Body height 167.64 cm [facility] Work Phone: 01-26-2022 12:31-0400 Body mass index (BMI) [Ratio] 32.6 kg/m2 [facility] Work Phone: 01-26-2022 12:31-0400 Body temperature 98.4 [degF] [facility] Work Phone: 01-26-2022 12:31-0400 Body weight 91.71 kg [facility] Work Phone: 01-26-2022 12:31-0400 Diastolic blood pressure 108 mm[Hg] [facility] Work Phone: 01-26-2022 12:31-0400 Heart rate 94 /min [facility] Work Phone: 01-26-2022 12:31-0400 Respiratory rate 22 /min [facility] Work Phone: 01-26-2022 12:31-0400 SaO2% (BldA) [Mass fraction] 99 % [facility] Work Phone: 01-26-2022 12:31-0400 Systolic blood pressure 154 mm[Hg] [facility] Work Phone: 01-23-2022 18:18-0400 Diastolic blood pressure 74 mm[Hg] [facility] Work Phone: 01-23-2022 18:18-0400 Respiratory rate 18 /min [facility] Work Phone: 01-23-2022 18:18-0400 Systolic blood pressure 122 mm[Hg] [facility] Work Phone: 01-23-2022 16:02-0400 Body height 167.64 cm [facility] Work Phone: 01-23-2022 16:02-0400 Body mass index (BMI) [Ratio] 33.9 kg/m2 [facility] Work Phone: 01-23-2022 16:02-0400 Body temperature 97.6 [degF] [facility] [place] Work Phone: 01-23-2022 16:02-0400 Body weight 95.25 kg [facility] Work Phone: 01-23-2022 16:02-0400 Heart rate 99 /min [facility] Work Phone: 01-23-2022 16:02-0400 SaO2% (BldA) [Mass fraction] 100 % [facility] Work Phone: 01-22-2022 23:45-0400 Heart rate 91 /min [facility] Work Phone: 01-22-2022 23:45-0400 Respiratory rate 16 /min [facility] [place] Work Phone: 01-22-2022 23:45-0400 SaO2% (BldA) [Mass fraction] 98 % [facility] Work Phone: 01-22-2022 21:26-0400 Body height 167.64 cm [facility] Work Phone: 01-22-2022 21:26-0400 Body mass index (BMI) [Ratio] 33.9 kg/m2 [facility] Work Phone: 01-22-2022 21:26-0400 Body temperature 97.8 [degF] [facility] [place] Work Phone: 01-22-2022 21:26-0400 Body weight 95.25 kg [facility] Work Phone: 01-22-2022 21:26-0400 Diastolic blood pressure 97 mm[Hg] [facility] Work Phone: 01-22-2022 21:26-0400 Systolic blood pressure 140 mm[Hg] [facility] Work Phone: 01-16-2022 14:12-0400 Body height 167.64 cm [facility] Work Phone: 01-16-2022 14:12-0400 Body mass index (BMI) [Ratio] 33.9 kg/m2 [facility] Work Phone: 01-16-2022 14:12-0400 Body temperature 96.7 [degF] [facility] [place] Work Phone: 01-16-2022 14:12-0400 Body weight 95.3 kg [facility] Work Phone: 01-16-2022 14:12-0400 Diastolic blood pressure 93 mm[Hg] [facility] Work Phone: 01-16-2022 14:12-0400 Heart rate 130 /min [facility] Work Phone: 01-16-2022 14:12-0400 Respiratory rate 18 /min [facility] [place] Work Phone: 01-16-2022 14:12-0400 SaO2% (BldA) [Mass fraction] 98 % [facility] Work Phone: 01-16-2022 14:12-0400 Systolic blood pressure 126 mm[Hg] [facility] Work Phone: 11-16-2021 10:09-0400 Body temperature 98.3 [degF] [facility] [place] Work Phone: 11-16-2021 10:09-0400 Diastolic blood pressure 82 mm[Hg] [facility] Work Phone: 11-16-2021 10:09-0400 Heart rate 98 /min [facility] Work Phone: 11-16-2021 10:09-0400 Systolic blood pressure 138 mm[Hg] [facility] Work Phone: 11-16-2021 08:39-0400 Body height 167.64 cm [facility] Work Phone: 11-16-2021 08:39-0400 Body mass index (BMI) [Ratio] 34.9 kg/m2 [facility] Work Phone: 11-16-2021 08:39-0400 Body weight 98.33 kg [facility] Work Phone: 11-16-2021 08:39-0400 Respiratory rate 16 /min [facility] [place] Work Phone: 11-16-2021 08:39-0400 SaO2% (BldA) [Mass fraction] 96 % [facility] Work Phone: 10-29-2021 12:09-0400 Diastolic blood pressure 69 mm[Hg] [facility] Work Phone: 10-29-2021 12:09-0400 Heart rate 71 /min [facility] Work Phone: 10-29-2021 12:09-0400 Respiratory rate 15 /min [facility] [place] Work Phone: 10-29-2021 12:09-0400 SaO2% (BldA) [Mass fraction] 98 % [facility] Work Phone: 10-29-2021 12:09-0400 Systolic blood pressure 124 mm[Hg] [facility] Work Phone: 10-29-2021 08:59-0400 Body height 167.64 cm [facility] Work Phone: 10-29-2021 08:59-0400 Body mass index (BMI) [Ratio] 34.6 kg/m2 [facility] Work Phone: 10-29-2021 08:59-0400 Body temperature 96.9 [degF] [facility] [place] Work Phone: 10-29-2021 08:59-0400 Body weight 97.4 kg [facility] Work Phone: 10-24-2021 08:30-0400 Body temperature 97.3 [degF] [facility] [place] Work Phone: 10-24-2021 08:30-0400 Diastolic blood pressure 92 mm[Hg] [facility] Work Phone: 10-24-2021 08:30-0400 Heart rate 98 /min [facility] Work Phone: 10-24-2021 08:30-0400 Respiratory rate 16 /min [facility] [place] Work Phone: 10-24-2021 08:30-0400 SaO2% (BldA) [Mass fraction] 100 % [facility] Work Phone: 10-24-2021 08:30-0400 Systolic blood pressure 148 mm[Hg] [facility] Work Phone: 10-24-2021 08:18-0400 Body height 167.64 cm [facility] Work Phone: 10-24-2021 08:18-0400 Body mass index (BMI) [Ratio] 33.7 kg/m2 [facility] Work Phone: 10-24-2021 08:18-0400 Body weight 95 kg [facility] Work Phone: 08-10-2021 23:58-0500 Heart rate 107 /min [facility] Work Phone: 08-10-2021 23:58-0500 Respiratory rate 18 /min [facility] [place] Work Phone: 08-10-2021 23:58-0500 SaO2% (BldA) [Mass fraction] 100 % [facility] Work Phone: 08-10-2021 22:57-0500 Diastolic blood pressure 88 mm[Hg] [facility] Work Phone: 08-10-2021 22:57-0500 Systolic blood pressure 125 mm[Hg] [facility] Work Phone: 08-10-2021 21:32-0500 Body mass index (BMI) [Ratio] 35.5 kg/m2 [facility] Work Phone: 08-10-2021 21:32-0500 Body temperature 97.6 [degF] [facility] [place] Work Phone: 08-10-2021 21:32-0500 Body weight 99.79 kg [facility] Work Phone: Encounters Encounter Date Encounter Type Care Provider Facility Start: 02-15-2025 ambulatory Amy Florezl in [facility] Facility:[facility] Start: 01-11-2025 ambulatory Amy Radford in [facility] Facility:[facility] Start: 01-07-2025 Emergency department patient visit Fabricio Guevara Facility:[facility] Start: 01-04-2025 End: 01-04-2025 Amy Solorzano [employer]ADE [employer]IST[employer]C Work Phone: -Emergency Department Work Phone: Start: 01-04-2025 End: 01-04-2025 Emergency department patient visit Amy Solorzano TRADE SPECIALIST-C Work Phone: [facility] Work Phone: Start: 01-02-2025 End: 01-02-2025 Amy Solorzano TRADE SPECIALIST-C Work Phone: -Emergency Department Work Phone: Start: 01-02-2025 End: 01-02-2025 Emergency department patient visit Amy Solorzano TRADE SPECIALIST-C Work Phone: [facility] Work Phone: Start: 01-01-2025 Dr. Frantz Coulter DO -[place] [facility] Work Phone: Start: 12-31-2024 ambulatory Amy Florezl in [facility] Facility:[facility] Start: 12-31-2024 End: 01-01-2025 Evaluation and management of inpatient Amy Solorzano TRADE SPECIALIST-C Work Phone: [facility] Work Phone: Start: 12-31-2024 End: 01-01-2025 Dr. Dewayne Grant DO -Intensive Care Unit Work Phone: Start: 12-31-2024 Dr. David Hernandez and -[facility] Work Phone: Start: 12-30-2024 Non-patient / Non-visit Dr. Dwaine Bain MD -[place] [facility] Work Phone: Start: 12-30-2024 ambulatory Amy Radford in [facility] Facility:[facility] Start: 12-30-2024 End: 12-31-2024 Evaluation and management of inpatient Dr. David Bain MD -Intensive Care Unit Work Phone: Start: 12-30-2024 End: 12-31-2024 Dr. David Bain MD -Intensive Care Unit Work Phone: Start: 12-25-2024 End: 12-25-2024 ambulatory Amy Solorzano TRADE SPECIALIST-C Work Phone: [facility] Work Phone: Start: 12-25-2024 End: 12-25-2024 Patient encounter procedure Nayana Peter PA -Ultrasound [facility] Work Phone: Start: 12-25-2024 End: 12-25-2024 Nayana Peter PA -Ultrasound [facility] Work Phone: Start: 12-25-2024 End: 12-25-2024 ambulatory Kalee Peter Facility:[facility] Start: 12-13-2024 End: 12-13-2024 ambulatory Amy Solorzano TRADE SPECIALIST-C Work Phone: [facility] Work Phone: Start: 12-13-2024 End: 12-13-2024 Patient encounter procedure Nayana Peter PA -Laboratory Work Phone: Start: 12-13-2024 End: 12-13-2024 Nayana Peter PA -Laboratory Work Phone: Start: 12-13-2024 End: 12-13-2024 Patient encounter procedure Nayana GRADY -[facility] Work Phone: Start: 12-13-2024 End: 12-13-2024 Nayana GRADY -[facility] Work Phone: Start: 12-13-2024 End: 12-13-2024 ambulatory Amy Solorzano TRADE SPECIALIST-C Work Phone: [facility] Work Phone: Start: 12-13-2024 End: 12-13-2024 ambulatory Amykeiko Solorzano [facility] Facility:[facility] Start: 11-28-2024 Non-patient / Non-visit Dr. Gale Lr DO [facility] Work Phone: Start: 11-28-2024 Dr. Gale Lr DO [facility] Work Phone: Start: 11-28-2024 Non-patient / Non-visit Clare GRADY-C -[facility] Start: 11-28-2024 Clare jauregui PA-C -[facility] Start: 11-27-2024 Non-patient / Non-visit Clare GRADY-C -[facility] Start: 11-27-2024 Clare jauregui PA-C -[facility] Start: 11-26-2024 Non-patient / Non-visit Dr. Clair Rao MD -[facility] [facility] Work Phone: Start: 11-26-2024 Dr. Brenda alcocer MD -[facility] [facility] Work Phone: Start: 11-26-2024 [facility] Start: 11-26-2024 [facility] Start: 11-25-2024 Non-patient / [facility] Start: 11-25-2024 Dr. Annalise Welch MD [facility] Start: 11-25-2024 ambulatory Brenda Rao Facility :[facility] Start: 11-25-2024 End: 11-28-2024 Evaluation and management of inpatient Dr. Brenda Rao MD -Medical Surgical 3 Work Phone: Start: 11-25-2024 End: 11-28-2024 Dr. Gale Lr DO -Medical Surgical 3 Work Phone: Start: 10-26-2024 ambulatory Amy Gautamnay in [facility] Facility:[facility] Start: 10-25-2024 End: 10-25-2024 ambulatory [facility] TRADE SPECIALIST-C Work Phone: [facility] Work Phone: Start: 10-25-2024 End: 10-25-[address] Abdirizak Forrest DPM -Cardiovascular Services Work Phone: Start: 10-25-2024 End: 10-25-2024 Dr. Abdirizak Forrest DP -Cardiovascular Services Work Phone: Start: 10-25-2024 End: 10-25-2024 ambulatory [facility] Facility:[facility] Start: 10-17-2024 End: 10-17-[address] [facility] TRADE SPECIALIST-C Work Phone: [facility] Work Phone: Start: 10-17-2024 End: 10-17-2024 Patient encounter procedure [facility] Amykeiko Solorzano TRADE SPECIALIST-C -Laboratory, Sophy Gibbons Start: 10-17-2024 End: 10-17-2024 [facility] Amy Rashad TRADE SPECIALIST-C -Laboratory Sophy Gibbons Start: 10-17-2024 End: 10-17-2024 [facility] Facility:[facility] Start: 07-03-2024 End: 07-03-2024 Patient encounter procedure Irais GRADY Work Phone: [facility] Comment on above: Acute cough (Primary Dx) Start: 07-03-2024 End: 07-03-2024 ambulatory [facility] Facility:[facility] Start: 07-03-2024 End: 07-03-2024 Subsequent hospital visit by physician Xr [facility] Work Phone: Radiology Comment on above: Acute cough [R05.1] Start: 06-26-2024 End: 06-26-2024 [facility] Facility:[facility] Start: 06-26-2024 End: 06-26-2024 Office outpatient visit 25 minutes Frantz Arevalo PA-C Work Phone: [facility] Comment on above: Bronchopneumonia (Pr imary Dx); Mild intermittent asthma, uncomplicated Start: 04-25-2024 End: 04-25-2024 ambulatory Amy Solorzano [facility] Facility:[facility] Start: 11-08-2023 End: 11-08-2023 ambulatory [facility] Work Phone: Start: 11-08-2023 End: 11-08-2023 Patient encounter procedure [facility] Work Phone: Start: 07-23-2023 End: 07-23-2023 Admission to same day surgery center [facility] Start: 07-23-2023 End: 07-23-2023 ambulatory No Primary Care Physician [facility] Work Phone: Start: 07-23-2023 End: 07-23-2023 No Primary Care Physician [facility]-S[facility] Day Care Start: 07-12-2023 End: 07-12-2023 No Primary Care Physician [facility]-Emergency Department Work Phone: Start: 07-02-2023 End: 07-02-2023 Emergency department patient visit No Primary Care Physician [facility] Work Phone: Start: 07-02-2023 End: 07-02-2023 No Primary Care Physician [facility]-Emergency Department Work Phone: Start: 07-01-2023 End: 07-01-2023 Office outpatient visit 15 minutes Andres Galaviz APRN.[facility] Work Phone: [facility] Comment on above: Pain of right eye (P rimary Dx) Start: 06-30-2023 End: 06-30-2023 No Primary Care Physician [facility]-Emergency Department Work Phone: Start: 06-28-2023 End: 06-28-2023 Emergency department patient visit No Primary Care Physician [facility]-Emergency Department Work Phone: Start: 06-28-2023 End: 06-28-2023 No Primary Care Physician [facility]-Emergency Department Work Phone: Start: 06-27-2023 End: 06-27-2023 Emergency department patient visit No Primary Care Physician [facility]-Emergency Department Work Phone: Start: 06-27-2023 End: 06-27-2023 No Primary Care Physician [facility]-Emergency Department Work Phone: Start: 06-26-2023 End: 06-26-2023 Emergency department patient visit No Primary Care Physician [facility]-Emergency Department Work Phone: Start: 06-26-2023 End: 06-26-2023 No Primary Care Physician [facility]-Emergency Department Work Phone: Start: 06-25-2023 End: 06-25-2023 Emergency department patient visit No Primary Care Physician [facility]-Emergency Department Work Phone: Start: 06-25-2023 End: 06-25-2023 No Primary Care Physician [facility]-Emergency Department Work Phone: Start: 05-18-2023 End: 05-18-2023 ambulatory No Primary Care Physician [facility] Work Phone: Start: 05-18-2023 End: 05-18-2023 Patient encounter procedure No Primary Care Physician [facility]-Laboratory, Specimen Work Phone: Start: 05-18-2023 End: 05-18-2023 No Primary Care Physician [facility]-Laboratory, Specimen Work Phone: Start: 05-09-2023 Non-patient / Non-visit No [facility] Physician [facility] [facility] Work Phone: Start: 05-09-2023 [facility] Work Phone: [facility] Inpatient Physicians Work Phone: Start: 05-08-2023 Non-patient / Non-visit No [facility] Physician [facility] [facility] Work Phone: Start: 05-08-2023 [facility] Work Phone: [facility] [facility] Work Phone: Start: 05-07-2023 Non-patient / Non-visit No Kristina Woo Physician [facility] [facility] Work Phone: Start: 05-07-2023 [facility] Work Phone: [facility] Work Phone: Start: 05-06-2023 Non-patient / Non-visit No Kristina Woo Physician [facility] [facility] Work Phone: Start: 05-06-2023 [facility] Work Phone: [facility] [facility] Work Phone: Start: 05-05-2023 Non-patient / Non-visit No Kristina Woo Physician [facility] Work Phone: Start: 05-05-2023 [facility] Work Phone: [facility] Work Phone: Start: 05-04-2023 End: 05-09-2023 Evaluation and management of inpatient [facility] Work Phone: [facility] Work Phone: Start: 05-04-2023 End: 05-09-2023 [facility] Work Phone: [facility]-Medical Surgical 3 Work Phone: Start: 05-04-2023 ambulatory [facility] Work Phone: [facility] Work Phone: Start: 05-04-2023 [facility] Work Phone: [facility]-[employer] Inpatients Work Phone: Start: 05-04-2023 Non-patient / Non-visit No Kristina Woo Physician [facility] [facility] Work Phone: Start: 05-04-2023 [facility] Work Phone: [facility] [facility] Work Phone: Start: 04-15-2023 End: 04-15-2023 Emergency department [facility] Start: 04-15-2023 End: 04-15-2023 [facility] Work [facility] Start: 04-15-2023 End: 04-15-2023 Patient encounter procedure Abdirizak Peña BURIAL VA[employer] SETTER.[employer] SAFETY PROGRAM COORDINATOR Work Phone: [facility] Comment on above: SOB (shortness of br eath) (Primary Dx); Abdominal pain, unspecified abdominal location Start: 04-14-2023 End: 04-14-2023 Emergency department patient visit No [facility] Start: 04-14-2023 End: 04-14-2023 [facility] Work [facility] Start: 04-13-2023 End: 04-13-2023 Emergency department patient visit No [facility] Work [facility] Start: 04-13-2023 End: 04-13-2023 [facility] Work [facility] Start: 03-26-2023 ambulatory No Pcp B[employer] VA[employer] SETTER George Ruiz NJOY Start: 03-12-2023 Orders Only Pilar holm B[employer]IAL VA[employer] SETTER.[employer] SAFETY PROGRAM COORDINATOR Work Phone: [facility] [place] Comment on above: Chronic abdominal pa in (Primary Dx) Start: 03-10-2023 Telephone encounter Amy redding TRADE SPECIALIST Work Phone: NOC Comment on above: Follow Up (Post Disc harge F/U - 1st attempt made. No answer./) Start: 03-09-2023 Telephone encounter Pilar barrios BURIAL VAULT SETTER.[employer] SAFETY PROGRAM COORDINATOR Work Phone: [facility] [place] Comment on above: Consult Start: 03-06-2023 End: 03-06-2023 Emergency department patient visit [facility] Work Phone: [facility] Work Phone: Start: 03-06-2023 End: 03-06-2023 [facility] Work Phone: [facility]-Emergency Department Work Phone: Start: 03-02-2023 ambulatory No Pcp B[employer]IAL VA[employer] SETTER George Ruiz [employer] Start: 03-02-2023 Telephone encounter Almita lara PA-C Work Phone: [facility] Provider Adult Comment on above: Appointment Start: 03-01-2023 End: 03-04-2023 Evaluation and management of inpatient [facility] Facility:[facility] Start: 03-01-2023 End: 03-01-2023 Patient encounter procedure Dewayne Doran MD Work Phone: Gastroenterology Comment on above: Vomiting, unspecifie d vomiting type, unspecified whether nausea present (Primary Dx); Chronic nausea Start: 02-25-2023 End: 02-26-2023 Emergency department patient visit [facility] Work Phone: [facility] Work Phone: Start: 02-25-2023 End: 02-26-2023 [facility] Work Phone: [facility]-Emergency Department Work Phone: Start: 02-24-2023 End: 02-24-2023 Emergency department patient visit No Primary Care Physician [facility]-Emergency Department Work Phone: Start: 02-24-2023 End: 02-24-2023 [facility] Work Phone: [facility]-Emergency Department Work Phone: Start: 02-23-2023 End: 02-23-2023 Patient encounter procedure Pilar Magdaleno B[employer]IAL VA[employer] SETTER.[employer] SAFETY PROGRAM COORDINATOR Work Phone: [facility] [place] Comment on above: Chronic nausea (Prim crystal Dx); Chronic abdominal pain Start: 02-17-2023 End: 02-18-2023 Emergency department patient visit DEWAYNE KIM INES [facility] Start: 02-11-2023 End: 02-11-2023 ambulatory GERALDINE SILVA DO Facility:[facility] Start: 02-10-2023 End: 02-11-2023 Observation HELENA SILVERMAN APRN-AUTO [employer] SAFETY PROGRAM COORDINATOR [facility] Start: 02-08-2023 End: 02-08-2023 Emergency department patient visit [facility] Work Phone: [facility]-Emergency Department Work Phone: Start: 02-08-2023 End: 02-08-2023 [facility] Work Phone: [facility]-Emergency Department Work Phone: Start: 02-04-2023 End: 02-04-2023 Patient encounter procedure Irais GRADY Work Phone: [facility] Comment on above: Generalized abdomina l pain (Primary Dx) Start: 02-04-2023 End: 02-04-2023 Emergency department patient visit [facility] Work Phone: [facility]-Emergency Department Work Phone: Start: 02-04-2023 End: 02-04-2023 [facility] Work Phone: [facility]-Emergency Department Work Phone: Start: 01-25-2023 End: 01-25-2023 Emergency department patient visit [facility] Work Phone: [facility]-Emergency Department Work Phone: Start: 01-25-2023 End: 01-25-2023 [facility] Start: 01-24-2023 End: 01-24-2023 Emergency department patient visit ABDIRIZAK RAMIREZ [facility] Start: 01-24-2023 End: 01-24-2023 Emergency department patient visit Abdirizak Ramirez MD Work Phone: [facility] Comment on above: Nausea and vomiting, unspecified vomiting type (Primary Dx); Syncope and collapse Start: 01-17-2023 End: 01-17-2023 Emergency department patient visit GERALDINE ROLAND [facility] Start: 01-15-2023 Non-patient / Non-visit [facility] Work Phone: [facility] [facility] Work Phone: Start: 01-15-2023 [facility] Work Phone: [facility] Inpatient Physicians Work Phone: Start: 01-14-2023 End: 01-15-2023 Evaluation and management of inpatient [facility] Work Phone: [facility] Surgical 3 Work Phone: Start: 01-14-2023 End: 01-15-2023 observation encounter [facility] Work Phone: [facility] Work Phone: Start: 01-14-2023 End: 01-15-2023 [facility] Work Phone: [facility] Surgical 3 Work Phone: Start: 01-13-2023 End: 01-13-2023 Emergency department patient visit [facility] Work Phone: [facility]-Emergency Department Work Phone: Start: 01-13-2023 End: 01-13-2023 [facility] Work Phone: [facility]-Emergency Department Work Phone: Start: 01-12-2023 End: 01-12-2023 Emergency department patient visit [facility]-Emergency Department Work Phone: Start: 01-12-2023 End: 01-12-2023 [facility] Work Phone: [facility]-Emergency Department Work Phone: Start: 01-11-2023 End: 01-12-2023 Emergency department patient visit [facility]-Emergency Department Work Phone: Start: 01-11-2023 End: 01-12-2023 [facility] Work Phone: [facility]-Emergency Department Work Phone: Start: 01-10-2023 End: 01-10-2023 [facility] Start: 01-10-2023 End: 01-10-2023 [facility] Start: 01-09-2023 End: 01-09-2023 Emergency department patient visit [facility]-Emergency Department Work Phone: Start: 01-09-2023 End: 01-09-2023 [facility] Work Phone: [facility]-Emergency Department Work Phone: Start: 01-07-2023 End: 01-07-2023 Emergency department patient visit [facility]-Emergency Department Work Phone: Start: 01-07-2023 End: 01-07-2023 [facility]: [facility] System-Emergency Department Work Phone: Start: 11-25-2022 End: 11-25-2022 ambulatory [facility] Work Phone: [facility] Work Phone: Start: 11-25-2022 End: 11-25-2022 Patient encounter procedure [facility] Work Phone: Start: 11-25-2022 End: 11-25-2022 [facility] Start: 11-19-2022 End: 11-19-2022 Emergency department patient visit [facility] Work Phone: Start: 11-19-2022 End: 11-19-2022 [facility] Work Phone: [facility] Work Phone: Start: 11-17-2022 End: 11-17-2022 Office outpatient visit 25 minutes Andres Galaviz APRN.CNP Work Phone: [facility] Comment on above: Facial infection (Pr imary Dx) Start: 10-11-2022 Telephone encounter Irais GRADY Work Phone: [facility] Comment on above: Results Start: 10-08-2022 End: 10-08-2022 Patient encounter procedure Shamika Goins PA-C Work Phone: [facility] Comment on above: Toe infection (Prima ry Dx); Facial infection; History of MRSA infection Start: 08-14-2022 Non-patient / Non-visit Dr. Jessica Gibbons Work Phone: [facility] Start: 08-13-2022 Non-patient / Non-visit Dr. Jessica Gibbons Work Phone: [facility] Start: 08-12-2022 Non-patient / Non-visit Dr. Jessica Gibbons Work Phone: [facility] Start: 08-12-2022 End: 08-15-2022 Evaluation and management of inpatient Dr. Sophy Gibbons Work Phone: [facility] Start: 06-29-2022 Non-patient / Non-visit No Kristina Woo Physician [facility] Start: 06-28-2022 Non-patient / Non-visit No Kristina Woo Physician [facility] Start: 06-27-2022 Non-patient / Non-visit No Kristina cormier Care Physician [facility] Start: 06-26-2022 Non-patient / Non-visit No Kristina cormier Care Physician [facility] Start: 06-25-2022 Non-patient / Non-visit No Kristina cormier Care Physician [facility] Start: 06-24-2022 End: 06-29-2022 Evaluation and management of inpatient No Primary Care Physician [facility] 3 Start: 06-23-2022 End: 06-23-2022 ambulatory No Primary Care Physician [facility] Work Phone: Start: 06-23-2022 End: 06-23-2022 Patient encounter procedure No Primary Care Physician [facility], Specimen Start: 05-07-2022 End: 05-07-2022 ambulatory No Primary Care Physician [facility] Work Phone: Start: 05-07-2022 End: 05-07-2022 Patient encounter procedure No Primary Care Physician [facility] Start: 04-20-2022 End: 04-20-2022 ambulatory No Primary Care Physician [facility] Work Phone: Start: 04-20-2022 End: 04-20-2022 Departed Referred No Primary Care Physician [facility] Start: 04-20-2022 Registered Referred No Primary Care Physician [facility] Start: 04-13-2022 End: 04-13-2022 ambulatory No Primary Care Physician [facility] Work Phone: Start: 04-13-2022 End: 04-13-2022 Departed Referred No Primary Care Physician [facility] 100/200 Start: 04-13-2022 Registered Referred No Primary Care Physician [facility] Start: 04-10-2022 End: 04-10-2022 ambulatory No Primary Care Physician [facility] Work Phone: Start: 04-10-2022 End: 04-10-2022 Departed Referred No Primary Care Physician [facility] 100/200 Start: 04-09-2022 Non-patient / Non-visit No Kristina cormier Care Physician [facility] Start: 04-08-2022 Non-patient / Non-visit No Kristina cormier Care Physician [facility] Start: 04-07-2022 Non-patient / Non-visit No Kristina cormier Care Physician [facility] Start: 04-06-2022 Non-patient / Non-visit No Kristina cormier Care Physician [facility] Start: 04-06-2022 End: 04-09-2022 Evaluation and management of inpatient No Primary Care Physician [facility] 3 Start: 04-05-2022 End: 04-05-2022 Emergency department patient visit No Primary Care Physician [facility] Start: 03-23-2022 End: 03-23-2022 Subsequent hospital visit by physician [facility] Work Phone: Radiology Comment on above: Acute cough [R05.1] Start: 03-23-2022 End: 03-23-2022 Patient encounter procedure Sid Bravo MD Work Phone: [facility] Comment on above: Acute cough (Primary Dx); Mild intermittent asthmatic bronchitis without complication Start: 02-16-2022 End: 02-16-2022 Patient encounter procedure No Primary Care Physician [facility] Start: 02-02-2022 End: 02-02-2022 Patient encounter procedure Alyssa Jaime APRN.CNP Work Phone: [facility] Comment on above: Abnormal lung scan ( Primary Dx); Nausea and vomiting, unspecified vomiting type Start: 02-01-2022 End: 02-01-2022 Emergency department patient visit No Primary Care Physician [facility] Start: 01-30-2022 End: 01-30-2022 Patient encounter procedure No Primary Care Physician [facility] Start: 01-30-2022 End: 01-30-2022 Patient encounter procedure No Primary Care Physician [facility] Start: 01-26-2022 End: 01-26-2022 Emergency department patient visit [facility] Start: 01-23-2022 End: 01-23-2022 [facility] Start: 01-22-2022 End: 01-22-2022 [facility] Start: 01-16-2022 End: 01-16-2022 [facility] Start: 11-16-2021 End: 11-16-2021 [facility] Start: 10-29-2021 End: 10-29-2021 [facility] Start: 10-24-2021 End: 10-24-2021 [facility] Start: 08-10-2021 End: 08-11-2021 [facility] Start: 05-15-2021 End: 05-15-2021 Subsequent hospital visit by physician [facility] Work Phone: Radiology Comment on above: Cough [R05.9] Procedures Date Procedure Procedure Detail Performing Clinician Start: 01-04-2025 Computed tomography of abdomen and pelvis with intravenous contrast Amy Rashad TRADE SPECIALIST-C Work Phone: Start: 01-04-2025 Benzodiazepine measu rement, urine Amy Rashad [employer]IST-C Work Phone: Start: 01-04-2025 Cocaine measurement, urine Amy Rashad [employer]ADE [employer]IST-C Work Phone: Start: 01-04-2025 Methadone measurement, urine Amy Rashad [employer]ADE [employer]IST-C Work Phone: Start: 01-04-2025 Urine cannabinoid measurement Amy Rashad [employer]ADE [employer]IST-C Work Phone: Start: 01-04-2025 Urine opiate measurement Amy Rashad [employer]ADE [employer]IST-C Work Phone: Start: 01-04-2025 Venous oxygen satura tion measurement Amy Rashad TRADE SPECIALIST-C Work Phone: Start: 01-04-2025 Blood count smear mc rscp w/mnl difrntl wbc count Amy Rashad TRADE SPECIALIST-C Work Phone: Start: 01-04-2025 Estimated creatinine clearance Amy Solorzano [employer]ADE SPECIALIST-C Work Phone: Start: 01-04-2025 Mean corpuscular hem oglobin concentration determination Amy Solorzano TRADE SPECIALIST-C Work Phone: Start: 01-04-2025 Nucleated red blood cell count procedure Amy Solorzano TRADE SPECIALIST-C Work Phone: Start: 01-04-2025 Osmolality measureme nt, serum Amy Solorzano [employer]IST-C Work Phone: Start: 01-04-2025 Platelet mean volume determination Amy Solorzano TRADE SPECIALIST-C Work Phone: Start: 01-04-2025 Triacylglycerol lipa se measurement Amy Solorzano TRADE SPECIALIST-C Work Phone: Start: 01-02-2025 Blood count smear mc rscp w/mnl difrntl wbc count Amy Solorzano TRADE SPECIALIST-C Work Phone: Start: 01-02-2025 Estimated creatinine clearance Amy Solorzano TRADE SPECIALIST-C Work Phone: Start: 01-02-2025 Mean corpuscular hem oglobin concentration determination Amy Solorzano TRADE SPECIALIST-C Work Phone: Start: 01-02-2025 Nucleated red blood cell count procedure Amy Solorzano TRADE SPECIALIST-C Work Phone: Start: 01-02-2025 Platelet mean volume determination Amy Solorzano TRADE SPECIALIST-C Work Phone: Start: 01-02-2025 Triacylglycerol lipa se measurement Amy Solorzano TRADE SPECIALIST-C Work Phone: Start: 01-01-2025 Estimated creatinine clearance Amy Solorzano TRADE SPECIALIST-C Work Phone: Start: 01-01-2025 Oxygen measurement Mirian Solorzano TRADE SPECIALIST-C Work Phone: Start: 01-01-2025 Venous oxygen satura tion measurement Amy Solorzano TRADE SPECIALIST-C Work Phone: Start: 12-31-2024 Estimated creatinine clearance Amy Solorzano TRADE SPECIALIST-C Work Phone: Start: 12-31-2024 Venous oxygen satura tion measurement Amy Solorzano TRADE SPECIALIST-C Work Phone: Start: 12-31-2024 Blood count smear mc rscp w/mnl difrntl wbc count Amy Solorzano TRADE SPECIALIST-C Work Phone: Start: 12-31-2024 Mean corpuscular hem oglobin concentration determination Amy Solorzano TRADE SPECIALIST-C Work Phone: Start: 12-31-2024 Nucleated red blood cell count procedure Amy Solorzano TRADE SPECIALIST-C Work Phone: Start: 12-31-2024 Platelet mean volume determination Amy Solorzano TRADE SPECIALIST-C Work Phone: Start: 12-31-2024 Urine microscopy: red cells Amy Solorzano TRADE SPECIALIST-C Work Phone: Start: 12-31-2024 Urnls dip stick/tabl et reagent auto microscopy Amy Solorzano TRADE SPECIALIST-C Work Phone: Start: 12-31-2024 Estimated creatinine clearance Amy Solorzano TRADE SPECIALIST-C Work Phone: Start: 12-30-2024 Venous oxygen satura tion measurement Amy Solorzano TRADE SPECIALIST-C Work Phone: Start: 12-30-2024 Urine culture Amy kim TRADE SPECIALIST-C Work Phone: Start: 12-30-2024 Benzodiazepine measu rement, urine Amy Solorzano [employer]ADE SPECIALIST-C Work Phone: Start: 12-30-2024 Cocaine measurement, urine Amy Solorzano TRADE SPECIALIST-C Work Phone: Start: 12-30-2024 Methadone measurement, urine Amy Solorzano TRADE SPECIALIST-C Work Phone: Start: 12-30-2024 Urine cannabinoid measurement Amy Solorzano TRADE SPECIALIST-C Work Phone: Start: 12-30-2024 Urine microscopy: red cells Amy Solorzano TRADE SPECIALIST-C Work Phone: Start: 12-30-2024 Urine opiate measurement Amy Solorzano [employer]ADE SPECIALIST-C Work Phone: Start: 12-30-2024 Urnls dip stick/tabl et reagent auto microscopy Amy TINAJEROC Work Phone: Start: 12-30-2024 Blood count smear mc rscp w/mnl difrntl wbc count Amy TINAJEROC Work Phone: Start: 12-30-2024 Estimated creatinine clearance Amy TINAJEROC Work Phone: Start: 12-30-2024 Mean corpuscular hem oglobin concentration determination Amy TINAJEROC Work Phone: Start: 12-30-2024 Nucleated red blood cell count procedure Amy TINAJEROC Work Phone: Start: 12-30-2024 Osmolality measureme nt, serum Amy IBRAHIM Work Phone: Start: 12-30-2024 Platelet mean volume determination Amy TINAJEROC Work Phone: Start: 12-30-2024 Serum inorganic phos phate measurement Amy TINAJEROC Work Phone: Start: 12-30-2024 Triacylglycerol lipa se measurement Amy Solorzano NP-C Work Phone: Start: 12-25-2024 Ultrasonography of abdomen Amy IBRAHIM Work Phone: Start: 12-13-2024 Blood count smear mc rscp w/mnl difrntl wbc count Amy Solorzano NP-C Work Phone: Start: 12-13-2024 Mean corpuscular hem oglobin concentration determination Amy Solorzano NP-C Work Phone: Start: 12-13-2024 Nucleated red blood cell count procedure Amy IBRAHIM Work Phone: Start: 12-13-2024 Platelet mean volume determination Amy IBRAHIM Work Phone: Start: 11-28-2024 Blood count smear mc rscp w/mnl difrntl wbc count Amy Solorzano NP-Sara Work Phone: Start: 11-28-2024 Estimated creatinine clearance Amy Solorzano [employer]ADE [employer]IST-C Work Phone: Start: 11-28-2024 Mean corpuscular hem oglobin concentration determination Amy Solorzano TRADE SPECIALIST-C Work Phone: Start: 11-28-2024 Nucleated red blood cell count procedure Amy Solorzano TRADE SPECIALIST-C Work Phone: Start: 11-28-2024 Platelet mean volume determination Amy Solorzano TRADE SPECIALIST-C Work Phone: Start: 11-27-2024 Computed tomography of abdomen and pelvis with contrast Amy Solorzano TRADE SPECIALIST-C Work Phone: Start: 11-26-2024 Plain X-ray abdomen Glendy Solorzano TRADE SPECIALIST-C Work Phone: Start: 11-25-2024 Blood culture Amy kim [employer]ADE SPECIALIST-C Work Phone: Start: 11-25-2024 Assay of lactate Manjinder Solorzano TRADE SPECIALIST-C Work Phone: Start: 11-25-2024 Computed tomography of abdomen and pelvis with intravenous contrast Amy Solorzano TRADE SPECIALIST-C Work Phone: Start: 11-25-2024 Urine microscopy: red cells Amy Solorzano TRADE SPECIALIST-C Work Phone: Start: 11-25-2024 Urnls dip stick/tabl et reagent auto microscopy Amy Solorzano TRADE SPECIALIST-C Work Phone: Start: 11-25-2024 Plain X-ray abdomen Glendy Solorzano TRADE SPECIALIST-C Work Phone: Start: 11-25-2024 Estimated creatinine clearance Amy Solorzano TRADE SPECIALIST-C Work Phone: Start: 10-17-2024 Blood count smear mc rscp w/mnl difrntl wbc count Amy Solorzano TRADE SPECIALIST-C Work Phone: Start: 10-17-2024 Mean corpuscular hem oglobin concentration determination Amy Solorzano TRADE SPECIALIST-C Work Phone: Start: 10-17-2024 Nucleated red blood cell count procedure Amy Solorzano TRADE SPECIALIST-C Work Phone: Start: 10-17-2024 Platelet mean volume determination Amy Solorzano TRADE SPECIALIST-C Work Phone: Start: 10-17-2024 Total cholesterol:HD L ratio measurement Amy Solorzano TRADE SPECIALIST-C Work Phone: Start: 10-17-2024 Vitamin D, 25-hydrox y measurement Amy Solorzano TRADE SPECIALIST-C Work Phone: Comment on above: Vitamin D [...] Care Physician Start: 05-18-2023 Mycology culture No [facility] Physician Start: 05-08-2023 Plain X-ray abdomen [facility] Work Phone: Start: 05-07-2023 Incision and drainag e of abscess [facility] Work Phone: Start: 05-04-2023 MRI of lower extremity [facility] Work Phone: Start: 05-04-2023 Incision and drainag e of abscess [facility] Work Phone: Start: 05-04-2023 Anaerobic microbial culture No Primary Care Physician Start: 05-04-2023 Bacteria identified in Blood by Culture No Primary Care Physician Start: 05-04-2023 Fungus stain method No Primary Care Physician Start: 05-04-2023 Investigation of tra nsfusion reaction [facility] Work Phone: Start: 05-04-2023 Microbial culture, routine [facility] Work Phone: Start: 05-04-2023 Mycology culture No [facility] Physician Start: 05-04-2023 [facility] Work Phone: Start: 05-04-2023 X-ray of both feet [facility] Work Phone: Start: 03-06-2023 Computed tomography of abdomen and pelvis with contrast [facility] Work Phone: Start: 03-06-2023 X-ray of both feet [facility] Work Phone: Start: 02-26-2023 Computed tomography of abdomen and pelvis with intravenous contrast [facility] Work Phone: Start: 02-24-2023 Plain X-ray of toe [facility] Work Phone: Start: 02-17-2023 Urinalysis DEWAYNE Mendoza Comment on above: Result Comment: URIN ALYSIS Performed By: [id number] #### [facility],[address] [place] [address] Start: 02-08-2023 Computed tomography of abdomen and pelvis with contrast [facility] Work Phone: Start: 01-24-2023 Ecg routine [...] Comment: URIN ALYSIS Performed By: [id number] #### [facility],[address] [place] [address] Start: 01-14-2023 Urine culture [facility] Work Phone: Start: 01-14-2023 Computed tomography of abdomen and pelvis with intravenous contrast [facility] Work Phone: Start: 08-12-2022 US urinary [...] Radiologic exam ches t 2 views Andres Anastacia [employer]TER.[employer]AF[employer] PROGRAM COORDINATOR Work Phone: Acid fast bacilli culture [...] of 2) Zoster Vaccines (1 of 2) [facility] Start: 01-04-2025 [facility] Start: 01-02-2025 [facility] Start: 01-01-2025 Patient discharge [facility] Start: 01-01-2025 [facility] Start: 12-31-2024 End: 01-01-2025 [facility] Start: 12-31-2024 Application of intermittent pneumatic compression device [facility] Start: 12-31-2024 End: 12-31-2024 Following clinical pathway protocol [facility] Start: 12-31-2024 Lab findings surveillance [facility] Start: 12-31-2024 Notification of physician [facility] Start: 12-31-2024 Patient education [facility] Start: 12-31-2024 Patient referral to dietitian [facility] Start: 12-31-2024 Vital signs measurements [facility] Start: 12-31-2024 Admission procedure [facility] Start: 12-31-2024 Thyroid stimulating hormone measurement [facility] Start: 12-31-2024 Hospital admission, emergency, from emergency room, medical nature [facility] Start: 12-31-2024 Urine test [facility] Start: 12-31-2024 Following clinical pathway protocol [facility] Start: 12-31-2024 Patient discharge [facility] Start: 12-30-2024 [facility] Start: 12-30-2024 Bacteria identified in Urine by Culture Urine Culture [facility] Start: 12-30-2024 Urine culture [facility] Start: 12-30-2024 Assessment of risk of venous thromboembolism [facility] Start: 12-30-2024 Continuous pulse oximetry [facility] Start: 12-30-2024 End: 12-30-2024 Following clinical pathway protocol [facility] Start: 12-30-2024 Incentive spirometry [facility] Start: 12-30-2024 Insertion of catheter into peripheral vein [facility] Start: 12-30-2024 Lab findings surveillance [facility] Start: 12-30-2024 Measuring intake and output [facility] Start: 12-30-2024 Notification of physician [facility] Start: 12-30-2024 Oxygen therapy [facility] Start: 12-30-2024 Patient education [facility] Start: 12-30-2024 Providing care according to standard [facility] Start: 12-30-2024 Vital signs measurements [facility] Start: 12-30-2024 [facility] Start: 12-30-2024 Verification routine [facility] Start: 12-30-2024 Hospital admission, emergency, from emergency room, medical nature [facility] Start: 12-30-2024 Admission procedure [facility] Start: 12-30-2024 End: 12-31-2024 [facility] Start: 12-30-2024 Osmolality measurement, serum [facility] Start: 12-30-2024 Serum inorganic phosphate measurement [facility] Start: 12-30-2024 Patient referral to dietitian [facility] Start: 11-28-2024 Patient discharge [facility] Start: 11-28-2024 [facility] Start: 11-26-2024 End: 11-27-2024 [facility] Start: 11-26-2024 Inhalation therapy procedure [facility] Start: 11-25-2024 Following clinical pathway protocol [facility] Start: 11-25-2024 Assessment of risk of venous thromboembolism [facility] Start: 11-25-2024 Care regimes management [facility] Start: 11-25-2024 Insertion of catheter into peripheral vein [facility] Start: 11-25-2024 Notification of physician [facility] Start: 11-25-2024 Providing care according to standard [facility] Start: 11-25-2024 Provision of activity privileges [facility] Start: 11-25-2024 Referral to general surgeon [facility] Start: 11-25-2024 Referral to occupational therapist [facility] Start: 11-25-2024 Referral to service [facility] Start: 11-25-2024 End: 11-25-2024 [facility] Start: 11-25-2024 Hospital admission, emergency, from emergency room, medical nature [facility] Start: 11-25-2024 Bacteria identified in Blood by Culture Blood Culture [facility] Start: 11-25-2024 Blood culture Blood Culture [facility] Start: 11-25-2024 Admission procedure [facility] Start: 11-25-2024 Verification routine [facility] Start: 11-25-2024 [facility] Start: 03-12-2024 Covid-19 Vaccine ( season) Covid-19 Vaccine ( season) [facility] Start: 03-12-2024 Influenza vaccination Influenza Vaccine (#1) [facility] Start: 02-24-2024 ANNUAL PCP TEAM CHRONIC DISEASE VISIT ANNUAL PCP TEAM CHRONIC DISEASE VISIT [facility] Start: 01-12-2024 Hemoglobin A1c measurement HbA1C [facility] Start: 07-23-2023 Amputation foot transmetarsal AMPUTATION THRU METATARSAL [facility] Start: 07-23-2023 Anes open proc bones lower leg/ankle/foot nos ANESTH LOWER LEG BONE SURG [facility] Start: 07-23-2023 Injection aa&/strd sciatic nerve NJX AA&/STRD SCIATIC NRV IMG [facility] Start: 07-23-2023 Musc myocutaneous/fasciocutaneous flap lxtr MUSCLE-SKIN GRAFT LEG [facility] Start: 07-23-2023 Smr prim src gram/giemsa stain bct fungi/cell SMEAR GRAM STAIN [facility] Start: 07-23-2023 [facility] Start: 07-23-2023 Patient discharge [facility] Start: 07-23-2023 X-ray of both feet [facility] Start: 07-23-2023 XR Foot GE 3 Views [facility] Start: 07-12-2023 [facility] Start: 06-28-2023 [facility] Start: 06-27-2023 [facility] Start: 06-27-2023 Blood chemistry [facility] Start: 06-26-2023 [facility] Start: 06-25-2023 [facility] Start: 05-21-2023 Hemoglobin A1c measurement HbA1C [facility] Start: 05-21-2023 Hemoglobin A1c/Hemoglobin.total in Blood HBA1C [facility] Start: 05-18-2023 Anaerobic microbial culture Anaerobic Culture [facility] Start: 05-18-2023 [facility] Start: 05-09-2023 Patient discharge [facility] Start: 05-08-2023 Inhalation therapy procedure [facility] Start: 05-07-2023 [facility] Start: 05-04-2023 [facility] Start: 05-04-[address] [facility] Start: 05-04-2023 Assessment of risk of venous thromboembolism [facility] Start: 05-04-2023 Care regimes management [facility] Start: 05-04-2023 Consultation for treatment [facility] Start: 05-04-2023 Insertion of catheter into peripheral vein [facility] Start: 05-04-2023 Notification of physician [facility] Start: 05-04-2023 [facility] Start: 05-04-2023 Providing care according to standard [facility] Start: 05-04-2023 [facility] Start: 05-04-2023 Following clinical pathway protocol [facility] Start: 05-04-2023 Incision and drainage of abscess [facility] Start: 05-04-2023 Admission procedure [facility] Start: 05-04-2023 Hospital admission, emergency, from emergency room, medical nature [facility] Start: 05-04-2023 End: 05-04-2023 Blood culture [facility] Start: 05-04-2023 End: 05-04-2023 [facility] Start: 05-04-2023 [facility] Start: 04-15-2023 [facility] Start: 03-12-2023 Covid-19 Vaccine ( season) Covid-19 Vaccine () [facility] Start: 03-12-2023 Influenza vaccination [facility] Start: 01-25-2023 Blood chemistry [facility] Start: 01-25-2023 Computed tomography of abdomen and pelvis with intravenous contrast Abdomen/Pelvis W IV Cont ONLY [facility] Start: 01-25-2023 Electrocardiographic procedure [facility] Start: 01-25-2023 Lipase measurement [facility] Start: 01-25-2023 [facility] Start: 01-19-2023 [facility] Start: 01-18-2023 [facility] Start: 01-17-2023 [facility] Start: 01-16-2023 [facility] Start: 01-15-2023 Patient discharge [facility] Start: 01-14-2023 Referral to service [facility] Start: 01-14-2023 Assessment of risk of venous thromboembolism [facility] Start: 01-14-2023 Care regimes management [facility] Start: 01-14-2023 Insertion of catheter into peripheral vein [facility] Start: 01-14-2023 Measuring intake and output [facility] Start: 01-14-2023 Patient referral to dietitian [facility] Start: 01-14-2023 Providing care according to standard [facility] Start: 01-14-2023 Provision of activity privileges [facility] Start: 01-14-2023 [facility] Start: 01-14-2023 Following clinical pathway protocol [facility] Start: 01-14-2023 Verification routine [facility] Start: 01-14-2023 Admission procedure [facility] Start: 01-12-2023 US Gallbladder [facility] Start: 01-12-2023 US Pelvis transvaginal [facility] Start: 10-08-2022 End: 12-08-2022 Bacteria identified in Wound by Culture ABSCESS AND WOUND CULTURE WITH GRAM STAIN Microbiology Routine Toe infection Expected: 10/08/2022, Expires: 12/08/2022 [facility] Work Phone: Comment on above: Expected: 10/08/2022, Expires: Start: 08-15-2022 Patient discharge [facility] Start: 08-14-2022 Provision of activity privileges [facility] Start: 08-13-2022 End: 08-13-2022 Blood culture [facility] Start: 08-13-2022 [facility] Start: 08-13-2022 Inhalation therapy procedure [facility] Start: 08-12-2022 Following clinical pathway protocol [facility] Start: 08-12-2022 Assessment of risk of venous thromboembolism [facility] Start: 08-12-2022 Care regimes management [facility] Start: 08-12-2022 Insertion of catheter into peripheral vein [facility] Start: 08-12-2022 Measuring intake and output [facility] Start: 08-12-2022 Notification of physician [facility] Start: 08-12-2022 Providing care according to standard [facility] Start: 08-12-2022 Provision of activity privileges [facility] Start: 08-12-2022 [facility] Start: 08-12-2022 Admission procedure [facility] Start: 08-12-2022 [facility] Start: 08-12-2022 Patient referral to dietitian [facility] Start: 07-12-2022 DEPRESSION ASSESSMENT DEPRESSION ASSESSMENT [facility] Start: 06-30-2022 Blood chemistry [facility] Work Phone: Start: 06-29-2022 Patient discharge [facility] Start: 06-29-2022 Blood chemistry [facility] Work Phone: Start: 06-28-2022 Blood chemistry [facility] Work Phone: Start: 06-27-2022 Blood chemistry [facility] Work Phone: Start: 06-26-2022 Wound care [facility] Start: 06-26-2022 Elevation of affected extremity [facility] Start: 06-26-2022 [facility] Start: 06-26-2022 Debridement Debridement Wound (Right) [facility] Work Phone: Start: 06-26-2022 Blood chemistry [facility] Work Phone: Start: 06-25-2022 Referral to service [facility] Start: 06-25-2022 Consultation [facility] Start: 06-24-2022 Assessment of risk of venous thromboembolism [facility] Start: 06-24-2022 Care regimes management [facility] Start: 06-24-2022 Consultation for treatment [facility] Start: 06-24-2022 Insertion of catheter into peripheral vein [facility] Start: 06-24-2022 Providing care according to standard [facility] Start: 06-24-2022 Provision of activity privileges [facility] Start: 06-24-2022 Referral to occupational therapist [facility] Start: 06-24-2022 Referral to program attendant [facility] Start: 06-24-2022 Referral to service [facility] Start: 06-24-2022 [facility] Start: 06-24-2022 Following clinical pathway protocol [facility] Start: 06-24-2022 End: 06-25-2022 [facility] Start: 06-24-2022 Verification routine [facility] Work Phone: Start: 06-24-2022 Admission procedure [facility] Start: 06-24-2022 End: 06-24-2022 Blood culture [facility] Work Phone: Start: 06-24-2022 Patient referral to dietitian [facility] Start: 06-23-2022 Cul bact aerobic addl meths definitive ea isol CULTURE AEROBIC IDENTIFY [facility] Start: 06-23-2022 Cul bact xcpt urine blood/stool aerobic isol CULTURE OTHR SPECIMN AEROBIC [facility] Start: 06-23-2022 Iadna s aureus amplified probe tq STAPH A DNA AMP PROBE [facility] Start: 06-23-2022 Smr prim src gram/giemsa stain bct fungi/cell SMEAR GRAM STAIN [facility] Start: 06-23-2022 [facility] Work Phone: Start: 04-27-2022 Hemoglobin A1c/Hemoglobin.total in Blood HBA1C [facility] Start: 04-09-2022 Patient discharge [facility] Work Phone: Start: 04-07-2022 Consultation [facility] Work Phone: Start: 04-07-2022 End: 04-07-2022 Referral to service [facility] Work Phone: Start: 04-06-2022 Elevation of affected extremity [facility] Work Phone: Start: 04-06-2022 [facility] Work Phone: Start: 04-06-2022 End: 04-06-2022 Following clinical pathway protocol [facility] Work Phone: Start: 04-06-[address] [facility] Work Phone: Start: 04-06-2022 Assessment of risk of venous thromboembolism [facility] Work Phone: Start: 04-06-2022 Care regimes management [facility] Work Phone: Start: 04-06-2022 Consultation for treatment [facility] Work Phone: Start: 04-06-2022 Elevation of affected extremity [facility] Work Phone: Start: 04-06-2022 Insertion of catheter into peripheral vein [facility] Work Phone: Start: 04-06-2022 Notification of physician [facility] Work Phone: Start: 04-06-2022 Patient referral to dietitian [facility] Work Phone: Start: 04-06-2022 Providing care according to standard [facility] Work Phone: Start: 04-06-2022 Referral to program attendant [facility] Work Phone: Start: 04-06-2022 Wound care [facility] Work Phone: Start: 04-06-2022 [facility] Work Phone: Start: 04-06-2022 Verification routine [facility] Work Phone: Start: 04-06-2022 Admission procedure [facility] Work Phone: Start: 04-06-2022 End: 04-07-2022 [facility] Work Phone: Start: 04-06-2022 Patient referral to dietitian [facility] Work Phone: Start: 04-05-2022 Assay of lactate ASSAY OF LACTIC ACID [facility] Work Phone: Start: 04-05-2022 Basic metabolic panel calcium total METABOLIC PANEL TOTAL CA [facility] Work Phone: Start: 04-05-2022 Blood count complete auto&auto difrntl wbc COMPLETE CBC W/AUTO DIFF WBC [facility] Work Phone: Start: 04-05-2022 Culture bacterial blood aerobic w/id isolates BLOOD CULTURE FOR BACTERIA [facility] Work Phone: Start: 04-05-2022 Emergency department visit moderate severity EMERGENCY DEPT VISIT [facility] Work Phone: Start: 04-05-2022 Iv infusion ther proph addl sequential to 1 hr TX/PROPH/DG ADDL SEQ IV INF [facility] Work Phone: Start: 04-05-2022 Iv infusion therapy prophylaxis/dx ea hour THER/PROPH/DIAG IV INF ADDGIAN [facility] Work Phone: Start: 04-05-2022 Iv infusion therapy/prophylaxis /dx 1st to [facility] Start: 04-05-2022 Radex foot complete minimum 3 views X-RAY EXAM OF FOOT [facility] Work Phone: Start: 04-05-2022 End: 04-05-2022 Blood culture [facility] Work Phone: Start: 03-23-2022 End: 04-06-2022 SARS-CoV-2 (COVID-19) RNA [Presence] in Respiratory specimen by REBECCA with probe detection 2019 [facility] Microbiology Routine Acute cough Mild intermittent asthmatic bronchitis without complication Expected: 03/23/2022, Expires: 04/06/2022 [facility] Work Phone: Comment on above: Expected: 03/23/2022, Expires: 2 Start: 03-12-2022 Influenza vaccination INFLUENZA (#1) [facility] Start: 01-30-2022 Celiac disease screen [facility] Work Phone: Start: 01-30-2022 Immunoglobulin measurement [facility] Work Phone: Start: 01-30-2022 Serum immunofixation [facility] Work Phone: Start: 01-30-2022 Vitamin B12 measurement [facility] Work Phone: Start: 01-30-2022 [facility] Work Phone: Start: 01-28-2022 HPV TESTING HPV TESTING [facility] Start: 01-28-2022 Screening for malignant neoplasm of cervix [facility] Start: 08-25-2021 COVID-19 VACCINE (2 - Moderna series) COVID-19 VACCINE (2 - Moderna series) [facility] Start: 03-10-2020 3 comp foot exam completed DIABETIC FOOT EXAM [facility] Start: 03-10-2020 ANNUAL PCP TEAM CHRONIC DISEASE VISIT ANNUAL PCP TEAM CHRONIC DISEASE VISIT [facility] Start: 03-10-2020 Diabetic foot examination Diabetic Foot Exam [facility] Start: 05-03-2018 PAP TESTING PAP TESTING [facility] Start: 05-03-2018 Screening for malignant neoplasm of cervix Pap Testing [facility] Start: 05-03-2016 Screening for malignant neoplasm of cervix Cervical Cancer Screening [facility] Start: 06-07-2014 Hepatitis B surface antibody level LDL CHOLESTEROL [facility] Start: 04-12-2014 Hepatitis B screening URINE ALBUMIN:CREATININE RATIO [facility] Start: 03-31-2014 Glaucoma screening Dilated Retinal Exam [facility] Start: 03-31-2014 Hepatitis C antibody, confirmatory test DILATED RETINAL EXAM [facility] Start: 03-06-2014 PNEUMOCOCCAL (2 - PCV) PNEUMOCOCCAL (2 - PCV) [facility] Start: 03-06-2014 Pneumococcal vaccination [facility] Start: 03-06-2014 Pneumococcal Vaccine: Pediatrics (0 to 5 Years) and At-Risk Patients (6 to 64 Years) (2 - PCV) Pneumococcal Vaccine: Pediatrics (0 to 5 Years) and At-Risk Patients (6 to 64 Years) (2 - PCV) [facility] Start: 01-28-2013 Screening for malignant neoplasm of cervix Pap Smear [facility] Start: 01-28-2011 DTaP/Tdap/Td Vaccines (1 - Tdap) DTaP/Tdap/Td Vaccines (1 - Tdap) [facility] Start: 01-28-2011 HEPATITIS B (1 of 3 - Risk 3-dose series) HEPATITIS B (1 of 3 - Risk 3-dose series) [facility] Start: 01-28-2011 Hepatitis B Vaccine (1 of 3 - 19+ 3-dose series) Hepatitis B Vaccine (1 of 3 - 19+ 3-dose series) [facility] Start: 01-28-2011 Urine microalbumin profile [facility] Start: 01-28-2010 HEPATITIS C SCREENING HEPATITIS C SCREENING [facility] Start: 01-28-2010 Hepatitis C screening Hepatitis C Screening [facility] Start: 01-28-2010 HIV SCREENING HIV SCREENING [facility] Start: 01-28-2010 HIV screening HIV Screening [facility] Start: 2004 Adult depression screening assessment DEPRESSION SCREENING [facility] Start: 01-28-2002 Diabetic foot examination Diabetes: Foot Exam [facility] Start: 01-28-2002 Glaucoma screening Diabetes: Retinopathy Screening [facility] Start: 01-28-2002 Preventive dental service Diabetes: Dental Exam [facility] Start: 01-28-1993 MMR Vaccines (1 of 1 - Standard series) MMR Vaccines (1 of 1 - Standard series) [facility] Start: 01-28-1993 Varicella vaccination Varicella Vaccines (1 of 2 - 2-dose childhood series) [facility] Start: 1992 COVID-19 VACCINE (#1) COVID-19 VACCINE (#1) [facility] Start: 1992 Hemoglobin A1c measurement Diabetes: Hemoglobin A1C [facility] Start: 1992 HEPATITIS B (1 of 3 - 3-dose series) HEPATITIS B (1 of 3 - 3-dose series) [facility] Start: 1992 Hepatitis B Vaccine (1 of 3 - 3-dose series) Hepatitis B Vaccine (1 of 3 - 3-dose series) [facility] Start: 1992 Hepatitis B Vaccines (1 of 3 - 3-dose series) Hepatitis B Vaccines (1 of 3 - 3-dose series) [facility] Start: 1992 HIV screening HIV Screening [facility] Start: 1992 Lipid panel Lipid Panel [facility] Acetone [Presence] i n Serum or Plasma [facility] Acid fast bacilli culture [facility] Work Phone: Acid fast bacilli culture [facility] Alanine aminotransfe rase [Enzymatic activity/volume] in Serum or Plasma [facility] Alanine aminotransfe rase [Enzymatic activity/volume] in Serum or Plasma [facility] Alanine aminotransfe rase [Enzymatic activity/volume] in Serum or Plasma [facility] Alanine aminotransfe rase [Enzymatic activity/volume] in Serum or Plasma [facility] Alanine aminotransfe rase [Enzymatic activity/volume] in Serum or Plasma [facility] Albumin [Mass/volume ] in Serum or Plasma [facility] Albumin [Mass/volume ] in Serum or Plasma [facility] Albumin [Mass/volume ] in Serum or Plasma [facility] Albumin [Mass/volume ] in Serum or Plasma [facility] Albumin [Mass/volume ] in Serum or Plasma [facility] Albumin [Moles/volum e] in Serum or Plasma [facility] Work Phone: Albumin/Globulin ratio [facility] Work Phone: Alkaline phosphatase [Enzymatic activity/volume] in Serum or Plasma [facility] Alkaline phosphatase [Enzymatic activity/volume] in Serum or Plasma [facility] Alkaline phosphatase [Enzymatic activity/volume] in Serum or Plasma [facility] Alkaline phosphatase [Enzymatic activity/volume] in Serum or Plasma [facility] Alkaline phosphatase [Enzymatic activity/volume] in Serum or Plasma [facility] Anion gap in Serum or Plasma [facility] Anion gap measurement [facility] Work Phone: Anion gap measurement [facility] Anion gap measurement [facility] Anion gap measurement [facility] Anion gap measurement [facility] Anion gap measurement [facility] Anion gap measurement [facility] Antibody to lupus La protein measurement [facility] Work Phone: Antibody to SS-A measurement [facility] Work Phone: Aspartate aminotrans ferase [Enzymatic activity/volume] in Serum or Plasma [facility] Aspartate aminotrans ferase [Enzymatic activity/volume] in Serum or Plasma [facility] Aspartate aminotrans ferase [Enzymatic activity/volume] in Serum or Plasma [facility] Aspartate aminotrans ferase [Enzymatic activity/volume] in Serum or Plasma [facility] Aspartate aminotrans ferase [Enzymatic activity/volume] in Serum or Plasma [facility] Bacteria identified in Blood by Culture Blood Culture [facility] Bacteria identified in Unspecified specimen by Anaerobe culture [facility] Work Phone: Bacteria identified in Unspecified specimen by Anaerobe culture [facility] Bacteria identified in Urine by Culture Urine Culture [facility] Beta hydroxybutyrate [Mass/volume] in Serum or Plasma [facility] Beta hydroxybutyrate [Mass/volume] in Serum or Plasma [facility] Bilirubin measurement, urine [facility] Bilirubin measurement, urine [facility] Bilirubin, total measurement [facility] Bilirubin, total measurement [facility] Bilirubin, total measurement [facility] Bilirubin, total measurement [facility] Bilirubin, total measurement [facility] Bilirubin.direct [Mass/volume] in Serum or Plasma [facility] Blood culture [facility] Work Phone: BUN/Creatinine ratio [facility] Work Phone: BUN/Creatinine ratio [facility] BUN/Creatinine ratio [facility] BUN/Creatinine ratio [facility] BUN/Creatinine ratio [facility] BUN/Creatinine ratio [facility] BUN/Creatinine ratio [facility] BUN/Creatinine ratio [facility] Calcium [Mass/volume ] in Serum or Plasma [facility] Work Phone: Calcium [Mass/volume ] in Serum or Plasma [facility] Calcium [Mass/volume ] in Serum or Plasma [facility] Calcium [Mass/volume ] in Serum or Plasma [facility] Calcium [Mass/volume ] in Serum or Plasma [facility] Calcium [Mass/volume ] in Serum or Plasma [facility] Calcium [Mass/volume ] in Serum or Plasma [facility] Calcium [Mass/volume ] in Serum or Plasma [facility] Carbon dioxide, tota l [Moles/volume] in Central venous blood [facility] Carbon dioxide, tota l [Moles/volume] in Serum or Plasma [facility] Work Phone: Carbon dioxide, tota l [Moles/volume] in Serum or Plasma [facility] Carbon dioxide, tota l [Moles/volume] in Serum or Plasma [facility] Carbon dioxide, tota l [Moles/volume] in Serum or Plasma [facility] Carbon dioxide, tota l [Moles/volume] in Serum or Plasma [facility] Carbon dioxide, tota l [Moles/volume] in Serum or Plasma [facility] Carbon dioxide, tota l [Moles/volume] in Serum or Plasma [facility] CBC W Auto Different ial panel - Blood [facility] Centromere protein B Ab [Units/volume] in Serum [facility] Work Phone: Chloride [Moles/volu me] in Serum or Plasma [facility] Work Phone: Chloride [Moles/volu me] in Serum or Plasma [facility] Chloride [Moles/volu me] in Serum or Plasma [facility] Chloride [Moles/volu me] in Serum or Plasma [facility] Chloride [Moles/volu me] in Serum or Plasma [facility] Chloride [Moles/volu me] in Serum or Plasma [facility] Chloride [Moles/volu me] in Serum or Plasma [facility] Choriogonadotropin.b eta subunit ( test) [Presence] in Serum or Plasma [facility] Chromatin Ab [Units/ volume] in Serum or Plasma [facility] Work Phone: Comprehensive metabo lic 2000 panel - Serum or Plasma [facility] Creatinine [Mass/vol ume] in Serum or Plasma [facility] Creatinine [Moles/vo lume] in Serum or Plasma [facility] Work Phone: Creatinine [Moles/vo lume] in Serum or Plasma [facility] Creatinine [Moles/vo lume] in Serum or Plasma [facility] Creatinine [Moles/vo lume] in Serum or Plasma [facility] Creatinine [Moles/vo lume] in Serum or Plasma [facility] Creatinine [Moles/vo lume] in Serum or Plasma [facility] Creatinine [Moles/vo lume] in Serum or Plasma [facility] DNA double strand Ab [Units/volume] in Serum [facility] Work Phone: Electrophoresis: [id number] [facility] Work Phone: Electrophoresis: gabriella ma globulin [facility] Work Phone: Erythrocyte mean cor puscular volume determination [facility] Erythrocyte sediment ation rate [facility] Globulin measurement [facility] Work Phone: Glucose [Mass/volume ] in Serum or Plasma [facility] Work Phone: Glucose [Mass/volume ] in Serum or Plasma [facility] Glucose [Mass/volume ] in Serum or Plasma [facility] Glucose [Mass/volume ] in Serum or Plasma [facility] Glucose [Mass/volume ] in Serum or Plasma [facility] Glucose [Mass/volume ] in Serum or Plasma [facility] Glucose [Mass/volume ] in Serum or Plasma [facility] Glucose [Mass/volume ] in Serum or Plasma [facility] Hematocrit [Volume F raction] of Blood [facility] Work Phone: Hematocrit [Volume F raction] of Blood [facility] Hematocrit [Volume F raction] of Blood [facility] Hematocrit [Volume F raction] of Blood [facility] Hematocrit [Volume F raction] of Blood [facility] Hematocrit [Volume F raction] of Blood [facility] Hematocrit [Volume F raction] of Blood [facility] Hemoglobin [Mass/vol ume] in Blood [facility] Work Phone: Hemoglobin [Mass/vol ume] in Blood [facility] Hemoglobin [Mass/vol ume] in Blood [facility] Hemoglobin [Mass/vol ume] in Blood [facility] Hemoglobin [Mass/vol ume] in Blood [facility] Hemoglobin [Mass/vol ume] in Blood [facility] Hemoglobin [Mass/vol ume] in Blood [facility] Hemoglobin [Presence ] in Urine [facility] Hemoglobin [Presence ] in Urine [facility] IgA [Mass/volume] in Serum or Plasma [facility] Work Phone: IgE [Units/volume] i n Serum or Plasma [facility] Work Phone: IgG [Mass/volume] in Serum or Plasma [facility] Work Phone: IgM [Mass/volume] in Serum or Plasma [facility] Work Phone: Neva-1 extractable nuc lear Ab [Units/volume] in Serum [facility] Work Phone: Lactic acid measurement [facility] Work Phone: Leukocytes [#/volume ] in Blood [facility] Work Phone: Leukocytes [#/volume ] in Blood [facility] Leukocytes [#/volume ] in Blood [facility] Leukocytes [#/volume ] in Blood [facility] Leukocytes [#/volume ] in Blood [facility] Leukocytes [#/volume ] in Blood [facility] Leukocytes [#/volume ] in Blood [facility] Magnesium measurement [facility] Magnesium measurement [facility] Mean corpuscular hem oglobin concentration determination [facility] Work Phone: Mean corpuscular hem oglobin concentration determination [facility] Mean corpuscular hem oglobin concentration determination [facility] Mean corpuscular hem oglobin concentration determination [facility] Mean corpuscular hem oglobin concentration determination [facility] Mean corpuscular hem oglobin concentration determination [facility] Mean corpuscular hem oglobin concentration determination [facility] Mean corpuscular hem oglobin determination [facility] Work Phone: Mean corpuscular hem oglobin determination [facility] Mean corpuscular hem oglobin determination [facility] Mean corpuscular hem oglobin determination [facility] Mean corpuscular hem oglobin determination [facility] Mean corpuscular hem oglobin determination [facility] Mean corpuscular hem oglobin determination [facility] Measurement of immun oglobulin A in serum specimen [facility] Work Phone: Measurement of keton es in urine using dipstick [facility] Measurement of keton es in urine using dipstick [facility] Measurement of renal function [facility] Work Phone: Measurement of renal function [facility] Measurement of renal function [facility] Measurement of renal function [facility] Measurement of renal function [facility] Measurement of renal function [facility] Measurement of renal function [facility] Measurement of renal function [facility] Microbial culture, routine Wound Culture [facility] Work Phone: Microscopic urinalysis [facility] Work Phone: Microscopic urinalysis [facility] Microscopic urinalysis [facility] Mycobacterium sp marko ntified in Unspecified specimen by Organism specific culture [facility] Work Phone: Mycobacterium sp marko ntified in Unspecified specimen by Organism specific culture [facility] Neutrophil count [facility] Work Phone: Neutrophil count [facility] Neutrophil count [facility] Neutrophil count [facility] Neutrophil count [facility] Neutrophil count [facility] Neutrophil count [facility] Neutrophil cytoplasm ic Ab.classic [Units/volume] in Serum [facility] Work Phone: Neutrophil percent differential count [facility] Work Phone: Neutrophil percent differential count [facility] Neutrophil percent differential count [facility] Neutrophil percent differential count [facility] Neutrophil percent differential count [facility] Neutrophil percent differential count [facility] Neutrophil percent differential count [facility] End: 03-31-2024 NM Stomach Views for gastric emptying solid phase W radionuclide PO NM GASTRIC EMPTYING SOLID Radiology Routine Nausea 1 Occurrences starting 03/02/2023 until 03/31/2024 [facility] Work Phone: Comment on above: 1 Occurrences starting 03/02/2023 until 03/31/2024 Organism count, micr oscopic method [facility] Work Phone: P-ANCA measurement [facility] Work Phone: Patient Education [facility] Work Phone: Patient referral [facility] Work Phone: pH of Urine [facility] pH of Urine [facility] Platelets [#/volume] in Blood [facility] Work Phone: Platelets [#/volume] in Blood [facility] Platelets [#/volume] in Blood [facility] Platelets [#/volume] in Blood [facility] Platelets [#/volume] in Blood [facility] Platelets [#/volume] in Blood [facility] Platelets [#/volume] in Blood [facility] Potassium [Moles/vol ume] in Serum or Plasma [facility] Work Phone: Potassium [Moles/vol ume] in Serum or Plasma [facility] Potassium [Moles/vol ume] in Serum or Plasma [facility] Potassium [Moles/vol ume] in Serum or Plasma [facility] Potassium [Moles/vol ume] in Serum or Plasma [facility] Potassium [Moles/vol ume] in Serum or Plasma [facility] Potassium [Moles/vol ume] in Serum or Plasma [facility] Potassium measurement [facility] Protein electrophore sis panel - Serum or Plasma [facility] Work Phone: Radionuclide gastric emptying study [facility] Red blood cell count [facility] Work Phone: Red blood cell count [facility] Red blood cell count [facility] Red blood cell count [facility] Red blood cell count [facility] Red blood cell count [facility] Red blood cell count [facility] Red cell distributio n width determination [facility] Work Phone: Red cell distributio n width determination [facility] Red cell distributio n width determination [facility] Red cell distributio n width determination [facility] Red cell distributio n width determination [facility] Red cell distributio n width determination [facility] Red cell distributio n width determination [facility] SCL-70 extractable n uclear Ab [Units/volume] in Serum by Immunoassay [facility] Work Phone: Serum chloride measurement [facility] Serum protein electrophoresis [facility] Work Phone: Jang extractable nu clear Ab [Presence] in Serum [facility] Work Phone: Sodium [Moles/volume ] in Serum or Plasma [facility] Work Phone: Sodium [Moles/volume ] in Serum or Plasma [facility] Sodium [Moles/volume ] in Serum or Plasma [facility] Sodium [Moles/volume ] in Serum or Plasma [facility] Sodium [Moles/volume ] in Serum or Plasma [facility] Sodium [Moles/volume ] in Serum or Plasma [facility] Sodium [Moles/volume ] in Serum or Plasma [facility] Sodium measurement [facility] Specific gravity of Urine [facility] Specific gravity of Urine [facility] Tissue transglutamin ase IgA Ab [Units/volume] in Serum [facility] Work Phone: Total protein measurement [facility] Total protein measurement [facility] Total protein measurement [facility] Total protein measurement [facility] Total protein measurement [facility] Urea nitrogen [Mass/ volume] in Serum or Plasma [facility] Work Phone: Urea nitrogen [Mass/ volume] in Serum or Plasma [facility] Urea nitrogen [Mass/ volume] in Serum or Plasma [facility] Urea nitrogen [Mass/ volume] in Serum or Plasma [facility] Urea nitrogen [Mass/ volume] in Serum or Plasma [facility] Urea nitrogen [Mass/ volume] in Serum or Plasma [facility] Urea nitrogen [Mass/ volume] in Serum or Plasma [facility] Urea nitrogen [Mass/ volume] in Serum or Plasma [facility] Urinalysis, blood, qualitative [facility] Work Phone: Urinalysis, blood, qualitative [facility] Urinalysis, blood, qualitative [facility] Urine dipstick for glucose [facility] Urine dipstick for glucose [facility] Urine dipstick for l eukocyte esterase [facility] Urine dipstick for l eukocyte esterase [facility] Urine dipstick for nitrite [facility] Urine dipstick for nitrite [facility] Urine dipstick for protein [facility] Urine dipstick for protein [facility] Urine examination [facility] Urine examination [facility] Urine microscopy: ep ithelial cells [facility] Work Phone: Urine microscopy: ep ithelial cells [facility] Urine microscopy: ep [facility] Urine Microscopy: white cells [facility] Urine Microscopy: white cells [facility] Urobilinogen [Presen ce] in Urine [facility] Urobilinogen [Presen ce] in Urine [facility] Vancomycin [Mass/vol ume] in Serum or Plasma --trough [facility] Work Phone: White blood cell count [facility] Work Phone: [facility] Immunizations Immunization Date Immunization Notes Care Provider Gabi samson 06-30-2021 Covid (Moderna) [facility] Work Phone: [facility] 04-13-2013 influenza virus vacc ine, unspecified formulation Alyssa Jaime APRN.[employer]Y PROGRAM COORDINATOR Work Phone: [facility] 03-06-2013 pneumococcal polysaccharide vaccine, 23 valent Alyssa Jaime BURIAL VAULT SETTER.[facility] Work Phone: [facility] Work Phone: Payers Date Payer Category Payer Self-pay [id number] 2021 Medicaid [id number] 2021 Medicaid [employer] [employer] [place] [id number] 2021-[facility] [phone] [address] [address] [place] [address] Medicaid [id number] 2021 Medicaid [id number]. [id number] 1990 Unknown [id number] 2.16.840.1.300946.3.579.2.651 1992 Unknown [id number] 2..840.1.222589.3.579.2.651 1992 Unknown [id number] 2..840.1.723636.3.579.2.627 1992 Unknown [id number] 2.16.840.1.592937.3.579.2.627 Unknown [id number] 2.16.840.1.319191.3.579.2.462 Unknown [id number] 2.16.840.1.861476.3.579.2.462 Unknown [id number] 2.16.840.1.550362.3.579.2.462 Unknown [id number] 2.16.840.1.877670.3.579.2.462 Unknown [id number] 2.16.840.1.813431.3.579.2.462 Unknown [id number] 2.16.840.1.020033.3.579.2.462 Unknown [id number] 2.16.840.1.427930.3.579.2.462 Unknown [id number] 2.16.840.1.920381.3.579.2.462 Unknown [id number] 2.16.840.1.606094.3.579.2.462 Unknown [id number] 2.16.840.1.486727.3.579.2.462 Unknown [id number] 2.16.840.1.174587.3.579.2.462 Unknown [id number] 2.16.840.1.328976.3.579.2.462 Unknown [id number] 2.16.840.1.492787.3.579.2.462 Unknown [id number] 2.16840.1.857143.3.579.2.462 Unknown [id number] 2.16.840.1.078583.3.579.2.462 Unknown [id number] 2.16.840.1.861954.3.579.2.462 Unknown [id number] 2.16.840.1.762974.3.579.2.462 Unknown [id number] 2.16.840.1.283526.3.579.2.462 Unknown [id number] 2.16.840.1.839815.3.579.2.462 Unknown [id number] 2.16.840.1.848958.3.579.2.462 Unknown [id number] 2.16.840.1.988547.3.579.2.462 Unknown [id number] 2.16.840.1.270799.3.579.2.462 Unknown [id number] 2.16.840.1.579562.3.579.2.462 Unknown [id number] 2.16840.1.135414.3.579.2.462 Unknown [id number] 2.16.840.1.688166.3.579.2.462 Unknown [id number] 2.16.840.1.362398.3.579.2.462 Social History Date Type Detail Facility [facility] Work Phone: Start: 10-24-2021 End: 06-27-2023 Tobacco smoking status NVIS Unknown if ever smoked [facility] Start: 1990 Sex Assigned At Female [facility] Start: 03-03-2013 End: 11-25-2024 Tobacco smoking status NHIS Smokes tobacco daily [facility] Work Phone: History of tobacco use Cigarette Smoker [facility] Start: 05-15-2021 End: 02-02-2022 Alcohol intake Current drinker of alcohol (finding) [facility] Start: 05-03-2013 History SDOH Alcohol Comment Seldom [facility] Start: 1990 Sex Assigned At Not on file [facility] Start: 04-15-2021 End: 01-24-2023 Exposure to SARS-CoV-2 (event) Not sure [facility] Work Phone: Start: 03-03-2013 End: 02-10-2023 Cigarettes smoked current (pack per day) - Reported 0.5 [facility] Start: 03-03-2013 End: 06-26-2024 Tobacco use and exposure Smokeless tobacco non-user [facility] Start: 01-10-2023 Tobacco smoking status Smoker (findi ng) [facility] Start: 01-24-2023 End: 02-10-2023 Alcohol Use Disorder Identification Test - Consumption [AUDIT-C] [facility] How often to you hav e a drink containing alcohol? Monthly or less [facility] How many standard dr inks containing alcohol do you have on a typical day? 1 or 2 [facility] How often do you hav e 6 or more drinks on 1 occasion? Less than monthly [facility] Start: 01-24-2023 [facility] (1-10 0), lower number is lower risk 92 [facility] Work Phone: Start: 02-19-2023 End: 07-03-2024 Alcohol intake Ex-drinker (finding) [facility] Start: 02-18-2023 Alcohol Comment rare [facility] (I/We) worried tunde er (my/our) food would run out before (I/we) got money to buy more. Never true [facility] Work Phone: In the past 12 month s, was there a time when you were not able to pay the mortgage or rent on time? No [facility] Work Phone: Start: 10-19-2024 End: 11-01-2024 Sex Female (finding) [facility] Start: 12-30-2024 End: 01-04-2025 Tobacco smoking status NHIS Ex-smoker (finding) [facility] NEGATED: Highlighted row [facility] NEGATED: Highlighted row Not [facility] Medical Equipment Procedure Code Equipment Code Equipment Origin al Text Equipment Identifier Dates Repair, tendon, Achilles BIOSKIN, 2 X 4 FDA Start: 12-24-2023 Repair, tendon, Achilles FIBERTAPE FDA Start: 12-24-2023 Repair, tendon, Achilles SUTURETAPE,FIBER LOOP FDA Start: 12-24-2023 Repair, tendon, Achilles [place] [employer] FDA Start: 12-24-2023 Repair, tendon, Achilles [place] [employer] FDA Start: 12-24-2023 Repair, tendon, Achilles VIAFLOW, 1CC FDA Start: 12-24-2023 Repair, tendon, Achilles [place] Graft Jacket Now Standard FDA Start: 12-24-2023 Repair, tendon, Achilles [id number] FDA Start: 12-24-2023 Repair, tendon, Achilles BIOSKIN, 2 X 4 FDA Start: 12-24-2023 Repair, tendon, Achilles FIBERTAPE FDA Start: 12-24-2023 Repair, tendon, Achilles SUTURETAPE,FIBER LOOP FDA Start: 12-24-2023 Repair, tendon, Achilles [place] [employer] FDA Start: 12-24-2023 Repair, tendon, Achilles [place] [employer] System FDA Start: 12-24-2023 Repair, tendon, Achilles VIAFLOW, 1CC FDA Start: 12-24-2023 Repair, tendon, Achilles [place] Graft Jacket Now Standard FDA Start: 12-24-2023 Repair, tendon, Achilles BIOSKIN, 2 X 4 FDA Start: 12-24-2023 Repair, tendon, Achilles FIBERTAPE FDA Start: 12-24-2023 Repair, tendon, Achilles SUTURETAPE,FIBER LOOP FDA Start: 12-24-2023 Repair, tendon, Achilles [place] [employer] FDA Start: 12-24-2023 Repair, tendon, Achilles [place] [employer] FDA Start: 12-24-2023 Repair, tendon, Achilles VIAFLOW, 1CC FDA Start: 12-24-2023 Repair, tendon, Achilles [place] Graft Jacket Now Standard FDA Start: 12-24-2023 Repair, tendon, Achilles BIOSKIN, 2 X 4 FDA Start: 12-24-2023 Repair, tendon, Achilles FIBERTAPE FDA Start: 12-24-2023 Repair, tendon, Achilles SUTURETAPE,FIBER LOOP FDA Start: 12-24-2023 Repair, tendon, Achilles [place] [employer] FDA Start: 12-24-2023 Repair, tendon, Achilles Aria [employer] FDA Start: 12-24-2023 Repair, tendon, Achilles VIAFLOW, 1CC FDA Start: 12-24-2023 Repair, tendon, Achilles [place] Graft Jacket Now Standard FDA Start: 12-24-2023 Repair, tendon, Achilles BIOSKIN, 2 X 4 FDA Start: 12-24-2023 Repair, tendon, Achilles FIBERTAPE FDA Start: 12-24-2023 Repair, tendon, Achilles SUTURETAPE,FIBER LOOP FDA Start: 12-24-2023 Repair, tendon, Achilles [place] [employer] FDA Start: 12-24-2023 Repair, [...] System FDA Start: 12-24-2023 Repair, tendon, Achilles [place] [employer] FDA Start: 12-24-2023 Repair, [...] FDA Start: 07-23-2023 Incision and drainage, abscess [id number] FDA Start: 07-23-2023 Incision and drainage, abscess [...] Incision and drainage, abscess FDA Start: 07-23-2023 [id number] Start: 11-27-2013 End: 02-18-2023 Comment on above: Test blood sugar(s) 1 times daily. Dx: 250.02. Insulin: No Test blood sugar(s) 1 daily. Dx: 250.02. Insulin: No Goals Date Patient Goal Desired Activity /State Functional Status Date Assessment Result Facility 01-01-2025 Functional status Ambulates;Up ad nella [facility] Work Phone: 12-31-2024 Functional status Ambulates;Bathroom [facility] Work Phone: 11-28-2024 Functional status Ambulates;Up ad nella [facility] Work Phone: 05-09-2023 Functional status Ambulates;Up nella [facility] Work Phone: 02-11-2023 Functional Status Sequential Com pression Device bilateral knee high removed/off [facility] 02-11-2023 Functional Status Driving, management lead, 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, Laundry, Meal preparation, Personal ADL, Shopping [facility] 02-11-2023 Functional Status Identified as high risk, Fall ID band on, Door open, Room check performed [facility] 02-11-2023 Functional Status [facility] 02-11-2023 Functional Status [facility] 02-11-2023 Functional Status Patient refused [facility] 02-10-2023 Functional Status [facility] 01-15-2023 Functional status Up ad nella [facility] Work Phone: 01-10-2023 Functional Status Independent [facility] 01-10-2023 Functional Status Standard Safet y Call device within reach, Bed in low position, Wheels locked, Safety level maintained [facility] 08-15-[address] [facility] Work Phone: 06-29-2022 Functional status Ambulates;Up a d nella;Bedside Commode [facility] Work Phone: 06-25-2022 Functional status Ambulates;Up a d nella;Bathroom Privilege [facility] Work Phone: 04-09-2022 Functional status Bedside [facility] Work Phone: Mental Status Date Assessment Result Facility 01-01-2025 Cognitive function Voice/Name [facility] Work Phone: 12-31-2024 Cognitive function Voice/Name [facility] Work Phone: 11-28-2024 Cognitive function Voice/Name [facility] Work Phone: 07-23-2023 Cognitive function [facility]/Name [facility] Work Phone: 05-08-2023 Cognitive function [facility]/Name [facility] Work Phone: 02-11-2023 Mental Status Oriented x 4 [facility] 02-11-2023 Mental Status [facility] 02-10-2023 Mental Status [facility] 01-14-2023 Cognitive function Appropriate;Cooperativ e [facility] Work Phone: 01-10-2023 Mental Status Orientation Oriented x 4 [facility] 08-15-2022 Cognitive function Voice/Name [facility] Work Phone: 08-12-2022 Cognitive function Level Of Cons ciousness Awake;Alert;Appropriate [facility] Work Phone: 06-29-2022 Cognitive function Voice/Name [facility] Work Phone: 06-25-2022 Cognitive function Voice/Name [facility] Work Phone: 04-09-2022 Cognitive function Voice/Name [facility] Work Phone: Clinical Notes 04-28-2013 to 01-04-2025 Note Date & Type Note Facility 01-04-2025 Radiology Diagnostic study note [facility] 01-01-2025 Note [facility] 01-01-2025 History and physi jose g note Note Date/Time January 01, 2025 6:02am [facility] Medical Records Department [address] [place] [address] H&P Exam - Hospitalist 12/31/24 2233 MR#: [id number] Acct: [id number] Name: GHISLAINE GIVENS Rep #:[id number] : 1990 34 From: Dewayne Solis DO PCP: BROOKLYN Warren, TRADE SPECIALIST-C Statu s:ADM IN Location: ICU CVICU20 3-1 [...] December 31, 2024 who now re-presents to [facility] ER complaining of hyperglycemia with intractable nausea [...] that expected to extend beyond 2 midnights. [facility] Medical History Type 2 diabetes mellitus [...] % (Auto) 64.4, Lymph % (Auto) 27.7, Wilcox % (Auto) 6.4, Eos % (Auto) 0.3, [...] Clarity Cloudy, Urine pH 6.0, Ur Specific [place] 1.020, Urine Protein 30 H, Urine Glucose [...] 75 minutes. Charges/Coding Visit Charges Inpatient E&M: 28578 Init Hosp L3 01/01/25 0602 <Electronically signed by Dewayne Grant DO> Cosigner Signature (if applicable): CC: BROOKLYN TRADE SPECIALIST-Sara Solorzano; Dr. Dewayne Grant DO~ Signed [facility] Work Phone: 1(120) 158-149206-23-2025 Discharge summary Author Poli Barfield [facility] Note Date/Time December 31, 2024 11:[facility] [address] [place] [address] Emergency Department Summary 12/31/24 MR#: [id number] Acct: [id number] Name: GHISLAINE GIVENS Rep #:[id number] : 1990 34 From: Poli Farah PCP: BROOKLYN Warren, TRADE SPECIALIST-C Statu s:ADM IN Location: ICU CVICU20 3-[address] Poli Barfield DO on 12/31/24 at 2351 EKG: Sinus rate of 82, no ST changes. QTc 422. 12/31/24 2351<Electronically signed by Poli Farah> Cosigner Signature (if applicable): cc: BROOKLYN TRADE SPECIALIST-C Amy Solorzano ~* Signed HPI History of [...] clinician: Hospitalist This note was generated with [employer] dictation software. It may contain incorrectwords, spelling, [...] % (Auto) 64.4 Lymph % (Auto) 27.7 Wilcox % (Auto) 6.4 Eos % (Auto) 0.3 [...] Clarity Cloudy Urine pH 6.0 Ur Specific [place] 1.020 Urine Protein 30 H Urine Glucose [...] (Auto) Neut % (Auto) Lymph % (Auto) Wilcox % (Auto) Eos % (Auto) Baso % (Auto) Absolute Neuts (auto) Absolute Lymphs (auto) Nucleated RBC % Sodium 139 Potassium 3.7 Chloride 108 Carbon Dioxide 18.2 L Anion Gap 13 BUN 7 Creatinine 0.85 Estim Creat Clear Calc 118.14 Est GFR (MDRD) Non-Af 93 BUN/Creatinine Ratio 8.0 L Glucose 177 H Calcium 8.2 b-Hydroxybutyric mmol/L Urine Color Urine Clarity Urine pH Ur Specific [place] Urine Protein Urine Glucose (UA) Urine Ketones [...] (excluding procedures): 30-74 minutes, Discussing w/Patient &/or Family/Assembler [employer], Arranging Admission or Transfer, Performing Direct Patient [...] Care Provider: Amy Solorzano Referrals: Amy Solorzano, TRADE SPECIALIST-C [Primary Care Provider] - Print Language: Turkmen Disposition Disposition: Acute Care Hospital [facility] What to do if you have Problems For any increased pain, shortness of breath, bleeding, nausea or vomiting, chestpain, or any unexpected problems, contact your Primary Care Provider. Call [facility] ([phone]) or report to the closest Emergency Room. Call 911 if necessary. 12/31/242306 <Electronically signed by Poli Farah> Cosigner Signature (if applicable): CC: BROOKLYN TRADE SPECIALIST-C Amy Solorzano ~ Signed [facility] Work Phone: 1(324) 101-610706-22-2025 Discharge summary Author Poli Barfield [facility] Note Date/Time December 31, 2024 11:0 7pm [facility] Medical Records Department [address] [place] [address] Emergency Department Summary 12/31/24 MR#: [id number] Acct: [id number] Name: GHISLAINE GIVENS Rep #:[id number] : 1990 34 From: Poli Farah PCP: BROOKLYN Warren, TRADE SPECIALIST-C Statu s:REG ER Location: ED HPI History [...] clinician: Hospitalist This note was generated with [employer] dictation software. It may contain incorrectwords, spelling, [...] % (Auto) 64.4 Lymph % (Auto) 27.7 Wilcox % (Auto) 6.4 Eos % (Auto) 0.3 [...] Clarity Cloudy Urine pH 6.0 Ur Specific [place] 1.020 Urine Protein 30 H Urine Glucose [...] (Auto) Neut % (Auto) Lymph % (Auto) Wilcox % (Auto) Eos % (Auto) Baso % (Auto) Absolute Neuts (auto) Absolute Lymphs (auto) Nucleated RBC % Sodium 139 Potassium 3.7 Chloride 108 Carbon Dioxide 18.2 L Anion Gap 13 BUN 7 Creatinine 0.85 Estim Creat Clear Calc 118.14 Est GFR (MDRD) Non-Af 93 BUN/Creatinine Ratio 8.0 L Glucose 177 H Calcium 8.2 b-Hydroxybutyric mmol/L Urine Color Urine Clarity Urine pH Ur Specific [place] Urine Protein Urine Glucose (UA) Urine Ketones [...] (excluding procedures): 30-74 minutes, Discussing w/Patient &/or Family/Assembl[employer], Arranging Admission or Transfer, Performing Direct Patient [...] Care Provider: Amy Solorzano Referrals: Amy Solorzano, TRADE SPECIALIST-C [Primary Care Provider] - Print Language: Turkmen Disposition Disposition: Acute Care Hospital [facility] What to do if you have Problems For any increased pain, shortness of breath, bleeding, nausea or vomiting, chestpain, or any unexpected problems, contact your Primary Care Provider. Call [facility] ([phone]) or report to the closest Emergency Room. Call 911 if necessary. 12/31/242306 <Electronically signed by Poli Farah> Cosigner Signature (if applicable): CC: BROOKLYN TRADE SPECIALIST-C Amy Solorzano ~ Signed [facility] Work Phone: 1(698) 592-524506-22-2025 [facility]06-22-2025 Discharge summary Author Poli Barfield [facility] Note Date/Time December 30, 2024 10:3 2pm [facility] Medical Records Department [address] [place] [address] Emergency Department Summary 12/30/24 MR#: [id number] Acct: [id number] Name: GHISLAINE GIVENS Rep #:[id number] : 1990 34 From: Poli Farah PCP: Amy Solorzano Sara, TRADE SPECIALIST-C Statu s:ADM IN Location: ICU CVICU20 3-1 [...] clinician: Hospitalist This note was generated with [employer] dictation software. It may contain incorrectwords, spelling, and punctuation that were not noted in checking the note beforesigning. Lab Data Attestation: I reviewed the patient's lab results. Labs: Laboratory Results - last 24 hr 12/30/24 12/30/24 10:50 11:32 WBC 13.3 H RBC 4.79 Hgb 13.2 Hct 39.2 MCV 81.8 MCH 27.6 MCHC 33.7 RDW Std Deviation 41.4 RDW Coeff of Ojhn 14.3 Plt Count 430 MPV 9.7 Immature Gran % (Auto) 0.600 Neut % (Auto) 70.7 H Lymph % (Auto) 23.6 Wilcox % (Auto) 4.8 Eos % (Auto) 0.0 [...] Sl. Cloudy Urine pH 5.0 Ur Specific [place] 1.025 Urine Protein 30 H Urine Glucose [...] (excluding procedures): 30-74 minutes, Discussing w/Patient &/or Family/[employer], Arranging Admission or Transfer, Performing Direct Patient Care at Bedside and - (35 minutes) Discharge Plan Dx/Rx/DC Orders Clinical Impression: Diabetic ketoacidosis, Cyclic vomiting syndrome, History of diabetes mellitus, NAI (acute kidney injury) Disposition Disposition: [facility] Discharge Date/Time: 12/30/24 13:08 What to do if you have Problems For any increased pain, shortness of breath, bleeding, nausea or vomiting, chestpain, or any unexpected problems, contact your Primary Care Provider. Call [facility] ([phone]) or report to the closest Emergency Room. Call 911 if necessary. 12/30/242231 <Electronically signed by Poli Farah> Cosigner Signature (if applicable): CC: BROOKLYN Solorzano ~ Signed [facility] Work Phone: 1(363) 969-732906-21-2025 Discharge summary [facility] Medical Records Department [address] [place] [address] Emergency Department Summary 12/30/24 MR#: [id number] Acct: [id number] Name: GHISLAINE GIVENS Rep #:[id number] : 1990 34 From: Poli Farah PCP: BROOKLYN Warren, PATRICE Statu s:ADM IN [...] unit/mL (3 20 unit subcut BID doreen betsayra 08/12/22 12/29/24 History mL) subcutaneous pen (Lantus [...] clinician: Hospitalist This note was generated with [employer] software. It may contain incorrectwords, spelling, and [...] (Auto) 70.7 H Lymph % (Auto) 23.6 Wilcox % (Auto) 4.8 Eos % (Auto) 0.0 [...] Sl. Cloudy Urine pH 5.0 Ur Specific [place] 1.025 Urine Protein 30 H Urine Glucose [...] kidney injury) Disposition Disposition: Acute Care Hospital [facility] Discharge Date/Time: 12/30/24 13:08 What to do if you have Problems For any increased pain, shortness of breath, bleeding, nausea or vomiting, chestpain, or any unexpected problems, contact your Primary Care Provider. Call [facility] ([phone]) or report tothe closest Emergency Room. Call 911 if necessary. 12/30/242 Cosigner Signature (if applicable): CC: BROOKLYN TRADE SPECIALISTKaykay Solorzano ~ Signed [facility]06-21-2025 History and physical note Author David Bain [facility] Note Date/Time December 30, 2024 1:09 pm [facility] Medical Records Department [address] [place] [address] H&P Exam - Hospitalist 12/30/24 1248 MR#: [id number] Acct: [id number] Name: GHISLAINE GIVENS Rep #:[id number] : 1990 34 From: David Gupta PCP: BROOKLYN Warren, TRADE SPECIALIST-C Statu s:ADM IN Location: ICU CVICU20 3-1 [...] DKA therefore admitted. Vitals in normal limit. [facility] Medical History Diabetes GERD (gastroesophageal reflux [...] (Auto) 70.7 H, Lymph % (Auto) 23.6, Wilcox % (Auto) 4.8, Eos % (Auto) 0.0, [...] Sl. Cloudy, Urine pH 5.0, Ur Specific [place] 1.025, Urine Protein 30 H, Urine Glucose [...] for 2 weeks. Weight loss counseling done. Scorekeeper consult DVT prophylaxis, low risk: Early ambulation encouraged Living will/advanced directive/end of life care: Patient does not have living will or advanced directive. 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 After discussion of benefits/risks procedures involved with full code,DNR CC arrest and DNR CC, the patient opted for full code. Patient does want artificial life support including intubation, tube feed, ventilator and/chest compression, central venous catheter, vasopressor and DC shock if needed Total time spent in fkjb-kf-jvdo encounter in discussion of advanced directive 17 minutes. Charges/Coding Visit Charges Inpatient E&M: 22559 Init Hosp L3 Procedures Hospitalists Procedures: 77861 Advncd Care Plan 30 Min 12/30/24 1309 <Electronically signed by David Bain MD> Cosigner Signature (if applicable): CC: VSC TRADE SPECIALIST-C Amy Solorzano; Dr. David Bain MD~ Signed [facility] Work Phone: 1(906) 677-689006-21-2025 History and physical note [facility] Medical Records Department [address] [place] [address] H&P Exam - Hospitalist 12/30/24 1248 MR#: [id number] Acct: [id number] Name: GHISLAINE GIVENS Rep #:[id number] : 1990 34 From: David Gupta PCP: BROOKLYN Warren, TRADE SPECIALIST-C Statu s:ADM IN Location: ICU CVICU20 3-1 [...] DKA therefore admitted. Vitals in normal limit. [facility] Medical History Diabetes GERD (gastroesophageal reflux [...] (Auto) 70.7 H, Lymph % (Auto) 23.6, Wilcox % (Auto) 4.8, Eos % (Auto) 0.0, [...] Sl. Cloudy, Urine pH 5.0, Ur Specific [place] 1.025, Urine Protein 30 H, Urine Glucose [...] for 2 weeks. Weight loss counseling done. Scorekeeper consult DVT prophylaxis, low risk: Early ambulation encouraged Living will/advanced directive/end of life care: Patient does not have living will or advanced directive. 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 After discussion of benefits/risks procedures involved with full code,DNR CC arrest and DNR CC, the patient opted for full code. Patient does want artificial life support including intubation, tube feed, ventilator and/chest compression, central venous catheter, vasopressor and DC shock if needed Total time spent in tvks-dy-polc encounter in discussion of advanced directive 17 minutes. Charges/Coding Visit Charges Inpatient E&M: 98814 Init Hosp L3 Procedures Hospitalists Procedures: 79358 Advncd Care Plan 30 Min 12/30/24 1309 Cosigner Signature (if applicable): CC: BROOKLYN TRADE SPECIALIST-C Amy Solorzano; Dr. David Bain MD~ Signed [facility]06-16-2025 Radiology Diagnostic study note [facility] Imaging Services [address] [place] [address] Abdomen Limited MR#: [id number] Acct: [id number] Name: GHISLAINE GIVENS Rep #: [id number] : 1990 F 34 From: Yamila Mcginnis MD PCP: BROOKLYN Warren, TRADE SPECIALIST-C Status: REG CLI Study:Abdomen Limited Date of Exam: 12/10 01/03 Exam# [id number] Ordering Dr: Nayana Peter PROCEDURE: ABDOMEN LIMITED [...] of cholelithiasis or acute cholecystitis. [facility] CC: BROOKLYN TRADE SPECIALIST-C Amy Solorzano; MIGUEL A South ~ Manager Rfid: Signed [facility]05-20-2025 Discharge summary [facility] Medical Records Department [address] [place] [address] Discharge Summary 11/28/24 1203 MR#: [id number] Acct: [id number] Name: GHISLAINE GIVENS Rep #:[id number] : 1990 34 From: Gale Lr DO PCP: BROOKLYN Warren, TANVIC Statu s:ADM IN Location: [place] [address] Providers Date of Admission: 11/25/24 Date of [...] who presented to the emergency department at [facility] on 11/25/2024 with a chief complaint of [...] (Auto) 49.8, Lymph % (Auto) 43.0 H, Wilcox % (Auto) 5.3, Eos % (Auto) 0.5, [...] as compared to prior study. Reading Location: [facility] D/C Instructions Discharge Diet: 1800 Calorie Control [...] Gale Lr Primary Care Provider: Amy Solorzano [facility] Consulting Providers: Annalise Welch; Brenda [...] tomorrow to set up appointment) Amy Solorzano, TRADE SPECIALIST-C [Primary Care Provider] - In 1 Week Disposition Disposition (needs filled in before D/C Order can be placed): Home, Self Care Charges/Coding Visit Charges Inpatient E&M: 17394 Disch Hosp >30min 11/28/24 1231 Cosigner Signature (if applicable): CC: BROOKLYN TRADE SPECIALIST-C Amy Solorzano; Dr. Gale Lr DO~ Signed [facility]05-20-2025 [facility] Progress note Author Clare Loo [facility] Note Date/Time November 28, 2024 8:41a m [facility] Medical Records Department [address] [place] [address] Progress Note - Surgery 11/28/24 0757 MR#: [id number] Acct: [id number] Name: GHISLAINE GIVENS Rep #:[id number] : 1990 34 From: Clare GRADY PA-C PCP: BROOKLYN Warren, TRADE SPECIALIST-C Statu s:ADM IN Location: MS3 XI581-4 Subjective Subjective Patient was walking the hallway [...] (Auto) 49.8, Lymph % (Auto) 43.0 H, Wilcox % (Auto) 5.3, Eos % (Auto) 0.5, [...] as compared to prior study. Reading Location: [facility] Physical Exam GI GI Narrative: Abdomen- [...] 1 week Charges/Coding Visit Charges Inpatient E&M: 42281 Subs Hosp L2 11/28/24 0841 <Electronically signed by Clare GRADY PA-C> Cosigner Signature (if applicable): CC: ~ Signed [facility] Work Phone: 1(618) 632-519705-20-2025 Progress note [facility] Medical Records Department [address] [place] [address] Progress Note - Surgery 11/28/24 4015 MR#: [id number] Acct: [id number] Name: GHISLAINE GIVENSREBA Rep #:[id number] : 1990 34 From: Clare GRADY PA-C PCP: Amy Solorzano Sara, TRADE SPECIALIST-C Statu s:ADM IN Location: MS3 XZ091-1 Subjective Subjective Patient was walking the hallway [...] (Auto) 49.8, Lymph % (Auto) 43.0 H, Wilcox % (Auto) 5.3, Eos % (Auto) 0.5, [...] as compared to prior study. Reading Location: [facility] Physical Exam GI GI Narrative: [...] 1 week Charges/Coding Visit Charges Inpatient E&M: 18381 Subs Hosp L2 11/28/24 0841 Cosigner Signature (if applicable): CC: ~ Signed [facility]05-19-2025 Progress note Author Gale Lr [facility] Note Date/Time November 27, 2024 3:45p m [facility] Medical Records Department [address] [place] [address] Progress Note - Hospitalist 11/27/24 0759 MR#: [id number] Acct: [id number] Name: GHISLAINE GIVENS Rep #:[id number] : 1990 34 From: Gale Lr DO PCP: Amy Solorzano Sara, TRADE SPECIALIST-C Statu s:ADM IN Location: [facility]3 ED390-2 Reason for Visit Reason for Visit: Abdominal [...] (Auto) 75.9 H, Lymph % (Auto) 18.1L, Wilcox % (Auto) 5.2, Eos % (Auto) 0.0, [...] fecal impaction of the rectum. Reading Location: [facility] Physical Exam Const alert, oriented x3 and [...] cessation discussed with patient Acute proctitis/colitis - Maurice to be stercoral colitis from severe constipation [...] Full code Charges/Coding Visit Charges Inpatient E&M: 57118 Subs Hosp L2 11/27/24 1544 <Electronically signed by Gale Lr DO> Cosigner Signature (if applicable): CC: ~ Signed [facility] Work Phone: 1(370) 170-976405-19-2025 Progress note Author Clare Loo [facility] Note Date/Time November 27, 2024 2:35p m [facility] Medical Records Department [address] [place] [address] Progress Note - Surgery 11/27/24 0845 MR#: [id number] Acct: [id number] Name: GHISLAINE GIVENS Rep #:[id number] : 1990 34 From: Clare GRADY PA-C PCP: BROOKLYN Warren, TRADE SPECIALIST-C Statu s:ADM IN Location: [facility]3 EU020-7 Subjective Subjective Patient evaluated rolling restlessly in [...] (Auto) 75.9 H, Lymph % (Auto) 18.1L, Wilcox % (Auto) 5.2, Eos % (Auto) 0.0, [...] this patient Charges/Coding Visit Charges Inpatient E&M: 34119 Subs Hosp L2 11/27/24 0853 <Electronically signed by Clare GRADY PA-C> Cosigner Signature (if applicable): CC: ~ Signed ADDENDUM by ESCOBAR Loo on 11/27/24 at [address] scan with Dr. eWlch. CT ab/pel demonstrated possible sludge in the [...] Cosigner Signature (if applicable): cc: ~* Signed [facility] Work Phone: 1([phone]) 837-797405-19-2025 Progress note [facility] Medical Records Department [address] [place] [address] Progress Note - Hospitalist 11/27/24 8722 MR#: [id number] Acct: [id number] Name: ABDIGHISLAINE VERENICE Rep #:[id number] : 1990 34 From: Gale Lr DO PCP: Amy Solorzano, Sara, TRADE SPECIALIST-C Statu s:ADM IN Location: [facility]3 HQ995-6 Reason for Visit Reason for Visit: Abdominal [...] (Auto) 75.9 H, Lymph % (Auto) 18.1L, Wilcox % (Auto) 5.2, Eos % (Auto) 0.0, [...] fecal impaction of the rectum. Reading Location: [facility] Physical Exam Const alert, oriented [...] cessation discussed with patient Acute proctitis/colitis - Maurice to be stercoral colitis from severe constipation [...] Full code Charges/Coding Visit Charges Inpatient E&M: 62029 Subs Hosp L2 11/27/24 1545 Cosigner Signature (if applicable): CC: ~ Signed [facility]05-19-2025 Progress note [facility] Medical Records Department [address] [place] [address] Progress Note - Surgery 11/27/24 0845 MR#: [id number] Acct: [id number] Name: GHISLAINE GIVENS Rep #:[id number] : 1990 34 From: Clare GRADY PA-C PCP: BROOKLYN Warren, TRADE SPECIALIST-C Statu s:ADM IN Location: [facility]3 JA530-8 Subjective Subjective Patient evaluated rolling restlessly in [...] 100 / 100 Balance 2049 1710 / 1849 330 / 330 Lab / Micro Data [...] (Auto) 75.9 H, Lymph % (Auto) 18.1L, Wilcox % (Auto) 5.2, Eos % (Auto) 0.0, [...] this patient Charges/Coding Visit Charges Inpatient E&M: 16086 Subs Hosp L2 11/27/24 0853 Cosigner Signature [...] Cosigner Signature (if applicable): cc: ~* Signed [facility]05-19-2025 Radiology Diagnostic study note [facility] Imaging Services [address] [place], [place] [address] Abdomen/Pelvis WITH Contrast MR#: [id number] Acct: [id number] Name: GHISLAINE GIVENS Rep #: [id number] : 1990 F 34 From: Fortino Sadler MD PCP: Amy Solorzano Sara, TRADE SPECIALIST-C Status: ADM IN Study:Abdomen/Pelvis WITH Contrast Date of Ex am: 11/27/24 Exam# [id number] Ordering Dr: Clare Loo PA-C PROCEDURE: ABDOMEN/PELVIS [...] as compared to prior study. Reading Location: [place] [address] CC: ESCOBAR Loo; Sara Solorzano ~ Manager Rfid: Signed [facility]05-18-2025 Progress note Author Brenda Rao [facility] Note Date/Time November 26, 2024 9:20a m [facility] Medical Records Department [address] [place] [address] Progress Note 11/26/24 0909 MR#: [id number] Acct: [id number] Name: GHISLAINE GIVENS Rep #:[id number] : 1990 34 From: Brenda Rao MD PCP: Amy Solorzano, BROOKLYN, PATRICE Statu s:ADM IN Location: [facility]3 FY904-6 Subjective Subjective Patient seen and examined. She [...] 79.5 H, Lymph % (Auto) 11.4 L, Wilcox % (Auto) 8.0, Eos % (Auto) 0.1, [...] Clarity Cloudy, Urine pH 6.0, Ur Specific [place] 1.025, Urine Protein 30 H, Urine Glucose [...] (Auto) 73.4 H, Lymph % (Auto) 19.4, Wilcox % (Auto) 6.2, Eos % (Auto) 0.2, [...] the colon consistent with constipation. Reading Location: [facility] Abdomen/Pelvis CT 11/25/24 11:32 IMPRESSION: 1. Fecal impaction with apparent wall thickening of the distal colon and rectumsuggesting proctitis and colitis. Clinical correlation is recommended. 2. Hepatomegaly with fatty infiltration. Reading Location: [facility] KUB X-Ray 11/26/24 08:10 IMPRESSION: Constipation with suggestion of fecal impaction of the rectum. Reading Location: [facility] Physical Exam Const alert and oriented x3 [...] Full code Charges/Coding Visit Charges Inpatient E&M: 49909 Subs Hosp L2 11/26/24 0920 <Electronically signed by Brenda Rao MD> Brenda Rao MD Cosigner Signature (if applicable): CC: ~ Signed [facility] Work Phone: 1(483) 569-236905-18-2025 History and physical note Author Brenda [facility] Note Date/Time November 26, 2024 7:54a m [facility] Medical Records Department [address] [facility] [place] [address] H&P Exam - Hospitalist 11/25/24 1324 MR#: [id number] Acct: [id number] Name: GHISLAINE GIVENS Rep #:[id number] : 1990 34 From: Brenda Rao MD PCP: BROOKLYN Warren, TRADE SPECIALIST-C Statu s:ADM IN [place] [facility] HPI - General General Date of Admission: [...] of severe constipation with likely overflow diarrhea. [facility] Medical History (Updated 11/25/24 @ 15:05 [...] 79.5 H, Lymph % (Auto) 11.4 L, Wilcox % (Auto) 8.0, Eos % (Auto) 0.1, [...] Clarity Cloudy, Urine pH 6.0, Ur Specific [place] 1.025, Urine Protein 30 H, Urine Glucose [...] the colon consistent with constipation. Reading Location: [facility] Abdomen/Pelvis CT 11/25/24 11:32 IMPRESSION: 1. Fecal impaction with apparent wall thickening of the distal colon and rectumsuggesting proctitis and colitis. Clinical correlation is recommended. 2. Hepatomegaly with fatty infiltration. Reading Location: [facility] Assessment & Plan Assessment/Plan (1) Colitis: (2) Acute proctitis: (3) Fecal impaction: PLAN: Plan # Stercoral proctocolitis with overflow diarrhea in the setting of severe constipation with fecal impaction * Admit to [facility]. Admitted with a complaint of abdominal [...] Full code Charges/Coding Visit Charges Inpatient E&M: 43182 Init Hosp L2 11/26/24 0754 <Electronically signed by Brenda Rao MD> Cosigner Signature (if applicable): CC: BROOKLYN TRADE SPECIALIST-C Amy Solorzano; Dr. Brenda Rao MD~ Signed [facility] Work Phone: 1(236) 865-375105-18-2025 Consult note Author Annalise Welch [facility] Note Date/Time November 26, 2024 7:47a m [facility] Medical Records Department [address] [place] [address] Consultation - Surgical 11/25/242050 MR#: [id number] Acct: [id number] Name: GHISLAINE GIVENS Rep #:[id number] : 1990 34 From: Annalise Welch MD PCP: BROOKLYN Warren, TRADE SPECIALIST-C Statu s:ADM IN [place] [facility] [place]W[facility] Assessment & Plan Assessment/Plan (1) Fecal impaction: (2) Acute proctitis: PLAN: Plan Discussed with patient would recommend additional enema to help soften the bowelof stool in the rectum. Along with additional ones after that. Continue IV Zosyn Discussed with patient plan to DC with laxatives. Annalise Welch M.D. Pager: [phone] [facility] [address] [place] [address], Outpatient [facility], [address] [place] [address] Office: [phone] HPI Consult Data Date of Consult: 11/26/24 [...] and did have some results with it. [facility] Medical History (Updated 11/25/24 @ 15:05 [...] 79.5 H, Lymph % (Auto) 11.4 L, Wilcox % (Auto) 8.0, Eos % (Auto) 0.1, [...] Clarity Cloudy, Urine pH 6.0, Ur Specific [place] 1.025, Urine Protein 30 H, Urine Glucose [...] the colon consistent with constipation. Reading Location: [facility] Abdomen/Pelvis CT 11/25/24 11:32 IMPRESSION: 1. Fecal impaction with apparent wall thickening of the distal colon and rectumsuggesting proctitis and colitis. Clinical correlation is recommended. 2. Hepatomegaly with fatty infiltration. Reading Location: [facility] Charges/Coding Visit Charges Inpatient E&M: 46972 Init Hosp L3 11/26/24 0747 <Electronically signed by Annalise Welch MD> Cosigner Signature (if applicable): CC: BROOKLYN TRADE SPECIALISTKaykay Solorzano~ Signed [facility] Work Phone: 1(199) 489-352305-18-2025 Progress note Author Annalise Welch [facility] Note Date/Time November 26, 2024 7:47a [facility] Medical Records Department [address] [place] [address] Progress Note - Surgery 11/26/24 0741 MR#: [id number] Acct: [id number] Name: GHISLAINE GIVENS Rep #:[id number] : 1990 34 From: Annalise Welch MD PCP: Amy Solorzano, C, TRADE SPECIALIST-C Statu s:ADM IN Location: [facility]3 TM590-3 Subjective Subjective Patient states she did have [...] 79.5 H, Lymph % (Auto) 11.4 L, Wilcox % (Auto) 8.0, Eos % (Auto) 0.1, [...] Clarity Cloudy, Urine pH 6.0, Ur Specific [place] 1.025, Urine Protein 30 H, Urine Glucose [...] (Auto) 73.4 H, Lymph % (Auto) 19.4, Wilcox % (Auto) 6.2, Eos % (Auto) 0.2, [...] the colon consistent with constipation. Reading Location: [facility] Abdomen/Pelvis CT 11/25/24 11:32 IMPRESSION: 1. Fecal impaction with apparent wall thickening of the distal colon and rectumsuggesting proctitis and colitis. Clinical correlation is recommended. 2. Hepatomegaly with fatty infiltration. Reading Location: [facility] Physical Exam Const oriented x3 [...] improved from 27-17. Annalise Welch M.D. Pager: [phone] [facility] [address] [place] [address], [address] [place] [address] Office: [phone] Charges/Coding Multi Select Codes Visit Charges Visit Charges: 64435 Subs Hosp L2 11/26/24 0747 <Electronically signed by Annalise Welch MD> Cosigner Signature (if applicable): CC: ~ Signed [facility] Work Phone: 1(420) 347-548405-18-2025 Progress note [facility] Medical Records Department [address] [place] [address] Progress Note 11/26/24 0909 MR#: [id number] Acct: [id number] Name: GHISLAIEN GIVENS Rep #:[id number] : 1990 34 From: Brenda Rao MD PCP: BROOKLYN Warren, TRADE SPECIALIST-C Statu s:ADM IN Location: [facility]3 CH647-1 Subjective Subjective Patient seen and examined. She [...] 79.5 H, Lymph % (Auto) 11.4 L, Wilcox % (Auto) 8.0, Eos % (Auto) 0.1, [...] Clarity Cloudy, Urine pH 6.0, Ur Specific [place] 1.025, Urine Protein 30 H, Urine Glucose [...] (Auto) 73.4 H, Lymph % (Auto) 19.4, Wilcox % (Auto) 6.2, Eos % (Auto) 0.2, [...] the colon consistent with constipation. Reading Location: [facility] Abdomen/Pelvis CT 11/25/24 11:32 IMPRESSION: 1. Fecal impaction with apparent wall thickening of the distal colon and rectumsuggesting proctitisand colitis. Clinical correlation is recommended. 2. Hepatomegaly with fatty infiltration. Reading Location: [facility] KUB X-Ray 11/26/24 08:10 IMPRESSION: Constipation with suggestion of fecal impaction of the rectum. Reading Location: [facility] Physical Exam Const alert and [...] Full code Charges/Coding Visit Charges Inpatient E&M: 31026 Subs Hosp L2 11/26/24 6613 Brenda Rao MD Cosigner Signature (if applicable): CC: ~ Signed [place] [address]-18-2025 Radiology Diagnostic study note [facility] Imaging Services [address] [facility] [place] [address] Abdomen Single View MR#: [id number] Acct: [id number] Name: GHISLAINE GIVENS Rep #: [id number] : 1990 F 34 From: Alicja Barfield MD PCP: BROOKLYN Warren, TRADE SPECIALIST-C Status: ADM IN Study:Abdomen Single View Date of Exam: 11/26/24 Exam# [id number] Ordering Dr: Annalise Welch MD EXAM: XR Abdomen, 1 View CLINICAL INDICATION: FECAL IMPACTION-RECTUM TECHNIQUE: Frontal supine view of the abdomen/pelvis. COMPARISON: No relevant prior studies available. FINDINGS: GASTROINTESTINAL TRACT: Constipation with suggestion of fecal impaction of the rectum. No dilation. BONES/JOINTS: Unremarkable. No acute fracture. RAD/Abdomen Single View IMPRESSION: Constipation with suggestion of fecal impaction of the rectum. Reading Location: [facility] CC: Sara TRADE SPECIALIST-C Amy Solorzano; Dr. Annalise Welch MD ~ Manager Rfid: Signed [facility]05-18-2025 History and physical note [facility] Medical Records Department [address] [place] [address] H&P Exam - Hospitalist 11/25/24 1324 MR#: [id number] Acct: [id number] Name: GHISLAINE GIVENS Rep #:[id number] : 1990 34 From: Brenda Rao MD PCP: BROOKLYN Warren, TRADE SPECIALIST-C Statu s:ADM IN Location: MS3 PO074-2 HPI - General General Date of Admission: [...] of severe constipation with likely overflow diarrhea. [facility] Medical History (Updated 11/25/24 @ 15:05 [...] 79.5 H, Lymph % (Auto) 11.4 L, Wilcox % (Auto) 8.0, Eos % (Auto) 0.1, [...] Clarity Cloudy, Urine pH 6.0, Ur Specific [place] 1.025, Urine Protein 30 H, Urine Glucose [...] the colon consistent with constipation. Reading Location: [facility] Abdomen/Pelvis CT 11/25/24 11:32 IMPRESSION: 1. Fecal impaction with apparent wall thickening of the distal colon and rectumsuggesting proctitisand colitis. Clinical correlation is recommended. 2. Hepatomegaly with fatty infiltration. Reading Location: [facility] Assessment & Plan Assessment/Plan (1) Colitis: (2) Acute proctitis: (3) Fecal impaction: PLAN: Plan # Stercoral proctocolitis with overflow diarrhea in the setting of severe constipation with fecal impaction * Admit to [facility]. Admitted with a complaint of abdominal [...] Full code Charges/Coding Visit Charges Inpatient E&M: 79194 Init Hosp L2 11/26/24 8077 Cosigner Signature (if applicable): CC: Sara TRADE SPECIALIST-C Amy Solorzano; Dr. Brenda Rao MD~ Signed [facility]05-18-2025 Consult note [facility] Medical Records Department [address] [place] [address] Consultation - Surgical 11/25/242050 MR#: [id number] Acct: [id number] Name: GHISLAINE GIVENS Rep #:[id number] : 1990 34 From: Annalise Welch MD PCP: Amy Solorzano, BROOK[place]N, TRADE SPECIALIST-C Statu s:ADM IN Location: [place] [address]-1 Assessment & Plan Assessment/Plan (1) Fecal impaction: (2) Acute proctitis: PLAN: Plan Discussed with patient would recommend additional enema to help soften the bowelof stool in the rectum. Along with additional ones after that. Continue IV Zosyn Discussed with patient plan to DC with laxatives. Annalise Welch M.D. Pager: [phone] [facility] [address] [place] [address], [facility], [address] [place] [address] Office: [phone] HPI Consult Data Date of Consult: 11/26/24 [...] ER and did havesome results with it. [facility] Medical History (Updated 11/25/24 @ 15:05 [...] 79.5 H, Lymph % (Auto) 11.4 L, Wilcox % (Auto) 8.0, Eos % (Auto) 0.1, [...] Clarity Cloudy, Urine pH 6.0, Ur Specific [place] 1.025, Urine Protein 30 H, Urine Glucose [...] the colon consistent with constipation. Reading Location: [facility] Abdomen/Pelvis CT 11/25/24 11:32 IMPRESSION: 1. Fecal impaction with apparent wall thickening of the distal colon and rectumsuggesting proctitisand colitis. Clinical correlation is recommended. 2. Hepatomegaly with fatty infiltration. Reading Location: [facility] Charges/Coding Visit Charges Inpatient E&M: 43382 Init Hosp L3 11/26/24 0747 Cosigner Signature (if applicable): CC: BROOKLYN TRADE SPECIALIST-C Amy Solorzano~ Signed [facility]05-18-2025 Progress note [facility] Medical Records Department [address] [place] [address] Progress Note - Surgery 11/26/24 0741 MR#: [id number] Acct: [id number] Name: GHISLAINE GIVENS Rep #:[id number] : 1990 34 From: Annalise Welch MD PCP: BROOKLYN Warren, TRADE SPECIALIST-Sara Statu s:ADM IN Location: UT3 VQ101-6 Subjective Subjective Patient states she did have [...] 79.5 H, Lymph % (Auto) 11.4 L, Wilcox % (Auto) 8.0, Eos % (Auto) 0.1, [...] Clarity Cloudy, Urine pH 6.0, Ur Specific [place] 1.025, Urine Protein 30 H, Urine Glucose [...] (Auto) 73.4 H, Lymph % (Auto) 19.4, Wilcox % (Auto) 6.2, Eos % (Auto) 0.2, [...] the colon consistent with constipation. Reading Location: [facility] Abdomen/Pelvis CT 11/25/24 11:32 IMPRESSION: 1. Fecal impaction with apparent wall thickening of the distal colon and rectumsuggesting proctitisand colitis. Clinical correlation is recommended. 2. Hepatomegaly with fatty infiltration. Reading Location: [facility] Physical Exam Const oriented x3 [...] improved from 27-17. Annalise Welch M.D. Pager: [phone] [facility] [address] [place] [address], [facility], [address] [place] [address] Office: [phone] Charges/Coding Multi Select Codes Visit Charges Visit Charges: 72192 Subs Hosp L2 11/26/24 0775 Cosigner Signature (if applicable): CC: ~ Signed [facility]05-17-2025 Discharge summary Author Drew Hinson [facility] Note Date/Time November 25, 2024 1:45p m [facility] Medical Records Department [address] [place], [place] [id number] Emergency Department Summary 11/25/24 MR#: [id number] Acct: [id number] Name: GHISLAINE GIVENS Rep #:[id number] : 1990 34 From: Drew Hinson MD PCP: Amy Solorzano [facility], TRADE SPECIALIST-C Statu s:REG ER Location: ED HPI HPI [...] this diagnosis. No exacerbating or alleviating factors. [facility] Medical History Wears glasses History [...] Air Room Air Room Air 11/25/24 11:00 05/17/25 12:00 Temperature 97.6 F L Temperature Source [...] 79.5 H Lymph % (Auto) 11.4 L Wilcox % (Auto) 8.0 Eos % (Auto) 0.1 [...] Clarity Cloudy Urine pH 6.0 Ur Specific [place] 1.025 Urine Protein 30 H Urine Glucose [...] the colon consistent with constipation. Reading Location: [facility] Abdomen/Pelvis CT 11/25/24 11:32 IMPRESSION: 1. Fecal impaction with apparent wall thickening of the distal colon and rectumsuggesting proctitis and colitis. Clinical correlation is recommended. 2. Hepatomegaly with fatty infiltration. Reading Location: [facility] Management Discussion w/another healthcare provider: Hospitalist (Dr. Rao) and Maintenance Mechanic Supervisor(Dr. Welch) Discharge Plan Dx/Rx/DC Orders Clinical Impression: Fecal impaction, Acute proctitis, Colitis Disposition Disposition: [facility] What to do if you have Problems For any increased pain, shortness of breath, bleeding, nausea or vomiting, chestpain, or any unexpected problems, contact your Primary Care Provider. Call [facility] ([phone]) or report to the closest Emergency Room. Call 911 if necessary. 11/25/24 1345 <Electronically signed by Drew Hinson MD> Cosigner Signature (if applicable): CC: [facility] TRADE SPECIALIST-C Amy Solorzano ~ Signed [facility] Work Phone: 1(908) 446-729105-17-2025 Evaluation note* Diagnosis Onset Date Resolution Status Admit Date Abdominal pain acute November 25, 2024 1:38pm Acute proctitis acute November 25, 2024 1:38pm Colitis acute November 25, 2024 1:38pm Diabetes acute November 25, 2024 1:38pm Fecal impaction acute November 25, 2024 1:38pm Nausea & vomiting acute November 1:38pm [facility] Work Phone: 1(725) 151-264005-17-2025 Evaluation note* Diagnosis Onset Date Resolution Status [...] December 7:52am Constipation noneactive December 13 7:52am [facility] Work Phone: 1(464) 293-509505-17-2025 Evaluation note* Diagnosis Onset Date Resolution Status [...] 2024 12:28pm Diabetic ketoacidosis acute Dec 12:28pm [facility] Work Phone: 1(493) 374-919605-17-2025 Evaluation note* Diagnosis Onset Date Resolution Status [...] peripheral neuropathy acute December 31, 2024 10:59pm [facility] Work Phone: 1([phone]) 474-453305-17-2025 Evaluation note* Diagnosis Onset Date Resolution Status [...] ketoacidosis acute Dec 10:59pm Medical non-compliance acute ne 2024 10:59pm Obesity (BMI 30-39.9) acute Dec 10:59pm Type 2 diabetes mellitus wit h peripheral neuropathy acute December 31, 2024 10:59pm [facility] Work Phone: 1(162) 228-552105-17-2025 Evaluation note* Diagnosis Onset Date Resolution Status [...] inactive Dec 10:59pm Medical non-compliance inactive Ju 2024 10:59pm Obesity (BMI 30-39.9) inactive Dec 10:59pm Type 2 diabetes mellitus wit h peripheral neuropathy inactive December 31, 2024 10:59pm [facility] Work Phone: 1([phone]) 179-253505-17-2025 Discharge summary Author Drew Hinson [facility] Note Date/Time November 25, 2024 1:45p m [facility] Medical Records Department [address] [place] [address] Emergency Department Summary 11/25/24 MR#: [id number] Acct: [id number] Name: GHISLAINE GIVENS Rep #:[id number] : 1990 34 From: Drew Hinson MD PCP: BROOKLYN Warren, TRADE SPECIALIST-C Statu s:REG ER Location: ED HPI HPI [...] this diagnosis. No exacerbating or alleviating factors. [facility] Medical History Wears glasses History [...] 79.5 H Lymph % (Auto) 11.4 L Wilcox % (Auto) 8.0 Eos % (Auto) 0.1 [...] Clarity Cloudy Urine pH 6.0 Ur Specific [place] 1.025 Urine Protein 30 H Urine Glucose [...] the colon consistent with constipation. Reading Location: [facility] Abdomen/Pelvis CT 11/25/24 11:32 IMPRESSION: 1. Fecal impaction with apparent wall thickening of the distal colon and rectumsuggesting proctitis and colitis. Clinical correlation is recommended. 2. Hepatomegaly with fatty infiltration. Reading Location: [facility] Management Discussion w/another healthcare provider: Hospitalist (Dr. Rao) and Maintenance Mechanic Supervisor(Dr. Welch) Discharge Plan Dx/Rx/DC Orders Clinical Impression: Fecal impaction, Acute proctitis, Colitis Disposition Disposition: Acute Care Hospital [facility] What to do if you have Problems For any increased pain, shortness of breath, bleeding, nausea or vomiting, chestpain, or any unexpected problems, contact your Primary Care Provider. Call [facility] ([phone]) or report to the closest Emergency Room. Call 911 if necessary. 11/25/24 1345 <Electronically signed by Drew Hinson MD> Cosigner Signature (if applicable): CC: BROOKLYN TRADE SPECIALIST-C Amy Solorzano ~ Signed [facility] Work Phone: [phone]) 330-842405-17-2025 Discharge summary [facility] Medical Records Department [address] [place] [address] Emergency Department Summary 11/25/24 MR#: [id number] Acct: [id number] Name: GHISLAINE GIVENS Rep #:[id number] : 1990 34 From: Drew Hinson MD PCP: BROOKLYN Warren, TRADE SPECIALIST-C Statu s:REG ER Location: ED HPI HPI [...] confirm this diagnosis. Noexacerbating or alleviating factors. [facility] Medical History Wears glasses History [...] 79.5 H Lymph % (Auto) 11.4 L Wilcox % (Auto) 8.0 Eos % (Auto) 0.1 [...] Clarity Cloudy Urine pH 6.0 Ur Specific [place] 1.025 Urine Protein 30 H Urine Glucose [...] the colon consistent with constipation. Reading Location: [facility] Abdomen/Pelvis CT 11/25/24 11:32 IMPRESSION: 1. Fecal impaction with apparent wall thickening of the distal colon and rectumsuggesting proctitisand colitis. Clinical correlation is recommended. 2. Hepatomegaly with fatty infiltration. Reading Location: [facility] Management Discussion w/another healthcare provider: Hospitalist (Dr. Rao) and Maintenance Mechanic Supervisor(Dr. Welch) Discharge Plan Dx/Rx/DC Orders Clinical Impression: Fecal impaction, Acute proctitis, Colitis Disposition Disposition: Acute Care Hospital [facility] What to do if you have Problems For any increased pain, shortness of breath, bleeding, nausea or vomiting, chestpain, or any unexpected problems, contact your Primary Care Provider. Call [facility] ([phone]) or report tothe closest Emergency Room. Call 911 if necessary. 11/25/24 1345 Cosigner Signature (if applicable): CC: BROOK[place]N TRADE SPECIALIST-C Amy Solorzano ~ Signed [facility]05-17-2025 Radiology Diagnostic study note [facility] Imaging Services [address] [facility] [place] [address] Abdomen/Pelvis W IV Cont ONLY MR#: [id number] Acct: [id number] Name: GHISLAINE GIVENS Rep #: [id number] : 1990 F 34 From: Alicja Barfield MD PCP: BROOKLYN Warren, TRADE SPECIALIST-C Status: REG ER Study:Abdomen/Pelvis W IV Cont ONLY Date of E xam: 11/25/24 Exam# [id number] Ordering Dr: Drew Hinson MD EXAM: CT [...] 2. Hepatomegaly with fatty infiltration. Reading Location: [facility] CC: [facility] TRADE SPECIALIST-C Amy Solorzano; Dr. Drew Hinson MD ~ Manager Rfid: Signed [facility]05-17-2025 Radiology Diagnostic study note [facility] Imaging Services [address] [place] [address] 176361 Acute Abdomen Inc Chest MR#: [id number] Acct: [id number] Name: GHISLAINE GIVENS Rep #: [id number] : 1990 F 34 From: Alicja Barfield MD PCP: BROOKLYN Warren, TRADE SPECIALIST-C Status: REG ER Study:Acute Abdomen Inc Chest Date of Exam: 11/25/24 Exam# [id number] Ordering Dr: Drew Hinson MD EXAM: XR [...] the colon consistent with constipation. Reading Location: [facility] CC: [facility] TRADE SPECIALIST-C Amy Solorzano; Dr. Drew Hinson MD ~ Manager Rfid: Signed [facility]12-23-2024 NoteHNO ID: [id number] Author: IRAIS HANNA PA Service: ? Author Type: Physician Court Usher Type: Progress Notes Filed: 07/03/2024 13:13 Note Text: This note was created using [employer]. Subjective Ghislaine Givens is a 34 year [...] treatment plan were d (more content not included)...[facility]12-23-2024 History of Present illness Narrative* Irais Hanna PA - 07/03/2024 1:11 PM EST This note was created using [employer]. Subjective Ghislaine Givens is a 34 year [...] evaluation. MIGUEL A Goldman [facility] History of Present illness Narrative* [...] PATIENT PRESENTS WITH AN IMPLANTABLE OR ATTACHED FINANCIAL AID MANAGER: No RADIOLOGY DEPARTMENT: General X-ray: Exam(s) Completed: Chest X-Ray PERIPHERAL IV DATA: Not applicable SIGNED BY: RT Los(Reji) July 03, 2024 12:58 PM documented in this encounterTr[facility]12-23-2024 NoteHNO ID: [id number] Author: LUIS MAYES RT(R) Service: Radiology Author [...] PATIENT PRESENTS WITH AN IMPLANTABLE OR ATTACHED FINANCIAL AID MANAGER: No RADIOLOGY DEPARTMENT: General X-ray: Exam(s) Completed: Chest X-Ray PERIPHERAL IV DATA: Not applicable SIGNED BY: RT Los(R) July 03, 2024 12:58 [facility]12-16-2024 NoteHNO ID: [id number] Author: FRANTZ AREVALO PA-C Service: ? Author Type: Physician Court Usher Type: Progress Notes Filed: 06/26/2024 11:03 Note Text: This note was created using Xelor Software[employer]. Subjective Ghislaine Givens is a 34 year [...] - ICD9: 493.90, ICD10: J45.20 MIGUEL A [facility]12-16-2024 History of Present illness Narrative* Frantz Arevalo PA-C - 06/26/2024 10:55 AM EST This note was created using [employer]. Subjective Ghislaine Givens is a 34 year [...] J45.20 Frantz Arevalo PA-C documented in this encounterTr[facility]01-12-2024 Procedure [facility]12-21-2023 History of Present illness Narrative* Andres Galaviz APRN.[facility] - 07/01/2023 10:42 AM EST Images [...] ophthalmology. Appointment scheduled today 115. Andres Galaviz APRN.[employer] SAFETY PROGRAM COORDINATOR documented in this encounterTr[facility]12-[facility]-2023 Discharge summary Author Alex Christiansen [facility] June 26, 2023 6:14pm Note Date/Time June 26, 2023 12:09pm [facility] Medical Records Department [address] [place] [address] Emergency Department Summary 06/26/23 MR#: [id number] Acct: [id number] Name: GHISLAINE GIVENS Rep #:[id number] : 1990 33 From: Taiwo Chen MD [...] pharmacy. She denies any other new symptoms. [facility] Medical History Anxiety Asthma Constipation [...] mg rectal suppository (Dulcolax (bisacodyl)) 10 mg NE DAILY 3 days #12 ea 01/15/23 [Rx [...] % (Auto) 63.6 Lymph % (Auto) 30.6 Wilcox % (Auto) 4.3 Eos % (Auto) 0.2 [...] [Dulcolax (bisacodyl)] 10 mg suppository 10 mg NE DAILY 3 Days Qty: 12 0RF Rx [...] your Primary Care Provider. Call [facility] ([phone]) or report to the closest Emergency Room. [...] applicable): cc: Dr. Sophy Gibbons ~* Signed [facility] Work Phone: 1(523) 402-198210-29-2023 Progress note Author Rickey Gifford [facility] May 09, 2023 11:46am Note Date/Time May 09, 2023 7 :55am [facility] Medical Records Department [address] [place] [address] Progress Note - Hospitalist 05/09/23 0752 MR#: [id number] Acct: [id number] Name: GHISLAINE GIVENS Rep #:[id number] : 1990 33 From: Rickey Gifford DO PCP: Care Physician,No Primary Status :ADM IN Location: [place] [address] Reason for Visit Reason for Visit: Diagnoses [...] does have constipation. Also reviewing records through [employer]. Charges/Coding Visit Charges Inpatient E&M: 21499 Subs Hosp L3 05/09/23 1146 <Electronically signed by Rickey Gifford DO> Cosigner Signature (if applicable): CC: ~ Signed [facility] Work Phone: 1(100) 436-321110-29-2023 Progress note Author Abdirizak Forrest [facility] May 09, 2023 10:47am Note Date/Time May 09, 2023 1 0:19am [facility] Medical Records Department [address] [place] [address] Progress Note - Surgery 05/09/23 1018 MR#: [id number] Acct: [id number] Name: GHISLAINE GIVENS Rep #:[id number] : 1990 33 From: Abdirizak Gupta PM PCP: Care Physician,No Primary Status :ADM IN Location: [place]3 ER085-6 Subjective Subjective Ms. Givens is a 33-year-old [...] Cosigner Signature (if applicable): CC: ~ Signed [facility] Work Phone: 1(350) 158-849610-28-2023 Progress note Author Rickey Gifford [facility] May 08, 2023 10:48am Note Date/Time May 08, 2023 7 :51am [facility] Medical Records Department [address] [place] [address] Progress Note - Hospitalist 05/08/23 0749 MR#: [id number] Acct: [id number] Name: GHISLAINE GIVENS Rep #:[id number] : 1990 33 From: Rickey Gifford DO PCP: Care Physician,No Primary Status :ADM IN Location: [place]3 HW092-7 Reason for Visit Reason for Visit: Diagnoses [...] with enoxaparin. Charges/Coding Visit Charges Inpatient E&M: 42051 Subs Hosp L2 05/08/23 1048 <Electronically signed by Rickey Gifford DO> Cosigner Signature (if applicable): CC: ~ Signed [facility] Work Phone: 1(376) 971-679810-28-2023 Progress note Author Abdirizak Forrest [facility] May 08, 2023 10:31am Note Date/Time May 08, 2023 9 :18am [facility] Medical Records Department [address] [place] [address] Progress Note - Surgery 05/08/23 0917 MR#: [id number] Acct: [id number] Name: GHISLAINE GIVENS Rep #:[id number] : 1990 33 From: Abdirizak COELLO PCP: Care Physician,No Primary Status :ADM IN [place]: [facility] SN[facility]-0 Subjective Subjective Mrs. Givens is a 33-year-old [...] Cosigner Signature (if applicable): CC: ~ Signed [facility] Work Phone: 1(102) 498-409710-27-2023 Procedure [facility] 05-07-2023 Progress note Author Rickey Gifford [facility] May 07, 2023 12:40pm Note Date/Time May 07, 2023 1 2:36pm [facility] Medical Records Department [address] [place] [address] Progress Note - Hospitalist 05/07/23 1229 MR#: [id number] Acct: [id number] Name: GHISLAINE GIVENS Rep #:[id number] : 1990 33 From: Rickey Gifford DO PCP: Care Physician,No Primary Status :ADM IN Location: [place]3 DJ755-3 Reason for Visit Reason for Visit: Diagnoses [...] her symptoms. Charges/Coding Visit Charges Inpatient E&M: 73517 Subs Hosp L2 05/07/23 1240 <Electronically signed by Rickey Gifford DO> Cosigner Signature (if applicable): CC: ~ Signed [facility] Work Phone: 1(223) 211-615310-26-2023 Consult note Author [facility] May 06, 2023 4:46pm Note Date/Time May 04, 2023 8 :30pm [facility] Medical Records Department [address] [facility] [place] [address] Pharmacokinetic/Renal -Consult 05/04/232026 MR#: [id number] Acct: [id number] Name: GHISLAINE GIVENS Rep #:[id number] : 1990 33 From: Otto enamorado PCP: Care Physician,No Primary Status :ADM IN Location: [place] [address] Consult Antibiotic Management Pharmacy has been consulted [...] will continue with 1000mg IV q8h per [facility] dosing protocol. Will check a [...] Date Rickey Gifford DO CC: ~ Signed [facility] Work Phone: 1(616) 978-575210-26-2023 Consult note Author Rickey Gifford [facility] May 06, 2023 4:46pm Note Date/Time May 05, 2023 2 :05pm [facility] Medical Records Department [address] [facility] [place] [address] Pharmacokinetic/Renal -Consult 05/05/23 1404 MR#: [id number] Acct: [id number] Name: GHISLAINE GIVENS Rep #:[id number] : 1990 33 From: Gage Trejo PCP: Care Physician,No Primary Status :ADM IN Y Location: [place] [address] Consult Antibiotic Management Pharmacy has been consulted [...] Date Rickey Gifford DO CC: ~ Signed [facility] Work Phone: 1(704) 594-948410-26-2023 Progress note Author Rickey Gifford [facility] May 06, 2023 2:03pm Note Date/Time May 06, 2023 8 :47am [facility] Medical Records Department [address] [place] [address] Progress Note - Hospitalist 05/06/23 0844 MR#: [id number] Acct: [id number] Name: GHISLAINE GIVENSREBA Rep #:[id number] : 1990 33 From: Rickey Gifford DO PCP: Care Physician,No Primary Status :ADM IN Location: [address] Reason for Visit Reason for Visit: [...] (Auto) 40.5 L, Lymph % (Auto) 49.6H, Wilcox % (Auto) 8.4, Eos % (Auto) 0.3, [...] 11:07 EDT Reading Location ID and State: [facility] / [place] , Service support , Physical Exam Const [...] with enoxaparin. Charges/Coding Visit Charges Inpatient E&M: 68027 Subs Hosp L1 05/06/23 1403 <Electronically signed by Rickey Gifford DO> Cosigner Signature (if applicable): CC: ~ Signed [facility] Work Phone: 1(634) 612-831210-26-2023 Progress note Author Abdirizak Forrest [facility] May 06, 2023 8:10am Note Date/Time May 06, 2023 8 :10am [facility] Medical Records Department [address] [place] [address] Progress Note - Surgery 05/06/23 0802 MR#: [id number] Acct: [id number] Name: GHISLAINE GIVENS Rep #:[id number] : 1990 33 From: Abdirizak Gupta PM PCP: Care Physician,No Primary Status :ADM IN Location: MS3 ZV079-3 Subjective Subjective Ms. Givens is a 33-year-old [...] (Auto) 40.5 L, Lymph % (Auto) 49.6H, Wilcox % (Auto) 8.4, Eos % (Auto) 0.3, [...] Cosigner Signature (if applicable): CC: ~ Signed [facility] Work Phone: 1(368) 661-982410-25-2023 Progress note Author Rickey Gifford [facility] May 05, 2023 1:09pm Note Date/Time May 05, 2023 7 :49am [facility] Medical Records Department [address] [place] [address] Progress Note - Hospitalist 05/05/23 0745 MR#: [id number] Acct: [id number] Name: GHISLAINE GIVENS Rep #:[id number] : 1990 33 From: Rickey Gifford DO PCP: Care Physician,No Primary Status :ADM IN Location: [place] [address]1 Reason for Visit Reason for Visit: Diagnoses [...] 73.2 H, Lymph % (Auto) 14.9 L, Wilcox % (Auto) 10.2 H, Eos % (Auto) [...] % (Auto) 56.9, Lymph % (Auto) 30.9, Wilcox % (Auto) 11.1 H, Eos % (Auto) [...] with enoxaparin. Charges/Coding Visit Charges Inpatient E&M: 21719 Subs Hosp L2 05/05/23 1309 <Electronically signed by Rickey Gifford DO> Cosigner Signature (if applicable): CC: ~ Signed [facility] Work Phone: 1(987) 889-942110-25-2023 Progress note Author Abdirizak Forrest [facility] May 05, 2023 10:17am Note Date/Time May 05, 2023 8 :29am [facility] System Medical Records Department [address] [place] [address] 23054 Progress Note - Surgery 05/05/23 0829 MR#: [id number] Acct: [id number] Name: GHISLAINE GIVENS Rep #:[id number] : 1990 33 From: Abdirizak Gupta PM PCP: Care Physician,No Primary Status :ADM IN Location: MS3 SN542-1 Subjective Subjective Ms. Givens is a 33-year-old [...] 73.2 H, Lymph % (Auto) 14.9 L, Wilcox % (Auto) 10.2 H, Eos % (Auto) [...] % (Auto) 56.9, Lymph % (Auto) 30.9, Wilcox % (Auto) 11.1 H, Eos % (Auto) [...] Cosigner Signature (if applicable): CC: ~ Signed [facility] Work Phone: 1(132) 933-620910-24-2023 Consult note Author Abdirizak Forrest [facility] May 04, 2023 5:02pm Note Date/Time May 04, 2023 4 :48pm [facility] System Medical Records Department [address] [place] [address] Consultation 05/04/23 1642 MR#: [id number] Acct: [id number] Name: GHISLAINE GIVENS Rep #:[id number] : 1990 33 From: Abdirizak Gupta PM PCP: Care Physician,No Primary Status :[facility] Location: [facility] A-1 Assessment & Plan Assessment/Plan (1) Type [...] is a 33 F who presented to [facility] emergency department for concerns for worsening redness, [...] No other pedal complaints at this time. [facility] Medical History Anxiety Asthma Constipation Depression [...] mg rectal suppository (Dulcolax (bisacodyl)) 10 mg NE DAILY 3 days #12 ea 01/15/23 [Rx [...] 25 mg rectal suppository (Promethegan) 25 mg NE Q6H PRN PRN Nausea #6 supp 04/13/23 [...] 73.2 H, Lymph % (Auto) 14.9 L, Wilcox % (Auto) 10.2 H, Eos % (Auto) [...] applicable): CC: No Primary Care Physician~ Signed [facility] Work Phone: 1(360) 272-806310-24-2023 Procedure [facility] 05-04-2023 Discharge summary Author Javy Doss [facility] May 04, 2023 3:49pm Note Date/Time May 04, 2023 1 0:56am [facility] Health System Medical Records Department [address] [place] [address] Emergency Department Summary 05/04/23 MR#: [id number] Acct: [id number] Name: GHISLAINE GIVENS Rep #:[id number] : 1990 33 From: Javy Doss DO PCP: Care Physician,No Primary Status :[facility] Location: [facility] A-1 HPI History of Present Illness Chief [...] denies any fever. Patient is a diabetic. [facility] Medical History (Updated 05/04/23 @ [...] mg rectal suppository (Dulcolax (bisacodyl)) 10 mg NE DAILY 3 days #12 ea 01/15/23 [Rx [...] 25 mg rectal suppository (Promethegan) 25 mg NE Q6H PRN PRN Nausea #6 supp 04/13/23 [...] 73.2 H Lymph % (Auto) 14.9 L Wilcox % (Auto) 10.2 H Eos % (Auto) [...] Diabetes, Leukocytosis Disposition Disposition: Acute Care Hospital [facility] Discharge Date/Time: 05/04/23 15:25 What to do if you have Problems For any increased pain, shortness of breath, bleeding, nausea or vomiting, chestpain, or any unexpected problems, contact your Primary Care Provider. Call [facility] ([phone]) or report to the closest Emergency Room. Call 911 if necessary. 05/04/23 154 <Electronically signed by Javy Doss DO> Cosigner Signature (if applicable): CC: No Primary Care Physician ~ Signed [facility] Work Phone: [phone]) 828-912710-24-2023 History and physical note Author Rickey Gifford [facility] May 04, 2023 1:14pm Note Date/Time May 04, 2023 1 :13pm [facility] Medical Records Department [address] [place] [address] 05702 H&P Exam - Hospitalist 05/04/23 1309 MR#: [id number] Acct: [id number] Name: GHISLAINE GIVENS Rep #:[id number] : 1990 33 From: Rickey Gifford DO [...] Patient received vancomycin in the emergency room. [facility] Medical History (Updated 05/04/23 @ 13:11 [...] mg rectal suppository (Dulcolax (bisacodyl)) 10 mg NE DAILY 3 days #12 ea 01/15/23 [Rx [...] 25 mg rectal suppository (Promethegan) 25 mg NE Q6H PRN PRN Nausea #6 supp 04/13/23 [...] 73.2 H, Lymph % (Auto) 14.9 L, Wilcox % (Auto) 10.2 H, Eos % (Auto) [...] with enoxaparin. Charges/Coding Visit Charges Inpatient E&M: 77326 Init Hosp L2 05/04/23 1316 <Electronically signed by Rickey Gifford DO> Cosigner Signature (if applicable): CC: Dr. Rickey Gifford DO; No Primary Care Physician~ Signed [facility] Work Phone: 1(302) 630-200010-24-2023 History and physical note Author Rickey Gifford [facility] May 04, 2023 1:14pm Note Date/Time May 04, 2023 1 :13pm [facility] Health System Medical Records Department [address] [place] [address] 37350 H&P Exam - Hospitalist 05/04/23 1309 MR#: [id number] Acct: [id number] Name: GHISLAINE GIVENS Rep #:[id number] : 1990 33 From: Rickey Gifford DO [...] Patient received vancomycin in the emergency room. [facility] Medical History (Updated 05/04/23 @ 13:11 [...] mg rectal suppository (Dulcolax (bisacodyl)) 10 mg NE DAILY 3 days #12 ea 01/15/23 [Rx [...] 25 mg rectal suppository (Promethegan) 25 mg NE Q6H PRN PRN Nausea #6 supp 04/13/23 [...] 73.2 H, Lymph % (Auto) 14.9 L, Wilcox % (Auto) 10.2 H, Eos % (Auto) [...] 11:59 EDT Reading Location ID and State: [facility] / [place] , Service support , Assessment & Plan [...] with enoxaparin. Charges/Coding Visit Charges Inpatient E&M: 56573 Init Hosp L2 05/04/23 1314 <Electronically signed by Rickey Gifford DO> Cosigner Signature (if applicable): CC: Dr. Rickey Gifford DO; No Primary Care Physician~ Signed [facility] Work Phone: 1(734) 909-584310-05-2023 History of Present illness Narrative* Abdirizak Peña APRN.CNP - 04/15/2023 11:13 AM EDT Patient triaged at [facility]. Here today with abd pain and sob, patients crying. Breathing easy but appears in pain. O2 100% on RA. Will refer to ER, declines squad, friend to drive to ER. documented in [facility]Tr[facility] History of Present illness Narrative* Claritza Sierra - 03/26/2023 2:21 PM EDT POPULATION HEALTH NAVIGATION OUTREACH Action/I [facility] Support: Called pt to schedule an appt in Pain Management. Lvm for pt to call [phone] for scheduling. Patient Identified by Name and : NO Outreach Outcome/Action Unable to reach patient: Left message Did you use a PCP flex slot to schedule this appointment? No Reason for Outreach Care Gap or Scheduling/Wellness visits Payer: Payor: [place] [employer] / Plan: [employer] [facility] / Product Type: Medicaid / Care Gap [...] 26, 2023 2:22 PM documented in this encounterTr[facility]09-01-2023 History of Present illness Narrative* Pilar Magdaleno APRN.CNP - 03/12/2023 12:12 PM EDT Please let patient know Dr. Sun is not in network. I have placed an order for pain management [facility] the [facility]. documented in this encounterTr[facility]08-29-2023 Miscellaneous Notes* Telephone Encounter - Milagros Cloud RN - 03/09/2023 12:35 PM EDT Boyfriend calls and not listed on chart. Requested to speak to patient. Patient requesting pain management referral be faxed to Dr. Lr. Faxed per request to [phone]. Milagros Cloud RN documented in this encounterTrinity [facility]08-24-2023 NoteHNO ID: [id number] Author: Kelley Lopez MD Service: ? Author Type: Physician Type: Progress Notes Filed: 03/11/2023 7:18 AM Note Text: Documentation Query Based on your medical judgment of the clinical indicators outlined below, please clarify the condition: (Please type X next to your response and sign) Clinical indicators: 03.03.23 Gastroenterology note AUTO CLUB SAFETY PROGRAM COORDINATOR: Plan: Nausea with vomiting Generalized abdominal [...] X Other, please specify___due to psychiatric problems [facility]08-24-2023 NoteHNO ID: [id number] Author: Kelley Lopez MD Service: ? Author [...] by psych and GI. Discussed with social insurance adviser/case picker. OK to discharge the patient. Rest of management as outpatient. I personally spent more than 30 minutes for discharge of this patient. Discussed with unit PA/AUTO CLUB SAFETY PROGRAM COORDINATOR about care plans. Recommended to see [...] MD DATE: March 04, 2023 TIME: 11:57 [facility]08-24-2023 NoteHNO ID: [id number] Author: Cary Pino RN Service: Care Management [...] No Caregiver needed Transportation Arrangements Transportation Arrangements: [employer] Transportation Agency and Phone #:: [place] [employer] [phone] Date of Trip: 03/04/23 Time of Trip: 1730 Type of Service: Wheelchair Is Patient Medicaid Pending?: No Was transportation financial coverage discussed with family?: Patient Car Dumper Operator Location: [facility] Destination: Home Financial Care [...] ED to Hosp-Admission (Current) from 03/01/2023 in [facility] Observation Unit Medical Follow-Up Appointment Specialty Psychaitry Behavior Health/Jose L Mccarthy Provider Name [facility] Address [address], [place] [address] Additional Instructions Please call for appointment to establish physician for mental health SIGNATURE: Cary Pino RN PATIENT NAME: Ghislaine Givens DATE: March 04, 2023 TIME: 11:26 AM CONTACT #: [phone] NoteHNO ID: [id number] Author: Cary Pino RN Service: Care Management [...] 04, 2023 TIME: 11:25 AM PAGER/CONTACT #: [phone] Note HNO ID: [id number] Author: Kelley Lopez MD Service: ? Author [...] to discharge in AM. Discussed with social insurance adviser/case picker. Advance diet. Physical Examination: GENERAL: alert, no [...] MD DATE: March 03, 2023 TIME: 3:[address] [facility]08-23-2023 NoteHNO ID: [id number] Author: Frida Scott APRN.AUTO CLUB SAFETY PROGRAM COORDINATOR Service: Gastroenterology Author Type: Nurse Practitioner Type: Plan of Care Filed: 03/03/2023 11:30 AM Note Text: DEPARTMENT OF GASTROENTEROLOGY AND HEPATOLOGY [facility] INPATIENT VISIT DATE AND [...] mild gastritis and an esophageal ulcer at [facility]. Patient presented from outpatient GI clinic in [...] and re-consult as needed. SIGNATURE: Frida Scott APRN.AUTO CLUB SAFETY PROGRAM COORDINATOR PAGER/CONTACT #: For concerns during days 7a-5p, contact TRADE SPECIALIST directly [phone] Please page [phone] for covering attending concernsNortheast [facility]08-22-2023 Telephone encounter Note* Telephone Encounter - Almita Kelly PA-C - 03/02/2023 2:30 PM EDT Hi, The patient needs outpatient GES for persistent nausea and vomiting once optimized. Orders placed. The patient is a Dr. Doran patient and should follow- up with him. Thanks! Almita Kelly PA-C Gastroenterology and Hepatology [facility]08-22-2023 Miscellaneous Notes* Telephone Encounter - Almita Kelly PA-C - 03/02/2023 2:30 PM EDT Hi, The patient needs outpatient GES for persistent nausea and vomiting once optimized. Orders placed. The patient is a Dr. Doran patient and should follow- up with him. Thanks! Almita Kelly PA-C Gastroenterology and Hepatology documented in this encounterTrinity Health System [facility]08-22-2023 History of Present illness Narrative* Claritza Sierra - 03/02/2023 1:27 PM EDT POPULATION HEALTH NAVIGATION OUTREACH Action/[facility] [place] Support: Called pt to schedule an appt [...] [place] [employer] / Plan: [employer] [facility] / Product Type: Medicaid / Care Gap [...] 02, 2023 1:27 PM documented in this encounterTrinity Health System [facility]08-22-2023 NoteHNO ID: [id number] Author: Ghislaine Mancilla, RYNE Service: ? Author Type: Registered Nurse Type: Progress Notes Filed: 03/02/2023 5:47 PM Note Text: IV access lost. X2 RN attempted to get new access with no success. AMET and NOM notified and states will come and attempt soon. TRADE SPECIALIST notified via secure chat. Patient also complains of pain for second time this shift and TRADE SPECIALIST notified for second time as well. States tylenol did not work when given during morning medication rounds. Patient now walking halls as she states movement helps with pain at times. Informed TRADE SPECIALIST of patient calus/wound to right foot as [...] aware and MOVIPREP will be moved to rotational moulding operator to attempt at a later time. As patient states she cannot tolerate drinking. 1730 Patient ordered oral contrast dye with CT. lead technical writer states patient refusing to drink oral contrast. GI made aware via secure chat but no changes to orders made at this time. Patient will be sent to room with contrast dye per lead technical writer. If pt drinks contrast and can keep in her body CT asked to be called and patient will then have the scan.[facility] 03-02-2023 NoteHNO ID: [id number] Author: Cary Pino RN Service: Care Management [...] Relation: Grandparent Admission Status: Inpatient Insurance Provider: [facility] [employer] [place] Discharge Planning requested by: Per Department Practice Potential Transition Plans Home Advance Directives Current Advance Directive: None Physics Technical Officer Attempted to Assist with AD Completion: Yes [...] General wellness, Be able to go home [place] Explained: [place] Given: No Reason Not Given: [...] during this admission, please contact Case Management. [phone]. [employer] transport will be needed once stable for discharge. HX Depression Bipolar disorder DM SIGNATURE: Cary Pino RN PATIENT NAME: Ghislaine Givens DATE: March 02, 2023 TIME: 8:46 AM CONTACT #: [phone] History of Present illness Narrative* Dewayne Doran MD - 03/01/2023 10:40 AM EDT NAME: Ghislaine Givens AGE: [age] year old Referred by: Pilar Magdaleno [address] [place] [address] Referred for: an opinion regarding nausea and [...] Past Histories independently gathered by the clinical application support intern and the remaining scribed note accurately describes [...] PHYSICIAN Dewayne Doran MD documented in this encounterTrinity Health [facility]08-15-2023 History of Present illness Narrative* Pilar Magdaleno, [facility] - 02/23/2023 10:11 AM EDT Chief Complaint Patient presents with: [facility] F/U [facility] Ghislaine Givens is a 33 [...] - CONSULT TO PAIN MGT Pilar Magdaleno APRN.AUTO CLUB SAFETY PROGRAM COORDINATOR documented in this encounterTrinity Health System [facility]08-08-2023 Note. MICRO - Microbiology PROCEDURE: [...] Locations *1: This test was performed at: [facility], [address] [place] [address], [facility]- , Counts include 234 beds at the [facility] ([place])02-16-2023 Note. MICRO - Microbiology PROCEDURE: Blood Culture [...] Locations *1: This test was performed at: [facility], [address] [place] [address], [address]- , Counts include 234 beds at the [facility] [place]02-11-2023 Hospital Discharge instructions Patient Education 02/11/2023 17:15:56 [...] as coffee and soda. Take and apply gfzm-wdr-zkaaidw and prescription medicines only as told by [...] 10/06/2017 Document Revised: 11/04/2018 Document Reviewed: 10/06/2017 [employer] Patient Education 2020 [employer]. 02/11/2023 17:15:45 Nausea, Adult, Fwpy-uu-Swji Nausea, Adult Nausea is feeling sick to [...] fruit juice). ?Low-calorie sports drinks. Eat bland, tlhg-ad-mqncob foods in small amounts as you are able, such as: ?Bananas. ?Applesauce. ?Rice. ?Low-fat (lean) meats. ?C[place]. ?Crackers. Avoid drinking fluids that have a lot of sugar or caffeine in them. This includes energy drinks, sports drinks, and soda. Avoid alcohol. Avoid spicy or fatty foods. General instructions Take hxzd-trm-tvbwxti and prescription medicines only as told by your doctor. Rest at home while you get better. Drink enough fluid to keep your pee (urine) pale yellow. Take slow and deep breaths when you feel sick to your stomach. Avoid food or things that have strong smells. Wash your hands often with soap and water. If you cannot use soap and water, use hand yacht captain. Make sure that all people in your [...] drink what your doctor tells you. Take wyng-ebx-vffkysk and prescription medicines only as told by [...] 06/16/2012 Document Revised: 12/06/2018 Document Reviewed: 12/06/2018 [employer] Patient Education 2020 [employer] Follow Up Care 02/10/2023 23:24:03 With:AMY SOLORZANO APRN-AUTO CLUB SAFETY PROGRAM COORDINATOR Address: [address] [place] [address]- [phone] When:3-5 days Comments:Please call to schedule your post-hospital follow-up appointment. [facility] 08-03-2023 Note Date of Service 02/11/2023 Chief Complaint C/o generalized ABD pain, N/V, multiple recent falls. States she has not been checking her blood sugar either. States she is supposed to be using insulin for DM. History of Present Illness 33-year-old female with past medical history significant for HTN, type 2 diabetes mellitus, neuropathy, depression/anxiety, asthma, cannabis use. Patient presented to [facility] emergency department on 02/10/2023 with a [...] and pelvis with contrast. 01/07/2023 and 01/09/2023 [facility] ED visit 01/10/[address] [facility] ED visit. CT abdomen and pelvis with contrast that showed left hydrosalpinx, mildly dilated CBD with adjacent more than expected khurram hepatis adenopathy which may be reactive. She was treated with IV fluids and antiemetics and discharged. 01/12/2023 and 01/13/2023 [facility] ED visit treated with IV fluids and antiemetics, haldol and discharged. 01/14/2023 [facility] emergency department visit. IV fluids and antiemetics given. Admitted for hypokalemia. CT abdomen and pelvis with bilateral small ovarian cysts. 01/17/[address] [facility] [address] [address]. [address] abdomen and pelvis with contrast showed underfilling versus mucosal thickening at rectosigmoid colon. Otherwise unremarkable. 01/24 [facility] emergency department visit. Discharged with a prescription for Keflex and Reglan. No imaging done. 01/25 [facility] emergency department treated with IV fluids and antiemetics. 727: She was seen in urgent care and advised to go to the emergency department. [facility] ED visit treated with IV fluids and antiemetics and discharged. She was seen at [facility] on 02/08. She had CT [...] by MARTI WEBB on 02/11/2023 07:[address] [facility]08-03-2023 Note Discharge Instructions Thank you for allowing [facility] to assist you with your healthcare needs. The following is importantdischarge information regarding your hospital visit. Your Care Team [facility] Your Diagnosis Abdominal pain Hyponatremia [...] to schedule your post-hospital follow-up appointment. Where: [address] [place] [address] [phone] The Following Activity and Diet Have Been [...] a day Duration: 7 Days Pickup at [facility] Unchanged promethazine (promethazine 25 mg rectal suppository) 1 suppository(ies) in the rectum Every 6 hours as needed for for nausea/vomiting Cannabis hyperemesis syndrome co-occurrent and due to cannabis abuse Pharmacy Information [facility]: [address] [place], [place] [phone] What How Much When Why Comments Stop [...] as coffee and soda. Take and apply limx-cud-dgpkujz and prescription medicines only as told by [...] 10/06/2017 Document Revised: 11/04/2018 Document Reviewed: 10/06/2017 [employer] Patient Education 2020 [employer] Inc[employer] Nausea, Adult Nausea is feeling sick [...] juice). ? Low-calorie sports drinks. Eat bland, xkvo-nu-sdnldv foods in small amounts as you are able, such as: ? Bananas. ? Applesauce. ? Rice. ? Low-fat (lean) meats. ? [place]. ? Crackers. Avoid drinking fluids that have a lot of sugar or caffeine in them. This includes energy drinks, sports drinks, and soda. Avoid alcohol. Avoid spicy or fatty foods. General instructions Take fhjp-yzk-bpmxwtg and prescription medicines only as told by your doctor. Rest at home while you get better. Drink enough fluid to keep your pee (urine) pale yellow. Take slow and deep breaths when you feel sick to your stomach. Avoid food or things that have strong smells. Wash your hands often with soap and water. If you cannot use soap and water, use hand yacht captain. Make sure that all people in your [...] drink what your doctor tells you. Take ptlv-esa-nplxanc and prescription medicines only as told by [...] 06/16/2012 Document Revised: 12/06/2018 Document Reviewed: 12/06/2018 [employer] Patient Education 2020 [employer] Inc[employer] Additional Information VACCINATE! IT SAVES LIVES! Members of the community who have not yet received the COVID-19 vaccine and would like to receive it can visit one of [facility] vaccine clinics. There are many vaccine clinic locations within the [facility]. For locations and available times, please visit https://gettheshot.coronavirus.[place].gov/. It is important to note that some COVID mobile vaccine clinics are held outdoors and may be canceled in rainy or stormy conditions. To learn more about pediatric vaccinations (ages 5-11), we invite you to visit the [facility] webpage. https://www.[facility].org/pages/8099-Tzolx-Xdidylpnrxy-Yahmopzwgk-Pentw-Ssd stions.htmlTo learn more about the COVID-19 vaccine, we invite you to visit the CDC website for a list of frequently asked questions.https://www.cdc.gov/coronavirus/2019-ncov/vaccines/faq.html [employer] Patient Portal Access Instructions: Stay connected with your healthcare team and access your personal medical information anytime with the [employer] Patient Portal. Please follow the directions below to create your [employer] account: 1.Access the email account you provided upon registration to the hospital/physician office.2.Look for an invitation email from [facility].3.Open the email and access the invitation link: AcceptInvitation to [employer].4.Fill in the required joy to create your account. To access your account, visit [employer]imityhart. Click the blue button labeled Access Patient [...] who you will allowto register on the [employer] Patient Portal for access to your information. You can also access the [employer] Patient Portal on the [employer] della. Simply click on Patient Portal and then log into your account. If you would like to receive a full copy of your medical records, please contact the [facility] Medical Records Department by calling [phone], Wednesday through Wednesday between 8 a.m. and [...] Call your local pharmacy or go to http://Instamedia.[employer]/8I1Jy0t to find one close to you.3.Make use of household items: Use cat litter or old coffee grounds to dispose medications if other options arenot available. Mix your drugs with these household products, seal them in an airtight container andthrow it into the garbage. Call [facility]: [phone] to be sure your drugs can be [...] Education Materials Cannabinoid Hyperemesis Syndrome Nausea, Adult, Wlul-vi-Pmlr Medication Leaflets My discharge plan and instructions have been reviewed and explained to me and IABDI HEATHER understand my current condition and have read and understand these discharge instructions. I have received a written copy of the plan/instructions. If I have questions, I am aware that I should contact my doctor. 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08-03-2023 Note ORIGINAL EXAMINATION: GASTRIC EMPTYING STUDY02/11/2023 [...] Date: 02/11/2023 3:41:00 PM Ordering Provider: MARTI L[facility]outh [facility]08-03-2023 Evaluation + Plan noteExtracted from: Title:History and Physical Author:MARTI WEBB APRN-[facility] Date:02/11/23 1. Abdominal pain 2. Hyponatremia 3. [...] and may include grammatical and/or spelling errors. [facility] 08-03-2023 Note ORIGINAL EXAMINATION: TRANSVAGINAL PELVIC [...] Sign Date: 02/11/2023 12:11:13 PM Ordering Provider: [address]03-2023 Note ORIGINAL EXAMINATION: ONE SUPINE XRAY [...] Sign Date: 02/11/2023 9:28:54 AM Ordering Provider: [address]03-2023 Note ORIGINAL EXAMINATION: COMPLETE ABDOMINAL ULTRASOUND [...] Sign Date: 02/11/2023 1:29:01 PM Ordering Provider: [facility]07-27-2023 History of Present illness Narrative* Irais Hanna [...] to limited diagnostic capabilities in [facility], I recommend she go back to the ER since she is having pain and unable to keep down fluids. She understands. She does have a PCP, but would like a new one. I had our clinic cma help with scheduling a PCP appointment for the future, but still advise she go to the ER today. [facility] Hospital Discharge instructions* Discharge Instructions* [...] your results today. Thank you for choosing [facility] for your care. Sincerely, Abdirizak Ramirez MD documented in this [facility]07-16-2023 Emergency department Note* Abdirizak Ramirez MD - 01/24/2023 10:03 AM EDT [facility] ED EMERGENCY DEPARTMENT ENCOUNTER Pt Name: [...] Culture. Procedure Abnormality Status --------- ------ Complete Urinalysis[[id number]] Abnormal Final result Please view results for [...] 129/74 Pulse: 65 71 71 70 Resp: 18 15 Temp: TempSrc: SpO2: 100% 95% [...] of DVT, no recent surgery/immobilization. Based on romanian syncope rule (see below), patient is low risk and well appearing here, plan to discharge the patient home with PMD follow up. Uzbek syncope rule: predisposition to vasovagal symptoms/consistent with [...] PM PATIENT REFERRED TO: Amy Solorzano [address] [facility] [address] Schedule an appointment as soon [...] Abdirizak Ramirez MD [facility] Emergency Medicine Physician [facility] Abdirizak Ramirez MD 01/24/23 1303 * Tamica Penaloza RN - 01/24/2023 10:03 AM EDT Patient to room 15 with c/o vomiting for 3 weeks. Patient reports being at [facility] and being told it was [facility], and there was nothing more they could do for her. Patient reports having Zofran at home that she doesn't take, because it has not relieved her symptoms. V/S obtained, call light within reach. documented in this encounterSOhio[facility] HospitalTujgbs21-74-1785 Emergency department Triage note* Tamica Penaloza RN - 01/24/2023 10:03 AM EDT Patient to room 15 with c/o vomiting for 3 weeks. Patient reports being at [facility] and being told it was [facility], and there was nothing more they could do for her. Patient reports having Zofran at home that she doesn't take, because it has not relieved her symptoms. V/S obtained, call light within reach. [facility] [id number] Physician Emergency department Note* Abdirizak Ramirez MD - 01/24/2023 10:03 AM EDT [facility] ED EMERGENCY DEPARTMENT ENCOUNTER Pt Name: [...] Culture. Procedure Abnormality Status --------- ------ Complete Urinalysis[[id number]] Abnormal Final result Please view results for [...] of DVT, no recent surgery/immobilization. Based on romanian syncope rule (see below), patient is low risk and well appearing here, plan to discharge the patient home with PMD follow up. Uzbek syncope rule: predisposition to vasovagal symptoms/consistent with [...] PM PATIENT REFERRED TO: Amy Solorzano [address] [place] [address] Schedule an appointment as soon as possible [...] Ramirez MD [facility] Emergency Medicine Physician [facility] Abdirizak Ramirez MD 01/24/23 1303 [facility] [id number] Discharge summary Author Lexus Villatoro [facility] January 15, 2023 2:12pm Note Date/Time January 15, 2023 2:11p m [facility] Medical Records Department [address] [facility] [place] [address] Instructions for Home/Discharge Instructions 01/15/23 1411 MR#: [id number] Acct: [id number] Name: GHISLAINE GIVENS Rep #:[id number] : 1990 32 From: Lexus Villatoro MD PCP: [facility] atus:ADM BOB Discharge Instructions Diet Discharge Diet: [...] Attending Provider: Lexus Villatoro [facility] Inst[facility] Patient Instructions: Cannabinoid Hyperemesis Syndrome, ED [...] [Dulcolax (bisacodyl)] 10 mg suppository 10 mg NE DAILY 3 Days Qty: 12 0RF Rx [...] Qty: 7 0RF Referrals / Follow Up: [facility] [Primary Care Provider] - Within 1 Week Disposition Disposition (needs filled in before D/C Order can be placed): Home, Self Care 01/15/231410<Electronically signed by Lexus Villatoro MD>Lexus Villatoro MD CC: [facility] ~ Signed ADDENDUM by Dr. Lexus Villatoro MD on 01/15/23 at 1412 You were noted to have a small ovarian cyst, this was seen previous on a scan ofyour abdomen as well. Please follow up with your PCP or ob/airplane cover maker for further management and monitoring 01/15/231411<Electronically signed by Lexus Villatoro MD>Lexus Villatoro MD cc: [facility] ~* Signed [facility] Work Phone: 1(211) 747-415007-07-2023 Discharge summary Author Lexus Villatoro [facility] January 15, 2023 2:23pm Note Date/Time January 15, 2023 2:12p m [facility] Medical Records Department [address] [place] [address] Discharge Summary 01/15/23 141 MR#: [id number] Acct: [id number] Name: GHISLAINE GIVENS Rep #:[id number] : 1990 32 From: Lexus Villatoro MD PCP: [facility] St atus:ADM BOB [id number] Prov[facility] Date of Admission: 01/14/23 Date of Discharge: 01/15/23 Primary Care Physician: [facility] Reason For Visit: INTRACTABLE NAUSEA VOMITING, [...] complication status: with neurologic complications 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 insulin use: without prison use Diabetes mellitus type: type 2 Plan [...] mg rectal suppository (Dulcolax (bisacodyl)) 10 mg NE DAILY 3 days #12 ea 01/15/23 scopolamine base 1 mg over 3 days transdermal patch 1 patch transdermal Q3D PRN nausea and vomiting #4 ea 01/15/23 Hospital Course Summary of Care Provided Minutes Spent on Discharge: 31 Hospital Course: GHISLAINE GIVENS, is a 32-year-old female with history of type 2 diabetes mellitus, hypertension, depression who presents to [facility] 01/14/2023 with 1 week of nausea, vomiting, [...] Please follow up with your PCP or ob/airplane cover maker for further management and monitoring -Please call [...] % (Auto) 56.4, Lymph % (Auto) 34.2, Wilcox% (Auto) 8.2, Eos % (Auto) 0.3, Baso [...] Attending Provider: Lexus Villatoro [facility] Instructions Patient Instructions: Cannabinoid Hyperemesis Syndrome, ED [...] Please follow up with your PCP or ob/airplane cover maker for further management and monitoring -Please call [...] [Dulcolax (bisacodyl)] 10 mg suppository 10 mg NE DAILY 3 Days Qty: 12 0RF Rx [...] 7 0RF [facility] - Within 1 Week Disposition Disposition (needs filled in before D/C Order can be placed): Home, Self Care Charges/Coding Visit Charges Inpatient E&M: 84298 Disch Hosp >30min 01/15/23 1423 <Electronically signed by Lexus Villatoro MD> Cosigner Signature (if applicable): CC: Dr. Lexus Villatoro MD; [facility]~ Signed [facility] Work Phone: 1(569) 311-197007-06-2023 History and physical note Author Lexus Villatoro [facility] January 14, 2023 6:10pm Note Date/Time January 14, 2023 3:59p m [facility] Medical Records Department [address] [place] [address] H&P Exam - Hospitalist 01/14/23 1552 MR#: [id number] Acct: [id number] Name: HGISLAINE GIVENS Rep #:[id number] : 1990 32 From: Lexus Villatoro MD PCP: [facility] St atus:ADM BOB Location: [place] [address] HPI - General General Date of Admission: 01/14/23 Date of Service: 01/14/23 Chief Complaint: Nausea HPI Narrative GHISLAINE GIVENS, is a 32-year-old female with history of type 2 diabetes mellitus, hypertension, depression who presents to [facility] 01/14/2023 with 1 week of nausea, vomiting, [...] urinating regularly. Denies any other specific complaints PFSH Medical History Anxiety Asthma Constipation Depression [...] % (Auto) 59.7, Lymph % (Auto) 31.2, Wilcox% (Auto) 7.7, Eos % (Auto) 0.2, Baso [...] Clarity Clear, Urine pH 8.0, Ur Specific [place] 1.015, Urine Protein 15 H, Urine Glucose [...] documentation, 58minutes Charges/Coding Visit Charges Inpatient E&M: 49561 Init Hosp L2 01/14/23 1810 <Electronically signed by Lexus Villatoro MD> Cosigner Signature (if applicable): CC: Dr. Lexus Villatoro MD; [facility]~ Signed [facility] Work Phone: 1(871) 937-513207-06-2023 Discharge summary Author Willie Dhillon [facility] January 14, 2023 3:33pm Note Date/Time January 14, 2023 12:08 pm [facility] Medical Records Department [address] [place] [address] Emergency Department Summary 01/14/23 MR#: [id number] Acct: [id number] Name: GHISLAINE GIVENS Rep #:[id number] : 1990 32 From: Willie Dhillon MD PCP: [facility] St atus:REG ER Location: ED HPI History [...] had any for a day or so. [facility] Medical History Anxiety Asthma Constipation [...] tab PO BID 2 days #4 tabs 05/11/23 [Rx Last Taken Unknown] hyoscyamine sulfate 0.125 [...] Oxygen Delivery Method Room Air Room Air [facility] Narrative Medical decision making narrative: Patient CBC [...] % (Auto) 59.7 Lymph % (Auto) 31.2 Wilcox % (Auto) 7.7 Eos % (Auto) 0.2 [...] Clarity Clear Urine pH 8.0 Ur Specific [place] 1.015 Urine Protein 15 H Urine Glucose [...] 13:57 EDT Reading Location ID and State: [facility] / [place] , Service support , Discharge Plan Dx/Rx/DC Orders Clinical Impression: Failure of outpatient treatment, Elevated serum creatinine, Intractable nausea and vomiting, Acute hypokalemia Disposition Disposition: [facility] What to do if you have Problems For any increased pain, shortness of breath, bleeding, nausea or vomiting, chestpain, or any unexpected problems, contact your Primary Care Provider. Call [facility] ([phone]) or report to the closest Emergency Room. Call 911 if necessary. 01/14/23 1533 <Electronically signed by Willie Dhillon MD> Cosigner Signature (if applicable): CC: [facility] ~ Signed [facility] Work Phone: 1(210) 643-277207-04-2023 Discharge summary Author Fabricio Guevara [facility] January 12, 2023 1:18pm Note Date/Time January 12, 2023 10:58 am [facility] Medical Records Department [address] [place] [address] Emergency Department Summary 01/12/23 MR#: [id number] Acct: [id number] Name: GHISLAINE GIVENS Rep #:[id number] : 1990 32 From: Fabricio Guevara MD PCP: [facility] St atus:REG ER Location: ED HPI HPI [...] 30 minutes before bedtime [facility] Referrals: [facility],Everson Arti [Primary Care Provider] - 3-5 Days if not improving Activity Restrictions/Additional Instructions: Zofran as needed for nausea. Follow-up with your doctor as needed. Stop using marijuana. Disposition Disposition: Home, Self Care What to do if you have Problems For any increased pain, shortness of breath, bleeding, nausea or vomiting, chestpain, or any unexpected problems, contact your Primary Care Provider. Call [facility] ([phone]) or report to the closest Emergency Room. Call 911 if necessary. 01/12/23 1318 <Electronically signed by Fabricio Guevara MD> Cosigner Signature (if applicable): CC: [facility] ~ Signed [facility] Work Phone: 1(508) 536-550307-04-2023 Note. MICRO - Microbiology PROCEDURE: Urine Culture [...] Locations *1: This test was performed at: [facility], [address] [place] [address], [address] , Counts include 234 beds at the [facility] ([place])07-02-2023 Hospital Discharge instructions Patient Education 01/10/2023 17:43:53 [...] and water are not available, use alcohol-based yacht captain to keep from spreading the infection to [...] Yellow color of the eyes or skin 5883-0749 [employer]. [address] [place] [address]. All rights reserved. This information is not [...] National Alcohol and Substance Abuse Information Center (839)-[phone] www.addictioncareAmindions.com National Nikolai on Alcoholism and Drug Dependence 861-104-3903 www.ncadd.org Marijuana Anonymous [phone] www.marijuana-anonymous.org When to seek medical advice Call your healthcare provider right away if any of these occur: You feel extreme depression, fear, anxiety, or anger toward yourself or others. You feel out of control. You feel that you may try to harm yourself or another. You experience chest pain or shortness of breath. 2897-0543 [employer]. [address] [place] [address], [place] [address]. All rights reserved. This information is not intended as a substitute for professional medical care. Always follow yourhealthcare professional's instructions. Follow Up Care 01/10/2023 13:44:57 With:Call Physician Referral Address:Unknown When:2-[address] [facility] 07-02-2023 Note Discharge Instructions Thank you [...] may report side effects to FDA at 3-436-SON-7351. What other drugs will affect promethazine? Using promethazine with other drugs that make you drowsy can worsen this effect. Ask your doctor before using opioid medication, a sleeping pill, a muscle relaxer, or medicine for anxiety or seizures. Other drugs may affect promethazine, including prescription and hwvx-jyp-bsysdhv medicines, vitamins, and herbal products. Tell your [...] to ensure that the information provided by [employer]. ('[employer]s [employer]') is accurate, up-to-date, and complete, but no guarantee is made to that effect. Drug information contained herein may be time sensitive. [employer] information has been compiled for use by healthcare practitioners and consumers in the [place] and therefore [employer] does not warrant that uses outside of the [place] are appropriate, unless specifically indicated otherwise. [employer] drug information does not endorse drugs, diagnose patients or recommend therapy. [employer] drug information isan informational resource designed to [...] effective or appropriate for any given patient. [employer] does not assume any responsibility for any aspect of healthcare administered with the aid of information [employer] provides. The information contained herein is not intended to cover all possible uses, directions, precautions, warnings, drug interactions, allergic reactions, or adverse effects. If you have questions about the drugs you are taking, check with your doctor, nurse or pharmacist. Copyright 9229-8790 [employer]. Version: 8.01. Revision Date: 08/06/2021. prochlorperazine (oral/injection) [...] What is prochlorperazine? Prochlorperazine is a phenothiazine (UHDX-hb-ZCMG-a-zeen) antipsychotic medicine that is used to treat [...] may report side effects to FDA at 4-438-SIS-2477. What other drugs will affect prochlorperazine? Using [...] may affect prochlorperazine. This includes prescription and xyzg-tlb-kvtqeyo medicines, vitamins, and herbal products. Not all [...] to ensure that the information provided by [employer]. ('[employer]') is accurate, up-to-date, and complete, but no guarantee is made to that effect. Drug information contained herein may be time sensitive. [employer] information has been compiled for use by healthcare practitioners and consumers in the [place] and therefore [employer] does not warrant that uses outside of the [place] are appropriate, unless specifically indicated otherwise. [employer] drug information does not endorse drugs, diagnose patients or recommend therapy. [employer] drug information isan informational resource designed to [...] effective or appropriate for any given patient. [employer] does not assume any responsibility for any aspect of healthcare administered with the aid of information [employer] provides. The information contained herein is not intended to cover all possible uses, directions, precautions, warnings, drug interactions, allergic reactions, or adverse effects. If you have questions about the drugs you are taking, check with your doctor, nurse or pharmacist. Copyright 2850-4707 [employer]. Version: 12.. Revision Date: 11/03/2019. Education Materials [...] and water are not available, use alcohol-based yacht captain to keep from spreading the infection to [...] Yellow color of the eyes or skin 5631-7630 [employer]. [address] [place] [address]. All rights reserved. This information is not [...] National Alcohol and Substance Abuse Information Center (498)-899-9337 www.addictioncareAmindions.com National Nikolai on Alcoholism and Drug Dependence 566-877-1051 www.ncadd.org Marijuana Anonymous 681-821-0788 www.marijuana-anonymous.org When to seek medical advice Call your healthcare provider right away if any of these occur: You feel extreme depression, fear, anxiety, or anger toward yourself or others. You feel out of control. You feel that you may try to harm yourself or another. You experience chest pain or shortness of breath. 2195-1890 [employer]. [address] [place], [place] [address]. All rights reserved. This information is not intended as a substitute for professional medical care. Always follow yourhealthcare professional's instructions. Additional Information VACCINATE! IT SAVES LIVES! Members of the community who have not yet received the COVID-19 vaccine and would like to receive it can visit one of [facility] vaccine clinics. There are many vaccine clinic locations within the [facility]. For locations and available times, please visit www.gettheshot.coronavirus.[place].gov/. It is important to note that some COVID mobile vaccine clinics are held outdoors and may be canceled in rainy or stormy conditions. To learn more about pediatric vaccinations (ages 5-11), we invite you to visit the [facility] webpage. https://www.[facility].org/pages/8455-Sbjrv-Vdouffyppei-Ieiejjkezp-Hbvoo-Eso stions.htmlTo learn more about the COVID-19 vaccine, we invite you to visit the CDC website for a list of frequently asked questions. https://www.cdc.gov/coronavirus/2019-ncov/vaccines/faq.html [employer] Patient Portal Access Instructions: Stay connected with your healthcare team and access your personal medical information anytime with the [employer] Patient Portal. If you would like a full copy of your medical records please contact the [facility] Medical Records Department Wednesday through Wednesday between 8a.m. and 4:30p.m. Please follow the directions below to access the portal: 1.Access the email account you provided upon registration to the [facility].2.Look for an invitation email from [facility].3.Open the email and access the invitation link: Accept Invitation to [employer]4.Fill in the required joy to create your account. Sign into www.[employer] with your username and password that you [...] you will allow to register on the [employer] Patient Portal for access to your information. You can also access the [employer] Patient Portal on the [employer]. Simply click on Health Records under My Digital Shield and then click on the CLEAR logo. HOW TO SAFELY DISPOSE OF PRESCRIPTION [...] Call your local pharmacy or go to http://bit.[employer]/6H5Yv1u to find one close to you.3.Make use of household items: Use cat litter or old coffee grounds to dispose medications if other options arenot available. Mix your drugs with these household products, seal them in an airtight container andthrow it into the garbage. Call [facility]: [phone] to be sure your drugs can be [...] aware that I should contact my doctor. 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 06-29-2023 Discharge summary Author Poli Barfield [facility] January 07, 2023 2:08pm Note Date/Time January 07, 2023 8:55 am [facility] Medical Records Department [address] [place] [address] Emergency Department Summary 01/07/23 MR#: [id number] Acct: [id number] Name: GHISLAINE GIVENS Rep #:[id number] : 1990 32 From: Poli Farah PCP: [facility] St atus:REG ER Location: ED HPI HPI [...] clinician: N/A This note was generated with Dragon dictation [...] % (Auto) 53.2 Lymph % (Auto) 38.5 Wilcox % (Auto) 5.9 Eos % (Auto) 1.0 [...] Days Qty: 21 0RF [facility] Cain[facility]eler [Primary Care Provider] - 3-5 Days Activity [...] your Primary Care Provider. Call [facility] ([phone]) or report to the closest Emergency Room. Call 911 if necessary. 01/07/23 1408 <Electronically signed by Poli Farah> Cosigner Signature (if applicable): CC: [facility] ~ Signed [facility] Work Phone: 1(875) 817-236705-09-2023 History of Present illness Narrative* Andres Galaviz APRN.[employer]UB SAFETY PROGRAM COORDINATOR - 11/17/2022 8:45 AM EDT Images [...] of care. This note was generated using [employer] software. It may contain errors in wording, punctuation, or spelling. Andres Galaviz APRN.SUZANNE documented [facility] Miscellaneous Notes* Telephone Encounter - [...] ER if symptoms worsen. documented in this encounterTr[facility]03-30-2023 History of Present illness Narrative* Shamika Goins PA-C - 10/08/2022 9:08 AM EDT Images from the original note were not included. This note was created using [employer]. Subjective Ghislaine Givesn is a 32 year old female. HPI [...] tolerated it fine. Recommend she call her program attendant today to be seen. Likely MRSA with [...] Z86.14 Shamika Goins PA-C documented in this [facility] Villatoro [facility] August 15, 2022 11:44am Note Date/Time August 15, 2022 1 1:38am [facility] Medical Records Department [facility] [place] [address] Instructions for Home/Discharge Instructions 08/15/22 1132 MR#: [id number] Acct: [id number] Name: GHISLAINE GIVENS Rep #:[id number] : 1990 32 From: Lexus Villatoro MD [...] be sent to your preferred pharmacy, [facility] ?Please continue all other home medications -Please [...] Urbina MD; Dr. Sophy Gibbons ~ Signed [facility] Work Phone: 1(177) 405-606202-03-[address] Villatoro [facility] August 14, 2022 8:50am Note Date/Time August 14, 2022 8 :50am [facility] Medical Records Department [address] [place] [address] Progress Note - Hospitalist 08/14/22 0846 MR#: [id number] Acct: [id number] Name: GHISLAINE GIVENS Rep #:[id number] : 1990 32 From: Lexus Villatoro MD PCP: Dr. Sophy Gibbons Status:ADM IN Location: [place] [id number] Subjective Subjective Irritable this morning, reports [...] Neut % (Auto) 65.7, Lymph % (Auto)22.3, Wilcox % (Auto) 8.6, Eos % (Auto) 0.6, [...] diabetes mellitus, hypertension, depression who presents to [facility] 08/12 with hyperglycemia andtachycardia. She was recently [...] documentation, 30Minutes Charges/Coding Visit Charges Inpatient E&M: 08476 Subs Hosp L2 08/14/22 0850 <Electronically signed by Lexus Villatoro MD> Cosigner Signature (if applicable): CC: ~ Signed [facility] Work Phone: 1(801) 306-216002-02-[address] Villatoro [facility] August 13, 2022 4:34pm Note Date/Time August 13, 2022 8 :40am [facility] Medical Records Department [address] [place] [address] [place] [address] Progress Note - Hospitalist 08/13/22 0832 MR#: [id number] Acct: [id number] Name: GHISLAINE GIVENS Rep #:[id number] : 1990 32 From: Lexus Villatoro MD PCP: Dr. Sophy Gibbons Status:ADM IN Location: [place] [address] Subjective Subjective Reports slight cough which she [...] % (Auto) 69.8, Lymph % (Auto) 20.1, Wilcox % (Auto) 8.7, Eos % (Auto) 0.1, [...] (MDRD) Non-Af 61, BUN/Creatinine Ratio 7.2 L, [id number] H, Calcium 9.6, Magnesium 1.6, Total Bilirubin 0.50, AST 20, ALT 13, Alkaline Phosphatase 136 H, Troponin I High Sens 6, Total Protein 9.2 H, Albumin2.9 L, Globulin 6.3 H, Albumin/Globulin Ratio 0.5 L 08/12/22 16:22: Acetone Level NEGATIVE 08/12/22 16:22: Urine Color Yellow, Urine Clarity Clear, Urine pH 6.0, Ur Specific [place] 1.010, Urine Protein 100 H, Urine Glucose [...] 71.0 H, Lymph % (Auto) 17.3 L, Wilcox % (Auto) 9.7, Eos % (Auto) 0.2, Baso % (Auto) 0.5, Absolute Neuts (auto) 10.6 H, Absolute Lymphs (auto) 2.59, Nucleated RBC % 0 08/13/22 05:17: Sodium 134 L, Potassium 4.1, Chloride 102, Carbon Dioxide 22.0, Anion Gap 10, BUN 7, Creatinine 0.86, Estim Creat Clear Calc 89.54, Est GFR (MDRD) Af Amer 99, Est GFR (MDRD) Non-Af 82, BUN/Creatinine Ratio 8.1 L, [id number] H, Calcium 8.6, Magnesium 2.2, Total Bilirubin [...] diabetes mellitus, hypertension, depression who presents to [facility] 08/12 with hyperglycemia andtachycardia. She was recently [...] documentation, 40Minutes Charges/Coding Visit Charges Inpatient E&M: 88647 Subs Hosp L2 08/13/22 1634 <Electronically signed by Lexus Villatoro MD> Cosigner Signature (if applicable): CC: ~ Signed [facility] Work Phone: 1(866) 949-163702-02-[address] Christiansen [facility] August 12, 2022 10:42pm Note Date/Time August 12, 2022 3 :41pm [facility] Medical Records Department [address] [place] [address] Emergency Department Summary 08/12/22 MR#: [id number] Acct: [id number] Name: GHISLAINE GIVENS Rep #:[id number] : 1990 32 From: Alex Christiansen DO PCP: Dr. Sophy Gibbons Status:ADM IN Location: [place] [address] HPI History of Present Illness Chief Complaint: Hyperglycemia Narrative Narrative: 32-year-old female presenting with hyperglycemia. She states that she was [facility] and they were unable to check her blood sugar because they could not find a glucometer because she was tachycardic [facility] that [facility] [...] which is completely healing and doing well. [facility] Medical History (Updated 08/12/22 @ [...] % (Auto) 69.8 Lymph % (Auto) 20.1 Wilcox % (Auto) 8.7 Eos % (Auto) 0.1 [...] Color Urine Clarity Urine pH Ur Specific [place] Urine Protein Urine Glucose (UA) Urine Ketones [...] (Auto) Neut % (Auto) Lymph % (Auto) Wilcox % (Auto) Eos % (Auto) Baso % [...] Clarity Clear Urine pH 6.0 Ur Specific [place] 1.010 Urine Protein 100 H Urine Glucose [...] (Auto) Neut % (Auto) Lymph % (Auto) Wilcox % (Auto) Eos % (Auto) Baso % [...] Color Urine Clarity Urine pH Ur Specific [place] Urine Protein Urine Glucose (UA) Urine Ketones [...] Discharge Plan Disposition Disposition: Acute Care Hospital [facility] Discharge Date/Time: 08/12/22 22:03 What to do if you have Problems For any increased pain, shortness of breath, bleeding, nausea or vomiting, chestpain, or any unexpected problems, contact your Primary Care Provider. Call [facility] ([phone]) or report to the closest Emergency Room. Call 911 if necessary. 08/12/222241 <Electronically signed by Alex Christiansen DO> Cosigner Signature (if applicable): CC: Dr. Sophy Gibbons ~ Signed [facility] Work Phone: 1(326) 750-806402-01-2023 History and physical note Author Dr. Urbina [facility] August 12, 2022 9:20pm Note Date/Time August 12, 2022 8 :09pm [facility] Medical Records Department [address] [place] [address] H&P Exam - Hospitalist 08/12/222008 MR#: [id number] Acct: [id number] Name: GHISLAINE GIVENS Rep #:[id number] : 1990 32 From: Valencia Urbina MD PCP: Dr. Sophy Gibbons Status:ADM IN Location: [facility] [id number] HPI - General General Date of [...] to the emergency room from [facility] for hyperglycemia and tachycardia. 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 [facility] Medical History (Updated 08/12/22 @ 21:20 [...] % (Auto) 69.8, Lymph % (Auto) 20.1, Wilcox % (Auto) 8.7, Eos % (Auto) 0.1, [...] (MDRD) Non-Af 61, BUN/Creatinine Ratio 7.2 L, [id number] H, Calcium 9.6, Magnesium 1.6, Total Bilirubin 0.50, AST 20, ALT 13, Alkaline Phosphatase 136 H, Troponin I High Sens 6, Total Protein 9.2 H, Albumin2.9 L, Globulin 6.3 H, Albumin/Globulin Ratio 0.5 L 08/12/22 16:22: Acetone Level NEGATIVE 08/12/22 16:22: Urine Color Yellow, Urine Clarity Clear, Urine pH 6.0, Ur Specific [place] 1.010, Urine Protein 100 H, Urine Glucose [...] room physician. Charges/Coding Visit Charges Inpatient E&M: 81455 Init Hosp L2 08/12/222119 <Electronically signed by Valencia Urbina MD> Cosigner Signature (if applicable): CC: Dr. Valencia Urbina MD; Dr. Sophy Gibbons~ Signed [facility] Work Phone: 1(567) 181-864409-12-2022 History of Present illness Narrative* Luis Mayes, [...] 23, 2022 1:00 PM documented in this encounterTr[facility]09-[facility] History of Present illness Narrative* [...] CORONAVIRUS Sid Bravo MD documented in this encounterTr[facility]07-25-2022 History of Present illness Narrative* Alyssa Jaime APRN.AUTO CLUB SAFETY PROGRAM COORDINATOR - 02/02/2022 9:56 AM EDT Subjective The history is provided by the patient. No cleaners was used. HPI Ghislaine Givens is a 32 year old female who presents today for CC of concerns that she was in ER[place]eday and was not treated for a pneumonia seen on CAT scan. Patient over the past month has been seen in ED for vomiting and abdominal pain. She is seeing GI at [facility], was seen on [...] Wt 92.5 kg (204 lb) LMP 05/18/2021 FzO879% BMI 32.93 kg/m Social History Tobacco Use Smoking status: Current Every Day Smoker Packs/day: 0.50 Years: 3.00 Pack years: 1.50 Types: Cigarettes Smokeless tobacco: Never Used Substance Use Topics Alcohol use: Yes Comment: Seldom Drug use: No PAST MEDICAL HISTORY Diagnosis Date Bipolar 1 disorder (HCC) 2007 Depression Elevated BP 04/28/2013 Insomnia I have confirmed and edited as necessary, the [facility] Review of Systems Constitutional: Negative [...] no guarding or rebound. Negative signs include Morrsi's sign and McBurney's sign. Neurological: Mental Status: She is alert and oriented to person, place, and time. Psychiatric: Mood and Affect: Affect normal. ASSESSMENT/PLAN: 1. Abnormal lung scan - ICD9: 794.2, ICD10: R94.2 (primary diagnosis) Scheduled follow up with PCP and pulmonology for further evaluation and treatment Patient is going to try [facility], unable to get in [place] until May. - CONSULT TO PULM/CRITICAL CARE [...] Level: 3 - Low documented in this encounterTr[facility]07-25-2022 Instructions* Patient Instructions* Alyssa Jaime APRN.CNP - 02/02/2022 9:52 AM EDT Will set up follow for primary care and pulmonology To ER for worsening symptoms, increased pain, fevers, vomiting, decreased urine output, blood in her urine blood in her stools or dark tarry stools. documented in this encounterTr[facility]11-04-2021 History of Present illness Narrative* [...] 15, 2021 9:57 AM documented in this encounterTr[facility]10-18-2013 History of Past illness Narrative* [...] of this encounter (statuses as of 02/02/2022) [facility] History of Past illness Narrative* [...] of this encounter (statuses as of 03/23/2022) [facility] History of Past illness Narrative* [...] of this encounter (statuses as of 10/08/2022) [facility] History of Past illness Narrative* [...] of this encounter (statuses as of 10/12/2022) [facility] History of Past illness Narrative* [...] of this encounter (statuses as of 11/17/2022) [facility] History of Past illness Narrative* [...] of this encounter (statuses as of 02/04/2023) [facility] History of Past illness Narrative* [...] of this encounter (statuses as of 02/24/2023) [facility] History of Past illness Narrative* [...] of this encounter (statuses as of 03/02/2023) [facility] History of Past illness Narrative* [...] of this encounter (statuses as of 03/02/2023) [facility] History of Past illness Narrative* [...] of this encounter (statuses as of 03/09/2023) [facility] History of Past illness Narrative* [...] of this encounter (statuses as of 03/10/2023) [facility] History of Past illness Narrative* [...] of this encounter (statuses as of 03/12/2023) [facility] History of Past illness Narrative* [...] of this encounter (statuses as of 03/26/2023) [facility] History of Past illness Narrative* [...] of this encounter (statuses as of 04/16/2023) [facility] History of Past illness Narrative* [...] of this encounter (statuses as of 07/02/2023) [facility] Center[facility] summary Author Rickey Gifford [facility] May 09, 2023 2:02pm Note Date/Time May 09, 2023 2 :02pm [facility] Medical Records Department [address] [place] [address] Discharge Summary 05/09/23 1354 MR#: [id number] Acct: [id number] Name: GHISLAINE GIVENS Rep #:[id number] : 1990 33 From: Rickey Gifford DO PCP: Care Physician,No Primary Status :ADM IN [place] [facility] [id number] Providers Date of Admission: 05/04/23 Primary Care Physician: No Primary Care Phys Consultations 05/04/23 19:30 Consult: Onc/Wound/system support developer Routine Comment: Reason For Visit: RIGHT FOOT [...] does have constipation. Also reviewing records through [facility]. Medications at Discharge Home Medications albuterol sulfate 90 mcg/actuation aerosol inhaler (Ventolin HFA) 1 inh inhalation Q4H SOB 04/06/22 insulin glargine 100 unit/mL (3 mL) subcutaneous pen (Lantus Solostar U-100 Insulin) 15 unit subcut BID diabetes 08/12/22 hyoscyamine sulfate 0.125 mg sublingual tablet (Levsin/SL) 0.125 mg PO TID PRN abdominal pain #10 tabs 01/07/23 bisacodyl 10 mg rectal suppository (Dulcolax (bisacodyl)) 10 mg NE DAILY 3 days #12 ea 01/15/23 acetaminophen [...] to review data from outside hospitals including [facility] as well as [facility] and [place], [place]. Patient has had CAT scans, EGDs, [...] by some anxiety. Do recommend [facility]. To be beneficial for you [...] [Dulcolax (bisacodyl)] 10 mg suppository 10 mg NE DAILY 3 Days Qty: 12 0RF Rx [...] [Primary Care Provider] - Amy Solorzano NP, TRADE SPECIALIST-C [Non-Staff -Ordering Privileges] - Within 2 Weeks Disposition Disposition (needs filled in before D/C Order can be placed): Home, Self Care Charges/Coding Visit Charges Inpatient E&M: 61845 Disch Hosp >30min 05/09/23 1402 <Electronically signed by Rickey Gifford DO> Cosigner Signature (if applicable): CC: DPPrisca Forrest; PATRICE Solorzano; Dr. Rickey Gifford DO; No Primary Care Physician~ Signed [facility] Work Phone: Discharge summary Author Gale Lr [facility] Note Date/Time November 28, 2024 12:31 pm [facility] Medical Records Department [address] [place] [address] Discharge Summary 11/28/24 1203 MR#: [id number] Acct: [id number] Name: GHISLAINE GIVENS Rep #:[id number] : 1990 34 From: Gale Lr DO PCP: BROOKLYN Warren NP-C Statu s:ADM IN Location: [place] [address] Providers Date of Admission: 11/25/24 Date of [...] who presented to the emergency department at [facility] on 11/25/2024 with a chief complaint of [...] (Auto) 49.8, Lymph % (Auto) 43.0 H, Wilcox % (Auto) 5.3, Eos % (Auto) 0.5, [...] as compared to prior study. Reading Location: [place] [address] D/C Instructions Discharge Diet: 1800 Calorie Control [...] tomorrow to set up appointment) Amy Solorzano, TRADE SPECIALIST-C [Primary Care Provider] - In 1 Week Disposition Disposition (needs filled in before D/C Order can be placed): Home, Self Care Charges/Coding Visit Charges Inpatient E&M: 04951 Disch Hosp >30min 11/28/24 1231 <Electronically signed by Gale Lr DO> Cosigner Signature (if applicable): CC: BROOKLYN Solorzano; Dr. Gale Lr, ~ Signed [facility] Work Phone: Discharge summary Author Frantz Cuolter [facility] Note Date/Time January 01, 2025 1:06 pm [facility] Medical Records Department [address] [place] [address] Instructions for Home/Discharge Instructions 01/01/25 1259 MR#: [id number] Acct: [id number] Name: GHISLAINE GIVENS Rep #:[id number] : 1990 34 From: Frantz Coulter DO PCP: BROOKLYN Warren, PATRICE Statu s:ADM IN Discharge Instructions Diet Discharge [...] SA Referrals / Follow Up: Amy Solorzano, TANVIC [Primary Care Provider] - Within 2 Weeks Disposition Disposition (needs filled in before D/C Order can be placed): Home, Self Care 01/01/25 1306<Electronically signed by Frantz Coulter DO>Frantz Coulter DO CC: JERRYC TRADE SPECIALIST-C Amy Solorzano; Dr. Dewayne Grant DO ~ Signed [facility] Work Phone: Discharge summary Author Frantz Coulter [facility] Note Date/Time January 01, 2025 1:34 pm [facility] Medical Records Department [address] [place] [address] Discharge Summary 01/01/25 1306 MR#: [id number] Acct: [id number] Name: GHISLAINE GIVENS Rep #:[id number] : 1990 34 From: Frantz Coulter DO PCP: BROOKLYN Warren, PATRICE Statu s:ADM IN Location: ICU CVICU 3-1 Providers Date of Admission: 12/31/24 Date of Discharge: 01/01/25 Primary Care Physician: BROOKLYN Warren, TANVIC Reason For Visit: DKA, CYCLICAL N/V AND [...] was seen in the emergency room at [facility] with complaints of uncontrolled nausea and vomiting [...] % (Auto) 64.4, Lymph % (Auto) 27.7, Wilcox % (Auto) 6.4, Eos % (Auto) 0.3, [...] Clarity Cloudy, Urine pH 6.0, Ur Specific [place] 1.020, Urine Protein 30 H, Urine Glucose [...] Frantz Coulter Primary Care Provider: Amy Solorzano [facility] Consulting Providers: Dewayne Grant Discharge [...] SA Referrals / Follow Up: Amy Solorzano, TRADE SPECIALIST-C [Primary Care Provider] - Within 2 Weeks Disposition Disposition (needs filled in before D/C Order can be placed): Home, Self Care Charges/Coding Visit Charges Inpatient E&M: 54045 Disch Hosp 01/01/25 7434 <Electronically signed by Frantz Coulter DO> Cosigner Signature (if applicable): CC: BROOKLYN TRADE SPECIALIST-C Amy Solorzano; Dr. Frantz Coulter, ~ Signed [facility] Work Phone: evaluation noteNo assessment information available [facility] Work Phone: evaluation note* Diagnosis Onset Date Resolution Status Abdominal pain acute [facility] Work Phone: evaluation note* Diagnosis Abnormal lung scan- Primary Nonspecific abnormal results of pulmonary system function study Nausea and vomiting, unspecified vomiting type [facility]* Diagnosis Acute cough- Primary Mild intermittent asthmatic bronchitis without complication documented in this encounter [facility] note* Diagnosis Onset Date Resolution Status Abdominal pain acute Encounter for pre-employment health screening examination acute [facility] Work Phone: evaluation note* Diagnosis Onset Date Resolution Status Abdominal pain acute Encounter for pre-employment health screening examination acute Cellulitis of foot, right ac yurok Diabetes acute Diabetic foot infection acut e Leukocytosis acute [facility] Work Phone: Evaluation note* Diagnosis Onset Date Resolution Status Abdominal pain acute Encounter for pre-employment health screening examination acute Cellulitis and abscess of right lower extremity acute Cellulitis of foot, right ac yurok Diabetes acute Diabetes mellitus with diabetic polyneuropathy acute Diabetic foot infection acut e Leukocytosis acute Osteomyelitis acute Type 2 diabetes mellitus with foot ulcer acute 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 [facility] Work Phone: Evaluation note* Diagnosis Onset Date Resolution Status Cellulitis and abscess of right lower extremity acute Cellulitis of foot, right ac yurok Diabetes acute Diabetes mellitus with diabetic polyneuropathy [...] acut e Lactic acidosis acute Osteomyelitis acute [facility] Work Phone: Evaluation note* Diagnosis Onset Date Resolution Status Cellulitis and abscess of right lower extremity acute Cellulitis of foot, right ac yurok Diabetes acute Diabetes mellitus with diabetic polyneuropathy acute Diabetic foot infection acut e Leukocytosis acute Osteomyelitis acute Type 2 diabetes mellitus with foot ulcer acute 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 Cellulitis and abscess of right lower extremity acute Cellulitis of foot, right ac yurok Diabetes mellitus with diabetic polyneuropathy acute Diabetic foot infection acut e Lactic acidosis acute Osteomyelitis acute Type 2 diabetes mellitus with foot ulcer acute [facility] Work Phone: Evaluation note* Diagnosis Onset Date Resolution Status Cellulitis and abscess of right lower extremity acute Cellulitis of foot, right ac yurok Diabetic foot infection acut e Osteomyelitis acute Lactic acidosis resolved Acute pyelonephritis acute [facility] Work Phone: Evaluation note* Diagnosis Toe infection- Primary Unspecified local infection of skin and subcutaneous tissue Facial infection Other specified infectious and parasitic diseases History of MRSA infection Personal history of Methicillin resistant Staphylococcus aureus documented in this encounter [facility] note* Diagnosis Facial infection- Primary Other specified infectious and parasitic diseases documented in this encounter [facility] note* Diagnosis Onset Date Resolution Status Acute hypokalemia acute Cannabis abuse acute Diabetes acute Elevated serum creatinine ac yurok Failure of outpatient treatment acute Intractable nausea and vomiting acute [facility] Work Phone: Evaluation note* Diagnosis Onset Date Resolution Status Acute hypokalemia acute Cannabis abuse acute Diabetes acute Intractable nausea and vomiting acute [facility] Work Phone: Evaluation note* Diagnosis Nausea and vomiting, unspecified vomiting type- Primary Syncope and collapse documented in this encounter [facility] note* Diagnosis Generalized abdominal pain- Primary Abdominal pain, generalized documented in this encounter [facility] note* Diagnosis Chronic nausea- Primary Nausea alone Chronic abdominal pain Abdominal pain, unspecified site documented in this encounter [facility] note* Diagnosis Vomiting, unspecified vomiting type, unspecified whether nausea present- Primary Chronic nausea Nausea alone documented in this encounter [facility] note* Diagnosis Chronic abdominal pain- Primary Abdominal pain, unspecified site documented in this encounter [facility] note* Diagnosis SOB (shortness of breath)- Primary Shortness of breath Abdominal pain, unspecified abdominal location documented in this encounter [facility] note* Diagnosis Onset Date Resolution Status Acute hypokalemia acute Cannabis abuse acute Diabetes acute Intractable nausea and vomiting acute Diabetes acute Diabetic foot infection acut e Leukocytosis acute [facility] Work Phone: Evaluation note* Diagnosis Onset Date [...] right foot with fat layer exposed chronic [facility] Work Phone: Evaluation note* Diagnosis Onset Date Resolution Status Diabetic foot infection reso lved Gas gangrene resolved Leukocytosis resolved Non-pressure chronic ulcer o f other part of right foot with fat layer exposed resolved Tightness of right heel cord resolved [facility] Work Phone: Evaluation note* Diagnosis Pain of right eye- Primary Pain in or around eye documented in this encounter [facility] note* Diagnosis Onset Date Resolution Status Diabetic [...] right foot with fat layer exposed resolved [facility] Work Phone: Evaluation note* Diagnosis Onset Date Resolution Status Acute painful diabetic polyneuropathy acute Other acute osteomyelitis, right ankle and foot acute Non-pressure chronic ulcer o f other part of right foot with fat layer exposed resolved [facility] Work Phone: Evaluation note* Diagnosis Nausea- Primary Nausea alone documented in this encounter [facility] note* Diagnosis Type II or unspecified type diabetes mellitus without mention of complication, uncontrolled- Primary Morbid obesity with BMI of 40.0-44.9, adult (HCC) Morbid obesity Elevated BP Elevated blood pressure reading without diagnosis of hypertension Acute cough Mild intermittent asthmatic bronchitis without complication documented in this encounter [facility] note* Diagnosis Type II or unspecified type diabetes mellitus without mention of complication, uncontrolled- Primary Morbid obesity with BMI of 40.0-44.9, adult (HCC) Morbid obesity Elevated BP Elevated blood pressure reading without diagnosis of hypertension Cough documented in this encounter [facility] note* Diagnosis Type II or unspecified type diabetes mellitus without mention of complication, uncontrolled- Primary Morbid obesity with BMI of 40.0-44.9, adult (HCC) Morbid obesity Elevated BP Elevated blood pressure reading without diagnosis of hypertension Bronchopneumonia- Primary Bronchopneumonia, organism unspecified Mild intermittent asthma, uncomplicated Unspecified asthma documented in this encounter [facility] note* Diagnosis Type II or unspecified type diabetes mellitus without mention of complication, uncontrolled- Primary Morbid obesity with BMI of 40.0-44.9, adult (HCC) Morbid obesity Elevated BP Elevated blood pressure reading without diagnosis of hypertension Acute cough- Primary Acute cough documented in this encounter [facility] note* Diagnosis Type II or unspecified type diabetes mellitus without mention of complication, uncontrolled- Primary Morbid obesity with BMI of 40.0-44.9, adult (HCC) Morbid obesity Elevated BP Elevated blood pressure reading without diagnosis of hypertension Acute cough documented in this encounter [facility] note* Diagnosis Onset Date Resolution Status Admit Date Acute proctitis acute November 25, 2024 1:38pm Colitis acute November 25, 2024 1:38pm Fecal impaction acute November 25, 2024 1:38pm [facility] Work Phone: History and physical note Author Dr. Urbina [facility] August 12, 2022 9:20pm Note Date/Time August 12, 2022 8 :09pm [facility] Medical Records Department [facility] [place] [address] H&P Exam - Hospitalist 08/12/222008 MR#: [id number] Acct: [id number] Name: GHISLAINE GIVENS Rep #:[id number] : 1990 32 From: Valencia Urbina MD PCP: Dr. Sophy Gibbons Status:ADM IN Location: [facility] [id number] HPI - General General Date of [...] referred to the emergency room from [facility] for hyperglycemia and tachycardia. 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 [facility] Medical History (Updated 08/12/22 @ 21:20 [...] % (Auto) 69.8, Lymph % (Auto) 20.1, Wilcox % (Auto) 8.7, Eos % (Auto) 0.1, [...] (MDRD) Non-Af 61, BUN/Creatinine Ratio 7.2 L, [id number] H, Calcium 9.6, Magnesium 1.6, Total Bilirubin 0.50, AST 20, ALT 13, Alkaline Phosphatase 136 H, Troponin I High Sens 6, Total Protein 9.2 H, Albumin2.9 L, Globulin 6.3 H, Albumin/Globulin Ratio 0.5 L 08/12/22 16:22: Acetone Level NEGATIVE 08/12/22 16:22: Urine Color Yellow, Urine Clarity Clear, Urine pH 6.0, Ur Specific [place] 1.010, Urine Protein 100 H, Urine Glucose [...] room physician. Charges/Coding Visit Charges Inpatient E&M: 16152 Init Hosp L2 08/12/222119 <Electronically signed by Valencia Urbina MD> Cosigner Signature (if applicable): CC: Dr. Valencia Urbina MD; Dr. Sophy Gibbons~ Signed [facility] Work Phone: History and physical note Author David Bain [facility] Note Date/Time December 30, 2024 1:09 pm [facility] Medical Records Department [address] [place] [address] H&P Exam - Hospitalist 12/30/24 1248 MR#: [id number] Acct: [id number] Name: GHISLAINE GIVENS Rep #:[id number] : 1990 34 From: David Gupta PCP: BROOKLYN Warren, TRADE SPECIALIST-C Statu s:ADM IN Location: ICU CVICU20 3-1 [...] DKA therefore admitted. Vitals in normal limit. [facility] Medical History Diabetes GERD (gastroesophageal reflux [...] (Auto) 70.7 H, Lymph % (Auto) 23.6, Wilcox % (Auto) 4.8, Eos % (Auto) 0.0, [...] Sl. Cloudy, Urine pH 5.0, Ur Specific [place] 1.025, Urine Protein 30 H, Urine Glucose [...] for 2 weeks. Weight loss counseling done. Scorekeeper consult DVT prophylaxis, low risk: Early ambulation encouraged Living will/advanced directive/end of life care: Patient does not have living will or advanced directive. She does not have [facility] power of sales department manager for health. After discussion of benefits/risks procedures involved with full code,DNR CC arrest and DNR CC, the patient opted for full code. Patient does want artificial life support including intubation, tube feed, ventilator and/chest compression, central venous catheter, vasopressor and DC shock if needed Total time spent in [id number] encounter in discussion of advanced directive 17 minutes. Charges/Coding Visit Charges Inpatient E&M: 68439 Init Hosp L3 Procedures Hospitalists Procedures: 52349 Advncd Care Plan 30 Min 12/30/24 1309 <Electronically signed by David Bain MD> Cosigner Signature (if applicable): CC: C TRADE SPECIALIST-Sara Solorzano; Dr. David Bain MD~ Signed [facility] Work Phone: Hospital course Narrative No data available for this section [facility] Hospital Discharge instructions Additional Instructions Avoid marijuana use. Use the capsaicin cream every 6 hours as needed. Medication prescribed to use as needed. Continue oral fluids at home for hydration. Follow-up with your doctor.[facility] Work Phone: Hospital Discharge instructions Additional Instructions Please decrease your marijuana use. Please maintain hydration, use antinausea medicine as needed.[facility] Work Phone: Hospital Discharge instructions Additional Instructions Please fill the prescriptions that were prescribed to you from [facility] to help control your nausea and vomiting. Based on their CAT scan showing potential gallbladder or fallopian tube issues please have the ultrasounds obtained that were ordered on an outpatient basis this evening. If you have any further concerns return to the ER for repeat evaluationWSt[facility] Work Phone: Hospital Discharge instructions Additional Instructions Your CT scan showed inflammation of the rectum consistent with acute proctitis. This can be secondary to infection or just inflammation but because of your diabetes and elevation of your white count take the antibiotic to resolve an infectious cause. If you have any further concerns please return for repeat evaluationWSt. Mary's [facility] Work Phone: Hospital Discharge instructions Additional Instructions I would recommend gentle massage of the tear duct. Warm compresses as discussed. I would highly encourage ophthalmologic follow-up. Monitor for worsening symptoms return if needed.[facility] Work Phone: Hospital Discharge instructions Additional Instructions [...] letting me be involved in your surgical care![facility] Work Phone: Hospital Discharge instructions Additional Instructions Continue to avoid marijuana use. Use medications as prescribed for your symptoms. Continue oral fluids for hydration. Follow-up with your GI team.[facility] Work Phone: Reason for referral (narrative)* Diagnostic Procedure Only (Routine) - New Request Specialty Diagnoses / Procedures Referred By Ubaldo whitaker Referred To Contact MOLECULAR & FUNCTIONAL IMAGING Diagnoses Nausea Procedures NM GASTRIC EMPTYING SOLID GASTRIC EMPTYING STUDY Almita Kelly PA-C [address] [place] [address] Molecular & Functional Imaging [address] [place] [address] Referral ID Status Reason Start Date Expiration Date Visits Requested Visits Authorized [id number] New Request Auto-Generat ed Referral 03/02/2023 03/31/2024 1 1 [facility] ([facility]arrative)No reason for referral information availableWSt. Mary's Medical Center Work Phone: Chief Complaint and [...] INFECTION DIABETIC FOOT INFECTION DIABETIC FOOT INFECTION USP LABWORK Reason for Visit Abdominal pain Encounter [...] INFECTION DIABETIC FOOT INFECTION DIABETIC FOOT INFECTION USP LABWORK USP LAB WORK Reason for Visit Abdominal pain [...] INFECTION DIABETIC FOOT INFECTION DIABETIC FOOT INFECTION USP LABWORK USP LAB WORK USP LABWORK CMP/CBC Reason for Visit Abdominal pain [...] INFECTION DIABETIC FOOT INFECTION DIABETIC FOOT INFECTION USP LABWORK USP LAB WORK USP LABWORK CMP/CBC DIABETIC FOOT ULCER Reason for [...] INFECTION DIABETIC FOOT INFECTION DIABETIC FOOT INFECTION USP LABWORK USP LAB WORK USP LABWORK CMP/CBC DIABETIC FOOT ULCER Reason for [...] INFECTION DIABETIC FOOT INFECTION DIABETIC FOOT INFECTION USP LABWORK USP LAB WORK USP LABWORK CMP/CBC DIABETIC FOOT ULCER DIAULCER DIAULCER [...] diabetes mellitus with foot ulcer Chief Complaint USP LABWORK CMP/CBC DIABETIC FOOT ULCER DIAULCER DIAULCER DIAULCER DIAULCER DIAULCER ACUTE PYELONEPHRITIS ACUTE PYELONEPHRITIS Reason for Visit Cellulitis and absce ss of right lower extremity Cellulitis of foot, right Diabetic foot infection Osteomyelitis Lactic acidosis Acute pyelonephritis Chief Complaint USP LABWORK CMP/CBC DIABETIC FOOT ULCER DIAULCER DIAULCER [...] Complaint Admit Date PVD, BILAT LEG PAIN * PROTOCOL* October 25, 2024 7:34am Chief Complaint Admit Date PVD, BILAT LEG PAIN * PROTOCOL* October 25, 2024 7:34am STERCORAL PROCTOCOLITIS [...] Complaint Admit Date PVD, BILAT LEG PAIN * PROTOCOL* October 25, 2024 7:34am PAIN IN [...] Complaint Admit Date PVD, BILAT LEG PAIN * PROTOCOL* October 25, 2024 7:34am PAIN IN [...] kidney injury) December 30 12:28pm Diabetic ketoacidosis Rhona 21st, 2025 12 :28pm Cannabis abuse December 31, 2024 [...] 24, 2021 8:30am Power of Director Of Pharmacy No October 24 8:30am Advance Directive Response Recorded Date/ Time Living Will No October 29, 2021 9:39am Power of Director Of Pharmacy No October 29 9:39am Advance Directive Response Recorded Date/ Time Living Will No November 16, 2021 8: 50am Power of Director Of Pharmacy No November 16, 2021 8:50am Advance Directive Response Recorded Date/ Time Living Will No January 16, 2022 2 :46pm Power of Director Of Pharmacy No January 16, 2022 2:46pm Advance Directive Response Recorded Date/ Time Living Will No January 22, 2022 9:41pm Power of Director Of Pharmacy No January 22 9:41pm Advance Directive Response Recorded Date/ Time Living Will No January 23, 2022 4:29pm Power of Director Of Pharmacy No January 23 4:29pm Advance Directive Response Recorded Date/ Time Living Will No January 26, 2022 12:34pm Power of Director Of Pharmacy No January 26 12:34pm Advance Directive Response Recorded Date/ Time Living Will No February 01, 2022 1:07pm Power of Director Of Pharmacy No February 01 1:07pm Advance Directive Response Recorded Date/ Time Living Will No April 05, 2022 11:53am Power of Director Of Pharmacy No March 11:53am Advance Directive Response Recorded Date/ Time Living Will No April 06, 2022 12:58pm Power of Director Of Pharmacy No March 12:58pm Advance Directive Response Recorded Date/ Time Living Will No April 06, 2022 4:07pm Power of Director Of Pharmacy No March 4:07pm Advance Directive Response Recorded Date/ Time Living Will No June 24, 2 022 3:40pm Power of Director Of Pharmacy No June 24, 2022 3:40pm Advance Directive Response Recorded Date/ Time Living Will No August 12 5:35pm Power of Director Of Pharmacy No August 12, 2022 5:35pm Advance Directive Response Recorded Date/ Time Living Will No August 12 10:55pm Power of Director Of Pharmacy No August 12, 2022 10:55pm Advance Directive Response Recorded Date/ Time Living Will No January 07, 2023 8:51am Power of Director Of Pharmacy No January 07 8:51am Advance Directive Response Recorded Date/ Time Living Will No January 09, 2023 1 2:00pm Power of Director Of Pharmacy No January 09, 2023 12:00pm Advance Directive Response Recorded Date/ Time Living Will No January 12, 2023 1 2:39am Power of Director Of Pharmacy No January 12, 2023 12:39am Advance Directive Response Recorded Date/ Time Living Will No January 12, 2023 1 2:53pm Power of Director Of Pharmacy No January 12, 2023 12:53pm Advance Directive Response Recorded Date/ Time Living Will No January 14, 2023 4 :21pm Power of Director Of Pharmacy No January 14, 2023 4:21pm Advance Directive Response Recorded Date/ Time Living Will No January 25, 2023 11:41am Power of Director Of Pharmacy No January 25 11:41am Advance Directive Response Recorded Date/ Time Living Will No February 08, 2023 12:35pm Power of Director Of Pharmacy No February 08 12:35pm Latest Code Status on File Code Status Date Activated Date Inactivated Comments Full Code 02/18/2023 1:58 AM 02/20/2023 4:13 PM Question Answer Comments Full Code Order Discussed With: Patient Advance Directive Response Recorded Date/ Time Living Will No February 26 12:10am Power of Director Of Pharmacy No February 26, 2 023 12:10am Latest [...] March 06 8:38am Power of Director Of Pharmacy No March 06, 2 023 8:38am Latest [...] May 04 12:14pm Power of Director Of Pharmacy No May 04, 2023 12:14pm Advance Directive Response Recorded Date/ Time Living Will No May 04 6:42pm Power of Director Of Pharmacy No May 04, 2023 6:42pm Advance Directive Response Recorded Date/ Time Living Will No May 04 5:42pm Power of Director Of Pharmacy No May 04, 2023 5:42pm Advance Directive Response Recorded Date/ Time Living Will No June 28, 2 023 9:27am Power of Director Of Pharmacy No June 28, 2023 9:27am Advance Directive Response Recorded Date/ Time Living Will No July 02, 2 023 9:33am Power of Director Of Pharmacy No July 02, 2023 9:33am Advance Directive Response Recorded Date/ Time Living Will No July 16 4 9:15am Power of Director Of Pharmacy No July 16, 2 024 9:15am Advance Directive Response Recorded Date/ Time Living Will No July 16 4 10:15am Power of Director Of Pharmacy No July 16, 2 024 10:15am Date [...] June 25, 2 023 9:33am Power of Director Of Pharmacy No June 25, 2023 9:33am Advance Directive Response Recorded Date/ Time Living Will No June 26 023 12:21pm Power of Director Of Pharmacy No June 26, 2023 12:21pm Advance Directive Response Recorded Date/ Time Living Will No June 27 023 5:53am Power of Director Of Pharmacy No June 27, 2023 5:53am Advance Directive Response Recorded Date/ Time Do you have a Healthcare Power of Director Of Pharmacy? No November 25, 2024 8:56am Advance Directive Response Recorded Date/ Time Do you have a Healthcare Power of Director Of Pharmacy? No November 25, 2024 2:54pm Advance Directive Response Recorded Date/ Time Do you have a Healthcare Power of Director Of Pharmacy? No November 25, 2024 2:54pm Do you have a Healthcare Power of Director Of Pharmacy? No December 30, 2024 10:23am Advance Directive Response Recorded Date/ Time Do you have a Healthcare Power of Director Of Pharmacy? No November 25, 2024 2:54pm Do you have a Healthcare Power of Director Of Pharmacy? No December 30, 2024 1:37pm Advance Directive Response Recorded Date/ Time Do you have a Healthcare Power of Director Of Pharmacy? No November 25, 2024 2:54pm Do you have a Healthcare Power of Director Of Pharmacy? No December 30, 2024 1:37pm Do you have a Healthcare Power of Director Of Pharmacy? No December 31, 2024 7:36pm Advance Directive Response Recorded Date/ Time Do you have a Healthcare Power of Director Of Pharmacy? No November 25, 2024 2:54pm Do you have a Healthcare Power of Director Of Pharmacy? No December 30, 2024 1:37pm Do you have a Healthcare Power of Director Of Pharmacy? No December 31, 2024 11:46pm Advance Directive Response Recorded Date/ Time Do you have a Healthcare Power of Director Of Pharmacy? No November 25, 2024 2:54pm Do you have a Healthcare Power of Director Of Pharmacy? No December 30, 2024 1:37pm Do you have a Healthcare Power of Director Of Pharmacy? No December 31, 2024 11:46pm Do you have a Healthcare Power of Director Of Pharmacy? No January 02, 2025 6:59am Advance Directive Response Recorded Date/ Time Do you have a Healthcare Power of Director Of Pharmacy? No November 25, 2024 2:54pm Do you have a Healthcare Power of Director Of Pharmacy? No December 30, 2024 1:37pm Do you have a Healthcare Power of Director Of Pharmacy? No December 31, 2024 11:46pm Do you have a Healthcare Power of Director Of Pharmacy? No January 04, 2025 5:55am Do you have a Healthcare Power of Director Of Pharmacy? No January 02, 2025 6:59am Family History [...] scan Procedures CONSULT TO PULM/CRITICAL CARE OFFICE/OUTPATIENT [facility] 60-74 MINUTES Alyssa Jaime APRN.AUTO CLUB SAFETY PROGRAM COORDINATOR [address] [place] [address] Referral ID Status Reason Start Date Expiration Date Visits Requested Visits Authorized [id number] Authorized PCP Requested Referral 02/02/2022 02/02/2023 1 1 Specialty Diagnoses / Procedures Referred By Contac t Referred To Contact Pain Management Diagnoses Chronic abdominal pain Procedures CONSULT TO PAIN MGT OFFICE/OUTPATIENT [facility] 60-74 MINUTES Pilar Magdaleno APRN.AUTO CLUB SAFETY PROGRAM COORDINATOR [address] [place] [address] Referral ID Status Reason Start Date Expiration Date Visits Requested Visits Authorized [id number] Authorized PCP Requested Referral 02/23/2023 02/23/2024 1 1 Specialty Diagnoses / Procedures Referred By Contac t Referred To Contact Gastroenterology Diagnoses Chronic nausea Procedures CONSULT TO GASTROENTEROLOGY OFFICE/OUTPATIENT [facility] 60-74 MINUTES Pilar Magdaleno APRN.AUTO CLUB SAFETY PROGRAM COORDINATOR [address] [place] [address] Referral ID Status Reason Start Date Expiration Date Visits Requested Visits Authorized [id number] Authorized PCP Requested Referral 02/23/2023 02/23/2024 1 1 Referral ID Status Reason Start Date Expiration Date Visits Requested Visits Authorized [id number] Authorized PCP Requested Referral 03/12/2023 03/11/2024 1 [...] or prosecute any alcohol or drug abuse patient.[facility] CenterIn the event this information is protected by the Federal Confidentiality of Alcohol and Drug Abuse Patient Records regulations: The Federal rules restrict any use of the information to criminally investigate or prosecute any alcohol or drug abuse patient.[facility] CenterIn the event this information is protected by the Federal Confidentiality of Alcohol and Drug Abuse Patient Records regulations: The Federal rules restrict any use of the information to criminally investigate or prosecute any alcohol or drug abuse patient.[facility] CenterIn the event this information is protected by the Federal Confidentiality of Alcohol and Drug Abuse Patient Records regulations: The Federal rules restrict any use of the information to criminally investigate or prosecute any alcohol or drug abuse patient.[facility] CenterIn the event this information is protected by the Federal Confidentiality of Alcohol and Drug Abuse Patient Records regulations: The Federal rules restrict any use of the information to criminally investigate or prosecute any alcohol or drug abuse patient.[facility] CenterIn the event this information is protected by the Federal Confidentiality of Alcohol and Drug Abuse Patient Records regulations: The Federal rules restrict any use of the information to criminally investigate or prosecute any alcohol or drug abuse patient.[facility] CenterIn the event this information is protected by the Federal Confidentiality of Alcohol and Drug Abuse Patient Records regulations: The Federal rules restrict any use of the information to criminally investigate or prosecute any alcohol or drug abuse patient.[facility] CenterIn the event this information is protected by the Federal Confidentiality of Alcohol and Drug Abuse Patient Records regulations: The Federal rules restrict any use of the information to criminally investigate or prosecute any alcohol or drug abuse patient.[facility] CenterIn the event this information is protected by the Federal Confidentiality of Alcohol and Drug Abuse Patient Records regulations: The Federal rules restrict any use of the information to criminally investigate or prosecute any alcohol or drug abuse patient.[facility] CenterIn the event this information is protected by the Federal Confidentiality of Alcohol and Drug Abuse Patient Records regulations: The Federal rules restrict any use of the information to criminally investigate or prosecute any alcohol or drug abuse patient.[facility] CenterIn the event this information is protected by the Federal Confidentiality of Alcohol and Drug Abuse Patient Records regulations: The Federal rules restrict any use of the information to criminally investigate or prosecute any alcohol or drug abuse patient.[facility] CenterIn the event this information is protected by the Federal Confidentiality of Alcohol and Drug Abuse Patient Records regulations: The Federal rules restrict any use of the information to criminally investigate or prosecute any alcohol or drug abuse patient.[facility] CenterIn the event this information is protected by the Federal Confidentiality of Alcohol and Drug Abuse Patient Records regulations: The Federal rules restrict any use of the information to criminally investigate or prosecute any alcohol or drug abuse patient.[facility] CenterIn the event this information is protected by the Federal Confidentiality of Alcohol and Drug Abuse Patient Records regulations: The Federal rules restrict any use of the information to criminally investigate or prosecute any alcohol or drug abuse patient.[facility] CenterIn the event this information is protected by the Federal Confidentiality of Alcohol and Drug Abuse Patient Records regulations: The Federal rules restrict any use of the information to criminally investigate or prosecute any alcohol or drug abuse patient.[facility] CenterIn the event this information is protected by the Federal Confidentiality of Alcohol and Drug Abuse Patient Records regulations: The Federal rules restrict any use of the information to criminally investigate or prosecute any alcohol or drug abuse patient.[facility] CenterIn the event this information is protected by the Federal Confidentiality of Alcohol and Drug Abuse Patient Records regulations: The Federal rules restrict any use of the information to criminally investigate or prosecute any alcohol or drug abuse patient.[facility] CenterIn the event this information is protected by the Federal Confidentiality of Alcohol and Drug Abuse Patient Records regulations: The Federal rules restrict any use of the information to criminally investigate or prosecute any alcohol or drug abuse patient.[facility] CenterIn the event this information is protected by the Federal Confidentiality of Alcohol and Drug Abuse Patient Records regulations: The Federal rules restrict any use of the information to criminally investigate or prosecute any alcohol or drug abuse patient.[facility] CenterIn the event this information is protected by the Federal Confidentiality of Alcohol and Drug Abuse Patient Records regulations: The Federal rules restrict any use of the information to criminally investigate or prosecute any alcohol or drug abuse patient.[facility] CenterIn the event this information is protected by the Federal Confidentiality of Alcohol and Drug Abuse Patient Records regulations: The Federal rules restrict any use of the information to criminally investigate or prosecute any alcohol or drug abuse patient.[facility] Reason for Visit (unrecogniz ed [...] OFFICE/OUTPATIENT NEW HIGH MDM 60-74 MINUTES Pilar Magdaleno, BURIAL VAULT SETTER.AUT[employer]UB 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 Lexus Villatoro MD Attending Provider Active Computer Consultant Relationship Specialty Start Date End Date Amy Solorzano NP [address] [place], [place] [id number] PCP - General Family Medicine 11/17/22 Team Status: Active Member Role Status Dates Dr. Esther Cooney MD Family Provider Active [facility] Primary Care Provider A ctive Team Status: Inactive Member Role Status Dates Dr. Sophy Gibbons Primary Care Provider Active Dr. Tim Vidal DO Attending Provider, Emergency P tala Active Team Status: Active Member Role Status Dates [facility] Primary Care Provider A ctive Amy Solorzano TRADE SPECIALIST, TRADE SPECIALIST-C Attending Provider, Referrin g Provider Active Team Status: Inactive Member Role Status Dates [facility] Primary Care Provider A ctive Dr. Poli Barfield DO Emergency Provider Active Team Status: Inactive Member Role Status Dates [facility] Primary Care Provider A ctive Dr. Deann Guerrero MD Emergency Provider Active Team Status: Inactive Member Role Status Dates [facility] Primary Care Provider A ctive Dr. Perico Norman DO Emergency Provider Active Team Status: Inactive Member Role Status Dates [facility] Primary Care Provider A ctive Dr. Fabricio Guevara MD Emergency Provider Active Team Status: Active Member Role Status Dates [facility] Primary Care Provider A ctive Dr. Willie Dhillon MD Emergency Provider Active Dr. Lexus Villatoro MD Admit Provider, At tending Provider, Other Provider Active Team Status: Inactive Member Role Status Dates [facility] Primary Care Provider A ctive Dr. Willie Dhillon MD Emergency Provider Active Dr. Lexus Villatoro MD Admit Provider, Attending Provid er Active Team Status: Inactive Member Role Status Dates [facility] Primary Care Provider A ctive Dr. Poli Barfield DO Attending Provider, Emergency Provide r Active Team Status: Inactive Member Role Status [facility] Primary Care Provider A ctive Dr. Deann Guerrero MD Attending Provider, Emergency Provider Active Team Status: Inactive Member Role Status [facility] Primary Care Provider A ctive Amy Solorzano TRADE SPECIALIST, TRADE SPECIALIST-C Attending Provider, Referrin g Provider Active Team Status: Inactive Member Role Status [facility] Primary Care Provider A ctive Dr. Perico Norman DO Attending Provider, Emergency Pr ovider Active Team Status: Inactive Member Role Status [facility] Primary Care Provider A ctive Dr. Fabricio Guevara MD Attending Provider, Emergency Pro vider Active Computer Consultant Relationship Specialty Start Date End Date Amy Solorzano [address] [place] [phone] PCP - General 01/24/23 Computer Consultant Relationship Specialty Start Date End Date Amy Solorzano NP [address] [place], [place] [address] PCP - General Family Medicine 11/17/22 Team Status: Inactive Member Role Status Dates [facility] Primary Care Provider A ctive Dr. Javy Doss , DO Emergency Provider Active Computer Consultant Relationship Specialty Start Date End Date Amy Solorzano, TRADE SPECIALIST [address] [place] [address] PCP - General Family Medicine 11/17/22 Team Status: Inactive Member Role Status Dates [facility] Primary Care Provider A ctive Dr. Javy Doss , DO Attending Provider, Emergency Pro vider Active Team Status: Inactive Member Role Status Dates [facility] Primary Care Provider A ctive Dr. Tim Vidal , DO Emergency Provider Active Computer Consultant Relationship Specialty Start Date End Date Amy Solorzano, TRADE SPECIALIST [address] [place] [address] PCP - General Family Medicine 11/17/22 Computer Consultant Relationship Specialty Start Date End Date Amy Solorzano, TRADE SPECIALIST [address] [place] [address] PCP - General Family Medicine 11/17/22 Team Status: Inactive Member Role Status Dates [facility] Primary Care Provider A ctive Dr. Tim Vidal , DO Attending Provider, Emergency P rovider Active Team Status: Inactive Member Role Status Dates [facility] Primary Care Provider A ctive Dr. Rickey Shepard , DO Emergency Provider Active Computer Consultant Relationship Specialty Start Date End Date Amy Solorzano, TRADE SPECIALIST [address] [place] [address] PCP - General Family Medicine 11/17/22 Computer Consultant Relationship Specialty Start Date End Date Amy Solorzano, TRADE SPECIALIST [address] [place] [address] PCP - General Family Medicine 11/17/22 Computer Consultant Relationship Specialty Start Date End Date Amy SolorzanoMARIA G [address] [facility] [place] [address] PCP - General Family Medicine 11/17/22 Computer Consultant Relationship Specialty Start Date End Date Amy SolorzanoMARIA G [address] [facility] [place] [address] PCP - General Family Medicine 11/17/22 Team [...] Active Team Status: Inactive Member Role Status [facility] Primary Care Provider A ctive Dr. Rickey Shepard , Attending Provider, Emergency P tala Active Team Status: Inactive Member Role Status Dates Dr. Poli Barfield , Attending Provider, Emergency Provide r Active No [...] Dr. Alex Christiansen DO Emergency Provider Active Computer Consultant Relationship Specialty Start Date End Date Amy Solorzano NP [address] [place] [phone] PCP - General Family Medicine 11/17/22 Team [...] Dr. Tesfaye Mitchell DO Emergency Provider Active [facility] Primary Care Provider A ctive Team Status: Inactive Member Role Status Dates Dr. Abdirizak Forrest DPM Attending Provider, Referring Provider Active [facility] Primary Care Provider A ctive Team Status: Inactive Member Role Status Dates Dr. Sophy Gibbons Primary Care Provider Active Drew Hinson MD Attending Provider, Emergency Provid er Active Team Status: Inactive Member Role Status Dates Dr. Tesfaye Mitchell DO Attending Provider, Emergency P rovider Active [facility] Primary Care Provider A ctive Team Status: Inactive Member Role Status Dates [facility] Primary Care Provider A ctive Dr. Willie Dhillon MD Attending Provider, Emergency Provider Active Team Status: Inactive Member Role Status Dates [facility] Primary Care Provider A ctive Dr. Abdirizak Forrest DPM Attending Provider, Referring Provider Active Computer Consultant Relationship Specialty Start Date End Date Amy Solorzano NP [address] [place] [phone] PCP - General Family Medicine 11/17/22 Computer Consultant Relationship Specialty Start Date End Date Amy Solorzano NP [address] [place] [phone] PCP - General Family Medicine 11/17/22 Computer Consultant Relationship Specialty Start Date End Date Amy Solorzano NP [address] [place] [phone] PCP - General Family Medicine 11/17/22 Computer Consultant Relationship Specialty Start Date End Date Amy Solorazno NP [address] [place] [phone] PCP - General Family Medicine 11/17/22 Team Status: Active Member Role Status Dates Amy BARAHONA, TRADE SPECIALIST-C Primary Care Provider Activ e Team Status: Inactive Member Role Status Dates Amy Solorzano VSC, TRADE SPECIALIST-C Primary Care Provider Activ e Start: October 17, 2024 End: October 17, 2024 Amy BARAHONA, TRADE SPECIALIST-C Attending Provider Active Start: October 17, 2024 End: October 17, 2024 Team Status: Inactive Member Role Status Dates Amy BARAHONA, TRADE SPECIALIST-C Primary Care Provider Activ e Start: October 25, 2024 End: October 25, 2024 Dr. Abdirizak Forrest DPM Attending Provider Active Start: October 25, 2024 End: October 25, 2024 Dr. Abdirizak Forrest DPM Referring Provider Active Start: October 25, 2024 End: October 25, 2024 Team Status: Active Member Role Status Dates Amy BARAHONA, TRADE SPECIALIST-C Primary Care Provider Activ e Start: November 25, 2024 Drew Hinson MD Emergency Provider Active Star t: November 25, 2024 Dr. Brenda Rao MD Admit Provider Active St art: November 25, 2024 Dr. Brenda Rao MD Attending Provider Active Start: November 25, 2024 Team Status: Inactive Member Role Status Dates Amy BARAHONA, TRADE SPECIALIST-C Primary Care Provider Activ e Start: November [...] Active Member Role Status Dates Amy BARAHONA, TRADE SPECIALIST-C Primary Care Provider Activ e Start: November [...] Active Member Role Status Dates Amy BARAHONA, TRADE SPECIALIST-C Primary Care Provider Activ e Start: November [...] Active Member Role Status Dates Amy BARAHONA, TRADE SPECIALIST-C Primary Care Provider Activ e Start: November [...] Active Member Role Status Dates Amy BARAHONA, TRADE SPECIALIST-C Primary Care Provider Activ e Start: November [...] Active Member Role Status Dates Amy BARAHONA, TRADE SPECIALIST-C Primary Care Provider Activ e Start: November [...] Start : November 27, 2024 Clare GRADY PAPanC Attending Provider Active Start: November 27, 2024 Team Status: Active Member Role Status Dates Amy BARAHONA, TRADE SPECIALIST-C Primary Care Provider Activ e Start: November [...] Active Member Role Status Dates Amy BARAHONA, TRADE SPECIALIST-C Primary Care Provider Activ e Start: November [...] Active Member Role Status Dates Amy BARAHONA, TRADE SPECIALIST-C Primary Care Provider Activ e Start: November [...] S tart: November 25, 2024 Dr. Gale rL DO Referring Provider Active S tart: November 25, 2024 Team Status: Inactive Member Role Status Dates Amy EDWARDSC, TRADE SPECIALIST-C Primary Care Provider Activ e Start: December 13, 2024 End: December 13, 2024 Amy EDWARDSC, TRADE SPECIALIST-C Referring Provider Active Start: December 13, 2024 End: December 13, 2024 MIGUEL A South Attending Provider Active Start: December 13, 2024 End: December 13, 2024 Team Status: Inactive Member Role Status Dates Amy EDWARDSC, TRADE SPECIALIST-C Primary Care Provider Activ e Start: December 13, 2024 End: December 13, 2024 MIGUEL A South Attending Provider Active Start: December 13, 2024 End: December 13, 2024 MIGUEL A South Referring Provider Active Start: December 13, 2024 End: December 13, 2024 Team Status: Inactive Member Role Status Dates Amy EDWARDSC, TRADE SPECIALIST-C Primary Care Provider Activ e Start: December 25, 2024 End: December 25, 2024 MIGUEL A South Attending Provider Active Start: December 25, 2024 End: December 25, 2024 Kalee Peter Referring Provider Active Start: December 25, 2024 End: December 25, 2024 Team Status: Active Member Role Status Dates Amy EDWARDSC, TRADE SPECIALIST-C Primary Care Provider Activ e Start: December 30, 2024 Dr. Poli Barfield DO Emergency Provider Active Start : December 30, 2024 Dr. David Bain MD Admit Provider Active Sta rt: December 30, 2024 Dr. David Bain MD Attending Provider Active Start: December 30, 2024 Team Status: Inactive Member Role Status Dates Amy EDWARDSC, TRADE SPECIALIST-C Primary Care Provider Activ e Start: December [...] Active Member Role Status Dates Amy EDWARDSC, TRADE SPECIALIST-C Primary Care Provider Activ e Start: December 30, 2024 Dr. Poli Le , DO Emergency Provider Active Start : December 30, 2024 Dr. David Bain MD Admit Provider Active Sta rt: December 30, 2024 Dr. David Bain MD Attending Provider Active Start: December 30, 2024 Dr. David Bain MD Other Provider Active Sta rt: December 30, 2024 Team Status: Active Member Role Status Dates Amy Rashad EDWARDSC, TRADE SPECIALIST-C Primary Care Provider Activ e Start: December [...] Member Role Status Dates Amy Rashad EDWARDSC, TRADE SPECIALIST-C Primary Care Provider Activ e Start: December 31, 2024 Dr. Poli Barfield , DO Emergency Provider Active Start : December 31, 2024 Dr. Dewayne Grant , DO Admit Provider Active Start: December 31, 2024 Dr. Dewayne Grant , DO Attending Provider Active Start: December 31, 2024 Team Status: Inactive Member Role Status Dates Amy Rashad EDWARDSC, TRADE SPECIALIST-C Primary Care Provider Activ e Start: December [...] January 01, 2025 Dr. Frantz Coulter , DO Attending Provider Active Start: December 31, 2024 End: January 01, 2025 Team Status: Active Member Role Status Dates Amy Rashad BARAHONA, TRADE SPECIALIST-C Primary Care Provider Activ e Start: January 01, 2025 Dr. Poli Barfield , DO Emergency Provider Active Start : January 01, 2025 Dr. Dewayne Grant , DO Admit Provider Active Start: January 01, 2025 Dr. Dewayne Grant , DO Other Provider Active Start: January 01, 2025 Dr. Frantz Coulter , DO Attending Provider Active Start: January 01, 2025 Dr. Frantz Coulter , DO Other Provider Active S tart: January 01, 2025 Team Status: Inactive Member Role Status Dates Amy Rashad BARAHONA, TRADE SPECIALIST-C Primary Care Provider Activ e Start: January 02, 2025 End: January 02, 2025 Dr. Poli Barfield , DO Emergency Provider Active Start : January 02, 2025 End: January 02, 2025 Team Status: Inactive Member Role Status Dates Amy Rashad BARAHONA, TRADE SPECIALIST-C Primary Care Provider Activ e Start: January 04, 2025 End: January 04, 2025 Dr. Perico Norman , DO Emergency Provider Active Start: January 04, 2025 End: January 04, 2025 INFORMATION SOURCE (unrecogn ized section and content) DATE CREATED AUTHOR 01/24/2023 [facility] DATE CREATED AUTHOR AUTHOR'S ORGANIZ ATION 02/18/2023 [facility] DATE CREATED AUTHOR AUTHOR'S ORGANIZ ATION 04/19/2023 [facility] ([place]) DATE CREATED AUTHOR AUTHOR'S ORGANIZ ATION 02/02/2024 [facility] DATE CREATED AUTHOR AUTHOR'S ORGANIZ ATION 07/05/2024 [facility] DATE CREATED AUTHOR AUTHOR'S ORGANIZ ATION 01/07/2025 [facility] Scheduled Active and Recently Administ ered Medications [...] 1139 (New Bag - Prov ider: Tamica Penaloza, RYNE)1209 (Stopped - Provider: Tamica Penaloza RN) dicyclomine [...] BE BASED ON THE PRIMARY CLINICAL RECORDS. [facility]. provides no warranty or guarantee of the accuracy or completeness of information in this document.
[2025-01-07] MEDS: Ondansetron 4 MG/2 ML Vial IV (17:05)
[2025-01-07 17:15] LABS: Bedside Glucose 86 mg/dL (74-106)
[2025-01-07] MEDS: KCl 20MEQ in D5NS 20 MEQ/1,000 ML IV.SOLN. 125 MEQ IV (17:19)
--- NOTE | 2025-01-07 18:08 | PCM.HP.STD ---
HPI - General General Date of Admission: 01/07/25 Date of Service: 01/07/25 Chief Complaint: Intentional insulin overdose HPI Narrative SHOLA PATTON, is a 34 F who presents to the emergency room at [facility] admitting that she took an overdose of insulin in an attempt to kill herself. Patient took 600 units of Lantus subcu at approximately 6 AM today. Patient has had some stressors in her life recently including the break-up of her boyfriend and eviction from the hotel where she was staying. Patient is alert, she is able to intake food and liquids at this time, patient's glucose on her BMP was 85, potassium was 2.8. CBC showed an elevated white blood cell count of 16,000. Toxicology was positive for cannabinoids, blood alcohol level was less than 10. Patient will be admitted to PCU, she will be placed on D5 W with potassium, potassium supplementation was given to her in the emergency room, blood sugars will be checked hourly, BMP will be obtained tomorrow morning along with a CBC. When patient is medically stable, she will be seen by crisis. [facility] Medical History Borderline personality disorder Depression with anxiety Obesity (BMI 30-39.9) Medical non-compliance Cyclic vomiting syndrome Diabetic ketoacidosis Cannabis abuse Type 2 diabetes mellitus with peripheral neuropathy Diabetes GERD (gastroesophageal reflux disease) Wears glasses History of MRSA infection Borderline personality disorder Alcohol use Insulin dependent diabetes mellitus Dietary restriction Heartburn Smoker Shortness of breath on exertion Leg cramps Neuropathy, diabetic Elevated serum creatinine Failure of outpatient treatment Nausea and vomiting Diabetes mellitus with diabetic polyneuropathy Type 2 diabetes mellitus with foot ulcer Anxiety Depression Constipation Asthma Diabetes Home Medications ?Medication ?Instructions ?Recorded ?Last Taken ?Type insulin glargine 100 unit/mL (3 25 unit subcut BID diabetes 08/12/22 01/07/25 History mL) subcutaneous pen (Lantus Solostar U-100 Insulin) dulaglutide 4.5 mg/0.5 mL 4.5 mg subcut SA diabetes 11/25/24 01/07/25 History subcutaneous pen injector (Trulicity) linaclotide 145 mcg capsule 145 mcg PO QAM IBS #30 caps 12/13/24 12/29/24 Rx (Linzess) promethazine 25 mg tablet 25 mg PO Q6H PRN nausea and 01/01/25 Unknown Rx vomiting #25 tabs Allergy/AdvReac Type Severity Reaction Status Date / Time No Known Allergies Allergy Verified 01/07/25 12:49 Family History Other Bleeding disorder Cancer Diabetes Hypertension Surgical History Hx of foot surgery Hx of foot surgery Social History Smoking Status: Former smoker alcohol intake: never substance use type: does not use what type of physical activity do you participate in: none Homelessness:: Unsheltered ROS Constitutional Constitutional: Denies anorexia, change in weight, fever(s), night sweats or weakness Eyes Eyes: Denies blurry vision, change in vision, discharge from eye(s) or eye pain Cardiovascular Cardiovascular: Denies chest pain, claudication, edema or palpitations Respiratory/Chest Respiratory/Chest: Denies cough, hemoptysis, shortness of breath at rest or shortness of breath with exertion Gastrointestinal Gastrointestinal: Denies abdominal pain, constipation, diarrhea, hematemesis, hematochezia, melena, nausea or vomiting Genitourinary Genitourinary: Denies dysuria, hematuria, urinary frequency, urinary hesitancy, urinary incontinence or urinary urgency Musculoskeletal Musculoskeletal: Denies back pain, joint pain, joint stiffness, joint swelling, myalgias or neck pain Neurologic Neurologic: Denies abnormal gait, abnormal speech, dizziness, focal weakness, headache(s), loss of vision, numbness, other visual disturbances, paresthesias, syncope or tingling Psychiatric Psychiatric: Reports anxiety, depression and suicidal ideation; Denies cognitive impairment, irritability or mood swings Endocrine Endocrinology: Reports other Details: Poorly controlled diabetes ; Denies change in body appearance, cold intolerance, excessive sweating, heat intolerance, polydipsia or polyuria Hematologic/Lymphatic Hematologic/Lymphatic: Denies none, anemia, easy bleeding, easy bruising or lymphadenopathy Allergic/Immunologic Allergic/Immunologic: Denies rhinitis, urticaria, eczemia or asthma Vital Signs Vital Signs Vital Signs: 01/07/25 12:49 01/07/25 12:53 01/07/25 13:28 Temperature 97.7 F L Temperature Source Oral Pulse Rate 85 106 H Respiratory Rate 10 L Respiratory Pattern Normal Blood Pressure 133/92 H 118/82 H Blood Pressure Mean 105 94 Blood Pressure Source Blood Pressure Position Blood Pressure Location Pulse Ox 100 99 Oxygen Delivery Method Room Air Room Air 01/07/25 13:30 01/07/25 14:00 01/07/25 14:30 Temperature 98 F Temperature Source Pulse Rate 102 H 92 84 Respiratory Rate 13 14 19 H Respiratory Pattern Blood Pressure 139/91 H 132/79 H 121/71 H Blood Pressure Mean 103 93 87 Blood Pressure Source Blood Pressure Position Blood Pressure Location Pulse Ox 100 100 100 Oxygen Delivery Method 01/07/25 15:00 01/07/25 15:30 01/07/25 16:00 Temperature Temperature Source Pulse Rate 93 91 101 H Respiratory Rate 16 19 H 18 Respiratory Pattern Blood Pressure 124/88 H 133/90 H 125/89 H Blood Pressure Mean 98 102 102 Blood Pressure Source Blood Pressure Position Blood Pressure Location Pulse Ox 100 100 98 Oxygen Delivery Method 01/07/25 16:30 01/07/25 17:32 Temperature 98.2 F Temperature Source Oral Pulse Rate 81 90 Respiratory Rate 11 L 16 Respiratory Pattern Blood Pressure 122/69 H 145/90 H Blood Pressure Mean 85 108 Blood Pressure Source Monitor Blood Pressure Position Semi-Fowlers Blood Pressure Location Left Arm Pulse Ox 99 100 Oxygen Delivery Method Room Air Weight Weight: 104.4 kg Body Mass Index (BMI) 37.1 Physical Exam Const alert, oriented x3 and no apparent distress General Appearance: cooperative, well kempt and well developed Orientation / Consciousness: awake, oriented to person, oriented to place and oriented to time HEENT normocephalic, head/scalp atraumatic, hearing grossly normal bilaterally and moist oral mucous membranes Eyes PERRL, EOMs intact bilaterally and conjunctivae normal Neck supple, no JVD and thyroid normal General: trachea midline Resp normal respiratory effort, no retractions, no use of accessory muscles and clear to auscultation bilaterally Auscultation: Negative for rales, rhonchi or wheezes Cardio regular rate, regular rhythm, S1 normal heart sound, S2 normal heart sound, no murmurs, no rub and no gallops GI normal to inspection, nondistended, normoactive bowel sounds, soft to palpation, non-tender and non-distended Extremity no clubbing, cyanosis or edema Skin no rashes or lesions noted General Skin Exam: no breakdown Neuro oriented x3, CN's II-XII intact bilaterally, moves all extremities, no focal motor deficits and no sensory deficits noted Sensorium / Orientation: awake and alert Speech: speech normal Psych Psych Narrative: Patient has flat affect Mood & Affect: depressed Results Lab / Micro Data 01/07/25 12:52 01/07/25 12:52 Labs: Laboratory Results - last 24 hr 01/07/25 12:48: POC Glucose 71 L 01/07/25 12:52: WBC 16.0 H, RBC 4.75, Hgb 13.1, Hct 38.5, MCV 81.1, MCH 27.6, MCHC 34.0, RDW Std Deviation 42.3, RDW Coeff of John 14.6, Plt Count 477 H, MPV 9.5, Immature Gran % (Auto) 0.600, Neut % (Auto) 63.9, Lymph % (Auto) 27.8, [place] % (Auto) 7.4, Eos % (Auto) 0.1, Baso % (Auto) 0.2, Absolute Neuts (auto) 10.2 H, Absolute Lymphs (auto) 4.44, Nucleated RBC % 0, Sodium 136, Potassium 2.8 L, Chloride 98, Carbon Dioxide 20.7 L, Anion Gap 18 H, BUN 11, Creatinine 1.10, Estim Creat Clear Calc 90.29, Est GFR (MDRD) Non-Af 68, BUN/Creatinine Ratio 10.4, Glucose 85, Calcium 9.1, Total Bilirubin 0.64, AST 35 H, ALT 17, Alkaline Phosphatase 74, Total Protein 7.7, Albumin 3.9, Globulin 3.8, Albumin/Globulin Ratio 1.0, Serum , Qual NEGATIVE, Ethyl Alcohol < 10.1 01/07/25 13:04: Urine Color Yellow, Urine Clarity Sl. Cloudy, Urine pH 6.0, Ur Specific [place] 1.015, Urine Protein 30 H, Urine Glucose (UA) Normal, Urine Ketones Negative, Urine Occult Blood 250 H, Urine Nitrite Negative, Urine Bilirubin Negative, Urine Urobilinogen Normal, Ur Leukocyte Esterase 25 H, Urine RBC 0-5 SEEN, Urine WBC 5-10 SEEN, Ur Squamous Epith Cells 0-5 SEEN, Urine Bacteria 2+, Urine Mucus 1+, Urine Opiates Screen NEGATIVE, U Buprenorphine Qual NEGATIVE, Ur Oxycodone Screen NEGATIVE, Urine Methadone Screen NEGATIVE, Urine Fentanyl Screen NEGATIVE, Ur Barbiturates Screen NEGATIVE, Ur Phencyclidine Scrn NEGATIVE, Ur Amphetamines Screen NEGATIVE, U Benzodiazepines Scrn NEGATIVE, Urine Cocaine Screen NEGATIVE, U Cannabinoids Screen PRESUMPTIVE POSITIVE 01/07/25 13:47: POC Glucose 111 H 01/07/25 14:48: POC Glucose 97 01/07/25 15:45: POC Glucose 68 L 01/07/25 16:53: POC Glucose 86 Assessment & Plan Assessment/Plan (1) Suicidal behavior: PLAN: Plan 1. Intentional Lantus insulin overdose-suicide attempt-patient will be admitted to PCU, blood sugars will be monitored closely, patient will be placed on D5W with potassium, when she is medically stable she will be seen by crisis #2 hypokalemia-patient was given potassium replacement, BMP will be repeated tomorrow morning #3 borderline personality disorder with chronic depression/anxiety-complicates care, management, recovery, and prognosis #4 type 1 diabetes mellitus-under poor control, probably due to patient noncompliance Total clinical time spent by myself addressing the patient's medical issues, reviewing all of her data, and collaborating with patient's care team: 75 minutes Charges/Coding Visit Charges Inpatient E&M: [id number] Init Hosp L3
[2025-01-07 18:14] LABS: Bedside Glucose 75 mg/dL (74-106)
[2025-01-07] MEDS: Dextrose 10%-Water 250 ML 999 ML IV ×4 (18:25→23:27)
[2025-01-07] MEDS: Dextrose 10%-Water 250 ML 60 ML IV (18:42)
[2025-01-07 19:03] LABS: Bedside Glucose 156 mg/dL (74-106)
--- NOTE | 2025-01-07 21:13 | NURSING ---
Attempted PIV x2 at this time without success. Additional RN requested for attempt at PIV.
[2025-01-07] MEDS: proMETHazine 25 MG Tablet PO (21:17)
--- NOTE | 2025-01-07 21:29 | CT_ITS ---
PROCEDURE: ABDOMEN/PELVIS W IV CONT ONLY 01/07/2025 REASON FOR EXAM: ABDOMINAL PAIN TECHNIQUE: ABDOMEN/PELVIS W IV CONT ONLY Coronal and Sagittal reconstruction series were provided. CONTRAST: Isovue 370 VOLUME: 92 mL One or more dose reduction techniques were used (e.g., Automated exposure control, adjustment of the mA and/or kV according to patient size, use of iterative reconstruction technique. RADIATION DOSE SUMMARY: CTDlvol: 33 mGy DLP: 1323 mGycm COMPARISON: 01/04/2025 FINDINGS: Bilateral lower lobe tree-in-bud densities, possible bronchiolitis. Normal heart size. Hepatic steatosis. Normal gallbladder, pancreas, spleen, adrenal glands and kidneys. No hydronephrosis. Unremarkable bladder. Normal uterus and ovaries. No retroperitoneal or pelvic adenopathy. No free air. Nondistended bowel. Normal appendix. No acute large bowel findings. No acute abdominal wall findings. CT/Abdomen/Pelvis W IV Cont ONLY IMPRESSION: No acute findings Reading [facility]
--- NOTE | 2025-01-07 21:32 | PCM.HOSP.N ---
Hospitalist Note Despite patient being on D10 running at 60 mL/h she has had significant continued hypoglycemic events. Will transition patient to the ICU with upsetter helper consultation per protocol with continued close glucose monitoring with adjustments of drip as needed. Given ongoing severe abdominal pain although this could be related to be cautious will obtain CT abdomen and pelvis with IV contrast stat. Will make NPO, add IV PPI, add IV dilaudid in the interim and hold on further toradol until CT results.
[2025-01-07] MEDS: HYDROmorphone 1 MG/ML Syringe IV (21:52)
--- NOTE | 2025-01-07 22:40 | NURSING ---
Pt belongings taken to ICU at this time.
[2025-01-07] MEDS: 0.9% Normal Saline (1000mL) 1,000 ML 100 ML IV (22:51)
[2025-01-07] MEDS: Potassium Chloride 10mEq/100mL 10 MEQ/100 ML IV.SOLN. 100 MEQ IV BOLUS ×2 (22:51→23:40)
[2025-01-07] MEDS: 0.9% Saline Lock 10 ML Syringe IV (22:51)
[2025-01-07] MEDS: 0.9% Normal Saline (1000mL) 1,000 ML 999 ML IV (23:27)
[2025-01-07 23:40] LABS: Bedside Glucose 74 mg/dL (74-106)
[2025-01-07 23:40] LABS: Bedside Glucose 121 mg/dL (74-106)
[2025-01-07 23:40] LABS: Bedside Glucose 46 mg/dL (74-106)
[2025-01-07 23:40] LABS: Bedside Glucose 105 mg/dL (74-106)
[2025-01-07 23:40] LABS: Bedside Glucose 153 mg/dL (74-106)
[2025-01-07 23:40] LABS: Bedside Glucose 96 mg/dL (74-106)
[2025-01-07] MEDS: Sodium Chloride 19.25 MEQ in Dextrose 10%-Water 250 ML 20 MEQ IV (23:43)
[2025-01-08] VITALS (16 sets, daily range): BP systolic 110–149; BP diastolic 56–109; PULSE 70–111; RESP 12–25; TEMP 36.1–36.8; O2SAT 96–100; BMI 38.2
[2025-01-08] MEDS: Dextrose 10%-Water 250 ML 999 ML IV ×2 (01:03→04:52)
[2025-01-08 01:18] LABS: Bedside Glucose 107 mg/dL (74-106)
[2025-01-08 01:18] LABS: Bedside Glucose 57 mg/dL (74-106)
[2025-01-08 01:18] LABS: Bedside Glucose 58 mg/dL (74-106)
[2025-01-08] MEDS: HYDROmorphone 0.5 MG/0.5 ML SYRINGE IV (03:51)
[2025-01-08 03:55] LABS: Absolute Lymphocyte Count 4.91 X10^3/uL (0.83-4.51); Basophil# 0.03 X10^3/uL; Basophil% 0.3 % (0-1); Eosinophil# 0.05 X10^3/uL; Eosinophils% 0.4 % (0-5); Hematocrit 33.6 % (37-47); Lymphocyte # 4.91 X10^3/ul (0.83-4.51); Mean Corp Hgb Conc 32.7 g/dL (32-36); Mean Corpuscular Hgb 27.4 pg (27.0-32.0); Mean Corpuscular Volume 83.8 fL (81-99); Mean Platelet Vol. 9.6 fl (6.2-12.0); Monocyte# 0.91 X10^3/uL; Monocyte% 7.6 % (0-10); NRBC Flagged by Analyzer 0 % (0-5); Neutrophil # 6.01 X10^3/uL (2.7-7.7); Platelet Count 299 K/mm3 (150-450); RBC Distribution Width CV 14.8 % (11.6-14.6); RBC Distribution Width SD 44.8 fl (35.1-43.9); Red Blood Count 4.01 M/mm3 (4.2-5.4)
[2025-01-08 05:28] LABS: Anion Gap 14 (5-15); BUN 10 mg/dL (4-19); BUN/Creat Ratio 11.2 RATIO (10-20); Calcium,Total 8.2 mg/dL (7.6-11.0); Carbon Dioxide 23.8 mmol/L (21.0-32.0); Chloride 100 mmol/L (98-108); Creatinine, Serum 0.91 mg/dL (0.70-1.20); EST Glomerular Filtration Rate 86 (>60); Estimated Creatinine Clearance 108.36 ml/min (50-250); Glucose 81 mg/dL (70-99); Potassium 2.9 mmol/L (3.3-5.1); Sodium Level 137 mmol/L (133-145)
[2025-01-08 05:42] LABS: Bedside Glucose 71 mg/dL (74-106)
[2025-01-08 05:42] LABS: Bedside Glucose 115 mg/dL (74-106)
[2025-01-08 05:42] LABS: Bedside Glucose 130 mg/dL (74-106)
[2025-01-08 05:42] LABS: Bedside Glucose 85 mg/dL (74-106)
[2025-01-08] MEDS: 0.9% Normal Saline (1000mL) 1,000 ML 100 ML IV (06:30)
[2025-01-08] MEDS: Potassium Chloride 10mEq/100mL 10 MEQ/100 ML IV.SOLN. 100 MEQ IV BOLUS ×4 (06:41→10:12)
[2025-01-08 08:10] LABS: Bedside Glucose 72 mg/dL (74-106)
[2025-01-08 08:10] LABS: Bedside Glucose 103 mg/dL (74-106)
[2025-01-08 08:10] LABS: Bedside Glucose 132 mg/dL (74-106)
[2025-01-08 08:10] LABS: Bedside Glucose 94 mg/dL (74-106)
[2025-01-08] MEDS: Potassium Chloride 40 MEQ in Dextrose 5%-Water (1000mL Bag) 1,000 ML 125 MEQ IV (08:40)
[2025-01-08 10:37] LABS: Bedside Glucose 138 mg/dL (74-106)
[2025-01-08 10:37] LABS: Bedside Glucose 114 mg/dL (74-106)
--- NOTE | 2025-01-08 11:09 | CASEMGMT ---
Addendum entered by Irma Hunter 01/08/25 15:40: ABIGAIL collaborated with park worker supervisor, Alejandrina. Alejandrina reports that she is working on psych placement for pt[facility] staff [facility]. ILDEFONSO Villanueva Original Note: Social Work- ABIGAIL called crisis and advised that pt is medically ready for evaluation. ABIGAIL faxed documentation to [facility] crisis for review. ICU bedside nurse notified. ABIGAIL remains available to follow. ILDEFONSO Villanueva
[2025-01-08] MEDS: Pantoprazole Sodium 40 MG Tablet PO (11:18)
--- NOTE | 2025-01-08 11:34 | CASEMGMT ---
RYNE LUJAN Readmission Chart Review Index Admission: 12/31-01/01/25. Dx: DKA, cyclical N/V, Medical Noncompliance Current: 01/07/25. Dx: Suicide Attempt This pt also has a previous admission (12/30-12/31) where she left AMA. See readmission chart review. Pt presented again to [facility] on 12/31 with the above diagnosis. From that admission, the pt discharged home with her SO and was to follow up with Endocrinology. The pt re-presents to [facility] ER after a suicide attempt from an overdose of insulin. Per the H&P, the pt has had some stressors in her life recently including the break-up of her boyfriend and eviction from the hotel where she was staying. Moving forward, the plan is for Crisis to evaluate the pt and this has been established through . See note. Tarik TAVARES RN, CM
[2025-01-08 11:37] LABS: Bedside Glucose 128 mg/dL (74-106)
[2025-01-08] MEDS: proMETHazine 25 MG Tablet PO (12:42)
[2025-01-08 15:38] LABS: Potassium 3.5 mmol/L (3.3-5.1)
[2025-01-08] MEDS: proCHLORPERazine 10 MG/2 ML Vial IV (16:31)
--- NOTE | 2025-01-08 16:37 | DS.PCM_ITS ---
Providers Date of Admission: 01/07/25 Date of Discharge: 01/08/25 Primary Care Physician: Amy Dasilva [facility], SEALING MACHINE OPERATOR-C Reason For Visit: SUICIDE ATTEMPT-OVERDOSE OF INSULIN Diagnosis Discharge Diagnosis (1) Suicidal behavior: Status: Acute Code(s): R45.89 - Other symptoms and signs involving emotional state Plan 1. Intentional Lantus insulin overdose-suicide attempt-patient will be admitted to PCU, blood sugars will be monitored closely, patient will be placed on D5W with potassium, when she is medically stable she will be seen by crisis #2 hypokalemia-patient was given potassium replacement, BMP will be repeated tomorrow morning #3 borderline personality disorder with chronic depression/anxiety-complicates care, management, recovery, and prognosis #4 type 1 diabetes mellitus-under poor control, probably due to patient noncompliance Total clinical time spent by myself addressing the patient's medical issues, reviewing all of her data, and collaborating with patient's care team: 75 minutes Medications at Discharge Home Medications insulin glargine 100 unit/mL (3 mL) subcutaneous pen (Lantus Solostar U-100 Insulin) 25 unit subcut BID diabetes 08/12/22 dulaglutide 4.5 mg/0.5 mL subcutaneous pen injector (Trulicity) 4.5 mg subcut SA diabetes 11/25/24 linaclotide 145 mcg capsule (Linzess) 145 mcg PO QAM IBS #30 caps 12/13/24 promethazine 25 mg tablet 25 mg PO Q6H PRN nausea and vomiting #25 tabs 01/01/25 Hospital Course Operations None Procedures None Summary of Care Provided Minutes Spent on Discharge: 31 Hospital Course: This 34-year-old white female with a history of personality disorder was seen in the emergency room of [facility] stating that he took an overdose of insulin intentionally-she used up to Lantus insulin pens approximately 6:30 AM and did not come to the emergency room until approximately 11:30 AM. This was a total of 600 units of Lantus. Labs were obtained, her initial BMP was remarkable for potassium of 2.8 and a glucose of 85, CBC showed a white blood cell count of 16, the patient was alert and did follow instructions appropriately. She was given food and orange juice and blood sugars were monitored in the ER for approximately 3 to 4 hours. It became evident that the patient needed to be admitted and I admitted her to PCU with hourly blood sugars. Patient was also given potassium replacement and repeat labs were obtained. That night, her blood sugars dropped with blood sugars into the 40s, at that time, the patient was transferred to ICU for further care. She was maintained on D10 and in the morning on 01/08/2025, her blood sugar stopped dropping. She was seen by crisis that day and we received approval for her to go to [facility] and [place]. On 01/08/2025, patient was seen and examined: On examination she appeared her stated age, she does not appear to be in any distress. Vital signs as documented. Skin warm and dry and without overt rashes. Neck without JVD, thyroid appears normal, trachea is midline, neck is supple. Lungs clear, normal air movement was noted. Heart exam notable for regular rhythm, normal sounds and absence of murmurs, rubs or gallops. Abdomen unremarkable and without evidence of organomegaly, masses, or abdominal aortic enlargement, bowel sounds are present in all 4 quadrants, no abdominal tenderness was noted. Extremities nonedematous, no cyanosis was noted, no clubbing was noted. Neuro: Cranial nerves II through XII are grossly intact, no focal motor deficits were noted, sensation to light touch and pinprick is intact, motor exam 5/5 throughout. Psych: Patient is alert and oriented x3, she does not appear anxious or depressed, she does not appear agitated. Patient was transferred to [facility] for further care in a psychiatric facility there ([facility]) in stable condition on 01/08/2025 Medical Records Data Homelessness:: Unsheltered Weight / BMI Weight Weight: 107.6 kg Body Mass Index (BMI) 38.2 ABG / Lab / Microbiology Data 01/08/25 03:40 01/08/25 14:33 Laboratory: Laboratory Results - last 24 hr 01/07/25 16:53: POC Glucose 86 01/07/25 17:37: POC Glucose 75 01/07/25 18:41: POC Glucose 156 H 01/07/25 19:36: POC Glucose 96 01/07/25 20:47: POC Glucose 46 L 01/07/25 21:22: POC Glucose 105 01/07/25 21:38: POC Glucose 74 01/07/25 21:59: POC Glucose 153 H 01/07/25 22:24: POC Glucose 121 H 01/07/25 23:22: POC Glucose 57 L 01/08/25 00:07: POC Glucose 107 H 01/08/25 00:59: POC Glucose 58 L 01/08/25 01:42: POC Glucose 130 H 01/08/25 02:23: POC Glucose 115 H 01/08/25 03:40: WBC 12.0 H, RBC 4.01 L, Hgb 11.0 L, Hct 33.6 L, MCV 83.8, MCH 27.4, MCHC 32.7, RDW Std Deviation 44.8 H, RDW Coeff of John 14.8 H, Plt Count 299, MPV 9.6, Immature Gran % (Auto) 0.700, Neut % (Auto) 50.0, Lymph % (Auto) 41.0, [place] % (Auto) 7.6, Eos % (Auto) 0.4, Baso % (Auto) 0.3, Absolute Neuts (auto) 6.0, Absolute Lymphs (auto) 4.91 H, Nucleated RBC % 0, Sodium 137, P otassium 2.9 L, Chloride 100, Carbon Dioxide 23.8, Anion Gap 14, BUN 10, Creatinine 0.91, Estim Creat Clear Calc 108.36, Est GFR (MDRD) Non-Af 86, BUN/Creatinine Ratio 11.2, Glucose 81, Calcium 8.2 01/08/25 03:42: POC Glucose 85 01/08/25 04:48: POC Glucose 71 L 01/08/25 05:31: POC Glucose 103 01/08/25 06:34: POC Glucose 72 L 01/08/25 07:00: POC Glucose 132 H 01/08/25 07:52: POC Glucose 94 01/08/25 09:07: POC Glucose 114 H 01/08/25 10:10: POC Glucose 138 H 01/08/25 11:17: POC Glucose 128 H 01/08/25 14:33: Potassium 3.5 Radiography Diagnostic Testing: Radiology Impression Abdomen/Pelvis CT 01/07/25 21:29 IMPRESSION: No acute findings Reading Location: [place] [id number] D/C Instructions DC O2, CPAP, BIPAP Needs Home O2 Discharge instructions: No Meaningful Use Info Meaningful Use Meaningful Use Diagnoses (Choose all that apply): None applicable Ischemic Stroke Statin Dosing Therapy Reference: STATIN DOSE THERAPY REFERENCE: * Patients > 75 years receive moderate or high dose statin therapy. * Patients 75 years or YOUNGER should receive HIGH intensity statin dose unless contraindicated. You will be required to document reason for non-treatment if statin daily dose does not meet guidelines. HIGH DOSE STATIN THERAPY DAILY Atorvastatin > than or = to 40 mg Rosuvastatin > than or = to 20 mg Amlodipine + Atorvastatin > than or = to 2.5/40 mg Ezetimibe + Simvastatin 10/80 mg Simvastatin 80mg Discharge Plan Admission Admit Date/Time: 01/07/25 15:24 Attending Provider: Pranay Coulter Primary Care Provider: Amy Dasilva Discharge Orders/Prescriptions Prescriptions: No Action Linzess 145 mcg capsule 145 mcg PO QAM Qty: 30 2RF insulin glargine [Lantus Solostar U-100 Insulin] 100 unit/mL (3 mL) insulin pen 25 unit SUBCUT BID Patient Comments: PT HAS BEEN TAKING 35-40 UNITS TWICE DAILY Trulicity 4.5 mg/0.5 mL pen injector 4.5 mg subcut SA promethazine 25 mg tablet 25 mg PO Q6H PRN (Reason: nausea and vomiting) Qty: 25 0RF Rx Instructions: 1 or 2 every 6 hours as needed for nausea and vomiting Referrals / Follow Up: Amy Dasilva, SEALING MACHINE OPERATOR-C [Primary Care Provider] - Disposition Discharge Orders: Discharge Patient (Routine); Ordered 01/08/25 Ordered By: Dr. Pranay Coulter Charges/Coding Visit Charges Inpatient E&M: 48316 Disch Hosp >30min
[2025-01-08 17:00] LABS: Bedside Glucose 162 mg/dL (74-106)
--- NOTE | 2025-01-08 19:01 | NURSING ---
called report to [facility] at [facility] in [place], all questions answered at this time.
--- NOTE | 2025-01-08 19:36 | NURSING ---
transport here to take pt to [facility] ivs removed with catheters intact, clean dry dressing applied, pt tolerated well. pt and transport deny any further needs or questions at this time.
== END 2025-01-08 19:39 | DRG 817 ==
LOC: ED 13:58 → PCU 16:15 → ICU 22:37
PROVIDERS: Physician Assistant; Admitting Provider Internal Medicine; Emergency Provider Emergency Medicine; PCP Nurse Practitioner Family; Referring Provider Emergency Medicine; Visit Provider Internal Medicine
DX: T38.3X2A Poisoning by insulin and oral hypoglycemic [antidiabetic] drugs, intentional self-harm, initial encounter (principal); D72.829 Elevated white blood cell count, unspecified; E10.42 Type 1 diabetes mellitus with diabetic polyneuropathy; E66.9 Obesity, unspecified; E86.0 Dehydration; F32.A Depression, unspecified; J45.909 Unspecified asthma, uncomplicated; Z89.432 Acquired absence of left foot; F60.3 Borderline personality disorder; Z79.4 Long term (current) use of insulin; E87.6 Hypokalemia; R11.15 Cyclical vomiting syndrome unrelated to migraine; F41.9 Anxiety disorder, unspecified; K21.9 Gastro-esophageal reflux disease without esophagitis; Z87.891 Personal history of nicotine dependence; Z83.3 Family history of diabetes mellitus; Z79.85 Long-term (current) use of injectable non-insulin antidiabetic drugs; Z91.119 Patient's noncompliance with dietary regimen due to unspecified reason; N83.202 Unspecified ovarian cyst, left side; Z68.37 Body mass index [BMI] 37.0-37.9, adult
CPT/HCPCS: 74177; 80048; 80053; 80076; 80307; 81001; 82010; 82077; 82803; 82962; 83605; 83690; 83735; 83930; 84132; 84703; 85025; 93005; 96361; 96365; 96375; 99285; Q9967; A4216; J2405

== ENCOUNTER → 2025-01-31 | Outpatient (CLI) | payer MEDICAID, SELFPAY ==
[2025-01-31 16:53] LABS: Hematocrit 38.3 % (37-47); Hemoglobin 12.6 g/dL (12.0-15.0); Immature Granulocytes Count 0.080 X10^3/uL (0.0-0.0); Mean Corp Hgb Conc 32.9 g/dL (32-36); Mean Corpuscular Volume 84.5 fL (81-99); Mean Platelet Vol. 9.2 fl (6.2-12.0); NRBC Flagged by Analyzer 0 % (0-5); Platelet Count 384 K/mm3 (150-450); RBC Distribution Width CV 13.6 % (11.6-14.6); RBC Distribution Width SD 42.2 fl (35.1-43.9); Red Blood Count 4.53 M/mm3 (4.2-5.4); White Blood Count 10.5 K/mm3 (4.4-11.0)
[2025-01-31 17:43] LABS: AST(SGOT) 21 U/L (<=31); Alanine Aminotransfer ALT/SGPT 13 U/L (<=34); Albumin, Serum 4.1 g/dL (3.5-5.0); Alkaline Phosphatase 101 U/L (35-104); Anion Gap 15 (5-15); BUN 16 mg/dL (4-19); BUN/Creat Ratio 17.3 RATIO (10-20); Calcium,Total 9.4 mg/dL (7.6-11.0); Carbon Dioxide 18.2 mmol/L (21.0-32.0); Chloride 101 mmol/L (98-108); Globulin 3.9 g/dL (2.2-4.2); Glucose 205 mg/dL (70-99); Potassium 4.3 mmol/L (3.3-5.1)
[2025-01-31 19:28] LABS: Amylase 41 U/L (28-100); Lipase 54 U/L (13-75)
== END | disposition home or self-care (01) ==
LOC: VSLAB 14:52
PROVIDERS: PCP Nurse Practitioner Family
DX: R10.9 Unspecified abdominal pain (principal)
CPT/HCPCS: 36415; 80053; 82150; 83690; 85025

== ENCOUNTER 2025-02-15 05:24 | Day surgery (SDC) | payer MEDICAID, SELFPAY ==
--- NOTE | 2025-02-12 16:49 | PAT.ANESEVAL ---
Pre-Assessment Diagnosis/Proposed Procedure Planned Operative Procedure(s): EGD, COLONOSCOPY Anesthesia History Anesthesia History - physical laboratory assistant: Anesthesia History - physical laboratory assistant Hx Hospitalization Yes: 12/2024 ABD PAIN 02/12/25 14:22 Any Problems With Anesthesia No 02/12/25 14:22 Cholinesterase deficiency No 02/12/25 14:22 You/Your Family Experience No 02/12/25 14:22 fever (hyperthermia) with Relationship Recent Exposure to Contagious No 12/24/23 06:14 Disease Does patient have nerve No 02/12/25 14:22 stimulator Patient instructed to have device shut off --Does patient have Pacemaker or ICD? When Was Last Pacemaker Check QUESTION #4 FULL TEXT: You/Your Family Experience fever (hyperthermia) with Anesthesia Last Oral Intake Last Oral intake: Last Oral Intake NPO since Meds taken in AM with sips of water? Meds patient instructed to take am of surgery PONV PONV - physical laboratory assistant: PONV - physical laboratory assistant Female Yes 02/12/25 14:22 HX of Motion Sickness No 02/12/25 14:22 HX of N/V After Surgery No 02/12/25 14:22 Non-Smoker Yes 02/12/25 14:22 Duration of Surgery greater No 02/12/25 14:22 than 60 minutes Number of Risk Factors 2 02/12/25 14:22 PONV Score Moderate Risk 02/12/25 14:22 Height & Weight Height & Weight: Anesthesia: Height & Weight Height 5 ft 6 in 12/13/24 08:30 Respiratory Assessment Respiratory Assessment - physical laboratory assistant: Respiratory Tract Infection Hx - physical laboratory assistant Hx Respiratory Tract Infection No 02/12/25 14:22 STOP Sleep Apnea STOP Sleep Apnea - physical laboratory assistant: STOP Sleep Apnea - physical laboratory assistant Hx Hypertension No 02/12/25 14:22 Hx Sleep Apnea No 02/12/25 14:22 CPAP BIPAP Do you snore loudly (louder No 02/12/25 14:22 than talking or can be heard Do you often feel tired/ No 02/12/25 14:22 fatigued/ sleepy during daytime? Has anyone observed you stop No 02/12/25 14:22 breathing during sleep? STOP Results Negative 02/12/25 14:22 QUESTION #5 FULL TEXT : Do you snore loudly (louder than talking or can be heard through closed doors)? 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 Specify any problems Hx of Preganancy in last 3 No 02/12/25 14:22 Months Nurse Filling Out Transfusion SEEMA 02/12/25 14:22 & Questions: Date: 02/12/25 02/12/25 14:22 Time: 14:24 02/12/25 14:22 Patient unable to answer at this time (ie. confused, unrespo /Reproduction History /Reproductive History - physical laboratory assistant: /Reproductive Hx- physical laboratory assistant Hx Now No 02/12/25 14:22 Gestational Age (in weeks): EDC: Hx Hx Para Hx Section SAB No 02/12/25 14:22 [facility] Medical History (Updated 02/12/25 @ 14:30 by Cassidy Loo) History of IBS Former smoker Borderline personality disorder Depression with anxiety Obesity (BMI 30-39.9) Medical non-compliance Cyclic vomiting syndrome Diabetic ketoacidosis Diabetes Wears glasses History of MRSA infection Borderline personality disorder Alcohol use Insulin dependent diabetes mellitus Dietary restriction Heartburn Smoker Shortness of breath on exertion Leg cramps Type 2 diabetes mellitus with peripheral neuropathy Neuropathy, diabetic Cannabis abuse Elevated serum creatinine Failure of outpatient treatment Nausea and vomiting Diabetes mellitus with diabetic polyneuropathy Type 2 diabetes mellitus with foot ulcer Anxiety Depression Constipation Asthma Diabetes Home Medications ?Medication ?Instructions ?Recorded ?Last Taken ?Type insulin glargine 100 unit/mL (3 25 unit subcut BID diabetes 08/12/22 01/07/25 History mL) subcutaneous pen (Lantus Solostar U-100 Insulin) dulaglutide 4.5 mg/0.5 mL 4.5 mg subcut TH diabetes 11/25/24 02/08/25 History subcutaneous pen injector (Trulicity) linaclotide 145 mcg capsule 145 mcg PO QAM IBS #30 caps 12/13/24 12/29/24 Rx (Linzess) promethazine 25 mg tablet 25 mg PO Q6H PRN nausea and 01/01/25 Unknown Rx vomiting #25 tabs sertraline 25 mg tablet (Zoloft) 50 mg PO DAILY 02/12/25 Unknown History Allergy/AdvReac Type Severity Reaction Status Date / Time No Known Allergies Allergy Verified 02/12/25 14:18 Family History Other Bleeding disorder Cancer Diabetes Hypertension Surgical History Hx of foot surgery Hx of foot surgery Social History Smoking Status: Former smoker alcohol intake: never substance use type: does not use what type of physical activity do you participate in: none Audit: Pertinent Findings Pertinent Findings EKG Perinent findings: 01/07/2025. Sinus rhythm short [place] 110 ms. LVH. repolarization abnormality. Recommendation Anesthesia Recommendation Anesthesia recommendation: OPTIMIZED for anesthesia
[2025-02-15] VITALS (7 sets, daily range): BP systolic 97–140; BP diastolic 69–83; PULSE 67–93; RESP 16–18; TEMP 36.2–36.9; O2SAT 99–100; BMI 37.8
--- OUTSIDE RECORDS SUMMARY | 2025-02-15 05:37 | XMS RPT_ITS | CCD ---
Author Organization [facility] Care Team Providers Care Supervisory Geographer Name Role Phone Care Physician, No Primary [...] Provider Maira, Dr. Brenda Ng Other Provider Be, Dr. Beasley Attending Provider Dr. Gale Lr Other Provider Dr. Andres Matias Other Provider Dr. Charles Green Other Provider Dr. Alex Christiansen Emergency Provider [phone] Carlitos, Dr. [place] Admit Provider Carlitos, Dr. [place] Attending Provider Dr. Valencia Urbina Other Provider Dr. Lexus Villatoro Attending Provider Dr. Lexus Villatoro Other Provider Unavailable Primary Care Provider Unavailarpita e Rashad LINE MAINTENANCE, Amy Primary Care Provider [facility] Primary Care Pro vider Dr. Willie Dhillon Emergency Provider Dr. Lexus Villatoro Admit Provider Dr. Lexus Villatoro Attending Provider Dr. Lexus Villatoro Other Provider ABDIRIZAK RAMIREZ Attending Unavailable AMY SOLORZANO Primary Care Unavailable Amy Solorzano Primary Care Provider RASHAD SORT WORKER-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, [facility] Primary Care Physicia n DEWAYNE CHACON DO Attending Unavailable DEWAYNE CHACON DO Primary Care Unavailable DEWAYNE CHACON DO Admitting Unavailable ASUNCIONGERALDINE MARUICE Admitting Unavailable ASUNCIONGERALDIEN MAURICE Attending Unavailable GERALDINE ROLAND Primary Care Unavailable [facility] Primary Care Pro vider Dr. Willie Dhillon Emergency Provider Dr. Lexus Villatoro Admit Provider Dr. Lexus Villatoro Attending Provider Dr. Lexus Villatoro Other Provider PADMINIRAFFY ESSIE Attending Unavailable RICARDO GERALDINE Referring Unavailable RASHAD SORT WORKER-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, AMY Primary Care Unava fanny WEBB SORT WORKER-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, MARTI Matthews Attending Amadavai HELENA Glynn Admitting [...] Provider Dr. Rickey Gifford Other Provider Rashad LINE MAINTENANCE, Amy Primary Care Provider [phone] Care Physician, No Primary Primary Care Provider Unavailable Dr. Javy Doss Emergency Provider Dr. Rickey Gifford Attending Provider Dr. Abdirizak Forrest Other Provider Dr. Rickey Gifford Admit Provider Dr. Rickey Gifford Other Provider Rashad LINE MAINTENANCE, Amy Primary Care Provider KHALAFI, KAMAL Admitting Unavailable KHALAFI, KAMAL Attending Unavailable MIRIAN OSLORZANOICA Primary Care Unavailable CAYETANO TAI Unavailable Unavailable Primary Care Provider Unavailabl e RASHAD, AMY Primary Care Unavailable IRAIS HANNA Referring Unavailable RASHAD, AMY Primary Care Unavailable RASHAD, AMY Primary Care Unavailable Rashad LINE MAINTENANCE-C, Amy Primary Care Provider Rashad LINE MAINTENANCE-C, Amy Attending Provider Forrest DPM, Dr. Rothman Attending Provider Lon DPM, [...] Yuliya BOYCE, Dr. Tony Peterson Attending Provider Dr. Gale Lr DO Referring Provider Clare Loo PA-C Attending Provider Rashad LINE MAINTENANCE-C, Amy Referring Provider Nayana Grigsby Attending Provider Nayana Grigsby Referring Provider Kalee Peter Referring Provider Unavailable Carolyne KIM, Dr. Ashton Emergency Provider Odell BOYCE, Dr. Hernandez Admit Provider Odell BOYCE, Dr. Hernandez Attending Provider Odell BOYCE, Dr. Hernandez Other Provider Rashad LINE MAINTENANCE-C, Amy Primary Care Provider Rashad LINE MAINTENANCE-C, Amy Attending Provider Lon DPM, Dr. Rothman Attending Provider Lon PAEZM, Dr. Rothman Referring Provider Yuliya BOYCE, Dr. Tony Peterson Attending Provider Sravan BOYCE, Drew Emergency Provider Maira BOYCE, Dr. Brenda Ng Admit Provider Maira BOYCE, Dr. Brenda Ng Other Provider Yuri BOYCE, Dr. Woody Other Provider Be KIM, Dr. Beasley Attending Provider Yuri BOYCE, Dr. Woody Attending Provider Be KIM, Dr. Beasley Referring Provider Maira BYOCE, Dr. Brenda Ng Attending Provider Be KIM, Dr. Beasley Other Provider Clare Loo PA-C Attending Provider Rashad LINE MAINTENANCE-C, Amy Referring Provider Nayana Grigsby Attending Provider Nayana Grigsby Referring Provider Kalee Peter Referring Provider Unavailable Carolyne KIM, Dr. Ashton Emergency Provider Odell BOYCE, Dr. Hernandez Admit Provider Odell BOYCE, Dr. Hernandez Attending Provider Odell BOYCE, Dr. Hernandez Other Provider de Omega KIM, Dr. Jackson Admit Provider Unavail able de Omega KIM, Dr. Jackson Attending Provider Unav ailable Grant DO, Dr. Jackson Other Provider Unavail able Yfn KIM, Dr. Pires Attending Provider Yfn KIM, Dr. Pires Other Provider Dr. Perico Norman DO Emergency Provider Dr. Fabricio Guevara MD Referring Provider Dr. Fabricio Guevara MD Emergency Provider Yfn KIM, Dr. Pires Admit Provider Carolyne KIM, Dr. Ashton Attending Provider [phone] Emerson KIM, Dr. River Attending Provider [phone] Physician, No Pcp Primary Care Provider Unavaila ble Nicole Lomax MD Primary Care Provider Unavaila ble PHYSICIAN, NO PCP Primary Care Unavailable DOUGLAS KHAN Attending Unavailable RE MAYRA~[id number], RE MAYRA~[id number] RE At tending Unavailable AVI CARPENTER Referring Unavailable NICOLE LOMAX Primary Care Unavailable RICKEY DUMONT Attending Unavailable NICOLE LOMAX Primary Care Unavailable PHYSICIAN, NO PCP Primary Care Unavailable RE MAYRA~[id number], RE MAYRA~[id number] RE At tending Unavailable Beam LINE MAINTENANCE-CFartun Attending Provider [phone] [facility] Unavailabl e Nayana Peter Attending Unavailable Nayana Peter Referring Unavailable Venkatesh Torres Attending Unavailable Rashad VSC, Amy Primary Care Unavailabl e Rashad VSC, Amy Primary Care Unavailabl e Beam Fartun BARAHONA Attending Unavailable Robotham, Annalise Consulting Unavailable Koram, Brenda Berenice Admitting Unavailable Rashad C, Amy Primary Care Unavailabl e Gale Lr Attending Unavailable Kordaphne, Brenda Berenice Consulting Unavailable Nayana Peter Attending Unavailable [facility] Primary Care Unavailabl e Kalee Peter Referring Unavailable Rashad VSC, Amy Primary Care Unavailabl e Odell, David Admitting Unavailable Odell, David Attending Unavailable Rashad C, Amy Primary Care Unavailarpita e Frantz Coulter Attending Unavailable Dewayne Grant Admitting Unavailable Dewayne Grant Consulting Unavailable Rashad VSC, Amy Primary Care Unavailabl e Robotham, Annalise Consulting Unavailable Koram, Brenda Berenice Attending Unavailable Koram, Brenda Berenice Admitting Unavailable Koram, Brenda Berenice Consulting Unavailable Robotham, Annalise Attending Unavailable [facility] Primary Care Unavailabl e Odell, David Consulting Unavailable Odell, David Attending Unavailable Odell David Admitting Unavailable [facility], Amy Attending Unavailabl e Rashad [facility], [facility] Primary Care UnavailAbdirizak Ayala Attending Unavailable Abdirizak Forrest Referring Unavailable [facility], [facility] Primary Care Unavailabl e Rashad [facility], Amy Attending Unavailabl e Rashad VSC, [facility] Primary Care Unavailabl e Rashad VSC, [facility] Primary Care Unavailabl e Poli Barfield Attending Unavailable [facility], [facility] Primary Care Unavailabl e Perico Norman Attending Unavailable [facility], [facility] Primary Care Unavailarpita e Frantz Coulter Admitting Unavailable Frantz Coulter Consulting Unavailable Frantz Coulter Attending Unavailable Fabricio Guevara Referring Unavailable [facility], [facility] Primary Care Unavailarpita e Frantz Coulter Attending Unavailable Dewayne Grant Admitting Unavailable Dewayne Grant Consulting Unavailable Frantz Coulter Consulting Unavailable [facility], [facility] Primary Care Unavailabl e Erick Khalil Consulting Unavailable Frantz Coulter Admitting Unavailable Frantz Coulter Attending Unavailable Fabricio Guevara Referring Unavailable Kushal Napoles Consulting Unavailable Jorge Lee Consulting Unavailable Jose L Landaverde Consulting Unavailable Dewayne Anne Consulting Unavailable Mekhi Turner Consulting Unavailable Olu Gomez Consulting Unavailable Brittney Lyons Consulting Unavailab Brandt Garcia Consulting Unavailable Alen Schmitt Consulting Unavailable Perico Hartley Consulting Unavailable Nikole Malik Consulting Unavailable AljunNoel jackson Consulting Unavailable Gomez, Arianna Consulting Unavailable Zackary, Bebeto Consulting Unavailable Irukulla Temo Consulting Unavailable Joanie, Prince Consulting Unavailable Dhesi, Mati Consulting Unavailable Madelyn Lancaster Consulting Unavailable Stephany Bob Consulting Unavailable Say Jewell Consulting Unavailable Keanu Cardenas Consulting Unavailable Geraldine Bui Consulting Unavailable Gale Lr Attending Unavailable Gale Lr Consulting Unavailable Abdirizak Forrest Attending Unavailable Abdirizak Forrest Referring Unavailable [facility], [facility] Primary Care Unavailabl e Clare Steve Attending Unavailable [facility], [facility] Primary Care Unavailabl Nayana Dangelo Attending Unavailable [facility] Referring UnavailGale Reno Referring Unavailable Nayana Peter Attending Unavailable Nayana Peter Referring Unavailable Rashad Amy Ruiz Primary Care Unavailabl e Allergies Allergy Classification Reported Allergen(s) Allergy Type Date of Onset Reaction(s) Facility (2 sources) Cephalexin Drug Allergy 10-31-2013 Other: See Comments [facility] Work Phone: Medications Current Medications Medication Drug Class(es) Dates Sig (Normalized) Sig (Original) aluminum hydroxide 40 mg/ml / magnesium hydroxide 40 mg/ml oral suspension (2 sources) Start: 01-15-2025 End: 01-25-2025 take 15 mL by mouth every six hours as needed aluminum-magnesium hydroxide 200-200 mg/5 mL suspension Take 15 mL by mouth every 6 (six) hours if needed for heartburn for up to 10 days. 355 mL 01/15/2025 01/25/2025 Active azithromycin 250 mg oral tablet (3 sources) [...] 0 Refill(s), 02/18/23 5:07:00 PM EDT, Pharmacy: [id number], 169.9, cm, 02/11/23 1:49:00 EDT, Height, [...] on above: Take 1 capsule by mo uth three times daily for 7 days. ciprofloxacin 500 mg oral tablet (1 source) Quinolone Antimicrobial Start: take 500 mg by mouth every twelve hours Ciprofloxacin Hcl Active 500 MG PO Q12H 10 August 15, 2022 12:00am clindamycin 300 mg oral capsule (1 source) Lincosamide Antibacterial Start: 12 hr dextromethorphan hydrobromide 30 mg / guaiFENesin 600 mg extended release oral tablet (1 source) Uncompetitive C-ahimpd-V-aspartate Receptor Antagonist, Sigma-1 Agonist Start: End: take 1 tablet by mouth every twelve hours as needed dextromethorphan-gua iFENesin (MUCINEX DM) 30-600 mg per tablet Take 1 tablet by mouth two times a day as needed for cough for up to 7 days. 14 tablet 07/03/2024 07/10/2024 Active dicyclomine hydrochloride 20 mg oral tablet (20 sources) Anticholinergic Start: End: take 1 tablet by mouth twice daily dicyclomine (BENTYL) 20 mg tablet Take 1 tablet (20 mg total) by mouth 2 (two) times a day for 10 days. 20 tablet 01/14/2025 01/24/2025 Active Start: 11-28-2024 End: 12-30-2024 Start: 04-14-2023 End: 06-27-2023 Start: 04-14-2023 End: 06-27-2023 Start: 02-08-2023 End: 05-04-2023 Start: 02-08-2023 End: 05-04-2023 take 20 mg by mouth three times daily before mealtime Dicyclomine Discontinued 20 MG PO THREE TIMES DAILY BEFORE MEALS February 08, 2023 12:00am May 04, 2023 1:23pm Start: 01-24-2023 End: 01-24-2023 dicyclomine (Bentyl) injecti on 20 mg Start: 01-09-2023 End: 01-15-2023 Start: 01-09-2023 End: 01-15-2023 docusate sodium 50 mg / sennosides, shelter 8.6 mg oral tablet (6 sources) Start: 04-06-2022 take 1 tablet by mouth once daily Sennosides-Docusate Sodium (Stimulant Laxative Plus) 8.6-50 mg tablet Active 1 - 2 TABLET PO DAILY April 06, 2022 12:00am Dulaglutide (20 sources) GLP-1 Receptor Agonist Start: 11-25-2024 Start: 11-25-2024 Dulaglutide (T rulicity) 4.5 mg/0.5 [...] A DAY 0 April 09, 2022 12:00am ibuprofen 600 mg oral tablet (4 sources) Nonsteroidal Anti-inflammatory Drug Start: 01-12-2025 End: 01-19-2025 take 1 tablet by mouth every six hours as needed ibuprofen (ADVIL,MOTRIN) 600 mg tablet Take 1 tablet (600 mg total) by mouth every 6 (six) hours if needed for mild pain or moderate pain (for pain) for up to 7 days. 28 each 01/12/2025 01/19/2025 Active 3 ml insulin glargine 100 unt/ml pen [...] Start: 06-30-20 linaclotide 0.145 mg oral capsule (12 sources) Guanylate Cyclase-C Agonist Start: 12-14-19 losartan potassium 50 mg oral tablet (10 sources) Angiotensin 2 Receptor Keisha Start: 03-05-20 take 1 tablet by mouth once daily losartan (COZAAR) 50 mg tablet Take 1 tablet by mouth once daily. 30 tablet 03/05/2023 Active Comment on above: Take 1 tablet by [facility] once daily. mupirocin 0.02 mg/mg topical ointment (1 source) RNA Synthetase Inhibitor Antibacterial Start: 11-18-19 End: 11-23-19 mupirocin (BACTROBAN) 2 % ointment Apply to affected area twice daily for 5 days. 30 g 0 11/17/2022 11/22/2022 Active Comment on above: Apply to affected ar ea twice daily for 5 days. ondansetron 4 mg disintegrating oral tablet (20 sources) Serotonin-3 Receptor Antagonist Start: 01-15-20 End: 01-15-20 4 mg, intravenous, Once, On 01/14/25 at 0248, For 1 dose Start: 01-12-2025 End: 01-21-2025 apply 1 tablet topically every eight hours for nausea ondansetron ODT (ZOFRAN-ODT) 4 mg disintegrating tablet Dissolve 1 tablet (4 mg total) on top of the tongue every 8 (eight) hours if needed for nausea or vomiting for up to 7 days. 20 tablet 01/14/2025 01/21/2025 Active Start: 01-12-2025 End: 01-12-2025 4 mg, intravenous, Once, On Wed01/12/25 at 0901, For 1 dose Start: 01-02-2025 End: 01-07-2025 Start: 05-09-2023 End: 06-27-2023 Start: 01-24-2023 End: [...] pantoprazole 40 mg delayed release oral tablet (19 sources) Proton Pump Inhibitor Start: End: take 1 tablet by mouth once daily before breakfast pantoprazole (PROTONIX) 40 mg EC tablet Take 1 tablet (40 mg total) by mouth 1 (one) time each day before breakfast for 14 days. Do not crush, chew, or split. 14 each 01/18/2025 02/01/2025 Active Start: 02-20-2023 End: 03-22-2023 take 1 tablet by mouth twice daily before mealtime pantoprazole DR (PROTONIX) 40 mg tablet Take 1 tablet by mouth twice daily before meals (0600/1600). 60 tablet 3 02/20/2023 Active Start: 01-30-2022 End: 03-23-2022 take 40 mg by mouth twice daily Pantoprazole Active 40 MG PO TWICE A DAY January 30, 2022 12:00am Comment on above: Take 40 mg by mouth twice daily. Take 1 tablet by yvonne th twice daily before meals (0600/1600). pioglitazone 30 mg oral tablet (3 sources) Peroxisome Proliferator Receptor alpha Agonist, Peroxisome Proliferator Receptor gamma Agonist, Thiazolidinedione Start: 01-31-20 take 30 mg by mouth once daily Pioglitazone Active 30 MG PO DAILY January 30, 2022 12:00am polyethylene glycol 3350 188968 mg / potassium chloride 2970 mg / sodium bicarbonate 6740 mg / sodium chloride 5860 mg / sodium sulfate 96894 mg powder for oral solution (20 sources) [...] Comment on above: Take 2 tablets by [facility] every 6 hours as needed. promethazine [...] Sodium Chl Active 1.75 GM IV Q12H 88595 40 April 08, 2022 12:00am stop date 05/18/22 dx: MRSA osteo weekly bmp, cbc, vanc trough, and esr. Fax to [phone] routine picc care per protocol Completed/Discontinued Medications [...] Start: 03-04-2023 take 2 tablets by mo ut every six hours as needed acetaminophen (TYLENOL [...] 05-04-2023 Start: 10-24-2021 take 1 tablet by yvonne every six hours as needed Hydrocodone-Acetaminophen Active [...] 2023 December 20, 2023 2:03pm Start: 07-23-2023 [id number] 200 actuat albuter ol 0.09 mg/actuat metered dose inhaler (20 sources) beta2-Adrenergic Agonist Start: 11-25-2024 End: 01-07-2025 Start: 11-25-2024 Albuterol Sulf ate 90 mcg/actuation [...] 05-04-2023 Start: 06-29-2022 take 1 tablet by yvonne th twice daily Amoxicillin-Pot Clavulanate Active 1 [...] Comment on above: Take 1 capsule by [facility] three times daily as needed for [...] Active Comment on above: Take by mouth. calcium chloride 0.0014 meq/ml / potassium chloride 0.004 meq/ml / sodium chloride 0.103 meq/ml / sodium lactate 0.028 meq/ml injectable solution (1 source) Start: 01-14-2025 End: 01-14-2025 1,000 mL, intravenous, at 1,000 mL/hr, Administer over 1 Hours, Once, On 01/14/25 at 0248, For 1 dose cefTRIAXone (Rocephin) 1,000 mg in sodium chloride 0.9 % 50 mL IVPB Mini-Bag Plus (2 sources) Start: 01-24-2023 End: 01-24-2023 cefTRIAXone (Rocephin) 1,000 mg in sodium chloride 0.9 % 50 mL IVPB Mini-Bag Plus cyclobenzaprine hydrochloride 10 mg oral tablet (20 sources) Muscle Relaxant Start: 07-23-2023 End: 11-25-2024 1 ml diphenhydrAMINE hydrochloride 50 mg/ml cartridge [...] 3:13pm Start: 10-29-2021 take 1 capsule by [facility] once daily Docusate Sodium (Colace) 100 mg capsule Active 100 MG PO DAILY October 29, 2021 12:01pm doxycycline hyclate 100 mg o ral capsule (20 sources) Tetracycline-class Drug Start: 07-29-2023 End: 12-20-2023 [...] Comment on above: Take 1 tablet by [facility] twice daily for 7 days. 2 ml droperidol 2.5 mg/ml injection (1 source) Dopamine-2 Receptor Antagonist Start: End: 5 1.25 mg, intramuscular, Once, On Wed01/15/25 at 1932, For 1 dose, Emergency Departments, Operating areas, and Post-operative areas (one time doses) for patients who FAIL TO SHOW ADEQUATE RESPONSE to other treatments: -For doses GREATER than OR equal to 2.5 mg, ECG monitoring should be performed prior to treatment and continued for 2 to 3 hours after completing treatment -For doses LESS than 2.5 mg, ECG monitoring is NOT required Head Pain units if other agents are unsuccessful (MAX of 2.5 mg three times daily): -Monitor ECG at baseline and daily while on regimen, Has the patient failed to show an adequate response to other treatments? (See order restrictions above): Yes, Is a droperidol dose GREATER than OR equal to 2.5 mg being ordered? No famotidine 20 mg oral tablet (2 sources) Histamine-2 Receptor Antagonist Start: End: take 1 tablet by mouth twice daily famotidine (PEPCID) 20 mg tablet Take 1 tablet (20 mg total) by mouth 2 (two) times a day for 15 days. 30 tablet 01/15/2025 01/18/2025 Discontinued (Alternate therapy) Fiber (10 sources) Start: End: take 1 tablet by mouth once daily Fiber tablet,chewable Discontinued 1 {tbl} PO DAILY July 16, 2023 1:00am November 25, 2024 1:29pm Start: 07-16-2023 take 1 tablet by yvonne th once daily Fiber tablet,chewable Active 1 {tbl} PO DAILY July 16, 2023 1:00am Start: 07-16-2023 take 1 tablet by yvonne th once daily Fiber Active 1 TABLET [...] Comment on above: Take 1 tablet by yvonne th daily with breakfast. Haloperidol (1 source) Typical Antipsychotic Start: 01-18-2025 End: 01-18-2025 2.5 mg, intravenous, Once, On Shannan 01/18/25 at 0630, For 1 dose, May be ordered via either intramuscular or intravenous route. If ordered IV, maximum of 5 mg/minute. 1 ml HYDROmorphone hydrochloride 1 mg/ml cartridge (3 sources) Opioid Agonist Start: 01-18-2025 End: 01-18-2025 1 mg, intravenous, Once, On [facility] 01/18/25 at 0630, For 1 dose Start: 01-14-2025 End: 01-14-2025 inject 1 mg by intramuscular injection once 1 mg, intramuscular, Once, On [place] 01/14/25 at 0645, For 1 dose Start: 01-14-2025 End: 01-14-2025 1 mg, intravenous, Once, On Wed01/14/25 at 0248, For 1 dose hyoscyamine sulfate 0.125 mg sublingual tablet (20 sources) Start: 01-02-2025 End: 01-07-2025 Start: 01-07-2023 End: 06-27-2023 Start: 01-30-2022 take 0.125 mg by yvonne th three times daily Hyoscyamine Sulfate Active 0.125 MG PO THREE TIMES A DAY January 30, 2022 12:00am 1 ml ketorolac tromethamine 30 mg/ml injection (2 sources) Nonsteroidal Anti-inflammatory Drug, Cyclooxygenase Inhibitor Start: 01-15-2025 End: 01-15-2025 inject 15 mg by intramuscular injection once 15 mg, intramuscular, Once, On Wed01/15/25 at 1803, For 1 dose Start: 01-12-2025 End: 01-12-2025 15 mg, intravenous, Once, On Wed01/12/25 at 1008, For 1 dose lansoprazole 30 mg delayed r elease oral [...] daily w/ meals. Take 1 tablet by yvonne twice daily with meals. 2 ml metoclopramide 5 mg/ml injection (20 sources) Dopamine-2 Receptor Antagonist Start: 01-14-2025 End: 01-14-2025 10 mg, intramuscular, Once, On Wed01/14/25 at 0645, For 1 dose, Doses LESS than or equal to 10 mg can be given IV push undiluted over 1 minute Start: 06-28-2023 Start: 05-09-2023 End: 06-27-2023 Start: 01-24-2023 End: [...] mg Start: 02-01-2022 take 1 tablet by yvonne every six hours Metoclopramide Hcl (Reglan) 10 mg tablet Active 10 MG PO EVERY 6 HOURS February 01, 2022 12:00am Start: 01-26-2022 End: 01-30-2022 1 ml morphine sulfate 4 mg/ml cartridge (1 source) Opioid Agonist Start: 01-12-2025 End: 01-12-2025 4 mg, intravenous, Once, On Wed01/12/25 at 0901, For 1 dose MULTIVITAMIN ORAL (3 sources) End: 03-23-2022 MULTIVITAMIN ORAL Take by mouth. 03/23/2022 Discontinued End: 03-23-2022 MULTIVITAMIN ORAL Take by [facility]. 0 03/23/2022 Discontinued MULTIVITAMIN ORA L [...] Start: 06-06-2021 End: 02-18-2023 polyethylene glycol 3350 (KS RALAX, GLYCOLAX) 17 gram/dose powder Take 17 [...] transdermal system (20 sources) Anticholinergic Start: 01-04-2025 End: 01-07-2025 Start: 11-28-2024 End: 12-30-2024 Start: 11-28-2024 End: [...] 01, 2022 12:03am Start: 01-30-2022 End: 03-01-2022 1000 ml sodium chloride 9 mg/ml injection (4 sources) Start: 01-18-2025 End: 01-18-2025 1,000 mL, intravenous, at 2, 000 mL/hr, Administer over 30 Minutes, Once, On Wed01/18/25 at 0610, For 1 dose Start: 01-12-2025 End: 01-12-2025 1,000 mL, intravenous, at 2, 000 mL/hr, Administer over 30 Minutes, Once, On Wed01/12/25 at 0901, For 1 dose Start: 01-24-2023 End: 01-24-2023 sodium chloride 0.9 % bolus 1,000 mL sulfamethoxazole 800 mg / trimethoprim 160 mg oral tablet (20 sources) Dihydrofolate Reductase Inhibitor Antibacterial, Sulfonamide Antimicrobial Start: 02-24-2023 End: 05-04-2023 Start: 02-24-2023 End: 05-04-2023 Sulfamethoxazole-Trimethopri m (Bactrim Ds) 800-160 mg tablet Discontinued 1 {tbl} PO TWICE A DAY 22 01February 24, 2023 12:00am May 04, 2023 6:58pm [...] 01-30-2022 Start: 10-24-2021 take 1 tablet by yvonne th twice daily Sulfamethoxazole-Trimethoprim Active 1 T ABLET PO TWICE A DAY October 24, 2021 8:40am Comment on above: Take 1 tablet by yvonne th twice daily for 5 days. traMADol hydrochloride 50 mg oral tablet (13 sources) Opioid Agonist Start: 11-28-2024 End: 12-30-2024 [...] 300 mg by mouth daily at bedtime. (20 sources) Start: 12-24-2023 End: 11-25-2024 Start: 07-23-2023 End: 11-25-2024 Start: 07-23-2023 Start: 07-16-2023 End: 11-25-2024 Start: 07-16-2023 Problems Active Problems Problem Classification Problem Date Documented Da te Episodic/Chronic Abdominal pain (20 sources) Abdominal pain; Translations: [Unspecified abdominal pain] Onset: 02-11-2023 Episodic Acute and unspecified renal failure (19 sources) Acute renal failure syndrome; Translations: [Acute [...] source) Asthenia; Translations: [Weakness] Onset: 02-11-2023 Episodic Miscellaneous mental health disorders (8 sources) Suicidal behavior; Translations: [Other symptoms and signs involving emotional state] Onset: 01-08-2025 01-07-2025 Episodic Nausea and vomiting (20 sources) Nausea [...] Episodic Other disorders of stomach and duodenum (20 sources) Cyclical vomiting syndrome; Translations: [Cyclical vomiting syndrome unrelated to migraine] 12-30-2024 Episodic Other eye disorders (1 source) Pain of right eye; Translations: [Ocular pain, right eye] 07-01-2023 Episodic Other eye disorders (19 sources) Complete obstruction of lacrimal canaliculus ; Translations: [Blocked tear duct] 07-02-2023 Episodic Other gastrointestinal disorders (20 sources) Constipation; Translations: [Constipation, unspecified] Onset: 03-02-2023 11-06-2021 Episodic Other gastrointestinal disorders (2 sources) Constipation, unspecified; Translations: [Constipation, unspecified] Onset: 02-11-2023 Episodic Other injuries and conditions due to external causes (16 sources) Unspecified injury of right Achilles tendon, initial encounter; Translations: [Injury of right Achilles tendon] 12-24-2023 Episodic Other liver diseases (11 sources) Elevated liver enzymes level; Translations: [Abnormal [...] Onset: 03-01-2023 Chronic Other nervous system disorders (18 sources) Acute postoperative pain; Translations: [Other acute postprocedural pain] 07-23-2023 Episodic Other nutritional; endocrine; and metabolic disorders (8 sources) Body mass index 40+ - severely obese; Translations: [Morbid (severe) obesity due to excess calories] Onset: 06-13-2013 06-13-2013 Chronic Other nutritional; endocrine; and metabolic disorders (13 sources) Obese class I; Translations: [Obesity, unspecified] Onset: 02-18-2023 02-20-2023 Chronic Other nutritional; endocrine; and metabolic disorders (14 sources) Body mass index 30+ - obesity; [...] of pulmonary function studies] Onset: 12-28-2024 Episodic Pancreatic disorders (not diabetes) (2 sources) Acute pancreatitis; Translations: [Acute pancreatitis without necrosis or infection, unspecified] Onset: 01-12-2025 01-12-2025 Episodic Personality disorders (20 sources) Borderline personality disorder; Translations: [Borderline personality disorder] Onset: 03-02-2023 03-02-2023 Chronic Pneumonia (except that caused by tuberculosis or sexually transmitted disease) (1 source) Bronchopneumonia; Translations: [Bronchopneumonia, unspecified organism] 06-26-2024 Episodic Poisoning by other medications and drugs (6 sources) Insulin overdose; Translations: [Poisoning by insulin and oral hypoglycemic [antidiabetic] drugs, accidental (unintentional), initial encounter] 01-07-2025 Episodic Residual codes; unclassified (20 sources) Other specified health status; Translations: [Failure of outpatient treatment] 01-14-2023 Episodic Residual codes; unclassified (14 sources) Patient noncompliance - general; Translations: [General [...] today or tomorrow to set up appointment. 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 I had [...] Test Name Value Interpretation Reference Range Facility MR/PAT.ANEon 02-12-2025 MR/PAT.ANE Normal [facility] Absolute lymphocyte countOrd ered By: Fartun Carbajal on 01-31-2025 Lymphocytes Auto (Unsp spec) [#/Vol] 3.06 10*3/uL 0.83-4.51 [facility] Amylaseon 01-31-2025 ARABELLA 41 U/L Normal 28-100 [facility] Comment on above: Performed By: #### L 501.2450, L501.2400, L500.4050, L100.0100 ####[facility] [address] [place], [address] Anion gap in Serum or Plasma Ordered By: Fartun Carbajal on 01-31-2025 Anion gap [Moles/Vol] 15 mmol/L 5-15 [facility] Automated lymphocyte count a s percentage of total leukocytesOrdered By: Fartun Carbajal on 01-31-2025 Lymphocytes/100 WBC Auto (Unsp spec) 29.1 % 19-41 [facility] BUN/creatinine ratioOrdered By: Zebulun Beam on 01-31-2025 Urea nitrogen/Creatinine [Mass ratio] 17.3 mg/mg 10-20 [facility] Basophil percentageOrdered B y: Zebulun Beam on 01-31-2025 Basophils/100 WBC (Bld) 0.7 % 0-1 [facility] Bilirubin, totalOrdered By: Zebulun Beam on 01-31-2025 Bilirubin [Mass/Vol] 0.25 mg/dL 0.00-1.30 [facility] CBC W/Diff, Automatedon 01-10-2024 Absolute Lymph 3.06 X10 3/uL Normal 0.83-4.51 [facility] Comment on above: Performed By: #### L 501.2450, L501.2400, L500.4050, L100.0100 ####[facility] [address] [place], [address] Absolute Neut 6.3 X10 3/uL Normal 2.0-7.7 [facility] Comment on above: Performed By: #### L 501.2450, L501.2400, L500.4050, L100.0100 ####[facility] [address] [place], [address] Basophils/100 WBC (Bld) 0.7 % Normal 0-1 [facility] Comment on above: Performed By: #### L 501.2450, L501.2400, L500.4050, L100.0100 ####[facility] [address] [place], [address] Eosinophils/100 WBC (Bld) 1.0 % Normal 0-5 [facility] Comment on above: Performed By: #### L 501.2450, L501.2400, L500.4050, L100.0100 ####[facility] [address] [place], [address] Erythrocyte distribution width (RBC) [Ratio] 13.6 % Normal 11.6-14.6 [facility] Comment on above: Performed By: #### L 501.2450, L501.2400, L500.4050, L100.0100 ####[facility] [address] [place], [address] Hematocrit (Bld) [Volume fraction] 38.3 % Normal 37-47 [facility] Comment on above: Performed By: #### L 501.2450, L501.2400, L500.4050, L100.0100 ####[facility] [address] [place], [address] Hemoglobin (Bld) [Mass/Vol] 12.6 g/dL Normal 12.0-15.0 [facility] Comment on above: Performed By: #### L 501.2450, L501.2400, L500.4050, L100.0100 ####[facility] [address] [place], [address] IG% 0.800 Normal 0.0-0.9 [facility] Comment on above: Result Comment: IG% - Immature Granulocytes (promyelocytes, myelocytes andmetamyelocytes) > 1% indicates that a LEFT SHIFT is Present. Performed By: #### L 501.2450, L501.2400, L500.4050, L100.0100 ####[facility] [address] [place], [address] Lymphocytes/100 WBC (Bld) 29.1 % Normal 19-41 [facility] Comment on above: Performed By: #### L 501.2450, L501.2400, L500.4050, L100.0100 ####[facility] [address] [place], [address] MCH (RBC) [Entitic mass] 27.8 pg Normal 27.0-32.0 [facility] Comment on above: Performed By: #### L 501.2450, L501.2400, L500.4050, L100.0100 ####[facility] [address] [place], [address] MCHC (RBC) [Mass/Vol] 32.9 g/dL Normal 32-36 [facility] Comment on above: Performed By: #### L 501.2450, L501.2400, L500.4050, L100.0100 ####[facility] [address] [place], [address] MCV (RBC) [Entitic vol] 84.5 fL Normal 81-99 [facility] Comment on above: Performed By: #### L 501.2450, L501.2400, L500.4050, L100.0100 ####[facility] [address] [place], [address] Monocytes/100 WBC (Bld) 8.7 % Normal 0-10 [facility] Comment on above: Performed By: #### L 501.2450, L501.2400, L500.4050, L100.0100 ####[facility] [address] [place], [address] Neutrophils/100 WBC (Bld) 59.7 % Normal 47-70 [facility] Comment on above: Performed By: #### L 501.2450, L501.2400, L500.4050, L100.0100 ####[facility] [address] [place], [address] Nucleated RBC (Bld) [#/Vol] 0 10*3/uL Normal 0-5 [facility] Comment on above: Performed By: #### L 501.2450, L501.2400, L500.4050, L100.0100 ####[facility] [address] [place], [address] Platelet mean volume (Bld) [Entitic vol] 9.2 fL Normal 6.2-12.0 [facility] Comment on above: Performed By: #### L 501.2450, L501.2400, L500.4050, L100.0100 ####[facility] [address] [place], [address] Platelets (Bld) [#/Vol] 384 10*3/uL Normal 150-450 [facility] Comment on above: Performed By: #### L 501.2450, L501.2400, L500.4050, L100.0100 ####[facility] [address] [place], [address] RBC (Bld) [#/Vol] 4.53 10*6/uL Normal 4.2-5.4 [facility] Comment on above: Performed By: #### L 501.2450, L501.2400, L500.4050, L100.0100 ####[facility] [address] [place], [address] RDW SD 42.2 fl Normal 35.1-43.9 [facility] Comment on above: Performed By: #### L 501.2450, L501.2400, L500.4050, L100.0100 ####[facility] [address] [place], [address] WBC (Bld) [#/Vol] 10.5 10*3/uL Normal 4.4-11.0 [facility] Comment on above: Performed By: #### L 501.2450, L501.2400, L500.4050, L100.0100 ####[facility] [address] [place], [address] Carbon dioxide, total [Moles /volume] in Central venous bloodOrdered By: Fartun Carbajal on 01-31-2025 CO2 [Moles/Vol] 18.2 mmol/L Low 21.0-32.0 [facility] Chloride assayOrdered By: Gera Carbajal on 01-31-2025 Chloride [Moles/Vol] 101 mmol/L 98-108 [facility] Comprehensive Metabolic Prof ilon 01-31-2025 Albumin [Mass/Vol] 4.1 g/dL Normal 3.5-5.0 [facility] Comment on above: Performed By: #### L 501.2450, L501.2400, L500.4050, L100.0100 ####[facility] [address] [place], [address] Albumin/Globulin [Mass ratio] 1.1 {ratio} Normal 0.9-2.4 [facility] Comment on above: Performed By: #### L 501.2450, L501.2400, L500.4050, L100.0100 ####[facility] [address] [place], [address] ALK PHOS 101 U/L Normal 35-104 [facility] Comment on above: Performed By: #### L 501.2450, L501.2400, L500.4050, L100.0100 ####[facility] [address] [place], [address] ALT [Catalytic activity/Vol] 13 U/L Normal <=34 [facility] Comment on above: Performed By: #### L 501.2450, L501.2400, L500.4050, L100.0100 ####[facility] [address] [place], [address] AST [Catalytic activity/Vol] 21 U/L Normal <=31 [facility] Comment on above: Performed By: #### L 501.2450, L501.2400, L500.4050, L100.0100 ####[facility] [address] [place], [address] Bilirubin [Mass/Vol] 0.25 mg/dL Normal 0.00-1.30 [facility] Comment on above: Performed By: #### L 501.2450, L501.2400, L500.4050, L100.0100 ####[facility] [address] [place], [address] BUN/CRE 17.3 RATIO Normal 10-20 [facility] Comment on above: Performed By: #### L 501.2450, L501.2400, L500.4050, L100.0100 ####[facility] [address] [place], [address] Calcium [Mass/Vol] 9.4 mg/dL Normal 7.6-11.0 [facility] Comment on above: Performed By: #### L 501.2450, L501.2400, L500.4050, L100.0100 ####[facility] [address] [place], [address] Chloride [Moles/Vol] 101 mmol/L Normal 98-108 [facility] Comment on above: Performed By: #### L 501.2450, L501.2400, L500.4050, L100.0100 ####[facility] [address] [place], [address] CO2 [Moles/Vol] 18.2 mmol/L Low 21.0-32.0 [facility] Comment on above: Performed By: #### L 501.2450, L501.2400, L500.4050, L100.0100 ####[facility] [address] [place], [address] Creatinine [Mass/Vol] 0.94 mg/dL Normal 0.70-1.20 [facility] Comment on above: Performed By: #### L 501.2450, L501.2400, L500.4050, L100.0100 ####[facility] [address] [place], [address] GAP 15 Normal 5-15 [facility] Comment on above: Performed By: #### L 501.2450, L501.2400, L500.4050, L100.0100 ####[facility] [address] [place], [address] GFR/1.73 sq M.predicted among non-blacks MDRD (S/P/Bld) [Vol rate/Area] 83 mL/min/{1.73_m2} Normal >60 [facility] Comment on above: Result Comment: mL/m in/1.73m2 CKD-EPI Creatinine Equation (2020) Performed By: #### L 501.2450, L501.2400, L500.4050, L100.0100 ####[facility] [address] [place], [address] Globulin (S) [Mass/Vol] 3.9 g/dL Normal 2.2-4.2 [facility] Comment on above: Performed By: #### L 501.2450, L501.2400, L500.4050, L100.0100 ####[facility] [address] [place], [address] Glucose [Mass/Vol] 205 mg/dL High 70-99 [facility] Comment on above: Performed By: #### L 501.2450, L501.2400, L500.4050, L100.0100 ####[facility] [address] [place], [address] Potassium [Moles/Vol] 4.3 mmol/L Normal 3.3-5.1 [facility] Comment on above: Performed By: #### L 501.2450, L501.2400, L500.4050, L100.0100 ####[facility] [address] [place], [address] Sodium [Moles/Vol] 134 mmol/L Normal 133-145 [facility] Comment on above: Performed By: #### L 501.2450, L501.2400, L500.4050, L100.0100 ####[facility] [address] [place], [address] T PROT 8.0 g/dL Normal 5.9-8.4 [facility] Comment on above: Performed By: #### L 501.2450, L501.2400, L500.4050, L100.0100 ####[facility] [address] [place], [address] Urea nitrogen [Mass/Vol] 16 mg/dL Normal 4-19 [facility] Comment on above: Performed By: #### L 501.2450, L501.2400, L500.4050, L100.0100 ####[facility] [address] [place], [address] Eosinophil percentageOrdered By: Fartun Carbajal on 01-31-2025 Eosinophils/100 WBC (Bld) 1.0 % 0-5 [facility] Erythrocyte distribution wid th ratioOrdered By: [facility] Beam on 01-31-2025 Erythrocyte distribution width (RBC) [Ratio] 13.6 % 11.6-14.6 [facility] Erythrocyte distribution wid th standard deviationOrdered By: [facility] Beam on 01-31-2025 Erythrocyte distribution width (RBC) [Ratio] 42.2 fl 35.1-43.9 [facility] Glomerular filtration rate ( GFR) estimation/1.73 sq m using serum, plasma, or whole bOrdered By: Fartun Carbajal on 01-31-2025 GFR/1.73 sq M.predicted among non-blacks MDRD (S/P/Bld) [Vol rate/Area] 83 mL/min/{1.73_m2} >60 [facility] Hematocrit Auto (Bld) [Volum e fraction]Ordered By: Fartun Carbajal on 01-31-2025 Hematocrit (Bld) [Volume fraction] 38.3 % 37-47 [facility] Hemoglobin measurementOrdere d By: Fartun Carbajal on 01-31-2025 Hemoglobin (Bld) [Mass/Vol] 12.6 g/dL 12.0-15.0 [facility] Immature granulocytes/100 WB C Auto (Bld)Ordered By: Zebulun Beam on 01-31-2025 Immature granulocytes/100 WBC (Bld) 0.800 % 0.0-0.9 [facility] Lipaseon 01-31-2025 Lipase [Catalytic activity/Vol] 54 U/L Normal 13-75 [facility] Comment on above: Result Comment: Adam faulkner note:LIPASE revised reference range effective 22.New Lipase methodology. Expected to produce lower valuesthan the previous assay method.NEW Reference Range: 13 - 75 U/L Performed By: #### L 501.2450, L501.2400, L500.4050, L100.0100 ####[facility] [address] [place], [address] MCV (mean corpuscular volume ) determinationOrdered By: Zebulun Beam on 01-31-2025 MCV (RBC) [Entitic vol] 84.5 fL 81-99 [facility] Mean corpuscular hemoglobin (MCH) determinationOrdered By: Zebulun Beam on 01-31-2025 MCH (RBC) [Entitic mass] 27.8 pg 27.0-32.0 [facility] Monocyte percentageOrdered B y: Zebulun Beam on 01-31-2025 Monocytes/100 WBC (Bld) 8.7 % 0-10 [facility] Neutrophil percentageOrdered By: Zebulun Beam on 01-31-2025 Neutrophils/100 WBC (Bld) 59.7 % 47-70 [facility] No Panel InformationOrdered By: Zebulun Beam on 01-31-2025 21 U/L <32 [facility] Platelet countOrdered By: Gera workmanun Solomon on 01-31-2025 Platelets (Bld) [#/Vol] 384 10*3/uL 150-450 [facility] Potassium measurement (mass/ volume)Ordered By: Jannylun Beam on 01-31-2025 Potassium (Unsp spec) [Mass/Vol] 4.3 mmol/L 3.3-5.1 [facility] RBC Auto (Bld) [#/Vol]Ordere d By: Fartun Carbajal on 01-31-2025 RBC (Bld) [#/Vol] 4.53 10*6/uL 4.2-5.4 [facility] Serum creatinine measurement (mass/volume)Ordered By: Fartun Carbajal on 01-31-2025 Creatinine [Mass/Vol] 0.94 mg/dL 0.70-1.20 [facility] Serum globulin measurementOr dered By: Fartun Carbajal on 01-31-2025 Globulin (S) [Mass/Vol] 3.9 g/dL 2.2-4.2 [facility] Serum glucose measurement (m ass/volume)Ordered By: Fartun Carbajal on 01-31-2025 Glucose [Mass/Vol] 205 mg/dL High 70-99 [facility] Serum or plasma alanine jordan otransferase (ALT) measurementOrdered By: Fartun Carbajal on 01-31-2025 ALT [Catalytic activity/Vol] 13 U/L <35 [facility] Serum or plasma albumin hussein urement (mass/volume)Ordered By: Fartun Carbajal on 01-31-2025 Albumin [Mass/Vol] 4.1 g/dL 3.5-5.0 [facility] Serum or plasma albumin/glob ulin mass ratioOrdered By: Fartun Carbajal on 01-31-2025 Albumin/Globulin [Mass ratio] 1.1 {ratio} 0.9-2.4 [facility] Serum or plasma alkaline bradley sphatase measurementOrdered By: Fartun Carbajal on 01-31-2025 ALP [Catalytic activity/Vol] 101 U/L 35-104 [facility] Serum or plasma amylase hussein urement (enzymatic activity/volume)Ordered By: Fartun Carbajal on 01-31-2025 Amylase [Catalytic activity/Vol] 41 U/L 28-100 [facility] Serum or plasma calcium hussein urement (mass/volume)Ordered By: Fartun Carbajal on 01-31-2025 Calcium [Mass/Vol] 9.4 mg/dL 7.6-11.0 [facility] Serum or plasma urea nitroge n measurement (mass/volume)Ordered By: Jakobn Solomon on 01-31-2025 Urea nitrogen [Mass/Vol] 16 mg/dL 4-19 [facility] Sodium levelOrdered By: Gerabrandy ang Beam on 01-31-2025 Sodium [Moles/Vol] 134 mmol/L 133-145 [facility] Total proteinOrdered By: Mukesh flavia Beam on 01-31-2025 Protein [Mass/Vol] 8.0 g/dL 5.9-8.4 [facility] White blood cell (WBC) count Ordered By: Fartun Beam on 01-31-2025 WBC (Bld) [#/Vol] 10.5 10*3/uL 4.4-11.0 [facility] Basic metabolic 2000 panelon 01-18-2025 Anion gap [Moles/Vol] 13 mmol/L 6 - 18 [facility] Calcium [Mass/Vol] 9.1 mg/dL 8.9 - 10. 3 mg/dL [facility] Chloride [Moles/Vol] 99 mmol/L 98 - 10 7 mmol/L [facility] CO2 [Moles/Vol] 22 mmol/L 22 - 32 mmol/L [facility] Creatinine [Mass/Vol] 0.91 mg/dL 0.60 - 1.30 mg/dL [facility] GFR/1.73 sq M.predicted among non-blacks MDRD (S/P/Bld) [Vol rate/Area] 86 mL/min/{1.73_m2} - [facility] Comment on above: Calculation based on the Chronic Kidney Disease Epidemiology Collaboration (CKD-EPI) equation refit without adjustment for race. Glucose [Mass/Vol] 218 mg/dL High 70 - 99 mg/dL [facility] Potassium [Moles/Vol] 4.1 mmol/L 3.6 - 5.1 mmol/L [facility] Sodium [Moles/Vol] 134 mmol/L Low 136 - 145 mmol/L [facility] Urea nitrogen [Mass/Vol] 22 mg/dL High 8 - 20 mg/dL [facility] Urea nitrogen/Creatinine [Mass ratio] 24.2 mg/mg High 12.0 - 20.0 [facility] Lipase [Catalytic activity/Vol] 41 U/L Normal 11-82 [facility] Comment on above: Performed By: #### 6 9742-5 #### [facility] [address] [place] [address] CBC W Differential panel, me thod unspecified (Bld)on 01-18-2025 Basophils (Bld) [#/Vol] 0.06 10*3/uL [facility] Basophils/100 WBC (Bld) 0.6 % 0.0 - 2.0 % [facility] Eosinophils (Bld) [#/Vol] 0.02 10*3/uL [facility] Eosinophils/100 WBC (Bld) 0.2 % 0.0 - 7.0 % [facility] Erythrocyte distribution width (RBC) [Ratio] 14.2 % 11.0 - 14.8 % [facility] Hematocrit (Bld) [Volume fraction] 36.9 % 34.3 - 47.9 % [facility] Hemoglobin (Bld) [Mass/Vol] 12.3 g/dL 12.0 - 16.0 g/dL [facility] Immature granulocytes (Bld) [#/Vol] 0.09 10*3/uL [facility] Immature granulocytes/100 WBC (Bld) 0.8 % 0.0 - 1.2 % [facility] Interpretation and review of laboratory results Abnormal [facility] Lymphocytes (Bld) [#/Vol] 2.17 10*3/uL [facility] Lymphocytes/100 WBC (Bld) 20.2 % 17.9 - 49.6 % [facility] MCH (RBC) [Entitic mass] 27.6 pg [facility] MCHC (RBC) [Mass/Vol] 33.3 g/dL 30.8 - 35.3 g/dL [facility] MCV (RBC) [Entitic vol] 82.7 fL [facility] Monocytes (Bld) [#/Vol] 0.71 10*3/uL [facility] Monocytes/100 WBC (Bld) 6.6 % 0.0 - 12.0 % [facility] Neutrophils (Bld) [#/Vol] 7.68 10*3/uL [facility] Neutrophils/100 WBC (Bld) 71.6 % 38.1 - 75.5 % [facility] Platelet mean volume (Bld) [Entitic vol] 9.4 fL [facility] Platelets (Bld) [#/Vol] 393 10*3/uL [facility] RBC (Bld) [#/Vol] 4.46 10*6/uL [facility] WBC (Bld) [#/Vol] 10.7 10*3/uL High [facility] Basophils (Bld) [#/Vol] 0.06 10*3/uL Normal 0.00-0.20 [facility] Comment on above: Performed By: #### 6 9742-5 #### [facility] [address] [place] [address] Basophils/100 WBC (Bld) 0.6 % Normal 0.0-2.0 [facility] Comment on above: Performed By: #### 6 9742-5 #### [facility] [address] [place] [address] Eosinophils (Bld) [#/Vol] 0.02 10*3/uL Normal 0.00-0.70 [facility] Comment on above: Performed By: #### 6 9742-5 #### [facility] [address] [place] [address] Eosinophils/100 WBC (Bld) 0.2 % Normal 0.0-7.0 [facility] Comment on above: Performed By: #### 6 9742-5 #### [facility] [address] [place] [address] Erythrocyte distribution width (RBC) [Ratio] 14.2 % Normal 11.0-14.8 [facility] Comment on above: Performed By: #### 6 9742-5 #### [facility] [address] [place] [address] Hematocrit (Bld) [Volume fraction] 36.9 % Normal 34.3-47.9 [facility] Comment on above: Performed By: #### 6 9742-5 #### [facility] [address] [place] [address] Hemoglobin (Bld) [Mass/Vol] 12.3 g/dL Normal 12.0-16.0 [facility] Comment on above: Performed By: #### 6 9742-5 #### [facility] [address] [place] [address] Immature granulocytes (Bld) [#/Vol] 0.09 10*3/uL Normal 0.00-0.10 [facility] Comment on above: Performed By: #### 6 9742-5 #### [facility] [address] [place] [address] Immature granulocytes/100 WBC (Bld) 0.8 % Normal 0.0-1.2 [facility] Comment on above: Performed By: #### 6 9742-5 #### [facility] [address] [place] [address] Lymphocytes (Bld) [#/Vol] 2.17 10*3/uL Normal 1.00-4.80 [facility] Comment on above: Performed By: #### 6 9742-5 #### [facility] [address] [place] [address] Lymphocytes/100 WBC (Bld) 20.2 % Normal 17.9-49.6 [facility] Comment on above: Performed By: #### 6 9742-5 #### [facility] [address] [place] [address] MCH 27.6 pcg Normal 27.0-34.0 [facility] Comment on above: Performed By: #### 6 9742-5 #### [facility] [address] [place] [address] MCHC (RBC) [Mass/Vol] 33.3 g/dL Normal 30.8-35.3 [facility] Comment on above: Performed By: #### 6 9742-5 #### [facility] [address] [place] [address] MCV (RBC) [Entitic vol] 82.7 fL Normal 80.0-97.0 M [facility] Comment on above: Performed By: #### 6 9742-5 #### [facility] [address] [place] [address] Monocytes (Bld) [#/Vol] 0.71 10*3/uL Normal 0.00-0.90 [facility] Comment on above: Performed By: #### 6 9742-5 #### [facility] [address] [place] [address] Monocytes/100 WBC (Bld) 6.6 % Normal 0.0-12.0 [facility] Comment on above: Performed By: #### 6 9742-5 #### [facility] [address] [place] [address] Neutrophils Absolute 7.68 K/mcL Normal 1.80-7.[address] [facility] Comment on above: Performed By: #### 6 9742-5 #### [facility] [address] [place] [address] Neutrophils/100 WBC (Bld) 71.6 % Normal 38.1-75.5 [facility] Comment on above: Performed By: #### 6 9742-5 #### [facility] [address] [place] [address] Platelet mean volume (Bld) [Entitic vol] 9.4 fL Normal 6.2-12.1 [facility] Comment on above: Performed By: #### 6 9742-5 #### [facility] [address] [place] [address] Platelets (Bld) [#/Vol] 393 10*3/uL Normal 142-424 [facility] Comment on above: Performed By: #### 6 9742-5 #### [facility] [address] [place] [address] RBC (Bld) [#/Vol] 4.46 10*6/uL Normal 3.74-5.34 [facility] Comment on above: Performed By: #### 6 9742-5 #### [facility] [address] [place] [place] [address] WBC (Bld) [#/Vol] 10.7 10*3/uL High 4.6-10.2 [facility] Comment on above: Performed By: #### 6 9742-5 #### [facility] [address] [place] [address] Alfaro urine culture tubeon Specimen source Nom (Unsp spec) Hold for add-ons. [employer] Comment on above: Auto resulted. [facility] HCG ( test) Ql (U)O rdered By: Vandana Stoner on 01-18-2025 Interpretation and review of laboratory results Normal [facility] HCG ( test) Ql (U)o n 01-18-2025 Preg Test, Ur Negative Normal Negative [facility] Comment on above: Performed By: #### 2 106-3 #### [facility] [address] [place] [address] 47684 HCG qualitative, urineOrdere d By: Vandana Stoner on 01-18-2025 HCG ( test) Ql (U) Negative Negative [employer] Hepatic function 2000 panelo n 01-18-2025 Albumin [Mass/Vol] 4.3 g/dL 3.5 - 4.8 g/dL [facility] ALP [Catalytic activity/Vol] 72 U/L [facility] ALT [Catalytic activity/Vol] 13 U/L [facility] AST [Catalytic activity/Vol] 12 U/L Low [facility] Bilirubin [Mass/Vol] 0.6 mg/dL 0.3 - 1 .2 mg/dL [facility] Bilirubin.direct [Mass/Vol] 0.1 mg/dL NINF - 0.5 mg/dL [facility] Bilirubin.indirect [Mass/Vol] 0.5 mg/dL 0.0 - 1.0 mg/dL [facility] Protein [Mass/Vol] 7.4 g/dL 6.1 - 7.9 g/dL [facility] Lipaseon 01-18-2025 Lipase [Catalytic activity/Vol] 41 U/L [facility] Lipase [Catalytic activity/V ol]on 01-18-2025 Interpretation and review of laboratory results Normal [facility] No Panel Informationon 01-18 Interpretation and review of laboratory results Abnormal [facility] Nuclear IgG IA Ql (S)on 01-09 Bilirubin Ql (U) Negative Negative mg/dL [facility] Clarity (U) Clear Clear [facility] Color (U) Light Yellow Abnormal Yellow [facility] Epithelial cells.squamous LM.HPF (Urine sed) [#/Area] Occasional Abnormal None /LPF [facility] Glucose Ql (U) 100 mg/dL Abnormal Normal [facility] Hemoglobin Ql (U) Negative Negative, Trace [facility] Interpretation and review of laboratory results Abnormal [facility] Ketones (U) [Mass/Vol] Negative Negat jim mg/dL [facility] Leukocyte esterase Test strip Ql (U) Negative Negative WBCs/mcL [facility] Mucus Ql (Urine sed) Rare Abnormal None /LPF [employer] [facility] Nitrite Ql (U) Negative Negative [facility] pH (U) 6.5 [pH] 5.0 - 8.0 pH [facility] Protein (U) [Mass/Vol] Negative Negat jim mg/dL [facility] RBC LM.HPF (Urine sed) [#/Area] 1 /[HPF] [facility] Specific gravity (U) [Rel density] 1.022 1.002 - 1.030 [facility] Urobilinogen (U) [Mass/Vol] Normal Normal mg/dL [facility] WBC LM.HPF (Urine sed) [#/Area] 2 /[HPF] [facility] Bilirubin, Urine Negative Normal Negative [facility] Comment on above: Performed By: #### 2 9950-3 #### [facility] [address] [place] [address]642 Blood, Urine Negative Normal Negative, Trace [facility] Comment on above: Performed By: #### 2 9950-3 #### [facility] [address] [place] [address] Clarity (U) Clear Normal Clear [facility] Comment on above: Performed By: #### 2 9950-3 #### [facility] [address] [place] [address] Color (U) Light Yellow Abnormal Yellow [facility] Comment on above: Performed By: #### 2 9950-3 #### [facility] [address] [place] [address] Glucose Ql (U) 100 mg/dL Abnormal Normal [facility] Comment on above: Performed By: #### 2 9950-3 #### [facility] [address] [place] [address] Ketones Ql (U) Negative Normal Negative [facility] Comment on above: Performed By: #### 2 9950-3 #### [facility] [address] [place] [address] Leukocytes, Urine Negative Normal Negative [facility] Comment on above: Performed By: #### 2 9950-3 #### [facility] [address] [place] [address] Mucus, UA Rare Abnormal None [facility] Comment on above: Performed By: #### 2 9950-3 #### [facility] [address] [place] [address] Nitrite, Urine Negative Normal Negative [facility] Comment on above: Performed By: #### 2 9950-3 #### [facility] [address] [place] [address] pH (U) 6.5 [pH] Normal 5.0-8.0 [facility] Comment on above: Performed By: #### 2 9950-3 #### [facility] [address] [place] [address] Protein, Urine Negative Normal Negative [facility] Comment on above: Performed By: #### 2 9950-3 #### [facility] [address] [place] [address] RBC LM.HPF (Urine sed) [#/Area] 1 /[HPF] Normal 0-5 [facility] Comment on above: Performed By: #### 2 9950-3 #### [facility] [address] [place] [address] Specific [place] Urine 1.022 Normal 1.002-1.030 M [facility] Comment on above: Performed By: #### 2 9950-3 #### [facility] [address] [place] [address] Squamous Epithelial, Urine Occasional Abnormal None [facility] Comment on above: Performed By: #### 2 9950-3 #### [facility] [address] [place] [address]373 Urobilinogen, Urine Normal Normal Normal [facility] Comment on above: Performed By: #### 2 9950-3 #### [facility] [address] [place] [address] 38330 WBC LM.HPF (Urine sed) [#/Area] 2 /[HPF] Normal 0-5 [facility] Comment on above: Performed By: #### 2 9950-3 #### [facility] [address] [place] [address] 24958 Basic metabolic 2000 panelon 01-15-2025 Anion gap [Moles/Vol] 8 mmol/L 6 - 18 [facility] Calcium [Mass/Vol] 9.4 mg/dL 8.9 - 10. 3 mg/dL [facility] Chloride [Moles/Vol] 99 mmol/L 98 - 10 7 mmol/L [facility] CO2 [Moles/Vol] 28 mmol/L 22 - 32 mmol/L [facility] Creatinine [Mass/Vol] 1.01 mg/dL 0.60 - 1.30 mg/dL [facility] GFR/1.73 sq M.predicted among non-blacks MDRD (S/P/Bld) [Vol rate/Area] 76 mL/min/{1.73_m2} - PINF [facility] Comment on above: Calculation based on the Chronic Kidney Disease Epidemiology Collaboration (CKD-EPI) equation refit without adjustment for race. Glucose [Mass/Vol] 179 mg/dL High 70 - 99 mg/dL [facility] Potassium [Moles/Vol] 5 mmol/L 3.6 - 5.1 mmol/L [facility] Sodium [Moles/Vol] 135 mmol/L Low 136 - 145 mmol/L [facility] Urea nitrogen [Mass/Vol] 20 mg/dL 8 - 20 mg/dL [facility] Urea nitrogen/Creatinine [Mass ratio] 19.8 mg/mg 12.0 - 20.0 [facility] Albumin [Mass/Vol] 4.5 g/dL Normal 3.5-4.8 [facility] Comment on above: Performed By: #### 6 9742-5 #### [facility] [address] [place] [address] ALP [Catalytic activity/Vol] 71 U/L Normal 32-91 [facility] Comment on above: Performed By: #### 6 9742-5 #### [facility] [address] [place] [address] ALT [Catalytic activity/Vol] 17 U/L Normal 7-52 [facility] Comment on above: Performed By: #### 6 9742-5 #### [facility] [address] [place] [address] AST [Catalytic activity/Vol] 11 U/L Low 15-41 [facility] Comment on above: Performed By: #### 6 9742-5 #### [facility] [address] [place] [address] Bilirubin [Mass/Vol] 0.4 mg/dL Normal 0.3-1.2 [facility] Comment on above: Performed By: #### 6 9742-5 #### [facility] [address] [place] [address] Bilirubin, Indirect Normal [facility] Comment on above: Result Comment: Unab le to calculate Indirect Bilirubin. Performed By: #### 6 9742-5 #### [facility] [address] [place] [address] Bilirubin.indirect [Mass/Vol] mg/dL Normal <=0.5 [facility] Comment on above: Performed By: #### 6 9742-5 #### [facility] [address] [place] [address] Protein [Mass/Vol] 7.5 g/dL Normal 6.1-7.9 [facility] Comment on above: Performed By: #### 6 9742-5 #### [facility] [address] [place] [address] CBC W Differential panel, sd thod unspecified (Bld)on 01-15-2025 Basophils (Bld) [#/Vol] 0.07 10*3/uL [facility] Basophils/100 WBC (Bld) 0.5 % 0.0 - 2.0 % [facility] Eosinophils (Bld) [#/Vol] 0.01 10*3/uL [facility] Eosinophils/100 WBC (Bld) 0.1 % 0.0 - 7.0 % [facility] Erythrocyte distribution width (RBC) [Ratio] 14.4 % 11.0 - 14.8 % [facility] Hematocrit (Bld) [Volume fraction] 38.2 % 34.3 - 47.9 % [facility] Hemoglobin (Bld) [Mass/Vol] 12.6 g/dL 12.0 - 16.0 g/dL [facility] Immature granulocytes (Bld) [#/Vol] 0.12 10*3/uL High [facility] Immature granulocytes/100 WBC (Bld) 0.9 % 0.0 - 1.2 % [facility] Interpretation and review of laboratory results Abnormal [facility] Lymphocytes (Bld) [#/Vol] 4.19 10*3/uL [facility] Lymphocytes/100 WBC (Bld) 32.4 % 17.9 - 49.6 % [facility] MCH (RBC) [Entitic mass] 27.7 pg [facility] MCHC (RBC) [Mass/Vol] 33 g/dL 30.8 - 35.3 g/dL [facility] MCV (RBC) [Entitic vol] 84 fL [facility] Monocytes (Bld) [#/Vol] 0.81 10*3/uL [facility] Monocytes/100 WBC (Bld) 6.3 % 0.0 - 12.0 % [facility] Neutrophils (Bld) [#/Vol] 7.75 10*3/uL High [facility] Neutrophils/100 WBC (Bld) 59.8 % 38.1 - 75.5 % [facility] Platelet mean volume (Bld) [Entitic vol] 9.7 fL [facility] Platelets (Bld) [#/Vol] 434 10*3/uL High [facility] RBC (Bld) [#/Vol] 4.55 10*6/uL [facility] WBC (Bld) [#/Vol] 13 10*3/uL High [facility] Basophils (Bld) [#/Vol] 0.07 10*3/uL Normal 0.00-0.20 [facility] Comment on above: Performed By: #### 6 9742-5 #### [facility] [address] [place] [address] Basophils/100 WBC (Bld) 0.5 % Normal 0.0-2.0 [facility] Comment on above: Performed By: #### 6 9742-5 #### [facility] [address] [place] [address] Eosinophils (Bld) [#/Vol] 0.01 10*3/uL Normal 0.00-0.70 [facility] Comment on above: Performed By: #### 6 9742-5 #### [facility] [address] [place] [address] Eosinophils/100 WBC (Bld) 0.1 % Normal 0.0-7.0 [facility] Comment on above: Performed By: #### 6 9742-5 #### [facility] [address] [place] [address]38 Erythrocyte distribution width (RBC) [Ratio] 14.4 % Normal 11.0-14.8 [facility] Comment on above: Performed By: #### 6 9742-5 #### [facility] [address] [place] [address] 11578 Hematocrit (Bld) [Volume fraction] 38.2 % Normal 34.3-47.9 [facility] Comment on above: Performed By: #### 6 9742-5 #### [facility] [address] [place] [address] 35157 Hemoglobin (Bld) [Mass/Vol] 12.6 g/dL Normal 12.0-16.0 [facility] Comment on above: Performed By: #### 6 9742-5 #### [facility] [address] [place] [address] 81739 Immature granulocytes (Bld) [#/Vol] 0.12 10*3/uL High 0.00-0.10 [facility] Comment on above: Performed By: #### 6 9742-5 #### [facility] [address] [place] [address] 12598 Immature granulocytes/100 WBC (Bld) 0.9 % Normal 0.0-1.2 [facility] Comment on above: Performed By: #### 6 9742-5 #### [facility] [address] [place] [address]33[address] Lymphocytes (Bld) [#/Vol] 4.19 10*3/uL Normal 1.00-4.80 [facility] Comment on above: Performed By: #### 6 9742-5 #### [facility] [address] [place] [address]364 Lymphocytes/100 WBC (Bld) 32.4 % Normal 17.9-49.6 [facility] Comment on above: Performed By: #### 6 9742-5 #### [facility] [address] [place] [address] MCH 27.7 pcg Normal 27.0-34.0 [facility] Comment on above: Performed By: #### 6 9742-5 #### [facility] [address] [place] [address] MCHC (RBC) [Mass/Vol] 33.0 g/dL Normal 30.8-35.3 [facility] Comment on above: Performed By: #### 6 9742-5 #### [facility] [address] [place] [address] 62482 MCV (RBC) [Entitic vol] 84.0 fL Normal 80.0-97.0 M [facility] Comment on above: Performed By: #### 6 9742-5 #### [facility] [address] [place] [address]3557 Monocytes (Bld) [#/Vol] 0.81 10*3/uL Normal 0.00-0.90 [facility] Comment on above: Performed By: #### 6 9742-5 #### [facility] [address] [place] [address]251 Monocytes/100 WBC (Bld) 6.3 % Normal 0.0-12.0 M [facility] Comment on above: Performed By: #### 6 9742-5 #### [facility] [address] [place] [address] 24032 Neutrophils Absolute 7.75 K/mcL High 1.80-7.70 [facility]oun [facility] Comment on above: Performed By: #### 6 9742-5 #### [facility] [address] [place] [address] Neutrophils/100 WBC (Bld) 59.8 % Normal 38.1-75.5 [facility] Comment on above: Performed By: #### 6 9742-5 #### [facility] [address] [place] [address] Platelet mean volume (Bld) [Entitic vol] 9.7 fL Normal 6.2-12.1 [facility] Comment on above: Performed By: #### 6 9742-5 #### [facility] [address] [place] [address] Platelets (Bld) [#/Vol] 434 10*3/uL High 142-424 [facility] Comment on above: Performed By: #### 6 9742-5 #### [facility] [address] [place] [address] 68748 RBC (Bld) [#/Vol] 4.55 10*6/uL Normal 3.74-5.34 [facility] Comment on above: Performed By: #### 6 9742-5 #### [facility] [address] [place] [address]15 WBC (Bld) [#/Vol] 13.0 10*3/uL High 4.6-10.2 [facility] Comment on above: Performed By: #### 6 9742-5 #### [facility] [address] [place] [address] Hepatic function 2000 panelo n 01-15-2025 Albumin [Mass/Vol] 4.5 g/dL 3.5 - 4.8 g/dL [facility] ALP [Catalytic activity/Vol] 71 U/L [facility] ALT [Catalytic activity/Vol] 17 U/L [facility] AST [Catalytic activity/Vol] 11 U/L Low [facility] Bilirubin [Mass/Vol] 0.4 mg/dL 0.3 - 1 .2 mg/dL [facility] Bilirubin.direct [Mass/Vol] mg/dL NINF - 0.5 mg/dL [facility] Bilirubin.indirect [Mass/Vol] [facility] Comment on above: Unable to calculate Indirect Bilirubin. Protein [Mass/Vol] 7.5 g/dL 6.1 - 7.9 g/dL [facility] Lipaseon 01-15-2025 Lipase [Catalytic activity/Vol] 38 U/L [facility] Lipase [Catalytic activity/V ol]on 01-15-2025 Interpretation and review of laboratory results Normal [facility] No Panel Informationon 01-15 Interpretation and review of laboratory results Abnormal [facility] Basic metabolic 2000 panelon 01-14-2025 Anion gap [Moles/Vol] 12 mmol/L 6 - 18 [facility] Calcium [Mass/Vol] 9.1 mg/dL 8.9 - 10. 3 mg/dL [facility] Chloride [Moles/Vol] 99 mmol/L 98 - 10 7 mmol/L [facility] CO2 [Moles/Vol] 22 mmol/L 22 - 32 mmol/L [facility] Creatinine [Mass/Vol] 0.94 mg/dL 0.60 - 1.30 mg/dL [facility] GFR/1.73 sq M.predicted among non-blacks MDRD (S/P/Bld) [Vol rate/Area] 83 mL/min/{1.73_m2} - PINF [facility] Comment on above: Calculation based on the Chronic Kidney Disease Epidemiology Collaboration (CKD-EPI) equation refit without adjustment for race. Glucose [Mass/Vol] 278 mg/dL High 70 - 99 mg/dL [facility] Potassium [Moles/Vol] 4.9 mmol/L 3.6 - 5.1 mmol/L [facility] Sodium [Moles/Vol] 133 mmol/L Low 136 - 145 mmol/L [facility] Urea nitrogen [Mass/Vol] 21 mg/dL High 8 - 20 mg/dL [facility] Urea nitrogen/Creatinine [Mass ratio] 22.3 mg/mg High 12.0 - 20.0 [facility] hCG Qual Negative Normal Negative [facility] Comment on above: Performed By: #### 2 4321-2 #### [facility] [address] [place] [address] [place] [address] Beta HCG ( test) Ql on 01-14-2025 HCG ( test) Ql Negative Negative [employer] Interpretation and review of laboratory results Normal [facility] CBC W Differential panel, me thod unspecified (Bld)on 01-14-2025 Basophils (Bld) [#/Vol] 0.05 10*3/uL [facility] Basophils/100 WBC (Bld) 0.3 % 0.0 - 2.0 % [facility] Eosinophils (Bld) [#/Vol] 0.01 10*3/uL [facility] Eosinophils/100 WBC (Bld) 0.1 % 0.0 - 7.0 % [facility] Erythrocyte distribution width (RBC) [Ratio] 14.4 % 11.0 - 14.8 % [facility] Hematocrit (Bld) [Volume fraction] 37.8 % 34.3 - 47.9 % [facility] Hemoglobin (Bld) [Mass/Vol] 12.5 g/dL 12.0 - 16.0 g/dL [facility] Immature granulocytes (Bld) [#/Vol] 0.14 10*3/uL High [facility] Immature granulocytes/100 WBC (Bld) 0.9 % 0.0 - 1.2 % [facility] Interpretation and review of laboratory results Abnormal [facility] Lymphocytes (Bld) [#/Vol] 4.28 10*3/uL [facility] Lymphocytes/100 WBC (Bld) 28.5 % 17.9 - 49.6 % [facility] MCH (RBC) [Entitic mass] 27.7 pg [facility] MCHC (RBC) [Mass/Vol] 33.1 g/dL 30.8 - 35.3 g/dL [facility] MCV (RBC) [Entitic vol] 83.6 fL T [facility] Monocytes (Bld) [#/Vol] 0.73 10*3/uL [facility] Monocytes/100 WBC (Bld) 4.9 % 0.0 - 12.0 % [facility] Neutrophils (Bld) [#/Vol] 9.8 10*3/uL High [facility] Neutrophils/100 WBC (Bld) 65.3 % 38.1 - 75.5 % [facility] Platelet mean volume (Bld) [Entitic vol] 9.9 fL [facility] Platelets (Bld) [#/Vol] 453 10*3/uL High [facility] RBC (Bld) [#/Vol] 4.52 10*6/uL [facility] WBC (Bld) [#/Vol] 15 10*3/uL High [facility] Basophils (Bld) [#/Vol] 0.05 10*3/uL Normal 0.00-0.20 [facility] Comment on above: Performed By: #### 6 9742-5 #### [facility] [address] [place] [address] Basophils/100 WBC (Bld) 0.3 % Normal 0.0-2.0 [facility] Comment on above: Performed By: #### 6 9742-5 #### [facility] [address] [place] [address]71 Eosinophils (Bld) [#/Vol] 0.01 10*3/uL Normal 0.00-0.70 [facility] Comment on above: Performed By: #### 6 9742-5 #### [facility] [address] [place] [address]27 Eosinophils/100 WBC (Bld) 0.1 % Normal 0.0-7.0 [facility] Comment on above: Performed By: #### 6 9742-5 #### [facility] [address] [place] [address] 27528 Erythrocyte distribution width (RBC) [Ratio] 14.4 % Normal 11.0-14.8 [facility] Comment on above: Performed By: #### 6 9742-5 #### [facility] [address] [place] [address] Hematocrit (Bld) [Volume fraction] 37.8 % Normal 34.3-47.9 [facility] Comment on above: Performed By: #### 6 9742-5 #### [facility] [address] [place] [address] Hemoglobin (Bld) [Mass/Vol] 12.5 g/dL Normal 12.0-16.0 [facility] Comment on above: Performed By: #### 6 9742-5 #### [facility] [address] [place] [address] Immature granulocytes (Bld) [#/Vol] 0.14 10*3/uL High 0.00-0.10 [facility] Comment on above: Performed By: #### 6 9742-5 #### [facility] [address] [place] [address] Immature granulocytes/100 WBC (Bld) 0.9 % Normal 0.0-1.2 [facility] Comment on above: Performed By: #### 6 9742-5 #### [facility] [address] [place] [address] Lymphocytes (Bld) [#/Vol] 4.28 10*3/uL Normal 1.00-4.80 [facility] Comment on above: Performed By: #### 6 9742-5 #### [facility] [address] [place] [address]45[address] Lymphocytes/100 WBC (Bld) 28.5 % Normal 17.9-49.6 [facility] Comment on above: Performed By: #### 6 9742-5 #### [facility] [address] [place] [address] MCH 27.7 pcg Normal 27.0-34.0 [facility] Comment on above: Performed By: #### 6 9742-5 #### [facility] [address] [place] [address] 71669 MCHC (RBC) [Mass/Vol] 33.1 g/dL Normal 30.8-35.3 [facility] Comment on above: Performed By: #### 6 9742-5 #### [facility] [address] [place] [address] 65974 MCV (RBC) [Entitic vol] 83.6 fL Normal 80.0-97.0 M [facility] Comment on above: Performed By: #### 6 9742-5 #### [facility] [address] [place] [address] Monocytes (Bld) [#/Vol] 0.73 10*3/uL Normal 0.00-0.90 [facility] Comment on above: Performed By: #### 6 9742-5 #### [facility] [address] [place] [address] Monocytes/100 WBC (Bld) 4.9 % Normal 0.0-12.0 [facility] Comment on above: Performed By: #### 6 9742-5 #### [facility] [address] [place] [address] Neutrophils Absolute 9.80 K/mcL High 1.80-7.70 [facility] Comment on above: Performed By: #### 6 9742-5 #### [facility] [address] [place] [address] Neutrophils/100 WBC (Bld) 65.3 % Normal 38.1-75.5 [facility] Comment on above: Performed By: #### 6 9742-5 #### [facility] [address] [place] [address] Platelet mean volume (Bld) [Entitic vol] 9.9 fL Normal 6.2-12.1 [facility] Comment on above: Performed By: #### 6 9742-5 #### [facility] [address] [place] [address] Platelets (Bld) [#/Vol] 453 10*3/uL High 142-424 [facility] Comment on above: Performed By: #### 6 9742-5 #### [facility] [address] [place] [address] RBC (Bld) [#/Vol] 4.52 10*6/uL Normal 3.74-5.34 [facility] Comment on above: Performed By: #### 6 9742-5 #### [facility] [address] [place] [address] WBC (Bld) [#/Vol] 15.0 10*3/uL High 4.6-10.2 [facility] Comment on above: Performed By: #### 6 9742-5 #### [facility] [address] [place] [address] CT ABDOMEN PELVIS WO CONTRAS Ton 01-14-2025 CT ABDOMEN PELVIS WO CONTRAST EXAMINATION TYPE: CT ABDOMEN PELVIS WO CONTRAST DATE OF EXAM : 01/14/2025 6:11 AM HISTORY: 34-year-old female with Abdominal pain, acute, nonlocalized. COMPARISON: None currently available. FINDINGS: Note, the assessment of the solid organs and hollow viscera is limited by the absence of intravenous and enteric contrast. Lung Bases and Heart: Patchy clustered tiny micronodules are seen in a tree-in-bud configuration within the posteromedial aspects of both lower lobes, presumably of an infectious/inflammatory etiology. Liver: Negative. Spleen: Negative. Pancreas: Negative. Gallbladder: Negative. Adrenal Glands: Negative. Kidneys: No calculi are identified within either kidney or along the course of either ureter. No hydronephrosis or hydroureter is seen. Bowel: A moderately large amount of stool is seen primarily within the right colon. No bowel obstruction identified. A normal caliber appendix is seen. Lymph Nodes: No pathologically enlarged lymphadenopathy identified. Vasculature: Normal vasculature. Genitourinary: The urinary bladder is moderately distended and grossly unremarkable. Imaging of the uterus and adnexa are unremarkable. Bones: No acute osseous abnormality is identified. IMPRESSION: 1. No nephrolithiasis or obstructive uropathy identified. 2. A moderately large amount of stool within the right colon. No bowel obstruction identified. 3. Clustered tiny tree-in-bud micronodules within the posteromedial aspects of both lower lobes, nonspecific, but most likely of an infectious/inflammatory etiology. -------- FINAL REPORT -------- Dictated By: Mekhi Tomas Dictated Date: 01/14/2025 06:28 Assigned Physician: Mekhi Tomas Reviewed and Electronically Signed By: Mekhi Tomas Signed Date: 01/14/2025 06:32 Workstation ID: [id number] Transcribed By: Self Edit Transcribed Date: 01/14/2025 06:[address] [facility] [address] Abdomen and Pelvis WO con traston 01-14-2025 1. No nephrolithiasis or obstructive uropathy identified. 2. A moderately large amount of stool within the right colon. No bowel obstruction identified. 3. Clustered tiny tree-in-bud micronodules within the posteromedial aspects of both lower lobes, nonspecific, but most likely of an infectious/inflammatory etiology. -------- FINAL REPORT -------- Dictated By: Mekhi Tomas Dictated Date: 01/14/2025 06:28 Assigned Physician: Mekhi Tomas Reviewed and Electronically Signed By: Mekhi Tomas Signed Date: 01/14/2025 06:32 Workstation ID: [id number] Transcribed By: Self Edit Transcribed Date: 01/14/2025 06:28 POWERSCRIBE EXAMINATION TYPE: CT ABDOMEN PELVIS WO CONTRAST DATE OF EXAM : 01/14/2025 6:11 AM HISTORY: 34-year-old female with Abdominal pain, acute, nonlocalized. COMPARISON: None currently available. FINDINGS: Note, the assessment of the solid organs and hollow viscera is limited by the absence of intravenous and enteric contrast. Lung Bases and Heart: Patchy clustered tiny micronodules are seen in a tree-in-bud configuration within the posteromedial aspects of both lower lobes, presumably of an infectious/inflammatory etiology. Liver: Negative. Spleen: Negative. Pancreas: Negative. Gallbladder: Negative. Adrenal Glands: Negative. Kidneys: No calculi are identified within either kidney or along the course of either ureter. No hydronephrosis or hydroureter is seen. Bowel: A moderately large amount of stool is seen primarily within the right colon. No bowel obstruction identified. A normal caliber appendix is seen. Lymph Nodes: No pathologically enlarged lymphadenopathy identified. Vasculature: Normal vasculature. Genitourinary: The urinary bladder is moderately distended and grossly unremarkable. Imaging of the uterus and adnexa are unremarkable. Bones: No acute osseous abnormality is identified. POWERSCRIBE Mekhi Tomas MD - 01/14/2025 EXAMINATION TYPE: CT ABDOMEN PELVIS WO CONTRAST DATE OF EXAM : 01/14/2025 6:11 AM HISTORY: 34-year-old female with Abdominal pain, acute, nonlocalized. COMPARISON: None currently available. FINDINGS: Note, the assessment of the solid organs and hollow viscera is limited by the absence of intravenous and enteric contrast. Lung Bases and Heart: Patchy clustered tiny micronodules are seen in a tree-in-bud configuration within the posteromedial aspects of both lower lobes, presumably of an infectious/inflammatory etiology. Liver: Negative. Spleen: Negative. Pancreas: Negative. Gallbladder: Negative. Adrenal Glands: Negative. Kidneys: No calculi are identified within either kidney or along the course of either ureter. No hydronephrosis or hydroureter is seen. Bowel: A moderately large amount of stool is seen primarily within the right colon. No bowel obstruction identified. A normal caliber appendix is seen. Lymph Nodes: No pathologically enlarged lymphadenopathy identified. Vasculature: Normal vasculature. Genitourinary: The urinary bladder is moderately distended and grossly unremarkable. Imaging of the uterus and adnexa are unremarkable. Bones: No acute osseous abnormality is identified. IMPRESSION: 1. No nephrolithiasis or obstructive uropathy identified. 2. A moderately large amount of stool within the right colon. No bowel obstruction identified. 3. Clustered tiny tree-in-bud micronodules within the posteromedial aspects of both lower lobes, nonspecific, but most likely of an infectious/inflammatory etiology. -------- FINAL REPORT -------- Dictated By: Mekhi Tomas Dictated Date: 01/14/2025 06:28 Assigned Physician: Mekhi Tomas Reviewed and Electronically Signed By: Mekhi Tomas Signed Date: 01/14/2025 06:32 Workstation ID: [id number] Transcribed By: Self Edit Transcribed Date: 01/14/2025 06:28 [facility] Study observation (narrative) [facility] CT Abdomen and Pelvis WO con trastOrdered By: Mekhi Tomas on 01-14-2025 [facility] Work Phone: Hepatic function 2000 panelo n 01-14-2025 Albumin [Mass/Vol] 4 g/dL 3.5 - 4.8 g/dL [facility] ALP [Catalytic activity/Vol] 74 U/L [facility] ALT [Catalytic activity/Vol] 20 U/L [facility] AST [Catalytic activity/Vol] 12 U/L Low [facility] Bilirubin [Mass/Vol] 0.5 mg/dL 0.3 - 1 .2 mg/dL [facility] Bilirubin.direct [Mass/Vol] mg/dL NINF - 0.5 mg/dL [facility] Bilirubin.indirect [Mass/Vol] [facility] Comment on above: Unable to calculate Indirect Bilirubin. Protein [Mass/Vol] 7.2 g/dL 6.1 - 7.9 g/dL [facility] - Specimen inform ationon 01-14-2025 Specimen source Nom (Unsp spec) Hold for add-ons. [facility] Comment on above: Auto resulted. Lipaseon 01-14-2025 Lipase [Catalytic activity/Vol] 60 U/L [facility] Lipase [Catalytic activity/V ol]on 01-14-2025 Interpretation and review of laboratory results Normal [facility] No Panel Informationon 01-14 [facility] Interpretation and review of laboratory results Abnormal [facility] Nuclear IgG IA Ql (S)on Bilirubin Ql (U) Negative Negative mg/dL [facility] Clarity (U) Clear Clear [facility] Color (U) Colorless Abnormal Yellow [facility] Epithelial cells.squamous LM.HPF (Urine sed) [#/Area] Rare Abnormal None /LPF [facility] Glucose Ql (U) 1000 mg/dL Abnormal Normal [facility] Hemoglobin Ql (U) 3+ Abnormal Negative, Trace [facility] Interpretation and review of laboratory results Abnormal [facility] Ketones (U) [Mass/Vol] Negative Negat jim mg/dL [facility] Leukocyte esterase Test strip Ql (U) Negative Negative WBCs/mcL [facility] Nitrite Ql (U) Negative Negative [facility] pH (U) 7.5 [pH] 5.0 - 8.0 pH [facility] Protein (U) [Mass/Vol] Negative Negat jim mg/dL [facility] RBC LM.HPF (Urine sed) [#/Area] 2 /[HPF] [facility] Specific gravity (U) [Rel density] 1.014 1.002 - 1.030 [facility] Urobilinogen (U) [Mass/Vol] Normal Normal mg/dL [facility] WBC LM.HPF (Urine sed) [#/Area] 5 /[HPF] [facility] Bilirubin, Urine Negative Normal Negative [facility] Comment on above: Performed By: #### 2 9950-3 #### [facility] [address] [place] [address] Blood, Urine 3+ Abnormal Negative, Trace [facility] Comment on above: Performed By: #### 2 9950-3 #### [facility] [address] [place] [address] Clarity (U) Clear Normal Clear [facility] Comment on above: Performed By: #### 2 9950-3 #### [facility] [address] [place] [address] Color (U) Colorless Abnormal Yellow [facility] Comment on above: Performed By: #### 2 9950-3 #### [facility] [address] [place] [address] Glucose Ql (U) 1000 mg/dL Abnormal Normal [facility] Comment on above: Performed By: #### 2 9950-3 #### [facility] [address] [place] [address] Ketones Ql (U) Negative Normal Negative [facility] Comment on above: Performed By: #### 2 9950-3 #### [facility] [address] [place] [address] Leukocytes, Urine Negative Normal Negative [facility] Comment on above: Performed By: #### 2 9950-3 #### [facility] [address] [place] [address] Nitrite, Urine Negative Normal Negative [facility] Comment on above: Performed By: #### 2 9950-3 #### [facility] [address] [place] [address] pH (U) 7.5 [pH] Normal 5.0-8.0 [facility] Comment on above: Performed By: #### 2 9950-3 #### [facility] [address] [place] [address] Protein, Urine Negative Normal Negative [facility] Comment on above: Performed By: #### 2 9950-3 #### [facility] [address] [place] [address] RBC LM.HPF (Urine sed) [#/Area] 2 /[HPF] Normal 0-5 [facility] Comment on above: Performed By: #### 2 50-3 #### [facility] [address] [place] [address] 125[address] Specific [place] Urine 1.014 Normal 1.002-1.030 [facility] Comment on above: Performed By: #### 2 50-3 #### [facility] [address] [place] [address] Squamous Epithelial, Urine Rare Abnormal None [facility] Comment on above: Performed By: #### 2 50-3 #### [facility] [address] [place] [address] Urobilinogen, Urine Normal Normal Normal [facility] Comment on above: Performed By: #### 2 9950-3 #### [facility] [address] [place] [address] WBC LM.HPF (Urine sed) [#/Area] 5 /[HPF] Normal 0-5 [facility] Comment on above: Performed By: #### 2 50-3 #### [facility] [address] [place] [address] Basic metabolic 2000 panelon 01-12-2025 Anion gap [Moles/Vol] 11 mmol/L 6 - 18 [facility] Calcium [Mass/Vol] 9.1 mg/dL 8.9 - 10. 3 mg/dL [facility] Chloride [Moles/Vol] 99 mmol/L 98 - 10 7 mmol/L [facility] CO2 [Moles/Vol] 23 mmol/L 22 - 32 mmol/L [facility] Creatinine [Mass/Vol] 0.86 mg/dL 0.60 - 1.30 mg/dL [facility] GFR/1.73 sq M.predicted among non-blacks MDRD (S/P/Bld) [Vol rate/Area] 92 mL/min/{1.73_m2} - PINF [facility] Comment on above: Calculation based on the Chronic Kidney Disease Epidemiology Collaboration (CKD-EPI) equation refit without adjustment for race. Glucose [Mass/Vol] 307 mg/dL High 70 - 99 mg/dL [facility] Potassium [Moles/Vol] 5.1 mmol/L 3.6 - 5.1 mmol/L [facility] Sodium [Moles/Vol] 133 mmol/L Low 136 - 145 mmol/L [facility] Urea nitrogen [Mass/Vol] 15 mg/dL 8 - 20 mg/dL [facility] Urea nitrogen/Creatinine [Mass ratio] 17.4 mg/mg 12.0 - 20.0 [facility] Lipase [Catalytic activity/Vol] 90 U/L High 11-82 [facility] Comment on above: Performed By: #### 2 4321-2 #### [facility] [address] [place] [address]408 CBC W Differential panel, sd thod unspecified (Bld)on 01-12-2025 Basophils (Bld) [#/Vol] 0.07 10*3/uL [facility] Basophils/100 WBC (Bld) 0.5 % 0.0 - 2.0 % [facility] Eosinophils (Bld) [#/Vol] 0.01 10*3/uL [facility] Eosinophils/100 WBC (Bld) 0.1 % 0.0 - 7.0 % [facility] Erythrocyte distribution width (RBC) [Ratio] 14.4 % 11.0 - 14.8 % [facility] Hematocrit (Bld) [Volume fraction] 39 % 34.3 - 47.9 % [facility] Hemoglobin (Bld) [Mass/Vol] 12.6 g/dL 12.0 - 16.0 g/dL [facility] Immature granulocytes (Bld) [#/Vol] 0.15 10*3/uL High [facility] Immature granulocytes/100 WBC (Bld) 1.2 % 0.0 - 1.2 % [facility] Interpretation and review of laboratory results Abnormal [facility] Lymphocytes (Bld) [#/Vol] 2.72 10*3/uL [facility] Lymphocytes/100 WBC (Bld) 21.4 % 17.9 - 49.6 % [facility] MCH (RBC) [Entitic mass] 26.9 pg Low [facility] MCHC (RBC) [Mass/Vol] 32.3 g/dL 30.8 - 35.3 g/dL [facility] MCV (RBC) [Entitic vol] 83.3 fL T [facility] Monocytes (Bld) [#/Vol] 0.53 10*3/uL [facility] Monocytes/100 WBC (Bld) 4.2 % 0.0 - 12.0 % [facility] Neutrophils (Bld) [#/Vol] 9.25 10*3/uL High [facility] Neutrophils/100 WBC (Bld) 72.6 % 38.1 - 75.5 % [facility] Platelet mean volume (Bld) [Entitic vol] 9.7 fL [facility] Platelets (Bld) [#/Vol] 441 10*3/uL High [facility] RBC (Bld) [#/Vol] 4.68 10*6/uL [facility] WBC (Bld) [#/Vol] 12.7 10*3/uL High [facility] Basophils (Bld) [#/Vol] 0.07 10*3/uL Normal 0.00-0.20 [facility] Comment on above: Performed By: #### 6 9742-5 #### [facility] [address] [place] [address] [place] [address] Basophils/100 WBC (Bld) 0.5 % Normal 0.0-2.0 [facility] Comment on above: Performed By: #### 6 9742-5 #### [facility] [address] [place] [address] Eosinophils (Bld) [#/Vol] 0.01 10*3/uL Normal 0.00-0.70 [facility] Comment on above: Performed By: #### 6 9742-5 #### [facility] [address] [place] [address] Eosinophils/100 WBC (Bld) 0.1 % Normal 0.0-7.0 [facility] Comment on above: Performed By: #### 6 9742-5 #### [facility] [address] [place] [address] Erythrocyte distribution width (RBC) [Ratio] 14.4 % Normal 11.0-14.8 [facility] Comment on above: Performed By: #### 6 9742-5 #### [facility] [address] [place] [address] Hematocrit (Bld) [Volume fraction] 39.0 % Normal 34.3-47.9 [facility] Comment on above: Performed By: #### 6 9742-5 #### [facility] [address] [place] [address] Hemoglobin (Bld) [Mass/Vol] 12.6 g/dL Normal 12.0-16.0 [facility] Comment on above: Performed By: #### 6 9742-5 #### [facility] [address] [place] [address] Immature granulocytes (Bld) [#/Vol] 0.15 10*3/uL High 0.00-0.10 [facility] Comment on above: Performed By: #### 6 9742-5 #### [facility] [address] [place] [address]13 Immature granulocytes/100 WBC (Bld) 1.2 % Normal 0.0-1.2 [facility] Comment on above: Performed By: #### 6 9742-5 #### [facility] [address] [place] [address] Lymphocytes (Bld) [#/Vol] 2.72 10*3/uL Normal 1.00-4.80 [facility] Comment on above: Performed By: #### 6 9742-5 #### [facility] [address] [place] [address] Lymphocytes/100 WBC (Bld) 21.4 % Normal 17.9-49.6 [facility] Comment on above: Performed By: #### 6 9742-5 #### [facility] [address] [place] [address] 12516 MCH 26.9 pcg Low 27.0-34.0 [facility] Comment on above: Performed By: #### 6 9742-5 #### [facility] [address] [place] [address] MCHC (RBC) [Mass/Vol] 32.3 g/dL Normal 30.8-35.3 [facility] Comment on above: Performed By: #### 6 9742-5 #### [facility] [address] [place] [address] MCV (RBC) [Entitic vol] 83.3 fL Normal 80.0-97.0 [facility] Comment on above: Performed By: #### 6 9742-5 #### [facility] [address] [place] [address] Monocytes (Bld) [#/Vol] 0.53 10*3/uL Normal 0.00-0.90 [facility] Comment on above: Performed By: #### 6 9742-5 #### [facility] [address] [place] [address] Monocytes/100 WBC (Bld) 4.2 % Normal 0.0-12.0 [facility] Comment on above: Performed By: #### 6 9742-5 #### [facility] [address] [place] [address] Neutrophils Absolute 9.25 K/mcL High 1.80-7.70 [facility] Comment on above: Performed By: #### 6 9742-5 #### [facility] [address] [place] [address] Neutrophils/100 WBC (Bld) 72.6 % Normal 38.1-75.5 [facility] Comment on above: Performed By: #### 6 9742-5 #### [facility] [address] [place] [address] Platelet mean volume (Bld) [Entitic vol] 9.7 fL Normal 6.2-12.1 [facility] Comment on above: Performed By: #### 6 9742-5 #### [facility] [address] [place] [address] Platelets (Bld) [#/Vol] 441 10*3/uL High 142-424 [facility] Comment on above: Performed By: #### 6 9742-5 #### [facility] [address] [place] [address] RBC (Bld) [#/Vol] 4.68 10*6/uL Normal 3.74-5.34 [facility] Comment on above: Performed By: #### 6 9742-5 #### [facility] [address] [place] [address] WBC (Bld) [#/Vol] 12.7 10*3/uL High 4.6-10.2 [facility] Comment on above: Performed By: #### 6 9742-5 #### [facility] [address] [place] [address] Hepatic function 2000 panelo n 01-12-2025 Albumin [Mass/Vol] 4 g/dL 3.5 - 4.8 g/dL [facility] ALP [Catalytic activity/Vol] 89 U/L [facility] ALT [Catalytic activity/Vol] 25 U/L [facility] AST [Catalytic activity/Vol] 20 U/L [facility] Bilirubin [Mass/Vol] 0.5 mg/dL 0.3 - 1 .2 mg/dL [facility] Bilirubin.direct [Mass/Vol] 0.1 mg/dL NINF - 0.5 mg/dL [facility] Bilirubin.indirect [Mass/Vol] 0.4 mg/dL 0.0 - 1.0 mg/dL [facility] Interpretation and review of laboratory results Normal [facility] Protein [Mass/Vol] 7.6 g/dL 6.1 - 7.9 g/dL [facility] Lipaseon 01-12-2025 Lipase [Catalytic activity/Vol] 90 U/L High [facility] No Panel Informationon 01-12 Interpretation and review of laboratory results Abnormal [facility] US ABDOMEN LIMITEDon 025 US ABDOMEN LIMITED EXAMINATION TYPE: US ABDOMEN LIMITED DATE OF EXAM : 01/12/2025 9:17 AM HISTORY: eval RUq pain COMPARISON: None FINDINGS: The visualized portion of the pancreas appears normal. Hepatic steatosis. No liver lesion is identified. The visualized portion of the common bile duct is normal in caliber. The common bile duct measures 2 mm. No intrahepatic biliary ductal dilatation. The gallbladder appears normal. No gallstones are identified. No gallbladder wall thickening or pericholecystic fluid. Sonographic Morris sign is negative. Evaluation of the right kidney demonstrates no hydronephrosis. IMPRESSION: 1. No acute abnormality. No gallstone. 2. Hepatic steatosis. -------- FINAL REPORT -------- Dictated By: Jatin Thomas Dictated Date: 01/12/2025 09:54 Assigned Physician: Jatin Thomas Reviewed and Electronically Signed By: Jatin Thomas Signed Date: 01/12/2025 09:56 Workstation ID: [id number] Transcribed By: Self Edit Transcribed Date: 01/12/2025 09:54 Normal [facility] US Abdomen limitedon 025 1. No acute abnormality. No gallstone. 2. Hepatic steatosis. -------- FINAL REPORT -------- Dictated By: Jatin Thomas Dictated Date: 01/12/2025 09:54 Assigned Physician: Jatin Thomas Reviewed and Electronically Signed By: Jatin Thomas Signed Date: 01/12/2025 09:56 Workstation ID: [id number] Transcribed By: Self Edit Transcribed Date: 01/12/2025 09:54 POWERSCRIBE EXAMINATION TYPE: US ABDOMEN LIMITED DATE OF EXAM : 01/12/2025 9:17 AM HISTORY: eval RUq pain COMPARISON: None FINDINGS: The visualized portion of the pancreas appears normal. Hepatic steatosis. No liver lesion is identified. The visualized portion of the common bile duct is normal in caliber. The common bile duct measures 2 mm. No intrahepatic biliary ductal dilatation. The gallbladder appears normal. No gallstones are identified. No gallbladder wall thickening or pericholecystic fluid. Sonographic Morris sign is negative. Evaluation of the right kidney demonstrates no hydronephrosis. POWERSCRIBE Jatin Thomas MD - 01/12/2025 EXAMINATION TYPE: US ABDOMEN LIMITED DATE OF EXAM : 01/12/2025 9:17 AM HISTORY: eval RUq pain COMPARISON: None FINDINGS: The visualized portion of the pancreas appears normal. Hepatic steatosis. No liver lesion is identified. The visualized portion of the common bile duct is normal in caliber. The common bile duct measures 2 mm. No intrahepatic biliary ductal dilatation. The gallbladder appears normal. No gallstones are identified. No gallbladder wall thickening or pericholecystic fluid. Sonographic Morris sign is negative. Evaluation of the right kidney demonstrates no hydronephrosis. IMPRESSION: 1. No acute abnormality. No gallstone. 2. Hepatic steatosis. -------- FINAL REPORT -------- Dictated By: Jatin Thomas Dictated Date: 01/12/2025 09:54 Assigned Physician: Jatin Thomas Reviewed and Electronically Signed By: Jatin Thomas Signed Date: 01/12/2025 09:56 Workstation ID: [id number] Transcribed By: Self Edit Transcribed Date: 01/12/2025 09:54 [facility] Radiology Study observation (narrative) [facility] US Abdomen limitedOrdered By : Jatin Thomas on 01-12-2025 [facility] Work Phone: Absolute lymphocyte countOrd ered By: Frantz Coulter on 01-08-2025 Lymphocytes Auto (Unsp spec) [#/Vol] 4.91 10*3/uL High 0.83-4.51 [facility] Anion gap in Serum or Plasma Ordered By: Frantz Coulter on 01-08-2025 Anion gap [Moles/Vol] 14 mmol/L 5- [facility] Automated lymphocyte count a s percentage of total leukocytesOrdered By: Frantz Coulter on 01-08-2025 Lymphocytes/100 WBC Auto (Unsp spec) 41.0 % - [facility] BUN/creatinine ratioOrdered By: Frantz Coulter on 01-08-2025 Urea nitrogen/Creatinine [Mass ratio] 11.2 mg/mg 10- [facility] Basic Metabolic Profile (BMP )on 01-08-2025 BUN/CRE 11.2 RATIO Normal - [facility] Comment on above: Performed By: #### L 500.2500 ####[facility] [address] [place], [address] Calcium [Mass/Vol] 8.2 mg/dL Normal 7.6-11.0 [facility] Comment on above: Performed By: #### L 500.2500 ####[facility] [address] [place], [address] Chloride [Moles/Vol] 100 mmol/L Normal 98-108 [facility] Comment on above: Performed By: #### L 500.2500 ####[facility] [address] [place], [address] CO2 [Moles/Vol] 23.8 mmol/L Normal 21.0-32.0 [facility] Comment on above: Performed By: #### L 500.2500 ####[facility] [address] [place], [address] Creatinine [Mass/Vol] 0.91 mg/dL Normal 0.70-1.20 [facility] Comment on above: Performed By: #### L 500.2500 ####[facility] [address] [place], [address] ECRCL 108.36 ml/min Normal 50-250 [facility] Comment on above: Performed By: #### L 500.2500 ####[facility] [address] [place], [address] GAP 14 Normal 5-15 [facility] Comment on above: Performed By: #### L 500.2500 ####[facility] [address] [place], [address] GFR/1.73 sq M.predicted among non-blacks MDRD (S/P/Bld) [Vol rate/Area] 86 mL/min/{1.73_m2} Normal >60 [facility] Comment on above: Result Comment: mL/m in/1.73m2 CKD-EPI Creatinine Equation (2020) Performed By: #### L 500.2500 ####[facility] [address] [place], [address] Glucose [Mass/Vol] 81 mg/dL Normal 70-99 [facility] Comment on above: Performed By: #### L 500.2500 ####[facility] [address] [place], [address] Potassium [Moles/Vol] 2.9 mmol/L Low 3.3-5.1 [facility] Comment on above: Result Comment: Hemo lysis present, Results??could be affected.?? Performed By: #### L 500.2500 ####[facility] [address] [place], [address] Sodium [Moles/Vol] 137 mmol/L Normal 133-145 [facility] Comment on above: Performed By: #### L 500.2500 ####[facility] [address] [place], [address] Urea nitrogen [Mass/Vol] 10 mg/dL Normal 4-19 [facility] Comment on above: Performed By: #### L 500.2500 ####[facility] [address] [place], [address] Basophil percentageOrdered B y: Fratnz Coulter on 01-08-2025 Basophils/100 WBC (Bld) 0.3 % 0-1 [facility] Glucoseon 01-08-2025 FINGERSTICK GLU 162 mg/dL High 74-106 [facility] Comment on above: Result Comment: BULL GEMENT OF PATIENT CARE PER NURSING PROTOCOL Performed By: #### L 501.080 ####[facility] [address] [place], [address] FINGERSTICK GLU 128 mg/dL High 74-106 [facility] Comment on above: Result Comment: BULL GEMENT OF PATIENT CARE PER NURSING PROTOCOL Performed By: #### L 501.080 ####[facility] [address] [place], [address] FINGERSTICK GLU 138 mg/dL High 74-106 [facility] Comment on above: Result Comment: BULL GEMENT OF PATIENT CARE PER NURSING PROTOCOL Performed By: #### L 501.080 ####[facility] [address] [place], [address] FINGERSTICK GLU 114 mg/dL High 74-106 [facility] Comment on above: Result Comment: BULL GEMENT OF PATIENT CARE PER NURSING PROTOCOL Performed By: #### L 501.080 ####[facility] [address] [place], [address] FINGERSTICK GLU 94 mg/dL Normal 74-106 [facility] Comment on above: Result Comment: BULL GEMENT OF PATIENT CARE PER NURSING PROTOCOL Performed By: #### L 501.080 ####[facility] [address] [place], [address] FINGERSTICK GLU 72 mg/dL Low 74-106 [facility] Comment on above: Result Comment: BULL GEMENT OF PATIENT CARE PER NURSING PROTOCOL Performed By: #### L 501.080 ####[facility] [address] [place], [address] FINGERSTICK GLU 103 mg/dL Normal 74-106 [facility] Comment on above: Result Comment: BULL GEMENT OF PATIENT CARE PER NURSING PROTOCOL Performed By: #### L 501.080 ####[facility] [address] [place], [address] FINGERSTICK GLU 132 mg/dL High 74-106 [facility] Comment on above: Result Comment: BULL GEMENT OF PATIENT CARE PER NURSING PROTOCOL Performed By: #### L 501.080 ####[facility] [address] [place], [address] FINGERSTICK GLU 85 mg/dL Normal 74-106 [facility] Comment on above: Result Comment: BULL GEMENT OF PATIENT CARE PER NURSING PROTOCOL Performed By: #### L 501.080 ####[facility] [address] [place], [address] FINGERSTICK GLU 71 mg/dL Low 74-106 [facility] Comment on above: Result Comment: BULL GEMENT OF PATIENT CARE PER NURSING PROTOCOL Performed By: #### L 501.080 ####[facility] [address] [place], [address] FINGERSTICK GLU 115 mg/dL High 74-106 [facility] Comment on above: Result Comment: BULL GEMENT OF PATIENT CARE PER NURSING PROTOCOL Performed By: #### L 501.080 ####[facility] [address] [place], [address] FINGERSTICK GLU 130 mg/dL High 74-106 [facility] Comment on above: Result Comment: BULL GEMENT OF PATIENT CARE PER NURSING PROTOCOL Performed By: #### L 501.080 ####[facility] [address] [place], [address] FINGERSTICK GLU 58 mg/dL Low 74-106 [facility] Comment on above: Result Comment: BULL GEMENT OF PATIENT CARE PER NURSING PROTOCOL Performed By: #### L 501.080 ####[facility] [address] [place], [address] FINGERSTICK GLU 107 mg/dL High 74-106 [facility] Comment on above: Result Comment: BULL GEMENT OF PATIENT CARE PER NURSING PROTOCOL Performed By: #### L 501.080 ####[facility] [address] [place], [address] FINGERSTICK GLU 57 mg/dL Low 74-106 [facility] Comment on above: Result Comment: BULL GEMENT OF PATIENT CARE PER NURSING PROTOCOL Performed By: #### L 501.080 ####[facility] [address] [place], [address] CBC W/Diff, Automatedon 06-3 0-2025 Absolute Lymph 4.91 X10 3/uL High 0.83-4.51 [facility] Comment on above: Performed By: #### L 100.0100 ####[facility] [address] [place], [address] Absolute Neut 6.0 X10 3/uL Normal 2.0-7.7 [facility] Comment on above: Performed By: #### L 100.0100 ####[facility] [address] [place], [address] Basophils/100 WBC (Bld) 0.3 % Normal 0-1 [facility] Comment on above: Performed By: #### L 100.0100 ####[facility] [address] [place], [address] Eosinophils/100 WBC (Bld) 0.4 % Normal 0-5 [facility] Comment on above: Performed By: #### L 100.0100 ####[facility] [address] [place], [address] Erythrocyte distribution width (RBC) [Ratio] 14.8 % High 11.6-14.6 [facility] Comment on above: Performed By: #### L 100.0100 ####[facility] [address] [place], [address] Hematocrit (Bld) [Volume fraction] 33.6 % Low 37-47 [facility] Comment on above: Performed By: #### L 100.0100 ####[facility] [address] [place], [address] Hemoglobin (Bld) [Mass/Vol] 11.0 g/dL Low 12.0-15.0 [facility] Comment on above: Performed By: #### L 100.0100 ####[facility] [address] [place], [address] IG% 0.700 Normal 0.0-0.9 [facility] Comment on above: Result Comment: IG% - Immature Granulocytes (promyelocytes, myelocytes andmetamyelocytes) > 1% indicates that a LEFT SHIFT is Present. Performed By: #### L 100.0100 ####[facility] [address] [place], [address] Lymphocytes/100 WBC (Bld) 41.0 % Normal 19-41 [facility] Comment on above: Performed By: #### L 100.0100 ####[facility] [address] [place], [address] MCH (RBC) [Entitic mass] 27.4 pg Normal 27.0-32.0 [facility] Comment on above: Performed By: #### L 100.0100 ####[facility] [address] [place], [address] MCHC (RBC) [Mass/Vol] 32.7 g/dL Normal 32-36 [facility] Comment on above: Performed By: #### L 100.0100 ####[facility] [address] [place], [address] MCV (RBC) [Entitic vol] 83.8 fL Normal 81-99 [facility] Comment on above: Performed By: #### L 100.0100 ####[facility] [address] [place], [address] Monocytes/100 WBC (Bld) 7.6 % Normal 0-10 [facility] Comment on above: Performed By: #### L 100.0100 ####[facility] [address] [place], [address] Neutrophils/100 WBC (Bld) 50.0 % Normal 47-70 [facility] Comment on above: Performed By: #### L 100.0100 ####[facility] [address] [place], [address] Nucleated RBC (Bld) [#/Vol] 0 10*3/uL Normal 0-5 [facility] Comment on above: Performed By: #### L 100.0100 ####[facility] [address] [place], [address] Platelet mean volume (Bld) [Entitic vol] 9.6 fL Normal 6.2-12.0 [facility] Comment on above: Performed By: #### L 100.0100 ####[facility] [address] [place], [address] Platelets (Bld) [#/Vol] 299 10*3/uL Normal 150-450 [facility] Comment on above: Performed By: #### L 100.0100 ####[facility] [address] [place], [address] RBC (Bld) [#/Vol] 4.01 10*6/uL Low 4.2-5.4 [facility] Comment on above: Performed By: #### L 100.0100 ####[facility] [address] [place], [address] RDW SD 44.8 fl High 35.1-43.9 [facility] Comment on above: Performed By: #### L 100.0100 ####[facility] [address] [place], [address] WBC (Bld) [#/Vol] 12.0 10*3/uL High 4.4-11.0 [facility] Comment on above: Performed By: #### L 100.0100 ####[facility] [address] [place], [place], [id number]) Carbon dioxide, total [Moles /volume] in Central venous bloodOrdered By: Frantz Coulter on 01-08-2025 CO2 [Moles/Vol] 23.8 mmol/L 21.0-32.0 [facility] Chloride assayOrdered By: Tena Coulter on 01-08-2025 Chloride [Moles/Vol] 100 mmol/L 98-108 [facility] Eosinophil percentageOrdered By: Frantz Coulter on 01-08-2025 Eosinophils/100 WBC (Bld) 0.4 % 0-5 [facility] Erythrocyte distribution wid th ratioOrdered By: Frantz Coulter on 01-08-2025 Erythrocyte distribution width (RBC) [Ratio] 14.8 % High 11.6-14.6 [facility] Erythrocyte distribution wid th standard deviationOrdered By: Frantz Coulter on 01-08-2025 Erythrocyte distribution width (RBC) [Ratio] 44.8 fl High 35.1-43.9 [facility] Glomerular filtration rate ( GFR) estimation/1.73 sq m using serum, plasma, or whole bOrdered By: Frantz Coulter on 01-08-2025 GFR/1.73 sq M.predicted among non-blacks MDRD (S/P/Bld) [Vol rate/Area] 86 mL/min/{1.73_m2} >60 [facility] deOrdered By: Frantz Coulter on 01-08-2025 Glucose [Mass/Vol] 162 mg/dL High 74-106 [facility] Hematocrit Auto (Bld) [Volum e fraction]Ordered By: Frantz Coulter on 01-08-2025 Hematocrit (Bld) [Volume fraction] 33.6 % Low 37-47 [facility] Hemoglobin measurementOrdere d By: Frantz Coulter on 01-08-2025 Hemoglobin (Bld) [Mass/Vol] 11.0 g/dL Low 12.0-15.0 [facility] Immature granulocytes/100 WB C Auto (Bld)Ordered By: Frantz Coulter on 01-08-2025 Immature granulocytes/100 WBC (Bld) 0.700 % 0.0-0.9 [facility] MCV (mean corpuscular volume ) determinationOrdered By: Frantz Coulter on 01-08-2025 MCV (RBC) [Entitic vol] 83.8 fL 81-99 [facility] Mean corpuscular hemoglobin (MCH) determinationOrdered By: Frantz Coulter on 01-08-2025 MCH (RBC) [Entitic mass] 27.4 pg 27.0-32.0 [facility] Monocyte percentageOrdered B y: Frantz Coulter on 01-08-2025 Monocytes/100 WBC (Bld) 7.6 % 0-10 [facility] Neutrophil percentageOrdered By: Frantz Coulter on 01-08-2025 Neutrophils/100 WBC (Bld) 50.0 % 47-70 [facility] Platelet countOrdered By: Tena Coulter on 01-08-2025 Platelets (Bld) [#/Vol] 299 10*3/uL 150-450 [facility] Potassiumon 01-08-2025 Potassium [Moles/Vol] 3.5 mmol/L Normal 3.3-5.1 [facility] Comment on above: Performed By: #### L 501.5600 ####[facility] [address] [place], [address] Potassium measurement (mass/ volume)Ordered By: Frantz Coulter on 01-08-2025 Potassium (Unsp spec) [Mass/Vol] 3.5 mmol/L 3.3-5.1 [facility] RBC Auto (Bld) [#/Vol]Ordere d By: Frantz Coulter on 01-08-2025 RBC (Bld) [#/Vol] 4.01 10*6/uL Low 4.2-5.4 [facility] Serum creatinine measurement (mass/volume)Ordered By: Frantz Coulter on 01-08-2025 Creatinine [Mass/Vol] 0.91 mg/dL 0.70-1.20 [facility] Serum glucose measurement (m ass/volume)Ordered By: Frantz Coulter on 01-08-2025 Glucose [Mass/Vol] 81 mg/dL 70-99 [facility] Serum or plasma calcium hussein urement (mass/volume)Ordered By: Frantz Coulter on 01-08-2025 Calcium [Mass/Vol] 8.2 mg/dL 7.6-11.0 [facility] Serum or plasma urea nitroge n measurement (mass/volume)Ordered By: Frantz Coulter on 01-08-2025 Urea nitrogen [Mass/Vol] 10 mg/dL 4-19 [facility] Sodium levelOrdered By: Frantz Coulter on 01-08-2025 Sodium [Moles/Vol] 137 mmol/L 133-145 [facility] White blood cell (WBC) count Ordered By: Frantz Coulter on 01-08-2025 WBC (Bld) [#/Vol] 12.0 10*3/uL High 4.4-11.0 [facility] 12 Lead EKGon 01-07-2025 12 Lead EKG Normal [facility] Abdomen/Pelvis W IV Cont ONL Yon 01-07-2025 Abdomen/Pelvis W IV Cont ONLY Normal [facility] Absolute lymphocyte countOrd ered By: Rosetta Amaya on 01-07-2025 Lymphocytes Auto (Unsp spec) [#/Vol] 4.44 10*3/uL 0.83-4.51 [facility] Alcohol, Blood (Medical)-Ser umon 01-07-2025 SERUM ETOH < 10.1 Normal <=10.0 [facility] Comment on above: Result Comment: This test is for medical purposes only. The legaldefinition of intoxication varies according to local law. Performed By: #### L 100.0100, L501.9100, L700.6800, L500.4050, L505.5000 ####[facility] [address] [place], [address] Amphetamine detection with 1 000 ng/mL as cutoffOrdered By: Rosetta Amaya on 01-07-2025 Amphetamines Screen method >1000 ng/mL Ql (U) Negative < 200 ng/mL [facility] Anion gap in Serum or Plasma Ordered By: Rosetta Amaya on 01-07-2025 Anion gap [Moles/Vol] 18 mmol/L High 5-15 [facility] Automated lymphocyte count a s percentage of total leukocytesOrdered By: Rosetta Amaya on 01-07-2025 Lymphocytes/100 WBC Auto (Unsp spec) 27.8 % 19-41 [facility] BUN/creatinine ratioOrdered By: Rosetta Amaya on 01-07-2025 Urea nitrogen/Creatinine [Mass ratio] 10.4 mg/mg 10-20 [facility] Basic Metabolic Profile (BMP )on 01-07-2025 BUN Normal 4-19 [facility] Comment on above: Result Comment: NO S PECIMEN DRAWN Performed By: #### L 500.2500 ####[facility] [address] [place], [address] BUN/CRE Normal 10- [facility] Comment on above: Result Comment: NO S PECIMEN DRAWN Performed By: #### L 500.2500 ####[facility] [address] [place], [address] Calcium Normal 7.6-11.0 [facility] Comment on above: Result Comment: NO S PECIMEN DRAWN Performed By: #### L 500.2500 ####[facility] [address] [place], [address] CL Normal 98-108 [facility] Comment on above: Result Comment: NO S PECIMEN DRAWN Performed By: #### L 500.2500 ####[facility] [address] [place], [address] CO2 Normal 21.0-32.0 [facility] Comment on above: Result Comment: NO S PECIMEN DRAWN Performed By: #### L 500.2500 ####[facility] [address] [place], [address] CREAT,SERUM Normal 0.70-1.20 [facility] Comment on above: Result Comment: NO S PECIMEN DRAWN Performed By: #### L 500.2500 ####[facility] [address] [place], [address] eGFR Normal >60 [facility] Comment on above: Result Comment: NO S PECIMEN DRAWN Performed By: #### L 500.2500 ####[facility] [address] [place], [address] GAP Normal 5-15 [facility] Comment on above: Result Comment: NO S PECIMEN DRAWN Performed By: #### L 500.2500 ####[facility] [address] [place], [address] GLU Normal 70-99 [facility] Comment on above: Result Comment: NO S PECIMEN DRAWN Performed By: #### L 500.2500 ####[facility] [address] [place], [address] Potassium Normal 3.3-5.1 [facility] Comment on above: Result Comment: NO S PECIMEN DRAWN Performed By: #### L 500.2500 ####[facility] [address] [place], [address] Basic Metabolic Profile (BMP) Normal 133-145 [facility] Comment on above: Result Comment: NO S PECIMEN DRAWN Performed By: #### L 500.2500 ####[facility] [address] [place], [address] Basophil percentageOrdered B y: Rosetta Amaya on 01-07-2025 Basophils/100 WBC (Bld) 0.2 % 0-1 [facility] Bedside Glucoseon 01-07-2025 FINGERSTICK GLU 153 mg/dL High 74-106 [facility] Comment on above: Result Comment: BULL GEMENT OF PATIENT CARE PER NURSING PROTOCOL Performed By: #### L 501.080 ####[facility] [address] [place], [address] FINGERSTICK GLU 96 mg/dL Normal 74-106 [facility] Comment on above: Result Comment: BULL GEMENT OF PATIENT CARE PER NURSING PROTOCOL Performed By: #### L 501.080 ####[facility] [address] [place], [address] FINGERSTICK GLU 121 mg/dL High 74-106 [facility] Comment on above: Result Comment: BULL GEMENT OF PATIENT CARE PER NURSING PROTOCOL Performed By: #### L 501.080 ####[facility] [address] [place], [address] FINGERSTICK GLU 74 mg/dL Normal 74-106 [facility] Comment on above: Result Comment: BULL GEMENT OF PATIENT CARE PER NURSING PROTOCOL Performed By: #### L 501.080 ####[facility] [address] [place], [address] FINGERSTICK GLU 105 mg/dL Normal 74-106 [facility] Comment on above: Result Comment: BULL GEMENT OF PATIENT CARE PER NURSING PROTOCOL Performed By: #### L 501.080 ####[facility] [address] [place], [address] FINGERSTICK GLU 46 mg/dL Low 74-106 [facility] Comment on above: Result Comment: BULL GEMENT OF PATIENT CARE PER NURSING PROTOCOL Performed By: #### L 501.080 ####[facility] [address] [place], [address] FINGERSTICK GLU 156 mg/dL High 74-106 [facility] Comment on above: Result Comment: BULL GEMENT OF PATIENT CARE PER NURSING PROTOCOL Performed By: #### L 501.080 ####[facility] [address] [place], [address] FINGERSTICK GLU 75 mg/dL Normal 74-106 [facility] Comment on above: Result Comment: BULL GEMENT OF PATIENT CARE PER NURSING PROTOCOL Performed By: #### L 501.080 ####[facility] [address] [place], [address] FINGERSTICK GLU 86 mg/dL Normal 74-106 [facility] Comment on above: Result Comment: BULL GEMENT OF PATIENT CARE PER NURSING PROTOCOL Performed By: #### L 501.080 ####[facility] [address] [place], [address] FINGERSTICK GLU 97 mg/dL Normal 74-106 [facility] Comment on above: Result Comment: BULL GEMENT OF PATIENT CARE PER NURSING PROTOCOL Performed By: #### L 501.080 ####[facility] [address] [place], [address] FINGERSTICK GLU 111 mg/dL High 74-106 [facility] Comment on above: Result Comment: BULL GEMENT OF PATIENT CARE PER NURSING PROTOCOL Performed By: #### L 501.080 ####[facility] [address] [place], [address] FINGERSTICK GLU 68 mg/dL Low 74-106 [facility] Comment on above: Result Comment: BULL GEMENT OF PATIENT CARE PER NURSING PROTOCOL Performed By: #### L 501.080 ####[facility] [address] [place], [address] FINGERSTICK GLU 71 mg/dL Low 74-106 [facility] Comment on above: Result Comment: BULL [place]AY[place] OF PATIENT CARE PER NURSING PROTOCOL Performed By: #### L 501.080 ####[facility] [address] [place], [address] Bilirubin Test strip Ql (U)O rdered By: Rosetta Amaya on 01-07-2025 Bilirubin Ql (U) Negative Negative [facility] Bilirubin, totalOrdered By: Rosetta Amaya on 01-07-2025 Bilirubin [Mass/Vol] 0.64 mg/dL 0.00-1.30 [facility] CBC W/Diff, Automatedon 12-11 Absolute Lymph 4.44 X10 3/uL Normal 0.83-4.51 [facility] Comment on above: Performed By: #### L 100.0100, L501.9100, L700.6800, L500.4050, L505.5000 ####[facility] [address] [place], [address] Absolute Neut 10.2 X10 3/uL High 2.0-7.7 [facility] Comment on above: Performed By: #### L 100.0100, L501.9100, L700.6800, L500.4050, L505.5000 ####[facility] [address] [place], [address] Basophils/100 WBC (Bld) 0.2 % Normal 0-1 [facility] Comment on above: Performed By: #### L 100.0100, L501.9100, L700.6800, L500.4050, L505.5000 ####[facility] [address] [place], [address] Eosinophils/100 WBC (Bld) 0.1 % Normal 0-5 [facility] Comment on above: Performed By: #### L 100.0100, L501.9100, L700.6800, L500.4050, L505.5000 ####[facility] [address] [place], [address] Erythrocyte distribution width (RBC) [Ratio] 14.6 % Normal 11.6-14.6 [facility] Comment on above: Performed By: #### L 100.0100, L501.9100, L700.6800, L500.4050, L505.5000 ####[facility] [address] [place], [address] Hematocrit (Bld) [Volume fraction] 38.5 % Normal 37-47 [facility] Comment on above: Performed By: #### L 100.0100, L501.9100, L700.6800, L500.4050, L505.5000 ####[facility] [address] [place], [address] Hemoglobin (Bld) [Mass/Vol] 13.1 g/dL Normal 12.0-15.0 [facility] Comment on above: Performed By: #### L 100.0100, L501.9100, L700.6800, L500.4050, L505.5000 ####[facility] [address] [place], [address] IG% 0.600 Normal 0.0-0.9 [facility] Comment on above: Result Comment: IG% - Immature Granulocytes (promyelocytes, myelocytes andmetamyelocytes) > 1% indicates that a LEFT SHIFT is Present. Performed By: #### L 100.0100, L501.9100, L700.6800, L500.4050, L505.5000 ####[facility] [address] [place], [address] Lymphocytes/100 WBC (Bld) 27.8 % Normal 19-41 [facility] Comment on above: Performed By: #### L 100.0100, L501.9100, L700.6800, L500.4050, L505.5000 ####[facility] [address] [place], [address] MCH (RBC) [Entitic mass] 27.6 pg Normal 27.0-32.0 [facility] Comment on above: Performed By: #### L 100.0100, L501.9100, L700.6800, L500.4050, L505.5000 ####[facility] [address] [place], [address] MCHC (RBC) [Mass/Vol] 34.0 g/dL Normal 32-36 [facility] Comment on above: Performed By: #### L 100.0100, L501.9100, L700.6800, L500.4050, L505.5000 ####[facility] [address] [place], [address] MCV (RBC) [Entitic vol] 81.1 fL Normal 81-99 [facility] Comment on above: Performed By: #### L 100.0100, L501.9100, L700.6800, L500.4050, L505.5000 ####[facility] [address] [place], [address] Monocytes/100 WBC (Bld) 7.4 % Normal 0-10 [facility] Comment on above: Performed By: #### L 100.0100, L501.9100, L700.6800, L500.4050, L505.5000 ####[facility] [address] [place], [address] Neutrophils/100 WBC (Bld) 63.9 % Normal 47-70 [facility] Comment on above: Performed By: #### L 100.0100, L501.9100, L700.6800, L500.4050, L505.5000 ####[facility] [address] [place], [address] Nucleated RBC (Bld) [#/Vol] 0 10*3/uL Normal 0-5 [facility] Comment on above: Performed By: #### L 100.0100, L501.9100, L700.6800, L500.4050, L505.5000 ####[facility] [address] [place], [address] Platelet mean volume (Bld) [Entitic vol] 9.5 fL Normal 6.2-12.0 [facility] Comment on above: Performed By: #### L 100.0100, L501.9100, L700.6800, L500.4050, L505.5000 ####[facility] [address] [place], [address] Platelets (Bld) [#/Vol] 477 10*3/uL High 150-450 [facility] Comment on above: Performed By: #### L 100.0100, L501.9100, L700.6800, L500.4050, L505.5000 ####[facility] [address] [place], [address] RBC (Bld) [#/Vol] 4.75 10*6/uL Normal 4.2-5.4 [facility] Comment on above: Performed By: #### L 100.0100, L501.9100, L700.6800, L500.4050, L505.5000 ####[facility] [address] [place], [address] RDW SD 42.3 fl Normal 35.1-43.9 [facility] Comment on above: Performed By: #### L 100.0100, L501.9100, L700.6800, L500.4050, L505.5000 ####[facility] [address] [place], [address] WBC (Bld) [#/Vol] 16.0 10*3/uL High 4.4-11.0 [facility] Comment on above: Performed By: #### L 100.0100, L501.9100, L700.6800, L500.4050, L505.5000 ####[facility] [address] [place], [address] Carbon dioxide, total [Moles /volume] in Central venous bloodOrdered By: Rosetta Amaya on 01-07-2025 CO2 [Moles/Vol] 20.7 mmol/L Low 21.0-32.0 [facility] Chloride assayOrdered By: Tiffanie Amaya on 01-07-2025 Chloride [Moles/Vol] 98 mmol/L 98-108 [facility] Comprehensive Metabolic Prof ilon 01-07-2025 Albumin [Mass/Vol] 3.9 g/dL Normal 3.5-5.0 [facility] Comment on above: Performed By: #### L 100.0100, L501.9100, L700.6800, L500.4050, L505.5000 ####[facility] [address] [place], [address] Albumin/Globulin [Mass ratio] 1.0 {ratio} Normal 0.9-2.4 [facility] Comment on above: Performed By: #### L 100.0100, L501.9100, L700.6800, L500.4050, L505.5000 ####[facility] [address] [place], [address] ALK PHOS 74 U/L Normal 35-104 [facility] Comment on above: Performed By: #### L 100.0100, L501.9100, L700.6800, L500.4050, L505.5000 ####[facility] [address] [place], [address] ALT [Catalytic activity/Vol] 17 U/L Normal <=34 [facility] Comment on above: Result Comment: Hemo lysis present, Results??could be affected.?? Performed By: #### L 100.0100, L501.9100, L700.6800, L500.4050, L505.5000 ####[facility] [address] [place], [address] AST [Catalytic activity/Vol] 35 U/L High <=31 [facility] Comment on above: Result Comment: Hemo lysis present, Results??could be affected.?? Performed By: #### L 100.0100, L501.9100, L700.6800, L500.4050, L505.5000 ####[facility] [address] [place], [address] Bilirubin [Mass/Vol] 0.64 mg/dL Normal 0.00-1.30 [facility] Comment on above: Performed By: #### L 100.0100, L501.9100, L700.6800, L500.4050, L505.5000 ####[facility] [address] [place], [address] BUN/CRE 10.4 RATIO Normal 10-20 [facility] Comment on above: Performed By: #### L 100.0100, L501.9100, L700.6800, L500.4050, L505.5000 ####[facility] [address] [place], [address] Calcium [Mass/Vol] 9.1 mg/dL Normal 7.6-11.0 [facility] Comment on above: Performed By: #### L 100.0100, L501.9100, L700.6800, L500.4050, L505.5000 ####[facility] [address] [place], [address] Chloride [Moles/Vol] 98 mmol/L Normal 98-108 [facility] Comment on above: Performed By: #### L 100.0100, L501.9100, L700.6800, L500.4050, L505.5000 ####[facility] [address] [place], [address] CO2 [Moles/Vol] 20.7 mmol/L Low 21.0-32.0 [facility] Comment on above: Performed By: #### L 100.0100, L501.9100, L700.6800, L500.4050, L505.5000 ####[facility] [address] [place], [address] Creatinine [Mass/Vol] 1.10 mg/dL Normal 0.70-1.20 [facility] Comment on above: Performed By: #### L 100.0100, L501.9100, L700.6800, L500.4050, L505.5000 ####[facility] [address] [place], [address] ECRCL 90.29 ml/min Normal 50-250 [facility] Comment on above: Performed By: #### L 100.0100, L501.9100, L700.6800, L500.4050, L505.5000 ####[facility] [address] [place], [address] GAP 18 High 5-15 [facility] Comment on above: Performed By: #### L 100.0100, L501.9100, L700.6800, L500.4050, L505.5000 ####[facility] [address] [place], [address] GFR/1.73 sq M.predicted among non-blacks MDRD (S/P/Bld) [Vol rate/Area] 68 mL/min/{1.73_m2} Normal >60 [facility] Comment on above: Result Comment: mL/m in/1.73m2 CKD-EPI Creatinine Equation (2020) Performed By: #### L 100.0100, L501.9100, L700.6800, L500.4050, L505.5000 ####[facility] [address] [place], [address] Globulin (S) [Mass/Vol] 3.8 g/dL Normal 2.2-4.2 [facility] Comment on above: Performed By: #### L 100.0100, L501.9100, L700.6800, L500.4050, L505.5000 ####[facility] [address] [place], [address] Glucose [Mass/Vol] 85 mg/dL Normal 70-99 [facility] Comment on above: Performed By: #### L 100.0100, L501.9100, L700.6800, L500.4050, L505.5000 ####[facility] [address] [place], [address] Potassium [Moles/Vol] 2.8 mmol/L Low 3.3-5.1 [facility] Comment on above: Result Comment: Hemo lysis present, Results??could be affected.?? Performed By: #### L 100.0100, L501.9100, L700.6800, L500.4050, L505.5000 ####[facility] [address] [place], [address] Sodium [Moles/Vol] 136 mmol/L Normal 133-145 [facility] Comment on above: Performed By: #### L 100.0100, L501.9100, L700.6800, L500.4050, L505.5000 ####[facility] [address] [place], [address] T PROT 7.7 g/dL Normal 5.9-8.4 [facility] Comment on above: Performed By: #### L 100.0100, L501.9100, L700.6800, L500.4050, L505.5000 ####[facility] [address] [place], [address] Urea nitrogen [Mass/Vol] 11 mg/dL Normal 4-19 [facility] Comment on above: Performed By: #### L 100.0100, L501.9100, L700.6800, L500.4050, L505.5000 ####[facility] [address] [place], [address] Emergency Department Summary on 01-07-2025 Emergency Department Summary Normal [facility] Eosinophil percentageOrdered By: Rosetta Amaya on 01-07-2025 Eosinophils/100 WBC (Bld) 0.1 % 0-5 [facility] Erythrocyte distribution wid th ratioOrdered By: Rosetta Amaya on 01-07-2025 Erythrocyte distribution width (RBC) [Ratio] 14.6 % 11.6-14.6 [facility] Erythrocyte distribution wid th standard deviationOrdered By: Rosetta Amaya on 01-07-2025 Erythrocyte distribution width (RBC) [Ratio] 42.3 fl 35.1-43.9 [facility] Glomerular filtration rate ( GFR) estimation/1.73 sq m using serum, plasma, or whole bOrdered By: Rosetta Amaya on 01-07-2025 GFR/1.73 sq M.predicted among non-blacks MDRD (S/P/Bld) [Vol rate/Area] 68 mL/min/{1.73_m2} >60 [facility] de[facility]dered By: Fabricio Guevara on 01-07-2025 Glucose [Mass/Vol] 68 mg/dL Low 74-106 [facility] H AND P Exam - Hospitaliston 01-07-2025 H&P Exam - Hospitalist Normal [facility] Hematocrit Auto (Bld) [Volum e fraction]Ordered By: Rosetta Amaya on 01-07-2025 Hematocrit (Bld) [Volume fraction] 38.5 % 37-47 [facility] Hemoglobin measurementOrdere d By: Rosetta Amaya on 01-07-2025 Hemoglobin (Bld) [Mass/Vol] 13.1 g/dL 12.0-15.0 [facility] Immature granulocytes/100 WB C Auto (Bld)Ordered By: Rosetta Amaya on 01-07-2025 Immature granulocytes/100 WBC (Bld) 0.600 % 0.0-0.9 [facility] Ketones Test strip Ql (U)Ord ered By: Rosetta Amaya on 01-07-2025 Ketones Ql (U) Negative Negative [facility] MCV (mean corpuscular volume ) determinationOrdered By: Rosetta Amaya on 01-07-2025 MCV (RBC) [Entitic vol] 81.1 fL 81-99 [facility] Mean corpuscular hemoglobin (MCH) determinationOrdered By: Rosetta Amaya on 01-07-2025 MCH (RBC) [Entitic mass] 27.6 pg 27.0-32.0 [facility] Monocyte percentageOrdered B y: Rosetta Amaya on 01-07-2025 Monocytes/100 WBC (Bld) 7.4 % 0-10 [facility] Mucus LM Ql (Urine sed)Order ed By: Rosetta Amaya on 01-07-2025 Mucus Ql (Urine sed) 1+ /hpf [facility] Neutrophil percentageOrdered By: Rosetta Amaya on 01-07-2025 Neutrophils/100 WBC (Bld) 63.9 % 47-70 [facility] Nitrite Test strip Ql (U)Ord ered By: Rosetta Amaya on 01-07-2025 Nitrite Ql (U) Negative Negative [facility] No Panel InformationOrdered By: Rosetta Amaya on 01-07-2025 Negative < 200 ng/mL [facility] 35 U/L High <32 [facility] Platelet countOrdered By: Tiffanie Amaya on 01-07-2025 Platelets (Bld) [#/Vol] 477 10*3/uL High 150-450 [facility] Potassium measurement (mass/ volume)Ordered By: Rosetta Amaya on 01-07-2025 Potassium (Unsp spec) [Mass/Vol] 2.8 mmol/L Low 3.3-5.1 [facility] ,Serum,hCG Quali.on 01-07-2025 HCG, SERUM QUAL Negative Normal [facility] Comment on above: Performed By: #### L 100.0100, L501.9100, L700.6800, L500.4050, L505.5000 ####[facility] [address] [place], [address] Protein Test strip Ql (U)Ord ered By: Rosetta Amaya on 01-07-2025 Protein Ql (U) 30 mg/dl High Negative [facility] RBC Auto (Bld) [#/Vol]Ordere d By: Rosetta Amaya on 01-07-2025 RBC (Bld) [#/Vol] 4.75 10*6/uL 4.2-5.4 [facility] Screening urine fentanyl kedar surementOrdered By: Rosetta Amaya on 01-07-2025 fentaNYL Screen Ql (U) Negative [facility] Serum beta-hCG test, qualita tiveOrdered By: Rosetta Amaya on 01-07-2025 Beta HCG ( test) Ql Negative [facility] Serum creatinine measurement (mass/volume)Ordered By: Rosetta Amaya on 01-07-2025 Creatinine [Mass/Vol] 1.10 mg/dL 0.70-1.20 [facility] Serum globulin measurementOr dered By: Rosetta Amaya on 01-07-2025 Globulin (S) [Mass/Vol] 3.8 g/dL 2.2-4.2 [facility] Serum glucose measurement (m ass/volume)Ordered By: Rosetta Amaya on 01-07-2025 Glucose [Mass/Vol] 85 mg/dL 70-99 [facility] Serum or plasma alanine jordan otransferase (ALT) measurementOrdered By: Rosetta Amaya on 01-07-2025 ALT [Catalytic activity/Vol] 17 U/L <35 [facility] Serum or plasma albumin hussein urement (mass/volume)Ordered By: Rosetta Amaya on 01-07-2025 Albumin [Mass/Vol] 3.9 g/dL 3.5-5.0 [facility] Serum or plasma albumin/glob ulin mass ratioOrdered By: Rosetta Amaya on 01-07-2025 Albumin/Globulin [Mass ratio] 1.0 {ratio} 0.9-2.4 [facility] Serum or plasma alkaline bradley sphatase measurementOrdered By: Rosetta Amaya on 01-07-2025 ALP [Catalytic activity/Vol] 74 U/L 35-104 [facility] Serum or plasma calcium hussein urement (mass/volume)Ordered By: Rosetta Amaya on 01-07-2025 Calcium [Mass/Vol] 9.1 mg/dL 7.6-11.0 [facility] Serum or plasma ethanol hussein urement (mass/volume)Ordered By: Rosetta Amaya on 01-07-2025 Ethanol [Mass/Vol] mg/dL <10.1 [facility] Serum or plasma urea nitroge n measurement (mass/volume)Ordered By: Rosetta Amaya on 01-07-2025 Urea nitrogen [Mass/Vol] 11 mg/dL 4-19 [facility] Sodium levelOrdered By: Rosetta Amaya on 01-07-2025 Sodium [Moles/Vol] 136 mmol/L 133-145 [facility] Squamous epithelial cells de tection in urine sediment by light microscopyOrdered By: Rosetta Amaya on 01-07-2025 Epithelial cells.squamous LM Ql (Urine sed) 0-5 SEEN /hpf 5-10 [facility] Total proteinOrdered By: Trista Amaya on 01-07-2025 Protein [Mass/Vol] 7.7 g/dL 5.9-8.4 [facility] Urinalysis, Completeon 01-07 BACTERIA 2+ /hpf Normal None Seen [facility] Comment on above: Order Comment: CLEAN CATCH Performed By: #### L 400.0001 ####[facility] [address] [place], [place], [id number] Mucus Ql (Urine sed) 1+ /hpf Normal [facility] Comment on above: Order Comment: CLEAN CATCH Performed By: #### L 400.0001 ####[facility] [address] [place], [address] EPI,SQUAMOUS 0-5 SEEN Normal 5-10 [facility] Comment on above: Order Comment: CLEAN CATCH Performed By: #### L 400.0001 ####[facility] [address] [place], [address] RBC 0-5 SEEN Normal 0-5 [facility] Comment on above: Order Comment: CLEAN CATCH Performed By: #### L 400.0001 ####[facility] [address] [place], [address] WBC 5-10 SEEN Normal 0-5 [facility] Comment on above: Order Comment: CLEAN CATCH Performed By: #### L 400.0001 ####[facility] [address] [place] [id number] Urine Drug Screen (VISTA)on 01-07-2025 AMPHETAMINES Negative Normal <1000 ng/mL [facility] Comment on above: Performed By: #### L 100.0100, L501.9100, L700.6800, L500.4050, L505.5000 ####[facility] [address] [place], [address] BARBITIURATES Negative Normal < 200 ng/mL [facility] Comment on above: Performed By: #### L 100.0100, L501.9100, L700.6800, L500.4050, L505.5000 ####[facility] [address] [place], [address] BENZODIAZIPINE Negative Normal < 200 ng/mL [facility] Comment on above: Performed By: #### L 100.0100, L501.9100, L700.6800, L500.4050, L505.5000 ####[facility] [address] [place], [address] BUP Ur Drug Scr Negative Normal < 200 ng/mL [facility] Comment on above: Performed By: #### L 100.0100, L501.9100, L700.6800, L500.4050, L505.5000 ####[facility] [address] [place], [place], [phone] COCAINE Negative Normal < 300 ng/mL [facility] Comment on above: Performed By: #### L 100.0100, L501.9100, L700.6800, L500.4050, L505.5000 ####[facility] [address] [place] [address] Fentanyl Negative Normal [facility] Comment on above: Performed By: #### L 100.0100, L501.9100, L700.6800, L500.4050, L505.5000 ####[facility] [address] [place] [address] METHADONE Negative Normal < 300 ng/mL [facility] Comment on above: Performed By: #### L 100.0100, L501.9100, L700.6800, L500.4050, L505.5000 ####[facility] [address] [place] [address] OPIATES Negative Normal < 300 ng/mL [facility] Comment on above: Performed By: #### L 100.0100, L501.9100, L700.6800, L500.4050, L505.5000 ####[facility] [address] [place] [address] OXYCODONE Negative Normal < 100 ng/mL [facility] Comment on above: Performed By: #### L 100.0100, L501.9100, L700.6800, L500.4050, L505.5000 ####[facility] [address] [place], [place], [phone] PCP Negative Normal < 25 ng/mL [facility] Comment on above: Performed By: #### L 100.0100, L501.9100, L700.6800, L500.4050, L505.5000 ####[facility] [address] [place], [address] THC Positive Normal < 50 ng/mL [facility] Comment on above: Result Comment: If c onfirmation testing is needed, a separate order will berequired to send out testing to the reference laboratory. Performed By: #### L 100.0100, L501.9100, L700.6800, L500.4050, L505.5000 ####[facility] [address] [place], [address] Urine clarityOrdered By: Trista Amaya on 01-07-2025 Clarity (U) Sl. Cloudy Clear [facility] Urine color determinationOrd ered By: Rosetta Amaya on 01-07-2025 Color (U) Yellow Yellow [facility] Urine glucose detectionOrder ed By: Rosetta Amaya on 01-07-2025 Glucose Ql (U) Normal mg/dl Normal [facility] Urine leukocyte esterase det ection by dipstickOrdered By: Rosetta Amaya on 01-07-2025 Leukocyte esterase Test strip Ql (U) 25 /ul High Negative [facility] Urine pHOrdered By: Rosetta mcmanus on 01-07-2025 pH (U) 6.0 [pH] 5.0 - 8.0 [facility] Urine phencyclidine (PCP) de tectionOrdered By: Rosetta Amaya on 01-07-2025 Phencyclidine Ql (U) Negative < 25 ng/mL [facility] Urine sediment bacteria coun t by microscopy (number/high power field)Ordered By: Rosetta Amaya on 01-07-2025 Bacteria LM.HPF (Urine sed) [#/Area] 2 /[HPF] None Seen [facility] Urine specific gravity measu rementOrdered By: Rosetta Amaya on 01-07-2025 Specific gravity (U) [Rel density] 1.015 1.002-1.030 [facility] Urine urobilinogen measureme ntOrdered By: Rosetta Amaya on 01-07-2025 Urobilinogen Ql (U) Normal mg/dl Normal [facility] White blood cell (WBC) count Ordered By: Rosetta Mackeyyonathan on 01-07-2025 WBC (Bld) [#/Vol] 16.0 10*3/uL High 4.4-11.0 [facility] White blood cell countOrdere d By: Rosetta Monique on 01-07-2025 White blood cell count 5-10 SEEN /hpf 0-5 [facility] Abdomen/Pelvis W IV Cont ONL Yon 01-04-2025 Abdomen/Pelvis W IV Cont ONLY Normal [facility] Absolute lymphocyte countOrd ered By: Perico Norman on 01-04-2025 Lymphocytes Auto (Unsp spec) [#/Vol] 4.04 10*3/uL 0.83-4.51 [facility] Alcohol, Blood (Medical)-Ser umon 01-04-2025 SERUM ETOH < 10.1 Normal <=10.0 [facility] Comment on above: Result Comment: This test is for medical purposes only. The legaldefinition of intoxication varies according to local law. Performed By: #### L 501.9100, L500.2500, L505.5000, L700.6800, L503.6005, L500.3400, L501.5200, L501.2450, L501.6901, L501.7300, L100.0100 ####[facility] [address] [place], [place], [id number] Amphetamine detection with 1 000 ng/mL as cutoffOrdered By: Perico Norman on 01-04-2025 Amphetamines Screen method >1000 ng/mL Ql (U) Negative < 200 ng/mL [facility] Anion gap in Serum or Plasma Ordered By: Perico Norman on 01-04-2025 Anion gap [Moles/Vol] 20 mmol/L High 5-15 [facility] Automated lymphocyte count a s percentage of total leukocytesOrdered By: Perico Norman on 01-04-2025 Lymphocytes/100 WBC Auto (Unsp spec) 27.5 % 19-41 [facility] BUN/creatinine ratioOrdered By: Perico Norman on 01-04-2025 Urea nitrogen/Creatinine [Mass ratio] 12.5 mg/mg 10- [facility] Basic Metabolic Profile (BMP )on 01-04-2025 BUN Normal 4-19 [facility] Comment on above: Result Comment: ERASTO ENT DISCHARGED. SPECIMEN NOT RECEIVED. Performed By: #### L 500.2500 ####[facility] [address] [place], [address] BUN/CRE Normal 10-20 [facility] Comment on above: Result Comment: ERASTO ENT DISCHARGED. SPECIMEN NOT RECEIVED. Performed By: #### L 500.2500 ####[facility] [address] [place], [address] Calcium Normal 7.6-11.0 [facility] Comment on above: Result Comment: ERASTO ENT DISCHARGED. SPECIMEN NOT RECEIVED. Performed By: #### L 500.2500 ####[facility] [address] [place], [address] CL Normal 98-108 [facility] Comment on above: Result Comment: ERASTO ENT DISCHARGED. SPECIMEN NOT RECEIVED. Performed By: #### L 500.2500 ####[facility] [address] [place], [address] CO2 Normal 21.0-32.0 [facility] Comment on above: Result Comment: ERASTO ENT DISCHARGED. SPECIMEN NOT RECEIVED. Performed By: #### L 500.2500 ####[facility] [address] [place], [address] CREAT,SERUM Normal 0.70-1.20 [facility] Comment on above: Result Comment: ERASTO ENT DISCHARGED. SPECIMEN NOT RECEIVED. Performed By: #### L 500.2500 ####[facility] [address] [place], [address] eGFR Normal >60 [facility] Comment on above: Result Comment: ERASTO ENT DISCHARGED. SPECIMEN NOT RECEIVED. Performed By: #### L 500.2500 ####[facility] [address] [place], [address] GAP Normal 5-15 [facility] Comment on above: Result Comment: ERASTO ENT DISCHARGED. SPECIMEN NOT RECEIVED. Performed By: #### L 500.2500 ####[facility] [address] [place], [address] GLU Normal 70-99 [facility] Comment on above: Result Comment: ERASTO ENT DISCHARGED. SPECIMEN NOT RECEIVED. Performed By: #### L 500.2500 ####[facility] [address] [place], [address] Potassium Normal 3.3-5.1 [facility] Comment on above: Result Comment: ERASTO ENT DISCHARGED. SPECIMEN NOT RECEIVED. Performed By: #### L 500.2500 ####[facility] [address] [place], [address] Basic Metabolic Profile (BMP) Normal 133-145 [facility] Comment on above: Result Comment: ERASTO ENT DISCHARGED. SPECIMEN NOT RECEIVED. Performed By: #### L 500.2500 ####[facility] [address] [place], [address] BUN/CRE 12.5 RATIO Normal 10-20 [facility] Comment on above: Performed By: #### L 501.9100, L500.2500, L505.5000, L700.6800, L503.6005, L500.3400, L501.5200, L501.2450, L501.6901, L501.7300, L100.0100 ####[facility] [address] [place], [address] Calcium [Mass/Vol] 9.3 mg/dL Normal 7.6-11.0 [facility] Comment on above: Performed By: #### L 501.9100, L500.2500, L505.5000, L700.6800, L503.6005, L500.3400, L501.5200, L501.2450, L501.6901, L501.7300, L100.0100 ####[facility] [address] [place], [address] Chloride [Moles/Vol] 102 mmol/L Normal 98-108 [facility] Comment on above: Performed By: #### L 501.9100, L500.2500, L505.5000, L700.6800, L503.6005, L500.3400, L501.5200, L501.2450, L501.6901, L501.7300, L100.0100 ####[facility] [address] [place], [address] CO2 [Moles/Vol] 16.6 mmol/L Low 21.0-32.0 [facility] Comment on above: Performed By: #### L 501.9100, L500.2500, L505.5000, L700.6800, L503.6005, L500.3400, L501.5200, L501.2450, L501.6901, L501.7300, L100.0100 ####[facility] [address] [place], [address] Creatinine [Mass/Vol] 0.93 mg/dL Normal 0.70-1.20 [facility] Comment on above: Performed By: #### L 501.9100, L500.2500, L505.5000, L700.6800, L503.6005, L500.3400, L501.5200, L501.2450, L501.6901, L501.7300, L100.0100 ####[facility] [address] [place], [address] ECRCL 105.48 ml/min Normal 50-250 [facility] Comment on above: Performed By: #### L 501.9100, L500.2500, L505.5000, L700.6800, L503.6005, L500.3400, L501.5200, L501.2450, L501.6901, L501.7300, L100.0100 ####[facility] [address] [place], [place], [id number] GAP 20 High 5-15 [facility] Comment on above: Performed By: #### L 501.9100, L500.2500, L505.5000, L700.6800, L503.6005, L500.3400, L501.5200, L501.2450, L501.6901, L501.7300, L100.0100 ####[facility] [address] [place], [address] GFR/1.73 sq M.predicted among non-blacks MDRD (S/P/Bld) [Vol rate/Area] 84 mL/min/{1.73_m2} Normal >60 [facility] Comment on above: Result Comment: mL/m in/1.73m2 CKD-EPI Creatinine Equation (2020) Performed By: #### L 501.9100, L500.2500, L505.5000, L700.6800, L503.6005, L500.3400, L501.5200, L501.2450, L501.6901, L501.7300, L100.0100 ####[facility] [address] [place], [place], [id number] Glucose [Mass/Vol] 159 mg/dL High 70-99 [facility] Comment on above: Performed By: #### L 501.9100, L500.2500, L505.5000, L700.6800, L503.6005, L500.3400, L501.5200, L501.2450, L501.6901, L501.7300, L100.0100 ####[facility] [address] [place], [place], [id number] Potassium [Moles/Vol] 3.1 mmol/L Low 3.3-5.1 [facility] Comment on above: Performed By: #### L 501.9100, L500.2500, L505.5000, L700.6800, L503.6005, L500.3400, L501.5200, L501.2450, L501.6901, L501.7300, L100.0100 ####[facility] [address] [place], [address] Sodium [Moles/Vol] 139 mmol/L Normal 133-145 [facility] Comment on above: Performed By: #### L 501.9100, L500.2500, L505.5000, L700.6800, L503.6005, L500.3400, L501.5200, L501.2450, L501.6901, L501.7300, L100.0100 ####[facility] [address] [facility] [address] [place], [place], [id number] Urea nitrogen [Mass/Vol] 12 mg/dL Normal 4-19 [facility] Comment on above: Performed By: #### L 501.9100, L500.2500, L505.5000, L700.6800, L503.6005, L500.3400, L501.5200, L501.2450, L501.6901, L501.7300, L100.0100 ####[facility] [address] [place], [place], [address] Basophil percentageOrdered B y: Perico Norman on 01-04-2025 Basophils/100 WBC (Bld) 0.3 % 0-1 [facility] Beta-Hydroxbytyrateon 2024 BETA-HYDROXYBUT 2.1 mmol/L High 0.0-0.3 [facility] Comment on above: Performed By: #### L 501.9100, L500.2500, L505.5000, L700.6800, L503.6005, L500.3400, L501.5200, L501.2450, L501.6901, L501.7300, L100.0100 ####[facility] [address] [place], [address] Beta-hydroxybutyrateOrdered By: Perico Norman on 01-04-2025 Beta hydroxybutyrate [Mass/Vol] 2.1 mmol/L High 0.0-0.3 [facility] Bilirubin directOrdered By: Perico Norman on 01-04-2025 Bilirubin.direct [Mass/Vol] 0.22 mg/dL 0.00-0.30 [facility] Bilirubin, totalOrdered By: Perico Norman on 01-04-2025 Bilirubin [Mass/Vol] 0.64 mg/dL 0.00-1.30 [facility] CBC W/Diff, Automatedon 12-11 Absolute Lymph 4.04 X10 3/uL Normal 0.83-4.51 [facility] Comment on above: Performed By: #### L 501.9100, L500.2500, L505.5000, L700.6800, L503.6005, L500.3400, L501.5200, L501.2450, L501.6901, L501.7300, L100.0100 ####[facility] [address] [place], [place], [id number] Absolute Neut 9.5 X10 3/uL High 2.0-7.7 [facility] Comment on above: Performed By: #### L 501.9100, L500.2500, L505.5000, L700.6800, L503.6005, L500.3400, L501.5200, L501.2450, L501.6901, L501.7300, L100.0100 ####[facility] [address] [place], [address] Basophils/100 WBC (Bld) 0.3 % Normal 0-1 [facility] Comment on above: Performed By: #### L 501.9100, L500.2500, L505.5000, L700.6800, L503.6005, L500.3400, L501.5200, L501.2450, L501.6901, L501.7300, L100.0100 ####[facility] [address] [facility]. [place], [place], [phone](829) Eosinophils/100 WBC (Bld) 0.0 % Normal 0-5 [facility] Comment on above: Performed By: #### L 501.9100, L500.2500, L505.5000, L700.6800, L503.6005, L500.3400, L501.5200, L501.2450, L501.6901, L501.7300, L100.0100 ####[facility] [address] [place], [address] Erythrocyte distribution width (RBC) [Ratio] 14.7 % High 11.6-14.6 [facility] Comment on above: Performed By: #### L 501.9100, L500.2500, L505.5000, L700.6800, L503.6005, L500.3400, L501.5200, L501.2450, L501.6901, L501.7300, L100.0100 ####[facility] [address] [facility] [place], [address] Hematocrit (Bld) [Volume fraction] 36.0 % Low 37-47 [facility] Comment on above: Performed By: #### L 501.9100, L500.2500, L505.5000, L700.6800, L503.6005, L500.3400, L501.5200, L501.2450, L501.6901, L501.7300, L100.0100 ####[facility] [address] [facility] [place], [address] Hemoglobin (Bld) [Mass/Vol] 12.4 g/dL Normal 12.0-15.0 [facility] Comment on above: Performed By: #### L 501.9100, L500.2500, L505.5000, L700.6800, L503.6005, L500.3400, L501.5200, L501.2450, L501.6901, L501.7300, L100.0100 ####[facility] [address] [place], [address] IG% 0.700 Normal 0.0-0.9 [facility] Comment on above: Result Comment: IG% - Immature Granulocytes (promyelocytes, myelocytes andmetamyelocytes) > 1% indicates that a LEFT SHIFT is Present. Performed By: #### L 501.9100, L500.2500, L505.5000, L700.6800, L503.6005, L500.3400, L501.5200, L501.2450, L501.6901, L501.7300, L100.0100 ####[facility] [address] [place], [address] Lymphocytes/100 WBC (Bld) 27.5 % Normal 19-41 [facility] Comment on above: Performed By: #### L 501.9100, L500.2500, L505.5000, L700.6800, L503.6005, L500.3400, L501.5200, L501.2450, L501.6901, L501.7300, L100.0100 ####[facility] [address] [place], [address] MCH (RBC) [Entitic mass] 27.7 pg Normal 27.0-32.0 [facility] Comment on above: Performed By: #### L 501.9100, L500.2500, L505.5000, L700.6800, L503.6005, L500.3400, L501.5200, L501.2450, L501.6901, L501.7300, L100.0100 ####[facility] [address] [place], [address] MCHC (RBC) [Mass/Vol] 34.4 g/dL Normal 32-36 [facility] Comment on above: Performed By: #### L 501.9100, L500.2500, L505.5000, L700.6800, L503.6005, L500.3400, L501.5200, L501.2450, L501.6901, L501.7300, L100.0100 ####[facility] [address] [place], [address] MCV (RBC) [Entitic vol] 80.5 fL Low 81-99 [facility] Comment on above: Performed By: #### L 501.9100, L500.2500, L505.5000, L700.6800, L503.6005, L500.3400, L501.5200, L501.2450, L501.6901, L501.7300, L100.0100 ####[facility] [address] [place], [place], [phone]) Monocytes/100 WBC (Bld) 6.7 % Normal 0-10 [facility] Comment on above: Performed By: #### L 501.9100, L500.2500, L505.5000, L700.6800, L503.6005, L500.3400, L501.5200, L501.2450, L501.6901, L501.7300, L100.0100 ####[facility] [address] [place], [address] Neutrophils/100 WBC (Bld) 64.8 % Normal 47-70 [facility] Comment on above: Performed By: #### L 501.9100, L500.2500, L505.5000, L700.6800, L503.6005, L500.3400, L501.5200, L501.2450, L501.6901, L501.7300, L100.0100 ####[facility] [address] [facility] [place], [address] Nucleated RBC (Bld) [#/Vol] 0 10*3/uL Normal 0-5 [facility] Comment on above: Performed By: #### L 501.9100, L500.2500, L505.5000, L700.6800, L503.6005, L500.3400, L501.5200, L501.2450, L501.6901, L501.7300, L100.0100 ####[facility] [address] [place], [address] Platelet mean volume (Bld) [Entitic vol] 10.0 fL Normal 6.2-12.0 [facility] Comment on above: Performed By: #### L 501.9100, L500.2500, L505.5000, L700.6800, L503.6005, L500.3400, L501.5200, L501.2450, L501.6901, L501.7300, L100.0100 ####[facility] [address] [place], [address] Platelets (Bld) [#/Vol] 446 10*3/uL Normal 150-450 [facility] Comment on above: Performed By: #### L 501.9100, L500.2500, L505.5000, L700.6800, L503.6005, L500.3400, L501.5200, L501.2450, L501.6901, L501.7300, L100.0100 ####[facility] [address] [place], [address] RBC (Bld) [#/Vol] 4.47 10*6/uL Normal 4.2-5.4 [facility] Comment on above: Performed By: #### L 501.9100, L500.2500, L505.5000, L700.6800, L503.6005, L500.3400, L501.5200, L501.2450, L501.6901, L501.7300, L100.0100 ####[facility] [address] [place], [place], [address] RDW SD 42.6 fl Normal 35.1-43.9 [facility] Comment on above: Performed By: #### L 501.9100, L500.2500, L505.5000, L700.6800, L503.6005, L500.3400, L501.5200, L501.2450, L501.6901, L501.7300, L100.0100 ####[facility] [address] [place], [place], [phone] WBC (Bld) [#/Vol] 14.7 10*3/uL High 4.4-11.0 [facility] Comment on above: Performed By: #### L 501.9100, L500.2500, L505.5000, L700.6800, L503.6005, L500.3400, L501.5200, L501.2450, L501.6901, L501.7300, L100.0100 ####[facility] [address] [place], [place], [phone] CO2 (BldV) [Moles/Vol]Ordere d By: Perico Norman on 01-04-2025 CO2 [Moles/Vol] 20 mmol/L Low 23-33 [facility] Carbon dioxide, total [Moles /volume] in Central venous bloodOrdered By: Perico Norman on 01-04-2025 CO2 [Moles/Vol] 16.6 mmol/L Low 21.0-32.0 [facility] Chloride assayOrdered By: Nadine Norman on 01-04-2025 Chloride [Moles/Vol] 102 mmol/L 98-108 [facility] Emergency Department Summary on 01-04-2025 Emergency Department Summary Normal [facility] Eosinophil percentageOrdered By: Perico Norman on 01-04-2025 Eosinophils/100 WBC (Bld) 0.0 % 0-5 [facility] Erythrocyte distribution wid th ratioOrdered By: Perico Norman on 01-04-2025 Erythrocyte distribution width (RBC) [Ratio] 14.7 % High 11.6-14.6 [facility] Erythrocyte distribution wid th standard deviationOrdered By: Perico Norman on 01-04-2025 Erythrocyte distribution width (RBC) [Ratio] 42.6 fl 35.1-43.9 [facility] Glomerular filtration rate ( GFR) estimation/1.73 sq m using serum, plasma, or whole bOrdered By: Perico Norman on 01-04-2025 GFR/1.73 sq M.predicted among non-blacks MDRD (S/P/Bld) [Vol rate/Area] 84 mL/min/{1.73_m2} >60 [facility] Hematocrit Auto (Bld) [Volum e fraction]Ordered By: Perico Norman on 01-04-2025 Hematocrit (Bld) [Volume fraction] 36.0 % Low 37-47 [facility] Hemoglobin measurementOrdere d By: Perico Norman on 01-04-2025 Hemoglobin (Bld) [Mass/Vol] 12.4 g/dL 12.0-15.0 [facility] Immature granulocytes/100 WB C Auto (Bld)Ordered By: Perico Norman on 01-04-2025 Immature granulocytes/100 WBC (Bld) 0.700 % 0.0-0.9 [facility] Lactic Acidon 01-04-2025 Lactate [Moles/Vol] 1.6 mmol/L Normal 0.0-2.0 [facility] Comment on above: Order Comment: Y Performed By: #### L 501.9100, L500.2500, L505.5000, L700.6800, L503.6005, L500.3400, L501.5200, L501.2450, L501.6901, L501.7300, L100.0100 ####[facility] [address] [place], [address] Lipaseon 01-04-2025 Lipase [Catalytic activity/Vol] 32 U/L Normal 13-75 [facility] Comment on above: Result Comment: Adam faulkner note:LIPASE revised reference range effective 22.New Lipase methodology. Expected to produce lower valuesthan the previous assay method.NEW Reference Range: 13 - 75 U/L Performed By: #### L 501.9100, L500.2500, L505.5000, L700.6800, L503.6005, L500.3400, L501.5200, L501.2450, L501.6901, L501.7300, L100.0100 ####[facility] [address] [place], [address] Liver Profileon 01-04-2025 Albumin [Mass/Vol] 4.2 g/dL Normal 3.5-5.0 [facility] Comment on above: Performed By: #### L 501.9100, L500.2500, L505.5000, L700.6800, L503.6005, L500.3400, L501.5200, L501.2450, L501.6901, L501.7300, L100.0100 ####[facility] [address] [place], [place], [phone] ALK PHOS 70 U/L Normal 35-104 [facility] Comment on above: Performed By: #### L 501.9100, L500.2500, L505.5000, L700.6800, L503.6005, L500.3400, L501.5200, L501.2450, L501.6901, L501.7300, L100.0100 ####[facility] [address] [place], [place], [address] ALT [Catalytic activity/Vol] 9 U/L Normal <=34 [facility] Comment on above: Performed By: #### L 501.9100, L500.2500, L505.5000, L700.6800, L503.6005, L500.3400, L501.5200, L501.2450, L501.6901, L501.7300, L100.0100 ####[facility] [address] [place], [address] AST [Catalytic activity/Vol] 17 U/L Normal <=31 [facility] Comment on above: Performed By: #### L 501.9100, L500.2500, L505.5000, L700.6800, L503.6005, L500.3400, L501.5200, L501.2450, L501.6901, L501.7300, L100.0100 ####[facility] [address] [place], [address] Bilirubin [Mass/Vol] 0.64 mg/dL Normal 0.00-1.30 [facility] Comment on above: Performed By: #### L 501.9100, L500.2500, L505.5000, L700.6800, L503.6005, L500.3400, L501.5200, L501.2450, L501.6901, L501.7300, L100.0100 ####[facility] [address] [place], [address] Bilirubin.direct [Mass/Vol] 0.22 mg/dL Normal 0.00-0.30 [facility] Comment on above: Performed By: #### L 501.9100, L500.2500, L505.5000, L700.6800, L503.6005, L500.3400, L501.5200, L501.2450, L501.6901, L501.7300, L100.0100 ####[facility] [address] [place], [address] Globulin (S) [Mass/Vol] 3.8 g/dL Normal 2.2-4.2 [facility] Comment on above: Performed By: #### L 501.9100, L500.2500, L505.5000, L700.6800, L503.6005, L500.3400, L501.5200, L501.2450, L501.6901, L501.7300, L100.0100 ####[facility] [address] [place], [address] T PROT 8.0 g/dL Normal 5.9-8.4 [facility] Comment on above: Performed By: #### L 501.9100, L500.2500, L505.5000, L700.6800, L503.6005, L500.3400, L501.5200, L501.2450, L501.6901, L501.7300, L100.0100 ####[facility] [address] [place], [place], [id number] MCV (mean corpuscular volume ) determinationOrdered By: Perico Norman on 01-04-2025 MCV (RBC) [Entitic vol] 80.5 fL Low 81-99 [facility] Magnesiumon 01-04-2025 Magnesium [Mass/Vol] 1.8 mg/dL Normal 1.5-2.2 [facility] Comment on above: Performed By: #### L 501.9100, L500.2500, L505.5000, L700.6800, L503.6005, L500.3400, L501.5200, L501.2450, L501.6901, L501.7300, L100.0100 ####[facility] [address] [facility]. [place], [place], [id number] Magnesium measurement (mass/ volume)Ordered By: Perico Norman on 01-04-2025 Magnesium (Unsp spec) [Mass/Vol] 1.8 mg/dL 1.5-2.2 [facility] Mean corpuscular hemoglobin (MCH) determinationOrdered By: Perico Norman on 01-04-2025 MCH (RBC) [Entitic mass] 27.7 pg 27.0-32.0 [facility] Monocyte percentageOrdered B y: Perico Norman on 01-04-2025 Monocytes/100 WBC (Bld) 6.7 % 0-10 [facility] Neutrophil percentageOrdered By: Perico Norman on 01-04-2025 Neutrophils/100 WBC (Bld) 64.8 % 47-70 [facility] No Panel InformationOrdered By: Perico Norman on 01-04-2025 Negative < 200 ng/mL [facility] ESTRELLA [facility] Not entered [facility] 17 U/L <32 [facility] Osmolality, Serumon 01-05-20 25 OSMOLALITY,SER 292 mOsm/KG Normal 275-295 [facility] Comment on above: Performed By: #### L 501.9100, L500.2500, L505.5000, L700.6800, L503.6005, L500.3400, L501.5200, L501.2450, L501.6901, L501.7300, L100.0100 ####[facility] [address] [place], [place], [phone]) Platelet countOrdered By: Nadine Norman on 01-04-2025 Platelets (Bld) [#/Vol] 446 10*3/uL 150-450 [facility] Potassium measurement (mass/ volume)Ordered By: Perico Norman on 01-04-2025 Potassium (Unsp spec) [Mass/Vol] 3.1 mmol/L Low 3.3-5.1 [facility] ,Serum,hCG Quali.on 01-04-2025 HCG, SERUM QUAL Negative Normal [facility] Comment on above: Performed By: #### L 501.9100, L500.2500, L505.5000, L700.6800, L503.6005, L500.3400, L501.5200, L501.2450, L501.6901, L501.7300, L100.0100 ####[facility] [address] [place], [place], [phone]) RBC Auto (Bld) [#/Vol]Ordere d By: Perico Norman on 01-04-2025 RBC (Bld) [#/Vol] 4.47 10*6/uL 4.2-5.4 [facility] Screening urine fentanyl kedar surementOrdered By: Perico Norman on 01-04-2025 fentaNYL Screen Ql (U) Negative [facility] Serum beta-hCG test, qualita tiveOrdered By: Perico Norman on 01-04-2025 Beta HCG ( test) Ql Negative [facility] Serum creatinine measurement (mass/volume)Ordered By: Perico Norman on 01-04-2025 Creatinine [Mass/Vol] 0.93 mg/dL 0.70-1.20 [facility] Serum globulin measurementOr dered By: Perico Norman on 01-04-2025 Globulin (S) [Mass/Vol] 3.8 g/dL 2.2-4.2 [facility] Serum glucose measurement (m ass/volume)Ordered By: Perico Norman on 01-04-2025 Glucose [Mass/Vol] 159 mg/dL High 70-99 [facility] Serum or plasma alanine jordan otransferase (ALT) measurementOrdered By: Perico Norman on 01-04-2025 ALT [Catalytic activity/Vol] 9 U/L <35 [facility] Serum or plasma albumin hussein urement (mass/volume)Ordered By: Perico Norman on 01-04-2025 Albumin [Mass/Vol] 4.2 g/dL 3.5-5.0 [facility] Serum or plasma alkaline bradley sphatase measurementOrdered By: Perico Norman on 01-04-2025 ALP [Catalytic activity/Vol] 70 U/L 35-104 [facility] Serum or plasma calcium hussein urement (mass/volume)Ordered By: Perico Norman on 01-04-2025 Calcium [Mass/Vol] 9.3 mg/dL 7.6-11.0 [facility] Serum or plasma ethanol hussein urement (mass/volume)Ordered By: Perico Norman on 01-04-2025 Ethanol [Mass/Vol] mg/dL <10.1 [facility] Serum or plasma urea nitroge n measurement (mass/volume)Ordered By: Perico Norman on 01-04-2025 Urea nitrogen [Mass/Vol] 12 mg/dL 4-19 [facility] Sodium levelOrdered By: Geoffrey Norman on 01-04-2025 Sodium [Moles/Vol] 139 mmol/L 133-145 [facility] Total proteinOrdered By: Bakari Norman on 01-04-2025 Protein [Mass/Vol] 8.0 g/dL 5.9-8.4 [facility] Urine Drug Screen (VISTA)on 01-04-2025 AMPHETAMINES Negative Normal <1000 ng/mL [facility] Comment on above: Performed By: #### L 501.9100, L500.2500, L505.5000, L700.6800, L503.6005, L500.3400, L501.5200, L501.2450, L501.6901, L501.7300, L100.0100 ####[facility] [address] [place], [address] BARBITIURATES Negative Normal < 200 ng/mL [facility] Comment on above: Performed By: #### L 501.9100, L500.2500, L505.5000, L700.6800, L503.6005, L500.3400, L501.5200, L501.2450, L501.6901, L501.7300, L100.0100 ####[facility] [address] [place], [address] BENZODIAZIPINE Negative Normal < 200 ng/mL [facility] Comment on above: Performed By: #### L 501.9100, L500.2500, L505.5000, L700.6800, L503.6005, L500.3400, L501.5200, L501.2450, L501.6901, L501.7300, L100.0100 ####[facility] [address] [place], [address] BUP Ur Drug Scr Negative Normal < 200 ng/mL [facility] Comment on above: Performed By: #### L 501.9100, L500.2500, L505.5000, L700.6800, L503.6005, L500.3400, L501.5200, L501.2450, L501.6901, L501.7300, L100.0100 ####[facility] [address] [place], [place], [id number] COCAINE Negative Normal < 300 ng/mL [facility] Comment on above: Performed By: #### L 501.9100, L500.2500, L505.5000, L700.6800, L503.6005, L500.3400, L501.5200, L501.2450, L501.6901, L501.7300, L100.0100 ####[facility] [address] [place], [place], [phone] Fentanyl Negative Normal [facility] Comment on above: Performed By: #### L 501.9100, L500.2500, L505.5000, L700.6800, L503.6005, L500.3400, L501.5200, L501.2450, L501.6901, L501.7300, L100.0100 ####[facility] [address] [facility] [address] [place], [place], [id number] METHADONE Negative Normal < 300 ng/mL [facility] Comment on above: Performed By: #### L 501.9100, L500.2500, L505.5000, L700.6800, L503.6005, L500.3400, L501.5200, L501.2450, L501.6901, L501.7300, L100.0100 ####[facility] [address] [place], [address] OPIATES Positive Normal < 300 ng/mL [facility] Comment on above: Result Comment: If c onfirmation testing is needed, a separate order will berequired to send out testing to the reference laboratory. Performed By: #### L 501.9100, L500.2500, L505.5000, L700.6800, L503.6005, L500.3400, L501.5200, L501.2450, L501.6901, L501.7300, L100.0100 ####[facility] [address] [place], [address] OXYCODONE Negative Normal < 100 ng/mL [facility] Comment on above: Performed By: #### L 501.9100, L500.2500, L505.5000, L700.6800, L503.6005, L500.3400, L501.5200, L501.2450, L501.6901, L501.7300, L100.0100 ####[facility] [address] [place], [address] PCP Negative Normal < 25 ng/mL [facility] Comment on above: Performed By: #### L 501.9100, L500.2500, L505.5000, L700.6800, L503.6005, L500.3400, L501.5200, L501.2450, L501.6901, L501.7300, L100.0100 ####[facility] [address] [place], [address] THC Negative Normal < 50 ng/mL [facility] Comment on above: Performed By: #### L 501.9100, L500.2500, L505.5000, L700.6800, L503.6005, L500.3400, L501.5200, L501.2450, L501.6901, L501.7300, L100.0100 ####[facility] [address] [place], [address] Urine phencyclidine (PCP) de tectionOrdered By: Perico Norman on 01-04-2025 Phencyclidine Ql (U) Negative < 25 ng/mL [facility] Venous Blood Gason Blood Gas Type ESTRELLA Normal [facility] Comment on above: Performed By: #### L 9000.0810 ####[facility] [address] [place], [address] CO2 [Moles/Vol] 20 mmol/L Low 23-33 [facility] Comment on above: Performed By: #### L 9000.0810 ####[facility] [address] [place], [address] HCO3 (Bld) [Moles/Vol] 19 mmol/L Low 22-26 [facility] Comment on above: Performed By: #### L 8999.0810 ####[facility] [address] [place], [address] O2 Delivery Dev Not entered Normal [facility] Comment on above: Performed By: #### L 0.0810 ####[facility] [address] [place], [address] SITE Not entered Normal [facility] Comment on above: Performed By: #### L 0.0810 ####[facility] [address] [place], [address] VBG BE -4 mmol/L Low -1.0-3.5 [facility] Comment on above: Performed By: #### L 8999.0810 ####[facility] [address] [place], [address] VBG pCO2 23.6 mmHg Low 41-51 [facility] Comment on above: Performed By: #### L 900.0810 ####[facility] [address] [place], [address] VBG pH 7.52 High 7.32-7.42 [facility] Comment on above: Performed By: #### L 900.0810 ####[facility] [address] [place], [address] VBG PO2 49 mmHg High 25-40 [facility] Comment on above: Performed By: #### L 900.0810 ####[facility] [address] [place], [place], [address] VBG SO2 89 High 50-70 [facility] Comment on above: Performed By: #### L 9000.0810 ####[facility] [address] [place], [place], [phone] Venous blood base excess kedar surementOrdered By: Perico Norman on 01-04-2025 Base excess Calc (BldV) [Moles/Vol] -4 mmol/L Low -1.0-3.5 [facility] Venous blood bicarbonate kedar surementOrdered By: Perico Norman on 01-04-2025 HCO3 (Bld) [Moles/Vol] 19 mmol/L Low 22-26 [facility] Venous blood pH measurementO rdered By: Perico Norman on 01-04-2025 pH (BldV) 7.52 [pH] High 7.32-7.42 [facility] Venous blood partial pressur e of carbon dioxide measurementOrdered By: Perico Norman on 01-04-2025 CO2 (BldV) [Partial pressure] 23.6 mm[Hg] Low 41-51 [facility] Venous blood partial pressur e of oxygen measurementOrdered By: Perico Norman on 01-04-2025 Oxygen (BldV) [Partial pressure] 49 mm[Hg] High 25-40 [facility] White blood cell (WBC) count Ordered By: Perico Norman on 01-04-2025 WBC (Bld) [#/Vol] 14.7 10*3/uL High 4.4-11.0 [facility] Absolute lymphocyte countOrd ered By: Poli Barfield on 01-02-2025 Lymphocytes Auto (Unsp spec) [#/Vol] 2.92 10*3/uL 0.83-4.51 [facility] Anion gap in Serum or Plasma Ordered By: Poli Barfield on 01-02-2025 Anion gap [Moles/Vol] 16 mmol/L High 5-15 [facility] Automated lymphocyte count a s percentage of total leukocytesOrdered By: Poli Barfield on 01-02-2025 Lymphocytes/100 WBC Auto (Unsp spec) 26.2 % 19-41 [facility] BUN/creatinine ratioOrdered By: Poli Barfield on 01-02-2025 Urea nitrogen/Creatinine [Mass ratio] 4.9 mg/mg Low 10-20 [facility] Basophil percentageOrdered B y: Poli Barfield on 01-02-2025 Basophils/100 WBC (Bld) 0.3 % 0-1 [facility] Bedside Glucoseon 01-02-2025 FINGERSTICK GLU 142 mg/dL High 74-106 [facility] Comment on above: Result Comment: B[facility] [place] OF PATIENT CARE PER NURSING PROTOCOL Performed By: #### L 501.080 ####[facility] [address] [place], [address] Beta-Hydroxbytyrateon 2024 BETA-HYDROXYBUT 1.2 mmol/L High 0.0-0.3 [facility] Comment on above: Performed By: #### L 100.0100, L500.4050, L501.6901, L501.2450 ####[facility] [address] [place], [address] Beta-hydroxybutyrateOrdered By: Poli Barfield on 01-02-2025 Beta hydroxybutyrate [Mass/Vol] 1.2 mmol/L High 0.0-0.3 [facility] Bilirubin, totalOrdered By: Poli Barfield on 01-02-2025 Bilirubin [Mass/Vol] 0.51 mg/dL 0.00-1.30 [facility] CBC W/Diff, Automatedon 12-11 Absolute Lymph 2.92 X10 3/uL Normal 0.83-4.51 [facility] Comment on above: Performed By: #### L 100.0100, L500.4050, [id number], L501.2450 ####[facility] [address] [place], [address] Absolute Neut 7.3 X10 3/uL Normal 2.0-7.7 [facility] Comment on above: Performed By: #### L 100.0100, [id number], [id number], [id number] ####[facility] [address] [place], [address] Basophils/100 WBC (Bld) 0.3 % Normal 0-1 [facility] Comment on above: Performed By: #### L 100.0100, [id number], [id number], [id number] ####[facility] [address] [place], [address] Eosinophils/100 WBC (Bld) 0.1 % Normal 0-5 [facility] Comment on above: Performed By: #### L 100.0100, L500.4050, L501.6901, L501.2450 ####[facility] [address] [place], [address] Erythrocyte distribution width (RBC) [Ratio] 14.3 % Normal 11.6-14.6 [facility] Comment on above: Performed By: #### L 100.0100, L500.4050, L501.6901, L501.2450 ####[facility] [address] [place], [address] Hematocrit (Bld) [Volume fraction] 36.1 % Low 37-47 [facility] Comment on above: Performed By: #### L 100.0100, L500.4050, L501.6901, L501.2450 ####[facility] [address] [place], [address] Hemoglobin (Bld) [Mass/Vol] 12.2 g/dL Normal 12.0-15.0 [facility] Comment on above: Performed By: #### L 100.0100, L500.4050, L501.6901, L501.2450 ####[facility] [address] [place], [address] IG% 0.800 Normal 0.0-0.9 [facility] Comment on above: Result Comment: IG% - Immature Granulocytes (promyelocytes, myelocytes andmetamyelocytes) > 1% indicates that a LEFT SHIFT is Present. Performed By: #### L 100.0100, L500.4050, L501.6901, L501.2450 ####[facility] [address] [place], [address] Lymphocytes/100 WBC (Bld) 26.2 % Normal 19-41 [facility] Comment on above: Performed By: #### L 100.0100, L500.4050, L501.6901, L501.2450 ####[facility] [address] [place], [address] MCH (RBC) [Entitic mass] 27.7 pg Normal 27.0-32.0 [facility] Comment on above: Performed By: #### L 100.0100, L500.4050, L501.6901, L501.2450 ####[facility] [address] [place], [address] MCHC (RBC) [Mass/Vol] 33.8 g/dL Normal 32-36 [facility] Comment on above: Performed By: #### L 100.0100, L500.4050, L501.6901, L501.2450 ####[facility] [address] [place], [address] MCV (RBC) [Entitic vol] 82.0 fL Normal 81-99 [facility] Comment on above: Performed By: #### L 100.0100, L500.4050, L501.6901, L501.2450 ####[facility] [address] [place], [address] Monocytes/100 WBC (Bld) 6.9 % Normal 0-10 [facility] Comment on above: Performed By: #### L 100.0100, L500.4050, L501.6901, L501.2450 ####[facility] [address] [place], [address] Neutrophils/100 WBC (Bld) 65.7 % Normal 47-70 [facility] Comment on above: Performed By: #### L 100.0100, L500.4050, L501.6901, L501.2450 ####[facility] [address] [place], [address] Nucleated RBC (Bld) [#/Vol] 0 10*3/uL Normal 0-5 [facility] Comment on above: Performed By: #### L 100.0100, L500.4050, L501.6901, L501.2450 ####[facility] [address] [place], [address] Platelet mean volume (Bld) [Entitic vol] 9.4 fL Normal 6.2-12.0 [facility] Comment on above: Performed By: #### L 100.0100, L500.4050, L501.6901, L501.2450 ####[facility] [address] [place], [address] Platelets (Bld) [#/Vol] 403 10*3/uL Normal 150-450 [facility] Comment on above: Performed By: #### L 100.0100, L500.4050, L501.6901, L501.2450 ####[facility] [address] [place], [address] RBC (Bld) [#/Vol] 4.40 10*6/uL Normal 4.2-5.4 [facility] Comment on above: Performed By: #### L 100.0100, L500.4050, L501.6901, L501.2450 ####[facility] [address] [place], [address] RDW SD 41.6 fl Normal 35.1-43.9 [facility] Comment on above: Performed By: #### L 100.0100, L500.4050, L501.6901, L501.2450 ####[facility] [address] [place], [address] WBC (Bld) [#/Vol] 11.2 10*3/uL High 4.4-11.0 [facility] Comment on above: Performed By: #### L 100.0100, L500.4050, L501.6901, L501.2450 ####[facility] [address] [place], [address] Carbon dioxide, total [Moles /volume] in Central venous bloodOrdered By: Poli Barfield on 01-02-2025 CO2 [Moles/Vol] 18.1 mmol/L Low 21.0-32.0 [facility] Chloride assayOrdered By: Demetrio Barfield on 01-02-2025 Chloride [Moles/Vol] 104 mmol/L 98-108 [facility] Comprehensive Metabolic Prof ilon 01-02-2025 Albumin [Mass/Vol] 4.0 g/dL Normal 3.5-5.0 [facility] Comment on above: Performed By: #### L 100.0100, L500.4050, L501.6901, L501.2450 ####[facility] [address] [place], [address] Albumin/Globulin [Mass ratio] 1.1 {ratio} Normal 0.9-2.4 [facility] Comment on above: Performed By: #### L 100.0100, L500.4050, L501.6901, L501.2450 ####[facility] [address] [place], [address] ALK PHOS 72 U/L Normal 35-104 [facility] Comment on above: Performed By: #### L 100.0100, L500.4050, L501.6901, L501.2450 ####[facility] [address] [place], [address] ALT [Catalytic activity/Vol] 13 U/L Normal <=34 [facility] Comment on above: Performed By: #### L 100.0100, L500.4050, L501.6901, L501.2450 ####[facility] [address] [place], [address] AST [Catalytic activity/Vol] 17 U/L Normal <=31 [facility] Comment on above: Performed By: #### L 100.0100, L500.4050, L501.6901, L501.2450 ####[facility] [address] [place], [address] Bilirubin [Mass/Vol] 0.51 mg/dL Normal 0.00-1.30 [facility] Comment on above: Performed By: #### L 100.0100, L500.4050, L501.6901, L501.2450 ####[facility] [address] [place], [address] BUN/CRE 4.9 RATIO Low 10-20 [facility] Comment on above: Performed By: #### L 100.0100, L500.4050, L501.6901, L501.2450 ####[facility] [address] [place], [address] Calcium [Mass/Vol] 9.4 mg/dL Normal 7.6-11.0 [facility] Comment on above: Performed By: #### L 100.0100, L500.4050, L501.6901, L501.2450 ####[facility] [address] [place], [address] Chloride [Moles/Vol] 104 mmol/L Normal 98-108 [facility] Comment on above: Performed By: #### L 100.0100, L500.4050, L501.6901, L501.2450 ####[facility] [address] [place], [address] CO2 [Moles/Vol] 18.1 mmol/L Low 21.0-32.0 [facility] Comment on above: Performed By: #### L 100.0100, L500.4050, L501.6901, L501.2450 ####[facility] [address] [place], [address] Creatinine [Mass/Vol] 0.91 mg/dL Normal 0.70-1.20 [facility] Comment on above: Performed By: #### L 100.0100, L500.4050, L501.6901, L501.2450 ####[facility] [address] [place], [address] ECRCL 109.85 ml/min Normal 50-250 [facility] Comment on above: Performed By: #### L 100.0100, L500.4050, L501.6901, L501.2450 ####[facility] [address] [place], [address] GAP 16 High 5-15 [facility] Comment on above: Performed By: #### L 100.0100, L500.4050, L501.6901, L501.2450 ####[facility] [address] [place], [address] GFR/1.73 sq M.predicted among non-blacks MDRD (S/P/Bld) [Vol rate/Area] 86 mL/min/{1.73_m2} Normal >60 [facility] Comment on above: Result Comment: mL/m in/1.73m2 CKD-EPI Creatinine Equation (2020) Performed By: #### L 100.0100, L500.4050, L501.6901, L501.2450 ####[facility] [address] [place], [address] Globulin (S) [Mass/Vol] 3.8 g/dL Normal 2.2-4.2 [facility] Comment on above: Performed By: #### L 100.0100, L500.4050, L501.6901, L501.2450 ####[facility] [address] [place], [address] Glucose [Mass/Vol] 135 mg/dL High 70-99 [facility] Comment on above: Performed By: #### L 100.0100, L500.4050, L501.6901, L501.2450 ####[facility] [address] [place], [address] Potassium [Moles/Vol] 3.4 mmol/L Normal 3.3-5.1 [facility] Comment on above: Performed By: #### L 100.0100, L500.4050, L501.6901, L501.2450 ####[facility] [address] [place], [address] Sodium [Moles/Vol] 139 mmol/L Normal 133-145 [facility] Comment on above: Performed By: #### L 100.0100, L500.4050, L501.6901, L501.2450 ####[facility] [address] [place], [address] T PROT 7.8 g/dL Normal 5.9-8.4 [facility] Comment on above: Performed By: #### L 100.0100, L500.4050, L501.6901, L501.2450 ####[facility] [address] [place], [address] Urea nitrogen [Mass/Vol] 5 mg/dL Normal 4-19 [facility] Comment on above: Performed By: #### L 100.0100, L500.4050, L501.6901, L501.2450 ####[facility] [address] [place], [address] Emergency Department Summary on 01-02-2025 Emergency Department Summary Normal [facility] Eosinophil percentageOrdered By: Poli Barfield on 01-02-2025 Eosinophils/100 WBC (Bld) 0.1 % 0-5 [facility] Erythrocyte distribution wid th ratioOrdered By: Poli Barfield on 01-02-2025 Erythrocyte distribution width (RBC) [Ratio] 14.3 % 11.6-14.6 [facility] Erythrocyte distribution wid th standard deviationOrdered By: Poli Barfield on 01-02-2025 Erythrocyte distribution width (RBC) [Ratio] 41.6 fl 35.1-43.9 [facility] Glomerular filtration rate ( GFR) estimation/1.73 sq m using serum, plasma, or whole bOrdered By: Poli Barfield on 01-02-2025 GFR/1.73 sq M.predicted among non-blacks MDRD (S/P/Bld) [Vol rate/Area] 86 mL/min/{1.73_m2} >60 [facility] By: Poli Barfield on 01-02-2025 Glucose [Mass/Vol] 142 mg/dL High 74-106 [facility] Hematocrit Auto (Bld) [Volum e fraction]Ordered By: Poli Barfield on 01-02-2025 Hematocrit (Bld) [Volume fraction] 36.1 % Low 37-47 [facility] Hemoglobin measurementOrdere d By: Poli Barfield on 01-02-2025 Hemoglobin (Bld) [Mass/Vol] 12.2 g/dL 12.0-15.0 [facility] Immature granulocytes/100 WB C Auto (Bld)Ordered By: Poli Barfield on 01-02-2025 Immature granulocytes/100 WBC (Bld) 0.800 % 0.0-0.9 [facility] Lipaseon 01-02-2025 Lipase [Catalytic activity/Vol] 27 U/L Normal 13-75 [facility] Comment on above: Result Comment: Adam faulkner note:LIPASE revised reference range effective 22.New Lipase methodology. Expected to produce lower valuesthan the previous assay method.NEW Reference Range: 13 - 75 U/L Performed By: #### L 100.0100, L500.4050, L501.6901, L501.2450 ####[facility] [address] [place], [address] MCV (mean corpuscular volume ) determinationOrdered By: Poli Barfield on 01-02-2025 MCV (RBC) [Entitic vol] 82.0 fL 81-99 [facility] Mean corpuscular hemoglobin (MCH) determinationOrdered By: Poli Barfield on 01-02-2025 MCH (RBC) [Entitic mass] 27.7 pg 27.0-32.0 [facility] Monocyte percentageOrdered B y: Poli Barfield on 01-02-2025 Monocytes/100 WBC (Bld) 6.9 % 0-10 [facility] Neutrophil percentageOrdered By: Poli Barfield on 01-02-2025 Neutrophils/100 WBC (Bld) 65.7 % 47-70 [facility] No Panel InformationOrdered By: Poli Barfield on 01-02-2025 17 U/L <32 [facility] Platelet countOrdered By: Demetrio Barfield on 01-02-2025 Platelets (Bld) [#/Vol] 403 10*3/uL 150-450 [facility] Potassium measurement (mass/ volume)Ordered By: Poli Barfield on 01-02-2025 Potassium (Unsp spec) [Mass/Vol] 3.4 mmol/L 3.3-5.1 [facility] RBC Auto (Bld) [#/Vol]Ordere d By: Poli Barfield on 01-02-2025 RBC (Bld) [#/Vol] 4.40 10*6/uL 4.2-5.4 [facility] Serum creatinine measurement (mass/volume)Ordered By: Poli Barfield on 01-02-2025 Creatinine [Mass/Vol] 0.91 mg/dL 0.70-1.20 [facility] Serum globulin measurementOr dered By: Poli Barfield on 01-02-2025 Globulin (S) [Mass/Vol] 3.8 g/dL 2.2-4.2 [facility] Serum glucose measurement (m ass/volume)Ordered By: Poli Barfield on 01-02-2025 Glucose [Mass/Vol] 135 mg/dL High 70-99 [facility] Serum or plasma alanine jordan otransferase (ALT) measurementOrdered By: Poli Barfield on 01-02-2025 ALT [Catalytic activity/Vol] 13 U/L <35 [facility] Serum or plasma albumin hussein urement (mass/volume)Ordered By: Poli Barfield on 01-02-2025 Albumin [Mass/Vol] 4.0 g/dL 3.5-5.0 [facility] Serum or plasma albumin/glob ulin mass ratioOrdered By: Poli Barfield on 01-02-2025 Albumin/Globulin [Mass ratio] 1.1 {ratio} 0.9-2.4 [facility] Serum or plasma alkaline bradley sphatase measurementOrdered By: Poli Barfield on 01-02-2025 ALP [Catalytic activity/Vol] 72 U/L 35-104 [facility] Serum or plasma calcium hussein urement (mass/volume)Ordered By: Poli Barfield on 01-02-2025 Calcium [Mass/Vol] 9.4 mg/dL 7.6-11.0 [facility] Serum or plasma urea nitroge n measurement (mass/volume)Ordered By: Poli Barfield on 01-02-2025 Urea nitrogen [Mass/Vol] 5 mg/dL 4-19 [facility] Sodium levelOrdered By: Poli Barfield on 01-02-2025 Sodium [Moles/Vol] 139 mmol/L 133-145 [facility] Total proteinOrdered By: Devon Barfield on 01-02-2025 Protein [Mass/Vol] 7.8 g/dL 5.9-8.4 [facility] White blood cell (WBC) count Ordered By: Poli Barfield on 01-02-2025 WBC (Bld) [#/Vol] 11.2 10*3/uL High 4.4-11.0 [facility] Anion gap in Serum or Plasma Ordered By: Dewayne Duff on 01-01-2025 Anion gap [Moles/Vol] 9 mmol/L 5-15 [facility] BUN/creatinine ratioOrdered By: Dewayne Duff on 01-01-2025 Urea nitrogen/Creatinine [Mass ratio] 6.1 mg/mg Low 10-20 [facility] Basic Metabolic Profile (BMP )on 01-01-2025 BUN Normal 4-19 [facility] Comment on above: Order Comment: Call MD with results STAT Result Comment: Canc elled via OM: MD Ordered Performed By: #### L 500.2500 ####[facility] [address] [place], [address] BUN/CRE Normal 10-20 [facility] Comment on above: Order Comment: Call MD with results STAT Result Comment: Canc elled via OM: MD Ordered Performed By: #### L 500.2500 ####[facility] [address] [place], [address] Calcium Normal 7.6-11.0 [facility] Comment on above: Order Comment: Call MD with results STAT Result Comment: Canc elled via OM: MD Ordered Performed By: #### L 500.2500 ####[facility] [address] [place], [address] CL Normal 98-108 [facility] Comment on above: Order Comment: Call MD with results STAT Result Comment: Canc elled via OM: MD Ordered Performed By: #### L 500.2500 ####[facility] [address] [place], [address] CO2 Normal 21.0-32.0 [facility] Comment on above: Order Comment: Call MD with results STAT Result Comment: Canc elled via OM: MD Ordered Performed By: #### L 500.2500 ####[facility] [address] [place], [address] CREAT,SERUM Normal 0.70-1.20 [facility] Comment on above: Order Comment: Call MD with results STAT Result Comment: Canc elled via OM: MD Ordered Performed By: #### L 500.2500 ####[facility] [address] [place], [address] eGFR Normal >60 [facility] Comment on above: Order Comment: Call MD with results STAT Result Comment: Canc elled via OM: MD Ordered Performed By: #### L 500.2500 ####[facility] [address] [place], [address] GAP Normal 5-15 [facility] Comment on above: Order Comment: Call MD with results STAT Result Comment: Canc elled via OM: MD Ordered Performed By: #### L 500.2500 ####[facility] [address] [place], [address] GLU Normal 70-99 [facility] Comment on above: Order Comment: Call MD with results STAT Result Comment: Canc elled via OM: MD Ordered Performed By: #### L 500.2500 ####[facility] [address] [place], [address] Potassium Normal 3.3-5.1 [facility] Comment on above: Order Comment: Call MD with results STAT Result Comment: Canc elled via OM: MD Ordered Performed By: #### L 500.2500 ####[facility] [address] [place], [address] Basic Metabolic Profile (BMP) Normal 133-145 [facility] Comment on above: Order Comment: Call MD with results STAT Result Comment: Canc elled via OM: MD Ordered Performed By: #### L 500.2500 ####[facility] [address] [place], [address] BUN Normal 4-19 [facility] Comment on above: Order Comment: Call MD with results STAT Result Comment: Canc elled via OM: MD Ordered Performed By: #### L 500.2500 ####[facility] [address] [place], [address] BUN/CRE Normal 10-20 [facility] Comment on above: Order Comment: Call MD with results STAT Result Comment: Canc elled via OM: MD Ordered Performed By: #### L 500.2500 ####[facility] [address] [place], [address] Calcium Normal 7.6-11.0 [facility] Comment on above: Order Comment: Call MD with results STAT Result Comment: Canc elled via OM: MD Ordered Performed By: #### L 500.2500 ####[facility] [address] [place], [address] CL Normal 98-108 [facility] Comment on above: Order Comment: Call MD with results STAT Result Comment: Canc elled via OM: MD Ordered Performed By: #### L 500.2500 ####[facility] [address] [place], [address] CO2 Normal 21.0-32.0 [facility] Comment on above: Order Comment: Call MD with results STAT Result Comment: Canc elled via OM: MD Ordered Performed By: #### L 500.2500 ####[facility] [address] [place], [address] CREAT,SERUM Normal 0.70-1.20 [facility] Comment on above: Order Comment: Call MD with results STAT Result Comment: Canc elled via OM: MD Ordered Performed By: #### L 500.2500 ####[facility] [address] [place], [address] eGFR Normal >60 [facility] Comment on above: Order Comment: Call MD with results STAT Result Comment: Canc elled via OM: MD Ordered Performed By: #### L 500.2500 ####[facility] [address] [place], [address] GAP Normal 5-15 [facility] Comment on above: Order Comment: Call MD with results STAT Result Comment: Canc elled via OM: MD Ordered Performed By: #### L 500.2500 ####[facility] [address] [place], [address] GLU Normal 70-99 [facility] Comment on above: Order Comment: Call MD with results STAT Result Comment: Canc elled via OM: MD Ordered Performed By: #### L 500.2500 ####[facility] [address] [place], [address] Potassium Normal 3.3-5.1 [facility] Comment on above: Order Comment: Call MD with results STAT Result Comment: Canc elled via OM: MD Ordered Performed By: #### L 500.2500 ####[facility] [address] [place], [address] Basic Metabolic Profile (BMP) Normal 133-145 [facility] Comment on above: Order Comment: Call MD with results STAT Result Comment: Canc elled via OM: MD Ordered Performed By: #### L 500.2500 ####[facility] [address] [place], [address] BUN Normal 4-19 [facility] Comment on above: Order Comment: Call MD with results STAT Result Comment: Canc elled via OM: MD Ordered Performed By: #### L 500.2500 ####[facility] [address] [place], [address] BUN/CRE Normal 10-20 [facility] Comment on above: Order Comment: Call MD with results STAT Result Comment: Canc elled via OM: MD Ordered Performed By: #### L 500.2500 ####[facility] [address] [place], [address] Calcium Normal 7.6-11.0 [facility] Comment on above: Order Comment: Call MD with results STAT Result Comment: Canc elled via OM: MD Ordered Performed By: #### L 500.2500 ####[facility] [address] [place], [address] CL Normal 98-108 [facility] Comment on above: Order Comment: Call MD with results STAT Result Comment: Canc elled via OM: MD Ordered Performed By: #### L 500.2500 ####[facility] [address] [place], [address] CO2 Normal 21.0-32.0 [facility] Comment on above: Order Comment: Call MD with results STAT Result Comment: Canc elled via OM: MD Ordered Performed By: #### L 500.2500 ####[facility] [address] [place], [address] CREAT,SERUM Normal 0.70-1.20 [facility] Comment on above: Order Comment: Call MD with results STAT Result Comment: Canc elled via OM: MD Ordered Performed By: #### L 500.2500 ####[facility] [address] [place], [address] eGFR Normal >60 [facility] Comment on above: Order Comment: Call MD with results STAT Result Comment: Canc elled via OM: MD Ordered Performed By: #### L 500.2500 ####[facility] [address] [place], [address] GAP Normal 5-15 [facility] Comment on above: Order Comment: Call MD with results STAT Result Comment: Canc elled via OM: MD Ordered Performed By: #### L 500.2500 ####[facility] [address] [place], [address] GLU Normal 70-99 [facility] Comment on above: Order Comment: Call MD with results STAT Result Comment: Canc elled via OM: MD Ordered Performed By: #### L 500.2500 ####[facility] [address] [place], [address] Potassium Normal 3.3-5.1 [facility] Comment on above: Order Comment: Call MD with results STAT Result Comment: Canc elled via OM: MD Ordered Performed By: #### L 500.2500 ####[facility] [address] [place], [address] Basic Metabolic Profile (BMP) Normal 133-145 [facility] Comment on above: Order Comment: Call MD with results STAT Result Comment: Canc elled via OM: MD Ordered Performed By: #### L 500.2500 ####[facility] [address] [place], [address] BUN Normal 4-19 [facility] Comment on above: Order Comment: Call MD with results STAT Result Comment: Canc elled via OM: MD Ordered Performed By: #### L 500.2500 ####[facility] [address] [place], [address] BUN/CRE Normal 10-20 [facility] Comment on above: Order Comment: Call MD with results STAT Result Comment: Canc elled via OM: MD Ordered Performed By: #### L 500.2500 ####[facility] [address] [place], [address] Calcium Normal 7.6-11.0 [facility] Comment on above: Order Comment: Call MD with results STAT Result Comment: Canc elled via OM: MD Ordered Performed By: #### L 500.2500 ####[facility] [address] [place], [address] CL Normal 98-108 [facility] Comment on above: Order Comment: Call MD with results STAT Result Comment: Canc elled via OM: MD Ordered Performed By: #### L 500.2500 ####[facility] [address] [place], [address] CO2 Normal 21.0-32.0 [facility] Comment on above: Order Comment: Call MD with results STAT Result Comment: Canc elled via OM: MD Ordered Performed By: #### L 500.2500 ####[facility] [address] [place], [address] CREAT,SERUM Normal 0.70-1.20 [facility] Comment on above: Order Comment: Call MD with results STAT Result Comment: Canc elled via OM: MD Ordered Performed By: #### L 500.2500 ####[facility] [address] [place], [address] eGFR Normal >60 [facility] Comment on above: Order Comment: Call MD with results STAT Result Comment: Cansara elled via OM: MD Ordered Performed By: #### L 500.2500 ####[facility] [address] [place], [address] GAP Normal 5-15 [facility] Comment on above: Order Comment: Call MD with results STAT Result Comment: Canc elled via OM: MD Ordered Performed By: #### L 500.2500 ####[facility] [address] [place], [address] GLU Normal 70-99 [facility] Comment on above: Order Comment: Call MD with results STAT Result Comment: Canc elled via OM: MD Ordered Performed By: #### L 500.2500 ####[facility] [address] [place], [address] Potassium Normal 3.3-5.1 [facility] Comment on above: Order Comment: Call MD with results STAT Result Comment: Canc elled via OM: MD Ordered Performed By: #### L 500.2500 ####[facility] [address] [place], [address] Basic Metabolic Profile (BMP) Normal 133-145 [facility] Comment on above: Order Comment: Call MD with results STAT Result Comment: Cansara elled via OM: MD Ordered Performed By: #### L 500.2500 ####[facility] [address] [place], [address] BUN/CRE 6.1 RATIO Low 10-20 [facility] Comment on above: Performed By: #### L 500.2500 ####[facility] [address] [place], [address] Calcium [Mass/Vol] 7.9 mg/dL Normal 7.6-11.0 [facility] Comment on above: Performed By: #### L 500.2500 ####[facility] [address] [place], [address] Chloride [Moles/Vol] 111 mmol/L High 98-108 [facility] Comment on above: Performed By: #### L 500.2500 ####[facility] [address] [place], [address] CO2 [Moles/Vol] 20.1 mmol/L Low 21.0-32.0 [facility] Comment on above: Performed By: #### L 500.2500 ####[facility] [address] [place], [address] Creatinine [Mass/Vol] 0.76 mg/dL Normal 0.70-1.20 [facility] Comment on above: Performed By: #### L 500.2500 ####[facility] [address] [place], [address] ECRCL 133.37 ml/min Normal 50-250 [facility] Comment on above: Performed By: #### L 500.2500 ####[facility] [address] [place], [address] GAP 9 Normal 5-15 [facility] Comment on above: Performed By: #### L 500.2500 ####[facility] [address] [place], [address] GFR/1.73 sq M.predicted among non-blacks MDRD (S/P/Bld) [Vol rate/Area] 107 mL/min/{1.73_m2} Normal >60 [facility] Comment on above: Result Comment: mL/m in/1.73m2 CKD-EPI Creatinine Equation (2020) Performed By: #### L 500.2500 ####[facility] [address] [place], [address] Glucose [Mass/Vol] 127 mg/dL High 70-99 [facility] Comment on above: Performed By: #### L 500.2500 ####[facility] [address] [place], [address] Potassium [Moles/Vol] 3.9 mmol/L Normal 3.3-5.1 [facility] Comment on above: Performed By: #### L 500.2500 ####[facility] [address] [place], [address] Sodium [Moles/Vol] 140 mmol/L Normal 133-145 [facility] Comment on above: Performed By: #### L 500.2500 ####[facility] [address] [place], [address] Urea nitrogen [Mass/Vol] 5 mg/dL Normal 4-19 [facility] Comment on above: Performed By: #### L 500.2500 ####[facility] [address] [place], [address] BUN/CRE 6.5 RATIO Low 10-20 [facility] Comment on above: Order Comment: Call MD with results STAT Performed By: #### L 500.2500 ####[facility] [address] [place], [address] Calcium [Mass/Vol] 8.3 mg/dL Normal 7.6-11.0 [facility] Comment on above: Order Comment: Call MD with results STAT Performed By: #### L 500.2500 ####[facility] [address] [place], [address] Chloride [Moles/Vol] 109 mmol/L High 98-108 [facility] Comment on above: Order Comment: Call MD with results STAT Performed By: #### L 500.2500 ####[facility] [address] [place], [address] CO2 [Moles/Vol] 20.4 mmol/L Low 21.0-32.0 [facility] Comment on above: Order Comment: Call MD with results STAT Performed By: #### L 500.2500 ####[facility] [address] [place], [address] Creatinine [Mass/Vol] 0.78 mg/dL Normal 0.70-1.20 [facility] Comment on above: Order Comment: Call MD with results STAT Performed By: #### L 500.2500 ####[facility] [address] [place], [address] ECRCL 129.95 ml/min Normal 50-250 [facility] Comment on above: Order Comment: Call MD with results STAT Performed By: #### L 500.2500 ####[facility] [address] [place], [address] GAP 11 Normal 5-15 [facility] Comment on above: Order Comment: Call MD with results STAT Performed By: #### L 500.2500 ####[facility] [address] [place], [address] GFR/1.73 sq M.predicted among non-blacks MDRD (S/P/Bld) [Vol rate/Area] 103 mL/min/{1.73_m2} Normal >60 [facility] Comment on above: Order Comment: Call MD with results STAT Result Comment: mL/m in/1.73m2 CKD-EPI Creatinine Equation (2020) Performed By: #### L 500.2500 ####[facility] [address] [place], [address] Glucose [Mass/Vol] 71 mg/dL Normal 70-99 [facility] Comment on above: Order Comment: Call MD with results STAT Performed By: #### L 500.2500 ####[facility] [address] [place], [address] Potassium [Moles/Vol] 3.4 mmol/L Normal 3.3-5.1 [facility] Comment on above: Order Comment: Call MD with results STAT Performed By: #### L 500.2500 ####[facility] [address] [place], [address] Sodium [Moles/Vol] 141 mmol/L Normal 133-145 [facility] Comment on above: Order Comment: Call MD with results STAT Performed By: #### L 500.2500 ####[facility] [address] [place], [address] Urea nitrogen [Mass/Vol] 5 mg/dL Normal 4-19 [facility] Comment on above: Order Comment: Call MD with results STAT Performed By: #### L 500.2500 ####[facility] [address] [place], [address] BUN/CRE 7.2 RATIO Low 10-20 [facility] Comment on above: Order Comment: Call MD with results STAT Performed By: #### L 500.2500 ####[facility] [address] [place], [address] Calcium [Mass/Vol] 8.2 mg/dL Normal 7.6-11.0 [facility] Comment on above: Order Comment: Call MD with results STAT Performed By: #### L 500.2500 ####[facility] [address] [place], [address] Chloride [Moles/Vol] 108 mmol/L Normal 98-108 [facility] Comment on above: Order Comment: Call MD with results STAT Performed By: #### L 500.2500 ####[facility] [address] [place], [address] CO2 [Moles/Vol] 19.1 mmol/L Low 21.0-32.0 [facility] Comment on above: Order Comment: Call MD with results STAT Performed By: #### L 500.2500 ####[facility] [address] [place], [address] Creatinine [Mass/Vol] 0.84 mg/dL Normal 0.70-1.20 [facility] Comment on above: Order Comment: Call MD with results STAT Performed By: #### L 500.2500 ####[facility] [address] [place], [address] ECRCL 120.61 ml/min Normal 50-250 [facility] Comment on above: Order Comment: Call MD with results STAT Performed By: #### L 500.2500 ####[facility] [address] [place], [address] GAP 13 Normal 5-15 [facility] Comment on above: Order Comment: Call MD with results STAT Performed By: #### L 500.2500 ####[facility] [address] [place], [address] GFR/1.73 sq M.predicted among non-blacks MDRD (S/P/Bld) [Vol rate/Area] 94 mL/min/{1.73_m2} Normal >60 [facility] Comment on above: Order Comment: Call MD with results STAT Result Comment: mL/m in/1.73m2 CKD-EPI Creatinine Equation (2020) Performed By: #### L 500.2500 ####[facility] [address] [place], [address] Glucose [Mass/Vol] 189 mg/dL High 70-99 [facility] Comment on above: Order Comment: Call MD with results STAT Performed By: #### L 500.2500 ####[facility] [address] [place], [address] Potassium [Moles/Vol] 3.7 mmol/L Normal 3.3-5.1 [facility] Comment on above: Order Comment: Call MD with results STAT Performed By: #### L 500.2500 ####[facility] [address] [place], [address] Sodium [Moles/Vol] 139 mmol/L Normal 133-145 [facility] Comment on above: Order Comment: Call MD with results STAT Performed By: #### L 500.2500 ####[facility] [address] [place], [address] Urea nitrogen [Mass/Vol] 6 mg/dL Normal 4-19 [facility] Comment on above: Order Comment: Call MD with results STAT Performed By: #### L 500.2500 ####[facility] [address] [place], [address] Bedside Glucoseon 01-01-2025 FINGERSTICK GLU 113 mg/dL High 74-106 [facility] Comment on above: Result Comment: BULL GEMENT OF PATIENT CARE PER NURSING PROTOCOL Performed By: #### L 501.080 ####[facility] [address] [place], [address] FINGERSTICK GLU 119 mg/dL High 74-106 [facility] Comment on above: Result Comment: BULL GEMENT OF PATIENT CARE PER NURSING PROTOCOL Performed By: #### L 501.080 ####[facility] [address] [place], [address] FINGERSTICK GLU 104 mg/dL Normal 74-106 [facility] Comment on above: Result Comment: BULL GEMENT OF PATIENT CARE PER NURSING PROTOCOL Performed By: #### L 501.080 ####[facility] [address] [place], [address] FINGERSTICK GLU 110 mg/dL High 74-106 [facility] Comment on above: Result Comment: BULL GEMENT OF PATIENT CARE PER NURSING PROTOCOL Performed By: #### L 501.080 ####[facility] [address] [place], [address] FINGERSTICK GLU 98 mg/dL Normal 74-106 [facility] Comment on above: Result Comment: BULL GEMENT OF PATIENT CARE PER NURSING PROTOCOL Performed By: #### L 501.080 ####[facility] [address] [place], [address] FINGERSTICK GLU 62 mg/dL Low 74-106 [facility] Comment on above: Result Comment: BULL GEMENT OF PATIENT CARE PER NURSING PROTOCOL Performed By: #### L 501.080 ####[facility] [address] [place], [address] FINGERSTICK GLU 112 mg/dL High 74-106 [facility] Comment on above: Result Comment: BULL GEMENT OF PATIENT CARE PER NURSING PROTOCOL Performed By: #### L 501.080 ####[facility] [address] [place], [address] FINGERSTICK GLU 134 mg/dL High 74-106 [facility] Comment on above: Result Comment: BULL GEMENT OF PATIENT CARE PER NURSING PROTOCOL Performed By: #### L 501.080 ####[facility] [address] [place], [address] FINGERSTICK GLU 144 mg/dL High 74-106 [facility] Comment on above: Result Comment: BULL GEMENT OF PATIENT CARE PER NURSING PROTOCOL Performed By: #### L 501.080 ####[facility] [address] [place], [address] FINGERSTICK GLU 179 mg/dL High 74-106 [facility] Comment on above: Result Comment: BULL GEMENT OF PATIENT CARE PER NURSING PROTOCOL Performed By: #### L 501.080 ####[facility] [address] [place], [address] Beta-Hydroxbytyrateon 2024 BETA-HYDROXYBUT 0.0 mmol/L Normal 0.0-0.3 [facility] Comment on above: Performed By: #### L 501.6901 ####[facility] [address] [place], [address] Beta-hydroxybutyrateOrdered By: Dewayne Duff on 01-01-2025 Beta hydroxybutyrate [Mass/Vol] 0.0 mmol/L 0.0-0.3 [facility] CO2 (BldV) [Moles/Vol]Ordere d By: Dewayne Duff on 01-01-2025 CO2 [Moles/Vol] 23 mmol/L [facility] Carbon dioxide, total [Moles /volume] in Central venous bloodOrdered By: Dewayne Duff on 01-01-2025 CO2 [Moles/Vol] 20.1 mmol/L Low 21.0-32.0 [facility] Chloride assayOrdered By: Gaurang Duff on 01-01-2025 Chloride [Moles/Vol] 111 mmol/L High 98-108 [facility] Discharge Instructionon 12-11 Discharge Instruction Normal [facility] Glomerular filtration rate ( GFR) estimation/1.73 sq m using serum, plasma, or whole bOrdered By: Dewayne Duff on 01-01-2025 GFR/1.73 sq M.predicted among non-blacks MDRD (S/P/Bld) [Vol rate/Area] 107 mL/min/{1.73_m2} >60 [facility] deOrdered By: Frantz Coulter on 01-01-2025 Glucose [Mass/Vol] 113 mg/dL High 74-106 [facility] No Panel InformationOrdered By: Dewayne Duff on 01-01-2025 ESTRELLA [facility] Not entered [facility] Potassium measurement (mass/ volume)Ordered By: Dewayne Duff on 01-01-2025 Potassium (Unsp spec) [Mass/Vol] 3.9 mmol/L 3.3-5.1 [facility] Serum creatinine measurement (mass/volume)Ordered By: Dewayne Duff on 01-01-2025 Creatinine [Mass/Vol] 0.76 mg/dL 0.70-1.20 [facility] Serum glucose measurement (m ass/volume)Ordered By: Dewayne Duff on 01-01-2025 Glucose [Mass/Vol] 127 mg/dL High 70-99 [facility] Serum or plasma calcium hussein urement (mass/volume)Ordered By: Dewayne Duff on 06-23-2025 Calcium [Mass/Vol] 7.9 mg/dL 7.6-11.0 [facility] Serum or plasma urea nitroge n measurement (mass/volume)Ordered By: Dewayne Duff on 01-01-2025 Urea nitrogen [Mass/Vol] 5 mg/dL 4-19 [facility] Sodium levelOrdered By: Fletcher Duff on 01-01-2025 Sodium [Moles/Vol] 140 mmol/L 133-145 [facility] Urine Cultureon 01-01-2025 [facility] Mixed Gram Positive Organisms [place] Count 25,000-50,000 MIX[facility] Mixed contaminants. Submit a new specimen if indicated. Normal [facility] Comment on above: Performed By: #### M 100.2200 ####[facility] [address] [place], [address] Venous Blood Gason 5 Blood Gas Type ESTRELLA Normal [facility] Comment on above: Performed By: #### L 9000.0810 ####[facility] [address] [place], [address] CO2 [Moles/Vol] 23 mmol/L Normal 23-33 [facility] Comment on above: Performed By: #### L 9000.0810 ####[facility] [address] [place], [address] FI02 21.0 Normal [facility] Comment on above: Performed By: #### L 9000.0810 ####[facility] [address] [place], [address] HCO3 (Bld) [Moles/Vol] 22 mmol/L Normal 22-26 [facility] Comment on above: Performed By: #### L 9000.0810 ####[facility] [address] [place], [address] O2 Delivery Dev Not entered Normal [facility] Comment on above: Performed By: #### L 9000.0810 ####[facility] [address] [place], [address] SITE Not entered Normal [facility] Comment on above: Performed By: #### L 9000.0810 ####[facility] [address] [place], [address] VBG BE -3 mmol/L Low -1.0-3.5 [facility] Comment on above: Performed By: #### L 9000.0810 ####[facility] [address] [place], [address] VBG pCO2 35.7 mmHg Low 41-51 [facility] Comment on above: Performed By: #### L 9000.0810 ####[facility] [address] [place], [address] VBG pH 7.40 Normal 7.32-7.42 [facility] Comment on above: Performed By: #### L 9000.0810 ####[facility] [address] [place], [address] VBG PO2 53 mmHg High 25-40 [facility] Comment on above: Performed By: #### L 9000.0810 ####[facility] [address] [place], [address] VBG SO2 87 High 50-70 [facility] Comment on above: Performed By: #### L 9000.0810 ####[facility] [address] [place], [address] Venous blood base excess kedar surementOrdered By: Dewayne Duff on 01-01-2025 Base excess Calc (BldV) [Moles/Vol] -3 mmol/L Low -1.0-3.5 [facility] Venous blood bicarbonate kedar surementOrdered By: Dewayne Duff on 01-01-2025 HCO3 (Bld) [Moles/Vol] 22 mmol/L 22-26 [facility] Venous blood pH measurementO rdered By: Dewayne Duff on 01-01-2025 pH (BldV) 7.40 [pH] 7.32-7.42 [facility] Venous blood partial pressur e of carbon dioxide measurementOrdered By: Dewayne Duff on 01-01-2025 CO2 (BldV) [Partial pressure] 35.7 mm[Hg] Low 41-51 [facility] Venous blood partial pressur e of oxygen measurementOrdered By: Dewayne Duff on 01-01-2025 Oxygen (BldV) [Partial pressure] 53 mm[Hg] High 25-40 [facility] 12 Lead EKGon 12-31-2024 12 Lead EKG Normal [facility] Absolute lymphocyte countOrd ered By: Poli Barfield on 12-31-2024 Lymphocytes Auto (Unsp spec) [#/Vol] 2.74 10*3/uL 0.83-4.51 [facility] Anion gap in Serum or Plasma Ordered By: Poli Barfield on 12-31-2024 Anion gap [Moles/Vol] 13 mmol/L 11-23 [facility] Anion gap in Serum or Plasma Ordered By: David Bain on 12-31-2024 Anion gap [Moles/Vol] 12 mmol/L 11-23 [facility] Automated lymphocyte count a s percentage of total leukocytesOrdered By: Poli Barfield on 12-31-2024 Lymphocytes/100 WBC Auto (Unsp spec) 27.7 % 19-41 [facility] BUN/creatinine ratioOrdered By: Poli Barfield on 12-31-2024 Urea nitrogen/Creatinine [Mass ratio] 8.0 mg/mg Low 04-30 [facility] BUN/creatinine ratioOrdered By: David Bain on 12-31-2024 Urea nitrogen/Creatinine [Mass ratio] 10.2 mg/mg 04-30 [facility] Basic Metabolic Profile (BMP )on 12-31-2024 BUN/CRE 8.0 RATIO Low 04-30 [facility] Comment on above: Performed By: #### L 500.2500 ####[facility] [address] [place], [address] Calcium [Mass/Vol] 8.2 mg/dL Normal 7.6-11.0 [facility] Comment on above: Performed By: #### L 500.2500 ####[facility] [address] [place], [address] Chloride [Moles/Vol] 108 mmol/L Normal 98-108 [facility] Comment on above: Performed By: #### L 500.2500 ####[facility] [address] [place], [address] CO2 [Moles/Vol] 18.2 mmol/L Low 21.0-32.0 [facility] Comment on above: Performed By: #### L 500.2500 ####[facility] [address] [place], [address] Creatinine [Mass/Vol] 0.85 mg/dL Normal 0.70-1.20 [facility] Comment on above: Performed By: #### L 500.2500 ####[facility] [address] [place], [address] ECRCL 118.14 ml/min Normal 50-250 [facility] Comment on above: Performed By: #### L 500.2500 ####[facility] [address] [place], [address] GAP 13 Normal 5-15 [facility] Comment on above: Performed By: #### L 500.2500 ####[facility] [address] [place], [address] GFR/1.73 sq M.predicted among non-blacks MDRD (S/P/Bld) [Vol rate/Area] 93 mL/min/{1.73_m2} Normal >60 [facility] Comment on above: Result Comment: mL/m in/1.73m2 CKD-EPI Creatinine Equation (2020) Performed By: #### L 500.2500 ####[facility] [address] [place], [address] Glucose [Mass/Vol] 177 mg/dL High 70-99 [facility] Comment on above: Performed By: #### L 500.2500 ####[facility] [address] [place], [address] Potassium [Moles/Vol] 3.7 mmol/L Normal 3.3-5.1 [facility] Comment on above: Performed By: #### L 500.2500 ####[facility] [address] [place], [address] Sodium [Moles/Vol] 139 mmol/L Normal 133-145 [facility] Comment on above: Performed By: #### L 500.2500 ####[facility] [address] [place], [address] Urea nitrogen [Mass/Vol] 7 mg/dL Normal 4-19 [facility] Comment on above: Performed By: #### L 500.2500 ####[facility] [address] [place], [address] BUN/CRE 7.1 RATIO Low 10-20 [facility] Comment on above: Performed By: #### L 501.6901, L500.2500 ####[facility] [address] [place], [address] Calcium [Mass/Vol] 9.1 mg/dL Normal 7.6-11.0 [facility] Comment on above: Performed By: #### L 501.6901, L500.2500 ####[facility] [address] [place], [address] Chloride [Moles/Vol] 105 mmol/L Normal 98-108 [facility] Comment on above: Performed By: #### L 501.6901, L500.2500 ####[facility] [address] [place], [address] CO2 [Moles/Vol] 20.4 mmol/L Low 21.0-32.0 [facility] Comment on above: Performed By: #### L 501.6901, L500.2500 ####[facility] [address] [place], [address] Creatinine [Mass/Vol] 0.99 mg/dL Normal 0.70-1.20 [facility] Comment on above: Performed By: #### L 501.6901, L500.2500 ####[facility] [address] [place], [address] ECRCL 101.44 ml/min Normal 50-250 [facility] Comment on above: Performed By: #### L 501.6901, L500.2500 ####[facility] [address] [place], [address] GAP 15 Normal 5-15 [facility] Comment on above: Performed By: #### L 501.6901, L500.2500 ####[facility] [address] [place], [address] GFR/1.73 sq M.predicted among non-blacks MDRD (S/P/Bld) [Vol rate/Area] 77 mL/min/{1.73_m2} Normal >60 [facility] Comment on above: Result Comment: mL/m in/1.73m2 CKD-EPI Creatinine Equation (2020) Performed By: #### L 501.6901, L500.2500 ####[facility] [address] [place], [address] Glucose [Mass/Vol] 160 mg/dL High 70-99 [facility] Comment on above: Performed By: #### L 501.6901, L500.2500 ####[facility] [address] [place], [address] Potassium [Moles/Vol] 3.8 mmol/L Normal 3.3-5.1 [facility] Comment on above: Performed By: #### L 501.6901, L500.2500 ####[facility] [address] [place], [address] Sodium [Moles/Vol] 140 mmol/L Normal 133-145 [facility] Comment on above: Performed By: #### L 501.6901, L500.2500 ####[facility] [address] [place], [address] Urea nitrogen [Mass/Vol] 7 mg/dL Normal 4-19 [facility] Comment on above: Performed By: #### L 501.6901, L500.2500 ####[facility] [address] [place], [address] BUN Normal 4-19 [facility] Comment on above: Order Comment: Call MD with results STAT Result Comment: Canc elled via OM: Order cancelled - Patient discharged Performed By: #### L 500.2500 ####[facility] [address] [place], [address] BUN/CRE Normal 10-20 [facility] Comment on above: Order Comment: Call MD with results STAT Result Comment: Canc elled via OM: Order cancelled - Patient discharged Performed By: #### L 500.2500 ####[facility] [address] [place], [address] Calcium Normal 7.6-11.0 [facility] Comment on above: Order Comment: Call MD with results STAT Result Comment: Canc elled via OM: Order cancelled - Patient discharged Performed By: #### L 500.2500 ####[facility] [address] [place], [address] CL Normal 98-108 [facility] Comment on above: Order Comment: Call MD with results STAT Result Comment: Canc elled via OM: Order cancelled - Patient discharged Performed By: #### L 500.2500 ####[facility] [address] [place], [address] CO2 Normal 21.0-32.0 [facility] Comment on above: Order Comment: Call MD with results STAT Result Comment: Canc elled via OM: Order cancelled - Patient discharged Performed By: #### L 500.2500 ####[facility] [address] [place], [address] CREAT,SERUM Normal 0.70-1.20 [facility] Comment on above: Order Comment: Call MD with results STAT Result Comment: Canc elled via OM: Order cancelled - Patient discharged Performed By: #### L 500.2500 ####[facility] [address] [place], [address] eGFR Normal >60 [facility] Comment on above: Order Comment: Call MD with results STAT Result Comment: Canc elled via OM: Order cancelled - Patient discharged Performed By: #### L 500.2500 ####[facility] [address] [place], [address] GAP Normal 5-15 [facility] Comment on above: Order Comment: Call MD with results STAT Result Comment: Canc elled via OM: Order cancelled - Patient discharged Performed By: #### L 500.2500 ####[facility] [address] [place], [address] GLU Normal 70-99 [facility] Comment on above: Order Comment: Call MD with results STAT Result Comment: Canc elled via OM: Order cancelled - Patient discharged Performed By: #### L 500.2500 ####[facility] [address] [place], [address] Potassium Normal 3.3-5.1 [facility] Comment on above: Order Comment: Call MD with results STAT Result Comment: Canc elled via OM: Order cancelled - Patient discharged Performed By: #### L 500.2500 ####[facility] [address] [place], [address] Basic Metabolic Profile (BMP) Normal 133-145 [facility] Comment on above: Order Comment: Call MD with results STAT Result Comment: Canc elled via OM: Order cancelled - Patient discharged Performed By: #### L 500.2500 ####[facility] [address] [place], [address] BUN Normal 4-19 [facility] Comment on above: Order Comment: Call MD with results STAT Result Comment: Canc elled via OM: Order cancelled - Patient discharged Performed By: #### L 500.2500 ####[facility] [address] [facility] [address] BUN/CRE Normal 10-20 [facility] Comment on above: Order Comment: Call MD with results STAT Result Comment: Canc elled via OM: Order cancelled - Patient discharged Performed By: #### L 500.2500 ####[facility] [address] [facility] [address] Calcium Normal 7.6-11.0 [facility] Comment on above: Order Comment: Call MD with results STAT Result Comment: Canc elled via OM: Order cancelled - Patient discharged Performed By: #### L 500.2500 ####[facility] [address] [place], [address] CL Normal 98-108 [facility] Comment on above: Order Comment: Call MD with results STAT Result Comment: Canc elled via OM: Order cancelled - Patient discharged Performed By: #### L 500.2500 ####[facility] [address] [facility] [address] CO2 Normal 21.0-32.0 [facility] Comment on above: Order Comment: Call MD with results STAT Result Comment: Canc elled via OM: Order cancelled - Patient discharged Performed By: #### L 500.2500 ####[facility] [address] [facility] [address] CREAT,SERUM Normal 0.70-1.20 [facility] Comment on above: Order Comment: Call MD with results STAT Result Comment: Canc elled via OM: Order cancelled - Patient discharged Performed By: #### L 500.2500 ####[facility] [address] [place], [address] eGFR Normal >60 [facility] Comment on above: Order Comment: Call MD with results STAT Result Comment: Canc elled via OM: Order cancelled - Patient discharged Performed By: #### L 500.2500 ####[facility] [address] [place], [address] GAP Normal 5-15 [facility] Comment on above: Order Comment: Call MD with results STAT Result Comment: Canc elled via OM: Order cancelled - Patient discharged Performed By: #### L 500.2500 ####[facility] [address] [place], [address] GLU Normal 70-99 [facility] Comment on above: Order Comment: Call MD with results STAT Result Comment: Canc elled via OM: Order cancelled - Patient discharged Performed By: #### L 500.2500 ####[facility] [address] [place], [address] Potassium Normal 3.3-5.1 [facility] Comment on above: Order Comment: Call MD with results STAT Result Comment: Canc elled via OM: Order cancelled - Patient discharged Performed By: #### L 500.2500 ####[facility] [address] [place], [address] Basic Metabolic Profile (BMP) Normal 133-145 [facility] Comment on above: Order Comment: Call MD with results STAT Result Comment: Canc elled via OM: Order cancelled - Patient discharged Performed By: #### L 500.2500 ####[facility] [address] [place], [address] BUN/CRE 10.2 RATIO Normal 10-20 [facility] Comment on above: Order Comment: Call MD with results STAT Performed By: #### L 500.2500 ####[facility] [address] [place], [address] Calcium [Mass/Vol] 8.2 mg/dL Normal 7.6-11.0 [facility] Comment on above: Order Comment: Call MD with results STAT Performed By: #### L 500.2500 ####[facility] [address] [place], [address] Chloride [Moles/Vol] 106 mmol/L Normal 98-108 [facility] Comment on above: Order Comment: Call MD with results STAT Performed By: #### L 500.2500 ####[facility] [address] [place], [address] CO2 [Moles/Vol] 21.3 mmol/L Normal 21.0-32.0 [facility] Comment on above: Order Comment: Call MD with results STAT Performed By: #### L 500.2500 ####[facility] [address] [place], [address] Creatinine [Mass/Vol] 0.82 mg/dL Normal 0.70-1.20 [facility] Comment on above: Order Comment: Call MD with results STAT Performed By: #### L 500.2500 ####[facility] [address] [place], [address] ECRCL 123.80 ml/min Normal 50-250 [facility] Comment on above: Order Comment: Call MD with results STAT Performed By: #### L 500.2500 ####[facility] [address] [place], [address] GAP 12 Normal 5-15 [facility] Comment on above: Order Comment: Call MD with results STAT Performed By: #### L 500.2500 ####[facility] [address] [place], [address] GFR/1.73 sq M.predicted among non-blacks MDRD (S/P/Bld) [Vol rate/Area] 97 mL/min/{1.73_m2} Normal >60 [facility] Comment on above: Order Comment: Call MD with results STAT Result Comment: mL/m in/1.73m2 CKD-EPI Creatinine Equation (2020) Performed By: #### L 500.2500 ####[facility] [address] [place], [address] Glucose [Mass/Vol] 129 mg/dL High 70-99 [facility] Comment on above: Order Comment: Call MD with results STAT Performed By: #### L 500.2500 ####[facility] [address] [place], [address] Potassium [Moles/Vol] 3.6 mmol/L Normal 3.3-5.1 [facility] Comment on above: Order Comment: Call MD with results STAT Performed By: #### L 500.2500 ####[facility] [address] [place], [address] Sodium [Moles/Vol] 138 mmol/L Normal 133-145 [facility] Comment on above: Order Comment: Call MD with results STAT Performed By: #### L 500.2500 ####[facility] [address] [place], [address] Urea nitrogen [Mass/Vol] 8 mg/dL Normal 4-19 [facility] Comment on above: Order Comment: Call MD with results STAT Performed By: #### L 500.2500 ####[facility] [address] [place], [address] BUN/CRE 10.6 RATIO Normal 10-20 [facility] Comment on above: Order Comment: Call MD with results STAT Performed By: #### L 500.2500 ####[facility] [address] [place], [address] Calcium [Mass/Vol] 8.0 mg/dL Normal 7.6-11.0 [facility] Comment on above: Order Comment: Call MD with results STAT Performed By: #### L 500.2500 ####[facility] [address] [place], [address] Chloride [Moles/Vol] 106 mmol/L Normal 98-108 [facility] Comment on above: Order Comment: Call MD with results STAT Performed By: #### L 500.2500 ####[facility] [address] [place], [address] CO2 [Moles/Vol] 23.0 mmol/L Normal 21.0-32.0 [facility] Comment on above: Order Comment: Call MD with results STAT Performed By: #### L 500.2500 ####[facility] [address] [place], [address] Creatinine [Mass/Vol] 0.84 mg/dL Normal 0.70-1.20 [facility] Comment on above: Order Comment: Call MD with results STAT Performed By: #### L 500.2500 ####[facility] [address] [place], [address] ECRCL 119.52 ml/min Normal 50-250 [facility] Comment on above: Order Comment: Call MD with results STAT Performed By: #### L 500.2500 ####[facility] [address] [place], [address] GAP 11 Normal 5-15 [facility] Comment on above: Order Comment: Call MD with results STAT Performed By: #### L 500.2500 ####[facility] [address] [place], [address] GFR/1.73 sq M.predicted among non-blacks MDRD (S/P/Bld) [Vol rate/Area] 94 mL/min/{1.73_m2} Normal >60 [facility] Comment on above: Order Comment: Call MD with results STAT Result Comment: mL/m in/1.73m2 CKD-EPI Creatinine Equation (2020) Performed By: #### L 500.2500 ####[facility] [address] [place], [address] Glucose [Mass/Vol] 106 mg/dL High 70-99 [facility] Comment on above: Order Comment: Call MD with results STAT Performed By: #### L 500.2500 ####[facility] [address] [place], [address] Potassium [Moles/Vol] 3.3 mmol/L Normal 3.3-5.1 [facility] Comment on above: Order Comment: Call MD with results STAT Result Comment: Hemo lysis present, Results??could be affected.?? Performed By: #### L 500.2500 ####[facility] [address] [place], [address] Sodium [Moles/Vol] 140 mmol/L Normal 133-145 [facility] Comment on above: Order Comment: Call MD with results STAT Performed By: #### L 500.2500 ####[facility] [address] [place], [address] Urea nitrogen [Mass/Vol] 9 mg/dL Normal 4-19 [facility] Comment on above: Order Comment: Call MD with results STAT Performed By: #### L 500.2500 ####[facility] [address] [place], [address] Basophil percentageOrdered B y: Poli Le on 12-31-2024 Basophils/100 WBC (Bld) 0.5 % 0-1 [facility] Bedside Glucoseon 12-31-2024 FING[place]ICK GLU 173 mg/dL High 74-106 [facility] Comment on above: Result Comment: BULL GEMENT OF PATIENT CARE PER NURSING PROTOCOL Performed By: #### L 501.080 ####[facility] [address] [place], [address] FINGERSTICK GLU 169 mg/dL High 74-106 [facility] Comment on above: Result Comment: BULL GEMENT OF PATIENT CARE PER NURSING PROTOCOL Performed By: #### L 501.080 ####[facility] [address] [place], [address] FINGERSTICK GLU 152 mg/dL High 74-106 [facility] Comment on above: Result Comment: BULL GEMENT OF PATIENT CARE PER NURSING PROTOCOL Performed By: #### L 501.080 ####[facility] [address] [place], [address] FINGERSTICK GLU 140 mg/dL High 74-106 [facility] Comment on above: Result Comment: BULL GEMENT OF PATIENT CARE PER NURSING PROTOCOL Performed By: #### L 501.080 ####[facility] [address] [place], [address] FINGERSTICK GLU 146 mg/dL High 74-106 [facility] Comment on above: Result Comment: BULL GEMENT OF PATIENT CARE PER NURSING PROTOCOL Performed By: #### L 501.080 ####[facility] [address] [place], [address] FINGERSTICK GLU 147 mg/dL High 74-106 [facility] Comment on above: Result Comment: BULL GEMENT OF PATIENT CARE PER NURSING PROTOCOL Performed By: #### L 501.080 ####[facility] [address] [place], [address] FINGERSTICK GLU 136 mg/dL High 74-106 [facility] Comment on above: Result Comment: BULL GEMENT OF PATIENT CARE PER NURSING PROTOCOL Performed By: #### L 501.080 ####[facility] [address] [place], [address] FINGERSTICK GLU 120 mg/dL High 74-106 [facility] Comment on above: Result Comment: BULL GEMENT OF PATIENT CARE PER NURSING PROTOCOL Performed By: #### L 501.080 ####[facility] [address] [place], [address] FINGERSTICK GLU 112 mg/dL High 74-106 [facility] Comment on above: Result Comment: BULL GEMENT OF PATIENT CARE PER NURSING PROTOCOL Performed By: #### L 501.080 ####[facility] [address] [place], [address] FINGERSTICK GLU 106 mg/dL Normal 74-106 [facility] Comment on above: Result Comment: BULL GEMENT OF PATIENT CARE PER NURSING PROTOCOL Performed By: #### L 501.080 ####[facility] [address] [place], [address] FINGERSTICK GLU 84 mg/dL Normal 74-106 [facility] Comment on above: Result Comment: BULL GEMENT OF PATIENT CARE PER NURSING PROTOCOL Performed By: #### L 501.080 ####[facility] [address], [address] FINGERSTICK GLU 99 mg/dL Normal 74-106 [facility] Comment on above: Result Comment: BULL GEMENT OF PATIENT CARE PER NURSING PROTOCOL Performed By: #### L 501.080 ####[facility] [address] [place], [address] FINGERSTICK GLU 104 mg/dL Normal 74-106 [facility] Comment on above: Result Comment: BULL GEMENT OF PATIENT CARE PER NURSING PROTOCOL Performed By: #### L 501.080 ####[facility] [address] [place], [address] FINGERSTICK GLU 130 mg/dL High 74-106 [facility] Comment on above: Result Comment: BULL GEMENT OF PATIENT CARE PER NURSING PROTOCOL Performed By: #### L 501.080 ####[facility] [address] [place], [address] Beta-Hydroxbytyrateon 2024 BETA-HYDROXYBUT 0.5 mmol/L High 0.0-0.3 [facility] Comment on above: Performed By: #### L 501.6901 ####[facility] [address] [place], [address] BETA-HYDROXYBUT 0.6 mmol/L High 0.0-0.3 [facility] Comment on above: Performed By: #### L 501.6901, L500.2500 ####[facility] [address] [place], [address] BETA-HYDROXYBUT 0.1 mmol/L Normal 0.0-0.3 [facility] Comment on above: Performed By: #### L 501.6901 ####[facility] [address] [place], [address] Beta-hydroxybutyrateOrdered By: Poli Barfield on 12-31-2024 Beta hydroxybutyrate [Mass/Vol] 0.5 mmol/L High 0.0-0.3 [facility] Beta-hydroxybutyrateOrdered By: Dewayne Duff on 12-31-2024 Beta hydroxybutyrate [Mass/Vol] 0.1 mmol/L 0.0-0.3 [facility] Bilirubin Test strip Ql (U)O rdered By: Poli Barfield on 12-31-2024 Bilirubin Ql (U) Negative Negative [facility] CBC W/Diff, Automatedon 12-11 Absolute Lymph 2.74 X10 3/uL Normal 0.83-4.51 [facility] Comment on above: Performed By: #### L 100.0100 ####[facility] [address] [place], [address] Absolute Neut 6.4 X10 3/uL Normal 2.0-7.7 [facility] Comment on above: Performed By: #### L 100.0100 ####[facility] [address] [place], [address] Basophils/100 WBC (Bld) 0.5 % Normal 0-1 [facility] Comment on above: Performed By: #### L 100.0100 ####[facility] [address] [place], [address] Eosinophils/100 WBC (Bld) 0.3 % Normal 0-5 [facility] Comment on above: Performed By: #### L 100.0100 ####[facility] [address] [place], [address] Erythrocyte distribution width (RBC) [Ratio] 14.3 % Normal 11.6-14.6 [facility] Comment on above: Performed By: #### L 100.0100 ####[facility] [address] [place], [address] Hematocrit (Bld) [Volume fraction] 38.0 % Normal 37-47 [facility] Comment on above: Performed By: #### L 100.0100 ####[facility] [address] [place], [address] Hemoglobin (Bld) [Mass/Vol] 12.4 g/dL Normal 12.0-15.0 [facility] Comment on above: Performed By: #### L 100.0100 ####[facility] [address] [place], [address] IG% 0.700 Normal 0.0-0.9 [facility] Comment on above: Result Comment: IG% - Immature Granulocytes (promyelocytes, myelocytes andmetamyelocytes) > 1% indicates that a LEFT SHIFT is Present. Performed By: #### L 100.0100 ####[facility] [address] [place], [address] Lymphocytes/100 WBC (Bld) 27.7 % Normal 19-41 [facility] Comment on above: Performed By: #### L 100.0100 ####[facility] [address] [place], [address] MCH (RBC) [Entitic mass] 27.4 pg Normal 27.0-32.0 [facility] Comment on above: Performed By: #### L 100.0100 ####[facility] [address] [place], [address] MCHC (RBC) [Mass/Vol] 32.6 g/dL Normal 32-36 [facility] Comment on above: Performed By: #### L 100.0100 ####[facility] [address] [place], [address] MCV (RBC) [Entitic vol] 83.9 fL Normal 81-99 [facility] Comment on above: Performed By: #### L 100.0100 ####[facility] [address] [place], [address] Monocytes/100 WBC (Bld) 6.4 % Normal 0-10 [facility] Comment on above: Performed By: #### L 100.0100 ####[facility] [address] [place], [address] Neutrophils/100 WBC (Bld) 64.4 % Normal 47-70 [facility] Comment on above: Performed By: #### L 100.0100 ####[facility] [address] [place], [address] Nucleated RBC (Bld) [#/Vol] 0 10*3/uL Normal 0-5 [facility] Comment on above: Performed By: #### L 100.0100 ####[facility] [address] [place], [address] Platelet mean volume (Bld) [Entitic vol] 9.5 fL Normal 6.2-12.0 [facility] Comment on above: Performed By: #### L 100.0100 ####[facility] [address] [place], [address] Platelets (Bld) [#/Vol] 400 10*3/uL Normal 150-450 [facility] Comment on above: Performed By: #### L 100.0100 ####[facility] [address] [place], [address] RBC (Bld) [#/Vol] 4.53 10*6/uL Normal 4.2-5.4 [facility] Comment on above: Performed By: #### L 100.0100 ####[facility] [address] [place], [address] RDW SD 43.4 fl Normal 35.1-43.9 [facility] Comment on above: Performed By: #### L 100.0100 ####[facility] [address] [place], [address] WBC (Bld) [#/Vol] 9.9 10*3/uL Normal 4.4-11.0 [facility] Comment on above: Performed By: #### L 100.0100 ####[facility] [address] [place], [address] Absolute Neut Normal 2.0-7.7 [facility] Comment on above: Result Comment: ERASTO ENT DISCHARGED Performed By: #### L 100.0100 ####[facility] [address] [place], [address] HCT Normal 37-47 [facility] Comment on above: Result Comment: ERASTO ENT DISCHARGED Performed By: #### L 100.0100 ####[facility] [address] [place], [address] HGB Normal 12.0-15.0 [facility] Comment on above: Result Comment: ERASTO ENT DISCHARGED Performed By: #### L 100.0100 ####[facility] [address] [place], [address] MCH Normal 27.0-32.0 [facility] Comment on above: Result Comment: ERASTO ENT DISCHARGED Performed By: #### L 100.0100 ####[facility] [address] [place], [address] MCHC Normal 32-36 [facility] Comment on above: Result Comment: ERASTO ENT DISCHARGED Performed By: #### L 100.0100 ####[facility] [address] [place], [address] MCV Normal 81-99 [facility] Comment on above: Result Comment: ERASTO ENT DISCHARGED Performed By: #### L 100.0100 ####[facility] [address] [place], [address] NEUT% Normal 47-70 [facility] Comment on above: Result Comment: ERASTO ENT DISCHARGED Performed By: #### L 100.0100 ####[facility] [address] [place], [address] PLT Normal 150-450 [facility] Comment on above: Result Comment: ERASTO ENT DISCHARGED Performed By: #### L 100.0100 ####[facility] [address] [place], [address] RBC Normal 4.2-5.4 [facility] Comment on above: Result Comment: ERASTO ENT DISCHARGED Performed By: #### L 100.0100 ####[facility] [address] [place], [address] RDW CV Normal 11.6-14.6 [facility] Comment on above: Result Comment: ERASTO ENT DISCHARGED Performed By: #### L 100.0100 ####[facility] [address] [place], [address] RDW SD Normal 35.1-43.9 [facility] Comment on above: Result Comment: ERASTO ENT DISCHARGED Performed By: #### L 100.0100 ####[facility] [address] [place], [address] WBC Normal 4.4-11.0 [facility] Comment on above: Result Comment: ERASTO ENT DISCHARGED Performed By: #### L 100.0100 ####[facility] [address] [place], [address] CO2 (BldV) [Moles/Vol]Ordere d By: Poli Barfield on 12-31-2024 CO2 [Moles/Vol] 25 mmol/L 23-33 [facility] Carbon dioxide, total [Moles /volume] in Central venous bloodOrdered By: Poli Barfield on 12-31-2024 CO2 [Moles/Vol] 18.2 mmol/L Low 21.0-32.0 [facility] Carbon dioxide, total [Moles /volume] in Central venous bloodOrdered By: David Bain on 12-31-2024 CO2 [Moles/Vol] 21.3 mmol/L 21.0-32.0 [facility] Chloride assayOrdered By: Demetrio Barfield on 12-31-2024 Chloride [Moles/Vol] 108 mmol/L 98-108 [facility] Chloride assayOrdered By: Dwaine Bain on 12-31-2024 Chloride [Moles/Vol] 106 mmol/L 98-108 [facility] Emergency Department Summary on 12-31-2024 Emergency Department Summary Normal [facility] Eosinophil percentageOrdered By: Poli Barfield on 12-31-2024 Eosinophils/100 WBC (Bld) 0.3 % 0-5 [facility] Erythrocyte distribution wid th ratioOrdered By: Poli Barfield on 12-31-2024 Erythrocyte distribution width (RBC) [Ratio] 14.3 % 11.6-14.6 [facility] Erythrocyte distribution wid th standard deviationOrdered By: Poli Barifeld on 12-31-2024 Erythrocyte distribution width (RBC) [Ratio] 43.4 fl 35.1-43.9 [facility] Glomerular filtration rate ( GFR) estimation/1.73 sq m using serum, plasma, or whole bOrdered By: Poli Barfield on 12-31-2024 GFR/1.73 sq M.predicted among non-blacks MDRD (S/P/Bld) [Vol rate/Area] 93 mL/min/{1.73_m2} >60 [facility] Glomerular filtration rate ( GFR) estimation/1.73 sq m using serum, plasma, or whole bOrdered By: David Bain on 12-31-2024 GFR/1.73 sq M.predicted among non-blacks MDRD (S/P/Bld) [Vol rate/Area] 97 mL/min/{1.73_m2} >60 [facility] Comment on above: mL/min/1.73m2 CKD-EP I Creatinine Equation (2020) [facility] deOrdered By: Poli Barfield on 12-31-2024 Glucose [Mass/Vol] 169 mg/dL High 74-106 [facility] Glucose measurement at [facility] deOrdered By: David Bain on 12-31-2024 Glucose [Mass/Vol] 147 mg/dL High 74-106 [facility] Comment on above: MANAGEMENT OF PATIEN T CARE PER NURSING PROTOCOL H AND P Exam - Hospitaliston 12-31-2024 H&P Exam - Hospitalist Normal [facility] Hematocrit Auto (Bld) [Volum e fraction]Ordered By: Poli Barfield on 12-31-2024 Hematocrit (Bld) [Volume fraction] 38.0 % 37-47 [facility] Hemoglobin A1con 12-31-2024 HbA1c (Bld) [Mass fraction] 8.5 % High <=5.6 [facility] Comment on above: Result Comment: Norm al < 5.7 % Prediabetic 5.7 - 6.4 % Diabetic >or= 6.5 % Please note range changes. Performed By: #### L 501.9985 ####[facility] [address] [place], [place], [id number] Hemoglobin A1c percentageOrd ered By: David Bain on 12-31-2024 HbA1c (Bld) [Mass fraction] 8.5 % High <5.7 [facility] Comment on above: Normal < 5.7 % Predi abetic 5.7 - 6.4 % Diabetic >or= 6.5 % Please note range changes. Hemoglobin measurementOrdere d By: Poli Barfield on 12-31-2024 Hemoglobin (Bld) [Mass/Vol] 12.4 g/dL 12.0-15.0 [facility] Immature granulocytes/100 WB C Auto (Bld)Ordered By: Poli Barfield on 12-31-2024 Immature granulocytes/100 WBC (Bld) 0.700 % 0.0-0.9 [facility] Ketones Test strip Ql (U)Ord ered By: Poli Barfield on 12-31-2024 Ketones Ql (U) 5 mg/dl High Negative [facility] MCV (mean corpuscular volume ) determinationOrdered By: Poli Barfield on 12-31-2024 MCV (RBC) [Entitic vol] 83.9 fL 81-99 [facility] Magnesiumon 12-31-2024 Magnesium [Mass/Vol] 1.5 mg/dL Normal 1.5-2.2 [facility] Comment on above: Performed By: #### L 501.9520, L501.5200 ####[facility] [address] [place], [address] Magnesium measurement (mass/ volume)Ordered By: Dewayne Duff on 12-31-2024 Magnesium (Unsp spec) [Mass/Vol] 1.5 mg/dL 1.5-2.2 [facility] Mean corpuscular hemoglobin (MCH) determinationOrdered By: Poli Barfield on 12-31-2024 MCH (RBC) [Entitic mass] 27.4 pg 27.0-32.0 [facility] Monocyte percentageOrdered B y: Poli Barfield on 12-31-2024 Monocytes/100 WBC (Bld) 6.4 % 0-10 [facility] Mucus LM Ql (Urine sed)Order ed By: Poli Barfield on 12-31-2024 Mucus Ql (Urine sed) 0 SEEN /hpf [facility] Neutrophil percentageOrdered By: Poli Barfield on 12-31-2024 Neutrophils/100 WBC (Bld) 64.4 % 47-70 [facility] Nitrite Test strip Ql (U)Ord ered By: Poli Barfield on 12-31-2024 Nitrite Ql (U) Negative Negative [facility] No Panel InformationOrdered By: Poli Barfield on 12-31-2024 ESTRELLA [facility] Not entered [facility] Room Air [facility] Platelet countOrdered By: Demetrio Barfield on 12-31-2024 Platelets (Bld) [#/Vol] 400 10*3/uL 150-450 [facility] Potassium measurement (mass/ volume)Ordered By: Poli Barfield on 12-31-2024 Potassium (Unsp spec) [Mass/Vol] 3.7 mmol/L 3.3-5.1 [facility] Potassium measurement (mass/ volume)Ordered By: David Bain on 12-31-2024 Potassium (Unsp spec) [Mass/Vol] 3.6 mmol/L 3.3-5.1 [facility] ,Urineon 12-31-2024 Beta HCG ( test) Ql (U) Negative Normal [facility] Comment on above: Result Comment: Very dilute urine specimens, as indicated by a low specificgravity, may not contain product sales representative levels of hCG.If is still suspected, a first morning urinespecimen should be collected 48 hours later and tested. Performed By: #### L 400.7600 ####[facility] [address] [place], [place], [address] Protein Test strip Ql (U)Ord ered By: Poli Barfield on 12-31-2024 Protein Ql (U) 30 mg/dl High Negative [facility] RBC Auto (Bld) [#/Vol]Ordere d By: Poli Barfield on 12-31-2024 RBC (Bld) [#/Vol] 4.53 10*6/uL 4.2-5.4 [facility] Serum creatinine measurement (mass/volume)Ordered By: Poli Barfield on 12-31-2024 Creatinine [Mass/Vol] 0.85 mg/dL 0.70-1.20 [facility] Serum creatinine measurement (mass/volume)Ordered By: David Bain on 12-31-2024 Creatinine [Mass/Vol] 0.82 mg/dL 0.70-1.20 [facility] Serum glucose measurement (m ass/volume)Ordered By: Poli Barfield on 12-31-2024 Glucose [Mass/Vol] 177 mg/dL High [facility] Serum glucose measurement (m ass/volume)Ordered By: David Bain on 12-31-2024 Glucose [Mass/Vol] 129 mg/dL High [facility] Serum or plasma calcium hussein urement (mass/volume)Ordered By: Poli Barfield on 12-31-2024 Calcium [Mass/Vol] 8.2 mg/dL 7.6-11.0 [facility] Serum or plasma calcium hussein urement (mass/volume)Ordered By: David Bain on 12-31-2024 Calcium [Mass/Vol] 8.2 mg/dL 7.6-11.0 [facility] Serum or plasma urea nitroge n measurement (mass/volume)Ordered By: Poli Barfield on 12-31-2024 Urea nitrogen [Mass/Vol] 7 mg/dL 10-28 [facility] Serum or plasma urea nitroge n measurement (mass/volume)Ordered By: David Bain on 12-31-2024 Urea nitrogen [Mass/Vol] 8 mg/dL 10-28 [facility] Sodium levelOrdered By: Poli Barfield on 12-31-2024 Sodium [Moles/Vol] 139 mmol/L 133-145 [facility] Sodium levelOrdered By: Darnell Bain on 12-31-2024 Sodium [Moles/Vol] 138 mmol/L 133-145 [facility] Squamous epithelial cells de tection in urine sediment by light microscopyOrdered By: Poli Barfield on 12-31-2024 Epithelial cells.squamous LM Ql (Urine sed) 0-5 SEEN /hpf 5-10 [facility] TSH DL <= 0.005 mIU/L QnOrde red By: Dewayne Duff on 12-31-2024 TSH Qn 0.649 uIU/mL 0.300-4.200 [facility] Thyroid Stim Hormone (TSH)on 12-31-2024 TSH 0.649 uIU/mL Normal 0.300-4.200 [facility] Comment on above: Performed By: #### L 501.9520, L501.5200 ####[facility] [address] [place], [place], [id number] Urinalysis, Completeon 12-31 BACTERIA 3+ /hpf Normal None Seen [facility] Comment on above: Order Comment: CLEAN CATCH Performed By: #### L 400.0001 ####[facility] [address] [place], [place], [phone] EPI,SQUAMOUS 0-5 SEEN Normal 5-10 [facility] Comment on above: Order Comment: CLEAN CATCH Performed By: #### L 400.0001 ####[facility] [address] [place], [address] WBC 0-5 SEEN Normal 0-5 [facility] Comment on above: Order Comment: CLEAN CATCH Performed By: #### L 400.0001 ####[facility] [address] [place], [address] Mucus Ql (Urine sed) 0 SEEN Normal [facility] Comment on above: Order Comment: CLEAN CATCH Performed By: #### L 400.0001 ####[facility] [address] [place], [address] RBC 0 SEEN Normal 0-5 [facility] Comment on above: Order Comment: CLEAN CATCH Performed By: #### L 400.0001 ####[facility] [address] [place], [place], [id number] Urine clarityOrdered By: Devon Barfield on 12-31-2024 Clarity (U) Cloudy Clear [facility] Urine color determinationOrd ered By: Poli Barfield on 12-31-2024 Color (U) Yellow Yellow [facility] Urine glucose detectionOrder ed By: Poli Barfield on 12-31-2024 Glucose Ql (U) Normal mg/dl Normal [facility] Urine leukocyte esterase det ection by dipstickOrdered By: Poli Barfield on 12-31-2024 Leukocyte esterase Test strip Ql (U) 100 /ul High Negative [facility] Urine pHOrdered By: Poli Barfield on 12-31-2024 pH (U) 6.0 [pH] 5.0 - 8.0 [facility] Urine testOrdered By: Dewayne Duff on 12-31-2024 HCG ( test) Ql (U) Negative [facility] Urine sediment bacteria coun t by microscopy (number/high power field)Ordered By: Poli Barfield on 12-31-2024 Bacteria LM.HPF (Urine sed) [#/Area] 3 /[HPF] None Seen [facility] Urine specific gravity measu rementOrdered By: Poli Barfield on 12-31-2024 Specific gravity (U) [Rel density] 1.020 1.002-1.030 [facility] Urine urobilinogen measureme ntOrdered By: Poli Barfield on 12-31-2024 Urobilinogen Ql (U) Normal mg/dl Normal [facility] Venous Blood Gason Blood Gas Type ESTRELLA Normal [facility] Comment on above: Performed By: #### L 9000.0810 ####[facility] [address] [place], [address] CO2 [Moles/Vol] 25 mmol/L Normal 23-33 [facility] Comment on above: Performed By: #### L 9000.0810 ####[facility] [address] [place], [address] HCO3 (Bld) [Moles/Vol] 24 mmol/L Normal 22-26 [facility] Comment on above: Performed By: #### L 9000.0810 ####[facility] [address] [place], [address] O2 Delivery Dev Room Air Normal [facility] Comment on above: Performed By: #### L 9000.0810 ####[facility] [address] [place], [address] SITE Not entered Normal [facility] Comment on above: Performed By: #### L 9000.0810 ####[facility] [address] [place], [address] VBG BE 0 mmol/L Normal -1.0-3.5 [facility] Comment on above: Performed By: #### L 9000.0810 ####[facility] [address] [place], [address] VBG pCO2 30.7 mmHg Low 41-51 [facility] Comment on above: Performed By: #### L 9000.0810 ####[facility] [address] [place], [place], [address] VBG pH 7.49 High 7.32-7.42 [facility] Comment on above: Performed By: #### L 9000.0810 ####[facility] [address] [place], [place], [address] VBG PO2 22 mmHg Low 25-40 [facility] Comment on above: Performed By: #### L 9000.0810 ####[facility] [address] [place], [place], [address] VBG SO2 43 Low 50-70 [facility] Comment on above: Performed By: #### L 9000.0810 ####[facility] [address] [place], [place], [address] Venous blood base excess kedar surementOrdered By: Poli Barfield on 12-31-2024 Base excess Calc (BldV) [Moles/Vol] 0 mmol/L -1.0-3.5 [facility] Venous blood bicarbonate kedar surementOrdered By: Poli Barfield on 12-31-2024 HCO3 (Bld) [Moles/Vol] 24 mmol/L 22-26 [facility] Venous blood pH measurementO rdered By: Poli Barfield on 12-31-2024 pH (BldV) 7.49 [pH] High 7.32-7.42 [facility] Venous blood partial pressur e of carbon dioxide measurementOrdered By: Poli Barfield on 12-31-2024 CO2 (BldV) [Partial pressure] 30.7 mm[Hg] Low 41-51 [facility] Venous blood partial pressur e of oxygen measurementOrdered By: Poli Barfield on 12-31-2024 Oxygen (BldV) [Partial pressure] 22 mm[Hg] Low 25-40 [facility] White blood cell (WBC) count Ordered By: Poli Barfield on 12-31-2024 WBC (Bld) [#/Vol] 9.9 10*3/uL 4.4-11.0 [facility] White blood cell countOrdere d By: Poli Barfield on 12-31-2024 White blood cell count 0-5 SEEN /hpf 0-5 [facility] Absolute lymphocyte countOrd ered By: Poli Barfield on 12-30-2024 Lymphocytes Auto (Unsp spec) [#/Vol] 3.14 10*3/uL 0.83-4.51 [facility] Absolute neutrophil countOrd ered By: Poli Barfield on 12-30-2024 Neutrophils (Bld) [#/Vol] 9.4 10*3/uL High 2.0-7.7 [facility] Amphetamine detection with 1 000 ng/mL as cutoffOrdered By: Poli Barfield on 12-30-2024 Amphetamines Screen method >1000 ng/mL Ql (U) Negative < 200 ng/mL [facility] Anion gap in Serum or Plasma Ordered By: Poli Barfield on 12-30-2024 Anion gap [Moles/Vol] 20 mmol/L High 5-15 [facility] Automated lymphocyte count a s percentage of total leukocytesOrdered By: Poli Barfield on 12-30-2024 Lymphocytes/100 WBC Auto (Unsp spec) 23.6 % 19-41 [facility] BUN/creatinine ratioOrdered By: Poli Barfield on 12-30-2024 Urea nitrogen/Creatinine [Mass ratio] 11.1 mg/mg 10- [facility] Basic Metabolic Profile (BMP )on 12-30-2024 BUN/CRE 11.9 RATIO Normal - [facility] Comment on above: Order Comment: Call with results STAT Performed By: #### L 500.2500 ####[facility] [address] [place], [address] Calcium [Mass/Vol] 8.1 mg/dL Normal 7.6-11.0 [facility] Comment on above: Order Comment: Call with results STAT Performed By: #### L 500.2500 ####[facility] [address] [place], [address] Chloride [Moles/Vol] 106 mmol/L Normal 98-108 [facility] Comment on above: Order Comment: Call MD with results STAT Performed By: #### L 500.2500 ####[facility] [address] [place], [address] CO2 [Moles/Vol] 21.8 mmol/L Normal 21.0-32.0 [facility] Comment on above: Order Comment: Call MD with results STAT Performed By: #### L 500.2500 ####[facility] [address] [place], [address] Creatinine [Mass/Vol] 0.83 mg/dL Normal 0.70-1.20 [facility] Comment on above: Order Comment: Call MD with results STAT Performed By: #### L 500.2500 ####[facility] [address] [place], [address] ECRCL 120.96 ml/min Normal 50-250 [facility] Comment on above: Order Comment: Call MD with results STAT Performed By: #### L 500.2500 ####[facility] [address] [place], [address] GAP 13 Normal 5-15 [facility] Comment on above: Order Comment: Call MD with results STAT Performed By: #### L 500.2500 ####[facility] [address] [place], [address] GFR/1.73 sq M.predicted among non-blacks MDRD (S/P/Bld) [Vol rate/Area] 96 mL/min/{1.73_m2} Normal >60 [facility] Comment on above: Order Comment: Call MD with results STAT Result Comment: mL/m in/1.73m2 CKD-EPI Creatinine Equation (2020) Performed By: #### L 500.2500 ####[facility] [address] [place], [address] Glucose [Mass/Vol] 109 mg/dL High 70-99 [facility] Comment on above: Order Comment: Call MD with results STAT Performed By: #### L 500.2500 ####[facility] [address] [place], [address] Potassium [Moles/Vol] 3.4 mmol/L Normal 3.3-5.1 [facility] Comment on above: Order Comment: Call MD with results STAT Result Comment: Hemo lysis present, Results??could be affected.?? Performed By: #### L 500.2500 ####[facility] [address] [place], [address] Sodium [Moles/Vol] 141 mmol/L Normal 133-145 [facility] Comment on above: Order Comment: Call MD with results STAT Performed By: #### L 500.2500 ####[facility] [address] [place], [address] Urea nitrogen [Mass/Vol] 10 mg/dL Normal 4-19 [facility] Comment on above: Order Comment: Call MD with results STAT Performed By: #### L 500.2500 ####[facility] [address] [place], [address] BUN/CRE 11.9 RATIO Normal 10-20 [facility] Comment on above: Order Comment: Call MD with results STAT Performed By: #### L 500.2500 ####[facility] [address] [place], [address] Calcium [Mass/Vol] 8.1 mg/dL Normal 7.6-11.0 [facility] Comment on above: Order Comment: Call MD with results STAT Performed By: #### L 500.2500 ####[facility] [address] [place], [address] Chloride [Moles/Vol] 104 mmol/L Normal 98-108 [facility] Comment on above: Order Comment: Call MD with results STAT Performed By: #### L 500.2500 ####[facility] [address] [place], [address] CO2 [Moles/Vol] 24.0 mmol/L Normal 21.0-32.0 [facility] Comment on above: Order Comment: Call MD with results STAT Performed By: #### L 500.2500 ####[facility] [address] [place], [address] Creatinine [Mass/Vol] 0.94 mg/dL Normal 0.70-1.20 [facility] Comment on above: Order Comment: Call MD with results STAT Performed By: #### L 500.2500 ####[facility] [address] [place], [address] ECRCL 106.80 ml/min Normal 50-250 [facility] Comment on above: Order Comment: Call MD with results STAT Performed By: #### L 500.2500 ####[facility] [address] [place], [address] GAP 11 Normal 5-15 [facility] Comment on above: Order Comment: Call MD with results STAT Performed By: #### L 500.2500 ####[facility] [address] [place], [address] GFR/1.73 sq M.predicted among non-blacks MDRD (S/P/Bld) [Vol rate/Area] 83 mL/min/{1.73_m2} Normal >60 [facility] Comment on above: Order Comment: Call MD with results STAT Result Comment: mL/m in/1.73m2 CKD-EPI Creatinine Equation (2020) Performed By: #### L 500.2500 ####[facility] [address] [place], [address] Glucose [Mass/Vol] 185 mg/dL High 70-99 [facility] Comment on above: Order Comment: Call MD with results STAT Performed By: #### L 500.2500 ####[facility] [address] [place], [address] Potassium [Moles/Vol] 3.5 mmol/L Normal 3.3-5.1 [facility] Comment on above: Order Comment: Call MD with results STAT Performed By: #### L 500.2500 ####[facility] [address] [place], [address] Sodium [Moles/Vol] 139 mmol/L Normal 133-145 [facility] Comment on above: Order Comment: Call MD with results STAT Performed By: #### L 500.2500 ####[facility] [address] [place], [address] Urea nitrogen [Mass/Vol] 11 mg/dL Normal 4-19 [facility] Comment on above: Order Comment: Call MD with results STAT Performed By: #### L 500.2500 ####[facility] [address] [place], [address] BUN/CRE 12.1 RATIO Normal 10-20 [facility] Comment on above: Order Comment: Call MD with results STAT Performed By: #### L 500.2500 ####[facility] [address] [place], [address] Calcium [Mass/Vol] 8.6 mg/dL Normal 7.6-11.0 [facility] Comment on above: Order Comment: Call MD with results STAT Performed By: #### L 500.2500 ####[facility] [address] [place], [address] Chloride [Moles/Vol] 104 mmol/L Normal 98-108 [facility] Comment on above: Order Comment: Call MD with results STAT Performed By: #### L 500.2500 ####[facility] [address] [place], [address] CO2 [Moles/Vol] 24.0 mmol/L Normal 21.0-32.0 [facility] Comment on above: Order Comment: Call MD with results STAT Performed By: #### L 500.2500 ####[facility] [address] [place], [address] Creatinine [Mass/Vol] 1.03 mg/dL Normal 0.70-1.20 [facility] Comment on above: Order Comment: Call MD with results STAT Performed By: #### L 500.2500 ####[facility] [address] [place], [address] ECRCL 97.47 ml/min Normal 50-250 [facility] Comment on above: Order Comment: Call MD with results STAT Performed By: #### L 500.2500 ####[facility] [address] [place], [address] GAP 13 Normal 5-15 [facility] Comment on above: Order Comment: Call MD with results STAT Performed By: #### L 500.2500 ####[facility] [address] [place], [address] GFR/1.73 sq M.predicted among non-blacks MDRD (S/P/Bld) [Vol rate/Area] 74 mL/min/{1.73_m2} Normal >60 [facility] Comment on above: Order Comment: Call MD with results STAT Result Comment: mL/m in/1.73m2 CKD-EPI Creatinine Equation (2020) Performed By: #### L 500.2500 ####[facility] [address] [place], [address] Glucose [Mass/Vol] 133 mg/dL High 70-99 [facility] Comment on above: Order Comment: Call MD with results STAT Performed By: #### L 500.2500 ####[facility] [address] [place], [address] Potassium [Moles/Vol] 3.4 mmol/L Normal 3.3-5.1 [facility] Comment on above: Order Comment: Call MD with results STAT Performed By: #### L 500.2500 ####[facility] [address] [place], [address] Sodium [Moles/Vol] 141 mmol/L Normal 133-145 [facility] Comment on above: Order Comment: Call MD with results STAT Performed By: #### L 500.2500 ####[facility] [address] [place], [address] Urea nitrogen [Mass/Vol] 13 mg/dL Normal 4-19 [facility] Comment on above: Order Comment: Call MD with results STAT Performed By: #### L 500.2500 ####[facility] [address] [place], [address] BUN Normal 4-19 [facility] Comment on above: Result Comment: DUPL ICATE Performed By: #### L 500.2500 ####[facility] [address] [place], [address] Performed By: #### L 100.0100, L500.2500 ####[facility] [address] [place], [address] BUN/CRE Normal 10-20 [facility] Comment on above: Result Comment: DUPL ICATE Performed By: #### L 500.2500 ####[facility] [address] [place], [address] Performed By: #### L 100.0100, L500.2500 ####[facility] [address] [place], [address] Calcium Normal 7.6-11.0 [facility] Comment on above: Result Comment: DUPL ICATE Performed By: #### L 500.2500 ####[facility] [address] [place], [address] Performed By: #### L 100.0100, L500.2500 ####[facility] [address] [place], [address] CL Normal 98-108 [facility] Comment on above: Result Comment: DUPL ICATE Performed By: #### L 500.2500 ####[facility] [address] [place], [address] Performed By: #### L 100.0100, L500.2500 ####[facility] [address] [place], [address] CO2 Normal 21.0-32.0 [facility] Comment on above: Result Comment: DUPL ICATE Performed By: #### L 500.2500 ####[facility] [address] [place], [address] Performed By: #### L 100.0100, L500.2500 ####[facility] [address] [place], [address] CREAT,SERUM Normal 0.70-1.20 [facility] Comment on above: Result Comment: DUPL ICATE Performed By: #### L 500.2500 ####[facility] [address] [place], [address] Performed By: #### L 100.0100, L500.2500 ####[facility] [address] [place], [address] eGFR Normal >60 [facility] Comment on above: Result Comment: DUPL ICATE Performed By: #### L 500.2500 ####[facility] [address] [place], [address] Performed By: #### L 100.0100, L500.2500 ####[facility] [address] [place], [address] GAP Normal 5-15 [facility] Comment on above: Result Comment: DUPL ICATE Performed By: #### L 500.2500 ####[facility] [address] [place], [address] Performed By: #### L 100.0100, L500.2500 ####[facility] [address] [place], [address] GLU Normal 70-99 [facility] Comment on above: Result Comment: DUPL ICATE Performed By: #### L 500.2500 ####[facility] [address] [place], [address] Performed By: #### L 100.0100, L500.2500 ####[facility] [address] [place], [address] Potassium Normal 3.3-5.1 [facility] Comment on above: Result Comment: DUPL ICATE Performed By: #### L 500.2500 ####[facility] [address] [place], [address] Performed By: #### L 100.0100, L500.2500 ####[facility] [address] [place], [address] Basic Metabolic Profile (BMP) Normal 133-145 [facility] Comment on above: Result Comment: DUPL ICATE Performed By: #### L 500.2500 ####[facility] [address] [place], [address] Performed By: #### L 100.0100, L500.2500 ####[facility] [address] [place], [address] Basophil percentageOrdered B y: Poli Le on 12-30-2024 Basophils/100 WBC (Bld) 0.3 % 0-1 [facility] Bedside Glucoseon 12-30-2024 FINGERSTICK GLU 135 mg/dL High 74-106 [facility] Comment on above: Result Comment: BULL DANITA OF PATIENT CARE PER NURSING PROTOCOL Performed By: #### L 501.080 ####[facility] [address] [place], [address] FINGERSTICK GLU 109 mg/dL High 74-106 [facility] Comment on above: Result Comment: BULL GEMENT OF PATIENT CARE PER NURSING PROTOCOL Performed By: #### L 501.080 ####[facility] [address] [place], [address] FINGERSTICK GLU 96 mg/dL Normal 74-106 [facility] Comment on above: Result Comment: BULL GEMENT OF PATIENT CARE PER NURSING PROTOCOL Performed By: #### L 501.080 ####[facility] [address] [place], [address] FINGERSTICK GLU 108 mg/dL High 74-106 [facility] Comment on above: Result Comment: BULL GEMENT OF PATIENT CARE PER NURSING PROTOCOL Performed By: #### L 501.080 ####[facility] [address] [place], [address] FINGERSTICK GLU 167 mg/dL High 74-106 [facility] Comment on above: Result Comment: BULL GEMENT OF PATIENT CARE PER NURSING PROTOCOL Performed By: #### L 501.080 ####[facility] [address] [place], [address] FINGERSTICK GLU 179 mg/dL High 74-106 [facility] Comment on above: Result Comment: BULL GEMENT OF PATIENT CARE PER NURSING PROTOCOL Performed By: #### L 501.080 ####[facility] [address] [place], [address] FINGERSTICK GLU 131 mg/dL High 74-106 [facility] Comment on above: Result Comment: BULL GEMENT OF PATIENT CARE PER NURSING PROTOCOL Performed By: #### L 501.080 ####[facility] [address] [place], [address] FINGERSTICK GLU 99 mg/dL Normal 74-106 [facility] Comment on above: Result Comment: BULL GEMENT OF PATIENT CARE PER NURSING PROTOCOL Performed By: #### L 501.080 ####[facility] [address] [place], [address] FINGERSTICK GLU 129 mg/dL High 74-106 [facility] Comment on above: Result Comment: BULL GEMENT OF PATIENT CARE PER NURSING PROTOCOL Performed By: #### L 501.080 ####[facility] [address] [place], [address] Beta-Hydroxbytyrateon 2024 BETA-HYDROXYBUT 0.6 mmol/L High 0.0-0.3 [facility] Comment on above: Performed By: #### L 501.6901 ####[facility] [address] [place], [address] BETA-HYDROXYBUT 0.3 mmol/L Normal 0.0-0.3 [facility] Comment on above: Performed By: #### L 501.6901 ####[facility] [address] [place], [address] Bilirubin Test strip Ql (U)O rdered By: Poli Barfield on 12-30-2024 Bilirubin Ql (U) 3 mg/dL High Negative [facility] Comment on above: COLOR OF URINE MAY A FFECT DIPSTICK RESULTS. Bilirubin, totalOrdered By: Poli Barfield on 12-30-2024 Bilirubin [Mass/Vol] 0.65 mg/dL 0.00-1.30 [facility] CBC W/Diff, Automatedon 12-11 Absolute Neut Normal 2.0-7.7 [facility] Comment on above: Result Comment: DUPL ICATE Performed By: #### L 100.0100, L500.2500 ####[facility] [address] [place], [address] HCT Normal 37-47 [facility] Comment on above: Result Comment: DUPL ICATE Performed By: #### L 100.0100, L500.2500 ####[facility] [address] [place], [address] HGB Normal 12.0-15.0 [facility] Comment on above: Result Comment: DUPL ICATE Performed By: #### L 100.0100, L500.2500 ####[facility] [address] [place], [address] MCH Normal 27.0-32.0 [facility] Comment on above: Result Comment: DUPL ICATE Performed By: #### L 100.0100, L500.2500 ####[facility] [address] [place], [address] MCHC Normal 32-36 [facility] Comment on above: Result Comment: DUPL ICATE Performed By: #### L 100.0100, L500.2500 ####[facility] [address] [place], [address] MCV Normal 81-99 [facility] Comment on above: Result Comment: DUPL ICATE Performed By: #### L 100.0100, L500.2500 ####[facility] [address] [place], [address] NEUT% Normal 47-70 [facility] Comment on above: Result Comment: DUPL ICATE Performed By: #### L 100.0100, L500.2500 ####[facility] [address] [place], [address] PLT Normal 150-450 [facility] Comment on above: Result Comment: DUPL ICATE Performed By: #### L 100.0100, L500.2500 ####[facility] [address] [place], [address] RBC Normal 4.2-5.4 [facility] Comment on above: Result Comment: DUPL ICATE Performed By: #### L 100.0100, L500.2500 ####[facility] [address] [place], [address] RDW CV Normal 11.6-14.6 [facility] Comment on above: Result Comment: DUPL ICATE Performed By: #### L 100.0100, L500.2500 ####[facility] [address] [place], [address] RDW SD Normal 35.1-43.9 [facility] Comment on above: Result Comment: DUPL ICATE Performed By: #### L 100.0100, L500.2500 ####[facility] [address] [place], [address] WBC Normal 4.4-11.0 [facility] Comment on above: Result Comment: DUPL ICATE Performed By: #### L 100.0100, L500.2500 ####[facility] [address] [place], [address] Absolute Lymph 3.14 X10 3/uL Normal 0.83-4.51 [facility] Comment on above: Performed By: #### L 100.0100, L501.2450, L700.6800, L505.5000, L500.4050 ####[facility] [address] [place], [address] Absolute Neut 9.4 X10 3/uL High 2.0-7.7 [facility] Comment on above: Performed By: #### L 100.0100, L501.2450, L700.6800, L505.5000, L500.4050 ####[facility] [address] [place], [address] Basophils/100 WBC (Bld) 0.3 % Normal 0-1 [facility] Comment on above: Performed By: #### L 100.0100, L501.2450, L700.6800, L505.5000, L500.4050 ####[facility] [address] [place], [address] Eosinophils/100 WBC (Bld) 0.0 % Normal 0-5 [facility] Comment on above: Performed By: #### L 100.0100, L501.2450, L700.6800, L505.5000, L500.4050 ####[facility] [address] [place], [address] Erythrocyte distribution width (RBC) [Ratio] 14.3 % Normal 11.6-14.6 [facility] Comment on above: Performed By: #### L 100.0100, L501.2450, L700.6800, L505.5000, L500.4050 ####[facility] [address] [place], [address] Hematocrit (Bld) [Volume fraction] 39.2 % Normal 37-47 [facility] Comment on above: Performed By: #### L 100.0100, L501.2450, L700.6800, L505.5000, L500.4050 ####[facility] [address] [place], [address] Hemoglobin (Bld) [Mass/Vol] 13.2 g/dL Normal 12.0-15.0 [facility] Comment on above: Performed By: #### L 100.0100, L501.2450, L700.6800, L505.5000, L500.4050 ####[facility] [address] [place], [address] IG% 0.600 Normal 0.0-0.9 [facility] Comment on above: Result Comment: IG% - Immature Granulocytes (promyelocytes, myelocytes andmetamyelocytes) > 1% indicates that a LEFT SHIFT is Present. Performed By: #### L 100.0100, L501.2450, L700.6800, L505.5000, L500.4050 ####[facility] [address] [place], [address] Lymphocytes/100 WBC (Bld) 23.6 % Normal 19-41 [facility] Comment on above: Performed By: #### L 100.0100, L501.2450, L700.6800, L505.5000, L500.4050 ####[facility] [address] [place], [address] MCH (RBC) [Entitic mass] 27.6 pg Normal 27.0-32.0 [facility] Comment on above: Performed By: #### L 100.0100, L501.2450, L700.6800, L505.5000, L500.4050 ####[facility] [address] [place], [address] MCHC (RBC) [Mass/Vol] 33.7 g/dL Normal 32-36 [facility] Comment on above: Performed By: #### L 100.0100, L501.2450, L700.6800, L505.5000, L500.4050 ####[facility] [address] [place], [address] MCV (RBC) [Entitic vol] 81.8 fL Normal 81-99 [facility] Comment on above: Performed By: #### L 100.0100, L501.2450, L700.6800, L505.5000, L500.4050 ####[facility] [address] [place], [address] Monocytes/100 WBC (Bld) 4.8 % Normal 0-10 [facility] Comment on above: Performed By: #### L 100.0100, L501.2450, L700.6800, L505.5000, L500.4050 ####[facility] [address] [place], [address] Neutrophils/100 WBC (Bld) 70.7 % High 47-70 [facility] Comment on above: Performed By: #### L 100.0100, L501.2450, L700.6800, L505.5000, L500.4050 ####[facility] [address] [place], [address] Nucleated RBC (Bld) [#/Vol] 0 10*3/uL Normal 0-5 [facility] Comment on above: Performed By: #### L 100.0100, L501.2450, L700.6800, L505.5000, L500.4050 ####[facility] [address] [place], [address] Platelet mean volume (Bld) [Entitic vol] 9.7 fL Normal 6.2-12.0 [facility] Comment on above: Performed By: #### L 100.0100, L501.2450, L700.6800, L505.5000, L500.4050 ####[facility] [address] [place], [address] Platelets (Bld) [#/Vol] 430 10*3/uL Normal 150-450 [facility] Comment on above: Performed By: #### L 100.0100, L501.2450, L700.6800, L505.5000, L500.4050 ####[facility] [address] [place], [address] RBC (Bld) [#/Vol] 4.79 10*6/uL Normal 4.2-5.4 [facility] Comment on above: Performed By: #### L 100.0100, L501.2450, L700.6800, L505.5000, L500.4050 ####[facility] [address] [place], [address] RDW SD 41.4 fl Normal 35.1-43.9 [facility] Comment on above: Performed By: #### L 100.0100, L501.2450, L700.6800, L505.5000, L500.4050 ####[facility] [address] [place], [address] WBC (Bld) [#/Vol] 13.3 10*3/uL High 4.4-11.0 [facility] Comment on above: Performed By: #### L 100.0100, L501.2450, L700.6800, L505.5000, L500.4050 ####[facility] [address] [place], [address] CO2 (BldV) [Moles/Vol]Ordere d By: David Bain on 12-30-2024 CO2 [Moles/Vol] 30 mmol/L 23-33 [facility] Carbon dioxide, total [Moles /volume] in Central venous bloodOrdered By: Poli Barfield on 12-30-2024 CO2 [Moles/Vol] 19.2 mmol/L Low 21.0-32.0 [facility] Chloride assayOrdered By: Demetrio Barfield on 12-30-2024 Chloride [Moles/Vol] 97 mmol/L Low 98-108 [facility] Comprehensive Metabolic Prof ilon 12-30-2024 Albumin [Mass/Vol] 4.2 g/dL Normal 3.5-5.0 [facility] Comment on above: Performed By: #### L 100.0100, L501.2450, L700.6800, L505.5000, L500.4050 ####[facility] [address] [place], [address] Albumin/Globulin [Mass ratio] 0.9 {ratio} Normal 0.9-2.4 [facility] Comment on above: Performed By: #### L 100.0100, L501.2450, L700.6800, L505.5000, L500.4050 ####[facility] [address] [place], [address] ALK PHOS 91 U/L Normal 35-104 [facility] Comment on above: Performed By: #### L 100.0100, L501.2450, L700.6800, L505.5000, L500.4050 ####[facility] [address] [place], [address] ALT [Catalytic activity/Vol] 12 U/L Normal <=34 [facility] Comment on above: Performed By: #### L 100.0100, L501.2450, L700.6800, L505.5000, L500.4050 ####[facility] [address] [place], [address] AST [Catalytic activity/Vol] 16 U/L Normal <=31 [facility] Comment on above: Performed By: #### L 100.0100, L501.2450, L700.6800, L505.5000, L500.4050 ####[facility] [address] [place], [address] Bilirubin [Mass/Vol] 0.65 mg/dL Normal 0.00-1.30 [facility] Comment on above: Performed By: #### L 100.0100, L501.2450, L700.6800, L505.5000, L500.4050 ####[facility] [address] [place], [address] BUN/CRE 11.1 RATIO Normal 10-20 [facility] Comment on above: Performed By: #### L 100.0100, L501.2450, L700.6800, L505.5000, L500.4050 ####[facility] [address] [place], [address] Calcium [Mass/Vol] 9.7 mg/dL Normal 7.6-11.0 [facility] Comment on above: Performed By: #### L 100.0100, L501.2450, L700.6800, L505.5000, L500.4050 ####[facility] [address] [place], [address] Chloride [Moles/Vol] 97 mmol/L Low 98-108 [facility] Comment on above: Performed By: #### L 100.0100, L501.2450, L700.6800, L505.5000, L500.4050 ####[facility] [address] [place], [address] CO2 [Moles/Vol] 19.2 mmol/L Low 21.0-32.0 [facility] Comment on above: Performed By: #### L 100.0100, L501.2450, L700.6800, L505.5000, L500.4050 ####[facility] [address] [place], [address] Creatinine [Mass/Vol] 1.22 mg/dL High 0.70-1.20 [facility] Comment on above: Performed By: #### L 100.0100, L501.2450, L700.6800, L505.5000, L500.4050 ####[facility] [address] [place], [address] ECRCL 81.50 ml/min Normal 50-250 [facility] Comment on above: Performed By: #### L 100.0100, L501.2450, L700.6800, L505.5000, L500.4050 ####[facility] [address] [place], [address] GAP 20 High 5-15 [facility] Comment on above: Performed By: #### L 100.0100, L501.2450, L700.6800, L505.5000, L500.4050 ####[facility] [address] [place], [address] GFR/1.73 sq M.predicted among non-blacks MDRD (S/P/Bld) [Vol rate/Area] 60 mL/min/{1.73_m2} Normal >60 [facility] Comment on above: Result Comment: mL/m in/1.73m2 CKD-EPI Creatinine Equation (2020) Performed By: #### L 100.0100, L501.2450, L700.6800, L505.5000, L500.4050 ####[facility] [address] [place], [address] Globulin (S) [Mass/Vol] 4.4 g/dL High 2.2-4.2 [facility] Comment on above: Performed By: #### L 100.0100, L501.2450, L700.6800, L505.5000, L500.4050 ####[facility] [address] [place], [address] Glucose [Mass/Vol] 359 mg/dL High 70-99 [facility] Comment on above: Performed By: #### L 100.0100, L501.2450, L700.6800, L505.5000, L500.4050 ####[facility] [address] [place], [address] Potassium [Moles/Vol] 3.4 mmol/L Normal 3.3-5.1 [facility] Comment on above: Performed By: #### L 100.0100, L501.2450, L700.6800, L505.5000, L500.4050 ####[facility] [address] [place], [address] Sodium [Moles/Vol] 137 mmol/L Normal 133-145 [facility] Comment on above: Performed By: #### L 100.0100, L501.2450, L700.6800, L505.5000, L500.4050 ####[facility] [address] [place], [address] T PROT 8.6 g/dL High 5.9-8.4 [facility] Comment on above: Performed By: #### L 100.0100, L501.2450, L700.6800, L505.5000, L500.4050 ####[facility] [address] [place], [address] Urea nitrogen [Mass/Vol] 14 mg/dL Normal 4-19 [facility] Comment on above: Performed By: #### L 100.0100, L501.2450, L700.6800, L505.5000, L500.4050 ####[facility] [address] [place], [place], [id number] Emergency Department Summary on 12-30-2024 Emergency Department Summary Normal [facility] Eosinophil percentageOrdered By: Poli Barfield on 12-30-2024 Eosinophils/100 WBC (Bld) 0.0 % 0-5 [facility] Erythrocyte distribution wid th ratioOrdered By: Poli Barfield on 12-30-2024 Erythrocyte distribution width (RBC) [Ratio] 14.3 % 11.6-14.6 [facility] Erythrocyte distribution wid th standard deviationOrdered By: Poli Barfield on 12-30-2024 Erythrocyte distribution width (RBC) [Ratio] 41.4 fl 35.1-43.9 [facility] Glomerular filtration rate ( GFR) estimation/1.73 sq m using serum, plasma, or whole bOrdered By: Poli Barfield on 12-30-2024 GFR/1.73 sq M.predicted among non-blacks MDRD (S/P/Bld) [Vol rate/Area] 60 mL/min/{1.73_m2} >60 [facility] Comment on above: mL/min/1.73m2 CKD-EP I Creatinine Equation (2020) H AND P Exam - [facility] 12-30-2024 H&P Exam - Hospitalist Normal [facility] Hematocrit Auto (Bld) [Volum e fraction]Ordered By: Poli Barfield on 12-30-2024 Hematocrit (Bld) [Volume fraction] 39.2 % 37-47 [facility] Hemoglobin measurementOrdere d By: Poli Barfield on 12-30-2024 Hemoglobin (Bld) [Mass/Vol] 13.2 g/dL 12.0-15.0 [facility] Immature granulocytes/100 WB C Auto (Bld)Ordered By: Poli Barfield on 12-30-2024 Immature granulocytes/100 WBC (Bld) 0.600 % 0.0-0.9 [facility] Comment on above: IG% - Immature Granu locytes (promyelocytes, myelocytes and metamyelocytes) > 1% indicates that a LEFT SHIFT is Present. Ketones Test strip Ql (U)Ord ered By: Poli Barfield on 12-30-2024 Ketones Ql (U) 50 mg/dl High Negative [facility] Laboratory - Chemistry and C hemistry - challengeOrdered By: Poli Barfield on 12-30-2024 AST [Catalytic activity/Vol] 16 U/L <32 [facility] Lipaseon 12-30-2024 Lipase [Catalytic activity/Vol] 25 U/L Normal 13-75 [facility] Comment on above: Result Comment: Plea se note:LIPASE revised reference range effective 22.New Lipase methodology. Expected to produce lower valuesthan the previous assay method.NEW Reference Range: 13 - 75 U/L Performed By: #### L 100.0100, L501.2450, L700.6800, L505.5000, L500.4050 ####[facility] [address] [place], [address] Lipase measurementOrdered By : Poli Barfield on 12-30-2024 Lipase [Catalytic activity/Vol] 25 U/L 13-75 [facility] Comment on above: Please note:LIPASE r evised reference range effective 22. New Lipase methodology. Expected to produce lower values than the previous assay method. NEW Reference Range: 13 - 75 U/L MCV (mean corpuscular volume ) determinationOrdered By: Poli Barfield on 12-30-2024 MCV (RBC) [Entitic vol] 81.8 fL 81-99 [facility] Magnesiumon 12-30-2024 Magnesium [Mass/Vol] 1.8 mg/dL Normal 1.5-2.2 [facility] Comment on above: Performed By: #### L 501.5200, L501.7300, L501.2300 ####[facility] [address] [place], [place], [id number] Magnesium measurement (mass/ volume)Ordered By: David Bain on 12-30-2024 Magnesium (Unsp spec) [Mass/Vol] 1.8 mg/dL 1.5-2.2 [facility] Mean corpuscular hemoglobin (MCH) determinationOrdered By: Poli Barfield on 12-30-2024 MCH (RBC) [Entitic mass] 27.6 pg 27.0-32.0 [facility] Mean corpuscular hemoglobin concentration (MCHC) determinationOrdered By: Poli Barfield on 12-30-2024 MCHC (RBC) [Mass/Vol] 33.7 g/dL 32-36 [facility] Mean platelet volume determi nationOrdered By: Poli Barfield on 12-30-2024 Platelet mean volume (Bld) [Entitic vol] 9.7 fL 6.2-12.0 [facility] Microscopic analysis of urin e for red blood cells (RBC)Ordered By: Poli Barfield on 12-30-2024 Microscopic analysis of urine for red blood cells (RBC) 0 SEEN /hpf 0-5 [facility] Monocyte percentageOrdered B y: Poli Barfield on 12-30-2024 Monocytes/100 WBC (Bld) 4.8 % 0-10 [facility] Mucus LM Ql (Urine sed)Order ed By: Poli Barfield on 12-30-2024 Mucus Ql (Urine sed) 0 SEEN /hpf [facility] Neutrophil percentageOrdered By: Poli Barfield on 12-30-2024 Neutrophils/100 WBC (Bld) 70.7 % High 47-70 [facility] Nitrite Test strip Ql (U)Ord ered By: Poli Barfield on 12-30-2024 Nitrite Ql (U) Negative Negative [facility] No Panel InformationOrdered By: David Bain on 12-30-2024 Blood Gas Sample Site Not entered [facility] Blood Gas Specimen Type ESTRELLA [facility] Oxygen Delivery Device Room Air [facility] ESTRELLA [facility] Not entered [facility] Room Air [facility] No Panel InformationOrdered By: Poli Barfield on 12-30-2024 Urine Buprenorphine Qualitative Negative < 200 ng/mL [facility] Urine Oxycodone Screen Negative < 100 ng/mL [facility] Negative < 200 ng/mL [facility] 16 U/L <32 [facility] Nucleated red blood cell per centageOrdered By: Poli Barfield on 12-30-2024 Nucleated RBC/100 WBC (Bld) [Ratio] 0 % 0-5 [facility] Osmolality, Serumon 12-31-19 25 OSMOLALITY,SER 302 mOsm/KG High 275-295 [facility] Comment on above: Order Comment: Comme nts: Add to ER Lab draw Performed By: #### L 501.5200, L501.7300, L501.2300 ####[facility] [address] [place], [address] Phosphoruson 12-30-2024 Phosphate [Mass/Vol] 1.5 mg/dL Low 2.7-4.5 [facility] Comment on above: Performed By: #### L 501.5200, L501.7300, L501.2300 ####[facility] [address] [place], [address] Platelet countOrdered By: Demetrio Barfield on 12-30-2024 Platelets (Bld) [#/Vol] 430 10*3/uL 150-450 [facility] Potassium measurement (mass/ volume)Ordered By: Poli Barfield on 12-30-2024 Potassium (Unsp spec) [Mass/Vol] 3.4 mmol/L 3.3-5.1 [facility] ,Serum,hCG Quali.on 12-30-2024 HCG, SERUM QUAL Negative Normal [facility] Comment on above: Performed By: #### L 100.0100, L501.2450, L700.6800, L505.5000, L500.4050 ####[facility] [address] [place], [address] Protein Test strip Ql (U)Ord ered By: Poli Barfield on 12-30-2024 Protein Ql (U) 30 mg/dl High Negative [facility] Quantitative urine opiates m easurementOrdered By: Poli Barfield on 12-30-2024 Opiates Ql (U) Negative < 300 ng/mL [facility] RBC Auto (Bld) [#/Vol]Ordere d By: Poli Barfield on 12-30-2024 RBC (Bld) [#/Vol] 4.79 10*6/uL 4.2-5.4 [facility] Screening urine fentanyl kedar surementOrdered By: Poli Barfield on 12-30-2024 fentaNYL Screen Ql (U) Negative [facility] Serum beta-hCG test, qualita tiveOrdered By: Poli Barfield on 12-30-2024 Beta HCG ( test) Ql Negative [facility] Serum creatinine measurement (mass/volume)Ordered By: Poli Barfield on 12-30-2024 Creatinine [Mass/Vol] 1.22 mg/dL High 0.70-1.20 [facility] Serum globulin measurementOr dered By: Poli Barfield on 12-30-2024 Globulin (S) [Mass/Vol] 4.4 g/dL High 2.2-4.2 [facility] Serum glucose measurement (m ass/volume)Ordered By: Poli Barfield on 12-30-2024 Glucose [Mass/Vol] 359 mg/dL High 70-99 [facility] Serum or plasma alanine jordan otransferase (ALT) measurementOrdered By: Poli Barfield on 12-30-2024 ALT [Catalytic activity/Vol] 12 U/L <35 [facility] Serum or plasma albumin hussein urement (mass/volume)Ordered By: Poli Barfield on 12-30-2024 Albumin [Mass/Vol] 4.2 g/dL 3.5-5.0 [facility] Serum or plasma albumin/glob ulin mass ratioOrdered By: Poli Barfield on 12-30-2024 Albumin/Globulin [Mass ratio] 0.9 {ratio} 0.9-2.4 [facility] Serum or plasma alkaline bradley sphatase measurementOrdered By: Poli Barfield 12-30-2024 ALP [Catalytic activity/Vol] 91 U/L 35-104 [facility] Serum or plasma calcium hussein urement (mass/volume)Ordered By: Poli Barfield on 12-30-2024 Calcium [Mass/Vol] 9.7 mg/dL 7.6-11.0 [facility] Serum or plasma urea nitroge n measurement (mass/volume)Ordered By: Poli Barfield on 12-30-2024 Urea nitrogen [Mass/Vol] 14 mg/dL 4-19 [facility] Sodium levelOrdered By: Poli Barfield on 12-30-2024 Sodium [Moles/Vol] 137 mmol/L 133-145 [facility] Squamous epithelial cells de tection in urine sediment by light microscopyOrdered By: Poli Barfield on 12-30-2024 Epithelial cells.squamous LM Ql (Urine sed) 10-25 SEEN /hpf 11-18 [facility] Total proteinOrdered By: Devon Barfield on 12-30-2024 Protein [Mass/Vol] 8.6 g/dL High 5.9-8.4 [facility] Urinalysis, Completeon 12-30 EPI,SQUAMOUS 10-25 SEEN Normal - [facility] Comment on above: Order Comment: CLEAN CATCH Performed By: #### L 400.0001 ####[facility] [address] [place], [address] WBC 5-10 SEEN Normal 0-[address] [place] [address] Comment on above: Order Comment: CLEAN CATCH Performed By: #### L 400.0001 ####[facility] [address] [place], [address] BACTERIA 0 SEEN Normal None Seen [facility] Comment on above: Order Comment: CLEAN CATCH Performed By: #### L 400.0001 ####[facility] [address] [place], [address] Mucus Ql (Urine sed) 0 SEEN Normal [facility] Comment on above: Order Comment: CLEAN CATCH Performed By: #### L 400.0001 ####[facility] [address] [place], [address] RBC 0 SEEN Normal 0-5 [facility] Comment on above: Order Comment: CLEAN CATCH Performed By: #### L 400.0001 ####[facility] [address] [place], [address] Urine Drug Screen (VISTA)on 12-30-2024 AMPHETAMINES Negative Normal <1000 ng/mL [facility] Comment on above: Performed By: #### L 100.0100, L501.2450, L700.6800, L505.5000, L500.4050 ####[facility] [address] [place], [address] BARBITIURATES Negative Normal < 200 ng/mL [facility] Comment on above: Performed By: #### L 100.0100, L501.2450, L700.6800, L505.5000, L500.4050 ####[facility] [address] [place], [phone] BENZODIAZIPINE Negative Normal < 200 ng/mL [facility] Comment on above: Performed By: #### L 100.0100, L501.2450, L700.6800, L505.5000, L500.4050 ####[facility] [address] [place], [address] BUP Ur Drug Scr Negative Normal < 200 ng/mL [facility] Comment on above: Performed By: #### L 100.0100, L501.2450, L700.6800, L505.5000, L500.4050 ####[facility] [address] [place], [address] COCAINE Negative Normal < 300 ng/mL [facility] Comment on above: Performed By: #### L 100.0100, L501.2450, L700.6800, L505.5000, L500.4050 ####[facility] [address] [place], [address] Fentanyl Negative Normal [facility] Comment on above: Performed By: #### L 100.0100, L501.2450, L700.6800, L505.5000, L500.4050 ####[facility] [address] [place], [address] METHADONE Negative Normal < 300 ng/mL [facility] Comment on above: Performed By: #### L 100.0100, L501.2450, L700.6800, L505.5000, L500.4050 ####[facility] [address] [place], [address] OPIATES Negative Normal < 300 ng/mL [facility] Comment on above: Performed By: #### L 100.0100, L501.2450, L700.6800, L505.5000, L500.4050 ####[facility] [address] [place], [address] OXYCODONE Negative Normal < 100 ng/mL [facility] Comment on above: Performed By: #### L 100.0100, L501.2450, L700.6800, L505.5000, L500.4050 ####[facility] [address] [place], [address] PCP Negative Normal < 25 ng/mL [facility] Comment on above: Performed By: #### L 100.0100, L501.2450, L700.6800, L505.5000, L500.4050 ####[facility] [address] [place], [address] THC Positive Normal < 50 ng/mL [facility] Comment on above: Result Comment: If c onfirmation testing is needed, a separate order will berequired to send out testing to the reference laboratory. Performed By: #### L 100.0100, L501.2450, L700.6800, L505.5000, L500.4050 ####[facility] [address] [place], [address] Urine benzodiazepine levelOr dered By: Poli Barfield on 12-30-2024 Benzodiazepines Ql (U) Negative < 200 ng/mL [facility] Urine clarityOrdered By: Devon Barfield on 12-30-2024 Clarity (U) Sl. Cloudy Clear [facility] Urine cocaine levelOrdered B y: Poli Barfield on 12-30-2024 Cocaine Ql (U) Negative < 300 ng/mL [facility] Urine color determinationOrd ered By: Poli Barfield on 12-30-2024 Color (U) Yellow Yellow [facility] Urine cultureOrdered By: Devon Barfield on 12-30-2024 Bacteria identified Cx Nom (U) Positive Abnormal [facility] Urine ekdht-5-hckivlibtefahd abinol (THC) measurementOrdered By: Poli Barfield on 12-30-2024 Cannabinoids Screen Ql (U) Positive < 50 ng/mL [facility] Comment on above: If confirmation test ing is needed, a separate order will be required to send out testing to the reference laboratory. Urine glucose detectionOrder ed By: Poli Barfield on 12-30-2024 Glucose Ql (U) 1000 mg/dl High Normal [facility] Urine leukocyte esterase det ection by dipstickOrdered By: Poli Barfield on 12-30-2024 Leukocyte esterase Test strip Ql (U) 500 /ul High Negative [facility] Urine pHOrdered By: Poli Barfield on 12-30-2024 pH (U) 5.0 [pH] 5.0 - 8.0 [facility] Urine phencyclidine (PCP) de tectionOrdered By: Poli Barfield on 12-30-2024 Phencyclidine Ql (U) Negative < 25 ng/mL [facility] Urine sediment bacteria coun t by microscopy (number/high power field)Ordered By: Poli Barfield on 12-30-2024 Bacteria LM.HPF (Urine sed) [#/Area] 0 /[HPF] None Seen [facility] Urine specific gravity measu rementOrdered By: Poli Barfield on 12-30-2024 Specific gravity (U) [Rel density] 1.025 1.002-1.030 [facility] Urine urobilinogen measureme ntOrdered By: Poli Barfield on 12-30-2024 Urobilinogen Ql (U) 1 mg/dl High Normal [facility] Venous Blood Gason 5 Blood Gas Type ESTRELLA Normal [facility] Comment on above: Performed By: #### L 9000.0810 ####[facility] [address] [place], [address] CO2 [Moles/Vol] 30 mmol/L Normal 23-33 [facility] Comment on above: Performed By: #### L 9000.0810 ####[facility] [address] [place], [address] HCO3 (Bld) [Moles/Vol] 29 mmol/L High 22-26 [facility] Comment on above: Performed By: #### L 9000.0810 ####[facility] [address] [place], [address] O2 Delivery Dev Room Air Normal [facility] Comment on above: Performed By: #### L 9000.0810 ####[facility] [address] [place], [address] SITE Not entered Normal [facility] Comment on above: Performed By: #### L 9000.0810 ####[facility] [address] [place], [address] VBG BE 5 mmol/L High -1.0-3.5 [facility] Comment on above: Performed By: #### L 9000.0810 ####[facility] [address] [place], [address] VBG pCO2 42.2 mmHg Normal 41-51 [facility] Comment on above: Performed By: #### L 9000.0810 ####[facility] [address] [place], [address] VBG pH 7.45 High 7.32-7.42 [facility] Comment on above: Performed By: #### L 9000.0810 ####[facility] [address] [place], [place], [address] VBG PO2 34 mmHg Normal 25-40 [facility] Comment on above: Performed By: #### L 9000.0810 ####[facility] [address] [place], [place], [address] VBG SO2 68 Normal 50-70 [facility] Comment on above: Performed By: #### L 9000.0810 ####[facility] [address] [place], [place], [address] Venous blood base excess kedar surementOrdered By: David Bain on 12-30-2024 Base excess Calc (BldV) [Moles/Vol] 5 mmol/L High -1.0-3.5 [facility] Venous blood bicarbonate kedar surementOrdered By: David Bain on 12-30-2024 HCO3 (Bld) [Moles/Vol] 29 mmol/L High 22-26 [facility] Venous blood oxygen saturati on measurementOrdered By: David Bain on 12-30-2024 Oxygen saturation in Blood 68 % 50-70 [facility] Venous blood pH measurementO rdered By: David Bain on 12-30-2024 pH (BldV) 7.45 [pH] High 7.32-7.42 [facility] Venous blood partial pressur e of carbon dioxide measurementOrdered By: David Bain on 12-30-2024 CO2 (BldV) [Partial pressure] 42.2 mm[Hg] 41-51 [facility] Venous blood partial pressur e of oxygen measurementOrdered By: David Bain on 12-30-2024 Oxygen (BldV) [Partial pressure] 34 mm[Hg] 25-40 [facility] White blood cell (WBC) count Ordered By: Poli Barfield on 12-30-2024 WBC (Bld) [#/Vol] 13.3 10*3/uL High 4.4-11.0 [facility] White blood cell countOrdere d By: Poli Barfield on 12-30-2024 White blood cell count 5-10 SEEN /hpf 0-5 [facility] Abdomen Limitedon 12-25-2024 Abdomen Limited Normal [facility] Absolute lymphocyte countOrd ered By: Nayana Peter on 12-13-2024 Lymphocytes Auto (Unsp spec) [#/Vol] 3.52 10*3/uL 0.83-4.51 [facility] Absolute neutrophil countOrd ered By: Nayana Peter on 12-13-2024 Neutrophils (Bld) [#/Vol] 5.0 10*3/uL 2.0-7.7 [facility] Anion gap in Serum or Plasma Ordered By: Nayana Peter on 12-13-2024 Anion gap [Moles/Vol] 13 mmol/L 5-15 [facility] Automated lymphocyte count a s percentage of total leukocytesOrdered By: Nayana Peter on 12-13-2024 Lymphocytes/100 WBC Auto (Unsp spec) 36.7 % 19-41 [facility] BUN/creatinine ratioOrdered By: Nayana Peter on 12-13-2024 Urea nitrogen/Creatinine [Mass ratio] 6.2 mg/mg Low 10-20 [facility] Basophil percentageOrdered B y: Nayana Peter on 12-13-2024 Basophils/100 WBC (Bld) 0.8 % 0-1 [facility] Bilirubin, totalOrdered By: Nayana Peter on 12-13-2024 Bilirubin [Mass/Vol] 0.30 mg/dL 0.00-1.30 [facility] CBC W/Diff, Automatedon Absolute Lymph 3.52 X10 3/uL Normal 0.83-4.51 [facility] Comment on above: Performed By: #### L 500.4050, L100.0100 ####[facility] [address] [place], [address] Absolute Neut 5.0 X10 3/uL Normal 2.0-7.7 [facility] Comment on above: Performed By: #### L 500.4050, L100.0100 ####[facility] [address] [place], [address] Basophils/100 WBC (Bld) 0.8 % Normal 0-1 [facility] Comment on above: Performed By: #### L 500.4050, L100.0100 ####[facility] [address] [place], [address] Eosinophils/100 WBC (Bld) 2.0 % Normal 0-5 [facility] Comment on above: Performed By: #### L 500.4050, L100.0100 ####[facility] [address] [place], [address] Erythrocyte distribution width (RBC) [Ratio] 14.0 % Normal 11.6-14.6 [facility] Comment on above: Performed By: #### L 500.4050, L100.0100 ####[facility] [address] [place], [address] Hematocrit (Bld) [Volume fraction] 40.5 % Normal 37-47 [facility] Comment on above: Performed By: #### L 500.4050, L100.0100 ####[facility] [address] [place], [address] Hemoglobin (Bld) [Mass/Vol] 13.2 g/dL Normal 12.0-15.0 [facility] Comment on above: Performed By: #### L 500.4050, L100.0100 ####[facility] [address] [place], [address] IG% 0.800 Normal 0.0-0.9 [facility] Comment on above: Result Comment: IG% - Immature Granulocytes (promyelocytes, myelocytes andmetamyelocytes) > 1% indicates that a LEFT SHIFT is Present. Performed By: #### L 500.4050, L100.0100 ####[facility] [address] [place], [address] Lymphocytes/100 WBC (Bld) 36.7 % Normal 19-41 [facility] Comment on above: Performed By: #### L 500.4050, L100.0100 ####[facility] [address] [place], [address] MCH (RBC) [Entitic mass] 27.1 pg Normal 27.0-32.0 [facility] Comment on above: Performed By: #### L 500.4050, L100.0100 ####[facility] [address] [place], [address] MCHC (RBC) [Mass/Vol] 32.6 g/dL Normal 32-36 [facility] Comment on above: Performed By: #### L 500.4050, L100.0100 ####[facility] [address] [place], [address] MCV (RBC) [Entitic vol] 83.2 fL Normal 81-99 [facility] Comment on above: Performed By: #### L 500.4050, L100.0100 ####[facility] [address] [place], [address] Monocytes/100 WBC (Bld) 7.5 % Normal 0-10 [facility] Comment on above: Performed By: #### L 500.4050, L100.0100 ####[facility] [address] [place], [address] Neutrophils/100 WBC (Bld) 52.2 % Normal 47-70 [facility] Comment on above: Performed By: #### L 500.4050, L100.0100 ####[facility] [address] [place], [address] Nucleated RBC (Bld) [#/Vol] 0 10*3/uL Normal 0-5 [facility] Comment on above: Performed By: #### L 500.4050, L100.0100 ####[facility] [address] [place], [address] Platelet mean volume (Bld) [Entitic vol] 10.1 fL Normal 6.2-12.0 [facility] Comment on above: Performed By: #### L 500.4050, L100.0100 ####[facility] [address] [place], [address] Platelets (Bld) [#/Vol] 367 10*3/uL Normal 150-450 [facility] Comment on above: Performed By: #### L 500.4050, L100.0100 ####[facility] [address] [place], [address] RBC (Bld) [#/Vol] 4.87 10*6/uL Normal 4.2-5.4 [facility] Comment on above: Performed By: #### L 500.4050, L100.0100 ####[facility] [address] [place], [address] RDW SD 42.3 fl Normal 35.1-43.9 [facility] Comment on above: Performed By: #### L 500.4050, L100.0100 ####[facility] [address] [place], [address] WBC (Bld) [#/Vol] 9.6 10*3/uL Normal 4.4-11.0 [facility] Comment on above: Performed By: #### L 500.4050, L100.0100 ####[facility] [address] [place], [address] Carbon dioxide, total [Moles /volume] in Central venous bloodOrdered By: Nayana Peter on 12-13-2024 CO2 [Moles/Vol] 26.2 mmol/L 21.0-32.0 [facility] Chloride assayOrdered By: Tiffanie Peter on 12-13-2024 Chloride [Moles/Vol] 99 mmol/L 98-108 [facility] Comprehensive Metabolic Prof ilon 12-13-2024 Albumin [Mass/Vol] 3.8 g/dL Normal 3.5-5.0 [facility] Comment on above: Performed By: #### L 500.4050, L100.0100 ####[facility] [address] [place], [address] Albumin/Globulin [Mass ratio] 1.2 {ratio} Normal 0.9-2.4 [facility] Comment on above: Performed By: #### L 500.4050, L100.0100 ####[facility] [address] [place], [address] ALK PHOS 100 U/L Normal 35-104 [facility] Comment on above: Performed By: #### L 500.4050, L100.0100 ####[facility] [address] [place], [address] ALT [Catalytic activity/Vol] 36 U/L High <=34 [facility] Comment on above: Performed By: #### L 500.4050, L100.0100 ####[facility] [address] [place], [address] AST [Catalytic activity/Vol] 37 U/L High <=31 [facility] Comment on above: Performed By: #### L 500.4050, L100.0100 ####[facility] [address] [place], [address] Bilirubin [Mass/Vol] 0.30 mg/dL Normal 0.00-1.30 [facility] Comment on above: Performed By: #### L 500.4050, L100.0100 ####[facility] [address] [place], [address] BUN/CRE 6.2 RATIO Low 10-20 [facility] Comment on above: Performed By: #### L 500.4050, L100.0100 ####[facility] [address] [place], [address] Calcium [Mass/Vol] 8.8 mg/dL Normal 7.6-11.0 [facility] Comment on above: Performed By: #### L 500.4050, L100.0100 ####[facility] [address] [place], [address] Chloride [Moles/Vol] 99 mmol/L Normal 98-108 [facility] Comment on above: Performed By: #### L 500.4050, L100.0100 ####[facility] [address] [place], [address] CO2 [Moles/Vol] 26.2 mmol/L Normal 21.0-32.0 [facility] Comment on above: Performed By: #### L 500.4050, L100.0100 ####[facility] [address] [place], [address] Creatinine [Mass/Vol] 0.86 mg/dL Normal 0.70-1.20 [facility] Comment on above: Performed By: #### L 500.4050, L100.0100 ####[facility] [address] [place], [address] GAP 13 Normal 5-15 [facility] Comment on above: Performed By: #### L 500.4050, L100.0100 ####[facility] [address] [place], [address] GFR/1.73 sq M.predicted among non-blacks MDRD (S/P/Bld) [Vol rate/Area] 92 mL/min/{1.73_m2} Normal >60 [facility] Comment on above: Result Comment: mL/m in/1.73m2 CKD-EPI Creatinine Equation (2020) Performed By: #### L 500.4050, L100.0100 ####[facility] [address] [place], [address] Globulin (S) [Mass/Vol] 3.3 g/dL Normal 2.2-4.2 [facility] Comment on above: Performed By: #### L 500.4050, L100.0100 ####[facility] [address] [place], [address] Glucose [Mass/Vol] 251 mg/dL High 70-99 [facility] Comment on above: Performed By: #### L 500.4050, L100.0100 ####[facility] [address] [place], [address] Potassium [Moles/Vol] 4.0 mmol/L Normal 3.3-5.1 [facility] Comment on above: Performed By: #### L 500.4050, L100.0100 ####[facility] [address] [place], [address] Sodium [Moles/Vol] 139 mmol/L Normal 133-145 [facility] Comment on above: Performed By: #### L 500.4050, L100.0100 ####[facility] [address] [place], [address] T PROT 7.2 g/dL Normal 5.9-8.4 [facility] Comment on above: Performed By: #### L 500.4050, L100.0100 ####[facility] [address] [place], [address] Urea nitrogen [Mass/Vol] 5 mg/dL Normal 4-19 [facility] Comment on above: Performed By: #### L 500.4050, L100.0100 ####[facility] [address] [place], [address] Eosinophil percentageOrdered By: Nayana Peter on 12-13-2024 Eosinophils/100 WBC (Bld) 2.0 % 0-5 [facility] Erythrocyte distribution wid th ratioOrdered By: Nayana Peter on 12-13-2024 Erythrocyte distribution width (RBC) [Ratio] 14.0 % 11.6-14.6 [facility] Erythrocyte distribution wid th standard deviationOrdered By: Nayana Peter on 12-13-2024 Erythrocyte distribution width (RBC) [Ratio] 42.3 fl 35.1-43.9 [facility] Gastroenterology Visit Repor ton 12-13-2024 Gastroenterology Visit Report Normal [facility] Glomerular filtration rate ( GFR) estimation/1.73 sq m using serum, plasma, or whole bOrdered By: Nayana Peter on 12-13-2024 GFR/1.73 sq M.predicted among non-blacks MDRD (S/P/Bld) [Vol rate/Area] 92 mL/min/{1.73_m2} >60 [facility] Comment on above: mL/min/1.73m2 CKD-EP I Creatinine Equation (2020) Hematocrit Auto (Bld) [Volum e fraction]Ordered By: Nayana Peter on 12-13-2024 Hematocrit (Bld) [Volume fraction] 40.5 % 37-47 [facility] Hemoglobin measurementOrdere d By: Nayana Peter on 12-13-2024 Hemoglobin (Bld) [Mass/Vol] 13.2 g/dL 12.0-15.0 [facility] Immature granulocytes/100 WB C Auto (Bld)Ordered By: Nayana Peter on 12-13-2024 Immature granulocytes/100 WBC (Bld) 0.800 % 0.0-0.9 [facility] Comment on above: IG% - Immature Granu locytes (promyelocytes, myelocytes and metamyelocytes) > 1% indicates that a LEFT SHIFT is Present. Laboratory - Chemistry and C hemistry - challengeOrdered By: Nayana Peter on 12-13-2024 AST [Catalytic activity/Vol] 37 U/L High <32 [facility] MCV (mean corpuscular volume ) determinationOrdered By: Nayana Peter on 12-13-2024 MCV (RBC) [Entitic vol] 83.2 fL 81-99 [facility] Mean corpuscular hemoglobin (MCH) determinationOrdered By: Nayana Peter on 12-13-2024 MCH (RBC) [Entitic mass] 27.1 pg 27.0-32.0 [facility] Mean corpuscular hemoglobin concentration (MCHC) determinationOrdered By: Nayana Peter on 12-13-2024 MCHC (RBC) [Mass/Vol] 32.6 g/dL 32-36 [facility] Mean platelet volume determi nationOrdered By: Nayana Peter on 12-13-2024 Platelet mean volume (Bld) [Entitic vol] 10.1 fL 6.2-12.0 [facility] Monocyte percentageOrdered B y: Nayana Peter on 12-13-2024 Monocytes/100 WBC (Bld) 7.5 % 0-10 [facility] Neutrophil percentageOrdered By: Nayana Peter on 12-13-2024 Neutrophils/100 WBC (Bld) 52.2 % 47-70 [facility] No Panel InformationOrdered By: Nayana Peter on 12-13-2024 37 U/L High <32 [facility] Nucleated red blood cell per centageOrdered By: Nayana Peter 12-13-2024 Nucleated RBC/100 WBC (Bld) [Ratio] 0 % 0-5 [facility] Platelet countOrdered By: Tiffanie Peter on 12-13-2024 Platelets (Bld) [#/Vol] 367 10*3/uL 150-450 [facility] Potassium measurement (mass/ volume)Ordered By: Nayana Peter on 12-13-2024 Potassium (Unsp spec) [Mass/Vol] 4.0 mmol/L 3.3-5.1 [facility] RBC Auto (Bld) [#/Vol]Ordere d By: Nayana Peter on 12-13-2024 RBC (Bld) [#/Vol] 4.87 10*6/uL 4.2-5.4 [facility] Serum creatinine measurement (mass/volume)Ordered By: Nayana Peter 12-13-2024 Creatinine [Mass/Vol] 0.86 mg/dL 0.70-1.20 [facility] Serum globulin measurementOr dered By: Nayana Peter on 12-13-2024 Globulin (S) [Mass/Vol] 3.3 g/dL 2.2-4.2 [facility] Serum glucose measurement (m ass/volume)Ordered By: Nayana Peter on 12-13-2024 Glucose [Mass/Vol] 251 mg/dL High 70-99 [facility] Serum or plasma alanine jordan otransferase (ALT) measurementOrdered By: Nayana Peter on 12-13-2024 ALT [Catalytic activity/Vol] 36 U/L High <35 [facility] Serum or plasma albumin hussein urement (mass/volume)Ordered By: Nayana Peter on 12-13-2024 Albumin [Mass/Vol] 3.8 g/dL 3.5-5.0 [facility] Serum or plasma albumin/glob ulin mass ratioOrdered By: Nayana Peter on 12-13-2024 Albumin/Globulin [Mass ratio] 1.2 {ratio} 0.9-2.4 [facility] Serum or plasma alkaline bradley sphatase measurementOrdered By: Nayana Peter on 12-13-2024 ALP [Catalytic activity/Vol] 100 U/L 35-104 [facility] Serum or plasma calcium hussein urement (mass/volume)Ordered By: Nayana Peter on 12-13-2024 Calcium [Mass/Vol] 8.8 mg/dL 7.6-11.0 [facility] Serum or plasma urea nitroge n measurement (mass/volume)Ordered By: Nayana Peter on 12-13-2024 Urea nitrogen [Mass/Vol] 5 mg/dL 4-19 [facility] Sodium levelOrdered By: Oh Peter on 12-13-2024 Sodium [Moles/Vol] 139 mmol/L 133-145 [facility] Total proteinOrdered By: Candie Peter on 12-13-2024 Protein [Mass/Vol] 7.2 g/dL 5.9-8.4 [facility] White blood cell (WBC) count Ordered By: Nayana Peter on 12-13-2024 WBC (Bld) [#/Vol] 9.6 10*3/uL 4.4-11.0 [facility] Culture, Blood (WB)on 2024 CUB Blood cultures x2, f rom two different sites No growth in 5 days. Normal [facility] Comment on above: Performed By: #### M 200.1000, L503.6005 ####[facility] [address] [place], [address] CUB Blood cultures x2, f rom two different sites No growth in 5 days. Normal [facility] Comment on above: Performed By: #### M 200.1000 ####[facility] [address] [place], [address] Absolute lymphocyte countOrd ered By: Gale Lr on 11-28-2024 Lymphocytes Auto (Unsp spec) [#/Vol] 5.24 10*3/uL High 0.83-4.51 [facility] Absolute neutrophil countOrd ered By: Gale Lr on 11-28-2024 Neutrophils (Bld) [#/Vol] 6.1 10*3/uL 2.0-7.7 [facility] Anion gap in Serum or Plasma Ordered By: Gale Lr on 11-28-2024 Anion gap [Moles/Vol] 12 mmol/L 11-23 [facility] Automated lymphocyte count a s percentage of total leukocytesOrdered By: Gale Lr on 11-28-2024 Lymphocytes/100 WBC Auto (Unsp spec) 43.0 % High - [facility] BUN/creatinine ratioOrdered By: Gale Lr on 11-28-2024 Urea nitrogen/Creatinine [Mass ratio] 12.2 mg/mg 04-30 [facility] Basic Metabolic Profile (BMP )on 11-28-2024 BUN Normal - [facility] Comment on above: Result Comment: DUPL ICATE Performed By: #### L 500.2500, L100.0100 ####[facility] [address] [place], [address] BUN/CRE Normal 04-30 [facility] Comment on above: Result Comment: DUPL ICATE Performed By: #### L 500.2500, L100.0100 ####[facility] [address] [place], [address] Calcium Normal 7.6-11.0 [facility] Comment on above: Result Comment: DUPL ICATE Performed By: #### L 500.2500, L100.0100 ####[facility] [address] [place], [address] CL Normal 98-108 [facility] Comment on above: Result Comment: DUPL ICATE Performed By: #### L 500.2500, L100.0100 ####[facility] [address] [place], [address] CO2 Normal 21.0-32.0 [facility] Comment on above: Result Comment: DUPL ICATE Performed By: #### L 500.2500, L100.0100 ####[facility] [address] [place], [address] CREAT,SERUM Normal 0.70-1.20 [facility] Comment on above: Result Comment: DUPL ICATE Performed By: #### L 500.2500, L100.0100 ####[facility] [address] [place], [address] eGFR Normal >60 [facility] Comment on above: Result Comment: DUPL ICATE Performed By: #### L 500.2500, L100.0100 ####[facility] [address] [place], [address] GAP Normal 5-15 [facility] Comment on above: Result Comment: DUPL ICATE Performed By: #### L 500.2500, L100.0100 ####[facility] [address] [place], [address] GLU Normal 70-99 [facility] Comment on above: Result Comment: DUPL ICATE Performed By: #### L 500.2500, L100.0100 ####[facility] [address] [place], [address] Potassium Normal 3.3-5.1 [facility] Comment on above: Result Comment: DUPL ICATE Performed By: #### L 500.2500, L100.0100 ####[facility] [address] [place], [address] Basic Metabolic Profile (BMP) Normal 133-145 [facility] Comment on above: Result Comment: DUPL ICATE Performed By: #### L 500.2500, L100.0100 ####[facility] [address] [place], [address] BUN/CRE 12.2 RATIO Normal 10-20 [facility] Comment on above: Performed By: #### L 500.2500, L100.0100 ####[facility] [address] [place], [address] Calcium [Mass/Vol] 7.9 mg/dL Normal 7.6-11.0 [facility] Comment on above: Performed By: #### L 500.2500, L100.0100 ####[facility] [address] [place], [address] Chloride [Moles/Vol] 104 mmol/L Normal 98-108 [facility] Comment on above: Performed By: #### L 500.2500, L100.0100 ####[facility] [address] [place], [address] CO2 [Moles/Vol] 24.7 mmol/L Normal 21.0-32.0 [facility] Comment on above: Performed By: #### L 500.2500, L100.0100 ####[facility] [address] [place], [address] Creatinine [Mass/Vol] 1.02 mg/dL Normal 0.70-1.20 [facility] Comment on above: Performed By: #### L 500.2500, L100.0100 ####[facility] [address] [place], [address] ECRCL 99.83 ml/min Normal 50-250 [facility] Comment on above: Performed By: #### L 500.2500, L100.0100 ####[facility] [address] [place], [address] GAP 12 Normal 5-15 [facility] Comment on above: Performed By: #### L 500.2500, L100.0100 ####[facility] [address] [place], [address] GFR/1.73 sq M.predicted among non-blacks MDRD (S/P/Bld) [Vol rate/Area] 75 mL/min/{1.73_m2} Normal >60 [facility] Comment on above: Result Comment: mL/m in/1.73m2 CKD-EPI Creatinine Equation (2020) Performed By: #### L 500.2500, L100.0100 ####[facility] [address] [place], [address] Glucose [Mass/Vol] 134 mg/dL High 70-99 [facility] Comment on above: Performed By: #### L 500.2500, L100.0100 ####[facility] [address] [place], [address] Potassium [Moles/Vol] 3.5 mmol/L Normal 3.3-5.1 [facility] Comment on above: Performed By: #### L 500.2500, L100.0100 ####[facility] [address] [place], [address] Sodium [Moles/Vol] 141 mmol/L Normal 133-145 [facility] Comment on above: Performed By: #### L 500.2500, L100.0100 ####[facility] [address] [place], [address] Urea nitrogen [Mass/Vol] 12 mg/dL Normal 4-19 [facility] Comment on above: Performed By: #### L 500.2500, L100.0100 ####[facility] [address] [place], [address] Basophil percentageOrdered B y: Gale Lr on 11-28-2024 Basophils/100 WBC (Bld) 0.6 % 0-1 [facility] Bedside Glucoseon 11-28-2024 FINGERSTICK GLU 127 mg/dL High 74-106 [facility] Comment on above: Result Comment: BULL [place] OF PATIENT CARE PER NURSING PROTOCOL Performed By: #### L 501.080 ####[facility] [address] [place], [address] CBC W/Diff, Automatedon 11-10 Absolute Neut Normal 2.0-7.7 [facility] Comment on above: Result Comment: DUPL ICATE Performed By: #### L 500.2500, L100.0100 ####[facility] [address] [place], [address] HCT Normal 37-47 [facility] Comment on above: Result Comment: DUPL ICATE Performed By: #### L 500.2500, L100.0100 ####[facility] [address] [place], [address] HGB Normal 12.0-15.0 [facility] Comment on above: Result Comment: DUPL ICATE Performed By: #### L 500.2500, L100.0100 ####[facility] [address] [place], [address] MCH Normal 27.0-32.0 [facility] Comment on above: Result Comment: DUPL ICATE Performed By: #### L 500.2500, L100.0100 ####[facility] [address] [place], [address] MCHC Normal 32-36 [facility] Comment on above: Result Comment: DUPL ICATE Performed By: #### L 500.2500, L100.0100 ####[facility] [address] [place], [address] MCV Normal 81-99 [facility] Comment on above: Result Comment: DUPL ICATE Performed By: #### L 500.2500, L100.0100 ####[facility] [address] [place], [address] NEUT% Normal 47-70 [facility] Comment on above: Result Comment: DUPL ICATE Performed By: #### L 500.2500, L100.0100 ####[facility] [address] [place], [address] PLT Normal 150-450 [facility] Comment on above: Result Comment: DUPL ICATE Performed By: #### L 500.2500, L100.0100 ####[facility] [address] [place], [address] RBC Normal 4.2-5.4 [facility] Comment on above: Result Comment: DUPL ICATE Performed By: #### L 500.2500, L100.0100 ####[facility] [address] [place], [address] RDW CV Normal 11.6-14.6 [facility] Comment on above: Result Comment: DUPL ICATE Performed By: #### L 500.2500, L100.0100 ####[facility] [address] [place], [address] RDW SD Normal 35.1-43.9 [facility] Comment on above: Result Comment: DUPL ICATE Performed By: #### L 500.2500, L100.0100 ####[facility] [address] [place], [address] WBC Normal 4.4-11.0 [facility] Comment on above: Result Comment: DUPL ICATE Performed By: #### L 500.2500, L100.0100 ####[facility] [address] [place], [address] Absolute Lymph 5.24 X10 3/uL High 0.83-4.51 [facility] Comment on above: Performed By: #### L 500.2500, L100.0100 ####[facility] [address] [place], [address] Absolute Neut 6.1 X10 3/uL Normal 2.0-7.7 [facility] Comment on above: Performed By: #### L 500.2500, L100.0100 ####[facility] [address] [place], [address] Basophils/100 WBC (Bld) 0.6 % Normal 0-1 [facility] Comment on above: Performed By: #### L 500.2500, L100.0100 ####[facility] [address] [place], [address] Eosinophils/100 WBC (Bld) 0.5 % Normal 0-5 [facility] Comment on above: Performed By: #### L 500.2500, L100.0100 ####[facility] [address] [place], [address] Erythrocyte distribution width (RBC) [Ratio] 13.7 % Normal 11.6-14.6 [facility] Comment on above: Performed By: #### L 500.2500, L100.0100 ####[facility] [address] [place], [address] Hematocrit (Bld) [Volume fraction] 37.0 % Normal 37-47 [facility] Comment on above: Performed By: #### L 500.2500, L100.0100 ####[facility] [address] [place], [address] Hemoglobin (Bld) [Mass/Vol] 12.1 g/dL Normal 12.0-15.0 [facility] Comment on above: Performed By: #### L 500.2500, L100.0100 ####[facility] [address] [place], [address] IG% 0.800 Normal 0.0-0.9 [facility] Comment on above: Result Comment: IG% - Immature Granulocytes (promyelocytes, myelocytes andmetamyelocytes) > 1% indicates that a LEFT SHIFT is Present. Performed By: #### L 500.2500, L100.0100 ####[facility] [address] [place], [address] Lymphocytes/100 WBC (Bld) 43.0 % High 19-41 [facility] Comment on above: Performed By: #### L 500.2500, L100.0100 ####[facility] [address] [place], [address] MCH (RBC) [Entitic mass] 27.3 pg Normal 27.0-32.0 [facility] Comment on above: Performed By: #### L 500.2500, L100.0100 ####[facility] [address] [place], [address] MCHC (RBC) [Mass/Vol] 32.7 g/dL Normal 32-36 [facility] Comment on above: Performed By: #### L 500.2500, L100.0100 ####[facility] [address] [place], [address] MCV (RBC) [Entitic vol] 83.3 fL Normal 81-99 [facility] Comment on above: Performed By: #### L 500.2500, L100.0100 ####[facility] [address] [place], [address] Monocytes/100 WBC (Bld) 5.3 % Normal 0-10 [facility] Comment on above: Performed By: #### L 500.2500, L100.0100 ####[facility] [address] [place], [address] Neutrophils/100 WBC (Bld) 49.8 % Normal 47-70 [facility] Comment on above: Performed By: #### L 500.2500, L100.0100 ####[facility] [address] [place], [address] Nucleated RBC (Bld) [#/Vol] 0 10*3/uL Normal 0-5 [facility] Comment on above: Performed By: #### L 500.2500, L100.0100 ####[facility] [address] [place], [address] Platelet mean volume (Bld) [Entitic vol] 9.3 fL Normal 6.2-12.0 [facility] Comment on above: Performed By: #### L 500.2500, L100.0100 ####[facility] [address] [place], [address] Platelets (Bld) [#/Vol] 400 10*3/uL Normal 150-450 [facility] Comment on above: Performed By: #### L 500.2500, L100.0100 ####[facility] [address] [place], [address] RBC (Bld) [#/Vol] 4.44 10*6/uL Normal 4.2-5.4 [facility] Comment on above: Performed By: #### L 500.2500, L100.0100 ####[facility] [address] [place], [address] RDW SD 41.8 fl Normal 35.1-43.9 [facility] Comment on above: Performed By: #### L 500.2500, L100.0100 ####[facility] [address] [place], [address] WBC (Bld) [#/Vol] 12.2 10*3/uL High 4.4-11.0 [facility] Comment on above: Performed By: #### L 500.2500, L100.0100 ####[facility] [address] [place], [address] Carbon dioxide, total [Moles /volume] in Central venous bloodOrdered By: Gale Lr on 11-28-2024 CO2 [Moles/Vol] 24.7 mmol/L 21.0-32.0 [facility] Chloride assayOrdered By: Sun Lr on 11-28-2024 Chloride [Moles/Vol] 104 mmol/L 98-108 [facility] Eosinophil percentageOrdered By: Gale Lr on 11-28-2024 Eosinophils/100 WBC (Bld) 0.5 % 0-5 [facility] Erythrocyte distribution wid th ratioOrdered By: Gale Lr on 11-28-2024 Erythrocyte distribution width (RBC) [Ratio] 13.7 % 11.6-14.6 [facility] Erythrocyte distribution wid th standard deviationOrdered By: Gale Lr on 11-28-2024 Erythrocyte distribution width (RBC) [Ratio] 41.8 fl 35.1-43.9 [facility] Glomerular filtration rate ( GFR) estimation/1.73 sq m using serum, plasma, or whole bOrdered By: Gale Lr on 11-28-2024 GFR/1.73 sq M.predicted among non-blacks MDRD (S/P/Bld) [Vol rate/Area] 75 mL/min/{1.73_m2} >60 [facility] Comment on above: mL/min/1.73m2 CKD-EP I Creatinine Equation (2020) Glucose measurement at bedsi deOrdered By: Gale Lr on 11-28-2024 Glucose [Mass/Vol] 127 mg/dL High 74-106 [facility] Comment on above: MANAGEMENT OF PATIEN T CARE PER NURSING PROTOCOL Hematocrit Auto (Bld) [Volum e fraction]Ordered By: Gale Lr on 11-28-2024 Hematocrit (Bld) [Volume fraction] 37.0 % 37-47 [facility] Hemoglobin measurementOrdere d By: Gale Lr on 11-28-2024 Hemoglobin (Bld) [Mass/Vol] 12.1 g/dL 12.0-15.0 [facility] Immature granulocytes/100 WB C Auto (Bld)Ordered By: Gale Lr on 11-28-2024 Immature granulocytes/100 WBC (Bld) 0.800 % 0.0-0.9 [facility] Comment on above: IG% - Immature Granu locytes (promyelocytes, myelocytes and metamyelocytes) > 1% indicates that a LEFT SHIFT is Present. MCV (mean corpuscular volume ) determinationOrdered By: Gale Lr on 11-28-2024 MCV (RBC) [Entitic vol] 83.3 fL 81-99 [facility] Mean corpuscular hemoglobin (MCH) determinationOrdered By: Gale Lr on 11-28-2024 MCH (RBC) [Entitic mass] 27.3 pg 27.0-32.0 [facility] Mean corpuscular hemoglobin concentration (MCHC) determinationOrdered By: Gale Lr on 11-28-2024 MCHC (RBC) [Mass/Vol] 32.7 g/dL 32-36 [facility] Mean platelet volume determi nationOrdered By: Gale Lr on 11-28-2024 Platelet mean volume (Bld) [Entitic vol] 9.3 fL 6.2-12.0 [facility] Monocyte percentageOrdered B y: Gale Lr on 11-28-2024 Monocytes/100 WBC (Bld) 5.3 % 0-10 [facility] Neutrophil percentageOrdered By: Gale Lr on 11-28-2024 Neutrophils/100 WBC (Bld) 49.8 % 47-70 [facility] Nucleated red blood cell per centageOrdered By: Gale Lr on 11-28-2024 Nucleated RBC/100 WBC (Bld) [Ratio] 0 % 0-5 [facility] Platelet countOrdered By: Sun Lr on 11-28-2024 Platelets (Bld) [#/Vol] 400 10*3/uL 150-450 [facility] Potassium measurement (mass/ volume)Ordered By: Gale Lr on 11-28-2024 Potassium (Unsp spec) [Mass/Vol] 3.5 mmol/L 3.3-5.1 [facility] RBC Auto (Bld) [#/Vol]Ordere d By: Gale Lr on 11-28-2024 RBC (Bld) [#/Vol] 4.44 10*6/uL 4.2-5.4 [facility] Serum creatinine measurement (mass/volume)Ordered By: Gale Lr on 11-28-2024 Creatinine [Mass/Vol] 1.02 mg/dL 0.70-1.20 [facility] Serum glucose measurement (m ass/volume)Ordered By: Gale Lr on 11-28-2024 Glucose [Mass/Vol] 134 mg/dL High 70-99 [facility] Serum or plasma calcium hussein urement (mass/volume)Ordered By: Gale Lr on 11-28-2024 Calcium [Mass/Vol] 7.9 mg/dL 7.6-11.0 [facility] Serum or plasma urea nitroge n measurement (mass/volume)Ordered By: Gale Lr on 11-28-2024 Urea nitrogen [Mass/Vol] 12 mg/dL 10-28 [facility] Sodium levelOrdered By: Argelia Lr on 11-28-2024 Sodium [Moles/Vol] 141 mmol/L 133-145 [facility] White blood cell (WBC) count Ordered By: Gale Lr on 11-28-2024 WBC (Bld) [#/Vol] 12.2 10*3/uL High 4.4-11.0 [facility] Abdomen/Pelvis WITH Contrast on 11-27-2024 Abdomen/Pelvis WITH Contrast Normal [facility] Basic Metabolic Profile (BMP )on 11-27-2024 BUN/CRE 15.0 RATIO Normal 04-30 [facility] Comment on above: Performed By: #### L 500.2500, L100.0100 ####[facility] [address], [address] Calcium [Mass/Vol] 7.9 mg/dL Normal 7.6-11.0 [facility] Comment on above: Performed By: #### L 500.2500, L100.0100 ####[facility] [address] [place], [address] Chloride [Moles/Vol] 102 mmol/L Normal 98-108 [facility] Comment on above: Performed By: #### L 500.2500, L100.0100 ####[facility] [address] [place], [address] CO2 [Moles/Vol] 24.2 mmol/L Normal 21.0-32.0 [facility] Comment on above: Performed By: #### L 500.2500, L100.0100 ####[facility] [address] [place], [address] Creatinine [Mass/Vol] 1.07 mg/dL Normal 0.70-1.20 [facility] Comment on above: Performed By: #### L 500.2500, L100.0100 ####[facility] [address] [place], [address] ECRCL 95.16 ml/min Normal 50-250 [facility] Comment on above: Performed By: #### L 500.2500, L100.0100 ####[facility] [address] [place], [address] GAP 13 Normal 5-15 [facility] Comment on above: Performed By: #### L 500.2500, L100.0100 ####[facility] [address] [place], [address] GFR/1.73 sq M.predicted among non-blacks MDRD (S/P/Bld) [Vol rate/Area] 71 mL/min/{1.73_m2} Normal >60 [facility] Comment on above: Result Comment: mL/m in/1.73m2 CKD-EPI Creatinine Equation (2021) Performed By: #### L 500.2500, L100.0100 ####[facility] [address] [place], [address] Glucose [Mass/Vol] 217 mg/dL High 70-99 [facility] Comment on above: Performed By: #### L 500.2500, L100.0100 ####[facility] [address] [place], [address] Potassium [Moles/Vol] 4.1 mmol/L Normal 3.3-5.1 [facility] Comment on above: Performed By: #### L 500.2500, L100.0100 ####[facility] [address] [place], [address] Sodium [Moles/Vol] 139 mmol/L Normal 133-145 [facility] Comment on above: Performed By: #### L 500.2500, L100.0100 ####[facility] [address] [place], [address] Urea nitrogen [Mass/Vol] 16 mg/dL Normal 4-19 [facility] Comment on above: Performed By: #### L 500.2500, L100.0100 ####[facility] [address] [place], [address] Bedside Glucoseon 11-27-2024 FINGERSTICK GLU 175 mg/dL High 74-106 [facility] Comment on above: Result Comment: BULL GEMENT OF PATIENT CARE PER NURSING PROTOCOL Performed By: #### L 501.080 ####[facility] [address] [place], [address] FINGERSTICK GLU 147 mg/dL High 74-106 [facility] Comment on above: Result Comment: BULL GEMENT OF PATIENT CARE PER NURSING PROTOCOL Performed By: #### L 501.080 ####[facility] [address] [place], [address] FINGERSTICK GLU 197 mg/dL High 74-106 [facility] Comment on above: Result Comment: BULL GEMENT OF PATIENT CARE PER NURSING PROTOCOL Performed By: #### L 501.080 ####[facility] [address] [place], [address] FINGERSTICK GLU 185 mg/dL High 74-106 [facility] Comment on above: Result Comment: BULL GEMENT OF PATIENT CARE PER NURSING PROTOCOL Performed By: #### L 501.080 ####[facility] [address] [place], [address] Bilirubin directOrdered By: Gale Lr on 11-27-2024 Bilirubin.direct [Mass/Vol] 0.14 mg/dL 0.00-0.30 [facility] Bilirubin, totalOrdered By: Gale Lr on 11-27-2024 Bilirubin [Mass/Vol] 0.35 mg/dL 0.00-1.30 [facility] CBC W/Diff, Automatedon 11-09 Absolute Lymph 2.31 X10 3/uL Normal 0.83-4.51 [facility] Comment on above: Performed By: #### L 500.2500, L100.0100 ####[facility] [address] [place], [address] Absolute Neut 9.7 X10 3/uL High 2.0-7.7 [facility] Comment on above: Performed By: #### L 500.2500, L100.0100 ####[facility] [address] [place], [address] Basophils/100 WBC (Bld) 0.2 % Normal 0-1 [facility] Comment on above: Performed By: #### L 500.2500, L100.0100 ####[facility] [address] [place], [address] Eosinophils/100 WBC (Bld) 0.0 % Normal 0-5 [facility] Comment on above: Performed By: #### L 500.2500, L100.0100 ####[facility] [address] [place], [address] Erythrocyte distribution width (RBC) [Ratio] 13.8 % Normal 11.6-14.6 [facility] Comment on above: Performed By: #### L 500.2500, L100.0100 ####[facility] [address] [place], [address] Hematocrit (Bld) [Volume fraction] 34.7 % Low 37-47 [facility] Comment on above: Performed By: #### L 500.2500, L100.0100 ####[facility] [address] [place], [address] Hemoglobin (Bld) [Mass/Vol] 11.3 g/dL Low 12.0-15.0 [facility] Comment on above: Performed By: #### L 500.2500, L100.0100 ####[facility] [address] [place], [address] IG% 0.600 Normal 0.0-0.9 [facility] Comment on above: Result Comment: IG% - Immature Granulocytes (promyelocytes, myelocytes andmetamyelocytes) > 1% indicates that a LEFT SHIFT is Present. Performed By: #### L 500.2500, L100.0100 ####[facility] [address] [place], [address] Lymphocytes/100 WBC (Bld) 18.1 % Low 19-41 [facility] Comment on above: Performed By: #### L 500.2500, L100.0100 ####[facility] [address] [place], [address] MCH (RBC) [Entitic mass] 27.0 pg Normal 27.0-32.0 [facility] Comment on above: Performed By: #### L 500.2500, L100.0100 ####[facility] [address] [place], [address] MCHC (RBC) [Mass/Vol] 32.6 g/dL Normal 32-36 [facility] Comment on above: Performed By: #### L 500.2500, L100.0100 ####[facility] [address] [place], [address] MCV (RBC) [Entitic vol] 83.0 fL Normal 81-99 [facility] Comment on above: Performed By: #### L 500.2500, L100.0100 ####[facility] [address] [place], [address] Monocytes/100 WBC (Bld) 5.2 % Normal 0-10 [facility] Comment on above: Performed By: #### L 500.2500, L100.0100 ####[facility] [address] [place], [address] Neutrophils/100 WBC (Bld) 75.9 % High 47-70 [facility] Comment on above: Performed By: #### L 500.2500, L100.0100 ####[facility] [address] [place], [address] Nucleated RBC (Bld) [#/Vol] 0 10*3/uL Normal 0-5 [facility] Comment on above: Performed By: #### L 500.2500, L100.0100 ####[facility] [address] [place], [address] Platelet mean volume (Bld) [Entitic vol] 9.6 fL Normal 6.2-12.0 [facility] Comment on above: Performed By: #### L 500.2500, L100.0100 ####[facility] [address] [place], [address] Platelets (Bld) [#/Vol] 354 10*3/uL Normal 150-450 [facility] Comment on above: Performed By: #### L 500.2500, L100.0100 ####[facility] [address] [place], [address] RBC (Bld) [#/Vol] 4.18 10*6/uL Low 4.2-5.4 [facility] Comment on above: Performed By: #### L 500.2500, L100.0100 ####[facility] [address] [place], [address] RDW SD 42.2 fl Normal 35.1-43.9 [facility] Comment on above: Performed By: #### L 500.2500, L100.0100 ####[facility] [address] [place], [address] WBC (Bld) [#/Vol] 12.8 10*3/uL High 4.4-11.0 [facility] Comment on above: Performed By: #### L 500.2500, L100.0100 ####[facility] [address] [place], [address] Laboratory - Chemistry and C hemistry - challengeOrdered By: Gale Lr on 11-27-2024 AST [Catalytic activity/Vol] 21 U/L <32 [facility] Liver Profileon 11-27-2024 Albumin [Mass/Vol] 3.5 g/dL Normal 3.5-5.0 [facility] Comment on above: Performed By: #### L 500.3400 ####[facility] [address] [place], [address] ALK PHOS 88 U/L Normal 35-104 [facility] Comment on above: Performed By: #### L 500.3400 ####[facility] [address] [place], [address] ALT [Catalytic activity/Vol] 12 U/L Normal <=34 [facility] Comment on above: Performed By: #### L 500.3400 ####[facility] [address] [place], [address] AST [Catalytic activity/Vol] 21 U/L Normal <=31 [facility] Comment on above: Performed By: #### L 500.3400 ####[facility] [address] [place], [address] Bilirubin [Mass/Vol] 0.35 mg/dL Normal 0.00-1.30 [facility] Comment on above: Performed By: #### L 500.3400 ####[facility] [address] [place], [address] Bilirubin.direct [Mass/Vol] 0.14 mg/dL Normal 0.00-0.30 [facility] Comment on above: Performed By: #### L 500.3400 ####[facility] [address] [place], [address] Globulin (S) [Mass/Vol] 3.6 g/dL Normal 2.2-4.2 [facility] Comment on above: Performed By: #### L 500.3400 ####[facility] [address] [place], [address] T PROT 7.1 g/dL Normal 5.9-8.4 [facility] Comment on above: Performed By: #### L 500.3400 ####[facility] [address] [place], [address] No Panel InformationOrdered By: Gale Lr on 11-27-2024 21 U/L <32 [facility] Serum globulin measurementOr dered By: Gale Lr on 11-27-2024 Globulin (S) [Mass/Vol] 3.6 g/dL 2.2-4.2 [facility] Serum or plasma alanine jordan otransferase (ALT) measurementOrdered By: Gale Lr on 11-27-2024 ALT [Catalytic activity/Vol] 12 U/L <35 [facility] Serum or plasma albumin hussein urement (mass/volume)Ordered By: Gale Lr on 11-27-2024 Albumin [Mass/Vol] 3.5 g/dL 3.5-5.0 [facility] Serum or plasma alkaline bradley sphatase measurementOrdered By: Gale Lr on 11-27-2024 ALP [Catalytic activity/Vol] 88 U/L 35-104 [facility] Total proteinOrdered By: Sugar Lr on 11-27-2024 Protein [Mass/Vol] 7.1 g/dL 5.9-8.4 [facility] Abdomen Single Viewon 2024 Abdomen Single View Normal [facility] Basic Metabolic Profile (BMP )on 11-26-2024 BUN/CRE 15.0 RATIO Normal 10-20 [facility] Comment on above: Performed By: #### L 500.2500, L100.0100 ####[facility] [address] [place], [address] Calcium [Mass/Vol] 7.8 mg/dL Normal 7.6-11.0 [facility] Comment on above: Performed By: #### L 500.2500, L100.0100 ####[facility] [address] [place], [address] Chloride [Moles/Vol] 104 mmol/L Normal 98-108 [facility] Comment on above: Performed By: #### L 500.2500, L100.0100 ####[facility] [address] [place], [address] CO2 [Moles/Vol] 22.6 mmol/L Normal 21.0-32.0 [facility] Comment on above: Performed By: #### L 500.2500, L100.0100 ####[facility] [address] [place], [address] Creatinine [Mass/Vol] 1.16 mg/dL Normal 0.70-1.20 [facility] Comment on above: Performed By: #### L 500.2500, L100.0100 ####[facility] [address] [place], [address] ECRCL 87.78 ml/min Normal 50-250 [facility] Comment on above: Performed By: #### L 500.2500, L100.0100 ####[facility] [address] [place], [address] GAP 11 Normal 5-15 [facility] Comment on above: Performed By: #### L 500.2500, L100.0100 ####[facility] [address] [place], [address] GFR/1.73 sq M.predicted among non-blacks MDRD (S/P/Bld) [Vol rate/Area] 64 mL/min/{1.73_m2} Normal >60 [facility] Comment on above: Result Comment: mL/m in/1.73m2 CKD-EPI Creatinine Equation (2020) Performed By: #### L 500.2500, L100.0100 ####[facility] [address] [place], [address] Glucose [Mass/Vol] 148 mg/dL High 70-99 [facility] Comment on above: Performed By: #### L 500.2500, L100.0100 ####[facility] [address] [place], [address] Potassium [Moles/Vol] 4.0 mmol/L Normal 3.3-5.1 [facility] Comment on above: Performed By: #### L 500.2500, L100.0100 ####[facility] [address] [place], [address] Sodium [Moles/Vol] 137 mmol/L Normal 133-145 [facility] Comment on above: Performed By: #### L 500.2500, L100.0100 ####[facility] [address] [place], [address] Urea nitrogen [Mass/Vol] 17 mg/dL Normal 4-19 [facility] Comment on above: Performed By: #### L 500.2500, L100.0100 ####[facility] [address] [place], [address] Bedside Glucoseon 11-26-2024 FINGERSTICK GLU 185 mg/dL High 74-106 [facility] Comment on above: Result Comment: BULL GEMENT OF PATIENT CARE PER NURSING PROTOCOL Performed By: #### L 501.080 ####[facility] [address] [place], [address] FINGERSTICK GLU 218 mg/dL High -106 [facility] Comment on above: Result Comment: BULL GEMENT OF PATIENT CARE PER NURSING PROTOCOL Performed By: #### L 501.080 ####[facility] [address] [place], [address] FINGERSTICK GLU 202 mg/dL High -106 [facility] Comment on above: Result Comment: BULL GEMENT OF PATIENT CARE PER NURSING PROTOCOL Performed By: #### L 501.080 ####[facility] [address] [place], [address] FINGERSTICK GLU 160 mg/dL High 74-106 [facility] Comment on above: Result Comment: BULL GEMENT OF PATIENT CARE PER NURSING PROTOCOL Performed By: #### L 501.080 ####[facility] [address] [place], [address] FINGERSTICK GLU 166 mg/dL High 74-106 [facility] Comment on above: Result Comment: BULL GEMENT OF PATIENT CARE PER NURSING PROTOCOL Performed By: #### L 501.080 ####[facility] [address] [place], [address] CBC W/Diff, Automatedon 05- Absolute Lymph 3.42 X10 3/uL Normal 0.83-4.51 [facility] Comment on above: Performed By: #### L 500.2500, L100.0100 ####[facility] [address] [place], [address] Absolute Neut 12.9 X10 3/uL High 2.0-7.7 [facility] Comment on above: Performed By: #### L 500.2500, L100.0100 ####[facility] [address] [place], [address] Basophils/100 WBC (Bld) 0.2 % Normal 0-1 [facility] Comment on above: Performed By: #### L 500.2500, L100.0100 ####[facility] [address] [place], [address] Eosinophils/100 WBC (Bld) 0.2 % Normal 0-5 [facility] Comment on above: Performed By: #### L 500.2500, L100.0100 ####[facility] [address] [place], [address] Erythrocyte distribution width (RBC) [Ratio] 13.9 % Normal 11.6-14.6 [facility] Comment on above: Performed By: #### L 500.2500, L100.0100 ####[facility] [address] [place], [address] Hematocrit (Bld) [Volume fraction] 34.2 % Low 37-47 [facility] Comment on above: Performed By: #### L 500.2500, L100.0100 ####[facility] [address] [place], [address] Hemoglobin (Bld) [Mass/Vol] 11.0 g/dL Low 12.0-15.0 [facility] Comment on above: Performed By: #### L 500.2500, L100.0100 ####[facility] [address] [place], [address] IG% 0.600 Normal 0.0-0.9 [facility] Comment on above: Result Comment: IG% - Immature Granulocytes (promyelocytes, myelocytes andmetamyelocytes) > 1% indicates that a LEFT SHIFT is Present. Performed By: #### L 500.2500, L100.0100 ####[facility] [address] [place], [address] Lymphocytes/100 WBC (Bld) 19.4 % Normal 19-41 [facility] Comment on above: Performed By: #### L 500.2500, L100.0100 ####[facility] [address] [place], [address] MCH (RBC) [Entitic mass] 27.0 pg Normal 27.0-32.0 [facility] Comment on above: Performed By: #### L 500.2500, L100.0100 ####[facility] [address] [place], [address] MCHC (RBC) [Mass/Vol] 32.2 g/dL Normal 32-36 [facility] Comment on above: Performed By: #### L 500.2500, L100.0100 ####[facility] [address] [place], [address] MCV (RBC) [Entitic vol] 83.8 fL Normal 81-99 [facility] Comment on above: Performed By: #### L 500.2500, L100.0100 ####[facility] [address] [place], [address] Monocytes/100 WBC (Bld) 6.2 % Normal 0-10 [facility] Comment on above: Performed By: #### L 500.2500, L100.0100 ####[facility] [address] [place], [address] Neutrophils/100 WBC (Bld) 73.4 % High 47-70 [facility] Comment on above: Performed By: #### L 500.2500, L100.0100 ####[facility] [address] [place], [address] Nucleated RBC (Bld) [#/Vol] 0 10*3/uL Normal 0-5 [facility] Comment on above: Performed By: #### L 500.2500, L100.0100 ####[facility] [address] [place], [address] Platelet mean volume (Bld) [Entitic vol] 9.8 fL Normal 6.2-12.0 [facility] Comment on above: Performed By: #### L 500.2500, L100.0100 ####[facility] [address] [place], [address] Platelets (Bld) [#/Vol] 308 10*3/uL Normal 150-450 [facility] Comment on above: Performed By: #### L 500.2500, L100.0100 ####[facility] [address] [place], [address] RBC (Bld) [#/Vol] 4.08 10*6/uL Low 4.2-5.4 [facility] Comment on above: Performed By: #### L 500.2500, L100.0100 ####[facility] [address] [place], [address] RDW SD 43.0 fl Normal 35.1-43.9 [facility] Comment on above: Performed By: #### L 500.2500, L100.0100 ####[facility] [address] [place], [address] WBC (Bld) [#/Vol] 17.6 10*3/uL High 4.4-11.0 [facility] Comment on above: Performed By: #### L 500.2500, L100.0100 ####[facility] [address] [place], [address] Abdomen/Pelvis W IV Cont ONL Yon 11-25-2024 Abdomen/Pelvis W IV Cont ONLY Normal [facility] Absolute lymphocyte countOrd ered By: Drew Hinson on 11-25-2024 Lymphocytes Auto (Unsp spec) [#/Vol] 3.09 10*3/uL 0.83-4.51 [facility] Absolute neutrophil countOrd ered By: Drew Hinson on 11-25-2024 Neutrophils (Bld) [#/Vol] 21.5 10*3/uL High 2.0-7.7 [facility] Acute Abdomen Inc Cheston Acute Abdomen Inc Chest Normal [facility] Amorphous sediment detection in urine sediment by light microscopyOrdered By: Drew Hinson on 11-25-2024 Amorphous sediment LM Ql (Urine sed) 2+ URATE [facility] Anion gap in Serum or Plasma Ordered By: Drew Hinson on 11-25-2024 Anion gap [Moles/Vol] 17 mmol/L High 5-15 [facility] Automated lymphocyte count a s percentage of total leukocytesOrdered By: Drew Hinson on 11-25-2024 Lymphocytes/100 WBC Auto (Unsp spec) 11.4 % Low 19-41 [facility] BUN/creatinine ratioOrdered By: Drew Hinson on 11-25-2024 Urea nitrogen/Creatinine [Mass ratio] 15.9 mg/mg 10- [facility] Basic Metabolic Profile (BMP )on 11-25-2024 BUN/CRE 15.9 RATIO Normal - [facility] Comment on above: Performed By: #### L 700.6800, L500.2500, L100.0100 ####[facility] [address] [place], [address] Calcium [Mass/Vol] 9.6 mg/dL Normal 7.6-11.0 [facility] Comment on above: Performed By: #### L 700.6800, L500.2500, L100.0100 ####[facility] [address] [place], [address] Chloride [Moles/Vol] 97 mmol/L Low 98-108 [facility] Comment on above: Performed By: #### L 700.6800, L500.2500, L100.0100 ####[facility] [address] [place], [address] CO2 [Moles/Vol] 21.3 mmol/L Normal 21.0-32.0 [facility] Comment on above: Performed By: #### L 700.6800, L500.2500, L100.0100 ####[facility] [address] [place], [address] Creatinine [Mass/Vol] 1.20 mg/dL Normal 0.70-1.20 [facility] Comment on above: Performed By: #### L 700.6800, L500.2500, L100.0100 ####[facility] [address] [place], [address] ECRCL 86.69 ml/min Normal 50-250 [facility] Comment on above: Performed By: #### L 700.6800, L500.2500, L100.0100 ####[facility] [address] [place], [address] GAP 17 High 5-15 [facility] Comment on above: Performed By: #### L 700.6800, L500.2500, L100.0100 ####[facility] [address] [place], [address] GFR/1.73 sq M.predicted among non-blacks MDRD (S/P/Bld) [Vol rate/Area] 62 mL/min/{1.73_m2} Normal >60 [facility] Comment on above: Result Comment: mL/m in/1.73m2 CKD-EPI Creatinine Equation (2020) Performed By: #### L 700.6800, L500.2500, L100.0100 ####[facility] [address] [place], [address] Glucose [Mass/Vol] 203 mg/dL High 70-99 [facility] Comment on above: Performed By: #### L 700.6800, L500.2500, L100.0100 ####[facility] [address] [place], [address] Potassium [Moles/Vol] 4.0 mmol/L Normal 3.3-5.1 [facility] Comment on above: Performed By: #### L 700.6800, L500.2500, L100.0100 ####[facility] [address] [place], [address] Sodium [Moles/Vol] 135 mmol/L Normal 133-145 [facility] Comment on above: Performed By: #### L 700.6800, L500.2500, L100.0100 ####[facility] [address] [place], [address] Urea nitrogen [Mass/Vol] 19 mg/dL Normal 4-19 [facility] Comment on above: Performed By: #### L 700.6800, L500.2500, L100.0100 ####[facility] [address] [place], [address] Basophil percentageOrdered B y: Drew Hinson on 11-25-2024 Basophils/100 WBC (Bld) 0.3 % 0-1 [facility] Bedside Glucoseon 11-25-2024 FINGERSTICK GLU 139 mg/dL High 74-106 [facility] Comment on above: Result Comment: BULL [place] OF PATIENT CARE PER NURSING PROTOCOL Performed By: #### L 501.080 ####[facility] [address] [place], [address] Bilirubin Test strip Ql (U)O rdered By: Drew Hinson on 11-25-2024 Bilirubin Ql (U) 1 mg/dL High Negative [facility] Comment on above: COLOR OF URINE MAY A FFECT DIPSTICK RESULTS. Blood cultureOrdered By: Dwight Hinson on 11-25-2024 Bacteria identified Cx Nom (Bld) No growth in 5 days. [facility] Bacteria identified Cx Nom (Bld) No growth in 5 days. [facility] CBC W/Diff, Automatedon 11-09 PLT EST A Normal ADEQ [facility] Comment on above: Performed By: #### L 700.6800, L500.2500, L100.0100 ####[facility] [address], [address] Carbon dioxide, total [Moles /volume] in Central venous bloodOrdered By: Drew Hinson on 11-25-2024 CO2 [Moles/Vol] 21.3 mmol/L 21.0-32.0 [facility] Chloride assayOrdered By: Steven Hinson on 11-25-2024 Chloride [Moles/Vol] 97 mmol/L Low 98-108 [facility] Consultation - Surgicalon Consultation - Surgical Normal [facility] Emergency Department Summary on 11-25-2024 Emergency Department Summary Normal [facility] Eosinophil percentageOrdered By: Drew Hinson on 11-25-2024 Eosinophils/100 WBC (Bld) 0.1 % 0-5 [facility] Erythrocyte distribution wid th ratioOrdered By: Drew Hinson on 11-25-2024 Erythrocyte distribution width (RBC) [Ratio] 14.2 % 11.6-14.6 [facility] Erythrocyte distribution wid th standard deviationOrdered By: Drew Hinson on 11-25-2024 Erythrocyte distribution width (RBC) [Ratio] 41.1 fl 35.1-43.9 [facility] Glomerular filtration rate ( GFR) estimation/1.73 sq m using serum, plasma, or whole bOrdered By: Drew Hinson on 11-25-2024 GFR/1.73 sq M.predicted among non-blacks MDRD (S/P/Bld) [Vol rate/Area] 62 mL/min/{1.73_m2} >60 [facility] Comment on above: mL/min/1.73m2 CKD-EP I Creatinine Equation (2020) H AND P Exam - Hospitaliston 11-25-2024 H&P Exam - Hospitalist Normal [facility] Hematocrit Auto (Bld) [Volum e fraction]Ordered By: Drew Hinson on 11-25-2024 Hematocrit (Bld) [Volume fraction] 42.3 % 37-47 [facility] Hemoglobin measurementOrdere d By: Drew Hinson on 11-25-2024 Hemoglobin (Bld) [Mass/Vol] 14.1 g/dL 12.0-15.0 [facility] Hyaline casts LM.LPF (Urine sed) [#/Area]Ordered By: Drew Hinson on 11-25-2024 Hyaline casts (Urine sed) [#/Area] 0 /[LPF] 0-5 [facility] Immature granulocytes/100 WB C Auto (Bld)Ordered By: Drew Hinson on 11-25-2024 Immature granulocytes/100 WBC (Bld) 0.700 % 0.0-0.9 [facility] Comment on above: IG% - Immature Granu locytes (promyelocytes, myelocytes and metamyelocytes) > 1% indicates that a LEFT SHIFT is Present. Ketones Test strip Ql (U)Ord ered By: Drew Hinson on 11-25-2024 Ketones Ql (U) 5 mg/dl High Negative [facility] Lactic Acidon 11-25-2024 Lactate [Moles/Vol] 1.5 mmol/L Normal 0.0-2.0 [facility] Comment on above: Order Comment: Y Performed By: #### M 200.1000, L503.6005 ####[facility] [address] [place], [address] Lactic acid measurementOrder ed By: Drew Hinson on 11-25-2024 Lactate [Moles/Vol] 1.5 mmol/L 0.0-2.0 [facility] MCV (mean corpuscular volume ) determinationOrdered By: Drew Hinson on 11-25-2024 MCV (RBC) [Entitic vol] 81.2 fL 81-99 [facility] Mean corpuscular hemoglobin (MCH) determinationOrdered By: Drew Hinson on 11-25-2024 MCH (RBC) [Entitic mass] 27.1 pg 27.0-32.0 [facility] Mean corpuscular hemoglobin concentration (MCHC) determinationOrdered By: Drew Hinson on 11-25-2024 MCHC (RBC) [Mass/Vol] 33.3 g/dL 32-36 [facility] Mean platelet volume determi nationOrdered By: Drew Hinson on 11-25-2024 Platelet mean volume (Bld) [Entitic vol] 9.4 fL 6.2-12.0 [facility] Microscopic analysis of urin e for red blood cells (RBC)Ordered By: Drew Hinson on 11-25-2024 Microscopic analysis of urine for red blood cells (RBC) 0-5 SEEN /hpf 0-5 [facility] Monocyte percentageOrdered B y: Drew Hinson on 11-25-2024 Monocytes/100 WBC (Bld) 8.0 % 0-10 [facility] Mucus LM Ql (Urine sed)Order ed By: Drew Hinson on 11-25-2024 Mucus Ql (Urine sed) 0 SEEN /hpf [facility] Neutrophil percentageOrdered By: Drew Hinson on 11-25-2024 Neutrophils/100 WBC (Bld) 79.5 % High 47-70 [facility] Nitrite Test strip Ql (U)Ord ered By: Drew Hinson on 11-25-2024 Nitrite Ql (U) Negative Negative [facility] Nucleated red blood cell per centageOrdered By: Drew Hinson on 11-25-2024 Nucleated RBC/100 WBC (Bld) [Ratio] 0 % 0-5 [facility] Platelet countOrdered By: Steven Hinson on 11-25-2024 Platelets (Bld) [#/Vol] 400 10*3/uL 150-450 [facility] Platelet estimateOrdered By: Drew Hinson on 11-25-2024 Platelets LM Ql (Bld) A ADEQ [facility] Potassium measurement (mass/ volume)Ordered By: Drew Hinson on 11-25-2024 Potassium (Unsp spec) [Mass/Vol] 4.0 mmol/L 3.3-5.1 [facility] ,Serum,hCG Quali.on 11-25-2024 HCG, SERUM QUAL Negative Normal [facility] Comment on above: Performed By: #### L 700.6790, L500.2500, L100.0100 ####[facility] [address] [place], [address] Protein Test strip Ql (U)Ord ered By: Drew Hinson on 11-25-2024 Protein Ql (U) 30 mg/dl High Negative [facility] RBC Auto (Bld) [#/Vol]Ordere d By: Drew Hinson on 11-25-2024 RBC (Bld) [#/Vol] 5.21 10*6/uL 4.2-5.4 [facility] Serum beta-hCG test, qualita tiveOrdered By: Drew Hinson on 11-25-2024 Beta HCG ( test) Ql Negative [facility] Serum creatinine measurement (mass/volume)Ordered By: Drew Hinson on 11-25-2024 Creatinine [Mass/Vol] 1.20 mg/dL 0.70-1.20 [facility] Serum glucose measurement (m ass/volume)Ordered By: Drew Hinson on 11-25-2024 Glucose [Mass/Vol] 203 mg/dL High 70-99 [facility] Serum or plasma calcium hussein urement (mass/volume)Ordered By: Drew Hinson on 11-25-2024 Calcium [Mass/Vol] 9.6 mg/dL 7.6-11.0 [facility] Serum or plasma urea nitroge n measurement (mass/volume)Ordered By: Drew Hinson on 11-25-2024 Urea nitrogen [Mass/Vol] 19 mg/dL 4-19 [facility] Sodium levelOrdered By: Drew Hinson on 11-25-2024 Sodium [Moles/Vol] 135 mmol/L 133-145 [facility] Squamous epithelial cells de tection in urine sediment by light microscopyOrdered By: Drew Hinson on 11-25-2024 Epithelial cells.squamous LM Ql (Urine sed) 0-5 SEEN /hpf 5-10 [facility] Urinalysis, Completeon 11-25 CAST,HYALINE 0-5 SEEN Normal 0-5 [facility] Comment on above: Order Comment: CLEAN CATCH Performed By: #### L 400.0001 ####[facility] [address] [place], [address] AMORPHOUS 2+ URATE Normal [facility] Comment on above: Order Comment: CLEAN CATCH Performed By: #### L 400.0001 ####[facility] [address] [facility] [address] EPI,SQUAMOUS 0-5 SEEN Normal 5-10 [facility] Comment on above: Order Comment: CLEAN CATCH Performed By: #### L 400.0001 ####[facility] [address] [facility] [address] RBC 0-5 SEEN Normal 0-5 [facility] Comment on above: Order Comment: CLEAN CATCH Performed By: #### L 400.0001 ####[facility] [address] [place], [address] WBC 0-5 SEEN Normal 0-5 [facility] Comment on above: Order Comment: CLEAN CATCH Performed By: #### L 400.0001 ####[facility] [address] [place], [address] BACTERIA 0 SEEN Normal None Seen [facility] Comment on above: Order Comment: CLEAN CATCH Performed By: #### L 400.0001 ####[facility] [address] [facility] [address] Mucus Ql (Urine sed) 0 SEEN Normal [facility] Comment on above: Order Comment: CLEAN CATCH Performed By: #### L 400.0001 ####[facility] [address] [place], [address] Urine clarityOrdered By: Dwight Hinson on 11-25-2024 Clarity (U) Cloudy Clear [facility] Urine color determinationOrd ered By: Drew Hinson on 11-25-2024 Color (U) Yellow Yellow [facility] Urine glucose detectionOrder ed By: Drew Hinson on 11-25-2024 Glucose Ql (U) Normal mg/dl Normal [facility] Urine leukocyte esterase det ection by dipstickOrdered By: Drew Hinson on 11-25-2024 Leukocyte esterase Test strip Ql (U) Negative Negative [facility] Urine pHOrdered By: Drew castellanos on 11-25-2024 pH (U) 6.0 [pH] 5.0 - 8.0 [facility] Urine sediment bacteria coun t by microscopy (number/high power field)Ordered By: Drew Hinson on 11-25-2024 Bacteria LM.HPF (Urine sed) [#/Area] 0 /[HPF] None Seen [facility] Urine specific gravity measu rementOrdered By: Drew Hinson on 11-25-2024 Specific gravity (U) [Rel density] 1.025 1.002-1.030 [facility] Urine urobilinogen measureme ntOrdered By: Drew Hinson on 11-25-2024 Urobilinogen Ql (U) 1 mg/dl High Normal [facility] White blood cell (WBC) count Ordered By: Drew Hinson on 11-25-2024 WBC (Bld) [#/Vol] 27.0 10*3/uL High 4.4-11.0 [facility] White blood cell countOrdere d By: Drew Hinson on 11-25-2024 White blood cell count 0-5 SEEN /hpf 0-5 [facility] Arterial study reportOrdered By: Tony Dwyer on 10-25-2024 Noninvasive arteriosclerosis study report [facility] [address] [place] [address] Lower Ext Art Exam w/o Exercis 10/25/24 0847 MR#: [id number] Acct: [id number] Name: GHISLAINE GIVENS Rep #:[id number] : 1990 34 From: Tony Dwyer MD [...] _ Tony Dwyer MD CC: YESY Forrest; [facility] [employer] [facility] Amy Solorzano ~ Date Dictated: 10/25/24 0847 Date Transcribed: 10/25/242211 [place] Worker Helper: Signed [facility] Other Phone: Lower Ext Art Exam w/o Exerc rudy 10-25-2024 Lower Ext Art Exam w/o Exercis Normal [facility] Venous Duplex US - Tayo Extre mon 10-25-2024 Venous Duplex US - Tayo Extrem Normal [facility] Venous duplex ultrasound rep ortOrdered By: Tony Dwyer on 10-25-2024 US Vein [facility] [address] [place] [address] Venous Duplex US - Tayo Extrem 10/25/24 0806 MR#: [id number] Acct: [id number] Name: GHISLAINE GIVENS Rep #:[id number] : 1990 34 From: Tony Dwyer MD [...] competent and measures 0.21 x 0.23 INCOMPETENT group cio noted 8 cm above medial cm. maleolus. [...] right proximal calf is incompetent. 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 Ordering Physician: Abdirizak Forrest Referring Physician: Amy Solorzano Performed By: Saima De La Torre RVT 10/25/242200 Date _ Tony Dwyer MD CC: YESY Forrest; [facility] [employer] Amy Solorzano ~ Date Dictated: 10/25/24805 Date Transcribed: 10/25/242200 [place] Worker Helper: Signed [facility] Other Phone: Absolute lymphocyte countOrd ered By: [facility] Amy Rashad on 10-17-2024 Lymphocytes Auto (Unsp spec) [#/Vol] 3.16 10*3/uL 0.83-4.51 [facility] Absolute neutrophil countOrd ered By: [facility] Amykeiko Solorzano on 10-17-2024 Neutrophils (Bld) [#/Vol] 6.6 10*3/uL 2.0-7.7 [facility] Albumin DL <= 20 mg/L (U) [M ass/Vol]Ordered By: [facility] Amy Solorzano on 10-17-2024 Urine Random Microalbumin < 12.0 mg/L NO RANGE EST. [facility] Anion gap in Serum or Plasma Or[facility]: [facility] on 10-17-2024 Anion gap [Moles/Vol] 14 mmol/L 5-15 [facility] Automated lymphocyte count a s percentage of total leukocytesOrdered By: [facility] Amykeiko Solorzano on 10-17-2024 Lymphocytes/100 WBC Auto (Unsp spec) 29.7 % 19-41 [facility] BUN/creatinine ratioOrdered By: [facility] Rashad on 10-17-2024 Urea nitrogen/Creatinine [Mass ratio] 14.4 mg/mg 10-20 [facility] Basophil percentageOrdered B y: [facility] Amykeiko Solorzano on 10-17-2024 Basophils/100 WBC (Bld) 0.4 % 0-1 [facility] Bilirubin, totalOrdered By: [facility] Amy Solorzano on 10-17-2024 Bilirubin [Mass/Vol] 0.21 mg/dL 0.00-1.30 [facility] CBC W/Diff, Automatedon Absolute Lymph 3.16 X10 3/uL Normal 0.83-4.51 [facility] Comment on above: Performed By: #### L 100.0100, L506.1001, L501.9520, L500.4100, L500.4050, L502.0500 ####[facility] [address] [place], [address] Absolute Neut 6.6 X10 3/uL Normal 2.0-7.7 [facility] Comment on above: Performed By: #### L 100.0100, L506.1001, L501.9520, L500.4100, L500.4050, L502.0500 ####[facility] [address] [place], [address] Basophils/100 WBC (Bld) 0.4 % Normal 0-1 [facility] Comment on above: Performed By: #### L 100.0100, L506.1001, L501.9520, L500.4100, L500.4050, L502.0500 ####[facility] [address] [place], [address] Eosinophils/100 WBC (Bld) 0.7 % Normal 0-5 [facility] Comment on above: Performed By: #### L 100.0100, L506.1001, L501.9520, L500.4100, L500.4050, L502.0500 ####[facility] [address] [place], [address] Erythrocyte distribution width (RBC) [Ratio] 14.1 % Normal 11.6-14.6 [facility] Comment on above: Performed By: #### L 100.0100, L506.1001, L501.9520, L500.4100, L500.4050, L502.0500 ####[facility] [address] [place], [address] Hematocrit (Bld) [Volume fraction] 39.5 % Normal 37-47 [facility] Comment on above: Performed By: #### L 100.0100, L506.1001, L501.9520, L500.4100, L500.4050, L502.0500 ####[facility] [address] [place], [address] Hemoglobin (Bld) [Mass/Vol] 12.8 g/dL Normal 12.0-15.0 [facility] Comment on above: Performed By: #### L 100.0100, L506.1001, L501.9520, L500.4100, L500.4050, L502.0500 ####[facility] [address] [place], [address] IG% 1.000 High 0.0-0.9 [facility] Comment on above: Result Comment: IG% - Immature Granulocytes (promyelocytes, myelocytes andmetamyelocytes) > 1% indicates that a LEFT SHIFT is Present. Performed By: #### L 100.0100, L506.1001, L501.9520, L500.4100, L500.4050, L502.0500 ####[facility] [address] [place], [address] Lymphocytes/100 WBC (Bld) 29.7 % Normal 19-41 [facility] Comment on above: Performed By: #### L 100.0100, L506.1001, L501.9520, L500.4100, L500.4050, L502.0500 ####[facility] [address] [place], [address] MCH (RBC) [Entitic mass] 26.6 pg Low 27.0-32.0 [facility] Comment on above: Performed By: #### L 100.0100, L506.1001, L501.9520, L500.4100, L500.4050, L502.0500 ####[facility] [address] [place], [address] MCHC (RBC) [Mass/Vol] 32.4 g/dL Normal 32-36 [facility] Comment on above: Performed By: #### L 100.0100, L506.1001, L501.9520, L500.4100, L500.4050, L502.0500 ####[facility] [address] [place], [address] MCV (RBC) [Entitic vol] 82.1 fL Normal 81-99 [facility] Comment on above: Performed By: #### L 100.0100, L506.1001, L501.9520, L500.4100, L500.4050, L502.0500 ####[facility] [address] [place], [address] Monocytes/100 WBC (Bld) 6.0 % Normal 0-10 [facility] Comment on above: Performed By: #### L 100.0100, L506.1001, L501.9520, L500.4100, L500.4050, L502.0500 ####[facility] [address] [place], [address] Neutrophils/100 WBC (Bld) 62.2 % Normal 47-70 [facility] Comment on above: Performed By: #### L 100.0100, L506.1001, L501.9520, L500.4100, L500.4050, L502.0500 ####[facility] [address] [place], [address] Nucleated RBC (Bld) [#/Vol] 0 10*3/uL Normal 0-5 [facility] Comment on above: Performed By: #### L 100.0100, L506.1001, L501.9520, L500.4100, L500.4050, L502.0500 ####[facility] [address] [place], [address] Platelet mean volume (Bld) [Entitic vol] 9.7 fL Normal 6.2-12.0 [facility] Comment on above: Performed By: #### L 100.0100, L506.1001, L501.9520, L500.4100, L500.4050, L502.0500 ####[facility] [address] [place], [address] Platelets (Bld) [#/Vol] 332 10*3/uL Normal 150-450 [facility] Comment on above: Performed By: #### L 100.0100, L506.1001, L501.9520, L500.4100, L500.4050, L502.0500 ####[facility] [address] [place], [address] RBC (Bld) [#/Vol] 4.81 10*6/uL Normal 4.2-5.4 [facility] Comment on above: Performed By: #### L 100.0100, L506.1001, L501.9520, L500.4100, L500.4050, L502.0500 ####[facility] [address] [place], [address] RDW SD 41.9 fl Normal 35.1-43.9 [facility] Comment on above: Performed By: #### L 100.0100, L506.1001, L501.9520, L500.4100, L500.4050, L502.0500 ####[facility] [address] [place], [address] WBC (Bld) [#/Vol] 10.6 10*3/uL Normal 4.4-11.0 [facility] Comment on above: Performed By: #### L 100.0100, L506.1001, L501.9520, L500.4100, L500.4050, L502.0500 ####[facility] [address] [place], [address] Calculated very low density lipoprotein (VLDL) cholesterol measurementOrdered By: [facility] Amy Solorzano on 10-17-2024 Calculated very low density lipoprotein (VLDL) cholesterol measurement 57 mg/dL High 5-40 [facility] VLDL Cholesterol 57 mg/dL High 5-40 [facility] Carbon dioxide, total [Moles /volume] in Central venous bloodOrdered By: [facility] Amy Solorzano on 10-17-2024 CO2 [Moles/Vol] 21.8 mmol/L 21.0-32.0 [facility] Chloride assayOrdered By: [facility] Amy Solorzano on 10-17-2024 Chloride [Moles/Vol] 99 mmol/L 98-108 [facility] Comprehensive Metabolic Prof ilon 10-17-2024 Albumin [Mass/Vol] 3.7 g/dL Normal 3.5-5.0 [facility] Comment on above: Performed By: #### L 100.0100, L506.1001, L501.9520, L500.4100, L500.4050, L502.0500 ####[facility] [address] [place], [address] Albumin/Globulin [Mass ratio] 0.9 {ratio} Normal 0.9-2.4 [facility] Comment on above: Performed By: #### L 100.0100, L506.1001, L501.9520, L500.4100, L500.4050, L502.0500 ####[facility] [address] [place], [address] ALK PHOS 93 U/L Normal 35-104 [facility] Comment on above: Performed By: #### L 100.0100, L506.1001, L501.9520, L500.4100, L500.4050, L502.0500 ####[facility] [address] [place], [address] ALT [Catalytic activity/Vol] 12 U/L Normal <=34 [facility] Comment on above: Performed By: #### L 100.0100, L506.1001, L501.9520, L500.4100, L500.4050, L502.0500 ####[facility] [address] [place], [address] AST [Catalytic activity/Vol] 18 U/L Normal <=31 [facility] Comment on above: Performed By: #### L 100.0100, L506.1001, L501.9520, L500.4100, L500.4050, L502.0500 ####[facility] [address] [place], [address] Bilirubin [Mass/Vol] 0.21 mg/dL Normal 0.00-1.30 [facility] Comment on above: Performed By: #### L 100.0100, L506.1001, L501.9520, L500.4100, L500.4050, L502.0500 ####[facility] [address] [place], [address] BUN/CRE 14.4 RATIO Normal 10-20 [facility] Comment on above: Performed By: #### L 100.0100, L506.1001, L501.9520, L500.4100, L500.4050, L502.0500 ####[facility] [address] [place], [address] Calcium [Mass/Vol] 9.2 mg/dL Normal 7.6-11.0 [facility] Comment on above: Performed By: #### L 100.0100, L506.1001, L501.9520, L500.4100, L500.4050, L502.0500 ####[facility] [address] [place], [address] Chloride [Moles/Vol] 99 mmol/L Normal 98-108 [facility] Comment on above: Performed By: #### L 100.0100, L506.1001, L501.9520, L500.4100, L500.4050, L502.0500 ####[facility] [address] [place], [address] CO2 [Moles/Vol] 21.8 mmol/L Normal 21.0-32.0 [facility] Comment on above: Performed By: #### L 100.0100, L506.1001, L501.9520, L500.4100, L500.4050, L502.0500 ####[facility] [address] [place], [place], [phone](328) Creatinine [Mass/Vol] 0.84 mg/dL Normal 0.70-1.20 [facility] Comment on above: Performed By: #### L 100.0100, L506.1001, L501.9520, L500.4100, L500.4050, L502.0500 ####[facility] [address] [place], [place], [phone](287) GAP 14 Normal 5-15 [facility] Comment on above: Performed By: #### L 100.0100, L506.1001, L501.9520, L500.4100, L500.4050, L502.0500 ####[facility] [address] [place], [address](364) GFR/1.73 sq M.predicted among non-blacks MDRD (S/P/Bld) [Vol rate/Area] 95 mL/min/{1.73_m2} Normal >60 [facility] Comment on above: Result Comment: mL/m in/1.73m2 CKD-EPI Creatinine Equation (2020) Performed By: #### L 100.0100, L506.1001, L501.9520, L500.4100, L500.4050, L502.0500 ####[facility] [address] [place], [place], [phone] Globulin (S) [Mass/Vol] 3.9 g/dL Normal 2.2-4.2 [facility] Comment on above: Performed By: #### L 100.0100, L506.1001, L501.9520, L500.4100, L500.4050, L502.0500 ####[facility] [address] [place], [address] Glucose [Mass/Vol] 233 mg/dL High 70-99 [facility] Comment on above: Performed By: #### L 100.0100, L506.1001, L501.9520, L500.4100, L500.4050, L502.0500 ####[facility] [address] [place], [address] Potassium [Moles/Vol] 4.6 mmol/L Normal 3.3-5.1 [facility] Comment on above: Performed By: #### L 100.0100, L506.1001, L501.9520, L500.4100, L500.4050, L502.0500 ####[facility] [address] [place], [address] Sodium [Moles/Vol] 135 mmol/L Normal 133-145 [facility] Comment on above: Performed By: #### L 100.0100, L506.1001, L501.9520, L500.4100, L500.4050, L502.0500 ####[facility] [address] [place], [address] T PROT 7.5 g/dL Normal 5.9-8.4 [facility] Comment on above: Performed By: #### L 100.0100, L506.1001, L501.9520, L500.4100, L500.4050, L502.0500 ####[facility] [address] [place], [address] Urea nitrogen [Mass/Vol] 12 mg/dL Normal 4-19 [facility] Comment on above: Performed By: #### L 100.0100, L506.1001, L501.9520, L500.4100, L500.4050, L502.0500 ####[facility] [address] [place], [address] Eosinophil percentageOrdered By: [facility] Amy Solorzano on 10-17-2024 Eosinophils/100 WBC (Bld) 0.7 % 0-5 [facility] Erythrocyte distribution wid th (RBC) [Ratio]Ordered By: [facility] Amy Solorzano on 10-17-2024 Erythrocyte distribution width (RBC) [Entitic vol] 41.9 fL 35.1-43.9 [facility] Erythrocyte distribution wid th ratioOrdered By: [facility] Amy Solorzano on 10-17-2024 Erythrocyte distribution width (RBC) [Ratio] 14.1 % 11.6-14.6 [facility] Erythrocyte distribution wid th standard deviationOrdered By: [facility] Amy Solorzano on 10-17-2024 Erythrocyte distribution width (RBC) [Ratio] 41.9 fl 35.1-43.9 [facility] GFR/1.73 sq M.predicted taryn g non-blacks MDRD (S/P/Bld) [Vol rate/Area]Ordered By: [facility] Amy Solorzano on 10-17-2024 Estimated GFR (MDRD) Non-Af Amer 95 >60 [facility] Comment on above: mL/min/1.73m2 CKD-EP I Creatinine Equation (2020) Glomerular filtration rate ( GFR) estimation/1.73 sq m using serum, plasma, or whole bOrdered By: [facility] Amy Solorzano on 10-17-2024 GFR/1.73 sq M.predicted among non-blacks MDRD (S/P/Bld) [Vol rate/Area] 95 mL/min/{1.73_m2} >60 [facility] Comment on above: mL/min/1.73m2 CKD-EP I Creatinine Equation (2020) Hematocrit Auto (Bld) [Volum e fraction]Ordered By: [facility] Amy Solorzano on 10-17-2024 Hematocrit (Bld) [Volume fraction] 39.5 % 37-47 [facility] Hemoglobin measurementOrdere d By: [facility] Amy Solorzano on 10-17-2024 Hemoglobin (Bld) [Mass/Vol] 12.8 g/dL 12.0-15.0 [facility] Immature granulocytes/100 WB C Auto (Bld)Ordered By: [facility] Amy Rashad on 10-17-2024 Immature granulocytes/100 WBC (Bld) 1.000 % High 0.0-0.9 [facility] Comment on above: IG% - Immature Granu locytes (promyelocytes, myelocytes and metamyelocytes) > 1% indicates that a LEFT SHIFT is Present. LDL calc ser/plasOrdered By: [facility] Amy Rashad on 10-17-2024 Cholesterol in LDL [Mass/Vol] 70 mg/dL [facility] Comment on above: Febeuuboib=424-857 m g/dL & Higher Ahia=694 mg/dL or greater LDL Cholesterol, Calculated 70 mg/dL [facility] Comment on above: Aiddvwzpnt=678-006 m g/dL & Higher Xsxc=455 mg/dL or greater Laboratory - Chemistry and C hemistry - challengeOrdered By: [facility] Amy Rashad on 10-17-2024 AST [Catalytic activity/Vol] 18 U/L <32 [facility] Lipid Profileon 10-17-2024 CHOL:HDL 4.44 Normal [facility] Comment on above: Performed By: #### L 100.0100, L506.1001, L501.9520, L500.4100, L500.4050, L502.0500 ####[facility] [address] [place], [address] Cholesterol [Mass/Vol] 164 mg/dL Normal <=200 [facility] Comment on above: Result Comment: Chol esterol level, Desirable <200 mg/dLBorderline high cholesterol 200-239 mg/dLHigh cholesterol >=240 mg/dLRecommendations of the NCEP Adult Treatment Panel for thefollowing risk-cutoff thresholds for the [place] Americanpulation. Performed By: #### L 100.0100, L506.1001, L501.9520, L500.4100, L500.4050, L502.0500 ####[facility] [address] [place], [address] Cholesterol in HDL [Mass/Vol] 37 mg/dL Low [facility] Comment on above: Result Comment: Lupe onal Cholesterol Education Program (NCEP) guidelines:<40 mg/dL: Low HDL-cholesterol (major risk factor for CHD)>= 60 mg/dL: High HDL-cholesterol (negative risk factor forCHD)HDL-cholesterol is affected by a number of factors, e.g.smoking, exercise, hormones, sex and age. Performed By: #### L 100.0100, L506.1001, L501.9520, L500.4100, L500.4050, L502.0500 ####[facility] [address] [place], [address] Cholesterol in LDL [Mass/Vol] 70 mg/dL Normal [facility] Comment on above: Result Comment: Bord ggjcxz=949-548 mg/dL Higher Nxil=184 mg/dL or greater Performed By: #### L 100.0100, L506.1001, L501.9520, L500.4100, L500.4050, L502.0500 ####[facility] [address] [place], [address] Cholesterol in VLDL [Mass/Vol] 57 mg/dL High 5-40 [facility] Comment on above: Performed By: #### L 100.0100, L506.1001, L501.9520, L500.4100, L500.4050, L502.0500 ####[facility] [address] [place], [address] Triglyceride [Mass/Vol] 287 mg/dL High [facility] Comment on above: Result Comment: The drugs N-Acetylcysteine and Metamizole may falselydepress this assay.Normal range: <150 mg/dLBorderline High: 150-199 mg/dLHigh: 200-499 mg/dLVery High: >500 mg/dL Performed By: #### L 100.0100, L506.1001, L501.9520, L500.4100, L500.4050, L502.0500 ####[facility] [address] [place], [place], [id number] Lymphocytes Auto (Unsp spec) [#/Vol]Ordered By: [facility] Amy Solorzano on 10-17-2024 Lymphocytes (Bld) [#/Vol] 3.16 10*3/uL 0.83-4.51 [facility] Lymphocytes/100 WBC Auto (Un sp spec)Ordered By: [facility] Amy Rashad on 10-17-2024 Lymphocytes/100 WBC (Bld) 29.7 % 19-41 [facility] MCV (mean corpuscular volume ) determinationOr[facility]: [facility] 10-17-2024 MCV (RBC) [Entitic vol] 82.1 fL 81-99 [facility] Mean corpuscular hemoglobin (MCH) determinationOrdered By: [facility] 10-17-2024 MCH (RBC) [Entitic mass] 26.6 pg Low 27.0-32.0 [facility] Mean corpuscular hemoglobin concentration (MCHC) determinationOrdered By: [facility] HealthAmy Rashad on 10-17-2024 MCHC (RBC) [Mass/Vol] 32.4 g/dL 32-36 [facility] Mean platelet volume determi nationOrdered By: [facility] HealthAmy Rashad on 10-17-2024 Platelet mean volume (Bld) [Entitic vol] 9.7 fL 6.2-12.0 [facility] Microalbumin,Random Urineon 10-17-2024 MICROALBUMIN,UR < 12.0 Normal NO RANGE EST. [facility] Comment on above: Performed By: #### L 100.0100, L506.1001, L501.9520, L500.4100, L500.4050, L502.0500 ####[facility] [address] [facility] [address] [place], [place], [id number] Monocyte percentageOrdered B y: [facility] Amy Rashad on 10-17-2024 Monocytes/100 WBC (Bld) 6.0 % 0-10 [facility] Neutrophil percentageOrdered By: [facility] HealthAmykeiko Solorzano on 10-17-2024 Neutrophils/100 WBC (Bld) 62.2 % 47-70 [facility] No Panel InformationOrdered By: [facility] Amy Solorzano on 10-17-2024 18 U/L <32 [facility] Nucleated red blood cell per centageOrdered By: [facility] Amy Solorzano on 10-17-2024 Nucleated RBC/100 WBC (Bld) [Ratio] 0 % 0-5 [facility] Platelet countOrdered By: [facility] Amy Solorzano on 10-17-2024 Platelets (Bld) [#/Vol] 332 10*3/uL 150-450 [facility] Potassium (Unsp spec) [Mass/ Vol]Ordered By: [facility] Amy Solorzano on 10-17-2024 Potassium [Moles/Vol] 4.6 mmol/L 3.3-5.1 [facility] Potassium measurement (mass/ volume)Ordered By: [facility] Amy Solorzano on 10-17-2024 Potassium (Unsp spec) [Mass/Vol] 4.6 mmol/L 3.3-5.1 [facility] RBC Auto (Bld) [#/Vol]Ordere d By: [facility] Amy Solorzano on 10-17-2024 RBC (Bld) [#/Vol] 4.81 10*6/uL 4.2-5.4 [facility] Screening total cholesterol/ high density lipoprotein (HDL) cholesterol ratioOrdered By: [facility] Amy Solorzano on 10-17-2024 Cholesterol.total/Breonna sterol in HDL [Mass ratio] 4.44 {ratio} [facility] Serum creatinine measurement (mass/volume)Ordered By: [facility] Amy Solorzano on 10-17-2024 Creatinine [Mass/Vol] 0.84 mg/dL 0.70-1.20 [facility] Serum globulin measurementOr dered By: [facility] Amy Solorzano on 10-17-2024 Globulin (S) [Mass/Vol] 3.9 g/dL 2.2-4.2 [facility] Serum glucose measurement (m ass/volume)Ordered By: [facility] Amy Solorzano on 10-17-2024 Glucose [Mass/Vol] 233 mg/dL High 70-99 [facility] Serum or plasma alanine jordan otransferase (ALT) measurementOrdered By: [facility] Amy Solorzano on 10-17-2024 ALT [Catalytic activity/Vol] 12 U/L <35 [facility] Serum or plasma albumin hussein urement (mass/volume)Ordered By: [facility] Amy Rashad on 10-17-2024 Albumin [Mass/Vol] 3.7 g/dL 3.5-5.0 [facility] Serum or plasma albumin/glob ulin mass ratioOrdered By: [facility] HealthAmy Rashad on 10-17-2024 Albumin/Globulin [Mass ratio] 0.9 {ratio} 0.9-2.4 [facility] Serum or plasma alkaline bradley sphatase measurementOrdered By: [facility] HealthAmy Rashad 10-17-2024 ALP [Catalytic activity/Vol] 93 U/L 35-104 [facility] Serum or plasma calcium hussein urement (mass/volume)Ordered By: [facility] Amy Rashad 10-17-2024 Calcium [Mass/Vol] 9.2 mg/dL 7.6-11.0 [facility] Serum or plasma cholesterol in HDL measurement (mass/volume)Ordered By: [facility] Amy Rashad 10-17-2024 Cholesterol in HDL [Mass/Vol] 37 mg/dL Low >40 [facility] Comment on above: National Cholesterol Education Program (NCEP) guidelines:<40 mg/dL: Low HDL-cholesterol (major risk factor for CHD)>= 60 mg/dL: High HDL-cholesterol (negative risk factor for CHD)HDL-cholesterol is affected by a number of factors, e.g. smoking, exercise, hormones, sex and age. Serum or plasma cholesterol measurement (mass/volume)Ordered By: [facility] Amy Rashad on 10-17-2024 Cholesterol [Mass/Vol] 164 mg/dL <201 [facility] Comment on above: Cholesterol level, D esirable <200 mg/dLBorderline high cholesterol 200-239 mg/dLHigh cholesterol >=240 mg/dLRecommendations of the NCEP Adult Treatment Panel for the following risk-cutoff thresholds for the [place] population. Serum or plasma urea nitroge n measurement (mass/volume)Ordered By: [facility] Amy Rashad 10-17-2024 Urea nitrogen [Mass/Vol] 12 mg/dL 4-19 [facility] Sodium levelOrdered By: [facility] Amy Solorzano on 10-17-2024 Sodium [Moles/Vol] 135 mmol/L 133-145 [facility] TSH DL <= 0.005 mIU/L QnOrde red By: [facility] Amy Solorzano on 10-17-2024 Thyroid Stimulating Hormone (TSH) 1.180 uIU/mL 0.300-4.200 [facility] TSH Qn 1.180 uIU/mL 0.300-4.200 [facility] Thyroid Stim Hormone (TSH)on 10-17-2024 TSH 1.180 uIU/mL Normal 0.300-4.200 [facility] Comment on above: Performed By: #### L 100.0100, L506.1001, L501.9520, L500.4100, L500.4050, L502.0500 ####[facility] [address] [place], [address] Total proteinOrdered By: [facility] Amy Solorzano on 10-17-2024 Protein [Mass/Vol] 7.5 g/dL 5.9-8.4 [facility] Triglycerides measurementOrd ered By: [facility] Amy Solorzano on 10-17-2024 Triglyceride [Mass/Vol] 287 mg/dL High <199 [facility] Comment on above: The drugs N-Acetylcy steine and Metamizole may falsely depress this assay. Normal range: <150 mg/dLBorderline High: 150-199 mg/dLHigh: 200-499 mg/dLVery High: >500 mg/dL Urine albumin measurement [facility] detection limit of 20 mg/L or less (mass/volume)Ordered By: [facility] Amy Solorzano on 10-17-2024 Albumin DL <= 20 mg/L (U) [Mass/Vol] < 12.0 mg/L NO RANGE EST. [facility] Vitamin D, 25-hydroxyOrdered By: [facility] Amy Solorzano on 10-17-2024 Vitamin D 25-Hydroxy 10.7 ng/mL Low 30-100 [facility] Comment on above: Vitamin D StatusDefi ciency: <20 ng/mL (50nmol/L)Insufficiency: 20-30 ng/mL (50-75 nmol/L)Sufficiency: 30-100 ng/mL (75-250 nmol/L)Toxicity: >100 ng/mL (>250 nmol/L) Vitamin D,25 Hydroxyon 10-17 Vitamin D 25-OH 10.7 ng/mL Low 30-100 [facility] Comment on above: Result Comment: Claudia min D StatusDeficiency: <20 ng/mL (50nmol/L)Insufficiency: 20-30 ng/mL (50-75 nmol/L)Sufficiency: 30-100 ng/mL (75-250 nmol/L)Toxicity: >100 ng/mL (>250 nmol/L) Performed By: #### L 100.0100, L506.1001, L501.9520, L500.4100, L500.4050, L502.0500 ####[facility] [address] [place], [address] White blood cell (WBC) count Ordered By: [facility] Amy Solorzano on 10-17-2024 WBC (Bld) [#/Vol] 10.6 10*3/uL 4.4-11.0 [facility] CNOVon 07-03-2024 CNOV Office Visit ([facility] ) GHISLAINE GIVENS ([id number]) 1990 F [facility] Date Time Provider Department 07/03/24 1:00 PM IRAIS [facility] During your visit today, we recorded [...] diabeti (more content not included)... Normal [facility] XR CHEST 2V FRONTAL/LATon XR CHEST [...] Low lung volumes. No acute radiographic abnormality. Barrow Worker Helper: OLGA Transcribe Date/Time: Jul 03 2024 1:07P Dictated by : THANIA ROSS DO This examination was interpreted and the report reviewed and electronically signed by: THANIA ROSS DO on Jul 03 2024 1:08PM EST [id number] Normal [facility] XR Chest PA and Lateralon IMPRESSION: Low lung volumes. No acute radiographic abnormality. [place] Worker Helper: JAYSHREEB Transcribe Date/Time: Jul 03 2024 1:07P Dictated by : HTANIA ROSS DO This examination was interpreted and [...] tissues: Unremarkable. DIVISION OF RADIOLOGY Provider, Susana [facility] - 07/03/2024 * * *Final Report* [...] Low lung volumes. No acute radiographic abnormality. [place] Worker Helper: PSCB Transcribe Date/Time: Jul 03 2024 1:07P Dictated by : THANIA ROSS DO This examination was interpreted and the report reviewed and electronically signed by: THANIA ROSS DO on Jul 03 2024 1:08PM EST [facility] Radiology Study observation (narrative) Melissa Medina XR Chest PA and LateralOrder ed By: [facility] Provider on 07-03-2024 [facility] CNOVon 06-26-2024 CNOV Office Visit ([facility] ) GHISLAINE GIVENS ([id number]) 1990 F [facility] Date Time Provider Department 06/26/24 10:30 AM FRANTZ AREVALO [facility] During your visit today, we recorded the following information about you: Temperature Pulse Respiration Blood pressure 97.4 degrees 117/minute 18/minute 122/78 Weight 115.7 kg Frantz Arevalo PA-C 06/26/2024 11:03 AM Signed This note was created using Trada. Subjective Ghislaine Givens is a 34 year [...] T (more content not included)... Normal [facility] CBC W/Diff, Automatedon 10- Absolute Lymph 4.36 X10 3/uL Normal 0.83-4.51 [facility] Comment on above: Performed By: #### L 100.0100, L502.0500, L501.9520, L500.4050, L500.4100 ####[facility] [address] [place], [address] Absolute Neut 7.1 X10 3/uL Normal 2.0-7.7 [facility] Comment on above: Performed By: #### L 100.0100, L502.0500, L501.9520, L500.4050, L500.4100 ####[facility] [address] [place], [address] Basophils/100 WBC (Bld) 0.6 % Normal 0-1 [facility] Comment on above: Performed By: #### L 100.0100, L502.0500, L501.9520, L500.4050, L500.4100 ####[facility] [address] [place], [address] Eosinophils/100 WBC (Bld) 1.3 % Normal 0-5 [facility] Comment on above: Performed By: #### L 100.0100, L502.0500, L501.9520, L500.4050, L500.4100 ####[facility] [address] [place], [address] Erythrocyte distribution width (RBC) [Ratio] 13.6 % Normal 11.6-14.6 [facility] Comment on above: Performed By: #### L 100.0100, L502.0500, L501.9520, L500.4050, L500.4100 ####[facility] [address] [place], [address] Hematocrit (Bld) [Volume fraction] 41.6 % Normal 37-47 [facility] Comment on above: Performed By: #### L 100.0100, L502.0500, L501.9520, L500.4050, L500.4100 ####[facility] [address] [place], [address] Hemoglobin (Bld) [Mass/Vol] 13.1 g/dL Normal 12.0-15.0 [facility] Comment on above: Performed By: #### L 100.0100, L502.0500, L501.9520, L500.4050, L500.4100 ####[facility] [address] [place], [address] IG% 1.300 High 0.0-0.9 [facility] Comment on above: Result Comment: IG% - Immature Granulocytes (promyelocytes, myelocytes andmetamyelocytes) > 1% indicates that a LEFT SHIFT is Present. Performed By: #### L 100.0100, L502.0500, L501.9520, L500.4050, L500.4100 ####[facility] [address] [place], [address] Lymphocytes/100 WBC (Bld) 34.7 % Normal 19-41 [facility] Comment on above: Performed By: #### L 100.0100, L502.0500, L501.9520, L500.4050, L500.4100 ####[facility] [address] [place], [address] MCH (RBC) [Entitic mass] 26.3 pg Low 27.0-32.0 [facility] Comment on above: Performed By: #### L 100.0100, L502.0500, L501.9520, L500.4050, L500.4100 ####[facility] [address] [place], [address] MCHC (RBC) [Mass/Vol] 31.5 g/dL Low 32-36 [facility] Comment on above: Performed By: #### L 100.0100, L502.0500, L501.9520, L500.4050, L500.4100 ####[facility] [address] [place], [address] MCV (RBC) [Entitic vol] 83.5 fL Normal 81-99 [facility] Comment on above: Performed By: #### L 100.0100, L502.0500, L501.9520, L500.4050, L500.4100 ####[facility] [address] [place], [address] Monocytes/100 WBC (Bld) 5.4 % Normal 0-10 [facility] Comment on above: Performed By: #### L 100.0100, L502.0500, L501.9520, L500.4050, L500.4100 ####[facility] [address] [place], [address] Neutrophils/100 WBC (Bld) 56.7 % Normal 47-70 [facility] Comment on above: Performed By: #### L 100.0100, L502.0500, L501.9520, L500.4050, L500.4100 ####[facility] [address] [place], [address] Nucleated RBC (Bld) [#/Vol] 0 10*3/uL Normal 0-5 [facility] Comment on above: Performed By: #### L 100.0100, L502.0500, L501.9520, L500.4050, L500.4100 ####[facility] [address] [place], [address] Platelet mean volume (Bld) [Entitic vol] 9.4 fL Normal 6.2-12.0 [facility] Comment on above: Performed By: #### L 100.0100, L502.0500, L501.9520, L500.4050, L500.4100 ####[facility] [address] [place], [address] Platelets (Bld) [#/Vol] 368 10*3/uL Normal 150-450 [facility] Comment on above: Performed By: #### L 100.0100, L502.0500, L501.9520, L500.4050, L500.4100 ####[facility] [address] [place], [address] RBC (Bld) [#/Vol] 4.98 10*6/uL Normal 4.2-5.4 [facility] Comment on above: Performed By: #### L 100.0100, L502.0500, L501.9520, L500.4050, L500.4100 ####[facility] [address] [place], [address] RDW SD 41.3 fl Normal 35.1-43.9 [facility] Comment on above: Performed By: #### L 100.0100, L502.0500, L501.9520, L500.4050, L500.4100 ####[facility] [address] [place], [address] WBC (Bld) [#/Vol] 12.6 10*3/uL High 4.4-11.0 [facility] Comment on above: Performed By: #### L 100.0100, L502.0500, L501.9520, L500.4050, L500.4100 ####[facility] [address] [place], [address] Comprehensive Metabolic Prof ilon 04-25-2024 Albumin [Mass/Vol] 3.3 g/dL Normal 3.2-5.0 [facility] Comment on above: Performed By: #### L 100.0100, L502.0500, L501.9520, L500.4050, L500.4100 ####[facility] [address] [place], [address] Albumin/Globulin [Mass ratio] 0.6 {ratio} Low 0.9-2.4 [facility] Comment on above: Performed By: #### L 100.0100, L502.0500, L501.9520, L500.4050, L500.4100 ####[facility] [address] [place], [address] ALK P 89 U/L Normal 45-117 [facility] Comment on above: Performed By: #### L 100.0100, L502.0500, L501.9520, L500.4050, L500.4100 ####[facility] [address] [place], [address] ALT [Catalytic activity/Vol] 24 U/L Normal 13-56 [facility] Comment on above: Performed By: #### L 100.0100, L502.0500, L501.9520, L500.4050, L500.4100 ####[facility] [address] [place], [address] AST [Catalytic activity/Vol] 9 U/L Low 15-37 [facility] Comment on above: Performed By: #### L 100.0100, L502.0500, L501.9520, L500.4050, L500.4100 ####[facility] [address] [place], [address] Bilirubin [Mass/Vol] 0.30 mg/dL Normal 0.20-1.00 [facility] Comment on above: Result Comment: For patients on eltrombopag therapy, use of Dimension [place] TBIL is not recommended. Performed By: #### L 100.0100, L502.0500, L501.9520, L500.4050, L500.4100 ####[facility] [address] [place], [address] BUN/CRE 13.5 RATIO Normal 10-20 [facility] Comment on above: Performed By: #### L 100.0100, L502.0500, L501.9520, L500.4050, L500.4100 ####[facility] [address] [place], [address] CA,Total 9.1 mg/dL Normal 8.5-10.1 [facility] Comment on above: Performed By: #### L 100.0100, L502.0500, L501.9520, L500.4050, L500.4100 ####[facility] [address] [place], [address] Chloride [Moles/Vol] 108 mmol/L High 98-107 [facility] Comment on above: Performed By: #### L 100.0100, L502.0500, L501.9520, L500.4050, L500.4100 ####[facility] [address] [place], [address] CO2 [Moles/Vol] 23.0 mmol/L Normal 21.0-32.0 [facility] Comment on above: Performed By: #### L 100.0100, L502.0500, L501.9520, L500.4050, L500.4100 ####[facility] [address] [place], [address] Creatinine [Mass/Vol] 0.89 mg/dL Normal 0.55-1.02 [facility] Comment on above: Result Comment: The validity of the calculated GFR GFRAA in patients over70 years has not been determined. Clinical correlation isessential. Performed By: #### L 100.0100, L502.0500, L501.9520, L500.4050, L500.4100 ####[facility] [address] [place], [address] EST GFR - AA 95 mL/min Normal >60 [facility] Comment on above: Result Comment: Afri can [place] GFR Calc Performed By: #### L 100.0100, L502.0500, L501.9520, L500.4050, L500.4100 ####[facility] [address] [place], [address] GAP 7 Normal 5-15 [facility] Comment on above: Performed By: #### L 100.0100, L502.0500, L501.9520, L500.4050, L500.4100 ####[facility] [address] [place], [address] GFR/1.73 sq M.predicted among non-blacks MDRD (S/P/Bld) [Vol rate/Area] 78 mL/min/{1.73_m2} Normal >60 [facility] Comment on above: Result Comment: Non- GFR Calc Performed By: #### L 100.0100, L502.0500, L501.9520, L500.4050, L500.4100 ####[facility] [address] [place], [address] Globulin (S) [Mass/Vol] 5.2 g/dL High 2.2-4.2 [facility] Comment on above: Performed By: #### L 100.0100, L502.0500, L501.9520, L500.4050, L500.4100 ####[facility] [address] [place], [address] Glucose [Mass/Vol] 177 mg/dL High 74-106 [facility] Comment on above: Result Comment: Fast ing Glucose result greater than or equal to 126 mg/dLsuggests DIABETES MELLITUS per A.D.A. criteria. Performed By: #### L 100.0100, L502.0500, L501.9520, L500.4050, L500.4100 ####[facility] [address] [place], [address] Potassium [Moles/Vol] 4.2 mmol/L Normal 3.5-5.1 [facility] Comment on above: Performed By: #### L 100.0100, L502.0500, L501.9520, L500.4050, L500.4100 ####[facility] [address] [place], [address] Sodium [Moles/Vol] 137 mmol/L Normal 136-145 [facility] Comment on above: Performed By: #### L 100.0100, L502.0500, L501.9520, L500.4050, L500.4100 ####[facility] [address] [place], [address] T PROT 8.5 g/dL High 6.4-8.2 [facility] Comment on above: Performed By: #### L 100.0100, L502.0500, L501.9520, L500.4050, L500.4100 ####[facility] [address] [place], [address] Urea nitrogen [Mass/Vol] 12 mg/dL Normal 7-18 [facility] Comment on above: Performed By: #### L 100.0100, L502.0500, L501.9520, L500.4050, L500.4100 ####[facility] [address] [place], [address] Lipid Profileon 04-25-2024 Cholesterol [Mass/Vol] 209 mg/dL High 200 [facility] Comment on above: Result Comment: <200 mg/dL Desirable 200-240 mg/dL Borderline >240 mg/dL High Risk Performed By: #### L 100.0100, L502.0500, L501.9520, L500.4050, L500.4100 ####[facility] [address] [place], [address] Cholesterol in HDL [Mass/Vol] 37 mg/dL Low [facility] Comment on above: Result Comment: The drugs N-Acetylcysteine and Metamizole may falselydepress this assay. Reference Range HDL <40 mg/dL Low HDL Cholesterol HDL >or= 60 mg/dL High HDL Cholesterol Performed By: #### L 100.0100, L502.0500, L501.9520, L500.4050, L500.4100 ####[facility] [address] [place], [address] Cholesterol in LDL [Mass/Vol] 127 mg/dL Normal 0-130 [facility] Comment on above: Performed By: #### L 100.0100, L502.0500, L501.9520, L500.4050, L500.4100 ####[facility] [address] [place], [address] Cholesterol in VLDL [Mass/Vol] 45 mg/dL High 5-40 [facility] Comment on above: Performed By: #### L 100.0100, L502.0500, L501.9520, L500.4050, L500.4100 ####[facility] [address] [place], [address] Triglyceride [Mass/Vol] 227 mg/dL High [facility] Comment on above: Result Comment: The drugs N-Acetylcysteine and Metamizole may falselydepress this assay.Serum Triglycerides Reference Interval Normal <150 mg/dL Borderline high 150 - 199 mg/dL High 200 - 499 mg/dL Very High > or = 500 mg/dL Performed By: #### L 100.0100, L502.0500, L501.9520, L500.4050, L500.4100 ####[facility] [address] [place], [place], [address] Microalbumin,Random Urineon 04-25-2024 MICROALBUMIN,UR 147.0 mg/L Normal NO RANGE EST. [facility] Comment on above: Performed By: #### L 100.0100, L502.0500, L501.9520, L500.4050, L500.4100 ####[facility] [address] [place], [place], [address] Thyroid Stim Hormone (TSH)on 04-25-2024 TSH 0.825 uIU/mL Normal 0.358-3.740 [facility] Comment on above: Performed By: #### L 100.0100, L502.0500, L501.9520, L500.4050, L500.4100 ####[facility] [address] [place], [place], [address] Fungus cultureOrdered By: Neva Forrest on 07-23-2023 Fungus identified Cx Nom (Unsp spec) [facility] Fungus stainOrdered By: Jonas Forrest on 07-23-2023 Fungus identified Fungus stain Nom (Unsp spec) [facility] Glucose Glucometer (BldC) [M ass/Vol]Ordered By: Abdirizak Forrest on 07-23-2023 Glucose [Mass/Vol] 204 mg/dL 74-106 [facility] Comment on above: MANAGEMENT OF PATIEN T CARE PER NURSING PROTOCOL Laboratory - Chemistry and C hemistry - challengeOrdered By: Abdirahman Morton on 07-23-2023 HCG ( test) Ql (U) Negative [facility] Comment on above: Very dilute urine sp ecimens, as indicated by a low specificgravity, may not contain product sales representative levels of hCG. If is still suspected, a first morning urinespecimen should be collected 48 hours later and tested. No Panel InformationOrdered By: Abdirahman Morton on 07-23-2023 Negative [facility] Laboratory - Chemistry and C hemistry - challengeOrdered By: Abdirahman Morton on 07-16-2023 Magnesium [Mass/Vol] 2.0 mg/dL 1.6-2.6 [facility] No Panel InformationOrdered By: Abdirahman Morton on 07-16-2023 2.0 mg/dL 1.6-2.6 [facility] 25(OH)D3 SerPl-mCncon 2023 25-hydroxyvitamin D3 [Mass/Vol] 9.5 ng/mL Low 31.0-80.0 [facility] Comment on above: Order Comment: Speci men Type: BLOOD SPECIMEN Ordering Facility: [facility] Address: [address] [place] [address], [place] [address] Result Comment: Clas sification of 25 [place] Vitamin D status: Deficiency/Insufficiency: < or = 30 ng/ml. Sufficiency/Optimal Levels: 31-80 ng/mL Toxicity: > 100 ng/mL. Test performed by chemiluminescent immunoassay. Performed By: #### 1 989-3 #### [facility] CLIA [id number] [address] [place] [address] [place] CBC panel Auto (Bld)on 07-14 Erythrocyte distribution width (RBC) [Ratio] 13.2 % Normal 11.5-15.0 [facility] Comment on above: Order Comment: Speci men Type: BLOOD SPECIMEN Ordering Facility: [facility] Address: [address] [place] [address], [place] [address] Performed By: #### 5 8410-2 #### [facility] CLIA [id number] [address] [place] [address] [place] Hematocrit (Bld) [Volume fraction] 41.9 % Normal 36.0-46.0 [facility] Comment on above: Order Comment: Speci men Type: BLOOD SPECIMEN Ordering Facility: [facility] Address: [address] [place] [address] Performed By: #### 5 8410-2 #### [facility] [facility] CLIA [id number] [address] [place] [address] [place] Hemoglobin (Bld) [Mass/Vol] 12.8 g/dL Normal 11.5-15.5 [facility] Comment on above: Order Comment: Speci men Type: BLOOD SPECIMEN Ordering Facility: [facility] Address: [address] [place] [address] Performed By: #### 5 8410-2 #### [facility] CLIA [id number] [address] [place] [address] [place] MCH (RBC) [Entitic mass] 26.1 pg Normal 26.0-34.0 [facility] Comment on above: Order Comment: Speci men Type: BLOOD SPECIMEN Ordering Facility: [facility] Address: [address] [place] [address] Performed By: #### 5 8410-2 #### [facility] CLIA [id number] [address] [place] [address] [place] MCHC (RBC) [Mass/Vol] 30.5 g/dL Normal 30.5-36.0 [facility] Comment on above: Order Comment: Speci men Type: BLOOD SPECIMEN Ordering Facility: [facility] Address: [address] [place] [address] Performed By: #### 5 8410-2 #### [facility] CLIA [id number] [address] [place] [address] [place] MCV (RBC) [Entitic vol] 85.3 fL Normal 80.0-100.0 [facility] Comment on above: Order Comment: Speci men Type: BLOOD SPECIMEN Ordering Facility: [facility] Address: [address] [place] [address] Performed By: #### 5 8410-2 #### [facility] CLIA [id number] [address] [place] [address] [place] Nucleated RBC (Bld) [#/Vol] 10*3/uL Normal <0.01 [facility] Comment on above: Order Comment: Speci men Type: BLOOD SPECIMEN Ordering Facility: [facility] Address: [address] [place] [address] Performed By: #### 5 8410-2 #### [facility] CLIA [id number] [address] [place] [address] [place] Platelet mean volume (Bld) [Entitic vol] 10.0 fL Normal 9.0-12.7 [facility] Comment on above: Order Comment: Speci men Type: BLOOD SPECIMEN Ordering Facility: [facility] Address: [address] [place] [address] Performed By: #### 5 8410-2 #### [facility] CLIA [id number] [address] [place] [address] [place] Platelets (Bld) [#/Vol] 417 10*3/uL High 150-400 [facility] Comment on above: Order Comment: Speci men Type: BLOOD SPECIMEN Ordering Facility: [facility] Address: [address] [place] [address] Performed By: #### 5 8410-2 #### [facility] CLIA [id number] [address] [place] [address] [place] RBC (Bld) [#/Vol] 4.91 10*6/uL Normal 3.90-5.20 [facility] Comment on above: Order Comment: Speci men Type: BLOOD SPECIMEN Ordering Facility: [facility] Address: [address] [place] [address] Performed By: #### 5 8410-2 #### [facility] CLIA [id number] [address] [address] [place] WBC (Bld) [#/Vol] 7.59 10*3/uL Normal 3.70-11.00 [facility] Comment on above: Order Comment: Speci men Type: BLOOD SPECIMEN Ordering Facility: [facility] Address: [address] [place] [address], [place] [address] Performed By: #### 5 8410-2 #### [facility] CLIA [id number] [address] [place] [id number] [place] Comprehensive metabolic 2000 panelon 07-14-2023 Albumin [Mass/Vol] 4.0 g/dL Normal 3.9-4.9 [facility] Comment on above: Order Comment: Speci men Type: BLOOD SPECIMEN Ordering Facility: [facility] Address: [address] [place] [address], [place] [address] Performed By: #### 3 016-3, 84912-2 #### [facility] CLIA [id number] [address] [place] [id number] [place] ALP [Catalytic activity/Vol] 106 U/L Normal 34-123 [facility] Comment on above: Order Comment: Speci men Type: BLOOD SPECIMEN Ordering Facility: [facility] Address: [address] [place] [address], [place] [address] Performed By: #### 3 016-3, 17941-2 #### [facility] CLIA [id number] [address] [place] [id number] [place] ALT [Catalytic activity/Vol] 11 U/L Normal 7-38 [facility] Comment on above: Order Comment: Speci men Type: BLOOD SPECIMEN Ordering Facility: [facility] Address: [address] [place] [address], [place] [address] Performed By: #### 3 016-3, 07085-0 #### [facility] CLIA [id number] [address] [place] [id number] [place] Anion gap [Moles/Vol] 14 mmol/L Normal 9-18 [facility] Comment on above: Order Comment: Speci men Type: BLOOD SPECIMEN Ordering Facility: [facility] Address: [address] [place] [address], [place] [address] Performed By: #### 3 016-3, #### [facility] CLIA [id number] [address] [place] [address] [place] AST [Catalytic activity/Vol] 13 U/L Normal 13-35 [facility] Comment on above: Order Comment: Speci men Type: BLOOD SPECIMEN Ordering Facility: [facility] Address: [address] [place] [address], [place] [address] Performed By: #### 3 016-3, #### [facility] CLIA [id number] [address] [place] [address] [place] Bilirubin [Mass/Vol] 0.3 mg/dL Normal 0.2-1.3 [facility] Comment on above: Order Comment: Speci men Type: BLOOD SPECIMEN Ordering Facility: [facility] Address: [address] [place] [address], [place] [address] Performed By: #### 3 016-3, #### [facility] CLIA [id number] [address] [place] [address] [place] Calcium [Mass/Vol] 9.6 mg/dL Normal 8.5-10.2 [facility] Comment on above: Order Comment: Speci men Type: BLOOD SPECIMEN Ordering Facility: [facility] Address: [address] [place] [address], [place] [address] Performed By: #### 3 016-3, #### [facility] CLIA [id number] [address] [place] [id number] [place] Chloride [Moles/Vol] 101 mmol/L Normal 97-105 [facility] Comment on above: Order Comment: Speci men Type: BLOOD SPECIMEN Ordering Facility: [facility] Address: [address] [place] [address], [place] [address] Performed By: #### 3 016-3, 79910-2 #### [facility] CLIA [id number] [address] [place] [address] [place] CO2 [Moles/Vol] 23 mmol/L Normal 22-30 [facility] Comment on above: Order Comment: Speci men Type: BLOOD SPECIMEN Ordering Facility: [facility] Address: [address] [place] [address] Performed By: #### 3 016-3, 04582-9 #### [facility] CLIA [id number] [address] [place] [address] [place] Creatinine [Mass/Vol] 0.69 mg/dL Normal 0.58-0.96 [facility] Comment on above: Order Comment: Speci men Type: BLOOD SPECIMEN Ordering Facility: [facility] Address: [address] [place] [address], [place] [address] Performed By: #### 3 016-3, 08218-6 #### [facility] CLIA [id number] [address] [place] [address] Creatinine and Glomerular filtration rate.predicted panel (S/P/Bld) 119 mL/min/1.73m??? Normal >=60 [facility] Comment on above: Order Comment: Speci men Type: BLOOD SPECIMEN Ordering Facility: [facility] Address: [address] [place] [address] Result Comment: Samreen mated Glomerular Filtration Rate [...] actual GFR. Performed By: #### 3 016-3, #### [facility] CLIA [id number] [address] [place] [address] [place] Glucose [Mass/Vol] 158 mg/dL High 74-99 [facility] Comment on above: Order Comment: Speci men Type: BLOOD SPECIMEN Ordering Facility: [facility] Address: [address] [place] [address], [place] [address] Result Comment: The [place] Diabetes Association (ADA) provides guidance for cutoff [...] Standards of Medical Care in Diabetes 2016, [place] [employer]. Diabetes Care. 2016.39(Suppl 1). Performed By: #### 3 -3, #### [facility] CLIA [id number] [address] [place] [address] [place] Potassium [Moles/Vol] 4.4 mmol/L Normal 3.7-5.1 [facility] Comment on above: Order Comment: Timuri men Type: BLOOD SPECIMEN Ordering Facility: [facility] Address: [address] [place] [address], [place] [address] Performed By: #### 3 -3, 24501-1 #### [facility] CLIA [id number] [address] [place] [id number] [place] Protein [Mass/Vol] 7.5 g/dL Normal 6.3-8.0 [facility] Comment on above: Order Comment: Timuri men Type: BLOOD SPECIMEN Ordering Facility: [facility] Address: [address] [place] [address], [place] [address] Performed By: #### 3 3, 43238-7 #### [facility] CLIA [id number] [address] [place] [address] [place] Sodium [Moles/Vol] 138 mmol/L Normal 136-144 [facility] Comment on above: Order Comment: Speci men Type: BLOOD SPECIMEN Ordering Facility: [facility] Address: [address] [place] [address] Performed By: #### 3 016-3, 24980-8 #### [facility] CLIA [id number] [address] [place] [address] [place] Urea nitrogen [Mass/Vol] 9 mg/dL Normal 7-21 [facility] Comment on above: Order Comment: Speci men Type: BLOOD SPECIMEN Ordering Facility: [facility] Address: [address] [place] [address] Performed By: #### 3 016-3, 95617-5 #### [facility] CLIA [id number] [address] [place] [address] [place] HbA1c (Bld)on 07-14-2023 Average glucose Estimated from glycated hemoglobin (Bld) [Mass/Vol] 163 mg/dL Normal [facility] Comment on above: Order Comment: Speci men Type: BLOOD SPECIMEN Ordering Facility: [facility] Address: [address] [place] [address] Result Comment: eAG: (Estimated average glucose) is a calculated value from HgbA1c and is product sales representative of the average blood glucose level in the last 2-3 month period. Performed By: #### 5 5454-3 #### [facility] CLIA [id number] [address] [place] [address] [place] HbA1c (Bld) [Mass fraction] 7.3 % High 4.3-5.6 [facility] Comment on above: Order Comment: Speci men Type: BLOOD SPECIMEN Ordering Facility: [facility] Address: [address] [place] [address] Result Comment: [place] Diabetes Association guidelines indicate that patients with HgbA1c in the range 5.7-6.4% are at increased risk for development of diabetes, and intervention by lifestyle modification may be beneficial. HgbA1c greater or equal to 6.5% is considered diagnostic of diabetes. Performed By: #### 5 5454-3 #### [facility] CLIA [id number] [address] [place] [address] [place] TSH SerPl-aCncon 07-14-2023 TSH Qn 0.660 m[IU]/L Normal 0.270-4.200 [facility] Comment on above: Order Comment: Speci men Type: BLOOD SPECIMEN Ordering Facility: [facility] Address: [address] [place] [address], [place] [id number] Result Comment: If t he patient is , TSH reference range varies by gestational period: First Trimester (weeks 9-12): 0.180-2.990 mIU/L Second Trimester: 0.110-3.980 mIU/L Third Trimester: 0.480-4.710 mIU/L Francois Matthews et al. A Practical Approach for the Verifications and Determination of Site- and Trimester-Specific Reference Intervals for Thyroid Function tests in . Thyroid, 2019:29:3:412-420. Emeka Farrar, et al. 2017 Guidelines of the [place] Thyroid Association for the Diagnosis and Management of Thyroid Disease during and the . Thyroid, 2017:27:3:315-389. Performed By: #### 3 016-3, 65377-4 #### [facility] CLIA [id number] [facility] [place] [id number] [place] Absolute lymphocyte countOrd ered By: Willie Dhillon on 07-12-2023 Lymphocytes Auto (Unsp spec) [#/Vol] 4.46 10*3/uL 0.83-4.51 [facility] Basophil percentageOrdered B y: Willie Dhillon on 07-12-2023 Basophil percentage 5-10 SEEN /hpf 0-5 [facility] Basophil percentage 177 mg[facility]dL 74-[facility] 9.0 g/dL 6.4-8.2 [facility] Basophil percentage 0.60 mg/dL 0.20-1.00 [facility] Basophil percentage 136 mmol/L 136-145 [facility] Basophil percentage 4.2 mmol/L 3.5-5.1 [facility] Basophil percentage 100 mmol/L 98-107 [facility] Basophils (Bld) [#/Vol] 10.5 10*3/uL 4.4-11.0 [facility] Basophils (Bld) [#/Vol] 5.4 10*3/uL 2.0-7.7 [facility] Basophils/100 WBC (Bld) 51.3 % 47-70 [facility] Basophils/100 WBC (Bld) 0.3 % 0-5 [facility] Basophils/100 WBC (Bld) 0.4 % 0-1 [facility] Beta hCG serum qualOrdered B y: Willie Dhillon on 07-12-2023 Beta HCG ( test) Ql Negative [facility] Bilirubin Test strip Ql (U)O rdered By: Willie Dhillon on 07-12-2023 Bilirubin Ql (U) 1 mg/dL Negative [facility] Blood erythrocytes count (nu mber/volume)Ordered By: Willie Dhillon on 07-12-2023 RBC (Bld) [#/Vol] 5.20 10*6/uL 4.2-5.4 [facility] Blood hemoglobin measurement (mass/volume)Ordered By: Willie Dhillon on 07-12-2023 Hemoglobin (Bld) [Mass/Vol] 13.6 g/dL 12.0-15.0 [facility] Blood lymphocytes/100 leukoc ytesOrdered By: Willie Dhillon on 07-12-2023 Lymphocytes/100 WBC (Bld) 42.6 % 19-41 [facility] Blood monocytes/100 leukocyt esOrdered By: Willie Dhillon on 07-12-2023 Monocytes/100 WBC (Bld) 5.2 % 0-10 [facility] Blood platelet mean volumeOr dered By: Willie Dhillon on 07-12-2023 Platelet mean volume (Bld) [Entitic vol] 9.2 fL 6.2-12.0 [facility] Determination of erythrocyte mean corpuscular volume (MCV)Ordered By: Willie Dhillon on 07-12-2023 MCV (RBC) [Entitic vol] 82.7 fL 81-99 [facility] Hematocrit Auto (Bld) [Volum e fraction]Ordered By: Willie Dhillon on 07-12-2023 Hematocrit (Bld) [Volume fraction] 43.0 % 37-47 [facility] Ketones Test strip Ql (U)Ord ered By: Willie Dhillon on 07-12-2023 Ketones Ql (U) 5 mg/dl Negative [facility] MCHC Auto (RBC) [Mass/Vol]Or dered By: Willie Dhillon on 07-12-2023 MCHC (RBC) [Mass/Vol] 31.6 g/dL 32-36 [facility] Mucus LM Ql (Urine sed)Order ed By: Willie Dhillon on 07-12-2023 Mucus Ql (Urine sed) 0 SEEN /hpf [facility] Nitrite Test strip Ql (U)Ord ered By: Willie Dhillon on 07-12-2023 Nitrite Ql (U) Negative Negative [facility] No Panel InformationOrdered By: Willie Dhillon on 07-12-2023 26.2 pg 27.0-32.0 [facility] 13.3 % 11.6-14.6 [facility] 39.8 fl 35.1-43.9 [facility] 0.200 % 0.0-0.9 [facility] 0 % 0-5 [facility] 68 mL/min >60 [facility] 82 mL/min >60 [facility] 75.55 ml/min [facility] 12.9 RATIO 10-20 [facility] 5.4 g/dL 2.2-4.2 [facility] 30 U/L 13-75 [facility] 112 U/L 45-117 [facility] 12 U/L 13-56 [facility] 28.0 mmol/L 21.0-32.0 [facility] Negative < 50 ng/mL [facility] Positive < 500 ng/mL [facility] Platelets bldOrdered By: Heath Dhillno on 07-12-2023 Platelets (Bld) [#/Vol] 459 10*3/uL 150-450 [facility] Protein Test strip Ql (U)Ord ered By: Willie Dhillon on 07-12-2023 Protein Ql (U) 30 mg/dl Negative [facility] Serum or plasma albumin hussein urement (mass/volume)Ordered By: Willie Dhillon on 07-12-2023 Albumin [Mass/Vol] 3.6 g/dL 3.2-5.0 [facility] Serum or plasma albumin/glob ulin mass ratioOrdered By: Willie Dhillon on 07-12-2023 Albumin/Globulin [Mass ratio] 0.7 {ratio} 0.9-2.4 [facility] Serum or plasma calcium hussein urement (mass/volume)Ordered By: Willie Dhillon on 07-12-2023 Calcium [Mass/Vol] 9.3 mg/dL 8.5-10.1 [facility] Serum or plasma creatinine m easurement (mass/volume)Ordered By: Willie Dhillon on 07-12-2023 Creatinine [Mass/Vol] 1.01 mg/dL 0.55-1.02 [facility] Serum or plasma urea nitroge n measurement (mass/volume)Ordered By: Willie Dhillon on 07-12-2023 Urea nitrogen [Mass/Vol] 13 mg/dL 7-18 [facility] Squamous epithelial cells de tection in urine sediment by light microscopyOrdered By: Willie Dhillon on 07-12-2023 Epithelial cells.squamous LM Ql (Urine sed) 10-25 SEEN /hpf 5-10 [facility] Thin prep Papanicolaou smear with manual screeningOrdered By: Willie Dhillon on 07-12-2023 Thin prep Papanicolaou smear with manual screening 21 U/L 15-37 [facility] Thin prep Papanicolaou smear with manual screening 8 5-15 [facility] Urine blood detectionOrdered By: Willie Dhillon on 07-12-2023 RBC Ql (U) 10 /ul Negative [facility] RBC Ql (U) 0-5 SEEN /hpf 0-5 [facility] Urine clarityOrdered By: Heath Dhillon on 07-12-2023 Clarity (U) Cloudy Clear [facility] Urine color determinationOrd ered By: Willie Dhillon on 07-12-2023 Color (U) Yellow Yellow [facility] Urine glucose detectionOrder ed By: Willie Dhillon on 07-12-2023 Glucose Ql (U) Normal mg/dl Normal [facility] Urine leukocyte esterase det ection by dipstickOrdered By: Willie Dhillon on 07-12-2023 Leukocyte esterase Test strip Ql (U) 100 /ul Negative [facility] Urine pHOrdered By: Willie mo on 07-12-2023 pH (U) 7.0 [pH] 5.0 - 8.0 [facility] Urine phencyclidine (PCP) de tectionOrdered By: Willie Dhillon on 07-12-2023 Phencyclidine Ql (U) Negative < 25 ng/mL [facility] Urine sediment bacteria coun t by microscopy (number/high power field)Ordered By: Willie Dhillon on 07-12-2023 Bacteria LM.HPF (Urine sed) [#/Area] 2 /[HPF] None Seen [facility] Urine specific gravity measu rementOrdered By: Willie Dhillon on 07-12-2023 Specific gravity (U) [Rel density] 1.010 1.002-1.030 [facility] Urobilinogen Auto test strip Ql (U)Ordered By: Willie Dhillon on 07-12-2023 Urobilinogen Ql (U) 1 mg/dl Normal [facility] Absolute lymphocyte countOrd ered By: Alex Christiansen on 06-30-2023 Lymphocytes Auto (Unsp spec) [#/Vol] 2.97 10*3/uL 0.83-4.51 [facility] Basophil percentageOrdered B y: Alex Christiansen on 06-30-2023 Basophil percentage 201 mg/dL 74-106 [facility] Basophil percentage 8.0 g/dL 6.4-8.2 [facility] Basophil percentage 0.50 mg/dL 0.20-1.00 [facility] Basophil percentage 137 mmol/L 136-145 [facility] Basophil percentage 3.3 mmol/L 3.5-5.1 [facility] Basophil percentage 103 mmol/L 98-107 [facility] Basophils (Bld) [#/Vol] 9.9 10*3/uL 4.4-11.0 [facility] Basophils (Bld) [#/Vol] 6.2 10*3/uL 2.0-7.7 [facility] Basophils/100 WBC (Bld) 62.9 % 47-70 [facility] Basophils/100 WBC (Bld) 0.1 % 0-5 [facility] Basophils/100 WBC (Bld) 0.5 % 0-1 [facility] Blood erythrocytes count (nu mber/volume)Ordered By: Alex Christiansen on 06-30-2023 RBC (Bld) [#/Vol] 4.56 10*6/uL 4.2-5.4 [facility] Blood hemoglobin measurement (mass/volume)Ordered By: Alex Christiansen on 06-30-2023 Hemoglobin (Bld) [Mass/Vol] 12.2 g/dL 12.0-15.0 [facility] Blood lymphocytes/100 leukoc ytesOrdered By: Alex Christiansen on 06-30-2023 Lymphocytes/100 WBC (Bld) 30.0 % 19-41 [facility] Blood monocytes/100 leukocyt esOrdered By: Alex Christiansen on 06-30-2023 Monocytes/100 WBC (Bld) 6.1 % 0-10 [facility] Blood platelet mean volumeOr dered By: Alex Christiansen on 06-30-2023 Platelet mean volume (Bld) [Entitic vol] 9.0 fL 6.2-12.0 [facility] Determination of erythrocyte mean corpuscular volume (MCV)Ordered By: Alex Christiansen on 06-30-2023 MCV (RBC) [Entitic vol] 84.0 fL 81-99 [facility] Hematocrit Auto (Bld) [Volum e fraction]Ordered By: Alex Christiansen on 06-30-2023 Hematocrit (Bld) [Volume fraction] 38.3 % 37-47 [facility] MCHC Auto (RBC) [Mass/Vol]Or dered By: Alex Christiansen on 06-30-2023 MCHC (RBC) [Mass/Vol] 31.9 g/dL 32-36 [facility] No Panel InformationOrdered By: Alex Christiansen on 06-30-2023 26.8 pg 27.0-32.0 [facility] 13.6 % 11.6-14.6 [facility] 41.9 fl 35.1-43.9 [facility] 0.400 % 0.0-0.9 [facility] 0 % 0-5 [facility] 81 mL/min >60 [facility] 98 mL/min >60 [facility] 88.73 ml/min [facility] 10.4 RATIO 10-20 [facility] 4.6 g/dL 2.2-4.2 [facility] 22 U/L 13-75 [facility] 114 U/L 45-117 [facility] 11 U/L 13-56 [facility] 26.0 mmol/L 21.0-32.0 [facility] Platelets bldOrdered By: Milton Christiansen on 06-30-2023 Platelets (Bld) [#/Vol] 437 10*3/uL 150-450 [facility] Serum or plasma albumin hussein urement (mass/volume)Ordered By: Alex Christiansen on 06-30-2023 Albumin [Mass/Vol] 3.4 g/dL 3.2-5.0 [facility] Serum or plasma albumin/glob ulin mass ratioOrdered By: Alex Christiansen on 06-30-2023 Albumin/Globulin [Mass ratio] 0.7 {ratio} 0.9-2.4 [facility] Serum or plasma calcium hussein urement (mass/volume)Ordered By: Alex Christiansen on 06-30-2023 Calcium [Mass/Vol] 9.4 mg/dL 8.5-10.1 [facility] Serum or plasma creatinine m easurement (mass/volume)Ordered By: Alex Christiansen on 06-30-2023 Creatinine [Mass/Vol] 0.86 mg/dL 0.55-1.02 [facility] Serum or plasma urea nitroge n measurement (mass/volume)Ordered By: Alex Christiansen on 06-30-2023 Urea nitrogen [Mass/Vol] 9 mg/dL 7-18 [facility] Thin prep Papanicolaou smear with manual screeningOrdered By: Alex Christiansen on 06-30-2023 Thin prep Papanicolaou smear with manual screening 7 U/L 15-37 [facility] Thin prep Papanicolaou smear with manual screening 8 5-15 [facility] Absolute lymphocyte countOrd ered By: Drew Hinson on 06-28-2023 Lymphocytes Auto (Unsp spec) [#/Vol] 2.31 10*3/uL 0.83-4.51 [facility] Basophil percentageOrdered B y: Drew Hinson on 06-28-2023 Basophil percentage 0-5 SEEN /hpf 0-5 [facility] Basophil percentage 221 mg/dL 74-106 [facility] Basophil percentage 9.3 g/dL 6.4-8.2 [facility] Basophil percentage 0.60 mg/dL 0.20-1.00 [facility] Basophil percentage 136 mmol/L 136-145 [facility] Basophil percentage 3.2 mmol/L 3.5-5.1 [facility] Basophil percentage 102 mmol/L 98-107 [facility] Basophils (Bld) [#/Vol] 9.2 10*3/uL 4.4-11.0 [facility] Basophils (Bld) [#/Vol] 6.4 10*3/uL 2.0-7.7 [facility] Basophils/100 WBC (Bld) 0.5 % 0-1 [facility] Basophils/100 WBC (Bld) 69.1 % 47-70 [facility] Basophils/100 WBC (Bld) 0.1 % 0-5 [facility] Bilirubin [Mass/Vol] 0.60 mg/dL 0.20-1.00 [facility] Comment on above: For patients on eltr ombopag therapy, use of Dimension [place] TBIL is not recommended. Chloride [Moles/Vol] 102 mmol/L 98-107 [facility] Eosinophils/100 WBC (Bld) 0.1 % 0-5 [facility] Glucose [Mass/Vol] 221 mg/dL 74-106 [facility] Comment on above: Glucose result great er than or equal to 200 mg/dLsuggests DIABETES MELLITUS per A.D.A. criteria. Neutrophils (Bld) [#/Vol] 6.4 10*3/uL 2.0-7.7 [facility] Neutrophils/100 WBC (Bld) 69.1 % 47-70 [facility] Potassium [Moles/Vol] 3.2 mmol/L 3.5-5.1 [facility] Protein [Mass/Vol] 9.3 g/dL 6.4-8.2 [facility] Sodium [Moles/Vol] 136 mmol/L 136-145 [facility] WBC (Bld) [#/Vol] 9.2 10*3/uL 4.4-11.0 [facility] Bilirubin Test strip Ql (U)O rdered By: Drew Hinson on 06-28-2023 Bilirubin Ql (U) 1 mg/dL Negative [facility] Comment on above: COLOR OF URINE MAY A FFECT DIPSTICK RESULTS. Blood erythrocytes count (nu mber/volume)Ordered By: Drew Hinson on 06-28-2023 RBC (Bld) [#/Vol] 4.85 10*6/uL 4.2-5.4 [facility] Blood hemoglobin measurement (mass/volume)Ordered By: Drew Hinson on 06-28-2023 Hemoglobin (Bld) [Mass/Vol] 13.0 g/dL 12.0-15.0 [facility] Blood lymphocytes/100 leukoc ytesOrdered By: Drew Hinson on 06-28-2023 Lymphocytes/100 WBC (Bld) 25.1 % 19-41 [facility] Blood monocytes/100 leukocyt esOrdered By: Drew Hinson on 06-28-2023 Monocytes/100 WBC (Bld) 4.8 % 0-10 [facility] Blood platelet mean volumeOr dered By: Drew Hinson on 06-28-2023 Platelet mean volume (Bld) [Entitic vol] 8.9 fL 6.2-12.0 [facility] Determination of erythrocyte mean corpuscular volume (MCV)Ordered By: Drew Hinson on 06-28-2023 MCV (RBC) [Entitic vol] 83.7 fL 81-99 [facility] Hematocrit Auto (Bld) [Volum e fraction]Ordered By: Drew Hinson on 06-28-2023 Hematocrit (Bld) [Volume fraction] 40.6 % 37-47 [facility] Ketones Test strip Ql (U)Ord ered By: Drew Hinson on 06-28-2023 Ketones Ql (U) 50 mg/dl Negative [facility] Laboratory - Chemistry and C hemistry - challengeOrdered By: Drew Hinson on 06-28-2023 ALP [Catalytic activity/Vol] 128 U/L 45-117 [facility] ALT [Catalytic activity/Vol] 13 U/L 13-56 [facility] CO2 [Moles/Vol] 25.0 mmol/L 21.0-32.0 [facility] Globulin (S) [Mass/Vol] 5.4 g/dL 2.2-4.2 [facility] Lipase [Catalytic activity/Vol] 28 U/L 13-75 [facility] Comment on above: Please note:LIPASE r evised reference range effective 22. New Lipase methodology. Expected to produce lower values than the previous assay method. NEW Reference Range: 13 - 75 U/L Urea nitrogen/Creatinine [Mass ratio] 11.7 mg/mg 10-20 [facility] - Hematology and Cell countsOrdered By: Drew Hinson on 06-28-2023 Erythrocyte distribution width (RBC) [Entitic vol] 41.7 fL 35.1-43.9 [facility] Erythrocyte distribution width (RBC) [Ratio] 13.6 % 11.6-14.6 [facility] Immature granulocytes/100 WBC (Bld) 0.400 % 0.0-0.9 [facility] Comment on above: IG% - Immature Granu locytes (promyelocytes, myelocytes and metamyelocytes) > 1% indicates that a LEFT SHIFT is Present. MCH (RBC) [Entitic mass] 26.8 pg 27.0-32.0 [facility] Nucleated RBC/100 WBC (Bld) [Ratio] 0 % 0-5 [facility] MCHC Auto (RBC) [Mass/Vol]Or dered By: Drew Hinson on 06-28-2023 MCHC (RBC) [Mass/Vol] 32.0 g/dL 32-36 [facility] Mucus LM Ql (Urine sed)Order ed By: Drew Hinson on 06-28-2023 Mucus Ql (Urine sed) 1+ /hpf [facility] Nitrite Test strip Ql (U)Ord ered By: Drew Hinson on 06-28-2023 Nitrite Ql (U) Negative Negative [facility] No Panel InformationOrdered By: Drew Hinson on 06-28-2023 Estimated Creatinine Clearance Calc 81.18 ml/min [facility] Estimated GFR (MDRD) Amer 89 mL/min >60 [facility] Comment on above: GFR Calc Estimated GFR (MDRD) Non-Af Amer 74 mL/min >60 [facility] Comment on above: Non- GFR Calc 26.8 pg 27.0-32.0 [facility] 13.6 % 11.6-14.6 [facility] 41.7 fl 35.1-43.9 [facility] 0.400 % 0.0-0.9 [facility] 0 % 0-5 [facility] 74 mL/min >60 [facility] 89 mL/min >60 [facility] 81.18 ml/min [facility] 11.7 RATIO 10-20 [facility] 5.4 g/dL 2.2-4.2 [facility] 28 U/L 13-75 [facility] 128 U/L 45-117 [facility] 13 U/L 13-56 [facility] 25.0 mmol/L 21.0-32.0 [facility] Platelets bldOrdered By: Dwight Hinson on 06-28-2023 Platelets (Bld) [#/Vol] 491 10*3/uL 150-450 [facility] Protein Test strip Ql (U)Ord ered By: Drew Hinson on 06-28-2023 Protein Ql (U) 30 mg/dl Negative [facility] Serum or plasma albumin hussein urement (mass/volume)Ordered By: Drew Hinson on 06-28-2023 Albumin [Mass/Vol] 3.9 g/dL 3.2-5.0 [facility] Serum or plasma albumin/glob ulin mass ratioOrdered By: Drew Hinson on 06-28-2023 Albumin/Globulin [Mass ratio] 0.7 {ratio} 0.9-2.4 [facility] Serum or plasma calcium hussein urement (mass/volume)Ordered By: Drew Hinson on 06-28-2023 Calcium [Mass/Vol] 9.6 mg/dL 8.5-10.1 [facility] Serum or plasma creatinine m easurement (mass/volume)Ordered By: Drew Hinson on 06-28-2023 Creatinine [Mass/Vol] 0.94 mg/dL 0.55-1.02 [facility] Comment on above: The validity of the calculated GFR & GFRAA in patients over 70 years has not been determined. Clinical correlation is essential. Serum or plasma urea nitroge n measurement (mass/volume)Ordered By: Drew Hinson on 06-28-2023 Urea nitrogen [Mass/Vol] 11 mg/dL 7-18 [facility] Squamous epithelial cells de tection in urine sediment by light microscopyOrdered By: Drew Hinson on 06-28-2023 Epithelial cells.squamous LM Ql (Urine sed) 5-10 SEEN /hpf 5-10 [facility] Thin prep Papanicolaou smear with manual screeningOrdered By: Drew Hinson on 06-28-2023 Thin prep Papanicolaou smear with manual screening 11 U/L 15-37 [facility] Thin prep Papanicolaou smear with manual screening 9 5-15 [facility] Urine blood detectionOrdered By: Drew Hinson on 06-28-2023 RBC Ql (U) 25 /ul Negative [facility] RBC Ql (U) 0-5 SEEN /hpf 0-5 [facility] Urine clarityOrdered By: Dwight Hinson on 06-28-2023 Clarity (U) Cloudy Clear [facility] Urine color determinationOrd ered By: Drew Hinson on 06-28-2023 Color (U) Yellow Yellow [facility] Urine glucose detectionOrder ed By: Drew Hinson on 06-28-2023 Glucose Ql (U) 50 mg/dl Normal [facility] Urine leukocyte esterase det ection by dipstickOrdered By: rDew Hinson on 06-28-2023 Leukocyte esterase Test strip Ql (U) 25 /ul Negative [facility] Urine pHOrdered By: Drew castellanos on 06-28-2023 pH (U) 6.0 [pH] 5.0 - 8.0 [facility] Urine sediment bacteria coun t by microscopy (number/high power field)Ordered By: Drew Hinson on 06-28-2023 Bacteria LM.HPF (Urine sed) [#/Area] 2 /[HPF] None Seen [facility] Urine specific gravity measu rementOrdered By: Drew Hinson on 06-28-2023 Specific gravity (U) [Rel density] 1.020 1.002-1.030 [facility] Urobilinogen Auto test strip Ql (U)Ordered By: Drew Hinson on 06-28-2023 Urobilinogen Ql (U) 1 mg/dl Normal [facility] Absolute lymphocyte countOrd ered By: Taiwo Chen on 06-26-2023 Lymphocytes Auto (Unsp spec) [#/Vol] 2.63 10*3/uL 0.83-4.51 [facility] Basophil percentageOrdered B y: Taiwo Chen on 06-26-2023 Basophil percentage 228 mg/dL 74-106 [facility] Basophil percentage 8.4 g/dL 6.4-8.2 [facility] Basophil percentage 0.30 mg/dL 0.20-1.00 [facility] Basophil percentage 136 mmol/L 136-145 [facility] Basophil percentage 3.8 mmol/L 3.5-5.1 [facility] Basophil percentage 102 mmol/L 98-107 [facility] Basophils (Bld) [#/Vol] 8.6 10*3/uL 4.4-11.0 [facility] Basophils (Bld) [#/Vol] 5.5 10*3/uL 2.0-7.7 [facility] Basophils/100 WBC (Bld) 0.6 % 0-1 [facility] Basophils/100 WBC (Bld) 63.6 % 47-70 [facility] Basophils/100 WBC (Bld) 0.2 % 0-5 [facility] Bilirubin [Mass/Vol] 0.30 mg/dL 0.20-1.00 [facility] Comment on above: For patients on eltr ombopag therapy, use of Dimension [place] TBIL is not recommended. Chloride [Moles/Vol] 102 mmol/L 98-107 [facility] Eosinophils/100 WBC (Bld) 0.2 % 0-5 [facility] Glucose [Mass/Vol] 228 mg/dL 74-106 [facility] Comment on above: Glucose result great er than or equal to 200 mg/dLsuggests DIABETES MELLITUS per A.D.A. criteria. Neutrophils (Bld) [#/Vol] 5.5 10*3/uL 2.0-7.7 [facility] Neutrophils/100 WBC (Bld) 63.6 % 47-70 [facility] Potassium [Moles/Vol] 3.8 mmol/L 3.5-5.1 [facility] Protein [Mass/Vol] 8.4 g/dL 6.4-8.2 [facility] Sodium [Moles/Vol] 136 mmol/L 136-145 [facility] WBC (Bld) [#/Vol] 8.6 10*3/uL 4.4-11.0 [facility] Blood erythrocytes count (nu mber/volume)Ordered By: Taiwo Chen on 06-26-2023 RBC (Bld) [#/Vol] 4.31 10*6/uL 4.2-5.4 [facility] Blood hemoglobin measurement (mass/volume)Ordered By: Taiwo Chen on 06-26-2023 Hemoglobin (Bld) [Mass/Vol] 11.6 g/dL 12.0-15.0 [facility] Blood lymphocytes/100 leukoc ytesOrdered By: Tawio Chne on 06-26-2023 Lymphocytes/100 WBC (Bld) 30.6 % 19-41 [facility] Blood monocytes/100 leukocyt esOrdered By: Taiwo Chen on 06-26-2023 Monocytes/100 WBC (Bld) 4.3 % 0-10 [facility] Blood platelet mean volumeOr dered By: Taiwo Chen on 06-26-2023 Platelet mean volume (Bld) [Entitic vol] 9.3 fL 6.2-12.0 [facility] Determination of erythrocyte mean corpuscular volume (MCV)Ordered By: Taiwo Chen on 06-26-2023 MCV (RBC) [Entitic vol] 84.7 fL 81-99 [facility] Hematocrit Auto (Bld) [Volum e fraction]Ordered By: Taiwo Chen on 06-26-2023 Hematocrit (Bld) [Volume fraction] 36.5 % 37-47 [facility] - Chemistry and C hemistry - challengeOrdered By: Taiwo Chen on 06-26-2023 ALP [Catalytic activity/Vol] 135 U/L 45-117 [facility] ALT [Catalytic activity/Vol] 15 U/L 13-56 [facility] CO2 [Moles/Vol] 26.0 mmol/L 21.0-32.0 [facility] Globulin (S) [Mass/Vol] 5.0 g/dL 2.2-4.2 [facility] Urea nitrogen/Creatinine [Mass ratio] 11.4 mg/mg 10-20 [facility] - Hematology and Cell countsOrdered By: Taiwo Chen on 06-26-2023 Erythrocyte distribution width (RBC) [Entitic vol] 42.7 fL 35.1-43.9 [facility] Erythrocyte distribution width (RBC) [Ratio] 13.7 % 11.6-14.6 [facility] Immature granulocytes/100 WBC (Bld) 0.700 % 0.0-0.9 [facility] Comment on above: IG% - Immature Granu locytes (promyelocytes, myelocytes and metamyelocytes) > 1% indicates that a LEFT SHIFT is Present. MCH (RBC) [Entitic mass] 26.9 pg 27.0-32.0 [facility] Nucleated RBC/100 WBC (Bld) [Ratio] 0 % 0-5 [facility] MCHC Auto (RBC) [Mass/Vol]Or dered By: Taiwo Chen on 06-26-2023 MCHC (RBC) [Mass/Vol] 31.8 g/dL 32-36 [facility] No Panel InformationOrdered By: Taiwo Chen on 06-26-2023 Estimated Creatinine Clearance Calc 86.71 ml/min [facility] Estimated GFR (MDRD) Amer 97 mL/min >60 [facility] Comment on above: GFR Calc Estimated GFR (MDRD) Non-Af Amer 80 mL/min >60 [facility] Comment on above: Non- GFR Calc 26.9 pg 27.0-32.0 [facility] 13.7 % 11.6-14.6 [facility] 42.7 fl 35.1-43.9 [facility] 0.700 % 0.0-0.9 [facility] 0 % 0-5 [facility] 80 mL/min >60 [facility] 97 mL/min >60 [facility] 86.71 ml/min [facility] 11.4 RATIO 10-20 [facility] 5.0 g/dL 2.2-4.2 [facility] 135 U/L 45-117 [facility] 15 U/L 13-56 [facility] 26.0 mmol/L 21.0-32.0 [facility] Platelets bldOrdered By: Liss Chen on 06-26-2023 Platelets (Bld) [#/Vol] 464 10*3/uL 150-450 [facility] Serum or plasma albumin hussein urement (mass/volume)Ordered By: Taiwo Chen on 06-26-2023 Albumin [Mass/Vol] 3.4 g/dL 3.2-5.0 [facility] Serum or plasma albumin/glob ulin mass ratioOrdered By: Taiwo Chen on 06-26-2023 Albumin/Globulin [Mass ratio] 0.7 {ratio} 0.9-2.4 [facility] Serum or plasma calcium hussein urement (mass/volume)Ordered By: Taiwo Chen on 06-26-2023 Calcium [Mass/Vol] 9.5 mg/dL 8.5-10.1 [facility] Serum or plasma creatinine m easurement [...] 06-26-2023 Urea nitrogen [Mass/Vol] 10 mg/dL 7-18 [facility] Thin prep Papanicolaou smear with manual screeningOrdered By: Taiwo Chen on 06-26-2023 Thin prep Papanicolaou smear with manual screening 8 U/L 15-37 [facility] Thin prep Papanicolaou smear with manual screening 8 5-15 [facility] Absolute lymphocyte countOrd ered By: Tesfaye Mitchell on 06-25-2023 Lymphocytes Auto (Unsp spec) [#/Vol] 2.74 10*3/uL 0.83-4.51 [facility] Basophil percentageOrdered B y: Tesfaye Mitchell on 06-25-2023 Basophil percentage 259 mg/dL 74-106 [facility] Basophil percentage 8.7 g/dL 6.4-8.2 [facility] Basophil percentage 0.40 mg/dL 0.20-1.00 [facility] Basophil percentage 137 mmol/L 136-145 [facility] Basophil percentage 4.0 mmol/L 3.5-5.1 [facility] Basophil percentage 103 mmol/L 98-107 [facility] Basophils (Bld) [#/Vol] 11.7 10*3/uL 4.4-11.0 [facility] Basophils (Bld) [#/Vol] 8.5 10*3/uL 2.0-7.7 [facility] Basophils/100 WBC (Bld) 0.4 % 0-1 [facility] Basophils/100 WBC (Bld) 72.6 % 47-70 [facility] Basophils/100 WBC (Bld) 0.0 % 0-5 [facility] Bilirubin [Mass/Vol] 0.40 mg/dL 0.20-1.00 [facility] Comment on above: For patients on eltr ombopag therapy, use of Dimension [place] TBIL is not recommended. Chloride [Moles/Vol] 103 mmol/L 98-107 [facility] Eosinophils/100 WBC (Bld) 0.0 % 0-5 [facility] Glucose [Mass/Vol] 259 mg/dL 74-106 [facility] Comment on above: Glucose result great er than or equal to 200 mg/dLsuggests DIABETES MELLITUS per A.D.A. criteria. Neutrophils (Bld) [#/Vol] 8.5 10*3/uL 2.0-7.7 [facility] Neutrophils/100 WBC (Bld) 72.6 % 47-70 [facility] Potassium [Moles/Vol] 4.0 mmol/L 3.5-5.1 [facility] Protein [Mass/Vol] 8.7 g/dL 6.4-8.2 [facility] Sodium [Moles/Vol] 137 mmol/L 136-145 [facility] WBC (Bld) [#/Vol] 11.7 10*3/uL 4.4-11.0 [facility] Basophil percentage 0-5 SEEN /hpf 0-5 [facility] Bilirubin Test strip Ql (U)O rdered By: Tesfaye Mitchell on 06-25-2023 Bilirubin Ql (U) Negative Negative [facility] Blood erythrocytes count (nu mber/volume)Ordered By: Tesfaye Mitchell on 06-25-2023 RBC (Bld) [#/Vol] 4.53 10*6/uL 4.2-5.4 [facility] Blood hemoglobin measurement (mass/volume)Ordered By: Tesfaye Mitchell on 06-25-2023 Hemoglobin (Bld) [Mass/Vol] 12.0 g/dL 12.0-15.0 [facility] Blood lymphocytes/100 leukoc ytesOrdered By: Tesfaye Mitchell on 06-25-2023 Lymphocytes/100 WBC (Bld) 23.5 % 19-41 [facility] Blood monocytes/100 leukocyt esOrdered By: Tesfaye Mitchell on 06-25-2023 Monocytes/100 WBC (Bld) 2.9 % 0-10 [facility] Blood platelet mean volumeOr dered By: Tesfaye Mitchell on 06-25-2023 Platelet mean volume (Bld) [Entitic vol] 9.1 fL 6.2-12.0 [facility] Determination of erythrocyte mean corpuscular volume (MCV)Ordered By: Tesfaye Mitchell on 06-25-2023 MCV (RBC) [Entitic vol] 84.3 fL 81-99 [facility] Hematocrit Auto (Bld) [Volum e fraction]Ordered By: Tesfaye Mitchell on 06-25-2023 Hematocrit (Bld) [Volume fraction] 38.2 % 37-47 [facility] Ketones Test strip Ql (U)Ord ered By: Tesfaye Mitchell on 06-25-2023 Ketones Ql (U) 15 mg/dl Negative [facility] - Chemistry and C hemistry - challengeOrdered By: Tesfaye Mitchell on 06-25-2023 ALP [Catalytic activity/Vol] 156 U/L 45-117 [facility] ALT [Catalytic activity/Vol] 15 U/L 13-56 [facility] CO2 [Moles/Vol] 24.0 mmol/L 21.0-32.0 [facility] Globulin (S) [Mass/Vol] 5.4 g/dL 2.2-4.2 [facility] Lipase [Catalytic activity/Vol] 32 U/L 13-75 [facility] Comment on above: Please note:LIPASE r evised reference range effective 22. New Lipase methodology. Expected to produce lower values than the previous assay method. NEW Reference Range: 13 - 75 U/L Urea nitrogen/Creatinine [Mass ratio] 15.7 mg/mg 10-20 [facility] - Drug toxicology Ordered By: Tesfaye Mitchell on 06-25-2023 Amphetamines Ql (U) Negative <1000 ng/mL [facility] Benzodiazepines Ql (U) Negative < 200 ng/mL [facility] Cannabinoids Screen Ql (U) Negative < 50 ng/mL [facility] Cocaine Ql (U) Negative < 300 ng/mL [facility] Opiates Ql (U) Negative < 300 ng/mL [facility] - Hematology and Cell countsOrdered By: Tesfaye Mitchell on 06-25-2023 Erythrocyte distribution width (RBC) [Entitic vol] 42.4 fL 35.1-43.9 [facility] Erythrocyte distribution width (RBC) [Ratio] 13.7 % 11.6-14.6 [facility] Immature granulocytes/100 WBC (Bld) 0.600 % 0.0-0.9 [facility] Comment on above: IG% - Immature Granu locytes (promyelocytes, myelocytes and metamyelocytes) > 1% indicates that a LEFT SHIFT is Present. MCH (RBC) [Entitic mass] 26.5 pg 27.0-32.0 [facility] Nucleated RBC/100 WBC (Bld) [Ratio] 0 % 0-5 [facility] MCHC Auto (RBC) [Mass/Vol]Or dered By: Tesfaye Mitchell on 06-25-2023 MCHC (RBC) [Mass/Vol] 31.4 g/dL 32-36 [facility] Mucus LM Ql (Urine sed)Order ed By: Tesfaye Mitchell on 06-25-2023 Mucus Ql (Urine sed) 0 SEEN /hpf [facility] Nitrite Test strip Ql (U)Ord ered By: Tesfaye Mitchell on 06-25-2023 Nitrite Ql (U) Negative Negative [facility] No Panel InformationOrdered By: Tesfaye Mitchell on 06-25-2023 Estimated Creatinine Clearance Calc 91.94 ml/min [facility] Estimated GFR (MDRD) Amer 103 mL/min >60 [facility] Comment on above: GFR Calc Estimated GFR (MDRD) Non-Af Amer 85 mL/min >60 [facility] Comment on above: Non- GFR Calc 26.5 pg 27.0-32.0 [facility] 13.7 % 11.6-14.6 [facility] 42.4 fl 35.1-43.9 [facility] 0.600 % 0.0-0.9 [facility] 0 % 0-5 [facility] 85 mL/min >60 [facility] 103 mL/min >60 [facility] 91.94 ml/min [facility] 15.7 RATIO 10-20 [facility] 5.4 g/dL 2.2-4.2 [facility] 32 U/L 13-75 [facility] 156 U/L 45-117 [facility] 15 U/L 13-56 [facility] 24.0 mmol/L 21.0-32.0 [facility] MDMA (Ecstasy) Screen Positive < 500 ng/mL [facility] Urine Barbiturates Screen Negative < 200 ng/mL [facility] Urine Drug Screen Comment [facility] Comment on above: CONFIRMATORY TESTING FOR [...] Urine Methadone Screen Negative < 300 ng/mL [facility] Negative < 50 ng/mL [facility] Positive < 500 ng/mL [facility] Platelets bldOrdered By: Mauro eliel Paula on 06-25-2023 Platelets (Bld) [#/Vol] 497 10*3/uL 150-450 [facility] Protein Test strip Ql (U)Ord ered By: Tesfaye Mitchell on 06-25-2023 Protein Ql (U) 30 mg/dl Negative [facility] Serum or plasma albumin hussein urement (mass/volume)Ordered By: Tesfaye Mitchell on 06-25-2023 Albumin [Mass/Vol] 3.3 g/dL 3.2-5.0 [facility] Serum or plasma albumin/glob ulin mass ratioOrdered By: Tesfaye Mitchell on 06-25-2023 Albumin/Globulin [Mass ratio] 0.6 {ratio} 0.9-2.4 [facility] Serum or plasma calcium hussein urement (mass/volume)Ordered By: Tesfaye Mitchell on 06-25-2023 Calcium [Mass/Vol] 9.6 mg/dL 8.5-10.1 [facility] Serum or plasma creatinine m easurement [...] 06-25-2023 Urea nitrogen [Mass/Vol] 13 mg/dL 7-18 [facility] Squamous epithelial cells de tection in urine sediment by light microscopyOrdered By: Tesfaye Mitchell on 06-25-2023 Epithelial cells.squamous LM Ql (Urine sed) 5-10 SEEN /hpf 5-10 [facility] Thin prep Papanicolaou smear with manual screeningOrdered By: Tesfaye Mitchell on 06-25-2023 Thin prep Papanicolaou smear with manual screening 14 U/L 15-37 [facility] Thin prep Papanicolaou smear with manual screening 10 5-15 [facility] Urine blood detectionOrdered By: Tesfaye Mitchell on 06-25-2023 RBC Ql (U) 250 /ul Negative [facility] RBC Ql (U) > 100 SEEN /hpf 0-5 [facility] Urine clarityOrdered By: Mauro Mitchell on 06-25-2023 Clarity (U) Sl. Cloudy Clear [facility] Urine color determinationOrd ered By: Tesfaye Mitchell on 06-25-2023 Color (U) Yellow Yellow [facility] Urine glucose detectionOrder ed By: Tesfaye Mitchell on 06-25-2023 Glucose Ql (U) 250 mg/dl Normal [facility] Urine leukocyte esterase det ection by dipstickOrdered By: Tesfaye Mitchell on 06-25-2023 Leukocyte esterase Test strip Ql (U) 25 /ul Negative [facility] Urine pHOrdered By: Tesfaye figueroa on 06-25-2023 pH (U) 7.0 [pH] 5.0 - 8.0 [facility] Urine phencyclidine (PCP) de tectionOrdered By: Tesfaye Mitchell on 06-25-2023 Phencyclidine Ql (U) Negative < 25 ng/mL [facility] Urine sediment bacteria coun t by microscopy (number/high power field)Ordered By: Tesfaye Mitchell on 06-25-2023 Bacteria LM.HPF (Urine sed) [#/Area] 0 /[HPF] None Seen [facility] Urine specific gravity measu rementOrdered By: Tesfaye Mitchell on 06-25-2023 Specific gravity (U) [Rel density] 1.010 1.002-1.030 [facility] Urobilinogen Auto test strip Ql (U)Ordered By: Tesfaye Mitchell on 06-25-2023 Urobilinogen Ql (U) Normal mg/dl Normal [facility] Anaerobic cultureOrdered By: Abdirizak Forrest on 05-18-2023 Bacteria identified Anaer cx Nom (Unsp spec) No anaerobic bacteria isolated. [facility] Bacteria identified Cx Nom ( Wound)Ordered By: Abdirizak Forrest on 05-18-2023 Wound Culture Meth. resistant Stap h. aureus [facility] Routine wound culture Meth. resistant St aph. aureus [facility] Fungus cultureOrdered By: Neva Forrest on 05-18-2023 Fungus identified Cx Nom (Unsp spec) [facility] Gram stain for investigation of transfusion reactionOrdered By: Abdirizak Forrest on 05-18-2023 Microscopic observation Gram stain Nom (Unsp spec) [facility] Glucose Glucometer (BldC) [M ass/Vol]Ordered By: Rickey Gifford on 05-09-2023 Glucose [Mass/Vol] 157 mg/dL 74-106 [facility] Comment on above: MANAGEMENT OF PATIEN T CARE PER NURSING PROTOCOL Basophil percentageOrdered B y: Rickey Gifford on 05-07-2023 Basophil percentage 161 mg/dL 74-106 [facility] Basophil percentage 138 mmol/L 136-145 [facility] Basophil percentage 4.0 mmol/L 3.5-5.1 [facility] Basophil percentage 108 mmol/L 98-107 [facility] Chloride [Moles/Vol] 108 mmol/L 98-107 [facility] Glucose [Mass/Vol] 161 mg/dL 74-106 [facility] Comment on above: Fasting Glucose resu lt greater than or equal to 126 mg/dL suggests DIABETES MELLITUS per A.D.A. criteria. Potassium [Moles/Vol] 4.0 mmol/L 3.5-5.1 [facility] Sodium [Moles/Vol] 138 mmol/L 136-145 [facility] Laboratory - Chemistry and C hemistry - challengeOrdered By: Rickey Gfiford on 05-07-2023 CO2 [Moles/Vol] 26.0 mmol/L 21.0-32.0 [facility] Urea nitrogen/Creatinine [Mass ratio] 17.1 mg/mg 04-30 [facility] No Panel InformationOrdered By: Rickey Gifford on 05-07-2023 Estimated Creatinine Clearance Calc 131.56 ml/min [facility] Estimated GFR (MDRD) Amer 154 mL/min >60 [facility] Comment on above: GFR Calc Estimated GFR (MDRD) Non-Af Amer 127 mL/min >60 [facility] Comment on above: Non- GFR Calc 127 mL/min >60 [facility] 154 mL/min >60 [facility] 131.56 ml/min [facility] 17.1 RATIO 04-30 [facility] 26.0 mmol/L 21.0-32.0 [facility] Serum or plasma calcium hussein urement (mass/volume)Ordered By: Rickey Gifford on 05-07-2023 Calcium [Mass/Vol] 8.4 mg/dL 8.5-10.1 [facility] Serum or plasma creatinine m easurement [...] 05-07-2023 Urea nitrogen [Mass/Vol] 10 mg/dL 7-18 [facility] Thin prep Papanicolaou smear with manual screeningOrdered By: Rickey Gifford on 05-07-2023 Thin prep Papanicolaou smear with manual screening 4 5-15 [facility] Absolute lymphocyte countOrd ered By: Rickey Gifford on 05-06-2023 Lymphocytes Auto (Unsp spec) [#/Vol] 2.89 10*3/uL 0.83-4.51 [facility] Basophil percentageOrdered B y: Rickey Gifford on 05-06-2023 Basophils (Bld) [#/Vol] 5.8 10*3/uL 4.4-11.0 [facility] Basophils (Bld) [#/Vol] 2.4 10*3/uL 2.0-7.7 [facility] Basophils/100 WBC (Bld) 40.5 % 47-70 [facility] Basophils/100 WBC (Bld) 0.3 % 0-5 [facility] Basophils/100 WBC (Bld) 0.5 % 0-1 [facility] Eosinophils/100 WBC (Bld) 0.3 % 0-5 [facility] Neutrophils (Bld) [#/Vol] 2.4 10*3/uL 2.0-7.7 [facility] Neutrophils/100 WBC (Bld) 40.5 % 47-70 [facility] WBC (Bld) [#/Vol] 5.8 10*3/uL 4.4-11.0 [facility] Blood erythrocytes count (nu mber/volume)Ordered By: Rickey Gifford on 05-06-2023 RBC (Bld) [#/Vol] 3.54 10*6/uL 4.2-5.4 [facility] Blood hemoglobin measurement (mass/volume)Ordered By: Rickey Gifford on 05-06-2023 Hemoglobin (Bld) [Mass/Vol] 10.1 g/dL 12.0-15.0 [facility] Blood lymphocytes/100 leukoc ytesOrdered By: Rickey Gifford on 05-06-2023 Lymphocytes/100 WBC (Bld) 49.6 % 19-41 [facility] Blood monocytes/100 leukocyt esOrdered By: Rickey Gifford on 05-06-2023 Monocytes/100 WBC (Bld) 8.4 % 0-10 [facility] Blood platelet mean volumeOr dered By: Rickey Gifford on 05-06-2023 Platelet mean volume (Bld) [Entitic vol] 9.4 fL 6.2-12.0 [facility] Determination of erythrocyte mean corpuscular volume (MCV)Ordered By: Rickey Gifford on 05-06-2023 MCV (RBC) [Entitic vol] 92.7 fL 81-99 [facility] Hematocrit Auto (Bld) [Volum e fraction]Ordered By: Rickey Gifford on 05-06-2023 Hematocrit (Bld) [Volume fraction] 32.8 % 37-47 [facility] Laboratory - Hematology and Cell countsOrdered By: Rickey Gifford on 05-06-2023 Erythrocyte distribution width (RBC) [Entitic vol] 54.6 fL 35.1-43.9 [facility] Erythrocyte distribution width (RBC) [Ratio] 15.9 % 11.6-14.6 [facility] Immature granulocytes/100 WBC (Bld) 0.700 % 0.0-0.9 [facility] Comment on above: IG% - Immature Granu locytes (promyelocytes, myelocytes and metamyelocytes) > 1% indicates that a LEFT SHIFT is Present. MCH (RBC) [Entitic mass] 28.5 pg 27.0-32.0 [facility] Nucleated RBC/100 WBC (Bld) [Ratio] 0 % 0-5 [facility] MCHC Auto (RBC) [Mass/Vol]Or dered By: Rickey Gifford on 05-06-2023 MCHC (RBC) [Mass/Vol] 30.8 g/dL 32-36 [facility] No Panel InformationOrdered By: Rickey Gifford on 05-06-2023 28.5 pg 27.0-32.0 [facility] 15.9 % 11.6-14.6 [facility] 54.6 fl 35.1-43.9 [facility] 0.700 % 0.0-0.9 [facility] 0 % 0-5 [facility] Platelets bldOrdered By: Ivy Gifford on 05-06-2023 Platelets (Bld) [#/Vol] 317 10*3/uL 150-450 [facility] Serum or plasma trough vanco mycin levelOrdered By: Rickey Gifford on 05-05-2023 Vancomycin trough [Mass/Vol] 15.1 ug/mL 5.0-15.0 [facility] Comment on above: VANCOMYCIN STANDARED DRUG THERAPY TROUGH LEVEL: 5.0 - 15.0 mg/L VANCOMYCIN HIGH INTENSITY THERAPY TROUGH LEVEL: 15.0 - 20.0 mg/L High Intensity therapy recommended for serious lifethreatening infections include:- Davjfdhshk-Zaagcspgyupo-Yfvytxymw (Ventilator/Healtcare Associated)-Sepsis PLEASE CONTACT PHARMACY SERVICES (#[id number]) FOR INTERPRETATIONOF RESULTS. Absolute lymphocyte countOrd ered By: Javy Doss on 05-04-2023 Lymphocytes Auto (Unsp spec) [#/Vol] 1.65 10*3/uL 0.83-4.51 [facility] Bacteria identified Anaer cx Nom (Unsp spec)Ordered By: Abdirizak Forrest on 05-04-2023 Anaerobic Culture Bacteroides fragilis [facility] Bacteria identified Cx Nom ( Wound)Ordered By: Abdirizak Forrest on 05-04-2023 Wound Culture Streptococcus dysgalactiae dys [facility] Routine wound culture Streptococcus dysgalactiae dys [facility] Basophil percentageOrdered B y: Javy Doss on 05-04-2023 Basophil percentage 207 mg/dL 74-106 [facility] Basophil percentage 133 mmol/L 136-145 [facility] Basophil percentage 3.8 mmol/L 3.5-5.1 [facility] Basophil percentage 102 mmol/L 98-107 [facility] Basophil percentage 1.9 mmol/L 0.4-2.0 [facility] Basophils (Bld) [#/Vol] 11.1 10*3/uL 4.4-11.0 [facility] Basophils (Bld) [#/Vol] 8.1 10*3/uL 2.0-7.7 [facility] Basophils/100 WBC (Bld) 73.2 % 47-70 [facility] Basophils/100 WBC (Bld) 0.0 % 0-5 [facility] Basophils/100 WBC (Bld) 0.4 % 0-1 [facility] Lactate [Moles/Vol] 1.9 mmol/L 0.4-2.0 [facility] Blood erythrocytes count (nu mber/volume)Ordered By: Javy Doss on 05-04-2023 RBC (Bld) [#/Vol] 3.68 10*6/uL 4.2-5.4 [facility] Blood hemoglobin measurement (mass/volume)Ordered By: Javy Doss on 05-04-2023 Hemoglobin (Bld) [Mass/Vol] 10.5 g/dL 12.0-15.0 [facility] Blood lymphocytes/100 leukoc ytesOrdered By: Javy Doss on 05-04-2023 Lymphocytes/100 WBC (Bld) 14.9 % 19-41 [facility] Blood monocytes/100 leukocyt esOrdered By: Javy Doss on 05-04-2023 Monocytes/100 WBC (Bld) 10.2 % 0-10 [facility] Blood platelet mean volumeOr dered By: Javy Doss on 05-04-2023 Platelet mean volume (Bld) [Entitic vol] 9.2 fL 6.2-12.0 [facility] Determination of erythrocyte mean corpuscular volume (MCV)Ordered By: Javy Doss on 05-04-2023 MCV (RBC) [Entitic vol] 89.1 fL 81-99 [facility] Erythrocyte sedimentation ra teOrdered By: Abdirizak Forrest on 05-04-2023 ESR (Bld) [Velocity] 88 mm/h 0-30 [facility] Fungus cultureOrdered By: Neva Forrest on 05-04-2023 Fungus identified Cx Nom (Unsp spec) [facility] Fungus stainOrdered By: Jonas Forrest on 05-04-2023 Fungus identified Fungus stain Nom (Unsp spec) [facility] Gram stain for investigation of transfusion reactionOrdered By: Abdirizak Forrest on 05-04-2023 Microscopic observation Gram stain Nom (Unsp spec) [facility] Microscopic observation Gram stain Nom (Unsp spec) [facility] Hematocrit Auto (Bld) [Volum e fraction]Ordered By: Javy Doss on 05-04-2023 Hematocrit (Bld) [Volume fraction] 32.8 % 37-47 [facility] Laboratory - Chemistry and C hemistry - challengeOrdered By: Ronald Hilario on 05-04-2023 HCG ( test) Ql (U) Negative [facility] Comment on above: Very dilute urine sp ecimens, as indicated by a low specificgravity, may not contain product sales representative levels of hCG. If is still suspected, a first morning urinespecimen should be collected 48 hours later and tested. Laboratory - Microbiology an d Antimicrobial susceptibilityOrdered By: Javy Doss on 05-04-2023 Bacteria identified Cx Nom (Bld) No growth in 5 days. [facility] MCHC Auto (RBC) [Mass/Vol]Or dered By: Javy Doss on 05-04-2023 MCHC (RBC) [Mass/Vol] 32.0 g/dL 32-36 [facility] No Panel InformationOrdered By: Ronald Hilario on 05-04-2023 Negative [facility] No Panel InformationOrdered By: Javy Doss on 05-04-2023 No growth in 5 days. [facility] 28.5 pg 27.0-32.0 [facility] 15.9 % 11.6-14.6 [facility] 52.3 fl 35.1-43.9 [facility] 1.300 % 0.0-0.9 [facility] 0 % 0-5 [facility] 100 mL/min >60 [facility] 121 mL/min >60 [facility] 105.98 ml/min [facility] 12.5 RATIO 10-20 [facility] 27.0 mmol/L 21.0-32.0 [facility] Platelets bldOrdered By: Haylee Doss on 05-04-2023 Platelets (Bld) [#/Vol] 333 10*3/uL 150-450 [facility] Serum or plasma C reactive p rotein measurement (mass/volume)Ordered By: Abdirizak Forrest on 05-04-2023 CRP [Mass/Vol] 117.00 mg/L 0.0-3.0 [facility] Comment on above: C-Reactive Protein ( CRP) provides useful information for thediagnosis, therapy and monitoring of inflammatory processesand associated diseases. For the evaluation of Relative Riskfor Cardiovascular Disease, a High Sensitivity CRP (HSCRP)should be ordered. Serum or plasma calcium hussein urement (mass/volume)Ordered By: Javy Doss on 05-04-2023 Calcium [Mass/Vol] 8.7 mg/dL 8.5-10.1 [facility] Serum or plasma creatinine m easurement (mass/volume)Ordered By: Javy Doss on 05-04-2023 Creatinine [Mass/Vol] 0.72 mg/dL 0.55-1.02 [facility] Serum or plasma urea nitroge n measurement (mass/volume)Ordered By: Javy Doss on 05-04-2023 Urea nitrogen [Mass/Vol] 9 mg/dL 7-18 [facility] Thin prep Papanicolaou smear with manual screeningOrdered By: Javy Doss on 05-04-2023 Thin prep Papanicolaou smear with manual screening 4 5-15 [facility] Whole blood hemoglobin A1c/t otal hemoglobin ratio (mass fraction)Ordered By: Abdirizak Forrest on 05-04-2023 HbA1c (Bld) [Mass fraction] 7.2 % 3.8-5.6 [facility] Comment on above: Normal < 5.7 % Predi abetic 5.7 - 6.4 % Diabetic >or= 6.5 % Please note range changes. Absolute lymphocyte countOrd ered By: Deann Guerrero on 04-14-2023 Lymphocytes Auto (Unsp spec) [#/Vol] 3.05 10*3/uL 0.83-4.51 [facility] Basophil percentageOrdered B y: Deann Guerrero on 04-14-2023 Basophil percentage 179 mg/dL 74-106 [facility] Basophil percentage 8.2 g/dL 6.4-8.2 [facility] Basophil percentage 0.60 mg/dL 0.20-1.00 [facility] Basophil percentage 135 mmol/L 136-145 [facility] Basophil percentage 3.6 mmol/L 3.5-5.1 [facility] Basophil percentage 103 mmol/L 98-107 [facility] Basophils (Bld) [#/Vol] 7.8 10*3/uL 4.4-11.0 [facility] Basophils (Bld) [#/Vol] 4.1 10*3/uL 2.0-7.7 [facility] Basophils/100 WBC (Bld) 52.8 % 47-70 [facility] Basophils/100 WBC (Bld) 0.3 % 0-5 [facility] Basophils/100 WBC (Bld) 0.5 % 0-1 [facility] Bilirubin [Mass/Vol] 0.60 mg/dL 0.20-1.00 [facility] Comment on above: For patients on eltr ombopag therapy, use of Dimension [place] TBIL is not recommended. Chloride [Moles/Vol] 103 mmol/L 98-107 [facility] Eosinophils/100 WBC (Bld) 0.3 % 0-5 [facility] Glucose [Mass/Vol] 179 mg/dL 74-106 [facility] Comment on above: Fasting Glucose resu lt greater than or equal to 126 mg/dL suggests DIABETES MELLITUS per A.D.A. criteria. Neutrophils (Bld) [#/Vol] 4.1 10*3/uL 2.0-7.7 [facility] Neutrophils/100 WBC (Bld) 52.8 % 47-70 [facility] Potassium [Moles/Vol] 3.6 mmol/L 3.5-5.1 [facility] Protein [Mass/Vol] 8.2 g/dL 6.4-8.2 [facility] Sodium [Moles/Vol] 135 mmol/L 136-145 [facility] WBC (Bld) [#/Vol] 7.8 10*3/uL 4.4-11.0 [facility] Blood erythrocytes count (nu mber/volume)Ordered By: Deann Guerrero on 04-14-2023 RBC (Bld) [#/Vol] 4.57 10*6/uL 4.2-5.4 [facility] Blood hemoglobin measurement (mass/volume)Ordered By: Deann Guerrero on 04-14-2023 Hemoglobin (Bld) [Mass/Vol] 12.8 g/dL 12.0-15.0 [facility] Blood lymphocytes/100 leukoc ytesOrdered By: Deann Guerrero on 04-14-2023 Lymphocytes/100 WBC (Bld) 39.3 % 19-41 [facility] Blood monocytes/100 leukocyt esOrdered By: Deann Guerrero on 04-14-2023 Monocytes/100 WBC (Bld) 6.1 % 0-10 [facility] Blood platelet mean volumeOr dered By: Deann Guerrero on 04-14-2023 Platelet mean volume (Bld) [Entitic vol] 8.3 fL 6.2-12.0 [facility] Determination of erythrocyte mean corpuscular volume (MCV)Ordered By: Deann Guerrero on 04-14-2023 MCV (RBC) [Entitic vol] 87.7 fL 81-99 [facility] Direct bilirubinOrdered By: Deann Guerrero on 04-14-2023 Bilirubin.direct [Mass/Vol] 0.16 mg/dL 0.00-0.30 [facility] Hematocrit Auto (Bld) [Volum e fraction]Ordered By: Deann Guerrero on 04-14-2023 Hematocrit (Bld) [Volume fraction] 40.1 % 37-47 [facility] Laboratory - Chemistry and C hemistry - challengeOrdered By: Deann Guerrero on 04-14-2023 ALP [Catalytic activity/Vol] 111 U/L 45-117 [facility] ALT [Catalytic activity/Vol] 23 U/L 13-56 [facility] CO2 [Moles/Vol] 25.0 mmol/L 21.0-32.0 [facility] Globulin (S) [Mass/Vol] 5.0 g/dL 2.2-4.2 [facility] Lipase [Catalytic activity/Vol] 80 U/L 13-75 [facility] Comment on above: Please note:LIPASE r evised reference range effective 22. New Lipase methodology. Expected to produce lower values than the previous assay method. NEW Reference Range: 13 - 75 U/L Urea nitrogen/Creatinine [Mass ratio] 9.6 mg/mg 10-20 [facility] Laboratory - Hematology and Cell countsOrdered By: Deann Guerrero on 04-14-2023 Erythrocyte distribution width (RBC) [Entitic vol] 48.6 fL 35.1-43.9 [facility] Erythrocyte distribution width (RBC) [Ratio] 16.4 % 11.6-14.6 [facility] Immature granulocytes/100 WBC (Bld) 1.000 % 0.0-0.9 [facility] Comment on above: IG% - Immature Granu locytes (promyelocytes, myelocytes and metamyelocytes) > 1% indicates that a LEFT SHIFT is Present. MCH (RBC) [Entitic mass] 28.0 pg 27.0-32.0 [facility] Nucleated RBC/100 WBC (Bld) [Ratio] 0 % 0-5 [facility] MCHC Auto (RBC) [Mass/Vol]Or dered By: Deann Guerrero on 04-14-2023 MCHC (RBC) [Mass/Vol] 31.9 g/dL 32-36 [facility] No Panel InformationOrdered By: Deann Guerrero on 04-14-2023 Estimated Creatinine Clearance Calc 73.37 ml/min [facility] Estimated GFR (MDRD) Amer 79 mL/min >60 [facility] Comment on above: GFR Calc Estimated GFR (MDRD) Non-Af Amer 66 mL/min >60 [facility] Comment on above: Non- GFR Calc 28.0 pg 27.0-32.0 [facility] 16.4 % 11.6-14.6 [facility] 48.6 fl 35.1-43.9 [facility] 1.000 % 0.0-0.9 [facility] 0 % 0-5 [facility] 66 mL/min >60 [facility] 79 mL/min >60 [facility] 73.37 ml/min [facility] 9.6 RATIO 10-20 [facility] 5.0 g/dL 2.2-4.2 [facility] 80 U/L 13-75 [facility] 111 U/L 45-117 [facility] 23 U/L 13-56 [facility] 25.0 mmol/L 21.0-32.0 [facility] Platelets bldOrdered By: Sulema Guerrero on 04-14-2023 Platelets (Bld) [#/Vol] 565 10*3/uL 150-450 [facility] Serum or plasma albumin hussein urement (mass/volume)Ordered By: Deann Guerrero on 04-14-2023 Albumin [Mass/Vol] 3.2 g/dL 3.2-5.0 [facility] Serum or plasma calcium hussein urement (mass/volume)Ordered By: Deann Guerrero on 04-14-2023 Calcium [Mass/Vol] 9.5 mg/dL 8.5-10.1 [facility] Serum or plasma creatinine m easurement [...] 04-14-2023 Urea nitrogen [Mass/Vol] 10 mg/dL 7-18 [facility] Thin prep Papanicolaou smear with manual screeningOrdered By: Deann Guerrero on 04-14-2023 Thin prep Papanicolaou smear with manual screening 13 U/L 15-37 [facility] Thin prep Papanicolaou smear with manual screening 7 5-15 [facility] Absolute lymphocyte countOrd ered By: Poli Barfield on 04-13-2023 Lymphocytes Auto (Unsp spec) [#/Vol] 3.04 10*3/uL 0.83-4.51 [facility] Basophil percentageOrdered B y: Poli Barfield on 04-13-2023 Basophil percentage 280 mg/dL 74-106 [facility] Basophil percentage 7.8 g/dL 6.4-8.2 [facility] Basophil percentage 0.60 mg/dL 0.20-1.00 [facility] Basophil percentage 132 mmol/L 136-145 [facility] Basophil percentage 4.0 mmol/L 3.5-5.1 [facility] Basophil percentage 100 mmol/L 98-107 [facility] Basophils (Bld) [#/Vol] 8.7 10*3/uL 4.4-11.0 [facility] Basophils (Bld) [#/Vol] 5.1 10*3/uL 2.0-7.7 [facility] Basophils/100 WBC (Bld) 58.8 % 47-70 [facility] Basophils/100 WBC (Bld) 0.1 % 0-5 [facility] Basophils/100 WBC (Bld) 0.6 % 0-1 [facility] Bilirubin [Mass/Vol] 0.60 mg/dL 0.20-1.00 [facility] Comment on above: For patients on eltr ombopag therapy, use of Dimension [place] TBIL is not recommended. Chloride [Moles/Vol] 100 mmol/L 98-107 [facility] Eosinophils/100 WBC (Bld) 0.1 % 0-5 [facility] Glucose [Mass/Vol] 280 mg/dL 74-106 [facility] Comment on above: Glucose result great er than or equal to 200 mg/dLsuggests DIABETES MELLITUS per A.D.A. criteria. Neutrophils (Bld) [#/Vol] 5.1 10*3/uL 2.0-7.7 [facility] Neutrophils/100 WBC (Bld) 58.8 % 47-70 [facility] Potassium [Moles/Vol] 4.0 mmol/L 3.5-5.1 [facility] Protein [Mass/Vol] 7.8 g/dL 6.4-8.2 [facility] Sodium [Moles/Vol] 132 mmol/L 136-145 [facility] WBC (Bld) [#/Vol] 8.7 10*3/uL 4.4-11.0 [facility] Beta hCG serum qualOrdered B y: Poli Barfield on 04-13-2023 Beta HCG ( test) Ql Negative [facility] Blood erythrocytes count (nu mber/volume)Ordered By: Poli Barfield on 04-13-2023 RBC (Bld) [#/Vol] 4.42 10*6/uL 4.2-5.4 [facility] Blood hemoglobin measurement (mass/volume)Ordered By: Poli Barfield on 04-13-2023 Hemoglobin (Bld) [Mass/Vol] 12.6 g/dL 12.0-15.0 [facility] Blood lymphocytes/100 leukoc ytesOrdered By: Poli Barfield on 04-13-2023 Lymphocytes/100 WBC (Bld) 35.1 % 19-41 [facility] Blood monocytes/100 leukocyt esOrdered By: Poli Barfield on 04-13-2023 Monocytes/100 WBC (Bld) 4.6 % 0-10 [facility] Blood platelet mean volumeOr dered By: Poli Barfield on 04-13-2023 Platelet mean volume (Bld) [Entitic vol] 8.3 fL 6.2-12.0 [facility] Determination of erythrocyte mean corpuscular volume (MCV)Ordered By: Poli Barfield on 04-13-2023 MCV (RBC) [Entitic vol] 87.3 fL 81-99 [facility] Hematocrit Auto (Bld) [Volum e fraction]Ordered By: Poli Barfield on 04-13-2023 Hematocrit (Bld) [Volume fraction] 38.6 % 37-47 [facility] - Chemistry and C hemistry - challengeOrdered By: Poli Barfield on 04-13-2023 ALP [Catalytic activity/Vol] 114 U/L 45-117 [facility] ALT [Catalytic activity/Vol] 23 U/L 13-56 [facility] CO2 [Moles/Vol] 24.0 mmol/L 21.0-32.0 [facility] Globulin (S) [Mass/Vol] 4.8 g/dL 2.2-4.2 [facility] Lipase [Catalytic activity/Vol] 98 U/L 13-75 [facility] Comment on above: Please note:LIPASE r evised reference range effective 22. New Lipase methodology. Expected to produce lower values than the previous assay method. NEW Reference Range: 13 - 75 U/L Urea nitrogen/Creatinine [Mass ratio] 9.4 mg/mg 04-30 [facility] - Hematology and Cell countsOrdered By: Poli Barfield on 04-13-2023 Erythrocyte distribution width (RBC) [Entitic vol] 47.7 fL 35.1-43.9 [facility] Erythrocyte distribution width (RBC) [Ratio] 16.6 % 11.6-14.6 [facility] Immature granulocytes/100 WBC (Bld) 0.800 % 0.0-0.9 [facility] Comment on above: IG% - Immature Granu locytes (promyelocytes, myelocytes and metamyelocytes) > 1% indicates that a LEFT SHIFT is Present. MCH (RBC) [Entitic mass] 28.5 pg 27.0-32.0 [facility] Nucleated RBC/100 WBC (Bld) [Ratio] 0 % 0- [facility] MCHC Auto (RBC) [Mass/Vol]Or dered By: Poli Barfield on 04-13-2023 MCHC (RBC) [Mass/Vol] 32.6 g/dL 32-36 [facility] No Panel InformationOrdered By: Poli Barfield on 04-13-2023 Estimated Creatinine Clearance Calc 59.62 ml/min [facility] Estimated GFR (MDRD) Amer 63 mL/min >60 [facility] Comment on above: GFR Calc Estimated GFR (MDRD) Non-Af Amer 52 mL/min >60 [facility] Comment on above: Non- GFR Calc 28.5 pg 27.0-32.0 [facility] 16.6 % 11.6-14.6 [facility] 47.7 fl 35.1-43.9 [facility] 0.800 % 0.0-0.9 [facility] 0 % 0-5 [facility] 52 mL/min >60 [facility] 63 mL/min >60 [facility] 59.62 ml/min [facility] 9.4 RATIO 04-30 [facility] 4.8 g/dL 2.2-4.2 [facility] 98 U/L 13-75 [facility] 114 U/L 45-117 [facility] 23 U/L 13-56 [facility] 24.0 mmol/L 21.0-32.0 [facility] Platelets bldOrdered By: Devon Barfield on 04-13-2023 Platelets (Bld) [#/Vol] 542 10*3/uL 150-450 [facility] Serum or plasma albumin hussein urement (mass/volume)Ordered By: Poli Barfield on 04-13-2023 Albumin [Mass/Vol] 3.0 g/dL 3.2-5.0 [facility] Serum or plasma albumin/glob ulin mass ratioOrdered By: Poli Barfield on 04-13-2023 Albumin/Globulin [Mass ratio] 0.6 {ratio} 0.9-2.4 [facility] Serum or plasma calcium hussein urement (mass/volume)Ordered By: Poli Barfield on 04-13-2023 Calcium [Mass/Vol] 9.5 mg/dL 8.5-10.1 [facility] Serum or plasma creatinine m easurement [...] 04-13-2023 Urea nitrogen [Mass/Vol] 12 mg/dL 7-18 [facility] Thin prep Papanicolaou smear with manual screeningOrdered By: Poli Barfield on 04-13-2023 Thin prep Papanicolaou smear with manual screening 17 U/L 15-37 [facility] Thin prep Papanicolaou smear with manual screening 8 5-15 [facility] Absolute lymphocyte countOrd ered By: Rickey Shepard on 03-06-2023 Lymphocytes Auto (Unsp spec) [#/Vol] 3.14 10*3/uL 0.83-4.51 [facility] Basophil percentageOrdered B y: Rickey Shepard on 03-06-2023 Basophil percentage 215 mg/dL 74-106 [facility] Basophil percentage 8.4 g/dL 6.4-8.2 [facility] Basophil percentage 0.50 mg/dL 0.20-1.00 [facility] Basophil percentage 134 mmol/L 136-145 [facility] Basophil percentage 3.1 mmol/L 3.5-5.1 [facility] Basophil percentage 101 mmol/L 98-107 [facility] Basophil percentage 2.2 mmol/L 0.4-2.0 [facility] Basophils (Bld) [#/Vol] 10.9 10*3/uL 4.4-11.0 [facility] Basophils (Bld) [#/Vol] 6.9 10*3/uL 2.0-7.7 [facility] Basophils/100 WBC (Bld) 62.8 % 47-70 [facility] Basophils/100 WBC (Bld) 0.2 % 0-5 [facility] Basophils/100 WBC (Bld) 0.4 % 0-1 [facility] Bilirubin [Mass/Vol] 0.50 mg/dL 0.20-1.00 [facility] Comment on above: For patients on eltr ombopag therapy, use of Dimension [place] TBIL is not recommended. Chloride [Moles/Vol] 101 mmol/L 98-107 [facility] Eosinophils/100 WBC (Bld) 0.2 % 0-5 [facility] Glucose [Mass/Vol] 215 mg/dL 74-106 [facility] Comment on above: Glucose result great er than or equal to 200 mg/dLsuggests DIABETES MELLITUS per A.D.A. criteria. Lactate [Moles/Vol] 2.2 mmol/L 0.4-2.0 [facility] Comment on above: Critical Result(s) C alled at: 09:58:40 03/06/2023 by: Gayathri Wilhelm. Results read back by same. Neutrophils (Bld) [#/Vol] 6.9 10*3/uL 2.0-7.7 [facility] Neutrophils/100 WBC (Bld) 62.8 % 47-70 [facility] Potassium [Moles/Vol] 3.1 mmol/L 3.5-5.1 [facility] Protein [Mass/Vol] 8.4 g/dL 6.4-8.2 [facility] Sodium [Moles/Vol] 134 mmol/L 136-145 [facility] WBC (Bld) [#/Vol] 10.9 10*3/uL 4.4-11.0 [facility] Basophil percentage 0 SEEN /hpf 0-5 [facility] Bilirubin Test strip Ql (U)O rdered By: Rickey Shepard on 03-06-2023 Bilirubin Ql (U) Negative Negative [facility] Blood erythrocytes count (nu mber/volume)Ordered By: Rickey Shepard on 03-06-2023 RBC (Bld) [#/Vol] 4.33 10*6/uL 4.2-5.4 [facility] Blood hemoglobin measurement (mass/volume)Ordered By: Rickey Shepard on 03-06-2023 Hemoglobin (Bld) [Mass/Vol] 11.5 g/dL 12.0-15.0 [facility] Blood lymphocytes/100 leukoc ytesOrdered By: Rickey Shepard on 03-06-2023 Lymphocytes/100 WBC (Bld) 28.8 % 19-41 [facility] Blood monocytes/100 leukocyt esOrdered By: Rickey Shepard on 03-06-2023 Monocytes/100 WBC (Bld) 7.2 % 0-10 [facility] Blood platelet mean volumeOr dered By: Rickey Shepard on 03-06-2023 Platelet mean volume (Bld) [Entitic vol] 9.2 fL 6.2-12.0 [facility] Determination of erythrocyte mean corpuscular volume (MCV)Ordered By: Rickey Shepard on 03-06-2023 MCV (RBC) [Entitic vol] 82.7 fL 81-99 [facility] Hematocrit Auto (Bld) [Volum e fraction]Ordered By: Rickey Shepard on 03-06-2023 Hematocrit (Bld) [Volume fraction] 35.8 % 37-47 [facility] INR in Blood by Coagulation assayOrdered By: Rickey Shepard on 03-06-2023 INR Coag (Bld) [Relative time] 1.2 {INR} [facility] Ketones Test strip Ql (U)Ord ered By: Rickey Shepard on 03-06-2023 Ketones Ql (U) Negative Negative [facility] Laboratory - Chemistry and C hemistry - challengeOrdered By: Rickey Shepard on 03-06-2023 ALP [Catalytic activity/Vol] 109 U/L 45-117 [facility] ALT [Catalytic activity/Vol] 13 U/L 13-56 [facility] CO2 [Moles/Vol] 25.0 mmol/L 21.0-32.0 [facility] Globulin (S) [Mass/Vol] 5.2 g/dL 2.2-4.2 [facility] Lipase [Catalytic activity/Vol] 59 U/L 13-75 [facility] Comment on above: Please note:LIPASE r evised reference range effective 22. New Lipase methodology. Expected to produce lower values than the previous assay method. NEW Reference Range: 13 - 75 U/L Urea nitrogen/Creatinine [Mass ratio] 4.0 mg/mg 10-20 [facility] Laboratory - CoagulationOrde red By: Rickey Shepard on 03-06-2023 aPTT Coag (Bld) [Time] 28.8 s 24.1-36.2 [facility] PT Coag (PPP) [Time] 14.8 s 11.7-14.9 [facility] Laboratory - Hematology and Cell countsOrdered By: Rickey Shepard on 03-06-2023 Erythrocyte distribution width (RBC) [Entitic vol] 41.1 fL 35.1-43.9 [facility] Erythrocyte distribution width (RBC) [Ratio] 13.6 % 11.6-14.6 [facility] Immature granulocytes/100 WBC (Bld) 0.600 % 0.0-0.9 [facility] Comment on above: IG% - Immature Granu locytes (promyelocytes, myelocytes and metamyelocytes) > 1% indicates that a LEFT SHIFT is Present. MCH (RBC) [Entitic mass] 26.6 pg 27.0-32.0 [facility] Nucleated RBC/100 WBC (Bld) [Ratio] 0 % 0-5 [facility] MCHC Auto (RBC) [Mass/Vol]Or dered By: Rickey Shepard on 03-06-2023 MCHC (RBC) [Mass/Vol] 32.1 g/dL 32-36 [facility] Mucus LM Ql (Urine sed)Order ed By: Rickey Shepard on 03-06-2023 Mucus Ql (Urine sed) 0 SEEN /hpf [facility] Nitrite Test strip Ql (U)Ord ered By: Rickey Shepard on 03-06-2023 Nitrite Ql (U) Negative Negative [facility] No Panel InformationOrdered By: Rickey Shepard on 03-06-2023 Estimated Creatinine Clearance Calc 75.55 ml/min [facility] Estimated GFR (MDRD) Amer 82 mL/min >60 [facility] Comment on above: GFR Calc Estimated GFR (MDRD) Non-Af Amer 68 mL/min >60 [facility] Comment on above: Non- GFR Calc 26.6 pg 27.0-32.0 [facility] 13.6 % 11.6-14.6 [facility] 41.1 fl 35.1-43.9 [facility] 0.600 % 0.0-0.9 [facility] 0 % 0-5 [facility] 14.8 SECONDS 11.7-14.9 [facility] 28.8 Seconds 24.1-36.2 [facility] 68 mL/min >60 [facility] 82 mL/min >60 [facility] 75.55 ml/min [facility] 4.0 RATIO 10-20 [facility] 5.2 g/dL 2.2-4.2 [facility] 59 U/L 13-75 [facility] 109 U/L 45-117 [facility] 13 U/L 13-56 [facility] 25.0 mmol/L 21.0-32.0 [facility] Platelets bldOrdered By: Ivy Shepard on 03-06-2023 Platelets (Bld) [#/Vol] 412 10*3/uL 150-450 [facility] Protein Test strip Ql (U)Ord ered By: Rickey Shepard on 03-06-2023 Protein Ql (U) 30 mg/dl Negative [facility] Serum or plasma acetone hussein urement (mass/volume)Ordered By: Rickey Shepard on 03-06-2023 Acetone [Mass/Vol] Negative NEG [facility] Serum or plasma albumin hussein urement (mass/volume)Ordered By: Rickey Shepard on 03-06-2023 Albumin [Mass/Vol] 3.2 g/dL 3.2-5.0 [facility] Serum or plasma albumin/glob ulin mass ratioOrdered By: Rickey Shepard on 03-06-2023 Albumin/Globulin [Mass ratio] 0.6 {ratio} 0.9-2.4 [facility] Serum or plasma calcium hussein urement (mass/volume)Ordered By: Rickey Shepard on 03-06-2023 Calcium [Mass/Vol] 9.3 mg/dL 8.5-10.1 [facility] Serum or plasma creatinine m easurement [...] 03-06-2023 Urea nitrogen [Mass/Vol] 4 mg/dL 7-18 [facility] Squamous epithelial cells de tection in urine sediment by light microscopyOrdered By: Rickey Shepard on 03-06-2023 Epithelial cells.squamous LM Ql (Urine sed) 0-5 SEEN /hpf 5-10 [facility] Thin prep Papanicolaou smear with manual screeningOrdered By: Rickey Shepard on 03-06-2023 Thin prep Papanicolaou smear with manual screening 7 U/L 15-37 [facility] Thin prep Papanicolaou smear with manual screening 8 5-15 [facility] Urine blood detectionOrdered By: Rickey Shepard on 03-06-2023 RBC Ql (U) 10 /ul Negative [facility] RBC Ql (U) 0 SEEN /hpf 0-5 [facility] Urine clarityOrdered By: Ivy Shepard on 03-06-2023 Clarity (U) Clear Clear [facility] Urine color determinationOrd ered By: Rickey Shepard on 03-06-2023 Color (U) Yellow Yellow [facility] Urine glucose detectionOrder ed By: Rickey Shepard on 03-06-2023 Glucose Ql (U) 100 mg/dl Normal [facility] Urine leukocyte esterase det ection by dipstickOrdered By: Rickey Shepard on 03-06-2023 Leukocyte esterase Test strip Ql (U) 25 /ul Negative [facility] Urine pHOrdered By: Rickey webb on 03-06-2023 pH (U) 7.0 [pH] 5.0 - 8.0 [facility] Urine sediment bacteria coun t by microscopy (number/high power field)Ordered By: Rickey Shepard on 03-06-2023 Bacteria LM.HPF (Urine sed) [#/Area] RARE /hpf None Seen [facility] Urine specific gravity measu rementOrdered By: Rickey Shepard on 03-06-2023 Specific gravity (U) [Rel density] 1.010 1.002-1.030 [facility] Urobilinogen Auto test strip Ql (U)Ordered By: Rickey Shepard on 03-06-2023 Urobilinogen Ql (U) Normal mg/dl Normal [facility] Basic metabolic 2000 panelon 03-04-2023 Anion gap [Moles/Vol] 14 mmol/L Normal 9-18 [facility] Comment on above: Order Comment: Speci men Type: BLOOD SPECIMENOrdering Facility: [facility] Address: [address] [address] Performed By: #### 2 4321-2 ####[facility] LABORATORYCLIA [id number] [place] [address] [place] Calcium [Mass/Vol] 8.9 mg/dL Normal 8.5-10.2 [facility] Comment on above: Order Comment: Speci men Type: BLOOD SPECIMENOrdering Facility: [facility] Address: [address] [address] Performed By: #### 2 4321-2 ####[facility] LABORATORYCLIA [id number] [place] [address] [place] Chloride [Moles/Vol] 102 mmol/L Normal 97-105 [facility] Comment on above: Order Comment: Speci men Type: BLOOD SPECIMENOrdering Facility: [facility] Address: [address] [address] Performed By: #### 2 4321-2 ####[facility]ORATORYCLIA [id number] [place] [address] [place] CO2 [Moles/Vol] 21 mmol/L Low 22-30 [facility] Comment on above: Order Comment: Speci men Type: BLOOD SPECIMENOrdering Facility: [facility] Address: [address] [address] Performed By: #### 2 4321-2 ####[facility] LABORATORYCLIA [id number] [place] [address] [place] Creatinine [Mass/Vol] 0.78 mg/dL Normal 0.58-0.96 [facility] Comment on above: Order Comment: Speci men Type: BLOOD SPECIMENOrdering Facility: [facility] Address: [address] [place] [address] Performed By: #### 2 4321-2 ####[facility] LABORATORYCLIA [id number] [place] [address] [place] Creatinine and Glomerular filtration rate.predicted panel (S/P/Bld) 104 mL/min/1.73m??? Normal >=60 [facility] Comment on above: Order Comment: Speci men Type: BLOOD SPECIMENOrdering Facility: [facility] Address: [address] [place] [address] Result Comment: Samreen mated Glomerular Filtration Rate [...] actual GFR. Performed By: #### 2 4321-2 ####[facility] LABORATORYCLIA [id number] [place] [address] [place] Glucose [Mass/Vol] 158 mg/dL High 74-99 [facility] Comment on above: Order Comment: Mahogany vargas Type: BLOOD SPECIMENOrdering Facility: [facility] Address: [address] [place] [address] Result Comment: The [place] [employer] (ADA) provides guidance for cutoff [...] Standards of Medical Care in Diabetes 2016, [place] [employer]. Diabetes Care. 2016.39(Suppl 1). Performed By: #### 2 4321-2 ####[facility] LABORATORYCLIA [id number] [place] [address] [place] Potassium [Moles/Vol] 3.3 mmol/L Low 3.7-5.1 [facility] Comment on above: Order Comment: Mahogany vargas Type: BLOOD SPECIMENOrdering Facility: [facility] Address: [address] [place] [address] Performed By: #### 2 4321-2 ####[facility] LABORATORYCLIA [id number] [place] [address] [place] Sodium [Moles/Vol] 137 mmol/L Normal 136-144 [facility] Comment on above: Order Comment: Mahogany vargas Type: BLOOD SPECIMENOrdering Facility: [facility] Address: [address] [place] [address] Performed By: #### 2 4321-2 ####[facility] LABORATORYCLIA [id number] [place] [address] [place] Urea nitrogen [Mass/Vol] 4 mg/dL Low 7-21 [facility] Comment on above: Order Comment: Speci men Type: BLOOD SPECIMENOrdering Facility: [facility] Address: [address] [address] Performed By: #### 2 4321-2 ####[facility] LABORATORYCLIA [id number] [address] CBC panel Auto (Bld)on 03-04 Erythrocyte distribution width (RBC) [Ratio] 13.5 % Normal 11.5-15.0 [facility] Comment on above: Order Comment: Speci men Type: BLOOD SPECIMENOrdering Facility: [facility] Address: [address] [place] [address] Performed By: #### 5 8410-2 ####[facility] LABORATORYCLIA [id number] [address] [place] Hematocrit (Bld) [Volume fraction] 34.2 % Low 36.0-46.0 [facility] Comment on above: Order Comment: Speci men Type: BLOOD SPECIMENOrdering Facility: [facility] Address: [address] [place] [address] Performed By: #### 5 8410-2 ####[facility] LABORATORYCLIA [id number] [address] [place] Hemoglobin (Bld) [Mass/Vol] 11.5 g/dL Normal 11.5-15.5 [facility] Comment on above: Order Comment: Speci men Type: BLOOD SPECIMENOrdering Facility: [facility] Address: [address] [place] [address] Performed By: #### 5 8410-2 ####[facility] LABORATORYCLIA [id number] [address] [place] MCH (RBC) [Entitic mass] 27.4 pg Normal 26.0-34.0 [facility] Comment on above: Order Comment: Speci men Type: BLOOD SPECIMENOrdering Facility: [facility] Address: [address] [place] [address] Performed By: #### 5 8410-2 ####[facility] LABORATORYCLIA [id number] [address] [place] MCHC (RBC) [Mass/Vol] 33.6 g/dL Normal 30.5-36.0 [facility] Comment on above: Order Comment: Speci men Type: BLOOD SPECIMENOrdering Facility: [facility] Address: [address] [place] [address] Performed By: #### 5 8410-2 ####[facility] LABORATORYCLIA [id number] [place] [address] [place] MCV (RBC) [Entitic vol] 81.6 fL Normal 80.0-100.0 [facility] Comment on above: Order Comment: Speci men Type: BLOOD SPECIMENOrdering Facility: [facility] Address: [address] [place] [address] Performed By: #### 5 8410-2 ####[facility] LABORATORYCLIA [id number] [place] [address] [place] Nucleated RBC (Bld) [#/Vol] 10*3/uL Normal <0.01 [facility] Comment on above: Order Comment: Speci men Type: BLOOD SPECIMENOrdering Facility: [facility] Address: [address] [place] [address] Performed By: #### 5 8410-2 ####[facility] LABORATORYCLIA [id number] [place] [address] [place] Platelet mean volume (Bld) [Entitic vol] 9.3 fL Normal 9.0-12.7 [facility] Comment on above: Order Comment: Speci men Type: BLOOD SPECIMENOrdering Facility: [facility] Address: [address] [place] [address] Performed By: #### 5 8410-2 ####[facility] LABORATORYCLIA [id number] [place] [address] [place] Platelets (Bld) [#/Vol] 362 10*3/uL Normal 150-400 [facility] Comment on above: Order Comment: Speci men Type: BLOOD SPECIMENOrdering Facility: [facility] Address: [address] Performed By: #### 5 8410-2 ####[facility] LABORATORYCLIA [id number] [address] [place] [address] [facility] RBC (Bld) [#/Vol] 4.19 10*6/uL Normal 3.90-5.20 [facility] Comment on above: Order Comment: Speci men Type: BLOOD SPECIMENOrdering Facility: [facility] Address: [address] [address] Performed By: #### 5 8410-2 ####[facility] LABORATORYCLIA [id number] [address] [place] [address] [facility] WBC (Bld) [#/Vol] 10.19 10*3/uL Normal 3.70-11.[address] [facility] Comment on above: Order Comment: Speci men Type: BLOOD SPECIMENOrdering Facility: [facility] Address: [address] [place] [address] Performed By: #### 5 8410-2 ####[facility] LABORATORYCLIA [id number] [address] CNDSon 03-04-2023 CNDS HNO ID: [id number] Author: Saida Lopez MD Service: ? Author [...] office evaluation. She was not evaluated by sous chef. Vomiting too frequent to count and constant [...] was prescribed stool softeners and laxatives during [facility] stay however she refuses to take [...] discharge in AM. Discussed with social media director/embedded case manager. Advance diet. PLAN 03/04/23: Hemodynamically is stable. Has been walking a lot. Gets anxious. Seen by psych and GI. Discussed with social media director/embedded case manager. OK to discharge the patient. Rest of management as outpatient. I personally spent more than 30 minutes for discharge of this patient. Discussed with unit PA/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 about care plans. Recommended to see her psychiatrist as outpatient. Has had high BP readings. Will add Losartan. Is diabetic too.. Vitals and labs were closely monitored and evaluated while hospitalized. Electrolytes were replaced as needed. Patient is stable for discharge home today. Patient should follow up with primary care physician (Amy Solorzano: [phone]) in 7-10 days for hospital follow up. Attending physician to follow up with full discharge summary. OTHER PROBLEMS/DIAGNOSIS: Principal Problem: Intractable nausea and vomiting Active Problems: DM2 (diabetes mellitus, type 2) ([facility]) HLD (hyperlipidemia) Obesity, Class I, BMI 30-34.9 Abdominal pain Constipation Anxiety and depression Borderline personality disorder ([facility]) Resolved Problems: * No resolved hospital problems. * OPERATIONS PERFORMED WHILE IN THE HOSPITAL: None IMPORTANT TEST/PROCEDURES: CT Scan EKG Xray, Gastric Emptying Study TEST RESULTS NOT AVAILABLE AT THIS TIME: No pending results Discharge Disposition Home/Self Care A (more content not included)... [facility] NURSING PROGon 03-04-2023 NURSING PROG HNO ID: [id number] Author: Shiloh Carl RN Service: Nursing Author [...] given. Pt left stable. Due care given. [facility] NURSING PROG HNO ID: [id number] Author: Hilda Dunlap RN Service: ? Author Type: Registered Nurse Type: Nursing Progress Note Filed: 03/04/2023 3:31 PM Note Text: 0725: Assumed patient care at this time. Safety maintained. 1600: Discharge instructions completed at this time. IV removed. Safety maintained. Belongings with patient. Patient has no needs at this time. Normal [facility] Basic metabolic 2000 panelon 03-03-2023 Anion gap [Moles/Vol] 12 mmol/L Normal 9-18 [facility] Comment on above: Order Comment: Speci men Type: BLOOD SPECIMENOrdering Facility: [facility] Address: [address] [place] [address] Performed By: #### 2 4321-2 ####[facility] LABORATORYCLIA [id number] [place] [address] [place] Calcium [Mass/Vol] 9.3 mg/dL Normal 8.5-10.2 [facility] Comment on above: Order Comment: Speci men Type: BLOOD SPECIMENOrdering Facility: [facility] Address: [address] [place] [address] Performed By: #### 2 4321-2 ####[facility] LABORATORYCLIA [id number] [place] [address] [place] Chloride [Moles/Vol] 103 mmol/L Normal 97-105 [facility] Comment on above: Order Comment: Speci men Type: BLOOD SPECIMENOrdering Facility: [facility] Address: [address] [place] [address] Performed By: #### 2 4321-2 ####[facility] LABORATORYCLIA [id number] [place] [address] [place] CO2 [Moles/Vol] 24 mmol/L Normal 22-30 [facility] Comment on above: Order Comment: Speci men Type: BLOOD SPECIMENOrdering Facility: [facility] Address: [address] [place] [address] Performed By: #### 2 4321-2 ####[facility] LABORATORYCLIA [id number] [place] [address] [place] Creatinine [Mass/Vol] 0.87 mg/dL Normal 0.58-0.96 [facility] Comment on above: Order Comment: Mahogany vargas Type: BLOOD SPECIMENOrdering Facility: [facility] [address] [facility] [address] [id number] Performed By: #### 2 4321-2 ####[facility] LABORATORYCLIA [id number] [place] [address] [place] Creatinine and Glomerular filtration rate.predicted panel (S/P/Bld) 91 mL/min/1.73m??? Normal >=60 [facility] Comment on above: Order Comment: Mahogany vargas Type: BLOOD SPECIMENOrdering Facility: [facility] Address: [address] [address] Result Comment: Samreen mated Glomerular Filtration Rate [...] actual GFR. Performed By: #### 2 4321-2 ####[facility] LABORATORYCLIA [id number] [place] [address] [place] Glucose [Mass/Vol] 137 mg/dL High 74-99 [facility] Comment on above: Order Comment: Mahogany vargas Type: BLOOD SPECIMENOrdering Facility: [facility] Address: [address] [address] Result Comment: The [place] [employer] (ADA) provides guidance for cutoff [...] Standards of Medical Care in Diabetes 2016, [place] [employer]. Diabetes Care. 2016.39(Suppl 1). Performed By: #### 2 4321-2 ####[facility] LABORATORYCLIA [id number] [place] [id number] [place] Potassium [Moles/Vol] 3.5 mmol/L Low 3.7-5.1 [facility] Comment on above: Order Comment: Speci men Type: BLOOD SPECIMENOrdering Facility: [facility] Address: [address] [place] [address] Performed By: #### 2 4321-2 ####[facility] LABORATORYCLIA [id number] [place] [address] [place] Sodium [Moles/Vol] 139 mmol/L Normal 136-144 [facility] Comment on above: Order Comment: Speci men Type: BLOOD SPECIMENOrdering Facility: [facility] Address: [address] [place] [address] Performed By: #### 2 4321-2 ####[facility] LABORATORYCLIA [id number] [place] [address] [place] Urea nitrogen [Mass/Vol] 6 mg/dL Low 7-21 [facility] Comment on above: Order Comment: Speci men Type: BLOOD SPECIMENOrdering Facility: [facility] Address: [address] [place] [address] Performed By: #### 2 4321-2 ####[facility] LABORATORYCLIA [id number] [place] [address] [place] CBC panel Auto (Bld)on 03-03 Erythrocyte distribution width (RBC) [Ratio] 13.2 % Normal 11.5-15.0 [facility] Comment on above: Order Comment: Speci men Type: BLOOD SPECIMENOrdering Facility: [facility] Address: [address] [place] [address] Performed By: #### 5 8410-2 ####[facility] LABORATORYCLIA [id number] [place] [address] [place] Hematocrit (Bld) [Volume fraction] 36.1 % Normal 36.0-46.0 [facility] Comment on above: Order Comment: Speci men Type: BLOOD SPECIMENOrdering Facility: [facility] Address: [address] [place] [address] Performed By: #### 5 8410-2 ####[facility] LABORATORYCLIA [id number] [place] [address] [place] Hemoglobin (Bld) [Mass/Vol] 12.2 g/dL Normal 11.5-15.5 [facility] Comment on above: Order Comment: Speci men Type: BLOOD SPECIMENOrdering Facility: [facility] Address: [address] [place] [address] Performed By: #### 5 8410-2 ####[facility] LABORATORYCLIA [id number] [place] [address] [place] MCH (RBC) [Entitic mass] 27.4 pg Normal 26.0-34.0 [facility] Comment on above: Order Comment: Speci men Type: BLOOD SPECIMENOrdering Facility: [facility] Address: [address] [place] [address] Performed By: #### 5 8410-2 ####[facility] LABORATORYCLIA [id number] [address] [place] MCHC (RBC) [Mass/Vol] 33.8 g/dL Normal 30.5-36.0 [facility] Comment on above: Order Comment: Speci men Type: BLOOD SPECIMENOrdering Facility: [facility] Address: [address] [place] [address] Performed By: #### 5 8410-2 ####[facility] LABORATORYCLIA [id number] [address] [place] MCV (RBC) [Entitic vol] 81.1 fL Normal 80.0-100.0 [facility] Comment on above: Order Comment: Speci men Type: BLOOD SPECIMENOrdering Facility: [facility] Address: [address] [place] [address] Performed By: #### 5 8410-2 ####[facility] LABORATORYCLIA [id number] [place] [address] [place] Nucleated RBC (Bld) [#/Vol] 10*3/uL Normal <0.01 [facility] Comment on above: Order Comment: Speci men Type: BLOOD SPECIMENOrdering Facility: [facility] Address: [address] [place] [address] Performed By: #### 5 8410-2 ####[facility] LABORATORYCLIA [id number] [place] [address] [place] Platelet mean volume (Bld) [Entitic vol] 9.0 fL Normal 9.0-12.7 [facility] Comment on above: Order Comment: Speci men Type: BLOOD SPECIMENOrdering Facility: [facility] Address: [address] [place] [address] Performed By: #### 5 8410-2 ####[facility] LABORATORYCLIA [id number] [place] [address] [place] Platelets (Bld) [#/Vol] 397 10*3/uL Normal 150-400 [facility] Comment on above: Order Comment: Speci men Type: BLOOD SPECIMENOrdering Facility: [facility] Address: [address] [place] [address] Performed By: #### 5 8410-2 ####[facility] LABORATORYCLIA [id number] [place] [address] [place] RBC (Bld) [#/Vol] 4.45 10*6/uL Normal 3.90-5.20 [facility] Comment on above: Order Comment: Speci men Type: BLOOD SPECIMENOrdering Facility: [facility] Address: [address] [place] [address] Performed By: #### 5 8410-2 ####[facility] LABORATORYCLIA [id number] [place] [address] [place] WBC (Bld) [#/Vol] 13.15 10*3/uL High 3.70-11.[address] [facility] Comment on above: Order Comment: Speci men Type: BLOOD SPECIMENOrdering Facility: [facility] Address: [place] [address] Performed By: #### 5 8410-2 ####[facility] LABORATORYCLIA [id number] [place] [address] [facility] CONSULTon 03-03-2023 CONSULT HNO ID: [id number] Author: Cayetano Tai MD Service: Psychiatry Author [...] admitted with intractable vomiting. She is from [place], [place] and was in [place] for a GI appointment and was sent [...] DATE: March 03, 2023 TIME: 3:[address] [facility] [address] ABD/PEL W IVCONon 023 CT ABD/PEL W IVCON * * *Final Report* * * DATE OF EXAM: Mar 03 2023 11:01AM SPC 0530 - CT ABD/PEL W IVCON / [...] on Mar 03 2023 11:11AM EST [id number] [facility] NURSING PROGon 03-03-2023 NURSING PROG HNO ID: [id number] Author: Anayeli Blue RN Service: PICC Team [...] 03, 2023 TIME: 10:46 AM PAGER/CONTACT #: [phone] [facility] NURSING PROG HNO ID: [id number] Author: Hilda Dunlap RN Service: ? Author [...] GI to come assess patient at bedside. [facility] ALLIED HEALTHon 03-02-2023 ALLIED HEALTH HNO ID: [id number] Author: Omari Juan RT(R) Service: Radiology Author [...] RT Marleni(R) March 02, 2023 5:12 PM [facility] Basic metabolic 2000 panelon 03-02-2023 Anion gap [Moles/Vol] 12 mmol/L Normal 9-18 [facility] Comment on above: Order Comment: Speci men Type: BLOOD SPECIMENOrdering Facility: [facility] Address: [address] [address] Performed By: #### 2 4321-2 ####[facility] LABORATORYCLIA [id number] [place] [address] [place] Calcium [Mass/Vol] 8.9 mg/dL Normal 8.5-10.2 [facility] Comment on above: Order Comment: Speci men Type: BLOOD SPECIMENOrdering Facility: [facility] Address: [address] [place] [address] Performed By: #### 2 4321-2 ####[facility] LABORATORYCLIA [id number] [place] [address] [place] Chloride [Moles/Vol] 102 mmol/L Normal 97-105 [facility] Comment on above: Order Comment: Speci men Type: BLOOD SPECIMENOrdering Facility: [facility] Address: [address] [place] [address] Performed By: #### 2 4321-2 ####[facility] LABORATORYCLIA [id number] [place] [address] [place] CO2 [Moles/Vol] 26 mmol/L Normal 22-30 [facility] Comment on above: Order Comment: Speci men Type: BLOOD SPECIMENOrdering Facility: [facility] Address: [address] [place] [address] Performed By: #### 2 4321-2 ####[facility] LABORATORYCLIA [id number] [place] [address] [place] Creatinine [Mass/Vol] 0.92 mg/dL Normal 0.58-0.96 [facility] Comment on above: Order Comment: Speci men Type: BLOOD SPECIMENOrdering Facility: [facility] Address: [address] [place] [address] Performed By: #### 2 4321-2 ####[facility] LABORATORYCLIA [id number] [place] [address] [place] Creatinine and Glomerular filtration rate.predicted panel (S/P/Bld) 86 mL/min/1.73m??? Normal >=60 [facility] Comment on above: Order Comment: Mahogany vargas Type: BLOOD SPECIMENOrdering Facility: [facility] Address: [address] [id number] Result Comment: Samreen mated Glomerular Filtration Rate [...] GFR. Performed By: #### 2 4321-2 ####[facility] LABORATORYCLIA [id number] [place] [address] [place] Glucose [Mass/Vol] 162 mg/dL High 74-99 [facility] Comment on above: Order Comment: Mahogany vargas Type: BLOOD SPECIMENOrdering Facility: [facility] Address: [address] [phone] Result Comment: The [place] [employer] (ADA) provides guidance for cutoff [...] Standards of Medical Care in Diabetes 2016, [place] [employer]. Diabetes Care. 2016.39(Suppl 1). Performed By: #### 2 4321-2 ####[facility] LABORATORYCLIA [id number] [place] [address] [place] Potassium [Moles/Vol] 3.7 mmol/L Normal 3.7-5.1 [facility] Comment on above: Order Comment: Mahogany vargas Type: BLOOD SPECIMENOrdering Facility: [facility] Address: [address] [address] Performed By: #### 2 4321-2 ####[facility] LABORATORYCLIA [id number] [place] [address] [place] Sodium [Moles/Vol] 140 mmol/L Normal 136-144 [facility] Comment on above: Order Comment: Speci men Type: BLOOD SPECIMENOrdering Facility: [facility] Address: [address] [address] Performed By: #### 2 4321-2 ####[facility] LABORATORYCLIA [id number] [place] [address] [place] Urea nitrogen [Mass/Vol] 8 mg/dL Normal 7-21 [facility] Comment on above: Order Comment: Speci men Type: BLOOD SPECIMENOrdering Facility: [facility] Address: [address] [address] Performed By: #### 2 4321-2 ####[facility] LABORATORYCLIA [id number] [place] [address] [place] CBC panel Auto (Bld)on 03-02 Erythrocyte distribution width (RBC) [Ratio] 13.4 % Normal 11.5-15.0 [facility] Comment on above: Order Comment: Speci men Type: BLOOD SPECIMENOrdering Facility: [facility] Address: [address] [address] Performed By: #### 5 8410-2 ####[facility] LABORATORYCLIA [id number] [address] [place] Hematocrit (Bld) [Volume fraction] 34.1 % Low 36.0-46.0 [facility] Comment on above: Order Comment: Speci men Type: BLOOD SPECIMENOrdering Facility: [facility] Address: [address] [address] Performed By: #### 5 8410-2 ####[facility] LABORATORYCLIA [id number] [place] [address] [place] Hemoglobin (Bld) [Mass/Vol] 11.3 g/dL Low 11.5-15.5 [facility] Comment on above: Order Comment: Speci men Type: BLOOD SPECIMENOrdering Facility: [facility] Address: [address] [address] Performed By: #### 5 8410-2 ####[facility] LABORATORYCLIA [id number] [place] [address] [place] MCH (RBC) [Entitic mass] 27.2 pg Normal 26.0-34.0 [facility] Comment on above: Order Comment: Speci men Type: BLOOD SPECIMENOrdering Facility: [facility] Address: [address] [place] [address] Performed By: #### 5 8410-2 ####[facility] LABORATORYCLIA [id number] [address] [place] MCHC (RBC) [Mass/Vol] 33.1 g/dL Normal 30.5-36.0 [facility] Comment on above: Order Comment: Speci men Type: BLOOD SPECIMENOrdering Facility: [facility] Address: [address] [place] [address] Performed By: #### 5 8410-2 ####[facility] LABORATORYCLIA [id number] [address] [place] MCV (RBC) [Entitic vol] 82.2 fL Normal 80.0-100.0 [facility] Comment on above: Order Comment: Speci men Type: BLOOD SPECIMENOrdering Facility: [facility] Address: [address] [place] [address] Performed By: #### 5 8410-2 ####[facility] LABORATORYCLIA [id number] [address] [place] Nucleated RBC (Bld) [#/Vol] 10*3/uL Normal <0.01 [facility] Comment on above: Order Comment: Speci men Type: BLOOD SPECIMENOrdering Facility: [facility] Address: [address] [place] [address] Performed By: #### 5 8410-2 ####[facility] LABORATORYCLIA [id number] [place] [address] [place] Platelet mean volume (Bld) [Entitic vol] 9.4 fL Normal 9.0-12.7 [facility] Comment on above: Order Comment: Speci men Type: BLOOD SPECIMENOrdering Facility: [facility] Address: [address] [place] [address] Performed By: #### 5 8410-2 ####[facility] LABORATORYCLIA [id number] [place] [address] [place] Platelets (Bld) [#/Vol] 374 10*3/uL Normal 150-400 [facility] Comment on above: Order Comment: Speci men Type: BLOOD SPECIMENOrdering Facility: [facility] Address: [address] [place] [address] Performed By: #### 5 8410-2 ####[facility] SYSTEMCLIA [id number] [place] [address] [place] RBC (Bld) [#/Vol] 4.15 10*6/uL Normal 3.90-5.20 [facility] Comment on above: Order Comment: Speci men Type: BLOOD SPECIMENOrdering Facility: [facility] Address: [address] [place] [address] Performed By: #### 5 8410-2 ####[facility] LABORATORYCLIA [id number] [place] [address] [place] WBC (Bld) [#/Vol] 9.29 10*3/uL Normal 3.70-11.00 [facility] Comment on above: Order Comment: Speci men Type: BLOOD SPECIMENOrdering Facility: [facility] Address: [address] [place] [address] Performed By: #### 5 8410-2 ####[facility] LABORATORYCLIA [id number] [place] [address] [facility] [place] Neha 03-02-2023 CNPN Telephone (SPPRAD) GHISLAINE GIVENS ([id number]) 1990 F [place] Date Time Provider Department 03/02/23 ALMITA TRAMMELL During your visit today, we recorded the following information about you: Almita Trammell PA-C 03/02/2023 2:33 PM Signed Hi, The patient needs outpatient GES for persistent nausea and vomiting once optimized. Orders placed. The patient is a Dr. Doran patient and should follow-up with him. Thanks! Almita Trammell PA-C Gastroenterology and Hepatology Allergies As of Date: 03/02/2023 (No Known Allergies) Date Reviewed: 03/02/2023 Reviewed by: Ghislaine Mancilla, RN - Fully Assessed Reason for Visit: Appointment [186] Primary Visit Diagnosis:Nausea [R11.0] Order(s):NM GASTRIC EMPTYING SOLID [9514220] Order #: [id number] FUTURE Prescriptions as of 01/31/2024 - acetaminophen [...] type 2) (HCC) [E11.9] 03/16/2013 Elevated BP [GFG9815] 04/28/2013 11/27/2013 HLD (hyperlipidemia) [E78.5] 11/27/2013 Tobacco use disorder [F17.200] 11/27/2013 Obesity, Class I, BMI 30-34.9 [E66.9] 02/18/2023 Intractable nausea and vomiting [R11.2] 02/18/2023 Severe protein-calorie malnutrition (HCC) [E43] 02/19/2023 Abdominal pain [R10.9] 03/01/2023 Constipation [K59.00] 03/02/2023 Anxiety and depression [F41.9, F32.A] 03/02/2023 Borderline personality disorder (HCC) [F60.3] 03/02/2023 Encounter Status:Closed by ALMITA TRAMMELL on 01/31/24 [facility] CONSULTon 03-02-2023 CONSULT HNO ID: [id number] Author: Gen Bradford MD Service: Gastroenterology Author Type: Physician Type: Consults Filed: 03/02/2023 5:20 PM Note Text: [facility] STAFF PHYSICIAN NOTE OF PERSONAL INVOLVEMENT IN [...] 02, 2023 Patient: Ghislaine Givens Medical Record: [id number] Reason for Consult: Abdominal pain, vomiting Requesting [...] mild gastritis and an esophageal ulcer at [facility]. She was escorted down from Dr. [...] directed. Patient (more content not included)... Normal [facility] HISTORY PHYSICALon HISTORY PHYSICAL HNO ID: [id number] Author: Saida Lopez MD Service: ? Author [...] 4. DM2 (diabetes mellitus, type 2) ([facility]) POA: Yes Monitor blood sugars closely. Use [...] office evaluation. She was not evaluated by sous chef. Vomiting too frequent to count and constant [...] was prescribed stool softeners and laxatives during [facility] stay however she refuses to take them because she feels they worsen abdominal pain. She was also prescribed narcotic pain medication for home which she states she has been taking. PAST MEDICAL HISTORY: PAST MEDICAL HISTORY Diagnosis Date Bipolar 1 disorder ([facility]) 2007 Depression Diabetes mellitus ([facility]) Elevated BP 04/28/2013 Insomnia PAST SURGICAL HISTORY: [...] daily bef (more content not included)... Normal [facility] XR ABDOMEN 1V SUPINEon 03-02 [...] Mar 02 2023 5:24P Dictated by: JAY ELDRIDGE MD This examination was interpreted and the report reviewed and electronically signed by: JAY ELDRIDGE MD on Mar 02 2023 5:24PM EST [id number] Normal [facility] CBC W Auto Differential pane l (Bld)on 03-01-2023 Basophils (Bld) [#/Vol] 0.04 10*3/uL Normal <0.11 [facility] Comment on above: Order Comment: Speci men Type: BLOOD SPECIMENOrdering Facility: [facility] Address: [address] [place] [address] Performed By: #### 5 7021-8 ####[facility] LABORATORYCLIA [id number] [place] [address] [place] Basophils/100 WBC (Bld) 0.3 % Normal [facility] Comment on above: Order Comment: Speci men Type: BLOOD SPECIMENOrdering Facility: [facility] Address: [address] [place] [address] Performed By: #### 5 7021-8 ####[facility] LABORATORYCLIA [id number] [place] [address] [place] Differential cell count method Nom (Bld) Auto Normal [facility] Comment on above: Order Comment: Speci men Type: BLOOD SPECIMENOrdering Facility: [facility] Address: [address] [address] Performed By: #### 5 7021-8 ####[facility] LABORATORYCLIA [id number] [place] [address] [place] Eosinophils (Bld) [#/Vol] 0.03 10*3/uL Normal <0.46 [facility] Comment on above: Order Comment: Speci men Type: BLOOD SPECIMENOrdering Facility: [facility] Address: [address] [address] Performed By: #### 5 7021-8 ####[facility] LABORATORYCLIA [id number] [place] [address] [place] Eosinophils/100 WBC (Bld) 0.2 % Normal [facility] Comment on above: Order Comment: Speci men Type: BLOOD SPECIMENOrdering Facility: [facility] Address: [address] [place] [address] Performed By: #### 5 7021-8 ####[facility] LABORATORYCLIA [id number] [place] [address] [place] Erythrocyte distribution width (RBC) [Ratio] 13.6 % Normal 11.5-15.0 [facility] Comment on above: Order Comment: Speci men Type: BLOOD SPECIMENOrdering Facility: [facility] Address: [address] [place] [address] Performed By: #### 5 7021-8 ####[facility] LABORATORYCLIA [id number] [place] [address] [place] Hematocrit (Bld) [Volume fraction] 41.4 % Normal 36.0-46.0 [facility] Comment on above: Order Comment: Speci men Type: BLOOD SPECIMENOrdering Facility: [facility] Address: [address] [place] [address] Performed By: #### 5 7021-8 ####[facility] LABORATORYCLIA [id number] [place] [address] [place] Hemoglobin (Bld) [Mass/Vol] 13.6 g/dL Normal 11.5-15.5 [facility] Comment on above: Order Comment: Speci men Type: BLOOD SPECIMENOrdering Facility: [facility] Address: [address] [place] [address] Performed By: #### 5 7021-8 ####[facility] LABORATORYCLIA [id number] [place] [address] [place] Immature granulocytes (Bld) [#/Vol] 0.08 10*3/uL Normal <0.10 [facility] Comment on above: Order Comment: Speci men Type: BLOOD SPECIMENOrdering Facility: [facility] Address: [address] [address] Performed By: #### 5 7021-8 ####[facility] LABORATORYCLIA [id number] [address] Immature granulocytes/100 WBC (Bld) 0.6 % Normal [facility] Comment on above: Order Comment: Speci men Type: BLOOD SPECIMENOrdering Facility: [facility] Address: [address] [place] [address] Performed By: #### 5 7021-8 ####[facility] LABORATORYCLIA [id number] [place] [address] [place] Lymphocytes (Bld) [#/Vol] 3.86 10*3/uL Normal 1.00-4.00 [facility] Comment on above: Order Comment: Speci men Type: BLOOD SPECIMENOrdering Facility: [facility] Address: [address] [place] [address] Performed By: #### 5 7021-8 ####[facility] LABORATORYCLIA [id number] [address] [place] Lymphocytes/100 WBC (Bld) 28.3 % Normal [facility] Comment on above: Order Comment: Speci men Type: BLOOD SPECIMENOrdering Facility: [facility] Address: [address] [place] [address] Performed By: #### 5 7021-8 ####[facility] LABORATORYCLIA [id number] [place] [address] [place] MCH (RBC) [Entitic mass] 26.8 pg Normal 26.0-34.0 [facility] Comment on above: Order Comment: Speci men Type: BLOOD SPECIMENOrdering Facility: [facility] Address: [address] [place] [address] Performed By: #### 5 7021-8 ####[facility] LABORATORYCLIA [id number] [place] [address] [place] MCHC (RBC) [Mass/Vol] 32.9 g/dL Normal 30.5-36.0 [facility] Comment on above: Order Comment: Speci men Type: BLOOD SPECIMENOrdering Facility: [facility] Address: [address] [place] [address] Performed By: #### 5 7021-8 ####[facility] LABORATORYCLIA [id number] [place] [address] [place] MCV (RBC) [Entitic vol] 81.7 fL Normal 80.0-100.0 [facility] Comment on above: Order Comment: Speci men Type: BLOOD SPECIMENOrdering Facility: [facility] Address: [address] [place] [address] Performed By: #### 5 7021-8 ####[facility] LABORATORYCLIA [id number] [place] [address] [place] Monocytes (Bld) [#/Vol] 0.80 10*3/uL Normal <0.87 [facility] Comment on above: Order Comment: Speci men Type: BLOOD SPECIMENOrdering Facility: [facility] Address: [address] [place] [address] Performed By: #### 5 7021-8 ####[facility] LABORATORYCLIA [id number] [address] Monocytes/100 WBC (Bld) 5.9 % Normal [facility] Comment on above: Order Comment: Speci men Type: BLOOD SPECIMENOrdering Facility: [facility] Address: [address] [place] [address] Performed By: #### 5 7021-8 ####[facility] LABORATORYCLIA [id number] [place] [address] [place] Neutrophils (Bld) [#/Vol] 8.85 10*3/uL High 1.45-7.50 [facility] Comment on above: Order Comment: Speci men Type: BLOOD SPECIMENOrdering Facility: [facility] Address: [address] [place] [address] Performed By: #### 5 7021-8 ####[facility] LABORATORYCLIA [id number] [place] [address] [place] Neutrophils/100 WBC (Bld) 64.7 % Normal [facility] Comment on above: Order Comment: Speci men Type: BLOOD SPECIMENOrdering Facility: [facility] Address: [address] [place] [address] Performed By: #### 5 7021-8 ####[facility] LABORATORYCLIA [id number] [place] [address] [place] Nucleated RBC (Bld) [#/Vol] 10*3/uL Normal <0.01 [facility] Comment on above: Order Comment: Speci men Type: BLOOD SPECIMENOrdering Facility: [facility] Address: [address] [place] [address] Performed By: #### 5 7021-8 ####[facility] LABORATORYCLIA [id number] [place] [address] [place] Nucleated RBC/100 WBC (Bld) [Ratio] 0.0 /100 WBC Normal [facility] Comment on above: Order Comment: Speci men Type: BLOOD SPECIMENOrdering Facility: [facility] Address: [address] [place] [address] Performed By: #### 5 7021-8 ####[facility] LABORATORYCLIA [id number] [place] [address] [place] Platelet mean volume (Bld) [Entitic vol] 9.3 fL Normal 9.0-12.7 [facility] Comment on above: Order Comment: Speci men Type: BLOOD SPECIMENOrdering Facility: [facility] Address: [address] [place] [address] Performed By: #### 5 7021-8 ####[facility] LABORATORYCLIA [id number] [place] [address] [place] Platelets (Bld) [#/Vol] 495 10*3/uL High 150-400 [facility] Comment on above: Order Comment: Speci men Type: BLOOD SPECIMENOrdering Facility: [facility] Address: [address] [address] Performed By: #### 5 7021-8 ####[facility] LABORATORYCLIA [id number] [place] [address] [place] [facility] RBC (Bld) [#/Vol] 5.07 10*6/uL Normal 3.90-5.20 [facility] Comment on above: Order Comment: Speci men Type: BLOOD SPECIMENOrdering Facility: [facility] Address: [address] [address] Performed By: #### 5 7021-8 ####[facility] LABORATORYCLIA [id number] [place] [address] [place] [facility] WBC (Bld) [#/Vol] 13.66 10*3/uL High 3.70-11.[address] [facility] Comment on above: Order Comment: Speci men Type: BLOOD SPECIMENOrdering Facility: [facility] Address: [address] [place] [address] Performed By: #### 5 7021-8 ####[facility] [facility] LABORATORYCLIA [id number] [address] Comprehensive metabolic 2000 panelon 03-01-2023 Albumin [Mass/Vol] 4.1 g/dL Normal 3.9-4.9 [facility] Comment on above: Order Comment: Speci men Type: BLOOD SPECIMENOrdering Facility: [facility] Address: [address] [place] [address] Performed By: #### [place], 35495-4, 3040-3, 03810-0 ####[facility] LABORATORYCLIA [id number] [place] [id number] [facility] [place] ALP [Catalytic activity/Vol] 102 U/L Normal 34-123 [facility] Comment on above: Order Comment: Speci men Type: BLOOD SPECIMENOrdering Facility: [facility] Address: [address] [place] [address] Performed By: #### B HB, 53440-5, 3040-3, 62505-9 ####[facility] LABORATORYCLIA [id number] [place] [address] [place] ALT [Catalytic activity/Vol] 10 U/L Normal 7-38 [facility] Comment on above: Order Comment: Speci men Type: BLOOD SPECIMENOrdering Facility: [facility] Address: [address] [place] [address] Performed By: #### B HB, , 3040-3, 29828-0 ####[facility] LABORATORYCLIA [id number] [place] [address] [place] Anion gap [Moles/Vol] 15 mmol/L Normal 9-18 [facility] Comment on above: Order Comment: Speci men Type: BLOOD SPECIMENOrdering Facility: [facility] Address: [address] [place] [address] Performed By: #### B HB, , 3039-3, 30391-6 ####[facility] LABORATORYCLIA [id number] [address] [place] AST [Catalytic activity/Vol] 12 U/L Low 13-35 [facility] Comment on above: Order Comment: Speci men Type: BLOOD SPECIMENOrdering Facility: [facility] Address: [address] [place] [address] Performed By: #### B HB, , 3040-3, 51430-1 ####[facility] LABORATORYCLIA [id number] [place] [address] [place] Bilirubin [Mass/Vol] 0.4 mg/dL Normal 0.2-1.3 [facility] Comment on above: Order Comment: Speci men Type: BLOOD SPECIMENOrdering Facility: [facility] Address: [address] [place] [address] Performed By: #### B HB, , 3040-3, 37967-4 ####[facility] LABORATORYCLIA [id number] [place] [address] [place] Calcium [Mass/Vol] 9.8 mg/dL Normal 8.5-10.2 [facility] Comment on above: Order Comment: Speci men Type: BLOOD SPECIMENOrdering Facility: [facility] Address: [address] [place] [address] Performed By: #### B HB, 72056-2, 3040-3, 44788-9 ####[facility] LABORATORYCLIA [id number] [place] [address] [place] Chloride [Moles/Vol] 95 mmol/L Low 97-105 [facility] Comment on above: Order Comment: Speci men Type: BLOOD SPECIMENOrdering Facility: [facility] Address: [address] [place] [address] Performed By: #### B HB, 42157-5, 3040-3, 52603-5 ####[facility] LABORATORYCLIA [id number] [place] [address] [place] CO2 [Moles/Vol] 23 mmol/L Normal 22-30 [facility] Comment on above: Order Comment: Speci men Type: BLOOD SPECIMENOrdering Facility: [facility] Address: [address] [place] [address] Performed By: #### B HB, 45738-1, 3040-3, 27552-5 ####[facility] LABORATORYCLIA [id number] [place] [address] [place] Creatinine [Mass/Vol] 1.02 mg/dL High 0.58-0.96 [facility] Comment on above: Order Comment: Speci men Type: BLOOD SPECIMENOrdering Facility: [facility] Address: [address] [place] [address] Performed By: #### B HB, 08377-1, 3040-3, 43666-2 ####[facility] LABORATORYCLIA [id number] [place] [address] [facility] [place] Creatinine and Glomerular filtration rate.predicted panel (S/P/Bld) 76 mL/min/1.73m??? Normal >=60 [facility] Comment on above: Order Comment: Mahogany vargas Type: BLOOD SPECIMENOrdering Facility: [facility] Address: [address] [place] [address] Result Comment: Samreen mated Glomerular Filtration Rate [...] actual GFR. Performed By: #### B HB, 60340-3, 0-3, 98963-9 ####[facility] LABORATORYCLIA [id number] [place] [address] [place] Glucose [Mass/Vol] 258 mg/dL High 74-99 [facility] Comment on above: Order Comment: Mahogany vargas Type: BLOOD SPECIMENOrdering Facility: [facility] Address: [address] [place], [place] [address] Result Comment: The [place] [employer] (ADA) provides guidance for cutoff [...] Standards of Medical Care in Diabetes 2016, [place] [employer]. Diabetes Care. 2016.39(Suppl 1). Performed By: #### B [place], 98006-6, 0-3, 45127-4 ####[facility] LABORATORYCLIA [id number] [place] [address] [place] Potassium [Moles/Vol] 3.5 mmol/L Low 3.7-5.1 [facility] Comment on above: Order Comment: Mahogany men Type: BLOOD SPECIMENOrdering Facility: [facility] Address: [address] [place] [address] Performed By: #### [place], [address]-0, 3040-3, 42273-7 ####[facility] LABORATORYCLIA [id number] [place] [address] [place] Protein [Mass/Vol] 8.5 g/dL High 6.3-8.0 [facility] Comment on above: Order Comment: Speci men Type: BLOOD SPECIMENOrdering Facility: [facility] Address: [address] [place] [address] Performed By: #### [place], [address]-8, 3040-3, 48104-9 ####[facility] KR[facility] LABORATORYCLIA [id number] [place] [address] [place] Sodium [Moles/Vol] 133 mmol/L Low 136-144 [facility] Comment on above: Order Comment: Speci men Type: BLOOD SPECIMENOrdering Facility: [facility] Address: [address] [place] [address] Performed By: #### [place], [address]-6, 0-3, 10249-2 ####[facility] TIFFANYCharan LABORATORYCLIA [id number] [place] [address] [place] Urea nitrogen [Mass/Vol] 11 mg/dL Normal 7- [facility] Comment on above: Order Comment: Speci men Type: BLOOD SPECIMENOrdering Facility: [facility] Address: [address] [place] [address] Performed By: #### [place], [address]-2, 0-3, 98732-9 ####[facility] ALLENCharan LABORATORYCLIA [id number] [place] [address] [place] ECG COMPLETEon 03-01-2023 ECG COMPLETE Ventricular Rate : 8 3 BPM Atrial Rate : 83 BPM P-R Interval : 126 ms QRS Duration : 90 ms Q-T Interval : 358 ms QTC Calculation(Bazett) : 420 ms Calculated P Blair : 5 degrees Calculated R Blair : 1 degrees Calculated T Blair : 13 degrees NORMAL SINUS RHYTHM MINIMAL VOLTAGE CRITERIA FOR LVH, MAY BE NORMAL VARIANT ( R in aVL ) NONSPECIFIC T WAVE ABNORMALITY ABNORMAL ECG NO PREVIOUS ECGS AVAILABLE Confirmed by ARABELLA SARMIENTO DO (), communications editor NORMAN GARVEY ([id number]) on 03/02/2023 7:20:55 AM NAME : GHISLAINE GIVENS PID : [id number] : 1990 Gender : Female Race : ORD : [id number] Procedure Date : Mar 01 2023 11:58:01 Edit Date : Mar 02 2023 07:20:56 Diagnosis: NORMAL SINUS RHYTHM MINIMAL VOLTAGE CRITERIA FOR LVH, MAY BE NORMAL VARIANT ( R in aVL ) NONSPECIFIC T WAVE ABNORMALITY ABNORMAL ECG NO PREVIOUS ECGS AVAILABLE Confirmed by ARABELLA SARMIENTO DO (), communications editor NORMAN GARVEY ([id number]) on 03/02/2023 7:20:55 AM Test Reason : Chest Pain Location : 1 : 1 ED Overread By : ARABELLA SARMIENTO DO Edited By : NORMAN GARVEY Referred By : , Acquired by : , [facility] ED NOTEon 03-01-2023 ED NOTE HNO ID: [id number] Author: Gayathri Bruno RN Service: ? Author Type: Registered Nurse Type: ED Notes Filed: 03/01/2023 5:12 PM Note Text: NG tube removed without complications. [facility] ED NOTE HNO ID: [id number] Author: Luzma Sen RN Service: Emergency Medicine Author Type: Registered Nurse Type: ED Notes Filed: 03/01/2023 5:05 PM Note Text: Patient crying and yelling in room to take out her NG tube. Provider aware. [facility] ED NOTE HNO ID: [id number] Author: Dewayne Gallagher RN Service: ? Author Type: Registered Nurse Type: ED Notes Filed: 03/01/2023 11:20 AM Note Text: Pt has longstanding pmh abd pain with n/v, had upper gi scope done at [facility] 02/19/23 that showed mild gastritis. Pt was in [facility] office for first visit, escorted down here by nursing staff. Pt denies diarrhea, sts too many episodes of vomiting to count, sts maybe a little when asked about hematemesis. Pt sts she hasnt smoked thc in 3 mos since all this started, sts ongoing issue for past 3 mos. [facility] ED PROV NOTEon 03-01-2023 ED PROV NOTE HNO ID: [id number] Author: Arabella Sarmiento DO Service: Emergency Medicine [...] office evaluation. She was not evaluated by sous chef. Vomiting too frequent to count and constant [...] was prescribed stool softeners and laxatives during [facility] stay however she refuses to take them because she feels they worsen abdominal pain. She was also prescribed narcotic pain medication for home which she states she has been taking. History provided by: Patient outside b2b sales used: No PAST MEDICAL HISTORY Diagnosis Date [...] no abdomin (more content not included)... Normal [facility] KETONES/ACETONE/BHBon 2022 Beta hydroxybutyrate [Moles/Vol] 0.70 mmol/L High <0.28 [facility] Comment on above: Order Comment: Speci men Type: BLOOD SPECIMENOrdering Facility: [facility] Address: [address] [place] [address] Performed By: #### [place], 36389-8, 0-3, 80158-6 ####[facility] LABORATORYCLIA [id number] [place] [address] [place] Lipase SerPl-cCncon 03-01-20 23 Lipase [Catalytic activity/Vol] 57 U/L Normal 16-61 [facility] Comment on above: Order Comment: Speci men Type: BLOOD SPECIMENOrdering Facility: [facility] Address: [address] [place] [address] Performed By: #### [place] HB, 44360-2, 3039-3, 76594-1 ####[facility] LABORATORYCLIA [id number] [place] [address] [place] Magnesium SerPl-mCncon 03-01 Magnesium [Mass/Vol] 1.7 mg/dL Normal 1.7-2.3 [facility] Comment on above: Order Comment: Speci men Type: BLOOD SPECIMENOrdering Facility: [facility] Address: [address] [place] [place] [address] Performed By: #### B HB, 37996-3, 0-3, 14463-6 ####[facility] LABORATORYCLIA [id number] [place] [address] [place] TOX SCREEN ROUT URon 023 Amphetamines Confirm (U) [Mass/Vol] Negative Normal Negative [facility] Comment on above: Order Comment: Speci men Type: URINE SPECIMENOrdering Facility: [facility] Address: [address] [place] [address] Result Comment: Cuto ff threshold at 1000 ng/mL. Performed By: #### U TOX2 ####[facility] LABORATORYCLIA [id number] [address] [place] BARBITURATES, URINE Negative Normal Negative [facility] Comment on above: Order Comment: Speci men Type: URINE SPECIMENOrdering Facility: [facility] Address: [address] [place] [address] Result Comment: Cuto ff threshold at 200 ng/mL. Performed By: #### U TOX2 ####[facility] LABORATORYCLIA [id number] [place] [address] [place] BENZODIAZEPINES, UR Negative Normal Negative [facility] Comment on above: Order Comment: Speci men Type: URINE SPECIMENOrdering Facility: [facility] Address: [address] [place] [address] Result Comment: Cuto ff threshold at 200 ng/mL. Performed By: #### U TOX2 ####[facility] LABORATORYCLIA [id number] [place] [address] [place] Cannabinoids Screen Ql (U) Negative Normal Negative [facility] Comment on above: Order Comment: Speci men Type: URINE SPECIMENOrdering Facility: [facility] Address: [address] [place] [address] Result Comment: Cuto ff threshold at 50 ng/mL. Performed By: #### U TOX2 ####[facility] LABORATORYCLIA [id number] [place] [address] [place] Cocaine Ql (U) Negative Normal Negative [facility] Comment on above: Order Comment: Speci men Type: URINE SPECIMENOrdering Facility: [facility] Address: [address] [place] [address] Result Comment: Cuto ff threshold at 300 ng/mL. Performed By: #### U TOX2 ####[facility] LABORATORYCLIA [id number] [place] [address] [place] Ethanol (U) [Mass/Vol] <11 Normal <11 [facility] Comment on above: Order Comment: Speci men Type: URINE SPECIMENOrdering Facility: [facility] Address: [address] [place] [address] Performed By: #### U TOX2 ####[facility] LABORATORYCLIA [id number] [place] [address] [place] Opiates Screen Ql (U) Positive Abnormal Negative [facility] Comment on above: Order Comment: Speci men Type: URINE SPECIMENOrdering Facility: [facility] Address: [address] [place] [address] Result Comment: Cuto ff threshold at 300 ng/mL. Performed By: #### U TOX2 ####[facility] LABORATORYCLIA [id number] [place] [address] [place] oxyCODONE cutoff Screen (U) [Mass/Vol] Negative Normal Negative [facility] Comment on above: Order Comment: Speci men Type: URINE SPECIMENOrdering Facility: [facility] Address: [address] [place] [address] Result Comment: Cuto ff threshold at 100 ng/mL. Performed By: #### U TOX2 ####[facility] LABORATORYCLIA [id number] [address] [place] Phencyclidine Ql (U) Negative Normal Negative [facility] Comment on above: Order Comment: Speci men Type: URINE SPECIMENOrdering Facility: [facility] Address: [address] [place] [address] Result Comment: Cuto ff threshold at 25 ng/mL. Performed By: #### U TOX2 ####[facility] LABORATORYCLIA [id number] [place] [address] [place] Urinalysis complete panel (U )on 03-01-2023 Bacteria LM.HPF (Urine sed) [#/Area] Moderate Abnormal None Seen [facility] Comment on above: Order Comment: Speci men Type: URINE SPECIMENOrdering Facility: [facility] Address: [address] [place] [address] Performed By: #### 2 4356-8 ####[facility] ARI[facility]A LABORATORYCLIA [id number] [place] [address] [place] Bilirubin Ql (U) 1+ Abnormal Negative [facility] Comment on above: Order Comment: Speci men Type: URINE SPECIMENOrdering Facility: [facility] Address: [address] [place] [address] Result Comment: Sugg est correlation with clinical findings and serum bilirubin if clinically indicated. Performed By: #### 2 4356-8 ####[facility] ALL[facility] LABORATORYCLIA [id number] [place] [address] [place] Clarity (Unsp spec) Cloudy Abnormal Clear [facility] Comment on above: Order Comment: Speci men Type: URINE SPECIMENOrdering Facility: [facility] Address: [address] [place] [address] Performed By: #### 2 4356-8 ####[facility] LABORATORYCLIA [id number] [place] [address] [place] Color (U) Yellow Normal Yellow [facility] Comment on above: Order Comment: Speci men Type: URINE SPECIMENOrdering Facility: [facility] Address: [address] [place] [address] Performed By: #### 2 4356-8 ####[facility] LABORATORYCLIA [id number] [place] [address] [place] Epithelial cells LM.HPF (Urine sed) [#/Area] Many Normal [facility] Comment on above: Order Comment: Speci men Type: URINE SPECIMENOrdering Facility: [facility] Address: [address] [place] [address] Result Comment: Few Performed By: #### 2 4356-8 ####[facility] LABORATORYCLIA [id number] [place] [address] [place] Glucose Test strip (U) [Mass/Vol] Trace Abnormal Negative [facility] Comment on above: Order Comment: Speci men Type: URINE SPECIMENOrdering Facility: [facility] Address: [address] [place] [address] Performed By: #### 2 4356-8 ####[facility] LABORATORYCLIA [id number] [place] [address] [place] Hemoglobin Ql (U) Negative Normal Negative, Trace [facility] Comment on above: Order Comment: Speci men Type: URINE SPECIMENOrdering Facility: [facility] Address: [address] [place] [address] Performed By: #### 2 4356-8 ####[facility] LABORATORYCLIA [id number] [place] [address] [place] Hyaline casts (Urine sed) [#/Area] 1-3 /LPF Abnormal 0 /LPF [facility] Comment on above: Order Comment: Speci men Type: URINE SPECIMENOrdering Facility: [facility] Address: [address] [place] [address] Performed By: #### 2 4356-8 ####[facility] LABORATORYCLIA [id number] [place] [address] [place] Ketones Ql (U) Trace Abnormal Negative [facility] Comment on above: Order Comment: Speci men Type: URINE SPECIMENOrdering Facility: [facility] Address: [address] [place] [address] Performed By: #### 2 4356-8 ####[facility] LABORATORYCLIA [id number] [place] [address] [place] Leukocyte esterase Test strip Ql (U) Negative Normal Negative [facility] Comment on above: Order Comment: Speci men Type: URINE SPECIMENOrdering Facility: [facility] Address: [address] [place] [address] Performed By: #### 2 4356-8 ####[facility] LABORATORYCLIA [id number] [place] [address] [place] Nitrite Ql (U) Negative Normal Negative [facility] Comment on above: Order Comment: Speci men Type: URINE SPECIMENOrdering Facility: [facility] Address: [address] [place] [address] Performed By: #### 2 4356-8 ####[facility] LABORATORYCLIA [id number] [place] [id number] [place] pH (U) 5.5 [pH] Normal 5.0-8.0 [facility] Comment on above: Order Comment: Speci men Type: URINE SPECIMENOrdering Facility: [facility] Address: [address] [place] [address] Performed By: #### 2 4356-8 ####[facility] SYSTEMCLIA [id number] [place] [id number] [place] Protein (U) [Mass/Vol] 2+ Abnormal Negative [facility] Comment on above: Order Comment: Speci men Type: URINE SPECIMENOrdering Facility: [facility] Address: [address] [place] [address] Performed By: #### 2 4356-8 ####[facility] LABORATORYCLIA [id number] [place] [address] [place] RBC LM.HPF (Urine sed) [#/Area] 0-3 /HPF Normal 0-3 /HPF [facility] Comment on above: Order Comment: Speci men Type: URINE SPECIMENOrdering Facility: [facility] Address: [address] [place] [address] Performed By: #### 2 4356-8 ####[facility] LABORATORYCLIA [id number] [place] [address] [place] Specific gravity (U) [Rel density] >=1.030 High 1.005-1.030 [facility] Comment on above: Order Comment: Speci men Type: URINE SPECIMENOrdering Facility: [facility] Address: [address] [place] [address] Performed By: #### 2 4356-8 ####[facility] LABORATORYCLIA [id number] [address] Urobilinogen Ql (U) 1.0 EU/dL Normal 0.2-1.0 EU/dL [facility] Comment on above: Order Comment: Speci men Type: URINE SPECIMENOrdering Facility: [facility] Address: [address] [place] [address] Performed By: #### 2 4356-8 ####[facility] LABORATORYCLIA [id number] [address] [place] WBC LM.HPF (Urine sed) [#/Area] 0-5 /HPF Normal 0-5 /HPF [facility] Comment on above: Order Comment: Speci men Type: URINE SPECIMENOrdering Facility: [facility] Address: [address] [place] [address] Performed By: #### 2 4356-8 ####[facility] LABORATORYCLIA [id number] [address] Absolute lymphocyte countOrd ered By: Perico Norman on 02-26-2023 Lymphocytes Auto (Unsp spec) [#/Vol] 2.45 10*3/uL 0.83-4.51 [facility] Basophil percentageOrdered B y: Perico Norman on 02-26-2023 Basophil percentage 0-5 SEEN /hpf 0-5 [facility] Basophil percentage 271 mg/dL 74-106 [facility] Basophil percentage 9.3 g/dL 6.4-8.2 [facility] Basophil percentage 0.80 mg/dL 0.20-1.00 [facility] Basophil percentage 131 mmol/L 136-145 [facility] Basophil percentage 3.4 mmol/L 3.5-5.1 [facility] Basophil percentage 98 mmol/L 98-107 [facility] Basophils (Bld) [#/Vol] 16.2 10*3/uL 4.4-11.0 [facility] Basophils (Bld) [#/Vol] 12.3 10*3/uL 2.0-7.7 [facility] Basophils/100 WBC (Bld) 75.8 % 47-70 [facility] Basophils/100 WBC (Bld) 0.1 % 0-5 [facility] Basophils/100 WBC (Bld) 0.4 % 0-1 [facility] Bilirubin [Mass/Vol] 0.80 mg/dL 0.20-1.00 [facility] Comment on above: For patients on eltr ombopag therapy, use of Dimension [place] TBIL is not recommended. Chloride [Moles/Vol] 98 mmol/L 98-107 [facility] Eosinophils/100 WBC (Bld) 0.1 % 0-5 [facility] Glucose [Mass/Vol] 271 mg/dL 74-106 [facility] Comment on above: Glucose result great er than or equal to 200 mg/dLsuggests DIABETES MELLITUS per A.D.A. criteria. Neutrophils (Bld) [#/Vol] 12.3 10*3/uL 2.0-7.7 [facility] Neutrophils/100 WBC (Bld) 75.8 % 47-70 [facility] Potassium [Moles/Vol] 3.4 mmol/L 3.5-5.1 [facility] Protein [Mass/Vol] 9.3 g/dL 6.4-8.2 [facility] Sodium [Moles/Vol] 131 mmol/L 136-145 [facility] WBC (Bld) [#/Vol] 16.2 10*3/uL 4.4-11.0 [facility] Beta hCG serum qualOrdered B y: Perico Norman on 02-26-2023 Beta HCG ( test) Ql Negative [facility] Bilirubin Test strip Ql (U)O rdered By: Perico Norman on 02-26-2023 Bilirubin Ql (U) Negative Negative [facility] Blood erythrocytes count (nu mber/volume)Ordered By: Perico Norman on 02-26-2023 RBC (Bld) [#/Vol] 4.97 10*6/uL 4.2-5.4 [facility] Blood hemoglobin measurement (mass/volume)Ordered By: Perico Norman on 02-26-2023 Hemoglobin (Bld) [Mass/Vol] 13.3 g/dL 12.0-15.0 [facility] Blood lymphocytes/100 leukoc ytesOrdered By: Perico Norman on 02-26-2023 Lymphocytes/100 WBC (Bld) 15.1 % 19-41 [facility] Blood monocytes/100 leukocyt esOrdered By: Perico Norman on 02-26-2023 Monocytes/100 WBC (Bld) 8.0 % 0-10 [facility] Blood platelet mean volumeOr dered By: Perico Norman on 02-26-2023 Platelet mean volume (Bld) [Entitic vol] 9.1 fL 6.2-12.0 [facility] Determination of erythrocyte mean corpuscular volume (MCV)Ordered By: Perico Norman on 02-26-2023 MCV (RBC) [Entitic vol] 80.9 fL 81-99 [facility] Direct bilirubinOrdered By: Perico Norman on 02-26-2023 Bilirubin.direct [Mass/Vol] 0.22 mg/dL 0.00-0.30 [facility] Hematocrit Auto (Bld) [Volum e fraction]Ordered By: Perico Norman on 02-26-2023 Hematocrit (Bld) [Volume fraction] 40.2 % 37-47 [facility] Ketones Test strip Ql (U)Ord ered By: Perico Norman on 02-26-2023 Ketones Ql (U) 15 mg/dl Negative [facility] - Chemistry and C hemistry - challengeOrdered By: Perico Norman on 02-26-2023 ALP [Catalytic activity/Vol] 108 U/L 45-117 [facility] ALT [Catalytic activity/Vol] 17 U/L 13-56 [facility] CO2 [Moles/Vol] 22.0 mmol/L 21.0-32.0 [facility] Globulin (S) [Mass/Vol] 5.7 g/dL 2.2-4.2 [facility] Lipase [Catalytic activity/Vol] 64 U/L 13-75 [facility] Comment on above: Please note:LIPASE r evised reference range effective 22. New Lipase methodology. Expected to produce lower values than the previous assay method. NEW Reference Range: 13 - 75 U/L Magnesium [Mass/Vol] 2.0 mg/dL 1.6-2.6 [facility] Urea nitrogen/Creatinine [Mass ratio] 13.2 mg/mg 10-20 [facility] Laboratory - Hematology and Cell countsOrdered By: Perico Norman on 02-26-2023 Erythrocyte distribution width (RBC) [Entitic vol] 38.7 fL 35.1-43.9 [facility] Erythrocyte distribution width (RBC) [Ratio] 13.2 % 11.6-14.6 [facility] Immature granulocytes/100 WBC (Bld) 0.600 % 0.0-0.9 [facility] Comment on above: IG% - Immature Granu locytes (promyelocytes, myelocytes and metamyelocytes) > 1% indicates that a LEFT SHIFT is Present. MCH (RBC) [Entitic mass] 26.8 pg 27.0-32.0 [facility] Nucleated RBC/100 WBC (Bld) [Ratio] 0 % 0-5 [facility] MCHC Auto (RBC) [Mass/Vol]Or dered By: Perico Norman on 02-26-2023 MCHC (RBC) [Mass/Vol] 33.1 g/dL 32-36 [facility] Mucus LM Ql (Urine sed)Order ed By: Perico Norman on 02-26-2023 Mucus Ql (Urine sed) 0 SEEN /hpf [facility] Nitrite Test strip Ql (U)Ord ered By: Perico Norman on 02-26-2023 Nitrite Ql (U) Negative Negative [facility] No Panel InformationOrdered By: Perico Norman on 02-26-2023 Urine Transitional Epithelial Cells 0-5 SEEN /hpf 0-5 [facility] 0-5 SEEN /hpf 0-5 [facility] Estimated Creatinine Clearance Calc 50.20 ml/min [facility] Estimated GFR (MDRD) Amer 51 mL/min >60 [facility] Comment on above: GFR Calc Estimated GFR (MDRD) Non-Af Amer 42 mL/min >60 [facility] Comment on above: Non- GFR Calc 26.8 pg 27.0-32.0 [facility] 13.2 % 11.6-14.6 [facility] 38.7 fl 35.1-43.9 [facility] 0.600 % 0.0-0.9 [facility] 0 % 0-5 [facility] 42 mL/min >60 [facility] 51 mL/min >60 [facility] 50.20 ml/min [facility] 13.2 RATIO 10-20 [facility] 5.7 g/dL 2.2-4.2 [facility] 64 U/L 13-75 [facility] 108 U/L 45-117 [facility] 17 U/L 13-56 [facility] 2.0 mg/dL 1.6-2.6 [facility] 22.0 mmol/L 21.0-32.0 [facility] Platelets bldOrdered By: Bakari Norman on 02-26-2023 Platelets (Bld) [#/Vol] 483 10*3/uL 150-450 [facility] Protein Test strip Ql (U)Ord ered By: Perico Norman on 02-26-2023 Protein Ql (U) 30 mg/dl Negative [facility] Serum or plasma albumin hussein urement (mass/volume)Ordered By: Perico Norman on 02-26-2023 Albumin [Mass/Vol] 3.6 g/dL 3.2-5.0 [facility] Serum or plasma calcium hussein urement (mass/volume)Ordered By: Perico Norman on 02-26-2023 Calcium [Mass/Vol] 9.8 mg/dL 8.5-10.1 [facility] Serum or plasma creatinine m easurement [...] 02-26-2023 Urea nitrogen [Mass/Vol] 20 mg/dL 7-18 [facility] Squamous epithelial cells de tection in urine sediment by light microscopyOrdered By: Perico Norman on 02-26-2023 Epithelial cells.squamous LM Ql (Urine sed) 0-5 SEEN /hpf 5-10 [facility] Thin prep Papanicolaou smear with manual screeningOrdered By: Perico Norman on 02-26-2023 Thin prep Papanicolaou smear with manual screening 12 U/L 15-37 [facility] Thin prep Papanicolaou smear with manual screening 11 5-15 [facility] Urine blood detectionOrdered By: Perico Norman on 02-26-2023 RBC Ql (U) 10 /ul Negative [facility] RBC Ql (U) 0 SEEN /hpf 0-5 [facility] Urine clarityOrdered By: Bakari Norman on 02-26-2023 Clarity (U) Clear Clear [facility] Urine color determinationOrd ered By: Perico Norman on 02-26-2023 Color (U) Yellow Yellow [facility] Urine glucose detectionOrder ed By: Perico Norman on 02-26-2023 Glucose Ql (U) 100 mg/dl Normal [facility] Urine leukocyte esterase det ection by dipstickOrdered By: Perico Norman on 02-26-2023 Leukocyte esterase Test strip Ql (U) 25 /ul Negative [facility] Urine pHOrdered By: Perico hernandez on 02-26-2023 pH (U) 5.0 [pH] 5.0 - 8.0 [facility] Urine sediment bacteria coun t by microscopy (number/high power field)Ordered By: Perico Norman on 02-26-2023 Bacteria LM.HPF (Urine sed) [#/Area] RARE /hpf None Seen [facility] Urine specific gravity measu rementOrdered By: Perico Norman on 02-26-2023 Specific gravity (U) [Rel density] 1.020 1.002-1.030 [facility] Urobilinogen Auto test strip Ql (U)Ordered By: Perico Norman on 02-26-2023 Urobilinogen Ql (U) Normal mg/dl Normal [facility] CBC + DIFFon 02-17-2023 Baso # 0.00 x10EE3/UL Normal 0.00 - 0.10 [facility] Comment on above: Performed By: #### 2 [id number] #### [facility],[address] [place] [address] 84972 Basophils/100 WBC (Bld) 0.4 % Normal 0.0 - 2.0 J [facility] Comment on above: Performed By: #### 2 22759 #### [facility],[address] [place] [address] 17691 CBC + DIFF Normal [facility] Comment on above: Result Comment: CBC- COMPLETE BLOOD COUNT Performed By: #### 2 84371 #### [facility],[address] [place] [address] 37575 EO # 0.00 x10EE3/UL Normal 0.00 - 0.50 [facility] Comment on above: Performed By: #### 2 25874 #### [facility],[address] [place] [address] 78925 Eosinophils/100 WBC (Bld) 0.2 % Normal 0.0 - 7.0 [facility] Comment on above: Performed By: #### 2 28923 #### [facility],[address] [place] [address] Erythrocyte distribution width (RBC) [Ratio] 15.1 % Normal 12.0 - 15.6 [facility] Comment on above: Performed By: #### 2 35876 #### [facility],[address] [place] [address] 02963 Hematocrit (Bld) [Volume fraction] 39.7 % Normal 34.0 - 46.0 [facility] Comment on above: Performed By: #### 2 54584 #### [facility],[address] [place] [address] 55982 Hemoglobin (Bld) [Mass/Vol] 13.3 g/dL Normal 12.0 - 16.0 [facility] Comment on above: Performed By: #### 2 28519 #### [facility],[address] [place] [address] 02989 Lymph # 3.30 x10EE3/UL High 0.80 - 2.80 [facility] Comment on above: Performed By: #### 2 31545 #### [facility],[address] [place] [address] 74294 Lymphocytes/100 WBC (Bld) 30.5 % Normal 20.0 - 45.0 [facility] Comment on above: Performed By: #### 2 71551 #### [facility],[address] [place] [address] 34084 MANUAL DIFF N/A Normal [facility] Comment on above: Performed By: #### 2 92353 #### [facility],[address] [place] [address] MCH (RBC) [Entitic mass] 27 pg Normal 27 - 33 [facility] Comment on above: Performed By: #### 2 79238 #### [facility],[address] [place] [address] MCHC 33 X10 3 Normal 32 - 36 [facility] Comment on above: Performed By: #### 2 42197 #### [facility],[address] [place] [address] MCV (RBC) [Entitic vol] 80 fL Normal 80 - 99 [facility] Comment on above: Performed By: #### 2 58851 #### [facility],[address] [place] [address] [place] # 0.60 x10EE3/UL Normal 0.20 - 1.00 [facility] Comment on above: Performed By: #### 2 57399 #### [facility],[address] [place] [address] MONOS % 5.9 % Normal 0.0 - 10.0 [facility] Comment on above: Performed By: #### 2 67141 #### [facility],[address] [place] [address] 55177 Morphology Franky (Bld) [Interp] N/A Normal [facility] Comment on above: Result Comment: {CD] Performed By: #### 2 03942 #### [facility],[address] [place] [address] Neut # 6.90 x10EE3/UL Normal 1.50 - 7.10 [facility] Comment on above: Performed By: #### 2 15835 #### [facility],[address] [place] [address] 81529 Neutrophils/100 WBC (Bld) 63.0 % Normal 46.0 - 76.0 [facility] Comment on above: Performed By: #### 2 29943 #### [facility],[address] [place] [address] 74497 PLATELET 561 x10EE3/UL High 150 - 450 [facility] Comment on above: Performed By: #### 2 87164 #### [facility],[address] [place] [address] 30803 Platelet mean volume (Bld) [Entitic vol] 7.6 fL Normal 6.6 - 10.5 [facility] Comment on above: Result Comment: AUTO MATED DIFFERENTIAL Performed By: #### 2 24467 #### [facility],[address] [place] [address] 35788 RBC 4.95 x 10EE6/UL Normal 4.10 - 5.30 [facility] Comment on above: Performed By: #### 2 83618 #### [facility],[address] [place] [address] 67851 WBC 10.9 x 10EE3/UL High 4.5 - 10.8 [facility] Comment on above: Performed By: #### 2 26602 #### [facility],[address] [place] [address] 93071 CMP with eGFRon 02-17-2023 AGE 33 years Normal [facility] Comment on above: Performed By: #### 2 13474 #### [facility],[address] [place] [address] 39564 Albumin [Mass/Vol] 3.5 g/dL Normal 3.4 - 5.0 [facility] Comment on above: Performed By: #### 2 04081 #### [facility],[address] [place] [address] 93380 Albumin/Globulin [Mass ratio] 0.6 {ratio} Low 0.9 - 1.6 [facility] Comment on above: Performed By: #### 2 60649 #### [facility],[address] [place] [address] 96751 ALK PHOS 112 U/L Normal 46 - 116 [facility] Comment on above: Performed By: #### 2 98009 #### [facility],[address] [place] [address] 21643 ALT [Catalytic activity/Vol] 28 U/L Normal 14 - 59 [facility] Comment on above: Performed By: #### 2 33262 #### [facility],[address] [place] [address] 45975 Anion gap [Moles/Vol] 21 mmol/L High 10 - 20 [facility] Comment on above: Performed By: #### 2 82365 #### [facility],[address] [place] [address] 35610 AST [Catalytic activity/Vol] 13 U/L Normal 13 - 39 [facility] Comment on above: Performed By: #### 2 27655 #### [facility],[address] [place] [address] 68251 B/C RATIO 12 ratio Normal 0 - 30 [facility] Comment on above: Performed By: #### 2 93643 #### [facility],[address] [place] [address] 71463 Bilirubin [Mass/Vol] 0.6 mg/dL Normal 0.2 - 1.0 [facility] Comment on above: Performed By: #### 2 91191 #### [facility],[address] [place] [address] 90886 Calcium [Mass/Vol] 9.6 mg/dL Normal 8.5 - 10.1 [facility] Comment on above: Performed By: #### 2 30555 #### [facility],[address] [place] [address] 80249 Chloride [Moles/Vol] 94 mmol/L Low 98 - 107 [facility] Comment on above: Performed By: #### 2 00701 #### [facility],[address] [place] [address] 22139 CMP with eGFR Normal [facility] Comment on above: Result Comment: COMP REHENSIVE METABOLIC PANEL Performed By: #### 2 70292 #### [facility],[address] [place] [address] 67326 CO2 [Moles/Vol] 23.7 mmol/L Normal 21.0 - 32.0 [facility] Comment on above: Performed By: #### 2 82983 #### [facility],[address] [place] [address] Creatinine [Mass/Vol] 1.18 mg/dL High 0.55 - 1.02 [facility] Comment on above: Performed By: #### 2 17877 #### [facility],[address] [place] [address] 24979 eGFR 53 ML/MINUTE Low 60 - 999 [facility] Comment on above: Performed By: #### 2 31998 #### [facility],[address] [place] [address] 15685 GFR/1.73 sq M.predicted among non-blacks MDRD (S/P/Bld) [Vol rate/Area] mL/min/{1.73_m2} Normal 60 - 999 [facility] Comment on above: Result Comment: ACCO RDING TO THE NATIONAL KIDNEY DISEASE EDUCATION PROGRAM(NKDE), A NORMAL eGFR IS A VALUE GREATER THAN OR EQUAL TO 60 ML/MIN/1.73 SQ METERS. CHRONIC KIDNEY DISEASE: <60mL/MIN/1.73 SQ METERS KIDNEY FAILURE: <15mL/MIN/1.73 SQ METERS THIS TEST SHOULD ONLY BE USED FOR PATIENTS 18 YEARS OF AGE AND OLDER. Performed By: #### 2 73450 #### [facility],[address] [place] [address] 79771 Globulin (S) [Mass/Vol] 5.4 g/dL High 1.5 - 3.8 [facility] Comment on above: Performed By: #### 2 63638 #### [facility],[address] [place] [address] 86073 Glucose [Mass/Vol] 306 mg/dL High 74 - 106 [facility] Comment on above: Performed By: #### 2 08063 #### [facility],[address] [place] [address] 76785 Potassium [Moles/Vol] 3.9 mmol/L Normal 3.5 - 5.1 [facility] Comment on above: Performed By: #### 2 27029 #### [facility],[address] [place] [address] 84065 Protein [Mass/Vol] 8.9 g/dL High 6.4 - 8.2 [facility] Comment on above: Performed By: #### 2 24765 #### [facility],[address] [place] [address] 29207 Sodium [Moles/Vol] 135 mmol/L Low 136 - 145 [facility] Comment on above: Performed By: #### 2 34349 #### [facility],[address] [place] [address] 78627 Urea nitrogen [Mass/Vol] 14 mg/dL Normal 7 - 18 [facility] Comment on above: Performed By: #### 2 50822 #### [facility],[address] [place] [address] 64024 DRUG SCREEN URINE MEDICon AMPHETAMINES Negative Normal [facility] Comment on above: Performed By: #### 2 57203 #### [facility],[address] [place] [address] 46109 B-DIAZEPINES Negative Normal [facility] Comment on above: Performed By: #### 2 75008 #### [facility],[address] [place] [address] 79808 BARBITURATES Negative Normal [facility] Comment on above: Performed By: #### 2 80625 #### [facility],[address] [place] [address] COCAINE Negative Normal [facility] Comment on above: Performed By: #### 2 74895 #### [facility],[address] [place] [address] DRUG SCREEN URINE MEDIC Normal [facility] Comment on above: Result Comment: DRUG SCREEN - URINE Performed By: #### 2 76246 #### [facility],[address] [place] [address] METHADONE Negative Normal [facility] Comment on above: Performed By: #### 2 89126 #### [facility],[address] [place] [address] OPIATES Negative Normal [facility] Comment on above: Performed By: #### 2 27525 #### [facility],[address] [place] [address] PCP Negative Normal [facility] Comment on above: Performed By: #### 2 60676 #### [facility],[address] [place] [address] THC Negative Normal [facility] Comment on above: Result Comment: ERASTO ENTS RECEIVING PROTON PUMP INHIBITORS MAY DEMONSTRATE FALSE POSITIVE THC/CANNABINOID RESULTS. AN ALTERNATIVE CONFIRMATORY METHOD SHOULD BE CONSIDERED TO VERIFY POSITIVE RESULTS. Performed By: #### 2 33476 #### [facility],[address] [place] [address] LIPASEon 02-17-2023 Lipase [Catalytic activity/Vol] 103.0 U/L Normal 73.0 - 393 [facility] Comment on above: Performed By: #### 2 22466 #### [facility],[address] [place] [address] URINEon 02-17-2023 Beta HCG ( test) Ql (U) Negative Normal NEGATIVE [facility] Comment on above: Performed By: #### 2 07197 #### [facility],[address] [place] [address] EXTERNAL QC DONE? YES Normal [facility] Comment on above: Performed By: #### 2 55281 #### [facility],[address] [place] [address] INTERNAL QC PASS Normal [facility] Comment on above: Performed By: #### 2 55212 #### [facility],[address] [place], [place] [id number] URINALYSISon 02-17-2023 Amorphous NONE Normal [facility] Comment on above: Performed By: #### 2 99636 #### [facility],[address] [place] [address] Bacteria TRACE Normal [facility] Comment on above: Performed By: #### 2 82206 #### [facility],[address] [place] [address] Bilirubin Ql (U) Negative Normal NORMAL: NEGATIVE [facility] Comment on above: Performed By: #### 2 44234 #### [facility],[address] [place] [address] Casts NONE Normal [facility] Comment on above: Performed By: #### 2 25754 #### [facility],[address] [place], [place] [id number] Clarity (U) sl.cloudy Normal NORMAL: CLEAR [facility] Comment on above: Performed By: #### 2 98264 #### [facility],[address] [place], [place] [id number] Color (U) jaqui Normal NORMAL: YELLOW [facility] Comment on above: Performed By: #### 2 79899 #### [facility],[address] [place], [place] [id number] Crystals LM Nom (Urine sed) NONE Normal [facility] Comment on above: Performed By: #### 2 41914 #### [facility],[address] [place], [place] [phone] Epi Cells FEW Normal [facility] Comment on above: Performed By: #### 2 59364 #### [facility],[address] [place] [address] 71771 Glucose Ql (U) 250 Abnormal NORMAL: NORMAL [facility] Comment on above: Performed By: #### 2 45556 #### [facility],[address] [place] [address] 55221 Hemoglobin Ql (U) Negative Normal NORMAL: NEGATIVE [facility] Comment on above: Performed By: #### 2 88289 #### [facility],[address] [place] [address] 76775 Ketone 150 Abnormal NORMAL: NEGATIVE [facility] Comment on above: Performed By: #### 2 69777 #### [facility],[address] [place] [address] 61277 Leukocytes 25 Abnormal NORMAL: NEGATIVE [facility] Comment on above: Performed By: #### 2 95265 #### [facility],[address] [place] [address] 12141 Mucous NONE Normal [facility] Comment on above: Performed By: #### 2 99124 #### [facility],[address] [place] [address] 35707 Nitrite Ql (U) Negative Normal NORMAL: NEGATIVE [facility] Comment on above: Performed By: #### 2 25033 #### [facility],[address] [place] [address] 50560 pH (U) 8 [pH] Normal NORMAL: 5.0-8.0 [facility] Comment on above: Performed By: #### 2 43780 #### [facility],[address] [place] [address] 56746 Protein Ql (U) 30 Abnormal NORMAL: NEGATIVE [facility] Comment on above: Performed By: #### 2 01951 #### [facility],[address] [place] [address] 42889 Rbc NONE Normal 0-3/hpf [facility] Comment on above: Performed By: #### 2 88145 #### [facility],[address] [place] [address] Sp [place] 1.010 Normal NORMAL: 1.010-1.030 [facility] Comment on above: Performed By: #### 2 84575 #### [facility],[address] [place] [address] Specimen Type UNSPECIFIED Normal [facility] Comment on above: Performed By: #### 2 50914 #### [facility],[address] [place] [address] Urinalysis dipstick W Reflex Microscopic panel (U) SEE BELOW Normal [facility] Comment on above: Result Comment: MICR OSCOPIC Performed By: #### 2 82778 #### [facility],[address] [place] [address] Urobilinog NORM Normal NORMAL: NORMAL [facility] Comment on above: Performed By: #### 2 46907 #### [facility],[address] [place], [place] [phone] Wbc 1-5 Normal 0-5/hpf [facility] Comment on above: Performed By: #### 2 31901 #### [facility],[address] [place], [place] [phone] Yeast NONE Normal [facility] Comment on above: Performed By: #### 2 63899 #### [facility],[address] [place], [place] [id number] .Auto Diffon 02-11-2023 Basophil, Absolute 0.1 10 3/mcL Normal 0.0-0.2 [facility] ([place]) Comment on above: Performed By: #### A DIFF, GFR, MDW, CMP, ANEU, CBC, LIP #### Michael [address] [address] Basophils/100 WBC (Bld) 0.5 % Normal 0.0-2.5 A [facility] ([place]) Comment on above: Performed By: #### A DIFF, GFR, MDW, CMP, ANEU, CBC, LIP #### [address] [address] Eosinophil, Absolute 0.0 10 3/mcL Normal 0.0-0.4 [facility] ([place]) Comment on above: Performed By: #### A DIFF, GFR, MDW, CMP, ANEU, CBC, LIP #### [address] [address] Eosinophils/100 WBC (Bld) 0.2 % Normal 0.0-7.0 [facility] ([place]) Comment on above: Performed By: #### A DIFF, GFR, MDW, CMP, ANEU, CBC, LIP #### [address] [address] Lymphocyte, Absolute 4.2 10 3/mcL High 0.8-3.9 [facility] ([place]) Comment on above: Performed By: #### A DIFF, GFR, MDW, CMP, ANEU, CBC, LIP #### [address] [address] Lymphocytes/100 WBC (Bld) 32.7 % Normal 10.0-50.0 [facility] ([place]) Comment on above: Performed By: #### A DIFF, GFR, MDW, CMP, ANEU, CBC, LIP #### [address] [address] Monocyte, Absolute 0.9 10 3/mcL Normal 0.2-1.0 [facility] ([place]) Comment on above: Performed By: #### A DIFF, GFR, MDW, CMP, ANEU, CBC, LIP #### [address] [address] Monocytes/100 WBC (Bld) 7.0 % Normal 1.7-13.0 [facility] ([place]) Comment on above: Performed By: #### A DIFF, GFR, MDW, CMP, ANEU, CBC, LIP #### [address] [address] Neutrophils/100 WBC (Bld) 59.6 % Normal 37.0-80.0 [facility]ly [facility] ([place]) Comment on above: Performed By: #### A DIFF, GFR, MDW, CMP, ANEU, CBC, LIP #### [address] [address] Basophil, Absolute 0.1 10 3/mcL Normal 0.0-0.2 [facility] ([place]) Comment on above: Performed By: #### C MP, GFR, CBC, LIP, ADIFF, ANEU, MDW #### [address] [address] Basophils/100 WBC (Bld) 0.6 % Normal 0.0-2.5 A [facility] ([place]) Comment on above: Performed By: #### C MP, GFR, CBC, LIP, ADIFF, ANEU, MDW #### [address] [address] Eosinophil, Absolute 0.0 10 3/mcL Normal 0.0-0.4 [facility] ([place]) Comment on above: Performed By: #### C MP, GFR, CBC, LIP, ADIFF, ANEU, MDW #### [address] [address] Eosinophils/100 WBC (Bld) 0.1 % Normal 0.0-7.0 [facility]ly [facility] ([place]) Comment on above: Performed By: #### C MP, GFR, CBC, LIP, ADIFF, ANEU, MDW #### [address] [address] Lymphocyte, Absolute 4.2 10 3/mcL High 0.8-3.9 [facility] ([place]) Comment on above: Performed By: #### C MP, GFR, CBC, LIP, ADIFF, ANEU, MDW #### [address] [address] Lymphocytes/100 WBC (Bld) 26.5 % Normal 10.0-50.0 [facility] ([place]) Comment on above: Performed By: #### C MP, GFR, CBC, LIP, ADIFF, ANEU, MDW #### [address] [address] Monocyte, Absolute 1.0 10 3/mcL Normal 0.2-1.0 [facility] ([place]) Comment on above: Performed By: #### C MP, GFR, CBC, LIP, ADIFF, ALDAIR MERRILL #### [address] [address] Monocytes/100 WBC (Bld) 6.1 % Normal 1.7-13.0 A [facility] ([place]) Comment on above: Performed By: #### C MP, GFR, CBC, LIP, ADIFF, ANEU, W #### [address] [address] Neutrophils/100 WBC (Bld) 66.7 % Normal 37.0-80.0 [facility] ([place]) Comment on above: Performed By: #### C MP, GFR, CBC, LIP, ADIFF, ANEU, MDW #### [address] [address] .GFRon 02-11-2023 GFR 63 ml/min/1.73sqm Normal [facility] ([place]) Comment on above: Result Comment: GFR Population [...] GFR, MDW, CMP, ANEU, CBC, LIP #### [address] [address] GFR Non- 52 ml/min/1.73sqm Normal [facility] ([place]) Comment on above: Result Comment: GFR Population [...] GFR, MDW, CMP, ANEU, CBC, LIP #### [address] [address] GFR Non- 42 ml/min/1.73sqm Normal [facility] ([place]) Comment on above: Result Comment: GFR Population [...] GFR, MDW, CMP, ANEU, CBC, LIP #### [address] [address] GFR 51 ml/min/1.73sqm Normal [facility] ([place]) Comment on above: Result Comment: GFR Population [...] GFR, MDW, CMP, ANEU, CBC, LIP #### [place] [id number] .MDWon 02-11-2023 Monocyte Distribution Width 19.69 Normal 0.00-20.00 [facility] ([place]) Comment on above: Result Comment: For ED adult patients suspected of sepsis, MDW<=20.0 does not rule out sepsis or risk of sepsis Performed By: #### A DIFF, GFR, MDW, CMP, ANEU, CBC, LIP #### [place] [address] .NEUABSon 02-11-2023 Neutrophil, Absolute 7.6 10 3/mcL High 2.9-6.2 [facility] ([place]) Comment on above: Performed By: #### A DIFF, GFR, MDW, CMP, ANEU, CBC, LIP #### [place] [address] Neutrophil, Absolute 10.5 10 3/mcL High 2.9-6.2 A [facility] ([place]) Comment on above: Performed By: #### C MP, GFR, CBC, LIP, ADIFF, ANEU, MDW #### [place] [address] .Urinalysis Microscopic (AO) on 02-11-2023 UA Bacteria Trace Abnormal [facility] ([place]) Comment on above: Performed By: #### A DIFF, GFR, MDW, CMP, ANEU, CBC, LIP #### [place] [address] UA RBC None Seen Normal None Seen [facility] ([place]) Comment on above: Performed By: #### A DIFF, GFR, MDW, CMP, ANEU, CBC, LIP #### [address] [address] UA Squam Epithelial 0-5 Abnormal None Seen [facility] ([place]) Comment on above: Performed By: #### A DIFF, GFR, MDW, CMP, ANEU, CBC, LIP #### [place] [address] [place], [place] [address] UA WBC 0-5 Abnormal None Seen [facility] ([place]) Comment on above: Performed By: #### A DIFF, GFR, MDW, CMP, ANEU, CBC, LIP #### [address] [address] A1Con 02-11-2023 HbA1c (Bld) [Mass fraction] 9.0 % High 4.3-6.4 [facility] ([place]) Comment on above: Performed By: #### A DIFF, GFR, MDW, CMP, ANEU, CBC, LIP #### [place] [id number] CBCon 02-11-2023 Erythrocyte distribution width (RBC) [Ratio] 14.8 % High 11.5-14.5 [facility] ([place]) Comment on above: Performed By: #### A DIFF, GFR, MDW, CMP, ANEU, CBC, LIP #### [address] [address] Hematocrit (Bld) [Volume fraction] 34.6 % Low 37.0-47.0 [facility] ([place]) Comment on above: Performed By: #### A DIFF, GFR, MDW, CMP, ANEU, CBC, LIP #### [address] [address] Hgb 11.5 G/dL Low 12.0-16.0 [facility] ([place]) Comment on above: Performed By: #### A DIFF, GFR, MDW, CMP, ANEU, CBC, LIP #### [address] [address] MCH (RBC) [Entitic mass] 26.6 pg Low 27.0-31.2 [facility] ([place]) Comment on above: Performed By: #### A DIFF, GFR, MDW, CMP, ANEU, CBC, LIP #### [address] [address] MCHC 33.3 G/dL Normal 33.0-37.0 [facility] ([place]) Comment on above: Performed By: #### A DIFF, GFR, MDW, CMP, ANEU, CBC, LIP #### [address] [address] MCV (RBC) [Entitic vol] 80.0 fL Normal 80.0-94.0 A [facility] ([place]) Comment on above: Performed By: #### A DIFF, GFR, MDW, CMP, ANEU, CBC, LIP #### [address] [address] Platelet 332 10 3/mcL Normal 130-400 [facility] ([place]) Comment on above: Performed By: #### A DIFF, GFR, MDW, CMP, ANEU, CBC, LIP #### [place] [address] Platelet mean volume (Bld) [Entitic vol] 7.5 fL Normal 7.4-10.4 [facility] ([place]) Comment on above: Performed By: #### A DIFF, GFR, MDW, CMP, ANEU, CBC, LIP #### [address] [address] RBC 4.33 10 6/mcL Normal 4.20-5.40 [facility] ([place]) Comment on above: Performed By: #### A DIFF, GFR, MDW, CMP, ANEU, CBC, LIP #### [address] [address] WBC 12.7 10 3/mcL High 4.6-10.8 [facility] ([place]) Comment on above: Performed By: #### A DIFF, GFR, MDW, CMP, ANEU, CBC, LIP #### [address] [address] Erythrocyte distribution width (RBC) [Ratio] 14.9 % High 11.5-14.5 [facility] ([place]) Comment on above: Performed By: #### C MP, GFR, CBC, LIP, DESIRAE TORRES MDW #### [address] [address] Hematocrit (Bld) [Volume fraction] 38.8 % Normal 37.0-47.0 [facility] ([place]) Comment on above: Performed By: #### C MP, GFR, CBC, LIP, ADDESIRAE ROMERO MDW #### [place] [address] Hgb 12.7 G/dL Normal 12.0-16.0 [facility] ([place]) Comment on above: Performed By: #### C MP, GFR, CBC, LIP, DESIRAE TORRES MDW #### [place] [address] MCH (RBC) [Entitic mass] 26.6 pg Low 27.0-31.2 [facility] ([place]) Comment on above: Performed By: #### C MP, GFR, CBC, LIP, ADHEATHER, ALDAIR MERRILL #### [place] [address] MCHC 32.8 G/dL Low 33.0-37.0 [facility] ([place]) Comment on above: Performed By: #### C MP, GFR, CBC, LIP, ADDESIRAE ROMERO MDW #### [place] [id number] MCV (RBC) [Entitic vol] 81.2 fL Normal 80.0-94.0 [facility] ([place]) Comment on above: Performed By: #### C MP, GFR, CBC, LIP, DESIRAE TORRES MDW #### [place] [id number] Platelet 385 10 3/mcL Normal 130-400 [facility] ([place]) Comment on above: Performed By: #### C MP, GFR, CBC, LIP, ADHEATHER, ALDAIR MERRILL #### [place] [address] Platelet mean volume (Bld) [Entitic vol] 7.6 fL Normal 7.4-10.4 [facility] ([place]) Comment on above: Performed By: #### C MP, GFR, CBC, LIP, ADIFF, ANEU, MDW #### [address] [address] RBC 4.78 10 6/mcL Normal 4.20-5.40 [facility] ([place]) Comment on above: Performed By: #### C MP, GFR, CBC, LIP, ADIFF, ANEU, MDW #### [address] [address] WBC 15.8 10 3/mcL High 4.6-10.8 [facility] ([place]) Comment on above: Performed By: #### C MP, GFR, CBC, LIP, ADIFF, ANEU, MDW #### [address] [address] CMPon 02-11-2023 ALT [Catalytic activity/Vol] 15 U/L Normal 14-59 [facility] ([place]) Comment on above: Performed By: #### A DIFF, GFR, MDW, CMP, ANEU, CBC, LIP #### [address] [address] Albumin Level 3.0 G/dL Low 3.5-5.0 [facility] ([place]) Comment on above: Performed By: #### A DIFF, GFR, MDW, CMP, ANEU, CBC, LIP #### [address] [address] Albumin/Globulin [Mass ratio] 0.8 {ratio} Low 1.1-2.5 [facility] ([place]) Comment on above: Performed By: #### A DIFF, GFR, MDW, CMP, ANEU, CBC, LIP #### [address] [address] ALP [Catalytic activity/Vol] 78 U/L Normal 40-135 [facility] ([place]) Comment on above: Performed By: #### A DIFF, GFR, MDW, CMP, ANEU, CBC, LIP #### [address] [address] AST [Catalytic activity/Vol] 17 U/L Normal 10-40 [facility] ([place]) Comment on above: Performed By: #### A DIFF, GFR, MDW, CMP, ANEU, CBC, LIP #### [address] [address] Bili Total 0.6 mg/dL Normal 0.2-1.0 [facility] ([place]) Comment on above: Result Comment: Use of this assay is not recommended for patients undergoing treatment with eltrombopag due to the potential for falsely elevated results. Performed By: #### A DIFF, GFR, MDW, CMP, ANEU, CBC, LIP #### [address] [address] BUN/Creatinine Ratio 6 ratio Low 7-27 [facility] ([place]) Comment on above: Performed By: #### A DIFF, GFR, MDW, CMP, ANEU, CBC, LIP #### [address] [address] Calcium [Mass/Vol] 8.5 mg/dL Normal 8.4-10.2 [facility] ([place]) Comment on above: Performed By: #### A DIFF, GFR, MDW, CMP, ANEU, CBC, LIP #### [address] [address] Chloride [Moles/Vol] 96 mmol/L Low 98-107 [facility] ([place]) Comment on above: Performed By: #### A DIFF, GFR, MDW, CMP, ANEU, CBC, LIP #### [address] [address] CO2 [Moles/Vol] 29 mmol/L Normal 22-29 [facility] ([place]) Comment on above: Performed By: #### A DIFF, GFR, MDW, CMP, ANEU, CBC, LIP #### [address] [address] Creatinine [Mass/Vol] 1.21 mg/dL High 0.55-1.02 [facility] ([place]) Comment on above: Performed By: #### A DIFF, GFR, MDW, CMP, ANEU, CBC, LIP #### [address] [address] Electrolyte Balance 11.0 mEq/L Normal 4.0-15.0 [facility] ([place]) Comment on above: Performed By: #### A DIFF, GFR, MDW, CMP, ANEU, CBC, LIP #### [address] [address] Globulin 3.7 G/dL Normal [facility] ([place]) Comment on above: Performed By: #### A DIFF, GFR, MDW, CMP, ANEU, CBC, LIP #### [address] [address] Glucose [Mass/Vol] 246 mg/dL High 70-105 [facility] ([place]) Comment on above: Performed By: #### A DIFF, GFR, MDW, CMP, ANEU, CBC, LIP #### [address] [address] Potassium [Moles/Vol] 3.5 mmol/L Normal 3.5-5.1 [facility] ([place]) Comment on above: Performed By: #### A DIFF, GFR, MDW, CMP, ANEU, CBC, LIP #### [address] [address] Sodium [Moles/Vol] 136 mmol/L Normal 136-145 [facility] ([place]) Comment on above: Performed By: #### A DIFF, GFR, MDW, CMP, ANEU, CBC, LIP #### [address] [address] Total Protein 6.7 G/dL Normal 6.4-8.2 [facility] ([place]) Comment on above: Performed By: #### A DIFF, GFR, MDW, CMP, ANEU, CBC, LIP #### [address] [address] Urea nitrogen [Mass/Vol] 7 mg/dL Normal 7-18 [facility] ([place]) Comment on above: Performed By: #### A DIFF, GFR, MDW, CMP, ANEU, CBC, LIP #### [address] [address] Albumin Level 3.7 G/dL Normal 3.5-5.0 [facility] ([place]) Comment on above: Performed By: #### A DIFF, GFR, MDW, CMP, ANEU, CBC, LIP #### [address] [address] Albumin/Globulin [Mass ratio] 0.8 {ratio} Low 1.1-2.5 [facility] ([place]) Comment on above: Performed By: #### A DIFF, GFR, MDW, CMP, ANEU, CBC, LIP #### [address] [address] ALP [Catalytic activity/Vol] 88 U/L Normal 40-135 [facility] ([place]) Comment on above: Performed By: #### A DIFF, GFR, MDW, CMP, ANEU, CBC, LIP #### [place] [address] ALT [Catalytic activity/Vol] 16 U/L Normal 14-59 [facility] ([place]) Comment on above: Performed By: #### A DIFF, GFR, MDW, CMP, ANEU, CBC, LIP #### [place] [address] AST [Catalytic activity/Vol] 10 U/L Normal 10-40 [facility] ([place]) Comment on above: Performed By: #### A DIFF, GFR, MDW, CMP, ANEU, CBC, LIP #### [address] [address] Bili Total 0.9 mg/dL Normal 0.2-1.0 [facility] ([place]) Comment on above: Result Comment: Use of this assay is not recommended for patients undergoing treatment with eltrombopag due to the potential for falsely elevated results. Performed By: #### A DIFF, GFR, MDW, CMP, ANEU, CBC, LIP #### [place] [address] BUN/Creatinine Ratio 6 ratio Low 7-27 [facility] ([place]) Comment on above: Performed By: #### A DIFF, GFR, MDW, CMP, ANEU, CBC, LIP #### [address] [address] Calcium [Mass/Vol] 9.4 mg/dL Normal 8.4-10.2 [facility] ([place]) Comment on above: Performed By: #### A DIFF, GFR, MDW, CMP, ANEU, CBC, LIP #### [address] [address] Chloride [Moles/Vol] 90 mmol/L Low 98-107 [facility] ([place]) Comment on above: Performed By: #### A DIFF, GFR, MDW, CMP, ANEU, CBC, LIP #### [address] [address] CO2 [Moles/Vol] 30 mmol/L High 22-29 [facility] ([place]) Comment on above: Performed By: #### A DIFF, GFR, MDW, CMP, ANEU, CBC, LIP #### [address] [address] Creatinine [Mass/Vol] 1.45 mg/dL High 0.55-1.02 [facility] ([place]) Comment on above: Performed By: #### A DIFF, GFR, MDW, CMP, ANEU, CBC, LIP #### [address] [address] Electrolyte Balance 7.0 mEq/L Normal 4.0-15.0 [facility] ([place]) Comment on above: Performed By: #### A DIFF, GFR, MDW, CMP, ANEU, CBC, LIP #### [address] [address] Globulin 4.4 G/dL Normal [facility] ([place]) Comment on above: Performed By: #### A DIFF, GFR, MDW, CMP, ANEU, CBC, LIP #### [address] [address] Glucose [Mass/Vol] 307 mg/dL High 70-105 [facility] ([place]) Comment on above: Performed By: #### A DIFF, GFR, MDW, CMP, ANEU, CBC, LIP #### [address] [address] Potassium [Moles/Vol] 3.5 mmol/L Normal 3.5-5.1 [facility] ([place]) Comment on above: Performed By: #### A DIFF, GFR, MDW, CMP, ANEU, CBC, LIP #### [address] [address] Sodium [Moles/Vol] 127 mmol/L Low 136-145 [facility] ([place]) Comment on above: Performed By: #### A DIFF, GFR, MDW, CMP, ANEU, CBC, LIP #### [address] [address] Total Protein 8.1 G/dL Normal 6.4-8.2 [facility] Comment on above: Performed By: #### A DIFF, GFR, MDW, CMP, ANEU, CBC, LIP #### [address] [address] Urea nitrogen [Mass/Vol] 8 mg/dL Normal 7-18 [facility] Comment on above: Performed By: #### A DIFF, GFR, MDW, CMP, ANEU, CBC, LIP #### [address] [address] LABORATORYOrdered By: Harriet logan on 02-11-2023 Blood Glucose Testing Reason Routine (02/11/23 4:15 PM) [facility] Work Phone: Glucose [Mass/Vol] 203 mg/dL Invalid Interpretation Code 70 - 110 mg/dL [facility] Work Phone: Blood Glucose Testing Reason Routine (02/11/23 7:15 AM) [facility] Work Phone: Glucose [Mass/Vol] 237 mg/dL Invalid Interpretation Code 70 - 110 mg/dL [facility] Work Phone: LABORATORYOrdered By: Manjinder Boogie on 02-11-2023 Blood Glucose Testing Reason Routine (02/11/23 12:04 PM) [facility] Work Phone: Glucose [Mass/Vol] 220 mg/dL Invalid Interpretation Code 70 - 110 mg/dL [facility] Work Phone: LABORATORYOrdered By: SYSTEM SYSTEM [...] Acid Lvl 1.7 mmol/L Normal 0.4-2.0 [facility] ([place]) Comment on above: Performed By: #### A DIFF, GFR, MDW, CMP, ANEU, CBC, LIP #### [address] [address] LIPon 02-11-2023 Lipase Level 39 U/L Normal 16-77 [facility] ([place]) Comment on above: Performed By: #### A DIFF, GFR, MDW, CMP, ANEU, CBC, LIP #### [address] [address] MGon 02-11-2023 Magnesium [Mass/Vol] 2.1 mg/dL Normal 1.8-2.4 [facility] ([place]) Comment on above: Performed By: #### A DIFF, GFR, MDW, CMP, ANEU, CBC, LIP #### [address] [address] NM GASTRIC EMPTYING STUDYon 02-11-2023 NM GASTRIC [...] findings and interpretation. Interpreted by: Rose Mary Escamilla Preliminary Report By: Say Zelaya Electronically signed By Rose Mary Escamilla Dictated Date: 02/11/2023 2:45:02 PM Prelim Date: 02/11/2023 3:41:00 PM Sign Date: 02/11/2023 3:41:00 PM Ordering Provider: MARTI WEBB Normal [facility] ([place]) No Panel Informationon 02-11 Microscopic examination of blood, culture Culture has been received in lab and is no growth to date. Routine cultures are held for 5 days. [facility] Work Phone: PREGUon 02-11-2023 HCG ( test) Ql (U) Negative Normal [facility] ([place]) Comment on above: Performed By: #### A DIFF, GFR, MDW, CMP, ANEU, CBC, LIP #### [facility] [address] [place], [place] [address] test (u) int Not detected Invalid Interpretation Code [facility] ([place]) Comment on above: Performed By: #### A DIFF, GFR, MDW, CMP, ANEU, CBC, LIP #### [facility] [address] [place], [place] [address] TOXSCon 02-11-2023 U Ampheta (AO) Negative Normal [facility] ([place]) Comment on above: Performed By: #### A DIFF, GFR, MDW, CMP, ANEU, CBC, LIP #### [address] [address] U Marifer (AO) Negative [facility] ([place]) Comment on above: Performed By: #### A DIFF, GFR, MDW, CMP, ANEU, CBC, LIP #### [address] [address] U Ayan (AO) Negative [facility] ([place]) Comment on above: Performed By: #### A DIFF, GFR, MDW, CMP, ANEU, CBC, LIP #### [address] [address] U Cannab (AO) Positive [facility] ([place]) Comment on above: Performed By: #### A DIFF, GFR, MDW, CMP, ANEU, CBC, LIP #### [address] [address] U Cocaine (AO) Negative [facility] ([place]) Comment on above: Performed By: #### A DIFF, GFR, MDW, CMP, ANEU, CBC, LIP #### [address] [address] U Methadone (AO) Negative [facility] ([place]) Comment on above: Performed By: #### A DIFF, GFR, MDW, CMP, ANEU, CBC, LIP #### [address] [address] U PCP (AO) Negative [facility] ([place]) Comment on above: Performed By: #### A DIFF, GFR, MDW, CMP, ANEU, CBC, LIP #### [address] [address] U TCA (AO) Negative [facility] ([place]) Comment on above: Performed By: #### A DIFF, GFR, MDW, CMP, ANEU, CBC, LIP #### [address] [address] Urine Opiates (AO) Positive [facility] ([place]) Comment on above: Performed By: #### A DIFF, GFR, MDW, CMP, ANEU, CBC, LIP #### [address] [address] UAon 02-11-2023 Color (U) Yellow Normal [facility] ([place]) Comment on above: Performed By: #### A DIFF, GFR, MDW, CMP, ANEU, CBC, LIP #### [place] [address] Glucose (U) [Mass/Vol] 100 mg/dL Abnormal Negative [facility] ([place]) Comment on above: Performed By: #### A DIFF, GFR, MDW, CMP, ANEU, CBC, LIP #### [place] [address] Ketones Ql (U) Negative Normal Negative [facility] ([place]) Comment on above: Performed By: #### A DIFF, GFR, MDW, CMP, ANEU, CBC, LIP #### [place] [address] UA Appear Clear Normal Clear [facility] ([place]) Comment on above: Performed By: #### A DIFF, GFR, MDW, CMP, ANEU, CBC, LIP #### [address] [address] UA Blood Trace Abnormal Negative [facility] ([place]) Comment on above: Performed By: #### A DIFF, GFR, MDW, CMP, ANEU, CBC, LIP #### [address] [address] UA Leuk Est Negative Normal Negative [facility] ([place]) Comment on above: Performed By: #### A DIFF, GFR, MDW, CMP, ANEU, CBC, LIP #### [place] [phone] UA Nitrite Negative Normal Negative [facility] ([place]) Comment on above: Performed By: #### A DIFF, GFR, MDW, CMP, ANEU, CBC, LIP #### [place] [address] UA pH 7.0 Normal 5.0 - 8.0 [facility] ([place]) Comment on above: Performed By: #### A DIFF, GFR, MDW, CMP, ANEU, CBC, LIP #### [address] [address] UA Protein Negative Normal Negative [facility] ([place]) Comment on above: Performed By: #### A DIFF, GFR, MDW, CMP, ANEU, CBC, LIP #### [address] [address] UA Spec Grav 1.015 Normal 1.015-1.025 [facility] ([place]) Comment on above: Performed By: #### A DIFF, GFR, MDW, CMP, ANEU, CBC, LIP #### [address] [address] UA Specimen Type Void Normal [facility] ([place]) Comment on above: Performed By: #### A DIFF, GFR, MDW, CMP, ANEU, CBC, LIP #### [place] [id number] UA Urobilinogen 0.2 E.U./dL Normal 0.2-1.0 [facility] ([place]) Comment on above: Performed By: #### A DIFF, GFR, MDW, CMP, ANEU, CBC, LIP #### [address] [address] Urobilinogen (U) [Mass/Vol] Negative Normal Negative [facility] ([place]) Comment on above: Performed By: #### A DIFF, GFR, MDW, CMP, ANEU, CBC, LIP #### [address] [address] Color (U) Yellow Normal [facility] ([place]) Comment on above: Performed By: #### A DIFF, GFR, MDW, CMP, ANEU, CBC, LIP #### [address] [address] Glucose (U) [Mass/Vol] 100 mg/dL Abnormal Negative [facility] ([place]) Comment on above: Performed By: #### A DIFF, GFR, MDW, CMP, ANEU, CBC, LIP #### [address] [address] Ketones Ql (U) 15 mg/dL Abnormal Negative [facility] ([place]) Comment on above: Performed By: #### A DIFF, GFR, W, CMP, ANEU, CBC, LIP #### [address] [address] UA Appear Clear Normal Clear [facility] ([place]) Comment on above: Performed By: #### A DIFF, GFR, W, CMP, ANEU, CBC, LIP #### [address] [address] UA Blood Trace Abnormal Negative [facility] ([place]) Comment on above: Performed By: #### A DIFF, GFR, ALDAIR, CMP, ANEU, CBC, LIP #### [address] [address] UA Leuk Est Trace Abnormal Negative Formerly [facility] ([place]) Comment on above: Performed By: #### A DIFF, GFR, ALDAIR, CMP, ANEU, CBC, LIP #### [address] [address] UA Nitrite Negative Normal Negative [facility]ly [facility] ([place]) Comment on above: Performed By: #### A DIFF, GFR, ALDAIR, CMP, ANEU, CBC, LIP #### [address] [address] UA pH 5.5 Normal 5.0 - 8.0 [facility] ([place]) Comment on above: Performed By: #### A DIFF, GFR, ALDAIR, CMP, ANEU, CBC, LIP #### [address] [address] UA Protein Negative Normal Negative [facility] ([place]) Comment on above: Performed By: #### A DIFF, GFR, W, CMP, ANEU, CBC, LIP #### [address] [address] UA Spec Grav <=1.005 Abnormal 1.015-1.025 [facility] ([place]) Comment on above: Performed By: #### A DIFF, GFR, ALDAIR, CMP, ANEU, CBC, LIP #### [facility] [address] [place], [place] [address] UA Specimen Type Clean Catch Normal [facility]ly [facility] ([place]) Comment on above: Performed By: #### A DIFF, GFR, MDW, CMP, ANEU, CBC, LIP #### [facility] [address] [place], [place] [address] UA Urobilinogen 0.2 E.U./dL Normal 0.2-1.0 [facility]ly [facility] ([place]) Comment on above: Performed By: #### A DIFF, GFR, MDW, CMP, ANEU, CBC, LIP #### [id number] [place], [place] [address] Urobilinogen (U) [Mass/Vol] Negative Normal Negative [facility] ([place]) Comment on above: Performed By: #### A DIFF, GFR, MDW, CMP, ANEU, CBC, LIP #### [id number] [place], [place] [address] US ABDOMEN COMPLETEon 2022 US ABDOMEN COMPLETE [...] 02/11/2023 1:29:01 PM Ordering Provider: MARTI WEBB [facility]) US PELVIS NON-OB W/TRANSVAGI NALon 02-11-2023 US [...] artifacts on the ultrasound. Interpreted by: Kermit Morrsi MD Preliminary Report By: Kermit Morris MD Electronically signed By Kermit Morris MD Dictated Date: 02/11/2023 12:07:34 PM Prelim Date: 02/11/2023 12:11:13 PM Sign Date: 02/11/2023 12:11:13 PM Ordering Provider: MARTI Maldonado [facility] ([place] XR ABDOMEN APon 02-11-2023 XR ABDOMEN AP [...] 02/11/2023 9:28:54 AM Ordering Provider: MARTI WEBB [facility] LABORATORYOrdered By: SYSTEM SYSTEM [...] Auto (Unsp spec) [#/Vol] 1.67 10*3/uL 0.83-4.51 [facility] Amorphous sediment detection in urine sediment by light microscopyOrdered By: Javy Doss on 02-08-2023 Amorphous sediment LM Ql (Urine sed) 3+ PHOS [facility] Basophil percentageOrdered B y: Javy Doss on 02-08-2023 Basophil percentage 0-5 SEEN /hpf 0-5 [facility] Basophil percentage 325 mg/dL 74-106 [facility] Basophil percentage 9.2 g/dL 6.4-8.2 [facility] Basophil percentage 0.70 mg/dL 0.20-1.00 [facility] Basophil percentage 134 mmol/L 136-145 [facility] Basophil percentage 3.7 mmol/L 3.5-5.1 [facility] Basophil percentage 96 mmol/L 98-107 [facility] Basophils (Bld) [#/Vol] 9.1 10*3/uL 4.4-11.0 [facility] Basophils (Bld) [#/Vol] 7.0 10*3/uL 2.0-7.7 [facility] Basophils/100 WBC (Bld) 0.2 % 0-1 [facility] Basophils/100 WBC (Bld) 77.0 % 47-70 [facility] Basophils/100 WBC (Bld) 0.0 % 0-5 [facility] Bilirubin [Mass/Vol] 0.70 mg/dL 0.20-1.00 [facility] Comment on above: For patients on eltr ombopag therapy, use of Dimension [place] TBIL is not recommended. Chloride [Moles/Vol] 96 mmol/L 98-107 [facility] Eosinophils/100 WBC (Bld) 0.0 % 0-5 [facility] Glucose [Mass/Vol] 325 mg/dL 74-106 [facility] Comment on above: Glucose result great er than or equal to 200 mg/dLsuggests DIABETES MELLITUS per A.D.A. criteria. Neutrophils (Bld) [#/Vol] 7.0 10*3/uL 2.0-7.7 [facility] Neutrophils/100 WBC (Bld) 77.0 % 47-70 [facility] Potassium [Moles/Vol] 3.7 mmol/L 3.5-5.1 [facility] Protein [Mass/Vol] 9.2 g/dL 6.4-8.2 [facility] Sodium [Moles/Vol] 134 mmol/L 136-145 [facility] WBC (Bld) [#/Vol] 9.1 10*3/uL 4.4-11.0 [facility] Beta hCG serum qualOrdered B y: Javy Doss on 02-08-2023 Beta HCG ( test) Ql Negative [facility] Bilirubin Test strip Ql (U)O rdered By: Javy Doss on 02-08-2023 Bilirubin Ql (U) Negative Negative [facility] Blood erythrocytes count (nu mber/volume)Ordered By: Javy Doss on 02-08-2023 RBC (Bld) [#/Vol] 5.27 10*6/uL 4.2-5.4 [facility] Blood hemoglobin measurement (mass/volume)Ordered By: Javy Doss on 02-08-2023 Hemoglobin (Bld) [Mass/Vol] 13.9 g/dL 12.0-15.0 [facility] Blood lymphocytes/100 leukoc ytesOrdered By: Javy Doss on 02-08-2023 Lymphocytes/100 WBC (Bld) 18.4 % 19-41 [facility] Blood monocytes/100 leukocyt esOrdered By: Javy Doss on 02-08-2023 Monocytes/100 WBC (Bld) 3.6 % 0-10 [facility] Blood platelet mean volumeOr dered By: Javy Doss on 02-08-2023 Platelet mean volume (Bld) [Entitic vol] 9.3 fL 6.2-12.0 [facility] Determination of erythrocyte mean corpuscular volume (MCV)Ordered By: Javy Doss on 02-08-2023 MCV (RBC) [Entitic vol] 81.2 fL 81-99 [facility] Hematocrit Auto (Bld) [Volum e fraction]Or[facility]: [facility] on 02-08-2023 Hematocrit (Bld) [Volume fraction] 42.8 % 37-47 [facility] Ketones Test strip Ql (U)Ord ered By: [facility] D[facility] on 02-08-2023 Ketones Ql (U) 50 mg/dl Negative [facility] Laboratory - Chemistry and C hemistry - challengeOrdered By: Albion Romario on 02-08-2023 ALP [Catalytic activity/Vol] 105 U/L 45-117 [facility] ALT [Catalytic activity/Vol] 24 U/L 13-56 [facility] CO2 [Moles/Vol] 30.0 mmol/L 21.0-32.0 [facility] Globulin (S) [Mass/Vol] 5.4 g/dL 2.2-4.2 [facility] Lipase [Catalytic activity/Vol] 38 U/L 13-75 [facility] Comment on above: Please note:LIPASE r evised reference range effective 22. New Lipase methodology. Expected to produce lower values than the previous assay method. NEW Reference Range: 13 - 75 U/L Urea nitrogen/Creatinine [Mass ratio] 7.4 mg/mg 10-20 [facility] Laboratory - Hematology and Cell countsOrdered By: Javy Doss on 02-08-2023 Erythrocyte distribution width (RBC) [Entitic vol] 39.1 fL 35.1-43.9 [facility] Erythrocyte distribution width (RBC) [Ratio] 13.3 % 11.6-14.6 [facility] Immature granulocytes/100 WBC (Bld) 0.800 % 0.0-0.9 [facility] Comment on above: IG% - Immature Granu locytes (promyelocytes, myelocytes and metamyelocytes) > 1% indicates that a LEFT SHIFT is Present. MCH (RBC) [Entitic mass] 26.4 pg 27.0-32.0 [facility] Nucleated RBC/100 WBC (Bld) [Ratio] 0 % 0-5 [facility] MCHC Auto (RBC) [Mass/Vol]Or dered By: Javy Doss on 02-08-2023 MCHC (RBC) [Mass/Vol] 32.5 g/dL 32-36 [facility] Mucus LM Ql (Urine sed)Order ed By: Javy Doss on 02-08-2023 Mucus Ql (Urine sed) 0 SEEN /hpf [facility] Nitrite Test strip Ql (U)Ord ered By: Javy Doss on 02-08-2023 Nitrite Ql (U) Negative Negative [facility] No Panel InformationOrdered By: Javy Doss on 02-08-2023 Estimated Creatinine Clearance Calc 62.55 ml/min [facility] Estimated GFR (MDRD) Amer 66 mL/min >60 [facility] Comment on above: GFR Calc Estimated GFR (MDRD) Non-Af Amer 55 mL/min >60 [facility] Comment on above: Non- GFR Calc 26.4 pg 27.0-32.0 [facility] 13.3 % 11.6-14.6 [facility] 39.1 fl 35.1-43.9 [facility] 0.800 % 0.0-0.9 [facility] 0 % 0-5 [facility] 55 mL/min >60 [facility] 66 mL/min >60 [facility] 62.55 ml/min [facility] 7.4 RATIO 10-20 [facility] 5.4 g/dL 2.2-4.2 [facility] 38 U/L 13-75 [facility] 105 U/L 45-117 [facility] 24 U/L 13-56 [facility] 30.0 mmol/L 21.0-32.0 [facility] Platelets bldOrdered By: Haylee benitez Romario on 02-08-2023 Platelets (Bld) [#/Vol] 394 10*3/uL 150-450 [facility] Protein Test strip Ql (U)Ord ered By: Javy Romario on 02-08-2023 Protein Ql (U) 30 mg/dl Negative [facility] Serum or plasma albumin hussein urement (mass/volume)Ordered By: Javy Romario on 02-08-2023 Albumin [Mass/Vol] 3.8 g/dL 3.2-5.0 [facility] Serum or plasma albumin/glob ulin mass ratioOrdered By: Javy Romario on 02-08-2023 Albumin/Globulin [Mass ratio] 0.7 {ratio} 0.9-2.4 [facility] Serum or plasma calcium hussein urement (mass/volume)Ordered By: Haylee Romario on 02-08-2023 Calcium [Mass/Vol] 9.7 mg/dL 8.5-10.1 [facility] Serum or plasma creatinine m easurement (mass/volume)Ordered By: Javy Romario on 02-08-2023 Creatinine [Mass/Vol] 1.22 mg/dL 0.55-1.02 [facility] Comment on above: The validity of the calculated GFR & GFRAA in patients over 70 years has not been determined. Clinical correlation is essential. Serum or plasma urea nitroge n measurement (mass/volume)Ordered By: Javy Romario on 02-08-2023 Urea nitrogen [Mass/Vol] 9 mg/dL 7-18 [facility] Squamous epithelial cells de tection in urine sediment by light microscopyOrdered By: Javy Romario on 02-08-2023 Epithelial cells.squamous LM Ql (Urine sed) 0-5 SEEN /hpf 5-10 [facility] Thin prep Papanicolaou smear with manual screeningOrdered By: Javy Romario on 02-08-2023 Thin prep Papanicolaou smear with manual screening 15 U/L 15-37 [facility] Thin prep Papanicolaou smear with manual screening 8 5-15 [facility] Urine blood detectionOrdered By: Remus Romario on 02-08-2023 RBC Ql (U) Negative Negative [facility] RBC Ql (U) 0 SEEN /hpf 0-5 [facility] Urine clarityOrdered By: Rem us Romario on 02-08-2023 Clarity (U) Sl. Cloudy Clear [facility] Urine color determinationOrd ered By: Remus Romario on 02-08-2023 Color (U) Yellow Yellow [facility] Urine glucose detectionOrder ed By: Remus Romario on 02-08-2023 Glucose Ql (U) 1000 mg/dl Normal [facility] Urine leukocyte esterase det ection by dipstickOrdered By: Remus Romario on 02-08-2023 Leukocyte esterase Test strip Ql (U) 25 /ul Negative [facility] Urine pHOrdered By: Javy Tee gur on 02-08-2023 pH (U) 8.0 [pH] 5.0 - 8.0 [facility] Urine sediment bacteria coun t by microscopy (number/high power field)Ordered By: Remus Doss on 02-08-2023 Bacteria LM.HPF (Urine sed) [#/Area] 0 /[HPF] None Seen [facility] Urine specific gravity measu rementOrdered By: Remus Doss on 02-08-2023 Specific gravity (U) [Rel density] 1.010 1.002-1.030 [facility] Urobilinogen Auto test strip Ql (U)Ordered By: Remus Doss on 02-08-2023 Urobilinogen Ql (U) Normal mg/dl Normal [facility] Absolute lymphocyte countOrd ered By: Fabricio Guevara on 02-04-2023 Lymphocytes Auto (Unsp spec) [#/Vol] 3.25 10*3/uL 0.83-4.51 [facility] Basophil percentageOrdered B y: Fabricio Guevara on 02-04-2023 Basophil percentage 259 mg/dL 74-106 [facility] Basophil percentage 8.1 g/dL 6.4-8.2 [facility] Basophil percentage 0.40 mg/dL 0.20-1.00 [facility] Basophil percentage 138 mmol/L 136-145 [facility] Basophil percentage 3.5 mmol/L 3.5-5.1 [facility] Basophil percentage 103 mmol[facility]L 98-[facility] Basophils (Bld) [#/Vol] 8.8 10*3/uL 4.4-11.0 [facility] Basophils (Bld) [#/Vol] 4.9 10*3/uL 2.0-7.7 [facility] Basophils/100 WBC (Bld) 0.3 % 0-1 [facility] Basophils/100 WBC (Bld) 55.7 % 47-70 [facility] Basophils/100 WBC (Bld) 0.5 % 0-5 [facility] Bilirubin [Mass/Vol] 0.40 mg/dL 0.20-1.00 [facility] Comment on above: For patients on eltr ombopag therapy, use of Dimension [place] TBIL is not recommended. Chloride [Moles/Vol] 103 mmol/L 98-107 [facility] Eosinophils/100 WBC (Bld) 0.5 % 0-5 [facility] Glucose [Mass/Vol] 259 mg/dL 74-106 [facility] Comment on above: Glucose result great er than or equal to 200 mg/dLsuggests DIABETES MELLITUS per A.D.A. criteria. Neutrophils (Bld) [#/Vol] 4.9 10*3/uL 2.0-7.7 [facility] Neutrophils/100 WBC (Bld) 55.7 % 47-70 [facility] Potassium [Moles/Vol] 3.5 mmol/L 3.5-5.1 [facility] Protein [Mass/Vol] 8.1 g/dL 6.4-8.2 [facility] Sodium [Moles/Vol] 138 mmol/L 136-145 [facility] WBC (Bld) [#/Vol] 8.8 10*3/uL 4.4-11.0 [facility] Blood erythrocytes count (nu mber/volume)Ordered By: Fabricio Guevara on 02-04-2023 RBC (Bld) [#/Vol] 4.65 10*6/uL 4.2-5.4 [facility] Blood hemoglobin measurement (mass/volume)Ordered By: Fabricio Guevara on 02-04-2023 Hemoglobin (Bld) [Mass/Vol] 12.5 g/dL 12.0-15.0 [facility] Blood lymphocytes/100 leukoc ytesOrdered By: Fabricio Guevara on 02-04-2023 Lymphocytes/100 WBC (Bld) 37.0 % 19-41 [facility] Blood monocytes/100 leukocyt esOrdered By: Fabricio Guevara on 02-04-2023 Monocytes/100 WBC (Bld) 5.8 % 0-10 [facility] Blood platelet mean volumeOr dered By: Fabricio Guevara on 02-04-2023 Platelet mean volume (Bld) [Entitic vol] 9.4 fL 6.2-12.0 [facility] Determination of erythrocyte mean corpuscular volume (MCV)Ordered By: Fabricio Guevara on 02-04-2023 MCV (RBC) [Entitic vol] 80.0 fL 81-99 [facility] Hematocrit Auto (Bld) [Volum e fraction]Ordered By: Fabricio Guevara on 02-04-2023 Hematocrit (Bld) [Volume fraction] 37.2 % 37-47 [facility] Laboratory - Chemistry and C hemistry - challengeOrdered By: Fabricio Guevara on 02-04-2023 ALP [Catalytic activity/Vol] 94 U/L 45-117 [facility] ALT [Catalytic activity/Vol] 29 U/L 13-56 [facility] CO2 [Moles/Vol] 25.0 mmol/L 21.0-32.0 [facility] Globulin (S) [Mass/Vol] 4.7 g/dL 2.2-4.2 [facility] Lipase [Catalytic activity/Vol] 51 U/L 13-75 [facility] Comment on above: Please note:LIPASE r evised reference range effective 22. New Lipase methodology. Expected to produce lower values than the previous assay method. NEW Reference Range: 13 - 75 U/L Urea nitrogen/Creatinine [Mass ratio] 7.0 mg/mg 10-20 [facility] Laboratory - Hematology and Cell countsOrdered By: Fabricio Guevara on 02-04-2023 Erythrocyte distribution width (RBC) [Entitic vol] 39.2 fL 35.1-43.9 [facility] Erythrocyte distribution width (RBC) [Ratio] 13.6 % 11.6-14.6 [facility] Immature granulocytes/100 WBC (Bld) 0.700 % 0.0-0.9 [facility] Comment on above: IG% - Immature Granu locytes (promyelocytes, myelocytes and metamyelocytes) > 1% indicates that a LEFT SHIFT is Present. MCH (RBC) [Entitic mass] 26.9 pg 27.0-32.0 [facility] Nucleated RBC/100 WBC (Bld) [Ratio] 0 % 0-5 [facility] MCHC Auto (RBC) [Mass/Vol]Or dered By: Fabricio Guevara on 02-04-2023 MCHC (RBC) [Mass/Vol] 33.6 g/dL 32-36 [facility] No Panel InformationOrdered By: Fabricio Guevara on 02-04-2023 Estimated GFR (MDRD) Amer 84 mL/min >60 [facility] Estimated GFR (MDRD) Non-Af Amer 69 mL/min >60 [facility] 26.9 pg 27.0-32.0 [facility] 13.6 % 11.6-14.6 [facility] 39.2 fl 35.1-43.9 [facility] 0.700 % 0.0-0.9 [facility] 0 % 0-5 [facility] 69 mL/min >60 [facility] 84 mL/min >60 [facility] 7.0 RATIO 10-20 [facility] 4.7 g/dL 2.2-4.2 [facility] 51 U/L 13-75 [facility] 94 U/L 45-117 [facility] 29 U/L 13-56 [facility] 25.0 mmol/L 21.0-32.0 [facility] Platelets bldOrdered By: Chidi Guevara on 02-04-2023 Platelets (Bld) [#/Vol] 358 10*3/uL 150-450 [facility] Serum or plasma albumin hussein urement (mass/volume)Ordered By: Fabricio Guevara on 02-04-2023 Albumin [Mass/Vol] 3.4 g/dL 3.2-5.0 [facility] Serum or plasma albumin/glob ulin mass ratioOrdered By: Fabricio Guevara on 02-04-2023 Albumin/Globulin [Mass ratio] 0.7 {ratio} 0.9-2.4 [facility] Serum or plasma calcium hussein urement (mass/volume)Ordered By: Fabricio Guevara on 02-04-2023 Calcium [Mass/Vol] 9.2 mg/dL 8.5-10.1 [facility] Serum or plasma creatinine m easurement [...] 02-04-2023 Urea nitrogen [Mass/Vol] 7 mg/dL 7-18 [facility] Thin prep Papanicolaou smear with manual screeningOrdered By: Fabricio Guevara on 02-04-2023 Thin prep Papanicolaou smear with manual screening 18 U/L 15-37 [facility] Thin prep Papanicolaou smear with manual screening 10 5-15 [facility] CBC W Auto Differential pane l (Bld)Ordered By: Yashira Cleaning on 01-24-2023 Basophils (Bld) [#/Vol] 0.0 10*3/uL 0.0 - 0.2 10*3/uL [facility] [place] [facility] Basophils/100 WBC (Bld) 0.3 % 0.0 - 2.0 % [facility] Eosinophils (Bld) [#/Vol] 0.0 10*3/uL 0.0 - 0.5 10*3/uL [facility] [place] [facility] Eosinophils/100 WBC (Bld) 0.3 % Low 1.0 - 6.0 % [facility] [place] [facility] Erythrocyte distribution width (RBC) [Ratio] 13.9 % 11.5 - 14.5 % [facility] Hematocrit (Bld) [Volume fraction] 37.2 % 35.0 - 47.0 % [facility] Hemoglobin (Bld) [Mass/Vol] 12.4 g/dL 11.7 - 16.0 g/dL [facility] Immature granulocytes (Bld) [#/Vol] 0.1 10*3/uL High NINF - 0.0 10*3/uL [facility] Immature granulocytes/100 WBC (Bld) 0.6 % High NINF - 0.0 % [facility] Interpretation and review of laboratory results Abnormal [facility] Lymphocytes (Bld) [#/Vol] 2.6 10*3/uL 1.0 - 4.3 10*3/uL [facility] Lymphocytes/100 WBC (Bld) 33.6 % 20.0 - 40.0 % [facility] MCH (RBC) [Entitic mass] 26.3 pg 26.0 - 34.0 pg [facility] MCHC (RBC) [Mass/Vol] 33.3 % 32.0 - 36.0 % [facility] MCV (RBC) [Entitic vol] 79.0 fL Low 80.0 - 98.0 fL [facility] Monocytes (Bld) [#/Vol] 0.5 10*3/uL 0.0 - 0.8 10*3/uL [facility] Monocytes/100 WBC (Bld) 5.9 % 2.0 - 10.0 % [facility] Neutrophils (Bld) [#/Vol] 4.6 10*3/uL 1.8 - 7.0 10*3/uL [facility] Neutrophils/100 WBC (Bld) 59.3 % 40.0 - 80.0 % [facility] Platelet mean volume (Bld) [Entitic vol] 9.1 fL 7.4 - 12.4 fL [facility] Comment on above: MPV is a calculated measurement using platelet volume ratio Platelets (Bld) [#/Vol] 342 10*3/uL 140 - 440 10*3/uL [facility] RBC (Bld) [#/Vol] 4.71 10*6/uL 3.8 - 5.20 10*6/uL [facility] WBC (Bld) [#/Vol] 7.8 10*3/uL 3.6 - 10.7 10*3/uL [facility] Comprehensive metabolic 1998 panelon 01-24-2023 Albumin [Mass/Vol] 4.2 g/dL 3.5 - 5.0 g/dL [facility] ALP [Catalytic activity/Vol] 74 U/L 38 - 126 U/L [facility] ALT [Catalytic activity/Vol] 20 U/L 0 - 34 U/L [facility] Anion gap [Moles/Vol] 10 mmol/L 3 - 13 mmol/L [facility] AST [Catalytic activity/Vol] 28 U/L 15 - 46 U/L [facility] Bilirubin [Mass/Vol] 0.7 mg/dL 0.2 - 1 .3 mg/dL [facility] Calcium [Mass/Vol] 9.4 mg/dL 8.4 - 10. 4 mg/dL [facility] Chloride [Moles/Vol] 100 mmol/L 98 - 10 7 mmol/L [facility] CO2 [Moles/Vol] 25 mmol/L 22 - 30 mmol/L [facility] Creatinine [Mass/Vol] 0.78 mg/dL 0.52 - 1.04 mg/dL [facility] GFR/1.73 sq M.predicted MDRD (S/P/Bld) [Vol rate/Area] - PINF [facility] Comment on above: Calculation based on the Chronic Kidney Disease Epidemiology Collaboration (CKD-EPI) equation refit without adjustment for race Glucose [Mass/Vol] 220 mg/dL High 70 - 100 mg/dL [facility] Interpretation and review of laboratory results Abnormal [facility] Potassium [Moles/Vol] 3.6 mmol/L 3.5 - 5.1 mmol/L [facility] Protein [Mass/Vol] 8.1 g/dL 6.3 - 8.2 g/dL [facility] Sodium [Moles/Vol] 135 mmol/L 135 - 145 mmol/L [facility] Urea nitrogen [Mass/Vol] 9 mg/dL 7 - 17 mg/dL [facility] ECG 12-LEADon 01-24-2023 ECG 12-LEAD IMPRESSION: SINUS RHYTHM VENTRICULAR PREMATURE COMPLEX CONSIDER LEFT VENTRICULAR HYPERTROPHY No previous ECG available for comparison Electronically Signed On 01-24-2023 11:21:48 EDT by Abdirizak Ramirez [facility] ED Nursing Noteon 01-24-2023 ED Nursing Note Patient to room 15 w ith c/o vomiting for 3 weeks. Patient reports being at [facility] and being told it was [facility], and there was nothing more they could do for her. Patient reports having Zofran at home that she doesn't take, because it has not relieved her symptoms. V/S obtained, call light within reach. Normal [facility] ED Provider Noteon ED Provider Note [facility] ED EMERGENCY DEPARTMENT ENCOUNTER Pt Name: Ghislaine [...] - Normal (more content not included)... Normal [facility] Laboratory - Chemistry and C hemistry - challengeon 01-24-2023 Troponin I.cardiac [Mass/Vol] ng/mL 0.000 - 0.034 ng/mL [facility] Lipase [Catalytic activity/Vol] 130 U/L 23 - 300 U/L [facility] Magnesium [Mass/Vol] 1.8 mg/dL 1.6 - 2 .3 mg/dL [facility] Beta HCG ( test) Ql Negative Negative [facility] Comment on above: Please note: Very di lute urine specimens, as indicated by a low specific gravity, may not contain product sales representative levels of hCG. If is still suspected, a first morning urine specimen should be collected 48 hours later and tested. Beta HCG ( test) Ql (U) is the most common reason for HCG in urine, although choriocarcinoma, hydatidiform mole, and certain nontrophoblastic malignancies also result in detectable urinary HCG levels. Sensitivity = 20mIU/mL. [facility] No Panel Informationon 01-24 P [place] -3 degrees [facility] ME Interval 128 ms [facility] QRS [place] -11 degrees [facility] QRSD Interval 86 ms [facility] QT Interval 396 ms [facility] QTC Interval 425 ms [facility] T Wave [place] 8 degrees [facility] SINUS RHYTHM VENTRICULAR PREMATURE COMPLEX CONSIDER LEFT VENTRICULAR HYPERTROPHY No previous ECG available for comparison Electronically Signed On 01-24-2023 11:21:48 EDT by Abdirizak Ramirez CV Abdirizak Camacho MD - 01/24/2023 IMPRESSION: SINUS RHYTHM VENTRICULAR PREMATURE COMPLEX CONSIDER LEFT VENTRICULAR HYPERTROPHY No previous ECG available for comparison Electronically Signed On 01-24-2023 11:21:48 EDT by Abdirizak Ramirez [facility] Interpretation and review of laboratory results Normal [facility] Troponin I.cardiac [Mass/Vol ]on 01-24-2023 Interpretation and review of laboratory results Normal [facility] Patients with high levels of Biotin oral intake (ie >5 mg/day) may have falsely decreased Troponin levels. [facility] Urinalysis complete panel (U )on 01-24-2023 Amorphous Crystals, Urine Few Abnormal Negative /HPF [facility] Bacteria LM.HPF (Urine sed) [#/Area] Few Abnormal Negative /HPF [facility] Bilirubin Ql (U) Negative Negative mg/dL [facility] Clarity (U) Turbid Abnormal Clear [facility] Color (U) Yellow Lt. Yellow [facility] Epithelial cells.squamous LM.HPF (Urine sed) [#/Area] 11-25 Abnormal [facility] Glucose Ql (U) 500 mg/dL Abnormal Normal (<70) [facility] Hemoglobin Ql (U) Negative Negative mg/dL [facility] Interpretation and review of laboratory results Abnormal [facility] Ketones (U) [Mass/Vol] 20 mg/dL Abnormal Negative [facility] Leukocyte esterase Test strip Ql (U) 250 Abnormal Negative [place]/uL [facility] Mucus LM.HPF (Urine sed) [#/Area] Few Negative /LPF [facility] Nitrite Ql (U) Negative Negative [facility] th pH (U) 6.5 [pH] 5.0 - 8.0 pH [facility] Protein (U) [Mass/Vol] 20 mg/dL Abnormal Negative [facility] RBC LM.HPF (Urine sed) [#/Area] 0-2 [facility] Specific gravity (U) [Rel density] 1.016 1.005 - 1.030 [facility] Urobilinogen (U) [Mass/Vol] Normal Normal (0-1) mg/dL [facility] Volume, Urine 12 mL [facility] WBC LM.HPF (Urine sed) [#/Area] 6-10 Abnormal [facility] Vital signson 01-24-2023 Heart rate 69 /min bpm [facility] CBC + DIFFon 01-17-2023 Baso # 0.00 x10EE3/UL Normal 0.00 - 0.10 [facility] Comment on above: Performed By: #### 2 [id number] #### [facility],[address] [place] [address] 32472 Basophils/100 WBC (Bld) 0.4 % Normal 0.0 - 2.0 [facility] Comment on above: Performed By: #### 2 46030 #### [facility],[address] [place], [place] [id number] CBC + DIFF Normal [facility] Comment on above: Result Comment: CBC- COMPLETE BLOOD COUNT Performed By: #### 2 98577 #### [facility],[address] [place] [address] 88505 EO # 0.00 x10EE3/UL Normal 0.00 - 0.50 [facility] Comment on above: Performed By: #### 2 77724 #### [facility],[address] [place], [place] [id number] Eosinophils/100 WBC (Bld) 0.3 % Normal 0.0 - 7.0 [facility] Comment on above: Performed By: #### 2 22752 #### [facility],[address] [place] [address] Erythrocyte distribution width (RBC) [Ratio] 15.2 % Normal 12.0 - 15.6 [facility] Comment on above: Performed By: #### 2 25730 #### [facility],[address] [place] [address] Hematocrit (Bld) [Volume fraction] 40.9 % Normal 34.0 - 46.0 [facility] Comment on above: Performed By: #### 2 20066 #### [facility],[address] [place] [address] 17687 Hemoglobin (Bld) [Mass/Vol] 13.6 g/dL Normal 12.0 - 16.0 [facility] Comment on above: Performed By: #### 2 56717 #### [facility],[address] [place] [address] 36718 Lymph # 3.30 x10EE3/UL High 0.80 - 2.80 [facility] Comment on above: Performed By: #### 2 89628 #### [facility],[address] [place] [address] 21644 Lymphocytes/100 WBC (Bld) 30.0 % Normal 20.0 - 45.0 [facility] Comment on above: Performed By: #### 2 45643 #### [facility],[address] [place] [address] MANUAL DIFF N/A Normal [facility] Comment on above: Performed By: #### 2 52739 #### [facility],[address] [place] [address] MCH (RBC) [Entitic mass] 27 pg Normal 27 - 33 [facility] Comment on above: Performed By: #### 2 46296 #### [facility],[address] [place] [address] MCHC 33 X10 3 Normal 32 - 36 [facility] Comment on above: Performed By: #### 2 22611 #### [facility],[address] [place], [place] [id number] MCV (RBC) [Entitic vol] 80 fL Normal 80 - 99 [facility] Comment on above: Performed By: #### 2 45342 #### [facility],[address] [place] [address] [place] # 0.80 x10EE3/UL Normal 0.20 - 1.00 [facility] Comment on above: Performed By: #### 2 56553 #### [facility],[address] [place] [address] 17429 MONOS % 7.6 % Normal 0.0 - 10.0 [facility] Comment on above: Performed By: #### 2 22943 #### [facility],[address] [place] [address] 75202 Morphology Franky (Bld) [Interp] N/A Normal [facility] Comment on above: Performed By: #### 2 52828 #### [facility],[address] [place] [address] 47957 Neut # 6.80 x10EE3/UL Normal 1.50 - 7.10 [facility] Comment on above: Performed By: #### 2 18960 #### [facility],[address] [place] [address] 66796 Neutrophils/100 WBC (Bld) 61.7 % Normal 46.0 - 76.0 [facility] Comment on above: Performed By: #### 2 37011 #### [facility],[address] [place] [address] 15927 PLATELET 504 x10EE3/UL High 150 - 450 [facility] Comment on above: Performed By: #### 2 13924 #### [facility],[address] [place] [address] 08238 Platelet mean volume (Bld) [Entitic vol] 7.2 fL Normal 6.6 - 10.5 [facility] Comment on above: Result Comment: AUTO MATED DIFFERENTIAL Performed By: #### 2 10011 #### [facility],[address] [place] [address] 36418 RBC 5.14 x 10EE6/UL Normal 4.10 - 5.30 [facility] Comment on above: Performed By: #### 2 15799 #### [facility],[address] [place] [address] 87137 WBC 11.1 x 10EE3/UL High 4.5 - 10.8 [facility] Comment on above: Performed By: #### 2 32066 #### [facility],[address] [place] [address] 65229 CMP with eGFRon 01-17-2023 AGE 32 years Normal [facility] Comment on above: Performed By: #### 2 04477 #### [facility],[address] [place] [address] 05349 Albumin [Mass/Vol] 3.6 g/dL Normal 3.4 - 5.0 [facility] Comment on above: Performed By: #### 2 89243 #### [facility],[address] [place] [address] 88627 Albumin/Globulin [Mass ratio] 0.7 {ratio} Low 0.9 - 1.6 [facility] Comment on above: Performed By: #### 2 39948 #### [facility],[address] [place] [address] 48545 ALK PHOS 73 U/L Normal 46 - 116 [facility] Comment on above: Performed By: #### 2 75061 #### [facility],[address] [place] [address] 44940 ALT [Catalytic activity/Vol] 21 U/L Normal 14 - 59 [facility] Comment on above: Performed By: #### 2 24205 #### [facility],[address] [place] [address] 02444 Anion gap [Moles/Vol] 17 mmol/L Normal 10 - 20 [facility] Comment on above: Performed By: #### 2 90901 #### [facility],[address] [place] [address] 40738 AST [Catalytic activity/Vol] 12 U/L Low 13 - 39 [facility] Comment on above: Performed By: #### 2 83427 #### [facility],[address] [place] [address] 31530 B/C RATIO 9 ratio Normal 0 - 30 [facility] Comment on above: Performed By: #### 2 20479 #### [facility],[address] [place] [address] 94791 Bilirubin [Mass/Vol] 0.7 mg/dL Normal 0.2 - 1.0 [facility] Comment on above: Performed By: #### 2 10309 #### [facility],[address] [place] [address] 88333 Calcium [Mass/Vol] 9.1 mg/dL Normal 8.5 - 10.1 [facility] Comment on above: Performed By: #### 2 69917 #### [facility],[address] [place] [address] 84257 Chloride [Moles/Vol] 98 mmol/L Normal 98 - 107 [facility] Comment on above: Performed By: #### 2 19314 #### [facility],[address] [place] [address] 60096 CMP with eGFR Normal [facility] Comment on above: Result Comment: COMP REHENSIVE METABOLIC PANEL Performed By: #### 2 42517 #### [facility],[address] [place] [address] 99176 CO2 [Moles/Vol] 23.6 mmol/L Normal 21.0 - 32.0 [facility] Comment on above: Performed By: #### 2 47444 #### [facility],[address] [place] [address] 91486 Creatinine [Mass/Vol] 1.10 mg/dL High 0.55 - 1.02 [facility] Comment on above: Performed By: #### 2 32095 #### [facility],[address] [place] [address] 06604 eGFR 58 ML/MINUTE Low 60 - 999 [facility] Comment on above: Performed By: #### 2 54472 #### [facility],[address] [place] [address] 90982 GFR/1.73 sq M.predicted among non-blacks MDRD (S/P/Bld) [Vol rate/Area] mL/min/{1.73_m2} Normal 60 - 999 [facility] Comment on above: Result Comment: ACCO RDING TO THE NATIONAL KIDNEY DISEASE EDUCATION PROGRAM(NKDE), A NORMAL eGFR IS A VALUE GREATER THAN OR EQUAL TO 60 ML/MIN/1.73 SQ METERS. CHRONIC KIDNEY DISEASE: <60mL/MIN/1.73 SQ METERS KIDNEY FAILURE: <15mL/MIN/1.73 SQ METERS THIS TEST SHOULD ONLY BE USED FOR PATIENTS 18 YEARS OF AGE AND OLDER. Performed By: #### 2 49387 #### [facility],[address] [place] [address] 92871 Globulin (S) [Mass/Vol] 5.1 g/dL High 1.5 - 3.8 [facility] Comment on above: Performed By: #### 2 82823 #### [facility],[address] [place] [address] 42521 Glucose [Mass/Vol] 191 mg/dL High 74 - 106 [facility] Comment on above: Performed By: #### 2 88938 #### [address] [address] Potassium [Moles/Vol] 3.7 mmol/L Normal 3.5 - 5.1 [facility] Comment on above: Performed By: #### 2 43501 #### [address] [address] Protein [Mass/Vol] 8.7 g/dL High 6.4 - 8.2 [facility] Comment on above: Performed By: #### 2 70929 #### [address] [address] Sodium [Moles/Vol] 135 mmol/L Low 136 - 145 [facility] Comment on above: Performed By: #### 2 05244 #### [facility],[address] [place] [address] 08197 Urea nitrogen [Mass/Vol] 10 mg/dL Normal 7 - 18 [facility] Comment on above: Performed By: #### 2 38182 #### [facility],[address] [place] [address] ABDOMEN/PELVIS [facility] 2022 CT ABDOMEN/PELVIS [place] [address] Patient: GHISLAINE GIVENSMarine Phone#: : 1990 Age: 32 Gender: F Pt. Type: ER Account: [id number] Location: 052 Ordering: GERALDINE KIRANER Exam Date: 01/17/2023/8:31 Family Phys: Charge Code: [id number] Physician: Carbon Order #: [id number] Dose#: PROCEDURE: CT ABDOMEN/PELVIS WITH CONTRAST COMPARISON: [facility], CT, ABDOMEN/PELVIS W CON, 01/24/2022, 18:58. [...] 32 Gender: F Pt. Type: ER Account: [id number] Location: 052 Ordering: GERALDINE JEROMEISINGER Exam Date: 01/17/2023/8:31 Family Phys: Charge Code: [id number] Physician: Carbon Order #: [id number] Dose#: OTHER: Negative. CONCLUSION: 1. UNDER FILLING VERSUS MUCOSAL THICKENING AT THE RECTOSIGMOID COLON. Dictated by: Cristy Penaloza MD on 01/17/2023 at 9:14 Approved by: Cristy Penaloza MD on 01/17/2023 at 9:19 Normal [facility] DRUG SCREEN URINE MEDICon AMPHETAMINES Negative Normal [facility] Comment on above: Performed By: #### 2 39708 #### [facility],[address] [place] [address] 93054 B-DIAZEPINES Negative [facility] Comment on above: Performed By: #### 2 06221 #### [facility],[address] [place] [address] 23087 BARBITURATES Negative [facility] Comment on above: Performed By: #### 2 91905 #### [facility],[address] [place] [address] 81919 COCAINE Negative [facility] Comment on above: Performed By: #### 2 22559 #### [facility],[address] [place] [address] 54076 DRUG SCREEN URINE MEDIC Normal [facility] Comment on above: Result Comment: DRUG SCREEN - URINE Performed By: #### 2 07080 #### [facility],[address] [place] [address] 05494 METHADONE Negative [facility] Comment on above: Performed By: #### 2 93294 #### [facility],[address] [place] [address] 63269 OPIATES Negative [facility] Comment on above: Performed By: #### 2 51437 #### [facility],[address] [place] [address] 69726 PCP Negative [facility] Comment on above: Performed By: #### 2 34678 #### [facility],[address] [place] [address] 57629 THC Positive [facility] Comment on above: Result Comment: ERASTO ENTS RECEIVING PROTON PUMP INHIBITORS MAY DEMONSTRATE FALSE POSITIVE THC/CANNABINOID RESULTS. AN ALTERNATIVE CONFIRMATORY METHOD SHOULD BE CONSIDERED TO VERIFY POSITIVE RESULTS. Performed By: #### 2 68824 #### [facility],[address] [place] [address] 15102 LIPASEon 01-17-2023 Lipase [Catalytic activity/Vol] 143.0 U/L Normal 73.0 - 393 [facility] Comment on above: Performed By: #### 2 43221 #### [facility],[address] [place] [address] SERUM QUALon 01-17 EXTERNAL QC DONE? YES Normal [facility] Comment on above: Performed By: #### 2 35052 #### [facility],[address] [place] [address] INTERNAL QC PASS Normal [facility] Comment on above: Performed By: #### 2 41093 #### [facility],[address] [place], [place] [id number] SER Negative Normal NEGATIVE [facility] Comment on above: Performed By: #### 2 99367 #### [facility],[address] [place], [place] [id number] URINALYSISon 01-17-2023 Amorphous NONE Normal [facility] Comment on above: Performed By: #### 2 77033 #### [facility],[address] [place] [address] Bacteria 1+ Normal [facility] Comment on above: Performed By: #### 2 48457 #### [facility],[address] [place], [place] [id number] Bilirubin Ql (U) Negative Normal NORMAL: NEGATIVE [facility] Comment on above: Performed By: #### 2 59303 #### [facility],[address] [place] [address] 83332 Casts NONE Normal [facility] Comment on above: Performed By: #### 2 52169 #### [facility],[address] [place] [address] 29652 Clarity (U) clear Normal NORMAL: CLEAR [facility] Comment on above: Performed By: #### 2 76867 #### [facility],[address] [place] [address] 28587 Color (U) p.yel Normal NORMAL: YELLOW [facility] Comment on above: Performed By: #### 2 45404 #### [facility],[address] [place] [address] 94362 Crystals LM Nom (Urine sed) NONE Normal [facility] Comment on above: Performed By: #### 2 51242 #### [facility],[address] [place], [place] [id number] Epi Cells MODERATE Normal [facility] Comment on above: Performed By: #### 2 87174 #### [facility],[address] [place] [address] 53981 Glucose Ql (U) 50 Abnormal NORMAL: NORMAL [facility] Comment on above: Performed By: #### 2 68294 #### [facility],[address] [place] [address] 93178 Hemoglobin Ql (U) Negative Normal NORMAL: NEGATIVE [facility] Comment on above: Performed By: #### 2 75594 #### [facility],[address] [place] [address] 10171 Ketone 15 Abnormal NORMAL: NEGATIVE [facility] Comment on above: Performed By: #### 2 40699 #### [facility],[address] [place] [address] 42444 Leukocytes 100 Abnormal NORMAL: NEGATIVE [facility] Comment on above: Performed By: #### 2 96523 #### [facility],[address] [place] [address] 69050 Mucous NONE Normal [facility] Comment on above: Performed By: #### 2 88144 #### [facility],[address] [place] [address] Nitrite Ql (U) Negative Normal NORMAL: NEGATIVE [facility] Comment on above: Performed By: #### 2 23942 #### [facility],[address] [place] [address] pH (U) 7 [pH] Normal NORMAL: 5.0-8.0 [facility] Comment on above: Performed By: #### 2 43566 #### [facility],[address] [place] [address] Protein Ql (U) Negative Normal NORMAL: NEGATIVE [facility] Comment on above: Performed By: #### 2 99667 #### [facility],[address] [place] [address] Rbc NONE Normal 0-3/hpf [facility] Comment on above: Performed By: #### 2 58402 #### [place] [address] [address] [place] 1.005 Low NORMAL: 1.010-1.030 [facility] Comment on above: Performed By: #### 2 60505 #### [facility],[address] [place] [address] Specimen Type UNSPECIFIED Normal [facility] Comment on above: Performed By: #### 2 70899 #### [facility],[address] [place] [address] Urinalysis dipstick W Reflex Microscopic panel (U) SEE BELOW Normal [facility] Comment on above: Result Comment: MICR OSCOPIC Performed By: #### 2 78473 #### [place] [address] Urobilinog NORM Normal NORMAL: NORMAL [facility] Comment on above: Performed By: #### 2 22723 #### [place] [address] Wbc 1-5 Normal 0-5/hpf [facility] Comment on above: Performed By: #### 2 86960 #### [facility],[address] [place] [address] 03531 Yeast NONE Normal [facility] Comment on above: Performed By: #### 2 77803 #### [facility],[address] [place] [address] 26529 Absolute lymphocyte countOrd ered By: Lexus Villatoro on 01-15-2023 Lymphocytes Auto (Unsp spec) [#/Vol] 3.20 10*3/uL 0.83-4.51 [facility] Basophil percentageOrdered B y: Lexus Villatoro on 01-15-2023 Basophil percentage 154 mg/dL 74-106 [facility] Basophil percentage 7.1 g/dL 6.4-8.2 [facility] Basophil percentage 0.60 mg/dL 0.20-1.00 [facility] Basophil percentage 136 mmol/L 136-145 [facility] Basophil percentage 3.1 mmol/L 3.5-5.1 [facility] Basophil percentage 105 mmol/L 98-107 [facility] Basophils (Bld) [#/Vol] 9.4 10*3/uL 4.4-11.0 [facility] Basophils (Bld) [#/Vol] 5.3 10*3/uL 2.0-7.7 [facility] Basophils/100 WBC (Bld) 0.3 % 0-1 [facility] Basophils/100 WBC (Bld) 56.4 % 47-70 [facility] Bilirubin [Mass/Vol] 0.60 mg/dL 0.20-1.00 [facility] Comment on above: For patients on eltr ombopag therapy, use of Dimension [place] TBIL is not recommended. Chloride [Moles/Vol] 105 mmol/L 98-107 [facility] Eosinophils/100 WBC (Bld) 0.3 % 0-5 [facility] Glucose [Mass/Vol] 154 mg/dL 74-106 [facility] Comment on above: Fasting Glucose resu lt greater than or equal to 126 mg/dL suggests DIABETES MELLITUS per A.D.A. criteria. Neutrophils (Bld) [#/Vol] 5.3 10*3/uL 2.0-7.7 [facility] Neutrophils/100 WBC (Bld) 56.4 % 47-70 [facility] Potassium [Moles/Vol] 3.1 mmol/L 3.5-5.1 [facility] Protein [Mass/Vol] 7.1 g/dL 6.4-8.2 [facility] Sodium [Moles/Vol] 136 mmol/L 136-145 [facility] WBC (Bld) [#/Vol] 9.4 10*3/uL 4.4-11.0 [facility] Blood erythrocytes count (nu mber/volume)Ordered By: Lexus Villatoro on 01-15-2023 RBC (Bld) [#/Vol] 4.43 10*6/uL 4.2-5.4 [facility] Blood hemoglobin measurement (mass/volume)Ordered By: Lexus Villatoro on 01-15-2023 Hemoglobin (Bld) [Mass/Vol] 11.7 g/dL 12.0-15.0 [facility] Blood lymphocytes/100 leukoc ytesOrdered By: Lexus Villatoro on 01-15-2023 Lymphocytes/100 WBC (Bld) 34.2 % 19-41 [facility] Blood monocytes/100 leukocyt esOrdered By: Lexus Villatoro on 01-15-2023 Monocytes/100 WBC (Bld) 8.2 % 0-10 [facility] Blood platelet mean volumeOr dered By: Lexus Villatoro on 01-15-2023 Platelet mean volume (Bld) [Entitic vol] 9.3 fL 6.2-12.0 [facility] Determination of erythrocyte mean corpuscular volume (MCV)Ordered By: Lexus Villatoro on 01-15-2023 MCV (RBC) [Entitic vol] 80.4 fL 81-99 [facility] Glucose Glucometer (BldC) [M ass/Vol]Ordered By: Lexus Villatoro on 01-15-2023 Glucose [Mass/Vol] 247 mg/dL 74-106 [facility] Comment on above: MANAGEMENT OF PATIEN T CARE PER NURSING PROTOCOL Hematocrit Auto (Bld) [Volum e fraction]Ordered By: Lexus Villatoro on 01-15-2023 Hematocrit (Bld) [Volume fraction] 35.6 % 37-47 [facility] - Chemistry and C hemistry - challengeOrdered By: Lexus Villatoro on 01-15-2023 ALP [Catalytic activity/Vol] 54 U/L 45-117 [facility] ALT [Catalytic activity/Vol] 14 U/L 13-56 [facility] CO2 [Moles/Vol] 26.0 mmol/L 21.0-32.0 [facility] Globulin (S) [Mass/Vol] 4.1 g/dL 2.2-4.2 [facility] Magnesium [Mass/Vol] 2.0 mg/dL 1.6-2.6 [facility] Urea nitrogen/Creatinine [Mass ratio] 6.6 mg/mg 10-20 [facility] - Hematology and Cell countsOrdered By: Lexus Villatoro on 01-15-2023 Erythrocyte distribution width (RBC) [Entitic vol] 40.1 fL 35.1-43.9 [facility] Erythrocyte distribution width (RBC) [Ratio] 13.8 % 11.6-14.6 [facility] Immature granulocytes/100 WBC (Bld) 0.600 % 0.0-0.9 [facility] Comment on above: IG% - Immature Granu locytes (promyelocytes, myelocytes and metamyelocytes) > 1% indicates that a LEFT SHIFT is Present. MCH (RBC) [Entitic mass] 26.4 pg 27.0-32.0 [facility] Nucleated RBC/100 WBC (Bld) [Ratio] 0 % 0-5 [facility] MCHC Auto (RBC) [Mass/Vol]Or dered By: Lexus Villatoro on 01-15-2023 MCHC (RBC) [Mass/Vol] 32.9 g/dL 32-36 [facility] No Panel InformationOrdered By: Lexus Villatoro on 01-15-2023 Estimated Creatinine Clearance Calc 84.62 ml/min [facility] Estimated GFR (MDRD) Amer 93 mL/min >60 [facility] Comment on above: GFR Calc Estimated GFR (MDRD) Non-Af Amer 77 mL/min >60 [facility] Comment on above: Non- GFR Calc Thyroid Stimulating Hormone (TSH) 2.30 uIU/mL 0.358-3.74 [facility] 26.4 pg 27.0-32.0 [facility] 13.8 % 11.6-14.6 [facility] 40.1 fl 35.1-43.9 [facility] 0.600 % 0.0-0.9 [facility] 0 % 0-5 [facility] 77 mL/min >60 [facility] 93 mL/min >60 [facility] 84.62 ml/min [facility] 6.6 RATIO 10-20 [facility] 4.1 g/dL 2.2-4.2 [facility] 54 U/L 45-117 [facility] 14 U/L 13-56 [facility] 2.0 mg/dL 1.6-2.6 [facility] 26.0 mmol/L 21.0-32.0 [facility] 2.30 uIU/mL 0.358-3.74 [facility] Platelets bldOrdered By: Porsche Villatoro on 01-15-2023 Platelets (Bld) [#/Vol] 361 10*3/uL 150-450 [facility] Serum or plasma albumin hussein urement (mass/volume)Ordered By: Lexus Villatoro on 01-15-2023 Albumin [Mass/Vol] 3.0 g/dL 3.2-5.0 [facility] Serum or plasma albumin/glob ulin mass ratioOrdered By: Lexus Villatoro on 01-15-2023 Albumin/Globulin [Mass ratio] 0.7 {ratio} 0.9-2.4 [facility] Serum or plasma calcium hussein urement (mass/volume)Ordered By: Lexus Villatoro on 01-15-2023 Calcium [Mass/Vol] 8.2 mg/dL 8.5-10.1 [facility] Serum or plasma creatinine m easurement [...] 01-15-2023 Urea nitrogen [Mass/Vol] 6 mg/dL 7-18 [facility] Thin prep Papanicolaou smear with manual screeningOrdered By: Lexus Villatoro on 01-15-2023 Thin prep Papanicolaou smear with manual screening 13 U/L 15-37 [facility] Thin prep Papanicolaou smear with manual screening 5 5-15 [facility] Bacteria identified Cx Nom ( U)Ordered By: Willie Dhillon on 01-14-2023 Culture, urine Positive [facility] Basophil percentageOrdered B y: Willie Dhillon on 01-14-2023 Basophil percentage 1.3 mmol/L 0.4-2.0 [facility] Lactate [Moles/Vol] 1.3 mmol/L 0.4-2.0 [facility] Basophil percentage 0-5 SEEN /hpf 0-5 [facility] Beta hCG serum qualOrdered B y: Willie Dhillon on 01-14-2023 Beta HCG ( test) Ql Negative [facility] Bilirubin Test strip Ql (U)O rdered By: Willie Dhillon on 01-14-2023 Bilirubin Ql (U) Negative Negative [facility] Culture, urineOrdered By: Reji March on 01-14-2023 Bacteria identified Cx Nom (U) Positive [facility] Ketones Test strip Ql (U)Ord ered By: Willie Dhillon on 01-14-2023 Ketones Ql (U) 5 mg/dl Negative [facility] Laboratory - Drug toxicology Ordered By: Lexus Villatoro on 01-14-2023 Amphetamines Ql (U) Negative <1000 ng/mL [facility] Benzodiazepines Ql (U) Negative < 200 ng/mL [facility] Cannabinoids Screen Ql (U) Positive < 50 ng/mL [facility] Cocaine Ql (U) Negative < 300 ng/mL [facility] Opiates Ql (U) Negative < 300 ng/mL [facility] Mucus LM Ql (Urine sed)Order ed By: Willie Dhillon on 01-14-2023 Mucus Ql (Urine sed) 0 SEEN /hpf [facility] Nitrite Test strip Ql (U)Ord ered By: Willie Dhillon on 01-14-2023 Nitrite Ql (U) Negative Negative [facility] No Panel InformationOrdered By: Lexus Villatoro on 01-14-2023 MDMA (Ecstasy) Screen Negative < 500 ng/mL [facility] Urine Barbiturates Screen Negative < 200 ng/mL [facility] Urine Drug Screen Comment [facility] Comment on above: CONFIRMATORY TESTING FOR [...] Urine Methadone Screen Negative < 300 ng/mL [facility] Negative < 300 ng/mL [facility] Positive < 50 ng/mL [facility] Protein Test strip Ql (U)Ord ered By: Willie Dhillon on 01-14-2023 Protein Ql (U) 15 mg/dl Negative [facility] Squamous epithelial cells de tection in urine sediment by light microscopyOrdered By: Willie Dhillon on 01-14-2023 Epithelial cells.squamous LM Ql (Urine sed) 0-5 SEEN /hpf 5-10 [facility] Urine blood detectionOrdered By: Willie Dhillon on 01-14-2023 RBC Ql (U) 10 /ul Negative [facility] RBC Ql (U) 0-5 SEEN /hpf 0-5 [facility] Urine clarityOrdered By: Heath Dhillon on 01-14-2023 Clarity (U) Clear Clear [facility] Urine color determinationOrd ered By: Willie Dhillon on 01-14-2023 Color (U) Yellow Yellow [facility] Urine glucose detectionOrder ed By: Willie Dhillon on 01-14-2023 Glucose Ql (U) 250 mg/dl Normal [facility] Urine leukocyte esterase det ection by dipstickOrdered By: Willie Dhillon on 01-14-2023 Leukocyte esterase Test strip Ql (U) 25 /ul Negative [facility] Urine pHOrdered By: Willie mo on 01-14-2023 pH (U) 8.0 [pH] 5.0 - 8.0 [facility] Urine phencyclidine (PCP) de tectionOrdered By: Lexus Villatoro on 01-14-2023 Phencyclidine Ql (U) Negative < 25 ng/mL [facility] Urine sediment bacteria coun t by microscopy (number/high power field)Ordered By: Willie Dhillon on 01-14-2023 Bacteria LM.HPF (Urine sed) [#/Area] RARE /hpf None Seen [facility] Urine specific gravity measu rementOrdered By: Willie Dhillon on 01-14-2023 Specific gravity (U) [Rel density] 1.015 1.002-1.030 [facility] Urobilinogen Auto test strip Ql (U)Ordered By: Willie Dhillon on 01-14-2023 Urobilinogen Ql (U) Normal mg/dl Normal [facility] Basophil percentageOrdered B y: Deann Guerrero on 01-13-2023 Basophil percentage 25-50 SEEN /hpf 0-5 [facility] Basophil percentage 235 mg/dL 74-106 [facility] Basophil percentage 137 mmol/L 136-145 [facility] Basophil percentage 3.2 mmol/L 3.5-5.1 [facility] Basophil percentage 107 mmol/L 98-107 [facility] Chloride [Moles/Vol] 107 mmol/L 98-107 [facility] Glucose [Mass/Vol] 235 mg/dL 74-106 [facility] Comment on above: Glucose result great er than or equal to 200 mg/dLsuggests DIABETES MELLITUS per A.D.A. criteria. Potassium [Moles/Vol] 3.2 mmol/L 3.5-5.1 [facility] Sodium [Moles/Vol] 137 mmol/L 136-145 [facility] Beta hCG serum qualOrdered B y: Deann Guerrero on 01-13-2023 Beta HCG ( test) Ql Negative [facility] Bilirubin Test strip Ql (U)O rdered By: Deann Guerrero on 01-13-2023 Bilirubin Ql (U) Negative Negative [facility] Ketones Test strip Ql (U)Ord ered By: Deann Guerrero on 01-13-2023 Ketones Ql (U) 15 mg/dl Negative [facility] Laboratory - Chemistry and C hemistry - challengeOrdered By: Deann Guerrero on 01-13-2023 CO2 [Moles/Vol] 23.0 mmol/L 21.0-32.0 [facility] Urea nitrogen/Creatinine [Mass ratio] 7.6 mg/mg - [facility] Mucus LM Ql (Urine sed)Order ed By: Deann Guerrero on 01-13-2023 Mucus Ql (Urine sed) 1+ /hpf [facility] Nitrite Test strip Ql (U)Ord ered By: Deann Guerrero on 01-13-2023 Nitrite Ql (U) Negative Negative [facility] No Panel InformationOrdered By: Deann Guerrero on 01-13-2023 Estimated Creatinine Clearance Calc 73.34 ml/min [facility] Estimated GFR (MDRD) Amer 79 mL/min >60 [facility] Comment on above: GFR Calc Estimated GFR (MDRD) Non-Af Amer 65 mL/min >60 [facility] Comment on above: Non- GFR Calc 65 mL/min >60 [facility] 79 mL/min >60 [facility] 73.34 ml/min [facility] 7.6 RATIO 04-30 [facility] 23.0 mmol/L 21.0-32.0 [facility] Protein Test strip Ql (U)Ord ered By: Deann Guerrero on 01-13-2023 Protein Ql (U) 30 mg/dl Negative [facility] Serum or plasma calcium hussein urement (mass/volume)Ordered By: Deann Guerrero on 01-13-2023 Calcium [Mass/Vol] 8.5 mg/dL 8.5-10.1 [facility] Serum or plasma creatinine m easurement [...] 01-13-2023 Urea nitrogen [Mass/Vol] 8 mg/dL 01-26 [facility] Squamous epithelial cells de tection in urine sediment by light microscopyOrdered By: Deann Guerrero on 01-13-2023 Epithelial cells.squamous LM Ql (Urine sed) 5-10 SEEN /hpf 5-10 [facility] Thin prep Papanicolaou smear with manual screeningOrdered By: Deann Guerrero on 01-13-2023 Thin prep Papanicolaou smear with manual screening 7 5-15 [facility] Urine blood detectionOrdered By: Deann Guerrero on 01-13-2023 RBC Ql (U) 10 /ul Negative [facility] RBC Ql (U) 0-5 SEEN /hpf 0-5 [facility] Urine clarityOrdered By: Sulema Guerrero on 01-13-2023 Clarity (U) Sl. Cloudy Clear [facility] Urine color determinationOrd ered By: Deann Guerrero on 01-13-2023 Color (U) Yellow Yellow [facility] Urine glucose detectionOrder ed By: Deann Guerrero on 01-13-2023 Glucose Ql (U) 250 mg/dl Normal [facility] Urine leukocyte esterase det ection by dipstickOrdered By: Deann Guerrero on 01-13-2023 Leukocyte esterase Test strip Ql (U) 500 /ul Negative [facility] Urine pHOrdered By: Deann Guerrero on 01-13-2023 pH (U) 6.0 [pH] 5.0 - 8.0 [facility] Urine sediment bacteria coun t by microscopy (number/high power field)Ordered By: Deann Guerrero on 01-13-2023 Bacteria LM.HPF (Urine sed) [#/Area] 1 /[HPF] None Seen [facility] Urine specific gravity measu rementOrdered By: Deann Guerrero on 01-13-2023 Specific gravity (U) [Rel density] 1.020 1.002-1.030 [facility] Urobilinogen Auto test strip Ql (U)Ordered By: Deann Guerrero on 01-13-2023 Urobilinogen Ql (U) 1 mg/dl Normal [facility] Absolute lymphocyte countOrd ered By: Perico Norman on 01-12-2023 Lymphocytes Auto (Unsp spec) [#/Vol] 1.80 10*3/uL 0.83-4.51 [facility] Basophil percentageOrdered B y: Fabricio Guevara on 01-12-2023 Basophil percentage 208 mg/dL 74-106 [facility] Basophil percentage 137 mmol/L 136-145 [facility] Basophil percentage 3.0 mmol/L 3.5-5.1 [facility] Basophil percentage 105 mmol/L 98-107 [facility] Chloride [Moles/Vol] 105 mmol/L 98-107 [facility] Glucose [Mass/Vol] 208 mg/dL 74-106 [facility] Comment on above: Glucose result great er than or equal to 200 mg/dLsuggests DIABETES MELLITUS per A.D.A. criteria. Potassium [Moles/Vol] 3.0 mmol/L 3.5-5.1 [facility] Sodium [Moles/Vol] 137 mmol/L 136-145 [facility] Basophil percentageOrdered B y: Perico Arjunsayra on 01-12-2023 Basophil percentage 267 mg/dL 74-106 [facility] Basophil percentage 7.8 g/dL 6.4-8.2 [facility] Basophil percentage 0.40 mg/dL 0.20-1.00 [facility] Basophil percentage 134 mmol/L 136-145 [facility] Basophil percentage 3.4 mmol/L 3.5-5.1 [facility] Basophil percentage 101 mmol/L 98-107 [facility] Basophils (Bld) [#/Vol] 12.4 10*3/uL 4.4-11.0 [facility] Basophils (Bld) [#/Vol] 9.9 10*3/uL 2.0-7.7 [facility] Basophils/100 WBC (Bld) 0.3 % 0-1 [facility] Basophils/100 WBC (Bld) 79.6 % 47-70 [facility] Basophils/100 WBC (Bld) 0.0 % 0-5 [facility] Bilirubin [Mass/Vol] 0.40 mg/dL 0.20-1.00 [facility] Comment on above: For patients on eltr ombopag therapy, use of Dimension [place] TBIL is not recommended. Chloride [Moles/Vol] 101 mmol/L 98-107 [facility] Eosinophils/100 WBC (Bld) 0.0 % 0-5 [facility] Glucose [Mass/Vol] 267 mg/dL 74-106 [facility] Comment on above: Glucose result great er than or equal to 200 mg/dLsuggests DIABETES MELLITUS per A.D.A. criteria. Neutrophils (Bld) [#/Vol] 9.9 10*3/uL 2.0-7.7 [facility] Neutrophils/100 WBC (Bld) 79.6 % 47-70 [facility] Potassium [Moles/Vol] 3.4 mmol/L 3.5-5.1 [facility] Protein [Mass/Vol] 7.8 g/dL 6.4-8.2 [facility] Sodium [Moles/Vol] 134 mmol/L 136-145 [facility] WBC (Bld) [#/Vol] 12.4 10*3/uL 4.4-11.0 [facility] Blood erythrocytes count (nu mber/volume)Ordered By: Perico Norman on 01-12-2023 RBC (Bld) [#/Vol] 4.62 10*6/uL 4.2-5.4 [facility] Blood hemoglobin measurement (mass/volume)Ordered By: Perico Norman on 01-12-2023 Hemoglobin (Bld) [Mass/Vol] 12.1 g/dL 12.0-15.0 [facility] Blood lymphocytes/100 leukoc ytesOrdered By: Perico Norman on 01-12-2023 Lymphocytes/100 WBC (Bld) 14.5 % 19-41 [facility] Blood monocytes/100 leukocyt esOrdered By: Perico Norman on 01-12-2023 Monocytes/100 WBC (Bld) 5.0 % 0-10 [facility] Blood platelet mean volumeOr dered By: Perico Norman on 01-12-2023 Platelet mean volume (Bld) [Entitic vol] 9.0 fL 6.2-12.0 [facility] Determination of erythrocyte mean corpuscular volume (MCV)Ordered By: Perico Norman on 01-12-2023 MCV (RBC) [Entitic vol] 81.0 fL 81-99 [facility] Direct bilirubinOrdered By: Perico Norman on 01-12-2023 Bilirubin.direct [Mass/Vol] 0.14 mg/dL 0.00-0.30 [facility] Hematocrit Auto (Bld) [Volum e fraction]Ordered By: Perico Norman on 01-12-2023 Hematocrit (Bld) [Volume fraction] 37.4 % 37-47 [facility] Laboratory - Chemistry and C hemistry - challengeOrdered By: Fabricio Guevara on 01-12-2023 CO2 [Moles/Vol] 26.0 mmol/L 21.0-32.0 [facility] Urea nitrogen/Creatinine [Mass ratio] 7.0 mg/mg 10-20 [facility] Laboratory - Chemistry and C hemistry - challengeOrdered By: Perico Norman on 01-12-2023 ALP [Catalytic activity/Vol] 68 U/L 45-117 [facility] ALT [Catalytic activity/Vol] 14 U/L 13-56 [facility] CO2 [Moles/Vol] 24.0 mmol/L 21.0-32.0 [facility] Globulin (S) [Mass/Vol] 4.5 g/dL 2.2-4.2 [facility] Lipase [Catalytic activity/Vol] 37 U/L 13-75 [facility] Comment on above: Please note:LIPASE r evised reference range effective 22. New Lipase methodology. Expected to produce lower values than the previous assay method. NEW Reference Range: 13 - 75 U/L Urea nitrogen/Creatinine [Mass ratio] 9.7 mg/mg 10-20 [facility] - Hematology and Cell countsOrdered By: Perico Norman on 01-12-2023 Erythrocyte distribution width (RBC) [Entitic vol] 38.9 fL 35.1-43.9 [facility] Erythrocyte distribution width (RBC) [Ratio] 13.7 % 11.6-14.6 [facility] Immature granulocytes/100 WBC (Bld) 0.600 % 0.0-0.9 [facility] Comment on above: IG% - Immature Granu locytes (promyelocytes, myelocytes and metamyelocytes) > 1% indicates that a LEFT SHIFT is Present. MCH (RBC) [Entitic mass] 26.2 pg 27.0-32.0 [facility] Nucleated RBC/100 W[facility] (Bld) [Ratio] 0 % 0[facility] [Mass/Vol]Or dered By: Perico Norman on 01-12-2023 MCHC (RBC) [Mass/Vol] 32.4 g/dL 32-36 [facility] No Panel InformationOrdered By: Fabricio Guevara on 01-12-2023 Estimated Creatinine Clearance Calc 77.01 ml/min [facility] Estimated GFR (MDRD) Amer 84 mL/min >60 [facility] Comment on above: GFR Calc Estimated GFR (MDRD) Non-Af Amer 69 mL/min >60 [facility] Comment on above: Non- GFR Calc 69 mL/min >60 [facility] 84 mL/min >60 [facility] 77.01 ml/min [facility] 7.0 RATIO 10-20 [facility] 26.0 mmol/L 21.0-32.0 [facility] No Panel InformationOrdered By: Perico Norman on 01-12-2023 Estimated Creatinine Clearance Calc 68.15 ml/min [facility] Estimated GFR (MDRD) Amer 72 mL/min >60 [facility] Comment on above: GFR Calc Estimated GFR (MDRD) Non-Af Amer 60 mL/min >60 [facility] Comment on above: Non- GFR Calc 26.2 pg 27.0-32.0 [facility] 13.7 % 11.6-14.6 [facility] 38.9 fl 35.1-43.9 [facility] 0.600 % 0.0-0.9 [facility] 0 % 0-5 [facility] 60 mL/min >60 [facility] 72 mL/min >60 [facility] 68.15 ml/min [facility] 9.7 RATIO 10-20 [facility] 4.5 g/dL 2.2-4.2 [facility] 37 U/L 13-75 [facility] 68 U/L 45-117 [facility] 14 U/L 13-56 [facility] 24.0 mmol/L 21.0-32.0 [facility] Platelets bldOrdered By: Bakari Norman on 01-12-2023 Platelets (Bld) [#/Vol] 352 10*3/uL 150-450 [facility] Serum or plasma albumin hussein urement (mass/volume)Ordered By: Perico Norman on 01-12-2023 Albumin [Mass/Vol] 3.3 g/dL 3.2-5.0 [facility] Serum or plasma calcium hussein urement (mass/volume)Ordered By: Fabricio Guevara on 01-12-2023 Calcium [Mass/Vol] 8.7 mg/dL 8.5-10.1 [facility] Serum or plasma calcium hussein urement (mass/volume)Ordered By: Perico Norman on 01-12-2023 Calcium [Mass/Vol] 9.0 mg/dL 8.5-10.1 [facility] Serum or plasma creatinine m easurement [...] on 01-12-2023 Urea nitrogen [Mass/Vol] 7 mg/dL 7- [facility] Serum or plasma urea nitroge n measurement (mass/volume)Ordered By: Perico Norman on 01-12-2023 Urea nitrogen [Mass/Vol] 11 mg/dL 7-18 [facility] Thin prep Papanicolaou smear with manual screeningOrdered By: Fabricio Guevara on 01-12-2023 Thin prep Papanicolaou smear with manual screening 6 5-15 [facility] Thin prep Papanicolaou smear with manual screeningOrdered By: Perico Norman on 01-12-2023 Thin prep Papanicolaou smear with manual screening 12 U/L 15-37 [facility] Thin prep Papanicolaou smear with manual screening 9 5-15 [facility] .Auto Diffon 01-10-2023 Basophil, Absolute 0.0 10 3/mcL Normal 0.0-0.2 [facility] ([place]) Comment on above: Performed By: #### A DIFF, GFR, MDW, CMP, ANEU, CBC, LIP #### [address] [address] Basophils/100 WBC (Bld) 0.2 % Normal 0.0-2.5 [facility] ([place]) Comment on above: Performed By: #### A DIFF, GFR, MDW, CMP, ANEU, CBC, LIP #### [address] [address] Eosinophil, Absolute 0.0 10 3/mcL Normal 0.0-0.4 [facility] ([place]) Comment on above: Performed By: #### A DIFF, GFR, MDW, CMP, ANEU, CBC, LIP #### [address] [address] Eosinophils/100 WBC (Bld) 0.1 % Normal 0.0-7.0 [facility] ([place]) Comment on above: Performed By: #### A DIFF, GFR, MDW, CMP, ANEU, CBC, LIP #### [address] [address] Lymphocyte, Absolute 2.7 10 3/mcL Normal 0.8-3.9 [facility] ([place]) Comment on above: Performed By: #### A DIFF, GFR, MDW, CMP, ANEU, CBC, LIP #### [address] [address] Lymphocytes/100 WBC (Bld) 17.3 % Normal 10.0-50.0 [facility] ([place]) Comment on above: Performed By: #### A DIFF, GFR, MDW, CMP, ANEU, CBC, LIP #### [address] [address] Monocyte, Absolute 0.9 10 3/mcL Normal 0.2-1.0 [facility] ([place]) Comment on above: Performed By: #### A DIFF, GFR, MDW, CMP, ANEU, CBC, LIP #### [address] [address] Monocytes/100 WBC (Bld) 5.7 % Normal 1.7-13.0 [facility] ([place]) Comment on above: Performed By: #### A DIFF, GFR, MDW, CMP, ANEU, CBC, LIP #### [address] [address] Neutrophils/100 WBC (Bld) 76.7 % Normal 37.0-80.0 [facility] ([place]) Comment on above: Performed By: #### A DIFF, GFR, MDW, CMP, ANEU, CBC, LIP #### [address] [address] .GFRon 01-10-2023 GFR 64 ml/min/1.73sqm Normal [facility] ([place]) Comment on above: Result Comment: GFR Population [...] GFR, MDW, CMP, ANEU, CBC, LIP #### [address] [address] GFR Non- 53 ml/min/1.73sqm Normal [facility] ([place]) Comment on above: Result Comment: GFR Population [...] GFR, MDW, CMP, ANEU, CBC, LIP #### [place] [id number] .MDWon 01-10-2023 Monocyte Distribution Width 14.44 Normal 0.00-20.00 [facility] ([place]) Comment on above: Result Comment: For ED adult patients suspected of sepsis, MDW<=20.0 does not rule out sepsis or risk of sepsis Performed By: #### A DIFF, GFR, MDW, CMP, ANEU, CBC, LIP #### [place] [id number] .NEUABSon 01-10-2023 Neutrophil, Absolute 11.9 10 3/mcL High 2.9-6.2 [facility] ([place]) Comment on above: Performed By: #### A DIFF, GFR, MDW, CMP, ANEU, CBC, LIP #### [place] [id number] .Urinalysis Microscopic (AO) on 01-10-2023 UA Bacteria Trace Abnormal [facility] ([place] Comment on above: Performed By: #### A DIFF, GFR, MDW, CMP, ANEU, CBC, LIP #### [place] [id number] UA RBC 0-5 Abnormal None Seen [facility] ([place] Comment on above: Performed By: #### A DIFF, GFR, MDW, CMP, ANEU, CBC, LIP #### [place] [phone] UA Squam Epithelial LOADED Abnormal None Seen [facility] ([place]) Comment on above: Performed By: #### A DIFF, GFR, MDW, CMP, ANEU, CBC, LIP #### [address] [address] UA WBC 0-5 Abnormal None Seen [facility] ([place] Comment on above: Performed By: #### A DIFF, GFR, MDW, CMP, ANEU, CBC, LIP #### [address] [address] UA Yeast Trace Abnormal [facility] ([place] Comment on above: Performed By: #### A DIFF, GFR, MDW, CMP, ANEU, CBC, LIP #### [place] [id number] CBCon 01-10-2023 Erythrocyte distribution width (RBC) [Ratio] 14.7 % High 11.5-14.5 [facility] ([place] Comment on above: Performed By: #### A DIFF, GFR, MDW, CMP, ANEU, CBC, LIP #### [place] [address] Hematocrit (Bld) [Volume fraction] 38.7 % Normal 37.0-47.0 [facility] ([place] Comment on above: Performed By: #### A DIFF, GFR, MDW, CMP, ANEU, CBC, LIP #### [address] [address] Hgb 12.9 G/dL Normal 12.0-16.0 [facility] ([place] Comment on above: Performed By: #### A DIFF, GFR, MDW, CMP, ANEU, CBC, LIP #### [address] [address] MCH (RBC) [Entitic mass] 25.7 pg Low 27.0-31.2 [facility] ([place] Comment on above: Performed By: #### A DIFF, GFR, MDW, CMP, ANEU, CBC, LIP #### [place] [address] MCHC 33.3 G/dL Normal 33.0-37.0 [facility] ([place] Comment on above: Performed By: #### A DIFF, GFR, MDW, CMP, ANEU, CBC, LIP #### [address] [address] MCV (RBC) [Entitic vol] 77.4 fL Low 80.0-94.0 [facility] ([place]) Comment on above: Performed By: #### A DIFF, GFR, MDW, CMP, ANEU, CBC, LIP #### [address] [address] Platelet 438 10 3/mcL High 130-400 [facility] ([place] Comment on above: Performed By: #### A DIFF, GFR, MDW, CMP, ANEU, CBC, LIP #### [address] [address] Platelet mean volume (Bld) [Entitic vol] 7.2 fL Low 7.4-10.4 [facility] ([place] Comment on above: Performed By: #### A DIFF, GFR, MDW, CMP, ANEU, CBC, LIP #### [address] [address] RBC 5.01 10 6/mcL Normal 4.20-5.40 [facility] ([place] Comment on above: Performed By: #### A DIFF, GFR, MDW, CMP, ANEU, CBC, LIP #### [address] [address] WBC 15.5 10 3/mcL High 4.6-10.8 [facility] ([place] Comment on above: Performed By: #### A DIFF, GFR, MDW, CMP, ANEU, CBC, LIP #### [address] [address] CMPon 01-10-2023 Albumin Level 3.9 G/dL Normal 3.5-5.0 [facility] ([place] Comment on above: Performed By: #### A DIFF, GFR, MDW, CMP, ANEU, CBC, LIP #### [address] [address] Albumin/Globulin [Mass ratio] 0.9 {ratio} Low 1.1-2.5 [facility] ([place] Comment on above: Performed By: #### A DIFF, GFR, MDW, CMP, ANEU, CBC, LIP #### [address] [address] ALP [Catalytic activity/Vol] 84 U/L Normal 40-135 [facility] ([place] Comment on above: Performed By: #### A DIFF, GFR, MDW, CMP, ANEU, CBC, LIP #### [place] [address] ALT [Catalytic activity/Vol] 17 U/L Normal 14-59 [facility] ([place] Comment on above: Performed By: #### A DIFF, GFR, MDW, CMP, ANEU, CBC, LIP #### [place] [address] AST [Catalytic activity/Vol] 13 U/L Normal 10-40 [facility]ly [facility] ([place]) Comment on above: Performed By: #### A DIFF, GFR, MDW, CMP, ANEU, CBC, LIP #### [address] [address] Bili Total 0.6 mg/dL Normal 0.2-1.0 [facility] ([place]) Comment on above: Result Comment: Use of this assay is not recommended for patients undergoing treatment with eltrombopag due to the potential for falsely elevated results. Performed By: #### A DIFF, GFR, MDW, CMP, ANEU, CBC, LIP #### [address] [address] BUN/Creatinine Ratio 11 ratio Normal 7-27 [facility] ([place]) Comment on above: Performed By: #### A DIFF, GFR, MDW, CMP, ANEU, CBC, LIP #### [place] [address] Calcium [Mass/Vol] 9.4 mg/dL Normal 8.4-10.2 [facility] ([place]) Comment on above: Performed By: #### A DIFF, GFR, MDW, CMP, ANEU, CBC, LIP #### [place] [id number] Chloride [Moles/Vol] 99 mmol/L Normal 98-107 [facility] ([place]) Comment on above: Performed By: #### A DIFF, GFR, MDW, CMP, ANEU, CBC, LIP #### [address] [address] CO2 [Moles/Vol] 22 mmol/L Normal 22-29 [facility] ([place]) Comment on above: Performed By: #### A DIFF, GFR, MDW, CMP, ANEU, CBC, LIP #### [address] [address] Creatinine [Mass/Vol] 1.20 mg/dL High 0.55-1.02 [facility] ([place]) Comment on above: Performed By: #### A DIFF, GFR, MDW, CMP, ANEU, CBC, LIP #### [address] [address] Electrolyte Balance 17.0 mEq/L High 4.0-15.0 [facility] ([place]) Comment on above: Performed By: #### A DIFF, GFR, MDW, CMP, ANEU, CBC, LIP #### [address] [address] Globulin 4.4 G/dL Normal [facility] ([place]) Comment on above: Performed By: #### A DIFF, GFR, MDW, CMP, ANEU, CBC, LIP #### [address] [address] Glucose [Mass/Vol] 270 mg/dL High 70-105 [facility] ([place]) Comment on above: Performed By: #### A DIFF, GFR, MDW, CMP, ANEU, CBC, LIP #### [address] [address] Potassium [Moles/Vol] 3.4 mmol/L Low 3.5-5.1 [facility] ([place]) Comment on above: Performed By: #### A DIFF, GFR, MDW, CMP, ANEU, CBC, LIP #### [address] [address] Sodium [Moles/Vol] 138 mmol/L Normal 136-145 [facility] ([place]) Comment on above: Performed By: #### A DIFF, GFR, MDW, CMP, ANEU, CBC, LIP #### [place] [id number] [place], [place] [address] Total Protein 8.3 G/dL High 6.4-8.2 [facility] ([place]) Comment on above: Performed By: #### A DIFF, GFR, MDW, CMP, ANEU, CBC, LIP #### [place] [id number] [place], [place] [address] Urea nitrogen [Mass/Vol] 13 mg/dL Normal 7-18 [facility] ([place]) Comment on above: Performed By: #### A DIFF, GFR, MDW, CMP, ANEU, CBC, LIP #### [place] [id number] [place], [place] [address] CT ABD/PELVIS W/ IV CONTRAST ONLYon 01-10-2023 [...] 01/10/2023 4:59:31 PM Ordering Provider: ESSIE DOWNS [facility] ([place]) LABORATORYOrdered By: SYSTEM SYSTEM on 01-10-2023 Albumin [...] AO Auto Urine SS Color (U) Yellow (7/2/23 2:11 PM) Invalid Interpretation Code AO Auto [...] Lipase Level 39 U/L Normal 16-77 [facility] ([place]) Comment on above: Performed By: #### A DIFF, GFR, MDW, CMP, ANEU, CBC, LIP #### [address] [address] PREGUon 01-10-2023 HCG ( test) Ql (U) Negative Normal [facility] ([place]) Comment on above: Performed By: #### A DIFF, GFR, MDW, CMP, ANEU, CBC, LIP #### [address] [address] test (u) int Not detected Invalid Interpretation Code [facility] ([place]) Comment on above: Performed By: #### A DIFF, GFR, MDW, CMP, ANEU, CBC, LIP #### [address] [address] UAon 01-10-2023 Color (U) Yellow Normal [facility] ([place]) Comment on above: Performed By: #### A DIFF, GFR, MDW, CMP, ANEU, CBC, LIP #### [address] [address] Glucose (U) [Mass/Vol] 500 mg/dL Abnormal Negative [facility] ([place]) Comment on above: Performed By: #### A DIFF, GFR, MDW, CMP, ANEU, CBC, LIP #### [address] [address] Ketones Ql (U) >=160 Abnormal Negative [facility] ([place]) Comment on above: Performed By: #### A DIFF, GFR, MDW, CMP, ANEU, CBC, LIP #### [address] [address] UA Appear Slightly Cloudy Abnormal Clear [facility] ([place]) Comment on above: Performed By: #### A DIFF, GFR, MDW, CMP, ANEU, CBC, LIP #### [address] [address] UA Blood Negative Normal Negative [facility] ([place]) Comment on above: Performed By: #### A DIFF, GFR, MDW, CMP, ANEU, CBC, LIP #### [address] [address] UA Leuk Est Negative Normal Negative [facility] ([place]) Comment on above: Performed By: #### A DIFF, GFR, MDW, CMP, ANEU, CBC, LIP #### [address] [address] UA Nitrite Negative Normal Negative [facility] ([place]) Comment on above: Performed By: #### A DIFF, GFR, MDW, CMP, ANEU, CBC, LIP #### [address] [address] UA pH 8.5 Abnormal 5.0 - 8.0 [facility] ([place]) Comment on above: Performed By: #### A DIFF, GFR, MDW, CMP, ANEU, CBC, LIP #### [address] [address] UA Protein 100 mg/dL Abnormal Negative [facility] ([place]) Comment on above: Performed By: #### A DIFF, GFR, MDW, CMP, ANEU, CBC, LIP #### [address] [address] UA Spec Grav 1.020 Normal 1.015-1.025 [facility] ([place]) Comment on above: Performed By: #### A DIFF, GFR, MDW, CMP, ANEU, CBC, LIP #### [address] [address] UA Specimen Type Clean Catch Normal [facility] ([place]) Comment on above: Performed By: #### A DIFF, GFR, MDW, CMP, ANEU, CBC, LIP #### [address] [address] UA Urobilinogen 0.2 E.U./dL Normal 0.2-1.0 [facility] ([place]) Comment on above: Performed By: #### A DIFF, GFR, MDW, CMP, ANEU, CBC, LIP #### [address] [address] Urobilinogen (U) [Mass/Vol] Negative Normal Negative [facility] ([place]) Comment on above: Performed By: #### A DIFF, GFR, MDW, CMP, ANEU, CBC, LIP #### [address] [address] Absolute lymphocyte countOrd ered By: Carlos Calvo on 01-09-2023 Lymphocytes Auto (Unsp spec) [#/Vol] 2.47 10*3/uL 0.83-4.51 [facility] Basophil percentageOrdered B y: Carlos Calvo on 01-09-2023 Basophil percentage 0 SEEN /hpf 0-5 [facility] Basophil percentage 247 mg/dL 74-106 [facility] Basophil percentage 8.7 g/dL 6.4-8.2 [facility] Basophil percentage 0.60 mg/dL 0.20-1.00 [facility] Basophil percentage 134 mmol/L 136-145 [facility] Basophil percentage 4.0 mmol/L 3.5-5.1 [facility] Basophil percentage 101 mmol/L 98-107 [facility] Basophils (Bld) [#/Vol] 10.7 10*3/uL 4.4-11.0 [facility] Basophils (Bld) [#/Vol] 7.6 10*3/uL 2.0-7.7 [facility] Basophils/100 WBC (Bld) 0.5 % 0-1 [facility] Basophils/100 WBC (Bld) 70.5 % 47-70 [facility] Basophils/100 WBC (Bld) 0.2 % 0-5 [facility] Bilirubin [Mass/Vol] 0.60 mg/dL 0.20-1.00 [facility] Comment on above: For patients on eltr ombopag therapy, use of Dimension [place] TBIL is not recommended. Chloride [Moles/Vol] 101 mmol/L 98-107 [facility] Eosinophils/100 WBC (Bld) 0.2 % 0-5 [facility] Glucose [Mass/Vol] 247 mg/dL 74-106 [facility] Comment on above: Glucose result great er than or equal to 200 mg/dLsuggests DIABETES MELLITUS per A.D.A. criteria. Neutrophils (Bld) [#/Vol] 7.6 10*3/uL 2.0-7.7 [facility] Neutrophils/100 WBC (Bld) 70.5 % 47-70 [facility] Potassium [Moles/Vol] 4.0 mmol/L 3.5-5.1 [facility] Comment on above: Slight Hemolysis, Re sult may be falsely increased. Protein [Mass/Vol] 8.7 g/dL 6.4-8.2 [facility] Sodium [Moles/Vol] 134 mmol/L 136-145 [facility] WBC (Bld) [#/Vol] 10.7 10*3/uL 4.4-11.0 [facility] Bilirubin Test strip Ql (U)O rdered By: Carlos Calvo on 01-09-2023 Bilirubin Ql (U) Negative Negative [facility] Blood erythrocytes count (nu mber/volume)Ordered By: Carlos Calvo on 01-09-2023 RBC (Bld) [#/Vol] 5.01 10*6/uL 4.2-5.4 [facility] Blood hemoglobin measurement (mass/volume)Ordered By: Carlos Calvo on 01-09-2023 Hemoglobin (Bld) [Mass/Vol] 13.0 g/dL 12.0-15.0 [facility] Blood lymphocytes/100 leukoc ytesOrdered By: Carlos Calvo on 01-09-2023 Lymphocytes/100 WBC (Bld) 23.0 % 19-41 [facility] Blood monocytes/100 leukocyt esOrdered By: Carlos Calvo on 01-09-2023 Monocytes/100 WBC (Bld) 4.9 % 0-10 [facility] Blood platelet mean volumeOr dered By: Carlos Calvo on 01-09-2023 Platelet mean volume (Bld) [Entitic vol] 9.5 fL 6.2-12.0 [facility] Determination of erythrocyte mean corpuscular volume (MCV)Ordered By: Carlos Calvo on 01-09-2023 MCV (RBC) [Entitic vol] 79.8 fL 81-99 [facility] Glucose Glucometer (BldC) [M ass/Vol]Ordered By: Deann Guerrero on 01-09-2023 Glucose [Mass/Vol] 254 mg/dL 74-106 [facility] Comment on above: MANAGEMENT OF PATIEN T CARE PER NURSING PROTOCOL Hematocrit Auto (Bld) [Volum e fraction]Ordered By: Carlos Calvo on 01-09-2023 Hematocrit (Bld) [Volume fraction] 40.0 % 37-47 [facility] Ketones Test strip Ql (U)Ord ered By: Carlos Calvo on 01-09-2023 Ketones Ql (U) 50 mg/dl Negative [facility] Laboratory - Chemistry and C hemistry - challengeOrdered By: Carlos Calvo on 01-09-2023 HCG ( test) Ql (U) Negative [facility] Comment on above: Very dilute urine sp ecimens, as indicated by a low specificgravity, may not contain product sales representative levels of hCG. If is still suspected, a first morning urinespecimen should be collected 48 hours later and tested. ALP [Catalytic activity/Vol] 85 U/L 45-117 [facility] ALT [Catalytic activity/Vol] 20 U/L 13-56 [facility] CO2 [Moles/Vol] 21.0 mmol/L 21.0-32.0 [facility] Globulin (S) [Mass/Vol] 5.2 g/dL 2.2-4.2 [facility] Lipase [Catalytic activity/Vol] 38 U/L 13-75 [facility] Comment on above: Please note:LIPASE r evised reference range effective 22. New Lipase methodology. Expected to produce lower values than the previous assay method. NEW Reference Range: 13 - 75 U/L Urea nitrogen/Creatinine [Mass ratio] 7.9 mg/mg 10-20 [facility] Laboratory - Hematology and Cell countsOrdered By: Carlos Calvo on 01-09-2023 Erythrocyte distribution width (RBC) [Entitic vol] 38.3 fL 35.1-43.9 [facility] Erythrocyte distribution width (RBC) [Ratio] 13.4 % 11.6-14.6 [facility] Immature granulocytes/100 WBC (Bld) 0.900 % 0.0-0.9 [facility] Comment on above: IG% - Immature Granu locytes (promyelocytes, myelocytes and metamyelocytes) > 1% indicates that a LEFT SHIFT is Present. MCH (RBC) [Entitic mass] 25.9 pg 27.0-32.0 [facility] Nucleated RBC/100 WBC (Bld) [Ratio] 0 % 0-5 [facility] MCHC Auto (RBC) [Mass/Vol]Or dered By: Carlos Calvo on 01-09-2023 MCHC (RBC) [Mass/Vol] 32.5 g/dL 32-36 [facility] Mucus LM Ql (Urine sed)Order ed By: Carlos Calvo on 01-09-2023 Mucus Ql (Urine sed) 0 SEEN /hpf [facility] Nitrite Test strip Ql (U)Ord ered By: Carlos Calvo on 01-09-2023 Nitrite Ql (U) Negative Negative [facility] No Panel InformationOrdered By: Carlos Calvo on 01-09-2023 Negative [facility] Estimated Creatinine Clearance Calc 67.55 ml/min [facility] Estimated GFR (MDRD) Amer 72 mL/min >60 [facility] Comment on above: GFR Calc Estimated GFR (MDRD) Non-Af Amer 59 mL/min >60 [facility] Comment on above: Non- GFR Calc 25.9 pg 27.0-32.0 [facility] 13.4 % 11.6-14.6 [facility] 38.3 fl 35.1-43.9 [facility] 0.900 % 0.0-0.9 [facility] 0 % 0-5 [facility] 59 mL/min >60 [facility] 72 mL/min >60 [facility] 67.55 ml/min [facility] 7.9 RATIO 10-20 [facility] 5.2 g/dL 2.2-4.2 [facility] 38 U/L 13-75 [facility] 85 U/L 45-117 [facility] 20 U/L 13-56 [facility] 21.0 mmol/L 21.0-32.0 [facility] Platelets bldOrdered By: Analia Calvo on 01-09-2023 Platelets (Bld) [#/Vol] 397 10*3/uL 150-450 [facility] Protein Test strip Ql (U)Ord ered By: Carlos Calvo on 01-09-2023 Protein Ql (U) 15 mg/dl Negative [facility] Serum or plasma albumin hussein urement (mass/volume)Ordered By: Carlos Calvo on 01-09-2023 Albumin [Mass/Vol] 3.5 g/dL 3.2-5.0 [facility] Serum or plasma albumin/glob ulin mass ratioOrdered By: Carlos Calvo on 01-09-2023 Albumin/Globulin [Mass ratio] 0.7 {ratio} 0.9-2.4 [facility] Serum or plasma calcium hussein urement (mass/volume)Ordered By: Carlos Calvo on 01-09-2023 Calcium [Mass/Vol] 9.5 mg/dL 8.5-10.1 [facility] Serum or plasma creatinine m easurement [...] 01-09-2023 Urea nitrogen [Mass/Vol] 9 mg/dL 7-18 [facility] Squamous epithelial cells de tection in urine sediment by light microscopyOrdered By: Carlos Calvo on 01-09-2023 Epithelial cells.squamous LM Ql (Urine sed) 5-10 SEEN /hpf 5-10 [facility] Thin prep Papanicolaou smear with manual screeningOrdered By: Carlos Calvo on 01-09-2023 Thin prep Papanicolaou smear with manual screening 19 U/L 15-37 [facility] Comment on above: Slight Hemolysis, Re sult may be falsely increased. Thin prep Papanicolaou smear with manual screening 12 5-15 [facility] Urine blood detectionOrdered By: Carlos Calvo on 01-09-2023 RBC Ql (U) 10 /ul Negative [facility] RBC Ql (U) 0 SEEN /hpf 0-5 [facility] Urine clarityOrdered By: Analia Calvo on 01-09-2023 Clarity (U) Clear Clear [facility] Urine color determinationOrd ered By: Carlos Calvo on 01-09-2023 Color (U) Yellow Yellow [facility] Urine glucose detectionOrder ed By: Carlos Calvo on 01-09-2023 Glucose Ql (U) 1000 mg/dl Normal [facility] Urine leukocyte esterase det ection by dipstickOrdered By: Carlos Calvo on 01-09-2023 Leukocyte esterase Test strip Ql (U) 25 /ul Negative [facility] Urine pHOrdered By: Carlos mclain on 01-09-2023 pH (U) 8.0 [pH] 5.0 - 8.0 [facility] Urine sediment bacteria coun t by microscopy (number/high power field)Ordered By: Carlos Calvo on 01-09-2023 Bacteria LM.HPF (Urine sed) [#/Area] 0 /[HPF] None Seen [facility] Urine specific gravity measu rementOrdered By: Carlos Calvo on 01-09-2023 Specific gravity (U) [Rel density] 1.015 1.002-1.030 [facility] Urobilinogen Auto test strip Ql (U)Ordered By: Carlos Calvo on 01-09-2023 Urobilinogen Ql (U) Normal mg/dl Normal [facility] Absolute lymphocyte countOrd ered By: Poli Barfield on 01-07-2023 Lymphocytes Auto (Unsp spec) [#/Vol] 3.48 10*3/uL 0.83-4.51 [facility] Basophil percentageOrdered B y: Poli Barfield on 01-07-2023 Basophil percentage 202 mg/dL 74-106 [facility] Basophil percentage 135 mmol/L 136-145 [facility] Basophil percentage 3.8 mmol/L 3.5-5.1 [facility] Basophil percentage 102 mmol/L 98-107 [facility] Basophils (Bld) [#/Vol] 9.0 10*3/uL 4.4-11.0 [facility] Basophils (Bld) [#/Vol] 4.8 10*3/uL 2.0-7.7 [facility] Basophils/100 WBC (Bld) 0.4 % 0-1 [facility] Basophils/100 WBC (Bld) 53.2 % 47-70 [facility] Basophils/100 WBC (Bld) 1.0 % 0-5 [facility] Chloride [Moles/Vol] 102 mmol/L 98-107 [facility] Eosinophils/100 WBC (Bld) 1.0 % 0-5 [facility] Glucose [Mass/Vol] 202 mg/dL 74-106 [facility] Comment on above: Glucose result great er than or equal to 200 mg/dLsuggests DIABETES MELLITUS per A.D.A. criteria. Neutrophils (Bld) [#/Vol] 4.8 10*3/uL 2.0-7.7 [facility] Neutrophils/100 WBC (Bld) 53.2 % 47-70 [facility] Potassium [Moles/Vol] 3.8 mmol/L 3.5-5.1 [facility] Sodium [Moles/Vol] 135 mmol/L 136-145 [facility] WBC (Bld) [#/Vol] 9.0 10*3/uL 4.4-11.0 [facility] Blood erythrocytes count (nu mber/volume)Ordered By: Poli Barfield on 01-07-2023 RBC (Bld) [#/Vol] 4.92 10*6/uL 4.2-5.4 [facility] Blood hemoglobin measurement (mass/volume)Ordered By: Poli Barfield on 01-07-2023 Hemoglobin (Bld) [Mass/Vol] 12.7 g/dL 12.0-15.0 [facility] Blood lymphocytes/100 leukoc ytesOrdered By: Poli Barfield on 01-07-2023 Lymphocytes/100 WBC (Bld) 38.5 % 19-41 [facility] Blood monocytes/100 leukocyt esOrdered By: Poli Barfield on 01-07-2023 Monocytes/100 WBC (Bld) 5.9 % 0-10 [facility] Blood platelet mean volumeOr dered By: Poli Barfield on 01-07-2023 Platelet mean volume (Bld) [Entitic vol] 9.1 fL 6.2-12.0 [facility] Determination of erythrocyte mean corpuscular volume (MCV)Ordered By: Poli Barfield on 01-07-2023 MCV (RBC) [Entitic vol] 79.7 fL 81-99 [facility] Glucose Glucometer (BldC) [M ass/Vol]Ordered By: Poli Barfield on 01-07-2023 Glucose [Mass/Vol] 206 mg/dL 74-106 [facility] Comment on above: MANAGEMENT OF PATIEN T CARE PER NURSING PROTOCOL Hematocrit Auto (Bld) [Volum e fraction]Ordered By: Poli Barfield on 01-07-2023 Hematocrit (Bld) [Volume fraction] 39.2 % 37-47 [facility] - Chemistry and C hemistry - challengeOrdered By: Poli Barfield on 01-07-2023 HCG ( test) Ql (U) Negative [facility] Comment on above: Very dilute urine sp ecimens, as indicated by a low specificgravity, may not contain product sales representative levels of hCG. If is still suspected, a first morning urinespecimen should be collected 48 hours later and tested. CO2 [Moles/Vol] 24.0 mmol/L 21.0-32.0 [facility] Urea nitrogen/Creatinine [Mass ratio] 8.9 mg/mg 10-20 [facility] - Drug toxicology Ordered By: Poli Barfield on 01-07-2023 Amphetamines Ql (U) Negative <1000 ng/mL [facility] Benzodiazepines Ql (U) Negative < 200 ng/mL [facility] Cannabinoids Screen Ql (U) Positive < 50 ng/mL [facility] Cocaine Ql (U) Negative < 300 ng/mL [facility] Opiates Ql (U) Negative < 300 ng/mL [facility] - Hematology and Cell countsOrdered By: Poli Barfield on 01-07-2023 Erythrocyte distribution width (RBC) [Entitic vol] 38.9 fL 35.1-43.9 [facility] Erythrocyte distribution width (RBC) [Ratio] 13.5 % 11.6-14.6 [facility] Immature granulocytes/100 WBC (Bld) 1.000 % 0.0-0.9 [facility] Comment on above: IG% - Immature Granu locytes (promyelocytes, myelocytes and metamyelocytes) > 1% indicates that a LEFT SHIFT is Present. MCH (RBC) [Entitic mass] 25.8 pg 27.0-32.0 [facility] Nucleated RBC/100 WBC (Bld) [Ratio] 0 % 0-5 [facility] MCHC Auto (RBC) [Mass/Vol]Or dered By: Poli Barfield on 01-07-2023 MCHC (RBC) [Mass/Vol] 32.4 g/dL 32-36 [facility] No Panel InformationOrdered By: Poli Barfield on 01-07-2023 MDMA (Ecstasy) Screen Positive < 500 ng/mL [facility] Urine Barbiturates Screen Negative < 200 ng/mL [facility] Urine Drug Screen Comment [facility] Comment on above: CONFIRMATORY TESTING FOR [...] Methadone Screen Negative < 300 ng/mL [facility] Negative < 300 ng/mL [facility] Positive < 50 ng/mL [facility] Estimated Creatinine Clearance Calc 68.76 ml/min [facility] Estimated GFR (MDRD) Amer 73 mL/min >60 [facility] Comment on above: GFR Calc Estimated GFR (MDRD) Non-Af Amer 60 mL/min >60 [facility] Comment on above: Non- GFR Calc 25.8 pg 27.0-32.0 [facility] 13.5 % 11.6-14.6 [facility] 38.9 fl 35.1-43.9 [facility] 1.000 % 0.0-0.9 [facility] 0 % 0-5 [facility] 60 mL/min >60 [facility] 73 mL/min >60 [facility] 68.76 ml/min [facility] 8.9 RATIO 10-20 [facility] 24.0 mmol/L 21.0-32.0 [facility] Platelets bldOrdered By: Devon Barfield on 01-07-2023 Platelets (Bld) [#/Vol] 380 10*3/uL 150-450 [facility] Serum or plasma calcium hussein urement (mass/volume)Ordered By: Poli Barfield on 01-07-2023 Calcium [Mass/Vol] 9.0 mg/dL 8.5-10.1 [facility] Serum or plasma creatinine m easurement [...] 01-07-2023 Urea nitrogen [Mass/Vol] 10 mg/dL 7-18 [facility] Thin prep Papanicolaou smear with manual screeningOrdered By: Poli Barfield on 01-07-2023 Thin prep Papanicolaou smear with manual screening 9 5-15 [facility] Urine phencyclidine (PCP) de tectionOrdered By: Poli Barfield on 01-07-2023 Phencyclidine Ql (U) Negative < 25 ng/mL [facility] Basophil percentageOrdered B y: Amy Solorzano on 11-25-2022 Basophil percentage 493 mg/dL 74-106 [facility] Basophil percentage 8.0 g/dL 6.4-8.2 [facility] Basophil percentage 0.20 mg/dL 0.20-1.00 [facility] Basophil percentage 130 mmol/L 136-145 [facility] Basophil percentage 4.3 mmol/L 3.5-5.1 [facility] Basophil percentage 99 mmol/L 98-107 [facility] Basophils (Bld) [#/Vol] 8.2 10*3/uL 4.4-11.0 [facility] Bilirubin [Mass/Vol] 0.20 mg/dL 0.20-1.00 [facility] Comment on above: For patients on eltr ombopag therapy, use of Dimension [place] TBIL is not recommended. Chloride [Moles/Vol] 99 mmol/L 98-107 [facility] Glucose [Mass/Vol] 493 mg/dL 74-106 [facility] Comment on above: Critical Result(s) C alled at: 11:44:33 11/25/2022 by: NICOLE FRANKS TO GHISLAINE MCQUEEN. Results read back by same.Glucose result greater than or equal to 200 mg/dLsuggests DIABETES MELLITUS per A.D.A. criteria. Potassium [Moles/Vol] 4.3 mmol/L 3.5-5.1 [facility] Protein [Mass/Vol] 8.0 g/dL 6.4-8.2 [facility] Sodium [Moles/Vol] 130 mmol/L 136-145 [facility] WBC (Bld) [#/Vol] 8.2 10*3/uL 4.4-11.0 [facility] Blood erythrocytes count (nu mber/volume)Ordered By: Amy Solorzano on 11-25-2022 RBC (Bld) [#/Vol] 4.74 10*6/uL 4.2-5.4 [facility] Blood hemoglobin measurement (mass/volume)Ordered By: Amy Solorzano on 11-25-2022 Hemoglobin (Bld) [Mass/Vol] 12.5 g/dL 12.0-15.0 [facility] Blood platelet mean volumeOr dered By: Amy Solorzano on 11-25-2022 Platelet mean volume (Bld) [Entitic vol] 9.5 fL 6.2-12.0 [facility] Determination of erythrocyte mean corpuscular volume (MCV)Ordered By: Amy Solorzano on 11-25-2022 MCV (RBC) [Entitic vol] 80.2 fL 81-99 [facility] Hematocrit Auto (Bld) [Volum e fraction]Ordered By: Amy Solorzano on 11-25-2022 Hematocrit (Bld) [Volume fraction] 38.0 % 37-47 [facility] - Chemistry and C hemistry - challengeOrdered By: Amy Solorzano on 11-25-2022 ALP [Catalytic activity/Vol] 110 U/L 45-117 [facility] ALT [Catalytic activity/Vol] 26 U/L 13-56 [facility] [facility] CO2 [Moles/Vol] 19.0 mmol/L 21.0-32.0 [facility] Globulin (S) [Mass/Vol] 5.0 g/dL 2.2-4.2 [facility] Urea nitrogen/Creatinine [Mass ratio] 11.3 mg/mg 10-20 [facility] Laboratory - Hematology and Cell countsOrdered By: Amy Solorzano on 11-25-2022 Erythrocyte distribution width (RBC) [Entitic vol] 40.1 fL 35.1-43.9 [facility] Erythrocyte distribution width (RBC) [Ratio] 13.9 % 11.6-14.6 [facility] MCH (RBC) [Entitic mass] 26.4 pg 27.0-32.0 [facility] MCHC Auto (RBC) [Mass/Vol]Or dered By: Amy Solorzano on 11-25-2022 MCHC (RBC) [Mass/Vol] 32.9 g/dL 32-36 [facility] No Panel InformationOrdered By: Amy Solorzano on 11-25-2022 Estimated GFR (MDRD) Amer 71 mL/min >60 [facility] Comment on above: GFR Calc Estimated GFR (MDRD) Non-Af Amer 59 mL/min >60 [facility] Comment on above: Non- GFR Calc 26.4 pg 27.0-32.0 [facility] 13.9 % 11.6-14.6 [facility] 40.1 fl 35.1-43.9 [facility] 59 mL/min >60 [facility] 71 mL/min >60 [facility] 11.3 RATIO 10-20 [facility] 5.0 g/dL 2.2-4.2 [facility] 110 U/L 45-117 [facility] 26 U/L 13-56 [facility] 19.0 mmol/L 21.0-32.0 [facility] Platelets bldOrdered By: Glendy Solorzano on 11-25-2022 Platelets (Bld) [#/Vol] 375 10*3/uL 150-450 [facility] Serum or plasma albumin hussein urement (mass/volume)Ordered By: Amy Solorzano on 11-25-2022 Albumin [Mass/Vol] 3.0 g/dL 3.2-5.0 [facility] Serum or plasma albumin/glob ulin mass ratioOrdered By: Amy Solorzano on 11-25-2022 Albumin/Globulin [Mass ratio] 0.6 {ratio} 0.9-2.4 [facility] Serum or plasma calcium hussein urement (mass/volume)Ordered By: Amy Solorzano on 11-25-2022 Calcium [Mass/Vol] 8.2 mg/dL 8.5-10.1 [facility] Serum or plasma creatinine m easurement [...] 11-25-2022 Urea nitrogen [Mass/Vol] 13 mg/dL 7-18 [facility] Thin prep Papanicolaou smear with manual screeningOrdered By: Amy Solorzano on 11-25-2022 Thin prep Papanicolaou smear with manual screening 15 U/L 15-37 [facility] Thin prep Papanicolaou smear with manual screening 12 5-15 [facility] Thin prep Papanicolaou smear with manual screening 6.1 mg/L NO RANGE EST. [facility] Whole blood hemoglobin A1c/t otal hemoglobin ratio (mass fraction)Ordered By: Amy Solorzano on 11-25-2022 HbA1c (Bld) [Mass fraction] 12.1 % 3.8-5.6 [facility] Comment on above: Normal < 5.7 % Predi abetic 5.7 - 6.4 % Diabetic >or= 6.5 % Please note range changes. Absolute lymphocyte countOrd ered By: Dr. Villatoro on 08-15-2022 Lymphocytes Auto (Unsp spec) [#/Vol] 2.49 10*3/uL 0.83-4.51 [facility] Basophil percentageOrdered B y: Dr. Villatoro on 08-15-2022 Basophils/100 WBC (Bld) 0.4 % 0-1 [facility] Chloride [Moles/Vol] 104 mmol/L 98-107 [facility] Eosinophils/100 WBC (Bld) 0.9 % 0-5 [facility] Glucose [Mass/Vol] 215 mg/dL 74-106 [facility] Comment on above: Glucose result great er than or equal to 200 mg/dLsuggests DIABETES MELLITUS per A.D.A. criteria. Neutrophils (Bld) [#/Vol] 5.7 10*3/uL 2.0-7.7 [facility] Neutrophils/100 WBC (Bld) 62.3 % 47-70 [facility] Potassium [Moles/Vol] 4.0 mmol/L 3.5-5.1 [facility] Sodium [Moles/Vol] 137 mmol/L 136-145 [facility] WBC (Bld) [#/Vol] 9.2 10*3/uL 4.4-11.0 [facility] Blood erythrocytes count (nu mber/volume)Ordered By: Dr. Villatoro on 08-15-2022 RBC (Bld) [#/Vol] 3.60 10*6/uL 4.2-5.4 [facility] Blood hemoglobin measurement (mass/volume)Ordered By: Dr. Villatoro on 08-15-2022 Hemoglobin (Bld) [Mass/Vol] 9.2 g/dL 12.0-15.0 [facility] Blood lymphocytes/100 leukoc ytesOrdered By: Dr. Villatoro on 08-15-2022 Lymphocytes/100 WBC (Bld) 27.1 % 19-41 [facility] Blood monocytes/100 leukocyt esOrdered By: Dr. Villatoro on 08-15-2022 Monocytes/100 WBC (Bld) 8.2 % 0-10 [facility] Blood platelet mean volumeOr dered By: Dr. Villatoro on 08-15-2022 Platelet mean volume (Bld) [Entitic vol] 9.0 fL 6.2-12.0 [facility] Determination of erythrocyte mean corpuscular volume (MCV)Ordered By: Dr. Villatoro on 08-15-2022 MCV (RBC) [Entitic vol] 81.4 fL 81-99 [facility] Glucose Glucometer (BldC) [M ass/Vol]Ordered By: Dr. Villatoro on 08-15-2022 Glucose [Mass/Vol] 290 mg/dL 74-106 [facility] Comment on above: MANAGEMENT OF PATIEN T CARE PER NURSING PROTOCOL Hematocrit Auto (Bld) [Volum e fraction]Ordered By: Dr. Villatoro on 08-15-2022 Hematocrit (Bld) [Volume fraction] 29.3 % 37-47 [facility] - Chemistry and C hemistry - challengeOrdered By: Dr. Villatoro on 08-15-2022 CO2 [Moles/Vol] 24.0 mmol/L 21.0-32.0 [facility] Urea nitrogen/Creatinine [Mass ratio] 7.1 mg/mg 10-20 [facility] - Hematology and Cell countsOrdered By: Dr. Villatoro on 08-15-2022 Erythrocyte distribution width (RBC) [Entitic vol] 38.4 fL 35.1-43.9 [facility] Erythrocyte distribution width (RBC) [Ratio] 12.9 % 11.6-14.6 [facility] Immature granulocytes/100 WBC (Bld) 1.100 % 0.0-0.9 [facility] Comment on above: IG% - Immature Granu locytes (promyelocytes, myelocytes and metamyelocytes) > 1% indicates that a LEFT SHIFT is Present. MCH (RBC) [Entitic mass] 25.6 pg 27.0-32.0 [facility] Nucleated RBC/100 WBC (Bld) [Ratio] 0 % 0-5 [facility] MCHC Auto (RBC) [Mass/Vol]Or dered By: Dr. Villatoro on 08-15-2022 MCHC (RBC) [Mass/Vol] 31.4 g/dL 32-36 [facility] No Panel InformationOrdered By: Dr. Villatoro on 08-15-2022 Estimated Creatinine Clearance Calc 110.01 ml/min [facility] Estimated GFR (MDRD) Amer 125 mL/min >60 [facility] Comment on above: GFR Calc Estimated GFR (MDRD) Non-Af Amer 104 mL/min >60 [facility] Comment on above: Non- GFR Calc Platelets bldOrdered By: Dr. Villatoro on 08-15-2022 Platelets (Bld) [#/Vol] 458 10*3/uL 150-450 [facility] Serum or plasma C reactive p rotein measurement (mass/volume)Ordered By: Dr. Villatoro on 08-15-2022 CRP [Mass/Vol] 119.00 mg/L 0.0-3.0 [facility] Comment on above: C-Reactive Protein ( CRP) provides useful information for thediagnosis, therapy and monitoring of inflammatory processesand associated diseases. For the evaluation of Relative Riskfor Cardiovascular Disease, a High Sensitivity CRP (HSCRP)should be ordered. Serum or plasma calcium hussein urement (mass/volume)Ordered By: Dr. Villatoro on 08-15-2022 Calcium [Mass/Vol] 8.4 mg/dL 8.5-10.1 [facility] Serum or plasma creatinine m easurement [...] 08-15-2022 Urea nitrogen [Mass/Vol] 5 mg/dL 7-18 [facility] Thin prep Papanicolaou smear with manual screeningOrdered By: Dr. Villatoro on 08-15-2022 Thin prep Papanicolaou smear with manual screening 9 5-15 [facility] Culture, urineOrdered By: Dr Marine Christiansen on 08-14-2022 Bacteria identified Cx Nom (U) Escherichia coli [facility] Basophil percentageOrdered B y: Dr. Urbina on 08-13-2022 Bilirubin [Mass/Vol] 0.50 mg/dL 0.20-1.00 [facility] Comment on above: For patients on eltr ombopag therapy, use of Dimension [place] TBIL is not recommended. Protein [Mass/Vol] 8.1 g/dL 6.4-8.2 [facility] Erythrocyte sedimentation ra teOrdered By: Dr. Villatoro on 08-13-2022 ESR (Bld) [Velocity] 43 mm/h 0-30 [facility] Laboratory - Chemistry and C hemistry - challengeOrdered By: Dr. Urbina on 08-13-2022 ALP [Catalytic activity/Vol] 99 U/L 45-117 [facility] ALT [Catalytic activity/Vol] 11 U/L 13-56 [facility] Globulin (S) [Mass/Vol] 5.6 g/dL 2.2-4.2 [facility] Magnesium [Mass/Vol] 2.2 mg/dL 1.6-2.6 [facility] Serum or plasma albumin hussein urement (mass/volume)Ordered By: Dr. Urbina on 08-13-2022 Albumin [Mass/Vol] 2.5 g/dL 3.2-5.0 [facility] Serum or plasma albumin/glob ulin mass ratioOrdered By: Dr. Urbina on 08-13-2022 Albumin/Globulin [Mass ratio] 0.4 {ratio} 0.9-2.4 [facility] Thin prep Papanicolaou smear with manual screeningOrdered By: Dr. Urbina on 08-13-2022 Thin prep Papanicolaou smear with manual screening 8 U/L 15-37 [facility] Absolute lymphocyte countOrd ered By: Dr. Christiansen on 08-12-2022 Lymphocytes Auto (Unsp spec) [#/Vol] 3.81 10*3/uL 0.83-4.51 [facility] Basophil percentageOrdered B y: Dr. Christiansen on 08-12-2022 Basophil percentage 10-25 SEEN /hpf 0-5 [facility] Basophils/100 WBC (Bld) 0.3 % 0-1 [facility] Bilirubin [Mass/Vol] 0.50 mg/dL 0.20-1.00 [facility] Comment on above: For patients on eltr ombopag therapy, use of Dimension [place] TBIL is not recommended. Chloride [Moles/Vol] 95 mmol/L 98-107 [facility] Eosinophils/100 WBC (Bld) 0.1 % 0-5 [facility] Glucose [Mass/Vol] 230 mg/dL 74-106 [facility] Comment on above: Glucose result great er than or equal to 200 mg/dLsuggests DIABETES MELLITUS per A.D.A. criteria. Neutrophils (Bld) [#/Vol] 13.2 10*3/uL 2.0-7.7 [facility] Neutrophils/100 WBC (Bld) 69.8 % 47-70 [facility] Potassium [Moles/Vol] 3.9 mmol/L 3.5-5.1 [facility] Comment on above: Slight Hemolysis, Re sult may be falsely increased. Protein [Mass/Vol] 9.2 g/dL 6.4-8.2 [facility] Sodium [Moles/Vol] 130 mmol/L 136-145 [facility] WBC (Bld) [#/Vol] 18.9 10*3/uL 4.4-11.0 [facility] Bilirubin Test strip Ql (U)O rdered By: Dr. Christiansen on 08-12-2022 Bilirubin Ql (U) Negative Negative [facility] Blood erythrocytes count (nu mber/volume)Ordered By: Dr. Christiansen on 08-12-2022 RBC (Bld) [#/Vol] 4.35 10*6/uL 4.2-5.4 [facility] Blood hemoglobin measurement (mass/volume)Ordered By: Dr. Christiansen on 08-12-2022 Hemoglobin (Bld) [Mass/Vol] 11.4 g/dL 12.0-15.0 [facility] Blood lymphocytes/100 leukoc ytesOrdered By: Dr. Christiansen on 08-12-2022 Lymphocytes/100 WBC (Bld) 20.1 % 19-41 [facility] Blood manual differential co mment interpretation (narrative result)Ordered By: Dr. Christiansen on 08-12-2022 Manual differential comment Franky (Bld) [Interp] SCANNED [facility] Comment on above: MONOCYTOSIS NOTED Blood monocytes/100 leukocyt esOrdered By: Dr. Christiansen on 08-12-2022 Monocytes/100 WBC (Bld) 8.7 % 0-10 [facility] Blood platelet mean volumeOr dered By: Dr. Christiansen on 08-12-2022 Platelet mean volume (Bld) [Entitic vol] 9.3 fL 6.2-12.0 [facility] Determination of erythrocyte mean corpuscular volume (MCV)Ordered By: Dr. Christiansen on 08-12-2022 MCV (RBC) [Entitic vol] 78.2 fL 81-99 [facility] Glucose Glucometer (BldC) [M ass/Vol]Ordered By: Dr. Urbina on 08-12-2022 Glucose [Mass/Vol] 212 mg/dL 74-106 [facility] Comment on above: MANAGEMENT OF PATIEN T CARE PER NURSING PROTOCOL Hematocrit Auto (Bld) [Volum e fraction]Ordered By: Dr. Christiansen on 08-12-2022 Hematocrit (Bld) [Volume fraction] 34.0 % 37-47 [facility] Ketones Test strip Ql (U)Ord ered By: Dr. Christiansen on 08-12-2022 Ketones Ql (U) 15 mg/dl Negative [facility] Laboratory - Chemistry and C hemistry - challengeOrdered By: Dr. Christiansen on 08-12-2022 ALP [Catalytic activity/Vol] 136 U/L 45-117 [facility] ALT [Catalytic activity/Vol] 13 U/L 13-56 [facility] CO2 [Moles/Vol] 23.0 mmol/L 21.0-32.0 [facility] Globulin (S) [Mass/Vol] 6.3 g/dL 2.2-4.2 [facility] Magnesium [Mass/Vol] 1.6 mg/dL 1.6-2.6 [facility] Comment on above: Slight Hemolysis, Re sult may be falsely increased. Urea nitrogen/Creatinine [Mass ratio] 7.2 mg/mg 10-20 [facility] - Hematology and Cell countsOrdered By: Dr. Christiansen on 08-12-2022 Erythrocyte distribution width (RBC) [Entitic vol] 36.9 fL 35.1-43.9 [facility] Erythrocyte distribution width (RBC) [Ratio] 12.9 % 11.6-14.6 [facility] Immature granulocytes/100 WBC (Bld) 1.000 % 0.0-0.9 [facility] Comment on above: IG% - Immature Granu locytes (promyelocytes, myelocytes and metamyelocytes) > 1% indicates that a LEFT SHIFT is Present. MCH (RBC) [Entitic mass] 26.2 pg 27.0-32.0 [facility] Nucleated RBC/100 WBC (Bld) [Ratio] 0 % 0-5 [facility] MCHC Auto (RBC) [Mass/Vol]Or dered By: Dr. Christiansen on 08-12-2022 MCHC (RBC) [Mass/Vol] 33.5 g/dL 32-36 [facility] Mucus LM Ql (Urine sed)Order ed By: Dr. Christiansen on 08-12-2022 Mucus Ql (Urine sed) 0 SEEN /hpf [facility] Nitrite Test strip Ql (U)Ord ered By: Dr. Christiansen on 08-12-2022 Nitrite Ql (U) Negative Negative [facility] No Panel InformationOrdered By: Dr. Christiansen on 08-12-2022 Estimated Creatinine Clearance Calc 69.38 ml/min [facility] Estimated GFR (MDRD) Amer 74 mL/min >60 [facility] Comment on above: GFR Calc Estimated GFR (MDRD) Non-Af Amer 61 mL/min >60 [facility] Comment on above: Non- GFR Calc Troponin I High Sensitivity 6 pg/mL 3.0-54.0 [facility] Comment on above: Please Note: New Catherine t Units and Gender Specific Reference Ranges. For more information see Policy Stat Procedure [place] High Sensitivity Troponin (TNIH) and attachments. Platelets bldOrdered By: Dr. Christiansen on 08-12-2022 Platelets (Bld) [#/Vol] 453 10*3/uL 150-450 [facility] Protein Test strip Ql (U)Ord ered By: Dr. Christiansen on 08-12-2022 Protein Ql (U) 100 mg/dl Negative [facility] Review by pathologistOrdered By: Dr. Christiansen on 08-12-2022 Pathologist review Franky (Unsp spec) [Interp] Zahraa waite [facility] Pathologist review Franky (Unsp spec) [Interp] Reviewed [facility] Comment on above: Previous reported re sult: Zahraa waite Edited by: RGOOD on 08/14/22:0949Neutrophilic leukocytosis.Microcytic RBCs.Clinical correlation suggested.Franki Glez D.O. 08/14/22 AMENDED REPORT 08/14/22 0949 PATH REV previously reported as: Zahraa waite Serum or plasma acetone hussein urement (mass/volume)Ordered By: Dr. Christiansen on 08-12-2022 Acetone [Mass/Vol] Negative NEG [facility] Serum or plasma albumin hussein urement (mass/volume)Ordered By: Dr. Christiansen on 08-12-2022 Albumin [Mass/Vol] 2.9 g/dL 3.2-5.0 [facility] Serum or plasma albumin/glob ulin mass ratioOrdered By: Dr. Christiansen on 08-12-2022 Albumin/Globulin [Mass ratio] 0.5 {ratio} 0.9-2.4 [facility] Serum or plasma calcium hussein urement (mass/volume)Ordered By: Dr. Christiansen on 08-12-2022 Calcium [Mass/Vol] 9.6 mg/dL 8.5-10.1 [facility] Serum or plasma creatinine m easurement [...] 08-12-2022 Urea nitrogen [Mass/Vol] 8 mg/dL 7-18 [facility] Squamous epithelial cells de tection in urine sediment by light microscopyOrdered By: Dr. Christiansen on 08-12-2022 Epithelial cells.squamous LM Ql (Urine sed) 0-5 SEEN /hpf 5-10 [facility] Thin prep Papanicolaou smear with manual screeningOrdered By: Dr. Christiansen on 08-12-2022 Thin prep Papanicolaou smear with manual screening 20 U/L 15-37 [facility] Comment on above: Slight Hemolysis, Re sult may be falsely increased. Thin prep Papanicolaou smear with manual screening 12 5-15 [facility] Urine blood detectionOrdered By: Dr. Christiansen on 08-12-2022 RBC Ql (U) 150 /ul Negative [facility] RBC Ql (U) 0 SEEN /hpf 0-5 [facility] Urine clarityOrdered By: Dr. Christiansen on 08-12-2022 Clarity (U) Clear Clear [facility] Urine color determinationOrd ered By: Dr. Christiansen on 08-12-2022 Color (U) Yellow Yellow [facility] Urine glucose detectionOrder ed By: Dr. Christiansen on 08-12-2022 Glucose Ql (U) 50 mg/dl Normal [facility] Urine leukocyte esterase det ection by dipstickOrdered By: Dr. Christiansen on 08-12-2022 Leukocyte esterase Test strip Ql (U) 100 /ul Negative [facility] Urine pHOrdered By: Dr. Ethan arriola on 08-12-2022 pH (U) 6.0 [pH] 5.0 - 8.0 [facility] Urine sediment bacteria coun t by microscopy (number/high power field)Ordered By: Dr. Christiansen on 08-12-2022 Bacteria LM.HPF (Urine sed) [#/Area] 0 /[HPF] None Seen [facility] Urine specific gravity measu rementOrdered By: Dr. Christiansen on 08-12-2022 Specific gravity (U) [Rel density] 1.010 1.002-1.030 [facility] Urobilinogen Auto test strip Ql (U)Ordered By: Dr. Christiansen on 08-12-2022 Urobilinogen Ql (U) Normal mg/dl Normal [facility] Acid fast bacilli (AFB) cult ureOrdered By: Dr. Matias on 08-09-2022 Mycobacterium sp identified Org specific cx Nom (Unsp spec) [facility] Thin prep Papanicolaou smear with manual screeningOrdered By: Dr. Matias on 08-09-2022 Thin prep Papanicolaou smear with manual screening [facility] Absolute lymphocyte countOrd ered By: Dr. Rao on 06-29-2022 Lymphocytes Auto (Unsp spec) [#/Vol] 2.81 10*3/uL 0.83-4.51 [facility] Basophil percentageOrdered B y: Dr. Rao on 06-29-2022 Basophils/100 WBC (Bld) 0.7 % 0-1 [facility] Chloride [Moles/Vol] 105 mmol/L 98-107 [facility] Eosinophils/100 WBC (Bld) 1.3 % 0-5 [facility] Glucose [Mass/Vol] 192 mg/dL 74-106 [facility] Comment on above: Fasting Glucose resu lt greater than or equal to 126 mg/dL suggests DIABETES MELLITUS per A.D.A. criteria. Neutrophils (Bld) [#/Vol] 4.2 10*3/uL 2.0-7.7 [facility] Neutrophils/100 WBC (Bld) 51.1 % 47-70 [facility] Potassium [Moles/Vol] 3.9 mmol/L 3.5-5.1 [facility] Sodium [Moles/Vol] 136 mmol/L 136-145 [facility] WBC (Bld) [#/Vol] 8.2 10*3/uL 4.4-11.0 [facility] Blood erythrocytes count (nu mber/volume)Ordered By: Dr. Rao on 06-29-2022 RBC (Bld) [#/Vol] 4.46 10*6/uL 4.2-5.4 [facility] Blood hemoglobin measurement (mass/volume)Ordered By: Dr. Rao on 06-29-2022 Hemoglobin (Bld) [Mass/Vol] 11.7 g/dL 12.0-15.0 [facility] Blood lymphocytes/100 leukoc ytesOrdered By: Dr. Rao on 06-29-2022 Lymphocytes/100 WBC (Bld) 34.3 % 19-41 [facility] Blood monocytes/100 leukocyt esOrdered By: Dr. Rao on 06-29-2022 Monocytes/100 WBC (Bld) 9.9 % 0-10 [facility] Blood platelet mean volumeOr dered By: Dr. Rao on 06-29-2022 Platelet mean volume (Bld) [Entitic vol] 9.1 fL 6.2-12.0 [facility] Determination of erythrocyte mean corpuscular volume (MCV)Ordered By: Dr. Rao on 06-29-2022 MCV (RBC) [Entitic vol] 81.8 fL 81-99 [facility] Glucose Glucometer (dC) [M ass/Vol]Ordered By: Dr. Lr on 06-29-2022 Glucose [Mass/Vol] 251 mg/dL 74-106 [facility] Comment on above: MANAGEMENT OF PATIEN T CARE PER NURSING PROTOCOL Hematocrit Auto (Bld) [Volum e fraction]Ordered By: Dr. Rao on 06-29-2022 Hematocrit (Bld) [Volume fraction] 36.5 % 37-47 [facility] Laboratory - Chemistry and C hemistry - challengeOrdered By: Dr. Rao on 06-29-2022 CO2 [Moles/Vol] 24.0 mmol/L 21.0-32.0 [facility] Urea nitrogen/Creatinine [Mass ratio] 18.4 mg/mg 10-20 [facility] - Hematology and Cell countsOrdered By: Dr. Rao on 06-29-2022 Erythrocyte distribution width (RBC) [Entitic vol] 41.2 fL 35.1-43.9 [facility] Erythrocyte distribution width (RBC) [Ratio] 14.1 % 11.6-14.6 [facility] Immature granulocytes/100 WBC (Bld) 2.700 % 0.0-0.9 [facility] Comment on above: IG% - Immature Granu locytes (promyelocytes, myelocytes and metamyelocytes) > 1% indicates that a LEFT SHIFT is Present. MCH (RBC) [Entitic mass] 26.2 pg 27.0-32.0 [facility] Nucleated RBC/100 WBC (Bld) [Ratio] 0.2 % 0-5 [facility] - Microbiology an d Antimicrobial susceptibilityOrdered By: Dr. Hinson on 06-29-2022 Bacteria identified Cx Nom (Bld) No growth in 5 days. [facility] MCHC Auto (RBC) [Mass/Vol]Or dered By: Dr. Rao on 06-29-2022 MCHC (RBC) [Mass/Vol] 32.1 g/dL 32-36 [facility] No Panel InformationOrdered By: Dr. Rao on 06-29-2022 Estimated Creatinine Clearance Calc 108.46 ml/min [facility] Estimated GFR (MDRD) Amer 125 mL/min >60 [facility] Comment on above: GFR Calc Estimated GFR (MDRD) Non-Af Amer 103 mL/min >60 [facility] Comment on above: Non- GFR Calc Platelets bldOrdered By: Dr. Rao on 06-29-2022 Platelets (Bld) [#/Vol] 363 10*3/uL 150-450 [facility] Serum or plasma calcium hussein urement (mass/volume)Ordered By: Dr. Rao on 06-29-2022 Calcium [Mass/Vol] 8.4 mg/dL 8.5-10.1 [facility] Serum or plasma creatinine m easurement [...] 06-29-2022 Urea nitrogen [Mass/Vol] 13 mg/dL - [facility] Thin prep Papanicolaou smear with manual screeningOrdered By: Dr. Rao on 06-29-2022 Thin prep Papanicolaou smear with manual screening 7 -15 [facility] Vancomycin troughOrdered By: Dr. Rao on 06-28-2022 Vancomycin trough [Mass/Vol] 15.6 ug/mL 5.0-15.0 [facility] Comment on above: VANCOMYCIN STANDARED DRUG THERAPY TROUGH LEVEL: 5.0 - 15.0 mg/L VANCOMYCIN HIGH INTENSITY THERAPY TROUGH LEVEL: 15.0 - 20.0 mg/L High Intensity therapy recommended for serious lifethreatening infections include:- Eivfknpyib-Ajqkpeofoksu-Medqekamh (Ventilator/Healtcare Associated)-Sepsis PLEASE CONTACT PHARMACY SERVICES (#[id number]) FOR INTERPRETATIONOF RESULTS. Bacteria identified Cx Nom ( Wound)Ordered By: Dr. Matias on 06-26-2022 Wound Culture Streptococcus agalactiae (B) [facility] Culture, urineOrdered By: Dr Marine Hinson on 06-26-2022 Bacteria identified Cx Nom (U) Culture exhibits no growth. [facility] - Chemistry and C hemistry - challengeOrdered By: Dr. Morton on 06-26-2022 HCG ( test) Ql (U) Negative [facility] Comment on above: Very dilute urine sp ecimens, as indicated by a low specificgravity, may not contain product sales representative levels of hCG. If is still suspected, a first morning urinespecimen should be collected 48 hours later and tested. Absolute lymphocyte counton 06-25-2022 Lymphocytes Auto (Unsp spec) [#/Vol] 3.27 10*3/uL 0.83-4.51 [facility] Work Phone: Basophil percentageon 2021 Basophils/100 WBC (Bld) 0.7 % 0-1 [facility] Work Phone: Chloride [Moles/Vol] 104 mmol/L 98-107 [facility] Work Phone: Eosinophils/100 WBC (Bld) 1.2 % 0-5 [facility] Work Phone: Glucose [Mass/Vol] 261 mg/dL 74-106 [facility] Work Phone: Comment on above: Glucose result great er than or equal to 200 mg/dLsuggests DIABETES MELLITUS per A.D.A. criteria. Neutrophils (Bld) [#/Vol] 4.8 10*3/uL 2.0-7.7 [facility] Work Phone: Neutrophils/100 WBC (Bld) 53.1 % 47-70 [facility] Work Phone: Potassium [Moles/Vol] 4.3 mmol/L 3.5-5.1 [facility] Work Phone: Sodium [Moles/Vol] 135 mmol/L 136-145 [facility] Work Phone: WBC (Bld) [#/Vol] 9.0 10*3/uL 4.4-11.0 [facility] Work Phone: Blood erythrocytes count (nu mber/volume)on 06-25-2022 RBC (Bld) [#/Vol] 4.62 10*6/uL 4.2-5.4 [facility] Work Phone: Blood hemoglobin measurement (mass/volume)on 06-25-2022 Hemoglobin (Bld) [Mass/Vol] 12.1 g/dL 12.0-15.0 [facility] Work Phone: Blood lymphocytes/100 leukoc yteson 06-25-2022 Lymphocytes/100 WBC (Bld) 36.4 % 19-41 [facility] Work Phone: Blood monocytes/100 leukocyt eson 06-25-2022 Monocytes/100 WBC (Bld) 7.0 % 0-10 [facility] Work Phone: Blood platelet mean volumeon 06-25-2022 Platelet mean volume (Bld) [Entitic vol] 9.5 fL 6.2-12.0 [facility] Work Phone: [phone] Determination of erythrocyte mean corpuscular volume (MCV)on 06-25-2022 MCV (RBC) [Entitic vol] 82.0 fL 81-99 [facility] Work Phone: [phone] Glucose Glucometer (BldC) [M ass/Vol]on 06-25-2022 Glucose [Mass/Vol] 263 mg/dL 74-106 [facility] Work Phone: [phone] Comment on above: MANAGEMENT OF PATIEN T CARE PER NURSING PROTOCOL Hematocrit Auto (Bld) [Volum e fraction]on 06-25-2022 Hematocrit (Bld) [Volume fraction] 37.9 % 37-47 [facility] Work Phone: [phone] Laboratory - Chemistry and C hemistry - challengeon 06-25-2022 CO2 [Moles/Vol] 24.0 mmol/L 21.0-32.0 [facility] Work Phone: [phone] Urea nitrogen/Creatinine [Mass ratio] 13.1 mg/mg 10-20 [facility] Work Phone: [phone] Laboratory - Hematology and Cell countson 06-25-2022 Erythrocyte distribution width (RBC) [Entitic vol] 41.4 fL 35.1-43.9 [facility] Work Phone: [phone] Erythrocyte distribution width (RBC) [Ratio] 14.1 % 11.6-14.6 [facility] Work Phone: [phone] Immature granulocytes/100 WBC (Bld) 1.600 % 0.0-0.9 [facility] Work Phone: [phone] Comment on above: IG% - Immature Granu locytes (promyelocytes, myelocytes and metamyelocytes) > 1% indicates that a LEFT SHIFT is Present. MCH (RBC) [Entitic mass] 26.2 pg 27.0-32.0 [facility] Work Phone: [phone] Nucleated RBC/100 WBC (Bld) [Ratio] 0 % 0-5 [facility] Work Phone: [phone] MCHC Auto (RBC) [Mass/Vol]on 06-25-2022 MCHC (RBC) [Mass/Vol] 31.9 g/dL 32-36 [facility] Work Phone: No Panel Informationon 06-25 Estimated Creatinine Clearance Calc 101.33 ml/min [facility] Work Phone: Estimated GFR (MDRD) Amer 114 mL/min >60 [facility] Work Phone: [phone] Comment on above: GFR Calc Estimated GFR (MDRD) Non-Af Amer 95 mL/min >60 [facility] Work Phone: Comment on above: Non- GFR Calc Platelets bldon 06-25-2022 Platelets (Bld) [#/Vol] 353 10*3/uL 150-450 [facility] Work Phone: Serum or plasma calcium hussein urement (mass/volume)on 06-25-2022 Calcium [Mass/Vol] 8.6 mg/dL 8.5-10.1 [facility] Work Phone: [phone] Serum or plasma creatinine m easurement (mass/volume)on 06-25-2022 Creatinine [Mass/Vol] 0.76 mg/dL 0.55-1.02 [facility] Work Phone: Comment on above: The validity of the calculated GFR & GFRAA in patients over 70 years has not been determined. Clinical correlation is essential. Serum or plasma urea nitroge n measurement (mass/volume)on 06-25-2022 Urea nitrogen [Mass/Vol] 10 mg/dL 7-18 [facility] Work Phone: [phone] Thin prep Papanicolaou smear with manual screeningon 06-25-2022 Thin prep Papanicolaou smear with manual screening 7 5-15 [facility] Work Phone: [phone] Absolute lymphocyte counton 06-24-2022 Lymphocytes Auto (Unsp spec) [#/Vol] 3.15 10*3/uL 0.83-4.51 [facility] Work Phone: Basophil percentageOrdered B y: Dr. Hinson on 06-24-2022 Lactate [Moles/Vol] 3.0 mmol/L 0.4-2.0 [facility] Comment on above: Critical Result(s) C alled at: 18:06:09 06/24/2022 by: LUIS E VALENZUELA.DEMETRIO PACHECO RN MS-3 Results read back by same. Basophil percentage 0 SEEN /hpf 0-5 [facility] Bilirubin [Mass/Vol] 0.30 mg/dL 0.20-1.00 [facility] Comment on above: For patients on eltr ombopag therapy, use of Dimension [place] TBIL is not recommended. Protein [Mass/Vol] 8.0 g/dL 6.4-8.2 [facility] Basophil percentageon 2021 Basophils/100 WBC (Bld) 0.5 % 0-1 [facility] Work Phone: Chloride [Moles/Vol] 104 mmol/L 98-107 [facility] Work Phone: Eosinophils/100 WBC (Bld) 0.7 % 0-5 [facility] Work Phone: Glucose [Mass/Vol] 318 mg/dL 74-106 [facility] Work Phone: Comment on above: Glucose result great er than or equal to 200 mg/dLsuggests DIABETES MELLITUS per A.D.A. criteria. Lactate [Moles/Vol] 4.8 mmol/L 0.4-2.0 [facility] Work Phone: Comment on above: Critical Result(s) C alled at: 13:11:31 06/24/2022 by: Gayathri Edmond. Results read back by same. Neutrophils (Bld) [#/Vol] 5.1 10*3/uL 2.0-7.7 [facility] Work Phone: Neutrophils/100 WBC (Bld) 56.2 % 47-70 [facility] Work Phone: Potassium [Moles/Vol] 3.9 mmol/L 3.5-5.1 [facility] Work Phone: Sodium [Moles/Vol] 138 mmol/L 136-145 [facility] Work Phone: [phone] WBC (Bld) [#/Vol] 9.1 10*3/uL 4.4-11.0 [facility] Work Phone: Bilirubin Test strip Ql (U)O rdered By: Dr. Hinson on 06-24-2022 Bilirubin Ql (U) Negative Negative [facility] Blood erythrocytes count (nu mber/volume)on 06-24-2022 RBC (Bld) [#/Vol] 4.73 10*6/uL 4.2-5.4 [facility] Work Phone: Blood hemoglobin measurement (mass/volume)on 06-24-2022 Hemoglobin (Bld) [Mass/Vol] 12.8 g/dL 12.0-15.0 [facility] Work Phone: Blood lymphocytes/100 leukoc yteson 06-24-2022 Lymphocytes/100 WBC (Bld) 34.6 % 19-41 [facility] Work Phone: Blood monocytes/100 leukocyt eson 06-24-2022 Monocytes/100 WBC (Bld) 6.8 % 0-10 [facility] Work Phone: Blood platelet mean volumeon 06-24-2022 Platelet mean volume (Bld) [Entitic vol] 9.3 fL 6.2-12.0 [facility] Work Phone: Determination of erythrocyte mean corpuscular volume (MCV)on 06-24-2022 MCV (RBC) [Entitic vol] 81.2 fL 81-99 [facility] Work Phone: Gram stain for investigation of transfusion reactionOrdered By: Dr. Matias on 06-24-2022 Microscopic observation Gram stain Nom (Unsp spec) [facility] Hematocrit Auto (Bld) [Volum e fraction]on 06-24-2022 Hematocrit (Bld) [Volume fraction] 38.4 % 37-47 [facility] Work Phone: Ketones Test strip Ql (U)Ord ered By: Dr. Hinson on 06-24-2022 Ketones Ql (U) 15 mg/dl Negative [facility] Laboratory - Chemistry and C hemistry - challengeOrdered By: Dr. Hinson on 06-24-2022 ALP [Catalytic activity/Vol] 76 U/L 45-117 [facility] ALT [Catalytic activity/Vol] 22 U/L 13-56 [facility] Globulin (S) [Mass/Vol] 5.2 g/dL 2.2-4.2 [facility] Laboratory - Chemistry and C hemistry - challengeon 06-24-2022 CO2 [Moles/Vol] 28.0 mmol/L 21.0-32.0 [facility] Work Phone: Urea nitrogen/Creatinine [Mass ratio] 13.8 mg/mg 10-20 [facility] Work Phone: Laboratory - Hematology and Cell countson 06-24-2022 Erythrocyte distribution width (RBC) [Entitic vol] 41.3 fL 35.1-43.9 [facility] Work Phone: Erythrocyte distribution width (RBC) [Ratio] 14.2 % 11.6-14.6 [facility] Work Phone: Immature granulocytes/100 WBC (Bld) 1.200 % 0.0-0.9 [facility] Work Phone: Comment on above: IG% - Immature Granu locytes (promyelocytes, myelocytes and metamyelocytes) > 1% indicates that a LEFT SHIFT is Present. MCH (RBC) [Entitic mass] 27.1 pg 27.0-32.0 [facility] Work Phone: Nucleated RBC/100 WBC (Bld) [Ratio] 0 % 0-5 [facility] Work Phone: MCHC Auto (RBC) [Mass/Vol]on 06-24-2022 MCHC (RBC) [Mass/Vol] 33.3 g/dL 32-36 [facility]: Mucus LM Ql (Urine sed)Order ed By: Dr. Hinson on 06-24-2022 Mucus Ql (Urine sed) 0 SEEN /hpf [facility] Nitrite Test strip Ql (U)Ord ered By: Dr. Hinson on 06-24-2022 Nitrite Ql (U) Negative Negative [facility] No Panel Informationon 06-24 Estimated Creatinine Clearance Calc 96.26 ml/min [facility] Work Phone: Estimated GFR (MDRD) Amer 109 mL/min >60 [facility] Work Phone: Comment on above: GFR Calc Estimated GFR (MDRD) Non-Af Amer 90 mL/min >60 [facility] Work Phone: Comment on above: Non- GFR Calc Platelets bldon 06-24-2022 Platelets (Bld) [#/Vol] 345 10*3/uL 150-450 [facility] Work Phone: Protein Test strip Ql (U)Ord ered By: Dr. Hinson on 06-24-2022 Protein Ql (U) 15 mg/dl Negative [facility] Serum or plasma albumin hussein urement (mass/volume)Ordered By: Dr. Hinson on 06-24-2022 Albumin [Mass/Vol] 2.8 g/dL 3.2-5.0 [facility] Serum or plasma albumin/glob ulin mass ratioOrdered By: Dr. Hinson on 06-24-2022 Albumin/Globulin [Mass ratio] 0.5 {ratio} 0.9-2.4 [facility] Serum or plasma calcium hussein urement (mass/volume)on 06-24-2022 Calcium [Mass/Vol] 9.1 mg/dL 8.5-10.1 [facility] Work Phone: Serum or plasma creatinine m easurement (mass/volume)on 06-24-2022 Creatinine [Mass/Vol] 0.80 mg/dL 0.55-1.02 [facility] Work Phone: Comment on above: The validity of the calculated GFR & GFRAA in patients over 70 years has not been determined. Clinical correlation is essential. Serum or plasma urea nitroge n measurement (mass/volume)on 06-24-2022 Urea nitrogen [Mass/Vol] 11 mg/dL 7-18 [facility] Work Phone: Squamous epithelial cells de tection in urine sediment by light microscopyOrdered By: Dr. Hinson on 06-24-2022 Epithelial cells.squamous LM Ql (Urine sed) 5-10 SEEN /hpf 5-10 [facility] Thin prep Papanicolaou smear with manual screeningOrdered By: Dr. Hinson on 06-24-2022 Thin prep Papanicolaou smear with manual screening 10 U/L 15-37 [facility] Thin prep Papanicolaou smear with manual screeningon 06-24-2022 Thin prep Papanicolaou smear with manual screening 6 5-15 [facility] Work Phone: Urine blood detectionOrdered By: Dr. Hinson on 06-24-2022 RBC Ql (U) 25 /ul Negative [facility] RBC Ql (U) 10-25 SEEN /hpf 0-5 [facility] Urine clarityOrdered By: Dr. Hinson on 06-24-2022 Clarity (U) Sl. Cloudy Clear [facility] Urine color determinationOrd ered By: Dr. Hinson on 06-24-2022 Color (U) Yellow Yellow [facility] Urine glucose detectionOrder ed By: Dr. Hinson on 06-24-2022 Glucose Ql (U) 1000 mg/dl Normal [facility] Urine leukocyte esterase det ection by dipstickOrdered By: Dr. Hinson on 06-24-2022 Leukocyte esterase Test strip Ql (U) Negative Negative [facility] Urine pHOrdered By: Dr. Vonda aden on 06-24-2022 pH (U) 5.0 [pH] 5.0 - 8.0 [facility] Urine sediment bacteria coun t by microscopy (number/high power field)Ordered By: Dr. Hinson on 06-24-2022 Bacteria LM.HPF (Urine sed) [#/Area] RARE /hpf None Seen [facility] Urine specific gravity measu rementOrdered By: Dr. Hinson on 06-24-2022 Specific gravity (U) [Rel density] 1.025 1.002-1.030 [facility] Urobilinogen Auto test strip Ql (U)Ordered By: Dr. Hinson on 06-24-2022 Urobilinogen Ql (U) Normal mg/dl Normal [facility] Whole blood hemoglobin A1c/t otal hemoglobin ratio (mass fraction)Ordered By: Dr. Rao on 06-24-2022 HbA1c (Bld) [Mass fraction] 10.6 % 3.8-5.6 [facility] Comment on above: Normal < 5.7 % Predi abetic 5.7 - 6.4 % Diabetic >or= 6.5 % Please note range changes. No Panel InformationOrdered By: Dr. Matias on 06-23-2022 Methicillin-Resist S.aureus DNA PCR Positive Negative [facility] Staphylococcus aureus DNA de tection by probe and target amplification methodOrdered By: Dr. Matias on 06-23-2022 S. aureus DNA REBECCA+probe Ql (Unsp spec) Positive Negative [facility] Absolute lymphocyte countOrd ered By: Dr. Matias on 05-07-2022 Lymphocytes Auto (Unsp spec) [#/Vol] 0.99 10*3/uL 0.83-4.51 [facility] Comment on above: Previous reported re sult: 5.07 X10^3/uLEdited by: BHUPINDER on 05/07/22:1437 AMENDED REPORT 05/07/221436 Absolute Lymph previously reported as: 5.07 H X10^3/uL Basophil percentageOrdered B y: Dr. Matias on 05-07-2022 Basophil percentage [employer] [facility] Comment on above: Previous reported [...] Bilirubin [Mass/Vol] 0.20 mg/dL 0.20-1.00 [facility] Comment on above: For patients on eltr ombopag therapy, use of Dimension [place] TBIL is not recommended. Chloride [Moles/Vol] 101 mmol/L 98-107 [facility] Glucose [Mass/Vol] 207 mg/dL 74-106 [facility] Comment on above: Glucose result great er than or equal to 200 mg/dLsuggests DIABETES MELLITUS per A.D.A. criteria. Neutrophils (Bld) [#/Vol] 8.8 10*3/uL 2.0-7.7 [facility] Comment on above: Previous reported re sult: 4.8 X10^3/uLEdited by: BHUPINDER on 05/07/22:1436 AMENDED REPORT 05/07/22 1436 Absolute Neut previously reported as: 4.8 X10^3/uL Potassium [Moles/Vol] 4.0 mmol/L 3.5-5.1 [facility] Protein [Mass/Vol] 8.4 g/dL 6.4-8.2 [facility] Sodium [Moles/Vol] 134 mmol/L 136-145 [facility] WBC (Bld) [#/Vol] 11.1 10*3/uL 4.4-11.0 [facility] Blood band neutrophil count as percentage of total leukocytesOrdered By: Dr. Matias on 05-07-2022 Band form neutrophils/100 WBC (Bld) 6 % 0-5 [facility] Blood erythrocytes count (nu mber/volume)Ordered By: Dr. Matias on 05-07-2022 RBC (Bld) [#/Vol] 4.81 10*6/uL 4.2-5.4 [facility] Blood hemoglobin measurement (mass/volume)Ordered By: Dr. Matias on 05-07-2022 Hemoglobin (Bld) [Mass/Vol] 13.0 g/dL 12.0-15.0 [facility] Blood lymphocytes/100 leukoc ytesOrdered By: Dr. Matias on 05-07-2022 Lymphocytes/100 WBC (Bld) [employer] [facility] Comment on above: Previous reported re sult: 45.7 %Edited by: BHUPINDER on 05/07/22:1430 AMENDED REPORT 05/07/221429 LY% previously reported as: 45.7 H % Lymphocytes/100 WBC (Bld) 9 % 19-41 [facility] Blood monocytes/100 leukocyt esOrdered By: Dr. Matias on 05-07-2022 Monocytes/100 WBC (Bld) [employer] [facility] Comment on above: Previous reported re sult: 5.2 %Edited by: BHUPINDER on 05/07/22:1430 AMENDED REPORT 05/07/221429 MONO% previously reported as: 5.2 % Monocytes/100 WBC (Bld) 12 % 0-10 [facility] Blood platelet mean volumeOr dered By: Dr. Matias on 05-07-2022 Platelet mean volume (Bld) [Entitic vol] 9.0 fL 6.2-12.0 [facility] Blood platelet morphology de termination (nominal result)Ordered By: Dr. Matias on 05-07-2022 Platelet morphology finding Nom (Bld) LARGE [facility] Blood segmented neutrophils/ [address]: [address] Matias on 05-07-2022 Segmented neutrophils/100 WBC (Bld) 73 % 47-70 [facility] Determination of erythrocyte mean corpuscular volume (MCV)Ordered By: Dr. Matias on 05-07-2022 MCV (RBC) [Entitic vol] 81.3 fL 81-99 [facility] Hematocrit Auto (Bld) [Volum e fraction]Ordered By: Dr. Matias on 05-07-2022 Hematocrit (Bld) [Volume fraction] 39.1 % 37-47 [facility] Laboratory - Chemistry and C hemistry - challengeOrdered By: Dr. Matias on 05-07-2022 ALP [Catalytic activity/Vol] 76 U/L 45-117 [facility] ALT [Catalytic activity/Vol] 23 U/L 13-56 [facility] CO2 [Moles/Vol] 25.0 mmol/L 21.0-32.0 [facility] Globulin (S) [Mass/Vol] 5.0 g/dL 2.2-4.2 [facility] Urea nitrogen/Creatinine [Mass ratio] 17.4 mg/mg 10- [facility] Laboratory - Hematology and Cell countsOrdered By: Dr. Matias on 05-07-2022 Erythrocyte distribution width (RBC) [Entitic vol] 41.1 fL 35.1-43.9 [facility] Erythrocyte distribution width (RBC) [Ratio] 14.0 % 11.6-14.6 [facility] MCH (RBC) [Entitic mass] 27.0 pg 27.0-32.0 [facility] Nucleated RBC/100 WBC (Bld) [Ratio] 0 % 0-5 [facility] MCHC Auto (RBC) [Mass/Vol]Or dered By: Dr. Matias on 05-07-2022 MCHC (RBC) [Mass/Vol] 33.2 g/dL - [facility] No Panel InformationOrdered By: Dr. Matias on 05-07-2022 Atypical Lymphocytes RARE % [facility] Estimated GFR (MDRD) Amer 99 mL/min >60 [facility] Comment on above: GFR Calc Estimated GFR (MDRD) Non-Af Amer 82 mL/min >60 [facility] Comment on above: Non- GFR Calc Immature Granulocyte % (Auto) [employer] [facility] Comment on above: Previous reported re sult: 1.500 %Edited by: BHUPINDER on 05/07/22:1431 AMENDED REPORT 05/07/22 1431 IM GRAN % previously reported as: 1.500 H % IG% - Immature Granulocytes (promyelocytes, myelocytes and metamyelocytes) > 1% indicates that a LEFT SHIFT is Present. Platelets bldOrdered By: Dr. Matias on 05-07-2022 Platelets (Bld) [#/Vol] 369 10*3/uL 150-450 [facility] RBC morphologyOrdered By: Dr Marine Matias on 05-07-2022 RBC morphology finding Nom (Bld) NORM C+C NORMAL NORM C&C [facility] Review by pathologiston -2 Pathologist review Franky (Unsp spec) [Interp] November [facility] Work Phone: Review by pathologistOrdered By: Dr. Matias on 05-07-2022 Pathologist review Franky (Unsp spec) [Interp] Reviewed [facility] Comment on above: Previous reported re sult: Zahraa waite Edited by: RGOOD on 05/08/22:1553Neutrophilic leukocytosis.Clinical correlation suggested.Franki Glez D.O. 05/08/22 AMENDED REPORT 05/08/22 1554 PATH REV previously reported as: Zahraa watie Serum or plasma albumin hussein urement (mass/volume)Ordered By: Dr. Matias on 05-07-2022 Albumin [Mass/Vol] 3.4 g/dL 3.2-5.0 [facility] Serum or plasma albumin/glob ulin mass ratioOrdered By: Dr. Matias on 05-07-2022 Albumin/Globulin [Mass ratio] 0.7 {ratio} 0.9-2.4 [facility] Serum or plasma calcium hsusein urement (mass/volume)Ordered By: Dr. Matias on 05-07-2022 Calcium [Mass/Vol] 8.7 mg/dL 8.5-10.1 [facility] Serum or plasma creatinine m easurement [...] 05-07-2022 Urea nitrogen [Mass/Vol] 15 mg/dL 7-18 [facility] Thin prep Papanicolaou smear with manual screeningOrdered By: Dr. Matias on 05-07-2022 Thin prep Papanicolaou smear with manual screening 10 U/L 15-37 [facility] Thin prep Papanicolaou smear with manual screening 8 5-15 [facility] Basophil percentageOrdered B y: [facility] on 04-20-2022 Chloride [Moles/Vol] 104 mmol/L 98-107 [facility] Glucose [Mass/Vol] 224 mg/dL 74-106 [facility] Comment on above: Glucose result great er than or equal to 200 mg/dLsuggests DIABETES MELLITUS per A.D.A. criteria. Potassium [Moles/Vol] 3.7 mmol/L 3.5-5.1 [facility] Sodium [Moles/Vol] 139 mmol/L 136-145 [facility] WBC (Bld) [#/Vol] 9.3 10*3/uL 4.4-11.0 [facility] Blood erythrocytes count (nu mber/volume)Ordered By: [facility] on 04-20-2022 RBC (Bld) [#/Vol] 3.93 10*6/uL 4.2-5.4 [facility] Blood hemoglobin measurement (mass/volume)Ordered By: [facility] on 04-20-2022 Hemoglobin (Bld) [Mass/Vol] 10.4 g/dL 12.0-15.0 [facility] Blood platelet mean volumeOr dered By: [facility] on 04-20-2022 Platelet mean volume (Bld) [Entitic vol] 9.6 fL 6.2-12.0 [facility] Determination of erythrocyte mean corpuscular volume (MCV)Ordered By: [facility] on 04-20-2022 MCV (RBC) [Entitic vol] 83.7 fL 81-99 [facility] Erythrocyte sedimentation ra teOrdered By: [facility] on 04-20-2022 ESR (Bld) [Velocity] 60 mm/h 0-30 [facility] Hematocrit Auto (Bld) [Volum e fraction]Ordered By: [facility] on 04-20-2022 Hematocrit (Bld) [Volume fraction] 32.9 % 37-47 [facility] Laboratory - Chemistry and C hemistry - challengeOrdered By: [facility] on 04-20-2022 CO2 [Moles/Vol] 28.0 mmol/L 21.0-32.0 [facility] Urea nitrogen/Creatinine [Mass ratio] 16.3 mg/mg 10-20 [facility] Laboratory - Hematology and Cell countsOrdered By: [facility] on 04-20-2022 Erythrocyte distribution width (RBC) [Entitic vol] 41.4 fL 35.1-43.9 [facility] Erythrocyte distribution width (RBC) [Ratio] 13.5 % 11.6-14.6 [facility] MCH (RBC) [Entitic mass] 26.5 pg 27.0-32.0 [facility] MCHC Auto (RBC) [Mass/Vol]Or dered By: [facility] on 04-20-2022 MCHC (RBC) [Mass/Vol] 31.6 g/dL 32-36 [facility] No Panel InformationOrdered By: [facility] on 04-20-2022 Estimated GFR (MDRD) Amer 147 mL/min >60 [facility] Comment on above: GFR Calc Estimated GFR (MDRD) Non-Af Amer 122 mL/min >60 [facility] Comment on above: Non- GFR Calc Platelets bldOrdered By: [facility] [place] on 04-20-2022 Platelets (Bld) [#/Vol] 509 10*3/uL 150-450 [facility] Serum or plasma calcium hussein urement (mass/volume)Ordered By: [facility] on 04-20-2022 Calcium [Mass/Vol] 8.5 mg/dL 8.5-10.1 [facility] Serum or plasma creatinine m easurement (mass/volume)Ordered By: [facility] on 04-20-2022 Creatinine [Mass/Vol] 0.61 mg/dL 0.55-1.02 [facility] Comment on above: The validity of the calculated GFR & GFRAA in patients over 70 years has not been determined. Clinical correlation is essential. Serum or plasma urea nitroge n measurement (mass/volume)Ordered By: [facility] on 04-20-2022 Urea nitrogen [Mass/Vol] 10 mg/dL 7-18 [facility] Thin prep Papanicolaou smear with manual screeningOrdered By: [facility] on 04-20-2022 Thin prep Papanicolaou smear with manual screening 7 5-15 [facility] Vancomycin troughOrdered By: [facility] on 04-20-2022 Vancomycin trough [Mass/Vol] 7.2 ug/mL 5.0-15.0 [facility] Comment on above: VANCOMYCIN STANDARED DRUG THERAPY TROUGH LEVEL: 5.0 - 15.0 mg/L VANCOMYCIN HIGH INTENSITY THERAPY TROUGH LEVEL: 15.0 - 20.0 mg/L High Intensity therapy recommended for serious lifethreatening infections include:- Kkbcdohosb-Ctetruuksjqs-Uftmowmla (Ventilator/Healtcare Associated)-Sepsis PLEASE CONTACT PHARMACY SERVICES (#9805) FOR INTERPRETATIONOF RESULTS. Basophil percentageon 2021 Chloride [Moles/Vol] 103 mmol/L 98-107 [facility] Work Phone: [phone] Glucose [Mass/Vol] 188 mg/dL 74-106 [facility] Work Phone: [phone] Comment on above: Fasting Glucose resu lt greater than or equal to 126 mg/dL suggests DIABETES MELLITUS per A.D.A. criteria. Potassium [Moles/Vol] 4.3 mmol/L 3.5-5.1 [facility] Work Phone: [phone] Sodium [Moles/Vol] 137 mmol/L 136-145 [facility] Work Phone: [phone] WBC (Bld) [#/Vol] 10.0 10*3/uL 4.4-11.0 [facility] Work Phone: [phone] Blood erythrocytes count (nu mber/volume)on 04-13-2022 RBC (Bld) [#/Vol] 4.32 10*6/uL 4.2-5.4 [facility] Work Phone: [phone] Blood hemoglobin measurement (mass/volume)on 04-13-2022 Hemoglobin (Bld) [Mass/Vol] 11.5 g/dL 12.0-15.0 [facility] Work Phone: [phone] Blood platelet mean volumeon 04-13-2022 Platelet mean volume (Bld) [Entitic vol] 9.2 fL 6.2-12.0 [facility] Work Phone: [phone] Determination of erythrocyte mean corpuscular volume (MCV)on 04-13-2022 MCV (RBC) [Entitic vol] 84.7 fL 81-99 [facility] Work Phone: [phone] Erythrocyte sedimentation ra abeba 04-13-2022 ESR (Bld) [Velocity] 90 mm/h 0-30 [facility] Work Phone: [phone] Hematocrit Auto (Bld) [Volum e fraction]on 04-13-2022 Hematocrit (Bld) [Volume fraction] 36.6 % 37-47 [facility] Work Phone: [phone] Laboratory - Chemistry and C hemistry - challengeon 04-13-2022 CO2 [Moles/Vol] 25.0 mmol/L 21.0-32.0 [facility] Work Phone: [phone] Urea nitrogen/Creatinine [Mass ratio] 18.8 mg/mg 10-20 [facility] Work Phone: [phone] Laboratory - Hematology and Cell countson 04-13-2022 Erythrocyte distribution width (RBC) [Entitic vol] 41.8 fL 35.1-43.9 [facility] Work Phone: [phone] Erythrocyte distribution width (RBC) [Ratio] 13.4 % 11.6-14.6 [facility] Work Phone: [phone] MCH (RBC) [Entitic mass] 26.6 pg 27.0-32.0 [facility] Work Phone: [phone] MCHC Auto (RBC) [Mass/Vol]on 04-13-2022 MCHC (RBC) [Mass/Vol] 31.4 g/dL 32-36 [facility] Work Phone: No Panel Informationon 04-13 Estimated GFR (MDRD) Amer 128 mL/min >60 [facility] Work Phone: [phone] Comment on above: GFR Calc Estimated GFR (MDRD) Non-Af Amer 106 mL/min >60 [facility] Work Phone: [phone] Comment on above: Non- GFR Calc Platelets bldon 04-13-2022 Platelets (Bld) [#/Vol] 609 10*3/uL 150-450 [facility] Work Phone: [phone] Serum or plasma calcium hussein urement (mass/volume)on 04-13-2022 Calcium [Mass/Vol] 9.4 mg/dL 8.5-10.1 [facility] Work Phone: Serum or plasma creatinine m easurement (mass/volume)on 04-13-2022 Creatinine [Mass/Vol] 0.69 mg/dL 0.55-1.02 [facility] Work Phone: Comment on above: The validity of the calculated GFR & GFRAA in patients over 70 years has not been determined. Clinical correlation is essential. Serum or plasma urea nitroge n measurement (mass/volume)on 04-13-2022 Urea nitrogen [Mass/Vol] 13 mg/dL 7-18 [facility] Work Phone: [phone] Thin prep Papanicolaou smear with manual screeningon 04-13-2022 Thin prep Papanicolaou smear with manual screening 9 -15 [facility] Work Phone: [phone] Vancomycin troughon 04-13-20 Vancomycin trough [Mass/Vol] 19.3 ug/mL 5.0-15.0 [facility] Work Phone: Comment on above: VANCOMYCIN STANDARED DRUG THERAPY TROUGH LEVEL: 5.0 - 15.0 mg/L VANCOMYCIN HIGH INTENSITY THERAPY TROUGH LEVEL: 15.0 - 20.0 mg/L High Intensity therapy recommended for serious lifethreatening infections include:- Vpkvetwjiz-Mjtymiuvdtwu-Vjvuohovu (Ventilator/Healtcare Associated)-Sepsis PLEASE CONTACT PHARMACY SERVICES (#[id number]) FOR INTERPRETATIONOF RESULTS. Basophil percentageon 2021 Chloride [Moles/Vol] 100 mmol/L 98-107 [facility] Work Phone: [phone] Cholesterol [Mass/Vol] 143 mg/dL <200 [facility] Work Phone: Comment on above: <200 mg/dL Desirable 200-240 mg/dL Borderline >240 mg/dL High Risk Glucose [Mass/Vol] 217 mg/dL 74-106 [facility] Work Phone: Comment on above: Glucose result great er than or equal to 200 mg/dLsuggests DIABETES MELLITUS per A.D.A. criteria. Potassium [Moles/Vol] 3.7 mmol/L 3.5-5.1 [facility] Work Phone: [phone] Sodium [Moles/Vol] 137 mmol/L 136-145 [facility] Work Phone: [phone] Triglyceride [Mass/Vol] 170 mg/dL <199 [facility] Work Phone: [phone] Comment on above: The drugs N-Acetylcy steine and Metamizole may falsely depress this assay.Serum Triglycerides Reference Interval Normal <150 mg/dL Borderline high 150 - 199 mg/dL High 200 - 499 mg/dL Very High > or = 500 mg/dL WBC (Bld) [#/Vol] 9.1 10*3/uL 4.4-11.0 [facility] Work Phone: [phone] Blood erythrocytes count (nu mber/volume)on 04-10-2022 RBC (Bld) [#/Vol] 3.85 10*6/uL 4.2-5.4 [facility] Work Phone: [phone] Blood hemoglobin measurement (mass/volume)on 04-10-2022 Hemoglobin (Bld) [Mass/Vol] 10.2 g/dL 12.0-15.0 [facility] Work Phone: [phone] Blood platelet mean volumeon 04-10-2022 Platelet mean volume (Bld) [Entitic vol] 9.1 fL 6.2-12.0 [facility] Work Phone: [phone] Determination of erythrocyte mean corpuscular volume (MCV)on 04-10-2022 MCV (RBC) [Entitic vol] 82.6 fL 81-99 [facility] Work Phone: [phone] Erythrocyte sedimentation ra abeba 04-10-2022 ESR (Bld) [Velocity] 58 mm/h 0-30 [facility] Work Phone: [phone] Hematocrit Auto (Bld) [Volum e fraction]on 04-10-2022 Hematocrit (Bld) [Volume fraction] 31.8 % 37-47 [facility] Work Phone: [phone] Laboratory - Chemistry and C hemistry - challengeon 04-10-2022 CO2 [Moles/Vol] 32.0 mmol/L 21.0-32.0 [facility] Work Phone: [phone] Cobalamin (Vitamin B12) [Mass/Vol] 216 pg/mL 211-911 [facility] Work Phone: [phone] Urea nitrogen/Creatinine [Mass ratio] 22.7 mg/mg 10-20 [facility] Work Phone: [phone] Laboratory - Hematology and Cell countson 04-10-2022 Erythrocyte distribution width (RBC) [Entitic vol] 39.7 fL 35.1-43.9 [facility] Work Phone: [phone] Erythrocyte distribution width (RBC) [Ratio] 13.2 % 11.6-14.6 [facility] Work Phone: [phone] MCH (RBC) [Entitic mass] 26.5 pg 27.0-32.0 [facility] Work Phone: [phone] MCHC Auto (RBC) [Mass/Vol]on 04-10-2022 MCHC (RBC) [Mass/Vol] 32.1 g/dL 32-36 [facility] Work Phone: No Panel Informationon 04-10 Estimated GFR (MDRD) Amer 146 mL/min >60 [facility] Work Phone: Comment on above: GFR Calc Estimated GFR (MDRD) Non-Af Amer 120 mL/min >60 [facility] Work Phone: Comment on above: Non- GFR Calc Vitamin D 25-Hydroxy 18.5 ng/mL [facility] Work Phone: [phone] Comment on above: Vitamin D 25(OH) Sta tus Range Deficiency <20 ng/mL (50nmol/L) Insufficiency 20 - 30 ng/mL (50 - 75 nmol/L) Sufficiency 30 - 100 ng/mL (75 - 250 nmol/L) Toxicity >100 ng/mL (>250 nmol/L) Platelets bldon 04-10-2022 Platelets (Bld) [#/Vol] 540 10*3/uL 150-450 [facility] Work Phone: [phone] Serum or plasma calcium hussein urement (mass/volume)on 04-10-2022 Calcium [Mass/Vol] 8.9 mg/dL 8.5-10.1 [facility] Work Phone: Serum or plasma cholesterol in HDL measurement (mass/volume)on 04-10-2022 Cholesterol in HDL [Mass/Vol] 23 mg/dL >40 [facility] Work Phone: Comment on above: The drugs N-Acetylcy steine and Metamizole may falsely depress this assay. Reference Range HDL <40 mg/dL Low HDL Cholesterol HDL >or= 60 mg/dL High HDL Cholesterol Serum or plasma cholesterol in VLDL measurement (mass/volume)on 04-10-2022 Cholesterol in VLDL [Mass/Vol] 34 mg/dL 5-40 [facility] Work Phone: [phone] Serum or plasma creatinine m easurement (mass/volume)on 04-10-2022 Creatinine [Mass/Vol] 0.62 mg/dL 0.55-1.02 [facility] Work Phone: Comment on above: The validity of the calculated GFR & GFRAA in patients over 70 years has not been determined. Clinical correlation is essential. Serum or plasma low density lipoprotein (LDL) cholesterol measurement (mass/volume)on 04-10-2022 Cholesterol in LDL [Mass/Vol] 86 mg/dL 0-130 [facility] Work Phone: [phone] Serum or plasma transthyreti n measurement (mass/volume)on 04-10-2022 Prealbumin [Mass/Vol] 11.5 mg/dL 20.0-40.0 [facility] Work Phone: [phone] Serum or plasma urea nitroge n measurement (mass/volume)on 04-10-2022 Urea nitrogen [Mass/Vol] 14 mg/dL 7-18 [facility] Work Phone: [phone] Thin prep Papanicolaou smear with manual screeningon 04-10-2022 Thin prep Papanicolaou smear with manual screening 5 5-15 [facility] Work Phone: [phone] Absolute lymphocyte counton 04-09-2022 Lymphocytes Auto (Unsp spec) [#/Vol] 2.68 10*3/uL 0.83-4.51 [facility] Work Phone: Basophil percentageon 2021 Basophils/100 WBC (Bld) 0.8 % 0-1 [facility] Work Phone: Chloride [Moles/Vol] 102 mmol/L 98-107 [facility] Work Phone: Eosinophils/100 WBC (Bld) 3.2 % 0-5 [facility] Work Phone: Glucose [Mass/Vol] 190 mg/dL 74-106 [facility] Work Phone: Comment on above: Fasting Glucose resu lt greater than or equal to 126 mg/dL suggests DIABETES MELLITUS per A.D.A. criteria. Neutrophils (Bld) [#/Vol] 3.7 10*3/uL 2.0-7.7 [facility] Work Phone: Neutrophils/100 WBC (Bld) 49.3 % 47-70 [facility] Work Phone: Potassium [Moles/Vol] 3.6 mmol/L 3.5-5.1 [facility] Work Phone: Sodium [Moles/Vol] 138 mmol/L 136-145 [facility] Work Phone: WBC (Bld) [#/Vol] 7.5 10*3/uL 4.4-11.0 [facility] Work Phone: Blood erythrocytes count (nu mber/volume)on 04-09-2022 RBC (Bld) [#/Vol] 3.73 10*6/uL 4.2-5.4 [facility] Work Phone: Blood hemoglobin measurement (mass/volume)on 04-09-2022 Hemoglobin (Bld) [Mass/Vol] 9.8 g/dL 12.0-15.0 [facility] Work Phone: Blood lymphocytes/100 leukoc yteson 04-09-2022 Lymphocytes/100 WBC (Bld) 35.8 % 19-41 [facility] Work Phone: Blood monocytes/100 leukocyt eson 04-09-2022 Monocytes/100 WBC (Bld) 9.2 % 0-10 [facility] Work Phone: [phone] Blood platelet mean volumeon 04-09-2022 Platelet mean volume (Bld) [Entitic vol] 8.8 fL 6.2-12.0 [facility] Work Phone: [phone] Determination of erythrocyte mean corpuscular volume (MCV)on 04-09-2022 MCV (RBC) [Entitic vol] 81.8 fL 81-99 [facility] Work Phone: [phone] Glucose Glucometer (BldC) [M ass/Vol]on 04-09-2022 Glucose [Mass/Vol] 251 mg/dL 74-106 [facility] Work Phone: [phone] Comment on above: MANAGEMENT OF PATIEN T CARE PER NURSING PROTOCOL Glucose [Mass/Vol] 281 mg/dL 74-106 [facility] Work Phone: [phone] Comment on above: MANAGEMENT OF PATIEN T CARE PER NURSING PROTOCOL Hematocrit Auto (Bld) [Volum e fraction]on 04-09-2022 Hematocrit (Bld) [Volume fraction] 30.5 % 37-47 [facility] Work Phone: [phone] Laboratory - Chemistry and C hemistry - challengeon 04-09-2022 CO2 [Moles/Vol] 28.0 mmol/L 21.0-32.0 [facility] Work Phone: [phone] Urea nitrogen/Creatinine [Mass ratio] 17.2 mg/mg 10-20 [facility] Work Phone: [phone] Laboratory - Hematology and Cell countson 04-09-2022 Erythrocyte distribution width (RBC) [Entitic vol] 38.9 fL 35.1-43.9 [facility] Work Phone: [phone] Erythrocyte distribution width (RBC) [Ratio] 13.0 % 11.6-14.6 [facility] Work Phone: [phone] Immature granulocytes/100 WBC (Bld) 1.700 % 0.0-0.9 [facility] Work Phone: [phone] Comment on above: IG% - Immature Granu locytes (promyelocytes, myelocytes and metamyelocytes) > 1% indicates that a LEFT SHIFT is Present. MCH (RBC) [Entitic mass] 26.3 pg 27.0-32.0 [facility] Work Phone: [phone] Nucleated RBC/100 WBC (Bld) [Ratio] 0 % 0-5 [facility] Work Phone: [phone] MCHC Auto (RBC) [Mass/Vol]on 04-09-2022 MCHC (RBC) [Mass/Vol] 32.1 g/dL 32-36 [facility] Work Phone: [phone] No Panel Informationon 04-09 Estimated Creatinine Clearance Calc 120.32 ml/min [facility] Work Phone: [phone] Estimated GFR (MDRD) Amer 140 mL/min >60 [facility] Work Phone: [phone] Comment on above: GFR Calc Estimated GFR (MDRD) Non-Af Amer 116 mL/min >60 [facility] Work Phone: [phone] Comment on above: Non- GFR Calc Platelets bldon 04-09-2022 Platelets (Bld) [#/Vol] 478 10*3/uL 150-450 [facility] Work Phone: [phone] Serum or plasma calcium hussein urement (mass/volume)on 04-09-2022 Calcium [Mass/Vol] 8.7 mg/dL 8.5-10.1 [facility] Work Phone: [phone] Serum or plasma creatinine m easurement (mass/volume)on 04-09-2022 Creatinine [Mass/Vol] 0.64 mg/dL 0.55-1.02 [facility] Work Phone: [phone] Comment on above: The validity of the calculated GFR & GFRAA in patients over 70 years has not been determined. Clinical correlation is essential. Serum or plasma urea nitroge n measurement (mass/volume)on 04-09-2022 Urea nitrogen [Mass/Vol] 11 mg/dL 7-18 [facility] Work Phone: [phone] Thin prep Papanicolaou smear with manual screeningon 04-09-2022 Thin prep Papanicolaou smear with manual screening 8 5-15 [facility] Work Phone: [phone] Blood manual differential co mment interpretation (narrative result)on 04-08-2022 Manual differential comment Franky (Bld) [Interp] SCANNED [facility] Work Phone: [phone] Blood platelet adequacy dete ction by light microscopyon 04-08-2022 Platelets LM Ql (Bld) ADEQUATE ADEQ [facility] Work Phone: [phone] Vancomycin troughon 04-08-20 Vancomycin trough [Mass/Vol] 10.2 ug/mL 5.0-15.0 [facility] Work Phone: Comment on above: VANCOMYCIN STANDARED DRUG THERAPY TROUGH LEVEL: 5.0 - 15.0 mg/L VANCOMYCIN HIGH INTENSITY THERAPY TROUGH LEVEL: 15.0 - 20.0 mg/L High Intensity therapy recommended for serious lifethreatening infections include:- Agkpnaelsj-Wrohmlhmtvja-Hktzvncfh (Ventilator/Healtcare Associated)-Sepsis PLEASE CONTACT PHARMACY SERVICES (#[id number]) FOR INTERPRETATIONOF RESULTS. Basophil percentageon 2021 Bilirubin [Mass/Vol] 0.70 mg/dL 0.20-1.00 [facility] Work Phone: Comment on above: For patients on eltr ombopag therapy, use of Dimension [place] TBIL is not recommended. Protein [Mass/Vol] 7.7 g/dL 6.4-8.2 [facility] Work Phone: [phone] Laboratory - Chemistry and C hemistry - challengeon 04-07-2022 ALP [Catalytic activity/Vol] 121 U/L 45-117 [facility] Work Phone: [phone] ALT [Catalytic activity/Vol] 9 U/L 13-56 [facility] Work Phone: [phone] Globulin (S) [Mass/Vol] 5.4 g/dL 2.2-4.2 [facility] Work Phone: [phone] Serum or plasma albumin hussein urement (mass/volume)on 04-07-2022 Albumin [Mass/Vol] 2.3 g/dL 3.2-5.0 [facility] Work Phone: Serum or plasma albumin/glob ulin mass ratioon 04-07-2022 Albumin/Globulin [Mass ratio] 0.4 {ratio} 0.9-2.4 [facility] Work Phone: Thin prep Papanicolaou smear with manual screeningon 04-07-2022 Thin prep Papanicolaou smear with manual screening 6 U/L 15-37 [facility] Work Phone: Absolute lymphocyte counton 04-06-2022 Lymphocytes Auto (Unsp spec) [#/Vol] 2.55 10*3/uL 0.83-4.51 [facility] Work Phone: Basophil percentageon 2021 Basophils/100 WBC (Bld) 0.2 % 0-1 [facility] Work Phone: Chloride [Moles/Vol] 94 mmol/L 98-107 [facility] Work Phone: Eosinophils/100 WBC (Bld) 0.0 % 0-5 [facility] Work Phone: Glucose [Mass/Vol] 396 mg/dL 74-106 [facility] Work Phone: Comment on above: Glucose result great er than or equal to 200 mg/dLsuggests DIABETES MELLITUS per A.D.A. criteria. Neutrophils (Bld) [#/Vol] 18.0 10*3/uL 2.0-7.7 [facility] Work Phone: Neutrophils/100 WBC (Bld) 80.1 % 47-70 [facility] Work Phone: Potassium [Moles/Vol] 3.8 mmol/L 3.5-5.1 [facility] Work Phone: Sodium [Moles/Vol] 130 mmol/L 136-145 [facility] Work Phone: WBC (Bld) [#/Vol] 22.4 10*3/uL 4.4-11.0 [facility] Work Phone: Beta hCG serum qualon 2021 Beta HCG ( test) Ql Negative [facility] Work Phone: Blood erythrocytes count (nu mber/volume)on 04-06-2022 RBC (Bld) [#/Vol] 4.48 10*6/uL 4.2-5.4 [facility] Work Phone: Blood hemoglobin measurement (mass/volume)on 04-06-2022 Hemoglobin (Bld) [Mass/Vol] 12.0 g/dL 12.0-15.0 [facility] Work Phone: Blood lymphocytes/100 leukoc yteson 04-06-2022 Lymphocytes/100 WBC (Bld) 11.4 % 19-41 [facility] Work Phone: Blood monocytes/100 leukocyt eson 04-06-2022 Monocytes/100 WBC (Bld) 7.1 % 0-10 [facility] Work Phone: Blood platelet mean volumeon 04-06-2022 Platelet mean volume (Bld) [Entitic vol] 9.5 fL 6.2-12.0 [facility] Work Phone: Determination of erythrocyte mean corpuscular volume (MCV)on 04-06-2022 MCV (RBC) [Entitic vol] 82.1 fL 81-99 [facility] Work Phone: Erythrocyte sedimentation ra abeba 04-06-2022 ESR (Bld) [Velocity] 118 mm/h 0-30 [facility]: Hematocrit Auto (Bld) [Volum e fraction]on 04-06-2022 Hematocrit (Bld) [Volume fraction] 36.8 % 37-47 [facility] Work Phone: Laboratory - Chemistry and C hemistry - challengeon 04-06-2022 CO2 [Moles/Vol] 25.0 mmol/L 21.0-32.0 [facility] Work Phone: Urea nitrogen/Creatinine [Mass ratio] 5.9 mg/mg 10-20 [facility] Work Phone: [phone] Laboratory - Hematology and Cell countson 04-06-2022 Erythrocyte distribution width (RBC) [Entitic vol] 39.4 fL 35.1-43.9 [facility] Work Phone: [phone] Erythrocyte distribution width (RBC) [Ratio] 13.2 % 11.6-14.6 [facility] Work Phone: [phone] Immature granulocytes/100 WBC (Bld) 1.200 % 0.0-0.9 [facility] Work Phone: [phone] Comment on above: IG% - Immature Granu locytes (promyelocytes, myelocytes and metamyelocytes) > 1% indicates that a LEFT SHIFT is Present. MCH (RBC) [Entitic mass] 26.8 pg 27.0-32.0 [facility] Work Phone: [phone] Nucleated RBC/100 WBC (Bld) [Ratio] 0 % 0-5 [facility] Work Phone: [phone] MCHC Auto (RBC) [Mass/Vol]on 04-06-2022 MCHC (RBC) [Mass/Vol] 32.6 g/dL 32-36 [facility] Work Phone: No Panel Informationon 04-06 Estimated Creatinine Clearance Calc 76.25 ml/min [facility] Work Phone: [phone] Estimated GFR (MDRD) Amer 83 mL/min >60 [facility] Work Phone: [phone] Comment on above: GFR Calc Estimated GFR (MDRD) Non-Af Amer 68 mL/min >60 [facility] Work Phone: [phone] Comment on above: Non- GFR Calc Platelets bldon 04-06-2022 Platelets (Bld) [#/Vol] 495 10*3/uL 150-450 [facility] Work Phone: Review by pathologiston 03-13 Pathologist review Farnky (Unsp spec) [Interp] November [facility] Work Phone: Pathologist review Franky (Unsp spec) [Interp] Reviewed [facility] Work Phone: Comment on above: Previous reported re sult: Zahraa waite Edited by: RGOHEIDI on 04/07/22:1303Neutrophilic leukocytosis with left shift. Thrombocytosis.Clinical correlation necessary.Patrick Castellon M.D. 04/07/22 AMENDED REPORT 04/07/22 1303 PATH REV previously reported as: Zahraa waite Serum or plasma C reactive p rotein measurement (mass/volume)on 04-06-2022 CRP [Mass/Vol] 321.00 mg/L 0.0-3.0 [facility] Work Phone: Comment on above: C-Reactive Protein ( CRP) provides useful information for thediagnosis, therapy and monitoring of inflammatory processesand associated diseases. For the evaluation of Relative Riskfor Cardiovascular Disease, a High Sensitivity CRP (HSCRP)should be ordered. Serum or plasma acetone hussein urement (mass/volume)on 04-06-2022 Acetone [Mass/Vol] Negative NEG [facility] Work Phone: Serum or plasma calcium hussein urement (mass/volume)on 04-06-2022 Calcium [Mass/Vol] 9.7 mg/dL 8.5-10.1 [facility] Work Phone: Serum or plasma creatinine m easurement (mass/volume)on 04-06-2022 Creatinine [Mass/Vol] 1.01 mg/dL 0.55-1.02 [facility] Work Phone: Comment on above: The validity of the calculated GFR & GFRAA in patients over 70 years has not been determined. Clinical correlation is essential. Serum or plasma urea nitroge n measurement (mass/volume)on 04-06-2022 Urea nitrogen [Mass/Vol] 6 mg/dL 7-18 [facility] Work Phone: Thin prep Papanicolaou smear with manual screeningon 04-06-2022 Thin prep Papanicolaou smear with manual screening 11 5-15 [facility] Work Phone: Whole blood hemoglobin A1c/t otal hemoglobin ratio (mass fraction)on 04-06-2022 HbA1c (Bld) [Mass fraction] 10.0 % 3.8-5.6 [facility] Work Phone: Comment on above: Normal < 5.7 % Predi abetic 5.7 - 6.4 % Diabetic >or= 6.5 % Please note range changes. Absolute lymphocyte counton 04-05-2022 Lymphocytes Auto (Unsp spec) [#/Vol] 2.49 10*3/uL 0.83-4.51 [facility] Work Phone: Basophil percentageon 2021 Basophils/100 WBC (Bld) 0.2 % 0-1 [facility] Work Phone: Chloride [Moles/Vol] 93 mmol/L 98-107 [facility] Work Phone: Eosinophils/100 WBC (Bld) 0.2 % 0-5 [facility] Work Phone: Glucose [Mass/Vol] 389 mg/dL 74-106 [facility] Work Phone: Comment on above: Glucose result great er than or equal to 200 mg/dLsuggests DIABETES MELLITUS per A.D.A. criteria. Lactate [Moles/Vol] 2.5 mmol/L 0.4-2.0 [facility] Work Phone: Comment on above: Critical Result(s) C alled at: 13:33:37 04/05/2022 by: Gayathri Torres. Results read back by same. Neutrophils (Bld) [#/Vol] 13.7 10*3/uL 2.0-7.7 [facility] Work Phone: Neutrophils/100 WBC (Bld) 78.3 % 47-70 [facility] Work Phone: Potassium [Moles/Vol] 4.0 mmol/L 3.5-5.1 [facility] Work Phone: Sodium [Moles/Vol] 132 mmol/L 136-145 [facility] Work Phone: WBC (Bld) [#/Vol] 17.5 10*3/uL 4.4-11.0 [facility]: [phone] Blood erythrocytes count (nu mber/volume)on 04-05-2022 RBC (Bld) [#/Vol] 4.50 10*6/uL 4.2-5.4 [facility] Work Phone: [phone] Blood hemoglobin measurement (mass/volume)on 04-05-2022 Hemoglobin (Bld) [Mass/Vol] 12.7 g/dL 12.0-15.0 [facility] Work Phone: [phone] Blood lymphocytes/100 leukoc yteson 04-05-2022 Lymphocytes/100 WBC (Bld) 14.2 % 19-41 [facility] Work Phone: [phone] Blood monocytes/100 leukocyt eson 04-05-2022 Monocytes/100 WBC (Bld) 6.3 % 0-10 [facility] Work Phone: [phone] Blood platelet mean volumeon 04-05-2022 Platelet mean volume (Bld) [Entitic vol] 9.7 fL 6.2-12.0 [facility] Work Phone: [phone] Determination of erythrocyte mean corpuscular volume (MCV)on 04-05-2022 MCV (RBC) [Entitic vol] 82.2 fL 81-99 [facility] Work Phone: [phone] Hematocrit Auto (Bld) [Volum e fraction]on 04-05-2022 Hematocrit (Bld) [Volume fraction] 37.0 % 37-47 [facility] Work Phone: Laboratory - Chemistry and C hemistry - challengeon 04-05-2022 CO2 [Moles/Vol] 28.0 mmol/L 21.0-32.0 [facility] Work Phone: [phone] Urea nitrogen/Creatinine [Mass ratio] 8.5 mg/mg 10-20 [facility] Work Phone: [phone] Laboratory - Hematology and Cell countson 09-25-2022 Erythrocyte distribution width (RBC) [Entitic vol] 40.1 fL 35.1-43.9 [facility] Work Phone: [phone] Erythrocyte distribution width (RBC) [Ratio] 13.5 % 11.6-14.6 [facility] Work Phone: [phone] Immature granulocytes/100 WBC (Bld) 0.800 % 0.0-0.9 [facility] Work Phone: [phone] Comment on above: IG% - Immature Granu locytes (promyelocytes, myelocytes and metamyelocytes) > 1% indicates that a LEFT SHIFT is Present. MCH (RBC) [Entitic mass] 28.2 pg 27.0-32.0 [facility] Work Phone: [phone] Nucleated RBC/100 WBC (Bld) [Ratio] 0 % 0-5 [facility] Work Phone: [phone] MCHC Auto (RBC) [Mass/Vol]on 04-05-2022 MCHC (RBC) [Mass/Vol] 34.3 g/dL 32-36 [facility] Work Phone: No Panel Informationon 04-05 Estimated Creatinine Clearance Calc 92.78 ml/min [facility] Work Phone: [phone] Estimated GFR (MDRD) Amer 104 mL/min >60 [facility] Work Phone: [phone] Comment on above: GFR Calc Estimated GFR (MDRD) Non-Af Amer 86 mL/min >60 [facility] Work Phone: [phone] Comment on above: Non- GFR Calc Platelets bldon 04-05-2022 Platelets (Bld) [#/Vol] 444 10*3/uL 150-450 [facility] Work Phone: [phone] Serum or plasma calcium hussein urement (mass/volume)on 04-05-2022 Calcium [Mass/Vol] 9.2 mg/dL 8.5-10.1 [facility] Work Phone: [phone] Serum or plasma creatinine m easurement (mass/volume)on 04-05-2022 Creatinine [Mass/Vol] 0.83 mg/dL 0.55-1.02 [facility] Work Phone: Comment on above: The validity of the calculated GFR & GFRAA in patients over 70 years has not been determined. Clinical correlation is essential. Serum or plasma urea nitroge n measurement (mass/volume)on 04-05-2022 Urea nitrogen [Mass/Vol] 7 mg/dL 7-18 [facility] Work Phone: Thin prep Papanicolaou smear with manual screeningon 04-05-2022 Thin prep Papanicolaou smear with manual screening 11 5-15 [facility] Work Phone: XR CHEST 2V FRONTAL/LATon [facility] XR Chest PA and Lateralon IMPRESSION: Within normal limits. No acute radiographic abnormality. [place] Worker Helper: OLGA Transcribe Date/Time: Mar 23 2022 1:11P Dictated by : CINDY OBRIEN MD This examination was interpreted and the report reviewed and electronically signed by: CINDY OBRIEN MD on Mar 23 2022 1:14PM [facility] DIVISION OF RADIOLOGY * * *Final [...] soft tissues: Unremarkable. DIVISION OF RADIOLOGY Provider, [facility] Fabienne [facility] - 03/23/2022 * * *Final Report* [...] Within normal limits. No acute radiographic abnormality. [place] Worker Helper: PSCB Transcribe Date/Time: Mar 23 2022 1:11P Dictated by : CINDY OBRIEN MD This examination was interpreted and the report reviewed and electronically signed by: CINDY OBRIEN MD on Mar 23 2022 1:14PM [facility] Radiology Study observation (narrative) [facility] XR Chest PA and LateralOrder ed By: Ccf Provider on 03-23-2022 [facility] Absolute lymphocyte counton 02-01-2022 Lymphocytes Auto (Unsp spec) [#/Vol] 3.62 10*3/uL 0.83-4.51 [facility] Work Phone: Basophil percentageon 2021 Basophil percentage 0-5 SEEN /hpf 0-5 [facility] Work Phone: Basophils/100 WBC (Bld) 0.3 % 0-1 [facility] Work Phone: Bilirubin [Mass/Vol] 0.40 mg/dL 0.20-1.00 [facility] Work Phone: Comment on above: For patients on eltr ombopag therapy, use of Dimension [place] TBIL is not recommended. Chloride [Moles/Vol] 98 mmol/L 98-107 [facility] Work Phone: Eosinophils/100 WBC (Bld) 0.5 % 0-5 [facility] Work Phone: Glucose [Mass/Vol] 334 mg/dL 74-106 [facility] Work Phone: Comment on above: Glucose result great er than or equal to 200 mg/dLsuggests DIABETES MELLITUS per A.D.A. criteria. Lactate [Moles/Vol] 2.5 mmol/L 0.4-2.0 [facility] Work Phone: Comment on above: Critical Result(s) C alled at: 13:53:33 02/01/2022 by: Gayathri Whiting to [place]. Results read back by same. Neutrophils (Bld) [#/Vol] 5.5 10*3/uL 2.0-7.7 [facility] Work Phone: [phone] Neutrophils/100 WBC (Bld) 54.6 % 47-70 [facility] Work Phone: [phone] Potassium [Moles/Vol] 3.2 mmol/L 3.5-5.1 [facility] Work Phone: [phone] Protein [Mass/Vol] 7.2 g/dL 6.4-8.2 [facility] Work Phone: [phone] Sodium [Moles/Vol] 131 mmol/L 136-145 [facility] Work Phone: WBC (Bld) [#/Vol] 10.1 10*3/uL 4.4-11.0 [facility] Work Phone: Beta hCG serum qualon 2021 Beta HCG ( test) Ql Negative [facility] Work Phone: [phone] Bilirubin Test strip Ql (U)o n 02-01-2022 Bilirubin Ql (U) Negative Negative [facility] Work Phone: [phone] Blood erythrocytes count (nu mber/volume)on 02-01-2022 RBC (Bld) [#/Vol] 4.45 10*6/uL 4.2-5.4 [facility] Work Phone: [phone] Blood hemoglobin measurement (mass/volume)on 02-01-2022 Hemoglobin (Bld) [Mass/Vol] 11.7 g/dL 12.0-15.0 [facility] Work Phone: [phone] Blood lymphocytes/100 leukoc yteson 02-01-2022 Lymphocytes/100 WBC (Bld) 35.9 % 19-41 [facility] Work Phone: Blood monocytes/100 leukocyt eson 02-01-2022 Monocytes/100 WBC (Bld) 7.8 % 0-10 [facility] Work Phone: Blood platelet mean volumeon 02-01-2022 Platelet mean volume (Bld) [Entitic vol] 9.7 fL 6.2-12.0 [facility] Work Phone: Determination of erythrocyte mean corpuscular volume (MCV)on 02-01-2022 MCV (RBC) [Entitic vol] 80.2 fL 81-99 [facility] Work Phone: Hematocrit Auto (Bld) [Volum e fraction]on 02-01-2022 Hematocrit (Bld) [Volume fraction] 35.7 % 37-47 [facility] Work Phone: Ketones Test strip Ql (U)on 02-01-2022 Ketones Ql (U) Negative Negative [facility] Work Phone: Laboratory - Chemistry and C hemistry - challengeon 02-01-2022 ALP [Catalytic activity/Vol] 79 U/L 45-117 [facility] Work Phone: ALT [Catalytic activity/Vol] 12 U/L 13-56 [facility] Work Phone: CO2 [Moles/Vol] 24.0 mmol/L 21.0-32.0 [facility] Work Phone: Globulin (S) [Mass/Vol] 4.5 g/dL 2.2-4.2 [facility] Work Phone: Lipase [Catalytic activity/Vol] 154 U/L 73-393 [facility] Work Phone: [phone] Urea nitrogen/Creatinine [Mass ratio] 6.9 mg/mg 10-20 [facility] Work Phone: Laboratory - Hematology and Cell countson 02-01-2022 Erythrocyte distribution width (RBC) [Entitic vol] 39.5 fL 35.1-43.9 [facility] Work Phone: [phone] Erythrocyte distribution width (RBC) [Ratio] 13.7 % 11.6-14.6 [facility] Work Phone: [phone] Immature granulocytes/100 WBC (Bld) 0.900 % 0.0-0.9 [facility] Work Phone: Comment on above: IG% - Immature Granu locytes (promyelocytes, myelocytes and metamyelocytes) > 1% indicates that a LEFT SHIFT is Present. MCH (RBC) [Entitic mass] 26.3 pg 27.0-32.0 [facility] Work Phone: [phone] Nucleated RBC/100 WBC (Bld) [Ratio] 0 % 0-5 [facility] Work Phone: [phone] MCHC Auto (RBC) [Mass/Vol]on 02-01-2022 MCHC (RBC) [Mass/Vol] 32.8 g/dL 32-36 [facility] Work Phone: [phone] Mucus LM Ql (Urine sed)on Mucus Ql (Urine sed) 0 SEEN /hpf [facility] Work Phone: [phone] Nitrite Test strip Ql (U)on 02-01-2022 Nitrite Ql (U) Negative Negative [facility] Work Phone: [phone] Panel Informationon 02-01 Estimated Creatinine Clearance Calc 75.50 ml/min [facility] Work Phone: [phone] Estimated GFR (MDRD) Amer 82 mL/min >60 [facility] Work Phone: [phone] Comment on above: GFR Calc Estimated GFR (MDRD) Non-Af Amer 68 mL/min >60 [facility] Work Phone: [phone] Comment on above: Non- GFR Calc Platelets bldon 02-01-2022 Platelets (Bld) [#/Vol] 368 10*3/uL 150-450 [facility] Work Phone: [phone] Protein Test strip Ql (U)on 02-01-2022 Protein Ql (U) 15 mg/dl Negative [facility] Work Phone: [phone] Serum or plasma albumin hussein urement (mass/volume)on 02-01-2022 Albumin [Mass/Vol] 2.7 g/dL 3.2-5.0 [facility] Work Phone: [phone] Serum or plasma albumin/glob ulin mass ratioon 02-01-2022 Albumin/Globulin [Mass ratio] 0.6 {ratio} 0.9-2.4 [facility] Work Phone: [phone] Serum or plasma calcium hussein urement (mass/volume)on 02-01-2022 Calcium [Mass/Vol] 8.7 mg/dL 8.5-10.1 [facility] Work Phone: [phone] Serum or plasma creatinine m easurement (mass/volume)on 02-01-2022 Creatinine [Mass/Vol] 1.02 mg/dL 0.55-1.02 [facility] Work Phone: Comment on above: The validity of the calculated GFR & GFRAA in patients over 70 years has not been determined. Clinical correlation is essential. Serum or plasma urea nitroge n measurement (mass/volume)on 02-01-2022 Urea nitrogen [Mass/Vol] 7 mg/dL 7-18 [facility] Work Phone: Squamous epithelial cells de tection in urine sediment by light microscopyon 02-01-2022 Epithelial cells.squamous LM Ql (Urine sed) 0-5 SEEN /hpf 5-10 [facility] Work Phone: Thin prep Papanicolaou smear with manual screeningon 02-01-2022 Thin prep Papanicolaou smear with manual screening 8 U/L 15-37 [facility] Work Phone: [phone] Thin prep Papanicolaou smear with manual screening 9 5-15 [facility] Work Phone: [phone] Urine blood detectionon 01-10 RBC Ql (U) 50 /ul Negative [facility] Work Phone: [phone] RBC Ql (U) 0-5 SEEN /hpf 0-5 [facility] Work Phone: Urine clarityon 02-01-2022 Clarity (U) Clear Clear [facility] Work Phone: Urine color determinationon 02-01-2022 Color (U) Yellow Yellow [facility] Work Phone: Urine glucose detectionon Glucose Ql (U) 1000 mg/dl Normal [facility] Work Phone: Urine leukocyte esterase det ection by dipstickon 02-01-2022 Leukocyte esterase Test strip Ql (U) 25 /ul Negative [facility] Work Phone: Urine pHon 02-01-2022 pH (U) 5.0 [pH] 5.0 - 8.0 [facility] Work Phone: Urine sediment bacteria coun t by microscopy (number/high power field)on 02-01-2022 Bacteria LM.HPF (Urine sed) [#/Area] 0 /[HPF] None Seen [facility] Work Phone: Urine specific gravity measu rementon 02-01-2022 Specific gravity (U) [Rel density] 1.020 1.002-1.030 [facility] Work Phone: Urobilinogen Auto test strip Ql (U)on 02-01-2022 Urobilinogen Ql (U) Normal mg/dl Normal [facility] Work Phone: Absolute lymphocyte counton 01-30-2022 Lymphocytes Auto (Unsp spec) [#/Vol] 5.16 10*3/uL 0.83-4.51 [facility] Work Phone: Albumin Elph [Mass/Vol]on Albumin [Mass/Vol] 3.6 g/dL 2.9-4.4 [facility] Work Phone: Atypical perinuclear antineu trophil cytoplasmic antibodies measurementon 01-30-2022 Neutrophil cytoplasmic Ab.perinuclear.atypical IF (S) [Titer] <1:20 titer Neg:<1:20 [facility] Work Phone: Comment on above: The atypical pANCA p attern has been observed in asignificant percentage of patients with ulcerative colitis,primary sclerosing cholangitis and autoimmune hepatitis.Performed at: - [facility] [id number] [place], [place] [id number] Director: Wade Lazo PhD, Phone: [phone] at: [facility] [id number] Director: Philip Robles MD, Phone: [phone] Basophil percentageon 2021 Amylase [Catalytic activity/Vol] 19 U/L 25-115 [facility] Work Phone: Basophil percentage < 0.2 AI 0.0-0.9 [facility] Work Phone: Basophils/100 WBC (Bld) 0.3 % 0-1 [facility] Work Phone: Eosinophils/100 WBC (Bld) 0.5 % 0-5 [facility] Work Phone: Neutrophils (Bld) [#/Vol] 8.8 10*3/uL 2.0-7.7 [facility] Work Phone: Neutrophils/100 WBC (Bld) 57.5 % 47-70 [facility] Work Phone: WBC (Bld) [#/Vol] 15.3 10*3/uL 4.4-11.0 [facility] Work Phone: Blood erythrocytes count (nu mber/volume)on 01-30-2022 RBC (Bld) [#/Vol] 5.33 10*6/uL 4.2-5.4 [facility] Work Phone: Blood hemoglobin measurement (mass/volume)on 01-30-2022 Hemoglobin (Bld) [Mass/Vol] 13.9 g/dL 12.0-15.0 [facility] Work Phone: Blood lymphocytes/100 leukoc yteson 01-30-2022 Lymphocytes/100 WBC (Bld) 33.7 % 19-41 [facility] Work Phone: Blood manual differential co mment interpretation (narrative result)on 01-30-2022 Manual differential comment Franky (Bld) [Interp] SCANNED [facility] Work Phone: Comment on above: LYMPHOCYTOSIS NOTED Blood monocytes/100 leukocyt eson 01-30-2022 Monocytes/100 WBC (Bld) 7.2 % 0-10 [facility] Work Phone: Blood platelet mean volumeon 01-30-2022 Platelet mean volume (Bld) [Entitic vol] 9.5 fL 6.2-12.0 [facility] Work Phone: Determination of erythrocyte mean corpuscular volume (MCV)on 01-30-2022 MCV (RBC) [Entitic vol] 80.3 fL 81-99 [facility] Work Phone: Erythrocyte sedimentation ra abeba 01-30-2022 ESR (Bld) [Velocity] 81 mm/h 0-30 [facility] Work Phone: Hematocrit Auto (Bld) [Volum e fraction]on 01-30-2022 Hematocrit (Bld) [Volume fraction] 42.8 % 37-47 [facility] Work Phone: Interpretation of serum or p lasma protein pattern by immunofixation (narrative resulton 01-30-2022 Protein Fractions Immunofixation Franky [Interp] See comment [facility] Work Phone: Comment on above: NOT OBSERVED Laboratory - Chemistry and C hemistry - challengeon 01-30-2022 Cobalamin (Vitamin B12) [Mass/Vol] 318 pg/mL 211-911 [facility] Work Phone: [phone] Lipase [Catalytic activity/Vol] 150 U/L 73-393 [facility] Work Phone: [phone] Laboratory - Hematology and Cell countson 01-30-2022 Erythrocyte distribution width (RBC) [Entitic vol] 40.0 fL 35.1-43.9 [facility] Work Phone: [phone] Erythrocyte distribution width (RBC) [Ratio] 14.0 % 11.6-14.6 [facility] Work Phone: Immature granulocytes/100 WBC (Bld) 0.800 % 0.0-0.9 [facility] Work Phone: [phone] Comment on above: IG% - Immature Granu locytes (promyelocytes, myelocytes and metamyelocytes) > 1% indicates that a LEFT SHIFT is Present. MCH (RBC) [Entitic mass] 26.1 pg 27.0-32.0 [facility] Work Phone: [phone] Nucleated RBC/100 WBC (Bld) [Ratio] 0 % 0-5 [facility] Work Phone: [phone] MCHC Auto (RBC) [Mass/Vol]on 01-30-2022 MCHC (RBC) [Mass/Vol] 32.5 g/dL 32-36 [facility] Work Phone: No Panel Informationon 01-30 Addendum Document Comment . [facility] Work Phone: [phone] Comment on above: Protein electrophore sis scan will follow via computer,mail, or shaft tender delivery. Centromere B Antibody <0.2 AI 0.0-0.9 [facility] Work Phone: [phone] Endomysial IgA Antibody Negative Negative [facility] Work Phone: [phone] Immunoglobulin E 119 IU/mL 6-495 [facility] Work Phone: [phone] PROFESSOR OF EXERCISE SCIENCE Antibody <0.2 AI 0.0-0.9 [facility] Work Phone: [phone] Thyroid Stimulating Hormone (TSH) 2.21 uIU/mL 0.358-3.74 [facility] Work Phone: Platelets bldon 01-30-2022 Platelets (Bld) [#/Vol] 484 10*3/uL 150-450 [facility] Work Phone: [phone] Serum DNA double strand anti body assay (units/volume)on 01-30-2022 DNA double strand Ab Qn (S) [IU]/mL 0-9 [facility] Work Phone: [phone] Comment on above: Negative <5 Equivoca l 5 - 9 Positive >9 Serum Neva-1 antibody assay (u nits/volume)on 01-30-2022 Neva-1 extractable nuclear Ab Qn (S) <0.2 AI 0.0-0.9 [facility] Work Phone: Serum Scl-70 extractable nuc lear antibody assay (units/volume)on 01-30-2022 SCL-70 extractable nuclear Ab Qn (S) <0.2 AI 0.0-0.9 [facility] Work Phone: Serum Jang extractable nucl ear antibody detectionon 01-30-2022 Jang extractable nuclear Ab Ql (S) <0.2 AI 0.0-0.9 [facility] Work Phone: [phone] Serum nlcro-4-trginjyz measu rement by electrophoresison 01-30-2022 Alpha 1 globulin Elph [Mass/Vol] 0.2 g/dL 0.0-0.4 [facility] Work Phone: Alpha 1 globulin Elph [Mass/Vol] 1.6 g/dL 0.4-1.0 [facility] Work Phone: Serum classic neutrophil cyt oplasmic antibody assay (units/volume)on 01-30-2022 Neutrophil cytoplasmic Ab.classic Qn (S) 1:80 titer Neg:<1:20 [facility] Work Phone: Serum globulin measurement ( mass/volume)on 01-30-2022 Globulin (S) [Mass/Vol] 4.8 g/dL 2.2-3.9 [facility] Work Phone: Serum or plasma C reactive p rotein measurement (mass/volume)on 01-30-2022 CRP [Mass/Vol] 53.10 mg/L 0.0-3.0 [facility] Work Phone: Comment on above: C-Reactive Protein ( CRP) provides useful information for thediagnosis, therapy and monitoring of inflammatory processesand associated diseases. For the evaluation of Relative Riskfor Cardiovascular Disease, a High Sensitivity CRP (HSCRP)should be ordered. Serum or plasma IgA measurem ent (mass/volume)on 01-30-2022 IgA [Mass/Vol] 478 mg/dL 87-352 [facility] Work Phone: Serum or plasma IgG measurem ent (mass/volume)on 01-30-2022 IgG [Mass/Vol] 1630 mg/dL [phone] [facility] Work Phone: Serum or plasma IgM measurem ent (mass/volume)on 01-30-2022 IgM [Mass/Vol] 294 mg/dL 26-217 [facility] Work Phone: Serum or plasma beta globuli n measurement by electrophoresis (mass/volume)on 01-30-2022 Beta globulin Elph [Mass/Vol] 1.0 g/dL 0.7-1.3 [facility] Work Phone: Serum or plasma folate measu rement (mass/volume)on 01-30-2022 Folate [Mass/Vol] 13.50 ng/mL 3.1-55.4 [facility] Work Phone: Serum or plasma gamma globul in measurement by electrophoresis (mass/volume)on 01-30-2022 Gamma globulin Elph [Mass/Vol] 1.9 g/dL 0.4-1.8 [facility] Work Phone: Serum or plasma immunoelectr ophoresis interpretation (nominal result)on 01-30-2022 Interpretation IEP [Interp] Comment . [facility] Work Phone: Comment on above: No monoclonality det ected. Serum perinuclear neutrophil cytoplasmic antibody titer by immunofluorescenceon 01-30-2022 Neutrophil cytoplasmic Ab.perinuclear IF (S) [Titer] <1:20 titer Neg:<1:20 [facility] Work Phone: Comment on above: [...] only by EIA. Ref. AM J Clin [id number];111:[id number]. Serum tissue transglutaminas e IgA antibody assay (units/volume)on 01-30-2022 tTG IgA Qn (S) <2 U/mL 0-3 [facility] Work Phone: Comment on above: Negative 0 - 3 Weak Positive 4 - 10 Positive >10 Tissue Transglutaminase (tTG) has been identified as the endomysial antigen. Studies have demonstr- ated that endomysial IgA antibodies have over 99% specificity for gluten sensitive enteropathy. Thin prep Papanicolaou smear with manual screeningon 01-30-2022 Thin prep Papanicolaou smear with manual screening 153 U/L 84-246 [facility] Work Phone: Thin prep Papanicolaou smear with manual screening 0.8 0.7-1.7 [facility] Work Phone: Total protein bloodon 2021 Protein [Mass/Vol] 8.4 g/dL 6.0-8.5 [facility] Work Phone: Whole blood hemoglobin A1c/t otal hemoglobin ratio (mass fraction)on 01-30-2022 HbA1c (Bld) [Mass fraction] 11.4 % 3.8-5.6 [facility] Work Phone: Comment on above: Normal < 5.7 % Predi abetic 5.7 - 6.4 % Diabetic >or= 6.5 % Please note range changes. Absolute lymphocyte counton 01-26-2022 Lymphocytes Auto (Unsp spec) [#/Vol] 4.70 10*3/uL 0.83-4.51 [facility] Work Phone: Basophil percentageon 2021 Basophils/100 WBC (Bld) 0.4 % 0-1 [facility] Work Phone: Bilirubin [Mass/Vol] 0.40 mg/dL 0.20-1.00 [facility]: Comment on above: For patients on eltr ombopag therapy, use of Dimension [place] TBIL is not recommended. Chloride [Moles/Vol] 101 mmol/L 98-107 [facility] Work Phone: Eosinophils/100 WBC (Bld) 0.2 % 0-5 [facility] Work Phone: Glucose [Mass/Vol] 320 mg/dL 74-106 [facility] Work Phone: Comment on above: Glucose result great er than or equal to 200 mg/dLsuggests DIABETES MELLITUS per A.D.A. criteria. Neutrophils (Bld) [#/Vol] 5.6 10*3/uL 2.0-7.7 [facility] Work Phone: Neutrophils/100 WBC (Bld) 50.6 % 47-70 [facility] Work Phone: Potassium [Moles/Vol] 3.6 mmol/L 3.5-5.1 [facility] Work Phone: Protein [Mass/Vol] 8.5 g/dL 6.4-8.2 [facility] Work Phone: Sodium [Moles/Vol] 136 mmol/L 136-145 [facility] Work Phone: WBC (Bld) [#/Vol] 11.1 10*3/uL 4.4-11.0 [facility] Work Phone: Blood erythrocytes count (nu mber/volume)on 01-26-2022 RBC (Bld) [#/Vol] 4.99 10*6/uL 4.2-5.4 [facility] Work Phone: Blood hemoglobin measurement (mass/volume)on 01-26-2022 Hemoglobin (Bld) [Mass/Vol] 12.9 g/dL 12.0-15.0 [facility] Work Phone: Blood lymphocytes/100 leukoc yteson 01-26-2022 Lymphocytes/100 WBC (Bld) 42.2 % 19-41 [facility] Work Phone: Blood monocytes/100 leukocyt eson 01-26-2022 Monocytes/100 WBC (Bld) 5.9 % 0-10 [facility] Work Phone: [phone] Blood platelet mean volumeon 01-26-2022 Platelet mean volume (Bld) [Entitic vol] 9.5 fL 6.2-12.0 [facility] Work Phone: Determination of erythrocyte mean corpuscular volume (MCV)on 01-26-2022 MCV (RBC) [Entitic vol] 77.8 fL 81-99 [facility] Work Phone: [phone] Hematocrit Auto (Bld) [Volum e fraction]on 01-26-2022 Hematocrit (Bld) [Volume fraction] 38.8 % 37-47 [facility] Work Phone: Laboratory - Chemistry and C hemistry - challengeon 01-26-2022 ALP [Catalytic activity/Vol] 85 U/L 45-117 [facility] Work Phone: [phone] ALT [Catalytic activity/Vol] 14 U/L 13-56 [facility] Work Phone: [phone] CO2 [Moles/Vol] 26.0 mmol/L 21.0-32.0 [facility] Work Phone: Globulin (S) [Mass/Vol] 5.3 g/dL 2.2-4.2 [facility] Work Phone: [phone] Lipase [Catalytic activity/Vol] 179 U/L 73-393 [facility] Work Phone: [phone] Urea nitrogen/Creatinine [Mass ratio] 13.1 mg/mg 10-20 [facility] Work Phone: Laboratory - Hematology and Cell countson 01-26-2022 Erythrocyte distribution width (RBC) [Entitic vol] 37.9 fL 35.1-43.9 [facility] Work Phone: [phone] Erythrocyte distribution width (RBC) [Ratio] 13.8 % 11.6-14.6 [facility] Work Phone: [phone] Immature granulocytes/100 WBC (Bld) 0.700 % 0.0-0.9 [facility] Work Phone: [phone] Comment on above: IG% - Immature Granu locytes (promyelocytes, myelocytes and metamyelocytes) > 1% indicates that a LEFT SHIFT is Present. MCH (RBC) [Entitic mass] 25.9 pg 27.0-32.0 [facility] Work Phone: [phone] Nucleated RBC/100 WBC (Bld) [Ratio] 0 % 0-5 [facility] Work Phone: [phone] MCHC Auto (RBC) [Mass/Vol]on 01-26-2022 MCHC (RBC) [Mass/Vol] 33.2 g/dL 32-36 [facility] Work Phone: [phone] Panel Informationon 01-26 Estimated Creatinine Clearance Calc 84.46 ml/min [facility] Work Phone: [phone] Estimated GFR (MDRD) Amer 92 mL/min >60 [facility] Work Phone: [phone] Comment on above: GFR Calc Estimated GFR (MDRD) Non-Af Amer 76 mL/min >60 [facility] Work Phone: [phone] Comment on above: Non- GFR Calc Platelets bldon 01-26-2022 Platelets (Bld) [#/Vol] 474 10*3/uL 150-450 [facility] Work Phone: [phone] Serum or plasma albumin hussein urement (mass/volume)on 01-26-2022 Albumin [Mass/Vol] 3.2 g/dL 3.2-5.0 [facility] Work Phone: [phone] Serum or plasma albumin/glob ulin mass ratioon 01-26-2022 Albumin/Globulin [Mass ratio] 0.6 {ratio} 0.9-2.4 [facility] Work Phone: [phone] Serum or plasma calcium hussein urement (mass/volume)on 01-26-2022 Calcium [Mass/Vol] 9.3 mg/dL 8.5-10.1 [facility] Work Phone: Serum or plasma creatinine m easurement (mass/volume)on 01-26-2022 Creatinine [Mass/Vol] 0.92 mg/dL 0.55-1.02 [facility] Work Phone: Comment on above: The validity of the calculated GFR & GFRAA in patients over 70 years has not been determined. Clinical correlation is essential. Serum or plasma urea nitroge n measurement (mass/volume)on 01-26-2022 Urea nitrogen [Mass/Vol] 12 mg/dL 7-18 [facility] Work Phone: Thin prep Papanicolaou smear with manual screeningon 01-26-2022 Thin prep Papanicolaou smear with manual screening 7 U/L 15-37 [facility] Work Phone: Thin prep Papanicolaou smear with manual screening 9 5-15 [facility] Work Phone: Absolute lymphocyte counton 01-23-2022 Lymphocytes Auto (Unsp spec) [#/Vol] 3.74 10*3/uL 0.83-4.51 [facility] Work Phone: Basophil percentageon 2021 Basophils/100 WBC (Bld) 0.4 % 0-1 [facility] Work Phone: Chloride [Moles/Vol] 97 mmol/L 98-107 [facility] Work Phone: Eosinophils/100 WBC (Bld) 0.4 % 0-5 [facility] Work Phone: [phone] Glucose [Mass/Vol] 362 mg/dL 74-106 [facility] Work Phone: Comment on above: Glucose result great er than or equal to 200 mg/dLsuggests DIABETES MELLITUS per A.D.A. criteria. Neutrophils (Bld) [#/Vol] 5.3 10*3/uL 2.0-7.7 [facility] Work Phone: Neutrophils/100 WBC (Bld) 53.8 % 47-70 [facility] Work Phone: Potassium [Moles/Vol] 4.0 mmol/L 3.5-5.1 [place] [facility] Work Phone: Sodium [Moles/Vol] 131 mmol/L 136-145 [facility] Work Phone: WBC (Bld) [#/Vol] 9.8 10*3/uL 4.4-11.0 [facility] Work Phone: Blood erythrocytes count (nu mber/volume)on 01-23-2022 RBC (Bld) [#/Vol] 5.18 10*6[facility]uL [facility] hemoglobin measurement (mass/volume)on 01-23-2022 Hemoglobin (Bld) [Mass/Vol] 13.4 g/dL 12.0-15.0 [facility] Work Phone: [phone] Blood lymphocytes/100 leukoc yteson 01-23-2022 Lymphocytes/100 WBC (Bld) 38.3 % 19-41 [facility] Work Phone: [phone] Blood monocytes/100 leukocyt eson 01-23-2022 Monocytes/100 WBC (Bld) 6.3 % 0-10 [facility] Work Phone: [phone] Blood platelet mean volumeon 01-23-2022 Platelet mean volume (Bld) [Entitic vol] 9.2 fL 6.2-12.0 [facility] Work Phone: [phone] Determination of erythrocyte mean corpuscular volume (MCV)on 01-23-2022 MCV (RBC) [Entitic vol] 78.2 fL 81-99 [facility] Work Phone: Hematocrit Auto (Bld) [Volum e fraction]on 01-23-2022 Hematocrit (Bld) [Volume fraction] 40.5 % 37-47 [facility] Work Phone: Laboratory - Chemistry and C hemistry - challengeon 01-23-2022 CO2 [Moles/Vol] 24.0 mmol/L 21.0-32.0 [facility] Work Phone: Urea nitrogen/Creatinine [Mass ratio] 17.3 mg/mg 10-20 [facility] Work Phone: [phone] Laboratory - Hematology and Cell countson 01-23-2022 Erythrocyte distribution width (RBC) [Entitic vol] 38.2 fL 35.1-43.9 [facility] Work Phone: [phone] Erythrocyte distribution width (RBC) [Ratio] 13.5 % 11.6-14.6 [facility] Work Phone: [phone] Immature granulocytes/100 WBC (Bld) 0.800 % 0.0-0.9 [facility] Work Phone: [phone] Comment on above: IG% - Immature Granu locytes (promyelocytes, myelocytes and metamyelocytes) > 1% indicates that a LEFT SHIFT is Present. MCH (RBC) [Entitic mass] 25.9 pg 27.0-32.0 [facility] Work Phone: [phone] Nucleated RBC/100 WBC (Bld) [Ratio] 0 % 0-5 [facility] Work Phone: [phone] MCHC Auto (RBC) [Mass/Vol]on 01-23-2022 MCHC (RBC) [Mass/Vol] 33.1 g/dL 32-36 [facility] Work Phone: [phone] Panel Informationon 01-23 Estimated Creatinine Clearance Calc 79.29 ml/min [facility] Work Phone: [phone] Estimated GFR (MDRD) Amer 85 mL/min >60 [facility] Work Phone: [phone] Comment on above: GFR Calc Estimated GFR (MDRD) Non-Af Amer 70 mL/min >60 [facility] Work Phone: [phone] Comment on above: Non- GFR Calc Platelets bldon 01-23-2022 Platelets (Bld) [#/Vol] 470 10*3/uL 150-450 [facility] Work Phone: [phone] Serum or plasma calcium hussein urement (mass/volume)on 01-23-2022 Calcium [Mass/Vol] 9.6 mg/dL 8.5-10.1 [facility] Work Phone: Serum or plasma creatinine m easurement (mass/volume)on 01-23-2022 Creatinine [Mass/Vol] 0.98 mg/dL 0.55-1.02 [facility] Work Phone: Comment on above: The validity of the calculated GFR & GFRAA in patients over 70 years has not been determined. Clinical correlation is essential. Serum or plasma urea nitroge n measurement (mass/volume)on 01-23-2022 Urea nitrogen [Mass/Vol] 17 mg/dL 7-18 [facility] Work Phone: Thin prep Papanicolaou smear with manual screeningon 01-23-2022 Thin prep Papanicolaou smear with manual screening 10 -15 [facility] Work Phone: Glucose Glucometer (BldC) [M ass/Vol]on 01-22-2022 Glucose [Mass/Vol] 320 mg/dL 74-106 [facility] Work Phone: Comment on above: MANAGEMENT OF PATIEN T CARE PER NURSING PROTOCOL Glucose Glucometer (BldC) [M ass/Vol]on 01-16-2022 Glucose [Mass/Vol] 440 mg/dL 74-106 [facility] Work Phone: Comment on above: MANAGEMENT OF PATIEN T CARE PER NURSING PROTOCOL Absolute lymphocyte counton 11-16-2021 Lymphocytes Auto (Unsp spec) [#/Vol] 2.57 10*3/uL 0.83-4.51 [facility] Work Phone: Basophil percentageon 2021 Basophils/100 WBC (Bld) 0.4 % 0-1 [facility] Work Phone: [phone] Bilirubin [Mass/Vol] 0.50 mg/dL 0.20-1.00 [facility] Work Phone: Comment on above: For patients on eltr ombopag therapy, use of Dimension [place] TBIL is not recommended. Chloride [Moles/Vol] 99 mmol/L 98-107 [facility] Work Phone: Eosinophils/100 WBC (Bld) 0.6 % 0-5 [facility] Work Phone: Glucose [Mass/Vol] 331 mg/dL 74-106 [facility] Work Phone: Comment on above: Glucose result great er than or equal to 200 mg/dLsuggests DIABETES MELLITUS per A.D.A. criteria. Neutrophils (Bld) [#/Vol] 7.4 10*3/uL 2.0-7.7 [facility] Work Phone: Neutrophils/100 WBC (Bld) 68.0 % 47-70 [facility] Work Phone: Potassium [Moles/Vol] 4.1 mmol/L 3.5-5.1 [facility] Work Phone: Protein [Mass/Vol] 8.7 g/dL 6.4-8.2 [facility] Work Phone: Sodium [Moles/Vol] 133 mmol/L 136-145 [facility] Work Phone: WBC (Bld) [#/Vol] 10.9 10*3/uL 4.4-11.0 [facility] Work Phone: Blood erythrocytes count (nu mber/volume)on 11-16-2021 RBC (Bld) [#/Vol] 4.48 10*6/uL 4.2-5.4 [facility] Work Phone: Blood hemoglobin measurement (mass/volume)on 11-16-2021 Hemoglobin (Bld) [Mass/Vol] 11.9 g/dL 12.0-15.0 [facility] Work Phone: Blood lymphocytes/100 leukoc yteson 11-16-2021 Lymphocytes/100 WBC (Bld) 23.5 % 19-41 [facility] Work Phone: Blood monocytes/100 leukocyt eson 11-16-2021 Monocytes/100 WBC (Bld) 6.7 % 0-10 [facility] Work Phone: Blood platelet mean volumeon 11-16-2021 Platelet mean volume (Bld) [Entitic vol] 9.2 fL 6.2-12.0 [facility] Work Phone: [phone] Determination of erythrocyte mean corpuscular volume (MCV)on 11-16-2021 MCV (RBC) [Entitic vol] 81.9 fL 81-99 [facility] Work Phone: [phone] Hematocrit Auto (Bld) [Volum e fraction]on 11-16-2021 Hematocrit (Bld) [Volume fraction] 36.7 % 37-47 [facility] Work Phone: [phone] Laboratory - Chemistry and C hemistry - challengeon 11-16-2021 ALP [Catalytic activity/Vol] 130 U/L 45-117 [facility] Work Phone: [phone] ALT [Catalytic activity/Vol] 12 U/L 13-56 [facility] Work Phone: [phone] CO2 [Moles/Vol] 27.0 mmol/L 21.0-32.0 [facility] Work Phone: [phone] Globulin (S) [Mass/Vol] 6.0 g/dL 2.2-4.2 [facility] Work Phone: [phone] Urea nitrogen/Creatinine [Mass ratio] 10.7 mg/mg 10-20 [facility] Work Phone: [phone] Laboratory - Hematology and Cell countson 11-16-2021 Erythrocyte distribution width (RBC) [Entitic vol] 38.0 fL 35.1-43.9 [facility] Work Phone: [phone] Erythrocyte distribution width (RBC) [Ratio] 12.7 % 11.6-14.6 [facility] Work Phone: [phone] Immature granulocytes/100 WBC (Bld) 0.800 % 0.0-0.9 [facility] Work Phone: [phone] Comment on above: IG% - Immature Granu locytes (promyelocytes, myelocytes and metamyelocytes) > 1% indicates that a LEFT SHIFT is Present. MCH (RBC) [Entitic mass] 26.6 pg 27.0-32.0 [facility] Work Phone: Nucleated RBC/100 WBC (Bld) [Ratio] 0 % 0-5 [facility] Work Phone: MCHC Auto (RBC) [Mass/Vol]on 11-16-2021 MCHC (RBC) [Mass/Vol] 32.4 g/dL 32-36 [facility] Work Phone: No Panel Informationon 11-16 Estimated Creatinine Clearance Calc 103.61 ml/min [facility] Work Phone: [phone] Estimated GFR (MDRD) Amer 117 mL/min >60 [facility] Work Phone: Comment on above: GFR Calc Estimated GFR (MDRD) Non-Af Amer 96 mL/min >60 [facility] Work Phone: Comment on above: Non- GFR Calc Platelets bldon 11-16-2021 Platelets (Bld) [#/Vol] 471 10*3/uL 150-450 [facility] Work Phone: Serum or plasma albumin hussein urement (mass/volume)on 11-16-2021 Albumin [Mass/Vol] 2.7 g/dL 3.2-5.0 [facility] Work Phone: Serum or plasma albumin/glob ulin mass ratioon 11-16-2021 Albumin/Globulin [Mass ratio] 0.4 {ratio} 0.9-2.4 [facility] Work Phone: Serum or plasma calcium hussein urement (mass/volume)on 11-16-2021 Calcium [Mass/Vol] 8.9 mg/dL 8.5-10.1 [facility] Work Phone: [phone] Serum or plasma creatinine m easurement (mass/volume)on 11-16-2021 Creatinine [Mass/Vol] 0.75 mg/dL 0.55-1.02 [facility] Work Phone: Comment on above: The validity of the calculated GFR & GFRAA in patients over 70 years has not been determined. Clinical correlation is essential. Serum or plasma urea nitroge n measurement (mass/volume)on 11-16-2021 Urea nitrogen [Mass/Vol] 8 mg/dL 7-18 [facility] Work Phone: Thin prep Papanicolaou smear with manual screeningon 11-16-2021 Thin prep Papanicolaou smear with manual screening 6 U/L 15-37 [facility] Work Phone: [phone] Thin prep Papanicolaou smear with manual screening 7 5-15 [facility] Work Phone: Absolute lymphocyte counton 10-29-2021 Lymphocytes Auto (Unsp spec) [#/Vol] 2.98 10*3/uL 0.83-4.51 [facility] Work Phone: Basophil percentageon 2021 Basophils/100 WBC (Bld) 0.5 % 0-1 [facility] Work Phone: Bilirubin [Mass/Vol] 0.30 mg/dL 0.20-1.00 [facility] Work Phone: Comment on above: For patients on eltr ombopag therapy, use of Dimension [place] TBIL is not recommended. Chloride [Moles/Vol] 99 mmol/L 98-107 [facility] Work Phone: Eosinophils/100 WBC (Bld) 0.2 % 0-5 [facility] Work Phone: [phone] Glucose [Mass/Vol] 387 mg/dL 74-106 [facility] Work Phone: Comment on above: Glucose result great er than or equal to 200 mg/dLsuggests DIABETES MELLITUS per A.D.A. criteria. Neutrophils (Bld) [#/Vol] 9.2 10*3/uL 2.0-7.7 [facility] Work Phone: Neutrophils/100 WBC (Bld) 70.3 % 47-70 [facility] Work Phone: Potassium [Moles/Vol] 4.4 mmol/L 3.5-5.1 [facility] Work Phone: Protein [Mass/Vol] 9.0 g/dL 6.4-8.2 [facility]: [phone] Sodium [Moles/Vol] 130 mmol/L 136-145 [facility]: [phone] WBC (Bld) [#/Vol] 13.0 10*3/uL 4.4-11.0 [facility]: Blood erythrocytes count (nu mber/volume)on 10-29-2021 RBC (Bld) [#/Vol] 4.95 10*6/uL 4.2-5.4 [facility] Work Phone: Blood hemoglobin measurement (mass/volume)on 10-29-2021 Hemoglobin (Bld) [Mass/Vol] 13.3 g/dL 12.0-15.0 [facility] Work Phone: Blood lymphocytes/100 leukoc yteson 10-29-2021 Lymphocytes/100 WBC (Bld) 22.9 % 19-41 [facility] Work Phone: [phone] Blood monocytes/100 leukocyt eson 10-29-2021 Monocytes/100 WBC (Bld) 5.3 % 0-10 [facility] Work Phone: Blood platelet mean volumeon 10-29-2021 Platelet mean volume (Bld) [Entitic vol] 9.0 fL 6.2-12.0 [facility] Work Phone: Determination of erythrocyte mean corpuscular volume (MCV)on 10-29-2021 MCV (RBC) [Entitic vol] 80.0 fL 81-99 [facility] Work Phone: Hematocrit Auto (Bld) [Volum e fraction]on 10-29-2021 Hematocrit (Bld) [Volume fraction] 39.6 % 37-47 [facility] Work Phone: Laboratory - Chemistry and C hemistry - challengeon 10-29-2021 ALP [Catalytic activity/Vol] 156 U/L 45-117 [facility] Work Phone: [phone] ALT [Catalytic activity/Vol] 23 U/L 13-56 [facility] Work Phone: [phone] CO2 [Moles/Vol] 25.0 mmol/L 21.0-32.0 [facility] Work Phone: [phone] Globulin (S) [Mass/Vol] 5.9 g/dL 2.2-4.2 [facility] Work Phone: [phone] Urea nitrogen/Creatinine [Mass ratio] 13.8 mg/mg 10-20 [facility] Work Phone: [phone] Laboratory - Hematology and Cell countson 10-29-2021 Erythrocyte distribution width (RBC) [Entitic vol] 37.2 fL 35.1-43.9 [facility] Work Phone: [phone] Erythrocyte distribution width (RBC) [Ratio] 13.1 % 11.6-14.6 [facility] Work Phone: [phone] Immature granulocytes/100 WBC (Bld) 0.800 % 0.0-0.9 [facility] Work Phone: [phone] Comment on above: IG% - Immature Granu locytes (promyelocytes, myelocytes and metamyelocytes) > 1% indicates that a LEFT SHIFT is Present. MCH (RBC) [Entitic mass] 26.9 pg 27.0-32.0 [facility] Work Phone: [phone] Nucleated RBC/100 WBC (Bld) [Ratio] 0 % 0-5 [facility] Work Phone: [phone] MCHC Auto (RBC) [Mass/Vol]on 10-29-2021 MCHC (RBC) [Mass/Vol] 33.6 g/dL 32-36 [facility] Work Phone: [phone] Panel Informationon 10-29 Estimated Creatinine Clearance Calc 89.32 ml/min [facility] Work Phone: [phone] Estimated GFR (MDRD) Amer 99 mL/min >60 [facility] Work Phone: [phone] Comment on above: GFR Calc Estimated GFR (MDRD) Non-Af Amer 82 mL/min >60 [facility] Work Phone: Comment on above: Non- GFR Calc Platelets bldon 10-29-2021 Platelets (Bld) [#/Vol] 460 10*3/uL 150-450 [facility] Work Phone: Serum or plasma albumin hussein urement (mass/volume)on 10-29-2021 Albumin [Mass/Vol] 3.1 g/dL 3.2-5.0 [facility] Work Phone: Serum or plasma albumin/glob ulin mass ratioon 10-29-2021 Albumin/Globulin [Mass ratio] 0.5 {ratio} 0.9-2.4 [facility] Work Phone: Serum or plasma calcium hussein urement (mass/volume)on 10-29-2021 Calcium [Mass/Vol] 9.0 mg/dL 8.5-10.1 [facility] Work Phone: Serum or plasma choriogonado tropin detectionon 10-29-2021 HCG ( test) Ql < 1 mIU/mL <4 [facility] Work Phone: Comment on above: hCG levels with Gest ational AgeGestational Age hCG mIU/mL (IU/L)0.2 - 1 week 5 - 501-2 weeks 50 - 5002-3 weeks 100 - 21193-2 weeks 500 - 687902-1 weeks 1000 - 295866-5 weeks 51519 - 100,0006-8 weeks 02994 - 200,0002-3 months 99977 - 100,000 Serum or plasma creatinine m easurement (mass/volume)on 10-29-2021 Creatinine [Mass/Vol] 0.87 mg/dL 0.55-1.02 [facility] Work Phone: Comment on above: The validity of the calculated GFR & GFRAA in patients over 70 years has not been determined. Clinical correlation is essential. Serum or plasma urea nitroge n measurement (mass/volume)on 10-29-2021 Urea nitrogen [Mass/Vol] 12 mg/dL 7-18 [facility] Work Phone: Thin prep Papanicolaou smear with manual screeningon 10-29-2021 Thin prep Papanicolaou smear with manual screening 13 U/L 15-37 [facility] Work Phone: Thin prep Papanicolaou smear with manual screening 6 5-15 [facility] Work Phone: Absolute lymphocyte counton 08-10-2021 Lymphocytes Auto (Unsp spec) [#/Vol] 0.86 10*3/uL 0.83-4.51 [facility] Work Phone: Basophil percentageon 2021 Basophil percentage 5-10 SEEN /hpf [facility] Work Phone: Basophils/100 WBC (Bld) 0.2 % 0-1 [facility] Work Phone: Chloride [Moles/Vol] 100 mmol/L 98-107 [facility] Work Phone: Eosinophils/100 WBC (Bld) 0.3 % 0-5 [facility] Work Phone: Glucose [Mass/Vol] 406 mg/dL 74-106 [facility] Work Phone: Comment on above: Glucose result great er than or equal to 200 mg/dLsuggests DIABETES MELLITUS per A.D.A. criteria. Neutrophils (Bld) [#/Vol] 12.4 10*3/uL 2.0-7.7 [facility] Work Phone: Neutrophils/100 WBC (Bld) 89.0 % 47-70 [facility] Work Phone: Potassium [Moles/Vol] 4.2 mmol/L 3.5-5.1 [facility] Work Phone: Sodium [Moles/Vol] 134 mmol/L 136-145 [facility] Work Phone: WBC (Bld) [#/Vol] 14.0 10*3/uL 4.4-11.0 [facility] Work Phone: Beta hCG serum qualon 2021 Beta HCG ( test) Ql Negative [facility] Work Phone: Bilirubin Test strip Ql (U)o n 08-10-2021 Bilirubin Ql (U) Negative Negative [facility] Work Phone: Blood erythrocytes count (nu mber/volume)on 08-10-2021 RBC (Bld) [#/Vol] 5.34 10*6/uL 4.2-5.4 [facility] Work Phone: Blood hemoglobin measurement (mass/volume)on 08-10-2021 Hemoglobin (Bld) [Mass/Vol] 14.7 g/dL 12.0-15.0 [facility] Work Phone: Blood lymphocytes/100 leukoc yteson 08-10-2021 Lymphocytes/100 WBC (Bld) 6.1 % 19-41 [facility] Work Phone: Blood monocytes/100 leukocyt eson 08-10-2021 Monocytes/100 WBC (Bld) 4.0 % 0-10 [facility] Work Phone: Blood platelet mean volumeon 08-10-2021 Platelet mean volume (Bld) [Entitic vol] 9.6 fL 6.2-12.0 [facility] Work Phone: Determination of erythrocyte mean corpuscular volume (MCV)on 08-10-2021 MCV (RBC) [Entitic vol] 82.4 fL 81-99 [facility] Work Phone: Glucose Glucometer (BldC) [M ass/Vol]on 08-10-2021 Glucose [Mass/Vol] 377 mg/dL 70-110 [facility] Work Phone: Comment on above: MANAGEMENT OF PATIEN T CARE PER NURSING PROTOCOL Hematocrit Auto (Bld) [Volum e fraction]on 08-10-2021 Hematocrit (Bld) [Volume fraction] 44.0 % 37-47 [facility] Work Phone: Ketones Test strip Ql (U)on 08-10-2021 Ketones Ql (U) 150 mg/dl Negative [facility] Work Phone: [phone] Comment on above: CRITICAL VALUE *HCRI TICAL VALUE VERIFIED. CALLED TO Rafa PERAZA RN (ED)08/10/21 178Corey Norman [place].RESULTS READ BACK BY SAME . Laboratory - Chemistry and C hemistry - challengeon 08-10-2021 CO2 [Moles/Vol] 23.0 mmol/L 21.0-32.0 [facility] Work Phone: [phone] Urea nitrogen/Creatinine [Mass ratio] 18.6 mg/mg 10-20 [facility] Work Phone: [phone] Laboratory - Hematology and Cell countson 08-10-2021 Erythrocyte distribution width (RBC) [Entitic vol] 39.0 fL 35.1-43.9 [facility] Work Phone: [phone] Erythrocyte distribution width (RBC) [Ratio] 13.1 % 11.6-14.6 [facility] Work Phone: [phone] Immature granulocytes/100 WBC (Bld) 0.400 % 0.0-0.9 [facility] Work Phone: [phone] Comment on above: IG% - Immature Granu locytes (promyelocytes, myelocytes and metamyelocytes) > 1% indicates that a LEFT SHIFT is Present. MCH (RBC) [Entitic mass] 27.5 pg 27.0-32.0 [facility] Work Phone: [phone] Nucleated RBC/100 WBC (Bld) [Ratio] 0 % 0-5 [facility] Work Phone: [phone] MCHC Auto (RBC) [Mass/Vol]on 08-10-2021 MCHC (RBC) [Mass/Vol] 33.4 g/dL 32-36 [facility] Work Phone: [phone] Mucus LM Ql (Urine sed)on Mucus Ql (Urine sed) 0 SEEN /hpf [facility] Work Phone: [phone] Nitrite Test strip Ql (U)on 08-10-2021 Nitrite Ql (U) Negative Negative [facility] Work Phone: No Panel Informationon 08-10 Estimated Creatinine Clearance Calc 90.36 ml/min [facility] Work Phone: [phone] Estimated GFR (MDRD) Amer 100 mL/min >60 [facility] Work Phone: [phone] Comment on above: GFR Calc Estimated GFR (MDRD) Non-Af Amer 83 mL/min >60 [facility] Work Phone: [phone] Comment on above: Non- GFR Calc Platelets bldon 08-10-2021 Platelets (Bld) [#/Vol] 343 10*3/uL 150-450 [facility] Work Phone: Protein Test strip Ql (U)on 08-10-2021 Protein Ql (U) 30 mg/dl Negative [facility] Work Phone: [phone] Serum or plasma calcium hussein urement (mass/volume)on 08-10-2021 Calcium [Mass/Vol] 8.8 mg/dL 8.5-10.1 [facility] Work Phone: [phone] Serum or plasma creatinine m easurement (mass/volume)on 08-10-2021 Creatinine [Mass/Vol] 0.86 mg/dL 0.55-1.02 [facility] Work Phone: Comment on above: The validity of the calculated GFR & GFRAA in patients over 70 years has not been determined. Clinical correlation is essential. Serum or plasma urea nitroge n measurement (mass/volume)on 08-10-2021 Urea nitrogen [Mass/Vol] 16 mg/dL 7-18 [facility] Work Phone: [phone] Squamous epithelial cells de tection in urine sediment by light microscopyon 08-10-2021 Epithelial cells.squamous LM Ql (Urine sed) 0-5 SEEN /hpf [facility] Work Phone: [phone] Thin prep Papanicolaou smear with manual screeningon 08-10-2021 Thin prep Papanicolaou smear with manual screening 11 5-15 [facility] Work Phone: [phone] Urine blood detectionon 07-14 RBC Ql (U) 250 /ul Negative [facility] Work Phone: RBC Ql (U) > 100 SEEN /hpf [facility] Work Phone: Urine clarityon 08-10-2021 Clarity (U) Cloudy Clear [facility] Work Phone: Urine color determinationon 08-10-2021 Color (U) Yellow Yellow [facility] Work Phone: Urine glucose detectionon Glucose Ql (U) 1000 mg/dl Normal [facility] Work Phone: Urine leukocyte esterase det ection by dipstickon 08-10-2021 Leukocyte esterase Test strip Ql (U) 25 /ul Negative [facility] Work Phone: Urine pHon 08-10-2021 pH (U) 7.0 [pH] [facility] Work Phone: [phone] Urine sediment bacteria coun t by microscopy (number/high power field)on 08-10-2021 Bacteria LM.HPF (Urine sed) [#/Area] 1 /[HPF] None Seen [facility] Work Phone: Urine specific gravity measu rementon 08-10-2021 Specific gravity (U) [Rel density] 1.005 [facility] Work Phone: Urobilinogen Auto test strip Ql (U)on 08-10-2021 Urobilinogen Ql (U) 1 mg/dl Normal [facility] Work Phone: XR Chest PA and Lateralon IMPRESSION: No acute radiographic abnormality. [place] Worker Helper: OLGA Transcribe Date/Time: May 15 2021 10:07A Dictated by : ELISEO LYON MD This examination was interpreted and the report reviewed and electronically signed by: ELISEO LYON MD on May 15 2021 10:08AM [facility] DIVISION OF RADIOLOGY * * *Final [...] soft tissues: Unremarkable. DIVISION OF RADIOLOGY Provider, Precious Fabienne [facility] - 05/15/2021 * * *Final Report* [...] Unremarkable. IMPRESSION IMPRESSION: No acute radiographic abnormality. [facility] Worker Helper: PSCB Transcribe Date/Time: May 15 2021 10:07A Dictated by : ELISEO LYON MD This examination was interpreted and the report reviewed and electronically signed by: ELISEO LYON MD on May 15 2021 10:08AM EST [facility] Radiology Study observation (narrative) [facility] Chest PA and LateralOrder ed By: [facility] Provider on 05-15-2021 [facility] Anaerobic culture Bacteria identified Anaer cx Nom (Unsp spec) No anaerobic bacteria isolated. [facility] Work Phone: Bacteria identified Anaer cx Nom (Unsp spec) Anaerobic microbial culture No anaerobic bacteria isolated. [facility] Work Phone: Bacteria identified Cx Nom ( Wound) Wound Culture Meth. resistant Stap h. aureus [facility] Work Phone: [phone] Wound Culture Streptococcus agalactiae (B) [facility] Work Phone: COVID-19 virus antigen assay SARS-CoV-2 (COVID-19) Ag IA.rapid Ql (Resp) [facility] Work Phone: Culture, urine Bacteria identified Cx Nom (U) Culture exhibits no growth. [facility] Work Phone: Gram stain for investigation of transfusion reaction Microscopic observation Gram stain Nom (Unsp spec) [facility] Work Phone: Laboratory - Microbiology an d Antimicrobial susceptibility Bacteria identified Cx Nom (Bld) No growth in 5 days. [facility] Work Phone: Routine wound culture Bacteria identified Cx Nom (Wound) No growth aerobically. [facility] Work Phone: Vital Signs Date Time Vital Sign Value Performing Clinician Facility 01-18-2025 05:57-0400 Body height 167.6 cm Rickey Dumont MD Work Phone: [facility] 01-18-2025 05:57-0400 Body mass index (BMI) [Ratio] 37.12 kg/m2 Rickey Dumont MD Work Phone: [facility] 01-18-2025 05:57-0400 Body temperature 97.81 [degF] Rickey Dumont MD Work Phone: [facility] 01-18-2025 05:57-0400 Body weight 104.33 kg Rickey Dumont MD Work Phone: [facility] 01-18-2025 05:57-0400 Diastolic blood pressure 93 mm[Hg] Rickey Dumont MD Work Phone: [facility] 01-18-2025 05:57-0400 Heart rate 81 /min Rickey Dumont MD Work Phone: [facility] 01-18-2025 05:57-0400 Respiratory rate 22 /min Rickey Dumont MD Work Phone: [facility] 01-18-2025 05:57-0400 SaO2% (BldA) [Mass fraction] 99 % Rickey Dumont MD Work Phone: [facility] 01-18-2025 05:57-0400 Systolic blood pressure 159 mm[Hg] Rickey Dumont MD Work Phone: [facility] 01-15-2025 18:38-0400 Body temperature 98.29 [degF] Mayra Jerome MD Work Phone: [facility] 01-15-2025 18:38-0400 Diastolic blood pressure 101 mm[Hg] Mayra Jerome MD Work Phone: [facility] 01-15-2025 18:38-0400 Heart rate 83 /min Mayra Jerome MD Work Phone: [facility] 01-15-2025 18:38-0400 Respiratory rate 17 /min Mayra Jerome MD Work Phone: [facility] 01-15-2025 18:38-0400 SaO2% (BldA) [Mass fraction] 99 % Mayra Jerome MD Work Phone: [facility] 01-15-2025 18:38-0400 Systolic blood pressure 178 mm[Hg] Mayra Jerome MD Work Phone: [facility] 01-15-2025 14:18-0400 Body height 167.6 cm Mayra Jerome MD Work Phone: [facility] 01-15-2025 14:18-0400 Body mass index (BMI) [Ratio] 37.14 kg/m2 Mayra Jerome MD Work Phone: [facility] 01-15-2025 14:18-0400 Body weight 104.33 kg Mayra Jerome MD Work Phone: [facility] 01-14-2025 08:28-0400 Diastolic blood pressure 78 mm[Hg] Douglas Khan MD Work Phone: [facility] 01-14-2025 08:28-0400 Heart rate 77 /min Douglas Khan MD Work Phone: [facility] 01-14-2025 08:28-0400 Respiratory rate 16 /min Douglas Khan MD Work Phone: [facility] 01-14-2025 08:28-0400 SaO2% (BldA) [Mass fraction] 94 % Douglas Khan MD Work Phone: [facility] 01-14-2025 08:28-0400 Systolic blood pressure 126 mm[Hg] Douglas Khan MD Work Phone: [facility] 01-14-2025 06:16-0400 Body temperature 97.81 [degF] Douglas Khan MD Work Phone: [facility] 01-14-2025 02:38-0400 Body height 167.6 cm Douglas Khan MD Work Phone: [facility] 01-14-2025 02:38-0400 Body mass index (BMI) [Ratio] 37.12 kg/m2 Douglas Khan MD Work Phone: [facility] 01-14-2025 02:38-0400 Body weight 104.33 kg Douglas Khan MD Work Phone: [facility] 01-12-2025 09:00-0400 Body height 167.6 cm Mayra Jerome MD Work Phone: [facility] 01-12-2025 09:00-0400 Body mass index (BMI) [Ratio] 37.12 kg/m2 Mayra Jerome MD Work Phone: [facility] 01-12-2025 09:00-0400 Body weight 104.33 kg Mayra Jerome MD Work Phone: [facility] 01-12-2025 08:55-0400 Body temperature 98.1 [degF] Mayra Jerome MD Work Phone: [facility] 01-12-2025 08:55-0400 Diastolic blood pressure 110 mm[Hg] Mayra Jerome MD Work Phone: [facility] 01-12-2025 08:55-0400 Heart rate 79 /min Mayra Jerome MD Work Phone: [facility] 01-12-2025 08:55-0400 Respiratory rate 16 /min Mayra Jerome MD Work Phone: [facility] 01-12-2025 08:55-0400 SaO2% (BldA) [Mass fraction] 99 % Mayra Jerome MD Work Phone: [facility] 01-12-2025 08:55-0400 Systolic blood pressure 164 mm[Hg] Mayra Jerome MD Work Phone: [facility] 01-08-2025 15:00-0400 Body temperature 98.3 [degF] Amy Solor[employer] Work Phone: 9(458)515-903859 [place] [address] 01-08-2025 15:00-0400 Diastolic blood pressure 56 mm[Hg] Amy [employer] Work Phone: 7(159)338-588659 [place] [address] 01-08-2025 15:00-0400 Heart rate 78 /min Amy [employer] Work Phone: 0(243)499-108759 [place] [address] 01-08-2025 15:00-0400 Respiratory rate 16 /min Amy [employer] Work Phone: 4(422)667-712359 [place] [address] 01-08-2025 15:00-0400 SaO2% (BldA) [Mass fraction] 100 % Amy [employer] Work Phone: 2(125)678-156959 [place] [address] 01-08-2025 15:00-0400 Systolic blood pressure 128 mm[Hg] Amy [employer] Work Phone: 4(969)450-915059 [place] [address] 01-08-2025 10:03-0400 Body height 167.64 cm Amy [employer] Work Phone: 4(623)303-690059 [place] [address] 01-08-2025 10:03-0400 Body weight 107.6 kg Amy [employer] Work Phone: 3(436)040-497059 [place] [address] 01-08-2025 05:50-0400 Body mass index (BMI) [Ratio] 38.2 kg/m2 Amy [employer] Work Phone: 8(738)617-437259 [place] [address] 01-07-2025 16:30-0400 Diastolic blood pressure 69 mm[Hg] Amy [employer] Work Phone: 5(924)508-203359 [place] [address] 01-07-2025 16:30-0400 Heart rate 81 /min Amykeiko [employer] Work Phone: 6(503)274-637637 [place] [address] 01-07-2025 16:30-0400 Respiratory rate 11 /min Amy [employer] Work Phone: 2(487)111-689337 [place] [address] 01-07-2025 16:30-0400 SaO2% (BldA) [Mass fraction] 99 % Amy [employer] Work Phone: 5(035)898-161959 [place] [address] 01-07-2025 16:30-0400 Systolic blood pressure 122 mm[Hg] Amy [employer] Work Phone: 3(571)960-601037 [place] [address] 01-07-2025 14:30-0400 Body temperature 98 [degF] Amy [employer] Work Phone: 3(671)683-258959 [place] [address] 01-07-2025 12:49-0400 Body height 167.64 cm Amykeiko [employer] Work Phone: 4(734)185-243837 [place] [address] 01-07-2025 12:49-0400 Body mass index (BMI) [Ratio] 37.6 kg/m2 Amykeiko [employer] Work Phone: 5(399)823-979237 [place] [address] 01-07-2025 12:49-0400 Body weight 105.8 kg Amy [employer] Work Phone: 3(526)937-577759 [place] [address] 01-04-2025 10:00-0400 Diastolic blood pressure 81 mm[Hg] Amy [employer] Work Phone: 6(254)920-195137 [place] [address] 01-04-2025 10:00-0400 Heart rate 73 /min Amy [employer] Work Phone: 5(975)579-803159 [place] [address] 01-04-2025 10:00-0400 Respiratory rate 13 /min Amy [employer] Work Phone: 7(247)474-761159 [place] [address] 01-04-2025 10:00-0400 SaO2% (BldA) [Mass fraction] 97 % Amypalma [employer] Work Phone: 1(414)849-321837 [place] [address] 01-04-2025 10:00-0400 Systolic blood pressure 147 mm[Hg] Amykeiko [employer] Work Phone: 8(360)829-490337 [place] [address] 01-04-2025 05:55-0400 Body height 167.64 cm Amykeiko [employer] Work Phone: 1(087)757-988337 [place] [address] 01-04-2025 05:55-0400 Body mass index (BMI) [Ratio] 36.8 kg/m2 Amykeiko [employer] Work Phone: 0(319)043-951837 [place] [address] 01-04-2025 05:55-0400 Body temperature 98.5 [degF] Amykeiko [employer] Work Phone: 6(366)465-939837 [place] [address] 01-04-2025 05:55-0400 Body weight 103.4 kg Amykekio [employer] Work Phone: 7(253)891-828637 [place] [address] 01-02-2025 10:43-0400 Body temperature 97.8 [degF] Amykeiko [employer] Work Phone: 6(545)864-166637 [place] [address] 01-02-2025 10:43-0400 Diastolic blood pressure 89 mm[Hg] Amykeiko [employer] Work Phone: 8(355)919-907337 [place] [address] 01-02-2025 10:43-0400 Heart rate 85 /min Amykeiko [employer] Work Phone: 1(320)704-224737 [place] [address] 01-02-2025 10:43-0400 Respiratory rate 18 /min Amykeiko [employer] Work Phone: 2(274)855-499437 [place] [address] 01-02-2025 10:43-0400 SaO2% (BldA) [Mass fraction] 99 % Amykeiko [employer] Work Phone: 2(668)485-932337 [place] [address] 01-02-2025 10:43-0400 Systolic blood pressure 159 mm[Hg] Amy [employer] Work Phone: 9(738)568-374837 [place] [address] 01-02-2025 06:57-0400 Body height 167.64 cm Amy [employer] Work Phone: 3(119)641-022959 [place] [address] 01-02-2025 06:57-0400 Body mass index (BMI) [Ratio] 38 kg/m2 Amy [employer] Work Phone: 9(990)367-996137 [place] [address] 01-02-2025 06:57-0400 Body weight 107.04 kg Amy [employer] Work Phone: 0(045)575-009937 [place] [address] 01-01-2025 13:20-0400 Diastolic blood pressure 87 mm[Hg] Amy [employer] Work Phone: 5(243)512-696837 [place] [address] 01-01-2025 13:20-0400 Heart rate 100 /min Amy [employer] Work Phone: 6(369)453-851837 [place] [address] 01-01-2025 13:20-0400 Respiratory rate 20 /min Amy [employer] Work Phone: 7(120)373-972937 [place] [address] 01-01-2025 13:20-0400 SaO2% (BldA) [Mass fraction] 98 % Amy [employer] Work Phone: 8(611)136-020537 [place] [address] 01-01-2025 13:20-0400 Systolic blood pressure 103 mm[Hg] Amy [employer] Work Phone: 1(457)566-232237 [place] [address] 01-01-2025 12:00-0400 Body temperature 98.1 [degF] Amy [employer] Work Phone: 9(759)654-355737 [place] [address] 01-01-2025 04:10-0400 Body mass index (BMI) [Ratio] 38.9 kg/m2 Amy [employer] Work Phone: 8(419)932-576637 [place] [address] 01-01-2025 04:10-0400 Body weight 109.8 kg Amy [employer] Work Phone: 3(640)240-885937 [place] [address] 12-31-2024 23:46-0400 Body height 167.64 cm Amy [employer] Work Phone: 2(691)662-521337 [place] [address] 12-31-2024 23:18-0400 Body temperature 98.3 [degF] Amy [employer] Work Phone: 8(549)607-512059 [place] [address] 12-31-2024 23:18-0400 Diastolic blood pressure 103 mm[Hg] Amy [employer] Work Phone: 9(133)834-381837 [place] [address] 12-31-2024 23:18-0400 Heart rate 88 /min Amy [employer] Work Phone: 8(862)141-855037 [place] [address] 12-31-2024 23:18-0400 Respiratory rate 16 /min Amy [employer] Work Phone: 5(558)837-849437 [place] [address] 12-31-2024 23:18-0400 SaO2% (BldA) [Mass fraction] 99 % Amy [employer] Work Phone: 0(386)473-182737 [place] [address] 12-31-2024 23:18-0400 Systolic blood pressure 156 mm[Hg] Amy [employer] Work Phone: 5(785)161-519437 [place] [address] 12-31-2024 18:33-0400 Body height 167.64 cm Amy [employer] Work Phone: 6(625)032-483937 [place] [address] 12-31-2024 18:33-0400 Body mass index (BMI) [Ratio] 38.4 kg/m2 Amy [employer] Work Phone: 1(621)676-904237 [place] [address] 12-31-2024 18:33-0400 Body weight 107.95 kg Amy [employer] Work Phone: 0(125)030-903737 [place] [address] 12-31-2024 08:00-0400 Body temperature 98.2 [degF] Amy [employer] Work Phone: 0(132)532-506537 [place] [address] 12-31-2024 08:00-0400 Diastolic blood pressure 81 mm[Hg] Amy [employer] Work Phone: 4(576)901-274537 [place] [address] 12-31-2024 08:00-0400 Heart rate 73 /min Amy [employer] Work Phone: 7(678)690-161237 [place] [address] 12-31-2024 08:00-0400 Respiratory rate 23 /min Amy [employer] Work Phone: 6(206)282-831637 [place] [address] 12-31-2024 08:00-0400 SaO2% (BldA) [Mass fraction] 98 % Amykeiko [employer] Work Phone: 1(934)171-662837 [place] [address] 12-31-2024 08:00-0400 Systolic blood pressure 123 mm[Hg] Amy [employer] Work Phone: 7(921)883-137637 [place] [address] 12-31-2024 05:29-0400 Body mass index (BMI) [Ratio] 39.2 kg/m2 Amykeiko [employer] Work Phone: 6(930)872-228337 [place] [address] 12-31-2024 05:29-0400 Body weight 110.1 kg Amykeiko [employer] Work Phone: 9(778)941-229037 [place] [address] 12-30-2024 13:37-0400 Body height 167.64 cm Amy [employer] Work Phone: 9(226)382-593937 [place] [address] 12-30-2024 12:35-0400 Body temperature 97.4 [degF] Amy [employer] Work Phone: 1(088)252-985237 [place] [address] 12-30-2024 12:35-0400 Diastolic blood pressure 93 mm[Hg] Amy [employer] Work Phone: 0(535)959-028337 [place] [address] 12-30-2024 12:35-0400 Heart rate 94 /min Amy [employer] Work Phone: 3(380)941-604737 [place] [address] 12-30-2024 12:35-0400 Respiratory rate 18 /min Amykeiko [employer] Work Phone: 9(430)225-730237 [place] [address] 12-30-2024 12:35-0400 SaO2% (BldA) [Mass fraction] 96 % Amy [employer] Work Phone: 8(581)313-143937 [place] [address] 12-30-2024 12:35-0400 Systolic blood pressure 126 mm[Hg] Amy [employer] Work Phone: 1(017)080-123737 [place] [address] 12-30-2024 10:25-0400 Body height 167.64 cm Amy [employer] Work Phone: 5(284)791-534437 [place] [address] 12-30-2024 10:25-0400 Body mass index (BMI) [Ratio] 37.7 kg/m2 Amy [employer] Work Phone: 2(478)639-108737 [place] [address] 12-30-2024 10:25-0400 Body weight 106 kg Amy [employer] Work Phone: 6(575)641-662937 [place] [address] 12-13-2024 08:30-0400 Body height 167.64 cm Amy [employer] Work Phone: 0(134)968-461637 [place] [address] 12-13-2024 08:30-0400 Body mass index (BMI) [Ratio] 39.2 kg/m2 Amy [employer] Work Phone: 8(766)211-359837 [place] [address] 12-13-2024 08:30-0400 Body weight 110.22 kg Amy [employer] Work Phone: 0(439)044-957437 [place] [address] 12-13-2024 08:30-0400 Diastolic blood pressure 97 mm[Hg] Amy [employer] Work Phone: 2(223)869-672337 [place] [address] 12-13-2024 08:30-0400 Heart rate 93 /min Amy [employer] Work Phone: 9(699)559-938337 [place] [address] 12-13-2024 08:30-0400 Respiratory rate 19 /min Amy [employer] Work Phone: 8(998)351-165037 [place] [address] 12-13-2024 08:30-0400 SaO2% (BldA) [Mass fraction] 97 % Amy [employer] Work Phone: 5(603)133-808537 [place] [address] 12-13-2024 08:30-0400 Systolic blood pressure 138 mm[Hg] Amy [employer] Work Phone: 1(840)691-937437 [place] [address] 11-28-2024 13:00-0400 Body temperature 98 [degF] Amy [employer] Work Phone: 7(878)859-030337 [place] [address] 11-28-2024 13:00-0400 Diastolic blood pressure 96 mm[Hg] Amy [employer] Work Phone: 5(264)131-047837 [place] [address] 11-28-2024 13:00-0400 Heart rate 60 /min Amy [employer] Work Phone: 4(904)839-906137 [place] [address] 11-28-2024 13:00-0400 SaO2% (BldA) [Mass fraction] 99 % Amy [employer] Work Phone: 0(946)770-428137 [place] [address] 11-28-2024 13:00-0400 Systolic blood pressure 156 mm[Hg] Amy [employer] Work Phone: 2(318)314-378037 [place] [address] 11-28-2024 08:25-0400 Body temperature 98.1 [degF] Amy [employer] Work Phone: 6(419)143-938037 [place] [address] 11-28-2024 08:25-0400 Diastolic blood pressure 84 mm[Hg] Amy [employer] Work Phone: 6(817)269-556137 [place] [address] 11-28-2024 08:25-0400 Heart rate 75 /min Amy [employer] Work Phone: 2(551)479-105837 [place] [address] 11-28-2024 08:25-0400 Respiratory rate 18 /min Amy [employer] Work Phone: 5(703)951-240537 [place] [address] 11-28-2024 08:25-0400 SaO2% (BldA) [Mass fraction] 97 % Amy [employer] Work Phone: 5(256)359-632837 [place] [address] 11-28-2024 08:25-0400 Systolic blood pressure 154 mm[Hg] Amy [employer] Work Phone: 8(983)740-521837 [place] [address] 11-27-2024 13:47-0400 Body height 167.64 cm Amy [employer] Work Phone: 8(627)097-286337 [place] [address] 11-27-2024 13:47-0400 Body weight 110.7 kg Amy [employer] Work Phone: 9(334)775-617637 [place] [address] 11-25-2024 14:54-0400 Body mass index (BMI) [Ratio] 39.4 kg/m2 Amy [employer] Work Phone: 3(834)061-543437 [place] [address] 11-25-2024 14:00-0400 Diastolic blood pressure 91 mm[Hg] Amy [employer] Work Phone: 4(617)939-044037 [place] [address] 11-25-2024 14:00-0400 Heart rate 91 /min Amykeiko [employer] Work Phone: 5(734)399-093437 [place] [address] 11-25-2024 14:00-0400 Respiratory rate 18 /min Amy [employer] Work Phone: 1(275)037-288937 [place] [address] 11-25-2024 14:00-0400 SaO2% (BldA) [Mass fraction] 95 % Amykeiko [employer] Work Phone: 1(129)046-840837 [place] [address] 11-25-2024 14:00-0400 Systolic blood pressure 129 mm[Hg] Amy [employer] Work Phone: 2(812)123-384137 [place] [address] 11-25-2024 11:00-0400 Body temperature 97.6 [degF] Amy [employer] Work Phone: 5(100)800-792737 [place] [address] 11-25-2024 08:48-0400 Body height 167.64 cm Amy [employer] Work Phone: 2(529)796-621137 [place] [address] 11-25-2024 08:48-0400 Body mass index (BMI) [Ratio] 40.9 kg/m2 Amy [employer] Work Phone: 1(464)101-714237 [place] [address] 11-25-2024 08:48-0400 Body weight 115.03 kg Amy [employer] Work Phone: 2(851)726-273506 [address] 07-03-2024 12:26-0500 Body mass index (BMI) [Ratio] 40.02 kg/m2 Vinnielydesirae Aberegg PA Work Phone: [facility] 07-03-2024 12:26-0500 Body temperature 97 [degF] Krislyn Aberegg PA Work Phone: [facility] 07-03-2024 12:26-0500 Body weight 115.9 kg Krislyn Aberegg PA Work Phone: [facility] 07-03-2024 12:26-0500 Diastolic blood pressure 90 mm[Hg] Krislyn Aberegg PA Work Phone: [facility] 07-03-2024 12:26-0500 Heart rate 104 /min Krislyn Aberegg PA Work Phone: [facility] 07-03-2024 12:26-0500 Respiratory rate 16 /min Krislyn Aberegg PA Work Phone: [facility] 07-03-2024 12:26-0500 SaO2% (BldA) [Mass fraction] 100 % Krislyn Aberegg PA Work Phone: [facility] 07-03-2024 12:26-0500 Systolic blood pressure 122 mm[Hg] Krislyn Aberegg PA Work Phone: [facility] 06-26-2024 10:36-0500 Body mass index (BMI) [Ratio] 39.95 kg/m2 Frantz Clutter PA-C Work Phone: [facility] 06-26-2024 10:36-0500 Body temperature 97.39 [degF] Frantz Clutter PA-C Work Phone: [facility] 06-26-2024 10:36-0500 Body weight 115.7 kg Frantz Clutter PA-C Work Phone: [facility] 06-26-2024 10:36-0500 Diastolic blood pressure 78 mm[Hg] Frantz Clutter PA-C Work Phone: [facility] 06-26-2024 10:36-0500 Heart rate 117 /min Frantz Clutter PA-C Work Phone: [facility] 06-26-2024 10:36-0500 Respiratory rate 18 /min Frantz Clutter PA-C Work Phone: [facility] 06-26-2024 10:36-0500 SaO2% (BldA) [Mass fraction] 97 % Frantz Clutter PA-C Work Phone: [facility] 06-26-2024 10:36-0500 Systolic blood pressure 122 mm[Hg] Frantz Noonanyanelis CODY Work Phone: [facility] 07-23-2023 11:30-0500 Body temperature 96.9 [degF] No Primary Care Physician [facility] 07-23-2023 11:30-0500 Diastolic blood pressure 82 mm[Hg] No Primary Care Physician [facility] 07-23-2023 11:30-0500 Heart rate 80 /min No Primary Care Physician [facility] 07-23-2023 11:30-0500 Respiratory rate 16 /min No Primary Care Physician [facility] 07-23-2023 11:30-0500 SaO2% (BldA) [Mass fraction] 99 % No Primary Care Physician [facility] 07-23-2023 11:30-0500 Systolic blood pressure 117 mm[Hg] No Primary Care Physician [facility] 07-23-2023 11:05-0500 Inhaled oxygen flow rate 4 L/min No Primary Care Physician [facility] 07-23-2023 08:34-0500 Body height 167.64 cm No Primary Care Physician [facility] 07-23-2023 08:34-0500 Body mass index (BMI) [Ratio] 32.5 kg/m2 No Primary Care Physician [facility] 07-23-2023 08:34-0500 Body weight 91.62 kg No Primary Care Physician [facility] 07-12-2023 10:13-0500 Body mass index (BMI) [Ratio] 32.1 kg/m2 No Primary Care Physician [facility] 07-12-2023 10:13-0500 Body temperature 98.2 [degF] No Primary Care Physician [facility] 07-12-2023 10:13-0500 Body weight 90.4 kg No Primary Care Physician [facility] 07-12-2023 10:13-0500 Diastolic blood pressure 90 mm[Hg] No Primary Care Physician [facility] 07-12-2023 10:13-0500 Heart rate 98 /min No Primary Care Physician [facility] 07-12-2023 10:13-0500 Respiratory rate 14 /min No Primary Care Physician [facility] 01-01-2024 10:13-0500 SaO2% (BldA) [Mass fraction] 100 % No Primary Care Physician [facility] 07-12-2023 10:13-0500 Systolic blood pressure 124 mm[Hg] No Primary Care Physician [facility] 07-02-2023 09:17-0500 Diastolic blood pressure 94 mm[Hg] No Primary Care Physician [facility] 07-02-2023 09:17-0500 Systolic blood pressure 142 mm[Hg] No Primary Care Physician [facility] 07-02-2023 09:14-0500 Body height 167.64 cm No Primary Care Physician [facility] 07-02-2023 09:14-0500 Body temperature 96.4 [degF] No Primary Care Physician [facility] 07-02-2023 09:14-0500 Heart rate 100 /min No Primary Care Physician [facility] 07-02-2023 09:14-0500 Respiratory rate 16 /min No Primary Care Physician [facility] 07-02-2023 09:14-0500 SaO2% (BldA) [Mass fraction] 100 % No Primary Care Physician [facility] 07-01-2023 10:07-0500 Body temperature 97 [degF] Andres Galaviz S[employer] WORKER.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 Work Phone: [facility] 07-01-2023 10:07-0500 Body weight 93.44 kg Andres Galaviz SORT WORKER.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 Work Phone: [facility] 07-01-2023 10:07-0500 Diastolic blood pressure 82 mm[Hg] Andres Galaviz SORT WORKER.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 Work Phone: [facility] 07-01-2023 10:07-0500 Heart rate 91 /min Andres Galaviz SORT WORKER.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 Work Phone: [facility] 07-01-2023 10:07-0500 Respiratory rate 18 /min Andres Galaviz SORT WORKER.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 Work Phone: [facility] 07-01-2023 10:07-0500 SaO2% (BldA) [Mass fraction] 100 % Andres Galaviz SORT WORKER.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 Work Phone: [facility] 07-01-2023 10:07-0500 Systolic blood pressure 117 mm[Hg] Andres Galaviz LAINE Work Phone: [facility] 06-30-2023 13:41-0500 Heart rate 72 /min No Primary Care Physician [facility] 06-30-2023 13:41-0500 Respiratory rate 16 /min No Primary Care Physician [facility] 06-30-2023 13:41-0500 SaO2% (BldA) [Mass fraction] 98 % No Primary Care Physician [facility] 06-30-2023 09:24-0500 Body mass index (BMI) [Ratio] 34 kg/m2 No Primary Care Physician [facility] 06-30-2023 09:24-0500 Body weight 95.7 kg No Primary Care Physician [facility] 06-30-2023 08:22-0500 Body temperature 98 [degF] No Primary Care Physician [facility] 06-30-2023 08:22-0500 Diastolic blood pressure 110 mm[Hg] No Primary Care Physician [facility] 06-30-2023 08:22-0500 Systolic blood pressure 170 mm[Hg] No Primary Care Physician [facility] 06-28-2023 09:17-0500 Body height 167.64 cm No Primary Care Physician [facility] 06-28-2023 09:17-0500 Body mass index (BMI) [Ratio] 33.6 kg/m2 No Primary Care Physician [facility] 06-28-2023 09:17-0500 Body temperature 98.2 [degF] No Primary Care Physician [facility] 06-28-2023 09:17-0500 Body weight 94.5 kg No Primary Care Physician [facility] 06-28-2023 09:17-0500 Diastolic blood pressure 105 mm[Hg] No Primary Care Physician [facility] 06-28-2023 09:17-0500 Heart rate 82 /min No Primary Care Physician [facility] 06-28-2023 09:17-0500 Respiratory rate 14 /min No Primary Care Physician [facility] 06-28-2023 09:17-0500 SaO2% (BldA) [Mass fraction] 99 % No Primary Care Physician [facility] 06-28-2023 09:17-0500 Systolic blood pressure 154 mm[Hg] No Primary Care Physician [facility] 06-27-2023 05:50-0500 Body height 167.64 cm No Primary Care Physician [facility] 06-27-2023 05:50-0500 Body mass index (BMI) [Ratio] 34 kg/m2 No Primary Care Physician [facility] 06-27-2023 05:50-0500 Body temperature 98.6 [degF] No Primary Care Physician [facility] 06-27-2023 05:50-0500 Body weight 95.7 kg No Primary Care Physician [facility] 06-27-2023 05:50-0500 Diastolic blood pressure 98 mm[Hg] No Primary Care Physician [facility] 06-27-2023 05:50-0500 Heart rate 85 /min No Primary Care Physician [facility] 06-27-2023 05:50-0500 Respiratory rate 16 /min No Primary Care Physician [facility] 06-27-2023 05:50-0500 SaO2% (BldA) [Mass fraction] 99 % No Primary Care Physician [facility] 06-27-2023 05:50-0500 Systolic blood pressure 163 mm[Hg] No Primary Care Physician [facility] 06-26-2023 17:04-0500 Heart rate 74 /min No Primary Care Physician [facility] 06-26-2023 17:04-0500 Respiratory rate 18 /min No Primary Care Physician [facility] 06-26-2023 17:04-0500 SaO2% (BldA) [Mass fraction] 97 % No Primary Care Physician [facility] 06-26-2023 11:30-0500 Body height 167.64 cm No Primary Care Physician [facility] 06-26-2023 11:30-0500 Body mass index (BMI) [Ratio] 34.1 kg/m2 No Primary Care Physician [facility] 06-26-2023 11:30-0500 Body temperature 97 [degF] No Primary Care Physician [facility] 06-26-2023 11:30-0500 Body weight 95.98 kg No Primary Care Physician [facility] 06-26-2023 11:30-0500 Diastolic blood pressure 120 mm[Hg] No Primary Care Physician [facility] 06-26-2023 11:30-0500 Systolic blood pressure 135 mm[Hg] No Primary Care Physician [facility] 06-25-2023 12:33-0500 Diastolic blood pressure 69 mm[Hg] No Primary Care Physician [facility] 06-25-2023 12:33-0500 Heart rate 82 /min No Primary Care Physician [facility] 06-25-2023 12:33-0500 Respiratory rate 16 /min No Primary Care Physician [facility] 06-25-2023 12:33-0500 SaO2% (BldA) [Mass fraction] 100 % No Primary Care Physician [facility] 06-25-2023 12:33-0500 Systolic blood pressure 124 mm[Hg] No Primary Care Physician [facility] 06-25-2023 09:27-0500 Body height 168 cm No Primary Care Physician [facility] 06-25-2023 09:27-0500 Body mass index (BMI) [Ratio] 32.1 kg/m2 No Primary Care Physician [facility] 06-25-2023 09:27-0500 Body temperature 96.5 [degF] No Primary Care Physician [facility] 06-25-2023 09:27-0500 Body weight 90.71 kg No Primary Care Physician [facility] 05-09-2023 14:02-0400 Body temperature 98.4 [degF] No Primary Care Physician [facility] 05-09-2023 14:02-0400 Diastolic blood pressure 102 mm[Hg] No Primary Care Physician [facility] 05-09-2023 14:02-0400 Heart rate 74 /min No Primary Care Physician [facility] 05-09-2023 14:02-0400 Respiratory rate 18 /min No Primary Care Physician [facility] 05-09-2023 14:02-0400 SaO2% (BldA) [Mass fraction] 100 % No Primary Care Physician [facility] 05-09-2023 14:02-0400 Systolic blood pressure 177 mm[Hg] No Primary Care Physician [facility] 05-09-2023 13:32-0400 Body temperature 98.4 [degF] [facility] Work Phone: [facility] 05-09-2023 13:32-0400 Diastolic blood pressure 121 mm[Hg] [facility] Work Phone: 4(698)649-578837 [place] [address] 05-09-2023 13:32-0400 Heart rate 74 /min [facility] Work Phone: 9(515)624-804137 [place] [address] 05-09-2023 13:32-0400 Respiratory rate 18 /min [facility] Work Phone: 1(488)210-986837 [place] [address] 05-09-2023 13:32-0400 SaO2% (BldA) [Mass fraction] 100 % [facility] Work Phone: 0(576)656-005937 [place] [address] 05-09-2023 13:32-0400 Systolic blood pressure 177 mm[Hg] [facility] Work Phone: 1(314)678-158037 [place] [address] 05-07-2023 11:35-0400 Body height 167.64 cm [facility] Work Phone: 5(356)009-640337 [place] [address] 05-07-2023 11:35-0400 Body mass index (BMI) [Ratio] 33.5 kg/m2 [facility] Work Phone: 4(995)968-017837 [place] [address] 05-07-2023 11:35-0400 Body weight 94.2 kg [facility] Work Phone: 7(565)810-436137 [place] [address] 05-04-2023 15:23-0400 Body height 167.64 cm [facility] Work Phone: 9(252)160-746737 [place] [address] 05-04-2023 15:23-0400 Body mass index (BMI) [Ratio] 33.5 kg/m2 [facility] Work Phone: 2(647)219-469337 [place] [address] 05-04-2023 15:23-0400 Body temperature 97.4 [degF] [facility] Work Phone: 7(820)667-673837 [place] [address] 05-04-2023 15:23-0400 Body weight 94.2 kg [facility] Work Phone: 0(791)933-421537 [place] [address] 05-04-2023 15:23-0400 Diastolic blood pressure 69 mm[Hg] [facility] Work Phone: 1(042)877-831637 [place] [address] 05-04-2023 15:23-0400 Heart rate 84 /min [facility] Work Phone: 4(580)787-126837 [place] [address] 05-04-2023 15:23-0400 Inhaled oxygen flow rate 96 L/min [facility] Work Phone: 3(940)490-985537 [place] [address] 05-04-2023 15:23-0400 Respiratory rate 16 /min [facility] Work Phone: 4(496)551-566537 [place] [address] 05-04-2023 15:23-0400 Systolic blood pressure 134 mm[Hg] [facility] Work Phone: 8(404)322-687437 [place] [address] 05-04-2023 14:51-0400 SaO2% (BldA) [Mass fraction] 97 % [facility] Work Phone: 1(151)919-727537 [place] [address] 04-15-2023 13:43-0400 Diastolic blood pressure 58 mm[Hg] [facility] Work Phone: 4(794)274-029537 [place] [address] 04-15-2023 13:43-0400 Heart rate 72 /min [facility] Work Phone: 7(133)640-667137 [place] [address] 04-15-2023 13:43-0400 Respiratory rate 16 /min [facility] Work Phone: 4(973)395-460037 [place] [address] 04-15-2023 13:43-0400 SaO2% (BldA) [Mass fraction] 99 % [facility] Work Phone: 8(587)035-635137 [place] [address] 04-15-2023 13:43-0400 Systolic blood pressure 122 mm[Hg] [facility] Work Phone: 4(134)851-099637 [place] [address] 04-15-2023 11:17-0400 Body mass index (BMI) [Ratio] 29.3 kg/m2 [facility] Work Phone: 5(059)319-082137 [place] [address] 04-15-2023 11:17-0400 Body temperature 97 [degF] [facility] Work Phone: 1(093)605-118437 [place] [address] 04-15-2023 11:17-0400 Body weight 82.4 kg [facility] Work Phone: 1(962)954-613837 [place] [address] 04-14-2023 11:51-0400 Body mass index (BMI) [Ratio] 32.3 kg/m2 [facility] Work Phone: 4(014)782-261937 [place] [address] 04-14-2023 11:51-0400 Body temperature 97.2 [degF] [facility] Work Phone: 2(183)215-786137 [place] [address] 04-14-2023 11:51-0400 Body weight 90.71 kg [facility] Work Phone: 4(539)505-939337 [place] [address] 04-14-2023 11:51-0400 Diastolic blood pressure 92 mm[Hg] [facility] Work Phone: 8(833)284-987737 [place] [address] 04-14-2023 11:51-0400 Heart rate 102 /min [facility] Work Phone: 0(705)897-424437 [place] [address] 04-14-2023 11:51-0400 Respiratory rate 24 /min [facility] Work Phone: 7(490)133-614037 [place] [address] 04-14-2023 11:51-0400 SaO2% (BldA) [Mass fraction] 100 % [facility] Work Phone: 9(759)743-368137 [place] [address] 04-14-2023 11:51-0400 Systolic blood pressure 131 mm[Hg] [facility] Work Phone: 7(618)329-522637 [place] [address] 04-13-2023 10:36-0400 Diastolic blood pressure 78 mm[Hg] [facility] Work Phone: 3(652)377-927937 [place] [address] 04-13-2023 10:36-0400 Heart rate 64 /min [facility] Work Phone: 5(751)590-172937 [place] [address] 04-13-2023 10:36-0400 Respiratory rate 14 /min [facility] Work Phone: 9(863)791-161337 [place] [address] 04-13-2023 10:36-0400 SaO2% (BldA) [Mass fraction] 98 % [facility] Work Phone: 6(215)200-109337 [place] [address] 04-13-2023 10:36-0400 Systolic blood pressure 108 mm[Hg] [facility] Work Phone: 3(368)107-114037 [place] [address] 04-13-2023 08:59-0400 Body mass index (BMI) [Ratio] 32.3 kg/m2 [facility] Work Phone: 4(749)167-412837 [place] [address] 04-13-2023 08:59-0400 Body temperature 95.9 [degF] [facility] Work Phone: 3(188)193-628537 [place] [address] 04-13-2023 08:59-0400 Body weight 90.71 kg [facility] Work Phone: 1(801)541-348837 [place] [address] 03-06-2023 08:15-0400 Body height 167.64 cm [facility] Work Phone: 7(348)808-838337 [place] [address] 03-06-2023 08:15-0400 Body mass index (BMI) [Ratio] 32.5 kg/m2 [facility] Work Phone: 3(206)236-804937 [place] [address] 03-06-2023 08:15-0400 Body temperature 97 [degF] [facility] Work Phone: 2(827)022-559137 [place] [address] 03-06-2023 08:15-0400 Body weight 91.3 kg [facility] Work Phone: 4(447)017-148137 [place] [address] 03-06-2023 08:15-0400 Diastolic blood pressure 113 mm[Hg] [facility] Work Phone: 9(452)309-995037 [place] [address] 03-06-2023 08:15-0400 Heart rate 100 /min [facility] Work Phone: 2(546)251-632337 [place] [address] 03-06-2023 08:15-0400 Respiratory rate 14 /min [facility] Work Phone: 8(999)450-206737 [place] [address] 03-06-2023 08:15-0400 SaO2% (BldA) [Mass fraction] 100 % [facility] Work Phone: 0(456)780-536037 [place] [address] 03-06-2023 08:15-0400 Systolic blood pressure 153 mm[Hg] [facility] Work Phone: 2(341)994-572537 [place] [address] 03-01-2023 10:40-0400 Body height 170.2 cm Dewayne Doran MD Work Phone: [facility] 03-01-2023 10:40-0400 Body temperature 98.2 [degF] Dewayne Doran MD Work Phone: [facility] 03-01-2023 10:40-0400 Body weight 90.1 kg Dewayne Doran MD Work Phone: [facility] 03-01-2023 10:40-0400 Diastolic blood pressure 87 mm[Hg] Dewayne Doran MD Work Phone: [facility] 03-01-2023 10:40-0400 Heart rate 109 /min Dewayne Doran MD Work Phone: [facility] 03-01-2023 10:40-0400 SaO2% (BldA) [Mass fraction] 97 % Dewayne Doran MD Work Phone: [facility] 03-01-2023 10:40-0400 Systolic blood pressure 119 mm[Hg] Dewayne Doran MD Work Phone: [facility] 02-26-2023 03:54-0400 Diastolic blood pressure 63 mm[Hg] [facility] Work Phone: 2(008)205-900359 [place] [address] 02-26-2023 03:54-0400 Heart rate 68 /min [facility] Work Phone: 6(589)082-140159 [place] [address] 02-26-2023 03:54-0400 Respiratory rate 15 /min [facility] Work Phone: 4(342)382-709259 [place] [address] 02-26-2023 03:54-0400 SaO2% (BldA) [Mass fraction] 97 % [facility] Work Phone: 6(438)885-790359 [place] [address] 02-26-2023 03:54-0400 Systolic blood pressure 107 mm[Hg] [facility] Work Phone: 9(347)357-937059 [place] [address] 02-25-2023 23:59-0400 Body height 167.64 cm [facility] Work Phone: 1(078)797-527559 [place] [address] 02-25-2023 23:59-0400 Body mass index (BMI) [Ratio] 31.8 kg/m2 [facility] Work Phone: 2(040)375-091659 [place] [address] 02-25-2023 23:59-0400 Body temperature 98 [degF] [facility] Work Phone: 4(314)041-927937 [place] [address] 02-25-2023 23:59-0400 Body weight 89.44 kg [facility] Work Phone: 1(774)307-501037 [place] [address] 02-24-2023 12:55-0400 Diastolic blood pressure 93 mm[Hg] [facility] Work Phone: 2(020)650-606137 [place] [address] 02-24-2023 12:55-0400 Heart rate 85 /min [facility] Work Phone: 5(526)244-058137 [place] [address] 02-24-2023 12:55-0400 Respiratory rate 18 /min [facility] Work Phone: 4(893)936-371137 [place] [address] 02-24-2023 12:55-0400 SaO2% (BldA) [Mass fraction] 96 % [facility] Work Phone: 1(742)010-307837 [place] [address] 02-24-2023 12:55-0400 Systolic blood pressure 124 mm[Hg] [facility] Work Phone: 7(033)305-842937 [place] [address] 02-24-2023 11:32-0400 Body mass index (BMI) [Ratio] 32.4 kg/m2 [facility] Work Phone: 7(458)964-096637 [place] [address] 02-24-2023 11:32-0400 Body temperature 97.8 [degF] [facility] Work Phone: 7(435)824-612437 [place] [address] 02-24-2023 11:32-0400 Body weight 91.22 kg [facility] Work Phone: 4(110)063-984437 [place] [address] 02-23-2023 09:59-0400 Body temperature 97.11 [degF] Pilra Magdaleno APRN.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 Work Phone: [facility] 02-23-2023 09:59-0400 Body weight 91.17 kg Pilar Magdaleno APRN.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 Work Phone: [facility] 02-23-2023 09:59-0400 Diastolic blood pressure 74 mm[Hg] Pilar Magdaleno APRN.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 Work Phone: [facility] 02-23-2023 09:59-0400 Heart rate 88 /min Pilar Magdaleno SORT WORKER.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 Work Phone: [facility] 02-23-2023 09:59-0400 Respiratory rate 16 /min Pilar Rasta SORT WORKER.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 Work Phone: [facility] 02-23-2023 09:59-0400 Systolic blood pressure 118 mm[Hg] Pilar Rasta DARLINGN.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 Work Phone: [facility] 02-11-2023 15:17-0400 Body temperature 97.88 [degF] HELENA SILVERMAN SORT WORKER-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 [facility] 02-11-2023 15:17-0400 Diastolic Blood Pressure Non-Invasive 86 1 HELENA SILVERMAN SORT WORKER-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 [facility] 02-11-2023 15:17-0400 Heart rate 67 /min HELENA SILVERMAN SORT WORKER-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 [facility] 02-11-2023 15:17-0400 Reason For Taking VItal Signs HELENA SILVERMAN SORT WORKER-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 [facility] 02-11-2023 15:17-0400 Systolic Blood Pressure Non-Invasive 137 1 HELENA SILVERMAN SORT WORKER-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 [facility] 02-11-2023 11:58-0400 Body temperature 97.7 [degF] HELENA SILVERMAN SORT WORKER-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 [facility] 02-11-2023 11:58-0400 Diastolic Blood Pressure Non-Invasive 94 1 HELENA SILVERMAN SORT WORKER-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 [facility] 02-11-2023 11:58-0400 Heart rate 68 /min HELENA SILVERMAN SORT WORKER-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 [facility] 02-11-2023 11:58-0400 Reason For Taking VItal Signs HELENA SILVERMAN SORT WORKER-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 [facility] 02-11-2023 11:58-0400 Respiratory rate 18 /min HELENA SILVERMAN SORT WORKER-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 [facility] 02-11-2023 11:58-0400 Systolic Blood Pressure Non-Invasive 138 1 HELENA SILVERMAN SORT WORKER-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 [facility] 02-11-2023 07:52-0400 Body temperature 98.06 [degF] HELENA SILVERMAN SORT WORKER-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 [facility] 02-11-2023 07:52-0400 Diastolic Blood Pressure Non-Invasive 82 1 HELENA SILVERMAN SORT WORKER-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 [facility] 02-11-2023 07:52-0400 Heart rate 75 /min HELENA SILVERMAN SORT WORKER-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 [facility] 02-11-2023 07:52-0400 Reason For Taking VItal Signs HELENA SILVERMAN SORT WORKER-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 [facility] 02-11-2023 07:52-0400 Respiratory rate 18 /min HELENA SILVERMAN SORT WORKER-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 [facility] 02-11-2023 07:52-0400 Systolic Blood Pressure Non-Invasive 127 1 HELENAALETHA SILVERMAN SORT WORKER-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 [facility] 02-11-2023 05:25-0400 Respiratory rate 18 /min HELENA SILVERMAN SORT WORKER-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 [facility] 02-11-2023 01:49-0400 Body height 169.9 cm HELENA SILVERMAN SORT WORKER-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 [facility] 02-11-2023 01:49-0400 Body weight 94.4 kg HELENA HERRERA SORT WORKER-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 [facility] 02-11-2023 01:49-0400 Body weight 32.7 kg/m2 HELENA HERRERA SORT WORKER-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 [facility] 02-10-2023 23:34-0400 Blood Pressure Cuff Size HELENA HERRERA SORT WORKER-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 [facility] 02-10-2023 23:34-0400 Blood Pressure Location HELENA HERRERA SORT WORKER-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 [facility] 02-10-2023 23:34-0400 Blood Pressure Method HELENAALETHA SILVERMAN APRN-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 [facility] 02-10-2023 23:34-0400 Body height 167.6 cm HELENA SILVERMAN SORT WORKER-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 [facility] 02-10-2023 23:34-0400 Body temperature 98.24 [degF] HELENA HERRERA SORT WORKER-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 [facility] 02-10-2023 23:34-0400 Body weight 97.7 kg HELENA HERRERA SORT WORKER-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 [facility] 02-10-2023 23:34-0400 Heart rate 90 /min HELENA SILVERMAN SORT WORKER-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 [facility] 02-08-2023 15:46-0400 Heart rate 97 /min [facility] Work Phone: [facility] 02-08-2023 15:46-0400 Respiratory rate 21 /min [facility] Work Phone: [facility] 02-08-2023 15:46-0400 SaO2% (BldA) [Mass fraction] 96 % [facility] Work Phone: 0(846)505-678537 [place] [address] 02-08-2023 11:06-0400 Body height 167.64 cm [facility] Work Phone: 2(897)867-386037 [place] [address] 02-08-2023 11:06-0400 Body mass index (BMI) [Ratio] 34 kg/m2 [facility] Work Phone: 2(252)591-833837 [place] [address] 02-08-2023 11:06-0400 Body temperature 96 [degF] [facility] Work Phone: 8(598)319-267337 [place] [address] 02-08-2023 11:06-0400 Body weight 95.52 kg [facility] Work Phone: 0(065)075-164337 [place] [address] 02-08-2023 11:06-0400 Diastolic blood pressure 90 mm[Hg] [facility] Work Phone: 3(805)149-668637 [place] [address] 02-08-2023 11:06-0400 Systolic blood pressure 149 mm[Hg] [facility] Work Phone: 8(160)463-884437 [place] [address] 01-25-2023 11:35-0400 Body height 167.64 cm [facility] Work Phone: 8(916)401-814037 [place] [address] 01-25-2023 11:35-0400 Body mass index (BMI) [Ratio] 35.2 kg/m2 [facility] Work Phone: 4(086)764-529237 [place] [address] 01-25-2023 11:35-0400 Body temperature 96 [degF] [facility] Work Phone: 9(128)571-626937 [place] [address] 01-25-2023 11:35-0400 Body weight 98.8 kg [facility] Work Phone: 6(849)302-544537 [place] [address] 01-25-2023 11:35-0400 Diastolic blood pressure 87 mm[Hg] [facility] Work Phone: 8(691)905-571237 [place] [address] 01-25-2023 11:35-0400 Heart rate 86 /min [facility] Work Phone: 9(518)058-024937 [place] [address] 01-25-2023 11:35-0400 Respiratory rate 14 /min [facility] Work Phone: [facility] 01-25-2023 11:35-0400 SaO2% (BldA) [Mass fraction] 100 % [facility] Work Phone: [facility] 01-25-2023 11:35-0400 Systolic blood pressure 123 mm[Hg] [facility] Work Phone: [facility] 01-24-2023 12:38-0400 Diastolic blood pressure 74 mm[Hg] Abdirizak Ramirez MD Work Phone: [facility] 01-24-2023 12:38-0400 Heart rate 70 /min Abdirizak Ramirez MD Work Phone: [facility] 01-24-2023 12:38-0400 SaO2% (BldA) [Mass fraction] 98 % Abdirizak Ramirez MD Work Phone: [facility] 01-24-2023 12:38-0400 Systolic blood pressure 129 mm[Hg] Abdirizak Ramirez MD Work Phone: [facility] 01-24-2023 12:09-0400 Respiratory rate 15 /min Abdirizak Ramirez MD Work Phone: [facility] 01-24-2023 10:28-0400 Body height 167.6 cm Abdirizak Ramirez MD Work Phone: [facility] 01-24-2023 10:28-0400 Body mass index (BMI) [Ratio] 37.12 kg/m2 Abdirizak Ramirez MD Work Phone: [facility] 01-24-2023 10:28-0400 Body temperature 97.3 [degF] Abdirizak Ramirez MD Work Phone: [facility] 01-24-2023 10:28-0400 Body weight 104.33 kg Abdirizak Ramirez MD Work Phone: [facility] 01-15-2023 15:08-0400 Body temperature 97.9 [degF] [facility] Work Phone: 8(823)427-784137 [place] [address] 01-15-2023 15:08-0400 Diastolic blood pressure 102 mm[Hg] [facility] Work Phone: 9(485)587-586337 [place] [address] 01-15-2023 15:08-0400 Heart rate 73 /min [facility] Work Phone: 1(706)025-398337 [place] [address] 01-15-2023 15:08-0400 Respiratory rate 16 /min [facility] Work Phone: 6(527)461-685237 [place] [address] 01-15-2023 15:08-0400 SaO2% (BldA) [Mass fraction] 97 % [facility] Work Phone: 8(186)496-198537 [place] [address] 01-15-2023 15:08-0400 Systolic blood pressure 168 mm[Hg] [facility] Work Phone: 1(494)050-766537 [place] [address] 01-15-2023 12:58-0400 Body height 167.64 cm [facility] Work Phone: 9(364)984-042737 [place] [address] 01-15-2023 12:58-0400 Body weight 104 kg [facility] Work Phone: 1(945)674-098337 [place] [address] 01-14-2023 16:21-0400 Body mass index (BMI) [Ratio] 37 kg/m2 [facility] Work Phone: 2(049)898-957837 [place] [address] 01-13-2023 10:20-0400 Respiratory rate 16 /min [facility] Work Phone: 0(045)134-166137 [place] [address] 01-13-2023 06:21-0400 Body mass index (BMI) [Ratio] 37.6 kg/m2 [facility] Work Phone: 3(956)225-409237 [place] [address] 01-13-2023 06:21-0400 Body temperature 97 [degF] [facility] Work Phone: 4(367)772-831437 [place] [address] 01-13-2023 06:21-0400 Body weight 105.9 kg [facility] Work Phone: 9(742)348-687537 [place] [address] 01-13-2023 06:21-0400 Diastolic blood pressure 106 mm[Hg] [facility] Work Phone: 7(375)646-051537 [place] [address] 01-13-2023 06:21-0400 Heart rate 99 /min [facility] Work Phone: [facility] 01-13-2023 06:21-0400 SaO2% (BldA) [Mass fraction] 99 % [facility] Work Phone: [facility] 01-13-2023 06:21-0400 Systolic blood pressure 169 mm[Hg] [facility] Work Phone: [facility] 01-12-2023 13:20-0400 Diastolic blood pressure 101 mm[Hg] [facility] 01-12-2023 13:20-0400 Heart rate 70 /min [facility] 01-12-2023 13:20-0400 Respiratory rate 14 /min [facility] 01-12-2023 13:20-0400 SaO2% (BldA) [Mass fraction] 98 % [facility] 01-12-2023 13:20-0400 Systolic blood pressure 143 mm[Hg] [facility] 01-12-2023 10:45-0400 Body height 167.64 cm [facility] 01-12-2023 10:45-0400 Body mass index (BMI) [Ratio] 37.6 kg/m2 [facility] 01-12-2023 10:45-0400 Body temperature 95.2 [degF] [facility] 01-12-2023 10:45-0400 Body weight 105.8 kg [facility] 01-12-2023 02:13-0400 Diastolic blood pressure 87 mm[Hg] [facility] 01-12-2023 02:13-0400 Heart rate 84 /min [facility] 01-12-2023 02:13-0400 Respiratory rate 18 /min [facility] 01-12-2023 02:13-0400 SaO2% (BldA) [Mass fraction] 99 % [facility] 01-12-2023 02:13-0400 Systolic blood pressure 141 mm[Hg] [facility] 01-11-2023 22:58-0400 Body height 167.64 cm [facility] 01-11-2023 22:58-0400 Body mass index (BMI) [Ratio] 33 kg/m2 [facility] 01-11-2023 22:58-0400 Body temperature 96.8 [degF] [facility] 01-11-2023 22:58-0400 Body weight 92.98 kg [facility] 01-10-2023 17:27-0400 Body temperature 98.78 [degF] ESSIE FROMMELT DO [facility] 01-10-2023 17:27-0400 Diastolic Blood Pressure Non-Invasive 80 1 ESSIE FROMMELT DO [facility] 01-10-2023 17:27-0400 Heart rate 78 /min ESSIE FROMMELT DO [facility] 01-10-2023 17:27-0400 Respiratory rate 16 /min ESSIE [employer] DO [facility] 01-10-2023 17:27-0400 Systolic Blood Pressure Non-Invasive 148 1 ESSIE WASHINGTONMELT DO [facility] 01-10-2023 16:16-0400 Body temperature 98.78 [degF] ESSIE FROMMELT DO [facility] 01-10-2023 15:43-0400 Diastolic Blood Pressure Non-Invasive 89 1 ESSIE FROMMELT DO [facility] 01-10-2023 15:43-0400 Heart rate 77 /min ESSIE [employer] DO [facility] 01-10-2023 15:43-0400 Respiratory rate 16 /min ESSIE FROMMELT DO [facility] 01-10-2023 15:43-0400 Systolic Blood Pressure Non-Invasive 144 1 ESSIE [employer] DO [facility] 01-10-2023 15:09-0400 Heart rate 74 /min ESSIE LAWLERStirling Ultrac[employer]) [facility] 01-10-2023 14:32-0400 Respiratory rate 12 /min ESSIE LAWLERStirling Ultrac[employer]) [facility] 01-10-2023 13:47-0400 Body temperature 98.78 [degF] ESSIE LAWLERStirling Ultrac[employer]) [facility] 01-10-2023 13:47-0400 Diastolic Blood Pressure Non-Invasive 92 1 ESSIE LAWLERLingohub [facility] 01-10-2023 13:47-0400 Systolic Blood Pressure Non-Invasive 158 1 [facility] 01-09-2023 15:21-0400 Diastolic blood pressure 70 mm[Hg] [facility] 01-09-2023 15:21-0400 Heart rate 84 /min [facility] 01-09-2023 15:21-0400 Respiratory rate 16 /min [facility] 01-09-2023 15:21-0400 SaO2% (BldA) [Mass fraction] 97 % [facility] 01-09-2023 15:21-0400 Systolic blood pressure 139 mm[Hg] [facility] 01-09-2023 11:53-0400 Body height 167.64 cm [facility] 01-09-2023 11:53-0400 Body mass index (BMI) [Ratio] 41.1 kg/m2 [facility] 01-09-2023 11:53-0400 Body temperature 98.2 [degF] [facility] 01-09-2023 11:53-0400 Body weight 115.4 kg [facility] 01-07-2023 14:18-0400 Respiratory rate 14 /min [facility] 01-07-2023 12:01-0400 Diastolic blood pressure 99 mm[Hg] [facility] 01-07-2023 12:01-0400 Systolic blood pressure 154 mm[Hg] [facility] 01-07-2023 08:38-0400 Body height 167.64 cm [facility] 01-07-2023 08:38-0400 Body mass index (BMI) [Ratio] 34.5 kg/m2 [facility] 01-07-2023 08:38-0400 Body temperature 98.7 [degF] [facility] 01-07-2023 08:38-0400 Body weight 97.06 kg [facility] 01-07-2023 08:38-0400 Heart rate 82 /min [facility] 01-07-2023 08:38-0400 SaO2% (BldA) [Mass fraction] 99 % [facility] 11-19-2022 09:26-0400 Body temperature 98.7 [degF] [facility] 11-19-2022 09:26-0400 Diastolic blood pressure 81 mm[Hg] [facility] 11-19-2022 09:26-0400 Heart rate 101 /min [facility] 11-19-2022 09:26-0400 Respiratory rate 14 /min [facility] 11-19-2022 09:26-0400 SaO2% (BldA) [Mass fraction] 99 % [facility] 11-19-2022 09:26-0400 Systolic blood pressure 131 mm[Hg] [facility] 11-19-2022 09:24-0400 Body mass index (BMI) [Ratio] 39.3 kg/m2 [facility] 11-19-2022 09:24-0400 Body weight 110.5 kg [facility] 11-17-2022 08:43-0400 Body temperature 97.5 [degF] Andres Galaviz APRN.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 Work Phone: [facility] 11-17-2022 08:43-0400 Body weight 110.22 kg Andres Galaviz APRN.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 Work Phone: [facility] 11-17-2022 08:43-0400 Diastolic blood pressure 72 mm[Hg] Andres Galaviz APRN.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 Work Phone: [facility] 11-17-2022 08:43-0400 Heart rate 108 /min [facility] SORT WORKER.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 Work Phone: [facility] 11-17-2022 08:43-0400 Respiratory rate 16 /min [facility] SORT WORKER.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 Work Phone: [facility] 11-17-2022 08:43-0400 SaO2% (BldA) [Mass fraction] 97 % [facility] SORT WORKER.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 Work Phone: [facility] 11-17-2022 08:43-0400 Systolic blood pressure 120 mm[Hg] Andres [facility] SORT WORKER.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 Work Phone: [facility] 10-08-2022 08:44-0400 Body temperature 97 [degF] Shamika Athy PA-C Work Phone: [facility] 10-08-2022 08:44-0400 Body weight 109.14 kg Shamika Athy PA-C Work Phone: [facility] 10-08-2022 08:44-0400 Diastolic blood pressure 82 mm[Hg] Shamika Athy PA-C Work Phone: [facility] 10-08-2022 08:44-0400 Heart rate 94 /min Shamika Athy PA-C Work Phone: [facility] 10-08-2022 08:44-0400 Respiratory rate 16 /min Shamika Athy PA-C Work Phone: [facility] 10-08-2022 08:44-0400 SaO2% (BldA) [Mass fraction] 100 % Shamika Athy PA-C Work Phone: [facility] 10-08-2022 08:44-0400 Systolic blood pressure 112 mm[Hg] Shamika Athy PA-C Work Phone: [facility] 08-15-2022 13:46-0500 Body temperature 98.6 [degF] Dr. Sophy Gibbons Work Phone: 7(681)827-568537 [place] [address] 08-15-2022 13:46-0500 Diastolic blood pressure 95 mm[Hg] Dr. Sophy Gibbons Work Phone: 0(748)223-830537 [place] [address] 08-15-2022 13:46-0500 Heart rate 87 /min Dr. Sophy Gibbons Work Phone: 9(634)410-169437 [place] [address] 08-15-2022 13:46-0500 Respiratory rate 16 /min Dr. Sophy Gibbons Work Phone: 3(321)882-027937 [place] [address] 08-15-2022 13:46-0500 SaO2% (BldA) [Mass fraction] 99 % Dr. Sophy Gibbons Work Phone: 9(289)663-816737 [place] [address] 08-15-2022 13:46-0500 Systolic blood pressure 130 mm[Hg] Dr. Sophy Gibbons Work Phone: 7(028)011-129837 [place] [address] 08-15-2022 05:43-0500 Body weight 107.[address] Sophy Gibbons Work Phone: 0(321)562-205537 [place] [address] 08-13-2022 10:58-0500 Body height 167.[address] Sophy Gibbons Work Phone: 6(132)479-169837 [place] [address] 08-12-2022 22:34-0500 Body mass index (BMI) [Ratio] 37.9 kg/m2 Dr. Sophy Gibbons Work Phone: 5(952)879-636137 [place] [address] 08-12-2022 22:03-0500 Body temperature 98 [degF] Dr. Sophy Gibbons Work Phone: 0(965)664-898137 [place] [address] 08-12-2022 22:03-0500 Diastolic blood pressure 74 mm[Hg] Dr. Sophy Gibbons Work Phone: 2(720)840-561437 [place] [address] 08-12-2022 22:03-0500 Heart rate 82 /min Dr. Sophy Gibbons Work Phone: 4(593)011-310537 [place] [address] 08-12-2022 22:03-0500 Respiratory rate 15 /min Dr. Sophy Gibbons Work Phone: 3(546)068-258637 [place] [address] 08-12-2022 22:03-0500 SaO2% (BldA) [Mass fraction] 99 % Dr. Sophy Gibbons Work Phone: [facility] 08-12-2022 22:03-0500 Systolic blood pressure 118 mm[Hg] Dr. Sophy Gibbons Work Phone: [facility] 08-12-2022 15:27-0500 Body height 167.[address] Sophy Gibbons Work Phone: [facility] 08-12-2022 15:27-0500 Body mass index (BMI) [Ratio] 37.9 kg/m2 Dr. Sophy Gibbons Work Phone: [facility] 08-12-2022 15:27-0500 Body weight 106.[address] Sophy Gibbons Work Phone: [facility] 06-29-2022 08:39-0500 Body temperature 97.6 [degF] No Primary Care Physician [facility] 06-29-2022 08:39-0500 Diastolic blood pressure 90 mm[Hg] No Primary Care Physician [facility] 06-29-2022 08:39-0500 Heart rate 81 /min No Primary Care Physician [facility] 06-29-2022 08:39-0500 Respiratory rate 16 /min No Primary Care Physician [facility] 06-29-2022 08:39-0500 SaO2% (BldA) [Mass fraction] 99 % No Primary Care Physician [facility] 06-29-2022 08:39-0500 Systolic blood pressure 130 mm[Hg] No Primary Care Physician [facility] 06-26-2022 06:09-0500 Body height 167.64 cm No Primary Care Physician [facility] Work Phone: 06-26-2022 06:09-0500 Body mass index (BMI) [Ratio] 38.1 kg/m2 No Primary Care Physician [facility] 06-26-2022 06:09-0500 Body weight 107.1 kg No Primary Care Physician [facility] 06-25-2022 03:57-0500 Body temperature 98.1 [degF] No Primary Care Physician [facility] Work Phone: 06-25-2022 03:57-0500 Diastolic blood pressure 99 mm[Hg] No Primary Care Physician [facility] Work Phone: 06-25-2022 03:57-0500 Heart rate 96 /min No Primary Care Physician [facility] Work Phone: 06-25-2022 03:57-0500 Respiratory rate 18 /min No Primary Care Physician [facility] Work Phone: 06-25-2022 03:57-0500 SaO2% (BldA) [Mass fraction] 97 % No Primary Care Physician [facility] Work Phone: 06-25-2022 03:57-0500 Systolic blood pressure 134 mm[Hg] No Primary Care Physician [facility] Work Phone: 06-24-2022 16:48-0500 Body height 167.64 cm No Primary Care Physician [facility] Work Phone: 06-24-2022 16:48-0500 Body mass index (BMI) [Ratio] 38 kg/m2 No Primary Care Physician [facility] Work Phone: 06-24-2022 16:48-0500 Body weight 107.04 kg No Primary Care Physician [facility] Work Phone: 06-24-2022 15:30-0500 Body temperature 98.9 [degF] No Primary Care Physician [facility] Work Phone: 06-24-2022 15:30-0500 Diastolic blood pressure 99 mm[Hg] No Primary Care Physician [facility] Work Phone: 06-24-2022 15:30-0500 Heart rate 97 /min No Primary Care Physician [facility] Work Phone: 06-24-2022 15:30-0500 Respiratory rate 15 /min No Primary Care Physician [facility] Work Phone: 06-24-2022 15:30-0500 SaO2% (BldA) [Mass fraction] 100 % No Primary Care Physician [facility] Work Phone: 06-24-2022 15:30-0500 Systolic blood pressure 137 mm[Hg] No Primary Care Physician [facility] Work Phone: 06-24-2022 11:12-0500 Body height 167.64 cm No Primary Care Physician [facility] Work Phone: 06-24-2022 11:12-0500 Body mass index (BMI) [Ratio] 35.5 kg/m2 No Primary Care Physician [facility] Work Phone: 06-24-2022 11:12-0500 Body weight 99.79 kg No Primary Care Physician [facility] Work Phone: 04-09-2022 16:15-0400 Body temperature 98.2 [degF] No Primary Care Physician [facility] Work Phone: 04-09-2022 16:15-0400 Diastolic blood pressure 87 mm[Hg] No Primary Care Physician [facility] Work Phone: 04-09-2022 16:15-0400 Heart rate 89 /min No Primary Care Physician [facility] Work Phone: 04-09-2022 16:15-0400 Respiratory rate 18 /min No Primary Care Physician [facility] Work Phone: 04-09-2022 16:15-0400 SaO2% (BldA) [Mass fraction] 99 % No Primary Care Physician [facility] Work Phone: 04-09-2022 16:15-0400 Systolic blood pressure 136 mm[Hg] No Primary Care Physician [facility] Work Phone: 04-08-2022 11:30-0400 Body height 167.64 cm No Primary Care Physician [facility] Work Phone: 04-08-2022 11:30-0400 Body weight 96.6 kg No Primary Care Physician [facility] Work Phone: 04-06-2022 17:48-0400 Body mass index (BMI) [Ratio] 34.3 kg/m2 No Primary Care Physician [facility] Work Phone: 04-06-2022 15:39-0400 Body temperature 100.1 [degF] No Primary Care Physician [facility] Work Phone: 04-06-2022 15:39-0400 Diastolic blood pressure 79 mm[Hg] No Primary Care Physician [facility] Work Phone: 04-06-2022 15:39-0400 Heart rate 114 /min No Primary Care Physician [facility] Work Phone: 04-06-2022 15:39-0400 Respiratory rate 20 /min No Primary Care Physician [facility] Work Phone: 04-06-2022 15:39-0400 SaO2% (BldA) [Mass fraction] 98 % No Primary Care Physician [facility] Work Phone: 04-06-2022 15:39-0400 Systolic blood pressure 136 mm[Hg] No Primary Care Physician [facility] Work Phone: 04-06-2022 12:45-0400 Body height 167.64 cm No Primary Care Physician [facility] Work Phone: 04-06-2022 12:45-0400 Body mass index (BMI) [Ratio] 34.7 kg/m2 No Primary Care Physician [facility] Work Phone: 04-06-2022 12:45-0400 Body weight 97.5 kg No Primary Care Physician [facility] Work Phone: 04-05-2022 16:06-0400 Diastolic blood pressure 95 mm[Hg] No Primary Care Physician [facility] Work Phone: 04-05-2022 16:06-0400 Heart rate 103 /min No Primary Care Physician [facility] Work Phone: 04-05-2022 16:06-0400 Respiratory rate 16 /min No Primary Care Physician [facility] Work Phone: 04-05-2022 16:06-0400 SaO2% (BldA) [Mass fraction] 98 % No Primary Care Physician [facility] Work Phone: 04-05-2022 16:06-0400 Systolic blood pressure 127 mm[Hg] No Primary Care Physician [facility] Work Phone: 04-05-2022 11:53-0400 Body temperature 98 [degF] No Primary Care Physician [facility] Work Phone: 04-05-2022 11:50-0400 Body height 167.64 cm No Primary Care Physician [facility] Work Phone: 04-05-2022 11:50-0400 Body mass index (BMI) [Ratio] 34.4 kg/m2 No Primary Care Physician [facility] Work Phone: 04-05-2022 11:50-0400 Body weight 96.8 kg No Primary Care Physician [facility] Work Phone: 03-23-2022 12:28-0400 Body temperature 97 [degF] Sid Bravo MD Work Phone: [facility] 03-23-2022 12:28-0400 Body weight 97.07 kg Sid Bravo MD Work Phone: [facility] 03-23-2022 12:28-0400 Diastolic blood pressure 98 mm[Hg] Sid Bravo MD Work Phone: [facility] 03-23-2022 12:28-0400 Heart rate 105 /min Sid Bravo MD Work Phone: [facility] 03-23-2022 12:28-0400 Respiratory rate 20 /min Sid Bravo MD Work Phone: [facility] 03-23-2022 12:28-0400 SaO2% (BldA) [Mass fraction] 93 % Sid Bravo MD Work Phone: [facility] 03-23-2022 12:28-0400 Systolic blood pressure 130 mm[Hg] Sid Bravo MD Work Phone: [facility] 02-02-2022 09:33-0400 Body temperature 97.2 [degF] Alyssa Yeni SORT WORKER.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 Work Phone: [facility] 02-02-2022 09:33-0400 Body weight 92.53 kg Alyssa Yeni SORT WORKER.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 Work Phone: [facility] 02-02-2022 09:33-0400 Diastolic blood pressure 72 mm[Hg] Alyssa Yeni SORT WORKER.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 Work Phone: [facility] 02-02-2022 09:33-0400 Heart rate 74 /min Alyssa Yeni SORT WORKER.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 Work Phone: [facility] 02-02-2022 09:33-0400 Respiratory rate 16 /min Alyssa Yeni SORT WORKER.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 Work Phone: [facility] 02-02-2022 09:33-0400 SaO2% (BldA) [Mass fraction] 99 % Alyssa Yeni SORT WORKER.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 Work Phone: [facility] 02-02-2022 09:33-0400 Systolic blood pressure 120 mm[Hg] Alyssa Yeni SORT WORKER.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 Work Phone: [facility] 02-01-2022 17:18-0400 Diastolic blood pressure 100 mm[Hg] No Primary Care Physician [facility] Work Phone: 02-01-2022 17:18-0400 Heart rate 66 /min No Primary Care Physician [facility] Work Phone: 02-01-2022 17:18-0400 Respiratory rate 18 /min No Primary Care Physician [facility] Work Phone: 02-01-2022 17:18-0400 SaO2% (BldA) [Mass fraction] 97 % No Primary Care Physician [facility] Work Phone: 02-01-2022 17:18-0400 Systolic blood pressure 145 mm[Hg] No Primary Care Physician [facility] Work Phone: 02-01-2022 12:42-0400 Body height 167.64 cm No Primary Care Physician [facility] Work Phone: 02-01-2022 12:42-0400 Body mass index (BMI) [Ratio] 32.3 kg/m2 No Primary Care Physician [facility] Work Phone: 02-01-2022 12:42-0400 Body temperature 96.3 [degF] No Primary Care Physician [facility] Work Phone: 02-01-2022 12:42-0400 Body weight 90.71 kg No Primary Care Physician [facility] Work Phone: 01-26-2022 12:31-0400 Body height 167.64 cm [facility] Work Phone: 01-26-2022 12:31-0400 Body mass index (BMI) [Ratio] 32.6 kg/m2 [facility] Work Phone: 01-26-2022 12:31-0400 Body temperature 98.4 [degF] [facility] Work Phone: 01-26-2022 12:31-0400 Body weight 91.71 kg [facility] Work Phone: 01-26-2022 12:31-0400 Diastolic blood pressure 108 mm[Hg] [facility] Work Phone: 01-26-2022 12:31-0400 Heart rate 94 /min [facility] Work Phone: 01-26-2022 12:31-0400 Respiratory rate 22 /min [facility] Work Phone: 01-26-2022 12:31-0400 SaO2% (BldA) [Mass fraction] 99 % [facility] Work Phone: 01-26-2022 12:31-0400 Systolic blood pressure 154 mm[Hg] [facility] Work Phone: 01-23-2022 18:18-0400 Diastolic blood pressure 74 mm[Hg] [facility] Work Phone: 01-23-2022 18:18-0400 Respiratory rate 18 /min [facility] Work Phone: 01-23-2022 18:18-0400 Systolic blood pressure 122 mm[Hg] [facility] Work Phone: 01-23-2022 16:02-0400 Body height 167.64 cm [facility] Work Phone: 01-23-2022 16:02-0400 Body mass index (BMI) [Ratio] 33.9 kg/m2 [facility] Work Phone: 01-23-2022 16:02-0400 Body temperature 97.6 [degF] [facility] Work Phone: 01-23-2022 16:02-0400 Body weight 95.25 kg [facility] Work Phone: 01-23-2022 16:02-0400 Heart rate 99 /min [facility] Work Phone: 01-23-2022 16:02-0400 SaO2% (BldA) [Mass fraction] 100 % [facility] Work Phone: 01-22-2022 23:45-0400 Heart rate 91 /min [facility] Work Phone: 01-22-2022 23:45-0400 Respiratory rate 16 /min [facility] Work Phone: 01-22-2022 23:45-0400 SaO2% (BldA) [Mass fraction] 98 % [facility] Work Phone: 01-22-2022 21:26-0400 Body height 167.64 cm [facility] Work Phone: 01-22-2022 21:26-0400 Body mass index (BMI) [Ratio] 33.9 kg/m2 [facility] Work Phone: 01-22-2022 21:26-0400 Body temperature 97.8 [degF] [facility] Work Phone: 01-22-2022 21:26-0400 Body weight 95.25 kg [facility] Work Phone: 01-22-2022 21:26-0400 Diastolic blood pressure 97 mm[Hg] [facility] Work Phone: 01-22-2022 21:26-0400 Systolic blood pressure 140 mm[Hg] [facility] Work Phone: 01-16-2022 14:12-0400 Body height 167.64 cm [facility] Work Phone: 01-16-2022 14:12-0400 Body mass index (BMI) [Ratio] 33.9 kg/m2 [facility] Work Phone: 01-16-2022 14:12-0400 Body temperature 96.7 [degF] [facility] Work Phone: 01-16-2022 14:12-0400 Body weight 95.3 kg [facility] Work Phone: 01-16-2022 14:12-0400 Diastolic blood pressure 93 mm[Hg] [facility] Work Phone: 01-16-2022 14:12-0400 Heart rate 130 /min [facility] Work Phone: 01-16-2022 14:12-0400 Respiratory rate 18 /min [facility] Work Phone: 01-16-2022 14:12-0400 SaO2% (BldA) [Mass fraction] 98 % [facility] Work Phone: 01-16-2022 14:12-0400 Systolic blood pressure 126 mm[Hg] [facility] Work Phone: 11-16-2021 10:09-0400 Body temperature 98.3 [degF] [facility] Work Phone: 11-16-2021 10:09-0400 Diastolic blood pressure 82 mm[Hg] [facility] Work Phone: 11-16-2021 10:09-0400 Heart rate 98 /min [facility] Work Phone: 11-16-2021 10:09-0400 Systolic blood pressure 138 mm[Hg] [facility] Work Phone: 11-16-2021 08:39-0400 Body height 167.64 cm [facility] Work Phone: 11-16-2021 08:39-0400 Body mass index (BMI) [Ratio] 34.9 kg/m2 [facility] Work Phone: 11-16-2021 08:39-0400 Body weight 98.33 kg [facility] Work Phone: 11-16-2021 08:39-0400 Respiratory rate 16 /min [facility] Work Phone: 11-16-2021 08:39-0400 SaO2% (BldA) [Mass fraction] 96 % [facility] Work Phone: 10-29-2021 12:09-0400 Diastolic blood pressure 69 mm[Hg] [facility] Work Phone: 10-29-2021 12:09-0400 Heart rate 71 /min [facility] Work Phone: 10-29-2021 12:09-0400 Respiratory rate 15 /min [facility] Work Phone: 10-29-2021 12:09-0400 SaO2% (BldA) [Mass fraction] 98 % [facility] Work Phone: 10-29-2021 12:09-0400 Systolic blood pressure 124 mm[Hg] [facility] Work Phone: 10-29-2021 08:59-0400 Body height 167.64 cm [facility] Work Phone: 10-29-2021 08:59-0400 Body mass index (BMI) [Ratio] 34.6 kg/m2 [facility] Work Phone: 10-29-2021 08:59-0400 Body temperature 96.9 [degF] [facility] Work Phone: 10-29-2021 08:59-0400 Body weight 97.4 kg [facility] Work Phone: 10-24-2021 08:30-0400 Body temperature 97.3 [degF] [facility] Work Phone: 10-24-2021 08:30-0400 Diastolic blood pressure 92 mm[Hg] [facility] Work Phone: 10-24-2021 08:30-0400 Heart rate 98 /min [facility] Work Phone: 10-24-2021 08:30-0400 Respiratory rate 16 /min [facility] Work Phone: 10-24-2021 08:30-0400 SaO2% (BldA) [Mass fraction] 100 % [facility] Work Phone: 10-24-2021 08:30-0400 Systolic blood pressure 148 mm[Hg] [facility] Work Phone: 10-24-2021 08:18-0400 Body height 167.64 cm [facility] Work Phone: 10-24-2021 08:18-0400 Body mass index (BMI) [Ratio] 33.7 kg/m2 [facility] Work Phone: 10-24-2021 08:18-0400 Body weight 95 kg [facility] Work Phone: 08-10-2021 23:58-0500 Heart rate 107 /min [facility] Work Phone: 08-10-2021 23:58-0500 Respiratory rate 18 /min [facility] Work Phone: 08-10-2021 23:58-0500 SaO2% (BldA) [Mass fraction] 100 % [facility] Work Phone: 08-10-2021 22:57-0500 Diastolic blood pressure 88 mm[Hg] [facility] Work Phone: 08-10-2021 22:57-0500 Systolic blood pressure 125 mm[Hg] [facility] Work Phone: 08-10-2021 21:32-0500 Body mass index (BMI) [Ratio] 35.5 kg/m2 [facility] Work Phone: 08-10-2021 21:32-0500 Body temperature 97.6 [degF] [facility] Work Phone: 08-10-2021 21:32-0500 Body weight 99.79 kg [facility] Work Phone: Encounters Encounter Date Encounter Type Care Provider Facility Start: 02-15-2025 ambulatory [facility] Facility [facility] Start: 02-14-2025 Encounter for other preprocedural examination Venkatesh Friend [facility] Start: 01-31-2025 End: 01-31-2025 ambulatory Amy Solorzano [employer] Work Phone: -Laboratory Sophy Gibbons Start: 01-31-2025 End: 01-31-2025 Fartun Carbajal [employer] -Laboratory Sophy Gibbons Start: 01-31-2025 End: 01-31-2025 ambulatory Amy Solorzano VSC Facility:[facility] Start: 01-18-2025 End: 01-18-2025 Emergency department patient visit Rickey Dumont MD Work Phone: [facility] Comment on above: Generalized abdomina l pain (Primary Dx); Nausea Start: 01-18-2025 End: 01-18-2025 Evaluation and management of inpatient Rickey Dumont MD Work Phone: [facility] Start: 01-15-2025 End: 01-15-2025 Emergency department patient visit Mayra Jerome MD Work Phone: [facility] Comment on above: Abdominal pain, epig astric (Primary Dx) Start: 01-15-2025 End: 01-15-2025 Evaluation and management of inpatient Mayra Jerome MD Work Phone: [facility] Start: 01-14-2025 End: 01-14-2025 Emergency department patient visit Douglas Khan MD Work Phone: [facility] Comment on above: Right lower quadrant abdominal pain (Primary Dx); Right upper quadrant abdominal pain; Nausea and vomiting, unspecified vomiting type Start: 01-14-2025 End: 01-14-2025 Evaluation and management of inpatient Douglas Khan MD Work Phone: [facility] Start: 01-12-2025 End: 01-12-2025 Emergency department patient visit Mayra Jerome MD Work Phone: [facility] Comment on above: Acute pancreatitis, unspecified complication status, unspecified pancreatitis type (Primary Dx) Start: 01-12-2025 End: 01-12-2025 Evaluation and management of inpatient Mayra Jerome MD Work Phone: [facility] Start: 01-11-2025 ambulatory Nayana Peter [facility] ty:[facility] Start: 01-08-2025 Dr. Frantz Coulter DO [facility] Work Phone: Start: 01-07-2025 Dr. Frantz Coulter [facility] Work Phone: Start: 01-07-2025 ambulatory Amy Radford in [facility] Facility:[facility] Start: 01-07-2025 End: 01-08-2025 Evaluation and management of inpatient Amy Solorzano [employer] Work Phone: -Progressive Care Unit Start: 01-07-2025 End: 01-08-2025 Dr. Frantz Coulter DO -Progressive Care Unit Work Phone: Start: 01-04-2025 End: 01-04-2025 Amy Solorzano [employer] Work Phone: -Emergency Department Work Phone: Start: 01-04-2025 End: 01-04-2025 Emergency department patient visit Amy Solorzano [employer]C Work Phone: [facility] Work Phone: Start: 01-02-2025 End: 01-02-2025 Amy Solorzano [employer] Work Phone: -Emergency Department Work Phone: Start: 01-02-2025 End: 01-02-2025 Emergency department patient visit Amy Solorzano [employer] MA[employer]TE[employer]C Work Phone: [facility] Work Phone: Start: 01-01-2025 Dr. Frantz Coulter DO -[facility] Work Phone: Start: 12-31-2024 ambulatory Amy Frankl in [facility] Facility:[facility] Start: 12-31-2024 End: 01-01-2025 Evaluation and management of inpatient Amy Solorzano [employer] Work Phone: [facility] Work Phone: Start: 12-31-2024 End: 01-01-2025 Dr. Dewayne Grant DO -Intensive Care Unit Work Phone: Start: 12-31-2024 Dr. David Hernandez and -[facility] Work Phone: Start: 12-30-2024 Non-patient / Non-visit Dr. Dwaine Bain MD -[facility] Work Phone: Start: 12-30-2024 ambulatory Amy Frankl in [facility] Facility:[facility] Start: 12-30-2024 End: 12-31-2024 Evaluation and management of inpatient Dr. David Bain MD -Intensive Care Unit Work Phone: Start: 12-30-2024 End: 12-31-2024 Dr. David Bain MD -Intensive Care Unit Work Phone: Start: 12-25-2024 End: 12-25-2024 ambulatory Amy Solorzano [employer] Work Phone: [facility] Work Phone: Start: 12-25-2024 End: 12-25-2024 Patient encounter procedure Nayana Peter PA -Ultrasound [facility] Work Phone: Start: 12-25-2024 End: 12-25-2024 Nayana Peter PA -Ultrasound [facility] Work Phone: Start: 12-25-2024 End: 12-25-2024 ambulatory Nayana Peter Facility:[facility] Start: 12-13-2024 End: 12-13-2024 ambulatory Amy Solorzano [employer]C Work Phone: [facility] Work Phone: Start: 12-13-2024 End: 12-13-2024 Patient encounter procedure Nayana Peter PA -Laboratory Work Phone: Start: 12-13-2024 End: 12-13-2024 Nayana Peter PA -Laboratory Work Phone: Start: 12-13-2024 End: 12-13-2024 Patient encounter procedure Nayana Peter PA -[facility] Work Phone: Start: 12-13-2024 End: 12-13-2024 Nayana Peter PA -[facility] Work Phone: Start: 12-13-2024 End: 12-13-2024 ambulatory Aym Solorzano [employer]-C Work Phone: [facility] Work Phone: Start: 12-13-2024 End: 12-13-2024 ambulatory Amy Solorzano C Facility:[facility] Start: 11-28-2024 Non-patient / Non-visit Dr. Gale Lr DO -[facility] Work Phone: Start: 11-28-2024 Dr. Gale Lr DO -[facility] Work Phone: Start: 11-28-2024 Non-patient / Non-visit Clare GRADY-C -[facility] Start: 11-28-2024 Clare jauregui PA-C -[facility] Start: 11-27-2024 Non-patient / Non-visit Clare GRADY-C -[facility] Start: 11-27-2024 Clare jauregui PA-C -[facility] Start: 11-26-2024 Non-patient / Non-visit Dr. Clair Rao MD [facility] Work Phone: Start: 11-26-2024 Dr. Brenda alcocer MD [facility] Work Phone: Start: 11-26-2024 Non-patient / Non-visit Dr. Fahad Welch MD [facility] Start: 11-26-2024 Dr. Annalise Welch MD [facility] Start: 11-25-2024 Non-patient / Non-visit Dr. Fahad Welch MD [facility] Start: 11-25-2024 Dr. Annalise Welch MD [facility] Start: 11-25-2024 ambulatory Amy Radford in [facility] Facility:[facility] Start: 11-25-2024 End: 11-28-2024 Evaluation and management of inpatient Dr. Brenda Rao MD -Medical Surgical 3 Work Phone: Start: 11-25-2024 End: 11-28-2024 Dr. Gale Lr DO -[facility] 3 Work Phone: Start: 10-26-2024 ambulatory Abdirizak Forrest Facility: [facility] Start: 10-25-2024 End: 10-25-2024 ambulatory Amy Solorzano [employer]C Work Phone: [facility] Work Phone: Start: 10-25-2024 End: 10-25-[address] Abdirizak Forrest DPM -Cardiovascular Services Work Phone: Start: 10-25-2024 End: 10-25-2024 Dr. Abdirizak Forrest DPM -Cardiovascular Services Work Phone: Start: 10-25-2024 End: 10-25-2024 ambulatory Abdirizak Forrest Facility:[facility] Start: 10-17-2024 End: 10-17-2024 ambulatory [facility] LINE MAINTENANCE-C Work Phone: [facility] Work Phone: Start: 10-17-2024 End: 10-17-2024 Patient encounter procedure [facility] Amy Rashad LINE MAINTENANCE-C -Laboratory, S[facility] Gibbons Start: 10-17-2024 End: 10-17-2024 [facility] Amy Rashad [employer] MAINTENANCE-C -Laboratory Sophy Gibbons Start: 10-17-2024 End: 10-17-2024 [facility] Facility:[facility] Start: 07-03-2024 End: 07-03-2024 Patient encounter procedure Irais GRADY Work Phone: [facility] Comment on above: Acute cough (Primary Dx) Start: 07-03-2024 End: 07-03-[address] [facility] Facility:[facility] Start: 07-03-2024 End: 07-03-2024 Subsequent hospital visit by physician [facility] Work Phone: Radiology Comment on above: Acute cough [R05.1] Start: 06-26-2024 End: 06-26-2024 [facility] Start: 06-26-2024 End: 06-26-2024 Office outpatient visit 25 minutes Frantz Arevalo PA-C Work Phone: [facility] Comment on above: Bronchopneumonia (Pr imary Dx); Mild intermittent asthma, uncomplicated Start: 04-25-2024 End: 04-25-2024 [facility] Facility:[facility] Start: 11-08-2023 End: 11-08-2023 [facility] Work Phone: Start: 11-08-2023 End: 11-08-2023 Patient encounter procedure [facility] Work Phone: Start: 07-23-2023 End: 07-23-2023 Admission to same day surgery center [facility]-Surgical Day Care Start: 07-23-2023 End: 07-23-2023 ambulatory No Primary Care Physician [facility] Work Phone: Start: 07-23-2023 End: 07-23-2023 No Primary Care Physician [facility]-Surgical Day Care Start: 07-12-2023 End: 07-12-2023 No Primary Care Physician [facility]-Emergency Department Work Phone: Start: 07-02-2023 End: 07-02-2023 Emergency department patient visit No Primary Care Physician [facility] Work Phone: Start: 07-02-2023 End: 07-02-2023 No Primary Care Physician [facility]-Emergency Department Work Phone: Start: 07-01-2023 End: 07-01-2023 Office outpatient visit 15 minutes Andres Galvaiz APRN.[facility] Work Phone: [facility] Comment on above: Pain of right eye (P rimary Dx) Start: 06-30-2023 End: 06-30-2023 No Primary Care Physician [facility]-Emergency Department Work Phone: Start: 06-28-2023 End: 06-28-2023 Emergency department patient visit No Primary Care Physician [facility]-Emergency Department Work Phone: Start: 06-28-2023 End: 06-28-2023 No Primary Care Physician [facility]-Emergency Department Work Phone: Start: 06-27-2023 End: 06-27-2023 Emergency department patient visit No Primary Care Physician [facility]-Emergency Department Work Phone: Start: 06-27-2023 End: 06-27-2023 No Primary Care Physician [facility]-Emergency Department Work Phone: Start: 06-26-2023 End: 06-26-2023 Emergency department patient visit No Primary Care Physician [facility]-Emergency Department Work Phone: Start: 06-26-2023 End: 06-26-2023 No Primary Care Physician [facility]-Emergency Department Work Phone: Start: 06-25-2023 End: 06-25-2023 Emergency department patient visit No Primary Care Physician [facility]-Emergency Department Work Phone: Start: 06-25-2023 End: 06-25-2023 No Primary Care Physician [facility]-Emergency Department Work Phone: Start: 05-18-2023 End: 05-18-2023 ambulatory No Primary Care Physician [facility] Work Phone: Start: 05-18-2023 End: 05-18-2023 Patient encounter procedure No Primary Care Physician [facility]-Laboratory, Specimen Work Phone: Start: 05-18-2023 End: 05-18-2023 No Primary Care Physician [facility]-Laboratory, Specimen Work Phone: Start: 05-09-2023 Non-patient / Non-visit No Kristina cormier Care Physician [facility] [facility] Work Phone: Start: 05-09-2023 [facility] Work Phone: [facility] [facility] Work Phone: Start: 05-08-2023 Non-patient / Non-visit No Kristina casa Care Physician [facility] [facility] Work Phone: Start: 05-08-2023 [facility] Work Phone: [facility] [facility] Work Phone: Start: 05-07-2023 Non-patient / Non-visit No Kristina cormier Care Physician [facility] [facility] Work Phone: Start: 05-07-2023 [facility] Work Phone: [facility] [facility] Work Phone: Start: 05-06-2023 Non-patient / Non-visit No Kristina cormier Care Physician [facility] [facility] Work Phone: Start: 05-06-2023 [facility] Work Phone: [facility] [facility] Work Phone: Start: 05-05-2023 Non-patient / Non-visit No Kristina cormier Care Physician [facility] [facility] Work Phone: Start: 05-05-2023 [facility] Work Phone: [facility] [facility] Work Phone: Start: 05-04-2023 End: 05-09-2023 Evaluation and management of inpatient [facility] Work Phone: [facility] Work Phone: Start: 05-04-2023 End: 05-09-2023 [facility] Work Phone: [facility]-Medical Surgical 3 Work Phone: Start: 05-04-2023 ambulatory [facility] Work Phone: [facility] Work Phone: Start: 05-04-2023 [facility] Work Phone: [facility] [employer] Inpatients Work Phone: Start: 05-04-2023 Non-patient / Non-visit No Kristina cormier Care Physician [facility] [facility] Work Phone: Start: 05-04-2023 [facility] Work Phone: [facility] [facility] Work Phone: Start: 04-15-2023 End: 04-15-2023 Emergency department patient visit No Primary Care Physician [facility]-Emergency Department Work Phone: Start: 04-15-2023 End: 04-15-2023 [facility] Work Phone: [facility]-Emergency Department Work Phone: Start: 04-15-2023 End: 04-15-2023 Patient encounter procedure Abdirizak Peña APRN.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 Work Phone: [facility] Comment on above: SOB (shortness of br eath) (Primary Dx); Abdominal pain, unspecified abdominal location Start: 04-14-2023 End: 04-14-2023 [facility] Start: 04-14-2023 End: 04-14-2023 [facility] Start: 04-13-2023 End: 04-13-2023 Emergency department patient visit [facility] Start: 04-13-2023 End: 04-13-2023 [facility] Work Phone: [facility]-Emergency Department Work Phone: Start: 03-26-2023 ambulatory No Pcp SORT WORKER George Ruiz [employer] Start: 03-12-2023 Orders Only Pilar farrar APRN.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 Work Phone: [facility] Comment on above: Chronic abdominal pa in (Primary Dx) Start: 03-10-2023 Telephone encounter Amy redding LINE MAINTENANCE Work Phone: NOC Comment on above: Follow Up (Post Disc harge F/U - 1st attempt made. No answer./) Start: 03-09-2023 Telephone encounter Pilar barrios APRN.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 Work Phone: [facility] Comment on above: Consult Start: 03-06-2023 End: 03-06-2023 Emergency department patient visit [facility] Work Phone: [facility] Work Phone: Start: 03-06-2023 End: 03-06-2023 [facility] Work Phone: [facility]-Emergency Department Work Phone: Start: 03-02-2023 ambulatory No Pcp SORT WORKER George cervantes [place] Start: 03-02-2023 Telephone encounter Almita lara PA-C Work Phone: [facility] Provider Adult Comment on above: Appointment Start: 03-01-2023 End: 03-04-2023 Evaluation and management of inpatient [facility] Facility:[facility] Start: 03-01-2023 End: 03-01-2023 Patient encounter procedure Dewayne Doran MD Work Phone: Gastroenterology Comment on above: Vomiting, unspecifie d vomiting type, unspecified whether nausea present (Primary Dx); Chronic nausea Start: 02-25-2023 End: 02-26-2023 Emergency department patient visit [facility] Work Phone: [facility] Work Phone: Start: 02-25-2023 End: 02-26-2023 [facility] Work Phone: [facility]-Emergency Department Work Phone: Start: 02-24-2023 End: 02-24-2023 Emergency department patient visit No Primary Care Physician [facility]-Emergency Department Work Phone: Start: 02-24-2023 End: 02-24-2023 [facility] Work Phone: [facility]-Emergency Department Work Phone: Start: 02-23-2023 End: 02-23-2023 Patient encounter procedure Pilar Magdaleno APRN.[facility] Work Phone: [facility] [place] Comment on above: Chronic nausea (Prim crystal Dx); Chronic abdominal pain Start: 02-17-2023 End: 02-18-2023 Emergency department patient visit DEWAYNE BRAGA [facility] Start: 02-11-2023 End: 02-11-2023 ambulatory GERALDINE SILVA DO Facility:B Start: 02-10-2023 End: 02-11-2023 Observation HELENA SILVERMAN SORT WORKER-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 [facility] Start: 02-08-2023 End: 02-08-2023 Emergency department patient visit [facility] Work Phone: [facility]-Emergency Department Work Phone: Start: 02-08-2023 End: 02-08-2023 [facility] Work Phone: [facility]-Emergency Department Work Phone: Start: 02-04-2023 End: 02-04-2023 Patient encounter procedure Irais GRADY Work Phone: [facility] Comment on above: Generalized abdomina l pain (Primary Dx) Start: 02-04-2023 End: 02-04-2023 Emergency department patient visit [facility] Work Phone: [facility]-Emergency Department Work Phone: Start: 02-04-2023 End: 02-04-2023 [facility] Work Phone: [facility]-Emergency Department Work Phone: Start: 01-25-2023 End: 01-25-2023 Emergency department patient visit [facility] Work Phone: [facility]-Emergency Department Work Phone: Start: 01-25-2023 End: 01-25-2023 [facility] Work Phone: [facility]-Emergency Department Work Phone: Start: 01-24-2023 End: 01-24-2023 Emergency department patient visit ABDIRIZAK RAMIREZ [facility] Start: 01-24-2023 End: 01-24-2023 Emergency department patient visit Abdirizak Ramirez MD Work Phone: [facility] Comment on above: Nausea and vomiting, unspecified vomiting type (Primary Dx); Syncope and collapse Start: 01-17-2023 End: 01-17-2023 Emergency department patient visit GERALDINE ROLAND [facility] Start: 01-15-2023 Non-patient / Non-visit [facility] Work Phone: [facility] [facility] Work Phone: Start: 01-15-2023 [facility] Work Phone: [facility] Work Phone: Start: 01-14-2023 End: 01-15-2023 Evaluation and management of inpatient [facility] Work Phone: [facility] 3 Work Phone: Start: 01-14-2023 End: 01-15-2023 observation encounter [facility] Work Phone: [facility] Work Phone: Start: 01-14-2023 End: 01-15-2023 [facility] Work Phone: [facility] Work Phone: Start: 01-13-2023 End: 01-13-2023 Emergency department patient visit [facility] Work Phone: [facility]-Emergency Department Work Phone: Start: 01-13-2023 End: 01-13-2023 [facility] Work Phone: [facility]-Emergency Department Work Phone: Start: 01-12-2023 End: 01-12-2023 Emergency department patient visit [facility]-Emergency Department Work Phone: Start: 01-12-2023 End: 01-12-2023 [facility] Work Phone: [facility]-Emergency Department Work Phone: Start: 01-11-2023 End: 01-12-2023 Emergency department patient visit [facility]-Emergency Department Work Phone: Start: 01-11-2023 End: 01-12-2023 [facility] Work Phone: [facility]-Emergency Department Work Phone: Start: 01-10-2023 End: 01-10-2023 Emergency department patient visit ESSIE DOWNS DO Facility:[facility] Start: 01-10-2023 End: 01-10-2023 Emergency department patient visit [facility] Start: 01-09-2023 End: 01-09-2023 Emergency department patient visit [facility]-Emergency Department Work Phone: Start: 01-09-2023 End: 01-09-2023 [facility] Work Phone: [facility]-Emergency Department Work Phone: Start: 01-07-2023 End: 01-07-2023 Emergency department patient visit [facility]-Emergency Department Work Phone: Start: 01-07-2023 End: 01-07-2023 [facility] Work Phone: [facility]-Emergency Department Work Phone: Start: 11-25-2022 End: 11-25-2022 ambulatory [facility] Work Phone: [facility] Work Phone: Start: 11-25-2022 End: 11-25-2022 Patient encounter procedure [facility]-Laboratory Work Phone: Start: 11-25-2022 End: 11-25-2022 [facility] Start: 11-19-2022 End: 11-19-2022 [facility] Start: 11-19-2022 End: 11-19-2022 [facility] Work Phone: [facility]-Emergency Department Work Phone: Start: 11-17-2022 End: 11-17-2022 Office outpatient visit 25 minutes Andres Galaviz APRN.CNP Work Phone: [facility] Comment on above: Facial infection (Pr imary Dx) Start: 10-11-2022 Telephone encounter Irais GRADY Work Phone: [facility] Comment on above: Results Start: 10-08-2022 End: 10-08-2022 Patient encounter procedure Shamika Goins PA-C Work Phone: [facility] Comment on above: Toe infection (Prima ry Dx); Facial infection; History of MRSA infection Start: 08-14-2022 Non-patient / Non-visit Dr. Patrick Gibbons Work Phone: [facility] Start: 08-13-2022 Non-patient / Non-visit Dr. Patrick Gibbons Work Phone: [facility] Start: 08-12-2022 Non-patient / Non-visit Dr. Patrick Gibbons Work Phone: [facility] Start: 08-12-2022 End: 08-15-2022 Evaluation and management of inpatient Dr. Sophy Gibbons Work Phone: [facility]-Progressive Care Unit Start: 06-29-2022 Non-patient / Non-visit No Kristina cormier Care Physician [facility] Start: 06-28-2022 Non-patient / Non-visit No Kristina cormier Care Physician [facility] [facility] Start: 06-27-2022 Non-patient / Non-visit No Kristina cormier Care Physician [facility] Inpatient Physicians Start: 06-26-2022 Non-patient / Non-visit No Kristina cormier Care Physician [facility] Start: 06-25-2022 Non-patient / Non-visit No Kristina cormier Care Physician [facility] Start: 06-24-2022 End: 06-29-2022 Evaluation and management of inpatient No Primary Care Physician [facility] 3 Start: 06-23-2022 End: 06-23-2022 ambulatory No Primary Care Physician [facility] Work Phone: Start: 06-23-2022 End: 06-23-2022 Patient encounter procedure No Primary Care Physician [facility], Specimen Start: 05-07-2022 End: 05-07-2022 ambulatory No Primary Care Physician [facility] Work Phone: Start: 05-07-2022 End: 05-07-2022 Patient encounter procedure No Primary Care Physician [facility] Start: 04-20-2022 End: 04-20-2022 ambulatory No Primary Care Physician [facility] Work Phone: Start: 04-20-2022 End: 04-20-2022 Departed Referred No Primary Care Physician [place] [id number] Start: 04-20-2022 Registered Referred No Primary Care Physician [place] [id number] Start: 04-13-2022 End: 04-13-2022 ambulatory No Primary Care Physician [facility] Work Phone: Start: 04-13-2022 End: 04-13-2022 Departed Referred No Primary Care Physician [place] [id number] Start: 04-13-2022 Registered Referred No Primary Care Physician [place] [id number] Start: 04-10-2022 End: 04-10-2022 ambulatory No Primary Care Physician [facility] Work Phone: Start: 04-10-2022 End: 04-10-2022 Departed Referred No Primary Care Physician [place] [id number] Start: 04-09-2022 Non-patient / Non-visit No Kristina cormier Care Physician [facility] Start: 04-08-2022 Non-patient / Non-visit No Kristina cormier Care Physician [facility] Start: 04-07-2022 Non-patient / Non-visit No Kristina cormier Care Physician [facility] Start: 04-06-2022 Non-patient / Non-visit No Kristina cormier Care Physician [facility]patient Physicians Start: 04-06-2022 End: 04-09-2022 Evaluation and management of inpatient No Primary Care Physician [facility] 3 Start: 04-05-2022 End: 04-05-2022 Emergency department patient visit No Primary Care Physician [facility] Start: 03-23-2022 End: 03-23-2022 Subsequent hospital visit by physician Santiago [facility] [place] Work Phone: Radiology Comment on above: Acute cough [R05.1] Start: 03-23-2022 End: 03-23-2022 Patient encounter procedure Sid Bravo MD Work Phone: [facility] [place] [facility] Comment on above: Acute cough (Primary Dx); Mild intermittent asthmatic bronchitis without complication Start: 02-16-2022 End: 02-16-2022 Patient encounter procedure No Primary Care Physician [facility] Start: 02-02-2022 End: 02-02-2022 Patient encounter procedure Alyssa Jaime APRN.CNP Work Phone: [facility] Comment on above: Abnormal lung scan ( Primary Dx); Nausea and vomiting, unspecified vomiting type Start: 02-01-2022 End: 02-01-2022 Emergency department patient visit No Primary Care Physician [facility] Start: 01-30-2022 End: 01-30-2022 Patient encounter procedure No Primary Care Physician [facility] Start: 01-30-2022 End: 01-30-2022 Patient encounter procedure No Primary Care Physician [facility] Start: 01-26-2022 End: 01-26-2022 Emergency department patient visit [facility] Start: 01-23-2022 End: 01-23-2022 Emergency department patient visit [facility] Start: 01-22-2022 End: 01-22-2022 Emergency department patient visit [facility] Start: 01-16-2022 End: 01-16-2022 [facility] Start: 11-16-2021 End: 11-16-2021 [facility] Start: 10-29-2021 End: 10-29-2021 [facility] Start: 10-24-2021 End: 10-24-2021 [facility] Start: 08-10-2021 End: 08-11-2021 [facility] Start: 05-15-2021 End: 05-15-2021 Subsequent hospital visit by physician [facility] Work Phone: Radiology Comment on above: Cough [R05.9] Procedures Date Procedure Procedure Detail Performing Clinician Start: 01-31-2025 Blood count smear mc rscp w/mnl difrntl wbc count Amypalma Solorzano [employer] Work Phone: Start: 01-31-2025 Mean corpuscular hem oglobin concentration determination Amypalma Solorzano [employer] Work Phone: Start: 01-31-2025 Nucleated red blood cell count procedure Amy Rashad [employer] Work Phone: Start: 01-31-2025 Platelet mean volume determination Amykeiko Solorzano [employer] Work Phone: Start: 01-31-2025 Triacylglycerol lipa se measurement Amy Rashad [employer] Work Phone: Start: 01-18-2025 ALFARO URINE CULTURE TUBE Rickey Dumont MD Work Phone: Start: 01-18-2025 URINALYSIS WITH REFL EX MICROSCOPIC Rickey Dumont MD Work Phone: Start: 01-18-2025 Urine test visual color cmprsn meths Rickey Dumont MD Work Phone: Start: 01-18-2025 Urnls dip stick/tabl et reagent auto microscopy Rickey Dumont MD Work Phone: Start: 01-18-2025 Basic metabolic pane l calcium total Rickey Dumont MD Work Phone: Start: 01-18-2025 CBC W Auto Different ial panel - Blood Rickey Dumont MD Work Phone: Start: 01-15-2025 CBC W Auto Different ial panel - Blood Mayra Jerome MD Work Phone: Start: 01-15-2025 Comprehensive metabo lic panel Mayra Jerome MD Work Phone: Start: 01-14-2025 Ct abdomen & pelvis w/o contrast material Douglas Khan MD Work Phone: Start: 01-14-2025 Basic metabolic pane l calcium total Douglas Khan MD Work Phone: Start: 01-14-2025 CBC W Auto Different ial panel - Blood Douglas Khan MD Work Phone: Start: 01-14-2025 ALFARO URINE CULTURE TUBE Douglas Khan MD Work Phone: Start: 01-14-2025 URINALYSIS WITH REFL EX MICROSCOPIC Douglas Khan MD Work Phone: Start: 01-14-2025 Urnls dip stick/tabl et reagent auto microscopy Douglas Khan MD Work Phone: Start: 01-14-2025 YELLOW URINE NO ADDITIVE Douglas Khan MD Work Phone: Start: 01-12-2025 Us abdominal real ti me w/image limited Mayra Jerome MD Work Phone: Start: 01-12-2025 Basic metabolic pane l calcium total Mayra Jerome MD Work Phone: Start: 01-12-2025 CBC W Auto Different ial panel - Blood Mayra Jerome MD Work Phone: Start: 01-08-2025 Blood count smear mc rscp w/mnl difrntl wbc count Amy Solorzano [employer] Work Phone: Start: 01-08-2025 Estimated creatinine clearance Amy Solorzano [employer] Work Phone: Start: 01-08-2025 Mean corpuscular hem oglobin concentration determination Amy Solorzano [employer] Work Phone: Start: 01-08-2025 Nucleated red blood cell count procedure Amy Solorzano NP-C Work Phone: Start: 01-08-2025 Platelet mean volume determination Amy Solorzano [employer] Work Phone: Start: 01-07-2025 Computed tomography of abdomen and pelvis with intravenous contrast Amy Solorzano [employer] Work Phone: Start: 01-07-2025 Benzodiazepine measu rement, urine Amy Solorzano [employer] Work Phone: Start: 01-07-2025 Cocaine measurement, urine Amy Solorzano [employer] Work Phone: Start: 01-07-2025 Methadone measurement, urine Amy Solorzano [employer] Work Phone: Start: 01-07-2025 Urine cannabinoid measurement Amy Solorzano [employer] Work Phone: Start: 01-07-2025 Urine microscopy: red cells Amy Solorzano [employer] Work Phone: Start: 01-07-2025 Urine opiate measurement Amy Solorzano [employer] Work Phone: Start: 01-07-2025 Urnls dip stick/tabl et reagent auto microscopy Amy Solorzano [employer] Work Phone: Start: 01-07-2025 Blood count smear mc rscp w/mnl difrntl wbc count Amy Solorzano [employer] Work Phone: Start: 01-07-2025 Estimated creatinine clearance Amy Solorzano [employer] Work Phone: Start: 01-07-2025 Mean corpuscular hem oglobin concentration determination Amy Solorzano [employer] Work Phone: Start: 01-07-2025 Nucleated red blood cell count procedure Amy Solorzano [employer] Work Phone: Start: 01-07-2025 Platelet mean volume determination Amy Solorzano NP-C Work Phone: Start: 01-04-2025 Computed tomography of abdomen and pelvis with intravenous contrast Amy TINAJEROC Work Phone: Start: 01-04-2025 Benzodiazepine measu rement, urine Amy Solorzano NP-C Work Phone: Start: 01-04-2025 Cocaine measurement, urine Amy Solorzano [employer] Work Phone: Start: 01-04-2025 Methadone measurement, urine Amy Solorzano [employer] Work Phone: Start: 01-04-2025 Urine cannabinoid measurement Amy Solorzano [employer] Work Phone: Start: 01-04-2025 Urine opiate measurement Amy Solorzano [employer] Work Phone: Start: 01-04-2025 Venous oxygen satura tion measurement Amy Solorzano NP-C Work Phone: Start: 01-04-2025 Blood count smear mc rscp w/mnl difrntl wbc count Amy Solorzano NP-C Work Phone: Start: 01-04-2025 Estimated creatinine clearance Amy Solorzano NP-C Work Phone: Start: 01-04-2025 Mean corpuscular hem oglobin concentration determination Amy Solorzano NP-C Work Phone: Start: 01-04-2025 Nucleated red blood cell count procedure Amy Solorzano NP-C Work Phone: Start: 01-04-2025 Osmolality measureme nt, serum Amy Solorzano [employer] Work Phone: Start: 01-04-2025 Platelet mean volume determination Amy Solorzano NP-C Work Phone: Start: 01-04-2025 Triacylglycerol lipa se measurement Amy Solorzano NP-C Work Phone: Start: 01-02-2025 Blood count smear mc rscp w/mnl difrntl wbc count Amy Solorzano [employer] Work Phone: Start: 01-02-2025 Estimated creatinine clearance Amy Solorzano [employer] Work Phone: Start: 01-02-2025 Mean corpuscular hem oglobin concentration determination Amy Solorzano [employer] Work Phone: Start: 01-02-2025 Nucleated red blood cell count procedure Amy Solorzano [employer] Work Phone: Start: 01-02-2025 Platelet mean volume determination Amy Solorzano [employer] Work Phone: Start: 01-02-2025 Triacylglycerol lipa se measurement Amy Solorzano [employer] Work Phone: Start: 01-01-2025 Estimated creatinine clearance Amy Solorzano [employer] Work Phone: Start: 01-01-2025 Oxygen measurement Mirian Solorzano [employer] Work Phone: Start: 01-01-2025 Venous oxygen satura tion measurement Amy Solorzano [employer] Work Phone: Start: 12-31-2024 Estimated creatinine clearance Amy Solorzano [employer] Work Phone: Start: 12-31-2024 Venous oxygen satura tion measurement Amy Solorzano [employer] Work Phone: Start: 12-31-2024 Blood count smear mc rscp w/mnl difrntl wbc count Amy Solorzano [employer] Work Phone: Start: 12-31-2024 Mean corpuscular hem oglobin concentration determination Amy Solorzano [employer] Work Phone: Start: 12-31-2024 Nucleated red blood cell count procedure Amy Solorzano [employer] Work Phone: Start: 12-31-2024 Platelet mean volume determination Amy Solorzano [employer] Work Phone: Start: 12-31-2024 Urine microscopy: red cells Amy Solorzano [employer] Work Phone: Start: 12-31-2024 Urnls dip stick/tabl et reagent auto microscopy Amy Solorzano [employer] Work Phone: Start: 12-31-2024 Estimated creatinine clearance Amy Solorzano [employer] Work Phone: Start: 12-30-2024 Venous oxygen satura tion measurement Amy Solorzano [employer] Work Phone: Start: 12-30-2024 Urine culture Amy kim [employer] Work Phone: Start: 12-30-2024 Benzodiazepine measu rement, urine Amy Solorzano [employer] Work Phone: Start: 12-30-2024 Cocaine measurement, urine Amy Solorzano [employer] Work Phone: Start: 12-30-2024 Methadone measurement, urine Amy Solorzano [employer] Work Phone: Start: 12-30-2024 Urine cannabinoid measurement Amy Solorzano [employer] Work Phone: Start: 12-30-2024 Urine microscopy: red cells Amy Solorzano [employer] Work Phone: Start: 12-30-2024 Urine opiate measurement Amy Solorzano [employer] Work Phone: Start: 12-30-2024 Urnls dip stick/tabl et reagent auto microscopy Amy Solorzano [employer] Work Phone: Start: 12-30-2024 Blood count smear mc rscp w/mnl difrntl wbc count Amy Solorzano [employer] Work Phone: Start: 12-30-2024 Estimated creatinine clearance Amy Solorzano [employer] Work Phone: Start: 12-30-2024 Mean corpuscular hem oglobin concentration determination Amy Solorzano [employer] Work Phone: Start: 12-30-2024 Nucleated red blood cell count procedure Amy Solorzano [employer] Work Phone: Start: 12-30-2024 Osmolality measureme nt, serum Amy Solorzano [employer] Work Phone: Start: 12-30-2024 Platelet mean volume determination Amy Solorzano [employer] Work Phone: Start: 12-30-2024 Serum inorganic phos phate measurement Amy Solorzano [employer] Work Phone: Start: 12-30-2024 Triacylglycerol lipa se measurement Amy Solorzano [employer] Work Phone: Start: 12-25-2024 Ultrasonography of abdomen Amy Solorzano [employer] Work Phone: Start: 12-13-2024 Blood count smear mc rscp w/mnl difrntl wbc count Amy Solorzano [employer] Work Phone: Start: 12-13-2024 Mean corpuscular hem oglobin concentration determination Amy Solorzano [employer] Work Phone: Start: 12-13-2024 Nucleated red blood cell count procedure Amy Solorzano [employer] Work Phone: Start: 12-13-2024 Platelet mean volume determination Amy Solorzano [employer] Work Phone: Start: 11-28-2024 Blood count smear mc rscp w/mnl difrntl wbc count Amy Solorzano [employer] Work Phone: Start: 11-28-2024 Estimated creatinine clearance Amy Solorzano [employer] Work Phone: Start: 11-28-2024 Mean corpuscular hem oglobin concentration determination Amy Solorzano [employer] Work Phone: Start: 11-28-2024 Nucleated red blood cell count procedure Amy Solorzano [employer] Work Phone: Start: 11-28-2024 Platelet mean volume determination Amy Solorzano [employer] Work Phone: Start: 11-27-2024 Computed tomography of abdomen and pelvis with contrast Amy Solorzano [employer] Work Phone: Start: 11-26-2024 Plain X-ray abdomen Glendy Solorzano [employer] Work Phone: Start: 11-25-2024 Blood culture Amy Kahn judy [employer] Work Phone: Start: 11-25-2024 Assay of lactate Manjinder Solorzano [employer] Work Phone: Start: 11-25-2024 Computed tomography of abdomen and pelvis with intravenous contrast Amy TINAJERO Work Phone: Start: 11-25-2024 Urine microscopy: red cells Amy Solorzano NP-C Work Phone: Start: 11-25-2024 Urnls dip stick/tabl et reagent auto microscopy Amy Solorzano [employer] Work Phone: Start: 11-25-2024 Plain X-ray abdomen Glendy Solorzano [employer] Work Phone: Start: 11-25-2024 Estimated creatinine clearance Amy Solorzano NP-C Work Phone: Start: 10-17-2024 Blood count smear mc rscp w/mnl difrntl wbc count Amy Solorzano NP-C Work Phone: Start: 10-17-2024 Mean corpuscular hem oglobin concentration determination Amy Solorzano NP- Work Phone: Start: 10-17-2024 Nucleated red blood cell count procedure Amy Solorzano NP-C Work Phone: Start: 10-17-2024 Platelet mean volume determination Amy Solorzano NP- Work Phone: Start: 10-17-2024 Total cholesterol:HD L ratio measurement Amy Solorzano NP-C Work Phone: Start: 10-17-2024 Vitamin D, 25-hydrox y measurement Amy Solorzano NP- Work Phone: Comment on above: Vitamin D [...] Care Physician Start: 05-18-2023 Mycology culture No Kristina [facility] Physician Start: 05-08-2023 Plain X-ray abdomen [facility] Work Phone: Start: 05-07-2023 Incision and drainag e of abscess [facility] Work Phone: Start: 05-04-2023 MRI of lower extremity [facility] Work Phone: Start: 05-04-2023 Incision and drainag e of abscess [facility] Work Phone: Start: 05-04-2023 Anaerobic microbial culture No Primary Care Physician Start: 05-04-2023 Bacteria identified in Blood by Culture No Primary Care Physician Start: 05-04-2023 Fungus stain method No Primary Care Physician Start: 05-04-2023 Investigation of tra nsfusion reaction [facility] Work Phone: Start: 05-04-2023 Microbial culture, routine [facility] Work Phone: Start: 05-04-2023 Mycology culture No [facility] Physician Start: 05-04-2023 [facility] Work Phone: Start: 05-04-2023 X-ray of both feet [facility] Work Phone: Start: 03-06-2023 Computed tomography of abdomen and pelvis with contrast [facility] Work Phone: Start: 03-06-2023 X-ray of both feet [facility] Work Phone: Start: 02-26-2023 Computed tomography of abdomen and pelvis with intravenous contrast [facility] Work Phone: Start: 02-24-2023 Plain X-ray of toe [facility] Work Phone: Start: 02-17-2023 Urinalysis DEWAYNE Birch Comment on above: Result Comment: URIN ALYSIS Performed By: [id number] #### [facility],[address] [place], [place] [id number] Start: 02-08-2023 Computed tomography of abdomen and pelvis with contrast [facility] Work Phone: Start: 01-24-2023 Ecg routine [...] MD Work Phone: Start: 01-17-2023 Urinalysis DEWAYNE Birch Comment on above: Result Comment: URIN ALYSIS Performed By: [id number] #### [facility],[address] [place] [id number] Start: 01-14-2023 Urine culture [facility] Work Phone: Start: 01-14-2023 Computed tomography of abdomen and pelvis with intravenous contrast [facility] Work Phone: Start: 08-12-[address] Patrick Gibbons Work Phone: Start: 08-12-2022 Computed tomography [...] exam ches t 2 views Andres Galaviz APRN.[facility] Work Phone: Acid fast bacilli culture [...] of 2) Zoster Vaccines (1 of 2) [facility] Start: 01-18-2026 Diabetes: Annual GFR (Glomerular Filtration Rate) Diabetes: Annual GFR (Glomerular Filtration Rate) [facility] Start: 01-18-2026 Hypertension/CHF/CAD Annual BMP Blood Test Hypertension/CHF/CAD Annual BMP Blood Test [facility] Start: 01-15-2026 Diabetes: Annual GFR (Glomerular Filtration Rate) Diabetes: Annual GFR (Glomerular Filtration Rate) [facility] Start: 01-15-2026 Hypertension/CHF/CAD Annual BMP Blood Test Hypertension/CHF/CAD Annual BMP Blood Test [facility] Start: 01-14-2026 Diabetes: Annual GFR (Glomerular Filtration Rate) Diabetes: Annual GFR (Glomerular Filtration Rate) [facility] Start: 01-14-2026 Hypertension/CHF/CAD Annual BMP Blood Test Hypertension/CHF/CAD Annual BMP Blood Test [facility] Start: 01-12-2026 Diabetes: Annual GFR (Glomerular Filtration Rate) Diabetes: Annual GFR (Glomerular Filtration Rate) [facility] Start: 01-12-2026 Hypertension/CHF/CAD Annual BMP Blood Test Hypertension/CHF/CAD Annual BMP Blood Test [facility] Start: 03-12-2025 Influenza vaccination Influenza Vaccine (#1) [facility] Start: 01-12-2025 Adolescent depression screening assessment Depression Screening [facility] Start: 01-12-2025 Diabetes: Annual Urine Albumin-Creatinine Ratio (uACR) Diabetes: Annual Urine Albumin-Creatinine Ratio (uACR) [facility] Start: 01-12-2025 Hemoglobin A1c measurement Diabetes: Blood Sugar Control Test (HGBA1C) [facility] Start: 01-12-2025 Hepatitis C screening Hepatitis C Screening [facility] Start: 01-12-2025 HIV screening HIV Screening [facility] Start: 01-12-2025 Lipid panel Cholesterol Screening (Lipid Panel) [facility] Start: 01-12-2025 Social Influencers of Health Screening Social Influencers of Health Screening [facility] Start: 01-08-2025 Patient discharge [facility] Start: 01-08-2025 Care planning and problem solving actions [facility] Start: 01-08-2025 [facility] Start: 01-08-2025 Consultation [facility] Start: 01-07-2025 Following clinical pathway protocol [facility] Start: 01-07-2025 Suicide precautions [facility] Start: 01-07-2025 Care planning and problem solving actions [facility] Start: 01-07-2025 Ambulation without limitation [facility] Start: 01-07-2025 Assessment of risk of venous thromboembolism [facility] Start: 01-07-2025 Insertion of catheter into peripheral vein [facility] Start: 01-07-2025 Measuring intake and output [facility] [place] Start: 01-07-2025 Providing care according to standard [facility] Start: 01-07-2025 [facility] Start: 01-07-2025 Verification routine [facility] Start: 01-07-2025 Admission procedure [facility] Start: 01-07-2025 Hospital admission, emergency, from emergency room, medical nature [facility] Start: 01-07-2025 End: 01-08-2025 [facility] Start: 01-07-2025 Consultation [facility] Start: 01-04-2025 Assay of lactate [facility] Start: 01-04-2025 Assay of lipase [facility] Start: 01-04-2025 Assay of magnesium [facility] Start: 01-04-2025 Assay of osmolality blood [facility] Start: 01-04-2025 ASSAY SPEC XCP UR&BREATH IA [facility] [place] Start: 01-04-2025 Basic metabolic panel calcium total [facility] Start: 01-04-2025 Blood count complete auto&auto difrntl wbc [facility] Start: 01-04-2025 Blood gases any combination ph pco2 po2 co2 hco3 [facility] Start: 01-04-2025 Ct abdomen & pelvis w/contrast material [facility] Start: 01-04-2025 Drug tst prsmv instrmnt chem analyzers pr date [facility] Start: 01-04-2025 Emergency dept visit high severity&threat funcj [facility] Start: 01-04-2025 Gonadotropin chorionic qualitative [facility] Start: 01-04-2025 Hepatic function panel [facility] Start: 01-04-2025 Iv infusion hydration each additional hour [facility] Start: 01-04-2025 Iv infusion therapy/prophylaxis /dx 1st to 1 hr [facility] Start: 01-04-2025 Ketone bodies serum quantitative [facility] Start: 01-04-2025 Therapeutic injection iv push each new drug [facility] Start: 01-04-2025 [facility] Start: 01-02-2025 [facility] Start: 01-01-2025 Patient discharge [facility] Start: 01-01-2025 [facility] Start: 12-31-2024 End: 01-01-2025 [facility] Start: 12-31-2024 Application of intermittent pneumatic compression device [facility] Start: 12-31-2024 End: 12-31-2024 Following clinical pathway protocol [facility] Start: 12-31-2024 Lab findings surveillance [facility] Start: 12-31-2024 Notification of physician [facility] Start: 12-31-2024 Patient education [facility] Start: 12-31-2024 Patient referral to dietitian [facility] Start: 12-31-2024 Vital signs measurements [facility] Start: 12-31-2024 Admission procedure [facility] Start: 12-31-2024 Thyroid stimulating hormone measurement [facility] Start: 12-31-2024 Hospital admission, emergency, from emergency room, medical nature [facility] Start: 12-31-2024 Urine test [facility] Start: 12-31-2024 Following clinical pathway protocol [facility] Start: 12-31-2024 Patient discharge [facility] Start: 12-30-2024 [facility] Start: 12-30-2024 Bacteria identified in Urine by Culture Urine Culture [facility] Start: 12-30-2024 Urine culture [facility] Start: 12-30-2024 Assessment of risk of venous thromboembolism [facility] Start: 12-30-2024 Continuous pulse oximetry [facility] Start: 12-30-2024 End: 12-30-2024 Following clinical pathway protocol [facility] Start: 12-30-2024 Incentive spirometry [facility] Start: 12-30-2024 Insertion of catheter into peripheral vein [facility] Start: 12-30-2024 Lab findings surveillance [facility] Start: 12-30-2024 Measuring intake and output [facility] Start: 12-30-2024 Notification of physician [facility] Start: 12-30-2024 Oxygen therapy [facility] Start: 12-30-2024 Patient education [facility] Start: 12-30-2024 Providing care according to standard [facility] Start: 12-30-2024 Vital signs measurements [facility] Start: 12-30-2024 [facility] Start: 12-30-2024 Verification routine [facility] Start: 12-30-2024 Hospital admission, emergency, from emergency room, medical nature [facility] Start: 12-30-2024 Admission procedure [facility] Start: 12-30-2024 End: 12-31-2024 [facility] Start: 12-30-2024 Osmolality measurement, serum [facility] Start: 12-30-2024 Serum inorganic phosphate measurement [facility] Start: 12-30-2024 Patient referral to dietitian [facility] Start: 11-28-2024 Patient discharge [facility] Start: 11-28-2024 [facility] Start: 11-26-2024 End: 11-27-2024 [facility] Start: 11-26-2024 Inhalation therapy procedure [facility] Start: 11-25-2024 Following clinical pathway protocol [facility] Start: 11-25-2024 Assessment of risk of venous thromboembolism [facility] Start: 11-25-2024 Care regimes management [facility] Start: 11-25-2024 Insertion of catheter into peripheral vein [facility] Start: 11-25-2024 Notification of physician [facility] Start: 11-25-2024 Providing care according to standard [facility] Start: 11-25-2024 Provision of activity privileges [facility] Start: 11-25-2024 Referral to general surgeon [facility] Start: 11-25-2024 Referral to occupational therapist [facility] Start: 11-25-2024 Referral to service [facility] Start: 11-25-2024 End: 11-25-2024 [facility] Start: 11-25-2024 Hospital admission, emergency, from emergency room, medical nature [facility] Start: 11-25-2024 Bacteria identified in Blood by Culture Blood Culture [facility] Start: 11-25-2024 Blood culture Blood Culture [facility] Start: 11-25-2024 Admission procedure [facility] Start: 11-25-2024 Verification routine [facility] Start: 11-25-2024 [facility] Start: 03-12-2024 Covid-19 Vaccine ( season) Covid-19 Vaccine ( season) [facility] Start: 03-12-2024 Influenza vaccination Influenza Vaccine (#1) [facility] Start: 02-24-2024 ANNUAL PCP TEAM CHRONIC DISEASE VISIT ANNUAL PCP TEAM CHRONIC DISEASE VISIT [facility] Start: 01-12-2024 [facility]oglobin [facility]c [facility] Start: 07-23-2023 Amputation foot transmetarsal AMPUTATION THRU METATARSAL [facility] Start: 07-23-2023 Anes open proc bones lower leg/ankle/foot nos ANESTH LOWER LEG BONE SURG [facility] Start: 07-23-2023 Injection aa&/strd sciatic nerve NJX AA&/STRD SCIATIC NRV IMG [facility] Start: 07-23-2023 Musc myocutaneous/fasciocutaneous flap lxtr MUSCLE-SKIN GRAFT LEG [facility] Start: 07-23-2023 Smr prim src gram/giemsa stain bct fungi/cell SMEAR GRAM STAIN [facility] Start: 07-23-2023 [facility] Start: 07-23-2023 Patient discharge [facility] Start: 07-23-2023 X-ray of both feet [facility] Start: 07-23-2023 XR Foot GE 3 Views [facility] Start: 07-12-2023 [facility] Start: 06-28-2023 [facility] Start: 06-27-2023 [facility] Start: 06-27-2023 Blood chemistry [facility] Start: 06-26-2023 [facility] Start: 06-25-2023 [facility] Start: 05-21-2023 Hemoglobin A1c measurement HbA1C [facility] Start: 05-21-2023 Hemoglobin A1c/Hemoglobin.total in Blood HBA1C [facility] Start: 05-18-2023 Anaerobic microbial culture Anaerobic Culture [facility] Start: 05-18-2023 [facility] Start: 05-09-2023 Patient discharge [facility] Start: 05-08-2023 Inhalation therapy procedure [facility] Start: 05-07-2023 [facility] Start: 05-04-2023 [facility] Start: 05-04-2023 Ambulation without limitation [facility] Start: 05-04-2023 Assessment of risk of venous thromboembolism [facility] Start: 05-04-2023 Care regimes management [facility] Start: 05-04-2023 Consultation for treatment [facility] Start: 05-04-2023 Insertion of catheter into peripheral vein [facility] Start: 05-04-2023 Notification of physician [facility] Start: 05-04-2023 Patient referral to dietitian [facility] Start: 05-04-2023 Providing care according to standard [facility] Start: 05-04-2023 [facility] Start: 05-04-2023 Following clinical pathway protocol [facility] Start: 05-04-2023 Incision and drainage of abscess [facility] Start: 05-04-2023 Admission procedure [facility] Start: 05-04-2023 Hospital admission, emergency, from emergency room, medical nature [facility] Start: 05-04-2023 End: 05-04-2023 Blood culture [facility] Start: 05-04-2023 End: 05-04-2023 [facility] Start: 05-04-2023 [facility] Start: 04-15-2023 [facility] Start: 03-12-2023 Covid-19 Vaccine () Covid-19 Vaccine () [facility] Start: 03-12-2023 Influenza vaccination [facility] Start: 01-25-2023 Blood chemistry [facility] Start: 01-25-2023 Computed tomography of abdomen and pelvis with intravenous contrast Abdomen/Pelvis W IV Cont ONLY [facility] Start: 01-25-2023 Electrocardiographic procedure [facility] Start: 01-25-2023 Lipase measurement [facility] Start: 01-25-2023 [facility] Start: 01-19-2023 [facility] Start: 01-18-2023 [facility] Start: 01-17-2023 [facility] Start: 01-16-2023 [facility] Start: 01-15-2023 Patient discharge [facility] Start: 01-14-2023 Referral to service [facility] Start: 01-14-2023 Assessment of risk of venous thromboembolism [facility] Start: 01-14-2023 Care regimes management [facility] Start: 01-14-2023 Insertion of catheter into peripheral vein [facility] Start: 01-14-2023 Measuring intake and output [facility] Start: 01-14-2023 Patient referral to dietitian [facility] Start: 01-14-2023 Providing care according to standard [facility] Start: 01-14-2023 Provision of activity privileges [facility] Start: 01-14-2023 [facility] Start: 01-14-2023 Following clinical pathway protocol [facility] Start: 01-14-2023 Verification routine [facility] Start: 01-14-2023 Admission procedure [facility] Start: 01-12-2023 US Gallbladder [facility] Start: 01-12-2023 US Pelvis transvaginal [facility] Start: 10-08-2022 End: 12-08-2022 Bacteria identified in Wound by Culture ABSCESS AND WOUND CULTURE WITH GRAM STAIN Microbiology Routine Toe infection Expected: 10/08/2022, Expires: 12/08/2022 [facility] Work Phone: Comment on above: Expected: 10/08/2022, Expires: Start: 08-15-2022 Patient discharge [facility] Start: 08-14-2022 Provision of activity privileges [facility] Start: 08-13-2022 End: 08-13-2022 Blood culture [facility] Start: 08-13-2022 [facility] Start: 08-13-2022 Inhalation therapy procedure [facility] Start: 08-12-2022 Following clinical pathway protocol [facility] Start: 08-12-2022 Assessment of risk of venous thromboembolism [facility] Start: 08-12-2022 Care regimes management [facility] Start: 08-12-2022 Insertion of catheter into peripheral vein [facility] Start: 08-12-2022 Measuring intake and output [facility] Start: 08-12-2022 Notification of physician [facility] Start: 08-12-2022 Providing care according to standard [facility] Start: 08-12-2022 Provision of activity privileges [facility] Start: 08-12-2022 [facility] Start: 08-12-2022 Admission procedure [facility] Start: 08-12-2022 [facility] Start: 08-12-2022 Patient referral to dietitian [facility] Start: 07-12-2022 DEPRESSION ASSESSMENT DEPRESSION ASSESSMENT [facility] Start: 06-30-2022 Blood chemistry [facility] Work Phone: Start: 06-29-2022 Patient discharge [facility] Start: 06-29-2022 Blood chemistry [facility] Work Phone: Start: 06-28-2022 Blood chemistry [facility] Work Phone: Start: 06-27-2022 Blood chemistry [facility] Work Phone: Start: 06-26-2022 Wound care [facility] Start: 06-26-2022 Elevation of affected extremity [facility] Start: 06-26-2022 [facility] Start: 06-26-2022 Debridement Debridement Wound (Right) [facility] Work Phone: Start: 06-26-2022 Blood chemistry [facility] Work Phone: Start: 06-25-2022 Referral to service [facility] Start: 06-25-2022 Consultation [facility] Start: 06-24-2022 Assessment of risk of venous thromboembolism [facility] Start: 06-24-2022 Care regimes management [facility] Start: 06-24-2022 Consultation for treatment [facility] Start: 06-24-2022 Insertion of catheter into peripheral vein [facility] Start: 06-24-2022 Providing care according to standard [facility] Start: 06-24-2022 Provision of activity privileges [facility] Start: 06-24-2022 Referral to occupational therapist [facility] Start: 06-24-2022 Referral to information assurance analyst [facility] Start: 06-24-2022 Referral to service [facility] Start: 06-24-2022 [facility] Start: 06-24-2022 Following clinical pathway protocol [facility] Start: 06-24-2022 End: 06-25-2022 [facility] Start: 06-24-2022 Verification routine [facility] Work Phone: Start: 06-24-2022 Admission procedure [facility] Start: 06-24-2022 End: 06-24-2022 Blood culture [facility] Work Phone: Start: 06-24-2022 Patient referral to dietitian [facility] Start: 06-23-2022 Cul bact aerobic addl meths definitive ea isol CULTURE AEROBIC IDENTIFY [facility] Start: 06-23-2022 Cul bact xcpt urine blood/stool aerobic isol CULTURE OTHR SPECIMN AEROBIC [facility] Start: 06-23-2022 Iadna s aureus amplified probe tq STAPH A DNA AMP PROBE [facility] Start: 06-23-2022 Smr prim src gram/giemsa stain bct fungi/cell SMEAR GRAM STAIN [facility] Start: 06-23-2022 [facility] Work Phone: Start: 04-27-2022 Hemoglobin A1c/Hemoglobin.total in Blood HBA1C [facility] Start: 04-09-2022 Patient discharge [facility] Work Phone: Start: 04-07-2022 Consultation [facility] Work Phone: Start: 04-07-2022 End: 04-07-2022 Referral to service [facility] Work Phone: Start: 04-06-2022 Elevation of affected extremity [facility] Work Phone: Start: 04-06-2022 [facility] Work Phone: Start: 04-06-2022 End: 04-06-2022 Following clinical pathway protocol [facility] Work Phone: Start: 04-06-2022 Ambulation without limitation [facility] Work Phone: Start: 04-06-2022 Assessment of risk of venous thromboembolism [facility] Work Phone: Start: 04-06-2022 Care regimes management [facility] Work Phone: Start: 04-06-2022 Consultation for treatment [facility] Work Phone: Start: 04-06-2022 Elevation of affected extremity [facility] Work Phone: Start: 04-06-2022 Insertion of catheter into peripheral vein [facility] Work Phone: Start: 04-06-2022 Notification of physician [facility] Work Phone: Start: 04-06-2022 Patient referral to dietitian [facility] Work Phone: Start: 04-06-2022 Providing care according to standard [facility] Work Phone: Start: 04-06-2022 Referral to information assurance analyst [facility] Work Phone: Start: 04-06-2022 Wound care [facility] Work Phone: Start: 04-06-2022 [facility] Work Phone: Start: 04-06-2022 Verification routine [facility] Work Phone: Start: 04-06-2022 Admission procedure [facility] Work Phone: Start: 04-06-2022 End: 04-07-2022 [facility] Work Phone: Start: 04-06-2022 Patient referral to dietitian [facility] Work Phone: Start: 04-05-2022 Assay of lactate ASSAY OF LACTIC ACID [facility] Work Phone: Start: 04-05-2022 Basic metabolic panel calcium total METABOLIC PANEL TOTAL CA [facility] Work Phone: Start: 04-05-2022 Blood count complete auto&auto difrntl wbc COMPLETE CBC W/AUTO DIFF WBC [facility] Work Phone: Start: 04-05-2022 Culture bacterial blood aerobic w/id isolates BLOOD CULTURE FOR BACTERIA [facility] Work Phone: Start: 04-05-2022 Emergency department visit moderate severity EMERGENCY DEPT VISIT [facility] Work Phone: Start: 04-05-2022 Iv infusion ther proph addl sequential to 1 hr TX/PROPH/DG ADDL SEQ IV INF [facility] Work Phone: Start: 04-05-2022 Iv infusion therapy prophylaxis/dx ea hour [facility] Work Phone: Start: 04-05-2022 Iv infusion therapy/prophylaxis /dx 1st to 1 hr THER/PROPH/DIAG IV INF INIT [facility] Work Phone: Start: 04-05-2022 Radex foot complete minimum 3 views X-RAY EXAM OF FOOT [facility] Work Phone: Start: 04-05-2022 End: 04-05-2022 Blood culture [facility] Work Phone: Start: 03-23-2022 End: 04-06-2022 SARS-CoV-2 (COVID-19) RNA [Presence] in Respiratory specimen by REBECCA with probe detection 2019 CORON[facility]IRUS Microbiology Routine Acute cough Mild intermittent asthmatic bronchitis without complication Expected: 03/23/2022, Expires: 04/06/2022 [facility] Work Phone: Comment on above: Expected: 03/23/2022, Expires: 2 Start: 03-12-2022 Influenza vaccination INFLUENZA (#1) [facility] Start: 01-30-2022 Celiac disease screen [facility] Work Phone: Start: 01-30-2022 Immunoglobulin measurement [facility] Work Phone: Start: 01-30-2022 Serum immunofixation [facility] Work Phone: Start: 01-30-2022 Vitamin B12 measurement [facility] Work Phone: Start: 01-30-2022 [facility] Work Phone: Start: 01-28-2022 HPV TESTING HPV TESTING [facility] Start: 01-28-2022 Screening for malignant neoplasm of cervix [facility] Start: 08-25-2021 COVID-19 VACCINE (2 - Moderna series) COVID-19 VACCINE (2 - Moderna series) [facility] Start: 03-10-2020 3 comp foot exam completed [facility] Start: 03-10-2020 ANNUAL PCP TEAM CHRONIC DISEASE VISIT ANNUAL PCP TEAM CHRONIC DISEASE VISIT [facility] Start: 03-10-2020 Diabetic foot examination Diabetic Foot Exam [facility] Start: 05-03-2018 PAP TESTING PAP TESTING [facility] Start: 05-03-2018 Screening for malignant neoplasm of cervix Pap Testing [facility] Start: 05-03-2016 Screening for malignant neoplasm of cervix Cervical Cancer Screening [facility] Start: 06-07-2014 Hepatitis B surface antibody level LDL CHOLESTEROL [facility] Start: 04-12-2014 Hepatitis B screening URINE ALBUMIN:CREATININE RATIO [facility] Start: 03-31-2014 Glaucoma screening Dilated Retinal Exam [facility] Start: 03-31-2014 Hepatitis C antibody, confirmatory test DILATED RETINAL EXAM [facility] Start: 03-06-2014 PNEUMOCOCCAL (2 - PCV) PNEUMOCOCCAL (2 - PCV) [facility] Start: 03-06-2014 Pneumococcal vaccination [facility] Start: 03-06-2014 Pneumococcal Vaccine: Pediatrics (0 to 5 Years) and At-Risk Patients (6 to 49 Years) (2 of 2 - PCV) Pneumococcal Vaccine: Pediatrics (0 to 5 Years) and At-Risk Patients (6 to 49 Years) (2 of 2 - PCV) [facility] Start: 03-06-2014 Pneumococcal Vaccine: Pediatrics (0 to 5 Years) and At-Risk Patients (6 to 64 Years) (2 - PCV) Pneumococcal Vaccine: Pediatrics (0 to 5 Years) and At-Risk Patients (6 to 64 Years) (2 - PCV) [facility] Start: 03-06-2014 Pneumococcal Vaccine: Pediatrics (0 to 5 Years) and At-Risk Patients (6 to 64 Years) (2 of 2 - PCV) Pneumococcal Vaccine: Pediatrics (0 to 5 Years) and At-Risk Patients (6 to 64 Years) (2 of 2 - PCV) [facility] Start: 01-28-2013 Screening for malignant neoplasm of cervix [facility] Start: 01-28-2011 DTaP,Tdap,and Td Vaccines (1 - Tdap) DTaP,Tdap,and Td Vaccines (1 - Tdap) [facility] Start: 01-28-2011 DTaP/Tdap/Td Vaccines (1 - Tdap) DTaP/Tdap/Td Vaccines (1 - Tdap) [facility] Start: 01-28-2011 HEPATITIS B (1 of 3 - Risk 3-dose series) HEPATITIS B (1 of 3 - Risk 3-dose series) [facility] Start: 01-28-2011 Hepatitis B Vaccine (1 of 3 - 19+ 3-dose series) Hepatitis B Vaccine (1 of 3 - 19+ 3-dose series) [facility] Start: 01-28-2011 Hepatitis B Vaccines (1 of 3 - 19+ 3-dose series) Hepatitis B Vaccines (1 of 3 - 19+ 3-dose series) [facility] Start: 01-28-2011 Urine microalbumin profile [facility] Start: 01-28-2010 HEPATITIS C SCREENING HEPATITIS C SCREENING [facility] Start: 01-28-2010 Hepatitis C screening Hepatitis C Screening [facility] Start: 01-28-2010 HIV SCREENING HIV SCREENING [facility] Start: 01-28-2010 HIV screening HIV Screening [facility] Start: 2004 Adult depression screening assessment DEPRESSION SCREENING [facility] Start: 01-28-2002 Diabetes: Annual Retina Eye Exam Diabetes: Annual Retina Eye Exam [facility] Start: 01-28-2002 Diabetic foot examination [facility] Start: 01-28-2002 Glaucoma screening Diabetes: Retinopathy Screening [facility] Start: 01-28-2002 Preventive dental service Diabetes: Dental Exam [facility] Start: 01-28-1993 MMR Vaccines (1 of 1 - Standard series) MMR Vaccines (1 of 1 - Standard series) [facility] Start: 01-28-1993 Varicella vaccination Varicella Vaccines (1 of 2 - 2-dose childhood series) [facility] Start: 1992 COVID-19 VACCINE (#1) COVID-19 VACCINE (#1) [facility] Start: 1992 Hemoglobin A1c measurement Diabetes: Hemoglobin A1C [facility] Start: 1992 HEPATITIS B (1 of 3 - 3-dose series) HEPATITIS B (1 of 3 - 3-dose series) [facility] Start: 1992 Hepatitis B Vaccine (1 of 3 - 3-dose series) Hepatitis B Vaccine (1 of 3 - 3-dose series) [facility] Start: 1992 Hepatitis B Vaccines (1 of 3 - 3-dose series) Hepatitis B Vaccines (1 of 3 - 3-dose series) [facility] Start: 1992 HIV screening HIV Screening [facility] Start: 1992 Lipid panel Lipid Panel [facility] Acetone [Presence] i n Serum or Plasma [facility] Acid fast bacilli culture [facility] Work Phone: Acid fast bacilli culture [facility] Alanine aminotransfe rase [Enzymatic activity/volume] in Serum or Plasma [facility] Alanine aminotransfe rase [Enzymatic activity/volume] in Serum or Plasma [facility] Alanine aminotransfe rase [Enzymatic activity/volume] in Serum or Plasma [facility] Alanine aminotransfe rase [Enzymatic activity/volume] in Serum or Plasma [facility] Alanine aminotransfe rase [Enzymatic activity/volume] in Serum or Plasma [facility] Albumin [Mass/volume ] in Serum or Plasma [facility] Albumin [Mass/volume ] in Serum or Plasma [facility] Albumin [Mass/volume ] in Serum or Plasma [facility] Albumin [Mass/volume ] in Serum or Plasma [facility] Albumin [Mass/volume ] in Serum or Plasma [facility] Albumin [Moles/volum e] in Serum or Plasma [facility] Work Phone: Albumin/Globulin ratio [facility] Work Phone: Alkaline phosphatase [Enzymatic activity/volume] in Serum or Plasma [facility] Alkaline phosphatase [Enzymatic activity/volume] in Serum or Plasma [facility] Alkaline phosphatase [Enzymatic activity/volume] in Serum or Plasma [facility] Alkaline phosphatase [Enzymatic activity/volume] in Serum or Plasma [facility] Alkaline phosphatase [Enzymatic activity/volume] in Serum or Plasma [facility] Anion gap in Serum or Plasma [facility] Anion gap measurement [facility] Work Phone: Anion gap measurement [facility] Anion gap measurement [facility] Anion gap measurement [facility] Anion gap measurement [facility] Anion gap measurement [facility] Anion gap measurement [facility] Antibody to lupus [place] protein measurement [facility] Work Phone: Antibody to SS-A measurement [facility] Work Phone: Aspartate aminotrans ferase [Enzymatic activity/volume] in Serum or Plasma [facility] Aspartate aminotrans ferase [Enzymatic activity/volume] in Serum or Plasma [facility] Aspartate aminotrans ferase [Enzymatic activity/volume] in Serum or Plasma [facility] Aspartate aminotrans ferase [Enzymatic activity/volume] in Serum or Plasma [facility] Aspartate aminotrans ferase [Enzymatic activity/volume] in Serum or Plasma [facility] Bacteria identified in Blood by Culture Blood Culture [facility] Bacteria identified in Unspecified specimen by Anaerobe culture [facility] Work Phone: Bacteria identified in Unspecified specimen by Anaerobe culture [facility] Bacteria identified in Urine by Culture Urine Culture [facility] Beta hydroxybutyrate [Mass/volume] in Serum or Plasma [facility] Beta hydroxybutyrate [Mass/volume] in Serum or Plasma [facility] Bilirubin measurement, urine [facility] Bilirubin measurement, urine [facility] Bilirubin, total measurement [facility] Bilirubin, total measurement [facility] Bilirubin, total measurement [facility] Bilirubin, total measurement [facility] Bilirubin, total measurement [facility] Bilirubin.direct [Mass/volume] in Serum or Plasma [facility] Blood culture [facility] Work Phone: BUN/Creatinine ratio [facility] Work Phone: BUN/Creatinine ratio [facility] BUN/Creatinine ratio [facility] BUN/Creatinine ratio [facility] BUN/Creatinine ratio [facility] BUN/Creatinine ratio [facility] BUN/Creatinine ratio [facility] BUN/Creatinine ratio [facility] Calcium [Mass/volume ] in Serum or Plasma [facility] Work Phone: Calcium [Mass/volume ] in Serum or Plasma [facility] Calcium [Mass/volume ] in Serum or Plasma [facility] Calcium [Mass/volume ] in Serum or Plasma [facility] Calcium [Mass/volume ] in Serum or Plasma [facility] Calcium [Mass/volume ] in Serum or Plasma [facility] Calcium [Mass/volume ] in Serum or Plasma [facility] Calcium [Mass/volume ] in Serum or Plasma [facility] Carbon dioxide, tota l [Moles/volume] in Central venous blood [facility] Carbon dioxide, tota l [Moles/volume] in Serum or Plasma [facility] Work Phone: Carbon dioxide, tota l [Moles/volume] in Serum or Plasma [facility] Carbon dioxide, tota l [Moles/volume] in Serum or Plasma [facility] Carbon dioxide, tota l [Moles/volume] in Serum or Plasma [facility] Carbon dioxide, tota l [Moles/volume] in Serum or Plasma [facility] Carbon dioxide, tota l [Moles/volume] in Serum or Plasma [facility] Carbon dioxide, tota l [Moles/volume] in Serum or Plasma [facility] CBC W Auto Different ial panel - Blood [facility] Centromere protein B Ab [Units/volume] in Serum [facility] Work Phone: Chloride [Moles/volu me] in Serum or Plasma [facility] Work Phone: Chloride [Moles/volu me] in Serum or Plasma [facility] Chloride [Moles/volu me] in Serum or Plasma [facility] Chloride [Moles/volu me] in Serum or Plasma [facility] Chloride [Moles/volu me] in Serum or Plasma [facility] Chloride [Moles/volu me] in Serum or Plasma [facility] Chloride [Moles/volu me] in Serum or Plasma [facility] Choriogonadotropin.b eta subunit ( test) [Presence] in Serum or Plasma [facility] Chromatin Ab [Units/ volume] in Serum or Plasma [facility] panel - Serum or Plasma [facility] Creatinine [Mass/vol ume] in Serum or Plasma [facility] Creatinine [Moles/vo lume] in Serum or Plasma [facility] Work Phone: Creatinine [Moles/vo lume] in Serum or Plasma [facility] Creatinine [Moles/vo lume] in Serum or Plasma [facility] Creatinine [Moles/vo lume] in Serum or Plasma [facility] Creatinine [Moles/vo lume] in Serum or Plasma [facility] Creatinine [Moles/vo lume] in Serum or Plasma [facility] Creatinine [Moles/vo lume] in Serum or Plasma [facility] DNA double strand Ab [Units/volume] in Serum [facility] Work Phone: Electrophoresis: [id number] [facility] Work Phone: Electrophoresis: gabriella ma globulin [facility] Work Phone: Erythrocyte mean cor puscular volume determination [facility] Erythrocyte sediment ation rate [facility] Globulin measurement [facility] Work Phone: Glucose [Mass/volume ] in Serum or Plasma [facility] Work Phone: Glucose [Mass/volume ] in Serum or Plasma [facility] Glucose [Mass/volume ] in Serum or Plasma [facility] Glucose [Mass/volume ] in Serum or Plasma [facility] Glucose [Mass/volume ] in Serum or Plasma [facility] Glucose [Mass/volume ] in Serum or Plasma [facility] Glucose [Mass/volume ] in Serum or Plasma [facility] Glucose [Mass/volume ] in Serum or Plasma [facility] Hematocrit [Volume F raction] of Blood [facility] Work Phone: Hematocrit [Volume F raction] of Blood [facility] Hematocrit [Volume F raction] of Blood [facility] Hematocrit [Volume F raction] of Blood [facility] Hematocrit [Volume F raction] of Blood [facility] Hematocrit [Volume F raction] of Blood [facility] Hematocrit [Volume F raction] of Blood [facility] Hemoglobin [Mass/vol ume] in Blood [facility] Work Phone: Hemoglobin [Mass/vol ume] in Blood [facility] Hemoglobin [Mass/vol ume] in Blood [facility] Hemoglobin [Mass/vol ume] in Blood [facility] Hemoglobin [Mass/vol ume] in Blood [facility] Hemoglobin [Mass/vol ume] in Blood [facility] Hemoglobin [Mass/vol ume] in Blood [facility] Hemoglobin [Presence ] in Urine [facility] Hemoglobin [Presence ] in Urine [facility] IgA [Mass/volume] in Serum or Plasma [facility] Work Phone: IgE [Units/volume] i n Serum or Plasma [facility] Work Phone: IgG [Mass/volume] in Serum or Plasma [facility] Work Phone: IgM [Mass/volume] in Serum or Plasma [facility] Work Phone: Neva-1 extractable nuc lear Ab [Units/volume] in Serum [facility] Work Phone: Lactic acid measurement [facility] Work Phone: Leukocytes [#/volume ] in Blood [facility] Work Phone: Leukocytes [#/volume ] in Blood [facility] Leukocytes [#/volume ] in Blood [facility] Leukocytes [#/volume ] in Blood [facility] Leukocytes [#/volume ] in Blood [facility] Leukocytes [#/volume ] in Blood [facility] Leukocytes [#/volume ] in Blood [facility] Magnesium measurement [facility] Magnesium measurement [facility] Mean corpuscular hem oglobin concentration determination [facility] Work Phone: Mean corpuscular hem oglobin concentration determination [facility] Mean corpuscular hem oglobin concentration determination [facility] Mean corpuscular hem oglobin concentration determination [facility] Mean corpuscular hem oglobin concentration determination [facility] Mean corpuscular hem oglobin concentration determination [facility] Mean corpuscular hem oglobin concentration determination [facility] Mean corpuscular hem oglobin determination [facility] Work Phone: Mean corpuscular hem oglobin determination [facility] Mean corpuscular hem oglobin determination [facility] Mean corpuscular hem oglobin determination [facility] Mean corpuscular hem oglobin determination [facility] Mean corpuscular hem oglobin determination [facility] Mean corpuscular hem oglobin determination [facility] Measurement of immun oglobulin A in serum specimen [facility] Work Phone: Measurement of keton es in urine using dipstick [facility] Measurement of keton es in urine using dipstick [facility] Measurement of renal function [facility] Work Phone: Measurement of renal function [facility] Measurement of renal function [facility] Measurement of renal function [facility] Measurement of renal function [facility] Measurement of renal function [facility] Measurement of renal function [facility] Measurement of renal function [facility] Microbial culture, routine Wound Culture [facility] Work Phone: Microscopic urinalysis [facility] Work Phone: Microscopic urinalysis [facility] Microscopic urinalysis [facility] Mycobacterium sp marko ntified in Unspecified specimen by Organism specific culture [facility] Work Phone: Mycobacterium sp marko ntified in Unspecified specimen by Organism specific culture [facility] Neutrophil count [facility] Work Phone: Neutrophil count [facility] Neutrophil count [facility] Neutrophil count [facility] Neutrophil count [facility] Neutrophil count [facility] Neutrophil count [facility] Neutrophil cytoplasm ic Ab.classic [Units/volume] in Serum [facility] Work Phone: Neutrophil percent differential count [facility] Work Phone: Neutrophil percent differential count [facility] Neutrophil percent differential count [facility] Neutrophil percent differential count [facility] Neutrophil percent differential count [facility] Neutrophil percent differential count [facility] Neutrophil percent differential count [facility] End: 03-31-2024 NM Stomach Views for gastric emptying solid phase W radionuclide PO NM GASTRIC EMPTYING SOLID Radiology Routine Nausea 1 Occurrences starting 03/02/2023 until 03/31/2024 [facility] Work Phone: Comment on above: 1 Occurrences starting 03/02/2023 until 03/31/2024 Organism count, micr oscopic method [facility] Work Phone: P-ANCA measurement [facility] Work Phone: Patient Education [facility] Work Phone: Patient referral [facility] Work Phone: pH of Urine [facility] pH of Urine [facility] Platelets [#/volume] in Blood [facility] Work Phone: Platelets [#/volume] in Blood [facility] Platelets [#/volume] in Blood [facility] Platelets [#/volume] in Blood [facility] Platelets [#/volume] in Blood [facility] Platelets [#/volume] in Blood [facility] Platelets [#/volume] in Blood [facility] Potassium [Moles/vol ume] in Serum or Plasma [facility] Work Phone: Potassium [Moles/vol ume] in Serum or Plasma [facility] Potassium [Moles/vol ume] in Serum or Plasma [facility] Potassium [Moles/vol ume] in Serum or Plasma [facility] Potassium [Moles/vol ume] in Serum or Plasma [facility] Potassium [Moles/vol ume] in Serum or Plasma [facility] Potassium [Moles/vol ume] in Serum or Plasma [facility] Potassium measurement [facility] Protein electrophore sis panel - Serum or Plasma [facility] Work Phone: Radionuclide gastric emptying study [facility] Red blood cell count [facility] Work Phone: Red blood cell count [facility] Red blood cell count [facility] Red blood cell count [facility] Red blood cell count [facility] Red blood cell count [facility] Red blood cell count [facility] Red cell distributio n width determination [facility] Work Phone: Red cell distributio n width determination [facility] Red cell distributio n width determination [facility] Red cell distributio n width determination [facility] Red cell distributio n width determination [facility] Red cell distributio n width determination [facility] Red cell distributio n width determination [facility] SCL-70 extractable n uclear Ab [Units/volume] in Serum by Immunoassay [facility] Work Phone: Serum chloride measurement [facility] Serum protein electrophoresis [facility] Work Phone: Jang extractable nu clear Ab [Presence] in Serum [facility] Work Phone: Sodium [Moles/volume ] in Serum or Plasma [facility] Work Phone: Sodium [Moles/volume ] in Serum or Plasma [facility] Sodium [Moles/volume ] in Serum or Plasma [facility] Sodium [Moles/volume ] in Serum or Plasma [facility] Sodium [Moles/volume ] in Serum or Plasma [facility] Sodium [Moles/volume ] in Serum or Plasma [facility] Sodium [Moles/volume ] in Serum or Plasma [facility] Sodium measurement [facility] Specific gravity of Urine [facility] Specific gravity of Urine [facility] Tissue transglutamin ase IgA Ab [Units/volume] in Serum [facility] Work Phone: Total protein measurement [facility] Total protein measurement [facility] Total protein measurement [facility] Total protein measurement [facility] Total protein measurement [facility] Urea nitrogen [Mass/ volume] in Serum or Plasma [facility] Work Phone: Urea nitrogen [Mass/ volume] in Serum or Plasma [facility] Urea nitrogen [Mass/ volume] in Serum or Plasma [facility] Urea nitrogen [Mass/ volume] in Serum or Plasma [facility] Urea nitrogen [Mass/ volume] in Serum or Plasma [facility] Urea nitrogen [Mass/ volume] in Serum or Plasma [facility] Urea nitrogen [Mass/ volume] in Serum or Plasma [facility] Urea nitrogen [Mass/ volume] in Serum or Plasma [facility] Urinalysis, blood, qualitative [facility] Work Phone: Urinalysis, blood, qualitative [facility] Urinalysis, blood, qualitative [facility] Urine dipstick for glucose [facility] Urine dipstick for glucose [facility] Urine dipstick for l eukocyte esterase [facility] Urine dipstick for l eukocyte esterase [facility] Urine dipstick for nitrite [facility] Urine dipstick for nitrite [facility] Urine dipstick for protein [facility] Urine dipstick for protein [facility] Urine examination [facility] Urine examination [facility] Urine microscopy: ep ithelial cells [facility] Work Phone: Urine microscopy: ep ithelial cells [facility] Urine Microscopy: white cells [facility] Urine Microscopy: white cells [facility] Urobilinogen [Presen ce] in Urine [facility] Urobilinogen [Presen ce] in Urine [facility] Vancomycin [Mass/vol ume] in Serum or Plasma --trough [facility] Work Phone: White blood cell count [facility] Work Phone: [facility] Immunizations Immunization Date Immunization Notes Care Provider Gabi samson 06-30-2021 Covid (Moderna) [facility] Work Phone: [facility] 04-13-2013 influenza virus vacc ine, unspecified formulation Alyssa Yeni [employer] 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[employer]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 Work Phone: [facility] 03-06-2013 pneumococcal polysaccharide vaccine, 23 valent Alyssa Jaime [employer] WORKER.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 Work Phone: [facility] Work Phone: 02-19-2005 measles, mumps and rubella virus vaccine Amy Rashad [employer] Work Phone: [facility] 02-14-1996 diphtheria, tetanus toxoids and acellular pertussis vaccine Amy Rashad [employer] Work Phone: [facility] 02-14-1996 trivalent poliovirus vaccine, live, oral Amy Rashad [employer] Work Phone: [facility] 05-27-1993 haemophilus influenz ae type b vaccine, PRP-T conjugate Amy Rashad [employer] Work Phone: [facility] 05-27-1993 measles, mumps and rubella virus vaccine Amy Rashad [employer] Work Phone: [facility] 03-10-1993 diphtheria, tetanus toxoids and acellular pertussis vaccine Amy Rashad [employer] Work Phone: [facility] 1992 trivalent poliovirus vaccine, live, oral May Rashad [employer] Work Phone: [facility] 1992 diphtheria, tetanus toxoids and acellular pertussis vaccine Amy Rashad [employer] Work Phone: [facility] 1992 haemophilus influenz ae type b vaccine, PRP-T conjugate Amy Rashad [employer] Work Phone: [facility] 1992 diphtheria, tetanus toxoids and acellular pertussis vaccine Amy Rashad [employer] Work Phone: [facility] 1992 haemophilus influenz ae type b vaccine, PRP-T conjugate Amy Rashad [employer] Work Phone: [facility] 1992 trivalent poliovirus vaccine, live, oral Amy Rashad [employer] Work Phone: [facility] Payers Date Payer Category Payer Self-pay [id number] 2021 Medicaid [facility] [place] [id number] 2021-Present [phone] [address] [address] [place] [address] Medicaid [id number] 2021 Medicaid [id number] 2021 Medicaid (Managed Care) [facility] [id number] 2021 Medicaid [id number] 1992 Unknown [id number] 2..840.1.857709.3.579.2. 651 1992 Unknown [id number] 2.16840.1.646626.3.579.2. 651 1992 Unknown [id number] 2.16840.1.645575.3.579.2. 627 1992 Unknown [id number] 2.16840.1.840772.3.579.2. 627 1992 Unknown [id number] 2.16.840.1.072561.3.579.2. 1143 1992 Unknown [id number] 2.840.1.247877.3.579.2. 1143 1992 Unknown [id number] 2.840.1.037631.3.579.2. 1143 1992 Unknown [id number] 2.840.1.757452.3.579.2. 1143 Unknown [id number] 2.840.1.538412.3.579.2. 462 Unknown [id number] 2.840.1.749909.3.579.2. 462 Unknown [id number] 2.840.1.937789.3.579.2. 462 Unknown [id number] 2.840.1.780622.3.579.2. 462 Unknown [id number] 2.840.1.168416.3.579.2. 462 Unknown [id number] 2.840.1.448030.3.579.2. 462 Unknown [id number] 2.840.1.760139.3.579.2. 462 Unknown [id number] 2.840.1.237033.3.579.2. 462 Unknown [id number] 2.840.1.090233.3.579.2. 462 Unknown [id number] 2.840.1.936117.3.579.2. 462 Unknown [id number] .840.1.049621.3.579.2. 462 Unknown [id number] .840.1.202395.3.579.2. 462 Unknown [id number] 2.840.1.533021.3.579.2. 462 Unknown [id number] 2.840.1.144224.3.579.2. 462 Unknown [id number] 2.840.1.995005.3.579.2. 462 Unknown [id number] 2.16.840.1.945172.3.579.2. 462 Unknown [id number] 2.16.840.1.847712.3.579.2. 462 Unknown [id number] 2.16.840.1.706030.3.579.2. 462 Unknown [id number] 2.16.840.1.846838.3.579.2. 462 Unknown [id number] 2.16.840.1.556379.3.579.2. 462 Unknown [id number] 2.16.840.1.606600.3.579.2. 462 Unknown [id number] 2.16.840.1.835915.3.579.2. 462 Unknown [id number] 2.16.840.1.835149.3.579.2. 462 Unknown [id number] 2.16.840.1.156364.3.579.2. 462 Unknown [id number] 2.16.840.1.453656.3.579.2. 462 Unknown [id number] 2.16.840.1.370389.3.579.2. 462 Unknown [id number] 2.16.840.1.040996.3.579.2. 462 Unknown [id number] 2.16.840.1.084684.3.579.2. 462 Unknown [id number] 2.16.840.1.965767.3.579.2. 462 Social History Date Type Detail Facility [facility] Work Phone: Start: 10-24-2021 End: 06-27-2023 Tobacco smoking status WVIS Unknown if ever smoked [facility] Start: 1990 Sex Assigned At Female [facility] Start: 03-03-2013 End: 11-25-2024 Tobacco smoking status NHIS Smokes tobacco daily [facility] Work Phone: History of tobacco use Cigarette Smoker [facility] Start: 05-15-2021 End: 02-02-2022 Alcohol intake Current drinker of alcohol (finding) [facility] Start: 05-03-2013 History SDOH Alcohol Comment Seldom [facility] Start: 1990 Sex Assigned At Not on file [facility] Start: 04-15-2021 End: 01-24-2023 Exposure to SARS-CoV-2 (event) Not sure [facility] Work Phone: Start: 03-03-2013 End: 02-10-2023 Cigarettes smoked current (pack per day) - Reported 0.5 [facility] Start: 03-03-2013 End: 01-14-2025 Tobacco use and exposure Smokeless tobacco non-user [facility] Start: 01-10-2023 Tobacco smoking status Smoker (findi ng) [facility] Start: 01-24-2023 End: 02-10-2023 Alcohol Use Disorder Identification Test - Consumption [AUDIT-C] [facility] How often to you hav e a drink containing alcohol? Monthly or less [facility] How many standard dr inks containing alcohol do you have on a typical day? 1 or 2 [facility] How often do you hav e 6 or more drinks on 1 occasion? Less than monthly [facility] Start: 01-24-2023 [facility] (1-10 0), lower number is lower risk 92 [facility] Work Phone: Start: 02-19-2023 End: 01-18-2025 Alcohol intake Ex-drinker (finding) [facility] Start: 02-18-2023 Alcohol Comment rare [facility] (I/We) worried tunde (my/our) food would run out before (I/we) got money to buy more. Never true [facility] Work Phone: In the past 12 month s, was there a time when you were not able to pay the mortgage or rent on time? No [facility] Work Phone: Start: 10-19-2024 End: 01-12-2025 Sex Female (finding) [facility] Start: 12-30-2024 End: 01-08-2025 Tobacco smoking status NHIS Ex-smoker (finding) [facility] Start: 01-14-2025 [facility] [employer] NEGATED: Highlighted row [facility] NEGATED: Highlighted row Not [facility] Medical Equipment Procedure Code Equipment Code Equipment Origin al Text Equipment Identifier Dates Repair, tendon, Achilles BIOSKIN, 2 X 4 FDA Start: 12-24-2023 Repair, tendon, Achilles FIBERTAPE FDA Start: 12-24-2023 Repair, tendon, Achilles SUTURETAPE,FIBER LOOP FDA Start: 12-24-2023 Repair, tendon, Achilles Aria Citrefix Xpress System FDA Start: 12-24-2023 Repair, tendon, Achilles Norton Citrefix Xpress System FDA Start: 12-24-2023 Repair, tendon, Achilles VIAFLOW, 1CC FDA Start: 12-24-2023 Repair, tendon, Achilles Guevara Graft Jacket Now Standard FDA Start: 12-24-2023 Repair, tendon, Achilles [id number] FDA Start: 12-24-2023 Repair, tendon, Achilles [...] LOOP FDA Start: 12-24-2023 Repair, tendon, Achilles Norton [employer] Xpress System FDA Start: 12-24-2023 Repair, tendon, Achilles Norton [employer] Xpress System FDA Start: 12-24-2023 Repair, tendon, Achilles VIAFLOW, 1CC FDA Start: 12-24-2023 Repair, tendon, Achilles Guevara Graft Jacket Now Standard FDA Start: 12-24-2023 Repair, tendon, Achilles BIOSKIN, 2 X 4 FDA Start: 12-24-2023 Repair, tendon, Achilles FIBERTAPE FDA Start: 12-24-2023 Repair, tendon, Achilles SUTURETAPE,FIBER LOOP FDA Start: 12-24-2023 Repair, tendon, Achilles Norton [employer] Xpress System FDA Start: 12-24-2023 Repair, tendon, Achilles Norton [employer] Xpress System FDA Start: 12-24-2023 Repair, tendon, Achilles VIAFLOW, 1CC FDA Start: 12-24-2023 Repair, tendon, Achilles Guevara Graft Jacket Now Standard FDA Start: 12-24-2023 Repair, tendon, Achilles BIOSKIN, 2 X 4 FDA Start: 12-24-2023 Repair, tendon, Achilles FIBERTAPE FDA Start: 12-24-2023 Repair, tendon, Achilles SUTURETAPE,FIBER LOOP FDA Start: 12-24-2023 Repair, tendon, Achilles Aria [employer] Xpress System FDA Start: 12-24-2023 Repair, tendon, Achilles Norton [employer] Xpress System FDA Start: 12-24-2023 Repair, tendon, Achilles VIAFLOW, 1CC FDA Start: 12-24-2023 Repair, tendon, Achilles Guevara Graft Jacket Now Standard FDA Start: 12-24-2023 Repair, tendon, Achilles BIOSKIN, 2 X 4 FDA Start: 12-24-2023 Repair, tendon, Achilles FIBERTAPE FDA Start: 12-24-2023 Repair, tendon, Achilles SUTURETAPE,FIBER LOOP FDA Start: 12-24-2023 Repair, tendon, Achilles Aria [employer] Xpress System FDA Start: 12-24-2023 Repair, tendon, Achilles Norton [employer] Xpress System FDA Start: 12-24-2023 Repair, tendon, Achilles VIAFLOW, 1CC FDA Start: 12-24-2023 Repair, tendon, Achilles Guevara Graft Jacket Now Standard FDA Start: 12-24-2023 Repair, tendon, Achilles BIOSKIN, 2 X 4 FDA Start: 12-24-2023 Repair, tendon, Achilles FIBERTAPE FDA Start: 12-24-2023 Repair, tendon, Achilles SUTURETAPE,FIBER LOOP FDA Start: 12-24-2023 Repair, tendon, Achilles Norton Citrefix Xpress System FDA Start: 12-24-2023 Repair, tendon, Achilles Norton Citrefix Xpress System FDA Start: 12-24-2023 Repair, tendon, Achilles VIAFLOW, 1CC FDA Start: 12-24-2023 Repair, tendon, Achilles Guevara Graft Jacket Now Standard FDA Start: 12-24-2023 Repair, tendon, Achilles BIOSKIN, 2 X 4 FDA Start: 12-24-2023 Repair, tendon, Achilles FIBERTAPE FDA Start: 12-24-2023 Repair, tendon, Achilles SUTURETAPE,FIBER LOOP FDA Start: 12-24-2023 Repair, tendon, Achilles Norton Citrefix Xpress System FDA Start: 12-24-2023 Repair, tendon, Achilles Aria Citrefix Xpress System FDA Start: 12-24-2023 Repair, tendon, Achilles VIAFLOW, 1CC FDA Start: 12-24-2023 Repair, tendon, Achilles Guevara Graft Jacket Now Standard FDA Start: 12-24-2023 Repair, tendon, Achilles BIOSKIN, 2 X 4 FDA Start: 12-24-2023 Repair, tendon, Achilles FIBERTAPE FDA Start: 12-24-2023 Repair, tendon, Achilles SUTURETAPE,FIBER LOOP FDA Start: 12-24-2023 Repair, tendon, Achilles Norton Citrefix Xpress System FDA Start: 12-24-2023 Repair, [...] FDA Start: 07-23-2023 Incision and drainage, abscess [id number] FDA Start: 07-23-2023 Incision and drainage, abscess [...] Incision and drainage, abscess FDA Start: 07-23-2023 [id number], [id number] Start: 11-27-2013 End: 02-18-2023 Comment on above: Test blood sugar(s) 1 times daily. Dx: 250.02. Insulin: No Test blood sugar(s) 1 daily. Dx: 250.02. Insulin: No Goals Date Patient Goal Desired Activity /State Functional Status Date Assessment Result Facility 01-08-2025 Functional status Bedside [facility] Work Phone: 01-01-2025 Functional status Ambulates;Up ad nella [facility] Work Phone: 12-31-2024 Functional status [facility]: 11-28-2024 Functional status Ambulates;Up ad nella [facility] Work Phone: 05-09-2023 Functional status Ambulates;Up ad nella [facility] Work Phone: 02-11-2023 Functional Status Sequential Com pression Device bilateral knee high removed/off [facility] 02-11-2023 Functional Status Driving, 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, 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, Laundry, Meal preparation, Personal ADL, Shopping [facility] 02-11-2023 Functional Status Identified as high risk, Fall ID band on, Door open, Room check performed [facility] 02-11-2023 Functional Status [facility] 02-11-2023 [facility] 02-11-2023 Functional Status Patient refused [facility] 02-10-2023 [facility] 01-15-2023 Functional status Up ad nella [facility] Work Phone: 01-10-2023 Functional Status [facility] 01-10-2023 Functional Status Standard Safet y Call device within reach, Bed in low position, Wheels locked, Safety level maintained [facility] 08-15-2022 Functional status Ambulates [facility] Work Phone: 06-29-2022 Functional status Ambulates;[facility] d [facility]: 06-25-2022 Functional status Ambulates;Up a d nella;Bathroom Privilege [facility] Work Phone: 04-09-2022 Functional status Bedside Commode [facility] Work Phone: Mental Status Date Assessment Result Facility 01-08-2025 Cognitive function Voice/Name [facility] Work Phone: 01-07-2025 Cognitive function Awake;Alert;Appropriat e [facility] Work Phone: 01-01-2025 Cognitive function Voice/Name [facility] Work Phone: 12-31-2024 Cognitive function Voice/Name [facility] Work Phone: 11-28-2024 Cognitive function Voice/Name [facility] Work Phone: 07-23-2023 Cognitive function Voice/Name [facility] Work Phone: 05-08-2023 Cognitive function Voice/Name [facility] Work Phone: 02-11-2023 Mental Status Oriented x 4 [facility] 02-11-2023 Mental Status [facility] 02-10-2023 Mental Status [facility] 01-14-2023 Cognitive function Appropriate;Cooperativ e [facility] Work Phone: 01-10-2023 Mental Status Orientation Oriented x 4 [facility] 08-15-2022 Cognitive function Voice/Name [facility] Work Phone: 08-12-2022 Cognitive function Level Of Cons ciousness Awake;Alert;Appropriate [facility] Work Phone: 06-29-2022 Cognitive function Voice/Name [facility] Work Phone: 06-25-2022 Cognitive function Voice/Name [facility] Work Phone: 04-09-2022 Cognitive function Voice/Name [facility] Work Phone: Clinical Notes 10-18-2013 to 01-18-2025 Deena Yadav RN - 01/18/2025 10:27 AM Alex Yoder RN - 01/18/2025 6:56 AM Alex Yoder RN - 01/18/2025 6:54 AM Sam Paul RN - 01/18/2025 5:50 AM EDTDischarge InstructionsAttachments Note Date & Type Note Facility 01-18-2025 History of Presen t illness Narrative Images from the original note were not included. [place] [facility] Psychiatric Transportation Request Of Note: For the safety of the patient and EMS crews the patient must remain in the purple psychiatric gown. Patient belongings must be kept away from the patient at all times. A PCS and or CMN will need to be provided before the transportation to the EMS Crews. Psychiatric Transports Only Ambulance Requesting Staff Member Call Back Number: [phone] [facility]/BP-[facility]ALL Requested Telephone Solicitor Supervisor Date & Time: DAVID Attending Provider: Rickey Dumont MD Patient Name: First Chon Sinha Heather : 1990 Patient Weight: 104 kg (230 lb) [address] [facility] [place] [address] Primary Insurance: Payor: [employer] MEDICAID / Plan: [employer] [facility] MEDICAID / Product Type: *No Product type* / [place] Slipped: PINK SLIPPED Psychiatric Diagnosis: sucidal Reason For Visit Chief Complaint Patient presents with Abdominal Pain Past Medical History: has a past medical history of Diabetes mellitus ([facility] V24, [facility] V28). Length of Stay: Less than 12 hours Is the Patient Combative or Discussed Elopement? No Has the patient required Physical or Chemical restraints? No Will the patient require restraints during transport? No Other Important Information: [facility] Shift & Environmental Safety Checklist Assessment and vital signs documented at least every 8 hours including temperature and pain. yes Medications reviewed. Scheduled medication(s) verified as being on the unit and stored in a secured location. yes Behavior: Cooperative Suicidal Risk Score: CSSR Scale (Adult) - High Risk Falls Risk Scored: yes Patient in [facility] gown. yes Auto Research Engineer: fuel house attendant at bedside Visitor alert sign posted. No Meal delivered to patient. N/A Room checked for the following safety items. yes Patient belongings removed. IV drawers locked, if present. Phone removed. Closest - no poles, drawers, shelves, or hangers, if present. Windows - locked, if present. Restrooms - No clothes, cans, razors, non-essential equipment, if present. Room - Removal of all non-essential equipment, cords, gait belts, and plastic bags including trash bags. Patient/ family/ guardian education form. Yes Guardian: Self Guardian Contact Phone Number: not applicable Ensure psych consult has been placed and assist with facilitation of provider rounding. Yes [place] Slip/Involuntary Hold Completed: yes Planned Disposition: Awaiting Disposition Aletha Yoder RN 01/18/25 0658 [facility] Behavioral [facility] Initial Patient Checklist faculty criminal justice notified of incoming psych patient. yes Unsafe items removed from room and IV drawer/cart locked. Yes Patient observed by 2 staff members while disrobing. Patient placed in [facility] gown and given hospital socks. yes Primary RN to request security presence for wanding. yes faculty criminal justice to witness wanding and verify safe patient space. yes Belonging list completed. ALL belongings. NO EXCEPTIONS. Labeled and placed in [place]: Psych cabinet. Patient's medications locked in security. [place] slip/involuntary hold paperwork filled out, signed by MD/ and scanned into chart. Yes Suicide risk score completed and icon visible on ED Track Board.yes faculty criminal justice assigned a patient safety specialist until one is provided by staffing. yes Patient safety specialist Observation Justification Form completed.Yes Complete bedside report with patient safety specialist. yes Patient safety specialist documenting on Observation Monitoring Record. yes Medication reconciliation completed. Yes ED Psych Hold orders placed by MD/DO, including home meds, diet, nicotine needs and comfort. yes Request hospital bed for patient. RN educates patient on evaluation process. N/A Aletha Swert, RN 01/18/25 0656 Transport states pt here for abd pain from [facility]. Pt arrives with copy of pink slip. Pt recently dx with pancreatitis ED Note HPI CC: Chief Complaint Patient presents with Abdominal Pain HPI: Ghislaine Givens is a 34 y.o. female history of diabetes, depression who presents for evaluation of abdominal pain. Patient states has been experiencing abdominal pain every day for a month. Localizes pain around the umbilicus. Worse today. Associated nausea vomiting. Denies fever shaking chills. No chest pain or shortness of breath. Patient currently in a [facility] health center, transferred to our facility for evaluation of the abdominal pain. Patient had CT scan of the abdomen pelvis January 14, ultrasound right upper quadrant January 12, both unremarkable. Past History: Past Medical History: Diagnosis Date Diabetes mellitus ([facility] V24, [facility] V28) History reviewed. No pertinent surgical history. Social History Tobacco Use Smoking status: Never Smokeless tobacco: Never Substance Use Topics Alcohol use: Not Currently Drug use: Not Currently No family history on file. No Known Allergies Current Outpatient Medications Medication Instructions aluminum-magnesium hydroxide 200-200 mg/5 mL suspension 15 mL, oral, Every 6 hours PRN dicyclomine (BENTYL) 20 mg, oral, 2 times daily ibuprofen (ADVIL,MOTRIN) 600 mg, oral, Every 6 hours PRN ondansetron ODT (ZOFRAN-ODT) 4 mg, translingual, Every 8 hours PRN pantoprazole (PROTONIX) 40 mg, oral, Every morning before breakfast, Do not crush, chew, or split. Physical Exam: Patient Vitals for the past 24 hrs: BP Temp Temp src Pulse Resp SpO2 Height Weight 01/18/25 0557 (!) 159/93 36.6 C (97.8 F) Oral 81 22 99 % 1.676 m (66) 104 kg (230 lb) CONSTITUTIONAL: Afebrile EYES: No conjunctival injection, no icterus. HENT: External ears normal, external nose normal. RESPIRATORY: Normal chest excursion with respiration, no stridor. Clear CARDIOVASCULAR: No cyanosis, regular rate rhythm no murmurs NEUROLOGICAL: Awake, alert. PSYCHOLOGICAL: The patient's mood and manner are appropriate. INTEGUMENTARY: Warm and dry. No rash noted. GI: Generalized abdominal tenderness without guarding or rebound MDM: Differential Diagnosis Considered - : Yes, the differential associated with the patient's presentation includes cannabinoid hyperemesis, gastroparesis, chronic abdominal pain, dehydration, metabolic derangement. Patient's laboratory testing was unremarkable, lipase normal. test was negative. Chemistry normal. Urinalysis unremarkable Patient was given IV fluids antiemetics with improvement, plan for discharge, outpatient primary care follow-up. No orders to display Clinical Impressions as of 01/18/25 1250 Generalized abdominal pain Nausea Labs Reviewed BASIC METABOLIC PANEL - Abnormal Result Value Sodium 134 (*) Potassium 4.1 Chloride 99 CO2 22 Anion Gap 13 Glucose 218 (*) BUN 22 (*) Creatinine 0.91 eGFR 86 BUN/Creatinine Ratio 24.2 (*) Calcium 9.1 HEPATIC FUNCTION PANEL - Abnormal Total Protein 7.4 Albumin 4.3 Total Bilirubin 0.6 Bilirubin, Direct 0.1 Bilirubin, Indirect 0.5 ALT (SGPT) 13 AST (SGOT) 12 (*) Alkaline Phosphatase 72 CBC WITH AUTO DIFFERENTIAL - Abnormal WBC 10.7 (*) RBC 4.46 Hemoglobin 12.3 Hematocrit 36.9 MCV 82.7 MCH 27.6 MCHC 33.3 RDW 14.2 Platelets 393 MPV 9.4 Neutrophils Relative 71.6 Lymphocytes Relative 20.2 Monocytes Relative 6.6 Eosinophils Relative 0.2 Basophils Relative 0.6 Immature Granulocytes Relative 0.8 Neutrophils Absolute 7.68 Lymphocytes Absolute 2.17 Monocytes Absolute 0.71 Eosinophils Absolute 0.02 Basophils Absolute 0.06 Immature Granulocytes Absolute 0.09 URINALYSIS WITH REFLEX MICROSCOPIC - Abnormal Color, Urine Light Yellow (*) Clarity, Urine Clear Specific [place] Urine 1.022 pH, Urine 6.5 Leukocytes, Urine Negative Nitrite, Urine Negative Protein, Urine Negative Glucose, Urine 100 (*) Ketones, Urine Negative Urobilinogen, Urine Normal Blood, Urine Negative Bilirubin, Urine Negative RBC, Urine 1 WBC, Urine 2 Squamous Epithelial, Urine Occasional (*) Mucus, UA Rare (*) LIPASE - Normal Lipase 41 HCG QUALITATIVE, URINE - Normal Preg Test, Ur Negative CBC AND DIFFERENTIAL Narrative: The following orders were created for panel order CBC and differential. Procedure Abnormality Status --------- ------ CBC auto differential[[id number]] Abnormal Final result Please view results for these tests on the individual orders. URINALYSIS WITH REFLEX MICROSCOPIC Narrative: The following orders were created for panel order Urinalysis with reflex microscopic. Procedure Abnormality Status --------- ------ Urinalysis with reflex ...[[id number]] Abnormal Final result Al[place]o urine culture tube[[id number]] Final result Yellow urine no additive[[id number]] Please view results for these tests on the individual orders. Medications sodium chloride 0.9 % bolus 1,000 mL (0 mL intravenous Stopped 01/18/25 1102) HYDROmorphone (DILAUDID) injection 1 mg (1 mg intravenous Given 01/18/25 0630) haloperidol lactate (HALDOL) injection 2.5 mg (2.5 mg intravenous Given 01/18/25 0633) This is a social determinant of rod that is incorporated in medical decision making as it complicates treatment and discharge plans Social Influencers of Health Food Risk: Not on file Transportation: Not on file Housing Instability: Not on file Food Access & Nutrition: Not on file Access to Healthcare: Not on file Health Literacy: Not on file Financial Risk: Not on file Social Isolation: Not on file External record review: PDMP Reviewed by: on IMPRESSION: 1. Generalized abdominal pain 2. Nausea DISPOSITION: Discharged ED Prescriptions Medication Sig Dispense Start Date End Date Auth. Provider pantoprazole (PROTONIX) 40 mg EC tablet Take 1 tablet (40 mg total) by mouth 1 (one) time each day before breakfast for 14 days. Do not crush, chew, or split. 14 each 01/18/2025 02/01/2025 MD Rickey Pitts MD 01/18/25 0630 Rickey Dumont MD 01/18/25 1250 documented in this encounter [facility] 01-18-2025 Emergency departm ent Note Bed: BP-MARSHALL Expected date: Expected time: Means of arrival: Comments: [facility] 01-18-2025 Miscellaneous Notes Formattin g of this note might be different from the original. Bed: BP-MARSHALL Expected date: Expected time: Means of arrival: Comments: [facility] documented in this encounter [facility] 01-15-2025 Hospital Discharg e instructions Mayra Jerome MD - 01/15/2025 6:20 PM EDT You were seen in the Emergency Department today for your abdominal pain that you report has been happening intermittently for 3 years. You received blood tests, which did not show concerning findings today. It was thought that you might be having pancreatitis, however your lipase level is completely normal today. Your CT scan and your ultrasound from your previous visits did not show abnormal findings. You should follow-up with your primary care doctor after you leave the psychiatric hospital. This is important. You should return to the nearest ED immediately if you begin to experience uncontrolled vomiting, fainting, or any new or worsening symptoms. The [place] [facility] is open 24 hours a day. The following attachments cannot be sent through Care Everywhere.Abdominal Pain ([place]izen [place])documented in this encounter [facility] 01-15-2025 History of Presen t illness Narrative Images from the original note were not included. . [place] [facility] Psychiatric Transportation Request Of Note: For the safety of the patient and EMS crews the patient must remain in the purple psychiatric gown. Patient belongings must be kept away from the patient at all times. A PCS and or CMN will need to be provided before the transportation to the EMS Crews. Psychiatric Transports Only Ambulance Requesting Staff Member Call Back Number: [phone] [facility] BP-[facility]SHALL/BP-MARSHALL Requested Telephone Solicitor Supervisor Date & Time: Will call for today - 01/15/25 Attending Provider: Mayra Jerome MD Patient Name: First Chon Sinha Heather : 1990 Patient Weight: 104 kg (230 lb) Destination Name: [address] , [place] [address] Primary Insurance: Payor: [employer] MEDICAID / Plan: [employer] [facility] MEDICAID / Product Type: *No Product type* / [place] Slipped: PINK SLIPPED Psychiatric Diagnosis: SA Reason For Visit Chief Complaint Patient presents with Abdominal Pain Pt arrived from [facility] for abdominal pain; hx: pancreatitis; pt was recently sd'ed for abdominal pain; alert and oriented x 4; GCS: 15 Past Medical History: has a past medical history of Diabetes mellitus (CMS/HCC V24, CMS/HCC V28). Length of Stay: Less than 12 hours Is the Patient Combative or Discussed Elopement? No Has the patient required Physical or Chemical restraints? No Will the patient require restraints during transport? No Other Important Information: Room at [facility] is [address]A on [address] Pt sent from [facility] for [facility] placement for medical clearance for abdominal pain. Pt is on unit 300- room 310A and nursing report number for coordination of care and nursing report at d/c is [phone]. Pt's stretcher transport on will call for today, back to IP at [facility] where she was sent from under pink slip for SA. Pt's transport on Will call for when pt is discharged and ready for stretcher. Transport packet on pt chart by desk. [facility] Shift & Environmental Safety Checklist Assessment and vital signs documented at least every 8 hours including temperature and pain. yes Medications reviewed. Scheduled medication(s) verified as being on the unit and stored in a secured location. yes Behavior: Cooperative Suicidal Risk Score: CSSR Scale (Adult) - Low Risk Falls Risk Scored: no Patient in [facility] gown. yes Auto Research Engineer: 1:1 safety specialist at bedside Visitor alert sign posted. Yes Meal delivered to patient. N/A Room checked for the following safety items. yes Patient belongings removed. IV drawers locked, if present. Phone removed. Closest - no poles, drawers, shelves, or hangers, if present. Windows - locked, if present. Restrooms - No clothes, cans, razors, non-essential equipment, if present. Room - Removal of all non-essential equipment, cords, gait belts, and plastic bags including trash bags. Patient/ family/ guardian education form. N/A Guardian: Self Guardian Contact Phone Number: not applicable Ensure psych consult has been placed and assist with facilitation of provider rounding. Yes [place] Slip/Involuntary Hold Completed: yes Planned Disposition: Transfer to [facility] Lolis Avelar RN 01/15/25 3119 [facility] Behavioral Health Initial Patient Checklist faculty criminal justice notified of incoming psych patient. yes Unsafe items removed from room and IV drawer/cart locked. Yes Patient observed by 2 staff members while disrobing. Patient placed in [facility] gown and given hospital socks. yes Primary RN to request security presence for wanding. no faculty criminal justice to witness wanding and verify safe patient space. no Belonging list completed. ALL belongings. NO EXCEPTIONS. Labeled and placed in MCCE: Psych cabinet. Patient's medications locked in security. [place] slip/involuntary hold paperwork filled out, signed by MD/ and scanned into chart. Yes Suicide risk score completed and icon visible on ED Track Board.yes faculty criminal justice assigned a patient safety specialist until one is provided by staffing. yes Patient safety specialist Observation Justification Form completed.Yes Complete bedside report with patient safety specialist. yes Patient safety specialist documenting on Observation Monitoring Record. yes Medication reconciliation completed. Yes ED Psych Hold orders placed by MD/DO, including home meds, diet, nicotine needs and comfort. yes Request hospital bed for patient. RN educates patient on evaluation process. N/A Lolis Avelar RN 01/15/25 7277 Images from the original note were not included. Chief Complaint Patient presents with Abdominal Pain Pt arrived from [facility] for abdominal pain; hx: pancreatitis; [facility]; alert and oriented x 4; GCS: 15 History of Present Illness: Ghislaine Givens is a 34 y.o. female with below past medical history presents for abdominal pain. [facility]. Patient had been diagnosed with pancreatitis 3 days ago, however lipase level just just yesterday was normal. Patient is received ultrasound imaging and CT imaging. Patient reports that she is actually been having intermittent abdominal pain for 3 years. Review of External Record -: Yes: Reviewed documentation from patient's [facility] facility PAST MEDICAL HISTORY: There is no problem list on file for this patient. Past Medical History: Diagnosis Date Diabetes mellitus ([facility] V24, [facility] V28) No past surgical history on file. No Known Allergies Patient's Medications New Prescriptions ALUMINUM-MAGNESIUM HYDROXIDE 200-200 MG/5 ML SUSPENSION Take 15 mL by mouth every 6 (six) hours if needed for heartburn for up to 10 days. FAMOTIDINE (PEPCID) 20 MG TABLET Take 1 tablet (20 mg total) by mouth 2 (two) times a day for 15 days. Previous Medications DICYCLOMINE (BENTYL) 20 MG TABLET Take 1 tablet (20 mg total) by mouth 2 (two) times a day for 10 days. IBUPROFEN (ADVIL,MOTRIN) 600 MG TABLET Take 1 tablet (600 mg total) by mouth every 6 (six) hours if needed for mild pain or moderate pain (for pain) for up to 7 days. ONDANSETRON ODT (ZOFRAN-ODT) 4 MG DISINTEGRATING TABLET Dissolve 1 tablet (4 mg total) on top of the tongue every 8 (eight) hours if needed for nausea or vomiting for up to 7 days. Modified Medications No medications on file Discontinued Medications No medications on file No family history on file. SOCIAL HISTORY: Social History Tobacco Use Smoking status: Never Smokeless tobacco: Never Substance Use Topics Alcohol use: Not Currently Social History Social History Narrative Not on file REVIEW OF SYSTEMS: ROS reviewed and otherwise negative unless stated above. PHYSICAL EXAM: ED Triage Vitals [01/15/25 1418] Temp Heart Rate Resp BP 36.7 C (98 F) 98 16 112/76 SpO2 Temp Source Heart Rate Source Patient Position 98 % Oral -- -- BP Location FiO2 (%) -- -- Physical Exam Constitutional: General: She is not in acute distress. Appearance: She is not toxic-appearing or diaphoretic. HENT: Head: Atraumatic. Right Ear: External ear normal. Left Ear: External ear normal. Eyes: General: Right eye: No discharge. Left eye: No discharge. Cardiovascular: Rate and Rhythm: Normal rate and regular rhythm. Pulmonary: Effort: Pulmonary effort is normal. No respiratory distress. Breath sounds: No stridor. No wheezing, rhonchi or rales. Abdominal: Palpations: Abdomen is soft. Tenderness: There is abdominal tenderness in the right upper quadrant, epigastric area and left upper quadrant. There is no rebound. Musculoskeletal: General: No deformity or signs of injury. Neurological: Mental Status: She is alert and oriented to person, place, and time. Mental status is at baseline. Psychiatric: Mood and Affect: Mood normal. Behavior: Behavior normal. ED STUDIES: Labs Reviewed BASIC METABOLIC PANEL - Abnormal Result Value Sodium 135 (*) Potassium 5.0 Chloride 99 CO2 28 Anion Gap 8 Glucose 179 (*) BUN 20 Creatinine 1.01 eGFR 76 BUN/Creatinine Ratio 19.8 Calcium 9.4 HEPATIC FUNCTION PANEL - Abnormal Total Protein 7.5 Albumin 4.5 Total Bilirubin 0.4 Bilirubin, Direct <0.1 Bilirubin, Indirect ALT (SGPT) 17 AST (SGOT) 11 (*) Alkaline Phosphatase 71 CBC WITH AUTO DIFFERENTIAL - Abnormal WBC 13.0 (*) RBC 4.55 Hemoglobin 12.6 Hematocrit 38.2 MCV 84.0 MCH 27.7 MCHC 33.0 RDW 14.4 Platelets 434 (*) MPV 9.7 Neutrophils Relative 59.8 Lymphocytes Relative 32.4 Monocytes Relative 6.3 Eosinophils Relative 0.1 Basophils Relative 0.5 Immature Granulocytes Relative 0.9 Neutrophils Absolute 7.75 (*) Lymphocytes Absolute 4.19 Monocytes Absolute 0.81 Eosinophils Absolute 0.01 Basophils Absolute 0.07 Immature Granulocytes Absolute 0.12 (*) LIPASE - Normal Lipase 38 CBC AND DIFFERENTIAL Narrative: The following orders were created for panel order CBC and differential. Procedure Abnormality Status --------- ------ CBC auto differential[[id number]] Abnormal Final result Please view results for these tests on the individual orders. No orders to display ED COURSE: Differential diagnosis includes but is not limited to pancreatitis, reflux, ulcer, less likely cholecystitis. Patient vitals are large unremarkable in ED. Will plan to write patient with Toradol for pain control. Patient returning to the emergency department today for the third time in 4 days for abdominal pain. Today patient reports her pain has been occurring intermittently for 3 years. She reports that she has been told in the past that it was due to hyperemesis cannabis. She has previously had ultrasound and CT imaging, these tests were considered, however these previous test done within the last several days have both been unremarkable with exception of some constipation. Previously her lab work did show an elevation in her lipase level, making it possible that her symptoms were due to pancreatitis. However her lipase level was normal when she was evaluated several days ago. It continues to be normal again today. Patient has been observed multiple times in the emergency department with out any evidence of significant pain prior to receiving pain medication. Her remaining lab work is largely unremarkable in the ED. Patient was discussed with social media director who discussed the patient with patient psychiatric facility. Psychiatric facility okay with receiving patient back. Will plan to discharge patient back to psychiatric facility. It would appear her pain is not quite so acute but has been occurring intermittently for multiple years, previously being told it was due to hyperemesis cannabis. I provided them with return precautions for me return to ED. Patient to follow-up with her primary care doctor after leaving psychiatric facility. Vitals: 01/15/25 1418 01/15/25 1838 BP: 112/76 (!) 178/101 BP Location: Left arm;Upper Patient Position: Lying Pulse: 98 83 Resp: 16 17 Temp: 36.7 C (98 F) 36.8 C (98.3 F) TempSrc: Oral Oral SpO2: 98% 99% Weight: 104 kg (230 lb) Height: 1.676 m (65.98) ED Course as of 01/15/25 1847 WedJan 15, 2025 1458 BP: 112/76 [AR] 1458 Temp: 36.7 C (98 F) [AR] 1458 Heart Rate: 98 [AR] 1458 Resp: 16 [AR] 1458 SpO2: 98 % [AR] ED Course User Index [AR] Mayra Jerome MD Clinical Impressions as of 01/15/251846 Abdominal pain, epigastric Medications ketorolac (TORADOL) injection 15 mg (15 mg intramuscular Given 01/15/251815) If yes to any of the below, please see above for details. Was independent interpretation of EKG rhythm strip, or radiology study completed no Was escalation of care including observation/admission considered? Yes however patient's evaluation today did not elucidate concerning findings warranting admission Was management discussed with a physician/healthcare provider/other source? yes Was a test result discussed with a radiologist? no Was a test considered but not performed? Yes Was a prescription medication considered? Yes alternative prescription medications are to help patient's symptoms Where there chronic conditions affecting care of the patient? yes Was patient's care significantly affected by social determinants of health? no If present, the above was a social determinant of health that is incorporated into the MDM as it complicates treatment and discharge plans. DIAGNOSTIC IMPRESSION: 1. Abdominal pain, epigastric DISPOSITION: Discharge ED Prescriptions Medication Sig Dispense Start Date End Date Auth. Provider famotidine (PEPCID) 20 mg tablet Take 1 tablet (20 mg total) by mouth 2 (two) times a day for 15 days. 30 tablet 01/15/2025 01/30/2025 Mayra Jerome MD aluminum-magnesium hydroxide 200-200 mg/5 mL suspension Take 15 mL by mouth every 6 (six) hours if needed for heartburn for up to 10 days. 355 mL 01/15/2025 01/25/2025 Mayra Jerome MD Procedures Signed, MD Mayra No MD 01/15/25 1550 Mayra Jerome MD 01/15/25 1847 documented in this encounter [facility] 01-14-2025 History of Presen t illness Narrative ED Note HPI CC: Chief Complaint Patient presents with Abdominal Pain Pt C/o lower right abdominal pain, x 2 days. Pt sts that she was here 2 days ago and diagnosed with pancreatitis. Pt sts that she it has continued to get worse. HPI: Ghislaine Givens is a 34 y.o. female with history of diabetes, chronic abdominal pain, presents to the ED today with significant abdominal pain as well as nausea and vomiting. Patient states that she has had similar pain ongoing for years, but denies any specific diagnosis. It sounds like her current episode of pain started around a month or so ago, and is having significant pain since then. Patient is currently admitted to [facility], but was seen 2 days ago in the ED for similar pain. At that time she had mildly elevated lipase, and was diagnosed with pancreatitis, right upper quadrant ultrasound otherwise negative. She was discharged with prescriptions for ibuprofen and Zofran. However, patient states that she continues to have persistent abdominal pain mainly on the right upper and lower quadrant, with nausea and vomiting, stating she has been unable to keep down her pills. She denies any acute change in bowel habits, denies any acute urinary symptoms, denies any vaginal bleeding. Discussed with independent historian -: Yes, EMS Chronic Conditions Affecting Care -: Yes: Diabetes Past History: Past Medical History: Diagnosis Date Diabetes mellitus ([facility] V24, [facility] V28) No past surgical history on file. Social History Tobacco Use Smoking status: Never Smokeless tobacco: Never Substance Use Topics Alcohol use: Not Currently Drug use: Not Currently No family history on file. No Known Allergies Current Outpatient Medications Medication Instructions ibuprofen (ADVIL,MOTRIN) 600 mg, oral, Every 6 hours PRN ondansetron ODT (ZOFRAN-ODT) 4 mg, translingual, Every 8 hours PRN Physical Exam: Patient Vitals for the past 24 hrs: BP Temp Temp src Pulse Resp SpO2 Height Weight 01/14/25 0722 138/80 -- -- -- -- 90 % -- -- 01/14/25 0702 (!) 169/103 -- -- 88 20 100 % -- -- 01/14/25 0616 (!) 139/94 36.6 C (97.8 F) Oral 78 17 100 % -- -- 01/14/25 0600 123/74 -- -- 72 17 100 % -- -- 01/14/25 0545 115/69 -- -- 70 17 100 % -- -- 01/14/25 0530 114/72 -- -- 71 16 100 % -- -- 01/14/25 0515 119/64 -- -- 73 16 100 % -- -- 01/14/25 0500 117/74 -- -- 72 15 99 % -- -- 01/14/25 0445 124/74 -- -- 73 18 98 % -- -- 01/14/25 0430 132/77 -- -- 74 19 99 % -- -- 01/14/25 0415 (!) 125/103 -- -- 83 19 100 % -- -- 01/14/25 0400 123/63 -- -- 76 19 99 % -- -- 01/14/25 0345 131/75 -- -- 74 18 99 % -- -- 01/14/250 -- -- -- 77 13 99 % -- -- 01/14/25 0335 -- -- -- 84 (!) 2 (!) 76 % -- -- 01/14/25329 (!) 156/79 -- -- 77 12 94 % -- -- 01/14/25324 -- -- -- 82 (!) 9 (!) 85 % -- -- 01/14/25319 -- -- -- 79 (!) 8 (!) 88 % -- -- 01/14/25314 (!) 145/81 -- -- 76 19 98 % -- -- 01/14/25 0310 -- -- -- 80 12 90 % -- -- 01/14/25304 -- -- -- 78 18 96 % -- -- 01/14/25 0300 (!) 140/92 -- -- 78 23 100 % -- -- 01/14/25 025 -- -- -- 90 25 100 % -- -- 01/14/25 025 -- -- -- 88 18 100 % -- -- 01/14/25 0245 -- -- -- (!) 115 -- 100 % -- -- 01/14/25 0240 (!) 162/118 -- -- -- -- -- -- -- 01/14/25 0238 -- -- -- -- -- -- 1.676 m (66) 104 kg (230 lb) CONSTITUTIONAL: Mild distress secondary to pain EYES: No conjunctival injection, no icterus. HENT: External ears normal, external nose normal. RESPIRATORY: Normal chest excursion with respiration, no stridor. Clear to oscillation bilaterally CARDIOVASCULAR: No cyanosis. Regular rate and rhythm. NEUROLOGICAL: Awake, alert and oriented. PSYCHOLOGICAL: The patient's mood and manner are tearful INTEGUMENTARY: Warm and dry. No rash noted. GI: Abdomen soft, nondistended. Significant tenderness to palpation both right upper and right lower quadrant. No rebound or guarding. MUSCULOSKETAL: MDM: 34-year-old female with recent diagnosis of pancreatitis, presents with continued abdominal pain on the right upper and lower quadrant, with persistent nausea and vomiting over the past few days stating that she has been unable to tolerate oral intake. She was initially given Dilaudid, Zofran and fluids for initial treatment. This did seem to significant help her symptoms initially. Labs show white count of 15. She has hyperglycemia to 78, normal bicarb and anion gap. Creatinine is normal, no other significant electrolyte derangement. Lipase is within normal limits, LFTs unremarkable, UA shows mild blood but no evidence of infection. Unfortunately her IV blew and we are having difficulty getting additional IV access. Noncontrast CT of the abdomen shows no acute intra-abdominal pathology including obstruction or peripancreatic edema. Unfortunately she continues to have persistent pain and vomiting and will be given additional medications. With her negative workup as above, if we are able to get her symptoms under control, anticipate she may be appropriate for discharge back to the psychiatric facility for which she came. However, she is still acutely symptomatic and vomiting, requiring additional medications. Patient be signed out to oncoming provider pending continued symptomatic treatment, disposition will be pending clinical improvement. Differential Diagnosis Considered - : Yes, the differential associated with the patient's presentation includes pancreatitis, cholelithiasis, cholecystitis, hepatitis, bowel obstruction, perforation, appendicitis, diverticulitis with or without complication including abscess, mesenteric ischemia, GERD/gastritis, ectopic , pyelonephritis, ureterolithiasis Independent interpretation of EKG, rhythm strip, or radiology study? Yes, CT Scan: My interpretation is no free air or obstruction CT Abdomen Pelvis wo Contrast Final Result 1. No nephrolithiasis or obstructive uropathy identified. 2. A moderately large amount of stool within the right colon. No bowel obstruction identified. 3. Clustered tiny tree-in-bud micronodules within the posteromedial aspects of both lower lobes, nonspecific, but most likely of an infectious/inflammatory etiology. -------- FINAL REPORT -------- Dictated By: Mekhi Tomas Dictated Date: 01/14/2025 06:28 Assigned Physician: Mekhi Tomas Reviewed and Electronically Signed By: Mekhi Tomas Signed Date: 01/14/2025 06:32 Workstation ID: [id number] Transcribed By: Self Edit Transcribed Date: 01/14/2025 06:28 Labs Reviewed BASIC METABOLIC PANEL - Abnormal Result Value Sodium 133 (*) Potassium 4.9 Chloride 99 CO2 22 Anion Gap 12 Glucose 278 (*) BUN 21 (*) Creatinine 0.94 eGFR 83 BUN/Creatinine Ratio 22.3 (*) Calcium 9.1 HEPATIC FUNCTION PANEL - Abnormal Total Protein 7.2 Albumin 4.0 Total Bilirubin 0.5 Bilirubin, Direct <0.1 Bilirubin, Indirect ALT (SGPT) 20 AST (SGOT) 12 (*) Alkaline Phosphatase 74 CBC WITH AUTO DIFFERENTIAL - Abnormal WBC 15.0 (*) RBC 4.52 Hemoglobin 12.5 Hematocrit 37.8 MCV 83.6 MCH 27.7 MCHC 33.1 RDW 14.4 Platelets 453 (*) MPV 9.9 Neutrophils Relative 65.3 Lymphocytes Relative 28.5 Monocytes Relative 4.9 Eosinophils Relative 0.1 Basophils Relative 0.3 Immature Granulocytes Relative 0.9 Neutrophils Absolute 9.80 (*) Lymphocytes Absolute 4.28 Monocytes Absolute 0.73 Eosinophils Absolute 0.01 Basophils Absolute 0.05 Immature Granulocytes Absolute 0.14 (*) URINALYSIS WITH REFLEX MICROSCOPIC - Abnormal Color, Urine Colorless (*) Clarity, Urine Clear Specific [place] Urine 1.014 pH, Urine 7.5 Leukocytes, Urine Negative Nitrite, Urine Negative Protein, Urine Negative Glucose, Urine 1000 (*) Ketones, Urine Negative Urobilinogen, Urine Normal Blood, Urine 3+ (*) Bilirubin, Urine Negative RBC, Urine 2 WBC, Urine 5 Squamous Epithelial, Urine Rare (*) LIPASE - Normal Lipase 60 HCG, SERUM, QUALITATIVE - Normal hCG Qual Negative CBC AND DIFFERENTIAL Narrative: The following orders were created for panel order CBC and differential. Procedure Abnormality Status --------- ------ CBC auto differential[[id number]] Abnormal Final result Please view results for these tests on the individual orders. URINALYSIS WITH REFLEX MICROSCOPIC Narrative: The following orders were created for panel order Urinalysis with reflex microscopic. Procedure Abnormality Status --------- ------ Urinalysis with reflex ...[[id number]] Abnormal Final result Alfaro urine culture tube[[id number]] Final result Yellow urine no additive[[id number]] Final result Please view results for these tests on the individual orders. Medications lactated Ringer's bolus 1,000 mL (1,000 mL intravenous New Bag 01/14/25705) HYDROmorphone (DILAUDID) injection 1 mg (1 mg intravenous Given 01/14/259) ondansetron (PF) (ZOFRAN) injection 4 mg (4 mg intravenous Given 01/14/25 0320) HYDROmorphone (DILAUDID) injection 1 mg (1 mg intramuscular Given 01/14/25705) metoclopramide (REGLAN) injection 10 mg (10 mg intramuscular Given 01/14/25705) Clinical Impressions as of 01/14/25724 Right lower quadrant abdominal pain Right upper quadrant abdominal pain Nausea and vomiting, unspecified vomiting type PDMP Reviewed by: on IMPRESSION: 1. Right lower quadrant abdominal pain 2. Right upper quadrant abdominal pain 3. Nausea and vomiting, unspecified vomiting type DISPOSITION: Signed out to oncoming provider pending symptomatic improvement ED Prescriptions None Douglas Khan MD 01/14/25 0252 Douglas Khan MD 01/14/25724 documented in this encounter [facility] 01-12-2025 History of Presen t illness Narrative Images from the original note were not included. [place] [facility] Psychiatric Transportation Request Of Note: For the safety of the patient and EMS crews the patient must remain in the purple psychiatric gown. Patient belongings must be kept away from the patient at all times. A PCS and or CMN will need to be provided before the transportation to the EMS Crews. Psychiatric Transports Only Ambulance Requesting Staff Member Call Back Number: [phone] Requesting Hospital: [facility] BP-35/BP-35 Requested Telephone Solicitor Supervisor Date & Time: DAVID Attending Provider: Mayra Jerome MD Patient Name: First Chon Sinha Heather : 1990 Patient Weight: 104 kg (230 lb) Destination Name: [address] , [place] [address] Primary Insurance: Payor: [employer] MEDICAID / Plan: [employer] [facility] MEDICAID / Product Type: *No Product type* / [place] Slipped: PINK SLIPPED Psychiatric Diagnosis: Suicidal Reason For Visit Chief Complaint Patient presents with Abdominal Pain Pt arrived via medics from [facility] facility with complaints of epigastric pain abdominal pain and nausea/vomiting x 6 hours-pt just stated she's been dealing with this for a month; hx: DM; alert and oriented x 4, GCS: 15; states period ended today; homeless Past Medical History: has no past medical history on file. Length of Stay: Less than 12 hours Is the Patient Combative or Discussed Elopement? No Has the patient required Physical or Chemical restraints? No Will the patient require restraints during transport? No Other Important Information: Patient is a return back to [facility] [place] [facility] Shift & Environmental Safety Checklist Assessment and vital signs documented at least every 8 hours including temperature and pain. yes Medications reviewed. Scheduled medication(s) verified as being on the unit and stored in a secured location. yes Behavior: Cooperative Suicidal Risk Score: CSSR Scale (Adult) - Moderate Risk Falls Risk Scored: no Patient in [facility] gown. yes Auto Research Engineer: fuel house attendant at bedside Visitor alert sign posted. N/A Meal delivered to patient. N/A Room checked for the following safety items. yes Patient belongings removed. IV drawers locked, if present. Phone removed. Closest - no poles, drawers, shelves, or hangers, if present. Windows - locked, if present. Restrooms - No clothes, cans, razors, non-essential equipment, if present. Room - Removal of all non-essential equipment, cords, gait belts, and plastic bags including trash bags. Patient/ family/ guardian education form. N/A Guardian: Self Guardian Contact Phone Number: not applicable Ensure psych consult has been placed and assist with facilitation of provider rounding. No [place] Slip/Involuntary Hold Completed: yes Planned Disposition: Discharge Cecily Teran RN 01/12/25 1029 [place] [facility] Initial Patient Checklist faculty criminal justice notified of incoming psych patient. yes Unsafe items removed from room and IV drawer/cart locked. Yes Patient observed by 2 staff members while disrobing. Patient placed in [facility] gown and given hospital socks. yes Primary RN to request security presence for wanding. no faculty criminal justice to witness wanding and verify safe patient space. no Belonging list completed. ALL belongings. NO EXCEPTIONS. Labeled and placed in MCCE: Psych cabinet. Patient's medications locked in security. [place] slip/involuntary hold paperwork filled out, signed by MD/ and scanned into chart. N/A Suicide risk score completed and icon visible on ED Track Board.yes faculty criminal justice assigned a patient safety specialist until one is provided by staffing. yes Patient safety specialist Observation Justification Form completed.Yes Complete bedside report with patient safety specialist. yes Patient safety specialist documenting on Observation Monitoring Record. yes Medication reconciliation completed. Yes ED Psych Hold orders placed by MD/DO, including home meds, diet, nicotine needs and comfort. yes Request hospital bed for patient. RN educates patient on evaluation process. N/A Cecily Teran RN 01/12/25 1028 Images from the original note were not included. Chief Complaint Patient presents with Abdominal Pain Pt arrived via medics from [facility] with complaints of epigastric pain abdominal pain and nausea/vomiting x 6 hours-pt just stated she's been dealing with this for a month; hx: DM; alert and oriented x 4, GCS: 15; states period ended today; homeless History of Present Illness: Ghislaine Givens is a 34 y.o. female with no known significant past medical history presents for abdominal pain. Patient reports reports that been having abdominal pain intermittently for about a month. Reports the pain currently started this morning. They report they have had multiple episodes of vomiting. Denies episodes of diarrhea or change in urinary habits. Reports that she does not know what causes her symptoms. She is currently psychiatric hospitalized for trying to kill herself. Discussed with independent historian -: Yes, EMS Review of External Record -: Yes: Reviewed documentation with patient's outside facility PAST MEDICAL HISTORY: There is no problem list on file for this patient. No past medical history on file. No past surgical history on file. No Known Allergies Patient's Medications New Prescriptions IBUPROFEN (ADVIL,MOTRIN) 600 MG TABLET Take 1 tablet (600 mg total) by mouth every 6 (six) hours if needed for mild pain or moderate pain (for pain) for up to 7 days. ONDANSETRON ODT (ZOFRAN-ODT) 4 MG DISINTEGRATING TABLET Dissolve 1 tablet (4 mg total) on top of the tongue every 8 (eight) hours if needed for nausea or vomiting for up to 7 days. Previous Medications No medications on file Modified Medications No medications on file Discontinued Medications No medications on file No family history on file. SOCIAL HISTORY: Social History Tobacco Use Smoking status: Not on file Smokeless tobacco: Not on file Substance Use Topics Alcohol use: Not on file Social History Social History Narrative Not on file REVIEW OF SYSTEMS: ROS reviewed and otherwise negative unless stated above. PHYSICAL EXAM: ED Triage Vitals [01/12/25 0855] Temp Heart Rate Resp BP 36.7 C (98.1 F) 79 16 (!) 164/110 SpO2 Temp Source Heart Rate Source Patient Position 99 % Oral -- -- BP Location FiO2 (%) -- -- Physical Exam Constitutional: General: She is in acute distress (Appears in pain). Appearance: She is not toxic-appearing or diaphoretic. HENT: Head: Atraumatic. Right Ear: External ear normal. Left Ear: External ear normal. Eyes: General: Right eye: No discharge. Left eye: No discharge. Cardiovascular: Rate and Rhythm: Normal rate and regular rhythm. Pulmonary: Effort: Pulmonary effort is normal. No respiratory distress. Breath sounds: No stridor. No wheezing, rhonchi or rales. Abdominal: Palpations: Abdomen is soft. Tenderness: There is abdominal tenderness in the right upper quadrant. There is no rebound. Musculoskeletal: General: No deformity or signs of injury. Neurological: Mental Status: She is alert and oriented to person, place, and time. Mental status is at baseline. Psychiatric: Mood and Affect: Affect is tearful. Behavior: Behavior is cooperative. ED STUDIES: Labs Reviewed BASIC METABOLIC PANEL - Abnormal Result Value Sodium 133 (*) Potassium 5.1 Chloride 99 CO2 23 Anion Gap 11 Glucose 307 (*) BUN 15 Creatinine 0.86 eGFR 92 BUN/Creatinine Ratio 17.4 Calcium 9.1 LIPASE - Abnormal Lipase 90 (*) CBC WITH AUTO DIFFERENTIAL - Abnormal WBC 12.7 (*) RBC 4.68 Hemoglobin 12.6 Hematocrit 39.0 MCV 83.3 MCH 26.9 (*) MCHC 32.3 RDW 14.4 Platelets 441 (*) MPV 9.7 Neutrophils Relative 72.6 Lymphocytes Relative 21.4 Monocytes Relative 4.2 Eosinophils Relative 0.1 Basophils Relative 0.5 Immature Granulocytes Relative 1.2 Neutrophils Absolute 9.25 (*) Lymphocytes Absolute 2.72 Monocytes Absolute 0.53 Eosinophils Absolute 0.01 Basophils Absolute 0.07 Immature Granulocytes Absolute 0.15 (*) HEPATIC FUNCTION PANEL - Normal Total Protein 7.6 Albumin 4.0 Total Bilirubin 0.5 Bilirubin, Direct 0.1 Bilirubin, Indirect 0.4 ALT (SGPT) 25 AST (SGOT) 20 Alkaline Phosphatase 89 CBC AND DIFFERENTIAL Narrative: The following orders were created for panel order CBC and differential. Procedure Abnormality Status --------- ------ CBC auto differential[[id number]] Abnormal Final result Please view results for these tests on the individual orders. US Abdomen Limited Final Result 1. No acute abnormality. No gallstone. 2. Hepatic steatosis. -------- FINAL REPORT -------- Dictated By: Jatin Thomas Dictated Date: 01/12/2025 09:54 Assigned Physician: Jatin Thomas Reviewed and Electronically Signed By: Jatin Thomas Signed Date: 01/12/2025 09:56 Workstation ID: [id number] Transcribed By: Self Edit Transcribed Date: 01/12/2025 09:54 ED COURSE: Differential diagnosis includes but is not limited to pancreatitis, reflux, ulcer, cholecystitis. Patient vitals are large unremarkable in ED with exception of elevated blood pressure. Will plan to write patient with IV pain medication, antiemetic, and IV fluids. Patient's lab work shows a mild elevation in lipase level. Rest patient's lab work is largely unremarkable in ED. There are ultrasound imaging does not show acute abnormalities. On reevaluation patient is currently asleep. They report improvement in their pain. They are currently still undergoing IV fluids, has not yet completed. Will plan to discharge patient back to facility following completion of IV fluids. Will plan to provide with further Toradol prior to discharge. I provided patient with return precautions for immediate return to ED. Patient to follow-up with PCP after leaving facility. Vitals: 01/12/25 0855 01/12/25 0900 BP: (!) 164/110 Pulse: 79 Resp: 16 Temp: 36.7 C (98.1 F) TempSrc: Oral SpO2: 99% Weight: 104 kg (230 lb) Height: 1.676 m (66) ED Course as of 01/12/25 1121 WedJan 12, 2025 0936 BP(!): 164/110 [AR] 0936 Temp: 36.7 C (98.1 F) [AR] 0936 Heart Rate: 79 [AR] 0936 Resp: 16 [AR] 0936 SpO2: 99 % [AR] ED Course User Index [AR] Mayra Jerome MD Clinical Impressions as of 01/12/25 1121 Acute pancreatitis, unspecified complication status, unspecified pancreatitis type Medications ketorolac (TORADOL) injection 15 mg (has no administration in time range) morphine injection 4 mg (4 mg intravenous Given 01/12/25906) ondansetron (PF) (ZOFRAN) injection 4 mg (4 mg intravenous Given 01/12/25906) sodium chloride 0.9 % bolus 1,000 mL (1,000 mL intravenous New Bag 01/12/25906) If yes to any of the below, please see above for details. Was independent interpretation of EKG rhythm strip, or radiology study completed no Was escalation of care including observation/admission considered? Yes however patient's evaluation today did not elucidate concerning findings warranting admission Was management discussed with a physician/healthcare provider/other source? no Was a test result discussed with a radiologist? no Was a test considered but not performed? Yes CT imaging considered, or patient's pain is largely located close to her right upper quadrant Was a prescription medication considered? Yes alternative prescription medications are to help with patient's symptoms Where there chronic conditions affecting care of the patient? Yes depression Was patient's care significantly affected by social determinants of health? Yes currently admitted to the psychiatric facility If present, the above was a social determinant of health that is incorporated into the MDM as it complicates treatment and discharge plans. DIAGNOSTIC IMPRESSION: 1. Acute pancreatitis, unspecified complication status, unspecified pancreatitis type DISPOSITION: Discharge ED Prescriptions Medication Sig Dispense Start Date End Date Auth. Provider ondansetron ODT (ZOFRAN-ODT) 4 mg disintegrating tablet Dissolve 1 tablet (4 mg total) on top of the tongue every 8 (eight) hours if needed for nausea or vomiting for up to 7 days. 20 tablet 01/12/2025 01/19/2025 Mayra Jerome MD ibuprofen (ADVIL,MOTRIN) 600 mg tablet Take 1 tablet (600 mg total) by mouth every 6 (six) hours if needed for mild pain or moderate pain (for pain) for up to 7 days. 28 each 01/12/2025 01/19/2025 Mayra Jerome MD Procedures Signed, MD Mayra No MD 01/12/25 0946 Mayra Jerome MD 01/12/25 1126 documented in this encounter [facility] 01-12-2025 Hospital Discharg e instructions Mayra Jerome MD - 01/12/2025 10:23 AM EDT You were seen in the Emergency Department today. You received blood tests and ultrasound imaging, which showed evidence of an elevation in your lipase level, indicating that your pain may be due to pancreatitis. You should drink lots of water and take the pain medication as well as antiemetics to help with your symptoms. You should avoid foods that will make your pancreatitis worse. Information on this is provided. You should follow-up with your primary care doctor after you leave the psychiatric facility. This is important. You should return to the nearest ED immediately if you begin to experience uncontrolled pain, uncontrolled vomiting, fainting, or any new or worsening symptoms. The [place] ED is open 24 hours a day. The following attachments cannot be sent through Care Everywhere.Pancreatitis (Citizen Of [place])documented in this encounter [facility] 01-12-2025 Emergency departm ent Note Bed: BP-35 Expected date: Expected time: Means of arrival: Comments: MEDIC [facility] 01-12-2025 Miscellaneous Notes Formattin g of this note might be different from the original. Bed: BP-35 Expected date: Expected time: Means of arrival: Comments: MEDIC documented in this encounter [facility] 01-08-2025 Discharge summary Note Date/Time January 08, 2025 4:44pm [facility] Medical Records Department [address] [place] [address] Discharge Summary 01/08/25 1637 MR#: [id number] Acct: [id number] Name: GHISLAINE GIVENS Rep #:[id number] : 1990 34 From: Frantz Coulter DO PCP: BROOKLYN Warren, [employer] Statu s:ADM IN Location: ICU ICU05-1 Providers Date of Admission: 01/07/25 Date of Discharge: 01/08/25 Primary Care Physician: BROOKLYN Warren, [employer] Reason For Visit: SUICIDE ATTEMPT-OVERDOSE OF INSULIN Diagnosis Discharge Diagnosis (1) Suicidal behavior: Status: Acute Code(s): R45.89 - Other symptoms and signs involving emotional state Plan 1. Intentional Lantus insulin overdose-suicide attempt-patient will be admittedto PCU, blood sugars will be monitored closely, patient will be placed on D5W with potassium, when she is medically stable she will be seen by crisis #2 hypokalemia-patient was given potassium replacement, BMP will be repeated tomorrow morning #3 borderline personality disorder with chronic depression/anxiety-complicates care, management, recovery, and prognosis #4 type 1 diabetes mellitus-under poor control, probably due to patient noncompliance Total clinical time spent by myself addressing the patient's medical issues, reviewing all of her data, and collaborating with patient's care team: 75 minutes Medications at Discharge Home Medications insulin glargine 100 unit/mL (3 mL) subcutaneous pen (Lantus Solostar U-100 Insulin) 25 unit subcut BID diabetes 08/12/22 dulaglutide 4.5 mg/0.5 mL subcutaneous pen injector (Trulicity) 4.5 mg subcut SAdiabetes 11/25/24 linaclotide 145 mcg capsule (Linzess) 145 mcg PO QAM IBS #30 caps 12/13/24 promethazine 25 mg tablet 25 mg PO Q6H PRN nausea and vomiting #25 tabs 01/01/25 Hospital Course Operations None Procedures None Summary of Care Provided Minutes Spent on Discharge: 31 Hospital Course: This 34-year-old white female with a history of personality disorder was [facility]he emergency room of [facility] stating that he took an overdose of insulin intentionally-she used up to Lantus insulin pens approximately 6:30 AM and did not come to the emergency room until [id number] AM. This was a total of 600 units of Lantus. Labs were obtained, her initial BMP was remarkable for potassium of 2.8 and a glucose of 85, CBC showed a white blood cell count of 16, the patient was alert and did follow instructions appropriately. She was given food and orange juice and blood sugars were monitored in the ER for approximately 3 to 4 hours. It became evident that the patient needed to be admitted and I admitted her to PCU with hourly blood sugars. Patient was also given potassium replacement and repeat labs were obtained. That night, her blood sugars dropped with blood sugars intothe 40s, at that time, the patient was transferred to ICU for further care. Shewas maintained on D10 and in the morning on 01/08/2025, her blood sugar stopped dropping. She was seen by crisis that day and we received approval for her to go to [facility] and [place]. On 01/08/2025, patient was seen and examined: On examination she appeared her stated age, she does not appear to be in any distress. Vital signs as documented. Skin warm and dry and without overt rashes. Neck without JVD, thyroid appears normal, trachea is midline, neck is supple. Lungs clear, normal air movement was noted. Heart exam notable for regular rhythm, normal sounds and absence of murmurs, rubs or gallops. Abdomen unremarkable and without evidence of organomegaly, masses, or abdominal aortic enlargement, bowel sounds are present in all 4 quadrants, no abdominal tenderness was noted. Extremities nonedematous, no cyanosis was noted,no clubbing was noted. Neuro: Cranial nerves II through XII are grossly intact,no focal motor deficits were noted, sensation to light touch and pinprick is intact, motor exam 5/5 throughout. Psych: Patient is alert and oriented x3, shedoes not appear anxious or depressed, she does not appear agitated. Patient was transferred to [facility] for further care in a psychiatric facility there ([facility]) in stable condition on 01/08/2025 Medical Records Data Homelessness:: Unsheltered Weight / BMI Weight Weight: 107.6 kg Body Mass Index (BMI) 38.2 ABG / Lab / Microbiology Data 01/08/25 03:40 01/08/25 14:33 Laboratory: Laboratory Results - last 24 hr 01/07/25 16:53: POC Glucose 86 01/07/25 17:37: POC Glucose 75 01/07/25 18:41: POC Glucose 156 H 01/07/25 19:36: POC Glucose 96 01/07/25 20:47: POC Glucose 46 L 01/07/25 21:22: POC Glucose 105 01/07/25 21:38: POC Glucose 74 01/07/25 21:59: POC Glucose 153 H 01/07/25 22:24: POC Glucose 121 H 01/07/25 23:22: POC Glucose 57 L 01/08/25 00:07: POC Glucose 107 H 01/08/25 00:59: POC Glucose 58 L 01/08/25 01:42: POC Glucose 130 H 01/08/25 02:23: POC Glucose 115 H 01/08/25 03:40: WBC 12.0 H, RBC 4.01 L, Hgb 11.0 L, Hct 33.6 L, MCV 83.8, MCH 27.4, MCHC 32.7, RDW Std Deviation 44.8 H, RDW Coeff of John 14.8 H, Plt Count 299, MPV 9.6, Immature Gran % (Auto) 0.700, Neut % (Auto) 50.0, Lymph % (Auto) 41.0, [place] % (Auto) 7.6, Eos % (Auto) 0.4, Baso % (Auto) 0.3, Absolute Neuts (auto) 6.0, Absolute Lymphs (auto) 4.91 H, Nucleated RBC % 0, Sodium 137, Potassium 2.9 L, Chloride 100, Carbon Dioxide 23.8, Anion Gap 14, BUN 10, Creatinine 0.91, Estim Creat Clear Calc 108.36, Est GFR (MDRD) Non-Af 86, BUN/Creatinine Ratio 11.2, Glucose 81, Calcium 8.2 01/08/25 03:42: POC Glucose 85 01/08/25 04:48: POC Glucose 71 L 01/08/25 05:31: POC Glucose 103 01/08/25 06:34: POC Glucose 72 L 01/08/25 07:00: POC Glucose 132 H 01/08/25 07:52: POC Glucose 94 01/08/25 09:07: POC Glucose 114 H 01/08/25 10:10: POC Glucose 138 H 01/08/25 11:17: POC Glucose 128 H 01/08/25 14:33: Potassium 3.5 Radiography Diagnostic Testing: Radiology Impression Abdomen/Pelvis CT 01/07/25 21:29 IMPRESSION: No acute findings Reading Location: [place] [address] D/C Instructions DC O2, CPAP, BIPAP Needs Home O2 [...] Simvastatin 80mg Discharge Plan Admission Admit Date/Time: 01/07/25 15:24 Attending Provider: Frantz Coulter Primary Care Provider: Amy Solorzano Discharge Orders/Prescriptions Prescriptions: No Action Linzess 145 mcg capsule 145 mcg PO QAM Qty: 30 2RF insulin glargine [Lantus Solostar U-100 Insulin] 100 unit/mL (3 mL) insulin pen 25 unit SUBCUT BID Patient Comments: PT HAS BEEN TAKING 35-40 UNITS TWICE DAILY Trulicity 4.5 mg/0.5 mL pen injector 4.5 mg subcut SA promethazine 25 mg tablet 25 mg PO Q6H PRN (Reason: nausea and vomiting) Qty: 25 0RF Rx Instructions: 1 or 2 every 6 hours as needed for nausea and vomiting Referrals / Follow Up: Amy Solorzano, [employer] [Primary Care Provider] - Disposition Discharge Orders: Discharge Patient (Routine); Ordered 01/08/25 Ordered By: Dr. Frantz Coulter Charges/Coding Visit Charges Inpatient E&M: 65943 Disch Hosp >30min 01/08/25 1644 <Electronically signed by Frantz Coulter DO> Cosigner Signature (if applicable): CC: BROOKLYN TINAJEROC Amy Solorzano; Dr. Frantz Coulter, ~ Signed [facility] Work Phone: 1(328) 414-636406-30-2025 [facility] Hospital Discharge instructionsAdditional Instructions Date of Discharge: 01/08/25[facility] Work Phone: 1(135) 847-682706-30-2025 Progress note Author Lida Franks [facility] Note Date/Time January 07, 2025 11:3 2pm [facility] Medical Records Department [address] [place] [address] Progress Note - Hospitalist 01/07/252131 MR#: [id number] Acct: [id number] Name: GHISLAINE GIVENS Rep #:[id number] : 1990 34 From: Lida Franks MD PCP: BROOKLYN Warren, [employer] Statu s:ADM IN Location: ICU ICU05-1 Hospitalist Note Despite patient being on D10 running at 60 mL/h she has had significant continued hypoglycemic events. Will transition patient to the ICU with cnc maintenance mechanic consultation per protocol with continued close glucose monitoring with adjustments of drip as needed. Given ongoing severe abdominal pain although this could be related to be cautious will obtain CT abdomen and pelvis with IV contrast stat. Will make NPO, add IV PPI, add IV dilaudid in the interimand hold on further toradol until CT results. 01/07/252134 <Electronically signed by Lida Franks MD> Cosigner Signature (if applicable): CC: ~ Signed ADDENDUM by Dr. Lida Franks MD on 01/07/[address] A/P without acute findings. Will change back to regular diet and encourage intake. Change to oral PPI. 01/07/252331<Electronically signed by Lida Franks MD> Cosigner Signature (if applicable): cc: ~* Signed [facility] Work Phone: 1(266) 649-296106-29-2025 Radiology Diagnostic study [facility]06-29-2025 History and physical note Author [facility] Note Date/Time January 07, 2025 6:19 pm [facility] Medical Records Department [address] [place] [address] H&P Exam - Hospitalist 01/07/25 180 MR#: [id number] Acct: [id number] Name: GHISLAINE GIVENS Rep #:[id number] : 1990 34 From: Frantz Coulter DO PCP: BROOKLYN Warren, [employer] Statu s:ADM IN Location: [facility] [id number]- 1 HPI - General General Date of Admission: 01/07/25 Date of Service: 01/07/25 Chief Complaint: Intentional insulin overdose HPI Narrative GHISLAINE GIVENS, is a 34 F who presents to the emergency room at [facility] admitting that she took an overdose of insulin in an attempt to kill herself. Patient took 600 units of Lantus subcu at approximately 6 AM today. Patient has had some stressors in her life recently including the break-up of her boyfriend and eviction from the hotel where she was staying. Patient is alert, she is able to intake food and liquids at this time, patient'sglucose on her BMP was 85, potassium was 2.8. CBC showed an elevated white blood cell count of 16,000. Toxicology was positive for cannabinoids, blood alcohol level was less than 10. Patient will be admitted to PCU, she will be placed on D5 W with potassium, potassium supplementation was given to her in theemergency room, blood sugars will be checked hourly, BMP will be obtained tomorrow morning along with a CBC. When patient is medically stable, she will be seen by [place] Medical History Borderline personality disorder Depression with anxiety Obesity (BMI 30-39.9) Medical non-compliance Cyclic vomiting syndrome Diabetic ketoacidosis Cannabis abuse Type 2 diabetes mellitus with peripheral neuropathy [...] Taken ?Type insulin glargine 100 unit/mL (3 25 unit subcut BID dorene betes 08/12/22 01/07/25 History mL) subcutaneous pen (Lantus Solostar U-100 Insulin) dulaglutide 4.5 mg/0.5 mL 4.5 mg subcut SA diabetes 01/07/25 History subcutaneous pen injector (Trulicity) linaclotide 145 mcg capsule 145 mcg PO QAM IBS #30 cap s 12/13/24 12/29/24 Rx (Linzess) promethazine 25 mg tablet 25 mg PO Q6H PRN nausea and 01/01/25 Unknown Rx vomiting #25 tabs Allergy/AdvReac Type Severity Reaction Status Date / Time No Known Allergies Allergy Verified 01/07/25 12:49 Family History Other Bleeding disorder Cancer Diabetes Hypertension Surgical History Hx of foot surgery Hx of foot surgery Social History (Reviewed 01/07/25 @ 17:29 by Rahel Galeana Smoking Status: Former smoker alcohol intake: never substance use type: does not use what type of physical activity do you participate in: none Homelessness:: Unsheltered ROS Constitutional Constitutional: Denies anorexia, change in weight, fever(s), night sweats or weakness Eyes Eyes: Denies blurry vision, change in vision, discharge from eye(s) or eye pain Cardiovascular Cardiovascular: Denies chest pain, claudication, edema or palpitations Respiratory/Chest Respiratory/Chest: Denies cough, hemoptysis, shortness of breath at rest or shortness of breath with exertion Gastrointestinal Gastrointestinal: Denies abdominal pain, constipation, diarrhea, hematemesis, hematochezia, melena, nausea or vomiting Genitourinary Genitourinary: Denies dysuria, hematuria, urinary frequency, urinary hesitancy, urinary incontinence or urinary urgency Musculoskeletal Musculoskeletal: Denies back pain, joint pain, joint stiffness, joint swelling, myalgias or neck pain Neurologic Neurologic: Denies abnormal gait, abnormal speech, dizziness, focal weakness, headache(s), loss of vision, numbness, other visual disturbances, paresthesias, syncope or tingling Psychiatric Psychiatric: Reports anxiety, depression and suicidal ideation; Denies cognitiveimpairment, irritability or mood swings Endocrine Endocrinology: Reports other Details: Poorly controlled diabetes ; Denies change in body appearance, cold intolerance, excessive sweating, heat intolerance, polydipsia or polyuria Hematologic/Lymphatic Hematologic/Lymphatic: Denies none, anemia, easy bleeding, easy bruising or lymphadenopathy Allergic/Immunologic Allergic/Immunologic: Denies rhinitis, urticaria, eczemia or asthma Vital Signs Vital Signs Vital Signs: 01/07/25 12:49 01/07/25 12:53 01/07/25 13:28 Temperature 97.7 F L Temperature Source Oral Pulse Rate 85 106 H Respiratory Rate 10 L Respiratory Pattern Normal Blood Pressure 133/92 H 118/82 H Blood Pressure Mean 105 94 Blood Pressure Source Blood Pressure Position Blood Pressure Location Pulse Ox 100 99 Oxygen Delivery Method Room Air Room Air 01/07/25 13:30 01/07/25 14:00 01/07/25 14:30 Temperature 98 F Temperature Source Pulse Rate 102 H 92 84 Respiratory Rate 13 14 19 H Respiratory Pattern Blood Pressure 139/91 H 132/79 H 121/71 H Blood Pressure Mean 103 93 87 Blood Pressure Source Blood Pressure Position Blood Pressure Location Pulse Ox 100 100 100 Oxygen Delivery Method 01/07/25 15:00 01/07/25 15:30 01/07/25 16:00 Temperature Temperature Source Pulse Rate 93 91 101 H Respiratory Rate 16 19 H 18 Respiratory Pattern Blood Pressure 124/88 H 133/90 H 125/89 H Blood Pressure Mean 98 102 102 Blood Pressure Source Blood Pressure Position Blood Pressure Location Pulse Ox 100 100 98 Oxygen Delivery Method 01/07/25 16:30 01/07/25 17:32 Temperature 98.2 F Temperature Source Oral Pulse Rate 81 90 Respiratory Rate 11 L 16 Respiratory Pattern Blood Pressure 122/69 H 145/90 H Blood Pressure Mean 85 108 Blood Pressure Source Monitor Blood Pressure Position Semi-Fowlers Blood Pressure Location Left Arm Pulse Ox 99 100 Oxygen Delivery Method Room Air Weight Weight: 104.4 kg Body Mass Index (BMI) 37.1 Physical Exam Const alert, oriented x3 and no apparent distress General Appearance: cooperative, well kempt and well developed Orientation / Consciousness: awake, oriented to person, oriented to place and oriented to time HEENT normocephalic, head/scalp atraumatic, hearing grossly normal bilaterally and moist oral mucous membranes Eyes PERRL, EOMs intact bilaterally and conjunctivae normal Neck supple, no JVD and thyroid normal General: trachea midline Resp normal respiratory effort, no retractions, no use of accessory muscles and clearto auscultation bilaterally Auscultation: Negative for rales, rhonchi or wheezes Cardio regular rate, regular rhythm, S1 normal heart sound, S2 normal heart sound, no murmurs, no rub and no gallops GI normal to inspection, nondistended, normoactive bowel sounds, soft to palpation,non-tender and non-distended Extremity no clubbing, cyanosis or edema Skin no rashes or lesions noted General Skin Exam: no breakdown Neuro oriented x3, CN's II-XII intact bilaterally, moves all extremities, no focal motor deficits and no sensory deficits noted Sensorium / Orientation: awake and alert Speech: speech normal Psych Psych Narrative: Patient has flat affect Mood & Affect: depressed Results Lab / Micro Data 01/07/25 12:52 01/07/25 12:52 Labs: Laboratory Results - last 24 hr 01/07/25 12:48: POC Glucose 71 L 01/07/25 12:52: WBC 16.0 H, RBC 4.75, Hgb 13.1, Hct 38.5, MCV 81.1, MCH 27.6, MCHC 34.0, RDW Std Deviation 42.3, RDW Coeff of John 14.6, Plt Count 477 H, MPV 9.5, Immature Gran % (Auto) 0.600, Neut % (Auto) 63.9, Lymph % (Auto) 27.8, [place]% (Auto) 7.4, Eos % (Auto) 0.1, Baso % (Auto) 0.2, Absolute Neuts (auto) 10.2 H,Absolute Lymphs (auto) 4.44, Nucleated RBC % 0, Sodium 136, Potassium 2.8 L, Chloride 98, Carbon Dioxide 20.7 L, Anion Gap 18 H, BUN 11, Creatinine 1.10, Estim Creat Clear Calc 90.29, Est GFR (MDRD) Non-Af 68, BUN/Creatinine Ratio 10.4, Glucose 85, Calcium 9.1, Total Bilirubin 0.64, AST 35 H, ALT 17, Alkaline Phosphatase 74, Total Protein 7.7, Albumin 3.9, Globulin 3.8, Albumin/Globulin Ratio 1.0, Serum , Qual NEGATIVE, Ethyl Alcohol < 10.1 01/07/25 13:04: Urine Color Yellow, Urine Clarity Sl. Cloudy, Urine pH 6.0, Ur Specific [place] 1.015, Urine Protein 30 H, Urine Glucose (UA) Normal, Urine Ketones Negative, Urine Occult Blood 250 H, Urine Nitrite Negative, Urine Bilirubin Negative, Urine Urobilinogen Normal, Ur Leukocyte Esterase 25 H, UrineRBC 0-5 SEEN, Urine WBC 5-10 SEEN, Ur Squamous Epith Cells 0-5 SEEN, Urine Bacteria 2+, Urine Mucus 1+, Urine Opiates Screen NEGATIVE, U Buprenorphine QualNEGATIVE, Ur Oxycodone Screen NEGATIVE, Urine Methadone Screen NEGATIVE, Urine Fentanyl Screen NEGATIVE, Ur Barbiturates Screen NEGATIVE, Ur Phencyclidine ScrnNEGATIVE, Ur Amphetamines Screen NEGATIVE, U Benzodiazepines Scrn NEGATIVE, Urine Cocaine Screen NEGATIVE, U Cannabinoids Screen PRESUMPTIVE POSITIVE 01/07/25 13:47: POC Glucose 111 H 01/07/25 14:48: POC Glucose 97 01/07/25 15:45: POC Glucose 68 L 01/07/25 16:53: POC Glucose 86 Assessment & Plan Assessment/Plan (1) Suicidal behavior: PLAN: Plan 1. Intentional Lantus insulin overdose-suicide attempt-patient will be admittedto PCU, blood sugars will be monitored closely, patient will be placed on D5W with potassium, when she is medically stable she will be seen by crisis #2 hypokalemia-patient was given potassium replacement, BMP will be repeated tomorrow morning #3 borderline personality disorder with chronic depression/anxiety-complicates care, management, recovery, and prognosis #4 type 1 diabetes mellitus-under poor control, probably due to patient noncompliance Total clinical time spent by myself addressing the patient's medical issues, reviewing all of her data, and collaborating with patient's care team: 75 minutes Charges/Coding Visit Charges Inpatient E&M: 42380 Init Hosp L3 01/07/251818 <Electronically signed by Frantz Coulter DO> Cosigner Signature (if applicable): CC: [employer] Amy Solorzano; Dr. Frantz Coulter DO~ Signed [facility] Work Phone: [phone] Discharge summary Author Fabricio Guevara [facility] Note Date/Time January 07, 2025 4:04 pm [facility] Medical Records Department [address] [place] [address] Emergency Department Summary 01/07/25 MR#: [id number] Acct: [id number] Name: GHISLAINE GIVENS Rep #:[id number] : 1990 34 From: Fabricio Guevara MD PCP: BROOKLYN Warren, LINE MAINTENANCE-C Statu s:REG ER Location: ED HPI <MIGUEL A Ward - Last Filed: 01/07/25 16:04> History of Present Illness Chief Complaint: Suicidal Narrative Narrative: 34-year-old female with past medical history of DM2, cyclical vomiting syndrome presents after an intentional overdose of insulin. She states she has had ongoing issues with nausea vomiting abdominal pain for a month and has been in the ER multiple times. She lives in apartment with her boyfriend but they brokeup and she moved into hotel 2 days ago. She did not have money to stay very longer and this morning was feeling depressed and tried to kill herself by taking 2 Lantus pens (200 units) and a full Trulicity pen. She had to check outof the hotel and told the staff that she took too much insulin and they called EMS. Patient denies taking any other prescription medications, drugs, or alcohol. She states she has not smoked weed for a month. She reports 1 suicideattempt at age 20 by overdosing on pills but she woke up and was fine it was notevaluated anywhere. She has never been hospitalized for mental health issues. [facility] <MIGUEL A Ward - Last Filed: 01/07/25 16:04> [facility] Medical History Borderline personality disorder Depression with anxiety Obesity (BMI 30-39.9) Medical non-compliance Cyclic vomiting syndrome Diabetic ketoacidosis Cannabis abuse Type 2 diabetes mellitus with peripheral neuropathy [...] Taken ?Type insulin glargine 100 unit/mL (3 25 unit subcut BID doreen betes 08/12/22 01/07/25 History mL) subcutaneous pen (Lantus Solostar U-100 Insulin) dulaglutide 4.5 mg/0.5 mL 4.5 mg subcut SA diabetes 01/07/25 History subcutaneous pen injector (Trulicity) linaclotide 145 mcg capsule 145 mcg PO QAM IBS #30 cap s 12/13/24 12/29/24 Rx (Linzess) promethazine 25 mg tablet 25 mg PO Q6H PRN nausea and 01/01/25 Unknown Rx vomiting #25 tabs scopolamine base 1 mg over 3 days 1 patch transdermal Q3D PRN nausea 01/04/25 Unknown Rx transdermal patch and vomiting #4 ea Allergy/AdvReac Type Severity Reaction Status Date / Time No Known Allergies Allergy Verified 01/07/25 12:49 Family History Other Bleeding disorder Cancer Diabetes Hypertension Surgical History Hx of foot surgery Hx of foot surgery Social History Smoking Status: Former smoker alcohol intake: never substance use type: does not use what type of physical activity do you participate in: none ROS <MIGUEL A Ward - Last Filed: 01/07/25 16:04> ROS ED ROS Narrative Constitutional: Negative for fever, chills, malaise. GI: Negative for abdominal pain. Neuro: Negative for headache. EXAM <MIGUEL A Ward - Last Filed: 01/07/25 16:04> Physical Exam Narrative Exam Narrative: CONST: Patient awake crying in bed. EYES: Normal inspection. ENT: Normal inspection, moist mucous membranes. NECK: Normal inspection. RESP: No respiratory distress, CTAB. CVS: Regular rate and rhythm, no murmur, no gallop. ABD: Soft and nontender, no guarding or rebound, nondistended. SKIN: Color normal, no rash, warm, dry, intact. EXTREMITIES: Normal appearance, no pedal edema. NEURO: Alert and answering questions appropriately. PSYCH: Tearful. Const Vital Signs: 01/07/25 12:49 01/07/25 12:53 01/07/25 13:28 Temperature 97.7 F L Temperature Source Oral Pulse Rate 85 106 H Respiratory Rate 10 L Respiratory Pattern Normal Blood Pressure 133/92 H 118/82 H Blood Pressure Mean 105 94 Pulse Ox 100 99 Oxygen Delivery Method Room Air Room Air 01/07/25 13:30 01/07/25 14:00 01/07/25 14:30 Temperature 98 F Temperature Source Pulse Rate 102 H 92 84 Respiratory Rate 13 14 19 H Respiratory Pattern Blood Pressure 139/91 H 132/79 H 121/71 H Blood Pressure Mean 103 93 87 Pulse Ox 100 100 100 Oxygen Delivery Method 01/07/25 15:00 01/07/25 15:30 Temperature Temperature Source Pulse Rate 93 91 Respiratory Rate 16 19 H Respiratory Pattern Blood Pressure 124/88 H 133/90 H Blood Pressure Mean 98 102 Pulse Ox 100 100 Oxygen Delivery Method <Dr. Fabricio Guevara MD - Last Filed: 01/07/25 13:27> Physical Exam Const Vital Signs: 01/07/25 12:49 01/07/25 12:53 01/07/25 13:28 Temperature 97.7 F L Temperature Source Oral Pulse Rate 85 106 H Respiratory Rate 10 L Respiratory Pattern Normal Blood Pressure 133/92 H 118/82 H Blood Pressure Mean 105 94 Pulse Ox 100 99 Oxygen Delivery Method Room Air Room Air 01/07/25 13:30 01/07/25 14:00 01/07/25 14:30 Temperature 98 F Temperature Source Pulse Rate 102 H 92 84 Respiratory Rate 13 14 19 H Respiratory Pattern Blood Pressure 139/91 H 132/79 H 121/71 H Blood Pressure Mean 103 93 87 Pulse Ox 100 100 100 Oxygen Delivery Method 01/07/25 15:00 01/07/25 15:30 Temperature Temperature Source Pulse Rate 93 91 Respiratory Rate 16 19 H Respiratory Pattern Blood Pressure 124/88 H 133/90 H Blood Pressure Mean 98 102 Pulse Ox 100 100 Oxygen Delivery Method [facility] <MIGUEL A Ward - Last Filed: 01/07/25 16:04> [facility] Narrative Medical decision making narrative: Differential includes: insulin overdose, hypoglycemia, electrolyte derangement 34-year-old female with PMH of DM2, cyclical vomiting is suicidal and intentionally overdosed on insulin at 6 AM. She took Lantus 200 units and 1 full Trulicity pen. She arrives awake and alert. GCS 15. She is crying and anxious but has an otherwise benign exam. Her vital signs are normal. The documented respiratory rate of 10 but during my exam it is normal at 18. Fingerstick glucose was 71 and she was given orange juice and a food tray. Blood work was obtained. WBC is 16.0. Potassium is low at 2.8 and she was given p.o. replacement. Glucose is 85. negative. Alcohol level negative. Urine tox is positive for cannabinoids. Her blood sugars have been stable in the department after eating around 70s to 100s. I do think she requires further observation with the significant volume of insulin she took. Idiscussed the case with Dr. Coulter and she was admitted to the PCU. Patientwas also pink slipped since this was an intentional insulin overdose with intentto commit suicide and will have psychiatric evaluation while inpatient. I have personally performed a face to face assessment of the patient and have reviewed the DELLA Note. I performed a substantive portion of the visit including all aspects of the following. My saucedo findings include: History is 34-year-old female history of personality disorder. History of diabetes. States she has been have a lot of abdominal issues she has a history of PCOS and they are working up for possible gastroparesis. She is just had enough of it. This morning she took 200 units of insulin and Trulicity. This was in an attempt to overdose. This occurred around 6 AM. She denies any otheringestion. Exam is Medical Decision Making [34-year-old female with concern for attempted suicide by overdosing on insulin she is a known diabetic. Her initial blood sugar by squad was 91 currently at 71. She is awake and alert. Will give her food to eat. She is already drank orange juice with sugar in it. She will be observed most likely will need to be admitted to watch her sugars closely before she can be sent to a psychiatric facility.] Other additions or changes: [None] History & Record Review Additional record(s) reviewed:: Prior ED visit and Prior labs Lab Data Attestation: I reviewed the patient's lab results. Labs: Laboratory Results - last 24 hr 01/07/25 01/07/25 01/07/25 12:48 12:52 13:04 WBC 16.0 H RBC 4.75 Hgb 13.1 Hct 38.5 MCV 81.1 MCH 27.6 MCHC 34.0 RDW Std Deviation 42.3 RDW Coeff of John 14.6 Plt Count 477 H MPV 9.5 Immature Gran % (Auto) 0.600 Neut % (Auto) 63.9 Lymph % (Auto) 27.8 [place] % (Auto) 7.4 Eos % (Auto) 0.1 Baso % (Auto) 0.2 Absolute Neuts (auto) 10.2 H Absolute Lymphs (auto) 4.44 Nucleated RBC % 0 Sodium 136 Potassium 2.8 L Chloride 98 Carbon Dioxide 20.7 L Anion Gap 18 H BUN 11 Creatinine 1.10 Estim Creat Clear Calc 90.29 Est GFR (MDRD) Non-Af 68 BUN/Creatinine Ratio 10.4 Glucose 85 Calcium 9.1 Total Bilirubin 0.64 AST 35 H ALT 17 Alkaline Phosphatase 74 Total Protein 7.7 Albumin 3.9 Globulin 3.8 Albumin/Globulin Ratio 1.0 Serum , Qual NEGATIVE Urine Color Yellow Urine Clarity Sl. Cloudy Urine pH 6.0 Ur Specific [place] 1.015 Urine Protein 30 H Urine Glucose (UA) Normal Urine Ketones Negative Urine Occult Blood 250 H Urine Nitrite Negative Urine Bilirubin Negative Urine Urobilinogen Normal Ur Leukocyte Esterase 25 H Urine RBC 0-5 SEEN Urine WBC 5-10 SEEN Ur Squamous Epith Cells 0-5 SEEN Urine Bacteria 2+ Urine Mucus 1+ Urine Opiates Screen NEGATIVE U Buprenorphine Qual NEGATIVE Ur Oxycodone Screen NEGATIVE Urine Methadone Screen NEGATIVE Urine Fentanyl Screen NEGATIVE Ur Barbiturates Screen NEGATIVE Ur Phencyclidine Scrn NEGATIVE Ur Amphetamines Screen NEGATIVE U Benzodiazepines Scrn NEGATIVE Urine Cocaine Screen NEGATIVE U Cannabinoids Screen PRESUMPTIVE POSITIVE Ethyl Alcohol < 10.1 POC Glucose 71 L EKG Initial EKG: Attestation: I personally reviewed and interpreted this EKG as follows: Interpretation: Sinus Rhythm and No Acute Injury Pattern Comments: Normal sinus rhythm at 79 bpm Short ME interval 110 ms No acute ischemic changes Prior EKG appears similar but ME interval was 144 ms Prior EKG tracings: available for review <Dr. Fabricio Guevara MD - Last Filed: 01/07/25 13:27> [facility] Narrative Medical decision making narrative: I have personally performed a face to face assessment of the patient and have reviewed the DELLA Note. I performed a substantive portion of the visit including all aspects of the following. My saucedo findings include: History is 34-year-old female history of personality disorder. History of diabetes. States she has been have a lot of abdominal issues she has a history of PCOS and they are working up for possible gastroparesis. She is just had enough of it. This morning she took 200 units of insulin and Trulicity. This was in an attempt to overdose. This occurred around 6 AM. She denies any other ingestion. Exam is [34-year-old female vital signs stable afebrile. She does not look septic or toxic. No distress. She is anxious and tearful. She is hyperventilating when I am in the room. H EENT exam pupils round react to light. Moist pink membranes. Neck nontender. No JVD. No lymphadenopathy. Lungs clear to auscultation bilaterally. Heart regular rhythm rate about 85 no murmur. Chest wall ribs nontender. Abdomen soft nontender. Moving all 4 extremities. Nontender no edema. Back nontender. Neurologically she is awake alert. She is answering questions and following commands.] Medical Decision Making [34-year-old female with concern for attempted suicide by overdosing on insulin she is a known diabetic. Her initial blood sugar by squad was 91 currently at 71. She is awake and alert. Will give her food to eat. She is already drank orange juice with sugar in it. She will be observed most likely will need to be admitted to watch her sugars closely before she can be sent to a psychiatric facility.] Other additions or changes: [None] History & Record Review Discussion w/independent historian: Patient Additional record(s) reviewed:: Prior inpatient record and Prior outpatient record Lab Data Lab results narrative: CBC shows white count of 16. H&H of 13.1 and 38. Platelets 477. Labs: Laboratory Results - last 24 hr 01/07/25 01/07/25 01/07/25 12:48 12:52 13:04 WBC 16.0 H RBC 4.75 Hgb 13.1 Hct 38.5 MCV 81.1 MCH 27.6 MCHC 34.0 RDW Std Deviation 42.3 RDW Coeff of John 14.6 Plt Count 477 H MPV 9.5 Immature Gran % (Auto) 0.600 Neut % (Auto) 63.9 Lymph % (Auto) 27.8 [place] % (Auto) 7.4 Eos % (Auto) 0.1 Baso % (Auto) 0.2 Absolute Neuts (auto) 10.2 H Absolute Lymphs (auto) 4.44 Nucleated RBC % 0 Sodium 136 Potassium 2.8 L Chloride 98 Carbon Dioxide 20.7 L Anion Gap 18 H BUN 11 Creatinine 1.10 Estim Creat Clear Calc 90.29 Est GFR (MDRD) Non-Af 68 BUN/Creatinine Ratio 10.4 Glucose 85 Calcium 9.1 Total Bilirubin 0.64 AST 35 H ALT 17 Alkaline Phosphatase 74 Total Protein 7.7 Albumin 3.9 Globulin 3.8 Albumin/Globulin Ratio 1.0 Serum , Qual NEGATIVE Urine Color Yellow Urine Clarity Sl. Cloudy Urine pH 6.0 Ur Specific [place] 1.015 Urine Protein 30 H Urine Glucose (UA) Normal Urine Ketones Negative Urine Occult Blood 250 H Urine Nitrite Negative Urine Bilirubin Negative Urine Urobilinogen Normal Ur Leukocyte Esterase 25 H Urine RBC 0-5 SEEN Urine WBC 5-10 SEEN Ur Squamous Epith Cells 0-5 SEEN Urine Bacteria 2+ Urine Mucus 1+ Urine Opiates Screen NEGATIVE U Buprenorphine Qual NEGATIVE Ur Oxycodone Screen NEGATIVE Urine Methadone Screen NEGATIVE Urine Fentanyl Screen NEGATIVE Ur Barbiturates Screen NEGATIVE Ur Phencyclidine Scrn NEGATIVE Ur Amphetamines Screen NEGATIVE U Benzodiazepines Scrn NEGATIVE Urine Cocaine Screen NEGATIVE U Cannabinoids Screen PRESUMPTIVE POSITIVE Ethyl Alcohol < 10.1 POC Glucose 71 L Discharge Plan Dx/Rx/DC Orders Clinical Impression: Suicidal behavior, Insulin overdose, Hx of type 2 diabetes mellitus, Acute hypokalemia Disposition Disposition: Acute Care Hospital [facility] What to do if you have Problems For any increased pain, shortness of breath, bleeding, nausea or vomiting, chest pain, or any unexpected problems, contact your Primary Care Provider. Call [facility] ([phone]) or report to the closest Emergency Room. Call 911 if necessary. 01/07/25 1529 <Electronically signed by Fabricio Guevara MD> Cosigner Signature (if applicable): 01/07/25 1603 <Electronically signed by Rosetta GRADY> CC: [employer] Amy Solorzano ~ Signed [facility] Work Phone: [phone]) 745-384906-26-2025 Radiology Diagnostic study [facility]06-23-2025 [facility] History and physical note Author Dewayne Duff [facility] Note Date/Time January 01, 2025 6:02 am [facility] Medical Records Department [address] [place] [address] H&P Exam - Hospitalist 12/31/243 MR#: [id number] Acct: [id number] Name: GHISLAINE GIVENS Rep #:[id number] : 1990 34 From: Dewayne Solis DO PCP: BROOKLYN Warren, LINE MAINTENANCE-C Statu s:ADM IN Location: ICU CVICU20 3-1 [...] December 31, 2024 who now re-presents to [facility] ER complaining of hyperglycemia with intractable [...] that expected to extend beyond 2 midnights. [facility] Medical History Type 2 diabetes mellitus with [...] % (Auto) 64.4, Lymph % (Auto) 27.7, [place] % (Auto) 6.4, Eos % (Auto) 0.3, [...] Clarity Cloudy, Urine pH 6.0, Ur Specific [place] 1.020, Urine Protein 30 H, Urine Glucose [...] 75 minutes. Charges/Coding Visit Charges Inpatient E&M: 51021 Init Hosp L3 01/01/25 0602 <Electronically signed by Dewayne Grant DO> Cosigner Signature (if applicable): CC: [employer] Amy Solorzano; Dr. Dewayne Grant DO~ Signed [facility] Work Phone: [phone] 169-969406-23-2025 Discharge summary Author Poli Barfield [facility] Note Date/Time December 31, 2024 11:5 1pm [facility] Medical Records Department [address] [place] [address] Emergency Department Summary 12/31/24 MR#: [id number] Acct: [id number] Name: GHISLIANE GIVENS Rep #:[id number] : 1990 34 From: Poli Farah PCP: BROOKLYN Warren, [employer]TE[employer]NCE-C Statu s:ADM IN Location: ICU CVICU20 3-[address] Poli Barfield DO on 12/31/24 at 2351 EKG: Sinus rate of 82, no ST changes. QTc 422. 12/31/24 2351<Electronically signed by Poli Farah> Cosigner Signature (if applicable): cc: [employer] Amy Solorzano ~* Signed HPI History of [...] urinary symptoms. Prior similar symptoms: Yes PFSH [facility] Medical History (Updated 12/31/24 @ 23:07 by [...] clinician: Hospitalist This note was generated with 2 Minutes dictation software. It may contain incorrectwords, spelling, [...] % (Auto) 64.4 Lymph % (Auto) 27.7 [place] % (Auto) 6.4 Eos % (Auto) 0.3 [...] Clarity Cloudy Urine pH 6.0 Ur Specific [place] 1.020 Urine Protein 30 H Urine Glucose [...] (Auto) Neut % (Auto) Lymph % (Auto) [place] % (Auto) Eos % (Auto) Baso % (Auto) Absolute Neuts (auto) Absolute Lymphs (auto) Nucleated RBC % Sodium 139 Potassium 3.7 Chloride 108 Carbon Dioxide 18.2 L Anion Gap 13 BUN 7 Creatinine 0.85 Estim Creat Clear Calc 118.14 Est GFR (MDRD) Non-Af 93 BUN/Creatinine Ratio 8.0 L Glucose 177 H Calcium 8.2 b-Hydroxybutyric mmol/L Urine Color Urine Clarity Urine pH Ur Specific [place] Urine Protein Urine Glucose (UA) Urine Ketones [...] (excluding procedures): 30-74 minutes, Discussing w/Patient &/or Family/Financial Services Officer, Arranging Admission or Transfer, Performing Direct Patient [...] Care Provider: Amy Solorzano Referrals: Amy Solorzano, [employer] [Primary Care Provider] - Print Language: Citizen [place] Disposition Disposition: Acute Care Hospital [facility] What to do if you have Problems For any increased pain, shortness of breath, bleeding, nausea or vomiting, chestpain, or any unexpected problems, contact your Primary Care Provider. Call [facility] ([phone]) or report to the closest Emergency Room. Call 911 if necessary. 12/31/242306 <Electronically signed by Poli Farah> Cosigner Signature (if applicable): CC: [employer] Amy Solorzano ~ Signed [facility] Work Phone: [phone]) 739-716806-22-2025 Discharge summary Author Poli Barfield [facility] Note Date/Time December 31, 2024 11:0 7pm [facility] Medical Records Department [address] [place] [address] Emergency Department Summary 12/31/24 MR#: [id number] Acct: [id number] Name: GHISLAINE GIVENS Rep #:[id number] : 1990 34 From: Poli Farha PCP: BROOKLYN Warren, LINE MAINTENANCE-C Statu s:REG ER Location: ED HPI History [...] No urinary symptoms. Prior similar symptoms: [facility] Medical History (Updated 12/31/24 @ 23:07 by [...] clinician: Hospitalist This note was generated with 2 Minutes dictation software. It may contain incorrectwords, spelling, [...] % (Auto) 64.4 Lymph % (Auto) 27.7 [place] % (Auto) 6.4 Eos % (Auto) 0.3 [...] Clarity Cloudy Urine pH 6.0 Ur Specific [place] 1.020 Urine Protein 30 H Urine Glucose [...] (Auto) Neut % (Auto) Lymph % (Auto) [place] % (Auto) Eos % (Auto) Baso % (Auto) Absolute Neuts (auto) Absolute Lymphs (auto) Nucleated RBC % Sodium 139 Potassium 3.7 Chloride 108 Carbon Dioxide 18.2 L Anion Gap 13 BUN 7 Creatinine 0.85 Estim Creat Clear Calc 118.14 Est GFR (MDRD) Non-Af 93 BUN/Creatinine Ratio 8.0 L Glucose 177 H Calcium 8.2 b-Hydroxybutyric mmol/L Urine Color Urine Clarity Urine pH Ur Specific [place] Urine Protein Urine Glucose (UA) Urine Ketones [...] (excluding procedures): 30-74 minutes, Discussing w/Patient &/or Family/Financial Services Officer, Arranging Admission or Transfer, Performing Direct Patient [...] Care Provider: Amy Solorzano Referrals: Amy Solorzano, LINE MA[employer]TENANCE-C [Primary Care Provider] - Print Language: Citizen [place] Disposition Disposition: Acute Care Hospital [facility] What to do if you have Problems For any increased pain, shortness of breath, bleeding, nausea or vomiting, chestpain, or any unexpected problems, contact your Primary Care Provider. Call [facility] ([phone]) or report to the closest Emergency Room. Call 911 if necessary. 12/31/242306 <Electronically signed by Poli Farah> Cosigner Signature (if applicable): CC: [employer] [employer]C Amy Solorzano ~ Signed [facility] Work Phone: 1([phone]) 905-234206-22-2025 [facility] Discharge summary Author Poli Barfield [facility] Note Date/Time December 30, 2024 10:3 2pm [facility] Medical Records Department [address] [place] [address] Emergency Department Summary 12/30/24 MR#: [id number] Acct: [id number] Name: GHISLAINE GIVENS Rep #:[id number] : 1990 34 From: Poli Farah PCP: Amy Solorzano, Sara, LINE [employer]TENANCE-C Statu s:ADM IN Location: ICU CVICU20 3-1 [...] clinician: Hospitalist This note was generated with 2 Minutes dictation software. It may contain incorrectwords, spelling, [...] (Auto) 70.7 H Lymph % (Auto) 23.6 [place] % (Auto) 4.8 Eos % (Auto) 0.0 [...] Sl. Cloudy Urine pH 5.0 Ur Specific [place] 1.025 Urine Protein 30 H Urine Glucose [...] (excluding procedures): 30-74 minutes, Discussing w/Patient &/or Family/Financial Services Officer, Arranging Admission or Transfer, Performing Direct Patient Care at Bedside and - (35 minutes) Discharge Plan Dx/Rx/DC Orders Clinical Impression: Diabetic ketoacidosis, Cyclic vomiting syndrome, History of diabetes mellitus, ANI (acute kidney injury) Disposition Disposition: Acute Care Hospital [facility] Discharge Date/Time: 12/30/24 13:08 What to do if you have Problems For any increased pain, shortness of breath, bleeding, nausea or vomiting, chestpain, or any unexpected problems, contact your Primary Care Provider. Call [facility] ([phone]) or report to the closest Emergency Room. Call 911 if necessary. 12/30/24 4282 <Electronically signed by Poli Farah> Cosigner Signature (if applicable): CC: [employer] Amy Solorzano ~ Signed [facility] Work Phone: [phone]) 749-814706-21-2025 Discharge summary [facility] Medical Records Department [address] [place] [address] Emergency Department Summary 12/30/24 MR#: [id number] Acct: [id number] Name: GHISLAINE GIVENS Rep #:[id number] : 1990 34 From: Poli Farah PCP: Amy Solorzano, BROOK[place]N, LINE MAINTENANCE-C Statu s:ADM IN Location: ICU CVICU20 3-1 [...] clinician: Hospitalist This note was generated with 2 Minutes dictation software. It may contain incorrectwords, spelling, [...] (Auto) 70.7 H Lymph % (Auto) 23.6 [place] % (Auto) 4.8 Eos % (Auto) 0.0 [...] Sl. Cloudy Urine pH 5.0 Ur Specific [place] 1.025 Urine Protein 30 H Urine Glucose [...] (acute kidney injury) [facility] Date/Time: 12/30/24 13:08 What to do if you have Problems For any increased pain, shortness of breath, bleeding, nausea or vomiting, chestpain, or any unexpected problems, contact your Primary Care Provider. Call [facility] ([phone]) or report tothe closest Emergency Room. Call 911 if necessary. 12/30/242 Cosigner Signature (if applicable): CC: [employer] Aym Solorzano ~ Signed [facility]06-21-2025 History and physical note Author David Bain [facility] Note Date/Time December 30, 2024 1:09 pm [facility] Medical Records Department [address] [facility] [place] [address] H&P Exam - Hospitalist 12/30/24 1248 MR#: [id number] Acct: [id number] Name: GHISLAINE GIVENS Rep #:[id number] : 1990 34 From: David Gupta PCP: BROOKLYN Warren, LINE MAINTENANCE-Sara Statu s:ADM IN Location: ICU CVICU20 3-1 [...] DKA therefore admitted. Vitals in normal limit. [facility] Medical History Diabetes GERD (gastroesophageal reflux disease) [...] (Auto) 70.7 H, Lymph % (Auto) 23.6, [place] % (Auto) 4.8, Eos % (Auto) 0.0, [...] Sl. Cloudy, Urine pH 5.0, Ur Specific [place] 1.025, Urine Protein 30 H, Urine Glucose [...] for 2 weeks. Weight loss counseling done. Nuclear Medicine Officer consult DVT prophylaxis, low risk: Early ambulation encouraged Living will/advanced directive/end of life care: Patient does not have living will or advanced directive. She does not have the [facility] power of consumer attorney for health. After discussion of benefits/risks procedures involved with full code,DNR CC arrest and DNR CC, the patient opted for full code. Patient does want artificial life support including intubation, tube feed, ventilator and/chest compression, central venous catheter, vasopressor and DC shock if needed Total time spent in mhdr-[id number]-gmqz encounter in discussion of advanced directive 17 minutes. Charges/Coding Visit Charges Inpatient E&M: 28848 Init Hosp L3 Procedures Hospitalists Procedures: 73306 Advncd Care Plan 30 Min 12/30/24 1309 <Electronically signed by David Bain MD> Cosigner Signature (if applicable): CC: BROOKLYN LINE MAINTENANCE-C Amy Solorzano; Dr. David Bain MD~ Signed [facility] Work Phone: 1(163) 786-523606-21-2025 History and physical note [facility] Medical Records Department [address] [place] [address] H&P Exam - Hospitalist 12/30/24 1248 MR#: [id number] Acct: [id number] Name: GHISLAINE GIVENS Rep #:[id number] : 1990 34 From: David Gupta PCP: BROOKLYN Warren, LINE MAINTENANCE-C Statu s:ADM IN Location: ICU CVICU20 3-1 [...] DKA therefore admitted. Vitals in normal limit. [facility] Medical History Diabetes GERD (gastroesophageal reflux disease) [...] (Auto) 70.7 H, Lymph % (Auto) 23.6, [place] % (Auto) 4.8, Eos % (Auto) 0.0, [...] Sl. Cloudy, Urine pH 5.0, Ur Specific [place] 1.025, Urine Protein 30 H, Urine Glucose [...] for 2 weeks. Weight loss counseling done. Nuclear Medicine Officer consult DVT prophylaxis, low risk: Early ambulation encouraged Living will/advanced directive/end of life care: Patient does not have living will or advanced directive. She does not have the year power of consumer attorney for health. After discussion of benefits/risks procedures involved with full code,DNR CC arrest and DNR CC, the patient opted for full code. Patient does want artificial life support including intubation, tube feed, ventilator and/chest compression, central venous catheter, vasopressor and DC shock if needed Total time spent in bitm-fn-yuzf encounter in discussion of advanced directive 17 minutes. Charges/Coding Visit Charges Inpatient E&M: 65889 Init Hosp L3 Procedures Hospitalists Procedures: 40966 Advncd Care Plan 30 Min 12/30/24 1309 Cosigner Signature (if applicable): CC: Sara Solorzano; Dr. David Bain MD~ Signed [facility]06-16-2025 Radiology Diagnostic study note [facility] Imaging Services [address] [place] [address] Abdomen Limited MR#: [id number] Acct: [id number] Name: GHISLAINE GIVENS Rep #: [id number] : 1990 F 34 From: Yamila Mcginnis MD PCP: BROOKLYN Warren, LINE MAINTENANCEKaykay Status: REG CLI Study:Abdomen Limited Date of Exam: 12/10 01/03 Exam# [id number] Ordering Dr: Nayana Peter PROCEDURE: ABDOMEN LIMITED [...] acute cholecystitis. [facility] CC: Sara Solorzano; MIGUEL A South ~ [place] Worker Helper: Signed [facility]05-20-2025 Discharge summary [facility] Medical Records Department [address] [place] [address] Discharge Summary 11/28/24 1203 MR#: [id number] Acct: [id number] Name: GHISLAINE GIVENS Rep #:[id number] : 1990 34 From: Gale Lr DO PCP: BROOKLYN Warren, PATRICE Statu s:ADM IN [facility] Providers Date of Admission: 11/25/24 Date of [...] who presented to the emergency department at [facility] on 11/25/2024 with a chief complaint [...] (Auto) 49.8, Lymph % (Auto) 43.0 H, [place] % (Auto) 5.3, Eos % (Auto) 0.5, [...] to prior study. Reading Location: [place] [address] D/C Instructions Discharge Diet: 1800 Calorie Control [...] Gale Lr Primary Care Provider: Amy Solorzano [facility] Consulting Providers: Annalise Welch; Brenda Rao [...] tomorrow to set up appointment) Amy Solorzano, LINE MAINTENANCE-C [Primary Care Provider] - In 1 Week Disposition Disposition (needs filled in before D/C Order can be placed): Home, Self Care Charges/Coding Visit Charges Inpatient E&M: 73393 Disch Hosp >30min 11/28/24 1231 Cosigner Signature (if applicable): CC: BROOKLYN TINAJEROC Amy Solorzano; Dr. Gale Lr DO~ Signed [facility]05-20-20[facility] Progress note Author Clare Loo [facility] Note Date/Time November 28, 2024 8:41a m [facility] Medical Records Department [address] [place] [address] Progress Note - Surgery 11/28/24 0757 MR#: [id number] Acct: [id number] Name: GHISLAINE GIVENS Rep #:[id number] : 1990 34 From: Clare GRADY PA-C PCP: BROOKLYN Warren, LINE MAINTENANCE-C Statu s:ADM IN Location: MS3 NH035-0 Subjective Subjective Patient was walking the hallway [...] (Auto) 49.8, Lymph % (Auto) 43.0 H, [place] % (Auto) 5.3, Eos % (Auto) 0.5, [...] to prior study. Reading Location: [place] [address] Physical Exam GI GI Narrative: Abdomen- soft, [...] 1 week Charges/Coding Visit Charges Inpatient E&M: 72919 Subs Hosp L2 11/28/24 0841 <Electronically signed by Clare GRADY PA-C> Cosigner Signature (if applicable): CC: ~ Signed [facility] Work Phone: 1(922) 643-950605-20-2025 Progress note [facility] Medical Records Department [address] [facility] [place] [address] Progress Note - Surgery 11/28/247 MR#: [id number] Acct: [id number] Name: GHISLAINE GIVENS Rep #:[id number] : 1990 34 From: Clare GRADY PA-C PCP: BROOKLYN Warren, LINE MAINTENANCE-C Statu s:ADM IN [place] [facility] [place] BA842-9 Subjective Subjective Patient was walking the hallway [...] (Auto) 49.8, Lymph % (Auto) 43.0 H, [place] % (Auto) 5.3, Eos % (Auto) 0.5, [...] as compared to prior study. Reading Location: [facility] Physical Exam GI GI Narrative: Abdomen- soft, [...] 1 week Charges/Coding Visit Charges Inpatient E&M: 31455 Subs Hosp L2 11/28/24 0841 Cosigner Signature (if applicable): CC: ~ Signed [facility]05-19-2025 Progress note Author Gale Lr [facility] Note Date/Time November 27, 2024 3:45p m [facility] Medical Records Department [address] [place] [address] Progress Note - Hospitalist 11/27/24 0759 MR#: [id number] Acct: [id number] Name: GHISLAINE GIVENS Rep #:[id number] : 1990 34 From: Gale Lr DO PCP: BROOKLYN Warren, LINE MAINTENANCE-C Statu s:ADM IN Location: MS3 BE526-0 Reason for Visit Reason for Visit: Abdominal [...] (Auto) 75.9 H, Lymph % (Auto) 18.1L, [place] % (Auto) 5.2, Eos % (Auto) 0.0, [...] fecal impaction of the rectum. Reading Location: [facility] Physical Exam Const alert, oriented x3 and [...] cessation discussed with patient Acute proctitis/colitis - Cool to be stercoral colitis from severe constipation [...] Full code Charges/Coding Visit Charges Inpatient E&M: 91079 Subs Hosp L2 11/27/24 5477 <Electronically signed by Gale Lr DO> Cosigner Signature (if applicable): CC: ~ Signed [facility] Work Phone: 1(961) 350-460405-19-2025 Progress note Author Clare Loo [facility] Note Date/Time November 27, 2024 2:35p m [facility] Medical Records Department [address] [place] [address] Progress Note - Surgery 11/27/24 0845 MR#: [id number] Acct: [id number] Name: GHISLAINE GIVENS Rep #:[id number] : 1990 34 From: Clare GRADY PA-C PCP: BROOKLYN Warren, LINE MAINTENANCE-C Statu s:ADM IN Location: MS3 BC130-8 Subjective Subjective Patient evaluated rolling restlessly in [...] (Auto) 75.9 H, Lymph % (Auto) 18.1L, [place] % (Auto) 5.2, Eos % (Auto) 0.0, [...] this patient Charges/Coding Visit Charges Inpatient E&M: 62795 Subs Hosp L2 11/27/24 0853 <Electronically signed [...] Cosigner Signature (if applicable): cc: ~* Signed [facility] Work Phone: 1(827) 159-248005-19-2025 Progress note [facility] Medical Records Department [address] [place] [address] Progress Note - Hospitalist 11/27/24 8718 MR#: [id number] Acct: [id number] Name: GHISLAINE GIVENS Rep #:[id number] : 1990 34 From: Gale Lr DO PCP: BROOKLYN Warren, LINE MAINTENANCE-C Statu s:ADM IN Location: HI3 XY868-9 Reason for Visit Reason for Visit: Abdominal [...] (Auto) 75.9 H, Lymph % (Auto) 18.1L, [place] % (Auto) 5.2, Eos % (Auto) 0.0, [...] impaction of the rectum. Reading Location: [facility] Physical Exam Const alert, oriented x3 and [...] cessation discussed with patient Acute proctitis/colitis - Cool to be stercoral colitis from severe constipation [...] Full code Charges/Coding Visit Charges Inpatient E&M: 67641 Subs Hosp L2 11/27/24 1545 Cosigner Signature (if applicable): CC: ~ Signed [facility]05-19-2025 Progress note [facility] Medical Records Department [address] [place] [address] Progress Note - Surgery 11/27/24 0845 MR#: [id number] Acct: [id number] Name: GHISLAINE GIVENS Rep #:[id number] : 1990 34 From: Clare GRADY PA-C PCP: BROOKLYN Warren, LINE MAINTENANCE-C Statu s:ADM IN Location: MS3 PN194-0 Subjective Subjective Patient evaluated rolling restlessly in [...] (Auto) 75.9 H, Lymph % (Auto) 18.1L, [place] % (Auto) 5.2, Eos % (Auto) 0.0, [...] this patient Charges/Coding Visit Charges Inpatient E&M: 12279 Subs Hosp L2 11/27/24 0853 Cosigner Signature [...] Cosigner Signature (if applicable): cc: ~* Signed [facility]05-19-2025 Radiology Diagnostic study note [facility] Imaging Services [address] [place] [address] Abdomen/Pelvis WITH Contrast MR#: [id number] Acct: [id number] Name: GHISLAINE GIVENS Rep #: [id number] : 1990 F 34 From: Fortino Sadler MD PCP: BROOKLYN Warren, LINE MAINTENANCE-C Status: ADM IN Study:Abdomen/Pelvis WITH Contrast Date of Ex am: 11/27/24 Exam# [id number] Ordering Dr: Clare Loo PA-C PROCEDURE: ABDOMEN/PELVIS [...] to prior study. Reading Location: [place] [address] CC: ESCOBAR Loo; BROOKLYN Solorzano ~ [place] Worker Helper: Signed [facility]05-18-2025 Progress note Author Brenda [facility] Note Date/Time November 26, 2024 9:20a m [facility] Medical Records Department [address] [place] [address] Progress Note 11/26/24 0909 MR#: [id number] Acct: [id number] Name: GHISLAINE GIVENS Rep #:[id number] : 1990 34 From: Brenda Rao MD PCP: BROOKLYN Warren, PATRICE Statu s:ADM IN Location: HI3 AH869-5 Subjective Subjective Patient seen and examined. She [...] 79.5 H, Lymph % (Auto) 11.4 L, [place] % (Auto) 8.0, Eos % (Auto) 0.1, [...] Clarity Cloudy, Urine pH 6.0, Ur Specific [place] 1.025, Urine Protein 30 H, Urine Glucose [...] (Auto) 73.4 H, Lymph % (Auto) 19.4, [place] % (Auto) 6.2, Eos % (Auto) 0.2, [...] the colon consistent with constipation. Reading Location: [facility] Abdomen/Pelvis CT 11/25/24 11:32 IMPRESSION: 1. Fecal impaction with apparent wall thickening of the distal colon and rectumsuggesting proctitis and colitis. Clinical correlation is recommended. 2. Hepatomegaly with fatty infiltration. Reading Location: [facility] KUB X-Ray 11/26/24 08:10 IMPRESSION: Constipation with suggestion of fecal impaction of the rectum. Reading Location: [facility] Physical Exam Const alert and oriented x3 [...] Full code Charges/Coding Visit Charges Inpatient E&M: 88306 Subs Hosp L2 11/26/24 0920 <Electronically signed by Brenda Rao MD> Brenda aRo MD Cosigner Signature (if applicable): CC: ~ Signed [facility] Work Phone: 1(294) 399-354805-18-2025 History and physical note Author Brenda Sravandaphne [facility] Note Date/Time November 26, 2024 7:54a m [facility] Medical Records Department [address] [place] [address] H&P Exam - Hospitalist 11/25/24 1324 MR#: [id number] Acct: [id number] Name: GHISLAINE GIVENS Rep #:[id number] : 1990 34 From: Brenda Rao MD PCP: Amy Solorzano, Sara, LINE MAINTENANCE-C Statu s:ADM IN [place] [facility] HW018-5 HPI - General General Date of Admission: [...] of severe constipation with likely overflow diarrhea. [facility] Medical History (Updated 11/25/24 @ [...] 79.5 H, Lymph % (Auto) 11.4 L, [place] % (Auto) 8.0, Eos % (Auto) 0.1, [...] Clarity Cloudy, Urine pH 6.0, Ur Specific [place] 1.025, Urine Protein 30 H, Urine Glucose [...] colon consistent with constipation. Reading Location: [facility] Abdomen/Pelvis CT 11/25/24 11:32 IMPRESSION: 1. Fecal impaction with apparent wall thickening of the distal colon and rectumsuggesting proctitis and colitis. Clinical correlation is recommended. 2. Hepatomegaly with fatty infiltration. Reading Location: [facility] Assessment & Plan Assessment/Plan (1) Colitis: (2) Acute proctitis: (3) Fecal impaction: PLAN: Plan # Stercoral proctocolitis with overflow diarrhea in the setting of severe constipation with fecal impaction * Admit to [facility]. Admitted with a complaint of abdominal pain. [...] Full code Charges/Coding Visit Charges Inpatient E&M: 61484 Init Hosp L2 11/26/24 0752 <Electronically signed by Brenda Rao MD> Cosigner Signature (if applicable): CC: BROOKLYN LINE MAINTENANCE-C Amy Solorzano; Dr. Brenda Rao MD~ Signed [facility] Work Phone: 1(967) 599-972505-18-2025 Consult note Author Annalisesocorro Welch [facility] Note Date/Time November 26, 2024 7:47a m [facility] Medical Records Department [address] [place] [address] Consultation - Surgical 11/25/242050 MR#: [id number] Acct: [id number] Name: GHISLAINE GIVENS Rep #:[id number] : 1990 34 From: Annalise Welch MD PCP: BROOKLYN Warren, LINE MAINTENANCE-C Statu s:ADM IN Location: HI3 KA345-4 Assessment & Plan Assessment/Plan (1) Fecal impaction: (2) Acute proctitis: PLAN: Plan Discussed with patient would recommend additional enema to help soften the bowelof stool in the rectum. Along with additional ones after that. Continue IV Zosyn Discussed with patient plan to DC with laxatives. Annalise Welch M.D. Pager: [phone] [facility] [address] [place] [address], Outpatient [place], [address] [place] [id number] Office: [phone] HPI Consult Data Date of Consult: 11/26/24 [...] and did have some results with it. [facility] Medical History (Updated 11/25/24 @ [...] 79.5 H, Lymph % (Auto) 11.4 L, [place] % (Auto) 8.0, Eos % (Auto) 0.1, [...] Clarity Cloudy, Urine pH 6.0, Ur Specific [place] 1.025, Urine Protein 30 H, Urine Glucose [...] colon consistent with constipation. Reading Location: [facility] Abdomen/Pelvis CT 11/25/24 11:32 IMPRESSION: 1. Fecal impaction with apparent wall thickening of the distal colon and rectumsuggesting proctitis and colitis. Clinical correlation is recommended. 2. Hepatomegaly with fatty infiltration. Reading Location: [facility] Charges/Coding Visit Charges Inpatient E&M: 27866 Init Hosp L3 11/26/24 0747 <Electronically signed by Annalise Welch MD> Cosigner Signature (if applicable): CC: BROOKLYN LINE MAINTENANCEKaykay Solorzano~ Signed [facility] Work Phone: 1(535) 815-683405-18-2025 Progress note Author Annalise Welch [facility] Note Date/Time November 26, 2024 7:47a m [facility] Medical Records Department [address] [place] [address] Progress Note - Surgery 11/26/2441 MR#: [id number] Acct: [id number] Name: GHISLAINE GIVENS Rep #:[id number] : 1990 34 From: Annalise Welch MD PCP: Amy Solorzano Sara, LINE MAINTENANCE-C Statu s:ADM IN Location: MS3 WJ407-3 Subjective Subjective Patient states she did have [...] 79.5 H, Lymph % (Auto) 11.4 L, [place] % (Auto) 8.0, Eos % (Auto) 0.1, [...] Clarity Cloudy, Urine pH 6.0, Ur Specific [place] 1.025, Urine Protein 30 H, Urine Glucose [...] (Auto) 73.4 H, Lymph % (Auto) 19.4, [place] % (Auto) 6.2, Eos % (Auto) 0.2, [...] the colon consistent with constipation. Reading Location: [facility] Abdomen/Pelvis CT 11/25/24 11:32 IMPRESSION: 1. Fecal impaction with apparent wall thickening of the distal colon and rectumsuggesting proctitis and colitis. Clinical correlation is recommended. 2. Hepatomegaly with fatty infiltration. Reading Location: [facility] Physical Exam Const oriented x3 and no [...] improved from 27-17. Annalise Welch M.D. Pager: [phone] [facility] [address] [place] [address], Outpatient [facility], [address] [place] [address] Office: [phone] Charges/Coding Multi Select Codes Visit Charges Visit Charges: 58308 Subs Hosp L2 11/26/24 0747 <Electronically signed by Annalise Welch MD> Cosigner Signature (if applicable): CC: ~ Signed [facility] Work Phone: 1(363) 978-470305-18-2025 Progress note [facility] Medical Records Department [address] [place] [address] Progress Note 11/26/24 0909 MR#: [id number] Acct: [id number] Name: GHISLAINE GIVENS Rep #:[id number] : 1990 34 From: Brenda Rao MD PCP: BROOKLYN Warren, LINE MAINTENANCE-C Statu s:ADM IN Location: MS3 VK097-8 Subjective Subjective Patient seen and examined. She [...] 79.5 H, Lymph % (Auto) 11.4 L, [place] % (Auto) 8.0, Eos % (Auto) 0.1, [...] Clarity Cloudy, Urine pH 6.0, Ur Specific [place] 1.025, Urine Protein 30 H, Urine Glucose (UA) Normal, Urine Ketones 5 H, Urine Occult Blood 25 H, Urine Nitrite Negative, Urine Bilirubin 1 H, Urine Urobilinogen 1 H, Ur Leukocyte Esterase Negative, Urine RBC 0-5 SEEN, Urine WBC 0-5 SEEN, Ur Squamous Epith Cells 0-5 SEEN, Amorphous Sediment 2+ URATE, UrineBacteria 0 SEEN, Hyaline Casts 0-5 SEEN, Urine Mucus 0 SEEN 0517/25 12:16: Lactic Acid 1.5 11/25/24 17:53: POC [...] (Auto) 73.4 H, Lymph % (Auto) 19.4, [place] % (Auto) 6.2, Eos % (Auto) 0.2, [...] the colon consistent with constipation. Reading Location: [facility] Abdomen/Pelvis CT 11/25/24 11:32 IMPRESSION: 1. Fecal impaction with apparent wall thickening of the distal colon and rectumsuggesting proctitisand colitis. Clinical correlation is recommended. 2. Hepatomegaly with fatty infiltration. Reading Location: [facility] KUB X-Ray 11/26/24 08:10 IMPRESSION: Constipation with suggestion of fecal impaction of the rectum. Reading Location: [facility] Physical Exam Const alert and oriented x3 [...] Full code Charges/Coding Visit Charges Inpatient E&M: 56741 Subs Hosp L2 11/26/24 1551 Brenda Rao MD Cosigner Signature (if applicable): CC: ~ Signed [facility]05-18-2025 Radiology Diagnostic study note [facility] Imaging Services [address] [place], [place] [address] Abdomen Single View MR#: [id number] Acct: [id number] Name: GHISLAINE GIVENS Rep #: [id number] : 1990 F 34 From: Alicja Barfield MD PCP: BROOKLYN Warren, LINE MAINTENANCE-C Status: ADM IN Study:Abdomen Single View Date of Exam: 11/26/24 Exam# [id number] Ordering Dr: Annalise Welch MD EXAM: XR Abdomen, 1 View CLINICAL INDICATION: FECAL IMPACTION-RECTUM TECHNIQUE: Frontal supine view of the abdomen/pelvis. COMPARISON: No relevant prior studies available. FINDINGS: GASTROINTESTINAL TRACT: Constipation with suggestion of fecal impaction of the rectum. No dilation. BONES/JOINTS: Unremarkable. No acute fracture. RAD/Abdomen Single View IMPRESSION: Constipation with suggestion of fecal impaction of the rectum. Reading Location: [facility] CC: [facility] LINE MAINTENANCE-C Amy Solorzano; Dr. Annalise Welch MD ~ [place] Worker Helper: Signed [facility]05-18-2025 History and physical note [facility] Medical Records Department [address] [place] [address] H&P Exam - Hospitalist 11/25/24 1324 MR#: [id number] Acct: [id number] Name: GHISLAINE GIVENS Rep #:[id number] : 1990 34 From: Brenda Rao MD PCP: BROOKLYN Warren, LINE MAINTENANCE-C Statu s:ADM IN [place] [facility] [place] AM956-8 HPI - General General Date of Admission: [...] of severe constipation with likely overflow diarrhea. [facility] Medical History (Updated 11/25/24 @ [...] 79.5 H, Lymph % (Auto) 11.4 L, [place] % (Auto) 8.0, Eos % (Auto) 0.1, [...] Clarity Cloudy, Urine pH 6.0, Ur Specific [place] 1.025, Urine Protein 30 H, Urine Glucose [...] colon consistent with constipation. Reading Location: [facility] Abdomen/Pelvis CT 11/25/24 11:32 IMPRESSION: 1. Fecal impaction with apparent wall thickening of the distal colon and rectumsuggesting proctitisand colitis. Clinical correlation is recommended. 2. Hepatomegaly with fatty infiltration. Reading Location: [facility] Assessment & Plan Assessment/Plan (1) Colitis: (2) Acute proctitis: (3) Fecal impaction: PLAN: Plan # Stercoral proctocolitis with overflow diarrhea in the setting of severe constipation with fecal impaction * Admit to [facility]. Admitted with a complaint of abdominal pain. [...] Full code Charges/Coding Visit Charges Inpatient E&M: 79379 Init Hosp L2 11/26/24 5081 Cosigner Signature (if applicable): CC: [facility] PATRICE Solorzano; Dr. Brenda Rao MD~ Signed [facility]05-18-2025 Consult note [facility] Medical Records Department [address] [place] [address] Consultation - Surgical 11/25/242050 MR#: [id number] Acct: [id number] Name: GHISLAINE GIVENS Rep #:[id number] : 1990 34 From: Annalise Welch MD PCP: Amy Solorzano, C, LINE MAINTENANCE-C Statu s:ADM IN Location: [place] [address]-1 Assessment & Plan Assessment/Plan (1) Fecal impaction: (2) Acute proctitis: PLAN: Plan Discussed with patient would recommend additional enema to help soften the bowelof stool in the rectum. Along with additional ones after that. Continue IV Zosyn Discussed with patient plan to DC with laxatives. Annalise Welch M.D. Pager: [phone] [facility] [address] [place] [address], [facility], [address] [place] [address] Office: [phone] HPI Consult Data Date of Consult: 11/26/24 [...] ER and did havesome results with it. [facility] Medical History (Updated 11/25/24 @ [...] 79.5 H, Lymph % (Auto) 11.4 L, [place] % (Auto) 8.0, Eos % (Auto) 0.1, [...] Clarity Cloudy, Urine pH 6.0, Ur Specific [place] 1.025, Urine Protein 30 H, Urine Glucose [...] the colon consistent with constipation. Reading Location: [facility] Abdomen/Pelvis CT 11/25/24 11:32 IMPRESSION: 1. Fecal impaction with apparent wall thickening of the distal colon and rectumsuggesting proctitisand colitis. Clinical correlation is recommended. 2. Hepatomegaly with fatty infiltration. Reading Location: [facility] Charges/Coding Visit Charges Inpatient E&M: 10152 Init Hosp L3 11/26/24 0747 Cosigner Signature (if applicable): CC: BROOKLYN LINE MAINTENANCEKaykay Solorzano~ Signed [facility]05-18-2025 Progress note [facility] Medical Records Department [address] [place] [address] Progress Note - Surgery 11/26/24 0741 MR#: [id number] Acct: [id number] Name: GHISLAINE GIVENS Rep #:[id number] : 1990 34 From: Annalise Welch MD PCP: BROOKLYN Warren, LINE MAINTENANCE-Sara Statu s:ADM IN Location: MS3 JY906-0 Subjective Subjective Patient states she did have [...] 79.5 H, Lymph % (Auto) 11.4 L, [place] % (Auto) 8.0, Eos % (Auto) 0.1, [...] Clarity Cloudy, Urine pH 6.0, Ur Specific [place] 1.025, Urine Protein 30 H, Urine Glucose [...] (Auto) 73.4 H, Lymph % (Auto) 19.4, [place] % (Auto) 6.2, Eos % (Auto) 0.2, [...] the colon consistent with constipation. Reading Location: [facility] Abdomen/Pelvis CT 11/25/24 11:32 IMPRESSION: 1. Fecal impaction with apparent wall thickening of the distal colon and rectumsuggesting proctitisand colitis. Clinical correlation is recommended. 2. Hepatomegaly with fatty infiltration. Reading Location: [facility] Physical Exam Const oriented x3 and no [...] improved from 27-17. Annalise Welch M.D. Pager: [phone] [facility] [address] [place] [address], [facility], [address] [place] [address] Office: [phone] Charges/Coding Multi Select Codes Visit Charges Visit Charges: 88719 Subs Hosp L2 11/26/24 0747 Cosigner Signature (if applicable): CC: ~ Signed [facility]05-17-2025 Discharge summary Author Drew Hinson [facility] Note Date/Time November 25, 2024 1:45p m [facility] Medical Records Department [address] [place], [place] [id number] Emergency Department Summary 11/25/24 MR#: [id number] Acct: [id number] Name: CHONGHISLAINE VERENICE Rep #:[id number] : 1990 34 From: Drew Hinson MD PCP: Amy Solorzano [facility], LINE MAINTENANCE-C Statu s:REG ER Location: ED HPI HPI [...] this diagnosis. No exacerbating or alleviating factors. [facility] Medical History Wears glasses History [...] 79.5 H Lymph % (Auto) 11.4 L [place] % (Auto) 8.0 Eos % (Auto) 0.1 [...] Clarity Cloudy Urine pH 6.0 Ur Specific [place] 1.025 Urine Protein 30 H Urine Glucose [...] the colon consistent with constipation. Reading Location: [facility] Abdomen/Pelvis CT 11/25/24 11:32 IMPRESSION: 1. Fecal impaction with apparent wall thickening of the distal colon and rectumsuggesting proctitis and colitis. Clinical correlation is recommended. 2. Hepatomegaly with fatty infiltration. Reading Location: [facility] Management Discussion w/another healthcare provider: Hospitalist (Dr. Rao) and Comp Field Case Manager(Dr. Welch) Discharge Plan Dx/Rx/DC Orders Clinical Impression: Fecal impaction, Acute proctitis, Colitis Disposition Disposition: [facility] What to do if you have Problems For any increased pain, shortness of breath, bleeding, nausea or vomiting, chestpain, or any unexpected problems, contact your Primary Care Provider. Call [facility] ([phone]) or report to the closest Emergency Room. Call 911 if necessary. 11/25/24 1345 <Electronically signed by Drew Hinson MD> Cosigner Signature (if applicable): CC: [facility] LINE MAINTENANCE-Sara Solorzano ~ Signed [facility] Work Phone: 1(944) 464-625805-17-2025 Evaluation note* Diagnosis Onset Date Resolution Status Admit Date Abdominal pain acute November 25, 2024 1:38pm Acute proctitis acute November 25, 2024 1:38pm Colitis acute November 25, 2024 1:38pm Diabetes acute November 25, 2024 1:38pm Fecal impaction acute November 25, 2024 1:38pm Nausea & vomiting acute November 1:38pm [facility] Work Phone: 1([phone]) 461-202005-17-2025 Evaluation note* Diagnosis Onset Date Resolution Status [...] December 7:52am Constipation noneactive December 13 7:52am [facility] Work Phone: 1(817) 227-147705-17-2025 Evaluation note* Diagnosis Onset Date Resolution Status [...] 2024 12:28pm Diabetic ketoacidosis acute Dec 12:28pm [facility] Work Phone: 1(783) 461-957105-17-2025 Evaluation note* Diagnosis Onset Date Resolution Status [...] Ju 2024 10:59pm Obesity (BMI 30-39.9) acute Addison e 2024 10:59pm Type 2 diabetes mellitus wit h peripheral neuropathy acute December 31, 2024 10:59pm [facility] Work Phone: 1(314) 389-282205-17-2025 Evaluation note* Diagnosis Onset Date Resolution Status [...] peripheral neuropathy acute December 31, 2024 10:59pm [facility] Work Phone: 1(846) 768-254905-17-2025 Evaluation note* Diagnosis Onset Date Resolution Status [...] 2024 10:59pm Obesity (BMI 30-39.9) inactive Addison 2024 10:59pm Type 2 diabetes mellitus wit h peripheral neuropathy inactive December 31, 2024 10:59pm [facility] Work Phone: 1([phone]) 732-254505-17-2025 Evaluation note* Diagnosis Onset Date Resolution Status [...] 2024 10:59pm Obesity (BMI 30-39.9) inactive Addison 2024 10:59pm Type 2 diabetes mellitus wit h peripheral neuropathy inactive December 31, 2024 10:59pm Acute hypokalemia acute January 072024 3:24pm Hx of type 2 diabetes mellitus acute January 07, 2025 3:24pm Insulin overdose acute December 3:24pm Suicidal behavior acute January 072024 3:24pm [facility] Work Phone: 1(823) 451-548405-17-2025 Discharge summary Author Drew Hinson [facility] Note Date/Time November 25, 2024 1:45p m [facility] Medical Records Department [address] [place] [address] Emergency Department Summary 11/25/24 MR#: [id number] Acct: [id number] Name: GHISLAINE GIVENS Rep #:[id number] : 1990 34 From: Drew Hinson MD PCP: Amy Solorzano, [facility], LINE MAINTENANCE-C Statu s:REG ER Location: ED HPI HPI [...] this diagnosis. No exacerbating or alleviating factors. [facility] Medical History Wears glasses History [...] 79.5 H Lymph % (Auto) 11.4 L [place] % (Auto) 8.0 Eos % (Auto) 0.1 [...] Clarity Cloudy Urine pH 6.0 Ur Specific [place] 1.025 Urine Protein 30 H Urine Glucose [...] the colon consistent with constipation. Reading Location: [facility] Abdomen/Pelvis CT 11/25/24 11:32 IMPRESSION: 1. Fecal impaction with apparent wall thickening of the distal colon and rectumsuggesting proctitis and colitis. Clinical correlation is recommended. 2. Hepatomegaly with fatty infiltration. Reading Location: [facility] Management Discussion w/another healthcare provider: Hospitalist (Dr. Rao) and Comp Field Case Manager(Dr. Welch) Discharge Plan Dx/Rx/DC Orders Clinical Impression: Fecal impaction, Acute proctitis, Colitis Disposition Disposition: Acute Care Hospital [facility] What to do if you have Problems For any increased pain, shortness of breath, bleeding, nausea or vomiting, chestpain, or any unexpected problems, contact your Primary Care Provider. Call [facility] ([phone]) or report to the closest Emergency Room. Call 911 if necessary. 11/25/24 1345 <Electronically signed by Drew Hinson MD> Cosigner Signature (if applicable): CC: [facility] LINE MAINTENANCE-C Amy Solorzano ~ Signed [facility] Work Phone: 1(821) 519-377005-17-2025 Discharge summary [facility] Medical Records Department [address] [place] [address] Emergency Department Summary 11/25/24 MR#: [id number] Acct: [id number] Name: GHISLAINE GIVENS Rep #:[id number] : 1990 34 From: Drew Hinson MD PCP: [facility], LINE MAINTENANCE-C Statu s:REG ER Location: ED HPI HPI [...] confirm this diagnosis. Noexacerbating or alleviating factors. [facility] Medical History Wears glasses History [...] 79.5 H Lymph % (Auto) 11.4 L [place] % (Auto) 8.0 Eos % (Auto) 0.1 [...] Clarity Cloudy Urine pH 6.0 Ur Specific [place] 1.025 Urine Protein 30 H Urine Glucose [...] colon consistent with constipation. Reading Location: [facility] Abdomen/Pelvis CT 11/25/24 11:32 IMPRESSION: 1. Fecal impaction with apparent wall thickening of the distal colon and rectumsuggesting proctitisand colitis. Clinical correlation is recommended. 2. Hepatomegaly with fatty infiltration. Reading Location: [facility] Management Discussion w/another healthcare provider: Hospitalist (Dr. Rao) and Comp Field Case Manager(Dr. Welch) Discharge Plan Dx/Rx/DC Orders Clinical Impression: Fecal impaction, Acute proctitis, Colitis Disposition Disposition: Acute Care Hospital [facility] What to do if you have Problems For any increased pain, shortness of breath, bleeding, nausea or vomiting, chestpain, or any unexpected problems, contact your Primary Care Provider. Call [facility] ([phone]) or report tothe closest Emergency Room. Call 911 if necessary. 11/25/24 1345 Cosigner Signature (if applicable): CC: [facility] LINE MAINTENANCEPanC Amy Solorzano ~ Signed [facility]05-17-2025 Radiology Diagnostic study note [facility] Imaging Services [address] [place] [address] Abdomen/Pelvis W IV Cont ONLY MR#: [id number] Acct: [id number] Name: GHISLAINE GIVESN Rep #: [id number] : 1990 F 34 From: Alicja Barfield MD PCP: Amy Solorzano, [facility], LINE MAINTENANCE-C Status: REG ER Study:Abdomen/Pelvis W IV Cont ONLY Date of E xam: 11/25/24 Exam# [id number] Ordering Dr: Drew Hinson MD EXAM: CT [...] 2. Hepatomegaly with fatty infiltration. Reading Location: [facility] CC: [facility] LINE MAINTENANCE-C Amy Solorzano; Dr. Drew Hinson MD ~ Barrow Worker Helper: Signed [facility]05-17-2025 Radiology Diagnostic study note [facility] Imaging Services [address] [place] [address] Acute Abdomen Inc Chest MR#: [id number] Acct: [id number] Name: GHISLAINE GIVENS Rep #: [id number] : 1990 F 34 From: Alicja Barfield MD PCP: Amy Solorzano [facility], LINE MAINTENANCE-C Status: REG ER Study:Acute Abdomen Inc Chest Date of Exam: 11/25/24 Exam# [id number] Ordering Dr: Drew Hinson MD EXAM: XR [...] the colon consistent with constipation. Reading Location: [facility] CC: [facility] LINE MAINTENANCE-C Amy Solorzano; Dr. Drew Hinson MD ~ [place]arrow Worker Helper: Signed [facility]12-23-2024 NoteHNO ID: [id number] Author: IRAIS HANNA PA Service: ? Author Type: Physician Specialty Finishing Utility Person Type: Progress Notes Filed: 07/03/2024 13:13 Note Text: This note was created using EMcuberiter. Subjective Ghislaine Givens is a 34 year [...] plan were d (more content not included)...[facility]12-23-2024 History of Present illness Narrative* Irais Hanna, MIGUEL A - 07/03/2024 1:11 PM EST This note was created using EMcuberiter. Subjective Ghislaine Givens is a 34 year [...] evaluation. MIGUEL A Goldman documented in [facility]12-[facility] History of Present illness Narrative* Luis [...] PATIENT PRESENTS WITH AN IMPLANTABLE OR ATTACHED RACING MANAGER: No RADIOLOGY DEPARTMENT: General X-ray: Exam(s) Completed: Chest X-Ray PERIPHERAL IV DATA: Not applicable SIGNED BY: RT Los(R) July 03, 2024 12:58 PM documented in this encounterWadsworth-[facility]man [facility]12-23-2024 NoteHNO ID: [id number] Author: LUIS MAYES RT(R) Service: Radiology Author [...] PATIENT PRESENTS WITH AN IMPLANTABLE OR ATTACHED RACING MANAGER: No RADIOLOGY DEPARTMENT: General X-ray: Exam(s) Completed: Chest X-Ray PERIPHERAL IV DATA: Not applicable SIGNED BY: RT Los(R) July 03, 2024 12:58 [facility]12-16-2024 NoteHNO ID: [id number] Author: FRANTZ AREVALO PA-C Service: ? Author Type: Physician Specialty Finishing Utility Person Type: Progress Notes Filed: 06/26/2024 11:03 Note Text: This note was created using Inboxter. Subjective Ghislaine Givens is a 34 year [...] - ICD9: 493.90, ICD10: J45.20 MIGUEL A [facility]12-16-2024 History of Present illness Narrative* Frantz Arevalo PA-C - 06/26/2024 10:55 AM EST This note was created using Inboxter. Subjective Ghislaine Givens is a 34 year [...] J45.20 Frantz Arevalo PA-C documented in this encounterWadsworth[facility]01-12-2024 Procedure [facility]12-21-2023 History of Present illness Narrative* Andres Galaviz APRN.[facility] - 07/01/2023 10:42 AM EST Images [...] ophthalmology. Appointment scheduled today 115. Andres Galaviz APRN.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 documented in this encounterWadsworth-[facility]12-16-2023 Discharge summary Author Alex [facility] June 26, 2023 6:14pm Note Date/Time June 26, 2023 12:09pm [facility] Medical Records Department [address] [place] [address] Emergency Department Summary 06/26/23 MR#: [id number] Acct: [id number] Name: GHISLAINE GIVENS Rep #:[id number] : 1990 33 From: Taiwo Chen MD [...] pharmacy. She denies any other new symptoms. [facility] Medical History Anxiety Asthma Constipation [...] % (Auto) 63.6 Lymph % (Auto) 30.6 [place] % (Auto) 4.3 Eos % (Auto) 0.2 [...] Signed: Ellen Kevin MD at 13:36 EST Reading Location ID and State: [facility] / [place] Tel , Service support , Discharge Plan Triage Chief Complaint: Abd [...] your Primary Care Provider. Call [facility] ([phone]) or report to the closest Emergency Room. [...] applicable): cc: Dr. Sophy Gibbons ~* Signed [facility] Work Phone: 1(456) 328-783110-29-2023 Progress note Author Rickey Gifford [facility] May 09, 2023 11:46am Note Date/Time May 09, 2023 7 :55am [facility] Medical Records Department [address] [place] [address] Progress Note - Hospitalist 05/09/23751 MR#: [id number] Acct: [id number] Name: GHSILAINE GIVENS Rep #:[id number] : 1990 33 From: Rickey Gifford DO PCP: Care Physician,No Primary Status :ADM IN [place] [facility] [place]-4 Reason for Visit Reason for Visit: Diagnoses [...] through [facility]. Charges/Coding Visit Charges Inpatient E&M: 56102 Subs Hosp L3 05/09/23 1146 <Electronically signed by Rickey Gifford DO> Cosigner Signature (if applicable): CC: ~ Signed [facility] Work Phone: 1(700) 982-615810-29-2023 Progress note Author Abdirizak Forrest [facility] May 09, 2023 10:47am Note Date/Time May 09, 2023 1 0:19am [facility] Medical Records Department [address] [place] [address] Progress Note - Surgery 05/09/23 1018 MR#: [id number] Acct: [id number] Name: GHISLAINE GIVENS Rep #:[id number] : 1990 33 From: Abdirizak Gupta PM PCP: Care Physician,No Primary Status :ADM IN Location: MS3 NX791-8 Subjective Subjective Ms. Givens is a 33-year-old [...] Cosigner Signature (if applicable): CC: ~ Signed [facility] Work Phone: 1(268) 546-928410-28-2023 Progress note Author Rickey Gifford [facility] May 08, 2023 10:48am Note Date/Time May 08, 2023 7 :51am [facility] Medical Records Department [address] [place] [address] Progress Note - Hospitalist 05/08/23 0749 MR#: [id number] Acct: [id number] Name: GHISLAINE GIVENS Rep #:[id number] : 1990 33 From: Rickey Gifford DO PCP: Care Physician,No Primary Status :ADM IN Location: [place] [address] Reason for Visit Reason for Visit: Diagnoses [...] with enoxaparin. Charges/Coding Visit Charges Inpatient E&M: 98380 Subs Hosp L2 05/08/23 1048 <Electronically signed by Rickey Gifford DO> Cosigner Signature (if applicable): CC: ~ Signed [facility] Work Phone: 1([phone]) 852-840910-28-2023 Progress note Author Abdirizak Forrest [facility] May 08, 2023 10:31am Note Date/Time May 08, 2023 9 :18am [facility] Medical Records Department [address] [place] [address] Progress Note - Surgery 05/08/2317 MR#: [id number] Acct: [id number] Name: GHISLAINE GIVENS Rep #:[id number] : 1990 33 From: Abdirizak Gupta PM PCP: Care Physician,No Primary Status :ADM IN Location: HI3 YV404-4 Subjective Subjective Mrs. Givens is a 33-year-old [...] Cosigner Signature (if applicable): CC: ~ Signed [facility] Work Phone: 1(906) 131-266710-27-2023 Procedure [facility] 05-07-2023 Progress note Author Rickey Gifford [facility] May 07, 2023 12:40pm Note Date/Time May 07, 2023 1 2:36pm [facility] Medical Records Department [address] [place] [address] Progress Note - Hospitalist 05/07/23 1229 MR#: [id number] Acct: [id number] Name: GHISLAINE GIVENS Rep #:[id number] : 1990 33 From: Rickey Gifford DO PCP: Care Physician,No Primary Status :ADM IN [facility] Reason for Visit Reason for Visit: Diagnoses [...] her symptoms. Charges/Coding Visit Charges Inpatient E&M: 59382 Subs Hosp L2 05/07/23 1240 <Electronically signed by Rickey Gifford DO> Cosigner Signature (if applicable): CC: ~ Signed [facility] Work Phone: 1(119) 235-622310-26-2023 Consult note Author Rickey Gifford [facility] May 06, 2023 4:46pm Note Date/Time May 04, 2023 8 :30pm [facility] Medical Records Department [address] [place] [address] Pharmacokinetic/Renal -Consult 05/04/232026 MR#: [id number] Acct: [id number] Name: GHISLAINE GIVENS Rep #:[id number] : 1990 33 From: Otto enamorado PCP: Care Physician,No Primary Status :ADM IN Y Location: [place] [address] Consult Antibiotic Management Pharmacy has been consulted [...] will continue with 1000mg IV q8h per [facility] dosing protocol. Will check a trough [...] Date Rickey Gifford DO CC: ~ Signed [facility] Work Phone: 1([phone]) 270-497110-26-2023 Consult note Author Rickey Gifford [facility] May 06, 2023 4:46pm Note Date/Time May 05, 2023 2 :05pm [facility] Medical Records Department [address] [place] [address] Pharmacokinetic/Renal -Consult 05/05/23 1404 MR#: [id number] Acct: [id number] Name: GHISLAINE GIVENS Rep #:[id number] : 1990 33 From: Gage Trejo PCP: Care Physician,No Primary Status :ADM IN Location: [place] [address]-1 Consult Antibiotic Management Pharmacy has been consulted to manage selected antiobiotic: Vancomycin Type of Intervention Type of Consult: Follow-up Suspected Infection Suspected Infection: Skin/Soft tissue Prior Doses of Antibiotics Prior Doses of Antibiotics Received/Current Regimen: Vancomycin 1000 mg given 05/04 @ 2242, and 05/05 @ 6473 Labs Labs: Sodium 132 mmol/L (136-145) L [...] 1230 05/05/23 1406 <Electronically signed by Gage birch> Date _ Gage Trejo 05/06/23 1646 <Electronically signed by Rickey Gifford DO> Cosigner Signature (if applicable): Date Rickey Gifford DO CC: ~ Signed [facility] Work Phone: 1(317) 264-847010-26-2023 Progress note Author Rickey Gifford [facility] May 06, 2023 2:03pm Note Date/Time May 06, 2023 8 :47am [facility] Medical Records Department [address] [place] [address] Progress Note - Hospitalist 05/06/23 0844 MR#: [id number] Acct: [id number] Name: GHISLAINE GIVENS Rep #:[id number] : 1990 33 From: Rickey Gifford DO PCP: Care Physician,No Primary Status :ADM IN Location: [place] [address]-1 Reason for Visit Reason for Visit: Diagnoses [...] 23:59 23:59 Intake Total 1182 / 1182 1988.25 / 1988.25 1361.75 / 1361.75 Balance 1182 / 1182 [...] (Auto) 40.5 L, Lymph % (Auto) 49.6H, [place] % (Auto) 8.4, Eos % (Auto) 0.3, [...] with enoxaparin. Charges/Coding Visit Charges Inpatient E&M: 61128 Subs Hosp L1 05/06/23 1403 <Electronically signed by Rickey Gifford DO> Cosigner Signature (if applicable): CC: ~ Signed [facility] Work Phone: 1(969) 366-439110-26-2023 Progress note Author Abdirizak Forrest [facility] May 06, 2023 8:10am Note Date/Time May 06, 2023 8 :10am [facility] Medical Records Department [address] [place] [address] Progress Note - Surgery 05/06/23801 MR#: [id number] Acct: [id number] Name: GHISLAINE GIVENS Rep #:[id number] : 1990 33 From: Abdirizak Gupta PM PCP: Care Physician,No Primary Status :ADM IN Location: MS3 TG273-8 Subjective Subjective Ms. Givens is a 33-year-old [...] packed with sterile gauze. A single layer Eldridge compression bandage was donned. We will plan [...] (Auto) 40.5 L, Lymph % (Auto) 49.6H, [place] % (Auto) 8.4, Eos % (Auto) 0.3, [...] dry sterile dressing and a single layer Eldridge compression bandage. Const alert, oriented x3 and [...] dry sterile dressing and a single layer Eldridge compression bandage. Surgical cultures: Streptococcus group C [...] Cosigner Signature (if applicable): CC: ~ Signed [facility] Work Phone: 1(936) 235-497810-25-2023 Progress note Author Rickey Gifford [facility] May 05, 2023 1:09pm Note Date/Time May 05, 2023 7 :49am [facility] Medical Records Department [address] [place] [address] Progress Note - Hospitalist 05/05/23 0745 MR#: [id number] Acct: [id number] Name: GHISLAINE GIVENS Rep #:[id number] : 1990 33 From: Rickey Gifford DO PCP: Care Physician,No Primary Status :ADM IN Location: [address] Reason for Visit Reason for Visit: [...] 73.2 H, Lymph % (Auto) 14.9 L, [place] % (Auto) 10.2 H, Eos % (Auto) [...] % (Auto) 56.9, Lymph % (Auto) 30.9, [place] % (Auto) 11.1 H, Eos % (Auto) [...] 11:59 EDT Reading Location ID and State: [address] [place] [address] , Service support , Physical Exam Const [...] with enoxaparin. Charges/Coding Visit Charges Inpatient E&M: 13219 Subs Hosp L2 05/05/23 1309 <Electronically signed by Rickey Gifford DO> Cosigner Signature (if applicable): CC: ~ Signed [facility] Work Phone: 1(105) 955-986310-25-2023 Progress note Author Abdirizak Forrest [facility] May 05, 2023 10:17am Note Date/Time May 05, 2023 8 :29am [facility] Medical Records Department [address] [facility] [place] [address] Progress Note - Surgery 05/05/23 0829 MR#: [id number] Acct: [id number] Name: GHISLAINE GIVENS Rep #:[id number] : 1990 33 From: Abdirizak Gupta PM PCP: Care Physician,No Primary Status :ADM IN Location: MS3 IR387-1 Subjective Subjective Ms. Givens is a 33-year-old [...] 73.2 H, Lymph % (Auto) 14.9 L, [place] % (Auto) 10.2 H, Eos % (Auto) [...] % (Auto) 56.9, Lymph % (Auto) 30.9, [place] % (Auto) 11.1 H, Eos % (Auto) [...] 11:59 EDT Reading Location ID and State: [facility] / [place] , Service support , Physical Exam Narrative [...] dry sterile dressing and a double layer Eldridge compressionbandage was applied. Patient is to continue [...] Cosigner Signature (if applicable): CC: ~ Signed [facility] Work Phone: 1(900) 988-164610-24-2023 Consult note Author Abdirizak Forrest [facility] May 04, 2023 5:02pm Note Date/Time May 04, 2023 4 :48pm [facility] Medical Records Department [address] [place] [address] Consultation 05/04/23 1642 MR#: [id number] Acct: [id number] Name: GHISLAINE GIVENS Rep #:[id number] : 1990 33 From: Abdirizak Gupta PM PCP: Care Physician,No Primary Status :[facility] Location: [facility] A-1 Assessment & Plan Assessment/Plan (1) [...] is a 33 F who presented to [facility] emergency department for concerns for worsening [...] No other pedal complaints at this time. [facility] Medical History Anxiety Asthma Constipation [...] PO Q6H PRN PRN Nausea #10 TABLETS 10/03/23 [Rx Last Taken Unknown] dicyclomine 20 mg [...] 73.2 H, Lymph % (Auto) 14.9 L, [place] % (Auto) 10.2 H, Eos % (Auto) [...] 11:59 EDT Reading Location ID and State: [facility] / [place] , Service support , 05/04/23 1702 <Electronically signed by Abdirizak Forrest DPM> Cosigner Signature (if applicable): CC: No Primary Care Physician~ Signed [facility] Work Phone: 1(847) 109-968110-24-2023 [facility] Discharge summary Author Javy Doss [facility] May 04, 2023 3:49pm Note Date/Time May 04, 2023 1 0:56am [facility] Medical Records Department [address] [place] [address] Emergency Department Summary 05/04/23 MR#: [id number] Acct: [id number] Name: GHISLAINE GIVENS Rep #:[id number] : 1990 33 From: Javy Doss DO PCP: Care Physician,No Primary Status :[facility] HPI History of Present Illness [...] denies any fever. Patient is a diabetic. [facility] Medical History (Updated 05/04/23 @ [...] 73.2 H Lymph % (Auto) 14.9 L [place] % (Auto) 10.2 H Eos % (Auto) [...] 11:59 EDT Reading Location ID and State: [facility] / [place] , Service support , Three-view x-rays of the right foot obtained interpreted by myself as soft tissue swelling with gas in the soft tissues. Radiology in agreement. There isno evidence of osteomyelitis. Discharge Plan Dx/Rx/DC Orders Clinical Impression: Diabetic foot infection, Diabetes, Leukocytosis Disposition Disposition: Acute Care Hospital [facility] Discharge Date/Time: 05/04/23 15:25 What to do if you have Problems For any increased pain, shortness of breath, bleeding, nausea or vomiting, chestpain, or any unexpected problems, contact your Primary Care Provider. Call [facility] ([phone]) or report to the closest Emergency Room. Call 911 if necessary. 05/04/23 3370 <Electronically signed by Javy Doss DO> Cosigner Signature (if applicable): CC: No Primary Care Physician ~ Signed [facility] Work Phone: 1(876) 363-938010-24-2023 History and physical note Author Rickey Gifford [facility] May 04, 2023 1:14pm Note Date/Time May 04, 2023 1 :13pm [facility] Medical Records Department [address] [place] [address] H&P Exam - Hospitalist 05/04/23 1309 MR#: [id number] Acct: [id number] Name: GHISLAINE GIVENS Rep #:[id number] : 1990 33 From: Rickey Gifford DO [...] Patient received vancomycin in the emergency room. [facility] Medical History (Updated 05/04/23 @ [...] 73.2 H, Lymph % (Auto) 14.9 L, [place] % (Auto) 10.2 H, Eos % (Auto) [...] 11:59 EDT Reading Location ID and State: [facility] / [place] , Service support , Assessment & Plan [...] with enoxaparin. Charges/Coding Visit Charges Inpatient E&M: 40793 Init Hosp L2 05/04/23 1314 <Electronically signed by Rickey Gifford DO> Cosigner Signature (if applicable): CC: Dr. Rickey Gifford DO; No Primary Care Physician~ Signed [facility] Work Phone: 1(771) 793-444910-24-2023 History and physical note Author Rickey Gifford [facility] May 04, 2023 1:14pm Note Date/Time May 04, 2023 1 :13pm [facility] Medical Records Department [address] [place] [address] H&P Exam - Hospitalist 05/04/23 1309 MR#: [id number] Acct: [id number] Name: GHISLAINE GIVENS Rep #:[id number] : 1990 33 From: Rickey Gifford DO [...] Patient received vancomycin in the emergency room. [facility] Medical History (Updated 05/04/23 @ [...] 73.2 H, Lymph % (Auto) 14.9 L, [place] % (Auto) 10.2 H, Eos % (Auto) [...] with enoxaparin. Charges/Coding Visit Charges Inpatient E&M: 39801 Init Hosp L2 05/04/23 1314 <Electronically signed by Rickey Gifford DO> Cosigner Signature (if applicable): CC: Dr. Rickey Gifford, ; No Primary Care Physician~ Signed [facility] Work Phone: 1(925) 269-700410-05-2023 History of Present illness Narrative* Abdirizak Peña APRN.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 - 04/15/2023 11:13 AM EDT [facility]. Here today with abd pain and sob, patients crying. Breathing easy but appears in pain. O2 100% on RA. Will refer to ER, declines squad, friend to drive to ER. documented in this encounterWadsworth[facility]09-15-2023 History of Present illness Narrative* RigoClaritza - 03/26/2023 2:21 PM EDT POPULATION HEALTH NAVIGATION OUTREACH Action/ [place] Support: Called pt to schedule an appt in Pain Management. Lvm for pt to call [phone] for scheduling. Patient Identified by Name and : NO Outreach Outcome/Action Unable to reach patient: Left message Did you use a PCP flex slot to schedule this appointment? No Reason for Outreach Care Gap or Scheduling/Wellness visits Payer: Payor: [employer] MEDICAID / Plan: [employer] MEDICAID OF [place] / Product Type: Medicaid [...] 26, 2023 2:22 PM documented in this encounterWadsworth-Rittman [facility]09-01-2023 History of Present illness Narrative* Pilar Magdaleno APRN.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 - 03/12/2023 12:12 PM EDT Please let patient know Dr. Sun is not in network. I have placed an order for pain management through the [facility]. documented in this encounterWadsworth-Rittman Hospital08-29-2023 Miscellaneous Notes* Telephone Encounter - Milagros Cloud RN - 03/09/2023 12:35 PM EDT Boyfriend calls and not listed on chart. Requested to speak to patient. Patient requesting pain management referral be faxed to Dr. Lr. Faxed per request to [phone]. Milagros Cloud RN documented in this encounterWadsworth-Rittman Hospital08-24-2023 NoteHNO ID: [id number] Author: Saida Lopez MD Service: ? Author Type: Physician Type: Progress Notes Filed: 03/11/2023 7:18 AM Note Text: Documentation Query Based on your medical judgment of the clinical indicators outlined below, please clarify the condition: (Please type X next to your response and sign) Clinical indicators: 03.03.23 Gastroenterology note 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: Plan: Nausea with vomiting Generalized abdominal pain [...] X Other, please specify___due to psychiatric problems [facility]08-24-2023 NoteHNO ID: [id number] Author: Saida Lopez MD Service: ? Author [...] psych and GI. Discussed with social media director/embedded case manager. OK to discharge the patient. Rest of management as outpatient. I personally spent more than 30 minutes for discharge of this patient. Discussed with unit PA/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 about care plans. Recommended to see her [...] 11:57 [facility]08-24-2023 NoteHNO ID: [id number] Author: Cary Pino, RYNE Service: Care Management [...] No Caregiver needed Transportation Arrangements Transportation Arrangements: [employer] and Phone #:: [facility] [phone] Date of Trip: 03/04/23 Time of Trip: 1730 Type of Service: Wheelchair Is Patient Medicaid Pending?: No Was transportation financial coverage discussed with family?: Patient Telephone Solicitor Supervisor Location: [facility] Destination: Home Financial Care Management Responsibility: [...] ED to Hosp-Admission (Current) from 03/01/2023 in [facility] Observation Unit Medical Follow-Up Appointment Specialty Psychaitry Behavior Health/Jose L Mccarthy Provider Name [facility] Address [address] [place] [address], [place] [address] Additional Instructions Please call for appointment to establish physician for mental health SIGNATURE: Cary Pino RN PATIENT NAME: Ghislaine Givens DATE: March 04, 2023 TIME: 11:26 AM CONTACT #: [phone] NoteHNO ID: [id number] Author: Cary Pino RN Service: Care Management [...] 04, 2023 TIME: 11:25 AM PAGER/CONTACT #: [phone] Note HNO ID: [id number] Author: Saida Lopez MD Service: ? Author [...] discharge in AM. Discussed with social media director/embedded case manager. Advance diet. Physical Examination: GENERAL: [...] MD DATE: March 03, 2023 TIME: 3:15 [facility]08-23-2023 NoteHNO ID: [id number] Author: Frida Scott APRN.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 Service: Gastroenterology Author Type: Nurse Practitioner Type: Plan of Care Filed: 03/03/2023 11:30 AM Note Text: DEPARTMENT OF GASTROENTEROLOGY AND HEPATOLOGY [facility] INPATIENT VISIT DATE AND TIME 03/03/23 11:16 [...] mild gastritis and an esophageal ulcer at [facility]. Patient presented from outpatient GI clinic [...] and re-consult as needed. SIGNATURE: Frida Scott APRN.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 PAGER/CONTACT #: For concerns during days 7a-5p, contact LINE MAINTENANCE directly [phone] Please page [phone] for covering attending concernsWright Memorial Hospital08-22-2023 Telephone encounter Note* Telephone Encounter - Almita Trammell PA-C - 03/02/2023 2:30 PM EDT Hi, The patient needs outpatient GES for persistent nausea and vomiting once optimized. Orders placed. The patient is a Dr. Doran patient and should follow- up with him. Thanks! Almita Trammell PA-C Gastroenterology and Hepatology [facility]08-22-2023 Miscellaneous Notes* Telephone Encounter - Almita Trammell PA-C - 03/02/2023 2:30 PM EDT Hi, The patient needs outpatient GES for persistent nausea and vomiting once optimized. Orders placed. The patient is a Dr. Doran patient and should follow- up with him. Thanks! Almita Trammell PA-C Gastroenterology and Hepatology documented in this encounterWadsworth-Rittman Hospital08-22-2023 History of Present illness Narrative* Claritza Sierra - 03/02/2023 1:27 PM EDT POPULATION HEALTH NAVIGATION OUTREACH Action/I [place] Support: Called pt to schedule an appt in Pain Management. No voicemail, unable to lvm Patient Identified by Name and : NO Outreach Outcome/Action Unable to reach patient: Phone number not valid / voicemail full Did you use a PCP flex slot to schedule this appointment? No Reason for Outreach Care Gap or Scheduling/Wellness visits Payer: Payor: [employer] MEDICAID / Plan: [employer] MEDICAID [place] / Product Type: Medicaid [...] 02, 2023 1:27 PM documented in this encounterWadsworth-Rittman Hospital08-22-2023 NoteHNO ID: [id number] Author: Ghislaine Mancilla RN Service: ? Author Type: Registered Nurse Type: Progress Notes Filed: 03/02/2023 5:47 PM Note Text: IV access lost. X2 RN attempted to get new access with no success. AMET and NOM notified and states will come and attempt soon. LINE MAINTENANCE notified via secure chat. Patient also complains of pain for second time this shift and LINE MAINTENANCE notified for second time as well. States tylenol did not work when given during morning medication rounds. Patient now walking halls as she states movement helps with pain at times. Informed LINE MAINTENANCE of patient calus/wound to right foot as [...] having another emesis on while going to XR with transport. GI doctor made aware and MOVIPREP will be moved to rn plasma center to attempt at a later time. As patient states she cannot tolerate drinking. 1730 Patient ordered oral contrast dye with CT. polysom tech states patient refusing to drink oral contrast. GI made aware via secure chat but no changes to orders made at this time. Patient will be sent to room with contrast dye per polysom tech. If pt drinks contrast and can keep in her body CT asked to be called and patient will then have the scan.[facility] 03-02-2023 NoteHNO ID: [id number] Author: Cary Pino RN Service: Care Management [...] Home Advance Directives Current Advance Directive: None Surveyor Mine Attempted to Assist with AD Completion: Yes [...] General wellness, Be able to go home [place] of [place] Explained: [place] of [place] Given: No Reason Not Given: [...] during this admission, please contact Case Management. [phone]. Uber transport will be needed once stable for discharge. HX Depression Bipolar disorder DM SIGNATURE: Cary Pino RN PATIENT NAME: Ghislaine Givens DATE: March 02, 2023 TIME: 8:46 AM CONTACT #: [phone] History of Present illness Narrative* Dewayne Doran MD - 03/01/2023 10:40 AM EDT NAME: Ghislaine Givens AGE: [age] year old Referred by: Pilar Magdaleno [address] [place] [address] Referred for: an opinion regarding nausea and [...] Past Histories independently gathered by the clinical network desktop support specialist and the remaining scribed note [...] PHYSICIAN Dewayne Doran MD documented in this encounterWadsworth-Rittman Hospital08-15-2023 History of Present illness Narrative* Pilar Magdaleno APRN.[facility] - 02/23/2023 10:11 AM EDT Chief Complaint Patient presents with: Hospital F/U [facility] Ghislaine Givens [...] - CONSULT TO PAIN MGT Pilar Magdaleno APRN.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 documented in this encounterWadsworth-Rittman Hospital08-08-2023 Note. MICRO - Microbiology PROCEDURE: Blood [...] Locations *1: This test was performed at: [address], [address] [place], [place] [address]2-16-2023 Note. MICRO - Microbiology PROCEDURE: Blood Culture [...] Locations *1: This test was performed at: [address], [address] [place], [place] [address]2-11-2023 Hospital Discharge instructions Patient Education 02/11/2023 17:15:56 [...] as coffee and soda. Take and apply bbvi-kqj-nrzdcan and prescription medicines only as told by [...] 10/06/2017 Document Revised: 11/04/2018 Document Reviewed: 10/06/2017 [employer] Patient Education 2020 Home-Account. 02/11/2023 17:15:45 Nausea, Adult, Nfqu-me-Ufjy Nausea, Adult Nausea is feeling sick to [...] fruit juice). ?Low-calorie sports drinks. Eat bland, vvkj-kb-vacpqo foods in small amounts as you are able, such as: ?Bananas. ?Applesauce. ?Rice. ?Low-fat (lean) meats. ?[place]. ?Crackers. Avoid drinking fluids that have a lot of sugar or caffeine in them. This includes energy drinks, sports drinks, and soda. Avoid alcohol. Avoid spicy or fatty foods. General instructions Take zxej-eeo-ogrtvlf and prescription medicines only as told by your doctor. Rest at home while you get better. Drink enough fluid to keep your pee (urine) pale yellow. Take slow and deep breaths when you feel sick to your stomach. Avoid food or things that have strong smells. Wash your hands often with soap and water. If you cannot use soap and water, use hand it intern. Make sure that all people in your [...] drink what your doctor tells you. Take whby-hig-ewuidix and prescription medicines only as told by [...] 06/16/2012 Document Revised: 12/06/2018 Document Reviewed: 12/06/2018 [employer] Patient Education 2020 Home-Account. Follow Up Care 02/10/2023 23:24:03 With:AMY SOLORZANO APRN-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 Address: [address] [facility] [address]- [phone] When:3-5 days Comments:Please call to schedule your post-hospital follow-up appointment. [facility] 08-03-2023 Note Date of Service 02/11/2023 Chief Complaint C/o generalized ABD pain, N/V, multiple recent falls. States she has not been checking her blood sugar either. States she is supposed to be using insulin for DM. History of Present Illness 33-year-old female with past medical history significant for HTN, type 2 diabetes mellitus, neuropathy, depression/anxiety, asthma, cannabis use. Patient presented to [facility] emergency department on 02/10/2023 with a 1 [...] and pelvis with contrast. 01/07/2023 and 01/09/2023 [facility] ED visit 01/10/[address] [facility] [address] abdomen and pelvis with contrast that showed left hydrosalpinx, mildly dilated CBD with adjacent more than expected khurram hepatis adenopathy which may be reactive. She was treated with IV fluids and antiemetics and discharged. 01/12/2023 and 01/13/2023 [facility] ED visit treated with IV fluids and antiemetics, haldol and discharged. 01/14/2023 [facility] emergency department visit. IV fluids and antiemetics given. Admitted for hypokalemia. CT abdomen and pelvis with bilateral small ovarian cysts. 01/17/20[address] [facility] ED visit. CT abdomen and pelvis with contrast showed underfilling versus mucosal thickening at rectosigmoid colon. Otherwise unremarkable. 01/24 [facility] emergency department visit. Discharged with a prescription for Keflex and Reglan. No imaging done. 01/25 [facility] emergency department treated with IV fluids and antiemetics. 727: She was seen in urgent care and advised to go to the emergency department. [facility] ED visit treated with IV fluids and antiemetics and discharged. She was seen at [facility] on 02/08. She had CT of [...] February 11, 2023 Verified By: ROSE MARY ESCAMILLA DO CLINICAL STATEMENT: IMPRESSION: Initially rapid gastric [...] by MARTI WEBB on 02/11/2023 07:14 PM [facility]08-03-2023 Note Discharge Instructions Thank you for allowing [place] to assist you with your healthcare needs. The following is importantdischarge information regarding your hospital visit. Your Care Team [facility] Your Diagnosis Abdominal pain Hyponatremia [...] to schedule your post-hospital follow-up appointment. Where: [address] [place] [address]- [phone] The Following Activity and Diet Have Been [...] a day Duration: 7 Days Pickup at [facility] Unchanged promethazine (promethazine 25 mg rectal suppository) 1 suppository(ies) in the rectum Every 6 hours as needed for for nausea/vomiting Cannabis hyperemesis syndrome co-occurrent and due to cannabis abuse Pharmacy Information [facility]: [address] [place] [phone] What How Much When Why Comments Stop [...] as coffee and soda. Take and apply zbii-fru-egduxuz and prescription medicines only as told by [...] 10/06/2017 Document Revised: 11/04/2018 Document Reviewed: 10/06/2017 [employer] Patient Education 2020 Home-Account. Nausea, Adult Nausea is feeling sick to [...] juice). ? Low-calorie sports drinks. Eat bland, pxxy-ei-bzdrmt foods in small amounts as you are able, such as: ? Bananas. ? Applesauce. ? Rice. ? Low-fat (lean) meats. ? [place]. ? Crackers. Avoid drinking fluids that have a lot of sugar or caffeine in them. This includes energy drinks, sports drinks, and soda. Avoid alcohol. Avoid spicy or fatty foods. General instructions Take ugkg-jrj-oldhire and prescription medicines only as told by your doctor. Rest at home while you get better. Drink enough fluid to keep your pee (urine) pale yellow. Take slow and deep breaths when you feel sick to your stomach. Avoid food or things that have strong smells. Wash your hands often with soap and water. If you cannot use soap and water, use hand it intern. Make sure that all people in your [...] drink what your doctor tells you. Take fros-inq-fjaikbk and prescription medicines only as told by [...] 06/16/2012 Document Revised: 12/06/2018 Document Reviewed: 12/06/2018 [employer] Patient Education 2020 Home-Account. Additional Information VACCINATE! IT SAVES LIVES! Members of the community who have not yet received the COVID-19 vaccine and would like to receive it can visit one of [facility] vaccine clinics. There are many vaccine clinic locations within the [facility]. For locations and available times, please visit https://gettheshot.coronavirus.[place].gov/. It is important to note that some COVID mobile vaccine clinics are held outdoors and may be canceled in rainy or stormy conditions. To learn more about pediatric vaccinations (ages 5-11), we invite you to visit the [facility] webpage. https://www.[facility].org/pages/6336-Motgb-Bdmegrvqoau-Fdbtmlzgdp-Yhubr-Hhv stions.htmlTo learn more about the COVID-19 vaccine, we invite you to visit the CDC website for a list of frequently asked questions.https://www.cdc.gov/coronavirus/2019-ncov/vaccines/faq.html [facility] Patient Portal Access Instructions: Stay connected with your healthcare team and access your personal medical information anytime with the [facility] Patient Portal. Please follow the directions below to create your [facility] account: 1.Access the email account you provided upon registration to the hospital/physician office.2.Look for an invitation email from [facility].3.Open the email and access the invitation link: [facility]Invitation to [facility].4.Fill in the required joy to create your account. To access your account, visit [email or web address]. Click the blue button labeled Access Patient [...] who you will allowto register on the [place] [facility] Patient Portal for access to your information. You can also access the [facility] Patient Portal on the [place] [facility] della. Simply click on Patient Portal and then log into your account. If you would like to receive a full copy of your medical records, please contact the [facility] Medical Records Department by calling [phone], Wednesday through Wednesday between 8 a.m. and [...] Call your local pharmacy or go to http://bit.ly/2S9Fg0b to find one close to you.3.Make use of household items: Use cat litter or old coffee grounds to dispose medications if other options arenot available. Mix your drugs with these household products, seal them in an airtight container andthrow it into the garbage. Call [facility]: [phone] to be sure your drugs can be [...] Education Materials Cannabinoid Hyperemesis Syndrome Nausea, Adult, Zemq-sw-Jezc Medication Leaflets My discharge plan and instructions have been reviewed and explained to me and I,GHISLAINE GIVENS understand my current condition and have read and understand these discharge instructions. I have received a written copy of the plan/instructions. If I have questions, I am aware that I should contact my doctor. Patient/Camp Program Director Signature: Date/Time: Relationship to Patient: Witness Name/Signature: Date/Time: [facility]08-03-2023 Note ORIGINAL EXAMINATION: GASTRIC EMPTYING STUDY02/11/2023 [...] findings and interpretation. Interpreted by: Rose Mary Escamilla Preliminary Report By: Say Zelaya Electronically signed By Rose Mary Escamilla Dictated Date: 02/11/2023 2:45:02 PM Prelim Date: 02/11/2023 3:41:00 PM Sign Date: 02/11/2023 3:41:00 PM [facility]ing [facility] Evaluation + Plan noteExtracted from: Title:History and Physical Author:MARTI WEBB SORT WORKER-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 Date:02/11/23 1. Abdominal pain 2. Hyponatremia 3. [...] and may include grammatical and/or spelling errors. [facility] 08-03-2023 Note ORIGINAL EXAMINATION: TRANSVAGINAL PELVIC [...] Date: 02/11/2023 12:11:13 PM Ordering Provider: MARTI [facility]08-03-2023 Note ORIGINAL EXAMINATION: ONE SUPINE XRAY VIEW(S) [...] Sign Date: 02/11/2023 9:28:54 AM Ordering Provider: [facility]08-03-2023 Note ORIGINAL EXAMINATION: COMPLETE ABDOMINAL ULTRASOUND [...] Sign Date: 02/11/2023 1:29:01 PM Ordering Provider: [facility]07-27-2023 History of Present illness Narrative* Irais [...] that due to limited diagnostic capabilities in [facility], I recommend she go back to the ER since she is having pain and unable to keep down fluids. She understands. She does have a PCP, but would like a new one. I had our desktop publishing operator help with scheduling a PCP appointment for the future, but still advise she go to the ER today. documented in this encounterWadsworth-Rittman Hospital07-16-2023 Hospital Discharge instructions* Discharge Instructions* Abdirizak [...] visit today. Please follow up with yourpratrium healthry care provider with any questions or concerns about your results today. Thank you for choosing [facility] for your care. Sincerely, Abdirizak Ramirez MD documented in this [facility]07-16-2023 Emergency department Note* Abdirizak Ramirez MD - 01/24/2023 10:03 AM EDT [facility] ED EMERGENCY DEPARTMENT ENCOUNTER Pt Name: Ghislaine [...] Culture. Procedure Abnormality Status --------- ------ Complete Urinalysis[[id number]] Abnormal Final result Please view results for [...] of DVT, no recent surgery/immobilization. Based on brazilian syncope rule (see below), patient is low risk and well appearing here, plan to discharge the patient home with PMD follow up. Marcella syncope rule: predisposition to vasovagal symptoms/consistent with [...] reflex to Culture(!) Possible UTI. Ceftriaxone ordered. [NEAV] 1121 TROPONIN I: <0.012 Normal [NEVA] 1121 [...] PM PATIENT REFERRED TO: Amy Solorzano [address] [facility] [address] Schedule an appointment as soon [...] Abdirizak Ramirez MD KIANA Emergency Medicine Physician [facility] Abdirizak Ramirez MD 01/24/23 1303 * Tamica Penaloza RN - 01/24/2023 10:03 AM EDT Patient to room 15 with c/o vomiting for 3 weeks. Patient reports being at [facility] and being told it was [facility], and there was nothing more they could do for her. Patient reports having Zofran at home that she doesn't take, because it has not relieved her symptoms. V/S obtained, call light within reach. documented in this encounterSAshtabula General [id number] Emergency department Triage note* Tamica Penaloza RN - 01/24/2023 10:03 AM EDT Patient to room 15 with c/o vomiting for 3 weeks. Patient reports being at [facility] and being told it was [facility], and there was nothing more they could do for her. Patient reports having Zofran at home that she doesn't take, because it has not relieved her symptoms. V/S obtained, call light within reach. [id number] Physician Emergency department Note* Abdirizak Ramirez MD - 01/24/2023 10:03 AM EDT [facility] ED EMERGENCY DEPARTMENT ENCOUNTER Pt Name: Ghislaine [...] Phys[facility] (Per Emergency Physician): Interpretation per [...] Culture. Procedure Abnormality Status --------- ------ Complete Urinalysis[[id number]] Abnormal Final result Please view results for [...] of DVT, no recent surgery/immobilization. Based on brazilian syncope rule (see below), patient is low risk and well appearing here, plan to discharge the patient home with PMD follow up. Marcella syncope rule: predisposition to vasovagal symptoms/consistent with [...] 01/24/2023 01:00:46 PM PATIENT REFERRED TO: Amy Rashad [address] [facility] [address] Schedule an appointment as soon [...] Abdirizak Ramirez MD KIANA Emergency Medicine Physician [facility] Abdirizak Ramirez MD 01/24/23 1303 [id number] Discharge summary Author Lexus Villatoro [facility] January 15, 2023 2:12pm Note Date/Time January 15, 2023 2:11p m [facility] Medical Records Department [address] [place] [address] Instructions for Home/Discharge Instructions 01/15/23 1411 MR#: [id number] Acct: [id number] Name: GHISLAINE GIVENS Rep #:[id number] : 1990 32 From: Lexus Villatoro MD PCP: [facility] St atus:ADM BOB Discharge Instructions [...] Attending Provider: Lexus Villatoro Primary Care Provider: [facility] Instructions Patient Instructions: Cannabinoid Hyperemesis Syndrome, ED [...] Qty: 7 0RF [facility] - Within 1 Week Disposition Disposition (needs filled in before D/C Order can be placed): Home, Self Care 01/15/23 1411<Electronically signed by Lexus Villatoro MD>Lexus Villatoro MD CC: [facility] ~ Signed ADDENDUM by Dr. Lexus Villatoro MD on 01/15/23 at 1412 You were noted to have a small ovarian cyst, this was seen previous on a scan ofyour abdomen as well. Please follow up with your PCP or ob/radiation monitor for further management and monitoring 01/15/23 141<Electronically signed by Lexus Villatoro MD>Lexus Villatoro MD cc: [facility] ~* Signed [facility] Work Phone: 1(506) 516-715807-07-2023 Discharge summary Author Lexus Villatoro [facility] January 15, 2023 2:23pm Note Date/Time January 15, 2023 2:12p m [facility] Medical Records Department [address] [place] [address] Discharge Summary 01/15/23 141 MR#: [id number] Acct: [id number] Name: GHISLAINE GIVENS Rep #:[id number] : 1990 32 From: Lexus Villatoro MD PCP: [facility] St atus:ADM BOB Location: [place] [address] Providers Date of Admission: 01/14/23 Date of Discharge: 01/15/23 Primary Care Physician: [facility] Reason For Visit: INTRACTABLE NAUSEA VOMITING, HYPOKALEMIA [...] complication status: with neurologic complications Diabetes mellitus chcf insulin use: without chcf use Diabetes mellitus type: type 2 Plan [...] diabetes mellitus, hypertension, depression who presents to [facility] 01/14/2023 with 1 week of nausea, [...] diet for this, strongly recommend lab work lakshmitiara. D/c instructions as follows: -Would recommend lab [...] Please follow up with your PCP or ob/radiation monitor for further management and monitoring -Please [...] % (Auto) 56.4, Lymph % (Auto) 34.2, [place]% (Auto) 8.2, Eos % (Auto) 0.3, Baso [...] Attending Provider: Lexus Villatoro [facility] Instructions Patient Instructions: Cannabinoid Hyperemesis Syndrome, ED [...] Please follow up with your PCP or ob/radiation monitor for further management and monitoring -Please [...] 7 0RF [facility] - Within 1 Week Disposition Disposition (needs filled in before D/C Order can be placed): Home, Self Care Charges/Coding Visit Charges Inpatient E&M: 35076 Disch Hosp >30min 01/15/23 1423 <Electronically signed by Lexus Villatoro MD> Cosigner Signature (if applicable): CC: Dr. Lexus Villatoro MD; [facility]~ Signed [facility] Work Phone: 1(911) 802-941707-06-2023 History and physical note Author Lexus Villatoro [facility] January 14, 2023 6:10pm Note Date/Time January 14, 2023 3:59p m [facility] Medical Records Department [address] [place] [address] H&P Exam - Hospitalist 01/14/23 1552 MR#: [id number] Acct: [id number] Name: GHISLAINE GIVENS Rep #:[id number] : 1990 32 From: Lexus Villatoro MD PCP: [facility] atus:ADM BOB Location: MS3 [id number] HPI - General General Date of Admission: 01/14/23 Date of Service: 01/14/23 Chief Complaint: Nausea HPI Narrative GHISLAINE GIVENS, is a 32-year-old female with history of type 2 diabetes mellitus, hypertension, depression who presents to [facility] 01/14/2023 with 1 week of nausea, [...] urinating regularly. Denies any other specific complaints [facility] Medical History Anxiety Asthma Constipation [...] % (Auto) 59.7, Lymph % (Auto) 31.2, [place]% (Auto) 7.7, Eos % (Auto) 0.2, Baso [...] Clarity Clear, Urine pH 8.0, Ur Specific [place] 1.015, Urine Protein 15 H, Urine Glucose [...] documentation, 58minutes Charges/Coding Visit Charges Inpatient E&M: 43826 Init Hosp L2 01/14/23 1810 <Electronically signed by Lexus Villatoro MD> Cosigner Signature (if applicable): CC: Dr. Lexus Villatoro MD; [facility]~ Signed [facility] Work Phone: 1(291) 386-265607-06-2023 Discharge summary Author Willie Dhillon [facility] January 14, 2023 3:33pm Note Date/Time January 14, 2023 12:08 pm [facility] Medical Records Department [address] [place] [address] Emergency Department Summary 01/14/23 MR#: [id number] Acct: [id number] Name: GHISLAINE GIVENS Rep #:[id number] : 1990 32 From: Willie Dhillon MD PCP: [facility] St atus:REG ER Location: ED [...] had any for a day or so. [facility] Medical History Anxiety Asthma Constipation [...] % (Auto) 59.7 Lymph % (Auto) 31.2 [place] % (Auto) 7.7 Eos % (Auto) 0.2 [...] Clarity Clear Urine pH 8.0 Ur Specific [place] 1.015 Urine Protein 15 H Urine Glucose [...] Acute hypokalemia Disposition Disposition: Acute Care [facility] What to do if you have Problems For any increased pain, shortness of breath, bleeding, nausea or vomiting, chestpain, or any unexpected problems, contact your Primary Care Provider. Call [facility] ([phone]) or report to the closest Emergency Room. Call 911 if necessary. 01/14/23 1533 <Electronically signed by Willie Dhillon MD> Cosigner Signature (if applicable): CC: [facility] ~ Signed [facility] Work Phone: 1(492) 407-988707-04-2023 Discharge summary Author Fabricio Guevara [facility] January 12, 2023 1:18pm Note Date/Time January 12, 2023 10:58 am [facility] Medical Records Department [address] [place] [address] Emergency Department Summary 01/12/23 MR#: [id number] Acct: [id number] Name: GHISLAINE GIVENS Rep #:[id number] : 1990 32 From: Fabricio Guevara MD PCP: [facility] St atus:REG ER Location: ED [...] similar symptoms: Yes Recent Illness/Hospitalization: No PFSH [facility] Medical History Anxiety Asthma Constipation Depression Diabetes Diabetes mellitus with diabetic polyneuropathy Hypertension Type 2 diabetes mellitus with foot ulcer Home Medications albuterol sulfate 90 mcg/actuation aerosol inhaler (Ventolin HFA) 1 inh inhalation Q4H SOB 04/06/22 [History Last Taken 12/14/22] metformin 500 mg tablet 1,000 mg PO [...] 30 minutes before bedtime Primary Care Provider: [facility] Lam Referrals: Sophy Lam [Primary Care Provider] - 3-5 Days if not improving Activity Restrictions/Additional Instructions: Zofran as needed for nausea. Follow-up with your doctor as needed. Stop using marijuana. Disposition Disposition: Home, Self Care What to do if you have Problems For any increased pain, shortness of breath, bleeding, nausea or vomiting, chestpain, or any unexpected problems, contact your Primary Care Provider. Call [facility] ([phone]) or report to the closest Emergency Room. Call 911 if necessary. 01/12/23 1318 <Electronically signed by Fabricio Guevara MD> Cosigner Signature (if applicable): CC: [facility] ~ Signed [facility] Work Phone: [phone]) 154-542907-04-2023 Note. MICRO - Microbiology PROCEDURE: Urine Culture [...] Locations *1: This test was performed at: [address], [address]- , [facility] ([place])01-10-2023 Hospital Discharge instructions Patient Education 01/10/2023 17:43:53 [...] and water are not available, use alcohol-based it intern to keep from spreading the infection to [...] Yellow color of the eyes or skin 7882-8192 [employer]. [address] [place] [address]. All rights reserved. This information is not [...] National Alcohol and Substance Abuse Information Center (839)-972-4127 www.addictioncareWineNice.iNeoMarketing National [place] on Alcoholism and Drug Dependence 016-561-6119 www.ncadd.org Marijuana Anonymous 486-505-0969 www.marijuana-anonymous.org When to seek medical advice Call your healthcare provider right away if any of these occur: You feel extreme depression, fear, anxiety, or anger toward yourself or others. You feel out of control. You feel that you may try to harm yourself or another. You experience chest pain or shortness of breath. [phone] [employer]. [address] [place] [address]. All rights reserved. This information is not intended as a substitute for professional medical care. Always follow yourhealthcare professional's instructions. Follow Up Care 01/10/2023 13:44:57 With:Call Physician Referral Address:Unknown When:2-4 days [facility] 07-02-2023 Note Discharge Instructions Thank you for allowing [facility] to assist you with your healthcare needs. [...] may report side effects to FDA at 1-092-VZV-9246. What other drugs will affect promethazine? Using promethazine with other drugs that make you drowsy can worsen this effect. Ask your doctor before using opioid medication, a sleeping pill, a muscle relaxer, or medicine for anxiety or seizures. Other drugs may affect promethazine, including prescription and helo-mfe-xvgcnoe medicines, vitamins, and herbal products. Tell your [...] to ensure that the information provided by [employer]. ('Multum') is accurate, up-to-date, and complete, but no guarantee is made to that effect. Drug information contained herein may be time sensitive. MarkTend information has been compiled for use by healthcare practitioners and consumers in the [place] and therefore [employer] does not warrant that uses outside of the [place] are appropriate, unless specifically indicated otherwise. Col[employer]ís drug information does not endorse drugs, diagnose patients or recommend therapy. Colibrís drug information isan informational resource designed to [...] effective or appropriate for any given patient. [employer] does not assume any responsibility for any aspect of healthcare administered with the aid of information MarkTend provides. The information contained herein is not intended to cover all possible uses, directions, precautions, warnings, drug interactions, allergic reactions, or adverse effects. If you have questions about the drugs you are taking, check with your doctor, nurse or pharmacist. Copyright 9404-4429 [employer]. Version: 8.01. Revision Date: 08/06/2021. prochlorperazine (oral/injection) [...] What is prochlorperazine? Prochlorperazine is a phenothiazine (HAQK-ws-BLYX-a-zeen) antipsychotic medicine that is used to treat [...] may report side effects to FDA at 9-746-NSM-9339. What other drugs will affect prochlorperazine? Using [...] may affect prochlorperazine. This includes prescription and wmuc-ezh-szzxljm medicines, vitamins, and herbal products. Not all [...] to ensure that the information provided by [employer]. ('Multum') is accurate, up-to-date, and complete, but no guarantee is made to that effect. Drug information contained herein may be time sensitive. MarkTend information has been compiled for use by healthcare practitioners and consumers in the [place] and therefore [employer]Tend does not warrant that uses outside of the [place] are appropriate, unless specifically indicated otherwise. Col[employer]ís drug information does not endorse drugs, diagnose patients or recommend therapy. Colibrís drug information isan informational resource designed to [...] effective or appropriate for any given patient. [employer] does not assume any responsibility for any aspect of healthcare administered with the aid of information MarkTend provides. The information contained herein is not intended to cover all possible uses, directions, precautions, warnings, drug interactions, allergic reactions, or adverse effects. If you have questions about the drugs you are taking, check with your doctor, nurse or pharmacist. Copyright 0614-9877 [employer]. Version: 12.. Revision Date: 11/03/2019. Education Materials [...] and water are not available, use alcohol-based it intern to keep from spreading the infection to [...] Yellow color of the eyes or skin 0058-9480 [employer]. [address] [place] [address]. All rights reserved. This information is not [...] National Alcohol and Substance Abuse Information Center (462)-038-2296 www.addictioncareWineNice.iNeoMarketing National [place] on Alcoholism and Drug Dependence 013-481-0934 www.ncadd.org Marijuana Anonymous 289-484-0798 www.marijuana-anonymous.org When to seek medical advice Call your healthcare provider right away if any of these occur: You feel extreme depression, fear, anxiety, or anger toward yourself or others. You feel out of control. You feel that you may try to harm yourself or another. You experience chest pain or shortness of breath. 8616-3821 [employer]. [address] [place] [address]. All rights reserved. This information is not intended as a substitute for professional medical care. Always follow yourhealthcare professional's instructions. Additional Information VACCINATE! IT SAVES LIVES! Members of the community who have not yet received the COVID-19 vaccine and would like to receive it can visit one of [facility] vaccine clinics. There are many vaccine clinic locations within the [facility]. For locations and available times, please visit www.gettheshot.coronavirus.[place].gov/. It is important to note that some COVID mobile vaccine clinics are held outdoors and may be canceled in rainy or stormy conditions. To learn more about pediatric vaccinations (ages 5-11), we invite you to visit the [facility] webpage. https://www.[facility].org/pages/5074-Wrkzf-Httaewkhltx-Bwjvxicqnt-Hoqlv-Iab stions.htmlTo learn more about the COVID-19 vaccine, we invite you to visit the CDC website for a list of frequently asked questions. https://www.cdc.gov/coronavirus/2019-ncov/vaccines/faq.html [facility] Patient [facility] Access Instructions: Stay connected with your healthcare team and access your personal medical information anytime with the [facility] Patient Portal. If you would like a full copy of your medical records please contact the [facility] Medical Records Department Wednesday through Wednesday between 8a.m. and 4:30p.m. Please follow the directions below to access the portal: 1.Access the email account you provided upon registration to the hospital.2.Look for an invitation email from [facility].3.Open the email and access the invitation link: Accept Invitation to [facility]4.Fill in the required joy to create your account. Sign into [email or web address] with your username and password that you [...] you will allow to register on the [facility] Patient Portal for access to your information. You can also access the [facility] Patient Portal on the [employer] [place]. Simply click on Health Records under [employer] and then click on the Michael logo. HOW TO SAFELY DISPOSE OF PRESCRIPTION [...] Call your local pharmacy or go to http://Exara.StyleSeek/0Y6Di9y to find one close to you.3.Make use of household items: Use cat litter or old coffee grounds to dispose medications if other options arenot available. Mix your drugs with these household products, seal them in an airtight container andthrow it into the garbage. Call [facility]: [phone] to be sure your drugs can be [...] aware that I should contact my doctor. Patient/Camp Program Director Signature: Date/Time: Relationship to Patient: Witness Name/Signature: Date/Time: [facility]07-02-2023 Note ORIGINAL EXAMINATION: CT OF THE [...] Sign Date: 01/10/2023 4:59:31 PM Ordering Provider: [facility]07-02-2023 Note ORIGINAL EXAMINATION: CT OF THE [...] the resident's findings and interpretation. Interpreted by: rKishna Ramírez MD Preliminary Report By: Josh West Electronically signed By Krishna Ramírez MD Dictated Date: 01/10/2023 4:35:53 PM Prelim Date: 01/10/2023 4:57:49 PM Sign Date: 01/10/2023 4:59:31 PM Ordering Provider: ESSIE [facility]07-02-2023 Evaluation + Plan note Diagnostic Tests Pending * Urine Culture 01/10/23 [facility] 06-29-2023 Discharge summary Author Poli Barfield [facility] January 07, 2023 2:08pm Note Date/Time January 07, 2023 8:55 am [facility] Medical Records Department [address] [place] [address] Emergency Department Summary 01/07/23 MR#: [id number] Acct: [id number] Name: GHISLAINE GIVENS Rep #:[id number] : 1990 32 From: Poli Farah PCP: [facility] atus:REG ER Location: ED HPI HPI - [...] clinician: N/A This note was generated with 2 Minutes dictation software. It may contain incorrectwords, spelling, [...] % (Auto) 53.2 Lymph % (Auto) 38.5 [place] % (Auto) 5.9 Eos % (Auto) 1.0 [...] Days Qty: 21 0RF Primary Care Provider: [facility] Sophy Santiago Referrals: [facility] Sophy Santiago [Primary Care Provider] - 3-5 Days Activity [...] your Primary Care Provider. Call [facility] ([phone]) or report to the closest Emergency Room. Call 911 if necessary. 01/07/23 1408 <Electronically signed by Poli Farah> Cosigner Signature (if applicable): CC: [facility] ~ Signed [facility] Work Phone: 1(283) 438-534805-09-2023 History of Present illness Narrative* Andres Galaviz APRN.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 - 11/17/2022 8:45 AM EDT Images from [...] of care. This note was generated using 2 Minutes software. It may contain errors in wording, punctuation, or spelling. Andres Galaviz APRN.SUZANNE documented in this encounterWadsworth[facility]04-03-2023 Miscellaneous Notes* Telephone Encounter - Romana [...] ER if symptoms worsen. documented in this encounterWadsworth-Rittman [facility]03-30-2023 History of Present illness Narrative* Shamika Goins PA-C - 10/08/2022 9:08 AM EDT Images from the original note were not included. This note was created using Trada. Subjective Ghislaine Givens is a 32 year [...] tolerated it fine. Recommend she call her information assurance analyst today to be seen. Likely MRSA with [...] Z86.14 Shamika Goins PA-C documented in this encounterWadsworth-Rittman Hospital02-04-[address] Villatoro [facility] August 15, 2022 11:44am Note Date/Time August 15, 2022 1 1:38am [facility] Medical Records Department [address] [place] [address] Instructions for Home/Discharge Instructions 08/15/22 1132 MR#: [id number] Acct: [id number] Name: GHISLAINE GIVENS Rep #:[id number] : 1990 32 From: Lexus Villatoro MD [...] be sent to your preferred pharmacy, [facility] ?Please continue all other home medications -Please [...] Urbina MD; Dr. Sophy Gibbons ~ Signed [facility] Work Phone: 1(298) 445-635702-03-[address] Villatoro [facility] August 14, 2022 8:50am Note Date/Time August 14, 2022 8 :50am [facility] Medical Records Department [address] [place] [address] Progress Note - Hospitalist 08/14/22 0846 MR#: [id number] Acct: [id number] Name: GHISLAINE GIVENS Rep #:[id number] : 1990 32 From: Lexus Villatoro MD PCP: Dr. Sophy Gibbons Status:ADM IN Location: [address] 1 Subjective Subjective Irritable this morning, reports [...] Neut % (Auto) 65.7, Lymph % (Auto)22.3, [place] % (Auto) 8.6, Eos % (Auto) 0.6, [...] diabetes mellitus, hypertension, depression who presents to [facility] 08/12 with hyperglycemia andtachycardia. She was [...] on IV Rocephin and fluids Kidney ultrasound 2/: White blood cell count downtrending. Renal ultrasound [...] to evaluate for development of perinephric abscess 23: White blood cell count is improving urine [...] documentation, 30Minutes Charges/Coding Visit Charges Inpatient E&M: 93733 Subs Hosp L2 08/14/22 0850 <Electronically signed by Lexus Villatoro MD> Cosigner Signature (if applicable): CC: ~ Signed [facility] Work Phone: 1(471) 104-392702-02-[address] Villatoro [facility] August 13, 2022 4:34pm Note Date/Time August 13, 2022 8 :40am [facility] Medical Records Department [address] [place] [address] Progress Note - Hospitalist 08/13/22 0832 MR#: [id number] Acct: [id number] Name: GIVENSGHISLAINE VERENICE Rep #:[id number] : 1990 32 From: Lexus Villatoro MD PCP: Dr. Sophy Gibbons Status:ADM IN Location: [facility] [id number] Subjective Subjective Reports slight cough which [...] % (Auto) 69.8, Lymph % (Auto) 20.1, [place] % (Auto) 8.7, Eos % (Auto) 0.1, [...] (MDRD) Non-Af 61, BUN/Creatinine Ratio 7.2 L, Mzuojla088 H, Calcium 9.6, Magnesium 1.6, Total Bilirubin 0.50, AST 20, ALT 13, Alkaline Phosphatase 136 H, Troponin I High Sens 6, Total Protein 9.2 H, Albumin2.9 L, Globulin 6.3 H, Albumin/Globulin Ratio 0.5 L 08/12/22 16:22: Acetone Level NEGATIVE 08/12/22 16:22: Urine Color Yellow, Urine Clarity Clear, Urine pH 6.0, Ur Specific [place] 1.010, Urine Protein 100 H, Urine Glucose [...] 71.0 H, Lymph % (Auto) 17.3 L, [place] % (Auto) 9.7, Eos % (Auto) 0.2, Baso % (Auto) 0.5, Absolute Neuts (auto) 10.6 H, Absolute Lymphs (auto) 2.59, Nucleated RBC % 0 08/13/22 05:17: Sodium 134 L, Potassium 4.1, Chloride 102, Carbon Dioxide 22.0, Anion Gap 10, BUN 7, Creatinine 0.86, Estim Creat Clear Calc 89.54, Est GFR (MDRD) Af Amer 99, Est GFR (MDRD) Non-Af 82, BUN/Creatinine Ratio 8.1 L, [id number] H, Calcium 8.6, Magnesium 2.2, Total Bilirubin [...] diabetes mellitus, hypertension, depression who presents to [facility] 08/12 with hyperglycemia andtachycardia. She was [...] documentation, 40Minutes Charges/Coding Visit Charges Inpatient E&M: 92740 Subs Hosp L2 08/13/22 7421 <Electronically signed by Lexus Villatoro MD> Cosigner Signature (if applicable): CC: ~ Signed [facility] Work Phone: 1(137) 468-674302-02-[address] Christiansen [facility] August 12, 2022 10:42pm Note Date/Time August 12, 2022 3 :41pm [facility] Medical Records Department [address] [place] [address] Emergency Department Summary 08/12/22 MR#: [id number] Acct: [id number] Name: GHISLAINE GIVENS Rep #:[id number] : 1990 32 From: Alex Christiansen DO PCP: Dr. Sophy Gibbons Status:ADM IN Location: [address] History of Present Illness Chief Complaint: Hyperglycemia Narrative Narrative: 32-year-old female presenting with hyperglycemia. She states that [facility] and they were unable to check her blood sugar because they could not find a glucometer because she was tachycardic [facility] fear that she might be [...] which is completely healing and doing well. [facility] Medical History (Updated 08/12/22 @ [...] % (Auto) 69.8 Lymph % (Auto) 20.1 [place] % (Auto) 8.7 Eos % (Auto) 0.1 [...] Color Urine Clarity Urine pH Ur Specific [place] Urine Protein Urine Glucose (UA) Urine Ketones [...] (Auto) Neut % (Auto) Lymph % (Auto) [place] % (Auto) Eos % (Auto) Baso % [...] Clarity Clear Urine pH 6.0 Ur Specific [place] 1.010 Urine Protein 100 H Urine Glucose [...] (Auto) Neut % (Auto) Lymph % (Auto) [place] % (Auto) Eos % (Auto) Baso % [...] Color Urine Clarity Urine pH Ur Specific [place] Urine Protein Urine Glucose (UA) Urine Ketones [...] Discharge Plan Disposition Disposition: Acute Care [facility] Discharge Date/Time: 08/12/22 22:03 What to do if you have Problems For any increased pain, shortness of breath, bleeding, nausea or vomiting, chestpain, or any unexpected problems, contact your Primary Care Provider. Call [facility] ([phone]) or report to the closest Emergency Room. Call 911 if necessary. 08/12/222241 <Electronically signed by Alex Christiansen DO> Cosigner Signature (if applicable): CC: Dr. Sophy Gibbons ~ Signed [facility] Work Phone: 1(930) 104-248402-01-2023 History and physical note Author Dr. Urbina [facility] August 12, 2022 9:20pm Note Date/Time August 12, 2022 8 :09pm [facility] Medical Records Department [address] [place] [address] H&P Exam - Hospitalist 08/12/222008 MR#: [id number] Acct: [id number] Name: GHISLAINE GIVENS Rep #:[id number] : 1990 32 From: Valencia Urbina MD PCP: Dr. Sophy Gibbons Status:ADM IN Location: [facility] [id number]- 1 HPI - General General Date of Admission: 08/12/22 Date of Service: 08/12/22 Chief Complaint: Hyperglycemia, tachycardia HPI Narrative GHISLAINE GIVENS, is a 32 F who presents with the above. Patient has past medicalhistory of type II DM, recent discharge from the hospital on 06/29/22 for right diabetic foot infection status post right toe amputation. Patient was [facility] for hyperglycemia and tachycardia. Patient [...] the fat possible represent inflammatory lobar nephronia [facility] Medical History (Updated 08/12/22 @ [...] % (Auto) 69.8, Lymph % (Auto) 20.1, [place] % (Auto) 8.7, Eos % (Auto) 0.1, [...] (MDRD) Non-Af 61, BUN/Creatinine Ratio 7.2 L, [id number] H, Calcium 9.6, Magnesium 1.6, Total Bilirubin 0.50, AST 20, ALT 13, Alkaline Phosphatase 136 H, Troponin I High Sens 6, Total Protein 9.2 H, Albumin2.9 L, Globulin 6.3 H, Albumin/Globulin Ratio 0.5 L 08/12/22 16:22: Acetone Level NEGATIVE 08/12/22 16:22: Urine Color Yellow, Urine Clarity Clear, Urine pH 6.0, Ur Specific [place] 1.010, Urine Protein 100 H, Urine Glucose [...] 17:39 EST Reading Location ID and State: [facility] / [place] , Service support , Abdomen/Pelvis [...] room physician. Charges/Coding Visit Charges Inpatient E&M: 57025 Init Hosp L2 08/12/222119 <Electronically signed by Valencia Urbina MD> Cosigner Signature (if applicable): CC: Dr. Valencia Urbina MD; Dr. Sophy Gibbons~ Signed [facility] Work Phone: 1(529) 117-366709-12-2022 History of Present illness Narrative* Luis Mayes [...] 23, 2022 1:00 PM [facility] History of Present illness Narrative* Sid [...] CORONAVIRUS Sid Bravo MD documented in this encounterW[facility]07-25-20[facility] History of Present illness Narrative* Alyssa Jaime APRN.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 - 02/02/2022 9:56 AM EDT Subjective The history is provided by the patient. No reading intervention teacher was used. HPI Ghislaine Givens is a 32 year old female who presents today for CC of concerns that she was in ERye and was not treated for a pneumonia seen on CAT scan. Patient over the past month has been seen in ED for vomiting and abdominal pain. She is seeing GI at [facility], was seen on Wednesday and call them this morning. She is scheduled for a scope. Multiple CT scans that are negative, however yesterday's revealed possible pneumonia, pneumonitis. She was concerned she was not treated. She denies fever, chills, back pain or cough. BP 120/72 Pulse 74 Temp 36.2 C (97.2 F) Resp 16 Wt 92.5 kg (204 lb) LMP 05/18/2021 EsG616% BMI 32.93 kg/m Social History Tobacco Use Smoking status: Current Every Day Smoker Packs/day: 0.50 Years: 3.00 Pack years: 1.50 Types: Cigarettes Smokeless tobacco: Never Used Substance Use Topics Alcohol use: Yes Comment: Seldom Drug use: No PAST MEDICAL HISTORY Diagnosis Date Bipolar 1 disorder (HCC) 2008 Depression Elevated BP 04/28/2013 Insomnia I have confirmed and edited as necessary, the [facility] Review of Systems Constitutional: Negative for [...] indetail warranting prompt ER evaluation. Alyssa Jaime APRN.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 Medical Decision Making: Problems: Moderate: New problem with uncertain prognosis Data: Assessment requiring an independent historian(s) Risk: Low: Low risk from testing/treatment Medical Decision Making Level: 3 - Low documented in this encounterWadsworth[facility]07-25-2022 Instructions* Patient Instructions* Alyssa Jaime APRN.CNP - 02/02/2022 9:52 AM EDT Will set up follow for primary care and pulmonology To ER for worsening symptoms, increased pain, fevers, vomiting, decreased urine output, blood in her urine blood in her stools or dark tarry stools. documented in this encounterW[facility]11-04-2021 History of Present illness Narrative* Luis [...] 15, 2021 9:57 AM documented in this encounterWadsworth[facility]10-18-2013 History of Past illness Narrative* Problem [...] of this encounter (statuses as of 02/02/2022) [facility] History of Past illness Narrative* Problem [...] of this encounter (statuses as of 03/23/2022) [facility] of Past illness Narrative* Problem [...] of this encounter (statuses as of 10/08/2022) [facility] of Past illness Narrative* Problem [...] of this encounter (statuses as of 10/12/2022) [facility] of Past illness Narrative* Problem [...] of this encounter (statuses as of 11/17/2022) [facility] of Past illness Narrative* Problem [...] of this encounter (statuses as of 02/04/2023) [facility] of Past illness Narrative* Problem [...] of this encounter (statuses as of 02/24/2023) [facility] of Past illness Narrative* Problem [...] of this encounter (statuses as of 03/02/2023) [facility] of Past illness Narrative* Problem [...] of this encounter (statuses as of 03/02/2023) [facility] of Past illness Narrative* Problem [...] of this encounter (statuses as of 03/09/2023) [facility] of Past illness Narrative* Problem [...] of this encounter (statuses as of 03/10/2023) [facility] of Past illness Narrative* Problem [...] of this encounter (statuses as of 03/12/2023) [facility] of Past illness Narrative* Problem [...] of this encounter (statuses as of 03/26/2023) [facility] of Past illness Narrative* Problem [...] of this encounter (statuses as of 04/16/2023) [facility] of Past illness Narrative* Problem [...] of this encounter (statuses as of 07/02/2023) [facility]Dis[facility] summary Author Rickey Gifford [facility] May 09, 2023 2:02pm Note Date/Time May 09, 2023 2 :02pm [facility] Medical Records Department [address] [place] [address] Discharge Summary 05/09/23 1354 MR#: [id number] Acct: [id number] Name: GHISLAINE GIVENS Rep #:[id number] : 1990 33 From: Rickey Gifford DO PCP: Care Physician,No Primary Status :ADM IN Location: [address] Providers Date of Admission: 05/04/23 Primary Care Physician: No Primary Care Phys Consultations 05/04/23 19:30 Consult: Onc/Wound/stove refinisher Routine Comment: Reason For Visit: RIGHT FOOT [...] the pain. Data for OSH review through [facility]: * CT A/P on 03/03/23: Unremarkable. * [...] does have constipation. Also reviewing records through [facility]. Medications at Discharge Home Medications albuterol sulfate [...] to review data from outside hospitals including [facility] as well as [facility] and [place], [place]. Patient has had CAT scans, EGDs, [...] Provider: Rickey Gifford Primary Care Provider: Care Physician,Almita Primary Consulting Providers: Abdirizak Forrest Instructions Additional [...] [Primary Care Provider] - Amy Solorzano NP, LINE MAINTENANCE-C [Non-Staff -Ordering Privileges] - Within 2 Weeks Disposition Disposition (needs filled in before D/C Order can be placed): Home, Self Care Charges/Coding Visit Charges Inpatient E&M: 42265 Disch Hosp >30min 05/09/23 1402 <Electronically signed by Rickey Gifford DO> Cosigner Signature (if applicable): CC: YESY Forrest; LINE MAINTENANCEPanC Amy Solorzano; Dr. Rickey Gifford DO; No Primary Care Physician~ Signed [facility] Work Phone: Discharge summary Author Gale Lr [facility] Note Date/Time November 28, 2024 12:31 pm [facility] Medical Records Department [address] [place] [address] Discharge Summary 11/28/24 1203 MR#: [id number] Acct: [id number] Name: GHISLAINE GIVENS Rep #:[id number] : 1990 34 From: Gale Lr DO PCP: BROOKLYN Warren, PATRICE Statu s:ADM IN [id number] Providers Date of Admission: 11/25/24 Date of Discharge: 11/28/24 Primary Care Physician: BROOKLYN Warren, LINE MAINTENANCEPanC Consultations 11/25/24 15:14 Consult: General Surgery Routine [...] who presented to the emergency department at [facility] on 11/25/2024 with a chief complaint [...] (Auto) 49.8, Lymph % (Auto) 43.0 H, [place] % (Auto) 5.3, Eos % (Auto) 0.5, [...] to prior study. Reading Location: [place] [address] D/C Instructions Discharge Diet: 1800 Calorie Control [...] Attending Provider: Gale Lr Primary Care Provider: mAy Solorzano [facility] Consulting Providers: Annalise Welch; Brenda Rao [...] tomorrow to set up appointment) Amy Solorzano, LINE MAINTENANCE-C [Primary Care Provider] - In 1 Week Disposition Disposition (needs filled in before D/C Order can be placed): Home, Self Care Charges/Coding Visit Charges Inpatient E&M: 30168 Disch Hosp >30min 11/28/24 1231 <Electronically signed by Gale Lr DO> Cosigner Signature (if applicable): CC: BROOKLYN Solorzano; Dr. Gale Lr DO~ Signed [facility] Work Phone: Discharge summary Author Frantz Coulter [facility] Note Date/Time January 01, 2025 1:06 pm [facility] Medical Records Department [address] [place] [address] Instructions for Home/Discharge Instructions 01/01/25 1259 MR#: [id number] Acct: [id number] Name: GHISLAINE GIVENS Rep #:[id number] : 1990 34 From: Frantz Coulter DO PCP: BROOKLYN Warren, LINE MAINTENANCE-C Statu s:ADM IN Discharge Instructions Diet Discharge [...] SA Referrals / Follow Up: Amy Solorzano, LINE MAINTENANCE-C [Primary Care Provider] - Within 2 Weeks Disposition Disposition (needs filled in before D/C Order can be placed): Home, Self Care 01/01/25 1306<Electronically signed by Frantz Coulter DO>Frantz Coulter DO CC: BROOKLYN LINE MAINTENANCEPanC Amy Solorzano; Dr. Dewayne Grant, DO ~ Signed [facility] Work Phone: Discharge summary Author Frantz Coulter [facility] Note Date/Time January 01, 2025 1:34 pm [facility] Medical Records Department [address] [place] [address] Discharge Summary 01/01/25 1306 MR#: [id number] Acct: [id number] Name: GHISLAINE GIVENS Rep #:[id number] : 1990 34 From: Frantz Coulter DO PCP: BROOKLYN Warren, PATRICE Statu s:ADM IN [facility] Prov[facility] Date of Admission: 12/31/24 Date of Discharge: 01/01/25 Primary Care Physician: BROOKLYN Warren, LINE MAINTENANCEPanC Reason For Visit: DKA, CYCLICAL N/V AND [...] was seen in the emergency room at [facility] with complaints of uncontrolled nausea and [...] % (Auto) 64.4, Lymph % (Auto) 27.7, [place] % (Auto) 6.4, Eos % (Auto) 0.3, [...] Clarity Cloudy, Urine pH 6.0, Ur Specific [place] 1.020, Urine Protein 30 H, Urine Glucose [...] SA Referrals / Follow Up: Amy Solorzano, LINE MAINTENANCE-C [Primary Care Provider] - Within 2 Weeks Disposition Disposition (needs filled in before D/C Order can be placed): Home, Self Care Charges/Coding Visit Charges Inpatient E&M: 10093 Disch Hosp 01/01/25 3688 <Electronically signed by Frantz Coulter DO> Cosigner Signature (if applicable): CC: BROOKLYN LINE MAINTENANCE-C Amy Solorzano; Dr. Frantz Coulter, ~ Signed [facility] Work Phone: evaluation noteNo assessment information available [facility] Work Phone: evaluation note* Diagnosis Onset Date Resolution Status Abdominal pain acute [facility] Work Phone: evaluation note* Diagnosis Abnormal lung scan- Primary Nonspecific abnormal results of pulmonary system function study Nausea and vomiting, unspecified vomiting type documented in this encounter [facility] note* Diagnosis Acute cough- Primary Mild intermittent asthmatic bronchitis without complication [facility]* Diagnosis Onset Date Resolution Status Abdominal pain acute Encounter for pre-employment health screening examination acute [facility] Work Phone: evaluation note* Diagnosis Onset Date Resolution Status Abdominal pain acute Encounter for pre-employment health screening examination acute Cellulitis of foot, right ac [place] Diabetes acute Diabetic foot infection acut e Leukocytosis acute [facility] Work Phone: evaluation note* Diagnosis Onset Date Resolution Status Abdominal pain acute Encounter for pre-employment health screening examination acute Cellulitis and abscess of right lower extremity acute Cellulitis of foot, right ac [place] Diabetes acute Diabetes mellitus with diabetic polyneuropathy acute Diabetic foot infection acut e Leukocytosis acute Osteomyelitis acute Type 2 diabetes mellitus with foot ulcer acute 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 [facility] Work Phone: evaluation note* Diagnosis Onset Date Resolution Status Cellulitis and abscess of right lower extremity acute Cellulitis of foot, right ac [place] Diabetes acute Diabetes mellitus with diabetic polyneuropathy [...] acut e Lactic acidosis acute Osteomyelitis acute [facility] Work Phone: evaluation note* Diagnosis Onset Date Resolution Status Cellulitis and abscess of right lower extremity acute Cellulitis of foot, right ac [place] Diabetes acute Diabetes mellitus with diabetic polyneuropathy acute Diabetic foot infection acut e Leukocytosis acute Osteomyelitis acute Type 2 diabetes mellitus with foot ulcer acute 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 Cellulitis and abscess of right lower extremity acute Cellulitis of foot, right ac [place] Diabetes mellitus with diabetic polyneuropathy acute Diabetic foot infection acut e Lactic acidosis acute Osteomyelitis acute Type 2 diabetes mellitus with foot ulcer acute [facility] Work Phone: Evaluation note* Diagnosis Onset Date Resolution Status Cellulitis and abscess of right lower extremity acute Cellulitis of foot, right ac [place] Diabetic foot infection acut e Osteomyelitis acute Lactic acidosis resolved Acute pyelonephritis acute [facility] Work Phone: Evaluation note* Diagnosis Toe infection- Primary Unspecified local infection of skin and subcutaneous tissue Facial infection Other specified infectious and parasitic diseases History of MRSA infection Personal history of Methicillin resistant Staphylococcus aureus [facility]* Diagnosis Facial infection- Primary Other specified infectious and parasitic diseases documented in this encounter [facility] note* Diagnosis Onset Date Resolution Status Acute hypokalemia acute Cannabis abuse acute Diabetes acute Elevated serum creatinine ac [place] Failure of outpatient treatment acute Intractable nausea and vomiting acute [facility] Work Phone: Evaluation note* Diagnosis Onset Date Resolution Status Acute hypokalemia acute Cannabis abuse acute Diabetes acute Intractable nausea and vomiting acute [facility] Work Phone: Evaluation note* Diagnosis Nausea and vomiting, unspecified vomiting type- Primary Syncope and collapse documented in this encounter [facility] note* Diagnosis Generalized abdominal pain- Primary Abdominal pain, generalized documented in this encounter [facility] note* Diagnosis Chronic nausea- Primary Nausea alone Chronic abdominal pain Abdominal pain, unspecified site documented in this encounter [facility] note* Diagnosis Vomiting, unspecified vomiting type, unspecified whether nausea present- Primary Chronic nausea Nausea alone documented in this encounter [facility] note* Diagnosis Chronic abdominal pain- Primary Abdominal pain, unspecified site documented in this encounter [facility] note* Diagnosis SOB (shortness of breath)- Primary Shortness of breath Abdominal pain, unspecified abdominal location documented in this encounter [facility] note* Diagnosis Onset Date Resolution Status Acute hypokalemia acute Cannabis abuse acute Diabetes acute Intractable nausea and vomiting acute Diabetes acute Diabetic foot infection acut e Leukocytosis acute [facility] Work Phone: Evaluation note* Diagnosis Onset [...] right foot with fat layer exposed chronic [facility] Work Phone: Evaluation note* Diagnosis Onset Date Resolution Status Diabetic foot infection reso lved Gas gangrene resolved Leukocytosis resolved Non-pressure chronic ulcer o f other part of right foot with fat layer exposed resolved Tightness of right heel cord resolved [facility] Work Phone: Evaluation note* Diagnosis Pain of right eye- Primary Pain in or around eye documented [facility] this encounter [facility]* Diagnosis Onset Date Resolution Status Diabetic [...] right foot with fat layer exposed resolved [facility] Work Phone: Evaluation note* Diagnosis Onset Date Resolution Status Acute painful diabetic polyneuropathy acute Other acute osteomyelitis, right ankle and foot acute Non-pressure chronic ulcer o f other part of right foot with fat layer exposed resolved [facility] Work Phone: Evaluation note* Diagnosis Nausea- Primary Nausea alone documented [facility]* Diagnosis Type II or unspecified type diabetes mellitus without mention of complication, uncontrolled- Primary Morbid obesity with BMI of 40.0-44.9, adult (HCC) Morbid obesity Elevated BP Elevated blood pressure reading without diagnosis of hypertension Acute cough Mild intermittent asthmatic bronchitis without complication documented [facility]* Diagnosis Type II or unspecified type diabetes mellitus without mention of complication, uncontrolled- Primary Morbid obesity with BMI of 40.0-44.9, adult (HCC) Morbid obesity Elevated BP Elevated blood pressure reading without diagnosis of hypertension Cough documented [facility] this encounter [facility]* Diagnosis Type II or unspecified type diabetes mellitus without mention of complication, uncontrolled- Primary Morbid obesity with BMI of 40.0-44.9, adult (HCC) Morbid obesity Elevated BP Elevated blood pressure reading without diagnosis of hypertension Bronchopneumonia- Primary Bronchopneumonia, organism unspecified Mild intermittent asthma, uncomplicated Unspecified asthma documented in this encounter [facility] note* Diagnosis Type II or unspecified type diabetes mellitus without mention of complication, uncontrolled- Primary Morbid obesity with BMI of 40.0-44.9, adult (HCC) Morbid obesity Elevated BP Elevated blood pressure reading without diagnosis of hypertension Acute cough- Primary Acute cough documented in this encounter [facility] note* Diagnosis Type II or unspecified type diabetes mellitus without mention of complication, uncontrolled- Primary Morbid obesity with BMI of 40.0-44.9, adult (HCC) Morbid obesity Elevated BP Elevated blood pressure reading without diagnosis of hypertension Acute cough documented in this encounter [facility] note* Diagnosis Onset Date Resolution Status Admit Date Acute proctitis acute November 25, 2024 1:38pm Colitis acute November 25, 2024 1:38pm Fecal impaction acute November 25, 2024 1:38pm [facility] Work Phone: Evaluation note* Diagnosis Acute pancreatitis, unspecified complication status, unspecified pancreatitis type- Primary documented in this encounter [facility] note* Diagnosis Right lower quadrant abdominal pain- Primary Right upper quadrant abdominal pain Nausea and vomiting, unspecified vomiting type documented in this encounter [facility] note* Diagnosis Abdominal pain, epigastric- Primary documented in this encounter [facility] note* Diagnosis Generalized abdominal pain- Primary Abdominal pain, generalized Nausea Nausea alone [facility] Author [facility]. Urbina [facility] August 12, 2022 9:20pm Note Date/Time August 12, 2022 8 :09pm [facility] Medical Records Department [address] [place] [address] H&P Exam - Hospitalist 08/12/222008 MR#: [id number] Acct: [id number] Name: GHISLAINE GIVENS Rep #:[id number] : 1990 32 From: Valencia Urbina MD PCP: Dr. Sophy Gibbons Status:ADM IN Location: [facility] [id number] HPI - General General Date of Admission: 08/12/22 Date of Service: 08/12/22 Chief Complaint: Hyperglycemia, tachycardia HPI Narrative GHISLAINE GIVENS, is a 32 F who presents with the above. Patient has past medicalhistory of type II DM, recent discharge from the hospital on 06/29/22 for right diabetic foot infection status post right toe amputation. Patient was referred to the emergency room from [facility] for hyperglycemia and tachycardia. 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 [facility] Medical History (Updated 08/12/22 @ [...] % (Auto) 69.8, Lymph % (Auto) 20.1, [place] % (Auto) 8.7, Eos % (Auto) 0.1, [...] (MDRD) Non-Af 61, BUN/Creatinine Ratio 7.2 L, [id number] H, Calcium 9.6, Magnesium 1.6, Total Bilirubin 0.50, AST 20, ALT 13, Alkaline Phosphatase 136 H, Troponin I High Sens 6, Total Protein 9.2 H, Albumin2.9 L, Globulin 6.3 H, Albumin/Globulin Ratio 0.5 L 08/12/22 16:22: Acetone Level NEGATIVE 08/12/22 16:22: Urine Color Yellow, Urine Clarity Clear, Urine pH 6.0, Ur Specific [place] 1.010, Urine Protein 100 H, Urine Glucose [...] room physician. Charges/Coding Visit Charges Inpatient E&M: 30070 Init Hosp L2 08/12/222119 <Electronically signed by Valencia Urbina MD> Cosigner Signature (if applicable): CC: Dr. Valencia Urbina MD; Dr. Sophy Gibbons~ Signed [facility] Work Phone: History and physical note Author David Bain [facility] Note Date/Time December 30, 2024 1:09 pm [facility] Medical Records Department [address] [facility] [place] [address] H&P Exam - Hospitalist 12/30/24 1248 MR#: [id number] Acct: [id number] Name: GHISLAINE GIVENS Rep #:[id number] : 1990 34 From: David Gupta PCP: [place], LINE MAINTENANCE-C Statu s:ADM IN Location: ICU CVICU20 3-1 [...] DKA therefore admitted. Vitals in normal limit. [facility] Medical History Diabetes GERD (gastroesophageal reflux disease) [...] (Auto) 70.7 H, Lymph % (Auto) 23.6, [place] % (Auto) 4.8, Eos % (Auto) 0.0, [...] Sl. Cloudy, Urine pH 5.0, Ur Specific [place] 1.025, Urine Protein 30 H, Urine Glucose [...] for 2 weeks. Weight loss counseling done. Nuclear Medicine Officer consult DVT prophylaxis, low risk: Early ambulation encouraged Living will/advanced directive/end of life care: Patient does not have living will or advanced directive. She does not have the year power of consumer attorney for health. After discussion of benefits/risks procedures involved with full code,DNR CC arrest and DNR CC, the patient opted for full code. Patient does want artificial life support including intubation, tube feed, ventilator and/chest compression, central venous catheter, vasopressor and DC shock if needed Total time spent in tgiw-vl-imol encounter in discussion of advanced directive 17 minutes. Charges/Coding Visit Charges Inpatient E&M: 25175 Init Hosp L3 Procedures Hospitalists Procedures: 83029 Advncd Care Plan 30 Min 12/30/24 1309 <Electronically signed by David Bain MD> Cosigner Signature (if applicable): CC: [facility] LINE MAINTENANCE-C Amy Solorzano; Dr. David Bain MD~ Signed [facility] Work Phone: Hospital course Narrative No data available for this section [facility] Hospital Discharge instructions Additional Instructions Avoid marijuana use. Use the capsaicin cream every 6 hours as needed. Medication prescribed to use as needed. Continue oral fluids at home for hydration. Follow-up with your doctor.[facility] Work Phone: Hospital Discharge instructions Additional Instructions Please decrease your marijuana use. Please maintain hydration, use antinausea medicine as needed.[facility] Work Phone: Hospital Discharge instructions [...] concerns return [facility] the [facility] Work Phone: Hospital Discharge instructions Additional Instructions Your CT scan showed inflammation of the rectum consistent with acute proctitis. This can be secondary to infection or just inflammation but because of your diabetes and elevation of your white count take the antibiotic to resolve an infectious cause. If you have any further concerns please return for repeat evaluationWPremier [facility] Work Phone: Hospital Discharge instructions Additional Instructions I would recommend gentle massage of the tear duct. Warm compresses as discussed. I would highly encourage ophthalmologic follow-up. Monitor for worsening symptoms return if needed.[facility] Work Phone: Hospital Discharge instructions [...] letting me be involved in your surgical care![facility] Work Phone: Hospital Discharge instructions Additional Instructions Continue to avoid marijuana use. Use medications as prescribed for your symptoms. Continue oral fluids for hydration. Follow-up with your GI team.[facility] Work Phone: Hospital Discharge instructions* Attachments The following attachments cannot be sent through Care Everywhere. * Nausea and Vomiting (Citizen Of [place]) * Abdominal Pain (Citizen [place]) [facility] (narrative)* Diagnostic Procedure Only (Routine) - New Request Specialty Diagnoses / Procedures Referred By Ubaldo whitaker Referred To Contact MOLECULAR & FUNCTIONAL IMAGING Diagnoses Nausea Procedures NM GASTRIC EMPTYING SOLID GASTRIC EMPTYING STUDY Almita Trammell PA-C [address] [place] [address] Molecular & Functional Imaging [address] [place] [address] Referral ID Status Reason Start Date Expiration Date Visits Requested Visits Authorized [id number] New Request Auto-Generat ed Referral 03/02/2023 03/31/2024 1 1 [facility]ative)No reason for referral information availableWPremier Health Work Phone: Chief Complaint and Reason for [...] INFECTION DIABETIC FOOT INFECTION DIABETIC FOOT INFECTION [facility] LABWORK Reason for Visit Abdominal pain Encounter [...] INFECTION DIABETIC FOOT INFECTION DIABETIC FOOT INFECTION [facility] LABWORK [facility] LAB WORK Reason for Visit Abdominal pain [...] INFECTION DIABETIC FOOT INFECTION DIABETIC FOOT INFECTION [facility] LABWORK [facility] LAB WORK [facility] CMP/CBC Reason for Visit Abdominal pain [...] INFECTION DIABETIC FOOT INFECTION DIABETIC FOOT INFECTION [facility] LABWORK [facility] LAB WORK [facility] CMP/CBC DIABETIC FOOT ULCER Reason for [...] INFECTION DIABETIC FOOT INFECTION DIABETIC FOOT INFECTION [facility] LABWORK FPC LAB WORK [facility] LABWORK CMP/CBC DIABETIC FOOT ULCER Reason for [...] INFECTION DIABETIC FOOT INFECTION DIABETIC FOOT INFECTION [facility] LABWORK FPC LAB WORK [facility] LABWORK CMP/CBC DIABETIC FOOT ULCER DIAULCER DIAULCER [...] diabetes mellitus with foot ulcer Chief Complaint [facility] CMP/CBC DIABETIC FOOT ULCER DIAULCER DIAULCER DIAULCER DIAULCER DIAULCER ACUTE PYELONEPHRITIS ACUTE PYELONEPHRITIS Reason for Visit Cellulitis and absce ss of right lower extremity Cellulitis of foot, right Diabetic foot infection Osteomyelitis Lactic acidosis Acute pyelonephritis Chief Complaint [facility] LABWORK CMP/CBC DIABETIC FOOT ULCER DIAULCER DIAULCER [...] am N/v January 04, 2025 5:55 am Chief Complaint Admit Date PVD, BILAT [...] am N/v January 04, 2025 5:55 am SUICIDE ATTEMPT-OVERDOSE OF INSULIN January 07, 2025 3:24pm Reason for Visit Admit Date Abdominal pain [...] with peripheral neuropathy December 31, 2024 10:59pm Acute hypokalemia January 07, 2025 3:24 pm Hx of type 2 diabetes mellitus December 3:24pm Insulin overdose January 07, 2025 3:24 pm Suicidal behavior January 07, 2025 3:24 pm Chief Complaint Admit Date PVD, BILAT LEG [...] am N/v January 04, 2025 5:55 am SUICIDE ATTEMPT-OVERDOSE OF INSULIN January 07, 2025 3:24pm SUICIDE ATTEMPT-OVERDOSE OF INSULIN January 07, 2025 6:08pm SUICIDE ATTEMPT-OVERDOSE OF INSULIN January 08, 2025 4:37pm Advance Directives No Advanced Directives Records Found Advance Directive Response Recorded Date/ Time Living Will No October 24, 2021 8:30am Power of Minister Assistant No October 24 8:30am Advance Directive Response Recorded Date/ Time Living Will No October 29, 2021 9:39am Power of Minister Assistant No October 29 9:39am Advance Directive Response Recorded Date/ Time Living Will No November 16, 2021 8: 50am Power of Minister Assistant No November 16, 2021 8:50am Advance Directive Response Recorded Date/ Time Living Will No January 16, 2022 2 :46pm Power of Minister Assistant No January 16, 2022 2:46pm Advance Directive Response Recorded Date/ Time Living Will No January 22, 2022 9:41pm Power of Minister Assistant No January 22 9:41pm Advance Directive Response Recorded Date/ Time Living Will No January 23, 2022 4:29pm Power of Minister Assistant No January 23 4:29pm Advance Directive Response Recorded Date/ Time Living Will No January 26, 2022 12:34pm Power of Minister Assistant No January 26 12:34pm Advance Directive Response Recorded Date/ Time Living Will No February 01, 2022 1:07pm Power of Minister Assistant No February 01 1:07pm Advance Directive Response Recorded Date/ Time Living Will No April 05, 2022 11:53am Power of Minister Assistant No March 11:53am Advance Directive Response Recorded Date/ Time Living Will No April 06, 2022 12:58pm Power of Minister Assistant No March 12:58pm Advance Directive Response Recorded Date/ Time Living Will No April 06, 2022 4:07pm Power of Minister Assistant No March 4:07pm Advance Directive Response Recorded Date/ Time Living Will No June 24, 2 022 3:40pm Power of Minister Assistant No June 24, 2022 3:40pm Advance Directive Response Recorded Date/ Time Living Will No August 12 5:35pm Power of Minister Assistant No August 12, 2022 5:35pm Advance Directive Response Recorded Date/ Time Living Will No August 12 10:55pm Power of Minister Assistant No August 12, 2022 10:55pm Advance Directive Response Recorded Date/ Time Living Will No January 07, 2023 8:51am Power of Minister Assistant No January 07 8:51am Advance Directive Response Recorded Date/ Time Living Will No January 09, 2023 1 2:00pm Power of Minister Assistant No January 09, 2023 12:00pm Advance Directive Response Recorded Date/ Time Living Will No January 12, 2023 1 2:39am Power of Minister Assistant No January 12, 2023 12:39am Advance Directive Response Recorded Date/ Time Living Will No January 12, 2023 1 2:53pm Power of Minister Assistant No January 12, 2023 12:53pm Advance Directive Response Recorded Date/ Time Living Will No January 14, 2023 4 :21pm Power of Minister Assistant No January 14, 2023 4:21pm Advance Directive Response Recorded Date/ Time Living Will No January 25, 2023 11:41am Power of Minister Assistant No January 25 11:41am Advance Directive Response Recorded Date/ Time Living Will No February 08, 2023 12:35pm Power of Minister Assistant No February 08 12:35pm Latest Code Status on File Code Status Date Activated Date Inactivated Comments Full Code 02/18/2023 1:58 AM 02/20/2023 4:13 PM Question Answer Comments Full Code Order Discussed With: Patient Advance Directive Response Recorded Date/ Time Living Will No February 26 12:10am Power of Minister Assistant No February 26, 2 023 12:10am Latest [...] Will No March 06 8:38am Power of Minister Assistant No March 06 023 8:38am Latest Code [...] Will No May 04 12:14pm Power of Minister Assistant No May 04, 2023 12:14pm Advance Directive Response Recorded Date/ Time Living Will No May 04 6:42pm Power of Minister Assistant No May 04, 2023 6:42pm Advance Directive Response Recorded Date/ Time Living Will No May 04 5:42pm Power of Minister Assistant No May 04, 2023 5:42pm Advance Directive Response Recorded Date/ Time Living Will No June 28 023 9:27am Power of Minister Assistant No June 28, 2023 9:27am Advance Directive Response Recorded Date/ Time Living Will No July 02 023 9:33am Power of Minister Assistant No July 02, 2023 9:33am Advance Directive Response Recorded Date/ Time Living Will No July 16 9:15am Power of Minister Assistant No July 16 024 9:15am Advance Directive Response Recorded Date/ Time Living Will No July 16 10:15am Power of Minister Assistant No July 16 024 10:15am Date Activated [...] No June 25, 023 9:33am Power of Minister Assistant No June 25, 2023 9:33am Advance Directive Response Recorded Date/ Time Living Will No June 26, 023 12:21pm Power of Minister Assistant No June 26, 2023 12:21pm Advance Directive Response Recorded Date/ Time Living Will No June 27, 023 5:53am Power of Minister Assistant No June 27, 2023 5:53am Advance Directive Response Recorded Date/ Time Do you have a Healthcare Power of Minister Assistant? No November 25, 2024 8:56am Advance Directive Response Recorded Date/ Time Do you have a Healthcare Power of Minister Assistant? No November 25, 2024 2:54pm Advance Directive Response Recorded Date/ Time Do you have a Healthcare Power of Minister Assistant? No November 25, 2024 2:54pm Do you have a Healthcare Power of Minister Assistant? No December 30, 2024 10:23am Advance Directive Response Recorded Date/ Time Do you have a Healthcare Power of Minister Assistant? No November 25, 2024 2:54pm Do you have a Healthcare Power of Minister Assistant? No December 30, 2024 1:37pm Advance Directive Response Recorded Date/ Time Do you have a Healthcare Power of Minister Assistant? No November 25, 2024 2:54pm Do you have a Healthcare Power of Minister Assistant? No December 30, 2024 1:37pm Do you have a Healthcare Power of Minister Assistant? No December 31, 2024 7:36pm Advance Directive Response Recorded Date/ Time Do you have a Healthcare Power of Minister Assistant? No November 25, 2024 2:54pm Do you have a Healthcare Power of Minister Assistant? No December 30, 2024 1:37pm Do you have a Healthcare Power of Minister Assistant? No December 31, 2024 11:46pm Advance Directive Response Recorded Date/ Time Do you have a Healthcare Power of Minister Assistant? No November 25, 2024 2:54pm Do you have a Healthcare Power of Minister Assistant? No December 30, 2024 1:37pm Do you have a Healthcare Power of Minister Assistant? No December 31, 2024 11:46pm Do you have a Healthcare Power of Minister Assistant? No January 02, 2025 6:59am Advance Directive Response Recorded Date/ Time Do you have a Healthcare Power of Minister Assistant? No November 25, 2024 2:54pm Do you have a Healthcare Power of Minister Assistant? No December 30, 2024 1:37pm Do you have a Healthcare Power of Minister Assistant? No December 31, 2024 11:46pm Do you have a Healthcare Power of Minister Assistant? No January 04, 2025 5:55am Do you have a Healthcare Power of Minister Assistant? No January 02, 2025 6:59am Advance Directive Response Recorded Date/ Time Do you have a Healthcare Power of Minister Assistant? No November 25, 2024 2:54pm Do you have a Healthcare Power of Minister Assistant? No December 30, 2024 1:37pm Do you have a Healthcare Power of Minister Assistant? No December 31, 2024 11:46pm Do you have a Healthcare Power of Minister Assistant? No January 04, 2025 5:55am Do you have a Healthcare Power of Minister Assistant? No January 02, 2025 6:59am Do you have a Healthcare Power of Minister Assistant? No January 07, 2025 12:53pm Advance Directive Response Recorded Date/ Time Do you have a Healthcare Power of Minister Assistant? No November 25, 2024 2:54pm Do you have a Healthcare Power of Minister Assistant? No December 30, 2024 1:37pm Do you have a Healthcare Power of Minister Assistant? No December 31, 2024 11:46pm Do you have a Healthcare Power of Minister Assistant? No January 04, 2025 5:55am Do you have a Healthcare Power of Minister Assistant? No January 02, 2025 6:59am Do you have a Healthcare Power of Minister Assistant? No January 07, 2025 5:05pm Family History No Family History Records Found [...] scan Procedures CONSULT TO PULM/CRITICAL CARE OFFICE/OUTPATIENT [facility] 60-74 MINUTES Alyssa Jaime, ROSA.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 [address] [place] [address] Referral ID Status Reason Start Date Expiration Date Visits Requested Visits Authorized [id number] Authorized PCP Requested Referral 02/02/2022 02/02/2023 1 1 Specialty Diagnoses / Procedures Referred By Contac t Referred To Contact Pain Management Diagnoses Chronic abdominal pain Procedures CONSULT TO PAIN MGT OFFICE/OUTPATIENT [facility] 60-74 MINUTES Pilar Magdaleno APRN.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 [address] [id number] Referral ID Status Reason Start Date Expiration Date Visits Requested Visits Authorized [id number] Authorized PCP Requested Referral 02/23/2023 02/23/2024 1 1 Specialty Diagnoses / Procedures Referred By Contac t Referred To Contact Gastroenterology Diagnoses Chronic nausea Procedures CONSULT TO GASTROENTEROLOGY OFFICE/OUTPATIENT [facility] 60-74 MINUTES Pilar Magdaleno, ROSA.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 [address] [place] [address] Referral ID Status Reason Start Date Expiration Date Visits Requested Visits Authorized [id number] Authorized PCP Requested Referral 02/23/2023 02/23/2024 1 1 Referral ID Status Reason Start Date Expiration Date Visits Requested Visits Authorized [id number] Authorized PCP Requested Referral 03/12/2023 03/11/2024 1 [...] or prosecute any alcohol or drug abuse patient.[facility] the event this information is protected by the Federal Confidentiality of Alcohol and Drug Abuse Patient Records regulations: The Federal rules restrict any use of the information to criminally investigate or prosecute any alcohol or drug abuse patient.[facility] the event this information is protected by the Federal Confidentiality of Alcohol and Drug Abuse Patient Records regulations: The Federal rules restrict any use of the information to criminally investigate or prosecute any alcohol or drug abuse patient.[facility] HospitalIn the event this information is protected by the Federal Confidentiality of Alcohol and Drug Abuse Patient Records regulations: The Federal rules restrict any use of the information to criminally investigate or prosecute any alcohol or drug abuse patient.[facility] HospitalIn the event this information is protected by the Federal Confidentiality of Alcohol and Drug Abuse Patient Records regulations: The Federal rules restrict any use of the information to criminally investigate or prosecute any alcohol or drug abuse patient.[facility] HospitalIn the event this information is protected by the Federal Confidentiality of Alcohol and Drug Abuse Patient Records regulations: The Federal rules restrict any use of the information to criminally investigate or prosecute any alcohol or drug abuse patient.[facility] HospitalIn the event this information is protected by the Federal Confidentiality of Alcohol and Drug Abuse Patient Records regulations: The Federal rules restrict any use of the information to criminally investigate or prosecute any alcohol or drug abuse patient.[facility] HospitalIn the event this information is protected by the Federal Confidentiality of Alcohol and Drug Abuse Patient Records regulations: The Federal rules restrict any use of the information to criminally investigate or prosecute any alcohol or drug abuse patient.[facility] HospitalIn the event this information is protected by the Federal Confidentiality of Alcohol and Drug Abuse Patient Records regulations: The Federal rules restrict any use of the information to criminally investigate or prosecute any alcohol or drug abuse patient.[facility] HospitalIn the event this information is protected by the Federal Confidentiality of Alcohol and Drug Abuse Patient Records regulations: The Federal rules restrict any use of the information to criminally investigate or prosecute any alcohol or drug abuse patient.[facility] HospitalIn the event this information is protected by the Federal Confidentiality of Alcohol and Drug Abuse Patient Records regulations: The Federal rules restrict any use of the information to criminally investigate or prosecute any alcohol or drug abuse patient.[facility] HospitalIn the event this information is protected by the Federal Confidentiality of Alcohol and Drug Abuse Patient Records regulations: The Federal rules restrict any use of the information to criminally investigate or prosecute any alcohol or drug abuse patient.[facility] HospitalIn the event this information is protected by the Federal Confidentiality of Alcohol and Drug Abuse Patient Records regulations: The Federal rules restrict any use of the information to criminally investigate or prosecute any alcohol or drug abuse patient.[facility] HospitalIn the event this information is protected by the Federal Confidentiality of Alcohol and Drug Abuse Patient Records regulations: The Federal rules restrict any use of the information to criminally investigate or prosecute any alcohol or drug abuse patient.[facility] HospitalIn the event this information is protected by the Federal Confidentiality of Alcohol and Drug Abuse Patient Records regulations: The Federal rules restrict any use of the information to criminally investigate or prosecute any alcohol or drug abuse patient.[facility] HospitalIn the event this information is protected by the Federal Confidentiality of Alcohol and Drug Abuse Patient Records regulations: The Federal rules restrict any use of the information to criminally investigate or prosecute any alcohol or drug abuse patient.[facility] HospitalIn the event this information is protected by the Federal Confidentiality of Alcohol and Drug Abuse Patient Records regulations: The Federal rules restrict any use of the information to criminally investigate or prosecute any alcohol or drug abuse patient.[facility] HospitalIn the event this information is protected by the Federal Confidentiality of Alcohol and Drug Abuse Patient Records regulations: The Federal rules restrict any use of the information to criminally investigate or prosecute any alcohol or drug abuse patient.[facility] ClinicIn the event this information is protected by the Federal Confidentiality of Alcohol and Drug Abuse Patient Records regulations: The Federal rules restrict any use of the information to criminally investigate or prosecute any alcohol or drug abuse patient.[facility] HospitalIn the event this information is protected by the Federal Confidentiality of Alcohol and Drug Abuse Patient Records regulations: The Federal rules restrict any use of the information to criminally investigate or prosecute any alcohol or drug abuse patient.[facility] HospitalIn the event this information is protected by the Federal Confidentiality of Alcohol and Drug Abuse Patient Records regulations: The Federal rules restrict any use of the information to criminally investigate or prosecute any alcohol or drug abuse patient.[facility] Reason for Visit (unrecogniz ed section [...] Referred By Ubaldo whitaker Referred To Contact Gastroenterology Diagnoses Chronic nausea Procedures CONSULT TO GASTROENTEROLOGY OFFICE/OUTPATIENT [facility] 60-74 MINUTES Pilar Magdaleno APRN.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 [address] [place] [address] Referral ID Status Reason Start Date Expiration Date V isits Requested Visits Authorized [id number] Closed PCP Requested Referral 02/23/2023 02/23/2024 1 [...] intermittent wheeze & SOB; DX Bronchopneumonia 06/26/24 Reason Comments Abdominal Pain Pt arrived via [facility] with complaints of epigastric pain abdominal pain and nausea/vomiting x 6 hours-pt just stated she's been dealing with this for a month; hx: DM; alert and oriented x 4, GCS: 15; states period ended today; homeless Reason Comments Abdominal Pain Pt C/o lower right a bdominal pain, x 2 days. Pt sts that she was here 2 days ago and diagnosed with pancreatitis. Pt sts that she it has continued to get worse. Reason Comments Abdominal Pain Pt arrived from [facility] for abdominal pain; hx: pancreatitis; pt was recently sd'ed for abdominal pain; alert and oriented x 4; GCS: 15 Reason Comments Abdominal Pain Care Teams (unrecognized sec tion and content) [...] Dr. Lexus Villatoro MD Attending Provider Active Supervisory Geographer Relationship Specialty Start Date End Date mAy Solorzano, LINE MAINTENANCE [address] [place] [address] PCP - General Family Medicine 11/17/22 Team Status: Active Member Role Status Dates Dr. Esther Cooney MD Family Provider Active [facility] Primary Care Provider A ctive Team Status: Inactive Member Role Status Dates Dr. Sophy Gibbons Primary Care Provider Active Dr. Tim Vidal DO Attending Provider, Emergency P rovider Active Team Status: Active Member Role Status Dates [facility] Primary Care Provider A ctive Amy Solorzano LINE MAINTENANCE, LINE MAINTENANCE-C Attending Provider, Referrin g Provider Active Team Status: Inactive Member Role Status Dates [facility] Primary Care Provider A ctive Dr. Poli Barfield DO Emergency Provider Active Team Status: Inactive Member Role Status Dates [facility] Primary Care Provider A ctive Dr. Deann Guerrero MD Emergency Provider Active Team Status: Inactive Member Role Status Dates [facility] Primary Care Provider A ctive Dr. Perico Norman DO Emergency Provider Active Team Status: Inactive Member Role Status Dates [facility] Primary Care Provider A ctive Dr. Fabricio Guevara MD Emergency Provider Active Team Status: Active Member Role Status [facility] Primary Care Provider A ctive Dr. Willie Dhillon MD Emergency Provider Active Dr. Lexus Villatoro MD Admit Provider, At tending Provider, Other Provider Active Team Status: Inactive Member Role Status Dates [facility] Primary Care Provider A ctive Dr. Willie Dhillno MD Emergency Provider Active Dr. Lexus Villatoro MD Admit Provider, Attending Provid er Active Team Status: Inactive Member Role Status Dates [facility] Primary Care Provider A ctive Dr. Poli Barfield DO Attending Provider, Emergency Provide r Active Team Status: Inactive Member Role Status [facility] Primary Care Provider A ctive Dr. Deann Guerrero MD Attending Provider, Emergency Provider Active Team Status: Inactive Member Role Status Dates [facility] Primary Care Provider A ctive Amy Solorzano LINE MAINTENANCE, LINE MAINTENANCE-C Attending Provider, Referrin g Provider Active Team Status: Inactive Member Role Status Dates [facility] Primary Care Provider A ctive Dr. Perico Norman DO Attending Provider, Emergency Pr ovider Active Team Status: Inactive Member Role Status Dates [facility] Primary Care Provider A ctive Dr. Fabricio Guevara MD Attending Provider, Emergency Pro vider Active Supervisory Geographer Relationship Specialty Start Date End Date Amy Solorzano [address] [place] [address] PCP - General 01/24/23 Supervisory Geographer Relationship Specialty Start Date End Date Rashad Amy, LINE MAINTENANCE [address] [place] [address] PCP - General Family Medicine 11/17/22 Team Status: Inactive Member Role Status Dates [facility] Primary Care Provider A ctive Dr. Javy Doss , DO Emergency Provider Active Supervisory Geographer Relationship Specialty Start Date End Date Amy Solorzano, LINE MAINTENANCE [address] [place] [address] PCP - General Family Medicine 11/17/22 Team Status: Inactive Member Role Status Dates [facility] Primary Care Provider A ctive Dr. Javy Doss , DO Attending Provider, Emergency Pro vider Active Team Status: Inactive Member Role Status Dates [facility] Primary Care Provider A ctive Dr. Tim Vidal , DO Emergency Provider Active Supervisory Geographer Relationship Specialty Start Date End Date Rashad Amy, LINE MAINTENANCE [address] [place] [address] PCP - General Family Medicine 11/17/22 Supervisory Geographer Relationship Specialty Start Date End Date Amy Solorzano, [employer] MAINTENANCE [address] [place] [address] PCP - General Family Medicine 11/17/22 Team Status: Inactive Member Role Status Dates [facility] Primary Care Provider A ctive Dr. Tim Vidal , DO Attending Provider, Emergency P rovider Active Team Status: Inactive Member Role Status Dates [facility] Primary Care Provider A ctive Dr. Rickey Shepard , DO Emergency Provider Active Supervisory Geographer Relationship Specialty Start Date End Date Amy Solorzano, LINE MAINTENANCE [address] [place] [address] PCP - General Family Medicine 11/17/22 Supervisory Geographer Relationship Specialty Start Date End Date Amy Solorzano, [employer] MA[employer]TENAN[employer] [address] [place] [address] PCP - General Family Medicine 11/17/22 Supervisory Geographer Relationship Specialty Start Date End Date Amy Solorzano [employer] [address] [place] [address] PCP - General Family Medicine 11/17/22 Supervisory Geographer Relationship Specialty Start Date End Date Amy Solorzano LINE MA[employer]TENANCE [address] [place] [address] PCP - General Family Medicine 11/17/22 Team Status: Active Member Role Status Dates Dr. Esther Cooney MD Family Provider Active No Primary Care Physician Primary Care Provider Active Team Status: Active Member Role Status No Primary Care Physician Primary Care Provider Active Dr. Javy Doss DO Emergency Provider Active Dr. Rickey Gifford DO Attending Provider Active Team Status: Inactive Member Role Status Dates No Primary Care Physician Primary Care Provider Active Dr. Deann Guerrero MD Attending Provider, Emergency Provider Active Team Status: Inactive Member Role Status No Primary Care Physician Primary Care Provider Active Dr. Fabricio Guevara MD Attending Provider, Emergency Pro vider Active Team Status: Active Member Role Status No Primary Care Physician Primary Care Provider Active Dr. Javy Doss DO Emergency Provider Active Dr. Abdirizak Forrest DPM Attending Provider Active Team Status: Inactive Member Role Status [facility] Primary Care Provider A ctive Dr. Rickey Shepard , DO Attending Provider, Emergency P ropatrickder Active Team Status: Inactive Member Role Status [...] Dr. Alex Christiansen DO Emergency Provider Active Supervisory Geographer Relationship Specialty Start Date End Date Amy Solorzano NP [address] [place] [id number] PCP - General Family Medicine 11/17/22 Team [...] Dr. Tesfaye Mitchell DO Emergency Provider Active [facility] Primary Care Provider A ctive Team Status: Inactive Member Role Status Dates Dr. Abdirizak Forrest DPM Attending Provider, Referring Provider Active [facility] Primary Care Provider A ctive Team Status: Inactive Member Role Status Dates Dr. Sophy Gibbons Primary Care Provider Active Drew Hinson MD Attending Provider, Emergency Provid er Active Team Status: Inactive Member Role Status Dates Dr. Tesfaye Mitchell DO Attending Provider, Emergency P tala Active [facility] Primary Care Provider A ctive Team Status: Inactive Member Role Status Dates [facility] Primary Care Provider A ctive Dr. Willie Dhillon MD Attending Provider, Emergency Provider Active Team Status: Inactive Member Role Status Dates [facility] Primary Care Provider A ctive Dr. Abdirizak Forrest , DPM Attending Provider, Referring Provider Active Supervisory Geographer Relationship Specialty Start Date End Date Amy Solorzano NP [address] [place] [address] PCP - General Family Medicine 11/17/22 Supervisory Geographer Relationship Specialty Start Date End Date Amy Solorzano NP [address] [place] [phone] PCP - General Family Medicine 11/17/22 Supervisory Geographer Relationship Specialty Start Date End Date Amy Solorzano NP [facility] [place] [phone] PCP - General Family Medicine 11/17/22 Supervisory Geographer Relationship Specialty Start Date End Date Amy Solorzano NP [facility] [place] [phone] PCP - General Family Medicine 11/17/22 Team Status: Active Member Role Status Dates Amy BARAHONA, LINE MAINTENANCE-C Primary Care Provider Activ e Team Status: Inactive Member Role Status Dates Amy BARAHONA, LINE MA[employer]TENANCE-C Primary Care Provider Activ e Start: October 17, 2024 End: October 17, 2024 Amy BARAHONA, LINE MAINTENANCE-C Attending Provider Active Start: October 17, 2024 End: October 17, 2024 Team Status: Inactive Member Role Status Dates Amy BARAHONA, [employer] MA[employer]TENANCE-C Primary Care Provider Activ e Start: October 25, 2024 End: October 25, 2024 Dr. Abdirizak Forrest DPM Attending Provider Active Start: October 25, 2024 End: October 25, 2024 Dr. Abdirizak Forrest DPM Referring Provider Active Start: October 25, 2024 End: October 25, 2024 Team Status: Active Member Role Status Dates Amy BARAHONA, LINE MA[employer]TENANCE-C Primary Care Provider Activ e Start: November 25, 2024 Drew Hinson MD Emergency Provider Active Star t: November 25, 2024 Dr. Brenda Rao MD Admit Provider Active St art: November 25, 2024 Dr. Brenda Rao MD Attending Provider Active Start: November 25, 2024 Team Status: Inactive Member Role Status Dates Amy BARAHONA, LINE MAINTENANCE-C Primary Care Provider Activ e Start: November [...] Active Member Role Status Dates Amy BARAHONA, LINE MAINTENANCE-C Primary Care Provider Activ e Start: November [...] Active Member Role Status Dates Amy BARAHONA, LINE MAINTENANCE-C Primary Care Provider Activ e Start: November [...] Active Member Role Status Dates Amy BARAHONA, LINE MAINTENANCE-C Primary Care Provider Activ e Start: November [...] Active Member Role Status Dates Amy BARAHONA, LINE MAINTENANCE-C Primary Care Provider Activ e Start: November [...] Active Member Role Status Dates Amy BARAHONA, LINE MAINTENANCE-C Primary Care Provider Activ e Start: November [...] Active Member Role Status Dates Amy BARAHONA, LINE MAINTENANCE-C Primary Care Provider Activ e Start: November [...] Active Member Role Status Dates Amy BARAHONA, LINE MAINTENANCE-C Primary Care Provider Activ e Start: November [...] Active Member Role Status Dates Amy BARAHONA, LINE MAINTENANCE-C Primary Care Provider Activ e Start: November [...] Inactive Member Role Status Dates Amy EDWARDSC, LINE MAINTENANCE-C Primary Care Provider Activ e Start: December 13, 2024 End: December 13, 2024 Amy EDWARDSC, LINE MAINTENANCE-C Referring Provider Active Start: December 13, 2024 End: December 13, 2024 MIGUEL A South Attending Provider Active Start: December 13, 2024 End: December 13, 2024 Team Status: Inactive Member Role Status Dates Amy EDWARDSC, LINE MAINTENANCE-C Primary Care Provider Activ e Start: December 13, 2024 End: December 13, 2024 MIGUEL A oSuth Attending Provider Active Start: December 13, 2024 End: December 13, 2024 MIGUEL A South Referring Provider Active Start: December 13, 2024 End: December 13, 2024 Team Status: Inactive Member Role Status Dates Amy EDWARDSC, [employer] MA[employer]TENANCE-C Primary Care Provider Activ e Start: December 25, 2024 End: December 25, 2024 MIGUEL A South Attending Provider Active Start: December 25, 2024 End: December 25, 2024 Kalee Peter Referring Provider Active Start: December 25, 2024 End: December 25, 2024 Team Status: Active Member Role Status Dates Amy EDWARDSC, LINE MAINTENANCE-C Primary Care Provider Activ e Start: December 30, 2024 Dr. Poli Barfield DO Emergency Provider Active Start : December 30, 2024 Dr. David Bain MD Admit Provider Active Sta rt: December 30, 2024 Dr. David Bain MD Attending Provider Active Start: December 30, 2024 Team Status: Inactive Member Role Status Dates Amy EDWARDSC, LINE MAINTENANCE-C Primary Care Provider Activ e Start: December [...] Member Role Status Dates Amy Solorzano JERRYC, LINE MAINTENANCE-C Primary Care Provider Activ e Start: December [...] Member Role Status Dates Amy Rashad EDWARDSC, LINE MAINTENANCE-C Primary Care Provider Activ e Start: December [...] Member Role Status Dates Amy Solorzano [place], LINE MAINTENANCE-C Primary Care Provider Activ e Start: December 31, 2024 Dr. Poli Barfield DO Emergency Provider Active Start : December 31, 2024 Dr. Dewayne Grant , Admit Provider Active Start: December 31, 2024 Dr. Dewayne Grant , Attending Provider Active Start: December 31, 2024 Team Status: Inactive Member Role Status Dates Amy Solorzano JERRYC, LINE MAINTENANCE-C Primary Care Provider Activ e Start: December 31, 2024 End: January 01, 2025 Dr. Poli Barfield DO Emergency Provider Active [...] Active Member Role Status Dates Amy EDWARDSC, LINE MAINTENANCE-C Primary Care Provider Activ e Start: January [...] Member Role Status Dates Amy Solorzano VSC, LINE MAINTENANCE-C Primary Care Provider Activ e Start: January 02, 2025 End: January 02, 2025 Dr. Poli Barfield , DO Emergency Provider Active Start : January 02, 2025 End: January 02, 2025 Team Status: Inactive Member Role Status Dates Amy Solorzano VSC, LINE MAINTENANCE-C Primary Care Provider Activ e Start: January 04, 2025 End: January 04, 2025 Dr. Perico Norman , DO Emergency Provider Active Start: January 04, 2025 End: January 04, 2025 Team Status: Active Member Role/Relationship Status Dates Amy Solorzano VSC, LINE MAINTENANCE-C Primary Care Provider Activ e Team Status: Inactive Member Role/Relationship Status Dates Amy Solorzano VSC, LINE MAINTENANCE-C Primary Care Provider Activ e Start: October 17, 2024 End: October 17, 2024 Amy Rashad VSC, LINE MAINTENANCE-C Attending Provider Active Start: October 17, 2024 End: October 17, 2024 Team Status: Inactive Member Role/Relationship Status Dates Amy Solorzano VSC, LINE MAINTENANCE-C Primary Care Provider Activ e Start: October 25, 2024 End: October 25, 2024 Dr. Abdirizak Forrest DPM Attending Provider Active Start: October 25, 2024 End: October 25, 2024 Dr. Abdirizak Forrest DPM Referring Provider Active Start: October 25, 2024 End: October 25, 2024 Team Status: Active Member Role/Relationship Status Dates Dr. Tony Dwyer MD Attending Provider Active Start: October 25, 2024 Dr. Abdirizak Forrest DPM Referring Provider Active Start: October 25, 2024 Team Status: Inactive Member Role/Relationship Status Dates Amy Rashad VSC, LINE MAINTENANCE-C Primary Care Provider Activ e Start: November [...] November 28, 2024 Team Status: Active Member Role/Relationship Status Dates Amy EDWARDS, LINE MAINTENANCE-C Primary Care Provider Activ e Start: November [...] November 25, 2024 Team Status: Active Member Role/Relationship Status Dates Amy Solorzano [facility], LINE MAINTENANCE-C Primary Care Provider Activ e Start: November [...] November 26, 2024 Team Status: Active Member Role/Relationship Status Dates Amy BARAHONA, LINE MAINTENANCE-C Primary Care Provider Activ e Start: November [...] November 26, 2024 Team Status: Active Member Role/Relationship Status Dates Amy BARAHONA, LINE MAINTENANCE-C Primary Care Provider Activ e Start: November [...] November 27, 2024 Team Status: Active Member Role/Relationship Status Dates Amy BARAHONA, LINE MAINTENANCE-C Primary Care Provider Activ e Start: November [...] November 27, 2024 Team Status: Active Member Role/Relationship Status Dates Amy BARAHONA, LINE MAINTENANCE-C Primary Care Provider Activ e Start: November 28, 2024 Drew Hinson MD Emergency Provider Active Star t: November 28, 2024 Dr. Brenda Rao MD Admit Provider Active St art: November 28, 2024 Dr. Brenda Rao MD Other Provider Active St art: November 28, 2024 Dr. Annailse Welch MD Other Provider Active S tart: November 28, 2024 Dr. Gale Lr , DO Other Provider Active Start : November 28, 2024 Clare GRADY, PA-C Attending Provider Active Start: November 28, 2024 Team Status: Active Member Role/Relationship Status Dates Amy EDWARDSC, LINE MAINTENANCE-C Primary Care Provider Activ e Start: November [...] Start : November 28, 2024 Team Status: Inactive Member Role/Relationship Status Dates Amy Solorzano VSC, LINE MAINTENANCE-C Primary Care Provider Activ e Start: December 13, 2024 End: December 13, 2024 Amy Solorzano VSC, LINE MAINTENANCE-C Referring Provider Active Start: December 13, 2024 End: December 13, 2024 MIGUEL A South Attending Provider Active Start: December 13, 2024 End: December 13, 2024 Team Status: Inactive Member Role/Relationship Status Dates Amy Solorzano VSC, LINE MAINTENANCE-C Primary Care Provider Activ e Start: December 13, 2024 End: December 13, 2024 MIGUEL A South Attending Provider Active Start: December 13, 2024 End: December 13, 2024 MIGUEL A South Referring Provider Active Start: December 13, 2024 End: December 13, 2024 Team Status: Inactive Member Role/Relationship Status Dates Amy Solorzano VSC, LINE MAINTENANCE-C Primary Care Provider Activ e Start: December 25, 2024 End: December 25, 2024 MIGUEL A South Attending Provider Active Start: December 25, 2024 End: December 25, 2024 Kalee Peter Referring Provider Active Start: December 25, 2024 End: December 25, 2024 Team Status: Inactive Member Role/Relationship Status Dates Amy Solorzano VSC, LINE MAINTENANCE-C Primary Care Provider Activ e Start: December [...] December 31, 2024 Team Status: Active Member Role/Relationship Status Dates Amy Solorzano VSC, LINE MAINTENANCE-C Primary Care Provider Activ e Start: December 30, 2024 Dr. Poli Barfield DO Emergency Provider Active Start : December 30, 2024 Dr. David Bain MD Admit Provider Active Sta rt: December 30, 2024 Dr. David Bain MD Attending Provider Active Start: December 30, 2024 Dr. David Bain MD Other Provider Active Sta rt: December 30, 2024 Team Status: Active Member Role/Relationship Status Dates Amy Solorzano VSC, LINE MAINTENANCE-C Primary Care Provider Activ e Start: December 31, 2024 Dr. Poli Barfield DO Emergency Provider Active Start : December 31, 2024 Dr. David Bain MD Admit Provider Active Sta rt: December 31, 2024 Dr. David Bain MD Attending Provider Active Start: December 31, 2024 Dr. David Bain MD Other Provider Active Sta rt: December 31, 2024 Team Status: Inactive Member Role/Relationship Status Dates Amy Solorzano VSC, LINE MAINTENANCE-C Primary Care Provider Activ e Start: December 31, 2024 End: January 01, 2025 Dr. Poli Barfield DO Emergency Provider Active Start : December 31, 2024 End: January 01, 2025 Dr. Dewayne Grant DO Admit Provider Active Start: December 31, 2024 End: January 01, 2025 Dr. Dewayne Grant , Other Provider Active Start: December 31, 2024 End: January 01, 2025 Dr. Frantz Coulter DO Attending Provider Active Start: December 31, 2024 End: January 01, 2025 Team Status: Active Member Role/Relationship Status Dates Amy Solorzano VSC, LINE MAINTENANCE-C Primary Care Provider Activ e Start: January 01, 2025 Dr. Poli Le , DO Emergency Provider Active Start : January 01, 2025 Dr. Dweayne Grant , DO Admit Provider Active Start: January 01, 2025 Dr. Dewayne Grant , DO Other Provider Active Start: January 01, 2025 Dr. Frantz Coulter , Attending Provider Active Start: January 01, 2025 Dr. Frantz Coulter , Other Provider Active S tart: January 01, 2025 Team Status: Inactive Member Role/Relationship Status Dates Amy Solorzano VSC, LINE MAINTENANCE-C Primary Care Provider Activ e Start: January 02, 2025 End: January 02, 2025 Dr. Poli Barfield , Emergency Provider Active Start : January 02, 2025 End: January 02, 2025 Team Status: Inactive Member Role/Relationship Status Dates Amy Solorzano VSC, LINE MAINTENANCE-C Primary Care Provider Activ e Start: January 04, 2025 End: January 04, 2025 Dr. Perico Norman , Emergency Provider Active Start: January 04, 2025 End: January 04, 2025 Team Status: Active Member Role/Relationship Status Dates Amy EDWARDSC, LINE MAINTENANCE-C Primary Care Provider Activ e Start: January 07, 2025 Dr. Fabricio Guevara MD Referring Provider Active S tart: January 07, 2025 Dr. Fabricio Guevara MD Emergency Provider Active S tart: January 07, 2025 Dr. Frantz Coulter , Admit Provider Active S tart: January 07, 2025 Dr. Frantz Coulter , Attending Provider Active Start: January 07, 2025 Team Status: Inactive Member Role/Relationship Status Dates Amy EDWARDSC, LINE MAINTENANCE-C Primary Care Provider Activ e Start: January 02, 2025 End: January 02, 2025 Dr. Poli Barfield DO Attending Provider Active Start : January 02, 2025 End: January 02, 2025 Dr. Poli Barfield , Emergency Provider Active Start : January 02, 2025 End: January 02, 2025 Team Status: Inactive Member Role/Relationship Status Dates Amy EDWARDSC, LINE MAINTENANCE-C Primary Care Provider Activ e Start: January 04, 2025 End: January 04, 2025 Dr. Perico Norman , Attending Provider Active Start: January 04, 2025 End: January 04, 2025 Dr. Perico Norman DO Emergency Provider Active Start: January 04, 2025 End: January 04, 2025 Team Status: Inactive Member Role/Relationship Status Dates Amy Solorzano JERRY, LINE MAINTENANCE-C Primary Care Provider Activ e Start: January 07, 2025 End: January 08, 2025 Dr. Fabricio Guevara MD Referring Provider Active S tart: January 07, 2025 End: January 08, 2025 Dr. Fabricio Guevara MD Emergency Provider Active S tart: January 07, 2025 End: January 08, 2025 Dr. Frantz Coulter DO Admit Provider Active S tart: January 07, 2025 End: January 08, 2025 Dr. Frantz Coulter DO Attending Provider Active Start: January 07, 2025 End: January 08, 2025 Team Status: Active Member Role/Relationship Status Dates Amy Rashad BARAHONA, LINE MAINTENANCE-C Primary Care Provider Activ e Start: January 07, 2025 Dr. Fabricio Guevara MD Referring Provider Active S tart: January 07, 2025 Dr. Fabricio Guevara MD Emergency Provider Active S tart: January 07, 2025 Dr. Frantz Coulter DO Admit Provider Active S tart: January 07, 2025 Dr. Frantz Coulter DO Attending Provider Active Start: January 07, 2025 Dr. Frantz Coulter DO Other Provider Active S tart: January 07, 2025 Team Status: Active Member Role/Relationship Status Dates Amy EDWARDS, LINE MAINTENANCE-C Primary Care Provider Activ e Start: January 08, 2025 Dr. Fabricio Guevara MD Referring Provider Active S tart: January 08, 2025 Dr. Fabricio Guevara MD Emergency Provider Active S tart: January 08, 2025 Dr. Frantz Coulter DO Admit Provider Active S tart: January 08, 2025 Dr. Frantz Coulter DO Attending Provider Active Start: January 08, 2025 Dr. Frantz Coulter DO Other Provider Active S tart: January 08, 2025 Supervisory Geographer Relationship Specialty Start Date End Date Physician, No Pcp PCP - General 01/12/25 Supervisory Geographer Relationship Specialty Start Date End Date Physician, No Pcp PCP - General 01/12/25 Supervisory Geographer Relationship Specialty Start Date End Date Nicole Lomax MD [address] [place] [phone] PCP - General Internal Medicine 01/15/25 Supervisory Geographer Relationship Specialty Start Date End Date Nicole Lomax MD [address] [place] [phone] PCP - General Internal Medicine 01/15/25 Team Status: Active Member Role/Relationship Status Dates Amy Rashad VSC, LINE MAINTENANCE-C Primary Care Provider Activ e Start: January 07, 2025 Dr. Fabricio Guevara MD Emergency Provider Active S tart: January 07, 2025 Dr. Frantz Coulter , Admit Provider Active S tart: January 07, 2025 Dr. Frantz Coulter DO Attending Provider Active Start: January 07, 2025 Dr. Frantz Coulter DO Other Provider Active S tart: January 07, 2025 Team Status: Active Member Role/Relationship Status Dates Amy Rashad VSC, LINE MAINTENANCE-C Primary Care Provider Activ e Start: January 08, 2025 Dr. Fabricio Guevara MD Emergency Provider Active S tart: January 08, 2025 Dr. Frantz Coulter DO Admit Provider Active S tart: January 08, 2025 Dr. Frantz Coulter DO Attending Provider Active Start: January 08, 2025 Dr. Frantz Coulter DO Other Provider Active S tart: January 08, 2025 Team Status: Inactive Member Role/Relationship Status Dates Amy Rashad VSC, LINE MAINTENANCE-C Primary Care Provider Activ e Start: January 31, 2025 End: January 31, 2025 Fartun Carbajal VSC, LINE MAINTENANCE-C Attending Provider Active Start: January 31, 2025 End: January 31, 2025 INFORMATION SOURCE (unrecogn ized section and content) DATE CREATED AUTHOR 01/24/2023 [facility] DATE CREATED AUTHOR AUTHOR'S ORGANIZ ATION 02/18/2023 [facility] DATE CREATED AUTHOR AUTHOR'S ORGANIZ ATION 04/19/2023 [facility] ([place]) DATE CREATED AUTHOR AUTHOR'S ORGANIZ ATION 02/02/2024 [facility] DATE CREATED AUTHOR AUTHOR'S ORGANIZ ATION 07/05/2024 [facility] DATE CREATED AUTHOR AUTHOR'S ORGANIZ ATION 01/19/2025 [facility] DATE CREATED AUTHOR AUTHOR'S ORGANIZ ATION 02/14/2025 [facility] Scheduled Active and Recently Administ ered [...] Mercado)1140 (Stopped - Provider: Tamica Penaloza RN) Scheduled Medication Order 01/10/2025 01/11/2025 01/12/2025 ketorolac (TORADOL) injection 15 mg (COMPLETED) 15 mg, intravenous, Once, On Wed01/12/25 at 1008, For 1 dose 121 (Given - Provid er: Gabby Ho RN) morphine injection 4 mg (COMPLETED) 4 mg, intravenous, Once, On Wed01/12/25 at 0901, For 1 dose 09 (Given - Provid er: Cecily Teran RN) ondansetron (PF) (ZOFRAN) injection 4 mg (COMPLETED) 4 mg, intravenous, Once, On Wed01/12/25 at 0901, For 1 dose 09 (Given - Provid er: Cecily Teran RN) sodium chloride 0.9 % bolus 1,000 mL (COMPLETED) 1,000 mL, intravenous, at 2,000 mL/hr, Administer over 30 Minutes, Once, On Wed01/12/25 at 0901, For 1 dose 09 (New Bag - Prov ider: Cecily Teran RN)121 (Stopped - Provider: Gabby Ho RN) Scheduled Medication Order 01/12/2025 01/13/2025 01/14/2025 HYDROmorphone (DILAUDID) injection 1 mg (COMPLETED) 1 mg, intravenous, Once, On 01/14/25 at 0248, For 1 dose 318 (Given - Provid er: Wali Springer RN) HYDROmorphone (DILAUDID) injection 1 mg (COMPLETED) 1 mg, intramuscular, Once, On Wed01/14/25 at 0645, For 1 dose 705 (Given - Provid er: Laura Henley RN) lactated Ringer's bolus 1,000 mL (COMPLETED) 1,000 mL, intravenous, at 1,000 mL/hr, Administer over 1 Hours, Once, On Wed01/14/25 at 0248, For 1 dose 705 (New Bag - Prov ider: Laura Henley RN)09 (Stopped - Provider: Laura Henley RN) metoclopramide (REGLAN) injection 10 mg (COMPLETED) 10 mg, intramuscular, Once, On 01/14/25 at 0645, For 1 dose, Doses LESS than or equal to 10 mg can be given IV push undiluted over 1 minute 705 (Given - Provid er: Laura Henley RN) ondansetron (PF) (ZOFRAN) injection 4 mg (COMPLETED) 4 mg, intravenous, Once, On Wed01/14/25 at 0248, For 1 dose 0320 (Given - Provid er: Wali Springer RN) Scheduled Medication Order 01/13/2025 01/14/2025 01/15/2025 droPERidol (INAPSINE) injection 1.25 mg (COMPLETED) 1.25 mg, intramuscular, Once, On Wed01/15/25 at 1932, For 1 dose, Emergency Departments, Operating areas, and Post-operative areas (one time doses) for patients who FAIL TO SHOW ADEQUATE RESPONSE to other treatments: -For doses GREATER than OR equal to 2.5 mg, ECG monitoring should be performed prior to treatment and continued for 2 to 3 hours after completing treatment -For doses LESS than 2.5 mg, ECG monitoring is NOT required Head Pain units if other agents are unsuccessful (MAX of 2.5 mg three times daily): -Monitor ECG at baseline and daily while on regimen, Has the patient failed to show an adequate response to other treatments? (See order restrictions above): Yes, Is a droperidol dose GREATER than OR equal to 2.5 mg being ordered? No 194 (Given - Provid er: Lolis Avelar RN) ketorolac (TORADOL) injection 15 mg (COMPLETED) 15 mg, intramuscular, Once, On Wed01/15/25 at 1803, For 1 dose 1816 (Given - Provid er: Lolis Avelar RN) Scheduled Medication Order 01/16/2025 01/17/2025 01/18/2025 haloperidol lactate (HALDOL) injection 2.5 mg (COMPLETED) 2.5 mg, intravenous, Once, On Shannan 01/18/25 at 0630, For 1 dose, May be ordered via either intramuscular or intravenous route. If ordered IV, maximum of 5 mg/minute. 0633 (Given - Provid er: Aletha Yoder RN) HYDROmorphone (DILAUDID) injection 1 mg (COMPLETED) 1 mg, intravenous, Once, On Shannan 01/18/25 at 0630, For 1 dose 0630 (Given - Provid er: Aletha Yoder RN) sodium chloride 0.9 % bolus 1,000 mL (COMPLETED) 1,000 mL, intravenous, at 2,000 mL/hr, Administer over 30 Minutes, Once, On Shannan 01/18/25 at 0610, For 1 dose 0630 (New Bag - Prov ider: Aletha Yoder RN)1102 (Stopped - Provider: Aletha Yoder RN) Ordered Prescriptions (unrec ognized section and content) Prescription Sig Dispense Quantity Refills Last Filled Start Date End Date ibuprofen (ADVIL,MOTRIN) 600 mg tablet Take 1 tablet (600 mg total) by mouth every 6 (six) hours if needed for mild pain or moderate pain (for pain) for up to 7 days. 28 each 01/12/2025 5 ondansetron ODT (ZOFRAN-ODT) 4 mg disintegrating tablet Dissolve 1 tablet (4 mg total) on top of the tongue every 8 (eight) hours if needed for nausea or vomiting for up to 7 days. 20 tablet 01/12/2025 5 Prescription Sig Dispense Quantity Refills Last Filled Start Date End Date ondansetron ODT (ZOFRAN-ODT) 4 mg disintegrating tablet Dissolve 1 tablet (4 mg total) on top of the tongue every 8 (eight) hours if needed for nausea or vomiting for up to 7 days. 20 tablet 01/14/2025 5 dicyclomine (BENTYL) 20 mg tablet Take 1 tablet (20 mg total) by mouth 2 (two) times a day for 10 days. 20 tablet 01/14/2025 5 Prescription Sig Dispense Quantity Refills Last Filled Start Date End Date aluminum-magnesium hydroxide 200-200 mg/5 mL suspension Take 15 mL by mouth every 6 (six) hours if needed for heartburn for up to 10 days. 355 mL 01/15/2025 5 famotidine (PEPCID) 20 mg tablet Take 1 tablet (20 mg total) by mouth 2 (two) times a day for 15 days. 30 tablet 01/15/2025 5 Prescription Sig Dispense Quantity Refills Last Filled Start Date End Date pantoprazole (PROTONIX) 40 mg EC tablet Take 1 tablet (40 mg total) by mouth 1 (one) time each day before breakfast for 14 days. Do not crush, chew, or split. 14 each 01/18/2025 FOR RECORDS PERTAINING TO PATIENTS WHO ARE [...] BE BASED ON THE PRIMARY CLINICAL RECORDS. [facility] [employer] [facility]. provides no warranty or guarantee of the accuracy or completeness of information in this document.
[2025-02-15 05:46] LABS: Internal QC Validated? YES +Cl - CLEAR BKGD; Pregnancy, Urine Negative Negative; Record Kit Lot#,Urine Preg 0000962302
[2025-02-15] MEDS: Lactated Ringers 1,000 ML 15 ML IV (06:19)
--- NOTE | 2025-02-15 06:30 | EGD_PTH ---
PATIENT: SHOLA PATTON LOC: EN U#:[id number] AGE/SX: 35/F ROOM: RE02/15/[address]: Dr. Venkatesh Torres DO : 1990 BED: DIS: 02/15/2025 SPEC #: [id number] RECD: 02/15/25 08:20 STATUS: LISA REEfrain #: [id number] NEISHA: 02/15/25 06:[address]: Venkatesh Torres DEPT: SURGICAL PATHOLOGY RECD BY: Charles Jacobsen ENTERED: 02/15/25 09:46 SP TYPE: EGD BIOPSY ISAURO DR: Amy Dasilva, [facility], CONVEYOR MECHANIC-C Tissues: A - Esophagus, NOS B - COLON BIOPSY Procedures: Surgery Specimen Level IV HEADER OPERATION: Colonoscopy, EGD, biopsy PRE-OP DIAGNOSIS: Constipation, nausea/vomiting, colitis TISSUE SUBMITTED: A- Distal esophagus biopsy, B- Random colonic biopsy MICROSCOPIC DIAGNOSIS A. Distal esophagus, biopsy: - Squamocolumnar mucosa with goblet cell metaplasia - see note. - Negative for dysplasia. Note: The diagnosis depends on the location of the biopsy and the extent of the mucosal irregularity. If the biopsy originates from the tubular esophagus and the mucosal irregularity extends at least 1 cm above the top of the gastric folds, this represents Pringle mucosa. If the biopsy originates from the gastric cardia and/or the mucosal irregularity is less than 1 cm in extent, this represents intestinal metaplasia. B. Colon, random biopsy: - No specific pathologic change. MICROSCOPIC DESCRIPTION Slides are reviewed. GROSS DESCRIPTION A. Received in fixative is one container labeled with the patient's name and designated Distal esophagus biopsy. The specimen consists of two irregular fragments of light arevalo soft tissue that measure 0.3 and 0.6 cm. The specimen is totally submitted in one cassette. B. Received in fixative is one container labeled with the patient's name and designated Random colonic biopsy. The specimen consists of multiple irregular fragments of light arevalo soft tissue that in aggregate measure 1.5 x 0.7 x 0.1 cm. The specimen is totally submitted in one cassette. DC 02/15/2025 CPT:93855b1
--- NOTE | 2025-02-15 06:44 | PCM.HP.STD ---
HPI - General General Date of Admission: 02/15/25 Date of Service: 02/15/25 Chief Complaint: colitis HPI Narrative GHISLAINE PATTON, is a 35 F who presents for the evaluation of colitis [facility] ED 5.. with constipation and abd pain for a few days. Pt took laxative and has watery loose stool but felt she still had stool stuck. Biochemical work up significant for leukocytosis 27, hgb 14.1, lactic acid 1.5. X ray showing large fecal burden with air dilation. CT showing fecal impaction with inflammation and thickening of the colon wall consistent with proctitis and colitis. Started on IV atb and admitted. Pt had enemas and laxatives which produced BM. She endorses marijuana use and n/v. She was caught in her room inducing vomiting. Pt here today for continued issues with n/v and constipation. She does feel the nausea has improved since the hospital. She is able to eat foods but cannot keep water down. She was unable to finish course of antibiotics due to vomiting them up. Sopalamine patch does not help much. She endorses having nausea for some time. She has been on Trulicity for about a month for her diabetes. She has not smoked marijuana in 2-3 weeks. Prior to starting marijuana use a few years ago she endorses having GI issues. She has never had a colonoscopy but did have an EGD in 2022. She also notes having a GES at another facility a few years back. [facility] Medical History History of IBS Former smoker Borderline personality disorder Depression with anxiety Obesity (BMI 30-39.9) Medical non-compliance Cyclic vomiting syndrome Diabetic ketoacidosis Diabetes Wears glasses History of MRSA infection Borderline personality disorder Alcohol use Insulin dependent diabetes mellitus Dietary restriction Heartburn Smoker Shortness of breath on exertion Leg cramps Type 2 diabetes mellitus with peripheral neuropathy Neuropathy, diabetic Cannabis abuse Elevated serum creatinine Failure of outpatient treatment Nausea and vomiting Diabetes mellitus with diabetic polyneuropathy Type 2 diabetes mellitus with foot ulcer Anxiety Depression Constipation Asthma Diabetes Home Medications ?Medication ?Instructions ?Recorded ?Last Taken ?Type insulin glargine 100 unit/mL (3 25 unit subcut BID diabetes 08/12/22 02/14/25 08:00 History mL) subcutaneous pen (Lantus Solostar U-100 Insulin) dulaglutide 4.5 mg/0.5 mL 4.5 mg subcut TH diabetes 11/25/24 02/08/25 History subcutaneous pen injector (Trulicity) linaclotide 145 mcg capsule 145 mcg PO QAM IBS #30 caps 12/13/24 02/14/25 08:00 Rx (Linzess) promethazine 25 mg tablet 25 mg PO Q6H PRN nausea and 01/01/25 Unknown Rx vomiting #25 tabs sertraline 25 mg tablet (Zoloft) 50 mg PO DAILY 02/12/25 02/14/25 08:00 History Allergy/AdvReac Type Severity Reaction Status Date / Time No Known Allergies Allergy Verified 02/15/25 05:52 Family History Other Bleeding disorder Cancer Diabetes Hypertension Surgical History Hx of foot surgery Hx of foot surgery Social History Smoking Status: Former smoker alcohol intake: never substance use type: does not use what type of physical activity do you participate in: none ROS Constitutional Constitutional: Denies fatigue, fever(s), poor appetite, weight gain or weight loss Gastrointestinal Gastrointestinal: Denies belching, bloating, change in bowel habits, change in stool character, chewing difficulty, coffee ground emesis, constipation, cramping, diarrhea, dyspepsia, dysphagia, early satiety, excessive flatus, fecal incontinence, heartburn, hematemesis, hematochezia, hemorrhoids, loose stools, melena, nausea, odynophagia, rectal bleeding, tenesmus, vomiting or weight changes Vital Signs Vital Signs Vital Signs: 02/15/25 06:00 02/15/25 06:02 Pulse Rate 93 Respiratory Rate 16 Respiratory Pattern Normal Blood Pressure 116/78 Blood Pressure Mean 90 Blood Pressure Source Monitor Blood Pressure Position Semi-Fowlers Blood Pressure Location Left Arm Pulse Ox 99 Oxygen Delivery Method Room Air Weight Weight: 234 lb Body Mass Index (BMI) 37.8 Physical Exam Const alert, oriented x3, no apparent distress and healthy appearing General Appearance: cooperative GI normal to inspection, nondistended, normoactive bowel sounds, soft to palpation, non-tender and non-distended Percussion: normal to percussion Rectal Exam: deferred Results Lab / Micro Data Labs: Laboratory Results - last 24 hr 02/15/25 05:35: Urine Test Negative 02/15/25 05:53: POC Glucose 139 H Assessment & Plan Assessment/Plan (1) Acute proctitis: (2) Abdominal pain: (3) Colitis: PLAN: Assessment and Plan Assessment and Plan (1) Constipation: Plan: Ghislaine is a 34 yo female pt here today for f/u after [facility] admission. Pt was hospitalized due to severe constipation and impaction leading to stercoral proctitis. Pt has been feeling a little better since being home. She continues to have constipation and has not been taking her miralax daily/ She is just taking stimulate laxative as needed. I have prescribed Linzess 145 mcg for her to take daily as she struggle with the volume of miralax drink. If she does not have a bm she will contact our office and will order X ray to rule out impaction. Pt also has shrugged with n/v for some time now. She has a hx of diabetes and re started her Trulicity about one month ago. I think she may delayed motility causing n/v as well as her constipation. Patient does endorse a 3 year hx of smoking marijuana however she has not smoked in 2-3 weeks. I advised continued cessation. I have ordered GES and will consider treatment pending results. I will order CBC to re check WBC count. SHe will also be scheduled for EGD and colonoscopy. -EGD and colonoscopy -GES -Marijauna cessation -Start Linzess -CBC and CMP (2) Nausea & vomiting: Status: Acute (3) Colitis: Status: Acute Orders: Orders Gastric Emptying Study 10 Days R11.2 - Nausea with vomiting, unspecified CBC W/Diff, Automated Today K52.9 - Noninfective gastroenteritis and colitis, unspecified, R11.2 - Nausea with vomiting, unspecified Comprehensive Metabolic Profil Today K52.9 - Noninfective gastroenteritis and colitis, unspecified, R11.2 - Nausea with vomiting, unspecified Medications:
--- NOTE | 2025-02-15 06:58 | PCM.PRE.AN2 ---
ASA Classification* ASA Classification ASA Classification: 3 Assessment & Plan Anesthesia* Anesthesia Assessment Anesthesia Assessment: Discussed sedation and/or anesthesia options, risks, benefits, and alternatives with patient/parents/legal guardian/POA. Questions invited. The patient/parents/legal guardian/POA seems to understand and agrees to proceed with anesthesia plan. Reviewed the physical assessment, medical history, allergy history and patient home medications list prior to surgery/procedure/anesthetic and documented any changes. Performed airway and anesthesia risk assessments. Anesthesia Type Anesthesia Type: MAC Anesthesia Focused Assessment* Pulse Rate: 93 Blood Pressure: 116/78 Respiratory Rate: 16 Pulse Ox: 99 Airway Assessment Mouth opens: >3 cm Mallampati Score: II Labs Anesthesia Preop lab: CBC WBC 10.5 K/mm3 (4.4-11.0) 01/31/25 14:52 01/31/25 RBC 4.53 M/mm3 (4.2-5.4) 01/31/25 14:52 01/31/25 Hgb 12.6 g/dL (12.0-15.0) 01/31/25 14:52 01/31/25 Hct 38.3 % (37-47) 01/31/25 14:52 01/31/25 Plt Count 384 K/mm3 (150-450) 01/31/25 14:52 01/31/25 CHEMISTRY Potassium 4.3 mmol/L (3.3-5.1) 01/31/25 14:52 01/31/25 Sodium 134 mmol/L (133-145) 01/31/25 14:52 01/31/25 Magnesium 1.8 mg/dL (1.5-2.2) 01/04/25 06:18 01/04/25 Phosphorus 1.5 mg/dL (2.7-4.5) L 12/30/24 10:50 12/30/24 BUN 16 mg/dL (4-19) 01/31/25 14:52 01/31/25 Creatinine 0.94 mg/dL (0.70-1.20) 01/31/25 14:52 01/31/25 Glucose 205 mg/dL (70-99) H 01/31/25 14:52 01/31/25 POC Glucose 139 mg/dL (74-106) H 02/15/25 05:53 02/15/25 TSH 0.649 uIU/mL (0.300-4.200) 12/31/24 22:38 12/31/24 COAG PT 14.8 SECONDS (11.7-14.9) 03/06/23 09:10 03/06/23 HCG, Quant < 1 mIU/mL (1-3) 10/29/21 09:35 10/29/21 Urine Test Negative Negative 02/15/25 05:35 02/15/25 Pre-Assessment Diagnosis/Proposed Procedure Planned Operative Procedure(s): EGD, COLONOSCOPY Anesthesia History 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 When Was Last Pacemaker Check QUESTION #4 FULL TEXT: You/Your Family Experience fever (hyperthermia) with Anesthesia Last Oral Intake Last Oral intake: Last Oral Intake NPO since 04:30 02/15/25 06:02 Meds taken in AM with sips of No 02/15/25 06:02 water? Meds patient instructed to take am of surgery PONV PONV - slotter operator: PONV - slotter operator Female Yes 02/12/25 14:22 HX of Motion Sickness No 02/12/25 14:22 HX of N/V After Surgery No 02/12/25 14:22 Non-Smoker Yes 02/12/25 14:22 Duration of Surgery greater No 02/12/25 14:22 than 60 minutes Number of Risk Factors 2 02/12/25 14:22 PONV Score Moderate Risk 02/12/25 14:22 Height & Weight Height & Weight: Anesthesia: Height & Weight Height 5 ft 6 in 02/15/25 06:02 Weight: 106.141 kg 02/15/25 06:02 Body Mass Index (BMI) 37.8 02/15/25 06:02 Respiratory Assessment Respiratory Assessment - slotter operator: Respiratory Tract Infection Hx - slotter operator Hx Respiratory Tract Infection No 02/12/25 14:22 STOP Sleep Apnea STOP Sleep Apnea - slotter operator: STOP Sleep Apnea - slotter operator Hx Hypertension No 02/12/25 14:22 Hx Sleep Apnea No 02/12/25 14:22 CPAP BIPAP Do you snore loudly (louder No 02/12/25 14:22 than talking or can be heard Do you often feel tired/ No 02/12/25 14:22 fatigued/ sleepy during daytime? Has anyone observed you stop No 02/12/25 14:22 breathing during sleep? STOP Results Negative 02/12/25 14:22 QUESTION #5 FULL TEXT : Do you snore loudly (louder than talking or can be heard through closed doors)? 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 Specify any problems Hx of Preganancy in last 3 No 02/12/25 14:22 Months Nurse Filling Out Transfusion MGRIFFITH 02/12/25 14:22 & Questions: Date: 02/12/25 02/12/25 14:22 Time: 14:24 02/12/25 14:22 Patient unable to answer at this time (ie. confused, unrespo /Reproduction History /Reproductive History - slotter operator: /Reproductive Hx- slotter operator Hx Now No 02/12/25 14:22 Gestational Age (in weeks): EDC: Hx Hx Para Hx Section SAB No 02/12/25 14:22 Active Medications Active Medications: Current Medications Generic Name Dose Route Start Last Admin Trade Name Freq PRN Reason Stop Dose Admin Lactated Ringer's 1,000 mls @ 15 mls/hr 02/15/25 05:45 02/15/25 06:19 IV 15 mls/hr .Q48H SKYLER Administration PFSH Medical History History of IBS Former smoker Borderline personality disorder Depression with anxiety Obesity (BMI 30-39.9) Medical non-compliance Cyclic vomiting syndrome Diabetic ketoacidosis Diabetes Wears glasses History of MRSA infection Borderline personality disorder Alcohol use Insulin dependent diabetes mellitus Dietary restriction Heartburn Smoker Shortness of breath on exertion Leg cramps Type 2 diabetes mellitus with peripheral neuropathy Neuropathy, diabetic Cannabis abuse Elevated serum creatinine Failure of outpatient treatment Nausea and vomiting Diabetes mellitus with diabetic polyneuropathy Type 2 diabetes mellitus with foot ulcer Anxiety Depression Constipation Asthma Diabetes Home Medications ?Medication ?Instructions ?Recorded ?Last Taken ?Type insulin glargine 100 unit/mL (3 25 unit subcut BID diabetes 08/12/22 02/14/25 08:00 History mL) subcutaneous pen (Lantus Solostar U-100 Insulin) dulaglutide 4.5 mg/0.5 mL 4.5 mg subcut TH diabetes 11/25/24 02/08/25 History subcutaneous pen injector (Trulicity) linaclotide 145 mcg capsule 145 mcg PO QAM IBS #30 caps 12/13/24 02/14/25 08:00 Rx (Linzess) promethazine 25 mg tablet 25 mg PO Q6H PRN nausea and 01/01/25 Unknown Rx vomiting #25 tabs sertraline 25 mg tablet (Zoloft) 50 mg PO DAILY 02/12/25 02/14/25 08:00 History Allergy/AdvReac Type Severity Reaction Status Date / Time No Known Allergies Allergy Verified 02/15/25 05:52 Family History Other Bleeding disorder Cancer Diabetes Hypertension Surgical History Hx of foot surgery Hx of foot surgery Social History Smoking Status: Former smoker alcohol intake: never substance use type: does not use what type of physical activity do you participate in: none Review of Systems (Anesthesia) ROS Narrative System reviewed and no additional complaints, except as documented.
--- NOTE | 2025-02-15 07:23 | PCM.POST.ANE ---
Anesthesia: Postop Eval I Current Vital Signs Temperature: 97.1 F Pulse Rate: 67 Blood Pressure: 140/83 Respiratory Rate: 16 Pulse Ox: 100 Oxygen Delivery Method: Room Air Assessment Airway patent: Yes Spontaneous unlabored respirations: Yes Mental status: Awake and Calm nausea: No Vomiting: No Anesthesia Complication: No Fluid Hydration Crystalloid volume administer (ml): 400 Total IV fluid infused: 400 Progress Note Anesthesia document: Postop Eval 1 completed: Yes
--- NOTE | 2025-02-15 07:24 | OP.PROVAT_ITS ---
02/15/2025 Amy Dasilva [facility], [employer]raiser-c Re : Upper GI endoscopy procedure for Ghislaine Dasilva This procedure was performed on February. My impressions and recommendations are as follows: Impressions : - Z-line irregular, 40 cm from the incisors. Biopsied. - Gastroparesis, secondary to diabetes mellitus type I. - A large amount of food (residue) in the stomach. - No gross lesions in the entire examined duodenum. Recommendations : - Discharge patient to home. - Resume previous diet. - Continue present medications. - Await pathology results. - Gastric emptying study My findings are described in the full procedure note, which is enclosed. If I can be of further assistance, please feel free to contact me at . Sincerely, Venkatesh Torres, 02/15/2025 7:23:10 AM This report has been signed electronically.
--- NOTE | 2025-02-15 07:24 | OP.EGD_ITS ---
Patient Name: Ghislaine Givens Procedure Date: 02/15/2025 6:20 AM Date of : 1990 Age: 35 Procedure: Upper GI endoscopy Indications: Epigastric abdominal pain, Abdominal pain in the left lower quadrant, Functional Dyspepsia, Indigestion, Suspected esophageal reflux Providers: Venkatesh Torres DO Medicines: Monitored Anesthesia Care Patient Profile: This is a 35 year old female. Refer to note in patient chart for documentation of history and physical. Patient has symptoms of acute abdominal cramping, chronic abdominal distention, acute epigastric abdominal pain, acute dyspepsia, chronic heartburn and chronic nausea. Complications: No immediate complications. Procedure: Pre-Anesthesia Assessment: - Prior to the procedure, a History and Physical was performed, and patient medications and allergies were reviewed. The patient is competent. The risks and benefits of the procedure and the sedation options and risks were discussed with the patient. All questions were answered and informed consent was obtained. Patient identification and proposed procedure were verified by the physician in the pre-procedure area. Mental Status Examination: alert and oriented. Airway Examination: normal oropharyngeal airway and neck mobility. Respiratory Examination: clear to auscultation. CV Examination: normal. Prophylactic Antibiotics: The patient does not require prophylactic antibiotics. Prior Anticoagulants: The patient has taken no anticoagulant or antiplatelet agents except for NSAID medication. ASA Grade Assessment: II - A patient with mild systemic disease. After reviewing the risks and benefits, the patient was deemed in satisfactory condition to undergo the procedure. The anesthesia plan was to use monitored anesthesia care (MAC). Immediately prior to administration of medications, the patient was re-assessed for adequacy to receive sedatives. The heart rate, respiratory rate, oxygen saturations, blood pressure, adequacy of pulmonary ventilation, and response to care were monitored throughout the procedure. The physical status of the patient was re-assessed after the procedure. After obtaining informed consent, the endoscope was passed under direct vision. Throughout the procedure, the patient's blood pressure, pulse, and oxygen saturations were monitored continuously. The Colonoscope was introduced through the mouth, and advanced to the third part of the duodenum. Small bowel enteroscopy was deemed necessary. The upper GI endoscopy was accomplished without difficulty. The patient tolerated the procedure well. Scope In: 7:01:05 AM Scope Out: 7:03:36 AM Total Procedure Duration Time 0 hours 2 minutes 31 seconds Findings: The Z-line was irregular and was found 40 cm from the incisors. Biopsies were taken with a cold forceps for histology. Verification of patient identification for the specimen was done. Estimated blood loss was minimal. Suspect gastroparesis due to absence of peristalsis, patient symptoms and retained gastric contents. A large amount of food (residue) was found in the entire examined stomach. No gross lesions were noted in the entire examined duodenum. Impression: - Z-line irregular, 40 cm from the incisors. Biopsied. - Gastroparesis, secondary to diabetes mellitus type I. - A large amount of food (residue) in the stomach. - No gross lesions in the entire examined duodenum. Recommendation: - Discharge patient to home. - Resume previous diet. - Continue present medications. - Await pathology results. - Gastric emptying study Procedure Code(s): --- Professional --- 20343, Small intestinal endoscopy, enteroscopy beyond second portion of duodenum, not including ileum; with biopsy, single or multiple CPT copyright 2021 [employer]. All rights reserved. The codes documented in this report are preliminary and upon client specialist review may be revised to meet current compliance requirements. Venkatesh Torres DO 02/15/2025 7:23:10 AM This report has been signed electronically. Number of Addenda: 0 Note Initiated On: 02/15/2025 6:20 AM
--- NOTE | 2025-02-15 07:25 | OP.COLON_ITS ---
Patient Name: Ghislaine Givens Procedure Date: 02/15/2025 7:03 AM Date of : 1990 Age: 35 Procedure: Colonoscopy Indications: Abdominal pain in the left lower quadrant, Abdominal pain in the right lower quadrant, Abdominal pain in the right upper quadrant, Lower abdominal pain, Chronic diarrhea Providers: Venkatesh Torres DO Medicines: Monitored Anesthesia Care Patient Profile: This is a 35 year old female. Refer to note in patient chart for documentation of history and physical. Patient has symptoms of acute abdominal cramping, chronic abdominal distention, acute epigastric abdominal pain, acute dyspepsia, chronic heartburn and chronic nausea. Last Colonoscopy: none. The patient's first colonoscopy is today. Complications: No immediate complications. Procedure: Pre-Anesthesia Assessment: - Prior to the procedure, a History and Physical was performed, and patient medications and allergies were reviewed. The patient is competent. The risks and benefits of the procedure and the sedation options and risks were discussed with the patient. All questions were answered and informed consent was obtained. Patient identification and proposed procedure were verified by the physician in the pre-procedure area. Mental Status Examination: alert and oriented. Airway Examination: normal oropharyngeal airway and neck mobility. Respiratory Examination: clear to auscultation. CV Examination: normal. Prophylactic Antibiotics: The patient does not require prophylactic antibiotics. Prior Anticoagulants: The patient has taken no anticoagulant or antiplatelet agents except for NSAID medication. ASA Grade Assessment: II - A patient with mild systemic disease. After reviewing the risks and benefits, the patient was deemed in satisfactory condition to undergo the procedure. The anesthesia plan was to use monitored anesthesia care (MAC). Immediately prior to administration of medications, the patient was re-assessed for adequacy to receive sedatives. The heart rate, respiratory rate, oxygen saturations, blood pressure, adequacy of pulmonary ventilation, and response to care were monitored throughout the procedure. The physical status of the patient was re-assessed after the procedure. After I obtained informed consent, the scope was passed under direct vision. Throughout the procedure, the patient's blood pressure, pulse, and oxygen saturations were monitored continuously. The Colonoscope was introduced through the anus and advanced to the cecum, identified by appendiceal orifice and ileocecal valve. The colonoscopy was performed without difficulty. The patient tolerated the procedure well. The quality of the bowel preparation was poor. The ileocecal valve, appendiceal orifice, and rectum were photographed. Scope In: 7:05:12 AM Scope Withdrawal Time 0 hours 6 minutes 33 seconds Scope Out: 7:15:04 AM Total Procedure Duration Time 0 hours 9 minutes 52 seconds Findings: The perianal and digital rectal examinations were normal. Stool was found in the entire colon. An area of mildly congested mucosa was found in the entire colon. Biopsies were taken with a cold forceps for histology. Verification of patient identification for the specimen was done. Estimated blood loss was minimal. Impression: - Preparation of the colon was poor. - Stool in the entire examined colon. - Congested mucosa in the entire examined colon. Biopsied. Recommendation: - Discharge patient to home. - Resume previous diet. - Continue present medications. - Await pathology results. - Repeat colonoscopy because the bowel preparation was poor. Procedure Code(s): --- Professional --- 87343, Colonoscopy, flexible; with biopsy, single or multiple CPT copyright 2021 [employer]. All rights reserved. The codes documented in this report are preliminary and upon political cartoonist review may be revised to meet current compliance requirements. Venkatesh Torres DO 02/15/2025 7:25:08 AM This report has been signed electronically. Number of Addenda: 0 Note Initiated On: 02/15/2025 7:03 AM
--- NOTE | 2025-02-15 07:26 | OP.PROVAT_ITS ---
02/15/[address] [facility] Re : Colonoscopy procedure for Ghislaine Dasilva This procedure was performed on February. My impressions and recommendations are as follows: Impressions : - Preparation of the colon was poor. - Stool in the entire examined colon. - Congested mucosa in the entire examined colon. Biopsied. Recommendations : - Discharge patient to home. - Resume previous diet. - Continue present medications. - Await pathology results. - Repeat colonoscopy because the bowel preparation was poor. My findings are described in the full procedure note, which is enclosed. If I can be of further assistance, please feel free to contact me at . Sincerely, Venkatesh Torres, 02/15/2025 7:25:08 AM This report has been signed electronically.
--- NOTE | 2025-02-15 08:09 | PCM.POSTANE2 ---
Anesthesia Postop Eval I Sum Postop Eval Completion status Anesthesia document: Postop Eval 1 completed: Yes Anesthesia Postop Eval I Summary Anesthesia Postop Eval I Summary: Anesthesia Postop Eval I: Assessment Summary Airway patent Yes 02/15/25 07:25 [email or web address] Spontaneous unlabored Yes 02/15/25 07:25 [email or web address] respirations Mental status Awake,Calm 02/15/25 07:25 [email or web address] nausea No 02/15/25 07:25 [email or web address] Vomiting No 02/15/25 07:25 [email or web address] Anesthesia Postop Eval I: Fluid Summary Crystalloid volume administer 400 02/15/25 07:25 [email or web address] (ml) Colloids volume administered ( ml) Blood Product volume administered (ml) Total IV fluid infused 400 02/15/25 07:25 [email or web address] Anesthesia Postop Eval I: Summary Notes Anesthesia Complication No 02/15/25 07:25 [email or web address] Anesthesia Complication Comment: Post-operative progress note Anesthesia: Postop Eval II Evaluation Mental status: Awake Pain Level: 0 nausea: No Vomiting: No
== END 2025-02-15 07:58 | disposition home or self-care (01) ==
LOC: EN 05:27 → AC 05:28
PROVIDERS: Anesthesiology; PCP Nurse Practitioner Family; Referring Provider Nurse Practitioner Family; Visit Provider Internal Medicine Gastroenterology
PROC: 0DJD8ZZ Inspection of Lower Intestinal Tract, Via Natural or Artificial Opening Endoscopic (ICD-10-PCS; CPT 45378; principal; 2025-02-15 06:25)
DX: E11.43 Type 2 diabetes mellitus with diabetic autonomic (poly)neuropathy (principal); F60.3 Borderline personality disorder; Z79.4 Long term (current) use of insulin; E11.42 Type 2 diabetes mellitus with diabetic polyneuropathy; K22.70 Barrett's esophagus without dysplasia; K62.89 Other specified diseases of anus and rectum; K52.9 Noninfective gastroenteritis and colitis, unspecified; K31.84 Gastroparesis; K59.00 Constipation, unspecified; Z79.85 Long-term (current) use of injectable non-insulin antidiabetic drugs; Z79.899 Other long term (current) drug therapy; Z87.891 Personal history of nicotine dependence
CPT/HCPCS: 43239; 45380; 81025; 82962; 88305; J2405